=== PATIENT | female | born 1960 | race Caucasian/White ===

== ENCOUNTER 2024-02-22 13:14 | Outpatient (OUT) | payer MEDICARE, MEDICAID, SELFPAY ==
--- NOTE | 2024-02-22 14:32 | P.CN_ITS ---
Consult Note: HPI Data of Consult Patient: new to practice Consult date: 02/22/24 Requesting Physician: Ligia Root MD Primary Care Provider: RAJNI CARDOZO Consult Narrative Reason for consult: left low back pain Narrative: 63yof who presents for evaluation. worsening left low back pain for past 3 months. became worse after a fall. evaluated by spinal surgeon, who believes it is sij mediated. imaging shows multilevel spinal degeneration and sij degeneration. has engaged in a series of provider directed home exercises >6 weeks, without benefit. uses tylenol and advil. denies adverse med side effects. cc:: CC: Ligia Root MD Review of Systems ROS Status of ROS 10 or more systems reviewed and unremark able except as noted in history and below Exam Narrative Exam Narrative: Psych-alert and oriented x 3. Attentive and appropriate, constitutionally normal, displays normal mood and affect per situation.? There are no obvious deficits in memory, reasoning, or intellect.? Skin-no obvious rashes, bruising, erythema noted to the patient's area of pain. Extremities- extremities are warm with minimal edema and palpable pulses. Lumbar-no significant tenderness to palpation noted in the lumbar spine and paraspinal musculature.? Pain is elicited with extension, and lateral rotation of the lumbar spine. Range of motion is slightly diminished with these motions due to pain. Facet loading maneuvers are positive bilaterally and do appear to be concordant with the patient's normal complaints of pain.? Sacroiliac - tender to palpation over left PSIS. Positive Kunal's on left. Positive thigh thrust on left. Coordination remains intact.? Gait remains non-antalgic. Assessment and Plan Assessment and Plan (1) Sacroiliac joint disease: Plan 63yof who presents for evaluation. failed conservative measures, as noted. imaging reviewed, as noted. given symptoms and imaging, prudent to attempt left sij injection under fluoroscopic guidance. she is in agreement. meds reviewed. will trial celebrex 200mg bid prn. follow up after procedure.
== END 2024-02-22 13:15 | disposition home or self-care (01) ==
PROVIDERS: PCP Internal Medicine; Visit Provider Anesthesiology
DX: M53.3 Sacrococcygeal disorders, not elsewhere classified (principal)
CPT/HCPCS: G0463

== ENCOUNTER 2024-02-29 07:33 | Day surgery (SDC) | payer MEDICARE, MEDICAID, SELFPAY ==
[2024-02-29 07:47] VITALS: BP 140/88; PULSE 87; TEMP 36.3; O2SAT 96
[2024-02-29 08:29] VITALS: BP 114/71; BP 128/69; PULSE 77; PULSE 81; O2SAT 92; O2SAT 93
[2024-02-29] MEDS: IOHEXOL 240 MG/ML - 10 ML VIAL 24 MG INJ (08:30)
[2024-02-29] MEDS: BUPIVACAINE HCL 0.25% PF 25 MG/10 ML VIAL 2 ML INJ (08:30)
[2024-02-29] MEDS: LIDOCAINE HCL 2% 400 MG/20 ML MDV INJ (08:30)
[2024-02-29] MEDS: TRIAMCINOLONE ACETONIDE 40 MG/ML VIAL INJ (08:31)
--- NOTE | 2024-02-29 08:31 | W.PM.PROCNOT ---
Date of procedure: 02/29/24 Pre-op diagnosis: Pain due to left sacroiliitis Post-op diagnosis: same as pre-op Procedure: Procedure: Left sacroiliac joint injection Medications: Bupivacaine 0.25% 3cc, kenalog 40mg After informed consent was obtained, the patient was brought to the medical procedure unit and placed in the prone position, when a timeout was completed verifying correct patient, procedure, site, positioning, implant, and/or special equipment.? The skin overlying the area was prepped and draped in standard sterile fashion using alcohol.? A 25-gauge needle was inserted towards the left sacroiliac joint under direct fluoroscopic imaging.? Needle tip was advanced until the joint was encountered.? We instilled a total of 2 mL of solution.? Postoperatively needles were removed.? The patient tolerated the procedure well without complication.? The patient reported reduction in pain symptoms postoperatively. Anesthesia: Local Surgeon: Ligia Root Pathology: none sent Condition: stable Disposition: no change
== END 2024-02-29 08:36 | disposition home or self-care (01) ==
LOC: SURGOUT 07:34
PROVIDERS: PCP Internal Medicine; Visit Provider Anesthesiology
DX: M46.1 Sacroiliitis, not elsewhere classified (principal)
CPT/HCPCS: 27096; J0665; J3301; Q9966

== ENCOUNTER 2024-03-09 09:49 | Outpatient (OUT) | payer MEDICARE, MEDICAID, SELFPAY ==
--- NOTE | 2024-03-09 10:14 | P.CN_ITS ---
Consult Note: HPI Data of Consult Patient: new to practice Consult date: 02/22/24 Requesting Physician: Harper Alvarez NP Primary Care Provider: RAJNI CARDOZO Consult Narrative Reason for consult: left low back pain Narrative: 63yof who presents for evaluation. worsening bilateral low back pain for past 3 months. became worse after a fall. evaluated by spinal surgeon, who believes it is sij mediated. imaging shows multilevel spinal degeneration and sij degeneration. has engaged in a series of provider directed home exercises >6 weeks, without benefit. uses celebrex 100mg bid and tylenol. denies adverse med side effects. recent left SIJ injection providing 80% improvement ongoing. pt would like to discuss moderate to severe right SIJ pain. today 6/10 increasing to 10/10 with standing, walking, stairs, bending, activity. Pain improved with sitting, lying, heat, and sleep. cc:: CC: Harper Alvarez NP Review of Systems ROS Status of ROS 10 or more systems reviewed and unremark able except as noted in history and below Musculoskeletal Reports: joint pain PFSH PFSH Medical History (Updated 02/24/24 @ 10:42 by Consuelo Cotto RN) Rheumatoid arthritis ?M06.9 - Rheumatoid arthritis, unspecified (ICD-10) Anemia ?D64.9 - Anemia, unspecified (ICD-10) Panic disorder ?F41.0 - Panic disorder [episodic paroxysmal anxiety] (ICD-10) PTSD (post-traumatic stress disorder) ?F43.10 - Post-traumatic stress disorder, unspecified (ICD-10) Bipolar 1 disorder ?F31.9 - Bipolar disorder, unspecified (ICD-10) Anxiety ?F41.9 - Anxiety disorder, unspecified (ICD-10) Acid reflux ?K21.9 - Gastro-esophageal reflux disease without esophagitis (ICD-10) BONY treated with BiPAP ?G47.33 - Obstructive sleep apnea (adult) (pediatric) (ICD-10) Sleep apnea ?G47.30 - Sleep apnea, unspecified (ICD-10) COPD (chronic obstructive pulmonary disease) ?J44.9 - Chronic obstructive pulmonary disease, unspecified (ICD-10) CHF (congestive heart failure) ?I50.9 - Heart failure, unspecified (ICD-10) Angina at rest ?I20.89 - Other forms of angina pectoris (ICD-10) Heart attack ?I21.9 - Acute myocardial infarction, unspecified (ICD-10) Surgical History Stented coronary artery ?Z95.5 - Presence of coronary angioplasty implant and graft (ICD-10) Hx of cholecystectomy ?Z90.49 - Acquired absence of other specified parts of digestive tract (ICD- 10) H/O section ?Z98.891 - History of uterine scar from previous surgery (ICD-10) Hx of CABG ?Z95.1 - Presence of aortocoronary bypass graft (ICD-10) Meds Home Medications and Allergies Home Medications ?Medication ?Instructions ?Recorded ?Confirmed ?Type celecoxib 200 mg capsule (Celebrex) 200 mg PO BID 02/23/24 02/29/24 History clonazepam 0.5 mg tablet 1 mg PO DAILY 02/23/24 02/29/24 History doxepin 100 mg capsule 75 mg PO DAILY 02/23/24 02/29/24 History empagliflozin 10 mg tablet 10 mg PO DAILY 02/23/24 02/29/24 History (Jardiance) pregabalin 50 mg capsule (Lyrica) 50 mg PO DAILY 02/23/24 02/29/24 History topiramate 100 mg tablet (Topamax) 100 mg PO BID 02/23/24 02/29/24 History torsemide 40 mg tablet 160 mg PO DAILY 02/23/24 02/29/24 History venlafaxine 150 mg 225 mg PO DAILY 02/23/24 02/29/24 History capsule,extended release 24 hr (Effexor XR) albuterol sulfate 90 mcg/actuation 1 puff inhalation Q4H PRN 02/24/24 02/29/24 History aerosol inhaler shortness of breath or wheezing aripiprazole 15 mg tablet 15 mg PO BEDTIME 02/24/24 02/29/24 History budesonide 160 mcg-glycopyr 9 2 inh inhalation BID 02/24/24 02/29/24 History mcg-formot 4.8 mcg/actuation HFA inhaler (Breztri Aerosphere) calcitonin (salmon) 200 1 spray intranasal (ALT) DAILY 02/24/24 02/29/24 History unit/actuation nasal spray furosemide 40 mg tablet (Lasix) 40 mg PO .MWF 02/24/24 02/29/24 History lamotrigine 150 mg tablet 150 mg PO DAILY 02/24/24 02/29/24 History pantoprazole 40 mg tablet,delayed 40 mg PO DAILY 02/24/24 02/29/24 History release potassium chloride 20 mEq 20 meq PO DAILY 02/24/24 02/29/24 History tablet,extended release spironolactone 25 mg tablet 25 mg PO DAILY 02/24/24 02/29/24 History Allergies Allergy/AdvReac Type Severity Reaction Status Date / Time Penicillins Allergy Unknown Unknown Verified 02/29/24 07:48 Exam Narrative Exam Narrative: Psych-alert and oriented x 3. Attentive and appropriate, constitutionally normal, displays normal mood and affect per situation.? There are no obvious deficits in memory, reasoning, or intellect.? Skin-no obvious rashes, bruising, erythema noted to the patient's area of pain. Extremities- extremities are warm with minimal edema and palpable pulses. Lumbar-no significant tenderness to palpation noted in the lumbar spine and paraspinal musculature.? Pain is elicited with extension, and lateral rotation of the lumbar spine. Range of motion is slightly diminished with these motions due to pain. Facet loading maneuvers are positive bilaterally and do appear to be concordant with the patient's normal complaints of pain.? Sacroiliac - tender to palpation over right PSIS. Positive Kunal's on right. Positive thigh thrust on right. negative exam on left Coordination remains intact.? Gait remains non-antalgic. Assessment and Plan Assessment and Plan (1) Sacroiliac joint disease: Plan 63yof who presents for evaluation. failed conservative measures, as noted. imaging reviewed, as noted. given symptoms and imaging, prudent to attempt right sij injection under fluoroscopic guidance. she is in agreement. meds reviewed. no changes. follow up after procedure.
== END 2024-03-09 09:50 | disposition home or self-care (01) ==
LOC: PM 09:49
PROVIDERS: PCP Internal Medicine; Visit Provider Nurse Practitioner
DX: M53.3 Sacrococcygeal disorders, not elsewhere classified (principal)
CPT/HCPCS: G0463

== ENCOUNTER 2024-03-21 10:26 | Day surgery (SDC) | payer MEDICARE, MEDICAID, SELFPAY ==
[2024-03-21 10:51] VITALS: BP 134/79; PULSE 106; TEMP 36.6; O2SAT 93
[2024-03-21 11:23] VITALS: BP 119/63
[2024-03-21 11:24] VITALS: PULSE 83; O2SAT 89
[2024-03-21 11:25] VITALS: PULSE 85; O2SAT 90
--- NOTE | 2024-03-21 11:25 | W.PM.PROCNOT ---
Date of procedure: 03/21/24 Pre-op diagnosis: Pain due to right sacroiliitis Post-op diagnosis: same as pre-op Procedure: Procedure: Right sacroiliac joint injection Medications: Bupivacaine 0.25% 3cc, kenalog 40mg After informed consent was obtained, the patient was brought to the medical procedure unit and placed in the prone position, when a timeout was completed verifying correct patient, procedure, site, positioning, implant, and/or special equipment.? The skin overlying the area was prepped and draped in standard sterile fashion using alcohol.? A 25-gauge needle was inserted towards the right sacroiliac joint under direct fluoroscopic imaging.? Needle tip was advanced until the joint was encountered.? We instilled a total of 2 mL of solution.? Postoperatively needles were removed.? The patient tolerated the procedure well without complication.? The patient reported reduction in pain symptoms postoperatively. Anesthesia: Local Surgeon: Ligia Root Pathology: none sent Condition: stable Disposition: no change
[2024-03-21] MEDS: BUPIVACAINE HCL 0.25% PF 25 MG/10 ML VIAL 2 ML INJ (11:26)
[2024-03-21] MEDS: TRIAMCINOLONE ACETONIDE 40 MG/ML VIAL INJ (11:27)
[2024-03-21] MEDS: IOHEXOL 240 MG/ML - 10 ML VIAL 12 MG INJ (11:27)
[2024-03-21] MEDS: LIDOCAINE HCL 2% 400 MG/20 ML MDV INJ (11:27)
[2024-03-21 11:28] VITALS: BP 124/78
== END 2024-03-21 11:31 | disposition home or self-care (01) ==
PROVIDERS: PCP Internal Medicine; Visit Provider Anesthesiology
DX: M46.1 Sacroiliitis, not elsewhere classified (principal)
CPT/HCPCS: 27096; J0665; J3301; Q9966

== ENCOUNTER 2024-03-30 09:45 | Outpatient (OUT) | payer MEDICARE, MEDICAID, SELFPAY ==
--- NOTE | 2024-03-30 10:29 | PM.CN ---
Consult Note: HPI Data of Consult Patient: known to practice within the last 3 years Consult date: 02/22/24 Requesting Physician: Harper Alvarez NP Primary Care Provider: RAJNI CARDOZO Consult Narrative Reason for consult: SIJ and left shoulder pain Narrative: 63yof who presents for evaluation. worsening bilateral low back pain for past 3 months. became worse after a fall. evaluated by spinal surgeon, who believes it is sij mediated. imaging shows multilevel spinal degeneration and sij degeneration. has engaged in a series of provider directed home exercises >6 weeks, without benefit. uses celebrex 100mg bid and tylenol. denies adverse med side effects. recent left and right SIJ injection providing 80% improvement ongoing. pt would like to discuss chronic left shoulder pain secondary to OA, previously found significant benefit to injections through prior orthopedic group but shes no longer seeing them. last injection provided >50% improvement greater than 3 months. cc:: CC: Harper Alvarez NP Review of Systems ROS Status of ROS 10 or more systems reviewed and unremarkable except as noted in history and below Musculoskeletal Reports: joint pain PFSH PFSH Medical History (Updated 03/30/24 @ 10:32 by Harper Alvarez NP) Rheumatoid arthritis ?M06.9 - Rheumatoid arthritis, unspecified (ICD-10) Anemia ?D64.9 - Anemia, unspecified (ICD-10) Panic disorder ?F41.0 - Panic disorder [episodic paroxysmal anxiety] (ICD-10) PTSD (post-traumatic stress disorder) ?F43.10 - Post-traumatic stress disorder, unspecified (ICD-10) Bipolar 1 disorder ?F31.9 - Bipolar disorder, unspecified (ICD-10) Anxiety ?F41.9 - Anxiety disorder, unspecified (ICD-10) Acid reflux ?K21.9 - Gastro-esophageal reflux disease without esophagitis (ICD-10) BONY treated with BiPAP ?G47.33 - Obstructive sleep apnea (adult) (pediatric) (ICD-10) Sleep apnea ?G47.30 - Sleep apnea, unspecified (ICD-10) COPD (chronic obstructive pulmonary disease) ?J44.9 - Chronic obstructive pulmonary disease, unspecified (ICD-10) CHF (congestive heart failure) ?I50.9 - Heart failure, unspecified (ICD-10) Angina at rest ?I20.89 - Other forms of angina pectoris (ICD-10) Heart attack ?I21.9 - Acute myocardial infarction, unspecified (ICD-10) Surgical History Stented coronary artery ?Z95.5 - Presence of coronary angioplasty implant and graft (ICD-10) Hx of cholecystectomy ?Z90.49 - Acquired absence of other specified parts of digestive tract (ICD-10) H/O section ?Z98.891 - History of uterine scar from previous surgery (ICD-10) Hx of CABG ?Z95.1 - Presence of aortocoronary bypass graft (ICD-10) Meds Home Medications and Allergies Home Medications ?Medication ?Instructions ?Recorded ?Confirmed ?Type celecoxib 200 mg capsule (Celebrex) 200 mg PO BID 02/23/24 03/21/24 History clonazepam 0.5 mg tablet 1 mg PO DAILY 02/23/24 03/21/24 History doxepin 100 mg capsule 75 mg PO DAILY 02/23/24 03/21/24 History empagliflozin 10 mg tablet 10 mg PO DAILY 02/23/24 03/21/24 History (Jardiance) pregabalin 50 mg capsule (Lyrica) 50 mg PO DAILY 02/23/24 03/21/24 History topiramate 100 mg tablet (Topamax) 100 mg PO BID 02/23/24 03/21/24 History torsemide 40 mg tablet 160 mg PO DAILY 02/23/24 03/21/24 History venlafaxine 150 mg 225 mg PO DAILY 02/23/24 03/21/24 History capsule,extended release 24 hr (Effexor XR) albuterol sulfate 90 mcg/actuation 1 puff inhalation Q4H PRN 02/24/24 03/21/24 History aerosol inhaler shortness of breath or wheezing aripiprazole 15 mg tablet 15 mg PO BEDTIME 02/24/24 03/21/24 History budesonide 160 mcg-glycopyr 9 2 inh inhalation BID 02/24/24 03/21/24 History mcg-formot 4.8 mcg/actuation HFA inhaler (Breztri Aerosphere) calcitonin (salmon) 200 1 spray intranasal (ALT) DAILY 02/24/24 03/21/24 History unit/actuation nasal spray furosemide 40 mg tablet (Lasix) 40 mg PO .MWF 02/24/24 03/21/24 History lamotrigine 150 mg tablet 150 mg PO DAILY 02/24/24 03/21/24 History pantoprazole 40 mg tablet,delayed 40 mg PO DAILY 02/24/24 03/21/24 History release potassium chloride 20 mEq 20 meq PO DAILY 02/24/24 03/21/24 History tablet,extended release spironolactone 25 mg tablet 25 mg PO DAILY 02/24/24 03/21/24 History Allergies Allergy/AdvReac Type Severity Reaction Status Date / Time Penicillins Allergy Unknown Unknown Verified 03/21/24 10:49 Exam Constitutional Documenting provider has reviewed patient's vital signs: yes Common normals: no apparent distress, oriented x3, healthy appearing, alert and well nourished General appearance: cooperative HENMT Common normals: normocephalic, hearing grossly normal bilaterally and moist oral mucous membranes Head and scalp: normocephalic Eye Common normals: PERRL Pupil: PERRL Neck & C-Spine Common normals: full ROM General: normal visual inspection Chest Common normals: inspection of chest normal Respiratory Common normals: normal respiratory effort, no retractions and no use of accessory muscles Back & Pelvis Lumbar spine/lower back: ROM limited and pain with ROM Sacroiliac joints: SI joints normal Extremity Left upper extremity: shoulder joint Other: increased pain over AC joint, positive empty can posterior liftoff and scratch test Neuro Common normals: oriented x3, CN's II-XII intact bilaterally, moves all extremities, no focal motor deficits, no sensory deficits noted and deep tendon reflexes 2+ bilaterally Sensorium/orientation: alert Motor exam: strength 5/5 throughout and no movement abnormalities noted Psych Common normals: mental status grossly normal, thought process normal, cooperative, affect normal, speech normal and activity/motor behavior normal Speech: normal speech Thought process: normal thought process Results Additional Findings Additional findings: If on a controlled substance or opioids, I have checked an [place] report on this patient and there are no aberrancies noted in the prescribing history.??If on a controlled substance or opioid a drug screen was completed and reviewed within the last year, and if there has not been a drug screen completed we ordered one today to monitor higher risk, state monitored pain medication use. As part of providing excellent, safe, comprehensive care, the following was completed at our patient's visit: 1. A medication reconciliation and review to ensure accurate knowledge of current/active medications, including asking our patients to inform us about any [id number] medications or herbal remedies/nutritional supplements/alternative remedies. 2. A review to specifically ensure our patients have had annual screening for screening for depression, screening for tobacco use, and screening for unhealthy alcohol use. For concerning screenings had a discussion with the patient, provided patient education, and recommended follow-up with primary care provider when appropriate. If patient noted with a risk of falling, they received education on strength, gait, and balance training to prevent future risk of falling. Assessment and Plan Assessment and Plan (1) Sacroiliac joint disease: (2) Osteoarthritis of left shoulder: Plan request prior xray from Dr Castro at [facility] left shoulder injection in the office with Dr Root continue current medications continue HEP as tolerated f/u with me in 3 months, sooner if needed
== END 2024-03-30 09:46 | disposition home or self-care (01) ==
LOC: PM 09:46
PROVIDERS: PCP Internal Medicine; Visit Provider Nurse Practitioner
DX: M53.3 Sacrococcygeal disorders, not elsewhere classified (principal); M19.012 Primary osteoarthritis, left shoulder
CPT/HCPCS: G0463

== ENCOUNTER 2024-10-27 08:21 | Outpatient (OUT) | payer MEDICARE, MEDICAID, SELFPAY ==
--- OUTSIDE RECORDS SUMMARY | 2023-06-02 09:30 | XMS_ITS ---
Author Organization [facility] in [place] Address [address] [place] [address] Care Team Providers Care Kettle Worker Name Role Phone None, Unknown or Primary Care Provider Unavailab Michael Soni Unavailable [phone] REASON FOR VISIT [place] f/u Encounters Encounter Location Date Provider Diagnosis [facility] [address] [place] [address] 06/02/2023 Michael Singh Plan Of Treatment No Information Progress Notes * Monet YORK DDOB: [birth year] (64 yo F)Acc No.[id number]:06/02/2023 UNLOCKED PROGRESS NOTE Progress Note Patient: Javid ESPITIA Monet Mumtaz Provider: Mumtaz Singh MD :1960 A ge:63 Y S ex:Female Date:06/02/2023 Address[address] [place] Pcp:Unknown or None Subjective: * Chief Complaints: * 1 . [place] f/u. * Medical History: Objective: * Vitals: Assessment: Plan: * Treatment: * * Electronic signature of Michael Singh MD, [id number] on 10/27/2024 at 08:26 AM EDT Sign off status: Pending Visit Status: C ANC (Cancelled) * Provider: Mumtaz Singh MD Date: 06/02/2023 Generated for Printi ng/Faxing/eTransmitting on: 0 10/27/2024 08:26 AM EDT
--- OUTSIDE RECORDS SUMMARY | 2023-06-08 08:45 | XMS_ITS ---
Author Organization [facility] Address [address] [place] [id number] Care Team Providers Care Instructional Services Specialist Name Role Phone Saqib Alcala Unavailable [phone] REASON FOR VISIT Anemia & Pre-DM Social History Sex Assigned At : Social History Observation Description Sex Assigned At Female Encounters Encounter Location Date Provider Diagnosis [place] [address] [place] [id number] 06/08/2023 Saqib Alcala Plan Of Treatment No Information Progress Notes * Analy YORKhDOB:1960 (64 yo F)Acc No.[id number]:06/08/2023 Medical Note Patient: Monet JONES Provider: JAH Dexter :1960 A ge:63 Y S ex:Female Date:06/08/2023 Address:[address], [id number] Subjective: * Chief Complaints: * 1 . Anemia & Pre-DM. * Medical History: Objective: * Vitals: Assessment: Plan: * Treatment: * Billing Information: * Visit Code: * Procedure Codes: * Electronic signature of JAH Elder on 10/27/2024 at 08:25 AM EDT Sign off status: Pending * Provider: JAH Dexter Date: 06/08/2023 Generated for Kiki ng/Faxing/eTransmitting on: 0 10/27/2024 08:25 AM EDT
--- OUTSIDE RECORDS SUMMARY | 2024-10-27 08:25 | XMS_ITS | Encounter Summary ---
Author Organization [facility] Address [id number] [address] [place] [address] Care Team Providers Care Warping Machine Operator Name Role Phone JoanMichael gonsalez Janae CABRERA Primary Care Provider [phone] Reason for Visit * Reason Onset Date Comments Med Refill 11/23/2023 Encounter Details Date Type Department Care Team (Late st Contact Info) Description 11/23/2023 Refill [facility] Internal Medicine - Family Medicine [address] [place] [phone] Sofya Coe CMA Social History Tobacco Use Types Packs/Day Years Used Date Smoking Tobacco: Former Cigarettes 1 40 0 09/1981 - 09/2021 Smokeless Tobacco: Never Comments:5-6 cigerettes a da y Alcohol Use Standard Drinks/Week Comments Not Currently 0 (1 standard drink = 0.6 oz pur e alcohol) last use 15 years ago [facility] Utilities Answer Date Recorded In the past 12 months has th e electric, gas, oil, or water company threatened to shut off services in your home? No 08/28/2023 Social Connection and Isolat ion Panel [NHANES] Answer Date Recorded In a typical week, how many times do you talk on the phone with family, friends, or neighbors? Three times a week 07/25/2023 How often do you get togethe r with friends or relatives? Three times a week 07/25/2023 How often do you attend [facility] or [facility] services? More than 4 times per year 07/25/2023 Do you belong to any clubs o r organizations such as anabaptist groups, unions, fraternal or athletic groups, or school groups? No 07/25/2023 How often do you attend meet ings of the clubs or organizations you belong to? Never 07/25/2023 Are you , , di vorced, , never , or living with a partner? 07/25/2023 AUDIT-C Answer Date Recorded Q1: How often do you have a drink containing alcohol? Never 07/25/2023 Q2: How many drinks containi ng alcohol do you have on a typical day when you are drinking? Patient does not drink Q3: How often do you have si x or more drinks on one occasion? Never 07/25/2023 Overall Financial Resource Strain (CARDIA) Answe r Date Recorded How hard is it for you to pa y for the very basics like food, housing, medical care, and heating? Somewhat hard 07/25/2023 PHQ-2 Answer Date Recorded Total Score 0 11/02/2023 [facility] of Occupat ional Health - Occupational Stress Questionnaire Answer Date Recorded Do you feel stress - tense, restless, nervous, or anxious, or unable to sleep at night because your mind is troubled all the time - these days? Only a little 07/25/2023 Exercise Vital Sign Answer Date Recorde d On average, how many days pe r week do you engage in moderate to strenuous exercise (like a brisk walk)? 0 days 07/25/2023 On average, how many minutes do you engage in exercise at this level? 0 min 07/25/2023 PRAPARE - Transportation Answer Date Re corded In the past 12 months, has l ack of transportation kept you from medical appointments or from getting medications? No 06/2023 In the past 12 months, has l ack of transportation kept you from meetings, work, or from getting things needed for daily living? No 08/28/2023 Housing Instability Answer Date Recorde d Are you worried or concerned that in the next two months you may not have stable housing that you own, rent or stay in as a part of a household? No 08/28/2023 Childcare Answer Date Recorded Do problems getting child ca re make 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 to work or study? No 07/25/2023 Employment Answer Date Recorded Do you need help finding a [facility] career center and/or a training program? No 07/25/2023 Hunger Screening Answer Date Recorded Within the past 12 months we worried whether our food would run out before we got money to buy more. Never True 11/02/2023 Within the past 12 months th e food we bought just didn't last and we didn't have money to get more. Never True 11/02/2023 Purpose - Life Answer Date Recorded I have a purpose and direction in my life. Stron gly Agree 07/25/2023 Comments No Sex and Gender Information Value Date Recorded Sex Assigned at Female 09/03/2020 8:51 AM EDT Legal Sex Female 2:26 PM EDT Gender Identity Female 09/03/2020 8:51 AM EDT Sexual Orientation Straight 03/28/2023 8: 29 PM EST documented as of this encounter Plan of Treatment Upcoming Encounters Date Type Department Care Team (Late st Contact Info) Description 10/27/2024 4:15 PM EDT Office Visit [facility] Internal Medicine - Family Medicine [address] [place] [phone] Michael Steiner DO [address] [place] [address] 11/01/2024 4:30 PM EDT Appointment [facility] - Total Rehab [address] [place] [phone] Cervicogenic headache 11/07/2024 2:30 PM EDT Office Visit [facility] Internal Medicine - Family Medicine [address] [place] [phone] Michael Steiner, [address] [place] [address] 11/28/2024 2:00 PM EDT [facility] [address] [place] [phone] Inez Cook, SUPERVISOR VAT HOUSE-CIRCUIT [employer] MAGISTRATE [address] [place] [address] documented as of this encounter Goals Goal Patient Goal Type Associated Problems Recent Progress Patient-Stated? Author home General Yes Jimena Snider LSW Note: Evaluation of progress towards goal: under assessment documented as of this encounter Visit Diagnoses Not on filedocumented in this encounter Additional Health Concerns Infection Onset Date Last Indicated Resolved Time COVID-19 Rule-Out 12/17/2023 12/17/2023 12/17/2023 1:50 PM EDT Assessment Noted Time PHQ-9 Depression Total Score: 0 11/02/19 3:42 PM EDT documented as of this encounter Care Teams Warping Machine Operator Relationship Specialty Start Date End Date Michael Steiner DO [address] [place] [address] PCP - General Internal Medicine 12/17/23 documented as of this encounter
--- OUTSIDE RECORDS SUMMARY | 2024-10-27 08:25 | XMS_ITS | Encounter Summary ---
Author Organization [facility] Address [id number] [address] [place] [address] Care Team Providers Care Director Digital Communications Name Role Phone Vickyumair Michael Janae CABRERA Primary Care Provider [phone] Reason for Visit * Reason Onset Date Comments Med Refill 12/24/2023 Encounter Details Date Type Department Care Team (Late st Contact Info) Description 12/24/2023 Refill [facility] Internal Medicine - Family Medicine [address] [place] [phone] Monica Johnston CMA Social History Tobacco Use Types Packs/Day Years Used Date Smoking Tobacco: Former Cigarettes 1 40 0 09/1981 - 09/2021 Smokeless Tobacco: Never Comments:5-6 cigerettes a da y Alcohol Use Standard Drinks/Week Comments Not Currently 0 (1 standard drink = 0.6 oz pur e alcohol) last use 15 years ago [facility] Utilities Answer Date Recorded In the past 12 months has th [employer], gas, oil, or water company threatened [...] week 07/25/2023 How often do you attend [facility] or caodaism services? More than 4 times per year 07/25/2023 Do you belong to any clubs o r organizations such as yazidi groups, unions, fraternal or athletic groups, or [...] Answer Date Recorded Total Score 0 11/02/2023 [facility] of Occupat ional Health - Occupational [...] Recorded Do you need help finding a [facility] career center and/or a training program? No 07/25/2023 Hunger Screening Answer Date Recorded Within the past 12 months we worried whether our food would run out before we got money to buy more. Never True 12/17/2023 Within the past 12 months th e food we bought just didn't last and we didn't have money to get more. Never True 12/17/2023 Purpose - Life Answer Date Recorded I have a purpose and direction in my life. Stron gly Agree 07/25/2023 Comments No Sex and Gender Information Value Date Recorded Sex Assigned at Female 09/03/2020 8:51 AM EDT Legal Sex Female 2:26 PM EDT Gender Identity Female 09/03/2020 8:51 AM EDT Sexual Orientation Straight 03/28/2023 8: 29 PM EST documented as of this encounter Miscellaneous Notes * Telephone Encounter - Michael Steiner DO - 12/24/2023 10:18 AM EDT Message noted. This is not prescribed by me. She needs to call her neurologist * Telephone Encounter - Monica Johnston CMA - 12/24/2023 10:18 AM EDT Called left vm to cb * Telephone Encounter - Cathleen Arreola - 12/24/2023 10:18 AM EDT Contacted patient, please close documented in this encounter Plan of Treatment Upcoming Encounters Date Type Department Care Team (Late st Contact Info) Description 10/27/2024 4:15 PM EDT Office Visit [facility] Internal Medicine - Family Medicine [address] [place] [address] Michael Steiner DO [address] [facility] [place] [address] 11/01/2024 4:30 PM EDT Appointment [facility] - Total Rehab [address] [place] [phone] Cervicogenic headache 11/07/2024 2:30 PM EDT Office Visit [facility] Internal Medicine - Family Medicine [address] [facility] [place] [address] Michael Steiner, DO [address] [place] [address] 11/28/2024 2:00 PM EDT Office Visit [facility] - Heart Failure Clinic [address] [place] [phone] Inez Cook, BAKER BREAD-PBX SUPERVISOR [address] [place] [address] documented as of this encounter Goals Goal Patient Goal Type Associated Problems Recent Progress Patient-Stated? Author home General Yes Jimena Snider LSW Note: Evaluation of progress towards goal: under assessment documented as of this encounter Visit Diagnoses Not on filedocumented in this encounter Additional Health Concerns Assessment Noted Time PHQ-9 Depression Total Score: 0 11/02/19 3:42 PM EDT documented as of this encounter Care Teams Director Digital Communications Relationship Specialty Start Date End Date Michael Steiner DO [address] [facility] [place] [address] PCP - General Internal Medicine 12/17/23 documented as of this encounter
--- OUTSIDE RECORDS SUMMARY | 2024-10-27 08:25 | XMS_ITS | Encounter Summary ---
Author Organization [employer] [facility] Address [id number] [address] [place] [address] Care Team Providers Care Lidding Machine Operator Name Role Phone Michael Steiner DO Primary Care Provider [phone] Encounter Details Date Type Department Care Team (Late st Contact Info) Description 07/09/2023 Orders Only [facility] Internal Medicine - Family Medicine [address] [place] [address] Michael Steiner DO [address] [place] [address] Chronic heart failure with preserved ejection fraction ([facility]) Social History Tobacco Use Types Packs/Day Years Used Date Smoking Tobacco: Former Cigarettes 1 40 0 09/1981 - 09/2021 Smokeless Tobacco: Former Chew Comments:5-6 cigerettes a da y Alcohol Use Standard Drinks/Week Comments No 0 (1 standard drink = 0.6 oz pur e alcohol) Social Connection and Isolation Panel [NHANES] A nswer Date Recorded In a typical week, how many times do you talk on the phone with family, friends, or neighbors? Twice a week 01/09/2020 How often do you get together with friends or re latives? Twice a week 01/09/2020 How often do you attend orthodoxy or jew serv ices? Never 01/09/2020 Do you belong to any clubs o r organizations such as orthodoxy groups, unions, fraternal or athletic groups, or school groups? No 01/09/2020 How often do you attend meet ings of the clubs or organizations you belong to? Never 01/09/2020 Marital Status Not on file 01/09/2020 Overall Financial Resource Strain (CARDIA) Answe r Date Recorded How hard is it for you to pa y for the very basics like food, housing, medical care, and heating? Not hard at all 01/09/2020 PHQ-2 Answer Date Recorded Total Score 0 07/01/2023 PRAPARE - Transportation Answer Date Re corded In the past 12 months, has l ack of transportation kept you from medical appointments or from getting medications? No 12/26 In the past 12 months, has l ack of transportation kept you from meetings, work, or from getting things needed for daily living? No 01/09/2020 Childcare Answer Date Recorded Do problems getting child ca re make 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 to work or study? No 01/09/2020 Employment Answer Date Recorded Do you need help finding a [employer] career center and/or a training program? No 01/09/2020 Hunger Screening Answer Date Recorded Within the past 12 months we worried whether our food would run out before we got money to buy more. Never True 07/01/2023 Within the past 12 months th e food we bought just didn't last and we didn't have money to get more. Never True 07/01/2023 Purpose - Life Answer Date Recorded Purpose and direction in life Unknown Comments No Sex and Gender Information Value [...] Internal Medicine - Family Medicine [address] [place] [address] Michael Steiner, DO [address] [facility] [place] [address] 11/01/2024 4:30 PM EDT Appointment [facility] [address] [place] [phone] Cervicogenic headache 11/07/2024 2:30 PM EDT Office Visit [facility] Internal Medicine - Family Medicine [address] [place] [phone] Michael Steiner DO [address] [place] [address] 11/28/2024 2:00 PM EDT Office Visit [facility] - Heart Failure Clinic [address] [place] [phone] Inez Cook, REFRIGERATION PERSON-ETHNOGRAPHER [address] [place] [address] documented as of this encounter Visit Diagnoses Diagnosis Chronic heart failure with preserved ejection fraction ([facility]-HCC) Cervicogenic headache Headache documented in this encounter Additional Health Concerns Infection Onset Date Last Indicated Resolved Time COVID-19 Rule-Out 07/24/2023 07/24/2023 07/24/2023 10:44 PM EDT COVID-19 Rule-Out 07/25/2023 07/25/2023 07/25/2023 7:25 PM EDT COVID-19 Rule-Out 12/17/2023 12/17/2023 12/17/2023 1:50 PM EDT Assessment Noted Time PHQ-9 Depression Total Score: 0 07/01/19 2:19 PM EST documented as of this encounter Care Teams Lidding Machine Operator Relationship Specialty Start Date End Date Michael Steiner DO [address] [place] [address] PCP - General Internal Medicine 12/17/23 documented as of this encounter
--- OUTSIDE RECORDS SUMMARY | 2024-10-27 08:25 | XMS_ITS | Encounter Summary ---
Author Organization [facility]o s tem Address [id number] [address] [place] [address] Care Team Providers Care Director Reactor Projects Name Role Phone Michael Steiner DO Primary Care Provider [phone] Encounter Details Date Type Department Care Team (Late st Contact Info) Description 01/26/2024 Orders Only [facility] Internal Medicine - Family Medicine [address] [place] [address] Michael Steiner DO [address] [place] [address] Peripheral polyneuropathy (Primary Dx) Social History Tobacco Use Types Packs/Day Years Used Date Smoking Tobacco: Former Cigarettes 1 40 0 09/1981 - 09/2021 Smokeless Tobacco: Never Comments:5-6 cigerettes a da y Alcohol Use Standard Drinks/Week Comments Not Currently 0 (1 standard drink = 0.6 oz pur e alcohol) last use 15 years ago [facility] Utilities Answer Date Recorded In the past 12 months has [employer], gas, oil, or water company threatened to [...] week 07/25/2023 How often do you attend chur ch or temple services? More than 4 times per year 07/25/2023 Do you belong to any clubs o r organizations such as moravian groups, unions, fraternal or athletic groups, or [...] PHQ-2 Answer Date Recorded Total Score 0 01/04/2024 [facility] of Occupat ional Health - Occupational Stress [...] Recorded Do you need help finding a [facility] career center and/or a training program? No 07/25/2023 Hunger Screening Answer Date Recorded Within the past 12 months we worried whether our food would run out before we got money to buy more. Never True 01/04/2024 Within the past 12 months th e food we bought just didn't last and we didn't have money to get more. Never True 01/04/2024 Purpose - Life Answer Date Recorded I [...] Internal Medicine - Family Medicine [address] [place] [address] Michael Steiner, [address] [place] [address] 11/01/2024 4:30 PM EDT Appointment [facility] [place] - Total Rehab [address] [place] [phone] Cervicogenic headache 11/07/2024 2:30 PM EDT Office Visit [facility] Internal Medicine - Family Medicine [address] [place] [address] Michael Steiner, [address] [place] [address] 11/28/2024 2:00 PM EDT Office Visit [facility] - Heart Failure Clinic [address] [place] [address] Inez Cook, AQUATIC LABORER-MARINE BIOLOGIST [address] [place] [address] documented as of this encounter Goals Goal Patient Goal Type Associated Problems Recent Progress Patient-Stated? Author home General Yes Jimena Snider LSW Note: Evaluation of progress towards goal: under assessment documented as of this encounter Visit Diagnoses Diagnosis Peripheral polyneuropathy- Primary Cervicogenic headache Headache documented in this encounter Additional Health Concerns Assessment Noted Time PHQ-9 Depression Total Score: 0 01/04/20 1:01 PM EDT documented as of this encounter Care Teams Director Reactor Projects Relationship Specialty Start Date End Date Michael Steiner DO [address] [place] [address] PCP - General Internal Medicine 12/17/23 documented as of this encounter
--- OUTSIDE RECORDS SUMMARY | 2024-10-27 08:25 | XMS_ITS | Encounter Summary ---
Author Organization [facility] Address [id number] [address] [place] [address] Care Team Providers Care Railroad Signal Operator Name Role Phone Michael Steiner DO Primary Care Provider [phone] Reason for Visit * Reason Comments Med Refill Encounter Details Date Type Department Care Team (Late st Contact Info) Description 06/10/2023 Refill [facility] Pulmonary/Sleep Medicine [address] [address] Grace Meadows DO [address] [address] Social History Tobacco Use Types Packs/Day Years [...] week 01/09/2020 How often do you attend mandaeism or cheondoism serv ices? Never 01/09/2020 Do you belong to any clubs o r organizations such as mandaeism groups, unions, fraternal or athletic groups, or [...] PHQ-2 Answer Date Recorded Total Score 0 06/01/2023 PRAPARE - Transportation Answer Date Re corded [...] Recorded Do you need help finding a [employer] center and/or a training program? No 01/09/2020 Hunger Screening Answer Date Recorded Within the past 12 months we worried whether our food would run out before we got money to buy more. Never True 06/01/2023 Within the past 12 months th e food we bought just didn't last and we didn't have money to get more. Never True 06/01/2023 Purpose - Life Answer Date Recorded Purpose and direction in life Unknown Comments No Sex and Gender Information Value Date Recorded Sex Assigned at Female 09/03/2020 8:51 AM EDT Legal Sex Female 2:26 PM EDT Gender Identity Female 09/03/2020 8:51 AM EDT Sexual Orientation Straight 03/28/2023 8: 29 PM EST documented as of this encounter Miscellaneous Notes * Telephone Encounter - Shari Garcia RN - 06/10/2023 6:03 AM EST Patient needs to contact office regarding request for antibiotic. Need additional information/clarification documented in this encounter Plan of Treatment Upcoming Encounters Date Type Department Care Team (Late st Contact Info) Description 10/27/2024 4:15 PM EDT Office Visit [facility] Internal Medicine - Family Medicine [address] [place] [address] Michael Steiner DO [address] [place] [address] 11/01/2024 4:30 PM EDT [facility] Rehab [address] [place] [phone] Cervicogenic headache 11/07/2024 2:30 PM EDT Office Visit [facility] Internal Medicine - Family Medicine [address] [place] [phone] Michael Steiner DO [address] [place] [address] 11/28/2024 2:00 PM EDT Office Visit [facility] - Heart Failure Clinic [address] [place] [phone] Inez Cook, COW TENDER-WHEEL ALIGNMENT TECHNICIAN [address] [place] [phone] documented as of this encounter Visit Diagnoses Not on filedocumented in this encounter Additional Health Concerns Infection Onset Date Last Indicated Resolved Time COVID-19 Rule-Out 07/24/2023 07/24/2023 07/24/2023 10:44 PM EDT COVID-19 Rule-Out 07/25/2023 07/25/2023 07/25/2023 7:25 PM EDT COVID-19 Rule-Out 12/17/2023 12/17/2023 12/17/2023 1:50 PM EDT Assessment Noted Time PHQ-9 Depression Total Score: 0 06/01/19 24 1:58 PM EST documented as of this encounter Care Teams Railroad Signal Operator Relationship Specialty Start Date End Date Michael Stiener DO [address] [place] [address] PCP - General Internal Medicine 12/17/23 documented as of this encounter
--- OUTSIDE RECORDS SUMMARY | 2024-10-27 08:25 | XMS_ITS | Encounter Summary ---
[facility] Address [id number] [address] [place] [address] Care Team Providers Care Sound Printer Name Role Phone Michael Steiner DO Primary Care Provider [phone] Encounter Details Date Type Department Care Team (Late st Contact Info) Description 12/24/2023 Orders Only [facility] Internal Medicine - Family Medicine [address] [place] [address] Michael Steiner DO [address] [place] [address] Social History Tobacco Use Types Packs/Day Years Used Date Smoking Tobacco: Former Cigarettes 1 40 0 09/1981 - 09/2021 Smokeless Tobacco: Never Comments:5-6 cigerettes a da y Alcohol Use Standard Drinks/Week Comments Not Currently 0 (1 standard drink = 0.6 oz pur e alcohol) last use 15 years ago [facility] Utilities Answer Date Recorded In the past 12 months has [employer] electric, gas, oil, or water company threatened [...] often do you attend chur ch or mosque services? More than 4 times per year 07/25/2023 Do you belong to any clubs o r organizations such as anabaptism groups, unions, fraternal or athletic groups, or [...] Answer Date Recorded Total Score 0 11/02/2023 [facility] of Occupat ional Health - Occupational Stress [...] Recorded Do you need help finding a [facility] career center and/or a training [...] Description 10/27/2024 4:15 PM EDT Office Visit [facility] Internal Medicine - Family Medicine [address] [place] [address] Michael Steiner DO [address] [place] [address] 11/01/2024 4:30 PM EDT Appointment [facility] Rick [facility] [place] - Total Rehab [address] [place] [phone] Cervicogenic headache 11/07/2024 2:30 PM EDT Office Visit [facility] Internal Medicine - Family Medicine [address] [place] [address] Michael Steiner, [address] [place] [address] 11/28/2024 2:00 PM EDT Office Visit [facility] - Heart Failure Clinic [address] [place] [phone] Inez Cook, UPHOLSTERY CLEANER-BOOT AND SHOE LABORER [address] [place] [address] documented as of this encounter Goals Goal [...] documented as of this encounter Care Teams Sound Printer Relationship Specialty Start Date End Date Michael Steiner DO [address] [place] [address] PCP - General Internal Medicine 12/17/23 documented as of this encounter
--- OUTSIDE RECORDS SUMMARY | 2024-10-27 08:25 | XMS_ITS | Encounter Summary ---
Author Organization [facility] Address [id number] [address] [place] [address] Care Team Providers Care High School Assistant Football Coach Name Role Phone JoanMichael gonsalez Janae CABRERA Primary Care Provider [phone] Reason for Visit * Reason Onset Date Comments Med Refill 12/02/2023 Encounter Details Date Type Department Care Team (Late st Contact Info) Description 12/02/2023 Refill [facility] - Family Medicine [address] [place] [phone] Tosin Reyes CMA Social History Tobacco Use Types Packs/Day Years Used Date Smoking Tobacco: Former Cigarettes 1 40 0 09/1981 - 09/2021 Smokeless Tobacco: Never Comments:5-6 cigerettes a da y Alcohol Use Standard Drinks/Week Comments Not Currently 0 (1 standard drink = 0.6 oz pur e alcohol) last use 15 years ago [facility] Utilities Answer Date Recorded In the past 12 months has th [employer] electric, gas, oil, or water company threatened [...] week 07/25/2023 How often do you attend [facility] or holiness services? More than 4 times per year [...] Answer Date Recorded Total Score 0 11/02/2023 [facility] of Occupat ional Health - Occupational Stress [...] Recorded Do you need help finding a [facility] career center and/or a training program? [...] Description 10/27/2024 4:15 PM EDT Office Visit [facility] Internal Medicine - Family Medicine [address] [place] [address] Michael Steiner DO [address] [place] [address] 11/01/2024 4:[address] [facility] - Total Rehab [address] [place] [phone] Cervicogenic headache 11/07/2024 2:30 PM EDT Office Visit [facility] Internal Medicine - Family Medicine [address] [place] [address] Michael Steiner, [address] [place] [address] 11/28/2024 2:00 PM EDT Office Visit [facility] - Heart Failure Clinic [address] [place] [phone] Inez Cook, INK BLENDER-DEPUTY ADMINISTRATOR [address] [place] [phone] documented as of this encounter Goals Goal [...] documented as of this encounter Care Teams High School Assistant Football Coach Relationship Specialty Start Date End Date Michael Steiner DO [address] [place] [address] PCP - General Internal Medicine 12/17/23 documented as of this encounter
--- OUTSIDE RECORDS SUMMARY | 2024-10-27 08:25 | XMS_ITS | Encounter Summary ---
Author Organization [facility] Address [facility] [id number] [address] [place] [address] Care Team Providers Care Groover Operator Name Role Phone JoanMichael gonsalez Janae CABRERA Primary Care Provider [phone] Encounter Details Date Type Department Care Team (Late st Contact Info) Description 03/23/2024 Orders Only [facility] Internal [facility] - Family Medicine [address] [place] [address] Sofya Coe CMA Chronic respiratory failure with hypoxia and hypercapnia ([facility]) Social History Tobacco Use Types Packs/Day Years Used Date Smoking Tobacco: Former Cigarettes 1 40 0 09/1981 - 09/2021 Smokeless Tobacco: Never Comments:5-6 cigerettes a da y Alcohol Use Standard Drinks/Week Comments Not Currently 0 (1 standard drink = 0.6 oz pur e alcohol) last use 15 years ago [facility] Utilities Answer Date Recorded In the past 12 months has [employer], gas, oil, or water [employer] threatened to shut off services in your [...] week 07/25/2023 How often do you attend [facility] or christianity services? More than 4 times per year 07/25/2023 Do you belong to any clubs o r organizations such as evangelical groups, unions, fraternal or athletic groups, or [...] housing, medical care, and heating? Somewhat hard 03/05/2024 PHQ-2 Answer Date Recorded Total Score 0 01/04/2024 [facility] of Occupat ional Health - [...] medical appointments or from getting medications? No 12/2023 In the past 12 months, has l ack of transportation kept you from meetings, work, or from getting things needed for daily living? No 03/05/2024 Housing Instability Answer Date Recorde d Are you worried or concerned that in the next two months you may not have stable housing that you own, rent or stay in as a part of a household? No 03/05/2024 Childcare Answer Date Recorded Do problems getting child ca re make 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 to work or study? No 07/25/2023 Employment Answer Date Recorded Do you need help finding a [facility] career center and/or a training program? No 07/25/2023 Hunger Screening Answer Date Recorded Within the past 12 months we worried whether our food would run out before we got money to buy more. Never True 03/05/2024 Within the past 12 months th e food we bought just didn't last and we didn't have money to get more. Never True 03/05/2024 Purpose - Life Answer Date Recorded I [...] Description 10/27/2024 4:15 PM EDT Office Visit [facility] Internal Medicine - Family Medicine [address] [place] [phone] Michael Steiner, [address] [place] [address] 11/01/2024 4:30 PM EDT Appointment [facility] - Total Rehab [address] [place] [phone] Cervicogenic headache 11/07/2024 2:30 PM EDT Office Visit [facility] Internal Medicine - Family Medicine [address] [place] [address] Michael Steiner, [address] [place] [address] 11/28/2024 2:00 PM EDT Office Visit [facility] - Heart Failure Clinic [address] [place] [address] Inez Cook, SUPERVISOR POLICY CHANGE CLERKS-CRAYON SAWYER [address] [place] [address] documented as of this encounter Goals Goal Patient Goal Type Associated Problems Recent Progress Patient-Stated? Author home General Yes Jimena Snider LSW Note: Evaluation of progress towards goal: under assessment documented as of this encounter Procedures Procedure Name Priority Date/Time Associated Diagnosis Comments AMB REFERRAL TO PULMONOLOGY Routine 03/17/2024 Chronic respiratory failure with hypoxia and hypercapnia (CMS-HCC) documented in this encounter Results * [facility] [place], [place] (03/17/2024) 03/17/2024 Michael Steiner DO OUTPATIENT REFERRAL ORDERABLES F inal Result MANUALLY TRANSCRIBED RESULTS documented in this encounter Visit Diagnoses Diagnosis Chronic respiratory failure with hypoxia and hypercapnia (CMS-HCC) Cervicogenic headache Headache documented in this encounter Additional Health Concerns Assessment Noted Time PHQ-9 Depression Total Score: 0 01/04/20 24 1:01 PM EDT documented as of this encounter Care Teams Groover Operator Relationship Specialty Start Date End Date Michael Steiner DO [address] [place] [address] PCP - General Internal Medicine 12/17/23 documented as of this encounter
--- OUTSIDE RECORDS SUMMARY | 2024-10-27 08:25 | XMS_ITS | Encounter Summary ---
Author Organization [facility] Address [id number] [address] [place] [address] Care Team Providers Care Automation Operator Name Role Phone Michael Steiner DO Primary Care Provider [phone] Reason for Referral * Consultation (Routine) - Pending Review Specialty Diagnoses / Procedures Referred By Rick t Referred To Contact Pulmonary Medicine Diagnoses Chronic respiratory failure with hypoxia and hypercapnia (CMS-HCC) Michael Steiner DO [address] [place] [address] Phone: tel: fax: Sydnie Guerrero DO [address] [place] [address] Phone: tel: fax: Referral ID Status Reason Start Date Expiration Date Visits Requested Visits Authorized [id number] Pending Review Specialty Services Required 02/08/2025 1 1 Encounter Details Date Type Department Care Team (Late st Contact Info) Description 02/09/2024 Orders Only [facility] - Family Medicine [address] [place] [address] Michael Steiner DO [address] [place] [address] Chronic respiratory failure with hypoxia and hypercapnia (CMS-HCC) (Primary Dx) Social History Tobacco Use Types Packs/Day Years Used Date Smoking Tobacco: Former Cigarettes 1 40 0 09/1981 - 09/2021 Smokeless Tobacco: Never Comments:5-6 cigerettes a da y Alcohol Use Standard Drinks/Week Comments Not Currently 0 (1 standard drink = 0.6 oz pur e alcohol) last use [address] [facility] Utilities Answer Date Recorded In the past 12 months has th e [employer], gas, oil, or water [employer] threatened to shut off services in your [...] week 07/25/2023 How often do you attend [facility] or pentecostalism services? More than 4 times per year 07/25/2023 Do you belong to any clubs o r organizations such as gnosticism groups, unions, fraternal or athletic groups, or [...] Answer Date Recorded Total Score 0 01/04/2024 [facility] of Occupat ional Health - Occupational Stress [...] Recorded Do you need help finding a [facility] career center and/or a training program? [...] Medicine - Family Medicine [address] [place] [address] Michael Steiner, DO [address] [place] [address] 11/01/2024 4:30 PM EDT Appointment [facility] [address] [place] [address] Cervicogenic headache 11/07/2024 2:30 PM EDT Office Visit [facility] Internal Medicine - Family Medicine [address] [place] [address] Michael Steiner, DO [address] [place] [address] 11/28/2024 2:00 PM EDT Office Visit [facility] - Heart Failure Clinic [address] [place] [phone] Inez Cook, BAND LOG MILL AND CARRIAGE OPERATOR-CYLINDER BLOCK MECHANIC [address] [place] [address] documented as of this encounter Goals Goal Patient Goal Type Associated Problems Recent Progress Patient-Stated? Author home General Yes Jimena Snider LSW Note: Evaluation of progress towards goal: under assessment documented as of this encounter Results * Referral to [facility] Pulmonary Medicine - [place], [place] (03/17/2024) 03/17/2024 Michael Steiner DO OUTPATIENT REFERRAL ORDERABLES F inal Result MANUALLY TRANSCRIBED RESULTS documented in this encounter Visit Diagnoses Diagnosis Chronic respiratory failure with hypoxia and hypercapnia (CMS-HCC)- Primary Cervicogenic headache Headache documented in this encounter Additional Health Concerns Assessment Noted Time PHQ-9 Depression Total Score: 0 01/04/20 24 1:01 PM EDT documented as of this encounter Care Teams Automation Operator Relationship Specialty Start Date End Date Michael Steiner DO [address] [place] [address] PCP - General Internal Medicine 12/17/23 documented as of this encounter
--- OUTSIDE RECORDS SUMMARY | 2024-10-27 08:25 | XMS_ITS | Encounter Summary ---
Author [facility] Address [id number] [address] [place] [address] Care Team Providers Care Biofuels Manager Name Role Phone Michael Steiner DO Primary Care Provider [phone] Encounter Details Date Type Department Care Team (Late st Contact Info) Description 04/29/2023 Documentation [facility] In [address] [place] [phone] Pao Hernandez, ACID POLYMERIZATION OPERATOR-WELDING OPERATOR [address] [place] [address] Social History Tobacco Use Types Packs/Day Years [...] week 01/09/2020 How often do you attend taoism or advent serv ices? Never 01/09/2020 Do you belong to any clubs o r organizations such as taoism groups, unions, fraternal or athletic groups, or [...] PHQ-2 Answer Date Recorded Total Score 0 08/06/2020 [facility] - Transportation Answer Date Re corded [...] Recorded Do you need help finding a [employer] career center and/or a training program? No 01/09/2020 Hunger Screening Answer Date Recorded Within the past 12 months we worried whether our food would run out before we got money to buy more. Never True 03/31/2023 Within the past 12 months th e food we bought just didn't last and we didn't have money to get more. Never True 03/31/2023 Purpose - Life Answer Date Recorded Purpose and direction in life Unknown Comments No Sex and Gender Information Value Date Recorded Sex Assigned at Female 09/03/2020 8:51 AM EDT Legal Sex Female 2:26 PM EDT Gender Identity Female 09/03/2020 8:51 AM EDT Sexual Orientation Straight 03/28/2023 8: 29 PM EST documented as of this encounter Mental Status * Question Answer Entry Date Author Overall Cognitive Status X 04/29/2023 9:22 AM EST Jenniefr Hamm OTR/Janae documented in this encounter Plan of Treatment Upcoming Encounters Date Type Department Care Team (Late st Contact Info) Description 10/27/2024 4:15 PM EDT Office Visit [facility] - Family Medicine [address] [place] [address] Michael Steiner, DO [address] [place] [address] 11/01/2024 4:30 PM EDT Appointment [facility] [address] [place] [address] Cervicogenic headache 11/07/2024 2:30 PM EDT Office Visit [facility] Internal Medicine - Family Medicine [address] [place] [address] Michael Steiner DO [address] [place] [address] 11/28/2024 2:00 PM EDT Office Visit [facility] - Heart Failure Clinic [address] [place] [phone] Inez Cook, ACID POLYMERIZATION OPERATOR-WELDING OPERATOR [address] [place] [address] documented as of this encounter Visit Diagnoses Not on filedocumented in this encounter Additional Health Concerns Infection Onset Date Last Indicated Resolved Time COVID-19 Positive 04/13/2023 04/13/2023 04/29/2023 12:46 PM EST Enteric Rule-Out 04/28/2023 04/28/2023 04/29/2023 12:46 PM EST COVID-19 Rule-Out 07/24/2023 07/24/2023 07/24/2023 10:44 PM EDT COVID-19 Rule-Out 07/25/2023 07/25/2023 07/25/2023 7:25 PM EDT COVID-19 Rule-Out 12/17/2023 12/17/2023 12/17/2023 1:50 PM EDT Assessment Noted Time PHQ-9 Depression Total Score: 0 08/07/19 21 6:36 PM EDT documented as of this encounter Care Teams Biofuels Manager Relationship Specialty Start Date End Date Michael Steiner DO [address] [place] [address] PCP - General Internal Medicine 12/17/23 documented as of this encounter
--- OUTSIDE RECORDS SUMMARY | 2024-10-27 08:25 | XMS_ITS | Encounter Summary ---
Author Organization [facility] Address [id number] [address] [place] [address] Care Team Providers Care Suppository Molding Machine Operator Name Role Phone Michael Steiner DO Primary Care Provider [phone] Encounter Details Date Type Department Care Team (Late st Contact Info) Description 02/03/2024 Telephone [facility] Pulmonary/Sleep Medicine [address] [phone] Shari Garcia RN Social History Tobacco Use Types Packs/Day Years Used Date Smoking Tobacco: Former Cigarettes 1 40 0 09/1981 - 09/2021 Smokeless Tobacco: Never Comments:5-6 cigerettes a da y Alcohol Use Standard Drinks/Week Comments Not Currently 0 (1 standard drink = 0.6 oz pur e alcohol) last use 15 years ago [facility] Utilities Answer Date Recorded In the past 12 months has [employer], gas, oil, or water [employer] threatened to shut off services in your [...] week 07/25/2023 How often do you attend [facility] or pentecostal services? More than 4 times per year 07/25/2023 Do you belong to any clubs o r organizations such as sikhism groups, unions, fraternal or athletic groups, or [...] Answer Date Recorded Total Score 0 01/04/2024 [facility] of Occupat ional Health - Occupational Stress [...] Telephone Encounter - Shari Garcia RN - 02/03/2024 1:06 PM EDT Norma, friend/HIPAA called nurse line and requested a script fo POC. [facility] from a Fire Fighters Dispatcher. Patient was to be seen in our office on 01-14-24. Office appt was cancelled d/t patient insurance isnot accepted at our office. Patient will need to contact her insurance company and find out what healthcare liaison will be covered under her insurance. Then contact Dr Steiner for a referral. Norma agreeable documented in this encounter Plan of Treatment Upcoming Encounters Date Type Department Care Team (Late st Contact Info) Description 10/27/2024 4:15 PM EDT Office Visit [facility] - Family Medicine [address] [facility] [place] [phone] Michael Steiner DO [address] [place] [address] 11/01/2024 4:30 PM EDT Appointment [facility] - Total Rehab [address] [place] [phone] Cervicogenic headache 11/07/2024 2:30 PM EDT Office Visit [facility] Internal Medicine - Family Medicine [address] [place] [address] Michael Steiner DO [address] [facility] [place] [address] 11/28/2024 2:00 PM EDT Office Visit [facility] - Heart Failure Clinic [address] [place] [address] Inez Cook, RAG BALER-MILK BOTTLING MACHINE OPERATOR [address] [place] [address] documented as of this encounter Goals Goal [...] documented as of this encounter Care Teams Suppository Molding Machine Operator Relationship Specialty Start Date End Date Michael Steiner DO [address] [place] [address] PCP - General Internal Medicine 12/17/23 documented as of this encounter
--- OUTSIDE RECORDS SUMMARY | 2024-10-27 08:25 | XMS_ITS | Encounter Summary ---
Author Organization [employer] s tem Address [id number] [address] [place] [address] Care Team Providers Care Sugar Cane Farm Manager Name Role Phone Michael Steiner DO Primary Care Provider [phone] Encounter Details Date Type Department Care Team (Late st Contact Info) Description 01/25/2024 [facility]phone [facility] Family Medicine [address] [place] [address] Juan Diego Esquivel CMA Social History Tobacco Use Types Packs/Day Years Used Date Smoking Tobacco: Former Cigarettes 1 40 0 09/1981 - 09/2021 Smokeless Tobacco: Never Comments:5-6 cigerettes a da y Alcohol Use Standard Drinks/Week Comments Not Currently 0 (1 standard drink = 0.6 oz pur e alcohol) last use 15 years ago [facility] Utilities Answer Date Recorded In the past 12 months has [employer], gas, oil, or water [employer] threatened to shut off services in your [...] week 07/25/2023 How often do you attend [facility] or mosque services? More than 4 times per year 07/25/2023 Do you belong to any clubs o r organizations such as advent groups, unions, fraternal or athletic groups, or [...] Answer Date Recorded Total Score 0 01/04/2024 [facility] of Occupat ional Health [...] Recorded Do you need help finding a [facility] career center and/or a training program? [...] encounter Miscellaneous Notes * Telephone Encounter - Juan Diego Esquivel CMA - 01/25/2024 1:37 PM EDT Pt called states the TOPAMAX is not working. Feet and legs hurt terrible. Could she please go back on the Gabapentin? * Telephone Encounter - Michael Steiner DO - 01/25/2024 1:37 PM EDT Message noted. I will send in an Rx for Pregabalin 50 mg twice a day to replace the gabapentin. We will discuss ather follow up appointment. * Telephone Encounter - Sofya Coe CMA - 01/25/2024 1:37 PM EDT Spoke with the patient and she understands documented in this encounter Plan of Treatment Upcoming Encounters Date Type Department Care Team (Late st Contact Info) Description 10/27/2024 4:15 PM EDT Office Visit [facility] - Family Medicine [address] [place] [phone] Michael Steiner DO [address] [facility] [place] [place] [address] 11/01/2024 4:30 PM EDT Appointment [facility] [address] [place] [address] Cervicogenic headache 11/07/2024 2:30 PM EDT Office Visit [facility] - Family Medicine [address] [facility] [place] [address] Michael Steiner DO [address] [facility] [place] [address] 11/28/2024 2:00 PM EDT Office Visit [facility] - Heart Failure Clinic [address] [place] [address] Inez Cook, SURVEY AND MAPPING TECHNICIAN-TRAVEL NURSE [address] [place] [address] documented as of this encounter Goals Goal [...] documented as of this encounter Care Teams Sugar Cane Farm Manager Relationship Specialty Start Date End Date Michael Steiner DO [address] [place] [address] PCP - General Internal Medicine 12/17/23 documented as of this encounter
--- OUTSIDE RECORDS SUMMARY | 2024-10-27 08:25 | XMS_ITS | Encounter Summary ---
Author [facility] Address [id number] [address] [place] [address] Care Team Providers Care Syrup Filterer Name Role Phone Michael Steiner DO Primary Care Provider [phone] Encounter Details Date Type Department Care Team (Late st Contact Info) Description 11/23/2023 Orders Only [facility] Internal Medicine - Family Medicine [address] [place] [address] Michael Steiner DO [address] [place] [address] Social History Tobacco Use Types Packs/Day Years Used Date Smoking Tobacco: Former Cigarettes 1 40 0 09/1981 - 09/2021 Smokeless Tobacco: Never Comments:5-6 cigerettes a da y Alcohol Use Standard Drinks/Week Comments Not Currently 0 (1 standard drink = 0.6 oz pur e alcohol) last use 15 years ago [facility] Utilities Answer Date Recorded In the past 12 months has [employer], gas, oil, or water company threatened [...] often do you attend chur ch or jain services? More than 4 times per year 07/25/2023 Do you belong to any clubs o r organizations such as adventist groups, unions, fraternal or athletic groups, or [...] Answer Date Recorded Total Score 0 11/02/2023 [facility] of Occupat ional Health - Occupational Stress [...] Recorded Do you need help finding a [facility] career center and/or a training program? [...] Description 10/27/2024 4:15 PM EDT Office Visit [facility] Internal Medicine - Family Medicine [address] [place] [address] Michael Steiner DO [address] [place] [address] 11/01/2024 4:30 PM EDT Appointment [facility] Rick Young [place] - Total Rehab [address] [place] [phone] Cervicogenic headache 11/07/2024 2:30 PM EDT Office Visit [facility] Internal Medicine - Family Medicine [address] [place] [address] Michael Steiner, [address] [place] [address] 11/28/2024 2:00 PM EDT Office Visit [facility] - Heart Failure Clinic [address] [place] [address] Inez Cook, JOY LOADER-SOLICITING FREIGHT AGENT [address] [place] [address] documented as of this encounter Goals Goal [...] documented as of this encounter Care Teams Syrup Filterer Relationship Specialty Start Date End Date Michael Steiner DO [address] [place] [address] PCP - General Internal Medicine 12/17/23 documented as of this encounter
--- OUTSIDE RECORDS SUMMARY | 2024-10-27 08:25 | XMS_ITS | Encounter Summary ---
Author Organization [employer] Address [id number] [address] [place] [address] Care Team Providers Care Cna Instructor Name Role Phone Michael Steiner DO Primary Care Provider [phone] Encounter Details Date Type Department Care Team (Late st Contact Info) Description 07/31/2023 [facility] [address] [place] [phone] Antoinette Sanchez CNA Social History Tobacco Use Types Packs/Day Years Used Date Smoking Tobacco: Former Cigarettes 1 40 0 09/1981 - 09/2021 Smokeless Tobacco: Former Chew Comments:5-6 cigerettes a da y Alcohol Use Standard Drinks/Week Comments Not Currently 0 (1 standard drink = 0.6 oz pur e alcohol) last use 15 years ago [facility] Utilities Answer Date Recorded In the past 12 months has [employer], gas, oil, or water [email or web address] threatened to shut off services in your home? No 07/25/2023 Social Connection and Isolat ion Panel [NHANES] Answer Date Recorded In a typical week, how many times do you talk on the phone with family, friends, or neighbors? Three times a week 07/25/2023 How often do you get togethe r with friends or relatives? Three times a week 07/25/2023 How often do you attend chur or religion services? More than 4 times per year [...] Answer Date Recorded Total Score 0 07/01/2023 [facility] of Occupat ional Health - [...] medical appointments or from getting medications? No 06/27 In the past 12 months, has l ack of transportation kept you from meetings, work, or from getting things needed for daily living? No 07/25/2023 Housing Instability Answer Date Recorde d Are you worried or concerned that in the next two months you may not have stable housing that you own, rent or stay in as a part of a household? No 07/25/2023 Childcare Answer Date Recorded Do problems getting child ca re make 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 to work or study? No 07/25/2023 Employment Answer Date Recorded Do you need help finding a l ocal career center and/or a training program? No 07/25/2023 Hunger Screening Answer Date Recorded Within the past 12 months we worried whether our food would run out before we got money to buy more. Never True 07/25/2023 Within the past 12 months th e food we bought just didn't last and we didn't have money to get more. Never True 07/25/2023 Purpose - Life Answer Date Recorded I [...] Description 10/27/2024 4:15 PM EDT Office Visit [facility] Internal Medicine - Family Medicine [address] [place] [address] Michael Steiner, DO [address] [place] [address] 11/01/2024 4:30 PM EDT Appointment [facility] - Total Rehab [address] [place] [phone] Cervicogenic headache 11/07/2024 2:30 PM EDT Office Visit [facility] Internal Medicine - Family Medicine [address] [place] [address] Michael Steiner, [address] [place] [address] 11/28/2024 2:00 PM EDT Office Visit [facility] - Heart Failure Clinic [address] [place] [phone] Inez Cook, TOBACCO PACKER-MANUFACTURING PLANT CONTROLLER [address] [place] [address] documented as of this encounter Visit Diagnoses Not on filedocumented in this encounter Additional Health Concerns Infection Onset Date Last Indicated Resolved Time COVID-19 Rule-Out 12/17/2023 12/17/2023 12/17/2023 1:50 PM EDT Assessment Noted Time PHQ-9 Depression Total Score: 0 07/01/19 2:19 PM EST documented as of this encounter Care Teams Cna Instructor Relationship Specialty Start Date End Date Michael Steiner DO [address] [place] [address] PCP - General Internal Medicine 12/17/23 documented as of this encounter
--- OUTSIDE RECORDS SUMMARY | 2024-10-27 08:25 | XMS_ITS | Encounter Summary ---
Author Organization [facility] Address [id number] [address] [place] [address] Care Team Providers Care Industrial Electrician Journeyman Name Role Phone Michael Steiner DO Primary Care Provider [phone] Reason for Visit * Reason Onset Date Comments Med Refill 02/24/2024 Encounter Details Date Type Department Care Team (Late st Contact Info) Description 02/24/2024 Refill [facility] Internal Medicine - Family Medicine [address] [place] [address] Michael Steiner DO [address] [place] [address] Peripheral polyneuropathy Social History Tobacco Use Types Packs/Day Years Used Date Smoking Tobacco: Former Cigarettes 1 40 0 09/1981 - 09/2021 Smokeless Tobacco: Never Comments:5-6 cigerettes a da y Alcohol Use Standard Drinks/Week Comments Not Currently 0 (1 standard drink = 0.6 oz pur e alcohol) last use 15 years ago [facility] Utilities Answer Date Recorded In the past 12 months has [employer], gas, oil, or water company threatened to [...] How often do you attend chur or mormonism services? More than 4 times per year 07/25/2023 Do you belong to any clubs o r organizations such as restoration groups, unions, fraternal or athletic groups, or [...] Answer Date Recorded Total Score 0 01/04/2024 [facility] of Occupat ional Health - Occupational Stress [...] Recorded Do you need help finding a [facility] career center and/or a training program? No 07/25/2023 Hunger Screening Answer Date Recorded Within the past 12 months we worried whether our food would run out before we got money to buy more. Never True 02/19/2024 Within the past 12 months th e food we bought just didn't last and we didn't have money to get more. Never True 02/19/2024 Purpose - Life Answer Date Recorded I [...] Internal Medicine - Family Medicine [address] [place] [address] Michael Steiner, [address] [place] [address] 11/01/2024 4:30 PM EDT Appointment [facility] [place] - Total Rehab [address] [place] [phone] Cervicogenic headache 11/07/2024 2:30 PM EDT Office Visit [facility] - Family Medicine [address] [place] [address] Michael Steiner, [address] [place] [address] 11/28/2024 2:00 PM EDT Office Visit [facility] - Heart Failure Clinic [address] [place] [address] Inez Cook, FITTINGS FINISHER-ADMINISTRATIVE SUPPORT ASSOC [address] [place] [phone] documented as of this encounter Goals Goal Patient Goal Type Associated Problems Recent Progress Patient-Stated? Author home General Yes Jimena Snider LSW Note: Evaluation of progress towards goal: under assessment documented as of this encounter Visit Diagnoses Diagnosis Peripheral polyneuropathy Cervicogenic headache Headache documented in this encounter Additional Health Concerns Assessment Noted Time PHQ-9 Depression Total Score: 0 01/04/20 24 1:01 PM EDT documented as of this encounter Care Teams Industrial Electrician Journeyman Relationship Specialty Start Date End Date Michael Steiner DO [address] [place] [address] PCP - General Internal Medicine 12/17/23 documented as of this encounter
--- OUTSIDE RECORDS SUMMARY | 2024-10-27 08:25 | XMS_ITS | Encounter Summary ---
Author Organization [facility] tem Address [id number] [address] [place] [address] Care Team Providers Care Shower Enclosure Installer Name Role Phone Michael Steiner DO Primary Care Provider [phone] Reason for Referral * Misc (Routine) - Pending Review Specialty Diagnoses / Procedures Referred By Contac t Referred To Contact Diagnoses Chronic respiratory failure with hypoxia and hypercapnia (CMS-HCC) Chronic heart failure with preserved ejection fraction (CMS-HCC) Procedures Oxygen Therapy Michael Steiner DO [address] [place] [address] Phone: tel: fax: Referral ID Status Reason Start Date Expiration Date V isits Requested Visits Authorized [id number] Pending Review 12/30/2023 12/29/2024 1 1 Encounter Details Date Type Department Care Team (Late st Contact Info) Description 12/30/2023 Orders Only [facility] Internal Medicine - Family Medicine [address] [place] [address] Michael Steiner DO [address] [place] [address] Chronic respiratory failure with hypoxia and hypercapnia (CMS-HCC) (Primary Dx); Chronic heart failure with preserved ejection fraction (CMS-HCC) Social History Tobacco Use Types Packs/Day Years Used Date Smoking Tobacco: Former Cigarettes 1 40 0 09/1981 - 09/2021 Smokeless Tobacco: Never Comments:5-6 cigerettes a da y Alcohol Use Standard Drinks/Week Comments Not Currently 0 (1 standard drink = 0.6 oz pur e alcohol) last use 15 years ago [facility] Utilities Answer Date Recorded In the past 12 months has e [employer], gas, oil, or water [employer] threatened to shut off services in your [...] often do you attend chur ch or restorationism services? More than 4 times per year 07/25/2023 Do you belong to any clubs o r organizations such as alevism groups, unions, fraternal or athletic groups, or [...] Answer Date Recorded Total Score 0 11/02/2023 [facility] of Occupat ional Health - Occupational Stress [...] Recorded Do you need help finding a [employer] career center and/or a training program? No [...] - Family Medicine [address] [place] [address] Michael Steiner, DO [address] [place] [address] 11/01/2024 4:30 PM EDT Appointment [facility] - Total Rehab [address] [place] [phone] Cervicogenic headache 11/07/2024 2:30 PM EDT Office Visit [facility] Internal Medicine - Family Medicine [address] [place] [address] Michael Steiner, DO [address] [place] [address] 11/28/2024 2:00 PM EDT Office Visit [facility] - Heart Failure Clinic [address] [place] [phone] Inez Cook, PAPER COATER-MACHINE OPERATOR HOP PICKER [address] [place] [phone] documented as of this encounter Goals Goal Patient Goal Type Associated Problems Recent Progress Patient-Stated? Author home General Yes Jimena Snider LSW Note: Evaluation of progress towards goal: under assessment documented as of this encounter Visit Diagnoses Diagnosis Chronic respiratory failure with hypoxia and hypercapnia (CMS-HCC)- Primary Chronic heart failure with preserved ejection fraction (CMS-HCC) Cervicogenic headache Headache documented in this encounter Additional Health Concerns Assessment Noted Time PHQ-9 Depression Total Score: 0 11/02/19 3:42 PM EDT documented as of this encounter Care Teams Shower Enclosure Installer Relationship Specialty Start Date End Date Michael Steiner DO [address] [place] [address] PCP - General Internal Medicine 12/17/23 documented as of this encounter
--- OUTSIDE RECORDS SUMMARY | 2024-10-27 08:25 | XMS_ITS | Encounter Summary ---
Author Organization [employer] Address [id number] [address] [place] [address] Care Team Providers Care Senior Hris Analyst Name Role Phone Obdulia Michael Janae CABRERA Primary Care Provider Reason for Visit * Reason Onset Date Comments Leg Swelling 07/21/2022 Encounter Details Date Type Department Care Team (Late st Contact Info) Description 07/21/2022 Telephone [facility] Cardiology [address] [place] [address] Mahsa Fam RN Leg Swelling Social History Tobacco Use Types Packs/Day Years Used Date Smoking Tobacco: Former Cigarettes Q uit: 09/2021 Smokeless Tobacco: Former Chew Comments:5-6 cigerettes [...] week 01/09/2020 How often do you attend buddhist or buddhism serv ices? Never 01/09/2020 Do you belong to any clubs o r organizations such as buddhist groups, unions, fraternal or athletic groups, or [...] Recorded Do you need help finding a [employer] career center and/or a training program? No 01/09/2020 Purpose - Life Answer Date Recorded Purpose and direction in life Unknown Comments No Sex and Gender Information Value Date Recorded Sex Assigned at Female 09/03/2020 8:51 AM EDT Legal Sex Female 2:26 PM EDT Gender Identity Female 09/03/2020 8:51 AM EDT Sexual Orientation Straight 03/28/2023 8: 29 PM EST COVID-19 Exposure Response Date Recorded In the last month, have you been in contact with someone who was confirmed or suspected to have Coronavirus / COVID-19? No / Unsure 07/17/2022 7:33 PM EDT documented as of this encounter Miscellaneous Notes * Telephone Encounter - Mahsa Fam RN - 07/21/2022 8:31 AM EDT Received p/c from pt's friend Norma Meron. Would like permission to restart metalozone. 5 mg. Hasn't been on since 02/2022. Pt sttaes weight last week at [facility] was 264# This morning is 280#. Feet have been swollen for a week.Today feet are swollen up to knees. Denies chest pain but has increased SOB. Has been taking Bumex 4 mg in AM and 2mg PM.Pt never went had labs redrawn after starting KCL. Sandi Hatfield Will message for advice. * Telephone Encounter - Nikolay Garcia - 07/21/2022 8:31 AM EDT Please have patient take that metolazone every other day. Do not do it more than that. Recheck BMP at end of week to make sure kidneys and electrolytes are stable. If symptoms persist we need to get her back into the office. Thank you! * Telephone Encounter - Mahsa Fam RN - 07/21/2022 8:31 AM EDT Instructions called to friend Norma Chance. documented in this encounter Plan of Treatment Upcoming Encounters Date Type Department Care Team (Late st Contact Info) Description 10/27/2024 4:15 PM EDT Office Visit [facility] Internal Medicine - Family Medicine [address] [place] [address] Michael Steiner DO [address] [place] [address] 11/01/2024 4:30 PM EDT [facility]ment [facility] [address] [place] [address] Cervicogenic headache 11/07/2024 2:30 PM EDT Office Visit [facility] Internal Medicine - Family Medicine [address] [place] [address] Michael Steiner, [address] [place] [address] 11/28/2024 2:00 PM EDT Office Visit [facility] - Heart Failure Clinic [address] [facility] [place] [address] Inez Cook, PRODUCT CONTROLLER-LEADERSHIP PROGRAM ASSOCIATE [address] [place] [address] documented as of this encounter Results * (ABNORMAL) Basic Metabolic Panel (07/25/2022 11:24 AM EDT) Sodium 138 134 - 146 mmol/L 07/25/2022 3:16 PM EDT [facility] Potassium, Bld 2.8(L) 3.5 - 5.0 mmol/L 07/25/2022 3:16 PM EDT [facility] Chloride 93(L) 98 - 109 mmol/L 07/25/2022 3:16 PM EDT [facility] CO2 29 22 - 32 mmol/L 07/25/2022 3:16 PM EDT [facility] Anion gap 16(H) 5 - 15 mmol/L 07/25/2022 3:16 PM EDT [facility] BUN 29(H) 5 - 23 mg/dL 07/25/2022 3:16 PM EDT [facility] Creatinine 2.20(H) 0.40 - 1.00 mg/dL 07/25/2022 3:16 PM EDT [facility] Comment:METHOD TRACEABLE TO IDMS STANDARD Glucose 135(H) 65 - 99 mg/dL 07/25/2022 3:16 PM T [facility] Calcium 10.8(H) 8.5 - 10.5 mg/dL 07/25/2022 3:16 PM EDT [facility] eGFR (CKD-EPI)non-ra ce dependent 25(L) >59 ml/min/1.7 3sq.m 07/25/2022 3:16 PM T [facility] Comment: Reported eGFR is based on the CKD-EPI 2020 equation that does not use a race coefficient. PLASMA 07/25/2022 11:2 4 AM EDT 07/25/2022 11:25 AM EDT us Nikolay Garcia PA-C LAB BLOOD ORDERABLES Fin al Result SKYLER [facility] [address], [address] [place] [address] documented in this encounter Visit Diagnoses Diagnosis Shortness of breath- Primary Cervicogenic headache Headache documented in this encounter Additional Health Concerns Infection Onset Date Last Indicated Resolved Time COVID-19 Rule-Out 04/13/2023 04/13/2023 04/13/2023 2:19 PM EST COVID-19 Positive 04/13/2023 04/13/2023 04/29/2023 12:46 PM EST Enteric Rule-Out 04/28/2023 04/28/2023 04/29/2023 12:46 PM EST COVID-19 Rule-Out 07/24/2023 07/24/2023 07/24/2023 10:44 PM EDT COVID-19 Rule-Out 07/25/2023 07/25/2023 07/25/2023 7:25 PM EDT COVID-19 Rule-Out 12/17/2023 12/17/2023 12/17/2023 1:50 PM EDT Assessment Noted Time PHQ-9 Depression Total Score: 0 08/07/19 21 6:36 PM EDT documented as of this encounter Care Teams Senior Hris Analyst Relationship Specialty Start Date End Date Michael Steiner DO [address] [place] [address] PCP - General Internal Medicine 12/17/23 documented as of this encounter
--- OUTSIDE RECORDS SUMMARY | 2024-10-27 08:25 | XMS_ITS | Encounter Summary ---
Author Organization [employer] tem Address [id number] [address] [place] [address] Care Team Providers Care Life Sciences Teacher Name Role Phone Michael Steiner DO Primary Care Provider [phone] Encounter Details Date Type Department Care Team (Late st Contact Info) Description 11/06/2023 Orders Only [facility] Internal Medicine - Family Medicine [address] [place] [address] Michael Steiner DO [address] [place] [address] Chronic heart failure with preserved ejection fraction ([facility]-HCC) (Primary Dx) Social History Tobacco Use Types Packs/Day Years Used Date Smoking Tobacco: Former Cigarettes 1 40 0 09/1981 - 09/2021 Smokeless Tobacco: Never Comments:5-6 cigerettes a da y Alcohol Use Standard Drinks/Week Comments Not Currently 0 (1 standard drink = 0.6 oz pur e alcohol) last use 15 years ago [facility] Utilities Answer Date Recorded In the past 12 months has [employer], gas, oil, or water [email or web address] threatened to shut off services in your [...] often do you attend chur ch or yazdanism services? More than 4 times per year 07/25/2023 Do you belong to any clubs o r organizations such as pentecostalism groups, unions, fraternal or athletic groups, or [...] Answer Date Recorded Total Score 0 11/02/2023 [facility] of Occupat ional Health - Occupational Stress [...] Recorded Do you need help finding a [facility] career center and/or a training [...] Internal Medicine - Family Medicine [address] [place] [address] Michael Steiner, [address] [place] [address] 11/01/2024 4:30 PM EDT Appointment [facility] [place] - Total Rehab [address] [place] [phone] Cervicogenic headache 11/07/2024 2:30 PM EDT Office Visit [facility] Medicine - Family Medicine [address] [place] [address] Michael Steiner, [address] [place] [address] 11/28/2024 2:00 PM EDT Office Visit [facility] - Heart Failure Clinic [address] [place] [address] Inez Cook, SIPHON OPERATOR-DIE SINKER [address] [place] [address] documented as of this encounter Goals Goal Patient Goal Type Associated Problems Recent Progress Patient-Stated? Author home General Yes Jimena Snider LSW Note: Evaluation of progress towards goal: under assessment documented as of this encounter Visit Diagnoses Diagnosis Chronic heart failure with preserved ejection fraction (CMS-HCC)- Primary Cervicogenic headache Headache documented in this encounter Additional Health Concerns Infection Onset Date Last Indicated Resolved Time COVID-19 Rule-Out 12/17/2023 12/17/2023 12/17/2023 1:50 PM EDT Assessment Noted Time PHQ-9 Depression Total Score: 0 11/02/19 3:42 PM EDT documented as of this encounter Care Teams Life Sciences Teacher Relationship Specialty Start Date End Date Michael Steiner DO [address] [place] [address] PCP - General Internal Medicine 12/17/23 documented as of this encounter
--- OUTSIDE RECORDS SUMMARY | 2024-10-27 08:25 | XMS_ITS | Encounter Summary ---
Author Organization [facility] Address [id number] [address] [place] [address] Care Team Providers Care Development Intern Name Role Phone Michael Steiner DO Primary Care Provider [phone] Encounter Details Date Type Department Care Team (Late st Contact Info) Description 12/02/2023 Orders Only [facility] Internal Medicine - Family Medicine [address] [place] [address] Michael Steiner DO [address] [place] [address] Social History Tobacco Use Types Packs/Day Years Used Date Smoking Tobacco: Former Cigarettes 1 40 0 09/1981 - 09/2021 Smokeless Tobacco: Never Comments:5-6 cigerettes a da y Alcohol Use Standard Drinks/Week Comments Not Currently 0 (1 standard drink = 0.6 oz pur e alcohol) last use 15 years ago [facility] Utilities Answer Date Recorded In the past 12 months has [employer], gas, oil, or water company threatened [...] often do you attend chur ch or religion services? More than 4 times per year 07/25/2023 Do you belong to any clubs o r organizations such as muslim groups, unions, fraternal or athletic groups, or [...] Answer Date Recorded Total Score 0 11/02/2023 [facility] of Occupat ional Health - Occupational [...] Recorded Do you need help finding a [facility] career center and/or a training [...] Description 10/27/2024 4:15 PM EDT Office Visit [facility] Internal Medicine - Family Medicine [address] [place] [address] Michael Steiner DO [address] [place] [address] 11/01/2024 4:30 PM EDT Appointment [facility] Rick Young [place] - Total Rehab [address] [place] [phone] Cervicogenic headache 11/07/2024 2:30 PM EDT Office Visit [facility] Internal Medicine - Family Medicine [address] [place] [address] Michael Steiner, [address] [place] [address] 11/28/2024 2:00 PM EDT Office Visit [facility] - Heart Failure Clinic [address] [place] [address] Inez Cook, LEAD LOADER-SVP OF DIGITAL [address] [place] [address] documented as of this encounter Goals Goal [...] documented as of this encounter Care Teams Development Intern Relationship Specialty Start Date End Date Michael Steiner DO [address] [place] [address] PCP - General Internal Medicine 12/17/23 documented as of this encounter
--- OUTSIDE RECORDS SUMMARY | 2024-10-27 08:25 | XMS_ITS | Encounter Summary ---
Author Organization [employer] Address [id number] [address] [place] [address] Care Team Providers Care Special Forces Warrant Officer Name Role Phone Obdulia Michael Janae CABRERA Primary Care Provider [phone] Encounter Details Date Type Department Care Team (Late st Contact Info) Description 07/30/2023 Telephone [facility] Pul[facility]/Sleep Medicine [address] [place] [phone] Shari Garcia RN Social History Tobacco Use Types Packs/Day Years Used Date Smoking Tobacco: Former Cigarettes 1 40 0 09/1981 - 09/2021 Smokeless Tobacco: Former Chew Comments:5-6 cigerettes a da y Alcohol Use Standard Drinks/Week Comments Not Currently 0 (1 standard drink = 0.6 oz pur e alcohol) last use 15 years ago [facility] Utilities Answer Date Recorded In the past 12 months has [employer], gas, oil, or water [employer] threatened to shut off services in [...] week 07/25/2023 How often do you attend [facility] or quaker services? More than 4 times per year 07/25/2023 Do you belong to any clubs o r organizations such as latter-day groups, unions, fraternal or athletic groups, or [...] Answer Date Recorded Total Score 0 07/01/2023 [facility] of Occupat ional [...] Recorded Do you need help finding a [facility] career center and/or a training program? [...] Telephone Encounter - Shari Garcia RN - 07/30/2023 4:02 PM EDT Patient called nurse line and left message requesting portable oxygen concentrator. Please review and advise * Telephone Encounter - Grace Meadows DO - 07/30/2023 4:02 PM EDT Patient recently prescribed O2 by PCP after hospitalization. Portable O2 ordered for ambulatory O2.Can arrange portable O2 concentrator with DME to rent for trip which would be something that she does herself or will need conserver device testing for POC setting done prior to Rx for device. * Telephone Encounter - Thang Vora RN - 07/30/2023 4:02 PM EDT Faxed order for conserver device testing to [facility] documented in this encounter Plan of Treatment Upcoming Encounters Date Type Department Care Team (Late st Contact Info) Description 10/27/2024 4:15 PM EDT Office Visit [facility] Internal Medicine - Family Medicine [address] [place] [phone] Michael Steiner DO [address] [place] [address] 11/01/2024 4:[address] [facility] - Total Rehab [address] [place] [address] Cervicogenic headache 11/07/2024 2:30 PM EDT Office Visit [facility] Internal Medicine - Family [facility] [address] [place] [phone] Michael Steiner DO [address] [place] [address] 11/28/2024 2:00 PM EDT Office Visit [facility] - Heart Failure Clinic [address] [place] [phone] Inez Cook, AUTISM SPECIALIST-BALLOON MAKER [address] [place] [address] documented as of this encounter Visit Diagnoses Not on filedocumented in this encounter Additional Health Concerns Infection Onset Date Last Indicated Resolved Time COVID-19 Rule-Out 12/17/2023 12/17/2023 12/17/2023 1:50 PM EDT Assessment Noted Time PHQ-9 Depression Total Score: 0 07/01/19 2:19 PM EST documented as of this encounter Care Teams Special Forces Warrant Officer Relationship Specialty Start Date End Date Michael Steiner DO [address] [place] [address] PCP - General Internal Medicine 12/17/23 documented as of this encounter
--- OUTSIDE RECORDS SUMMARY | 2024-10-27 08:25 | XMS_ITS | Encounter Summary ---
Author Organization [facility] Address [id number] [address] [place] [address] Care Team Providers Care Health Researcher Name Role Phone JoanMichael gonsalez Janae CABRERA Primary Care Provider [phone] Reason for Visit * Reason Onset Date Comments Transition Of Care 07/28/2023 Encounter Details Date Type Department Care Team (Late st Contact Info) Description 07/28/2023 [facility]phone [facility] [address] [place] [phone] Joan Gunderson RN Transition Of Care Social History Tobacco Use Types Packs/Day Years [...] week 07/25/2023 How often do you attend [facility] or lutheran services? More than 4 times per year [...] Answer Date Recorded Total Score 0 07/01/2023 [facility] of Occupat ional Health - Occupational [...] Recorded Do you need help finding a [facility] career center and/or a training program? No [...] encounter Miscellaneous Notes * Telephone Encounter - Joan Gunderson RN - 07/28/2023 2:46 PM EDT Images from the original note were not included. Transition of Care Additional Questions/Concerns Requiring PCP Follow-Up: -Patient does not have a hospital follow up appointment scheduled with her PCP at this time. She has an established patient appointment scheduled on 08.10.23. This documentation is being used for Transition of Care purposes: Yes Goal: Patient will demonstrate a safe transition from hospital to home. Diagnosis on Discharge: Chronic respiratory failure with hypoxia and hypercapnia Discharge Specialty: Pulmonology Name of Discharging Facility: [facility] Date of Facility Discharge: 07.25.23-07.27.23 Date of Interactive Contact and Name of Anesthesiologist/Physician: 07.28.23 1978 Spoke with the patient. Medication Review Completed: No -We discussed the changes that were made to her medications at discharge. She declines to review her complete medication list. She has no questions about her medications at this time. Follow Up Appointments with Providers: Primary: Michael Steiner Jr, DO 08.10.23 1 pm Specialty: Heart Failure Clinic 08.03.23 10 am Review of Pending Lab/Diagnostic Tests and Plan for Completion: -Sleep study is scheduled on 08.11.23. Assessment and Support of Treatment Regimen Adherence and Medication Management: -Patient reports that she is feeling better. -Patient denies any chest pain, shortness of breath fever or chills. -Patient continues to have an occasional dry cough. -Patient is now using 2 liters of oxygen around the clock. We discussed oxygen safety. -Patient usually weighs herself every other day. We discussed signs of fluid retention to report. -Patient follows a low sodium diet. -Patients roommate assists her with her medication and treatment regime. Education Provided by [facility] to Support Self-Management, Independent Living and ADLs: -Patient lives with her roommate. -Patient denies the need for any additional DME. -Medication education was provided. -Encouraged to call the office with any questions, concerns, new or worsening symptoms. -Instructed to call 911 with any sudden shortness of breath or chest pain. Communication with Home Health Agencies and Other Services Utilized/Needed by the Patient: -Oxygen and supplies are being provided by [facility]. * Telephone Encounter - Michael Steiner DO - 07/28/2023 2:46 PM EDT Message noted. Please change the 08/10/23 visit to a TCM visit documented in this encounter Plan of Treatment Upcoming Encounters Date Type Department Care Team (Late st Contact Info) Description 10/27/2024 4:15 PM EDT Office Visit [facility] Internal [facility] - Family Medicine [address] [place] [address] Michael Steiner DO [address] [place] [address] 11/01/2024 4:30 PM EDT Appointment [facility] [place] - Total Rehab [address] [place] [phone] Cervicogenic headache 11/07/2024 2:30 PM EDT Office Visit [facility] Internal Medicine - Family Medicine [address] [place] [address] Michael Steiner DO [address] [place] [address] 11/28/2024 2:00 PM EDT Office Visit [facility] - Heart Failure Clinic [address] [place] [phone] Inez Cook, LINE PALLETIZER-REACTOR OPERATOR [address] [place] [phone] documented as of this encounter Visit Diagnoses Not on filedocumented in this encounter Additional Health Concerns Infection Onset Date Last Indicated Resolved Time COVID-19 Rule-Out 12/17/2023 12/17/2023 12/17/2023 1:50 PM EDT Assessment Noted Time PHQ-9 Depression Total Score: 0 07/01/19 2:19 PM EST documented as of this encounter Care Teams Health Researcher Relationship Specialty Start Date End Date Michael Steiner DO [address] [place] [address] PCP - General Internal Medicine 12/17/23 documented as of this encounter
--- OUTSIDE RECORDS SUMMARY | 2024-10-27 08:25 | XMS_ITS | Encounter Summary ---
Author Organization [facility] [employer] Address [id number] [address] [place] [address] Care Team Providers Care Swimming Pool Cleaner Name Role Phone Michael Steiner DO Primary Care Provider [phone] Encounter Details Date Type Department Care Team (Late st Contact Info) Description 07/31/2023 Telephone [facility] Pulmonary/Sleep Medicine [address] [address] Grace Meadows DO [address] [address] Social History Tobacco Use Types Packs/Day Years Used Date Smoking Tobacco: Former Cigarettes 1 40 0 09/1981 - 09/2021 Smokeless Tobacco: Former Chew Comments:5-6 cigerettes a da y Alcohol Use Standard Drinks/Week Comments Not Currently 0 (1 standard drink = 0.6 oz pur e alcohol) last use 15 years ago [facility] Utilities Answer Date Recorded In the past 12 months has [employer], gas, oil, or water company threatened [...] How often do you attend chur or voodoo services? More than 4 times per year 07/25/2023 Do you belong to any clubs o r organizations such as samaritan groups, unions, fraternal or athletic groups, or [...] Answer Date Recorded Total Score 0 07/01/2023 [facility] of Occupat ional Health - Occupational [...] Recorded Do you need help finding a [facility] career center and/or a training program? No [...] Description 10/27/2024 4:15 PM EDT Office Visit [facility] Internal Medicine - Family Medicine [address] [place] [address] Michael Steiner, [address] [place] [address] 11/01/2024 4:30 PM EDT Appointment [facility] Rick Young [place] - Total Rehab [address] [place] [phone] Cervicogenic headache 11/07/2024 2:30 PM EDT Office Visit [facility] Internal Medicine - Family Medicine [address] [place] [address] Michael Steiner, [address] [place] [address] 11/28/2024 2:00 PM EDT Office Visit [facility] Heart Failure Clinic [address] [place] [address] Inez Cook, DIRECTOR OF HOTEL OPERATIONS-INSPECTION AND TESTING SUPERVISOR [address] [place] [address] documented as of this encounter Visit Diagnoses Not on filedocumented in this encounter Additional Health Concerns Infection Onset Date Last Indicated Resolved Time COVID-19 Rule-Out 12/17/2023 12/17/2023 12/17/2023 1:50 PM EDT Assessment Noted Time PHQ-9 Depression Total Score: 0 07/01/19 2:19 PM EST documented as of this encounter Care Teams Swimming Pool Cleaner Relationship Specialty Start Date End Date Michael Steiner DO [address] [place] [address] PCP - General Internal Medicine 12/17/23 documented as of this encounter
--- OUTSIDE RECORDS SUMMARY | 2024-10-27 08:25 | XMS_ITS | Encounter Summary ---
Author Organization [employer] Address [id number] [address] [place] [address] Care Team Providers Care Bed And Breakfast Operator Name Role Phone Michael Steiner DO Primary Care Provider [phone] Encounter Details Date Type Department Care Team (Late st Contact Info) Description 03/07/2024 Orders Only [facility] Internal Medicine - Family Medicine [address] [place] [address] Michael Steiner DO [address] [place] [address] Chronic heart failure with preserved ejection fraction ([facility]) Social History Tobacco Use Types Packs/Day Years Used Date Smoking Tobacco: Former Cigarettes 1 40 0 09/1981 - 09/2021 Smokeless Tobacco: Never Comments:5-6 cigerettes a da y Alcohol Use Standard Drinks/Week Comments Not Currently 0 (1 standard drink = 0.6 oz pur e alcohol) last use 15 years ago [facility] Utilities Answer Date Recorded In the past 12 months has [employer], gas, oil, or water company threatened [...] often do you attend chur ch or mormon services? More than 4 times per year [...] Answer Date Recorded Total Score 0 01/04/2024 [facility] of Occupat ional Health - Occupational Stress [...] Internal Medicine - Family Medicine [address] [place] [address] Michael Steiner, DO [address] [place] [address] 11/01/2024 4:30 PM EDT [facility]ointment [facility] [address] [place] [phone] Cervicogenic headache 11/07/2024 2:30 PM EDT [facility] [address] [place] [address] Michael Steiner, DO [address] [place] [address] 11/28/2024 2:00 PM EDT Office Visit [facility] - Heart Failure Clinic [address] [place] [address] Inez Cook, CD MIXER-OLIVE GRADER [address] [place] [address] documented as of this encounter Goals Goal [...] documented as of this encounter Care Teams Bed And Breakfast Operator Relationship Specialty Start Date End Date Michael Steiner DO [address] [place] [address] PCP - General Internal Medicine 12/17/23 documented as of this encounter
--- OUTSIDE RECORDS SUMMARY | 2024-10-27 08:25 | XMS_ITS | Encounter Summary ---
Author Organization [facility] Address [id number] [address] [place] [address] Care Team Providers Care Factory Lay Out Engineer Name Role Phone Michael Steiner DO Primary Care Provider Encounter Details Date Type Department Care Team (Late st Contact Info) Description 11/20/2023 Orders Only [facility] Internal Medicine - Family Medicine [address] [place] [address] Michael Steiner DO [address] [place] [address] Social History Tobacco Use Types Packs/Day Years Used Date Smoking Tobacco: Former Cigarettes 1 40 0 09/1981 - 09/2021 Smokeless Tobacco: Never Comments:5-6 cigerettes a da y Alcohol Use Standard Drinks/Week Comments Not Currently 0 (1 standard drink = 0.6 oz pur e alcohol) last use 15 years ago [facility] Utilities Answer Date Recorded In the past 12 months has [employer], gas, oil, or water company threatened [...] often do you attend chur ch or mandaen services? More than 4 times per year 07/25/2023 Do you belong to any clubs o r organizations such as mormonism groups, unions, fraternal or athletic groups, or [...] Answer Date Recorded Total Score 0 11/02/2023 [facility] of Occupat ional Health - Occupational [...] Recorded Do you need help finding a [facility] and/or a training program? [...] Description 10/27/2024 4:15 PM EDT Office Visit [facility] Internal Medicine - Family Medicine [address] [place] [address] Michael Steiner DO [address] [place] [address] 11/01/2024 4:30 PM EDT Appointment [facility] Rick Young [place] - Total Rehab [address] [place] [phone] Cervicogenic headache 11/07/2024 2:30 PM EDT Office Visit [facility] Internal Medicine - Family Medicine [address] [place] [address] Michael Steiner, [address] [place] [address] 11/28/2024 2:00 PM EDT Office Visit [facility] - Heart Failure Clinic [address] [place] [address] Inez Cook, CUSTODIAL OPERATIONS MANAGER-ORTHODONTIC LABORATORY TECHNICIAN [address] [place] [address] documented as of this encounter Goals Goal [...] documented as of this encounter Care Teams Factory Lay Out Engineer Relationship Specialty Start Date End Date Michael Steiner DO [address] [place] [address] PCP - General Internal Medicine 12/17/23 documented as of this encounter
--- OUTSIDE RECORDS SUMMARY | 2024-10-27 08:25 | XMS_ITS | Encounter Summary ---
Author Organization [employer] s [employer] Address [id number] [address] [place] [address] Care Team Providers Care Shop Hand Name Role Phone Michael Steiner DO Primary Care Provider [phone] Encounter Details Date Type Department Care Team (Late st Contact Info) Description 11/06/[facility] [address] [place] [phone] PrestonMonica lo, PULMONOLOGIST/INTENSIVIST Social History Tobacco Use Types Packs/Day Years Used Date Smoking Tobacco: Former Cigarettes 1 40 0 09/1981 - 09/2021 Smokeless Tobacco: Never Comments:5-6 cigerettes a da y Alcohol Use Standard Drinks/Week Comments Not Currently 0 (1 standard drink = 0.6 oz pur e alcohol) last use 15 years ago [facility] Utilities Answer Date Recorded In the past 12 months has [employer], gas, oil, or water [employer] threatened to shut off services in your [...] week 07/25/2023 How often do you attend [facility] or christianity services? More than 4 times per year 07/25/2023 Do you belong to any clubs o r organizations such as caodaism groups, unions, fraternal or athletic groups, or [...] Answer Date Recorded Total Score 0 11/02/2023 [facility] of Occupat ional Health - [...] encounter Miscellaneous Notes * Telephone Encounter - Monica Johnston CMA - 11/06/2023 11:14 AM EDT Called left vm to cb on pts friends vm ----- Message ----- From: Michael Steiner DO Sent: 11/03/2023 To: Monet Recinos Subject: Unread Message Notification Your lab results are stable. Your potassium and magnesium levels are normal. Your blood count is stable, although still slightly anemic. Your kidney function is stable, although slightly decreased. Can you tell me again, what strength of the Torsemide tablets you have, and how many you are takingeach day? * Telephone Encounter - Monica Johnston CMA - 11/06/2023 11:14 AM EDT Pt called back read your note , she said she take the toremide 20mg 4 a day and 2 extra 3 days a week * Telephone Encounter - Michael Steiner DO - 11/06/2023 11:14 AM EDT Message noted. Med list suggested documented in this encounter Plan of Treatment Upcoming Encounters Date Type Department Care Team (Late st Contact Info) Description 10/27/2024 4:15 PM EDT Office Visit [facility] Internal Medicine - Family Medicine [address] [place] [address] Michael Steiner DO [address] [place] [address] 11/01/2024 4:30 PM EDT Appointment [facility] - Total Rehab [address] [place] [phone] Cervicogenic headache 11/07/2024 2:30 PM EDT Office Visit [facility] Internal Medicine - Family Medicine [address] [place] [address] Michael Steiner DO [address] [place] [address] 11/28/2024 2:00 PM EDT Office Visit [facility] - Heart Failure Clinic [address] [place] [address] Inez Cook, SHEET WRITER-API ARCHITECT [address] [place] [address] documented as of this encounter [...] documented as of this encounter Care Teams Shop Hand Relationship Specialty Start Date End Date Michael Steiner DO [address] [place] [id number] PCP - General Internal Medicine 12/17/23 documented as of this encounter
--- OUTSIDE RECORDS SUMMARY | 2024-10-27 08:26 | XMS_ITS | Clinical Summary ---
Author Organization [facility] Healthcare Address [address] [place] [address] Care Team Providers Care Fire Patroller Name Role Phone Michael Steiner MD Primary Care Provider [phone] Allergies Active Allergy Reactions Criticality Noted Date Comments Morphine Hallucinations Medium 04/29/2023 Penicillins Anaphylaxis High 05/08/2013 Swelling of Lip/Tongue/Throat Medications cyclobenzaprine (Flexeril) 10 MG tablet Take 5 mg by mouth as needed in the morning and 5 mg as needed at noon and 5 mg as needed in the evening for muscle spasms. Active acetaminophen (Tylenol) 325 MG tablet Take 325 mg by mouth every 4 (four) hours if needed for mild pain Active albuterol 0.63 MG/3ML nebulizer solution Take 0.63 mg by nebulization every 6 (six) hours if needed for wheezing Active aspirin 81 MG EC tablet Take 81 mg by mouth Daily Active atorvastatin (Lipitor) 80 MG tablet Take 80 mg by mouth Daily Active cholecalciferol (Vitamin D-3) 125 MCG (5000 UT) capsule Take 5,000 Units by mouth Daily Active diclofenac sodium (Voltaren) 1 % gel Apply 2 g topically in the morning and 2 g in the evening and 2 g before bedtime. Active doxepin (SINEquan) 75 MG capsule Take 75 mg by mouth at bedtime Active empagliflozin (Jardiance) 10 MG Take by mouth Active pantoprazole (ProtoNix) 40 MG EC tablet Take 40 mg by mouth in the morning. Take before meals. Do not crush, chew, or split. Active potassium chloride CR (Klor-Con M20) 20 MEQ ER tablet Take 20 mEq by mouth Daily Do not crush or chew. Active propranolol XL (Innopran XL) 80 MG 24 hr capsule Take 80 mg by mouth at bedtime Do not crush, chew, or split. Active spironolactone (Aldactone) 25 MG tablet Take 25 mg by mouth Daily Active SUMAtriptan (Imitrex) 25 MG tablet Take 25 mg by mouth 1 (one) time if needed for migraine May repeat dose once in 2 hours if no relief. Do not exceed 2 doses in 24 hours. Active torsemide (Demadex) 20 MG tablet Take 20 mg by mouth Daily Active venlafaxine XR (Effexor XR) 75 MG 24 hr capsule Take 75 mg by mouth Daily Do not crush or chew. Active venlafaxine XR (Effexor XR) 150 MG 24 hr capsule Take 150 mg by mouth Daily Do not crush or chew. Active calcitonin, salmon, (Miacalcin) 200 UNIT/ACT nasal spray Administer 1 spray into affected nostril(s) in the morning. 4 Active cyanocobalamin (Vitamin B-12) 1000 MCG tablet Acti ve pregabalin (Lyrica) 100 MG capsule Take 100 mg by mouth in the morning and 100 mg in the evening. 4 Active ARIPiprazole (Abilify) 15 MG tablet Take 15 mg by mouth at bedtime 4 Active celecoxib (CeleBREX) 200 MG capsule 4 Active hydrOXYzine HCl (Atarax) 25 MG tablet Take 25 mg by mouth Daily 4 Active clonazePAM (KlonoPIN) 0.5 MG tablet Take 0.5 mg by mouth in the morning and 0.5 mg before bedtime. 4 Active lamoTRIgine (LaMICtal) 150 MG tablet Take 1 tablet by mouth Daily 4 Active ezetimibe (Zetia) 10 MG tablet Take 10 mg by mouth in the morning. 5 Active ferrous sulfate 325 (65 Fe) MG tablet TAKE 1 TABLET BY MOUTH TWICE A DAY FOR 30 DAYS for 30 Active topiramate (Topamax) 100 MG tablet TAKE 1 TABLET (100 MG TOTAL) BY MOUTH IN THE MORNING AND AT BEDTIME FOR 90 DAYS. 4 Active methocarbamol (Robaxin) 750 MG tablet TAKE 1 TABLET BY MOUTH EVERY 12 HOURS FOR 30 DAYS for 30 Active albuterol HFA 90 mcg/act inhalerIndicati ons:Chronic obstructive pulmonary disease, unspecified COPD type (HCC) Inhale 2 puffs every 4 (four) hours if needed for wheezing 18 g 5 5 Active Budeson-Glycopy rrol-Formoterol (Breztri Aerosphere) 160-9-4.8 MCG/ACT aerosolIndicati ons:Chronic obstructive pulmonary disease, unspecified COPD type (HCC) Inhale 2 puffs in the morning and 2 puffs before bedtime. 10.7 g 5 5 Active Active Problems Problem Noted Date Diagnosed Date Acute pulmonary embolism without acute cor pulmo nale 08/28/2023 Closed wedge compression fra cture of T6 vertebra with routine healing 08/28/2023 Chronic respiratory failure with hypoxia and hyp ercapnia 07/25/2023 Cannabis use disorder, mild, abuse 05/28/2023 Major depressive disorder 05/28/2023 Morbid (severe) obesity due to excess calories 0 04/30/2023 Muscle weakness (generalized) 04/30/2023 Chronic obstructive pulmonary disease, unspecifi ed 04/29/2023 Hypokalemia 04/29/2023 Iron deficiency anemia, unspecified 04/29/2023 Migraine, unspecified, not i ntractable, without status migrainosus 04/29/2023 Panic disorder 04/29/2023 Vitamin D deficiency, unspecified 04/29/2023 Agoraphobia 10/21/2022 Bipolar 2 disorder, major depressive episode GERD (gastroesophageal reflux disease) Essential hypertension 09/26/2022 Hx of hyperlipidemia 09/26/2022 BONY treated with BiPAP 07/31/2022 Liver disease 04/15/2022 Chronic heart failure with preserved ejection fr action 02/27/2022 Hyperglycemia 08/14/2020 Low back pain 08/14/2020 NSTEMI (non-ST elevated myocardial infarction) 0 01/09/2020 Anxiety 08/28/2015 Borderline personality disorder 08/28/2015 PTSD (post-traumatic stress disorder) 08/28/2015 Chronic headache 02/05/2015 CAD S/P percutaneous coronary angioplasty 2013 Overview (01/22/2024): Dr. Vickers at [place] in [place] did PCI with bare metal stent placement 03/2010 Resolved Problems Problem Noted Date Diagnosed Date Resolved Date Ventricular tachycardia 09/20/202408/26 Overview (09/20/2024): Documented on 08/23/2020 Arthritis of left sacroiliac joint 07/07/2024 09/20/2024 Stage 3a chronic kidney disease 07/07/2024 09/20/2024 Weakness 05/28/2023 03/15/2024 Obesity with body mass index 30 or greater 05/14/2023 09/20/2024 Psoriasis, unspecified 05/02/202303/15 Unspecified dementia, mild, without behavioral disturbance, psychotic disturbance, mood disturbance, and anxiety 04/30/2023 03/15/2024 COVID-19 04/29/2023 03/15/2024 Dependence on other enabling machines and devices 04/29/2023 03/15/2024 Personal history of nicotine dependence 04/29/2023 03/15/2024 Pneumonia, unspecified organism 04/29/2023 03/15/2024 Polyneuropathy, unspecified 04/29/2023 03/15/2024 Presence of aortocoronary bypass graft 04/29/2023 03/15/2024 Solitary pulmonary nodule 04/29/2023 Hyperlipidemia 04/29/2023 09/20/2024 Nicotine dependence 04/29/2023 09/21/19 25 Difficulty in walking, not e lsewhere classified 04/28/2023 03/15/2024 Former smoker 09/26/2022 03/15/2024 Cigarette nicotine dependence in remission 10/16/2020 03/15/2024 Encounters Date Type Department Care Team Description 09/21/2024 3:00 PM EDT Office Visit [facility] [address] [place] [address] Sydnie Guerrero DO Chronic obstructive pulmonary disease, unspecified COPD type (HCC) (Primary Dx); Chronic respiratory failure with hypoxia and hypercapnia (HCC); BONY (obstructive sleep apnea) 09/21/2024 Bamboo flowsheet [facility] [address] [place] [address] Sydnie Guerrero DO from Last 3 Months Immunizations Immunization Administration Dates Next Due PPD Test 05/12/2023,05/12/2023,04/30/2023 ,04/30/2023 Family History Medical History Relation Name Comments Heart disease Mother Oly Hyperlipidemia Mother Oly Relation Name Status Comments Father Alive Mother Oly Social History Tobacco Use Types Packs/Day Years Used Date Smoking Tobacco: Former Cigarettes Q uit: 2021 Smokeless Tobacco: Former Tobacco Cessation:Counseling Given: Not Answered Alcohol Use Standard Drinks/Week Comments Not Currently 0 (1 standard drink = 0.6 oz pur e alcohol) Comments Unknown Sex and Gender Information Value Date Recorded Sex Assigned at Not on file Legal Sex Female 11:01 PM EDT Gender Identity Not on file Sexual Orientation Not on file Last Filed Vital Signs Vital Sign Reading Time Taken Comments Blood Pressure 141/74 09/21/2024 3:18 PM EDT Pulse 93 09/21/2024 3:18 PM EDT Temperature - - Respiratory Rate - - Oxygen Saturation 92% 09/21/2024 3:18 PM EDT Inhaled Oxygen Concentration - - Weight 113 kg (248 lb 9.6 oz) 09/21/2024 3:18 PM EDT Height 175.3 cm (5' 9 ) 09/21/2024 3:18 PM EDT Body Mass Index 36.71 09/21/2024 3:18 PM EDT Plan of Treatment Upcoming Encounters Date Type Department Care Team (Late st Contact Info) Description 03/08/2025 3:15 PM EST Office Visit [facility] [address] [place] [address] Sydnie Guerrero DO [address] [place] [address] Insurance [place] Care Teams Fire Patroller Relationship Specialty Start Date End Date Michael Steiner MD PCP - General Internal Medicine 08/11/23
--- OUTSIDE RECORDS SUMMARY | 2024-10-27 08:26 | XMS_ITS ---
Author Organization [facility] Care Team Providers Care Tribal Judge Name Role Phone Ashvin Vazquez Jr Unavailable Unavailable Sobia Villarreal Unavailable Unavailabl e Allergies and adverse reactions Code CodeSystem Substance Reaction Severity StartDate Concern Status 8001 RXNORM Penicillin Unknown 05/01/[address] Morphine Unknown 04/29/2023 active Care Team Name Role Address Phone Organization Dates Ashvin Vazquez Jr PCP [facility] [place], [address], [place] (Office): : : - (Pager): [facility] 04/29/2023 - 05/15/2023 Sobia Villarreal [address] [place] [address], [address], [facility] (Cell): [facility] 04/29/2023 - 05/15/2023 Immunizations Immunization Status Vaccine Details Vaccine Code CodeSystem Date Notes Influenza cancelled Influenza, high-dose, split virus, quadrivalent, injectable, preservative free 197 CVX created date: 05/05/2023 consent date: 05/05/2023 TB 2 Step Mantoux Skin Test completed tuberculin skin test; unspecified formulation lotNumber: [id number] expiry: 07/25/2024 Mfg: par Given 0.1 ml Left Forearm intradermally Step 2 of Multi-step with next step required 98 CVX created date: 05/12/2023 consent date: 05/12/2023 administer ed date: 05/12/2023 no reaction to Tb TB 2 Step Mantoux Skin Test completed tuberculin skin test; unspecified formulation Mfg: pharm Given 0.1 ml Right Forearm intradermally Step 1 of Multi-step with next step required 98 CVX created date: 05/01/2023 consent date: 05/01/2023 administer ed date: 05/01/2023 Educated by Radha LATHAM on 05/02/2023 SARS-COV-2 (COVID-19) cancelled SARS-COV-2 (COVID-19) vaccine, mRNA, spike protein, LNP, preservative free, 50 mcg/0.5 mL dose 312 CVX created date: 05/05/2023 consent date: 05/05/2023 SARS-COV-2 (COVID-19) cancelled SARS-COV-2 (COVID-19) vaccine, mRNA, spike protein, LNP, preservative free, 25 mcg/0.25 mL dose 311 CVX created date: 05/05/2023 consent date: 05/05/2023 PPSV 20 cancelled Pneumococcal conjugate vaccine 20-valent (PCV20), polysaccharide [id number] conjugate, adjuvant, preservative free 216 CVX created date: 05/05/2023 consent date: 05/05/2023 RSV cancelled respiratory syncytial virus monoclonal antibody (palivizumab), intramuscular 93 CVX created date: 05/05/2023 consent date: 05/13/2023 Mental Status Section Date Assessment Total Score Description 05/15/2023 BIMS 15 cognitively int act CAM 0 No delirium ind icated PHQ-9 00 05/05/2023 BIMS 15 cognitively int act CAM 0 No delirium ind icated PHQ-9 00 Problems Problem # Description Date of onset Resolved Date Code CodeSystem Concern Status 1 BODY MASS INDEX [BMI] 37.0-37.9, ADULT [address] active 2 PSORIASIS, UNSPECIFIED [address] active 3 CHRONIC DIASTOLIC (CONGESTIVE) HEART FAILURE [address] active 4 MORBID (SEVERE) OBESITY DUE TO EXCESS CALORIES [address] active 5 MUSCLE WEAKNESS (GENERALIZED) [address] active 6 NEED FOR ASSISTANCE WITH PERSONAL CARE [address] active 7 OBSTRUCTIVE SLEEP APNEA (ADULT) (PEDIATRIC) [address] active 8 UNSPECIFIED DEMENTIA, MILD, WITHOUT BEHAVIORAL DISTURBANCE, PSYCHOTIC DISTURBANCE, MOOD DISTURBANCE, AND ANXIETY [address] active 9 AGORAPHOBIA, UNSPECIFIED [address] active 10 ANXIETY DISORDER, UNSPECIFIED [address] active 11 ATHEROSCLEROTIC HEART DISEASE OF [place] CORONARY ARTERY WITHOUT ANGINA PECTORIS [address] active 12 ATHEROSCLEROTIC HEART DISEASE OF [place] CORONARY ARTERY WITHOUT ANGINA PECTORIS 024 04/29/[address] completed 13 BIPOLAR DISORDER, UNSPECIFIED [address] active 14 BODY MASS INDEX [BMI] 38.0-38.9, ADULT 024 05/13/[address] completed 15 CHRONIC OBSTRUCTIVE PULMONARY DISEASE, UNSPECIFIED [address] active 16 COVID-[address] active 17 DEPENDENCE ON OTHER ENABLING MACHINES AND DEVICES [address] active 18 DEPRESSION, UNSPECIFIED [address] active 19 ESSENTIAL (PRIMARY) HYPERTENSION [address] active 20 GASTRO-ESOPHAGEAL REFLUX DISEASE WITHOUT ESOPHAGITIS [address] active 21 HYPERLIPIDEMIA, UNSPECIFIED [address] active [address]EMIA [address] active 23 IRON DEFICIENCY ANEMIA, UNSPECIFIED [address] active 24 MIGRAINE, UNSPECIFIED, NOT INTRACTABLE, WITHOUT STATUS MIGRAINOSUS [address] active 25 OLD MYOCARDIAL INFARCTION [address] active 26 PANIC DISORDER [EPISODIC PAROXYSMAL ANXIETY] [address] active 27 PERSONAL HISTORY OF NICOTINE DEPENDENCE [address] active 28 PNEUMONIA, UNSPECIFIED ORGANISM [address] active 29 POLYNEUROPATHY, UNSPECIFIED [address] active 30 POST-TRAUMATIC STRESS DISORDER, UNSPECIFIED [address] active 31 PRESENCE OF AORTOCORONARY BYPASS GRAFT [address] active 32 SOLITARY PULMONARY NODULE [address] active 33 UNSPECIFIED DEMENTIA, UNSPECIFIED SEVERITY, WITHOUT BEHAVIORAL DISTURBANCE, PSYCHOTIC DISTURBANCE, MOOD DISTURBANCE, AND ANXIETY 024 04/30/[address] completed 34 UNSPECIFIED OSTEOARTHRITIS, UNSPECIFIED SITE [address] active 35 VITAMIN D DEFICIENCY, UNSPECIFIED [address] active 36 DIFFICULTY IN WALKING, NOT ELSEWHERE CLASSIFIED [address] active Reason for Referral No Reasons for Referral Entered Social History Social History Observation Description Start Date End Date Code Code System Current Smoking Status Tobacco smoking consumption unknown 596875088 SNOMED CT Sex Assigned At Female 1960 82653-2 [facility] Gender Identity Vital Signs Code Code System Vitals Name Values and Units Timing Information 9279-1 [facility] Respiratory Rate Value=18.0 Units=/m in 05/15/2023 8462-4 [facility] Blood Pressure-Diastolic Value=44 Un its=mmHg 05/15/2023 8480-6 [facility] Blood Pressure-Systolic Value=94 Uni ts=mmHg 05/15/2023 8310-5 [facility] Body Temperature Value=98.1 Units= F 05/15/2023 8867-4 [facility] Heart rate Value=74.0 Units=/min 63602-0 [facility] O2 % BldC Oximetry Value=91.0 Units= % 05/15/2023 74089-8 [facility] Pain Level Value=0.0 05/15/2023 31130-9 [facility] Weight Wawjj=998.8 Units=Lbs 8302-2 [facility] Height Value=69.0 Units=Inches 04/29/2023
--- OUTSIDE RECORDS SUMMARY | 2024-10-27 08:26 | XMS_ITS | Encounter Summary ---
Author Organization [facility] Address [id number] [place] [address] Care Team Providers Care Admissions Officer Name Role Phone Michael Steiner DO Primary Care Provider [phone] Reason for Visit * Reason Comments Med Refill Encounter Details Date Type Department Care Team (Late st Contact Info) Description 09/28/2020 Refill [facility] - Kilo Hodge [place] [address] [place] [address] Tiffany Luna APRN-CONTACT CENTER REP [address] [facility] [place], [place] [id number] Social History Tobacco Use Types Packs/Day Years Used Date Smoking Tobacco: Every Day Cigarettes Smokeless Tobacco: Current Chew Comments:5-6 cigerettes a da y Alcohol [...] week 01/09/2020 How often do you attend samaritan or mosque serv ices? Never 01/09/2020 Do you belong [...] Recorded Do you need help finding a Asthmatr[employer] career center and/or a training program? No [...] have Coronavirus / COVID-19? No / Unsure 09/27/2020 11:37 AM EDT documented as of this encounter Plan of Treatment Upcoming Encounters Date Type Department Care Team (Late st Contact Info) Description 10/27/2024 4:15 PM EDT Office Visit [facility] - Family Medicine [address] [facility] [place] [phone] Michael Steiner DO [address] [place] [address] 11/01/2024 4:30 PM EDT Appointment [facility] [place] [facility] [address] [place] [address] Cervicogenic headache 11/07/2024 2:30 PM EDT Office Visit [facility] Internal Medicine - Family Medicine [address] [place] [place] [address] Michael Steiner DO [address] [place] [address] 11/28/2024 2:00 PM EDT Office Visit [facility] - Heart Failure Clinic [address] [place] [place] [address] Inez Cook, BOBBIN DISKER-CONTACT CENTER REP [address] [place] [address] documented as of this encounter Visit Diagnoses Not on filedocumented in this encounter Additional Health Concerns Infection Onset Date Last Indicated Resolved Time Enteric Rule-Out 01/14/2021 01/14/2021 01/14/2021 4:51 PM EDT COVID-19 Rule-Out 04/13/2023 04/13/2023 04/13/2023 2:19 PM EST COVID-19 Positive 04/13/2023 04/13/2023 04/29/2023 12:46 PM EST Enteric Rule-Out 04/28/2023 04/28/2023 04/29/2023 12:46 PM EST COVID-19 Rule-Out 07/24/2023 07/24/2023 07/24/2023 10:44 PM EDT COVID-19 Rule-Out 07/25/2023 07/25/2023 07/25/2023 7:25 PM EDT COVID-19 Rule-Out 12/17/2023 12/17/2023 12/17/2023 1:50 PM EDT Assessment Noted Time PHQ-9 Depression Total Score: 0 08/07/19 6:36 PM EDT documented as of this encounter Care Teams Admissions Officer Relationship Specialty Start Date End Date Michael Steiner DO [address] [place] [address] PCP - General Internal Medicine 12/17/23 documented as of this encounter
--- OUTSIDE RECORDS SUMMARY | 2024-10-27 08:26 | XMS_ITS | Encounter Summary ---
Author Organization [facility] Address [id number] [address] [place] [address] Care Team Providers Care Bench Worker Apprentice Name Role Phone Michael Steiner DO Primary Care Provider [phone] Reason for Visit * Reason Comments Med Refill Encounter Details Date Type Department Care Team (Late st Contact Info) Description 11/06/2020 Refill [facility] - Kilo [place] [address] [place] [address] Tiffany Luna APRN-FEATHER DRYING MACHINE OPERATOR [address] [facility] [place], [place] [id number] Social History Tobacco Use Types Packs/Day Years Used Date Smoking Tobacco: Every Day Cigarettes Smokeless Tobacco: Former Chew Comments:5-6 cigerettes a [...] week 01/09/2020 How often do you attend shinto or rastafarian serv ices? Never 01/09/2020 Do you belong to any clubs o r organizations such as shinto groups, unions, fraternal or athletic groups, or [...] Recorded Do you need help finding a [employer] career center and/or a training program? No [...] have Coronavirus / COVID-19? No / Unsure 10/16/2020 2:23 PM EDT documented as of this encounter Plan of Treatment Upcoming Encounters Date Type Department Care Team (Late st Contact Info) Description 10/27/2024 4:15 PM EDT Office Visit [facility] - Family Medicine [address] [facility] [place] [address] Michael Steiner DO [address] [place] [address] 11/01/2024 4:30 PM EDT Appointment Dirk Young [place] [facility] [address] [place] [address] Cervicogenic headache 11/07/2024 2:30 PM EDT Office Visit [facility]icians Internal Medicine - Family Medicine [address] [facility] [place] [address] Michael Steiner DO [address] [place] [address] 11/28/2024 2:00 PM EDT Office Visit [facility] - Heart Failure Clinic [address] [place] [address] Inez Cook, DISPATCHER TUGBOAT-FEATHER DRYING MACHINE OPERATOR [address] [place] [address] documented as of this encounter Visit Diagnoses [...] documented as of this encounter Care Teams Bench Worker Apprentice Relationship Specialty Start Date End Date Michael Steiner DO [address] [place] [address] PCP - General Internal Medicine 12/17/23 documented as of this encounter
--- OUTSIDE RECORDS SUMMARY | 2024-10-27 08:26 | XMS_ITS | Encounter Summary ---
Author Organization [facility] [email or web address] [facility] Address [id number] [address] [place] [address] Care Team Providers Care Oil Winterizer Name Role Phone Michael Steiner DO Primary Care Provider [phone] Encounter Details Date Type Department Care Team (Late st Contact Info) Description 02/13/2023 Telephone [facility] - [facility] [address] [place] [address] Brittnee Sharpe, RN Social History Tobacco Use Types Packs/Day [...] week 01/09/2020 How often do you attend scientologist or orthodox serv ices? Never 01/09/2020 Do you belong to any clubs o r organizations such as scientologist groups, unions, fraternal or athletic groups, or [...] Recorded Do you need help finding a [employer] career center and/or a training program? No [...] encounter Miscellaneous Notes * Telephone Encounter - Brittnee Sharpe RN - 02/13/2023 1:42 PM EDT pt states snap vac fell off RN explained to pt gently pack Calcium Alginate into the wound bed, cut the calcium alginate into a ribbon and pack into wound bed, then cover with a dry dressing of choice, and do this every other day. pt voiced understanding. Provider aware documented in this encounter Plan of Treatment Upcoming Encounters Date Type Department Care Team (Late st Contact Info) Description 10/27/2024 4:15 PM EDT Office Visit [facility] - Family [place] [address] Michael Steiner, DO [address] [place] [address] 11/01/2024 4:30 PM EDT Appointment [facility] [address] [place] [phone] Cervicogenic headache 11/07/2024 2:30 PM EDT Office Visit [facility] Internal Medicine - Family Medicine [address] [place] [address] Michael Steiner, DO [address] [place] [address] 11/28/2024 2:00 PM EDT Office Visit [facility] - Heart Failure Clinic [address] [place] [address] Inez Cook, WAFER FAB TECHNICIAN-PIANO MACHINE OPERATOR [address] [place] [address] documented as of this encounter Visit Diagnoses [...] documented as of this encounter Care Teams Oil Winterizer Relationship Specialty Start Date End Date Michael Steiner DO [address] [place] [address] PCP - General Internal Medicine 12/17/23 documented as of this encounter
--- OUTSIDE RECORDS SUMMARY | 2024-10-27 08:26 | XMS_ITS | Encounter Summary ---
Author Organization [facility] Address [address] [place] [address] Care Team Providers Care Test Desk Supervisor Name Role Phone Michael Steiner MD Primary Care Provider [phone] Encounter Details Date Type Department Care Team (Late st Contact Info) Description 03/18/2024 Abstract [facility] [address] [place] [phone] Patricia Mcclure MA Social History Tobacco Use Types Packs/Day Years Used Date Smoking Tobacco: Every Day Cigarettes Last attempted to quit: 2021 Smokeless Tobacco: Former Alcohol Use Standard Drinks/Week Comments Not Currently 0 (1 standard drink = 0.6 oz pur e alcohol) Comments Unknown Sex and Gender Information Value Date Recorded Sex Assigned at Not on file Legal Sex Female 11:01 PM EDT Gender Identity Not on file Sexual Orientation Not on file documented as of this encounter Plan of Treatment Upcoming Encounters Date Type Department Care Team (Late st Contact Info) Description 03/08/2025 3:15 PM EST Office Visit [facility] [address] [place] [phone] Sydnie Guerrero DO [address] [place] [address] documented as of this encounter Visit Diagnoses Not on filedocumented in this encounter Care Teams Test Desk Supervisor Relationship Specialty Start Date End Date Michael Steiner MD PCP - General Internal Medicine 08/11/23 documented as of this encounter
--- OUTSIDE RECORDS SUMMARY | 2024-10-27 08:26 | XMS_ITS | Encounter Summary ---
Author Organization [facility] [facility] Address [id number] [place] [address] Care Team Providers Care Artillery Meteorological Man Name Role Phone Joansunshine Michael Janae CABRERA Primary Care Provider [phone] Reason for Visit * Reason Onset Date Comments Lorenzo 10/19/2020 Encounter Details Date Type Department Care Team (Late st Contact Info) Description 10/19/2020 Telephone [facility] [address] [place] [address] Sharon Beaver, VICTOR M Ventura Social History Tobacco Use Types Packs/Day Years [...] week 01/09/2020 How often do you attend nondenominational or worship serv ices? Never 01/09/2020 Do you belong to any clubs o r organizations such as nondenominational groups, unions, fraternal or athletic groups, or [...] Recorded Do you need help finding a [employer] career center and/or a training program? No [...] encounter Miscellaneous Notes * Telephone Encounter - Sharon Beaver RN - 10/19/2020 3:17 PM EDT Prior auth done for Ch[employer]ix-note [facility] sent note not available and no idea if they will get any in -called [facility] they have a starter pack available. Called pt to see if she would be willing to getat [facility] due to questional availability at [facility]-states has decided not to use [employer]. documented in this encounter Plan of Treatment Upcoming Encounters Date Type Department Care Team (Late st Contact Info) Description 10/27/2024 4:15 PM EDT [facility] - [facility] Medicine [address] [place] [phone] Michael Steiner, DO [address] [place] [address] 11/01/2024 4:30 PM EDT Appointment [facility] - Total Rehab [address] [place] [phone] Cervicogenic headache 11/07/2024 2:30 PM EDT [facility] - [facility] Medicine [address] [place] [phone] Michael Steiner, DO [address] [place] [address] 11/28/2024 2:00 PM EDT Office Visit [facility] Failure [facility] [address] [place] [address] Inez Cook, HOB GRINDER-NURSES SUPERINTENDENT [address] [place] [address] documented as of this encounter Visit Diagnoses [...] documented as of this encounter Care Teams Artillery Meteorological Man Relationship Specialty Start Date End Date Michael Steiner DO [address] [place] [address] PCP - General Internal Medicine 12/17/23 documented as of this encounter
--- OUTSIDE RECORDS SUMMARY | 2024-10-27 08:26 | XMS_ITS | Clinical Summary ---
Author Organization [employer] tem Address [id number] [address] [place] [address] Care Team Providers Care Break And Load Operator Name Role Phone JoanMichael gonsalez Janae CABRERA Primary Care Provider [phone] Allergies Active Allergy Reactions Criticality Noted Date Comments Morphine Other (See Comments) 03/31/2017 I hallucinate This is not a true allergy Penicillins Anaphylaxis High 05/08/2013 Other Reaction(s): Swelling of Lip/Tongue/Throat Medications cholecalciferol, vitamin D3, 5,000 units tablet Take 2 tablets (10,000 Units total) by mouth in the morning. Active albuterol (ACCUNEB) 0.63 mg/3 mL nebulizer solution Inhale 3 mL (0.63 mg total) by nebulization every 6 (six) hours as needed for wheezing. Active albuterol (PROVENTIL HFA;VENTOLIN HFA) 90 mcg/actuation inhaler Active ARIPiprazole (ABILIFY) 15 mg tablet 024 Active doxepin (SINEquan) 75 mg capsule Active budesonide-glycop yr-formoterol (BREZTRI AEROSPHERE) 160-9-4.8 mcg/actuation HFA aerosol inhalerIndication s:Chronic obstructive pulmonary disease, unspecified COPD type (CMS-HCC) Inhale 2 puffs in the morning and 2 puffs before bedtime. 10.7 g 10 024 Active acetaminophen (TYLENOL) 325 mg tablet Take 2 tablets (650 mg total) by mouth every 4 (four) hours as needed for pain or headaches. 30 tablet 024 Active clonazePAM (KlonoPIN) 0.5 mg tablet 024 Active lamoTRIgine (LaMICtal) 150 mg tablet 024 Active spironolactone (ALDACTONE) 25 mg tabletIndications :Shortness of breath,Chronic heart failure with preserved ejection fraction (CMS-HCC) Take 1 tablet (25 mg total) by mouth in the morning. 90 tablet 024 Active atorvastatin (LIPITOR) 80 mg tabletIndications :Atherosclerosis of [place] coronary artery of [place] heart without angina pectoris,Hx of hyperlipidemia Take 1 tablet (80 mg total) by mouth in the morning. 90 tablet 3 024 Active ezetimibe (ZETIA) 10 mg tabletIndications :Atherosclerotic heart disease of [place] coronary artery with other forms of angina pectoris Take 1 tablet (10 mg total) by mouth in the morning. 90 tablet 1 025 Active pantoprazole (PROTONIX) 40 mg EC tabletIndications :Gastro-esophagea l reflux disease without esophagitis TAKE 1 TABLET BY MOUTH EVERY DAY IN THE MORNING BEFORE BREAKFAST 90 tablet 1 025 Active empagliflozin (JARDIANCE) 10 mg tablet tabletIndications :Chronic heart failure with preserved ejection fraction (CMS-HCC),Atheros clerosis of [place] coronary artery of [place] heart without angina pectoris Take 1 tablet (10 mg total) by mouth in the morning. TAKE 1 TABLET (10 MG TOTAL) BY MOUTH IN THE MORNING. 90 tablet 1 025 Active cyanocobalamin 1000 MCG tablet Acti ve celecoxib (CeleBREX) 200 mg capsule 024 Active hydrOXYzine (ATARAX) 25 mg tablet Take 1 tablet (25 mg total) by mouth. 025 Active methocarbamoL (ROBAXIN) 750 mg tablet TAKE 1 TABLET BY MOUTH EVERY 12 HOURS FOR 30 DAYS for 30 Active TRINTELLIX 10 mg tablet Take 1 tablet (10 mg total) by mouth. 025 Active propranoloL (INDERAL) 40 mg tabletIndications :Chronic heart failure with preserved ejection fraction (CMS-HCC) Take 1 tablet (40 mg total) by mouth in the morning and 1 tablet (40 mg total) before bedtime. 60 tablet 1 025 Active pregabalin (LYRICA) 100 mg capsuleIndication s:Peripheral polyneuropathy TAKE 1 CAPSULE BY MOUTH IN THE MORNING AND 1 CAPSULE BEFORE BEDTIME 60 capsule 025 Active furosemide (LASIX) 40 mg tabletIndications :Venous insufficiency of both lower extremities Take 1 tablet (40 mg total) by mouth daily for 5 days. 5 tablet 025 2024 Active venlafaxine XR (EFFEXOR-XR) 150 mg 24 hr capsule Take 225 mg by mouth in the morning. 022 2024 Discontinued(D iscontinued by another clinician) propranolol LA (INDERAL LA) 80 mg 24 hr capsule Take 1 capsule (80 mg total) by mouth in the morning. 2024 Discontinued(S tutu effects) venlafaxine XR (EFFEXOR XR) 75 mg 24 hr capsule 023 2024 Discontinued(D iscontinued by another clinician) SUMAtriptan (IMITREX) 50 mg tablet 2024 Discontinued(I neffective) diclofenac sodium (VOLTAREN) 1 % gelIndications:Fi bromyalgia syndrome APPLY 2 G TOPICALLY IN THE MORNING AT AT NOON IN THE EVENING AND BEFORE BEDTIME 100 g 2 024 2024 Discontinued(P atient Stopped On Own) pregabalin (LYRICA) 100 mg capsuleIndication s:Peripheral polyneuropathy TAKE 1 CAPSULE (100 MG TOTAL) BY MOUTH IN THE MORNING AND 1 CAPSULE BEFORE BEDTIME 60 capsule 025 2024 Discontinued topiramate (TOPAMAX) 100 mg tablet TAKE 1 TABLET (100 MG TOTAL) BY MOUTH IN THE MORNING AND AT BEDTIME FOR 90 DAYS. 024 2024 Discontinued(I neffective) Active Problems Problem Noted Date Diagnosed Date Arthritis of left sacroiliac joint 07/07/2024 Chronic obstructive pulmonar y disease, unspecified COPD type 07/07/2024 Stage 3a chronic kidney disease 07/07/2024 Closed wedge compression fra cture of T6 vertebra with routine healing 08/28/2023 Chronic respiratory failure with hypoxia and hyp ercapnia 07/25/2023 BMI 40.0-44.9, adult 06/01/2023 Cannabis use disorder, mild, abuse 05/28/2023 Major depressive disorder 05/28/2023 Panic disorder 05/28/2023 Weakness 05/28/2023 Agoraphobia 10/21/2022 Anxiety 10/21/2022 Chipped tooth 10/21/2022 GERD (gastroesophageal reflux disease) Osteoarthritis 10/21/2022 Overview (10/21/2022): Apr 2009, swith stent placement PTSD (post-traumatic stress disorder) 10/21/2022 Bipolar 2 disorder, major depressive episode Essential hypertension 09/26/2022 Hx of hyperlipidemia 09/26/2022 Former smoker 09/26/2022 BONY treated with BiPAP 07/31/2022 Depression 04/15/2022 Liver disease 04/15/2022 Visual impairment 04/15/2022 Overview (04/15/2022): glasses Chronic heart failure with preserved ejection fr action 02/27/2022 Cigarette nicotine dependence in remission 10/16 Hyperglycemia 08/14/2020 Low back pain 08/14/2020 Atherosclerotic heart diseas e of [place] coronary artery with other forms of angina pectoris 07/30/2020 Obesity (BMI 30-39.9) 01/30/2020 NSTEMI (non-ST elevated myocardial infarction) 0 01/09/2020 Resolved Problems Problem Noted Date Diagnosed Date Resolved Date Acute pulmonary embolism wit hout acute cor pulmonale, unspecified pulmonary embolism type 08/28/2023 07/07/2024 COVID-19 04/15/2023 07/01/2023 Multifocal pneumonia 04/15/2023 024 Acute respiratory failure wi th hypoxia and hypercapnia 04/14/2023 05/18/2023 BiPAP (biphasic positive air way pressure) dependence 10/21/2022 11/06/2022 Dementia 10/21/2022 06/01/2023 Panic disorder 04/15/2022 06/25/2023 Overview (04/15/2022): Apr 2009, swith stent placement Shortness of breath 11/05/2021 07/01/19 Hypotension due to hypovolemia 08/14/2020 11/05/2021 ASCVD (arteriosclerotic card iovascular disease) 01/30/2020 09/01/2022 Encounters Date Type Department Care Team Description 10/24/2024 Orders Only [facility] Internal Medicine - Family Medicine [address] [place] [address] Michael Steiner DO Venous insufficiency of both lower extremities (Primary Dx) 10/24/2024 Telephone [facility] - Family Medicine [address] [place] [address] Megan Talley CMA 10/13/2024 Refill [facility] - Family Medicine [address] [place] [address] Michael Steiner DO Peripheral polyneuropathy 10/11/2024 Travel 10/07/2024 11:30 AM EDT Office Visit [facility] - Family Medicine [address] [place] [address] Michael Steiner DO Cervicogenic headache (Primary Dx); Orthostatic hypotension; Chronic heart failure with preserved ejection fraction ([facility]-HCC); Fibromyalgia syndrome 10/06/2024 Travel 09/04/2024 Orders Only [facility] - Family Medicine [address] [place] [address] Michael Steiner DO 09/04/2024 Refill [facility] - Family Medicine [address] [place] [address] Michael Steiner DO Peripheral polyneuropathy 09/01/2024 11:15 AM EDT Office Visit [facility] [address] [place] [phone] Myriam Peacock MD Chronic heart failure with preserved ejection fraction (CMS-HCC) (Primary Dx); Atherosclerotic heart disease of [place] coronary artery with other forms of angina pectoris; Hx of CABG 08/30/2024 Travel from Last 3 Months Immunizations No known immunizations Family History Medical History Relation Name Comments Alcohol abuse Father Dementia Father Cancer Maternal Grandmother Cervical cancer Maternal Grandmother Depression Mother Heart failure Mother Hypertension Mother Breast cancer Neg Hx Relation Name Status Comments Brother 1 Alive Brother 2 Alive Father Alive Maternal Grandfather Maternal Grandmother Mother Paternal Grandfather Paternal Grandmother Social History Tobacco Use Types Packs/Day Years Used Date Smoking Tobacco: Former Cigarettes 1 40 0 09/1981 - 09/2021 Smokeless Tobacco: Never Tobacco Cessation:Counseling Given: Not Answered Comments:5-6 cigerettes a day Alcohol Use Standard Drinks/Week Comments Not Currently 0 (1 standard drink = 0.6 oz pur e alcohol) last use 15 years ago [facility] Utilities Answer Date Recorded In the [...] often do you attend chur ch or nondenominational services? More than 4 times per year 07/25/2023 Do you belong to any clubs o r organizations such as synagogue groups, unions, fraternal or athletic groups, or [...] 03/05/2024 PHQ-2 Answer Date Recorded Total Score 15 10/07/2024 [facility] ional [facility] - Occupational Stress [...] Recorded Do you need help finding a [place] [employer] career center and/or a training program? No 07/25/2023 Hunger Screening Answer Date Recorded Within the past 12 months we worried whether our food would run out before we got money to buy more. Never True 10/07/2024 Within the past 12 months th e food we bought just didn't last and we didn't have money to get more. Never True 10/07/2024 Purpose - Life Answer Date Recorded I have a purpose and direction in my life. Stron gly Agree 07/25/2023 Comments No Sex and Gender Information Value Date Recorded Sex Assigned at Female 09/03/2020 8:51 AM EDT Legal Sex Female 2:26 PM EDT Gender Identity Female 09/03/2020 8:51 AM EDT Sexual Orientation Straight 03/28/2023 8: 29 PM EST Last Filed Vital Signs Vital Sign Reading Time Taken Comments Blood Pressure 122/70 10/07/2024 11:44 AM EDT Pulse 90 10/07/2024 11:44 AM EDT Temperature 36.6 C (97.9 F) 10/07/2024 11:44 AM EDT Respiratory Rate 20 10/07/2024 11:4 4 AM EDT Oxygen Saturation 97% 10/07/2024 11: 44 AM EDT Inhaled Oxygen Concentration - - Weight 111.9 kg (246 lb 9.6 oz) 025 11:44 AM EDT Height 175.3 cm (5' 9.02 ) 10/07/2024 1 1:44 AM EDT Body Mass Index 36.4 10/07/2024 11:44 AM EDT Plan of Treatment Upcoming Encounters Date Type Department Care Team (Late st Contact Info) Description 10/27/2024 4:15 PM EDT Office Visit [facility] Internal Medicine - Family Medicine [address] [place] [address] Michael Steiner, DO [address] [place] [address] 11/01/2024 4:30 PM EDT Appointment [facility] - Total Rehab [address] [place] [phone] Cervicogenic headache 11/07/2024 2:30 PM EDT Office Visit [facility] Internal Medicine - Family Medicine [address] [place] [address] Michael Steiner, DO [address] [place] [address] 11/28/2024 2:00 PM EDT Office Visit [facility] - Heart Failure Clinic [address] [place] [phone] Inez Cook, MACHINE IRONER-GEROPSYCHOLOGIST [address] [place] [address] Health Maintenance Due Date Last Done Comments Adult BMI Follow Up Plan 1980 DTaP,Tdap and Td Vaccines (1 - Tdap) 1981 Pap Smear 02/18/2025 02/18/2022, 02/18/2022 Zoster (Shingles) Vaccine (1 of 2) 03/07/2025 Postponed from 05/20 (Patient Refused) Tobacco Screening 09/01/2025 09/01/2024 Adult BMI Screening 10/07/2025 10/07/2024 Depression Screening 10/07/2025 10/07/2024 Influenza Vaccine Discontinued Goals Goal Patient Goal Type Associated Problems Recent Progress Patient-Stated? Author home General Yes Jimena Snider LSW Note: Evaluation of progress towards goal: under assessment Medical Devices Implanted Type Area Software Packager Device Identifier Shelf Expiration Date Model / Serial / Lot Sj Xience Jocelin 2.75x28 Rx - [id number] Implanted:Qty : 1 on 01/09/2020 by Yefri Khan MD at [facility] Stent N/A: Arterial GENTILE VASCULAR [id number] 07/20/2020 [id number] / / [id number] Sj Xience Jocelin 2.75x8 Rx - [id number] Implanted:Qty : 1 on 01/09/2020 by Yefri Khan MD at [facility] Stent N/A: Arterial GENTILE VASCULAR [id number] 10/24/2022 [id number] / / [id number] Procedures Procedure Name Priority Date/Time Associated Diagnosis Comments PAP SMEAR Routine 02/18/2022 10:08 AM EDT Encounter for screening for malignant neoplasm of cervix Encounter for screening for human papillomavirus (HPV) from Last 3 Months or Most Recently Relevant to Health Maintenance Results * Pap Smear (02/18/2022 10:08 AM EDT) 02/18/2022 10:0 8 AM EDT 02/18/2022 10:09 AM EDT Narrative COPATH - 02/28/2022 1:19 PM EDT [facility] [address] [place] [address] Gynecologic Cytology Consultation Patient Name:MONET YORK:1960 (Age: 61)Gender:FTaken:02/18/2022eported:02/28/2022hysician(s):Ashtyn Hackett M.D. ([phone])Copy To: Rec. #:[id number]: #[id number] Final Cytologic Interpretation ThinPrep Pap Test (Not otherwise specified): Satisfactory for evaluation. NEGATIVE FOR INTRAEPITHELIAL LESION OR MALIGNANCY. [facility]/02/28/2022 Interpretation performed at [facility], [address] [place] [address], License number: [id number]. Electronically Signed Out By RAZIA Ambrosio(ASCP) Date of Last Menstrual Period: (None Given) Other Clinical Conditions: Z12.4 Screening for malignant neoplasm of cervix Z11.51 Screening for HPV Source of Specimen ThinPrep Pap Test (Not otherwise specified) Thin Prep Pap (IT COMMUNICATIONS MANAGER) Fee Code(s): G0145 Ashtyn Hackett MD PATHOLOGY/CYTOLOGY ORDERABLES nal Result COPATH from Last 3 Months or Most Recently Relevant to Health Maintenance Insurance [place] MEDICARE Advance Directives Documents on File Type Date Recorded Patient Buttermaker Helper Expl anation Durable Power of Lobster Catcher 05/15/2023 8:14 AM Living Will 12/19/2021 11:54 AM [place]IVING [place] Living Will 11/22/2021 1:59 PM Durable Power of Lobster Catcher 11/22/2021 1:58 PM * Full Code (Latest Code Status on File) Date Activated Date Inactivated Comments 08/28/2023 4:38 AM 08/29/2023 11:50 AM * Full Code Date Activated Date Inactivated Comments 08/28/2023 4:09 AM 08/28/2023 4:38 AM * Full Code Date Activated Date Inactivated Comments 07/25/2023 9:03 PM 07/27/2023 4:44 PM * Full Code Date Activated Date Inactivated Comments 05/28/2023 1:53 AM 05/28/2023 12:27 PM * Full Code Date Activated Date Inactivated Comments 04/14/2023 10:09 PM 04/29/2023 6:44 PM Care Teams Break And Load Operator Relationship Specialty Start Date End Date Michael Steiner DO [address] [place] [address] PCP - General Internal Medicine 12/17/23
--- OUTSIDE RECORDS SUMMARY | 2024-10-27 08:26 | XMS_ITS | Encounter Summary ---
Author Organization [facility] Address [address] [place] [address] Care Team Providers Care Surveyor Instrument Assistant Name Role Phone Michael Steiner MD Primary Care Provider [phone] Encounter Details Date Type Department Care Team (Late st Contact Info) Description 03/17/2024 Abstract [facility] [address] [place] [phone] Patricia Mcclure MA Social History Tobacco Use [...] EST Office Visit [facility] [address] [place] [address] Sydnie Guerrero DO [address] [place] [address] documented as of this encounter Visit Diagnoses Not on filedocumented in this encounter Care Teams Surveyor Instrument Assistant Relationship Specialty Start Date End Date Michael Steiner MD PCP - General Internal Medicine 08/11/23 documented as of this encounter
--- OUTSIDE RECORDS SUMMARY | 2024-10-27 08:26 | XMS_ITS | Encounter Summary ---
Author Organization [facility] tem Address [id number] [address] [place] [address] Care Team Providers Care Entry Level Programmer Name Role Phone Michael Steiner DO Primary Care Provider [phone] Encounter Details Date Type Department Care Team (Late st Contact Info) Description 02/12/2022 Patient Outreach [facility] - Radiation Oncology [address] [place] [phone] Lissette Baez RN Social History Tobacco Use Types Packs/Day [...] week 01/09/2020 How often do you attend congregation or zoroastrianism serv ices? Never 01/09/2020 Do you belong to any clubs o r organizations such as congregation groups, unions, fraternal or athletic groups, or [...] Recorded Do you need help finding a [employer] career center and/or a training program? No [...] have Coronavirus / COVID-19? No / Unsure 02/13/2022 10:13 AM EDT documented as of this encounter Progress Notes * Lissette Baez RN - 02/12/2022 11:32 AM EDT Nurse Navigation Progress Note 02/12/22 Monet Recinos is a 61 y.o. year old female. Navigation basics: Navigation For: Thoracic Touch point: Location of Visit: Telephone Treatment(s): No data recorded Distress Tool: No data recorded Other: No data recorded Synopsis: Phoned patient and reminded that it is time to schedule repeat ct chest, voiced understanding Lissette Baez RN documented in this encounter Plan of Treatment Upcoming Encounters Date Type Department Care Team (Late st Contact Info) Description 10/27/2024 4:15 PM EDT Office Visit [facility] Internal [facility] - Family Medicine [address] [place] [address] Michael Steiner, DO [address] [place] [address] 11/01/2024 4:30 PM EDT [facility]ointment [facility] [address] [place] [phone] Cervicogenic headache 11/07/2024 2:30 PM EDT [facility] [address] [place] [address] Michael Steiner, DO [address] [place] [address] 11/28/2024 2:00 PM EDT Office Visit [facility] - Heart Failure Clinic [address] [place] [address] Inez Cook, ASSISTANT BROKER-SCARFING MACHINE OPERATOR [address] [place] [address] documented as of this encounter Visit Diagnoses [...] documented as of this encounter Care Teams Entry Level Programmer Relationship Specialty Start Date End Date Michael Steiner DO [address] [place] [address] PCP - General Internal Medicine 12/17/23 documented as of this encounter
--- OUTSIDE RECORDS SUMMARY | 2024-10-27 08:26 | XMS_ITS | Encounter Summary ---
Author Organization [facility] Address [address] [place] [address] Care Team Providers Care Certified Medical Assistant Name Role Phone Michael Steiner MD Primary Care Provider [phone] Encounter Details Date Type Department Care Team (Late st Contact Info) Description 03/17/2024 Abstract [facility] [address] [place] [phone] Patricia Mcclure MA Social History Tobacco Use [...] EST Office Visit [facility] [address] [place] [address] Sydnie Guerrero DO [address] [place] [address] documented as of this encounter Visit Diagnoses Not on filedocumented in this encounter Care Teams Certified Medical Assistant Relationship Specialty Start Date End Date Michael Steiner MD PCP - General Internal Medicine 08/11/23 documented as of this encounter
--- OUTSIDE RECORDS SUMMARY | 2024-10-27 08:26 | XMS_ITS | Encounter Summary ---
Author Organization [facility] tem Address [facility] [id number] [address] [place] [address] Care Team Providers Care Marine Consultant Name Role Phone Michael Steiner DO Primary Care Provider [phone] Encounter Details Date Type Department Care Team (Late st Contact Info) Description 02/13/2023 Telephone [facility] - Wound Care Outpatient [address] [place] [phone] Rosangela Tomlinson Social History Tobacco Use Types Packs/Day Years [...] How often do you attend taoism or religion serv ices? Never 01/09/2020 Do you belong [...] Recorded Do you need help finding a Socialthing center and/or a training program? No 01/09/2020 [...] Description 10/27/2024 4:15 PM EDT Office Visit [facility] Internal [facility] - Family Medicine [address] [place] [phone] Michael Steiner, [address] [place] [address] 11/01/2024 4:30 PM EDT Appointment [facility] [place] - Total Rehab [address] [place] [phone] Cervicogenic headache 11/07/2024 2:30 PM EDT [facility] [address] [place] [phone] Michael Steiner DO [address] [place] [address] 11/28/2024 2:00 PM EDT Office Visit [facility] - Heart Failure Clinic [address] [place] [phone] Inez Cook, HVAC/R INSTRUCTOR-ENGINEER SPECIALIST [address] [place] [address] documented as of this encounter [...] documented as of this encounter Care Teams Marine Consultant Relationship Specialty Start Date End Date Michael Steiner DO [address] [place] [address] PCP - General Internal Medicine 12/17/23 documented as of this encounter
--- OUTSIDE RECORDS SUMMARY | 2024-10-27 08:27 | XMS_ITS | Encounter Summary ---
Author Organization [employer] [facility] [employer] [facility] Address [id number] [address] [place] [address] Care Team Providers Care Real Estate Administrative Assistant Name Role Phone Joansunshine Michael Janae CABRERA Primary Care Provider [phone] Encounter Details Date Type Department Care Team (Late st Contact Info) Description 08/31/2020 Orders Only [facility] Cardiology [address] [place] [phone] Sharon Beaver, VICTOR M Social History Tobacco Use Types Packs/Day Years [...] week 01/09/2020 How often do you attend episcopal or catholic serv ices? Never 01/09/2020 Do you belong to any clubs o r organizations such as episcopal groups, unions, fraternal or athletic groups, or [...] Recorded Do you need help finding a [employer] center and/or a training program? No 01/09/2020 [...] have Coronavirus / COVID-19? No / Unsure 09/03/2020 3:45 PM EDT documented as of this encounter Plan of Treatment Upcoming Encounters Date Type Department Care Team (Late st Contact Info) Description 10/27/2024 4:15 PM EDT Office Visit [facility] Internal Medicine - Family Medicine [address] [place] [phone] Michael Steiner, DO [address] [place] [address] 11/01/2024 4:30 PM EDT Appointment [facility] [place] - Total Rehab [address] [place] [phone] Cervicogenic headache 11/07/2024 2:30 PM EDT Office Visit [facility] Internal Medicine - Family Medicine [address] [facility] [place] [address] Michael Steiner DO [address] [place] [address] 11/28/2024 2:00 PM EDT Office Visit [facility] - Heart Failure Clinic [address] [place] [phone] Inez Cook, HUMAN RESOURCES OPERATIONS DIRECTOR-SWEATBAND DECORATING MACHINE OPERATOR [address] [place] [address] documented as of this encounter Visit Diagnoses [...] documented as of this encounter Care Teams Real Estate Administrative Assistant Relationship Specialty Start Date End Date Michael Steiner DO [address] [facility] [place] [address] PCP - General Internal Medicine 12/17/23 documented as of this encounter
--- OUTSIDE RECORDS SUMMARY | 2024-10-27 08:27 | XMS_ITS | Encounter Summary ---
Author Organization [employer] [facility] Address [facility] [id number] [address] [place] [address] Care Team Providers Care Sludge Filtration Operator Name Role Phone Joansunshine Michael Janae CABRERA Primary Care Provider [phone] Reason for Visit * Reason Onset Date Comments Weight gain and swelling 08/31/2020 Encounter Details Date Type Department Care Team (Late st Contact Info) Description 08/31/2020 Telephone [facility] Cardiology [address] [place] [address] Sharon Beaver, VICTOR M Weight gain and swelling Social History Tobacco Use Types Packs/Day Years [...] week 01/09/2020 How often do you attend restoration or sikhism serv ices? Never 01/09/2020 Do you belong [...] Recorded Do you need help finding a [employer] center and/or a training program? No 01/09/2020 [...] Telephone Encounter - Sharon Beaver RN - 08/31/2020 1:10 PM EDT Home health nurse calls re pt swelling in lower extremities -need neew diagnosis on order for hose-pt has gained 2.5 lb in 3 days -lm with pt to discuss breathing-status and appt on Thursday documented in this encounter Plan of Treatment Upcoming Encounters Date Type Department Care Team (Late st Contact Info) Description 10/27/2024 4:15 PM EDT Office Visit [facility] Internal Medicine - Family Medicine [address] [place] [phone] Michael Steiner, DO [address] [place] [address] 11/01/2024 4:30 PM EDT Appointment [facility] - Total Rehab [address] [place] [phone] Cervicogenic headache 11/07/2024 2:30 PM EDT [facility] [address] [place] [phone] Michael Steiner, DO [address] [place] [address] 11/28/2024 2:00 PM EDT Office Visit [facility] - Heart Failure Clinic [address] [place] [phone] Inez Cook, GLOVE BOARDER-DECALER [address] [place] [phone] documented as of this encounter Visit Diagnoses [...] documented as of this encounter Care Teams Sludge Filtration Operator Relationship Specialty Start Date End Date Michael Steiner DO [address] [place] [address] PCP - General Internal Medicine 12/17/23 documented as of this encounter
--- OUTSIDE RECORDS SUMMARY | 2024-10-27 08:27 | XMS_ITS | Encounter Summary ---
Author Organization [employer] Address [facility] [id number] [address] [place] [address] Care Team Providers Care Presser Machine Name Role Phone Michael Steiner DO Primary Care Provider [phone] Encounter Details Date Type Department Care Team (Late st Contact Info) Description 09/17/2023 Telephone [facility] Pulmonary/Sleep Medicine [address] [address] Shari Garcia RN Social History Tobacco Use Types Packs/Day Years Used Date Smoking Tobacco: Every Day Cigarettes 1 40 Started: 09/1981; Last attempted to quit: 09/2021 Smokeless Tobacco: Former Chew Comments:5-6 cigerettes a da y Alcohol Use Standard Drinks/Week Comments Not Currently 0 (1 standard drink = 0.6 oz pur e alcohol) last use 15 years ago [facility] Utilities Answer Date Recorded In the past 12 months has [employer], gas, oil, or water [employer] threatened to shut off services in your [...] week 07/25/2023 How often do you attend [facility] or scientologist services? More than 4 times per year [...] PHQ-2 Answer Date Recorded Total Score 0 09/09/2023 [facility] Occupat ional Health - [...] Recorded Do you need help finding a [facility] career center and/or a training program? No 07/25/2023 Hunger Screening Answer Date Recorded Within the past 12 months we worried whether our food would run out before we got money to buy more. Never True 09/09/2023 Within the past 12 months th e food we bought just didn't last and we didn't have money to get more. Never True 09/09/2023 Purpose - Life Answer Date Recorded I [...] Telephone Encounter - Shari Garcia RN - 09/17/2023 7:32 AM EDT Wheel Inspector spoke to patient and informed per Dr Dumont, CT CHEST reviewed. It showed RML and RLL atelectasis. Would encourage regular exercise if at all possible to help with atelectasis along with deep breathing exercises. Scheduled f/u appt on 12-03-23. Patient agreeable ----- Message from Guadalupe Dumont MD sent at 09/16/2023 4:45 PM EDT ----- Right middle and lower lobe atelectasis, would encourage regular exercise if at all possible to help with this. Deep breathing exercises. Has follow-up planned in September to November timeframe with Dr. Meadows and can discuss in detail. documented in this encounter Plan of Treatment Upcoming Encounters Date Type Department Care Team (Late st Contact Info) Description 10/27/2024 4:15 PM EDT Office Visit [facility] Internal Medicine - Family Medicine [address] [place] [phone] Michael Steiner DO [address] [place] [address] 11/01/2024 4:[address] [facility] - Total Rehab [address] [place] [phone] Cervicogenic headache 11/07/2024 2:30 PM EDT Office Visit [facility] Internal Medicine - Family [facility] [address] [place] [phone] Michael Steiner DO [address] [place] [address] 11/28/2024 2:00 PM EDT Office Visit [facility] - Heart Failure Clinic [address] [place] [phone] Inez Cook, WIREWORKER SUPERVISOR-PLATFORM MILL SUPERVISOR [address] [place] [address] documented as of this encounter [...] Noted Time PHQ-9 Depression Total Score: 0 09/09/19 24 1:00 PM EDT documented as of this encounter Care Teams Presser Machine Relationship Specialty Start Date End Date Michael Steiner DO [address] [place] [address] PCP - General Internal Medicine 12/17/23 documented as of this encounter
--- OUTSIDE RECORDS SUMMARY | 2024-10-27 08:27 | XMS_ITS | Encounter Summary ---
Author Organization [facility] [employer] [facility] tem Address [facility] [place]-[id number] [address] [place] [address] Care Team Providers Care Precision Lens Centerer And Edger Name Role Phone Joansunshine Michael Janae CABRERA Primary Care Provider [phone] Reason for Visit * Reason Comments Med Refill Encounter Details Date Type Department Care Team (Late st Contact Info) Description 09/03/2022 Refill [facility] - Heart Failure Clinic [address] [place] [phone] Cynthia Buchanan, SKETCHER-NISSAN SALES CONSULTANT [address] [place] [address] Chronic heart failure with preserved ejection fraction (CMS-HCC); Shortness of breath Social History Tobacco Use Types Packs/Day Years [...] week 01/09/2020 How often do you attend restorationist or hindu serv ices? Never 01/09/2020 Do you belong to any clubs o r organizations such as restorationist groups, unions, fraternal or athletic groups, or [...] Recorded Do you need help finding a [employer] career center and/or a training program? No [...] - Family Medicine [address] [place] [phone] Michael Steiner, [address] [place] [address] 11/01/2024 4:30 PM EDT Appointment [facility] - Total Rehab [address] [place] [phone] Cervicogenic headache 11/07/2024 2:30 PM EDT Office Visit [facility] Internal Medicine - Family Medicine [address] [facility] [place] [phone] Michael Steiner DO [address] [place] [address] 11/28/2024 2:00 PM EDT Office Visit [facility] - Heart Failure Clinic [address] [place] [phone] Inez Cook, SKETCHER-NISSAN SALES CONSULTANT [address] [place] [address] documented as of this encounter Visit Diagnoses Diagnosis Chronic heart failure with preserved ejection fraction (CMS-HCC) Shortness of breath Cervicogenic headache Headache documented in this encounter [...] documented as of this encounter Care Teams Precision Lens Centerer And Edger Relationship Specialty Start Date End Date Michael Steiner DO [address] [place] [address] PCP - General Internal Medicine 12/17/23 documented as of this encounter
--- OUTSIDE RECORDS SUMMARY | 2024-10-27 08:27 | XMS_ITS | Encounter Summary ---
Author Organization [facility] Address [facility] [id number] [address] [place] [address] Care Team Providers Care Welfare Service Aide Name Role Phone JoanMichael gonsalez Janae CABRERA Primary Care Provider [phone] Reason for Visit * Reason Onset Date Comments Transition Of Care 09/01/2023 Encounter Details Date Type Department Care Team (Late st Contact Info) Description 09/01/2023 [facility]phone [facility] [address] [facility] [place] [phone] Poornima Bonner, VICTOR M Transition Of Care Social History Tobacco Use Types Packs/Day Years Used Date Smoking Tobacco: Former Cigarettes 1 40 0 09/1981 - 09/2021 Smokeless Tobacco: Former Chew Comments:5-6 cigerettes a da y Alcohol Use Standard Drinks/Week Comments Not Currently 0 (1 standard drink = 0.6 oz pur e alcohol) last use 15 years ago [facility] Utilities Answer Date Recorded In the past 12 months has th [employer], gas, oil, or water company threatened [...] often do you attend chur ch or latter-day services? More than 4 times per year [...] PHQ-2 Answer Date Recorded Total Score 0 08/10/2023 [facility] of Occupat ional Health - Occupational Stress [...] got money to buy more. Never True 08/28/2023 Within the past 12 months th e food we bought just didn't last and we didn't have money to get more. Never True 08/28/2023 Purpose - Life Answer Date Recorded I [...] encounter Miscellaneous Notes * Telephone Encounter - Poornima Bonner RN - 09/01/2023 3:50 PM EDT Images from the original note were not included. Transition of Care Additional Questions/Concerns Requiring PCP Follow-Up: No ZACHARY scheduled. Patient does have an established scheduled appt on 09/11/23. Can this be changed to a ZACHARY? Wound need to be prior to 09/11/23. MRI, US, and CT are scheduled 09/10/23. This documentation is being used for Transition of Care purposes: Yes Goal: Patient will demonstrate a safe transition from hospital to home. Diagnosis on Discharge: Principal Problem: Acute pulmonary embolism without acute cor pulmonale, unspecified pulmonary embolism type ([facility]) Active Problems: Closed wedge compression fracture of T6 vertebra with routine healing BONY treated with BiPAP Chronic heart failure with preserved ejection fraction ([facility]) Bipolar 2 disorder, major depressive episode ([facility]) Discharge Specialty: Orthopedic and Vascular Name of Discharging [facility] Date of Facility Discharge: 08/29/23 Date of Interactive Contact and Name of Physicist [employer]: Spoke with friend Norma on 09/01/23 Medication Review Completed: Yes Medication Reconciliation Questions/Concerns: START taking: apixaban (ELIQUIS)-Take 2 tablets (10 mg total) by mouth 2 (two)times a day for 7 days, THEN 1 tablet (5 mg total) 2 (two) times a day for 21 days. Start taking on: August 29, 2023 lidocaine (LIDODERM)- Place 1 patch on the skin in the morning. Remove & Discard patch within 12 hours or as directed by MD. CHANGE how you take: HYDROcodone-acetaminophen (NORCO) Torsemide- take 80 mg daily Follow Up Appointments with Providers: Primary: Michael Steiner Jr, DO scheduled appt on 09/11/23 Specialty: Surgery Dr Vincent 09/02/23 @ 8:45 Specialty: Specialty: Review of Pending Lab/Diagnostic Tests and Plan for Completion: MRI of spine, venous duplex on BLE, and CT chest are scheduled for 09/10/23. Assessment and Support of Treatment Regimen Adherence and Medication Management: Patient has pain in back. Not using the lidoderm patches, is taking Benedict but does not take the pain away. Patient is calm, Friend to support and assist as needed, primary contact Reviewed medications and patient is taking Aware of scheduled appts No DME needed No respiratory distress and on RA most of the time per friend Norma. Education Provided by [facility] to Support Self-Management, Independent Living and ADLs: -Take medications as prescribed -Regular diet with small frequent meals. -Cough and deep breathing exercises and the incentive spirometer 6 times a day -Pain management- encouraged use of lidodem patch with Benedict. Ice. -Follow up with providers as scheduled -Call PCP for any new or worsening symptoms, call 911 for emergent concerns. -Patient verbalized understanding. -Call 911 if you have chest pain or trouble breathing. Call 911 if you have any of the warning signs of stroke: SUDDEN: trouble speaking or understanding other people, trouble seeing out of one eye or both, weakness on one side of your face or body, trouble with your balance, seizure without known cause, or passing out. -Explained TCM services that are available. Explained that [facility] will be available to help with a minimum of 30 days post discharge. Poornima Bonner's contact information was provided and encouraged patient to call for assistance as needed. Communication with Home Health Agencies and Other Services Utilized/Needed by the Patient: * Telephone Encounter - Michael Steiner DO - 09/01/2023 3:50 PM EDT Message noted. That is fine with me. Is 09/10 within the 14 day window? * Telephone Encounter - Cathleen Arreola - 09/01/2023 3:50 PM EDT Her appointment is actually 09/08 documented in this encounter Plan of Treatment Upcoming Encounters Date Type Department Care Team (Late st Contact Info) Description 10/27/2024 4:15 PM EDT Office Visit [facility] Internal Medicine - Family Medicine [address] [place] [phone] Michael Steiner DO [address] [place] [address] 11/01/2024 4:30 PM EDT [facility]ointment [facility] - Total Rehab [address] [place] [phone] Cervicogenic headache 11/07/2024 2:30 PM EDT [facility] Medicine [address] [place] [phone] Michael Steiner, [address] [place] [address] 11/28/2024 2:00 PM EDT Office Visit [facility] - Heart Failure Clinic [address] [place] [phone] Inez Cook, BIOMETRICS INSTRUCTOR-LABORER ADJUSTABLE STEEL JOIST [address] [place] [address] documented as of this encounter Goals Goal [...] Noted Time PHQ-9 Depression Total Score: 0 08/10/19 1:05 PM EDT documented as of this encounter Care Teams Welfare Service Aide Relationship Specialty Start Date End Date Michael Steiner DO [address] [place] [address] PCP - General Internal Medicine 12/17/23 documented as of this encounter
--- OUTSIDE RECORDS SUMMARY | 2024-10-27 08:27 | XMS_ITS | Encounter Summary ---
Author Organization [facility] Jaco Solarsi s tem Address [id number] [place] [address] Care Team Providers Care Copyist Name Role Phone Michael Steiner DO Primary Care Provider [phone] Reason for Referral * Diagnostic Imaging (Routine) - Closed Specialty Diagnoses / Procedures Referred By Rick rahman Referred To Contact Radiology Diagnoses Pulmonary nodule Procedures PET CT skull to thigh Grupo Nguyen MD [address] [address] Phone: tel: fax: [place] [address] [place] [address] Phone: tel: Referral ID Status Reason Start Date Expiration Date Visits Re quested Visits Authorized [id number] Closed 10/17/2021 10/17/2022 1 1 Encounter Details Date Type Department Care Team (Late st Contact Info) Description 10/17/2021 Orders Only [facility] Pulmonary/Sleep Medicine [address] [phone] Juli Mixon RN Pulmonary nodule (Primary Dx) Social History Tobacco Use Types [...] week 01/09/2020 How often do you attend mormon or sabianism serv ices? Never 01/09/2020 Do you belong to any clubs o r organizations such as mormon groups, unions, fraternal or athletic groups, or [...] Recorded Do you need help finding a [facility] career center and/or a training program? No [...] have Coronavirus / COVID-19? No / Unsure 10/16/2021 12:48 PM EDT documented as of this encounter Plan of Treatment Upcoming Encounters Date Type Department Care Team (Late st Contact Info) Description 10/27/2024 4:15 PM EDT [facility] [address] [place] [address] Michael Steiner, DO [address] [place] [address] 11/01/2024 4:30 PM EDT [facility] [address] [place] [phone] Cervicogenic headache 11/07/2024 2:30 PM EDT [facility] [address] [place] [address] Michael Steiner, DO [address] [place] [address] 11/28/2024 2:00 PM EDT Office Visit [facility] [address] [place] [phone] Inez Cook, PSYCHOLOGY PROFESSOR-BIOPROCESS DEVELOPMENT ENGINEER [address] [place] [phone] documented as of this encounter Results * PET CT skull to thigh (11/04/2021 10:01 AM EDT) Anatomical Region Laterality Modality Abdomen, Lung, Pelvis, Spine , Chest, Neck, Head, Head and Neck, Body N/A Positron Emission Graham graphy (PET) 11/04/2021 10:5 0 AM EDT Narrative 11/04/2021 10:57 AM EDT Clinical history:Pulmonary nodule Previous malignancy:No Indication:Malignant potential Radioisotope:17.0 millicuries FDG. Blood milligrams per deciliter. Blood glucose reference range 65-90 9 mg/dL. Comparison:CT chest of 10/07/2021 Findings: PET CT was performed from the skull base to mid thigh level. Images were reviewed in the sagittal axial and coronal planes with and without attenuation correction. PET: * No abnormal FDG activity corresponding to the previously noted nodular opacity in the inferior segment of lingula. There is a normal biodistribution of activity throughout the chest abdomen and pelvis. No abnormal FDG distribution. CT: * Previously noted nodular opacity inferior segment lingula is less conspicuous on today's CT portion of the exam. There may be a lung markings right through this finding. I suspect this is prior infection or rounded atelectasis. * Lower lobe atelectasis. * Small paratracheal nodes. * Severe calcification of the LAD circumflex complex right coronary arteries. * Moderately sized hiatal hernia. * No retroperitoneal pelvic nor inguinal adenopathy. Impression: * No suspicious FDG activity. I suspect the nodular opacity is likely a sequelae of a round atelectasis or prior infection. Remaining PET CT unremarkable as above. Follow-up CT recommended in 6 months. * Severe multivessel coronary artery calcification Finalized by Saqib Saldana MD on 11/04/2021 10:57 AM Procedure Note Saqib Saldana MD - 11/04/2021 Clinical history:Pulmonary nodule Previous malignancy:No Indication:Malignant potential Radioisotope:17.0 millicuries FDG. Blood [id number] milligrams perdeciliter. Blood glucose reference range 65-90 9 mg/dL. Comparison:CT chest of 10/07/2021 Findings: PET CT was performed from the skull base to mid thigh level. Images werereviewed in the sagittal axial and coronal planes with and withoutattenuation correction. PET: * No abnormal FDG activity corresponding to the previously noted nodularopacity in the inferior segment of lingula. There is a normalbiodistribution of activity throughout the chest abdomen and pelvis. Noabnormal FDG distribution. CT: * Previously noted nodular opacity inferior segment lingula is lessconspicuous on today's CT portion of the exam. There may be a lungmarkings right through this finding. I suspect this is prior infection orrounded atelectasis. * Lower lobe atelectasis. * Small paratracheal nodes. * Severe calcification of the LAD circumflex complex right coronaryarteries. * Moderately sized hiatal hernia. * No retroperitoneal pelvic nor inguinal adenopathy. Impression: * No suspicious FDG activity. I suspect the nodular opacity is likely asequelae of a round atelectasis or prior infection. Remaining PET CTunremarkable as above. Follow-up CT recommended in 6 months. * Severe multivessel coronary artery calcification Finalized by Saqib Saldana MD on 11/04/2021 10:57 AM Grupo Nguyen MD IMG PET ORDERABLES Final Resul t * SPIROMETRY AND DLCO (11/01/2021 1:24 PM EDT) Narrative MANUALLY TRANSCRIBED RESULTS - 11/02/2021 10:09 AM EDT Consistent with a moderate ventilatory defect. FEV1 measures 1.6 L, 56% predicted. Expiratory flow rates are the lowest limit of normal and a minor obstructive defect is possible. Diffusing capacity is reduced may suggest emphysema given history of cigarette smoking. A component of restriction may be present. Elevation in BMI is noted. Clinical correlation is advised. Grupo Nguyen MD PFT ORDERABLES Final Result MANUALLY TRANSCRIBED RESULTS documented in this encounter Visit Diagnoses Diagnosis Pulmonary nodule- Primary Other diseases of lung, not elsewhere classified Pulmonary nodule Other diseases of lung, not elsewhere classified Pulmonary nodule Other diseases of lung, not elsewhere classified Cervicogenic headache Headache documented in this encounter [...] documented as of this encounter Care Teams Copyist Relationship Specialty Start Date End Date Michael Steiner DO [address] [place] [address] PCP - General Internal Medicine 12/17/23 documented as of this encounter
--- OUTSIDE RECORDS SUMMARY | 2024-10-27 08:27 | XMS_ITS | Encounter Summary ---
Author Organization [facility] tem Address [id number] [address] [place] [address] Care Team Providers Care Tinsmith Apprentice Name Role Phone Joansunshine Michael Janae CABRERA Primary Care Provider [phone] Reason for Visit * Reason Comments Med Refill Encounter Details Date Type Department Care Team (Late st Contact Info) Description 11/06/2022 Refill [facility] [address] [place] [phone] Yuniel Stringer PA [address] [facility] [place] [address] Social History Tobacco Use Types Packs/Day Years [...] week 01/09/2020 How often do you attend sabianism or restorationism serv ices? Never 01/09/2020 Do you belong to any clubs o r organizations such as sabianism groups, unions, fraternal or athletic groups, or [...] Recorded Do you need help finding a [employer] center and/or a training program? No 01/09/2020 [...] Internal Medicine - Family Medicine [address] [place] [address] Michael Steiner, [address] [place] [address] 11/01/2024 4:30 PM EDT [facility] [address] [place] [phone] Cervicogenic headache 11/07/2024 2:30 PM EDT Office Visit [facility] Internal Medicine - Family Medicine [address] [place] [phone] Michael Steiner DO [address] [place] [address] 11/28/2024 2:00 PM EDT Office Visit [facility] [address] [place] [phone] Inez Cook, CORRECTIONAL COUNSELOR-EMERGENCY MEDICAL SERVICE MANAGER [address] [place] [phone] documented as of this encounter Visit Diagnoses [...] documented as of this encounter Care Teams Tinsmith Apprentice Relationship Specialty Start Date End Date Michael Steiner DO [address] [place] [address] PCP - General Internal Medicine 12/17/23 documented as of this encounter
--- OUTSIDE RECORDS SUMMARY | 2024-10-27 08:27 | XMS_ITS | Encounter Summary ---
Author Organization [employer] tem Address [id number] [address] [place] [address] Care Team Providers Care Life Skills Instructor Name Role Phone Michael Steiner DO Primary Care Provider [phone] Encounter Details Date Type Department Care Team (Late st Contact Info) Description 10/16/2023 Orders Only [facility] Internal Medicine - Family Medicine [address] [place] [address] Michael Steiner DO [address] [place] [address] B12 deficiency (Primary Dx) Social History Tobacco Use Types Packs/Day Years Used Date Smoking Tobacco: Former Cigarettes 1 40 0 09/1981 - 09/2021 Smokeless Tobacco: Never Comments:5-6 cigerettes a da y Alcohol Use Standard Drinks/Week Comments Not Currently 0 (1 standard drink = 0.6 oz pur e alcohol) last use 15 years ago [facility] Utilities Answer Date Recorded In the past 12 months has [employer] electric, gas, oil, or water company threatened [...] How often do you attend chur or congregation services? More than 4 times per year 07/25/2023 Do you belong to any clubs o r organizations such as hinduism groups, unions, fraternal or athletic groups, or [...] PHQ-2 Answer Date Recorded Total Score 0 09/30/2023 [facility] - [...] Recorded Do you need help finding a [facility] career center and/or a training program? No 07/25/2023 Hunger Screening Answer Date Recorded Within the past 12 months we worried whether our food would run out before we got money to buy more. Never True 10/20/2023 Within the past 12 months th e food we bought just didn't last and we didn't have money to get more. Never True 10/20/2023 Purpose - Life Answer Date Recorded I have a purpose and direction in my life. Stron gly Agree 07/25/2023 Comments No Sex and Gender Information Value Date Recorded Sex Assigned at Female 09/03/2020 8:51 AM EDT Legal Sex Female 2:26 PM EDT Gender Identity Female 09/03/2020 8:51 AM EDT Sexual Orientation Straight 03/28/2023 8 :29 PM EST documented as of this encounter Plan of Treatment Upcoming Encounters Date Type Department Care Team (Late st Contact Info) Description 10/27/2024 4:15 PM EDT Office Visit [facility] Internal Medicine - Family Medicine [address] [place] [address] Michael Steiner, [address] [place] [address] 11/01/2024 4:30 PM EDT Appointment [facility] Re[facility] [address] [place] [phone] Cervicogenic headache 11/07/2024 2:30 PM EDT Office Visit [facility] Internal Medicine - Family Medicine [address] [place] [address] Michael Steiner, [address] [place] [address] 11/28/2024 2:00 PM EDT Office Visit [facility] [address] [place] [address] Inez Cook, VEHICLE BODY BUILDER-MARKETING ENGINEER [address] [place] [address] documented as of this encounter Goals Goal Patient Goal Type Associated Problems Recent Progress Patient-Stated? Author home General Yes Jimena Snider LSW Note: Evaluation of progress towards goal: under assessment documented as of this encounter Visit Diagnoses Diagnosis B12 deficiency- Primary Cervicogenic headache Headache documented in this encounter Additional Health Concerns Infection Onset Date Last Indicated Resolved Time COVID-19 Rule-Out 12/17/2023 12/17/2023 12/17/2023 1:50 PM EDT Assessment Noted Time PHQ-9 Depression Total Score: 0 09/30/19 1:38 PM EDT documented as of this encounter Care Teams Life Skills Instructor Relationship Specialty Start Date End Date Michael Steiner DO [address] [place] [address] PCP - General Internal Medicine 12/17/23 documented as of this encounter
--- OUTSIDE RECORDS SUMMARY | 2024-10-27 08:27 | XMS_ITS | Encounter Summary ---
Author Organization [employer] Address [id number] [address] [place] [address] Care Team Providers Care Internal Medicine Veterinary Technician Name Role Phone Michael Steiner DO Primary Care Provider [phone] Encounter Details Date Type Department Care Team (Late st Contact Info) Description 10/31/2021 Telephone [facility] Pulmonary/Sleep Medicine [address] [address] Juli Mixon RN Social History Tobacco Use Types Packs/Day [...] week 01/09/2020 How often do you attend worship or confucianist serv ices? Never 01/09/2020 Do you belong to any clubs o r organizations such as worship groups, unions, fraternal or athletic groups, or [...] Recorded Do you need help finding a [employer] center and/or a training program? No 01/09/2020 [...] have Coronavirus / COVID-19? No / Unsure 11/01/2021 12:37 PM EDT documented as of this encounter Miscellaneous Notes * Telephone Encounter - Lamar Snyder - 10/31/2021 9:11 AM EDT PT was able to be scheduled for a PET CT tomorrow, 11/01/21 * Telephone Encounter - Juli Mixon RN - 10/31/2021 9:11 AM EDT Great documented in this encounter Plan of Treatment Upcoming Encounters Date Type Department Care Team (Late st Contact Info) Description 10/27/2024 4:15 PM EDT Office Visit [facility] Internal Medicine - Family Medicine [address] [place] [phone] Michael Steiner, DO [address] [place] [address] 11/01/2024 4:30 PM EDT Appointment [facility] - [facility] Rehab [address] [place] [phone] Cervicogenic headache 11/07/2024 2:30 PM EDT [facility] [address] [place] [address] Michael Steiner, DO [address] [place] [address] 11/28/2024 2:00 PM EDT Office Visit [facility] [address] [place] [address] Inez Cook, TOWER CLIMBER-TRAIN DIRECTOR [address] [place] [address] documented as of this encounter Visit Diagnoses [...] documented as of this encounter Care Teams Internal Medicine Veterinary Technician Relationship Specialty Start Date End Date Michael Steiner DO [address] [place] [address] PCP - General Internal Medicine 12/17/23 documented as of this encounter
--- OUTSIDE RECORDS SUMMARY | 2024-10-27 08:27 | XMS_ITS | Encounter Summary ---
Author Organization [facility] tem Address [id number] [address] [place] [address] Care Team Providers Care Violin Restorer Name Role Phone Michael Steiner DO Primary Care Provider [phone] Reason for Referral * Vascular (Routine) - Closed Specialty Diagnoses / Procedures Referred By Rick rahman Referred To Contact Diagnoses Acute pulmonary embolism without acute cor pulmonale, unspecified pulmonary embolism type ([facility]) Procedures Vas venous duplex lwr bilateral Michael Steiner DO [address] [place] [address] Phone: tel: fax: [facility] [address] [place] [address] Phone: tel: Referral ID Status Reason Start Date Expiration Date Visits Re quested Visits Authorized [id number] Closed 08/31/2023 08/30/2024 1 1 * Diagnostic Imaging (Routine) - Closed Specialty Diagnoses / Procedures Referred By Rick rahman Referred To Contact Radiology Diagnoses Closed wedge compression fracture of T6 vertebra with routine healing Procedures MR thoracic spine without contrast Michael Steiner DO [address] [place] [address] Phone: tel: fax:[phone] Referral ID Status Reason Start Date Expiration Date Visits Re quested Visits Authorized [id number] Closed 08/31/2023 08/30/2024 1 1 Encounter Details Date Type Department Care Team (Late st Contact Info) Description 08/31/2023 Orders Only [facility] Internal Medicine - Family Medicine [address] [place] [address] Michael Steiner DO [address] [facility] [place] [address] Closed wedge compression fracture of T6 vertebra with routine healing (Primary Dx); Acute pulmonary embolism without acute cor pulmonale, unspecified pulmonary embolism type ([facility]) Social History Tobacco Use Types Packs/Day Years Used Date Smoking Tobacco: Former Cigarettes 1 40 0 09/1981 - 09/2021 Smokeless Tobacco: Former Chew Comments:5-6 cigerettes a da y Alcohol Use Standard Drinks/Week Comments Not Currently 0 (1 standard drink = 0.6 oz pur e alcohol) last use 15 years ago [facility] Utilities Answer Date Recorded In the past 12 months has [employer], gas, oil, or water [employer] threatened to shut off services in your [...] often do you attend chur ch or episcopal services? More than 4 times per year 07/25/2023 Do you belong to any clubs o r organizations such as confucianism groups, unions, fraternal or athletic groups, or [...] Answer Date Recorded Total Score 0 08/10/2023 [facility] - Occupational [...] Recorded Do you need help finding a [facility] career center and/or a training program? No [...] Description 10/27/2024 4:15 PM EDT Office Visit [facility] Internal Medicine - Family Medicine [address] [place] [phone] Michael Steiner, DO [address] [place] [address] 11/01/2024 4:30 PM EDT Appointment [facility] - Total Rehab [address] [place] [phone] Cervicogenic headache 11/07/2024 2:30 PM EDT Office Visit [facility] Internal Medicine - Family Medicine [address] [place] [address] Michael Steiner, DO [address] [place] [address] 11/28/2024 2:00 PM EDT Office Visit [facility] - Heart Failure Clinic [address] [place] [address] Inez Cook, GERIATRICS PHYSICIAN-APPLICATIONS ENGINEER MANUFACTURING [address] [place] [address] documented as of this encounter Goals Goal Patient Goal Type Associated Problems Recent Progress Patient-Stated? Author home General Yes Jimena Snider LSW Note: Evaluation of progress towards goal: under assessment documented as of this encounter Results * Vas venous duplex lwr bilateral (09/10/2023 9:17 AM EDT) Anatomical Region Laterality Modality Vascular Bilateral Ultrasound 09/10/2023 9:32 AM EDT Narrative 09/10/2023 6:58 PM EDT Right: Limited visualization of veins in the calf due to edema. Non-visualized, absent or surgically harvested Great saphenous superficial vein in the thigh. Remaining visualized deep venous segments are compressible with spontaneous phasic spectral Doppler waveforms. Superficial veins are compressible. Left: Limited visualization of veins in the calf due to edema. Non-visualized, absent or surgically harvested Great saphenous superficial vein in the thigh. Remaining visualized deep venous segments are compressible with spontaneous phasic spectral Doppler waveforms. Superficial veins are compressible. Conclusions: BILATERAL: NO EVIDENCE of deep or superficial vein thrombosis of the lower extremities. Procedure Note Manuel Valdez MD - 09/10/2023 Right: Limited visualization of veins in the calf due to edema.Non-visualized, absent or surgically harvested Great saphenous superficialvein in the thigh. Remaining visualized deep venous segments arecompressible with spontaneous phasic spectral Doppler waveforms. Superficial veins are compressible. Left: Limited visualization of veins in the calf due to edema.Non-visualized, absent or surgically harvested Great saphenous superficialvein in the thigh. Remaining visualized deep venous segments arecompressible with spontaneous phasic spectral Doppler waveforms. Superficial veins are compressible. Conclusions: BILATERAL: NO EVIDENCE of deep or superficial veinthrombosis of the lower extremities. Michael Steiner DO CV VASCULAR ORDERABLES Final Res ult * MR thoracic spine without contrast (09/10/2023 9:02 AM EDT) Anatomical Region Laterality Modality T-spine, Spine, Spine Covera N/A Mag netic Resonance 09/11/2023 1:36 PM EDT Narrative 09/11/2023 1:40 PM EDT MRI thoracic spine History: Compression fracture of T6. Back pain. Follow-up. Technique: Multiplanar multisequence imaging without contrast of the thoracic spine was obtained. COMPARISON: 03/31/2017 and 08/28/2023. Findings: The thoracic spinal cord has a normal signal appearance and caliber size. No cord expansion is appreciated. Position of the conus medullaris is normal. Abnormal marrow signal is appreciated in the T6 vertebral body. There is 30% loss in height. Findings are compatible with known compression fracture. I do not see fragmentation or a fragment retropulsed into the spinal canal. Small amount of edema along the inferior endplate of T5 is appreciated. This raises concern for developing additional compression fracture. Anterior wedging and severe loss in height of the T8 vertebral body is appreciated no concerning residual edema is noted in T8. The disc spaces are desiccated. No disc herniation or concerning central canal stenosis is noted. The epidural space is normal. No elevation of the posterior longitudinal ligament. . Impression: 1. T6 osteoporotic compression fracture is confirmed. In addition there is subtle linear edema paralleling the inferior endplate of T5. Continued follow-up is requested. Consider consultation for kyphoplasty/vertebroplasty. Finalized by Brittnee Osorio MD on 09/11/2023 1:40 PM Procedure Note Brittnee Osorio MD - 09/11/2023 MRI thoracic spine History: Compression fracture of T6. Back pain. Follow-up. Technique: Multiplanar multisequence imaging without contrast of thethoracic spine was obtained. COMPARISON: 03/31/2017 and 08/28/2023. Findings: The thoracic spinal cord has a normal signal appearance and caliber size.No cord expansion is appreciated. Position of the conus medullaris isnormal. Abnormal marrow signal is appreciated in the T6 vertebral body. There is30% loss in height. Findings are compatible with known compressionfracture. I do not see fragmentation or a fragment retropulsed into thespinal canal. Small amount of edema along the inferior endplate of T5 is appreciated.This raises concern for developing additional compression fracture.Anterior wedging and severe loss in height of the T8 vertebral body isappreciated no concerning residual edema is noted in T8. The disc spaces are desiccated. No disc herniation or concerning centralcanal stenosis is noted. The epidural space is normal. No elevation of the posterior longitudinalligament. . Impression: 1. T6 osteoporotic compression fracture is confirmed. In addition thereis subtle linear edema paralleling the inferior endplate of T5. Continuedfollow-up is requested. Consider consultation forkyphoplasty/vertebroplasty. Finalized by Brittnee Osorio MD on 09/11/2023 1:40 PM Michael Steiner DO IMG MRI ORDERABLES Final Result documented in this encounter Visit Diagnoses Diagnosis Closed wedge compression fracture of T6 vertebra with routine healing- Primary Acute pulmonary embolism without acute cor pulmonale, unspecified pulmonary embolism type ([facility]-HCC) Closed wedge compression fracture of T6 vertebra with routine healing Acute pulmonary embolism without acute cor pulmonale, unspecified pulmonary embolism type ([facility]-HCC) Cervicogenic headache Headache documented in this encounter Additional Health Concerns Infection Onset Date Last Indicated Resolved Time COVID-19 Rule-Out 12/17/2023 12/17/2023 12/17/2023 1:50 PM EDT Assessment Noted Time PHQ-9 Depression Total Score: 0 08/10/19 1:05 PM EDT documented as of this encounter Care Teams Violin Restorer Relationship Specialty Start Date End Date Michael Steiner DO [address] [place] [address] PCP - General Internal Medicine 12/17/23 documented as of this encounter
--- OUTSIDE RECORDS SUMMARY | 2024-10-27 08:27 | XMS_ITS | Encounter Summary ---
Author Organization [employer] tem Address [id number] [address] [place] [address] Care Team Providers Care Home Visitor Name Role Phone Michael Steiner DO Primary Care Provider [phone] Reason for Visit * Reason Onset Date Comments PT Discharge 01/10/2020 Encounter Details Date Type Department Care Team (Late st Contact Info) Description 01/10/2020 Telephone [facility] [address] [place] [address] Jamie Rodriguez DO [address] [place] [address], [address] [place], [place] [id number] PT Discharge Social History Tobacco Use Types Packs/Day Years Used Date Smoking Tobacco: Every Day Cigarettes Smokeless Tobacco: Current Chew Alcohol Use Standard Drinks/Week Comments No 0 [...] week 01/09/2020 How often do you attend mormonism or advent serv ices? Never 01/09/2020 Do [...] at all 01/09/2020 PHQ-2 Answer Date Recorded PHQ-2 Score 0 01/09/2020 PRAPARE - Transportation Answer Date Re corded [...] Recorded Do you need help finding a [email or web address] career center and/or a training program? No 01/09/2020 Comments No Sex and Gender Information Value [...] have Coronavirus / COVID-19? No / Unsure 01/09/2020 2:50 AM EDT documented as of this encounter Miscellaneous Notes * Telephone Encounter - Jessica Mejia - 01/10/2020 9:01 AM EDT Please reach out to patient to schedule follow up appointment in your office. Thank you. * Telephone Encounter - Nelsy Casey - 01/10/2020 9:01 AM EDT STILL ADMITTED * Telephone Encounter - Veena Harrison - 01/10/2020 9:01 AM EDT Per message from the 01/09/2020 procedure list: per [facility]. Pt dcd from [facility] s/p CATH. Needs 7-10 day f/u. Orders to scheduling. car documented in this encounter Plan of Treatment Upcoming Encounters Date Type Department Care Team (Late st Contact Info) Description 10/27/2024 4:15 PM EDT Office Visit [facility] Internal Medicine - Family Medicine [address] [place] [address] Michael Steiner, DO [address] [place] [address] 11/01/2024 4:[address] [facility] - Total Rehab [address] [place] [address] Cervicogenic headache 11/07/2024 2:30 PM EDT Office Visit [facility] Internal Medicine - Family Medicine [address] [place] [address] Michael Steiner, DO [address] [place] [address] 11/28/2024 2:00 PM EDT Office Visit [facility] - Heart Failure Clinic [address] [place] [address] Inez Cook, MAINTENANCE TECHNICIAN 3RD SHIFT-TIMBER SUPERVISOR [address] [place] [address] documented as of this encounter [...] Noted Time PHQ-9 Depression Total Score: 0 01/09/20 11:18 AM EDT documented as of this encounter Care Teams Home Visitor Relationship Specialty Start Date End Date Michael Steiner DO [address] [place] [address] PCP - General Internal Medicine 12/17/23 documented as of this encounter
--- OUTSIDE RECORDS SUMMARY | 2024-10-27 08:27 | XMS_ITS | Encounter Summary ---
Author Organization [employer] tem Address [id number] [address] [place] [address] Care Team Providers Care Precision Printing Worker Name Role Phone Michael Steiner DO Primary Care Provider [phone] Encounter Details Date Type Department Care Team (Late st Contact Info) Description 10/27/2023 Orders Only [facility] Internal Medicine - Family Medicine [address] [place] [address] Michael Steiner DO [address] [place] [address] Closed wedge compression fracture of T6 vertebra with routine healing Social History Tobacco Use Types Packs/Day Years Used Date Smoking Tobacco: Former Cigarettes 1 40 0 09/1981 - 09/2021 Smokeless Tobacco: Never Comments:5-6 cigerettes a da y Alcohol Use Standard Drinks/Week Comments Not Currently 0 (1 standard drink = 0.6 oz pur e alcohol) last use 15 years ago [facility] Utilities Answer Date Recorded In the past 12 months has [employer], gas, oil, or water company threatened to [...] any clubs o r organizations such as mandaen groups, unions, fraternal or athletic groups, or [...] Answer Date Recorded Total Score 0 09/30/2023 [facility] - Occupational [...] Internal Medicine - Family Medicine [address] [place] [address] Michael Steiner, DO [address] [place] [address] 11/01/2024 4:30 PM EDT [facility]ointment [facility] [address] [place] [address] Cervicogenic headache 11/07/2024 2:30 PM EDT [facility] Medicine [address] [place] [address] Michael Steiner, DO [address] [place] [address] 11/28/2024 2:00 PM EDT Office Visit [facility] - Heart Failure Clinic [address] [place] [address] Inez Coko, FUNDRAISING DIRECTOR-RAW MILL OPERATOR [address] [place] [address] documented as of this encounter Goals Goal Patient Goal Type Associated Problems Recent Progress Patient-Stated? Author home General Yes Jimena Snider LSW Note: Evaluation of progress towards goal: under assessment documented as of this encounter Procedures Procedure Name Priority Date/Time Associated Diagnosis Comments AMB REFERRAL TO ORTHOPEDIC SURGERY Routine 10/27/2023 5:14 PM EDT Closed wedge compression fracture of T6 vertebra with routine healing documented in this encounter Results * Ambulatory referral to Orthopedic Surgery ([facility]) (10/27/2023 5:14 PM EDT) Michael Steiner DO OUTPATIENT REFERRAL ORDERABLES F inal Result MANUALLY TRANSCRIBED RESULTS documented in this encounter Visit Diagnoses Diagnosis Closed wedge compression fracture of T6 vertebra with routine healing Cervicogenic headache Headache documented in this encounter Additional Health Concerns Infection Onset Date Last Indicated Resolved Time COVID-19 Rule-Out 12/17/2023 12/17/2023 12/17/2023 1:50 PM EDT Assessment Noted Time PHQ-9 Depression Total Score: 0 09/30/19 1:38 PM EDT documented as of this encounter Care Teams Precision Printing Worker Relationship Specialty Start Date End Date Michael Steiner DO [address] [place] [address] PCP - General Internal Medicine 12/17/23 documented as of this encounter
--- OUTSIDE RECORDS SUMMARY | 2024-10-27 08:27 | XMS_ITS | Encounter Summary ---
Author Organization [employer] tem Address [id number] [address] [place] [address] Care Team Providers Care Reporting Process Consultant Name Role Phone Michael Steiner DO Primary Care Provider [phone] Encounter Details Date Type Department Care Team (Late st Contact Info) Description 09/28/2023 Telephone [facility] - Family Medicine [address] [place] [address] PrestonMonica lo, EXHIBIT SPECIALIST Social History Tobacco Use Types Packs/Day Years Used Date Smoking Tobacco: Former Cigarettes 1 40 0 09/1981 - 09/2021 Smokeless Tobacco: Never Comments:5-6 cigerettes a da y Alcohol Use Standard Drinks/Week Comments Not Currently 0 (1 standard drink = 0.6 oz pur e alcohol) last use 15 years ago [facility] Utilities Answer Date Recorded In the past 12 months has [employer], gas, oil, or water [employer] threatened to shut off services in your [...] week 07/25/2023 How often do you attend [facility] or jainism services? More than 4 times per year 07/25/2023 Do you belong to any clubs o r organizations such as buddhism groups, unions, fraternal or athletic groups, or [...] Answer Date Recorded Total Score 0 09/30/2023 [facility] - Occupational [...] Recorded Do you need help finding a [facility] career center and/or a training program? No 07/25/2023 Hunger Screening Answer Date Recorded Within the past 12 months we worried whether our food would run out before we got money to buy more. Never True 09/30/2023 Within the past 12 months th e food we bought just didn't last and we didn't have money to get more. Never True 09/30/2023 Purpose - Life Answer Date Recorded I [...] Telephone Encounter - Monica Johnston CMA - 09/28/2023 5:07 PM EDT Pt called wondering if you had sent an order for incontance pads ? Through [employer] * Telephone Encounter - Michael Steiner DO - 09/28/2023 5:07 PM EDT Message noted. No, I did not know I was supposed to. * Telephone Encounter - Monica Johnston CMA - 09/28/2023 5:07 PM EDT I called pt she said passport or [employer] was suppose to send a request over , she stated she would call them and have them fax over the information you need documented in this encounter Plan of Treatment Upcoming Encounters Date Type Department Care Team (Late st Contact Info) Description 10/27/2024 4:15 PM EDT Office Visit [facility] Medicine - Family Medicine [address] [place] [address] Michael Steiner, [address] [place] [address] 11/01/2024 4:30 PM EDT Appointment [facility] [address] [place] [address] Cervicogenic headache 11/07/2024 2:30 PM EDT Office Visit [facility] Internal Medicine - Family Medicine [address] [place] [address] Michael Steiner, DO [address] [place] [address] 11/28/2024 2:00 PM EDT Office Visit [facility] - Heart Failure Clinic [address] [place] [address] Inez Cook, BROACHING MACHINE OPERATOR-CONTRACT RECRUITER [address] [place] [address] documented as of this encounter [...] Noted Time PHQ-9 Depression Total Score: 0 09/24/19 24 11:09 AM EDT documented as of this encounter Care Teams Reporting Process Consultant Relationship Specialty Start Date End Date Michael Steiner DO [address] [place] [address] PCP - General Internal Medicine 12/17/23 documented as of this encounter
--- OUTSIDE RECORDS SUMMARY | 2024-10-27 08:27 | XMS_ITS | Encounter Summary ---
Author Organization [employer] tem Address [id number] [address] [place] [address] Care Team Providers Care Enroller Name Role Phone Michael Steiner DO Primary Care Provider [phone] Encounter Details Date Type Department Care Team (Late st Contact Info) Description 08/31/2023 [facility] [address] [place] [address] PrestonMonica lo, BALLISTIC TECHNICIAN Social History Tobacco Use Types Packs/Day Years Used Date Smoking Tobacco: Former Cigarettes 1 40 0 09/1981 - 09/2021 Smokeless Tobacco: Former Chew Comments:5-6 cigerettes a da y Alcohol Use Standard Drinks/Week Comments Not Currently 0 (1 standard drink = 0.6 oz pur e alcohol) last use 15 years ago [facility] Utilities Answer Date Recorded In the past 12 months has [employer], gas, oil, or water [employer] threatened to shut off services in [...] week 07/25/2023 How often do you attend [facility] or cheondoism services? More than 4 times per year 07/25/2023 Do you belong to any clubs o r organizations such as denominational groups, unions, fraternal or athletic groups, or [...] Answer Date Recorded Total Score 0 08/10/2023 [facility] Occup[facility] ional [facility] - Occupational [...] Recorded Do you need help finding a [facility] [employer] career center and/or a training program? No [...] Telephone Encounter - Monica Johnston CMA - 08/31/2023 8:50 AM EDT Pt's friend that takes care of her called stated pt was in the hospital over the weekend and was released , Dr Arthur wanted and ultra sound done on her leg and lungs or ct she wasn't sure which onebut was released Thursday before it was done , she wanted to know if these still needed to be done also they told her to do a follow up with you right away , she does have an appt the do you want to see her before the 15 or just wait ? * Telephone Encounter - Michael Steiner DO - 08/31/2023 8:50 AM EDT Message noted. She needs an MRI of the thoracic spine and a venous duplex scan of the legs. The orders for these test are in her chart. Please give her the number to call and schedule these tests, which they should do quickly. She should have them done prior to the schedule appt on 09/08, which she should keep * Telephone Encounter - Monica Johnston CMA - 08/31/2023 8:50 AM EDT Called pt's friend read your note she said she will do that thank you so much documented in this encounter Plan of Treatment Upcoming Encounters Date Type Department Care Team (Late st Contact Info) Description 10/27/2024 4:15 PM EDT Office Visit [facility] Internal Medicine - Family Medicine [address] [place] [address] Michael Steiner, DO [address] [facility] [place] [address] 11/01/2024 4:30 PM EDT Appointment [facility] - Total Rehab [address] [place] [address] Cervicogenic headache 11/07/2024 2:30 PM EDT Office Visit [facility] Internal Medicine - Family Medicine [address] [place] [address] Michael Steiner, DO [address] [place] [address] 11/28/2024 2:00 PM EDT Office Visit [facility] - Heart Failure Clinic [address] [place] [address] Inez Cook, DIRECTOR [employer]SEMBLER [employer]CRAFT POWER [employer]ANT [address] [place] [address] documented as of this [...] documented as of this encounter Care Teams Enroller Relationship Specialty Start Date End Date Michael Steiner DO [address] [place] [id number] PCP - General Internal Medicine 12/17/23 documented as of this encounter
--- OUTSIDE RECORDS SUMMARY | 2024-10-27 08:27 | XMS_ITS | Encounter Summary ---
Author Organization [employer] s tem Address [facility]-[id number] [address] [place] [address] Care Team Providers Care Registration Coordinator Name Role Phone Michael Steiner DO Primary Care Provider [phone] Encounter Details Date Type Department Care Team (Late st Contact Info) Description 10/24/2024 Telephone [facility] Internal Medicine - Family Medicine [address] [place] [phone] Megan Talley, ELIAN Social History Tobacco Use Types Packs/Day Years Used Date Smoking Tobacco: Former Cigarettes 1 40 0 09/1981 - 09/2021 Smokeless Tobacco: Never Comments:5-6 cigerettes a da y Alcohol Use Standard Drinks/Week Comments Not Currently 0 (1 standard drink = 0.6 oz pur e alcohol) last use 15 years ago [facility] Utilities Answer Date Recorded In the past 12 months has [employer], gas, oil, or water [employer] threatened to shut off services in your [...] week 07/25/2023 How often do you attend [facility] or oriental orthodox services? More than 4 times per year 07/25/2023 Do you belong to any clubs o r organizations such as catholic groups, unions, fraternal or athletic groups, or [...] Answer Date Recorded Total Score 15 10/07/2024 [facility] - [...] encounter Miscellaneous Notes * Telephone Encounter - Megan Talley CMA - 10/24/2024 5:09 PM EDT Pt's friend called in stating her swelling spiked up over the weekend and was asking if she could get some Furosemide called in. Pt's friend did not state where the swelling is existing. Thank you. Please advise. documented in this encounter Plan of Treatment Upcoming Encounters Date Type Department Care Team (Late st Contact Info) Description 10/27/2024 4:15 PM EDT Office Visit [facility] Internal Medicine - Family Medicine [address] [place] [address] Michael Steiner, [address] [place] [address] 11/01/2024 4:30 PM EDT Appointment [facility] [address] [place] [phone] Cervicogenic headache 11/07/2024 2:30 PM EDT Office Visit [facility] Internal Medicine - Family Medicine [address] [place] [address] Michael Steiner DO [address] [facility] [place] [address] 11/28/2024 2:00 PM EDT Office Visit [facility] - Heart Failure Clinic [address] [place] [address] Inez Cook, NOTE TAKER-MASTER DATA ANALYST [address] [place] [phone] documented as of this encounter Goals Goal Patient Goal Type Associated Problems Recent Progress Patient-Stated? Author home General Yes Jimena Snider LSW Note: Evaluation of progress towards goal: under assessment documented as of this encounter Visit Diagnoses Not on filedocumented in this encounter Additional Health Concerns Assessment Noted Time PHQ-9 Depression Total Score: 15 025 11:42 AM EDT documented as of this encounter Care Teams Registration Coordinator Relationship Specialty Start Date End Date Michael Steiner DO [address] [facility] [place] [address] PCP - General Internal Medicine 12/17/23 documented as of this encounter
--- OUTSIDE RECORDS SUMMARY | 2024-10-27 08:27 | XMS_ITS | Encounter Summary ---
Author Organization [facility] Address [facility]-[id number] [address] [place] [address] Care Team Providers Care Faith Healer Name Role Phone JoanMichael gonsalez Janae CABRERA Primary Care Provider [phone] Reason for Visit * Reason Comments Med Refill Encounter Details Date Type Department Care Team (Late st Contact Info) Description 11/27/2021 Refill [facility] Cardiology [address] [place] [phone] Tristen Maldonado MD [address] [place] [address] Med Refill Social History Tobacco Use Types Packs/Day Years [...] How often do you attend shinto or presybeterian serv ices? Never 01/09/2020 Do you belong [...] Recorded Do you need help finding a [employer] career center and/or a training program? No [...] have Coronavirus / COVID-19? No / Unsure 11/18/2021 2:28 PM EDT documented as of this encounter Plan of Treatment Upcoming Encounters Date Type Department Care Team (Late st Contact Info) Description 10/27/2024 4:15 PM EDT Office Visit [facility] Internal Medicine - Family Medicine [address] [facility] [phone] Michael Steiner DO [address] [place] [address] 11/01/2024 4:30 PM EDT Appointment [facility] [place] - Total Rehab [address] [place] [phone] Cervicogenic headache 11/07/2024 2:30 PM EDT Office Visit [facility] Internal Medicine - Family Medicine [address] [place] [phone] Michael Steiner DO [address] [place] [address] 11/28/2024 2:00 PM EDT Office Visit [facility] - [facility] Failure Clinic [address] [place] [address] Inez Cook, SPANISH LINGUIST-CORING MACHINE OPERATOR [address] [place] [place] [phone] documented as of this encounter Visit Diagnoses [...] documented as of this encounter Care Teams Faith Healer Relationship Specialty Start Date End Date Michael Steiner DO [address] [place] [address] PCP - General Internal Medicine 12/17/23 documented as of this encounter
--- OUTSIDE RECORDS SUMMARY | 2024-10-27 08:27 | XMS_ITS | Encounter Summary ---
Author Organization [employer] Address [id number] [address] [place] [address] Care Team Providers Care Vault Custodian Name Role Phone Michael Steiner DO Primary Care Provider Reason for Referral * Misc (Routine) - Closed Specialty Diagnoses / Procedures Referred By Contac t Referred To Contact Diagnoses BONY (obstructive sleep apnea) Procedures [facility] Diagnostic Grupo Nguyen MD [address] [address] Phone: tel: fax: Referral ID Status Reason Start Date Expiration Date Visits Re quested Visits Authorized [id number] Closed 11/04/2021 11/04/2022 1 1 * Diagnostic Imaging (Routine) - Closed Specialty Diagnoses / Procedures Referred By Contac t Referred To Contact Radiology Diagnoses Pulmonary nodule Procedures CT chest without contrast Grupo Nguyen MD [address] [address] Phone: tel: fax: Referral ID Status Reason Start Date Expiration Date Visits Re quested Visits Authorized [id number] Closed 11/04/2021 11/04/2022 1 1 Encounter Details Date Type Department Care Team (Late st Contact Info) Description 11/04/2021 Telephone [facility] Pulmonary/Sleep Medicine [address] [address] Juli Mixon, VICTOR M Social History Tobacco Use Types [...] week 01/09/2020 How often do you attend mu-ism or sikhism serv ices? Never 01/09/2020 Do you belong to any clubs o r organizations such as mu-ism groups, unions, fraternal or athletic groups, or [...] have Coronavirus / COVID-19? No / Unsure 11/04/2021 11:31 AM EDT documented as of this encounter Miscellaneous Notes * Telephone Encounter - Juli Mixon RN - 11/04/2021 1:[address] 4 months order placed Recall placed [facility] message sent PSG ordered * Telephone Encounter - Juli Mixon RN - 11/04/2021 1:27 PM EDT ----- Message from Evie Weller RN sent at 11/06/2021 7:27 AM EDT ----- Regarding: Tumor board recommendations Repeat images in 3 months. documented in this encounter Plan of Treatment Upcoming Encounters Date Type Department Care Team (Late st Contact Info) Description 10/27/2024 4:15 PM EDT Office Visit [facility] Internal Medicine - Family Medicine [address] [place] [phone] Michael Steiner DO [address] [place] [address] 11/01/2024 4:30 PM EDT Appointment [facility] [place] - Total Rehab [address] [place] [phone] Cervicogenic headache 11/07/2024 2:30 PM EDT Office Visit [facility] Internal Medicine - Family Medicine [address] [place] [phone] Michael Steiner DO [address] [place] [address] 11/28/2024 2:00 PM EDT Office Visit [facility] - Heart Failure Clinic [address] [facility] [place] [address] Inez Cook, HEALTH EVALUATOR-DOCK GRADER [address] [place] [phone] documented as of this encounter Results * PSG Diagnostic (07/17/2022 7:36 PM EDT) 07/17/2022 7:36 PM EDT Narrative [facility] - 07/18/2022 5:45 PM EDT INTERPRETED us Grupo Nguyen MD [facility] ORDERABLES Final Result [facility] * CT chest without contrast (02/20/2022 11:47 AM EDT) Anatomical Region Laterality Modality Lung, Chest, Body Covera N/A Compute d Tomography 02/23/2022 10:2 1 AM EDT Narrative 02/23/2022 10:[address] Chest without contrast History: Pulmonary nodule follow-up Comparison: 10/07/2021 and 11/01/2021 Technique: Axial images through the thorax were obtained followed by sagittal and coronal reconstructed images. Automated exposure control was used. without contrast. Findings: The nodular abnormality inferiorly in the lingula abutting the fissure is again appreciated. Today it measures 11.5 mm. That is a negligible change in size. The shape is slightly more smooth. Therefore continued follow-up imaging is suggested. Consider follow-up imaging in 6 months areas of scarring in both inferior lower lobes is stable. Prior CABG procedure. Sternotomy wires are noted. Atherosclerotic involvement of the coronary arteries is observed. Calcified fat necrosis anterior to portion of the left chest is stable. Hiatal hernia, moderate size remains The lack of IV contrast limits mediastinal assessment. No definite mass is observed. No pericardial effusion is appreciated. The thoracic aorta has a normal size. No destructive osseous process is appreciated . No pericardial effusion. No pleural effusion. Impression: * Parenchymal abnormality in the lingula is slightly more smooth and rounded in shape. Given the slight change continued follow-up imaging is advised, consider repeat CT in [address] scans at this facility use dose modulation, iterative reconstruction, and/or weight based dosing when appropriate to reduce radiation dose to as low as reasonably achievable. Finalized by Brittnee Osorio MD on 02/23/2022 10:28 AM Procedure Note Brittnee Osorio MD - 02/23/2022 CT Chest without contrast History: Pulmonary nodule follow-up Comparison: 10/07/2021 and 11/01/2021 Technique: Axial images through the thorax were obtained followed bysagittal and coronal reconstructed images. Automated exposure control wasused. without contrast. Findings: The nodular abnormality inferiorly in the lingula abutting the fissure isagain appreciated. Today it measures 11.5 mm. That is a negligiblechange in size. The shape is slightly more smooth. Therefore continuedfollow-up imaging is suggested. Consider follow-up imaging in 6 monthsareas of scarring in both inferior lower lobes is stable. Prior CABG procedure.Sternotomy wires are noted. Atherosclerotic involvement of the coronaryarteries is observed. Calcified fat necrosis anterior to portion of theleft chest is stable. Hiatal hernia, moderate size remains The lack of IV contrast limits mediastinal assessment. No definite massis observed. No pericardial effusion is appreciated. The thoracic aortahas a normal size. No destructive osseous process is appreciated . No pericardialeffusion. No pleural effusion. Impression: * Parenchymal abnormality in the lingula is slightly more smooth androunded in shape. Given the slight change continued follow-up imaging isadvised, consider repeat CT in [address] scans at this facility use dose modulation, iterativereconstruction, and/or weight based dosing when appropriate to reduceradiation dose to as low as reasonably achievable. Finalized by Brittnee Osorio MD on 02/23/2022 10:28 AM Grupo Nguyen MD IMG CT ORDERABLES Final Result documented in this encounter Visit Diagnoses Diagnosis Pulmonary nodule- Primary Other diseases of lung, not elsewhere classified BONY (obstructive sleep apnea) Obstructive sleep apnea (adult) (pediatric) Pulmonary nodule Other diseases of lung, not elsewhere classified BONY (obstructive sleep apnea) Obstructive sleep apnea (adult) (pediatric) Cervicogenic headache Headache documented in this encounter [...] documented as of this encounter Care Teams Vault Custodian Relationship Specialty Start Date End Date Michael Steiner DO [address] [place] [address] PCP - General Internal Medicine 12/17/23 documented as of this encounter
--- OUTSIDE RECORDS SUMMARY | 2024-10-27 08:27 | XMS_ITS | Encounter Summary ---
Author Organization [employer] Address [id number] [address] [place] [address] Care Team Providers Care Roller Shop Supervisor Name Role Phone JoanMichael gonsalez Janae CABRERA Primary Care Provider Encounter Details Date Type Department Care Team (Late st Contact Info) Description 09/05/2020 Orders Only [facility] Cardiology [address] [place] [phone] Sharon Beaver RN Edema, unspecified type (Primary Dx) Social History Tobacco Use Types [...] week 01/09/2020 How often do you attend zoroastrian or latter day serv ices? Never 01/09/2020 Do you belong to any clubs o r organizations such as zoroastrian groups, unions, fraternal or athletic groups, or [...] Recorded Do you need help finding a [facility] and/or a training program? No 01/09/2020 [...] have Coronavirus / COVID-19? No / Unsure 09/05/2020 10:01 AM EDT documented as of this encounter Plan of Treatment Upcoming Encounters Date Type Department Care Team (Late st Contact Info) Description 10/27/2024 4:15 PM EDT Office Visit [facility] Internal Medicine - Family Medicine [address] [place] [phone] Michael Steiner, [address] [place] [address] 11/01/2024 4:30 PM EDT Appointment [facility] [place] - Total Rehab [address] [place] [phone] Cervicogenic headache 11/07/2024 2:30 PM EDT Office Visit [facility] Internal Medicine - Family Medicine [address] [place] [address] Michael Steiner DO [address] [place] [address] 11/28/2024 2:00 PM EDT Office Visit [facility] - Heart Failure Clinic [address] [place] [phone] Inez Cook, BOTTLING ATTENDANT-CAR DUMPER OPERATOR HELPER [address] [place] [address] documented as of this encounter Visit Diagnoses Diagnosis Edema, unspecified type- Primary Cervicogenic headache Headache documented in this [...] documented as of this encounter Care Teams Roller Shop Supervisor Relationship Specialty Start Date End Date Michael Steiner DO [address] [place] [address] PCP - General Internal Medicine 12/17/23 documented as of this encounter
--- OUTSIDE RECORDS SUMMARY | 2024-10-27 08:27 | XMS_ITS | Encounter Summary ---
Author Organization [employer] s tem Address [id number] [address] [place] [address] Care Team Providers Care Evaporator Supervisor Name Role Phone Michael Steiner DO Primary Care Provider [phone] Encounter Details Date Type Department Care Team (Late st Contact Info) Description 10/24/2024 Orders Only [facility] Internal Medicine - Family Medicine [address] [place] [address] Michael Steiner DO [address] [place] [address] Venous insufficiency of both lower extremities (Primary Dx) Social History Tobacco Use Types Packs/Day Years Used Date Smoking Tobacco: Former Cigarettes 1 40 0 09/1981 - 09/2021 Smokeless Tobacco: Never Comments:5-6 cigerettes a da y Alcohol Use Standard Drinks/Week Comments Not Currently 0 (1 standard drink = 0.6 oz pur e alcohol) last use 15 years ago [facility] Utilities Answer Date Recorded In the past 12 months has [employer], gas, oil, or water company threatened [...] often do you attend chur ch or restoration services? More than 4 times per year 07/25/2023 Do you belong to any clubs o r organizations such as adventism groups, unions, fraternal or athletic groups, or [...] Answer Date Recorded Total Score 15 10/07/2024 [facility] Occupat ional Health - Occupational [...] Recorded Do you need help finding a [facility] career [facility] and/or a training program? [...] Medicine - Family Medicine [address] [place] [address] Michael Steiner, DO [address] [place] [address] 11/01/2024 4:30 PM EDT Appointment [facility] [address] [place] [phone] Cervicogenic headache 11/07/2024 2:30 PM EDT [facility] [address] [place] [address] Michael Steiner, DO [address] [place] [address] 11/28/2024 2:00 PM EDT Office Visit [facility] - Heart Failure Clinic [address] [place] [address] Inez Cook, GRINDER SET UP OPERATOR THREAD TOOL-DOWEL INSERTING MACHINE OPERATOR [address] [place] [phone] documented as of this encounter Goals Goal Patient Goal Type Associated Problems Recent Progress Patient-Stated? Author home General Yes Jimena Snider LSW Note: Evaluation of progress towards goal: under assessment documented as of this encounter Visit Diagnoses Diagnosis Venous insufficiency of both lower extremities- Primary Cervicogenic headache Headache documented in this encounter Additional Health Concerns Assessment Noted Time PHQ-9 Depression Total Score: 15 025 11:42 AM EDT documented as of this encounter Care Teams Evaporator Supervisor Relationship Specialty Start Date End Date Michael Steiner DO [address] [place] [address] PCP - General Internal Medicine 12/17/23 documented as of this encounter
--- OUTSIDE RECORDS SUMMARY | 2024-10-27 08:27 | XMS_ITS | Encounter Summary ---
Author Organization [facility] [employer] [facility] Address [facility]-[id number] [address] [place] [address] Care Team Providers Care Social Services Director Name Role Phone Michael Steiner DO Primary Care Provider [phone] Encounter Details Date Type Department Care Team (Late st Contact Info) Description 10/07/2023 Telephone [facility] Failure Clinic [address] [place] [phone] Lamar Carlson Social History Tobacco Use Types Packs/Day Years Used Date Smoking Tobacco: Former Cigarettes 1 40 0 09/1981 - 09/2021 Smokeless Tobacco: Never Comments:5-6 cigerettes a da y Alcohol Use Standard Drinks/Week Comments Not Currently 0 (1 standard drink = 0.6 oz pur e alcohol) last use 15 years ago [facility] Utilities Answer Date Recorded In the past 12 months has [employer], gas, oil, or water [employer] threatened to shut off services in your [...] often do you attend chur ch or orthodoxy services? More than 4 times per year [...] Answer Date Recorded Total Score 0 09/30/2023 [facility] of Occupat ional [...] Miscellaneous Notes * Telephone Encounter - Lamar Carlson - 10/07/2023 9:00 AM EDT Called patient to schedule 6 mo ov with [facility] in January. Patients states they will call back to schedule. documented in this encounter Plan of Treatment Upcoming Encounters Date Type Department Care Team (Late st Contact Info) Description 10/27/2024 4:15 PM EDT Office Visit [facility] Internal Medicine - Family Medicine [address] [place] [address] Michael Steiner, [address] [place] [address] 11/01/2024 4:30 PM EDT Appointment [facility] - Total Rehab [address] [place] [phone] Cervicogenic headache 11/07/2024 2:30 PM EDT Office Visit [facility] Medicine - Family Medicine [address] [place] [address] Michael Steiner, [address] [place] [address] 11/28/2024 2:00 PM EDT Office Visit [facility] - Heart Failure Clinic [address] [place] [phone] Inez Cook, FIRE ALARM REPAIRER-BOILING TUB OPERATOR [address] [place] [phone] documented as of this encounter Goals Goal [...] documented as of this encounter Care Teams Social Services Director Relationship Specialty Start Date End Date Michael Steiner DO [address] [place] [address] PCP - General Internal Medicine 12/17/23 documented as of this encounter
--- OUTSIDE RECORDS SUMMARY | 2024-10-27 08:27 | XMS_ITS | Encounter Summary ---
Author Organization [facility] Address [id number] [address] [place] [address] Care Team Providers Care Head Counselor Name Role Phone Michael Steiner DO Primary Care Provider [phone] Reason for Visit * Reason Comments Med Refill Encounter Details Date Type Department Care Team (Late st Contact Info) Description 10/13/2024 Refill [facility] Internal Medicine - Family Medicine [address] [place] [address] Michael Steiner DO [address] [place] [address] Peripheral polyneuropathy Social History Tobacco Use Types Packs/Day Years Used Date Smoking Tobacco: Former Cigarettes 1 40 0 09/1981 - 09/2021 Smokeless Tobacco: Never Comments:5-6 cigerettes a da y Alcohol Use Standard Drinks/Week Comments Not Currently 0 (1 standard drink = 0.6 oz pur e alcohol) last use 15 years ago [facility] Utilities Answer Date Recorded In the past 12 months has [employer], gas, oil, or water company threatened to [...] often do you attend chur ch or episcopalian services? More than 4 times per year 07/25/2023 Do you belong to any clubs o r organizations such as taoist groups, unions, fraternal or athletic groups, or [...] Answer Date Recorded Total Score 15 10/07/2024 [facility] of Occupat ional Health - Occupational Stress [...] Do you need help finding a [facility] career center and/or a training [...] Internal Medicine - Family Medicine [address] [place] [address] Michael Steiner, [address] [place] [address] 11/01/2024 4:30 PM EDT Appointment [facility] Rick Young [place] - Total Rehab [address] [place] [phone] Cervicogenic headache 11/07/2024 2:30 PM EDT [facility] [address] [place] [address] Michael Steinre, DO [address] [place] [address] 11/28/2024 2:00 PM EDT Office Visit [facility] - Heart Failure Clinic [address] [place] [phone] Inez Cook, WELLNESS PROGRAM MANAGER-FLIGHT TEST MECHANIC [address] [place] [phone] documented as of this encounter Goals Goal [...] documented as of this encounter Care Teams Head Counselor Relationship Specialty Start Date End Date Michael Steiner DO [address] [place] [address] PCP - General Internal Medicine 12/17/23 documented as of this encounter
--- OUTSIDE RECORDS SUMMARY | 2024-10-27 08:27 | XMS_ITS | Encounter Summary ---
Author Organization [facility] [employer] s tem Address [id number] [address] [place] [address] Care Team Providers Care Rail Transit Operator Name Role Phone Joansunshine Michael Janae CABRERA Primary Care Provider [phone] Reason for Visit * Reason Comments Med Refill Encounter Details Date Type Department Care Team (Late st Contact Info) Description 03/05/2023 Refill [facility] - Heart Failure Clinic [address] [place] [phone] Tristen Maldonado MD [address] [place] [address] Shortness of breath; Chronic heart failure with preserved ejection fraction ([facility]) Social History Tobacco Use Types Packs/Day [...] week 01/09/2020 How often do you attend christian or holiness serv ices? Never 01/09/2020 Do you belong to any clubs o r organizations such as christian groups, unions, fraternal or athletic groups, or [...] Recorded Do you need help finding a Debt Resolve center and/or a training program? No 01/09/2020 [...] Internal Medicine - Family Medicine [address] [place] [address] Michael Steiner, DO [address] [place] [address] 11/01/2024 4:30 PM EDT Appointment [facility] [place] - [facility] Re[facility] [address] [place] [address] Cervicogenic headache 11/07/2024 2:30 PM EDT Office Visit [facility] Internal Medicine - Family Medicine [address] [place] [address] Michael Steiner DO [address] [place] [address] 11/28/2024 2:00 PM EDT Office Visit [facility] - Heart Failure Clinic [address] [place] [address] Inez Cook, FOX RAISER-COGNOS LEAD [address] [place] [address] documented as of this encounter Visit Diagnoses Diagnosis Shortness of breath Chronic heart failure with preserved ejection fraction [...] documented as of this encounter Care Teams Rail Transit Operator Relationship Specialty Start Date End Date Michael Steiner DO [address] [place] [address] PCP - General Internal Medicine 12/17/23 documented as of this encounter
--- OUTSIDE RECORDS SUMMARY | 2024-10-27 08:27 | XMS_ITS | Encounter Summary ---
Author Organization [facility] Address [id number] [address] [place] [address] Care Team Providers Care Aviation Neuropsychologist Name Role Phone JoanMichael gonsalez Janae CABRERA Primary Care Provider [phone] Reason for Visit * Reason Comments Med Refill Encounter Details Date Type Department Care Team (Late st Contact Info) Description 01/05/2023 Refill [facility] Cardiology [address] [place] [phone] Saurabh Morrison, TELESCOPE REPAIRER-BRIM BUSTER [address] [place] [address] Med Refill Social History Tobacco Use Types [...] week 01/09/2020 How often do you attend sabianist or hindu serv ices? Never 01/09/2020 Do you belong to any clubs o r organizations such as sabianist groups, unions, fraternal or athletic groups, or [...] Recorded Do you need help finding a [employer] center and/or a training program? No 01/09/2020 [...] Internal Medicine - Family Medicine [address] [place] [address] Michael Steiner, [address] [place] [address] 11/01/2024 4:30 PM EDT Appointment [facility] [place] - Total Rehab [address] [place] [phone] Cervicogenic headache 11/07/2024 2:30 PM EDT Office Visit [facility] Internal Medicine - Family Medicine [address] [place] [address] Michael Steiner DO [address] [place] [address] 11/28/2024 2:00 PM EDT [facility] [address] [place] [address] Inez Cook, TELESCOPE REPAIRER-BRIM BUSTER [address] [place] [address] documented as of this encounter Visit Diagnoses Diagnosis Atherosclerosis of [place] coronary artery of [place] heart without angina pectoris- Primary Hx of hyperlipidemia Cervicogenic headache Headache documented in this encounter [...] documented as of this encounter Care Teams Aviation Neuropsychologist Relationship Specialty Start Date End Date Michael Steiner DO [address] [place] [address] PCP - General Internal Medicine 12/17/23 documented as of this encounter
--- OUTSIDE RECORDS SUMMARY | 2024-10-27 08:27 | XMS_ITS | Encounter Summary ---
Author Organization [employer] [facility] tem Address [id number] [address] [place] [address] Care Team Providers Care Pump Oiler Name Role Phone Michael Steiner DO Primary Care Provider [phone] Reason for Referral * Consultation (Routine) - Closed Specialty Diagnoses / Procedures Referred By Rick rahman Referred To Contact Orthopedic Surgery / MED-SURG/ORTHOPEDICS Diagnoses Closed wedge compression fracture of T6 vertebra with routine healing Michael Steiner DO [address] [place] [address] Phone: tel: fax: Jair Huertas DO Phone: tel: fax: Referral ID Status Reason Start Date Expiration Date V isits Requested Visits Authorized [id number] Closed Specialty Services Required 09/14/2023 09/13/2024 4 4 Encounter Details Date Type Department Care Team (Late st Contact Info) Description 09/14/2023 Orders Only [facility] Internal Medicine - Family Medicine [address] [place] [address] Michael Steiner DO [address] [place], [place] [phone] Closed wedge compression fracture of T6 vertebra with routine healing (Primary Dx) Social History Tobacco Use Types Packs/Day Years Used Date Smoking Tobacco: Every Day Cigarettes 1 40 Started: 09/1981; Last attempted to quit: 09/2021 Smokeless Tobacco: Former Chew Comments:5-6 cigerettes a da y Alcohol Use Standard Drinks/Week Comments Not Currently 0 (1 standard drink = 0.6 oz pur e alcohol) last use 15 years ago [facility] Utilities Answer Date Recorded In the past 12 months has th e [employer], gas, oil, or water [employer] threatened to shut off services in your [...] week 07/25/2023 How often do you attend [facility] or buddhist services? More than 4 times per year [...] Answer Date Recorded Total Score 0 09/09/2023 [facility] [place] of Occupat ional Health - Occupational Stress [...] Recorded Do you need help finding a [facility] career center and/or a training program? [...] Medicine - Family Medicine [address] [place] [address] Michael Steiner, DO [address] [place] [address] 11/01/2024 4:30 PM EDT Appointment [facility] [place] - Total Rehab [address] [place] [phone] Cervicogenic headache 11/07/2024 2:30 PM EDT [facility] Internal Medicine - Family Medicine [address] [place] [address] Michael Steiner, DO [address] [place] [address] 11/28/2024 2:00 PM EDT Office Visit [facility] - Heart Failure Clinic [address] [place] [address] Inez Cook, SERVICE PERSON-WIRELESS SALES ASSOCIATE [address] [place] [address] documented as of this encounter Goals Goal Patient Goal Type Associated Problems Recent Progress Patient-Stated? Author home General Yes Jimena Snider LSW Note: Evaluation of progress towards goal: under assessment documented as of this encounter Results * Ambulatory referral to Orthopedic Surgery ([facility]) (10/27/2023 5:14 PM EDT) Michael Steiner DO OUTPATIENT REFERRAL ORDERABLES F inal Result MANUALLY TRANSCRIBED RESULTS documented in this encounter Visit Diagnoses Diagnosis Closed wedge compression fracture of T6 vertebra with routine healing- Primary Cervicogenic headache Headache documented in this encounter Additional Health Concerns Infection Onset Date Last Indicated Resolved Time COVID-19 Rule-Out 12/17/2023 12/17/2023 12/17/2023 1:50 PM EDT Assessment Noted Time PHQ-9 Depression Total Score: 0 05/15/20 24 1:00 PM EDT documented as of this encounter Care Teams Pump Oiler Relationship Specialty Start Date End Date Michael Steiner DO [facility] [place] [address] PCP - General Internal Medicine 12/17/23 documented as of this encounter
--- OUTSIDE RECORDS SUMMARY | 2024-10-27 08:27 | XMS_ITS | Encounter Summary ---
Author Organization [employer] s tem Address [facility] [place] [id number] [address] [place] [address] Care Team Providers Care Rubber Goods Inspector Tester Name Role Phone Michael Steiner DO Primary Care Provider [phone] Encounter Details Date Type Department Care Team (Late st Contact Info) Description 10/01/2023 Telephone [facility] Internal Medicine - Family Medicine [address] [place] [phone] Juan Diego Esquivel CMA Social History Tobacco Use Types Packs/Day Years Used Date Smoking Tobacco: Former Cigarettes 1 40 0 09/1981 - 09/2021 Smokeless Tobacco: Never Comments:5-6 cigerettes a da y Alcohol Use Standard Drinks/Week Comments Not Currently 0 (1 standard drink = 0.6 oz pur e alcohol) last use 15 years ago [facility] Utilities Answer Date Recorded In the past 12 months has [employer], gas, oil, or water [employer] threatened to shut off services in your [...] 07/25/2023 How often do you attend [facility] or anglican services? More than 4 times per year 07/25/2023 Do you belong to any clubs o r organizations such as yarsanism groups, unions, fraternal or athletic groups, or [...] Answer Date Recorded Total Score 0 09/30/2023 [facility] of Occupat ional Health - Occupational [...] Encounter - Juan Diego Esquivel CMA - 10/01/2023 9:17 AM EDT I called pt and gave result note about XRAY. In turn she states she seen You Yesterday and you weregoing to give her Perocet for her pain. Pharmacy is listed and correct. * Telephone Encounter - Michael Steiner DO - 10/01/2023 9:17 AM EDT Message noted. I am not quite sure what this means, but I did refill her prescription for [place] 5-325 b.i.d. times30 days documented in this encounter Plan of Treatment Upcoming Encounters Date Type Department Care Team (Late st Contact Info) Description 10/27/2024 4:15 PM EDT Office Visit [facility] Internal Medicine - Family Medicine [address] [place] [address] Michael Steiner DO [address] [place] [address] 11/01/2024 4:[address] [facility] [address] [facility] [place] [phone] Cervicogenic headache 11/07/2024 2:30 PM EDT Office Visit [facility] Internal Medicine - Family Medicine [address] [place] [address] Michael Steiner DO [address] [facility] [place] [address] 11/28/2024 2:00 PM EDT Office [facility] - Heart Failure Clinic [address] [place] [address] Inez Cook, DOCUMENT REVIEWER-ENGLISH HORN PLAYER [address] [place] [address] documented as of this encounter Goals Goal [...] documented as of this encounter Care Teams Rubber Goods Inspector Tester Relationship Specialty Start Date End Date Michael Steiner DO [address] [place] [address] PCP - General Internal Medicine 12/17/23 documented as of this encounter
--- OUTSIDE RECORDS SUMMARY | 2024-10-27 08:27 | XMS_ITS | Encounter Summary ---
Author Organization [employer] Address [id number] [address] [place] [address] Care Team Providers Care Personal Injury Legal Assistant Name Role Phone Michael Steiner DO Primary Care Provider [phone] Encounter Details Date Type Department Care Team (Late st Contact Info) Description 11/04/2021 [facility]phone [facility]Sleep Medicine [address] [address] Juli Mixon RN Social History [...] week 01/09/2020 How often do you attend synagogue or catholic serv ices? Never 01/09/2020 Do [...] Recorded Do you need help finding a [employer] center and/or a training program? No 01/09/2020 [...] Encounter - Juli Mixon RN - 11/04/2021 1:[address] Nguyen is asking that this pt be seen within a week for Edema weight gain labs ordered today documented in this encounter Plan of Treatment Upcoming Encounters Date Type Department Care Team (Late st Contact Info) Description 10/27/2024 4:15 PM EDT Office Visit [facility] Internal Medicine - Family Medicine [address] [place] [address] Michael Steiner, DO [address] [place] [address] 11/01/2024 4:30 PM EDT Appointment [facility] Rick Biggsna [place] - Total Rehab [address] [place] [address] Cervicogenic headache 11/07/2024 2:30 PM EDT Office [facility] Internal Medicine - Family Medicine [address] [place] [address] Michael Steiner, [address] [place] [address] 11/28/2024 2:00 PM EDT Office Visit [facility] - Heart Failure Clinic [address] [place] [address] Inez Cook, WRITING MANAGER-RETAIL LOAN OFFICER [address] [place] [address] documented as of this encounter Visit Diagnoses [...] documented as of this encounter Care Teams Personal Injury Legal Assistant Relationship Specialty Start Date End Date Michael Steiner DO [address] [place] [address] PCP - General Internal Medicine 12/17/23 documented as of this encounter
--- OUTSIDE RECORDS SUMMARY | 2024-10-27 08:27 | XMS_ITS | Encounter Summary ---
Author Organization [facility] tem Address [id number] [address] [place] [address] Care Team Providers Care Paper Handler Name Role Phone Michael Steiner DO Primary Care Provider [phone] Encounter Details Date Type Department Care Team (Late st Contact Info) Description 11/04/2021 Orders Only [facility] - Radiation Oncology [address] [place] [phone] Renae Gallegos MA NSTEMI (non-ST elevated myocardial infarction) ([facility]) (Primary Dx); ASCVD (arteriosclerotic cardiovascular disease) Social History Tobacco Use Types Packs/Day Years [...] week 01/09/2020 How often do you attend baptist or methodist serv ices? Never 01/09/2020 Do you belong to any clubs o r organizations such as baptist groups, unions, fraternal or athletic groups, or [...] Recorded Do you need help finding a [employer] career center and/or a training program? No [...] Internal Medicine - Family Medicine [address] [facility] [place] [place] [address] Michael Steiner DO [address] [facility] [place] [address] 11/01/2024 4:30 PM EDT [facility] [place] - Total Rehab [address] [place] [phone] Cervicogenic headache 11/07/2024 2:30 PM EDT Office Visit [facility] Internal Medicine - Family Medicine [address] [place] [address] Michael Steiner DO [address] [place] [address] 11/28/2024 2:00 PM EDT Office Visit [facility] - Heart Failure Clinic [address] [place] [phone] Inez Cook, COUNTY HOME DEMONSTRATOR-MANAGER UNDERWRITING [address] [place] [address] documented as of this encounter Results * B-type natriuretic peptide (11/04/2021 12:38 PM EDT) Pathologist [facility] BNP 89 <100.0 pg/mL 11/04/2021 3:51 PM EDT [facility] 11/04/2021 12:3 8 PM EDT 11/04/2021 12:39 PM EDT us Grupo Nguyen MD LAB BLOOD ORDERABLES Final Res ult [facility] [address] [place] [address] * Comprehensive metabolic panel (11/04/2021 12:38 PM EDT) Sodium 141 134 - 146 mmol/L 11/04/2021 2:55 PM EDT [facility] Potassium, Bld 4.1 3.5 - 5.0 mmol/L 11/04/2021 2:55 PM EDT [facility] Chloride 104 98 - 109 mmol/L 11/04/2021 2:55 PM EDT [facility] CO2 28 22 - 32 mmol/L 11/04/2021 2:55 PM EDT [facility] Anion gap 9 5 - 15 mmol/L 11/04/2021 2:55 PM EDT [facility] BUN 12 5 - 23 mg/dL 11/04/2021 2:55 PM EDT [facility] Creatinine 0.84 0.40 - 1.00 mg/dL 11/04/2021 2:55 PM EDT [facility] Comment:METHOD TRACEABLE TO IDMS STANDARD Glucose 94 65 - 99 mg/dL 11/04/2021 2:55 PM EDT [facility] Calcium 9.1 8.5 - 10.5 mg/dL 11/04/2021 2:55 PM EDT [facility] Total Protein 7.0 6.0 - 8.0 g/dL 11/04/2021 2:55 PM EDT [facility] Albumin 4.0 3.2 - 5.3 g/dL 11/04/2021 2:55 PM EDT [facility] Alkaline Phosphatase 56 39 - 130 U/L 11/04/2021 2:55 PM EDT [facility] AST 16 0 - 41 U/L 11/04/2021 2:55 PM EDT [facility] ALT 14 0 - 31 U/L 11/04/2021 2:55 PM EDT [facility] Total bilirubin 0.3 0.3 - 1.2 mg/dL 11/04/2021 2:55 PM EDT [facility] GFR MDRD Non Af Amer >60 >59 ml/min/1.7 3sq.m 11/04/2021 2:55 PM EDT [facility] GFR MDRD Af Amer >60 >59 ml/min/1.7 3sq.m 11/04/2021 2:55 PM EDT [facility] 11/04/2021 12:3 8 PM EDT 11/04/2021 12:39 PM EDT us Grupo Nguyen MD LAB BLOOD ORDERABLES Final Res ult [facility] [address] [place] [address] documented in this encounter Visit Diagnoses Diagnosis NSTEMI (non-ST elevated myocardial infarction) ([facility])- Primary Acute myocardial infarction, subendocardial infarction, episode of care unspecified ASCVD (arteriosclerotic cardiovascular disease) Unspecified cardiovascular disease Cervicogenic headache Headache documented in this encounter [...] documented as of this encounter Care Teams Paper Handler Relationship Specialty Start Date End Date Michael Steiner DO [address] [place] [address] PCP - General Internal Medicine 12/17/23 documented as of this encounter
--- OUTSIDE RECORDS SUMMARY | 2024-10-27 08:27 | XMS_ITS | Encounter Summary ---
Author Organization [facility] Address [facility] [id number] [address] [place] [address] Care Team Providers Care Ethernet Network Architect Name Role Phone Joansunshine Michael Janae CABRERA Primary Care Provider [phone] Reason for Visit * Reason Onset Date Comments Med Refill 08/27/2020 Encounter Details Date Type Department Care Team (Late st Contact Info) Description 08/27/2020 Refill [facility] Card[facility] [address] [place] [address] Mahsa Fam RN Med Refill Social History Tobacco Use Types [...] week 01/09/2020 How often do you attend religious or yazidi serv ices? Never 01/09/2020 Do you belong to any clubs o r organizations such as religious groups, unions, fraternal or athletic groups, or [...] Recorded Do you need help finding a [employer] career center and/or a training program? No [...] have Coronavirus / COVID-19? No / Unsure 08/24/2020 11:31 AM EDT documented as of this encounter Miscellaneous Notes * Telephone Encounter - Mahsa Fam RN - 08/27/2020 12:08 PM EDT Received p/c from [facility] that pt needs refill for atorvastatin 80 mg and Order for Knee high support stockings documented in this encounter Plan of Treatment Upcoming Encounters Date Type Department Care Team (Late st Contact Info) Description 10/27/2024 4:15 PM EDT [facility] - Family Medicine [address] [place] [address] Michael Steiner, DO [address] [place] [address] 11/01/2024 4:30 PM EDT [facility] [address] [place] [address] Cervicogenic headache 11/07/2024 2:30 PM EDT Office Visit [facility] Internal Medicine - Family Medicine [address] [place] [address] Michael Steiner, DO [address] [place] [address] 11/28/2024 2:00 PM EDT Office Visit [facility] - Heart Failure Clinic [address] [place] [address] Inez Cook, SUPERVISORY EXAMINER-SOCIAL WORK LECTURER [address] [place] [address] documented as of this encounter Visit Diagnoses Diagnosis ASCVD (arteriosclerotic cardiovascular disease)- Primary Unspecified cardiovascular disease NSTEMI (non-ST elevated myocardial infarction) ([facility]) Acute myocardial infarction, subendocardial infarction, episode of care unspecified Cervicogenic headache Headache documented in this encounter [...] documented as of this encounter Care Teams Ethernet Network Architect Relationship Specialty Start Date End Date Michael Steiner DO [address] [place] [address] PCP - General Internal Medicine 12/17/23 documented as of this encounter
--- OUTSIDE RECORDS SUMMARY | 2024-10-27 08:28 | XMS_ITS | Encounter Summary ---
Author Organization [employer] Address [id number] [address] [place] [address] Care Team Providers Care Boat Rigger Name Role Phone Michael Steiner DO Primary Care Provider [phone] Encounter Details Date Type Department Care Team (Late st Contact Info) Description 02/06/[address] [facility] [address] [place] [phone] Ching Gay RN Social History Tobacco Use Types Packs/Day [...] week 01/09/2020 How often do you attend temple or oriental orthodox serv ices? Never 01/09/2020 Do you belong to any clubs o r organizations such as temple groups, unions, fraternal or athletic groups, or [...] Recorded Do you need help finding a [employer] career center and/or a training program? No [...] have Coronavirus / COVID-19? No / Unsure 02/06/2021 12:58 PM EDT documented as of this encounter Miscellaneous Notes * Telephone Encounter - Ching Gay RN - 02/06/2021 8:45 AM EDT Pt called and states was taking Remeron prior to bypass surgery. She said they took her off after surgery. She is now wanting to go back on Remeron she is asking if this is ok and if it interferes with any of her cardiac meds. thx slm * Telephone Encounter - Risa Summers MD - 02/06/2021 8:45 AM EDT I am not sure who took her off the Remeron. She can follow-up with her PCP if she should still be on the Remeron. Otherwise, if her PCP recommends Remeron I see no contraindication from our standpoint at this point * Telephone Encounter - Ching Gay RN - 02/06/2021 8:45 AM EDT Called pt left message on answering machine to call back. slm * Telephone Encounter - Ching Gay RN - 02/06/2021 8:45 AM EDT Pt calls back and dicussed F/U with PCP regarding restarting Remeron. slm documented in this encounter Plan of Treatment Upcoming Encounters Date Type Department Care Team (Late st Contact Info) Description 10/27/2024 4:15 PM EDT Office Visit [facility] Internal Medicine - Family Medicine [address] [place] [address] Michael Steiner, [address] [place] [address] 11/01/2024 4:30 PM EDT Appointment [facility] - Total Rehab [address] [place] [address] Cervicogenic headache 11/07/2024 2:30 PM EDT Office Visit [facility] Internal Medicine - Family Medicine [address] [place] [address] Michael Steiner, [address] [place] [address] 11/28/2024 2:00 PM EDT Office Visit [facility] - Heart Failure Clinic [address] [place] [phone] Inez Cook, CLAM SORTER-NONDESTRUCTIVE TESTER [address] [place] [address] documented as of this encounter Visit Diagnoses [...] documented as of this encounter Care Teams Boat Rigger Relationship Specialty Start Date End Date Michael Steiner DO [address] [place] [address] PCP - General Internal Medicine 12/17/23 documented as of this encounter
--- OUTSIDE RECORDS SUMMARY | 2024-10-27 08:28 | XMS_ITS | Encounter Summary ---
Author Organization [employer] s tem Address [facility]-[id number] [address] [place] [address] Care Team Providers Care Sales Recruiting Coordinator Name Role Phone Michael Steiner DO Primary Care Provider [phone] Encounter Details Date Type Department Care Team (Late st Contact Info) Description 07/08/2024 Orders Only [facility] Internal Medicine - Family Medicine [address] [place] [address] Michael Steiner DO [address] [place] [address] Atherosclerotic heart disease of [place] coronary artery with other forms of angina pectoris ([facility]) (Primary Dx) Social History Tobacco Use Types Packs/Day Years Used Date Smoking Tobacco: Former Cigarettes 1 40 0 09/1981 - 09/2021 Smokeless Tobacco: Never Comments:5-6 cigerettes a da y Alcohol Use Standard Drinks/Week Comments Not Currently 0 (1 standard drink = 0.6 oz pur e alcohol) last use 15 years ago [facility] Utilities Answer Date Recorded In the past 12 months has e [employer], gas, oil, or water company threatened to [...] How often do you attend chur or rastafarian services? More than 4 times per year 07/25/2023 Do you belong to any clubs o r organizations such as protestant groups, unions, fraternal or athletic groups, or [...] PHQ-2 Answer Date Recorded Total Score 0 07/07/2024 [facility] - Occupational [...] Recorded Do you need help finding a [facility] career center and/or a training program? No 07/25/2023 Hunger Screening Answer Date Recorded Within the past 12 months we worried whether our food would run out before we got money to buy more. Never True 07/07/2024 Within the past 12 months th e food we bought just didn't last and we didn't have money to get more. Never True 07/07/2024 Purpose - Life Answer Date Recorded I [...] Internal Medicine - Family Medicine [address] [place] [address] Michael Stenier DO [address] [place] [address] 11/01/2024 4:30 PM EDT Appointment [facility] [place] - [facility] [address] [place] [address] Cervicogenic headache 11/07/2024 2:30 PM EDT Office Visit [facility] Internal Medicine - Family Medicine [address] [place] [address] Michael Steiner, [address] [place] [address] 11/28/2024 2:00 PM EDT Office Visit [facility] - [facility] Failure Clinic [address] [place] [address] Inez Cook, HIGHWAY LANDSCAPE ARCHITECT-SILK TOP HAT BODY MAKER [address] [place] [address] documented as of this encounter Goals Goal Patient Goal Type Associated Problems Recent Progress Patient-Stated? Author home General Yes Jimena Snider LSW Note: Evaluation of progress towards goal: under assessment documented as of this encounter Visit Diagnoses Diagnosis Atherosclerotic heart disease of [place] coronary artery with other forms of angina pectoris- Primary Cervicogenic headache Headache documented in this encounter Additional Health Concerns Assessment Noted Time PHQ-9 Depression Total Score: 0 07/08/19 25 1:08 PM EDT documented as of this encounter Care Teams Sales Recruiting Coordinator Relationship Specialty Start Date End Date Michael Steiner DO [address] [place] [address] PCP - General Internal Medicine 12/17/23 documented as of this encounter
--- OUTSIDE RECORDS SUMMARY | 2024-10-27 08:28 | XMS_ITS | Encounter Summary ---
Author Organization [id number] [address] [place] [address] Care Team Providers Care Pcas Name Role Phone Michael Steiner DO Primary Care Provider [phone] Encounter Details Date Type Department Care Team (Late st Contact Info) Description 09/04/2022 [facility] [address] [facility] [address] [place] [address] Cynthia Buchanan, REPORTS DEVELOPER-RADIO DISC JOCKEY [address] [place], [place] [id number] Social History Tobacco Use Types Packs/Day Years [...] week 01/09/2020 How often do you attend voodoo or yazdanism serv ices? Never 01/09/2020 Do you belong to any clubs o r organizations such as voodoo groups, unions, fraternal or athletic groups, or [...] Recorded Do you need help finding a [employer] center and/or a training program? No 01/09/2020 [...] Description 10/27/2024 4:15 PM EDT [facility] [address] [place] [address] Michael Steiner, [address] [place] [address] 11/01/2024 4:30 PM EDT Appointment [facility] Rick Young [place] - Total Rehab [address] [place] [phone] Cervicogenic headache 11/07/2024 2:30 PM EDT [facility] [address] [place] [address] Michael Steiner DO [address] [place] [address] 11/28/2024 2:00 PM EDT [facility] [address] [place] [address] Inez Cook, REPORTS DEVELOPER-RADIO DISC JOCKEY [address] [place] [address] documented as of this encounter Visit Diagnoses [...] documented as of this encounter Care Teams Pcas Relationship Specialty Start Date End Date Michael Steiner DO [address] [facility] [place] [address] PCP - General Internal Medicine 12/17/23 documented as of this encounter
--- OUTSIDE RECORDS SUMMARY | 2024-10-27 08:28 | XMS_ITS | Encounter Summary ---
Author Organization [employer] s tem Address [id number] [address] [place] [address] Care Team Providers Care Gluer Machine Setup Operator Name Role Phone Michael Steiner DO Primary Care Provider [phone] Encounter Details Date Type Department Care Team (Late st Contact Info) Description 08/11/2023 [facility] [address] [phone] Juan Diego Esquivel CMA Social History Tobacco Use Types Packs/Day Years Used Date Smoking Tobacco: Former Cigarettes 1 40 0 09/1981 - 09/2021 Smokeless Tobacco: Former Chew Comments:5-6 cigerettes a da y Alcohol Use Standard Drinks/Week Comments Not Currently 0 (1 standard drink = 0.6 oz pur e alcohol) last use 15 years ago [facility] Utilities Answer Date Recorded In the past 12 months has [employer], gas, oil, or water [employer] threatened to shut off services in your [...] week 07/25/2023 How often do you attend [facility] or congregation services? More than 4 times per year 07/25/2023 Do you belong to any clubs o r organizations such as jehovah's witness groups, unions, fraternal or athletic groups, or [...] Answer Date Recorded Total Score 0 08/10/2023 [facility] ional [facility] - [...] got money to buy more. Never True 08/10/2023 Within the past 12 months th e food we bought just didn't last and we didn't have money to get more. Never True 08/10/2023 Purpose - Life Answer Date Recorded I [...] Encounter - Juan Diego Esquivel CMA - 08/11/2023 3:51 PM EDT Pt called and would like a referral for her rt hip pain.She states it is a 9 all the time.She wouldlike to go to Dr Jair Balbuena [address] [place] [address] fax number is [phone]. * Telephone Encounter - Michael Steiner DO - 08/11/2023 3:51 PM EDT Message noted. It is too early, she has not even started the physical therapy yet. She needs to do that for a few weeks * Telephone Encounter - Juan Diego Esquivel CMA - 08/11/2023 3:51 PM EDT OK! I will let her know. documented in this encounter Plan of Treatment Upcoming Encounters Date Type Department Care Team (Late st Contact Info) Description 10/27/2024 4:15 PM EDT Office Visit [facility] - Family Medicine [address] [place] [address] Michael Steiner DO [address] [place] [address] 11/01/2024 4:[address] [facility] - Total Rehab [address] [place] [address] Cervicogenic headache 11/07/2024 2:30 PM EDT Office Visit [facility] Internal Medicine - Family Medicine [address] [place] [address] Michael Steiner DO [address] [place] [address] 11/28/2024 2:00 PM EDT Office Visit [facility] - [facility] Failure Clinic [address] [place] [phone] Inez Cook, LOOM SETTER FOURDRINIER-JOINT SETTER [address] [place] [address] documented as of this encounter Visit Diagnoses Not on filedocumented in this encounter Additional Health Concerns Infection Onset Date Last Indicated Resolved Time COVID-19 Rule-Out 12/17/2023 12/17/2023 12/17/2023 1:50 PM EDT Assessment Noted Time PHQ-9 Depression Total Score: 0 08/10/19 1:05 PM EDT documented as of this encounter Care Teams Gluer Machine Setup Operator Relationship Specialty Start Date End Date Michael Steiner DO [address] [place] [address] PCP - General Internal Medicine 12/17/23 documented as of this encounter
--- OUTSIDE RECORDS SUMMARY | 2024-10-27 08:28 | XMS_ITS | Encounter Summary ---
Author Organization [facility] Address [id number] [address] [place] [address] Care Team Providers Care Datastage Developer Name Role Phone Michael Steiner DO Primary Care Provider [phone] Reason for Visit * Reason Comments Med Refill Encounter Details Date Type Department Care Team (Late st Contact Info) Description 06/28/2024 Refill [facility] Internal Medicine - Family Medicine [address] [place] [address] Michael Steiner DO [address] [place] [address] Spinal stenosis of lumbar region with neurogenic claudication Social History Tobacco Use Types Packs/Day Years Used Date Smoking Tobacco: Former Cigarettes 1 40 0 09/1981 - 09/2021 Smokeless Tobacco: Never Comments:5-6 cigerettes a da y Alcohol Use Standard Drinks/Week Comments Not Currently 0 (1 standard drink = 0.6 oz pur e alcohol) last use 15 years ago [facility] Utilities Answer Date Recorded In the past 12 months has [employer], gas, oil, or water company threatened to [...] Answer Date Recorded Total Score 0 01/04/2024 [facility] of Occupat ional Health - Occupational Stress [...] Internal Medicine - Family Medicine [address] [place] [address] Michael Steiner, [address] [place] [address] 11/01/2024 4:30 PM EDT Appointment [facility] Rick Young [place] - Total Rehab [address] [place] [phone] Cervicogenic headache 11/07/2024 2:30 PM EDT Office Visit [facility] Internal Medicine - Family Medicine [address] [place] [address] Michael Steiner, [address] [place] [address] 11/28/2024 2:00 PM EDT Office Visit [facility] - Heart Failure Clinic [address] [place] [address] Inez Cook, MANAGER STATE-CLERICAL SUPPORT [address] [place] [address] documented as of this encounter Goals Goal Patient Goal Type Associated Problems Recent Progress Patient-Stated? Author home General Yes Jimena Snider LSW Note: Evaluation of progress towards goal: under assessment documented as of this encounter Visit Diagnoses Diagnosis Spinal stenosis of lumbar region with neurogenic claudication Cervicogenic headache Headache documented in this encounter Additional Health Concerns Assessment Noted Time PHQ-9 Depression Total Score: 0 01/04/20 1:01 PM EDT documented as of this encounter Care Teams Datastage Developer Relationship Specialty Start Date End Date Michael Steiner DO [address] [place] [address] PCP - General Internal Medicine 12/17/23 documented as of this encounter
--- OUTSIDE RECORDS SUMMARY | 2024-10-27 08:28 | XMS_ITS | Encounter Summary ---
Author Organization [facility] Address [id number] [address] [place] [address] Care Team Providers Care Qualitative Researcher Name Role Phone Michael Steiner DO Primary Care Provider [phone] Encounter Details Date Type Department Care Team (Late st Contact Info) Description 09/03/2022 [facility] [address] [facility] [address] [place] [address] Cynthia Buchanan, NOVELTY WORKER-MARINE ELECTRICIAN HELPER [address] [place], [place] [phone] Social History Tobacco Use Types Packs/Day Years [...] week 01/09/2020 How often do you attend jehovah's witness or anglican serv ices? Never 01/09/2020 Do you belong [...] Recorded Do you need help finding a [employer] center and/or a training program? No 01/09/2020 [...] Description 10/27/2024 4:15 PM EDT [facility] [address] [place] [address] Michael Steiner, [address] [place] [address] 11/01/2024 4:30 PM EDT Appointment [facility] Rick Young [place] - Total Rehab [address] [place] [phone] Cervicogenic headache 11/07/2024 2:30 PM EDT [facility] [address] [place] [address] Michael Steiner DO [address] [place] [address] 11/28/2024 2:00 PM EDT Office Visit [facility] - Heart Failure Clinic [address] [place] [address] Inez Cook, NOVELTY WORKER-MARINE ELECTRICIAN HELPER [address] [place] [address] documented as of this encounter Visit Diagnoses [...] documented as of this encounter Care Teams Qualitative Researcher Relationship Specialty Start Date End Date Michael Steiner DO [address] [facility] [place] [address] PCP - General Internal Medicine 12/17/23 documented as of this encounter
--- OUTSIDE RECORDS SUMMARY | 2024-10-27 08:28 | XMS_ITS | Encounter Summary ---
Author Organization [employer] Sys tem Address [id number] [address] [place] [address] Care Team Providers Care Javascript Programmer Name Role Phone JoanMichael gonsalez Janae CABRERA Primary Care Provider [phone] Encounter Details Date Type Department Care Team (Late st Contact Info) Description 08/03/2023 Orders Only [facility] Pulmonary/Sleep Medicine [address] [phone] Thang Vora RN Chronic hypoxic respiratory failure ([facility]) (Primary Dx) Social History Tobacco Use [...] In the past 12 months has th [employer], gas, oil, or water [employer] threatened to shut off services in your [...] week 07/25/2023 How often do you attend [facility] or yarsani services? More than 4 times per year [...] Date Recorded Total Score 0 07/01/2023 [facility] of Occupat ional Health - [...] Recorded Do you need help finding a [facility] career center and/or a training program? [...] 10/27/2024 4:15 PM EDT Office [facility] Internal Medicine - Family Medicine [address] [place] [address] Michael Steiner, [address] [place] [address] 11/01/2024 4:30 PM EDT Appointment [facility] - Total Rehab [address] [place] [address] Cervicogenic headache 11/07/2024 2:30 PM EDT Office [facility] Internal Medicine - Family Medicine [address] [place] [address] Michael Steiner, [address] [place] [address] 11/28/2024 2:00 PM EDT Office Visit [facility] - Heart Failure Clinic [address] [place] [address] Inez Cook, INSPECTOR FIREARMS-LOOM STOP CHECKER [address] [place] [address] documented as of this encounter Visit Diagnoses Diagnosis Chronic hypoxic respiratory failure (CMS-HCC)- Primary Cervicogenic headache Headache documented in this encounter Additional Health Concerns Infection Onset Date Last Indicated Resolved Time COVID-19 Rule-Out 12/17/2023 12/17/2023 12/17/2023 1:50 PM EDT Assessment Noted Time PHQ-9 Depression Total Score: 0 07/01/19 2:19 PM EST documented as of this encounter Care Teams Javascript Programmer Relationship Specialty Start Date End Date Michael Steiner DO [address] [place] [address] PCP - General Internal Medicine 12/17/23 documented as of this encounter
--- OUTSIDE RECORDS SUMMARY | 2024-10-27 08:28 | XMS_ITS | Patient Health Record ---
Author Organization [facility] [place] Address [address] [place] [address] Care Team Providers Care Outside Dealer Sales Representative Name Role Phone None, Unknown or Primary Care Provider Unavailab le Reason For Referral No Information Plan Of Treatment No Information Insurance Providers Payer Name Payer Address Payer Phone Subscriber Number Group Number Insured Name Patient Relationship to Insured Coverage Start Date Coverage End Date [facility] PRIMARY MEDICARE [address] [place] [address] [id number] Monet Recinos Self - patient is the insured MED[place]ID [place] 2ND INS [address] OFFICE OF [place], [place] [id number] Monet Recinos Self - patient is the insured
--- OUTSIDE RECORDS SUMMARY | 2024-10-27 08:28 | XMS_ITS | Encounter Summary ---
Author Organization [employer] [facility] tem Address [id number] [address] [place] [address] Care Team Providers Care Data Keyer Name Role Phone Michael Steiner DO Primary Care Provider [phone] Reason for Referral * Misc (Routine) - Closed Specialty Diagnoses / Procedures Referred By Contac t Referred To Contact Diagnoses Chronic respiratory failure with hypoxia and hypercapnia (CMS-HCC) Procedures Oxygen Therapy Michael Steiner DO [address] [place] [address] Phone: tel: fax: Referral ID Status Reason Start Date Expiration Date Visits Re quested Visits Authorized [id number] Closed 08/13/2023 08/12/2024 1 1 Encounter Details Date Type Department Care Team (Late st Contact Info) Description 08/13/2023 Orders Only [facility] Internal Medicine - Family Medicine [address] [place] [address] Michael Steiner DO [address] [place] [address] Chronic respiratory failure with hypoxia and hypercapnia [...] often do you attend chur ch or sikh services? More than 4 times per year 07/25/2023 Do you belong to any clubs o r organizations such as druze groups, unions, fraternal or athletic groups, or [...] Answer Date Recorded Total Score 0 08/10/2023 [facility] of Occupat ional Health - Occupational Stress [...] you need help finding a [facility] center and/or a training program? No 07/25/2023 [...] [facility] Medicine - Family Medicine [address] [place] [address] Michael Steiner, DO [address] [facility] [place] [address] 11/01/2024 4:30 PM EDT Appointment [facility] [address] [place] [address] Cervicogenic headache 11/07/2024 2:30 PM EDT Office Visit [facility] Internal Medicine - Family Medicine [address] [place] [address] Michael Steiner DO [address] [place] [address] 11/28/2024 2:00 PM EDT Office Visit [facility] - Heart Failure Clinic [address] [place] [address] Inez Cook, DRILL GRINDER-TOLL LINE REPAIRER [address] [place] [address] documented as of this encounter Visit Diagnoses Diagnosis Chronic respiratory failure with hypoxia and hypercapnia (CMS-HCC)- Primary Cervicogenic headache Headache documented in this encounter Additional Health Concerns Infection Onset Date Last Indicated Resolved Time COVID-19 Rule-Out 12/17/2023 12/17/2023 12/17/2023 1:50 PM EDT Assessment Noted Time PHQ-9 Depression Total Score: 0 08/10/19 1:05 PM EDT documented as of this encounter Care Teams Data Keyer Relationship Specialty Start Date End Date Michael Steiner DO [address] [place] [address] PCP - General Internal Medicine 12/17/23 documented as of this encounter
--- OUTSIDE RECORDS SUMMARY | 2024-10-27 08:28 | XMS_ITS | Encounter Summary ---
Author Organization [employer] s tem Address [id number] [address] [place] [address] Care Team Providers Care Grey Roll Worker Name Role Phone Michale Steiner DO Primary Care Provider [phone] Encounter Details Date Type Department Care Team (Late st Contact Info) Description 09/04/2024 Orders Only [facility] Internal Medicine - Family Medicine [address] [place] [address] Michael Steiner DO [address] [place] [address] Social History Tobacco Use Types Packs/Day Years Used Date Smoking Tobacco: Former Cigarettes 1 40 0 09/1981 - 09/2021 Smokeless Tobacco: Never Comments:5-6 cigerettes a da y Alcohol Use Standard Drinks/Week Comments Not Currently 0 (1 standard drink = 0.6 oz pur e alcohol) last use [address] [facility] Utilities Answer Date Recorded In the past 12 months has [employer], gas, oil, or water company threatened [...] often do you attend chur ch or zoroastrianism services? More than 4 times per year 07/25/2023 Do you belong to any clubs o r organizations such as holiness groups, unions, fraternal or athletic groups, or [...] Answer Date Recorded Total Score 0 07/07/2024 [facility] of Occupat ional Health - Occupational [...] Internal Medicine - Family Medicine [address] [place] [address] Michael Steiner DO [address] [place] [address] 11/01/2024 4:30 PM EDT Appointment [facility] Rick Young [place] - Total Rehab [address] [place] [phone] Cervicogenic headache 11/07/2024 2:30 PM EDT Office Visit [facility] Internal Medicine - Family Medicine [address] [place] [address] Michael Steiner, [address] [place] [address] 11/28/2024 2:00 PM EDT Office Visit [facility] - Heart Failure Clinic [address] [place] [address] Inez Cook, STOCKROOM INVENTORY CLERK-LEAD RADIATION THERAPIST [address] [place] [address] documented as of this encounter Goals Goal [...] documented as of this encounter Care Teams Grey Roll Worker Relationship Specialty Start Date End Date Michael Steiner DO [address] [place] [address] PCP - General Internal Medicine 12/17/23 documented as of this encounter
--- NOTE | 2024-10-27 08:29 | PM.CN ---
Consult Note: HPI Data of Consult Patient: known to practice within the last 3 years Consult date: 10/27/24 Requesting Physician: Harper Alvarez NP Primary Care Provider: RAJNI CARDOZO Consult Narrative Reason for consult: low back and left shoulder pain Narrative: 64yof who presents for evaluation. worsening bilateral low back pain for past 12 months. became worse after a fall. evaluated by spinal surgeon, who believes it is sij mediated. imaging shows multilevel spinal degeneration and sij degeneration. has engaged in a series of provider directed home exercises >6 weeks, without benefit. utilizing tylenol PRN. denies adverse med side effects. pt would like to discuss chronic left shoulder pain secondary to OA, previously found significant benefit to injections through prior orthopedic group but shes no longer seeing them. pt here today to discuss repeat left shoulder injections and right/left SIJ injection >50% improvement for at least 3 months. pain today 7/10 increasing to 10/10 with standing, lifting, ADLs. cc:: CC: Harper Alvarez NP [facility] Medical History (Updated 10/27/24 @ 08:46 by Harper Alvarez NP) Rheumatoid arthritis �M06.9 - Rheumatoid arthritis, unspecified (ICD-10) Anemia �D64.9 - Anemia, unspecified (ICD-10) Panic disorder �F41.0 - Panic disorder [episodic paroxysmal anxiety] (ICD-10) PTSD (post-traumatic stress disorder) �F43.10 - Post-traumatic stress disorder, unspecified (ICD-10) Bipolar 1 disorder �F31.9 - Bipolar disorder, unspecified (ICD-10) Anxiety �F41.9 - Anxiety disorder, unspecified (ICD-10) Acid reflux �K21.9 - Gastro-esophageal reflux disease without esophagitis (ICD-10) BONY treated with BiPAP �G47.33 - Obstructive sleep apnea (adult) (pediatric) (ICD-10) Sleep apnea �G47.30 - Sleep apnea, unspecified (ICD-10) COPD (chronic obstructive pulmonary disease) �J44.9 - Chronic obstructive pulmonary disease, unspecified (ICD-10) CHF (congestive heart failure) �I50.9 - Heart failure, unspecified (ICD-10) Angina at rest �I20.89 - Other forms of angina pectoris (ICD-10) Heart attack �I21.9 - Acute myocardial infarction, unspecified (ICD-10) Surgical History Stented coronary artery �Z95.5 - Presence of coronary angioplasty implant and graft (ICD-10) Hx of cholecystectomy �Z90.49 - Acquired absence of other specified parts of digestive tract (ICD-10) H/O section �Z98.891 - History of uterine scar from previous surgery (ICD-10) Hx of CABG �Z95.1 - Presence of aortocoronary bypass graft (ICD-10) Meds Home Medications and Allergies Home Medications �Medication �Instructions �Recorded �Confirmed �Type celecoxib 200 mg capsule (Celebrex) 200 mg PO BID 02/23/24 03/21/24 History clonazepam 0.5 mg tablet 1 mg PO DAILY 02/23/24 03/21/24 History doxepin 100 mg capsule 75 mg PO DAILY 02/23/24 03/21/24 History empagliflozin 10 mg tablet 10 mg PO DAILY 02/23/24 03/21/24 History (Jardiance) pregabalin 50 mg capsule (Lyrica) 50 mg PO DAILY 02/23/24 03/21/24 History topiramate 100 mg tablet (Topamax) 100 mg PO BID 02/23/24 03/21/24 History torsemide 40 mg tablet 160 mg PO DAILY 02/23/24 03/21/24 History venlafaxine 150 mg 225 mg PO DAILY 02/23/24 03/21/24 History capsule,extended release 24 hr (Effexor XR) albuterol sulfate 90 mcg/actuation 1 puff inhalation Q4H PRN 02/24/24 03/21/24 History aerosol inhaler shortness of breath or wheezing aripiprazole 15 mg tablet 15 mg PO BEDTIME 02/24/24 03/21/24 History budesonide 160 mcg-glycopyr 9 2 inh inhalation BID 02/24/24 03/21/24 History mcg-formot 4.8 mcg/actuation HFA inhaler (Breztri Aerosphere) calcitonin (salmon) 200 1 spray intranasal (ALT) DAILY 02/24/24 03/21/24 History unit/actuation nasal spray furosemide 40 mg tablet (Lasix) 40 mg PO .MWF 02/24/24 03/21/24 History lamotrigine 150 mg tablet 150 mg PO DAILY 02/24/24 03/21/24 History pantoprazole 40 mg tablet,delayed 40 mg PO DAILY 02/24/24 03/21/24 History release potassium chloride 20 mEq 20 meq PO DAILY 02/24/24 03/21/24 History tablet,extended release spironolactone 25 mg tablet 25 mg PO DAILY 02/24/24 03/21/24 History Allergies Allergy/AdvReac Type Severity Reaction Status Date / Time Penicillins Allergy Unknown Unknown Verified 03/21/24 10:49 Exam Constitutional Documenting provider has reviewed patient's vital signs: yes Common normals: no apparent distress, oriented x3, healthy appearing, alert and well nourished General appearance: cooperative HENMT Common normals: normocephalic, hearing grossly normal bilaterally and moist oral mucous membranes Head and scalp: normocephalic Eye Common normals: PERRL Pupil: PERRL Neck & C-Spine Common normals: full ROM General: normal visual inspection Chest Common normals: inspection of chest normal Respiratory Common normals: normal respiratory effort, no retractions and no use of accessory muscles Back & Pelvis Lumbar spine/lower back: pain with ROM, lumbar spinal tenderness and straight leg raise negative bilaterally Sacroiliac joints: SI joint(s) abnormal Other: bilateral sij positive ariel(patricks), gaenslens, thigh thrust, compression test Extremity Left upper extremity: shoulder joint Other: tender to palpation of posterior shoulder, full ROM but notes moderate pain. no edema noted. positive posterior liftoff, crossbody adduction, empty can test Neuro Common normals: oriented x3 Sensorium/orientation: alert Psych Common normals: mental status grossly normal, thought process normal, cooperative, affect normal, speech normal and activity/motor behavior normal Speech: normal speech Thought process: normal thought process Results Additional Findings Additional findings: If on a controlled substance or opioids, I have checked an [place] report on this patient and there are no aberrancies noted in the prescribing history.��If on a controlled substance or opioid a drug screen was completed and reviewed within the last year, and if there has not been a drug screen completed we ordered one today to monitor higher risk, state monitored pain medication use. As part of providing excellent, safe, comprehensive care, the following was completed at our patient's visit: 1. A medication reconciliation and review to ensure accurate knowledge of current/active medications, including asking our patients to inform us about any [id number] medications or herbal remedies/nutritional supplements/alternative remedies. 2. A review to specifically ensure our patients have had annual screening for screening for depression, screening for tobacco use, and screening for unhealthy alcohol use. For concerning screenings had a discussion with the patient, provided patient education, and recommended follow-up with primary care provider when appropriate. If patient noted with a risk of falling, they received education on strength, gait, and balance training to prevent future risk of falling. Portions of this note may have been carried over from the previous visit and updated as appropriate. Please note this office utilizes paper charting in addition to the electronic medical record. A list of current medications, vitals, and PMH is available there as the clinical staff outside of myself do not have access to [employer] charting during the clinic day operations. As part of providing quality comprehensive care the current medications, vitals, and PMH were reviewed in the paper chart. Assessment and Plan Assessment and Plan (1) Osteoarthritis of left shoulder: (2) Sacroiliitis: (3) Lumbar spondylosis: Plan The patient has had over 3 months of moderate to severe left shoulder and low back pain with functional impairment and inadequate response to conservative care including NSAIDS (unless there are contraindication such as concurrent blood thinners), multiple oral or topical pain medications, and home exercise program/physical therapy.� Patient has completed >6 weeks of guided home exercise program and/or formal physical therapy program without relief of their symptoms.� I have reviewed the imaging of the left shoulder and lumbar spine and no red flags were identified.� The Oswestry Disability Index was completed, and the patient scored a 54%.� The patient noted the following:�� moderate to severe pain, pain with ADLs, sitting, standing, walking, sleeping, social life, travel We discussed the risks and benefits of the procedure with the patient, and we are NOT planning on using sedation as outlined in the guidelines from Medicare unless there is a documented reason that sedation would be strongly recommended.��The procedure will be completed with fluoroscopic guidance.� proceed with repeat bilateral SIJ injection under fluoroscopy plan for left shoulder injection in office with Dr Root continue current medications continue HEP as tolerated f/u after SIJ injection
== END 2024-10-27 08:22 | disposition home or self-care (01) ==
PROVIDERS: PCP Internal Medicine; Visit Provider Nurse Practitioner
DX: M19.012 Primary osteoarthritis, left shoulder (principal); M46.1 Sacroiliitis, not elsewhere classified; M47.816 Spondylosis without myelopathy or radiculopathy, lumbar region
CPT/HCPCS: G0463

== ENCOUNTER 2024-11-14 10:15 | Day surgery (SDC) | payer MEDICARE, MEDICAID, SELFPAY ==
--- OUTSIDE RECORDS SUMMARY | 2023-06-02 09:30 | XMS_ITS ---
Author Organization [facility] in [place] Address [address] [place] [address] Care Team Providers Care Gerontological Nurse Practitioner Name Role Phone None, Unknown or Primary Care Provider Unavailab Michael Soni Unavailable [phone] REASON FOR VISIT [place] f/u Encounters Encounter Location Date Provider Diagnosis [facility] [address] [place] [address] 06/02/2023 Michael Singh Plan Of Treatment No Information Progress Notes * Monet YORK DDOB: [birth year] (64 yo F)Acc No.[id number]:06/02/2023 UNLOCKED PROGRESS NOTE Progress Note Patient: Javid ESPITIA Monet Mumtaz Provider: Mumtaz Singh MD :1960 A ge:63 Y S ex:Female Date:06/02/2023 Address:[address], [address], [facility] Pcp:Unknown or None Subjective: * Chief Complaints: * 1 . [place] f/u. * Medical History: Objective: * Vitals: Assessment: Plan: * Treatment: * * Electronic signature of Michael Singh MD, [id number] on 11/14/2024 at 10:19 AM EDT Sign off status: Pending Visit Status: C ANC (Cancelled) * Provider: Mumtaz Singh MD Date: 06/02/2023 Generated for Printi ng/Faxing/eTransmitting on: 0 11/14/2024 10:19 AM EDT
--- OUTSIDE RECORDS SUMMARY | 2023-06-08 08:45 | XMS_ITS ---
Author Organization [facility] Address [address] [place] [id number] Care Team Providers Care Superintendent House Name Role Phone Saqib Alcala Unavailable [phone] REASON FOR VISIT Anemia & Pre-DM Social History Sex Assigned At : Social History Observation Description Sex Assigned At Female Encounters Encounter Location Date Provider Diagnosis [place] [address] [place] [id number] 06/08/2023 Saqib Alcala Plan Of Treatment No Information Progress Notes * Analy YORKhDOB:1960 (64 yo F)Acc No.[id number]:06/08/2023 Medical Note Patient: Monet JONES Provider: JAH Dexter :1960 A ge:63 Y S ex:Female Date:06/08/2023 Address:[id number] Subjective: * Chief Complaints: * 1 . Anemia & Pre-DM. * Medical History: Objective: * Vitals: Assessment: Plan: * Treatment: * Billing Information: * Visit Code: * Procedure Codes: * Electronic signature of JAH Elder on 11/14/2024 at 10:17 AM EDT Sign off status: Pending * Provider: JAH Dexter Date: 06/08/2023 Generated for Kiki ng/Faxing/eTransmitting on: 0 11/14/2024 10:17 AM EDT
--- OUTSIDE RECORDS SUMMARY | 2024-11-02 08:12 | XMS_ITS | Encounter Summary ---
Author Organization [employer] [facility] Address [id number] [place] [address] Care Team Providers Care Bellmaker Name Role Phone Michael Steiner DO Primary Care Provider [phone] Reason for Referral * Diagnostic Imaging (Routine) - Pending Review Specialty Diagnoses / Procedures Referred By Contac t Referred To Contact Diagnoses Nausea and vomiting, unspecified vomiting type Procedures Fluoroscopy upper GI with esophagus Michael Steiner DO [address] [place] [address] Phone: tel: fax: Referral ID Status Reason Start Date Expiration Date V isits Requested Visits Authorized [id number] Pending Review 10/27/2024 10/27/2025 1 1 Reason for Visit * Diagnostic Imaging (Routine) - Pending Review Specialty Diagnoses / Procedures Referred By Rick rahman Referred To Contact Diagnoses Nausea and vomiting, unspecified vomiting type Procedures Fluoroscopy upper GI with esophagus Michael Steiner DO [address] [place] [address] Phone: tel: fax: Referral ID Status Reason Start Date Expiration Date V isits Requested Visits Authorized [id number] Pending Review 10/27/2024 10/27/2025 1 1 Encounter Details Date Type Department Care Team (Latest Contact Info) Description 11/02/2024 8:12 AM EDT - 11/02/2024 11:59 PM EDT Hospital Encounter [facility] - Radiology [address] [place] [address] Nausea and vomiting, unspecified vomiting type Discharge Disposition: Home Social History Tobacco Use Types Packs/Day Years Used Date Smoking Tobacco: Former Cigarettes 1 40 0 09/1981 - 09/2021 Smokeless Tobacco: Never Comments:5-6 cigerettes a da y Alcohol Use Standard Drinks/Week Comments Not Currently 0 (1 standard drink = 0.6 oz pur e alcohol) last use 15 years ago [facility] Utilities Answer Date Recorded In the [...] often do you attend chur ch or jewish services? More than 4 times per year [...] PHQ-2 Answer Date Recorded Total Score 0 10/27/2024 [facility] - Occupational Stress Questionnaire Answer Date Recorded [...] Recorded Do you need help finding a [facility] career center and/or a training program? No 07/25/2023 Hunger Screening Answer Date Recorded Within the past 12 months we worried whether our food would run out before we got money to buy more. Never True 10/27/2024 Within the past 12 months th e food we bought just didn't last and we didn't have money to get more. Never True 10/27/2024 Purpose - Life Answer Date Recorded I have a purpose and direction in my life. Stron gly Agree 07/25/2023 Comments No Sex and Gender Information Value Date Recorded Sex Assigned at Female 09/03/2020 8:51 AM EDT Legal Sex Female 2:26 PM EDT Gender Identity Female 09/03/2020 8:51 AM EDT Sexual Orientation Straight 03/28/2023 8: 29 PM EST documented as of this encounter Medications at Time of Discharge acetaminophen (TYLENOL) 325 mg tablet Take 2 tablets (650 mg total) by mouth every 4 (four) hours as needed for pain or headaches. 30 tablet 4 albuterol (ACCUNEB) 0.63 mg/3 mL nebulizer solution Inhale 3 mL (0.63 mg total) by nebulization every 6 (six) hours as needed for wheezing. albuterol (PROVENTIL HFA;VENTOLIN HFA) 90 mcg/actuation inhaler ARIPiprazole (ABILIFY) 15 mg tablet 4 atorvastatin (LIPITOR) 80 mg tabletIndications:A therosclerosis of [place]ski coronary artery of belk[place]ski heart without angina pectoris,Hx of hyperlipidemia Take 1 tablet (80 mg total) by mouth in the morning. 90 tablet 3 4 budesonide-glycopyr -formoterol (BREZTRI AEROSPHERE) 160-9-4.8 mcg/actuation HFA aerosol inhalerIndications: Chronic obstructive pulmonary disease, unspecified COPD type ([facility]) Inhale 2 puffs in the morning and 2 puffs before bedtime. 10.7 g 10 4 celecoxib (CeleBREX) 200 mg capsuleIndications: Arthritis of left sacroiliac joint Take 1 capsule (200 mg total) by mouth in the morning. 30 capsule 2 5 cholecalciferol, vitamin D3, 5,000 units tablet Take 2 tablets (10,000 Units total) by mouth in the morning. clonazePAM (KlonoPIN) 0.5 mg tablet 4 cyanocobalamin 1000 MCG tablet doxepin (SINEquan) 75 mg capsule empagliflozin (JARDIANCE) 10 mg tablet tabletIndications:C hronic heart failure with preserved ejection fraction ([facility]),Atheroscl erosis of [place]ski coronary artery of belk[place]ski heart without angina pectoris Take 1 tablet (10 mg total) by mouth in the morning. TAKE 1 TABLET (10 MG TOTAL) BY MOUTH IN THE MORNING. 90 tablet 1 5 ezetimibe (ZETIA) 10 mg tabletIndications:A therosclerotic heart disease of [place]ski coronary artery with other forms of angina pectoris Take 1 tablet (10 mg total) by mouth in the morning. 90 tablet 1 5 hydrOXYzine (ATARAX) 25 mg tablet Take 1 tablet (25 mg total) by mouth. 5 lamoTRIgine (LaMICtal) 150 mg tablet 4 pregabalin (LYRICA) 100 mg capsuleIndications: Peripheral polyneuropathy TAKE 1 CAPSULE BY MOUTH IN THE MORNING AND 1 CAPSULE BEFORE BEDTIME 60 capsule 5 spironolactone (ALDACTONE) 25 mg tabletIndications:S hortness of breath,Chronic heart failure with preserved ejection fraction (CMS-HCC) Take 1 tablet (25 mg total) by mouth in the morning. 90 tablet 4 TRINTELLIX 10 mg tablet Take 1 tablet (10 mg total) by mouth. 5 pantoprazole (PROTONIX) 40 mg EC tabletIndications:G namrata-esophageal reflux disease without esophagitis TAKE 1 TABLET BY MOUTH EVERY DAY IN THE MORNING BEFORE BREAKFAST 90 tablet 1 5 11/08/19 25 propranoloL (INDERAL) 40 mg tabletIndications:C hronic heart failure with preserved ejection fraction (CMS-HCC) Take 1 tablet (40 mg total) by mouth in the morning. 5 11/08/19 25 documented as of this encounter Plan of Treatment Upcoming Encounters Date Type Department Care Team (Late st Contact Info) Description 11/28/2024 2:00 PM EDT Office Visit [facility] [address] [place] [address] Inez Cook, DIRECTOR [employer] [address] [place] [id number] 12/07/2024 2:00 PM EDT Office Visit [facility] Internal Medicine - Family Medicine [address] [place] [phone] Michael Steiner DO [address] [place] [address] documented as of this encounter Goals Goal Patient Goal Type Associated Problems Recent Progress Patient-Stated? Author home General Yes Jimena Snider LSW Note: Evaluation of progress towards goal: under assessment documented as of this encounter Procedures Procedure Name Priority Date/Time Associated Diagnosis Comments FL UGI WITH ESOPHAGUS Routine 11/02/2024 8:34 AM EDT Nausea and vomiting, unspecified vomiting type documented in this encounter Results * Fluoroscopy upper GI with esophagus (11/02/2024 8:34 AM EDT) Anatomical Region Laterality Modality Abdomen, Body Radio Fluoroscop y 11/02/2024 10:1 1 AM EDT Narrative 11/02/2024 10:14 AM EDT HISTORY: Nausea and vomiting PROCEDURE: The procedure was performed by Dr. Finn. Following the oral administration of contrast material and effervescent crystals to achieve a double contrast technique, a esophagram and upper GI was performed. 7 fluoroscopic cine runs and 5 fluoroscopic spot images were obtained. Total fluoroscopy time was 1 minute 30 seconds. Reference air kerma was 82.3 mGy. FINDINGS: Esophagus views radiographically and fluoroscopically. A hiatal hernia was seen. Extensive tertiary waves were seen. There is no evidence for obstruction or mucosal abnormalities. Barium passed freely into the stomach. Some infiltrate normal contour. No mucosal abnormality seen. Results portions of the small bowel were unremarkable. IMPRESSION: * Large hiatal hernia * Otherwise normal esophagram and upper GI. Finalized by Kai Finn MD on 11/02/2024 10:14 AM Procedure Note Kai Finn MD - 11/02/2024 HISTORY: Nausea and vomiting PROCEDURE: The procedure was performed by Dr. Finn. Following theoral administration of contrast material and effervescent crystals toachieve a double contrast technique, a esophagram and upper GI wasperformed. 7 fluoroscopic cine runs and 5 fluoroscopic spot images wereobtained. Total fluoroscopy time was 1 minute 30 seconds. Reference air kerma was 82.3mGy. FINDINGS: Esophagus views radiographically and fluoroscopically. A hiatalhernia was seen. Extensive tertiary waves were seen. There is no evidencefor obstruction or mucosal abnormalities. Barium passed freely into thestomach. Some infiltrate normal contour. No mucosal abnormality seen. Resultsportions of the small bowel were unremarkable. IMPRESSION: * Large hiatal hernia * Otherwise normal esophagram and upper GI. Finalized by Kai Finn MD on 11/02/2024 10:14 AM Michael Steiner DO IMG FLUOROSCOPY ORDERABLES Final Result documented in this encounter Visit Diagnoses Diagnosis Nausea and vomiting, unspecified vomiting type documented in this encounter Administered Medications Inactive Administered Medications - up to 3 most recent administrations Medication Order MAR Action Action Date Dose Rate Site barium sulfate (E-Z-HD) 98 % suspension 340 g 340 g, oral, Once in imaging, contrast, barium sulfate (E-Z-HD) 98 % suspension, Starting on Thu11/02/24 at 0813, For 1 dose Given 11/02/2024 8:24 AM EDT 340 g sod bicarb-citric ac-simeth (E-Z GAS II) 2.21-1.53 gram/4 gram granule packet 1 packet 1 packet, oral, Once in imaging, sod bicarb-citric ac-simeth (E-Z GAS II) 2.21-1.53 gram/4 gram granule packet, Starting on Thu11/02/24 at 0813, For 1 dose Given 11/02/2024 8:24 AM EDT 1 packet documented in this encounter Additional Health Concerns Assessment Noted Time PHQ-9 Depression Total Score: 0 10/28/19 25 4:16 PM EDT documented as of this encounter Care Teams Bellmaker Relationship Specialty Start Date End Date Michael Steiner DO [address] [place] [id number] PCP - General Internal Medicine 12/17/23 documented as of this encounter
--- OUTSIDE RECORDS SUMMARY | 2024-11-07 14:30 | XMS_ITS | Encounter Summary ---
Author Organization [facility] tem Address [id number] [address] [place] [address] Care Team Providers Care Wildlife Officer Name Role Phone Michael Steiner DO Primary Care Provider [phone] Reason for Referral * Physical Therapy (Routine) - Authorized Specialty Diagnoses / Procedures Referred By Rick rahman Referred To Contact Rehabilitation Diagnoses Patellar tendinitis of right knee Michael Steiner DO [address] [place] [address] Phone: tel: fax: [facility] [address] [place] [phone] Phone: tel: fax: Referral ID Status Reason Start Date Expiration Date Visits Requested Visits Authorized [id number] Authorized Specialty Services Required 11/07/2024 05/10/2025 8 8 Reason for Visit * Reason Comments BP/ ok , Headache, right knee hurting, s welling. 2 weeks Question about lasix Encounter Details Date Type Department Care Team (Late st Contact Info) Description 11/07/2024 2:30 PM EDT Office Visit [facility] - Family Medicine [address] [place] [phone] Michael Steiner, DO [address] [place] [address] Hiatal hernia with GERD (Primary Dx); Stage 3a chronic kidney disease (CMS-HCC); Patellar tendinitis of right knee; Gastro-esophageal reflux disease without esophagitis; Venous insufficiency of both lower extremities Social History Tobacco Use Types Packs/Day Years Used Date Smoking Tobacco: Former Cigarettes 1 40 0 09/1981 - 09/2021 Smokeless Tobacco: Never Comments:5-6 cigerettes a da y Alcohol Use Standard Drinks/Week Comments Not Currently 0 (1 standard drink = 0.6 oz pur e alcohol) last use 15 years ago [facility] [employer] Answer Date Recorded In the past 12 months has th e electric, gas, oil, or water [employer] threatened to shut off services in your [...] often do you attend chur ch or catholic services? More than 4 times per year [...] PHQ-2 Answer Date Recorded Total Score 0 11/07/2024 [facility] [place] of Occupat ional Health - Occupational Stress [...] got money to buy more. Never True 11/07/2024 Within the past 12 months th e food we bought just didn't last and we didn't have money to get more. Never True 11/07/2024 Purpose - Life Answer Date Recorded I have a purpose and direction in my life. Stron gly Agree 07/25/2023 Comments No Sex and Gender Information Value Date Recorded Sex Assigned at Female 09/03/2020 8:51 AM EDT Legal Sex Female 2:26 PM EDT Gender Identity Female 09/03/2020 8:51 AM EDT Sexual Orientation Straight 03/28/2023 8: 29 PM EST documented as of this encounter Last Filed Vital Signs Vital Sign Reading Time Taken Comments Blood Pressure 130/60 11/07/2024 2:17 PM EDT Pulse 90 11/07/2024 2:17 PM EDT Temperature 36.9 C (98.4 F) 11/07/2024 2:17 PM EDT Respiratory Rate 20 11/07/2024 2:17 PM EDT Oxygen Saturation 92% 11/07/2024 2:17 PM EDT Inhaled Oxygen Concentration - - Weight 124.1 kg (273 lb 9.6 oz) 11/07/2024 2:17 PM EDT Height 175.3 cm (5' 9.02 ) 11/07/2024 2:17 PM ED T Body Mass Index 40.38 11/07/2024 2:17 PM EDT documented in this encounter Patient Instructions * Attachments The following attachments cannot be sent through Care Everywhere. * Esophagitis (Mosotho) * Patellar Tendinopathy (Mosotho) documented in this encounter Progress Notes * Michael Steiner, DO - 11/07/2024 2:30 PM EDT IM PROGRESS NOTE Patient - Monet Recinos Age - 64 y.o. - 1960 ASSESSMENT & PLAN 1. Hiatal hernia with GERD (Primary) -I reviewed the results of the recent upper GI with the patient and POA -restart pantoprazole 40 mg daily as previously recommended -anti reflux diet printed and given to the patient -symptoms maybe exacerbated by her ongoing use of Excedrin in addition to celecoxib -patient advised to stop the Excedrin, but may continue the celecoxib as safer of the 2 choices. However this may need to be discontinued if symptoms persist 2. Stage 3a chronic kidney disease ([facility]-H[facility]) -I reviewed the results of the recent lab testing with the patient. Overall stable to slightly worsened -renal protective strategies reviewed with the patient. Stop Excedrin as above. Continue celecoxib,but this may also need to be evaluated again. Also using pregabalin which will need to be monitored. -continue SGLT2 agent, and may need to reconsider ARB 3. Patellar tendinitis of right knee -I reviewed the results of previous knee x-ray which showed minimal arthritis -her exam would suggest that this is more of a patellar tendinitis rather than pure OA -currently going to PT for her neck and headaches -will add PT for the right knee -obtain x-ray of the right knee -in the meantime, start icing the knee down whenever she has pain (30 minutes 4 times daily). May continue to use celecoxib with reservations as above - Ambulatory referral to Physical Therapy; Future - X-ray knee right 3 views; Future 4. Gastro-esophageal reflux disease without esophagitis -restart pantoprazole 40 mg daily -patient with worsened anemia, which may suggest underlying gastritis or upper GI loss -if symptoms are not improved with anti reflux diet plus pantoprazole, will need to proceed with anEGD - pantoprazole (PROTONIX) 40 mg EC tablet; Take 1 tablet (40 mg total) by mouth every morning before breakfast. Dispense: 90 tablet; Refill: 0 5. Venous insufficiency of both lower extremities -has known chronic diastolic heart failure -edema has worsened over the past month. I suspect secondary to diet and activity changes, along with pregabalin and Welch 2 inhibitor -however, need to reinitiate furosemide 40 mg daily -continue GDMT including spironolactone, Jardiance - furosemide (LASIX) 40 mg tablet; Take 1 tablet (40 mg total) by mouth daily. Dispense: 30 tablet;Refill: 2 Subjective 64-year-old female presents for recheck on several medical problems including: -at last visit reported having vomiting, with mild nausea. This was happening daily or more frequently. Was told to restart her pantoprazole, but did not do so. -she underwent a upper GI which showed a hiatal hernia, without any mucosal changes. Continues to suffer from symptoms as described above -in conjunction with this, she had lab work to recheck on her kidney function as well as her anemia. Unfortunately her anemia worsened, with hemoglobin dropping down to 10 g/dL, with microcytic indices. -the patient is taking Celebrex 200 mg daily which has prescribed, and has also been taking extra-strength Excedrin 3 times daily trying to control her headache. It does relieve the headache, but sheis having to use the NSAID. -her kidney function overall was stable CKD 3A-B, with slight worsening of the creatinine and GFR since starting the furosemide once again -she says the swelling in her lower extremities is happening more constantly once again, despite avoiding salt, trying to elevate her legs, and wearing her CPAP. There have been no other changes to her medications or activity. Fortunately, her breathing has not worsened, and she does not describe any orthopnea, PND, or dyspnea on exertion -her right knee is bothering her more. It feels swollen and tender. Tenderness is mostly in the anterior portion of the knee, in his present whenever she tries to move or walk. She has never had any surgery to the knee, but says it has been an intermittent problem for ???years?? . I reviewed old records, and she had a plain film of the x-ray about 9 years ago, which showed minimal arthritis. She does report several injuries where she fell onto the anterior knee over the years. A review of systems was negative except for the following: General: weight gain Psychiatric: concentration difficulties, memory difficulties, and under the treatment of Psychiatryfor her bipolar disorder Hematological: Worsened microcytic anemia. Is taking aspirin surreptitiously, in addition to celecoxib Cardiovascular: edema Gastrointestinal: heartburn and hiatal hernia with reflux. Not currently taking her PPI Musculoskeletal: joint pain and noted in the right knee. Exam BP 130/60 (BP Site: Left Arm, BP Postition: Sitting, BP CUFF SIZE: L (13-17 inches)) Pulse 90 Temp 36.9 ??C (98.4 ??F) (Oral) Resp 20 Ht 175.3 cm (5' 9.02 ) Wt 124.1 kg (273 lb 9.6 oz) SpO2 92% BMI 40.38 kg/m?? Physical Exam Vitals reviewed. Exam conducted with a natural fabricator present (Friend/POA). Constitutional: General: She is not in acute distress. Appearance: She is well-developed. She is obese. She is not toxic-appearing. HENT: Head: Normocephalic. Right Ear: External ear normal. Left Ear: External ear normal. Nose: Nose normal. Mouth/Throat: Mouth: Mucous membranes are moist. Eyes: General: No scleral icterus. Neck: Vascular: No carotid bruit. Cardiovascular: Rate and Rhythm: Normal rate and regular rhythm. Pulses: Normal pulses. Heart sounds: No murmur heard. No gallop. Comments: Heart tones distant. Pulmonary: Effort: Pulmonary effort is normal. Breath sounds: No wheezing or rales. Abdominal: Palpations: Abdomen is soft. Musculoskeletal: General: Tenderness (Anterior right knee along the patellar tendon and with patellar grind) present. Cervical back: Tenderness (Bilateral paraspinal muscles extending from occiput to C7) present. Right lower leg: Edema (1+ to the knee) present. Left lower leg: Edema (1+ to the knee) present. Lymphadenopathy: Cervical: No cervical adenopathy. Skin: General: Skin is warm and dry. Coloration: Skin is not jaundiced. Findings: No bruising. Neurological: Mental Status: She is alert and oriented to person, place, and time. Sensory: No sensory deficit (Intact vibratory sensation bilateral feet and ankles). Motor: No weakness. Coordination: Coordination normal. Gait: Gait normal. Deep Tendon Reflexes: Reflexes are normal and symmetric. Psychiatric: Mood and Affect: Mood normal. Behavior: Behavior normal. Meds Current Outpatient Medications: acetaminophen (TYLENOL) 325 mg tablet, Take 2 tablets (650 mg total) by mouth every 4 (four) hours as needed for pain or headaches., Disp: 30 tablet, Rfl: 0 albuterol (ACCUNEB) 0.63 mg/3 mL nebulizer solution, Inhale 3 mL (0.63 mg total) by nebulization every 6 (six) hours as needed for wheezing., Disp: , Rfl: albuterol (PROVENTIL HFA;VENTOLIN HFA) 90 mcg/actuation inhaler, , Disp: , Rfl: ARIPiprazole (ABILIFY) 15 mg tablet, , Disp: , Rfl: atorvastatin (LIPITOR) 80 mg tablet, Take 1 tablet (80 mg total) by mouth in the morning., Disp: 90tablet, Rfl: 3 lvficgojsw-bcpuxijz-jlnuhfrnom (BREZTRI AEROSPHERE) 160-9-4.8 mcg/actuation HFA aerosol inhaler, Inhale 2 puffs in the morning and 2 puffs before bedtime., Disp: 10.7 g, Rfl: 10 celecoxib (CeleBREX) 200 mg capsule, Take 1 capsule (200 mg total) by mouth in the morning., Disp: 30 capsule, Rfl: 2 cholecalciferol, vitamin D3, 5,000 units tablet, Take 2 tablets (10,000 Units total) by mouth in the morning., Disp: , Rfl: clonazePAM (KlonoPIN) 0.5 mg tablet, , Disp: , Rfl: cyanocobalamin 1000 MCG tablet, , Disp: , Rfl: doxepin (SINEquan) 75 mg capsule, , Disp: , Rfl: empagliflozin (JARDIANCE) 10 mg tablet tablet, Take 1 tablet (10 mg total) by mouth in the morning.TAKE 1 TABLET (10 MG TOTAL) BY MOUTH IN THE MORNING., Disp: 90 tablet, Rfl: 1 ezetimibe (ZETIA) 10 mg tablet, Take 1 tablet (10 mg total) by mouth in the morning., Disp: 90 tablet, Rfl: 1 hydrOXYzine (ATARAX) 25 mg tablet, Take 1 tablet (25 mg total) by mouth., Disp: , Rfl: lamoTRIgine (LaMICtal) 150 mg tablet, , Disp: , Rfl: pregabalin (LYRICA) 100 mg capsule, TAKE 1 CAPSULE BY MOUTH IN THE MORNING AND 1 CAPSULE BEFORE BEDTIME, Disp: 60 capsule, Rfl: 0 spironolactone (ALDACTONE) 25 mg tablet, Take 1 tablet (25 mg total) by mouth in the morning., Disp: 90 tablet, Rfl: 0 TRINTELLIX 10 mg tablet, Take 1 tablet (10 mg total) by mouth., Disp: , Rfl: furosemide (LASIX) 40 mg tablet, Take 1 tablet (40 mg total) by mouth daily., Disp: 30 tablet, Rfl:2 pantoprazole (PROTONIX) 40 mg EC tablet, Take 1 tablet (40 mg total) by mouth every morning before breakfast., Disp: 90 tablet, Rfl: 0 Lab Results Office Visit on 10/27/2024 Component Date Value Ref Range Status HEMOGLOBIN A1C 10/27/2024 6.3 (H) 4.4 - 5.6 % Final EST. AVERAGE GLUCOSE 10/27/2024 134 mg/dL Final SODIUM 10/27/2024 143 134 - 146 mmol/L Final POTASSIUM 10/27/2024 4.4 3.5 - 5.0 mmol/L Final CHLORIDE 10/27/2024 102 98 - 109 mmol/L Final CARBON DIOXIDE 10/27/2024 34 (H) 22 - 32 mmol/L Final ANION GAP 10/27/2024 7 5 - 15 mmol/L Final BLOOD UREA NITROGEN 10/27/2024 19 5 - 27 mg/dL Final CREATININE 10/27/2024 1.27 (H) 0.40 - 1.00 mg/dL Final GLUCOSE 10/27/2024 114 (H) 65 - 99 mg/dL Final CALCIUM 10/27/2024 9.3 8.5 - 10.5 mg/dL Final TOTAL PROTEIN 10/27/2024 7.6 6.0 - 8.0 g/dL Final ALBUMIN 10/27/2024 4.4 3.2 - 5.3 g/dL Final ALKALINE PHOSPHATASE 10/27/2024 100 39 - 130 U/L Final AST 10/27/2024 22 <=41 U/L Final ALT 10/27/2024 33 (H) <=31 U/L Final BILIRUBIN,TOTAL 10/27/2024 0.3 0.3 - 1.2 mg/dL Final EGFR Non-Race Dependent 10/27/2024 48 (L) >=60 ml/min/1.73sq.m Final WBC 10/27/2024 9.1 4 - 11 x10E9/L Final RBC Count 10/27/2024 4.73 3.8 - 5.2 X10E12/L Final Hemoglobin 10/27/2024 10.0 (L) 11.7 - 15.5 g/dL Final Hematocrit 10/27/2024 32.9 (L) 35 - 47 % Final MCV 10/27/2024 70 (L) 80 - 100 fL Final MCH 10/27/2024 21.2 (L) 27 - 34 pg Final MCHC 10/27/2024 30.4 (L) 32 - 36 g/dL Final RDW 10/27/2024 20.4 (H) 11.5 - 15 % Final Platelet Count 10/27/2024 334 150 - 450 X10E9/L Final MPV 10/27/2024 8.2 7 - 12 fL Final Bands % 10/27/2024 4 % Final Neutrophils % 10/27/2024 70 % Final Lymphocytes % 10/27/2024 21 % Final Monocytes % 10/27/2024 2 % Final Eosinophils % 10/27/2024 2 % Final Basophils % 10/27/2024 1 % Final Neutrophils Absolute (M) 10/27/2024 6.8 (H) 1.5 - 6.6 10*3/uL Final Lymphocytes Absolute 10/27/2024 1.9 1.0 - 3.5 10*3/uL Final Monocytes Absolute 10/27/2024 0.2 0.0 - 0.9 10*3/uL Final Eosinophils Absolute 10/27/2024 0.2 0.0 - 0.4 10*3/uL Final Basophils Absolute 10/27/2024 0.1 0.0 - 0.2 10*3/uL Final RBC Morphology 10/27/2024 Reviewed Final Differential Type 10/27/2024 CELLAVISION DIFFERENTIAL Final Other Testing No results found. Michael Steiner DO., [facility] Office: [phone] documented in this encounter Plan of Treatment Upcoming Encounters Date Type Department Care Team (Late st Contact Info) Description 11/28/2024 2:00 PM EDT Office Visit [facility] - Heart Failure Clinic [address] [place] [phone] Inez Cook, SEXUAL ABUSE COUNSELLOR-SAND DIGGER [address] [place] [phone] 12/07/2024 2:00 PM EDT Office Visit [facility] Internal [facility] - Family Medicine [address] [place] [phone] Michael Steiner DO [address] [place] [address] Scheduled Orders Name Type Priority Associated Diagnoses Orde r Schedule X-ray knee right 3 views Imaging Routine Patellar tendinitis of right knee Expected: 11/07/2024, Expires: 11/07/2025 Scheduled Referrals Name Type Priority Associated Diagnoses Order Schedule Ambulatory referral to Physical Therapy Outpatient Referral Routine Patellar tendinitis of right knee 1 Occurrences starting 11/07/2024 until 11/07/2025 documented as of this encounter Goals Goal Patient Goal Type Associated Problems Recent Progress Patient-Stated? Author home General Yes Jimena Snider LSW Note: Evaluation of progress towards goal: under assessment documented as of this encounter Visit Diagnoses Diagnosis Hiatal hernia with GERD- Primary Stage 3a chronic kidney disease ([facility]) Patellar tendinitis of right knee Gastro-esophageal reflux disease without esophagitis Venous insufficiency of both lower extremities documented in this encounter Additional Health Concerns Assessment Noted Time PHQ-9 Depression Total Score: 0 11/08/19 25 2:16 PM EDT documented as of this encounter Care Teams Wildlife Officer Relationship Specialty Start Date End Date Michael Steiner DO [address] [place] [address] PCP - General Internal Medicine 12/17/23 documented as of this encounter
--- OUTSIDE RECORDS SUMMARY | 2024-11-14 10:17 | XMS_ITS | Encounter Summary ---
Author Organization [facility] tem Address [id number] [address] [place] [address] Care Team Providers Care Court Supervisor Name Role Phone Michael Steiner DO Primary Care Provider Reason for Visit * Reason Comments Med Refill Encounter Details Date Type Department Care Team (Late st Contact Info) Description 11/06/2020 Refill [facility] - Kilo Hodge Anna [address] [place] [address] Tiffany Luna APRN-[employer] [facility]ILL [address] [facility] [place], [place] [id number] Social History Tobacco Use Types Packs/Day Years [...] How often do you attend mandaeism or sabianism serv ices? Never 01/09/2020 Do [...] Recorded Do you need help finding a [employer] career center and/or a training program? No [...] Description 11/28/2024 2:00 PM EDT Office Visit [facility] - Heart Failure Clinic [address] [facility] [address] Inez Cook, TONAL REGULATOR-MILLER ROD MILL [address] [place] [address] 12/07/2024 2:00 PM EDT Office Visit [facility] Internal Medicine - Family Medicine [address] [place] [address] Michael Steiner DO [address] [place] [address] documented as of this encounter Visit Diagnoses [...] documented as of this encounter Care Teams Court Supervisor Relationship Specialty Start Date End Date Michael Steiner DO [address] [place] [address] PCP - General Internal Medicine 12/17/23 documented as of this encounter
--- OUTSIDE RECORDS SUMMARY | 2024-11-14 10:17 | XMS_ITS | Encounter Summary ---
Author Organization [employer] [facility] tem Address [id number] [address] [place] [address] Care Team Providers Care Fabrics And Material Cutter Name Role Phone Joansunshine Michael Janae CABRERA Primary Care Provider [phone] Reason for Visit * Reason Onset Date Comments Weight gain and swelling 08/31/2020 Encounter Details Date Type Department Care Team (Late st Contact Info) Description 08/31/2020 Telephone [facility] Cardiology [address] [place] [address] Sharon Beaver, VICTOR M Weight [...] week 01/09/2020 How often do you attend congregational or moravian serv ices? Never 01/09/2020 Do you belong to any clubs o r organizations such as congregational groups, unions, fraternal or athletic groups, or [...] Recorded Do you need help finding a [employer] career center and/or a training program? No [...] Description 11/28/2024 2:00 PM EDT Office Visit [facility] - Heart Failure Clinic [address] [place] [address] Inez Cook, INDUCTION HEATING EQUIPMENT SETTER-BOILER MECHANIC [address] [place] [address] 12/07/2024 2:00 PM EDT Office Visit [facility] Medicine - Family Medicine [address] [place] [phone] Michael Steiner DO [address] [place] [address] documented as of this encounter Visit Diagnoses [...] documented as of this encounter Care Teams Fabrics And Material Cutter Relationship Specialty Start Date End Date Michael Steiner DO [address] [place] [address] PCP - General Internal Medicine 12/17/23 documented as of this encounter
--- OUTSIDE RECORDS SUMMARY | 2024-11-14 10:17 | XMS_ITS | Encounter Summary ---
Author Organization [employer] [facility] tem Address [id number] [address] [place] [address] Care Team Providers Care Document Control Clerk Name Role Phone JoanMichael gonsalez Janae CABRERA Primary Care Provider [phone] Encounter Details Date Type Department Care Team (Late st Contact Info) Description 09/05/2020 Orders Only [facility] [address] [place] [phone] Sharon Beaver RN Edema, unspecified type (Primary [...] week 01/09/2020 How often do you attend christianity or sikh serv ices? Never 01/09/2020 Do you belong to any clubs o r organizations such as christianity groups, unions, fraternal or athletic groups, or [...] Recorded Do you need help finding a [employer] career center and/or a training program? No [...] Description 11/28/2024 2:00 PM EDT Office Visit [facility] - Heart Failure Clinic [address] [place] [address] Inez Cook, LINING CEMENTER-ICING MAKER [address] [place] [address] 12/07/2024 2:00 PM EDT Office Visit [facility] Internal Medicine - Family Medicine [address] [place] [address] Michael Steiner, DO [address] [place] [address] documented as of this encounter Visit Diagnoses Diagnosis Edema, unspecified type- Primary documented in this encounter Additional Health Concerns [...] documented as of this encounter Care Teams Document Control Clerk Relationship Specialty Start Date End Date Michael Steiner DO [address] [place] [address] PCP - General Internal Medicine 12/17/23 documented as of this encounter
--- OUTSIDE RECORDS SUMMARY | 2024-11-14 10:17 | XMS_ITS | Encounter Summary ---
Author Organization [employer] [facility] tem Address [id number] [address] [place] [address] Care Team Providers Care Insurance Healthcare Representative Name Role Phone Joansunshine Michael Janae CABRERA Primary Care Provider [phone] Reason for Visit * Reason Onset Date Comments Lorenzo 10/19/2020 Encounter Details Date Type Department Care Team (Late st Contact Info) Description 10/19/2020 [facility] [address] [place] [address] Sharon Beaver, VICTOR M [place] [...] How often do you attend temple or sikh serv ices? Never 01/09/2020 Do [...] Recorded Do you need help finding a [employer] career center and/or a training program? No [...] PM EDT Prior auth done for [employer]-note [facility] sent note not available and no idea if they will get any in -called [facility] they have a starter pack available. Called pt to see if she would be willing to getat [employer] due to questional availability at [facility]-states has decided not to use [employer]. documented in this encounter Plan of Treatment Upcoming Encounters Date Type Department Care Team (Late st Contact Info) Description 11/28/2024 2:00 PM EDT Office Visit [facility] - Heart Failure Clinic [address] [place] [phone] Inez Cook, CONSTRUCTION TRADES TEACHER-SUPERVISOR [employer] [address] [place] [phone] 12/07/2024 2:00 PM EDT Office Visit [facility] Internal Medicine - Family Medicine [address] [facility] [place] [place] [address] Michael Steiner DO [address] [place] [address] documented as of this encounter Visit Diagnoses [...] documented as of this encounter Care Teams Insurance Healthcare Representative Relationship Specialty Start Date End Date Michael Steiner DO [address] [place] [address] PCP - General Internal Medicine 12/17/23 documented as of this encounter
--- OUTSIDE RECORDS SUMMARY | 2024-11-14 10:17 | XMS_ITS | Encounter Summary ---
Author Organization [facility] Address [id number] [address] [place] [address] Care Team Providers Care Gauge And Weigh Machine Operator Name Role Phone JoansunshineMichael DO Primary Care Provider [phone] Encounter Details Date Type Department Care Team (Late st Contact Info) Description 08/31/2020 Orders Only [facility] Card[facility] [address] [place] [phone] Sharon Beaver, VICTOR M Social History Tobacco [...] week 01/09/2020 How often do you attend pentecostalism or adventism serv ices? Never 01/09/2020 Do you belong [...] Recorded Do you need help finding a [employer] center and/or a training program? No 01/09/2020 [...] Description 11/28/2024 2:00 PM EDT Office Visit [facility] - Heart Failure Clinic [address] [place] [address] Inez Cook, STRATEGIC PROCUREMENT MANAGER-HELICOPTER REPAIRER [address] [place] [address] 12/07/2024 2:00 PM EDT Office Visit [facility] Internal Medicine - Family Medicine [address] [place] [address] Michael Steiner, DO [address] [place] [address] documented as of this encounter Visit Diagnoses [...] documented as of this encounter Care Teams Gauge And Weigh Machine Operator Relationship Specialty Start Date End Date Michael Steiner DO [address] [place] [address] PCP - General Internal Medicine 12/17/23 documented as of this encounter
--- OUTSIDE RECORDS SUMMARY | 2024-11-14 10:17 | XMS_ITS | Encounter Summary ---
Author Organization [facility] Address [facility]-[id number] [address] [place] [address] Care Team Providers Care Pop Singer Name Role Phone Michael Steiner DO Primary Care Provider [phone] Reason for Visit * Reason Comments Med Refill Encounter Details Date Type Department Care Team (Late st Contact Info) Description 09/28/2020 Refill [facility] Cardiothoracic Surgeons - Kilo Hodge [place] [address] [place] [address] Tiffany Luna APRN-COAGULATOR [address] [facility] [place], [place] [id number] Social History Tobacco Use Types Packs/Day Years [...] week 01/09/2020 How often do you attend uatsdin or presybeterian serv ices? Never 01/09/2020 Do you belong to any clubs o r organizations such as uatsdin groups, unions, fraternal or athletic groups, or [...] Recorded Do you need help finding a [employer] career center and/or a training program? No [...] Clinic [address] [facility] [address] Inez Cook, SERVICE CASHIER-COAGULATOR [address] [place] [address] 12/07/2024 2:00 PM EDT Office Visit [facility] Internal Medicine - Family Medicine [address] [place] [address] Michael Steiner DO [address] [place] [address] documented as of this encounter Visit Diagnoses [...] documented as of this encounter Care Teams Pop Singer Relationship Specialty Start Date End Date Michael Steiner DO [address] [place] [address] PCP - General Internal Medicine 12/17/23 documented as of this encounter
--- OUTSIDE RECORDS SUMMARY | 2024-11-14 10:18 | XMS_ITS | Encounter Summary ---
Author Organization [facility] tem Address [facility]-[id number] [address] [place] [address] Care Team Providers Care Feed Elevator Worker Name Role Phone Michael Steiner DO Primary Care Provider [phone] Encounter Details Date Type Department Care Team (Late st Contact Info) Description 11/02/2024 Results Follow-Up [facility] Internal Medicine - Family Medicine [address] [place] [address] Michael Steiner DO [address] [place] [address] Fluoroscopy upper GI with esophagus Social History Tobacco Use Types Packs/Day Years Used Date Smoking Tobacco: Former Cigarettes 1 40 0 09/1981 - 09/2021 Smokeless Tobacco: Never Comments:5-6 cigerettes a da y Alcohol Use Standard Drinks/Week Comments Not Currently 0 (1 standard drink = 0.6 oz pur e alcohol) last use 15 years ago [facility] Utilities Answer Date Recorded In the past 12 months has [employer], gas, oil, or water company threatened to [...] any clubs o r organizations such as yarsani groups, unions, fraternal or athletic groups, or [...] Answer Date Recorded Total Score 0 10/27/2024 [facility] of Occupat ional Health - [...] Recorded Do you need help finding a [facility] career center and/or a training program? [...] Description 11/28/2024 2:00 PM EDT Office Visit [facility] - Heart Failure Clinic [address] [place] [address] Inez Cook, PURCHASING AND CLAIMS SUPERVISOR-HEALTH PROGRAM ANALYST [address] [place] [address] 12/07/2024 2:00 PM EDT Office Visit [facility] Internal Medicine - Family Medicine [address] [place] [address] Michael Steiner, [address] [facility] [address] documented as of this encounter Goals Goal [...] documented as of this encounter Care Teams Feed Elevator Worker Relationship Specialty Start Date End Date Michael Steiner DO [address] [place] [phone] PCP - General Internal Medicine 12/17/23 documented as of this encounter
--- OUTSIDE RECORDS SUMMARY | 2024-11-14 10:18 | XMS_ITS | Encounter Summary ---
Author Organization [facility] tem Address [id number] [address] [place] [address] Care Team Providers Care Information Clerk [employer]obile Club Name Role Phone Michael Steiner DO Primary Care Provider [phone] Encounter Details Date Type Department Care Team (Late st Contact Info) Description 02/12/2022 Patient Outreach [facility] of [facility] - Radiation Oncology [address] [place] [address] Lissette Baez RN Social History Tobacco Use [...] week 01/09/2020 How often do you attend jewish or adventist serv ices? Never 01/09/2020 Do you belong to any clubs o r organizations such as jewish groups, unions, fraternal or athletic groups, or [...] Recorded Do you need help finding a [employer] career center and/or a training program? No [...] Description 11/28/2024 2:00 PM EDT Office Visit [facility] - Heart Failure Clinic [address] [facility] [place] [address] Inez Cook, ARMOURED CAR ESCORT-CONGRESSIONAL REPRESENTATIVE [address] [place] [address] 12/07/2024 2:00 PM EDT Office Visit [facility] Internal Medicine - Family Medicine [address] [place] [address] Michael Steiner DO [address] [place] [address] documented as of this encounter Visit Diagnoses [...] documented as of this encounter Care Teams Information Clerk Automobile Club Relationship Specialty Start Date End Date Michael Steiner DO [address] [place] [address] PCP - General Internal Medicine 12/17/23 documented as of this encounter
--- OUTSIDE RECORDS SUMMARY | 2024-11-14 10:18 | XMS_ITS | Encounter Summary ---
Author [facility] Address [facility] [id number] [address] [place] [address] Care Team Providers Care Java Developer Analyst Name Role Phone Joansunshine Michael Janae CABRERA Primary Care Provider [phone] Reason for Visit * Reason Comments Med Refill Encounter Details Date Type Department Care Team (Late st Contact Info) Description 11/06/2022 Refill [facility] - [facility] Management Clinic [address] [place] [phone] Yuniel Stringer PA [address] [facility], 2nd [place] [address] Social History Tobacco Use Types Packs/Day Years [...] How often do you attend christian or pentecostalism serv ices? Never 01/09/2020 Do you belong [...] Recorded Do you need help finding a [employer] career center and/or a training program? No [...] Description 11/28/2024 2:00 PM EDT Office Visit [facility] - Heart Failure Clinic [address] [place] [address] Inze Cook, SENIOR DRAFTER-NITRILES LAB TECHNICIAN [address] [place] [address] 12/07/2024 2:00 PM EDT Office [facility] Internal Medicine - Family Medicine [address] [place] [address] Michael Steiner DO [address] [place] [address] documented as of this encounter Visit Diagnoses [...] documented as of this encounter Care Teams Java Developer Analyst Relationship Specialty Start Date End Date Michael Steiner DO [address] [place] [address] PCP - General Internal Medicine 12/17/23 documented as of this encounter
--- OUTSIDE RECORDS SUMMARY | 2024-11-14 10:18 | XMS_ITS | Encounter Summary ---
Author Organization [facility] Address [facility]-[id number] [address] [place] [address] Care Team Providers Care Accountant Auditor Name Role Phone Vickyumair Michael Janae CABRERA Primary Care Provider [phone] Reason for Visit * Reason Onset Date Comments Med Refill 12/24/2023 Encounter Details Date Type Department Care Team (Late st Contact Info) Description 12/24/2023 Refill [facility] Internal Medicine - Family Medicine [address] [place] [address] Monica Johnston CMA Social History Tobacco Use Types Packs/Day Years Used Date Smoking Tobacco: Former Cigarettes 1 40 0 09/1981 - 09/2021 Smokeless Tobacco: Never Comments:5-6 cigerettes a da y Alcohol Use Standard Drinks/Week Comments Not Currently 0 (1 standard drink = 0.6 oz pur e alcohol) last use 15 years ago [facility] Utilities Answer Date Recorded In the past 12 months has th [employer], gas, oil, or water company threatened [...] week 07/25/2023 How often do you attend [facility] mental health services or roman catholic services? More than 4 times per year 07/25/2023 Do you belong to any clubs o r organizations such as orthodox groups, unions, fraternal or athletic groups, or [...] Description 11/28/2024 2:00 PM EDT Office Visit [facility] - Heart Failure Clinic [address] [place] [phone] Inez Cook, DERRICK OPERATOR-NYLON HOT WIRE CUTTER [address] [place] [address] 12/07/2024 2:00 PM EDT Office Visit [facility] Internal Medicine - Family Medicine [address] [place] [address] Michael Steiner DO [address] [place] [address] documented as of this encounter Goals Goal [...] documented as of this encounter Care Teams Accountant Auditor Relationship Specialty Start Date End Date Michael Steiner DO [address] [place] [address] PCP - General Internal Medicine 12/17/23 documented as of this encounter
--- OUTSIDE RECORDS SUMMARY | 2024-11-14 10:18 | XMS_ITS | Encounter Summary ---
Author Organization [facility] Address [facility] [place][id number] [address] [place] [address] Care Team Providers Care Coil Cleaner Name Role Phone Michael Steiner DO Primary Care Provider [phone] Encounter Details Date Type Department Care Team (Late st Contact Info) Description 12/24/2023 Orders Only [facility] Internal Medicine - Family Medicine [address] [place] [address] Michael Steiner DO [address] [place] [address] Social History Tobacco Use Types Packs/Day Years Used Date Smoking Tobacco: Former Cigarettes 1 40 0 09/1981 - 09/2021 Smokeless Tobacco: Never Comments:5-6 cigerettes a da y Alcohol Use Standard Drinks/Week Comments Not Currently 0 (1 standard drink = 0.6 oz pur e alcohol) last use 15 years ago [facility] Utilities Answer Date Recorded In the past 12 months has [employer], gas, oil, or water company threatened [...] often do you attend chur ch or shinto services? More than 4 times per year [...] Recorded Do you need help finding a [facility] career center and/or a [...] Description 11/28/2024 2:00 PM EDT Office Visit [facility] - Heart Failure Clinic [address] [place] [address] Inez Cook, FILM TESTS CHECKER-PLUG CUTTER [address] [place] [address] 12/07/2024 2:00 PM EDT Office Visit [facility] Internal Medicine - Family Medicine [address] [place] [address] Michael Steiner DO [address] [facility] [place] [address] documented as of this encounter Goals Goal [...] documented as of this encounter Care Teams Coil Cleaner Relationship Specialty Start Date End Date Michael Steiner DO [address] [place] [address] PCP - General Internal Medicine 12/17/23 documented as of this encounter
--- OUTSIDE RECORDS SUMMARY | 2024-11-14 10:18 | XMS_ITS | Encounter Summary ---
Author Organization [facility] tem Address [facility]-[id number] [address] [place] [address] Care Team Providers Care Research And Development Specialist Name Role Phone Michael Steiner DO Primary Care Provider Encounter Details Date Type Department Care Team (Late st Contact Info) Description 02/13/2023 Telephone [facility] - Wound Care Clinic [address] [place] [address] Brittnee Sharpe, RN Social History Tobacco Use [...] How often do you attend worship or methodist serv ices? Never 01/09/2020 Do [...] Recorded Do you need help finding a [employer] career center and/or a training program? No [...] Description 11/28/2024 2:00 PM EDT Office Visit [facility] - [facility] Failure Clinic [address] [facility] [place] [address] Inez Cook, BIOPROCESSING MANUFACTURING TECHNICIAN-PERFUME AND TOILET WATER MAKER [address] [place] [address] 12/07/2024 2:00 PM EDT Office Visit [facility] Internal Medicine - Family Medicine [address] [place] [address] Michael Steiner DO [address] [facility] [place] [address] documented as of this encounter Visit Diagnoses [...] documented as of this encounter Care Teams Research And Development Specialist Relationship Specialty Start Date End Date Michael Steiner DO [address] [facility] [place] [address] PCP - General Internal Medicine 12/17/23 documented as of this encounter
--- OUTSIDE RECORDS SUMMARY | 2024-11-14 10:18 | XMS_ITS | Encounter Summary ---
Author Organization [facility] Address [facility][id number] [address] [place] [address] Care Team Providers Care Bulb Brander Name Role Phone Michael Steiner DO Primary Care Provider [phone] Encounter Details Date Type Department Care Team (Late st Contact Info) Description 04/29/2023 Documentation [facility] Sign In [address] [place] [address] Pao Hernandez, GERMAN TUTOR-DRUM WORKER [address] [place] [address] Social History Tobacco Use Types [...] week 01/09/2020 How often do you attend yazidi or episcopal serv ices? Never 01/09/2020 Do you belong [...] Recorded Do you need help finding a [employer] career center and/or a training program? No [...] Cognitive Status X 04/29/2023 9:22 AM EST Jennifer Hamm OTR/Janae documented in this encounter Plan of Treatment Upcoming Encounters Date Type Department Care Team (Late st Contact Info) Description 11/28/2024 2:00 PM EDT Office Visit [facility] - Heart Failure Clinic [address] [place] [address] Inez Cook, GERMAN TUTOR-DRUM WORKER [address] [place] [address] 12/07/2024 2:00 PM EDT Office Visit [facility] Internal Medicine - Family Medicine [address] [facility] [place] [place] [address] Michael Steiner DO [address] [place] [address] documented as of this encounter Visit Diagnoses [...] documented as of this encounter Care Teams Bulb Brander Relationship Specialty Start Date End Date Michael Steiner DO [address] [place] [address] PCP - General Internal Medicine 12/17/23 documented as of this encounter
--- OUTSIDE RECORDS SUMMARY | 2024-11-14 10:18 | XMS_ITS | Encounter Summary ---
Author Organization [facility] Address [facility] [id number] [address] [place] [address] Care Team Providers Care Jointer Operator Name Role Phone Joansunshine Michael Janae CABRERA Primary Care Provider [phone] Reason for Visit * Reason Comments Med Refill Encounter Details Date Type Department Care Team (Late st Contact Info) Description 09/03/2022 Refill [facility] - Heart Failure Clinic [address] [place] [address] Cynthia Buchanan, AIRPLANE FLIGHT ATTENDANT SUPERVISOR-TECHNICAL SERVICE SPECIALIST [address] [place] [address] Chronic heart failure with preserved ejection fraction [...] week 01/09/2020 How often do you attend presybeterian or restoration serv ices? Never 01/09/2020 Do you belong to any clubs o r organizations such as presybeterian groups, unions, fraternal or athletic groups, or [...] Recorded Do you need help finding a [employer] career center and/or a training program? No [...] Description 11/28/2024 2:00 PM EDT Office Visit [facility] - Heart Failure Clinic [address] [place] [address] Inez Cook, AIRPLANE FLIGHT ATTENDANT SUPERVISOR-TECHNICAL SERVICE SPECIALIST [address] [place] [address] 12/07/2024 2:00 PM EDT Office Visit [facility] Internal Medicine - Family Medicine [address] [place] [address] Michael Steiner DO [address] [place] [address] documented as of this encounter Visit Diagnoses Diagnosis Chronic heart failure with preserved ejection fraction (CMS-HCC) Shortness of breath documented in this encounter Additional Health Concerns [...] documented as of this encounter Care Teams Jointer Operator Relationship Specialty Start Date End Date Michael Steiner DO [address] [place] [address] PCP - General Internal Medicine 12/17/23 documented as of this encounter
--- OUTSIDE RECORDS SUMMARY | 2024-11-14 10:18 | XMS_ITS | Encounter Summary ---
Author Organization [facility] s tem Address [facility]-[id number] [address] [place] [address] Care Team Providers Care Silk Winding Machine Operator Name Role Phone Michael Steiner DO Primary Care Provider [phone] Encounter Details Date Type Department Care Team (Late st Contact Info) Description 11/06/2023 Orders Only [facility] Internal Medicine - Family Medicine [address] [place] [address] Michael Steiner DO [address] [place] [address] Chronic heart failure with preserved ejection fraction ([facility]-HCC) (Primary Dx) Social History Tobacco Use Types Packs/Day Years Used Date Smoking Tobacco: Former Cigarettes 1 40 0 09/1981 - 09/2021 Smokeless Tobacco: Never Comments:5-6 cigerettes a da y Alcohol Use Standard Drinks/Week Comments Not Currently 0 (1 standard drink = 0.6 oz pur e alcohol) last use [address] [facility] Utilities Answer Date Recorded In the past 12 months has [employer], gas, oil, or water [employer] threatened to shut off services in your [...] often do you attend chur ch or moravian services? More than 4 times per year 07/25/2023 Do you belong to any clubs o r organizations such as baptism groups, unions, fraternal or athletic groups, or [...] Answer Date Recorded Total Score 0 11/02/2023 [facility] [place] of Occupat ional Health - Occupational Stress [...] Recorded Do you need help finding a [facility] career center and/or a training [...] Description 11/28/2024 2:00 PM EDT Office Visit [facility] - Heart Failure Clinic [address] [place] [address] Inez Cook, LARRY OPERATOR-RETAIL SUPPORT ASSOCIATE [address] [place] [address] 12/07/2024 2:00 PM EDT Office Visit [facility] Internal Medicine - Family Medicine [address] [place] [address] Michael Steiner, [address] [place] [address] documented as of this encounter Goals Goal Patient Goal Type Associated Problems Recent Progress Patient-Stated? Author home General Yes Jimena Snider LSW Note: Evaluation of progress towards goal: under assessment documented as of this encounter Visit Diagnoses Diagnosis Chronic heart failure with preserved ejection fraction (CMS-HCC)- Primary documented in this encounter Additional Health Concerns Infection Onset Date Last Indicated Resolved Time COVID-19 Rule-Out 12/17/2023 12/17/2023 12/17/2023 1:50 PM EDT Assessment Noted Time PHQ-9 Depression Total Score: 0 11/02/19 3:42 PM EDT documented as of this encounter Care Teams Silk Winding Machine Operator Relationship Specialty Start Date End Date Michael Steiner DO [address] [place] [address] PCP - General Internal Medicine 12/17/23 documented as of this encounter
--- OUTSIDE RECORDS SUMMARY | 2024-11-14 10:18 | XMS_ITS | Encounter Summary ---
Author Organization [facility] tem Address [id number] [address] [place] [address] Care Team Providers Care Shopper Name Role Phone Michael Steiner DO Primary Care Provider [phone] Reason for Referral * Misc (Routine) - Pending Review Specialty Diagnoses / Procedures Referred By Contac t Referred To Contact Diagnoses Chronic respiratory failure with hypoxia and hypercapnia (CMS-HCC) Chronic heart failure with preserved ejection fraction (CMS-HCC) Procedures Oxygen Therapy Michael Steiner DO [address] [place] [address] Phone: tel: fax: Referral ID Status Reason Start Date Expiration Date V isits Requested Visits Authorized [id number] Pending Review 12/30/2023 12/29/2024 1 1 Encounter Details Date Type Department Care Team (Late st Contact Info) Description 12/30/2023 Orders Only [facility] Internal Medicine - Family Medicine [address] [place] [address] Michael Steiner DO [address] [place] [address] Chronic respiratory failure with hypoxia and hypercapnia [...] e alcohol) last use 15 years ago [facility] Utilities Answer Date Recorded In the past 12 months has e [employer], gas, oil, or water [employer] threatened to shut off services in your [...] often do you attend chur ch or adventist services? More than 4 times per year [...] Answer Date Recorded Total Score 0 11/02/2023 [facility] [place] of Occupat ional Health - Occupational Stress [...] Recorded Do you need help finding a [employer] career center and/or a training program? No [...] Description 11/28/2024 2:00 PM EDT Office Visit [facility] - Heart Failure Clinic [address] [place] [address] Inez Cook, FIELD CHECKER-CARE MANAGEMENT ASSOCIATE [address] [place] [address] 12/07/2024 2:00 PM EDT Office Visit [facility] Internal Medicine - Family Medicine [address] [place] [address] Michael Steiner DO [address] [facility] [place] [address] documented as of this encounter Goals Goal Patient Goal Type Associated Problems Recent Progress Patient-Stated? Author home General Yes Jimena Snider LSW Note: Evaluation of progress towards goal: under assessment documented as of this encounter Visit Diagnoses Diagnosis Chronic respiratory failure with hypoxia and hypercapnia (CMS-HCC)- Primary Chronic heart failure with preserved ejection fraction (CMS-HCC) documented in this encounter Additional Health Concerns Assessment Noted Time PHQ-9 Depression Total Score: 0 11/02/19 3:42 PM EDT documented as of this encounter Care Teams Shopper Relationship Specialty Start Date End Date Michael Steiner DO [address] [facility] [place] [address] PCP - General Internal Medicine 12/17/23 documented as of this encounter
--- OUTSIDE RECORDS SUMMARY | 2024-11-14 10:18 | XMS_ITS | Encounter Summary ---
Author Organization [facility] Address [facility]-[id number] [address] [place] [address] Care Team Providers Care Technology And Engineering Teacher Name Role Phone JoanMichael gonsalez Janae CABRERA Primary Care Provider [phone] Reason for Visit * Reason Onset Date Comments Med Refill 12/02/2023 Encounter Details Date Type Department Care Team (Late st Contact Info) Description 12/02/2023 Refill [facility] Internal [facility] - Family Medicine [address] [place] [phone] Tosin Reyes CMA Social History Tobacco Use Types Packs/Day Years Used Date Smoking Tobacco: Former Cigarettes 1 40 0 09/1981 - 09/2021 Smokeless Tobacco: Never Comments:5-6 cigerettes a da y Alcohol Use Standard Drinks/Week Comments Not Currently 0 (1 standard drink = 0.6 oz pur e alcohol) last use 15 years ago [facility] Utilities Answer Date Recorded In the past 12 months has th [employer], gas, oil, or water company threatened [...] often do you attend [facility] or buddhist services? More than 4 times [...] Date Recorded Total Score 0 11/02/2023 [facility] - Occupational [...] 11/28/2024 2:00 PM EDT Office Visit [facility] - Heart Failure Clinic [address] [place] [address] Inez Cook, SPEAKER WIRER-SED MIDDLE SCHOOL TEACHER [address] [place] [address] 12/07/2024 2:00 PM EDT Office Visit [facility] Internal Medicine - Family Medicine [address] [place] [address] Michael Steiner DO [address] [facility] [place] [address] documented as of this encounter Goals Goal [...] documented as of this encounter Care Teams Technology And Engineering Teacher Relationship Specialty Start Date End Date Michael Steiner DO [address] [place] [phone] PCP - General Internal Medicine 12/17/23 documented as of this encounter
--- OUTSIDE RECORDS SUMMARY | 2024-11-14 10:18 | XMS_ITS | Encounter Summary ---
Author Organization [facility] [employer] [facility] tem Address [facility] [place]-[id number] [address] [place] [address] Care Team Providers Care College Hire Name Role Phone Joansunshine Michael Janae CABRERA Primary Care Provider [phone] Reason for Visit * Reason Comments Med Refill Encounter Details Date Type Department Care Team (Late st Contact Info) Description 03/05/2023 Refill [facility] - Heart Failure Clinic [address] [place] [address] Tristen Maldonado MD [address] [place] [address] Shortness of breath; Chronic heart failure with preserved ejection fraction ([facility]) Social History Tobacco Use Types Packs/Day Years [...] week 01/09/2020 How often do you attend caodaism or hindu serv ices? Never 01/09/2020 Do [...] Recorded Do you need help finding a [employer] career center and/or a training program? No [...] Description 11/28/2024 2:00 PM EDT Office Visit [facility] - Heart Failure Clinic [address] [place] [address] Inez Cook, ANIMATION DIRECTOR-SWIMMING POOL INSTALLER AND SERVICER [address] [place] [address] 12/07/2024 2:00 PM EDT Office Visit [facility] Internal Medicine - Family Medicine [address] [place] [address] Michael Steiner DO [address] [place] [address] documented as of this encounter Visit Diagnoses [...] documented as of this encounter Care Teams College Hire Relationship Specialty Start Date End Date Michael Steiner DO [address] [place] [address] PCP - General Internal Medicine 12/17/23 documented as of this encounter
--- OUTSIDE RECORDS SUMMARY | 2024-11-14 10:18 | XMS_ITS | Encounter Summary ---
Author Organization [facility] Address [id number] [address] [place] [address] Care Team Providers Care Swimming Pool Installer And Servicer Name Role Phone JoanMichael gonsalez Janae CABRERA Primary Care Provider [phone] Reason for Visit * Reason Comments Med Refill Encounter Details Date Type Department Care Team (Late st Contact Info) Description 11/27/2021 Refill [facility] Card[facility] [address] [place] [phone] Tristen Maldonado MD [address] [place] [address] Med Refill Social History Tobacco Use Types [...] week 01/09/2020 How often do you attend jew or anglican serv ices? Never 01/09/2020 Do you belong to any clubs o r organizations such as jew groups, unions, fraternal or athletic groups, or [...] Recorded Do you need help finding a [employer] career center and/or a training program? No [...] Description 11/28/2024 2:00 PM EDT Office Visit [facility] - Heart Failure Clinic [address] [place] [place] [address] Inez Cook, FLAT SORTING MACHINE CLERK-SKILLED HELPER [address] [place] [address] 12/07/2024 2:00 PM EDT Office Visit [facility] - Family Medicine [address] [place] [address] Michael Steiner DO [address] [place] [address] documented as of this encounter Visit Diagnoses [...] of this encounter Care Teams Swimming Pool Installer And Servicer Relationship Specialty Start Date End Date Michael Steiner DO [address] [place] [address] PCP - General Internal Medicine 12/17/23 documented as of this encounter
--- OUTSIDE RECORDS SUMMARY | 2024-11-14 10:18 | XMS_ITS | Encounter Summary ---
Author Organization [facility] Address [id number] [address] [place] [address] Care Team Providers Care Scrapper Name Role Phone Michael Steiner DO Primary Care Provider [phone] Encounter Details Date Type Department Care Team (Late st Contact Info) Description 11/23/2023 Orders Only [facility] Internal Medicine - Family Medicine [address] [place] [address] Michael Steiner DO [address] [place] [address] Social History Tobacco Use Types Packs/Day Years Used Date Smoking Tobacco: Former Cigarettes 1 40 0 09/1981 - 09/2021 Smokeless Tobacco: Never Comments:5-6 cigerettes a da y Alcohol Use Standard Drinks/Week Comments Not Currently 0 (1 standard drink = 0.6 oz pur e alcohol) last use 15 years ago [facility] Utilities Answer Date Recorded In the past 12 months has [employer], gas, oil, or water company threatened [...] often do you attend chur ch or evangelical services? More than 4 times per year 07/25/2023 Do you belong to any clubs o r organizations such as restorationism groups, unions, fraternal or athletic groups, or [...] Answer Date Recorded Total Score 0 11/02/2023 [facility] Occupat ional Health - Occupational [...] Recorded Do you need help finding a [facility] career center and/or a training program? No [...] Description 11/28/2024 2:00 PM EDT Office Visit [facility] - Heart Failure Clinic [address] [place] [address] Inez Cook, WELL SITE DRILLING ENGINEER-FIELD ARTILLERY BASIC [address] [place] [address] 12/07/2024 2:00 PM EDT Office Visit [facility] Internal Medicine - Family Medicine [address] [place] [address] Michael Steiner DO [address] [facility] [place] [address] documented as of this encounter Goals Goal [...] documented as of this encounter Care Teams Scrapper Relationship Specialty Start Date End Date Michael Steiner DO [address] [place] [phone] PCP - General Internal Medicine 12/17/23 documented as of this encounter
--- OUTSIDE RECORDS SUMMARY | 2024-11-14 10:18 | XMS_ITS | Encounter Summary ---
Author Organization [facility] Address [facility]-[id number] [address] [place] [address] Care Team Providers Care Disease Case Manager Rn Name Role Phone JoanMichael gonsalez Janae CABRERA Primary Care Provider [phone] Reason for Visit * Reason Onset Date Comments Med Refill 11/23/2023 Encounter Details Date Type Department Care Team (Late st Contact Info) Description 11/23/2023 Refill [facility] Internal Medicine - Family Medicine [address] [place] [address] Sofya Coe CMA Social History Tobacco Use Types Packs/Day Years Used Date Smoking Tobacco: Former Cigarettes 1 40 0 09/1981 - 09/2021 Smokeless Tobacco: Never Comments:5-6 cigerettes a da y Alcohol Use Standard Drinks/Week Comments Not Currently 0 (1 standard drink = 0.6 oz pur e alcohol) last use 15 years ago [facility] Utilities Answer Date Recorded In [...] week 07/25/2023 How often do you attend [facility] or jehovah's witness services? More than 4 times per year [...] Answer Date Recorded Total Score 0 11/02/2023 [facility] Occupat ional Health - Occupational [...] Do you need help finding a [facility] career center and/or a training program? [...] Description 11/28/2024 2:00 PM EDT Office Visit [facility] - Heart Failure Clinic [address] [place] [address] Inez Cook, LIFE ENRICHMENT MANAGER-GOPHERMAN [address] [place] [address] 12/07/2024 2:00 PM EDT Office Visit [facility] Internal Medicine - Family Medicine [address] [place] [address] Michael Steiner DO [address] [facility] [place] [address] documented as of this encounter Goals Goal [...] documented as of this encounter Care Teams Disease Case Manager Rn Relationship Specialty Start Date End Date Michael Steiner DO [address] [place] [address] PCP - General Internal Medicine 12/17/23 documented as of this encounter
--- OUTSIDE RECORDS SUMMARY | 2024-11-14 10:18 | XMS_ITS | Encounter Summary ---
Author Organization [employer] s tem Address [facility]-[id number] [address] [place] [address] Care Team Providers Care Launderette Attendant Name Role Phone Michael Steiner DO Primary Care Provider [phone] Encounter Details Date Type Department Care Team (Late st Contact Info) Description 11/06/2023 [facility]phone [facility] [address] [place] [address] PrestonMonica lo, DURAL MECHANIC Social History Tobacco Use Types Packs/Day Years Used Date Smoking Tobacco: Former Cigarettes 1 40 0 09/1981 - 09/2021 Smokeless Tobacco: Never Comments:5-6 cigerettes a da y Alcohol Use Standard Drinks/Week Comments Not Currently 0 (1 standard drink = 0.6 oz pur e alcohol) last use 15 years ago [facility] Utilities Answer Date Recorded In the past 12 months has [employer], gas, oil, or water [employer] threatened to shut off services in your [...] week 07/25/2023 How often do you attend [facility] or religion services? More than 4 times [...] Recorded Do you need help finding a [facility] career center and/or a training program? No [...] Description 11/28/2024 2:00 PM EDT Office Visit [facility] - Heart Failure Clinic [address] [place] [address] Inez Cook, SALESPERSON FLORIST SUPPLIES-LUNCHROOM MONITOR [address] [place] [address] 12/07/2024 2:00 PM EDT Office Visit [facility] Internal Medicine - Family Medicine [address] [place] [address] Michael Steiner DO [address] [facility] [place] [address] documented as of this encounter Goals Goal [...] documented as of this encounter Care Teams Launderette Attendant Relationship Specialty Start Date End Date Michael Steiner DO [address] [facility], [place] [address] PCP - General Internal Medicine 12/17/23 documented as of this encounter
--- OUTSIDE RECORDS SUMMARY | 2024-11-14 10:18 | XMS_ITS | Encounter Summary ---
Author Organization [facility] Address [id number] [address] [place] [address] Care Team Providers Care Data Center Technician Name Role Phone Michael Steiner DO Primary Care Provider [phone] Reason for Visit * Reason Comments Med Refill Encounter Details Date Type Department Care Team (Late st Contact Info) Description 06/10/2023 Refill [facility] Pulmonary/Sleep Medicine [address] [address] Grace Meadows DO [address] [address] Social History Tobacco Use Types [...] week 01/09/2020 How often do you attend orthodox or holiness serv ices? Never 01/09/2020 Do [...] Recorded Do you need help finding a [employer] career center and/or a training program? No [...] Visit [facility] - Heart Failure Clinic [address] [place] [address] Inez Cook, GENERAL WAREHOUSE WORKER-TRACK MANAGER [address] [place] [address] 12/07/2024 2:00 PM EDT Office Visit [facility] Internal Medicine - Family Medicine [address] [place] [address] Michael Steiner DO [address] [place] [address] documented as of this encounter Visit Diagnoses Not on filedocumented in this encounter Additional Health Concerns Infection Onset Date Last Indicated Resolved Time COVID-19 Rule-Out 07/24/2023 07/24/2023 07/24/2023 10:44 PM EDT COVID-19 Rule-Out 07/25/2023 07/25/2023 07/25/2023 7:25 PM EDT COVID-19 Rule-Out 12/17/2023 12/17/2023 12/17/2023 1:50 PM EDT Assessment Noted Time PHQ-9 Depression Total Score: 0 06/01/19 1:58 PM EST documented as of this encounter Care Teams Data Center Technician Relationship Specialty Start Date End Date Michael Steiner DO [address] [facility] [place] [address] PCP - General Internal Medicine 12/17/23 documented as of this encounter
--- OUTSIDE RECORDS SUMMARY | 2024-11-14 10:18 | XMS_ITS | Encounter Summary ---
Author Organization [facility] Address [facility] [id number] [address] [place] [address] Care Team Providers Care Wallpaper Printer Name Role Phone Joansunshine Michael Janae CABRERA Primary Care Provider [phone] Reason for Visit * Reason Onset Date Comments Med Refill 08/27/2020 Encounter Details Date Type Department Care Team (Late st Contact Info) Description 08/27/2020 Refill [facility] [address] [place] [address] Mahsa Fam RN Med Refill Social History [...] week 01/09/2020 How often do you attend spiritism or temple serv ices? Never 01/09/2020 Do you belong to any clubs o r organizations such as spiritism groups, unions, fraternal or athletic groups, or [...] Do you need help finding a [employer] career center and/or a training program? No [...] 08/27/2020 12:08 PM EDT Received p/c from [facility] that pt needs refill for atorvastatin 80 mg and Order for Knee high support stockings documented in this encounter Plan of Treatment Upcoming Encounters Date Type Department Care Team (Late st Contact Info) Description 11/28/2024 2:00 PM EDT Office Visit [facility] - Heart Failure Clinic [address] [place] [phone] Inez Cook, STRINGED INSTRUMENT TUNER-CARD HANGER [address] [place] [address] 12/07/2024 2:00 PM EDT Office Visit [facility] Internal Medicine - Family Medicine [address] [place] [address] Michael Steiner DO [address] [place] [address] documented as of this encounter Visit Diagnoses Diagnosis ASCVD (arteriosclerotic cardiovascular disease)- Primary Unspecified cardiovascular disease NSTEMI (non-ST elevated myocardial infarction) ([facility]) Acute myocardial infarction, subendocardial infarction, episode of care unspecified documented in this encounter Additional Health Concerns [...] documented as of this encounter Care Teams Wallpaper Printer Relationship Specialty Start Date End Date Michael Steiner DO [address] [place] [address] PCP - General Internal Medicine 12/17/23 documented as of this encounter
--- OUTSIDE RECORDS SUMMARY | 2024-11-14 10:18 | XMS_ITS | Encounter Summary ---
Author Organization [employer] s tem Address [id number] [address] [place] [address] Care Team Providers Care Hose Tester Name Role Phone Michael Steiner DO Primary Care Provider [phone] Encounter Details Date Type Department Care Team (Late st Contact Info) Description 10/27/2023 Orders Only [facility] Internal Medicine - Family Medicine [address] [place] [address] Michael Steiner DO [address] [place] [address] Closed wedge compression fracture of T6 vertebra with routine healing Social History Tobacco Use Types Packs/Day Years Used Date Smoking Tobacco: Former Cigarettes 1 40 0 09/1981 - 09/2021 Smokeless Tobacco: Never Comments:5-6 cigerettes a da y Alcohol Use Standard Drinks/Week Comments Not Currently 0 (1 standard drink = 0.6 oz pur e alcohol) last use 15 years ago [facility] Utilities Answer Date Recorded In the past 12 months has [employer], gas, oil, or water company threatened to [...] often do you attend chur ch or latter day services? More than 4 times per year [...] Answer Date Recorded Total Score 0 09/30/2023 [facility] Occupat ional Health - Occupational [...] Description 11/28/2024 2:00 PM EDT Office Visit [facility] - Heart Failure Clinic [address] [place] [address] Inez Cook, HIGH SCHOOL LEARNING SUPPORT TEACHER-DOCUMENT REVIEW SPECIALIST [address] [place] [address] 12/07/2024 2:00 PM EDT Office Visit [facility] Internal Medicine - Family Medicine [address] [place] [address] Michael Steiner, [address] [place] [address] documented as of this encounter Goals Goal [...] with routine healing documented in this encounter Additional Health Concerns Infection Onset Date Last Indicated Resolved Time COVID-19 Rule-Out 12/17/2023 12/17/2023 12/17/2023 1:50 PM EDT Assessment Noted Time PHQ-9 Depression Total Score: 0 09/30/19 1:38 PM EDT documented as of this encounter Care Teams Hose Tester Relationship Specialty Start Date End Date Michael Steiner DO [address] [place] [address] PCP - General Internal Medicine 12/17/23 documented as of this encounter
--- OUTSIDE RECORDS SUMMARY | 2024-11-14 10:18 | XMS_ITS | Encounter Summary ---
Author Organization [facility] tem Address [facility]-[id number] [address] [place] [address] Care Team Providers Care Cake Wrapper Name Role Phone Michael Steiner DO Primary Care Provider [phone] Encounter Details Date Type Department Care Team (Late st Contact Info) Description 02/13/2023 Telephone [facility] - Wound Care Outpatient [address] [place] [address] Rosangela Tomlinson Social History Tobacco Use Types [...] week 01/09/2020 How often do you attend moravian or restoration serv ices? Never 01/09/2020 Do [...] Recorded Do you need help finding a [employer] center and/or a training program? No 01/09/2020 [...] Description 11/28/2024 2:00 PM EDT Office Visit [facility] - Heart Failure Clinic [address] [place] [address] Inez Cook, SHOT TUBE MACHINE TENDER-PORTFOLIO DIRECTOR [address] [place] [address] 12/07/2024 2:00 PM EDT Office Visit [facility]icians Internal Medicine - Family Medicine [address] [place] [address] Michael Steiner DO [address] [place] [address] documented as of this encounter Visit Diagnoses [...] documented as of this encounter Care Teams Cake Wrapper Relationship Specialty Start Date End Date Michael Steiner DO [address] [place] [address] PCP - General Internal Medicine 12/17/23 documented as of this encounter
--- OUTSIDE RECORDS SUMMARY | 2024-11-14 10:18 | XMS_ITS | Encounter Summary ---
Author Organization [employer] Address [facility] [place]-[id number] [address] [place] [address] Care Team Providers Care Weight And Balance Control Agent Name Role Phone Michael Steiner DO Primary Care Provider [phone] Encounter Details Date Type Department Care Team (Late st Contact Info) Description 11/04/2021 [facility]phone [facility] [address] [address] Juli Mixon RN Social History [...] How often do you attend nondenominational or sikhism serv ices? Never 01/09/2020 Do [...] Recorded Do you need help finding a [employer] center and/or a training program? No 01/09/2020 [...] Description 11/28/2024 2:00 PM EDT Office Visit [facility] - Heart Failure Clinic [address] [place] [address] Inez Cook, NETWORK ADMINISTRATOR-CLIENT EXPERIENCE CONSULTANT [address] [place] [address] 12/07/2024 2:00 PM EDT Office Visit [facility] Internal Medicine - Family Medicine [address] [place] [address] Michael Steiner DO [address] [place] [address] documented as of this encounter Visit Diagnoses [...] documented as of this encounter Care Teams Weight And Balance Control Agent Relationship Specialty Start Date End Date Michael Steiner DO [address] [place] [address] PCP - General Internal Medicine 12/17/23 documented as of this encounter
--- OUTSIDE RECORDS SUMMARY | 2024-11-14 10:18 | XMS_ITS | Encounter Summary ---
Author Organization [facility] Address [id number] [address] [place] [address] Care Team Providers Care Heading Pinner Name Role Phone Michael Steiner DO Primary Care Provider [phone] Encounter Details Date Type Department Care Team (Late st Contact Info) Description 09/04/2022 [facility] [address] [facility] [address] [place] [address] Cynthia Buchanan, SHOCK ABSORBER INSTALLER-SUPERVISOR DENTURE DEPARTMENT [address] [place], [place] [id number] Social History Tobacco Use Types Packs/Day Years [...] week 01/09/2020 How often do you attend confucianist or mandaeism serv ices? Never 01/09/2020 Do you belong to any clubs o r organizations such as confucianist groups, unions, fraternal or athletic groups, or [...] Recorded Do you need help finding a [employer] career center and/or a training program? No [...] Description 11/28/2024 2:00 PM EDT Office Visit [facility] - Heart Failure Clinic [address] [place] [address] Inez Cook, SHOCK ABSORBER INSTALLER-SUPERVISOR DENTURE DEPARTMENT [address] [place] [address] 12/07/2024 2:00 PM EDT Office Visit [facility] Physicians Internal Medicine - Family Medicine [address] [place] [address] Michael Steiner, DO [address] [facility] [place] [address] documented as of this encounter Visit Diagnoses [...] documented as of this encounter Care Teams Heading Pinner Relationship Specialty Start Date End Date Michael Steiner DO [address] [place] [address] PCP - General Internal Medicine 12/17/23 documented as of this encounter
--- OUTSIDE RECORDS SUMMARY | 2024-11-14 10:18 | XMS_ITS | Encounter Summary ---
Author Organization [facility] Sys tem Address [id number] [address] [place] [address] Care Team Providers Care Culvert Installer Name Role Phone Michael Steiner DO Primary Care Provider [phone] Encounter Details Date Type Department Care Team (Late st Contact Info) Description 09/03/2022 [facility] [address] [facility] [address] [place] [phone] Cynthia Buchanan, RESOURCING ADVISOR-GREY ROLL WORKER [address] [place], [place] [phone] Social History Tobacco Use Types Packs/Day Years [...] How often do you attend mu-ism or faith serv ices? Never 01/09/2020 Do you belong [...] Recorded Do you need help finding a [employer] career center and/or a training program? No [...] Description 11/28/2024 2:00 PM EDT Office Visit [facility] - [facility] Failure Clinic [address] [place] [address] Inez Cook, RESOURCING ADVISOR-GREY ROLL WORKER [address] [place] [address] 12/07/2024 2:00 PM EDT Office Visit [facility] Internal Medicine - Family Medicine [address] [place] [phone] Mihcael Steiner, DO [address] [facility] [place] [address] documented as of this encounter Visit Diagnoses [...] documented as of this encounter Care Teams Culvert Installer Relationship Specialty Start Date End Date Michael Steiner DO [address] [place] [address] PCP - General Internal Medicine 12/17/23 documented as of this encounter
--- OUTSIDE RECORDS SUMMARY | 2024-11-14 10:18 | XMS_ITS | Encounter Summary ---
Author Organization [employer] tem Address [facility] [place]-[id number] [address] [place] [address] Care Team Providers Care Student Loan Counselor Name Role Phone VickyumairMichael DO Primary Care Provider [phone] Encounter Details Date Type Department Care Team (Latest Contact Info) Description 11/07/2024 Travel Social History Tobacco Use Types Packs/Day Years [...] In the past 12 months has e electric, gas, oil, or water company [...] often do you attend chur ch or jainism services? More than 4 times per year 07/25/2023 Do you belong to any clubs o r organizations such as latter day groups, unions, fraternal or athletic groups, or [...] Answer Date Recorded Total Score 0 11/07/2024 [facility] Occupat ional Health - [...] Description 11/28/2024 2:00 PM EDT Office Visit [facility] - Heart Failure Clinic [address] [place] [address] Inez Cook, BRANCH OFFICE MANAGER-ADHESIVE PRIMER [address] [place] [address] 12/07/2024 2:00 PM EDT Office Visit [facility] Internal Medicine - Family Medicine [address] [place] [address] Michael Steiner DO [address] [place] [address] documented as of this encounter Goals Goal [...] documented as of this encounter Care Teams Student Loan Counselor Relationship Specialty Start Date End Date Michael Steiner DO [address] [place] [address] PCP - General Internal Medicine 12/17/23 documented as of this encounter
--- OUTSIDE RECORDS SUMMARY | 2024-11-14 10:18 | XMS_ITS | Encounter Summary ---
Author Organization [facility] Address [id number] [address] [place] [address] Care Team Providers Care Package Center Supervisor Name Role Phone Michael Steiner DO Primary Care Provider [phone] Encounter Details Date Type Department Care Team (Late st Contact Info) Description 12/02/2023 Orders Only [facility] Internal Medicine - Family Medicine [address] [place] [address] Michael Steiner DO [address] [place] [address] Social History Tobacco Use Types Packs/Day Years Used Date Smoking Tobacco: Former Cigarettes 1 40 0 09/1981 - 09/2021 Smokeless Tobacco: Never Comments:5-6 cigerettes a da y Alcohol Use Standard Drinks/Week Comments Not Currently 0 (1 standard drink = 0.6 oz pur e alcohol) last use 15 years ago [facility] Utilities Answer Date Recorded In the past 12 months has [employer] electric, gas, oil, or water company threatened [...] Answer Date Recorded Total Score 0 11/02/2023 [facility] of Occupat ional Health - Occupational [...] Recorded Do you need help finding a [facility] career center and/or a [...] Heart Failure Clinic [address] [place] [address] Inez Cook, HOUSING PROJECT MANAGER-VEGETABLE HANDLER [address] [place] [address] 12/07/2024 2:00 PM EDT Office Visit [facility] Internal Medicine - Family Medicine [address] [place] [address] Michael Steiner DO [address] [facility] [place] [address] documented as of this encounter Goals Goal [...] documented as of this encounter Care Teams Package Center Supervisor Relationship Specialty Start Date End Date Michael Steiner DO [address] [place] [phone] PCP - General Internal Medicine 12/17/23 documented as of this encounter
--- OUTSIDE RECORDS SUMMARY | 2024-11-14 10:18 | XMS_ITS | Encounter Summary ---
Author Organization [facility] s tem Address [facility][id number] [address] [place] [address] Care Team Providers Care Child Care Lead Teacher Name Role Phone Michael Steiner DO Primary Care Provider [phone] Encounter Details Date Type Department Care Team (Late st Contact Info) Description 11/20/2023 Orders Only [facility] Internal Medicine - Family Medicine [address] [place] [address] Michael Steiner DO [address] [place] [address] Social History Tobacco Use Types Packs/Day Years Used Date Smoking Tobacco: Former Cigarettes 1 40 0 09/1981 - 09/2021 Smokeless Tobacco: Never Comments:5-6 cigerettes a da y Alcohol Use Standard Drinks/Week Comments Not Currently 0 (1 standard drink = 0.6 oz pur e alcohol) last use 15 years ago [facility] Utilities Answer Date Recorded In the past 12 months has [employer] electric, gas, oil, or water company threatened [...] often do you attend chur ch or alevism services? More than 4 times per year [...] Answer Date Recorded Total Score 0 11/02/2023 [facility] of Occupat ional [...] Heart Failure Clinic [address] [place] [phone] Inez Cook, LIBRARY SUPERVISOR-COSMETIC SALES [address] [place] [address] 12/07/2024 2:00 PM EDT Office Visit [facility] Internal Medicine - Family Medicine [address] [place] [address] Michael Steiner DO [address] [facility] [place] [address] documented as of this encounter Goals Goal [...] documented as of this encounter Care Teams Child Care Lead Teacher Relationship Specialty Start Date End Date Michael Steiner DO [address] [place] [phone] PCP - General Internal Medicine 12/17/23 documented as of this encounter
--- OUTSIDE RECORDS SUMMARY | 2024-11-14 10:18 | XMS_ITS | Encounter Summary ---
Author Organization [employer] Sys tem Address [id number] [address] [place] [address] Care Team Providers Care Master Of Ceremonies Name Role Phone Obdulia Michael Janae CABRERA Primary Care Provider [phone] Reason for Visit * Reason Onset Date Comments Leg Swelling 07/21/2022 Encounter Details Date Type Department Care Team (Late st Contact Info) Description 07/21/2022 Telephone [facility] Cardiology [address] [place] [address] Mahsa Fam RN Leg Swelling [...] How often do you attend jew or christianity serv ices? Never 01/09/2020 Do you belong [...] Recorded Do you need help finding a [employer] career center and/or a training program? No [...] Description 11/28/2024 2:00 PM EDT Office Visit [facility] - Heart Failure Clinic [address] [place] [address] Inez Cook, CLIENT RESOURCE SPECIALIST-MATERIAL DISTRIBUTOR [address] [place] [address] 12/07/2024 2:00 PM EDT Office Visit [facility] Internal Medicine - Family Medicine [address] [place] [phone] Michael Steiner DO [address] [place] [address] documented as of this encounter Results * (ABNORMAL) Basic Metabolic Panel (07/25/2022 11:24 AM EDT) [facility] Sodium 138 134 - 146 mmol/L 07/25/2022 3:16 PM EDT [facility] Potassium, Bld 2.8(L) 3.5 - 5.0 mmol/L 07/25/2022 3:16 PM EDT [facility] Chloride 93(L) 98 - 109 mmol/L 07/25/2022 3:16 PM EDT [facility] CO2 29 22 - 32 mmol/L 07/25/2022 3:16 PM EDT [facility] Anion gap 16(H) 5 - 15 mmol/L 07/25/2022 3:16 PM EDT [facility] BUN 29(H) 5 - 23 mg/dL 07/25/2022 3:16 PM EDT [facility] Creatinine 2.20(H) 0.40 - 1.00 mg/dL 07/25/2022 3:16 PM EDT [facility] Comment:METHOD TRACEABLE TO IDMS STANDARD Glucose 135(H) 65 - 99 mg/dL 07/25/2022 3:16 PM EDT [facility] Calcium 10.8(H) 8.5 - 10.5 mg/dL 07/25/2022 3:16 PM EDT [facility] eGFR (CKD-EPI)non-ra ce dependent 25(L) >59 ml/min/1.7 3sq.m 07/25/2022 3:16 PM EDT [facility] Comment: Reported eGFR is based on the CKD-EPI 2020 equation that does not use a race coefficient. PLASMA 07/25/2022 11:2 4 AM EDT 07/25/2022 11:25 AM EDT us Nikolay Garcia PA-C LAB BLOOD ORDERABLES Fin al Result SKYLER [facility] [address] [place] [address] documented in this encounter Visit Diagnoses Diagnosis Shortness of breath- Primary documented in this encounter Additional Health [...] documented as of this encounter Care Teams Master Of Ceremonies Relationship Specialty Start Date End Date Michael Steiner DO [address] [place] [address] PCP - General Internal Medicine 12/17/23 documented as of this encounter
--- OUTSIDE RECORDS SUMMARY | 2024-11-14 10:19 | XMS_ITS | Encounter Summary ---
Author Organization [facility] Address [address] [place] [address] Care Team Providers Care Locum Tenens Psychiatrist Name Role Phone Michael Steiner MD Primary Care Provider [phone] Encounter Details Date Type Department Care Team (Late st Contact Info) Description 03/17/2024 Abstract [facility] [address] [place] [phone] Patricia Mcclure MA Social History Tobacco Use [...] EST Office Visit [facility] [address] [place] [phone] Sydnie Guerrero DO [address] [place] [address] documented as of this encounter Visit Diagnoses Not on filedocumented in this encounter Care Teams Locum Tenens Psychiatrist Relationship Specialty Start Date End Date Michael Steiner MD PCP - General Internal Medicine 08/11/23 documented as of this encounter
--- OUTSIDE RECORDS SUMMARY | 2024-11-14 10:19 | XMS_ITS | Encounter Summary ---
Author Organization [employer] s tem Address [id number] [address] [place] [address] Care Team Providers Care Chief Supply Chain Officer Name Role Phone Michael Steiner DO Primary Care Provider [phone] Encounter Details Date Type Department Care Team (Late st Contact Info) Description 09/04/2024 Orders Only [facility] Internal Medicine - Family Medicine [address] [place] [address] Michael Steiner DO [address] [place] [address] Social History Tobacco Use Types Packs/Day Years Used Date Smoking Tobacco: Former Cigarettes 1 40 0 09/1981 - 09/2021 Smokeless Tobacco: Never Comments:5-6 cigerettes a da y Alcohol Use Standard Drinks/Week Comments Not Currently 0 (1 standard drink = 0.6 oz pur e alcohol) last use 15 years ago [facility] Utilities Answer Date Recorded In the past 12 months has [employer] electric, gas, oil, or water company threatened [...] Answer Date Recorded Total Score 0 07/07/2024 [facility] of Occupat ional Health - [...] Do you need help finding a [facility] career center and/or a training [...] 2:00 PM EDT Office Visit [facility] - Heart Failure Clinic [address] [place] [phone] Inez Cook, TERRAZZO TILE MAKER-AERONAUTICS TEACHER [address] [place] [address] 12/07/2024 2:00 PM EDT Office Visit [facility] Internal Medicine - Family Medicine [address] [place] [phone] Michael Steiner DO [address] [facility] [place] [address] documented as of this encounter Goals Goal [...] documented as of this encounter Care Teams Chief Supply Chain Officer Relationship Specialty Start Date End Date Michael Steiner DO [address] [place] [address] PCP - General Internal Medicine 12/17/23 documented as of this encounter
--- OUTSIDE RECORDS SUMMARY | 2024-11-14 10:19 | XMS_ITS | Encounter Summary ---
Author Organization [facility] tem Address [id number] [address] [place] [address] Care Team Providers Care Polymerization Oven Operator Name Role Phone Michael Steiner DO Primary Care Provider [phone] Encounter Details Date Type Department Care Team (Late st Contact Info) Description 11/04/2021 Orders Only [facility] - Radiation Oncology [address] [place] [address] Renae Gallegos MA NSTEMI (non-ST elevated myocardial infarction) ([facility]) (Primary Dx); ASCVD (arteriosclerotic cardiovascular [...] week 01/09/2020 How often do you attend zoroastrianism or sikh serv ices? Never 01/09/2020 Do you belong to any clubs o r organizations such as zoroastrianism groups, unions, fraternal or athletic groups, or [...] Recorded Do you need help finding a [employer] career center and/or a training program? No [...] 2:00 PM EDT Office Visit [facility] - Heart Failure Clinic [address] [facility] [place] [address] Inez Cook, STRATEGIC INSIGHTS LEAD-STUDENT RECORDS COORDINATOR [address] [place] [address] 12/07/2024 2:00 PM EDT Office Visit [facility] Internal Medicine - Family Medicine [address] [place] [address] Michael Steiner, DO [address] [place] [address] documented as of this encounter Results * B-type natriuretic peptide (11/04/2021 12:38 PM EDT) BNP 89 <100.0 pg/mL 11/04/2021 3:51 PM EDT [facility] PLASMA 11/04/2021 12:3 8 PM EDT 11/04/2021 12:39 PM EDT us Grupo Nguyen MD LAB BLOOD ORDERABLES Final Res ult [facility] [address] [place] [address] * Comprehensive metabolic panel (11/04/2021 12:38 PM EDT) Sodium 141 134 - 146 mmol/L 11/04/2021 2:55 PM EDT [facility] Potassium, Bld 4.1 3.5 - 5.0 mmol/L 11/04/2021 2:55 PM EDT [facility] Chloride 104 98 - 109 mmol/L 11/04/2021 2:55 PM EDT [facility] CO2 28 22 - 32 mmol/L 11/04/2021 2:55 PM EDT [facility] Anion gap 9 5 - 15 mmol/L 11/04/2021 2:55 PM EDT [facility] BUN 12 5 - 23 mg/dL 11/04/2021 2:55 PM EDT [facility] Creatinine 0.84 0.40 - 1.00 mg/dL 11/04/2021 2:55 PM EDT [facility] Comment:METHOD TRACEABLE TO IDMS STANDARD Glucose 94 65 - 99 mg/dL 11/04/2021 2:55 PM EDT [facility] Calcium 9.1 8.5 - 10.5 mg/dL 11/04/2021 2:55 PM EDT [facility] Total Protein 7.0 6.0 - 8.0 g/dL 11/04/2021 2:55 PM EDT [facility] Albumin 4.0 3.2 - 5.3 g/dL 11/04/2021 2:55 PM EDT [facility] Alkaline Phosphatase 56 39 - 130 U/L 11/04/2021 2:55 PM EDT [facility] AST 16 0 - 41 U/L 11/04/2021 2:55 PM EDT [facility] ALT 14 0 - 31 U/L 11/04/2021 2:55 PM EDT [facility] Total bilirubin 0.3 0.3 - 1.2 mg/dL 11/04/2021 2:55 PM EDT [facility] GFR MDRD Non Af Amer >60 >59 ml/min/1.7 3sq.m 11/04/2021 2:55 PM EDT [facility] GFR MDRD Af Amer >60 >59 ml/min/1.7 3sq.m 11/04/2021 2:55 PM EDT [facility] PLASMA 11/04/2021 12:3 8 PM EDT 11/04/2021 12:39 PM EDT us Grupo Nguyen MD LAB BLOOD ORDERABLES Final Res ult [facility] [address] [place] [address] documented in this encounter Visit Diagnoses Diagnosis NSTEMI (non-ST elevated myocardial infarction) ([facility])- Primary Acute myocardial infarction, subendocardial infarction, episode of care unspecified ASCVD (arteriosclerotic cardiovascular disease) Unspecified cardiovascular disease documented in this encounter Additional Health Concerns [...] documented as of this encounter Care Teams Polymerization Oven Operator Relationship Specialty Start Date End Date Michael Steiner DO [address] [place] [address] PCP - General Internal Medicine 12/17/23 documented as of this encounter
--- OUTSIDE RECORDS SUMMARY | 2024-11-14 10:19 | XMS_ITS | Encounter Summary ---
Author Organization [facility] Address [facility]-[id number] [address] [place] [address] Care Team Providers Care Secretary Bookkeeper Name Role Phone JoanMichael gonsalez Janae CABRERA Primary Care Provider [phone] Reason for Visit * Reason Onset Date Comments Transition Of Care 09/01/2023 Encounter Details Date Type Department Care Team (Late st Contact Info) Description 09/01/2023 [facility]phone [facility] Medicine [address] [facility] [facility] [place] [phone] Poornima Bonner, VICTOR M Transition Of Care Social History Tobacco Use Types Packs/Day Years Used Date Smoking Tobacco: Former Cigarettes 1 40 0 09/1981 - 09/2021 Smokeless Tobacco: Former Chew Comments:5-6 cigerettes a da y Alcohol Use Standard Drinks/Week Comments Not Currently 0 (1 standard drink = 0.6 oz pur e alcohol) last use 15 years ago [facility] Utilities Answer Date Recorded In the past 12 months has th [employer] electric, gas, oil, or water company threatened [...] any clubs o r organizations such as quaker groups, unions, fraternal or athletic groups, or [...] Answer Date Recorded Total Score 0 08/10/2023 [facility] Occupat ional Health - Occupational Stress [...] acute cor pulmonale, unspecified pulmonary embolism type ([facility]) Active Problems: Closed wedge compression fracture of T6 vertebra with routine healing BONY treated with BiPAP Chronic heart failure with preserved ejection fraction ([facility]) Bipolar 2 disorder, major depressive episode ([facility]) Discharge Specialty: Orthopedic and Vascular Name of Discharging Facility: [facility] Date of Facility Discharge: 08/29/23 Date of Interactive Contact and Name of Open End Spinning Operator: Spoke with friend Norma on 09/01/23 Medication [...] Not using the lidoderm patches, is taking [place] but does not take the pain away. [...] management- encouraged use of lidodem patch with [place]. Ice. -Follow up with providers as scheduled [...] Description 11/28/2024 2:00 PM EDT Office Visit [facility] - Heart Failure Clinic [address] [place] [address] Inez Cook, SEO EXECUTIVE-ENGINE TEST CELL TECHNICIAN [address] [place] [address] 12/07/2024 2:00 PM EDT Office Visit [facility] Internal Medicine - Family Medicine [address] [place] [phone] Michael Steiner, [address] [place] [address] documented as of this encounter Goals Goal [...] Time PHQ-9 Depression Total Score: 0 08/10/19 24 1:05 PM EDT documented as of this encounter Care Teams Secretary Bookkeeper Relationship Specialty Start Date End Date Michael Steiner DO [address] [place] [address] PCP - General Internal Medicine 12/17/23 documented as of this encounter
--- OUTSIDE RECORDS SUMMARY | 2024-11-14 10:19 | XMS_ITS | Encounter Summary ---
Author Organization [employer] s tem Address [id number] [address] [place] [address] Care Team Providers Care Crown Blocker Name Role Phone Michael Steiner DO Primary Care Provider [phone] Encounter Details Date Type Department Care Team (Late st Contact Info) Description 10/24/2024 Orders Only [facility] Internal Medicine - Family Medicine [address] [place] [address] Michael Steiner DO [address] [place] [address] Venous insufficiency of both lower extremities (Primary Dx) Social History Tobacco Use Types Packs/Day Years Used Date Smoking Tobacco: Former Cigarettes 1 40 0 09/1981 - 09/2021 Smokeless Tobacco: Never Comments:5-6 cigerettes a da y Alcohol Use Standard Drinks/Week Comments Not Currently 0 (1 standard drink = 0.6 oz pur e alcohol) last use 15 years ago [facility] Utilities Answer Date Recorded In the past 12 months has [employer] electric, gas, oil, or water company threatened [...] Answer Date Recorded Total Score 0 10/27/2024 [facility] of Occupat ional Health - [...] Description 11/28/2024 2:00 PM EDT Office Visit [facility] - Heart Failure Clinic [address] [place] [address] Inez Cook, COUNTERSINKER-FORGE UTILITY WORKER [address] [place] [address] 12/07/2024 2:00 PM EDT Office Visit [facility] Internal Medicine - Family Medicine [address] [place] [address] Michael Steiner, [address] [facility] [place] [address] documented as of this encounter Goals Goal Patient Goal Type Associated Problems Recent Progress Patient-Stated? Author home General Yes Jimena Snider LSW Note: Evaluation of progress towards goal: under assessment documented as of this encounter Visit Diagnoses Diagnosis Venous insufficiency of both lower extremities- Primary documented in this encounter Additional Health Concerns Assessment Noted Time PHQ-9 Depression Total Score: 15 025 11:42 AM EDT documented as of this encounter Care Teams Crown Blocker Relationship Specialty Start Date End Date Michael Steiner DO [address] [place] [address] PCP - General Internal Medicine 12/17/23 documented as of this encounter
--- OUTSIDE RECORDS SUMMARY | 2024-11-14 10:19 | XMS_ITS | Encounter Summary ---
Author Organization [employer] Address [id number] [address] [place] [address] Care Team Providers Care Machine Heel Builder Name Role Phone Michael Steiner DO Primary Care Provider Encounter Details Date Type Department Care Team (Late st Contact Info) Description 10/16/2023 Orders Only [facility] Internal Medicine - Family Medicine [address] [place] [address] Michael Steiner DO [address] [place] [address] B12 deficiency (Primary Dx) Social History Tobacco Use Types Packs/Day Years Used Date Smoking Tobacco: Former Cigarettes 1 40 0 09/1981 - 09/2021 Smokeless Tobacco: Never Comments:5-6 cigerettes a da y Alcohol Use Standard Drinks/Week Comments Not Currently 0 (1 standard drink = 0.6 oz pur e alcohol) last use 15 years ago [facility] Utilities Answer Date Recorded In the past 12 months has [employer] electric, gas, oil, or water company threatened [...] How often do you attend chur or protestant services? More than 4 times per year 07/25/2023 Do you belong to any clubs o r organizations such as religion groups, unions, fraternal or athletic groups, or [...] Answer Date Recorded Total Score 0 09/30/2023 [facility] - [...] Recorded Do you need help finding a [facility] career center and/or a training [...] Description 11/28/2024 2:00 PM EDT Office Visit [facility] - Heart Failure Clinic [address] [place] [phone] Inez Cook, INTERNAL AUDIT SENIOR MANAGER-TRACTOR MECHANIC HELPER [address] [place] [address] 12/07/2024 2:00 PM EDT Office Visit [facility] Internal Medicine - Family Medicine [address] [place] [phone] Michael Steiner, [address] [place] [address] documented as of this encounter Goals Goal Patient Goal Type Associated Problems Recent Progress Patient-Stated? Author home General Yes Jimena Snider LSW Note: Evaluation of progress towards goal: under assessment documented as of this encounter Visit Diagnoses Diagnosis B12 deficiency- Primary documented in this encounter Additional Health Concerns Infection Onset Date Last Indicated Resolved Time COVID-19 Rule-Out 12/17/2023 12/17/2023 12/17/2023 1:50 PM EDT Assessment Noted Time PHQ-9 Depression Total Score: 0 09/30/19 1:38 PM EDT documented as of this encounter Care Teams Machine Heel Builder Relationship Specialty Start Date End Date Michael Steiner DO [address] [place] [address] PCP - General Internal Medicine 12/17/23 documented as of this encounter
--- OUTSIDE RECORDS SUMMARY | 2024-11-14 10:19 | XMS_ITS | Encounter Summary ---
Author Organization [employer] tem Address [id number] [address] [place] [address] Care Team Providers Care Mechanical Unit Repairer Name Role Phone Michael Steiner DO Primary Care Provider [phone] Encounter Details Date Type Department Care Team (Late st Contact Info) Description 09/17/2023 Telephone [facility] Pulmonary/Sleep Medicine [address] [address] Shari Garcia RN Social History Tobacco Use Types Packs/Day Years Used Date Smoking Tobacco: Every Day Cigarettes 1 40 Started: 09/1981; Last attempted to quit: 09/2021 Smokeless Tobacco: Former Chew Comments:5-6 cigerettes a da y Alcohol Use Standard Drinks/Week Comments Not Currently 0 (1 standard drink = 0.6 oz pur e alcohol) last use 15 years ago [facility] Utilities Answer Date Recorded In the past 12 months has [employer], gas, oil, or water [email or web address] threatened to shut off services in your [...] 07/25/2023 How often do you attend [facility] or holiness services? More than 4 times per year 07/25/2023 Do you belong to any clubs o r organizations such as bahai groups, unions, fraternal or athletic groups, or [...] Answer Date Recorded Total Score 0 09/09/2023 [facility] - [...] Garcia RN - 09/17/2023 7:32 AM EDT Corncob Pipe Supervisor spoke to patient and informed per Dr [...] Description 11/28/2024 2:00 PM EDT Office Visit [facility] - Heart Failure Clinic [address] [place] [phone] Inez Cook, HAIRSPRING TRUING INSPECTOR-SIX SIGMA BLACK BELT ENGINEER [address] [place] [phone] 12/07/2024 2:00 PM EDT [facility] [address] [place] [phone] Michael Steiner DO [address] [facility] [place], [place] [address] documented as of this encounter Goals Goal [...] Time PHQ-9 Depression Total Score: 0 09/09/19 1:00 PM EDT documented as of this encounter Care Teams Mechanical Unit Repairer Relationship Specialty Start Date End Date Michael Steiner DO [address] [facility] [place] [address] PCP - General Internal Medicine 12/17/23 documented as of this encounter
--- OUTSIDE RECORDS SUMMARY | 2024-11-14 10:19 | XMS_ITS | Encounter Summary ---
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 More than 4 times per year 07/25/2023 Do you belong to any clubs o r organizations such as judaism groups, unions, fraternal or athletic groups, or [...] Answer Date Recorded Total Score 0 07/07/2024 [facility] - [...] you need help finding a [facility] career center and/or a training program? [...] Description 11/28/2024 2:00 PM EDT Office Visit [facility] - Heart Failure Clinic [address] [place] [address] Inez Cook, NUDE MODEL-LAB AID [address] [place] [phone] 12/07/2024 2:00 PM EDT Office Visit [facility] Internal Medicine - Family Medicine [address] [place] [address] Michael Steiner DO [address] [place] [address] documented as of this encounter Goals Goal Patient Goal Type Associated Problems Recent Progress Patient-Stated? 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
--- OUTSIDE RECORDS SUMMARY | 2024-11-14 10:19 | XMS_ITS | Encounter Summary ---
Author Organization [facility] [employer] s tem Address [id number] [address] [place] [address] Care Team Providers Care Fbi Special Agent Name Role Phone Michael Steiner DO Primary Care Provider [phone] Reason for Referral * Diagnostic Imaging (Routine) - Closed Specialty Diagnoses / Procedures Referred By Rick rahman Referred To Contact Radiology Diagnoses Pulmonary nodule Procedures PET CT skull to thigh Grupo Nguyen MD [address] [address] Phone: tel: fax: [place] [address] [place] [address] Phone: tel: Referral ID Status Reason Start Date Expiration Date Visits Re quested Visits Authorized [id number] Closed 10/17/2021 10/17/2022 1 1 Encounter Details Date Type Department Care Team (Late st Contact Info) Description 10/17/2021 Orders Only [facility] Pulmonary/Sleep [facility] [address] [phone] Juli Mixon RN Pulmonary nodule (Primary Dx) [...] week 01/09/2020 How often do you attend yarsanism or islam serv ices? Never 01/09/2020 Do you belong [...] Recorded Do you need help finding a [facility] career center and/or a training program? No [...] 2:00 PM EDT Office Visit [facility] - Heart Failure Clinic [address] [place] [address] Inez Cook, FIREBOAT OPERATOR-TUBER HELPER [address] [place] [address] 12/07/2024 2:00 PM EDT Office Visit [facility] Internal Medicine - Family Medicine [address] [place] [phone] Michael Steiner DO [address] [place] [address] documented as of this encounter Results * [...] malignancy:No Indication:Malignant potential Radioisotope:17.0 millicuries FDG. Blood [id number] milligrams perdeciliter. Blood glucose reference range 65-90 [...] BMI is noted. Clinical correlation is advised. us Grupo Nguyen MD PFT ORDERABLES Final Result MANUALLY TRANSCRIBED RESULTS documented in this encounter Visit Diagnoses Diagnosis Pulmonary nodule- Primary Other diseases of lung, not elsewhere classified Pulmonary nodule Other diseases of lung, not elsewhere classified Pulmonary nodule Other diseases of lung, not elsewhere classified documented in this encounter Additional Health Concerns [...] documented as of this encounter Care Teams Fbi Special Agent Relationship Specialty Start Date End Date Michael Steiner DO [address] [place] [address] PCP - General Internal Medicine 12/17/23 documented as of this encounter
--- OUTSIDE RECORDS SUMMARY | 2024-11-14 10:19 | XMS_ITS | Encounter Summary ---
Author Organization [facility] tem Address [id number] [address] [place] [address] Care Team Providers Care Director Medical Economics Name Role Phone Michael Steiner DO Primary Care Provider [phone] Reason for Referral * Vascular (Routine) - Closed Specialty Diagnoses / Procedures Referred By Rick rahman Referred To Contact Diagnoses Acute pulmonary embolism without acute cor pulmonale, unspecified pulmonary embolism type ([facility]) Procedures Vas venous duplex lwr bilateral Michael Steiner DO [address] [place] [address] Phone: tel: fax: [facility] [address] [place] [address] Phone: tel: Referral ID Status Reason Start Date Expiration Date Visits Re quested Visits Authorized [id number] Closed 08/31/2023 08/30/2024 1 1 * Diagnostic Imaging (Routine) - Closed Specialty Diagnoses / Procedures Referred By Rick rahman Referred To Contact Radiology Diagnoses Closed wedge compression fracture of T6 vertebra with routine healing Procedures MR thoracic spine without contrast Michael Steiner DO [address] [place] [address] Phone: tel: fax:[phone] Referral ID Status Reason Start Date Expiration Date Visits Re quested Visits Authorized [id number] Closed 08/31/2023 08/30/2024 1 1 Encounter Details Date Type Department Care Team (Late st Contact Info) Description 08/31/2023 Orders Only [facility] Internal Medicine - Family Medicine [address] [place] [address] Michael Steiner DO [address] [place] [address] Closed wedge compression fracture of T6 vertebra with routine healing (Primary Dx); Acute pulmonary embolism without acute cor pulmonale, unspecified pulmonary embolism type ([facility]) Social History Tobacco Use Types Packs/Day Years Used Date Smoking Tobacco: Former Cigarettes 1 40 0 09/1981 - 09/2021 Smokeless Tobacco: Former Chew Comments:5-6 cigerettes a da y Alcohol Use Standard Drinks/Week Comments Not Currently 0 (1 standard drink = 0.6 oz pur e alcohol) last use [address] [facility] Utilities Answer Date Recorded In the past 12 months has [employer], gas, oil, or water [employer] threatened to shut off services in your [...] Answer Date Recorded Total Score 0 08/10/2023 [facility] of [...] Recorded Do you need help finding a [facility] and/or a training program? No [...] Description 11/28/2024 2:00 PM EDT Office Visit [facility] - Heart Failure Clinic [address] [place] [phone] Inez Cook, HOG ROOM SUPERVISOR-ESTATE MANAGER [address] [place] [address] 12/07/2024 2:00 PM EDT Office Visit [facility] Internal Medicine - Family Medicine [address] [place] [address] Michael Steiner, DO [address] [place] [address] documented as of this encounter Goals Goal [...] cor pulmonale, unspecified pulmonary embolism type ([facility]-HCC) documented in this encounter Additional Health Concerns Infection Onset Date Last Indicated Resolved Time COVID-19 Rule-Out 12/17/2023 12/17/2023 12/17/2023 1:50 PM EDT Assessment Noted Time PHQ-9 Depression Total Score: 0 08/10/19 1:05 PM EDT documented as of this encounter Care Teams Director Medical Economics Relationship Specialty Start Date End Date Michael Steiner DO [address] [place] [address] PCP - General Internal Medicine 12/17/23 documented as of this encounter
--- OUTSIDE RECORDS SUMMARY | 2024-11-14 10:19 | XMS_ITS | Encounter Summary ---
Author Organization [employer] tem Address [facility]-[id number] [address] [place] [address] Care Team Providers Care Party Plan Sales Host/Hostess Name Role Phone Michael Steiner DO Primary Care Provider [phone] Encounter Details Date Type Department Care Team (Latest Contact Info) Description 10/31/2024 Travel Social History Tobacco Use Types Packs/Day Years Used Date Smoking Tobacco: Former Cigarettes 1 40 0 09/1981 - 09/2021 Smokeless Tobacco: Never Comments:5-6 cigerettes a da y Alcohol Use Standard Drinks/Week Comments Not Currently 0 (1 standard drink = 0.6 oz pur e alcohol) last use 15 years ago [facility] Utilities Answer Date Recorded In the [...] any clubs o r organizations such as jain groups, unions, fraternal or athletic groups, or [...] Answer Date Recorded Total Score 0 10/27/2024 [facility] Occupat ional Health - Occupational [...] Recorded Do you need help finding a [facility] career center and/or a training program? [...] Description 11/28/2024 2:00 PM EDT Office Visit [facility] - Heart Failure Clinic [address] [place] [address] Inez Cook, CATERING SERVER-REAL ESTATE COORDINATOR [address] [place] [address] 12/07/2024 2:00 PM EDT Office Visit [facility] Internal Medicine - Family Medicine [address] [place] [address] Michael Steiner DO [address] [place] [address] documented as of this encounter Goals Goal [...] documented as of this encounter Care Teams Party Plan Sales Host/Hostess Relationship Specialty Start Date End Date Michael Steiner DO [address] [place] [address] PCP - General Internal Medicine 12/17/23 documented as of this encounter
--- OUTSIDE RECORDS SUMMARY | 2024-11-14 10:19 | XMS_ITS | Encounter Summary ---
Author Organization [employer] Address [facility]-[id number] [address] [place] [address] Care Team Providers Care Radiology Transcriptionist Name Role Phone Michael Steiner DO Primary Care Provider Encounter Details Date Type Department Care Team (Late st Contact Info) Description 10/31/2021 Telephone [facility] Pul[facility]/Sleep Medicine [address] [address] Juli Mixon RN Social History [...] week 01/09/2020 How often do you attend islam or mandaeism serv ices? Never 01/09/2020 Do you belong to any clubs o r organizations such as islam groups, unions, fraternal or athletic groups, or [...] Recorded Do you need help finding a [employer] center and/or a training program? No 01/09/2020 [...] Description 11/28/2024 2:00 PM EDT Office Visit [facility] - Heart Failure Clinic [address] [place] [address] Inez Cook, SALES STOCK ASSOCIATE-CERAMIC DESIGN ENGINEER [address] [place] [phone] 12/07/2024 2:00 PM EDT Office Visit [facility] Internal Medicine - Family Medicine [address] [place] [address] Michael Steiner DO [address] [place], [place] [address] documented as of this encounter Visit Diagnoses [...] documented as of this encounter Care Teams Radiology Transcriptionist Relationship Specialty Start Date End Date Michael Steiner DO [address] [place] [address] PCP - General Internal Medicine 12/17/23 documented as of this encounter
--- OUTSIDE RECORDS SUMMARY | 2024-11-14 10:19 | XMS_ITS | Encounter Summary ---
Author Organization [facility] Address [address] [place] [address] Care Team Providers Care Assistant Director Of Nursing Name Role Phone Michael Steiner MD Primary Care Provider [phone] Encounter Details Date Type Department Care Team (Late st Contact Info) Description 03/18/2024 Abstract [facility] [address] [place] [phone] Patricia Mcclure MA Social History Tobacco Use [...] EST Office Visit [facility] [address] [place] [phone] Sydnie Guerrero DO [address] [place] [address] documented as of this encounter Visit Diagnoses Not on filedocumented in this encounter Care Teams Assistant Director Of Nursing Relationship Specialty Start Date End Date Michael Steiner MD PCP - General Internal Medicine 08/11/23 documented as of this encounter
--- OUTSIDE RECORDS SUMMARY | 2024-11-14 10:19 | XMS_ITS | Encounter Summary ---
Author Organization [facility] [employer] Address [facility] [place]-[id number] [address] [place] [address] Care Team Providers Care Cut Off Saw Operator Name Role Phone Michael Steiner DO Primary Care Provider [phone] Encounter Details Date Type Department Care Team (Late st Contact Info) Description 10/07/2023 Telephone [facility] Heart Failure Clinic [address] [place] [phone] Lamar Carlson Social History Tobacco Use Types Packs/Day Years Used Date Smoking Tobacco: Former Cigarettes 1 40 0 09/1981 - 09/2021 Smokeless Tobacco: Never Comments:5-6 cigerettes a da y Alcohol Use Standard Drinks/Week Comments Not Currently 0 (1 standard drink = 0.6 oz pur e alcohol) last use 15 years ago [facility] Utilities Answer Date Recorded In the past 12 months has [employer], gas, oil, or water [employer] threatened to shut off services in your [...] often do you attend chur ch or anabaptist services? More than 4 times per year [...] Answer Date Recorded Total Score 0 09/30/2023 [facility] Occupat ional Health - [...] Recorded Do you need help finding a [facility] career center and/or a training program? [...] patient to schedule 6 mo ov with [facility] in January. Patients states they will call back to schedule. documented in this encounter Plan of Treatment Upcoming Encounters Date Type Department Care Team (Late st Contact Info) Description 11/28/2024 2:00 PM EDT Office Visit [facility] - Heart Failure Clinic [address] [place] [address] Inez Cook, SPRUE KNOCKER-SHIPPING ROOM HELPER [address] [place] [address] 12/07/2024 2:00 PM EDT Office Visit [facility] Internal Medicine - Family Medicine [address] [place] [address] Michael Steiner DO [address] [place] [address] documented as of this encounter Goals Goal Patient Goal Type Associated Problems Recent Progress Patient-Stated? Author home General Yes Agatha, Jimena, GAS DERRICK OPERATOR Note: Evaluation of progress towards goal: under assessment documented as of this encounter Visit Diagnoses Not on filedocumented in this encounter Additional Health Concerns Infection Onset Date Last Indicated Resolved Time COVID-19 Rule-Out 12/17/2023 12/17/2023 12/17/2023 1:50 PM EDT Assessment Noted Time PHQ-9 Depression Total Score: 0 09/30/19 1:38 PM EDT documented as of this encounter Care Teams Cut Off Saw Operator Relationship Specialty Start Date End Date Michael Steiner DO [address] [place] [address] PCP - General Internal Medicine 12/17/23 documented as of this encounter
--- OUTSIDE RECORDS SUMMARY | 2024-11-14 10:19 | XMS_ITS | Encounter Summary ---
Author Organization [facility] Address [address] [place] [address] Care Team Providers Care Probate Lawyer Name Role Phone Michael Steiner MD Primary Care Provider [phone] Encounter Details Date Type Department Care Team (Late st Contact Info) Description 03/17/2024 Abstract [facility] [address] [place] [phone] Patricia Mcclure MA Social History Tobacco Use [...] EST Office Visit [facility] [address] [place] [address] Sydnie Guerrero DO [address] [place] [address] documented as of this encounter Visit Diagnoses Not on filedocumented in this encounter Care Teams Probate Lawyer Relationship Specialty Start Date End Date Michael Steiner MD PCP - General Internal Medicine 08/11/23 documented as of this encounter
--- OUTSIDE RECORDS SUMMARY | 2024-11-14 10:19 | XMS_ITS | Clinical Summary ---
Author Organization [facility] Address [address] [place] [address] Care Team Providers Care Planner Name Role Phone Michael Steiner MD Primary Care Provider [phone] Allergies Active Allergy Reactions Criticality Noted Date [...] angioplasty 2013 Overview (01/22/2024): Dr. Vickers at [facility] in [place] did PCI with bare metal stent placement [...] PM EDT Office Visit [facility] [address] [place] [address] Sydnie Guerrero DO Chronic obstructive pulmonary disease, unspecified COPD type (HCC) (Primary Dx); Chronic respiratory failure with hypoxia and hypercapnia (HCC); BONY (obstructive sleep apnea) 09/21/2024 Bamboo flowsheet [facility] [address] [place] [address] Sydnie Guerrero DO from Last [...] PM EST Office Visit [facility] [address] [place] [address] Sydnie Guerrero DO [address] [place] [address] Insurance [place] [employer] Care Teams Planner Relationship Specialty Start Date End Date Michael Steiner MD PCP - General Internal Medicine 08/11/23
--- OUTSIDE RECORDS SUMMARY | 2024-11-14 10:19 | XMS_ITS | Encounter Summary ---
Author Organization [facility] tem Address [id number] [address] [place] [address] Care Team Providers Care Senior Procurement Manager Name Role Phone Michael Steiner DO Primary Care Provider [phone] Reason for Referral * Consultation (Routine) - Closed Specialty Diagnoses / Procedures Referred By Rick rahman Referred To Contact Orthopedic Surgery / MED-SURG/ORTHOPEDICS Diagnoses Closed wedge compression fracture of T6 vertebra with routine healing Michael Steiner DO [address] [place] [address] Phone: tel: fax: Jair Huertas DO Phone: tel: fax: Referral ID Status Reason Start Date Expiration Date V isits Requested Visits Authorized [id number] Closed Specialty Services Required 09/14/2023 09/13/2024 4 4 Encounter Details Date Type Department Care Team (Late st Contact Info) Description 09/14/2023 Orders Only [facility] Internal [facility] - Family Medicine [address] [place] [address] Michael Steiner DO [address] [place], [place] [phone] Closed wedge compression fracture of T6 vertebra [...] e alcohol) last use 15 years ago [facility] Utilities Answer Date Recorded In the past 12 months has th e [employer], gas, oil, or water [employer] threatened to shut off services in your [...] How often do you attend [facility] or congregational services? More than 4 times per year [...] Answer Date Recorded Total Score 0 09/09/2023 [facility] [place] of Occupat ional Health - Occupational Stress [...] Recorded Do you need help finding a [facility] career center and/or a training program? [...] Description 11/28/2024 2:00 PM EDT Office Visit [facility] - Heart Failure Clinic [address] [place] [phone] Inez Cook, CHANNEL MACHINE OPERATOR-BOBBIN TRUCKER [address] [place] [place] [address] 12/07/2024 2:00 PM EDT Office Visit [facility] - Family Medicine [address] [place] [address] Michael Steiner DO [address] [place] [address] documented as of this encounter Goals Goal [...] of T6 vertebra with routine healing- Primary documented in this encounter Additional Health Concerns Infection Onset Date Last Indicated Resolved Time COVID-19 Rule-Out 12/17/2023 12/17/2023 12/17/2023 1:50 PM EDT Assessment Noted Time PHQ-9 Depression Total Score: 0 09/09/19 1:00 PM EDT documented as of this encounter Care Teams Senior Procurement Manager Relationship Specialty Start Date End Date Michael Steiner DO [address] [place] [address] PCP - General Internal Medicine 12/17/23 documented as of this encounter
--- OUTSIDE RECORDS SUMMARY | 2024-11-14 10:19 | XMS_ITS | Encounter Summary ---
Author Organization [employer] tem Address [id number] [address] [place] [address] Care Team Providers Care Inpatient Services Rn Name Role Phone Michael Steiner DO Primary Care Provider [phone] Encounter Details Date Type Department Care Team (Late st Contact Info) Description 10/24/2024 Telephone [facility] Internal Medicine - Family Medicine [address] [place] [phone] Megan Talley, ELIAN Social History Tobacco Use Types Packs/Day Years Used Date Smoking Tobacco: Former Cigarettes 1 40 0 09/1981 - 09/2021 Smokeless Tobacco: Never Comments:5-6 cigerettes a da y Alcohol Use Standard Drinks/Week Comments Not Currently 0 (1 standard drink = 0.6 oz pur e alcohol) last use 15 years ago [facility] Utilities Answer Date Recorded In the past 12 months has [employer], gas, oil, or water [employer] threatened to shut off services in your [...] How often do you attend [facility] or buddhism services? More than 4 times per year [...] Answer Date Recorded Total Score 0 10/27/2024 [facility] of Occupat ional Health - [...] 2:00 PM EDT Office Visit [facility] - Heart Failure Clinic [address] [place] [address] Inez Cook, SETUP TECHNICIAN-DIGITAL PRINTER [address] [place] [address] 12/07/2024 2:00 PM EDT Office Visit [facility] Internal Medicine - Family Medicine [address] [place] [address] Michael Steiner, DO [address] [place] [address] documented as of this encounter Goals Goal [...] documented as of this encounter Care Teams Inpatient Services Rn Relationship Specialty Start Date End Date Michael Steiner DO [address] [place] [address] PCP - General Internal Medicine 12/17/23 documented as of this encounter
--- OUTSIDE RECORDS SUMMARY | 2024-11-14 10:19 | XMS_ITS | Encounter Summary ---
Author Organization [employer] s tem Address [facility]-[id number] [address] [place] [address] Care Team Providers Care Devulcanizer Tender Name Role Phone Michael Steiner DO Primary Care Provider [phone] Encounter Details Date Type Department Care Team (Late st Contact Info) Description 10/01/2023 Telephone [facility] Medicine - Family Medicine [address] [place] [phone] Juan Diego Esquivel CMA Social History Tobacco Use Types Packs/Day Years Used Date Smoking Tobacco: Former Cigarettes 1 40 0 09/1981 - 09/2021 Smokeless Tobacco: Never Comments:5-6 cigerettes a da y Alcohol Use Standard Drinks/Week Comments Not Currently 0 (1 standard drink = 0.6 oz pur e alcohol) last use 15 years ago [facility] Utilities Answer Date Recorded In the past 12 months has [employer], gas, oil, or water [employer] threatened to shut off services in your [...] 07/25/2023 How often do you attend [facility] or mormon services? More than 4 times [...] Answer Date Recorded Total Score 0 09/30/2023 [facility] of Occupat ional Health [...] but I did refill her prescription for [place] 5-325 b.i.d. times30 days documented in this encounter Plan of Treatment Upcoming Encounters Date Type Department Care Team (Late st Contact Info) Description 11/28/2024 2:00 PM EDT Office Visit [facility] - Heart Failure Clinic [address] [place] [address] Inez Cook, SMALL BOAT ENGINEER-CHECK WRITER [address] [place] [address] 12/07/2024 2:00 PM EDT Office Visit [facility] - Family Medicine [address] [place] [phone] Michael Steiner DO [address] [facility] [place] [address] documented as of this encounter Goals Goal [...] documented as of this encounter Care Teams Devulcanizer Tender Relationship Specialty Start Date End Date Michael Steiner DO [address] [place] [address] PCP - General Internal Medicine 12/17/23 documented as of this encounter
--- OUTSIDE RECORDS SUMMARY | 2024-11-14 10:19 | XMS_ITS | Encounter Summary ---
Author Organization [employer] s tem Address [facility]-[id number] [address] [place] [address] Care Team Providers Care Program Checker Name Role Phone Michael Steiner DO Primary Care Provider [phone] Encounter Details Date Type Department Care Team (Late st Contact Info) Description 09/28/2023 [facility] [address] [place] [address] PrestonMonica lo, CONTROL PANEL ASSEMBLER Social History Tobacco Use Types Packs/Day Years Used Date Smoking Tobacco: Former Cigarettes 1 40 0 09/1981 - 09/2021 Smokeless Tobacco: Never Comments:5-6 cigerettes a da y Alcohol Use Standard Drinks/Week Comments Not Currently 0 (1 standard drink = 0.6 oz pur e alcohol) last use 15 years ago [facility] Utilities Answer Date Recorded In the past 12 months has [employer], gas, oil, or water [employer] threatened to shut off services in [...] week 07/25/2023 How often do you attend [facility] or yarsani services? More than 4 [...] Answer Date Recorded Total Score 0 09/30/2023 [facility] of Occupat ional [...] Description 11/28/2024 2:00 PM EDT Office Visit [facility] - Heart Failure Clinic [address] [place] [phone] Inez Cook, STAKE SETTER-EMPLOYMENT LAW SPECIALIST [address] [place] [address] 12/07/2024 2:00 PM EDT Office Visit [facility] Medicine - Family Medicine [address] [place] [address] Michael Steiner DO [address] [place] [address] documented as of this encounter Goals Goal [...] Time PHQ-9 Depression Total Score: 0 09/24/19 11:09 AM EDT documented as of this encounter Care Teams Program Checker Relationship Specialty Start Date End Date Michael Steiner DO [address] [place] [address] PCP - General Internal Medicine 12/17/23 documented as of this encounter
--- OUTSIDE RECORDS SUMMARY | 2024-11-14 10:19 | XMS_ITS | Encounter Summary ---
Author Organization [employer] s tem Address [facility]-[id number] [address] [place] [address] Care Team Providers Care Nutrition Professor Name Role Phone Michael Steiner DO Primary Care Provider [phone] Encounter Details Date Type Department Care Team (Late st Contact Info) Description 11/10/2024 [facility]phone [facility] [address] [place] [phone] Megan Talley, ELIAN Social History Tobacco Use [...] Recorded In the past 12 months has [employer], gas, oil, or water [employer] threatened to shut off services in your [...] week 07/25/2023 How often do you attend [facility] or mormon services? More than 4 [...] Answer Date Recorded Total Score 0 11/07/2024 [facility] of Occupat ional Health - [...] Telephone Encounter - Megan Talley CMA - 11/10/2024 9:09 AM EDT Pt's friend, Norma, called in and stated the pt received Propanolol instead of the Pantoprazole. It looks like it was sent in on the , but it wasn't the Protonix. What is next then? Thank you. * Telephone Encounter - Michael Steiner DO - 11/10/2024 9:09 AM EDT Message noted. They need to check with the pharmacy, because the prescription was sent for pantoprazole. Propranolol is not even on our list of medications any longer. It appears the pharmacy may have issued the wrong prescription * Telephone Encounter - Megan Talley CMA - 11/10/2024 9:09 AM EDT I notified her to contact pharmacy as you stated. Thank you. documented in this encounter Plan of Treatment Upcoming Encounters Date Type Department Care Team (Late st Contact Info) Description 11/28/2024 2:00 PM EDT Office Visit [facility] - Heart Failure Clinic [address] [facility] [place] [address] Inez Cook, WORKERS COMPENSATION PARALEGAL-MANUFACTURING MILLWRIGHT [address] [place] [address] 12/07/2024 2:00 PM EDT Office Visit [facility] Internal Medicine - Family Medicine [address] [place] [phone] Michael Steiner DO [address] [place] [address] documented as of this encounter Goals Goal [...] documented as of this encounter Care Teams Nutrition Professor Relationship Specialty Start Date End Date Michael Steiner DO [address] [place] [address] PCP - General Internal Medicine 12/17/23 documented as of this encounter
--- OUTSIDE RECORDS SUMMARY | 2024-11-14 10:19 | XMS_ITS | Encounter Summary ---
Author Organization [address] tem Address [id number] [address] [place] [address] Care Team Providers Care Machine Engraver Name Role Phone Michael Steiner DO Primary Care Provider [phone] Reason for Referral * Misc (Routine) - Closed Specialty Diagnoses / Procedures Referred By Contac t Referred To Contact Diagnoses BONY (obstructive sleep apnea) Procedures PSG Diagnostic Grupo Nguyen MD [address] [address] Phone: tel: fax: Referral ID Status Reason Start Date Expiration Date Visits Re quested Visits Authorized [id number] Closed 11/04/2021 11/04/2022 1 1 * Diagnostic Imaging (Routine) - Closed Specialty Diagnoses / Procedures Referred By Contac t Referred To Contact Radiology Diagnoses Pulmonary nodule Procedures CT chest without contrast Grupo Nguyen MD [address] [address] Phone: tel: fax: Referral ID Status Reason Start Date Expiration Date Visits Re quested Visits Authorized [id number] Closed 11/04/2021 11/04/2022 1 1 Encounter Details Date Type Department Care Team (Late st Contact Info) Description 11/04/2021 Telephone [facility] Pulmonary/Sleep Medicine [address] [address] Juli Mixon, VICTOR M Social [...] week 01/09/2020 How often do you attend yazidism or sikh serv ices? Never 01/09/2020 Do you belong to any clubs o r organizations such as yazidism groups, unions, fraternal or athletic groups, or [...] Ct 4 months order placed Recall placed [facility] message sent PSG ordered * [...] 11/28/2024 2:00 PM EDT Office Visit [facility] - Heart Failure Clinic [address] [place] [address] Inez Cook, ANNEALER HELPER-DENTAL TECHNICIAN APPRENTICE [address] [place] [address] 12/07/2024 2:00 PM EDT Office Visit [facility] Internal Medicine - Family Medicine [address] [place] [address] Michael Steiner, DO [address] [place] [address] documented as of this encounter Results * [...] on 02/23/2022 10:[address] [facility] ORDERABLES Final Result documented in this encounter Visit Diagnoses Diagnosis Pulmonary nodule- Primary Other diseases of lung, not elsewhere classified BONY (obstructive sleep apnea) Obstructive sleep apnea (adult) (pediatric) Pulmonary nodule Other diseases of lung, not elsewhere classified BONY (obstructive sleep apnea) Obstructive sleep apnea (adult) (pediatric) documented in this encounter Additional Health Concerns [...] as of this encounter Care Teams Machine Engraver Relationship Specialty Start Date End Date Michael Steiner DO [address] [place] [address] PCP - General Internal Medicine 12/17/23 documented as of this encounter
--- OUTSIDE RECORDS SUMMARY | 2024-11-14 10:19 | XMS_ITS | Encounter Summary ---
Author Organization [employer] s tem Address [facility] [place] [place]-[id number] [address] [place] [address] Care Team Providers Care Chicken Cutter Name Role Phone Michael Steiner DO Primary Care Provider [phone] Encounter Details Date Type Department Care Team (Late st Contact Info) Description 08/31/2023 [facility]phone [facility] [address] [place] [address] PrestonMonica lo, CERTIFIED JUVENILE PROBATION OFFICER Social History Tobacco Use Types Packs/Day Years Used Date Smoking Tobacco: Former Cigarettes 1 40 0 09/1981 - 09/2021 Smokeless Tobacco: Former Chew Comments:5-6 cigerettes a da y Alcohol Use Standard Drinks/Week Comments Not Currently 0 (1 standard drink = 0.6 oz pur e alcohol) last use 15 years ago [facility] Utilities Answer Date Recorded In the past 12 months has [employer], gas, oil, or water [employer] threatened to shut off services in your [...] week 07/25/2023 How often do you attend [facility] or pentecostal services? More than 4 times [...] Answer Date Recorded Total Score 0 08/10/2023 [facility] of Occupat [...] Description 11/28/2024 2:00 PM EDT Office Visit [facility] - Heart Failure Clinic [address] [place] [address] Inez Cook, GEOGRAPHIC INFORMATION SYSTEM SURVEYOR-LIBERAL ARTS AND HUMANITIES CHAIR [address] [place] [address] 12/07/2024 2:00 PM EDT Office Visit [facility] Internal Medicine - Family Medicine [address] [place] [phone] Michael Steiner DO [address] [place] [address] documented as of this encounter Goals Goal [...] documented as of this encounter Care Teams Chicken Cutter Relationship Specialty Start Date End Date Michael Steiner DO [address] [place] [address] PCP - General Internal Medicine 12/17/23 documented as of this encounter
--- OUTSIDE RECORDS SUMMARY | 2024-11-14 10:19 | XMS_ITS | Encounter Summary ---
Author Organization [employer] s tem Address [facility] [place]-[id number] [address] [place] [address] Care Team Providers Care Cuff Folder Name Role Phone Michael Steiner DO Primary Care Provider [phone] Encounter Details Date Type Department Care Team (Late st Contact Info) Description 11/01/2024 Telephone [facility] - Family Medicine [address] [place] [address] Juan Diego Esquivel CMA Social History Tobacco Use Types Packs/Day Years Used Date Smoking Tobacco: Former Cigarettes 1 40 0 09/1981 - 09/2021 Smokeless Tobacco: Never Comments:5-6 cigerettes a da y Alcohol Use Standard Drinks/Week Comments Not Currently 0 (1 standard drink = 0.6 oz pur e alcohol) last use [address] [facility] Utilities Answer Date Recorded In the past 12 months has [employer], gas, oil, or water [employer] threatened to shut off services in your [...] week 07/25/2023 How often do you attend [facility] or oriental orthodox services? More than 4 times per year 07/25/2023 Do you belong to any clubs o r organizations such as cheondoism groups, unions, fraternal or athletic groups, or [...] Answer Date Recorded Total Score 0 10/27/2024 [facility] of Occupat ional Health [...] Recorded Do you need help finding a [facility] career center and/or a training [...] Encounter - Juan Diego Esquivel CMA - 11/01/2024 5:29 PM EDT Pt called and left VM stating she is still waiting on lasix. * Telephone Encounter - Juan Diego Esuqivel CMA - 11/01/2024 5:29 PM EDT I called pt and let her know. She wanted you to know that the right knee is twice the size of the left. She does have a appt with you on Thursday. documented in this encounter Plan of Treatment Upcoming Encounters Date Type Department Care Team (Late st Contact Info) Description 11/28/2024 2:00 PM EDT Office Visit [facility] - Heart Failure Clinic [address] [place] [address] Inez Cook, ERP PM-DATA WAREHOUSE SPECIALIST [address] [place] [address] 12/07/2024 2:00 PM EDT Office Visit [facility] Internal Medicine - Family Medicine [address] [facility] [place] [address] Michael Steiner DO [address] [place] [address] documented as of this encounter Goals Goal [...] documented as of this encounter Care Teams Cuff Folder Relationship Specialty Start Date End Date Michael Steiner DO [address] [place] [address] PCP - General Internal Medicine 12/17/23 documented as of this encounter
--- OUTSIDE RECORDS SUMMARY | 2024-11-14 10:19 | XMS_ITS | Encounter Summary ---
Author Organization [employer] tem Address [facility] [place]-[id number] [address] [place] [address] Care Team Providers Care Testboard Operator Name Role Phone Michael Steiner DO Primary Care Provider [phone] Encounter Details Date Type Department Care Team (Late st Contact Info) Description 07/31/2023 [facility]phone [facility] [address] [place] [address] Antoinette Sanchez CNA Social History Tobacco Use Types Packs/Day Years Used Date Smoking Tobacco: Former Cigarettes 1 40 0 09/1981 - 09/2021 Smokeless Tobacco: Former Chew Comments:5-6 cigerettes a da y Alcohol Use Standard Drinks/Week Comments Not Currently 0 (1 standard drink = 0.6 oz pur e alcohol) last use 15 years ago [facility] Utilities Answer Date Recorded In the past 12 months has [employer], gas, oil, or water [employer] threatened to shut off services in your [...] How often do you attend chur or scientologist services? More than 4 times [...] Answer Date Recorded Total Score 0 07/01/2023 [facility] of Occupat ional Health - Occupational [...] Description 11/28/2024 2:00 PM EDT Office Visit [facility] - Heart Failure Clinic [address] [place] [address] Inez Cook, SEXER-SAFETY RELIEF VALVE TECHNICIAN [address] [place] [address] 12/07/2024 2:00 PM EDT Office Visit [facility] Internal Medicine - Family Medicine [address] [place] [address] Michael Steiner DO [address] [place] [address] documented as of this encounter Visit Diagnoses Not on filedocumented in this encounter Additional Health Concerns Infection Onset Date Last Indicated Resolved Time COVID-19 Rule-Out 12/17/2023 12/17/2023 12/17/2023 1:50 PM EDT Assessment Noted Time PHQ-9 Depression Total Score: 0 07/01/19 2:19 PM EST documented as of this encounter Care Teams Testboard Operator Relationship Specialty Start Date End Date Michael Steiner DO [address] [place] [address] PCP - General Internal Medicine 12/17/23 documented as of this encounter
--- OUTSIDE RECORDS SUMMARY | 2024-11-14 10:19 | XMS_ITS | Encounter Summary ---
Author Organization [facility] Address [id number] [address] [place] [address] Care Team Providers Care Assembler Musical Equipment Name Role Phone JoanMichael gonsalez Janae CABRERA Primary Care Provider [phone] Reason for Visit * Reason Comments Med Refill Encounter Details Date Type Department Care Team (Late st Contact Info) Description 01/05/2023 Refill [facility] Cardiology [address] [place] [phone] Saurabh Morrison, BOX CAR WASHER-FUR TRAPPER [address] [place] [address] Med Refill Social History Tobacco Use Types [...] week 01/09/2020 How often do you attend catholic or taoist serv ices? Never 01/09/2020 Do you belong [...] Recorded Do you need help finding a [employer] career center and/or a training program? No [...] Description 11/28/2024 2:00 PM EDT Office Visit [facility] - Heart Failure Clinic [address] [place] [address] Inez Cook, BOX CAR WASHER-FUR TRAPPER [address] [place] [address] 12/07/2024 2:00 PM EDT Office Visit [facility] Internal Medicine - Family Medicine [address] [place] [address] YuMichael gonsalez DO [address] [place] [address] documented as of this encounter Visit Diagnoses Diagnosis Atherosclerosis of [place] coronary artery of [place] heart without angina pectoris- Primary Hx of hyperlipidemia documented in this encounter Additional Health Concerns [...] documented as of this encounter Care Teams Assembler Musical Equipment Relationship Specialty Start Date End Date Michael Steiner DO [address] [place] [address] PCP - General Internal Medicine 12/17/23 documented as of this encounter
--- OUTSIDE RECORDS SUMMARY | 2024-11-14 10:20 | XMS_ITS | Clinical Summary ---
Author Organization [employer] Address [id number] [address] [place] [address] Care Team Providers Care Segment Producer Name Role Phone JoanMichael gonsalez Janae CABRERA Primary Care Provider [phone] Allergies Active Allergy Reactions Criticality Noted Date [...] atorvastatin (LIPITOR) 80 mg tabletIndications :Atherosclerosis of [place] coronary artery of [place] heart without angina pectoris,Hx of hyperlipidemia Take 1 tablet (80 mg total) by mouth in the morning. 90 tablet 3 024 Active ezetimibe (ZETIA) 10 mg tabletIndications :Atherosclerotic heart disease of [place] coronary artery with other forms of angina pectoris Take 1 tablet (10 mg total) by mouth in the morning. 90 tablet 1 025 Active empagliflozin (JARDIANCE) 10 mg tablet tabletIndications :Chronic heart failure with preserved ejection fraction (CMS-HCC),Atheros clerosis of [place] coronary artery of [place] heart without angina pectoris Take 1 tablet (10 mg total) by mouth in the morning. TAKE 1 TABLET (10 MG TOTAL) BY MOUTH IN THE MORNING. 90 tablet 1 025 Active cyanocobalamin 1000 MCG tablet Acti ve hydrOXYzine (ATARAX) 25 mg tablet Take 1 tablet (25 mg total) by mouth. 025 Active TRINTELLIX 10 mg tablet Take 1 tablet (10 mg total) by mouth. 025 Active pregabalin (LYRICA) 100 mg capsuleIndication s:Peripheral polyneuropathy TAKE 1 CAPSULE BY MOUTH IN THE MORNING AND 1 CAPSULE BEFORE BEDTIME 60 capsule 025 Active celecoxib (CeleBREX) 200 mg capsuleIndication s:Arthritis of left sacroiliac joint Take 1 capsule (200 mg total) by mouth in the morning. 30 capsule 2 025 Active pantoprazole (PROTONIX) 40 mg EC tabletIndications :Gastro-esophagea l reflux disease without esophagitis Take 1 tablet (40 mg total) by mouth every morning before breakfast. 90 tablet 025 Active furosemide (LASIX) 40 mg tabletIndications :Venous insufficiency of both lower extremities Take 1 tablet (40 mg total) by mouth daily. 30 tablet 2 025 Active pantoprazole (PROTONIX) 40 mg EC tabletIndications :Gastro-esophagea l reflux disease without esophagitis TAKE 1 TABLET BY MOUTH EVERY DAY IN THE MORNING BEFORE BREAKFAST 90 tablet 1 025 2024 Discontinued(R eorder) celecoxib (CeleBREX) 200 mg capsule 024 2024 Discontinued(R eorder) methocarbamoL (ROBAXIN) 750 mg tablet TAKE 1 TABLET BY MOUTH EVERY 12 HOURS FOR 30 DAYS for 30 2024 Discontinued(T herapy completed) propranoloL (INDERAL) 40 mg tabletIndications :Chronic heart failure with preserved ejection fraction (CMS-HCC) Take 1 tablet (40 mg total) by mouth in the morning and 1 tablet (40 mg total) before bedtime. 60 tablet 1 025 2024 Discontinued furosemide (LASIX) 40 mg tabletIndications :Venous insufficiency of both lower extremities Take 1 tablet (40 mg total) by mouth daily for 5 days. 5 tablet 025 2024 propranoloL (INDERAL) 40 mg tabletIndications :Chronic heart failure with preserved ejection fraction (CMS-HCC) Take 1 tablet (40 mg total) by mouth in the morning. 025 2024 Discontinued(T herapy completed) Active Problems Problem Noted Date Diagnosed Date [...] pain 08/14/2020 Atherosclerotic heart diseas e of [place] coronary artery with other forms of angina [...] disorder 04/15/2022 06/25/2023 Overview (04/15/2022): Apr 2009, swi stent placement Shortness of breath 11/05/2021 07/01/19 24 Hypotension due to hypovolemia 08/14/2020 11/05/2021 ASCVD (arteriosclerotic card iovascular disease) 01/30/2020 09/01/2022 Encounters Date Type Department Care Team Description 11/10/2024 Telephone [facility] - Family Medicine [address] [place] [address] Megan Talley, [facility] 11/07/2024 2:30 PM EDT Office Visit [facility] - Family Medicine [address] [place] [address] Michael Steiner, Hiatal hernia with GERD (Primary Dx); Stage 3a chronic kidney disease ([facility]); Patellar tendinitis of right knee; Gastro-esophageal reflux disease without esophagitis; Venous insufficiency of both lower extremities 11/07/2024 Travel 11/02/2024 8:12 AM EDT - 11/02/2024 11:59 PM EDT Hospital Encounter [facility] - Radiology [address] [place] [address] Nausea and vomiting, unspecified vomiting type Discharge Disposition: Home 11/02/2024 Results Follow-Up [facility] - Family Medicine [address] [place] [address] Michael Steiner DO Fluoroscopy upper GI with esophagus 11/01/2024 Telephone [facility] - Family Medicine [address] [place] [address] Juan Diego Esquivel, [facility] 10/31/2024 Travel 10/27/2024 4:15 PM EDT Office Visit [facility] - Family Medicine [address] [place] [address] Michael Steiner, Type 2 diabetes mellitus with stage 3a chronic kidney disease, without long-term current use of insulin ([facility]) (Primary Dx); Venous insufficiency of both lower extremities; Chronic heart failure with preserved ejection fraction ([facility]); Stage 3a chronic kidney disease ([facility]); Nausea and vomiting, unspecified vomiting type; Arthritis of left sacroiliac joint 10/27/2024 Travel 10/24/2024 Orders Only [facility] - Family Medicine [address] [place] [address] Michael Steiner DO Venous insufficiency of both lower extremities (Primary Dx) 10/24/2024 Telephone [facility] - Family Medicine [address] [place] [address] Gerri Megan, [employer] 10/13/2024 Refill [facility] - Family Medicine [address] [place] [address] Michael Steiner, Peripheral polyneuropathy 10/11/2024 Travel 10/07/2024 11:30 AM EDT Office Visit [facility] - [facility] [address] [facility] [place] [address] Michael Steiner DO Cervicogenic headache (Primary Dx); Orthostatic hypotension; Chronic heart failure with preserved ejection fraction (CMS-HCC); Fibromyalgia syndrome 10/06/2024 Travel 09/04/2024 Orders Only [facility] - Family Medicine [address] [place] [address] Michael Steiner DO 09/04/2024 Refill [facility] - Family Medicine [address] [place] [address] Michael Steiner, Peripheral polyneuropathy 09/01/2024 11:15 AM EDT Office Visit [facility] Cardiology [address] [place] [address] Myriam Peacock MD Chronic heart failure with preserved ejection fraction (CMS-HCC) (Primary Dx); Atherosclerotic heart disease of [place] coronary artery with other forms of angina pectoris; Hx of CABG 08/30/2024 Travel from Last 3 Months Immunizations No known immunizations Family History Medical History Relation Name Comments Alcohol abuse Father Dementia Father Cancer Maternal Grandmother Cervical cancer Maternal Grandmother Depression Mother Heart failure Mother Hypertension Mother Breast cancer Neg Hx Relation Name Status Comments Brother 1 Alive Brother 2 Alive Father Maternal Grandfather Maternal Grandmother Mother Paternal Grandfather Paternal Grandmother Social History Tobacco Use Types Packs/Day Years Used Date Smoking Tobacco: Former Cigarettes 1 40 0 09/1981 - 09/2021 Smokeless Tobacco: Never Tobacco Cessation:Counseling Given: Not Answered Comments:5-6 cigerettes a day Alcohol Use Standard Drinks/Week Comments Not Currently 0 (1 standard drink = 0.6 oz pur e alcohol) last use 15 years ago [facility] Utilities Answer Date Recorded In [...] often do you attend chur ch or buddhism services? More than 4 times [...] Answer Date Recorded Total Score 0 11/07/2024 [facility] Occupat ional Health - Occupational Stress [...] Mass Index 40.38 11/07/2024 2:17 PM EDT Plan of Treatment Upcoming Encounters Date Type Department Care Team (Late st Contact Info) Description 11/28/2024 2:00 PM EDT Office Visit [facility] - Heart Failure Clinic [address] [place] [address] Inez Cook, FOUNDRY HELPER-GRANITE CUTTER [address] [place] [address] 12/07/2024 2:00 PM EDT Office Visit [facility] - Family Medicine [address] [place] [address] Michael Steiner, DO [address] [place] [address] Health Maintenance Due Date Last Done Comments Diabetic Ophthalmology Exam 1960 Adult BMI Follow Up Plan 1980 Diabetic Foot Exam 1980 DTaP,Tdap and Td Vaccines (1 - Tdap) 1981 Pap Smear 02/18/2025 02/18/2022, 02/18/2022 Zoster (Shingles) Vaccine (1 of 2) 03/07/2025 Postponed from 2012 (Patient Refused) Adult BMI Screening 11/07/2025 11/07/2024 Depression Screening 11/07/2025 11/07/2024 Tobacco Screening 11/07/2025 11/07/2024 Influenza Vaccine Discontinued Goals Goal Patient Goal Type Associated Problems Recent Progress Patient-Stated? Author home General Yes Jimena Snider LSW Note: Evaluation of progress towards goal: under assessment Medical Devices Implanted Type Area Concrete Floor Installer Device Identifier Shelf Expiration Date Model / Serial / Lot Sj Xiencdillan Valenciaa 2.75x28 Rx - [id number] Implanted:Qty : 1 on 01/09/2020 by Yefri Khan MD at [facility] Stent N/A: Arterial GENTILE VASCULAR [id number] 07/20/2020 [id number] / / [id number] Sj Xience Jocelin 2.75x8 Rx - [id number] Implanted:Qty : 1 on 01/09/2020 by Yefri Khan MD at [facility] Stent N/A: Arterial GENTILE VASCULAR [id number] 10/24/2022 [id number] / / [id number] Procedures Procedure Name Priority Date/Time Associated Diagnosis Comments FL UGI WITH ESOPHAGUS Routine 11/02/2024 8:34 AM EDT Nausea and vomiting, unspecified vomiting type CBC WITH AUTO DIFFERENTIAL Routine 10/27/2024 4:57 PM EDT Stage 3a chronic kidney disease ([facility]) COMPREHENSIVE METABOLIC PANEL Routine 10/27/2024 4:57 PM EDT Type 2 diabetes mellitus with stage 3a chronic kidney disease, without long-term current use of insulin ([facility]) HEMOGLOBIN A1C Routine 10/27/2024 4:57 PM EDT Type 2 diabetes mellitus with stage 3a chronic kidney disease, without long-term current use of insulin ([facility]) PAP SMEAR Routine 02/18/2022 10:08 AM EDT Encounter for screening for malignant neoplasm of cervix Encounter for screening for human papillomavirus (HPV) from Last 3 Months or Most Recently Relevant to Health Maintenance Results * Fluoroscopy upper GI with esophagus [...] on 11/02/2024 10:14 AM Michael Steiner DO [facility] FLUOROSCOPY ORDERABLES Final Result * (ABNORMAL) CBC auto differential (10/27/2024 4:57 PM EDT) WBC 9.1 4 - 11 x10E9/L 10/27/2024 10:49 PM EDT [facility] RBC Count 4.73 3.8 - 5.2 X10E12/L 10/27/2024 10:49 PM EDT [facility] Hemoglobin 10.0(L) 11.7 - 15.5 g/dL 10/27/2024 10:49 PM EDT [facility] Hematocrit 32.9(L) 35 - 47 % 10/27/2024 10:49 PM EDT [facility] MCV 70(L) 80 - 100 fL 10/27/2024 10:49 PM EDT [facility] MCH 21.2(L) 27 - 34 pg 10/27/2024 10:49 PM EDT [facility] MCHC 30.4(L) 32 - 36 g/dL 10/27/2024 10:49 PM EDT [facility] RDW 20.4(H) 11.5 - 15 % 10/27/2024 10:49 PM EDT [facility] Platelet Count 334 150 - 450 X10E9/L 10/27/2024 10:49 PM EDT [facility] MPV 8.2 7 - 12 fL 10/27/2024 10:49 PM EDT [facility] Bands % 4 % 10/27/2024 10:49 PM EDT [facility] Comment:This is an appended report. These results have been appended to a previously preliminary verified report. Neutrophils % 70 % 10/27/2024 10:49 PM EDT [facility] Comment:This is an appended report. These results have been appended to a previously preliminary verified report. Lymphocytes % 21 % 10/27/2024 10:49 PM EDT [facility] Comment:This is an appended report. These results have been appended to a previously preliminary verified report. Monocytes % 2 % 10/27/2024 10:49 PM EDT [facility] Comment:This is an appended report. These results have been appended to a previously preliminary verified report. Eosinophils % 2 % 10/27/2024 10:49 PM EDT [facility] Comment:This is an appended report. These results have been appended to a previously preliminary verified report. Basophils % 1 % 10/27/2024 10:49 PM EDT [facility] Comment:This is an appended report. These results have been appended to a previously preliminary verified report. Neutrophils Absolute (M) 6.8(H) 1.5 - 6.6 10*3/uL 10/27/2024 10:49 PM EDT [facility] Comment:This is an appended report. These results have been appended to a previously preliminary verified report. Lymphocytes Absolute 1.9 1.0 - 3.5 10*3/uL 10/27/2024 10:49 PM EDT [facility] Comment:This is an appended report. These results have been appended to a previously preliminary verified report. Monocytes Absolute 0.2 0.0 - 0.9 10*3/uL 10/27/2024 10:49 PM EDT [facility] Comment:This is an appended report. These results have been appended to a previously preliminary verified report. Eosinophils Absolute 0.2 0.0 - 0.4 10*3/uL 10/27/2024 10:49 PM EDT [facility] Comment:This is an appended report. These results have been appended to a previously preliminary verified report. Basophils Absolute 0.1 0.0 - 0.2 10*3/uL 10/27/2024 10:49 PM EDT [facility] Comment:This is an appended report. These results have been appended to a previously preliminary verified report. RBC Morphology Reviewed 10/27/2024 10:49 PM EDT [facility] Comment:This is an appended report. These results have been appended to a previously preliminary verified report. Differential Type CELLAVISION DIFFERENTIAL 10/27/2024 10:49 PM EDT [facility] Comment:This is an appended report. These results have been appended to a previously preliminary verified report. Blood Venous blood / Unknown 10/27/2024 4:57 PM EDT 10/27/2024 4:57 PM EDT Michael Steiner DO LAB BLOOD ORDERABLES Final Resul t [facility] [address] [place] [address], [place] [phone] * (ABNORMAL) Hemoglobin A1c (10/27/2024 4:57 PM EDT) HEMOGLOBIN A1C 6.3(H) 4.4 - 5.6 % 10/28/2024 5:42 AM EDT [facility] Comment: ADA Guidelines Result HgbA1c Normal : less than 5.7 % Prediabetes : 5.7 % to 6.4 % Diabetes : > 6.4 % Use with caution in patients with abnormal hemoglobin variants as the half-life of red blood cells and in vivo glycation rates are affected. EST. AVERAGE GLUCOSE 134 mg/dL 10/28/2024 5:42 AM EDT [facility] Blood Venous blood / Unknown 10/27/2024 4:57 PM EDT 10/27/2024 4:57 PM EDT Michael Steiner DO LAB BLOOD ORDERABLES Final Resul t [facility] [address] [place] [address], * (ABNORMAL) Comprehensive metabolic panel (10/27/2024 4:57 PM EDT) SODIUM 143 134 - 146 mmol/L 10/27/2024 10:17 PM EDT [facility] POTASSIUM 4.4 3.5 - 5.0 mmol/L 10/27/2024 10:17 PM EDT [facility] CHLORIDE 102 98 - 109 mmol/L 10/27/2024 10:17 PM EDT [facility] CARBON DIOXIDE 34(H) 22 - 32 mmol/L 10/27/2024 10:17 PM EDT [facility] ANION GAP 7 5 - 15 mmol/L 10/27/2024 10:17 PM EDT [facility] BLOOD UREA NITROGEN 19 5 - 27 mg/dL 10/27/2024 10:17 PM EDT [facility] CREATININE 1.27(H) 0.40 - 1.00 mg/dL 10/27/2024 10:17 PM EDT [facility] Comment:METHOD TRACEABLE TO [facility] STANDARD GLUCOSE 114(H) 65 - 99 mg/dL 10/27/2024 10:17 PM EDT [facility] CALCIUM 9.3 8.5 - 10.5 mg/dL 10/27/2024 10:17 PM EDT [facility] TOTAL PROTEIN 7.6 6.0 - 8.0 g/dL 10/27/2024 10:17 PM EDT [facility] ALBUMIN 4.4 3.2 - 5.3 g/dL 10/27/2024 10:17 PM EDT [facility] ALKALINE PHOSPHATASE 100 39 - 130 U/L 10/27/2024 10:17 PM EDT [facility] AST 22 <=41 U/L 10/27/2024 10:17 PM EDT [facility] ALT 33(H) <=31 U/L 10/27/2024 10:17 PM EDT [facility] BILIRUBIN,TOTAL 0.3 0.3 - 1.2 mg/dL 10/27/2024 10:17 PM EDT [facility] EGFR Non-Race Dependent 48(L) >=60 ml/min/1.7 3sq.m 10/27/2024 10:17 PM EDT [facility] Comment: Reported eGFR is based on the CKD-EPI 2020 equation that does not use a race coefficient. Blood Venous blood / Unknown 10/27/2024 4:57 PM EDT 10/27/2024 4:57 PM EDT us Michael Steiner DO LAB BLOOD ORDERABLES Final Resul t [facility] [address] [place] [address], [place] [phone] * Pap Smear (02/18/2022 10:08 AM EDT) 02/18/2022 10:0 8 AM EDT 02/18/2022 10:09 AM EDT Narrative COPATH - 02/28/2022 1:19 PM EDT [facility] [address] [place] [address] Gynecologic Cytology Consultation Patient Name:MONET YORK:1960 (Age: 61)Gender:FTaken:02/18/2022eported:02/28/2022hysician(s):Ashtyn Hackett M.D. ([phone])Copy To: Rec. #:[id number]: #[id number] Final Cytologic Interpretation ThinPrep Pap Test (Not otherwise specified): Satisfactory for evaluation. NEGATIVE FOR INTRAEPITHELIAL LESION OR MALIGNANCY. jja/02/28/2022 Interpretation performed at [facility], [address] [place] [address], License number: [id number]. Electronically Signed Out By RAZIA Ambrosio(ASCP) Date of Last Menstrual Period: (None Given) Other Clinical Conditions: Z12.4 Screening for malignant neoplasm of cervix Z11.51 Screening for HPV Source of Specimen ThinPrep Pap Test (Not otherwise specified) Thin Prep Pap (SENIOR ACCOUNT EXECUTIVE) Fee Code(s): G0145 Ashtyn Hackett MD PATHOLOGY/CYTOLOGY ORDERABLES nal Result COPATH from Last 3 Months or Most Recently Relevant to Health Maintenance Insurance [place] MEDIC[place] Advance Directives Documents on File Type Date Recorded Patient Tire And Tube Repairer Expl anation Durable Power of Tank Terminal Gauger 05/15/2023 8:14 AM Living Will 12/19/2021 11:54 AM [place] Living Will 11/22/2021 1:59 PM Durable Power of Tank Terminal Gauger 11/22/2021 1:58 PM * Full Code (Latest [...] 10:09 PM 04/29/2023 6:44 PM Care Teams Segment Producer Relationship Specialty Start Date End Date Michael Steinre DO [address] [place] [address] PCP - General Internal Medicine 12/17/23
--- OUTSIDE RECORDS SUMMARY | 2024-11-14 10:20 | XMS_ITS | Encounter Summary ---
Author Organization [email or web address] Address [id number] [address] [place] [address] Care Team Providers Care Drug And Alcohol Counselor Name Role Phone Michael Steiner DO Primary Care Provider [phone] Encounter Details Date Type Department Care Team (Late st Contact Info) Description 01/26/2024 Orders Only [facility] Internal Medicine - Family Medicine [address] [place] [address] Michael Steiner DO [address] [place] [address] Peripheral polyneuropathy (Primary Dx) Social History Tobacco Use Types Packs/Day Years Used Date Smoking Tobacco: Former Cigarettes 1 40 0 09/1981 - 09/2021 Smokeless Tobacco: Never Comments:5-6 cigerettes a da y Alcohol Use Standard Drinks/Week Comments Not Currently 0 (1 standard drink = 0.6 oz pur e alcohol) last use 15 years ago [facility] Utilities Answer Date Recorded In the past 12 months has [employer], gas, oil, or water company threatened to [...] often do you attend chur ch or methodist services? More than 4 times per year [...] Answer Date Recorded Total Score 0 01/04/2024 [facility] Occupat ional Health - Occupational [...] 2:00 PM EDT Office Visit [facility] - Heart Failure Clinic [address] [place] [address] Inez Cook, GAS PLUMBING INSPECTOR-PAID INTERN [address] [place] [address] 12/07/2024 2:00 PM EDT Office Visit [facility] Internal [facility] - Family Medicine [address] [place] [address] Michael Steiner, [address] [facility] [place] [address] documented as of this encounter Goals Goal Patient Goal Type Associated Problems Recent Progress Patient-Stated? Author home General Yes Jimena Snider LSW Note: Evaluation of progress towards goal: under assessment documented as of this encounter Visit Diagnoses Diagnosis Peripheral polyneuropathy- Primary documented in this encounter Additional Health Concerns Assessment Noted Time PHQ-9 Depression Total Score: 0 01/04/20 1:01 PM EDT documented as of this encounter Care Teams Drug And Alcohol Counselor Relationship Specialty Start Date End Date Michael Steiner DO [address] [place] [address] PCP - General Internal Medicine 12/17/23 documented as of this encounter
--- OUTSIDE RECORDS SUMMARY | 2024-11-14 10:20 | XMS_ITS | Encounter Summary ---
Author Organization [facility] [employer] Address [id number] [address] [place] [address] Care Team Providers Care Inker Machine Name Role Phone Michael Steiner DO Primary Care Provider [phone] Encounter Details Date Type Department Care Team (Late st Contact Info) Description 07/31/2023 Telephone [facility] Pulmonary/Sleep Medicine [address] [address] Grace Meadows DO [address] [address] Social History Tobacco Use Types [...] Recorded In the past 12 months has [employer], gas, oil, or water company threatened [...] How often do you attend chur or adventist services? More than 4 times per year 07/25/2023 Do you belong to any clubs o r organizations such as lutheran groups, unions, fraternal or athletic groups, or [...] Answer Date Recorded Total Score 0 07/01/2023 [facility] Occupat ional Health - Occupational Stress [...] Description 11/28/2024 2:00 PM EDT Office Visit [facility] - Heart Failure Clinic [address] [place] [address] Inez Cook, PLATFORM ENGINEER-BEEF CATTLE FARMER [address] [place] [address] 12/07/2024 2:00 PM EDT Office Visit [facility] Internal Medicine - Family Medicine [address] [place] [address] Michael Steiner, [address] [facility] [place] [address] documented as of this encounter Visit Diagnoses Not on filedocumented in this encounter Additional Health Concerns Infection Onset Date Last Indicated Resolved Time COVID-19 Rule-Out 12/17/2023 12/17/2023 12/17/2023 1:50 PM EDT Assessment Noted Time PHQ-9 Depression Total Score: 0 07/01/19 24 2:19 PM EST documented as of this encounter Care Teams Inker Machine Relationship Specialty Start Date End Date Michael Steiner DO [address] [place] [address] PCP - General Internal Medicine 12/17/23 documented as of this encounter
--- OUTSIDE RECORDS SUMMARY | 2024-11-14 10:20 | XMS_ITS | Encounter Summary ---
Author Organization [employer] s tem Address [id number] [address] [place] [address] Care Team Providers Care Electric Needle Specialist Name Role Phone JoanMichael gonsalez Janae CABRERA Primary Care Provider [phone] Encounter Details Date Type Department Care Team (Late st Contact Info) Description 03/23/2024 Orders Only [facility] Internal Medicine - Family Medicine [address] [place] [phone] Sofya Coe CMA Chronic respiratory failure with hypoxia and hypercapnia ([facility]) Social History Tobacco Use Types Packs/Day Years Used Date Smoking Tobacco: Former Cigarettes 1 40 0 09/1981 - 09/2021 Smokeless Tobacco: Never Comments:5-6 cigerettes a da y Alcohol Use Standard Drinks/Week Comments Not Currently 0 (1 standard drink = 0.6 oz pur e alcohol) last use 15 years ago [facility] Utilities Answer Date Recorded In the past 12 months has [employer], gas, oil, or water [employer] threatened to shut off services in your [...] week 07/25/2023 How often do you attend [facility] or christian services? More than 4 times per year [...] Answer Date Recorded Total Score 0 01/04/2024 [facility] of Occupat ional Health - [...] Description 11/28/2024 2:00 PM EDT Office Visit [facility] - Heart Failure Clinic [address] [place] [address] Inez Cook, RN ANESTHESIOLOGY-PUBLIC HEALTH ASSISTANT [address] [place] [address] 12/07/2024 2:00 PM EDT Office Visit [facility] Internal Medicine - Family Medicine [address] [place] [phone] Michael Steiner DO [address] [place] [address] documented as of this encounter Goals Goal [...] in this encounter Results * [facility] [place] (03/17/2024) 03/17/2024 Michael Steiner DO OUTPATIENT REFERRAL ORDERABLES F inal Result MANUALLY TRANSCRIBED RESULTS documented in this encounter Visit Diagnoses Diagnosis Chronic respiratory failure with hypoxia and hypercapnia (CMS-HCC) documented in this encounter Additional Health Concerns Assessment Noted Time PHQ-9 Depression Total Score: 0 01/04/20 24 1:01 PM EDT documented as of this encounter Care Teams Electric Needle Specialist Relationship Specialty Start Date End Date Michael Steiner DO [address] [place] [address] PCP - General Internal Medicine 12/17/23 documented as of this encounter
--- OUTSIDE RECORDS SUMMARY | 2024-11-14 10:20 | XMS_ITS | Encounter Summary ---
Author Organization [employer] s tem Address [id number] [address] [place] [address] Care Team Providers Care Sfdc Technical Architect Name Role Phone Michael Steiner DO Primary Care Provider [phone] Encounter Details Date Type Department Care Team (Late st Contact Info) Description 03/07/2024 Orders Only [facility] Internal Medicine - Family Medicine [address] [place] [address] Michael Steiner DO [address] [place] [address] Chronic heart failure with preserved ejection fraction ([facility]-H[facility]) Social History Tobacco Use Types Packs/Day Years Used Date Smoking Tobacco: Former Cigarettes 1 40 0 09/1981 - 09/2021 Smokeless Tobacco: Never Comments:5-6 cigerettes a da y Alcohol Use Standard Drinks/Week Comments Not Currently 0 (1 standard drink = 0.6 oz pur e alcohol) last use 15 years ago [facility] Utilities Answer Date Recorded In the past 12 months has [employer], gas, oil, or water company threatened [...] often do you attend chur ch or sabianism services? More than 4 times per year [...] Answer Date Recorded Total Score 0 01/04/2024 [facility] of Occupat ional Health - Occupational Stress [...] Heart Failure Clinic [address] [place] [address] Inez Cook, QUALITY ASSURANCE QA LAB TECHNICIAN-SALES ADMINISTRATOR [address] [place] [address] 12/07/2024 2:00 PM EDT Office Visit [facility] Internal Medicine - Family Medicine [address] [place] [phone] Michael Steiner, [address] [place] [address] documented as of this encounter Goals Goal [...] documented as of this encounter Care Teams Sfdc Technical Architect Relationship Specialty Start Date End Date Michael Steiner DO [address] [place] [address] PCP - General Internal Medicine 12/17/23 documented as of this encounter
--- OUTSIDE RECORDS SUMMARY | 2024-11-14 10:20 | XMS_ITS | Encounter Summary ---
Author Organization [facility] [facility] Address [facility] [place][id number] [address] [place] [address] Care Team Providers Care Supervisor Reinforced Steel Placing Name Role Phone Michael Steiner DO Primary Care Provider Reason for Visit * Reason Comments Med Refill Encounter Details Date Type Department Care Team (Late st Contact Info) Description 06/28/2024 Refill [facility] Internal Medicine - Family Medicine [address] [place] [address] Michael Steiner DO [address] [place] [address] Spinal stenosis of lumbar region with neurogenic claudication Social History Tobacco Use Types Packs/Day Years Used Date Smoking Tobacco: Former Cigarettes 1 40 0 09/1981 - 09/2021 Smokeless Tobacco: Never Comments:5-6 cigerettes a da y Alcohol Use Standard Drinks/Week Comments Not Currently 0 (1 standard drink = 0.6 oz pur e alcohol) last use [address] [facility] Utilities Answer Date Recorded In the past 12 months has [employer], gas, oil, or water company threatened to [...] How often do you attend chur or oriental orthodox services? More than 4 [...] Answer Date Recorded Total Score 0 01/04/2024 [facility] of Occupat ional Health - Occupational Stress [...] Description 11/28/2024 2:00 PM EDT Office Visit [facility] - Heart Failure Clinic [address] [place] [address] Inez Cook, TEACHING ASSOCIATE-INSURANCE SALES PRODUCER [address] [place] [address] 12/07/2024 2:00 PM EDT Office Visit [facility] Internal Medicine - Family Medicine [address] [place] [phone] Michael Steiner DO [address] [place] [address] documented as of this encounter Goals Goal Patient Goal Type Associated Problems Recent Progress Patient-Stated? Author home General Yes Jimena Snider LSW Note: Evaluation of progress towards goal: under assessment documented as of this encounter Visit Diagnoses Diagnosis Spinal stenosis of lumbar region with neurogenic claudication documented in this encounter Additional Health Concerns Assessment Noted Time PHQ-9 Depression Total Score: 0 01/04/20 1:01 PM EDT documented as of this encounter Care Teams Supervisor Reinforced Steel Placing Relationship Specialty Start Date End Date Michael Steiner DO [address] [place] [phone] PCP - General Internal Medicine 12/17/23 documented as of this encounter
--- OUTSIDE RECORDS SUMMARY | 2024-11-14 10:20 | XMS_ITS | Encounter Summary ---
Author Organization [employer] Sys tem Address [id number] [address] [place] [address] Care Team Providers Care Pathology Lab Technician Name Role Phone Michael Steiner DO Primary Care Provider [phone] Reason for Visit * Reason Onset Date Comments PT Discharge 01/10/2020 Encounter Details Date Type Department Care Team (Late st Contact Info) Description 01/10/2020 [facility] [address] [place] [address] Jamie Rodriguez DO [address] [place] [address], [address] [place], [place] [phone] PT Discharge Social History Tobacco Use Types [...] week 01/09/2020 How often do you attend lutheran or roman catholic serv ices? Never 01/09/2020 Do you [...] Recorded Do you need help finding a [employer] career center and/or a training program? No [...] procedure list: per [facility]. Pt dcd from [facility] s/p CATH. Needs 7-10 day f/u. Orders to scheduling. car documented in this encounter Plan of Treatment Upcoming Encounters Date Type Department Care Team (Late st Contact Info) Description 11/28/2024 2:00 PM EDT Office Visit [facility] - Heart Failure Clinic [address] [place] [address] Inez Cook, TEST LAB TECHNICIAN-SYSTEMS ENGINEER [address] [place] [address] 12/07/2024 2:00 PM EDT Office Visit [facility] Internal Medicine - Family Medicine [address] [place] [phone] Michael Steiner, DO [address] [place] [address] documented as of this encounter Visit Diagnoses [...] documented as of this encounter Care Teams Pathology Lab Technician Relationship Specialty Start Date End Date Michael Steiner DO [address] [place] [address] PCP - General Internal Medicine 12/17/23 documented as of this encounter
--- OUTSIDE RECORDS SUMMARY | 2024-11-14 10:20 | XMS_ITS | Encounter Summary ---
Author Organization [employer] s tem Address [id number] [address] [place] [address] Care Team Providers Care Smelting Engineer Name Role Phone Michael Steiner DO Primary Care Provider [phone] Encounter Details Date Type Department Care Team (Late st Contact Info) Description 01/25/2024 [facility] Family Medicine [address] [place] [phone] Juan Diego Esquivel CMA Social History Tobacco Use Types Packs/Day Years Used Date Smoking Tobacco: Former Cigarettes 1 40 0 09/1981 - 09/2021 Smokeless Tobacco: Never Comments:5-6 cigerettes a da y Alcohol Use Standard Drinks/Week Comments Not Currently 0 (1 standard drink = 0.6 oz pur e alcohol) last use 15 years ago [facility] Utilities Answer Date Recorded In the past 12 months has [employer], gas, oil, or water [employer] threatened to shut off services in your [...] week 07/25/2023 How often do you attend [facility] or baptism services? More than 4 times per year [...] Description 11/28/2024 2:00 PM EDT Office Visit [facility] - Heart Failure Clinic [address] [place] [phone] Inez Cook, REMELT FURNACE EXPEDITER-COAL PIPELINE OPERATOR [address] [place] [address] 12/07/2024 2:00 PM EDT Office Visit [facility] Internal Medicine - Family Medicine [address] [place] [phone] Michael Steiner DO [address] [facility] [place] [address] documented as of this encounter Goals Goal [...] documented as of this encounter Care Teams Smelting Engineer Relationship Specialty Start Date End Date Michael Steiner DO [address] [facility] [place] [address] PCP - General Internal Medicine 12/17/23 documented as of this encounter
--- OUTSIDE RECORDS SUMMARY | 2024-11-14 10:20 | XMS_ITS | Patient Health Record ---
Author Organization [facility] [place] Address [address] [place] [address] Care Team Providers Care Denial Management Representative Name Role Phone None, Unknown or Primary Care Provider Unavailab le Reason For Referral No Information Plan Of Treatment No Information Insurance Providers Payer Name Payer Address Payer Phone Subscriber Number Group Number Insured Name Patient Relationship to Insured Coverage Start Date Coverage End Date [facility] PRIMARY MEDICARE [address] [place] [address] [id number] Monet Recinos Self - patient is the insured MEDICAID [place] 2ND INS [address] OFF[place] OF [place], [place] [id number] Monet Recinos Self - patient is the insured
--- OUTSIDE RECORDS SUMMARY | 2024-11-14 10:20 | XMS_ITS | Encounter Summary ---
Author Organization [employer] Address [facility][id number] [address] [place] [address] Care Team Providers Care Unionmelt Operator Name Role Phone Michael Steiner DO Primary Care Provider [phone] Encounter Details Date Type Department Care Team (Late st Contact Info) Description 02/03/2024 Telephone [facility] Pulmonary/Sleep Medicine [address] [phone] Shari Garcia RN Social History Tobacco Use Types Packs/Day Years Used Date Smoking Tobacco: Former Cigarettes 1 40 0 09/1981 - 09/2021 Smokeless Tobacco: Never Comments:5-6 cigerettes a da y Alcohol Use Standard Drinks/Week Comments Not Currently 0 (1 standard drink = 0.6 oz pur e alcohol) last use 15 years ago [facility] Utilities Answer Date Recorded In the past 12 months has [employer], gas, oil, or water [email or web address] threatened to shut off services in your [...] How often do you attend [facility] or orthodoxy services? More than 4 times [...] Date Recorded Total Score 0 01/04/2024 [facility] of Occupat ional [...] help finding a [facility] career center and/or a [...] line and requested a script fo POC. [facility] will only accept oxygen script from a Obstetric Anaesthetist. Patient was to be seen in our office on 01-14-24. Office appt was cancelled d/t patient insurance isnot accepted at our office. Patient will need to contact her insurance company and find out what risk control director will be covered under her insurance. Then contact Dr Steiner for a referral. Norma agreeable documented in this encounter Plan of Treatment Upcoming Encounters Date Type Department Care Team (Late st Contact Info) Description 11/28/2024 2:00 PM EDT Office Visit [facility] - Heart Failure Clinic [address] [place] [address] Inez Cook, MINERAL ORE PROCESSING LABOURER-DRYWALL APPLICATOR [address] [place] [address] 12/07/2024 2:00 PM EDT Office Visit [facility] Internal Medicine - Family Medicine [address] [place] [address] Michael Steiner DO [address] [place] [address] documented as of this encounter Goals Goal [...] documented as of this encounter Care Teams Unionmelt Operator Relationship Specialty Start Date End Date Michael Steiner DO [address] [facility] [address] PCP - General Internal Medicine 12/17/23 documented as of this encounter
--- OUTSIDE RECORDS SUMMARY | 2024-11-14 10:20 | XMS_ITS | Encounter Summary ---
Author Organization [employer] Sys [employer] Address [id number] [address] [place] [address] Care Team Providers Care Vamp Marker Name Role Phone Obdulia Michael Janae CABRERA Primary Care Provider [phone] Encounter Details Date Type Department Care Team (Late st Contact Info) Description 07/30/2023 Telephone [facility] Pulmonary/Sleep Medicine [address] [place] [phone] Shari Garcia RN Social History Tobacco Use Types Packs/Day Years Used Date Smoking Tobacco: Former Cigarettes 1 40 0 09/1981 - 09/2021 Smokeless Tobacco: Former Chew Comments:5-6 cigerettes a da y Alcohol Use Standard Drinks/Week Comments Not Currently 0 (1 standard drink = 0.6 oz pur e alcohol) last use 15 years ago [facility] Utilities Answer Date Recorded In the past 12 months has [employer], gas, oil, or water [employer] threatened to shut off services in your [...] 07/25/2023 How often do you attend [facility] or cheondoism services? More than 4 times per year 07/25/2023 Do you belong to any clubs o r organizations such as mosque groups, unions, fraternal or athletic groups, or [...] Answer Date Recorded Total Score 0 07/01/2023 [facility] of Occupat ional Health - Occupational [...] Recorded Do you need help finding a [facility] career center and/or a training [...] review and advise * Telephone Encounter - Grcae Meadows DO - 07/30/2023 4:02 PM EDT [...] Faxed order for conserver device testing to [facility] documented in this encounter Plan of Treatment Upcoming Encounters Date Type Department Care Team (Late st Contact Info) Description 11/28/2024 2:00 PM EDT Office Visit [facility] - Heart Failure Clinic [address] [place] [phone] Inez Cook, CORPORATE DEVELOPMENT ASSOCIATE-TIMBER TREATING TANK OPERATOR [address] [place] [phone] 12/07/2024 2:00 PM EDT Office Visit [facility] Internal Medicine - Family Medicine [address] [place] [address] Michael Steiner DO [address] [place] [address] documented as of this encounter Visit Diagnoses Not on filedocumented in this encounter Additional Health Concerns Infection Onset Date Last Indicated Resolved Time COVID-19 Rule-Out 12/17/2023 12/17/2023 12/17/2023 1:50 PM EDT Assessment Noted Time PHQ-9 Depression Total Score: 0 07/01/19 2:19 PM EST documented as of this encounter Care Teams Vamp Marker Relationship Specialty Start Date End Date Michael Steiner DO [address] [place] [address] PCP - General Internal Medicine 12/17/23 documented as of this encounter
--- OUTSIDE RECORDS SUMMARY | 2024-11-14 10:20 | XMS_ITS | Encounter Summary ---
Author Organization [employer] s tem Address [facility] [place]-[id number] [address] [place] [address] Care Team Providers Care Chief Clerk Name Role Phone Michael Steiner DO Primary Care Provider [phone] Encounter Details Date Type Department Care Team (Late st Contact Info) Description 08/11/2023 [facility]phone [facility] Family Medicine [address] [place] [phone] Juan Diego Esquivel CMA Social History Tobacco [...] Recorded In the past 12 months has [employer], gas, oil, or water [email or web address] threatened to shut off services in your [...] How often do you attend [facility] or buddhist services? More than 4 [...] Answer Date Recorded Total Score 0 08/10/2023 [facility] of Occupat ional Health - [...] wouldlike to go to Dr Jair Balbuena [address] [place] [address] fax number is [phone]. * Telephone Encounter - Michael Steiner DO [...] 11/28/2024 2:00 PM EDT Office Visit [facility] - Heart Failure Clinic [address] [place] [address] Inez Cook, FILM WRITER-MOTORS ASSEMBLER [address] [place] [phone] 12/07/2024 2:00 PM EDT Office Visit [facility] Internal Medicine - Family Medicine [address] [place] [address] Michael Steiner DO [address] [place] [address] documented as of this encounter Visit Diagnoses Not on filedocumented in this encounter Additional Health Concerns Infection Onset Date Last Indicated Resolved Time COVID-19 Rule-Out 12/17/2023 12/17/2023 12/17/2023 1:50 PM EDT Assessment Noted Time PHQ-9 Depression Total Score: 0 08/10/19 1:05 PM EDT documented as of this encounter Care Teams Chief Clerk Relationship Specialty Start Date End Date Michael Steiner DO [address] [place] [address] PCP - General Internal Medicine 12/17/23 documented as of this encounter
--- OUTSIDE RECORDS SUMMARY | 2024-11-14 10:20 | XMS_ITS | Encounter Summary ---
Author Organization [employer] Sys [employer] Address [id number] [address] [place] [address] Care Team Providers Care Medical Records Director Name Role Phone Michael Steiner DO Primary Care Provider [phone] Encounter Details Date Type Department Care Team (Late st Contact Info) Description 07/09/2023 Orders Only [facility] Internal Medicine - Family Medicine [address] [place] [address] Michael Steiner DO [address] [place] [address] Chronic heart failure with preserved ejection fraction ([facility]) Social History Tobacco Use Types [...] week 01/09/2020 How often do you attend tenriism or synagogue serv ices? Never 01/09/2020 Do you belong to any clubs o r organizations such as tenriism groups, unions, fraternal or athletic groups, or [...] Recorded Do you need help finding a [employer] career center and/or a training program? No [...] Description 11/28/2024 2:00 PM EDT Office Visit [facility] - Heart Failure Clinic [address] [place] [address] Inez Cook, CHASSIS MECHANIC-AVIONICS INTEGRATION ENGINEER [address] [place] [address] 12/07/2024 2:00 PM EDT Office Visit [facility] Internal Medicine - Family Medicine [address] [facility] [place] [address] Michael Steiner DO [address] [place] [address] documented as of this encounter Visit Diagnoses [...] documented as of this encounter Care Teams Medical Records Director Relationship Specialty Start Date End Date Michael Steiner DO [address] [place] [address] PCP - General Internal Medicine 12/17/23 documented as of this encounter
--- OUTSIDE RECORDS SUMMARY | 2024-11-14 10:20 | XMS_ITS | Encounter Summary ---
Author Organization [employer] Sys tem Address [id number] [address] [place] [address] Care Team Providers Care Nursing Unit Clerk Name Role Phone Michael Steiner DO Primary Care Provider [phone] Encounter Details Date Type Department Care Team (Late st Contact Info) Description 02/06/2021 [facility] [address] [place] [phone] Ching Gay RN Social History Tobacco Use [...] week 01/09/2020 How often do you attend methodist or methodist serv ices? Never 01/09/2020 Do you belong to any clubs o r organizations such as methodist groups, unions, fraternal or athletic groups, or [...] Recorded Do you need help finding a [employer] career center and/or a training program? No [...] Description 11/28/2024 2:00 PM EDT Office Visit [facility] - Heart Failure Clinic [address] [place] [address] Inez Cook, CAMPUS RECRUITER-CUSTOM FURRIER [address] [place] [address] 12/07/2024 2:00 PM EDT Office Visit [facility] Internal Medicine - Family Medicine [address] [place] [address] Michael Steiner DO [address] [place] [address] documented as of this encounter Visit Diagnoses [...] documented as of this encounter Care Teams Nursing Unit Clerk Relationship Specialty Start Date End Date Michael Steiner DO [address] [place] [address] PCP - General Internal Medicine 12/17/23 documented as of this encounter
--- OUTSIDE RECORDS SUMMARY | 2024-11-14 10:20 | XMS_ITS | Encounter Summary ---
Author Organization [facility] tem Address [id number] [address] [place] [address] Care Team Providers Care Surgical Scrub Tech Name Role Phone Michael Steiner DO Primary Care Provider [phone] Reason for Referral * Consultation (Routine) - Pending Review Specialty Diagnoses / Procedures Referred By Rick t Referred To Contact Pulmonary Medicine Diagnoses Chronic respiratory failure with hypoxia and hypercapnia (CMS-HCC) Michael Steiner DO [address] [place] [address] Phone: tel: fax: Sydnie Guerrero DO [address] [place] [address] Phone: tel: fax: Referral ID Status Reason Start Date Expiration Date Visits Requested Visits Authorized [id number] Pending Review Specialty Services Required 02/08/2025 1 1 Encounter Details Date Type Department Care Team (Late st Contact Info) Description 02/09/2024 Orders Only [facility] Internal Medicine - Family Medicine [address] [place] [address] Michael Steiner DO [address] [place] [address] Chronic respiratory failure with hypoxia and hypercapnia (CMS-HCC) (Primary Dx) Social History Tobacco Use Types Packs/Day Years Used Date Smoking Tobacco: Former Cigarettes 1 40 0 09/1981 - 09/2021 Smokeless Tobacco: Never Comments:5-6 cigerettes a da y Alcohol Use Standard Drinks/Week Comments Not Currently 0 (1 standard drink = 0.6 oz pur e alcohol) last use 15 years ago [facility] Utilities Answer Date Recorded In the past 12 months has th e [employer], gas, oil, or water [employer] threatened to shut off services in your [...] you attend [facility] or baptist services? More than 4 times per year [...] Answer Date Recorded Total Score 0 01/04/2024 [facility] of Occupat ional Health - Occupational Stress [...] Description 11/28/2024 2:00 PM EDT Office Visit [facility] - [facility] Failure Clinic [address] [place] [phone] Inez Cook, CANDY CATCHER-TOBACCO DIPPER [address] [place] [phone] 12/07/2024 2:00 PM EDT Office Visit [facility] - Family Medicine [address] [place] [address] Michael Steiner DO [address] [place] [address] documented as of this encounter Goals Goal Patient Goal Type Associated Problems Recent Progress Patient-Stated? Author home General Yes Jimena Snider LSW Note: Evaluation of progress towards goal: under assessment documented as of this encounter Results * [facility] - [place], [place] (03/17/2024) 03/17/2024 Michael Steiner DO OUTPATIENT REFERRAL ORDERABLES F inal Result MANUALLY TRANSCRIBED RESULTS documented in this encounter Visit Diagnoses Diagnosis Chronic respiratory failure with hypoxia and hypercapnia (CMS-HCC)- Primary documented in this encounter Additional Health Concerns Assessment Noted Time PHQ-9 Depression Total Score: 0 01/04/20 1:01 PM EDT documented as of this encounter Care Teams Surgical Scrub Tech Relationship Specialty Start Date End Date Michael Steiner DO [address] [place] [address] PCP - General Internal Medicine 12/17/23 documented as of this encounter
--- OUTSIDE RECORDS SUMMARY | 2024-11-14 10:20 | XMS_ITS | Encounter Summary ---
Author Organization [employer] [facility] tem Address [id number] [address] [place] [address] Care Team Providers Care Cement Worker Name Role Phone JoanMichael gonsalez Janae CABRERA Primary Care Provider [phone] Encounter Details Date Type Department Care Team (Late st Contact Info) Description 08/03/2023 Orders Only [facility] Pulmonary/Sleep Medicine [address] [phone] Thang Vora RN Chronic hypoxic respiratory failure ([facility]-H[facility]) (Primary Dx) Social History Tobacco Use Types Packs/Day Years Used Date Smoking Tobacco: Former Cigarettes 1 40 0 09/1981 - 09/2021 Smokeless Tobacco: Former Chew Comments:5-6 cigerettes a da y Alcohol Use Standard Drinks/Week Comments Not Currently 0 (1 standard drink = 0.6 oz pur e alcohol) last use 15 years ago [facility] Utilities Answer Date Recorded In the past 12 months has th [employer], gas, oil, or water [employer] threatened to shut off services in your [...] 07/25/2023 How often do you attend [facility] or gnosticism services? More than 4 times per year [...] Answer Date Recorded Total Score 0 07/01/2023 [facility] of Occupat [...] - Heart Failure Clinic [address] [place] [phone] Inez Cook, AUTOMOTIVE TECHNICIAN INSTRUCTOR-TRUCK BODY BUILDER [address] [place] [phone] 12/07/2024 2:00 PM EDT Office Visit [facility] Internal [facility] - Family Medicine [address] [place] [phone] Michael Steiner DO [address] [place] [address] documented as of this encounter Visit Diagnoses Diagnosis Chronic hypoxic respiratory failure (CMS-HCC)- Primary documented in this encounter Additional Health Concerns Infection Onset Date Last Indicated Resolved Time COVID-19 Rule-Out 12/17/2023 12/17/2023 12/17/2023 1:50 PM EDT Assessment Noted Time PHQ-9 Depression Total Score: 0 07/01/19 2:19 PM EST documented as of this encounter Care Teams Cement Worker Relationship Specialty Start Date End Date Michael Steiner DO [address] [place] [address] PCP - General Internal Medicine 12/17/23 documented as of this encounter
--- OUTSIDE RECORDS SUMMARY | 2024-11-14 10:20 | XMS_ITS | Encounter Summary ---
Author Organization [facility] Address [id number] [address] [place] [address] Care Team Providers Care Grades 1 Through 6 Teacher Name Role Phone Michael Steiner DO Primary Care Provider [phone] Reason for Visit * Reason Onset Date Comments Med Refill 02/24/2024 Encounter Details Date Type Department Care Team (Late st Contact Info) Description 02/24/2024 Refill [facility] Internal Medicine - Family Medicine [address] [place] [address] Michael Steiner DO [address] [place] [address] Peripheral polyneuropathy Social History Tobacco Use Types Packs/Day Years Used Date Smoking Tobacco: Former Cigarettes 1 40 0 09/1981 - 09/2021 Smokeless Tobacco: Never Comments:5-6 cigerettes a da y Alcohol Use Standard Drinks/Week Comments Not Currently 0 (1 standard drink = 0.6 oz pur e alcohol) last use 15 years ago [facility] Utilities Answer Date Recorded In the past 12 months has [employer], gas, oil, or water company threatened to [...] How often do you attend chur or jew services? More than 4 times per year 07/25/2023 Do you belong to any clubs o r organizations such as rastafari groups, unions, fraternal or athletic groups, or [...] Answer Date Recorded Total Score 0 01/04/2024 [facility] of Occupat ional Health - Occupational Stress [...] Description 11/28/2024 2:00 PM EDT Office Visit [facility] - Heart Failure Clinic [address] [place] [phone] Inez Cook, TRACK COACH-BURN OUT SCARFING OPERATOR [address] [place] [address] 12/07/2024 2:00 PM EDT Office Visit [facility] Internal [facility] - Family Medicine [address] [facility] [place] [phone] Michael Steiner DO [address] [place] [address] documented as of this encounter Goals Goal Patient Goal Type Associated Problems Recent Progress Patient-Stated? Author home General Yes Jimena Snider LSW Note: Evaluation of progress towards goal: under assessment documented as of this encounter Visit Diagnoses Diagnosis Peripheral polyneuropathy documented in this encounter Additional Health Concerns Assessment Noted Time PHQ-9 Depression Total Score: 0 01/04/20 1:01 PM EDT documented as of this encounter Care Teams Grades 1 Through 6 Teacher Relationship Specialty Start Date End Date Michael Steiner DO [address] [place] [phone] PCP - General Internal Medicine 12/17/23 documented as of this encounter
--- OUTSIDE RECORDS SUMMARY | 2024-11-14 10:20 | XMS_ITS | Encounter Summary ---
Author Organization [facility] Address [id number] [address] [place] [address] Care Team Providers Care Counter Person Name Role Phone JoanMichael gonsalez Janae CABRERA Primary Care Provider [phone] Reason for Visit * Reason Onset Date Comments Transition Of Care 07/28/2023 Encounter Details Date Type Department Care Team (Late st Contact Info) Description 07/28/2023 [facility] [address] [place] [phone] Joan Gunderson RN Transition Of Care Social [...] How often do you attend [facility] or jewish services? More than 4 times [...] Date Recorded Total Score 0 07/01/2023 [facility] of Occupat ional Health - [...] Recorded Do you need help finding a [facility] career center and/or a training program? [...] Discharge Specialty: Pulmonology Name of Discharging Facility: [facility] Date of Facility Discharge: 07.25.23-07.27.23 Date of Interactive Contact and Name of Hand Molder And Caster: 07.28.23 [id number] Spoke with the patient. Medication Review Completed: [...] Heart Failure Clinic [address] [place] [address] Inez Cook, TOBACCO PACKER-MONOGRAM OPERATOR [address] [place] [address] 12/07/2024 2:00 PM EDT Office Visit [facility] Internal [facility] - Family Medicine [address] [place] [phone] Michael Steiner DO [address] [place] [address] documented as of this encounter Visit Diagnoses Not on filedocumented in this encounter Additional Health Concerns Infection Onset Date Last Indicated Resolved Time COVID-19 Rule-Out 12/17/2023 12/17/2023 12/17/2023 1:50 PM EDT Assessment Noted Time PHQ-9 Depression Total Score: 0 07/01/19 2:19 PM EST documented as of this encounter Care Teams Counter Person Relationship Specialty Start Date End Date Michael Steiner DO [address] [place] [address] PCP - General Internal Medicine 12/17/23 documented as of this encounter
--- OUTSIDE RECORDS SUMMARY | 2024-11-14 10:20 | XMS_ITS | Encounter Summary ---
Author Organization [facility] tem Address [id number] [address] [place] [address] Care Team Providers Care Senior Manager [employer] Name Role Phone Michael Steiner DO Primary Care Provider [phone] Reason for Referral * Misc (Routine) - Closed Specialty Diagnoses / Procedures Referred By Contac t Referred To Contact Diagnoses Chronic respiratory failure with hypoxia and hypercapnia (CMS-HCC) Procedures Oxygen Therapy Michael Steiner DO [address] [place] [address] Phone: tel: fax: Referral ID Status Reason Start Date Expiration Date Visits Re quested Visits Authorized [id number] Closed 08/13/2023 08/12/2024 1 1 Encounter Details Date Type Department Care Team (Late st Contact Info) Description 08/13/2023 Orders Only [facility] Internal Medicine - Family Medicine [address] [place] [phone] Michael Steiner DO [address] [place] [address] Chronic respiratory failure with hypoxia and hypercapnia (CMS-HCC) (Primary Dx) Social History Tobacco Use Types Packs/Day Years Used Date Smoking Tobacco: Former Cigarettes 1 40 0 09/1981 - 09/2021 Smokeless Tobacco: Former Chew Comments:5-6 cigerettes a da y Alcohol Use Standard Drinks/Week Comments Not Currently 0 (1 standard drink = 0.6 oz pur e alcohol) last use 15 years ago [facility] Utilities Answer Date Recorded In [...] often do you attend chur ch or adventism services? More than 4 times per year [...] Answer Date Recorded Total Score 0 08/10/2023 [facility] of Occupat ional Health - Occupational Stress [...] help finding a [facility] [employer] center and/or a training program? No 07/25/2023 [...] Heart Failure Clinic [address] [place] [address] Inez Cook, TOXICOLOGY TEACHER-CELERY CUTTER [address] [place] [address] 12/07/2024 2:00 PM EDT Office Visit [facility] - Family Medicine [address] [place] [phone] Michael Steiner DO [address] [place] [address] documented as of this encounter Visit Diagnoses Diagnosis Chronic respiratory failure with hypoxia and hypercapnia (CMS-HCC)- Primary documented in this encounter Additional Health Concerns Infection Onset Date Last Indicated Resolved Time COVID-19 Rule-Out 12/17/2023 12/17/2023 12/17/2023 1:50 PM EDT Assessment Noted Time PHQ-9 Depression Total Score: 0 08/10/19 1:05 PM EDT documented as of this encounter Care Teams Senior Manager [employer] Relationship Specialty Start Date End Date Michael Steiner DO [address] [place] [address] PCP - General Internal Medicine 12/17/23 documented as of this encounter
[2024-11-14 10:36] VITALS: BP 155/82; PULSE 89; TEMP 36.8; O2SAT 93
[2024-11-14 11:25] VITALS: BP 146/67; PULSE 93; O2SAT 90
[2024-11-14] MEDS: IOHEXOL 240 MG/ML - 10 ML VIAL 24 MG INJ (11:28)
[2024-11-14] MEDS: BUPIVACAINE HCL 0.25% PF 25 MG/10 ML VIAL 4 ML INJ (11:28)
[2024-11-14] MEDS: METHYLPREDNISOLONE ACETATE 40 MG/ML VIAL 80 MG INJ (11:28)
[2024-11-14] MEDS: LIDOCAINE HCL 2% 400 MG/20 ML MDV INJ (11:28)
--- NOTE | 2024-11-14 11:29 | W.PM.PROCNOT ---
Date of procedure: 11/14/24 Pre-op diagnosis: Pain due to bilateral sacroiliitis Post-op diagnosis: same as pre-op Procedure: Procedure: Bilateral sacroiliac joint injection Medications: Bupivacaine 0.25% 3cc, depomedrol 40mg x2 After informed consent was obtained, the patient was brought to the medical procedure unit and placed in the prone position, when a timeout was completed verifying correct patient, procedure, site, positioning, implant, and/or special equipment.? The skin overlying the area was prepped and draped in standard sterile fashion using alcohol.? A 25-gauge needle was inserted towards the left sacroiliac joint under direct fluoroscopic imaging.? Needle tip was advanced until the joint was encountered.? We instilled a total of 2 mL of solution.? The same procedure was then completed on the right side.? Postoperatively needles were removed.? The patient tolerated the procedure well without complication.? The patient reported reduction in pain symptoms postoperatively. Anesthesia: Local Surgeon: Ligia Root Pathology: none sent Condition: stable Disposition: no change
[2024-11-14 11:30] VITALS: PULSE 87; O2SAT 98
[2024-11-14 11:31] VITALS: BP 179/90
== END 2024-11-14 11:35 | disposition home or self-care (01) ==
LOC: SURGOUT 10:16
PROVIDERS: PCP Internal Medicine; Visit Provider Anesthesiology
DX: M46.1 Sacroiliitis, not elsewhere classified (principal)
CPT/HCPCS: 27096; J0665; J1010; Q9966

== ENCOUNTER 2024-12-19 13:34 | Outpatient (OUT) | payer MEDICARE, MEDICAID, SELFPAY ==
--- OUTSIDE RECORDS SUMMARY | 2024-12-04 06:44 | XMS_ITS | Encounter Summary ---
Author Organization [employer] Address [id number] [place] [address] Care Team Providers Care Construction Plumber Name Role Phone Michael Steiner DO Primary Care Provider [phone] Reason for Referral * Misc (Routine) - Pending Review Specialty Diagnoses / Procedures Referred By Contac t Referred To Contact Procedures Discharge Follow-Up Michael Steiner DO [address] [place] [address] Phone: tel: fax: Referral ID Status Reason Start Date Expiration Date V isits Requested Visits Authorized [id number] Pending Review 12/06/2024 12/06/2025 1 1 * Misc (Routine) - Pending Review Specialty Diagnoses / Procedures Referred By Contac t Referred To Contact Diagnoses Acute on chronic respiratory failure with hypoxia and hypercapnia (CMS-HCC) Pulmonary hypertension (CMS-HCC) Stage 3a chronic kidney disease (CMS-HCC) Procedures Follow-up with primary care provider Michael Steiner DO [address] [place] [address] Phone: tel: fax: Referral ID Status Reason Start Date Expiration Date V isits Requested Visits Authorized [id number] Pending Review 12/06/2024 12/06/2025 1 1 * Misc (Routine) - Pending Review Specialty Diagnoses / Procedures Referred By Rick rahman Referred To Contact Procedures Adult diet Michael Steiner, DO [address] [place] [address] Phone: tel: fax: Referral ID Status Reason Start Date Expiration Date V isits Requested Visits Authorized [id number] Pending Review 12/06/2024 12/06/2025 1 1 Reason for Visit * Reason Comments Shortness of Breath Pt left this hospita l AMA this morning. Comes back via EMS. Lethargic and low SPO2. * Auth/Cert Specialty Diagnoses / Procedures Referred By Rick rahman Referred To Contact Diagnoses SOB (shortness of breath) Acute on chronic respiratory failure with hypoxia and hypercapnia (CMS-HCC) [facility] - Emergency [address] [place] [address] Phone: tel: fax: Referral ID Status Reason Start Date Expiration Date Visits Re quested Visits Authorized [id number] 1 1 Encounter Details Date Type Department Care Team (Late st Contact Info) Description 12/04/2024 6:44 AM EDT - 12/06/2024 11:45 AM EDT Hospital Encounter [facility] - Acute Care [address] [place] [id number] Patrick Bal, DO [address] [place] [address] Michael Steiner, [address] [place] [address] Acute on chronic respiratory failure with hypoxia and hypercapnia (CMS-HCC) (Primary Dx); Pneumonia due to infectious organism, unspecified laterality, unspecified part of lung; Peripheral polyneuropathy; Pulmonary hypertension ([facility]); Chronic respiratory failure with hypoxia and hypercapnia ([facility]); Stage 3a chronic kidney disease ([facility]) Discharge Disposition: Home Health Social History Tobacco Use Types Packs/Day Years [...] shut off services in your home? No 12/04/2024 Social Connection and Isolat ion Panel [NHANES] Answer Date Recorded In a typical week, how many times do you talk on the phone with family, friends, or neighbors? Three times a week 07/25/2023 How often do you get togethe r with friends or relatives? Three times a week 07/25/2023 How often do you attend chur ch or lutheran services? More than 4 times [...] food, housing, medical care, and heating? Not very hard 12/04/2024 PHQ-2 Answer Date Recorded Total Score 0 11/07/2024 [place] [employer] - Occupational Stress [...] medical appointments or from getting medications? No 11/25 In the past 12 months, has l ack of transportation kept you from meetings, work, or from getting things needed for daily living? No 12/04/2024 Housing Instability Answer Date Recorde d Are you worried or concerned that in the next two months you may not have stable housing that you own, rent or stay in as a part of a household? No 12/04/2024 Childcare Answer Date Recorded Do problems getting child ca re make 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 to work or study? No 12/04/2024 Employment Answer Date Recorded Do you need help finding a [facility] career center and/or a training program? No 12/04/2024 Hunger Screening Answer Date Recorded Within the past 12 months we worried whether our food would run out before we got money to buy more. Never True 12/05/2024 Within the past 12 months th e food we bought just didn't last and we didn't have money to get more. Never True 12/05/2024 Purpose - Life Answer Date Recorded I [...] Sign Reading Time Taken Comments Blood Pressure 154/65 12/06/2024 10:00 AM EDT Pulse 75 12/06/2024 10:00 AM EDT Temperature 36.3 C (97.4 F) 12/06/2024 7:30 AM EDT Respiratory Rate 20 12/06/2024 8:55 AM EDT Oxygen Saturation 96% 12/06/2024 10: 00 AM EDT Inhaled Oxygen Concentration - - Weight 117.4 kg (258 lb 13.1 oz) 12/04/2024 9:28 AM EDT Height 175.3 cm (5' 9 ) 12/04/2024 9:28 AM EDT Body Mass Index 38.22 12/04/2024 9:28 AM EDT documented in this encounter Functional Status documented as of this encounter Discharge Summaries * Michael Steiner DO - 12/06/2024 10:32 AM EDT HOSPITAL DISCHARGE NOTE Patient Name: Monet Recinos : 1960 PCP: Mcihael Steiner Jr, DO Date of admission: 12/04/2024 Date of discharge: 12/06/2024 Discharge diagnoses: Principal Problem: Acute on chronic respiratory failure with hypoxia and hypercapnia (CMS-HCC) Active Problems: Bipolar 2 disorder, major depressive episode (CMS-HCC) Stage 3a chronic kidney disease ([facility]) Pulmonary hypertension ([facility]) Consultants: Consulting Providers Not on file Major Procedures and testing: CT thorax; BiPAP support Hospital Course Summary: Patient admitted to the hospital because of acute on chronic respiratory failure with hypoxemia andhypercapnia. She had been admitted 1 day earlier, but signed herself out AMA. Patient was found to have PO2 levels of 50-60 mmHg at home, and in the emergency room her pCO2 level was 100 mmHg. At this point she was obtunded. Apparently, the patient has not had a BiPAP mask, and a nonworking BiPAP machine for the past 4-6 weeks. She was started on BiPAP therapy, and over the course of the next 24 hours her pCO2 level improved to 60 mmHg, which is near her baseline. Her mentation improved and wasback to baseline. She was started on IV steroids, and given Rocephin for possible aspiration given the right-sided infiltrates. She remained afebrile and procalcitonin level was low. She had a PT evaluation which showed she was able to ambulate with assistance. She was eating without difficulty. She was switch to oral medications. She had excellent diuresis without taking torsemide or empagliflozin. She was felt to be stable for discharge with close follow-up arranged as outpatient. She was noted to have persistent microcytic anemia, and will need outpatient evaluation including an EGD. Exam: BP 154/65 Pulse 75 Temp 36.3 ??C (97.4 ??F) (Temporal) Resp 20 Ht 175.3 cm (5' 9 ) Wt 117.4 kg (258 lb 13.1 oz) SpO2 96% BMI 38.22 kg/m?? Intake/Output Summary (Last 24 hours) at 12/06/20242109 Last data filed at 12/06/2024 0900 Gross per 24 hour Intake 3 ml Output -- Net 3 ml General appearance: Alert and oriented to person place and time Head: Normocephalic Throat: Moist and clear Neck: Symmetric Lungs: Wheezing noted bilaterally posterior upper and lower toro Heart: Distant but regular Abdomen: Obese, soft nontender Extremities: No edema Pulses: Diminished x4 Skin: No breakdown or rashes Neurologic: No focal deficits. Labs: Recent Results (from the past 48 hours) Basic Metabolic Panel Collection Time: 12/05/24 4:28 AM Result Value Ref Range SODIUM 137 134 - 146 mmol/L POTASSIUM 4.0 3.5 - 5.0 mmol/L CHLORIDE 96 (L) 98 - 109 mmol/L CARBON DIOXIDE 34 (H) 22 - 32 mmol/L ANION GAP 7 5 - 15 mmol/L BLOOD UREA NITROGEN 19 5 - 27 mg/dL CREATININE 0.91 0.40 - 1.00 mg/dL GLUCOSE 140 (H) 65 - 99 mg/dL CALCIUM 8.8 8.5 - 10.5 mg/dL EGFR Non-Race Dependent 71 >=60 ml/min/1.73sq.m CBC auto differential Collection Time: 12/05/24 4:28 AM Result Value Ref Range WBC 9.1 4 - 11 x10E9/L RBC Count 4.24 3.8 - 5.2 X10E12/L Hemoglobin 8.2 (L) 11.7 - 15.5 g/dL Hematocrit 27.7 (L) 35 - 47 % MCV 65 (L) 80 - 100 fL MCH 19.4 (L) 27 - 34 pg MCHC 29.7 (L) 32 - 36 g/dL RDW 19.6 (H) 11.5 - 15 % Platelet Count 238 150 - 450 X10E9/L MPV 7.3 7 - 12 fL Neutrophils % 92.2 % Lymphocytes % 5.3 % Monocytes % 2.3 % Eosinophils % 0.0 % Basophils % 0.2 % Neutrophils Absolute (A) 8.3 (H) 1.5 - 6.6 10*3/uL Lymphocytes Absolute 0.5 (L) 1.0 - 3.5 10*3/uL Monocytes Absolute 0.2 0.0 - 0.9 10*3/uL Eosinophils Absolute 0.0 0.0 - 0.4 10*3/uL Basophils Absolute 0.0 0.0 - 0.2 10*3/uL Anisocytosis 2+ Microcytes 2+ Stomatocytes 3+ RBC Morphology abnormal Differential Type AUTOMATED DIFFERENTIAL Phosphorus Collection Time: 12/05/24 4:28 AM Result Value Ref Range PHOSPHORUS 2.3 (L) 2.4 - 4.9 mg/dL Extra Tubes Collection Time: 12/05/24 4:28 AM Narrative The following orders were created for panel order Extra Tubes. Procedure Abnormality Status --------- ------ Light Blue Top[[id number]] Final result Please view results for these tests on the individual orders. Light Blue Top Collection Time: 12/05/24 4:28 AM Result Value Ref Range Extra Tube Auto Resulted Blood gas, venous Collection Time: 12/05/24 9:21 AM Result Value Ref Range Sample type VENOUS pH, Venous 7.340 7.320 - 7.420 pCO2, Venous 64.3 (H) 35.0 - 50.0 mmHg pO2, Venous 50 30 - 50 mmHg Base, Excess 7.0 (H) 0.0 - 2.0 mmol/L HCO3, Venous 34.7 (H) 20.0 - 24.0 mmol/L %O2 Saturation, Venous 81.0 % Joe's test N/A SPO2 92 % Sample site N/A Source Of Oxygen NC Bedside Glucose *Place/Obtain serum glucose if >500 per glucometer. Collection Time: 12/05/24 11:23 AM Result Value Ref Range Bedside Glucose (POC) 144 (H) 65 - 99 mg/dL Bedside Glucose *Place/Obtain serum glucose if >500 per glucometer. Collection Time: 12/05/24 6:04 PM Result Value Ref Range Bedside Glucose (POC) 147 (H) 65 - 99 mg/dL Basic Metabolic Panel Collection Time: 12/06/24 5:58 AM Result Value Ref Range SODIUM 143 134 - 146 mmol/L POTASSIUM 4.3 3.5 - 5.0 mmol/L CHLORIDE 103 98 - 109 mmol/L CARBON DIOXIDE 34 (H) 22 - 32 mmol/L ANION GAP 6 5 - 15 mmol/L BLOOD UREA NITROGEN 24 5 - 27 mg/dL CREATININE 0.84 0.40 - 1.00 mg/dL GLUCOSE 126 (H) 65 - 99 mg/dL CALCIUM 9.2 8.5 - 10.5 mg/dL EGFR Non-Race Dependent 79 >=60 ml/min/1.73sq.m Phosphorus Collection Time: 12/06/24 5:58 AM Result Value Ref Range PHOSPHORUS 3.1 2.4 - 4.9 mg/dL Extra Tubes Collection Time: 12/06/24 5:58 AM Narrative The following orders were created for panel order Extra Tubes. Procedure Abnormality Status --------- ------ Light Blue Top[[id number]] Final result Lavender Top[[id number]] Final result Please view results for these tests on the individual orders. Light Blue Top Collection Time: 12/06/24 5:58 AM Result Value Ref Range Extra Tube Auto Resulted Lavender Top Collection Time: 12/06/24 5:58 AM Result Value Ref Range Extra Tube Auto Resulted Extra Tubes Collection Time: 12/06/24 5:58 AM Narrative The following orders were created for panel order Extra Tubes. Procedure Abnormality Status --------- ------ PST TOP[[id number]] Final result Please view results for these tests on the individual orders. PST TOP Collection Time: 12/06/24 5:58 AM Result Value Ref Range Extra Tube Auto Resulted Blood gas, venous Collection Time: 12/06/24 8:48 AM Result Value Ref Range Sample type VENOUS pH, Venous 7.378 7.320 - 7.420 pCO2, Venous 63.6 (H) 35.0 - 50.0 mmHg pO2, Venous 47 30 - 50 mmHg Base, Excess 10.0 (H) 0.0 - 2.0 mmol/L HCO3, Venous 37.4 (H) 20.0 - 24.0 mmol/L %O2 Saturation, Venous 80.0 % Joe's test N/A Sample site N/A Source Of Oxygen NC Discharge Instructions: Disposition: Discharge to home with home health Condition:Stable Activity: activity as tolerated and wear oxygen at all times, and use BiPAP nightly Diet: Adult diet Follow up: Michael Steiner, DO [address] [facility] [address] Discharge Medications: Your medication list START taking these medications Instructions Last Dose Given Next Dose Due guaiFENesin 600 mg tablet extended release 12hr Commonly known as: MUCINEX Take 1 tablet (600 mg total) by mouth every 12 (twelve) hours. predniSONE 20 mg tablet Commonly known as: DELTASONE Take 2 tablets (40 mg total) by mouth in the morning for 5 days. CHANGE how you take these medications Instructions Last Dose Given Next Dose Due hydrOXYzine 25 mg tablet Commonly known as: ATARAX What changed: when to take this reasons to take this Take 1 tablet (25 mg total) by mouth 2 (two) times a day as needed for anxiety. pregabalin 100 mg capsule Commonly known as: LYRICA What changed: when to take this additional instructions Take 1 capsule (100 mg total) by mouth before bedtime. CONTINUE taking these medications Instructions Last Dose Given Next Dose Due acetaminophen 325 mg tablet Commonly known as: TYLENOL Take 2 tablets (650 mg total) by mouth every 4 (four) hours as needed for pain or headaches. albuterol 0.63 mg/3 mL nebulizer solution Commonly known as: ACCUNEB albuterol 90 mcg/actuation inhaler Commonly known as: PROVENTIL HFA;VENTOLIN HFA ARIPiprazole 15 mg tablet Commonly known as: ABILIFY atorvastatin 80 mg tablet Commonly known as: LIPITOR Take 1 tablet (80 mg total) by mouth in the morning. BREZTRI AEROSPHERE 160-9-4.8 mcg/actuation HFA aerosol inhaler Generic drug: [id number] Inhale 2 puffs in the morning and 2 puffs before bedtime. celecoxib 200 mg capsule Commonly known as: CeleBREX Take 1 capsule (200 mg total) by mouth in the morning. cholecalciferol (vitamin D3) 5,000 units tablet clonazePAM 0.5 mg tablet Commonly known as: KlonoPIN cyanocobalamin 1000 MCG tablet doxepin 75 mg capsule Commonly known as: SINEquan empagliflozin 10 mg tablet tablet Commonly known as: JARDIANCE Take 1 tablet (10 mg total) by mouth in the morning. TAKE 1 TABLET (10 MG TOTAL) BY MOUTH IN THE MORNING. ezetimibe 10 mg tablet Commonly known as: ZETIA Take 1 tablet (10 mg total) by mouth in the morning. lamoTRIgine 150 mg tablet Commonly known as: LaMICtal metoprolol succinate XL 25 mg 24 hr tablet Commonly known as: TOPROL XL Take 1 tablet (25 mg total) by mouth nightly. oxygen pantoprazole 40 mg EC tablet Commonly known as: PROTONIX Take 1 tablet (40 mg total) by mouth every morning before breakfast. spironolactone 25 mg tablet Commonly known as: ALDACTONE Take 1 tablet (25 mg total) by mouth in the morning. TRINTELLIX 10 mg tablet Generic drug: vortioxetine STOP taking these medications torsemide 20 mg tablet Commonly known as: DEMADEX Where to Get Your Medications These medications were sent to [facility]/pharmacy [address] [place], [place] [id number] guaiFENesin 600 mg tablet extended release 12hr predniSONE 20 mg tablet Information about where to get these medications is not yet available Ask your nurse or doctor about these medications hydrOXYzine 25 mg tablet pregabalin 100 mg capsule > 30 minutes were spent on discharging this patient. documented in this encounter Discharge Instructions * Attachments The following attachments cannot be sent through Care Everywhere. * Community-acquired pneumonia in adults ([place]) documented in this encounter Medications at Time of Discharge acetaminophen (TYLENOL) 325 mg tablet Take 2 tablets (650 mg total) by mouth every 4 (four) hours as needed for pain or headaches. 30 tablet 04/01/202 4 albuterol (ACCUNEB) 0.63 mg/3 mL nebulizer solution Inhale 3 mL (0.63 mg total) by nebulization every 6 (six) hours as needed for wheezing. albuterol (PROVENTIL HFA;VENTOLIN HFA) 90 mcg/actuation inhaler ARIPiprazole (ABILIFY) 15 mg tablet 4 atorvastatin (LIPITOR) 80 mg tabletIndications:At herosclerosis of [place] coronary artery of [place] heart without angina pectoris,Hx of hyperlipidemia Take 1 tablet (80 mg total) by mouth in the morning. 90 tablet 3 4 budesonide-glycopyr- formoterol (BREZTRI AEROSPHERE) 160-9-4.8 mcg/actuation HFA aerosol inhalerIndications:C hronic obstructive pulmonary disease, unspecified COPD type ([facility]) Inhale 2 puffs in the morning and 2 puffs before bedtime. 10.7 g 10 4 celecoxib (CeleBREX) 200 mg capsuleIndications:A rthritis of left sacroiliac joint Take 1 capsule (200 mg total) by mouth in the morning. 30 capsule 2 5 cholecalciferol, vitamin D3, 5,000 units tablet Take 2 tablets (10,000 Units total) by mouth in the morning. clonazePAM (KlonoPIN) 0.5 mg tablet 4 cyanocobalamin 1000 MCG tablet doxepin (SINEquan) 75 mg capsule empagliflozin (JARDIANCE) 10 mg tablet tabletIndications:Ch ronic heart failure with preserved ejection fraction ([facility]),Atheroscle rosis of [place] coronary artery of [place] heart without angina pectoris Take 1 tablet (10 mg total) by mouth in the morning. TAKE 1 TABLET (10 MG TOTAL) BY MOUTH IN THE MORNING. 90 tablet 1 5 ezetimibe (ZETIA) 10 mg tabletIndications:At herosclerotic heart disease of [place] coronary artery with other forms of angina pectoris Take 1 tablet (10 mg total) by mouth in the morning. 90 tablet 1 5 guaiFENesin (MUCINEX) 600 mg tablet extended release 12hr Take 1 tablet (600 mg total) by mouth every 12 (twelve) hours. 14 tablet 5 hydrOXYzine (ATARAX) 25 mg tablet Take 1 tablet (25 mg total) by mouth 2 (two) times a day as needed for anxiety. 5 lamoTRIgine (LaMICtal) 150 mg tablet Take 1 tablet (150 mg total) by mouth in the morning. 4 metoprolol succinate XL (TOPROL XL) 25 mg 24 hr tabletIndications:Ch ronic heart failure with preserved ejection fraction (CMS-HCC),Pulmonary hypertension (CMS-HCC),Nonrheumat ic tricuspid valve regurgitation,Essent ial hypertension,Atheros clerosis of [place] coronary artery of [place] heart without angina pectoris,History of four vessel coronary artery bypass graft,NSTEMI (non-ST elevated myocardial infarction) ([facility]-H[facility]) Take 1 tablet (25 mg total) by mouth nightly. 30 tablet 11 5 oxygen Inhale 2 L/min continuously. pantoprazole (PROTONIX) 40 mg EC tabletIndications:Ga stro-esophageal reflux disease without esophagitis Take 1 tablet (40 mg total) by mouth every morning before breakfast. 90 tablet 5 pregabalin (LYRICA) 100 mg capsuleIndications:P eripheral polyneuropathy Take 1 capsule (100 mg total) by mouth before bedtime. 5 spironolactone (ALDACTONE) 25 mg tabletIndications:Sh ortness of breath,Chronic heart failure with preserved ejection fraction (CMS-HCC) Take 1 tablet (25 mg total) by mouth in the morning. 90 tablet 4 TRINTELLIX 10 mg tablet Take 1 tablet (10 mg total) by mouth in the morning. 5 predniSONE (DELTASONE) 20 mg tablet Take 2 tablets (40 mg total) by mouth in the morning for 5 days. 10 tablet 5 12/12/19 25 documented as of this encounter Progress Notes * Vicki Henry RCP - 12/05/2024 5:00 PM EDT Pts home CPAP/Bipap unit at bedside. This play writer set machine up. Water reservoir filled with distilled water. Oxygen tubing connected to pt machine and hooked up to O2 flow meter at 2L. Unit currently on standby next to pt's bed. * Michael Steiner, DO - 12/05/2024 11:22 AM EDT 12/05/2024 Monet Recinos : 1960 [id number] Problem List: Principal Problem: Acute on chronic respiratory failure with hypoxia and hypercapnia ([facility]) Active Problems: Bipolar 2 disorder, major depressive episode ([facility]) Stage 3a chronic kidney disease ([facility] Pulmonary hypertension ([facility]) Assessment and Plan: 1. Acute on chronic respiratory failure with hypoxemia and hypercapnia. Venous pCO2 improved today following continuous use of BiPAP at 16/8. PCO2 down to 64 mmHg, which appears to be near her baseline. She still has a loose cough and some wheezing. She is more alert, can answer questions, has beenable to eat and use the bedside commode. Still has O2 desaturation with activity. 2. KUSUM on CKD 3A. Improved with fluid overnight. Will discontinue the IV. Continue renal protectivestrategies. Will reintroduce medications as indicated by lab. 3. Pulmonary hypertension. Has continuous oxygen at home. Continue. 4. Bipolar 2 disorder. She is close to her baseline mentation. Restart clonazepam along with Trintelllix and Lamictal. 5. Microcytic anemia. Hemoglobin slightly lower today but within recent range of values. Planning on outpatient EGD to evaluate source for blood loss once patient is stabilized. 5. Disposition. Full code. I anticipate 1-2 more days in the hospital. Need to verify that she has working BiPAP equipment at home. Subjective: Patient wore her BiPAP all day yesterday and overnight. She feels ???back to normal?? today. She is alert, oriented, talking clearly, eating and able to transfer to commode. Maintains PO2 level adequately at rest, but does desaturate with activity. Still with some loose cough. No vomiting, but does feel a little nauseated after eating. She is requesting to restart some of her psych meds. Objective: BP 111/80 Pulse 83 Temp 36.7 ??C (98 ??F) (Oral) Resp 22 Ht 175.3 cm (5' 9 ) Wt 117.4 kg (258 lb 13.1 oz) SpO2 93% BMI 38.22 kg/m?? Intake/Output Summary (Last 24 hours) at 12/05/2024 1122 Last data filed at 12/05/2024 1030 Gross per 24 hour Intake 60 ml Output 1600 ml Net -1540 ml General appearance: Awake and oriented to person place and time. Wearing O2 via NC Head: Normocephalic Throat: Moist Neck: Symmetric Lungs: Wheezing noted posteriorly upper and lower toro bilaterally Heart: Regular rate and rhythm. Distant Abdomen: Obese, soft nontender Extremities: Trace edema in the lower extremities Pulses: Present x4 Skin: No rash or breakdown Neurologic: No focal deficits Labs: Recent Results (from the past 24 hours) Bedside Glucose *Place/Obtain serum glucose if >500 per glucometer. Collection Time: 12/04/24 11:55 AM Result Value Ref Range Bedside Glucose (POC) 167 (H) 65 - 99 mg/dL Blood gas, venous Collection Time: 12/04/24 1:28 PM Result Value Ref Range Sample type VENOUS pH, Venous 7.263 (L) 7.320 - 7.420 pCO2, Venous 80.0 (H) 35.0 - 50.0 mmHg pO2, Venous 27 (L) 30 - 50 mmHg Base, Excess 7.0 (H) 0.0 - 2.0 mmol/L HCO3, Venous 36.1 (H) 20.0 - 24.0 mmol/L %O2 Saturation, Venous 38.0 % Joe's test N/A SPO2 94 % Sample site N/A Insp. O2 conc. 50 % Source Of Oxygen NC Bedside Glucose *Place/Obtain serum glucose if >500 per glucometer. Collection Time: 12/04/24 4:33 PM Result Value Ref Range Bedside Glucose (POC) 196 (H) 65 - 99 mg/dL Bedside Glucose *Place/Obtain serum glucose if >500 per glucometer. Collection Time: 12/04/24 5:19 PM Result Value Ref Range Bedside Glucose (POC) 165 (H) 65 - 99 mg/dL Bedside Glucose *Place/Obtain serum glucose if >500 per glucometer. Collection Time: 12/04/24 8:45 PM Result Value Ref Range Bedside Glucose (POC) 125 (H) 65 - 99 mg/dL Basic Metabolic Panel Collection Time: 12/05/24 4:28 AM Result Value Ref Range SODIUM 137 134 - 146 mmol/L POTASSIUM 4.0 3.5 - 5.0 mmol/L CHLORIDE 96 (L) 98 - 109 mmol/L CARBON DIOXIDE 34 (H) 22 - 32 mmol/L ANION GAP 7 5 - 15 mmol/L BLOOD UREA NITROGEN 19 5 - 27 mg/dL CREATININE 0.91 0.40 - 1.00 mg/dL GLUCOSE 140 (H) 65 - 99 mg/dL CALCIUM 8.8 8.5 - 10.5 mg/dL EGFR Non-Race Dependent 71 >=60 ml/min/1.73sq.m CBC auto differential Collection Time: 12/05/24 4:28 AM Result Value Ref Range WBC 9.1 4 - 11 x10E9/L RBC Count 4.24 3.8 - 5.2 X10E12/L Hemoglobin 8.2 (L) 11.7 - 15.5 g/dL Hematocrit 27.7 (L) 35 - 47 % MCV 65 (L) 80 - 100 fL MCH 19.4 (L) 27 - 34 pg MCHC 29.7 (L) 32 - 36 g/dL RDW 19.6 (H) 11.5 - 15 % Platelet Count 238 150 - 450 X10E9/L MPV 7.3 7 - 12 fL Neutrophils % 92.2 % Lymphocytes % 5.3 % Monocytes % 2.3 % Eosinophils % 0.0 % Basophils % 0.2 % Neutrophils Absolute (A) 8.3 (H) 1.5 - 6.6 10*3/uL Lymphocytes Absolute 0.5 (L) 1.0 - 3.5 10*3/uL Monocytes Absolute 0.2 0.0 - 0.9 10*3/uL Eosinophils Absolute 0.0 0.0 - 0.4 10*3/uL Basophils Absolute 0.0 0.0 - 0.2 10*3/uL Anisocytosis 2+ Microcytes 2+ Stomatocytes 3+ RBC Morphology abnormal Differential Type AUTOMATED DIFFERENTIAL Phosphorus Collection Time: 12/05/24 4:28 AM Result Value Ref Range PHOSPHORUS 2.3 (L) 2.4 - 4.9 mg/dL Extra Tubes Collection Time: 12/05/24 4:28 AM Narrative The following orders were created for panel order Extra Tubes. Procedure Abnormality Status --------- ------ Light Blue Top[[id number]] Final result Please view results for these tests on the individual orders. Light Blue Top Collection Time: 12/05/24 4:28 AM Result Value Ref Range Extra Tube Auto Resulted Blood gas, venous Collection Time: 12/05/24 9:21 AM Result Value Ref Range Sample type VENOUS pH, Venous 7.340 7.320 - 7.420 pCO2, Venous 64.3 (H) 35.0 - 50.0 mmHg pO2, Venous 50 30 - 50 mmHg Base, Excess 7.0 (H) 0.0 - 2.0 mmol/L HCO3, Venous 34.7 (H) 20.0 - 24.0 mmol/L %O2 Saturation, Venous 81.0 % Joe's test N/A SPO2 92 % Sample site N/A Source Of Oxygen NC documented in this encounter H&P Notes * Michael Steiner DO - 12/04/2024 11:51 AM EDT Images from the original note were not included. GENERAL HISTORY AND PHYSICAL: 12/04/24 PROBLEM: Principal Problem: Acute on chronic respiratory failure with hypoxia and hypercapnia ([facility]) HISTORY OF PRESENT ILLNESS: Monet Recinos is an 64 y.o. White or female. She presents to the emergency department 1 day after signing herself out of the hospital AMA for acute exacerbation of COPD. Her roommate/POA reports that her respiratory symptoms continue to worsen at home after she left the hospital, tot point where she was obtunded, and could not eat or drink and pulse ox was reading 50- 60% on 2 L/minute nasal cannula, so the squad was called again. Upon returned to the emergency department, shewas placed on BiPAP, and a venous blood gas showed a pH of 7.18, with a pCO2 of 100 mmHg. BNP was elevated at 250 9 pg/mL a venous blood gas from 1 day earlier showed a pH of 7.3, with a pCO2 of 67 mmHg. -the patient's POA reports that the patient has had increased problems with her breathing over the past month, but they have been significantly worse in the last 5 days. -the patient has a home BiPAP device, but the mask broke approximately 4 weeks ago, and she has been without the mask and no ability to use her BiPAP since that time. When she signed herself out of the hospital AMA, she took the BiPAP mask from the hospital, and tried using it on her CPAP machine, and apparently the machine was not working either. -the patient's POA reports that her father several weeks ago, and she started smoking cigarettes again. -the patient has been wearing her oxygen routinely at home, although does take it off when she is smoking. -the patient has been having increased swelling for the past 4-6 weeks, and required reinstitution of loop diuretic because of increased edema. The edema has improved and has not been an issue for the past week. -she has been having more cough for the past week, and reports thick, green tinged sputum with occasional blood flecks. -originally, the patient had stated she never wanted to be intubated again. After her recent visit to the ED, the patient has changed her mind and would agree to intubation if necessary. PAST MEDICAL HISTORY: Past Medical History: Diagnosis Date Agoraphobia Angina at rest Anxiety BiPAP (biphasic positive airway pressure) dependence Bipolar disorder [place] Breast injury CHF (congestive heart failure) ([facility]) Chipped tooth Chronic kidney disease COPD (chronic obstructive pulmonary disease) ([facility]) Coronary artery disease Dementia ([facility]) Depression Diarrhea frequent bouts /involuntary Dizziness Fracture, vertebral, lumbar closed ([facility]) GERD (gastroesophageal reflux disease) Headache History of coronary artery bypass graft 08/14/2020 Liver disease Low back pain Lump or mass in breast Memory loss Myocardial infarction ([facility]) Apr 2009, swith stent placement Obesity BONY treated with BiPAP 07/31/2022 Osteoarthritis Panic disorder Psoriasis PTSD (post-traumatic stress disorder) Pulmonary emboli ([facility]) Rib fracture 09/2023 lt Rotator cuff tear L Shortness of breath Sleep apnea Visual impairment glasses PAST SURGICAL HISTORY: Past Surgical History: Procedure Laterality Date BREAST BIOPSY BREAST CYST EXCISION Cardiac catheterization N/A 01/09/2020 Performed by Yefri Khan MD at [facility] Cardiac catheterization-LV Cors N/A 08/06/2020 Performed by Hazel Painting MD at [facility] SECTION CHOLECYSTECTOMY COLONOSCOPY N/A 04/03/2017 Performed by Jose Beaver MD at [facility] Coronary angiogram and left ventricular gram/pressure N/A 01/09/2020 Performed by Yefri Khan MD at [facility] CORONARY ANGIOPLASTY WITH STENT PLACEMENT CORONARY ARTERY BYPASS GRAFT X4/ THOMPSON/ SVG X3 / RIGHT UPPER LEG OPEN VEIN HARVEST/ LEFT UPPER LEG OPEN VEING HARVEST /GINETTE N/A 08/13/2020 Performed by Leroy Meng MD at [facility] Drug eluting stent left anterior descending N/A 01/09/2020 Performed by Yefri Khan MD at [facility] EXCISION SEROMA LOWER EXTREMITY Left 10/07/2022 Performed by Victor Hugo Vincent DO at [facility] Intravascular ultrasound coronary N/A 08/06/2020 Performed by Hazel Painting MD at [facility] Intravascular ultrasound coronary N/A 01/09/2020 Performed by Yefri Khan MD at [facility] NOTCHARGED/Thrombolysis arterial initial treatment N/A 01/09/2020 Performed by Yefri Khan MD at [facility] TONSILLECTOMY Travel History Travel Screening Question Response Have you been in contact with someone who was sick? No / Unsure Do you have any of the following new or worsening symptoms? Shortness of breath Have you traveled internationally or domestically in the last month? No Travel History Travel since 11/03/24 No documented travel since 11/03/24 SOCIAL HISTORY: Social History Socioeconomic History Marital status: Single Spouse name: Not on file Number of children: Not on file Years of education: Not on file Highest education level: Not on file Occupational History Not on file Tobacco Use Smoking status: Former Current packs/day: 0.00 Average packs/day: 1 pack/day for 40.0 years (40.0 ttl pk-yrs) Types: Cigarettes Start date: 09/1981 Quit date: 09/2021 Years since quittin.1 Smokeless tobacco: Never Tobacco comments: 5-6 cigerettes a day Vaping Use Vaping status: Some Days Substances: Nicotine, Flavoring Devices: Disposable Substance and Sexual Activity Alcohol use: Not Currently Comment: last use 15 years ago Drug use: Not Currently Types: Cocaine, Marijuana Sexual activity: Not Currently Other Topics Concern Caffeine Use Yes Comment: daily Social History Narrative Not on file Social Drivers of Health Financial Resource Strain: Low Risk (12/04/2024) Overall Financial Resource Strain (CARDIA) Difficulty of Paying Living Expenses: Not very hard Food Insecurity: No Food Insecurity (12/04/2024) Hunger Screening Food Insecurity - Worry: Never True Food Insecurity - Inability: Never True Transportation Needs: No Transportation Needs (12/04/2024) PRAPARE - Transportation Lack of Transportation (Medical): No Lack of Transportation (Non-Medical): No Physical Activity: Inactive (07/25/2023) Exercise Vital Sign Days of Exercise per Week: 0 days Minutes of Exercise per Session: 0 min Stress: No Stress Concern Present (07/25/2023) [employer] - Occupational Stress Questionnaire Feeling of Stress : Only a little Recent Concern: Stress - Stress Concern Present (07/25/2023) [employer] - Occupational Stress Questionnaire Feeling of Stress : Very much Social Connections: Moderately Isolated (07/25/2023) Social Connection and Isolation Panel [NHANES] Frequency of Communication with Friends and Family: Three times a week Frequency of Social Gatherings with Friends and Family: Three times a week Attends [employer] Services: More than 4 times per year Active Member of Clubs or Organizations: No Attends Club or Organization Meetings: Never Marital Status: Interpersonal Safety: Not At Risk (12/04/2024) Humiliation, Afraid, Rape, and Kick questionnaire Fear of Current or Ex-Partner: No Emotionally Abused: No Physically Abused: No Sexually Abused: No Housing Instability: Low Risk (12/04/2024) Housing Instability Housing Instability: No ALLERGIES: Allergies Allergen Reactions Penicillins Anaphylaxis Other Reaction(s): Swelling of Lip/Tongue/Throat Morphine Other (See Comments) I hallucinate This is not a true allergy HOME MEDICATIONS: Medications Prior to Admission Medication Sig Dispense Refill Last Dose/Taking acetaminophen (TYLENOL) 325 mg tablet Take 2 tablets (650 mg total) by mouth every 4 (four) hours as needed for pain or headaches. 30 tablet 0 Past Week atorvastatin (LIPITOR) 80 mg tablet Take 1 tablet (80 mg total) by mouth in the morning. 90 tablet 3 12/02/2024 Morning tbvqvdokas-jxshocfs-wjvhbtnuiz (BREZTRI AEROSPHERE) 160-9-4.8 mcg/actuation HFA aerosol inhaler Inhale 2 puffs in the morning and 2 puffs before bedtime. 10.7 g 10 12/02/2024 Bedtime empagliflozin (JARDIANCE) 10 mg tablet tablet Take 1 tablet (10 mg total) by mouth in the morning. TAKE 1 TABLET (10 MG TOTAL) BY MOUTH IN THE MORNING. 90 tablet 1 12/02/2024 Morning ezetimibe (ZETIA) 10 mg tablet Take 1 tablet (10 mg total) by mouth in the morning. 90 tablet 1 12/02/2024 Morning spironolactone (ALDACTONE) 25 mg tablet Take 1 tablet (25 mg total) by mouth in the morning. 90 tablet 0 12/02/2024 Morning albuterol (ACCUNEB) 0.63 mg/3 mL nebulizer solution Inhale 3 mL (0.63 mg total) by nebulization every 6 (six) hours as needed for wheezing. 12/02/2024 Evening albuterol (PROVENTIL HFA;VENTOLIN HFA) 90 mcg/actuation inhaler 12/02/2024 Evening ARIPiprazole (ABILIFY) 15 mg tablet 12/02/2024 Evening celecoxib (CeleBREX) 200 mg capsule Take 1 capsule (200 mg total) by mouth in the morning. 30 capsule 2 12/02/2024 Morning cholecalciferol, vitamin D3, 5,000 units tablet Take 2 tablets (10,000 Units total) by mouth in themorning. 12/02/2024 Evening clonazePAM (KlonoPIN) 0.5 mg tablet 12/02/2024 Noon cyanocobalamin 1000 MCG tablet 12/02/2024 Morning doxepin (SINEquan) 75 mg capsule 12/02/2024 Evening hydrOXYzine (ATARAX) 25 mg tablet Take 1 tablet (25 mg total) by mouth. 12/02/2024 Evening lamoTRIgine (LaMICtal) 150 mg tablet Take 1 tablet (150 mg total) by mouth in the morning. 12/02/2024Morning metoprolol succinate XL (TOPROL XL) 25 mg 24 hr tablet Take 1 tablet (25 mg total) by mouth nightly. 30 tablet 11 12/02/2024 Evening oxygen Inhale 2 L/min continuously. pantoprazole (PROTONIX) 40 mg EC tablet Take 1 tablet (40 mg total) by mouth every morning before breakfast. 90 tablet 0 12/02/2024 Morning pregabalin (LYRICA) 100 mg capsule TAKE 1 CAPSULE BY MOUTH IN THE MORNING AND BEFORE BEDTIME 60 capsule 0 12/02/2024 Evening torsemide (DEMADEX) 20 mg tablet Take 3 tablets (60 mg total) by mouth daily. Take 3 tablets daily.May take take an additional tablet as needed for swelling 300 tablet 3 12/02/2024 Morning TRINTELLIX 10 mg tablet Take 1 tablet (10 mg total) by mouth in the morning. 12/02/2024 Morning IMMUNIZATIONS: There is no immunization history on file for this patient. REVIEW OF SYSTEMS: Review of Systems Constitutional: Positive for activity change and fatigue. Negative for chills, diaphoresis and appetite change. HENT: Positive for congestion. Eyes: Negative for visual disturbance. Respiratory: Positive for apnea, cough and shortness of breath. Cardiovascular: Positive for leg swelling. Gastrointestinal: Reflux Endocrine: Negative. Genitourinary: Positive for frequency. Musculoskeletal: Positive for myalgias, back pain and arthralgias. Skin: Negative. Neurological: Positive for weakness and numbness. Hematological: Currently under evaluation for microcytic anemia Psychiatric/Behavioral: Positive for decreased concentration and dysphoric mood. The patient is nervous/anxious. Has known bipolar disorder under active treatment No LMP recorded. Patient is postmenopausal. BP 142/59 Pulse 91 Temp 36.6 ??C (97.9 ??F) (Temporal) Resp 16 Ht 175.3 cm (5' 9 ) Wt 117.4 kg (258 lb 13.1 oz) SpO2 95% BMI 38.22 kg/m?? O2 Device: Non-invasive mask (BiPap/CPAP) PHYSICAL EXAM: Physical Exam Constitutional She appears well-nourished. No distress. Currently on BiPAP. Does arouse to loud voice or sternal rub. Vitals reviewed. HENT Head Normocephalic and atraumatic. Ears Right Ear: External ear normal. Left Ear: External ear normal. Mouth/Throat Throat: Oropharynx: oropharynx clear and moist Oropharynx negative for exudate. Dentures Eyes: EOM are normal. Conjunctiva: Negative for scleral icterus. Neck No tracheal deviation present. Cardiovascular: Normal rate and regular rhythm. No murmur heard. Heart tones are distant. no gallop Pulmonary/Chest: She has wheezes (Noted anterior and posterior bilaterally upper and lower toro).She has no rales. Abdominal: She exhibits no distension. Soft. There is abdominal tenderness (Epigastric). There is no rebound and no guarding. Musculoskeletal: General: No edema. Lymph cervical adenopathy not present Neurological She is alert. She exhibits abnormal muscle tone. Coordination abnormal. Oriented to person and place Skin: Skin is warm and dry. No rash noted. She is not diaphoretic. No erythema. Psychiatric: She has a normal mood and affect. Her behavior is normal. ASSESSMENT: 1. Acute on chronic respiratory failure with hypoxemia and hypercapnia. Resume BiPAP therapy, with oxygen support as needed. Will monitor serial ABG for pCO2 level. If it does not improve or worsens with the BiPAP, she will require intubation and mechanical ventilation. Otherwise, IV steroids, IV antibiotics (Levaquin given in ED), routine nebulizer treatments, sputum culture, and respiratory supportive care. -the patient has been having some problems with reflux, in addition to a hiatal hernia. Upon viewing her CT scan with the right-sided infiltrates, I have concern for possible aspiration. Obtain sputum culture, and will monitor WBC, procalcitonin, and start Rocephin 1 g daily. -we will need to make sure she has a working BiPAP machine/equipment at the time of discharge. I suspect her lack of baseline treatment for the past month plays a large role in her current admission. 2. Pulmonary hypertension. Continue supportive care with oxygen, diuretics as needed 3. KUSUM superimposed on CKD 3A. Secondary to dehydration/diuretics and lack of oral intake. Renal protective strategies in place. Light IV hydration. Monitor serially. 4. Bipolar disorder. Continue home meds as appropriate, avoiding sedating medications. 5. Disposition. Full code. Expect several days in the hospital. It is unclear whether she will needSNF versus home health at the time of discharge. She does have passport at home normally. PLAN: As above documented in this encounter Nursing Notes * Jennifer Benson RN - 12/06/2024 11:30 AM EDT Discharging to home documented in this encounter ED Notes * Patrick Bal DO - 12/04/2024 8:15 AM EDTAssociated Order(s): Critical Care Images from the original note were not included. [facility] - EMERGENCY Pt Name: Monet Recinos Birthdate: 1960 Chief Complaint: Chief Complaint Patient presents with Shortness of Breath Pt left [facility] hospital AMA this morning. Comes back via EMS. Lethargic and low SPO2. History of Present Illness: Patient is a 64-year-old female who presents with EMS for lethargy shortness of breath and low SpO2. Patient left AMA yesterday morning after being admitted for pneumonia and hypoxia. Per EMS when they arrived patient was not on nasal cannula satting in the low 80s in his lethargic. Patient received a breathing treatment from EMS EN route as well as oxygen via non-rebreather. Past Medical History: Past Medical History: Diagnosis Date Agoraphobia Angina at rest Anxiety BiPAP (biphasic positive airway pressure) dependence Bipolar disorder [place] Breast injury CHF (congestive heart failure) ([facility]) Chipped tooth Chronic kidney disease COPD (chronic obstructive pulmonary disease) ([facility]) Coronary artery disease Dementia ([facility]) Depression Diarrhea frequent bouts /involuntary Dizziness Fracture, vertebral, lumbar closed ([facility]) GERD (gastroesophageal reflux disease) Headache History of coronary artery bypass graft 08/14/2020 Liver disease Low back pain Lump or mass in breast Memory loss Myocardial infarction ([facility]) Apr 2009, swith stent placement Obesity BONY treated with BiPAP 07/31/2022 Osteoarthritis Panic disorder Psoriasis PTSD (post-traumatic stress disorder) Pulmonary emboli ([facility]) Rib fracture 09/2023 lt Rotator cuff tear L Shortness of breath Sleep apnea Visual impairment glasses Past Surgical History: Past Surgical History: Procedure Laterality Date BREAST BIOPSY BREAST CYST EXCISION Cardiac catheterization N/A 01/09/2020 Performed by Yefri Khan MD at [facility] Cardiac catheterization-LV Cors N/A 08/06/2020 Performed by Hazel Painting MD at [facility] SECTION CHOLECYSTECTOMY COLONOSCOPY N/A 04/03/2017 Performed by Jose Beaver MD at [facility] Coronary angiogram and left ventricular gram/pressure N/A 01/09/2020 Performed by Yefri Khan MD at [facility] CORONARY ANGIOPLASTY WITH STENT PLACEMENT CORONARY ARTERY BYPASS GRAFT X4/ THOMPSON/ SVG X3 / RIGHT UPPER LEG OPEN VEIN HARVEST/ LEFT UPPER LEG OPEN VEING HARVEST /GINETTE N/A 08/13/2020 Performed by Leroy Meng MD at [facility] Drug eluting stent left anterior descending N/A 01/09/2020 Performed by Yefri Khan MD at [facility] EXCISION SEROMA LOWER EXTREMITY Left 10/07/2022 Performed by Victor Hugo Vincent DO at [facility] Intravascular ultrasound coronary N/A 08/06/2020 Performed by Hazel Painting MD at [facility] Intravascular ultrasound coronary N/A 01/09/2020 Performed by Yefri Khan MD at [facility] NOTCHARGED/Thrombolysis arterial initial treatment N/A 01/09/2020 Performed by Yefri Khan MD at [facility] TONSILLECTOMY Family History: Family History Problem Relation Age of Onset Hypertension Mother Depression Mother Heart failure Mother Alcohol abuse Father Dementia Father Cancer Maternal Grandmother Cervical cancer Maternal Grandmother Breast cancer Neg Hx Social History: Social History Socioeconomic History Marital status: Single Tobacco Use Smoking status: Former Current packs/day: 0.00 Average packs/day: 1 pack/day for 40.0 years (40.0 ttl pk-yrs) Types: Cigarettes Start date: 09/1981 Quit date: 09/2021 Years since quittin.1 Smokeless tobacco: Never Tobacco comments: 5-6 cigerettes a day Vaping Use Vaping status: Some Days Substances: Nicotine, Flavoring Devices: Disposable Substance and Sexual Activity Alcohol use: Not Currently Comment: last use 15 years ago Drug use: Not Currently Types: Cocaine, Marijuana Sexual activity: Not Currently Other Topics Concern Caffeine Use Yes Comment: daily Social Drivers of Health Financial Resource Strain: Low Risk (12/04/2024) Overall Financial Resource Strain (CARDIA) Difficulty of Paying Living Expenses: Not very hard Food Insecurity: No Food Insecurity (12/04/2024) Hunger Screening Food Insecurity - Worry: Never True Food Insecurity - Inability: Never True Transportation Needs: No Transportation Needs (12/04/2024) PRAPARE - Transportation Lack of Transportation (Medical): No Lack of Transportation (Non-Medical): No Physical Activity: Inactive (07/25/2023) Exercise Vital Sign Days of Exercise per Week: 0 days Minutes of Exercise per Session: 0 min Stress: No Stress Concern Present (07/25/2023) [employer] - Occupational Stress Questionnaire Feeling of Stress : Only a little Recent Concern: Stress - Stress Concern Present (07/25/2023) [employer] - Occupational Stress Questionnaire Feeling of Stress : Very much Social Connections: Moderately Isolated (07/25/2023) Social Connection and Isolation Panel [NHANES] Frequency of Communication with Friends and Family: Three times a week Frequency of Social Gatherings with Friends and Family: Three times a week Attends [employer] Services: More than 4 times per year Active Member of Clubs or Organizations: No Attends Club or Organization Meetings: Never Marital Status: Interpersonal Safety: Not At Risk (12/04/2024) Humiliation, Afraid, Rape, and Kick questionnaire Fear of Current or Ex-Partner: No Emotionally Abused: No Physically Abused: No Sexually Abused: No Housing Instability: Low Risk (12/04/2024) Housing Instability Housing Instability: No Review of Systems: Review of Systems Physical Exam: ED Triage Vitals [12/04/24 0648] Temp Heart Rate Resp BP SpO2 37.2 ??C (99 ??F) 98 24 (!) 157/139 100 % Temp Source Heart Rate Source Patient Position BP Location FiO2 (%) Oral Monitor -- Left arm -- Vitals: 12/04/24 2335 12/05/24 0000 12/05/24 0247 12/05/24 0257 BP: 155/70 Temp: TempSrc: Pulse: 69 62 59 Resp: 25 22 21 SpO2: 96% 95% MAP (mmHg): 89 Height: Weight: 94 Physical Exam Vitals reviewed. Constitutional: Comments: Lethargic answers yes no questions HENT: Head: Normocephalic and atraumatic. Eyes: Conjunctiva/sclera: Conjunctivae normal. Pulmonary: Effort: Tachypnea present. Breath sounds: Examination of the right-middle field reveals decreased breath sounds. Examination of the left-middle field reveals decreased breath sounds. Examination of the right-lower field reveals decreased breath sounds. Examination of the left-lower field reveals decreased breath sounds. Decreased breath sounds present. Abdominal: General: There is no distension. Palpations: Abdomen is soft. Musculoskeletal: General: Normal range of motion. Cervical back: Normal range of motion and neck supple. Right lower leg: Edema present. Left lower leg: Edema present. Skin: General: Skin is warm and dry. Neurological: GCS: GCS eye subscore is 4. GCS verbal subscore is 5. GCS motor subscore is 6. Comments: Lethargic answers yes no questions Procedure: Critical Care Performed by: Patrick Bal DO Authorized by: Patrick Bal DO Critical care provider statement: Critical care time (minutes): 35 Critical care time was exclusive of: Separately billable procedures and treating other patients Critical care was necessary to treat or prevent imminent or life-threatening deterioration of the following conditions: Respiratory failure Critical care was time spent personally by me on the following activities: Blood draw for specimens, development of treatment plan with patient or surrogate, discussions with primary provider, evaluation of patient's response to treatment, examination of patient, ventilator management, review of old charts, re-evaluation of patient's condition, pulse oximetry, ordering and review of radiographic studies, ordering and review of laboratory studies, ordering and performing treatments and interventions and obtaining history from patient or surrogate Re-evaluation: Re-Evaluation Medical Decision Making Amount and/or Complexity of Data Reviewed Independent Historian: EMS External Data Reviewed: radiology and notes. Details: Admission 12/03/2024, patient left AMA Labs: ordered. Radiology: ordered and independent interpretation performed. Decision-making details documented in ED Course. Details: Right-sided consolidation, atelectasis versus pneumonia awaiting final radiology read similar in appearance to x-ray 12/03/2024 ECG/medicine tests: ordered and independent interpretation performed. Details: Normal sinus rhythm rate 98 Discussion of management or test interpretation with external provider(s): Spoke with patient's PCPDr. Steiner who agreed to accept the admission Risk Prescription drug management. Decision regarding hospitalization. ED Course: ED Course as of 12/05/24316 [place] Dec 04, 2024 0729 X-ray chest 1 view [BL] 0732 Patient re-evaluated slightly more alert notes she is feeling better with the BiPAP. Had discussion with the patient that she is retaining CO2 because she left AMA 24 hours ago.. Would chest x-ray shows no interval change will give Levaquin and admit patient. Patient is agreeable to admission.[BL] ED Course User Index [BL] Patrick Bal DO Clinical Impressions as of 12/05/24316 Acute on chronic respiratory failure with hypoxia and hypercapnia (CMS-HCC) Pneumonia due to infectious organism, unspecified laterality, unspecified part of lung . ED Disposition ED Disposition Admit Date/Time [place] Dec 04, 2024 8:18 AM Comment At this time, the patient has objective evidence of an acute process that will likely require hospitalization for greater than 2 midnights. The patient will be admitted. Medications Prescribed this Visit This print group is not available in inpatient encounters. Please contact a business systems consultant. . Please note that portions of this note were completed with a voice recognition program. Efforts were made to edit the dictations but occasionally words are mis-transcribed. Patrick Bal DO 12/04/24818 Patrick Bal DO 12/05/24316 documented in this encounter Miscellaneous Notes * Query Response - Michael Steiner DO - 12/08/2024 9:28 AM EDT Query Response Note CDI QUERY TEXT: KUSUM Renal Condition [id number] Disclaimer: By submitting this query, we are merely seeking further clarification of documentation to accurately reflect all conditions that you are monitoring, evaluating, treating or that extend the hospitalization or utilize additional resources of care. Please utilize your independent clinical judgment when addressing the question(s) below. Dear Dr. Steiner, This abbreviation can stand for more than one renal condition. Please specify which condition you are treating to accurately reflect the patient?s treatment needsand severity of illness. - Acute Kidney Insufficiency - Acute Kidney Injury - Other (Please provide documentation identifying the condition) Thank you, RAYMON Ruiz, [facility] Inpatient Valve Seater Operator [email or web address] The patient's Clinical Indicators include: Patient was admitted for acute/chronic respiratory failure. She was noted to have KUSUM superimposed on CKD 3A secondary to dehydration and diuretics. CDI RESPONSE TEXT: KUSUM = Acute Kidney Injury, in this case, superimposed on CKD 3A Query created by: Connie Contreras on 12/07/2024 12:11 PM Electronically signed by: Michael Steiner DO 12/08/2024 9:26 AM * Plan of Care - Jennifer Benson RN - 12/06/2024 11:27 AM EDT Problem: Pain Goal: Patient goal is pain score less than 4, able to rest, and participant in treatment plan as appropriate Description: INTERVENTIONS: 1. Encourage patient or legal labor relations representative to report early pain and ask for pain medicine when needed 2. Assess pain using appropriate pain scale and include the scale used when documenting 3. Administer analgesics based on type and severity of pain and evaluate response within appropriate time frame 4. Implement non-pharmacological measures as appropriate and evaluate response 5. Consider cultural and social influences on pain and pain management 6. Notify LIP if interventions ineffective or patient reports new pain 7. Monitor vital signs including pulse ox, end-tidal CO2 based on pain intervention 8. Reassess pain per policy 9. Teach patient or legal labor relations representative interventions for comforting 12/06/2024 1127 by VICTOR M Rodriguez Outcome: Adequate for Discharge 12/06/2024 1059 by VICTOR M Rodriguez Outcome: Progressing Note: Evaluation of progress towards goal: Ongoing Problem: Safety Goal: Patient will be injury free during hospitalization Description: INTERVENTIONS: 1. Assess patient's risk for falls and implement fall prevention plan of care per policy 2. Provide and maintain a safe environment 3. Proper use of double Identifiers 4. Medication administration using the 5 rights 5. Hand hygiene 6. Specimens are labeled at the bedside 7. Instruct patient/ patient labor relations representative about use of safety devices 8. Include patient/ patient labor relations representative in decisions related to safety 12/06/2024 1127 by VICTOR M Rodriguez Outcome: Adequate for Discharge 12/06/2024 1059 by VICTOR M Rodriguez Outcome: Progressing Note: Evaluation of progress towards goal: Ongoing Problem: Infection Goal: Absence of infection during hospitalization Description: INTERVENTIONS 1. Assess and monitor for signs and symptoms of infection. 2. Monitor lab/diagnostic results. 3. Monitor all insertion sites i.e., indwelling lines, tubes and drains. 4. Monitor endotracheal (as able) and nasal secretions for changes in amount and color. 5. Administer medications as ordered. 6. Instruct and encourage patient and family to use good hand hygiene technique. 7. Identify and instruct patient/patient labor relations representative in use of appropriate isolation precautionsfor identified infection/symptoms. 8. Provide and discuss with patient/patient labor relations representative on educational MDRO sheet. 9. Encourage and monitor nutritional status daily and consult life guard if indicated. 10. Implement neutropenic guidelines as needed. 12/06/2024 112 by VICTOR M Rodriguez Outcome: Adequate for Discharge 12/06/2024 105 by VICTOR M Rodriguez Outcome: Progressing Note: Evaluation of progress towards goal: Ongoing Problem: Knowledge Deficit Goal: Patient/patient labor relations representative demonstrates understanding of disease process, treatment plan,medications, and discharge instructions Description: INTERVENTIONS 1. Complete learning assessment and assess knowledge base 2. Provide teaching at level of understanding 3. Provide teaching via preferred learning method(s) 12/06/2024 112 by VICTOR M Rodriguez Outcome: Adequate for Discharge 12/06/2024 105 by VICTOR M Rodriguez Outcome: Progressing Note: Evaluation of progress towards goal: Ongoing Problem: Discharge Planning Goal: Discharge to post-acute care, other facility, or home with appropriate resources Description: Patient's goal is: INTERVENTIONS 1. Conduct assessment to determine patient/family and health care team treatment goals, and need for post-acute services based on payer coverage, community resources, and patient preferences, and barriers to discharge 2. Coordinate with Social work, Care Navigation, and Utilization Review to arrange appropriate level of services according to patient's needs based on patient preference and payer coverage in collaboration with the physician and health care team 3. Address psychosocial, clinical, and financial barriers to discharge as identified in assessment in conjunction with the patient/family and health care team 4. Consult appropriate ancillary services (i.e.. PT/OT/ST, etc) as needed 5. Communicate with and update the patient/family, physician, and health care team regarding progress on the discharge plan 6. Identify discharge learning needs (meds, wound care, etc). 7. Arrange for needed discharge transportation as appropriate 12/06/2024 112 by VICTOR M Rodriguez Outcome: Adequate for Discharge 12/06/2024 105 by VICTOR M Rodriguez Outcome: Progressing Note: Evaluation of progress towards goal: Ongoing Problem: Moderate - High Risk Fall Score Description: Shearer Fall Score of =/> 25 or indicated by [facility] Assessment Goal: Patient should be free from fall Description: Interventions: 1. [place] to environment 2. Hourly rounds addressing the 4 P's (Pain, Positioning, Possessions, Potty) 3. Clear area of hazards (spills, clutter, electrical cords, unnecessary equipment) 4. Place equipment (bed & TV controls, call light, phone, urinal) within reach 5. Encourage patient to wear glasses and hearing aides as appropriate 6. Maintain bed in lowest position 7. Lock wheels on bed/wheelchair 8. Provide adequate lighting, including night light 9. Assess need for additional bedding, food/fluids, pain med's prior to sleep/routinely 10. Provide gripper slippers or personal non-skid footwear 11. Teach patient and patient labor relations representative to maintain environment for safety and engage in all aspects of fall prevention program 12. Remind patient to call for help before getting out of bed 13. Initiate bed/chair/exit alarms supportive devices as appropriate, (chair wedge, no-skid floor mat, raised edge mattress, hip protectors) 14. Locate patient bed assignment for optimal visualization 15. Evaluate and identify Safe Patient Handling Equipment needs 16. Provide supervision when out of bed or chair 17. Utilize gait belt as needed to assist with ambulation 18. Place adaptive equipment (cane, walker) within reach 19. Request patient labor relations representative bring adaptive equipment/mobility aids from home or obtain and provide as needed 20. Consult pharmacy regarding effects of med's affecting mobility, cognition, and alternatives 21. Obtain physician order for PT if risk factors associated with mobility are present 22. Obtain physician order for OT as appropriate 23. Utilize diversional activities 24. Educate patient and patient labor relations representative how to maintain a safe environment during visitationtimes (notify nurse prior to leaving bedside) 25. Consider appropriateness of medical or non-medical typist 26. Set up voiding schedule as appropriate (every 2 hours) 12/06/2024 1127 by VICTOR M Rodriguez Outcome: Adequate for Discharge 12/06/2024 1059 by VICTOR M Rodriguez Outcome: Progressing Note: Evaluation of progress towards goal: Ongoing Problem: Potential for Compromised Skin Integrity Goal: Skin integrity is maintained or improved Description: Patient's goal is: INTERVENTIONS 1. Perform initial skin assessment on admission and as needed 2. Turn patient every 2 hours and PRN 3. Relieve pressure to bony prominences 4. Avoid shearing 5. Keep skin clean and dry 6. Alternate a full bath with partial baths for elderly 7. Apply lotion/moisturizer on skin 8. Monitor patient's hygiene practices 9. Float heels 10. Collaborate with interdisciplinary team and initiate plans and interventions as needed 12/06/2024 1127 by VICTOR M Rodriguez Outcome: Adequate for Discharge 12/06/2024 105 by VICTOR M Rodriguez Outcome: Progressing Note: Evaluation of progress towards goal: Ongoing Goal: Patient's nutritional intake is adequate Description: Patient's goal is: INTERVENTIONS 1. Assess and monitor food intake and supplements, patient food preferences, nausea, vomiting, labs, oral cavity (gums, teeth, tongue, mucosa), proper denture fit, and cultural beliefs 2. Monitor for signs of hypoglycemia and hyperglycemia 3. Collaborate with interdisciplinary team and initiate plan and interventions as ordered 4. Monitor patient's weight 5. Assist patient with meals/food selection 6. Assist patient with eating 7. Allow adequate time for meals 8. Provide pleasant environment during mealtime 9. Increase social contact during mealtimes 10. Plan activities to conserve energy 11. Encourage/perform oral hygiene as appropriate 12. Encourage patient to take dietary supplement as ordered 13. Collaborate with clinical life guard 14. Include patient/ patient's labor relations representative in decisions related to nutrition 12/06/2024 1127 by VICTOR M Rodriguez Outcome: Adequate for Discharge 12/06/2024 1059 by VICTOR M Rodriguez Outcome: Progressing Note: Evaluation of progress towards goal: Ongoing Problem: Urinary Incontinence Goal: Perineal skin integrity is maintained or improved Description: INTERVENTIONS 1. Assess genitourinary system, perineal skin, labs (urinalysis), and history of incontinence to include past management, aggravating, and alleviating factors 2. Keep skin clean and dry 3. Apply skin protectant 4. Develop skin care regimen 5. Provide privacy when changing patients incontinence device to maintain their dignity 6. Consider placing an indwelling catheter 7. Collaborate with interdisciplinary team and initiate plans and interventions as needed 12/06/2024 1127 by VICTOR M Rodriguez Outcome: Adequate for Discharge 12/06/2024 1059 by VICTOR M Rodriguez Outcome: Progressing Note: Evaluation of progress towards goal: Ongoing * Plan of Care - Jennifer Benson RN - 12/06/2024 11:00 AM EDT Problem: Pain Goal: Patient goal is pain score less than 4, able to rest, and participant in treatment plan as appropriate Description: INTERVENTIONS: 1. Encourage patient or legal labor relations representative to report early pain and ask for pain medicine when needed 2. Assess pain using appropriate pain scale and include the scale used when documenting 3. Administer analgesics based on type and severity of pain and evaluate response within appropriate time frame 4. Implement non-pharmacological measures as appropriate and evaluate response 5. Consider cultural and social influences on pain and pain management 6. Notify LIP if interventions ineffective or patient reports new pain 7. Monitor vital signs including pulse ox, end-tidal CO2 based on pain intervention 8. Reassess pain per policy 9. Teach patient or legal labor relations representative interventions for comforting Outcome: Progressing Note: Evaluation of progress towards goal: Ongoing Problem: Safety Goal: Patient will be injury free during hospitalization Description: INTERVENTIONS: 1. Assess patient's risk for falls and implement fall prevention plan of care per policy 2. Provide and maintain a safe environment 3. Proper use of double Identifiers 4. Medication administration using the 5 rights 5. Hand hygiene 6. Specimens are labeled at the bedside 7. Instruct patient/ patient labor relations representative about use of safety devices 8. Include patient/ patient labor relations representative in decisions related to safety Outcome: Progressing Note: Evaluation of progress towards goal: Ongoing Problem: Infection Goal: Absence of infection during hospitalization Description: INTERVENTIONS 1. Assess and monitor for signs and symptoms of infection. 2. Monitor lab/diagnostic results. 3. Monitor all insertion sites i.e., indwelling lines, tubes and drains. 4. Monitor endotracheal (as able) and nasal secretions for changes in amount and color. 5. Administer medications as ordered. 6. Instruct and encourage patient and family to use good hand hygiene technique. 7. Identify and instruct patient/patient labor relations representative in use of appropriate isolation precautionsfor identified infection/symptoms. 8. Provide and discuss with patient/patient labor relations representative on educational MDRO sheet. 9. Encourage and monitor nutritional status daily and consult life guard if indicated. 10. Implement neutropenic guidelines as needed. Outcome: Progressing Note: Evaluation of progress towards goal: Ongoing Problem: Knowledge Deficit Goal: Patient/patient labor relations representative demonstrates understanding of disease process, treatment plan,medications, and discharge instructions Description: INTERVENTIONS 1. Complete learning assessment and assess knowledge base 2. Provide teaching at level of understanding 3. Provide teaching via preferred learning method(s) Outcome: Progressing Note: Evaluation of progress towards goal: Ongoing Problem: Discharge Planning Goal: Discharge to post-acute care, other facility, or home with appropriate resources Description: Patient's goal is: INTERVENTIONS 1. Conduct assessment to determine patient/family and health care team treatment goals, and need for post-acute services based on payer coverage, community resources, and patient preferences, and barriers to discharge 2. Coordinate with Social work, Care Navigation, and Utilization Review to arrange appropriate level of services according to patient's needs based on patient preference and payer coverage in collaboration with the physician and health care team 3. Address psychosocial, clinical, and financial barriers to discharge as identified in assessment in conjunction with the patient/family and health care team 4. Consult appropriate ancillary services (i.e.. PT/OT/ST, etc) as needed 5. Communicate with and update the patient/family, physician, and health care team regarding progress on the discharge plan 6. Identify discharge learning needs (meds, wound care, etc). 7. Arrange for needed discharge transportation as appropriate Outcome: Progressing Note: Evaluation of progress towards goal: Ongoing Problem: Moderate - High Risk Fall Score Description: Shearer Fall Score of =/> 25 or indicated by [facility] Assessment Goal: Patient should be free from fall Description: Interventions: 1. [place] to environment 2. Hourly rounds addressing the 4 P's (Pain, Positioning, Possessions, Potty) 3. Clear area of hazards (spills, clutter, electrical cords, unnecessary equipment) 4. Place equipment (bed & TV controls, call light, phone, urinal) within reach 5. Encourage patient to wear glasses and hearing aides as appropriate 6. Maintain bed in lowest position 7. Lock wheels on bed/wheelchair 8. Provide adequate lighting, including night light 9. Assess need for additional bedding, food/fluids, pain med's prior to sleep/routinely 10. Provide gripper slippers or personal non-skid footwear 11. Teach patient and patient labor relations representative to maintain environment for safety and engage in all aspects of fall prevention program 12. Remind patient to call for help before getting out of bed 13. Initiate bed/chair/exit alarms supportive devices as appropriate, (chair wedge, no-skid floor mat, raised edge mattress, hip protectors) 14. Locate patient bed assignment for optimal visualization 15. Evaluate and identify Safe Patient Handling Equipment needs 16. Provide supervision when out of bed or chair 17. Utilize gait belt as needed to assist with ambulation 18. Place adaptive equipment (cane, walker) within reach 19. Request patient labor relations representative bring adaptive equipment/mobility aids from home or obtain and provide as needed 20. Consult pharmacy regarding effects of med's affecting mobility, cognition, and alternatives 21. Obtain physician order for PT if risk factors associated with mobility are present 22. Obtain physician order for OT as appropriate 23. Utilize diversional activities 24. Educate patient and patient labor relations representative how to maintain a safe environment during visitationtimes (notify nurse prior to leaving bedside) 25. Consider appropriateness of medical or non-medical typist 26. Set up voiding schedule as appropriate (every 2 hours) Outcome: Progressing Note: Evaluation of progress towards goal: Ongoing Problem: Potential for Compromised Skin Integrity Goal: Skin integrity is maintained or improved Description: Patient's goal is: INTERVENTIONS 1. Perform initial skin assessment on admission and as needed 2. Turn patient every 2 hours and PRN 3. Relieve pressure to bony prominences 4. Avoid shearing 5. Keep skin clean and dry 6. Alternate a full bath with partial baths for elderly 7. Apply lotion/moisturizer on skin 8. Monitor patient's hygiene practices 9. Float heels 10. Collaborate with interdisciplinary team and initiate plans and interventions as needed Outcome: Progressing Note: Evaluation of progress towards goal: Ongoing Goal: Patient's nutritional intake is adequate Description: Patient's goal is: INTERVENTIONS 1. Assess and monitor food intake and supplements, patient food preferences, nausea, vomiting, labs, oral cavity (gums, teeth, tongue, mucosa), proper denture fit, and cultural beliefs 2. Monitor for signs of hypoglycemia and hyperglycemia 3. Collaborate with interdisciplinary team and initiate plan and interventions as ordered 4. Monitor patient's weight 5. Assist patient with meals/food selection 6. Assist patient with eating 7. Allow adequate time for meals 8. Provide pleasant environment during mealtime 9. Increase social contact during mealtimes 10. Plan activities to conserve energy 11. Encourage/perform oral hygiene as appropriate 12. Encourage patient to take dietary supplement as ordered 13. Collaborate with clinical life guard 14. Include patient/ patient's labor relations representative in decisions related to nutrition Outcome: Progressing Note: Evaluation of progress towards goal: Ongoing Problem: Potential for Compromised Skin Integrity Goal: Patient's nutritional intake is adequate Description: Patient's goal is: INTERVENTIONS 1. Assess and monitor food intake and supplements, patient food preferences, nausea, vomiting, labs, oral cavity (gums, teeth, tongue, mucosa), proper denture fit, and cultural beliefs 2. Monitor for signs of hypoglycemia and hyperglycemia 3. Collaborate with interdisciplinary team and initiate plan and interventions as ordered 4. Monitor patient's weight 5. Assist patient with meals/food selection 6. Assist patient with eating 7. Allow adequate time for meals 8. Provide pleasant environment during mealtime 9. Increase social contact during mealtimes 10. Plan activities to conserve energy 11. Encourage/perform oral hygiene as appropriate 12. Encourage patient to take dietary supplement as ordered 13. Collaborate with clinical life guard 14. Include patient/ patient's labor relations representative in decisions related to nutrition Outcome: Progressing Note: Evaluation of progress towards goal: Ongoing Problem: Urinary Incontinence Goal: Perineal skin integrity is maintained or improved Description: INTERVENTIONS 1. Assess genitourinary system, perineal skin, labs (urinalysis), and history of incontinence to include past management, aggravating, and alleviating factors 2. Keep skin clean and dry 3. Apply skin protectant 4. Develop skin care regimen 5. Provide privacy when changing patients incontinence device to maintain their dignity 6. Consider placing an indwelling catheter 7. Collaborate with interdisciplinary team and initiate plans and interventions as needed Outcome: Progressing Note: Evaluation of progress towards goal: Ongoing * PT/OT/USED CAR SALESPERSON - Ching Garcia, PT - 12/06/2024 8:55 AM EDT Physical Therapy Evaluation Discharge Recommendations for Safe Patient Transition PT Discharge Disposition Recommendation: Home PT Home Recommendations: Intermittent caregiver support for: (Homemaking and ADL's as needed) PT Therapy Recommendations: Home Physical Therapy Current Impairments Informing Therapy Recommendation: Endurance level, Ambulation status/safety Patient returned to bed at end of session. Call button and overbed table within reach. Past Medical History: Diagnosis Date Agoraphobia Angina at rest Anxiety BiPAP (biphasic positive airway pressure) dependence Bipolar disorder [facility]) Breast injury CHF (congestive heart failure) [place] Chipped tooth Chronic kidney disease COPD (chronic obstructive pulmonary disease) [place]) Coronary artery disease Dementia ([facility]) Depression Diarrhea frequent bouts /involuntary Dizziness Fracture, vertebral, lumbar closed ([facility]) GERD (gastroesophageal reflux disease) Headache History of coronary artery bypass graft 08/14/2020 Liver disease Low back pain Lump or mass in breast Memory loss Myocardial infarction ([facility]) Apr 2009, swith stent placement Obesity BONY treated with BiPAP 07/31/2022 Osteoarthritis Panic disorder Psoriasis PTSD (post-traumatic stress disorder) Pulmonary emboli ([facility]) Rib fracture 09/2023 lt Rotator cuff tear L Shortness of breath Sleep apnea Visual impairment glasses Past Surgical History: Procedure Laterality Date BREAST BIOPSY BREAST CYST EXCISION Cardiac catheterization N/A 01/09/2020 Performed by Yefri Khan MD at [facility] Cardiac catheterization-LV Cors N/A 08/06/2020 Performed by Hazel Painting MD at [facility] SECTION CHOLECYSTECTOMY COLONOSCOPY N/A 04/03/2017 Performed by Jose Beaver MD at [facility] Coronary angiogram and left ventricular gram/pressure N/A 01/09/2020 Performed by Yefri Khan MD at [facility] CORONARY ANGIOPLASTY WITH STENT PLACEMENT CORONARY ARTERY BYPASS GRAFT X4/ THOMPSON/ SVG X3 / RIGHT UPPER LEG OPEN VEIN HARVEST/ LEFT UPPER LEG OPEN VEING HARVEST /GINETTE N/A 08/13/2020 Performed by Leroy Meng MD at [facility] Drug eluting stent left anterior descending N/A 01/09/2020 Performed by Yefri Khan MD at [facility] EXCISION SEROMA LOWER EXTREMITY Left 10/07/2022 Performed by Victor Hugo Vincent DO at [facility] Intravascular ultrasound coronary N/A 08/06/2020 Performed by Hazel Painting MD at [facility] Intravascular ultrasound coronary N/A 01/09/2020 Performed by Yefri Khan MD at [facility] NOTCHARGED/Thrombolysis arterial initial treatment N/A 01/09/2020 Performed by Yefri Khan MD at [facility] TONSILLECTOMY 6 Clicks: Basic Mobility Turning from your back to your side while in a flat bed without using bed rails?: None Moving from lying on your back to sitting on side of flat bed without using bed rails?: None Moving to and from bed to a chair (including w/c)?: A little Standing up from a chair using your arms (e.g. w/c or bedside chair)?: None To walk in hospital room?: A little Climbing 3-5 steps with a railing?: A little Scoring 6 Clicks: Basic Mobility Raw Score: 21 CMS G Code Modifier: CJ Therapy Plan Need for skilled Physical Therapy to address deficits in functional mobility due to a status decline resulting from acute exacerbation of COPD. PT Treatment/Interventions: Functional transfer training, LE strengthening/ROM, Endurance training,Balance, Gait training, Neuromuscular reeducation, Functional activities, Coordination activities PT Frequency: 2-3days/week PT Duration: 10 days Assessment Patient Assessment Therapy Problem List: Decreased balance, Decreased endurance, Decreased mobility, Decreased LE strength Patient Response to Treatment: Tolerated evaluation without adverse reaction Mood/Affect: Appropriate for circumstances Rehab Prognosis: Good, With continued PT status post acute discharge Visit RN Communication: Yes Medical Record Reviewed: Yes PT Type of Visit: Evaluation Precautions Activity: Early mobility pass; ok to evaluate per VICTOR M Rodriguez. Equipment: Nonskid socks Weight Bearing Status: full Telemetry/Adoption Specialist: Yes Oxygen Order : Yes Oxygen Used: 4.5L Subjective Physical Therapy Comments: Patient states she's feeling much better today. Pain Assessment Pain Assessment: No/denies pain (States she took Tylenol this morning for a headache but it's gone.) Home Living Type of Home: Apartment ([facility]; patient's apartment is on the second floor. Elevator to access.) Home Layout: One level Stairs to Enter: 0 Bathroom Shower/Tub: Walk-in shower Bathroom Toilet: Standard Bathroom Equipment: Shower chair, Hand-held shower, Grab bars in shower Bathroom Accessibility: Accessible via walker Home Equipment: 4 Wheeled walker, Home oxygen (Bipap at home) Prior Function Lives With: Friends Receives Help From: Friend(s) Level of Mobility: Independent with ADLs and functional transfers or gait (Amb with rollator) Homemaking Assistance: Needs assistance (Patient was doing her own cooking; roommate does the cleaning.) Hearing / Speech / Vision Hearing: Within Functional Limits Speech: Within Functional Limits Cognition Orientation Level: Oriented X4 Sensation Overall Sensation Status: Within Functional Limits Bed Mobility Rolling: Independent, Right Supine to Sit: Independent, Right Sit to Supine: Independent, Right Transfers Sit to Stand: Independent Stand to Sit: Independent Other: Patient dizzy in standing; SaO2 unchanged, but patient states she felt better after some deep breathing. Gait Base of Support: Wide Pattern: Decreased evaristo, R Decreased foot clearance, L Decreased foot clearance Gait Assistance: Contact guard assist Assistive Device: (STREETCAR CONDUCTOR) Gait Distance: (3 steps at bedside to reposition) Limiting Factors to Gait: Weakness Other: Patient did not want to go far due to feeling unsteady. Balance Sitting Balance: Static: Good Sitting Balance: Dynamic: Good Standing Balance: Static: Fair Standing Balance: Dynamic: Fair, Poor Other: Patient requires UE assist for safe standing. RUE Assessment: Within Functional Limits LUE Assessment: Within Functional Limits RLE Assessment: (ROM WFL, strength 4-/5) LLE Assessment: (ROM WFL, strength 4-/5) Activity Tolerance Endurance: Tolerates <30 minutes activity WITHOUT vital sign changes Pre-Activity SpO2: 96 % During Activity SpO2 : 96 % Post-Activity SpO2: 96 % Plan Physical Therapy Care Plan Physical Therapy Care Plan (Active) Template: PT - Physical Therapy Problem: Activity Tolerance Dates: Start: 12/06/24 Disciplines: PT Goal: Tolerate 30 minutes of activity WITH rest breaks Dates: Start: 12/06/24 Expected End: 12/15/24 Description: To increase safety with ADL's and gait. Disciplines: PT Problem: Gait Dates: Start: 12/06/24 Disciplines: PT Goal: Patient will perform gait Independently Dates: Start: 12/06/24 Expected End: 12/15/24 Description: Patient to amb 100' with least restrictive device to increase IND with ADL's Disciplines: PT Problem: Standing Balance Dates: Start: 12/06/24 Disciplines: PT Goal: Improve balance to fair Dates: Start: 12/06/24 Expected End: 12/15/24 Description: To increase safety with ADL's and gait. Disciplines: PT Physical Therapy Care Plan (Resolved) There are no resolved problems. Principal Problem: Acute on chronic respiratory failure with hypoxia and hypercapnia ([facility]) Active Problems: Bipolar 2 disorder, major depressive episode ([facility]) Stage 3a chronic kidney disease ([facility]) Pulmonary hypertension ([facility]) * Plan of Care - Axel Hickman RN - 12/05/2024 9:00 PM EDT Problem: Pain Goal: Patient goal is pain score less than 4, able to rest, and participant in treatment plan as appropriate Description: INTERVENTIONS: 1. Encourage patient or legal labor relations representative to report early pain and ask for pain medicine when needed 2. Assess pain using appropriate pain scale and include the scale used when documenting 3. Administer analgesics based on type and severity of pain and evaluate response within appropriate time frame 4. Implement non-pharmacological measures as appropriate and evaluate response 5. Consider cultural and social influences on pain and pain management 6. Notify LIP if interventions ineffective or patient reports new pain 7. Monitor vital signs including pulse ox, end-tidal CO2 based on pain intervention 8. Reassess pain per policy 9. Teach patient or legal labor relations representative interventions for comforting Outcome: Progressing Note: Evaluation of progress towards goal: Pt able to report pain according to 0/10 pain scale. Medicating patient for pain per orders. Problem: Safety Goal: Patient will be injury free during hospitalization Description: INTERVENTIONS: 1. Assess patient's risk for falls and implement fall prevention plan of care per policy 2. Provide and maintain a safe environment 3. Proper use of double Identifiers 4. Medication administration using the 5 rights 5. Hand hygiene 6. Specimens are labeled at the bedside 7. Instruct patient/ patient labor relations representative about use of safety devices 8. Include patient/ patient labor relations representative in decisions related to safety Outcome: Progressing Note: Evaluation of progress towards goal: Pt's risk for falls assessed and fall prevention implemented as needed, safe environment provided and maintained, hand hygiene completed. Problem: Infection Goal: Absence of infection during hospitalization Description: INTERVENTIONS 1. Assess and monitor for signs and symptoms of infection. 2. Monitor lab/diagnostic results. 3. Monitor all insertion sites i.e., indwelling lines, tubes and drains. 4. Monitor endotracheal (as able) and nasal secretions for changes in amount and color. 5. Administer medications as ordered. 6. Instruct and encourage patient and family to use good hand hygiene technique. 7. Identify and instruct patient/patient labor relations representative in use of appropriate isolation precautionsfor identified infection/symptoms. 8. Provide and discuss with patient/patient labor relations representative on educational MDRO sheet. 9. Encourage and monitor nutritional status daily and consult life guard if indicated. 10. Implement neutropenic guidelines as needed. Outcome: Progressing Note: Evaluation of progress towards goal: Patient VS WNL, remains afebrile for shift. Continue to monitor. Problem: Knowledge Deficit Goal: Patient/patient labor relations representative demonstrates understanding of disease process, treatment plan,medications, and discharge instructions Description: INTERVENTIONS 1. Complete learning assessment and assess knowledge base 2. Provide teaching at level of understanding 3. Provide teaching via preferred learning method(s) Outcome: Progressing Note: Evaluation of progress towards goal: POC discussed with patient. Questions answered PRN. Problem: Moderate - High Risk Fall Score Description: Shearer Fall Score of =/> 25 or indicated by [facility] Assessment Goal: Patient should be free from fall Description: Interventions: 1. [place] to environment 2. Hourly rounds addressing the 4 P's (Pain, Positioning, Possessions, Potty) 3. Clear area of hazards (spills, clutter, electrical cords, unnecessary equipment) 4. Place equipment (bed & TV controls, call light, phone, urinal) within reach 5. Encourage patient to wear glasses and hearing aides as appropriate 6. Maintain bed in lowest position 7. Lock wheels on bed/wheelchair 8. Provide adequate lighting, including night light 9. Assess need for additional bedding, food/fluids, pain med's prior to sleep/routinely 10. Provide gripper slippers or personal non-skid footwear 11. Teach patient and patient labor relations representative to maintain environment for safety and engage in all aspects of fall prevention program 12. Remind patient to call for help before getting out of bed 13. Initiate bed/chair/exit alarms supportive devices as appropriate, (chair wedge, no-skid floor mat, raised edge mattress, hip protectors) 14. Locate patient bed assignment for optimal visualization 15. Evaluate and identify Safe Patient Handling Equipment needs 16. Provide supervision when out of bed or chair 17. Utilize gait belt as needed to assist with ambulation 18. Place adaptive equipment (cane, walker) within reach 19. Request patient labor relations representative bring adaptive equipment/mobility aids from home or obtain and provide as needed 20. Consult pharmacy regarding effects of med's affecting mobility, cognition, and alternatives 21. Obtain physician order for PT if risk factors associated with mobility are present 22. Obtain physician order for OT as appropriate 23. Utilize diversional activities 24. Educate patient and patient labor relations representative how to maintain a safe environment during visitationtimes (notify nurse prior to leaving bedside) 25. Consider appropriateness of medical or non-medical typist 26. Set up voiding schedule as appropriate (every 2 hours) Outcome: Progressing Note: Evaluation of progress towards goal: Pt remains free from falls or accidental injury during shift. Fall prevention measures in place. Hourly rounding per RN and maintained. * Discharge Planning Note - DEENA Raines - 12/05/2024 11:27 AM EDT Images from the original note were not included. Ongoing Assessment for Discharge Needs Reviewed discharge milestones and patient needs related to discharge plan. Current estimated discharge date of Dec 08, 2024 has been reviewed by treatment team. Update from PCP/attending, pt home Bipap is not working. Call placed to pt aleksandra Green to has DME contact info. Aleksandra Green informs DME is [facility] at [phone]. Call placed to [facility] & per Kodi they replaced pt Bipap November 2023, they have no documentationthat it has not been working or pt needed a new mask. [facility] does not have a respiratory therapist they can send to pt home to check out machine, pt would have to go to [facility] to see their respiratory therapist to check out machine. Concepcion from [facility] also informs pt has been non compliant with wearing BiPap. Update to attending & RN. Ongoing Assessment for Discharge Needs Flowsheet Row Most Recent Value Referral To Community Referrals / Resources Provided Denies needs Services Requested Patient expects to be discharged to: home Does the patient wish to have family/friend/caregiver involved in their discharge planning? No, thepatient does not wish to have family/friend/caregiver involved in their discharge planning Discharge Disposition Home with self care Who is the existing DME Provider? -- [[facility] in [place] per pt] Does the patient need discharge transportation arranged? No DC Planning Complete Discharge Milestones Yes Respiratory Indicator Who is the existing DME Provider? -- [[facility] in [place] per pt] * Discharge Planning Note - DEENA Raines - 12/05/2024 10:24 AM EDT Images from the original note were not included. Initial Assessment Initial Assessment Flowsheet Row Most Recent Value Patient Information Initial Pre-Hospitalization Assessment Completed? Completed Primary Caregiver Self Support System Children, Friends [friend Norma, 3 children in [place]] Discharge Planning Living Arrangements Alone Assistance Needed walker, home O2, [employer] S[employer] Type of Residence Private residence Private Residence 1 story Can patient reside on one level? Yes Residence Accessibility Steps into home Number of Steps 0 Home Care Services No Community Agencies Currently Utilized Home Delivered Meals, Medicaid Waiver Services [[employer]:Title I Director Sujatha] Community Referrals / Resources Provided Denies needs Who is the existing DME Provider? -- [[employer] in [place] per pt] Established DME Comments home O2, Bipap Stressors Type of stressor -- [does not endorse] Income Information Income Information Disability IP Hunger/Food Insecurity Screening Within the past 12 months we worried whether our food would run out before we got money to buy more. Never True Within the past 12 months the food we bought just didn't last and we didn't have money to get more.Never True Hunger Screening Complete? Yes Pt. Eligible for Food / Voucher No If Eligible: Received Food Box Not Offered to Patient Warm Handoff Complete Caregiver/Family Member Caregiver/Family Member pt gives permission to speak with her friend Norma if needed Caregiver/Support System Limitations Patient/Caregiver Goals Patient/Caregiver Goals Home No Needs Home No Needs Alone Community Provider Referral Community Provider Referral None Services Requested Patient expects to be discharged to: home Does the patient wish to have family/friend/caregiver involved in their discharge planning? No, thepatient does not wish to have family/friend/caregiver involved in their discharge planning Discharge Disposition Home with self care Who is the existing DME Provider? -- [[facility] in [place] per pt] Does the patient need discharge transportation arranged? No DC Planning Complete Discharge Milestones Yes Services Requested: Services Requested Patient expects to be discharged to:: home Does the patient wish to have family/friend/caregiver involved in their discharge planning?: No, the patient does not wish to have family/friend/caregiver involved in their discharge planning Discharge Disposition: Home with self care Who is the existing DME Provider?: ([employer] in [place] per pt) Does the patient need discharge transportation arranged?: No DC Planning Complete Discharge Milestones: Yes Patient Goals: Patient/Caregiver Goals Patient/Caregiver Goals: Home No Needs Home No Needs: Alone Goals home (pt-stated) Evaluation of progress towards goal: feeling better Additional Comments (If Applicable) Chart reviewed. Introduced self & role of SW, pleasant pt agreeable to conversation; assessment/goals as above. Pt does not endorse alcohol/substance use. Pt does not endorse food insecurity or financial stressors. Pt is able to afford home medications. Pt has functioning water, heat, cooling & electric inthe home. Pt does not endorse any type of domestic abuse. Pt friend provides transportation. Pt is independent in/out of the home, performs own household tasks, meal preparation & grocery shops. Pt relayedfriend Norma provides natural supports. Patient's preferred pharmacy is [id number]. PCP verified as Dr. Helen Steiner. Pt utilizing [employer], meals on wheels, has walker, Bipap & home O2. Educated on Home Health Care; pt does not endorse any current home going needs. Opportunity provided to ask questions, pt does not endorse any at this time. Plan to prevent readmission is for pt to follow up with PCP, pt prefers to make own appointment, follow DC instructions including medication compliance and to reach out to health care team as needed. Care Navigation will continue to follow patient progress to determine appropriate safe care transition needs. * Plan of Care - Christy Gonzalez RN - 12/05/2024 8:00 AM EDT Problem: Pain Goal: Patient goal is pain score less than 4, able to rest, and participant in treatment plan as appropriate Description: INTERVENTIONS: 1. Encourage patient or legal labor relations representative to report early pain and ask for pain medicine when needed 2. Assess pain using appropriate pain scale and include the scale used when documenting 3. Administer analgesics based on type and severity of pain and evaluate response within appropriate time frame 4. Implement non-pharmacological measures as appropriate and evaluate response 5. Consider cultural and social influences on pain and pain management 6. Notify LIP if interventions ineffective or patient reports new pain 7. Monitor vital signs including pulse ox, end-tidal CO2 based on pain intervention 8. Reassess pain per policy 9. Teach patient or legal labor relations representative interventions for comforting Outcome: Progressing Note: Evaluation of progress towards goal: Pt able to report pain according to 0/10 pain scale. Medicating patient for pain per orders. Problem: Safety Goal: Patient will be injury free during hospitalization Description: INTERVENTIONS: 1. Assess patient's risk for falls and implement fall prevention plan of care per policy 2. Provide and maintain a safe environment 3. Proper use of double Identifiers 4. Medication administration using the 5 rights 5. Hand hygiene 6. Specimens are labeled at the bedside 7. Instruct patient/ patient labor relations representative about use of safety devices 8. Include patient/ patient labor relations representative in decisions related to safety Outcome: Progressing Note: Evaluation of progress towards goal: Safety measures and hourly rounding in place. Pt remainsfree of falls and injury at this time. Will continue to monitor. Problem: Knowledge Deficit Goal: Patient/patient labor relations representative demonstrates understanding of disease process, treatment plan,medications, and discharge instructions Description: INTERVENTIONS 1. Complete learning assessment and assess knowledge base 2. Provide teaching at level of understanding 3. Provide teaching via preferred learning method(s) Outcome: Progressing Note: Evaluation of progress towards goal: POC discussed with patient. Questions answered PRN. Problem: Discharge Planning Goal: Discharge to post-acute care, other facility, or home with appropriate resources Description: Patient's goal is: INTERVENTIONS 1. Conduct assessment to determine patient/family and health care team treatment goals, and need for post-acute services based on payer coverage, community resources, and patient preferences, and barriers to discharge 2. Coordinate with Social work, Care Navigation, and Utilization Review to arrange appropriate level of services according to patient's needs based on patient preference and payer coverage in collaboration with the physician and health care team 3. Address psychosocial, clinical, and financial barriers to discharge as identified in assessment in conjunction with the patient/family and health care team 4. Consult appropriate ancillary services (i.e.. PT/OT/ST, etc) as needed 5. Communicate with and update the patient/family, physician, and health care team regarding progress on the discharge plan 6. Identify discharge learning needs (meds, wound care, etc). 7. Arrange for needed discharge transportation as appropriate Outcome: Progressing Note: Evaluation of progress towards goal: Pt will be discharged to post acute care, other facilityor home with appropriate resources. * Plan of Care - Axel Hickman RN - 12/04/2024 9:12 PM EDT Problem: Pain Goal: Patient goal is pain score less than 4, able to rest, and participant in treatment plan as appropriate Description: INTERVENTIONS: 1. Encourage patient or legal labor relations representative to report early pain and ask for pain medicine when needed 2. Assess pain using appropriate pain scale and include the scale used when documenting 3. Administer analgesics based on type and severity of pain and evaluate response within appropriate time frame 4. Implement non-pharmacological measures as appropriate and evaluate response 5. Consider cultural and social influences on pain and pain management 6. Notify LIP if interventions ineffective or patient reports new pain 7. Monitor vital signs including pulse ox, end-tidal CO2 based on pain intervention 8. Reassess pain per policy 9. Teach patient or legal labor relations representative interventions for comforting Outcome: Progressing Note: Evaluation of progress towards goal: Pt able to report pain according to 0/10 pain scale. Medicating patient for pain per orders. Problem: Safety Goal: Patient will be injury free during hospitalization Description: INTERVENTIONS: 1. Assess patient's risk for falls and implement fall prevention plan of care per policy 2. Provide and maintain a safe environment 3. Proper use of double Identifiers 4. Medication administration using the 5 rights 5. Hand hygiene 6. Specimens are labeled at the bedside 7. Instruct patient/ patient labor relations representative about use of safety devices 8. Include patient/ patient labor relations representative in decisions related to safety Outcome: Progressing Note: Evaluation of progress towards goal: Pt's risk for falls assessed and fall prevention implemented as needed, safe environment provided and maintained, hand hygiene completed. Problem: Infection Goal: Absence of infection during hospitalization Description: INTERVENTIONS 1. Assess and monitor for signs and symptoms of infection. 2. Monitor lab/diagnostic results. 3. Monitor all insertion sites i.e., indwelling lines, tubes and drains. 4. Monitor endotracheal (as able) and nasal secretions for changes in amount and color. 5. Administer medications as ordered. 6. Instruct and encourage patient and family to use good hand hygiene technique. 7. Identify and instruct patient/patient labor relations representative in use of appropriate isolation precautionsfor identified infection/symptoms. 8. Provide and discuss with patient/patient labor relations representative on educational MDRO sheet. 9. Encourage and monitor nutritional status daily and consult life guard if indicated. 10. Implement neutropenic guidelines as needed. Outcome: Progressing Note: Evaluation of progress towards goal: Patient VS WNL, remains afebrile for shift. Continue to monitor. Problem: Knowledge Deficit Goal: Patient/patient labor relations representative demonstrates understanding of disease process, treatment plan,medications, and discharge instructions Description: INTERVENTIONS 1. Complete learning assessment and assess knowledge base 2. Provide teaching at level of understanding 3. Provide teaching via preferred learning method(s) Outcome: Progressing Note: Evaluation of progress towards goal: POC discussed with patient. Questions answered PRN. Problem: Moderate - High Risk Fall Score Description: Shearer Fall Score of =/> 25 or indicated by [facility] Assessment Goal: Patient should be free from fall Description: Interventions: 1. [place] to environment 2. Hourly rounds addressing the 4 P's (Pain, Positioning, Possessions, Potty) 3. Clear area of hazards (spills, clutter, electrical cords, unnecessary equipment) 4. Place equipment (bed & TV controls, call light, phone, urinal) within reach 5. Encourage patient to wear glasses and hearing aides as appropriate 6. Maintain bed in lowest position 7. Lock wheels on bed/wheelchair 8. Provide adequate lighting, including night light 9. Assess need for additional bedding, food/fluids, pain med's prior to sleep/routinely 10. Provide gripper slippers or personal non-skid footwear 11. Teach patient and patient labor relations representative to maintain environment for safety and engage in all aspects of fall prevention program 12. Remind patient to call for help before getting out of bed 13. Initiate bed/chair/exit alarms supportive devices as appropriate, (chair wedge, no-skid floor mat, raised edge mattress, hip protectors) 14. Locate patient bed assignment for optimal visualization 15. Evaluate and identify Safe Patient Handling Equipment needs 16. Provide supervision when out of bed or chair 17. Utilize gait belt as needed to assist with ambulation 18. Place adaptive equipment (cane, walker) within reach 19. Request patient labor relations representative bring adaptive equipment/mobility aids from home or obtain and provide as needed 20. Consult pharmacy regarding effects of med's affecting mobility, cognition, and alternatives 21. Obtain physician order for PT if risk factors associated with mobility are present 22. Obtain physician order for OT as appropriate 23. Utilize diversional activities 24. Educate patient and patient labor relations representative how to maintain a safe environment during visitationtimes (notify nurse prior to leaving bedside) 25. Consider appropriateness of medical or non-medical typist 26. Set up voiding schedule as appropriate (every 2 hours) Outcome: Progressing Note: Evaluation of progress towards goal: Pt remains free from falls or accidental injury during shift. Fall prevention measures in place. Hourly rounding per RN and maintained. * Plan of Care - Christy Gonzalez RN - 12/04/2024 10:10 AM EDT Problem: Pain Goal: Patient goal is pain score less than 4, able to rest, and participant in treatment plan as appropriate Description: INTERVENTIONS: 1. Encourage patient or legal labor relations representative to report early pain and ask for pain medicine when needed 2. Assess pain using appropriate pain scale and include the scale used when documenting 3. Administer analgesics based on type and severity of pain and evaluate response within appropriate time frame 4. Implement non-pharmacological measures as appropriate and evaluate response 5. Consider cultural and social influences on pain and pain management 6. Notify LIP if interventions ineffective or patient reports new pain 7. Monitor vital signs including pulse ox, end-tidal CO2 based on pain intervention 8. Reassess pain per policy 9. Teach patient or legal labor relations representative interventions for comforting Outcome: Progressing Note: Evaluation of progress towards goal: Pt able to report pain according to 0/10 pain scale. Medicating patient for pain per orders. Problem: Safety Goal: Patient will be injury free during hospitalization Description: INTERVENTIONS: 1. Assess patient's risk for falls and implement fall prevention plan of care per policy 2. Provide and maintain a safe environment 3. Proper use of double Identifiers 4. Medication administration using the 5 rights 5. Hand hygiene 6. Specimens are labeled at the bedside 7. Instruct patient/ patient labor relations representative about use of safety devices 8. Include patient/ patient labor relations representative in decisions related to safety Outcome: Progressing Note: Evaluation of progress towards goal: Safety measures and hourly rounding in place. Pt remainsfree of falls and injury at this time. Will continue to monitor. Problem: Knowledge Deficit Goal: Patient/patient labor relations representative demonstrates understanding of disease process, treatment plan,medications, and discharge instructions Description: INTERVENTIONS 1. Complete learning assessment and assess knowledge base 2. Provide teaching at level of understanding 3. Provide teaching via preferred learning method(s) Outcome: Progressing Note: Evaluation of progress towards goal: POC discussed with patient. Questions answered PRN. Problem: Discharge Planning Goal: Discharge to post-acute care, other facility, or home with appropriate resources Description: Patient's goal is: INTERVENTIONS 1. Conduct assessment to determine patient/family and health care team treatment goals, and need for post-acute services based on payer coverage, community resources, and patient preferences, and barriers to discharge 2. Coordinate with Social work, Care Navigation, and Utilization Review to arrange appropriate level of services according to patient's needs based on patient preference and payer coverage in collaboration with the physician and health care team 3. Address psychosocial, clinical, and financial barriers to discharge as identified in assessment in conjunction with the patient/family and health care team 4. Consult appropriate ancillary services (i.e.. PT/OT/ST, etc) as needed 5. Communicate with and update the patient/family, physician, and health care team regarding progress on the discharge plan 6. Identify discharge learning needs (meds, wound care, etc). 7. Arrange for needed discharge transportation as appropriate Outcome: Progressing Note: Evaluation of progress towards goal: Pt will be discharged to post acute care, other facilityor home with appropriate resources. documented in this encounter Plan of Treatment Upcoming Encounters Date Type Department Care Team (Latest Contact Info) Description 5 2:40 PM EDT Support Visit [facility] - Pre Admit [address] [facility] [place] [address] 5 10:00 AM EDT Hospital Encounter [facility] - Endoscopy [address] [place] [address] Michael Steiner, DO [address] [place] [address] Microcytic anemia (Primary Dx) 5 10:00 AM EDT - 5 11:00 AM EDT Surgery [facility] - Endoscopy [address] [place] [address] Michael Steiner, DO [address] [place] [address] ESOPHAGOGASTRODUODENOSCOPY DIAGNOSTIC [00204 (CPT )] 5 7:30 AM EDT Appointment [facility] - Cardiovascular [address] [facility] [id number] Inez Cook, RN [facility] [address] [place] [phone] 5 3:30 PM EDT Office Visit [facility] - Heart Failure Clinic [address] [place] [phone] Risa Summers MD [address] [place] [address] 5 1:30 PM EDT Office Visit [facility] Internal Medicine - Family Medicine [address] [place] [address] Michael Steiner, DO [address] [place] [address] Scheduled Procedures Name Priority Associated Diagnoses Date/Ti me ESOPHAGOGASTRODUODENOSCOPY DIAGNOSTIC microcytic anemia 12/20/2024 10:00 AM EDT ESOPHAGOGASTRODUODENOSCOPY DIAGNOSTIC Microcytic anemia documented as of this encounter Goals Goal Patient Goal Type Associated Problems Recent Progress Patient-Stated? Author home General Yes Jimena Snider LSW Note: Evaluation of progress towards goal: feeling better documented as of this encounter Procedures Procedure Name Priority Date/Time Associated Diagnosis Comments BLOOD GAS, VENOUS Routine 12/06/2024 8:4 8 AM EDT EXTRA TUBES LAVENDER TOP Routine 12/06/2024 5:58 AM EDT EXTRA TUBES PST TOP Routine 12/06/2024 5 :58 AM EDT EXTRA TUBES BLUE TOP Routine 12/06/2024 5:58 AM EDT EXTRA TUBES Routine 12/06/2024 5:58 AM EDT EXTRA TUBES Routine 12/06/2024 5:58 AM EDT PHOSPHORUS Routine 12/06/2024 5:58 AM EDT BASIC METABOLIC PANEL Routine 12/06/2024 5:58 AM EDT LOWER RESP CULTURE SPUTUM CULTURE INC GRAM STAIN Routine 12/05/2024 10:28 PM EDT BEDSIDE GLUCOSE Routine 12/05/2024 6:04 PM EDT BEDSIDE GLUCOSE Routine 12/05/2024 11:23 AM EDT BIPAP/CPAP/AUTOPAP Routine 12/05/2024 11 :12 AM EDT BLOOD GAS, VENOUS Routine 12/05/2024 9:2 1 AM EDT EXTRA TUBES BLUE TOP Routine 12/05/2024 4:28 AM EDT EXTRA TUBES Routine 12/05/2024 4:28 AM EDT CBC WITH AUTO DIFFERENTIAL Routine 12/05/2024 4:28 AM EDT PHOSPHORUS Routine 12/05/2024 4:28 AM EDT BASIC METABOLIC PANEL Routine 12/05/2024 4:28 AM EDT BEDSIDE GLUCOSE Routine 12/04/2024 8:45 PM EDT BEDSIDE GLUCOSE Routine 12/04/2024 5:19 PM EDT BEDSIDE GLUCOSE Routine 12/04/2024 4:33 PM EDT BLOOD GAS, VENOUS Routine 12/04/2024 1:2 8 PM EDT BEDSIDE GLUCOSE Routine 12/04/2024 11:55 AM EDT PULSE OXIMETRY, SPOT Routine 12/04/2024 9:31 AM EDT TROP I, HIGH SENSITIVITY 1 HOUR STAT 12/04/2024 8:23 AM EDT PM ED CRITICAL CARE Routine 12/04/2024 8 :15 AM EDT BLOOD GAS, VENOUS STAT 12/04/2024 7:1 6 AM EDT EXTRA TUBES BLUE TOP Routine 12/04/2024 7:15 AM EDT EXTRA TUBES Routine 12/04/2024 7:15 AM EDT TROPONIN I, HIGH SENSITIVITY 0 HOUR STAT 12/04/2024 7:14 AM EDT TROPONIN I, HIGH SENSITIVITY 0 HOUR STAT 12/04/2024 7:14 AM EDT PROCALCITONIN Add-On 12/04/2024 7:14 AM EDT LACTATE W/ REFLEX STAT 12/04/2024 7:1 4 AM EDT CBC WITH AUTO DIFFERENTIAL STAT 12/04/2024 7:14 AM EDT PHOSPHORUS Add-On 12/04/2024 7:14 AM EDT B-TYPE NATRIURETIC PEPTIDE STAT 12/04/2024 7:14 AM EDT COMPREHENSIVE METABOLIC PANEL STAT 12/04/2024 7:14 AM EDT XR CHEST 1 VW STAT 12/04/2024 7:11 AM EDT BIPAP/CPAP/AUTOPAP Routine 12/04/2024 6: 52 AM EDT ECG 12-LEAD STAT 12/04/2024 6:48 AM EDT documented in this encounter Results * (ABNORMAL) Blood gas, venous (12/06/2024 8:48 AM EDT) Sample type VENOUS 12/06/2024 8:50 AM EDT [facility] pH, Venous 7.378 7.320 - 7.420 12/06/2024 8:50 AM EDT [facility] pCO2, Venous 63.6(H) 35.0 - 50.0 mmHg 12/06/2024 8:50 AM EDT [facility] pO2, Venous 47 30 - 50 mmHg 12/06/2024 8:50 AM EDT [facility] Base, Excess 10.0(H) 0.0 - 2.0 mmol/L 12/06/2024 8:50 AM EDT [facility] HCO3, Venous 37.4(H) 20.0 - 24.0 mmol/L 12/06/2024 8:50 AM EDT [facility] %O2 Saturation, Venous 80.0 % 12/06/2024 8:50 AM EDT [facility] Joe's test N/A 12/06/2024 8:50 AM EDT [facility] Sample site N/A 12/06/2024 8:50 AM EDT [facility] Source Of Oxygen NC 12/06/2024 8:50 AM EDT [facility] venous Venous blood / Unknown 12/06/2024 8:48 AM EDT 12/06/2024 8:50 AM EDT us Michael Steiner DO LAB BLOOD ORDERABLES Final Resul t Performing Organization Address City/[facility]/ZIP Co de Phone Number [address] [place] [address], [place] * PST TOP (12/06/2024 5:58 AM EDT) Extra Tube Auto Resulted 12/06/2024 7:01 AM EDT [facility] Blood Venous blood / Unknown 12/06/2024 5:58 AM EDT 12/06/2024 6:22 AM EDT us Michael Steiner DO LAB BLOOD ORDERABLES Final Resul t Performing Organization Address City/[facility] Co de Phone Number [address] [place] [address], [place] * Lavender Top (12/06/2024 5:58 AM EDT) Extra Tube Auto Resulted 12/06/2024 7:01 AM EDT [facility] Blood Venous blood / Unknown 12/06/2024 5:58 AM EDT 12/06/2024 6:09 AM EDT us Michael Steiner DO LAB BLOOD ORDERABLES Final Resul t Performing Organization Address City/[facility] Co de Phone Number [address] [place] [address], [place] * Light Blue Top (12/06/2024 5:58 AM EDT) Extra Tube Auto Resulted 12/06/2024 7:01 AM EDT [facility] Blood Venous blood / Unknown 12/06/2024 5:58 AM EDT 12/06/2024 6:09 AM EDT us Michael Steiner DO LAB BLOOD ORDERABLES Final Resul t [facility] [address] [place] [address], [place] * (ABNORMAL) Basic Metabolic Panel (12/06/2024 5:58 AM EDT) SODIUM 143 134 - 146 mmol/L 12/06/2024 6:40 AM EDT [facility] POTASSIUM 4.3 3.5 - 5.0 mmol/L 12/06/2024 6:40 AM EDT [facility] CHLORIDE 103 98 - 109 mmol/L 12/06/2024 6:40 AM EDT [facility] CARBON DIOXIDE 34(H) 22 - 32 mmol/L 12/06/2024 6:40 AM EDT [facility] ANION GAP 6 5 - 15 mmol/L 12/06/2024 6:40 AM EDT [facility] BLOOD UREA NITROGEN 24 5 - 27 mg/dL 12/06/2024 6:40 AM EDT [facility] CREATININE 0.84 0.40 - 1.00 mg/dL 12/06/2024 6:40 AM EDT [facility] Comment:METHOD TRACEABLE TO IDMS STANDARD GLUCOSE 126(H) 65 - 99 mg/dL 12/06/2024 6:40 AM EDT [facility] CALCIUM 9.2 8.5 - 10.5 mg/dL 12/06/2024 6:40 AM EDT [facility] EGFR Non-Race Dependent 79 >=60 ml/min/1.7 3sq.m 12/06/2024 6:40 AM EDT [facility] Comment: eGFR not reported due to non-numeric value for Creatinine. Reported eGFR is based on the CKD-EPI 2020 equation that does not use a race coefficient. Blood Venous blood / Unknown Venipuncture / Unknown 12/06/2024 5:58 AM EDT 12/06/2024 6:06 AM EDT us Michael Steiner DO LAB BLOOD ORDERABLES Final Resul t Performing Organization Address City/[facility]/ZIP Co de Phone Number [address] [place] [address], [place] * Phosphorus (12/06/2024 5:58 AM EDT) PHOSPHORUS 3.1 2.4 - 4.9 mg/dL 12/06/2024 7:25 AM EDT [facility] Blood Venous blood / Unknown Venipuncture / Unknown 12/06/2024 5:58 AM EDT 12/06/2024 6:06 AM EDT us Michael Steiner DO LAB BLOOD ORDERABLES Final Resul t Performing Organization Address [facility] Co de Phone Number [address] [place] [address], [place] * Lower resp/sputum culture inc gram stain: Patient acquired (12/05/2024 10:28 PM EDT) CULTURE RESULTS CULTURE CANCELLED. SPECIMEN DOES NOT MEET CRITERIA FOR CULTURING. PLEASE REORDER AND RESUBMIT. 12/07/2024 2:36 PM EDT [facility] GRAM STAIN >25 Squamous Epithelial Cells/LPF with Mixed Bacterial Types Seen. Regarded as Saliva not Sputum 12/07/2024 2:36 PM EDT [facility] Sputum Bronchial structure / Unknown 12/05/2024 10:28 PM EDT 12/05/2024 10:33 PM EDT us Michael Steiner DO MICROBIOLOGY - GENERAL ORDERABLE S Final Result Performing Organization Address City/[facility]/ZIP Co de Phone Number [facility] [address] [place] [address], [place] [phone] * (ABNORMAL) Bedside Glucose *Place/Obtain serum glucose if >500 per glucometer. (12/05/2024 6:04 PM EDT) Bedside Glucose (POC) 147(H) 65 - 99 mg/dL 12/05/2024 6:18 PM EDT [facility] arterial/capilla ry 12/05/2024 6:04 PM EDT 12/05/2024 6:18 PM EDT Michael Steiner DO POINT OF CARE TEST ORDERABLES Fi nal Result Performing Organization Address City/[facility]/ZIP Co de Phone Number [facility] [address] [place] [address] [place] [address], [place] * (ABNORMAL) Bedside Glucose *Place/Obtain serum glucose if >500 per glucometer. (12/05/2024 11:23AM EDT) Bedside Glucose (POC) 144(H) 65 - 99 mg/dL 12/05/2024 11:29 AM EDT [facility] arterial/capilla ry 12/05/2024 11:23 AM EDT 12/05/2024 11:29 AM EDT Michael Steiner DO POINT OF CARE TEST ORDERABLES Fi nal Result Performing Organization Address City/[facility]/ZIP Co de Phone Number [facility] [address] [place] [address] [place] [address], [place] * (ABNORMAL) Blood gas, venous (12/05/2024 9:21 AM EDT) Sample type VENOUS 12/05/2024 9:25 AM EDT [facility] pH, Venous 7.340 7.320 - 7.420 12/05/2024 9:25 AM EDT [facility] pCO2, Venous 64.3(H) 35.0 - 50.0 mmHg 12/05/2024 9:25 AM EDT [facility] pO2, Venous 50 30 - 50 mmHg 12/05/2024 9:25 AM EDT [facility] Base, Excess 7.0(H) 0.0 - 2.0 mmol/L 12/05/2024 9:25 AM EDT [facility] HCO3, Venous 34.7(H) 20.0 - 24.0 mmol/L 12/05/2024 9:25 AM EDT [facility] %O2 Saturation, Venous 81.0 % 12/05/2024 9:25 AM EDT [facility] Joe's test N/A 12/05/2024 9:25 AM EDT [facility] SPO2 92 % 12/05/2024 9:25 AM EDT [facility] Sample site N/A 12/05/2024 9:25 AM EDT [facility] Source Of Oxygen [place] 12/05/2024 9:25 AM EDT [facility] venous Venous blood / Unknown 12/05/2024 9:21 AM EDT 12/05/2024 9:25 AM EDT us Mcihael Steiner DO LAB BLOOD ORDERABLES Final Resul t [address] [address], [place] * Light Blue Top (12/05/2024 4:28 AM EDT) Extra Tube Auto Resulted 12/05/2024 6:03 AM EDT [facility] Blood Venous blood / Unknown 12/05/2024 4:28 AM EDT 12/05/2024 4:52 AM EDT Michael Steiner DO LAB BLOOD ORDERABLES Final Resul t [address] [address], [place] * (ABNORMAL) Basic Metabolic Panel (12/05/2024 4:28 AM EDT) SODIUM 137 134 - 146 mmol/L 12/05/2024 5:11 AM EDT [facility] POTASSIUM 4.0 3.5 - 5.0 mmol/L 12/05/2024 5:11 AM EDT [facility] CHLORIDE 96(L) 98 - 109 mmol/L 12/05/2024 5:11 AM EDT [facility] CARBON DIOXIDE 34(H) 22 - 32 mmol/L 12/05/2024 5:11 AM EDT [facility] ANION GAP 7 5 - 15 mmol/L 12/05/2024 5:11 AM EDT [facility] BLOOD UREA NITROGEN 19 5 - 27 mg/dL 12/05/2024 5:11 AM EDT [facility] CREATININE 0.91 0.40 - 1.00 mg/dL 12/05/2024 5:11 AM EDT [facility] Comment:METHOD TRACEABLE TO IDSD STANDARD GLUCOSE 140(H) 65 - 99 mg/dL 12/05/2024 5:11 AM EDT [facility] CALCIUM 8.8 8.5 - 10.5 mg/dL 12/05/2024 5:11 AM EDT [facility] EGFR Non-Race Dependent 71 >=60 ml/min/1.7 3sq.m 12/05/2024 5:11 AM EDT [facility] Comment: eGFR not reported due to non-numeric value for Creatinine. Reported eGFR is based on the CKD-EPI 2020 equation that does not use a race coefficient. Blood Venous blood / Unknown Venipuncture / Unknown 12/05/2024 4:28 AM EDT 12/05/2024 4:51 AM EDT us Michael Steiner DO LAB BLOOD ORDERABLES Final Resul t [facility] [address] [place] [address], [place] * (ABNORMAL) Phosphorus (12/05/2024 4:28 AM EDT) PHOSPHORUS 2.3(L) 2.4 - 4.9 mg/dL 12/05/2024 7:24 AM EDT [facility] Blood Venous blood / Unknown Venipuncture / Unknown 12/05/2024 4:28 AM EDT 12/05/2024 4:51 AM EDT us Michael Steiner DO LAB BLOOD ORDERABLES Final Resul t [facility] [address] [facility] [place] [address], [place] * (ABNORMAL) CBC auto differential (12/05/2024 4:28 AM EDT) WBC 9.1 4 - 11 x10E9/L 12/05/2024 5:59 AM EDT [facility] RBC Count 4.24 3.8 - 5.2 X10E12/L 12/05/2024 5:59 AM EDT [facility] Hemoglobin 8.2(L) 11.7 - 15.5 g/dL 12/05/2024 5:59 AM EDT [facility] Hematocrit 27.7(L) 35 - 47 % 12/05/2024 5:59 AM EDT [facility] MCV 65(L) 80 - 100 fL 12/05/2024 5:59 AM EDT [facility] MCH 19.4(L) 27 - 34 pg 12/05/2024 5:59 AM EDT [facility] MCHC 29.7(L) 32 - 36 g/dL 12/05/2024 5:59 AM EDT [facility] RDW 19.6(H) 11.5 - 15 % 12/05/2024 5:59 AM EDT [facility] Platelet Count 238 150 - 450 X10E9/L 12/05/2024 5:59 AM EDT [facility] MPV 7.3 7 - 12 fL 12/05/2024 5:59 AM EDT [facility] Neutrophils % 92.2 % 12/05/2024 5:59 AM EDT [facility] Comment:This is an appended report. These results have been appended to a previously preliminary verified report. Lymphocytes % 5.3 % 12/05/2024 5:59 AM [facility] Comment:This is an appended report. These results have been appended to a previously preliminary verified report. Monocytes % 2.3 % 12/05/2024 5:59 AM EDT [facility] Comment:This is an appended report. These results have been appended to a previously preliminary verified report. Eosinophils % 0.0 % 12/05/2024 5:59 AM [facility] Comment:This is an appended report. These results have been appended to a previously preliminary verified report. Basophils % 0.2 % 12/05/2024 5:59 AM T [facility] Comment:This is an appended report. These results have been appended to a previously preliminary verified report. Neutrophils Absolute (A) 8.3(H) 1.5 - 6.6 10*3/uL 12/05/2024 5:59 AM [facility] Comment:This is an appended report. These results have been appended to a previously preliminary verified report. Lymphocytes Absolute 0.5(L) 1.0 - 3.5 10*3/uL 12/05/2024 5:59 AM EDT [facility] Comment:This is an appended report. These results have been appended to a previously preliminary verified report. Monocytes Absolute 0.2 0.0 - 0.9 10*3/uL 12/05/2024 5:59 AM T [facility] Comment:This is an appended report. These results have been appended to a previously preliminary verified report. Eosinophils Absolute 0.0 0.0 - 0.4 10*3/uL 12/05/2024 5:59 AM T [facility] Comment:This is an appended report. These results have been appended to a previously preliminary verified report. Basophils Absolute 0.0 0.0 - 0.2 10*3/uL 12/05/2024 5:59 AM EDT [facility] Comment:This is an appended report. These results have been appended to a previously preliminary verified report. Anisocytosis 2+ 12/05/2024 5:59 AM EDT [facility] Comment:This is an appended report. These results have been appended to a previously preliminary verified report. Microcytes 2+ 12/05/2024 5:59 AM EDT [facility] Comment:This is an appended report. These results have been appended to a previously preliminary verified report. Stomatocytes 3+ 12/05/2024 5:59 AM EDT [facility] Comment:This is an appended report. These results have been appended to a previously preliminary verified report. RBC Morphology abnormal 12/05/2024 5:59 AM EDT [facility] Comment:This is an appended report. These results have been appended to a previously preliminary verified report. Differential Type AUTOMATED DIFFERENTIAL 12/05/2024 5:59 AM EDT [facility] Comment:This is an appended report. These results have been appended to a previously preliminary verified report. Blood Venous blood / Unknown Venipuncture / Unknown 12/05/2024 4:28 AM EDT 12/05/2024 4:51 AM EDT us Michael Steiner DO LAB BLOOD ORDERABLES Final Resul t [facility] [address] [place] [address], [place] * (ABNORMAL) Bedside Glucose *Place/Obtain serum glucose if >500 per glucometer. (12/04/2024 8:45 PM EDT) Bedside Glucose (POC) 125(H) 65 - 99 mg/dL 12/04/2024 11:45 PM EDT [facility] arterial/capilla ry 12/04/2024 8:45 PM EDT 12/04/2024 11:44 PM EDT us Michael Steiner DO POINT OF CARE TEST ORDERABLES Fi nal Result Performing Organization Address [facility] Co de Phone Number [address] [place] [address], [place] * (ABNORMAL) Bedside Glucose *Place/Obtain serum glucose if >500 per glucometer. (12/04/2024 5:19 PM EDT) Bedside Glucose (POC) 165(H) 65 - 99 mg/dL 12/04/2024 11:44 PM EDT [facility] arterial/capilla ry 12/04/2024 5:19 PM EDT 12/04/2024 11:44 PM EDT Michael Steiner DO POINT OF CARE TEST ORDERABLES Fi nal Result Performing Organization Address [facility] Co de Phone Number [address] [place] [address], [place] * (ABNORMAL) Bedside Glucose *Place/Obtain serum glucose if >500 per glucometer. (12/04/2024 4:33 PM EDT) Bedside Glucose (POC) 196(H) 65 - 99 mg/dL 12/04/2024 11:44 PM EDT [facility] arterial/capilla ry 12/04/2024 4:33 PM EDT 12/04/2024 11:44 PM EDT us Michael Steiner DO POINT OF CARE TEST ORDERABLES Fi nal Result Performing Organization Address City/[facility] Co de Phone Number [address] [place] [address], [place] * (ABNORMAL) Blood gas, venous (12/04/2024 1:28 PM EDT) Sample type VENOUS 12/04/2024 1:32 PM EDT [facility] pH, Venous 7.263(L) 7.320 - 7.420 12/04/2024 1:32 PM EDT [facility] pCO2, Venous 80.0(H) 35.0 - 50.0 mmHg 12/04/2024 1:32 PM EDT [facility] pO2, Venous 27(L) 30 - 50 mmHg 12/04/2024 1:32 PM EDT [facility] Base, Excess 7.0(H) 0.0 - 2.0 mmol/L 12/04/2024 1:32 PM EDT [facility] HCO3, Venous 36.1(H) 20.0 - 24.0 mmol/L 12/04/2024 1:32 PM EDT [facility] %O2 Saturation, Venous 38.0 % 12/04/2024 1:32 PM EDT [facility] Joe's test N/A 12/04/2024 1:32 PM EDT [facility] SPO2 94 % 12/04/2024 1:32 PM EDT [facility] Sample site N/A 12/04/2024 1:32 PM EDT [facility] Insp. O2 conc. 50 % 12/04/2024 1:32 PM EDT [facility] Source Of Oxygen NC 12/04/2024 1:32 PM EDT [facility] venous Venous blood / Unknown 12/04/2024 1:28 PM EDT 12/04/2024 1:32 PM EDT us Michael Steiner DO LAB BLOOD ORDERABLES Final Resul t [facility] [address] [place] [address], [place] * (ABNORMAL) Bedside Glucose *Place/Obtain serum glucose if >500 per glucometer. (12/04/2024 11:55AM EDT) Bedside Glucose (POC) 167(H) 65 - 99 mg/dL 12/04/2024 12:01 PM EDT [facility] arterial/capilla ry 12/04/2024 11:55 AM EDT 12/04/2024 12:01 PM EDT us Michael Steiner DO POINT OF CARE TEST ORDERABLES Fi nal Result Performing Organization Address City/[facility]/ZIP Co de Phone Number [facility] [address] [place] [address] [place] [address], [place] * (ABNORMAL) Troponin I, High Sensitivity 1 Hour (12/04/2024 8:23 AM EDT) Pathologist [facility] [place] TROPONIN I, HIGH SENSITIVITY 17(H) <16 ng/L 12/04/2024 9:07 AM EDT [facility] Blood Venous blood / Unknown Venipuncture / Unknown 12/04/2024 8:23 AM EDT 12/04/2024 8:35 AM EDT Narrative [facility] - 12/04/2024 9:07 AM EDT Elevations of hs-Troponin may be due to causes other than myocardial ischemia. Recommend serial hs-Troponin testing be performed. For the initial evaluation and management of chest pain patients, refer to the algorithms linked below. Emergency Patient: [email or web address] Inpatient: [email or web address] us Patrick Bal DO LAB BLOOD ORDERABLES Final R esult Performing Organization Address City/[facility]/ZIP Co de Phone Number [facility] [address] [place] [address] [place] [address], [place] * Critical Care (12/04/2024 8:15 AM EDT) Narrative Patrick Bal DO - 12/04/2024 8:15 AM EDT Patrick Bal DO 12/05/2024 3:17 AM Critical Care Performed by: Patrick aBl DO Authorized by: Patrick Bal DO Critical care provider statement: Critical care time (minutes): 35 Critical care time was exclusive of: Separately billable procedures and treating other patients Critical care was necessary to treat or prevent imminent or life-threatening deterioration of the following conditions: Respiratory failure Critical care was time spent personally by me on the following activities: Blood draw for specimens, development of treatment plan with patient or surrogate, discussions with primary provider, evaluation of patient's response to treatment, examination of patient, ventilator management, review of old charts, re-evaluation of patient's condition, pulse oximetry, ordering and review of radiographic studies, ordering and review of laboratory studies, ordering and performing treatments and interventions and obtaining history from patient or surrogate Patrick Bal DO PROCEDURE/MINOR SURGICAL ORD ERABLES Final Result * (ABNORMAL) Blood gas, venous (12/04/2024 7:16 AM EDT) Sample type VENOUS 12/04/2024 7:20 AM EDT [facility] pH, Venous 7.187(L) 7.320 - 7.420 12/04/2024 7:20 AM EDT [facility] pCO2, Venous 100.3(H) 35.0 - 50.0 mmHg 12/04/2024 7:20 AM EDT [facility] pO2, Venous 29(L) 30 - 50 mmHg 12/04/2024 7:20 AM EDT [facility] Base, Excess 6.0(H) 0.0 - 2.0 mmol/L 12/04/2024 7:20 AM EDT [facility] HCO3, Venous 38.1(H) 20.0 - 24.0 mmol/L 12/04/2024 7:20 AM EDT [facility] %O2 Saturation, Venous 38.0 % 12/04/2024 7:20 AM EDT [facility] Joe's test N/A 12/04/2024 7:20 AM EDT [facility] SPO2 100 % 12/04/2024 7:20 AM EDT [facility] Sample site N/A 12/04/2024 7:20 AM EDT [facility] Insp. O2 conc. 40 % 12/04/2024 7:20 AM EDT [facility] Source Of Oxygen NPPV 12/04/2024 7:20 AM EDT [facility] venous Venous blood / Unknown 12/04/2024 7:16 AM EDT 12/04/2024 7:20 AM EDT us Patrick Bal DO LAB BLOOD ORDERABLES Final R esult Performing Organization Address City/[facility]/ZIP Co de Phone Number [address] [place] [address], [place] * Light Blue Top (12/04/2024 7:15 AM EDT) Extra Tube Auto Resulted 12/04/2024 9:01 AM EDT [facility] Blood Venous blood / Unknown Venipuncture / Unknown 12/04/2024 7:15 AM EDT 12/04/2024 7:18 AM EDT us Patrick Bal DO LAB BLOOD ORDERABLES Final R esult [address] [place] [address], [place] * (ABNORMAL) Procalcitonin (12/04/2024 7:14 AM EDT) PROCALCITONIN 0.13(H) <0.05 ng/mL 12/04/2024 1:09 PM EDT [facility] Blood Venous blood / Unknown Venipuncture / Unknown 12/04/2024 7:14 AM EDT 12/04/2024 7:18 AM EDT Narrative [facility] - 12/04/2024 1:09 PM EDT <0.50 ng/mL - Low risk of severe sepsis and/or septic shock. <2.00 ng/mL - Recommend retesting within 6-24 hours. >2.00 ng/mL - High risk of sepsis and/or septic shock. us Michael Steiner DO LAB BLOOD ORDERABLES Final Resul t Performing Organization Address [facility] de Phone Number [address] [place] [address], [place] * (ABNORMAL) Phosphorus (12/04/2024 7:14 AM EDT) PHOSPHORUS 6.1(H) 2.4 - 4.9 mg/dL 12/04/2024 10:03 AM EDT [facility] Blood Venous blood / Unknown Venipuncture / Unknown 12/04/2024 7:14 AM EDT 12/04/2024 7:18 AM EDT us Michael Steiner DO LAB BLOOD ORDERABLES Final Resul t Performing Organization Address [facility] de Phone Number [address] [place] [address], [place] * (ABNORMAL) Troponin I, High Sensitivity 0 Hour (12/04/2024 7:14 AM EDT) TROPONIN I, HIGH SENSITIVITY 17(H) <16 ng/L 12/04/2024 7:50 AM EDT [facility] Blood Venous blood / Unknown Venipuncture / Unknown 12/04/2024 7:14 AM EDT 12/04/2024 7:18 AM EDT us Patrick Bal DO LAB BLOOD ORDERABLES Final R esult Performing Organization Address [facility] Co de Phone Number [address] [place] [address], [place] * (ABNORMAL) CBC auto differential (12/04/2024 7:14 AM EDT) WBC 13.5(H) 4 - 11 x10E9/L 12/04/2024 8:36 AM EDT [facility] RBC Count 5.13 3.8 - 5.2 X10E12/L 12/04/2024 8:36 AM EDT [facility] Hemoglobin 9.8(L) 11.7 - 15.5 g/dL 12/04/2024 8:36 AM EDT [facility] Hematocrit 34.4(L) 35 - 47 % 12/04/2024 8:36 AM EDT [facility] MCV 67(L) 80 - 100 fL 12/04/2024 8:36 AM EDT [facility] MCH 19.1(L) 27 - 34 pg 12/04/2024 8:36 AM EDT [facility] MCHC 28.5(L) 32 - 36 g/dL 12/04/2024 8:36 AM EDT [facility] RDW 20.2(H) 11.5 - 15 % 12/04/2024 8:36 AM EDT [facility] Platelet Count 354 150 - 450 X10E9/L 12/04/2024 8:36 AM EDT [facility] MPV 6.9(L) 7 - 12 fL 12/04/2024 8:36 AM EDT [facility] Neutrophils % 89.4 % 12/04/2024 8:36 AM EDT [facility] Comment:This is an appended report. These results have been appended to a previously preliminary verified report. Lymphocytes % 3.7 % 12/04/2024 8:36 AM EDT [facility] Comment:This is an appended report. These results have been appended to a previously preliminary verified report. Monocytes % 6.7 % 12/04/2024 8:36 AM EDT [facility] Comment:This is an appended report. These results have been appended to a previously preliminary verified report. Eosinophils % 0.0 % 12/04/2024 8:36 AM EDT [facility] Comment:This is an appended report. These results have been appended to a previously preliminary verified report. Basophils % 0.2 % 12/04/2024 8:36 AM T [facility] Comment:This is an appended report. These results have been appended to a previously preliminary verified report. Neutrophils Absolute (A) 12.0(H) 1.5 - 6.6 10*3/uL 12/04/2024 8:36 AM EDT [facility] Comment:This is an appended report. These results have been appended to a previously preliminary verified report. Lymphocytes Absolute 0.5(L) 1.0 - 3.5 10*3/uL 12/04/2024 8:36 AM T [facility] Comment:This is an appended report. These results have been appended to a previously preliminary verified report. Monocytes Absolute 0.9 0.0 - 0.9 10*3/uL 12/04/2024 8:36 AM T [facility] Comment:This is an appended report. These results have been appended to a previously preliminary verified report. Eosinophils Absolute 0.0 0.0 - 0.4 10*3/uL 12/04/2024 8:36 AM T [facility] Comment:This is an appended report. These results have been appended to a previously preliminary verified report. Basophils Absolute 0.0 0.0 - 0.2 10*3/uL 12/04/2024 8:36 AM EDT [facility] Comment:This is an appended report. These results have been appended to a previously preliminary verified report. Polychromasia 1+ 12/04/2024 8:36 AM [facility] Comment:This is an appended report. These results have been appended to a previously preliminary verified report. Elliptocytes 1+ 12/04/2024 8:36 AM [facility] Comment:This is an appended report. These results have been appended to a previously preliminary verified report. Stomatocytes 1+ 12/04/2024 8:36 AM EDT [facility] Comment:This is an appended report. These results have been appended to a previously preliminary verified report. Basophilic Stippling 1+ 12/04/2024 8:36 AM EDT [facility] Comment:This is an appended report. These results have been appended to a previously preliminary verified report. Differential Type AUTOMATED DIFFERENTIAL 12/04/2024 8:36 AM EDT [facility] Comment:This is an appended report. These results have been appended to a previously preliminary verified report. Blood Venous blood / Unknown Venipuncture / Unknown 12/04/2024 7:14 AM EDT 12/04/2024 7:18 AM EDT us Patrick E Valeriano DO LAB BLOOD ORDERABLES Final R esult Performing Organization Address [facility] Co de Phone Number [address] [place] [address], [place] * (ABNORMAL) B-type natriuretic peptide (12/04/2024 7:14 AM EDT) Pathologist [facility] [place] BNP 259(H) <=100 pg/mL 12/04/2024 7:46 AM EDT [facility] Blood Venous blood / Unknown Venipuncture / Unknown 12/04/2024 7:14 AM EDT 12/04/2024 7:18 AM EDT us Patrick E Valeriano DO LAB BLOOD ORDERABLES Final R esult Performing Organization Address [facility] de Phone Number [address] [address], [place] * Lactate w/ Reflex (12/04/2024 7:14 AM EDT) LACTATE W/REFLEX 1.0 0.4 - 2.0 mmol/L 12/04/2024 7:37 AM EDT [facility] Blood Venous blood / Unknown Venipuncture / Unknown 12/04/2024 7:14 AM EDT 12/04/2024 7:17 AM EDT Narrative [facility] - 12/04/2024 7:37 AM EDT Result did not trigger repeat Lactate, re-order if needed. us Patrick Bal DO LAB BLOOD ORDERABLES Final R esult [facility] [address] [place] [address], [place] * (ABNORMAL) Comprehensive metabolic panel (12/04/2024 7:14 AM EDT) SODIUM 141 134 - 146 mmol/L 12/04/2024 7:39 AM EDT [facility] POTASSIUM 4.2 3.5 - 5.0 mmol/L 12/04/2024 7:39 AM EDT [facility] CHLORIDE 96(L) 98 - 109 mmol/L 12/04/2024 7:39 AM EDT [facility] CARBON DIOXIDE 36(H) 22 - 32 mmol/L 12/04/2024 7:39 AM EDT [facility] ANION GAP 9 5 - 15 mmol/L 12/04/2024 7:39 AM EDT [facility] BLOOD UREA NITROGEN 21 5 - 27 mg/dL 12/04/2024 7:39 AM EDT [facility] CREATININE 1.45(H) 0.40 - 1.00 mg/dL 12/04/2024 7:39 AM EDT [facility] Comment:METHOD TRACEABLE TO IDMS STANDARD GLUCOSE 133(H) 65 - 99 mg/dL 12/04/2024 7:39 AM EDT [facility] CALCIUM 9.0 8.5 - 10.5 mg/dL 12/04/2024 7:39 AM EDT [facility] TOTAL PROTEIN 7.8 6.0 - 8.0 g/dL 12/04/2024 7:39 AM EDT [facility] ALBUMIN 3.7 3.2 - 5.3 g/dL 12/04/2024 7:39 AM EDT [facility] ALKALINE PHOSPHATASE 138(H) 39 - 130 U/L 12/04/2024 7:39 AM EDT [facility] AST 38 <=41 U/L 12/04/2024 7:39 AM EDT [facility] ALT 36(H) <=31 U/L 12/04/2024 7:39 AM EDT [facility] BILIRUBIN,TOTAL 0.3 0.3 - 1.2 mg/dL 12/04/2024 7:39 AM EDT [facility] EGFR Non-Race Dependent 41(L) >=60 ml/min/1.7 3sq.m 12/04/2024 7:39 AM EDT [facility] Comment: eGFR not reported due to non-numeric value for Creatinine. Reported eGFR is based on the CKD-EPI 2020 equation that does not use a race coefficient. Blood Venous blood / Unknown Venipuncture / Unknown 12/04/2024 7:14 AM EDT 12/04/2024 7:18 AM EDT us Patrick Bal DO LAB BLOOD ORDERABLES Final R esult [facility] [address] [facility] [place] [address], * X-ray chest 1 view (12/04/2024 7:11 AM EDT) Anatomical Region Laterality Modality Body, Chest N/A Computed Radiogr aphy 12/04/2024 7:13 AM EDT Narrative 12/04/2024 7:13 AM EDT Single view chest History:SOB Difficulty breathing, shortness of breath Comparison: 12/03/2024 Findings: Single portable view of the chest. Right lower lung atelectasis versus pneumonia, stable. Stable cardiac mediastinal silhouette. Prior median sternotomy. Impression: No significant interval change. Finalized by Victor Hugo Kim MD on 12/04/2024 7:13 AM Procedure Note Victor Hugo Kim MD - 12/04/2024 Single view chest History:SOB Difficulty breathing, shortness of breath Comparison: 12/03/2024 Findings: Single portable view of the chest. Right lower lung atelectasis versuspneumonia, stable. Stable cardiac mediastinal silhouette. Prior mediansternotomy. Impression: No significant interval change. Finalized by Victor Hugo Kim MD on 12/04/2024 7:13 AM us Patrick Bal DO IMG DIAGNOSTIC IMAGING ORDER MARCELINA Final Result * ECG 12 lead (12/04/2024 6:48 AM EDT) 12/04/2024 6:48 AM EDT Narrative [facility] - 12/05/2024 3:17 AM EDT us Patrick Bal DO ECG ORDERABLES Final Result [facility] documented in this encounter Visit Diagnoses Diagnosis Acute on chronic respiratory failure with hypoxia and hypercapnia (CMS-HCC)- Primary Acute on chronic respiratory failure with hypoxia and hypercapnia (CMS-HCC) Pneumonia due to infectious organism, unspecified laterality, unspecified part of lung Peripheral polyneuropathy Pulmonary hypertension (CMS-HCC) Other chronic pulmonary heart diseases Chronic respiratory failure with hypoxia and hypercapnia (CMS-HCC) Stage 3a chronic kidney disease (CMS-HCC) Stage 3a chronic kidney disease (CMS-HCC) Pulmonary hypertension (CMS-HCC) Other chronic pulmonary heart diseases Bipolar 2 disorder, major depressive episode (CMS-HCC) Microcytic anemia- Primary Unspecified iron deficiency anemia documented in this encounter Admitting Diagnoses Diagnosis Acute on chronic respiratory failure with hypoxia and hypercapnia (CMS-HCC) documented in this encounter Administered Medications Inactive Administered Medications - up to 3 most recent administrations Medication Order MAR Action Action Date Dose Rate Site acetaminophen (TYLENOL) tablet 650 mg 650 mg, oral, Every 4 hours PRN, mild pain - pain scale 1-3, moderate pain - pain scale 4-6, temperature greater than 38 C, Starting on 8/10/25 at 0931 Given 12/06/2024 9:04 AM EDT 650 mg Given 12/06/2024 5:29 AM EDT 650 mg Given 12/05/2024 11:10 PM EDT 650 mg albuterol (PROVENTIL,VENTOLIN) nebulizer solution 0.63 mg 0.63 mg, nebulization, Every 6 hours PRN, wheezing, Starting on Thu12/04/24 at 0931, Implement INPATIENT/ED Bronchodilator Clinical Practice Guidelines? No Given 12/06/2024 8:55 AM EDT 0.63 mg Given 12/05/2024 2:47 AM EDT 0.63 mg Given 12/04/2024 7:28 PM EDT 0.63 mg ARIPiprazole (ABILIFY) tablet 15 mg 15 mg, oral, Daily, First dose on 12/04/24 at 0945, Look-alike/sound-alike medication - verify indication for use. Given 12/06/2024 9:00 AM EDT 15 mg Given 12/05/2024 8:03 AM EDT 15 mg Given 12/04/2024 12:58 PM EDT 15 mg atorvastatin (LIPITOR) tablet 80 mg 80 mg, oral, Daily, First dose on 12/04/24 at 0945, Look-alike/sound-alike medication - verify indication for use. Given 12/06/2024 9:00 AM EDT 80 mg Given 12/05/2024 8:03 AM EDT 80 mg Given 12/04/2024 12:58 PM EDT 80 mg calcium acetate(phosphat bind) (PHOSLO) capsule 667 mg 667 mg, oral, 3 times daily with meals, First dose on 12/04/24 at 1330, For 2 doses, If administering capsules via feeding tube, open capsule and dilute powder in 15 mL of water over 1 minute. After administration via feeding tube, flush tube with an additional 20 mL of water. Given 12/04/2024 5:54 PM EDT 667 mg Given 12/04/2024 2:12 PM EDT 667 mg cefTRIAXone (ROCEPHIN) IVPB 1000 mg/50 mL in iso-osmotic dextrose (20 mg/mL premix) 1,000 mg, intravenous, at 100 mL/hr, Administer over 30 Minutes, Every 24 hours, First dose on Thu12/04/24 at 1300, Look-alike/sound-alike medication - verify indication for use. Do not co-administer with calcium-containing solutions such as Lactated Ringers., Indication: Community-acquired pneumonia New Bag 12/05/2024 12:44 PM EDT 1,000 mg 1 00 mL/hr New Bag 12/04/2024 1:22 PM EDT 1,000 mg 100 mL/hr clonazePAM (KlonoPIN) tablet 0.5 mg 0.5 mg, oral, 2 times daily, First dose on Thu12/05/24 at 1115, Look-alike/sound-alike medication - verify indication for use. Given 12/06/2024 9:00 AM EDT 0.5 mg Given 12/05/2024 10:00 PM EDT 0.5 mg Given 12/05/2024 12:39 PM EDT 0.5 mg cyanocobalamin tablet 1,000 mcg 1,000 mcg, oral, Daily, First dose on Thu12/05/24 at 1115 Given 12/06/2024 9:00 AM EDT 1,000 mcg Given 12/05/2024 12:40 PM EDT 1,000 mcg ezetimibe (ZETIA) tablet 10 mg 10 mg, oral, Daily, First dose on Thu12/04/24 at 0945, Look-alike/sound-alike medication - verify indication for use. Given 12/06/2024 9:00 AM EDT 10 mg Given 12/05/2024 8:03 AM EDT 10 mg Given 12/04/2024 12:57 PM EDT 10 mg guaiFENesin (MUCINEX) tablet 600 mg 600 mg, oral, Every 12 hours scheduled, First dose on Thu12/05/24 at 1115, Look-alike/sound-alike medication - verify indication for use. Do not crush or chew. Given 12/06/2024 9:00 AM EDT 60 0 mg Given 12/05/2024 10:00 PM EDT 600 mg Given 12/05/2024 12:40 PM EDT 600 mg heparin (porcine) injection 5,000 Units 5,000 Units, subcutaneous, Every 8 hours scheduled, First dose on Thu12/05/24 at 0600, Notify prescriber if INR greater than 1.9, hemoglobin less than 10 mg/dL, aPTT greater than 40 seconds, and/or platelet count less than 100,000/mm Look-alike/sound-alike medication - verify indication for use. Observe for bleeding. Given 12/06/2024 5:29 AM EDT 5,000 Units Abdominal Tissue Given 12/05/2024 10:00 PM EDT 5,000 Units Abdominal Tissue Given 12/05/2024 12:49 PM EDT 5,000 Units Abdominal Tissue insulin lispro (HumaLOG) injection 1-5 Units 1-5 Units, subcutaneous, 3 times daily with meals, First dose on 12/04/24 at 0945, Daytime hyperglycemia dosing. For blood glucose 151-200 mg/dL, give 1 unit. For blood glucose 201-250 mg/dL, give 2 units. For blood glucose 251-300 mg/dL, give 3 units. For blood glucose 301-350 mg/dL, give 4 units. For blood glucose 351-400 mg/dL, give 5 units. Give even if NPO or meals skipped. Do NOT give more often than every 4 hours when NPO. Notify prescriber if blood glucose greater than 400 mg/dL. Look-alike/sound-alike medication - verify indication for use. Prime with 2 units of insulin prior to administration. Prandial/supplemental Insulin. Pre-filled pens stable 28 days at room temperature. Insulin lispro should be administered within 15 minutes before or immediately after a meal. Given 12/04/2024 5:50 PM EDT 1 Units Right Arm Given 12/04/2024 1:29 PM EDT 1 Units Ri ght Arm ipratropium-albuteroL (DUONEB) 0.5 mg-3 mg(2.5 mg base)/3 mL nebulizer solution 3 mL 3 mL, nebulization, Once, On 12/04/24 at 0655, For 1 dose, Implement INPATIENT/ED Bronchodilator Clinical Practice Guidelines? Yes Given 12/04/2024 7:02 AM EDT 3 mL lamoTRIgine (LaMICtal) tablet 150 mg 150 mg, oral, Daily, First dose on 12/04/24 at 0945, Look-alike/sound-alike medication - verify indication for use. Given 12/06/2024 9:00 AM EDT 150 mg Given 12/05/2024 8:04 AM EDT 150 mg Given 12/04/2024 12:58 PM EDT 150 mg levoFLOXacin (LEVAQUIN) IVPB 750 mg/150 mL in dextrose 5% (5 mg/mL premix) 750 mg, intravenous, at 100 mL/hr, Administer over 90 Minutes, Once, On 12/04/24 at 0730, For 1 dose, Avoid administration through an intravenous line with a solution containing multivalent cations (eg, magnesium, calcium). Look-alike/sound-alike medication - verify indication for use. May alter blood glucose or insulin requirements., Specific Use Criteria: Community-acquired pneumonia, beta-lactam allergy, Fluoroquinolones contain FDA Black Box warnings. Due to safety concerns, avoid use in acute bacterial sinusitis, acute bacterial exacerbation of chronic bronchitis, or acute uncomplicated cystitis if possible. Use alternative treatment if available. I acknowledge the Black Box warnings of fluoroquinolones. New Bag 12/04/2024 7:36 AM EDT 750 mg 100 mL/hr methylPREDNISolone sod suc(PF) (Solu-MEDROL) injection 125 mg 125 mg, intravenous, Once, On 12/04/24 at 0655, For 1 dose, May alter blood glucose or insulin requirements. Look-alike/sound-alike medication - verify indication for use. Given 12/04/2024 6:55 AM EDT 125 mg methylPREDNISolone sod suc(PF) (Solu-MEDROL) injection 40 mg 40 mg, intravenous, Every 12 hours scheduled, First dose on Thu12/04/24 at 2100, May alter blood glucose or insulin requirements. Look-alike/sound-alike medication - verify indication for use. Given 12/06/2024 9:00 AM EDT 40 mg Given 12/05/2024 10:00 PM EDT 40 mg Given 12/05/2024 8:04 AM EDT 40 mg metoprolol succinate XL (TOPROL XL) 24 hr tablet 25 mg 25 mg, oral, Nightly, First dose on 12/04/24 at 2200, Look-alike/sound-alike medication - verify indication for use. Do not crush or chew. Given 12/05/2024 10:00 PM EDT 25 mg Given 12/04/2024 9:58 PM EDT 25 mg pantoprazole (PROTONIX) EC tablet 40 mg 40 mg, oral, Every morning before breakfast, First dose on 12/04/24 at 0945, Look-alike/sound-alike medication - verify indication for use. If patient is receiving enteral feeding, consider alternative PPI or continue IV pantoprazole until the delayed-release tablet can be taken orally, Indication: GERD Given 12/06/2024 5:30 AM EDT 40 mg Given 12/05/2024 6:12 AM EDT 40 mg Given 12/04/2024 12:59 PM EDT 40 mg sodium chloride 0.45 % infusion 50 mL/hr, intravenous, Continuous, Starting on 12/04/24 at 1230, For 1 day Rate/Dose Verify 12/04/2024 1:20 PM EDT 50 mL/hr New Bag 12/04/2024 1:14 PM EDT 50 mL/hr 50 mL/hr sodium chloride 0.9 % flush 3 mL 3 mL, intravenous, Every 12 hours scheduled, First dose on 12/04/24 at 0945 Given 12/06/2024 9:00 AM EDT 3 mL Given 12/05/2024 10:15 PM EDT 3 mL Given 12/04/2024 9:45 AM EDT 3 mL spironolactone (ALDACTONE) tablet 25 mg 25 mg, oral, Daily, First dose on 12/04/24 at 0945 Given 12/06/2024 9:00 AM EDT 25 mg Given 12/05/2024 8:04 AM EDT 25 mg Given 12/04/2024 12:57 PM EDT 25 mg vortioxetine (TRINTELLIX) tablet 10 mg 10 mg, oral, Daily, First dose on 12/05/24 at 0900 Given 12/06/2024 9:04 AM EDT 10 mg documented in this encounter Active and Recently Administered Medications Times are shown in EDT. Scheduled Medication Order 12/04/2024 12/05/2024 12/06/2024 ARIPiprazole (ABILIFY) tablet 15 mg 15 mg, oral, Daily, First dose on 12/04/24 at 0945, Look-alike/sound-alike medication - verify indication for use. 1258 (Given - Provider: Christy Gonzalez RN) 0803 (Given - Provider: Christy Gonzalez RN) 0900 (Given - Provider: Jennifer Benson, VICTOR M) atorvastatin (LIPITOR) tablet 80 mg 80 mg, oral, Daily, First dose on Thu12/04/24 at 0945, Look-alike/sound-alike medication - verify indication for use. 1258 (Given - Provider: Christy Gonzalez RN) 0803 (Given - Provider: Christy Gonzalez RN) 0900 (Given - Provider: Jennifer Benson RN) calcium acetate(phosphat bind) (PHOSLO) capsule 667 mg (COMPLETED) 667 mg, oral, 3 times daily with meals, First dose on Thu12/04/24 at 1330, For 2 doses, If administering capsules via feeding tube, open capsule and dilute powder in 15 mL of water over 1 minute. After administration via feeding tube, flush tube with an additional 20 mL of water. 1412 (Given - Provider: Christy Gonzalez RN)1754 (Given - Provider: Christy Gonzalez RN) cefTRIAXone (ROCEPHIN) IVPB 1000 mg/50 mL in iso-osmotic dextrose (20 mg/mL premix) 1,000 mg, intravenous, at 100 mL/hr, Administer over 30 Minutes, Every 24 hours, First dose on Thu12/04/24 at 1300, Look-alike/sound-alike medication - verify indication for use. Do not co-administer with calcium-containing solutions such as Lactated Ringers., Indication: Community-acquired pneumonia 1322 (New Bag - Provider: Christy Gonzalez RN)1352 (Stop Bag - Provider: Christy Gonzalez RN) 1244 (New Bag - Provider: Christy Gonzalez RN)1314 (Stop Bag - Provider: Christy Gonzalez RN) clonazePAM (KlonoPIN) tablet 0.5 mg 0.5 mg, oral, 2 times daily, First dose on Thu12/05/24 at 1115, Look-alike/sound-alike medication - verify indication for use. 1239 (Given - Provider: Christy Gonzalez RN)2200 (Given - Provider: Axel Hickman RN) 0900 (Given - Provider: Jennifer Benson, VICTOR M) cyanocobalamin tablet 1,000 mcg 1,000 mcg, oral, Daily, First dose on Thu12/05/24 at 1115 1240 (Given - Provider: Christy Gonzalez, VICTOR M) 0900 (Given - Provider: Jennifer Benson, RN) ezetimibe (ZETIA) tablet 10 mg 10 mg, oral, Daily, First dose on Thu12/04/24 at 0945, Look-alike/sound-alike medication - verify indication for use. 1257 (Given - Provider: Christy Gonzalez RN) 0803 (Given - Provider: Christy Gonzalez RN) 0900 (Given - Provider: Jennifer Benson, RN) guaiFENesin (MUCINEX) tablet 600 mg 600 mg, oral, Every 12 hours scheduled, First dose on Thu12/05/24 at 1115, Look-alike/sound-alike medication - verify indication for use. Do not crush or chew. 1240 (Given - Provider: Christy Gonzalez, VICTOR M)2200 (Given - Provider: Axel Hickman, VICTOR M) 0900 (Given - Provider: Jennifer Benson, VICTOR M) heparin (porcine) injection 5,000 Units 5,000 Units, subcutaneous, Every 8 hours scheduled, First dose on Thu12/05/24 at 0600, Notify prescriber if INR greater than 1.9, hemoglobin less than 10 mg/dL, aPTT greater than 40 seconds, and/or platelet count less than 100,000/mm Look-alike/sound-alike medication - verify indication for use. Observe for bleeding. 0612 (Given - Provider: Axel Hickman, VICTOR M)1249 (Given - Provider: Christy Gonzalez RN)1400 (Canceled Entry - Provider: Christy Gonzalez RN)2200 (Given - Provider: Axel Hickman, RN) 0529 (Given - Provider: Axel Hickman, RN) insulin lispro (HumaLOG) injection 1-5 Units 1-5 Units, subcutaneous, 3 times daily with meals, First dose on Thu12/04/24 at 0945, Daytime hyperglycemia dosing. For blood glucose 151-200 mg/dL, give 1 unit. For blood glucose 201-250 mg/dL, give 2 units. For blood glucose 251-300 mg/dL, give 3 units. For blood glucose 301-350 mg/dL, give 4 units. For blood glucose 351-400 mg/dL, give 5 units. Give even if NPO or meals skipped. Do NOT give more often than every 4 hours when NPO. Notify prescriber if blood glucose greater than 400 mg/dL. Look-alike/sound-alike medication - verify indication for use. Prime with 2 units of insulin prior to administration. Prandial/supplemental Insulin. Pre-filled pens stable 28 days at room temperature. Insulin lispro should be administered within 15 minutes before or immediately after a meal. 0945 (Not Given - Provider: Christy Gonzalez RN - Reason: Order parameters not met - Comment: glucose 133 by serum)1329 (Given - Provider: Christy Gonzalez RN)1750 (Given - Provider: Christy Gonzalez RN - Comment: fsbs 165) 0800 (Not Given - Provider: Christy Gonzalez RN - Reason: Order parameters not met - Comment: glucose 140)1200 (Not Given - Provider: Christy Gonzalez RN - Reason: Order parameters not met - Comment: fsbs 144)1700 (Not Given - Provider: Christy Gonzalez RN - Reason: Order parameters not met - Comment: fsbs 147) 0712 (Not Given - Provider: Jennifer Benson RN - Reason: Order parameters not met) ipratropium-albuteroL (DUONEB) 0.5 mg-3 mg(2.5 mg base)/3 mL nebulizer solution 3 mL (COMPLETED) 3 mL, nebulization, Once, On 12/04/24 at 0655, For 1 dose, Implement INPATIENT/ED Bronchodilator Clinical Practice Guidelines? Yes 0702 (Given - Provider: Roxana Nicholson RCP) lamoTRIgine (LaMICtal) tablet 150 mg 150 mg, oral, Daily, First dose on 12/04/24 at 0945, Look-alike/sound-alike medication - verify indication for use. 1258 (Given - Provider: Christy Gonzalez RN) 0804 (Given - Provider: Christy Gonzalez RN) 0900 (Given - Provider: Jennifer Benson, VICTOR M) levoFLOXacin (LEVAQUIN) IVPB 750 mg/150 mL in dextrose 5% (5 mg/mL premix) (COMPLETED) 750 mg, intravenous, at 100 mL/hr, Administer over 90 Minutes, Once, On 12/04/24 at 0730, For 1 dose, Avoid administration through an intravenous line with a solution containing multivalent cations (eg, magnesium, calcium). Look-alike/sound-alike medication - verify indication for use. May alter blood glucose or insulin requirements., Specific Use Criteria: Community-acquired pneumonia, beta-lactam allergy, Fluoroquinolones contain FDA Black Box warnings. Due to safety concerns, avoid use in acute bacterial sinusitis, acute bacterial exacerbation of chronic bronchitis, or acute uncomplicated cystitis if possible. Use alternative treatment if available. I acknowledge the Black Box warnings of fluoroquinolones. 0736 (New Bag - Provider: Antonio Schultz Jr., RN)0904 (Stop Bag - Provider: Christy Gonzalez RN)09 (Stop Bag - Provider: Christy Gonzalez RN)0906 (Stop Bag - Provider: Antonio Schultz Jr., RN) methylPREDNISolone sod suc(PF) (Solu-MEDROL) injection 125 mg (COMPLETED) 125 mg, intravenous, Once, On 12/04/24 at 0655, For 1 dose, May alter blood glucose or insulin requirements. Look-alike/sound-alike medication - verify indication for use. 0655 (Given - Provider: Antonio Schultz Jr., RN) methylPREDNISolone sod suc(PF) (Solu-MEDROL) injection 40 mg 40 mg, intravenous, Every 12 hours scheduled, First dose on 12/04/24 at 2100, May alter blood glucose or insulin requirements. Look-alike/sound-alike medication - verify indication for use. 2157 (Given - Provider: Axel Hickman RN) 803 (Given - Provider: Christy Gonzalez RN)2199 (Given - Provider: Axel Hickman RN) 0900 (Given - Provider: Jennifer Benson RN) metoprolol succinate XL (TOPROL XL) 24 hr tablet 25 mg 25 mg, oral, Nightly, First dose on 12/04/24 at 2200, Look-alike/sound-alike medication - verify indication for use. Do not crush or chew. 2157 (Given - Provider: Axel Hickman RN) 2199 (Given - Provider: Axel Hickman RN) pantoprazole (PROTONIX) EC tablet 40 mg 40 mg, oral, Every morning before breakfast, First dose on 12/04/24 at 0945, Look-alike/sound-alike medication - verify indication for use. If patient is receiving enteral feeding, consider alternative PPI or continue IV pantoprazole until the delayed-release tablet can be taken orally, Indication: GERD 1259 (Given - Provider: Christy Gonzalez RN) 0612 (Given - Provider: Axel Hickman RN) 0530 (Given - Provider: Axel Hickman RN) sodium chloride 0.9 % flush 3 mL 3 mL, intravenous, Every 12 hours scheduled, First dose on 12/04/24 at 0945 0945 (Given - Provider: Christy Gonzalez RN)2100 (Not Given - Provider: Axel Hikcman RN - Reason: IV infusing) 0900 (Canceled Entry - Provider: Christy Gonzalez RN - Comment: IV infusing)2215 (Given - Provider: Axel Hickman RN) 0900 (Given - Provider: Jennifer Benson RN) spironolactone (ALDACTONE) tablet 25 mg 25 mg, oral, Daily, First dose on 12/04/24 at 0945 1257 (Given - Provider: Christy Gonzalez RN) 0804 (Given - Provider: Christy Gonzalez RN) 0900 (Given - Provider: Jennifer Benson RN) vortioxetine (TRINTELLIX) tablet 10 mg 10 mg, oral, Daily, First dose on 12/05/24 at 0900 0900 (Not Given - Provider: Christy Gonzalez RN - Reason: Medication not available) 0904 (Given - Provider: Jennifer Benson RN) Continuous Medication Order 12/04/2024 12/05/2024 12/06/2024 sodium chloride 0.45 % infusion (CANCELED) 50 mL/hr, intravenous, Continuous, Starting on 12/04/24 at 1230, For 1 day 1314 (New Bag - Provider: Christy Gonzalez RN)1320 (Rate/Dose Verify - Provider: Christy Gonzalez RN)1322 (Stop Bag - Provider: Christy Gonzalez RN) 1314 (Stop Bag - Provider: Christy Gonzalez RN - Comment: [Order ends at this time. Document the following action when infusion is complete: Stop Bag]) PRN Medication Order 12/04/2024 12/05/2024 12/06/2024 acetaminophen (TYLENOL) tablet 650 mg 650 mg, oral, Every 4 hours PRN, mild pain - pain scale 1-3, moderate pain - pain scale 4-6, temperature greater than 38 C, Starting on 12/04/24 at 0931 1313 (Given - Provider: Christy Gonzalez, RN)1950 (Given - Provider: Axel Hickman, RN) 0551 (Given - Provider: Mirna Frye, RN)1106 (Given - Provider: Christy Gonzalez, VICTOR M)1647 (Given - Provider: Christy Gonzalez, VICTOR M)2310 (Given - Provider: Axle Hickman, VICTOR M) 0529 (Given - Provider: Axel Hickman, VICTOR M)0904 (Given - Provider: Jennifer Benson RN) albuterol (PROVENTIL,VENTOLIN) nebulizer solution 0.63 mg 0.63 mg, nebulization, Every 6 hours PRN, wheezing, Starting on 12/04/24 at 0931, Implement INPATIENT/ED Bronchodilator Clinical Practice Guidelines? No 1053 (Not Given - Provider: Roxana Nicholson RCP - Reason: Other - Comment: RT busy in ED)1928 (Given - Provider: Joan Malone RCP) 0247 (Given - Provider: Joan Malone RCP)0646 (Canceled Entry - Provider: Christy Gonzalez RN) 0855 (Given - Provider: Vicki Henry RCP - Comment: 2.5 mg scanned; half of the dose given) dextrose (GLUTOSE) 40 % gel 15 g 15 g, oral, As needed, low blood sugar, blood glucose less than 70 mg/dL, Starting on 12/04/24 at 0931, If patient conscious and taking PO. If blood glucose is not greater than 70 mg/dL after initial treatment, repeat treatment. dextrose 50 % in water (D50W) 50% solution 25 mL 25 mL, intravenous, As needed, low blood sugar, blood glucose less than 70 mg/dL and unconscious or NPO with IV access, Starting on 12/04/24 at 0931, Push over 1-3 minutes STAT. If conscious and not NPO, immediately follow with meal tray or high protein (7 grams) snack if tray not available. If NPO, initiate 5% dextrose in water at 100 mL/hr and contact prescriber for additional orders. If blood glucose is not greater than 70 mg/dL after initial treatment, repeat treatment. VESICANT (RED) Warning: HYPERTONIC solution. glucagon HCL injection 1 mg 1 mg, intramuscular, As needed, low blood sugar, blood glucose less than 70 mg/dL and unconscious or NPO without IV access., Starting on 12/04/24 at 0931, If conscious and not NPO, immediately follow with meal tray or high protein (7Grams) snack if tray not available. If NPO, initiate IV 5% Dextrose/Water at 100 mL/hr and contact prescriber for additional orders. If blood glucose is not greater than 70 mg/dL after initial treatment, repeat treatment. sodium chloride 0.9 % flush 3 mL 3 mL, intravenous, As needed, line care, before and after each intermittent use, Starting on 12/04/24 at 0931 sodium chloride 0.9 % flush bag 25 mL, intravenous, at 100 mL/hr, Administer over 15 Minutes, As needed, line care, line care after IVPB administration, Starting on 12/04/24 at 0931 documented in this encounter Additional Health Concerns Assessment Noted Time PHQ-9 Depression Total Score: 0 11/08/19 25 2:16 PM EDT documented as of this encounter Care Teams Construction [employer]umber Relationship Specialty Start Date End Date Michael Steiner DO [address] [place] [address] PCP - General Internal Medicine 12/17/23 documented as of this encounter
--- OUTSIDE RECORDS SUMMARY | 2024-12-15 12:30 | XMS_ITS | Encounter Summary ---
Author Organization [facility] Address [id number] [address] [place] [address] Care Team Providers Care Leather Stripping Machine Operator Name Role Phone Michael Steiner DO Primary Care Provider [phone] Reason for Visit * Reason Comments TCM/ Respiratory Failure Encounter Details Date Type Department Care Team (Late st Contact Info) Description 12/15/2024 12:30 PM EDT Office Visit [facility] Internal Medicine - Family Medicine [address] [place] [phone] Michael Steiner DO [address] [place] [address] Microcytic anemia (Primary Dx); Gastro-esophageal reflux disease without esophagitis; Stage 3a chronic kidney disease (CMS-HCC); Spinal stenosis of lumbar region with neurogenic claudication Social History Tobacco Use Types Packs/Day Years Used Date Smoking Tobacco: Former Cigarettes 1 40 0 09/1981 - 09/2021 Smokeless Tobacco: Never Comments:5-6 cigerettes a da y Alcohol Use Standard Drinks/Week Comments Not Currently 0 (1 standard drink = 0.6 oz pur e alcohol) last use 15 years ago [facility] Utilities Answer Date Recorded In [...] often do you attend chur ch or islam services? More than 4 times per year [...] PHQ-2 Answer Date Recorded Total Score 0 12/15/2024 [facility] - Occupational [...] got money to buy more. Never True 12/15/2024 Within the past 12 months th e food we bought just didn't last and we didn't have money to get more. Never True 12/15/2024 Purpose - Life Answer Date Recorded I [...] Sign Reading Time Taken Comments Blood Pressure 110/62 12/15/2024 12:37 PM EDT Pulse 88 12/15/2024 12:37 PM EDT Temperature 36.9 C (98.5 F) 12/15/2024 12:37 PM EDT Respiratory Rate 20 12/15/2024 12:3 7 PM EDT Oxygen Saturation 95% 12/15/2024 12: 37 PM EDT Inhaled Oxygen Concentration - - Weight 109.6 kg (241 lb 9.6 oz) 025 12:37 PM EDT Height 175.3 cm (5' 9.02 ) 12/15/2024 1 2:37 PM EDT Body Mass Index 35.66 12/15/2024 12:37 PM EDT documented in this encounter Progress Notes * Michael Steiner DO - 12/15/2024 12:30 PM EDT Subjective Patient ID: Monet Recinos is a 64 y.o. female. The patient is here today for discharge followup from hospital. Transition of Care Med Rec completed? Yes Discharged medications: Medications have been reviewed and reconciled with the most recent facilitydischarge document. HPI The following portions of the patient's history were reviewed and updated as appropriate: allergies, current medications, past family history, past medical history, past social history, past surgicalhistory, problem list, and medication reconciliation was completed including current medication andpost discharge medication. Patient has been admitted to the hospital because of acute on chronic respiratory failure with hypoxemia and hypercapnia. She had not been wearing her CPAP device for over a month. Once this was initiated her symptoms resolved fairly quickly. Since being at home, she has been wearing her CPAP nightly and does feel better. She also stopped smoking once again. She has been taking her torsemide 20 mg 3 times daily although this was stopped while in the hospital. She wonders if she can stop the guaifenesin. Still wearing oxygen continuously, otherwise her PO2 will drop < 88 % Review of Systems Constitutional: Negative. HENT: Positive for voice change (Some hoarseness). Eyes: Negative. Respiratory: Improved from in the hospital. Now using CPAP and her nebulizers Cardiovascular: Negative for chest pain, palpitations and leg swelling. Gastrointestinal: Is having nausea and some reflux after eating again. Is taking the pantoprazole daily. Was noted tohave worsened microcytic anemia while in the hospital. Previous upper GI showed hiatal hernia but no other specific findings. Endocrine: Negative. Genitourinary: Positive for frequency and urgency. Stress incontinence Musculoskeletal: Positive for arthralgias. Skin: Negative. Neurological: Negative. Hematological: Negative. Psychiatric/Behavioral: Positive for decreased concentration. Objective Physical Exam Vitals reviewed. Exam conducted with a data administrator present (Friend/POA). Constitutional: General: She is not [...] Abdominal: Palpations: Abdomen is soft. Musculoskeletal: General: No tenderness. Right lower leg: No edema (1+ to above the ankle). Left lower leg: No edema (1+ to with the ankle). Lymphadenopathy: Cervical: No cervical adenopathy. Skin: General: Skin is warm and dry. Coloration: Skin is not jaundiced. Findings: No bruising. Neurological: Mental Status: She is alert and oriented to person, place, and time. Sensory: Sensory deficit (Diminished vibratory sensation on the for feet bilaterally but intact at the ankle. Monofilament testing variable bilaterally. Decreased pinprick sensation in the S1 dermatome bilaterally.) present. Motor: No weakness. Coordination: Coordination normal. Deep Tendon Reflexes: Reflexes are normal and symmetric. Psychiatric: Mood and Affect: Mood normal. Behavior: Behavior normal. Assessment/Plan Monet was seen today for tcm/ respiratory failure. Her respiratory status is stable or improved from admission. She should continue using her CPAP regularly. Continue oxygen regularly. Other issuesneed to be addressed or followed up as noted below. Diagnoses and all orders for this visit: Microcytic anemia -patient with upper GI one-month ago showing hiatal hernia -patient on pantoprazole with some improvement in symptoms but not resolved -continues to have microcytic anemia -will proceed with upper endoscopy to evaluate for pathologic causes for symptoms and anemia - EGD; Future Gastro-esophageal reflux disease without esophagitis - EGD; Future Stage 3a chronic kidney disease ([facility]-HCC) -patient now back on torsemide 20 mg 3 times daily -I believe much of her swelling requiring the torsemide was due to her worsened pulmonary hypertension from noncompliance with CPAP -repeat metabolic panel, may need further adjustment in torsemide - Basic Metabolic Panel; Future - Basic Metabolic Panel Spinal stenosis of lumbar region with neurogenic claudication -patient complaining that her pregabalin is not working and would like to go back on gabapentin -I advised her both, especially the gabapentin would only make her leg swelling worsen that we should avoid this -her findings on exam today seem more related to lumbar radiculopathy rather than peripheral neuropathy -should speak with her pain management about AUTUMN injections to the lumbar spine rather than SI joint -regardless, if we continue to treat as a peripheral neuropathy, consider use of Qutenza instead ofmedications because of numerous side effects -this was written down for the patient for her to discuss with her pain management Other orders - torsemide (DEMADEX) 10 mg tablet; Take 3 tablets (30 mg total) by mouth daily. -further recommendations following testing documented in this encounter Plan of Treatment Upcoming Encounters Date Type Department Care Team (Latest Contact Info) Description 5 2:40 PM EDT Support Visit [facility] - Pre Admit [address] [place] [address] 5 10:00 AM EDT Hospital Encounter [facility] - Endoscopy [address] [place] [address] Michael Steiner, DO [address] [place] [address] Microcytic anemia (Primary Dx) 5 10:00 AM EDT - 5 11:00 AM EDT Surgery [facility] - Endoscopy [address] [place] [address] Michael Steiner, DO [address] [place] [address] ESOPHAGOGASTRODUODENOSCOPY DIAGNOSTIC [12553 (CPT )] 5 7:30 AM EDT Appointment [facility] - Cardiovascular [address] [place] [address] Inez Cook, MANAGER RESIDENTIAL-HORSE RANCHER [address] [place] [phone] 5 3:30 PM EDT Office Visit [facility] - Heart Failure Clinic [address] [place] [address] Risa Summers MD [address] [place], [place] [phone] 1:30 PM EDT Office Visit [facility] Internal Medicine - Family Medicine [address] [place] [address] Michael Steiner, DO [address] [place] [address] Scheduled Orders Name Type Priority Associated Diagnoses Orde r Schedule EGD GI Routine Microcytic anemia Gastro-esophageal reflux disease without esophagitis 1 Occurrences starting 12/15/2024 until 12/15/2025 Scheduled Procedures Name Priority Associated Diagnoses Date/Ti me ESOPHAGOGASTRODUODENOSCOPY DIAGNOSTIC microcytic anemia 12/20/2024 10:00 AM EDT ESOPHAGOGASTRODUODENOSCOPY DIAGNOSTIC Microcytic anemia documented as of this encounter Goals Goal Patient Goal Type Associated Problems Recent Progress Patient-Stated? Author home General Yes Jimena Snider LSW Note: Evaluation of progress towards goal: feeling better Autogenerated Goal Care Plan Autogenerated Problem No Consuelo Longoria documented as of this encounter Procedures Procedure Name Priority Date/Time Associated Diagnosis Comments BASIC METABOLIC PANEL Routine 12/15/2024 1:10 PM EDT Stage 3a chronic kidney disease ([facility]-HCC) documented in this encounter Results * (ABNORMAL) Basic Metabolic Panel (12/15/2024 1:10 PM EDT) SODIUM 142 134 - 146 mmol/L 12/15/2024 6:37 PM EDT [facility] POTASSIUM 4.5 3.5 - 5.0 mmol/L 12/15/2024 6:37 PM EDT [facility] CHLORIDE 101 98 - 109 mmol/L 12/15/2024 6:37 PM EDT [facility] CARBON DIOXIDE 33(H) 22 - 32 mmol/L 12/15/2024 6:37 PM EDT [facility] ANION GAP 8 5 - 15 mmol/L 12/15/2024 6:37 PM EDT [facility] BLOOD UREA NITROGEN 21 5 - 27 mg/dL 12/15/2024 6:37 PM EDT [facility] CREATININE 1.32(H) 0.40 - 1.00 mg/dL 12/15/2024 6:37 PM EDT [facility] Comment:METHOD TRACEABLE TO [facility] STANDARD GLUCOSE 106(H) 65 - 99 mg/dL 12/15/2024 6:37 PM EDT [facility] CALCIUM 9.0 8.5 - 10.5 mg/dL 12/15/2024 6:37 PM EDT [facility] EGFR Non-Race Dependent 46(L) >=60 ml/min/1.7 3sq.m 12/15/2024 6:37 PM EDT [facility] Comment: Reported eGFR is based on the CKD-EPI 2020 equation that does not use a race coefficient. Blood Venous blood / Unknown 12/15/2024 1:10 PM EDT 12/15/2024 1:10 PM EDT us Michael Steiner DO LAB BLOOD ORDERABLES Final Resul t [facility] [address] [place] [address], [place] [phone] documented in this encounter Visit Diagnoses Diagnosis Microcytic anemia- Primary Unspecified iron deficiency anemia Gastro-esophageal reflux disease without esophagitis Stage 3a chronic kidney disease (CMS-HCC) Spinal stenosis of lumbar region with neurogenic claudication Microcytic anemia- Primary Unspecified iron deficiency anemia documented in this encounter Additional Health Concerns Active Problems Noted Date Diagnosed Date Autogenerated Problem 12/15/2024 Assessment Noted Time PHQ-9 Depression Total Score: 0 12/16/19 25 12:36 PM EDT documented as of this encounter Care Teams Leather Stripping Machine Operator Relationship Specialty Start Date End Date Michael Steiner DO [address] [place] [address] PCP - General Internal Medicine 12/17/23 documented as of this encounter
--- OUTSIDE RECORDS SUMMARY | 2024-12-19 13:37 | XMS_ITS | Encounter Summary ---
Author Organization [facility] Address [facility] [id number] [address] [place] [address] Care Team Providers Care Clothes Shaker Name Role Phone Michael Steiner DO Primary Care Provider [phone] Encounter Details Date Type Department Care Team (Late st Contact Info) Description 02/13/2023 Telephone [facility] - Wound Care Outpatient [address] [place] [phone] Rosangela Tomlinson Social History Tobacco Use Types [...] week 01/09/2020 How often do you attend muslim or buddhism serv ices? Never 01/09/2020 Do [...] Recorded Do you need help finding a [employer] career center and/or a training program? No [...] 2:40 PM EDT Support Visit [facility] - Pre Admit [address] [place] [address] 5 10:00 AM EDT Hospital Encounter [facility] - Endoscopy [address] [place] [address] Michael Steiner, DO [address] [place] [address] Microcytic anemia (Primary Dx) 5 10:00 AM EDT - 5 11:00 AM EDT Surgery [facility] - Endoscopy [address] [place] [address] Michael Steiner, DO [address] [place] [address] ESOPHAGOGASTRODUODENOSCOPY DIAGNOSTIC [06858 (CPT )] 5 7:30 AM EDT Appointment [facility] - Cardiovascular [address] [place] [address] Inez Cook, MODEL BUILDER-DENTAL LABORATORY TECHNICIAN APPRENTICE [address] [place] [address] 5 3:30 PM EDT Office Visit [facility] - Heart Failure Clinic [address] [place] [address] Risa Summers MD [address] [place] [address] 5 1:30 PM EDT Office Visit [facility] Internal Medicine - Family Medicine [address] [place] [address] Michael Steiner, DO [address] [place] [address] Scheduled Procedures Name Priority Associated Diagnoses Date/Ti ct ESOPHAGOGASTRODUODENOSCOPY DIAGNOSTIC microcytic anemia 12/20/2024 10:00 AM EDT ESOPHAGOGASTRODUODENOSCOPY DIAGNOSTIC Microcytic anemia documented as of this encounter Visit Diagnoses [...] documented as of this encounter Care Teams Clothes Shaker Relationship Specialty Start Date End Date Michael Steiner DO [address] [place] [address] PCP - General Internal Medicine 12/17/23 documented as of this encounter
--- OUTSIDE RECORDS SUMMARY | 2024-12-19 13:37 | XMS_ITS | Encounter Summary ---
Author Organization [facility] Address [id number] [address] [place] [address] Care Team Providers Care Public Information Director Name Role Phone Joansunshine Michael Janae CABRERA Primary Care Provider [phone] Reason for Visit * Reason Comments Med Refill Encounter Details Date Type Department Care Team (Late st Contact Info) Description 09/03/2022 Refill [facility] - Heart Failure Clinic [address] [place] [address] Cynthia Buchanan, PRODUCT SAFETY OFFICER-ASSISTANT PROFESSOR OF BIOCHEMISTRY [address] [place] [address] Chronic heart failure with preserved ejection fraction [...] week 01/09/2020 How often do you attend denominational or denominational serv ices? Never 01/09/2020 Do you belong [...] Recorded Do you need help finding a [employer] career center and/or a training program? No [...] Description 5 2:40 PM EDT Support Visit [facility] - Pre Admit [address] [place] [address] 5 10:00 AM EDT Hospital Encounter [facility] - Endoscopy [address] [place] [address] Michael Steiner, DO [address] [place], [place] [phone] Microcytic anemia (Primary Dx) 5 10:00 AM EDT - 5 11:00 AM EDT Surgery [facility] - Endoscopy [address] [place] [address] Michael Steiner, DO [address] [place] [address] ESOPHAGOGASTRODUODENOSCOPY DIAGNOSTIC [26367 (CPT )] 5 7:30 AM EDT Appointment [facility] - Cardiovascular [address] [place] [address] Inez Cook, PRODUCT SAFETY OFFICER-ASSISTANT PROFESSOR OF BIOCHEMISTRY [address] [place] [address] 5 3:30 PM EDT Office Visit [facility] - Heart Failure Clinic [address] [place] [address] Risa Summers MD [address] [place] [address] 5 1:30 PM EDT Office Visit [facility] Internal Medicine - Family Medicine [address] [place] [address] Michael Steiner, DO [address] [place] [address] Scheduled Procedures Name Priority Associated Diagnoses Date/Ti vt ESOPHAGOGASTRODUODENOSCOPY DIAGNOSTIC microcytic anemia 12/20/2024 10:00 AM EDT ESOPHAGOGASTRODUODENOSCOPY DIAGNOSTIC Microcytic anemia documented as of this encounter Visit Diagnoses Diagnosis Chronic heart failure with preserved ejection fraction (CMS-HCC) Shortness of breath Microcytic anemia- Primary Unspecified iron deficiency anemia [...] documented as of this encounter Care Teams Public Information Director Relationship Specialty Start Date End Date Michael Steiner DO [address] [place] [address] PCP - General Internal Medicine 12/17/23 documented as of this encounter
--- OUTSIDE RECORDS SUMMARY | 2024-12-19 13:37 | XMS_ITS | Encounter Summary ---
Author Organization [facility] [facility] Address [id number] [place] [address] Care Team Providers Care Slip Feeder Name Role Phone Michael Steiner DO Primary Care Provider [phone] Encounter Details Date Type Department Care Team (Late st Contact Info) Description 10/27/2023 Orders Only [facility] Internal Medicine - Family Medicine [address] [place] [address] Michael Steiner DO [address] [place] [address] Closed wedge compression fracture of T6 vertebra with routine healing Social History Tobacco Use Types Packs/Day Years Used Date Smoking Tobacco: Former Cigarettes 1 40 0 09/1981 - 09/2021 Smokeless Tobacco: Never Comments:5-6 cigerettes a da y Alcohol Use Standard Drinks/Week Comments Not Currently 0 (1 standard drink = 0.6 oz pur e alcohol) last use 15 years ago [facility] Utilities Answer Date Recorded In the past 12 months has [employer], gas, oil, or water company threatened to [...] often do you attend chur ch or roman catholic services? More than 4 [...] Answer Date Recorded Total Score 0 09/30/2023 [facility] - [...] Recorded Do you need help finding a [facility] career center and/or a training program? [...] Description 5 2:40 PM EDT Support Visit [facility] - Pre Admit [address] [place] [address] 5 10:00 AM EDT Hospital Encounter [facility] - Endoscopy [address] [place] [address] Michael Steiner, DO [address] [place] [address] Microcytic anemia (Primary Dx) 5 10:00 AM EDT - 5 11:00 AM EDT Surgery [facility] - Endoscopy [address] [place] [address] Michael Steiner, DO [address] [place] [address] ESOPHAGOGASTRODUODENOSCOPY DIAGNOSTIC [[id number] (CPT )] 5 7:30 AM EDT Appointment [facility] - Cardiovascular [address] [place] [address] Inez Cook, GREIGE GOODS MARKER-SECONDS HANDLER [address] [place] [address] 5 3:30 PM EDT Office Visit [facility] - Heart Failure Clinic [address] [facility] [place] [address] Risa Summers MD [address] [place] [address] 5 1:30 PM EDT [facility] - Family Medicine [address] [place] [address] Michael Steiner DO [address] [place] [address] Scheduled Procedures Name Priority Associated Diagnoses Date/Ti me ESOPHAGOGASTRODUODENOSCOPY DIAGNOSTIC microcytic anemia 12/20/2024 10:00 AM EDT ESOPHAGOGASTRODUODENOSCOPY DIAGNOSTIC Microcytic anemia documented as of this encounter Procedures Procedure [...] fracture of T6 vertebra with routine healing Microcytic anemia- Primary Unspecified iron deficiency anemia documented in this encounter Additional Health Concerns Infection Onset Date Last Indicated Resolved Time COVID-19 Rule-Out 12/17/2023 12/17/2023 12/17/2023 1:50 PM EDT Assessment Noted Time PHQ-9 Depression Total Score: 0 09/30/19 1:38 PM EDT documented as of this encounter Care Teams Slip Feeder Relationship Specialty Start Date End Date Michael Steiner DO [address] [place] [address] PCP - General Internal Medicine 12/17/23 documented as of this encounter
--- OUTSIDE RECORDS SUMMARY | 2024-12-19 13:37 | XMS_ITS | Encounter Summary ---
Author Organization [facility] Address [id number] [address] [place] [address] Care Team Providers Care Vp Strategic Partnerships Name Role Phone JoanMichael gonsalez Janae CABRERA Primary Care Provider [phone] Reason for Visit * Reason Comments Med Refill Encounter Details Date Type Department Care Team (Late st Contact Info) Description 11/27/2021 Refill [facility] Cardiology [address] [place] [phone] Tristen Maldonado MD [address] [place] [address] Med Refill Social History Tobacco Use Types [...] week 01/09/2020 How often do you attend mandaen or episcopal serv ices? Never 01/09/2020 Do [...] Description 5 2:40 PM EDT Support Visit [facility] - Pre Admit [address] [place] [address] 5 10:00 AM EDT Hospital Encounter [facility] - Endoscopy [address] [facility] [place] [phone] Michael Steiner, DO [address] [place] [address] Microcytic anemia (Primary Dx) 5 10:00 AM EDT - 5 11:00 AM EDT Surgery [facility] - Endoscopy [address] [place] [address] Michael Steiner, DO [address] [place] [address] ESOPHAGOGASTRODUODENOSCOPY DIAGNOSTIC [98837 (CPT )] 5 7:30 AM EDT Appointment [facility] - Cardiovascular [address] [place] [address] Inez Cook, NEWSPAPER STUFFER-MINE SURVEYOR [address] [place] [address] 5 3:30 PM EDT Office Visit [facility] - Heart Failure Clinic [address] [place] [address] Risa Summers MD [address] [place] [address] 5 1:30 PM EDT Office Visit [facility] Internal Medicine - Family Medicine [address] [place] [address] Michael Steiner, DO [address] [place] [address] Scheduled Procedures Name Priority Associated Diagnoses Date/Ti nh ESOPHAGOGASTRODUODENOSCOPY DIAGNOSTIC microcytic anemia 12/20/2024 10:00 AM [...] documented as of this encounter Care Teams Vp Strategic Partnerships Relationship Specialty Start Date End Date Michael Steiner DO [address] [place] [address] PCP - General Internal Medicine 12/17/23 documented as of this encounter
--- OUTSIDE RECORDS SUMMARY | 2024-12-19 13:37 | XMS_ITS | Encounter Summary ---
Author Organization [facility] Address [id number] [address] [place] [address] Care Team Providers Care Substation Designer Name Role Phone Michael Steiner DO Primary Care Provider [phone] Encounter Details Date Type Department Care Team (Late st Contact Info) Description 12/24/2023 Orders Only [facility] Internal Medicine - Family Medicine [address] [place] [address] Michael Steiner DO [address] [place] [address] Social History Tobacco Use Types Packs/Day Years Used Date Smoking Tobacco: Former Cigarettes 1 40 0 09/1981 - 09/2021 Smokeless Tobacco: Never Comments:5-6 cigerettes a da y Alcohol Use Standard Drinks/Week Comments Not Currently 0 (1 standard drink = 0.6 oz pur e alcohol) last use 15 years ago [facility] Utilities Answer Date Recorded In the past 12 months has [employer] electric, gas, oil, or water company threatened [...] often do you attend chur ch or jehovah's witness services? More than 4 [...] Answer Date Recorded Total Score 0 11/02/2023 [facility] [...] Description 5 2:40 PM EDT Support Visit [facility] - Pre Admit [address] [place] [address] 5 10:00 AM EDT Hospital Encounter [facility] - Endoscopy [address] [place] [address] Michael Steiner, DO [address] [place] [address] Microcytic anemia (Primary Dx) 5 10:00 AM EDT - 5 11:00 AM EDT Surgery [facility] - Endoscopy [address] [place] [address] Michael Steiner, DO [address] [place] [address] ESOPHAGOGASTRODUODENOSCOPY DIAGNOSTIC [68859 (CPT )] 5 7:30 AM EDT Appointment [facility] - Cardiovascular [address] [place] [address] Inez Cook, BORING MACHINE OPERATOR HORIZONTAL-HEDDLE MACHINE OPERATOR [address] [place] [address] 5 3:30 PM EDT Office Visit [facility] - Heart Failure Clinic [address] [place] [address] Risa Summers MD [address] [place] [address] 5 1:30 PM EDT Office Visit [facility] Internal Medicine - Family Medicine [address] [place] [address] Michael Steiner DO [address] [place] [address] Scheduled Procedures Name Priority Associated Diagnoses Date/Ti me ESOPHAGOGASTRODUODENOSCOPY DIAGNOSTIC microcytic anemia 12/20/2024 10:00 AM EDT ESOPHAGOGASTRODUODENOSCOPY DIAGNOSTIC Microcytic anemia documented as of this encounter Visit Diagnoses Not on filedocumented in this encounter Additional Health Concerns Assessment Noted Time PHQ-9 Depression Total Score: 0 11/02/19 3:42 PM EDT documented as of this encounter Care Teams Substation Designer Relationship Specialty Start Date End Date Michael Steiner DO [address] [place] [address] PCP - General Internal Medicine 12/17/23 documented as of this encounter
--- OUTSIDE RECORDS SUMMARY | 2024-12-19 13:37 | XMS_ITS | Encounter Summary ---
Author Organization [employer] Address [id number] [address] [place] [address] Care Team Providers Care Podiatric Foot And Ankle Specialist Name Role Phone Joansunshine Michael Janae CABRERA Primary Care Provider [phone] Reason for Visit * Reason Onset Date Comments Lorenzo 10/19/2020 Encounter Details Date Type Department Care Team (Late st Contact Info) Description 10/19/2020 [facility] [address] [place] [address] Sharon Beaver, VICTOR M Ventura [...] How often do you attend zoroastrianism or bahai serv ices? Never 01/09/2020 Do you belong [...] Recorded Do you need help finding a [employer] career center and/or a training program? No [...] PM EDT Prior auth done for [employer]-note [facility] sent note not available and no idea if they will get any in -called [facility] they have a starter pack available. Called pt to see if she would be willing to getat Grunds due to questional availability at [facility]-states has decided not to use [employer]. documented in this encounter Plan of Treatment Upcoming Encounters Date Type Department Care Team (Latest Contact Info) Description 5 2:40 PM EDT Support Visit [facility] - Pre Admit [address] [place] [address] 5 10:00 AM EDT Hospital Encounter [facility] - Endoscopy [address] [place] [address] Michael Steiner, DO [address] [place] [address] Microcytic anemia (Primary Dx) 5 10:00 AM EDT - 5 11:00 AM EDT Surgery [facility] - Endoscopy [address] [place] [address] Michael Steiner, DO [address] [place] [address] ESOPHAGOGASTRODUODENOSCOPY DIAGNOSTIC [57780 (CPT )] 5 7:30 AM EDT Appointment [facility] - Cardiovascular [address] [place] [address] Inez Cook, TRUCK DRIVER SUPERVISOR-RESIDENCE LIFE COORDINATOR [address] [place] [address] 5 3:30 PM EDT Office Visit [facility] - Heart Failure Clinic [address] [place] [address] Risa Summers MD [address] [place] [address] 5 1:30 PM EDT Office Visit [facility]icians Internal Medicine - Family Medicine [address] [place] [address] Michael Steiner, DO [address] [place] [address] Scheduled Procedures Name Priority Associated Diagnoses Date/Ti [...] documented as of this encounter Care Teams Podiatric Foot And Ankle Specialist Relationship Specialty Start Date End Date Michael Steiner DO [address] [place] [address] PCP - General Internal Medicine 12/17/23 documented as of this encounter
--- OUTSIDE RECORDS SUMMARY | 2024-12-19 13:37 | XMS_ITS | Encounter Summary ---
Author Organization [facility] Address [id number] [address] [place] [address] Care Team Providers Care Streetcar Conductor Name Role Phone Michael Steiner DO Primary Care Provider [phone] Reason for Visit * Reason Comments Med Refill Encounter Details Date Type Department Care Team (Late st Contact Info) Description 06/10/2023 Refill [facility] Pulmonary/Sleep Medicine [address] [address] Grace Meadows DO [address] [address] Social History Tobacco Use Types [...] week 01/09/2020 How often do you attend anabaptism or jainism serv ices? Never 01/09/2020 Do you belong [...] Recorded Do you need help finding a [employer] career center and/or a training program? No [...] Department Care Team (Latest Contact Info) Description 08/25/202 5 2:40 PM EDT Support Visit [facility] - Pre Admit [address] [place] [address] 5 10:00 AM EDT Hospital Encounter [facility] - Endoscopy [address] [place] [address] Michael Steiner, DO [address] [place] [address] Microcytic anemia (Primary Dx) 5 10:00 AM EDT - 5 11:00 AM EDT Surgery [facility] - Endoscopy [address] [place] [address] Michael Steiner, DO [address] [place] [address] ESOPHAGOGASTRODUODENOSCOPY DIAGNOSTIC [11684 (CPT )] 5 7:30 AM EDT Appointment [facility] - Cardiovascular [address] [place] [address] Inez Cook, BENEFITS ANALYST-PUMP RUNNER [address] [place] [address] 5 3:30 PM EDT Office Visit [facility] - Heart Failure Clinic [address] [place] [address] Risa Summers MD [address] [place], [place] [address] 5 1:30 PM EDT Office Visit [facility] Internal Medicine - Family Medicine [address] [place] [address] Michael Steiner, DO [address] [place] [address] Scheduled Procedures Name Priority Associated Diagnoses Date/Ti [...] documented as of this encounter Care Teams Streetcar Conductor Relationship Specialty Start Date End Date Michael Steiner DO [address] [place] [address] PCP - General Internal Medicine 12/17/23 documented as of this encounter
--- OUTSIDE RECORDS SUMMARY | 2024-12-19 13:37 | XMS_ITS | Encounter Summary ---
Author Organization [facility] Address [id number] [address] [place] [address] Care Team Providers Care Tube Splicer Name Role Phone Michael Steiner DO Primary Care Provider [phone] Encounter Details Date Type Department Care Team (Late st Contact Info) Description 04/29/2023 Documentation [facility] Sign In [address] [place] [address] Pao Hernandez, POST PARTUM NURSE-POTATO CHIP PROCESSING SUPERVISOR [address] [place] [address] Social History Tobacco Use Types [...] often do you attend jehovah's witness or judaism serv ices? Never 01/09/2020 Do you belong [...] Recorded Do you need help finding a [facility] career center and/or a training [...] Description 5 2:40 PM EDT Support Visit [facility] - Pre Admit [address] [place] [address] 5 10:00 AM EDT Hospital Encounter [facility] - Endoscopy [address] [facility] [place] [address] Michael Steiner, [address] [place] [address] Microcytic anemia (Primary Dx) 5 10:00 AM EDT - 5 11:[address] [facility] - Endoscopy [address] [facility] [address] Michael Steiner, [address] [place] [address] ESOPHAGOGASTRODUODENOSCOPY DIAGNOSTIC [33595 (CPT )] 5 7:[address] [facility] - Cardiovascular [address] [place] [address] Ienz Cook, POST PARTUM NURSE-POTATO CHIP PROCESSING SUPERVISOR [address] [place] [address] 5 3:30 PM EDT Office Visit [facility] - Heart Failure Clinic [address] [place] [address] Risa Summers MD [address] [place] [address] 5 1:30 PM EDT Office Visit [facility] Internal Medicine - Family Medicine [address] [place] [address] Michael Steiner, [address] [place] [address] Scheduled Procedures Name Priority Associated Diagnoses Date/Ti [...] documented as of this encounter Care Teams Tube Splicer Relationship Specialty Start Date End Date Micheal Steiner DO [address] [place] [address] PCP - General Internal Medicine 12/17/23 documented as of this encounter
--- OUTSIDE RECORDS SUMMARY | 2024-12-19 13:37 | XMS_ITS | Encounter Summary ---
Author Organization [facility] Address [id number] [address] [place] [address] Care Team Providers Care Horse Shoer Name Role Phone Michael Steiner DO Primary Care Provider [phone] Encounter Details Date Type Department Care Team (Late st Contact Info) Description 09/03/2022 [facility] Only [facility] [address] [facility] [address] [place] [address] Cynthia Buchanan, MOTORCYCLE REPAIR SHOP SUPERVISOR-ANIMAL HUMANE AGENT SUPERVISOR [address] [place], [place] [address] Social History Tobacco Use Types Packs/Day Years [...] week 01/09/2020 How often do you attend quaker or pentecostalism serv ices? Never 01/09/2020 Do [...] Recorded Do you need help finding a [employer] career center and/or a training program? No [...] Description 5 2:40 PM EDT Support Visit [facility] - Pre Admit [address] [place] [address] 5 10:00 AM EDT Hospital Encounter [facility] - Endoscopy [address] [place] [address] Michael Steiner, DO [address] [place] [address] Microcytic anemia (Primary Dx) 5 10:00 AM EDT - 5 11:00 AM EDT Surgery [facility] - Endoscopy [address] [place] [address] Michael Steiner, DO [address] [facility] [place] [address] ESOPHAGOGASTRODUODENOSCOPY DIAGNOSTIC [98166 (CPT )] 5 7:30 AM EDT Appointment [facility] - Cardiovascular [address] [place] [address] Inez Cook, MOTORCYCLE REPAIR SHOP SUPERVISOR-ANIMAL HUMANE AGENT SUPERVISOR [address] [place] [address] 5 3:30 PM EDT Office Visit [facility] - Heart Failure Clinic [address] [place] [address] Risa Summers MD [address] [place] [address] 5 1:30 PM EDT Office Visit [facility]icians Internal Medicine - Family Medicine [address] [place] [address] Michael Steiner, DO [address] [place] [address] Scheduled Procedures Name Priority Associated Diagnoses Date/Ti [...] documented as of this encounter Care Teams Horse Shoer Relationship Specialty Start Date End Date Michael Steiner DO [address] [place] [address] PCP - General Internal Medicine 12/17/23 documented as of this encounter
--- OUTSIDE RECORDS SUMMARY | 2024-12-19 13:37 | XMS_ITS | Encounter Summary ---
Author Organization [facility] Address [id number] [address] [place] [address] Care Team Providers Care Tomato Pulper Operator Name Role Phone Michael Steiner DO Primary Care Provider [phone] Reason for Visit * Reason Comments Med Refill Encounter Details Date Type Department Care Team (Late st Contact Info) Description 09/28/2020 Refill [facility] Cardiothoracic Surgeons - [place] [address] [place] [address] Tiffany Luna APRN-OBSTETRICS TEACHER [address] [facility] [facility] [place], [place] [address] Social History Tobacco Use Types Packs/Day Years [...] How often do you attend christianity or nondenominational serv ices? Never 01/09/2020 Do you belong [...] Support Visit [facility] - Pre Admit [address] [place] [address] [phone] 5 10:00 AM EDT Hospital Encounter [facility] - Endoscopy [address] [facility] [place] [address] Michael Steiner, DO [address] [place] [address] Microcytic anemia (Primary Dx) 5 10:00 AM EDT - 5 11:00 AM EDT Surgery [facility] - Endoscopy [address] [place] [address] Michael Steiner, DO [address] [place] [address] ESOPHAGOGASTRODUODENOSCOPY DIAGNOSTIC [00874 (CPT )] 5 7:30 AM EDT Appointment [facility] - Cardiovascular [address] [place] [address] Inez Cook, TUTOR COORDINATOR-OBSTETRICS TEACHER [address] [place] [address] 5 3:30 PM EDT Office Visit [facility] - Heart Failure Clinic [address] [place] [address] Risa Summers MD [address] [place] [address] 5 1:30 PM EDT Office Visit [facility]icians Internal Medicine - Family Medicine [address] [place] [address] Michael Steiner, DO [address] [place] [address] Scheduled Procedures Name Priority Associated Diagnoses Date/Ti ca ESOPHAGOGASTRODUODENOSCOPY DIAGNOSTIC microcytic anemia 12/20/2024 10:00 AM [...] documented as of this encounter Care Teams Tomato Pulper Operator Relationship Specialty Start Date End Date Michael Steiner DO [address] [place] [address] PCP - General Internal Medicine 12/17/23 documented as of this encounter
--- OUTSIDE RECORDS SUMMARY | 2024-12-19 13:37 | XMS_ITS | Encounter Summary ---
Author Organization [employer] Sys tem Address [facility]-[id number] [address] [place] [address] Care Team Providers Care Sales And Catering Coordinator Name Role Phone Obdulia Michael Janae CABRERA Primary Care Provider [phone] Reason for Visit * Reason Onset Date Comments Leg Swelling 07/21/2022 Encounter Details Date Type Department Care Team (Late st Contact Info) Description 07/21/2022 Telephone [facility] Cardiology [address] [place] [address] Mahsa Fam RN Leg Swelling [...] week 01/09/2020 How often do you attend jainism or uatsdin serv ices? Never 01/09/2020 Do you belong to any clubs o r organizations such as jainism groups, unions, fraternal or athletic groups, or [...] Recorded Do you need help finding a [employer] career center and/or a training program? No [...] Description 5 2:40 PM EDT Support Visit [facility] - Pre Admit [address] [place] [address] 5 10:00 AM EDT Hospital Encounter [facility] - Endoscopy [address] [place] [address] Michael Steiner, DO [address] [place] [address] Microcytic anemia (Primary Dx) 5 10:00 AM EDT - 5 11:00 AM EDT Surgery [facility] - Endoscopy [address] [place] [address] Michael Steiner, DO [address] [place] [address] ESOPHAGOGASTRODUODENOSCOPY DIAGNOSTIC [94723 (CPT )] 7:30 AM EDT Appointment [facility] - Cardiovascular [address] [place] [address] Inez Cook, COMMERCIAL LOAN COORDINATOR-AIRPLANE RENTAL CLERK [address] [place] [address] 5 3:30 PM EDT Office Visit [facility] - Heart Failure Clinic [address] [place] [address] Risa Summers MD [address] [place], [place] [address] 5 1:30 PM EDT Office Visit [facility]icians Internal Medicine - Family Medicine [address] [place] [address] Michael Steiner DO [address] [place] [address] Scheduled Procedures Name Priority Associated Diagnoses Date/Ti co ESOPHAGOGASTRODUODENOSCOPY DIAGNOSTIC microcytic anemia 12/20/2024 10:00 AM EDT ESOPHAGOGASTRODUODENOSCOPY DIAGNOSTIC Microcytic anemia documented as of this encounter Results * (ABNORMAL) Basic Metabolic Panel (07/25/2022 11:24 AM EDT) Sodium 138 134 - 146 mmol/L 07/25/2022 3:16 PM EDT [facility] Potassium, Bld 2.8(L) 3.5 - 5.0 mmol/L 07/25/2022 3:16 PM EDT [facility] Chloride 93(L) 98 - 109 mmol/L 07/25/2022 3:16 PM EDT [facility] CO2 29 22 - 32 mmol/L 07/25/2022 3:16 PM EDT [facility] Anion gap 16(H) 5 - 15 mmol/L 07/25/2022 3:16 PM EDT [facility] BUN 29(H) 5 - 23 mg/dL 07/25/2022 3:16 PM EDT [facility] Creatinine 2.20(H) 0.40 - 1.00 mg/dL 07/25/2022 3:16 PM EDT [facility] Comment:METHOD TRACEABLE TO IDMS STANDARD Glucose 135(H) 65 - 99 mg/dL 07/25/2022 3:16 PM EDT [facility] Calcium 10.8(H) 8.5 - 10.5 mg/dL 07/25/2022 3:16 PM EDT [facility] eGFR (CKD-EPI)non-ra ce dependent 25(L) >59 ml/min/1.7 3sq.m 07/25/2022 3:16 PM EDT [facility] Comment: Reported eGFR is based on the CKD-EPI 2020 equation that does not use a race coefficient. PLASMA 07/25/2022 11:2 4 AM EDT 07/25/2022 11:25 AM EDT us Nikolay Garcia PA-C LAB BLOOD ORDERABLES Fin al Result SKYLER [facility] [address] [facility], [address] [place] [address] documented in this encounter Visit Diagnoses Diagnosis Shortness of breath- Primary Microcytic anemia- Primary Unspecified iron deficiency anemia [...] as of this encounter Care Teams Sales And Catering Coordinator Relationship Specialty Start Date End Date Michael Steiner DO [address] [place] [address] PCP - General Internal Medicine 12/17/23 documented as of this encounter
--- OUTSIDE RECORDS SUMMARY | 2024-12-19 13:37 | XMS_ITS | Encounter Summary ---
Author Organization [employer] Address [id number] [address] [place] [address] Care Team Providers Care Special Client Bus Driver Name Role Phone Joansunshine Michael Janae CABRERA Primary Care Provider [phone] Encounter Details Date Type Department Care Team (Late st Contact Info) Description 08/31/2020 Orders Only [facility] Cardiology [address] [place] [address] Sharon Beaver, VICTOR M Social History Tobacco [...] week 01/09/2020 How often do you attend amish or shinto serv ices? Never 01/09/2020 Do you belong to any clubs o r organizations such as amish groups, unions, fraternal or athletic groups, or [...] Recorded Do you need help finding a [employer] center and/or a training program? No 01/09/2020 [...] Description 5 2:40 PM EDT Support Visit [facility] - Pre Admit [address] [place] [address] 5 10:00 AM EDT Hospital Encounter [facility] - Endoscopy [address] [place] [address] Michael Steiner, DO [address] [place] [address] Microcytic anemia (Primary Dx) 5 10:00 AM EDT - 5 11:00 AM EDT Surgery [facility] - Endoscopy [address] [place] [address] Michael Steiner, DO [address] [facility] [place] [address] ESOPHAGOGASTRODUODENOSCOPY DIAGNOSTIC [01510 (CPT )] 5 7:30 AM EDT Appointment [facility] - Cardiovascular [address] [place] [address] Inez Cook, CERAMIC TILE SETTER-FORGING ROLL OPERATOR [address] [place] [address] 5 3:30 PM EDT Office Visit [facility] - Heart Failure Clinic [address] [place] [address] Risa Summers MD [address] [place] [address] 5 1:30 PM EDT Office Visit [facility] Physicians Internal Medicine - Family Medicine [address] [facility] [place] [address] Michael Steiner, DO [address] [place] [address] Scheduled Procedures Name Priority Associated Diagnoses Date/Ti [...] as of this encounter Care Teams Special Client Bus Driver Relationship Specialty Start Date End Date Michael Steiner DO [address] [place] [address] PCP - General Internal Medicine 12/17/23 documented as of this encounter
--- OUTSIDE RECORDS SUMMARY | 2024-12-19 13:37 | XMS_ITS | Encounter Summary ---
Author Organization [employer] Address [id number] [address] [place] [address] Care Team Providers Care Map Plotter Name Role Phone JoanMichael gonsalez Janae CABRERA Primary Care Provider [phone] Encounter Details Date Type Department Care Team (Late st Contact Info) Description 09/05/2020 Orders Only [facility] Cardiology [address] [place] [address] Sharon Beaver RN Edema, unspecified type (Primary [...] week 01/09/2020 How often do you attend scientology or episcopal serv ices? Never 01/09/2020 Do you belong to any clubs o r organizations such as scientology groups, unions, fraternal or athletic groups, or [...] Recorded Do you need help finding a [employer] career center and/or a training program? No [...] Description 5 2:40 PM EDT Support Visit [facility] - Pre Admit [address] [place] [address] 5 10:00 AM EDT Hospital Encounter [facility] - Endoscopy [address] [place] [address] Michael Steiner, DO [address] [place] [address] Microcytic anemia (Primary Dx) 5 10:00 AM EDT - 5 11:00 AM EDT Surgery [facility] - Endoscopy [address] [place] [address] Michael Steiner, DO [address] [place] [address] ESOPHAGOGASTRODUODENOSCOPY DIAGNOSTIC [59980 (CPT )] 5 7:30 AM EDT Appointment [facility] - Cardiovascular [address] [place] [address] Inez Cook, COLLECTIONS MANAGER-CONTACT LENS POLISHER [address] [place] [address] 5 3:30 PM EDT Office Visit [facility] - Heart Failure Clinic [address] [place] [address] Risa Summers MD [address] [place] [address] 5 1:30 PM EDT Office Visit [facility]icians Internal Medicine - Family Medicine [address] [place] [address] Michael Steiner, DO [address] [place] [address] Scheduled Procedures Name Priority Associated Diagnoses Date/Ti mt ESOPHAGOGASTRODUODENOSCOPY DIAGNOSTIC microcytic anemia 12/20/2024 10:00 AM EDT ESOPHAGOGASTRODUODENOSCOPY DIAGNOSTIC Microcytic anemia documented as of this encounter Visit Diagnoses Diagnosis Edema, unspecified type- Primary Microcytic anemia- Primary Unspecified iron deficiency [...] documented as of this encounter Care Teams Map Plotter Relationship Specialty Start Date End Date Michael Steiner DO [address] [place] [address] PCP - General Internal Medicine 12/17/23 documented as of this encounter
--- OUTSIDE RECORDS SUMMARY | 2024-12-19 13:37 | XMS_ITS | Encounter Summary ---
Author Organization [facility] Address [id number] [address] [place] [address] Care Team Providers Care Diesel Service Journeyman Name Role Phone Joansunshine Michael Janae CABRERA Primary Care Provider [phone] Reason for Visit * Reason Onset Date Comments Med Refill 08/27/2020 Encounter Details Date Type Department Care Team (Late st Contact Info) Description 08/27/2020 Refill [facility] [address] [place] [address] Mahsa Fam RN Med Refill Social History [...] How often do you attend scientologist or bahai serv ices? Never 01/09/2020 Do [...] Recorded Do you need help finding a [employer] career center and/or a training program? No [...] 08/27/2020 12:08 PM EDT Received p/c from [facility] that pt needs refill for atorvastatin 80 mg and Order for Knee high support stockings documented in this encounter Plan of Treatment Upcoming Encounters Date Type Department Care Team (Latest Contact Info) Description 5 2:40 PM EDT Support Visit [facility] - Pre Admit [address] [place] [address] 5 10:00 AM EDT Hospital Encounter [facility] - Endoscopy [address] [place] [address] Michael Steiner, [address] [place] [address] Microcytic anemia (Primary Dx) 5 10:00 AM EDT - 5 11:00 AM EDT Surgery [facility] - Endoscopy [address] [place] [address] Michael Steiner, [address] [address] ESOPHAGOGASTRODUODENOSCOPY DIAGNOSTIC [[id number] (CPT )] 5 7:30 AM EDT Appointment [facility] - Cardiovascular [address] [place] [address] Inez Cook, REAL ESTATE ATTORNEY-FIRE SPRINKLER APPARATUS INSPECTOR [address] [place] [address] 5 3:30 PM EDT Office Visit [facility] - Heart Failure Clinic [address] [place] [address] Risa Summers MD [address] [place] [address] 5 1:30 PM EDT Office Visit [facility]icians Internal Medicine - Family Medicine [facility] [place] [address] Michael Steiner, [address] [address] Scheduled Procedures Name Priority Associated Diagnoses Date/Ti me ESOPHAGOGASTRODUODENOSCOPY DIAGNOSTIC microcytic anemia 12/20/2024 10:00 AM EDT ESOPHAGOGASTRODUODENOSCOPY DIAGNOSTIC Microcytic anemia documented as of this encounter Visit Diagnoses Diagnosis ASCVD (arteriosclerotic cardiovascular disease)- Primary Unspecified cardiovascular disease NSTEMI (non-ST elevated myocardial infarction) ([facility]) Acute myocardial infarction, subendocardial infarction, episode of care unspecified Microcytic anemia- Primary Unspecified iron deficiency anemia [...] documented as of this encounter Care Teams Diesel Service Journeyman Relationship Specialty Start Date End Date Michael Steiner DO [address] [place] [address] PCP - General Internal Medicine 12/17/23 documented as of this encounter
--- OUTSIDE RECORDS SUMMARY | 2024-12-19 13:37 | XMS_ITS | Encounter Summary ---
Author Organization [employer] [facility] Address [id number] [address] [place] [address] Care Team Providers Care Information Management Specialist Name Role Phone Michael Steiner DO Primary Care Provider Encounter Details Date Type Department Care Team (Late st Contact Info) Description 11/06/2023 Telephone [facility] Internal Medicine - Family Medicine [address] [place] [address] PrestonMonica lo, BOSS MINER Social History Tobacco Use Types Packs/Day Years Used Date Smoking Tobacco: Former Cigarettes 1 40 0 09/1981 - 09/2021 Smokeless Tobacco: Never Comments:5-6 cigerettes a da y Alcohol Use Standard Drinks/Week Comments Not Currently 0 (1 standard drink = 0.6 oz pur e alcohol) last use 15 years ago [facility] Utilities Answer Date Recorded In the past 12 months has [employer], gas, oil, or water [employer] threatened to shut off services in your [...] 07/25/2023 How often do you attend [facility] or moravian services? More than 4 times [...] Answer Date Recorded Total Score 0 11/02/2023 [facility] of Occupat ional Health - Occupational [...] Description 5 2:40 PM EDT Support Visit [facility] - Pre Admit [address] [place] [address] 5 10:00 AM EDT Hospital Encounter [facility] - Endoscopy [address] [place] [address] Michael Steiner, DO [address] [place] [address] Microcytic anemia (Primary Dx) 5 10:00 AM EDT - 5 11:00 AM EDT Surgery [facility] - Endoscopy [address] [place] [address] Michael Steiner, DO [address] [place] [address] ESOPHAGOGASTRODUODENOSCOPY DIAGNOSTIC [30275 (CPT )] 5 7:30 AM EDT Appointment [facility] - Cardiovascular [address] [place] [address] Inez Cook, EXECUTIVE PILOT-SALESPERSON WOMEN'S HATS [address] [place] [address] 5 3:30 PM EDT Office Visit [facility] - Heart Failure Clinic [address] [place] [address] Risa Summers MD [address] [place] [address] 1:30 PM EDT Office Visit [facility] Internal Medicine - Family Medicine [address] [place] [address] Michael Steiner DO [address] [place] [address] Scheduled Procedures Name Priority Associated Diagnoses Date/Ti [...] as of this encounter Care Teams Information Management Specialist Relationship Specialty Start Date End Date Michael Steiner DO [address] [place] [address] PCP - General Internal Medicine 12/17/23 documented as of this encounter
--- OUTSIDE RECORDS SUMMARY | 2024-12-19 13:37 | XMS_ITS | Encounter Summary ---
Author Organization [facility] Address [id number] [address] [place] [address] Care Team Providers Care Plant Associate Name Role Phone Joansunshine Michael Janae CABRERA Primary Care Provider [phone] Reason for Visit * Reason Onset Date Comments Med Refill 12/24/2023 Encounter Details Date Type Department Care Team (Late st Contact Info) Description 12/24/2023 Refill [facility] Internal Medicine - Family Medicine [address] [place] [phone] Monica Johnston CMA Social History Tobacco Use [...] In the past 12 months has th [employer], gas, oil, or water company threatened [...] 07/25/2023 How often do you attend [facility] or orthodox services? More than 4 times per [...] Answer Date Recorded Total Score 0 11/02/2023 [facility] of Occupat ional Health - [...] Recorded Do you need help finding a [facility] career center and/or a training program? [...] Department Care Team (Latest Contact Info) Description 2:40 PM EDT Support Visit [facility] - Pre Admit [address] [place] [address] 08/26/202 5 10:00 AM EDT Hospital Encounter [facility] - Endoscopy [address] [place] [address] Michael Steiner, [address] [place] [address] Microcytic anemia (Primary Dx) 5 10:00 AM EDT - 5 11:[address] [facility] - Endoscopy [address] [place] [address] Michael Steiner, [address] [place] [address] ESOPHAGOGASTRODUODENOSCOPY DIAGNOSTIC [[id number] (CPT )] 5 7:[address] [facility] - Cardiovascular [address] [place] [address] Inez Cook, GRINDER SET UP OPERATOR EXTERNAL-SUPERVISOR POST WAVE [address] [place] [address] 5 3:30 PM EDT Office Visit [facility] - Heart Failure Clinic [address] [place] [address] Risa Summers MD [address] [place] [address] 5 1:30 PM EDT Office Visit [facility] Physicians Internal Medicine - Family Medicine [address] [place] [address] Michael Steiner, DO [address] [place] [address] Scheduled Procedures Name Priority Associated Diagnoses Date/Ti me ESOPHAGOGASTRODUODENOSCOPY DIAGNOSTIC microcytic anemia 12/20/2024 10:00 AM EDT ESOPHAGOGASTRODUODENOSCOPY DIAGNOSTIC Microcytic anemia documented as of this encounter Visit Diagnoses Not on filedocumented in this encounter Additional Health Concerns Assessment Noted Time PHQ-9 Depression Total Score: 0 11/02/19 3:42 PM EDT documented as of this encounter Care Teams Plant Associate Relationship Specialty Start Date End Date Michael Steiner DO [address] [place] [phone] PCP - General Internal Medicine 12/17/23 documented as of this encounter
--- OUTSIDE RECORDS SUMMARY | 2024-12-19 13:37 | XMS_ITS | Encounter Summary ---
Author Organization [facility] Address [id number] [address] [place] [address] Care Team Providers Care Wharf Labourer Name Role Phone Michael Steiner DO Primary Care Provider Encounter Details Date Type Department Care Team (Late st Contact Info) Description 11/20/2023 Orders Only [facility] Internal Medicine - Family Medicine [address] [place] [address] Michael Steiner DO [address] [place] [address] Social History Tobacco Use Types Packs/Day Years Used Date Smoking Tobacco: Former Cigarettes 1 40 0 09/1981 - 09/2021 Smokeless Tobacco: Never Comments:5-6 cigerettes a da y Alcohol Use Standard Drinks/Week Comments Not Currently 0 (1 standard drink = 0.6 oz pur e alcohol) last use 15 years ago [facility] Utilities Answer Date Recorded In the past 12 months has [employer], gas, oil, or water company threatened [...] often do you attend chur ch or advent services? More than 4 times [...] Answer Date Recorded Total Score 0 11/02/2023 [facility] of Occupat ional Health [...] Do you need help finding a [facility] career center and/or a training program? [...] Description 5 2:40 PM EDT Support Visit [facility] - Pre Admit [address] [place] [address] 5 10:00 AM EDT Hospital Encounter [facility] - Endoscopy [address] [place] [address] Michael Steiner, DO [address] [place] [address] Microcytic anemia (Primary Dx) 5 10:00 AM EDT - 5 11:00 AM EDT Surgery [facility] - Endoscopy [address] [place] [address] Michael Steiner, DO [address] [place] [address] ESOPHAGOGASTRODUODENOSCOPY DIAGNOSTIC [[id number] (CPT )] 5 7:30 AM EDT Appointment [facility] - Cardiovascular [address] [place] [address] Inez Cook, SCREEDMAN-SOCIAL MEDIA MARKETING MANAGER [address] [facility] [place] [address] 5 3:30 PM EDT Office Visit [facility] - Heart Failure Clinic [address] [place] [address] Risa Summers MD [address] [place] [address] 5 1:30 PM EDT Office Visit [facility]icians Internal Medicine - Family Medicine [address] [place] [address] Michael Steiner DO [address] [place] [address] Scheduled Procedures Name Priority Associated Diagnoses Date/Ti [...] documented as of this encounter Care Teams Wharf Labourer Relationship Specialty Start Date End Date Michael Steiner DO [address] [place] [address] PCP - General Internal Medicine 12/17/23 documented as of this encounter
--- OUTSIDE RECORDS SUMMARY | 2024-12-19 13:37 | XMS_ITS | Encounter Summary ---
Author Organization [facility] Address [id number] [address] [place] [address] Care Team Providers Care Education Liaison Name Role Phone Michael Steiner DO Primary Care Provider [phone] Encounter Details Date Type Department Care Team (Late st Contact Info) Description 09/04/2022 [facility] [address] [facility] [address] [place] [address] Cynthia Buchanan, DIRECTOR INVESTMENT BANKING-FORKLIFT TECHNICIAN [address] [place], [place] [address] Social History Tobacco Use Types Packs/Day Years [...] week 01/09/2020 How often do you attend protestant or scientologist serv ices? Never 01/09/2020 Do you belong [...] Recorded Do you need help finding a [employer] career center and/or a training program? No [...] Description 5 2:40 PM EDT Support Visit [facility] - Pre Admit [address] [place] [address] 5 10:00 AM EDT Hospital Encounter [facility] - Endoscopy [address] [place] [address] Michael Steiner, DO [address] [place] [address] Microcytic anemia (Primary Dx) 5 10:00 AM EDT - 5 11:00 AM EDT Surgery [facility] - Endoscopy [address] [place] [address] Michael Steiner, DO [address] [facility] [place] [address] ESOPHAGOGASTRODUODENOSCOPY DIAGNOSTIC [[id number] (CPT )] 5 7:30 AM EDT Appointment [facility] - Cardiovascular [address] [place] [address] Inez Cook, DIRECTOR INVESTMENT BANKING-FORKLIFT TECHNICIAN [address] [place] [address] 5 3:30 PM EDT Office Visit [facility] - Heart Failure Clinic [address] [place] [address] Risa Summers MD [address] [place] [address] 5 1:30 PM EDT Office Visit [facility] Physicians Internal Medicine - Family Medicine [address] [place] [address] Michael Steiner, DO [address] [place] [address] Scheduled Procedures Name Priority Associated Diagnoses Date/Ti [...] documented as of this encounter Care Teams Education Liaison Relationship Specialty Start Date End Date Michael Steiner DO [address] [place] [address] PCP - General Internal Medicine 12/17/23 documented as of this encounter
--- OUTSIDE RECORDS SUMMARY | 2024-12-19 13:37 | XMS_ITS | Encounter Summary ---
Author Organization [employer] [facility] Address [id number] [address] [place] [address] Care Team Providers Care Rail Tractor Operator Name Role Phone Michael Steiner DO Primary Care Provider [phone] Reason for Referral * Misc (Routine) - Pending Review Specialty Diagnoses / Procedures Referred By Contac t Referred To Contact Diagnoses Chronic respiratory failure with hypoxia and hypercapnia (CMS-HCC) Chronic heart failure with preserved ejection fraction (CMS-HCC) Procedures Oxygen Therapy Michael Steiner DO [address] [place] [address] Phone: tel: fax: Referral ID Status Reason Start Date Expiration Date V isits Requested Visits Authorized [id number] Pending Review 12/30/2023 12/29/2024 1 1 Encounter Details Date Type Department Care Team (Late st Contact Info) Description 12/30/2023 Orders Only [facility] Internal Medicine - Family Medicine [address] [place] [address] Michael Steiner DO [address] [place] [address] Chronic respiratory failure with hypoxia and hypercapnia [...] e alcohol) last use 15 years ago [facility] Utilities Answer Date Recorded In the past 12 months has e [employer], gas, oil, or water [employer] threatened to shut off services in your [...] Answer Date Recorded Total Score 0 11/02/2023 [facility] of Occupat ional Health - Occupational Stress [...] Info) Description 2:40 PM EDT Support Visit [facility] - Pre Admit [address] [place] [address] 08/26/202 5 10:00 AM EDT Hospital Encounter [facility] - Endoscopy [address] [place] [address] Michael Steiner, [address] [place] [address] Microcytic anemia (Primary Dx) 5 10:00 AM EDT - 5 11:00 AM EDT Surgery [facility] - Endoscopy [address] [facility] [place] [address] iMchael Steiner, [address] [place] [address] ESOPHAGOGASTRODUODENOSCOPY DIAGNOSTIC [[id number] (CPT )] 5 7:30 AM EDT Appointment [facility] - Cardiovascular [address] [facility] [address] Inez Cook, ASSISTANT PRESS OPERATOR OFFSET-ADVENTURE EDUCATION TEACHER [address] [place] [address] 5 3:30 PM EDT Office Visit [facility] - Heart Failure Clinic [address] [place] [address] Risa Summers MD [address] [place] [address] 5 1:30 PM EDT Office Visit [facility] Internal Medicine - Family Medicine [address] [place] [address] Michael Steiner, DO [address] [place] [address] Scheduled Procedures Name Priority Associated Diagnoses Date/Ti me ESOPHAGOGASTRODUODENOSCOPY DIAGNOSTIC microcytic anemia 12/20/2024 10:00 AM EDT ESOPHAGOGASTRODUODENOSCOPY DIAGNOSTIC Microcytic anemia documented as of this encounter Visit Diagnoses Diagnosis Chronic respiratory failure with hypoxia and hypercapnia (CMS-HCC)- Primary Chronic heart failure with preserved ejection fraction (CMS-HCC) Microcytic anemia- Primary Unspecified iron deficiency anemia documented in this encounter Additional Health Concerns Assessment Noted Time PHQ-9 Depression Total Score: 0 11/02/19 3:42 PM EDT documented as of this encounter Care Teams Rail Tractor Operator Relationship Specialty Start Date End Date Michael Steiner DO [address] [place] [address] PCP - General Internal Medicine 12/17/23 documented as of this encounter
--- OUTSIDE RECORDS SUMMARY | 2024-12-19 13:37 | XMS_ITS | Encounter Summary ---
Author Organization [employer] Address [id number] [address] [place] [address] Care Team Providers Care Record Center Specialist Name Role Phone JoanMichael gonsalez Janae CABRERA Primary Care Provider [phone] Reason for Visit * Reason Onset Date Comments Weight gain and swelling 08/31/2020 Encounter Details Date Type Department Care Team (Late st Contact Info) Description 08/31/2020 Telephone [facility] Cardiology [address] [place] [address] Sharon Beaver, VICTOR M Weight [...] How often do you attend temple or anabaptism serv ices? Never 01/09/2020 Do you belong [...] Recorded Do you need help finding a [employer] career center and/or a training program? No [...] Description 5 2:40 PM EDT Support Visit [facility] - Pre Admit [address] [facility] [place] [address] 5 10:00 AM EDT Hospital Encounter [facility] - Endoscopy [address] [place] [address] Michael Steiner, DO [address] [place] [address] Microcytic anemia (Primary Dx) 5 10:00 AM EDT - 5 11:00 AM EDT Surgery [facility] - Endoscopy [address] [place] [address] Michael Steiner, [address] [place] [address] ESOPHAGOGASTRODUODENOSCOPY DIAGNOSTIC [[id number] (CPT )] 5 7:30 AM EDT Appointment [facility] - Cardiovascular [address] [place] [address] nIez Cook, SPOOL MAKER-GEOPHYSICAL COMPUTER [address] [place] [address] 5 3:30 PM EDT Office Visit [facility] - Heart Failure Clinic [address] [place] [address] Risa Summers MD [address] [place] [address] 5 1:30 PM EDT Office Visit [facility] Internal Medicine - Family Medicine [address] [place] [address] Michael Steiner, DO [address] [place] [address] Scheduled Procedures Name Priority Associated Diagnoses Date/Ti [...] documented as of this encounter Care Teams Record Center Specialist Relationship Specialty Start Date End Date Michael Steiner DO [address] [place] [address] PCP - General Internal Medicine 12/17/23 documented as of this encounter
--- OUTSIDE RECORDS SUMMARY | 2024-12-19 13:37 | XMS_ITS | Encounter Summary ---
Author Organization [employer] s tem Address [id number] [address] [place] [address] Care Team Providers Care Stump Blower Name Role Phone Michael Steiner DO Primary Care Provider Encounter Details Date Type Department Care Team (Late st Contact Info) Description 11/06/2023 Orders Only [facility] Internal Medicine - Family Medicine [address] [place] [address] Michael Steiner DO [address] [place] [address] Chronic heart failure with preserved ejection fraction ([facility]-HCC) (Primary Dx) Social History Tobacco Use Types Packs/Day Years Used Date Smoking Tobacco: Former Cigarettes 1 40 0 09/1981 - 09/2021 Smokeless Tobacco: Never Comments:5-6 cigerettes a da y Alcohol Use Standard Drinks/Week Comments Not Currently 0 (1 standard drink = 0.6 oz pur e alcohol) last use 15 years ago [facility] Utilities Answer Date Recorded In the past 12 months has [employer], gas, oil, or water [employer] threatened to shut off services in your [...] any clubs o r organizations such as rastafarian groups, unions, fraternal or athletic groups, or [...] Answer Date Recorded Total Score 0 11/02/2023 [facility] [employer] of Occupat ional Health - Occupational Stress [...] [facility] [address] [place] [address] 5 10:00 AM EDT Hospital Encounter [facility] - Endoscopy [address] [place] [address] Michael Steiner, DO [address] [place] [address] Microcytic anemia (Primary Dx) 5 10:00 AM EDT - 5 11:00 AM EDT Surgery [facility] - Endoscopy [address] [place] [address] Michael Setiner, DO [address] [place] [address] ESOPHAGOGASTRODUODENOSCOPY DIAGNOSTIC [97898 (CPT )] 5 7:30 AM EDT Appointment [facility] - Cardiovascular [address] [facility] [address] Inez Cook, YARD CLERK-PURSE SEINER [address] [place] [address] 5 3:30 PM EDT Office Visit [facility] - Heart Failure Clinic [address] [place] [address] Risa Summers MD [address] [place] [address] 5 1:30 PM EDT Office Visit [facility] Physicians Internal Medicine - Family Medicine [address] [place] [address] Michael Steiner DO [address] [place] [address] Scheduled Procedures Name Priority Associated Diagnoses Date/Ti me ESOPHAGOGASTRODUODENOSCOPY DIAGNOSTIC microcytic anemia 12/20/2024 10:00 AM EDT ESOPHAGOGASTRODUODENOSCOPY DIAGNOSTIC Microcytic anemia documented as of this encounter Visit Diagnoses Diagnosis Chronic heart failure with preserved ejection fraction (CMS-HCC)- Primary Microcytic anemia- Primary Unspecified iron deficiency anemia documented in this encounter Additional Health Concerns Infection Onset Date Last Indicated Resolved Time COVID-19 Rule-Out 12/17/2023 12/17/2023 12/17/2023 1:50 PM EDT Assessment Noted Time PHQ-9 Depression Total Score: 0 11/02/19 24 3:42 PM EDT documented as of this encounter Care Teams Stump Blower Relationship Specialty Start Date End Date Michael Steiner DO [address] [place] [address] PCP - General Internal Medicine 12/17/23 documented as of this encounter
--- OUTSIDE RECORDS SUMMARY | 2024-12-19 13:38 | XMS_ITS | Encounter Summary ---
Author Organization [facility] Address [id number] [address] [place] [address] Care Team Providers Care Senior Web Architect Name Role Phone Michael Steiner DO Primary Care Provider [phone] Reason for Referral * Vascular (Routine) - Closed Specialty Diagnoses / Procedures Referred By Rick rahman Referred To Contact Diagnoses Acute pulmonary embolism without acute cor pulmonale, unspecified pulmonary embolism type ([facility]) Procedures Vas venous duplex lwr bilateral Michael Steiner DO [address] [place] [address] Phone: tel: fax: [facility] [address] [place] [address] Phone: tel: Referral ID Status Reason Start Date Expiration Date Visits Re quested Visits Authorized [id number] Closed 08/31/2023 08/30/2024 1 1 * Diagnostic Imaging (Routine) - Closed Specialty Diagnoses / Procedures Referred By Rick rahman Referred To Contact Radiology Diagnoses Closed wedge compression fracture of T6 vertebra with routine healing Procedures MR thoracic spine without contrast Michael Steiner DO [address] [place] [address] Phone: tel: fax:[phone] Referral ID Status Reason Start Date Expiration Date Visits Re quested Visits Authorized [id number] Closed 08/31/2023 08/30/2024 1 1 Encounter Details Date Type Department Care Team (Late st Contact Info) Description 08/31/2023 Orders Only [facility] Internal Medicine - Family Medicine [address] [place] [address] Mcihael Steiner DO [address] [place] [address] Closed wedge compression fracture of T6 vertebra with routine healing (Primary Dx); Acute pulmonary embolism without acute cor pulmonale, unspecified pulmonary embolism type ([facility]) Social History Tobacco Use Types Packs/Day Years Used Date Smoking Tobacco: Former Cigarettes 1 40 0 09/1981 - 09/2021 Smokeless Tobacco: Former Chew Comments:5-6 cigerettes a da y Alcohol Use Standard Drinks/Week Comments Not Currently 0 (1 standard drink = 0.6 oz pur e alcohol) last use 15 years ago [facility] Utilities Answer Date Recorded In the past 12 months has [employer], gas, oil, or water [employer] threatened to shut off services in your [...] often do you attend chur ch or presybeterian services? More than 4 times per year 07/25/2023 Do you belong to any clubs o r organizations such as yazdanism groups, unions, fraternal or athletic groups, or [...] Answer Date Recorded Total Score 0 08/10/2023 [facility] of Occupat ional Health - [...] Recorded Do you need help finding a [facility] career [facility] and/or a training [...] Description 5 2:40 PM EDT Support Visit [facility] - Pre Admit [address] [place] [address] 5 10:00 AM EDT Hospital Encounter [facility] - Endoscopy [address] [place] [address] Michael Steiner, DO [address] [place] [address] Microcytic anemia (Primary Dx) 5 10:00 AM EDT - 5 11:00 AM EDT Surgery [facility] - Endoscopy [address] [place] [address] Michael Steiner, DO [address] [place] [address] ESOPHAGOGASTRODUODENOSCOPY DIAGNOSTIC [[id number] (CPT )] 5 7:30 AM EDT Appointment [facility] - Cardiovascular [address] [place] [address] Inez Cook, PAYROLL SUPERVISOR-PROGRAM EVALUATION CONSULTANT [address] [place] [address] 5 3:30 PM EDT Office Visit [facility] - Heart Failure Clinic [address] [place] [address] Risa Summers MD [address] [place] [address] 1:30 PM EDT Office Visit [facility] Internal Medicine - Family Medicine [address] [place] [address] Michael Steiner DO [address] [place] [address] Scheduled Procedures Name Priority Associated Diagnoses Date/Ti [...] on 09/11/2023 1:40 PM Michael Steiner DO [facility] MRI ORDERABLES Final Result documented in this encounter Visit Diagnoses Diagnosis Closed wedge compression fracture of T6 vertebra with routine healing- Primary Acute pulmonary embolism without acute cor pulmonale, unspecified pulmonary embolism type (CMS-HCC) Closed wedge compression fracture of T6 vertebra with routine healing Acute pulmonary embolism without acute cor pulmonale, unspecified pulmonary embolism type ([facility]-HCC) Microcytic anemia- Primary Unspecified iron deficiency anemia documented in this encounter Additional Health Concerns Infection Onset Date Last Indicated Resolved Time COVID-19 Rule-Out 12/17/2023 12/17/2023 12/17/2023 1:50 PM EDT Assessment Noted Time PHQ-9 Depression Total Score: 0 08/10/19 24 1:05 PM EDT documented as of this encounter Care Teams Senior Web Architect Relationship Specialty Start Date End Date Michael Steiner DO [address] [place] [id number] PCP - General Internal Medicine 12/17/23 documented as of this encounter
--- OUTSIDE RECORDS SUMMARY | 2024-12-19 13:38 | XMS_ITS | Encounter Summary ---
Author Organization [employer] s tem Address [id number] [address] [place] [address] Care Team Providers Care Rotary Adjuster Name Role Phone Michael Steiner DO Primary Care Provider [phone] Encounter Details Date Type Department Care Team (Late st Contact Info) Description 09/28/2023 [facility]phone [facility] - Family Medicine [address] [place] [address] PrestonMonica lo, WEB MARKETING MANAGER Social History Tobacco Use Types Packs/Day Years Used Date Smoking Tobacco: Former Cigarettes 1 40 0 09/1981 - 09/2021 Smokeless Tobacco: Never Comments:5-6 cigerettes a da y Alcohol Use Standard Drinks/Week Comments Not Currently 0 (1 standard drink = 0.6 oz pur e alcohol) last use 15 years ago [facility] Utilities Answer Date Recorded In the past 12 months has [employer], gas, oil, or water [employer] threatened to shut off services in your [...] How often do you attend [facility] or advent services? More than 4 times [...] Answer Date Recorded Total Score 0 09/30/2023 [facility] of Occupat ional Health - Occupational [...] Info) Description 2:40 PM EDT Support Visit [facility] - Pre Admit [address] [place] [address] 5 10:00 AM EDT Hospital Encounter [facility] - Endoscopy [address] [place] [address] Michael Steiner, DO [address] [place] [address] Microcytic anemia (Primary Dx) 5 10:00 AM EDT - 5 11:00 AM EDT Surgery [facility] - Endoscopy [address] [place] [address] Michael Steiner, [address] [place] [address] ESOPHAGOGASTRODUODENOSCOPY DIAGNOSTIC [[id number] (CPT )] 5 7:30 AM EDT Appointment [facility] - Cardiovascular [address] [place] [address] Inez Cook, MATERIAL YARD CLERK-ACCORDION MAKER [address] [place] [address] 5 3:30 PM EDT Office Visit [facility] - Heart Failure Clinic [address] [place] [address] Risa Summers MD [address] [place] [address] 5 1:30 PM EDT Office Visit [facility] Internal Medicine - Family Medicine [address] [place] [address] Michael Steiner, DO [address] [place] [address] Scheduled Procedures Name Priority Associated Diagnoses Date/Ti [...] documented as of this encounter Care Teams Rotary Adjuster Relationship Specialty Start Date End Date Michael Steiner DO [address] [place] [phone] PCP - General Internal Medicine 12/17/23 documented as of this encounter
--- OUTSIDE RECORDS SUMMARY | 2024-12-19 13:38 | XMS_ITS | Encounter Summary ---
Author Organization [facility] Address [id number] [address] [place] [address] Care Team Providers Care Glaucoma Specialist Name Role Phone JoanMichael gonsalez Janae CABRERA Primary Care Provider [phone] Reason for Visit * Reason Onset Date Comments Transition Of Care 09/01/2023 Encounter Details Date Type Department Care Team (Late st Contact Info) Description 09/01/2023 [facility]phone [facility] [address] [facility] [place] [address] Poornima Bonner, VICTOR M Transition Of Care Social History Tobacco Use Types Packs/Day Years Used Date Smoking Tobacco: Former Cigarettes 1 40 0 09/1981 - 09/2021 Smokeless Tobacco: Former Chew Comments:5-6 cigerettes a da y Alcohol Use Standard Drinks/Week Comments Not Currently 0 (1 standard drink = 0.6 oz pur e alcohol) last use 15 years ago [facility] Utilities Answer Date Recorded In the past 12 months has th [employer], gas, oil, or water company threatened [...] Answer Date Recorded Total Score 0 08/10/2023 [facility] of Occupat ional Health - Occupational Stress [...] Recorded Do you need help finding a [facility] career center and/or a training [...] pulmonary embolism type ([facility]) Active Problems: Closed wedge compression fracture of T6 vertebra with routine healing BONY treated with BiPAP Chronic heart failure with preserved ejection fraction ([facility]) Bipolar 2 disorder, major depressive episode ([facility]) Discharge Specialty: Orthopedic and Vascular Name of Discharging Facility: [facility] Date of Facility Discharge: 08/29/23 Date of Interactive Contact and Name of Mask Inspector: Spoke with friend Norma on 09/01/23 Medication [...] Not using the lidoderm patches, is taking [place] but does not take the pain away. [...] management- encouraged use of lidodem patch with [place]. Ice. -Follow up with providers as scheduled [...] Description 5 2:40 PM EDT Support Visit [facility] - Pre Admit [address] [place] [address] 5 10:00 AM EDT Hospital Encounter [facility] - Endoscopy [address] [place] [address] Michael Steiner, DO [address] [place] [address] Microcytic anemia (Primary Dx) 5 10:00 AM EDT - 5 11:00 AM EDT Surgery [facility] - Endoscopy [address] [place] [address] Michael Steiner, DO [address] [place] [address] ESOPHAGOGASTRODUODENOSCOPY DIAGNOSTIC [[id number] (CPT )] 5 7:30 AM EDT Appointment [facility] - Cardiovascular [address] [place] [address] Inez Cook, BATTERY TESTER FIELD-MILANESE KNITTING MACHINE OPERATOR [address] [place] [address] 5 3:30 PM EDT Office Visit [facility] - Heart Failure Clinic [address] [place] [address] Risa Summers MD [address] [place] [address] 5 1:30 PM EDT Office Visit [facility] Internal Medicine - Family Medicine [address] [place] [address] Michael Steiner DO [address] [place] [address] Scheduled Procedures Name Priority Associated Diagnoses Date/Ti [...] documented as of this encounter Care Teams Glaucoma Specialist Relationship Specialty Start Date End Date Michael Steiner DO [address] [place] [address] PCP - General Internal Medicine 12/17/23 documented as of this encounter
--- OUTSIDE RECORDS SUMMARY | 2024-12-19 13:38 | XMS_ITS | Encounter Summary ---
Author Organization [facility] Address [id number] [address] [place] [address] Care Team Providers Care Environmental Journalist Name Role Phone Michael Steiner DO Primary Care Provider [phone] Encounter Details Date Type Department Care Team (Late st Contact Info) Description 10/07/2023 Telephone [facility] [address] [place] [address] Lamar Carlson Social History Tobacco Use Types Packs/Day Years Used Date Smoking Tobacco: Former Cigarettes 1 40 0 09/1981 - 09/2021 Smokeless Tobacco: Never Comments:5-6 cigerettes a da y Alcohol Use Standard Drinks/Week Comments Not Currently 0 (1 standard drink = 0.6 oz pur e alcohol) last use 15 years ago [facility] Utilities Answer Date Recorded In the past 12 months has [employer], gas, oil, or water [employer] threatened to shut off services in your [...] Answer Date Recorded Total Score 0 09/30/2023 [facility] of Occupat ional [...] patient to schedule 6 mo ov with [facility] in January. Patients states they will call back to schedule. documented in this encounter Plan of Treatment Upcoming Encounters Date Type Department Care Team (Latest Contact Info) Description 5 2:40 PM EDT Support Visit [facility] - Pre Admit [address] [place] [address] 5 10:00 AM EDT Hospital Encounter [facility] - Endoscopy [address] [place] [address] Michael Steiner, DO [address] [place], [place] [address] Microcytic anemia (Primary Dx) 5 10:00 AM EDT - 5 11:00 AM EDT Surgery [facility] - Endoscopy [address] [place] [address] [phone] Michael Steiner, [address] [place] [address] ESOPHAGOGASTRODUODENOSCOPY DIAGNOSTIC [[id number] (CPT )] 5 7:30 AM EDT Appointment [facility] - Cardiovascular [address] [place] [address] Inez Cook, JOURNEYMAN MECHANIC-DIVISION ENGINEER [address] [place] [address] 5 3:30 PM EDT Office Visit [facility] - Heart Failure Clinic [address] [place] [address] Risa Summers MD [address] [place], [place] [address] 5 1:30 PM EDT Office Visit [facility] Internal Medicine - Family Medicine [address] [place] [address] Michael Steiner DO [address] [place] [address] Scheduled Procedures Name Priority Associated Diagnoses Date/Ti sd ESOPHAGOGASTRODUODENOSCOPY DIAGNOSTIC microcytic anemia 12/20/2024 10:00 AM EDT ESOPHAGOGASTRODUODENOSCOPY DIAGNOSTIC Microcytic anemia documented as of this encounter Visit Diagnoses Not on filedocumented in this encounter Additional Health Concerns Infection Onset Date Last Indicated Resolved Time COVID-19 Rule-Out 12/17/2023 12/17/2023 12/17/2023 1:50 PM EDT Assessment Noted Time PHQ-9 Depression Total Score: 0 09/30/19 24 1:38 PM EDT documented as of this encounter Care Teams Environmental Journalist Relationship Specialty Start Date End Date Michael Steiner DO [address] [place] [address] PCP - General Internal Medicine 12/17/23 documented as of this encounter
--- OUTSIDE RECORDS SUMMARY | 2024-12-19 13:38 | XMS_ITS | Encounter Summary ---
Author Organization [facility] Address [address] [place] [address] Care Team Providers Care Bacteriologist Fishery Name Role Phone Michael Steiner MD Primary Care Provider [phone] Encounter Details Date Type Department Care Team (Late st Contact Info) Description 03/17/2024 Abstract [facility] [address] [place] [address] Patricia Mcclure MA Social History Tobacco Use [...] EST Office Visit [facility] [address] [place] [address] Sydnie Guerrero DO [address] [place] [address] documented as of this encounter Visit Diagnoses Not on filedocumented in this encounter Care Teams Bacteriologist Fishery Relationship Specialty Start Date End Date Michael Steiner MD PCP - General Internal Medicine 08/11/23 documented as of this encounter
--- OUTSIDE RECORDS SUMMARY | 2024-12-19 13:38 | XMS_ITS | Encounter Summary ---
Author [facility] [id number] [address] [place] [address] Care Team Providers Care School Principal Name Role Phone Michael Steiner DO Primary Care Provider [phone] Encounter Details Date Type Department Care Team (Late st Contact Info) Description 12/02/2023 Orders Only [facility] Internal Medicine - Family Medicine [address] [place] [address] Michael Steiner DO [address] [place] [address] Social History Tobacco Use Types Packs/Day Years Used Date Smoking Tobacco: Former Cigarettes 1 40 0 09/1981 - 09/2021 Smokeless Tobacco: Never Comments:5-6 cigerettes a da y Alcohol Use Standard Drinks/Week Comments Not Currently 0 (1 standard drink = 0.6 oz pur e alcohol) last use 15 years ago [facility] Utilities Answer Date Recorded In the past 12 months has [employer] electric, gas, oil, or water company threatened [...] often do you attend chur ch or voodoo services? More than 4 times [...] Answer Date Recorded Total Score 0 11/02/2023 [facility] of Occupat ional [...] 5 2:40 PM EDT Support Visit [facility] - Pre Admit [address] [place] [address] 5 10:00 AM EDT Hospital Encounter [facility] - Endoscopy [address] [place] [address] Michael Steiner, DO [address] [place] [address] Microcytic anemia (Primary Dx) 5 10:00 AM EDT - 5 11:00 AM EDT Surgery [facility] - Endoscopy [address] [place] [address] Michael Steiner, DO [address] [place] [address] ESOPHAGOGASTRODUODENOSCOPY DIAGNOSTIC [[id number] (CPT )] 5 7:30 AM EDT Appointment [facility] - Cardiovascular [address] [place] [address] Inez Cook, RIBBON HANKING MACHINE OPERATOR-FAMILY PROTECTION SPECIALIST [address] [facility] [place] [address] 5 3:30 PM EDT Office Visit [facility] - Heart Failure Clinic [address] [place] [address] Risa Summers MD [address] [place] [address] 5 1:30 PM EDT Office Visit [facility]icians Internal Medicine - Family Medicine [address] [place] [address] Michael Steiner DO [address] [place] [address] Scheduled Procedures Name Priority Associated Diagnoses Date/Ti [...] documented as of this encounter Care Teams School Principal Relationship Specialty Start Date End Date Michael Steiner DO [address] [place] [address] PCP - General Internal Medicine 12/17/23 documented as of this encounter
--- OUTSIDE RECORDS SUMMARY | 2024-12-19 13:38 | XMS_ITS | Encounter Summary ---
Author Organization [employer] Address [id number] [address] [place] [address] Care Team Providers Care Pruner Name Role Phone Michael Steiner DO Primary Care Provider [phone] Reason for Referral * Misc (Routine) - Closed Specialty Diagnoses / Procedures Referred By Contac t Referred To Contact Diagnoses BONY (obstructive sleep apnea) Procedures PSG Diagnostic Grupo Nguyen MD [address] [address] Phone: tel: fax: Referral ID Status Reason Start Date Expiration Date Visits Re quested Visits Authorized [id number] Closed 11/04/2021 11/04/2022 1 1 * Diagnostic Imaging (Routine) - Closed Specialty Diagnoses / Procedures Referred By Contac t Referred To Contact Radiology Diagnoses Pulmonary nodule Procedures CT chest without contrast Grupo Nguyen MD [address] [address] Phone: tel: fax: Referral ID Status Reason Start Date Expiration Date Visits Re quested Visits Authorized [id number] Closed 11/04/2021 11/04/2022 1 1 Encounter Details Date Type Department Care Team (Late st Contact Info) Description 11/04/2021 Telephone [facility] Pulmonary/Sleep Medicine [address] [address] Juli Mixon, VICTOR M Social [...] week 01/09/2020 How often do you attend holiness or presybeterian serv ices? Never 01/09/2020 Do [...] Ct 4 months order placed Recall placed [facility] message sent PSG ordered * [...] Description 5 2:40 PM EDT Support Visit [facility] - Pre Admit [address] [place] [address] 5 10:00 AM EDT Hospital Encounter [facility] - Endoscopy [address] [place] [address] Michael Steiner, DO [address] [place] [address] Microcytic anemia (Primary Dx) 5 10:00 AM EDT - 5 11:00 AM EDT Surgery [facility] - Endoscopy [address] [facility] [place] [address] Michael Steiner, DO [address] [place] [address] ESOPHAGOGASTRODUODENOSCOPY DIAGNOSTIC [[id number] (CPT )] 5 7:30 AM EDT Appointment [facility] - Cardiovascular [address] [facility] [place] [address] Inez Cook, CONSUMER SERVICES ADVISOR-AUTOPSY PATHOLOGIST [address] [place] [address] 5 3:30 PM EDT Office Visit [facility] - Heart Failure Clinic [address] [place] [address] Risa Summers MD [address] [place] [address] 5 1:30 PM EDT Office Visit [facility] Physicians Internal Medicine - Family Medicine [address] [place] [address] Michael Steiner, DO [address] [place] [address] Scheduled Procedures Name Priority Associated Diagnoses Date/Ti me ESOPHAGOGASTRODUODENOSCOPY DIAGNOSTIC microcytic anemia 12/20/2024 10:00 AM EDT ESOPHAGOGASTRODUODENOSCOPY DIAGNOSTIC Microcytic anemia documented as of this encounter Results * PSG Diagnostic (07/17/2022 7:36 PM EDT) 07/17/2022 7:36 PM EDT Narrative [facility] - 07/18/2022 5:45 PM EDT INTERPRETED us Grupo Nguyen MD [facility] ORDERABLES Final Result DAVID * CT chest without contrast (02/20/2022 11:47 [...] on 02/23/2022 10:28 AM Grupo Nguyen MD IM CT ORDERABLES Final Result documented in this encounter Visit Diagnoses Diagnosis Pulmonary nodule- Primary Other diseases of lung, not elsewhere classified BONY (obstructive sleep apnea) Obstructive sleep apnea (adult) (pediatric) Pulmonary nodule Other diseases of lung, not elsewhere classified BONY (obstructive sleep apnea) Obstructive sleep apnea (adult) (pediatric) Microcytic anemia- Primary Unspecified iron deficiency anemia [...] documented as of this encounter Care Teams Pruner Relationship Specialty Start Date End Date Michael Steiner DO [address] [place] [address] PCP - General Internal Medicine 12/17/23 documented as of this encounter
--- OUTSIDE RECORDS SUMMARY | 2024-12-19 13:38 | XMS_ITS | Encounter Summary ---
Author Organization [facility] [employer] [facility] tem Address [id number] [address] [place] [address] Care Team Providers Care Building Energy Consultant Name Role Phone Michael Steiner DO Primary Care Provider [phone] Encounter Details Date Type Department Care Team (Late st Contact Info) Description 11/02/2024 Results Follow-Up [facility] Physicians Internal Medicine - Family Medicine [address] [place] [address] Michael Steiner DO [address] [place] [address] Fluoroscopy upper GI with esophagus Social History Tobacco Use Types Packs/Day Years Used Date Smoking Tobacco: Former Cigarettes 1 40 0 09/1981 - 09/2021 Smokeless Tobacco: Never Comments:5-6 cigerettes a da y Alcohol Use Standard Drinks/Week Comments Not Currently 0 (1 standard drink = 0.6 oz pur e alcohol) last use 15 years ago [facility] Utilities Answer Date Recorded In the past 12 months has [employer], gas, oil, or water company threatened to [...] Answer Date Recorded Total Score 0 10/27/2024 [facility] of Occupat ional Health - Occupational Stress [...] Recorded Do you need help finding a [facility] career center and/or a training [...] Description 5 2:40 PM EDT Support Visit [facility] - Pre Admit [address] [place] [address] [phone] 5 10:00 AM EDT Hospital Encounter [facility] - Endoscopy [address] [place] [address] Michael Steiner, DO [address] [place] [address] Microcytic anemia (Primary Dx) 5 10:00 AM EDT - 5 11:00 AM EDT Surgery [facility] - Endoscopy [address] [place] [address] Michael Steiner, DO [address] [place] [address] ESOPHAGOGASTRODUODENOSCOPY DIAGNOSTIC [46815 (CPT )] 5 7:30 AM EDT Appointment [facility] - Cardiovascular [address] [place] [address] Inez Cook, LAUNCH MANAGER-CLEANING MATRON [address] [place] [address] 5 3:30 PM EDT Office Visit [facility] - Heart Failure Clinic [address] [place] [address] Risa Summers MD [address] [place] [address] 5 1:30 PM EDT Office Visit [facility] Physicians Internal Medicine - Family Medicine [address] [place] [address] Michael Steiner DO [address] [place] [address] Scheduled Procedures Name Priority Associated Diagnoses Date/Ti me ESOPHAGOGASTRODUODENOSCOPY DIAGNOSTIC microcytic anemia 12/20/2024 10:00 AM EDT ESOPHAGOGASTRODUODENOSCOPY DIAGNOSTIC Microcytic anemia documented as of this encounter Visit Diagnoses Not on filedocumented in this encounter Additional Health Concerns Assessment Noted Time PHQ-9 Depression Total Score: 0 10/28/19 25 4:16 PM EDT documented as of this encounter Care Teams Building Energy Consultant Relationship Specialty Start Date End Date Michael Steiner DO [address] [place] [address] PCP - General Internal Medicine 12/17/23 documented as of this encounter
--- OUTSIDE RECORDS SUMMARY | 2024-12-19 13:38 | XMS_ITS | Encounter Summary ---
Author Organization [employer] [facility] tem Address [id number] [address] [place] [address] Care Team Providers Care Development And Housing Director Name Role Phone Michael Steiner DO Primary Care Provider [phone] Encounter Details Date Type Department Care Team (Late st Contact Info) Description 11/10/2024 [facility] Internal Medicine - Family Medicine [address] [place] [address] Megan Talley, ELIAN Social History Tobacco Use [...] Recorded In the past 12 months has [employer], gas, oil, or water [employer] threatened to shut off services in your [...] week 07/25/2023 How often do you attend [facility] or judaism services? More than 4 times per year [...] Answer Date Recorded Total Score 0 11/07/2024 [facility] of Occupat ional Health - Occupational [...] Description 5 2:40 PM EDT Support Visit [facility] - Pre Admit [address] [place] [address] 5 10:00 AM EDT Hospital Encounter [facility] - Endoscopy [address] [place] [address] Michael Steiner, DO [address] [place] [address] Microcytic anemia (Primary Dx) 5 10:00 AM EDT - 5 11:00 AM EDT Surgery [facility] - Endoscopy [address] [place] [address] Michael Steiner, DO [address] [place] [address] ESOPHAGOGASTRODUODENOSCOPY DIAGNOSTIC [[id number] (CPT )] 5 7:30 AM EDT Appointment [facility] - Cardiovascular [address] [place] [address] Inez Cook, CUT LACE MACHINE OPERATOR-BULKHEAD CARPENTER [address] [place] [address] 5 3:30 PM EDT Office Visit [facility] - Heart Failure Clinic [address] [place] [address] Risa Summers MD [address] [place] [address] 5 1:30 PM EDT Office Visit [facility] Physicians Internal Medicine - Family Medicine [address] [place] [address] Michael Steiner DO [address] [place] [address] Scheduled Procedures Name Priority Associated Diagnoses Date/Ti me ESOPHAGOGASTRODUODENOSCOPY DIAGNOSTIC microcytic anemia 12/20/2024 10:00 AM EDT ESOPHAGOGASTRODUODENOSCOPY DIAGNOSTIC Microcytic anemia documented as of this encounter Visit Diagnoses Not on filedocumented in this encounter Additional Health Concerns Assessment Noted Time PHQ-9 Depression Total Score: 0 11/08/19 25 2:16 PM EDT documented as of this encounter Care Teams Development And Housing Director Relationship Specialty Start Date End Date Michael Steiner DO [address] [place] [address] PCP - General Internal Medicine 12/17/23 documented as of this encounter
--- OUTSIDE RECORDS SUMMARY | 2024-12-19 13:38 | XMS_ITS | Encounter Summary ---
Author Organization [facility] [employer] s tem Address [id number] [address] [place] [address] Care Team Providers Care Sign Language Translator Name Role Phone Joansunshine Michael Janae CABRERA Primary Care Provider [phone] Reason for Visit * Reason Comments Med Refill Encounter Details Date Type Department Care Team (Late st Contact Info) Description 03/05/2023 Refill [facility] - Heart Failure Clinic [address] [place] [address] Tristen Maldonado MD [address] [place] [address] Shortness of breath; Chronic heart failure with preserved ejection fraction ([facility]) Social History Tobacco Use Types Packs/Day Years [...] How often do you attend mandaeism or judaism serv ices? Never 01/09/2020 Do [...] Recorded Do you need help finding a [employer] career center and/or a training program? No [...] Description 5 2:40 PM EDT Support Visit [facility] - Pre Admit [address] [place] [address] 5 10:00 AM EDT Hospital Encounter [facility] - Endoscopy [address] [place] [address] Michael Steiner, DO [address] [place] [address] Microcytic anemia (Primary Dx) 5 10:00 AM EDT - 5 11:00 AM EDT Surgery [facility] - Endoscopy [address] [place] [address] Michael Steiner, DO [address] [place] [address] ESOPHAGOGASTRODUODENOSCOPY DIAGNOSTIC [[id number] (CPT )] 5 7:30 AM EDT Appointment [facility] - Cardiovascular [address] [place] [address] Inez Cook, MANAGER PRODUCT MANAGEMENT-LIQUOR STORE MANAGER [address] [place] [address] 5 3:30 PM EDT Office Visit [facility] - Heart Failure Clinic [address] [place] [address] Risa Summers MD [address] [place], [place] [phone] 5 1:30 PM EDT Office Visit [facility] Physicians Internal Medicine - Family Medicine [address] [place] [address] Michael Steiner, DO [address] [place] [address] Scheduled Procedures Name Priority Associated Diagnoses Date/Ti ms ESOPHAGOGASTRODUODENOSCOPY DIAGNOSTIC microcytic anemia 12/20/2024 10:00 AM [...] documented as of this encounter Care Teams Sign Language Translator Relationship Specialty Start Date End Date Michael Steiner DO [address] [place] [address] PCP - General Internal Medicine 12/17/23 documented as of this encounter
--- OUTSIDE RECORDS SUMMARY | 2024-12-19 13:38 | XMS_ITS | Encounter Summary ---
Author Organization [employer] tem Address [id number] [address] [place] [address] Care Team Providers Care Solderer Assembler Name Role Phone Michael Steiner DO Primary Care Provider [phone] Encounter Details Date Type Department Care Team (Late st Contact Info) Description 09/04/2024 Orders Only [facility] Internal Medicine - Family Medicine [address] [place] [address] Michael Steiner DO [address] [place] [address] Social History Tobacco Use Types Packs/Day Years Used Date Smoking Tobacco: Former Cigarettes 1 40 0 09/1981 - 09/2021 Smokeless Tobacco: Never Comments:5-6 cigerettes a da y Alcohol Use Standard Drinks/Week Comments Not Currently 0 (1 standard drink = 0.6 oz pur e alcohol) last use 15 years ago [facility] Utilities Answer Date Recorded In the past 12 months has [employer], gas, oil, or water company threatened [...] Answer Date Recorded Total Score 0 07/07/2024 [facility] of Occupat ional Health - Occupational [...] Description 5 2:40 PM EDT Support Visit [facility] - Pre Admit [address] [place] [address] 5 10:00 AM EDT Hospital Encounter [facility] - Endoscopy [address] [place] [address] Michael Steiner, DO [address] [place] [address] Microcytic anemia (Primary Dx) 5 10:00 AM EDT - 5 11:00 AM EDT Surgery [facility] - Endoscopy [address] [place] [address] Michael Steiner, DO [address] [place] [address] ESOPHAGOGASTRODUODENOSCOPY DIAGNOSTIC [[id number] (CPT )] 5 7:30 AM EDT Appointment [facility] - Cardiovascular [address] [place] [address] Inez Cook, PERSONNEL QUALITY ASSURANCE AUDITOR-OFFICE AUTOMATION CLERK [address] [place] [address] 5 3:30 PM EDT Office Visit [facility] - Heart Failure Clinic [address] [place] [address] Risa Summers MD [address] [place] [address] 5 1:30 PM EDT Office Visit [facility] Physicians Internal Medicine - Family Medicine [address] [place] [address] Michael Steiner DO [address] [place] [address] Scheduled Procedures Name Priority Associated Diagnoses Date/Ti me ESOPHAGOGASTRODUODENOSCOPY DIAGNOSTIC microcytic anemia 12/20/2024 10:00 AM EDT ESOPHAGOGASTRODUODENOSCOPY DIAGNOSTIC Microcytic anemia documented as of this encounter Visit Diagnoses Not on filedocumented in this encounter Additional Health Concerns Assessment Noted Time PHQ-9 Depression Total Score: 0 07/08/19 25 1:08 PM EDT documented as of this encounter Care Teams Solderer Assembler Relationship Specialty Start Date End Date Mihcael Steiner DO [address] [place] [address] PCP - General Internal Medicine 12/17/23 documented as of this encounter
--- OUTSIDE RECORDS SUMMARY | 2024-12-19 13:38 | XMS_ITS | Encounter Summary ---
Author Organization [facility] tem Address [id number] [address] [place] [address] Care Team Providers Care Admissions Evaluator Name Role Phone Michael Steiner DO Primary Care Provider [phone] Encounter Details Date Type Department Care Team (Late st Contact Info) Description 02/12/2022 Patient Outreach [facility] - Radiation Oncology [address] [place] [address] Lissette Baez RN Social History Tobacco Use [...] How often do you attend mormonism or quaker serv ices? Never 01/09/2020 Do you belong [...] Recorded Do you need help finding a [employer] career center and/or a training program? No [...] Description 5 2:40 PM EDT Support Visit [facility] - Pre Admit [address] [place] [address] 5 10:00 AM EDT Hospital Encounter [facility] - Endoscopy [address] [place] [address] Michael Steiner, DO [address] [place] [address] Microcytic anemia (Primary Dx) 5 10:00 AM EDT - 5 11:00 AM EDT Surgery [facility] - Endoscopy [address] [place] [address] Michael Steiner, DO [address] [place] [address] ESOPHAGOGASTRODUODENOSCOPY DIAGNOSTIC [[id number] (CPT )] 5 7:30 AM EDT Appointment [facility] - Cardiovascular [address] [place] [address] Inez Cook, SCROLL ASSEMBLER-RUG BACKING STENCILER [address] [place] [address] 5 3:30 PM EDT Office Visit [facility] - Heart Failure Clinic [address] [place] [address] Risa Summers MD [address] [place] [address] 5 1:30 PM EDT Office Visit [facility] Physicians Internal Medicine - Family Medicine [address] [place] [address] Michael Steiner DO [address] [place] [address] Scheduled Procedures Name Priority Associated Diagnoses Date/Ti [...] as of this encounter Care Teams Admissions Evaluator Relationship Specialty Start Date End Date Michael Steiner DO [address] [place] [address] PCP - General Internal Medicine 12/17/23 documented as of this encounter
--- OUTSIDE RECORDS SUMMARY | 2024-12-19 13:38 | XMS_ITS | Encounter Summary ---
Author Organization [employer] tem Address [id number] [address] [place] [address] Care Team Providers Care Nuclear Worker Technician Name Role Phone Michael Steiner DO Primary Care Provider [phone] Encounter Details Date Type Department Care Team (Late st Contact Info) Description 11/04/2021 Telephone [facility] Physicians Pulmonary/Sleep Medicine [address] [address] Juli Mixon RN Social History [...] week 01/09/2020 How often do you attend yarsani or anglican serv ices? Never 01/09/2020 Do [...] Recorded Do you need help finding a [employer] center and/or a training program? No 01/09/2020 [...] Description 5 2:40 PM EDT Support Visit [facility] - Pre Admit [address] [place] [address] 5 10:00 AM EDT Hospital Encounter [facility] - Endoscopy [address] [place] [place] [address] Michael Steiner, [address] [place] [address] Microcytic anemia (Primary Dx) 5 10:00 AM EDT - 5 11:00 AM EDT Surgery [facility] - Endoscopy [address] [facility] [place] [address] Michael Steiner, [address] [place] [address] ESOPHAGOGASTRODUODENOSCOPY DIAGNOSTIC [[id number] (CPT )] 5 7:30 AM EDT Appointment [facility] - Cardiovascular [address] [facility] [place] [address] Inez Cook, GUARD MANAGER-REDUCING SYSTEM OPERATOR [address] [place] [address] 5 3:30 PM EDT Office Visit [facility] - Heart Failure Clinic [address] [place] [address] Risa Summers MD [address] [place] [address] 5 1:30 PM EDT Office Visit [facility] Physicians Internal Medicine - Family Medicine [address] [place] [address] Michael Steiner, DO [address] [place] [address] Scheduled Procedures Name Priority Associated Diagnoses Date/Ti [...] documented as of this encounter Care Teams Nuclear Worker Technician Relationship Specialty Start Date End Date Michael Steiner DO [address] [place] [id number] PCP - General Internal Medicine 12/17/23 documented as of this encounter
--- OUTSIDE RECORDS SUMMARY | 2024-12-19 13:38 | XMS_ITS | Encounter Summary ---
Author Organization [facility] [employer] [facility] tem Address [id number] [address] [place] [address] Care Team Providers Care Gas Well Drilling Manager Name Role Phone Michael Steiner DO Primary Care Provider [phone] Encounter Details Date Type Department Care Team (Late st Contact Info) Description 02/13/2023 Telephone [facility] - Wound Care Clinic [address] [place] [address] Brittnee Sharpe, RN Social History Tobacco Use [...] week 01/09/2020 How often do you attend rastafarian or roman catholic serv ices? Never 01/09/2020 [...] Recorded Do you need help finding a [employer] career center and/or a training program? [...] Info) Description 2:40 PM EDT Support Visit [facility] - Pre Admit [address] [place] [address] 5 10:00 AM EDT Hospital Encounter [facility] - Endoscopy [address] [place] [address] Michael Steiner, [address] [place] [address] Microcytic anemia (Primary Dx) 5 10:00 AM EDT - 5 11:00 AM EDT Surgery [facility] - Endoscopy [address] [place] [address] Michael Steiner, [address] [place] [address] ESOPHAGOGASTRODUODENOSCOPY DIAGNOSTIC [61031 (CPT )] 5 7:30 AM EDT Appointment [facility] - Cardiovascular [address] [place] [address] Inez Cook, SERVER-PATIENT ADMITTING CLERK [address] [place] [address] 5 3:30 PM EDT Office Visit [facility] - Heart Failure Clinic [address] [place] [address] Risa Summers MD [address] [place] [address] 5 1:30 PM EDT Office Visit [facility] Physicians Internal Medicine - Family Medicine [address] [place] [address] Michael Steiner, DO [address] [place] [address] Scheduled Procedures Name Priority Associated Diagnoses Date/Ti [...] documented as of this encounter Care Teams Gas Well Drilling Manager Relationship Specialty Start Date End Date Michael Steiner DO [address] [place] [address] PCP - General Internal Medicine 12/17/23 documented as of this encounter
--- OUTSIDE RECORDS SUMMARY | 2024-12-19 13:38 | XMS_ITS | Encounter Summary ---
Author Organization [facility] tem Address [facility]-[id number] [address] [place] [address] Care Team Providers Care Miscellaneous Machine Operator Name Role Phone JoanMichael gonsalez Janae CABRERA Primary Care Provider [phone] Reason for Visit * Reason Comments Med Refill Encounter Details Date Type Department Care Team (Late st Contact Info) Description 01/05/2023 Refill [facility] Cardiology [address] [place] [address] Saurabh Morrison, RESIDENT CARE PROVIDER-CAR FERRIER [address] [place] [address] Med Refill Social History Tobacco Use Types [...] How often do you attend tenriism or adventist serv ices? Never 01/09/2020 Do [...] Recorded Do you need help finding a [employer] career center and/or a training program? No [...] 5 2:40 PM EDT Support Visit [facility] - Pre Admit [address] [place] [address] 5 10:00 AM EDT Hospital Encounter [facility] - Endoscopy [address] [place] [address] Michael Steiner, DO [address] [place] [address] Microcytic anemia (Primary Dx) 5 10:00 AM EDT - 5 11:00 AM EDT Surgery [facility] - Endoscopy [address] [place] [address] Michael Steiner, DO [address] [place] [address] ESOPHAGOGASTRODUODENOSCOPY DIAGNOSTIC [[id number] (CPT )] 5 7:30 AM EDT Appointment [facility] - Cardiovascular [address] [place] [address] Inez Cook, RESIDENT CARE PROVIDER-CAR FERRIER [address] [place] [address] 5 3:30 PM EDT Office Visit [facility] - Heart Failure Clinic [address] [place] [address] Risa Summers MD [address] [place] [address] 5 1:30 PM EDT Office Visit [facility] Physicians Internal Medicine - Family Medicine [address] [place] [address] Michael Steiner, DO [address] [place] [address] Scheduled Procedures Name Priority Associated Diagnoses Date/Ti ne ESOPHAGOGASTRODUODENOSCOPY DIAGNOSTIC microcytic anemia 12/20/2024 10:00 AM EDT ESOPHAGOGASTRODUODENOSCOPY DIAGNOSTIC Microcytic anemia documented as of this encounter Visit Diagnoses Diagnosis Atherosclerosis of beaver coronary artery of beaver heart without angina pectoris- Primary Hx of hyperlipidemia Microcytic anemia- Primary Unspecified iron deficiency anemia documented in this encounter Additional Health Concerns Infection Onset Date Last Indicated Resolved Time COVID-19 Rule-Out 04/13/2023 04/13/202304/1304/13/2023 2:19 PM EST COVID-19 Positive 04/13/2023 04/13/2023 04/29/2023 12:46 PM EST Enteric Rule-Out 04/28/2023 04/28/2023 04/29/2023 12:46 PM EST COVID-19 Rule-Out 07/24/2023 07/24/2023 07/24/2023 10:44 PM EDT COVID-19 Rule-Out 07/25/2023 07/25/2023 07/25/2023 7:25 PM EDT COVID-19 Rule-Out 12/17/2023 12/17/2023 12/17/2023 1:50 PM EDT Assessment Noted Time PHQ-9 Depression Total Score: 0 08/07/19 6:36 PM EDT documented as of this encounter Care Teams Miscellaneous Machine Operator Relationship Specialty Start Date End Date Michael Steiner DO [address] [place] [address] PCP - General Internal Medicine 12/17/23 documented as of this encounter
--- OUTSIDE RECORDS SUMMARY | 2024-12-19 13:38 | XMS_ITS | Encounter Summary ---
Author Organization [email or web address] s tem Address [id number] [address] [place] [address] Care Team Providers Care Operations Controller Name Role Phone Michael Steiner DO Primary Care Provider [phone] Encounter Details Date Type Department Care Team (Late st Contact Info) Description 10/01/2023 Telephone [facility] Internal Medicine - Family Medicine [address] [place] [address] Juan Diego Esquivel CMA Social History Tobacco [...] Recorded In the past 12 months has [employer], gas, oil, or water Walk-in Appointment Scheduler threatened to shut off services in your [...] How often do you attend [facility] or gnosticism services? More than 4 times [...] Answer Date Recorded Total Score 0 09/30/2023 [facility] of Occupat ional Health - [...] but I did refill her prescription for Hudson 5-325 b.i.d. times30 days documented in this encounter Plan of Treatment Upcoming Encounters Date Type Department Care Team (Latest Contact Info) Description 2:40 PM EDT Support Visit [facility] - Pre Admit [address] [place] [address] 10:00 AM EDT Hospital Encounter [facility] - Endoscopy [address] [place] [address] Michael Steiner, DO [address] [place] [address] Microcytic anemia (Primary Dx) 5 10:00 AM EDT - 5 11:00 AM EDT Surgery [facility] - Endoscopy [address] [place] [address] Michael Steiner, DO [address] [place] [address] ESOPHAGOGASTRODUODENOSCOPY DIAGNOSTIC [[id number] (CPT )] 5 7:30 AM EDT Appointment [facility] - Cardiovascular [address] [place] [address] Inez Cook, WINDOW CASER-BRIDGES AND BUILDINGS SUPERVISOR [address] [place] [address] 5 3:30 PM EDT Office Visit [facility] - Heart Failure Clinic [address] [place] [address] Risa Summers MD [address] [place], [place] [address] 5 1:30 PM EDT Office Visit [facility] Physicians Internal Medicine - Family Medicine [address] [place] [address] Michael Steiner, DO [address] [place] [address] Scheduled Procedures Name Priority Associated Diagnoses Date/Ti wy ESOPHAGOGASTRODUODENOSCOPY DIAGNOSTIC microcytic anemia 12/20/2024 10:00 AM EDT ESOPHAGOGASTRODUODENOSCOPY DIAGNOSTIC Microcytic anemia documented as of this encounter Visit Diagnoses Not on filedocumented in this encounter Additional Health Concerns Infection Onset Date Last Indicated Resolved Time COVID-19 Rule-Out 12/17/2023 12/17/2023 12/17/2023 1:50 PM EDT Assessment Noted Time PHQ-9 Depression Total Score: 0 09/30/19 1:38 PM EDT documented as of this encounter Care Teams Operations Controller Relationship Specialty Start Date End Date Michael Steiner DO [address] [place] [address] PCP - General Internal Medicine 12/17/23 documented as of this encounter
--- OUTSIDE RECORDS SUMMARY | 2024-12-19 13:38 | XMS_ITS | Encounter Summary ---
Author Organization [employer] s tem Address [id number] [address] [place] [address] Care Team Providers Care Acls Specialist Name Role Phone Michael Steiner DO Primary Care Provider [phone] Encounter Details Date Type Department Care Team (Late st Contact Info) Description 10/16/2023 Orders Only [facility] Internal Medicine - Family Medicine [address] [place] [address] Michael Steiner DO [address] [place] [address] B12 deficiency (Primary Dx) Social History Tobacco Use Types Packs/Day Years Used Date Smoking Tobacco: Former Cigarettes 1 40 0 09/1981 - 09/2021 Smokeless Tobacco: Never Comments:5-6 cigerettes a da y Alcohol Use Standard Drinks/Week Comments Not Currently 0 (1 standard drink = 0.6 oz pur e alcohol) last use 15 years ago [facility] Utilities Answer Date Recorded In the past 12 months has [employer] electric, gas, oil, or water company threatened [...] How often do you attend chur or tenriism services? More than 4 times per year 07/25/2023 Do you belong to any clubs o r organizations such as anglican groups, unions, fraternal or athletic groups, or [...] Answer Date Recorded Total Score 0 09/30/2023 [facility]at ional Health [...] 2:40 PM EDT Support Visit [facility] - Pre Admit [address] [place] [address] [phone] 10:00 AM EDT Hospital Encounter [facility] - Endoscopy [address] [place] [address] Michael Steiner, DO [address] [place] [address] Microcytic anemia (Primary Dx) 5 10:00 AM EDT - 5 11:00 AM EDT Surgery [facility] - Endoscopy [address] [facility] [place] [address] Michael Steiner, DO [address] [place] [address] ESOPHAGOGASTRODUODENOSCOPY DIAGNOSTIC [40919 (CPT )] 5 7:30 AM EDT Appointment [facility] - Cardiovascular [address] [place] [address] Inez Cook, CHAIN HOIST OPERATOR-SALES ENABLEMENT SPECIALIST [address] [place] [address] 5 3:30 PM EDT Office Visit [facility] - Heart Failure Clinic [address] [place] [phone] Risa Summers MD [address] [place] [address] 5 1:30 PM EDT Office [facility] Internal Medicine - Family Medicine [address] [place] [address] Michael Steiner DO [address] [place] [address] Scheduled Procedures Name Priority Associated Diagnoses Date/Ti me ESOPHAGOGASTRODUODENOSCOPY DIAGNOSTIC microcytic anemia 12/20/2024 10:00 AM EDT ESOPHAGOGASTRODUODENOSCOPY DIAGNOSTIC Microcytic anemia documented as of this encounter Visit Diagnoses Diagnosis B12 deficiency- Primary Microcytic anemia- Primary Unspecified iron deficiency anemia documented in this encounter Additional Health Concerns Infection Onset Date Last Indicated Resolved Time COVID-19 Rule-Out 12/17/2023 12/17/2023 12/17/2023 1:50 PM EDT Assessment Noted Time PHQ-9 Depression Total Score: 0 09/30/19 1:38 PM EDT documented as of this encounter Care Teams Acls Specialist Relationship Specialty Start Date End Date Michael Steiner DO [address] [place] [address] PCP - General Internal Medicine 8/22/24 documented as of this encounter
--- OUTSIDE RECORDS SUMMARY | 2024-12-19 13:38 | XMS_ITS | Encounter Summary ---
Author Organization [facility] Address [address] [place] [address] Care Team Providers Care Correspondence Section Supervisor Name Role Phone Michael Steiner MD Primary Care Provider [phone] Encounter Details Date Type Department Care Team (Late st Contact Info) Description 03/18/2024 Abstract [facility] [address] [place] [address] Patricia Mcclure MA Social History Tobacco Use [...] EST Office Visit [facility] [address] [place] [address] Sydnie Guerrero DO [address] [place] [address] documented as of this encounter Visit Diagnoses Not on filedocumented in this encounter Care Teams Correspondence Section Supervisor Relationship Specialty Start Date End Date Michael Steiner MD PCP - General Internal Medicine 08/11/23 documented as of this encounter
--- OUTSIDE RECORDS SUMMARY | 2024-12-19 13:38 | XMS_ITS | Encounter Summary ---
Author [facility] Address [facility][id number] [address] [place] [address] Care Team Providers Care Superannuation Clerk Name Role Phone Michael Steiner DO Primary Care Provider [phone] Encounter Details Date Type Department Care Team (Late st Contact Info) Description 11/23/2023 Orders Only [facility] Internal Medicine - Family Medicine [address] [place] [address] Michael Steiner DO [address] [place] [address] Social History Tobacco Use Types Packs/Day Years Used Date Smoking Tobacco: Former Cigarettes 1 40 0 09/1981 - 09/2021 Smokeless Tobacco: Never Comments:5-6 cigerettes a da y Alcohol Use Standard Drinks/Week Comments Not Currently 0 (1 standard drink = 0.6 oz pur e alcohol) last use 15 years ago [facility] Utilities Answer Date Recorded In the past 12 months has [employer] electric, gas, oil, or water company threatened [...] often do you attend chur ch or hinduism services? More than 4 times per year [...] Answer Date Recorded Total Score 0 11/02/2023 [facility] of Occupat ional Health - Occupational Stress [...] Description 5 2:40 PM EDT Support Visit [facility] - Pre Admit [address] [place] [address] 5 10:00 AM EDT Hospital Encounter [facility] - Endoscopy [address] [place] [address] Michael Steiner, DO [address] [place] [address] Microcytic anemia (Primary Dx) 5 10:00 AM EDT - 5 11:00 AM EDT Surgery [facility] - Endoscopy [address] [place] [address] Michael Steiner, DO [address] [place] [address] ESOPHAGOGASTRODUODENOSCOPY DIAGNOSTIC [04942 (CPT )] 5 7:30 AM EDT Appointment [facility] - Cardiovascular [address] [place] [address] Inez Cook, HIGH MAN-SHIFT STACKER [address] [facility] [place] [address] 5 3:30 PM EDT Office Visit [facility] - Heart Failure Clinic [address] [place] [address] Risa Summers MD [address] [place] [address] 5 1:30 PM EDT Office Visit [facility]icians Internal Medicine - Family Medicine [address] [place] [address] Michael Steiner DO [address] [place] [address] Scheduled Procedures Name Priority Associated Diagnoses Date/Ti [...] documented as of this encounter Care Teams Superannuation Clerk Relationship Specialty Start Date End Date Michael Steiner DO [address] [place] [address] PCP - General Internal Medicine 12/17/23 documented as of this encounter
--- OUTSIDE RECORDS SUMMARY | 2024-12-19 13:38 | XMS_ITS | Encounter Summary ---
Author Organization [facility] Address [address] [place] [address] Care Team Providers Care Concrete Saw Operator Name Role Phone Michael Steiner MD Primary Care Provider [phone] Encounter Details Date Type Department Care Team (Late st Contact Info) Description 03/17/2024 Abstract [facility] [address] [place] [address] Patricia Mcclure MA Social History Tobacco Use [...] EST Office Visit [facility] [address] [place] [address] Sydnie Guerrero DO [address] [place] [address] documented as of this encounter Visit Diagnoses Not on filedocumented in this encounter Care Teams Concrete Saw Operator Relationship Specialty Start Date End Date Michael Steiner MD PCP - General Internal Medicine 08/11/23 documented as of this encounter
--- OUTSIDE RECORDS SUMMARY | 2024-12-19 13:38 | XMS_ITS | Encounter Summary ---
Author Organization [facility] tem Address [id number][id number] [address] [place] [address] Care Team Providers Care Vice President Of Software Development Name Role Phone Michael Steiner DO Primary Care Provider [phone] Encounter Details Date Type Department Care Team (Late st Contact Info) Description 11/04/2021 Orders Only [facility] - Radiation Oncology [address] [place] [address] Renae Gallegos MA NSTEMI (non-ST elevated myocardial infarction) ([facility]) (Primary Dx); ASCVD (arteriosclerotic cardiovascular disease) Social [...] week 01/09/2020 How often do you attend evangelical or alevism serv ices? Never 01/09/2020 Do you belong [...] Recorded Do you need help finding a [employer] career center and/or a training program? No [...] [facility] [address] [place] [address] [phone] 5 10:00 AM EDT Hospital Encounter [facility] - Endoscopy [address] [place] [address] Michael Steiner, DO [address] [place] [address] Microcytic anemia (Primary Dx) 5 10:00 AM EDT - 5 11:00 AM EDT Surgery [facility] - Endoscopy [address] [facility] [place] [address] Michael Steiner, DO [address] [place] [address] ESOPHAGOGASTRODUODENOSCOPY DIAGNOSTIC [[id number] (CPT )] 5 7:30 AM EDT Appointment [facility] - Cardiovascular [address] [place] [address] Inez Cook, PERSONAL INJURY LEGAL ASSISTANT-RED HAT OPEN STACK ADMINISTRATOR [address] [place] [address] 5 3:30 PM EDT Office Visit [facility] - Heart Failure Clinic [address] [place] [address] Risa Summers MD [address] [place] [address] 5 1:30 PM EDT Office Visit [facility]icians Internal Medicine - Family Medicine [address] [place] [address] Michael Steiner, DO [address] [place] [address] Scheduled Procedures Name Priority Associated Diagnoses Date/Ti me ESOPHAGOGASTRODUODENOSCOPY DIAGNOSTIC microcytic anemia 12/20/2024 10:00 AM EDT ESOPHAGOGASTRODUODENOSCOPY DIAGNOSTIC Microcytic anemia documented as of this encounter Results * B-type natriuretic peptide (11/04/2021 12:38 PM EDT) BNP 89 <100.0 pg/mL 11/04/2021 3:51 PM EDT [facility] PLASMA 11/04/2021 12:3 8 PM EDT 11/04/2021 12:39 PM EDT us Grupo Nguyen MD LAB BLOOD ORDERABLES Final Res ult SUNLUIS MANUEL [facility] [address] [place] [address] * Comprehensive metabolic panel (11/04/2021 12:38 PM EDT) Pathologist [facility] Sodium 141 134 - 146 mmol/L 11/04/2021 2:55 PM EDT [facility] Potassium, Bld 4.1 3.5 - 5.0 mmol/L 11/04/2021 2:55 PM EDT [facility] Chloride 104 98 - 109 mmol/L 11/04/2021 2:55 PM EDT [facility] CO2 28 22 - 32 mmol/L 11/04/2021 2:55 PM EDT [facility] Anion gap 9 5 - 15 mmol/L 11/04/2021 2:55 PM EDT [facility] BUN 12 5 - 23 mg/dL 11/04/2021 2:55 PM EDT [facility] Creatinine 0.84 0.40 - 1.00 mg/dL 11/04/2021 2:55 PM EDT [facility] Comment:METHOD TRACEABLE TO IDMS STANDARD Glucose 94 65 - 99 mg/dL 11/04/2021 2:55 PM EDT [facility] Calcium 9.1 8.5 - 10.5 mg/dL 11/04/2021 2:55 PM EDT [facility] Total Protein 7.0 6.0 - 8.0 g/dL 11/04/2021 2:55 PM EDT [facility] Albumin 4.0 3.2 - 5.3 g/dL 11/04/2021 2:55 PM EDT [facility] Alkaline Phosphatase 56 39 - 130 U/L 11/04/2021 2:55 PM EDT [facility] AST 16 0 - 41 U/L 11/04/2021 2:55 PM EDT [facility] ALT 14 0 - 31 U/L 11/04/2021 2:55 PM EDT [facility] Total bilirubin 0.3 0.3 - 1.2 mg/dL 11/04/2021 2:55 PM EDT [facility] GFR MDRD Non Af Amer >60 >59 ml/min/1.7 3sq.m 11/04/2021 2:55 PM EDT [facility] GFR MDRD Af Amer >60 >59 ml/min/1.7 3sq.m 11/04/2021 2:55 PM EDT [facility] PLASMA 11/04/2021 12:3 8 PM EDT 11/04/2021 12:39 PM EDT us Grupo Nguyen MD LAB BLOOD ORDERABLES Final Res ult SKYLER [facility] [address] [place] [address] documented in this encounter Visit Diagnoses Diagnosis NSTEMI (non-ST elevated myocardial infarction) (CMS-HCC)- Primary Acute myocardial infarction, subendocardial infarction, episode of care unspecified ASCVD (arteriosclerotic cardiovascular disease) Unspecified cardiovascular disease Microcytic anemia- Primary Unspecified iron deficiency anemia [...] documented as of this encounter Care Teams Vice President Of Software Development Relationship Specialty Start Date End Date Michael Steiner DO [address] [place] [address] PCP - General Internal Medicine 12/17/23 documented as of this encounter
--- OUTSIDE RECORDS SUMMARY | 2024-12-19 13:38 | XMS_ITS | Encounter Summary ---
Author Organization [facility] [employer] Address [id number] [address] [place] [address] Care Team Providers Care Alum Mixer Name Role Phone JoanMichael gonsalez Janae CABRERA Primary Care Provider [phone] Reason for Visit * Reason Onset Date Comments Med Refill 11/23/2023 Encounter Details Date Type Department Care Team (Late st Contact Info) Description 11/23/2023 Refill [facility] Internal Medicine - Family Medicine [address] [place] [phone] Sofya Coe CMA Social History Tobacco Use Types Packs/Day Years Used Date Smoking Tobacco: Former Cigarettes 1 40 0 09/1981 - 09/2021 Smokeless Tobacco: Never Comments:5-6 cigerettes a da y Alcohol Use Standard Drinks/Week Comments Not Currently 0 (1 standard drink = 0.6 oz pur e alcohol) last use 15 years ago [facility] Utilities Answer Date Recorded In [...] How often do you attend [facility] or rastafari services? More than 4 times per year [...] Description 5 2:40 PM EDT Support Visit [facility] - Pre Admit [address] [place] [address] 5 10:00 AM EDT Hospital Encounter [facility] - Endoscopy [address] [place] [address] Michael Steiner, DO [address] [place] [address] Microcytic anemia (Primary Dx) 5 10:00 AM EDT - 5 11:00 AM EDT Surgery [facility] - Endoscopy [address] [place] [address] Michael Steiner, DO [address] [place] [address] ESOPHAGOGASTRODUODENOSCOPY DIAGNOSTIC [[id number] (CPT )] 5 7:30 AM EDT Appointment [facility] - Cardiovascular [address] [place] [address] Inez Cook APRN-ROTARY ROCK DRILLING MACHINE OPERATOR [address] [facility] [place] [address] 5 3:30 PM EDT Office Visit [facility] - Heart Failure Clinic [address] [place] [phone] Risa Summers MD [address] [place] [address] 5 1:30 PM EDT Office Visit [facility] Physicians Internal Medicine - Family Medicine [address] [place] [address] Michael Steiner DO [address] [place] [address] Scheduled Procedures Name Priority Associated Diagnoses Date/Ti [...] documented as of this encounter Care Teams Alum Mixer Relationship Specialty Start Date End Date Michael Steiner DO [address] [place] [address] PCP - General Internal Medicine 12/17/23 documented as of this encounter
--- OUTSIDE RECORDS SUMMARY | 2024-12-19 13:38 | XMS_ITS | Encounter Summary ---
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 More than 4 times [...] Answer Date Recorded Total Score 0 07/07/2024 [facility]at ional [...] Description 5 2:40 PM EDT Support Visit [facility] - Pre Admit [address] [place] [address] [phone] 10:00 AM EDT Hospital Encounter [facility] - Endoscopy [address] [place] [address] Michael Steiner, DO [address] [place] [address] Microcytic anemia (Primary Dx) 5 10:00 AM EDT - 5 11:00 AM EDT Surgery [facility] - Endoscopy [address] [place] [address] Michael Steiner, DO [address] [place] [address] ESOPHAGOGASTRODUODENOSCOPY DIAGNOSTIC [[id number] (CPT )] 5 7:30 AM EDT Appointment [facility] - Cardiovascular [address] [place] [address] Inez Cook, ELECTRICAL HELPER-ELECTRICAL SUBCONTRACTOR [address] [place] [address] 5 3:30 PM EDT Office Visit [facility] - Heart Failure Clinic [address] [place] [place] [address] Risa Summers MD [address] [place] [address] 5 1:30 PM EDT Office Visit [facility] Physicians Internal Medicine - Family Medicine [address] [place] [address] Michael Steiner DO [address] [place] [address] Scheduled Procedures Name Priority Associated Diagnoses Date/Ti me ESOPHAGOGASTRODUODENOSCOPY DIAGNOSTIC microcytic anemia 12/20/2024 10:00 AM EDT ESOPHAGOGASTRODUODENOSCOPY DIAGNOSTIC Microcytic anemia documented as of this encounter Visit Diagnoses Diagnosis 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
--- OUTSIDE RECORDS SUMMARY | 2024-12-19 13:38 | XMS_ITS | Encounter Summary ---
Author Organization [facility] Address [facility] [place][id number] [address] [place] [address] Care Team Providers Care Food Service Representative Name Role Phone JoanMichael gonsalez Janae CABRERA Primary Care Provider [phone] Reason for Visit * Reason Onset Date Comments Med Refill 12/02/2023 Encounter Details Date Type Department Care Team (Late st Contact Info) Description 12/02/2023 Refill [facility] Internal Medicine - Family Medicine [address] [place] [address] Tosin Reyes CMA Social History Tobacco Use [...] In the past 12 months has th [employer] electric, gas, oil, or water company threatened [...] do you attend [facility] or faith services? More than 4 times per year 07/25/2023 Do you belong to any clubs o r organizations such as faith groups, unions, fraternal or athletic groups, or [...] PM EDT Support Visit [facility] - Pre Admit [address] [place] [address] 5 10:00 AM EDT Hospital Encounter [facility] - Endoscopy [address] [place] [address] Michael Steiner, DO [address] [place] [address] Microcytic anemia (Primary Dx) 5 10:00 AM EDT - 5 11:00 AM EDT Surgery [facility] - Endoscopy [address] [place] [address] Michael Steiner, DO [address] [place] [address] ESOPHAGOGASTRODUODENOSCOPY DIAGNOSTIC [[id number] (CPT )] 5 7:30 AM EDT Appointment [facility] - Cardiovascular [address] [place] [address] Inez Cook APRN-INSTRUCTIONAL TECHNOLOGY TEACHER [address] [facility] [place] [address] 5 3:30 PM EDT Office Visit [facility] - Heart Failure Clinic [address] [place] [address] Risa Summers MD [address] [place] [address] 5 1:30 PM EDT Office Visit [facility] Physicians Internal Medicine - Family Medicine [address] [place] [address] Michael Steiner DO [address] [place] [address] Scheduled Procedures Name Priority Associated Diagnoses Date/Ti ks ESOPHAGOGASTRODUODENOSCOPY DIAGNOSTIC microcytic anemia 12/20/2024 10:00 AM EDT ESOPHAGOGASTRODUODENOSCOPY DIAGNOSTIC Microcytic anemia documented as of this encounter Visit Diagnoses Not on filedocumented in this encounter Additional Health Concerns Infection Onset Date Last Indicated Resolved Time COVID-19 Rule-Out 12/17/2023 12/17/2023 12/17/2023 1:50 PM EDT Assessment Noted Time PHQ-9 Depression Total Score: 0 11/02/19 3:42 PM EDT documented as of this encounter Care Teams Food Service Representative Relationship Specialty Start Date End Date Michael Steiner DO [address] [place] [address] PCP - General Internal Medicine 12/17/23 documented as of this encounter
--- OUTSIDE RECORDS SUMMARY | 2024-12-19 13:38 | XMS_ITS | Encounter Summary ---
Author Organization [facility] tem Address [id number] [address] [place] [address] Care Team Providers Care Endoscopy Support Specialist Name Role Phone Joansunshine Michael Janae CABRERA Primary Care Provider [phone] Reason for Visit * Reason Comments Med Refill Encounter Details Date Type Department Care Team (Late st Contact Info) Description 11/06/2022 Refill [facility] - Pain Management Clinic [address] [place] [phone] Yuniel Stringer PA [address] [facility], [address] [place] [address] Social History Tobacco Use Types Packs/Day Years [...] How often do you attend uatsdin or mormon serv ices? Never 01/09/2020 Do you belong [...] Recorded Do you need help finding a [employer] career center and/or a training program? No [...] 5 2:40 PM EDT Support Visit [facility] - Pre Admit [address] [place] [address] 5 10:00 AM EDT Hospital Encounter [facility] - Endoscopy [address] [place] [address] Michael Steiner, DO [address] [place] [address] Microcytic anemia (Primary Dx) 5 10:00 AM EDT - 5 11:00 AM EDT Surgery [facility] - Endoscopy [address] [place] [address] Michael Steiner, DO [address] [place] [address] ESOPHAGOGASTRODUODENOSCOPY DIAGNOSTIC [[id number] (CPT )] 5 7:30 AM EDT Appointment [facility] - Cardiovascular [address] [place] [address] Inez Cook, QC CHEMIST-BOWLING PIN SETTERS INSTALLER [address] [place] [address] 5 3:30 PM EDT Office Visit [facility] - Heart Failure Clinic [address] [place] [address] Risa Summers MD [address] [place] [address] 5 1:30 PM EDT Office Visit [facility] Physicians Internal Medicine - Family Medicine [address] [place] [address] Michael Steiner, DO [address] [place] [address] Scheduled Procedures Name Priority Associated Diagnoses Date/Ti [...] documented as of this encounter Care Teams Endoscopy Support Specialist Relationship Specialty Start Date End Date Michael Steiner DO [address] [place] [address] PCP - General Internal Medicine 12/17/23 documented as of this encounter
--- OUTSIDE RECORDS SUMMARY | 2024-12-19 13:38 | XMS_ITS | Clinical Summary ---
Author Organization [facility] Healthcare Address [address] [place] [address] Care Team Providers Care Surgical Dressing Maker Name Role Phone Michael Steiner MD Primary Care Provider Allergies Active Allergy Reactions Criticality Noted Date [...] angioplasty 2013 Overview (01/22/2024): Dr. Vickers at [facility] in [place] did PCI with bare metal stent placement [...] PM EDT Office Visit [facility] [address] [place] [address] Sydnie Guerrero DO Chronic obstructive pulmonary disease, unspecified COPD type (HCC) (Primary Dx); Chronic respiratory failure with hypoxia and hypercapnia (HCC); BONY (obstructive sleep apnea) 09/21/2024 Bamboo flowsheet [facility] [address] [place] [address] Sydnie Guerrero DO from Last [...] PM EST Office Visit [facility] [address] [place] [address] Sydnie Guerrero DO [address] [place] [address] [place]AGE Care Teams Surgical Dressing Maker Relationship Specialty Start Date End Date Michael Steiner MD PCP - General Internal Medicine 08/11/23
--- OUTSIDE RECORDS SUMMARY | 2024-12-19 13:39 | XMS_ITS | Encounter Summary ---
Author Organization [employer] s [employer] Address [id number] [address] [place] [address] Care Team Providers Care Cafe Lead Name Role Phone JoanMichael gonsalez Janae CABRERA Primary Care Provider Encounter Details Date Type Department Care Team (Late st Contact Info) Description 03/23/2024 Orders Only [facility] Internal Medicine - Family Medicine [address] [place] [phone] Sofya Coe CMA Chronic respiratory failure with hypoxia and hypercapnia ([facility]) Social History Tobacco Use Types Packs/Day Years Used Date Smoking Tobacco: Former Cigarettes 1 40 0 09/1981 - 09/2021 Smokeless Tobacco: Never Comments:5-6 cigerettes a da y Alcohol Use Standard Drinks/Week Comments Not Currently 0 (1 standard drink = 0.6 oz pur e alcohol) last use 15 years ago [facility] Utilities Answer Date Recorded In the past 12 months has [employer], gas, oil, or water [employer] threatened to shut off services in your [...] week 07/25/2023 How often do you attend [facility] or voodoo services? More than 4 times per year 07/25/2023 Do you belong to any clubs o r organizations such as sikh groups, unions, fraternal or athletic groups, or [...] Answer Date Recorded Total Score 0 01/04/2024 [facility]at [facility] - Occupational [...] Description 5 2:40 PM EDT Support Visit [facility] - Pre Admit [address] [place] [address] 5 10:00 AM EDT Hospital Encounter [facility] - Endoscopy [address] [place] [address] Michael Steiner, DO [address] [place] [address] Microcytic anemia (Primary Dx) 5 10:00 AM EDT - 5 11:00 AM EDT Surgery [facility] - Endoscopy [address] [place] [address] Michael Steiner, DO [address] [place] [address] ESOPHAGOGASTRODUODENOSCOPY DIAGNOSTIC [83367 (CPT )] 5 7:30 AM EDT Appointment [facility] - Cardiovascular [address] [place] [address] Inez Cook, UPSTREAM BIOMANUFACTURING TECHNICIAN-MEDICAL DETAILIST [address] [place] [phone] 5 3:30 PM EDT Office Visit [facility] - Heart Failure Clinic [address] [place] [address] Risa Summers MD [address] [place] [address] 5 1:30 PM EDT Office Visit [facility] Internal Medicine - Family Medicine [address] [place] [address] Michael Steiner DO [address] [place] [address] Scheduled Procedures Name Priority Associated Diagnoses Date/Ti me ESOPHAGOGASTRODUODENOSCOPY DIAGNOSTIC microcytic anemia 12/20/2024 10:00 AM EDT ESOPHAGOGASTRODUODENOSCOPY DIAGNOSTIC Microcytic anemia documented as of this encounter Procedures Procedure Name Priority Date/Time Associated Diagnosis Comments AMB REFERRAL TO PULMONOLOGY Routine 03/17/2024 Chronic respiratory failure with hypoxia and hypercapnia ([facility]) documented in this encounter Results * Referral to [facility] Pulmonary Medicine - [place], [place] (03/17/2024) 03/17/2024 Michael Steiner DO OUTPATIENT REFERRAL ORDERABLES F inal Result MANUALLY TRANSCRIBED RESULTS documented in this encounter Visit Diagnoses Diagnosis Chronic respiratory failure with hypoxia and hypercapnia (CMS-HCC) Microcytic anemia- Primary Unspecified iron deficiency anemia documented in this encounter Additional Health Concerns Assessment Noted Time PHQ-9 Depression Total Score: 0 01/04/20 24 1:01 PM EDT documented as of this encounter Care Teams Cafe Lead Relationship Specialty Start Date End Date Michael Steiner DO [address] [place] [address] PCP - General Internal Medicine 12/17/23 documented as of this encounter
--- OUTSIDE RECORDS SUMMARY | 2024-12-19 13:39 | XMS_ITS | Encounter Summary ---
Author Organization [employer] Address [facility] [id number] [address] [place] [address] Care Team Providers Care Marine Cargo Surveyor Name Role Phone Michael Steiner DO Primary Care Provider [phone] Encounter Details Date Type Department Care Team (Late st Contact Info) Description 10/31/2021 Telephone [facility] Pulmonary/Sleep Medicine [address] [address] Juli Mixon RN Social History [...] How often do you attend restoration or sabianism serv ices? Never 01/09/2020 Do [...] Recorded Do you need help finding a [employer] Virtual center and/or a training program? No 01/09/2020 [...] Description 5 2:40 PM EDT Support Visit [facility] - Pre Admit [address] [place] [address] 5 10:00 AM EDT Hospital Encounter [facility] - Endoscopy [address] [place] [address] Michael Steiner, DO [address] [place] [address] Microcytic anemia (Primary Dx) 5 10:00 AM EDT - 5 11:00 AM EDT Surgery [facility] - Endoscopy [address] [place] [address] Michael Steiner, DO [address] [place] [address] ESOPHAGOGASTRODUODENOSCOPY DIAGNOSTIC [[id number] (CPT )] 5 7:30 AM EDT Appointment [facility] - Cardiovascular [address] [place] [address] Inez Cook, WOMEN'S GARMENT FITTER-COMMERCIAL OR INSTITUTIONAL CLEANER [address] [place] [address] 5 3:30 PM EDT Office Visit [facility] - Heart Failure Clinic [address] [place] [address] Risa Summers MD [address] [place] [address] 5 1:30 PM EDT Office Visit [facility] Internal Medicine - Family Medicine [address] [place] [address] Michael Steiner, DO [address] [place] [address] Scheduled Procedures Name Priority Associated Diagnoses Date/Ti [...] as of this encounter Care Teams Marine Cargo Surveyor Relationship Specialty Start Date End Date Michael Steiner DO [address] [place] [address] PCP - General Internal Medicine 12/17/23 documented as of this encounter
--- OUTSIDE RECORDS SUMMARY | 2024-12-19 13:39 | XMS_ITS | Encounter Summary ---
Author Organization [employer] Address [id number] [address] [place] [address] Care Team Providers Care Burr Filer Name Role Phone JoanMichael gonsalez Janae CABRERA Primary Care Provider [phone] Encounter Details Date Type Department Care Team (Late st Contact Info) Description 08/03/2023 Orders Only [facility] Pulmonary/Sleep Medicine [address] [phone] Thang Vora RN Chronic hypoxic respiratory failure ([facility]) (Primary Dx) Social History Tobacco Use Types Packs/Day Years Used Date Smoking Tobacco: Former Cigarettes 1 40 0 09/1981 - 09/2021 Smokeless Tobacco: Former Chew Comments:5-6 cigerettes a da y Alcohol Use Standard Drinks/Week Comments Not Currently 0 (1 standard drink = 0.6 oz pur e alcohol) last use 15 years ago [facility] Utilities Answer Date Recorded In the past 12 months has th [employer], gas, oil, or water [employer] threatened to shut off services in your [...] week 07/25/2023 How often do you attend [facility] or anabaptism services? More than 4 times per year [...] Answer Date Recorded Total Score 0 07/01/2023 [facility] Occupat ional [...] 5 2:40 PM EDT Support Visit [facility] - Pre Admit [address] [place] [address] 5 10:00 AM EDT Hospital Encounter [facility] - Endoscopy [address] [place] [address] Michael Steiner, DO [address] [place] [address] Microcytic anemia (Primary Dx) 5 10:00 AM EDT - 5 11:00 AM EDT Surgery [facility] - Endoscopy [address] [facility] [place] [address] Michael Steiner, DO [address] [place] [address] ESOPHAGOGASTRODUODENOSCOPY DIAGNOSTIC [[id number] (CPT )] 5 7:30 AM EDT Appointment [facility] - Cardiovascular [address] [place] [phone] Inez Cook, BASEBALL PITCHER-NAIL MAKING MACHINE SETTER [address] [facility] [place] [phone] 5 3:30 PM EDT Office Visit [facility] - Heart Failure Clinic [address] [place] [address] Risa Summers MD [address] [place] [address] 5 1:30 PM EDT Office Visit [facility] Internal Medicine - Family Medicine [address] [place] [address] Michael Steiner DO [address] [place] [address] Scheduled Procedures Name Priority Associated Diagnoses Date/Ti me ESOPHAGOGASTRODUODENOSCOPY DIAGNOSTIC microcytic anemia 12/20/2024 10:00 AM EDT ESOPHAGOGASTRODUODENOSCOPY DIAGNOSTIC Microcytic anemia documented as of this encounter Visit Diagnoses Diagnosis Chronic hypoxic respiratory failure (CMS-HCC)- Primary Microcytic anemia- Primary Unspecified iron deficiency anemia documented in this encounter Additional Health Concerns Infection Onset Date Last Indicated Resolved Time COVID-19 Rule-Out 12/17/2023 12/17/2023 12/17/2023 1:50 PM EDT Assessment Noted Time PHQ-9 Depression Total Score: 0 07/01/19 2:19 PM EST documented as of this encounter Care Teams Burr Filer Relationship Specialty Start Date End Date Michael Steiner DO [address] [place] [address] PCP - General Internal Medicine 12/17/23 documented as of this encounter
--- OUTSIDE RECORDS SUMMARY | 2024-12-19 13:39 | XMS_ITS | Encounter Summary ---
Author Organization [employer] s [employer] Address [facility] [id number] [address] [place] [address] Care Team Providers Care Rug Weaver Name Role Phone Michael Steiner DO Primary Care Provider Encounter Details Date Type Department Care Team (Late st Contact Info) Description 10/24/2024 Telephone [facility] Internal Medicine - Family Medicine [address] [place] [address] Megan Talley, ELIAN Social History Tobacco Use Types Packs/Day Years Used Date Smoking Tobacco: Former Cigarettes 1 40 0 09/1981 - 09/2021 Smokeless Tobacco: Never Comments:5-6 cigerettes a da y Alcohol Use Standard Drinks/Week Comments Not Currently 0 (1 standard drink = 0.6 oz pur e alcohol) last use 15 years ago [facility] Utilities Answer Date Recorded In the past 12 months has [email or web address], gas, oil, or water [employer] threatened to shut off services in your [...] How often do you attend [facility] or anglican services? More than 4 times [...] Recorded Do you need help finding a [facility] career center and/or a training [...] Support Visit [facility] - Pre Admit [address] [place] [address] [phone] 5 10:00 AM EDT Hospital Encounter [facility] - Endoscopy [address] [place] [address] Michael Steiner, DO [address] [place] [address] Microcytic anemia (Primary Dx) 5 10:00 AM EDT - 5 11:00 AM EDT Surgery [facility] - Endoscopy [address] [place] [address] Michael Steiner, DO [address] [place] [address] ESOPHAGOGASTRODUODENOSCOPY DIAGNOSTIC [[id number] (CPT )] 5 7:30 AM EDT Appointment [facility] - Cardiovascular [address] [place] [address] Inez Cook, GUN FITTER-FAST FOOD SERVICES MANAGER [address] [place] [address] 5 3:30 PM EDT Office Visit [facility] - Heart Failure Clinic [address] [place] [address] Risa Summers MD [address] [place] [address] 5 1:30 PM EDT Office Visit [facility] Internal Medicine - Family Medicine [address] [place] [address] Michael Steiner, [address] [place] [address] Scheduled Procedures Name Priority Associated Diagnoses Date/Ti me ESOPHAGOGASTRODUODENOSCOPY DIAGNOSTIC microcytic anemia 12/20/2024 10:00 AM EDT ESOPHAGOGASTRODUODENOSCOPY DIAGNOSTIC Microcytic anemia documented as of this encounter Visit Diagnoses Not on filedocumented in this encounter Additional Health Concerns Assessment Noted Time PHQ-9 Depression Total Score: 15 025 11:42 AM EDT documented as of this encounter Care Teams Rug Weaver Relationship Specialty Start Date End Date Michael Steiner DO [address] [place] [address] PCP - General Internal Medicine 12/17/23 documented as of this encounter
--- OUTSIDE RECORDS SUMMARY | 2024-12-19 13:39 | XMS_ITS | Encounter Summary ---
Author Organization [employer] Address [id number] [address] [place] [address] Care Team Providers Care Surface Grinder Tender Name Role Phone Michael Steiner DO Primary Care Provider [phone] Encounter Details Date Type Department Care Team (Late st Contact Info) Description 10/24/2024 Orders Only [facility] Internal Medicine - Family Medicine [address] [place] [address] Michael Steiner DO [address] [place] [address] Venous insufficiency of both lower extremities (Primary Dx) Social History Tobacco Use Types Packs/Day Years Used Date Smoking Tobacco: Former Cigarettes 1 40 0 09/1981 - 09/2021 Smokeless Tobacco: Never Comments:5-6 cigerettes a da y Alcohol Use Standard Drinks/Week Comments Not Currently 0 (1 standard drink = 0.6 oz pur e alcohol) last use 15 years ago [facility] Utilities Answer Date Recorded In the past 12 months has [employer], gas, oil, or water company threatened [...] Answer Date Recorded Total Score 0 10/27/2024 [facility] Occupat ional Health - [...] Description 5 2:40 PM EDT Support Visit [facility] - Pre Admit [address] [place] [address] 5 10:00 AM EDT Hospital Encounter [facility] - Endoscopy [address] [place] [address] Michael Steiner, DO [address] [place] [address] Microcytic anemia (Primary Dx) 5 10:00 AM EDT - 5 11:00 AM EDT Surgery [facility] - Endoscopy [address] [place] [address] Michael Steiner, DO [address] [place] [address] ESOPHAGOGASTRODUODENOSCOPY DIAGNOSTIC [51594 (CPT )] 5 7:30 AM EDT Appointment [facility] - Cardiovascular [address] [place] [address] nIez Cook, SAILMAKER-COAGULATOR [address] [place] [address] 5 3:30 PM EDT Office Visit [facility] - Heart Failure Clinic [address] [place] [address] Risa Summers MD [address] [place] [address] 5 1:30 PM EDT Office Visit [facility]icians Internal Medicine - Family Medicine [address] [place] [address] Michael Steiner DO [address] [place] [address] Scheduled Procedures Name Priority Associated Diagnoses Date/Ti me ESOPHAGOGASTRODUODENOSCOPY DIAGNOSTIC microcytic anemia 12/20/2024 10:00 AM EDT ESOPHAGOGASTRODUODENOSCOPY DIAGNOSTIC Microcytic anemia documented as of this encounter Visit Diagnoses Diagnosis Venous insufficiency of both lower extremities- Primary Microcytic anemia- Primary Unspecified iron deficiency anemia documented in this encounter Additional Health Concerns Assessment Noted Time PHQ-9 Depression Total Score: 15 025 11:42 AM EDT documented as of this encounter Care Teams Surface Grinder Tender Relationship Specialty Start Date End Date Michael Steiner DO [address] [place] [address] PCP - General Internal Medicine 12/17/23 documented as of this encounter
--- OUTSIDE RECORDS SUMMARY | 2024-12-19 13:39 | XMS_ITS | Encounter Summary ---
Author Organization [employer] Address [facility] [place]-[id number] [address] [place] [address] Care Team Providers Care Bartender Manager Name Role Phone Obdulia Michael Janae CABRERA Primary Care Provider [phone] Encounter Details Date Type Department Care Team (Late st Contact Info) Description 07/30/2023 Telephone [facility] Pulmonary/Sleep Medicine [address] [place] [phone] Shari Garcia RN Social History Tobacco Use [...] Recorded In the past 12 months has [employer], gas, oil, or water [employer] threatened to shut off services in your [...] you attend [facility] or mu-ism services? More than 4 times per year [...] Date Recorded Total Score 0 07/01/2023 [facility] of Occupat ional Health - Occupational [...] Faxed order for conserver device testing to [facility] documented in this encounter Plan of Treatment Upcoming Encounters Date Type Department Care Team (Latest Contact Info) Description 2:40 PM EDT Support Visit [facility] - Pre Admit [address] [place] [address] 5 10:00 AM EDT Hospital Encounter [facility] - Endoscopy [address] [place] [address] Michael Steiner, DO [address] [place] [address] Microcytic anemia (Primary Dx) 5 10:00 AM EDT - 5 11:00 AM EDT Surgery [facility] - Endoscopy [address] [place] [address] Michael Steiner, DO [address] [place] [address] ESOPHAGOGASTRODUODENOSCOPY DIAGNOSTIC [[id number] (CPT )] 5 7:30 AM EDT Appointment [facility] - Cardiovascular [address] [place] [address] Inez Cook, CRYPTOLOGIST-RESEARCH CONSULTANT [address] [place] [address] 5 3:30 PM EDT Office Visit [facility] - Heart Failure Clinic [address] [place] [address] Risa Summers MD [address] [place], [place] [address] 5 1:30 PM EDT Office Visit [facility] Physicians Internal Medicine - Family Medicine [address] [place] [address] Michael Steiner, DO [address] [place] [address] Scheduled Procedures Name Priority Associated Diagnoses Date/Ti [...] documented as of this encounter Care Teams Bartender Manager Relationship Specialty Start Date End Date Michael Steiner DO [address] [place] [address] PCP - General Internal Medicine 12/17/23 documented as of this encounter
--- OUTSIDE RECORDS SUMMARY | 2024-12-19 13:39 | XMS_ITS | Encounter Summary ---
Author Organization [employer] [facility] [employer] Address [facility] [id number] [address] [place] [address] Care Team Providers Care Butadiene Convertor Operator Name Role Phone Michael Steiner DO Primary Care Provider [phone] Reason for Visit * Reason Comments Med Refill Encounter Details Date Type Department Care Team (Late st Contact Info) Description 06/28/2024 Refill [facility] Internal Medicine - Family Medicine [address] [place] [address] Michael Steiner DO [address] [place] [address] Spinal stenosis of lumbar region with neurogenic [...] Recorded In the past 12 months has [employer], gas, oil, or water company threatened to [...] How often do you attend chur or temple services? More than 4 times [...] Answer Date Recorded Total Score 0 01/04/2024 [facility] ional Health - Occupational Stress [...] Recorded Do you need help finding a [facility] career center and/or a [...] Description 5 2:40 PM EDT Support Visit [facility] - Pre Admit [address] [place] [address] 5 10:00 AM EDT Hospital Encounter [facility] - Endoscopy [address] [place] [address] Michael Steiner, DO [address] [place] [address] Microcytic anemia (Primary Dx) 5 10:00 AM EDT - 5 11:00 AM EDT Surgery [facility] - Endoscopy [address] [place] [address] Michael Steiner, DO [address] [place] [address] ESOPHAGOGASTRODUODENOSCOPY DIAGNOSTIC [30722 (CPT )] 5 7:30 AM EDT Appointment [facility] - Cardiovascular [address] [place] [phone] Inez Cook, AUXILIARY ENGINEER-CLAIMS ADJUSTER CROP [address] [place] [address] 5 3:30 PM EDT Office Visit [facility] - Heart Failure Clinic [address] [place] [phone] Risa Summers MD [address] [place] [address] 5 1:30 PM EDT Office Visit [facility] Physicians Internal Medicine - Family Medicine [address] [place] [address] Michael Steiner DO [address] [place] [address] Scheduled Procedures Name Priority Associated Diagnoses Date/Ti [...] documented as of this encounter Care Teams Butadiene Convertor Operator Relationship Specialty Start Date End Date Michael Steiner DO [address] [place] [address] PCP - General Internal Medicine 12/17/23 documented as of this encounter
--- OUTSIDE RECORDS SUMMARY | 2024-12-19 13:39 | XMS_ITS | Encounter Summary ---
Author Organization [facility] Address [id number] [address] [place] [address] Care Team Providers Care Valve Inspector Name Role Phone Michael Steiner DO Primary Care Provider [phone] Reason for Visit * Reason Onset Date Comments Med Refill 02/24/2024 Encounter Details Date Type Department Care Team (Late st Contact Info) Description 02/24/2024 Refill [facility] Internal Medicine - Family Medicine [address] [place] [address] Michael Steiner DO [address] [place] [address] Peripheral polyneuropathy Social History Tobacco Use Types Packs/Day Years Used Date Smoking Tobacco: Former Cigarettes 1 40 0 09/1981 - 09/2021 Smokeless Tobacco: Never Comments:5-6 cigerettes a da y Alcohol Use Standard Drinks/Week Comments Not Currently 0 (1 standard drink = 0.6 oz pur e alcohol) last use 15 [address] [facility] Utilities Answer Date Recorded In the past 12 months has [employer], gas, oil, or water company threatened to [...] How often do you attend chur or synagogue services? More than 4 times per year [...] Recorded Total Score 0 01/04/2024 [facility] of Occupat ional Health - Occupational Stress [...] Recorded Do you need help finding a [facility] career center and/or a training [...] 2:40 PM EDT Support Visit [facility] - Pre Admit [address] [place] [address] 5 10:00 AM EDT Hospital Encounter [facility] - Endoscopy [address] [place] [address] Michael Steiner, DO [address] [place] [address] Microcytic anemia (Primary Dx) 5 10:00 AM EDT - 5 11:00 AM EDT Surgery [facility] - Endoscopy [address] [place] [address] Michael Steiner, DO [address] [place] [address] ESOPHAGOGASTRODUODENOSCOPY DIAGNOSTIC [[id number] (CPT )] 5 7:30 AM EDT Appointment [facility] - Cardiovascular [address] [place] [address] Inez Cook, INSPECTING ENGINEER-HARBOR PILOT [address] [place] [phone] 5 3:30 PM EDT Office Visit [facility] - Heart Failure Clinic [address] [place] [address] Risa Summers MD [address] [place] [address] 5 1:30 PM EDT Office Visit [facility] Internal Medicine - Family Medicine [address] [place] [address] Michael Steiner DO [address] [place] [address] Scheduled Procedures Name Priority Associated Diagnoses Date/Ti me ESOPHAGOGASTRODUODENOSCOPY DIAGNOSTIC microcytic anemia 12/20/2024 10:00 AM EDT ESOPHAGOGASTRODUODENOSCOPY DIAGNOSTIC Microcytic anemia documented as of this encounter Visit Diagnoses Diagnosis Peripheral polyneuropathy Microcytic anemia- Primary Unspecified iron deficiency anemia documented in this encounter Additional Health Concerns Assessment Noted Time PHQ-9 Depression Total Score: 0 01/04/20 1:01 PM EDT documented as of this encounter Care Teams Valve Inspector Relationship Specialty Start Date End Date Michael Steiner DO [address] [place] [address] PCP - General Internal Medicine 12/17/23 documented as of this encounter
--- OUTSIDE RECORDS SUMMARY | 2024-12-19 13:39 | XMS_ITS | Encounter Summary ---
Author Organization [facility] Address [id number] [address] [place] [address] Care Team Providers Care Manager Of Health Name Role Phone Michael Steiner DO Primary Care Provider [phone] Reason for Referral * Diagnostic Imaging (Routine) - Closed Specialty Diagnoses / Procedures Referred By Rick rahman Referred To Contact Radiology Diagnoses Pulmonary nodule Procedures PET CT skull to thigh Grupo Nguyen MD [address] [address] Phone: tel: fax: [place] [address] [place] [address] Phone: tel: Referral ID Status Reason Start Date Expiration Date Visits Re quested Visits Authorized [id number] Closed 10/17/2021 10/17/2022 1 1 Encounter Details Date Type Department Care Team (Late st Contact Info) Description 10/17/2021 Orders Only [facility] Pulmonary/Sleep Medicine [address] [phone] Juli Mixon RN Pulmonary nodule (Primary Dx) [...] week 01/09/2020 How often do you attend hoahaoism or catholic serv ices? Never 01/09/2020 Do you belong to any clubs o r organizations such as hoahaoism groups, unions, fraternal or athletic groups, or [...] Do you need help finding a [facility] and/or a training program? No [...] Description 5 2:40 PM EDT Support Visit [facility] - Pre Admit [address] [place] [address] 5 10:00 AM EDT Hospital Encounter [facility] - Endoscopy [address] [place] [address] Michael Steiner, DO [address] [place] [address] Microcytic anemia (Primary Dx) 5 10:00 AM EDT - 5 11:00 AM EDT Surgery [facility] - Endoscopy [address] [place] [address] Michael Steiner, DO [address] [place] [address] ESOPHAGOGASTRODUODENOSCOPY DIAGNOSTIC [[id number] (CPT )] 5 7:30 AM EDT Appointment [facility] - Cardiovascular [address] [place] [address] Inez Cook, URBAN ANTHROPOLOGIST-PUBLIC HEALTH TEACHER [address] [place] [address] 5 3:30 PM EDT Office Visit [facility] - Heart Failure Clinic [address] [place] [address] Risa Summers MD [address] [place] [address] 5 1:30 PM EDT Office Visit [facility] Internal Medicine - Family Medicine [address] [place] [address] Michael Steiner, DO [address] [facility] [place] [address] Scheduled Procedures Name Priority Associated Diagnoses Date/Ti ri ESOPHAGOGASTRODUODENOSCOPY DIAGNOSTIC microcytic anemia 12/20/2024 10:00 AM [...] malignancy:No Indication:Malignant potential Radioisotope:17.0 millicuries FDG. Blood gurhdof126 milligrams per deciliter. Blood glucose reference range [...] malignancy:No Indication:Malignant potential Radioisotope:17.0 millicuries FDG. Blood qtespgg894 milligrams perdeciliter. Blood glucose reference range 65-90 [...] Saqib Saldana MD on 11/04/2021 10:57 AM us Grupo Nguyen MD IMG PET ORDERABLES Final [...] Other diseases of lung, not elsewhere classified Microcytic anemia- Primary Unspecified iron deficiency anemia [...] documented as of this encounter Care Teams Manager Of Health Relationship Specialty Start Date End Date Michael Steiner DO [address] [place] [address] PCP - General Internal Medicine 12/17/23 documented as of this encounter
--- OUTSIDE RECORDS SUMMARY | 2024-12-19 13:39 | XMS_ITS | Encounter Summary ---
Author Organization [facility] Address [id number] [address] [place] [address] Care Team Providers Care Fishing Line Winding Machine Operator Name Role Phone Michael Steiner DO Primary Care Provider [phone] Reason for Referral * Misc (Routine) - Closed Specialty Diagnoses / Procedures Referred By Contac t Referred To Contact Diagnoses Chronic respiratory failure with hypoxia and hypercapnia (CMS-HCC) Procedures Oxygen Therapy Michael Steiner DO [address] [place] [address] Phone: tel: fax: Referral ID Status Reason Start Date Expiration Date Visits Re quested Visits Authorized [id number] Closed 08/13/2023 08/12/2024 1 1 Encounter Details Date Type Department Care Team (Late st Contact Info) Description 08/13/2023 Orders Only [facility] Internal Medicine - Family Medicine [address] [place] [address] Michael Steiner DO [address] [place] [address] Chronic respiratory failure with hypoxia and hypercapnia (CMS-HCC) (Primary Dx) Social History Tobacco Use Types Packs/Day Years Used Date Smoking Tobacco: Former Cigarettes 1 40 0 09/1981 - 09/2021 Smokeless Tobacco: Former Chew Comments:5-6 cigerettes a da y Alcohol Use Standard Drinks/Week Comments Not Currently 0 (1 standard drink = 0.6 oz pur e alcohol) last use 15 years ago [facility] Utilities Answer Date Recorded In [...] often do you attend chur ch or druze services? More than 4 times per year [...] Answer Date Recorded Total Score 0 08/10/2023 [facility] of Occupat ional Health - Occupational Stress [...] Recorded Do you need help finding a [facility] Meeps center and/or a training program? No 07/25/2023 [...] Description 5 2:40 PM EDT Support Visit [facility] - Pre Admit [address] [place] [address] 5 10:00 AM EDT Hospital Encounter [facility] - Endoscopy [address] [place] [address] Michael Steiner, DO [address] [place] [address] Microcytic anemia (Primary Dx) 5 10:00 AM EDT - 5 11:00 AM EDT Surgery [facility] - Endoscopy [address] [place] [address] Michael Steiner, DO [address] [place] [address] ESOPHAGOGASTRODUODENOSCOPY DIAGNOSTIC [[id number] (CPT )] 7:30 AM EDT Appointment [facility] - Cardiovascular [address] [place] [address] Inez Cook, REFRACTORY TILE HELPER-JIGMAKER [address] [place] [address] 5 3:30 PM EDT Office Visit [facility] - Heart Failure Clinic [address] [place] [address] Risa Summers MD [address] [place], [place] [address] 5 1:30 PM EDT Office Visit [facility] Internal Medicine - Family Medicine [address] [place] [address] Michael Steiner, [address] [place], [place] [address] Scheduled Procedures Name Priority Associated Diagnoses Date/Ti co ESOPHAGOGASTRODUODENOSCOPY DIAGNOSTIC microcytic anemia 12/20/2024 10:00 AM EDT ESOPHAGOGASTRODUODENOSCOPY DIAGNOSTIC Microcytic anemia documented as of this encounter Visit Diagnoses Diagnosis Chronic respiratory failure with hypoxia and hypercapnia (CMS-HCC)- Primary Microcytic anemia- Primary Unspecified iron deficiency anemia documented in this encounter Additional Health Concerns Infection Onset Date Last Indicated Resolved Time COVID-19 Rule-Out 12/17/2023 12/17/2023 12/17/2023 1:50 PM EDT Assessment Noted Time PHQ-9 Depression Total Score: 0 08/10/19 1:05 PM EDT documented as of this encounter Care Teams Fishing Line Winding Machine Operator Relationship Specialty Start Date End Date Michael Steiner DO [address] [place] [phone] PCP - General Internal Medicine 12/17/23 documented as of this encounter
--- OUTSIDE RECORDS SUMMARY | 2024-12-19 13:39 | XMS_ITS | Encounter Summary ---
Author Organization [facility] tem Address [id number] [address] [place] [address] Care Team Providers Care Client Care Consultant Name Role Phone Michael Steiner DO Primary Care Provider [phone] Reason for Referral * Consultation (Routine) - Pending Review Specialty Diagnoses / Procedures Referred By Contluann t Referred To Contact Pulmonary Disease Diagnoses Chronic respiratory failure with hypoxia and hypercapnia ([facility]-HCC) Michael Steiner DO [address] [place] [address] Phone: tel: fax: Sydnie Guerrero DO [address] [place] [address] Phone: tel: fax: Referral ID Status Reason Start Date Expiration Date Visits Requested Visits Authorized [id number] Pending Review Specialty Services Required 02/08/2025 1 1 Encounter Details Date Type Department Care Team (Late st Contact Info) Description 02/09/2024 Orders Only [facility] Internal Medicine - Family Medicine [address] [place] [address] Michael Steiner DO [address] [place] [address] Chronic respiratory failure with hypoxia and hypercapnia (CMS-HCC) (Primary Dx) Social History Tobacco Use Types Packs/Day Years Used Date Smoking Tobacco: Former Cigarettes 1 40 0 09/1981 - 09/2021 Smokeless Tobacco: Never Comments:5-6 cigerettes a da y Alcohol Use Standard Drinks/Week Comments Not Currently 0 (1 standard drink = 0.6 oz pur e alcohol) last use 15 years ago [facility] Utilities Answer Date Recorded In the past 12 months has th e [employer], gas, oil, or water [employer] threatened to shut off services in your [...] How often do you attend [facility] or jain services? More than 4 times [...] Answer Date Recorded Total Score 0 01/04/2024 [facility] of Occupat ional Health - Occupational Stress [...] Info) Description 2:40 PM EDT Support Visit [facility] - Pre Admit [address] [place] [address] 5 10:00 AM EDT Hospital Encounter [facility] - Endoscopy [address] [place] [address] Michael Steiner, DO [address] [place] [address] Microcytic anemia (Primary Dx) 5 10:00 AM EDT - 5 11:00 AM EDT Surgery [facility] - Endoscopy [address] [place] [address] Michael Steiner, [address] [place] [address] ESOPHAGOGASTRODUODENOSCOPY DIAGNOSTIC [[id number] (CPT )] 5 7:30 AM EDT Appointment [facility] - Cardiovascular [address] [place] [address] Inez Cook, SPINNER IRON-EGG BREAKER [address] [place] [address] 5 3:30 PM EDT Office Visit [facility] - Heart Failure Clinic [address] [place] [address] Risa Summers MD [address] [place] [address] 5 1:30 PM EDT Office Visit [facility] Internal Medicine - Family Medicine [address] [place] [address] Michael Steiner, DO [address] [place] [address] Scheduled Procedures Name Priority Associated Diagnoses Date/Ti me ESOPHAGOGASTRODUODENOSCOPY DIAGNOSTIC microcytic anemia 12/20/2024 10:00 AM EDT ESOPHAGOGASTRODUODENOSCOPY DIAGNOSTIC Microcytic anemia documented as of this encounter Results * [facility] [place], [place] (03/17/2024) 03/17/2024 Michael Steiner DO OUTPATIENT [...] documented as of this encounter Care Teams Client Care Consultant Relationship Specialty Start Date End Date Michael Steiner DO [address] [place] [address] PCP - General Internal Medicine 12/17/23 documented as of this encounter
--- OUTSIDE RECORDS SUMMARY | 2024-12-19 13:39 | XMS_ITS | Encounter Summary ---
Author Organization [facility] Address [id number] [address] [place] [address] Care Team Providers Care Senior Technical Manager Name Role Phone Michael Steiner Primary Care Provider [phone] Reason for Visit * Reason Onset Date Comments Transition Of Care 07/28/2023 Encounter Details Date Type Department Care Team (Late st Contact Info) Description 07/28/2023 [facility] [address] [facility] [place] [place] [address] Joan Gunderson RN Transition Of Care Social History Tobacco Use Types Packs/Day Years Used Date Smoking Tobacco: Former Cigarettes 1 40 0 09/1981 - 09/2021 Smokeless Tobacco: Former Chew Comments:5-6 cigerettes a da y Alcohol Use Standard Drinks/Week Comments Not Currently 0 (1 standard drink = 0.6 oz pur e alcohol) last use 15 years ago [facility] Utilities Answer Date Recorded In the [...] How often do you attend [facility] or zoroastrianism services? More than 4 times [...] Answer Date Recorded Total Score 0 07/01/2023 [facility] of Occupat ional Health - Occupational [...] Discharge Specialty: Pulmonology Name of Discharging Facility: [facility] Date of Facility Discharge: 07.25.23-07.27.23 Date of Interactive Contact and Name of Assistant Professor Of Psychology: 07.28.23 5743 Spoke with the patient. Medication Review Completed: [...] 2:40 PM EDT Support Visit [facility] - Pre Admit [address] [place] [address] [phone] 10:00 AM EDT Hospital Encounter [facility] - Endoscopy [address] [place] [address] Michael Steiner DO [address] [place] [address] Microcytic anemia (Primary Dx) 5 10:00 AM EDT - 5 11:00 AM EDT Surgery [facility] - Endoscopy [address] [place] [address] Michael Steiner, DO [address] [place] [address] ESOPHAGOGASTRODUODENOSCOPY DIAGNOSTIC [[id number] (CPT )] 5 7:30 AM EDT Appointment [facility] - Cardiovascular [address] [place] [address] Inez Cook, HIGH SCHOOL COMBINATION TEACHER-EARTH AUGER OPERATOR [address] [place] [address] 5 3:30 PM EDT Office Visit [facility] - Heart Failure Clinic [address] [place] [address] Risa Summers MD [address] [place] [address] 5 1:30 PM EDT Office Visit [facility] Internal Medicine - Family Medicine [address] [place] [address] Michael Steiner, DO [address] [place] [address] Scheduled Procedures Name Priority Associated Diagnoses Date/Ti [...] as of this encounter Care Teams Senior Technical Manager Relationship Specialty Start Date End Date Michael Steiner DO [address] [place] [address] PCP - General Internal Medicine 12/17/23 documented as of this encounter
--- OUTSIDE RECORDS SUMMARY | 2024-12-19 13:39 | XMS_ITS | Encounter Summary ---
Author Organization [employer] s tem Address [id number] [address] [place] [address] Care Team Providers Care Bead Worker Sewing Name Role Phone Michael Steiner DO Primary Care Provider [phone] Encounter Details Date Type Department Care Team (Late st Contact Info) Description 11/01/2024 Telephone [facility] - Family Medicine [address] [place] [address] Juan Diego Esquivel CMA Social History Tobacco Use Types Packs/Day Years Used Date Smoking Tobacco: Former Cigarettes 1 40 0 09/1981 - 09/2021 Smokeless Tobacco: Never Comments:5-6 cigerettes a da y Alcohol Use Standard Drinks/Week Comments Not Currently 0 (1 standard drink = 0.6 oz pur e alcohol) last use 15 years ago [facility] Utilities Answer Date Recorded In the past 12 months has [employer], gas, oil, or water [employer] threatened to shut off services in your [...] you attend [facility] or mormonism services? More than 4 times [...] Answer Date Recorded Total Score 0 10/27/2024 [facility] of Occupat ional [...] lasix. * Telephone Encounter - Juan Diego Esquivel CMA - 11/01/2024 5:29 PM EDT I [...] Support Visit [facility] - Pre Admit [address] [place] [address] 10:00 AM EDT Hospital Encounter [facility] - Endoscopy [address] [place] [address] Michael Steiner, DO [address] [place] [address] Microcytic anemia (Primary Dx) 5 10:00 AM EDT - 5 11:00 AM EDT Surgery [facility] - Endoscopy [address] [facility] [place] [address] Michael Steiner, DO [address] [place] [address] ESOPHAGOGASTRODUODENOSCOPY DIAGNOSTIC [[id number] (CPT )] 5 7:30 AM EDT Appointment [facility] - Cardiovascular [address] [place] [address] Inez Cook, AV SPECIALIST-FEATHER MAKER [address] [place] [address] 5 3:30 PM EDT Office Visit [facility] - Heart Failure Clinic [address] [place] [address] Risa Summers MD [address] [place] [address] 5 1:30 PM EDT Office Visit [facility] Internal Medicine - Family Medicine [address] [place] [address] Michael Steiner, DO [address] [place] [address] Scheduled Procedures Name Priority Associated Diagnoses Date/Ti wy ESOPHAGOGASTRODUODENOSCOPY DIAGNOSTIC microcytic anemia 12/20/2024 10:00 AM EDT ESOPHAGOGASTRODUODENOSCOPY DIAGNOSTIC Microcytic anemia documented as of this encounter Visit Diagnoses Not on filedocumented in this encounter Additional Health Concerns Assessment Noted Time PHQ-9 Depression Total Score: 0 10/28/19 25 4:16 PM EDT documented as of this encounter Care Teams Bead Worker Sewing Relationship Specialty Start Date End Date Michael Steiner DO [address] [place] [address] PCP - General Internal Medicine 12/17/23 documented as of this encounter
--- OUTSIDE RECORDS SUMMARY | 2024-12-19 13:39 | XMS_ITS | Encounter Summary ---
Author Organization [employer] [facility] tem Address [id number] [address] [place] [address] Care Team Providers Care Sensor Operator Name Role Phone Michael Steiner DO Primary Care Provider [phone] Reason for Referral * Consultation (Routine) - Closed Specialty Diagnoses / Procedures Referred By Rick rahman Referred To Contact Orthopaedic Surgery / MED-SURG/ORTHOPEDICS Diagnoses Closed wedge compression fracture of T6 vertebra with routine healing Michael Setiner DO [address] [place] [address] Phone: tel: fax: Jair Huertas DO Phone: tel: fax: Referral ID Status Reason Start Date Expiration Date V isits Requested Visits Authorized [id number] Closed Specialty Services Required 09/14/2023 09/13/2024 4 4 Encounter Details Date Type Department Care Team (Late st Contact Info) Description 09/14/2023 Orders Only [facility] Internal Medicine - Family Medicine [address] [place] [address] Michael Steiner DO [address] [place] [address] Closed wedge compression fracture of T6 vertebra [...] the past 12 months has th e [employer], gas, oil, or water [employer] threatened to shut off services in [...] you attend [facility] or adventism services? More than 4 times [...] Answer Date Recorded Total Score 0 09/09/2023 [facility] [place] of Occupat ional Health - Occupational Stress [...] Info) Description 2:40 PM EDT Support Visit [facility] - Pre Admit [address] [place] [address] 5 10:00 AM EDT Hospital Encounter [facility] - Endoscopy [address] [place] [address] Michael Steiner, [address] [place] [address] Microcytic anemia (Primary Dx) 5 10:00 AM EDT - 5 11:00 AM EDT Surgery [facility] - Endoscopy [address] [facility] [address] Michael Steiner, [address] [address] ESOPHAGOGASTRODUODENOSCOPY DIAGNOSTIC [[id number] (CPT )] 5 7:30 AM EDT Appointment [facility] - Cardiovascular [address] [facility] [place] [address] Inez Cook, KITCHEN SUPERVISOR-WET PRIMER POWDER BLENDER [address] [place] [address] 5 3:30 PM EDT Office Visit [facility] - Heart Failure Clinic [address] [place] [address] Risa Summers MD [address] [place] [address] 5 1:30 PM EDT Office Visit [facility] Internal Medicine - Family Medicine [address] [place] [address] Michael Steiner, DO [address] [place] [address] Scheduled Procedures Name Priority Associated Diagnoses Date/Ti [...] of T6 vertebra with routine healing- Primary Microcytic anemia- Primary Unspecified iron deficiency anemia documented in this encounter Additional Health Concerns Infection Onset Date Last Indicated Resolved Time COVID-19 Rule-Out 12/17/2023 12/17/2023 12/17/2023 1:50 PM EDT Assessment Noted Time PHQ-9 Depression Total Score: 0 09/09/19 1:00 PM EDT documented as of this encounter Care Teams Sensor Operator Relationship Specialty Start Date End Date Michael Steiner DO [address] [place] [id number] PCP - General Internal Medicine 12/17/23 documented as of this encounter
--- OUTSIDE RECORDS SUMMARY | 2024-12-19 13:39 | XMS_ITS | Encounter Summary ---
Author Organization [facility] Sys tem Address [facility] [id number] [address] [place] [address] Care Team Providers Care Vessel Liner Name Role Phone Michael Steiner DO Primary Care Provider [phone] Encounter Details Date Type Department Care Team (Late st Contact Info) Description 07/31/2023 Telephone [facility] Pulmonary/Sleep Medicine [address] [address] Grace Meadows DO [address] [address] Social History Tobacco Use Types Packs/Day Years Used Date Smoking Tobacco: Former Cigarettes 1 40 0 09/1981 - 09/2021 Smokeless Tobacco: Former Chew Comments:5-6 cigerettes a da y Alcohol Use Standard Drinks/Week Comments Not Currently 0 (1 standard drink = 0.6 oz pur e alcohol) last use 15 years ago [facility] Utilities Answer Date Recorded In the past 12 months has [employer] [place] electric, gas, oil, or water company threatened [...] How often do you attend chur or christian services? More than 4 times [...] Answer Date Recorded Total Score 0 07/01/2023 [facility] Occupat ional Health - Occupational [...] Recorded Do you need help finding a [facility] career center and/or a training [...] [facility] [address] [place] [address] 5 10:00 AM EDT Hospital Encounter [facility] - Endoscopy [address] [place] [address] Michael Steiner, DO [address] [place] [address] Microcytic anemia (Primary Dx) 5 10:00 AM EDT - 5 11:00 AM EDT Surgery [facility] - Endoscopy [address] [place] [address] Michael Steiner, DO [address] [place] [address] ESOPHAGOGASTRODUODENOSCOPY DIAGNOSTIC [04672 (CPT )] 5 7:30 AM EDT Appointment [facility] - Cardiovascular [address] [place] [address] Inez Cook, ANIMAL CARE TAKER-INSURANCE HEALTHCARE REPRESENTATIVE [address] [place] [address] 5 3:30 PM EDT Office Visit [facility] - Heart Failure Clinic [address] [place] [address] Risa Summers MD [address] [place] [address] 5 1:30 PM EDT Office Visit [facility] Internal Medicine - Family Medicine [address] [place] [address] Michael Steiner DO [address] [place] [address] Scheduled Procedures Name Priority Associated Diagnoses Date/Ti [...] documented as of this encounter Care Teams Vessel Liner Relationship Specialty Start Date End Date Michael Steiner DO [address] [place] [address] PCP - General Internal Medicine 12/17/23 documented as of this encounter
--- OUTSIDE RECORDS SUMMARY | 2024-12-19 13:39 | XMS_ITS | Encounter Summary ---
Author Organization [employer] Sys [employer] Address [id number] [address] [place] [address] Care Team Providers Care Police Justice Name Role Phone Michael Steiner DO Primary Care Provider Encounter Details Date Type Department Care Team (Late st Contact Info) Description 07/09/2023 Orders Only [facility] Internal Medicine - Family Medicine [address] [place] [address] Michael Steiner DO [address] [place] [address] Chronic heart failure with preserved ejection fraction ([facility]) Social History Tobacco Use Types [...] How often do you attend worship or roman catholic serv ices? Never 01/09/2020 [...] Recorded Do you need help finding a [facility] career center and/or a training program? No [...] 5 2:40 PM EDT Support Visit [facility] - Pre Admit [address] [place] [address] 5 10:00 AM EDT Hospital Encounter [facility] - Endoscopy [address] [place] [address] Michael Steiner, DO [address] [place] [address] Microcytic anemia (Primary Dx) 5 10:00 AM EDT - 5 11:00 AM EDT Surgery [facility] - Endoscopy [address] [facility] [place] [place] [address] Michael Steiner, DO [address] [place] [address] ESOPHAGOGASTRODUODENOSCOPY DIAGNOSTIC [22373 (CPT )] 5 7:30 AM EDT Appointment [facility] - Cardiovascular [address] [place] [address] Inez Cook, BIOLOGY TEACHER-PITTING MACHINE OPERATOR [address] [place] [address] 5 3:30 PM EDT Office Visit [facility] - Heart Failure Clinic [address] [place] [address] Risa Summers MD [address] [place], [place] [phone] 5 1:30 PM EDT Office Visit [facility] Internal Medicine - Family Medicine [address] [place] [address] Michael Steiner, [address] [place] [address] Scheduled Procedures Name Priority Associated Diagnoses Date/Ti il ESOPHAGOGASTRODUODENOSCOPY DIAGNOSTIC microcytic anemia 12/20/2024 10:00 AM [...] documented as of this encounter Care Teams Police Justice Relationship Specialty Start Date End Date Michael Steiner DO [address] [place] [address] PCP - General Internal Medicine 12/17/23 documented as of this encounter
--- OUTSIDE RECORDS SUMMARY | 2024-12-19 13:39 | XMS_ITS | Encounter Summary ---
Author Organization [employer] Address [facility] [id number] [address] [place] [address] Care Team Providers Care Video Game Developer Name Role Phone Michael Steiner DO Primary Care Provider [phone] Encounter Details Date Type Department Care Team (Late st Contact Info) Description 02/03/2024 Telephone [facility] Pulmonary/Sleep Medicine [address] [phone] Shari Garcia RN Social History Tobacco Use Types Packs/Day Years Used Date Smoking Tobacco: Former Cigarettes 1 40 0 09/1981 - 09/2021 Smokeless Tobacco: Never Comments:5-6 cigerettes a da y Alcohol Use Standard Drinks/Week Comments Not Currently 0 (1 standard drink = 0.6 oz pur e alcohol) last use 15 years ago [facility] Utilities Answer Date Recorded In the past 12 months has [employer], gas, oil, or water [employer] threatened to shut off services in your [...] week 07/25/2023 How often do you attend [facility] or temple services? More than 4 times [...] Answer Date Recorded Total Score 0 01/04/2024 [facility] Occupat ional Health [...] line and requested a script fo POC. [facility] from a Paper Sample Clerk. Patient was to be seen in our office on 01-14-24. Office appt was cancelled d/t patient insurance isnot accepted at our office. Patient will need to contact her insurance company and find out what cement handler will be covered under her insurance. Then contact Dr Steiner for a referral. Norma agreeable documented in this encounter Plan of Treatment Upcoming Encounters Date Type Department Care Team (Latest Contact Info) Description 5 2:40 PM EDT Support Visit [facility] - Pre Admit [address] [place] [address] 5 10:00 AM EDT Hospital Encounter [facility] - Endoscopy [address] [place] [address] Michael Steiner, DO [address] [place] [address] Microcytic anemia (Primary Dx) 5 10:00 AM EDT - 5 11:00 AM EDT Surgery [facility] - Endoscopy [address] [facility] [place] [address] Michael Steiner, DO [address] [place] [address] ESOPHAGOGASTRODUODENOSCOPY DIAGNOSTIC [55273 (CPT )] 5 7:30 AM EDT Appointment [facility] - Cardiovascular [address] [place] [address] Inez Cook, TRAVEL AGENT-LIMO DRIVER [address] [place] [address] 5 3:30 PM EDT Office Visit [facility] - Heart Failure Clinic [address] [place] [address] Risa Summers MD [address] [place] [address] 5 1:30 PM EDT Office Visit [facility] Internal Medicine - Family Medicine [address] [place] [address] Michael Steiner, DO [address] [place] [address] Scheduled Procedures Name Priority Associated Diagnoses Date/Ti nv ESOPHAGOGASTRODUODENOSCOPY DIAGNOSTIC microcytic anemia 12/20/2024 10:00 AM EDT ESOPHAGOGASTRODUODENOSCOPY DIAGNOSTIC Microcytic anemia documented as of this encounter Visit Diagnoses Not on filedocumented in this encounter Additional Health Concerns Assessment Noted Time PHQ-9 Depression Total Score: 0 01/04/20 24 1:01 PM EDT documented as of this encounter Care Teams Video Game Developer Relationship Specialty Start Date End Date Michael Steiner DO [address] [place] [address] PCP - General Internal Medicine 12/17/23 documented as of this encounter
--- OUTSIDE RECORDS SUMMARY | 2024-12-19 13:39 | XMS_ITS | Encounter Summary ---
Author Organization [email or web address] Sys [employer] Address [facility] [id number] [address] [place] [address] Care Team Providers Care Varnisher Name Role Phone Michael Steiner DO Primary Care Provider [phone] Encounter Details Date Type Department Care Team (Late st Contact Info) Description 07/31/2023 Telephone [facility] Card[facility] [address] [place] [address] Antoinette Sacnhez CNA Social History Tobacco Use Types Packs/Day [...] Recorded In the past 12 months has [employer], gas, oil, or water [employer] threatened to shut off services in your [...] Answer Date Recorded Total Score 0 07/01/2023 [facility] Occupat ional Health - [...] Description 5 2:40 PM EDT Support Visit [facility] - Pre Admit [address] [place] [address] 5 10:00 AM EDT Hospital Encounter [facility] - Endoscopy [address] [place] [address] Michael Steiner, DO [address] [place] [address] Microcytic anemia (Primary Dx) 5 10:00 AM EDT - 5 11:00 AM EDT Surgery [facility] - Endoscopy [address] [place] [address] Michael Steiner, DO [address] [place] [address] ESOPHAGOGASTRODUODENOSCOPY DIAGNOSTIC [[id number] (CPT )] 5 7:30 AM EDT Appointment [facility] - Cardiovascular [address] [place] [phone] Inez Cook, STRETCHER DRIER OPERATOR-SOLIDWORKS DESIGNER [address] [facility] [place] [address] 5 3:30 PM EDT Office Visit [facility] - Heart Failure Clinic [address] [place] [phone] Risa Summers MD [address] [place] [address] 5 1:30 PM EDT Office Visit [facility] Internal Medicine - Family Medicine [address] [place] [address] Michael Steiner DO [address] [place] [address] Scheduled Procedures Name Priority Associated Diagnoses Date/Ti [...] documented as of this encounter Care Teams Varnisher Relationship Specialty Start Date End Date Michael Steiner DO [address] [place] [address] PCP - General Internal Medicine 12/17/23 documented as of this encounter
--- OUTSIDE RECORDS SUMMARY | 2024-12-19 13:39 | XMS_ITS | Encounter Summary ---
Author Organization [employer] s tem Address [facility] [id number] [address] [place] [address] Care Team Providers Care Hospice Rn Name Role Phone Michael Steiner DO Primary Care Provider [phone] Encounter Details Date Type Department Care Team (Late st Contact Info) Description 08/11/2023 [facility]phone [facility] Internal Medicine - Family Medicine [address] [address] Juan Diego Esquivel CMA Social History Tobacco Use Types Packs/Day Years Used Date Smoking Tobacco: Former Cigarettes 1 40 0 09/1981 - 09/2021 Smokeless Tobacco: Former Chew Comments:5-6 cigerettes a da y Alcohol Use Standard Drinks/Week Comments Not Currently 0 (1 standard drink = 0.6 oz pur e alcohol) last use [address] [facility] Utilities Answer Date Recorded In the past 12 months has [employer], gas, oil, or water [employer] threatened to shut off services in your [...] you attend [facility] or presybeterian services? More than 4 times [...] Answer Date Recorded Total Score 0 08/10/2023 [facility] Occupat ional Health [...] wouldlike to go to Dr Jair Balbuena [address] [place] [address] fax number is [phone]. * Telephone Encounter - Michael Steiner DO [...] Info) Description 2:40 PM EDT Support Visit [facility] - Pre Admit [address] [place] [address] 5 10:00 AM EDT Hospital Encounter [facility] - Endoscopy [address] [place] [address] Michael Steiner, DO [address] [place] [address] Microcytic anemia (Primary Dx) 5 10:00 AM EDT - 5 11:00 AM EDT Surgery [facility] - Endoscopy [address] [place] [address] Michael Steiner, [address] [place] [address] ESOPHAGOGASTRODUODENOSCOPY DIAGNOSTIC [[id number] (CPT )] 5 7:30 AM EDT Appointment [facility] - Cardiovascular [address] [place] [address] Inez Cook, AUDIT SPECIALIST-FREIGHT BREAKER [address] [place] [address] 5 3:30 PM EDT Office Visit [facility] - Heart Failure Clinic [address] [place] [address] Risa Summers MD [address] [place], [place] [address] 5 1:30 PM EDT Office Visit [facility] Internal Medicine - Family Medicine [address] [place] [address] Michael Steiner, DO [address] [place] [address] Scheduled Procedures Name Priority Associated Diagnoses Date/Ti [...] documented as of this encounter Care Teams Hospice Rn Relationship Specialty Start Date End Date Michael Steiner DO [address] [place] [address] PCP - General Internal Medicine 12/17/23 documented as of this encounter
--- OUTSIDE RECORDS SUMMARY | 2024-12-19 13:39 | XMS_ITS | Encounter Summary ---
Author Organization [employer] Address [id number] [address] [place] [address] Care Team Providers Care Review Nurse Name Role Phone Michael Steiner DO Primary Care Provider [phone] Encounter Details Date Type Department Care Team (Late st Contact Info) Description 03/07/2024 Orders Only [facility] Internal Medicine - Family Medicine [address] [place] [address] Michael Steiner DO [address] [place] [address] Chronic heart failure with preserved ejection fraction ([facility]) Social History Tobacco Use Types Packs/Day Years Used Date Smoking Tobacco: Former Cigarettes 1 40 0 09/1981 - 09/2021 Smokeless Tobacco: Never Comments:5-6 cigerettes a da y Alcohol Use Standard Drinks/Week Comments Not Currently 0 (1 standard drink = 0.6 oz pur e alcohol) last use 15 years ago [facility] Utilities Answer Date Recorded In the past 12 months has [employer], gas, oil, or water company threatened [...] often do you attend chur ch or jew services? More than 4 times [...] Answer Date Recorded Total Score 0 01/04/2024 [facility] of Occupat ional Health - Occupational Stress [...] Recorded Do you need help finding a [facility] career center and/or a training program? No [...] Description 5 2:40 PM EDT Support Visit [facility] - Pre Admit [address] [place] [address] 5 10:00 AM EDT Hospital Encounter [facility] - Endoscopy [address] [place] [address] Michael Steiner, DO [address] [place] [address] Microcytic anemia (Primary Dx) 5 10:00 AM EDT - 5 11:00 AM EDT Surgery [facility] - Endoscopy [address] [place] [address] Michael Steiner, DO [address] [place] [address] ESOPHAGOGASTRODUODENOSCOPY DIAGNOSTIC [[id number] (CPT )] 5 7:30 AM EDT Appointment [facility] - Cardiovascular [address] [place] [address] Inez Cook, INSURANCE COMPLIANCE ANALYST-MANAGEMENT COORDINATOR [address] [place] [address] 5 3:30 PM EDT Office Visit [facility] - Heart Failure Clinic [address] [place] [address] Risa Summers MD [address] [place] [address] 5 1:30 PM EDT Office Visit [facility] Internal Medicine - Family Medicine [address] [place] [address] Michael Steiner DO [address] [place] [address] Scheduled Procedures Name Priority Associated Diagnoses Date/Ti me ESOPHAGOGASTRODUODENOSCOPY DIAGNOSTIC microcytic anemia 12/20/2024 10:00 AM EDT ESOPHAGOGASTRODUODENOSCOPY DIAGNOSTIC Microcytic anemia documented as of this encounter Visit Diagnoses Diagnosis Chronic heart failure with preserved ejection fraction ([facility]) Microcytic anemia- Primary Unspecified iron deficiency anemia documented in this encounter Additional Health Concerns Assessment Noted Time PHQ-9 Depression Total Score: 0 01/04/20 1:01 PM EDT documented as of this encounter Care Teams Review Nurse Relationship Specialty Start Date End Date Michael Steiner DO [address] [place] [address] PCP - General Internal Medicine 12/17/23 documented as of this encounter
--- OUTSIDE RECORDS SUMMARY | 2024-12-19 13:39 | XMS_ITS | Encounter Summary ---
Author Organization [employer] Address [facility] [id number] [address] [place] [address] Care Team Providers Care Apprentice Funeral Director Name Role Phone Michael Steiner DO Primary Care Provider Encounter Details Date Type Department Care Team (Late st Contact Info) Description 09/17/2023 Telephone [facility] Pulmonary/Sleep Medicine [address] [address] Shari Garcia RN Social History [...] Recorded In the past 12 months has [employer], gas, oil, or water [employer] threatened to shut off services in your [...] How often do you attend [facility] or roman catholic services? More than 4 [...] Answer Date Recorded Total Score 0 09/09/2023 [facility] of Occupat ional Health - [...] you need help finding a [facility] career center and/or a training program? [...] Garcia RN - 09/17/2023 7:32 AM EDT Wool Carder spoke to patient and informed per Dr [...] Info) Description 2:40 PM EDT Support Visit [facility] - Pre Admit [address] [place] [address] 5 10:00 AM EDT Hospital Encounter [facility] - Endoscopy [address] [place] [address] Michael Steiner, DO [address] [place] [address] Microcytic anemia (Primary Dx) 5 10:00 AM EDT - 5 11:00 AM EDT Surgery [facility] - Endoscopy [address] [place] [address] Michael Steiner, DO [address] [place] [address] ESOPHAGOGASTRODUODENOSCOPY DIAGNOSTIC [44173 (CPT )] 5 7:30 AM EDT Appointment [facility] - Cardiovascular [address] [place] [address] Inez Cook, EDGER FEEDER-MS SQL SERVER DEVELOPER [address] [place] [address] 5 3:30 PM EDT Office Visit [facility] - Heart Failure Clinic [address] [facility] [place] [address] Risa Summers MD [address] [place] [address] 5 1:30 PM EDT Office Visit [facility] Internal Medicine - Family Medicine [address] [place] [address] Michael Steiner, DO [address] [place] [address] Scheduled Procedures Name Priority Associated Diagnoses Date/Ti [...] documented as of this encounter Care Teams Apprentice Funeral Director Relationship Specialty Start Date End Date Michael Steiner DO [address] [place] [address] PCP - General Internal Medicine 12/17/23 documented as of this encounter
--- OUTSIDE RECORDS SUMMARY | 2024-12-19 13:39 | XMS_ITS | Encounter Summary ---
Author Organization [employer] s [employer] Address [facility] [id number] [address] [place] [address] Care Team Providers Care Surgical Technologist Name Role Phone Michael Steiner DO Primary Care Provider [phone] Encounter Details Date Type Department Care Team (Late st Contact Info) Description 01/26/2024 Orders Only [facility] Internal Medicine - Family Medicine [address] [place] [address] Michael Steiner DO [address] [place] [address] Peripheral polyneuropathy (Primary Dx) Social History Tobacco [...] Recorded In the past 12 months has [employer], gas, oil, or water company threatened to [...] often do you attend chur ch or restorationist services? More than 4 times per year [...] Answer Date Recorded Total Score 0 01/04/2024 [facility] of Occupat [...] Description 5 2:40 PM EDT Support Visit [facility] - Pre Admit [address] [place] [address] 5 10:00 AM EDT Hospital Encounter [facility] - Endoscopy [address] [place] [address] Michael Steiner, DO [address] [place] [address] Microcytic anemia (Primary Dx) 5 10:00 AM EDT - 5 11:00 AM EDT Surgery [facility] - Endoscopy [address] [place] [address] Michael Steiner, DO [address] [place] [address] ESOPHAGOGASTRODUODENOSCOPY DIAGNOSTIC [[id number] (CPT )] 5 7:30 AM EDT Appointment [facility] - Cardiovascular [address] [place] [address] Inez Cook, CHIEF NURSE-WASHER ASSEMBLER [address] [place] [address] 5 3:30 PM EDT Office Visit [facility] - Heart Failure Clinic [address] [place] [address] Risa Summers MD [address] [place] [address] 5 1:30 PM EDT Office Visit [facility] Internal Medicine - Family Medicine [address] [place] [address] Michael Steiner DO [address] [place] [address] Scheduled Procedures Name Priority Associated Diagnoses Date/Ti me ESOPHAGOGASTRODUODENOSCOPY DIAGNOSTIC microcytic anemia 12/20/2024 10:00 AM EDT ESOPHAGOGASTRODUODENOSCOPY DIAGNOSTIC Microcytic anemia documented as of this encounter Visit Diagnoses Diagnosis Peripheral polyneuropathy- Primary Microcytic anemia- Primary Unspecified iron deficiency anemia documented in this encounter Additional Health Concerns Assessment Noted Time PHQ-9 Depression Total Score: 0 01/04/20 24 1:01 PM EDT documented as of this encounter Care Teams Surgical Technologist Relationship Specialty Start Date End Date Michael Steiner DO [address] [place] [address] PCP - General Internal Medicine 12/17/23 documented as of this encounter
--- OUTSIDE RECORDS SUMMARY | 2024-12-19 13:39 | XMS_ITS | Encounter Summary ---
Author Organization [employer] s tem Address [id number] [address] [place] [address] Care Team Providers Care Director Of Aviation Name Role Phone Michael Steiner DO Primary Care Provider [phone] Encounter Details Date Type Department Care Team (Late st Contact Info) Description 01/25/2024 Telephone [facility] Internal Medicine - Family Medicine [address] [place] [address] Juan Diego Esquivel CMA Social History Tobacco Use Types Packs/Day Years Used Date Smoking Tobacco: Former Cigarettes 1 40 0 09/1981 - 09/2021 Smokeless Tobacco: Never Comments:5-6 cigerettes a da y Alcohol Use Standard Drinks/Week Comments Not Currently 0 (1 standard drink = 0.6 oz pur e alcohol) last use 15 years ago [facility] Utilities Answer Date Recorded In the past 12 months has [employer], gas, oil, or water [employer] threatened to shut off services in your [...] week 07/25/2023 How often do you attend [facility] or spiritism services? More than 4 times per year [...] Answer Date Recorded Total Score 0 01/04/2024 [facility] [...] follow up appointment. * Telephone Encounter - Sfoya Coe CMA - 01/25/2024 1:37 PM EDT Spoke with the patient and she understands documented in this encounter Plan of Treatment Upcoming Encounters Date Type Department Care Team (Latest Contact Info) Description 2:40 PM EDT Support Visit [facility] - Pre Admit [address] [place] [address] 5 10:00 AM EDT Hospital Encounter [facility] - Endoscopy [address] [place] [address] Michael Steiner, [address] [place] [address] Microcytic anemia (Primary Dx) 5 10:00 AM EDT - 5 11:00 AM EDT Surgery [facility] - Endoscopy [address] [place] [address] Michael Steiner, [address] [address] ESOPHAGOGASTRODUODENOSCOPY DIAGNOSTIC [99093 (CPT )] 5 7:30 AM EDT Appointment [facility] - Cardiovascular [address] [place] [address] Inez Cook, ART APPRAISER-HIDE OR SKIN BUFFER [address] [place] [address] 5 3:30 PM EDT Office Visit [facility] - Heart Failure Clinic [address] [place] [address] Risa Summers MD [address] [place] [address] 5 1:30 PM EDT Office Visit [facility] Physicians Internal Medicine - Family Medicine [address] [place] [address] Michael Steiner, DO [address] [place] [address] Scheduled Procedures Name Priority Associated Diagnoses Date/Ti me ESOPHAGOGASTRODUODENOSCOPY DIAGNOSTIC microcytic anemia 12/20/2024 10:00 AM EDT ESOPHAGOGASTRODUODENOSCOPY DIAGNOSTIC Microcytic anemia documented as of this encounter Visit Diagnoses Not on filedocumented in this encounter Additional Health Concerns Assessment Noted Time PHQ-9 Depression Total Score: 0 01/04/20 1:01 PM EDT documented as of this encounter Care Teams Director Of Aviation Relationship Specialty Start Date End Date Michael Steiner DO [address] [place] [address] PCP - General Internal Medicine 12/17/23 documented as of this encounter
--- OUTSIDE RECORDS SUMMARY | 2024-12-19 13:39 | XMS_ITS | Encounter Summary ---
Author Organization [employer] s tem Address [id number] [address] [place] [address] Care Team Providers Care Psychologist Personnel Name Role Phone Michael Steiner DO Primary Care Provider [phone] Encounter Details Date Type Department Care Team (Late st Contact Info) Description 08/31/2023 Telephone [facility] Internal [facility] - Family Medicine [address] [place] [address] PrestonMonica lo, SHIPFITTER HELPER Social History Tobacco Use Types Packs/Day Years Used Date Smoking Tobacco: Former Cigarettes 1 40 0 09/1981 - 09/2021 Smokeless Tobacco: Former Chew Comments:5-6 cigerettes a da y Alcohol Use Standard Drinks/Week Comments Not Currently 0 (1 standard drink = 0.6 oz pur e alcohol) last use 15 years ago [facility] Utilities Answer Date Recorded In the past 12 months has [employer], gas, oil, or water [employer] threatened to shut off services in [...] week 07/25/2023 How often do you attend [facility] or pentecostalism services? More than 4 times [...] 2:40 PM EDT Support Visit [facility] - Pre Admit [address] [address] 5 10:00 AM EDT Hospital Encounter [facility] - Endoscopy [address] [place] [address] Michael Steiner, DO [address] [place] [address] Microcytic anemia (Primary Dx) 5 10:00 AM EDT - 5 11:00 AM EDT Surgery [facility] - Endoscopy [address] [place] [address] Michael Steiner, DO [address] [place] [address] ESOPHAGOGASTRODUODENOSCOPY DIAGNOSTIC [[id number] (CPT )] 5 7:30 AM EDT Appointment [facility] - Cardiovascular [address] [place] [address] Inez Cook, ENGINEER CHIEF-BUCKET PUSHER [address] [place] [address] 5 3:30 PM EDT Office Visit [facility] - Heart Failure Clinic [address] [place] [address] Risa Summers MD [address] [place] [address] 1:30 PM EDT Office Visit [facility] Internal Medicine - Family Medicine [address] [place] [address] Michael Steiner DO [address] [place], [place] [phone] Scheduled Procedures Name Priority Associated Diagnoses Date/Ti [...] documented as of this encounter Care Teams Psychologist Personnel Relationship Specialty Start Date End Date Michael Steiner DO [address] [place] [address] PCP - General Internal Medicine 12/17/23 documented as of this encounter
--- OUTSIDE RECORDS SUMMARY | 2024-12-19 13:40 | XMS_ITS | Encounter Summary ---
Author Organization [employer] tem Address [id number] [address] [place] [address] Care Team Providers Care Strings Teacher Name Role Phone JoansunshineMichael DO Primary Care Provider [phone] Encounter Details Date Type Department Care Team (Latest Contact Info) Description 12/14/2024 Travel Social History Tobacco Use Types Packs/Day Years Used Date Smoking Tobacco: Former Cigarettes 1 40 0 09/1981 - 09/2021 Smokeless Tobacco: Never Comments:5-6 cigerettes a da y Alcohol Use Standard Drinks/Week Comments Not Currently 0 (1 standard drink = 0.6 oz pur e alcohol) last use 15 years ago [facility] Utilities Answer Date Recorded In the [...] often do you attend chur ch or samaritan services? More than 4 times per year [...] Answer Date Recorded Total Score 0 12/15/2024 [facility] of Occupat [...] Description 5 2:40 PM EDT Support Visit [facility] - Pre Admit [address] [place] [address] 5 10:00 AM EDT Hospital Encounter [facility] - Endoscopy [address] [place] [address] Michael Steiner, DO [address] [place] [address] Microcytic anemia (Primary Dx) 5 10:00 AM EDT - 5 11:00 AM EDT Surgery [facility] - Endoscopy [address] [place] [address] Michael Steiner, DO [address] [place] [address] ESOPHAGOGASTRODUODENOSCOPY DIAGNOSTIC [[id number] (CPT )] 5 7:30 AM EDT Appointment [facility] - Cardiovascular [address] [place] [address] Inez Cook, OPERATIONS AGENT-ADMITTING INTERVIEWER [address] [place] [address] 5 3:30 PM EDT Office Visit [facility] - Heart Failure Clinic [address] [place] [address] iRsa Summers MD [address] [place] [address] 5 1:30 PM EDT Office Visit [facility]icians Internal Medicine - Family Medicine [address] [place] [address] Michael Steiner DO [address] [place], [place] [address] Scheduled Procedures Name Priority Associated Diagnoses Date/Ti me ESOPHAGOGASTRODUODENOSCOPY DIAGNOSTIC microcytic anemia 12/20/2024 10:00 AM EDT ESOPHAGOGASTRODUODENOSCOPY DIAGNOSTIC Microcytic anemia documented as of this encounter Goals Goal Patient Goal Type Associated Problems Recent Progress Patient-Stated? Author home General Yes Jimena Snider LSW Note: Evaluation of progress towards goal: feeling better documented as of this encounter Visit Diagnoses Not on filedocumented in this encounter Additional Health Concerns Assessment Noted Time PHQ-9 Depression Total Score: 0 11/08/19 25 2:16 PM EDT documented as of this encounter Care Teams Strings Teacher Relationship Specialty Start Date End Date Michael Steiner DO [address] [place], [place] [address] PCP - General Internal Medicine 12/17/23 documented as of this encounter
--- OUTSIDE RECORDS SUMMARY | 2024-12-19 13:40 | XMS_ITS | Encounter Summary ---
Author Organization [employer] Address [id number] [address] [place] [address] Care Team Providers Care Technical Stenographer Name Role Phone Michael Steiner DO Primary Care Provider [phone] Encounter Details Date Type Department Care Team (Late st Contact Info) Description 02/06/2021 Telephone [facility] Cardiology [address] [place] [address] Ching Gay RN Social History Tobacco Use [...] week 01/09/2020 How often do you attend faith or druze serv ices? Never 01/09/2020 Do you belong [...] Recorded Do you need help finding a [employer] career center and/or a training program? No [...] Description 5 2:40 PM EDT Support Visit [facility] - Pre Admit [address] [place] [address] 5 10:00 AM EDT Hospital Encounter [facility] - Endoscopy [address] [place] [address] Michael Steiner, DO [address] [place] [address] Microcytic anemia (Primary Dx) 5 10:00 AM EDT - 5 11:00 AM EDT Surgery [facility] - Endoscopy [address] [place] [address] Michael Steiner, DO [address] [place] [address] ESOPHAGOGASTRODUODENOSCOPY DIAGNOSTIC [[id number] (CPT )] 5 7:30 AM EDT Appointment [facility] - Cardiovascular [address] [place] [address] Inez Cook, PIPE FITTINGS MOLDER-PATRIOT MISSILE [employer] ARTILLERY [address] [facility] [place] [address] 5 3:30 PM EDT Office Visit [facility] - Heart Failure Clinic [address] [place] [address] Risa Summers MD [address] [place] [address] 5 1:30 PM EDT Office Visit [facility] Physicians Internal Medicine - Family Medicine [address] [place] [address] Michael Steiner DO [address] [place] [address] Scheduled Procedures Name Priority Associated Diagnoses Date/Ti [...] 07/25/2023 7:25 PM EDT COVID-19 Rule-Out 12/17/2023 12/17/202312/17/2023 1:50 PM EDT Assessment Noted Time PHQ-9 Depression Total Score: 0 08/07/19 21 6:36 PM EDT documented as of this encounter Care Teams Technical Stenographer Relationship Specialty Start Date End Date Michael Steiner DO [address] [place] [address] PCP - General Internal Medicine 12/17/23 documented as of this encounter
--- OUTSIDE RECORDS SUMMARY | 2024-12-19 13:40 | XMS_ITS ---
Author Organization [employer] [facility] tem Address [id number] [address] [place] [address] Care Team Providers Care Litigation Counsel Name Role Phone Michael Steiner DO Primary Care Provider [phone] Transitional Care Management Status:Closed (Closed) Start date:12/06/2024 End date:12/08/2024 Close reason:Call completed Continued Care and Services Coordination
--- OUTSIDE RECORDS SUMMARY | 2024-12-19 13:40 | XMS_ITS | Encounter Summary ---
Author Organization [facility] tem Address [id number] [address] [place] [address] Care Team Providers Care Restaurant Operations Manager Name Role Phone Michael Steiner DO Primary Care Provider [phone] Encounter Details Date Type Department Care Team (Late st Contact Info) Description 12/15/2024 Results Follow-Up [facility] Physicians Internal Medicine - Family Medicine [address] [place] [address] Michael Steiner DO [address] [place] [address] Basic Metabolic Panel Social History Tobacco Use Types Packs/Day Years Used Date Smoking Tobacco: Former Cigarettes 1 40 0 09/1981 - 09/2021 Smokeless Tobacco: Never Comments:5-6 cigerettes a da y Alcohol Use Standard Drinks/Week Comments Not Currently 0 (1 standard drink = 0.6 oz pur e alcohol) last use 15 years ago [facility] Utilities Answer Date Recorded In the [...] Answer Date Recorded Total Score 0 12/15/2024 [facility] of Occupat ional Health - [...] 2:40 PM EDT Support Visit [facility] - Pre Admit [address] [place] [address] [phone] 5 10:00 AM EDT Hospital Encounter [facility] - Endoscopy [address] [place] [address] Michael Steiner, DO [address] [place] [address] Microcytic anemia (Primary Dx) 5 10:00 AM EDT - 5 11:00 AM EDT Surgery [facility] - Endoscopy [address] [place] [address] Michael Steiner, DO [address] [place] [address] ESOPHAGOGASTRODUODENOSCOPY DIAGNOSTIC [[id number] (CPT )] 5 7:30 AM EDT Appointment [facility] - Cardiovascular [address] [place] [address] Inez Cook, CAMPUS RECRUITING COORDINATOR-SURVIVAL SPECIALIST [address] [place] [address] 5 3:30 PM EDT Office Visit [facility] - Heart Failure Clinic [address] [place] [address] Risa Summers MD [address] [place] [address] 5 1:30 PM EDT Office Visit [facility] Physicians Internal Medicine - Family Medicine [address] [place] [address] Michael Steiner DO [address] [place] [address] Scheduled Procedures Name Priority Associated Diagnoses Date/Ti [...] Consuelo Longoria documented as of this encounter Visit Diagnoses Not on filedocumented in this encounter Additional Health Concerns Active Problems Noted Date Diagnosed Date Autogenerated Problem 12/15/2024 Assessment Noted Time PHQ-9 Depression Total Score: 0 12/16/19 25 12:36 PM EDT documented as of this encounter Care Teams Restaurant Operations Manager Relationship Specialty Start Date End Date Michael Steiner DO [address] [place] [address] PCP - General Internal Medicine 12/17/23 documented as of this encounter
--- OUTSIDE RECORDS SUMMARY | 2024-12-19 13:40 | XMS_ITS | Encounter Summary ---
Author Organization [employer] Address [id number] [address] [place] [address] Care Team Providers Care Optical Fabrication Technician Name Role Phone Michael Steiner DO Primary Care Provider [phone] Reason for Visit * Reason Onset Date Comments PT Discharge 01/10/2020 Encounter Details Date Type Department Care Team (Late st Contact Info) Description 01/10/2020 [facility] [address] [place] [address] Jamie Rodriguez DO [address] [place] [address], [address] [place], [place] [phone] PT Discharge Social History Tobacco Use Types [...] How often do you attend mu-ism or oriental orthodox serv ices? Never 01/09/2020 [...] Recorded Do you need help finding a [employer] bird [employer] career center and/or a training program? No [...] procedure list: per [facility]. Pt dcd from [facility] s/p CATH. Needs 7-10 day f/u. Orders to scheduling. car documented in this encounter Plan of Treatment Upcoming Encounters Date Type Department Care Team (Latest Contact Info) Description 5 2:40 PM EDT Support Visit [facility] - Pre Admit [address] [place] [address] 5 10:00 AM EDT Hospital Encounter [facility] - Endoscopy [address] [place] [address] Michael Steiner, DO [address] [place] [address] Microcytic anemia (Primary Dx) 5 10:00 AM EDT - 5 11:00 AM EDT Surgery [facility] - Endoscopy [address] [place] [address] Michael Steiner, DO [address] [place] [address] ESOPHAGOGASTRODUODENOSCOPY DIAGNOSTIC [[id number] (CPT )] 5 7:30 AM EDT Appointment [facility] - Cardiovascular [address] [place] [address] Inez Cook, CLINICAL NURSING PROFESSOR-MARBLE CEILING INSTALLER [address] [place] [address] 5 3:30 PM EDT Office Visit [facility] - Heart Failure Clinic [address] [place] [address] Risa Summers MD [address] [place] [address] 1:30 PM EDT Office Visit [facility] Internal Medicine - Family Medicine [address] [place] [address] Michael Steiner DO [address] [place], [place] [address] Scheduled Procedures Name Priority Associated Diagnoses Date/Ti [...] documented as of this encounter Care Teams Optical Fabrication Technician Relationship Specialty Start Date End Date Michael Steiner DO [address] [place] [address] PCP - General Internal Medicine 12/17/23 documented as of this encounter
--- OUTSIDE RECORDS SUMMARY | 2024-12-19 13:40 | XMS_ITS ---
Author Organization [employer] [facility] tem Address [id number] [address] [place] [address] Care Team Providers Care Vp Emerging Media Name Role Phone Michael Steiner DO Primary Care Provider [phone] Transitional Care Management Status:Closed (Closed) Start date:12/03/2024 Enrollment date:12/03/2024 End date:12/06/2024 Close reason:Patient readmitted Continued Care and Services Coordination
--- OUTSIDE RECORDS SUMMARY | 2024-12-19 13:40 | XMS_ITS | Encounter Summary ---
Author Organization [employer] Address [facility] [id number] [address] [place] [address] Care Team Providers Care Telephony Engineer Name Role Phone JoansunshineMichael DO Primary Care Provider [phone] Encounter Details Date Type Department Care Team (Latest Contact Info) Description 12/12/2024 Travel Social History Tobacco Use Types Packs/Day Years Used Date Smoking Tobacco: Former Cigarettes 1 40 0 09/1981 - 09/2021 Smokeless Tobacco: Never Comments:5-6 cigerettes a da y Alcohol Use Standard Drinks/Week Comments Not Currently 0 (1 standard drink = 0.6 oz pur e alcohol) last use 15 years ago [facility] Utilities Answer Date Recorded In the [...] often do you attend chur ch or baptist services? More than 4 times [...] Answer Date Recorded Total Score 0 11/07/2024 [facility] - [...] Description 5 2:40 PM EDT Support Visit [facility] - Pre Admit [address] [place] [address] 5 10:00 AM EDT Hospital Encounter [facility] - Endoscopy [address] [place] [address] Michael Steiner, DO [address] [place] [address] Microcytic anemia (Primary Dx) 5 10:00 AM EDT - 5 11:00 AM EDT Surgery [facility] - Endoscopy [address] [place] [address] Michael Steiner, DO [address] [place] [address] ESOPHAGOGASTRODUODENOSCOPY DIAGNOSTIC [[id number] (CPT )] 5 7:30 AM EDT Appointment [facility] - Cardiovascular [address] [place] [address] Inez Cook, CURATOR ZOOLOGICAL MUSEUM-RATE MANAGER [address] [place] [address] 5 3:30 PM EDT Office Visit [facility] - Heart Failure Clinic [address] [place] [address] Risa Summers MD [address] [place] [address] 5 1:30 PM EDT Office Visit [facility] Physicians Internal Medicine - Family Medicine [address] [place] [address] Michael Steiner DO [address] [place], [place] [phone] Scheduled Procedures Name Priority Associated Diagnoses Date/Ti [...] documented as of this encounter Care Teams Telephony Engineer Relationship Specialty Start Date End Date Michael Steiner DO [address] [place], [place] [phone] PCP - General Internal Medicine 12/17/23 documented as of this encounter
--- OUTSIDE RECORDS SUMMARY | 2024-12-19 13:40 | XMS_ITS | Encounter Summary ---
Author Organization [employer] tem Address [id number] [address] [place] [address] Care Team Providers Care Cold Meat Cook Name Role Phone JoanMichael gonsalez Janae CABRERA Primary Care Provider [phone] Reason for Visit * Reason Onset Date Comments Transition Of Care 12/08/2024 Encounter Details Date Type Department Care Team (Late st Contact Info) Description 12/08/2024 [facility] - [facility] [address] [facility] [facility] [place] [phone] Liz Norman, outdoor adventure guides Of Care Social History Tobacco Use Types Packs/Day Years Used Date Smoking Tobacco: Former Cigarettes 1 40 0 09/1981 - 09/2021 Smokeless Tobacco: Never Comments:5-6 cigerettes a da y Alcohol Use Standard Drinks/Week Comments Not Currently 0 (1 standard drink = 0.6 oz pur e alcohol) last use 15 years ago [facility] Utilities Answer Date Recorded In the [...] week 07/25/2023 How often do you attend [facility] or taoism services? More than 4 times per year [...] Answer Date Recorded Total Score 0 12/15/2024 [facility] [...] encounter Miscellaneous Notes * Telephone Encounter - Liz Norman RN - 12/08/2024 7:48 AM EDT Transition of Care (*required) *Additional Questions/Concerns Requiring PCP Follow-Up: -Patient has ZACHARY appointment on 12/15/2024 This documentation is being used for Transition of Care purposes: Yes Goal: Patient will demonstrate a safe transition from hospital to home Diagnosis on Discharge: Discharge diagnoses: Principal Problem: Acute on chronic respiratory failure with hypoxia and hypercapnia ([facility]) Active Problems: Bipolar 2 disorder, major depressive episode ([facility]) Stage 3a chronic kidney disease ([facility] Pulmonary hypertension ([facility]) Discharge Specialty: Other *Name of Discharging Facility: [facility] Date of Facility Discharge: 12/04/24-12/06/2024 Date of Interactive Contact and Name of Remelt Furnace Expediter: 12/08/24 0956 Unable to reach patient. LVM 12/08/24 12:18 pm Spoke to patient *Medication Review Completed: No START taking: guaiFENesin (MUCINEX) predniSONE (DELTASONE) CHANGE how you take: hydrOXYzine (ATARAX) pregabalin (LYRICA) STOP taking: torsemide 20 mg tablet (DEMADEX) Medication Reconciliation Questions/Concerns: -Reviewed discharge changes to medications -Declines medications review -Patient picked up medications and started taking as prescribed -Denies questions or concerns *Follow Up Appointments with Providers: Primary: Michael Steiner Jr, DO 12/15/24 Specialty: Specialty: Specialty: Review of Pending Lab/Diagnostic Tests and Plan for Completion: NA Assessment and Support of Treatment Regimen Adherence and Medication Management: -Patient states she is doing okay. Denies SOB, chest pain, heart palpitations and dizziness. Patient states a little BLE swelling. Patient has dizziness at times. Denies new or worsening symptoms Patient states she is wearing her BiPAP nightly -Diet Type: Level 6 Soft and Bite Sized diet Sodium Modifiers: No Added Salt (3-4 gm Sodium) -Reviewed with patient. Wear BiPAP nightly -No Smoking -Denies questions or concerns Education Provided by ACN to Support Self-Management, Independent Living and ADLs: -Reviewed discharge instructions -Call the office for questions, concerns, new, worsening or recurring S&S -Call 911 or go to ED for urgent issues such as chest pain or sudden dyspnea -Verbalizes understanding of above Communication with Home Health Agencies and Other Services Utilized/Needed by the Patient: NA * Telephone Encounter - Michael Steiner DO - 12/08/2024 7:48 AM EDT Message noted. documented in this encounter Plan of Treatment Upcoming Encounters Date Type Department Care Team (Latest Contact Info) Description 5 2:40 PM EDT Support Visit [facility] - Pre Admit [address] [place] [address] 5 10:00 AM EDT Hospital Encounter [facility] - Endoscopy [address] [place] [address] Michael Steiner, [address] [place] [address] Microcytic anemia (Primary Dx) 5 10:00 AM EDT - 5 11:00 AM EDT Surgery [facility] - Endoscopy [address] [place] [address] Michael Steiner, DO [address] [place] [address] ESOPHAGOGASTRODUODENOSCOPY DIAGNOSTIC [62509 (CPT )] 5 7:30 AM EDT Appointment [facility] - Cardiovascular [address] [facility] [place] [address] Inze Cook, WINCH DRIVER-AU PAIR [address] [place] [address] 5 3:30 PM EDT Office Visit [facility] - Heart Failure Clinic [address] [place] [phone] Risa Summers MD [address] [place], [place] [phone] 5 1:30 PM EDT Office Visit [facility] Physicians Internal Medicine - Family Medicine [address] [place] [phone] Michael Steiner, DO [address] [place] [address] Scheduled Procedures Name Priority Associated Diagnoses Date/Ti dc ESOPHAGOGASTRODUODENOSCOPY DIAGNOSTIC microcytic anemia 12/20/2024 10:00 AM [...] documented as of this encounter Care Teams Cold Meat Cook Relationship Specialty Start Date End Date Michael Steiner DO [address] [place] [address] PCP - General Internal Medicine 12/17/23 documented as of this encounter
--- OUTSIDE RECORDS SUMMARY | 2024-12-19 13:40 | XMS_ITS | Encounter Summary ---
Author Organization [employer] tem Address [id number] [address] [place] [address] Care Team Providers Care Cardiology Clinical Nurse Specialist Name Role Phone Michael Steiner DO Primary Care Provider [phone] Encounter Details Date Type Department Care Team (Late st Contact Info) Description 12/15/2024 Telephone [facility] Internal Medicine - Family Medicine [address] [place] [phone] Sofya Coe CMA Social History Tobacco Use [...] Recorded In the past 12 months has [employer], gas, oil, or water [employer] threatened to shut off services in your [...] you attend [facility] or jewish services? More than 4 [...] Answer Date Recorded Total Score 0 12/15/2024 [facility] Occupat ional Health [...] encounter Miscellaneous Notes * Telephone Encounter - Sofya Coe CMA - 12/15/2024 1:27 PM EDT This patient is scheduled for her EGD for Microcytic Anemia on Dec 20 at 10:00am * Telephone Encounter - Michael Steiner DO - 12/15/2024 1:27 PM EDT Message noted. H&P done documented in this encounter Plan of Treatment Upcoming Encounters Date Type Department Care Team (Latest Contact Info) Description 2:40 PM EDT Support Visit [facility] - Pre Admit [address] [place] [address] 10:00 AM EDT Hospital Encounter [facility] - Endoscopy [address] [place] [address] Michael Steiner, [address] [place] [address] Microcytic anemia (Primary Dx) 5 10:00 AM EDT - 5 11:00 AM EDT Surgery [facility] - Endoscopy [address] [facility] [place] [address] Michael Steiner, DO [address] [place] [address] ESOPHAGOGASTRODUODENOSCOPY DIAGNOSTIC [83896 (CPT )] 5 7:30 AM EDT Appointment [facility] - Cardiovascular [address] [place] [phone] Inez Cook, CENTRAL OFFICE MECHANIC-STRAIGHTENING MACHINE OPERATOR [address] [place] [address] 5 3:30 PM EDT Office Visit [facility] - Heart Failure Clinic [address] [place] [phone] Risa Summers MD [address] [place], [place] [phone] 5 1:30 PM EDT Office Visit [facility] Physicians Internal Medicine - Family Medicine [address] [place] [phone] Michael Steiner, DO [address] [place] [address] Scheduled Procedures Name Priority Associated Diagnoses Date/Ti nm ESOPHAGOGASTRODUODENOSCOPY DIAGNOSTIC microcytic anemia 12/20/2024 10:00 AM EDT ESOPHAGOGASTRODUODENOSCOPY DIAGNOSTIC Microcytic anemia documented as of this encounter Goals Goal Patient Goal Type Associated Problems Recent Progress Patient-Stated? Author home General Yes Jimena Snider LSW Note: Evaluation of progress towards goal: feeling better Autogenerated Goal Care Plan Autogenerated Problem No Longoria Consuelo documented as of this encounter Visit Diagnoses Not on filedocumented in this encounter Additional Health Concerns Active Problems Noted Date Diagnosed Date Autogenerated Problem 12/15/2024 Assessment Noted Time PHQ-9 Depression Total Score: 0 12/16/19 25 12:36 PM EDT documented as of this encounter Care Teams Cardiology Clinical Nurse Specialist Relationship Specialty Start Date End Date Michael Steiner DO [address] [place] [address] PCP - General Internal Medicine 12/17/23 documented as of this encounter
--- OUTSIDE RECORDS SUMMARY | 2024-12-19 13:40 | XMS_ITS | Encounter Summary ---
Author Organization [facility] tem Address [facility] [id number] [address] [place] [address] Care Team Providers Care Leather Worker Name Role Phone Michael Steiner DO Primary Care Provider [phone] Encounter Details Date Type Department Care Team (Late st Contact Info) Description 12/12/2024 Results Follow-Up [facility] - Heart Failure Clinic [address] [place] [address] Kacey Sims RN Basic Metabolic Panel Social History Tobacco Use [...] Recorded In the past 12 months has [employer], gas, oil, or water [employer] threatened to shut off services in your [...] 07/25/2023 How often do you attend [facility] or faith services? More than 4 times [...] Answer Date Recorded Total Score 0 12/15/2024 [facility] of Occupat ional Health - Occupational [...] Description 5 2:40 PM EDT Support Visit [facility] - Pre Admit [address] [place] [address] 5 10:00 AM EDT Hospital Encounter [facility] - Endoscopy [address] [place] [address] Michael Steiner, DO [address] [place] [address] Microcytic anemia (Primary Dx) 5 10:00 AM EDT - 5 11:00 AM EDT Surgery [facility] - Endoscopy [address] [facility] [place] [place] [address] Michael Steiner, DO [address] [place] [address] ESOPHAGOGASTRODUODENOSCOPY DIAGNOSTIC [24699 (CPT )] 5 7:30 AM EDT Appointment [facility] - Cardiovascular [address] [place] [address] Inez Cook, SAS DEVELOPER-AUTOMOTIVE ACCESSORY INSTALLER [address] [place] [address] 5 3:30 PM EDT Office Visit [facility] - Heart Failure Clinic [address] [place] [address] Risa Summers MD [address] [place] [address] 5 1:30 PM EDT Office Visit [facility] Physicians Internal Medicine - Family Medicine [address] [place] [phone] Michael Steiner DO [address] [place] [address] Scheduled Orders Name Type Priority Associated Diagnoses Orde r Schedule Basic Metabolic Panel Lab Routine Chronic heart failure with preserved ejection fraction ([facility]) 1 Occurrences starting 12/12/2024 until 12/12/2025 Scheduled Procedures Name Priority Associated Diagnoses Date/Ti [...] Chronic heart failure with preserved ejection fraction ([facility])- Primary Microcytic anemia- Primary Unspecified iron deficiency anemia documented in this encounter Additional Health Concerns Assessment Noted Time PHQ-9 Depression Total Score: 0 11/08/19 25 2:16 PM EDT documented as of this encounter Care Teams Leather Worker Relationship Specialty Start Date End Date Michael Steiner DO [address] [place] [address] PCP - General Internal Medicine 12/17/23 documented as of this encounter
--- OUTSIDE RECORDS SUMMARY | 2024-12-19 13:40 | XMS_ITS | Encounter Summary ---
Author Organization [employer] tem Address [id number] [address] [place] [address] Care Team Providers Care Insurance Sales Producer Name Role Phone Michael Steiner DO Primary Care Provider [phone] Encounter Details Date Type Department Care Team (Late st Contact Info) Description 11/21/2024 [facility] Internal [facility] - Family Medicine [address] [place] [phone] Juan Diego Esquivel CMA Social History Tobacco [...] Recorded In the past 12 months has [employer], gas, oil, or water [employer] threatened to shut off services in your [...] do you attend [facility] or congregation services? More than 4 [...] Answer Date Recorded Total Score 0 11/07/2024 [facility] Occupat ional Health [...] Encounter - Juan Diego Esquivel CMA - 11/21/2024 11:16 AM EDT [facility] [place] [phone]. Called and states the Certificate of medical necessity needs to have type of incontinence and the length of need and the last time she seen you on this paper. Re Submit fax to [phone]. * Telephone Encounter - Michael Steiner DO - 11/21/2024 11:16 AM EDT Message noted. I will address at her next visit documented in this encounter Plan of Treatment Upcoming Encounters Date Type Department Care Team (Latest Contact Info) Description 2:40 PM EDT Support Visit [facility] - Pre Admit [address] [place] [address] 10:00 AM EDT Hospital Encounter [facility] - Endoscopy [address] [facility] [address] Michael Steiner DO [address] [place] [address] Microcytic anemia (Primary Dx) 5 10:00 AM EDT - 5 11:00 AM EDT Surgery [facility] - Endoscopy [address] [place] [address] Michael Steiner, DO [address] [place] [address] ESOPHAGOGASTRODUODENOSCOPY DIAGNOSTIC [04694 (CPT )] 5 7:30 AM EDT Appointment [facility] - Cardiovascular [address] [facility] [place] [address] Inez Cook, GRADER PATROL-TIRE FIXER [address] [place] [address] 5 3:30 PM EDT Office Visit [facility] - Heart Failure Clinic [address] [place] [address] Risa Summers MD [address] [place], [place] [address] 5 1:30 PM EDT Office Visit [facility] Physicians Internal Medicine - Family Medicine [address] [place] [address] Michael Steiner, [address] [place] [address] Scheduled Procedures Name Priority Associated Diagnoses Date/Ti az ESOPHAGOGASTRODUODENOSCOPY DIAGNOSTIC microcytic anemia 12/20/2024 10:00 AM EDT ESOPHAGOGASTRODUODENOSCOPY DIAGNOSTIC Microcytic anemia documented as of this encounter Visit Diagnoses Not on filedocumented in this encounter Additional Health Concerns Assessment Noted Time PHQ-9 Depression Total Score: 0 11/08/19 25 2:16 PM EDT documented as of this encounter Care Teams Insurance Sales Producer Relationship Specialty Start Date End Date Michael Steiner DO [address] [place] [phone] PCP - General Internal Medicine 12/17/23 documented as of this encounter
--- OUTSIDE RECORDS SUMMARY | 2024-12-19 13:40 | XMS_ITS | Encounter Summary ---
Author Organization [facility] [employer] [facility] tem Address [id number] [address] [place] [address] Care Team Providers Care Merchandise Flow Manager Name Role Phone Michael Steiner DO Primary Care Provider [phone] Encounter Details Date Type Department Care Team (Late st Contact Info) Description 11/29/2024 Results Follow-Up [facility] Physicians Internal Medicine - Family Medicine [address] [place] [address] Michael Steiner DO [address] [place] [address] X-ray knee right 3 views Social History Tobacco Use Types Packs/Day Years Used Date Smoking Tobacco: Former Cigarettes 1 40 0 09/1981 - 09/2021 Smokeless Tobacco: Never Comments:5-6 cigerettes a da y Alcohol Use Standard Drinks/Week Comments Not Currently 0 (1 standard drink = 0.6 oz pur e alcohol) last use 15 years ago [facility] Utilities Answer Date Recorded In the past 12 months has [employer], gas, oil, or water company threatened to [...] Answer Date Recorded Total Score 0 11/07/2024 [facility] of Occupat ional Health - [...] Recorded Do you need help finding a [facility] career center and/or a training program? No 07/25/2023 Hunger Screening Answer Date Recorded Within the past 12 months we worried whether our food would run out before we got money to buy more. Never True 12/03/2024 Within the past 12 months th e food we bought just didn't last and we didn't have money to get more. Never True 12/03/2024 Purpose - Life Answer Date Recorded I [...] 2:40 PM EDT Support Visit [facility] - Pre Admit [address] [place] [address] 5 10:00 AM EDT Hospital Encounter [facility] - Endoscopy [address] [place] [address] Michael Steiner, DO [address] [place] [address] Microcytic anemia (Primary Dx) 5 10:00 AM EDT - 5 11:00 AM EDT Surgery [facility] - Endoscopy [address] [place] [address] Michael Steiner, DO [address] [place] [address] ESOPHAGOGASTRODUODENOSCOPY DIAGNOSTIC [75131 (CPT )] 5 7:30 AM EDT Appointment [facility] - Cardiovascular [address] [place] [address] Inez Cook, ABRASIVES SALES REPRESENTATIVE-CHAIRMAN & CO FOUNDER [address] [place] [phone] 5 3:30 PM EDT Office Visit [facility] - Heart Failure Clinic [address] [place] [address] Risa Summers MD [address] [place] [address] 5 1:30 PM EDT Office Visit [facility] Physicians Internal Medicine - Family Medicine [address] [place] [address] Michael Steiner DO [address] [place] [address] Scheduled Procedures Name Priority Associated Diagnoses Date/Ti me ESOPHAGOGASTRODUODENOSCOPY DIAGNOSTIC microcytic anemia 12/20/2024 10:00 AM EDT ESOPHAGOGASTRODUODENOSCOPY DIAGNOSTIC Microcytic anemia documented as of this encounter Visit Diagnoses Not on filedocumented in this encounter Additional Health Concerns Assessment Noted Time PHQ-9 Depression Total Score: 0 11/08/19 25 2:16 PM EDT documented as of this encounter Care Teams Merchandise Flow Manager Relationship Specialty Start Date End Date Michael Steiner DO [address] [place] [address] PCP - General Internal Medicine 12/17/23 documented as of this encounter
--- OUTSIDE RECORDS SUMMARY | 2024-12-19 13:40 | XMS_ITS | Clinical Summary ---
Author Organization Paices tem Address [id number] 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 10.7 g 10 024 Active acetaminophen (TYLENOL) 325 mg tablet Take 2 tablets (650 mg total) by mouth every 4 (four) hours as needed for pain or headaches. 30 tablet 024 Active clonazePAM (KlonoPIN) 0.5 mg tablet 024 Active lamoTRIgine (LaMICtal) 150 mg tablet Take 1 tablet (150 mg total) by mouth in the morning. 024 Active spironolactone (ALDACTONE) 25 mg tabletIndications: Shortness of breath,Chronic heart failure with preserved ejection fraction (CMS-HCC) Take 1 tablet (25 mg total) by mouth in the morning. 90 tablet 024 Active atorvastatin (LIPITOR) 80 mg tabletIndications: Atherosclerosis of [place] coronary artery of [place] heart without angina pectoris,Hx of hyperlipidemia Take 1 tablet (80 mg total) by mouth in the morning. 90 tablet 3 024 Active ezetimibe (ZETIA) 10 mg tabletIndications: Atherosclerotic heart disease of [place] coronary artery with other forms of angina pectoris Take 1 tablet (10 mg total) by mouth in the morning. 90 tablet 1 025 Active empagliflozin (JARDIANCE) 10 mg tablet tabletIndications: Chronic heart failure with preserved ejection fraction (CMS-HCC),Atherosc lerosis of [place] coronary artery of [place] heart without angina pectoris Take 1 tablet (10 mg total) by mouth in the morning. TAKE 1 TABLET (10 MG TOTAL) BY MOUTH IN THE MORNING. 90 tablet 1 025 Active cyanocobalamin 1000 MCG tablet Acti ve TRINTELLIX 10 mg tablet Take 1 tablet (10 mg total) by mouth in the morning. 025 Active celecoxib (CeleBREX) 200 mg capsuleIndications :Arthritis of left sacroiliac joint Take 1 capsule (200 mg total) by mouth in the morning. 30 capsule 2 025 Active pantoprazole (PROTONIX) 40 mg EC tabletIndications: Gastro-esophageal reflux disease without esophagitis Take 1 tablet (40 mg total) by mouth every morning before breakfast. 90 tablet 025 Active oxygen Inhale 2 L/min continuously. Active metoprolol succinate XL (TOPROL XL) 25 mg 24 hr tabletIndications: Chronic heart failure with preserved ejection fraction ([facility]),Pulmonar y hypertension ([facility]),Nonrheum atic tricuspid valve regurgitation,Esse ntial hypertension,Ather osclerosis of [place] coronary artery of [place] heart without angina pectoris,History of four vessel coronary artery bypass graft,NSTEMI (non-ST elevated myocardial infarction) ([facility]) Take 1 tablet (25 mg total) by mouth nightly. 30 tablet 11 025 Active guaiFENesin (MUCINEX) 600 mg tablet extended release 12hr Take 1 tablet (600 mg total) by mouth every 12 (twelve) hours. 14 tablet 025 Active hydrOXYzine (ATARAX) 25 mg tablet Take 1 tablet (25 mg total) by mouth 2 (two) times a day as needed for anxiety. 025 Active pregabalin (LYRICA) 100 mg capsuleIndications :Peripheral polyneuropathy Take 1 capsule (100 mg total) by mouth before bedtime. Active torsemide (DEMADEX) 10 mg tablet Take 3 tablets (30 mg total) by mouth daily. 025 Active hydrOXYzine (ATARAX) 25 mg tablet Take 1 tablet (25 mg total) by mouth. 025 2024 Discontinued pregabalin (LYRICA) 100 mg capsuleIndications :Peripheral polyneuropathy TAKE 1 CAPSULE BY MOUTH IN THE MORNING AND 1 CAPSULE BEFORE BEDTIME 60 capsule 025 2024 Discontinued furosemide (LASIX) 40 mg tabletIndications: Venous insufficiency of both lower extremities Take 1 tablet (40 mg total) by mouth daily. 30 tablet 2 025 2024 Discontinued pregabalin (LYRICA) 100 mg capsuleIndications :Peripheral polyneuropathy TAKE 1 CAPSULE BY MOUTH IN THE MORNING AND BEFORE BEDTIME 60 capsule 025 2024 Discontinued torsemide (DEMADEX) 20 mg tabletIndications: Chronic heart failure with preserved ejection fraction ([facility]),Pulmonar y hypertension ([facility]),Nonrheum atic tricuspid valve regurgitation,Esse ntial hypertension,Ather osclerosis of [place] coronary artery of [place] heart without angina pectoris,History of four vessel coronary artery bypass graft,NSTEMI (non-ST elevated myocardial infarction) ([facility]) Take 3 tablets (60 mg total) by mouth daily. Take 3 tablets daily. May take take an additional tablet as needed for swelling 300 tablet 3 025 2024 Discontinued(S top Taking at Discharge) predniSONE (DELTASONE) 20 mg tablet Take 2 tablets (40 mg total) by mouth in the morning for 5 days. 10 tablet 025 2024 torsemide (DEMADEX) 10 mg tablet Take 1 tablet (10 mg total) by mouth 3 (three) times a day. 2024 Discontinued Active Problems Problem Noted Date Diagnosed Date Microcytic anemia 12/17/2024 Acute on chronic respiratory failure with hypoxia and hypercapnia 12/04/2024 History of four vessel coronary artery bypass gr aft 11/28/2024 Pulmonary hypertension 11/28/2024 Nonrheumatic tricuspid valve regurgitation 11/28 Arthritis of left sacroiliac joint 07/07/2024 Chronic [...] 10/16 Hyperglycemia 08/14/2020 Low back pain 08/14/2020 Atherosclerosis of [place] co ronary artery of [place] heart without angina pectoris 07/30/2020 Obesity (BMI 30-39.9) 01/30/2020 NSTEMI (non-ST elevated myocardial infarction) 0 01/09/2020 Resolved Problems Problem Noted Date Diagnosed Date Resolved Date Acute hypoxic on chronic hyp ercapnic respiratory failure 12/03/2024 12/04/2024 Acute pulmonary embolism wit hout acute cor [...] Encounters Date Type Department Care Team Description 12/19/2024 2:40 PM EDT Support Visit [facility] - Pre Admit [address] [place] [address] 12/15/2024 12:30 PM EDT Office Visit [facility] Internal Medicine - Family Medicine [address] [place] [address] Michael Steiner DO Microcytic anemia (Primary Dx); Gastro-esophageal reflux disease without esophagitis; Stage 3a chronic kidney disease (CMS-HCC); Spinal stenosis of lumbar region with neurogenic claudication 12/15/2024 Results Follow-Up [facility] Internal Medicine - Family Medicine [address] [place] [address] Michael Steiner, DO Basic Metabolic Panel 12/15/2024 Telephone [facility] Internal Medicine - Family Medicine [address] [place] [address] Sofya Coe CMA 12/14/2024 Travel 12/12/2024 Results Follow-Up [facility] - Heart Failure Clinic [address] [place] [address] Kacey Sims RN Basic Metabolic Panel 12/12/2024 Travel 12/08/2024 Telephone [facility] Internal Medicine - [facility] Medicine [address] [place] [address] Liz Norman RN Transition Of Care 12/04/2024 6:44 AM EDT - 12/06/2024 11:45 AM EDT Hospital Encounter [facility] [address] [place] [address] Patrick Bal DO Yuhas, John L, Acute on chronic respiratory failure with hypoxia and hypercapnia (CMS-HCC) (Primary Dx); Pneumonia due to infectious organism, unspecified laterality, unspecified part of lung; Peripheral polyneuropathy; Pulmonary hypertension ([facility]); Chronic respiratory failure with hypoxia and hypercapnia (CMS-HCC); Stage 3a chronic kidney disease (CMS-HCC) Discharge Disposition: Home Health 12/04/2024 Travel 12/03/2024 2:49 AM EDT - 12/03/2024 8:05 AM EDT Hospital Encounter [facility] [address] [place] [address] Cristhian Garrido MD Yuhas, John L, Acute hypoxic on chronic hypercapnic respiratory failure (CMS-HCC) (Primary Dx); KUSUM (acute kidney injury); Pneumonia of right lung due to infectious organism, unspecified part of lung Discharge Disposition: Left Against Medical Advice or Discontinued Care 12/03/2024 Travel 11/30/2024 Results Follow-Up [facility] [address] [facility] [place] [address] Kacey Sims RN Basic Metabolic Panel 11/29/2024 Results Follow-Up [facility] Internal Medicine - Family Medicine [address] [place] [address] Michael Steiner, DO X-ray knee right 3 views 11/29/2024 Travel 11/28/2024 3:17 PM EDT - 11/28/2024 11:59 PM EDT Hospital Encounter [facility] - Radiology [address] [facility] [place] [address] Michael Steiner, DO Patellar tendinitis of right knee Discharge Disposition: Home 11/28/2024 2:00 PM EDT Office Visit [facility] - Heart Failure Clinic [address] [place] [address] Inez Cook, HR LEADER-AC/DC REWINDER Chronic heart failure with preserved ejection fraction ([facility]) (Primary Dx); Pulmonary hypertension ([facility]); Nonrheumatic tricuspid valve regurgitation; Essential hypertension; Atherosclerosis of [place] coronary artery of [place] heart without angina pectoris; History of four vessel coronary artery bypass graft; NSTEMI (non-ST elevated myocardial infarction) ([facility]) 11/27/2024 Travel 11/25/2024 Travel 11/23/2024 Refill [facility] Internal Medicine - Family Medicine [address] [place] [address] Michael Steiner, DO Peripheral polyneuropathy 11/21/2024 Telephone [facility] Internal Medicine - Family Medicine [address] [place] [address] Juan Diego Esquivel CMA 11/10/2024 Telephone [facility] Internal Medicine - Family Medicine [address] [place] [address] Megan Talley, [facility] 11/07/2024 2:30 PM EDT Office Visit [facility] Internal Medicine - Family Medicine [address] [place] [place] [address] Michael Steiner, Hiatal hernia with GERD (Primary Dx); Stage 3a chronic kidney disease ([facility]); Patellar tendinitis of right knee; Gastro-esophageal reflux disease without esophagitis; Venous insufficiency of both lower extremities 11/07/2024 Travel 11/02/2024 8:12 AM EDT - 11/02/2024 11:59 PM EDT Hospital Encounter [facility] - Radiology [address] [place] [address] Nausea and vomiting, unspecified vomiting type Discharge Disposition: Home 11/02/2024 Results Follow-Up [facility] Internal Medicine - Family Medicine [address] [place] [address] Michael Steiner DO Fluoroscopy upper GI with esophagus 11/01/2024 Telephone [facility] - Family Medicine [address] [place] [address] Juan Diego Esquivel, [facility] 10/31/2024 Travel 10/27/2024 4:15 PM EDT Office Visit [facility] Internal Medicine - Family Medicine [address] [place] [address] Michael Steiner, Type 2 diabetes mellitus with stage 3a chronic kidney disease, without long-term current use of insulin ([facility]) (Primary Dx); Venous insufficiency of both lower extremities; Chronic heart failure with preserved ejection fraction ([facility]); Stage 3a chronic kidney disease ([facility]); Nausea and vomiting, unspecified vomiting type; Arthritis of left sacroiliac joint 10/27/2024 Travel 10/24/2024 Orders Only [facility] Internal [facility] - Family Medicine [address] [place] [address] Michael Steiner DO Venous insufficiency of both lower extremities (Primary Dx) 10/24/2024 Telephone [facility] - Family Medicine [address] [place] [address] Megan Talley CMA 10/13/2024 Refill [facility] - Family Medicine [address] [place] [address] Michael Steiner, DO Peripheral polyneuropathy 10/11/2024 Travel 10/07/2024 11:30 AM EDT Office Visit [facility] Medicine - Family Medicine [address] [place] [address] Michael Steiner, Cervicogenic headache (Primary Dx); Orthostatic hypotension; Chronic heart failure with preserved ejection fraction (CMS-HCC); Fibromyalgia syndrome 10/06/2024 Travel from Last 3 Months Immunizations No [...] e alcohol) last use 15 years ago [employer] Answer Date Recorded In the past 12 months has [employer], oil, or water [employer] threatened to shut off services in your [...] do you attend [facility] or mosque services? More than 4 times [...] Answer Date Recorded Total Score 0 12/15/2024 [facility] [...] 12:37 PM EDT Respiratory Rate 20 12/15/2024 12:37 PM EDT Oxygen Saturation 95% 12/15/2024 12:37 PM EDT Inhaled Oxygen Concentration - - Weight 112.5 kg (248 lb) 12/19/2024 1:11 PM EDT Height 175.3 cm (5' 9 ) 12/19/2024 1:11 PM EDT Body Mass Index 36.62 12/19/2024 1:11 PM EDT Plan of Treatment Upcoming Encounters Date Type Department Care Team (Latest Contact Info) Description 2:40 PM EDT Support Visit [facility] - Pre Admit [address] [place] [address] :00 AM EDT Hospital Encounter [facility] - Endoscopy [address] [facility] [place] [address] Michael Steiner, DO [address] [place] [address] Microcytic anemia (Primary Dx) 5 10:00 AM EDT - 5 11:00 AM EDT Surgery [facility] - Endoscopy [address] [facility] [place] [address] Michael Steiner, DO [address] [place] [address] ESOPHAGOGASTRODUODENOSCOPY DIAGNOSTIC [65251 (CPT )] 5 7:30 AM EDT Appointment [facility] - Cardiovascular [address] [place] [phone] Inez Cook, HR LEADER-AC/DC REWINDER [address] [place] [address] 5 3:30 PM EDT Office Visit [facility] - Heart Failure Clinic [address] [place] [address] Risa Summers MD [address] [place] [address] 5 1:30 PM EDT Office Visit [facility] Internal Medicine - Family Medicine [address] [place] [address] Michael Steiner, DO [address] [place] [address] Scheduled Procedures Name Priority Associated Diagnoses Date/Ti me ESOPHAGOGASTRODUODENOSCOPY DIAGNOSTIC microcytic anemia 12/20/2024 10:00 AM EDT ESOPHAGOGASTRODUODENOSCOPY DIAGNOSTIC Microcytic anemia Health Maintenance Due Date Last Done Comments Diabetic Ophthalmology Exam 1962 Adult BMI Follow Up Plan 1980 Diabetic Foot Exam 1980 DTaP,Tdap and Td Vaccines (1 - Tdap) 1981 Pap Smear 02/18/2025 02/18/2022, 02/18/2022 Zoster (Shingles) Vaccine (1 of 2) 03/07/2025 Postponed from 2012 (Patient Refused) Statin Use: Cardiovascular 04/26/2025 04/26/2024 Statin Use: Diabetic 04/26/2025 04/26/2024 Adult BMI Screening 12/15/2025 12/19/2024 Depression Screening 12/15/2025 12/15/2024 Tobacco Screening 12/15/2025 12/19/2024 Influenza Vaccine Discontinued Goals Goal Patient Goal Type Associated Problems Recent Progress Patient-Stated? Author home General Yes Jimena Snider LSW Note: Evaluation of progress towards goal: feeling better Autogenerated Goal Care Plan Autogenerated Problem No [employer] Implanted Type Area Truck Jumper Device Identifier Shelf Expiration Date Model / Serial / Lot Sj Xience Jocelin 2.75x28 Rx - [id number] Implanted:Qty : 1 on 01/09/2020 by Yefri Khan MD at [facility] Stent N/A: Arterial [employer] [id number] 07/20/2020 [id number] / / [id number] Sj Xience Jocelin 2.75x8 Rx - [id number] Implanted:Qty : 1 on 01/09/2020 by Yefri Khan MD at [facility] Stent N/A: Arterial [employer]ULAR [id number] 10/24/2022 [id number] / / [id number] Procedures Procedure Name Priority Date/Time Associated Diagnosis Comments BASIC METABOLIC PANEL Routine 12/15/2024 1:10 PM EDT Stage 3a chronic kidney disease ([facility]) ADMIT TO INPATIENT Routine 12/14/2024 12 :55 PM EDT BASIC METABOLIC PANEL Routine 12/12/2024 8:32 AM EDT Chronic heart failure with preserved ejection fraction ([facility]) Essential hypertension Pulmonary hypertension ([facility]) Nonrheumatic tricuspid valve regurgitation Atherosclerosis of [place] coronary artery of [place] heart without angina pectoris History of four vessel coronary artery bypass graft BLOOD GAS, VENOUS Routine 12/06/2024 8:4 8 AM EDT EXTRA TUBES PST TOP Routine 12/06/2024 5 :58 AM EDT EXTRA TUBES LAVENDER TOP Routine 12/06/2024 5:58 AM EDT EXTRA TUBES BLUE TOP Routine [...] EXTRA TUBES Routine 12/05/2024 4:28 AM EDT PHOSPHORUS Routine 12/05/2024 4:28 AM EDT CBC WITH AUTO DIFFERENTIAL Routine 12/05/2024 4:28 AM EDT BASIC METABOLIC [...] EXTRA TUBES Routine 12/04/2024 7:15 AM EDT PROCALCITONIN Add-On 12/04/2024 7:14 AM EDT PHOSPHORUS Add-On 12/04/2024 7:14 AM EDT TROPONIN I, HIGH SENSITIVITY 0 HOUR STAT 12/04/2024 7:14 AM EDT CBC WITH AUTO DIFFERENTIAL STAT 12/04/2024 7:14 AM EDT B-TYPE NATRIURETIC PEPTIDE STAT 12/04/2024 7:14 AM EDT LACTATE W/ REFLEX STAT 12/04/2024 7:1 4 AM EDT TROPONIN I, HIGH SENSITIVITY 0 HOUR STAT 12/04/2024 7:14 AM EDT COMPREHENSIVE METABOLIC PANEL STAT 12/04/2024 7:14 AM EDT XR CHEST 1 VW STAT 12/04/2024 7:11 AM EDT BIPAP/CPAP/AUTOPAP Routine 12/04/2024 6: 52 AM EDT ECG 12-LEAD STAT 12/04/2024 6:48 AM EDT PULSE OXIMETRY, SPOT Routine 12/03/2024 6:37 AM EDT TROP I, HIGH SENSITIVITY 1 HOUR STAT 12/03/2024 4:[address] CTA CHEST STAT 12/03/2024 4:02 AM EDT VENTILATION Routine 12/03/2024 3:55 AM EDT BLOOD CULTURE STAT 12/03/2024 3:47 AM EDT XR CHEST 1 VW STAT 12/03/2024 3:19 AM EDT BLOOD GAS, VENOUS STAT 12/03/2024 3:1 6 AM EDT EXTRA TUBES SST TOP Routine 12/03/2024 3 :09 AM EDT EXTRA TUBES BLUE TOP Routine 12/03/2024 3:09 AM EDT EXTRA TUBES Routine 12/03/2024 3:09 AM EDT LACTATE W/ REFLEX STAT 12/03/2024 3:0 9 AM EDT B-TYPE NATRIURETIC PEPTIDE STAT 12/03/2024 3:09 AM EDT CBC WITH AUTO DIFFERENTIAL STAT 12/03/2024 3:09 AM EDT BLOOD CULTURE STAT 12/03/2024 3:09 AM EDT TROPONIN I, HIGH SENSITIVITY 0 HOUR STAT 12/03/2024 3:08 AM EDT TROPONIN I, HIGH SENSITIVITY 0 HOUR STAT 12/03/2024 3:08 AM EDT COMPREHENSIVE METABOLIC PANEL STAT 12/03/2024 3:08 AM EDT ECG 12-LEAD STAT 12/03/2024 2:51 AM EDT BASIC METABOLIC PANEL Routine 11/29/2024 1:01 PM EDT Chronic heart failure with preserved ejection fraction ([facility]) Pulmonary hypertension ([facility]) Nonrheumatic tricuspid valve regurgitation Essential hypertension Atherosclerosis of [place] coronary artery of [place] heart without angina pectoris History of four vessel coronary artery bypass graft NSTEMI (non-ST elevated myocardial infarction) ([facility]) XR KNEE RT 3 VWS Routine 11/28/2024 3:37 PM EDT Patellar tendinitis of right knee FL UGI WITH ESOPHAGUS Routine 11/02/2024 8:34 AM EDT Nausea and vomiting, unspecified vomiting type CBC WITH AUTO DIFFERENTIAL Routine 10/27/2024 4:57 PM EDT Stage 3a chronic kidney disease ([facility]) COMPREHENSIVE METABOLIC PANEL Routine 10/27/2024 4:57 PM EDT Type 2 diabetes mellitus with stage 3a chronic kidney disease, without long-term current use of insulin ([facility]) HEMOGLOBIN A1C Routine 10/27/2024 4:57 PM EDT Type 2 diabetes mellitus with stage 3a chronic kidney disease, without long-term current use of insulin ([facility]) PAP SMEAR Routine 02/18/2022 10:08 AM EDT Encounter for screening for malignant neoplasm of cervix Encounter for screening for human papillomavirus (HPV) from Last 3 Months or Most Recently Relevant to Health Maintenance Results * (ABNORMAL) Basic Metabolic Panel (12/15/2024 1:10 PM EDT) Only the most recent of5 resultswithin the time period is included. SODIUM 142 134 - 146 mmol/L 12/15/2024 6:37 PM EDT [facility] POTASSIUM 4.5 3.5 - 5.0 mmol/L 12/15/2024 6:37 PM EDT [facility] CHLORIDE 101 98 - 109 mmol/L 12/15/2024 6:37 PM EDT [facility] CARBON DIOXIDE 33(H) 22 - 32 mmol/L 12/15/2024 6:37 PM EDT [facility] ANION GAP 8 5 - 15 mmol/L 12/15/2024 6:37 PM EDT [facility] BLOOD UREA NITROGEN 21 5 - 27 mg/dL 12/15/2024 6:37 PM EDT [facility] CREATININE 1.32(H) 0.40 - 1.00 mg/dL 12/15/2024 6:37 PM EDT [facility] Comment:METHOD TRACEABLE TO IDMS STANDARD GLUCOSE 106(H) 65 - 99 mg/dL 12/15/2024 6:37 PM EDT [facility] CALCIUM 9.0 8.5 - 10.5 mg/dL 12/15/2024 6:37 PM EDT [facility] EGFR Non-Race Dependent 46(L) >=60 ml/min/1.7 3sq.m 12/15/2024 6:37 PM EDT [facility] Comment: Reported eGFR is based on the CKD-EPI 2020 equation that does not use a race coefficient. Blood Venous blood / Unknown 12/15/2024 1:10 PM EDT 12/15/2024 1:10 PM EDT Michael Steiner DO LAB BLOOD ORDERABLES Final Resul t [facility] [address] [place] [address], [place] [phone] * Admit to Adult inpatient (12/14/2024 12:55 PM EDT) Cristhian Garrido MD ADT ORDERABLES Final Resul t * (ABNORMAL) Blood gas, venous (12/06/2024 8:48 AM EDT) Only the most recent of5 resultswithin the time period is included. Sample type VENOUS 12/06/2024 8:50 AM EDT [facility] pH, Venous 7.378 7.320 - 7.420 12/06/2024 8:50 AM EDT [facility] pCO2, Venous 63.6(H) 35.0 - 50.0 mmHg 12/06/2024 8:50 AM EDT [facility] pO2, Venous 47 30 - 50 mmHg 12/06/2024 8:50 AM EDT [facility] Base, Excess 10.0(H) 0.0 - 2.0 mmol/L 12/06/2024 8:50 AM EDT [facility] HCO3, Venous 37.4(H) 20.0 - 24.0 mmol/L 12/06/2024 8:50 AM EDT [facility] %O2 Saturation, Venous 80.0 % 12/06/2024 8:50 AM EDT [facility] Joe's test N/A 12/06/2024 8:50 AM EDT [facility] Sample site N/A 12/06/2024 8:50 AM EDT [facility] Source Of Oxygen NC 12/06/2024 8:50 AM EDT [facility] venous Venous blood / Unknown 12/06/2024 8:48 AM EDT 12/06/2024 8:50 AM EDT Michael Steiner DO LAB BLOOD ORDERABLES Final Resul t [address] [place] [address], [place] * Lavender Top (12/06/2024 5:58 AM EDT) Extra Tube Auto Resulted 12/06/2024 7:01 AM EDT [facility] Blood Venous blood / Unknown 12/06/2024 5:58 AM EDT 12/06/2024 6:09 AM EDT us Michael Francohas DO LAB BLOOD ORDERABLES Final Resul t Performing Organization Address [facility] de Phone Number [address] [place] [address], [place] * PST TOP (12/06/2024 5:58 AM EDT) Extra Tube Auto Resulted 12/06/2024 7:01 AM EDT [facility] Blood Venous blood / Unknown 12/06/2024 5:58 AM EDT 12/06/2024 6:22 AM EDT us Michael Perrys DO LAB BLOOD ORDERABLES Final Resul t Performing Organization Address [facility] Co de Phone Number [address] [place] [address], [place] * Light Blue Top (12/06/2024 5:58 AM EDT) Only the most recent of4 resultswithin the time period is included. Extra Tube Auto Resulted 12/06/2024 7:01 AM EDT [facility] Blood Venous blood / Unknown 12/06/2024 5:58 AM EDT 12/06/2024 6:09 AM EDT us Michael Francohas DO LAB BLOOD ORDERABLES Final Resul t Performing Organization Address City/[facility] Co de Phone Number [place] [phone] [place] [address], [place] * Phosphorus (12/06/2024 5:58 AM EDT) Only the most recent of3 resultswithin the time period is included. Pathologist [facility] PHOSPHORUS 3.1 2.4 - 4.9 mg/dL 12/06/2024 7:25 AM EDT [facility] Blood Venous blood / Unknown Venipuncture / Unknown 12/06/2024 5:58 AM EDT 12/06/2024 6:06 AM EDT us Michael Steiner DO LAB BLOOD ORDERABLES Final Resul t [address] [place] [address], [place] * Lower resp/sputum culture inc gram stain: Patient acquired (12/05/2024 10:28 PM EDT) [facility] CULTURE RESULTS CULTURE CANCELLED. SPECIMEN DOES NOT MEET CRITERIA FOR CULTURING. PLEASE REORDER AND RESUBMIT. 12/07/2024 2:36 PM EDT [facility] GRAM STAIN >25 Squamous Epithelial Cells/LPF with Mixed Bacterial Types Seen. Regarded as Saliva not Sputum 12/07/2024 2:36 PM EDT [facility] Sputum Bronchial structure / Unknown 12/05/2024 10:28 PM EDT 12/05/2024 10:33 PM EDT Michael Steiner DO MICROBIOLOGY - GENERAL ORDERABLE S Final Result [facility] [address] [place] [address], [place] [phone] * (ABNORMAL) Bedside Glucose *Place/Obtain serum glucose if >500 per glucometer. (12/05/2024 6:04 PM EDT) Only the most recent of6 resultswithin the time period is included. Pathologist [facility] Bedside Glucose (POC) 147(H) 65 - 99 mg/dL 12/05/2024 6:18 PM EDT [facility] arterial/capilla ry 12/05/2024 6:04 PM EDT 12/05/2024 6:18 PM EDT us Michael Steiner DO POINT OF CARE TEST ORDERABLES Fi nal Result [facility] [address] [place] [address], [place] * (ABNORMAL) CBC auto differential (12/05/2024 4:28 AM EDT) Only the most recent of4 resultswithin the time period is included. WBC 9.1 4 - 11 x10E9/L 12/05/2024 5:59 AM EDT [facility] RBC Count 4.24 3.8 - 5.2 X10E12/L 12/05/2024 5:59 AM EDT [facility] Hemoglobin 8.2(L) 11.7 - 15.5 g/dL 12/05/2024 5:59 AM EDT [facility] Hematocrit 27.7(L) 35 - 47 % 12/05/2024 5:59 AM EDT [facility] MCV 65(L) 80 - 100 fL 12/05/2024 5:59 AM EDT [facility] MCH 19.4(L) 27 - 34 pg 12/05/2024 5:59 AM EDT [facility] MCHC 29.7(L) 32 - 36 g/dL 12/05/2024 5:59 AM EDT [facility] RDW 19.6(H) 11.5 - 15 % 12/05/2024 5:59 AM EDT [facility] Platelet Count 238 150 - 450 X10E9/L 12/05/2024 5:59 AM EDT [facility] MPV 7.3 7 - 12 fL 12/05/2024 5:59 AM EDT [facility] Neutrophils % 92.2 % 12/05/2024 5:59 AM EDT [facility] Comment:This is an appended report. These results have been appended to a previously preliminary verified report. Lymphocytes % 5.3 % 12/05/2024 5:59 AM EDT [facility] Comment:This is an appended report. These results have been appended to a previously preliminary verified report. Monocytes % 2.3 % 12/05/2024 5:59 AM EDT [facility] Comment:This is an appended report. These results have been appended to a previously preliminary verified report. Eosinophils % 0.0 % 12/05/2024 5:59 AM T [facility] Comment:This is an appended report. These results have been appended to a previously preliminary verified report. Basophils % 0.2 % 12/05/2024 5:59 AM T [facility] Comment:This is an appended report. These results have been appended to a previously preliminary verified report. Neutrophils Absolute (A) 8.3(H) 1.5 - 6.6 10*3/uL 12/05/2024 5:59 AM [facility] Comment:This is an appended report. These results have been appended to a previously preliminary verified report. Lymphocytes Absolute 0.5(L) 1.0 - 3.5 10*3/uL 12/05/2024 5:59 AM EDT [facility] Comment:This is an appended report. These results have been appended to a previously preliminary verified report. Monocytes Absolute 0.2 0.0 - 0.9 10*3/uL 12/05/2024 5:59 AM EDT [facility] Comment:This is an appended report. These results have been appended to a previously preliminary verified report. Eosinophils Absolute 0.0 0.0 - 0.4 10*3/uL 12/05/2024 5:59 AM T [facility] Comment:This is an appended report. These results have been appended to a previously preliminary verified report. Basophils Absolute 0.0 0.0 - 0.2 10*3/uL 12/05/2024 5:59 AM EDT [facility] Comment:This is an appended report. These results have been appended to a previously preliminary verified report. Anisocytosis 2+ 12/05/2024 5:59 AM EDT [facility] Comment:This is an appended report. These results have been appended to a previously preliminary verified report. Microcytes 2+ 12/05/2024 5:59 AM EDT [facility] Comment:This is an appended report. These results have been appended to a previously preliminary verified report. Stomatocytes 3+ 12/05/2024 5:59 AM EDT [facility] Comment:This is an appended report. These results have been appended to a previously preliminary verified report. RBC Morphology abnormal 12/05/2024 5:59 AM EDT [facility] Comment:This is an appended report. These results have been appended to a previously preliminary verified report. Differential Type AUTOMATED DIFFERENTIAL 12/05/2024 5:59 AM EDT [facility] Comment:This is an appended report. These results have been appended to a previously preliminary verified report. Blood Venous blood / Unknown Venipuncture / Unknown 12/05/2024 4:28 AM EDT 12/05/2024 4:51 AM EDT Michael Stenier DO LAB BLOOD ORDERABLES Final Resul t [facility] [address] [place] [address], * (ABNORMAL) Troponin I, High Sensitivity 1 Hour (12/04/2024 8:23 AM EDT) Only the most recent of2 resultswithin the time period is included. TROPONIN I, HIGH SENSITIVITY 17(H) <16 ng/L 12/04/2024 9:07 AM EDT [facility] Blood Venous blood / Unknown Venipuncture / Unknown 12/04/2024 8:23 AM EDT 12/04/2024 8:35 AM EDT Narrative [facility] - 12/04/2024 9:07 AM EDT Elevations of hs-Troponin may be due to causes other than myocardial ischemia. Recommend serial hs-Troponin testing be performed. For the initial evaluation and management of chest pain patients, refer to the algorithms linked below. Emergency Patient: [email or web address] [email or web address]: [email or web address] us Patrick Bal DO LAB BLOOD ORDERABLES Final R esult [facility] [address] [place] [address], * Critical Care (12/04/2024 8:15 AM EDT) Narrative Patrick Bal DO - 12/04/2024 8:15 AM EDT Patrick Bal DO 12/05/2024 3:17 AM Critical Care Performed by: Patrick Bal DO [...] and obtaining history from patient or surrogate us Patrick Bal DO PROCEDURE/MINOR SURGICAL ORD ERABLES Final Result * (ABNORMAL) Troponin I, High Sensitivity 0 Hour (12/04/2024 7:14 AM EDT) Only the most recent of2 resultswithin the time period is included. TROPONIN I, HIGH SENSITIVITY 17(H) <16 ng/L 12/04/2024 7:50 AM EDT [facility] Blood Venous blood / Unknown Venipuncture / Unknown 12/04/2024 7:14 AM EDT 12/04/2024 7:18 AM EDT us Patrick Bal DO LAB BLOOD ORDERABLES Final R esult [address] [place] [address], [place] * (ABNORMAL) Procalcitonin (12/04/2024 7:14 AM EDT) PROCALCITONIN 0.13(H) <0.05 ng/mL 12/04/2024 1:09 PM EDT [facility] Blood Venous blood / Unknown Venipuncture / Unknown 12/04/2024 7:14 AM EDT 12/04/2024 7:18 AM EDT Narrative [facility] - 12/04/2024 1:09 PM EDT <0.50 ng/mL - Low risk of severe sepsis and/or septic shock. <2.00 ng/mL - Recommend retesting within 6-24 hours. >2.00 ng/mL - High risk of sepsis and/or septic shock. Michael Steiner DO LAB BLOOD ORDERABLES Final Resul t [address] [place] [address], [place] * Lactate w/ Reflex (12/04/2024 7:14 AM EDT) Only the most recent of2 resultswithin the time period is included. LACTATE W/REFLEX 1.0 0.4 - 2.0 mmol/L 12/04/2024 7:37 AM EDT [facility] Blood Venous blood / Unknown Venipuncture / Unknown 12/04/2024 7:14 AM EDT 12/04/2024 7:17 AM EDT Narrative [facility] - 12/04/2024 7:37 AM EDT Result did not trigger repeat Lactate, re-order if needed. us Patrick Bal DO LAB BLOOD ORDERABLES Final R esult Performing Organization Address City/[facility] Co de Phone Number [address] [place] [address], [place] * (ABNORMAL) B-type natriuretic peptide (12/04/2024 7:14 AM EDT) Only the most recent of2 resultswithin the time period is included. BNP 259(H) <=100 pg/mL 12/04/2024 7:46 AM EDT [facility] Blood Venous blood / Unknown Venipuncture / Unknown 12/04/2024 7:14 AM EDT 12/04/2024 7:18 AM EDT us Patrick Bal DO LAB BLOOD ORDERABLES Final [facility] Performing Organization Address [facility] de Phone Number [address] [place] [address], [place] * (ABNORMAL) Comprehensive metabolic panel (12/04/2024 7:14 AM EDT) Only the most recent of3 resultswithin the time period is included. SODIUM 141 134 - 146 mmol/L 12/04/2024 7:39 AM EDT [facility] POTASSIUM 4.2 3.5 - 5.0 mmol/L 12/04/2024 7:39 AM EDT [facility] CHLORIDE 96(L) 98 - 109 mmol/L 12/04/2024 7:39 AM EDT [facility] CARBON DIOXIDE 36(H) 22 - 32 mmol/L 12/04/2024 7:39 AM EDT [facility] ANION GAP 9 5 - 15 mmol/L 12/04/2024 7:39 AM T [facility] BLOOD UREA NITROGEN 21 5 - 27 mg/dL 12/04/2024 7:39 AM T [facility] CREATININE 1.45(H) 0.40 - 1.00 mg/dL 12/04/2024 7:39 AM T [facility] Comment:METHOD TRACEABLE TO IDAR STANDARD GLUCOSE 133(H) 65 - 99 mg/dL 12/04/2024 7:39 AM T [facility] CALCIUM 9.0 8.5 - 10.5 mg/dL 12/04/2024 7:39 AM [facility] TOTAL PROTEIN 7.8 6.0 - 8.0 g/dL 12/04/2024 7:39 AM T [facility] ALBUMIN 3.7 3.2 - 5.3 g/dL 12/04/2024 7:39 AM T [facility] ALKALINE PHOSPHATASE 138(H) 39 - 130 U/L 12/04/2024 7:39 AM T [facility] AST 38 <=41 U/L 12/04/2024 7:39 AM [facility] ALT 36(H) <=31 U/L 12/04/2024 7:39 AM [facility] BILIRUBIN,TOTAL 0.3 0.3 - 1.2 mg/dL 12/04/2024 7:39 AM T [facility] EGFR Non-Race Dependent 41(L) >=60 ml/min/1.7 3sq.m 12/04/2024 7:39 AM [facility] Comment: eGFR not reported due to non-numeric value for Creatinine. Reported eGFR is based on the CKD-EPI 2020 equation that does not use a race coefficient. Blood Venous blood / Unknown Venipuncture / Unknown 12/04/2024 7:14 AM EDT 12/04/2024 7:18 AM EDT us Patirck Bal DO LAB BLOOD ORDERABLES Final R esult [facility] [address] [place] [address], [place] * X-ray chest 1 view (12/04/2024 7:11 AM EDT) Only the most recent of2 resultswithin the time period is included. Anatomical Region Laterality Modality Body, Chest N/A [...] ECG 12 lead (12/04/2024 6:48 AM EDT) Only the most recent of2 resultswithin the time period is included. 12/04/2024 6:48 AM EDT Narrative [facility] - 12/05/2024 3:17 AM EDT us Patrick E Valeriano DO ECG ORDERABLES Final Result [facility] * CT angiogram chest (12/03/2024 4:02 AM EDT) Anatomical Region Laterality Modality Lung, Body, Chest, Vascular, Body Covera N/A Computed Tomography 12/03/2024 4:12 AM EDT Narrative 12/03/2024 4:15 AM EDT Clinical history: Hypoxia Technique: CT angiography of the pulmonary arteries was performed following the intravenous administration of contrast material. Multidetector CT angiogram performed through the pulmonary arteries without complication, including source images and maximum intensity projection 3-D images displayed and reviewed on a PACS workstation by the radiologist. Automated exposure control was utilized. Comparison: 09/10/2023 Findings: There is suboptimal opacification of the pulmonary arteries. No definite evidence of pulmonary embolism is seen in the main pulmonary arteries, however the peripheral branches cannot be fully evaluated. Diffuse right-sided infiltrates are seen. The left lung is clear for an active process. No hilar or mediastinal mass or adenopathy are seen. Extensive coronary artery calcifications. There is a hiatal hernia. Limited images of the upper abdomen are unremarkable. Impression: * No evidence of pulmonary embolism in the main pulmonary arteries. The secondary to shear branches are insufficiently opacified for full evaluation * Diffuse right-sided infiltrate * Hiatal hernia All CT scans at this facility use dose modulation, iterative reconstruction, and/or weight based dosing when appropriate to reduce radiation dose to as low as reasonably achievable . Finalized by Kai Finn MD on 12/03/2024 4:15 AM Procedure Note Kai Finn MD - 12/03/2024 Clinical history: Hypoxia Technique: CT angiography of the pulmonary arteries was performedfollowing the intravenous administration of contrast material.Multidetector CT angiogram performed through the pulmonary arterieswithout complication, including source images and maximum intensityprojection 3-D images displayed and reviewed on a PACS workstation by the radiologist. Automated exposurecontrol was utilized. Comparison: 09/10/2023 Findings: There is suboptimal opacification of the pulmonary arteries. Nodefinite evidence of pulmonary embolism is seen in the main pulmonaryarteries, however the peripheral branches cannot be fully evaluated. Diffuse right-sided infiltrates are seen. The left lung is clear for anactive process. No hilar or mediastinal mass or adenopathy are seen.Extensive coronary artery calcifications. There is a hiatal hernia. Limited images of the upper abdomen are unremarkable. Impression: * No evidence of pulmonary embolism in the main pulmonary arteries. Thesecondary to shear branches are insufficiently opacified for fullevaluation * Diffuse right-sided infiltrate * Hiatal hernia All CT scans at this facility use dose modulation, iterativereconstruction, and/or weight based dosing when appropriate to reduceradiation dose to as low as reasonably achievable . Finalized by Kai Finn MD on 12/03/2024 4:15 AM us Cristhian Garrido MD IMG CT ORDERABLES Final Res ult * Blood culture (12/03/2024 3:47 AM EDT) Only the most recent of2 resultswithin the time period is included. CULTURE RESULTS NO GROWTH 5 DAYS 12/08/2024 10:01 AM EDT [facility] Blood Venous blood / Unknown Venipuncture / Unknown 12/03/2024 3:47 AM EDT 12/03/2024 3:49 AM EDT us Cristhian Garrido MD MICROBIOLOGY - GENERAL [facility] Final Result [facility] [address] [place] [address], [place] [phone] * SST TOP (12/03/2024 3:09 AM EDT) Extra Tube Auto Resulted 12/03/2024 5:01 AM EDT [facility] Blood Venous blood / Unknown 12/03/2024 3:09 AM EDT 12/03/2024 3:12 AM EDT us Cristhian Garrido MD LAB BLOOD ORDERABLES Final Result [facility] [address] [place] [address], [place] * X-ray knee right 3 views (11/28/2024 3:37 PM EDT) Anatomical Region Laterality Modality Lower Extremities, MSK, Knee Right Com puted Radiography 11/29/2024 2:27 PM EDT Narrative 11/29/2024 2:28 PM EDT History: Patellar tendinitis Exam/Technique: Frontal lateral and oblique views of the right knee were obtained. Comparison: 03/04/2017 Findings: There is no evidence for an acute osseous abnormality. Mild medial joint space narrowing. No other significant degenerative changes are seen. No joint effusions are identified. IMPRESSION: Mild medial joint space narrowing. Otherwise normal right knee. Finalized by Kai Finn MD on 11/29/2024 2:28 PM Procedure Note Kai Finn MD - 11/29/2024 History: Patellar tendinitis Exam/Technique: Frontal lateral and oblique views of the right knee wereobtained. Comparison: 03/04/2017 Findings: There is no evidence for an acute osseous abnormality. Mildmedial joint space narrowing. No other significant degenerative changesare seen. No joint effusions are identified. IMPRESSION: Mild medial joint space narrowing. Otherwise normal rightknee. Finalized by Kai Finn MD on 11/29/2024 2:28 PM Michael Steiner DO [facility] ORDERABLE S Final Result * Fluoroscopy upper GI with esophagus (11/02/2024 [...] on 11/02/2024 10:14 AM Michael Steiner DO [facility] FLUOROSCOPY ORDERABLES Final Result * (ABNORMAL) Hemoglobin A1c (10/27/2024 4:57 PM EDT) HEMOGLOBIN A1C 6.3(H) 4.4 - 5.6 % 10/28/2024 5:42 AM EDT [facility] Comment: ADA Guidelines Result HgbA1c Normal : less than 5.7 % Prediabetes : 5.7 % to 6.4 % Diabetes : > 6.4 % Use with caution in patients with abnormal hemoglobin variants as the half-life of red blood cells and in vivo glycation rates are affected. EST. AVERAGE GLUCOSE 134 mg/dL 10/28/2024 5:42 AM EDT [facility] Blood Venous blood / Unknown 10/27/2024 4:57 PM EDT 10/27/2024 4:57 PM EDT Michael Steiner LAB BLOOD ORDERABLES Final Resul t [facility] [address] [place] [address], * Pap Smear (02/18/2022 10:08 AM EDT) 02/18/2022 10:0 8 AM EDT 02/18/2022 10:09 AM EDT Narrative [facility] - 02/28/2022 1:19 PM EDT [facility] [address] [place] [address] Gynecologic Cytology Consultation Patient Name:MONET YORK:1960 (Age: 61)Gender:FTaken:02/18/2022eported:02/28/2022hysician(s):Ashtyn Hackett M.D. ([phone])Copy To: Rec. #:[id number]: #[id number] Final Cytologic Interpretation ThinPrep Pap Test (Not otherwise specified): Satisfactory for evaluation. NEGATIVE FOR INTRAEPITHELIAL LESION OR MALIGNANCY. jallison/02/28/2022 Interpretation performed at [facility], [address] [place] [address], License number: [id number]. Electronically Signed Out By RAZIA Ambrosio(ASCP) Date of Last Menstrual Period: (None Given) Other Clinical Conditions: Z12.4 Screening for malignant neoplasm of cervix Z11.51 Screening for HPV Source of Specimen ThinPrep Pap Test (Not otherwise specified) Thin Prep Pap (CHIROPRACTOR SOLE PRACTITIONER) Fee Code(s): G0145 us Abestuardo Hackett MD PATHOLOGY/CYTOLOGY ORDERABLES Fi nal Result COPATH from Last 3 Months or Most Recently Relevant to Health Maintenance Additional Health Concerns Active Problems Noted Date Diagnosed Date Autogenerated Problem 12/15/2024 Insurance [place]ICAID [place] [employer] MEDICARE Advance Directives Documents on File Type Date Recorded Patient Scalemaker Expl anation DNR Physician Order 12/03/2024 3:17 AM DNR Comfort Care 12/03/24 Durable Power of Neckties Painter 05/15/2023 8:14 AM Living Will 12/19/2021 11:54 AM [place] & DPOA Living Will 11/22/2021 1:59 PM Durable Power of Neckties Painter 11/22/2021 1:58 PM * DNR Comfort Care Arrest (DNR-CCA) [place] (Latest Code Status on File) Date Activated Date Inactivated Comments 12/04/2024 9:11 AM 12/04/2024 12:20 PM * DNRCCA DNI Date Activated Date Inactivated Comments 12/03/2024 3:16 AM 12/03/2024 10:34 AM * Full Code Date Activated Date Inactivated Comments 08/28/2023 4:38 AM 08/29/2023 11:50 AM * Full Code Date Activated Date Inactivated Comments 08/28/2023 4:09 AM 08/28/2023 4:38 AM * Full Code Date Activated Date Inactivated Comments 07/25/2023 9:03 PM 07/27/2023 4:44 PM Care Teams Smoking Tobacco Packing Machine Hand Relationship Specialty Start Date End Date Michael Steiner DO [address] [place] [address] PCP - General Internal Medicine 12/17/23
--- NOTE | 2024-12-19 14:33 | PM.CN ---
Consult Note: HPI Data of Consult Patient: known to practice within the last 3 years Consult date: 12/19/24 Requesting Physician: Ligia Root MD Primary Care Provider: RAJNI CARDOZO Consult Narrative Reason for consult: left shoulder pain, low back pain Narrative: 64yof who presents for assessment. notes 90% relief from recent sij injection and states she is feeling very well from this. continues to have left shoulder pain, would like to proceed with previously discussed injection. continues in a series of provider directed home exercises >6 weeks, without benefit. uses lyrica. denies adverse med side effects. cc:: CC: Ligia Root MD Review of Systems ROS Status of ROS 10 or more systems reviewed and unremarkable except as noted in history and below PFSH PFS Medical History Rheumatoid arthritis ?M06.9 - Rheumatoid arthritis, unspecified (ICD-10) Anemia ?D64.9 - Anemia, unspecified (ICD-10) Panic disorder ?F41.0 - Panic disorder [episodic paroxysmal anxiety] (ICD-10) PTSD (post-traumatic stress disorder) ?F43.10 - Post-traumatic stress disorder, unspecified (ICD-10) Bipolar 1 disorder ?F31.9 - Bipolar disorder, unspecified (ICD-10) Anxiety ?F41.9 - Anxiety disorder, unspecified (ICD-10) Acid reflux ?K21.9 - Gastro-esophageal reflux disease without esophagitis (ICD-10) BONY treated with BiPAP ?G47.33 - Obstructive sleep apnea (adult) (pediatric) (ICD-10) Sleep apnea ?G47.30 - Sleep apnea, unspecified (ICD-10) COPD (chronic obstructive pulmonary disease) ?J44.9 - Chronic obstructive pulmonary disease, unspecified (ICD-10) CHF (congestive heart failure) ?I50.9 - Heart failure, unspecified (ICD-10) Angina at rest ?I20.89 - Other forms of angina pectoris (ICD-10) Heart attack ?I21.9 - Acute myocardial infarction, unspecified (ICD-10) Surgical History Stented coronary artery ?Z95.5 - Presence of coronary angioplasty implant and graft (ICD-10) Hx of cholecystectomy ?Z90.49 - Acquired absence of other specified parts of digestive tract (ICD-10) H/O section ?Z98.891 - History of uterine scar from previous surgery (ICD-10) Hx of CABG ?Z95.1 - Presence of aortocoronary bypass graft (ICD-10) Meds Home Medications and Allergies Home Medications ?Medication ?Instructions ?Recorded ?Confirmed ?Type clonazepam 0.5 mg tablet 1 mg PO DAILY 02/23/24 11/14/24 History doxepin 100 mg capsule 75 mg PO DAILY 02/23/24 11/14/24 History empagliflozin 10 mg tablet 10 mg PO DAILY 02/23/24 11/14/24 History (Jardiance) pregabalin 50 mg capsule (Lyrica) 50 mg PO DAILY 02/23/24 11/14/24 History topiramate 100 mg tablet (Topamax) 100 mg PO BID 02/23/24 11/14/24 History torsemide 40 mg tablet 160 mg PO DAILY 02/23/24 11/14/24 History albuterol sulfate 90 mcg/actuation 1 puff inhalation Q4H PRN 02/24/24 11/14/24 History aerosol inhaler shortness of breath or wheezing aripiprazole 15 mg tablet 15 mg PO BEDTIME 02/24/24 11/14/24 History budesonide 160 mcg-glycopyr 9 2 inh inhalation BID 02/24/24 11/14/24 History mcg-formot 4.8 mcg/actuation HFA inhaler (Breztri Aerosphere) calcitonin (salmon) 200 1 spray intranasal (ALT) DAILY 02/24/24 11/14/24 History unit/actuation nasal spray furosemide 40 mg tablet (Lasix) 40 mg PO .MWF 02/24/24 11/14/24 History lamotrigine 150 mg tablet 150 mg PO DAILY 02/24/24 11/14/24 History pantoprazole 40 mg tablet,delayed 40 mg PO DAILY 02/24/24 11/14/24 History release potassium chloride 20 mEq 20 meq PO DAILY 02/24/24 11/14/24 History tablet,extended release spironolactone 25 mg tablet 25 mg PO DAILY 02/24/24 11/14/24 History hydroxyzine HCl 25 mg tablet mg 07/21/25 History Allergies Allergy/AdvReac Type Severity Reaction Status Date / Time Penicillins Allergy Unknown Unknown Verified 11/14/24 10:38 Exam Narrative Exam Narrative: Psych-alert and oriented x 3.? Attentive and appropriate, constitutionally normal, displays normal mood and affect per situation.? There are no obvious deficits in memory, reasoning, or intellect.? Skin-no obvious rashes, bruising, or erythema noted to the patient's area of pain. Extremities-upper extremities are warm with minimal edema and palpable pulses. Shoulder - tender to palpation in left shoulder. Pain with abduction, external rotation of left shoulder. Coordination remains intact.? Gait remains non-antalgic. Assessment and Plan Assessment and Plan (1) Lumbar spondylosis: (2) Sacroiliitis: (3) Osteoarthritis of left shoulder: Qualifiers: Osteoarthritis type: primary Qualified Code(s): M19.012 - Primary osteoarthritis, left shoulder Plan 64yof who presents for assessment. had significant benefit with sij injection. discussed that at some point, this pain may return, and we could reassess at that point in time. she expressed understanding. in terms of left shoulder, will proceed with left shoulder injection. meds reviewed, no changes. follow up in 6 weeks or sooner, if needed. procedure: left shoulder injection medications: bupivacaine 0.25% 4cc, depomedrol 40mg I explained the details of the procedure to the patient including the risks, benefits, and alternatives.? We had an informed discussion.? The patient verbalized understanding and signed the consent form.? All questions were answered appropriately.? A time-out was performed.? After obtaining a comfortable seated position, the skin overlying the left shoulder was prepped with alcohol 3 times.? The sulcus between the head of the humerus and the acromion was identified.? The needle was inserted in a sterile manner 2 cm inferior and medial to the posterolateral corner of the acromion and was directed anteriorly toward the coracoid process. The contents of the syringe were gently injected without any resistance into the joint space after negative aspiration for blood or other bodily fluids.? The needle was removed and pressure was applied at the injection site to decrease the incidence of ecchymosis and hematoma formation.? A sterile bandage was applied.
--- OUTSIDE RECORDS SUMMARY | 2024-12-19 14:40 | XMS_ITS | Encounter Summary ---
Author Organization [facility] tem Address [id number] [address] [place] [address] Care Team Providers Care Baker Bread Name Role Phone Michael Steiner DO Primary Care Provider [phone] Encounter Details Date Type Department Care Team (Late st Contact Info) Description 12/19/2024 2:40 PM EDT Support Visit [facility] - Pre Admit [address] [place] [address] Social History Tobacco Use Types Packs/Day Years [...] Recorded In the past 12 months has [employer], gas, oil, or water Prevently threatened to shut off services in your [...] How often do you attend [facility] or jehovah's witness services? More than 4 [...] Answer Date Recorded Total Score 0 12/15/2024 [facility] - [...] Sign Reading Time Taken Comments Blood Pressure - - Pulse - - Temperature - - Respiratory Rate - - Oxygen Saturation - - Inhaled Oxygen Concentration - - Weight 112.5 kg (248 lb) 12/19/2024 1:11 PM EDT Height 175.3 cm (5' 9 ) 12/19/2024 1:11 PM EDT Body Mass Index 36.62 12/19/2024 1:11 PM EDT documented in this encounter Miscellaneous Notes * Perioperative Nursing Note - Patricia Huertas RN - 12/19/2024 2:40 PM EDT Preoperative Education Checklist- General Surgery date: 12/20/24 Surgery time: 1000 Arrival time: 0900 1. Bring a photo ID and your insurance card with you the day of surgery. You will check in at the main lobby of the [facility]- registration desk is straight ahead as soon as you walk in. Tell them you are here for surgery. 2. If you have a Living Will/Durable Power of Neonatal Surgeon for Health Care that is not on file here, please bring a copy the day of surgery. 3. Please shower/bathe the night before surgery with the provided soap or wipes. Do not shower the morning of surgery- you will do use wipes when you arrive here at the hospital before getting into your surgical gown. Do not shave the area of your procedure for 2 days prior to your surgery. 4. NO powder, lotion, perfume/cologne, aftershave, make-up, deodorant, or hair products after you have bathed. 5. NO nail albanian/acrylic on at least one finger. If you are having a hand, wrist or foot surgery then all nail albanian and artificial/acrylic nails must be removed from that hand or foot. 6. Avoid ALL Aspirin and non-steroidal anti-inflammatory drugs and certain vitamins (Ibuprofen, Advil, Aleve, Excedrin, Meloxicam, Celebrex, fish/krill oil, etc.) for 7 days prior to surgery as instructed by your surgeon and/or your prescribing doctor. Tylenol IS ALLOWED. If you are on Ticlid, Xarelto, Eliquis, Pradaxa, Plavix or Coumadin, please check with your prescribing doctor for instructions for when to stop them. 7. If you use an inhaler, continue to use it routinely. 8. Nothing to eat or drink (not even water, gum, mints, or hard candy!) AFTER midnight prior to your surgery. 9. Take only medications that you are instructed to on the morning of surgery with a TINY SIP OF WATER. 10. Choose a responsible adult that will be able to drive you home when you are discharged from your hospital stay for your surgery and can stay with you in your home for 24 hours after your procedure. You must NOT drive any vehicle or operate any machinery for 24 hours after surgery. 11. When you dress for your appointment, please wear loose fitting clothing that is appropriate to accommodate your surgical area procedure. BRING WITH YOU ANY DEVICES YOU MAY NEED: PUJA hose, ice machine, sling/swath, brace or special shoe, oversized zip-up or button up shirt, CPAP machine if staying overnight. 12. Do NOT wear jewelry, watches, or any piercings or metal for surgery- leave these valuables and money at home. 13. Do NOT wear contact lenses for surgery- glasses are okay if needed. 14. The anesthesiologist will talk with you the day of surgery and will ask you to sign a Consent Form. 15. Refrain from smoking or any type of tobacco use for at least 8 hours and marijuana for 24 hoursprior to arrival for your surgery. 16. Notify your surgeon if you develop any illness before your surgery. 17. If you are staying overnight, please DO NOT BRING your home medications with you. 18. If you have any questions prior to surgery, please call the Preadmission Testing office at [phone], Mon.-Fri. 7 a.m.-3 p.m. Leave a voicemail if needed. Pre-Surgery Instructions: Medication Instructions acetaminophen (TYLENOL) 325 mg tablet Stop taking 0 days prior to procedure albuterol (ACCUNEB) 0.63 mg/3 mL nebulizer solution Take morning of procedure, as needed albuterol (PROVENTIL HFA;VENTOLIN HFA) 90 mcg/actuation inhaler Take morning of procedure, as needed ARIPiprazole (ABILIFY) 15 mg tablet Stop taking 0 days prior to procedure atorvastatin (LIPITOR) 80 mg tablet Stop taking 0 days prior to procedure fujmneekki-gaftyjyx-fkfhqiwhuh (BREZTRI AEROSPHERE) 160-9-4.8 mcg/actuation HFA aerosol inhaler Continue as prescribed, take morning of procedure celecoxib (CeleBREX) 200 mg capsule Per Surgeon's instructions cholecalciferol, vitamin D3, 5,000 units tablet Stop taking 0 days prior to procedure clonazePAM (KlonoPIN) 0.5 mg tablet Stop taking 0 days prior to procedure cyanocobalamin 1000 MCG tablet Stop taking 0 days prior to procedure doxepin (SINEquan) 75 mg capsule Stop taking 0 days prior to procedure empagliflozin (JARDIANCE) 10 mg tablet tablet Per Surgeon's instructions ezetimibe (ZETIA) 10 mg tablet Stop taking 0 days prior to procedure guaiFENesin (MUCINEX) 600 mg tablet extended release 12hr Stop taking 0 days prior to procedure hydrOXYzine (ATARAX) 25 mg tablet Stop taking 0 days prior to procedure lamoTRIgine (LaMICtal) 150 mg tablet Stop taking 0 days prior to procedure metoprolol succinate XL (TOPROL XL) 25 mg 24 hr tablet Continue as prescribed, take morning of procedure oxygen Stop taking 0 days prior to procedure pantoprazole (PROTONIX) 40 mg EC tablet Stop taking 0 days prior to procedure pregabalin (LYRICA) 100 mg capsule Stop taking 0 days prior to procedure spironolactone (ALDACTONE) 25 mg tablet Stop taking 0 days prior to procedure torsemide (DEMADEX) 10 mg tablet Stop taking 0 days prior to procedure TRINTELLIX 10 mg tablet Stop taking 0 days prior to procedure documented in this encounter Plan of Treatment Upcoming Encounters Date Type Department Care Team (Latest Contact Info) Description 5 10:00 AM EDT Hospital Encounter [facility] - Endoscopy [address] [place] [address] Michael Steiner, DO [address] [place] [address] Microcytic anemia (Primary Dx) 5 10:00 AM EDT - 5 11:00 AM EDT Surgery [facility] - Endoscopy [address] [place] [address] Michael Steiner, DO [address] [place] [address] ESOPHAGOGASTRODUODENOSCOPY DIAGNOSTIC [97281 (CPT )] 5 7:30 AM EDT Appointment [facility] [address] [place] [address] Inez Cook, [employer] 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 [address] [place] [id number] 5 3:30 PM EDT Office Visit [facility] Failure [facility] [address] [place] [id number] Risa Summers MD [address] [place] [address] 5 1:30 PM EDT Office Visit [facility] - Family Medicine [address] [place] [address] Michael Steiner DO [address] [address] Scheduled Procedures Name Priority Associated Diagnoses Date/Ti [...] documented as of this encounter Care Teams Baker Bread Relationship Specialty Start Date End Date Michael Steiner DO [address] [place] [address] PCP - General Internal Medicine 12/17/23 documented as of this encounter
== END 2024-12-19 13:35 | disposition home or self-care (01) ==
PROVIDERS: PCP Internal Medicine; Visit Provider Anesthesiology
DX: M47.816 Spondylosis without myelopathy or radiculopathy, lumbar region (principal); M46.1 Sacroiliitis, not elsewhere classified; M19.012 Primary osteoarthritis, left shoulder
CPT/HCPCS: 20610; J0665; J1010

== ENCOUNTER 2025-02-02 09:47 | Outpatient (OUT) | payer MEDICARE, MEDICAID, SELFPAY ==
--- NOTE | 2025-02-02 10:09 | PM.CN ---
Consult Note: HPI Data of Consult Patient: known to practice within the last 3 years Consult date: 02/22/24 Requesting Physician: Harper Alvarez NP Primary Care Provider: RAJNI CARDOZO Consult Narrative Reason for consult: low back and BLE pain Narrative: 64yof who presents for evaluation. worsening bilateral low back pain for past 3 months. became worse after a fall. imaging shows multilevel spinal degeneration, stenosis, and sij degeneration. has engaged in a series of provider directed home exercises >6 weeks, without benefit. uses celebrex 100mg bid and tylenol. denies adverse med side effects. pt interested in restarting gabapentin, pcp previously discontinued for unknown reason. pt notes 7/10 sharp burning aching pain to low back BLE and bialteral feet. pain increasing to 10/10 with standing, walking, pushing, pulling, activity, stairs, bending, lifting, transitioning. denies fall/injury. cc:: CC: Harper Alvarez NP [facility] Medical History Rheumatoid arthritis ?M06.9 - Rheumatoid arthritis, unspecified (ICD-10) Anemia ?D64.9 - Anemia, unspecified (ICD-10) Panic disorder ?F41.0 - Panic disorder [episodic paroxysmal anxiety] (ICD-10) PTSD (post-traumatic stress disorder) ?F43.10 - Post-traumatic stress disorder, unspecified (ICD-10) Bipolar 1 disorder ?F31.9 - Bipolar disorder, unspecified (ICD-10) Anxiety ?F41.9 - Anxiety disorder, unspecified (ICD-10) Acid reflux ?K21.9 - Gastro-esophageal reflux disease without esophagitis (ICD-10) BONY treated with BiPAP ?G47.33 - Obstructive sleep apnea (adult) (pediatric) (ICD-10) Sleep apnea ?G47.30 - Sleep apnea, unspecified (ICD-10) COPD (chronic obstructive pulmonary disease) ?J44.9 - Chronic obstructive pulmonary disease, unspecified (ICD-10) CHF (congestive heart failure) ?I50.9 - Heart failure, unspecified (ICD-10) Angina at rest ?I20.89 - Other forms of angina pectoris (ICD-10) Heart attack ?I21.9 - Acute myocardial infarction, unspecified (ICD-10) Surgical History Stented coronary artery ?Z95.5 - Presence of coronary angioplasty implant and graft (ICD-10) Hx of cholecystectomy ?Z90.49 - Acquired absence of other specified parts of digestive tract (ICD-10) H/O section ?Z98.891 - History of uterine scar from previous surgery (ICD-10) Hx of CABG ?Z95.1 - Presence of aortocoronary bypass graft (ICD-10) Meds Home Medications and Allergies Home Medications ?Medication ?Instructions ?Recorded ?Confirmed ?Type clonazepam 0.5 mg tablet 1 mg PO DAILY 02/23/24 11/14/24 History doxepin 100 mg capsule 75 mg PO DAILY 02/23/24 11/14/24 History empagliflozin 10 mg tablet 10 mg PO DAILY 02/23/24 11/14/24 History (Jardiance) pregabalin 50 mg capsule (Lyrica) 50 mg PO DAILY 02/23/24 11/14/24 History topiramate 100 mg tablet (Topamax) 100 mg PO BID 02/23/24 11/14/24 History torsemide 40 mg tablet 160 mg PO DAILY 02/23/24 11/14/24 History albuterol sulfate 90 mcg/actuation 1 puff inhalation Q4H PRN 02/24/24 11/14/24 History aerosol inhaler shortness of breath or wheezing aripiprazole 15 mg tablet 15 mg PO BEDTIME 02/24/24 11/14/24 History budesonide 160 mcg-glycopyr 9 2 inh inhalation BID 02/24/24 11/14/24 History mcg-formot 4.8 mcg/actuation HFA inhaler (Breztri Aerosphere) calcitonin (salmon) 200 1 spray intranasal (ALT) DAILY 02/24/24 11/14/24 History unit/actuation nasal spray furosemide 40 mg tablet (Lasix) 40 mg PO .MWF 02/24/24 11/14/24 History lamotrigine 150 mg tablet 150 mg PO DAILY 02/24/24 11/14/24 History pantoprazole 40 mg tablet,delayed 40 mg PO DAILY 02/24/24 11/14/24 History release potassium chloride 20 mEq 20 meq PO DAILY 10/30/24 07/21/25 History tablet,extended release spironolactone 25 mg tablet 25 mg PO DAILY 02/24/24 11/14/24 History hydroxyzine HCl 25 mg tablet mg 11/14/24 History Allergies Allergy/AdvReac Type Severity Reaction Status Date / Time Penicillins Allergy Unknown Unknown Verified 11/14/24 10:38 Exam Constitutional Documenting provider has reviewed patient's vital signs: yes Common normals: no apparent distress, oriented x3, healthy appearing, alert and well nourished General appearance: cooperative HENMT Common normals: normocephalic, hearing grossly normal bilaterally and moist oral mucous membranes Head and scalp: normocephalic Eye Common normals: PERRL Pupil: PERRL Neck & C-Spine Common normals: full ROM General: normal visual inspection Chest Common normals: inspection of chest normal Respiratory Common normals: normal respiratory effort, no retractions and no use of accessory muscles Back & Pelvis Lumbar spine/lower back: ROM limited, pain with ROM, straight leg raise positive right and straight leg raise positive left Other: decreased sensation bilateral L5/S1 strength 4/5 in BLE Neuro Common normals: oriented x3 Sensorium/orientation: alert Psych Common normals: mental status grossly normal, thought process normal, cooperative, affect normal, speech normal and activity/motor behavior normal Speech: normal speech Thought process: normal thought process Results Additional Findings Additional findings: If on a controlled substance or opioids, I have checked an [place] report on this patient and there are no aberrancies noted in the prescribing history.??If on a controlled substance or opioid a drug screen was completed and reviewed within the last year, and if there has not been a drug screen completed we ordered one today to monitor higher risk, state monitored pain medication use. As part of providing excellent, safe, comprehensive care, the following was completed at our patient's visit: 1. A medication reconciliation and review to ensure accurate knowledge of current/active medications, including asking our patients to inform us about any [id number] medications or herbal remedies/nutritional supplements/alternative remedies. 2. A review to specifically ensure our patients have had annual screening for screening for depression, screening for tobacco use, and screening for unhealthy alcohol use. For concerning screenings had a discussion with the patient, provided patient education, and recommended follow-up with primary care provider when appropriate. If patient noted with a risk of falling, they received education on strength, gait, and balance training to prevent future risk of falling. Portions of this note may have been carried over from the previous visit and updated as appropriate. Please note this office utilizes paper charting in addition to the electronic medical record. A list of current medications, vitals, and PMH is available there as the clinical staff outside of myself do not have access to [employer] charting during the clinic day operations. As part of providing quality comprehensive care the current medications, vitals, and PMH were reviewed in the paper chart. Assessment and Plan Assessment and Plan (1) Lumbar stenosis with neurogenic claudication: (2) Sacroiliitis: (3) Lumbar spondylosis: Plan The patient has had over 3 months of moderate to severe low back and BLE pain with functional impairment and inadequate response to conservative care including NSAIDS (unless there are contraindication such as concurrent blood thinners), multiple oral or topical pain medications, and home exercise program/physical therapy.? Patient has completed >6 weeks of guided home exercise program and/or formal physical therapy program without relief of their symptoms.? The Oswestry Disability Index was completed, and the patient scored a 49%.? bilateral L5-S1 TFESI under fluoroscopy for lumbar stenosis with NC will reach out to PCP for labs and inquire why gabapentin was stopped as pt is interested in restarting f/u 2 weeks after AUTUMN
--- OUTSIDE RECORDS SUMMARY | 2025-02-02 10:09 | XMS_ITS | CCD ---
Author Organization [facility]iniSymt Care Team Providers Care Cut Filer Name Role Phone Hercher, Nadege L Unavailable Unavailable Hercher, Nadege L Unavailable Unavailable Provider, None Unavailable Unavailable JEFFERSON Fowler Primary Care Provider MD John Carson Attending Provider John Carson Unavailable Kg Huerta Admitting Unavailab Myriam Cordero Primary Care Unavailable Kg Huerta Attending Unavailab Myriam Cordero Primary Care Unavailable John Carson Attending Unavailable John Carson Admitting Unavailable WILBER FRASER Attending Unavailable WILBER FRASER Referring Unavailable NO PCP, NO PCP Primary Care Unavailable WILBER FRASER Attending Unavailable WILBER FRASER Referring Unavailable NO PCP, NO PCP Primary Care Unavailable CEE NELSON Attending Unavailable CEE NELSON Referring Unavailable NO PCP, NO PCP Primary Care Unavailable CEE NELSON Attending Unavailable CEE NELSON Referring Unavailable NO PCP, NO PCP Primary Care Unavailable CEE NELSON Attending Unavailable CEE NELSON Referring Unavailable NO PCP, NO PCP Primary Care Unavailable CEE NELSON Attending Unavailable CEE NELSON Referring Unavailable NO PCP, NO PCP Primary Care Unavailable PILO DOMÍNGUEZ Referring Unavailable NO PCP, NO PCP Primary Care Unavailable CEE NELSON Attending Unavailable CEE NELSON Referring Unavailable NO PCP, NO PCP Primary Care Unavailable CEE NELSON Attending Unavailable CEE NELSON Referring Unavailable NO PCP, NO PCP Primary Care Unavailable CEE NELSON Attending Unavailable CEE NELSON Referring Unavailable NO PCP, NO PCP Primary Care Unavailable TARIQ CRAVEN Attending Unavailable TARIQ CRAVEN Referring Unavailable NO PCP, NO PCP Primary Care Unavailable REMI DURANA Referring Unavailable NO PCP, NO PCP Primary Care Unavailable ROGER, ADRIAN Referring Unavailable NO PCP, NO PCP Primary Care Unavailable ROGER, ADRIAN Referring Unavailable NO PCP, NO PCP Primary Care Unavailable LIDIA LEÓN Admitting Unavaila LIDIA Mendez Attending Unavaila BECKY Espinal Referring Unavailable NO PCP, NO PCP Primary Care Unavailable CEE NELSON Consulting Unavailable GENIEMARANDA Consulting Unavailable Rajni Cardozo MD Primary Care Provider Yusunshine CABRERA, Rajni Cardoso Primary Care Provider Obdulia CABRERA, Rajni Cardoso Primary Care Provider Yusunshine DO, Rajni Cardoso Primary Care Provider No Pcp, No Pcp Primary Care Provider Unavailabl e YUHAS, RAJNI L Referring Unavailable YUHAS, RAJNI L Primary Care Unavailable YUHAS, RAJNI L Referring Unavailable YUHAS, RAJNI L Primary Care Unavailable YUHAS, RAJNI L Referring Unavailable YUHAS, RAJNI L Primary Care Unavailable YUHAS, RAJNI L Referring Unavailable YUHAS, RAJNI L Primary Care Unavailable YUHAS, RAJNI L Referring Unavailable YUHAS, RAJNI L Primary Care Unavailable Rajni Cardozo DO Primary Care Provider [phone] Rajni Cardozo MD Primary Care Provider SYDNIE GUERRERO Attending Unavailable ALEKSANDAREUSEBIA VASQUEZ Attending Unavailable ALEKSANDAREUSEBIA Referring Unavailable ALEKSANDAREUSEBIA ACOSTA Attending Unavailable ALEKSANDAREUSEBIA Referring Unavailable ALEKSANDAREUSEBIA Attending Unavailable ALEKSANDAREUSEBIA Attending Unavailable ALEKSANDAREUSEBIA Referring Unavailable ALEKSANDAREUSEBIA Attending Unavailable SYDNIE GUERRERO Attending Unavailable YUHASRAJNI Attending Unavailable YUHAS, RAJNI L Referring Unavailable YUHAS, RAJNI L Primary Care Unavailable GRACE MEADOWS Attending Unavailable YUHAS, RAJNI L Referring Unavailable YUHAS, RAJNI L Primary Care Unavailable YUHAS, RANJI L Attending Unavailable YUHAS, RAJNI L Referring Unavailable YUHAS, RAJNI L Primary Care Unavailable YUHAS, RAJNI L Attending Unavailable YUHAS, RAJNI L Referring Unavailable YUHAS, RAJNI L Primary Care Unavailable YUHAS, RAJNI L Attending Unavailable YUHAS, RAJNI L Referring Unavailable YUHAS, RAJNI Cardoso Primary Care Unavailable YUHAS, RAJNI Cardoso Attending Unavailable YUHAS, RAJNI L Referring Unavailable YUHAS, RAJNI L Primary Care Unavailable YUHAS, RAJNI L Attending Unavailable YUHAS, RAJNI L Referring Unavailable YUHAS, RAJNI Janae Primary Care Unavailable YUHAS, RAJNI Cardoso Attending Unavailable YUHAS, RAJNI L Referring Unavailable YUHAS, RAJNI L Primary Care Unavailable YUHAS, RAJNI Cardoso Attending Unavailable YUHAS, RAJNI L Referring Unavailable YUHAS, RAJNI L Primary Care Unavailable Dk MIJARES, Ligia Zee Attending Unavailable Celsoitis , Ligia Zee Attending Unavailable Dk MIJARES, Ligia Zee Attending Unavailable Celsoitis , Ligia Zee Attending Unavailable Dk MIJARES, Ligia Zee Attending Unavailable MYRIAM GILES Attending Unavailable YUHAS, RAJNI Cardoso Referring Unavailable YUHAS, RAJNI Cardoso Primary Care Unavailable MYRIAM PEACOCK Attending Unavailable YUHAS, RAJNI Cardoso Referring Unavailable YUHAS, RAJNI Cardoso Primary Care Unavailable YUHAS, RAJNI Cardoso Referring Unavailable YUHAS, RAJNI Cardoso Primary Care Unavailable YUHAS, RAJNI Cardoso Referring Unavailable YUHAS, RAJNI Cardoso Primary Care Unavailable ODESSA COOK Attending Unavailable LUKASHASRAJNI Referring Unavailable YUHAS, RAJNI Cardoso Primary Care Unavailable YUHAS, RAJNI Cardoso Attending Unavailable LUKASHASRAJNI Referring Unavailable YUHAS, RAJNI Cardoso Primary Care Unavailable ODESSA COOK Referring Unavailable YUHAS, RAJNI Cardoso Primary Care Unavailable YUHAS, RAJNI Cardoso Primary Care Unavailable YUHAS, RAJNI Cardoso Admitting Unavailable YUHAS, RAJNI Cardoso Attending Unavailable YUHAS, RAJNI Cardoso Primary Care Unavailable YUHAS, RAJNI Cardoso Admitting Unavailable YUHAS, RAJNI Cardoso Attending Unavailable ODESSA COOK Referring Unavailable YUHAS, RAJNI Cardoso Primary Care Unavailable YUHAS, RAJNI Cardoso Referring Unavailable YUHAS, RAJNI Janae Primary Care Unavailable YUHAS, RAJNI Cardoso Referring Unavailable YUHAS, RAJNI Janae Primary Care Unavailable ODESSA COOK Attending Unavailable ODESSA COOK Referring Unavailable YUHAS, RAJNI Cardoso Primary Care Unavailable YUHAS, RAJNI Cardoso Referring Unavailable YUHAS, RAJNI L Primary Care Unavailable CHANEL, CYNTHIA R Referring Unavailable RAJNI CARDOZO Primary Care Unavailable RAJNI CARDOZO Referring Unavailable RANJI CARDOZO Primary Care Unavailable RAJNI CARDOZO Admitting Unavailable RAJNI CARDOZO Attending Unavailable RAJNI CARDOZO Referring Unavailable RAJNI CARDOZO Primary Care Unavailable Allergies Allergy Classification Reported Allergen(s) Allergy Type Date of Onset Reaction(s) Facility (1 source) morphine; Translations: [Morphine Sulfate] Drug Allergy [facility] (2 sources) penicillin; Translations: [penicillin] Drug Allergy Unknown [facility] (20 sources) Morphine; Translations: [morphine] Drug Allergy 7 Hallucinations, Other (See Comments) [facility] (20 sources) Penicillins; Translations: [Penicillins] Allergy to substance 4 Anaphylaxis [facility] (9 sources) fentaNYL; Translations: [FENTANYL] Drug Allergy 5 Other (See Comments) [facility] Medications Current Medications Medication Drug Class(es) Dates Sig (Normalized) Sig (Original) acetaminophen 325 mg oral tablet (20 sources) Start: 07-27-2023 take 2 tablets by mouth every four hours as needed for pain and headache acetaminophen (TYLENOL) 325 mg tablet Take 2 tablets (650 mg total) by mouth every 4 (four) hours as needed for pain or headaches. 30 tablet 07/27/2023 Active Start: 07-25-2023 End: 07-27-2023 take 1 tablet by mouth every four hours as needed for headache and pain 650 mg, oral, Every 4 hours PRN, headaches, moderate pain - pain scale 4-6, Starting on 07/25/23 at 2101 take 1 tablet by claudia th every four hours as needed for pain acetaminophen (Tylenol) 325 MG tablet Take 325 mg by mouth every 4 (four) hours if needed for mild pain Active [id number] 200 actuat albuterol 0.09 mg/actuat metered dose inhaler (20 sources) beta2-Adrenergic Agonist Start: 09-21-2024 End: 09-21-2024 take 2 puff(s) by inhalation every four hours for wheezing albuterol HFA 90 mcg/act inhaler Indications: Chronic obstructive pulmonary disease, unspecified COPD type (HCC) Inhale 2 puffs every 4 (four) hours if needed for wheezing 18 g 5 09/21/2024 Active take 0.63 mg by inha lation every six hours as needed for wheezing albuterol (ACCUNEB) 0.63 mg/3 mL nebuliz er solution Inhale 3 mL (0.63 mg total) by nebulization every 6 (six) hours as needed for wheezing. Active albuterol (PROVE NTIL HFA;VENTOLIN HFA) 90 mcg/actuation inhaler Active albuterol 0.63 M G/3ML nebulizer solution Take 0.63 mg by nebulization every 6 (six) hours if needed for wheezing Active albuterol (PROVE NTIL HFA;VENTOLIN HFA) 90 mcg/actuation inhaler INHALE 2 PUFF BY MOUTH AND INTO THE LUNGS EVERY 4-6 HOURS NEEDED FOR BREATHING ISSUES FOR 17 DAYS for 17 Active Albuterol Active ARIPiprazole 15 mg oral tablet (20 sources) Atypical Antipsychotic Start: 07-27-2023 End: 07-27-2023 ARIPiprazole (ABILIFY) tablet 15 mg Start: 05-13-2023 End: 07-27-2023 take 1 tablet by mouth at bedtime ARIPiprazole (Abilify) 15 MG tablet Take 15 mg by mouth at bedtime 01/29/2024 Active Start: 06-22-2018 take 10 mg by mouth once daily at bedtime Aripiprazole Active 10 MG PO Daily at bedtime June 22, 2018 1:00am Start: 06-08-2018 take 5 mg by mouth once daily Aripiprazole Active 5 MG PO Daily June 08, 2018 1:00am End: 03-17-2024 take 1 tablet by mouth once daily ARIPiprazole (Abilify) 15 MG disintegrating tablet Take 15 mg by mouth Daily 03/17/2024 Discontinued (Med list cleanup) End: 06-01-2023 take 2 tablets by mouth once daily ARIPiprazole (ABILIFY) 10 mg tablet Take 2 tablets (20 mg total) by mouth nightly. 0 06/01/2023 Discontinued (Duplicate Listing) take 1 tablet by claudia th every twenty-four hours Abilify 30 MG 1 tablet Orally Once a day Active atorvastatin 80 mg oral tablet (20 sources) HMG-CoA Reductase Inhibitor Start: 04-26-2024 take 1 tablet by mouth in the morning atorvastatin (LIPITOR) 80 mg tablet Indications: Atherosclerosis of [place] coronary artery of [place] heart without angina pectoris , Hx of hyperlipidemia Take 1 tablet (80 mg total) by mouth in the morning. 90 tablet 3 04/26/2024 Active Start: 04-09-2024 take 1 tablet by claudia th in the morning atorvastatin (LIPITOR) 80 mg tablet Indications: Atherosclerosis of [place] coronary artery of [place] heart without angina pectoris , Hx of hyperlipidemia TAKE 1 TABLET (80 MG TOTAL) BY MOUTH IN THE MORNING 90 tablet 3 04/09/2024 Active Start: 07-26-2023 End: 07-27-2023 take 80 mg by mouth once daily 80 mg, oral, Daily, [facility]ir st dose on 07/26/23 at 0900, Look-alike/sound-alike medication - verify indication for use. Start: 04-09-2023 End: 04-25-2024 take 1 tablet by mouth in the morning atorvastatin (LIPITOR) 80 mg tablet Indications: Atherosclerosis of [place] coronary artery of [place] heart without angina pectoris , Hx of hyperlipidemia Take 1 tablet (80 mg total) by mouth in the morning. 90 tablet 3 04/26/2024 Active benztropine mesylate 0.5 mg oral tablet (1 source) Anticholinergic, Antihistamine Start: 06-22-2018 take 0.5 mg by mouth every six hours Benztropine Active 0.5 MG PO Q6H 60 June 22, 2018 1:00am 120 actuat budesonide 0.16 mg/actuat / formoterol fumarate 0.0048 mg/actuat / glycopyrrolate 0.009 mg/actuat metered dose inhaler (20 sources) Corticosteroid, beta2-Adrenergic Agonist Start: 06-25-2023 take 2 puff(s) by inhalation in the morning budesonide-glyc opyr-formoterol (BREZTRI [employer]) 160-9-4.8 mcg/actuation HFA aerosol inhaler Indications: Chronic obstructive pulmonary disease, unspecified COPD type (CMS-HCC) Inhale 2 puffs in the morning and 2 puffs before bedtime. 10.7 g 10 06/25/2023 Active End: 09-21-2024 Srnlije-Vfjuecdtwtk-Xlqnxzhw ol (Breztri [employer]) 160-9-4.8 MCG/ACT aerosol Inhale 09/21/2024 Discontinued (Reorder) celecoxib 200 mg oral capsule (20 sources) Nonsteroidal Anti-inflammatory Drug Start: 02-22-2024 End: 01-04-2025 celecoxib (CeleBREX) 200 MG capsule 02/22/2024 Active cholecalciferol 0.125 mg oral tablet (20 sources) Vitamin D take 2 tablets by mouth in the morning cholecalciferol , vitamin D3, 5,000 units tablet Take 2 tablets (10,000 Units total) by mouth in the morning. Active take 1 capsule by mouth once hugo ly cholecalciferol (Vitamin D-3) 125 MCG (5000 UT) capsule Take 5,000 Units by mouth Daily Active clonazePAM 0.5 mg oral tablet (20 sources) Benzodiazepine Start: 09-14-2023 clonazePAM (Kl onoPIN) 0.5 mg tablet 09/14/2023 Active Start: 07-26-2023 End: 07-27-2023 clonazePAM (KlonoPIN) tablet 0.5 mg Start: 05-13-2023 End: 03-17-2024 clonazePAM (KlonoPIN) 0.25 m g disintegrating tablet Dissolve 1 tablet (0.25 mg total) on tongue 2 (two) times a day as needed. 0 05/13/2023 Active Start: 05-13-2023 End: 09-24-2023 clonazePAM (KlonoPIN) 0.25 m g disintegrating tablet Dissolve 2 tablets (0.5 mg total) on tongue 2 (two) times a day as needed. 05/13/2023 09/24/2023 Discontinued (Dose adjustment) Start: 01-07-2018 End: 01-18-2018 take 0.5 mg by mouth twice daily Clonazepam Discontinued 0.5 MG PO Twice daily January 07, 2018 12:00am January 18, 2018 11:12am take 1 tablet by claudia th every twenty-four hours KlonoPIN 0.5 MG 1 tablet Orally Once a day Active doxepin hydrochloride 75 mg oral capsule (20 sources) Tricyclic Antidepressant doxepin (SINEquan) 75 mg capsule Active End: 06-01-2023 take 3 capsules by mouth once daily doxepin (SINEquan) 25 mg capsule Take 3 capsules (75 mg total) by mouth nightly. 0 06/01/2023 Discontinued (Duplicate Listing) empagliflozin 10 mg oral tablet (20 sources) Sodium-Glucose Cotransporter 2 Inhibitor Start: 04-12-2024 End: 07-15-2024 take 1 tablet by mouth in the morning, then take 1 tablet by mouth in the morning empagliflozin (JARDIANCE) 10 mg tablet tablet Indications: Chronic heart failure with preserved ejection fraction (CMS-HCC) , Atherosclerosis of [place] coronary artery of [place] heart without angina pectoris Take 1 tablet (10 mg total) by mouth in the morning. TAKE 1 TABLET (10 MG TOTAL) BY MOUTH IN THE MORNING. 90 tablet 1 07/15/2024 Active Start: 09-01-2022 End: 10-02-2023 take 1 tablet by mouth in the morning JARDIANCE 10 mg tablet tablet Indications: Chronic heart failure with preserved ejection fraction (CMS-HCC) , Atherosclerosis of [place] coronary artery of [place] heart without angina pectoris TAKE 1 TABLET (10 MG TOTAL) BY MOUTH IN THE MORNING 90 tablet 3 10/02/2023 Active take 25 mg by mouth once daily J ARDIANCE 25 mg daily orally Active ezetimibe 10 mg oral tablet (20 sources) Dietary Cholesterol Absorption Inhibitor Start: 07-08-2024 End: 12-28-2024 take 1 tablet by mouth in the morning ezetimibe (Zetia) 10 MG tablet Take 10 mg by mouth in the morning. 07/08/2024 Active folic acid 1 mg oral tablet (1 source) Start: 06-22-2018 take 1 mg by mouth once daily Folic Acid Active 1 MG PO Daily June 22, 2018 1:00am 12 hr guaiFENesin 600 mg extended release oral tablet (5 sources) Start: 12-06-2024 take 1 tablet by mouth once guaiFENesin (MUCINEX) 600 mg tablet extended release 12hr Take 1 tablet (600 mg total) by mouth every 12 (twelve) hours. 14 tablet 12/06/2024 Active hydrOXYzine hydrochloride 25 mg oral tablet (20 sources) Antihistamine Start: 12-06-2024 take 1 tablet by mouth twice daily as needed for anxiety hydrOXYzine (ATARAX) 25 mg tablet Take 1 tablet (25 mg total) by mouth 2 (two) times a day as needed for anxiety. 12/06/2024 Active Start: 02-29-2024 take 1 tablet by claudia th once daily hydrOXYzine HCl (Atarax) 25 MG tablet Take 25 mg by mouth Daily 02/29/2024 Active Start: 06-08-2018 take 50 mg by mouth three times daily Hydroxyzine Pamoate Active 50 MG PO Three times daily June 22, 2018 1:00am ibuprofen 800 mg oral tablet (2 sources) Nonsteroidal Anti-inflammatory Drug take 1 tablet by mouth every six hours as needed for pain ibuprofen (MOTRIN) 800 mg tablet Take 1 tablet (800 mg total) by mouth every 6 (six) hours as needed for pain. 0 Active lamoTRIgine 150 mg oral tablet (20 sources) Mood Stabilizer, Anti-epileptic Agent Start: 10-07-19 24 take 1 tablet by mouth in the morning lamoTRIgine (LaMICtal) 150 mg tablet Take 1 tablet (150 mg total) by mouth in the morning. 10/07/2023 Active Start: 07-26-2023 End: 03-17-2024 take 100 mg by mouth once daily 100 mg, oral, Daily, First dose on 07/26/23 at 0900, Look-alike/sound-alike medication - verify indication for use. End: 06-01-2023 take 4 tablets by mouth in the morning lamoTRIgine (LaMICtal) 25 mg tablet Take 4 tablets (100 mg total) by mouth in the morning. 0 06/01/2023 Discontinued (Dose adjustment) [place] (1 source) [place] Active lithium carbonate 450 mg extended release oral tablet (1 source) Start: 06-22-19 19 take 900 mg by mouth once daily at bedtime [place] Carbonate Active 900 MG PO Daily at bedtime 60 June 22, 2018 1:00am methocarbamol 750 mg oral tablet (7 sources) Muscle Relaxant End: 10-28-19 25 methocarbamol (Robaxin) 750 MG tablet TAKE 1 TABLET BY MOUTH EVERY 12 HOURS FOR 30 DAYS for 30 Active 24 hr metoprolol succinate 25 mg extended release oral tablet (8 sources) beta-Adrenergic Georgi Start: 11-29-19 25 take 1 tablet by mouth once daily metoprolol succinate XL (TOPROL XL) 25 mg 24 hr tablet Indications: Chronic heart failure with preserved ejection fraction (CMS-HCC) , Pulmonary hypertension (CMS-HCC) , Nonrheumatic tricuspid valve regurgitation , Essential hypertension , Atherosclerosis of [place] coronary artery of [place] heart without angina pectoris , History of four vessel coronary artery bypass graft , NSTEMI (non-ST elevated myocardial infarction) ([facility]) Take 1 tablet (25 mg total) by mouth nightly. 30 tablet 11 11/28/2024 Active mirtazapine 45 mg oral tablet (3 sources) Start: 06-22-19 19 take 45 mg by mouth once daily at bedtime Mirtazapine Active 45 MG PO Daily at bedtime June 22, 2018 1:00am Start: 01-18-2018 End: 06-08-2018 take 45 mg by mouth at bedtime Mirtazapine Discontinue d 45 MG PO Bedtime January 18, 2018 12:00am June 08, 2018 11:26am Start: 01-07-2018 End: 01-18-2018 take 30 mg by mouth at bedtime Mirtazapine Discontinue d 30 MG PO Bedtime January 07, 2018 12:00am January 18, 2018 11:12am 24 hr nicotine 0.875 mg/hr transdermal system (2 sources) Cholinergic Nicotinic Agonist Start: 06-22-2018 Nicotine Active 1 EACH TRANSDERML Daily June 22, 2018 1:00am Start: 01-18-2018 End: 06-08-2018 Nicotine Discontinued 1 EACH TRANSDERML Daily January 18, 2018 12:00am June 08, 2018 11:26am Oxygen (8 sources) oxygen Inhale 2 L/min continuously. Active pantoprazole 40 mg delayed release oral tablet (20 sources) Proton Pump Inhibitor Start: 07-01-19 End: 11-08-19 25 take 1 tablet by mouth once daily before breakfast pantoprazole (PROTONIX) 40 mg EC tablet Indications: Gastro-esophageal reflux disease without esophagitis Take 1 tablet (40 mg total) by mouth every morning before breakfast. 90 tablet 11/07/2024 Active take 2 tablets by [facility] every twenty-four hours Pantoprazole Sodium 40 MG 2 tablets Oral ly Once a day Active pregabalin 100 mg oral capsule (20 sources) Start: 03-07-2024 End: 11-23-2024 take 1 capsule by mouth at bedtime pregabalin (LYRICA) 100 mg capsule Indications: Peripheral polyneuropathy Take 1 capsule (100 mg total) by mouth before bedtime. 12/06/2024 Active Start: 01-26-2024 End: 03-07-2024 take 1 capsule by mouth in the morning, then take 1 capsule by mouth at bedtime pregabalin (LYRICA) 50 mg capsule Indications: Peripheral polyneuropathy Take 1 capsule (50 mg total) by mouth in the morning and 1 capsule (50 mg total) before bedtime. 60 capsule 01/26/2024 03/07/2024 Discontinued (Reorder) salmon calcitonin 200 unt/actuat nasal spray (20 sources) Calcitonin Start: 09-09-2023 End: 03-29-2024 take 1 spray(s) nasal route in the morning calcitonin, salmon, (Miacalcin) 200 UNIT/ACT nasal spray Administer 1 spray into affected nostril(s) in the morning. 09/09/2023 Active spironolactone 25 mg oral tablet (20 sources) Aldosterone Antagonist Start: 04-12-2024 take 1 tablet by mouth in the morning spironolactone (ALDACTONE) 25 mg tablet Indications: Shortness of breath , Chronic heart failure with preserved ejection fraction (CMS-HCC) Take 1 tablet (25 mg total) by mouth in the morning. 90 tablet 04/12/2024 Active Start: 11-10-2022 End: 11-02-2023 take 1 tablet by mouth in the morning spironolactone (ALDACTONE) 25 mg tablet Indications: Shortness of breath , Chronic heart failure with preserved ejection fraction (CMS-HCC) TAKE 1 TABLET (25 MG TOTAL) BY MOUTH IN THE MORNING 90 tablet 3 11/02/2023 Active SUMAtriptan 50 mg oral tablet (20 sources) Serotonin-1b and Serotonin-1d Receptor Agonist Start: 06-22-2023 End: 10-07-2024 SUMAtriptan (IMITREX) 50 mg tablet TAKE 1 TABLET BY MOUTH DIRECTED 0 06/22/2023 Active Start: 10-16-2021 End: 09-24-2023 SUMAtriptan (IMITREX) 25 mg tablet Take by mouth as needed. 10/16/2021 09/24/2023 Discontinued (Duplicate Listing) SUMAtriptan (Imi trex) 25 MG tablet Take 25 mg by mouth 1 (one) time if needed for migraine May repeat dose once in 2 hours if no relief. Do not exceed 2 doses in 24 hours. Active topiramate 100 mg oral tablet (20 sources) Start: 01-04-2024 End: 10-07-2024 take 1 tablet by mouth at bedtime topiramate (Topamax) 100 MG tablet TAKE 1 TABLET (100 MG TOTAL) BY MOUTH IN THE MORNING AND AT BEDTIME FOR 90 DAYS. 03/30/2024 Active Start: 10-06-2023 End: 03-31-2024 take 1 tablet by mouth twice daily topiramate (TOPAMAX) 50 mg tablet Indications: Spinal stenosis of lumbar region with neurogenic claudication take 1 tablet by mouth twice a day for 90 days 180 tablet 01/01/2024 01/04/2024 Discontinued take 1 tablet by claudia twice daily topiramate (TOPAMAX) 50 mg tablet TAKE 1 TABLET BY MOUTH TWICE A DAY FOR 30 DAYS Active End: 06-01-2023 take 1 tablet by mouth three times daily topiramate (TOPAMAX) 25 mg tablet Take 1 tablet (25 mg total) by mouth 3 (three) times a day. 0 06/01/2023 Discontinued (Dose adjustment) torsemide 10 mg oral tablet (20 sources) Loop Diuretic Start: 12-15-2024 take 3 tablets by mouth once daily torsemide (DEMADEX) 10 mg tablet Take 3 tablets (30 mg total) by mouth daily. 12/15/2024 Active Start: 11-28-2024 take [address] [facility] once daily as needed, then take 3 tablets by mouth once daily as needed torsemide (DEMADEX) 20 mg tablet Indications: Chronic heart failure with preserved ejection fraction (CMS-HCC) , Pulmonary hypertension (CMS-HCC) , Nonrheumatic tricuspid valve regurgitation , Essential hypertension , Atherosclerosis of [place] coronary artery of [place] heart without angina pectoris , History of four vessel coronary artery bypass graft , NSTEMI (non-ST elevated myocardial infarction) ([facility]) Take 3 tablets (60 mg total) by mouth daily. Take 3 tablets daily. May take take an additional tablet as needed for swelling 300 tablet 3 11/28/2024 Active Start: 04-12-2024 End: 07-07-2024 take 4 tablets by mouth once daily in the morning torsemide (DEMADEX) 20 mg tablet Indications: Chronic heart failure with preserved ejection fraction (CMS-HCC) Take 4 tablets in the AM by mouth daily 360 tablet 04/12/2024 07/07/2024 Discontinued (Therapy completed) Start: 03-07-2024 take 4 tablets by mo uth once daily in the morning torsemide (DEMADEX) 20 mg tablet Indications: Chronic heart failure with preserved ejection fraction (CMS-HCC) Take 4 tablets in the AM by mouth daily 03/07/2024 Active Start: 11-06-2023 End: 01-21-2024 take 4 tablets by mouth in the morning, then take 4 tablets by mouth in the morning, then take 2 tablets by mouth in the evening torsemide (DEMADEX) 20 mg tablet Indications: Chronic heart failure with preserved ejection fraction (CMS-HCC) Take 4 tablets in the AM by mouth on Thu, , and Thursday. Take 4 tablet in the AM and 2 tablets in the PM on Thu, Thu and Thursday 438 tablet 3 01/21/2024 Active Start: 08-29-2023 take 2 tablets by mo uth once daily torsemide 40 mg tablet Take 80 mg by mouth daily. 08/29/2023 Active Start: 07-26-2023 End: 07-27-2023 torsemide (DEMADEX) tablet 8 0 mg Start: 05-29-2023 take 4 tablets by mo uth once daily as needed, then take 4 tablets by mouth in the morning as needed, then take 2 tablets by mouth in the evening as needed torsemide (DEMADEX) 20 mg tablet Indications: Shortness of breath , Chronic heart failure with preserved ejection fraction (CMS-HCC) Take 4 tablets (80 mg total) by mouth daily. TAKE 4 TABLETS BY MOUTH IN THE MORNING AND 2 TABS IN THE EVENING PRN 540 tablet 1 05/29/2023 Active Start: 03-05-2023 take 4 tablets by mo uth in the morning, then take 2 tablets by mouth in the evening torsemide (DEMADEX) 20 mg tablet Indications: Shortness of breath , Chronic heart failure with preserved ejection fraction (CMS-HCC) TAKE 4 TABLETS BY MOUTH IN THE MORNING AND 2 TABS IN THE EVENING 540 tablet 1 03/05/2023 Active take 1 tablet by claudia th once daily torsemide (Demadex) 20 MG tablet Take 20 mg by mouth Daily Active End: 12-15-2024 take 1 tablet by mouth three times daily torsemide (DEMADEX) 10 mg tablet Take 1 tablet (10 mg total) by mouth 3 (three) times a day. 12/15/2024 Discontinued take 2 tablets by ak ut once daily Torsemide 40 MG 2 tablets Orally Once a day Active traZODone hydrochloride 100 mg oral tablet (2 sources) Serotonin Reuptake Inhibitor Start: 06-22-2018 take 100 mg by mouth once daily at bedtime Trazodone Active 100 MG PO Daily at bedtime June 22, 2018 1:00am Start: 01-18-2018 End: 06-08-2018 take 100 mg by mouth once daily at bedtime Trazodone Discontinued 100 MG PO Daily at bedtime January 18, 2018 12:00am June 08, 2018 11:26am vitamin b12 1 mg oral tablet (20 sources) Vitamin B12 Start: 10-16-2023 take 1 tablet by mouth in the morning cyanocobalamin 1000 MCG tablet Indications: B12 deficiency TAKE 1 TABLET (1,000 MCG TOTAL) BY MOUTH IN THE MORNING 90 tablet 1 04/13/2024 Active Vitamin D 50 MCG (2000 UT) (1 source) take 1 capsule by mouth once daily Vitamin D 50 MCG (2000 UT) 1 capsule Orally Once a day Active vortioxetine 10 mg oral tablet (14 sources) Start: 10-03-2024 take 1 tablet by mouth in the morning TRINTELLIX 10 mg tablet Take 1 tablet (10 mg total) by mouth in the morning. 10/03/2024 Active Completed/Discontinued Medications Medication Drug Class(es) Dates Sig (Normalized) Sig (Original) acetaminophen 325 mg / HYDROcodone bitartrate 5 mg oral tablet (15 sources) Opioid Agonist Start: 09-09-2023 End: 11-02-2023 HYDROcodone-acetami nophen (NORCO) 5-325 mg per tablet Indications: Closed wedge compression fracture of T6 vertebra with routine healing Take 1 tablet by mouth 2 (two) times a day as needed for pain. Max Daily Amount: 2 tablets 60 tablet 10/01/2023 11/02/2023 Discontinued (Therapy completed) Start: 08-29-2023 End: 09-09-2023 HYDROcodone-acetaminophen (N ORCO) 5-325 mg per tablet Indications: Closed wedge compression fracture of T6 vertebra with routine healing Take 1 tablet by mouth 3 (three) times a day as needed for pain. Max Daily Amount: 3 tablets 15 tablet 08/29/2023 09/09/2023 Discontinued (Reorder) albuterol 0.833 mg/ml / ipratropium bromide 0.167 mg/ml inhalation solution (3 sources) Anticholinergic, beta2-Adrenergic Agonist Start: 07-25-2023 End: 07-27-2023 3 mL, nebulization, Every 6 hours, First dose on 07/25/23 at 2115, Implement INPATIENT/ED Bronchodilator Clinical Practice Guidelines? Yes, Document: \[email or web address]\[email or web address]_Reference\Orders\ Respiratory Care Guidelines\CPG Bronchodilator 2020.pdf Start: 07-25-2023 End: 07-25-2023 ipratropium-albuteroL (DUONE B) 0.5 mg-3 mg(2.5 mg base)/3 mL nebulizer solution 3 mL amitriptyline hydrochloride 100 mg oral tablet (9 sources) Tricyclic Antidepressant Start: 06-01-2023 End: 07-01-2023 take 0.5 tablet by mouth once daily amitriptyline (ELAVIL) 100 mg tablet Take 0.5 tablets (50 mg total) by mouth nightly. 0 06/01/2023 07/01/2023 Discontinued (Therapy completed) Start: 10-16-2021 End: 06-01-2023 take 1 tablet by mouth once daily amitriptyline (ELAVIL) 100 mg tablet Take 1 tablet (100 mg total) by mouth nightly. 0 10/16/2021 06/01/2023 Discontinued apixaban 5 mg oral tablet (20 sources) Factor Xa Inhibitor Start: 08-31-2023 End: 09-30-2023 take 2 tablets by mouth twice daily, then take 1 tablet by mouth twice daily ELIQUIS DVT-PE TREAT 30D START 5 mg (74 tabs) tablets,dose pack tablet TAKE 2 TABLETS (10 MG) BY MOUTH 2 TIMES A DAY FOR 7 DAYS, THEN 1 TABLET 2 TIMES A DAY FOR 21 DAYS 08/31/2023 09/30/2023 Discontinued Start: 08-31-2023 take 2 tablets by mo uth twice daily, then take 1 tablet by mouth twice daily ELIQUIS DVT-PE TREAT 30D START 5 mg (74 tabs) tablets,dose pack tablet TAKE 2 TABLETS (10 MG) BY MOUTH 2 TIMES A DAY FOR 7 DAYS, THEN 1 TABLET 2 TIMES A DAY FOR 21 DAYS 08/31/2023 Active Start: 08-29-2023 End: 03-17-2024 take 2 tablets by mouth twice daily, then take 1 tablet by mouth twice daily Eliquis DVT/PE Starter Pack 5 MG tablet therapy pack TAKE 2 TABLETS (10 MG) BY MOUTH 2 TIMES A DAY FOR 7 DAYS, THEN 1 TABLET 2 TIMES A DAY FOR 21 DAYS 08/31/2023 03/17/2024 Discontinued (Med list cleanup) Start: 08-29-2023 End: 01-12-2024 take 1 tablet by mouth in the morning, then take 1 tablet by mouth at bedtime apixaban (ELIQUIS) 5 mg tablet Indications: Acute pulmonary embolism without acute cor pulmonale, unspecified pulmonary embolism type (CMS-HCC) Take 1 tablet (5 mg total) by mouth in the morning and 1 tablet (5 mg total) before bedtime. 120 tablet 09/30/2023 01/04/2024 Discontinued (Therapy completed) aspirin 81 mg delayed release oral tablet (20 sources) Platelet Aggregation Inhibitor, Nonsteroidal Anti-inflammatory Drug Start: 07-26-2023 End: 11-02-2023 take 81 mg by mouth once daily 81 mg, oral, Daily, First dose on 07/26/23 at 0900, Do not crush or chew. brexpiprazole 4 mg oral tablet (1 source) Atypical Antipsychotic Start: 01-07-2018 End: 01-18-2018 take 1 tablet by mouth once daily in the morning Brexpiprazole (Rexulti) 4 mg tablet Discontinued 4 MG PO Every morning January 07, 2018 12:00am January 18, 2018 11:12am busPIRone hydrochloride 10 mg oral tablet (1 source) Start: 01-18-2018 End: 06-08-2018 take 20 mg by mouth three times daily Buspirone Discontinued 20 MG PO Three times daily 180 January 18, 2018 12:00am June 08, 2018 11:26am cefTRIAXone 1000 mg injection (1 source) Cephalosporin Antibacterial Start: 07-25-2023 End: 07-25-2023 cefTRIAXone (ROCEPHIN) IVPB 1000 mg/50 mL in iso-osmotic dextrose (20 mg/mL premix) clindamycin 150 mg oral capsule (12 sources) Lincosamide Antibacterial End: 11-02-2023 take 1 capsule by mouth three times daily clindamycin (CLEOCIN) 150 mg capsule Take 1 capsule (150 mg total) by mouth 3 (three) times a day. 11/02/2023 Discontinued (Therapy completed) cyclobenzaprine hydrochloride 10 mg oral tablet (20 sources) Muscle Relaxant Start: 12-24-2023 End: 07-07-2024 cyclobenzaprine (FLEXERIL) 10 mg tablet 12/24/2023 07/07/2024 Discontinued (Therapy completed) Start: 09-10-2023 End: 01-12-2024 take 1 tablet by mouth twice daily as needed for pain cyclobenzaprine (Fexmid) 7.5 MG tablet Indications: Radiculopathy, lumbosacral region TAKE 1 TABLET BY MOUTH TWICE A DAY NEEDED FOR LOWER BACK PAIN 60 tablet 1 09/10/2023 01/12/2024 Discontinued (Med list cleanup) Start: 08-10-2023 take 1 tablet by claudia th twice daily as needed for muscle spasms cyclobenzaprine (FLEXERIL) 5 mg tablet Indications: Unilateral groin pain, right Take 1 tablet (5 mg total) by mouth 2 (two) times a day as needed for muscle spasms. 20 tablet 08/10/2023 Active cyclobenzaprine (Flexeril) 10 MG tablet Take 5 mg by mouth as needed in the morning and 5 mg as needed at noon and 5 mg as needed in the evening for muscle spasms. Active take 1 tablet by claudia th twice daily as needed for muscle spasms cyclobenzaprine (FEXMID) 7.5 MG tablet Take 1 tablet (7.5 mg total) by mouth 2 (two) times a day as needed for muscle spasms. Active diclofenac sodium 0.01 mg/mg topical gel (20 sources) Nonsteroidal Anti-inflammatory Drug Start: 11-04-2023 End: 10-07-2024 diclofenac sodium (VOLTAREN) 1 % gel Indications: Fibromyalgia syndrome APPLY 2 G TOPICALLY IN THE MORNING AT AT NOON IN THE EVENING AND BEFORE BEDTIME 100 g 2 11/04/2023 10/07/2024 Discontinued (Patient Stopped On Own) Start: 07-01-2023 End: 11-04-2023 diclofenac sodium (VOLTAREN) 1 % gel Indications: Fibromyalgia syndrome Apply 2 g topically in the morning and 2 g at noon and 2 g in the evening and 2 g before bedtime. 100 g 2 07/01/2023 Active Start: 06-14-2023 End: 07-01-2023 take 1 tablet by mouth twice daily as needed diclofenac (VOLTAREN) 75 mg EC tablet TAKE 1 TABLET BY MOUTH TWICE A DAY NEEDED 0 06/14/2023 07/01/2023 Discontinued (Side effects) take 1 tablet by claudia in the morning diclofenac (VOLTAREN) 75 mg EC tablet Take 1 tablet (75 mg total) by mouth in the morning. 0 Active take 1 capsule by mo uth every eight hours Diclofenac 35 MG 1 capsule as needed Orally Three times a day Active diphenhydrAMINE hydrochloride 50 mg oral capsule (9 sources) Histamine-1 Receptor Antagonist End: 07-27-2023 take 1 capsule by mouth every six hours as needed diphenhydrAMINE (BENADRYL) 50 mg capsule Take 1 capsule (50 mg total) by mouth every 6 (six) hours as needed for itching. 0 07/27/2023 Discontinued (Stop Taking at Discharge) Benadryl Active doxycycline hyclate 100 mg oral capsule (20 sources) Tetracycline-class Drug Start: 09-24-2023 End: 10-01-2023 take 1 capsule by mouth in the morning, then take 1 capsule by mouth at bedtime doxycycline (VIBRAMYCIN) 100 mg capsule Indications: Community acquired pneumonia, unspecified laterality Take 1 capsule (100 mg total) by mouth in the morning and 1 capsule (100 mg total) before bedtime. Do all this for 7 days. 14 capsule 09/24/2023 09/30/2023 Discontinued (Therapy completed) Start: 07-24-2023 End: 08-01-2023 doxycycline (VIBRAMYCIN) 100 mg capsule 08/01/2023 Active Start: 05-18-2023 End: 05-28-2023 take 1 capsule by mouth in the morning, then take 1 capsule by mouth at bedtime doxycycline (VIBRAMYCIN) 100 mg capsule Take 1 capsule (100 mg total) by mouth in the morning and 1 capsule (100 mg total) before bedtime. Do all this for 10 days. 20 capsule 0 05/18/2023 05/28/2023 Active End: 01-12-2024 doxycycline (Vibramycin) 100 MG capsule Take 100 mg by mouth in the morning and 100 mg before bedtime. Take with at least 8 ounces (large glass) of water, do not lie down for 30 minutes after. 01/12/2024 Discontinued (Med list cleanup) 0.4 ml enoxaparin sodium 100 mg/ml prefilled syringe (1 source) Low Molecular Weight Heparin Start: 07-26-2023 End: 07-27-2023 inject 40 mg by subcutaneous injection once daily 40 mg, subcutaneous, Daily, First dose on 07/26/23 at 0600, Look-alike/sound-alike medication - verify indication for use. ferrous sulfate 325 mg oral tablet (11 sources) Start: 01-05-2023 End: 07-01-2023 ferrous sulfate 325 (65 FE) mg tablet 1 tablet (325 mg total) in the morning and 1 tablet (325 mg total) in the evening. Take with meals. 0 01/05/2023 07/01/2023 Discontinued (Side effects) ferrous sulfate 325 (65 Fe) MG tablet TAKE 1 TABLET BY MOUTH TWICE A DAY FOR 30 DAYS for 30 Active furosemide 40 mg oral tablet (5 sources) Loop Diuretic Start: 11-07-2024 End: 11-28-2024 take 1 tablet by mouth once daily furosemide (LASIX) 40 mg tablet Indications: Venous insufficiency of both lower extremities Take 1 tablet (40 mg total) by mouth daily. 30 tablet 2 11/07/2024 11/28/2024 Discontinued Start: 10-24-2024 End: 10-29-2024 take 1 tablet by mouth once daily furosemide (LASIX) 40 mg tablet Indications: Venous insufficiency of both lower extremities Take 1 tablet (40 mg total) by mouth daily for 5 days. 5 tablet 10/24/2024 10/29/2024 Active Start: 07-25-2023 End: 07-25-2023 furosemide (LASIX) injection 40 mg gabapentin 100 mg oral capsule (20 sources) Anti-epileptic Agent Start: 07-25-2023 End: 07-27-2023 take 200 mg by mouth three times daily 200 mg, oral, 3 times daily, First dose on 07/25/23 at 2200, Look-alike/sound-alike medication - verify indication for use. Start: 01-05-2023 End: 01-12-2024 take 2 capsules by mouth three times daily gabapentin (Neurontin) 100 MG capsule Indications: Polyneuropathy, unspecified TAKE 2 CAPSULES BY MOUTH 3 TIMES A DAY FOR 30 DAYS 180 capsule 2 08/17/2023 01/12/2024 Discontinued (Med list cleanup) lidocaine 0.05 mg/mg medicated patch (4 sources) Antiarrhythmic, Amide Local Anesthetic Start: 08-29-2023 End: 09-24-2023 apply 1 dose transdermal route every twelve hours in the morning lidocaine (LIDODERM) 5 % Place 1 patch on the skin in the morning. Remove & Discard patch within 12 hours or as directed by MD. 5 patch 08/29/2023 09/24/2023 Discontinued (Therapy completed) lurasidone hydrochloride 40 mg oral tablet (3 sources) Atypical Antipsychotic Start: 01-18-2018 End: 06-08-2018 take 1 tablet by mouth once daily Lurasidone (Latuda) 40 mg tablet Discontinued 60 MG PO Daily with supper June 08, 2018 11:26am June 08, 2018 12:03pm Start: 01-07-2018 End: 01-18-2018 take 1 tablet by mouth once daily Lurasidone (Latuda) 20 mg tablet Discontinued 20 MG PO Daily with supper January 07, 2018 12:00am January 18, 2018 11:12am 1 ml methylPREDNISolone acetate 40 mg/ml injection (9 sources) Corticosteroid Start: 01-26-2024 End: 01-26-2024 methylPREDNISolone acetate (DEPO-Medrol) injection 40 mg Start: 01-26-2024 End: 01-26-2024 40 mg, Intra-articular, Once PRN Procedure, Starting on Thu01/26/24 at 1350, For 1 dose Start: 12-29-2023 End: 12-29-2023 methylPREDNISolone acetate ( DEPO-Medrol) injection 40 mg Start: 12-29-2023 End: 12-29-2023 40 mg, Injection, Once PRN P rocedure, Starting on Thu12/29/23 at 1458, For 1 dose Start: 07-25-2023 End: 07-27-2023 40 mg, intravenous, Every 12 hours scheduled, First dose on 07/25/23 at 2115, May alter blood glucose or insulin requirements. Look-alike/sound-alike medication - verify indication for use. ondansetron 4 mg oral tablet (8 sources) Serotonin-3 Receptor Antagonist End: 07-27-2023 take 1 tablet by mouth every eight hours as needed for nausea and vomiting ondansetron (ZOFRAN) 4 mg tablet Take 1 tablet (4 mg total) by mouth every 8 (eight) hours as needed for nausea or vomiting. 0 07/27/2023 Discontinued (Stop Taking at Discharge) 12 hr orphenadrine citrate 100 mg extended release oral tablet (3 sources) Muscle Relaxant Start: 10-20-2023 End: 11-02-2023 take 1 tablet by mouth twice daily as needed for pain orphenadrine (NORFLEX) 100 mg 12 hr tablet Take 1 tablet (100 mg total) by mouth 2 (two) times a day as needed for muscle spasms or pain. 10 tablet 10/20/2023 11/02/2023 Discontinued (Formulary change) oxyCODONE hydrochloride 5 mg oral tablet (8 sources) Opioid Agonist Start: 08-09-2023 End: 08-11-2023 take 1 tablet by mouth every eight hours as needed for pain oxyCODONE (ROXICODONE) 5 mg immediate release tablet Indications: Acute right hip pain Take 1 tablet (5 mg total) by mouth every 8 (eight) hours as needed for pain for up to 2 days. Max Daily Amount: 15 mg 6 tablet 08/09/2023 08/11/2023 End: 01-12-2024 oxyCODONE (Oxy-IR) 5 MG imme diate release capsule Take 5 mg by mouth 01/12/2024 Discontinued (Med list cleanup) microencapsulated potassium chloride 20 meq extended release oral tablet (20 sources) Start: 07-26-2023 End: 07-07-2024 20 mEq, oral, Daily, First dose on 07/26/23 at 0900, Do not crush or chew. take 1 dose by mouth once daily at mealtime Potassium Chloride 20 MEQ 1 packet with food Orally Once a day Active prazosin 1 mg oral capsule (1 source) alpha-Adrenergic Georgi Start: 01-18-2018 End: 06-08-2018 take 2 mg by mouth twice daily Prazosin Discontinued 2 MG PO Twice daily 120 January 18, 2018 12:00am June 08, 2018 11:26am predniSONE 20 mg oral tablet (7 sources) Start: 09-24-2023 End: 10-01-2023 take 1 tablet by mouth in the morning predniSONE (DELTASONE) 20 mg tablet Indications: Community acquired pneumonia, unspecified laterality Take 1 tablet (20 mg total) by mouth in the morning for 7 days. 7 tablet 09/24/2023 09/30/2023 Discontinued (Therapy completed) Start: 07-28-2023 take [address] [facility] once daily at breakfast predniSONE (DELTASONE) 20 mg tablet Take 2 tablets (40 mg total) by mouth daily with breakfast. 10 tablet 07/28/2023 Active Start: 07-28-2023 End: 07-27-2023 predniSONE (DELTASONE) table t 40 mg propranolol hydrochloride 40 mg oral tablet (20 sources) beta-Adrenergic Georgi Start: 10-07-2024 End: 11-07-2024 take 1 tablet by mouth in the morning propranoloL (INDERAL) 40 mg tablet Indications: Chronic heart failure with preserved ejection fraction (CMS-HCC) Take 1 tablet (40 mg total) by mouth in the morning. 10/27/2024 11/07/2024 Discontinued (Therapy completed) Start: 07-25-2023 End: 07-26-2023 take 40 mg by mouth twice daily 40 mg, oral, 2 times daily, First dose o n 07/25/23 at 2115, Look-alike/sound-alike medication - verify indication for use. End: 10-07-2024 take 1 capsule by mouth every twenty-four hours at bedtime propranolol XL (Innopran XL) 80 MG 24 hr capsule Take 80 mg by mouth at bedtime Do not crush, chew, or split. Active take 1 tablet by claudia every twelve hours Propranolol HCl 80 MG 1 tablet Orally Twice a day Active risperiDONE 1 mg oral tablet (1 source) Atypical Antipsychotic Start: 06-08-2018 End: 06-22-2018 take 1 mg by mouth once daily Risperidone Discontinued 1 MG PO Daily June 08, 2018 1:00am June 22, 2018 9:54am 125 ml sodium chloride 9 mg/ml prefilled syringe (4 sources) Start: 07-25-2023 End: 07-27-2023 3 mL, intravenous, Every 12 hours scheduled, First dose on 07/25/23 at 2115 Start: 07-25-2023 End: 07-27-2023 3 mL, intravenous, As needed , line care, before and after each intermittent use, Starting on 07/25/23 at 2058 Start: 07-25-2023 End: 07-27-2023 take 20 mL intravenously every hour as needed 20 mL/hr, intravenous, Continuous PRN, to maintain patency of lines, Starting on 07/25/23 at 2058 Start: 07-25-2023 End: 07-27-2023 take 25 mL intravenously every hour as needed 25 mL, intravenous, at 100 mL/hr, Administer over 15 Minutes, As needed, line care, line care after IVPB administration, Starting on 07/25/23 at 2058 24 hr venlafaxine 75 mg extended release oral capsule (20 sources) Serotonin and Norepinephrine Reuptake Inhibitor Start: 03-14-2023 End: 07-27-2023 take 1 capsule by mouth once daily in the morning venlafaxine XR (EFFEXOR XR) 75 mg 24 hr capsule TAKE 1 CAPSULE BY MOUTH EVERY DAY IN THE MORNING 03/14/2023 Active Start: 03-14-2023 End: 10-07-2024 venlafaxine XR (EFFEXOR XR) 75 mg 24 hr capsule 03/14/2023 10/07/2024 Discontinued (Discontinued by another clinician) Start: 10-17-2021 End: 10-07-2024 take 1 capsule by mouth every twenty-four hours in the morning venlafaxine XR (EFFEXOR-XR) 150 mg 24 hr capsule Take 225 mg by mouth in the morning. 10/17/2021 10/07/2024 Discontinued (Discontinued by another clinician) take [address] [facility] once daily venlafaxine XR (Effexor XR) 150 MG 24 hr capsule Take 150 mg by mouth Daily Do not crush or chew. Active Effexor Active Problems Active Problems Problem Classification Problem Date Documented Date Episodic/Chronic Abdominal hernia (5 sources) Gastroesophageal reflux disease with hiatal hernia; Translations: [Diaphragmatic hernia without obstruction or gangrene] Onset: 11-07-2024 11-07-2024 Episodic Acute and unspecified renal failure (5 sources) Acute injury of kidney; Translations: [Acute kidney failure, unspecified] Onset: 05-27-2023 05-27-2023 Episodic Acute myocardial infarction (20 sources) Myocardial infarction; Translations: [Non-ST elevation (NSTEMI) myocardial infarction] Onset: 01-09-2020 01-22-2024 Chronic Anxiety disorders (20 sources) Posttraumatic stress disorder; Translations: [Post-traumatic stress disorder, unspecified] Onset: 08-28-2015 Resolved: 06-25-2023 01-08-2018 Chronic Blindness and vision defects (20 sources) Visual impairment; Translations: [Unspecified visual loss] Onset: 04-15-2022 04-15-2022 Chronic Chronic kidney disease (20 sources) Chronic kidney disease stage 3A ; Translations: [Stage 3a chronic kidney disease ([facility])] Onset: 07-07-2024 Resolved: 09-20-2024 07-01-2023 Chronic Chronic kidney disease (3 sources) Chronic kidney disease; Translations: [Chronic kidney disease, stage 3a] Onset: 07-07-2024 Chronic obstructive pulmonary disease and bronchiectasis (20 sources) Chronic obstructive lung disease; Translations: [Chronic obstructive pulmonary disease, unspecified] Onset: 04-15-2022 01-22-2024 Chronic Conditions associated with dizziness or vertigo (1 source) Dizziness Onset: 11-28-2024 Episodic Congestive heart failure; nonhypertensive (20 sources) Chronic heart failure co-occurrent with normal ejection fraction; Translations: [Chronic diastolic (congestive) heart failure] Onset: 02-27-2022 Resolved: 06-01-2023 01-22-2024 Chronic Coronary atherosclerosis and other heart disease (20 sources) Coronary arteriosclerosis; Translations: [Atherosclerotic heart disease of [place] coronary artery without angina pectoris] Onset: 05-08-2013 Resolved: 03-31-2023 01-22-2024 Chronic Deficiency and other anemia (6 sources) Microcytic anemia; Translations: [Iron deficiency anemia, unspecified] Onset: 12-17-2024 12-15-2024 Episodic Deficiency and other anemia (2 sources) Iron deficiency anemia, unspecified; Translations: [Iron deficiency anemia, unspecified] Onset: 12-15-2024 Episodic Diabetes mellitus with complications (2 sources) Type 2 diabetes mellitus; Translations: [Type 2 diabetes mellitus with diabetic chronic kidney disease] Onset: 10-27-2024 10-27-2024 Chronic Esophageal disorders (20 sources) Gastroesophageal reflux disease; Translations: [Gastro-esophageal reflux disease without esophagitis] Onset: 10-21-2022 01-22-2024 Chronic Essential hypertension (20 sources) Essential hypertension; Translations: [Essential (primary) hypertension] Onset: 09-26-2022 01-22-2024 Chronic Headache; including migraine (12 sources) Migraine; Translations: [Migraine, unspecified, not intractable, without status migrainosus] Onset: 04-29-2023 01-22-2024 Chronic Heart valve disorders (13 sources) Tricuspid incompetence, non-rheumatic ; Translations: [Nonrheumatic tricuspid (valve) insufficiency] Onset: 11-28-2024 11-28-2024 Chronic Mood disorders (20 sources) Bipolar II disorder, most recent episode major depressive; Translations: [Bipolar II disorder] Onset: 04-15-2022 01-08-2018 Chronic Nausea and vomiting (5 sources) Nausea and vomiting; Translations: [Nausea with vomiting, unspecified] Onset: 10-27-2024 10-27-2024 Episodic Nutritional deficiencies (12 sources) Vitamin D deficiency; Translations: [Vitamin D deficiency, unspecified] Onset: 04-29-2023 01-22-2024 Chronic Osteoarthritis (20 sources) Primary osteoarthritis, left shoulder; Translations: [Arthropathy, unspecified, shoulder region] Onset: 10-21-2022 01-26-2024 Chronic Other aftercare (1 source) Encounter for therapeutic drug level monitoring; Translations: [Encounter for therapeutic drug level monitoring] Onset: 12-15-2024 Episodic Other aftercare (1 source) Other ad terminal makeup operator (current) drug therapy; Translations: [Other jail (current) drug therapy] Onset: 12-15-2024 Episodic Other circulatory disease (1 source) Orthostatic hypotension; Translations: [Orthostatic hypotension] 10-07-2024 Episodic Other connective tissue disease (1 source) Trochanteric bursitis, left hip Episodic Other connective tissue disease (6 sources) Myofascial pain syndrome; Translations: [Myalgia, unspecified site] 02-09-2024 Episodic Other connective tissue disease (3 sources) Fibromyalgia; Translations: [Fibromyalgia] 11-03-2023 Episodic Other connective tissue disease (2 sources) Tendonitis of right patellar tendon; Translations: [Patellar tendinitis, right knee] 11-07-2024 Episodic Other connective tissue disease (2 sources) Patellar tendinitis, right knee; Translations: [Patellar tendinitis, right knee] Onset: 11-07-2024 Episodic Other diseases of veins and lymphatics (4 sources) Venous insufficiency of leg; Translations: [Venous insufficiency (chronic) (peripheral)] 09-30-2023 Episodic Other diseases of veins and lymphatics (1 source) Venous insufficiency (chronic) (peripheral); Translations: [Venous insufficiency (chronic) (peripheral)] Onset: 10-27-2024 Episodic Other liver diseases (20 sources) Disease of liver; Translations: [Liver disease, unspecified] Onset: 04-15-2022 01-22-2024 Chronic Other lower respiratory disease (1 source) Acute respiratory distress Onset: 04-15-2023 Episodic Other lower respiratory disease (1 source) Shortness of breath; Translations: [Shortness of breath] Onset: 12-04-2024 Episodic Other lower respiratory disease (1 source) Dyspnea, unspecified; Translations: [Dyspnea, unspecified] Onset: 12-03-2024 Episodic Other nervous system disorders (2 sources) Polyneuropathy, unspecified; Translations: [Polyneuropathy, unspecified] Onset: 03-07-2024 Chronic Other non-traumatic joint disorders (2 sources) Pain in left shoulder; Translations: [Pain in joint, shoulder region] 01-26-2024 Episodic Other nutritional; endocrine; and metabolic disorders (12 sources) Obesity caused by energy imbalance; Translations: [Morbid (severe) obesity due to excess calories] Onset: 04-30-2023 01-22-2024 Chronic Other nutritional; endocrine; and metabolic disorders (20 sources) Body mass index 30+ - obesity; Translations: [Obesity, unspecified] Onset: 01-30-2020 Resolved: 09-20-2024 05-28-2023 Chronic Other nutritional; endocrine; and metabolic disorders (20 sources) Body mass index 40+ - severely obese; Translations: [Body mass index (BMI) 40.0-44.9, adult] Onset: 06-01-2023 06-01-2023 Chronic Other nutritional; endocrine; and metabolic disorders (1 source) Body mass index (BMI) 40.0-44.9, adult; Translations: [Body mass index (BMI) 40.0-44.9, adult] Onset: 06-01-2023 Chronic Personality disorders (12 sources) Borderline personality disorder; Translations: [Borderline personality disorder] Onset: 08-28-2015 01-22-2024 Chronic Pulmonary heart disease (13 sources) Pulmonary hypertension; Translations: [Pulmonary hypertension, unspecified] Onset: 11-28-2024 11-28-2024 Chronic Residual codes; unclassified (20 sources) Obstructive sleep apnea syndrome; Translations: [Obstructive sleep apnea (adult) (pediatric)] Onset: 07-31-2022 01-22-2024 Chronic Residual codes; unclassified (1 source) Sleep related hypoxemia; Translations: [Sleep related hypoventilation in conditions classified elsewhere] 08-14-2023 Chronic Residual codes; unclassified (1 source) Obstructive sleep apnea (adult) (pediatric); Translations: [Obstructive sleep apnea (adult) (pediatric)] Onset: 08-28-2023 Chronic Residual codes; unclassified (1 source) Edema Onset: 11-28-2024 Episodic Respiratory failure; insufficiency; arrest (adult) (20 sources) Chronic respiratory failure; Translations: [Chronic respiratory failure with hypoxia] Onset: 07-25-2023 01-22-2024 Chronic Spondylosis; intervertebral disc disorders; other back problems (20 sources) Bilateral inflammation of sacroiliac joint; Translations: [Sacroiliitis, not elsewhere classified] Onset: 07-07-2024 Resolved: 09-20-2024 Chronic Substance-related disorders (20 sources) Cannabis abuse; Translations: [Cannabis abuse, uncomplicated] Onset: 10-16-2020 Resolved: 09-20-2024 01-16-2018 Chronic Superficial injury; contusion (1 source) Contusion of lower leg; Translations: [Contusion of unspecified lower leg, initial encounter] 03-29-2024 Episodic Unclassified (1 source) Low back pain, unspecified; Translations: [Low back pain, unspecified] Onset: 12-11-2022 Unclassified (1 source) Chronic heart failure co-occurrent with normal ejection fraction 11-28-2024 Unclassified (2 sources) Autogenerated Problem Onset: 12-15-2024 12-15-2024 Unclassified (1 source) Controlled Substance Onset: 07-07-2024 Unclassified (1 source) Error Onset: 01-14-2024 Unclassified (1 source) ill Onset: 12-03-2024 Past or Other Problems Problem Classification Problem Date Documented Da te Episodic/Chronic Abdominal pain (1 source) Right inguinal pain; Translations: [Right lower quadrant pain] 08-10-2023 Episodic Cardiac dysrhythmias (5 sources) Ventricular tachycardia; Translations: [Ventricular tachycardia] Onset: 09-20-2024 Resolved: 09-20-2024 09-20-2024 Chronic Complications of surgical procedures or medical care (6 sources) Non-healing surgical wound; Translations: [Other complications of procedures, not elsewhere classified, initial encounter] Onset: 01-14-2023 01-14-2023 Episodic Coronary atherosclerosis and other heart disease (8 sources) Aortocoronary bypass graft present; Translations: [Presence of aortocoronary bypass graft] Onset: 04-29-2023 Resolved: 03-15-2024 03-15-2024 Episodic Deficiency and other anemia (12 sources) Iron deficiency anemia; Translations: [Iron deficiency anemia, unspecified] Onset: 04-29-2023 01-22-2024 Episodic Delirium, dementia, and amnestic and other cognitive disorders (20 sources) Dementia; Translations: [Unspecified dementia, mild, without behavioral disturbance, psychotic disturbance, mood disturbance, and anxiety] Onset: 10-21-2022 Resolved: 03-15-2024 03-15-2024 Chronic Diabetes mellitus without complication (20 sources) Hyperglycemia; Translations: [Hyperglycemia, unspecified] Onset: 08-14-2020 01-22-2024 Episodic Disorders of lipid metabolism (6 sources) Hyperlipidemia; Translations: [Hyperlipidemia, unspecified] Onset: 04-29-2023 Resolved: 09-20-2024 09-20-2024 Chronic Fluid and electrolyte disorders (20 sources) Hypokalemia; Translations: [Hypokalemia] Onset: 08-14-2020 Resolved: 11-05-2021 01-22-2024 Episodic Headache; including migraine (16 sources) Chronic headache disorder; Translations: [Chronic headache] Onset: 02-05-2015 01-22-2024 Episodic Malaise and fatigue (20 sources) Asthenia; Translations: [Weakness] Onset: 05-28-2023 Resolved: 03-15-2024 03-15-2024 Episodic Mood disorders (20 sources) Mood disorders Onset: 01-04-2024 Resolved: 11-07-2024 01-04-2024 Nutritional deficiencies (5 sources) Cobalamin deficiency; Translations: [Deficiency of other specified B group vitamins] Onset: 09-30-2023 09-30-2023 Episodic Other circulatory disease (7 sources) Low blood pressure; Translations: [Other hypotension] Onset: 08-14-2020 Resolved: 11-05-2021 11-05-2021 Episodic Other connective tissue disease (12 sources) Muscle weakness; Translations: [Muscle weakness (generalized)] Onset: 04-30-2023 01-22-2024 Episodic Other diseases of kidney and ureters (6 sources) Acute renal insufficiency; Translations: [Disorder of kidney and ureter, unspecified] Onset: 04-15-2023 04-15-2023 Episodic Other fractures (20 sources) Fracture of sixth thoracic vertebra; Translations: [Wedge compression fracture of T5-T6 vertebra, subsequent encounter for fracture with routine healing] Onset: 08-28-2023 01-22-2024 Episodic Other fractures (2 sources) Compression fracture of thoracic spine; Translations: [Wedge compression fracture of T7-T8 vertebra, subsequent encounter for fracture with routine healing] 12-24-2023 Episodic Other inflammatory condition of skin (7 sources) Psoriasis; Translations: [Psoriasis, unspecified] Onset: 05-02-2023 Resolved: 03-15-2024 03-15-2024 Chronic Other injuries and conditions due to external causes (6 sources) Injury of breast; Translations: [Unspecified injury of thorax, initial encounter] Onset: 04-15-2022 04-15-2022 Episodic Other lower respiratory disease (7 sources) Solitary nodule of lung; Translations: [Solitary pulmonary nodule] Onset: 04-29-2023 Resolved: 03-15-2024 03-15-2024 Episodic Other lower respiratory disease (20 sources) Dyspnea; Translations: [Shortness of breath] Onset: 11-05-2021 Resolved: 07-01-2023 07-01-2023 Episodic Other lower respiratory disease (1 source) Hypoxia; Translations: [Hypoxemia] 07-27-2023 Episodic Other nervous system disorders (7 sources) Difficulty walking; Translations: [Difficulty in walking, not elsewhere classified] Onset: 04-28-2023 Resolved: 03-15-2024 03-15-2024 Chronic Other nervous system disorders (14 sources) Polyneuropathy; Translations: [Polyneuropathy, unspecified] Onset: 04-29-2023 Resolved: 03-15-2024 03-15-2024 Chronic Other nervous system disorders (1 source) Ataxia, unspecified; Translations: [Ataxia, unspecified] Onset: 01-24-2022 Episodic Other nutritional; endocrine; and metabolic disorders (20 sources) H/O: raised blood lipids; Translations: [Personal history of other endocrine, nutritional and metabolic disease] Onset: 09-26-2022 01-22-2024 Episodic Pathological fracture (2 sources) Pathological fracture of vertebra due to osteoporosis; Translations: [Other osteoporosis with current pathological fracture, vertebra(e), subsequent encounter for fracture with routine healing] 12-24-2023 Episodic Pneumonia (except that caused by tuberculosis or sexually transmitted disease) (20 sources) Pneumonia; Translations: [Pneumonia, unspecified organism] Onset: 04-15-2023 Resolved: 03-15-2024 03-15-2024 Episodic Pulmonary heart disease (20 sources) Acute pulmonary embolism; Translations: [Other pulmonary embolism without acute cor pulmonale] Onset: 08-28-2023 Resolved: 07-07-2024 01-22-2024 Episodic Residual codes; unclassified (7 sources) Dependence on enabling machine or device; Translations: [Dependence on other enabling machines and devices] Onset: 04-29-2023 Resolved: 03-15-2024 03-15-2024 Chronic Residual codes; unclassified (20 sources) 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; Translations: [Dependence on other enabling machines and devices] Onset: 10-21-2022 Resolved: 11-06-2022 11-06-2022 Chronic Residual codes; unclassified (1 source) Viral syndrome; Translations: [Other general symptoms and signs] 09-24-2023 Episodic Respiratory failure; insufficiency; arrest (adult) (20 sources) Acute respiratory failure, unspecified whether with hypoxia or hypercapnia; Translations: [Acute hypoxemic and hypercapnic respiratory failure] Onset: 04-14-2023 Resolved: 12-04-2024 05-18-2023 Episodic Screening and history of mental health and substance abuse codes (20 sources) Ex-smoker; Translations: [Personal history of nicotine dependence] Onset: 09-26-2022 Resolved: 03-15-2024 03-15-2024 Episodic Skull and face fractures (20 sources) Fracture of tooth ; Translations: [Fracture of tooth (traumatic), initial encounter for closed fracture] Onset: 10-21-2022 10-21-2022 Episodic Spondylosis; intervertebral disc disorders; other back problems (20 sources) Spinal stenosis, lumbar region without neurogenic claudication; Translations: [Low back pain] Onset: 08-14-2020 Episodic Unclassified (1 source) Bilateral low back pain, unspecified chronicity, unspecified whether sciatica present M54.50 Viral infection (20 sources) Disease caused by 2019-nCoV; Translations: [COVID-19] Onset: 04-15-2023 Resolved: 03-15-2024 03-15-2024 Episodic Results Test Name Value Interpretation Reference Range Facility BASIC METABOLIC PANELon 09-0 Anion gap [Moles/Vol] 9 mmol/L Normal 5-15 [facility] Comment on above: Performed By: #### L ACTS #### [facility] ([address] [address] VIR Calcium [Mass/Vol] 9.1 mg/dL Normal 8.5-10.5 [facility] Comment on above: Performed By: #### L ACTS #### [facility] ([address] [address] VIR Chloride [Moles/Vol] 102 mmol/L Normal 98-109 [facility] Comment on above: Performed By: #### L ACTS #### [facility] ([address] [address] VIR CO2 [Moles/Vol] 31 mmol/L Normal 22-32 [facility] Comment on above: Performed By: #### L ACTS #### [facility] ([address] [address] VIR Creatinine [Mass/Vol] 1.27 mg/dL High 0.40-1.00 [facility] Comment on above: Result Comment: METH OD TRACEABLE TO IDMS STANDARD Performed By: #### L ACTS #### [facility] ([address] [address] VIR GFR/1.73 sq M.predicted among non-blacks MDRD (S/P/Bld) [Vol rate/Area] 48 mL/min/{1.73_m2} Low >=60 [facility] Comment on above: Result Comment: Repo rted eGFR is based on the CKD-EPI 2020 equation that does not use a race coefficient. Performed By: #### L ACTS #### [facility] ([address] [address] VIR Glucose [Mass/Vol] 91 mg/dL Normal 65-99 [facility] Comment on above: Performed By: #### L ACTS #### [facility] ([address] [address] VIR Potassium [Moles/Vol] 4.2 mmol/L Normal 3.5-5.0 [facility] Comment on above: Performed By: #### L ACTS #### [facility] ([address] [address] VIR Sodium [Moles/Vol] 142 mmol/L Normal 134-146 [facility] Comment on above: Performed By: #### L ACTS #### [facility] ([address] [address] VIR Urea nitrogen [Mass/Vol] 16 mg/dL Normal 5-27 [facility] Comment on above: Performed By: #### L ACTS #### [facility] ([address] [address] VIR BASIC METABOLIC PANELon 08-2 Anion gap [Moles/Vol] 8 mmol/L Normal 5-15 [facility] Comment on above: Performed By: #### B MP #### [facility] ([facility]) [address] [place] [address] VIR Calcium [Mass/Vol] 9.0 mg/dL Normal 8.5-10.5 [facility] Comment on above: Performed By: #### B MP #### [facility] ([facility]) [address] [place] [address] VIR Chloride [Moles/Vol] 101 mmol/L Normal 98-109 [facility] Comment on above: Performed By: #### B MP #### [facility] ([facility]) [address] [place] [address] VIR CO2 [Moles/Vol] 33 mmol/L High 22-32 [facility] Comment on above: Performed By: #### B MP #### [facility] ([facility]) [address] [place] [address] VIR Creatinine [Mass/Vol] 1.32 mg/dL High 0.40-1.00 [facility] Comment on above: Result Comment: METH OD TRACEABLE TO IDMS STANDARD Performed By: #### B MP #### [facility] ([facility]) [address] [place] [address] VIR GFR/1.73 sq M.predicted among non-blacks MDRD (S/P/Bld) [Vol rate/Area] 46 mL/min/{1.73_m2} Low >=60 [facility] Comment on above: Result Comment: Repo rted eGFR is based on the CKD-EPI 1 equation that does not use a race coefficient. Performed By: #### B MP #### [facility] ([facility]) [address] [place] [address] VIR Glucose [Mass/Vol] 106 mg/dL High 65-99 [facility] Comment on above: Performed By: #### B MP #### [facility] ([facility]) [address] [place] [address] VIR Potassium [Moles/Vol] 4.5 mmol/L Normal 3.5-5.0 [facility] Comment on above: Performed By: #### B MP #### [facility] ([facility]) [address] [place] [address] VIR Sodium [Moles/Vol] 142 mmol/L Normal 134-146 [facility] Comment on above: Performed By: #### B MP #### [facility] ([facility]) [address] [place] [address] VIR Urea nitrogen [Mass/Vol] 21 mg/dL Normal 5-27 [facility] Comment on above: Performed By: #### B MP #### [facility] ([facility]) [address] [place] [address] VIR Basic Metabolic Panelon 11-26 Anion gap [Moles/Vol] 8 mmol/L 5 - 15 mmol/L [facility] Calcium [Mass/Vol] 9 mg/dL 8.5 - 10. 5 mg/dL [facility] Chloride [Moles/Vol] 101 mmol/L 98 - 109 mmol/L [facility] CO2 [Moles/Vol] 33 mmol/L High 22 - 32 mmol/L [facility] Creatinine [Mass/Vol] 1.32 mg/dL High 0.40 - 1.00 mg/dL [facility] Comment on above: METHOD TRACEABLE TO IDMS STANDARD EGFR Non-Race Dependent 46 Low - PINF [facility] Comment on above: Reported eGFR is bas ed on the CKD-EPI 2020 equation that does not use a race coefficient. Glucose [Mass/Vol] 106 mg/dL High 65 - 99 mg/dL [facility] Interpretation and review of laboratory results Abnormal [facility] Potassium [Moles/Vol] 4.5 mmol/L 3.5 - 5.0 mmol/L [facility] Sodium [Moles/Vol] 142 mmol/L 134 - 146 mmol/L [facility] Urea nitrogen [Mass/Vol] 21 mg/dL 5 - 27 mg/dL [facility] BASIC METABOLIC PANELon 11-25 Anion gap [Moles/Vol] 10 mmol/L Normal 5-15 [facility] Comment on above: Performed By: #### L ACTS #### [facility] ([address] [place] [address] VIR Calcium [Mass/Vol] 9.6 mg/dL Normal 8.5-10.5 [facility] Comment on above: Performed By: #### L ACTS #### [facility] ([address] [place] [address] VIR Chloride [Moles/Vol] 98 mmol/L Normal 98-109 [facility] Comment on above: Performed By: #### L ACTS #### [facility] ([address] [place] [address] VIR CO2 [Moles/Vol] 35 mmol/L High 22-32 [facility] Comment on above: Performed By: #### L ACTS #### [facility] ([address] [place] [address] VIR Creatinine [Mass/Vol] 1.47 mg/dL High 0.40-1.00 [facility] Comment on above: Result Comment: METH OD TRACEABLE TO IDMS STANDARD Performed By: #### L ACTS #### [facility] ([address] [place] [address] VIR GFR/1.73 sq M.predicted among non-blacks MDRD (S/P/Bld) [Vol rate/Area] 40 mL/min/{1.73_m2} Low >=60 [facility] Comment on above: Result Comment: Repo rted eGFR is based on the CKD-EPI 2020 equation that does not use a race coefficient. Performed By: #### L ACTS #### [facility] ([address] [place] [address] VIR Glucose [Mass/Vol] 110 mg/dL High 65-99 [facility] Comment on above: Performed By: #### L ACTS #### [facility] ([address] [place] [address] VIR Potassium [Moles/Vol] 4.5 mmol/L Normal 3.5-5.0 [facility] Comment on above: Performed By: #### L ACTS #### [facility] ([address] [place] [address] VIR Sodium [Moles/Vol] 143 mmol/L Normal 134-146 [facility] Comment on above: Performed By: #### L ACTS #### [facility] ([address] [place] [address] VIR Urea nitrogen [Mass/Vol] 23 mg/dL Normal 5-27 [facility] Comment on above: Performed By: #### L ACTS #### [facility] ([address] [place] [address] VIR BASIC METABOLIC PANELon - Anion gap [Moles/Vol] 6 mmol/L Normal 5-15 [facility] Comment on above: Performed By: #### V BG #### [facility] ([address] [place] [address] VIR Calcium [Mass/Vol] 9.2 mg/dL Normal 8.5-10.5 [facility] Comment on above: Performed By: #### V BG #### [facility] ([address] [place] [address] VIR Chloride [Moles/Vol] 103 mmol/L Normal 98-109 [facility] Comment on above: Performed By: #### V BG #### [facility] ([address] [place] [address] VIR CO2 [Moles/Vol] 34 mmol/L High 22-32 [facility] Comment on above: Performed By: #### V BG #### [facility] [place] [address] VIR Creatinine [Mass/Vol] 0.84 mg/dL Normal 0.40-1.00 [facility] Comment on above: Result Comment: METH OD TRACEABLE TO IDMS STANDARD Performed By: #### V BG #### [facility] ([address] [place] [address] VIR GFR/1.73 sq M.predicted among non-blacks MDRD (S/P/Bld) [Vol rate/Area] 79 mL/min/{1.73_m2} Normal >=60 [facility] Comment on above: Result Comment: eGFR not reported due to non-numeric value for Creatinine. Reported eGFR is based on the CKD-EPI 2020 equation that does not use a race coefficient. Performed By: #### V BG #### [address] [place] [address] VIR Glucose [Mass/Vol] 126 mg/dL High 65-99 [facility] Comment on above: Performed By: #### V BG #### [address] [place] [address] VIR Potassium [Moles/Vol] 4.3 mmol/L Normal 3.5-5.0 [facility] Comment on above: Performed By: #### V BG #### [address] [place] [address] VIR Sodium [Moles/Vol] 143 mmol/L Normal 134-146 [facility] Comment on above: Performed By: #### V BG #### [address] [place] [address] VIR Urea nitrogen [Mass/Vol] 24 mg/dL Normal 5-27 [facility] Comment on above: Performed By: #### V BG #### [facility] ([address] [place] [address] VIR BLOOD GAS, VENOUSon 12-07-19 25 BASE,EXCESS 10.0 mmol/L High 0.0-2.0 [facility] Comment on above: Performed By: #### L ACTS #### [facility] ([address] [place] [address] VIR HCO3 (Bld) [Moles/Vol] 37.4 mmol/L High 20.0-24.0 [facility] Comment on above: Performed By: #### L ACTS #### [facility] ([address] [place] [address] VIR Oxygen saturation in Blood 80.0 % Normal [facility] Comment on above: Performed By: #### L ACTS #### [facility] ([address] [place] [address] VIR PCO2 VENOUS 63.6 mmHg High 35.0-50.0 [facility] Comment on above: Performed By: #### L ACTS #### [facility] ([address] [place] [address] VIR PH VENOUS 7.378 Normal 7.320-7.42 0 [facility] Comment on above: Performed By: #### L ACTS #### [facility] ([address] [place] [address] VIR PO2 VENOUS 47 mmHg Normal 30-50 [facility] Comment on above: Performed By: #### L ACTS #### [facility] ([address] [place] [address] VIR POC RAVINDRA'S TEST N/A Normal [facility] Comment on above: Performed By: #### L ACTS #### [facility] ([address] [place] [address] VIR SAMPLE SITE N/A Normal [facility] Comment on above: Performed By: #### L ACTS #### [facility] ([address] [place] [address] VIR SAMPLE TYPE VENOUS Normal [facility] Comment on above: Performed By: #### L ACTS #### [facility] ([address] [place] [address] VIR SOURCE OF OXYGEN NC Normal [facility] Comment on above: Performed By: #### L ACTS #### [facility] ([address] [place] [address] VIR BLOOD GAS, VENOUS VBG BLOOD GAS, VENOU S Cancelled Normal [facility] PHOSPHORUSon 12-06-2024 Phosphate [Mass/Vol] 3.1 mg/dL Normal 2.4-4.9 [facility] Comment on above: Performed By: #### L ACTS #### [facility] ([address] [place] [address] VIR BASIC METABOLIC PANELon 11-25 Anion gap [Moles/Vol] 7 mmol/L Normal 5-15 [facility] Comment on above: Performed By: #### V BG #### [facility] ([address] [place] [address] VIR Calcium [Mass/Vol] 8.8 mg/dL Normal 8.5-10.5 [facility] Comment on above: Performed By: #### V BG #### [facility] ([address] [place] [address] VIR Chloride [Moles/Vol] 96 mmol/L Low 98-109 [facility] Comment on above: Performed By: #### V BG #### [facility] ([address] [place] [address] VIR CO2 [Moles/Vol] 34 mmol/L High 22-32 [facility] Comment on above: Performed By: #### V BG #### [facility] [address] [place] [address] VIR Creatinine [Mass/Vol] 0.91 mg/dL Normal 0.40-1.00 [facility] Comment on above: Result Comment: METH OD TRACEABLE TO IDMS STANDARD Performed By: #### V BG #### [facility] ([address] [place] [address] VIR GFR/1.73 sq M.predicted among non-blacks MDRD (S/P/Bld) [Vol rate/Area] 71 mL/min/{1.73_m2} Normal >=60 [facility] Comment on above: Result Comment: eGFR not reported due to non-numeric value for Creatinine. Reported eGFR is based on the CKD-EPI 2020 equation that does not use a race coefficient. Performed By: #### V BG #### [facility] [facility] [address] [place] [address] VIR Glucose [Mass/Vol] 140 mg/dL High 65-99 [facility] Comment on above: Performed By: #### V BG #### [facility] ([address] [place] [address] VIR Potassium [Moles/Vol] 4.0 mmol/L Normal 3.5-5.0 [facility] Comment on above: Performed By: #### V BG #### [address] [place] [address] VIR Sodium [Moles/Vol] 137 mmol/L Normal 134-146 [facility] Comment on above: Performed By: #### V BG #### [address] [place] [address] VIR Urea nitrogen [Mass/Vol] 19 mg/dL Normal 5-27 [facility] Comment on above: Performed By: #### V BG #### [address] [place] [address] VIR BEDSIDE GLUCOSEon 08-11-2025 Glucose [Mass/Vol] 147 mg/dL High 65-99 [facility] Comment on above: Performed By: #### V BG #### [facility] ([address] [place] [address] VIR Glucose [Mass/Vol] 144 mg/dL High 65-99 [facility] Comment on above: Performed By: #### V BG #### [facility] ([address] [place] [address] VIR BLOOD GAS, VENOUSon 12-06-19 25 BASE,EXCESS 7.0 mmol/L High 0.0-2.0 [facility] Comment on above: Performed By: #### V BG #### [facility] ([address] [place] [address] VIR HCO3 (Bld) [Moles/Vol] 34.7 mmol/L High 20.0-24.0 [facility] Comment on above: Performed By: #### V BG #### [facility] ([address] [place] [address] VIR Oxygen saturation in Blood 81.0 % Normal [facility] Comment on above: Performed By: #### V BG #### [facility] ([address] [place] [address] VIR PCO2 VENOUS 64.3 mmHg High 35.0-50.0 [facility] Comment on above: Performed By: #### V BG #### [facility] ([address] [place] [address] VIR PH VENOUS 7.340 Normal 7.320-7.42 0 [facility] Comment on above: Performed By: #### V BG #### [facility] ([address] [place] [address] VIR PO2 VENOUS 50 mmHg Normal 30-50 [facility] Comment on above: Performed By: #### V BG #### [facility] ([facility]) [address] [place] [address] VIR POC RAVINDRA'S TEST N/A Normal [facility] Comment on above: Performed By: #### V BG #### [facility] ([facility]) [address] [place] [address] [place] [address] VIR SAMPLE SITE N/A Normal [facility] Comment on above: Performed By: #### V BG #### [facility] ([facility]) [address] [place] [address] [place] [address] VIR SAMPLE TYPE VENOUS Normal [facility] Comment on above: Performed By: #### V BG #### [facility] ([address] [place] [address] VIR SOURCE OF OXYGEN NC Normal [facility] Comment on above: Performed By: #### V BG #### [facility] ([facility]) [address] [place] [address] [place] [address] VIR BLOOD GAS, VENOUS VBG BLOOD GAS, VENOU S Cancelled Normal [facility] CBC WITH AUTO DIFFERENTIALon 12-05-2024 BASOPHILS ABSOLUTE COUNT (10*3/UL) BY AUTOMATED COUNT 0.0 10*3/uL Normal 0.0-0.2 [facility] Comment on above: Result Comment: This is an appended report. These results have been appended to a previously preliminary verified report. Performed By: #### V BG #### [facility] ([facility]) [address] [place] [address] [place] [address] VIR BASOPHILS RELATIVE PERCENT BY AUTOMATED COUNT 0.2 % Normal [facility] Comment on above: Result Comment: This is an appended report. These results have been appended to a previously preliminary verified report. Performed By: #### V BG #### [facility] ([facility]) [address] [place] [address] [place] [address] VIR CELLAVISION ANISOCYTOSIS IN BLOOD BY LIGHT MICROSCOPY 2+ Normal [facility] Comment on above: Result Comment: This is an appended report. These results have been appended to a previously preliminary verified report. Performed By: #### V BG #### [facility] ([address] [address] VIR CELLAVISION DIFFERENTIAL TYPE AUTOMATED DIFFERENTIAL Normal [facility] Comment on above: Result Comment: This is an appended report. These results have been appended to a previously preliminary verified report. Performed By: #### V BG #### [facility] ([address] [address] VIR CELLAVISION MICROCYTES IN BLOOD BY LIGHT MICROSCOPY 2+ Normal [facility] Comment on above: Result Comment: This is an appended report. These results have been appended to a previously preliminary verified report. Performed By: #### V BG #### [facility] ([address] [address] VIR CELLAVISION RBC MORPHOLOGY abnormal Normal [facility] Comment on above: Result Comment: This is an appended report. These results have been appended to a previously preliminary verified report. Performed By: #### V BG #### [facility] ([address] [address] VIR CELLAVISION STOMATOCYTES IN BLOOD BY LIGHT MICROSCOPY 3+ Normal [facility] Comment on above: Result Comment: This is an appended report. These results have been appended to a previously preliminary verified report. Performed By: #### V BG #### [facility] ([address] [address] VIR Eosinophils (Bld) [#/Vol] 0.0 10*3/uL Normal 0.0-0.4 [facility] Comment on above: Result Comment: This is an appended report. These results have been appended to a previously preliminary verified report. Performed By: #### V BG #### [facility] ([address] [address] VIR EOSINOPHILS RELATIVE PERCENT BY AUTOMATED COUNT 0.0 % Normal [facility] Comment on above: Result Comment: This is an appended report. These results have been appended to a previously preliminary verified report. Performed By: #### V BG #### [facility] ([address] [address] VIR Erythrocyte distribution width (RBC) [Ratio] 19.6 % High 11.5-15 [facility] Comment on above: Performed By: #### V BG #### [address] [address] VIR Hematocrit (Bld) [Volume fraction] 27.7 % Low 35-47 [facility] Comment on above: Performed By: #### V BG #### [address] [address] VIR Hemoglobin (Bld) [Mass/Vol] 8.2 g/dL Low 11.7-15.5 [facility] Comment on above: Performed By: #### V BG #### [address] [address] VIR LYMPHOCYTES ABSOLUTE COUNT (10*3/UL) BY AUTOMATED COUNT 0.5 10*3/uL Low 1.0-3.5 [facility] Comment on above: Result Comment: This is an appended report. These results have been appended to a previously preliminary verified report. Performed By: #### V BG #### [facility] ([address] [address] VIR LYMPHOCYTES RELATIVE PERCENT BY AUTOMATED COUNT 5.3 % Normal [facility] Comment on above: Result Comment: This is an appended report. These results have been appended to a previously preliminary verified report. Performed By: #### V BG #### [facility] ([address] [place] [address] VIR MCH (RBC) [Entitic mass] 19.4 pg Low 27-34 [facility] Comment on above: Performed By: #### V BG #### [facility] ([facility]) [address] [place] [address] VIR MCHC (RBC) [Mass/Vol] 29.7 g/dL Low 32-36 [facility] Comment on above: Performed By: #### V BG #### [facility] ([address] [address] VIR MCV (RBC) [Entitic vol] 65 fL Low 80-100 [facility] Comment on above: Performed By: #### V BG #### [facility] ([address] [address] VIR MONOCYTES ABSOLUTE COUNT (10*3/UL) BY AUTOMATED COUNT 0.2 10*3/uL Normal 0.0-0.9 [facility] Comment on above: Result Comment: This is an appended report. These results have been appended to a previously preliminary verified report. Performed By: #### V BG #### [facility] ([address] [address] VIR MONOCYTES RELATIVE PERCENT BY AUTOMATED COUNT 2.3 % Normal [facility] Comment on above: Result Comment: This is an appended report. These results have been appended to a previously preliminary verified report. Performed By: #### V BG #### [facility] ([address] [address] VIR NEUTROPHILS ABSOLUTE COUNT BY AUTOMATED COUNT 8.3 10*3/uL High 1.5-6.6 [facility] Comment on above: Result Comment: This is an appended report. These results have been appended to a previously preliminary verified report. Performed By: #### V BG #### [facility] ([address] [address] VIR NEUTROPHILS RELATIVE PERCENT BY AUTOMATED COUNT 92.2 % Normal [facility] Comment on above: Result Comment: This is an appended report. These results have been appended to a previously preliminary verified report. Performed By: #### V BG #### [facility] ([address] [place] [address] VIR Platelet mean volume (Bld) [Entitic vol] 7.3 fL Normal 7-12 [facility] Comment on above: Performed By: #### V BG #### [facility] ([address] [place] [address] VIR Platelets (Bld) [#/Vol] 238 10*3/uL Normal 150-450 [facility] Comment on above: Performed By: #### V BG #### [facility] ([address] [place] [address] VIR RBC COUNT 4.24 X10E12/L Normal 3.8-5.2 [facility] Comment on above: Performed By: #### V BG #### [facility] ([address] [place] [address] VIR WBC (Bld) [#/Vol] 9.1 10*3/uL Normal 4-11 [facility] Comment on above: Performed By: #### V BG #### [facility] ([address] [place] [address] VIR LOWER RESP CULTURE SPUTUM CU LTURE INC GRAM STAINon 12-05-2024 LOWER RESP CULTURE SPUTUM CULTURE INC GRAM STAIN CULTURE RESULTS CULTURE CANCELLED. SPECIMEN DOES NOT MEET CRITERIA FOR CULTURING. PLEASE REORDER AND RESUBMIT. GRAM STAIN >25 Squamous Epithelial Cells/LPF with Mixed Bacterial Types Seen. Regarded as Saliva not Sputum Normal [facility] Comment on above: Performed By: #### L ACTS #### [facility] ([address] [place] [address] VIR PHOSPHORUSon 12-05-2024 Phosphate [Mass/Vol] 2.3 mg/dL Low 2.4-4.9 [facility] Comment on above: Performed By: #### V BG #### [facility] ([address] [place] [address] VIR B-TYPE NATRIURETIC PEPTIDEon 12-04-2024 Natriuretic peptide B (Bld) [Mass/Vol] 259 pg/mL High <=100 [facility] Comment on above: Performed By: #### B MP #### [facility] ([facility]) [address] [place] [address] VIR BEDSIDE GLUCOSEon 12-04-2024 Glucose [Mass/Vol] 125 mg/dL High [address] [place] [address] Comment on above: Performed By: #### V BG #### [facility] ([address] [place] [address] VIR Glucose [Mass/Vol] 165 mg/dL High [address] [place] [address] Comment on above: Performed By: #### V BG #### [facility] ([address] [place] [address] VIR Glucose [Mass/Vol] 196 mg/dL High [address] [place] [address] Comment on above: Performed By: #### B MP #### [facility] ([facility]) [address] [place] [address] VIR Glucose [Mass/Vol] 167 mg/dL High [address] Comment on above: Performed By: #### B MP #### [facility] ([facility]) [address] [place] [address] VIR BLOOD GAS, VENOUSon 12-05-19 25 BASE,EXCESS 7.0 mmol/L High 0.0-2.0 [facility] Comment on above: Performed By: #### B MP #### [facility] ([facility]) [address] [place] [address] VIR HCO3 (Bld) [Moles/Vol] 36.1 mmol/L High 20.0-24.0 [facility] Comment on above: Performed By: #### B MP #### [facility] ([facility]) [address] [place] [address] VIR INSP. O2 CONC. 50 % Normal [facility] Comment on above: Performed By: #### B MP #### [facility] ([facility]) [address] [place] [address] VIR Oxygen saturation in Blood 38.0 % Normal [facility] Comment on above: Performed By: #### B MP #### [facility] ([facility]) [address] [place] [address] VIR PCO2 VENOUS 80.0 mmHg High 35.0-50.0 [facility] Comment on above: Performed By: #### B MP #### [facility] ([facility]) [address] [place] [address] VIR PH VENOUS 7.263 Low 7.320-7.42 0 [facility] Comment on above: Performed By: #### B MP #### [facility] ([facility]) [address] [place] [address] VIR PO2 VENOUS 27 mmHg Low 30-50 [facility] Comment on above: Performed By: #### B MP #### [facility] ([facility]) [address] [place] [address] VIR POC RAVINDRA'S TEST N/A Normal [facility] Comment on above: Performed By: #### B MP #### [facility] ([facility]) [address] [place] [address] VIR SAMPLE SITE N/A [facility] Comment on above: Performed By: #### B MP #### [facility] ([facility]) [address] [place] [address] VIR SAMPLE TYPE VENOUS Normal [facility] Comment on above: Performed By: #### B MP #### [facility] ([facility]) [address] [place] [address] VIR SOURCE OF OXYGEN NC Normal [facility] Comment on above: Performed By: #### B MP #### [facility] ([facility]) [address] [place] [address] VIR BLOOD GAS, VENOUS VBG BLOOD GAS, VENOU S Cancelled Normal [facility] BASE,EXCESS 6.0 mmol/L High 0.0-2.0 [facility] Comment on above: Performed By: #### V BG ####[facility] ([address] [place] [address] VIR HCO3 (Bld) [Moles/Vol] 38.1 mmol/L High 20.0-24.0 [facility] Comment on above: Performed By: #### V BG ####[facility] ([address] [address] VIR INSP. O2 CONC. 40 % Normal [facility] Comment on above: Performed By: #### V BG ####[facility] ([address] [address] VIR Oxygen saturation in Blood 38.0 % Normal [facility] Comment on above: Performed By: #### V BG ####[facility] ([address] [place] [address] VIR PCO2 VENOUS 100.3 mmHg High 35.0-50.0 [facility] Comment on above: Performed By: #### V BG ####[facility] ([address] [place] [address] VIR PH VENOUS 7.187 Low 7.320-7.42 0 [facility] Comment on above: Performed By: #### V BG ####[facility] ([address] [place] [address] VIR PO2 VENOUS 29 mmHg Low 30-50 [facility] Comment on above: Performed By: #### V BG ####[facility] ([address] [place] [address] VIR POC RAVINDRA'S TEST N/A Normal [facility] Comment on above: Performed By: #### V BG ####[facility] ([address] [place] [address] VIR SAMPLE SITE N/A Normal [facility] Comment on above: Performed By: #### V BG ####[facility] ([address] [place] [address] VIR SAMPLE TYPE VENOUS Normal [facility] Comment on above: Performed By: #### V BG ####[facility] ([address] [place] [address] VIR SOURCE OF OXYGEN NPPV Normal [facility] Comment on above: Performed By: #### V BG ####[facility] ([address] [place] [address] VIR BLOOD GAS, VENOUS VBG BLOOD GAS, VENOU S Cancelled Normal [facility] CBC WITH AUTO DIFFERENTIALon 12-04-2024 Basophilic stippling LM Ql (Bld) 1+ Normal [facility] Comment on above: Result Comment: This is an appended report. These results have been appended to a previously preliminary verified report. Performed By: #### B MP #### [facility] ([facility]) [address] [place] [address] VIR BASOPHILS ABSOLUTE COUNT (10*3/UL) BY AUTOMATED COUNT 0.0 10*3/uL Normal 0.0-0.2 [facility] Comment on above: Result Comment: This is an appended report. These results have been appended to a previously preliminary verified report. Performed By: #### B MP #### [facility] ([facility]) [address] [place] [address] VIR BASOPHILS RELATIVE PERCENT BY AUTOMATED COUNT 0.2 % Normal [facility] Comment on above: Result Comment: This is an appended report. These results have been appended to a previously preliminary verified report. Performed By: #### B MP #### [facility] ([facility]) [address] [place] [address] VIR CELLAVISION DIFFERENTIAL TYPE AUTOMATED DIFFERENTIAL Normal [facility] Comment on above: Result Comment: This is an appended report. These results have been appended to a previously preliminary verified report. Performed By: #### B MP #### [facility] ([facility]) [address] [place] [address] VIR CELLAVISION ELLIPTOCYTES IN BLOOD BY LIGHT MICROSCOPY 1+ Normal [facility] Comment on above: Result Comment: This is an appended report. These results have been appended to a previously preliminary verified report. Performed By: #### B MP #### [facility] ([facility]) [address] [place] [address] VIR CELLAVISION POLYCHROMASIA IN BLOOD BY LIGHT MICROSCOPY 1+ Normal [facility] Comment on above: Result Comment: This is an appended report. These results have been appended to a previously preliminary verified report. Performed By: #### B MP #### [facility] ([facility]) [address] [place] [address] VIR CELLAVISION STOMATOCYTES IN BLOOD BY LIGHT MICROSCOPY 1+ Normal [facility] Comment on above: Result Comment: This is an appended report. These results have been appended to a previously preliminary verified report. Performed By: #### B MP #### [facility] ([facility]) [address] [place] [address] VIR Eosinophils (Bld) [#/Vol] 0.0 10*3/uL Normal 0.0-0.4 [facility] Comment on above: Result Comment: This is an appended report. These results have been appended to a previously preliminary verified report. Performed By: #### B MP #### [facility] ([facility]) [address] [place] [address] VIR EOSINOPHILS RELATIVE PERCENT BY AUTOMATED COUNT 0.0 % Normal [facility] Comment on above: Result Comment: This is an appended report. These results have been appended to a previously preliminary verified report. Performed By: #### B MP #### [facility] ([facility]) [address] [place] [address] VIR Erythrocyte distribution width (RBC) [Ratio] 20.2 % High 11.5-15 [facility] Comment on above: Performed By: #### B MP #### [facility] ([facility]) [address] [facility] [address] [place] [address] VIR Hematocrit (Bld) [Volume fraction] 34.4 % Low 35-47 [facility] Comment on above: Performed By: #### B MP #### [facility] ([facility]) [address] [place] [address] VIR Hemoglobin (Bld) [Mass/Vol] 9.8 g/dL Low 11.7-15.5 [facility] Comment on above: Performed By: #### B MP #### [facility] ([facility]) [address] [place] [address] VIR LYMPHOCYTES ABSOLUTE COUNT (10*3/UL) BY AUTOMATED COUNT 0.5 10*3/uL Low 1.0-3.5 [facility] Comment on above: Result Comment: This is an appended report. These results have been appended to a previously preliminary verified report. Performed By: #### B MP #### [facility] ([facility]) [address] [place] [address] VIR LYMPHOCYTES RELATIVE PERCENT BY AUTOMATED COUNT 3.7 % Normal [facility] Comment on above: Result Comment: This is an appended report. These results have been appended to a previously preliminary verified report. Performed By: #### B MP #### [facility] ([facility]) [address] [place] [address] VIR MCH (RBC) [Entitic mass] 19.1 pg Low 27-34 [facility] Comment on above: Performed By: #### B MP #### [facility] ([facility]) [address] [place] [address] VIR MCHC (RBC) [Mass/Vol] 28.5 g/dL Low 32-36 [facility] Comment on above: Performed By: #### B MP #### [facility] ([facility]) [address] [place] [address] VIR MCV (RBC) [Entitic vol] 67 fL Low 80-100 [facility] Comment on above: Performed By: #### B MP #### [facility] ([facility]) [address] [place] [address] VIR MONOCYTES ABSOLUTE COUNT (10*3/UL) BY AUTOMATED COUNT 0.9 10*3/uL Normal 0.0-0.9 [facility] Comment on above: Result Comment: This is an appended report. These results have been appended to a previously preliminary verified report. Performed By: #### B MP #### [facility] ([facility]) [address] [place] [address] VIR MONOCYTES RELATIVE PERCENT BY AUTOMATED COUNT 6.7 % Normal [facility] Comment on above: Result Comment: This is an appended report. These results have been appended to a previously preliminary verified report. Performed By: #### B MP #### [facility] ([facility]) [address] [place] [address] VIR NEUTROPHILS ABSOLUTE COUNT BY AUTOMATED COUNT 12.0 10*3/uL High 1.5-6.6 [facility] Comment on above: Result Comment: This is an appended report. These results have been appended to a previously preliminary verified report. Performed By: #### B MP #### [facility] ([facility]) [address] [place] [address] VIR NEUTROPHILS RELATIVE PERCENT BY AUTOMATED COUNT 89.4 % Normal [facility] Comment on above: Result Comment: This is an appended report. These results have been appended to a previously preliminary verified report. Performed By: #### B MP #### [facility] ([facility]) [address] [place] [address] VIR Platelet mean volume (Bld) [Entitic vol] 6.9 fL Low 7-12 [facility] Comment on above: Performed By: #### B MP #### [facility] ([facility]) [address] [facility] [address] [place] [address] VIR Platelets (Bld) [#/Vol] 354 10*3/uL Normal 150-450 [facility] Comment on above: Performed By: #### B MP #### [facility] ([facility]) [address] [place] [address] VIR RBC COUNT 5.13 X10E12/L Normal 3.8-5.2 [facility] Comment on above: Performed By: #### B MP #### [facility] ([facility]) [address] [place] [address] VIR WBC (Bld) [#/Vol] 13.5 10*3/uL High 4-11 [facility] Comment on above: Performed By: #### B MP #### [facility] ([facility]) [address] [place] [address] VIR COMPREHENSIVE METABOLIC PANE Meek 12-04-2024 Albumin [Mass/Vol] 3.7 g/dL Normal 3.2-5.3 [facility] Comment on above: Performed By: #### C MP ####[facility] ([facility])[address] [place] [address] VIR ALP [Catalytic activity/Vol] 138 U/L High 39-130 [facility] Comment on above: Performed By: #### C MP ####[facility] ([facility] [place] [address] VIR ALT [Catalytic activity/Vol] 36 U/L High <=31 [facility] Comment on above: Performed By: #### C MP ####[facility] ([place] [address] [place] [address] VIR Anion gap [Moles/Vol] 9 mmol/L Normal 5-15 [facility] Comment on above: Performed By: #### C MP ####[facility] ([place] [address] [place] [address] VIR AST [Catalytic activity/Vol] 38 U/L Normal <=41 [facility] Comment on above: Performed By: #### C MP ####[facility] ([place] [address] [place] [address] VIR Bilirubin [Mass/Vol] 0.3 mg/dL Normal 0.3-1.2 [facility] Comment on above: Performed By: #### C MP ####[facility] ([place] [address] [place] [address] VIR Calcium [Mass/Vol] 9.0 mg/dL Normal 8.5-10.5 [facility] Comment on above: Performed By: #### C MP ####[facility] ([place] [address] [place] [address] VIR Chloride [Moles/Vol] 96 mmol/L Low 98-109 [facility] Comment on above: Performed By: #### C MP ####[facility] ([place] [address] [place] [address] VIR CO2 [Moles/Vol] 36 mmol/L High 22-32 [facility] Comment on above: Performed By: #### C MP ####[facility] ([place] [address] [place] [address] VIR Creatinine [Mass/Vol] 1.45 mg/dL High 0.40-1.00 [facility] Comment on above: Result Comment: METH OD TRACEABLE TO IDMS STANDARD Performed By: #### C MP ####[facility] ([facility])[address] [place] [address] VIR GFR/1.73 sq M.predicted among non-blacks MDRD (S/P/Bld) [Vol rate/Area] 41 mL/min/{1.73_m2} Low >=60 [facility] Comment on above: Result Comment: eGFR not reported due to non-numeric value for Creatinine. Reported eGFR is based on the CKD-EPI 2020 equation that does not use a race coefficient. Performed By: #### C MP ####[facility] ([address] [place] [address] VIR Glucose [Mass/Vol] 133 mg/dL High 65-99 [facility] Comment on above: Performed By: #### C MP ####[facility] ([address] [place] [address] VIR Potassium [Moles/Vol] 4.2 mmol/L Normal 3.5-5.0 [facility] Comment on above: Performed By: #### C MP ####[facility] ([address] [place] [address] VIR Protein [Mass/Vol] 7.8 g/dL Normal 6.0-8.0 [facility] Comment on above: Performed By: #### C MP ####[facility] ([address] [place] [address] VIR Sodium [Moles/Vol] 141 mmol/L Normal 134-146 [facility] Comment on above: Performed By: #### C MP ####[facility] ([address] [place] [address] VIR Urea nitrogen [Mass/Vol] 21 mg/dL Normal 5-27 [facility] Comment on above: Performed By: #### C MP ####[facility] ([facility])[address] [place] [address] VIR LACTATE W/ REFLEXon 12-05-19 25 LACTATE W/REFLEX 1.0 mmol/L Normal 0.4-2.0 [facility] Comment on above: Order Comment: Resul t did not trigger repeat Lactate,re-order if needed. Performed By: #### L ACTS ####[facility] ([facility])[address] [address] [place] [address] VIR PHOSPHORUSon 12-04-2024 Phosphate [Mass/Vol] 6.1 mg/dL High 2.4-4.9 [facility] Comment on above: Performed By: #### B MP #### [facility] ([facility]) [address] [place] [address] VIR PROCALCITONINon 12-04-2024 PROCALCITONIN 0.13 ng/mL High <0.05 [facility] Comment on above: Order Comment: <0.50 ng/mL - Low risk of severe sepsis and/or septic shock.<2.00 ng/mL - Recommend retesting within 6-24 hours.>2.00 ng/mL - High risk of sepsis and/or septic shock. Performed By: #### B MP #### [facility] ([facility]) [address] [place] [address] VIR TROP I, HIGH SENSITIVITY 1 H OURon 12-04-2024 TROPONIN I, HIGH SENSITIVITY 17 ng/L High <16 [facility] Comment on above: Order Comment: Parker tions of hs-Troponin may be due to causesother than myocardial ischemia.Recommend serial hs-Troponin testing be performed.For the initial evaluation and management of chestpain patients, refer to the algorithms linked below.Emergency Patient:[email or web address] Performed By: #### B MP #### [facility] ([facility]) [address] [place] [address] VIR TROPONIN I, HIGH SENSITIVITY 0 HOURon 12-04-2024 TROPONIN I, HIGH SENSITIVITY 17 ng/L High <16 [facility] Comment on above: Performed By: #### B MP #### [facility] ([facility]) [address] [place] [address] VIR XR CHEST 1 VWon 12-04-2024 XR CHEST 1 VW XR CHEST 1 VW Single view chest History:SOB Difficulty breathing, shortness of breath Comparison: 12/03/2024 Findings: Single portable view of the chest. Right lower lung atelectasis versus pneumonia, stable. Stable cardiac mediastinal silhouette. Prior median sternotomy. Impression: No significant interval change. Finalized by Victor Hugo Kim MD on 12/04/2024 7:13 AM Normal [facility] B-TYPE NATRIURETIC PEPTIDEon 12-03-2024 Natriuretic peptide B (Bld) [Mass/Vol] 196 pg/mL High <=100 [facility] Comment on above: Performed By: #### B TOP FLAVOR ATTENDANT ####[facility] ([address] [place] [address] VIR BLOOD CULTUREon 12-03-2024 Bacteria identified Cx Nom (Bld) CULTURE RESULTS NO GROWTH 5 DAYS Normal [facility] Comment on above: Order Comment: *SIRS Criteria: (must display 2 without other explanation)-Temperature < 36 or >38-Pulse >90-Resp rate >20-WBC less than 4K or greater than 12KRepeat blood cultures not needed:-To document that a blood culture is a contaminant when 1 of 2 bottles is positive for a common contaminant (already listed in Epic with the culture result)-To document clearance of gram negative bacteremia in patients with suspected urinary source who are improving Performed By: #### B C ####[facility] ([facility])[address] [facility] [address], [place] [address] VIR Bacteria identified Cx Nom (Bld) CULTURE RESULTS NO GROWTH 5 DAYS Normal [facility] Comment on above: Order Comment: *SIRS Criteria: (must display 2 without other explanation)-Temperature < 36 or >38-Pulse >90-Resp rate >20-WBC less than 4K or greater than 12KRepeat blood cultures not needed:-To document that a blood culture is a contaminant when 1 of 2 bottles is positive for a common contaminant (already listed in Epic with the culture result)-To document clearance of gram negative bacteremia in patients with suspected urinary source who are improving Performed By: #### B C ####[facility] ([facility])[address] [facility] [address], [place] [address] VIR BLOOD GAS, VENOUSon 12-04-19 25 BASE,EXCESS 6.0 mmol/L High 0.0-2.0 [facility] Comment on above: Performed By: #### V BG #### [facility] ([facility]) [address] [facility] [place] [address] VIR HCO3 (Bld) [Moles/Vol] 33.9 mmol/L High 20.0-24.0 [facility] Comment on above: Performed By: #### V BG #### [facility] ([facility]) [address] [place] [address] [place] [address] VIR Oxygen saturation in Blood 50.0 % Normal [facility] Comment on above: Performed By: #### V BG #### [facility] ([facility]) [address] [facility] [place] [address] VIR PCO2 VENOUS 67.5 mmHg High 35.0-50.0 [facility] Comment on above: Performed By: #### V BG #### [facility] ([facility]) [address] [place] [address] [place] [address] VIR PH VENOUS 7.309 Low 7.320-7.42 0 [facility] Comment on above: Performed By: #### V BG #### [facility] ([facility]) [address] [facility] [place] [address] VIR PO2 VENOUS 31 mmHg Normal 30-50 [facility] Comment on above: Performed By: #### V BG #### [facility] ([facility]) [address] [facility] [place] [address] VIR POC RAVINDRA'S TEST N/A Normal [facility] Comment on above: Performed By: #### V BG #### [facility] ([facility]) [address] [place] [address] [place] [address] VIR SAMPLE SITE N/A Normal [facility] Comment on above: Performed By: #### V BG #### [facility] ([address] [place] [address] VIR SAMPLE TYPE VENOUS Normal [facility] Comment on above: Performed By: #### V BG #### [facility] ([address] [place] [address] VIR SOURCE OF OXYGEN NC Normal [facility] Comment on above: Performed By: #### V BG #### [facility] ([address] [place] [address] VIR BLOOD GAS, VENOUS VBG BLOOD GAS, VENOU S Cancelled Normal [facility] CBC WITH AUTO DIFFERENTIALon 12-03-2024 BASOPHILS ABSOLUTE COUNT (10*3/UL) BY AUTOMATED COUNT 0.1 10*3/uL Normal 0.0-0.2 [facility] Comment on above: Result Comment: This is an appended report. These results have been appended to a previously preliminary verified report. Performed By: #### C BCA #### [facility] ([address] [place] [address] VIR BASOPHILS RELATIVE PERCENT BY AUTOMATED COUNT 0.8 % Normal [facility] Comment on above: Result Comment: This is an appended report. These results have been appended to a previously preliminary verified report. Performed By: #### C BCA #### [facility] ([facility]) [address] [place] [address]. [place] [address] VIR CELLAVISION ANISOCYTOSIS IN BLOOD BY LIGHT MICROSCOPY 2+ Normal [facility] Comment on above: Result Comment: This is an appended report. These results have been appended to a previously preliminary verified report. Performed By: #### C BCA #### [facility] ([facility]) [address] [place] [address]. [place] [address] VIR CELLAVISION DIFFERENTIAL TYPE AUTOMATED DIFFERENTIAL Normal [facility] Comment on above: Result Comment: This is an appended report. These results have been appended to a previously preliminary verified report. Performed By: #### C BCA #### [facility] ([address] [address] VIR CELLAVISION MICROCYTES IN BLOOD BY LIGHT MICROSCOPY 2+ Normal [facility] Comment on above: Result Comment: This is an appended report. These results have been appended to a previously preliminary verified report. Performed By: #### C BCA #### [facility] ([address] [address] VIR CELLAVISION RBC MORPHOLOGY Reviewed Normal [facility] Comment on above: Result Comment: This is an appended report. These results have been appended to a previously preliminary verified report. Performed By: #### C BCA #### [facility] ([address] [place] [address] VIR Eosinophils (Bld) [#/Vol] 0.1 10*3/uL Normal 0.0-0.4 [facility] Comment on above: Result Comment: This is an appended report. These results have been appended to a previously preliminary verified report. Performed By: #### C BCA #### [facility] ([address] [address] VIR EOSINOPHILS RELATIVE PERCENT BY AUTOMATED COUNT 1.3 % Normal [facility] Comment on above: Result Comment: This is an appended report. These results have been appended to a previously preliminary verified report. Performed By: #### C BCA #### [facility] ([address] [address] VIR Erythrocyte distribution width (RBC) [Ratio] 19.7 % High 11.5-15 [facility] Comment on above: Performed By: #### C BCA #### [facility] ([address] [address] VIR Hematocrit (Bld) [Volume fraction] 31.1 % Low 35-47 [facility] Comment on above: Performed By: #### C BCA #### [facility] ([address] [address] VIR Hemoglobin (Bld) [Mass/Vol] 9.3 g/dL Low 11.7-15.5 [facility] Comment on above: Performed By: #### C BCA #### [facility] ([address] [address] VIR LYMPHOCYTES ABSOLUTE COUNT (10*3/UL) BY AUTOMATED COUNT 1.3 10*3/uL Normal 1.0-3.5 [facility] Comment on above: Result Comment: This is an appended report. These results have been appended to a previously preliminary verified report. Performed By: #### C BCA #### [facility] ([address] [address] VIR LYMPHOCYTES RELATIVE PERCENT BY AUTOMATED COUNT 11.2 % Normal [facility] Comment on above: Result Comment: This is an appended report. These results have been appended to a previously preliminary verified report. Performed By: #### C BCA #### [facility] ([address] [address] VIR MCH (RBC) [Entitic mass] 19.3 pg Low 27-34 [facility] Comment on above: Performed By: #### C BCA #### [facility] ([address] [address] VIR MCHC (RBC) [Mass/Vol] 29.7 g/dL Low 32-36 [facility] Comment on above: Performed By: #### C BCA #### [facility] ([address] [address] VIR MCV (RBC) [Entitic vol] 65 fL Low 80-100 [facility] Comment on above: Performed By: #### C BCA #### [facility] ([address] [address] VIR MONOCYTES ABSOLUTE COUNT (10*3/UL) BY AUTOMATED COUNT 0.7 10*3/uL Normal 0.0-0.9 [facility] Comment on above: Result Comment: This is an appended report. These results have been appended to a previously preliminary verified report. Performed By: #### C BCA #### [facility] ([address] [address] VIR MONOCYTES RELATIVE PERCENT BY AUTOMATED COUNT 5.9 % Normal [facility] Comment on above: Result Comment: This is an appended report. These results have been appended to a previously preliminary verified report. Performed By: #### C BCA #### [facility] ([address] [address] VIR NEUTROPHILS ABSOLUTE COUNT BY AUTOMATED COUNT 9.1 10*3/uL High 1.5-6.6 [facility] Comment on above: Result Comment: This is an appended report. These results have been appended to a previously preliminary verified report. Performed By: #### C BCA #### [facility] ([address] [address] VIR NEUTROPHILS RELATIVE PERCENT BY AUTOMATED COUNT 80.8 % Normal [facility] Comment on above: Result Comment: This is an appended report. These results have been appended to a previously preliminary verified report. Performed By: #### C BCA #### [facility] ([address] [place] [address] VIR Platelet mean volume (Bld) [Entitic vol] 7.3 fL Normal 7-12 [facility] Comment on above: Performed By: #### C BCA #### [facility] ([address] [place] [address] VIR Platelets (Bld) [#/Vol] 391 10*3/uL Normal 150-450 [facility] Comment on above: Performed By: #### C BCA #### [facility] ([address] [place] [address] VIR RBC COUNT 4.79 X10E12/L Normal 3.8-5.2 [facility] Comment on above: Performed By: #### C BCA #### [facility] ([address] [place] [address] VIR WBC (Bld) [#/Vol] 11.3 10*3/uL High 4-11 [facility] Comment on above: Performed By: #### C BCA #### [facility] ([address] [place] [address] VIR COMPREHENSIVE METABOLIC PANE Meek 12-03-2024 Albumin [Mass/Vol] 3.9 g/dL Normal 3.2-5.3 [facility] Comment on above: Performed By: #### C MP #### [facility] ([address] [place] [address] VIR ALP [Catalytic activity/Vol] 112 U/L Normal 39-130 [facility] Comment on above: Performed By: #### C MP #### [facility] ([address] [place] [address] VIR ALT [Catalytic activity/Vol] 24 U/L Normal <=31 [facility] Comment on above: Performed By: #### C MP #### [facility] ([address] [place] [address] VIR Anion gap [Moles/Vol] 5 mmol/L Normal 5-15 [facility] Comment on above: Performed By: #### C MP #### [facility] ([address] [place] [address] VIR AST [Catalytic activity/Vol] 24 U/L Normal <=41 [facility] Comment on above: Performed By: #### C MP #### [facility] ([address] [place] [address] VIR Bilirubin [Mass/Vol] 0.3 mg/dL Normal 0.3-1.2 [facility] Comment on above: Performed By: #### C MP #### [facility] ([address] [place] [address] VIR Calcium [Mass/Vol] 8.4 mg/dL Low 8.5-10.5 [facility] Comment on above: Performed By: #### C MP #### [facility] ([address] [place] [address] VIR Chloride [Moles/Vol] 101 mmol/L Normal 98-109 [facility] Comment on above: Performed By: #### C MP #### [facility] ([address] [place] [address] VIR CO2 [Moles/Vol] 34 mmol/L High 22-32 [facility] Comment on above: Performed By: #### C MP #### [facility] ([address] [place] [address] VIR Creatinine [Mass/Vol] 1.39 mg/dL High 0.40-1.00 [facility] Comment on above: Result Comment: METH OD TRACEABLE TO IDMS STANDARD Performed By: #### C MP #### [facility] ([address] [address] VIR GFR/1.73 sq M.predicted among non-blacks MDRD (S/P/Bld) [Vol rate/Area] 43 mL/min/{1.73_m2} Low >=60 [facility] Comment on above: Result Comment: eGFR not reported due to non-numeric value for Creatinine. Reported eGFR is based on the CKD-EPI 1 equation that does not use a race coefficient. Performed By: #### C MP #### [facility] ([address] [place] [address] VIR Glucose [Mass/Vol] 130 mg/dL High 65-99 [facility] Comment on above: Performed By: #### C MP #### [facility] ([address] [place] [address] VIR Potassium [Moles/Vol] 3.5 mmol/L Normal 3.5-5.0 [facility] Comment on above: Performed By: #### C MP #### [facility] ([address] [place] [address] VIR Protein [Mass/Vol] 7.7 g/dL Normal 6.0-8.0 [facility] Comment on above: Performed By: #### C MP #### [facility] ([address] [address] VIR Sodium [Moles/Vol] 140 mmol/L Normal 134-146 [facility] Comment on above: Performed By: #### C MP #### [facility] ([address] [place] [address] VIR Urea nitrogen [Mass/Vol] 16 mg/dL Normal 5-27 [facility] Comment on above: Performed By: #### C MP #### [facility] ([address] [address] CTA CHESTon 12-03-[address] CTA CHEST Clinical history: Hypoxia Technique: CT angiography of [...] Kai Finn MD on 12/03/2024 4:15 AM Normal [facility] LACTATE W/ REFLEXon 12-04-19 25 LACTATE W/REFLEX 0.8 mmol/L Normal 0.4-2.0 [facility] Comment on above: Order Comment: Resul t did not trigger repeat Lactate, re-order if needed. Performed By: #### L ACTS #### [facility] ([address] [address] VIR TROP I, HIGH SENSITIVITY 1 H OURon 12-03-2024 TROPONIN I, HIGH SENSITIVITY 7 ng/L Normal <16 [facility] Comment on above: Performed By: #### T NIHS1 ####[facility] ([address] [address] VIR TROPONIN I, HIGH SENSITIVITY 0 HOURon 12-03-2024 TROPONIN I, HIGH SENSITIVITY 8 ng/L Normal <16 [facility] Comment on above: Performed By: #### T NIHS0 #### [facility] ([facility]) [address] [facility] [place] [address] VIR XR CHEST 1 VWon 12-03-2024 XR CHEST 1 VW XR CHEST 1 VW XR CHEST 1 VW HISTORY: Shortness of breath COMPARISON: Chest radiograph 12/17/2023, 10/20/2023, and 09/24/2023. FINDINGS: Evaluation compromised by patient positioning and rotation. The trachea is midline. The cardiomediastinal silhouette is not enlarged. No pneumothorax or pleural effusion. Interval development of patchy right basilar airspace opacities. Well-circumscribed, rounded density in the left lower lung field. Median sternotomy wires. IMPRESSION: * Patchy right basilar airspace opacities, compatible with pneumonia. * The well-circumscribed rounded density left lower lung field could represent calcified granuloma, calcified fat necrosis in the breast, or overlying object external to patient. Clinical correlation recommended. Approved by Resident Shashi Garsia MD on 12/03/2024 3:21 AM I, Kai Finn MD have personally reviewed the image(s) and agree with and/or edited the report Finalized by Kai Finn MD on 12/03/2024 3:36 AM Normal [facility] BASIC METABOLIC PANELon 08-0 -2024 Anion gap [Moles/Vol] 8 mmol/L Normal 5-15 [facility] Comment on above: Performed By: #### B MP #### [facility] ([facility]) [address] [place] [address] VIR Calcium [Mass/Vol] 9.0 mg/dL Normal 8.5-10.5 [facility] Comment on above: Performed By: #### B MP #### [facility] ([facility]) [address] [place] [address] VIR Chloride [Moles/Vol] 103 mmol/L Normal 98-109 [facility] Comment on above: Performed By: #### B MP #### [facility] ([facility]) [address] [place] [address] VIR CO2 [Moles/Vol] 29 mmol/L Normal 22-32 [facility] Comment on above: Performed By: #### B MP #### [facility] ([facility]) [address] [place] [address] VIR Creatinine [Mass/Vol] 1.15 mg/dL High 0.40-1.00 [facility] Comment on above: Result Comment: METH OD TRACEABLE TO IDMS STANDARD Performed By: #### B MP #### [facility] ([facility]) [address] [place] [address] VIR GFR/1.73 sq M.predicted among non-blacks MDRD (S/P/Bld) [Vol rate/Area] 54 mL/min/{1.73_m2} Low >=60 [facility] Comment on above: Result Comment: Repo rted eGFR is based on the CKD-EPI 2020 equation that does not use a race coefficient. Performed By: #### B MP #### [facility] ([facility]) [address] [place] [address] VIR Glucose [Mass/Vol] 83 mg/dL Normal 65-99 [facility] Comment on above: Performed By: #### B MP #### [facility] ([facility]) [address] [place] [address] VIR Potassium [Moles/Vol] 4.1 mmol/L Normal 3.5-5.0 [facility] Comment on above: Performed By: #### B MP #### [facility] ([facility]) [address] [place] [address] VIR Sodium [Moles/Vol] 140 mmol/L Normal 134-146 [facility] Comment on above: Performed By: #### B MP #### [facility] ([facility]) [address] [place] [address] VIR Urea nitrogen [Mass/Vol] 15 mg/dL Normal 5-27 [facility] Comment on above: Performed By: #### B MP #### [facility] ([facility]) [address] [place] [address] VIR XR KNEE RT 3 VWSon XR KNEE RT 3 VWS XR KNEE RT 3 VWS History: Patellar tendinitis Exam/Technique: Frontal lateral and oblique views of the right knee were obtained. Comparison: 03/04/2017 Findings: There is no evidence for an acute osseous abnormality. Mild medial joint space narrowing. No other significant degenerative changes are seen. No joint effusions are identified. IMPRESSION: Mild medial joint space narrowing. Otherwise normal right knee. Finalized by Kai Finn MD on 11/29/2024 2:28 PM Normal [facility] CBC WITH AUTO DIFFERENTIALon 10-27-2024 Band form neutrophils/100 WBC (Bld) 4 % Normal [facility] Comment on above: Result Comment: This is an appended report. These results have been appended to a previously preliminary verified report. Performed By: #### C BCA #### [facility] ([facility]) [address] [place] [address] VIR CELLAVISION BASOPHILS ABSOLUTE COUNT (10*3/UL) BY MANUAL COUNT 0.1 10*3/uL Normal 0.0-0.2 [facility] Comment on above: Result Comment: This is an appended report. These results have been appended to a previously preliminary verified report. Performed By: #### C BCA #### [facility] ([facility]) [address] [place] [address] VIR CELLAVISION BASOPHILS RELATIVE PERCENT BY MANUAL COUNT 1 % Normal [facility] Comment on above: Result Comment: This is an appended report. These results have been appended to a previously preliminary verified report. Performed By: #### C BCA #### [facility] ([facility]) [address] [place] [address] VIR CELLAVISION DIFFERENTIAL TYPE CELLAVISION DIFFERENTIAL Normal [facility] Comment on above: Result Comment: This is an appended report. These results have been appended to a previously preliminary verified report. Performed By: #### C BCA #### [facility] ([facility]) [address] [place] [address] VIR CELLAVISION EOSINOPHILS ABSOLUTE COUNT (10*3/UL) BY MANUAL COUNT 0.2 10*3/uL Normal 0.0-0.4 [facility] Comment on above: Result Comment: This is an appended report. These results have been appended to a previously preliminary verified report. Performed By: #### C BCA #### [facility] ([facility]) [address] [place] [address] VIR CELLAVISION EOSINOPHILS PERCENT BY MANUAL COUNT 2 % Normal [facility] Comment on above: Result Comment: This is an appended report. These results have been appended to a previously preliminary verified report. Performed By: #### C BCA #### [facility] ([facility]) [address] [place] [address] VIR CELLAVISION LYMPHOCYTES ABSOLUTE COUNT (10*3/UL) BY MANUAL COUNT 1.9 10*3/uL Normal 1.0-3.5 [facility] Comment on above: Result Comment: This is an appended report. These results have been appended to a previously preliminary verified report. Performed By: #### C BCA #### [facility] ([facility]) [address] [place] [address] VIR CELLAVISION LYMPHOCYTES RELATIVE PERCENT BY MANUAL COUNT 21 % Normal [facility] Comment on above: Result Comment: This is an appended report. These results have been appended to a previously preliminary verified report. Performed By: #### C BCA #### [facility] ([facility]) [address] [place] [address] VIR CELLAVISION MONOCYTES ABSOLUTE COUNT (10*3/UL) IN BLOOD BY MANUAL COUNT 0.2 10*3/uL Normal 0.0-0.9 [facility] Comment on above: Result Comment: This is an appended report. These results have been appended to a previously preliminary verified report. Performed By: #### C BCA #### [facility] ([facility]) [address] [place] [address] VIR CELLAVISION MONOCYTES RELATIVE PERCENT BY MANUAL COUNT 2 % Normal [facility] Comment on above: Result Comment: This is an appended report. These results have been appended to a previously preliminary verified report. Performed By: #### C BCA #### [facility] ([facility]) [address] [place] [address] VIR CELLAVISION NEUTROPHILS ABSOLUTE COUNT BY MANUAL COUNT 6.8 10*3/uL High 1.5-6.6 [facility] Comment on above: Result Comment: This is an appended report. These results have been appended to a previously preliminary verified report. Performed By: #### C BCA #### [facility] ([facility]) [address] [place] [address] VIR CELLAVISION NEUTROPHILS RELATIVE PERCENT BY MANUAL COUNT 70 % Normal [facility] Comment on above: Result Comment: This is an appended report. These results have been appended to a previously preliminary verified report. Performed By: #### C BCA #### [facility] ([facility]) [address] [place] [address] VIR CELLAVISION RBC MORPHOLOGY Reviewed Normal [facility] Comment on above: Result Comment: This is an appended report. These results have been appended to a previously preliminary verified report. Performed By: #### C BCA #### [facility] ([facility]) [address] [place] [address] VIR Erythrocyte distribution width (RBC) [Ratio] 20.4 % High 11.5-15 [facility] Comment on above: Performed By: #### C BCA #### [facility] ([facility]) [address] [place] [address] VIR Hematocrit (Bld) [Volume fraction] 32.9 % Low 35-47 [facility] Comment on above: Performed By: #### C BCA #### [facility] ([facility]) [address] [place] [address] VIR Hemoglobin (Bld) [Mass/Vol] 10.0 g/dL Low 11.7-15.5 [facility] Comment on above: Performed By: #### C BCA #### [facility] ([facility]) [address] [place] [address] VIR MCH (RBC) [Entitic mass] 21.2 pg Low 27-34 [facility] Comment on above: Performed By: #### C BCA #### [facility] ([facility]) [address] [place] [address] VIR MCHC (RBC) [Mass/Vol] 30.4 g/dL Low 32-36 [facility] Comment on above: Performed By: #### C BCA #### [facility] ([facility]) [address] [place] [address] VIR MCV (RBC) [Entitic vol] 70 fL Low 80-100 [facility] Comment on above: Performed By: #### C BCA #### [facility] ([facility]) [address] [place] [address] VIR Platelet mean volume (Bld) [Entitic vol] 8.2 fL Normal 7-12 [facility] Comment on above: Performed By: #### C BCA #### [facility] ([facility]) [address] [place] [address] VIR Platelets (Bld) [#/Vol] 334 10*3/uL Normal 150-450 [facility] Comment on above: Performed By: #### C BCA #### [facility] ([facility]) [address] [place] [address] VIR RBC COUNT 4.73 X10E12/L Normal 3.8-5.2 [facility] Comment on above: Performed By: #### C BCA #### [facility] ([facility]) [address] [place] [address] VIR WBC (Bld) [#/Vol] 9.1 10*3/uL Normal 4-11 [facility] Comment on above: Performed By: #### C BCA #### [facility] [address] [place] [address] VIR CBC auto differentialon 07-0 Band form neutrophils/100 WBC (Bld) 4 % [facility] Comment on above: This is an appended report. These results have been appended to a previously preliminary verified report. Basophils (Bld) [#/Vol] 0.1 10*3/uL 0.0 - 0.2 10*3/uL [facility] Comment on above: This is an appended report. These results have been appended to a previously preliminary verified report. Basophils/100 WBC (Bld) 1 % [facility] Comment on above: This is an appended report. These results have been appended to a previously preliminary verified report. Differential cell count method Nom (Bld) CELLAVISION DIFFERENTIAL [facility] Comment on above: This is an appended report. These results have been appended to a previously preliminary verified report. Eosinophils (Bld) [#/Vol] 0.2 10*3/uL 0.0 - 0.4 10*3/uL [facility] Comment on above: This is an appended report. These results have been appended to a previously preliminary verified report. Eosinophils/100 WBC (Bld) 2 % [facility] Comment on above: This is an appended report. These results have been appended to a previously preliminary verified report. Erythrocyte distribution width (RBC) [Ratio] 20.4 % High 11.5 - 15 % [facility] Hematocrit (Bld) [Volume fraction] 32.9 % Low 35 - 47 % [facility] Hemoglobin (Bld) [Mass/Vol] 10 g/dL Low 11.7 - 15.5 g/dL [facility] Interpretation and review of laboratory results Abnormal [facility] Lymphocytes (Bld) [#/Vol] 1.9 10*3/uL 1.0 - 3.5 10*3/uL [facility] Comment on above: This is an appended report. These results have been appended to a previously preliminary verified report. MCH (RBC) [Entitic mass] 21.2 pg Low 27 - 34 pg [facility] MCHC (RBC) [Mass/Vol] 30.4 g/dL Low 32 - 36 g/dL [facility] MCV (RBC) [Entitic vol] 70 fL Low 80 - 100 fL [facility] Monocytes (Bld) [#/Vol] 0.2 10*3/uL 0.0 - 0.9 10*3/uL [facility] Comment on above: This is an appended report. These results have been appended to a previously preliminary verified report. Monocytes/100 WBC (Bld) 2 % [facility] Comment on above: This is an appended report. These results have been appended to a previously preliminary verified report. Neutrophils (Bld) [#/Vol] 6.8 10*3/uL High 1.5 - 6.6 10*3/uL [facility] Comment on above: This is an appended report. These results have been appended to a previously preliminary verified report. Neutrophils/100 WBC (Bld) 70 % [facility] Comment on above: This is an appended report. These results have been appended to a previously preliminary verified report. Platelet mean volume (Bld) [Entitic vol] 8.2 fL 7 - 12 fL [facility] Platelets (Bld) [#/Vol] 334 10*3/uL [facility] RBC (Bld) [#/Vol] 4.73 10*6/uL [facility] RBC (Bld) [#/Vol] Reviewed [facility] Comment on above: This is an appended report. These results have been appended to a previously preliminary verified report. Variant lymphocytes/100 WBC (Bld) 21 % [facility] Comment on above: This is an appended report. These results have been appended to a previously preliminary verified report. WBC LM Ql (Sput) 9.1 [facility] COMPREHENSIVE METABOLIC PANE Meek 10-27-2024 Albumin [Mass/Vol] 4.4 g/dL Normal 3.2-5.3 [facility] Comment on above: Performed By: #### C MP #### [facility] ([facility]) [address] [place] [address] VIR ALP [Catalytic activity/Vol] 100 U/L Normal 39-130 [facility] Comment on above: Performed By: #### C MP #### [facility] ([facility]) [address] [place] [address] VIR ALT [Catalytic activity/Vol] 33 U/L High <=31 [facility] Comment on above: Performed By: #### C MP #### [facility] ([facility]) [address] [place] [address] VIR Anion gap [Moles/Vol] 7 mmol/L Normal 5-15 [facility] Comment on above: Performed By: #### C MP #### [facility] ([facility]) [address] [place] [address] VIR AST [Catalytic activity/Vol] 22 U/L Normal <=41 [facility] Comment on above: Performed By: #### C MP #### [facility] ([facility]) [address] [place] [address] VIR Bilirubin [Mass/Vol] 0.3 mg/dL Normal 0.3-1.2 [facility] Comment on above: Performed By: #### C MP #### [facility] ([facility]) [address] [place] [address] VIR Calcium [Mass/Vol] 9.3 mg/dL Normal 8.5-10.5 [facility] Comment on above: Performed By: #### C MP #### [facility] ([facility]) [address] [place] [address] VIR Chloride [Moles/Vol] 102 mmol/L Normal 98-109 [facility] Comment on above: Performed By: #### C MP #### [facility] ([facility]) [address] [place] [address] VIR CO2 [Moles/Vol] 34 mmol/L High 22-32 [facility] Comment on above: Performed By: #### C MP #### [facility] ([facility]) [address] [place] [address] VIR Creatinine [Mass/Vol] 1.27 mg/dL High 0.40-1.00 [facility] Comment on above: Result Comment: METH OD TRACEABLE TO IDMS STANDARD Performed By: #### C MP #### [facility] ([facility]) [address] [place] [address] VIR GFR/1.73 sq M.predicted among non-blacks MDRD (S/P/Bld) [Vol rate/Area] 48 mL/min/{1.73_m2} Low >=60 [facility] Comment on above: Result Comment: Repo rted eGFR is based on the CKD-EPI 2020 equation that does not use a race coefficient. Performed By: #### C MP #### [facility] ([facility]) [address] [place] [address] VIR Glucose [Mass/Vol] 114 mg/dL High 65-99 [facility] Comment on above: Performed By: #### C MP #### [facility] ([facility]) [address] [place] [address] VIR Potassium [Moles/Vol] 4.4 mmol/L Normal 3.5-5.0 [facility] Comment on above: Performed By: #### C MP #### [facility] ([facility]) [address] [place] [address] VIR Protein [Mass/Vol] 7.6 g/dL Normal 6.0-8.0 [facility] Comment on above: Performed By: #### C MP #### [facility] ([facility]) [address] [place] [address] VIR Sodium [Moles/Vol] 143 mmol/L Normal 134-146 [facility] Comment on above: Performed By: #### C MP #### [facility] ([facility]) [address] [place] [address] VIR Urea nitrogen [Mass/Vol] 19 mg/dL Normal 5-27 [facility] Comment on above: Performed By: #### C #### [facility] ([facility]) [address] [place] [address] VIR Comprehensive metabolic pane meek 10-27-2024 Albumin [Mass/Vol] 4.4 g/dL 3.2 - 5.3 g/dL [facility] ALP [Catalytic activity/Vol] 100 U/L 39 - 130 U/L [facility] ALT No additional P-5'-P [Catalytic activity/Vol] 33 U/L High NINF - 31 U/L [facility] Anion gap [Moles/Vol] 7 mmol/L 5 - 15 mmol/L [facility] AST [Catalytic activity/Vol] 22 U/L NINF - 41 U/L [facility] Bilirubin [Mass/Vol] 0.3 mg/dL 0.3 - 1.2 mg/dL [facility] Calcium [Mass/Vol] 9.3 mg/dL 8.5 - 10. 5 mg/dL [facility] Chloride [Moles/Vol] 102 mmol/L 98 - 109 mmol/L [facility] CO2 [Moles/Vol] 34 mmol/L High 22 - 32 mmol/L [facility] Creatinine [Mass/Vol] 1.27 mg/dL High 0.40 - 1.00 mg/dL [facility] Comment on above: METHOD TRACEABLE TO IDMS STANDARD EGFR Non-Race Dependent 48 Low - PINF [facility] Comment on above: Reported eGFR is bas ed on the CKD-EPI 2020 equation that does not use a race coefficient. Glucose [Mass/Vol] 114 mg/dL High 65 - 99 mg/dL [facility] Interpretation and review of laboratory results Abnormal [facility] Potassium [Moles/Vol] 4.4 mmol/L 3.5 - 5.0 mmol/L [facility] Protein [Mass/Vol] 7.6 g/dL 6.0 - 8.0 g/dL [facility] Sodium [Moles/Vol] 143 mmol/L 134 - 146 mmol/L [facility] Urea nitrogen [Mass/Vol] 19 mg/dL 5 - 27 mg/dL [facility] HEMOGLOBIN A1Con 10-27-2024 Glucose [Mass/Vol] 134 mg/dL Normal [facility] Comment on above: Performed By: #### H A1C #### [facility] ([facility]) [address] [place] [address] VIR HbA1c (Bld) [Mass fraction] 6.3 % High 4.4-5.6 [facility] Comment on above: Result Comment: ADA Guidelines Result HgbA1c Normal : less than 5.7 % Prediabetes : 5.7 % to 6.4 % Diabetes : > 6.4 % Use with caution in patients with abnormal hemoglobin variants as the half-life of red blood cells and in vivo glycation rates are affected. Performed By: #### H A1C #### [facility] ([facility]) [address] [place] [address] VIR CBC AND AUTO DIFFon 07-08-19 25 ABSOLUTE BASOPHIL 0.1 X10E9/L Normal 0.0-0.2 [facility] Comment on above: Performed By: #### Lilly PFEIFFER 2131-12, BMP, CBCA #### [facility] ([id number]) [address] [address] [place] [address] ABSOLUTE NEUTROPHIL 7.1 X10E9/L High 1.5-6.6 [facility] Comment on above: Performed By: #### T KENTRELL, 2131-12, BMP, CBCA #### [facility] ([id number]) [address] [facility] [address] [place] [address] Basophils/100 WBC (Bld) 0.6 % Normal [facility] Comment on above: Performed By: #### T HAYDER, 2131-12, BMP, CBCA #### [facility] ([id number]) [address] [facility] [address] [place] [address] Eosinophils (Bld) [#/Vol] 0.1 10*3/uL Normal 0.0-0.4 [facility] Comment on above: Performed By: #### Lilly PFEIFFER 2131-12, BMP, CBCA #### [facility] ([id number]) [address] [facility] [address] [place] [address] Eosinophils/100 WBC (Bld) 1.0 % Normal [facility] Comment on above: Performed By: #### Lilly PFEIFFER 2131-12, BMP, CBCA #### [facility] ([id number]) [address] [facility] [address] [place] [address] Erythrocyte distribution width (RBC) [Ratio] 20.7 % High 11.5-15.0 [facility] Comment on above: Performed By: #### Lilly PFEIFFER 2131-12, BMP, CBCA #### [facility] ([id number]) [address] [facility] [address] [place] [address] Hematocrit (Bld) [Volume fraction] 37.2 % Normal 35-47 [facility] Comment on above: Performed By: #### Lilly PFEIFFER 2131-12, BMP, CBCA #### [facility] ([id number]) [address] [facility] [address] [place] [address] Hemoglobin (Bld) [Mass/Vol] 11.7 g/dL Normal 11.7-15.5 [facility] Comment on above: Performed By: #### Lilly PFEIFFER 2131-12, BMP, CBCA #### [facility] ([id number]) [address] [address] [place] [address] Lymphocytes (Bld) [#/Vol] 1.6 10*3/uL Normal 1.0-3.5 [facility] Comment on above: Performed By: #### Lilly PFEIFFER 2131-12, BMP, CBCA #### [facility] ([id number]) [address] [place] [address] Lymphocytes/100 WBC (Bld) 17.6 % Normal [facility] Comment on above: Performed By: #### Lilly PFEIFFER 2131-12, BMP, CBCA #### [facility] ([id number]) [address] [facility] [address] [place] [address] MCH (RBC) [Entitic mass] 23.0 pg Low 27-34 [facility] Comment on above: Performed By: #### Lilly PFEIFFER, 2131-12, BMP, CBCA #### [facility] ([id number]) [address] [facility] [address] [place] [address] MCHC (RBC) [Mass/Vol] 31.4 g/dL Low 32-36 [facility] Comment on above: Performed By: #### Lilly PFEIFFER 2131-12, BMP, CBCA #### [facility] ([id number]) [address] [place] [address] MCV (RBC) [Entitic vol] 73 fL Low 80-100 [facility] Comment on above: Performed By: #### T KENTRELL 2131-12, BMP, CBCA #### [facility] ([id number]) [address] [facility] [address] [place] [address] Monocytes (Bld) [#/Vol] 0.4 10*3/uL Normal 0-0.9 [facility] Comment on above: Performed By: #### T KENTRELL 2131-12, BMP, CBCA #### [facility] ([id number]) [address] [facility] [address] [place] [address] Monocytes/100 WBC (Bld) 4.2 % Normal [facility] Comment on above: Performed By: #### T KENTRELL 2131-12, BMP, CBCA #### [facility] ([id number]) [address] [place] [address] Neutrophils/100 WBC (Bld) 76.6 % Normal [facility] Comment on above: Performed By: #### Lilly PFEIFFER 2131-12, BMP, CBCA #### [facility] ([id number]) [address] [place] [address] Platelet mean volume (Bld) [Entitic vol] 8.2 fL Normal 7-12 [facility] Comment on above: Performed By: #### Lilly PFEIFFER 2131-12, BMP, CBCA #### [facility] ([id number]) [address] [place] [address] Platelets (Bld) [#/Vol] 396 10*3/uL Normal 150-450 [facility] Comment on above: Performed By: #### Lilly PFEIFFER 2131-12, BMP, CBCA #### [facility] ([id number]) [address] [place] [address] RBC COUNT 5.09 X10E12/L Normal 3.80-5.20 [facility] Comment on above: Performed By: #### Lilly PFEIFFER 2131-12, BMP, CBCA #### [facility] ([id number]) [address] [place] [address] WBC (Bld) [#/Vol] 9.3 10*3/uL Normal 4.0-11.0 [facility] Comment on above: Performed By: #### Lilly PFEIFFER 2131-12, BMP, CBCA #### [facility] ([id number]) [address] [place] [address] COMPREHENSIVE METABOLIC PANE Meek 07-07-2024 Albumin [Mass/Vol] 4.1 g/dL Normal 3.2-5.3 [facility] Comment on above: Performed By: #### Lilly PFEIFFER 2131-12, BMP, CBCA #### [facility] ([id number]) [address] [place] [address] ALP [Catalytic activity/Vol] 106 U/L Normal 39-130 [facility] Comment on above: Performed By: #### Lilly PFEIFFER 2131-12, BMP, CBCA #### [facility] ([id number]) [address] [place] [address] ALT [Catalytic activity/Vol] 30 U/L Normal 0-31 [facility] Comment on above: Performed By: #### Lilly PFEIFFER 2131-12, BMP, CBCA #### [facility] ([id number]) [address] [place] [address] Anion gap [Moles/Vol] 10 mmol/L Normal 5-15 [facility] Comment on above: Performed By: #### Lilly PFEIFFER 2131-12, BMP, CBCA #### [facility] ([id number]) [address] [place] [address] AST [Catalytic activity/Vol] 30 U/L Normal 0-41 [facility] Comment on above: Performed By: #### Lilly PFEIFFER 2131-12, BMP, CBCA #### [facility] ([id number]) [address] [place] [address] Bilirubin [Mass/Vol] 0.3 mg/dL Normal 0.3-1.2 [facility] Comment on above: Performed By: #### Lilly PFEIFFER 2131-12, BMP, CBCA #### [facility] ([id number]) [address] [place] [address] Calcium [Mass/Vol] 9.6 mg/dL Normal 8.5-10.5 [facility] Comment on above: Performed By: #### Lilly PFEIFFER 2131-12, BMP, CBCA #### [facility] ([id number]) [address] [place] [address] Chloride [Moles/Vol] 105 mmol/L Normal 98-109 [facility] Comment on above: Performed By: #### Lilly PFEIFFER, 2131-12, BMP, CBCA #### [facility] ([id number]) [address] [place] [address] CO2 [Moles/Vol] 25 mmol/L Normal 22-32 [facility] Comment on above: Performed By: #### Lilly PFEIFFER 2131-12, BMP, CBCA #### [facility] ([id number]) [address] [place] [address] Creatinine [Mass/Vol] 1.14 mg/dL High 0.40-1.00 [facility] Comment on above: Result Comment: METH OD TRACEABLE TO IDMS STANDARD Performed By: #### Lilly PFEIFFER 2131-12, KEKE, CBCA #### [facility] ([id number]) [address] [place] [address] GFR/1.73 sq M.predicted among non-blacks MDRD (S/P/Bld) [Vol rate/Area] 54 mL/min/{1.73_m2} Low >59 [facility] Comment on above: Result Comment: Reported eGFR is based on the CKD-EPI 2020 equation that does not use a race coefficient. Performed By: #### Lilly PFEIFFER 2131-12, BMP, CBCA #### [facility] ([id number]) [address] [place] [address] Glucose [Mass/Vol] 144 mg/dL High 65-99 [facility] Comment on above: Performed By: #### Lilly PFEIFFER 2131-12, BMP, CBCA #### [facility] ([id number]) [address], [address] [place] [address] Potassium [Moles/Vol] 3.9 mmol/L Normal 3.5-5.0 [facility] Comment on above: Performed By: #### Lilly PFEIFFER, 2131-12, BMP, CBCA #### [facility] ([id number]) [address], [address] [place] [address] Protein [Mass/Vol] 7.5 g/dL Normal 6.0-8.0 [facility] Comment on above: Performed By: #### Lilly PFEIFFER, 2131-12, BMP, CBCA #### [facility] ([id number]) [address], [address] [place] [address] Sodium [Moles/Vol] 140 mmol/L Normal 134-146 [facility] Comment on above: Performed By: #### Lilly PFEIFFER, 2131-12, BMP, CBCA #### [facility] ([id number]) [address], [address] [place] [address] Urea nitrogen [Mass/Vol] 11 mg/dL Normal 5-27 [facility] Comment on above: Performed By: #### Lilly PFEIFFER, 2131-12, BMP, CBCA #### [facility] ([id number]) [address], [address] [place] [address] HGB A1C (GLYCO-HGB)on 2024 Glucose [Mass/Vol] 140 mg/dL Normal [facility] Comment on above: Performed By: #### Lilly PFEIFFER, 2131-12, BMP, CBCA #### [facility] ([id number]) [address], [address] [place] [address] HbA1c (Bld) [Mass fraction] 6.5 % High 4.4-5.6 [facility] Comment on above: Result Comment: NOTE ADA Guidelines Result HgbA1c Normal : less than 5.7 % Prediabetes : 5.7 % to 6.4 % Diabetes : > 6.4 % Use with caution in patients with abnormal hemoglobin variants as the half-life of red blood cells and in vivo glycation rates are affected. Performed By: ###Fabi PFEIFFER, 2131-12, ANNA DAVIES #### [facility] ([id number]) [address], [address] [place] [address] Lipid 1996 panelon 5 Cholesterol [Mass/Vol] 188 mg/dL Normal 150-200 [facility] Comment on above: Performed By: ###Fabi PFEIFFER, 2131-12, ANNA DAVIES #### [facility] ([id number]) [address], [address] [place] [address] Cholesterol in HDL [Mass/Vol] 33 mg/dL Low >39 [facility] Comment on above: Result Comment: HDL <40 mg/dL - High Risk HDL > or = 40mg/dL- Desirable HDL >60 mg/dL - Negative Risk Performed By: ###Fabi PFEIFFER, 2131-12, ANNA DAVIES #### [facility] ([id number]) [address], [address] [place] [address] Cholesterol in LDL [Mass/Vol] 118 mg/dL Normal <130 [facility] Comment on above: Result Comment: LDL <100 mg/dL - Desirable LDL >160 mg/dL - High Risk Performed By: #### Lilly PFEIFFER, 2131-12, KEKE, CBCA #### [facility] ([id number]) [address], [address] [place] [address] Cholesterol in VLDL [Mass/Vol] 37 mg/dL High 0-30 [facility] Comment on above: Performed By: #### Lilly PFEIFFER, 2131-12, BMP, CBCA #### [facility] ([id number]) [address], [address] [place] [address] CHOLESTEROL:HDL 5.7 High 1.0-5.0 [facility] Comment on above: Performed By: #### Lilly PFEIFFER, 2131-12, BMP, CBCA #### [facility] ([id number]) [address], [address] [place] [address] Triglyceride [Mass/Vol] 185 mg/dL High 27-150 [facility] Comment on above: Performed By: #### Lilly PFEIFFER, 2131-12, BMP, CBCA #### [facility] ([id number]) [address], [address] [place] [address] VITAMIN B12on 07-07-2024 Cobalamin (Vitamin B12) [Mass/Vol] 1244 pg/mL High 180-914 [facility] Comment on above: Performed By: #### Lilly PFEIFFER, 2131-12, BMP, CBCA #### [facility] ([id number]) [address], [address] [place] [address] CBC AND AUTO DIFFon 20 24 ABSOLUTE BASOPHIL 0.1 X10E9/L Normal 0.0-0.2 [facility] Comment on above: Performed By: #### C LANA, 257-8, HA1C, 2088-04, CBCA #### [facility] ([id number]) [address], [address] [place] [address] ABSOLUTE NEUTROPHIL 8.1 X10E9/L High 1.5-6.6 [facility] Comment on above: Performed By: #### C LANA, 257-8, HA1C, 2088-04, CBCA #### [facility] ([id number]) [address], [address] [place] [address] Basophils/100 WBC (Bld) 0.7 % Normal [facility] Comment on above: Performed By: #### C LANA, 2570-11, , 2088-04, CBCA #### [facility] ([id number]) [address], [address] [place] [address] Eosinophils (Bld) [#/Vol] 0.2 10*3/uL Normal 0.0-0.4 [facility] Comment on above: Performed By: #### C LANA, 2570-11, , 2088-04, CBCA #### [facility] ([id number]) [address], [facility] [address] [place] [address] Eosinophils/100 WBC (Bld) 1.4 % Normal [facility] Comment on above: Performed By: #### Javid SCHWARTZ, 2570-11, , 2088-04, CBCA #### [facility] ([id number]) [address], [address] [place] [address] Erythrocyte distribution width (RBC) [Ratio] 19.2 % High 11.5-15.0 [facility] Comment on above: Performed By: #### C LANA, 2570-11, , 2088-04, CBCA #### [facility] ([id number]) [address], [address] [place] [address] Hematocrit (Bld) [Volume fraction] 31.0 % Low 35-47 [facility] Comment on above: Performed By: #### C LANA, 2570-11, , 2088-04, CBCA #### [facility] ([id number]) [address], [address] [place] [address] Hemoglobin (Bld) [Mass/Vol] 9.2 g/dL Low 11.7-15.5 [facility] Comment on above: Performed By: #### Javid SCHWARTZ, 2570-11, , 2088-04, CBCA #### [facility] ([id number]) [address] [address] [place] [address] Lymphocytes (Bld) [#/Vol] 2.2 10*3/uL Normal 1.0-3.5 [facility] Comment on above: Performed By: #### Javid SCHWARTZ, 2570-11, , 2088-04, CBCA #### [facility] ([id number]) [address] [address] Lymphocytes/100 WBC (Bld) 19.8 % Normal [facility] Comment on above: Performed By: #### Javid SCHWARTZ, 2570-11, , 2088-04, CBCA #### [facility] ([id number]) [address] [address] [place] [address] MCH (RBC) [Entitic mass] 21.8 pg Low 27-34 [facility] Comment on above: Performed By: #### Javid SCHWARTZ, 2570-11, , 2088-04, CBCA #### [facility] ([id number]) [address] [address] MCHC (RBC) [Mass/Vol] 29.8 g/dL Low 32-36 [facility] Comment on above: Performed By: #### Javid SCHWARTZ, 2570-11, , 2088-04, CBCA #### [facility] ([id number]) [address] [address] MCV (RBC) [Entitic vol] 73 fL Low 80-100 [facility] Comment on above: Performed By: #### Javid SCHWARTZ, 2570-11, , 2088-04, CBCA #### [facility] ([id number]) [address] [address] [place] [address] Monocytes (Bld) [#/Vol] 0.4 10*3/uL Normal 0-0.9 [facility] Comment on above: Performed By: #### C LANA, 2570-11, HA, 2088-04, CBCA #### [facility] ([id number]) [address], [address] [place] [address] Monocytes/100 WBC (Bld) 4.0 % Normal [facility] Comment on above: Performed By: #### C LANA, 2570-11, HA, 2088-04, CBCA #### [facility] ([id number]) [address], [address] [place] [address] Neutrophils/100 WBC (Bld) 74.1 % Normal [facility] Comment on above: Performed By: #### C LANA, 2570-11, HA, 2088-04, CBCA #### [facility] ([id number]) [address], [address] [place] [address] Platelet mean volume (Bld) [Entitic vol] 8.0 fL Normal 7-12 [facility] Comment on above: Performed By: #### C LANA, 2570-11, , 2088-04, CBCA #### [facility] ([id number]) [address], [address] [place] [address] Platelets (Bld) [#/Vol] 412 10*3/uL Normal 150-450 [facility] Comment on above: Performed By: #### C LANA, 2570-11, HA, 2088-04, CBCA #### [facility] ([id number]) [address], [address] [place] [address] RBC COUNT 4.24 X10E12/L Normal 3.80-5.20 [facility] Comment on above: Performed By: #### C LANA, 2570-11, HA, 2088-04, CBCA #### [facility] ([id number]) [address], [address] [place] [address] WBC (Bld) [#/Vol] 11.0 10*3/uL Normal 4.0-11.0 [facility] Comment on above: Performed By: #### C MP, 2571-8, HA1C, 2088-, CBCA #### [facility] ([id number]) [address], [address] [place] [address] CBC auto differentialon 02-25 Basophils (Bld) [#/Vol] 0.1 10*3/uL [facility] Basophils/100 WBC (Bld) 0.7 % [facility] Eosinophils (Bld) [#/Vol] 0.2 10*3/uL [facility] Eosinophils/100 WBC (Bld) 1.4 % [facility] Erythrocyte distribution width (RBC) [Ratio] 19.2 % High 11.5 - 15.0 % [facility] Hematocrit (Bld) [Volume fraction] 31 % Low 35 - 47 % [facility] Hemoglobin (Bld) [Mass/Vol] 9.2 g/dL Low 11.7 - 15.5 g/dL [facility] Interpretation and review of laboratory results Abnormal [facility] Lymphocytes (Bld) [#/Vol] 2.2 10*3/uL [facility] Lymphocytes/100 WBC (Bld) 19.8 % [facility] MCH (RBC) [Entitic mass] 21.8 pg Low 27 - 34 pg [facility] MCHC (RBC) [Mass/Vol] 29.8 g/dL Low 32 - 36 g/dL [facility] MCV (RBC) [Entitic vol] 73 fL Low 80 - 100 fL [facility] Monocytes (Bld) [#/Vol] 0.4 10*3/uL [facility] Monocytes/100 WBC (Bld) 4 % [facility] Neutrophils (Bld) [#/Vol] 8.1 10*3/uL High [facility] Neutrophils/100 WBC (Bld) 74.1 % [facility] Platelet mean volume (Bld) [Entitic vol] 8 fL 7 - 12 fL [facility] Platelets (Bld) [#/Vol] 412 10*3/uL [facility] RBC (Bld) [#/Vol] 4.24 10*6/uL [facility] WBC corrected for nucl RBC Auto (Bld) [#/Vol] 11 [facility] COMPREHENSIVE METABOLIC PANE Meek 03-07-2024 Albumin [Mass/Vol] 4.0 g/dL Normal 3.2-5.3 [facility] Comment on above: Performed By: #### Lilly PFEIFFER, 2131-12, BMP, CBCA #### [facility] ([id number]) [address], [address] [place] [address] ALP [Catalytic activity/Vol] 94 U/L Normal 39-130 [facility] Comment on above: Performed By: #### Lilly PFEIFFER 2131-12, BMP, CBCA #### [facility] ([id number]) [address] [place] [address] ALT [Catalytic activity/Vol] 13 U/L Normal 0-31 [facility] Comment on above: Performed By: #### Lilly PFEIFFER 2131-12, BMP, CBCA #### [facility] ([id number]) [address], [address] [place] [address] Anion gap [Moles/Vol] 6 mmol/L Normal 5-15 [facility] Comment on above: Performed By: #### Lilly PFEIFFER 2131-12, BMP, CBCA #### [facility] ([id number]) [address], [address] [place] [address] AST [Catalytic activity/Vol] 12 U/L Normal 0-41 [facility] Comment on above: Performed By: #### Lilly PFEIFFER 2131-12, BMP, CBCA #### [facility] ([id number]) [address], [address] [place] [address] Bilirubin [Mass/Vol] 0.3 mg/dL Normal 0.3-1.2 [facility] Comment on above: Performed By: #### Lilly PFEIFFER, 2131-12, BMP, CBCA #### [facility] ([id number]) [address], [address] [place] [address] Calcium [Mass/Vol] 9.0 mg/dL Normal 8.5-10.5 [facility] Comment on above: Performed By: #### Lilly PFEIFFER, 2131-12, BMP, CBCA #### [facility] ([id number]) [address], [facility] [address] [place] [address] Chloride [Moles/Vol] 100 mmol/L Normal 98-109 [facility] Comment on above: Performed By: #### Lilly PFEIFFER, 2131-12, BMP, CBCA #### [facility] ([id number]) [address], [address] [place] [address] CO2 [Moles/Vol] 32 mmol/L Normal 22-32 [facility] Comment on above: Performed By: #### Lilly PFEIFFER, 2131-12, BMP, CBCA #### [facility] ([id number]) [address], [address] [place] [address] Creatinine [Mass/Vol] 1.26 mg/dL High 0.40-1.00 [facility] Comment on above: Result Comment: METH OD TRACEABLE TO IDMS STANDARD Performed By: #### T KENTRELL, 2131-12, BMP, CBCA #### [facility] ([id number]) [address], [address] [place] [address] GFR/1.73 sq M.predicted among non-blacks MDRD (S/P/Bld) [Vol rate/Area] 49 mL/min/{1.73_m2} Low >59 [facility] Comment on above: Result Comment: Reported eGFR is based on the CKD-EPI 2020 equation that does not use a race coefficient. Performed By: #### T KENTRELL, 2131-12, BMP, CBCA #### [facility] ([id number]) [address], [address] [place] [address] Glucose [Mass/Vol] 120 mg/dL High 65-99 [facility] Comment on above: Performed By: #### Lilly PFEIFFER 2131-12, BMP, CBCA #### [facility] ([id number]) [address], [address] [place] [address] Potassium [Moles/Vol] 3.6 mmol/L Normal 3.5-5.0 [facility] Comment on above: Performed By: #### Lilly PFEIFFER 2131-12, BMP, CBCA #### [facility] ([id number]) [address], [address] [place] [address] Protein [Mass/Vol] 7.3 g/dL Normal 6.0-8.0 [facility] Comment on above: Performed By: #### Lilly PFEIFFER 2131-12, BMP, CBCA #### [facility] ([id number]) [address], [address] [place] [address] Sodium [Moles/Vol] 138 mmol/L Normal 134-146 [facility] Comment on above: Performed By: #### Lilly PFEIFFER 2131-12, BMP, CBCA #### [facility] ([id number]) [address], [address] [place] [address] Urea nitrogen [Mass/Vol] 21 mg/dL Normal 5-27 [facility] Comment on above: Performed By: #### Lilly PFEIFFER 2131-12, BMP, CBCA #### [facility] ([id number]) [address], [address] [place] [address] Comprehensive metabolic pane meek 03-07-2024 Albumin [Mass/Vol] 4 g/dL 3.2 - 5.3 g/dL [facility] ALP [Catalytic activity/Vol] 94 U/L 39 - 130 U/L [facility] ALT No additional P-5'-P [Catalytic activity/Vol] 13 U/L 0 - 31 U/L [facility] Anion gap [Moles/Vol] 6 mmol/L 5 - 15 mmol/L [facility] AST [Catalytic activity/Vol] 12 U/L 0 - 41 U/L [facility] Bilirubin [Mass/Vol] 0.3 mg/dL 0.3 - 1.2 mg/dL [facility] Calcium [Mass/Vol] 9 mg/dL 8.5 - 10. 5 mg/dL [facility] Chloride [Moles/Vol] 100 mmol/L 98 - 109 mmol/L [facility] CO2 [Moles/Vol] 32 mmol/L 22 - 32 mmol/L [facility] Creatinine [Mass/Vol] 1.26 mg/dL High 0.40 - 1.00 mg/dL [facility] Comment on above: METHOD TRACEABLE TO [facility] STANDARD eGFR (CKD-EPI)non-race dependent 49 Low - PINF [facility] Comment on above: Reported eGFR is based on the CKD-EPI 2020 equation that does not use a race coefficient. Glucose [Mass/Vol] 120 mg/dL High 65 - 99 mg/dL [facility] Interpretation and review of laboratory results Abnormal [facility] Potassium [Moles/Vol] 3.6 mmol/L 3.5 - 5.0 mmol/L [facility] Protein [Mass/Vol] 7.3 g/dL 6.0 - 8.0 g/dL [facility] Sodium [Moles/Vol] 138 mmol/L 134 - 146 mmol/L [facility] Urea nitrogen [Mass/Vol] 21 mg/dL 5 - 27 mg/dL [facility] DIRECT LDLon 03-07-2024 Cholesterol in LDL [Mass/Vol] 161 mg/dL High <130 [facility] Comment on above: Result Comment: LDL <100 mg/dL - Desirable LDL 130-159 mg/dL - Borderline High Risk LDL >160 mg/dL - High Risk Performed By: #### T KENTRELL, 2131-12, BMP, CBCA #### [facility] ([id number]) [address], [address] [place] [address] HGB A1C (GLYCO-HGB)on 2023 Glucose [Mass/Vol] 123 mg/dL Normal [facility] Comment on above: Performed By: #### T KENTRELL, 2131-12, BMP, CBCA #### [facility] ([id number]) [address] [place] [address] HbA1c (Bld) [Mass fraction] 5.9 % High 4.4-5.6 [facility] Comment on above: Result Comment: NOTE ADA Guidelines Result HgbA1c Normal : less than 5.7 % Prediabetes : 5.7 % to 6.4 % Diabetes : > 6.4 % Use with caution in patients with abnormal hemoglobin variants as the half-life of red blood cells and in vivo glycation rates are affected. Performed By: #### T KENTRELL, 2131-12, BMP, CBCA #### [facility] ([id number]) [address] [place] [address] Hemoglobin A1con 03-07-2024 Average glucose Estimated from glycated hemoglobin (Bld) [Mass/Vol] 123 mg/dL [facility] HbA1c (Bld) [Mass fraction] 5.9 % High 4.4 - 5.6 % [facility] Comment on above: NOTE ADA Guidelines Result HgbA1c Normal : less than 5.7 % Prediabetes : 5.7 % to 6.4 % Diabetes : > 6.4 % Use with caution in patients with abnormal hemoglobin variants as the half-life of red blood cells and in vivo glycation rates are affected. Interpretation and review of laboratory results Abnormal [facility] MICROALBUMIN - ALBUMIN:CREAT ININE URINE RATIOon 03-07-2024 ALB/CREAT RATIO NOT CALCULATED Normal 0.0-30.0 [facility] Comment on above: Result Comment: Result for Albumin/Creatinine Ratio cannot be reliably calculated because urine albumin and or urine creatinine is below the detection limit of the assay. Performed By: #### T KENTRELL, 2131-12, BMP, CBCA #### [facility] ([id number]) [address], [address] [place] [address] Albumin DL <= 20 mg/L (U) [Mass/Vol] mg/dL Normal 0.0-1.9 [facility] Comment on above: Performed By: #### Lilly PFEIFFER, 2131-12, BMP, CBCA #### [facility] ([id number]) [address], [address] [place] [address] URINE CREAT 46.22 mg/dL Normal [facility] Comment on above: Performed By: #### Lilly PFEIFFER, 2131-12, BMP, CBCA #### [facility] ([id number]) [address], [address] [place] [address] Microalbumin - Albumin: Crea tinine Urine Ratioon 03-07-2024 Albumin DL <= 20 mg/L (U) [Mass/Vol] mg/dL 0.0 - 1.9 mg/dL [facility] Albumin/Creatinine DL <= 1.0 mg/L (U) [Ratio] NOT CALCULATED [facility] Comment on above: Result for Albumin/Creatinine Ratio cannot be reliably calculated because urine albumin and or urine creatinine is below the detection limit of the assay. Creatinine (U) [Mass/Vol] 46.22 mg/dL [facility] TRIGLYCERIDEon 03-07-2024 Triglyceride [Mass/Vol] 113 mg/dL Normal 27-150 [facility] Comment on above: Performed By: #### T KENTRELL, 2131-12, BMP, CBCA #### [facility] ([id number]) [address] [place] [address] No Panel Informationon 01-25 Eusebia Huertas DO 01/26/2024 3:45 PM L Inj/Asp: L subacromial bursa on 01/26/2024 1:50 PM Indications: pain Details: 21 G needle, posterior approach Medications: 40 mg methylPREDNISolone acetate 40 MG/ML Outcome: tolerated well, no immediate complications Procedure, treatment alternatives, risks and benefits explained, specific risks discussed. Consent was given by the patient. [employer] XR Shoulder - left 2 Viewson 01-26-2024 Imaging Result: January 26, 2024 x-rays AP axillary and Y scapula of the left shoulder demonstrate a type 2 acromion. The glenohumeral joint and acromioclavicular joints are intact. There are no fractures identified. The humeral head is centered in the glenoid. Impression: Type 2 acromion Cipriano Huertas D.O. [employer] Radiology Study observation (narrative) [facility] [employer] BASIC METABOLIC PANLon 01-03 Anion gap [Moles/Vol] 9 mmol/L Normal 5-15 [facility] Comment on above: Performed By: #### B MP #### [facility] ([id number]) [address] [facility] [place] [address] Calcium [Mass/Vol] 9.1 mg/dL Normal 8.5-10.5 [facility] Comment on above: Performed By: #### B MP #### [facility] ([id number]) [address] [place] [address] Chloride [Moles/Vol] 101 mmol/L Normal 98-109 [facility] Comment on above: Performed By: #### B MP #### [facility] ([id number]) [address] [place] [address] CO2 [Moles/Vol] 31 mmol/L Normal 22-32 [facility] Comment on above: Performed By: #### B MP #### [facility] ([id number]) [address] [place] [address] Creatinine [Mass/Vol] 1.36 mg/dL High 0.40-1.00 [facility] Comment on above: Result Comment: METH OD TRACEABLE TO IDMS STANDARD Performed By: #### B MP #### [facility] ([id number]) [address], [address] [place] [address] GFR/1.73 sq M.predicted among non-blacks MDRD (S/P/Bld) [Vol rate/Area] 44 mL/min/{1.73_m2} Low >59 [facility] Comment on above: Result Comment: Reported eGFR is based on the CKD-EPI 2020 equation that does not use a race coefficient. Performed By: #### B MP #### [facility] ([id number]) [address], [address] [place] [address] Glucose [Mass/Vol] 134 mg/dL High 65-99 [facility] Comment on above: Performed By: #### B MP #### [facility] ([id number]) [address] [address] [place] [address] Potassium [Moles/Vol] 4.1 mmol/L Normal 3.5-5.0 [facility] Comment on above: Performed By: #### B MP #### [facility] ([id number]) [address] [place] [address] Sodium [Moles/Vol] 141 mmol/L Normal 134-146 [facility] Comment on above: Performed By: #### B MP #### [facility] ([id number]) [address] [address] [place] [address] Urea nitrogen [Mass/Vol] 19 mg/dL Normal 5-27 [facility] Comment on above: Performed By: #### B MP #### [facility] ([id number]) [address] [facility] [place] [address] Basic Metabolic Panelon Anion gap [Moles/Vol] 9 mmol/L 5 - 15 mmol/L [facility] Calcium [Mass/Vol] 9.1 mg/dL 8.5 - 10. 5 mg/dL [facility] Chloride [Moles/Vol] 101 mmol/L 98 - 109 mmol/L [facility] [employer] [facility] CO2 [Moles/Vol] 31 mmol/L 22 - 32 mmol/L [facility] Creatinine [Mass/Vol] 1.36 mg/dL High 0.40 - 1.00 mg/dL [facility] Comment on above: METHOD TRACEABLE TO [facility] STANDARD eGFR (CKD-EPI)non-race dependent 44 Low - PINF [facility] Comment on above: Reported eGFR is based on the CKD-EPI 2020 equation that does not use a race coefficient. Glucose [Mass/Vol] 134 mg/dL High 65 - 99 mg/dL [facility] Interpretation and review of laboratory results Abnormal [facility] Potassium [Moles/Vol] 4.1 mmol/L 3.5 - 5.0 mmol/L [facility] Sodium [Moles/Vol] 141 mmol/L 134 - 146 mmol/L [facility] Urea nitrogen [Mass/Vol] 19 mg/dL 5 - 27 mg/dL [facility] No Panel Informationon 12-28 Eusebia Huertas, 12/29/2023 3:11 PM Trigger Point Injection ([place] [address] [place] [address]): left gluteus tej on 12/29/2023 2:58 PM Indications: pain Details: 21 G needle Medications: 40 mg methylPREDNISolone acetate 40 MG/ML Outcome: tolerated well, no immediate complications Procedure, treatment alternatives, risks and benefits explained, specific risks discussed. [employer] XR Spine Single viewon 12-28 Imaging Result: Lateral lumbar and thoracic spine x-rays demonstrate to wedge deformities in the thoracic region both of them with a proximally 50 percent collapse. Estimated levels are T6 and T8. Impression: Stable appearance of compression fractures at T6 and T8 no new fractures Cipriano Huertas D.O. [facility] Study observation (narrative) [facility] BASIC METABOLIC PANLon 11-01 Anion gap [Moles/Vol] 7 mmol/L Normal 5-15 [facility] Comment on above: Performed By: #### B LANA, , 2131-12, CBCA #### [facility] ([id number]) [address], [address] [place] [address] Calcium [Mass/Vol] 9.0 mg/dL Normal 8.5-10.5 [facility] Comment on above: Performed By: #### B LANA, , 2131-12, CBCA #### [facility] ([id number]) [address], [address] [place] [address] Chloride [Moles/Vol] 105 mmol/L Normal 98-109 [facility] Comment on above: Performed By: #### B LANA, , 2131-12, CBCA #### [facility] ([id number]) [address], [address] [place] [address] CO2 [Moles/Vol] 28 mmol/L Normal 22-32 [facility] Comment on above: Performed By: #### B LANA, , 2131-12, CBCA #### [facility] ([id number]) [address], [address] [place] [address] Creatinine [Mass/Vol] 1.23 mg/dL High 0.40-1.00 [facility] Comment on above: Result Comment: METH OD TRACEABLE TO IDMS STANDARD Performed By: #### B LANA, , 2131-12, CBCA #### [facility] ([id number]) [address], [address] [place] [address] GFR/1.73 sq M.predicted among non-blacks MDRD (S/P/Bld) [Vol rate/Area] 50 mL/min/{1.73_m2} Low >59 [facility] Comment on above: Result Comment: Reported eGFR is based on the CKD-EPI 2020 equation that does not use a race coefficient. Performed By: #### B LANA, , 2131-12, CBCA #### [facility] ([id number]) [address], [address] [place] [address] Glucose [Mass/Vol] 88 mg/dL Normal 65-99 [facility] Comment on above: Performed By: #### B LANA, , 2131-12, CBCA #### [facility] ([id number]) [address], [address] [place] [address] Potassium [Moles/Vol] 3.9 mmol/L Normal 3.5-5.0 [facility] Comment on above: Performed By: #### Pawel SCHWARTZ, , 2131-12, CBCA #### [facility] ([id number]) [address], [address] [place] [address] Sodium [Moles/Vol] 140 mmol/L Normal 134-146 [facility] Comment on above: Performed By: #### Pawel SCHWARTZ, , 2131-12, CBCA #### [facility] ([id number]) [address], [facility] [address] [place] [address] Urea nitrogen [Mass/Vol] 17 mg/dL Normal 5-27 [facility] Comment on above: Performed By: #### Pawel SCHWARTZ, , 2131-12, CBCA #### [facility] ([id number]) [address], [address] [place] [address] CBC AND AUTO DIFFon 08- 24 ABSOLUTE BASOPHIL 0.1 X10E9/L Normal 0.0-0.2 [facility] Comment on above: Performed By: #### B LANA, , 2131-12, CBCA #### [facility] ([id number]) [address], [address] [place] [address] ABSOLUTE NEUTROPHIL 5.8 X10E9/L Normal 1.5-6.6 [facility] Comment on above: Performed By: #### B LANA, , 2131-12, CBCA #### [facility] ([id number]) [address], [address] [place] [address] Basophils/100 WBC (Bld) 0.6 % Normal [facility] Comment on above: Performed By: #### B LANA, , 2131-12, CBCA #### [facility] ([id number]) [address], [address] [place] [address] Eosinophils (Bld) [#/Vol] 0.2 10*3/uL Normal 0.0-0.4 [facility] Comment on above: Performed By: #### B LANA, , 2131-12, CBCA #### [facility] ([id number]) [address], [address] [place] [address] Eosinophils/100 WBC (Bld) 1.9 % Normal [facility] Comment on above: Performed By: #### B LANA, , 2131-12, CBCA #### [facility] ([id number]) [address], [address] [place] [address] Erythrocyte distribution width (RBC) [Ratio] 17.0 % High 11.5-15.0 [facility] Comment on above: Performed By: #### B LANA, , 2131-12, CBCA #### [facility] ([id number]) [address], [address] [place] [address] Hematocrit (Bld) [Volume fraction] 33.9 % Low 35-47 [facility] Comment on above: Performed By: #### B LANA, , 2131-12, CBCA #### [facility] ([id number]) [address], [address] [place] [address] Hemoglobin (Bld) [Mass/Vol] 10.6 g/dL Low 11.7-15.5 [facility] Comment on above: Performed By: #### B LANA, , 2131-12, CBCA #### [facility] ([id number]) [address], [address] [place] [address] Lymphocytes (Bld) [#/Vol] 2.3 10*3/uL Normal 1.0-3.5 [facility] Comment on above: Performed By: #### B LANA, , 2131-12, CBCA #### [facility] ([id number]) [address], [address] [place] [address] Lymphocytes/100 WBC (Bld) 25.6 % Normal [facility] Comment on above: Performed By: #### B LANA, , 2131-12, CBCA #### [facility] ([id number]) [address], [address] [place] [address] MCH (RBC) [Entitic mass] 26.1 pg Low 27-34 [facility] Comment on above: Performed By: #### B LANA, , 2131-12, CBCA #### [facility] ([id number]) [address], [address] [place] [address] MCHC (RBC) [Mass/Vol] 31.2 g/dL Low 32-36 [facility] Comment on above: Performed By: #### B LANA, , 2131-12, CBCA #### [facility] ([id number]) [address], [address] [place] [address] MCV (RBC) [Entitic vol] 84 fL Normal 80-100 [facility] Comment on above: Performed By: #### B LANA, , 2131-12, CBCA #### [facility] ([id number]) [address], [address] [place] [address] Monocytes (Bld) [#/Vol] 0.6 10*3/uL Normal 0-0.9 [facility] Comment on above: Performed By: #### B LANA, , 2131-12, CBCA #### [facility] ([id number]) [address], [address] [place] [address] Monocytes/100 WBC (Bld) 6.8 % Normal [facility] Comment on above: Performed By: #### B LANA, , 2131-12, CBCA #### [facility] ([id number]) [address], [address] [place] [address] Neutrophils/100 WBC (Bld) 65.1 % Normal [facility] Comment on above: Performed By: #### B LANA, , 2131-12, CBCA #### [facility] ([id number]) [address], [address] [place] [address] Platelet mean volume (Bld) [Entitic vol] 8.1 fL Normal 7-12 [facility] Comment on above: Performed By: #### B LANA, , 2131-12, CBCA #### [facility] ([id number]) [address], [address] [place] [address] Platelets (Bld) [#/Vol] 287 10*3/uL Normal 150-450 [facility] Comment on above: Performed By: #### B LANA, , 2131-12, CBCA #### [facility] ([id number]) [address], [address] [place] [address] RBC COUNT 4.05 X10E12/L Normal 3.80-5.20 [facility] Comment on above: Performed By: #### B MP, , 2131-12, CBCA #### [facility] ([id number]) [address], [address] [place] [address] WBC (Bld) [#/Vol] 9.0 10*3/uL Normal 4.0-11.0 [facility] Comment on above: Performed By: #### B MP, , 2131-12, CBCA #### [facility] ([id number]) [address], [address] [place] [address] MAGNESIUMon 11-02-2023 Magnesium [Mass/Vol] 2.2 mg/dL Normal 1.8-2.6 [facility] Comment on above: Performed By: #### B LANA, , 2131-12, CBCA #### [facility] ([id number]) [address], [address] [place] [address] VITAMIN B12on 11-02-2023 Cobalamin (Vitamin B12) [Mass/Vol] 370 pg/mL Normal 180-914 [facility] Comment on above: Performed By: #### B LANA, , 2131-12, CBCA #### [facility] ([id number]) [address], [address] [place] [address] BASIC METABOLIC PANLon 09-29 Anion gap [Moles/Vol] 14 mmol/L Normal 5-15 [facility] Comment on above: Performed By: #### T HYR, 2131-12, BMP, CBCA #### [facility] ([id number]) [address], [address] [place] [address] Calcium [Mass/Vol] 9.4 mg/dL Normal 8.5-10.5 [facility] Comment on above: Performed By: #### T HYR, 2131-12, BMP, CBCA #### [facility] ([id number]) [address], [address] [place] [address] Chloride [Moles/Vol] 104 mmol/L Normal 98-109 [facility] Comment on above: Performed By: #### Lilly PFEIFFER, 2131-12, BMP, CBCA #### [facility] ([id number]) [address], [address] [place] [address] CO2 [Moles/Vol] 27 mmol/L Normal 22-32 [facility] Comment on above: Performed By: #### Lilly PFEIFFER 2131-12, BMP, CBCA #### [facility] ([id number]) [address], [address] [place] [address] Creatinine [Mass/Vol] 1.85 mg/dL High 0.40-1.00 [facility] Comment on above: Result Comment: METH OD TRACEABLE TO IDMS STANDARD Performed By: #### Lilly PFEIFFER 2131-12, KEKE, CBCA #### [facility] ([id number]) [address], [address] [place] [address] GFR/1.73 sq M.predicted among non-blacks MDRD (S/P/Bld) [Vol rate/Area] 31 mL/min/{1.73_m2} Low >59 [facility] Comment on above: Result Comment: Reported eGFR is based on the CKD-EPI 2020 equation that does not use a race coefficient. Performed By: #### Lilly PFEIFFER 2131-12, BMP, CBCA #### [facility] ([id number]) [address], [address] [place] [address] Glucose [Mass/Vol] 128 mg/dL High 65-99 [facility] Comment on above: Performed By: #### Lilly PFEIFFER 2131-12, BMP, CBCA #### [facility] ([id number]) [address], [address] [place] [address] Potassium [Moles/Vol] 3.9 mmol/L Normal 3.5-5.0 [facility] Comment on above: Performed By: #### T KENTRELL, 2131-12, BMP, CBCA #### [facility] ([id number]) [address], [address] [place] [address] Sodium [Moles/Vol] 145 mmol/L Normal 134-146 [facility] Comment on above: Performed By: #### Lilly PFEIFFER, 2131-12, BMP, CBCA #### [facility] ([id number]) [address], [address] [place] [address] Urea nitrogen [Mass/Vol] 36 mg/dL High 5-27 [facility] Comment on above: Performed By: #### Lilly PFEIFFER, 2131-12, KEKE, CBCA #### [facility] ([id number]) [address], [address] [place] [address] Basic Metabolic Panelon 06-0 Anion gap [Moles/Vol] 14 mmol/L 5 - 15 mmol/L [facility] Calcium [Mass/Vol] 9.4 mg/dL 8.5 - 10. 5 mg/dL [facility] Chloride [Moles/Vol] 104 mmol/L 98 - 109 mmol/L [facility] CO2 [Moles/Vol] 27 mmol/L 22 - 32 mmol/L [facility] Creatinine [Mass/Vol] 1.85 mg/dL High 0.40 - 1.00 mg/dL [facility] Comment on above: METHOD TRACEABLE TO IDVA STANDARD eGFR (CKD-EPI)non-race dependent 31 Low - PINF [facility] Comment on above: Reported eGFR is based on the CKD-EPI 2020 equation that does not use a race coefficient. Glucose [Mass/Vol] 128 mg/dL High 65 - 99 mg/dL [facility] Interpretation and review of laboratory results Abnormal [facility] Potassium [Moles/Vol] 3.9 mmol/L 3.5 - 5.0 mmol/L [facility] Sodium [Moles/Vol] 145 mmol/L 134 - 146 mmol/L [facility] Urea nitrogen [Mass/Vol] 36 mg/dL High 5 - 27 mg/dL [facility] CBC AND AUTO DIFFon 09-30-19 24 ABSOLUTE BASOPHIL 0.0 X10E9/L Normal 0.0-0.2 [facility] Comment on above: Performed By: #### Lilly PFEIFFER 2131-12, BMP, CBCA #### [facility] ([id number]) [address], [address] [place] [address] ABSOLUTE NEUTROPHIL 5.8 X10E9/L Normal 1.5-6.6 [facility] Comment on above: Performed By: #### Lilly PFEIFFER 2131-12, BMP, CBCA #### [facility] ([id number]) [address], [address] [place] [address] Basophils/100 WBC (Bld) 0.4 % Normal [facility] Comment on above: Performed By: #### Lilly PFEIFFER 2131-12, BMP, CBCA #### [facility] ([id number]) [address], [address] [place] [address] Eosinophils (Bld) [#/Vol] 0.0 10*3/uL Normal 0.0-0.4 [facility] Comment on above: Performed By: #### Lilly PFEIFFER 2131-12, BMP, CBCA #### [facility] ([id number]) [address], [address] [place] [address] Eosinophils/100 WBC (Bld) 0.0 % Normal [facility] Comment on above: Performed By: #### Lilly PFEIFFER 2131-12, BMP, CBCA #### [facility] ([id number]) [address], [address] [place] [address] Erythrocyte distribution width (RBC) [Ratio] 16.2 % High 11.5-15.0 [facility] Comment on above: Performed By: #### Lilly PFEIFFER 2131-12, BMP, CBCA #### [facility] ([id number]) [address], [address] [place] [address] Hematocrit (Bld) [Volume fraction] 35.1 % Normal 35-47 [facility] Comment on above: Performed By: #### Lilly PFEIFFER 2131-12, BMP, CBCA #### [facility] ([id number]) [address], [facility] [address] [place] [address] Hemoglobin (Bld) [Mass/Vol] 11.3 g/dL Low 11.7-15.5 [facility] Comment on above: Performed By: #### Lilly PFEIFFER 2131-12, BMP, CBCA #### [facility] ([id number]) [address] [address] Lymphocytes (Bld) [#/Vol] 1.1 10*3/uL Normal 1.0-3.5 [facility] Comment on above: Performed By: #### Lilly PFEIFFER 2131-12, BMP, CBCA #### [facility] ([id number]) [address], [address] [address] Lymphocytes/100 WBC (Bld) 15.7 % Normal [facility] Comment on above: Performed By: #### Lilly PFEIFFER 2131-12, BMP, CBCA #### [facility] ([id number]) [address], [address] [place] [address] MCH (RBC) [Entitic mass] 27.0 pg Normal 27-34 [facility] Comment on above: Performed By: #### Lilly PFEIFFER 2131-12, BMP, CBCA #### [facility] ([id number]) [address], [address] [place] [address] MCHC (RBC) [Mass/Vol] 32.2 g/dL Normal 32-36 [facility] Comment on above: Performed By: #### Lilly PFEIFFER 2131-12, BMP, CBCA #### [facility] ([id number]) [address], [address] [place] [address] MCV (RBC) [Entitic vol] 84 fL Normal 80-100 [facility] Comment on above: Performed By: #### Lilly PFEIFFER 2131-12, BMP, CBCA #### [facility] ([id number]) [address], [address] [place] [address] Monocytes (Bld) [#/Vol] 0.2 10*3/uL Normal 0-0.9 [facility] Comment on above: Performed By: #### Lilly PFEIFFER 2131-12, BMP, CBCA #### [facility] ([id number]) [address], [facility] [address] [place] [address] Monocytes/100 WBC (Bld) 2.3 % Normal [facility] Comment on above: Performed By: #### Lilly PFEIFFER 2131-12, BMP, CBCA #### [facility] ([id number]) [address], [facility] [address] [place] [address] Neutrophils/100 WBC (Bld) 81.6 % Normal [facility] Comment on above: Performed By: #### Lilly PFEIFFER 2131-12, BMP, CBCA #### [facility] ([id number]) [address], [address] [place] [address] Platelet mean volume (Bld) [Entitic vol] 8.1 fL Normal 7-12 [facility] Comment on above: Performed By: #### Lilly PFEIFFER 2131-12, BMP, CBCA #### [facility] ([id number]) [address], [address] [place] [address] Platelets (Bld) [#/Vol] 380 10*3/uL Normal 150-450 [facility] Comment on above: Performed By: #### Lilly PFEIFFER, 2131-12, BMP, CBCA #### [facility] ([id number]) [address], [address] [place] [address] RBC COUNT 4.19 X10E12/L Normal 3.80-5.20 [facility] Comment on above: Performed By: #### T HYR, 2131-12, BMP, CBCA #### [facility] ([id number]) [address], [address] [place] [address] WBC (Bld) [#/Vol] 7.2 10*3/uL Normal 4.0-11.0 [facility] Comment on above: Performed By: #### T HAYDER, 2131-12, BMP, CBCA #### [facility] ([id number]) [address], [address] [place] [address] CBC auto differentialon 0 Basophils (Bld) [#/Vol] 0.0 10*3/uL [facility] Basophils/100 WBC (Bld) 0.4 % [facility] Eosinophils (Bld) [#/Vol] 0.0 10*3/uL [facility] Eosinophils/100 WBC (Bld) 0.0 % [facility] Erythrocyte distribution width (RBC) [Ratio] 16.2 % High 11.5 - 15.0 % [facility] Hematocrit (Bld) [Volume fraction] 35.1 % 35 - 47 % [facility] Hemoglobin (Bld) [Mass/Vol] 11.3 g/dL Low 11.7 - 15.5 g/dL [facility] Interpretation and review of laboratory results Abnormal [facility] Lymphocytes (Bld) [#/Vol] 1.1 10*3/uL [facility] Lymphocytes/100 WBC (Bld) 15.7 % [facility] MCH (RBC) [Entitic mass] 27.0 pg 27 - 34 pg [facility] MCHC (RBC) [Mass/Vol] 32.2 g/dL 32 - 36 g/dL [facility] MCV (RBC) [Entitic vol] 84 fL 80 - 100 fL [facility] Monocytes (Bld) [#/Vol] 0.2 10*3/uL [facility] Monocytes/100 WBC (Bld) 2.3 % [facility] Neutrophils (Bld) [#/Vol] 5.8 10*3/uL [facility] Neutrophils/100 WBC (Bld) 81.6 % [facility] Platelet mean volume (Bld) [Entitic vol] 8.1 fL 7 - 12 fL [facility] Platelets (Bld) [#/Vol] 380 10*3/uL [facility] RBC (Bld) [#/Vol] 4.19 10*6/uL [facility] WBC corrected for nucl RBC Auto (Bld) [#/Vol] 7.2 [facility] Cobalamin (Vitamin B12) [Mas s/Vol]on 09-30-2023 [facility] THYROID PROFILEon 09-30-2023 Free T4 [Mass/Vol] 1.19 ng/dL Normal 0.61-1.60 [facility] Comment on above: Performed By: #### T KENTRELL, 2131-12, BMP, CBCA #### [facility] ([id number]) [address] [place] [address], [address] [place] [address] TSH 0.11 uIU/mL Low 0.49-4.67 [facility] Comment on above: Performed By: #### T HYR, 2131-12, BMP, CBCA #### [facility] ([id number]) [address] [place] [address], [address] [place] [address] Thyroid profile includes TSH FT4on 09-30-2023 Free T4 [Mass/Vol] 1.19 ng/dL 0.61 - 1.60 ng/dL [facility] Interpretation and review of laboratory results Abnormal [facility] TSH Qn 0.11 m[IU]/L Low [facility] VITAMIN B12on 09-30-2023 Cobalamin (Vitamin B12) [Mass/Vol] 204 pg/mL Normal 180-914 [facility] Comment on above: Performed By: #### T HYR, 2132-9, BMP, CBCA #### [facility] ([id number]) [address], [address] [place] [address] Vitamin B12on 09-30-2023 Cobalamin (Vitamin B12) [Mass/Vol] 204 pg/mL 180 - 914 pg/mL [facility] POCT Influenza A/Influenza B /SARS-COV-2 Veritoron 09-24-2023 External Poct Influenza A Antigen Negative [facility] External Poct Influenza B Antigen Negative [facility] SARS-CoV-2 (COVID-19) Ag IA.rapid Ql (Resp) Negative [facility] XR Chest PA and Lateralon Clinical history: Community-acquired pneumonia. Acute changes and breath sounds. Productive sputum. Shortness of breath and chest congestion. Comparisons: 05/27/2023 through 09/19/2023. CT chest 09/10/2023 Findings: 2 views of the chest obtained. Heart size and mediastinal configuration appear within normal limits and unchanged. Right basilar pulmonary parenchymal scarring is unchanged. Patient is rotated to the right. There is some minimal subsegmental atelectasis in the left lower lobe. No focal pulmonary parenchymal consolidation. No definite pleural effusion. No pneumothorax. Changes of prior cardiac surgery again seen. Left breast peripherally calcified lesion again seen similar to recent CT scan. This likely represents fat necrosis. IMPRESSION: Stable chronic findings in the chest as above. No evidence for acute superimposed cardiopulmonary disease. Finalized by Tristen Neely MD on 09/24/2023 11:13 PM [facility] Tristen Neely M D - 09/24/2023 Clinical history: Community-acquired pneumonia. Acute changes and breath sounds. Productive sputum. Shortness of breath and chest congestion. Comparisons: 05/27/2023 through 09/19/2023. CT chest 09/10/2023 Findings: 2 views of the chest obtained. Heart size and mediastinal configuration appear within normal limits and unchanged. Right basilar pulmonary parenchymal scarring is unchanged. Patient is rotated to the right. There is some minimal subsegmental atelectasis in the left lower lobe. No focal pulmonary parenchymal consolidation. No definite pleural effusion. No pneumothorax. Changes of prior cardiac surgery again seen. Left breast peripherally calcified lesion again seen similar to recent CT scan. This likely represents fat necrosis. IMPRESSION: Stable chronic findings in the chest as above. No evidence for acute superimposed cardiopulmonary disease. Finalized by Tristen Neely MD on 09/24/2023 11:13 PM [facility] Radiology Study observation (narrative) [facility] XR Chest PA and LateralOrder ed By: Tristen Neely on 09-24-2023 [facility] Work Phone: Basic Metabolic Panelon 04-0 Anion gap [Moles/Vol] 8 mmol/L 5 - 15 mmol/L [facility] Calcium [Mass/Vol] 9.0 mg/dL 8.5 - 10. 5 mg/dL [facility] Chloride [Moles/Vol] 100 mmol/L 98 - 109 mmol/L [facility] CO2 [Moles/Vol] 28 mmol/L 22 - 32 mmol/L [facility] Creatinine [Mass/Vol] 1.06 mg/dL High 0.40 - 1.00 mg/dL [facility] Comment on above: METHOD TRACEABLE TO IDMS STANDARD eGFR (CKD-EPI)non-race dependent 60 - PINF [facility] Comment on above: Reported eGFR is based on the CKD-EPI 2020 equation that does not use a race coefficient. Glucose [Mass/Vol] 148 mg/dL High 65 - 99 mg/dL [facility] Interpretation and review of laboratory results Abnormal [facility] Potassium [Moles/Vol] 3.4 mmol/L Low 3.5 - 5.0 mmol/L [facility] Sodium [Moles/Vol] 136 mmol/L 134 - 146 mmol/L [facility] Urea nitrogen [Mass/Vol] 24 mg/dL 5 - 27 mg/dL [facility] Basic Metabolic Panelon 03-3 Anion gap [Moles/Vol] 9 mmol/L 5 - 15 mmol/L [facility] Calcium [Mass/Vol] 8.8 mg/dL 8.5 - 10. 5 mg/dL [facility] Chloride [Moles/Vol] 103 mmol/L 98 - 109 mmol/L [facility] CO2 [Moles/Vol] 27 mmol/L 22 - 32 mmol/L [facility] Creatinine [Mass/Vol] 1.18 mg/dL High 0.40 - 1.00 mg/dL [facility] Comment on above: METHOD TRACEABLE TO [facility] STANDARD eGFR (CKD-EPI)non-race dependent 53 Low - PINF [facility] Comment on above: Reported eGFR is based on the CKD-EPI 2021 equation that does not use a race coefficient. Glucose [Mass/Vol] 157 mg/dL High 65 - 99 mg/dL [facility] Interpretation and review of laboratory results Abnormal [facility] Potassium [Moles/Vol] 3.7 mmol/L 3.5 - 5.0 mmol/L [facility] Sodium [Moles/Vol] 139 mmol/L 134 - 146 mmol/L [facility] Urea nitrogen [Mass/Vol] 18 mg/dL 5 - 27 mg/dL [facility] Basic Metabolic Panelon 03-3 Anion gap [Moles/Vol] 5 mmol/L 5 - 15 mmol/L [facility] Calcium [Mass/Vol] 8.7 mg/dL 8.5 - 10. 5 mg/dL [facility] Chloride [Moles/Vol] 104 mmol/L 98 - 109 mmol/L [facility] CO2 [Moles/Vol] 27 mmol/L 22 - 32 mmol/L [facility] Creatinine [Mass/Vol] 1.57 mg/dL High 0.40 - 1.00 mg/dL [facility] Comment on above: METHOD TRACEABLE TO [facility] STANDARD eGFR (CKD-EPI)non-race dependent 37 Low - PINF [facility] Comment on above: Reported eGFR is based on the CKD-EPI 2021 equation that does not use a race coefficient. Glucose [Mass/Vol] 107 mg/dL High 65 - 99 mg/dL [facility] Interpretation and review of laboratory results Abnormal [facility] Potassium [Moles/Vol] 3.6 mmol/L 3.5 - 5.0 mmol/L [facility] Sodium [Moles/Vol] 136 mmol/L 134 - 146 mmol/L [facility] Urea nitrogen [Mass/Vol] 21 mg/dL 5 - 27 mg/dL [facility] Blood gas, venouson 07-25-19 Arterial patency Wrist artery --pre arterial puncture [facility] Base deficit (Bld) [Moles/Vol] 1.0 mmol/L [facility] [facility] CO2 (BldV) [Partial pressure] 67.8 mm[Hg] High [facility] HCO3 (Bld) [Moles/Vol] 28.0 mmol/L High [facility] Interpretation and review of laboratory results Abnormal [facility] Oxygen (BldV) [Partial pressure] 43 mm[Hg] [facility] Oxygen therapy source and amount [CARE] NC [facility] Oxygen/Inspired gas setting [Volume Fraction] Ventilator 28 % [facility] pH (BldV) 7.224 [pH] Low 7.320 - 7.420 [facility] SaO2% Calculated from oxygen partial pressure (BldV) [Mass fraction] 68.0 % Low 80.0 - PINF % [facility] Specimen site Narrative N/A [facility] Specimen type Nom (Spec) VENOUS [facility] CBC auto differentialon 06-27 Basophils (Bld) [#/Vol] 0.1 10*3/uL [facility] Basophils/100 WBC (Bld) 0.6 % [facility] Eosinophils (Bld) [#/Vol] 0.2 10*3/uL [facility] Eosinophils/100 WBC (Bld) 2.2 % [facility] Erythrocyte distribution width (RBC) [Ratio] 16.6 % High 11.5 - 15.0 % [facility] Hematocrit (Bld) [Volume fraction] 35.0 % 35 - 47 % [facility] Hemoglobin (Bld) [Mass/Vol] 11.3 g/dL Low 11.7 - 15.5 g/dL [facility] Interpretation and review of laboratory results Abnormal [facility] Lymphocytes (Bld) [#/Vol] 2.6 10*3/uL [facility] Lymphocytes/100 WBC (Bld) 25.4 % [facility] MCH (RBC) [Entitic mass] 29.3 pg 27 - 34 pg [facility] MCHC (RBC) [Mass/Vol] 32.3 g/dL 32 - 36 g/dL [facility] MCV (RBC) [Entitic vol] 91 fL 80 - 100 fL [facility] Monocytes (Bld) [#/Vol] 0.6 10*3/uL [facility] Monocytes/100 WBC (Bld) 5.7 % [facility] Neutrophils (Bld) [#/Vol] 6.7 10*3/uL High [facility] Neutrophils/100 WBC (Bld) 66.1 % [facility] Platelet mean volume (Bld) [Entitic vol] 7.9 fL 7 - 12 fL [facility] Platelets (Bld) [#/Vol] 308 10*3/uL [facility] RBC (Bld) [#/Vol] 3.86 10*6/uL [facility] [place] WBC corrected for nucl RBC Auto (Bld) [#/Vol] 10.2 [facility] Critical Careon 07-25-2023 Mary Lock MD 06/27 7:27 PM Critical Care Performed by: Mary Lock MD Authorized by: Mary Lock MD Critical care provider statement: Critical care time (minutes): 30 Critical care time was exclusive of: Separately billable procedures and treating other patients and teaching time Critical care was necessary to treat or prevent imminent or life-threatening deterioration of the following conditions: Respiratory failure Critical care was time spent personally by me on the following activities: Blood draw for specimens, development of treatment plan with patient or surrogate, evaluation of patient's response to treatment, interpretation of cardiac output measurements, obtaining history from patient or surrogate, review of old charts, re-evaluation of patient's condition, pulse oximetry, ordering and review of radiographic studies, ordering and review of laboratory studies, ordering and performing treatments and interventions and examination of patient [facility] ECG 12 leadon 07-25-2023 TRACEMASTERVUE [facility] Laboratory - Microbiology an d Antimicrobial susceptibilityon 07-25-2023 FLUAV+FLUBV RNA HUBERT+probe Ql (Unsp spec) Negative Negative^N egative [facility] Lactate (P yong) [Moles/Vol]o n 07-25-2023 [facility] Lactate w/ Reflexon 07-25-19 24 Lactate (P yong) [Moles/Vol] 1.1 mmol/L 0.4 - 2.0 mmol/L [facility] Comment on above: Result did not trigger repeat Lactate, re-order if needed. SARS/FLU A+B/RSV by NAAT/Mol ecular (M4RT Collection Tube)on 07-25-2023 RSV RNA HUBERT+probe Nom (Unsp spec) Negative Negative^N egative [facility] SARS-CoV-2 (COVID-19) RNA HUBERT+probe Ql (Resp) Not detected Not Detected^N ot Detected [facility] Comment on above: NOTE The Xpert Xpress SARS-CoV-2/Flu/RSV Plus test is a rapid, multiplexed real-time RT-PCR test intended for the simultaneous qualitative detection and differentiation of SARS-CoV-2, influenza A, influenza B and respiratory syncytial virus (RSV) viral RNA from individuals suspected of respiratory viral infection consistent with COVID-19 by their healthcare provider. This test has not been validated in asymptomatic patients. The Xpert Xpress SARS-CoV-2 test is intended for use by qualified and trained operators who are performing tests using either [employer] DX or [employer] Infinity systems and is limited to laboratories that meet the CLIA requirements to perform high and moderate complexity tests. The Xpert Xpress SARS-CoV-2/Flu/RSV Plus is only for use under the Food and Drug Administration's Emergency Use Authorization. Results are for the simultaneous detection and differentiation of SARS-CoV-2, influenza A, influenza B and RSV nucleic acids in clinical specimens. SARS-CoV-2, influenza A, influenza B and RSV RNA identified by this test are generally detectable in upper respiratory samples during the acute phase of infection. Positive results are indicative of the presence of the identified virus, but do not rule out bacterial infection or co-infection with other pathogens not detected by this test. Clinical correlation with patient history and other diagnostic information is necessary to determine patient infection status. The agent detected may not be the definite cause of disease. Negative results do not preclude SARS-CoV-2, influenza A, influenza B and RSV infection and should not be used as the sole basis for treatment or other patient management decisions. Negative results must be combined with clinical observations, patient history and epidemiological information. An Invalid result may occur with specimen-associated inhibition unable to be resolved with specimen repeat. Fact Sheet for Healthcare Providers: https://www.fda.gov/media/133219/download Fact Sheet for Patients: https://www.fda.gov/media/988051/download [facility] Troponin Ion 07-25-2023 Troponin I.cardiac [Mass/Vol] 0.01 ng/mL 0.00 - 0.04 ng/mL [facility] Troponin I.cardiac [Mass/Vol ]on [facility] PA and Lateralon Abdelrahman Patel MD - 07/25/2023 Procedure: Chest x-ray performed Number of views:2 History:Shortness of breath Comparison:07/24/2023 Findings: The heart and lungs show no acute findings, and the mediastinum and satnam are grossly negative . Impression: 1. No acute change. Finalized by Abdelrahman Patel MD on 07/25/2023 5:16 PM [facility] Radiology Study observation (narrative) [facility] XR Chest PA and LateralOrder ed By: Abdelrahman Patel on 07-25-2023 [facility] Work Phone: Basic Metabolic Panelon Anion gap [Moles/Vol] 8 mmol/L 5 - 15 mmol/L [facility] Calcium [Mass/Vol] 9.5 mg/dL 8.5 - 10. 5 mg/dL [facility] Chloride [Moles/Vol] 102 mmol/L 98 - 109 mmol/L [facility] CO2 [Moles/Vol] 32 mmol/L 22 - 32 mmol/L [facility] Creatinine [Mass/Vol] 1.27 mg/dL High 0.40 - 1.00 mg/dL [facility] Comment on above: METHOD TRACEABLE TO IDMS STANDARD eGFR (CKD-EPI)non-race dependent 48 Low - PINF [facility] Comment on above: Reported eGFR is based on the CKD-EPI 2020 equation that does not use a race coefficient. Glucose [Mass/Vol] 87 mg/dL 65 - 99 mg/dL [facility] Interpretation and review of laboratory results Abnormal [facility] Potassium [Moles/Vol] 4.0 mmol/L 3.5 - 5.0 mmol/L [facility] Sodium [Moles/Vol] 142 mmol/L 134 - 146 mmol/L [facility] Urea nitrogen [Mass/Vol] 15 mg/dL 5 - 27 mg/dL [facility] CBC auto differentialon Basophils (Bld) [#/Vol] 0.1 10*3/uL [facility] Basophils/100 WBC (Bld) 0.6 % [facility] Eosinophils (Bld) [#/Vol] 0.1 10*3/uL [facility] Eosinophils/100 WBC (Bld) 1.3 % [facility] Erythrocyte distribution width (RBC) [Ratio] 19.3 % High 11.5 - 15.0 % [facility] Hematocrit (Bld) [Volume fraction] 35.7 % 35 - 47 % [facility] Hemoglobin (Bld) [Mass/Vol] 11.5 g/dL Low 11.7 - 15.5 g/dL [facility] Interpretation and review of laboratory results Abnormal [facility] Lymphocytes (Bld) [#/Vol] 1.5 10*3/uL [facility] Lymphocytes/100 WBC (Bld) 14.5 % [facility] MCH (RBC) [Entitic mass] 29.3 pg 27 - 34 pg [facility] MCHC (RBC) [Mass/Vol] 32.2 g/dL 32 - 36 g/dL [facility] MCV (RBC) [Entitic vol] 91 fL 80 - 100 fL [facility] Monocytes (Bld) [#/Vol] 0.6 10*3/uL [facility] Monocytes/100 WBC (Bld) 5.8 % [facility] Neutrophils (Bld) [#/Vol] 8.1 10*3/uL High [facility] Neutrophils/100 WBC (Bld) 77.8 % [facility] Platelet mean volume (Bld) [Entitic vol] 8.9 fL 7 - 12 fL [facility] Platelets (Bld) [#/Vol] 321 10*3/uL [facility] RBC (Bld) [#/Vol] 3.92 10*6/uL [facility] [place] WBC corrected for nucl RBC Auto (Bld) [#/Vol] 10.5 [facility] TSH with Reflexon 06-01-2023 TSH Qn 0.80 m[IU]/L [facility] CBC AND AUTO DIFFon 04-29-19 ABSOLUTE BASOPHIL 0.1 X10E9/L Normal 0.0-0.2 [facility] Comment on above: Performed By: #### C LANA, 80965-4, , CBCA #### [facility] ([id number]) [address] [place] [address] ABSOLUTE NEUTROPHIL 6.7 X10E9/L High 1.5-6.6 [facility] Comment on above: Performed By: #### C LANA, 73099-2, , CBCA #### [facility] ([id number]) [address] [place] [address] Basophils/100 WBC (Bld) 1.2 % Normal [facility] Comment on above: Performed By: #### C LANA, 50549-6, , CBCA #### [facility] ([id number]) [address] [place] [address] Eosinophils (Bld) [#/Vol] 0.2 10*3/uL Normal 0.0-0.4 [facility] Comment on above: Performed By: #### C LANA, 51939-2, , CBCA #### [facility] ([id number]) [address] [place] [address] Eosinophils/100 WBC (Bld) 2.2 % Normal [facility] Comment on above: Performed By: #### C LANA, 26219-1, , CBCA #### [facility] ([id number]) [address] [place] [address] Erythrocyte distribution width (RBC) [Ratio] 17.3 % High 11.5-15.0 [facility] Comment on above: Performed By: #### C LANA, 05481-2, , CBCA #### [facility] ([id number]) [address] [place] [address] Hematocrit (Bld) [Volume fraction] 40.6 % Normal 35-47 [facility] Comment on above: Performed By: #### C LANA, 64955-2, , CBCA #### [facility] ([id number]) [address] [place] [address] Hemoglobin (Bld) [Mass/Vol] 13.3 g/dL Normal 11.7-15.5 [facility] Comment on above: Performed By: #### C LANA, 04322-7, , CBCA #### [facility] ([id number]) [address] [place] [address] Lymphocytes (Bld) [#/Vol] 2.4 10*3/uL Normal 1.0-3.5 [facility] Comment on above: Performed By: #### C LANA, 29584-3, , CBCA #### [facility] ([id number]) [address] [place] [address] Lymphocytes/100 WBC (Bld) 22.7 % Normal [facility] Comment on above: Performed By: #### C LANA, 73125-6, , CBCA #### [facility] ([id number]) [address] [place] [address] MCH (RBC) [Entitic mass] 28.4 pg Normal 27-34 [facility] Comment on above: Performed By: #### C LANA, 05143-2, , CBCA #### [facility] ([id number]) [address] [place] [address] MCHC (RBC) [Mass/Vol] 32.7 g/dL Normal 32-36 [facility] Comment on above: Performed By: #### C LANA, 96544-2, , CBCA #### [facility] ([id number]) [address] [place] [address] MCV (RBC) [Entitic vol] 87 fL Normal 80-100 [facility] Comment on above: Performed By: #### C LANA, 53182-0, , CBCA #### [facility] ([id number]) [address] [place] [address] Monocytes (Bld) [#/Vol] 1.2 10*3/uL High 0-0.9 [facility] Comment on above: Performed By: #### Javid SCHWARTZ, 16941-6, , CBCA #### [facility] ([id number]) [address] [place] [address] Monocytes/100 WBC (Bld) 11.2 % Normal [facility] Comment on above: Performed By: #### Javid SCHWARTZ, 12223-2, , CBCA #### [facility] ([id number]) [address] [place] [address] Neutrophils/100 WBC (Bld) 62.7 % Normal [facility] Comment on above: Performed By: #### Javid SCHWARTZ, 61448-1, , CBCA #### [facility] ([id number]) [address] [place] [address] Platelet mean volume (Bld) [Entitic vol] 8.3 fL Normal 7-12 [facility] Comment on above: Performed By: #### C LANA, 30618-5, , CBCA #### [facility] ([id number]) [address] [place] [address] Platelets (Bld) [#/Vol] 301 10*3/uL Normal 150-450 [facility] Comment on above: Performed By: #### C LANA, 20536-7, , CBCA #### [facility] ([id number]) [address] [place] [address] RBC COUNT 4.68 X10E12/L Normal 3.80-5.20 [facility] Comment on above: Performed By: #### C LANA, 51688-4, , CBCA #### [facility] ([id number]) [address] [place] [address] WBC (Bld) [#/Vol] 10.7 10*3/uL Normal 4.0-11.0 [facility] Comment on above: Performed By: #### C LANA, 36038-4, , CBCA #### [facility] ([id number]) [address] [place] [address] COMPREHENSIVE METABOLIC PANE Meek 04-29-2023 Albumin [Mass/Vol] 3.5 g/dL Normal 3.2-5.3 [facility] Comment on above: Performed By: #### C LANA, 25804-2, , CBCA #### [facility] ([id number]) [address] [place] [address] ALP [Catalytic activity/Vol] 72 U/L Normal 39-130 [facility] Comment on above: Performed By: #### C LANA, 65602-3, , CBCA #### [facility] ([id number]) [address] [place] [address] ALT [Catalytic activity/Vol] 42 U/L High 0-31 [facility] Comment on above: Performed By: #### C LANA, 43749-8, , CBCA #### [facility] ([id number]) [address] [place] [address] Anion gap [Moles/Vol] 9 mmol/L Normal 5-15 [facility] Comment on above: Performed By: #### C LANA, 12036-2, , CBCA #### [facility] ([id number]) [address] [place] [address] AST [Catalytic activity/Vol] 22 U/L Normal 0-41 [facility] Comment on above: Performed By: #### C LANA, 37040-6, , CBCA #### [facility] ([id number]) [address] [place] [address] Bilirubin [Mass/Vol] 0.8 mg/dL Normal 0.3-1.2 [facility] Comment on above: Performed By: #### C LANA, 18263-3, , CBCA #### [facility] ([id number]) [address] [place] [address] Calcium [Mass/Vol] 10.2 mg/dL Normal 8.5-10.5 [facility] Comment on above: Performed By: #### C LANA, 55436-9, , CBCA #### [facility] ([id number]) [address] [place] [address] Chloride [Moles/Vol] 105 mmol/L Normal 98-109 [facility] Comment on above: Performed By: #### C LANA, 48799-2, , CBCA #### [facility] ([id number]) [address] [place] [address] CO2 [Moles/Vol] 22 mmol/L Normal 22-32 [facility] Comment on above: Performed By: #### C LANA, 37192-0, , CBCA #### [facility] ([id number]) [address] [place] [address] Creatinine [Mass/Vol] 1.29 mg/dL High 0.40-1.00 [facility] Comment on above: Result Comment: METH OD TRACEABLE TO IDMS STANDARD Performed By: #### C LANA, 73680-9, , CBCA #### [facility] ([id number]) [address] [place] [address] GFR/1.73 sq M.predicted among non-blacks MDRD (S/P/Bld) [Vol rate/Area] 48 mL/min/{1.73_m2} Low >59 [facility] Comment on above: Result Comment: Reported eGFR is based on the CKD-EPI 2020 equation that does not use a race coefficient. Performed By: #### C LANA, 82938-7, 22867-9, CBCA #### [facility] ([id number]) [address] [place] [address] Glucose [Mass/Vol] 116 mg/dL High 65-99 [facility] Comment on above: Performed By: #### C LANA, 97457-7, , CBCA #### [facility] ([id number]) [address] [place] [address] Potassium [Moles/Vol] 3.2 mmol/L Low 3.5-5.0 [facility] Comment on above: Performed By: #### C LANA, 75702-9, , CBCA #### [facility] ([id number]) [address] [place] [address] Protein [Mass/Vol] 7.8 g/dL Normal 6.0-8.0 [facility] Comment on above: Performed By: #### C LANA, 82474-4, 00722-7, CBCA #### [facility] ([id number]) [address] [place] [address] Sodium [Moles/Vol] 136 mmol/L Normal 134-146 [facility] Comment on above: Performed By: #### C LANA, 57958-9, 57012-9, CBCA #### [facility] ([id number]) [address] [place] [address] Urea nitrogen [Mass/Vol] 30 mg/dL High 5-23 [facility] Comment on above: Performed By: #### C LANA, 73093-7, 26328-2, CBCA #### [facility] ([id number]) [address] [place] [address] CT ABDOMEN AND PELVIS WO CON Ton 04-29-2023 CT ABDOMEN AND PELVIS WO CONT CT ABDOMEN AND PELVIS WO CONT CLINICAL INFORMATION: Abdominal pain, acute, nonlocalized TECHNIQUE: CT Abdomen and Pelvis without intravenous contrast. All CT scans at this facility use dose modulation, iterative reconstruction, and/or weight based dosing when appropriate to reduce radiation dose to as low as reasonably achievable. COMPARISON: No relevant prior studies available. FINDINGS: No renal calculi or evidence for obstructive uropathy is seen. Although compromised by lack of intravenous contrast, no gross abnormalities are seen within the liver, spleen, adrenal glands, or pancreas. The gallbladder has been surgically removed. No abdominal or retroperitoneal masses or adenopathy are seen. No pelvic masses, adenopathy, or fluid collections are identified. The appendix is normal in appearance. Induration and subcutaneous air in the anterior abdominal wall is felt related to subcutaneous injections. Limited images of lung bases show a 1.5 cm nodule in the lingula (series 2 image 8) that is unchanged from a previous CT thorax dated 04/14/2023 but has increased in size from previous CT thorax dated 10/07/2021 IMPRESSION: * Normal noncontrast CT abdomen pelvis * A 1.5 cm pulmonary nodule in the lingula, increased in size from a CT thorax dated 10/07/2021 Finalized by Kai Finn MD on 04/28/2023 10:39 PM Normal [facility] Glucose Glucometer (BldC) [M ass/Vol]on 04-29-2023 Glucose [Mass/Vol] 148 mg/dL High 65-99 [facility] Glucose [Mass/Vol] 116 mg/dL High 65-99 [facility] Glucose [Mass/Vol] 134 mg/dL High 65-99 [facility] MAGNESIUMon 04-29-2023 Magnesium [Mass/Vol] 2.3 mg/dL Normal 1.8-2.6 [facility] Comment on above: Performed By: #### [place] MP, 66395-0, 02955-0, CBCA #### [facility] ([id number]) [address] [place] [address] Vancomycin [Mass/Vol]on VANCOMYCIN 29.1 ug/mL Normal 5.0-40.0 [facility] Comment on above: Result Comment: Peak 30-40 ug/mL Trough 5-20 ug/ml Performed By: #### C LANA, 25870-7, , CBCA #### [facility] ([id number]) [address] [place] [address] CBC AND AUTO DIFFon 04-28-19 24 ABSOLUTE BASOPHIL 0.1 X10E9/L Normal 0.0-0.2 [facility] Comment on above: Performed By: #### C LANA, 52727-5, , CBCA #### [facility] ([id number]) [address] [place] [address] Basophils/100 WBC (Bld) 1.0 % Normal [facility] Comment on above: Performed By: #### Javid SCHWARTZ, 72434-5, , CBCA #### [facility] ([id number]) [address] [place] [address] Erythrocyte distribution width (RBC) [Ratio] 17.6 % High 11.5-15.0 [facility] Comment on above: Performed By: #### Javid SCHWARTZ, 85705-2, , CBCA #### [facility] ([id number]) [address] [place] [address] Hematocrit (Bld) [Volume fraction] 42.6 % Normal 35-47 [facility] Comment on above: Performed By: #### Javid SCHWARTZ, 26512-0, , CBCA #### [facility] ([id number]) [address] [place] [address] Hemoglobin (Bld) [Mass/Vol] 13.6 g/dL Normal 11.7-15.5 [facility] Comment on above: Performed By: #### C LANA, 45124-1, , CBCA #### [facility] ([id number]) [address] [place] [address] LYMPHOCYTE, ATYPICAL 1.9 % Normal [facility] Comment on above: Performed By: #### C LANA, 18988-1, , CBCA #### [facility] ([id number]) [address] [place] [address] Lymphocytes (Bld) [#/Vol] 3.1 10*3/uL Normal 1.0-3.5 [facility] Comment on above: Performed By: #### C LANA, 18256-5, , CBCA #### [facility] ([id number]) [address] [place] [address] Lymphocytes/100 WBC (Bld) 29.5 % Normal [facility] Comment on above: Performed By: #### Javid SCHWARTZ, 81186-4, , CBCA #### [facility] ([id number]) [address] [place] [address] MCH (RBC) [Entitic mass] 27.7 pg Normal 27-34 [facility] Comment on above: Performed By: #### C LANA, 34420-3, , CBCA #### [facility] ([id number]) [address] [place] [address] MCHC (RBC) [Mass/Vol] 32.0 g/dL Normal 32-36 [facility] Comment on above: Performed By: #### C LANA, 31588-1, , CBCA #### [facility] ([id number]) [address] [place] [address] MCV (RBC) [Entitic vol] 87 fL Normal 80-100 [facility] Comment on above: Performed By: #### C LANA, 90894-7, , CBCA #### [facility] ([id number]) [address] [place] [address] Monocytes (Bld) [#/Vol] 1.2 10*3/uL High 0-0.9 [facility] Comment on above: Performed By: #### C LANA, 20250-7, , CBCA #### [facility] ([id number]) [address] [place] [address] Monocytes/100 WBC (Bld) 12.4 % Normal [facility] Comment on above: Performed By: #### C LANA, 03569-0, , CBCA #### [facility] ([id number]) [address] [place] [address] Neutrophils (Bld) [#/Vol] 5.4 10*3/uL Normal 1.5-6.6 [facility] Comment on above: Performed By: #### C LANA, 28237-7, , CBCA #### [facility] ([id number]) [address] [place] [address] Platelet mean volume (Bld) [Entitic vol] 8.6 fL Normal 7-12 [facility] Comment on above: Performed By: #### C LANA, 80001-6, , CBCA #### [facility] ([id number]) [address] [place] [address] Platelets (Bld) [#/Vol] 398 10*3/uL Normal 150-450 [facility] Comment on above: Performed By: #### C LANA, 45771-5, , CBCA #### [facility] ([id number]) [address] [place] [address] POLYCHROMASIA 1+ Abnormal NONE [facility] Comment on above: Performed By: #### C LANA, 04364-7, , CBCA #### [facility] ([id number]) [address] [place] [address] RBC COUNT 4.92 X10E12/L Normal 3.80-5.20 [facility] Comment on above: Performed By: #### C LANA, 67044-1, , CBCA #### [facility] ([id number]) [address] [place] [address] SEG NEUTROPHIL 55.2 % Normal [facility] Comment on above: Performed By: #### C LANA, 94111-2, , CBCA #### [facility] ([id number]) [address] [place] [address] WBC (Bld) [#/Vol] 9.7 10*3/uL Normal 4.0-11.0 [facility] Comment on above: Performed By: #### C LANA, 12809-7, , CBCA #### [facility] ([id number]) [address] [place] [address] COMPREHENSIVE METABOLIC PANE Meek 04-28-2023 Albumin [Mass/Vol] 3.8 g/dL Normal 3.2-5.3 [facility] Comment on above: Performed By: #### C LANA, 93756-4, , CBCA #### [facility] ([id number]) [address] [place] [address] ALP [Catalytic activity/Vol] 80 U/L Normal 39-130 [facility] Comment on above: Performed By: #### C LANA, 42365-7, , CBCA #### [facility] ([id number]) [address] [place] [address] ALT [Catalytic activity/Vol] 49 U/L High 0-31 [facility] Comment on above: Performed By: #### C LANA, 56029-9, , CBCA #### [facility] ([id number]) [address] [place] [address] Anion gap [Moles/Vol] 11 mmol/L Normal 5-15 [facility] Comment on above: Performed By: #### C LANA, 37089-1, 52960-2, CBCA #### [facility] ([id number]) [address] [place] [address] AST [Catalytic activity/Vol] 26 U/L Normal 0-41 [facility] Comment on above: Performed By: #### C LANA, 59435-3, , CBCA #### [facility] ([id number]) [address] [place] [address] Bilirubin [Mass/Vol] 0.5 mg/dL Normal 0.3-1.2 [facility] Comment on above: Performed By: #### C LANA, 46295-7, , CBCA #### [facility] ([id number]) [address] [place] [address] Calcium [Mass/Vol] 10.8 mg/dL High 8.5-10.5 [facility] Comment on above: Performed By: #### C LANA, 96963-1, , CBCA #### [facility] ([id number]) [address] [place] [address] Chloride [Moles/Vol] 109 mmol/L Normal 98-109 [facility] Comment on above: Performed By: #### C LANA, 21944-7, , CBCA #### [facility] ([id number]) [address] [place] [address] CO2 [Moles/Vol] 20 mmol/L Low 22-32 [facility] Comment on above: Performed By: #### C LANA, 34864-7, , CBCA #### [facility] ([id number]) [address] [place] [address] Creatinine [Mass/Vol] 1.00 mg/dL Normal 0.40-1.00 [facility] Comment on above: Result Comment: METH OD TRACEABLE TO IDMS STANDARD Performed By: #### C LANA, 35200-3, , CBCA #### [facility] ([id number]) [address] [place] [address] GFR/1.73 sq M.predicted among non-blacks MDRD (S/P/Bld) [Vol rate/Area] 64 mL/min/{1.73_m2} Normal >59 [facility] Comment on above: Result Comment: Reported eGFR is based on the CKD-EPI 2020 equation that does not use a race coefficient. Performed By: #### C LANA, 85052-3, , CBCA #### [facility] ([id number]) [address] [place] [address] Glucose [Mass/Vol] 144 mg/dL High 65-99 [facility] Comment on above: Performed By: #### C LANA, 83230-6, , CBCA #### [facility] ([id number]) [address] [place] [address] Potassium [Moles/Vol] 3.9 mmol/L Normal 3.5-5.0 [facility] Comment on above: Performed By: #### C LANA, 68798-0, , CBCA #### [facility] ([id number]) [address] [place] [address] Protein [Mass/Vol] 8.7 g/dL High 6.0-8.0 [facility] Comment on above: Performed By: #### C LANA, 64602-2, , CBCA #### [facility] ([id number]) [address] [place] [address] Sodium [Moles/Vol] 140 mmol/L Normal 134-146 [facility] Comment on above: Performed By: #### C LANA, 68115-3, , CBCA #### [facility] ([id number]) [address] [place] [address] Urea nitrogen [Mass/Vol] 24 mg/dL High 5-23 [facility] Comment on above: Performed By: #### C LANA, 42730-6, , CBCA #### [facility] ([id number]) [address] [place] [address] Glucose Glucometer (BldC) [M ass/Vol]on 01-02-2024 Glucose [Mass/Vol] 138 mg/dL High 65-99 [facility] Glucose [Mass/Vol] 175 mg/dL High 65-99 [facility] MAGNESIUMon 04-28-2023 Magnesium [Mass/Vol] 2.6 mg/dL Normal 1.8-2.6 [facility] Comment on above: Performed By: #### C LANA, 78187-3, , CBCA #### [facility] ([id number]) [address] [place] [address] POTASSIUMon 04-28-2023 Potassium [Moles/Vol] 3.9 mmol/L Normal 3.5-5.0 [facility] Comment on above: Performed By: #### C LANA, 33594-4, , CBCA #### [facility] ([id number]) [address] [place] [address] XR CHEST 1 VWon 04-28-2023 XR CHEST 1 VW XR CHEST 1 VW Clinical History: Pneumonia. Portable Upright chest: 04/28/2023 Comparison: 04/23/2023 Findings: A single portable view of the chest was obtained. There is strandy density in the lower lungs with interval improvement. No pneumothorax or definite pleural effusion is a. Mediastinal contours are stable IMPRESSION: Basilar opacities compatible with atelectasis. Finalized by Saurabh Anderson MD on 04/28/2023 9:57 AM Normal [facility] BLOOD CULTUREon 04-27-2023 Bacteria identified Aer cx Nom (Bld) CULTURE RESULTS NO GROWTH 5 DAYS Normal [facility] Bacteria identified Aer cx Nom (Bld) CULTURE RESULTS NO GROWTH 5 DAYS Normal [facility] CBC AND AUTO DIFFon 04-27-19 24 ABSOLUTE BASOPHIL 0.2 X10E9/L Normal 0.0-0.2 [facility] Comment on above: Performed By: #### C LANA, 95762-4, , CBCA #### [facility] ([id number]) [address] [place] [address] ABSOLUTE NEUTROPHIL 3.9 X10E9/L Normal 1.5-6.6 [facility] Comment on above: Performed By: #### C LANA, 98952-6, , CBCA #### [facility] ([id number]) [address] [place] [address] Basophils/100 WBC (Bld) 2.9 % Normal [facility] Comment on above: Performed By: #### C LANA, 93932-2, , CBCA #### [facility] ([id number]) [address] [facility] [place] [address] Eosinophils (Bld) [#/Vol] 0.1 10*3/uL Normal 0.0-0.4 [facility] Comment on above: Performed By: #### C LANA, 09564-1, , CBCA #### [facility] ([id number]) [address] [place] [address] Eosinophils/100 WBC (Bld) 1.7 % Normal [facility] Comment on above: Performed By: #### C LANA, 77291-8, , CBCA #### [facility] ([id number]) [address] [place] [address] Erythrocyte distribution width (RBC) [Ratio] 17.7 % High 11.5-15.0 [facility] Comment on above: Performed By: #### C LANA, 83266-1, , CBCA #### [facility] ([id number]) [address] [place] [address] Hematocrit (Bld) [Volume fraction] 38.8 % Normal 35-47 [facility] Comment on above: Performed By: #### C LANA, 22941-7, , CBCA #### [facility] ([id number]) [address] [place] [address] Hemoglobin (Bld) [Mass/Vol] 12.7 g/dL Normal 11.7-15.5 [facility] Comment on above: Performed By: #### C LANA, 03223-4, , CBCA #### [facility] ([id number]) [address] [place] [address] Lymphocytes (Bld) [#/Vol] 1.7 10*3/uL Normal 1.0-3.5 [facility] Comment on above: Performed By: #### C LANA, 24907-5, , CBCA #### [facility] ([id number]) [address] [place] [address] Lymphocytes/100 WBC (Bld) 26.3 % Normal [facility] Comment on above: Performed By: #### C LANA, 09031-0, , CBCA #### [facility] ([id number]) [address] [place] [address] MCH (RBC) [Entitic mass] 28.2 pg Normal 27-34 [facility] Comment on above: Performed By: #### Javid SCHWARTZ, 67054-6, , CBCA #### [facility] ([id number]) [address] [place] [address] MCHC (RBC) [Mass/Vol] 32.7 g/dL Normal 32-36 [facility] Comment on above: Performed By: #### Javid SCHWARTZ, 07174-0, , CBCA #### [facility] ([id number]) [address] [place] [address] MCV (RBC) [Entitic vol] 86 fL Normal 80-100 [facility] Comment on above: Performed By: #### C LANA, 12604-0, , CBCA #### [facility] ([id number]) [address] [place] [address] Monocytes (Bld) [#/Vol] 0.7 10*3/uL Normal 0-0.9 [facility] Comment on above: Performed By: #### C LANA, 57548-9, , CBCA #### [facility] ([id number]) [address] [place] [address] Monocytes/100 WBC (Bld) 10.1 % Normal [facility] Comment on above: Performed By: #### C LANA, 68413-2, , CBCA #### [facility] ([id number]) [address] [place] [address] Neutrophils/100 WBC (Bld) 59.0 % Normal [facility] Comment on above: Performed By: #### C LANA, 18115-7, , CBCA #### [facility] ([id number]) [address] [place] [address] Platelet mean volume (Bld) [Entitic vol] 8.1 fL Normal 7-12 [facility] Comment on above: Performed By: #### C LANA, 43012-6, , CBCA #### [facility] ([id number]) [address] [place] [address] Platelets (Bld) [#/Vol] 364 10*3/uL Normal 150-450 [facility] Comment on above: Performed By: #### C LANA, 99114-7, , CBCA #### [facility] ([id number]) [address] [place] [address] RBC COUNT 4.49 X10E12/L Normal 3.80-5.20 [facility] Comment on above: Performed By: #### C LANA, 07050-5, , CBCA #### [facility] ([id number]) [address] [place] [address] WBC (Bld) [#/Vol] 6.6 10*3/uL Normal 4.0-11.0 [facility] Comment on above: Performed By: #### C LANA, 98666-3, , CBCA #### [facility] ([id number]) [address] [place] [address] COMPREHENSIVE METABOLIC PANE Meek 04-27-2023 Albumin [Mass/Vol] 3.7 g/dL Normal 3.2-5.3 [facility] Comment on above: Performed By: #### C , 75643-9, 37615-5, CBCA #### [facility] ([id number]) [address] [place] [address] ALP [Catalytic activity/Vol] 74 U/L Normal 39-130 [facility] Comment on above: Performed By: #### C , 30190-1, 82778-4, CBCA #### [facility] ([id number]) [address] [place] [address] ALT [Catalytic activity/Vol] 47 U/L High 0-31 [facility] Comment on above: Performed By: #### C , 08011-0, , CBCA #### [facility] ([id number]) [address] [place] [address] Anion gap [Moles/Vol] 12 mmol/L Normal 5-15 [facility] Comment on above: Performed By: #### C LANA, 50944-9, , CBCA #### [facility] ([id number]) [address] [place] [address] AST [Catalytic activity/Vol] 29 U/L Normal 0-41 [facility] Comment on above: Performed By: #### C LANA, 51112-5, , CBCA #### [facility] ([id number]) [address] [place] [address] Bilirubin [Mass/Vol] 0.6 mg/dL Normal 0.3-1.2 [facility] Comment on above: Performed By: #### C , 55223-9, , CBCA #### [facility] ([id number]) [address] [place] [address] Calcium [Mass/Vol] 10.3 mg/dL Normal 8.5-10.5 [facility] Comment on above: Performed By: #### C MP, 48436-6, 86307-1, CBCA #### [facility] ([id number]) [address] [place] [address] Chloride [Moles/Vol] 108 mmol/L Normal 98-109 [facility] Comment on above: Performed By: #### C LANA, 25994-5, , CBCA #### [facility] ([id number]) [address] [place] [address] CO2 [Moles/Vol] 21 mmol/L Low 22-32 [facility] Comment on above: Performed By: #### C LANA, 29905-1, , CBCA #### [facility] ([id number]) [address] [place] [address] Creatinine [Mass/Vol] 1.03 mg/dL High 0.40-1.00 [facility] Comment on above: Result Comment: METH OD TRACEABLE TO IDMS STANDARD Performed By: #### C LANA, 91445-2, , CBCA #### [facility] ([id number]) [address] [place] [address] GFR/1.73 sq M.predicted among non-blacks MDRD (S/P/Bld) [Vol rate/Area] 62 mL/min/{1.73_m2} Normal >59 [facility] Comment on above: Result Comment: Reported eGFR is based on the CKD-EPI 2020 equation that does not use a race coefficient. Performed By: #### C LANA, 65776-9, , CBCA #### [facility] ([id number]) [address] [place] [address] Glucose [Mass/Vol] 121 mg/dL High 65-99 [facility] Comment on above: Performed By: #### C LANA, 14654-2, , CBCA #### [facility] ([id number]) [address] [place] [address] Potassium [Moles/Vol] 3.3 mmol/L Low 3.5-5.0 [facility] Comment on above: Performed By: #### C LANA, 77234-7, , CBCA #### [facility] ([id number]) [address] [place] [address] Protein [Mass/Vol] 8.3 g/dL High 6.0-8.0 [facility] Comment on above: Performed By: #### C LANA, 60507-2, , CBCA #### [facility] ([id number]) [address] [place] [address] Sodium [Moles/Vol] 141 mmol/L Normal 134-146 [facility] Comment on above: Performed By: #### C LANA, 12321-7, , CBCA #### [facility] ([id number]) [address] [place] [address] Urea nitrogen [Mass/Vol] 17 mg/dL Normal 5-23 [facility] Comment on above: Performed By: #### Javid SCHWARTZ, 28846-7, , CBCA #### [facility] ([id number]) [address] [place] [address] Glucose Glucometer (BldC) [M ass/Vol]on 04-27-2023 Glucose [Mass/Vol] 127 mg/dL High 65-99 [facility] Glucose [Mass/Vol] 119 mg/dL High 65-99 [facility] Glucose [Mass/Vol] 132 mg/dL High 65-99 [facility] Glucose [Mass/Vol] 119 mg/dL High 65-99 [facility] MAGNESIUMon 04-27-2023 Magnesium [Mass/Vol] 2.5 mg/dL Normal 1.8-2.6 [facility] Comment on above: Performed By: #### C LANA, 04984-5, , CBCA #### [facility] ([id number]) [address] [place] [address] POTASSIUMon 04-27-2023 Potassium [Moles/Vol] 3.7 mmol/L Normal 3.5-5.0 [facility] Comment on above: Performed By: #### C LANA, 32988-3, , CBCA #### [facility] ([id number]) [address] [place] [address] CBC AND AUTO DIFFon 04-26-20 ABSOLUTE BASOPHIL 0.1 X10E9/L Normal 0.0-0.2 [facility] Comment on above: Performed By: #### C LANA, 10599-6, , CBCA #### [facility] ([id number]) [address] [place] [address] ABSOLUTE NEUTROPHIL 4.2 X10E9/L Normal 1.5-6.6 [facility] Comment on above: Performed By: #### C LANA, 91255-2, , CBCA #### [facility] ([id number]) [address] [place] [address] Basophils/100 WBC (Bld) 1.1 % Normal [facility] Comment on above: Performed By: #### C , 47495-2, , CBCA #### [facility] ([id number]) [address] [place] [address] Eosinophils (Bld) [#/Vol] 0.0 10*3/uL Normal 0.0-0.4 [facility] Comment on above: Performed By: #### C LANA, 04011-5, , CBCA #### [facility] ([id number]) [address] [place] [address] Eosinophils/100 WBC (Bld) 0.4 % Normal [facility] Comment on above: Performed By: #### C , 83855-3, , CBCA #### [facility] ([id number]) [address] [place] [address] Erythrocyte distribution width (RBC) [Ratio] 17.3 % High 11.5-15.0 [facility] Comment on above: Performed By: #### C , 53395-4, , CBCA #### [facility] ([id number]) [address] [place] [address] Hematocrit (Bld) [Volume fraction] 32.3 % Low 35-47 [facility] Comment on above: Performed By: #### C LANA, 56972-7, , CBCA #### [facility] ([id number]) [address] [place] [address] Hemoglobin (Bld) [Mass/Vol] 10.2 g/dL Low 11.7-15.5 [facility] Comment on above: Performed By: #### C LANA, 35043-3, , CBCA #### [facility] ([id number]) [address] [place] [address] Lymphocytes (Bld) [#/Vol] 1.7 10*3/uL Normal 1.0-3.5 [facility] Comment on above: Performed By: #### Javid SCHWARTZ, 47861-1, , CBCA #### [facility] ([id number]) [address] [place] [address] Lymphocytes/100 WBC (Bld) 25.7 % Normal [facility] Comment on above: Performed By: #### Javid SCHWARTZ, 77403-0, , CBCA #### [facility] ([id number]) [address] [place] [address] MCH (RBC) [Entitic mass] 27.3 pg Normal 27-34 [facility] Comment on above: Performed By: #### C LANA, 90788-8, , CBCA #### [facility] ([id number]) [address] [place] [address] MCHC (RBC) [Mass/Vol] 31.6 g/dL Low 32-36 [facility] Comment on above: Performed By: #### C LANA, 70720-0, , CBCA #### [facility] ([id number]) [address] [place] [address] MCV (RBC) [Entitic vol] 86 fL Normal 80-100 [facility] Comment on above: Performed By: #### C MP, 88409-1, , CBCA #### [facility] ([id number]) [address] [place] [address] Monocytes (Bld) [#/Vol] 0.6 10*3/uL Normal 0-0.9 [facility] Comment on above: Performed By: #### C MP, 87525-4, 41823-9, CBCA #### [facility] ([id number]) [address] [place] [address] Monocytes/100 WBC (Bld) 9.2 % Normal [facility] Comment on above: Performed By: #### C MP, 94922-5, , CBCA #### [facility] ([id number]) [address] [place] [address] Neutrophils/100 WBC (Bld) 63.6 % Normal [facility] Comment on above: Performed By: #### C MP, 69626-7, , CBCA #### [facility] ([id number]) [address] [place] [address] Platelet mean volume (Bld) [Entitic vol] 8.4 fL Normal 7-12 [facility] Comment on above: Performed By: #### C LANA, 58389-0, , CBCA #### [facility] ([id number]) [address] [place] [address] Platelets (Bld) [#/Vol] 334 10*3/uL Normal 150-450 [facility] Comment on above: Performed By: #### C MP, 36908-8, , CBCA #### [facility] ([id number]) [address] [place] [address] RBC COUNT 3.74 X10E12/L Low 3.80-5.20 [facility] Comment on above: Performed By: #### C MP, 78849-6, , CBCA #### [facility] ([id number]) [address] [place] [address] WBC (Bld) [#/Vol] 6.7 10*3/uL Normal 4.0-11.0 [facility] Comment on above: Performed By: #### C LANA, 09669-0, , CBCA #### [facility] ([id number]) [address] [place] [address] COMPREHENSIVE METABOLIC PANE [facility] 04-26-2023 Albumin [Mass/Vol] 2.9 g/dL Low 3.2-5.3 [facility] Comment on above: Performed By: #### C LANA, 87812-0, , CBCA #### [facility] ([id number]) [address] [place] [address] ALP [Catalytic activity/Vol] 55 U/L Normal 39-130 [facility] Comment on above: Performed By: #### C LANA, 76830-3, , CBCA #### [facility] ([id number]) [address] [place] [address] ALT [Catalytic activity/Vol] 33 U/L High 0-31 [facility] Comment on above: Performed By: #### C LANA, 23873-9, , CBCA #### [facility] ([id number]) [address] [place] [address] Anion gap [Moles/Vol] 5 mmol/L Normal 5-15 [facility] Comment on above: Performed By: #### C LANA, 70993-4, , CBCA #### [facility] ([id number]) [address] [place] [address] AST [Catalytic activity/Vol] 21 U/L Normal 0-41 [facility] Comment on above: Performed By: #### C LANA, 30969-0, 30142-3, CBCA #### [facility] ([id number]) [address] [place] [address] Bilirubin [Mass/Vol] 0.6 mg/dL Normal 0.3-1.2 [facility] Comment on above: Performed By: #### C LANA, 81189-3, , CBCA #### [facility] ([id number]) [address] [place] [address] Calcium [Mass/Vol] 9.3 mg/dL Normal 8.5-10.5 [facility] Comment on above: Performed By: #### C LANA, 09746-2, , CBCA #### [facility] ([id number]) [address] [place] [address] Chloride [Moles/Vol] 117 mmol/L High 98-109 [facility] Comment on above: Performed By: #### C LANA, 44409-2, , CBCA #### [facility] ([id number]) [address] [place] [address] CO2 [Moles/Vol] 20 mmol/L Low 22-32 [facility] Comment on above: Performed By: #### C LANA, 42758-8, , CBCA #### [facility] ([id number]) [address] [place] [address] Creatinine [Mass/Vol] 0.59 mg/dL Normal 0.40-1.00 [facility] Comment on above: Result Comment: METH OD TRACEABLE TO IDMS STANDARD Performed By: #### C LANA, 23308-6, , CBCA #### [facility] ([id number]) [address] [place] [address] eGFR (CKD-EPI) NON-RACE DEPENDENT >90 Normal >59 [facility] Comment on above: Result Comment: Reported eGFR is based on the CKD-EPI 2020 equation that does not use a race coefficient. Performed By: #### C LANA, 72091-2, , CBCA #### [facility] ([id number]) [address] [place] [address] Glucose [Mass/Vol] 95 mg/dL Normal 65-99 [facility] Comment on above: Performed By: #### C LANA, 17951-6, , CBCA #### [facility] ([id number]) [address] [place] [address] Potassium [Moles/Vol] 3.4 mmol/L Low 3.5-5.0 [facility] Comment on above: Performed By: #### C LANA, 60678-6, , CBCA #### [facility] ([id number]) [address] [place] [address] Protein [Mass/Vol] 6.6 g/dL Normal 6.0-8.0 [facility] Comment on above: Performed By: #### C LANA, 55729-7, , CBCA #### [facility] ([id number]) [address] [place] [address] Sodium [Moles/Vol] 142 mmol/L Normal 134-146 [facility] Comment on above: Performed By: #### C LANA, 14890-6, , CBCA #### [facility] ([id number]) [address] [place] [address] Urea nitrogen [Mass/Vol] 12 mg/dL Normal 5-23 [facility] Comment on above: Performed By: #### C LANA, 80232-9, , CBCA #### [facility] ([id number]) [address] [place] [address] Glucose Glucometer (dC) [M ass/Vol]on 04-26-2023 Glucose [Mass/Vol] 111 mg/dL High 65-99 [facility] Glucose [Mass/Vol] 118 mg/dL High 65-99 [facility] Glucose [Mass/Vol] 225 mg/dL High 65-99 [facility] Glucose [Mass/Vol] 105 mg/dL High 65-99 [facility] MAGNESIUMon 04-26-2023 Magnesium [Mass/Vol] 2.2 mg/dL Normal 1.8-2.6 [facility] Comment on above: Performed By: #### C LANA, 46496-5, , CBCA #### [facility] ([id number]) [address] [place] [address] POTASSIUMon 04-26-2023 Potassium [Moles/Vol] 4.0 mmol/L Normal 3.5-5.0 [facility] Comment on above: Performed By: #### C LANA, 17007-1, , CBCA #### [facility] ([id number]) [address] [place] [address] BASIC METABOLIC PANLon 04-25 Anion gap [Moles/Vol] 6 mmol/L Normal 5-15 [facility] Comment on above: Performed By: #### C LANA, 17242-0, , CBCA #### [facility] ([id number]) [address] [place] [address] Calcium [Mass/Vol] 9.6 mg/dL Normal 8.5-10.5 [facility] Comment on above: Performed By: #### C LANA, 66265-2, , CBCA #### [facility] ([id number]) [address] [place] [address] Chloride [Moles/Vol] 115 mmol/L High 98-109 [facility] Comment on above: Performed By: #### C LANA, 45020-1, , CBCA #### [facility] ([id number]) [address] [place] [address] CO2 [Moles/Vol] 18 mmol/L Low 22-32 [facility] Comment on above: Performed By: #### C LANA, 08590-8, , CBCA #### [facility] ([id number]) [address] [place] [address] Creatinine [Mass/Vol] 0.56 mg/dL Normal 0.40-1.00 [facility] Comment on above: Result Comment: METH OD TRACEABLE TO IDMS STANDARD Performed By: #### C LANA, 12597-0, , CBCA #### [facility] ([id number]) [address] [place] [address] eGFR (CKD-EPI) NON-RACE DEPENDENT >90 Normal >59 [facility] Comment on above: Result Comment: Reported eGFR is based on the CKD-EPI 2020 equation that does not use a race coefficient. Performed By: #### C LANA, 70327-6, , CBCA #### [facility] ([id number]) [address] [place] [address] Glucose [Mass/Vol] 86 mg/dL Normal 65-99 [facility] Comment on above: Performed By: #### C LANA, 04263-2, , CBCA #### [facility] ([id number]) [address] [place] [address] Potassium [Moles/Vol] 3.5 mmol/L Normal 3.5-5.0 [facility] Comment on above: Performed By: #### C LANA, 75821-1, , CBCA #### [facility] ([id number]) [address] [place] [address] Sodium [Moles/Vol] 139 mmol/L Normal 134-146 [facility] Comment on above: Performed By: #### C LANA, 13104-4, , CBCA #### [facility] ([id number]) [address] [place] [address] Urea nitrogen [Mass/Vol] 14 mg/dL Normal 5-23 [facility] Comment on above: Performed By: #### C LANA, 04691-3, , CBCA #### [facility] ([id number]) [address] [place] [address] COMPLETE BLOOD COUNTon 04-25 Erythrocyte distribution width (RBC) [Ratio] 18.1 % High 11.5-15.0 [facility] Comment on above: Performed By: #### C LANA, 96757-5, , CBCA #### [facility] ([id number]) [address] [place] [address] Hematocrit (Bld) [Volume fraction] 32.2 % Low 35-47 [facility] Comment on above: Performed By: #### C LANA, 02121-4, , CBCA #### [facility] ([id number]) [address] [place] [address] Hemoglobin (Bld) [Mass/Vol] 10.1 g/dL Low 11.7-15.5 [facility] Comment on above: Performed By: #### C LANA, 44550-2, , CBCA #### [facility] ([id number]) [address] [place] [address] MCH (RBC) [Entitic mass] 27.4 pg Normal 27-34 [facility] Comment on above: Performed By: #### C LANA, 65238-1, , CBCA #### [facility] ([id number]) [address] [place] [address] MCHC (RBC) [Mass/Vol] 31.5 g/dL Low 32-36 [facility] Comment on above: Performed By: #### C LANA, 10729-8, , CBCA #### [facility] ([id number]) [address] [place] [address] MCV (RBC) [Entitic vol] 87 fL Normal 80-100 [facility] Comment on above: Performed By: #### C LANA, 16891-5, , CBCA #### [facility] ([id number]) [address] [place] [address] Platelet mean volume (Bld) [Entitic vol] 8.7 fL Normal 7-12 [facility] Comment on above: Performed By: #### C LANA, 94417-8, , CBCA #### [facility] ([id number]) [address] [place] [address] Platelets (Bld) [#/Vol] 343 10*3/uL Normal 150-450 [facility] Comment on above: Performed By: #### C LANA, 21223-1, , CBCA #### [facility] ([id number]) [address] [place] [address] RBC COUNT 3.70 X10E12/L Low 3.80-5.20 [facility] Comment on above: Performed By: #### C LANA, 13200-2, , CBCA #### [facility] ([id number]) [address] [place] [address] WBC (Bld) [#/Vol] 7.6 10*3/uL Normal 4.0-11.0 [facility] Comment on above: Performed By: #### C LANA, 98423-3, , CBCA #### [facility] ([id number]) [address] [place] [address] Glucose Glucometer (dC) [M ass/Vol]on 04-25-2023 Glucose [Mass/Vol] 160 mg/dL High 65-99 [facility] Glucose [Mass/Vol] 126 mg/dL High 65-99 [facility] Glucose [Mass/Vol] 128 mg/dL High 65-99 [facility] Glucose [Mass/Vol] 158 mg/dL High 65-99 [facility] Glucose [Mass/Vol] 82 mg/dL Normal 65-99 [facility] Glucose [Mass/Vol] 93 mg/dL Normal 65-99 [facility] MAGNESIUMon 04-25-2023 Magnesium [Mass/Vol] 2.1 mg/dL Normal 1.8-2.6 [facility] Comment on above: Performed By: #### C LANA, 91341-2, , CBCA #### [facility] ([id number]) [address] [place] [address] PHOSPHORUSon 04-25-2023 Phosphate [Mass/Vol] 3.2 mg/dL Normal 2.4-4.9 [facility] Comment on above: Performed By: #### C LANA, 37577-6, , CBCA #### [facility] ([id number]) [address] [place] [address] POTASSIUMon 04-25-2023 Potassium [Moles/Vol] 3.7 mmol/L Normal 3.5-5.0 [facility] Comment on above: Performed By: #### C LANA, 67792-0, , CBCA #### [facility] ([id number]) [address] [place] [address] Vancomycin trough [Mass/Vol] on 04-25-2023 VANCOMYCIN TROUGH 22.7 ug/mL High 5.0-20.0 [facility] Comment on above: Performed By: #### C LANA, 61389-1, , CBCA #### [facility] ([id number]) [address] [place] [address] lamoTRIgine [Mass/Vol]on LAMOTRIGINE <0.5 Low 1.0-13.0 [facility] Comment on above: Result Comment: NOTE This test was developed and its performance characteristics determined by [facility] [place] ([facility]). It has not been cleared or approved by the FDA. [facility] is regulated under CLIA as qualified to perform high-complexity testing. This test is used for clinical purposes. It should not be regarded as investigational or for research. Test Performed By: [facility] [address] [place] [address] Performing Artist: Davian Holloway III, M.D. CLIA #[id number] Performed By: #### C LANA, 49070-5, , CBCA #### [facility] ([id number]) [address] [place] [address] BASIC METABOLIC PANLon 04-24 Anion gap [Moles/Vol] 9 mmol/L Normal 5-15 [facility] Comment on above: Performed By: #### C MP, 33572-3, , CBCA #### [facility] ([id number]) [address] [place] [address] Calcium [Mass/Vol] 9.9 mg/dL Normal 8.5-10.5 [facility] Comment on above: Performed By: #### C LANA, 12342-7, , CBCA #### [facility] ([id number]) [address] [place] [address] Chloride [Moles/Vol] 112 mmol/L High 98-109 [facility] Comment on above: Performed By: #### C LANA, 20825-3, , CBCA #### [facility] ([id number]) [address] [place] [address] CO2 [Moles/Vol] 17 mmol/L Low 22-32 [facility] Comment on above: Performed By: #### C LANA, 22638-8, , CBCA #### [facility] ([id number]) [address] [place] [address] Creatinine [Mass/Vol] 0.68 mg/dL Normal 0.40-1.00 [facility] Comment on above: Result Comment: METH OD TRACEABLE TO IDMS STANDARD Performed By: #### C LANA, 15697-9, , CBCA #### [facility] ([id number]) [address] [place] [address] eGFR (CKD-EPI) NON-RACE DEPENDENT >90 Normal >59 [facility] Comment on above: Result Comment: Reported eGFR is based on the CKD-EPI 2020 equation that does not use a race coefficient. Performed By: #### C LANA, 42719-2, , CBCA #### [facility] ([id number]) [address] [place] [address] Glucose [Mass/Vol] 134 mg/dL High 65-99 [facility] Comment on above: Performed By: #### C LANA, 49771-8, , CBCA #### [facility] ([id number]) [address] [place] [address] Potassium [Moles/Vol] 4.2 mmol/L Normal 3.5-5.0 [facility] Comment on above: Performed By: #### C LANA, 97424-2, 47556-1, CBCA #### [facility] ([id number]) [address] [place] [address] Sodium [Moles/Vol] 138 mmol/L Normal 134-146 [facility] Comment on above: Performed By: #### C LANA, 87651-9, , CBCA #### [facility] ([id number]) [address] [place] [address] Urea nitrogen [Mass/Vol] 15 mg/dL Normal 5-23 [facility] Comment on above: Performed By: #### C LANA, 63439-3, , CBCA #### [facility] ([id number]) [address] [place] [address] CBC AND AUTO DIFFon 04-24-20 23 ABSOLUTE BASOPHIL 0.1 X10E9/L Normal 0.0-0.2 [facility] Comment on above: Performed By: #### C LANA, 05274-6, , CBCA #### [facility] ([id number]) [address] [place] [address] ABSOLUTE NEUTROPHIL 5.1 X10E9/L Normal 1.5-6.6 [facility] Comment on above: Performed By: #### C MP, 96705-6, , CBCA #### [facility] ([id number]) [address] [place] [address] Basophils/100 WBC (Bld) 1.0 % Normal [facility] Comment on above: Performed By: #### C LANA, 45585-6, 27048-1, CBCA #### [facility] ([id number]) [address] [place] [address] Eosinophils (Bld) [#/Vol] 0.0 10*3/uL Normal 0.0-0.4 [facility] Comment on above: Performed By: #### C LANA, 76925-5, , CBCA #### [facility] ([id number]) [address] [place] [address] Eosinophils/100 WBC (Bld) 0.5 % Normal [facility] Comment on above: Performed By: #### C LANA, 10824-5, , CBCA #### [facility] ([id number]) [address] [place] [address] Erythrocyte distribution width (RBC) [Ratio] 17.4 % High 11.5-15.0 [facility] Comment on above: Performed By: #### C LANA, 00849-0, , CBCA #### [facility] ([id number]) [address] [place] [address] Hematocrit (Bld) [Volume fraction] 31.9 % Low 35-47 [facility] Comment on above: Performed By: #### C LANA, 01186-7, , CBCA #### [facility] ([id number]) [address] [place] [address] Hemoglobin (Bld) [Mass/Vol] 9.8 g/dL Low 11.7-15.5 [facility] Comment on above: Performed By: #### C LANA, 82563-3, , CBCA #### [facility] ([id number]) [address] [place] [address] Lymphocytes (Bld) [#/Vol] 2.5 10*3/uL Normal 1.0-3.5 [facility] Comment on above: Performed By: #### C LANA, 89647-2, , CBCA #### [facility] ([id number]) [address] [place] [address] Lymphocytes/100 WBC (Bld) 28.0 % Normal [facility] Comment on above: Performed By: #### C LANA, 12578-1, 44226-3, CBCA #### [facility] ([id number]) [address] [place] [address] MCH (RBC) [Entitic mass] 27.0 pg Normal 27-34 [facility] Comment on above: Performed By: #### C LANA, 70294-9, 50689-9, CBCA #### [facility] ([id number]) [address] [place] [address] MCHC (RBC) [Mass/Vol] 30.8 g/dL Low 32-36 [facility] Comment on above: Performed By: #### C LANA, 88813-9, , CBCA #### [facility] ([id number]) [address] [place] [address] MCV (RBC) [Entitic vol] 88 fL Normal 80-100 [facility] Comment on above: Performed By: #### C LANA, 39343-4, , CBCA #### [facility] ([id number]) [address] [place] [address] Monocytes (Bld) [#/Vol] 1.1 10*3/uL High 0-0.9 [facility] Comment on above: Performed By: #### C LANA, 74973-8, , CBCA #### [facility] ([id number]) [address] [place] [address] Monocytes/100 WBC (Bld) 12.1 % Normal [facility] Comment on above: Performed By: #### C LANA, 49240-3, , CBCA #### [facility] ([id number]) [address] [place] [address] Neutrophils/100 WBC (Bld) 58.4 % Normal [facility] Comment on above: Performed By: #### C LANA, 04040-3, 03206-4, CBCA #### [facility] ([id number]) [address] [place] [address] Platelet mean volume (Bld) [Entitic vol] 7.8 fL Normal 7-12 [facility] Comment on above: Performed By: #### C LANA, 71668-6, , CBCA #### [facility] ([id number]) [address] [place] [address] Platelets (Bld) [#/Vol] 322 10*3/uL Normal 150-450 [facility] Comment on above: Performed By: #### C LANA, 06091-1, , CBCA #### [facility] ([id number]) [address] [place] [address] RBC COUNT 3.64 X10E12/L Low 3.80-5.20 [facility] Comment on above: Performed By: #### C LANA, 85370-2, , CBCA #### [facility] ([id number]) [address] [place] [address] WBC (Bld) [#/Vol] 8.8 10*3/uL Normal 4.0-11.0 [facility] Comment on above: Performed By: #### C LANA, 77258-0, , CBCA #### [facility] ([id number]) [address] [place] [address] COMPREHENSIVE METABOLIC PANE Meek 04-24-2023 Albumin [Mass/Vol] 2.9 g/dL Low 3.2-5.3 [facility] Comment on above: Performed By: #### C LANA, 44412-2, , CBCA #### [facility] ([id number]) [address] [place] [address] ALP [Catalytic activity/Vol] 52 U/L Normal 39-130 [facility] Comment on above: Performed By: #### C LANA, 58829-7, 68518-0, CBCA #### [facility] ([id number]) [address] [place] [address] ALT [Catalytic activity/Vol] 21 U/L Normal 0-31 [facility] Comment on above: Performed By: #### C LANA, 14659-4, , CBCA #### [facility] ([id number]) [address] [place] [address] Anion gap [Moles/Vol] 8 mmol/L Normal 5-15 [facility] Comment on above: Performed By: #### C LANA, 55754-4, , CBCA #### [facility] ([id number]) [address] [place] [address] AST [Catalytic activity/Vol] 22 U/L Normal 0-41 [facility] Comment on above: Performed By: #### C LANA, 92595-7, , CBCA #### [facility] ([id number]) [address] [place] [address] Bilirubin [Mass/Vol] 0.8 mg/dL Normal 0.3-1.2 [facility] Comment on above: Performed By: #### C LANA, 65720-1, , CBCA #### [facility] ([id number]) [address] [place] [address] Calcium [Mass/Vol] 9.4 mg/dL Normal 8.5-10.5 [facility] Comment on above: Performed By: #### C LANA, 66645-3, , CBCA #### [facility] ([id number]) [address] [place] [address] Chloride [Moles/Vol] 117 mmol/L High 98-109 [facility] Comment on above: Performed By: #### C LANA, 94572-6, , CBCA #### [facility] ([id number]) [address] [place] [address] CO2 [Moles/Vol] 18 mmol/L Low 22-32 [facility] Comment on above: Performed By: #### C LANA, 95150-4, , CBCA #### [facility] ([id number]) [address] [place] [address] Creatinine [Mass/Vol] 0.59 mg/dL Normal 0.40-1.00 [facility] Comment on above: Result Comment: METH OD TRACEABLE TO IDMS STANDARD Performed By: #### C LANA, 99910-8, 55924-4, CBCA #### [facility] ([id number]) [address] [place] [address] Glucose [Mass/Vol] 90 mg/dL Normal 65-99 [facility] Comment on above: Performed By: #### C LANA, 65885-1, 23739-9, CBCA #### [facility] ([id number]) [address] [place] [address] Potassium [Moles/Vol] 3.6 mmol/L Normal 3.5-5.0 [facility] Comment on above: Performed By: #### C LANA, 08142-8, , CBCA #### [facility] ([id number]) [address] [place] [address] Protein [Mass/Vol] 6.9 g/dL Normal 6.0-8.0 [facility] Comment on above: Performed By: #### C LANA, 34761-5, , CBCA #### [facility] ([id number]) [address] [place] [address] Sodium [Moles/Vol] 143 mmol/L Normal 134-146 [facility] Comment on above: Performed By: #### C LANA, 94023-8, , CBCA #### [facility] ([id number]) [address] [place] [address] Calcium.ionized (Bld) [Moles /Vol]on 04-24-2023 [facility] 5.5 mg/dL High 4.5-5.3 [facility] Comment on above: Performed By: #### C LANA, 63871-3, , CBCA #### [facility] ([id number]) [address] [place] [address] Glucose Glucometer (BldC) [M ass/Vol]on 04-24-2023 Glucose [Mass/Vol] 87 mg/dL Normal 65-99 [facility] Glucose [Mass/Vol] 82 mg/dL Normal 65-99 [facility] Glucose [Mass/Vol] 90 mg/dL Normal 65-99 [facility] MAGNESIUMon 04-24-2023 Magnesium [Mass/Vol] 2.0 mg/dL Normal 1.8-2.6 [facility] Comment on above: Performed By: #### C LANA, 42163-6, 01105-5, CBCA #### [facility] ([id number]) [address] [place] [address] PHOSPHORUSon 04-24-2023 Phosphate [Mass/Vol] 3.4 mg/dL Normal 2.4-4.9 [facility] Comment on above: Performed By: #### C LANA, 60036-3, , CBCA #### [facility] ([id number]) [address] [place] [address] POTASSIUMon 04-24-2023 Potassium [Moles/Vol] 3.5 mmol/L Normal 3.5-5.0 [facility] Comment on above: Performed By: #### C LANA, 67570-0, 32452-8, CBCA #### [facility] ([id number]) [address] [place] [address] Potassium [Moles/Vol] 3.7 mmol/L Normal 3.5-5.0 [facility] Comment on above: Performed By: #### C LANA, 37851-2, 44915-1, CBCA #### [facility] ([id number]) [address] [place] [address] ARTERIAL BLOOD GASon 023 RAVINDRA'S TEST Pass Normal [facility] Comment on above: Performed By: #### A BG ####[facility] ([id number])[address] [place] [address] BASE,DEFICIT 4.0 MMOL/L High 0.0-2.0 [facility] Comment on above: Performed By: #### A BG ####[facility] ([id number])[address] [place] [address] Body temperature 98.6 [degF] Normal 37.0 [facility] Comment on above: Performed By: #### A BG ####[facility] ([id number])[facility] [place] [address] HCO3 (Bld) [Moles/Vol] 21.0 mmol/L Low 22-26 [facility] Comment on above: Performed By: #### A BG ####[facility] ([id number])[address] [place] [address] INSP. O2 CONC. 40 % Normal [facility] Comment on above: Performed By: #### A BG ####[facility] ([id number])[address] [place] [address] Oxygen (Bld) [Partial pressure] 76 mm[Hg] Low 80-100 [facility] Comment on above: Performed By: #### A BG ####[facility] ([id number])[address] [place] [address] Oxygen saturation in Blood 95.0 % Normal >90 [facility] Comment on above: Performed By: #### A BG ####[facility] ([id number])[address] [place] [address] OXYGEN SOURCE Vent Normal [facility] Comment on above: Performed By: #### A BG ####[facility] ([id number])[facility] [place] [address] PCO2 37.0 MMHG Normal 35-45 [facility] Comment on above: Performed By: #### A BG ####[facility] ([id number])[address] [place] [address] pH (Bld) 7.362 [pH] Normal 7.350-7.45 0 [facility] Comment on above: Performed By: #### A BG ####[facility] ([id number])[address] [place] [address] SAMPLE SITE RBrach Normal [facility] Comment on above: Performed By: #### A BG ####[facility] ([id number])[address] [place] [address] SAMPLE TYPE ARTERIAL Normal [facility] Comment on above: Performed By: #### A BG ####[facility] ([id number])[address] [place] [address] BLOOD CULTUREon 04-23-2023 Bacteria identified Aer cx Nom (Bld) CULTURE RESULTS NO GROWTH 5 DAYS Normal [facility] Bacteria identified Aer cx Nom (Bld) CULTURE RESULTS NO GROWTH 5 DAYS Normal [facility] CBC AND AUTO DIFFon 04-23-20 ABSOLUTE BASOPHIL 0.0 X10E9/L Normal 0.0-0.2 [facility] Comment on above: Performed By: #### 4 8066-5, , 1987-08, 2275-07, CMP, CBCA ####[facility] ([id number])[address] [place] [address] ABSOLUTE NEUTROPHIL 4.8 X10E9/L Normal 1.5-6.6 [facility] Comment on above: Performed By: #### 4 8066-5, , 1987-08, 2275-07, CMP, CBCA ####[facility] ([id number])[address] [place] [address] Basophils/100 WBC (Bld) 0.5 % Normal [facility] Comment on above: Performed By: #### 4 8066-5, , 1987-08, 2275-07, CMP, CBCA ####[facility] ([id number])[address] [place] [address] Eosinophils (Bld) [#/Vol] 0.1 10*3/uL Normal 0.0-0.4 [facility] Comment on above: Performed By: #### 4 8066-5, , 1987-08, 2275-07, CMP, CBCA ####[facility] ([id number])[address] [place] [address] Eosinophils/100 WBC (Bld) 0.8 % Normal [facility] Comment on above: Performed By: #### 4 8066-5, , 1987-08, 2275-07, CMP, CBCA ####[facility] ([id number])[address] [place] [address] Erythrocyte distribution width (RBC) [Ratio] 19.7 % High 11.5-15.0 [facility] Comment on above: Performed By: #### 4 8066-5, , 1987-08, 2275-07, CMP, CBCA ####[facility] ([id number])[address] [place] [address] Hematocrit (Bld) [Volume fraction] 32.6 % Low 35-47 [facility] Comment on above: Performed By: #### 4 8066-5, , 1987-08, 2275-07, CMP, CBCA ####[facility] ([id number])[address] [place] [address] Hemoglobin (Bld) [Mass/Vol] 10.4 g/dL Low 11.7-15.5 [facility] Comment on above: Performed By: #### 4 8066-5, , 1987-08, 2275-07, CMP, CBCA ####[facility] ([id number])2801 [place] [address] Lymphocytes (Bld) [#/Vol] 1.5 10*3/uL Normal 1.0-3.5 [facility] Comment on above: Performed By: #### 4 8066-5, , 1987-08, 2275-07, CMP, CBCA ####[facility] ([id number])[address] [place] [address] Lymphocytes/100 WBC (Bld) 20.9 % Normal [facility] Comment on above: Performed By: #### 4 8066-5, , 1987-08, 2275-07, CMP, CBCA ####[facility] ([id number])28[address] [place] [address] MCH (RBC) [Entitic mass] 27.2 pg Normal 27-34 [facility] Comment on above: Performed By: #### 4 8066-5, , 1987-08, 2275-07, CMP, CBCA ####[facility] ([id number])[address] [place] [address] MCHC (RBC) [Mass/Vol] 31.7 g/dL Low 32-36 [facility] Comment on above: Performed By: #### 4 8066-5, , 1987-08, 2275-07, CMP, CBCA ####[facility] ([id number])[address] [place] [address] MCV (RBC) [Entitic vol] 86 fL Normal 80-100 [facility] Comment on above: Performed By: #### 4 8066-5, , 1987-08, 2275-07, CMP, CBCA ####[facility] ([id number])[address] [place] [address] Monocytes (Bld) [#/Vol] 0.7 10*3/uL Normal 0-0.9 [facility] Comment on above: Performed By: #### 4 8066-5, , 1987-08, 2275-07, CMP, CBCA ####[facility] ([id number])[address] [place] [address] Monocytes/100 WBC (Bld) 10.2 % Normal [facility] Comment on above: Performed By: #### 4 8066-5, , 1987-08, 2275-07, CMP, CBCA ####[facility] ([id number])[address] [place] [address] Neutrophils/100 WBC (Bld) 67.6 % Normal [facility] Comment on above: Performed By: #### 4 8066-5, , 1987-08, 2275-07, CMP, CBCA ####[facility] ([id number])28[address] [place] [address] Platelet mean volume (Bld) [Entitic vol] 8.1 fL Normal 7-12 [facility] Comment on above: Performed By: #### 4 8066-5, , 1987-08, 2275-07, CMP, CBCA ####[facility] ([id number])[address] [place] [address] Platelets (Bld) [#/Vol] 362 10*3/uL Normal 150-450 [facility] Comment on above: Performed By: #### 4 8066-5, , 1987-08, 2275-07, CMP, CBCA ####[facility] ([id number])[address] [place] [address] RBC COUNT 3.81 X10E12/L Normal 3.80-5.20 [facility] Comment on above: Performed By: #### 4 8066-5, , 1987-08, 2275-07, CMP, CBCA ####[facility] ([id number])[address] [place] [address] RBC morphology finding Nom (Bld) NORMAL Normal [facility] Comment on above: Performed By: #### 4 8066-5, , 1987-08, 2275-07, CMP, CBCA ####[facility] ([id number])[address] [place] [address] WBC (Bld) [#/Vol] 7.1 10*3/uL Normal 4.0-11.0 [facility] Comment on above: Performed By: #### 4 8066-5, , 1987-08, 2275-07, CMP, CBCA ####[facility] ([id number])28[address] [place] [address] COMPREHENSIVE METABOLIC PANE Meek 04-23-2023 Albumin [Mass/Vol] 3.0 g/dL Low 3.2-5.3 [facility] Comment on above: Performed By: #### 4 8066-5, 0, 1987-08, 2275-07, CMP, CBCA ####[facility] ([id number])[address] [place] [address] ALP [Catalytic activity/Vol] 62 U/L Normal 39-130 [facility] Comment on above: Performed By: #### 4 8066-5, 0, 1987-08, 2275-07, CMP, CBCA ####[facility] ([id number])[address] [place] [address] ALT [Catalytic activity/Vol] 18 U/L Normal 0-31 [facility] Comment on above: Performed By: #### 4 8066-5, 0, 1987-08, 2275-07, CMP, CBCA ####[facility] ([id number])[address] [place] [address] Anion gap [Moles/Vol] 5 mmol/L Normal 5-15 [facility] Comment on above: Performed By: #### 4 8066-5, 0, 1987-08, 2275-07, CMP, CBCA ####[facility] ([id number])[address] [place] [address] AST [Catalytic activity/Vol] 18 U/L Normal 0-41 [facility] Comment on above: Performed By: #### 4 8066-5, 0, 1987-08, 2275-07, CMP, CBCA ####[facility] ([id number])[address] [place] [address] Bilirubin [Mass/Vol] 0.6 mg/dL Normal 0.3-1.2 [facility] Comment on above: Performed By: #### 4 8066-5, , 1987-08, 2275-07, CMP, CBCA ####[facility] ([id number])[address] [place] [address] Calcium [Mass/Vol] 9.8 mg/dL Normal 8.5-10.5 [facility] Comment on above: Performed By: #### 4 8066-5, , 1987-08, 2275-07, CMP, CBCA ####[facility] ([id number])[address] [place] [address] Chloride [Moles/Vol] 118 mmol/L High 98-109 [facility] Comment on above: Performed By: #### 4 8066-5, , 1987-08, 2275-07, CMP, CBCA ####[facility] ([id number])[address] [place] [address] CO2 [Moles/Vol] 23 mmol/L Normal 22-32 [facility] Comment on above: Performed By: #### 4 8066-5, , 1987-08, 2275-07, CMP, CBCA ####[facility] ([id number])28[address] [place] [address] Creatinine [Mass/Vol] 0.69 mg/dL Normal 0.40-1.00 [facility] Comment on above: Result Comment: METH OD TRACEABLE TO IDMS STANDARD Performed By: #### 4 8066-5, , 1987-08, 2275-07, CMP, CBCA ####[facility] ([id number])[address] [place] [address] eGFR (CKD-EPI) NON-RACE DEPENDENT >90 Normal >59 [facility] Comment on above: Result Comment: Reported eGFR is based on the CKD-EPI 2020 equation that does not use a race coefficient. Performed By: #### 4 8066-5, , 1987-08, 2275-07, CMP, CBCA ####[facility] ([id number])[address] [place] [address] Glucose [Mass/Vol] 134 mg/dL High 65-99 [facility] Comment on above: Performed By: #### 4 8066-5, , 1987-08, 2275-07, CMP, CBCA ####[facility] ([id number])[address] [place] [address] Potassium [Moles/Vol] 3.4 mmol/L Low 3.5-5.0 [facility] Comment on above: Performed By: #### 4 8066-5, , 1987-08, 2275-07, CMP, CBCA ####[facility] ([id number])[address] [place] [address] Protein [Mass/Vol] 7.4 g/dL Normal 6.0-8.0 [facility] Comment on above: Performed By: #### 4 8066-5, , 1987-08, 2275-07, CMP, CBCA ####[facility] ([id number])[address] [place] [address] Sodium [Moles/Vol] 146 mmol/L Normal 134-146 [facility] Comment on above: Performed By: #### 4 8066-5, , 1987-08, 2275-07, CMP, CBCA ####[facility] ([id number])[address] [place] [address] Urea nitrogen [Mass/Vol] 20 mg/dL Normal 5-23 [facility] Comment on above: Performed By: #### 4 8066-5, , 1987-08, 2275-07, CMP, CBCA ####[facility] ([id number])[address] [place] [address] CRP [Mass/Vol]on 04-23-2023 C REACTIVE PROTEIN 3.4 mg/dL High 0.000-0.7 4 4 [facility] Comment on above: Performed By: #### 4 8066-5, , 1987-08, 2275-07, CMP, CBCA ####[facility] ([id number])[address] [place] [address] FERRITINon 04-23-2023 Ferritin [Mass/Vol] 41 ng/mL Normal 11-307 [facility] Comment on above: Performed By: #### 4 8066-5, , 1987-08, 2275-07, CMP, CBCA ####[facility] ([id number])28[address] [place] [address] Fibrin D-dimer DDU (PPP) [Ma ss/Vol]on 04-23-2023 D DIMER 418 ng/mL DDU High <255 [facility] Comment on above: Result Comment: Results >=255ng/mL DDU: Results may be indicative of the presence of VTE. The use of the Wells score and further diagnostic tests should be considered. Elevated D-Dimer levels can also be associated with DIC, neoplasm, , trauma and liver disease. Elevated levels of rheumatoid factor may lead to an overestimation of the D-Dimer level. Performed By: #### 4 8066-5, , 1987-08, 2275-07, XENIA, CBCA ####[facility] ([id number])[address] [place] [address] Glucose Glucometer (BldC) [M ass/Vol]on 04-23-2023 Glucose [Mass/Vol] 129 mg/dL High 65-99 [facility] Glucose [Mass/Vol] 96 mg/dL Normal 65-99 [facility] Glucose [Mass/Vol] 136 mg/dL High 65-99 [facility] Glucose [Mass/Vol] 127 mg/dL High 65-99 [facility] Glucose [Mass/Vol] 115 mg/dL High 65-99 [facility] LDH [Catalytic activity/Vol] on 04-23-2023 LDH 152 U/L Normal 100-235 [facility] Comment on above: Performed By: #### 4 8066-5, , 1987-08, 2275-07, CMP, CBCA ####[facility] ([id number])[address] [place] [address] LOWER RESPIRATORY CULTUREon 04-23-2023 Bacteria identified Respiratory culture Nom (Sput) GRAM STAIN 10 to 24 WHITE BLOOD CELLS/LPF 0 to 1 SQUAMOUS EPITHELIAL CELLS/LPF 0 CILIATED EPITHELIAL CELLS/LPF MODERATE GRAM POSITIVE COCCI RARE BUDDING YEAST CULTURE RESULTS RARE KLEBSIELLA PNEUMONIAE FEW YEAST ALONG WITH RARE NORMAL ORAL KIKA DR DURAN FROM INFECTIOUS DISEASE REQUESTED ID AND SENSITIVITY ON 04/25/23 Organism: KLEBSIELLA PNEUMONIAE Antibiotic Interpretation ROSARIO Status AMPICILLIN R >=32 F AMP/SULBACTAM S 8/4 F CEFAZOLIN UNK <=4 F CLSI interpretive criteria for nonurinary isolates are as follows: <=2 Susceptible, 4 Intermediate, Resistant >=8. Contact Microbiology laboratory if further susceptibility testing for Cefazolin is required. CEFTRIAXONE S <=1 F CIPROFLOXACIN S <=0.25 F GENTAMICIN S <=1 F LEVOFLOXACIN S 0.25 F PIPERACIL/TAZOBACTAM S 16 F TOBRAMYCIN S <=1 F Susceptible [facility] Comment on above: Performed By: #### C , 62649-2, 34398-1, CBCA #### [facility] ([id number]) [address] [facility] [place] [address] POTASSIUMon 04-23-2023 Potassium [Moles/Vol] 3.7 mmol/L Normal 3.5-5.0 [facility] Comment on above: Performed By: #### C LANA, 32857-1, 10688-8, CBCA #### [facility] ([id number]) [address] [facility] [place] [address] XR CHEST 1 VWon 04-23-2023 XR CHEST 1 VW XR CHEST 1 VW Single view chest History: Difficulty breathing, shortness of breath Comparison: 04/22/2023 Impression: 1. Unchanged endotracheal tube, gastric drainage tube, sternotomy, left IJ catheter [terminating near the upper SVC]. 2. Unchanged central pulmonary vascular congestion without overt pulmonary edema. Confluent opacity right basilar region, favor atelectasis. No new or growing airspace opacity. No pneumothorax or pleural effusion. 3. Borderline cardiomegaly Finalized by Alli Bateman MD on 04/23/2023 6:11 AM Normal [facility] CBC AND AUTO DIFFon 04-22-20 Eosinophils (Bld) [#/Vol] 0.1 10*3/uL Normal 0.0-0.4 [facility] Comment on above: Performed By: #### 6 24-7 #### [facility] ([id number]) [address], [address] [place] [address] Eosinophils/100 WBC (Bld) 1.0 % Normal [facility] Comment on above: Performed By: #### 6 -7 #### [facility] ([id number]) [address], [address] [place] [address] Erythrocyte distribution width (RBC) [Ratio] 20.5 % High 11.5-15.0 [facility] Comment on above: Performed By: #### 6 24-7 #### [facility] ([id number]) [address], [address] [place] [address] Hematocrit (Bld) [Volume fraction] 34.1 % Low 35-47 [facility] Comment on above: Performed By: #### 6 -7 #### [facility] ([id number]) [address], [address] [place] [address] Hemoglobin (Bld) [Mass/Vol] 10.8 g/dL Low 11.7-15.5 [facility] Comment on above: Performed By: #### 6 24-7 #### [facility] ([id number]) [address], [address] [place] [address] LYMPHOCYTE, ATYPICAL 2.0 % Normal [facility] Comment on above: Performed By: #### 6 24-7 #### [facility] ([id number]) [address], [address] [place] [address] Lymphocytes (Bld) [#/Vol] 2.0 10*3/uL Normal 1.0-3.5 [facility] Comment on above: Performed By: #### 6 24-7 #### [facility] ([id number]) [address], [address] [place] [address] Lymphocytes/100 WBC (Bld) 26.5 % Normal [facility] Comment on above: Performed By: #### 6 24-7 #### [facility] ([id number]) [address], [address] [place] [address] MCH (RBC) [Entitic mass] 26.9 pg Low 27-34 [facility] Comment on above: Performed By: #### 6 -7 #### [facility] ([id number]) [address], [address] [place] [address] MCHC (RBC) [Mass/Vol] 31.6 g/dL Low 32-36 [facility] Comment on above: Performed By: #### 6 -7 #### [facility] ([id number]) [address], [address] [place] [address] MCV (RBC) [Entitic vol] 85 fL Normal 80-100 [facility] Comment on above: Performed By: #### 6 24-7 #### [facility] ([id number]) [address], [address] [place] [address] Monocytes (Bld) [#/Vol] 0.9 10*3/uL Normal 0-0.9 [facility] Comment on above: Performed By: #### 6 24-7 #### [facility] ([id number]) [address], [address] [place] [address] Monocytes/100 WBC (Bld) 12.7 % Normal [facility] Comment on above: Performed By: #### 6 24-7 #### [facility] ([id number]) [address], [address] [place] [address] Neutrophils (Bld) [#/Vol] 4.2 10*3/uL Normal 1.5-6.6 [facility] Comment on above: Performed By: #### 6 24-7 #### [facility] ([id number]) [address], [address] [place] [address] NUCLEATED RBC 1.0 /100 WBC Normal 0.0-1.0 [facility] Comment on above: Performed By: #### 6 24-7 #### [facility] ([id number]) [address], [address] [place] [address] Platelet mean volume (Bld) [Entitic vol] 7.8 fL Normal 7-12 [facility] Comment on above: Performed By: #### 6 24-7 #### [facility] ([id number]) [address], [address] [place] [address] Platelets (Bld) [#/Vol] 370 10*3/uL Normal 150-450 [facility] Comment on above: Performed By: #### 6 24-7 #### [facility] ([id number]) [address], [address] [place] [address] POLYCHROMASIA 1+ Abnormal NONE [facility] Comment on above: Performed By: #### 6 24-7 #### [facility] ([id number]) [address], [address] [place] [address] RBC COUNT 4.00 X10E12/L Normal 3.80-5.20 [facility] Comment on above: Performed By: #### 6 24-7 #### [facility] ([id number]) [address], [address] [place] [address] SEG NEUTROPHIL 57.8 % Normal [facility] Comment on above: Performed By: #### 6 24-7 #### [facility] ([id number]) [address], [address] [place] [address] WBC (Bld) [#/Vol] 7.3 10*3/uL Normal 4.0-11.0 [facility] Comment on above: Performed By: #### 6 24-7 #### [facility] ([id number]) [address], [address] [place] [address] COMPREHENSIVE METABOLIC PANE Meek 04-22-2023 Albumin [Mass/Vol] 3.0 g/dL Low 3.2-5.3 [facility] Comment on above: Performed By: #### 6 24-7 #### [facility] ([id number]) [address], [address] [place] [address] ALP [Catalytic activity/Vol] 68 U/L Normal 39-130 [facility] Comment on above: Performed By: #### 6 24-7 #### [facility] ([id number]) [address], [address] [place] [address] ALT [Catalytic activity/Vol] 16 U/L Normal 0-31 [facility] Comment on above: Performed By: #### 6 24-7 #### [facility] ([id number]) [address], [address] [place] [address] Anion gap [Moles/Vol] 11 mmol/L Normal 5-15 [facility] Comment on above: Performed By: #### 6 24-7 #### [facility] ([id number]) [address], [address] [place] [address] AST [Catalytic activity/Vol] 18 U/L Normal 0-41 [facility] Comment on above: Performed By: #### 6 24-7 #### [facility] ([id number]) [address], [address] [place] [address] Bilirubin [Mass/Vol] 0.5 mg/dL Normal 0.3-1.2 [facility] Comment on above: Performed By: #### 6 24-7 #### [facility] ([id number]) [address], [address] [place] [address] Calcium [Mass/Vol] 9.5 mg/dL Normal 8.5-10.5 [facility] Comment on above: Performed By: #### 6 24-7 #### [facility] ([id number]) [address] [place] [address] Chloride [Moles/Vol] 113 mmol/L High 98-109 [facility] Comment on above: Performed By: #### 6 24-7 #### [facility] ([id number]) [address], [address] [place] [address] CO2 [Moles/Vol] 22 mmol/L Normal 22-32 [facility] Comment on above: Performed By: #### 6 24-7 #### [facility] ([id number]) [address] [place] [address] Creatinine [Mass/Vol] 0.85 mg/dL Normal 0.40-1.00 [facility] Comment on above: Result Comment: METH OD TRACEABLE TO IDMS STANDARD Performed By: #### 6 24-7 #### [facility] ([id number]) [address] [place] [address] GFR/1.73 sq M.predicted among non-blacks MDRD (S/P/Bld) [Vol rate/Area] 78 mL/min/{1.73_m2} Normal >59 [facility] Comment on above: Result Comment: Reported eGFR is based on the CKD-EPI 2020 equation that does not use a race coefficient. Performed By: #### 6 24-7 #### [facility] ([id number]) [address], [address] [place] [address] Glucose [Mass/Vol] 107 mg/dL High 65-99 [facility] Comment on above: Performed By: #### 6 24-7 #### [facility] ([id number]) [address], [address] [place] [address] Potassium [Moles/Vol] 3.3 mmol/L Low 3.5-5.0 [facility] Comment on above: Performed By: #### 6 24-7 #### [facility] ([id number]) [address], [address] [place] [address] Protein [Mass/Vol] 7.6 g/dL Normal 6.0-8.0 [facility] Comment on above: Performed By: #### 6 24-7 #### [facility] ([id number]) [address], [address] [place] [address] Sodium [Moles/Vol] 146 mmol/L Normal 134-146 [facility] Comment on above: Performed By: #### 6 24-7 #### [facility] ([id number]) [address], [address] [place] [address] Urea nitrogen [Mass/Vol] 22 mg/dL Normal 5-23 [facility] Comment on above: Performed By: #### 6 24-7 #### [facility] ([id number]) [address] [place] [address] Glucose Glucometer (BldC) [M ass/Vol]on 04-22-2023 Glucose [Mass/Vol] 149 mg/dL High 65-99 [facility] Glucose [Mass/Vol] 126 mg/dL High 65-99 [facility] Glucose [Mass/Vol] 109 mg/dL High 65-99 [facility] Glucose [Mass/Vol] 103 mg/dL High 65-99 [facility] POTASSIUMon 04-22-2023 Potassium [Moles/Vol] 3.8 mmol/L Normal 3.5-5.0 [facility] Comment on above: Performed By: #### 6 24-7 #### [facility] ([id number]) [address], [address] [place] [address] Potassium [Moles/Vol] 3.3 mmol/L Low 3.5-5.0 [facility] Comment on above: Performed By: #### 6 24-7 #### [facility] ([id number]) [address] [facility] [place] [address] TRIGLYCERIDEon 04-22-2023 Triglyceride [Mass/Vol] 510 mg/dL High 27-150 [facility] Comment on above: Performed By: #### 6 24-7 #### [facility] ([id number]) [address] [facility] [place] [address] XR CHEST 1 VWon 04-22-2023 XR CHEST 1 VW XR CHEST 1 VW Single view chest History: Difficulty breathing, shortness of breath. Comparison: 04/21/2023 Findings: ET tube tip approximately 4 cm above the miki. Enteric tube tip over the stomach. Looped configuration left IJ catheter, correlate with function, tip over the proximal SVC. Stable cardiomediastinal silhouette. Median sternotomy. Patchy/nodular opacity over the right midlung zone laterally. Perihilar and bibasilar atelectasis, suspect trace effusions. No pneumothorax. Impression: 1. Persistent linear/patchy perihilar and bibasilar airspace opacities; correlate with any ongoing edema, atelectasis, and/or pneumonia. 2. Support devices as above Finalized by Victor Hugo Gustafson MD on 04/22/2023 6:14 AM Normal [facility] CBC AND AUTO DIFFon 04-21-20 ABSOLUTE BASOPHIL 0.0 X10E9/L Normal 0.0-0.2 [facility] Comment on above: Performed By: #### 2 571-8 ####[facility] ([id number])[address] [facility], [place] [address]#### CMP, CBCA ####[facility] ([id number])[address] [place] [address] ABSOLUTE NEUTROPHIL 4.3 X10E9/L Normal 1.5-6.6 [facility] Comment on above: Performed By: #### 2 571-8 ####[facility] ([id number])[address], [place] [address]#### CMP, CBCA ####[facility] ([id number])[address] [place] [address] Basophils/100 WBC (Bld) 0.4 % Normal [facility] Comment on above: Performed By: #### 2 571-8 ####[facility] ([id number])[address] [facility] [address] [place] [address]#### CMP, CBCA ####[facility] ([id number])[address] [place] [address] Eosinophils (Bld) [#/Vol] 0.1 10*3/uL Normal 0.0-0.4 [facility] Comment on above: Performed By: #### 2 571-8 ####[facility] ([id number])[address] [facility] [address], [place] [address]#### CMP, CBCA ####[facility] ([id number])[address] [place] [address] Eosinophils/100 WBC (Bld) 1.2 % Normal [facility] Comment on above: Performed By: #### 2 571-8 ####[facility] ([id number])[address] [address] [place] [address]#### CMP, CBCA ####[facility] ([id number])[address] [place] [address] Erythrocyte distribution width (RBC) [Ratio] 20.6 % High 11.5-15.0 [facility] Comment on above: Performed By: #### 2 571-8 ####[facility] ([id number])[address] [facility] [address] [place] [address]#### CMP, CBCA ####[facility] ([id number])[address] [place] [address] Hematocrit (Bld) [Volume fraction] 31.6 % Low 35-47 [facility] Comment on above: Performed By: #### 2 571-8 ####[facility] ([id number])[address] [place] [address]#### CMP, CBCA ####[facility] ([id number])2801 [place] [address] Hemoglobin (Bld) [Mass/Vol] 10.1 g/dL Low 11.7-15.5 [facility] Comment on above: Performed By: #### 2 571-8 ####[facility] ([id number])0 [facility], [address] [place] [address]#### CMP, CBCA ####[facility] ([id number])[address] [place] [address] Lymphocytes (Bld) [#/Vol] 1.3 10*3/uL Normal 1.0-3.5 [facility] Comment on above: Performed By: #### 2 571-8 ####[facility] ([id number])[address], [address] [place] [address]#### CMP, CBCA ####[facility] ([id number])2801 [place] [address] Lymphocytes/100 WBC (Bld) 21.1 % Normal [facility] Comment on above: Performed By: #### 2 571-8 ####[facility] ([id number])[address] [address] [place] [address]#### CMP, CBCA ####[facility] ([id number])2801 [place] [address] MCH (RBC) [Entitic mass] 27.2 pg Normal 27-34 [facility] Comment on above: Performed By: #### 2 571-8 ####[facility] ([id number])0 [address] [address] [place] [address]#### CMP, CBCA ####[facility] ([id number])2801 [place] [address] MCHC (RBC) [Mass/Vol] 32.1 g/dL Normal 32-36 [facility] Comment on above: Performed By: #### 2 571-8 ####[facility] ([id number])[address] [address] [place] [address]#### CMP, CBCA ####[facility] ([id number])2801 [place] [address] MCV (RBC) [Entitic vol] 85 fL Normal 80-100 [facility] Comment on above: Performed By: #### 2 571-8 ####[facility] ([id number])[address] [address] [place] [address]#### CMP, CBCA ####[facility] ([id number])2801 [place] [address] Monocytes (Bld) [#/Vol] 0.5 10*3/uL Normal 0-0.9 [facility] Comment on above: Performed By: #### 2 571-8 ####[facility] ([id number])[address] [address] [place] [address]#### CMP, CBCA ####[facility] ([id number])2801 [place] [address] Monocytes/100 WBC (Bld) 8.3 % Normal [facility] Comment on above: Performed By: #### 2 571-8 ####[facility] ([id number])0 [address] [address] [place] [address]#### CMP, CBCA ####[facility] ([id number])[address]01 [place] [address] Neutrophils/100 WBC (Bld) 69.0 % Normal [facility] Comment on above: Performed By: #### 2 571-8 ####[facility] ([id number])[address], [address], [place] [address]#### CMP, CBCA ####[facility] ([id number])[address] [place] [address] Platelet mean volume (Bld) [Entitic vol] 7.7 fL Normal 7-12 [facility] Comment on above: Performed By: #### 2 571-8 ####[facility] ([id number])[address], [address], [place] [address]#### CMP, CBCA ####[facility] ([id number])[address] [place] [address] Platelets (Bld) [#/Vol] 349 10*3/uL Normal 150-450 [facility] Comment on above: Performed By: #### 2 571-8 ####[facility] ([id number])[address], [address] [place] [address]#### CMP, CBCA ####[facility] ([id number])[address] [place] [address] RBC COUNT 3.73 X10E12/L Low 3.80-5.20 [facility] Comment on above: Performed By: #### 2 571-8 ####[facility] ([id number])[address], [address], [place] [address]#### CMP, CBCA ####[facility] ([id number])[address] [place] [address] RBC morphology finding Nom (Bld) REVIEWED Normal [facility] Comment on above: Performed By: #### 2 571-8 ####[facility] ([id number])0 [address] [address], [place] [address]#### CMP, CBCA ####[facility] ([id number])[address] [place] [address] WBC (Bld) [#/Vol] 6.2 10*3/uL Normal 4.0-11.0 [facility] Comment on above: Performed By: #### 2 571-8 ####[facility] ([id number])[address] [facility] [address] [place] [address]#### CMP, CBCA ####[facility] ([id number])[address] [place] [address] COMPREHENSIVE METABOLIC PANE [facility] 04-21-2023 Albumin [Mass/Vol] 2.7 g/dL Low 3.2-5.3 [facility] Comment on above: Performed By: #### 2 571-8 ####[facility] ([id number])[address] [facility] [address], [place] [address]#### CMP, CBCA ####[facility] ([id number])[address] [place] [address] ALP [Catalytic activity/Vol] 63 U/L Normal 39-130 [facility] Comment on above: Performed By: #### 2 571-8 ####[facility] ([id number])[address] [address], [place] [address]#### CMP, CBCA ####[facility] ([id number])[address] [place] [address] ALT [Catalytic activity/Vol] 14 U/L Normal 0-31 [facility] Comment on above: Performed By: #### 2 571-8 ####[facility] ([id number])0 [address] [address], [place] [address]#### CMP, CBCA ####[facility] ([id number])28[address] [place] [address] Anion gap [Moles/Vol] 7 mmol/L Normal 5-15 [facility] Comment on above: Performed By: #### 2 571-8 ####[facility] ([id number])[address] [facility] [address] [place] [address]#### CMP, CBCA ####[facility] ([id number])28[address] [place] [address] AST [Catalytic activity/Vol] 16 U/L Normal 0-41 [facility] Comment on above: Performed By: #### 2 571-8 ####[facility] ([id number])[address] [facility], [address] [place] [address]#### CMP, CBCA ####[facility] ([id number])[address] [place] [address] Bilirubin [Mass/Vol] 0.7 mg/dL Normal 0.3-1.2 [facility] Comment on above: Performed By: #### 2 571-8 ####[facility] ([id number])[address] [facility], [address] [place] [address]#### CMP, CBCA ####[facility] ([id number])[address] [place] [address] Calcium [Mass/Vol] 8.2 mg/dL Low 8.5-10.5 [facility] Comment on above: Performed By: #### 2 571-8 ####[facility] ([id number])[address], [address], [place] [address]#### CMP, CBCA ####[facility] ([id number])[address] [place] [address] Chloride [Moles/Vol] 115 mmol/L High 98-109 [facility] Comment on above: Performed By: #### 2 571-8 ####[facility] ([id number])0 [facility], [address] [address]#### CMP, CBCA ####[facility] ([id number])[address] [place] [address] CO2 [Moles/Vol] 23 mmol/L Normal 22-32 [facility] Comment on above: Performed By: #### 2 571-8 ####[facility] ([id number])0 [facility] [address], [place] [address]#### CMP, CBCA ####[facility] ([id number])[address] [place] [address] Creatinine [Mass/Vol] 0.77 mg/dL Normal 0.40-1.00 [facility] Comment on above: Result Comment: METH OD TRACEABLE TO IDMS STANDARD Performed By: #### 2 571-8 ####[facility] ([id number])[address] [facility] [address] [place] [address]#### CMP, CBCA ####[facility] ([id number])[address] [place] [address] GFR/1.73 sq M.predicted among non-blacks MDRD (S/P/Bld) [Vol rate/Area] 88 mL/min/{1.73_m2} Normal >59 [facility] Comment on above: Result Comment: Reported eGFR is based on the CKD-EPI 2020 equation that does not use a race coefficient. Performed By: #### 2 571-8 ####[facility] ([id number])0 [facility] [address], [place] [address]#### CMP, CBCA ####[facility] ([id number])[address] [place] [address] Glucose [Mass/Vol] 100 mg/dL High 65-99 [facility] Comment on above: Performed By: #### 2 571-8 ####[facility] ([id number])[address] [address]#### CMP, CBCA ####[facility] ([id number])[address] [place] [address] Potassium [Moles/Vol] 4.1 mmol/L Normal 3.5-5.0 [facility] Comment on above: Performed By: #### 2 571-8 ####[facility] ([id number])[address], [address] [place] [address]#### CMP, CBCA ####[facility] ([id number])[address] [place] [address] Protein [Mass/Vol] 6.8 g/dL Normal 6.0-8.0 [facility] Comment on above: Performed By: #### 2 571-8 ####[facility] ([id number])[address], [address] [place] [address]#### CMP, CBCA ####[facility] ([id number])[address] [place] [address] Sodium [Moles/Vol] 145 mmol/L Normal 134-146 [facility] Comment on above: Performed By: #### 2 571-8 ####[facility] ([id number])0 [address] [address] [place] [address]#### CMP, CBCA ####[facility] ([id number])[address] [place] [address] Urea nitrogen [Mass/Vol] 21 mg/dL Normal 5-23 [facility] Comment on above: Performed By: #### 2 571-8 ####[facility] ([id number])0 [address] [address] [place] [address]#### CMP, CBCA ####[facility] ([id number])[address] [place] [address] Glucose Glucometer (BldC) [M ass/Vol]on 04-21-2023 Glucose [Mass/Vol] 170 mg/dL High 65-99 [facility] Glucose [Mass/Vol] 102 mg/dL High 65-99 [facility] Glucose [Mass/Vol] 93 mg/dL Normal 65-99 [facility] Glucose [Mass/Vol] 115 mg/dL High 65-99 [facility] TRIGLYCERIDEon 04-21-2023 Triglyceride [Mass/Vol] 422 mg/dL High 27-150 [facility] Comment on above: Performed By: #### 2 571-8 ####[facility] ([id number])[address], [address] [place] [address]#### CMP, CBCA ####[facility] ([id number])[address] [place] [address] XR CHEST 1 VWon 04-21-2023 XR CHEST 1 VW XR CHEST 1 VW Single view chest History:resp failure Difficulty breathing, shortness of breath Comparison: 04/20/2023 Findings: Single portable view of the chest. Degenerative and enteric catheter. Diminished penetration relative to body habitus and portable technique. Stable bilateral lower lung atelectasis. No obvious pneumothorax. Impression: Stable tubes and lines. Stable appearance of the chest. Finalized by Victor Hugo Kim MD on 04/21/2023 5:51 AM Normal [facility] CBC AND AUTO DIFFon 04-20-20 ABSOLUTE BASOPHIL 0.0 X10E9/L Normal 0.0-0.2 [facility] Comment on above: Performed By: #### C BCA, CMP ####[facility] ([id number])[address] [place] [address]#### 2571-8 ####[facility] ([id number])[address], [address] [place] [address] ABSOLUTE NEUTROPHIL 3.9 X10E9/L Normal 1.5-6.6 [facility] Comment on above: Performed By: #### C BCA, CMP ####[facility] ([id number])[address] [place] [address]#### 2571-8 ####[facility] ([id number])[address], [address], [place] [address] Basophils/100 WBC (Bld) 0.3 % Normal [facility] Comment on above: Performed By: #### C BCA, CMP ####[facility] ([id number])[address] [place] [address]#### 2571-8 ####[facility] ([id number])[address], [address], [place] [address] Eosinophils (Bld) [#/Vol] 0.1 10*3/uL Normal 0.0-0.4 [facility] Comment on above: Performed By: #### C BCA, CMP ####[facility] ([id number])[address] [place] [address]#### 2571-8 ####[facility] ([id number])[address] [address], [place] [address] Eosinophils/100 WBC (Bld) 1.1 % Normal [facility] Comment on above: Performed By: #### C BCA, CMP ####[facility] ([id number])[address] [place] [address]#### 2571-8 ####[facility] ([id number])[address] [address], [place] [address] Erythrocyte distribution width (RBC) [Ratio] 21.9 % High 11.5-15.0 [facility] Comment on above: Performed By: #### C BCA, CMP ####[facility] ([id number])[address] [place] [address]#### 2571-8 ####[facility] ([id number])[address] [address], [place] [address] Hematocrit (Bld) [Volume fraction] 31.9 % Low 35-47 [facility] Comment on above: Performed By: #### C BCA, CMP ####[facility] ([id number])[address] [place] [address]#### 2571-8 ####[facility] ([id number])[address], [address], [place] [address] Hemoglobin (Bld) [Mass/Vol] 10.0 g/dL Low 11.7-15.5 [facility] Comment on above: Performed By: #### C BCA, CMP ####[facility] ([id number])[address] [place] [address]#### 2571-8 ####[facility] ([id number])[address], [address], [place] [address] Lymphocytes (Bld) [#/Vol] 1.2 10*3/uL Normal 1.0-3.5 [facility] Comment on above: Performed By: #### C BCA, CMP ####[facility] ([id number])[address] [place] [address]#### 2571-8 ####[facility] ([id number])[address], [address], [place] [address] Lymphocytes/100 WBC (Bld) 20.9 % Normal [facility] Comment on above: Performed By: #### C BCA, CMP ####[facility] ([id number])[address] [place] [address]#### 2571-8 ####[facility] ([id number])[address], [address], [place] [address] MCH (RBC) [Entitic mass] 26.5 pg Low 27-34 [facility] Comment on above: Performed By: #### C BCA, CMP ####[facility] ([id number])[address] [place] [address]#### 2571-8 ####[facility] ([id number])[address], [address], [place] [address] MCHC (RBC) [Mass/Vol] 31.3 g/dL Low 32-36 [facility] Comment on above: Performed By: #### C BCA, CMP ####[facility] ([id number])[address] [place] [address]#### 2571-8 ####[facility] ([id number])[address], [address], [place] [address] MCV (RBC) [Entitic vol] 85 fL Normal 80-100 [facility] Comment on above: Performed By: #### C BCA, CMP ####[facility] ([id number])[address] [place] [address]#### 2571-8 ####[facility] ([id number])0 [address] [address], [place] [address] Monocytes (Bld) [#/Vol] 0.5 10*3/uL Normal 0-0.9 [facility] Comment on above: Performed By: #### C BCA, CMP ####[facility] ([id number])[address] [place] [address]#### 2571-8 ####[facility] ([id number])0 [address] [address], [place] [address] Monocytes/100 WBC (Bld) 8.8 % Normal [facility] Comment on above: Performed By: #### C BCA, CMP ####[facility] ([id number])[address] [place] [address]#### 2571-8 ####[facility] ([id number])[address], [address], [place] [address] Neutrophils/100 WBC (Bld) 68.9 % Normal [facility] Comment on above: Performed By: #### C BCA, CMP ####[facility] ([id number])[address] [place] [address]#### 2571-8 ####[facility] ([id number])[address], [address], [place] [address] Platelet mean volume (Bld) [Entitic vol] 7.5 fL Normal 7-12 [facility] Comment on above: Performed By: #### C BCA, CMP ####[facility] ([id number])[address] [place] [address]#### 2571-8 ####[facility] ([id number])[address], [address], [place] [address] Platelets (Bld) [#/Vol] 347 10*3/uL Normal 150-450 [facility] Comment on above: Performed By: #### C BCA, CMP ####[facility] ([id number])[address] [place] [address]#### 2571-8 ####[facility] ([id number])[address], [address], [place] [address] RBC COUNT 3.77 X10E12/L Low 3.80-5.20 [facility] Comment on above: Performed By: #### C BCA, CMP ####[facility] ([id number])[address] [place] [address]#### 2571-8 ####[facility] ([id number])[address], [address], [place] [address] RBC morphology finding Nom (Bld) REVIEWED Normal [facility] Comment on above: Performed By: #### C BCA, CMP ####[facility] ([id number])[address] [place] [address]#### 2571-8 ####[facility] ([id number])[address] [place] [address] WBC (Bld) [#/Vol] 5.6 10*3/uL Normal 4.0-11.0 [facility] Comment on above: Performed By: #### C BCA, CMP ####[facility] ([id number])[address] [place] [address]#### 2571-8 ####[facility] ([id number])[address], [address], [place] [address] COMPREHENSIVE METABOLIC PANE [facility] 04-20-2023 Albumin [Mass/Vol] 2.6 g/dL Low 3.2-5.3 [facility] Comment on above: Performed By: #### C BCA, CMP ####[facility] ([id number])[address] [place] [address]#### 2571-8 ####[facility] ([id number])[address], [address], [place] [address] ALP [Catalytic activity/Vol] 66 U/L Normal 39-130 [facility] Comment on above: Performed By: #### C BCA, CMP ####[facility] ([id number])[address] [place] [address]#### 2571-8 ####[facility] ([id number])[address], [address], [place] [address] ALT [Catalytic activity/Vol] 14 U/L Normal 0-31 [facility] Comment on above: Performed By: #### C BCA, CMP ####[facility] ([id number])[address] [place] [address]#### 2571-8 ####[facility] ([id number])[address], [address], [place] [address] Anion gap [Moles/Vol] 7 mmol/L Normal 5-15 [facility] Comment on above: Performed By: #### C BCA, CMP ####[facility] ([id number])[address] [place] [address]#### 2571-8 ####[facility] ([id number])[address], [address], [place] [address] AST [Catalytic activity/Vol] 14 U/L Normal 0-41 [facility] Comment on above: Performed By: #### C BCA, CMP ####[facility] ([id number])[address] [place] [address]#### 2571-8 ####[facility] ([id number])[address], [address] [place] [address] Bilirubin [Mass/Vol] 0.5 mg/dL Normal 0.3-1.2 [facility] Comment on above: Performed By: #### C BCA, CMP ####[facility] ([id number])[address] [place] [address]#### 2571-8 ####[facility] ([id number])[address], [address] [address] Calcium [Mass/Vol] 8.4 mg/dL Low 8.5-10.5 [facility] Comment on above: Performed By: #### C BCA, CMP ####[facility] ([id number])[address] [place] [address]#### 2571-8 ####[facility] ([id number])[address], [address], [place] [address] Chloride [Moles/Vol] 115 mmol/L High 98-109 [facility] Comment on above: Performed By: #### C BCA, CMP ####[facility] ([id number])[address] [place] [address]#### 2571-8 ####[facility] ([id number])[address], [address], [place] [address] CO2 [Moles/Vol] 23 mmol/L Normal 22-32 [facility] Comment on above: Performed By: #### C BCA, CMP ####[facility] ([id number])[address] [place] [address]#### 2571-8 ####[facility] ([id number])[address], [address], [place] [address] Creatinine [Mass/Vol] 0.75 mg/dL Normal 0.40-1.00 [facility] Comment on above: Result Comment: METH OD TRACEABLE TO IDMS STANDARD Performed By: #### C BCA, CMP ####[facility] ([id number])[address] [place] [address]#### 2571-8 ####[facility] ([id number])[address], [address], [place] [address] eGFR (CKD-EPI) NON-RACE DEPENDENT >90 Normal >59 [facility] Comment on above: Result Comment: Reported eGFR is based on the CKD-EPI 2020 equation that does not use a race coefficient. Performed By: #### C BCA, CMP ####[facility] ([id number])[address] [place] [address]#### 2571-8 ####[facility] ([id number])[address], [address], [place] [address] Glucose [Mass/Vol] 100 mg/dL High 65-99 [facility] Comment on above: Performed By: #### C BCA, CMP ####[facility] ([id number])[address] [place] [address]#### 2571-8 ####[facility] ([id number])[address] [address], [place] [address] Potassium [Moles/Vol] 3.7 mmol/L Normal 3.5-5.0 [facility] Comment on above: Performed By: #### C BCA, CMP ####[facility] ([id number])[address] [place] [address]#### 2571-8 ####[facility] ([id number])[address], [address] [place] [address] Protein [Mass/Vol] 7.0 g/dL Normal 6.0-8.0 [facility] Comment on above: Performed By: #### C BCA, CMP ####[facility] ([id number])[address] [place] [address]#### 2571-8 ####[facility] ([id number])[address], [address] [place] [address] Sodium [Moles/Vol] 145 mmol/L Normal 134-146 [facility] Comment on above: Performed By: #### C BCA, CMP ####[facility] ([id number])[address] [place] [address]#### 2571-8 ####[facility] ([id number])[address], [address] [place] [address] Urea nitrogen [Mass/Vol] 16 mg/dL Normal 5-23 [facility] Comment on above: Performed By: #### C BCA, CMP ####[facility] ([id number])[address] [place] [address]#### 2571-8 ####[facility] ([id number])[address], [address] [place] [address] Glucose Glucometer (BldC) [M ass/Vol]on 04-20-2023 Glucose [Mass/Vol] 135 mg/dL High 65-99 [facility] Glucose [Mass/Vol] 105 mg/dL High 65-99 [facility] Glucose [Mass/Vol] 87 mg/dL Normal 65-99 [facility] Glucose [Mass/Vol] 97 mg/dL Normal 65-99 [facility] POTASSIUMon 04-20-2023 Potassium [Moles/Vol] 3.8 mmol/L Normal 3.5-5.0 [facility] Comment on above: Performed By: #### 2 823-3 ####[facility] ([id number])[address] [place] [address] Potassium [Moles/Vol] 4.1 mmol/L Normal 3.5-5.0 [facility] Comment on above: Performed By: #### 2 823-3 ####[facility] ([id number])[address] [place] [address] TRIGLYCERIDEon 04-20-2023 Triglyceride [Mass/Vol] 335 mg/dL High 27-150 [facility] Comment on above: Performed By: #### C BCA, CMP ####[facility] ([id number])[address] [place] [address]#### 2571-8 ####[facility] ([id number])[address] [facility] [address] [place] [address] XR CHEST 1 VWon 04-20-2023 XR CHEST 1 VW XR CHEST 1 VW Clinical history: Acute respiratory failure. Comparisons: 04/16/2023 through 04/19/2023. Findings: Portable upright chest radiograph obtained 5:08 AM. Heart size and pulmonary vasculature appear within normal limits. There is hypoventilation with low lung volumes. Right basilar atelectasis persists. Nasogastric tube terminates within stomach. Endotracheal tube is in satisfactory position terminating 4.3 cm above level the miki. Left IJ central venous catheter tip again terminates in superior vena cava. It is looped likely at or near the venotomy site similar to prior exam. Changes of prior cardiac surgery again seen. There is no pneumothorax. IMPRESSION: Stable appearance of the chest as above. Finalized by Tritsen Neely MD on 04/20/2023 5:33 AM Normal [facility] ARTERIAL BLOOD GASon 023 RAVINDRA'S TEST Pass Normal [facility] Comment on above: Performed By: #### A BG #### [facility] ([id number]) [address] [facility] [place] [address] BASE,DEFICIT 1.0 MMOL/L Normal 0.0-2.0 [facility] Comment on above: Performed By: #### A BG #### [facility] ([id number]) [address] [place] [address] Body temperature 98.6 [degF] Normal 37.0 [facility] Comment on above: Performed By: #### A BG #### [facility] ([id number]) [address] [place] [address] HCO3 (Bld) [Moles/Vol] 24.2 mmol/L Normal 22-26 [facility] Comment on above: Performed By: #### A BG #### [facility] ([id number]) [address] [place] [address] INSP. O2 CONC. 40 % Normal [facility] Comment on above: Performed By: #### A BG #### [facility] ([id number]) [address] [place] [address] Oxygen (Bld) [Partial pressure] 69 mm[Hg] Low 80-100 [facility] Comment on above: Performed By: #### A BG #### [facility] ([id number]) [address] [place] [address] Oxygen saturation in Blood 93.0 % Normal >90 [facility] Comment on above: Performed By: #### A BG #### [facility] ([id number]) [facility] [place] [address] OXYGEN SOURCE Vent Normal [facility] Comment on above: Performed By: #### A BG #### [facility] ([id number]) [address] [place] [address] PCO2 41.9 MMHG Normal 35-45 [facility] Comment on above: Performed By: #### A BG #### [facility] ([id number]) [address] [place] [address] pH (Bld) 7.371 [pH] Normal 7.350-7.45 0 [facility] Comment on above: Performed By: #### A BG #### [facility] ([id number]) [address] [place] [address] SAMPLE SITE LRad Normal [facility] Comment on above: Performed By: #### A BG #### [facility] ([id number]) [facility] [place] [address] SAMPLE TYPE ARTERIAL Normal [facility] Comment on above: Performed By: #### A BG #### [facility] ([id number]) [facility] [place] [address] CBC AND AUTO DIFFon 24- 23 ABSOLUTE BASOPHIL 0.0 X10E9/L Normal 0.0-0.2 [facility] Comment on above: Performed By: #### A BG #### [facility] ([id number]) [place] [facility] [place] [address] ABSOLUTE NEUTROPHIL 3.7 X10E9/L Normal 1.5-6.6 [facility] Comment on above: Performed By: #### A BG #### [facility] ([id number]) [facility] [place] [address] Basophils/100 WBC (Bld) 0.3 % Normal [facility] Comment on above: Performed By: #### A BG #### [facility] ([id number]) [address] [place] [address] [place] [address] Eosinophils (Bld) [#/Vol] 0.0 10*3/uL Normal 0.0-0.4 [facility] Comment on above: Performed By: #### A BG #### [facility] ([id number]) [facility] [address] [place] [address] Eosinophils/100 WBC (Bld) 0.8 % Normal [facility] Comment on above: Performed By: #### A BG #### [facility] ([id number]) [facility] [place] [address] Erythrocyte distribution width (RBC) [Ratio] 21.6 % High 11.5-15.0 [facility] Comment on above: Performed By: #### A BG #### [facility] ([id number]) [facility] [place] [address] Hematocrit (Bld) [Volume fraction] 30.5 % Low 35-47 [facility] Comment on above: Performed By: #### A BG #### [facility] ([id number]) [address] [place] [address] Hemoglobin (Bld) [Mass/Vol] 9.8 g/dL Low 11.7-15.5 [facility] Comment on above: Performed By: #### A BG #### [facility] ([id number]) [address] [place] [address] Lymphocytes (Bld) [#/Vol] 1.5 10*3/uL Normal 1.0-3.5 [facility] Comment on above: Performed By: #### A BG #### [facility] ([id number]) [address] [place] [address] Lymphocytes/100 WBC (Bld) 26.6 % Normal [facility] Comment on above: Performed By: #### A BG #### [facility] ([id number]) [address] [place] [address] MCH (RBC) [Entitic mass] 27.0 pg Normal 27-34 [facility] Comment on above: Performed By: #### A BG #### [facility] ([id number]) [address] [place] [address] MCHC (RBC) [Mass/Vol] 32.1 g/dL Normal 32-36 [facility] Comment on above: Performed By: #### A BG #### [facility] ([id number]) [address] [place] [address] MCV (RBC) [Entitic vol] 84 fL Normal 80-100 [facility] Comment on above: Performed By: #### A BG #### [facility] ([id number]) [address] [place] [address] Monocytes (Bld) [#/Vol] 0.4 10*3/uL Normal 0-0.9 [facility] Comment on above: Performed By: #### A BG #### [facility] ([id number]) [address] [place] [address] Monocytes/100 WBC (Bld) 6.8 % Normal [facility] Comment on above: Performed By: #### A BG #### [facility] ([id number]) [address] [place] [address] Neutrophils/100 WBC (Bld) 65.5 % Normal [facility] Comment on above: Performed By: #### A BG #### [facility] ([id number]) [address] [place] [address] Platelet mean volume (Bld) [Entitic vol] 7.5 fL Normal 7-12 [facility] Comment on above: Performed By: #### A BG #### [facility] ([id number]) [address] [place] [address] Platelets (Bld) [#/Vol] 328 10*3/uL Normal 150-450 [facility] Comment on above: Performed By: #### A BG #### [facility] ([id number]) [address] [place] [address] RBC COUNT 3.62 X10E12/L Low 3.80-5.20 [facility] Comment on above: Performed By: #### A BG #### [facility] ([id number]) [address] [place] [address] RBC morphology finding Nom (Bld) REVIEWED Normal [facility] Comment on above: Performed By: #### A BG #### [facility] ([id number]) [address] [place] [address] WBC (Bld) [#/Vol] 5.6 10*3/uL Normal 4.0-11.0 [facility] Comment on above: Performed By: #### A BG #### [facility] ([id number]) [address] [place] [address] COMPREHENSIVE METABOLIC PANE Meek 04-19-2023 Albumin [Mass/Vol] 2.4 g/dL Low 3.2-5.3 [facility] Comment on above: Performed By: #### A BG #### [facility] ([id number]) [address] [place] [address] ALP [Catalytic activity/Vol] 62 U/L Normal 39-130 [facility] Comment on above: Performed By: #### A BG #### [facility] ([id number]) [address] [place] [address] ALT [Catalytic activity/Vol] 16 U/L Normal 0-31 [facility] Comment on above: Performed By: #### A BG #### [facility] ([id number]) [address] [place] [address] Anion gap [Moles/Vol] 6 mmol/L Normal 5-15 [facility] Comment on above: Performed By: #### A BG #### [facility] ([id number]) [address] [place] [address] AST [Catalytic activity/Vol] 18 U/L Normal 0-41 [facility] Comment on above: Performed By: #### A BG #### [facility] ([id number]) [address] [place] [address] Bilirubin [Mass/Vol] 0.5 mg/dL Normal 0.3-1.2 [facility] Comment on above: Performed By: #### A BG #### [facility] ([id number]) [address] [place] [address] Calcium [Mass/Vol] 8.2 mg/dL Low 8.5-10.5 [facility] Comment on above: Performed By: #### A BG #### [facility] ([id number]) [address] [place] [address] Chloride [Moles/Vol] 115 mmol/L High 98-109 [facility] Comment on above: Performed By: #### A BG #### [facility] ([id number]) [address] [place] [address] CO2 [Moles/Vol] 25 mmol/L Normal 22-32 [facility] Comment on above: Performed By: #### A BG #### [facility] ([id number]) [address] [place] [address] Creatinine [Mass/Vol] 0.97 mg/dL Normal 0.40-1.00 [facility] Comment on above: Result Comment: METH OD TRACEABLE TO IDMS STANDARD Performed By: #### A BG #### [facility] ([id number]) [address] [place] [address] GFR/1.73 sq M.predicted among non-blacks MDRD (S/P/Bld) [Vol rate/Area] 67 mL/min/{1.73_m2} Normal >59 [facility] Comment on above: Result Comment: Reported eGFR is based on the CKD-EPI 2020 equation that does not use a race coefficient. Performed By: #### A BG #### [facility] ([id number]) [address] [place] [address] Glucose [Mass/Vol] 98 mg/dL Normal 65-99 [facility] Comment on above: Performed By: #### A BG #### [facility] ([id number]) [address] [place] [address] Potassium [Moles/Vol] 3.3 mmol/L Low 3.5-5.0 [facility] Comment on above: Performed By: #### A BG #### [facility] ([id number]) [address] [place] [address] Protein [Mass/Vol] 6.5 g/dL Normal 6.0-8.0 [facility] Comment on above: Performed By: #### A BG #### [facility] ([id number]) [address] [place] [address] Sodium [Moles/Vol] 146 mmol/L Normal 134-146 [facility] Comment on above: Performed By: #### A BG #### [facility] ([id number]) [address] [place] [address] Urea nitrogen [Mass/Vol] 14 mg/dL Normal 5-23 [facility] Comment on above: Performed By: #### A BG #### [facility] ([id number]) [address] [place] [address] CRP [Mass/Vol]on 04-19-2023 C REACTIVE PROTEIN 6.1 mg/dL High 0.000-0.7 4 4 [facility] Comment on above: Performed By: #### A BG #### [facility] ([id number]) [address] [place] [address] Glucose Glucometer (BldC) [M ass/Vol]on 04-19-2023 Glucose [Mass/Vol] 176 mg/dL High 65-99 [facility] Glucose [Mass/Vol] 92 mg/dL Normal 65-99 [facility] Glucose [Mass/Vol] 94 mg/dL Normal 65-99 [facility] Glucose [Mass/Vol] 93 mg/dL Normal 65-99 [facility] Lactate (P yong) [Moles/Vol]o n 04-19-2023 Lactate [Moles/Vol] 0.9 mmol/L Normal 0.4-2.0 [facility] Comment on above: Performed By: #### A BG #### [facility] ([id number]) [address] [place] [address] Natriuretic peptide B [Mass/ Vol]on 04-19-2023 Natriuretic peptide B (Bld) [Mass/Vol] 25 pg/mL Normal <100.0 [facility] Comment on above: Performed By: #### A BG #### [facility] ([id number]) [address] [place] [address] POTASSIUMon 04-19-2023 Potassium [Moles/Vol] 3.6 mmol/L Normal 3.5-5.0 [facility] Comment on above: Performed By: #### A BG #### [facility] ([id number]) [address] [place] [address] XR CHEST 1 VWon 04-19-2023 XR CHEST 1 VW XR CHEST 1 VW CLINICAL INFORMATION: Dyspnea. TECHNIQUE: Chest, 1 view. COMPARISON: one day prior. FINDINGS Endotracheal tube terminates 4.5 cm above the miki. Enteric tube projects below the diaphragm. Left neck catheter terminates in superior SVC. Bibasilar pulmonary opacifications not significantly changed. IMPRESSION: * No significant interval change. Approved by Resident Elkin Warren MD on 04/19/2023 5:38 AM IVictor Hugo MD have personally reviewed the image(s) and agree with and/or edited the report Finalized by Victor Hugo Kim MD on 04/19/2023 5:41 AM Normal [facility] ARTERIAL BLOOD GASon 023 RAVINDRA'S TEST Normal [facility] Comment on above: Performed By: #### C , 06569-4, , CBCA #### [facility] ([id number]) [address] [facility] [place] [address] BASE,DEFICIT 1.0 MMOL/L Normal 0.0-2.0 [facility] Comment on above: Performed By: #### C LANA, 01464-6, , CBCA #### [facility] ([id number]) [address] [place] [address] Body temperature 98.6 [degF] Normal 37.0 [facility] Comment on above: Performed By: #### C LANA, 99981-7, , CBCA #### [facility] ([id number]) [address] [place] [address] HCO3 (Bld) [Moles/Vol] 24.3 mmol/L Normal 22-26 [facility] Comment on above: Performed By: #### C LANA, 66841-1, , CBCA #### [facility] ([id number]) [address] [facility] [place] [address] INSP. O2 CONC. 50 % Normal [facility] Comment on above: Performed By: #### C LANA, 79378-4, , CBCA #### [facility] ([id number]) [address] [place] [address] Oxygen (Bld) [Partial pressure] 71 mm[Hg] Low 80-100 [facility] Comment on above: Performed By: #### C LANA, 71942-0, 09168-6, CBCA #### [facility] ([id number]) [address] [place] [address] Oxygen saturation in Blood 94.0 % Normal >90 [facility] Comment on above: Performed By: #### C LANA, 46269-0, , CBCA #### [facility] ([id number]) [address] [place] [address] OXYGEN SOURCE Vent Normal [facility] Comment on above: Performed By: #### C LANA, 24395-3, , CBCA #### [facility] ([id number]) [address] [place] [address] PCO2 41.7 MMHG Normal 35-45 [facility] Comment on above: Performed By: #### C LANA, 86513-7, , CBCA #### [facility] ([id number]) [address] [place] [address] pH (Bld) 7.373 [pH] Normal 7.350-7.45 0 [facility] Comment on above: Performed By: #### C LANA, 18519-1, , CBCA #### [facility] ([id number]) [address] [place] [address] SAMPLE SITE LRad Normal [facility] Comment on above: Performed By: #### C LANA, 25785-0, , CBCA #### [facility] ([id number]) [address] [place] [address] SAMPLE TYPE ARTERIAL Normal [facility] Comment on above: Performed By: #### C LANA, 65385-2, , CBCA #### [facility] ([id number]) [address] [place] [address] CBC AND AUTO DIFFon 04-18-20 23 ABSOLUTE BASOPHIL 0.0 X10E9/L Normal 0.0-0.2 [facility] Comment on above: Performed By: #### C LANA, 99141-9, , CBCA #### [facility] ([id number]) [address] [place] [address] ABSOLUTE NEUTROPHIL 2.5 X10E9/L Normal 1.5-6.6 [facility] Comment on above: Performed By: #### C LANA, 95020-4, , CBCA #### [facility] ([id number]) [address] [place] [address] Anisocytosis Ql (Bld) 2+ Abnormal NONE [facility] Comment on above: Performed By: #### C LANA, 86220-9, , CBCA #### [facility] ([id number]) [address] [place] [address] Basophils/100 WBC (Bld) 0.2 % Normal [facility] Comment on above: Performed By: #### C LANA, 64542-1, , CBCA #### [facility] ([id number]) [address] [place] [address] Eosinophils (Bld) [#/Vol] 0.0 10*3/uL Normal 0.0-0.4 [facility] Comment on above: Performed By: #### C LANA, 28025-7, , CBCA #### [facility] ([id number]) [address] [place] [address] Eosinophils/100 WBC (Bld) 0.1 % Normal [facility] Comment on above: Performed By: #### C LANA, 43576-5, , CBCA #### [facility] ([id number]) [address] [place] [address] Erythrocyte distribution width (RBC) [Ratio] 22.1 % High 11.5-15.0 [facility] Comment on above: Performed By: #### C LANA, 07878-5, , CBCA #### [facility] ([id number]) [address] [place] [address] Hematocrit (Bld) [Volume fraction] 31.1 % Low 35-47 [facility] Comment on above: Performed By: #### C LANA, 39824-1, , CBCA #### [facility] ([id number]) [address] [place] [address] Hemoglobin (Bld) [Mass/Vol] 9.9 g/dL Low 11.7-15.5 [facility] Comment on above: Performed By: #### C LANA, 20237-5, , CBCA #### [facility] ([id number]) [address] [facility] [place] [address] Lymphocytes (Bld) [#/Vol] 1.2 10*3/uL Normal 1.0-3.5 [facility] Comment on above: Performed By: #### Javdi SCHWARTZ, 17897-9, , CBCA #### [facility] ([id number]) [address] [place] [address] Lymphocytes/100 WBC (Bld) 30.6 % Normal [facility] Comment on above: Performed By: #### Javid SCHWARTZ, 64221-6, , CBCA #### [facility] ([id number]) [address] [place] [address] MCH (RBC) [Entitic mass] 27.0 pg Normal 27-34 [facility] Comment on above: Performed By: #### C LANA, 59981-0, , CBCA #### [facility] ([id number]) [address] [place] [address] MCHC (RBC) [Mass/Vol] 31.8 g/dL Low 32-36 [facility] Comment on above: Performed By: #### C LANA, 33955-4, , CBCA #### [facility] ([id number]) [address] [place] [address] MCV (RBC) [Entitic vol] 85 fL Normal 80-100 [facility] Comment on above: Performed By: #### C MP, 27931-6, , CBCA #### [facility] ([id number]) [address] [place] [address] Monocytes (Bld) [#/Vol] 0.3 10*3/uL Normal 0-0.9 [facility] Comment on above: Performed By: #### C MP, 87089-3, 80484-4, CBCA #### [facility] ([id number]) [address] [place] [address] Monocytes/100 WBC (Bld) 7.4 % Normal [facility] Comment on above: Performed By: #### C MP, 41738-5, , CBCA #### [facility] ([id number]) [address] [place] [address] Neutrophils/100 WBC (Bld) 61.7 % Normal [facility] Comment on above: Performed By: #### C MP, 49605-0, , CBCA #### [facility] ([id number]) [address] [place] [address] Platelet mean volume (Bld) [Entitic vol] 7.5 fL Normal 7-12 [facility] Comment on above: Performed By: #### C MP, 95527-9, , CBCA #### [facility] ([id number]) [address] [place] [address] Platelets (Bld) [#/Vol] 317 10*3/uL Normal 150-450 [facility] Comment on above: Performed By: #### C MP, 34920-7, , CBCA #### [facility] ([id number]) [address] [place] [address] RBC COUNT 3.65 X10E12/L Low 3.80-5.20 [facility] Comment on above: Performed By: #### C MP, 47441-8, , CBCA #### [facility] ([id number]) [address] [place] [address] WBC (Bld) [#/Vol] 4.0 10*3/uL Normal 4.0-11.0 [facility] Comment on above: Performed By: #### C LANA, 99721-6, , CBCA #### [facility] ([id number]) [address] [place] [address] COMPREHENSIVE METABOLIC PANE [facility] 04-18-2023 Albumin [Mass/Vol] 2.4 g/dL Low 3.2-5.3 [facility] Comment on above: Performed By: #### C LANA, 78732-0, , CBCA #### [facility] ([id number]) [address] [place] [address] ALP [Catalytic activity/Vol] 64 U/L Normal 39-130 [facility] Comment on above: Performed By: #### C LANA, 38006-1, , CBCA #### [facility] ([id number]) [address] [place] [address] ALT [Catalytic activity/Vol] 18 U/L Normal 0-31 [facility] Comment on above: Performed By: #### C LANA, 10909-3, , CBCA #### [facility] ([id number]) [address] [place] [address] Anion gap [Moles/Vol] 7 mmol/L Normal 5-15 [facility] Comment on above: Performed By: #### C LANA, 43326-7, , CBCA #### [facility] ([id number]) [address] [place] [address] AST [Catalytic activity/Vol] 20 U/L Normal 0-41 [facility] Comment on above: Performed By: #### C LANA, 84239-9, , CBCA #### [facility] ([id number]) [address] [place] [address] Bilirubin [Mass/Vol] 0.4 mg/dL Normal 0.3-1.2 [facility] Comment on above: Performed By: #### C LANA, 07617-0, , CBCA #### [facility] ([id number]) [address] [place] [address] Calcium [Mass/Vol] 7.0 mg/dL Low 8.5-10.5 [facility] Comment on above: Performed By: #### C LANA, 93475-7, , CBCA #### [facility] ([id number]) [address] [place] [address] Chloride [Moles/Vol] 114 mmol/L High 98-109 [facility] Comment on above: Performed By: #### C LANA, 75435-2, , CBCA #### [facility] ([id number]) [address] [place] [address] CO2 [Moles/Vol] 25 mmol/L Normal 22-32 [facility] Comment on above: Performed By: #### C LANA, 04157-8, , CBCA #### [facility] ([id number]) [address] [place] [address] Creatinine [Mass/Vol] 0.83 mg/dL Normal 0.40-1.00 [facility] Comment on above: Result Comment: METH OD TRACEABLE TO IDMS STANDARD Performed By: #### C LANA, 32583-3, , CBCA #### [facility] ([id number]) [address] [place] [address] GFR/1.73 sq M.predicted among non-blacks MDRD (S/P/Bld) [Vol rate/Area] 81 mL/min/{1.73_m2} Normal >59 [facility] Comment on above: Result Comment: Reported eGFR is based on the CKD-EPI 2020 equation that does not use a race coefficient. Performed By: #### C LANA, 75091-7, , CBCA #### [facility] ([id number]) [address] [place] [address] Glucose [Mass/Vol] 100 mg/dL High 65-99 [facility] Comment on above: Performed By: #### C LANA, 42836-4, , CBCA #### [facility] ([id number]) [address] [place] [address] Potassium [Moles/Vol] 4.7 mmol/L Normal 3.5-5.0 [facility] Comment on above: Performed By: #### C LANA, 91886-8, , CBCA #### [facility] ([id number]) [address] [place] [address] Protein [Mass/Vol] 6.4 g/dL Normal 6.0-8.0 [facility] Comment on above: Performed By: #### C LANA, 10067-3, , CBCA #### [facility] ([id number]) [address] [place] [address] Sodium [Moles/Vol] 146 mmol/L Normal 134-146 [facility] Comment on above: Performed By: #### Javid SCHWARTZ, 12867-5, , CBCA #### [facility] ([id number]) [address] [place] [address] Urea nitrogen [Mass/Vol] 12 mg/dL Normal 5-23 [facility] Comment on above: Performed By: #### C LANA, 90854-7, , CBCA #### [facility] ([id number]) [address] [place] [address] Calcium.ionized (Bld) [Moles /Vol]on 04-18-2023 [facility] 4.8 mg/dL Normal 4.5-5.3 [facility] Comment on above: Performed By: #### C LANA, 91337-8, , CBCA #### [facility] ([id number]) [address] [place] [address] Glucose Glucometer (BldC) [M ass/Vol]on 04-18-2023 Glucose [Mass/Vol] 126 mg/dL High 65-99 [facility] Glucose [Mass/Vol] 94 mg/dL Normal 65-99 [facility] Glucose [Mass/Vol] 104 mg/dL High 65-99 [facility] XR CHEST 1 VWon 04-18-2023 XR CHEST 1 VW XR CHEST 1 VW Single view chest History: Difficulty breathing, shortness of breath. Covid positive. Comparison: 04/17/2023 Findings: Similar loop configuration left IJ catheter. Similar ET tube. Partially imaged enteric tube. Median sternotomy. Stable enlarged cardiac silhouette. Bandlike opacity right lower lobe, likely atelectatic. Small effusions. No measurable pneumothorax. Right costophrenic angle excluded from [id number]. Impression: 1. Persistent effusions, with or without underlying pneumonia. 2. Looped configuration left IJ catheter and correlate with function. Finalized by Victor Hugo Gustafson MD on 04/18/2023 5:44 AM Normal [facility] ARTERIAL BLOOD GASon 023 RAVINDRA'S TEST Pass Normal [facility] Comment on above: Performed By: #### C LANA, 08301-2, , CBCA #### [facility] ([id number]) [address] [place] [address] BASE,DEFICIT 1.0 MMOL/L Normal 0.0-2.0 [facility] Comment on above: Performed By: #### C LANA, 04785-8, , CBCA #### [facility] ([id number]) [address] [place] [address] Body temperature 98.6 [degF] Normal 37.0 [facility] Comment on above: Performed By: #### C LANA, 45855-4, , CBCA #### [facility] ([id number]) [address] [place] [address] HCO3 (Bld) [Moles/Vol] 24.3 mmol/L Normal 22-26 [facility] Comment on above: Performed By: #### C LANA, 20563-5, , CBCA #### [facility] ([id number]) [address] [place] [address] INSP. O2 CONC. 50 % Normal [facility] Comment on above: Performed By: #### C LANA, [id number], , CBCA #### [facility] ([id number]) [address] [place] [address] Oxygen (Bld) [Partial pressure] 73 mm[Hg] Low 80-100 [facility] Comment on above: Performed By: #### C LANA, 80584-4, , CBCA #### [facility] ([id number]) [address] [place] [address] Oxygen saturation in Blood 94.0 % Normal >90 [facility] Comment on above: Performed By: #### C LANA, 40951-0, , CBCA #### [facility] ([id number]) [address] [place] [address] OXYGEN SOURCE [facility] Comment on above: Performed By: #### C LANA, 97025-1, , CBCA #### [facility] ([id number]) [address] [place] [address] PCO2 44.9 MMHG Normal 35-45 [facility] Comment on above: Performed By: #### C LANA, 29996-1, , CBCA #### [facility] ([id number]) [address] [place] [address] pH (Bld) 7.342 [pH] Low 7.350-7.45 0 [facility] Comment on above: Performed By: #### C LANA, 81698-8, , CBCA #### [facility] ([id number]) [address] [place] [address] SAMPLE SITE RRad Normal [facility] Comment on above: Performed By: #### C LANA, 53810-7, , CBCA #### [facility] ([id number]) [address] [place] [address] SAMPLE TYPE ARTERIAL Normal [facility] Comment on above: Performed By: #### C LANA, 85692-0, , CBCA #### [facility] ([id number]) [address] [place] [address] BASIC METABOLIC PANLon 04-17 Anion gap [Moles/Vol] 8 mmol/L Normal 5-15 [facility] Comment on above: Performed By: #### C LANA, 08748-1, , CBCA #### [facility] ([id number]) [address] [place] [address] Calcium [Mass/Vol] 8.3 mg/dL Low 8.5-10.5 [facility] Comment on above: Performed By: #### C LANA, 74299-3, , CBCA #### [facility] ([id number]) [address] [place] [address] Chloride [Moles/Vol] 114 mmol/L High 98-109 [facility] Comment on above: Performed By: #### C LANA, 42562-5, , CBCA #### [facility] ([id number]) [address] [place] [address] CO2 [Moles/Vol] 23 mmol/L Normal 22-32 [facility] Comment on above: Performed By: #### C LANA, 69821-5, , CBCA #### [facility] ([id number]) [address] [place] [address] Creatinine [Mass/Vol] 0.96 mg/dL Normal 0.40-1.00 [facility] Comment on above: Result Comment: METH OD TRACEABLE TO IDMS STANDARD Performed By: #### C LNAA, 77011-8, , CBCA #### [facility] ([id number]) [address] [place] [address] GFR/1.73 sq M.predicted among non-blacks MDRD (S/P/Bld) [Vol rate/Area] 68 mL/min/{1.73_m2} Normal >59 [facility] Comment on above: Result Comment: Reported eGFR is based on the CKD-EPI 2020 equation that does not use a race coefficient. Performed By: #### C LANA, 26831-2, 46758-6, CBCA #### [facility] ([id number]) [address] [place] [address] Glucose [Mass/Vol] 164 mg/dL High 65-99 [facility] Comment on above: Performed By: #### C LANA, 83411-7, , CBCA #### [facility] ([id number]) [address] [place] [address] Potassium [Moles/Vol] 4.3 mmol/L Normal 3.5-5.0 [facility] Comment on above: Performed By: #### C LANA, 60250-0, , CBCA #### [facility] ([id number]) [address] [place] [address] Sodium [Moles/Vol] 145 mmol/L Normal 134-146 [facility] Comment on above: Performed By: #### C LANA, 42713-4, , CBCA #### [facility] ([id number]) [address] [place] [address] Urea nitrogen [Mass/Vol] 11 mg/dL Normal 5-23 [facility] Comment on above: Performed By: #### C LANA, 70808-1, , CBCA #### [facility] ([id number]) [address] [place] [address] CBC AND AUTO DIFFon 04-17-20 ABSOLUTE BASOPHIL 0.0 X10E9/L Normal 0.0-0.2 [facility] Comment on above: Performed By: #### C LANA, 23966-6, , CBCA #### [facility] ([id number]) [address] [place] [address] ABSOLUTE NEUTROPHIL 2.3 X10E9/L Normal 1.5-6.6 [facility] Comment on above: Performed By: #### C LANA, 47320-3, , CBCA #### [facility] ([id number]) [address] [place] [address] Anisocytosis Ql (Bld) 2+ Abnormal NONE [facility] Comment on above: Performed By: #### C LANA, 49459-9, , CBCA #### [facility] ([id number]) [address] [facility] [place] [address] Basophils/100 WBC (Bld) 0.3 % Normal [facility] Comment on above: Performed By: #### C LANA, 67111-0, , CBCA #### [facility] ([id number]) [address] [facility] [place] [address] Eosinophils (Bld) [#/Vol] 0.0 10*3/uL Normal 0.0-0.4 [facility] Comment on above: Performed By: #### C LANA, 20401-6, , CBCA #### [facility] ([id number]) [address] [facility] [place] [address] Eosinophils/100 WBC (Bld) 0.2 % Normal [facility] Comment on above: Performed By: #### C LANA, 57457-8, , CBCA #### [facility] ([id number]) [address] [facility] [place] [address] Erythrocyte distribution width (RBC) [Ratio] 22.2 % High 11.5-15.0 [facility] Comment on above: Performed By: #### C LANA, 39328-5, , CBCA #### [facility] ([id number]) [address] [place] [address] Hematocrit (Bld) [Volume fraction] 30.6 % Low 35-47 [facility] Comment on above: Performed By: #### C LANA, 18134-7, , CBCA #### [facility] ([id number]) [address] [place] [address] Hemoglobin (Bld) [Mass/Vol] 9.9 g/dL Low 11.7-15.5 [facility] Comment on above: Performed By: #### C LANA, 35010-1, , CBCA #### [facility] ([id number]) [address] [place] [address] Lymphocytes (Bld) [#/Vol] 1.0 10*3/uL Normal 1.0-3.5 [facility] Comment on above: Performed By: #### C ALNA, 55685-4, , CBCA #### [facility] ([id number]) [address] [facility] [place] [address] Lymphocytes/100 WBC (Bld) 29.2 % Normal [facility] Comment on above: Performed By: #### C LANA, 99815-5, , CBCA #### [facility] ([id number]) [address] [place] [address] MCH (RBC) [Entitic mass] 27.8 pg Normal 27-34 [facility] Comment on above: Performed By: #### C LANA, 30662-0, , CBCA #### [facility] ([id number]) [address] [place] [address] MCHC (RBC) [Mass/Vol] 32.5 g/dL Normal 32-36 [facility] Comment on above: Performed By: #### C LANA, 54891-6, , CBCA #### [facility] ([id number]) [address] [place] [address] MCV (RBC) [Entitic vol] 86 fL Normal 80-100 [facility] Comment on above: Performed By: #### C LANA, 78418-0, , CBCA #### [facility] ([id number]) [address] [place] [address] Monocytes (Bld) [#/Vol] 0.2 10*3/uL Normal 0-0.9 [facility] Comment on above: Performed By: #### C LANA, 86613-4, , CBCA #### [facility] ([id number]) [address] [place] [address] Monocytes/100 WBC (Bld) 5.8 % Normal [facility] Comment on above: Performed By: #### C LANA, 81499-4, , CBCA #### [facility] ([id number]) [address] [place] [address] Neutrophils/100 WBC (Bld) 64.5 % Normal [facility] Comment on above: Performed By: #### C LANA, 08911-0, , CBCA #### [facility] ([id number]) [address] [place] [address] Platelet mean volume (Bld) [Entitic vol] 7.7 fL Normal 7-12 [facility] Comment on above: Performed By: #### C LANA, 14355-4, , CBCA #### [facility] ([id number]) [address] [place] [address] Platelets (Bld) [#/Vol] 295 10*3/uL Normal 150-450 [facility] Comment on above: Performed By: #### Javid SCHWARTZ, 28304-0, , CBCA #### [facility] ([id number]) [address] [place] [address] RBC COUNT 3.57 X10E12/L Low 3.80-5.20 [facility] Comment on above: Performed By: #### C LANA, 33928-2, , CBCA #### [facility] ([id number]) [address] [place] [address] WBC (Bld) [#/Vol] 3.6 10*3/uL Low 4.0-11.0 [facility] Comment on above: Performed By: #### C LANA, 82314-6, , CBCA #### [facility] ([id number]) [address] [place] [address] ABSOLUTE BASOPHIL 0.0 X10E9/L Normal 0.0-0.2 [facility] Comment on above: Performed By: #### C LANA, 32259-6, , CBCA #### [facility] ([id number]) [address] [place] [address] ABSOLUTE NEUTROPHIL 2.1 X10E9/L Normal 1.5-6.6 [facility] Comment on above: Performed By: #### C LANA, 23935-2, , CBCA #### [facility] ([id number]) [address] [place] [address] Anisocytosis Ql (Bld) 2+ Abnormal NONE [facility] Comment on above: Performed By: #### C LANA, 80587-9, , CBCA #### [facility] ([id number]) [address] [place] [address] Basophils/100 WBC (Bld) 0.3 % Normal [facility] Comment on above: Performed By: #### C LANA, 54483-5, , CBCA #### [facility] ([id number]) [address] [place] [address] Eosinophils (Bld) [#/Vol] 0.0 10*3/uL Normal 0.0-0.4 [facility] Comment on above: Performed By: #### C LANA, 52755-8, , CBCA #### [facility] ([id number]) [address] [place] [address] Eosinophils/100 WBC (Bld) 0.1 % Normal [facility] Comment on above: Performed By: #### C LANA, 70417-0, , CBCA #### [facility] ([id number]) [address] [place] [address] Erythrocyte distribution width (RBC) [Ratio] 22.0 % High 11.5-15.0 [facility] Comment on above: Performed By: #### C LANA, 95994-1, , CBCA #### [facility] ([id number]) [address] [place] [address] Hematocrit (Bld) [Volume fraction] 31.4 % Low 35-47 [facility] Comment on above: Performed By: #### C LANA, 21313-6, , CBCA #### [facility] ([id number]) [address] [place] [address] Hemoglobin (Bld) [Mass/Vol] 10.2 g/dL Low 11.7-15.5 [facility] Comment on above: Performed By: #### Javid SCHWARTZ, 81915-9, , CBCA #### [facility] ([id number]) [address] [place] [address] Lymphocytes (Bld) [#/Vol] 0.9 10*3/uL Low 1.0-3.5 [facility] Comment on above: Performed By: #### C LANA, 42773-1, , CBCA #### [facility] ([id number]) [address] [place] [address] Lymphocytes/100 WBC (Bld) 28.7 % Normal [facility] Comment on above: Performed By: #### C LANA, 75104-8, , CBCA #### [facility] ([id number]) [address] [place] [address] MCH (RBC) [Entitic mass] 27.4 pg Normal 27-34 [facility] Comment on above: Performed By: #### C LANA, 00219-0, , CBCA #### [facility] ([id number]) [address] [place] [address] MCHC (RBC) [Mass/Vol] 32.4 g/dL Normal 32-36 [facility] Comment on above: Performed By: #### C LANA, 75044-9, , CBCA #### [facility] ([id number]) [address] [place] [address] MCV (RBC) [Entitic vol] 84 fL Normal 80-100 [facility] Comment on above: Performed By: #### C LANA, 83489-6, , CBCA #### [facility] ([id number]) [address] [place] [address] Monocytes (Bld) [#/Vol] 0.2 10*3/uL Normal 0-0.9 [facility] Comment on above: Performed By: #### C LANA, 47308-0, , CBCA #### [facility] ([id number]) [address] [place] [address] Monocytes/100 WBC (Bld) 6.9 % Normal [facility] Comment on above: Performed By: #### C LANA, 28224-2, , CBCA #### [facility] ([id number]) [address] [place] [address] Neutrophils/100 WBC (Bld) 64.0 % Normal [facility] Comment on above: Performed By: #### C LANA, 63711-1, , CBCA #### [facility] ([id number]) [address] [place] [address] Platelet mean volume (Bld) [Entitic vol] 7.8 fL Normal 7-12 [facility] Comment on above: Performed By: #### C LANA, 13595-9, , CBCA #### [facility] ([id number]) [address] [place] [address] Platelets (Bld) [#/Vol] 301 10*3/uL Normal 150-450 [facility] Comment on above: Performed By: #### C LANA, 31810-9, , CBCA #### [facility] ([id number]) [address] [place] [address] RBC COUNT 3.72 X10E12/L Low 3.80-5.20 [facility] Comment on above: Performed By: #### C LANA, 47470-0, , CBCA #### [facility] ([id number]) [address] [place] [address] WBC (Bld) [#/Vol] 3.3 10*3/uL Low 4.0-11.0 [facility] Comment on above: Performed By: #### C LANA, 40849-2, , CBCA #### [facility] ([id number]) [address] [place] [address] COMPREHENSIVE METABOLIC PANE [facility] 04-17-2023 Albumin [Mass/Vol] 2.5 g/dL Low 3.2-5.3 [facility] Comment on above: Performed By: #### C LANA, 98918-9, , CBCA #### [facility] ([id number]) [address] [place] [address] ALP [Catalytic activity/Vol] 68 U/L Normal 39-130 [facility] Comment on above: Performed By: #### C LANA, 59218-1, , CBCA #### [facility] ([id number]) [address] [place] [address] ALT [Catalytic activity/Vol] 21 U/L Normal 0-31 [facility] Comment on above: Performed By: #### C LANA, 51661-3, , CBCA #### [facility] ([id number]) [address] [place] [address] Anion gap [Moles/Vol] 5 mmol/L Normal 5-15 [facility] Comment on above: Performed By: #### C LANA, 45470-7, , CBCA #### [facility] ([id number]) [address] [place] [address] AST [Catalytic activity/Vol] 26 U/L Normal 0-41 [facility] Comment on above: Performed By: #### C LANA, 16392-4, , CBCA #### [facility] ([id number]) [address] [place] [address] Bilirubin [Mass/Vol] 0.5 mg/dL Normal 0.3-1.2 [facility] Comment on above: Performed By: #### C LANA, 98786-2, , CBCA #### [facility] ([id number]) [address] [place] [address] Calcium [Mass/Vol] 8.2 mg/dL Low 8.5-10.5 [facility] Comment on above: Performed By: #### C LANA, 78911-3, , CBCA #### [facility] ([id number]) [address] [place] [address] Chloride [Moles/Vol] 116 mmol/L High 98-109 [facility] Comment on above: Performed By: #### C LANA, 30080-0, , CBCA #### [facility] ([id number]) [address] [place] [address] CO2 [Moles/Vol] 25 mmol/L Normal 22-32 [facility] Comment on above: Performed By: #### C LANA, 21542-2, , CBCA #### [facility] ([id number]) [address] [place] [address] Creatinine [Mass/Vol] 0.92 mg/dL Normal 0.40-1.00 [facility] Comment on above: Result Comment: METH OD TRACEABLE TO IDMS STANDARD Performed By: #### C LANA, 01940-6, , CBCA #### [facility] ([id number]) [address] [place] [address] GFR/1.73 sq M.predicted among non-blacks MDRD (S/P/Bld) [Vol rate/Area] 71 mL/min/{1.73_m2} Normal >59 [facility] Comment on above: Result Comment: Reported eGFR is based on the CKD-EPI 2020 equation that does not use a race coefficient. Performed By: #### C LANA, 24319-6, , CBCA #### [facility] ([id number]) [address] [place] [address] Glucose [Mass/Vol] 109 mg/dL High 65-99 [facility] Comment on above: Performed By: #### C ALNA, 55036-8, , CBCA #### [facility] ([id number]) [address] [place] [address] Potassium [Moles/Vol] 3.6 mmol/L Normal 3.5-5.0 [facility] Comment on above: Performed By: #### Javid SCHWARTZ, 00127-6, , CBCA #### [facility] ([id number]) [address] [place] [address] Protein [Mass/Vol] 6.6 g/dL Normal 6.0-8.0 [facility] Comment on above: Performed By: #### C LANA, 48731-0, , CBCA #### [facility] ([id number]) [address] [place] [address] Sodium [Moles/Vol] 146 mmol/L Normal 134-146 [facility] Comment on above: Performed By: #### C LANA, 16652-1, , CBCA #### [facility] ([id number]) [address] [place] [address] Urea nitrogen [Mass/Vol] 10 mg/dL Normal 5-23 [facility] Comment on above: Performed By: #### C LANA, 21873-3, , CBCA #### [facility] ([id number]) [address] [place] [address] Calcium.ionized (Bld) [Moles /Vol]on 04-17-2023 PORTABLE ICA 4.8 mg/dL Normal 4.5-5.3 [facility] Comment on above: Performed By: #### C LANA, 44101-0, , CBCA #### [facility] ([id number]) [address] [place] [address] Glucose Glucometer (BldC) [M ass/Vol]on 04-17-2023 Glucose [Mass/Vol] 111 mg/dL High 65-99 [facility] Glucose [Mass/Vol] 105 mg/dL High 65-99 [facility] MAGNESIUMon 04-17-2023 Magnesium [Mass/Vol] 2.4 mg/dL Normal 1.8-2.6 [facility] Comment on above: Performed By: #### C LANA, 34849-4, , CBCA #### [facility] ([id number]) [address] [place] [address] Magnesium [Mass/Vol] 2.5 mg/dL Normal 1.8-2.6 [facility] Comment on above: Performed By: #### C LANA, 92127-6, , CBCA #### [facility] ([id number]) [address] [place] [address] PHOSPHORUSon 04-17-2023 Phosphate [Mass/Vol] 2.5 mg/dL Normal 2.4-4.9 [facility] Comment on above: Performed By: #### C LANA, 14446-7, , CBCA #### [facility] ([id number]) [address] [place] [address] POTASSIUMon 04-17-2023 Potassium [Moles/Vol] 3.9 mmol/L Normal 3.5-5.0 [facility] Comment on above: Performed By: #### C LANA, 10490-4, , CBCA #### [facility] ([id number]) [address] [place] [address] XR CHEST 1 VWon 04-17-2023 XR CHEST 1 VW XR CHEST 1 VW CHEST 1 VIEW HISTORY: Acute respiratory failure COMPARISON: 04/16/2023 FINDINGS: Stable lines and tubes. Mild pulmonary vascular congestion/edema. Bibasilar opacities may represent atelectasis or pneumonia, improved. No pleural effusions or pneumothorax. IMPRESSION: * Improved bibasilar opacities. No other significant change. Finalized by Dharmesh Graves MD on 04/17/2023 5:44 AM Normal [facility] ARTERIAL BLOOD GASon 023 RAVINDRA'S TEST Pass Normal [facility] Comment on above: Performed By: #### C LANA, 52002-4, , CBCA #### [facility] ([id number]) [address] [place] [address] BASE,DEFICIT 3.0 MMOL/L High 0.0-2.0 [facility] Comment on above: Performed By: #### Javid SCHWARTZ 38165-1, , CBCA #### [facility] ([id number]) [address] [place] [address] Body temperature 98.6 [degF] Normal 37.0 [facility] Comment on above: Performed By: #### C LANA, 37123-1, , CBCA #### [facility] ([id number]) [address] [place] [address] HCO3 (Bld) [Moles/Vol] 22.9 mmol/L Normal 22-26 [facility] Comment on above: Performed By: #### C LANA, 42288-9, , CBCA #### [facility] ([id number]) [address] [place] [address] INSP. O2 CONC. 60 % Normal [facility] Comment on above: Performed By: #### C LANA, 64962-4, , CBCA #### [facility] ([id number]) [address] [place] [address] Oxygen (Bld) [Partial pressure] 76 mm[Hg] Low 80-100 [facility] Comment on above: Performed By: #### C LANA, 63655-4, 07665-1, CBCA #### [facility] ([id number]) [address] [place] [address] Oxygen saturation in Blood 94.0 % Normal >90 [facility] Comment on above: Performed By: #### C LANA, 52748-7, 20622-4, CBCA #### [facility] ([id number]) [address] [place] [address] OXYGEN SOURCE Vent Normal [facility] Comment on above: Performed By: #### C LANA, 77864-7, , CBCA #### [facility] ([id number]) [address] [place] [address] PCO2 42.7 MMHG Normal 35-45 [facility] Comment on above: Performed By: #### C LANA, 15324-2, , CBCA #### [facility] ([id number]) [address] [place] [address] pH (Bld) 7.336 [pH] Low 7.350-7.45 0 [facility] Comment on above: Performed By: #### C LANA, 02014-2, , CBCA #### [facility] ([id number]) [address] [place] [address] SAMPLE SITE LRad Normal [facility] Comment on above: Performed By: #### C LANA, 21243-6, , CBCA #### [facility] ([id number]) [address] [place] [address] SAMPLE TYPE ARTERIAL Normal [facility] Comment on above: Performed By: #### C LANA, 57309-1, , CBCA #### [facility] ([id number]) [address] [place] [address] CBC AND AUTO DIFFon 12-21-20 23 ABSOLUTE BASOPHIL 0.0 X10E9/L Normal 0.0-0.2 [facility] Comment on above: Performed By: #### C LANA, 62817-5, , CBCA #### [facility] ([id number]) [address] [place] [address] ABSOLUTE NEUTROPHIL 3.2 X10E9/L Normal 1.5-6.6 [facility] Comment on above: Performed By: #### C LAAN, 25830-5, , CBCA #### [facility] ([id number]) [address] [place] [address] Anisocytosis Ql (Bld) 2+ Abnormal NONE [facility] Comment on above: Performed By: #### C LANA, 48146-0, , CBCA #### [facility] ([id number]) [address] [place] [address] Basophils/100 WBC (Bld) 0.2 % Normal [facility] Comment on above: Performed By: #### C LANA, 57582-5, , CBCA #### [facility] ([id number]) [address] [place] [address] Eosinophils (Bld) [#/Vol] 0.0 10*3/uL Normal 0.0-0.4 [facility] Comment on above: Performed By: #### C LANA, 63302-2, , CBCA #### [facility] ([id number]) [address] [place] [address] Eosinophils/100 WBC (Bld) 0.0 % Normal [facility] Comment on above: Performed By: #### C LANA, 96406-3, , CBCA #### [facility] ([id number]) [address] [place] [address] Erythrocyte distribution width (RBC) [Ratio] 22.0 % High 11.5-15.0 [facility] Comment on above: Performed By: #### C LANA, 57930-2, , CBCA #### [facility] ([id number]) [address] [place] [address] Hematocrit (Bld) [Volume fraction] 27.6 % Low 35-47 [facility] Comment on above: Performed By: #### C LANA, 92521-1, , CBCA #### [facility] ([id number]) [address] [place] [address] Hemoglobin (Bld) [Mass/Vol] 8.8 g/dL Low 11.7-15.5 [facility] Comment on above: Performed By: #### C LANA, 59532-2, , CBCA #### [facility] ([id number]) [address] [place] [address] Lymphocytes (Bld) [#/Vol] 0.7 10*3/uL Low 1.0-3.5 [facility] Comment on above: Performed By: #### C LANA, 29379-7, , CBCA #### [facility] ([id number]) [address] [place] [address] Lymphocytes/100 WBC (Bld) 17.8 % Normal [facility] Comment on above: Performed By: #### Javid SCHWARTZ, 58452-2, , CBCA #### [facility] ([id number]) [address] [place] [address] MCH (RBC) [Entitic mass] 27.3 pg Normal 27-34 [facility] Comment on above: Performed By: #### C LANA, 98025-5, , CBCA #### [facility] ([id number]) [address] [place] [address] MCHC (RBC) [Mass/Vol] 31.9 g/dL Low 32-36 [facility] Comment on above: Performed By: #### C LANA, 96453-4, , CBCA #### [facility] ([id number]) [address] [place] [address] MCV (RBC) [Entitic vol] 86 fL Normal 80-100 [facility] Comment on above: Performed By: #### C MP, 97127-5, 25792-7, CBCA #### [facility] ([id number]) [address] [place] [address] Monocytes (Bld) [#/Vol] 0.2 10*3/uL Normal 0-0.9 [facility] Comment on above: Performed By: #### C MP, 04870-7, 04946-1, CBCA #### [facility] ([id number]) [address] [place] [address] Monocytes/100 WBC (Bld) 4.7 % Normal [facility] Comment on above: Performed By: #### C LANA, 37176-9, , CBCA #### [facility] ([id number]) [address] [place] [address] Neutrophils/100 WBC (Bld) 77.3 % Normal [facility] Comment on above: Performed By: #### C LANA, 16049-9, , CBCA #### [facility] ([id number]) [address] [place] [address] Platelet mean volume (Bld) [Entitic vol] 7.6 fL Normal 7-12 [facility] Comment on above: Performed By: #### C LANA, 86568-9, , CBCA #### [facility] ([id number]) [address] [place] [address] Platelets (Bld) [#/Vol] 248 10*3/uL Normal 150-450 [facility] Comment on above: Performed By: #### [place], 08450-7, , CBCA #### [facility] ([id number]) [address] [place] [address] RBC COUNT 3.22 X10E12/L Low 3.80-5.20 [facility] Comment on above: Performed By: #### [place], [address]-0, , CBCA #### [facility] ([id number]) [address] [place] [address] WBC (Bld) [#/Vol] 4.2 10*3/uL Normal 4.0-11.0 [facility] Comment on above: Performed By: #### C LANA, 02998-5, , CBCA #### [facility] ([id number]) [address] [place] [address] COMPREHENSIVE METABOLIC PANE Meek 04-16-2023 Albumin [Mass/Vol] 2.4 g/dL Low 3.2-5.3 [facility] Comment on above: Performed By: #### C LANA, 54897-1, , CBCA #### [facility] ([id number]) [address] [place] [address] ALP [Catalytic activity/Vol] 61 U/L Normal 39-130 [facility] Comment on above: Performed By: #### C LANA, 37608-6, , CBCA #### [facility] ([id number]) [address] [place] [address] ALT [Catalytic activity/Vol] 20 U/L Normal 0-31 [facility] Comment on above: Performed By: #### C LANA, 04384-1, , CBCA #### [facility] ([id number]) [address] [place] [address] Anion gap [Moles/Vol] 6 mmol/L Normal 5-15 [facility] Comment on above: Performed By: #### C LANA, 71669-1, , CBCA #### [facility] ([id number]) [address] [place] [address] AST [Catalytic activity/Vol] 25 U/L Normal 0-41 [facility] Comment on above: Performed By: #### C LANA, 32077-5, , CBCA #### [facility] ([id number]) [address] [place] [address] Bilirubin [Mass/Vol] 0.6 mg/dL Normal 0.3-1.2 [facility] Comment on above: Performed By: #### C LANA, 07347-6, , CBCA #### [facility] ([id number]) [address] [place] [address] Calcium [Mass/Vol] 8.2 mg/dL Low 8.5-10.5 [facility] Comment on above: Performed By: #### C LANA, 66107-0, , CBCA #### [facility] ([id number]) [address] [place] [address] Chloride [Moles/Vol] 115 mmol/L High 98-109 [facility] Comment on above: Performed By: #### C LANA, 67710-9, , CBCA #### [facility] ([id number]) [address] [place] [address] CO2 [Moles/Vol] 24 mmol/L Normal 22-32 [facility] Comment on above: Performed By: #### C LANA, 36379-5, , CBCA #### [facility] ([id number]) [address] [place] [address] Creatinine [Mass/Vol] 1.19 mg/dL High 0.40-1.00 [facility] Comment on above: Result Comment: METH OD TRACEABLE TO IDMS STANDARD Performed By: #### C LANA, 76964-4, , CBCA #### [facility] ([id number]) [address] [place] [address] GFR/1.73 sq M.predicted among non-blacks MDRD (S/P/Bld) [Vol rate/Area] 52 mL/min/{1.73_m2} Low >59 [facility] Comment on above: Result Comment: Reported eGFR is based on the CKD-EPI 2020 equation that does not use a race coefficient. Performed By: #### C LANA, 45113-4, , CBCA #### [facility] ([id number]) [address] [place] [address] Glucose [Mass/Vol] 95 mg/dL Normal 65-99 [facility] Comment on above: Performed By: #### C LANA, 61305-9, , CBCA #### [facility] ([id number]) [address] [place] [address] Potassium [Moles/Vol] 3.7 mmol/L Normal 3.5-5.0 [facility] Comment on above: Performed By: #### C LANA, 78916-7, , CBCA #### [facility] ([id number]) [address] [place] [address] Protein [Mass/Vol] 6.0 g/dL Normal 6.0-8.0 [facility] Comment on above: Performed By: #### C LANA, 49665-7, , CBCA #### [facility] ([id number]) [address] [place] [address] Sodium [Moles/Vol] 145 mmol/L Normal 134-146 [facility] Comment on above: Performed By: #### C LANA, 11889-9, , CBCA #### [facility] ([id number]) [address] [place] [address] Urea nitrogen [Mass/Vol] 8 mg/dL Normal 5-23 [facility] Comment on above: Performed By: #### Javid SCHWARTZ, 80391-3, , CBCA #### [facility] ([id number]) [address] [place] [address] Glucose Glucometer (BldC) [M ass/Vol]on 04-16-2023 Glucose [Mass/Vol] 137 mg/dL High 65-99 [facility] Glucose [Mass/Vol] 88 mg/dL Normal 65-99 [facility] Glucose [Mass/Vol] 102 mg/dL High 65-99 [facility] MAGNESIUMon 04-16-2023 Magnesium [Mass/Vol] 2.4 mg/dL Normal 1.8-2.6 [facility] Comment on above: Performed By: #### C , 27108-4, 71017-2, CBCA #### [facility] ([id number]) [address] [place] [address] Magnesium [Mass/Vol] 1.9 mg/dL Normal 1.8-2.6 [facility] Comment on above: Performed By: #### C LANA, 77486-2, 11866-5, CBCA #### [facility] ([id number]) [address] [place] [address] POTASSIUMon 04-16-2023 Potassium [Moles/Vol] 4.1 mmol/L Normal 3.5-5.0 [facility] Comment on above: Performed By: #### C LANA, 50216-3, , CBCA #### [facility] ([id number]) [address] [place] [address] Potassium [Moles/Vol] 3.6 mmol/L Normal 3.5-5.0 [facility] Comment on above: Performed By: #### C LANA, 66166-9, , CBCA #### [facility] ([id number]) [address] [place] [address] TRIGLYCERIDEon 04-16-2023 Triglyceride [Mass/Vol] 262 mg/dL High 27-150 [facility] Comment on above: Performed By: #### C LANA, 73238-4, , CBCA #### [facility] ([id number]) [address] [place] [address] XR CHEST 1 VWon 04-16-2023 XR CHEST 1 VW XR CHEST 1 VW HISTORY: Acute respiratory failure COMPARISON: Chest x-ray 04/15/2023 FINDINGS: Portable AP upright view of the chest was performed. Stable position of endotracheal tube, enteric tube and left jugular venous catheter. Cardiac silhouette is unchanged. Stable bilateral airspace disease with superimposed pulmonary edema. No significant pleural effusion or pneumothorax. IMPRESSION: * No significant interval change. Finalized by Francisco Javier Aceves MD on 04/16/2023 5:28 AM Normal [facility] ARTERIAL BLOOD GASon 023 RAVINDRA'S TEST Pass Normal [facility] Comment on above: Performed By: #### A BG #### [facility] ([id number]) [address] [place] [address] BASE,DEFICIT 2.0 MMOL/L Normal 0.0-2.0 [facility] Comment on above: Performed By: #### A BG #### [facility] ([id number]) [address] [place] [address] Body temperature 98.6 [degF] Normal 37.0 [facility] Comment on above: Performed By: #### A BG #### [facility] ([id number]) [address] [place] [address] HCO3 (Bld) [Moles/Vol] 24.5 mmol/L Normal 22-26 [facility] Comment on above: Performed By: #### A BG #### [facility] ([id number]) [facility] [place] [address] INSP. O2 CONC. 60 % Normal [facility] Comment on above: Performed By: #### A BG #### [facility] ([id number]) [facility] [place] [address] Oxygen (Bld) [Partial pressure] 79 mm[Hg] Low 80-100 [facility] Comment on above: Performed By: #### A BG #### [facility] ([id number]) [facility] [place] [address] Oxygen saturation in Blood 94.0 % Normal >90 [facility] Comment on above: Performed By: #### A BG #### [facility] ([id number]) [facility] [place] [place] [address] OXYGEN SOURCE Vent Normal [facility] Comment on above: Performed By: #### A BG #### [facility] ([id number]) [address] [place] [address] PCO2 47.9 MMHG High 35-45 [facility] Comment on above: Performed By: #### A BG #### [facility] ([id number]) [address] [place] [address] pH (Bld) 7.317 [pH] Low 7.350-7.45 0 [facility] Comment on above: Performed By: #### A BG #### [facility] ([id number]) [address] [place] [address] SAMPLE SITE LRad Normal [facility] Comment on above: Performed By: #### A BG #### [facility] ([id number]) [address] [place] [address] SAMPLE TYPE ARTERIAL Normal [facility] Comment on above: Performed By: #### A BG #### [facility] ([id number]) [address] [place] [address] BLOOD CULTUREon 04-15-2023 Bacteria identified Aer cx Nom (Bld) CULTURE RESULTS NO GROWTH 5 DAYS Normal [facility] Bacteria identified Aer cx Nom (Bld) CULTURE RESULTS NO GROWTH 5 DAYS Normal [facility] CBC AND AUTO DIFFon 04-15-20 ABSOLUTE BASOPHIL 0.0 X10E9/L Normal 0.0-0.2 [facility] Comment on above: Performed By: #### C LANA, 21298-9, , CBCA #### [facility] ([id number]) [address] [place] [address] ABSOLUTE NEUTROPHIL 1.9 X10E9/L Normal 1.5-6.6 [facility] Comment on above: Performed By: #### C LANA, 19880-2, , CBCA #### [facility] ([id number]) [address] [place] [address] Anisocytosis Ql (Bld) 2+ Abnormal NONE [facility] Comment on above: Performed By: #### C LANA, 99368-7, , CBCA #### [facility] ([id number]) [address] [place] [address] Basophils/100 WBC (Bld) 0.2 % Normal [facility] Comment on above: Performed By: #### C LANA, 43194-4, , CBCA #### [facility] ([id number]) [address] [place] [address] Eosinophils (Bld) [#/Vol] 0.0 10*3/uL Normal 0.0-0.4 [facility] Comment on above: Performed By: #### C LANA, 86326-2, , CBCA #### [facility] ([id number]) [address] [facility] [place] [address] Eosinophils/100 WBC (Bld) 0.0 % Normal [facility] Comment on above: Performed By: #### C LANA, 62444-5, , CBCA #### [facility] ([id number]) [address] [place] [address] Erythrocyte distribution width (RBC) [Ratio] 22.0 % High 11.5-15.0 [facility] Comment on above: Performed By: #### C LANA, 35914-3, , CBCA #### [facility] ([id number]) [address] [place] [address] Hematocrit (Bld) [Volume fraction] 28.7 % Low 35-47 [facility] Comment on above: Performed By: #### C LANA, 64600-9, , CBCA #### [facility] ([id number]) [address] [place] [address] Hemoglobin (Bld) [Mass/Vol] 9.1 g/dL Low 11.7-15.5 [facility] Comment on above: Performed By: #### C LANA, 79002-8, , CBCA #### [facility] ([id number]) [address] [place] [address] Lymphocytes (Bld) [#/Vol] 0.6 10*3/uL Low 1.0-3.5 [facility] Comment on above: Performed By: #### C LANA, 65971-6, , CBCA #### [facility] ([id number]) [address] [place] [address] Lymphocytes/100 WBC (Bld) 22.8 % Normal [facility] Comment on above: Performed By: #### C LANA, 92161-5, 65508-6, CBCA #### [facility] ([id number]) [address] [place] [address] MCH (RBC) [Entitic mass] 27.1 pg Normal 27-34 [facility] Comment on above: Performed By: #### C LANA, 58453-2, , CBCA #### [facility] ([id number]) [address] [place] [address] MCHC (RBC) [Mass/Vol] 31.8 g/dL Low 32-36 [facility] Comment on above: Performed By: #### C LANA, 60574-6, , CBCA #### [facility] ([id number]) [address] [place] [address] MCV (RBC) [Entitic vol] 85 fL Normal 80-100 [facility] Comment on above: Performed By: #### C LANA, 89626-3, , CBCA #### [facility] ([id number]) [address] [place] [address] Monocytes (Bld) [#/Vol] 0.2 10*3/uL Normal 0-0.9 [facility] Comment on above: Performed By: #### C LANA, 08296-6, , CBCA #### [facility] ([id number]) [address] [place] [address] Monocytes/100 WBC (Bld) 7.7 % Normal [facility] Comment on above: Performed By: #### C LANA, 46082-4, 76783-1, CBCA #### [facility] ([id number]) [address] [place] [address] Neutrophils/100 WBC (Bld) 69.3 % Normal [facility] Comment on above: Performed By: #### C LANA, 03392-9, , CBCA #### [facility] ([id number]) [address] [place] [address] Platelet mean volume (Bld) [Entitic vol] 7.5 fL Normal 7-12 [facility] Comment on above: Performed By: #### C LANA, 30276-5, , CBCA #### [facility] ([id number]) [address] [place] [address] Platelets (Bld) [#/Vol] 222 10*3/uL Normal 150-450 [facility] Comment on above: Performed By: #### C LANA, 32251-7, , CBCA #### [facility] ([id number]) [address] [place] [address] RBC COUNT 3.36 X10E12/L Low 3.80-5.20 [facility] Comment on above: Performed By: #### C LANA, 84047-8, , CBCA #### [facility] ([id number]) [address] [place] [address] WBC (Bld) [#/Vol] 2.7 10*3/uL Low 4.0-11.0 [facility] Comment on above: Performed By: #### C LANA, 82137-6, , CBCA #### [facility] ([id number]) [address] [place] [address] COMPREHENSIVE METABOLIC PANE Meek 04-15-2023 Albumin [Mass/Vol] 2.4 g/dL Low 3.2-5.3 [facility] Comment on above: Performed By: #### C LANA, 51232-3, , CBCA #### [facility] ([id number]) [address] [place] [address] ALP [Catalytic activity/Vol] 63 U/L Normal 39-130 [facility] Comment on above: Performed By: #### C , 01833-0, , CBCA #### [facility] ([id number]) [address] [place] [address] ALT [Catalytic activity/Vol] 18 U/L Normal 0-31 [facility] Comment on above: Performed By: #### C , 81701-9, 12070-7, CBCA #### [facility] ([id number]) [address] [place] [address] Anion gap [Moles/Vol] 6 mmol/L Normal 5-15 [facility] Comment on above: Performed By: #### C , 45631-6, , CBCA #### [facility] ([id number]) [address] [place] [address] AST [Catalytic activity/Vol] 24 U/L Normal 0-41 [facility] Comment on above: Performed By: #### C , 65962-8, , CBCA #### [facility] ([id number]) [address] [place] [address] Bilirubin [Mass/Vol] 0.7 mg/dL Normal 0.3-1.2 [facility] Comment on above: Performed By: #### C LANA, 63993-6, , CBCA #### [facility] ([id number]) [address] [place] [address] Calcium [Mass/Vol] 7.8 mg/dL Low 8.5-10.5 [facility] Comment on above: Performed By: #### [place], 62450-5, , CBCA #### [facility] ([id number]) [address] [place] [address] Chloride [Moles/Vol] 115 mmol/L High 98-109 [facility] Comment on above: Performed By: #### C MP, 47483-7, , CBCA #### [facility] ([id number]) [address] [place] [address] CO2 [Moles/Vol] 25 mmol/L Normal 22-32 [facility] Comment on above: Performed By: #### C LANA, 85738-2, , CBCA #### [facility] ([id number]) [address] [place] [address] Creatinine [Mass/Vol] 1.43 mg/dL High 0.40-1.00 [facility] Comment on above: Result Comment: METH OD TRACEABLE TO IDMS STANDARD Performed By: #### C LANA, 02006-9, , CBCA #### [facility] ([id number]) [address] [place] [address] GFR/1.73 sq M.predicted among non-blacks MDRD (S/P/Bld) [Vol rate/Area] 42 mL/min/{1.73_m2} Low >59 [facility] Comment on above: Result Comment: Reported eGFR is based on the CKD-EPI 2020 equation that does not use a race coefficient. Performed By: #### C LANA, 04992-4, , CBCA #### [facility] ([id number]) [address] [place] [address] Glucose [Mass/Vol] 118 mg/dL High 65-99 [facility] Comment on above: Performed By: #### C LANA, 51269-0, , CBCA #### [facility] ([id number]) [address] [place] [address] Potassium [Moles/Vol] 2.8 mmol/L Low 3.5-5.0 [facility] Comment on above: Performed By: #### C LANA, 24423-3, , CBCA #### [facility] ([id number]) [address] [place] [address] Protein [Mass/Vol] 6.0 g/dL Normal 6.0-8.0 [facility] Comment on above: Performed By: #### C LANA, 83314-0, 18349-8, CBCA #### [facility] ([id number]) [address] [place] [address] Sodium [Moles/Vol] 146 mmol/L Normal 134-146 [facility] Comment on above: Performed By: #### C MP, 79810-2, 76235-8, CBCA #### [facility] ([id number]) [address] [place] [address] Urea nitrogen [Mass/Vol] 11 mg/dL Normal 5-23 [facility] Comment on above: Performed By: #### C MP, 81384-1, , CBCA #### [facility] ([id number]) [address] [place] [address] Glucose Glucometer (BldC) [M ass/Vol]on 04-15-2023 Glucose [Mass/Vol] 118 mg/dL High 65-99 [facility] Glucose [Mass/Vol] 83 mg/dL Normal 65-99 [facility] Glucose [Mass/Vol] 112 mg/dL High 65-99 [facility] Glucose [Mass/Vol] 128 mg/dL High 65-99 [facility] LOWER RESPIRATORY CULTUREon 04-15-2023 Bacteria identified Respiratory culture Nom (Sput) GRAM STAIN 0 to 1 WHITE BLOOD CELLS/LPF 0 to 1 SQUAMOUS EPITHELIAL CELLS/LPF 0 CILIATED EPITHELIAL CELLS/LPF FEW YEAST CULTURE RESULTS RARE KLEBSIELLA PNEUMONIAE RARE YEAST RARE YEAST VARIANT Jie Garcia, MAXX, requested susceptibility on GNR on 04/17/23 Organism: KLEBSIELLA PNEUMONIAE Antibiotic Interpretation ROSARIO Status AMPICILLIN R >=32 F AMP/SULBACTAM S 8/4 F CEFAZOLIN UNK <=4 F CLSI interpretive criteria for nonurinary isolates are as follows: <=2 Susceptible, 4 Intermediate, Resistant >=8. Contact Microbiology laboratory if further susceptibility testing for Cefazolin is required. CEFTRIAXONE S <=1 F CIPROFLOXACIN S <=0.25 F GENTAMICIN S <=1 F LEVOFLOXACIN S 0.5 F PIPERACIL/TAZOBACTAM S 16 F TOBRAMYCIN S <=1 F Susceptible [facility] Comment on above: Performed By: #### 6 24-7 #### [facility] ([id number]) [address] [place] [address] MAGNESIUMon 04-15-2023 Magnesium [Mass/Vol] 2.0 mg/dL Normal 1.8-2.6 [facility] Comment on above: Performed By: #### C LANA, 03859-7, , CBCA #### [facility] ([id number]) [address] [facility] [place] [address] MRSA PCR NASALon 04-15-2023 MRSA DNA HUBERT+probe Ql (Unsp spec) Negative Normal NEG [facility] Comment on above: Performed By: #### C LANA, 58863-5, , CBCA #### [facility] ([id number]) [address] [facility] [place] [address] POTASSIUMon 04-15-2023 Potassium [Moles/Vol] 3.8 mmol/L Normal 3.5-5.0 [facility] Comment on above: Performed By: #### C LANA, 67481-2, , CBCA #### [facility] ([id number]) [address] [facility] [place] [address] Potassium [Moles/Vol] 3.5 mmol/L Normal 3.5-5.0 [facility] Comment on above: Performed By: #### C LANA, 04455-8, , CBCA #### [facility] ([id number]) [address] [facility] [place] [address] Procalcitonin IA [Mass/Vol]o n 04-15-2023 PROCALCITONIN 0.57 ng/mL High <0.05 [facility] Comment on above: Result Comment: NOTE <0.50 ng/mL - Low risk of severe sepsis and/or septic shock. <2.00 ng/mL - Recommend retesting within 6-24 hours. >2.00 ng/mL - High risk of sepsis and/or septic shock. Performed By: #### C LANA, 71858-7, , CBCA #### [facility] ([id number]) [address] [facility] [place] [address] XR CHEST 1 VWon 04-15-2023 SARS-CoV-2 (COVID-19) RNA HUBERT+probe Ql (Unsp spec) XR CHEST 1 VW HISTORY: Pneumonia, COVID positive COMPARISON: Chest x-ray 04/14/2023 FINDINGS: Portable AP upright view of the chest was performed. Stable position of endotracheal tube, enteric tube and left jugular venous catheter. Postoperative changes compatible with CABG. Stable bilateral airspace disease. No significant pleural effusion or pneumothorax. IMPRESSION: * No significant interval change. Finalized by Francisco Javier Aceves MD on 04/15/2023 5:56 AM Normal [facility] XR lumbar spine 6V w bending on 12-11-2022 XR lumbar spine 6V w bending [facility] [place] [address] [place] [address] XRay Report Signed Patient: Monet Recinos MR#: [id number] 82 : 1960 Acct:[id number] Age/Sex: 62 / F ADM Date: 12/11/22 Loc: XD Room: Type: [facility] Attending Dr: John Carson MD Copies to: John Carson MD Ordering Provider: John Carson MD Date of Service: 12/11/22 XR/XR lumbar spine 6V w bending: M54.50 LUMBAR SPINE WITH FLEXION, EXTENSION AND BENDING VIEWS - 6 views: CLINICAL HISTORY: Worsening right leg numbness and tingling. No injury. COMPARISON: 10/04/2022 Standing AP neutral, right and left bending and lateral views in neutral, flexion and extension were obtained. There is osteopenia. There is dextroscoliotic curvature. No acute compression fractures are noted. There is approximately 4 mm of retrolisthesis of L3 on L4. Alignment does not change significantly with flexion or extension. There is disc space narrowing at the lumbosacral junction. Tiny endplate spurs and lower lumbar facet disease are seen. The SI joints are intact. There is atherosclerotic plaque involving the aorta and iliac arteries. XR/XR lumbar spine 6V w bending IMPRESSION: OSTEOPENIA, SCOLIOSIS AND DEGENERATIVE CHANGES, DESCRIBED. Impression dictated by: Marlyn Samayoa M.D.12/11/2022 10:23 AM Dictation Location: [place] [address] Transcribed By: [facility] 12/11/22 1023 Dictated By: Marlyn Samayoa MD 12/11/22 1020 Signed By: 12/11/22 1023 Normal [facility] MR head/brain wo/w conon MR head/brain wo/w con [facility] [address] [place] [address] [place] [address] MRI Report Signed Patient: Monet Recinos MR#: [id number] 80 : 1960 Acct:[id number] Age/Sex: 61 / F ADM Date: 01/24/22 Loc: MR Room: Type: [facility] Attending Dr: Eric Huerta DO Copies to: Kg Huerta DO Ordering Provider: Kg Huerta DO Date of Service: 01/24/22 MR/MR head/brain wo/w con: R27.0 MR head/brain wo/w con 01/24/2022 11:04 AM SIGN AND SYMPTOMS: Ataxia, headaches PROTOCOL: Multiplanar multisequence MR images of the brain were obtained with and without IV contrast CONTRAST: 20 mL of intravenous ProHance COMPARISON: None. FINDINGS: Extra axial spaces: Age appropriate. Hemorrhage: None. Ventricular system: Within normal limits. Basal cisterns: Within normal limits and not effaced. Cerebral parenchyma: Periventricular and subcortical white matter T2 and T2 FLAIR hyperintense signal is noted consistent with chronic microvascular ischemic change. There is no abnormal postcontrast Midline shift: None.. Cerebellum: Within normal limits. Brainstem: Within normal limits. OTHER: Calvarium: Normal marrow signal. Vascular system: Satisfactory flow voids within the anterior and posterior circulation. Visualized Paranasal sinuses: Within normal limits. Visualized Orbits: Within normal limits. Visualized upper cervical spine: Within normal limits. Sella and skull base: Within normal limits. MR/MR head/brain wo/w con IMPRESSION: No acute intracranial pathology or abnormal postcontrast enhancement. Chronic microvascular ischemic changes are noted. Impression dictated by: Jamie Oconnor M.D.01/24/2022 3:41 PM Dictation Location: [place] [address] Transcribed By: [facility] 01/24/221540 Dictated By: Jamie Oconnor II, MD 01/24/221536 Signed By: 01/24/22 154 [facility] .Auto Diff 1on 01-07-2018 Auto Baso % 0.6 % Normal 0.2-2.0 [facility] Comment on above: Performed By: #### 6 764762, 4569084, [id number], [id number], 8336037495, 338836227, 1801398, 37936510 ####[facility] (DEFAULT)[address] [place] [address] Auto [place]ien[place] % 6 % Normal 1-12 [facility] Comment on above: Performed By: #### 6 158036, 7735611, [id number], 1311264112, [id number], 866088526, 4988844, 19719828 ####[facility] (DEFAULT)[address] [place] [address] Auto Neut % 54 % Normal 44-88 [facility] Comment on above: Performed By: #### 6 130010, 0759150, 2438634309, 6997662599, 7862968127, 392891892, 8688410, 66273363 ####[facility] (DEFAULT)[address] [place] [address] Baso Abs# 0.0 x10 Normal 0.0-0.2 [facility] Comment on above: Performed By: #### 6 713253, 2103611, [id number], 4192190917, 0137956082, 439854825, 5384882, 73827799 ####[facility] (DEFAULT)[address] [place] [address] Eos Abs# 0.1 x10 Normal 0.0-0.4 [facility] Comment on above: Performed By: #### 6 500702, 3794448, 2046983089, 1372429518, 7100900178, 156859875, 9459185, 01379063 ####[facility] (DEFAULT)[address] [place] [address] Eosinophils/100 WBC Auto (Bld) 1.4 % Normal 0.9-4.0 [facility] Comment on above: Performed By: #### 6 661537, 4666075, 5030213078, 8685919292, 6332863285, 025553076, 2594787, 46308628 ####[facility] (DEFAULT)[address] [place] [address] Lymphocytes Auto #/vol (Bld) 2.8 x10 Normal 1.3-2.9 [facility] Comment on above: Performed By: #### 6 982434, 1112604, 8955387887, 7871608354, 2994193588, 780172503, 5955549, 84273395 ####[facility] (DEFAULT)[address] [place] [address] Lymphocytes/100 WBC Auto (Bld) 39 % Normal 14-48 [facility] Comment on above: Performed By: #### 6 906401, 6545217, 9493195671, 0785339092, 8916145584, 276193646, 7040912, 07551043 ####[facility] (DEFAULT)[address] [place] [address] Bienville Abs# 0.4 x10 Normal 0.0-0.8 [facility] Comment on above: Performed By: #### 6 138573, 0094013, 5617458319, 1619886675, 0944370585, 041502968, 9415054, 59082272 ####[facility] (DEFAULT)[address] [place] [address] Neut Abs# 3.9 x10 Normal 1.5-9.2 [facility] Comment on above: Performed By: #### 6 484422, 7267966, 6933107307, 1594597793, 8096551771, 106999711, 8481970, 65511518 ####[facility] (DEFAULT)[address] [place] [address] Acet Levelon 01-07-2018 Acetaminophen mass conc <10 Normal 10-30 [facility] Comment on above: Performed By: #### 6 884025, 7867462, 2963432367, 3554035842, 5944790153, 573798130, 1113491, 98476840 ####[facility] (DEFAULT)[address] [place] [address] CBC w/ Auto Diffon 8 Erythrocyte distribution width Auto Ratio (RBC) 17.0 % High 11.5-15.0 [facility] Comment on above: Performed By: #### 6 838083, 6908225, 3123717562, 4083355550, 5564515732, 398576048, 1439733, 63660647 ####[facility] (DEFAULT)[address] [place] [address] Hematocrit Auto Volume Fraction (Bld) 41.2 % High 33.7-40.4 [facility] Comment on above: Performed By: #### 6 824237, 9967677, 3276881670, 1764937967, 6414427363, 666191298, 1927499, 97146929 ####[facility] (DEFAULT)[address] [place] [address] Hemoglobin mass conc (Bld) 14.0 g/dL Normal 11.3-15.9 [facility] Comment on above: Performed By: #### 6 917895, 3310164, 1939142736, 8797925297, 6954575687, 664267485, 9025989, 54523103 ####[facility] (DEFAULT)[address] [place] [address] Man Diff? Auto Normal [facility] Comment on above: Performed By: #### 6 207440, 9346111, 4690978688, 6281555106, 6626804961, 952376447, 0601375, 07612323 ####[facility] (DEFAULT)[address] [place] [address] MCH Auto Entitic mass (RBC) 29 pg Normal 24-34 [facility] Comment on above: Performed By: #### 6 799082, 4956569, 7008073499, 2774012065, 0509633189, 183358976, 5280885, 48780797 ####[facility] (DEFAULT)[address] [place] [address] MCHC Auto mass conc (RBC) 34 g/dL Normal 26-37 [facility] Comment on above: Performed By: #### 6 490924, 1496017, 6537182099, 3899602435, 1679328965, 099483702, 1637438, 81840985 ####[facility] (DEFAULT)[address] [place] [address] MCV Auto Entitic volume (RBC) 84 fL Normal 81-100 [facility] Comment on above: Performed By: #### 6 455490, 0687510, 1330277990, 8280429585, 2409588233, 554837431, 8207277, 33100313 ####[facility] (DEFAULT)[address] [place] [address] Platelet mean volume Auto Entitic volume (Bld) 9.8 fL Normal 6.3-10.2 [facility] Comment on above: Performed By: #### 6 513953, 7991408, 7762872240, 1833194484, 2971452307, 911738305, 8626935, 15223321 ####[facility] (DEFAULT)[address] [place] [address] Platelets Auto #/vol (Bld) 268 x10 Normal 138-427 [facility] Comment on above: Performed By: #### 6 623965, 2552119, 7595141471, 9030169954, 7002525985, 883472778, 1881189, 77661783 ####[facility] (DEFAULT)[address] [place] [address] RBC Auto #/vol (Bld) 4.90 x10 Normal 3.70-5.30 [facility] Comment on above: Performed By: #### 6 895356, 0220192, 9837341120, 6815513560, 9079515224, 039800067, 6542615, 24154465 ####[facility] (DEFAULT)[address] [place] [address] WBC Auto #/vol (Bld) 7.2 x10 Invalid Interpretation Code [facility] Comment on above: Performed By: #### 6 411054, 6552051, 6044098981, 5286502264, 0247522219, 770295247, 6735930, 97180511 ####[facility] (DEFAULT)[address] [place] [address] CMP Standardon 01-07-2018 Bili Total 0.2 mg/dL Low 0.3-1.2 [facility] Comment on above: Performed By: #### 1 [id number], 5759685278 ####[facility] (DEFAULT)[address] [place] [address] eGFR Non AA >60 Invalid Interpretation Code [facility] Comment on above: Performed By: #### 1 414941165, [id number] ####[facility] (DEFAULT)[address] [place] [address] eGFR AA >60 Invalid Interpretation Code [facility] Comment on above: Result Comment: Centrifugal Separator tri Kidney disease could be indicated at eGFRs of less than 60 ml/min/1.73m2. Kidney Failure is indicated at less than 15 ml/min/1.73m2 Performed By: #### 1 707398043, [id number] ####[facility] (DEFAULT)[address] [place] [address] Albumin mass conc 3.8 g/dL Normal 3.5-5.0 [facility] Comment on above: Performed By: #### 1 [id number], 9180593300 ####[facility] (DEFAULT)[address] [place] [address] Albumin/Globulin mass ratio 1.1 {ratio} Low 1.4-2.6 [facility] Comment on above: Performed By: #### 1 753284948, [id number] ####[facility] (DEFAULT)[address] [place] [address] 73034 Alk Phos 81 IU/L Normal 32-91 [facility] Comment on above: Performed By: #### 1 965229928, [id number] ####[facility] (DEFAULT)[address] [place] [address] 09566 ALT/SGPT 15.0 IU/L Normal 14.0-54.0 [facility] Comment on above: Performed By: #### 1 113935025, [id number] ####[facility] (DEFAULT)[address] [place] [address] 91899 Anion gap 3 molar conc 13.0 mmol/L Normal 5.0-19.0 [facility] Comment on above: Performed By: #### 1 [id number], 6137984849 ####[facility] (DEFAULT)[address] [place] [address] 08686 AST/SGOT 18 IU/L Normal 15-41 [facility] Comment on above: Performed By: #### 1 [id number], 7739557354 ####[facility] (DEFAULT)[address] [place] [address] 68203 Calcium mass conc 8.8 mg/dL Low 8.9-10.3 [facility] Comment on above: Performed By: #### 1 445370030, [id number] ####[facility] (DEFAULT)[address] [place] [address] 35879 Chloride molar conc 106 mmol/L Normal 101-111 [facility] Comment on above: Performed By: #### 1 [id number], [id number] ####[facility] (DEFAULT)[address] [place] [address] 65479 CO2 molar conc 23 mmol/L Normal 21-32 [facility] Comment on above: Performed By: #### 1 [id number], [id number] ####[facility] (DEFAULT)[address] [place] [address] 62304 Creatinine mass conc 0.77 mg/dL Normal 0.60-1.30 [facility] Comment on above: Performed By: #### 1 957542829, 4062329342 ####[facility] (DEFAULT)[address] [place] [address] 22014 Globulin Calculated mass conc (S) 3.6 g/dL Normal 1.5-4.3 [facility] Comment on above: Performed By: #### 1 [id number], [id number] ####[facility] (DEFAULT)[address] [place] [address] 49543 Glucose mass conc 91.0 mg/dL Normal 74.0-118.0 [facility] Comment on above: Performed By: #### 1 396982601, [id number] ####[facility] (DEFAULT)[address] [place] [address] 37352 Osmolality 277 mOsm/L Invalid Interpretation Code [facility] Comment on above: Performed By: #### 1 [id number], [id number] ####[facility] (DEFAULT)[address] [place] [address] 21752 Potassium molar conc 4.0 mmol/L Normal 3.6-5.1 [facility] Comment on above: Performed By: #### 1 584351298, 2669131046 ####[facility] (DEFAULT)[address] [place] [address] 28715 Protein mass conc 7.4 g/dL Normal 6.5-8.1 [facility] Comment on above: Performed By: #### 1 052591662, [id number] ####[facility] (DEFAULT)[address] [place] [address] 09724 Sodium molar conc 138.0 mmol/L Normal 136.0-144. 0 [facility] Comment on above: Performed By: #### 1 [id number], [id number] ####[facility] (DEFAULT)[address] [place] [address] 00110 Urea nitrogen mass conc 17 mg/dL Normal 8-26 [facility] Comment on above: Performed By: #### 1 [id number], 6858279716 ####[facility] (DEFAULT)[address] [place] [address] 59579 Urea nitrogen/Creatinin e mass ratio 22.0 mg/mg High 4.6-16.2 [facility] Comment on above: Performed By: #### 1 [id number], [id number] ####[facility] (DEFAULT)[address] [place] [address] 50548 ED Clinical Summaryon 2017 ED Clinical Summary [facility] [address] [place] [address] ed Clinical SummaryPERSON INFORMATIONName: MONET RECINOS Age: 57 Years Sex: FEMALEDOB: [birth year] MRN: Acct#:Visit Reason: General medical; MEDICAL CLEARENCE Arrival: 01/07/18 13:27:00 Discharge: 01/07/18 15:22:00LOS: 000 01:55 Check In: 01/07/18 13:27:00 Checkout:01/07/18 15:22:00Address:[address] [facility] [address]ETS: Provider, NonePROVIDER INFORMATIONProvider Role Assigned UnassignedRylee Gaxiola ED PA 01/07/18 13:36:17Magrum RN, Adrian ED Nurse 01/07/18 13:37:42VITALS INFORMATIONVital Sign Triage LatestTemperature TympanicTemperature Temporal ArteryPulse Rate 80 bpm 80 bpmO2 Sat 97 % 97 %Respiratory Rate 18 br/min 18 br/minBlood Pressure 117 mmHg/90 mmHg 117 mmHg/90 mmHgMEDICAL INFORMATIONMedications Given:Allergy Information:Morphine Sulfate; penicillinPHYSICIAN DOCUMENTATIONPatient: MONET RECINOS : 57 years Sex: FEMALE : 64Associated Diagnoses: Suicidal thoughts; Depression, majorAuthor: Todd Gaxiola InformationTime seen: Date & time 01/07/18 13:40:00.History source: Patient.Arrival mode: Private vehicle.History limitation: None.Additional information: Chief Complaint from Nursing Triage Note : Chief Kscintwoo55/13/18 13:28 EDT Chief Complaint sent from [facility] for medical clearance, depressed/anxiety .History of Present Hnjqcnr80-kqfx-mzd female presents to the emergency department for medical clearance for psychiatric admission. Patient is feeling very depressed. She states she feels like she just wants to go to sleep and never wake up. She was seen at [facility] and will be admitted to [address]Review of SystemsConstitutional symptoms: No fever, no chills.Skin symptoms: dry skin, no jaundice, no rash.ENMT symptoms: No ear pain, no sore throat, no nasal congestion.Respiratory symptoms: No shortness of breath, no cough.Cardiovascular symptoms: No chest pain, no palpitations, no tachycardia, no syncope.Gastrointestinal symptoms: No abdominal pain,Neurologic symptoms: No headache, no dizziness.Psychiatric symptoms: Depression, No substance abuse, Additional review of systems information: All other systems reviewed and otherwise negative.Health StatusAllergies:No active allergies have been recorded..Past Medical/ Family/ Social HistoryMedical history:No active or resolved past medical history items have been selected or recorded..Surgical history:No active procedure history items have been selected or recorded..Family history:No family history items have been selected or recorded..Social history:Social & Psychosocial HabitsNo Data Available.Problem list:No qualifying data available.Physical Examination Vital SignsVital Signs01/07/18 13:28 EDT Temperature Oral 37 DegC Peripheral Pulse Rate 80 bpm Respiratory Rate 18 br/min Systolic Blood Pressure 117 mmHg Diastolic Blood Pressure 90 mmHg SpO2 97 %.General: Alert, no acute distress.Skin: Warm, dry, pink, intact.Head: Normocephalic, atraumatic.Eye: Pupils are equal, round and reactive to light, normal conjunctiva.Ears, nose, mouth and throat: Oral mucosa moist.Cardiovascular: Regular rate and rhythm, No murmur, Normal peripheral perfusion, No edema.Respiratory: Lungs are clear to auscultation, respirations are non-labored, breath sounds are equal, Symmetrical chest wall expansion.Back: Nontender, Normal range of motion.Musculoskeletal: Normal ROM, normal strength.Neurological: Alert and oriented to person, place, time, and situation, normal motor observed, normal speech observed, normal coordination observed.Psychiatric: Mood and affect: Depressed, flat, Behavior: Relaxed, Abnormal / Psychotic thoughts: Suicidal.Medical Decision MakingDifferential Diagnosis: Depression, suicide risk.Documents reviewed: Emergency department nurses' notes, [facility] Counselling.Orders Launch OrdersLaboratory:Urinalysis with Culture, if indicated Standard (Order): Urine, Stat collect, 01/07/18 13:43 EDT, Nurse collectTS w/ Reflex to FT4 (Order): Blood, Stat collect, 01/07/18 13:43 EDT, Lab CollectTriage Panel 12 (Order): Urine, Stat collect, 01/07/18 13:43 EDT, Nurse collect, Clean CatchSalicylate Level (Order): Blood, Stat collect, 01/07/18 13:43 EDT, Lab CollecthCG urine Qualitative 1 (Order): Urine, Stat collect, 01/07/18 13:42 EDT, Nurse collectEtOH. (Order): Blood, Stat collect, 01/07/18 13:42 EDT, Lab CollectCMP Standard (Order): Blood, Stat collect, 01/07/18 13:42 EDT, Lab CollectCBC w/ Auto Diff (Order): Blood, Stat collect, 01/07/18 13:42 EDT, Lab CollectAcetaminophen Level (Order): Blood, Stat collect, 01/07/18 13:42 EDT, Lab Collect.Results review: Lab results : Lab Httitxjsw96/13/18 14:19 EDT Sodium Level 138.0 mmol/L Potassium Level 4.0 mmol/L Chloride Level 106 mmol/L CO2 23 mmol/L Anion Gap 13.0 mmol/L Glucose Level 91.0 mg/dL BUN 17 mg/dL Creatinine Level 0.77 mg/dL BUN/Creat Ratio 22.0 HI eGFR AA >60 mL/min/1.73m2 NA eGFR Non AA >60 mL/min/1.73m2 NA Calcium Level 8.8 mg/dL LOW Alk Phos 81 IU/L AST/SGOT 18 IU/L ALT/SGPT 15.0 IU/L Protein Total 7.4 gm/dL Albumin Level 3.8 gm/dL Globulin 3.6 gm/dL A/G Ratio 1.1 LOW Osmolality 277 mOsm/L NA TSH 1.54 mcIU/mL WBC 7.2 x103/mcL RBC 4.90 x106/mcL Hgb 14.0 gm/dL Hct 41.2 % HI MCV 84 fL MCH 29 pg MCHC 34 gm/dL RDW 17.0 % HI Platelet 268 x103/mcL MPV 9.8 fL Auto Neut % 54 % Auto Lymph % 39 % Auto [place]ien[place] % 6 % Auto Eos % 1.4 % Auto Baso % 0.6 % Neut Abs# 3.9 x103/mcL Lymph Abs# 2.8 x103/mcL Bien[place] Abs# 0.4 x103/mcL Eos Abs# 0.1 x103/mcL Baso Abs# 0.0 x103/mcL Salicylate Lvl <4.0 mg/dL Acetaminoph Lvl <10 mcg/mL Ethanol Level <5.0 mg/dL Tube Collected Yes Tube Collected Yes01/07/18 13:55 EDT UA Color YELLOW UA Clarity CLEAR UA Glucose NEGATIVE UA Ketones NEGATIVE UA Spec Grav >=1.030 UA Blood NEGATIVE UA pH 6.0 UA Protein NEGATIVE mg/dL UA Urobilinogen 0.2 mg/dL UA Nitrite NEGATIVE UA Leuk Est NEGATIVE UA Bilirubin NEGATIVE Urine Source Clean Catch Urine Source Clean Catch Micro? Not Indicated Culture? Not Indicated U Cannab Scrn Negative U Oxycod Scr Negative U Amph Scr Negative U Carol Scr Negative U Benzodia Scr Negative U Cocaine Scr Negative U Methadone Scr Negative U Opiate Scr Negative U Phencyclidine Scr Negative U Propoxyphene Scr Negative U Methamp Scrn Negative U Tricyclic Antidepress Scr Negative.Reexamination/ ReevaluationThis patient was brought to the emergency department by a friend for complaints of major depression and suicidal thoughts. Plan is for medical clearance and then he is to be taken to [address] at [facility] for psychiatric admission. Patient with very flat affect. Slow to answer quesions. Urine tox is negative. ETOH, ASA and acetaminophen levels are negative. CMP with sodium 138, potassium 4, chloride 106 and CO2 23. Glucose of 91 with normal BUN and creatinine 17 and 0.77. Liver function is normal with total bili at 0.2, alkaline phosphatase 81, AST 18 ALT of 15. TSH is normal 1.54. CBC without leukocytosis with WBC 67.2 and H&H at 14 and 41.2. Urinalysis without leukocytes or nitrites. Patient is here with a very good friend who is willing to stay with her. She will transport the patient directly to [address] as arrabnged by counsellor and accepted by Dr. Hackett.Impression and PlanDiagnosisSuicidal thoughts ([id number] R45.851, Discharge, Medical)Depression, major ([id number] F32.9, Discharge, Medical)PlanDisposition: Transfer to other location: Time: 01/07/18 15:05:00, Facility name: [facility], Accepted by: Dr. Hackett, [address], Time 01/07/18 14:50:00, Referral to [facility].Patient was given the following educational materials: Major Depressive Disorder, Adult.Follow up with: Report directly to [facility] main entrance to admitting office. You will be taken to [facility] for admission by hospital personnel 01/07/2018 4:00 PM; .Counseled: Patient, Friend, Regarding diagnosis, Regarding diagnostic results, Regarding treatment plan, Regarding prescription, Patient indicated understanding of instructions.DISCHARGE INFORMATION:Discharge Disposition: Disch /Transfer to Psychiatric FacilityDis[facility]: [facility]kyPATIENT EDUCATION INFORMATIONInstructions: Major Depressive Disorder, AdultFollow-Up:With: Address: When:Report directly to [facility] main entrance to admitting office. You will be taken to [address] [place] [address] for admission by hospital personnel 01/07/2018 4:00 PMDIAGNOSIS:Depression, major; Suicidal thoughtsPatient Understands:Comment: [facility] ED Note - Otheron 01-07-2018 ED Note - Other 1454- I faxed over p atient information at this time to [facility],to Adrian Cordon, for medical clearance[Electronically Signed on: 01/07/2018 14:57 EDT] Familia Robertson[Verified on: 01/07/2018 14:57 EDT] Familia Robertson [facility] ED Note - Physicianon 2017 ED Note - Physician Patient: MONET RECINOS : 57 years Sex: FEMALE : 64Associated Diagnoses: Suicidal thoughts; Depression, majorAuthor: Todd Gaxiola InformationTime seen: Date & time 01/07/18 13:40:00.History source: Patient.Arrival mode: Private vehicle.History limitation: None.Additional information: Chief Complaint from Nursing Triage Note : Chief Ougjfypnf19/13/18 13:28 EDT Chief Complaint sent from [facility] for medical clearance, depressed/anxiety .History of Present Gfrdcvg80-fizt-pab female presents to the emergency department for medical clearance for psychiatric admission. Patient is feeling very depressed. She states she feels like she just wants to go to sleep and never wake up. She was seen at [facility] and will be admitted to [address]Review of SystemsConstitutional symptoms: No fever, no chills.Skin symptoms: dry skin, no jaundice, no rash.ENMT symptoms: No ear pain, no sore throat, no nasal congestion.Respiratory symptoms: No shortness of breath, no cough.Cardiovascular symptoms: No chest pain, no palpitations, no tachycardia, no syncope.Gastrointestinal symptoms: No abdominal pain,Neurologic symptoms: No headache, no dizziness.Psychiatric symptoms: Depression, No substance abuse, Additional review of systems information: All other systems reviewed and otherwise negative.Health StatusAllergies:No active allergies have been recorded..Past Medical/ Family/ Social HistoryMedical history:No active or resolved past medical history items have been selected or recorded..Surgical history:No active procedure history items have been selected or recorded..Family history:No family history items have been selected or recorded..Social history:Social & Psychosocial HabitsNo Data Available.Problem list:No qualifying data available.Physical Examination Vital SignsVital Signs01/07/18 13:28 EDT Temperature Oral 37 DegC Peripheral Pulse Rate 80 bpm Respiratory Rate 18 br/min Systolic Blood Pressure 117 mmHg Diastolic Blood Pressure 90 mmHg SpO2 97 %.General: Alert, no acute distress.Skin: Warm, dry, pink, intact.Head: Normocephalic, atraumatic.Eye: Pupils are equal, round and reactive to light, normal conjunctiva.Ears, nose, mouth and throat: Oral mucosa moist.Cardiovascular: Regular rate and rhythm, No murmur, Normal peripheral perfusion, No edema.Respiratory: Lungs are clear to auscultation, respirations are non-labored, breath sounds are equal, Symmetrical chest wall expansion.Back: Nontender, Normal range of motion.Musculoskeletal: Normal ROM, normal strength.Neurological: Alert and oriented to person, place, time, and situation, normal motor observed, normal speech observed, normal coordination observed.Psychiatric: Mood and affect: Depressed, flat, Behavior: Relaxed, Abnormal / Psychotic thoughts: Suicidal.Medical Decision MakingDifferential Diagnosis: Depression, suicide risk.Documents reviewed: Emergency department nurses' notes, [facility].Orders Launch OrdersLaboratory:Urinalysis with Culture, if indicated Standard (Order): Urine, Stat collect, 01/07/18 13:43 EDT, Nurse collectTSH w/ Reflex to FT4 (Order): Blood, Stat collect, 01/07/18 13:43 EDT, Lab CollectTriage Panel 12 (Order): Urine, Stat collect, 01/07/18 13:43 EDT, Nurse collect, Clean CatchSalicylate Level (Order): Blood, Stat collect, 01/07/18 13:43 EDT, Lab CollecthCG urine Qualitative 1 (Order): Urine, Stat collect, 01/07/18 13:42 EDT, Nurse collectEtOH. (Order): Blood, Stat collect, 01/07/18 13:42 EDT, Lab CollectCMP Standard (Order): Blood, Stat collect, 01/07/18 13:42 EDT, Lab CollectCBC w/ Auto Diff (Order): Blood, Stat collect, 01/07/18 13:42 EDT, Lab CollectAcetaminophen Level (Order): Blood, Stat collect, 01/07/18 13:42 EDT, Lab Collect.Results review: Lab results : Lab Hcjwbnwyp28/13/18 14:19 EDT Sodium Level 138.0 mmol/L Potassium Level 4.0 mmol/L Chloride Level 106 mmol/L CO2 23 mmol/L Anion Gap 13.0 mmol/L Glucose Level 91.0 mg/dL BUN 17 mg/dL Creatinine Level 0.77 mg/dL BUN/Creat Ratio 22.0 HI eGFR AA >60 mL/min/1.73m2 NA eGFR Non AA >60 mL/min/1.73m2 NA Calcium Level 8.8 mg/dL LOW Alk Phos 81 IU/L AST/SGOT 18 IU/L ALT/SGPT 15.0 IU/L Protein Total 7.4 gm/dL Albumin Level 3.8 gm/dL Globulin 3.6 gm/dL A/G Ratio 1.1 LOW Osmolality 277 mOsm/L NA TSH 1.54 mcIU/mL WBC 7.2 x103/mcL RBC 4.90 x106/mcL Hgb 14.0 gm/dL Hct 41.2 % HI MCV 84 fL MCH 29 pg MCHC 34 gm/dL RDW 17.0 % HI Platelet 268 x103/mcL MPV 9.8 fL Auto Neut % 54 % Auto Lymph % 39 % Auto [place] % 6 % Auto Eos % 1.4 % Auto Baso % 0.6 % Neut Abs# 3.9 x103/mcL Lymph Abs# 2.8 x103/mcL [place] Abs# 0.4 x103/mcL Eos Abs# 0.1 x103/mcL Baso Abs# 0.0 x103/mcL Salicylate Lvl <4.0 mg/dL Acetaminoph Lvl <10 mcg/mL Ethanol Level <5.0 mg/dL Tube Collected Yes Tube Collected Yes01/07/18 13:55 EDT UA Color YELLOW UA Clarity CLEAR UA Glucose NEGATIVE UA Ketones NEGATIVE UA Spec Grav >=1.030 UA Blood NEGATIVE UA pH 6.0 UA Protein NEGATIVE mg/dL UA Urobilinogen 0.2 mg/dL UA Nitrite NEGATIVE UA Leuk Est NEGATIVE UA Bilirubin NEGATIVE Urine Source Clean Catch Urine Source Clean Catch Micro? Not Indicated Culture? Not Indicated U Cannab Scrn Negative U Oxycod Scr Negative U Amph Scr Negative U Carol Scr Negative U Benzodia Scr Negative U Cocaine Scr Negative U Methadone Scr Negative U Opiate Scr Negative U Phencyclidine Scr Negative U Propoxyphene Scr Negative U Methamp Scrn Negative U Tricyclic Antidepress Scr Negative.Reexamination/ ReevaluationThis patient was brought to the emergency department by a friend for complaints of major depression and suicidal thoughts. Plan is for medical clearance and then he is to be taken to [address] at [facility] for psychiatric admission. Patient with very flat affect. Slow to answer quesions. Urine tox is negative. ETOH, ASA and acetaminophen levels are negative. CMP with sodium 138, potassium 4, chloride 106 and CO2 23. Glucose of 91 with normal BUN and creatinine 17 and 0.77. Liver function is normal with total bili at 0.2, alkaline phosphatase 81, AST 18 ALT of 15. TSH is normal 1.54. CBC without leukocytosis with WBC 67.2 and H&H at 14 and 41.2. Urinalysis without leukocytes or nitrites. Patient is here with a very good friend who is willing to stay with her. She will transport the patient directly to [address] as arrabnged by counsellor and accepted by Dr. Hackett.Impression and PlanDiagnosisSuicidal thoughts ([id number] R45.851, Discharge, Medical)Depression, major (UQE14-RO F32.9, Discharge, Medical)PlanDisposition: Transfer to other location: Time: 01/07/18 15:05:00, Facility name: [facility], Accepted by: Dr. Hackett, [address] [place] [address], Time 01/07/18 14:50:00, Referral to [facility].Patient was given the following educational materials: Major Depressive Disorder, Adult.Follow up with: Report directly to [facility] main entrance to admitting office. You will be taken to [address] [place] [address] for admission by hospital personnel 01/07/2018 4:00 PM; .Counseled: Patient, Friend, Regarding diagnosis, Regarding diagnostic results, Regarding treatment plan, Regarding prescription, Patient indicated understanding of instructions.[Electronicall y Signed on: 01/07/2018 15:18 EDT] Rylee Gaxiola[Electronically Signed on: 01/07/2018 20:18 EDT] Nadege Fernandez MD[Verified on: 01/07/2018 15:18 EDT] Rylee Gaxiola [facility] ED Note-Nursingon 01-07-2018 ED Note-Nursing Pt is transferred to [facility] per private vehicle to be admitted to [address] [place] [address] room 1, bed #2. Pt's friend is driving her to [facility].The pt andher friend were instructed to report to [facility] front lobby, admitting department and then the pt. will be escorted to [address] [place] [address] per Security. pt had not beloingins with her at this time but the clothining on her back. [facility] ED Note-Nursing Pt sitting on the ca rt in ER room 4. Upon entering the room the pt did establish eye contact but she is blunted and does not initiate any conversation. She will look at you and she will answer questions. She admits that she just came from [facility] and she states I don't feel right . Pt states she is taking her meds as she is supposed to but she feels like I want to go to sleep and not wake up Pt states she does feel depressed and she does not feel suicidal, she just feel sad. Her TOP FLAVOR ATTENDANT is Dr. Rodriguez and she can not recall her Psychiatrist's name.Her friend brought lto the ER from [facility]. [facility] ED Patient Education Noteon 01-07-2018 ED Patient Education Note Education [facility] Behavior[facility] HealthMajor Depressive Disorder, AdultMajor depressive disorder (MDD) is a mental health condition. It may also be called clinical depression or unipolar depression. MDD usually causes feelings of sadness, hopelessness, or helplessness. MDD can also cause physical symptoms. It can interfere with work, school, relationships, and other everyday activities. MDD may be mild, moderate, or severe. It may occur once (single episode major depressive disorder) or it may occur multiple times (recurrent major depressive disorder).What are the causes?The exact cause of this condition is not known. MDD is most likely caused by a combination of things, which may include:? Genetic factors. These are traits that are passed along from parent to child.? Individual factors. Your personality, your behavior, and the way you handle your thoughts and feelings may contribute to MDD. This includes personality traits and behaviors learned from others.? Physical factors, such as:? Differences in the part of your brain that controls emotion. This part of your brain may be different than it is in people who do not have MDD.? Long-term (chronic) medical or psychiatric illnesses.? Social factors. Traumatic experiences or major life changes may play a role in the development of MDD.What increases the risk?This condition is more likely to develop in women. The following factors may also make you more likely to develop MDD:? A family history of depression.? Troubled family relationships.? Abnormally low levels of certain brain chemicals.? Traumatic events in childhood, especially abuse or the loss of a parent.? Being under a lot of stress, or long-term stress, especially from upsetting life experiences or losses.? A history of:? Chronic physical illness.? Other mental health disorders.? Substance abuse.? Poor living conditions.? Experiencing social exclusion or discrimination on a regular basis.What are the signs or symptoms?The main symptoms of MDD typically include:? Constant depressed or irritable mood.? Loss of interest in things and activities.MDD symptoms may also include:? Sleeping or eating too much or too little.? Unexplained weight change.? Fatigue or low energy.? Feelings of worthlessness or guilt.? Difficulty thinking clearly or making decisions.? Thoughts of suicide or of harming others.? Physical agitation or weakness.? Isolation.Severe cases of MDD may also occur with other symptoms, such as:? Delusions or hallucinations, in which you imagine things that are not real (psychotic depression).? Low-level depression that lasts at least a year (chronic depression or persistent depressive disorder).? Extreme sadness and hopelessness (melancholic depression).? Trouble speaking and moving (catatonic depression).How is this diagnosed?This condition may be diagnosed based on:? Your symptoms.? Your medical history, including your mental health history. This may involve tests to evaluate your mental health. You may be asked questions about your lifestyle, including any drug and alcohol use, and how long you have had symptoms of MDD.? A physical exam.? Blood tests to rule out other conditions.You must have a depressed mood and at least four other MDD symptoms most of the day, nearly every day in the same 2-week timeframe before your health care provider can confirm a diagnosis of MDD.How is this treated?This condition is usually treated by mental health professionals, such as psychologists, psychiatrists, and clinical social workers. You may need more than one type of treatment. Treatment may include: ? Psychotherapy. This is also called talk therapy or counseling. Types of psychotherapy include:? Cognitive behavioral therapy (CBT). This type of therapy teaches you to recognize unhealthy feelings, thoughts, and behaviors, and replace them with positive thoughts and actions.? Interpersonal therapy (IPT). This helps you to improve the way you relate to and communicate with others.? Family therapy. This treatment includes members of your family.? Medicine to treat anxiety and depression, or to help you control certain emotions and behaviors.? Lifestyle changes, such as:? Limiting alcohol and drug use.? Exercising regularly.? Getting plenty of sleep.? Making healthy eating choices.? Spending more time outdoors.Treatments involving stimulation of the brain can be used in situations with extremely severe symptoms, or when medicine or other therapies do not work over time. These treatments include electroconvulsive therapy, transcranial magnetic stimulation, and vagal nerve stimulation.Follow these instructions at home:Activity? Return to your normal activities as told by your health care provider.? Exercise regularly and spend time outdoors as told by your health care provider.General instructions? Take vwvx-vol-jakbrpp and prescription medicines only as told by your health care provider.? Do not drink alcohol. If you drink alcohol, limit your alcohol intake to no more than 1 drink a day for non women and 2 drinks a day for men. One drink equals 12 oz of beer, 5 oz of wine, or 1? oz of hard liquor. Alcohol can affect any antidepressant medicines you are taking. Talk to your health care provider about your alcohol use.? Eat a healthy diet and get plenty of sleep.? Find activities that you enjoy doing, and make time to do them.? Consider joining a support group. Your health care provider may be able to recommend a support group.? Keep all follow-up visits as told by your health care provider. This is important.Where to find more information:National [place] on Mental Illness? www.[place]ora.orgU.S. National [place] of Mental Health? www.nimh.nih.govNational Suicide Prevention Lifeline? 9-990-128-TALK (2097). This is free, 24-hour help.Contact a health care provider if:? Your symptoms get worse.? You develop new symptoms.Get help right away if:? You self-harm.? You have serious thoughts about hurting yourself or others.? You see, hear, taste, smell, or feel things that are not present (hallucinate).This information is not intended to replace advice given to you by your health care provider. Make sure you discuss any questions you have with your health care provider.Document Released: 08/08/2013 Document Revised: 12/18/2016 Document Reviewed: 10/22/2016Cathi Interactive Patient Education ? 2017 [employer]. Normal [facility] ED Patient Summaryon 018 ED Patient Summary [facility] - [facility] [address] [place] [address] pATIENT DISCHARGE INSTRUCTIONSPatient InformationName: MONET RECINOS Age: 57 YearsDate of : 64MRN: [id number] For Visit: General medical; MEDICAL CLEARENCEArrival Time: 01/07/18 13:27:00Phone: Primary Care Physician: Provider, NoneAttending Physician: Nadege Fernandez MDComment:Visit Diagnosis:Diagnoses This Visit Depression, major (F32.9) General medical ([id number]) Suicidal thoughts (R45.851)If you received any narcotics, sedation, or any other medication that causes drowsiness for the next 24 hours, unless otherwise directed:? Do not drive a car.? Do not operate machinery such as power tools, lawn mowers, drills, sewing machines, or stoves? Avoid alcoholic beverages and drugs for allergies, nerves, or sleep? Do not make important personal or business decisions or sign any legal documentsWith: Address: When:Report directly to [facility] main entrance to admitting office. You will be taken to [address] [place] [address] for admission by hospital personnel 01/07/2018 4:00 PMMedication Information:The exam and treatment you received today in the [facility] Emergency Department were for an urgent problem and are not intended as complete care. It is important for you to follow up with a doctor, nurse practitioner, or physician?s transportation assistant for ongoing care. If your symptoms become worse or you do not improve as expected and you are unable to reach your usual health care provider, you should return to the Emergency Department, we are available 24 hours a day.For those patients who have received Radiology results, the interpretation of your X-ray as given to you by our Emergency Department physician is only a preliminary report. The Radiologist will review your films and if there is a change in the diagnosis you will be notified by phone. Please make sure you have provided a working phone number so we can reach you if necessary.In the event that you had a lab culture while you were a patient in the Emergency Department, you will be notified by phone if there is a need to change your antibiotic. Please make sure you have provided a working phone number so we can reach you if necessary.[facility] Emergency Department has provided you with a complete list of medications post discharge. 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 Any specific questions regarding your chronic medications and dosages should be discussed with your primary care physician(s) and/or pharmacist. Medications to Continue That Have Not ChangedOther MedicationsclonazePAM (KlonoPIN) Oral 3 times a day.lurasidone (Latuda) Oral every day.mirtazapine (Remeron) Oral once a day (at bedtime).Visit InformationAllergies:Substa nce Reaction Symptoms Type CommentsMorphine Sulfate Drugpenicillin DrugVital Signs: Vitals and Measurements this Visit (last charted value for your 01/07/2018 visit) Vital Signs This Visit Temperature Oral: 37 DegC Peripheral Pulse Rate: 80 bpm Respiratory Rate: 18 br/min Systolic Blood Pressure: 117 mmHg Diastolic Blood Pressure: 90 mmHg SpO2: 97 % Measurements This Visit Height/Length Dosin.000 cm Height/Length Estimated: 175.000 cm Weight Dosin.000 kg Weight Estimated: 99.000 kgProblems List:Problem Onset CommentsNo Problems foundPatient EducationMajor Depressive Disorder, AdultMajor depressive disorder (MDD) is a mental health condition. It may also be called clinical depression or unipolar depression. MDD usually causes feelings of sadness, hopelessness, or helplessness. MDD can also cause physical symptoms. It can interfere with work, school, relationships, and other everyday activities. MDD may be mild, moderate, or severe. It may occur once (single episode major depressive disorder) or it may occur multiple times (recurrent major depressive disorder).What are the causes?The exact cause of this condition is not known. MDD is most likely caused by a combination of things, which may include:? Genetic factors. These are traits that are passed along from parent to child.? Individual factors. Your personality, your behavior, and the way you handle your thoughts and feelings may contribute to MDD. This includes personality traits and behaviors learned from others.? Physical factors, such as:? Differences in the part of your brain that controls emotion. This part of your brain may be different than it is in people who do not have MDD.? Long-term (chronic) medical or psychiatric illnesses.? Social factors. Traumatic experiences or major life changes may play a role in the development of MDD.What increases the risk?This condition is more likely to develop in women. The following factors may also make you more likely to develop MDD:? A family history of depression.? Troubled family relationships.? Abnormally low levels of certain brain chemicals.? Traumatic events in childhood, especially abuse or the loss of a parent.? Being under a lot of stress, or long-term stress, especially from upsetting life experiences or losses.? A history of:? Chronic physical illness.? Other mental health disorders.? Substance abuse.? Poor living conditions.? Experiencing social exclusion or discrimination on a regular basis.What are the signs or symptoms?The main symptoms of MDD typically include:? Constant depressed or irritable mood.? Loss of interest in things and activities.MDD symptoms may also include:? Sleeping or eating too much or too little.? Unexplained weight change.? Fatigue or low energy.? Feelings of worthlessness or guilt.? Difficulty thinking clearly or making decisions.? Thoughts of suicide or of harming others.? Physical agitation or weakness.? Isolation.Severe cases of MDD may also occur with other symptoms, such as:? Delusions or hallucinations, in which you imagine things that are not real (psychotic depression).? Low-level depression that lasts at least a year (chronic depression or persistent depressive disorder).? Extreme sadness and hopelessness (melancholic depression).? Trouble speaking and moving (catatonic depression).How is this diagnosed?This condition may be diagnosed based on:? Your symptoms.? Your medical history, including your mental health history. This may involve tests to evaluate your mental health. You may be asked questions about your lifestyle, including any drug and alcohol use, and how long you have had symptoms of MDD.? A physical exam.? Blood tests to rule out other conditions.You must have a depressed mood and at least four other MDD symptoms most of the day, nearly every day in the same 2-week timeframe before your health care provider can confirm a diagnosis of MDD.How is this treated?This condition is usually treated by mental health professionals, such as psychologists, psychiatrists, and clinical social workers. You may need more than one type of treatment. Treatment may include: ? Psychotherapy. This is also called talk therapy or counseling. Types of psychotherapy include:? Cognitive behavioral therapy (CBT). This type of therapy teaches you to recognize unhealthy feelings, thoughts, and behaviors, and replace them with positive thoughts and actions.? Interpersonal therapy (IPT). This helps you to improve the way you relate to and communicate with others.? Family therapy. This treatment includes members of your family.? Medicine to treat anxiety and depression, or to help you control certain emotions and behaviors.? Lifestyle changes, such as:? Limiting alcohol and drug use.? Exercising regularly.? Getting plenty of sleep.? Making healthy eating choices.? Spending more time outdoors.Treatments involving stimulation of the brain can be used in situations with extremely severe symptoms, or when medicine or other therapies do not work over time. These treatments include electroconvulsive therapy, transcranial magnetic stimulation, and vagal nerve stimulation.Follow these instructions at home:Activity? Return to your normal activities as told by your health care provider.? Exercise regularly and spend time outdoors as told by your health care provider.General instructions? Take [id number] and prescription medicines only as told by your health care provider.? Do not drink alcohol. If you drink alcohol, limit your alcohol intake to no more than 1 drink a day for non women and 2 drinks a day for men. One drink equals 12 oz of beer, 5 oz of wine, or 1? oz of hard liquor. Alcohol can affect any antidepressant medicines you are taking. Talk to your health care provider about your alcohol use.? Eat a healthy diet and get plenty of sleep.? Find activities that you enjoy doing, and make time to do them.? Consider joining a support group. Your health care provider may be able to recommend a support group.? Keep all follow-up visits as told by your health care provider. This is important.Where to find more information:National [place] on Mental Illness? www.isadora.orgU.S. National [place] of Mental Health? www.nimh.nih.govNational Suicide Prevention Lifeline? 9-814-935-TALK (0398). This is free, 24-hour help.Contact a health care provider if:? Your symptoms get worse.? You develop new symptoms.Get help right away if:? You self-harm.? You have serious thoughts about hurting yourself or others.? You see, hear, taste, smell, or feel things that are not present (hallucinate).This information is not intended to replace advice given to you by your health care provider. Make sure you discuss any questions you have with your health care provider.Document Released: 08/08/2013 Document Revised: 12/18/2016 Document Reviewed: 10/22/2016Cathi Interactive Patient Education ? 2017 [employer]. Viruses or BacteriaWhat?s got you sick?Antibiotics only treat bacterial infections. Viral illnesses cannot be treated with antibiotics. When an antibiotic is not prescribed, ask your healthcare professional for tips on how to relieve symptoms and feel better. Usual CauseIllnessVirusesBacteria Antibiotic NeededCold/Runny Nose NOBronchitis/Chest Cold (in otherwise healthy children and adults) NOWhooping Cough YesFlu NOStrep Throat YesSore Throat (except strep) NOFluid in the middle ear (otitis media with effusion) NOUrinary Tract Infection YesAntibiotics Aren?t Always the Answerwww.cdc.gov/getsmart GET SMART Know When Antibiotics [place] Department of Health and Human ServicesCenters for Disease Control and Prevention December 2013 Normal [facility] Ethanol.on 01-07-2018 Ethanol Level <5.0 Normal 0.0-5.0 [facility] Comment on above: Performed By: #### 1 [id number] ####[facility] (DEFAULT)[address] [place] [id number] Extra Redon 01-07-2018 Tube Collected Yes Invalid Interpretation Code [facility] Comment on above: Performed By: #### 6 [id number] ####[facility] (DEFAULT)[address] [place] [address] Salicylateon 01-07-2018 Salicylate Lvl <4.0 Normal 0.0-30.0 [facility] Comment on above: Result Comment: Sali cylate ranges less than 30 mg/dL are considered to be therapeutic. Levels greater than 30 mg/dL are considered toxic and levels greater than 60 mg/dL may be lethal. Performed By: #### 6 [id number] ####[facility] (DEFAULT)[address] [place] [address] TSH w/ Reflex to FT4on 01-07 Thyrotropin Qn 1.54 mcIU/mL Normal 0.45-5.33 [facility] Comment on above: Result Comment: Gene ral Population (males and non- females, aged 21-88) 0.45 - 5.33 Females, 1st Trimester 0.05 - 3.70 Females, 2nd Trimester 0.31 - 4.35 Females, 3rd Trimester 0.41 - 5.18 Performed By: #### 1 [id number], [id number] ####[facility] (DEFAULT)[address] [place] [address] Transfer Noteon 01-07-2018 Transfer Note [id number] [facility] Triage Panel 12on 01-07-2018 Protein mass conc Negative [facility] Comment on above: Performed By: #### 1 [id number], [id number] ####[facility] (DEFAULT)[address] [place] [address] Triage Internal Control Pass [facility] Comment on above: Performed By: #### 1 [id number], [id number] ####[facility] (DEFAULT)[address] [place] [address] U Amph Scr Negative [facility] Comment on above: Performed By: #### 1 [id number], [id number] ####[facility] (DEFAULT)[address] [place] [address] U Carol Scr Negative [facility] Comment on above: Performed By: #### 1 [id number], [id number] ####[facility] (DEFAULT)[address] [place] [address] U Benzodia Scr Negative [facility] Comment on above: Performed By: #### 1 [id number], [id number] ####[facility] (DEFAULT)[address] [place] [address]87[address] U Cannab Scrn Negative [facility] Comment on above: Performed By: #### 1 [id number], [id number] ####[facility] (DEFAULT)[address] [place] [address] 78828 U Cocaine Scr Negative [facility] Comment on above: Performed By: #### 1 [id number], [id number] ####[facility] (DEFAULT)[address] [place] [address] 24574 U Methadone Scr Negative [facility] Comment on above: Performed By: #### 1 [id number], [id number] ####[facility] (DEFAULT)[address] [place] [address] 59953 U Methamp Scrn Negative [facility] Comment on above: Performed By: #### 1 [id number], [id number] ####[facility] (DEFAULT)[address] [place] [address] 33631 U Opiate Scr Negative [facility] Comment on above: Performed By: #### 1 [id number], [id number] ####[facility] (DEFAULT)[address] [place] [address] 42761 U Oxycod Scr Negative [facility] Comment on above: Performed By: #### 1 [id number], [id number] ####[facility] (DEFAULT)[address] [place] [address] 76551 U Phencyclidine Scr Negative [facility] Comment on above: Performed By: #### 1 [id number], [id number] ####[facility] (DEFAULT)[address] [place] [address] 15394 U Tricyclic Antidepress Scr Negative [facility] Comment on above: Performed By: #### 1 [id number], [id number] ####[facility] (DEFAULT)[address] [place] [address] 09846 Urine Source Clean Catch [facility] Comment on above: Performed By: #### 1 [id number], [id number] ####[facility] (DEFAULT)[address] [place] [address] 56798 UA w Culture if Ind Standard on 01-07-2018 Breakpoint UA [facility] Comment on above: Performed By: #### 1 [id number], [id number] ####[facility] (DEFAULT)[address] [place] [address]148 Color Nom (U) YELLOW Invalid Interpretation Code [facility] Comment on above: Performed By: #### 1 [id number], [id number] ####[facility] (DEFAULT)[address] [place] [address] 33587 Culture? Not Indicated Invalid Interpretation Code [facility] Comment on above: Performed By: #### 1 [id number], [id number] ####[facility] (DEFAULT)[address] [place] [address] 84221 Glucose mass conc (U) Negative Invalid Interpretation Code [facility] Comment on above: Performed By: #### 1 [id number], [id number] ####[facility] (DEFAULT)[address] [place] [address] 34069 Ketones Ql (U) Negative Invalid Interpretation Code [facility] Comment on above: Performed By: #### 1 [id number], [id number] ####[facility] (DEFAULT)[address] [place] [address] 24881 Micro? Not Indicated Invalid Interpretation Code [facility] Comment on above: Performed By: #### 1 [id number], [id number] ####[facility] (DEFAULT)[address] [place] [address] 67552 UA Bilirubin Negative Normal [facility] Comment on above: Performed By: #### 1 [id number], [id number] ####[facility] (DEFAULT)[address] [place] [address] 62839 UA Blood Negative Normal NEGATIVE [facility] Comment on above: Performed By: #### 1 [id number], [id number] ####[facility] (DEFAULT)[address] [place] [address] 05360 UA Clarity CLEAR Normal CLEAR [facility] Comment on above: Performed By: #### 1 [id number], [id number] ####[facility] (DEFAULT)[address] [place] [address] 53937 UA Leuk Est Negative Normal NEGATIVE [facility] Comment on above: Performed By: #### 1 [id number], [id number] ####[facility] (DEFAULT)[address] [place] [address] 98059 UA Nitrite Negative Normal NEGATIVE [facility] Comment on above: Performed By: #### 1 [id number], [id number] ####[facility] (DEFAULT)[address] [place] [address] 59618 UA pH 6.0 Invalid Interpretation Code 5-8 [facility] Comment on above: Performed By: #### 1 [id number], [id number] ####[facility] (DEFAULT)[address] [place] [address] 20380 UA Protein Negative Normal NEGATIVE [facility] Comment on above: Performed By: #### 1 [id number], [id number] ####[facility] (DEFAULT)[address] [place] [address] 74624 UA Spec Grav >=1.030 Invalid Interpretation Code 1.001-1.03 5 [facility] Comment on above: Performed By: #### 1 [id number], [id number] ####[facility] (DEFAULT)[address] [place] [address] 14980 UA Urobilinogen 0.2 mg/dL Normal 0.2-1.0 [facility] Comment on above: Performed By: #### 1 [id number], [id number] ####[facility] (DEFAULT)[address] [place] [address] 66399 Urine Source Clean Catch Normal [facility] Comment on above: Performed By: #### 1 [id number], [id number] ####[facility] (DEFAULT)[address] [place] [address] 09921 Vital Signs Date Time Vital Sign Value Performing Clinician Facility 01-03-2025 11:48-0400 Body height 175.3 cm Pmh 1 [facility] 01-03-2025 11:48-0400 Body mass index (BMI) [Ratio] 36.92 kg/m2 Pm 1 [facility] 01-03-2025 11:48-0400 Body weight 113.[address] 12-19-2024 13:11-0400 Body height 175.3 cm Pm 1 [facility] 12-19-2024 13:11-0400 Body mass index (BMI) [Ratio] 36.62 kg/m2 Pmh 1 [facility] 12-19-2024 13:11-0400 Body weight 112.49 kg Pmh 1 [facility] 12-15-2024 12:37-0400 Body height 175.3 cm Rajni Cardozo DO Work Phone: [facility] 12-15-2024 12:37-0400 Body mass index (BMI) [Ratio] 35.66 kg/m2 Rajni Cardozo DO Work Phone: [facility] 12-15-2024 12:37-0400 Body temperature 98.49 [degF] Rajni Cardozo DO Work Phone: [facility] 12-15-2024 12:37-0400 Body weight 109.59 kg Rajni Cardozo DO Work Phone: [facility] 12-15-2024 12:37-0400 Diastolic blood pressure 62 mm[Hg] Rajni Cardozo DO Work Phone: [facility] 12-15-2024 12:37-0400 Heart rate 88 /min Rajni Cardozo DO Work Phone: [facility] 12-15-2024 12:37-0400 Respiratory rate 20 /min Rajni Cardozo DO Work Phone: [facility] 12-15-2024 12:37-0400 SaO2% (BldA) [Mass fraction] 95 % Rajni Cardozo DO Work Phone: [facility] 12-15-2024 12:37-0400 Systolic blood pressure 110 mm[Hg] Rajni Cardozo DO Work Phone: [facility] 12-05-2024 09:21-0400 SaO2% (BldA) [Mass fraction] 92 % MYRIAM ALMANZAPAS [facility] Comment on above: Performed By: #### VBG #### [facility] ([facility]) [address] [place] [address] VIR 12-04-2024 13:28-0400 SaO2% (BldA) [Mass fraction] 94 % [facility] Comment on above: Performed By: #### BMP #### [facility] ([facility]) [address] [place] [address] VIR 12-04-2024 07:16-0400 SaO2% (BldA) [Mass fraction] 100 % [facility] Comment on above: Performed By: #### VBG ####[facility] ([facility])[address] [place] [address].[place] [address] VIR 11-28-2024 13:57-0400 Body height 175.3 cm Odessa Cook RETAIL ADVERTISING EXECUTIVE-THIRD OFFICER Work Phone: [facility] 11-28-2024 13:57-0400 Body mass index (BMI) [Ratio] 37.97 kg/m2 Odessa Salcedouikilo RETAIL ADVERTISING EXECUTIVE-THIRD OFFICER Work Phone: [facility] [facility] 11-28-2024 13:57-0400 Body weight 116.62 kg Odessa Cook RETAIL ADVERTISING EXECUTIVE-THIRD OFFICER Work Phone: [facility] [employer] [facility] 11-28-2024 13:57-0400 Diastolic blood pressure 74 mm[Hg] Odessa Cook RETAIL ADVERTISING EXECUTIVE-THIRD OFFICER Work Phone: [facility] 11-28-2024 13:57-0400 Heart rate 96 /min Odessa Salcedouikilo RETAIL ADVERTISING EXECUTIVE-THIRD OFFICER Work Phone: [facility] [employer] 11-28-2024 13:57-0400 SaO2% (BldA) [Mass fraction] 92 % Odessa Cook RETAIL ADVERTISING EXECUTIVE-THIRD OFFICER Work Phone: [facility] [employer] 11-28-2024 13:57-0400 Systolic blood pressure 126 mm[Hg] Odessa Cook RETAIL ADVERTISING EXECUTIVE-THIRD OFFICER Work Phone: [facility] 11-07-2024 14:17-0400 Body height 175.3 cm Rajni Perrys DO Work Phone: [facility] 11-07-2024 14:17-0400 Body mass index (BMI) [Ratio] 40.38 kg/m2 Rajni Francohas DO Work Phone: [facility] 11-07-2024 14:17-0400 Body temperature 98.4 [degF] Rajni Francohas DO Work Phone: [facility] 11-07-2024 14:17-0400 Body weight 124.1 kg Rajni Francohas DO Work Phone: [facility] 11-07-2024 14:17-0400 Diastolic blood pressure 60 mm[Hg] Rajni Francohas DO Work Phone: [facility] 11-07-2024 14:17-0400 Heart rate 90 /min Rajni Perrys DO Work Phone: [facility] 11-07-2024 14:17-0400 Respiratory rate 20 /min Rajni Francohas DO Work Phone: [facility] 11-07-2024 14:17-0400 SaO2% (BldA) [Mass fraction] 92 % Rajni Perrys DO Work Phone: [facility] 11-07-2024 14:17-0400 Systolic blood pressure 130 mm[Hg] Rajni Francohas DO Work Phone: [facility] 10-27-2024 16:17-0400 Body height 175.3 cm Rajni Francohas DO Work Phone: [facility] 10-27-2024 16:17-0400 Body mass index (BMI) [Ratio] 38.5 kg/m2 Rajni Francohas DO Work Phone: [facility] 10-27-2024 16:17-0400 Body temperature 98.29 [degF] Rajni Yuhas DO Work Phone: [facility] 10-27-2024 16:17-0400 Body weight 118.3 kg Rajni Francohas DO Work Phone: [facility] 10-27-2024 16:17-0400 Diastolic blood pressure 84 mm[Hg] Rajni Francohas DO Work Phone: [facility] 10-27-2024 16:17-0400 Heart rate 77 /min Rajni Francohas DO Work Phone: [facility] 10-27-2024 16:17-0400 Respiratory rate 20 /min Rajni Francohas DO Work Phone: [facility] 10-27-2024 16:17-0400 SaO2% (BldA) [Mass fraction] 94 % Rajni Perrys DO Work Phone: [facility] 10-27-2024 16:17-0400 Systolic blood pressure 130 mm[Hg] Rajni Francohas DO Work Phone: [facility] 10-07-2024 11:44-0400 Body height 175.3 cm Rajni Francohas DO Work Phone: [facility] 10-07-2024 11:44-0400 Body mass index (BMI) [Ratio] 36.4 kg/m2 Rajni Francohas DO Work Phone: [facility] 10-07-2024 11:44-0400 Body temperature 97.9 [degF] Rajni Francohas DO Work Phone: [facility] 10-07-2024 11:44-0400 Body weight 111.86 kg Rajni Francohas DO Work Phone: [facility] 10-07-2024 11:44-0400 Diastolic blood pressure 70 mm[Hg] Rajni Francohas DO Work Phone: [facility] 10-07-2024 11:44-0400 Heart rate 90 /min Rajni Yuhas DO Work Phone: [facility] 10-07-2024 11:44-0400 Respiratory rate 20 /min Rajni Cardozo DO Work Phone: [facility] 10-07-2024 11:44-0400 SaO2% (BldA) [Mass fraction] 97 % Rajni Cardozo DO Work Phone: [facility] 10-07-2024 11:44-0400 Systolic blood pressure 122 mm[Hg] Rajni Cardozo DO Work Phone: [facility] 09-21-2024 15:18-0400 Body height 175.3 cm Sydnie Cesar DO Work Phone: [facility] 09-21-2024 15:18-0400 Body mass index (BMI) [Ratio] 36.71 kg/m2 Sydnie Cesar DO Work Phone: [facility] 09-21-2024 15:18-0400 Body weight 112.76 kg Sydnie Cesar DO Work Phone: [facility] 09-21-2024 15:18-0400 Diastolic blood pressure 74 mm[Hg] Sydnie Cesar DO Work Phone: [facility] 09-21-2024 15:18-0400 Heart rate 93 /min Sydnie Cesar DO Work Phone: [facility] 09-21-2024 15:18-0400 SaO2% (BldA) [Mass fraction] 92 % Sydnie Cesar DO Work Phone: [facility] 09-21-2024 15:18-0400 Systolic blood pressure 141 mm[Hg] Sydnie Cesar DO Work Phone: [facility] 09-01-2024 11:05-0400 Body height 175.3 cm Myriam Peacock MD Work Phone: [facility] 09-01-2024 11:05-0400 Body mass index (BMI) [Ratio] 36.77 kg/m2 Myriam Peacock MD Work Phone: [facility] [employer] [facility] 09-01-2024 11:05-0400 Body weight 112.95 kg Myriam Peacock MD Work Phone: [facility] [employer] 09-01-2024 11:05-0400 Diastolic blood pressure 64 mm[Hg] Myriam Peacock MD Work Phone: [facility] [employer] 09-01-2024 11:05-0400 Heart rate 96 /min Myriam Peacock MD Work Phone: [facility] [employer] 09-01-2024 11:05-0400 SaO2% (BldA) [Mass fraction] 97 % Myriam Peacock MD Work Phone: [facility] [employer] 09-01-2024 11:05-0400 Systolic blood pressure 108 mm[Hg] Myriam Peacock MD Work Phone: [facility] [facility] 07-07-2024 13:09-0400 Body height 175.3 cm Rajni Cardozo DO Work Phone: [facility] [employer] 07-07-2024 13:09-0400 Body mass index (BMI) [Ratio] 35.21 kg/m2 Rajni Cardozo DO Work Phone: [facility] [facility] 07-07-2024 13:09-0400 Body temperature 98.1 [degF] Rajni Cardozo DO Work Phone: [facility] [facility] 07-07-2024 13:09-0400 Body weight 108.14 kg Rajni Cardozo DO Work Phone: [facility] [employer] 07-07-2024 13:09-0400 Diastolic blood pressure 70 mm[Hg] Rajni Cardozo DO Work Phone: [facility] [facility] 07-07-2024 13:09-0400 Heart rate 97 /min Rajni Cardozo DO Work Phone: [facility] 07-07-2024 13:09-0400 SaO2% (BldA) [Mass fraction] 95 % Rajni Cardozo DO Work Phone: [facility] 07-07-2024 13:09-0400 Systolic blood pressure 122 mm[Hg] Rajni Cardozo DO Work Phone: [facility] 03-17-2024 13:00-0500 Body height 175.3 cm Sydnie Cesar DO Work Phone: [facility] 03-17-2024 13:00-0500 Body mass index (BMI) [Ratio] 33.82 kg/m2 Sydnie Cesar DO Work Phone: [facility] 03-17-2024 13:00-0500 Body weight 103.87 kg Sydnie Cesar DO Work Phone: [facility] 03-17-2024 13:00-0500 Diastolic blood pressure 72 mm[Hg] Sydnie Cesar DO Work Phone: [facility] 03-17-2024 13:00-0500 Heart rate 114 /min Sydnie Cesar DO Work Phone: [facility] 03-17-2024 13:00-0500 SaO2% (BldA) [Mass fraction] 89 % Sydnie Cesar DO Work Phone: [facility] 03-17-2024 13:00-0500 Systolic blood pressure 115 mm[Hg] Sydnie Cesar DO Work Phone: [facility] 03-07-2024 13:10-0500 Body height 175.3 cm Rajni Cardozo DO Work Phone: [facility] 03-07-2024 13:10-0500 Body mass index (BMI) [Ratio] 32.93 kg/m2 Rajni Cardozo DO Work Phone: [facility] 03-07-2024 13:10-0500 Body temperature 98.4 [degF] Rajni Cardozo DO Work Phone: [facility] 03-07-2024 13:10-0500 Body weight 101.15 kg Rajni Cardozo DO Work Phone: [facility] 03-07-2024 13:10-0500 Diastolic blood pressure 60 mm[Hg] Rajni Cardozo DO Work Phone: [facility] 03-07-2024 13:10-0500 Heart rate 87 /min Rajni Cardozo DO Work Phone: [facility] 03-07-2024 13:10-0500 SaO2% (BldA) [Mass fraction] 93 % Rajni Cardozo DO Work Phone: [facility] 03-07-2024 13:10-0500 Systolic blood pressure 102 mm[Hg] Rajni Cardozo DO Work Phone: [facility] 02-19-2024 10:36-0400 Body height 175.3 cm Myriam Giles MD Work Phone: [facility] 02-19-2024 10:36-0400 Body mass index (BMI) [Ratio] 33.7 kg/m2 Myriam Giles MD Work Phone: [facility] 02-19-2024 10:36-0400 Body weight 103.51 kg Myriam iGles MD Work Phone: [facility] [facility] 02-19-2024 10:36-0400 Diastolic blood pressure 66 mm[Hg] Myriam Giles MD Work Phone: [facility] 02-19-2024 10:36-0400 Heart rate 71 /min Myriam Giles MD Work Phone: [facility] 02-19-2024 10:36-0400 SaO2% (BldA) [Mass fraction] 93 % Myriam Giles MD Work Phone: [facility] [facility] 02-19-2024 10:36-0400 Systolic blood pressure 100 mm[Hg] Myriam Giles MD Work Phone: [facility] 01-04-2024 13:02-0400 Body height 175.3 cm Rajni Cardozo DO Work Phone: [facility] 01-04-2024 13:02-0400 Body mass index (BMI) [Ratio] 33.4 kg/m2 Rajni Perrys DO Work Phone: [facility] 01-04-2024 13:02-0400 Body temperature 98.01 [degF] Rajni Perrys DO Work Phone: [facility] 01-04-2024 13:02-0400 Body weight 102.6 kg Rajni Cardozo DO Work Phone: [facility] 01-04-2024 13:02-0400 Diastolic blood pressure 64 mm[Hg] Rajni Cardozo DO Work Phone: [facility] 01-04-2024 13:02-0400 Heart rate 90 /min Rajni Cardozo DO Work Phone: [facility] 01-04-2024 13:02-0400 SaO2% (BldA) [Mass fraction] 93 % Rajni Cardozo DO Work Phone: [facility] 01-04-2024 13:02-0400 Systolic blood pressure 110 mm[Hg] Rajni Cardozo DO Work Phone: [facility] 12-08-2023 19:58-0400 Body height 175.3 cm Pmh 2 [facility] 12-08-2023 19:58-0400 Body mass index (BMI) [Ratio] 35.15 kg/m2 Pmh 2 [facility] 12-08-2023 19:58-0400 Body weight 107.96 kg Pmh 2 [facility] 11-02-2023 15:46-0400 Diastolic blood pressure 70 mm[Hg] Rajni Perrys DO Work Phone: [facility] 11-02-2023 15:46-0400 Systolic blood pressure 114 mm[Hg] Rajni Yuhas DO Work Phone: [facility] 11-02-2023 15:44-0400 Body height 175.3 cm Rajni Perrys DO Work Phone: [facility] 11-02-2023 15:44-0400 Body mass index (BMI) [Ratio] 35.74 kg/m2 Rajni Perrys DO Work Phone: [facility] 11-02-2023 15:44-0400 Body temperature 97.9 [degF] Rajni Perrys DO Work Phone: [facility] 11-02-2023 15:44-0400 Body weight 109.77 kg Rajni Perrys DO Work Phone: [facility] 11-02-2023 15:44-0400 Heart rate 83 /min Rajni Perrys DO Work Phone: [facility] 11-02-2023 15:44-0400 SaO2% (BldA) [Mass fraction] 96 % Rajni Perrys DO Work Phone: [facility] 09-30-2023 13:38-0400 Body height 175.3 cm Rajni Perrys DO Work Phone: [facility] 09-30-2023 13:38-0400 Body mass index (BMI) [Ratio] 35.99 kg/m2 Rajni Perrys DO Work Phone: [facility] 09-30-2023 13:38-0400 Body temperature 98.8 [degF] Rajni Perrys DO Work Phone: [facility] 09-30-2023 13:38-0400 Body weight 110.54 kg Rajni Perrys DO Work Phone: [facility] 09-30-2023 13:38-0400 Diastolic blood pressure 60 mm[Hg] Rajni Perrys DO Work Phone: [facility] 09-30-2023 13:38-0400 Heart rate 82 /min Rajni Cardozo DO Work Phone: [facility] 09-30-2023 13:38-0400 Respiratory rate 18 /min Rajni Cardozo DO Work Phone: [facility] 09-30-2023 13:38-0400 SaO2% (BldA) [Mass fraction] 93 % Rajni Cardozo DO Work Phone: [facility] 09-30-2023 13:38-0400 Systolic blood pressure 110 mm[Hg] Rajni Cardozo DO Work Phone: [facility] 09-24-2023 11:15-0400 Diastolic blood pressure 68 mm[Hg] Kacey Stephens RETAIL ADVERTISING EXECUTIVE-COMPOSITION [employer]UTTER Work Phone: [facility] 09-24-2023 11:15-0400 SaO2% (BldA) [Mass fraction] 91 % Kacey Stephens RETAIL ADVERTISING EXECUTIVE-COMPOSITION [employer]UTTER Work Phone: [facility] 09-24-2023 11:15-0400 Systolic blood pressure 110 mm[Hg] Kacey Stephens RETAIL ADVERTISING EXECUTIVE-COMPOSITION [employer]UTTER Work Phone: [facility] 09-24-2023 11:11-0400 Body height 175.3 cm Kacey Stephens RETAIL ADVERTISING EXECUTIVE-COMPOSITION [employer]UTTER Work Phone: [facility] 09-24-2023 11:11-0400 Body mass index (BMI) [Ratio] 36.56 kg/m2 Kacey Stephens RETAIL ADVERTISING EXECUTIVE-COMPOSITION [employer] Work Phone: [facility] 09-24-2023 11:11-0400 Body temperature 97.7 [degF] Kacey Stephens RETAIL ADVERTISING EXECUTIVE-COMPOSITION [employer] Work Phone: [facility] 09-24-2023 11:11-0400 Body weight 112.31 kg Kacey Stephens RETAIL ADVERTISING EXECUTIVE-COMPOSITION [employer] Work Phone: [facility] 09-24-2023 11:11-0400 Heart rate 70 /min Kacey Stephens APRN-COMPOSITION [employer] Work Phone: [facility] 09-24-2023 11:11-0400 Respiratory rate 24 /min Kacey Stephens APRN-COMPOSITION [employer] Work Phone: [facility] 09-09-2023 13:36-0400 Diastolic blood pressure 76 mm[Hg] Rajni Cardozo DO Work Phone: [facility] 09-09-2023 13:36-0400 Systolic blood pressure 124 mm[Hg] Rajni Perrys DO Work Phone: [facility] 09-09-2023 13:04-0400 Body height 175.3 cm Rajni Perrys DO Work Phone: [facility] 09-09-2023 13:04-0400 Body mass index (BMI) [Ratio] 37.07 kg/m2 Rajni Perrys DO Work Phone: [facility] 09-09-2023 13:04-0400 Body temperature 97.59 [degF] Rajni Perrys DO Work Phone: [facility] 09-09-2023 13:04-0400 Body weight 113.85 kg Rajni Perrys DO Work Phone: [facility] 09-09-2023 13:04-0400 Heart rate 88 /min Rajni Cardozo DO Work Phone: [facility] 09-09-2023 13:04-0400 SaO2% (BldA) [Mass fraction] 93 % Rajni Cardozo DO Work Phone: [facility] 08-11-2023 20:38-0400 Body height 175.3 cm Pm 2 [facility] 08-11-2023 20:38-0400 Body mass index (BMI) [Ratio] 38.1 kg/m2 Pm 2 [facility] 08-11-2023 20:38-0400 Body weight 117.03 kg Pm 2 [facility] 08-10-2023 13:53-0400 Diastolic blood pressure 76 mm[Hg] Rajni Perrys DO Work Phone: [facility] [employer] [facility] 08-10-2023 13:53-0400 Systolic blood pressure 124 mm[Hg] Rajni Francohas DO Work Phone: [facility] 08-10-2023 13:05-0400 Body height 175.3 cm Rajni Perrys DO Work Phone: [facility] 08-10-2023 13:05-0400 Body mass index (BMI) [Ratio] 38.03 kg/m2 Rajni Perrys DO Work Phone: [facility] 08-10-2023 13:05-0400 Body temperature 98.6 [degF] Rajni Perrys DO Work Phone: [facility] 08-10-2023 13:05-0400 Body weight 116.8 kg Rajni Perrys DO Work Phone: [facility] 08-10-2023 13:05-0400 Heart rate 76 /min Rajni Perrys DO Work Phone: [facility] 08-10-2023 13:05-0400 Respiratory rate 18 /min Rajni Perrys DO Work Phone: [facility] 08-10-2023 13:05-0400 SaO2% (BldA) [Mass fraction] 93 % Rajni Perrys DO Work Phone: [facility] 07-27-2023 11:00-0400 Body temperature 98.01 [degF] Rajni Francohas DO Work Phone: [facility] 07-27-2023 11:00-0400 Diastolic blood pressure 79 mm[Hg] Rajni Perrys DO Work Phone: [facility] 07-27-2023 11:00-0400 Heart rate 85 /min Rajni Perrys DO Work Phone: [facility] 07-27-2023 11:00-0400 Respiratory rate 22 /min Rajni Cardozo DO Work Phone: [facility] 07-27-2023 11:00-0400 SaO2% (BldA) [Mass fraction] 93 % Rajni Cardozo DO Work Phone: [facility] 07-27-2023 11:00-0400 Systolic blood pressure 143 mm[Hg] Rajni Cardozo DO Work Phone: [facility] 07-27-2023 05:57-0400 Body mass index (BMI) [Ratio] 33.77 kg/m2 Rajni Cardozo DO Work Phone: [facility] 07-27-2023 05:57-0400 Body weight 103.74 kg Rajni Cardozo DO Work Phone: [facility] 07-25-2023 19:05-0400 Body height 175.3 cm Rajni Cardozo DO Work Phone: [facility] 07-25-2023 17:52-0400 Body temperature 98.6 [degF] Rajni Cardozo DO Work Phone: [facility] 07-25-2023 17:52-0400 SaO2% (BldA) [Mass fraction] 95 % Rajni Cardozo DO Work Phone: [facility] 07-01-2023 14:20-0500 Body height 175.3 cm Rajni Cardozo DO Work Phone: [facility] 07-01-2023 14:20-0500 Body mass index (BMI) [Ratio] 38.42 kg/m2 Rajni Perrys DO Work Phone: [facility] 07-01-2023 14:20-0500 Body temperature 98.1 [degF] Rajni Cardozo DO Work Phone: [facility] 07-01-2023 14:20-0500 Body weight 118.03 kg Rajni Yuhas DO Work Phone: [facility] 07-01-2023 14:20-0500 Diastolic blood pressure 60 mm[Hg] Rajni Cardozo DO Work Phone: [facility] 07-01-2023 14:20-0500 Heart rate 70 /min Rajni Cardozo DO Work Phone: [facility] 07-01-2023 14:20-0500 SaO2% (BldA) [Mass fraction] 96 % Rajni Cardozo DO Work Phone: [facility] 07-01-2023 14:20-0500 Systolic blood pressure 122 mm[Hg] Rajni Cardozo DO Work Phone: [facility] 06-25-2023 10:18-0500 Body height 175.3 cm Grace Meadows DO Work Phone: [facility] 06-25-2023 10:18-0500 Body mass index (BMI) [Ratio] 37.08 kg/m2 Grace Meadows DO Work Phone: [facility] 06-25-2023 10:18-0500 Body weight 113.9 kg Grace Meadows DO Work Phone: [facility] 06-25-2023 10:18-0500 Diastolic blood pressure 75 mm[Hg] Grace Meadows DO Work Phone: [facility] 06-25-2023 10:18-0500 Heart rate 75 /min Grace Lynton DO Work Phone: [facility] 06-25-2023 10:18-0500 SaO2% (BldA) [Mass fraction] 96 % Grace Meadows DO Work Phone: [facility] 06-25-2023 10:18-0500 Systolic blood pressure 110 mm[Hg] Grace Meadows DO Work Phone: [facility] 06-01-2023 13:59-0500 Body height 175.3 cm Rajni Cardozo DO Work Phone: [facility] [employer] 06-01-2023 13:59-0500 Body mass index (BMI) [Ratio] 38.59 kg/m2 Rajni Cardozo DO Work Phone: [facility] [employer] 06-01-2023 13:59-0500 Body temperature 99.39 [degF] Rajni Cardozo DO Work Phone: [facility] 06-01-2023 13:59-0500 Body weight 118.53 kg Rajni Cardozo DO Work Phone: [facility] 06-01-2023 13:59-0500 Diastolic blood pressure 58 mm[Hg] Rajni Cardozo DO Work Phone: [facility] 06-01-2023 13:59-0500 SaO2% (BldA) [Mass fraction] 95 % Rajni Cardozo DO Work Phone: [facility] 06-01-2023 13:59-0500 Systolic blood pressure 104 mm[Hg] Rajni Cardozo DO Work Phone: [facility] 04-23-2023 07:01-0500 SaO2% (BldA) [Mass fraction] 95 % [facility] Comment on above: Performed By: #### ABG ####[facility] ([id number])[address] [place] [address] 04-19-2023 07:43-0500 SaO2% (BldA) [Mass fraction] 93 % [facility] Comment on above: Performed By: #### ABG #### [facility] ([id number]) [facility] [place] [address] 04-18-2023 10:09-0500 SaO2% (BldA) [Mass fraction] 93 % [facility] Comment on above: Performed By: #### CMP, [id number], [id number] , CBCA #### [facility] ([id number]) [address] [facility] [place] [address] 04-17-2023 07:52-0500 SaO2% (BldA) [Mass fraction] 93 % [facility] Comment on above: Performed By: #### CMP, [id number], [id number] , CBCA #### [facility] ([id number]) [address] [facility] [place] [address] 04-16-2023 06:48-0500 SaO2% (BldA) [Mass fraction] 94 % [facility] Comment on above: Performed By: #### CMP, [id number], [id number] , CBCA #### [facility] ([id number]) [address] [facility] [place] [address] 04-15-2023 07:26-0500 SaO2% (BldA) [Mass fraction] 95 % [facility] Comment on above: Performed By: #### ABG #### [facility] ([id number]) [address] [facility] [place] [address] 12-11-2022 08:40-0400 Body height John Carson Other [employer] Other 12-11-2022 08:40-0400 Body mass index (BMI) [Ratio] 38.83 kg/m2 John Carson Other [employer] Other 12-11-2022 08:40-0400 Body weight 119.3 kg John Carson Other [employer] Other 12-11-2022 08:40-0400 Diastolic blood pressure 80 mm[Hg] John Carson Other [employer] Other 12-11-2022 08:40-0400 Systolic blood pressure 126 mm[Hg] John Carson Other [employer] Other Encounters Encounter Date Encounter Type Care Provider Facility Start: 01-25-2025 End: 01-25-2025 Telephone encounter Sydniearianna Guerrero DO Work Phone: [facility] Start: 01-04-2025 End: 01-04-2025 Evaluation and management of inpatient [facility] Start: 01-03-2025 End: 01-03-2025 ambulatory [facility] Pat Phone Call Provider 1 [facility] - Pre Admit Start: 01-03-2025 End: 01-03-2025 Telephone encounter Sydnie Guerrero DO Work Phone: [facility] Start: 01-03-2025 End: 01-03-2025 ambulatory [facility] Start: 12-28-2024 End: 12-28-2024 Refill Rajni Cardoso Lukasshimaumair DO Work Phone: [facility] Comment on above: 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 Start: 12-27-2024 ambulatory [facility] Start: 12-21-2024 End: 12-21-2024 ambulatory [facility] Start: 12-19-2024 End: 12-19-2024 ambulatory [facility] Pat Phone Call Provider 1 [facility] - Pre Admit Start: 12-19-2024 End: 12-19-2024 ambulatory [facility] Start: 12-19-2024 End: 12-19-2024 ambulatory Ligia Root MD Facility:[facility] Start: 12-15-2024 End: 12-15-2024 Transitional care manage srvc 14 day discharge Rajni Perryumair DO Work Phone: [facility] Comment on above: Microcytic anemia (P rimary Dx); Gastro-esophageal reflux disease without esophagitis; Stage 3a chronic kidney disease (CMS-HCC); Spinal stenosis of lumbar region with neurogenic claudication Start: 12-15-2024 End: 12-15-2024 ambulatory [facility] Start: 12-14-2024 ambulatory [facility] Janae [facility] Start: 12-12-2024 ambulatory [facility] Start: 12-08-2024 End: 12-15-2024 Telephone encounter Liz Norman RN [facility] Comment on above: Transition Of Care Start: 12-04-2024 End: 12-06-2024 Evaluation and management of inpatient [facility] Janae [facility] Start: 12-03-2024 End: 12-03-2024 Evaluation and management of inpatient [facility] Janae [facility] Start: 11-30-2024 End: 11-30-2024 Follow-up encounter Kacey Sims RN [facility] Comment on above: Basic Metabolic Pane l Start: 11-29-2024 End: 01-29-2025 Follow-up encounter Rajni Cardozo DO Work Phone: [facility] Comment on above: X-ray knee right 3 v iews Start: 11-29-2024 ambulatory [facility] Start: 11-28-2024 End: 11-28-2024 [facility] Start: 11-28-2024 End: 11-28-2024 Office outpatient visit 25 minutes Odessa Cook RETAIL ADVERTISING EXECUTIVE-THIRD OFFICER Work Phone: [facility] Comment on above: Chronic heart failur e with preserved ejection fraction ([facility]- HCC) (Primary Dx); Pulmonary hypertension ([facility]-HCC); Nonrheumatic tricuspid valve regurgitation; Essential hypertension; Atherosclerosis of [place] coronary artery of [place] heart without angina pectoris; History of four vessel coronary artery bypass graft; NSTEMI (non-ST elevated myocardial infarction) ([facility]-HCC) Start: 11-28-2024 End: 11-28-2024 ambulatory [facility] Start: 11-23-2024 End: 11-23-2024 Refill Rajni Cardozo DO Work Phone: [facility] Comment on above: Peripheral polyneuro jose g Start: 11-14-2024 End: 11-14-2024 ambulatory Ligia Root MD Facility:[facility] Start: 11-07-2024 End: 11-07-2024 Office outpatient visit 25 minutes Rajni Francosunshine DO Work Phone: [facility] Comment on above: Hiatal hernia with G ERD (Primary Dx); Stage 3a chronic kidney disease ([facility]); Patellar tendinitis of right knee; Gastro-esophageal reflux disease without esophagitis; Venous insufficiency of both lower extremities Start: 11-07-2024 End: 11-07-2024 ambulatory [facility] Start: 11-02-2024 End: 01-02-2025 Follow-up encounter Rajni Cardoso Lukasshimaumair DO Work Phone: [facility] Comment on above: Fluoroscopy upper GI with esophagus Start: 11-02-2024 End: 11-02-2024 ambulatory [facility] Start: 10-27-2024 End: 10-27-2024 Office outpatient visit 25 minutes Rajni Cardoso Obdulia DO Work Phone: [facility] Comment on above: Type 2 diabetes johanny itus with stage 3a chronic kidney disease, without long-term current use of insulin ([facility]) (Primary Dx); Venous insufficiency of both lower extremities; Chronic heart failure with preserved ejection fraction ([facility]); Stage 3a chronic kidney disease ([facility]); Nausea and vomiting, unspecified vomiting type; Arthritis of left sacroiliac joint Start: 10-27-2024 End: 10-27-2024 ambulatory [facility] Start: 10-13-2024 End: 10-13-2024 Refill Rajni Cardozo DO Work Phone: [facility] Comment on above: Peripheral polyneuro jose g Start: 10-11-2024 ambulatory [facility] Start: 10-07-2024 End: 10-07-2024 ambulatory [facility] Start: 10-07-2024 End: 10-07-2024 Office outpatient visit 25 minutes Rajni Cardozo DO Work Phone: [facility] Comment on above: Cervicogenic headach e (Primary Dx); Orthostatic hypotension; Chronic heart failure with preserved ejection fraction (CMS-HCC); Fibromyalgia syndrome Start: 09-21-2024 End: 09-21-2024 Office outpatient visit 15 minutes Sydnie Guerrero DO Work Phone: [facility] Comment on above: Chronic obstructive pulmonary disease, unspecified COPD type (CMS/HCC) (Primary Dx); Chronic respiratory failure with hypoxia and hypercapnia (CMS/HCC); BONY (obstructive sleep apnea) Start: 09-21-2024 End: 09-21-2024 ambulatory SYDNIE Magnolia CESAR Not Available Start: 09-21-2024 End: 09-21-2024 Bamboo flowsheet Sydnie Magnolia Cesar DO Work Phone: [facility] Start: 09-21-2024 End: 09-21-2024 Bamboo flowsheet Sydnie Magnolia Cesar DO Work Phone: [facility] Start: 09-04-2024 End: 09-04-2024 Refill Rajni Perryumair DO Work Phone: [facility] Comment on above: Peripheral polyneuro jose g Start: 09-01-2024 End: 09-01-2024 Office outpatient visit 25 minutes Myriam Peacock MD Work Phone: [facility] Comment on above: Chronic heart failur e with preserved ejection fraction (CMS- HCC) (Primary Dx); Atherosclerotic heart disease of [place] coronary artery with other forms of angina pectoris; Hx of CABG Start: 09-01-2024 End: 09-01-2024 ambulatory [facility] Start: 07-15-2024 End: 07-15-2024 Refill Ching Gay RN [facility] Comment on above: Med Refill Start: 07-15-2024 End: 07-15-2024 Refill Rajni Cardozo DO Work Phone: [facility] Comment on above: Gastro-esophageal re flux disease without esophagitis Start: 07-07-2024 End: 07-07-2024 ambulatory [facility] Start: 07-07-2024 End: 07-07-2024 ambulatory [facility] Start: 07-07-2024 End: 07-07-2024 Office outpatient visit 25 minutes Rajni Cardozo DO Work Phone: [facility] Comment on above: IFG (impaired fastin g glucose) (Primary Dx); Chronic obstructive pulmonary disease, unspecified COPD type ([facility]); Stage 3a chronic kidney disease ([facility]); Chronic respiratory failure with hypoxia and hypercapnia ([facility]); Chronic heart failure with preserved ejection fraction ([facility]); Bipolar 2 disorder, major depressive episode ([facility]); BMI 40.0-44.9, adult ([facility]); Atherosclerotic heart disease of [place] coronary artery with other forms of angina pectoris ([facility]); B12 deficiency; Peripheral polyneuropathy; Arthritis of left sacroiliac joint ([facility]) Start: 05-14-2024 End: 05-14-2024 Refill Rajni Cardozo DO Work Phone: [facility] Comment on above: Peripheral polyneuro jose g Start: 04-25-2024 End: 04-26-2024 Refill Mahsa Fam RN [facility] Comment on above: Med Refill Start: 04-07-2024 End: 04-09-2024 Refill Anil Zamora APRN-THIRD OFFICER Work Phone: [facility] Comment on above: Med Refill Start: 03-29-2024 End: 03-29-2024 ambulatory [facility] Start: 03-29-2024 End: 03-29-2024 Office outpatient visit 25 minutes Rajni Cardozo DO Work Phone: [facility] Comment on above: Contusion of lower l eg, unspecified laterality, initial encounter (Primary Dx) Start: 03-29-2024 End: 03-29-2024 Telephone encounter [facility] Start: 03-21-2024 End: 03-21-2024 ambulatory Ligia Root MD Facility:[facility] Start: 03-17-2024 End: 03-17-2024 Bamboo flowsheet Sydnie Merida Cesar DO Work Phone: [facility] Start: 03-17-2024 End: 03-17-2024 Bamboo flowsheet Sydnie Magnolia Cesar DO Work Phone: [facility] Start: 03-17-2024 End: 03-17-2024 Office outpatient new 45 minutes Sydnie K Cesar DO Work Phone: [facility] Comment on above: Chronic obstructive pulmonary disease, unspecified COPD type (CMS/HCC) (Primary Dx); Chronic respiratory failure with hypoxia and hypercapnia (CMS/HCC); Cigarette smoker Start: 03-17-2024 End: 03-17-2024 ambulatory SYDNIE GUERRERO Not Available Start: 03-09-2024 End: 03-09-2024 Refill Rajni Cardozo DO Work Phone: [facility] Comment on above: Gastro-esophageal re flux disease without esophagitis Start: 03-07-2024 End: 03-07-2024 ambulatory [facility] Start: 03-07-2024 End: 03-07-2024 Office outpatient visit 25 minutes Rajni Cardoso Lukassunshine DO Work Phone: [facility] Comment on above: IFG (impaired fastin g glucose) (Primary Dx); Peripheral polyneuropathy; Stage 3a chronic kidney disease ([facility]-HCC); Chronic heart failure with preserved ejection fraction ([facility]-HCC); Atherosclerotic heart disease of [place] coronary artery with other forms of angina pectoris ([facility]-HCC) Start: 03-07-2024 End: 03-07-2024 ambulatory [facility] Start: 02-29-2024 End: 02-29-2024 ambulatory Ligia Root MD Facility:[facility] Start: 02-22-2024 End: 02-24-2024 Telephone encounter Monica Johnston [facility] Start: 02-22-2024 End: 02-22-2024 ambulatory Ligia Root MD Facility:[facility] Start: 02-19-2024 End: 02-19-2024 Office outpatient visit 15 minutes Alex Amos MD Work Phone: [facility] Comment on above: 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 ([facility]) (Primary Dx) Start: 02-19-2024 End: 02-19-2024 ambulatory MYRIAM Garcia [facility] Start: 02-18-2024 End: 02-18-2024 Telephone encounter Vicki Bailey [facility] Start: 02-09-2024 End: 02-09-2024 Bamboo flowsheet Eusebia Huertas DO Work Phone: [facility] Start: 02-09-2024 End: 02-09-2024 Bamboo flowsheet Eusebia Huertas DO Work Phone: [facility] Start: 02-09-2024 End: 02-09-2024 ambulatory EUSEBIA HUERTAS Not Available Start: 02-09-2024 End: 02-09-2024 Office outpatient visit 10 minutes Eusebia Huertas DO Work Phone: [facility] Comment on above: Trigger point of lef t side of body (Primary Dx); Arthritis of left sacroiliac joint ([facility]/HCC); Lumbosacral pain; Pain of left sacroiliac joint Start: 02-03-2024 End: 02-09-2024 Telephone encounter [facility] Start: 02-01-2024 End: 02-01-2024 Telephone encounter Grace Meadows DO Work Phone: [facility] Start: 01-26-2024 End: 01-26-2024 Office outpatient visit 15 minutes Eusebia Huertas DO Work Phone: [facility] Comment on above: Left shoulder pain, unspecified chronicity (Primary Dx); Arthritis of left shoulder region Start: 01-26-2024 End: 01-26-2024 ambulatory EUSEBIA HUERTAS Not Available Start: 01-21-2024 End: 01-21-2024 Orders Only Cynthia Buchanan RETAIL ADVERTISING EXECUTIVE-THIRD OFFICER Work Phone: [facility] Comment on above: Chronic heart failur e with preserved ejection fraction ([facility]-HCC) Start: 01-20-2024 End: 01-20-2024 Refill Yadira Barrera RN [facility] Comment on above: Med Refill Start: 01-20-2024 End: 01-21-2024 Refill Rajni Cardozo DO Work Phone: [facility] Comment on above: Spinal stenosis of l umbar region with neurogenic claudication Med Change Request Start: 01-19-2024 End: 01-19-2024 Telephone encounter Anabela Cueva [place] [facility] Start: 01-18-2024 End: 01-18-2024 Refill Caitie Cabello RN [facility] Comment on above: Med Refill Start: 01-14-2024 ambulatory GRACE MEADOWS [facility] Start: 01-12-2024 End: 01-12-2024 Bamboo flowsheet Eusebia Huertas DO Work Phone: [facility] Start: 01-12-2024 End: 01-12-2024 Bamboo flowsheet Eusebia Huertas DO Work Phone: [facility] Start: 01-12-2024 End: 01-12-2024 ambulatory EUSEBIA HUERTAS Not Available Start: 01-12-2024 End: 01-12-2024 Office outpatient visit 10 minutes Eusebia Huertas DO Work Phone: [facility] Comment on above: Trigger point of lef t side of body (Primary Dx) Start: 01-07-2024 End: 01-07-2024 Telephone encounter Sofya Coe [facility] Internal Medicine - Family Medicine Start: 01-04-2024 End: 01-04-2024 ambulatory [facility] Start: 01-04-2024 End: 01-04-2024 Office outpatient visit 25 minutes [facility] DO Work Phone: [facility] Internal Medicine - Family Medicine Comment on above: Chronic respiratory failure with hypoxia and hypercapnia (CMS- HCC) (Primary Dx); BONY treated with BiPAP; Spinal stenosis of lumbar region with neurogenic claudication; Chronic heart failure with preserved ejection fraction (CMS-HCC) Start: 01-04-2024 End: 01-04-2024 ambulatory [facility] Start: 01-01-2024 End: 01-01-2024 Refill [facility] DO Work Phone: [facility] Internal Medicine - Family Medicine Comment on above: Spinal stenosis of l umbar region with neurogenic claudication Start: 12-30-2023 End: 12-31-2023 Telephone encounter Monica Johnston [facility] Internal Medicine - Family Medicine Start: 12-29-2023 End: 12-29-2023 Bamboo flowsheet Eusebia Huertas DO Work Phone: [facility] Start: 12-29-2023 End: 12-29-2023 Bamboo flowsheet Eusebia Huertas DO Work Phone: [facility] Start: 12-29-2023 End: 12-29-2023 Office outpatient visit 25 minutes Eusebia Huertas DO Work Phone: [facility] Comment on above: Trigger point of lef t side of body (Primary Dx); Compression fracture of T6 vertebra with routine healing, subsequent encounter; Compression fracture of T8 vertebra with routine healing, subsequent encounter; Osteoporotic compression fracture of vertebra with routine healing, subsequent encounter Start: 12-29-2023 End: 12-29-2023 ambulatory EUSEBIA HUERTAS Not Available Start: 12-24-2023 End: 12-30-2023 Telephone encounter Monica Johnston [facility] Internal Medicine - Family Medicine Start: 12-17-2023 End: 12-17-2023 Telephone encounter Johnna Cortes [facility] Start: 12-15-2023 End: 12-15-2023 Telephone encounter Johnna Cortes [facility] Start: 12-10-2023 End: 12-10-2023 Telephone encounter Kaia Jovel MD Work Phone: [facility] Start: 12-08-2023 End: 12-08-2023 Clinical Support Grace Meadows DO Work Phone: [facility] - Sleep Disorders Comment on above: Arrived Start: 11-19-2023 End: 11-23-2023 Telephone encounter Tosin Reyes [facility] Internal Medicine - Family Medicine Start: 11-03-2023 End: 11-04-2023 Refill Rajni Cardozo DO Work Phone: [facility] Internal Medicine - Family Medicine Comment on above: Fibromyalgia syndrom e Start: 11-02-2023 End: 11-02-2023 ambulatory RAJNI CARDOZO [facility] Start: 11-02-2023 End: 11-02-2023 Office outpatient visit 25 minutes Rajni Cardozo DO Work Phone: [facility] Internal Medicine - Family Medicine Comment on above: Venous insufficiency of both lower extremities (Primary Dx); Chronic heart failure with preserved ejection fraction (CMS-HCC); Acute pulmonary embolism without acute cor pulmonale, unspecified pulmonary embolism type (CMS-HCC); B12 deficiency Start: 10-30-2023 End: 11-02-2023 Refill Cynthia Lou Chanel RETAIL ADVERTISING EXECUTIVE-THIRD OFFICER Work Phone: [facility] Comment on above: Shortness of breath; Chronic heart failure with preserved ejection fraction (CMS-HCC) Start: 10-27-2023 End: 10-27-2023 ambulatory EUSEBIA HUERTAS Not Available Start: 10-21-2023 End: 10-21-2023 Refill Rajni Cardozo DO Work Phone: [facility] Internal Medicine - Family Medicine Start: 10-07-2023 End: 10-07-2023 Telephone encounter Daisha Marquez [facility] General Surgery Start: 10-06-2023 End: 10-06-2023 Refill Rajni Cardozo DO Work Phone: [facility] Internal Medicine - Family Medicine Comment on above: Spinal stenosis of l umbar region with neurogenic claudication (Primary Dx) Start: 10-02-2023 End: 10-02-2023 Refill Cynthia Lou Chanel RETAIL ADVERTISING EXECUTIVE-THIRD OFFICER Work Phone: [facility] Comment on above: Chronic heart failur e with preserved ejection fraction ([facility]- HCC); Atherosclerosis of [place] coronary artery of [place] heart without angina pectoris Start: 10-01-2023 End: 10-01-2023 Refill Monica Preston [facility] Internal Medicine - Family Medicine Comment on above: Closed wedge hailee teo fracture of T6 vertebra with routine healing Start: 09-30-2023 End: 09-30-2023 ambulatory [facility] Start: 09-30-2023 End: 09-30-2023 Office outpatient visit 25 minutes Rajni Cardoso Obdulia DO Work Phone: [facility] Internal Medicine - Family Medicine Comment on above: Closed wedge hailee teo fracture of T6 vertebra with routine healing (Primary Dx); Acute pulmonary embolism without acute cor pulmonale, unspecified pulmonary embolism type (CMS-HCC); Venous insufficiency of both lower extremities; Chronic respiratory failure with hypoxia and hypercapnia (CMS-HCC); Chronic heart failure with preserved ejection fraction ([facility]); Spinal stenosis of lumbar region with neurogenic claudication; Peripheral polyneuropathy; B12 deficiency Start: 09-24-2023 End: 09-24-2023 Office outpatient visit 25 minutes Kacey Stephens RETAIL ADVERTISING EXECUTIVE-COMPOSITION [employer] Work Phone: [facility] - [facility] Medicine Comment on above: Flu-like symptoms (P rimary Dx); Community acquired pneumonia, unspecified laterality; Chronic heart failure with preserved ejection fraction ([facility]) Start: 09-22-2023 End: 09-22-2023 Refill Monica Johnston CMA [facility] - Family Medicine Comment on above: Closed wedge hailee teo fracture of T6 vertebra with routine healing Start: 09-10-2023 End: 09-10-2023 Refill Rajni Cardozo DO Work Phone: [facility] - Family Medicine Comment on above: Gastro-esophageal re flux disease without esophagitis Start: 09-09-2023 End: 09-09-2023 Transitional care manage srvc 14 day discharge Rajni Cardozo DO Work Phone: [facility] - Family Medicine Comment on above: Closed wedge hailee teo fracture of T6 vertebra with routine healing (Primary Dx); Acute pulmonary embolism without acute cor pulmonale, unspecified pulmonary embolism type ([facility]); Spinal stenosis of lumbar region with neurogenic claudication Start: 08-17-2023 End: 08-17-2023 Telephone encounter Orders Support User Transcribe [facility] Division of [facility] - Sleep Disorders Comment on above: Sleep Lab (Pap Order ) Start: 08-14-2023 End: 08-14-2023 Refill Génesis Jesus [facility] Comment on above: BONY (obstructive sle ep apnea) (Primary Dx); Hypoxemia associated with sleep Start: 08-13-2023 End: 08-14-2023 Telephone encounter Kaia Jovel MD Work Phone: [facility] Start: 08-11-2023 End: 08-11-2023 Clinical Support Grace Meadows DO Work Phone: [facility] - Sleep Disorders Comment on above: BONY treated with BiP AP Start: 08-10-2023 End: 08-10-2023 Transitional care manage srvc 14 day discharge Rajni Cardozo DO Work Phone: [facility] - Family Medicine Comment on above: Unilateral groin mook n, right (Primary Dx); Spinal stenosis of lumbar region with neurogenic claudication; Chronic respiratory failure with hypoxia and hypercapnia (CMS-HCC); Chronic heart failure with preserved ejection fraction (CMS-HCC); BONY treated with BiPAP; Bipolar disorder in partial remission, most recent episode unspecified type (CMS-HCC) Start: 08-06-2023 End: 08-06-2023 Telephone encounter Maryellen CASTRO [facility] Start: 07-31-2023 Telephone encounter Grace anderson DO Work Phone: [facility] Start: 07-25-2023 End: 07-27-2023 Evaluation and management of inpatient Mary Lock MD Work Phone: [facility] - Acute Care Comment on above: Chronic respiratory failure with hypoxia and hypercapnia (CMS- HCC) (Primary Dx); COPD exacerbation (CMS-HCC); Acute respiratory failure with hypoxia and hypercapnia (CMS-HCC); Hypoxia Start: 07-01-2023 End: 07-01-2023 Office outpatient visit 25 minutes Rajni Cardozo DO Work Phone: [facility] - [facility] Medicine Comment on above: Fibromyalgia syndrom e (Primary Dx); Stage 3a chronic kidney disease (CMS-HCC); BONY treated with BiPAP; Chronic heart failure with preserved ejection fraction (CMS-HCC); Obesity (BMI 30-39.9) Start: 06-25-2023 Telephone encounter Grace anderson DO Work Phone: [facility] - Sleep Disorders Comment on above: Sleep Lab (Split Nig ht) Start: 06-25-2023 End: 06-25-2023 Office outpatient visit 25 minutes Grace Meadows DO Work Phone: [facility] Comment on above: BONY treated with BiP AP (Primary Dx); Chronic obstructive pulmonary disease, unspecified COPD type ([facility]-HCC); Shortness of breath; Cigarette nicotine dependence in remission Start: 06-01-2023 End: 06-01-2023 Transitional care manage srvc 7 day discharge Rajni Cardoso Obdulia DO Work Phone: [facility] Internal Medicine - Family Medicine Comment on above: Chronic heart failur e with preserved ejection fraction ([facility]- HCC) (Primary Dx); Bipolar disorder in partial remission, most recent episode unspecified type ([facility]); Atherosclerotic heart disease of [place] coronary artery with other forms of angina pectoris ([facility]); BMI 40.0-44.9, adult ([facility]); BONY treated with BiPAP Start: 05-18-2023 Orders Only Grace duncan DO Work Phone: [facility] Pulmonary/Sleep Medicine Start: 04-28-2023 End: 04-30-2023 Evaluation and management of inpatient [facility] Start: 04-28-2023 End: 04-30-2023 Evaluation and management of inpatient [facility] Start: 04-23-2023 End: 04-30-2023 Evaluation and management of inpatient [facility] Start: 04-22-2023 End: 04-30-2023 Evaluation and management of inpatient [facility] Start: 04-21-2023 End: 04-30-2023 Evaluation and management of inpatient [facility] Start: 04-20-2023 End: 04-30-2023 Evaluation and management of inpatient [facility] Start: 04-19-2023 End: 04-30-2023 Evaluation and management of inpatient [facility] Start: 04-18-2023 End: 04-30-2023 Evaluation and management of inpatient [facility] Start: 04-17-2023 End: 04-30-2023 Evaluation and management of inpatient CEE Garcia [facility] Start: 04-16-2023 End: 04-30-2023 Evaluation and management of inpatient CEE Garcia [facility] Start: 04-15-2023 End: 04-30-2023 Evaluation and management of inpatient CEE Garcia [facility] Start: 04-15-2023 End: 04-30-2023 Evaluation and management of inpatient WILBER FRASER [facility] Start: 04-15-2023 End: 04-29-2023 Evaluation and management of inpatient LIDIA Oliva [facility] Start: 12-11-2022 Office outpatient ne w 30 minutes John Carson [facility] Neurosurgery Start: 12-11-2022 End: 12-11-2022 ambulatory Myriam Fowler Facility:[facility] Start: 12-11-2022 End: 12-11-2022 ambulatory JEFFERSON Fowler Work Phone: [facility] Work Phone: Start: 12-11-2022 End: 12-11-2022 Patient encounter procedure JEFFERSON Fowler Work Phone: [facility] Work Phone: Start: 01-24-2022 End: 01-24-2022 ambulatory Kg Huerta Facility:[facility] Start: 01-07-2018 End: 01-07-2018 Emergency department patient visit Nadege Fernandez Facility:[facility] Procedures Date Procedure Procedure Detail Performing Clinician Start: 12-15-2024 Basic metabolic panel calcium total Rajni Cardozo DO Work Phone: Start: 12-15-2024 Adult depression screening assessment Liz Norman RN Start: 11-28-2024 History of coronary artery bypass grafting History of four vessel coronary artery bypass graft Odessa Cook RETAIL ADVERTISING EXECUTIVE-THIRD OFFICER Work Phone: Start: 11-07-2024 Adult depression screening assessment Rajni Cardozo DO Work Phone: Start: 10-27-2024 Comprehensive metabolic panel Rajni Cardozo DO Work Phone: Start: 10-27-2024 Adult depression screening assessment Rajni Cardozo DO Work Phone: Start: 10-07-2024 Adult depression screening assessment Rajni Cardozo DO Work Phone: Start: 07-07-2024 Adult depression screening assessment Rajni Cardozo DO Work Phone: Start: 02-19-2024 Follow-up visit Follow-up MYRIAM GILES Start: 01-26-2024 Arthrocentesis aspir&/inj major jt/bursa w/o us Eusebia Huertas DO Work Phone: Start: 01-26-2024 Radex shoulder complete minimum 2 views Eusebia Obregon Aleksandar DO Work Phone: Start: 01-14-2024 Follow-up visit Follow-up GRACE MEADOWS Start: 01-04-2024 Adult depression screening assessment Rajni Cardozo DO Work Phone: Start: 12-29-2023 Injection single/equipment records supervisor trigger point 1/2 muscles Brittnee Deel ARRT Work Phone: Start: 12-29-2023 Radex spine 1 view specify level Eusebia Obregon Aleksandar DO Work Phone: Start: 11-02-2023 Adult depression screening assessment Rajni Cardozo DO Work Phone: Start: 09-30-2023 Adult depression screening assessment Rajni Cardozo DO Work Phone: Start: 09-24-2023 POCT INFLUENZA A/INFLUENZA B/SARS-COV-2 VERITOR Kacey Stephens RETAIL ADVERTISING EXECUTIVE-COMPOSITION RO[employer]TER Work Phone: Start: 09-24-2023 Adult depression screening assessment Kacey Stephens RETAIL ADVERTISING EXECUTIVE-COMPOSITION RO[employer]TER Work Phone: Start: 09-09-2023 Adult depression screening assessment Rajni Cardozo DO Work Phone: Start: 08-10-2023 Adult depression screening assessment Rajni Cardozo DO Work Phone: Start: 07-27-2023 Basic metabolic panel calcium total Rajni Gimenez MD Work Phone: Start: 07-26-2023 PULSE OXIMETRY, SPOT Rajni Gimenez MD Work Phone: Start: 07-26-2023 Basic metabolic panel calcium total Rajni Gimenez MD Work Phone: Start: 07-25-2023 Assay of lactate Mary Lock MD Work Phone: Start: 07-25-2023 End: 07-25-2023 Culture bacterial blood aerobic w/id isolates Mary Lock MD Work Phone: Start: 07-25-2023 SARS/FLU A+B/RSV BY NAAT/MOLECULAR (M4RT COLLECTION TUBE) Mary Lock MD Work Phone: Start: 07-25-2023 Blood gases any combination ph pco2 po2 co2 hco3 Mary Lock MD Work Phone: Start: 07-25-2023 End: 07-25-2023 VENTILATION Mary Lock MD Work Phone: Start: 07-25-2023 Radiologic exam chest 2 views Mary Lock MD Work Phone: Start: 07-25-2023 PM ED CRITICAL CARE Mary Lock MD Work Phone: Start: 07-25-2023 Basic metabolic panel calcium total Mary Lock MD Work Phone: Start: 07-25-2023 Ecg routine ecg w/least 12 lds trcg only w/o i&r Mary Lock MD Work Phone: Start: 07-01-2023 Adult depression screening assessment Rajni Cardozo DO Work Phone: Start: 06-01-2023 Adult depression screening assessment Rajni Cardozo DO Work Phone: Start: 12-11-2022 X-ray of lumbar spine, six views including bending views JEFFERSON Fowler Work Phone: Start: 09-26-2022 History of coronary artery bypass grafting Hx of CABG Grace Meadows DO Work Phone: Start: 02-18-2022 Microscopic observation [Identifier] in Cervix by Cyto stain Grace Meadows DO Work Phone: Start: 08-06-2020 Adult depression screening assessment Grace Meadows DO Work Phone: History of coronary artery bypass grafting Hx of CABG Myriam Peacock MD Work Phone: History of coronary artery bypass grafting History of four vessel coronary artery bypass graft Kacey Sims RN Plan of Treatment Date Care Activity Detail Author Start: 01-04-2026 Adult BMI Screening Adult BMI Screening [facility] Start: 01-04-2026 Tobacco Screening Tobacco Screening [facility] Start: 12-19-2025 Adult BMI Screening Adult BMI Screening [facility] Start: 12-19-2025 Tobacco Screening Tobacco Screening [facility] Start: 12-15-2025 Adult BMI Screening Adult BMI Screening [facility] Start: 12-15-2025 Depression Screening Depression Screening [facility] Start: 12-15-2025 Tobacco Screening Tobacco Screening [facility] Start: 11-28-2025 Adult BMI Screening Adult BMI Screening [facility] Start: 11-28-2025 Tobacco Screening Tobacco Screening [facility] Start: 11-07-2025 Adult BMI Screening Adult BMI Screening [facility] Start: 11-07-2025 Depression Screening Depression Screening [facility] Start: 11-07-2025 Tobacco Screening Tobacco Screening [facility] Start: 10-27-2025 Adult BMI Screening Adult BMI Screening [facility] Start: 10-27-2025 Depression Screening Depression Screening [facility] Start: 10-27-2025 Tobacco Screening Tobacco Screening [facility] Start: 10-07-2025 Adult BMI Screening Adult BMI Screening [facility] Start: 10-07-2025 Depression Screening Depression Screening [facility] Start: 09-01-2025 Adult BMI Screening Adult BMI Screening [facility] Start: 09-01-2025 Tobacco Screening Tobacco Screening [facility] Start: 07-07-2025 Adult BMI Screening Adult BMI Screening [facility] Start: 07-07-2025 Depression Screening Depression Screening [facility] Start: 07-07-2025 Tobacco Screening Tobacco Screening [facility] Start: 04-26-2025 Statin Use: Cardiovascular Statin Use: Cardiovascular [facility] Start: 04-26-2025 Statin Use: Diabetic Statin Use: Diabetic [facility] Start: 03-08-2025 End: 03-08-2025 Patient encounter procedure 03/08/2025 3:15 PM EST Off ice Visit [facility] [address] [place] [address] Sydnie Guerrero, DO [address] [place] [address] [facility] Start: 03-07-2025 Administration of varicella zoster vaccine Zoster (Shingles) Vaccine (1 of 2) [facility] Comment on above: Postponed from 2012 (Patient Refus ed) Start: 03-07-2025 Adult BMI Screening Adult BMI Screening [facility] Start: 03-07-2025 Tobacco Screening Tobacco Screening [facility] Start: 02-18-2025 Adult BMI Screening Adult BMI Screening [facility] Start: 02-18-2025 Screening for malignant neoplasm of cervix Pap Smear [facility] Start: 02-18-2025 Tobacco Screening Tobacco Screening [facility] Start: 02-08-2025 End: 02-08-2025 Patient encounter procedure 02/08/2025 1:30 PM EDT Off ice Visit [facility] Medicine - Family Medicine [address] [place] [address] Rajni Cardozo, [address] [place] [address] [facility] - Family Medicine Start: 02-06-2025 End: 02-06-2025 Patient encounter procedure 02/06/2025 3:30 PM EDT Off ice Visit [facility] [address] [place] [address] Risa Summers MD [address] [place] [address] [facility] Start: 01-13-2025 Adult BMI Screening Adult BMI Screening [facility] Start: 01-13-2025 Tobacco Screening Tobacco Screening [facility] Start: 01-04-2025 End: 01-04-2025 Admission to same day surgery center 01/04/2025 10:00 AM EDT - 01/04/2025 11:00 AM EDT Surgery [facility] - Endoscopy [address] [place] [address] Rajni Cardozo, DO [address] [place] [address] ESOPHAGOGASTRODUODENOSCOPY DIAGNOSTIC [11201 (CPT )] [facility] End[facility] Comment on above: ESOPHAGOGASTRODUODENOSCOPY DIAGNOSTIC [4 3235 (CPT )] Start: 01-04-2025 Subsequent hospital visit by physician 01/04/2025 10:00 AM EDT Hospital Encounter [facility] [address] [place] [address] Rajni Cardozo, DO [address] [place] [address] [facility] Start: 01-04-2025 End: 01-04-2025 Esophagogastroduodenoscopy transoral diagnostic [facility] Start: 01-03-2025 End: 01-03-2025 ambulatory 01/03/2025 3:50 PM EDT Support Visit [facility] - Pre Admit [address] [place] [address] [facility] - Pre Admit Start: 01-03-2025 Adult BMI Screening Adult BMI Screening [facility] Start: 01-03-2025 Depression Screening Depression Screening [facility] Start: 01-03-2025 Tobacco Screening Tobacco Screening [facility] Start: 12-21-2024 End: 12-21-2024 Patient encounter procedure 12/21/2024 7:30 AM EDT Appointment [facility] - Cardiovascular [address] [place] [address] Odessa Cook, RETAIL ADVERTISING EXECUTIVE-THIRD OFFICER [address] [place] [address] [facility] Start: 12-20-2024 End: 12-20-2024 Admission to same day surgery center 12/20/2024 10:00 AM EDT - 12/20/2024 11:00 AM EDT Surgery [facility] Endoscopy [address] [place] [address] Rajni Cardozo, DO [address] [place] [address] ESOPHAGOGASTRODUODENOSCOPY DIAGNOSTIC [17344 (CPT )] [facility] Comment on above: ESOPHAGOGASTRODUODENOSCOPY DIAGNOSTIC [4 3235 (CPT )] Start: 12-20-2024 End: 12-20-2024 Esophagogastroduodenoscopy transoral diagnostic ESOPHAGOGASTRODUODENOSCOPY DIAGNOSTIC microcytic anemia 12/20/2024 10:00 AM EDT [facility] Start: 12-20-2024 Subsequent hospital visit by physician 12/20/2024 10:00 AM EDT Hospital Encounter [facility] [address] [place] [address] Rajni Cardozo, DO [address] [place] [address] [facility] Start: 12-19-2024 End: 12-19-2024 ambulatory 12/19/2024 2:40 PM EDT Support Visit [facility] - Pre Admit [address] [place] [id number] [facility] - Pre Admit Start: 12-16-2024 Adult BMI Screening Adult BMI Screening [facility] Start: 12-16-2024 Tobacco Screening Tobacco Screening [facility] Start: 12-08-2024 End: 12-08-2024 ambulatory 12/08/2024 9:00 AM EDT Lab [facility] - Lab [address] [facility] [place] [phone] [facility] - Lab Start: 12-07-2024 Adult BMI Screening Adult BMI Screening [facility] Start: 12-07-2024 End: 12-07-2024 Patient encounter procedure 12/07/2024 2:00 PM EDT [facility] [address] [place] [address] Rajni Cardozo, [address] [place] [address] [facility] Internal Medicine - Family Medicine Start: 12-07-2024 Tobacco Screening Tobacco Screening [facility] Start: 12-06-2024 Adult BMI Screening Adult BMI Screening [facility] Start: 12-06-2024 End: 12-06-2024 Patient encounter procedure 12/06/2024 10:30 AM EDT Appointment [facility] [address] [place] [address] [place] [phone] [facility] Start: 11-28-2024 End: 11-28-2025 Echo complete W/O contrast Echo complete W/O contrast Echocardiography Routine Chronic heart failure with preserved ejection fraction ([facility]) Pulmonary hypertension ([facility]) Nonrheumatic tricuspid valve regurgitation Essential hypertension Atherosclerosis of still[place] coronary artery of [place] heart without angina pectoris History of four vessel coronary artery bypass graft NSTEMI (non-ST elevated myocardial infarction) ([facility]) Expected: 11/28/2024, Expires: 11/28/2025 [facility] Comment on above: Expected: 11/28/2024, Expires: Start: 11-28-2024 End: 11-28-2024 Patient encounter procedure 11/28/2024 2:00 PM EDT Off ice Visit [facility] [address] [place] [address] Odessa Cook, RETAIL ADVERTISING EXECUTIVE-THIRD OFFICER [address] [place] [phone] [facility] Start: 11-07-2024 End: 11-07-2024 Patient encounter procedure 11/07/2024 2:30 PM EDT Off ice Visit [facility] Internal Medicine - Family Medicine [address] [place] [address] Rajni Cardozo, DO [address] [place] [address] [facility] Internal Medicine - Family Medicine Start: 11-07-2024 End: 11-07-2025 XR Knee - right 3 Views X-ray knee right 3 views Imaging Routine Patellar tendinitis of right knee Expected: 11/07/2024, Expires: 11/07/2025 [facility] Work Phone: Comment on above: Expected: 11/07/2024, Expires: Start: 11-02-2024 End: 11-02-2024 Patient encounter procedure 11/02/2024 8:30 AM EDT Appointment [facility] - Radiology [address] [place] [phone] [facility] Start: 11-01-2024 End: 11-01-2024 Patient encounter procedure 11/01/2024 4:30 PM EDT Appointment [facility] [address] [place] [phone] Cervicogenic headache [facility] Comment on above: Cervicogenic headache Start: 11-01-2024 Adult BMI Screening Adult BMI Screening [facility] Start: 11-01-2024 Depression Screening Depression Screening [facility] Start: 11-01-2024 Tobacco Screening Tobacco Screening [facility] Start: 10-27-2024 End: 10-27-2025 RF Gastrointestinal tract upper Views W air contrast PO and W barium contrast PO Fluoroscopy upper GI with esophagus Imaging Routine Nausea and vomiting, unspecified vomiting type Expected: 10/27/2024, Expires: 10/27/2025 [facility] Comment on above: Expected: 10/27/2024, Expires: Start: 10-19-2024 Adult BMI Screening Adult BMI Screening [facility] Start: 10-19-2024 Tobacco Screening Tobacco Screening [facility] Start: 10-07-2024 End: 10-07-2024 Patient encounter procedure 10/07/2024 11:30 AM EDT Office [facility] Medicine [address] [place] [address] Rajni Cardozo DO [address] [place] [address] [facility] - Family Medicine Start: 09-29-2024 Adult BMI Screening Adult BMI Screening [facility] Start: 09-29-2024 Depression Screening Depression Screening [facility] Start: 09-29-2024 Tobacco Screening Tobacco Screening [facility] Start: 09-23-2024 Adult BMI Screening Adult BMI Screening [facility] Start: 09-23-2024 Depression Screening [facility] Screening [facility] Start: 09-23-2024 Tobacco Screening [facility] Start: 09-21-2024 End: 09-21-2024 Patient encounter procedure 09/21/2024 3:00 PM EDT Off ice Visit [facility] [address] [place] [phone] Sydnie Guerrero, DO [address] [facility] [place] [address] Arrived [facility] Comment on above: Arrived Start: 09-17-2024 Adult BMI Screening Adult BMI Screening [facility] Start: 09-08-2024 Adult BMI Screening Adult BMI Screening [facility] Start: 09-08-2024 Depression Screening [facility] Start: 09-08-2024 Tobacco Screening Tobacco Screening [facility] Start: 08-10-2024 Adult BMI Screening Adult BMI Screening [facility] Start: 08-10-2024 Tobacco Screening Tobacco Screening [facility] Start: 08-09-2024 Adult BMI Screening Adult BMI Screening [facility] Start: 08-09-2024 Depression Screening Depression Screening [facility] Start: 08-09-2024 Tobacco Screening Tobacco Screening [facility] Start: 08-02-2024 Adult BMI Screening Adult BMI Screening [facility] Start: 08-02-2024 Tobacco Screening Tobacco Screening [facility] Start: 07-26-2024 Adult BMI Screening Adult BMI Screening [facility] Start: 07-24-2024 Tobacco Screening Tobacco Screening [facility] Start: 06-30-2024 Adult BMI Screening Adult BMI Screening [facility] Start: 06-30-2024 Depression Screening Depression Screening [facility] Start: 06-30-2024 Tobacco Screening Tobacco Screening [facility] Start: 06-29-2024 End: 06-29-2024 Patient encounter procedure 06/29/2024 3:00 PM EST Off ice Visit [facility] [address] [place] [phone] Sydnie Guerrero, DO [address] [place] [address] [facility] Start: 06-24-2024 Adult BMI Screening Adult BMI Screening [facility] Start: 06-24-2024 Tobacco Screening Tobacco Screening [facility] Start: 06-08-2024 End: 06-08-2024 Patient encounter procedure 06/08/2024 1:00 PM EST Off ice Visit [facility] - Family Medicine [address] [place] [address] Rajni Cardozo, DO [address] [place] [address] [facility] - Family Medicine Start: 06-01-2024 Adult BMI Screening Adult BMI Screening [facility] Start: 06-01-2024 Depression Screening Depression Screening [facility] Start: 06-01-2024 Tobacco Screening Tobacco Screening [facility] Start: 04-29-2024 Adult BMI Screening Adult BMI Screening [facility] Start: 04-29-2024 Tobacco Screening Tobacco Screening [facility] Start: 03-17-2024 End: 03-17-2024 Patient encounter procedure 03/17/2024 1:00 PM EST Consult [facility] [address] [place] [address] Sydnie Guerrero, DO [address] [place] [address] Arrived [facility] Comment on above: Arrived Start: 03-10-2024 End: 03-10-2024 Patient encounter procedure 03/10/2024 3:00 PM EST Off ice Visit [facility] [address] [address] [place] [address] Grace Meadows, DO [address] [address] [facility] Start: 03-07-2024 End: 03-07-2024 Patient encounter procedure 03/07/2024 1:00 PM EST Off ice Visit [facility] Internal [facility] - Family Medicine [address] [facility] [place] [address] Rajni Cardozo, DO [address] [facility] [place] [address] [facility] - Family Medicine Start: 02-19-2024 End: 02-19-2024 Patient encounter procedure 02/19/2024 10:45 AM EDT Office Visit [facility] [address] [facility] [address] [place] [address] Alex Amos MD [address] [place] [address] Myriam Giles MD [address] [place] [address] [facility] Start: 02-09-2024 End: 02-09-2024 Patient encounter procedure 02/09/2024 1:30 PM EDT Off ice Visit [facility] [address] [facility] [address] [place] [phone] Eusebia Huertas, DO [address] [place] [address] [facility] Start: 01-21-2024 End: 01-21-2024 Patient encounter procedure 01/21/2024 10:00 AM EDT Office Visit [facility] [address] [facility] [place] [address] Grace Meadows, DO [address] [address] [facility] Start: 01-19-2024 End: 01-19-2024 Patient encounter procedure [facility] Start: 01-14-2024 End: 01-14-2024 Patient encounter procedure 01/14/2024 3:00 PM EDT Off ice Visit [facility] [address] [facility] [place] [phone] Grace Meadows, DO [address] [address] [facility] Start: 01-12-2024 End: 01-12-2024 Patient encounter procedure 01/12/2024 10:45 AM EDT Office Visit [facility] [address] [place] [address] Eusebia Huertas, DO [address] [facility] [address] [place] [address] [facility] Start: 01-04-2024 End: 01-04-2024 Patient encounter procedure 01/04/2024 1:00 PM EDT Off ice Visit [facility] Internal Medicine - Family Medicine [address] [place] [address] Rajni Cardozo, DO [address] [place] [address] [facility] - Family [facility] Start: 12-29-2023 End: 12-29-2023 Patient encounter procedure 12/29/2023 10:45 AM EDT Office Visit [facility] [address] [place] [address] Eusebia Huertas, DO [address] [place] [address] Compression fracture of T6 vertebra with routine healing, subsequent encounter; Compression fracture of T8 vertebra with routine healing, subsequent encounter; Osteoporotic compression fracture of vertebra with routine healing, subsequent encounter [facility] Comment on above: Compression fracture of T6 vertebra with routine healing, subsequent encounter; Compression fracture of T8 vertebra with routine healing, subsequent encounter; Osteoporotic compression fracture of vertebra with routine healing, subsequent encounter Start: 12-27-2023 Influenza vaccination Influenza Vaccine [facility] Start: 12-07-2023 End: 12-07-2023 Clinical Support 12/07/2023 8:00 PM EDT Clinical Support [facility] - Sleep Disorders [address] [place] [address] Grace Meadows, DO [address] [address] [facility] Start: 12-03-2023 End: 12-03-2023 Patient encounter procedure 12/03/2023 10:00 AM EDT Office Visit [facility] [facility] [place] [address] Grace Meadows, DO [address] [address] [facility] Start: 11-02-2023 End: 11-02-2023 Patient encounter procedure 11/02/2023 3:30 PM EDT Off ice Visit [facility] - Family Medicine [address] [place] [address] Rajni Cardozo, DO [address] [place] [address] [facility] - Family Medicine Start: 10-06-2023 End: 10-06-2023 Patient encounter procedure [facility] - Mammogram DEXA Start: 09-30-2023 End: 09-30-2023 Patient encounter procedure 09/30/2023 1:30 PM EDT Off ice Visit [facility] - Family Medicine [address] [place] [address] Rajni Cardozo, DO [address] [place] [address] [facility] Internal Medicine - Family Medicine Start: 09-11-2023 End: 09-11-2023 Patient encounter procedure 09/11/2023 1:00 PM EDT Appointment [facility] [place] - Mammography [address] [place] [phone] [facility] [place] [facility] Start: 09-10-2023 End: 09-10-2023 Patient encounter procedure [facility] - Vascular Start: 09-10-2023 End: 09-10-2023 Patient encounter procedure 09/10/2023 8:15 AM EDT Appointment [facility] - MRI Imaging [address] [place] [address] Rajni Cardozo, DO [address] [place] [address] [facility] - MRI Imaging Start: 09-09-2023 End: 09-09-2023 Patient encounter procedure 09/09/2023 1:00 PM EDT [facility] [address] [place] [address] Rajni Cardozo, DO [address] [place] [address] [facility] Internal Medicine - Family Medicine Start: 08-11-2023 End: 08-11-2023 Clinical Support 08/11/2023 8:00 PM EDT Clinical Support [facility] - Sleep Disorders [address] [place] [phone] Grace Meadows, DO [address] [address] [facility] Start: 08-10-2023 End: 08-10-2023 Patient encounter procedure 08/10/2023 1:00 PM EDT Off ice Visit [facility] Internal Medicine - Family Medicine [address] [place] [phone] Rajni Cardozo, [address] [place] [address] [facility] Internal Medicine - Family Medicine Start: 08-03-2023 End: 08-03-2023 Patient encounter procedure 08/03/2023 10:00 AM EDT Office Visit [facility] [address] [place] [address] Cynthia Buchanan, RETAIL ADVERTISING EXECUTIVE-THIRD OFFICER [address] [place] [address] [facility] Start: 07-27-2023 End: 07-27-2023 Patient encounter procedure 07/27/2023 8:30 AM EDT Off ice Visit [facility] [address] [place] [address] Cynthia Buchanan, RETAIL ADVERTISING EXECUTIVE-THIRD OFFICER [address] [place] [address] [facility] Start: 07-01-2023 End: 07-01-2023 Patient encounter procedure [facility] - Pulmonary Function Start: 06-29-2023 End: 06-29-2023 Patient encounter procedure 06/29/2023 12:00 PM EST Office Visit [facility] Internal Medicine - Family Medicine [address] [place] [address] Rajni Cardozo, DO [address] [place] [address] [facility] - Family Medicine Start: 06-25-2023 End: 06-25-2023 Patient encounter procedure 06/25/2023 10:00 AM EST Office Visit [facility] [address] [facility] [address] [address] Grace Meadows, DO [address] [address] [facility] Start: 06-01-2023 End: 06-01-2023 Patient encounter procedure 06/01/2023 1:30 PM EST Off ice Visit [facility] - Family Medicine [address] [place] [address] Rajni Cardozo, DO [address] [place] [address] [facility] Start: 12-26-2022 Influenza vaccination Influenza Vaccine [facility] Start: 08-06-2021 Depression Screening Depression Screening [facility] Start: 2012 Administration of varicella zoster vaccine Zoster (Shingles) Vaccine (1 of 2) [facility] Start: 1981 Administration of varicella zoster vaccine Zoster (Shingles) Vaccine (1 of 2) [facility] Start: 1981 DTaP,Tdap and Td Vaccines (1 - Tdap) DTaP,Tdap and Td Vaccines (1 - Tdap) [facility] Start: 1980 Adult BMI Follow Up Plan Adult BMI Follow Up Plan [facility] Start: 1980 Diabetic foot examination Diabetic Foot Exam [facility] Start: 1962 Glaucoma screening Diabetic Ophthalmology Exam [facility] Start: 1962 Statin Use: Cardiovascular Statin Use: Cardiovascular [facility] Start: 1962 Statin Use: Diabetic Statin Use: Diabetic [facility] Start: 1962 Tobacco Counseling Tobacco Counseling [facility] [employer] Bacteria identified in Blood by Aerobe culture [employer] Work Phone: End: 11-01-2024 Basic metabolic 2000 panel - Serum or Plasma Basic Metabolic Panel Lab Routine Chronic heart failure with preserved ejection fraction ([facility]) 1 Occurrences starting 11/02/2023 until 11/01/2024 [facility] [employer] Comment on above: 1 Occurrences starting 11/02/2023 until 11/01/2024 End: 11-28-2025 Basic metabolic 2000 panel - Serum or Plasma Basic Metabolic Panel Lab Routine Chronic heart failure with preserved ejection fraction ([facility]) Pulmonary hypertension ([facility]) Nonrheumatic tricuspid valve regurgitation Essential hypertension Atherosclerosis of [place] coronary artery of [place] heart without angina pectoris History of four vessel coronary artery bypass graft NSTEMI (non-ST elevated myocardial infarction) ([facility]) 1 Occurrences starting 11/28/2024 until 11/28/2025 [employer] Work Phone: Comment on above: 1 Occurrences starting 11/28/2024 until 11/28/2025 End: 11-30-2025 Basic metabolic 2000 panel - Serum or Plasma Basic Metabolic Panel Lab Routine Chronic heart failure with preserved ejection fraction ([facility]) Essential hypertension Pulmonary hypertension ([facility]) Nonrheumatic tricuspid valve regurgitation Atherosclerosis of still[place] coronary artery of still[place] heart without angina pectoris History of four vessel coronary artery bypass graft 1 Occurrences starting 11/30/2024 until 11/30/2025 [employer] Work Phone: Comment on above: 1 Occurrences starting 11/30/2024 until 11/30/2025 End: 11-01-2024 CBC W Auto Differential panel - Blood CBC auto differential Lab Routine Chronic heart failure with preserved ejection fraction ([facility]) 1 Occurrences starting 11/02/2023 until 11/01/2024 [employer] Work Phone: Comment on above: 1 Occurrences starting 11/02/2023 until 11/01/2024 End: 07-07-2025 CBC W Auto Differential panel - Blood CBC auto differential Lab Routine Stage 3a chronic kidney disease ([facility]) 1 Occurrences starting 07/07/2024 until 07/07/2025 [employer] Work Phone: Comment on above: 1 Occurrences starting 07/07/2024 until 07/07/2025 End: 07-07-2025 Comprehensive metabolic 2000 panel - Serum or Plasma Comprehensive metabolic panel Lab Routine Stage 3a chronic kidney disease ([facility]) 1 Occurrences starting 07/07/2024 until 07/07/2025 [facility] Comment on above: 1 Occurrences starting 07/07/2024 until 07/07/2025 End: 11-01-2024 Cyanocobalamin vitamin b-12 Vitamin B12 Lab Routine B1 2 deficiency 1 Occurrences starting 11/02/2023 until 11/01/2024 [facility] Comment on above: 1 Occurrences starting 11/02/2023 until 11/01/2024 End: 07-07-2025 Cyanocobalamin vitamin b-12 Vitamin B12 Lab Routine B1 2 deficiency 1 Occurrences starting 07/07/2024 until 07/07/2025 [facility] Comment on above: 1 Occurrences starting 07/07/2024 until 07/07/2025 End: 12-15-2025 Esophagogastroduodenoscopy EGD GI Routine Microcytic anemia Gastro-esophageal reflux disease without esophagitis 1 Occurrences starting 12/15/2024 until 12/15/2025 [employer] Work Phone: Comment on above: 1 Occurrences starting 12/15/2024 until 12/15/2025 Esophagogastroduoden oscopy transoral diagnostic ESOPHAGOGASTRODUODENOSCOPY DIAGNOSTIC Microcytic anemia [facility] End: 07-07-2025 Hemoglobin A1c/Hemoglobin.total in Blood Hemoglobin A1c Lab Routine IFG (impaired fasting glucose) 1 Occurrences starting 07/07/2024 until 07/07/2025 [facility] Comment on above: 1 Occurrences starting 07/07/2024 until 07/07/2025 End: 10-27-2025 Hemoglobin A1c/Hemoglobin.total in Blood Hemoglobin A1c Lab Routine Type 2 diabetes mellitus with stage 3a chronic kidney disease, without long-term current use of insulin ([facility]) 1 Occurrences starting 10/27/2024 until 10/27/2025 [employer] Work Phone: Comment on above: 1 Occurrences starting 10/27/2024 until 10/27/2025 Hemoglobin A1c/Hemoglobin.total in Blood Hemoglobin A1c Lab Routine Type 2 diabetes mellitus with stage 3a chronic kidney disease, without long-term current use of insulin ([facility]) 10/27/2024 4:57 PM EDT [facility] End: 07-07-2025 Lipid 1996 panel - Serum or Plasma Lipid profile Lab Routine Atherosclerotic heart disease of [place] coronary artery with other forms of angina pectoris ([facility]) 1 Occurrences starting 07/07/2024 until 07/07/2025 [facility] Comment on above: 1 Occurrences starting 07/07/2024 until 07/07/2025 End: 11-01-2024 Magnesium [Mass/volume] in Serum or Plasma Magnesium Lab Routine Chronic heart failure with preserved ejection fraction ([facility]) 1 Occurrences starting 11/02/2023 until 11/01/2024 [facility] Comment on above: 1 Occurrences starting 11/02/2023 until 11/01/2024 End: 08-13-2024 Polysomnography 4 or more parameters with PAP titration Polysomnography 4 or more parameters with PAP titration Sleep Center Routine BONY (obstructive sleep apnea) Hypoxemia associated with sleep 1 Occurrences starting 08/14/2023 until 08/13/2024 [employer] Work Phone: Comment on above: 1 Occurrences starting 08/14/2023 until 08/13/2024 End: 06-24-2024 Pulmonary function test Spirometry (Flow Volume Loop) pre/post short acting bronchodilator w/ DLCO (diffusion study) Pulmonary function test Spirometry (Flow Volume Loop) pre/post short acting bronchodilator w/ DLCO (diffusion study) PFT Routine Chronic obstructive pulmonary disease, unspecified COPD type ([facility]) 1 Occurrences starting 06/25/2023 until 06/24/2024 [facility] Comment on above: 1 Occurrences starting 06/25/2023 until 06/24/2024 End: 06-24-2024 Split Night Sleep Study Split Night Sleep Study Slee p Center Routine BONY treated with BiPAP 1 Occurrences starting 06/25/2023 until 06/24/2024 [employer] Work Phone: Comment on above: 1 Occurrences starting 06/25/2023 until 06/24/2024 Immunizations Immunization Date Immunization Notes Care Provider Chyna hart 05-12-2023 tuberculin skin test ; purified protein derivative solution, intradermal Sydnie Cesar DO Work Phone: [facility] 04-30-2023 tuberculin skin test ; purified protein derivative solution, intradermal Sydnie Cesar DO Work Phone: [facility] Payers Date Payer Category Payer Medicare [id number] 2024 Unknown 2023 Medicare (Managed Care) 1.2. [id number] 2023 Medicare HMO [id number] 2023 Medicare [id number] 2023 Private Health Insurance 2022 Self-pay [id number] 2021 Medicare [id number]. [id number] 2021 Private Health Insurance [id number] 2019 Medicaid [id number]. [id number] .[id number] 2019 Medicaid [id number] 2018 Medicare [id number] 1960 Unknown [id number] 2.16.840.1.147515.3.579.2.1 286 1962 Unknown [id number] 2.16.840.1.009230.3.579.2.1 286 1962 Unknown [id number] 2.16.840.1.963879.3.579.2.1 286 1962 Unknown [id number] 2.16.840.1.699113.3.579.2.1 286 1962 Unknown [id number] 2.16.840.1.742476.3.579.2.1 286 1962 Unknown [id number] 2.16.840.1.068142.3.579.2.1 286 1962 Unknown [id number] 2.16.840.1.076908.3.579.2.1 286 1962 Unknown [id number] 2.16.840.1.221432.3.579.2.1 1962 Unknown [id number] 2.16.840.1.384727.3.579.2.1 1962 Unknown [id number] 2.16.840.1.668872.3.579.2.1 1962 Unknown [id number] 2.16.840.1.093396.3.579.2.1 286 1962 Unknown [id number] 2.16.840.1.671430.3.579.2.1 286 1962 Unknown [id number] 2.16.840.1.546030.3.579.2.1 1962 Unknown [id number] 2.16.840.1.198578.3.579.2.1 1962 Unknown [id number] 2.16.840.1.580436.3.579.2.1 286 1962 Unknown [id number] 2.16.840.1.221137.3.579.2.1 1962 Unknown [id number] 2.16.840.1.242842.3.579.2.1 1962 Unknown [id number] 2.16.840.1.766224.3.579.2.1 1962 Unknown [id number] 2.16.840.1.333264.3.579.2.1 286 1962 Unknown [id number] 2.16.840.1.595175.3.579.2.1 286 1962 Unknown [id number] 2.16.840.1.397186.3.579.2.1 259 1962 Unknown [id number] 2.16.840.1.963657.3.579.2.1 259 1962 Unknown [id number] 2.16.840.1.829197.3.579.2.1 259 1962 Unknown [id number] 2.16.840.1.147867.3.579.2.1 259 1962 Unknown [id number] 2.16.840.1.598437.3.579.2.1 259 1962 Unknown [id number] 2.16.840.1.930201.3.579.2.1 259 1962 Unknown [id number] 2.16.840.1.256572.3.579.2.1 259 1962 Unknown [id number] 2.16.840.1.838891.3.579.2.1 259 1962 Unknown [id number] 2.16.840.1.892788.3.579.2.1 259 1962 Unknown [id number] 2.16.840.1.369887.3.579.2.1 259 1962 Unknown [id number] 2.16.840.1.213469.3.579.2.1 286 1962 Unknown [id number] 2.16.840.1.404094.3.579.2.1 286 1962 Unknown [id number] 2.16.840.1.232516.3.579.2.1 286 1962 Unknown [id number] 2.16.840.1.687595.3.579.2.1 286 1962 Unknown [id number] 2.16.840.1.710609.3.579.2.1 286 1962 Unknown [id number] 2.16.840.1.693021.3.579.2.1 286 1962 Unknown [id number] 2.16.840.1.906923.3.579.2.1 286 1962 Unknown [id number] 2.16.840.1.361673.3.579.2.1 286 1962 Unknown [id number] 2.16.840.1.459275.3.579.2.1 286 1962 Unknown [id number] 2.16.840.1.449223.3.579.2.1 96 1962 Unknown [id number] 2.16.840.1.087914.3.579.2.1 96 1962 Unknown [id number] 2.16.840.1.423640.3.579.2.1 96 1962 Unknown [id number] 2.16.840.1.535358.3.579.2.1 96 1962 Unknown [id number] 2.16.840.1.972845.3.579.2.1 96 1962 Unknown [id number] 2.16.840.1.917324.3.579.2.1 286 1962 Unknown [id number] 2.16.840.1.038630.3.579.2.1 286 1962 Unknown [id number] 2.16.840.1.343697.3.579.2.1 286 1962 Unknown [id number] 2.16.840.1.698610.3.579.2.1 286 1962 Unknown [id number] 2.16.840.1.489807.3.579.2.1 286 1962 Unknown [id number] 2.16.840.1.592444.3.579.2.1 286 1962 Unknown [id number] 2.16.840.1.157370.3.579.2.1 286 1962 Unknown [id number] 2.16.840.1.282521.3.579.2.1 286 1962 Unknown [id number] 2.16.840.1.002911.3.579.2.1 286 1962 Unknown [id number] 2.16.840.1.587033.3.579.2.1 286 1962 Unknown [id number] 2.16.840.1.531004.3.579.2.1 286 1962 Unknown [id number] 2.16.840.1.376596.3.579.2.1 286 1962 Unknown [id number] 2.16.840.1.509517.3.579.2.1 286 1962 Unknown [id number] 2.16.840.1.756096.3.579.2.1 286 1962 Unknown [id number] 2.16.840.1.905026.3.579.2.1 286 1962 Unknown [id number] 2.16.840.1.343472.3.579.2.1 286 1962 Unknown [id number] 2.16.840.1.575931.3.579.2.1 286 Medicaid Medicaid Out of State [id number] Medicare [id number] 2.840.1.372696.19 Medicare [id number] Unknown [id number] 2.16840.1.188078.3.579.2.5 31 Unknown [id number] 2.16840.1.247526.3.579.2.5 31 Social History Date Type Detail Facility Start: 09-25-1981 End: 09-25-2021 Tobacco smoking status WYIS Smoker (finding) [facility] Start: 1960 Sex Assigned At Female [facility] Start: 07-25-2023 End: 01-22-2024 Sex Assigned At [facility] Start: 09-24-2023 End: 01-22-2024 Tobacco smoking status NHIS Ex-smoker [facility] Start: 09-25-1981 End: 09-25-2021 History of tobacco use Cigarette Smoker [facility] Start: 01-22-2024 End: 09-21-2024 Tobacco use and exposure Former smokeless tobacco user [facility] Start: 01-22-2024 End: 11-28-2024 Alcoholic beverage intake Ex-drinker (finding) [facility] Start: 07-25-2023 End: 01-22-2024 History of Social function [facility] Start: 1960 Sex assigned at Not on file [facility] Start: 09-25-1981 End: 03-17-2024 Tobacco smoking status WYIS Smokes tobacco daily [facility] Start: 08-11-2023 End: 09-24-2023 Tobacco use and exposure Smokeless tobacco non-user [facility] Has the [employer], [employer], or [employer] threatened to shut off services in your home in past 12Mo No [facility] Are you now , , , , never or living with a partner? [facility] How often to you hav e a drink containing alcohol? Never [facility] How many standard drinks containing alcohol do you have on a typical day? Patient does not drink [facility] How hard is it for y ou to pay for the very basics like food, housing, medical care, and heating Somewhat hard [facility] Do you feel stress - tense, restless, nervous, or anxious, or unable to sleep at night because your mind is troubled all the time - these days [OSQ] Only a little [facility] Start: 02-13-2022 Tobacco Comment 5-6 cigerettes a day [facility] Start: 07-25-2023 Alcohol Comment last use 15 years ago [facility] Start: 02-16-2017 Sex Female (finding) [facility] Start: 09-03-2020 Gender identity Identifies as female gender (finding) [facility] Start: 03-28-2023 Sexual orientation Heterosexual (finding) [facility] History of tobacco use Chews Tobacco [facility] Start: 04-29-2023 End: 07-01-2023 Alcohol intake Current non-drinker of alcohol (finding) [facility] How hard is it for y ou to pay for the very basics like food, housing, medical care, and heating Not very hard [facility] Medical Equipment Procedure Code Equipment Code Equipment Origin al Text Equipment Identifier Dates Sj obregon 2.75x28 Rx - [id number] FDA Start: 01-09-2020 Sj obregon 2.75x8 Rx - [id number] FDA Start: 01-09-2020 Goals Date Patient Goal Desired Activity /State Personal health goal Comment on above: Formatting of this n ote might be different from the original. Evaluation of progress towards goal: under assessment Personal health goal Comment on above: Formatting of this n ote might be different from the original. Evaluation of progress towards goal: feeling better, monitor for home O2 Personal health goal Comment on above: Formatting of this n ote might be different from the original. Evaluation of progress towards goal: Pt's goal is to go to SNF at discharge for short term rehab. - DEENA LOREDO 04/25/23 3:55 PM Personal health goal Comment on above: Formatting of this n ote might be different from the original. Evaluation of progress towards goal: feeling better Personal health goal Personal health goal Functional Status Date Assessment Result Facility [facility] Clinical Notes 12-11-2022 to 01-25-2025 Telephone Encounter - Fabricio Lange - 01/25/2025 3:36 PM EDTTelephone Encounter - Fabricio Lange - 01/25/2025 3:36 PM EDTPerioperative Nursing Note - Patricia Huertas RN - 01/03/2025 3:50 PM EDT Note Date & Type Note Facility 01-25-2025 Telephone encounter Note Friend meghna Green has gone without Bi-pap x3 days - she said [facility] needs order for Bi-pap w settingsas well as - Reg O2 concentrator, and personal concentrator To [facility] If already sent pls disregard - ty [facility] 01-25-2025 Miscellaneous Notes Friend meghna Green has gone without Bi-pap x3 days - she said [facility] needs order for Bi-pap w settingsas well as - Reg O2 concentrator, and personal concentrator To [facility] If already sent pls disregard - ty documented in this encounter [facility] 01-03-2025 Miscellaneous Notes Preoperative Education Checklist- General Surgery date: 01/04/25 Surgery time: 1000 Arrival time: 0900 1. Bring a photo ID and your insurance card with you the day of surgery. You will check in at the main lobby of the [facility]- registration desk is straight ahead as soon as you walk in. Tell them you are here for surgery. 2. If you have a Living Will/Durable Power of Telescope Operator for Health Care that is not on [...] after you have bathed. 5. NO nail swedish/acrylic on at least one finger. If you are having a hand, wrist or foot surgery then all nail swedish and artificial/acrylic nails must be removed from [...] least 8 hours and marijuana for 24 hours prior to arrival for your surgery. 16. Notify your surgeon if you develop any illness before your surgery. 17. If you are staying overnight, please DO NOT BRING your home medications with you. 18. If you have any questions prior to surgery, please call the [facility] office at [phone], Mon.-Fri. 7 a.m.-3 p.m. Leave a voicemail if needed. Pre-Surgery Instructions: Medication Instructions acetaminophen (TYLENOL) 325 mg tablet Stop taking 0 days prior to procedure albuterol (ACCUNEB) 0.63 mg/3 mL nebulizer solution Take morning of procedure, as needed albuterol (PROVENTIL HFA;VENTOLIN HFA) 90 mcg/actuation inhaler Take dose day before procedure, as needed ARIPiprazole (ABILIFY) 15 mg tablet Stop taking 0 days prior to procedure atorvastatin (LIPITOR) 80 mg tablet Stop taking 0 days prior to procedure ebrhilkyfd-ymkbmmay-tlbzmkuadf (BREZTRI AEROSPHERE) 160-9-4.8 mcg/actuation HFA aerosol inhaler [...] prior to procedure documented in this encounter [facility] 01-03-2025 Nurse Note Preoperative Education Checklist- General Surgery date: 01/04/25 Surgery time: 1000 Arrival time: 0900 1. Bring a photo ID and your insurance card with you the day of surgery. You will check in at the main lobby of the [facility]- registration desk is straight ahead as soon as you walk in. Tell them you are here for surgery. 2. If you have a Living Will/Durable Power of Telescope Operator for Health Care that is not on [...] after you have bathed. 5. NO nail swedish/acrylic on at least one finger. If you are having a hand, wrist or foot surgery then all nail swedish and artificial/acrylic nails must be removed from [...] least 8 hours and marijuana for 24 hours prior to arrival for your surgery. 16. Notify your surgeon if you develop any illness before your surgery. 17. If you are staying overnight, please DO NOT BRING your home medications with you. 18. If you have any questions prior to surgery, please call the Preadmission Testing office at [phone], Mon.-Fri. 7 a.m.-3 p.m. Leave a voicemail if needed. Pre-Surgery Instructions: Medication Instructions acetaminophen (TYLENOL) 325 mg tablet Stop taking 0 days prior to procedure albuterol (ACCUNEB) 0.63 mg/3 mL nebulizer solution Take morning of procedure, as needed albuterol (PROVENTIL HFA;VENTOLIN HFA) 90 mcg/actuation inhaler Take dose day before procedure, as needed ARIPiprazole (ABILIFY) 15 mg tablet Stop taking 0 days prior to procedure atorvastatin (LIPITOR) 80 mg tablet Stop taking 0 days prior to procedure mghxqpivtr-xtcxrkuu-dshpjvusde (BREZTRI AEROSPHERE) 160-9-4.8 mcg/actuation HFA aerosol inhaler [...] Stop taking [facility] 01-03-2025 Telephone encounter Note Pt gets bi-pap machine from [employer] Pt was told that she due for a renewal order for her Bipap, also her condenser Phone number is for [employer] [facility] 01-03-2025 Miscellaneous Notes Pt gets bi-pap machine from [employer] Pt was told that she due for a renewal order for her Bipap, also her condenser Phone number is for [employer] documented in this encounter [facility] 12-19-2024 Miscellaneous Notes Preoperative Education Checklist- General Surgery date: 12/20/24 Surgery time: 1000 Arrival time: 0900 1. Bring a photo ID and your insurance card with you the day of surgery. You will check in at the main lobby of the [facility]- registration desk is straight ahead as soon as you walk in. Tell them you are here for surgery. 2. If you have a Living Will/Durable Power of Telescope Operator for Health Care that is not on [...] after you have bathed. 5. NO nail swedish/acrylic on at least one finger. If you are having a hand, wrist or foot surgery then all nail swedish and artificial/acrylic nails must be removed from [...] least 8 hours and marijuana for 24 hours prior to arrival for your surgery. 16. Notify your surgeon if you develop any illness before your surgery. 17. If you are staying overnight, please DO NOT BRING your home medications with you. 18. If you have any questions prior to surgery, please call the Preadmission Testing office at [phone], Mon.-Fri. 7 a.m.-3 p.m. Leave a voicemail [...] Stop taking 0 days prior to procedure vaasljhsqq-hstqantl-kegnmkodtx (BREZTRI AEROSPHERE) 160-9-4.8 mcg/actuation HFA aerosol inhaler [...] prior to procedure documented in this encounter [facility] 12-19-2024 Nurse Note Preoperative Education Checklist- General Surgery date: 12/20/24 Surgery time: 1000 Arrival time: 0900 1. Bring a photo ID and your insurance card with you the day of surgery. You will check in at the main lobby of the [facility]- registration desk is straight ahead as soon as you walk in. Tell them you are here for surgery. 2. If you have a Living Will/Durable Power of Telescope Operator for Health Care that is not on [...] after you have bathed. 5. NO nail swedish/acrylic on at least one finger. If you are having a hand, wrist or foot surgery then all nail swedish and artificial/acrylic nails must be removed from [...] least 8 hours and marijuana for 24 hours prior to arrival for your surgery. 16. Notify your surgeon if you develop any illness before your surgery. 17. If you are staying overnight, please DO NOT BRING your home medications with you. 18. If you have any questions prior to surgery, please call the Preadmission Testing office at [phone], Mon.-Fri. 7 a.m.-3 p.m. Leave a voicemail [...] Stop taking 0 days prior to procedure riofbxufdn-tdnlridn-rsozaxovhk (BREZTRI AEROSPHERE) 160-9-4.8 mcg/actuation HFA aerosol inhaler [...] Stop taking 0 days prior to procedure [facility] 12-15-2024 History of Presen t illness Narrative Subjective Patient ID: Monet Recinos is a 64 y.o. female. The patient is here today for discharge follow up from hospital. Transition of Care Med Rec completed? Yes Discharged medications: Medications have been reviewed and reconciled with the most recent facility discharge document. HPI The following portions of the patient's history were reviewed and updated as appropriate: allergies, current medications, past family history, past medical history, past social history, past surgical history, problem list, and medication reconciliation was completed including current medication and post discharge medication. Patient has been admitted to [...] Is taking the pantoprazole daily. Was noted to have worsened microcytic anemia while in the hospital. Previous upper GI showed hiatal hernia but no other specific findings. Endocrine: Negative. Genitourinary: Positive for frequency and urgency. Stress incontinence Musculoskeletal: Positive for arthralgias. Skin: Negative. Neurological: Negative. Hematological: Negative. Psychiatric/Behavioral: Positive for decreased concentration. Objective Physical Exam Vitals reviewed. Exam conducted with a senior research project manager present (Friend/POA). Constitutional: General: She is not [...] her CPAP regularly. Continue oxygen regularly. Other issues need to be addressed or followed up as [...] EGD; Future Stage 3a chronic kidney disease ([facility]) -patient now back on torsemide 20 mg [...] peripheral neuropathy, consider use of Qutenza instead of medications because of numerous side effects -this was written down for the patient for her to discuss with her pain management Other orders - torsemide (DEMADEX) 10 mg tablet; Take 3 tablets (30 mg total) by mouth daily. -further recommendations following testing documented in this encounter [facility] 12-08-2024 Miscellaneous Notes Transition of Care (*required) *Additional Questions/Concerns Requiring PCP Follow-Up: -Patient has [facility]ACHARY appointment on 12/15/2024 This documentation is being used for Transition of Care purposes: Yes Goal: Patient will demonstrate a safe transition from hospital to home Diagnosis on Discharge: Discharge diagnoses: Principal Problem: Acute on chronic respiratory failure with hypoxia and hypercapnia ([facility]) Active Problems: Bipolar 2 disorder, major depressive episode ([facility]) Stage 3a chronic kidney disease ([facility]) Pulmonary hypertension ([facility]) Discharge Specialty: Other *Name of Discharging Facility: [facility] Date of Facility Discharge: 12/04/24-12/06/2024 Date of Interactive Contact and Name of Hyperbaric Technologist: 12/08/24 0956 Unable to reach patient. LVM [...] concerns *Follow Up Appointments with Providers: Primary: Rajni Cardozo Jr, DO 12/15/24 Specialty: Specialty: Specialty: Review [...] Other Services Utilized/Needed by the Patient: NA Message noted. documented in this encounter [facility] 12-08-2024 Telephone encounter Note Transition of Care (*required) *Additional Questions/Concerns Requiring PCP Follow-Up: -Patient has ZACHARY appointment on 12/15/2024 This documentation is being used for Transition of Care purposes: Yes Goal: Patient will demonstrate a safe transition from hospital to home Diagnosis on Discharge: Discharge diagnoses: Principal Problem: Acute on chronic respiratory failure with hypoxia and hypercapnia ([facility]) Active Problems: Bipolar 2 disorder, major depressive episode ([facility]) Stage 3a chronic kidney disease ([facility]) Pulmonary hypertension ([facility]) Discharge Specialty: Other *Name of Discharging Facility: [facility] Date of Facility Discharge: 12/04/24-12/06/2024 Date of Interactive Contact and Name of Hyperbaric Technologist: 12/08/24 0956 Unable to reach patient. M 12/08/24 12:18 pm Spoke to patient *Medication Review Completed: No START taking: guaiFENesin (MUCINEX) predniSONE (DELTASONE) CHANGE how you take: hydrOXYzine (ATARAX) pregabalin (LYRICA) STOP taking: torsemide 20 mg tablet (DEMADEX) Medication Reconciliation Questions/Concerns: -Reviewed discharge changes to medications -Declines medications review -Patient picked up medications and started taking as prescribed -Denies questions or concerns *Follow Up Appointments with Providers: Primary: Rajni Cardozo Jr, DO 12/15/24 Specialty: Specialty: Specialty: Review of Pending Lab/Diagnostic Tests and Plan for Completion: MISTI Assessment and Support of Treatment Regimen Adherence [...] Other Services Utilized/Needed by the Patient: NA [facility] 12-08-2024 Telephone encounter Note Message noted. [facility] 11-30-2024 Miscellaneous Notes ----- Message from PRAKASH Espinosa sent at 11/30/2024 11:52 AM EDT ----- Have her repeat labs again next week ----- Message ----- From: Kacey Sims RN Sent: 11/30/2024 8:28 AM EDT To: PRAKASH Linares Seen Thursday in [facility], restarted torsemide and you wanted labs in 1 week. She completed the next day. ----- Message ----- From: Lab, Background User Sent: 11/29/2024 7:25 PM EDT To: [facility] Clinical Staff documented in this encounter [facility] 11-30-2024 Telephone encounter Note ----- Message from PRAKASH Espinosa sent at 11/30/2024 11:52 AM EDT ----- Have her repeat labs again next week ----- Message ----- From: Kacey Sims RN Sent: 11/30/2024 8:28 AM EDT To: PRAKASH Linares Seen Thursday in [facility], restarted torsemide and you wanted labs in 1 week. She completed the next day. ----- Message ----- From: Lab, Background User Sent: 11/29/2024 7:25 PM EDT To: [facility] Clinical Staff [facility] 11-28-2024 History of Presen t illness Narrative Images from the original note were not included. [facility] Patient: Monet Recinos Date of : 1960 Age: 64 y.o. Date of Encounter: 11/28/2024 REASON FOR VISIT: Chronic heart failure. Dear Rajni Cardozo Jr, & Rajni Cardozo, We had the pleasure of seeing your patient, Monet Recinos, in the [facility] on 11/28/2024. Ms. Recinos is a 64 y.o. female whom we are seeing as a routine follow visit for her history of chronic heart failure due with preserved ejection fraction. She has a history of coronary artery disease status post CABG x4 in July 2020 with THOMPSON to LAD, SVG to PDA/OM, SVG to diagonal 1/2. Her LV function has ranged 55-60% with moderate pulmonary hypertension with RVSP 40-45 mmHg. Additional history includes chronic hypoxic and hypercapnic respiratory failure, COVID, hypertension, hyperlipidemia, obesity, COPD, obstructive sleep apnea/on BiPAP, bipolar disorder, former tobacco use SUBJECTIVE Subjective HPI Ms. Recinos was last seen in the Heart failure Clinic in July 2023 and no medication changes were made at that time. Then in September 2023 her creatinine had increased to 1.85 and primary medicine discontinued her torsemide. Most recently was noted to have lower extremity swelling so primary care put her on Lasix 40 mg for several days. Patient presents today for routine follow-up. She reports she had lost 40 lb last year but over the last 2 months has gained 50 lb. She reports feeling abdominal bloating, orthopnea, exertional dyspnea, PND, and lower extremity swelling. She presented today in a wheelchair as she can not walk very far distance without heart failure symptoms. She is using her CPAP at nighttime but still has persistent fatigue. Her mother is with her today and reports that she has high heart rates that have been ongoing in her blood pressures have been stable. Recently seen by primary cardiology and medications were adjusted for her cholesterol. Unfortunately she is back to smoking again as she had quit for several months. She does have history of depression in her father which prompted her restarting smoking. Heart failure medications include Jardiance 10 mg daily, spironolactone 25 mg daily Cardiac Testing: TTE 02/2023: EF 55-60%, moderate TR, RVSP 40-45 mmHg, LVIDd 4.8 cm TTE 2021: EF 55-60% moderate TR RVSP 42 mmHg LHC 2020: Severe ostial left main, moderate OM, severe ostial PDA, severe ostial 2nd diagonal, LVEDP 21 TTE 2019: EF 40-45% Social history: Current tobacco abuse, no alcohol REVIEW OF SYSTEMS Review of Systems Constitutional: Positive for malaise/fatigue and weight gain. Cardiovascular: Positive for dyspnea on exertion, leg swelling, orthopnea, palpitations and paroxysmal nocturnal dyspnea. Respiratory: Positive for shortness of breath. Gastrointestinal: Positive for bloating. Psychiatric/Behavioral: Positive for depression. The patient is nervous/anxious. All other systems reviewed and are negative. CURRENT MEDICATIONS: Her medications were reviewed and reconciled in the electronic medical record. Current Outpatient Medications Medication Sig Dispense Refill acetaminophen (TYLENOL) 325 mg tablet Take 2 tablets (650 mg total) by mouth every 4 (four) hours as needed for pain or headaches. 30 tablet 0 albuterol (ACCUNEB) 0.63 mg/3 mL nebulizer solution Inhale 3 mL (0.63 mg total) by nebulization every 6 (six) hours as needed for wheezing. albuterol (PROVENTIL HFA;VENTOLIN HFA) 90 mcg/actuation inhaler ARIPiprazole (ABILIFY) 15 mg tablet atorvastatin (LIPITOR) 80 mg tablet Take 1 tablet (80 mg total) by mouth in the morning. 90 tablet 3 nlfrzzuthm-zrtzopjj-bmlcgqpohh (BREZTRI AEROSPHERE) 160-9-4.8 mcg/actuation HFA aerosol inhaler Inhale 2 puffs in the morning and 2 puffs before bedtime. 10.7 g 10 celecoxib (CeleBREX) 200 mg capsule Take 1 capsule (200 mg total) by mouth in the morning. 30 capsule 2 cholecalciferol, vitamin D3, 5,000 units tablet Take 2 tablets (10,000 Units total) by mouth in the morning. clonazePAM (KlonoPIN) 0.5 mg tablet cyanocobalamin 1000 MCG tablet doxepin (SINEquan) 75 mg capsule empagliflozin (JARDIANCE) 10 mg tablet tablet Take 1 tablet (10 mg total) by mouth in the morning. TAKE 1 TABLET (10 MG TOTAL) BY MOUTH IN THE MORNING. 90 tablet 1 ezetimibe (ZETIA) 10 mg tablet Take 1 tablet (10 mg total) by mouth in the morning. 90 tablet 1 hydrOXYzine (ATARAX) 25 mg tablet Take 1 tablet (25 mg total) by mouth. lamoTRIgine (LaMICtal) 150 mg tablet oxygen Inhale 2 L/min continuously. pantoprazole (PROTONIX) 40 mg EC tablet Take 1 tablet (40 mg total) by mouth every morning before breakfast. 90 tablet 0 pregabalin (LYRICA) 100 mg capsule TAKE 1 CAPSULE BY MOUTH IN THE MORNING AND BEFORE BEDTIME 60 capsule 0 spironolactone (ALDACTONE) 25 mg tablet Take 1 tablet (25 mg total) by mouth in the morning. 90 tablet 0 TRINTELLIX 10 mg tablet Take 1 tablet (10 mg total) by mouth. metoprolol succinate XL (TOPROL XL) 25 mg 24 hr tablet Take 1 tablet (25 mg total) by mouth nightly. 30 tablet 11 torsemide (DEMADEX) 20 mg tablet Take 3 tablets (60 mg total) by mouth daily. Take 3 tablets daily. May take take an additional tablet as needed for swelling 300 tablet 3 No current facility-administered medications for this visit. ALLERGIES Allergies Allergen Reactions Penicillins Anaphylaxis Other Reaction(s): Swelling of Lip/Tongue/Throat Morphine Other (See Comments) I hallucinate This is not a true allergy Ms. Recinos's past medical, social and family history were reviewed in the electronic medical record and have noted no changes. OBJECTIVE Objective VITAL SIGNS BP 126/74 Pulse 96 Ht 175.3 cm (5' 9 ) Wt 116.6 kg (257 lb 1.6 oz) SpO2 92% BMI 37.97 kg/m Last 3 Weight Readings 11/28/24 1357 Weight: 116.6 kg (257 lb 1.6 oz) Body mass index is 37.97 kg/m . No data recorded Supplemental O2: LAST 3 RECORDED WEIGHTS Last 3 Weight Readings 11/28/24 1357 Weight: 116.6 kg (257 lb 1.6 oz) Body mass index is 37.97 kg/m . PHYSICAL EXAM General appearance: Alert and oriented, in no acute distress Head: Normocephalic, without obvious abnormality, atraumatic Eyes: Conjunctivae/corneas clear, no scleral icterus Endocrine: No visible thyromegaly Neck: JVD - 8 cm above sternal notch, no adenopathy, no carotid bruit, and thyroid: not enlarged Lungs:Clear to auscultation bilaterally Heart: Brisk carotid upstrokes bilaterally without bruits. Estimated CVP is 11-15 cmH2O. Negative HJR. Regular rhythm with a normal S1 and S2. No S3, S4 or murmurs. Warm and well-perfused. Brisk capillary refill. Abdomen: Bowel sounds are present. The abdomen is soft, not tender or distended. No hepatomegaly. Extremities: edema 2+ pitting with venous stasis Skin: Skin color, turgor normal, no rashes Neurologic: Alert and normally oriented. No gross sensory or motor deficitis. LAB DATA: Ms. Recinos's most recent labs available in the medical record were reviewed today. Lab Results Component Value Date WBC 9.1 10/27/2024 WBC 11 (H) 04/14/2023 Hemoglobin 10.0 (L) 10/27/2024 HEMOGLOBIN A1C 6.3 (H) 10/27/2024 Platelet Count 334 10/27/2024 Lab Results Component Value Date SODIUM 143 10/27/2024 POTASSIUM 4.4 10/27/2024 Chloride 105 07/07/2024 CHLORIDE 102 10/27/2024 BLOOD UREA NITROGEN 19 10/27/2024 Creatinine 1.14 (H) 07/07/2024 CREATININE 1.27 (H) 10/27/2024 GLUCOSE 114 (H) 10/27/2024 Urine glucose JYOTI 250 (A) 12/17/2023 Glucose, Ur 250 (A) 04/14/2023 Magnesium 2.2 12/17/2023 Lab Results Component Value Date BNP 291 (H) 12/17/2023 Troponin I 0.01 07/25/2023 1 Hour Trop I, High Sensitivity 4 12/17/2023 Troponin I, High Sensitivity 4 12/17/2023 Lab Results Component Value Date Inr 1.3 (H) 09/18/2023 CARDIAC TESTING:. See above ASSESSMENT HEART FAILURE SYNOPSIS: Type of Heart Failure: diastolic Last EF: 55-60% QRS Interval: 94ms NYHA Class: III 6-Minute Walk Test: N/A ACC/AHA Stage: C Cardiac Device: None Prior HF Hospitalizations: None Estimated Dry Weight: TBD Today's Visit Weight: Weight: 116.6 kg (257 lb 1.6 oz) 1. Chronic diastolic heart failure with preserved ejection fraction, NYHA 3, class C 2. Moderate tricuspid valve regurgitation and pulmonary hypertension with RVSP 42 mm per mercury 11/15 TTE 3. [place]am coronary ASCVD status post CABG x4 08/15 without current anginal complaints 4. Primary Hypertension 5. COPD with former tobacco use 6. Obstructive sleep apnea just prescribed BiPAP 7. Obesity 8. Bipolar disorder on lithium 9. Former tobacco abuse quitting 2020 PLAN Ms. Recinos presents today describing class 3 heart failure symptoms. She is hypervolemic on exam. She has been off of diuretics and has had significant weight increase. She has pitting edema and JVD. Restart torsemide. She is to take 60 mg every day. She is tachycardic on exam and has a history of high heart rates therefore will start her on Toprol 25 mg at nighttime Get blood work in one-week Weight loss and smoking cessation discussed in detail. Discuss with primary medicine elevated hemoglobin A1c Follow-up in 3 months. At that time may need to consider referral to MTM for weight loss management Guideline-Directed Medical Therapy Beta Georgi: Starting Toprol 25mg daily ACEi / ARB / ARNi: not on MRA: Spirolactone 25 mg daily SGLT-2i: Jardiance 10 mg daily Diuretics Starting Torsemide 60mg daily Plan New Orders Orders Placed This Encounter Procedures Basic Metabolic Panel Echo complete W/O contrast Orders Placed or Reconciled This Encounter Medications oxygen Sig: Inhale 2 L/min continuously. torsemide (DEMADEX) 20 mg tablet Sig: Take 3 tablets (60 mg total) by mouth daily. Take 3 tablets daily. May take take an additional tablet as needed for swelling Dispense: 300 tablet Refill: 3 metoprolol succinate XL (TOPROL XL) 25 mg 24 hr tablet Sig: Take 1 tablet (25 mg total) by mouth nightly. Dispense: 30 tablet Refill: 11 Medications Discontinued During This Encounter Medication Reason furosemide (LASIX) 40 mg tablet We reviewed education for heart failure self-care including daily weights, dietary sodium and fluid restriction, and medication compliance. Ms. Recinos was asked to contact our office with any weight gain or loss that exceeds more than 2 lb overnight or more than 4 lb over one week. We will arrange for a follow-up visit in 3 months. Ms. Recinos is aware that we can be contacted prior to the next scheduled appointment should the need arise. I spent 30 minutes face to face with the patient today and more than 50% of my time was dedicated to counseling (heart failure education for self-care including medication compliance, daily weights, sodium and fluid diet restriction, frequent exercise, cardiovascular risk factor modification) and coordination of care. 11/28/2024 Odessa Cook CNP Advanced [facility] Failure [facility] This note was completed using a voice daily sales audit clerk system. Every effort was made to ensure accuracy. However, inadvertent computerized daily sales audit clerk errors may be present. PRAKASH Linares 11/28/24 1444 Instructed patient on daily weights, fluid restriction, and low sodium diet. Advised of s/s requiring ER treatment or to call the office. Heart failure education provided: No. Patient verbalized understanding. Pt scheduled for echo while in office. Instructions reviewed with pt. documented in this encounter [facility] 11-28-2024 Instructions PRAKASH Linares - 11/28/2024 2:00 PM EDT My recommendations for you in clinic today are as follows: Start Torsemide 60mg daily(The tablets are 20mg. Take 3 tablets) Start Metoprolol /Toprol 25mg at night time Labs in one week Discuss HgB A1C Diabetic result with primary physician Decrease carb in diet and sugars Increase exercise Additionally: Check your weight every day and write it down in your weight log. Bring your weight log to your next appointment. Make sure your intake of sodium is less than 2000 milligrams (mg) per day. Make sure your intake of fluid is less than 2000 milliliters (ml) per day or approximately 64 fl. oz Take all your medications every day as indicated on the prescription label. Call our office if your weight increases by more than 2 pounds overnight or more than 4 pounds in a week. Call our office if you notice worsening shortness of breath, bloating or swelling. Also call if you feel weak, dizzy or unusually fatigued. Please do not hesitate to contact our office by calling the Heart Failure Clinic at [phone]. Please call 911 for emergencies. documented in this encounter [facility] 11-07-2024 History of Presen t illness Narrative IM PROGRESS NOTE Patient - Monet Recinos [...] persist 2. Stage 3a chronic kidney disease ([facility]) -I reviewed the results of the recent lab testing with the patient. Overall stable to slightly worsened -renal protective strategies reviewed with the patient. Stop Excedrin as above. Continue celecoxib, but this may also need to be evaluated [...] plus pantoprazole, will need to proceed with an EGD - pantoprazole (PROTONIX) 40 mg EC tablet; [...] mg total) by mouth daily. Dispense: 30 tablet; Refill: 2 Subjective 64-year-old female presents for recheck [...] headache. It does relieve the headache, but she is having to use the NSAID. -her kidney [...] it has been an intermittent problem for years . I reviewed old records, and she had a plain film of the x-ray about 9 years ago, which showed minimal arthritis. She does report several injuries where she fell onto the anterior knee over the years. A review of systems was negative except for the following: General: weight gain Psychiatric: concentration difficulties, memory difficulties, and under the treatment of Psychiatry for her bipolar disorder Hematological: Worsened microcytic anemia. Is taking aspirin surreptitiously, in addition to celecoxib Cardiovascular: edema Gastrointestinal: heartburn and hiatal hernia with reflux. Not currently taking her PPI Musculoskeletal: joint pain and noted in the right knee. Exam BP 130/60 (BP Site: Left Arm, BP Postition: Sitting, BP CUFF SIZE: L (13-17 inches)) Pulse 90 Temp 36.9 C (98.4 F) (Oral) Resp 20 Ht 175.3 cm (5' 9.02 ) Wt 124.1 kg (273 lb 9.6 oz) SpO2 92% BMI 40.38 kg/m Physical Exam Vitals reviewed. Exam conducted with a senior research project manager present (Friend/POA). Constitutional: General: She is not [...] in the morning., Disp: 90 tablet, Rfl: 3 vmoxrcxokl-bdrroqmj-gchlmdcrcg (BREZTRI AEROSPHERE) 160-9-4.8 mcg/actuation HFA aerosol inhaler, [...] total) by mouth daily., Disp: 30 tablet, Rfl: 2 pantoprazole (PROTONIX) 40 mg EC tablet, Take [...] DIFFERENTIAL Final Other Testing No results found. Rajni Cardozo DO., [facility] Office: [phone] documented in this encounter [facility] 11-07-2024 Evaluation note Diagnosis Hiatal hernia with GERD- Primary Stage 3a chronic kidney disease (CMS-HCC) Patellar tendinitis of right knee Gastro-esophageal reflux disease without esophagitis Venous insufficiency of both lower extremities documented in this encounter [facility]07-09-2025 NoteFL UGI WITH ESOPHAGUS HISTORY: Nausea and vomiting PROCEDURE: The procedure was performed by Dr. Finn. Following the oral administration of contrast material and effervescent crystals to achieve a double contrast technique, a esophagram and upper GI was performed. 7 fluoroscopic cine runs and 5 fluoroscopic spot images were obtained. Total fluo roscopy time was 1 minute 30 seconds. Reference [...] by Kai Finn MD on 11/02/2024 10:14 [facility] 10-27-2024 History of Present illness Narrative* Rajni Cardozo DO - 10/27/2024 4:15 PM EDT IM PROGRESS NOTE Patient - Monet Dhillon Cool Age - 64 y[facility] 1960 [id number] ASSESSMENT & PLAN 1. Type 2 diabetes mellitus with stage 3a chronic kidney disease, without long- term current use of insulin ([facility]) (Primary) - last A1c 6.5% -goals of treatment reviewed with the patient - repeat A1c to assess efficacy of current treatment. May need to increase Jardiance dose. - may be a good candidate for G LP 1 agent to assist with weight loss as well as preserve kidney function - Comprehensive metabolic panel; Future - Hemoglobin A1c; Future - Hemoglobin A1c - Comprehensive metabolic panel 2. Venous insufficiency of both lower extremities - improved with short course of diuretics and elevation - continue to monitor - discussed importance of sodium restriction during hot weather 3. Chronic heart failure with preserved ejection fraction ([facility]) - GDMT: Aldactone, Jardiance, furosemide - will continue to wean off of propanolol over the next 2 weeks - at that time we can decide on replacement beta-georgi - propranoloL (INDERAL) 40 mg tablet; Take 1 tablet (40 mg total) by mouth in the morning. 4. Stage 3a chronic kidney disease ([facility]) - GFR ranges 45-54 over the past year - renal protective strategies were reviewed with the patient - currently on Jardiance, but could benefit from addition of ARB agent - repeat labs to monitor GFR and electrolyte trends - CBC auto differential; Future - CBC auto differential 5. Nausea and vomiting, unspecified vomiting type - persistent and previously on evaluated problem - has had a cholecystectomy in the past - review of medications show no obvious source for the nausea and vomiting -proceed with upper GI and esophagram -may need EGD If no obvious findings on upper GI - in the meantime, continue pantoprazole 40 mg daily -consider addition of antiemetic - Fluoroscopy upper GI with esophagus; Future 6. Arthritis of left sacroiliac joint - patient with spine and joint discomfort, not currently taking anything for the discomfort -restart Celebrex 200 mg daily -keep follow-up with pain management for planned injections - celecoxib (CeleBREX) 200 mg capsule; Take 1 capsule (200 mg total) by mouth in the morning. Dispense: 30 capsule; Refill: 2 -there is no real role for muscle relaxants. May discontinue Robaxin. Subjective 64-year-old female presents for recheck visit on her leg swelling. About 1 week ago, noticed that she was having increased swelling in both lower extremities. Was usually not present in the morning, but by evening they were swollen up to her thighs. No pain, but overall uncomfortable. - she did elevate her legs to try and help the swelling -she does report that she has been trying to walk more because of weight gain - she has been eating more salty food lately. -she was given a prescription for furosemide 40 mg daily for the past 5 days, which has helped the swelling tremendously. In addition, the patient is here for some repeat lab work. At last visit was supposed to have her diabetic labs checked and it was never ordered. She has not been having any problems with her diabetes that she is aware of. Currently is on Jardiance 10 mg daily. A review of systems was negative except for the following: General: weight gain and Is up about 6 kg. Much of this has been water weight. Psychiatric: concentration difficulties and Has known bipolar disorder. Has been under more stress due to the of her father. Admits to smoking a few cigarettes. Respiratory: She is wearing her oxygen, and using her CPAP routinely. Gastrointestinal: Patient says she has been having problems with nausea and occasional vomiting when she eats, especially in the morning. She is taking her pantoprazole 40 mg daily. Unless she takes a dose of Alice-Dustin along with the pantoprazole, she will get nauseated and occasionally vomit. Can be liquid, but can be undigested food. She does have a history of cholecystectomy in the past. Musculoskeletal: joint pain, joint stiffness, and has been noticing this more over the past severalweeks. Has been trying to exercise more. She is scheduled to have AUTUMN of her cervical, thoracic andSI joints at pain management in the next several weeks. Neurological: Previously diagnosed with migraine headaches, and was placed on propanolol. However further review suggest that the headaches are actually cervicogenic. Her propanolol dose has been decreased with no increase in the headaches.. Exam BP 130/84 (BP Site: Left Arm, BP Postition: Sitting, BP CUFF SIZE: L (13-17 inches)) Pulse 77 Temp 36.8 C (98.3 F) (Tympanic) Resp 20 Ht 175.3 cm (5' 9.02 ) Wt 118.3 kg (260 lb 12.8 oz) SpO2 94% BMI 38.50 kg/m Physical Exam Vitals reviewed. Exam conducted with a senior research project manager present (Friend/POA). Constitutional: General: She is not [...] Palpations: Abdomen is soft. Musculoskeletal: General: Tenderness (Tender points noted along the upper border of the trapezius muscle bilaterally. Also along the medial border of the scapula, and along the iliotibial band bilaterally.) present. Cervical back: Tenderness (Bilateral paraspinal muscles extending from occiput to C7) present. Right lower leg: No edema. Left lower leg: No edema. Lymphadenopathy: Cervical: No cervical adenopathy. Skin: General: Skin is warm and dry. Coloration: Skin is not jaundiced. Findings: No bruising. Neurological: Mental Status: She is alert and oriented to person, place, and time. Sensory: No sensory deficit (Intact vibratory sensation bilateral feet and ankles). Gait: Gait (Able to climb onto exam table) normal. Deep Tendon Reflexes: Reflexes are normal [...] in the morning., Disp: 90tablet, Rfl: 3 eymdutavtt-evnvyjxe-plyubnhcoq (BREZTRI AEROSPHERE) 160-9-4.8 mcg/actuation HFA aerosol inhaler, Inhale 2 puffs in the morning and 2 puffs before bedtime., Disp: 10.7 g, Rfl: 10 cholecalciferol, vitamin D3, 5,000 units tablet, Take [...] the morning., Disp: 90 tablet, Rfl: 1 furosemide (LASIX) 40 mg tablet, Take 1 tablet (40 mg total) by mouth daily for 5 days., Disp: 5 tablet, Rfl: 0 hydrOXYzine (ATARAX) 25 mg tablet, Take 1 tablet (25 mg total) by mouth., Disp: , Rfl: lamoTRIgine (LaMICtal) 150 mg tablet, , Disp: , Rfl: pantoprazole (PROTONIX) 40 mg EC tablet, TAKE 1 TABLET BY MOUTH EVERY DAY IN THE MORNING BEFORE BREAKFAST, Disp: 90 tablet, Rfl: 1 pregabalin (LYRICA) 100 mg capsule, TAKE 1 CAPSULE BY MOUTH IN THE MORNING AND 1 CAPSULE BEFORE BEDTIME, Disp: 60 capsule, Rfl: 0 spironolactone (ALDACTONE) 25 mg tablet, Take 1 tablet (25 mg total) by mouth in the morning., Disp: 90 tablet, Rfl: 0 TRINTELLIX 10 mg tablet, Take 1 tablet (10 mg total) by mouth., Disp: , Rfl: celecoxib (CeleBREX) 200 mg capsule, Take 1 capsule (200 mg total) by mouth in the morning., Disp: 30 capsule, Rfl: 2 propranoloL (INDERAL) 40 mg tablet, Take 1 tablet (40 mg total) by mouth in the morning., Disp: , Rfl: Lab Results No visits with results within 1 Month(s) from this visit. Latest known visit with results is: Hospital Outpatient Visit on 07/07/2024 Component Date Value Ref Range Status Vitamin B-12 07/07/2024 1,244 (H) 180 - 914 pg/mL Final Cholesterol 07/07/2024 188 150 - 200 mg/dL Final Triglycerides 07/07/2024 185 (H) 27 - 150 mg/dL Final HDL Cholesterol 07/07/2024 33 (L) >39 mg/dL Final VLDL 07/07/2024 37 (H) 0 - 30 mg/dL Final LDL (calc) 07/07/2024 118 <130 mg/dL Final Cholesterol:HDL Ratio 07/07/2024 5.7 (H) 1.0 - 5.0 Final Hemoglobin A1C 07/07/2024 6.5 (H) 4.4 - 5.6 % Final Average glucose 07/07/2024 140 mg/dL Final Sodium 07/07/2024 140 134 - 146 mmol/L Final Potassium, Bld 07/07/2024 3.9 3.5 - 5.0 mmol/L Final Chloride 07/07/2024 105 98 - 109 mmol/L Final CO2 07/07/2024 25 22 - 32 mmol/L Final Anion gap 07/07/2024 10 5 - 15 mmol/L Final BUN 07/07/2024 11 5 - 27 mg/dL Final Creatinine 07/07/2024 1.14 (H) 0.40 - 1.00 mg/dL Final Glucose 07/07/2024 144 (H) 65 - 99 mg/dL Final Calcium 07/07/2024 9.6 8.5 - 10.5 mg/dL Final Total Protein 07/07/2024 7.5 6.0 - 8.0 g/dL Final Albumin 07/07/2024 4.1 3.2 - 5.3 g/dL Final Alkaline Phosphatase 07/07/2024 106 39 - 130 U/L Final AST 07/07/2024 30 0 - 41 U/L Final ALT 07/07/2024 30 0 - 31 U/L Final Total bilirubin 07/07/2024 0.3 0.3 - 1.2 mg/dL Final eGFR (CKD-EPI)non-race dependent 07/07/2024 54 (L) >59 ml/min/1.73sq.m Final White Blood Cells 07/07/2024 9.3 4.0 - 11.0 X10E9/L Final RBC count 07/07/2024 5.09 3.80 - 5.20 X10E12/L Final Hemoglobin 07/07/2024 11.7 11.7 - 15.5 g/dL Final Hematocrit 07/07/2024 37.2 35 - 47 % Final MCV 07/07/2024 73 (L) 80 - 100 fL Final MCH 07/07/2024 23.0 (L) 27 - 34 pg Final MCHC 07/07/2024 31.4 (L) 32 - 36 g/dL Final RDW 07/07/2024 20.7 (H) 11.5 - 15.0 % Final Platelets 07/07/2024 396 150 - 450 X10E9/L Final MPV 07/07/2024 8.2 7 - 12 fL Final % neutrophils 07/07/2024 76.6 % Final % lymphocytes 07/07/2024 17.6 % Final % monocytes 07/07/2024 4.2 % Final % eosinophils 07/07/2024 1.0 % Final % Basophils 07/07/2024 0.6 % Final Neutrophils Absolute (A) 07/07/2024 7.1 (H) 1.5 - 6.6 X10E9/L Final Lymphocytes Absolute 07/07/2024 1.6 1.0 - 3.5 X10E9/L Final Monocytes Absolute 07/07/2024 0.4 0 - 0.9 X10E9/L Final Eosinophils Absolute 07/07/2024 0.1 0.0 - 0.4 X10E9/L Final Basophils Absolute 07/07/2024 0.1 0.0 - 0.2 X10E9/L Final Other Testing No results found. Rajni Cardozo DO., [facility] Office: [phone] [facility] note* Diagnosis Type 2 diabetes mellitus with stage 3a chronic kidney disease, without long-term current use of insulin ([facility])- Primary Venous insufficiency of both lower extremities Chronic heart failure with preserved ejection fraction ([facility]) Stage 3a chronic kidney disease ([facility]) Nausea and vomiting, unspecified vomiting type Arthritis of left sacroiliac joint Cervicogenic headache Headache documented in this encounter [facility]06[facility] History of Present illness Narrative* Rajni Cardozo DO - 10/07/2024 11:30 AM EDT IM PROGRESS NOTE Patient - Monet Recinos Age - 64 y.o. - 1960 ASSESSMENT & PLAN 1. Cervicogenic headache (Primary) -patient previously diagnosed with migraine headache, but current description is inconsistent with that diagnosis -has physical findings and description more consistent with a musculoskeletal/cervicogenic headache -will discontinue topiramate (slow wean over the next month), as well as the propanolol -may use Tylenol, heat and topical liniments for pain relief -referral to PT for neck - Ambulatory referral to Physical Therapy; Future 2. Orthostatic hypotension -BP is at low end of normal, with symptoms when standing -will discontinue propanolol, but will need to wean off slowly over the next month. Initially will drop to 40 mg b.i.d. -continue to monitor blood pressure and make adjustments as needed. 3. Chronic heart failure with preserved ejection fraction ([facility]) -GDMT: Jardiance, propanolol, spironolactone -may need further adjustment to this regimen as we wean off of propanolol. Would do well with ARB agent. - propranoloL (INDERAL) 40 mg tablet; Take 1 tablet (40 mg total) by mouth in the morning and 1 tablet (40 mg total) before bedtime. Dispense: 60 tablet; Refill: 1 4. Fibromyalgia syndrome -currently on pregabalin 100 mg b.i.d. -current control of fibromyalgia symptoms is adequate - The OARRS/MAPPS database was reviewed today and found to be appropriate.No indication of medication diversion, or non compliance. -no changes today, but if not really getting relief with this agent, consider weaning off altogether Subjective 64-year-old female presents for visit because of long-term use of pregabalin for her fibromyalgia. Overall there has been no change in the fibromyalgia. She still feels like she aches all over, usually worse with more activity. -she has had no falls -no joint pain or swelling or instability. -recently had changes made by Psychiatry stopping venlafaxine and switching to Trintelllix -denies any sleepiness, sluggishness, difficulty thinking while taking the pregabalin Patient complains of ongoing headache. Usually bilateral, and noted in the frontal region. Will getconcomitant discomfort in the back of her head and into her neck at the same time. Occasionally will get some nausea associated with this but no vomiting. No visual changes. No aura prior to the headaches. -these headaches were previously diagnosed as migraines, and she was prescribed sumatriptan and propanolol and topiramate -she has been taking all of these medications and they do nothing for the headache -they have been worsened for the past 1.5 months. In the past she would see a chiropractor which would provide temporary relief, but has not been seeing the chiropractor for the past 2 months. -she did have a MRI of her neck approximately 3 years ago, which showed multilevel degenerative changes and facet hypertrophy without canal stenosis or foraminal stenosis Thirdly, the patient has been complaining of lightheaded episodes which occur every time she moves from laying to seated position, or goes from a seated to standing position. Feels off balance and that she could pass out but has not actually done so. Will occur multiple times a day. This is been present for several weeks and has been getting worse. She says her blood pressures at home have generally been around 120 mmHg systolic A review of systems was negative except for the following: General: weight gain Psychiatric: Stable bipolar disorder. Recent med change by Psychiatry ENT: headaches Musculoskeletal: muscle pain and muscular weakness. Exam BP 122/70 (BP Site: Left Arm, BP Postition: Sitting, BP CUFF SIZE: L (13-17 inches)) Pulse 90 Temp 36.6 C (97.9 F) (Oral) Resp 20 Ht 175.3 cm (5' 9.02 ) Wt 111.9 kg (246 lb 9.6 oz) SpO2 97% BMI 36.40 kg/m Physical Exam Vitals reviewed. Exam conducted with a senior research project manager present (Friend/POA). Constitutional: General: She is not in acute distress. Appearance: She is well-developed. She is obese. She is not toxic-appearing. HENT: Head: Normocephalic. Right Ear: Tympanic membrane, ear canal and external ear normal. Left Ear: Tympanic membrane, ear canal and external ear normal. Nose: Nose normal. Mouth/Throat: Mouth: Mucous membranes are moist. Eyes: General: No scleral icterus. Neck: Vascular: No carotid bruit. Comments: ROM: Right rotation 60 Left rotation 45 Extension 20 Flexion 15 Cardiovascular: Rate and Rhythm: Normal rate and regular rhythm. Pulses: Normal pulses. Heart sounds: No murmur heard. No gallop. Comments: Heart tones distant. See orthostatic blood pressure readings Pulmonary: Effort: Pulmonary effort is normal. Breath sounds: No wheezing or rales. Abdominal: Palpations: Abdomen is soft. Musculoskeletal: General: Tenderness (Tender points noted along the upper border of the trapezius muscle bilaterally. Also along the medial border of the scapula, and along the iliotibial band bilaterally.) present. Cervical back: Tenderness (Bilateral paraspinal muscles extending from occiput to C7) present. Right lower leg: No edema. Left lower leg: No edema. Lymphadenopathy: Cervical: No cervical adenopathy. Skin: General: Skin is warm and dry. Coloration: Skin is not jaundiced. Findings: No bruising. Neurological: Mental Status: She is alert and oriented to person, place, and time. Sensory: No sensory deficit (Intact vibratory sensation bilateral feet and ankles). Gait: Gait (Able to climb onto exam table) normal. Deep Tendon Reflexes: Reflexes are normal [...] in the morning., Disp: 90tablet, Rfl: 3 roswetlxhg-mqmciwhr-xwuugiygbx (BREZTRI AEROSPHERE) 160-9-4.8 mcg/actuation HFA aerosol inhaler, Inhale 2 puffs in the morning and 2 puffs before bedtime., Disp: 10.7 g, Rfl: 10 celecoxib (CeleBREX) 200 mg capsule, , Disp: , Rfl: cholecalciferol, vitamin D3, 5,000 units tablet, Take [...] 150 mg tablet, , Disp: , Rfl: methocarbamoL (ROBAXIN) 750 mg tablet, TAKE 1 TABLET BY MOUTH EVERY 12 HOURS FOR 30 DAYS for 30, Disp: , Rfl: pantoprazole (PROTONIX) 40 mg EC tablet, TAKE 1 TABLET BY MOUTH EVERY DAY IN THE MORNING BEFORE BREAKFAST, Disp: 90 tablet, Rfl: 1 pregabalin (LYRICA) 100 mg capsule, TAKE 1 CAPSULE (100 MG TOTAL) BY MOUTH IN THE MORNING AND 1 CAPSULE BEFORE BEDTIME, Disp: 60 capsule, Rfl: 0 spironolactone (ALDACTONE) 25 mg tablet, Take 1 tablet (25 mg total) by mouth in the morning., Disp: 90 tablet, Rfl: 0 diclofenac sodium (VOLTAREN) 1 % gel, APPLY 2 G TOPICALLY IN THE MORNING AT AT NOON IN THE EVENING AND BEFORE BEDTIME (Patient not taking: Reported on 10/07/2024), Disp: 100 g, Rfl: 2 propranoloL (INDERAL) 40 mg tablet, Take 1 tablet (40 mg total) by mouth in the morning and 1 tablet (40 mg total) before bedtime., Disp: 60 tablet, Rfl: 1 SUMAtriptan (IMITREX) 50 mg tablet, , Disp: , Rfl: TRINTELLIX 10 mg tablet, Take 1 tablet (10 mg total) by mouth. (Patient not taking: Reported on 10/07/2024), Disp: , Rfl: venlafaxine XR (EFFEXOR XR) 75 mg 24 hr capsule, , Disp: , Rfl: venlafaxine XR (EFFEXOR-XR) 150 mg 24 hr capsule, Take 225 mg by mouth in the morning., Disp: , Rfl: Lab Results No visits with results within 1 Month(s) from this visit. Latest known visit with results is: Hospital Outpatient Visit on 07/07/2024 Component Date Value Ref Range Status Vitamin B-12 07/07/2024 1,244 (H) 180 - 914 pg/mL Final Cholesterol 07/07/2024 188 150 - 200 mg/dL Final Triglycerides 07/07/2024 185 (H) 27 - 150 mg/dL Final HDL Cholesterol 07/07/2024 33 (L) >39 mg/dL Final VLDL 07/07/2024 37 (H) 0 - 30 mg/dL Final LDL (calc) 07/07/2024 118 <130 mg/dL Final Cholesterol:HDL Ratio 07/07/2024 5.7 (H) 1.0 - 5.0 Final Hemoglobin A1C 07/07/2024 6.5 (H) 4.4 - 5.6 % Final Average glucose 07/07/2024 140 mg/dL Final Sodium 07/07/2024 140 134 - 146 mmol/L Final Potassium, Bld 07/07/2024 3.9 3.5 - 5.0 mmol/L Final Chloride 07/07/2024 105 98 - 109 mmol/L Final CO2 07/07/2024 25 22 - 32 mmol/L Final Anion gap 07/07/2024 10 5 - 15 mmol/L Final BUN 07/07/2024 11 5 - 27 mg/dL Final Creatinine 07/07/2024 1.14 (H) 0.40 - 1.00 mg/dL Final Glucose 07/07/2024 144 (H) 65 - 99 mg/dL Final Calcium 07/07/2024 9.6 8.5 - 10.5 mg/dL Final Total Protein 07/07/2024 7.5 6.0 - 8.0 g/dL Final Albumin 07/07/2024 4.1 3.2 - 5.3 g/dL Final Alkaline Phosphatase 07/07/2024 106 39 - 130 U/L Final AST 07/07/2024 30 0 - 41 U/L Final ALT 07/07/2024 30 0 - 31 U/L Final Total bilirubin 07/07/2024 0.3 0.3 - 1.2 mg/dL Final eGFR (CKD-EPI)non-race dependent 07/07/2024 54 (L) >59 ml/min/1.73sq.m Final White Blood Cells 07/07/2024 9.3 4.0 - 11.0 X10E9/L Final RBC count 07/07/2024 5.09 3.80 - 5.20 X10E12/L Final Hemoglobin 07/07/2024 11.7 11.7 - 15.5 g/dL Final Hematocrit 07/07/2024 37.2 35 - 47 % Final MCV 07/07/2024 73 (L) 80 - 100 fL Final MCH 07/07/2024 23.0 (L) 27 - 34 pg Final MCHC 07/07/2024 31.4 (L) 32 - 36 g/dL Final RDW 07/07/2024 20.7 (H) 11.5 - 15.0 % Final Platelets 07/07/2024 396 150 - 450 X10E9/L Final MPV 07/07/2024 8.2 7 - 12 fL Final % neutrophils 07/07/2024 76.6 % Final % lymphocytes 07/07/2024 17.6 % Final % monocytes 07/07/2024 4.2 % Final % eosinophils 07/07/2024 1.0 % Final % Basophils 07/07/2024 0.6 % Final Neutrophils Absolute (A) 07/07/2024 7.1 (H) 1.5 - 6.6 X10E9/L Final Lymphocytes Absolute 07/07/2024 1.6 1.0 - 3.5 X10E9/L Final Monocytes Absolute 07/07/2024 0.4 0 - 0.9 X10E9/L Final Eosinophils Absolute 07/07/2024 0.1 0.0 - 0.4 X10E9/L Final Basophils Absolute 07/07/2024 0.1 0.0 - 0.2 X10E9/L Final Other Testing No results found. Rajni Cardozo DO., [facility] Office: [phone] documented in this encounterUniversity Hospitals [facility]05-28-2025 History of Present illness Narrative* Sydnie Guerrero DO - 09/21/2024 3:00 PM EDT Images from the original note were not included. Monet Recinos presents today for follow up on COPD and sleep apnea. She was last seen 6 months ago. She states her breathing has been stable with use of Breztri twice daily. She denies any ER visitsor exacerbations of her breathing. She denies any current complaints of chest pain, palpitations, fevers, chills, sweats, or recent unintentional weight changes. She does continue with regular use ofher machine for treatment of her sleep apnea. She does average at least 6 hours per night. She denies any snoring or apneas while using the machine. She denies any other complaints at today's office visit. Since her last office visit she was able to obtain a portable oxygen concentrator. She does continue with regular use of this. She denies any other complaints at this time. Allergies: Allergies Allergen Reactions Penicillins Anaphylaxis Swelling of Lip/Tongue/Throat Morphine Hallucinations Medications: Current Outpatient Medications: acetaminophen (Tylenol) 325 MG tablet, Take 325 mg by mouth every 4 (four) hours if needed for mildpain, Disp: , Rfl: albuterol 0.63 MG/3ML nebulizer solution, Take 0.63 mg by nebulization every 6 (six) hours if needed for wheezing, Disp: , Rfl: ARIPiprazole (Abilify) 15 MG tablet, Take 15 mg by mouth at bedtime, Disp: , Rfl: aspirin 81 MG EC tablet, Take 81 mg by mouth Daily, Disp: , Rfl: atorvastatin (Lipitor) 80 MG tablet, Take 80 mg by mouth Daily, Disp: , Rfl: calcitonin, salmon, (Miacalcin) 200 UNIT/ACT nasal spray, Administer 1 spray into affected nostril(s) in the morning., Disp: , Rfl: celecoxib (CeleBREX) 200 MG capsule, , Disp: , Rfl: cholecalciferol (Vitamin D-3) 125 MCG (5000 UT) capsule, Take 5,000 Units by mouth Daily, Disp: , Rfl: clonazePAM (KlonoPIN) 0.5 MG tablet, Take 0.5 mg by mouth in the morning and 0.5 mg before bedtime., Disp: , Rfl: cyanocobalamin (Vitamin B-12) 1000 MCG tablet, , Disp: , Rfl: cyclobenzaprine (Flexeril) 10 MG tablet, Take 5 mg by mouth as needed in the morning and 5 mg as needed at noon and 5 mg as needed in the evening for muscle spasms., Disp: , Rfl: diclofenac sodium (Voltaren) 1 % gel, Apply 2 g topically in the morning and 2 g in the evening and2 g before bedtime., Disp: , Rfl: doxepin (SINEquan) 75 MG capsule, Take 75 mg by mouth at bedtime, Disp: , Rfl: empagliflozin (Jardiance) 10 MG, Take by mouth, Disp: , Rfl: ezetimibe (Zetia) 10 MG tablet, Take 10 mg by mouth in the morning., Disp: , Rfl: hydrOXYzine HCl (Atarax) 25 MG tablet, Take 25 mg by mouth Daily, Disp: , Rfl: lamoTRIgine (LaMICtal) 150 MG tablet, Take 1 tablet by mouth Daily, Disp: , Rfl: methocarbamol (Robaxin) 750 MG tablet, TAKE 1 TABLET BY MOUTH EVERY 12 HOURS FOR 30 DAYS for 30, Disp: , Rfl: pantoprazole (ProtoNix) 40 MG EC tablet, Take 40 mg by mouth in the morning. Take before meals. Do not crush, chew, or split., Disp: , Rfl: pregabalin (Lyrica) 100 MG capsule, Take 100 mg by mouth in the morning and 100 mg in the evening.,Disp: , Rfl: propranolol XL (Innopran XL) 80 MG 24 hr capsule, Take 80 mg by mouth at bedtime Do not crush, chew, or split., Disp: , Rfl: spironolactone (Aldactone) 25 MG tablet, Take 25 mg by mouth Daily, Disp: , Rfl: SUMAtriptan (Imitrex) 25 MG tablet, Take 25 mg by mouth 1 (one) time if needed for migraine May repeat dose once in 2 hours if no relief. Do not exceed 2 doses in 24 hours., Disp: , Rfl: topiramate (Topamax) 100 MG tablet, TAKE 1 TABLET (100 MG TOTAL) BY MOUTH IN THE MORNING AND AT BEDTIME FOR 90 DAYS., Disp: , Rfl: venlafaxine XR (Effexor XR) 150 MG 24 hr capsule, Take 150 mg by mouth Daily Do not crush or chew.,Disp: , Rfl: venlafaxine XR (Effexor XR) 75 MG 24 hr capsule, Take 75 mg by mouth Daily Do not crush or chew., Disp: , Rfl: albuterol HFA 90 mcg/act inhaler, Inhale 2 puffs every 4 (four) hours if needed for wheezing, Disp:18 g, Rfl: 5 Zpnryyu-Sjbxbknfedv-Ddxoyvdljp (Breztri Aerosphere) 160-9-4.8 MCG/ACT aerosol, Inhale 2 puffs in the morning and 2 puffs before bedtime., Disp: 10.7 g, Rfl: 5 ferrous sulfate 325 (65 Fe) MG tablet, TAKE 1 TABLET BY MOUTH TWICE A DAY FOR 30 DAYS for 30 (Patient not taking: Reported on 09/21/2024), Disp: , Rfl: potassium chloride CR (Klor-Con M20) 20 MEQ ER tablet, Take 20 mEq by mouth Daily Do not crush or chew. (Patient not taking: Reported on 09/21/2024), Disp: , Rfl: torsemide (Demadex) 20 MG tablet, Take 20 mg by mouth Daily (Patient not taking: Reported on 09/21/2024), Disp: , Rfl: Past Medical History: Past Medical History: Diagnosis Date Agoraphobia Angina at rest ([facility]) Anxiety Arthritis of left sacroiliac joint ([facility]) 07/07/2024 BiPAP (biphasic positive airway pressure) dependence Bipolar disorder Breast injury CAD (coronary artery disease) ([facility]) Cervical disc disorder Chronic kidney disease Cigarette nicotine dependence in remission 10/16/2020 Congestive heart failure (CHF) ([facility]) COPD (chronic obstructive pulmonary disease) ([facility]) COVID-19 04/29/2023 Dementia ([facility]) Dependence on other enabling machines and devices 04/29/2023 Depression ([facility]) Difficulty in walking, not elsewhere classified 04/28/2023 Former smoker 09/26/2022 GERD (gastroesophageal reflux disease) Hyperlipidemia ([facility]) 04/29/2023 Liver disease Lumbosacral disc disease Memory loss Myocardial infarction ([facility]) Nicotine dependence 04/29/2023 Obesity with body mass index 30 or greater 05/14/2023 BONY (obstructive sleep apnea) Osteoarthritis Panic disorder ([facility]) Personal history of nicotine dependence 04/29/2023 Pneumonia, unspecified organism 04/29/2023 Polyneuropathy, unspecified 04/29/2023 Presence of aortocoronary bypass graft 04/29/2023 Psoriasis Psoriasis, unspecified 05/02/2023 PTSD (post-traumatic stress disorder) ([facility]) Shortness of breath Solitary pulmonary nodule 04/29/2023 Stage 3a chronic kidney disease (HCC) ([facility]) 07/07/2024 Thoracic disc disease Unspecified dementia, mild, without behavioral disturbance, psychotic disturbance, mood disturbance, and anxiety ([facility]) 04/30/2023 Ventricular tachycardia ([facility]) 09/20/2024 Documented on 08/23/2020 Visual impairment Weakness 05/28/2023 Social History: Social History Tobacco Use Smoking status: Former Current packs/day: 0.00 Types: Cigarettes Quit date: 2021 Years since quittin.4 Smokeless tobacco: Former Substance Use Topics Alcohol use: Not Currently Vitals: BP 141/74 (BP Location: Left arm, Patient Position: Sitting) Pulse 93 Ht 5' 9 Wt 248 lb 9.6 oz SpO2 92% BMI 36.71 kg/m Exam: Heart: regular rate Lungs: clear to auscultation bilaterally, no wheezes/rales/rhonchi, no resp distress Extremities: no edema noted, no visible rashes Neuro: alert, oriented x3 Imaging Reviewed: None Assessment/Plan: Diagnoses and all orders for this visit: Chronic obstructive pulmonary disease, unspecified COPD type (CMS/HCC) - albuterol HFA 90 mcg/act inhaler; Inhale 2 puffs every 4 (four) hours if needed for wheezing - Eqqajaf-Qjolbomiqlu-Ycfpvweblj (Breztri Aerosphere) 160-9-4.8 MCG/ACT aerosol; Inhale 2 puffs in the morning and 2 puffs before bedtime. Chronic respiratory failure with hypoxia and hypercapnia (CMS/HCC) BONY (obstructive sleep apnea) COPD -- at this time her breathing is well controlled with use of Breztri twice daily and albuterolas needed. She did request refills on both Breztri and albuterol. These were sent to the pharmacy for her. She will continue with regular use of these medications and follow here in 6 months time unless needed before then. BONY -- she does continue with regular use of her BiPAP. She does get at least 6 hours per night with use of the machine. She denies any snoring or apneas while using machine. She will continue with regular use of her BiPAP given that she has been benefitting from and tolerating its use. Chronic hypoxic respiratory failure -- she does continue with use of her oxygen as well. Since her last office visit she was able to obtain a POC. She is currently doing well with use of her oxygen and will continue with regular use. Follow up in about 6 months (around 03/24/2025) for BONY, COPD. Sydnie Guerrero DO documented in this encounterExcelsior Springs Medical [id number] History of Present illness Narrative* Myriam Peacock MD - 09/01/2024 11:15 AM EDT Monet Recinos Date of visit: 09/01/2024 Date of : 1960 Age: 64 y.o. Patient Active Problem List Diagnosis NSTEMI (non-ST elevated myocardial infarction) ([facility]) Obesity (BMI 30-39.9) Atherosclerotic heart disease of [place] coronary artery with other forms of angina pectoris Hyperglycemia Cigarette nicotine dependence in remission Depression Liver disease Visual impairment BONY treated with BiPAP Chronic heart failure with preserved ejection fraction ([facility]) Essential hypertension Hx of hyperlipidemia Former smoker Agoraphobia Anxiety Chipped tooth GERD (gastroesophageal reflux disease) Low back pain Osteoarthritis PTSD (post-traumatic stress disorder) Bipolar 2 disorder, major depressive episode ([facility]) Cannabis use disorder, mild, abuse Major depressive disorder Panic disorder Weakness BMI 40.0-44.9, adult ([facility]) Chronic respiratory failure with hypoxia and hypercapnia ([facility]) Closed wedge compression fracture of T6 vertebra with routine healing Arthritis of left sacroiliac joint Chronic obstructive pulmonary disease, unspecified COPD type ([facility]) Stage 3a chronic kidney disease ([facility]) Allergies Allergen Reactions Penicillins Anaphylaxis Other Reaction(s): Swelling of Lip/Tongue/Throat Morphine Other (See Comments) I hallucinate This is not a true allergy Current Outpatient Medications Medication Sig Dispense Refill acetaminophen (TYLENOL) 325 mg tablet Take 2 tablets (650 mg total) by mouth every 4 (four) hours as needed for pain or headaches. 30 tablet 0 albuterol (ACCUNEB) 0.63 mg/3 mL nebulizer solution Inhale 3 mL (0.63 mg total) by nebulization every 6 (six) hours as needed for wheezing. albuterol (PROVENTIL HFA;VENTOLIN HFA) 90 mcg/actuation inhaler ARIPiprazole (ABILIFY) 15 mg tablet atorvastatin (LIPITOR) 80 mg tablet Take 1 tablet (80 mg total) by mouth in the morning. 90 tablet 3 bzruwgvews-seefgkiy-keoidgtrmt (BREZTRI AEROSPHERE) 160-9-4.8 mcg/actuation HFA aerosol inhaler Inhale 2 puffs in the morning and 2 puffs before bedtime. 10.7 g 10 cholecalciferol, vitamin D3, 5,000 units tablet Take 2 tablets (10,000 Units total) by mouth in themorning. clonazePAM (KlonoPIN) 0.5 mg tablet diclofenac sodium (VOLTAREN) 1 % gel APPLY 2 G TOPICALLY IN THE MORNING AT AT NOON IN THE EVENING AND BEFORE BEDTIME 100 g 2 doxepin (SINEquan) 75 mg capsule empagliflozin (JARDIANCE) 10 mg tablet tablet Take 1 tablet (10 mg total) by mouth in the morning. TAKE 1 TABLET (10 MG TOTAL) BY MOUTH IN THE MORNING. 90 tablet 1 ezetimibe (ZETIA) 10 mg tablet Take 1 tablet (10 mg total) by mouth in the morning. 90 tablet 1 lamoTRIgine (LaMICtal) 150 mg tablet pantoprazole (PROTONIX) 40 mg EC tablet TAKE 1 TABLET BY MOUTH EVERY DAY IN THE MORNING BEFORE BREAKFAST 90 tablet 1 pregabalin (LYRICA) 100 mg capsule Take 1 capsule (100 mg total) by mouth in the morning and 1 capsule (100 mg total) before bedtime. 60 capsule 0 propranolol LA (INDERAL LA) 80 mg 24 hr capsule Take 1 capsule (80 mg total) by mouth in the morning. spironolactone (ALDACTONE) 25 mg tablet Take 1 tablet (25 mg total) by mouth in the morning. 90 tablet 0 SUMAtriptan (IMITREX) 50 mg tablet venlafaxine XR (EFFEXOR XR) 75 mg 24 hr capsule venlafaxine XR (EFFEXOR-XR) 150 mg 24 hr capsule Take 225 mg by mouth in the morning. No current facility-administered medications for this visit. Chief Complaint Patient presents with Follow-up EST PT F/U 6 MS L/S TMP History of Present Illness 64-year-old female is here in follow-up, she is accompanied with her sister she is a poor history in her sister gives me most of the history. She has a is random shortness of breath both at rest and with minimal activity for that has been going on for years and did not get worse since last year's she tells me She also has chronic dizziness her blood pressure is controlled today and home logs are between 120and 130 mm Hg systolic and in the 70s diastolic. Her LDL is above goal at 105 Past Medical History: Diagnosis Date Agoraphobia Angina at rest Anxiety BiPAP (biphasic positive airway pressure) dependence Patient states she no longer uses a BIPAP 01/28/23 Bipolar disorder ([facility]) Breast injury CHF (congestive heart failure) ([facility]) Chipped tooth Chronic kidney disease COPD (chronic obstructive pulmonary disease) ([facility]) Coronary artery disease Dementia ([facility]) Depression Diarrhea frequent bouts /involuntary Dizziness Fracture, vertebral, lumbar closed ([facility]) GERD (gastroesophageal reflux disease) Headache History of coronary artery bypass graft 08/14/2020 Liver disease Low back pain Lump or mass in breast Memory loss Myocardial infarction ([facility]) Apr 2009, swith stent placement Obesity BONY treated with BiPAP 07/31/2022 Osteoarthritis Panic disorder Psoriasis PTSD (post-traumatic stress disorder) Pulmonary emboli ([facility]) Rib fracture 09/2023 lt Rotator cuff tear L Shortness of breath Sleep apnea Visual impairment glasses No data recorded No data recorded No data recorded Past Surgical History: Procedure Laterality Date BREAST BIOPSY BREAST CYST EXCISION Cardiac catheterization N/A 01/09/2020 Performed by Yefri Khan MD at [facility] Cardiac catheterization-LV Cors N/A 08/06/2020 Performed by Hazel Painting MD at [facility] SECTION CHOLECYSTECTOMY COLONOSCOPY N/A 04/03/2017 Performed by Jose Beaver MD at [facility] Coronary angiogram and left ventricular gram/pressure N/A 01/09/2020 Performed by Yefri Khan MD at [facility] CORONARY ANGIOPLASTY WITH STENT PLACEMENT CORONARY ARTERY BYPASS GRAFT X4/ THOMPSON/ SVG X3 / RIGHT UPPER LEG OPEN VEIN HARVEST/ LEFT UPPER LEG OPEN VEING HARVEST /GINETTE N/A 08/13/2020 Performed by Leroy Meng MD at [facility] Drug eluting stent left anterior descending N/A 01/09/2020 Performed by Yefri Khan MD at [facility] EXCISION SEROMA LOWER EXTREMITY Left 10/07/2022 Performed by Victor Hugo Vincent DO at [facility] Intravascular ultrasound coronary N/A 08/06/2020 Performed by Hazel Painting MD at [facility] Intravascular ultrasound coronary N/A 01/09/2020 Performed by Yefri Khan MD at [facility] NOTCHARGED/Thrombolysis arterial initial treatment N/A 01/09/2020 Performed by Yefri Khan MD at [facility] TONSILLECTOMY Family History Problem Relation Age of Onset Hypertension Mother Depression Mother Heart failure Mother Alcohol abuse Father Dementia Father Cancer Maternal Grandmother Cervical cancer Maternal Grandmother Breast cancer Neg Hx Social History Socioeconomic History Marital status: Single Spouse name: Not on file Number of children: Not on file Years of education: Not on file Highest education level: Not on file Occupational History Not on file Tobacco Use Smoking status: Former Current packs/day: 0.00 Average packs/day: 1 pack/day for 40.0 years (40.0 ttl pk-yrs) Types: Cigarettes Start date: 09/1981 Quit date: 09/2021 Years since quittin.9 Smokeless tobacco: Never Tobacco comments: 5-6 cigerettes [...] Social Drivers of Health Financial Resource Strain: Medium Risk (03/05/2024) Overall Financial Resource Strain (CARDIA) Difficulty of Paying Living Expenses: Somewhat hard Food Insecurity: No Food Insecurity (07/07/2024) Hunger Screening Food Insecurity - Worry: Never True Food Insecurity - Inability: Never True Transportation Needs: No Transportation Needs (03/05/2024) PRAPARE - Transportation Lack of Transportation (Medical): No Lack of Transportation (Non-Medical): No Physical Activity: Inactive (07/25/2023) Exercise Vital Sign Days of Exercise per Week: 0 days Minutes of Exercise per Session: 0 min Stress: No Stress Concern Present (07/25/2023) [place] [facility] - Occupational Stress Questionnaire Feeling of Stress : Only a little Recent Concern: Stress - Stress Concern Present (07/25/2023) [place] [facility] - Occupational Stress Questionnaire Feeling of Stress : Very much Social Connections: Moderately Isolated (07/25/2023) Social Connection and Isolation Panel [NHANES] Frequency of Communication with Friends and Family: Three times a week Frequency of Social Gatherings with Friends and Family: Three times a week Attends Yarsanism Services: More than 4 times per year Active Member of Clubs or Organizations: No Attends Club or Organization Meetings: Never Marital Status: Interpersonal Safety: Not At Risk (08/28/2023) Humiliation, Afraid, Rape, and Kick questionnaire Fear of Current or Ex-Partner: No Emotionally Abused: No Physically Abused: No Sexually Abused: No Housing Instability: Low Risk (03/05/2024) Housing Instability Housing Instability: No Review of Systems Review of Systems Constitutional: Positive for malaise/fatigue. Negative for decreased appetite. HENT: Negative for nosebleeds. Respiratory: Positive for shortness of breath. Negative for cough and wheezing. Hematologic/Lymphatic: Does not bruise/bleed easily. Musculoskeletal: Positive for joint pain, muscle cramps and muscle weakness. Negative for joint swelling. Gastrointestinal: Positive for nausea. Negative for bloating, abdominal pain, heartburn and vomiting. Neurological: Positive for dizziness, headaches, light-headedness and loss of balance. Psychiatric/Behavioral: Negative for depression. The patient is not nervous/anxious. CARDIOVASCULAR: Please review HPI. Physical Examination General appearance: Alert, oriented and cooperative. In no acute distress. Neck: No JVD, No carotid bruit. Neck supple, trachea midline. Respiratory: Clear to auscultation bilaterally, no use of accessory muscles. Cardiovascular: RRR with normal S1 and S2 with no murmurs. Gastrointestinal: Soft, non-tender. Bowel sounds normal. Musculoskeletal: No peripheral edema. VITAL SIGNS: Ht 175.3 cm (5' 9 ) Wt 112.9 kg (249 lb) BMI 36.77 kg/m No orders of the defined types were placed in this encounter. There are no discontinued medications. IMPRESSIONS/PLAN There are no diagnoses linked to this encounter. CAD s/p CABG x4 THOMPSON-LAD, SVG to PDA, SVG to OM1 and SVG to diagonal on 08/13/2020. PCI to LAD in 2020 for NSTEMI. HFpEF, well compensated Chronic dyspnea stable for years Hyperlipidemia, LDL 118 Combined obstructive and restrictive pattern on PFT; Pulmonary Lingular Nodule 11mm; BONY Tobacco smoker down to 5-6 cigarettes a day , more than 40 pack year smoker history Obesity BMI 35 Bipolar disorder Her dyspnea in chronic and does not sound to be an anginal equivalent and she is well compensated on exam. It occurs mostly at rest. Recommend pulmonology evaluation Add Zetia for goal LDL less than 70 if LDL still above goal consider Repatha Blood pressure controlled TODAYS ORDERS No orders of the defined types were placed in this encounter. FOLLOW UP No follow-ups on file. PCP: Rajni Cardozo Jr, DO Referring Physician: Rajni Cardozo DO [address] [place] [address] documented in this encounterHolden Memorial HospitalTapioca Mobile03-21-2025 Miscellaneous Notes* Telephone Encounter - Ching Gay RN - 07/15/2024 8:20 AM EDT Last OV 02/19/24 Last CMP 07/07/24.slm documented in this encounterUniversity [facility] Telephone encounter Note* Telephone Encounter - Ching Gay RN - 07/15/2024 8:20 AM EDT Last OV 02/19/24 Last CMP 07/07/24.slm [facility]03-13-[facility] History of Present illness Narrative* Rajni Cardozo, DO - 07/07/2024 1:00 PM EDT IM PROGRESS NOTE Patient - Monet Recinos Age - 64 y.o. - 1960 ASSESSMENT & PLAN 1. IFG (impaired fasting glucose) (Primary) -reviewed with the patient -last A1c 5.9%, but has gained weight -repeat A1c to assess current diabetic status - Hemoglobin A1c; Future 2. Chronic obstructive pulmonary disease, unspecified COPD type ([facility]) -COPD GOLD class B -overall stable -continue Breztri 2 puffs b.i.d. with p.r.n. albuterol 3. Stage 3a chronic kidney disease ([facility]) -GFR ranges 44-49 over the past 6 months -renal protective strategies were reviewed with the patient -continue to avoid NSAIDs, gabapentin -repeat electrolytes, kidney function and GFR to assess for improvement or worsening - CBC auto differential; Future - Comprehensive metabolic panel; Future 4. Chronic respiratory failure with hypoxia and hypercapnia ([facility]) -GOLD class B -patient with stationary and portable oxygen at home -I encouraged her to wear the portable oxygen as much as possible. -most desaturations, when she is active, and this is when she needs it the most. 5. Chronic heart failure with preserved ejection fraction ([facility]) -improved -no longer requiring loop diuretic -GDMT includes Jardiance, spironolactone, propanolol LA 6. Bipolar 2 disorder, major depressive episode ([facility]) -sees Psychiatry on a routine basis -current regimen includes venlafaxine, Lamictal, doxepin, clonazepam, aripiprazole 7. BMI 40.0-44.9, adult ([facility]) -ongoing problem which has worsened due to missing some of her medications -given her overall CV risk, may benefit from initiation of GLP 1 treatment 8. Atherosclerotic heart disease of [place] coronary artery with other forms of angina pectoris ([facility]) -currently taking atorvastatin 80 mg daily -most recent LDL 161 mg/dL -repeat lipid panel to assess efficacy of current treatment - Lipid profile; Future 9. B12 deficiency -patient currently on cyanocobalamin 1000 mcg daily -repeat B12 level to assess efficacy of treatment and ongoing need of treatment - Vitamin B12; Future 10. Peripheral polyneuropathy -restart pregabalin for polyneuropathy as well as control of her fibromyalgia - pregabalin (LYRICA) 100 mg capsule; Take 1 capsule (100 mg total) by mouth in the morning and 1 capsule (100 mg total) before bedtime. Dispense: 60 capsule; Refill: 0 11. Arthritis of left sacroiliac joint ([facility]) -overall stable. Has not been to pain management in over 3 months, does not feel like she needs treatment at this time Subjective 64-year-old female presents for recheck visit on multiple medical conditions. Overall, she feels worse. Ran out of her pregabalin, cyclobenzaprine and now has generalized aching and stiffness in her neck, shoulders and hip girdle. -no longer able to exercise and walk like she was 3 months ago. -She knows she has gained weight Patient says that her breathing has been worse. -is not wearing her oxygen continuously. Is only wearing it a few hours a day now. Is unsure why. -she is having problems with her CPAP. The mask is leaking, but was told by her DME she was not duefor a new mask for 6 months. (this was in November of last year. ) As a result, she has not been using her CPAP. -feels much more fatigued and tired. -no changes have been made by Psychiatry in her current regimen. She does not feel that her bipolardisorder has been acting up. -she is no longer on Demadex. No swelling in her ankles or legs are noted. She is not having any orthopnea or palpitations. A review of systems was negative except for the following: General: weight gain Psychiatric: Stable bipolar disorder Cardiovascular: dyspnea on exertion Musculoskeletal: joint stiffness, muscle pain, and muscular weakness. Exam BP 122/70 (BP Site: Left Arm, BP Postition: Sitting) Pulse 97 Temp 36.7 C (98.1 F) (Tympanic) Ht 175.3 cm (5' 9 ) Wt 108.1 kg (238 lb 6.4 oz) SpO2 95% BMI 35.21 kg/m Physical Exam Vitals reviewed. Exam conducted with a senior research project manager present (Friend/POA). Constitutional: General: She is not [...] murmur heard. No gallop. Comments: Heart tones distant Pulmonary: Effort: Pulmonary effort is normal. Breath sounds: No wheezing or rales. Abdominal: Palpations: Abdomen is soft. Musculoskeletal: General: Tenderness (Tender points noted along the upper border of the trapezius muscle bilaterally. Also along the medial border of the scapula, and along the iliotibial band bilaterally.) present. Right lower leg: No edema. Left lower leg: No edema. Lymphadenopathy: Cervical: No cervical adenopathy. Skin: General: Skin is warm and dry. Coloration: Skin is not jaundiced. Findings: No bruising. Neurological: Mental Status: She is alert and oriented to person, place, and time. Sensory: No sensory deficit (Intact vibratory sensation bilateral feet and ankles). Gait: Gait (Able to climb onto exam table) normal. Deep Tendon Reflexes: Reflexes are normal [...] albuterol (PROVENTIL HFA;VENTOLIN HFA) 90 mcg/actuation inhaler, INHALE 2 PUFF BY MOUTH AND INTO THE LUNGS EVERY 4-6 HOURS NEEDED FOR BREATHING ISSUES FOR 17 DAYS for 17, Disp: , Rfl: ARIPiprazole (ABILIFY) 15 mg tablet, TAKE 1 TABLET BY MOUTH EVERYDAY AT BEDTIME, Disp: , Rfl: atorvastatin (LIPITOR) 80 mg tablet, Take 1 tablet (80 mg total) by mouth in the morning., Disp: 90tablet, Rfl: 3 jtpgfsenjg-tjuzxely-nnntacmhnn (BREZTRI AEROSPHERE) 160-9-4.8 mcg/actuation HFA aerosol inhaler, Inhale 2 puffs in the morning and 2 puffs before bedtime., Disp: 10.7 g, Rfl: 10 cholecalciferol, vitamin D3, 5,000 units tablet, Take 2 tablets (10,000 Units total) by mouth in the morning., Disp: , Rfl: clonazePAM (KlonoPIN) 0.5 mg tablet, TAKE 1 TABLET BY MOUTH TWICE A DAY, Disp: , Rfl: cyanocobalamin 1000 MCG tablet, TAKE 1 TABLET (1,000 MCG TOTAL) BY MOUTH IN THE MORNING, Disp: 90 tablet, Rfl: 1 diclofenac sodium (VOLTAREN) 1 % gel, APPLY 2 G TOPICALLY IN THE MORNING AT AT NOON IN THE EVENING AND BEFORE BEDTIME, Disp: 100 g, Rfl: 2 doxepin (SINEquan) 75 mg capsule, 1 capsule at bedtime Orally Once a day, Disp: , Rfl: empagliflozin (JARDIANCE) 10 mg tablet tablet, Take 1 tablet (10 mg total) by mouth in the morning.TAKE 1 TABLET (10 MG TOTAL) BY MOUTH IN THE MORNING., Disp: 90 tablet, Rfl: 0 lamoTRIgine (LaMICtal) 150 mg tablet, TAKE 1 TABLET BY MOUTH EVERY DAY, Disp: , Rfl: pantoprazole (PROTONIX) 40 mg EC tablet, TAKE 1 TABLET BY MOUTH EVERY DAY IN THE MORNING BEFORE BREAKFAST, Disp: 90 tablet, Rfl: 1 spironolactone (ALDACTONE) 25 mg tablet, Take 1 tablet (25 mg total) by mouth in the morning., Disp: 90 tablet, Rfl: 0 SUMAtriptan (IMITREX) 50 mg tablet, TAKE 1 TABLET BY MOUTH NEEDED WAIT AT LEAST 2 HOURS BETWEEN DOSES, Disp: , Rfl: venlafaxine XR (EFFEXOR XR) 75 mg 24 hr capsule, TAKE 1 CAPSULE BY MOUTH EVERY DAY IN THE MORNING, Disp: , Rfl: venlafaxine XR (EFFEXOR-XR) 150 mg 24 hr capsule, Take 225 mg by mouth in the morning., Disp: , Rfl: pregabalin (LYRICA) 100 mg capsule, Take 1 capsule (100 mg total) by mouth in the morning and 1 capsule (100 mg total) before bedtime., Disp: 60 capsule, Rfl: 0 propranolol LA (INDERAL LA) 80 mg 24 hr capsule, Take 1 capsule (80 mg total) by mouth in the morning., Disp: , Rfl: Lab Results No visits with results within 1 Month(s) from this visit. Latest known visit with results is: Hospital Outpatient Visit on 03/07/2024 Component Date Value Ref Range Status Hemoglobin A1C 03/07/2024 5.9 (H) 4.4 - 5.6 % Final Average glucose 03/07/2024 123 mg/dL Final White Blood Cells 03/07/2024 11.0 4.0 - 11.0 X10E9/L Final RBC count 03/07/2024 4.24 3.80 - 5.20 X10E12/L Final Hemoglobin 03/07/2024 9.2 (L) 11.7 - 15.5 g/dL Final Hematocrit 03/07/2024 31.0 (L) 35 - 47 % Final MCV 03/07/2024 73 (L) 80 - 100 fL Final MCH 03/07/2024 21.8 (L) 27 - 34 pg Final MCHC 03/07/2024 29.8 (L) 32 - 36 g/dL Final RDW 03/07/2024 19.2 (H) 11.5 - 15.0 % Final Platelets 03/07/2024 412 150 - 450 X10E9/L Final MPV 03/07/2024 8.0 7 - 12 fL Final % neutrophils 03/07/2024 74.1 % Final % lymphocytes 03/07/2024 19.8 % Final % monocytes 03/07/2024 4.0 % Final % eosinophils 03/07/2024 1.4 % Final % Basophils 03/07/2024 0.7 % Final Neutrophils Absolute (A) 03/07/2024 8.1 (H) 1.5 - 6.6 X10E9/L Final Lymphocytes Absolute 03/07/2024 2.2 1.0 - 3.5 X10E9/L Final Monocytes Absolute 03/07/2024 0.4 0 - 0.9 X10E9/L Final Eosinophils Absolute 03/07/2024 0.2 0.0 - 0.4 X10E9/L Final Basophils Absolute 03/07/2024 0.1 0.0 - 0.2 X10E9/L Final Microalbumin urine 03/07/2024 <0.7 0.0 - 1.9 mg/dL Final Urine creat 03/07/2024 46.22 mg/dL Final Alb/creat ratio 03/07/2024 NOT CALCULATED 0.0 - 30.0 mg/g creat Final Sodium 03/07/2024 138 134 - 146 mmol/L Final Potassium, Bld 03/07/2024 3.6 3.5 - 5.0 mmol/L Final Chloride 03/07/2024 100 98 - 109 mmol/L Final CO2 03/07/2024 32 22 - 32 mmol/L Final Anion gap 03/07/2024 6 5 - 15 mmol/L Final BUN 03/07/2024 21 5 - 27 mg/dL Final Creatinine 03/07/2024 1.26 (H) 0.40 - 1.00 mg/dL Final Glucose 03/07/2024 120 (H) 65 - 99 mg/dL Final Calcium 03/07/2024 9.0 8.5 - 10.5 mg/dL Final Total Protein 03/07/2024 7.3 6.0 - 8.0 g/dL Final Albumin 03/07/2024 4.0 3.2 - 5.3 g/dL Final Alkaline Phosphatase 03/07/2024 94 39 - 130 U/L Final AST 03/07/2024 12 0 - 41 U/L Final ALT 03/07/2024 13 0 - 31 U/L Final Total bilirubin 03/07/2024 0.3 0.3 - 1.2 mg/dL Final eGFR (CKD-EPI)non-race dependent 03/07/2024 49 (L) >59 ml/min/1.73sq.m Final Direct LDL 03/07/2024 161 (H) <130 mg/dL Final Triglycerides 03/07/2024 113 27 - 150 mg/dL Final Other Testing No results found. Rajni Cardozo DO., [facility] Physicians Office: [phone] documented in this encounterThe Surgical Hospital at SouthwoodsTheStreet [facility] [phone] History of Present illness Narrative* Rajni Cardozo DO - 03/29/2024 3:15 PM EST IM PROGRESS NOTE Patient - Monet Recinos Age - 63 y[facility] 1960 [id number] ASSESSMENT & PLAN Video Visit via Real-time Synchronous Audiovisual Provider [facility] [address] [facility] [id number] Patient Location: Patient's home Video Visit Consent Statement: I discussed risks, benefits, and alternatives of a real-time synchronous audiovisual consultation with the patient (and any accompanying persons) including the risks that the patient's personal health details and medical records will be discussed over real-time, synchronous, interactive video/audio/telecommunication technology, the visit will not be recorded withoutthe express consent of both the provider and the patient, and that there are some limitations compared to [id number] evaluations. The patient consented to the presence of additional virtual and/or in-person participants. We elected to proceed. 1. Contusion of lower leg, unspecified laterality, initial encounter (Primary) -superficial bruising or contusion to the lower extremities. Hard to pinpoint exact etiology, but Isuspect this may be related to some trauma from her dog, or that she is inadvertently having some mild trauma because she is much more active. -I reviewed her recent CBC which showed normal hemoglobin and normal platelet count. -may be medication related, so she was advised to stop the salmon calcitonin, and consider stoppingthe Voltaren gel, and remain off aspirin until the bruising resolves. -if symptoms would worsen, will need re-evaluation Subjective 63-year-old female presents for evaluation of bruising on her lower extremities. Is occurring on both lower extremities for about the past 1 week. Does not recall any distinct trauma to the area, andhas not had any falls. She does have a dog who sleeps by her legs at night. -the bruising is painless. Is only noted on the pretibial area, and not on her calves. -patient has not been taking aspirin products on a regular basis for several months, except that she took 3 Excedrin earlier today. -the right leg seems to be slightly worse than the left leg, but only to a small degree. -she overall has been more active than in the past, actually getting 5000 steps a day and recently. -she recently was switch from gabapentin to pregabalin, and also had a SI joint injection, and she says her legs really have no pain at all. She feels like being more active and walking. -she has not tried any specific of treatment for the bruising. A review of systems was negative except for the following: General: Worry that the bruising represents blood clots Dermatological: Bruising. Exam There were no vitals taken for this visit. Physical Exam Exam conducted with a senior research project manager present (Friend/POA). Constitutional: General: She is not in acute distress. Appearance: She is obese. She is not toxic-appearing. HENT: Head: Normocephalic. Eyes: General: No scleral icterus. Skin: Comments: Visualized via cell phone: Some irregular, superficial areas of bruising were noted in the pretibial area and laterally just superior to the lateral malleolus on the left leg. There is trace edema in the ankles bilaterally. Noopen areas or drainage. No erythema. Neurological: Mental Status: She is alert and oriented to person, place, and time. Motor: No weakness. Coordination: Coordination normal. Psychiatric: Mood and Affect: Mood normal. Behavior: [...] albuterol (PROVENTIL HFA;VENTOLIN HFA) 90 mcg/actuation inhaler, INHALE 2 PUFF BY MOUTH AND INTO THE LUNGS EVERY 4-6 HOURS NEEDED FOR BREATHING ISSUES FOR 17 DAYS for 17, Disp: , Rfl: ARIPiprazole (ABILIFY) 15 mg tablet, TAKE 1 TABLET BY MOUTH EVERYDAY AT BEDTIME, Disp: , Rfl: atorvastatin (LIPITOR) 80 mg tablet, TAKE 1 TABLET (80 MG TOTAL) BY MOUTH IN THE MORNING, Disp: 90 tablet, Rfl: 3 ubodaawvbi-bwcdvday-gdwewtakff (BREZTRI AEROSPHERE) 160-9-4.8 mcg/actuation HFA aerosol inhaler, Inhale 2 puffs in the morning and 2 puffs before bedtime., Disp: 10.7 g, Rfl: 10 cholecalciferol, vitamin D3, 5,000 units tablet, Take 2 tablets (10,000 Units total) by mouth in the morning., Disp: , Rfl: clonazePAM (KlonoPIN) 0.5 mg tablet, TAKE 1 TABLET BY MOUTH TWICE A DAY, Disp: , Rfl: cyanocobalamin (vitamin B-12) 1000 MCG tablet, Take 1 tablet (1,000 mcg total) by mouth in the morning., Disp: 90 tablet, Rfl: 1 cyclobenzaprine (FLEXERIL) 10 mg tablet, , Disp: , Rfl: diclofenac sodium (VOLTAREN) 1 % gel, APPLY 2 G TOPICALLY IN THE MORNING AT AT NOON IN THE EVENING AND BEFORE BEDTIME, Disp: 100 g, Rfl: 2 doxepin (SINEquan) 75 mg capsule, 1 capsule at bedtime Orally Once a day, Disp: , Rfl: JARDIANCE 10 mg tablet tablet, TAKE 1 TABLET (10 MG TOTAL) BY MOUTH IN THE MORNING, Disp: 90 tablet, Rfl: 3 lamoTRIgine (LaMICtal) 150 mg tablet, TAKE 1 TABLET BY MOUTH EVERY DAY, Disp: , Rfl: pantoprazole (PROTONIX) 40 mg EC tablet, TAKE 1 TABLET BY MOUTH EVERY DAY IN THE MORNING BEFORE BREAKFAST, Disp: 90 tablet, Rfl: 1 potassium chloride (KLOR-CON M 20) 20 MEQ CR tablet, Take 1 tablet (20 mEq total) by mouth in the morning., Disp: , Rfl: pregabalin (LYRICA) 100 mg capsule, Take 1 capsule (100 mg total) by mouth in the morning and 1 capsule (100 mg total) before bedtime., Disp: 60 capsule, Rfl: 0 propranolol LA (INDERAL LA) 80 mg 24 hr capsule, Take 1 capsule (80 mg total) by mouth in the morning., Disp: , Rfl: spironolactone (ALDACTONE) 25 mg tablet, TAKE 1 TABLET (25 MG TOTAL) BY MOUTH IN THE MORNING, Disp:90 tablet, Rfl: 3 SUMAtriptan (IMITREX) 50 mg tablet, TAKE 1 TABLET BY MOUTH NEEDED WAIT AT LEAST 2 HOURS BETWEEN DOSES, Disp: , Rfl: torsemide (DEMADEX) 20 mg tablet, Take 4 tablets in the AM by mouth daily, Disp: , Rfl: venlafaxine XR (EFFEXOR XR) 75 mg 24 hr capsule, TAKE 1 CAPSULE BY MOUTH EVERY DAY IN THE MORNING, Disp: , Rfl: venlafaxine XR (EFFEXOR-XR) 150 mg 24 hr capsule, Take 225 mg by mouth in the morning., Disp: , Rfl: Lab Results Hospital Outpatient Visit on 03/07/2024 Component Date Value Ref Range Status Hemoglobin A1C 03/07/2024 5.9 (H) 4.4 - 5.6 % Final Average glucose 03/07/2024 123 mg/dL Final White Blood Cells 03/07/2024 11.0 4.0 - 11.0 X10E9/L Final RBC count 03/07/2024 4.24 3.80 - 5.20 X10E12/L Final Hemoglobin 03/07/2024 9.2 (L) 11.7 - 15.5 g/dL Final Hematocrit 03/07/2024 31.0 (L) 35 - 47 % Final MCV 03/07/2024 73 (L) 80 - 100 fL Final MCH 03/07/2024 21.8 (L) 27 - 34 pg Final MCHC 03/07/2024 29.8 (L) 32 - 36 g/dL Final RDW 03/07/2024 19.2 (H) 11.5 - 15.0 % Final Platelets 03/07/2024 412 150 - 450 X10E9/L Final MPV 03/07/2024 8.0 7 - 12 fL Final % neutrophils 03/07/2024 74.1 % Final % lymphocytes 03/07/2024 19.8 % Final % monocytes 03/07/2024 4.0 % Final % eosinophils 03/07/2024 1.4 % Final % Basophils 03/07/2024 0.7 % Final Neutrophils Absolute (A) 03/07/2024 8.1 (H) 1.5 - 6.6 X10E9/L Final Lymphocytes Absolute 03/07/2024 2.2 1.0 - 3.5 X10E9/L Final Monocytes Absolute 03/07/2024 0.4 0 - 0.9 X10E9/L Final Eosinophils Absolute 03/07/2024 0.2 0.0 - 0.4 X10E9/L Final Basophils Absolute 03/07/2024 0.1 0.0 - 0.2 X10E9/L Final Microalbumin urine 03/07/2024 <0.7 0.0 - 1.9 mg/dL Final Urine creat 03/07/2024 46.22 mg/dL Final Alb/creat ratio 03/07/2024 NOT CALCULATED 0.0 - 30.0 mg/g creat Final Sodium 03/07/2024 138 134 - 146 mmol/L Final Potassium, Bld 03/07/2024 3.6 3.5 - 5.0 mmol/L Final Chloride 03/07/2024 100 98 - 109 mmol/L Final CO2 03/07/2024 32 22 - 32 mmol/L Final Anion gap 03/07/2024 6 5 - 15 mmol/L Final BUN 03/07/2024 21 5 - 27 mg/dL Final Creatinine 03/07/2024 1.26 (H) 0.40 - 1.00 mg/dL Final Glucose 03/07/2024 120 (H) 65 - 99 mg/dL Final Calcium 03/07/2024 9.0 8.5 - 10.5 mg/dL Final Total Protein 03/07/2024 7.3 6.0 - 8.0 g/dL Final Albumin 03/07/2024 4.0 3.2 - 5.3 g/dL Final Alkaline Phosphatase 03/07/2024 94 39 - 130 U/L Final AST 03/07/2024 12 0 - 41 U/L Final ALT 03/07/2024 13 0 - 31 U/L Final Total bilirubin 03/07/2024 0.3 0.3 - 1.2 mg/dL Final eGFR (CKD-EPI)non-race dependent 03/07/2024 49 (L) >59 ml/min/1.73sq.m Final Direct LDL 03/07/2024 161 (H) <130 mg/dL Final Triglycerides 03/07/2024 113 27 - 150 mg/dL Final Other Testing No results found. Rajni Cardozo DO., [facility] Office: [phone] documented in this encounterUniversity Hospitals Samaritan Medical Center12-03-2024 Miscellaneous Notes* Telephone Encounter - Monica Johnston CMA - 03/29/2024 9:13 AM EST Pts friend called stated pt is having bursing on her legs for no reason , they would like to know if something to be concerned about or maybe a side effect from the pregabalin ? * Telephone Encounter - Rajni Cardozo DO - 03/29/2024 9:13 AM EST Message noted. What is happening to her legs? * Telephone Encounter - Monica Johnston CMA - 03/29/2024 9:13 AM EST They are brusing , she's not hirting or bumping anything they are just popping up * Telephone Encounter - Rajni Cardozo DO - 03/29/2024 9:13 AM EST Message noted. This is not a side effect from pregabalin. Is she taking aspirin for any reason? * Telephone Encounter - Monica Johnston CMA - 03/29/2024 9:13 AM EST She's not taking any aspirin lately bc she's out . She did take some excedrin today . They started about a week ago. * Telephone Encounter - Monica Johnston CMA - 03/29/2024 9:13 AM EST She is worried they are blood clots , they just want to know if its something to worry about ? Friend also just stated that she is starting to swelling up again * Telephone Encounter - Rajni Cardozo DO - 03/29/2024 9:13 AM EST Message noted. Hard to say without seeing it. We can put her in a slot tomorrow, or try a video visit today documented in this encounterUniversity Hospitals Samaritan Medical Center12-03-2024 Telephone encounter Note* Telephone Encounter - Monica Johnston CMA - 03/29/2024 9:13 AM EST Pts friend called stated pt is having bursing on her legs for no reason , they would like to know if something to be concerned about or maybe a side effect from the pregabalin ? [facility]12-03-2024 Telephone encounter Note* Telephone Encounter - Rajni Cardozo DO - 03/29/2024 9:13 AM EST Message noted. What is happening to her legs? [facility]12-03-2024 Telephone encounter Note* Telephone Encounter - Monica Johnston CMA - 03/29/2024 9:13 AM EST They are brusing , she's not hirting or bumping anything they are just popping up [facility]12-03-2024 Telephone encounter Note* Telephone Encounter - Rajni Cardozo DO - 03/29/2024 9:13 AM EST Message noted. This is not a side effect from pregabalin. Is she taking aspirin for any reason? [facility]12-03-2024 Telephone encounter Note* Telephone Encounter - Monica Johnston CMA - 03/29/2024 9:13 AM EST She's not taking any aspirin lately bc she's out . She did take some excedrin today . They started about a week ago. [facility]12-03-2024 Telephone encounter Note* Telephone Encounter - Monica Johnston CMA - 03/29/2024 9:13 AM EST She is worried they are blood clots , they just want to know if its something to worry about ? Friend also just stated that she is starting to swelling up again [facility]12-03-2024 Telephone encounter Note* Telephone Encounter - Rajni Cardozo DO - 03/29/2024 9:13 AM EST Message noted. Hard to say without seeing it. We can put her in a slot tomorrow, or try a video visit today [id number] History of Present illness Narrative* Sydnie Guerrero, DO - 03/17/2024 1:00 PM EST Images from the original note were not included. Monet Recinos presents today for evaluation in regards to shortness of breath and chronic hypoxic respiratory failure. She is accompanied by her friend at today's office visit. She was referred by her primary care physician's office. She has been on oxygen for approximately 1 year. Her friend states that she was discharged home with this past Easter. She was hospitalized and treated for breathing at that time. She does also have known history of sleep apnea. She has been on CPAP for about 1 year so. She recently had repeat testing as her CPAP machine was removed given that she was not compliant with the machine. She has been started back on BiPAP. She states she has been compliant with this. She has had it for approximately 2 months. She does use this on average 4-5 hours per night. She denies any snoring or apneas while using the machine. She does feel better since using the BiPAP machine. She does note some shortness of breath with exertion, but states overall this is much better since she has been on Breztri. She has been on this medication for last 2-3 years. She does currently use albuterol on an as-needed basis as well. She was discharged home from the hospital with oxygen and was told to use this with exertion. She is interested in a portable oxygen concentrator. She states her primary care provider did try to get this ordered for her, however she states that the [employer] would not accept his testing. She is a current smoker. She is currently working on quitting. She smokes less than half pack per day. She denies any other complaints at today's office visit. Allergies Allergen Reactions Penicillins Anaphylaxis Swelling of Lip/Tongue/Throat Morphine Hallucinations Current Outpatient Medications Medication Sig Dispense Refill acetaminophen (Tylenol) 325 MG tablet Take 325 mg by mouth every 4 (four) hours if needed for mild pain albuterol 0.63 MG/3ML nebulizer solution Take 0.63 mg by nebulization every 6 (six) hours if neededfor wheezing albuterol HFA 90 mcg/act inhaler Inhale 2 puffs every 4 (four) hours if needed for wheezing ARIPiprazole (Abilify) 15 MG tablet Take 15 mg by mouth at bedtime aspirin 81 MG EC tablet Take 81 mg by mouth Daily atorvastatin (Lipitor) 80 MG tablet Take 80 mg by mouth Daily Dnscnoe-Xqbfefeialn-Zsklyrljec (Breztri Aerosphere) 160-9-4.8 MCG/ACT aerosol Inhale calcitonin, salmon, (Miacalcin) 200 UNIT/ACT nasal spray Administer 1 spray into affected nostril(s) in the morning. celecoxib (CeleBREX) 200 MG capsule TAKE 1 CAPSULE BY MOUTH TWICE A DAY NEEDED cholecalciferol (Vitamin D-3) 125 MCG (5000 UT) capsule Take 5,000 Units by mouth Daily clonazePAM (KlonoPIN) 0.5 MG tablet Take 0.5 mg by mouth in the morning and 0.5 mg before bedtime. cyanocobalamin (Vitamin B-12) 1000 MCG tablet TAKE 1 TABLET (1,000 MCG TOTAL) BY MOUTH IN THE MORNING cyclobenzaprine (Flexeril) 10 MG tablet Take 5 mg by mouth 3 (three) times a day as needed for muscle spasms diclofenac sodium (Voltaren) 1 % gel Apply 2 g topically in the morning and 2 g in the evening and 2 g before bedtime. doxepin (SINEquan) 75 MG capsule Take 75 mg by mouth at bedtime empagliflozin (Jardiance) 10 MG Take by mouth hydrOXYzine HCl (Atarax) 25 MG tablet Take 25 mg by mouth Daily lamoTRIgine (LaMICtal) 150 MG tablet Take 1 tablet by mouth Daily pantoprazole (ProtoNix) 40 MG EC tablet Take 40 mg by mouth in the morning. Take before meals. Do not crush, chew, or split.. potassium chloride CR (Klor-Con M20) 20 MEQ ER tablet Take 20 mEq by mouth Daily Do not crush or chew. pregabalin (Lyrica) 100 MG capsule Take 100 mg by mouth in the morning and 100 mg in the evening. propranolol XL (Innopran XL) 80 MG 24 hr capsule Take 80 mg by mouth at bedtime Do not crush, chew,or split. spironolactone (Aldactone) 25 MG tablet Take 25 mg by mouth Daily SUMAtriptan (Imitrex) 25 MG tablet Take 25 mg by mouth 1 (one) time if needed for migraine May repeat dose once in 2 hours if no relief. Do not exceed 2 doses in 24 hours. torsemide (Demadex) 20 MG tablet Take 20 mg by mouth Daily venlafaxine XR (Effexor XR) 150 MG 24 hr capsule Take 150 mg by mouth Daily Do not crush or chew. venlafaxine XR (Effexor XR) 75 MG 24 hr capsule Take 75 mg by mouth Daily Do not crush or chew. No current facility-administered medications for this visit. Past Medical History: Diagnosis Date Agoraphobia ([facility]) Angina at rest ([facility]) Anxiety BiPAP (biphasic positive airway pressure) dependence Bipolar disorder ([facility]) Breast injury CAD (coronary artery disease) ([facility]) Cervical disc disorder Chronic kidney disease Cigarette nicotine dependence in remission 10/16/2020 Congestive heart failure (CHF) ([facility]) COPD (chronic obstructive pulmonary disease) ([facility]) COVID-19 04/29/2023 Dementia ([facility]) Dependence on other enabling machines and devices 04/29/2023 Depression ([facility]) Difficulty in walking, not elsewhere classified 04/28/2023 Former smoker 09/26/2022 GERD (gastroesophageal reflux disease) Liver disease Lumbosacral disc disease Memory loss Myocardial infarction ([facility]) BONY (obstructive sleep apnea) Osteoarthritis Panic disorder ([facility]) Personal history of nicotine dependence 04/29/2023 Pneumonia, unspecified organism 04/29/2023 Polyneuropathy, unspecified 04/29/2023 Presence of aortocoronary bypass graft 04/29/2023 Psoriasis ([facility]) Psoriasis, unspecified ([facility]) 05/02/2023 PTSD (post-traumatic stress disorder) ([facility]) Shortness of breath Solitary pulmonary nodule 04/29/2023 Thoracic disc disease Unspecified dementia, mild, without behavioral disturbance, psychotic disturbance, mood disturbance, and anxiety ([facility]) 04/30/2023 Visual impairment Weakness 05/28/2023 Past Surgical History: Procedure Laterality Date CARDIAC SURGERY 08/14/2020 quadruple bypass CHOLECYSTECTOMY CORONARY ANGIOPLASTY WITH STENT PLACEMENT 01/09/2020 CT ANGIOGRAM HEART CORONARY 04/14/2023 CT ANGIOGRAM TAVR 04/14/2023 CT ANGIOGRAM HEART CORONARY 08/28/2023 CT ANGIOGRAM TAVR 08/28/2023 IR ANGIOGRAM INTRAVASCULAR US Left 08/06/2020 IR ANGIOGRAM INTRAVASCULAR US 08/06/2020 IR ANGIOGRAM INTRAVASCULAR US Left 01/09/2020 IR ANGIOGRAM INTRAVASCULAR US 01/09/2020 Family History Problem Relation Name Age of Onset Heart disease Mother Hyperlipidemia Mother Social History Tobacco Use Smoking status: Former Current packs/day: 0.00 Types: Cigarettes Quit date: 2021 Years since quittin.8 Smokeless tobacco: Former Substance Use Topics Alcohol use: Not Currently BP 115/72 (BP Location: Left arm, Patient Position: Sitting) Pulse (!) 114 Ht 5' 9 Wt 229 lb SpO2 (!) 89% BMI 33.82 kg/m Exam: Heart: regular rate Lungs: clear to auscultation bilaterally, no wheezes/rales/rhonchi, no resp distress Extremities: no edema noted, no visible rashes Neuro: alert, oriented x3 Imaging Reviewed: Images and report of chest x-ray from November 2023 reviewed--no evidence of acute cardiopulmonary process PFT's from June 2023 reviewed--FVC 2.39 L (97 %), FEV1 1.69 L (94 %), ratio 71 %, mid flows 47 %, no significant bronchodilator response, slightly decreased DLCO Testing for home oxygen use reviewed from July 2023--room air saturation 95 % at rest, room air saturation 86 % with exertion, 2 L nasal cannula oxygen saturation with exertion of 95 % Assessment/Plan: COPD -- she states as long as she uses Breztri twice daily and albuterol as needed she does have good control her breathing. She denies any current complaints of increasing shortness of breath at rest with exertion. She does not need refills on her inhaled medications. She will continue with his current regimen and follow here in a few months time. BONY -- she has been using BiPAP for last 2 months or so. She states she does remain compliant with the machine. She does use this on average at least 5-6 hours per night. She denies any snoring or apneas while using the machine. She will continue with regular use of her BiPAP given that she has been benefitting from and tolerating its use. Chronic hypoxic respiratory failure -- she does currently have oxygen at home. She states when she was discharged from the hospital in June she was told to use this with exertion as well as at night. She does currently use this bled into the machine for her BiPAP. I did review her oxygen testing she does need this with exertion. She would like a portable oxygen concentrator to allow her to be more active outside the home. She states at this time she is not able to move outside the home very well given that she does not have any portability to her oxygen. I will send a script for a POC to [facility] today. Tobacco use -- she does continue to smoke on a daily basis. She is currently at a half pack or less. We did have a 4 minute discussion regarding the importance of smoking cessation at today's office visit. Follow up in about 3 months (around 06/17/2024) for COPD, in [place] office. Sydnie Guerrero DO documented in this encounterExcelsior Springs Medical [id number] History of Present illness Narrative* Rajni Cardozo DO - 03/07/2024 1:00 PM EST IM PROGRESS NOTE Patient - Monet Recinos Age - 63 y.o. - 1960 ASSESSMENT & PLAN 1. IFG (impaired fasting glucose) (Primary) -has had previously elevated glucose readings on review of previous lab tests -will check A1c evaluate for previously undiagnosed diabetes. - Hemoglobin A1c; Future - Microalbumin - Albumin: Creatinine Urine Ratio; Future - Comprehensive metabolic panel; Future 2. Peripheral polyneuropathy -abnormal monofilament testing with normal vibratory sensation -the cyanocobalamin appears to be helping, but continues to have burning which would be more likelyattributed to prediabetes/diabetes -increased pregabalin to 100 mg twice daily. We reviewed the rationale in switching to pregabalin gabapentin in order to reduce swelling and stress the kidney. - pregabalin (LYRICA) 100 mg capsule; Take 1 capsule (100 mg total) by mouth in the morning and 1 capsule (100 mg total) before bedtime. Dispense: 60 capsule; Refill: 0 3. Stage 3a chronic kidney disease ([facility]) -GFR ranges from 36 to 53 over the past year. -renal protective strategies were reviewed with patient, in particular avoidance of NSAIDs and Welch 2 inhibitors -we are evaluating and reducing or eliminating all prescription medications which could affect the kidney -continue to monitor. ACR ordered today - CBC auto differential; Future 4. Chronic heart failure with preserved ejection fraction ([facility]) -GDMT: Jardiance 10 mg daily, propanolol 80 mg daily, spironolactone 25 mg daily, torsemide. -continue home oxygen 5. Atherosclerotic heart disease of [place] coronary artery with other forms of angina pectoris ([facility]) -currently atorvastatin 80 mg daily -repeat lipids to assess efficacy of current treatment - LDL cholesterol, direct; Future - Triglyceride; Future Subjective 63-year-old female presents for follow-up multiple medical problems including: -leg edema. This has gotten much better since discontinuing the gabapentin. She can actually see her ankles. She is still Lasix 7 days a week with double-dose 3 days a week. She is on Jardiance, and spironolactone. Unfortunately, the burning and tingling in her legs persists. -for the pain in her back and legs, she was started on topiramate 100 mg twice daily. This is helped her back in overall joint pain, but the tingling burning sensation persists. She was started pregabalin 50 mg twice daily, which helped partially but has not resolved the symptoms. -regardless, she is more active, she is walking for 30-60 minutes almost every day. She is not having to use a walker. She feels like she has more energy. -she is sleeping better. She now has a CPAP device which she is using nightly. She is unable to sleep without it. She has more energy by using it.-she has not had any falls. And has not had any emergency room visits in nearly 2 months. A review of systems was negative except for the following: General: weight loss Psychiatric: anxiety, mood swings, and has known bipolar disorder which is under treatment with Psychiatry Genito-Urinary: urinary frequency/urgency Musculoskeletal: joint pain and joint stiffness Neurological: numbness/tingling and bilateral lower extremities to the mid tibia. Exam BP 102/60 (BP Site: Left Arm, BP Postition: Sitting) Pulse 87 Temp 36.9 C (98.4 F) (Tympanic) Ht 175.3 cm (5' 9 ) Wt 101.2 kg (223 lb) SpO2 93% BMI 32.93 kg/m Physical Exam Vitals reviewed. Exam conducted with a senior research project manager present (Friend/POA). Constitutional: General: She is not in acute distress. Appearance: She is well-developed. She is obese. She is not toxic-appearing. HENT: Head: Normocephalic. Right Ear: External ear normal. Left Ear: External ear normal. Nose: Nose normal. Mouth/Throat: Mouth: Mucous membranes are moist. Eyes: General: No scleral icterus. Neck: Vascular: No carotid bruit. Cardiovascular: Rate and Rhythm: Normal rate. Pulses: Normal pulses. Heart sounds: No murmur heard. Comments: Heart tones distant Pulmonary: Effort: Pulmonary effort is normal. Breath sounds: No wheezing or rales. Abdominal: Palpations: Abdomen is soft. Musculoskeletal: General: No tenderness. Cervical back: Neck supple. Right lower leg: Edema (1+ to above the ankle) present. Left lower leg: Edema (1+ to above the ankle) present. Lymphadenopathy: Cervical: No cervical adenopathy. Skin: General: Skin is warm and dry. Coloration: Skin is not jaundiced. Findings: No bruising. Neurological: Mental Status: She is alert and oriented to person, place, and time. Sensory: Sensory deficit (Intact vibratory sensation bilateral feet and ankles. Abnormal monofilament testing the right and left forefoot.) present. Gait: Gait (Walking without any assistive device. Able to climb onto exam table) normal. Deep Tendon Reflexes: Reflexes are normal [...] albuterol (PROVENTIL HFA;VENTOLIN HFA) 90 mcg/actuation inhaler, INHALE 2 PUFF BY MOUTH AND INTO THE LUNGS EVERY 4-6 HOURS NEEDED FOR BREATHING ISSUES FOR 17 DAYS for 17, Disp: , Rfl: ARIPiprazole (ABILIFY) 15 mg tablet, TAKE 1 TABLET BY MOUTH EVERYDAY AT BEDTIME, Disp: , Rfl: atorvastatin (LIPITOR) 80 mg tablet, TAKE 1 TABLET (80 MG TOTAL) BY MOUTH IN THE MORNING, Disp: 90 tablet, Rfl: 3 hzrunzgzyg-dxcrpefx-fajxfpfomg (BREZTRI AEROSPHERE) 160-9-4.8 mcg/actuation HFA aerosol inhaler, Inhale 2 puffs in the morning and 2 puffs before bedtime., Disp: 10.7 g, Rfl: 10 calcitonin, salmon, (MIACALCIN) 200 unit/actuation nasal spray, Administer 1 spray into alternatingnostrils in the morning., Disp: 3.7 mL, Rfl: 12 cholecalciferol, vitamin D3, 5,000 units tablet, Take 2 tablets (10,000 Units total) by mouth in the morning., Disp: , Rfl: clonazePAM (KlonoPIN) 0.5 mg tablet, TAKE 1 TABLET BY MOUTH TWICE A DAY, Disp: , Rfl: cyanocobalamin (vitamin B-12) 1000 MCG tablet, Take 1 tablet (1,000 mcg total) by mouth in the morning., Disp: 90 tablet, Rfl: 1 cyclobenzaprine (FLEXERIL) 10 mg tablet, , Disp: , Rfl: diclofenac sodium (VOLTAREN) 1 % gel, APPLY 2 G TOPICALLY IN THE MORNING AT AT NOON IN THE EVENING AND BEFORE BEDTIME, Disp: 100 g, Rfl: 2 doxepin (SINEquan) 75 mg capsule, 1 capsule at bedtime Orally Once a day, Disp: , Rfl: JARDIANCE 10 mg tablet tablet, TAKE 1 TABLET (10 MG TOTAL) BY MOUTH IN THE MORNING, Disp: 90 tablet, Rfl: 3 lamoTRIgine (LaMICtal) 150 mg tablet, TAKE 1 TABLET BY MOUTH EVERY DAY, Disp: , Rfl: pantoprazole (PROTONIX) 40 mg EC tablet, Take 1 tablet (40 mg total) by mouth every morning before breakfast., Disp: 90 tablet, Rfl: 1 potassium chloride (KLOR-CON M 20) 20 MEQ CR tablet, Take 1 tablet (20 mEq total) by mouth in the morning., Disp: , Rfl: propranolol LA (INDERAL LA) 80 mg 24 hr capsule, Take 1 capsule (80 mg total) by mouth in the morning., Disp: , Rfl: spironolactone (ALDACTONE) 25 mg tablet, TAKE 1 TABLET (25 MG TOTAL) BY MOUTH IN THE MORNING, Disp:90 tablet, Rfl: 3 SUMAtriptan (IMITREX) 50 mg tablet, TAKE 1 TABLET BY MOUTH NEEDED WAIT AT LEAST 2 HOURS BETWEEN DOSES, Disp: , Rfl: topiramate (TOPAMAX) 100 mg tablet, TAKE 1 TABLET (100 MG TOTAL) BY MOUTH IN THE MORNING AND AT BEDTIME FOR 90 DAYS., Disp: 180 tablet, Rfl: 0 torsemide (DEMADEX) 20 mg tablet, Take 4 tablets in the AM by mouth on Thu, , and Thursday. Take 4 tablet in the AM and 2 tablets in the PM on Thu, Thu and Thursday, Disp: 438 tablet, Rfl:3 venlafaxine XR (EFFEXOR XR) 75 mg 24 hr capsule, TAKE 1 CAPSULE BY MOUTH EVERY DAY IN THE MORNING, Disp: , Rfl: venlafaxine XR (EFFEXOR-XR) 150 mg 24 hr capsule, Take 225 mg by mouth in the morning., Disp: , Rfl: pregabalin (LYRICA) 100 mg capsule, Take 1 capsule (100 mg total) by mouth in the morning and 1 capsule (100 mg total) before bedtime., Disp: 60 capsule, Rfl: 0 Lab Results No visits with results within 1 Month(s) from this visit. Latest known visit with results is: Hospital Outpatient Visit on 01/04/2024 Component Date Value Ref Range Status Sodium 01/04/2024 141 134 - 146 mmol/L Final Potassium, Bld 01/04/2024 4.1 3.5 - 5.0 mmol/L Final Chloride 01/04/2024 101 98 - 109 mmol/L Final CO2 01/04/2024 31 22 - 32 mmol/L Final Anion gap 01/04/2024 9 5 - 15 mmol/L Final BUN 01/04/2024 19 5 - 27 mg/dL Final Creatinine 01/04/2024 1.36 (H) 0.40 - 1.00 mg/dL Final Glucose 01/04/2024 134 (H) 65 - 99 mg/dL Final Calcium 01/04/2024 9.1 8.5 - 10.5 mg/dL Final eGFR (CKD-EPI)non-race dependent 01/04/2024 44 (L) >59 ml/min/1.73sq.m Final Other Testing X-ray chest 1 view Result Date: 12/17/2023 Single view chest History:sob Difficulty breathing, shortness of breath Comparison: 10/20/2023 Findings: Single portable view of the chest. Stable cardiomediastinal silhouette. Prior median sternotomy. No focal opacity, effusion or pneumothorax. Impression: No evidence of acute cardiopulmonary process. Finalized by Victor Hugo Kim MD on 12/17/2023 11:39 AM Rajni Cardozo DO., [facility] Office: [phone] documented in this encounterUniversity Hospitals Samar[facility] Center10-28-2024 Miscellaneous Notes* Telephone Encounter - Monica Johnston CMA - 02/22/2024 12:27 PM EDT Pts' friend norma called was wondering what you were going to do with the pregabalin there were no refills , pt stated the gabapentin worked better but needed to know if you were going to refill the pregabalin or in crease the dosage ? * Telephone Encounter - Rajni Cardozo DO - 02/22/2024 12:27 PM EDT Message noted. Needs a recheck appointment to discuss * Telephone Encounter - Cathleen Arreola - 02/22/2024 12:27 PM EDT Comes in 03/07 is that okay? * Telephone Encounter - Rajni Cardozo DO - 02/22/2024 12:27 PM EDT Message noted. Yes documented in this encounterUniversity Hospitals Samaritan [facility] Center10-28-2024 Telephone encounter Note* Telephone Encounter - Monica Johnston CMA - 02/22/2024 12:27 PM EDT Pts' friend norma called was wondering what you were going to do with the pregabalin there were no refills , pt stated the gabapentin worked better but needed to know if you were going to refill the pregabalin or in crease the dosage ? [facility]10-28-[facility] Telephone encounter Note* Telephone Encounter - Rajni Cardozo DO - 02/22/2024 12:27 PM EDT Message noted. Needs a recheck appointment to discuss [facility] Telephone encounter Note* Telephone Encounter - Cathleen Arreola - 02/22/2024 12:27 PM EDT Comes in 03/07 is that okay? [facility] Telephone encounter Note* Telephone Encounter - Rajni Cardozo DO - 02/22/2024 12:27 PM EDT Message noted. Yes [facility]10-25-[facility] History of Present illness Narrative* Myriam Giles MD - 02/19/2024 10:45 AM EDT Monet Recinos Date of visit: 02/19/2024 Date of : 1960 Age: 63 y.o. Patient Active Problem List Diagnosis NSTEMI (non-ST elevated myocardial infarction) ([facility]) Obesity (BMI 30-39.9) Atherosclerotic heart disease of [place] coronary artery with other forms of angina pectoris ([facility]) Hyperglycemia Cigarette nicotine dependence in remission Depression Liver disease Visual impairment BONY treated with BiPAP Chronic heart failure with preserved ejection fraction ([facility]) Essential hypertension Hx of hyperlipidemia Former smoker Agoraphobia Anxiety Chipped tooth GERD (gastroesophageal reflux disease) Low back pain Osteoarthritis PTSD (post-traumatic stress disorder) Bipolar 2 disorder, major depressive episode ([facility]) Cannabis use disorder, mild, abuse Major depressive disorder Panic disorder Weakness BMI 40.0-44.9, adult ([facility]) Chronic respiratory failure with hypoxia and hypercapnia ([facility]) Acute pulmonary embolism without acute cor pulmonale, unspecified pulmonary embolism type ([facility]) Closed wedge compression fracture of T6 vertebra with routine healing Allergies Allergen Reactions Penicillins Anaphylaxis Other Reaction(s): Swelling of Lip/Tongue/Throat Morphine Other (See Comments) I hallucinate This is not a true allergy Current Outpatient Medications Medication Sig Dispense Refill acetaminophen (TYLENOL) 325 mg tablet Take 2 tablets (650 mg total) by mouth every 4 (four) hours as needed for pain or headaches. 30 tablet 0 albuterol (ACCUNEB) 0.63 mg/3 mL nebulizer solution Inhale 3 mL (0.63 mg total) by nebulization every 6 (six) hours as needed for wheezing. albuterol (PROVENTIL HFA;VENTOLIN HFA) 90 mcg/actuation inhaler INHALE 2 PUFF BY MOUTH AND INTO THELUNGS EVERY 4-6 HOURS NEEDED FOR BREATHING ISSUES FOR 17 DAYS for 17 ARIPiprazole (ABILIFY) 15 mg tablet TAKE 1 TABLET BY MOUTH EVERYDAY AT BEDTIME atorvastatin (LIPITOR) 80 mg tablet TAKE 1 TABLET (80 MG TOTAL) BY MOUTH IN THE MORNING 90 tablet 3 yzewaycnrk-brqdauvy-fmkrfyqnaq (BREZTRI AEROSPHERE) 160-9-4.8 mcg/actuation HFA aerosol inhaler Inhale 2 puffs in the morning and 2 puffs before bedtime. 10.7 g 10 calcitonin, salmon, (MIACALCIN) 200 unit/actuation nasal spray Administer 1 spray into alternating nostrils in the morning. 3.7 mL 12 cholecalciferol, vitamin D3, 5,000 units tablet Take 2 tablets (10,000 Units total) by mouth in themorning. clonazePAM (KlonoPIN) 0.5 mg tablet TAKE 1 TABLET BY MOUTH TWICE A DAY cyanocobalamin (vitamin B-12) 1000 MCG tablet Take 1 tablet (1,000 mcg total) by mouth in the morning. 90 tablet 1 diclofenac sodium (VOLTAREN) 1 % gel APPLY 2 G TOPICALLY IN THE MORNING AT AT NOON IN THE EVENING AND BEFORE BEDTIME 100 g 2 doxepin (SINEquan) 75 mg capsule 1 capsule at bedtime Orally Once a day JARDIANCE 10 mg tablet tablet TAKE 1 TABLET (10 MG TOTAL) BY MOUTH IN THE MORNING 90 tablet 3 lamoTRIgine (LaMICtal) 150 mg tablet TAKE 1 TABLET BY MOUTH EVERY DAY pantoprazole (PROTONIX) 40 mg EC tablet Take 1 tablet (40 mg total) by mouth every morning before breakfast. 90 tablet 1 potassium chloride (KLOR-CON M 20) 20 MEQ CR tablet Take 1 tablet (20 mEq total) by mouth in the morning. pregabalin (LYRICA) 50 mg capsule Take 1 capsule (50 mg total) by mouth in the morning and 1 capsule (50 mg total) before bedtime. 60 capsule 0 propranolol LA (INDERAL LA) 80 mg 24 hr capsule Take 1 capsule (80 mg total) by mouth in the morning. spironolactone (ALDACTONE) 25 mg tablet TAKE 1 TABLET (25 MG TOTAL) BY MOUTH IN THE MORNING 90 tablet 3 SUMAtriptan (IMITREX) 50 mg tablet TAKE 1 TABLET BY MOUTH NEEDED WAIT AT LEAST 2 HOURS BETWEEN DOSES topiramate (TOPAMAX) 100 mg tablet TAKE 1 TABLET (100 MG TOTAL) BY MOUTH IN THE MORNING AND AT BEDTIME FOR 90 DAYS. 180 tablet 0 torsemide (DEMADEX) 20 mg tablet Take 4 tablets in the AM by mouth on Thu, , and Thursday. Take 4 tablet in the AM and 2 tablets in the PM on Thu, Thu and Thursday 438 tablet 3 venlafaxine XR (EFFEXOR XR) 75 mg 24 hr capsule TAKE 1 CAPSULE BY MOUTH EVERY DAY IN THE MORNING venlafaxine XR (EFFEXOR-XR) 150 mg 24 hr capsule Take 225 mg by mouth in the morning. cyclobenzaprine (FLEXERIL) 10 mg tablet TAKE 1 TABLET BY MOUTH THREE TIMES A DAY NEEDED FOR PAIN/SPASM NO DRIVING WHILE ON MEDICATION (Patient not taking: Reported on 02/19/2024) No current facility-administered medications for this visit. Chief Complaint Patient presents with Follow-up EST PT F/U 4 MS L/S RDG History of Present Illness Overall doing well she is going through therapy for her back and hip in his doing a bit better she lost 50 lb some of it water weight she feels good now though no chest pain breathing is better no lightheadedness syncope or near-syncope Past Medical History: Diagnosis Date Agoraphobia Angina at rest ([facility]) Anxiety BiPAP (biphasic positive airway pressure) dependence Patient states she no longer uses a BIPAP 01/28/23 Bipolar disorder ([facility]) Breast injury CHF (congestive heart failure) ([facility]) Chipped tooth Chronic kidney disease COPD (chronic obstructive pulmonary disease) ([facility]) Coronary artery disease Dementia ([facility]) Depression Diarrhea frequent bouts /involuntary Dizziness Fracture, vertebral, lumbar closed ([facility]) GERD (gastroesophageal reflux disease) Headache History of coronary artery bypass graft 08/14/2020 Liver disease Low back pain Lump or mass in breast Memory loss Myocardial infarction ([facility]) Apr 2009, swith stent placement Obesity BONY treated with BiPAP 07/31/2022 Osteoarthritis Panic disorder Psoriasis PTSD (post-traumatic stress disorder) Pulmonary emboli ([facility]) Rib fracture 09/2023 lt Rotator cuff tear L Shortness of breath Sleep apnea Visual impairment glasses No data recorded No data recorded No data recorded Past Surgical History: Procedure Laterality Date BREAST BIOPSY BREAST CYST EXCISION Cardiac catheterization N/A 01/09/2020 Performed by Yefri Khan MD at [facility] Cardiac catheterization-LV Cors N/A 08/06/2020 Performed by Hazel Painting MD at [facility] SECTION CHOLECYSTECTOMY COLONOSCOPY N/A 04/03/2017 Performed by Jose Beaver MD at [facility] Coronary angiogram and left ventricular gram/pressure N/A 01/09/2020 Performed by Yefri Khan MD at [facility] CORONARY ANGIOPLASTY WITH STENT PLACEMENT CORONARY ARTERY BYPASS GRAFT X4/ THOMPSON/ SVG X3 / RIGHT UPPER LEG OPEN VEIN HARVEST/ LEFT UPPER LEG OPEN VEING HARVEST /GINETTE N/A 08/13/2020 Performed by Leroy Meng MD at [facility] Drug eluting stent left anterior descending N/A 01/09/2020 Performed by Yefri Khan MD at [facility] EXCISION SEROMA LOWER EXTREMITY Left 10/07/2022 Performed by Victor Hugo Vincent DO at [facility] Intravascular ultrasound coronary N/A 08/06/2020 Performed by Hazel Painting MD at [facility] Intravascular ultrasound coronary N/A 01/09/2020 Performed by Yefri Khan MD at [facility] NOTCHARGED/Thrombolysis arterial initial treatment N/A 01/09/2020 Performed by Yefri Khan MD at [facility] TONSILLECTOMY Family History Problem Relation Age of Onset Hypertension Mother Depression Mother Heart failure Mother Alcohol abuse Father Dementia Father Cancer Maternal Grandmother Cervical cancer Maternal Grandmother Breast cancer Neg Hx Social History Socioeconomic History Marital status: Single Spouse name: Not on file Number of children: Not on file Years of education: Not on file Highest education level: Not on file Occupational History Not on file Tobacco Use Smoking status: Former Current packs/day: 0.00 Average packs/day: 1 pack/day for 40.0 years (40.0 ttl pk-yrs) Types: Cigarettes Start date: 09/1981 Quit date: 09/2021 Years since quittin.4 Smokeless tobacco: Never Tobacco comments: 5-6 cigerettes [...] Social Drivers of Health Financial Resource Strain: Medium Risk (07/25/2023) Overall Financial Resource Strain (CARDIA) Difficulty of Paying Living Expenses: Somewhat hard Food Insecurity: No Food Insecurity (02/19/2024) Hunger Screening Food Insecurity - Worry: Never True Food Insecurity - Inability: Never True Transportation Needs: No Transportation Needs (08/28/2023) PRAPARE - Transportation Lack of Transportation (Medical): No Lack of Transportation (Non-Medical): No Physical Activity: Inactive (07/25/2023) Exercise Vital Sign Days of Exercise per Week: 0 days Minutes of Exercise per Session: 0 min Stress: No Stress Concern Present (07/25/2023) [place] [facility] [employer] [facility] - Occupational Stress Questionnaire Feeling of Stress : Only a little Recent Concern: Stress - Stress Concern Present (07/25/2023) [place] [facility] [employer] - Occupational Stress Questionnaire Feeling of Stress : Very much Social Connections: Moderately Isolated (07/25/2023) Social Connection and Isolation Panel [NHANES] Frequency of Communication with Friends and Family: Three times a week Frequency of Social Gatherings with Friends and Family: Three times a week Attends Yarsanism Services: More than 4 times per year Active Member of Clubs or Organizations: No Attends Club or Organization Meetings: Never Marital Status: Interpersonal Safety: Not At Risk (08/28/2023) Humiliation, Afraid, Rape, and Kick questionnaire Fear of Current or Ex-Partner: No Emotionally Abused: No Physically Abused: No Sexually Abused: No Housing Instability: Low Risk (08/28/2023) Housing Instability Housing Instability: No Review of Systems Review of Systems Constitutional: Positive for malaise/fatigue. HENT: Positive for hoarse voice. Eyes: Positive for double vision. Cardiovascular: Negative. Respiratory: Positive for cough and shortness of breath. Endocrine: Negative. Hematologic/Lymphatic: Bruises/bleeds easily. Skin: Negative. Musculoskeletal: Positive for back pain. Gastrointestinal: Negative. Genitourinary: Negative. Neurological: Positive for dizziness, headaches, light-headedness, loss of balance and numbness. Psychiatric/Behavioral: Negative for depression. The patient is nervous/anxious. Allergic/Immunologic: Negative. Vascular: Negative. CARDIOVASCULAR: Please review HPI. Physical Examination General appearance: Alert, oriented and cooperative. In no acute distress. Skin: Warm and dry to touch. Head: Normocephalic, without obvious abnormality, atraumatic. Ears, Nose, Mouth, Throat: Throat clear without erythema or exudate. Dentition intact. Eyes: Conjunctivae unremarkable, EOM intact. Neck: No JVD, No carotid bruit. Neck supple, trachea midline. Respiratory: Clear to auscultation bilaterally, no use of accessory muscles. Cardiovascular: RRR with normal S1 and S2 with no murmurs. Gastrointestinal: Soft, non-tender. Bowel sounds normal. Musculoskeletal: No peripheral edema. Neurologic: Oriented to time, person and place, affect appropriate. No focal/major motor defects noted. Psychiatric: Appropriate mood, memory and judgement. VITAL SIGNS: BP 100/66 (BP Site: Left Arm, BP Postition: Sitting) Pulse 71 Ht 175.3 cm (5' 9 ) Wt 103.5 kg(228 lb 3.2 oz) SpO2 93% BMI 33.70 kg/m No orders of the defined types were placed in this encounter. There are no discontinued medications. IMPRESSIONS/PLAN There are no diagnoses linked to this encounter. CAD s/p CABG x4 THOMPSON-LAD, SVG to PDA, SVG to OM1 and SVG to diagonal on 08/13/2020. PCI to LAD in 2019 for NSTEMI. HFpEF Bipolar disorder Tobacco abuse, abstaining Anemia Fatique Combined obstructive and restrictive pattern on PFT; Pulmonary Lingular Nodule 11mm; BONY Prior tobacco Obesity BMI 33.7 Overall doing well losing weight feeling better most of her issues seem more orthopedic right now continue with heart failure clinic continue with same medicines TODAYS ORDERS No orders of the defined types were placed in this encounter. FOLLOW UP No follow-ups on file. PCP: Rajni Cardozo Jr, DO Referring Physician: Rajni Cardozo DO [address] [place] [address] documented in this encounterUniversity Hospitals [facility]10-24-2024 Miscellaneous Notes* Telephone Encounter - Vicki Bailey CMA - 02/18/2024 9:30 AM EDT Called patient to remind them to bring their most current copy of their medication list with them to their appt. Patient verbalizes understanding. documented in this encounterUniversity Hospitals [facility]10-24-2024 Telephone encounter Note* Telephone Encounter - Vicki Bailey CMA - 02/18/2024 9:30 AM EDT Called patient to remind them to bring their most current copy of their medication list with them to their appt. Patient verbalizes understanding. [facility] [employer] [id number] History of Present illness Narrative* Eusebia Huertas DO - 02/09/2024 1:30 PM EDT Images from the original note were not included. HISTORY OF PRESENT ILLNESS: Monet Recinos is an 63 y.o. @ female. Chief complaint LT SI pain Lumbar: Had LT SI trigger point injx 12/28 with partial improvement. She does still has an area of tendernessover LT SI. Chronic LT sided low back, pain flared up x 2-3 months ago. She has a history of LBP. Taking TYL/IBU, no relief. Using heating pad and ice. Tried topical pain cream without relief Denies injury. Painwhen she gets up and down in chair. Trouble with stairs. Pain at HS. Pain radiates down LT leg at times. Denies N/T. Injections and nerve blocks in the past. Last saw [facility] pain clinic 09/2022, PT and aquatic therapy ordered , also RX for zanaflex. Prior treatment: pain clinic [facility] 09/2022, [facility] ER 08/27, MRI T-spine 09/10/23, calcitonin NS, norco, Lumbar MRI [facility] 11/27/22, LT ST Trigger point injx 12/29/23, pain cream, ice, heat MEDICATION: Current Outpatient Medications on File Prior to Visit Medication Sig Dispense Refill acetaminophen (Tylenol) 325 MG tablet Take 325 mg by mouth every 4 (four) hours if needed for mild pain albuterol 0.63 MG/3ML nebulizer solution Take 0.63 mg by nebulization every 6 (six) hours if neededfor wheezing albuterol HFA 90 mcg/act inhaler Inhale 2 puffs every 4 (four) hours if needed for wheezing ARIPiprazole (Abilify) 15 MG disintegrating tablet Take 15 mg by mouth Daily aspirin 81 MG EC tablet Take 81 mg by mouth Daily atorvastatin (Lipitor) 80 MG tablet Take 80 mg by mouth Daily Ygulvho-Rnrldmpfepk-Fogxoxnmxn (Breztri Aerosphere) 160-9-4.8 MCG/ACT aerosol Inhale calcitonin, salmon, (Miacalcin) 200 UNIT/ACT nasal spray Administer 1 spray into affected nostril(s) in the morning. cholecalciferol (Vitamin D-3) 125 MCG (5000 UT) capsule Take 5,000 Units by mouth Daily clonazePAM (KlonoPIN) 0.25 MG disintegrating tablet Take 0.25 mg by mouth 2 (two) times a day as needed for seizures cyclobenzaprine (Flexeril) 10 MG tablet Take 5 mg by mouth 3 (three) times a day as needed for muscle spasms diclofenac sodium (Voltaren) 1 % gel Apply 2 g topically in the morning and 2 g in the evening and 2 g before bedtime. doxepin (SINEquan) 75 MG capsule Take 75 mg by mouth at bedtime empagliflozin (Jardiance) 10 MG Take by mouth lamoTRIgine (LaMICtal) 100 MG tablet Take 100 mg by mouth pantoprazole (ProtoNix) 40 MG EC tablet Take 40 mg by mouth in the morning. Take before meals. Do not crush, chew, or split.. potassium chloride CR (Klor-Con M20) 20 MEQ ER tablet Take 20 mEq by mouth Daily Do not crush or chew. propranolol XL (Innopran XL) 80 MG 24 hr capsule Take 80 mg by mouth at bedtime Do not crush, chew,or split. spironolactone (Aldactone) 25 MG tablet Take 25 mg by mouth Daily SUMAtriptan (Imitrex) 25 MG tablet Take 25 mg by mouth 1 (one) time if needed for migraine May repeat dose once in 2 hours if no relief. Do not exceed 2 doses in 24 hours. topiramate 50 MG tablet Take 50 mg by mouth torsemide (Demadex) 20 MG tablet Take 20 mg by mouth Daily venlafaxine XR (Effexor XR) 150 MG 24 hr capsule Take 150 mg by mouth Daily Do not crush or chew. venlafaxine XR (Effexor XR) 75 MG 24 hr capsule Take 75 mg by mouth Daily Do not crush or chew. No current facility-administered medications on file prior to visit. MEDICAL HISTORY: Past Medical History: Diagnosis Date Agoraphobia ([facility]) Angina at rest ([facility]) Anxiety BiPAP (biphasic positive airway pressure) dependence Bipolar disorder ([facility]) Breast injury CAD (coronary artery disease) ([facility]) Cervical disc disorder Chronic kidney disease Congestive heart failure (CHF) ([facility]) COPD (chronic obstructive pulmonary disease) ([facility]) Dementia ([facility]) Depression ([facility]) GERD (gastroesophageal reflux disease) Liver disease Lumbosacral disc disease Memory loss Myocardial infarction ([facility]) BONY (obstructive sleep apnea) Osteoarthritis Panic disorder ([facility]) Psoriasis ([facility]) PTSD (post-traumatic stress disorder) ([facility]) Shortness of breath Thoracic disc disease Visual impairment ALLERGIES: Allergies Allergen Reactions Penicillins Anaphylaxis Other Reaction(s): Swelling of Lip/Tongue/Throat Morphine VITALS: Visit Vitals Smoking Status Former PHYSICAL EXAM: Ortho Exam LT SI tenderness Gait intact ASSESSMENT: ICD-10-CM 1. Trigger point of left side of body M79.10 2. Arthritis of left sacroiliac joint (CMS/HCC) M46.1 3. Lumbosacral pain M54.50 4. Pain of left sacroiliac joint M53.3 Ambulatory referral to Pain Medicine PLAN: I recommend referral to pain management to E/T SI and lumbosacral pain. Follow up as needed, any issues/concerns follow up sooner. Dr. Huertas obtained history and examined the patient, I am acting as scribe for Dr. Huertas/guido Huertas D.O. documented in this encounterExcelsior Springs Medical [id number] Miscellaneous Notes* Telephone Encounter - Fior Scott CMA - 02/03/2024 3:42 PM EDT Requesting a referral to a new operating room specialist and said she would explain when we c all back. I called back and got no answer and mailbox is full. * Telephone Encounter - Monica Johnston CMA - 02/03/2024 3:42 PM EDT Pt called back stated she really needs a referral for a new operating room specialist * Telephone Encounter - Rajni Cardozo DO - 02/03/2024 3:42 PM EDT Message noted. Please try again. We need to know which operating room specialist is on her insurance plan in order to make a referral. * Telephone Encounter - Cathleen Arreola - 02/03/2024 3:42 PM EDT LM on VM * Telephone Encounter - Sofya Coe CMA - 02/03/2024 3:42 PM EDT Patient's family called back and they need a referral to Dr. Guerrero [id number] [place], [place] * Telephone Encounter - Rajni Cardozo DO - 02/03/2024 3:42 PM EDT Message noted. The referral was sent today. She can call and schedule at any time. * Telephone Encounter - Cathleen Arreola - 02/03/2024 3:42 PM EDT Referral sent documented in this encounterUniversity Hospitals [facility]10-09-2024 Telephone encounter Note* Telephone Encounter - Fior Scott CMA - 02/03/2024 3:42 PM EDT Requesting a referral to a new operating room specialist and said she would explain when we c all back. I called back and got no answer and mailbox is full. [facility]10-09-2024 Telephone encounter Note* Telephone Encounter - Monica Johnston CMA - 02/03/2024 3:42 PM EDT Pt called back stated she really needs a referral for a new operating room specialist [facility]10-09-2024 Telephone encounter Note* Telephone Encounter - Rajni Cardozo DO - 02/03/2024 3:42 PM EDT Message noted. Please try again. We need to know which operating room specialist is on her insurance plan in order to make a referral. [facility]10-09-2024 Telephone encounter Note* Telephone Encounter - Cathleen Arreola - 02/03/2024 3:42 PM EDT LM on VM [facility]10-09-2024 Telephone encounter Note* Telephone Encounter - Sofya Coe CMA - 02/03/2024 3:42 PM EDT Patient's family called back and they need a referral to Dr. Guerrero [id number] [place], [place] [facility]10-09-2024 Telephone encounter Note* Telephone Encounter - Rajni Cardozo DO - 02/03/2024 3:42 PM EDT Message noted. The referral was sent today. She can call and schedule at any time. [facility]10-09-2024 Telephone encounter Note* Telephone Encounter - Cathleen Arreola - 02/03/2024 3:42 PM EDT Referral sent [facility]10-07-2024 Miscellaneous Notes* Telephone Encounter - Vandana Resendiz - 02/01/2024 9:49 AM EDT Patient called and said that she needs office to send POC to [facility] for her oxygen therapy. Medical Surgery Nurse let patient know that SE is not the one who wrote the order for the Oxygen therapy and that it was her primary care provider. [facility] that she had to have her oxygen therapy orders through pulmonary provider. Please Advise * Telephone Encounter - Shari Garcia RN - 02/01/2024 9:[address] Cardozo, PCP office ordered oxygen for nocturnal only. DME will not provide POC for patient with order for nocturnal oxygen only. Second, PCP office can sign oxygen therapy orders as they were the ones that ordered it. Any physician. Not just pulmonary. Please call patient and update. * Telephone Encounter - Vandana Resendiz - 02/01/2024 9:49 AM EDT Medical Surgery Nurse called patient in regards earlier call and left voicemail to return call to office for information about her oxygen therapy order. Office phone number provided. documented in this encounterUniversity Hospitals [facility]10-07-2024 Telephone encounter Note* Telephone Encounter - Vandana Resendiz - 02/01/2024 9:49 AM EDT Patient called and said that she needs office to send POC to [facility] for her oxygen therapy. Medical Surgery Nurse let patient know that SE is not the one who wrote the order for the Oxygen therapy and that it was her primary care provider. Patient stated [facility] stated that she had to have her oxygen therapy orders through pulmonary provider. Please Advise [facility] [id number] Telephone encounter Note* Telephone Encounter - Shari Garcia RN - 02/01/2024 9:[address] Cardozo, PCP office ordered oxygen for nocturnal only. DME will not provide POC for patient with order for nocturnal oxygen only. Second, PCP office can sign oxygen therapy orders as they were the ones that ordered it. Any physician. Not just pulmonary. Please call patient and update. [facility]10-07-2024 Telephone encounter Note* Telephone Encounter - Vandana Magana Astrid - 02/01/2024 9:49 AM EDT Medical Surgery Nurse called patient in regards earlier call and left voicemail to return call to office for information about her oxygen therapy order. Office phone number provided. [facility]10-01-2024 History of Present illness Narrative* Eusebia Huertas DO - 01/26/2024 1:00 PM EDTAssociated Order(s): L Inj/Asp: L subacromial bursa Post-Procedure Diagnose(s): Left shoulder pain, unspecified chronicity Images from the original note were not included. HISTORY OF PRESENT ILLNESS: Monet Recinos is an 63 y.o. @ female. Chief complaint LT shoulder pain New patient: LT shoulder LT shoulder pain x 4-5 years, not getting worse. Pain over posterior shoulder and above and behind scapula. Can radiate into neck and cause headaches. Painful ROM. Painful at HS. Admits numbness in upper arm. Admits weakness. Not able to lift much. Has seen Dr Castro with prior injections, last visit about 3 months ago. Prior treatment: PT 1-2 years ago, injections, Dr Castro, IBU, TYL, biofreeze, jud cortez, la nena MEDICATION: Current Outpatient Medications on File Prior to Visit Medication Sig Dispense Refill acetaminophen (Tylenol) 325 MG tablet Take 325 mg by mouth every 4 (four) hours if needed for mild pain albuterol 0.63 MG/3ML nebulizer solution Take 0.63 mg by nebulization every 6 (six) hours if neededfor wheezing albuterol HFA 90 mcg/act inhaler Inhale 2 puffs every 4 (four) hours if needed for wheezing ARIPiprazole (Abilify) 15 MG disintegrating tablet Take 15 mg by mouth Daily aspirin 81 MG EC tablet Take 81 mg by mouth Daily atorvastatin (Lipitor) 80 MG tablet Take 80 mg by mouth Daily Kmxkxon-Dbrufstvpzd-Tjbossbjfs (Breztri Aerosphere) 160-9-4.8 MCG/ACT aerosol Inhale calcitonin, salmon, (Miacalcin) 200 UNIT/ACT nasal spray Administer 1 spray into affected nostril(s) in the morning. cholecalciferol (Vitamin D-3) 125 MCG (5000 UT) capsule Take 5,000 Units by mouth Daily clonazePAM (KlonoPIN) 0.25 MG disintegrating tablet Take 0.25 mg by mouth 2 (two) times a day as needed for seizures cyclobenzaprine (Flexeril) 10 MG tablet Take 5 mg by mouth 3 (three) times a day as needed for muscle spasms diclofenac sodium (Voltaren) 1 % gel Apply 2 g topically in the morning and 2 g in the evening and 2 g before bedtime. doxepin (SINEquan) 75 MG capsule Take 75 mg by mouth at bedtime empagliflozin (Jardiance) 10 MG Take by mouth lamoTRIgine (LaMICtal) 100 MG tablet Take 100 mg by mouth pantoprazole (ProtoNix) 40 MG EC tablet Take 40 mg by mouth in the morning. Take before meals. Do not crush, chew, or split.. potassium chloride CR (Klor-Con M20) 20 MEQ ER tablet Take 20 mEq by mouth Daily Do not crush or chew. propranolol XL (Innopran XL) 80 MG 24 hr capsule Take 80 mg by mouth at bedtime Do not crush, chew,or split. spironolactone (Aldactone) 25 MG tablet Take 25 mg by mouth Daily SUMAtriptan (Imitrex) 25 MG tablet Take 25 mg by mouth 1 (one) time if needed for migraine May repeat dose once in 2 hours if no relief. Do not exceed 2 doses in 24 hours. topiramate 50 MG tablet Take 50 mg by mouth torsemide (Demadex) 20 MG tablet Take 20 mg by mouth Daily venlafaxine XR (Effexor XR) 150 MG 24 hr capsule Take 150 mg by mouth Daily Do not crush or chew. venlafaxine XR (Effexor XR) 75 MG 24 hr capsule Take 75 mg by mouth Daily Do not crush or chew. No current facility-administered medications on file prior to visit. MEDICAL HISTORY: Past Medical History: Diagnosis Date Agoraphobia (CMS/HCC) Angina at rest (CMS/[facility]) Anxiety BiPAP (biphasic positive airway pressure) dependence Bipolar disorder ([facility]) Breast injury CAD (coronary artery disease) ([facility]) Cervical disc disorder Chronic kidney disease Congestive heart failure (CHF) ([facility]) COPD (chronic obstructive pulmonary disease) ([facility]) Dementia ([facility]) Depression ([facility]) GERD (gastroesophageal reflux disease) Liver disease Lumbosacral disc disease Memory loss Myocardial infarction ([facility]) BONY (obstructive sleep apnea) Osteoarthritis Panic disorder ([facility]) Psoriasis ([facility]) PTSD (post-traumatic stress disorder) ([facility]) Shortness of breath Thoracic disc disease Visual impairment ALLERGIES: Allergies Allergen Reactions Penicillins Anaphylaxis Other Reaction(s): Swelling of Lip/Tongue/Throat Morphine VITALS: Visit Vitals Smoking Status Former PHYSICAL EXAM: Ortho Exam LT shoulder ROM 120/110/L4 Positive crossover Positive empty can XR shoulder 2+ views left Imaging Result: January 26, 2024 x-rays AP axillary and Y scapula of the left shoulder demonstrate a type 2 acromion. The glenohumeral joint and acromioclavicular joints are intact. There are no fractures identified.The humeral head is centered in the glenoid. Impression: Type 2 acromion Cipriano Huertas D.O. ASSESSMENT: ICD-10-CM 1. Left shoulder pain, unspecified chronicity M25.512 XR shoulder 2+ views left L Inj/Asp: L subacromial bursa CANCELED: XR shoulder 2+ views left 2. Arthritis of left shoulder region M19.012 L Inj/Asp: L subacromial bursa on 01/26/2024 1:50 PM Indications: pain Details: 21 G needle, posterior approach Medications: 40 mg methylPREDNISolone acetate 40 MG/ML Outcome: tolerated well, no immediate complications Procedure, treatment alternatives, risks and benefits explained, specific risks discussed. Consent was given by the patient. PLAN: I reviewed xray findings with the patient and discussed treatment options, answered questions. Options reviewed including nonsteroidals topicals and an injection she would like an injection. I discussed with the patient the option of an injection. I advised the patient of risks associated with an injection including a reaction to medication, infection, failure to improve and possible worsening. The patient demonstrated understanding. Patient requesting injection. Skin Cleansed with alcohol swab. Utilizing aseptic technique patient given 40mg Depomedrol was injected. Patient tolerated this well. Neurovasc intact s/p injection. Post injection care instructions discussed. Follow up in 1-2 weeks, any issues/concerns follow up sooner. Dr. Huertas obtained history and examined the patient, Sedrick acting as scribe for Dr. Huertas/guido Huertas D.O. documented in this encounterExcelsior Springs Medical [id number] Miscellaneous Notes* Telephone Encounter - Yadira Barrera RN - 01/20/2024 11:13 AM EDT Previous refill was set to no print New rx pended to pool for signature. Last ov 03/31/2023 Upcoming ov on 02/19/2024 Labs 12/17/2023 documented in this encounterUniversity [facility]als [facility]09-25-2024 Telephone encounter Note* Telephone Encounter - Yadira Barrera RN - 01/20/2024 11:13 AM EDT Previous refill was set to no print New rx pended to pool for signature. Last ov 03/31/2023 Upcoming ov on 02/19/2024 Labs 12/17/2023 [facility]-24-2024 Miscellaneous Notes* Telephone Encounter - Anabela Cueva CMA - 01/19/2024 9:09 AM EDT LM to call back and RS appt from today documented in this encounterUniversity Hospitals [facility]09-24-2024 Telephone encounter Note* Telephone Encounter - Anabela Cueva CMA - 01/19/2024 9:09 AM EDT LM to call back and RS appt from today [facility]-24-2024 Miscellaneous Notes* Telephone Encounter - Anabela Cueva CMA - 01/19/2024 8:40 AM EDT Message is left for patient to call back and reschedule her appt for today. documented in this encounterUniversity Hospitals [facility]09-24-2024 Telephone encounter Note* Telephone Encounter - Anabela Cueva CMA - 01/19/2024 8:40 AM EDT Message is left for patient to call back and reschedule her appt for today. [facility]09-23-2024 Miscellaneous Notes* Telephone Encounter - Vicki Bailey CMA - 01/18/2024 10:32 AM EDT Called patient to remind them to bring their most current copy of their medication list with them to their appt. Patient verbalizes understanding. documented in this encounterUniversity Hospitals [facility]09-23-2024 Telephone encounter Note* Telephone Encounter - Vicki Bailey CMA - 01/18/2024 10:32 AM EDT Called patient to remind them to bring their most current copy of their medication list with them to their appt. Patient verbalizes understanding. [facility]09-23-2024 Miscellaneous Notes* Telephone Encounter - Caitie Cabello RN - 01/18/2024 9:06 AM EDT 03/31/23 ov with upcoming appt 01/19/24 01/04/24 BMP PC from pt needing refill documented in this encounterUniversity Hospitals [facility]09-23-2024 Telephone encounter Note* Telephone Encounter - Caitie Cabello RN - 01/18/2024 9:06 AM EDT 03/31/23 ov with upcoming appt 01/19/24 01/04/24 BMP PC from pt needing refill [facility]-17-[facility]24 History of Present illness Narrative* Eusebia Huertas, DO - 01/12/2024 10:45 AM EDT Images from the original note were not included. HISTORY OF PRESENT ILLNESS: Monet Recinos is an 63 y.o. @ female. S/p LT SI trigger point injx Lumbar: 2 weeks s/p LT SI trigger point injx 12/28 with 90% improvement. She does still have 1 tenderspot. She is complaining of LT sided low back pain flare up x 4-5 weeks. She has a history of LBP. TakingTYL/IBU, no relief. Denies injury. Less pain with sitting since injx. Less pain with sit to stand. Pain at HS. Denies radiation. Denies N/T. Injections and nerve blocks in the past. Last saw [facility] painclinic 09/2022, PT and aquatic therapy ordered , also RX for zanaflex. Prior treatment: pain clinic [facility] 09/2022, [facility] ER 08/27, MRI T-spine 09/10/23, calcitonin NS, norco, Lumbar MRI [facility] 11/27/22, LT ST Trigger point injx 12/29/23 Back Pain This is a chronic problem. The current episode started more than 1 month ago. The problem has been gradually improving. Spine MEDICATION: Current Outpatient Medications on File Prior to Visit Medication Sig Dispense Refill acetaminophen (Tylenol) 325 MG tablet Take 325 mg by mouth every 4 (four) hours if needed for mild pain albuterol 0.63 MG/3ML nebulizer solution Take 0.63 mg by nebulization every 6 (six) hours if neededfor wheezing albuterol HFA 90 mcg/act inhaler Inhale 2 puffs every 4 (four) hours if needed for wheezing apixaban (Eliquis) 5 MG tablet Take by mouth ARIPiprazole (Abilify) 15 MG disintegrating tablet Take 15 mg by mouth Daily aspirin 81 MG EC tablet Take 81 mg by mouth Daily atorvastatin (Lipitor) 80 MG tablet Take 80 mg by mouth Daily Qplslmi-Ijrbjqwltgy-Whhxeqckob (Breztri Aerosphere) 160-9-4.8 MCG/ACT aerosol Inhale calcitonin, salmon, (Miacalcin) 200 UNIT/ACT nasal spray Administer 1 spray into affected nostril(s) in the morning. cholecalciferol (Vitamin D-3) 125 MCG (5000 UT) capsule Take 5,000 Units by mouth Daily clonazePAM (KlonoPIN) 0.25 MG disintegrating tablet Take 0.25 mg by mouth 2 (two) times a day as needed for seizures cyclobenzaprine (Fexmid) 7.5 MG tablet TAKE 1 TABLET BY MOUTH TWICE A DAY NEEDED FOR LOWER BACK PAIN 60 tablet 1 cyclobenzaprine (Flexeril) 10 MG tablet Take 5 mg by mouth 3 (three) times a day as needed for muscle spasms diclofenac sodium (Voltaren) 1 % gel Apply 2 g topically in the morning and 2 g in the evening and 2 g before bedtime. doxepin (SINEquan) 75 MG capsule Take 75 mg by mouth at bedtime doxycycline (Vibramycin) 100 MG capsule Take 100 mg by mouth in the morning and 100 mg before bedtime. Take with at least 8 ounces (large glass) of water, do not lie down for 30 minutes after. empagliflozin (Jardiance) 10 MG Take by mouth gabapentin (Neurontin) 100 MG capsule TAKE 2 CAPSULES BY MOUTH 3 TIMES A DAY FOR 30 DAYS 180 capsule 2 lamoTRIgine (LaMICtal) 100 MG tablet Take 100 mg by mouth oxyCODONE (Oxy-IR) 5 MG immediate release capsule Take 5 mg by mouth pantoprazole (ProtoNix) 40 MG EC tablet Take 40 mg by mouth in the morning. Take before meals. Do not crush, chew, or split.. potassium chloride CR (Klor-Con M20) 20 MEQ ER tablet Take 20 mEq by mouth Daily Do not crush or chew. propranolol XL (Innopran XL) 80 MG 24 hr capsule Take 80 mg by mouth at bedtime Do not crush, chew,or split. spironolactone (Aldactone) 25 MG tablet Take 25 mg by mouth Daily SUMAtriptan (Imitrex) 25 MG tablet Take 25 mg by mouth 1 (one) time if needed for migraine May repeat dose once in 2 hours if no relief. Do not exceed 2 doses in 24 hours. topiramate 50 MG tablet Take 50 mg by mouth torsemide (Demadex) 20 MG tablet Take 20 mg by mouth Daily venlafaxine XR (Effexor XR) 150 MG 24 hr capsule Take 150 mg by mouth Daily Do not crush or chew. venlafaxine XR (Effexor XR) 75 MG 24 hr capsule Take 75 mg by mouth Daily Do not crush or chew. No current facility-administered medications on file prior to visit. MEDICAL HISTORY: Past Medical History: Diagnosis Date Agoraphobia ([facility]) Angina at rest ([facility]) Anxiety BiPAP (biphasic positive airway pressure) dependence Bipolar disorder ([facility]) Breast injury CAD (coronary artery disease) ([facility]) Chronic kidney disease Congestive heart failure (CHF) ([facility]) COPD (chronic obstructive pulmonary disease) ([facility]) Dementia ([facility]/HCC) Depression ([facility]) GERD (gastroesophageal reflux disease) Liver disease Memory loss Myocardial infarction ([facility]) BONY (obstructive sleep apnea) Osteoarthritis Panic disorder ([facility]) Psoriasis ([facility]) PTSD (post-traumatic stress disorder) ([facility]) Shortness of breath Visual impairment ALLERGIES: Allergies Allergen Reactions Penicillins Anaphylaxis Other Reaction(s): Swelling of Lip/Tongue/Throat Morphine VITALS: Visit Vitals Smoking Status Former PHYSICAL EXAM: Ortho Exam SI tenderness resolved Gait intact ASSESSMENT: ICD-10-CM 1. Trigger point of left side of body M79.10 PLAN: I explained the diagnosis and reviewed treatment options. Activities as tolerated. I answered all of the patient's questions. Follow up as needed, any issues/concerns follow up sooner. Dr. Huertasobtained history and examined the patient, I am acting as scribe for Dr. Huertas/guido Huertas D.O. documented in this encounterExcelsior Springs Medical [id number] Miscellaneous Notes* Telephone Encounter - Sofya Coe CMA - 01/07/2024 8:21 AM EDT From DO Sergio Walker Monet Recinos Sent and Delivered 01/04/2024 9:12 PM Your kidney and potassium levels are stable from previous No changes today Left this message on her confidential voice mail documented in this encounterUniversity [facility]als [facility]09-12-2024 Telephone encounter Note* Telephone Encounter - Sofya Coe CMA - 01/07/2024 8:21 AM EDT From DO Sergio WalkerMonetise Sent and Delivered 01/04/2024 9:12 PM Your kidney and potassium levels are stable from previous No changes today Left this message on her confidential voice mail [facility]09-09-2024 History of Present illness Narrative* Rajni Cardozo DO - 01/04/2024 1:00 PM EDT IM PROGRESS NOTE Patient - Monet Recinos Age - 63 y.o. - 1960 ASSESSMENT & PLAN 1. Chronic respiratory failure with hypoxia and hypercapnia ([facility]-HCC) - currently has portable oxygen unit which she uses - this allows her to be functional inside and outside her home - it has helped prevent rehospitalizations for her chronic heart failure - a 6 minute walk was performed on 07/27/2023, and she was able to qualify at that time. This information will be passed on to her DME supplier - [employer]; Future 2. BONY treated with BiPAP -now has CPAP machine, but working to find a good fitting mask - continue working with respiratory therapy through her DME supplier 3. Spinal stenosis of lumbar region with neurogenic claudication - chronic problem. - patient has received spinal injections, and prescriptions for cyclobenzaprine, gabapentin, and topiramate - I am concerned about the side effects of the gabapentin and cyclobenzaprine given her chronic heart failure - will continue to titrate topiramate up as tolerated for pain relief. Increased to 100 mg twice daily today -discontinue gabapentin and cyclobenzaprine - topiramate (TOPAMAX) 100 mg tablet; Take 1 tablet (100 mg total) by mouth in the morning and at bedtime for 90 days. Dispense: 180 tablet; Refill: 0 4. Chronic heart failure with preserved ejection fraction (CMS-HCC) - GDMT includes Jardiance, spironolactone, propanolol, torsemide And oxygen as above - no changes today. Subjective 63-year-old female presents for evaluation respiratory failure hypoxemia. She previously had been prescribed oxygen with portability, and is switching DME suppliers and needs a new prescription. - she monitors her oxygen levels at home, and they will frequently drop down to 85% on room air - she was prescribed the current oxygen with portability while in the hospital in July 2023. She wears it during the day and at nighttime. She has no trouble operating the portable concentrator or home concentrator. - she also recently received a CPAP mask and CPAP machine. Having some trouble finding the right fit with the mask, otherwise has been attempting to use it regularly. -with the oxygen, she has been able to start exercising regularly. She walks about 1/2 mi a day. She actually feels more limited by her spinal stenosis and back pain. - she has had no admissions to the hospital for her heart failure since starting the oxygen therapy. A review of systems was negative except for the following: General: weight loss Psychiatric: anxiety, memory difficulties, and Bipolar disorder Musculoskeletal: pain in back - bilateral and knee - bilateral Neurological: numbness/tingling and bilateral feet and legs, especially with increased activity Cardiovascular: Swelling has been present but controlled and not worsening. Taking her torsemide regularly.. Exam BP 110/64 (BP Site: Left Arm, BP Postition: Sitting) Pulse 90 Temp 36.7 C (98 F) (Tympanic) Ht 175.3 cm (5' 9 ) Wt 102.6 kg (226 lb 3.2 oz) SpO2 93% BMI 33.40 kg/m Physical Exam Vitals reviewed. Exam conducted with a senior research project manager present (Friend/POA). Constitutional: General: She is not in acute distress. Appearance: She is well-developed. She is obese. She is not toxic-appearing. HENT: Head: Normocephalic. Right Ear: External ear normal. Left Ear: External ear normal. Nose: Nose normal. Eyes: General: No scleral icterus. Neck: Vascular: No carotid bruit. Cardiovascular: Rate and Rhythm: Normal rate. Pulses: Normal pulses. Heart sounds: Normal heart sounds. No murmur heard. No gallop. Comments: Heart tones distant Pulmonary: Effort: Pulmonary effort is normal. Breath sounds: No wheezing or rales. Abdominal: Palpations: Abdomen is soft. Musculoskeletal: Cervical back: Neck supple. Right lower leg: Edema (1+ below the knee) present. Left lower leg: Edema (1+ below the knee) present. Lymphadenopathy: Cervical: No cervical adenopathy. Skin: General: Skin is warm and dry. Coloration: Skin is not jaundiced. Findings: No bruising. Comments: Chronic discoloration of the lower extremities bilaterally. No breakdown, blisters or rashes noted today. Neurological: Mental Status: She is alert and oriented to person, place, and time. Motor: No weakness. Coordination: Coordination normal. Deep [...] albuterol (PROVENTIL HFA;VENTOLIN HFA) 90 mcg/actuation inhaler, INHALE 2 PUFF BY MOUTH AND INTO THE LUNGS EVERY 4-6 HOURS NEEDED FOR BREATHING ISSUES FOR 17 DAYS for 17, Disp: , Rfl: ARIPiprazole (ABILIFY) 15 mg tablet, TAKE 1 TABLET BY MOUTH EVERYDAY AT BEDTIME, Disp: , Rfl: atorvastatin (LIPITOR) 80 mg tablet, TAKE 1 TABLET (80 MG TOTAL) BY MOUTH IN THE MORNING, Disp: 90 tablet, Rfl: 3 cfnzgxbhna-zzziliep-vavsgnmtjs (BREZTRI AEROSPHERE) 160-9-4.8 mcg/actuation HFA aerosol inhaler, Inhale 2 puffs in the morning and 2 puffs before bedtime., Disp: 10.7 g, Rfl: 10 calcitonin, salmon, (MIACALCIN) 200 unit/actuation nasal spray, Administer 1 spray into alternatingnostrils in the morning., Disp: 3.7 mL, Rfl: 12 cholecalciferol, vitamin D3, 5,000 units tablet, Take 2 tablets (10,000 Units total) by mouth in the morning., Disp: , Rfl: clonazePAM (KlonoPIN) 0.5 mg tablet, TAKE 1 TABLET BY MOUTH TWICE A DAY, Disp: , Rfl: cyanocobalamin (vitamin B-12) 1000 MCG tablet, Take 1 tablet (1,000 mcg total) by mouth in the morning., Disp: 90 tablet, Rfl: 1 cyclobenzaprine (FLEXERIL) 10 mg tablet, TAKE 1 TABLET BY MOUTH THREE TIMES A DAY NEEDED FOR PAIN/SPASM NO DRIVING WHILE ON MEDICATION, Disp: , Rfl: diclofenac sodium (VOLTAREN) 1 % gel, APPLY 2 G TOPICALLY IN THE MORNING AT AT NOON IN THE EVENING AND BEFORE BEDTIME, Disp: 100 g, Rfl: 2 doxepin (SINEquan) 75 mg capsule, 1 capsule at bedtime Orally Once a day, Disp: , Rfl: JARDIANCE 10 mg tablet tablet, TAKE 1 TABLET (10 MG TOTAL) BY MOUTH IN THE MORNING, Disp: 90 tablet, Rfl: 3 lamoTRIgine (LaMICtal) 150 mg tablet, TAKE 1 TABLET BY MOUTH EVERY DAY, Disp: , Rfl: pantoprazole (PROTONIX) 40 mg EC tablet, Take 1 tablet (40 mg total) by mouth every morning before breakfast., Disp: 90 tablet, Rfl: 1 potassium chloride (KLOR-CON M 20) 20 MEQ CR tablet, Take 1 tablet (20 mEq total) by mouth in the morning., Disp: , Rfl: propranolol LA (INDERAL LA) 80 mg 24 hr capsule, Take 1 capsule (80 mg total) by mouth in the morning., Disp: , Rfl: spironolactone (ALDACTONE) 25 mg tablet, TAKE 1 TABLET (25 MG TOTAL) BY MOUTH IN THE MORNING, Disp:90 tablet, Rfl: 3 SUMAtriptan (IMITREX) 50 mg tablet, TAKE 1 TABLET BY MOUTH NEEDED WAIT AT LEAST 2 HOURS BETWEEN DOSES, Disp: , Rfl: torsemide (DEMADEX) 20 mg tablet, Take 4 tablets daily on Thursday, Thursday, , Thursday. Take6 tablets daily on Thursday, Thursday, Thursday, Disp: , Rfl: venlafaxine XR (EFFEXOR XR) 75 mg 24 hr capsule, TAKE 1 CAPSULE BY MOUTH EVERY DAY IN THE MORNING, Disp: , Rfl: venlafaxine XR (EFFEXOR-XR) 150 mg 24 hr capsule, Take 225 mg by mouth in the morning., Disp: , Rfl: topiramate (TOPAMAX) 100 mg tablet, Take 1 tablet (100 mg total) by mouth in the morning and at bedtime for 90 days., Disp: 180 tablet, Rfl: 0 Lab Results Admission on 12/17/2023, Discharged on 12/17/2023 Component Date Value Ref Range Status White Blood Cells 12/17/2023 13.7 (H) 4.0 - 11.0 X10E9/L Final RBC count 12/17/2023 4.14 3.80 - 5.20 X10E12/L Final Hemoglobin 12/17/2023 9.8 (L) 11.7 - 15.5 g/dL Final Hematocrit 12/17/2023 32.5 (L) 35 - 47 % Final MCV 12/17/2023 79 (L) 80 - 100 fL Final MCH 12/17/2023 23.6 (L) 27 - 34 pg Final MCHC 12/17/2023 30.1 (L) 32 - 36 g/dL Final RDW 12/17/2023 17.6 (H) 11.5 - 15.0 % Final Platelets 12/17/2023 334 150 - 450 X10E9/L Final MPV 12/17/2023 8.1 7 - 12 fL Final % neutrophils 12/17/2023 77.6 % Final % lymphocytes 12/17/2023 15.9 % Final % monocytes 12/17/2023 4.7 % Final % eosinophils 12/17/2023 0.9 % Final % Basophils 12/17/2023 0.9 % Final Neutrophils Absolute (A) 12/17/2023 10.7 (H) 1.5 - 6.6 X10E9/L Final Lymphocytes Absolute 12/17/2023 2.2 1.0 - 3.5 X10E9/L Final Monocytes Absolute 12/17/2023 0.7 0 - 0.9 X10E9/L Final Eosinophils Absolute 12/17/2023 0.1 0.0 - 0.4 X10E9/L Final Basophils Absolute 12/17/2023 0.1 0.0 - 0.2 X10E9/L Final Sodium 12/17/2023 137 134 - 146 mmol/L Final Potassium, Bld 12/17/2023 4.1 3.5 - 5.0 mmol/L Final Chloride 12/17/2023 100 98 - 109 mmol/L Final CO2 12/17/2023 28 22 - 32 mmol/L Final Anion gap 12/17/2023 9 5 - 15 mmol/L Final BUN 12/17/2023 22 5 - 27 mg/dL Final Creatinine 12/17/2023 1.17 (H) 0.40 - 1.00 mg/dL Final Glucose 12/17/2023 104 (H) 65 - 99 mg/dL Final Calcium 12/17/2023 8.7 8.5 - 10.5 mg/dL Final Total Protein 12/17/2023 7.7 6.0 - 8.0 g/dL Final Albumin 12/17/2023 3.8 3.2 - 5.3 g/dL Final Alkaline Phosphatase 12/17/2023 107 39 - 130 U/L Final AST 12/17/2023 17 0 - 41 U/L Final ALT 12/17/2023 19 0 - 31 U/L Final Total bilirubin 12/17/2023 0.4 0.3 - 1.2 mg/dL Final eGFR (CKD-EPI)non-race dependent 12/17/2023 53 (L) >59 ml/min/1.73sq.m Final BNP 12/17/2023 291 (H) <100.0 pg/mL Final Troponin I, High Sensitivity 12/17/2023 4 <16 ng/L Final 1 Hour Trop I, High Sensitivity 12/17/2023 4 <16 ng/L Final Magnesium 12/17/2023 2.2 1.8 - 2.6 mg/dL Final Sample Type 12/17/2023 VENOUS Final Body Temp 12/17/2023 37.0 37.0 C Final pH, Venous 12/17/2023 7.362 7.320 - 7.420 Final PCO2, Venous 12/17/2023 53.7 (H) 35 - 50 MMHG Final PO2, Venous 12/17/2023 35 30 - 50 MMHG Final Base,Excess 12/17/2023 4.0 (H) 0.0 - 2.0 MMOL/L Final Portable HCO3 12/17/2023 30.5 (H) 20.0 - 24.0 MMOL/L Final % O2 Sat 12/17/2023 63.0 (L) >80.0 % Final Ravindra's Test 12/17/2023 NA Final Sample Site 12/17/2023 N/A Final Insp. O2 Conc. 12/17/2023 21 % Final Oxygen Source 12/17/2023 RoomAir Final FLU A PCR 12/17/2023 Negative Negative^Negative Final FLU B PCR 12/17/2023 Negative Negative^Negative Final RSV by PCR 12/17/2023 Negative Negative^Negative Final SARS CoV 2 BY PCR 12/17/2023 Not Detected Not Detected^Not Detected Final Specific gravity [facility] 12/17/2023 1.015 1.003 - 1.035 Final Leukocyte esterase [facility] 12/17/2023 Negative Negative^Negative Final Nitrite [facility] 12/17/2023 Negative Negative^Negative Final Ph 12/17/2023 6.0 5.0 - 8.5 Final Protein [facility] 12/17/2023 Negative Negative^Negative mg/dL Final Urine glucose [facility] 12/17/2023 250 (A) Negative^Negative mg/dL Final Ketones [facility] 12/17/2023 Negative Negative^Negative mg/dL Final Urobilinogen [facility] 12/17/2023 0.2 <1.1 eu/dL Final Bilirubin [facility] 12/17/2023 Negative Negative^Negative Final Hemoglobin [facility] 12/17/2023 Negative Negative^Negative Final Other Testing X-ray chest 1 view Result Date: 12/17/2023 Single view chest History:sob Difficulty breathing, shortness of breath Comparison: 10/20/2023 Findings: Single portable view of the chest. Stable cardiomediastinal silhouette. Prior median sternotomy. No focal opacity, effusion or pneumothorax. Impression: No evidence of acute cardiopulmonary process. Finalized by Victor Hugo Kim MD on 12/17/2023 11:39 AM X-ray chest 1 view Result Date: 10/20/2023 Portal chest: HISTORY: Pain. Single view the chest was obtained and compared to prior exam of 09/24/2023. Cardiac and mediastinal contours are stable. There is right basilar atelectasis or scarring. No pneumothorax is seen. No new consolidation is identified. There is a fracture the right seventh rib which was not visualized previously. IMPRESSION: Mildly displaced right seventh rib fracture. Finalized by Dalton Zambrano MD on 10/20/2023 8:22 PM Rajni Cardooz DO., [facility] Office: [phone] documented in this encounterUniversity Hospitals Samaritan Medical Center09-04-2024 Miscellaneous Notes* Telephone Encounter - Monica Johnston CMA - 12/30/2023 4:51 PM EDT Pts friend called stated pt needs an order for o2 sent to [facility] fax # [phone] * Telephone Encounter - Rajni Cardozo DO - 12/30/2023 4:51 PM EDT Message noted. Order was written and faxed to [facility] today * Telephone Encounter - Monica Johnston CMA - 12/30/2023 4:51 PM EDT Ok thank you documented in this encounterUniversity Hospitals Samaritan Medical Center09-04-2024 Telephone encounter Note* Telephone Encounter - Monica Johnston CMA - 12/30/2023 4:51 PM EDT Pts friend called stated pt needs an order for o2 sent to [facility] fax # [phone] [facility]09-04-2024 Telephone encounter Note* Telephone Encounter - Rajni Cardozo DO - 12/30/2023 4:51 PM EDT Message noted. Order was written and faxed to [facility] today [facility]09-04-2024 Telephone encounter Note* Telephone Encounter - Monica Johnston CMA - 12/30/2023 4:51 PM EDT Ok thank you [facility]09-03-2024 History of Present illness Narrative* Eusebia Huertas, - 12/29/2023 10:45 AM EDTAssociated Order(s): Trigger Point Injection (CPT 55997 [place] 49148): left gluteus tej Post-Procedure Diagnose(s): Trigger point of left side of body Images from the original note were not included. HISTORY OF PRESENT ILLNESS: Monet Recinos is an 63 y.o. @ female. Chief complaint Thoracic pain Thoracic: Intermittent back pain over the years with flare up thoracic pain 4 months ago (08/24/23) after a fall in [place] [employer] Tx at [facility] ER 08/27 with back pain, DX with compression FX T6 and PE-started on eliquis. Follow up with Dr Cardozo, calcitonin and norco RX. MRI T-spine done at [facility] 09/10/23. She notes pain in thoracic spine is much improved. She is walking unassisted today. She uses walkeras needed. She is complaining of LT sided low back pain x 2-3 weeks. Taking TYL/IBU, no relief. Denies injury.Pain with sit to stand. Pain at HS. Denies radiation. Denies N/T. Injections and nerve blocks yearsago many years ago. Prior treatment: pain clinic years ago, [facility] ER 08/27, MRI T-spine 09/10/23, calcitonin NS, norco MEDICATION: Current Outpatient Medications on File Prior to Visit Medication Sig Dispense Refill acetaminophen (Tylenol) 325 MG tablet Take 325 mg by mouth every 4 (four) hours if needed for mild pain albuterol 0.63 MG/3ML nebulizer solution Take 0.63 mg by nebulization every 6 (six) hours if neededfor wheezing albuterol HFA 90 mcg/act inhaler Inhale 2 puffs every 4 (four) hours if needed for wheezing apixaban (Eliquis) 5 MG tablet Take by mouth ARIPiprazole (Abilify) 15 MG disintegrating tablet Take 15 mg by mouth Daily aspirin 81 MG EC tablet Take 81 mg by mouth Daily atorvastatin (Lipitor) 80 MG tablet Take 80 mg by mouth Daily Rrmwwhs-Hxogdwktwep-Asjyaftonj (Breztri Aerosphere) 160-9-4.8 MCG/ACT aerosol Inhale calcitonin, salmon, (Miacalcin) 200 UNIT/ACT nasal spray Administer 1 spray into affected nostril(s) in the morning. cholecalciferol (Vitamin D-3) 125 MCG (5000 UT) capsule Take 5,000 Units by mouth Daily clonazePAM (KlonoPIN) 0.25 MG disintegrating tablet Take 0.25 mg by mouth 2 (two) times a day as needed for seizures cyclobenzaprine (Fexmid) 7.5 MG tablet TAKE 1 TABLET BY MOUTH TWICE A DAY NEEDED FOR LOWER BACK PAIN 60 tablet 1 cyclobenzaprine (Flexeril) 10 MG tablet Take 5 mg by mouth 3 (three) times a day as needed for muscle spasms diclofenac sodium (Voltaren) 1 % gel Apply 2 g topically in the morning and 2 g in the evening and 2 g before bedtime. doxepin (SINEquan) 75 MG capsule Take 75 mg by mouth at bedtime doxycycline (Vibramycin) 100 MG capsule Take 100 mg by mouth in the morning and 100 mg before bedtime. Take with at least 8 ounces (large glass) of water, do not lie down for 30 minutes after. empagliflozin (Jardiance) 10 MG Take by mouth gabapentin (Neurontin) 100 MG capsule TAKE 2 CAPSULES BY MOUTH 3 TIMES A DAY FOR 30 DAYS 180 capsule 2 lamoTRIgine (LaMICtal) 100 MG tablet Take 100 mg by mouth oxyCODONE (Oxy-IR) 5 MG immediate release capsule Take 5 mg by mouth pantoprazole (ProtoNix) 40 MG EC tablet Take 40 mg by mouth in the morning. Take before meals. Do not crush, chew, or split.. potassium chloride CR (Klor-Con M20) 20 MEQ ER tablet Take 20 mEq by mouth Daily Do not crush or chew. propranolol XL (Innopran XL) 80 MG 24 hr capsule Take 80 mg by mouth at bedtime Do not crush, chew,or split. spironolactone (Aldactone) 25 MG tablet Take 25 mg by mouth Daily SUMAtriptan (Imitrex) 25 MG tablet Take 25 mg by mouth 1 (one) time if needed for migraine May repeat dose once in 2 hours if no relief. Do not exceed 2 doses in 24 hours. topiramate 50 MG tablet Take 50 mg by mouth torsemide (Demadex) 20 MG tablet Take 20 mg by mouth Daily venlafaxine XR (Effexor XR) 150 MG 24 hr capsule Take 150 mg by mouth Daily Do not crush or chew. venlafaxine XR (Effexor XR) 75 MG 24 hr capsule Take 75 mg by mouth Daily Do not crush or chew. No current facility-administered medications on file prior to visit. MEDICAL HISTORY: Past Medical History: Diagnosis Date Agoraphobia ([facility]) Angina at rest ([facility]) Anxiety BiPAP (biphasic positive airway pressure) dependence Bipolar disorder ([facility]) Breast injury CAD (coronary artery disease) ([facility]) Chronic kidney disease Congestive heart failure (CHF) ([facility]) COPD (chronic obstructive pulmonary disease) ([facility]) Dementia ([facility]) Depression ([facility]) GERD (gastroesophageal reflux disease) Liver disease Memory loss Myocardial infarction ([facility]) BONY (obstructive sleep apnea) Osteoarthritis Panic disorder ([facility]) Psoriasis ([facility]) PTSD (post-traumatic stress disorder) ([facility]) Shortness of breath Visual impairment ALLERGIES: Allergies Allergen Reactions Penicillins Anaphylaxis Other Reaction(s): Swelling of Lip/Tongue/Throat Morphine VITALS: Visit Vitals Smoking Status Former PHYSICAL EXAM: Ortho Exam Patient has tenderness over the left SI region. There is no tenderness over the midline lumbar spine. There is no tenderness over the thoracic spine. There are no pair vertebral muscle spasms. She ambulates with a forward flexed posture. IMAGING: XR spine Imaging Result: Lateral lumbar and thoracic spine x-rays demonstrate to wedge deformities in the thoracic region both of them with a proximally 50 percent collapse. Estimated levels are T6 and T8. Impression: Stable appearance of compression fractures at T6 and T8 no new fractures Cipriano Huertas D.O. ASSESSMENT: ICD-10-CM 1. Trigger point of left side of body M79.10 Trigger Point Injection (CP[place] 18331 [place] 75919): left gluteus tej 2. Compression fracture of T6 vertebra with routine healing, subsequent encounter S22.050D XR spine 3. Compression fracture of T8 vertebra with routine healing, subsequent encounter S22.060D 4. Osteoporotic compression fracture of vertebra with routine healing, subsequent encounter M80.88XD Trigger Point Injection (CPT 13031 or 61938): left gluteus tej on 12/29/2023 2:58 PM Indications: pain Details: 21 G needle Medications: 40 mg methylPREDNISolone acetate 40 MG/ML Outcome: tolerated well, no immediate complications Procedure, treatment alternatives, risks and benefits explained, specific risks discussed. PLAN: We discussed treatment options. I advised the patient of risks associated with an injection including a reaction to medication, infection, failure to improve and possible worsening. The patient demonstrated understanding. Patient requesting injection. Skin Cleansed with alcohol swab. Utilizing aseptic technique, the left SI region/trigger point was injected with 40 mg of Depo- Medrol. Patient tolerated this well. Neurovasc intact s/p injection. Post injection care instructions discussed. Follow up in 2-3 weeks, any issues/concerns follow up sooner. Dr. Huertas obtained history and examined t he patient, I am acting as scribe for Dr. Huertas/guido Huertas D.O. documented in this encounterExcelsior Springs Medical [id number] Miscellaneous Notes* Telephone Encounter - Monica JohnstonELIAN - 12/24/2023 4:07 PM EDT Called pt to let her know she needed to call her neuro for the refill , friend called back I let her know about the refill , while she had me on the phone she stated that pts o2 stats keep dropping ,she is on o2 now @ 3 L , when she did the sleep study they didn't didn't let her use O2 , they talked about doing another one with o2 , friend has the bypap machine already , she said long story theyneed an order for [employer] , pts insurnace doesn't cover [employer] So they have to send everything back * Telephone Encounter - Rajni Cardozo DO - 12/24/2023 4:07 PM EDT Message noted. I spoke with Norma Chance by phone today. Patient had insurance change, and therefore her DME supplier changed. No longer [employer], now has to [employer]. This is in regards to her oxygen equipment and supplies. The CPAP equipment [facility] by [facility] She gave me the phone number to [employer]: . Please call them to have them either fax us a O2 equipment order for me to complete, or get their fax number so I can send a new order for the oxygen equipment * Telephone Encounter - Tosin Reyes CMA - 12/24/2023 4:07 PM EDT There are 2 different number to contact for her. The CPAP is [phone] but they emailed me what they need for referral process. The [facility] [employer] and left them a message to fax something for the referral. * Telephone Encounter - Rajni Cardozo DO - 12/24/2023 4:07 PM EDT Message noted. The CPAP number does not concern me, that is for the sleep clinic to handle However, I still have not received anything from [employer] documented in this encounterUniversity Hospitals Samar[facility] Center08-29-2024 Telephone encounter Note* Telephone Encounter - Monica Johnston CMA - 12/24/2023 4:07 PM EDT Called pt to let her know she needed to call her neuro for the refill , friend called back I let her know about the refill , while she had me on the phone she stated that pts o2 stats keep dropping ,she is on o2 now @ 3 L , when she did the sleep study they didn't didn't let her use O2 , they talked about doing another one with o2 , friend has the bypap machine already , she said long story theyneed an order for [employer] , pts insurnace doesn't cover [employer] So they have to send everything back [facility]08-29-2024 Telephone encounter Note* Telephone Encounter - Rajni Cardozo DO - 12/24/2023 4:07 PM EDT Message noted. I spoke with Norma Chance by phone today. Patient had insurance change, and therefore her DME supplier changed. No longer [employer], now has to [employer]. This is in regards to her oxygen equipment and supplies. The CPAP equipment is handled by the [facility] She gave me the phone number to [employer]: . Please call them to have them either fax us a O2 equipment order for me to complete, or get their fax number so I can send a new order for the oxygen equipment [facility]08-29-2024 Telephone encounter Note* Telephone Encounter - Tosin Reyes CMA - 12/24/2023 4:07 PM EDT There are 2 different number to contact for her. The CPAP is [phone] but they emailed me what they need for referral process. The oxygen is through the [facility] through [facility] and left them a message to fax something for the referral. [facility]08-29-2024 Telephone encounter Note* Telephone Encounter - Rajni Cardozo DO - 12/24/2023 4:07 PM EDT Message noted. The CPAP number does not concern me, that is for the sleep clinic to handle However, I still have not received anything from [facility]08-22-2024 Miscellaneous Notes* Telephone Encounter - Johnna Cortes - 12/17/2023 10:37 AM EDT Received call from Tung at sleep lab that [facility] called there stating pt does not qualify for thecontinuous Oxygen to be bled in with PAP. Will set up with PAP only. Per Dr Meadows, pt's November appt needs to be moved up for new face to face and repeat home O2 eval. Routed to Maryellen to schedule.Spoke to Concepcion at [facility] to inform will be retesting pt in order to try to qualify her for the oxygen. * Telephone Encounter - GLORIA Scott - 12/17/2023 10:37 AM EDT Kymberly called patient and moved patient's from February to 01/14/2024 at 3pm with SE in the [place] office. * Telephone Encounter - Johnna Cortes - 12/17/2023 10:37 AM EDT Thanks documented in this encounterUniversity Hospitals Samaritan Medical Center08-22-2024 Miscellaneous Notes* Telephone Encounter - Tosin Reyes CMA - 12/17/2023 10:37 AM EDT Patient called and O2 dropped to 70's overnight and now she can barely keep it up to 90. I directedher to the ER. * Telephone Encounter - Rajni Cardozo DO - 12/17/2023 10:37 AM EDT Message noted. I agree documented in this encounterUniversity Hospitals Samaritan Medical Center08-22-2024 Telephone encounter Note* Telephone Encounter - Johnna Cortes - 12/17/2023 10:37 AM EDT Received call from Tung at sleep lab that [facility] called there stating pt does not qualify for thecontinuous Oxygen to be bled in with PAP. Will set up with PAP only. Per Dr Meadows, pt's November appt needs to be moved up for new face to face and repeat home O2 eval. Routed to Maryellen to schedule.Spoke to Concepcion at [facility] to inform will be retesting pt in order to try to qualify her for the oxygen. [facility]08-22-2024 Telephone encounter Note* Telephone Encounter - GLORIA Scott - 12/17/2023 10:37 AM EDT Kymberly called patient and moved patient's from February to 01/14/2024 at 3pm with SE in the [place] office. [facility]08-22-2024 Telephone encounter Note* Telephone Encounter - Johnna Cortes - 12/17/2023 10:37 AM EDT Thanks [facility]08-22-2024 Telephone encounter Note* Telephone Encounter - Tosin Reyes CMA - 12/17/2023 10:37 AM EDT Patient called and O2 dropped to 70's overnight and now she can barely keep it up to 90. I directedher to the ER. [facility]08-22-2024 Telephone encounter Note* Telephone Encounter - Rajni Cardozo DO - 12/17/2023 10:37 AM EDT Message noted. I agree [facility]08-20-2024 Miscellaneous Notes* Telephone Encounter - Johnna Cortes - 12/15/2023 1:43 PM EDT Message received from Vicki at [facility] that OON for PAP/ O2. Pt must use [employer] (fax number is location specific). Spoke to Ciarra at [facility] and for pt zip, she must use [place] location. Faxed all info to [phone] for setup with BiPAP and O2. Pt notified via phone/ my chart message also sent. Phnumber of [phone] also given to pt. documented in this encounterUniversity Hospitals Samaritan Medical Center08-20-2024 Telephone encounter Note* Telephone Encounter - Johnna Cortes - 12/15/2023 1:43 PM EDT Message received from Vicki at [facility] that OON for PAP/ O2. Pt must use [employer] (fax number is location specific). Spoke to Ciarra at [facility] and for pt zip, she must use [place] location. Faxed all info to [phone] for setup with BiPAP and O2. Pt notified via phone/ my chart message also sent. Phnumber of [phone] also given to pt. [facility]2024 Miscellaneous Notes* Telephone Encounter - Kaia Jovel MD - 12/10/2023 10:23 AM EDT Patient of Dr. Meadows, CelinaAP 14/9 cm of water with 3L/min supplement oxygen recommended, order formcomplete in [facility], please fax Results note sent to patient Titration study on 12/08/2023 (Liqbhj=090.0 lbs; BMI=35.3 kg/m2) DIAGNOSIS: Obstructive Sleep Apnea (G47.33) Sleep Related Hypoxemia - ICD code G47.36 Periodic Limb Movements of Sleep - ICD Code R25.9 COMMENTS: This titration was performed with a wedge cushion. The study was started without supplemental oxygen. The patient is currently prescribed supplemental oxygen 2 L/min to be used to continuously. Oxygen was quickly initiated for hypoxemia in wakefulness (oxygen saturations 88% or less for over 5 minutes) and sleep. Supplemental oxygen was titrated to 3 L/min to maintain baseline oxygen saturations above 88%. There was no sleep related hypoventilation on transcutaneous CO2 monitoring. CPAP settings of 4-6 cm of water were tested however, the patient did not tolerate CPAP and BiPAP was initiated. Of the tested settings, a BiPAP setting of 13/8 cm of water best treated this patient's obstructive sleep apnea and was tested in supine and lateral NREM sleep. There were occasional obstructive hypopneas at this setting however. Oxygen saturations were in the low 90s. There were frequent periodic leg movements noted throughout. Clinical correlation advised. A BiPAP setting of 14/9 cm of water with 3L/min supplemental oxygen bled in is recommended for homeuse. The patient should continue to sleep with torso elevated such as on a wedge cushion. documented in this encounterThe Surgical Hospital at SouthwoodsJumpStart Wireless Corporation08-15-2024 Telephone encounter Note* Telephone Encounter - Kaia Jovel MD - 12/10/2023 10:23 AM EDT Patient of Dr. Dori, BiPAP 14/9 cm of water with 3L/min supplement oxygen recommended, order formcomplete in [employer], please fax Results note sent to patient Titration study on 12/08/2023 (Kbklej=326.0 lbs; BMI=35.3 kg/m2) DIAGNOSIS: Obstructive Sleep Apnea (G47.33) Sleep Related Hypoxemia - ICD code G47.36 Periodic Limb Movements of Sleep - ICD Code R25.9 COMMENTS: This titration was performed with a wedge cushion. The study was started without supplemental oxygen. The patient is currently prescribed supplemental oxygen 2 L/min to be used to continuously. Oxygen was quickly initiated for hypoxemia in wakefulness (oxygen saturations 88% or less for over 5 minutes) and sleep. Supplemental oxygen was titrated to 3 L/min to maintain baseline oxygen saturations above 88%. There was no sleep related hypoventilation on transcutaneous CO2 monitoring. CPAP settings of 4-6 cm of water were tested however, the patient did not tolerate CPAP and BiPAP was initiated. Of the tested settings, a BiPAP setting of 13/8 cm of water best treated this patient's obstructive sleep apnea and was tested in supine and lateral NREM sleep. There were occasional obstructive hypopneas at this setting however. Oxygen saturations were in the low 90s. There were frequent periodic leg movements noted throughout. Clinical correlation advised. A BiPAP setting of 14/9 cm of water with 3L/min supplemental oxygen bled in is recommended for homeuse. The patient should continue to sleep with torso elevated such as on a wedge cushion. [employer] Work Phone: [phone] 832-458207-25-2024 Miscellaneous Notes* Telephone Encounter - Tosin Reyes CMA - 11/19/2023 4:56 PM EDT Patient has been getting shoulder injections thru Dr. Castro and [facility] * Telephone Encounter - Rajni Cardozo DO - 11/19/2023 4:56 PM EDT Message noted. Who is looking for the referral? If she is already getting injections, why does she need a new referral? * Telephone Encounter - Tosin Reyes CMA - 11/19/2023 4:56 PM EDT She has switched insurance and so they need a referral to Dr. Castro. * Telephone Encounter - Rajni Cardozo DO - 11/19/2023 4:56 PM EDT Message noted. I do not know what or why she is getting the injections for. I have not received any reports or feedback from Dr. Castro, therefore I am unable to make a referral. * Telephone Encounter - Tosin Reyes CMA - 11/19/2023 4:56 PM EDT Patient notified documented in this encounterUniversity Hospitals Samaritan Medical Center07-25-2024 Telephone encounter Note* Telephone Encounter - Tosin Reyse CMA - 11/19/2023 4:56 PM EDT Patient has been getting shoulder injections thru Dr. Castro and now they are asking for a referral toortho. [facility]07-25-2024 Telephone encounter Note* Telephone Encounter - Rajni Cardozo DO - 11/19/2023 4:56 PM EDT Message noted. Who is looking for the referral? If she is already getting injections, why does she need a new referral? [facility]07-25-2024 Telephone encounter Note* Telephone Encounter - Tosin Reyes CMA - 11/19/2023 4:56 PM EDT She has switched insurance and so they need a referral to Dr. Castro. [facility] [facility]24 Telephone encounter Note* Telephone Encounter - Rajni Cardozo DO - 11/19/2023 4:56 PM EDT Message noted. I do not know what or why she is getting the injections for. I have not received any reports or feedback from Dr. Castro, therefore I am unable to make a referral. [facility]07-25-2024 Telephone encounter Note* Telephone Encounter - Tosin Reeys CMA - 11/19/2023 4:56 PM EDT Patient notified [facility]07-08-2024 History of Present illness Narrative* Rajni Cardozo DO - 11/02/2023 3:30 PM EDT IM PROGRESS NOTE Patient - Monet Dhillon Cool Age - 63 y[facility] 1960 [id number] ASSESSMENT & PLAN 1. Venous insufficiency of both lower extremities -secondary to chronic diastolic heart failure, in conjunction with extended dependent positioning of the legs -is on maximum dose diuretics with torsemide 80-120 mg daily -at this time I advised the patient to elevate her legs 30-40 minutes every morning and afternoon, as well as at nighttime -will order zippered compression stockings through [employer] to allow her to be more independent and active when not elevating her legs. - Jobst Compression Stockings, 20-30 Knee High ( at [employer] ) -consider change from gabapentin to Lyrica to help with edema control 2. Chronic heart failure with preserved ejection fraction (CMS-HCC) -is on very high doses of loop diuretic, along with spironolactone. -repeat metabolic panel, magnesium and CBC -may need to make adjustments to diuretic dosing -she is still waiting her sleep study to evaluate CPAP therapy -in the meantime, continue oxygen 2 L/minute nasal cannula while sleeping - CBC auto differential; Future - Basic Metabolic Panel; Future - Magnesium; Future 3. Acute pulmonary embolism without acute cor pulmonale, unspecified pulmonary embolism type ([facility]) -has completed 2/3 months of anticoagulation -may discontinue Eliquis 5 mg b.i.d. after current prescription is completed -will restart aspirin at that time 4. B12 deficiency -previously checked and was low normal -currently taking cyanocobalamin replacement therapy -repeat B12 level - Vitamin B12; Future Subjective 63-year-old female presents for recheck visit on several medical conditions including: -leg edema. Leg edema persists, although various through the day. Generally is fairly well controlled when she wakes in the morning, but gradually worsens throughout the day. By the end of the day, she will get some draining areas of clear, watery fluid. She has not currently wearing compression stockings. She does not elevate her legs during the day. -she is prescribed torsemide 80 mg daily, with an additional 40 mg Thursday and Thursday. Shemay actually be taking a higher dose than this. In addition, she is on spironolactone 25 mg daily. -her chronic diastolic heart failure has not been bothering her. She has not having any orthopnea, or palpitations. She has lost 23 lb since last visit. -she is still taking gabapentin 200 mg 3 times daily. Still bothered by peripheral neuropathy. She is taking her B12 supplement daily. -she is completed 2 months of Eliquis 5 mg b.i.d. for an acute PE 2 months ago. She has not having any bruising or bleeding with Eliquis. She has not having any chest pain or dyspnea. -her compression fracture in the thoracic spine is improving. Does not bother her upon waking in the morning, but as her back gets tired , usually after about 6-7 hours of activity, the pain will start. She currently is taking Tylenol 3 or 4 times daily for pain, along with Miacalcin nasal spray, and Voltaren gel 2- 3 times a day. No longer taking [place]. Did see Orthopedic surgery in follow-up, and it was felt that healing was as expected, and no kyphoplasty is recommended at this time. A review of systems was negative except for the following: General: weight loss Psychiatric: concentration difficulties, memory difficulties, and is on chronic treatment for her bipolar disorder. Overall has been stable. Cardiovascular: edema Neurological: numbness/tingling and noted bilaterally lower extremities.. Exam BP 114/70 (BP Site: Right Arm, BP Postition: Sitting) Pulse 83 Temp 36.6 C (97.9 F) (Oral) Ht175.3 cm (5' 9 ) Wt 109.8 kg (242 lb) SpO2 96% BMI 35.74 kg/m Physical Exam Vitals reviewed. Exam conducted with a senior research project manager present (Friend/POA). Constitutional: General: She is not in acute distress. Appearance: She is well-developed. She is obese. She is not toxic-appearing. HENT: Head: Normocephalic. Right Ear: External ear normal. Left Ear: External ear normal. Nose: Nose normal. Mouth/Throat: Mouth: Mucous membranes are moist. Eyes: General: No scleral icterus. Neck: Vascular: No carotid bruit. Cardiovascular: Rate and Rhythm: Normal rate. Pulses: Normal pulses. Heart sounds: No murmur heard. No gallop. Comments: Heart tones distant Pulmonary: Effort: Pulmonary effort is normal. Breath sounds: No wheezing or rales. Abdominal: Palpations: Abdomen is soft. Musculoskeletal: General: No tenderness. Cervical back: Neck supple. Right lower leg: Edema (2+ to below the knee) present. Left lower leg: Edema (2 + to below the knee) present. Lymphadenopathy: Cervical: No cervical adenopathy. Skin: General: Skin is warm and dry. Coloration: Skin is not jaundiced. Findings: No bruising. Neurological: Mental Status: She is alert and oriented to person, place, and time. Sensory: No sensory deficit (Intact vibratory sensation bilateral feet and ankles). Gait: Gait (Walking without any assistive device. Able to climb onto exam table) normal. Deep Tendon Reflexes: Reflexes are normal [...] albuterol (PROVENTIL HFA;VENTOLIN HFA) 90 mcg/actuation inhaler, INHALE 2 PUFF BY MOUTH AND INTO THE LUNGS EVERY 4-6 HOURS NEEDED FOR BREATHING ISSUES FOR 17 DAYS for 17, Disp: , Rfl: apixaban (ELIQUIS) 5 mg tablet, Take 1 tablet (5 mg total) by mouth in the morning and 1 tablet (5 mg total) before bedtime., Disp: 120 tablet, Rfl: 0 ARIPiprazole (ABILIFY) 15 mg tablet, TAKE 1 TABLET BY MOUTH EVERYDAY AT BEDTIME, Disp: , Rfl: atorvastatin (LIPITOR) 80 mg tablet, TAKE 1 TABLET (80 MG TOTAL) BY MOUTH IN THE MORNING, Disp: 90 tablet, Rfl: 3 hifxazoovx-oidtqumi-fowlrrrcda (BREZTRI AEROSPHERE) 160-9-4.8 mcg/actuation HFA aerosol inhaler, Inhale 2 puffs in the morning and 2 puffs before bedtime., Disp: 10.7 g, Rfl: 10 calcitonin, salmon, (MIACALCIN) 200 unit/actuation nasal spray, Administer 1 spray into alternatingnostrils in the morning., Disp: 3.7 mL, Rfl: 12 cholecalciferol, vitamin D3, 5,000 units tablet, Take 2 tablets (10,000 Units total) by mouth in the morning., Disp: , Rfl: clonazePAM (KlonoPIN) 0.5 mg tablet, TAKE 1 TABLET BY MOUTH TWICE A DAY, Disp: , Rfl: cyanocobalamin (vitamin B-12) 1000 MCG tablet, Take 1 tablet (1,000 mcg total) by mouth in the morning., Disp: 90 tablet, Rfl: 1 cyclobenzaprine (FEXMID) 7.5 MG tablet, Take 1 tablet (7.5 mg total) by mouth 2 (two) times a day as needed., Disp: , Rfl: diclofenac sodium (VOLTAREN) 1 % gel, Apply 2 g topically in the morning and 2 g at noon and 2 g inthe evening and 2 g before bedtime., Disp: 100 g, Rfl: 2 doxepin (SINEquan) 75 mg capsule, 1 capsule at bedtime Orally Once a day, Disp: , Rfl: gabapentin (NEURONTIN) 100 mg capsule, Take 2 capsules (200 mg total) by mouth 3 (three) times a day., Disp: , Rfl: JARDIANCE 10 mg tablet tablet, TAKE 1 TABLET (10 MG TOTAL) BY MOUTH IN THE MORNING, Disp: 90 tablet, Rfl: 3 lamoTRIgine (LaMICtal) 150 mg tablet, TAKE 1 TABLET BY MOUTH EVERY DAY, Disp: , Rfl: pantoprazole (PROTONIX) 40 mg EC tablet, Take 1 tablet (40 mg total) by mouth every morning before breakfast., Disp: 90 tablet, Rfl: 1 potassium chloride (KLOR-CON M 20) 20 MEQ CR tablet, Take 1 tablet (20 mEq total) by mouth in the morning., Disp: , Rfl: propranolol LA (INDERAL LA) 80 mg 24 hr capsule, Take 1 capsule (80 mg total) by mouth in the morning., Disp: , Rfl: spironolactone (ALDACTONE) 25 mg tablet, TAKE 1 TABLET (25 MG TOTAL) BY MOUTH IN THE MORNING, Disp:90 tablet, Rfl: 3 SUMAtriptan (IMITREX) 50 mg tablet, TAKE 1 TABLET BY MOUTH NEEDED WAIT AT LEAST 2 HOURS BETWEEN DOSES, Disp: , Rfl: topiramate (TOPAMAX) 50 mg tablet, take 1 tablet by mouth twice a day for 90 days, Disp: 180 tablet, Rfl: 0 torsemide 40 mg tablet, Take 80 mg by mouth daily., Disp: , Rfl: venlafaxine XR (EFFEXOR XR) 75 mg 24 hr capsule, TAKE 1 CAPSULE BY MOUTH EVERY DAY IN THE MORNING, Disp: , Rfl: venlafaxine XR (EFFEXOR-XR) 150 mg 24 hr capsule, Take 225 mg by mouth in the morning., Disp: , Rfl: Lab Results No visits with results within 1 Month(s) from this visit. Latest known visit with results is: Hospital Outpatient Visit on 09/30/2023 Component Date Value Ref Range Status TSH 09/30/2023 0.11 (L) 0.49 - 4.67 uIU/mL Final T4, free 09/30/2023 1.19 0.61 - 1.60 ng/dL Final Vitamin B-12 09/30/2023 204 180 - 914 pg/mL Final White Blood Cells 09/30/2023 7.2 4.0 - 11.0 X10E9/L Final RBC count 09/30/2023 4.19 3.80 - 5.20 X10E12/L Final Hemoglobin 09/30/2023 11.3 (L) 11.7 - 15.5 g/dL Final Hematocrit 09/30/2023 35.1 35 - 47 % Final MCV 09/30/2023 84 80 - 100 fL Final MCH 09/30/2023 27.0 27 - 34 pg Final MCHC 09/30/2023 32.2 32 - 36 g/dL Final RDW 09/30/2023 16.2 (H) 11.5 - 15.0 % Final Platelets 09/30/2023 380 150 - 450 X10E9/L Final MPV 09/30/2023 8.1 7 - 12 fL Final % neutrophils 09/30/2023 81.6 % Final % lymphocytes 09/30/2023 15.7 % Final % monocytes 09/30/2023 2.3 % Final % eosinophils 09/30/2023 0.0 % Final % Basophils 09/30/2023 0.4 % Final Neutrophils Absolute (A) 09/30/2023 5.8 1.5 - 6.6 X10E9/L Final Lymphocytes Absolute 09/30/2023 1.1 1.0 - 3.5 X10E9/L Final Monocytes Absolute 09/30/2023 0.2 0 - 0.9 X10E9/L Final Eosinophils Absolute 09/30/2023 0.0 0.0 - 0.4 X10E9/L Final Basophils Absolute 09/30/2023 0.0 0.0 - 0.2 X10E9/L Final Sodium 09/30/2023 145 134 - 146 mmol/L Final Potassium, Bld 09/30/2023 3.9 3.5 - 5.0 mmol/L Final Chloride 09/30/2023 104 98 - 109 mmol/L Final CO2 09/30/2023 27 22 - 32 mmol/L Final Anion gap 09/30/2023 14 5 - 15 mmol/L Final BUN 09/30/2023 36 (H) 5 - 27 mg/dL Final Creatinine 09/30/2023 1.85 (H) 0.40 - 1.00 mg/dL Final Glucose 09/30/2023 128 (H) 65 - 99 mg/dL Final Calcium 09/30/2023 9.4 8.5 - 10.5 mg/dL Final eGFR (CKD-EPI)non-race dependent 09/30/2023 31 (L) >59 ml/min/1.73sq.m Final Other Testing X-ray chest 1 view Result Date: 10/20/2023 Portal chest: HISTORY: Pain. Single view the chest was obtained and compared to prior exam of 09/24/2023. Cardiac and mediastinal contours are stable. There is right basilar atelectasis or scarring. No pneumothorax is seen. No new consolidation is identified. There is a fracture the right seventh rib which was not visualized previously. IMPRESSION: Mildly displaced right seventh rib fracture. Finalized by Dalton Zambrano MD on 10/20/2023 8:22 PM X-ray chest 2 views Result Date: 09/24/2023 Clinical history: Community-acquired pneumonia. Acute changes and breath sounds. Productive sputum.Shortness of breath and chest congestion. Comparisons: 05/27/2023 through 09/19/2023. CT chest 09/10/2023 Findings: 2 views of the chest obtained. Heart size and mediastinal configuration appear within normal limits and unchanged. Right basilar pulmonary parenchymal scarring is unchanged. Patient is rotated to the right. There is some minimal subsegmental atelectasis in the left lower lobe. No focalpulmonary parenchymal consolidation. No definite pleural effusion. No pneumothorax. Changes of prior cardiac surgery again seen. Left breast peripherally calcified lesion again seen similar to recentCT scan. This likely represents fat necrosis. IMPRESSION: Stable chronic findings in the chest as above. No evidence for acute superimposed cardiopulmonary disease. Finalized by Tristen Neely MD on 09/24/2023 11:13 PM X-ray chest 1 view Result Date: 09/19/2023 Single view chest History: Difficulty breathing, shortness of breath. Comparison: 07/25/2023 Findings: Median sternotomy. Stable cardiac distal silhouette. The sclerotic aorta. Linear bibasilar scarring and/or atelectasis. No significant effusion or progressive focal consolidation. No pneumothorax. I mpression: Bibasilar atelectasis/scarring. No convincing acute cardiopulmonary process otherwise Finalized by Victor Hugo Gustafson MD on 09/19/2023 12:42 AM Rajni Cardozo DO., [facility] Office: [phone] documented in this [facility]07-05-2024 Miscellaneous Notes* Telephone Encounter - Nuha Nichole RN - 10/30/2023 7:30 AM EDT OV 08/03/23 BMP 09/30/23 [facility] Telephone encounter Note* Telephone Encounter - Nuha Nichole RN - 10/30/2023 7:30 AM EDT OV 08/03/23 BMP 09/30/23 [facility]06-12-2024 Miscellaneous Notes* Telephone Encounter - Daisha Marquez CMA - 10/07/2023 3:08 PM EDT ----- Message from Victor Hugo Vincent DO sent at 10/06/2023 11:58 AM EDT ----- Call and let her know that her ultrasound and mammogram were normal. If she still has problems she should come back to see me. Thanks, Dr. Cornell documented in this [facility]06-12-2024 Telephone encounter Note* Telephone Encounter - Daisha Marquez CMA - 10/07/2023 3:08 PM EDT ----- Message from Victor Hugo Vincent DO sent at 10/06/2023 11:58 AM EDT ----- Call and let her know that her ultrasound and mammogram were normal. If she still has problems she should come back to see me. Thanks, Dr. Cornell [facility]06-07-2024 Miscellaneous Notes* Telephone Encounter - Nuha Nichole RN - 10/02/2023 12:38 AM EDT OV 08/03/23 BMP 09/30/23 documented in this encounterUniversity [facility] Telephone encounter Note* Telephone Encounter - Nuha Nichole RN - 10/02/2023 12:38 AM EDT OV 08/03/23 BMP 09/30/23 [facility]06-05-2024 History of Present illness Narrative* Rajni Cardozo DO - 09/30/2023 1:30 PM EDT IM PROGRESS NOTE Patient - Monet Recinos Age - 63 y[facility] 1960 [id number] ASSESSMENT & PLAN 1. Closed wedge compression fracture of T6 vertebra with routine healing -reviewed orthopedic consult note with the patient, along with recommendations and goals of treatment -patient advised she cannot use ibuprofen, or any NSAID at the current time for her pain because ofher anticoagulation. -therefore, we will continue the [place] 5-325 b.i.d. pain relief longer than anticipated -she has follow-up with Orthopedic surgery in several weeks, and if still has pain, may need to consider a kyphoplasty. -this could be accomplished by switching her to Lovenox for anticoagulation in the perioperative time 2. Acute pulmonary embolism without acute cor pulmonale, unspecified pulmonary embolism type ([facility]) -patient once again advised she needs to continue 3 months of anticoagulation as minimal treatment. -refill of Eliquis 5 mg b.i.d. for another 2 months was made today. - apixaban (ELIQUIS) 5 mg tablet; Take 1 tablet (5 mg total) by mouth in the morning and 1 tablet (5 mg total) before bedtime. Dispense: 120 tablet; Refill: 0 3. Venous insufficiency of both lower extremities -I suspect this is a multifactorial problem which is acutely worsened because of the high doses of NSAID she is using. -she was advised to stop the ibuprofen and avoid any other NSAIDs -contributing factors include her pulmonary hypertension and chronic diastolic heart failure -BNP has been normal. -continue torsemide 80 mg daily -patient advised she needs to wear compression stockings daily basis and may remove at nighttime -needs 20-30 mmHg compression -Rx for zippered compression stockings given to patient - [employer] Compression Stockings, 20-30 Knee High ( at [employer] ) 4. Chronic respiratory failure with hypoxia and hypercapnia ([facility]) -continue oxygen support nocturnally and during the day as needed -continue Breztri 2 daily - CBC auto differential; Future 5. Chronic heart failure with preserved ejection fraction ([facility]) -current GDMT includes Jardiance 10 mg daily, propranolol 80 mg LA daily, spironolactone 25 mg daily torsemide 80 mg daily - Basic Metabolic Panel; Future - Thyroid profile includes TSH FT4; Future 6. Spinal stenosis of lumbar region with neurogenic claudication -overall her walking appears to be improved -continue home PT 7. Peripheral polyneuropathy -symptoms and lower extremity cannot be explained by lumbar radiculopathy -initiate workup metabolic causes including vitamin deficiencies, paraproteinemia, thyroid dysfunction. 8. B12 deficiency -check for underlying vitamin deficiencies as cause of - Vitamin B12; Future Subjective 63-year-old female presents for follow-up on multiple medical problems includin. Compression fractures in the thoracic spine. Currently taking salmon calcitonin nasal spray, cyclobenzaprine, and [place] 5-325 b.i.d. the pain is improved from initial, but still present on a dailybasis associated with leaning against her back, or prolonged walking or standing. She was seen by Orthopedic surgery regarding cough, but continued conservative treatment was recommended especially in light her current anticoagulation status. She is taking [id number] mg ibuprofen daily try and help her pain. 2. Acute segmental pulmonary embolus. Currently on apixaban 5 mg b.i.d.. Has had no problems with bleeding, but has had some bruising. No problems with shortness of breath. It had a venous Doppler which showed no evidence DVT. 3. Has been having increased swelling in both legs. Is present all day long, worsened slightly through the day. Not currently wearing compression stockings. She does try elevating her legs. Has been to the emergency room and in this office several times because of the problem. Her BNP obtain both times was in the normal range. Chest x-ray was unremarkable. She is taking extremely high doses of ibuprofen as above. 4. Leg pain. Does continue to receive PT to her low back for her lumbar spinal stenosis. Has been able to increase the duration she is using a walker. However the same time, has started noticing a tingling sensation in her distal lower extremities. Has fallen several times because she is tripped. She is wearing flip-flops as her footwear currently. A review of systems was negative except for the following: General: fatigue and weight loss Psychiatric: depression and mood swings Respiratory: Does have oxygen to wear at nighttime and with activity. Her sleep is not scheduled until November. Cardiovascular: edema and noted bilateral lower extremities Musculoskeletal: gait disturbance, joint pain, joint stiffness, and noted in low back and hips, as well as her thoracic spine Neurological: numbness/tingling. Exam BP 110/60 (BP Site: Left Arm, BP Postition: Sitting) Pulse 82 Temp 37.1 C (98.8 F) (Oral) Resp 18 Ht 175.3 cm (5' 9 ) Wt 110.5 kg (243 lb 11.2 oz) SpO2 93% BMI 35.99 kg/m Physical Exam Vitals reviewed. Exam conducted with a senior research project manager present (Friend/POA). Constitutional: General: She is not in acute distress. Appearance: She is well-developed. She is obese. She is not toxic-appearing. HENT: Head: Normocephalic. Right Ear: External ear normal. Left Ear: External ear normal. Nose: Nose normal. Mouth/Throat: Mouth: Mucous membranes are moist. Eyes: General: No scleral icterus. Neck: Vascular: No carotid bruit. Cardiovascular: Rate and Rhythm: Normal rate. Pulses: Normal pulses. Heart sounds: No murmur heard. No gallop. Comments: Heart tones distant Pulmonary: Effort: Pulmonary effort is normal. Breath sounds: No wheezing or rales. Abdominal: Palpations: Abdomen is soft. Musculoskeletal: General: Tenderness (Upper thoracic area posterior, right more than left. Upper sternal border on the right. Noted with palpation, or deep inspiration) present. Cervical back: Neck supple. Right lower leg: No edema (2+). Left lower leg: No edema (2 +). Lymphadenopathy: Cervical: No cervical adenopathy. Skin: General: Skin is warm and dry. Coloration: Skin is not jaundiced. Findings: No bruising. Neurological: Mental Status: She is alert and oriented to person, place, and time. Sensory: No sensory deficit (Intact vibratory sensation bilateral feet and ankles). Motor: Weakness (Hip flexors: 4/5 bilateral. Knee extensor: 3/5 bilateral. Knee flexor: 4/5 bilateral. Ankle dorsiflexion: 4/5 bilateral.) present. Gait: Gait abnormal (Using a rolling walker. Able to climb onto exam table). Deep Tendon Reflexes: Reflexes are normal and [...] albuterol (PROVENTIL HFA;VENTOLIN HFA) 90 mcg/actuation inhaler, INHALE 2 PUFF BY MOUTH AND INTO THE LUNGS EVERY 4-6 HOURS NEEDED FOR BREATHING ISSUES FOR 17 DAYS for 17, Disp: , Rfl: ARIPiprazole (ABILIFY) 15 mg tablet, TAKE 1 TABLET BY MOUTH EVERYDAY AT BEDTIME, Disp: , Rfl: aspirin 81 mg, Take 1 tablet (81 mg total) by mouth in the morning., Disp: , Rfl: atorvastatin (LIPITOR) 80 mg tablet, TAKE 1 TABLET (80 MG TOTAL) BY MOUTH IN THE MORNING, Disp: 90 tablet, Rfl: 3 ozfggxzxxh-wduzujco-unidszcfah (BREZTRI AEROSPHERE) 160-9-4.8 mcg/actuation HFA aerosol inhaler, Inhale 2 puffs in the morning and 2 puffs before bedtime., Disp: 10.7 g, Rfl: 10 calcitonin, salmon, (MIACALCIN) 200 unit/actuation nasal spray, Administer 1 spray into alternatingnostrils in the morning., Disp: 3.7 mL, Rfl: 12 cholecalciferol, vitamin D3, 5,000 units tablet, Take 2 tablets (10,000 Units total) by mouth in the morning., Disp: , Rfl: clindamycin (CLEOCIN) 150 mg capsule, Take 1 capsule (150 mg total) by mouth 3 (three) times a day., Disp: , Rfl: clonazePAM (KlonoPIN) 0.5 mg tablet, TAKE 1 TABLET BY MOUTH TWICE A DAY, Disp: , Rfl: cyclobenzaprine (FEXMID) 7.5 MG tablet, Take 1 tablet (7.5 mg total) by mouth 2 (two) times a day as needed., Disp: , Rfl: diclofenac sodium (VOLTAREN) 1 % gel, Apply 2 g topically in the morning and 2 g at noon and 2 g inthe evening and 2 g before bedtime., Disp: 100 g, Rfl: 2 doxepin (SINEquan) 75 mg capsule, 1 capsule at bedtime Orally Once a day, Disp: , Rfl: empagliflozin (JARDIANCE) 10 mg tablet tablet, Take 1 tablet (10 mg total) by mouth in the morning., Disp: 30 tablet, Rfl: 11 gabapentin (NEURONTIN) 100 mg capsule, Take 2 capsules (200 mg total) by mouth 3 (three) times a day., Disp: , Rfl: HYDROcodone-acetaminophen (NORCO) 5-325 mg per tablet, Take 1 tablet by mouth 2 (two) times a day as needed for pain. Max Daily Amount: 2 tablets, Disp: 20 tablet, Rfl: 0 lamoTRIgine (LaMICtal) 100 mg tablet, TAKE 1 TABLET BY MOUTH EVERY DAY IN THE MORNING, Disp: , Rfl: pantoprazole (PROTONIX) 40 mg EC tablet, Take 1 tablet (40 mg total) by mouth every morning before breakfast., Disp: 90 tablet, Rfl: 1 potassium chloride (KLOR-CON M 20) 20 MEQ CR tablet, Take 1 tablet (20 mEq total) by mouth in the morning., Disp: , Rfl: predniSONE (DELTASONE) 20 mg tablet, Take 1 tablet (20 mg total) by mouth in the morning for 7 days., Disp: 7 tablet, Rfl: 0 propranolol LA (INDERAL LA) 80 mg 24 hr capsule, Take 1 capsule (80 mg total) by mouth in the morning., Disp: , Rfl: spironolactone (ALDACTONE) 25 mg tablet, Take 1 tablet (25 mg total) by mouth in the morning., Disp: 30 tablet, Rfl: 11 SUMAtriptan (IMITREX) 50 mg tablet, TAKE 1 TABLET BY MOUTH NEEDED WAIT AT LEAST 2 HOURS BETWEEN DOSES, Disp: , Rfl: torsemide 40 mg tablet, Take 80 mg by mouth daily., Disp: , Rfl: venlafaxine XR (EFFEXOR XR) 75 mg 24 hr capsule, TAKE 1 CAPSULE BY MOUTH EVERY DAY IN THE MORNING, Disp: , Rfl: venlafaxine XR (EFFEXOR-XR) 150 mg 24 hr capsule, Take 225 mg by mouth in the morning., Disp: , Rfl: apixaban (ELIQUIS) 5 mg tablet, Take 1 tablet (5 mg total) by mouth in the morning and 1 tablet (5 mg total) before bedtime., Disp: 120 tablet, Rfl: 0 Lab Results Office Visit on 09/24/2023 Component Date Value Ref Range Status External Poct Influenza A Antigen 09/24/2023 Negative Final External Poct Influenza B Antigen 09/24/2023 Negative Final External POCT SARS COV 2 Veritor 09/24/2023 Presumptive Negative Final Admission on 09/18/2023, Discharged on 09/19/2023 Component Date Value Ref Range Status White Blood Cells 09/18/2023 9.5 4.0 - 11.0 X10E9/L Final RBC count 09/18/2023 3.65 (L) 3.80 - 5.20 X10E12/L Final Hemoglobin 09/18/2023 10.2 (L) 11.7 - 15.5 g/dL Final Hematocrit 09/18/2023 31.2 (L) 35 - 47 % Final MCV 09/18/2023 86 80 - 100 fL Final MCH 09/18/2023 27.9 27 - 34 pg Final MCHC 09/18/2023 32.6 32 - 36 g/dL Final RDW 09/18/2023 15.9 (H) 11.5 - 15.0 % Final Platelets 09/18/2023 385 150 - 450 X10E9/L Final MPV 09/18/2023 7.8 7 - 12 fL Final % neutrophils 09/18/2023 71.6 % Final % lymphocytes 09/18/2023 19.9 % Final % monocytes 09/18/2023 6.0 % Final % eosinophils 09/18/2023 1.8 % Final % Basophils 09/18/2023 0.7 % Final Neutrophils Absolute (A) 09/18/2023 6.8 (H) 1.5 - 6.6 X10E9/L Final Lymphocytes Absolute 09/18/2023 1.9 1.0 - 3.5 X10E9/L Final Monocytes Absolute 09/18/2023 0.6 0 - 0.9 X10E9/L Final Eosinophils Absolute 09/18/2023 0.2 0.0 - 0.4 X10E9/L Final Basophils Absolute 09/18/2023 0.1 0.0 - 0.2 X10E9/L Final Protime 09/18/2023 15.3 (H) 9.8 - 13.2 sec Final Inr 09/18/2023 1.3 (H) 0.8 - 1.1 Final aPTT 09/18/2023 37 26 - 37 sec Final BNP 09/18/2023 63 <100.0 pg/mL Final Sodium 09/18/2023 135 134 - 146 mmol/L Final Potassium, Bld 09/18/2023 3.2 (L) 3.5 - 5.0 mmol/L Final Chloride 09/18/2023 105 98 - 109 mmol/L Final CO2 09/18/2023 29 22 - 32 mmol/L Final Anion gap 09/18/2023 1 (L) 5 - 15 mmol/L Final BUN 09/18/2023 23 5 - 27 mg/dL Final Creatinine 09/18/2023 1.25 (H) 0.40 - 1.00 mg/dL Final Glucose 09/18/2023 102 (H) 65 - 99 mg/dL Final Calcium 09/18/2023 8.3 (L) 8.5 - 10.5 mg/dL Final eGFR (CKD-EPI)non-race dependent 09/18/2023 49 (L) >59 ml/min/1.73sq.m Final Troponin I, High Sensitivity 09/18/2023 2 <16 ng/L Final 1 Hour Trop I, High Sensitivity 09/19/2023 4 <16 ng/L Final Other Testing X-ray chest 2 views Result Date: 09/24/2023 Clinical history: Community-acquired pneumonia. Acute changes and breath sounds. Productive sputum.Shortness of breath and chest congestion. Comparisons: 05/27/2023 through 09/19/2023. CT chest 09/10/2023 Findings: 2 views of the chest obtained. Heart size and mediastinal configuration appear within normal limits and unchanged. Right basilar pulmonary parenchymal scarring is unchanged. Patient is rotated to the right. There is some minimal subsegmental atelectasis in the left lower lobe. No focalpulmonary parenchymal consolidation. No definite pleural effusion. No pneumothorax. Changes of prior cardiac surgery again seen. Left breast peripherally calcified lesion again seen similar to recentCT scan. This likely represents fat necrosis. IMPRESSION: Stable chronic findings in the chest as above. No evidence for acute superimposed cardiopulmonary disease. Finalized by Tristen Neely MD on 09/24/2023 11:13 PM X-ray chest 1 view Result Date: 09/19/2023 Single view chest History: Difficulty breathing, shortness of breath. Comparison: 07/25/2023 Findings: Median sternotomy. Stable cardiac distal silhouette. The sclerotic aorta. Linear bibasilar scarring and/or atelectasis. No significant effusion or progressive focal consolidation. No pneumothorax. I mpression: Bibasilar atelectasis/scarring. No convincing acute cardiopulmonary process otherwise Finalized by Victor Hugo Gustafson MD on 09/19/2023 12:42 AM X-ray chest 2 views Result Date: 07/25/2023 Procedure: Chest x-ray performed Number of views:2 History:Shortness of breath Comparison:07/24/2023Findings: The heart and lungs show no acute findings, and the mediastinum and satnam are grossly negative . Impression: 1. No acute change. Finalized by Abdelrahman Patel MD on 07/25/2023 5:16 PM X-ray chest 1 view Result Date: 07/24/2023 XR CHEST 1 VW HISTORY: Cough, shortness of breath COMPARISON: 05/27/2023 FINDINGS: No pleural effusion or appreciable pneumothorax. Cardiomediastinal silhouette appears stable and nonenlarged. Focal airspace opacity over the peripheral right lower lobe, atelectasis versus pneumonia. Peripherally calc ified structure overlying the left lung base likely reflects left breast cyst seen on chest CT dated 04/14/2023. IMPRESSION: * Focal airspace opacification over the peripheral right lower lobe, atelectasis versus pneumonia. Approved by Resident: Ciaran Narvaez MD on 07/24/2023 9:58 PM ITristen MD have personally reviewed the image(s) and agree with and/or edited the report Finalized by Tristen Neely MD on 07/24/2023 10:05 PM Rajni Cardozo DO., [facility] Phys[facility] Office: [phone] documented in this encounterUniversity Hospitals [facility]ar[facility]05-30-2024 History of Present illness Narrative* Kacey Lamb Kat, RETAIL ADVERTISING EXECUTIVE-COMPOSITION ROLL [employer]TER - 09/24/2023 11:00 AM EDT Subjective Patient ID: Monet Recinos is a 63 y.o. female. Here today with cough, wheezing, congestion of more than week Ribs hurt from couging, interrupted sleep Chills, sweats She has been using nebulizers with some relief but they only give her about 30 minutes of relief Her sputum is a thick yellow Appetite is decreased but no nausea or vomiting She has increased swelling of her lower extremities the last two days which she relates to being onher feet more due to not sleeping The following portions of the patient's history were reviewed and updated as appropriate: allergies, current medications, past family history, past medical history, past social history, past surgicalhistory, problem list, and medication reconciliation was completed including current medication andpost discharge medication. Review of Systems Constitutional: Positive for activity change, appetite change, chills and fatigue. HENT: Positive for congestion. Respiratory: Positive for cough, shortness of breath and wheezing. Cardiovascular: Positive for leg swelling. Gastrointestinal: Negative for constipation, diarrhea, nausea and vomiting. Endocrine: Negative. Genitourinary: Negative. Musculoskeletal: Positive for arthralgias. Neurological: Positive for weakness. Psychiatric/Behavioral: The patient is nervous/anxious. Objective Physical Exam Vitals and nursing note reviewed. Exam conducted with a senior research project manager present (control manager). Constitutional: General: She is in acute distress. Appearance: She is obese. She is ill-appearing. Neck: Vascular: No carotid bruit. Cardiovascular: Rate and Rhythm: Normal rate and regular rhythm. Chest Wall: PMI is not displaced. Heart sounds: Normal heart sounds. No murmur heard. Comments: No JVD Pulmonary: Breath sounds: Wheezing and rales (both bases) present. Musculoskeletal: Right lower leg: Edema (4+ pitting bilateral) present. Left lower leg: Edema present. Lymphadenopathy: Cervical: No cervical adenopathy. Neurological: Mental Status: She is alert. Psychiatric: Thought Content: Thought content normal. Judgment: Judgment normal. Assessment/Plan Monet was seen today for cough. Diagnoses and all orders for this visit: Flu-like symptoms - POCT Influenza A/Influenza B/SARS-COV-2 Veritor Community acquired pneumonia, unspecified laterality - X-ray chest 2 views; Future - doxycycline (VIBRAMYCIN) 100 mg capsule; Take 1 capsule (100 mg total) by mouth in the morning and 1 capsule (100 mg total) before bedtime. Do all this for 7 days. - predniSONE (DELTASONE) 20 mg tablet; Take 1 tablet (20 mg total) by mouth in the morning for 7 days. Chronic heart failure with preserved ejection fraction (CMS-HCC) - X-ray chest 2 views; Future Will treat tentatively as pneumonia and start doxycycline and prednisone Continue inhalers and nebulizers She does use oxygen at night Continue her diuretics and elevate legs when possible Get x-ray to discern if there is either co-existing or this is actually an exacerbation of her CHF She is negative for covid and influenza YONY Vazquez 09/24/23 1650 documented in this encounterThe Surgical Hospital at SouthwoodsTheStreet [facility] [id number] History of Present illness Narrative* Rajni Cardozo, DO - 09/09/2023 1:00 PM EDT Subjective Patient ID: Monet Recinos is a 63 y.o. female. The patient is here today for discharge followup from hospital. Transition of Care Med Rec completed? Yes Discharged medications: Medications have been reviewed and reconciled with the most recent facilitydischarge document. HPI The following portions of the patient's history were reviewed and updated as appropriate: current medications, past medical history, past social history, past surgical history, problem list, and medication reconciliation was completed including current medication and post discharge medication. Patient had been admitted to [facility] because of chest pain. Was sharp stabbing radiating to the back. Imaging revealed T6 compression fracture, as well as a segmental PE. She was started onanticoagulation with Eliquis which she continues to take. She was discharged from the hospital prior to being able to obtain an MRI of the thoracic compression fracture, and before being able to obtain a venous Doppler of her lower extremities. She continues to have sharp, stabbing, burning pain inher chest and back. Especially bad on the right side. She is using topical liniments, and ran out of her Percocet, so pain is currently uncontrolled. She did not get the salmon calcitonin at discharge either. She reports no problems taking the Eliquis, and has some bruising on the right arm, leftover from the admission. She is receiving physical therapy to her low back and right hip. Review of Systems Constitutional: Positive for activity change and fatigue. Negative for appetite change, chills, diaphoresis, fever and unexpected weight change. HENT: Positive for dental problem. Negative for congestion. Eyes: Negative for visual disturbance. Respiratory: Positive for apnea. Negative for cough, choking, chest tightness, shortness of breath,wheezing and stridor. Still has not had her CPAP titration study done. Did start smoking cigarettes once again. Cardiovascular: Negative for chest pain, palpitations and leg swelling. Gastrointestinal: Negative for abdominal distention and abdominal pain. Endocrine: Negative for cold intolerance and heat intolerance. Genitourinary: Negative for difficulty urinating and frequency. Musculoskeletal: Positive for back pain and gait problem. Negative for arthralgias. Uses a rolling walker Skin: Negative for color change, pallor, rash and wound. Neurological: Positive for weakness. Negative for dizziness, tremors, seizures, syncope, speech difficulty, light-headedness, numbness and headaches. Hematological: Negative for adenopathy. Does not bruise/bleed easily. Psychiatric/Behavioral: Positive for decreased concentration. Negative for agitation, behavioral problems and dysphoric mood. The patient is not nervous/anxious. Objective Physical Exam Vitals reviewed. Exam conducted with a senior research project manager present (Friend/POA). Constitutional: General: She is not in acute distress. Appearance: She is well-developed. She is obese. She is not toxic-appearing. HENT: Head: Normocephalic. Right Ear: External ear normal. Left Ear: External ear normal. Nose: Nose normal. Mouth/Throat: Mouth: Mucous membranes are moist. Eyes: General: No scleral icterus. Neck: Vascular: No carotid bruit. Cardiovascular: Rate and Rhythm: Normal rate. Pulses: Normal pulses. Heart sounds: Normal heart sounds. No murmur heard. No gallop. Comments: Heart tones distant Pulmonary: Effort: Pulmonary effort is normal. Breath sounds: No wheezing or rales. Abdominal: Palpations: Abdomen is soft. Musculoskeletal: General: Tenderness (Upper thoracic area posterior, right more than left. Upper sternal border on the right. Noted with palpation, or deep inspiration) present. Cervical back: Neck supple. Right lower leg: No edema (Trace). Left lower leg: No edema (Trace). Lymphadenopathy: Cervical: No cervical adenopathy. Skin: General: Skin is warm and dry. Coloration: Skin is not jaundiced. Findings: No bruising. Neurological: Mental Status: She is alert and oriented to person, place, and time. Sensory: No sensory deficit (Intact vibratory sensation bilateral feet and ankles). Motor: Weakness (Hip flexors: 4/5 bilateral. Knee extensor: 3/5 bilateral. Knee flexor: 4/5 bilateral. Ankle dorsiflexion: 4/5 bilateral.) present. Gait: Gait abnormal (Using a rolling walker. Able to climb onto exam table). Deep Tendon Reflexes: Reflexes are normal and symmetric. Psychiatric: Mood and Affect: Mood normal. Behavior: Behavior normal. Assessment/Plan Monet was seen today for 1 month recheck. Diagnoses and all orders for this visit: Closed wedge compression fracture of T6 vertebra with routine healing -I reviewed the results of the CT scan with the patient and her POA. -I suspect this is the main cause of her pain, and the main reason she came to the hospital -pain not currently controlled -scheduled to have MRI of the thoracic spine tomorrow -in the meantime, will refill hydrocodone b.i.d., and advised to start the salmon calcitonin as prescribed in the hospital -further recommendations following MRI results - HYDROcodone-acetaminophen (NORCO) 5-325 mg per tablet; Take 1 tablet by mouth 2 (two) times a dayas needed for pain. Max Daily Amount: 2 tablets - calcitonin, salmon, (MIACALCIN) 200 unit/actuation nasal spray; Administer 1 spray into alternating nostrils in the morning. Acute pulmonary embolism without acute cor pulmonale, unspecified pulmonary embolism type (CMS-HCC) -reviewed results of the CT scan/angiogram with the patient and POA -currently taking Eliquis 10 mg b.i.d., soon the convert to 5 mg b.i.d. -patient will require treatment for 3 months -venous Doppler to evaluate for source to be performed tomorrow Spinal stenosis of lumbar region with neurogenic claudication -stable but still limiting -Has physical therapy coming in for ongoing eval and treatment -no changes today documented in this encounterHolden Memorial HospitalTapioca Mobile04-22-2024 Miscellaneous Notes* Telephone Encounter - Monica Johnston CMA - 08/17/2023 10:20 AM EDT Pt called stated that [facility] is waiting for a corrected RX for her portable O2 , stated it needs it sent today she is leaving town in the morning * Telephone Encounter - Rajni Cardozo DO - 08/17/2023 10:20 AM EDT Message noted. It was corrected last week. Was it sent? * Telephone Encounter - Cathleen Arreola - 08/17/2023 10:20 AM EDT Will get it out today, was the only one here Thursday documented in this encounterUniversity Hospitals [facility]ar[facility]04-22-2024 Telephone encounter Note* Telephone Encounter - Monica Johnston CMA - 08/17/2023 10:20 AM EDT Pt called stated that [facility] is waiting for a corrected RX for her portable O2 , stated it needs it sent today she is leaving [facility] in the morning [facility]04-22-2024 Telephone encounter Note* Telephone Encounter - Rajni Cardozo DO - 08/17/2023 10:20 AM EDT Message noted. It was corrected last week. Was it sent? [facility]04-22-2024 Telephone encounter Note* Telephone Encounter - Cathleen Arreola - 08/17/2023 10:20 AM EDT Will get it out today, was the only one here Thursday [facility]04-22-2024 Miscellaneous Notes* Telephone Encounter - Leona Gaffney - 08/17/2023 9:06 AM EDT 08/13 Order received Scheduled PAP @ [facility] on 12/06 My chart confirmation [facility] Medicare / Medicaid Pap Order and 06/25/23 Stephanie Meadows Epic Notes Run with TCO2 monitoring, previously tried/failed CPAP. Low threshold to switch to BiPAP if patient intolerant documented in this encounterOhio Valley Surgical Hospital SpotlessCity [id number] Telephone encounter Note* Telephone Encounter - Leona Gaffney - 08/17/2023 9:06 AM EDT 08/13 Order received Scheduled PAP @ [facility] on 12/06 My chart confirmation [facility] Medicare / Medicaid Pap Order and 06/25/23 Stephanie Meadows Epic Notes Run with TCO2 monitoring, previously tried/failed CPAP. Low threshold to switch to BiPAP if patient intolerant [facility] [id number] Miscellaneous Notes* Telephone Encounter - Kaia Jovel MD - 08/13/2023 2:39 PM EDT PSG interpreted ordered by Dr. Meadows, the patient had severe BONY and hypoxemia but did not qualifyfor split in same night due to lack of events in first 2 hrs. Recommend titration with comments to expedite due to severity Does she have a BiPAP unit at home already? Or is this to get a new machine? Would likely need to try and fail CPAP during titration to get BiPAP unless she already has one at home Polysomnogram on 08/11/2023 (AHI (3%)=35.8 events/hour; AHI (4%)=13.1 events/hour; Dani SpO2=83.0%;Twrihe=895.0 lbs; BMI=38.2 kg/m2) DIAGNOSIS: Obstructive Sleep Apnea (G47.33) Sleep Related Hypoxemia - ICD code G47.36 COMMENTS: This baseline polysomnogram demonstrates severe obstructive sleep apnea. The patient's sleep efficiency on the diagnostic night was 78.2%. There was no sleep related hypoventilation. TcCO2 values in quiet wakefulness were 41-44 mmHg and were 44-47 mmHg in sleep. There was, however, hypoxemia in sleep which was independent of obstructiveevents. Baseline oxygen saturations in sleep were frequently sustained at 86-88%. Clinical correlation is needed. Oxygen saturations in wakefulness were typically 90-94%. The study was ordered with a split night protocol but did not qualify due to paucity of events in the first two hours. A CPAP titration is recommended. * Telephone Encounter - Shari Garcia RN - 08/13/2023 2:39 PM EDT GÉNESIS - PLEASE FACILITATE THANKS documented in this encounterThe Surgical Hospital at SouthwoodsTheStreet Insight Surgical [id number] Telephone encounter Note* Telephone Encounter - Kaia Jovel MD - 08/13/2023 2:39 PM EDT PSG interpreted ordered by Dr. Meadows, the patient had severe BONY and hypoxemia but did not qualifyfor split in same night due to lack of events in first 2 hrs. Recommend titration with comments to expedite due to severity Does she have a BiPAP unit at home already? Or is this to get a new machine? Would likely need to try and fail CPAP during titration to get BiPAP unless she already has one at home Polysomnogram on 08/11/2023 (AHI (3%)=35.8 events/hour; AHI (4%)=13.1 events/hour; Dani SpO2=83.0%;Wklkvd=845.0 lbs; BMI=38.2 kg/m2) DIAGNOSIS: Obstructive Sleep Apnea (G47.33) Sleep Related Hypoxemia - ICD code G47.36 COMMENTS: This baseline polysomnogram demonstrates severe obstructive sleep apnea. The patient's sleep efficiency on the diagnostic night was 78.2%. There was no sleep related hypoventilation. TcCO2 values in quiet wakefulness were 41-44 mmHg and were 44-47 mmHg in sleep. There was, however, hypoxemia in sleep which was independent of obstructiveevents. Baseline oxygen saturations in sleep were frequently sustained at 86-88%. Clinical correlation is needed. Oxygen saturations in wakefulness were typically 90-94%. The study was ordered with a split night protocol but did not qualify due to paucity of events in the first two hours. A CPAP titration is recommended. [employer] Work Phone: [phone] Telephone encounter Note* Telephone Encounter - Shari Garcia RN - 08/13/2023 2:39 PM EDT GÉNESIS - PLEASE FACILITATE THANKS [facility]04-18-2024 Miscellaneous Notes* Telephone Encounter - Sofya Coe CMA - 08/13/2023 10:36 AM EDT Anabela from [facility] called because the order for her O2 has to say POC setting at 2L/Min viaNasal Cannula or her insurance will not cover it. They want us to fax the new order to [phone] * Telephone Encounter - Rajni Cardozo DO - 08/13/2023 10:36 AM EDT Message noted. A new order for POC setting at 2L/Min via Nasal Cannula was placed in her chart today. Please fax this to [facility] so she can get her portable O2 concentrator * Telephone Encounter - Cathleen Arreola - 08/13/2023 10:36 AM EDT Got it documented in this encounterHolden Memorial HospitalTapioca Mobile04-18-2024 Telephone encounter Note* Telephone Encounter - Sofya Coe CMA - 08/13/2023 10:36 AM EDT Anabela from [facility] called because the order for her O2 has to say POC setting at 2L/Min viaNasal Cannula or her insurance will not cover it. They want us to fax the new order to [phone] [facility] [id number] Telephone encounter Note* Telephone Encounter - Rajni Cardozo DO - 08/13/2023 10:36 AM EDT Message noted. A new order for POC setting at 2L/Min via Nasal Cannula was placed in her chart today. Please fax this to [facility] so she can get her portable O2 concentrator [employer] [id number] Telephone encounter Note* Telephone Encounter - Cathleen Arreola - 08/13/2023 10:36 AM EDT [facility] [id number] History of Present illness Narrative* Rajni Cardozo DO - 08/10/2023 1:00 PM EDT Subjective Patient ID: Monet Recinos is a 63 y.o. female. The patient is here today for discharge followup from hospital. Transition of Care Med Rec completed? Yes Discharged medications: Medications have been reviewed and reconciled with the most recent facilitydischarge document. HPI The following portions of the patient's history were reviewed and updated as appropriate: allergies, current medications, past medical history, past surgical history, problem list, and medication reconciliation was completed including current medication and post discharge medication. Was in hospital for acute on chronic respiratory failure with hypoxemia. This was secondary to exacerbation of COPD. Was treated and sent home with steroid, and also qualified for home oxygen with portability. She is using it throughout the day while at home, but DME only provided her with stationary O2 concentrator and large O2 tank on wheels, which she is unable to move due to using a walker. Her breathing is improved, with less cough and less LOCO. In addition, she was in ED 2 days ago because of new onset right groin pain. Occurred after trying to get out of bed, after sleeping in an upright position. When she flexes the hip, she gets sharp pain in right SI joint, and right groin. Hurts to lift leg to try and bear weight. No injury. No previous issues like this in the groin. Has had problems with her back in the past. Was given Percocet, which helps, but she is out. Does get some relief with heat or ice. Has not fallen. Review of Systems Constitutional: Positive for activity change. HENT: Negative. Respiratory: Positive for shortness of breath. Negative for wheezing. Cardiovascular: Positive for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 Concern: Stress - Stress Concern Present (07/25/2023) [place] [employer] - Occupational Stress Questionnaire Feeling of Stress : Very much Social Connections: Moderately Isolated (07/25/2023) Social Connection and Isolation Panel [NHANES] Frequency of Communication with Friends and Family: Three times a week Frequency of Social Gatherings with Friends and Family: Three times a week Attends Yarsanism Services: More than 4 times per year Active Member of Clubs or Organizations: No Attends Club or Organization Meetings: Never Marital Status: Interpersonal Safety: Not At Risk (07/25/2023) Humiliation, Afraid, Rape, and Kick questionnaire Fear of Current or Ex-Partner: No Emotionally Abused: No Physically Abused: No Sexually Abused: No Housing Instability: Low Risk (07/25/2023) Housing Instability Housing Instability: No Temp: [36.4 C (97.5 F)-36.8 C (98.3 F)] 36.8 C (98.3 F) Pulse: [49-91] 79 Resp: [16-22] 20 BP: (94-158)/(57-104) 132/86 FiO2 (%): [21 %-40 %] 21 % SpO2: [85 %-99 %] 94 % O2 Device: Nasal cannula O2 Flow Rate (L/min): [2 L/min] 2 L/min O2 Device: Nasal cannula Per vidyo/ RN PHYSICAL EXAM: GEN: Pleasant, comfortable, cooperative, NAD HEENT: Head atraumatic, normocephalic. NECK: Trachea midline, no Lymphadenopathy CV: S1 S2 RRR RESP: Clear to auscultation bilaterally, rhonchi - absent; crackles/ rales - absent; no accessory muscle use ABD: Soft, ND, NT, normal BS, no organomegaly EXT: No edema, no cyanosis, no erythema NEURO: no apparent sensorimotor deficits SKIN: Warm, dry, no rash Results from last 3 days Lab Units 07/26/23 0424 07/25/23 1640 07/24/23 2148 BUN mg/dL 18 21 20 CREATININE mg/dL 1.18* 1.57* 1.44* POTASSIUM mmol/L 3.7 3.6 3.4* CO2 mmol/L 27 27 26 CHLORIDE mmol/L 103 104 105 No data from last 3 days. Results from last 3 days Lab Units 07/25/23 1640 07/24/23 2148 WBC X10E9/L 10.2 9.7 HEMOGLOBIN g/dL 11.3* 11.0* HEMATOCRIT % 35.0 33.8* PLATELETS X10E9/L 308 293 MCV fL 91 90 MCH pg 29.3 29.4 MCHC g/dL 32.3 32.6 RDW % 16.6* 16.0* EOS ABS AUTO X10E9/L 0.2 0.2 Microbiology Results Procedure Component Value Units Date/Time Blood culture #1 [[id number]] Collected: 07/25/231756 Specimen: Blood Updated: 07/26/23 1007 Culture NO GROWTH <24 HRS SARS/FLU A+B/RSV by NAAT/Molecular (M4RT Collection Tube) [[id number]] Collected: 07/25/231749 Specimen: Nasopharynx Updated: 07/25/231924 FLU A PCR Negative FLU B PCR Negative RSV by PCR Negative SARS CoV 2 BY PCR Not Detected Blood culture #2 [[id number]] Collected: 07/25/231744 Specimen: Blood Updated: 07/26/23 1007 Culture NO GROWTH <24 HRS SARS/FLU A+B/RSV by NAAT/Molecular (M4RT Collection Tube) [[id number]] Collected: 07/24/232149 Specimen: Nasopharynx Updated: 07/24/232243 FLU A PCR Negative FLU B PCR Negative RSV by PCR Negative SARS CoV 2 BY PCR Not Detected Glucose Results from last 7 days Lab Units 07/26/23 0424 07/25/23 1640 07/24/232147 GLUCOSE mg/dL 157* 107* 134* I/O last 3 completed shifts: In: 1001.4 [P.O.:950; I.V.:6; IV Piggyback:45.4] Out: 1325 [Urine:1325] Microbiology Results Procedure Component Value Units Date/Time Blood culture #1 [[id number]] Collected: 07/25/231756 Specimen: Blood Updated: 07/26/23 1007 Culture NO GROWTH <24 HRS SARS/FLU A+B/RSV by NAAT/Molecular (M4RT Collection Tube) [[id number]] Collected: 07/25/231749 Specimen: Nasopharynx Updated: 07/25/231924 FLU A PCR Negative FLU B PCR Negative RSV by PCR Negative SARS CoV 2 BY PCR Not Detected Blood culture #2 [[id number]] Collected: 07/25/231744 Specimen: Blood Updated: 07/26/23 1007 Culture NO GROWTH <24 HRS SARS/FLU A+B/RSV by NAAT/Molecular (M4RT Collection Tube) [[id number]] Collected: 07/24/232149 Specimen: Nasopharynx Updated: 07/24/232243 FLU A PCR Negative FLU B PCR Negative RSV by PCR Negative SARS CoV 2 BY PCR Not Detected Lines/Drains Peripheral IV 07/25/23 Right Antecubital (Active) Line Status Saline locked 07/26/23 08 Site Assessment Clean;Dry;Intact 07/26/23 08 Dressing Type Transparent 07/26/23 08 Dressing Status Clean;Dry;Intact 07/26/23 0800 Dressing Intervention Initial dressing 07/25/23 1640 Specimen Obtained Yes 07/25/23 1640 Specimen Status Sent for analysis 07/25/23 1640 Dressing Change Due (Non-Gauze) 08/01/23 07/25/23 1640 X-ray chest 2 views Result Date: 07/25/2023 Procedure: Chest x-ray performed Number of views:2 History:Shortness of breath Comparison:07/24/2023Findings: The heart and lungs show no acute findings, and the mediastinum and satnam are grossly negative . Impression: 1. No acute change. Finalized by Abdelrahman Patel MD on 07/25/2023 5:16 PM X-ray chest 1 view Result Date: 07/24/2023 XR CHEST 1 VW HISTORY: Cough, shortness of breath COMPARISON: 05/27/2023 FINDINGS: No pleural effusion or appreciable pneumothorax. Cardiomediastinal silhouette appears stable and nonenlarged. Focal airspace opacity over the peripheral right lower lobe, atelectasis versus pneumonia. Peripherally calc ified structure overlying the left lung base likely reflects left breast cyst seen on chest CT dated 04/14/2023. IMPRESSION: * Focal airspace opacification over the peripheral right lower lobe, atelectasis versus pneumonia. Approved by Resident: Ciaran Narvaez MD on 07/24/2023 9:58 PM I, Tristen Neely MD have personally reviewed the image(s) and agree with and/or edited the report Finalized by Tristen Neely MD on 07/24/2023 10:05 PM Echo complete W/ contrast Result Date: 04/15/2023 Left Ventricle: Left ventricle appears normal in size. Wall thickness is normal. Systolic function is normal with an ejection fraction of 55-60%. Aortic Valve: There is no regurgitation or stenosis. Mitral Valve: There is [id number] regurgitation. There is no evidence of mitral valve stenosis. Tricuspid Valve: There is moderate regurgitation. RVSP estimated at 40-45 mmHg. Echo complete W/ contrast Result Date: 11/19/2021 Left Ventricle: Systolic function is normal with an ejection fraction of 55-60%. Aortic Valve: There is no regurgitation or stenosis. Mitral Valve: There is [id number] regurgitation. There is no evidence of mitral valve stenosis. Tricuspid Valve: There is moderate regurgitation. RVSP calculated at 42 mmHg. RVSP is based on RA pressure of 3 mmHg. ASSESSMENT / PLAN: COPD - BD Acute hypoxic resp failure - O2; wean as tolerated ? Home O2 BONY/OHS BPAP as tolerated Sleep study scheduled for next week DW patient * Plan of Care - Gale Chiang RN - 07/26/2023 10:00 AM EDT Problem: Pain Goal: Patient goal is pain score less than 4, able to rest, and participant in treatment plan as appropriate Description: INTERVENTIONS: 1. Encourage patient or legal textiles sales representative to report early pain and ask [...] per policy 9. Teach patient or legal textiles sales representative interventions for comforting Outcome: Progressing Note: Evaluation of progress towards goal: Continue to assess for pain and address accordingly Problem: Moderate - High Risk Fall Score Description: Shearer Fall Score of =/> 25 or indicated by [facility] Assessment Goal: Patient should be free from fall Description: Interventions: 1. Seibert to environment 2. Hourly rounds addressing the [...] non-skid footwear 11. Teach patient and patient textiles sales representative to maintain environment for safety and [...] (cane, walker) within reach 19. Request patient textiles sales representative bring adaptive equipment/mobility aids from home or obtain and provide as needed 20. Consult pharmacy regarding effects of med's affecting mobility, cognition, and alternatives 21. Obtain physician order for PT if risk factors associated with mobility are present 22. Obtain physician order for OT as appropriate 23. Utilize diversional activities 24. Educate patient and patient textiles sales representative how to maintain a safe environment during visitationtimes (notify nurse prior to leaving bedside) 25. Consider appropriateness of medical or non-medical assembly 26. Set up voiding schedule as appropriate (every 2 hours) Outcome: Progressing Note: Evaluation of progress towards goal: PT is free of falls, hourly rounding is completed, area is kept clear. * Plan of Care - Christy Andrew [facility] - 07/26/2023 7:33 AM EDT Problem: Inadequate Breathing Pattern Goal: Patient will achieve/maintain normal respiratory rate/effort Description: Patient's goal is: INTERVENTIONS 1. Assess and monitor respiratory rate, effort, breathing pattern, and oxygenation 2. Monitor patient for restlessness, anxiety, air hunger 3. Assess physical activity tolerance 4. Assess tobacco history; ask, advise, and refer as appropriate 5. Collaborate with interdisciplinary team and initiate plans/interventions as needed Note: Evaluation of progress towards goal: 07/26/23 0721 Vital Signs Pulse 73 Heart Rate Source Monitor Resp 20 SpO2 92 % O2 Device Nasal cannula O2 Flow Rate (L/min) 2 L/min Respiratory Assessment Assessment Type Pre-treatment Level of Consciousness Alert Respiratory Pattern Regular Chest Assessment Chest expansion symmetrical Bilateral Breath Sounds Diminished Location Specific No Inhalation Therapy Delivery Source Oxygen Device Nebulizer Duration (Minutes) 10 Position Semi Abebe's * Plan of Care - Lissette Mathews RN - 07/26/2023 4:47 AM EDT Problem: Pain Goal: Patient goal is pain score less than 4, able to rest, and participant in treatment plan as appropriate Description: INTERVENTIONS: 1. Encourage patient or legal textiles sales representative to report early pain and ask [...] per policy 9. Teach patient or legal textiles sales representative interventions for comforting Outcome: Progressing Note: Evaluation of progress towards goal: No c/o pain voiced thus far this shift. NO nonverbal s/sx pain noted Problem: Safety Goal: Patient will be injury free during hospitalization Description: INTERVENTIONS: 1. Assess patient's risk for falls and implement fall prevention plan of care per policy 2. Provide and maintain a safe environment 3. Proper use of double Identifiers 4. Medication administration using the 5 rights 5. Hand hygiene 6. Specimens are labeled at the bedside 7. Instruct patient/ patient textiles sales representative about use of safety devices 8. Include patient/ patient textiles sales representative in decisions related to safety Outcome: Progressing Note: Evaluation of progress towards goal: Remains free from injury. Safety precautions maintained. Problem: Knowledge Deficit Goal: Patient/patient textiles sales representative demonstrates understanding of disease process, treatment plan,medications, and discharge instructions Description: INTERVENTIONS 1. Complete learning assessment and assess knowledge base 2. Provide teaching at level of understanding 3. Provide teaching via preferred learning method(s) Outcome: Progressing Note: Evaluation of progress towards goal: Plan of care reviewed, no questions/concerns voiced. Allinterventions explained prior to initiating. Problem: Moderate - High Risk Fall Score Description: Shearer Fall Score of =/> 25 or indicated by [facility] Assessment Goal: Patient should be free from fall Description: Interventions: 1. Seibert to environment 2. Hourly rounds addressing the [...] non-skid footwear 11. Teach patient and patient textiles sales representative to maintain environment for safety and [...] (cane, walker) within reach 19. Request patient textiles sales representative bring adaptive equipment/mobility aids from home or obtain and provide as needed 20. Consult pharmacy regarding effects of med's affecting mobility, cognition, and alternatives 21. Obtain physician order for PT if risk factors associated with mobility are present 22. Obtain physician order for OT as appropriate 23. Utilize diversional activities 24. Educate patient and patient textiles sales representative how to maintain a safe environment during visitationtimes (notify nurse prior to leaving bedside) 25. Consider appropriateness of medical or non-medical assembly 26. Set up voiding schedule as appropriate (every 2 hours) Outcome: Progressing Note: Evaluation of progress towards goal: Remains free from falls. Gait steady when standing and taking 1-2 steps to BSC. Tolerating well. No c/o dizziness or lightheadedness. Fall precautions maintained. Problem: Urinary Incontinence Goal: Perineal skin integrity [...] Progressing Note: Evaluation of progress towards goal: Perineal skin intact. Problem: Inadequate Gas Exchange Goal: Patient is adequately oxygenated and ventilation is improved Description: Patient's goal is: INTERVENTIONS 1. Monitor vital signs, oxygen saturation, respiratory status to include rate, depth, effort, lung sounds, mental status, cyanosis, and labs (ABGs) 2. Administer oxygen as indicated 3. Position patient to optimize gas exchange 4. Instruct patient to turn, cough, and deep breathe; encourage incentive spirometer if indicated 5. Collaborate with Respiratory Therapy for inhaled medication and therapeutic adjuncts 6. Assess skin when indicated 7. Coordinate care and interventions to conserve energy 8. Educate and offer resources for tobacco cessation, if indicated Outcome: Progressing Note: Evaluation of progress towards goal: Pt o2 sats wnl on bipap et currently while on 2lpm NC. No distress noted. PT denies shortness of breath. documented in this encounterThe [facility] at [facility]woodsGuvera [id number] Progress note* Discharge Planning Note - Concepcion Vargas - 07/27/2023 11:12 AM EDT DISCHARGE PLANNING NOTE Referral sent to [facility] ([place]- P# ; F# ) ([place]- P# ; F# ) ([place]- P# ; F# ) ([place]- P# ; F# ) ([place]- P# ; F# ) ([place]- P# ; F# ) ([place]- P# [phone] ; F# [phone]) FAB BAG04-01-2024 Progress note* Discharge Planning Note - DEENA Raines - 07/27/2023 11:06 AM EDT DISCHARGE PLANNING NOTE Tasked Transition Center to send referral to [facility] for home O2 with portability for DC today; requested delivery time of equipment. FAB BAG04-01-2024 Hospital course Narrative* Rajni Cardozo DO - 07/27/2023 10:45 AM EDT Images from the original note were not included. HOSPITAL DISCHARGE NOTE Patient Name: Monet Recinos : 1960 PCP: Rajni Cardozo Jr, DO Date of admission: 07/25/2023 Date of discharge: 07/27/2023 Discharge diagnoses: Principal Problem: Chronic respiratory failure with hypoxia and hypercapnia ([facility]) Active Problems: Atherosclerotic heart disease of [place] coronary artery with other forms of angina pectoris ([facility]) Essential hypertension Bipolar 2 disorder, major depressive episode ([facility]) Consultants: Consulting Providers Provider Service Specialty Nathaniel Carlos MD Z Pulmonology Pulmonary Medicine Major Procedures and testing: Walking pulse ox study on room air; chest x-ray Hospital Course Summary: Patient admitted through the emergency department after 2nd visit in 2 days due to increased shortness of breath, coughing and congestion. Was found to be hypoxemic with O2 sat 85% at home and in theemergency department. No fevers. WBC normal. BNP normal. Was found to have hypercarbia on venous blood gas. Admitted to the hospital placed on frequent nebulizer treatments, IV steroids, and oxygen support. Over the course of the next 48 hours, she was able to have her oxygen weaned downward. At rest, pulse ox saturations were borderline. She underwent a walking pulse ox study, which did demonstrate desaturation with activity, and responded to application of oxygen. With this, she felt close to her baseline. She is agreeable to receiving and wearing home oxygen. She is felt to be ready for discharge with continued use of her oxygen, nebulizers, completing a course of steroids and Vibramycin, and continuing to remain off of cigarettes and nicotine. Exam: BP 129/78 Pulse 78 Temp 36.4 C (97.6 F) (Oral) Resp 18 Ht 175.3 cm (5' 9 ) Wt 103.7 kg (228 lb 11.2 oz) SpO2 92% No Comment: n/a BMI 33.77 kg/m Intake/Output Summary (Last 24 hours) at 07/27/2023 1055 Last data filed at 07/27/2023 1022 Gross per 24 hour Intake 1077 ml Output 2000 ml Net -923 ml General appearance: Awake and oriented to person place and time Head: Normocephalic Throat: Moist Neck: Symmetric but thick Lungs: Diminished air movement bilaterally. No wheezing today Heart: Distant and regular Abdomen: Obese soft nontender Extremities: No edema Pulses: Diminished x4 Skin: No breakdown or rashes Neurologic: No focal deficits Labs: Recent Results (from the past 48 hour(s)) CBC auto differential Collection Time: 07/25/23 4:40 PM Result Value Ref Range White Blood Cells 10.2 4.0 - 11.0 X10E9/L RBC count 3.86 3.80 - 5.20 X10E12/L Hemoglobin 11.3 (L) 11.7 - 15.5 g/dL Hematocrit 35.0 35 - 47 % MCV 91 80 - 100 fL MCH 29.3 27 - 34 pg MCHC 32.3 32 - 36 g/dL RDW 16.6 (H) 11.5 - 15.0 % Platelets 308 150 - 450 X10E9/L MPV 7.9 7 - 12 fL % neutrophils 66.1 % % lymphocytes 25.4 % % monocytes 5.7 % % eosinophils 2.2 % % Basophils 0.6 % Neutrophils Absolute (A) 6.7 (H) 1.5 - 6.6 X10E9/L Lymphocytes Absolute 2.6 1.0 - 3.5 X10E9/L Monocytes Absolute 0.6 0 - 0.9 X10E9/L Eosinophils Absolute 0.2 0.0 - 0.4 X10E9/L Basophils Absolute 0.1 0.0 - 0.2 X10E9/L Basic Metabolic Panel Collection Time: 07/25/23 4:40 PM Result Value Ref Range Sodium 136 134 - 146 mmol/L Potassium, Bld 3.6 3.5 - 5.0 mmol/L Chloride 104 98 - 109 mmol/L CO2 27 22 - 32 mmol/L Anion gap 5 5 - 15 mmol/L BUN 21 5 - 27 mg/dL Creatinine 1.57 (H) 0.40 - 1.00 mg/dL Glucose 107 (H) 65 - 99 mg/dL Calcium 8.7 8.5 - 10.5 mg/dL eGFR (CKD-EPI)non-race dependent 37 (L) >59 ml/min/1.73sq.m Troponin I Collection Time: 07/25/23 4:40 PM Result Value Ref Range Troponin I 0.01 0.00 - 0.04 ng/mL Blood culture #2 Collection Time: 07/25/23 5:45 PM Specimen: Blood RIGHT~ARM Result Value Ref Range Culture NO GROWTH 1 DAY Blood gas, venous Collection Time: 07/25/23 5:48 PM Result Value Ref Range Sample Type VENOUS Body Temp 37.0 37.0 C pH, Venous 7.224 (L) 7.320 - 7.420 PCO2, Venous 67.8 (H) 35 - 50 MMHG PO2, Venous 43 30 - 50 MMHG Base,Deficit 1.0 0.0 - 2.0 MMOL/L Portable HCO3 28.0 (H) 20.0 - 24.0 MMOL/L % O2 Sat 68.0 (L) >80.0 % Ravindra's Test NA SPO2 95 % Sample Site N/A Insp. O2 Conc. 28 % Oxygen Source NC SARS/FLU A+B/RSV by NAAT/Molecular (M4RT Collection Tube) Collection Time: 07/25/23 5:50 PM Result Value Ref Range FLU A PCR Negative Negative^Negative FLU B PCR Negative Negative^Negative RSV by PCR Negative Negative^Negative SARS CoV 2 BY PCR Not Detected Not Detected^Not Detected Blood culture #1 Collection Time: 07/25/23 5:57 PM Specimen: Blood LEFT~ANTECUBITAL Result Value Ref Range Culture NO GROWTH 1 DAY Lactate w/ Reflex Collection Time: 07/25/23 5:57 PM Result Value Ref Range Lactate w/ Reflex 1.1 0.4 - 2.0 mmol/L Basic Metabolic Panel Collection Time: 07/26/23 4:24 AM Result Value Ref Range Sodium 139 134 - 146 mmol/L Potassium, Bld 3.7 3.5 - 5.0 mmol/L Chloride 103 98 - 109 mmol/L CO2 27 22 - 32 mmol/L Anion gap 9 5 - 15 mmol/L BUN 18 5 - 27 mg/dL Creatinine 1.18 (H) 0.40 - 1.00 mg/dL Glucose 157 (H) 65 - 99 mg/dL Calcium 8.8 8.5 - 10.5 mg/dL eGFR (CKD-EPI)non-race dependent 53 (L) >59 ml/min/1.73sq.m Basic Metabolic Panel Collection Time: 07/27/23 4:30 AM Result Value Ref Range Sodium 136 134 - 146 mmol/L Potassium, Bld 3.4 (L) 3.5 - 5.0 mmol/L Chloride 100 98 - 109 mmol/L CO2 28 22 - 32 mmol/L Anion gap 8 5 - 15 mmol/L BUN 24 5 - 27 mg/dL Creatinine 1.06 (H) 0.40 - 1.00 mg/dL Glucose 148 (H) 65 - 99 mg/dL Calcium 9.0 8.5 - 10.5 mg/dL eGFR (CKD-EPI)non-race dependent 60 >59 ml/min/1.73sq.m Discharge Instructions: Disposition: Discharge to home with portable oxygen Condition:Stable Activity: activity as tolerated Diet: Adult diet Regular Texture; 2000 mg Sodium Follow up: No follow-up provider specified. Discharge Medications: Your medication list ASK your doctor about these medications Instructions Last Dose Given Next Dose Due albuterol 0.63 mg/3 mL nebulizer solution Commonly known as: ACCUNEB albuterol 90 mcg/actuation inhaler Commonly known as: PROVENTIL HFA;VENTOLIN HFA ARIPiprazole 15 mg tablet Commonly known as: ABILIFY aspirin 81 mg atorvastatin 80 mg tablet Commonly known as: LIPITOR TAKE 1 TABLET (80 MG TOTAL) BY MOUTH IN THE MORNING JYOTI AEROSPHERE 160-9-4.8 mcg/actuation HFA aerosol inhaler Generic drug: baysjulkdq-lffnkyoq-orozftldxy Inhale 2 puffs in the morning and 2 puffs before bedtime. cholecalciferol (vitamin D3) 5,000 units tablet clonazePAM 0.25 mg disintegrating tablet Commonly known as: KlonoPIN cyclobenzaprine 7.5 MG tablet Commonly known as: FEXMID diclofenac sodium 1 % gel Commonly known as: VOLTAREN Apply 2 g topically in the morning and 2 g at noon and 2 g in the evening and 2 g before bedtime. diphenhydrAMINE 50 mg capsule Commonly known as: BENADRYL doxepin 75 mg capsule Commonly known as: SINEquan doxycycline 100 mg capsule Commonly known as: VIBRAMYCIN Take 1 capsule (100 mg total) by mouth in the morning and 1 capsule (100 mg total) before bedtime. Do all this for 10 days. empagliflozin 10 mg tablet tablet Commonly known as: JARDIANCE Take 1 tablet (10 mg total) by mouth in the morning. gabapentin 100 mg capsule Commonly known as: NEURONTIN lamoTRIgine 100 mg tablet Commonly known as: LaMICtal ondansetron 4 mg tablet Commonly known as: ZOFRAN pantoprazole 40 mg EC tablet Commonly known as: PROTONIX Take 1 tablet (40 mg total) by mouth every morning before breakfast. potassium chloride 20 MEQ CR tablet Commonly known as: KLOR-CON M 20 propranolol LA 80 mg 24 hr capsule Commonly known as: INDERAL LA spironolactone 25 mg tablet Commonly known as: ALDACTONE Take 1 tablet (25 mg total) by mouth in the morning. SUMAtriptan 25 mg tablet Commonly known as: IMITREX SUMAtriptan 50 mg tablet Commonly known as: IMITREX topiramate 50 mg tablet Commonly known as: TOPAMAX torsemide 20 mg tablet Commonly known as: DEMADEX Take 4 tablets (80 mg total) by mouth daily. TAKE 4 TABLETS BY MOUTH IN THE MORNING AND 2 TABS IN THE EVENING PRN venlafaxine XR 150 mg 24 hr capsule Commonly known as: EFFEXOR-XR venlafaxine XR 75 mg 24 hr capsule Commonly known as: EFFEXOR XR > 30 minutes were spent on discharging this patient. documented in this encounterUniversity [facility] History of Present illness Narrative* Rebeccabaudilio Martinez RCP - 07/27/2023 10:36 AM EDTSummary: Home O2 Evaluation 07/27/23 1025 Home Oxygen Qualification - Resting Method *Complete within 48 Hrs of Discharge SpO2 On Room Air At Rest 95 % Home Oxygen Qualification - Exercise/Ambulation Method SpO2 On Room Air With Exercise/Ambulation 86 % Amount Of O2 Applied During Exercise/Ambulation To Keep SpO2 >88% 2 L/min SpO2 On Applied O2 With Exercise/Ambulation 95 % Patient qualifies for home O2. Patient dropped to 86% on room air while ambulating. Patient placed on 2L NC. Spo2 now 95% on 2L with ambulation. * Rajni Gimenez MD - 07/26/2023 10:02 AM EDT ADULT DAILY PROGRESS NOTE: Assessment: (She is improved from admission. SaO2 in the mid 90's on NC oxygen and her mental status has improved. She states that she acts drunk when her oxygen is low. She has untreated BONY but her roommate/caregiver states that her saturations were in the 70's yesterday not associated with sleep, althoughit may have been associated with exertion. Clinically she does not have pneumonia and I would characterize this more as exacerbation of COPD. The dyspnea/hypoxia does not seem related to exacerbationof her diastolic CHF.). Plan: (NC oxygen during the day, BiPAP with bleed in at night when sleeping. Continue aerosols, steroids,oral doxycycline. Resume oral torsemide as at home and also her psych medications. Further pending her course.). SUBJECTIVE: Symptoms: (She tolerated the BiPAP for much of the night and is feeling better. Her mental status is cleared. She has a little bit of cough. States she made minimal urine with the IV Lasix dose. She doesn't recall seeing me last night.). Temp: [36.4 C (97.5 F)-36.8 C (98.2 F)] 36.6 C (97.8 F) Pulse: [49-91] 79 Resp: [16-22] 20 BP: (94-158)/(57-104) 116/84 FiO2 (%): [21 %-40 %] 21 % SpO2: [85 %-99 %] 96 % O2 Device: Nasal cannula O2 Flow Rate (L/min): [2 L/min] 2 L/min O2 Device: Nasal cannula I/O last 3 completed shifts: In: 1001.4 [P.O.:950; I.V.:6; IV Piggyback:45.4] Out: 1325 [Urine:1325] No intake/output data recorded. OBJECTIVE: General Appearance: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 OT as appropriate 23. Utilize diversional activities 24. Educate patient and patient textiles sales representative how to maintain a safe environment during visitationtimes (notify nurse prior to leaving bedside) 25. Consider appropriateness of medical or non-medical assembly 26. Set up voiding schedule as appropriate (every 2 hours) Outcome: Progressing Note: Evaluation of progress towards goal: PT is free of falls, hourly rounding is completed, area is kept clear. [facility]03-31-2024 Plan of care note* Plan of Care - Christy Andrew RCP - 07/26/2023 7:33 AM EDT Problem: Inadequate Breathing Pattern Goal: Patient will achieve/maintain normal respiratory rate/effort Description: Patient's goal is: INTERVENTIONS 1. Assess and monitor respiratory rate, effort, breathing pattern, and oxygenation 2. Monitor patient for restlessness, anxiety, air hunger 3. Assess physical activity tolerance 4. Assess tobacco history; ask, advise, and refer as appropriate 5. Collaborate with interdisciplinary team and initiate plans/interventions as needed Note: Evaluation of progress towards goal: 07/26/23 0721 Vital Signs Pulse 73 Heart Rate Source Monitor Resp 20 SpO2 92 % O2 Device Nasal cannula O2 Flow Rate (L/min) 2 L/min Respiratory Assessment Assessment Type Pre-treatment Level of Consciousness Alert Respiratory Pattern Regular Chest Assessment Chest expansion symmetrical Bilateral Breath Sounds Diminished Location Specific No Inhalation Therapy Delivery Source Oxygen Device Nebulizer Duration (Minutes) 10 Position Semi [facility]03-31-2024 Plan of care note* Plan of Care - Lissette Mathews RN - 07/26/2023 4:47 AM EDT Problem: Pain Goal: Patient goal is pain score less than 4, able to rest, and participant in treatment plan as appropriate Description: INTERVENTIONS: 1. Encourage patient or legal textiles sales representative to report early pain and ask [...] per policy 9. Teach patient or legal textiles sales representative interventions for comforting Outcome: Progressing Note: Evaluation of progress towards goal: No c/o pain voiced thus far this shift. NO nonverbal s/sx pain noted Problem: Safety Goal: Patient will be injury free during hospitalization Description: INTERVENTIONS: 1. Assess patient's risk for falls and implement fall prevention plan of care per policy 2. Provide and maintain a safe environment 3. Proper use of double Identifiers 4. Medication administration using the 5 rights 5. Hand hygiene 6. Specimens are labeled at the bedside 7. Instruct patient/ patient textiles sales representative about use of safety devices 8. Include patient/ patient textiles sales representative in decisions related to safety Outcome: Progressing Note: Evaluation of progress towards goal: Remains free from injury. Safety precautions maintained. Problem: Knowledge Deficit Goal: Patient/patient textiles sales representative demonstrates understanding of disease process, treatment plan,medications, and discharge instructions Description: INTERVENTIONS 1. Complete learning assessment and assess knowledge base 2. Provide teaching at level of understanding 3. Provide teaching via preferred learning method(s) Outcome: Progressing Note: Evaluation of progress towards goal: Plan of care reviewed, no questions/concerns voiced. Allinterventions explained prior to initiating. Problem: Moderate - High Risk Fall Score Description: Shearer Fall Score of =/> 25 or indicated by [facility] Assessment Goal: Patient should be free from fall Description: Interventions: 1. [place]ibert to environment 2. Hourly rounds addressing the [...] non-skid footwear 11. Teach patient and patient textiles sales representative to maintain environment for safety and [...] (cane, walker) within reach 19. Request patient textiles sales representative bring adaptive equipment/mobility aids from home or obtain and provide as needed 20. Consult pharmacy regarding effects of med's affecting mobility, cognition, and alternatives 21. Obtain physician order for PT if risk factors associated with mobility are present 22. Obtain physician order for OT as appropriate 23. Utilize diversional activities 24. Educate patient and patient textiles sales representative how to maintain a safe environment during visitationtimes (notify nurse prior to leaving bedside) 25. Consider appropriateness of medical or non-medical assembly 26. Set up voiding schedule as appropriate (every 2 hours) Outcome: Progressing Note: Evaluation of progress towards goal: Remains free from falls. Gait steady when standing and taking 1-2 steps to BSC. Tolerating well. No c/o dizziness or lightheadedness. Fall precautions maintained. Problem: Urinary Incontinence Goal: Perineal skin integrity [...] Progressing Note: Evaluation of progress towards goal: Perineal skin intact. Problem: Inadequate Gas Exchange Goal: Patient is adequately oxygenated and ventilation is improved Description: Patient's goal is: INTERVENTIONS 1. Monitor vital signs, oxygen saturation, respiratory status to include rate, depth, effort, lung sounds, mental status, cyanosis, and labs (ABGs) 2. Administer oxygen as indicated 3. Position patient to optimize gas exchange 4. Instruct patient to turn, cough, and deep breathe; encourage incentive spirometer if indicated 5. Collaborate with Respiratory Therapy for inhaled medication and therapeutic adjuncts 6. Assess skin when indicated 7. Coordinate care and interventions to conserve energy 8. Educate and offer resources for tobacco cessation, if indicated Outcome: Progressing Note: Evaluation of progress towards goal: Pt o2 sats wnl on bipap et currently while on 2lpm NC. No distress noted. PT denies shortness of breath. [employer] [id number] History and physical note* Rajni Gimenez MD - 07/25/2023 9:07 PM EDT Images from the original note were not included. GENERAL HISTORY AND PHYSICAL: 07/25/23 PROBLEM: Principal Problem: Hypoxia HISTORY OF PRESENT ILLNESS: Monet Recinos is an 63 y.o. White or female with morbid obesity, mental health issues, untreated BONY, COPD with 50 years of smoking, quitting 2 years ago, CAD s/p CABG, and diastolic CHF. She was seen in the ER yesterday with increased SOB and history of increased discolored sputum.She has felt hot and cold. She improved with Duoneb and was sent home on doxycycline. She returned with continued SOB. She was noted to have SaO2 of 85% in room air and VBG with pH 7.22, pCO2 67.8. CXR clear. EKG no ischemia and troponin negative. PAST MEDICAL HISTORY: Past Medical History: Diagnosis Date Agoraphobia Angina at rest Anxiety BiPAP (biphasic positive airway pressure) dependence Patient states she no longer uses a BIPAP 01/28/23 Bipolar disorder ([facility]) Breast injury CHF (congestive heart failure) ([facility]) Chipped tooth Chronic kidney disease COPD (chronic obstructive pulmonary disease) ([facility]) Coronary artery disease Dementia ([facility]) Depression Diarrhea frequent bouts /involuntary Dizziness GERD (gastroesophageal reflux disease) Headache History of coronary artery bypass graft 08/14/2020 Liver disease Low back pain Memory loss Myocardial infarction ([facility]) Apr 2009, swith stent placement Obesity BONY treated with BiPAP 07/31/2022 Osteoarthritis Panic disorder Psoriasis PTSD (post-traumatic stress disorder) Shortness of breath Sleep apnea Visual impairment glasses PAST SURGICAL HISTORY: Past Surgical History: Procedure Laterality Date BREAST BIOPSY BREAST CYST EXCISION Cardiac catheterization N/A 01/09/2020 Performed by Yefri Khan MD at [facility] Cardiac catheterization-LV Cors N/A 08/06/2020 Performed by Hazel Painting MD at [facility] SECTION CHOLECYSTECTOMY COLONOSCOPY N/A 04/03/2017 Performed by Jose Beaver MD at [facility] Coronary angiogram and left ventricular gram/pressure N/A 01/09/2020 Performed by Yefri Khan MD at [facility] CORONARY ANGIOPLASTY WITH STENT PLACEMENT CORONARY ARTERY BYPASS GRAFT X4/ THOMPSON/ SVG X3 / RIGHT UPPER LEG OPEN VEIN HARVEST/ LEFT UPPER LEG OPEN VEING HARVEST /GINETTE N/A 08/13/2020 Performed by Leroy Meng MD at [facility] Drug eluting stent left anterior descending N/A 01/09/2020 Performed by Yefri Khan MD at [facility] EXCISION SEROMA LOWER EXTREMITY Left 10/07/2022 Performed by Victor Hugo Vincent DO at [facility] Intravascular ultrasound coronary N/A 08/06/2020 Performed by Hazel Painting MD at [facility] Intravascular ultrasound coronary N/A 01/09/2020 Performed by Yefri Khan MD at [facility] NOTCHARGED/Thrombolysis arterial initial treatment N/A 01/09/2020 Performed by Yefri Khan MD at [facility] TONSILLECTOMY Travel History Travel Screening Question Response Have you been in contact with someone who was sick? No / Unsure Do you have any of the following new or worsening symptoms? Shortness of breath Have you traveled internationally or domestically in the last month? No Travel History Travel since 06/25/23 No documented travel since 06/25/23 SOCIAL HISTORY: Social History Socioeconomic History Marital status: Single Spouse name: Not on file Number of children: Not on file Years of education: Not on file Highest education level: Not on file Occupational History Not on file Tobacco Use Smoking status: Former Packs/day: 1.00 Years: 40.00 Additional pack years: 0.00 Total pack years: 40.00 Types: Cigarettes Quit date: 09/2021 Years since quittin.8 Smokeless tobacco: Former Types: Chew Tobacco comments: 5-6 cigerettes a day Vaping Use Vaping Use: Former Substance and Sexual Activity Alcohol use: Not Currently Comment: last use 15 years ago Drug use: Not Currently Types: Cocaine, Marijuana Sexual activity: Defer Other Topics Concern Caffeine Use Yes Social History Narrative Not on file Social Determinants of Health Financial Resource Strain: Medium Risk (07/25/2023) Overall Financial Resource Strain (CARDIA) Difficulty of Paying Living Expenses: Somewhat hard Food Insecurity: No Food Insecurity (07/25/2023) Hunger Screening Food Insecurity - Worry: Never True Food Insecurity - Inability: Never True Transportation Needs: No Transportation Needs (07/25/2023) PRAPARE - Transportation Lack of Transportation (Medical): No Lack of Transportation (Non-Medical): No Physical Activity: Inactive (07/25/2023) Exercise Vital Sign Days of Exercise per Week: 0 days Minutes of Exercise per Session: 0 min Stress: No Stress Concern Present (07/25/2023) [place] [facility] [employer] - Occupational Stress Questionnaire Feeling of Stress : Only a little Recent Concern: Stress - Stress Concern Present (07/25/2023) [place] [facility] - Occupational Stress Questionnaire Feeling of Stress : Very much Social Connections: Moderately Isolated (07/25/2023) Social Connection and Isolation Panel [NHANES] Frequency of Communication with Friends and Family: Three times a week Frequency of Social Gatherings with Friends and Family: Three times a week Attends Yarsanism Services: More than 4 times per year Active Member of Clubs or Organizations: No Attends Club or Organization Meetings: Never Marital Status: Interpersonal Safety: Not At Risk (07/25/2023) Humiliation, Afraid, Rape, and Kick questionnaire Fear of Current or Ex-Partner: No Emotionally Abused: No Physically Abused: No Sexually Abused: No Housing Instability: Low Risk (07/25/2023) Housing Instability Housing Instability: No ALLERGIES: Allergies Allergen Reactions Penicillins Anaphylaxis Morphine Other (See Comments) I hallucinate This is not a true allergy HOME MEDICATIONS: Medications Prior to Admission Medication Sig Dispense Refill Last Dose albuterol (ACCUNEB) 0.63 mg/3 mL nebulizer solution Inhale 3 mL (0.63 mg total) by nebulization every 6 (six) hours as needed for wheezing. albuterol (PROVENTIL HFA;VENTOLIN HFA) 90 mcg/actuation inhaler INHALE 2 PUFF BY MOUTH AND INTO THELUNGS EVERY 4-6 HOURS NEEDED FOR BREATHING ISSUES FOR 17 DAYS for 17 ARIPiprazole (ABILIFY) 15 mg tablet TAKE 1 TABLET BY MOUTH EVERYDAY AT BEDTIME aspirin 81 mg Take 1 tablet (81 mg total) by mouth in the morning. atorvastatin (LIPITOR) 80 mg tablet TAKE 1 TABLET (80 MG TOTAL) BY MOUTH IN THE MORNING 90 tablet bkjnnyjdxp-qcdkkqln-tdncajoqkx (BREZTRI AEROSPHERE) 160-9-4.8 mcg/actuation HFA aerosol inhaler Inhale 2 puffs in the morning and 2 puffs before bedtime. 10.7 g 10 cholecalciferol, vitamin D3, 5,000 units tablet Take 2 tablets (10,000 Units total) by mouth in themorning. 07/24/2023 clonazePAM (KlonoPIN) 0.25 mg disintegrating tablet Dissolve 1 tablet (0.25 mg total) on tongue 2 (two) times a day as needed. 07/25/2023 cyclobenzaprine (FEXMID) 7.5 MG tablet Take 1 tablet (7.5 mg total) by mouth 2 (two) times a day asneeded for muscle spasms. 07/25/2023 diclofenac sodium (VOLTAREN) 1 % gel Apply 2 g topically in the morning and 2 g at noon and 2 g in the evening and 2 g before bedtime. 100 g 2 07/25/2023 diphenhydrAMINE (BENADRYL) 50 mg capsule Take 1 capsule (50 mg total) by mouth every 6 (six) hours as needed for itching. 07/25/2023 doxepin (SINEquan) 75 mg capsule 1 capsule at bedtime Orally Once a day 07/24/2023 doxycycline (VIBRAMYCIN) 100 mg capsule Take 1 capsule (100 mg total) by mouth in the morning and 1capsule (100 mg total) before bedtime. Do all this for 10 days. 20 capsule 0 07/25/2023 empagliflozin (JARDIANCE) 10 mg tablet tablet Take 1 tablet (10 mg total) by mouth in the morning. 30 tablet 11 07/25/2023 gabapentin (NEURONTIN) 100 mg capsule Take 2 capsules (200 mg total) by mouth 3 (three) times a day. 07/25/2023 lamoTRIgine (LaMICtal) 100 mg tablet TAKE 1 TABLET BY MOUTH EVERY DAY IN THE MORNING 07/25/2023 ondansetron (ZOFRAN) 4 mg tablet Take 1 tablet (4 mg total) by mouth every 8 (eight) hours as needed for nausea or vomiting. 07/25/2023 pantoprazole (PROTONIX) 40 mg EC tablet Take 1 tablet (40 mg total) by mouth every morning before breakfast. 07/25/2023 potassium chloride (KLOR-CON M 20) 20 MEQ CR tablet Take 1 tablet (20 mEq total) by mouth in the morning. 07/25/2023 propranolol LA (INDERAL LA) 80 mg 24 hr capsule Take 1 capsule (80 mg total) by mouth in the morning. 07/25/2023 spironolactone (ALDACTONE) 25 mg tablet Take 1 tablet (25 mg total) by mouth in the morning. 30 tablet 11 07/25/2023 SUMAtriptan (IMITREX) 50 mg tablet TAKE 1 TABLET BY MOUTH DIRECTED 07/24/2023 topiramate (TOPAMAX) 50 mg tablet TAKE 1 TABLET BY MOUTH TWICE A DAY FOR 30 DAYS 07/25/2023 torsemide (DEMADEX) 20 mg tablet Take 4 tablets (80 mg total) by mouth daily. TAKE 4 TABLETS BY MOUTH IN THE MORNING AND 2 TABS IN THE EVENING PRN 540 tablet 1 07/25/2023 venlafaxine XR (EFFEXOR XR) 75 mg 24 hr capsule TAKE 1 CAPSULE BY MOUTH EVERY DAY IN THE MORNING 07/25/2023 venlafaxine XR (EFFEXOR-XR) 150 mg 24 hr capsule Take 225 mg by mouth in the morning. 07/25/2023 SUMAtriptan (IMITREX) 25 mg tablet Take by mouth as needed. IMMUNIZATIONS: There is no immunization history on file for this patient. REVIEW OF SYSTEMS: Review of Systems Constitutional: She has felt hot and cold, no documented fever. HENT: Positive for congestion. Respiratory: Positive for cough and shortness of breath. Cardiovascular: Negative for chest pain. Gastrointestinal: Negative for abdominal pain, blood in stool and black tarry stool. Stools are often loose. Genitourinary: She recently passed a vaginal blood clot. She is not bleeding currently. Musculoskeletal: Positive for myalgias and arthralgias. Neurological: General weakness, no lateralizing weakness. BP 121/71 Pulse 53 Temp 36.8 C (98.2 F) (Axillary) Resp 17 Ht 175.3 cm (5' 9.02 ) Wt 121.5 kg (267 lb 13.7 oz) SpO2 96% No Comment: n/a BMI 39.54 kg/m O2 Device: Bi-PAP PHYSICAL EXAM: Physical Exam Constitutional She is oriented to person, place, and time. She is comfortable on BiPAP. Interacts appropriately. No conversational dyspnea. Neck Neck supple. Cardiovascular: Normal rate and regular rhythm. No murmur heard.no gallop Pulmonary/Chest: Equal breath sounds bilaterally. Crackles at the lung bases, no wheezing. Abdominal: She exhibits no distension. There is no abdominal tenderness. Obese Musculoskeletal: Cervical back: Neck supple. Comments: 1+ bilateral below the knee edema. Neurological She is alert and oriented to person, place, and time. ASSESSMENT: This appears to be exacerbation of COPD and untreated BONY with hypoxemia when she sleeps. Morbid obesity and history of CHF with preserved LV EF. She is improved with aerosol treatments and BiPAP support. No evidence of acute pneumonia. PLAN: Noninvasive ventilatory support through the night while sleeping, with O2 bleed in as needed. Aerosols, steroids, doxycycline. She is stable and further pending her course. [employer] [id number] History and physical note* Rajni Gimenez MD - 07/25/2023 9:07 PM EDT Images from the original note were not included. GENERAL HISTORY AND PHYSICAL: 07/25/23 PROBLEM: Principal Problem: Hypoxia HISTORY OF PRESENT ILLNESS: Monet Recinos is an 63 y.o. White or female with morbid obesity, mental health issues, untreated BONY, COPD with 50 years of smoking, quitting 2 years ago, CAD s/p CABG, and diastolic CHF. She was seen in the ER yesterday with increased SOB and history of increased discolored sputum.She has felt hot and cold. She improved with Duoneb and was sent home on doxycycline. She returned with continued SOB. She was noted to have SaO2 of 85% in room air and VBG with pH 7.22, pCO2 67.8. CXR clear. EKG no ischemia and troponin negative. PAST MEDICAL HISTORY: Past Medical History: Diagnosis Date Agoraphobia Angina at rest Anxiety BiPAP (biphasic positive airway pressure) dependence Patient states she no longer uses a BIPAP 01/28/23 Bipolar disorder ([facility] Breast injury CHF (congestive heart failure) ([facility]) Chipped tooth Chronic kidney disease COPD (chronic obstructive pulmonary disease) ([facility]) Coronary artery disease Dementia ([facility]) Depression Diarrhea frequent bouts /involuntary Dizziness GERD (gastroesophageal reflux disease) Headache History of coronary artery bypass graft 08/14/2020 Liver disease Low back pain Memory loss Myocardial infarction ([facility]) Apr 2009, swith stent placement Obesity BONY treated with BiPAP 07/31/2022 Osteoarthritis Panic disorder Psoriasis PTSD (post-traumatic stress disorder) Shortness of breath Sleep apnea Visual impairment glasses PAST SURGICAL HISTORY: Past Surgical History: Procedure Laterality Date BREAST BIOPSY BREAST CYST EXCISION Cardiac catheterization N/A 01/09/2020 Performed by Yefri Khan MD at [facility] Cardiac catheterization-LV Cors N/A 08/06/2020 Performed by Hazel Painting MD at [facility] SECTION CHOLECYSTECTOMY COLONOSCOPY N/A 04/03/2017 Performed by oJse Beaver MD at [facility] Coronary angiogram and left ventricular gram/pressure N/A 01/09/2020 Performed by Yefri Khan MD at [facility] CORONARY ANGIOPLASTY WITH STENT PLACEMENT CORONARY ARTERY BYPASS GRAFT X4/ THOMPSON/ SVG X3 / RIGHT UPPER LEG OPEN VEIN HARVEST/ LEFT UPPER LEG OPEN VEING HARVEST /GINETTE N/A 08/13/2020 Performed by Leroy Meng MD at [facility] Drug eluting stent left anterior descending N/A 01/09/2020 Performed by Yefri Khan MD at [facility] EXCISION SEROMA LOWER EXTREMITY Left 10/07/2022 Performed by Victor Hugo Vincent DO at [facility] Intravascular ultrasound coronary N/A 08/06/2020 Performed by Hazel Painting MD at [facility] Intravascular ultrasound coronary N/A 01/09/2020 Performed by Yefri Khan MD at [facility] NOTCHARGED/Thrombolysis arterial initial treatment N/A 01/09/2020 Performed by Yefri Khan MD at [facility] TONSILLECTOMY Travel History Travel Screening Question Response Have you been in contact with someone who was sick? No / Unsure Do you have any of the following new or worsening symptoms? Shortness of breath Have you traveled internationally or domestically in the last month? No Travel History Travel since 06/25/23 No documented travel since 06/25/23 SOCIAL HISTORY: Social History Socioeconomic History Marital status: Single Spouse name: Not on file Number of children: Not on file Years of education: Not on file Highest education level: Not on file Occupational History Not on file Tobacco Use Smoking status: Former Packs/day: 1.00 Years: 40.00 Additional pack years: 0.00 Total pack years: 40.00 Types: Cigarettes Quit date: 09/2021 Years since quittin.8 Smokeless tobacco: Former Types: Chew Tobacco comments: 5-6 cigerettes a day Vaping Use Vaping Use: Former Substance and Sexual Activity Alcohol use: Not Currently Comment: last use 15 years ago Drug use: Not Currently Types: Cocaine, Marijuana Sexual activity: Defer Other Topics Concern Caffeine Use Yes Social History Narrative Not on file Social Determinants of Health Financial Resource Strain: Medium Risk (07/25/2023) Overall Financial Resource Strain (CARDIA) Difficulty of Paying Living Expenses: Somewhat hard Food Insecurity: No Food Insecurity (07/25/2023) Hunger Screening Food Insecurity - Worry: Never True Food Insecurity - Inability: Never True Transportation Needs: No Transportation Needs (07/25/2023) PRAPARE - Transportation Lack of Transportation (Medical): No Lack of Transportation (Non-Medical): No Physical Activity: Inactive (07/25/2023) Exercise Vital Sign Days of Exercise per Week: 0 days Minutes of Exercise per Session: 0 min Stress: No Stress Concern Present (07/25/2023) [place] [facility] [employer] - Occupational Stress Questionnaire Feeling of Stress : Only a little Recent Concern: Stress - Stress Concern Present (07/25/2023) [place] [facility] [employer] - Occupational Stress Questionnaire Feeling of Stress : Very much Social Connections: Moderately Isolated (07/25/2023) Social Connection and Isolation Panel [NHANES] Frequency of Communication with Friends and Family: Three times a week Frequency of Social Gatherings with Friends and Family: Three times a week Attends Yarsanism Services: More than 4 times per year Active Member of Clubs or Organizations: No Attends Club or Organization Meetings: Never Marital Status: Interpersonal Safety: Not At Risk (07/25/2023) Humiliation, Afraid, Rape, and Kick questionnaire Fear of Current or Ex-Partner: No Emotionally Abused: No Physically Abused: No Sexually Abused: No Housing Instability: Low Risk (07/25/2023) Housing Instability Housing Instability: No ALLERGIES: Allergies Allergen Reactions Penicillins Anaphylaxis Morphine Other (See Comments) I hallucinate This is not a true allergy HOME MEDICATIONS: Medications Prior to Admission Medication Sig Dispense Refill Last Dose albuterol (ACCUNEB) 0.63 mg/3 mL nebulizer solution Inhale 3 mL (0.63 mg total) by nebulization every 6 (six) hours as needed for wheezing. albuterol (PROVENTIL HFA;VENTOLIN HFA) 90 mcg/actuation inhaler INHALE 2 PUFF BY MOUTH AND INTO THELUNGS EVERY 4-6 HOURS NEEDED FOR BREATHING ISSUES FOR 17 DAYS for 17 ARIPiprazole (ABILIFY) 15 mg tablet TAKE 1 TABLET BY MOUTH EVERYDAY AT BEDTIME aspirin 81 mg Take 1 tablet (81 mg total) by mouth in the morning. atorvastatin (LIPITOR) 80 mg tablet TAKE 1 TABLET (80 MG TOTAL) BY MOUTH IN THE MORNING 90 tablet emdlqvnilc-utujepjo-tlxpeycuzv (BREZTRI AEROSPHERE) 160-9-4.8 mcg/actuation HFA aerosol inhaler Inhale 2 puffs in the morning and 2 puffs before bedtime. 10.7 g 10 cholecalciferol, vitamin D3, 5,000 units tablet Take 2 tablets (10,000 Units total) by mouth in themorning. 07/24/2023 clonazePAM (KlonoPIN) 0.25 mg disintegrating tablet Dissolve 1 tablet (0.25 mg total) on tongue 2 (two) times a day as needed. 07/25/2023 cyclobenzaprine (FEXMID) 7.5 MG tablet Take 1 tablet (7.5 mg total) by mouth 2 (two) times a day asneeded for muscle spasms. 07/25/2023 diclofenac sodium (VOLTAREN) 1 % gel Apply 2 g topically in the morning and 2 g at noon and 2 g in the evening and 2 g before bedtime. 100 g 2 07/25/2023 diphenhydrAMINE (BENADRYL) 50 mg capsule Take 1 capsule (50 mg total) by mouth every 6 (six) hours as needed for itching. 07/25/2023 doxepin (SINEquan) 75 mg capsule 1 capsule at bedtime Orally Once a day 07/24/2023 doxycycline (VIBRAMYCIN) 100 mg capsule Take 1 capsule (100 mg total) by mouth in the morning and 1capsule (100 mg total) before bedtime. Do all this for 10 days. 20 capsule 0 07/25/2023 empagliflozin (JARDIANCE) 10 mg tablet tablet Take 1 tablet (10 mg total) by mouth in the morning. 30 tablet 11 07/25/2023 gabapentin (NEURONTIN) 100 mg capsule Take 2 capsules (200 mg total) by mouth 3 (three) times a day. 07/25/2023 lamoTRIgine (LaMICtal) 100 mg tablet TAKE 1 TABLET BY MOUTH EVERY DAY IN THE MORNING 07/25/2023 ondansetron (ZOFRAN) 4 mg tablet Take 1 tablet (4 mg total) by mouth every 8 (eight) hours as needed for nausea or vomiting. 07/25/2023 pantoprazole (PROTONIX) 40 mg EC tablet Take 1 tablet (40 mg total) by mouth every morning before breakfast. 07/25/2023 potassium chloride (KLOR-CON M 20) 20 MEQ CR tablet Take 1 tablet (20 mEq total) by mouth in the morning. 07/25/2023 propranolol LA (INDERAL LA) 80 mg 24 hr capsule Take 1 capsule (80 mg total) by mouth in the morning. 07/25/2023 spironolactone (ALDACTONE) 25 mg tablet Take 1 tablet (25 mg total) by mouth in the morning. 30 tablet 11 07/25/2023 SUMAtriptan (IMITREX) 50 mg tablet TAKE 1 TABLET BY MOUTH DIRECTED 07/24/2023 topiramate (TOPAMAX) 50 mg tablet TAKE 1 TABLET BY MOUTH TWICE A DAY FOR 30 DAYS 07/25/2023 torsemide (DEMADEX) 20 mg tablet Take 4 tablets (80 mg total) by mouth daily. TAKE 4 TABLETS BY MOUTH IN THE MORNING AND 2 TABS IN THE EVENING PRN 540 tablet 1 07/25/2023 venlafaxine XR (EFFEXOR XR) 75 mg 24 hr capsule TAKE 1 CAPSULE BY MOUTH EVERY DAY IN THE MORNING 07/25/2023 venlafaxine XR (EFFEXOR-XR) 150 mg 24 hr capsule Take 225 mg by mouth in the morning. 07/25/2023 SUMAtriptan (IMITREX) 25 mg tablet Take by mouth as needed. IMMUNIZATIONS: There is no immunization history on file for this patient. REVIEW OF SYSTEMS: Review of Systems Constitutional: She has felt hot and cold, no documented fever. HENT: Positive for congestion. Respiratory: Positive for cough and shortness of breath. Cardiovascular: Negative for chest pain. Gastrointestinal: Negative for abdominal pain, blood in stool and black tarry stool. Stools are often loose. Genitourinary: She recently passed a vaginal blood clot. She is not bleeding currently. Musculoskeletal: Positive for myalgias and arthralgias. Neurological: General weakness, no lateralizing weakness. BP 121/71 Pulse 53 Temp 36.8 C (98.2 F) (Axillary) Resp 17 Ht 175.3 cm (5' 9.02 ) Wt 121.5 kg (267 lb 13.7 oz) SpO2 96% No Comment: n/a BMI 39.54 kg/m O2 Device: Bi-PAP PHYSICAL EXAM: Physical Exam Constitutional She is oriented to person, place, and time. She is comfortable on BiPAP. Interacts appropriately. No conversational dyspnea. Neck Neck supple. Cardiovascular: Normal rate and regular rhythm. No murmur heard.no gallop Pulmonary/Chest: Equal breath sounds bilaterally. Crackles at the lung bases, no wheezing. Abdominal: She exhibits no distension. There is no abdominal tenderness. Obese Musculoskeletal: Cervical back: Neck supple. Comments: 1+ bilateral below the knee edema. Neurological She is alert and oriented to person, place, and time. ASSESSMENT: This appears to be exacerbation of COPD and untreated BONY with hypoxemia when she sleeps. Morbid obesity and history of CHF with preserved LV EF. She is improved with aerosol treatments and BiPAP support. No evidence of acute pneumonia. PLAN: Noninvasive ventilatory support through the night while sleeping, with O2 bleed in as needed. Aerosols, steroids, doxycycline. She is stable and further pending her course. [facility] Procedure: Chest x-ray performed Number of views:2 History:Shortness of breath Comparison:07/24/2023 Findings: The heart and lungs show no acute findings, and the mediastinum and satnam are grossly negative . Impression: 1. No acute change. Finalized by Abdelrahman Patel MD on 07/25/2023 5:16 [id number] Physician Emergency department Note* Mary Lock MD - 07/25/2023 5:10 PM EDTAssociated Order(s): Critical Care Images from the original note were not included. History Chief Complaint Patient presents with Shortness of Breath Initial evaluation performed at 5:[address] Lock. Patient is a 63 y.o. female who presents to the ED with friend and roommate at bedside for evaluation of shortness of breath. Pt reports history of COPD. Not on home O2 and BONY not compliant with BIPAP. Pt was evaluated in ED yesterday and was diagnosed with right lower lobe pneumonia. Pt was offered admit and wanted to be discharged instead. Pt reports receiving a breathing treatment yesterday, but no steroids. Pt states when she is on oxygen her symptoms partially resolve. Pt reports being discharged with antibiotic that she had started this morning. Pt reports experiencing shortness of breath for the past week along with LE swelling on and off formany months. Friend reports since March, pt's symptoms have worsened overtime. Pt was admitted and intubated at that time for covid. Pt denies experiencing any abdominal pain. Pt denies recently taking any steroids. Pt reports use of inhaler and albuterol nebulizer treatment at home that helps with symptoms. Pt reports history of open heart surgery. Pt previously smoked and has quit sinceopen heart surgery. Pt is allergic to Penicillin and Morphine. History provided by: Patient and friend Shortness of Breath Severity: Mild Onset quality: Sudden Duration: 1 week Progression: Worsening Associated symptoms: wheezing Associated symptoms: no abdominal pain, no chest pain, no cough, no fever, no rash and no vomiting Problem List Items Addressed This Visit Respiratory * (Principal) Hypoxia - Primary Other Visit Diagnoses COPD exacerbation ([facility]) Relevant Medications ipratropium-albuteroL (DUONEB) 0.5 mg-3 mg(2.5 mg base)/3 mL nebulizer solution 3 mL (Completed) dexAMETHasone sodium phos (PF) (DECADRON) injection 10 mg ipratropium-albuteroL (DUONEB) 0.5 mg-3 mg(2.5 mg base)/3 mL nebulizer solution 3 mL Acute respiratory failure with hypoxia and hypercapnia ([facility]) Past Medical History: Diagnosis Date Agoraphobia Angina at rest Anxiety BiPAP (biphasic positive airway pressure) dependence Patient states she no longer uses a BIPAP 01/28/23 Bipolar disorder ([facility]) Breast injury CHF (congestive heart failure) ([facility]) Chipped tooth COPD (chronic obstructive pulmonary disease) ([facility]) Coronary artery disease Dementia ([facility]) Depression GERD (gastroesophageal reflux disease) History of coronary artery bypass graft 08/14/2020 Liver disease Low back pain Myocardial infarction ([facility]) Apr 2009, swith stent placement Obesity BONY treated with BiPAP 07/31/2022 Osteoarthritis Panic disorder PTSD (post-traumatic stress disorder) Sleep apnea Visual impairment glasses Past Surgical History: Procedure Laterality Date BREAST BIOPSY BREAST CYST EXCISION Cardiac catheterization N/A 01/09/2020 Performed by Yefri Khan MD at [facility] Cardiac catheterization-LV Cors N/A 08/06/2020 Performed by Haezl Painting MD at [facility] SECTION CHOLECYSTECTOMY COLONOSCOPY N/A 04/03/2017 Performed by Jose Beaver MD at [facility] Coronary angiogram and left ventricular gram/pressure N/A 01/09/2020 Performed by Yefri Khan MD at [facility] CORONARY ANGIOPLASTY WITH STENT PLACEMENT CORONARY ARTERY BYPASS GRAFT X4/ THOMPSON/ SVG X3 / RIGHT UPPER LEG OPEN VEIN HARVEST/ LEFT UPPER LEG OPEN VEING HARVEST /GINETTE N/A 08/13/2020 Performed by Leroy Meng MD at [facility] Drug eluting stent left anterior descending N/A 01/09/2020 Performed by Yefri Khan MD at [facility] EXCISION SEROMA LOWER EXTREMITY Left 10/07/2022 Performed by Victor Hugo Vincent DO at [facility] Intravascular ultrasound coronary N/A 08/06/2020 Performed by Hazel Painting MD at [facility] Intravascular ultrasound coronary N/A 01/09/2020 Performed by Yefri Khan MD at [facility] NOTCHARGED/Thrombolysis arterial initial treatment N/A 01/09/2020 Performed by Yefri Khan MD at [facility] TONSILLECTOMY Travel Screening Question Response Have you been in contact with someone who was sick? No / Unsure Do you have any of the following new or worsening symptoms? None of these Have you traveled internationally or domestically in the last month? No Travel History Travel since 06/25/23 No documented travel since 06/25/23 Family History Problem Relation Age of Onset Hypertension Mother Depression Mother Heart failure Mother Alcohol abuse Father Cancer Maternal Grandmother Cervical cancer Maternal Grandmother Breast cancer Neg Hx Social History Substance and Sexual Activity Drug Use No Social History Tobacco Use Smoking status: Former Packs/day: 1.00 Years: 40.00 Additional pack years: 0.00 Total pack years: 40.00 Types: Cigarettes Quit date: 09/2021 Years since quittin.8 Smokeless tobacco: Former Types: Chew Tobacco comments: 5-6 cigerettes a day Vaping Use Vaping Use: Former Substance Use Topics Alcohol use: No Drug use: No Review of Systems Constitutional: Negative for chills and fever. HENT: Negative for nosebleeds and rhinorrhea. Eyes: Negative for discharge and redness. Respiratory: Positive for shortness of breath and wheezing. Negative for cough. Cardiovascular: Negative for chest pain/discomfort and leg swelling. Gastrointestinal: Negative for abdominal pain and vomiting. Genitourinary: Negative for dysuria and hematuria. Musculoskeletal: Negative for arthralgias and joint swelling. Skin: Negative for rash and wound. Neurological: Negative for syncope and facial asymmetry. Physical Exam ED Triage Vitals [07/25/23 1635] Temp Heart Rate Resp BP SpO2 36.5 C (97.7 F) 71 22 141/78 (!) 85 % Temp Source Heart Rate Source Patient Position BP Location FiO2 (%) Oral Pulse Ox -- -- -- Vitals: 07/25/23 1731 07/25/23 1802 07/25/23 1854 07/25/23 1904 BP: 121/71 Temp: 36.8 C (98.2 F) TempSrc: Axillary Pulse: 65 66 60 58 Resp: 16 16 20 SpO2: 95% 98% 98% 97% MAP (mmHg): 87 Height: Weight: Physical Exam Vitals and nursing note reviewed. Constitutional: Appearance: Normal appearance. HENT: Head: Normocephalic and atraumatic. Right Ear: External ear normal. Left Ear: External ear normal. Nose: Nose normal. Mouth/Throat: Mouth: Mucous membranes are moist. Eyes: Extraocular Movements: Extraocular movements intact. Pupils: Pupils are equal, round, and reactive to light. Cardiovascular: Rate and Rhythm: Normal rate and regular rhythm. Pulses: Normal pulses. Heart sounds: Normal heart sounds. Pulmonary: Effort: Pulmonary effort is normal. Tachypnea present. Breath sounds: Wheezing present. Comments: Hypoxic on room air Abdominal: General: Abdomen is flat. Bowel sounds are normal. Palpations: Abdomen is soft. Tenderness: There is no abdominal tenderness. Musculoskeletal: General: Normal range of motion. Cervical back: Normal range of motion and neck supple. Right lower le+ Pitting Edema present. Left lower le+ Pitting Edema present. Skin: General: Skin is warm and dry. Capillary Refill: Capillary refill takes less than 2 seconds. Neurological: General: No focal deficit present. Mental Status: She is alert. Procedure Critical Care Performed by: Mary Lock MD Authorized by: Mary Lock MD Critical care provider statement: Critical care time (minutes): 30 Critical care time was exclusive of: Separately billable procedures and treating other patients andteaching time Critical care was necessary to treat or prevent imminent or life-threatening deterioration of the following conditions: Respiratory failure Critical care was time spent personally by me on the following activities: Blood draw for specimens, development of treatment plan with patient or surrogate, evaluation of patient's response to treatment, interpretation of cardiac output measurements, obtaining history from patient or surrogate, review of old charts, re-evaluation of patient's condition, pulse oximetry, ordering and review of radiographic studies, ordering and review of laboratory studies, ordering and performing treatments andinterventions and examination of patient Re-Evaluation Re-Evaluation ED Course ED Course as of 07/25/231926 Sat Jul 25, 20231724 Chart reviewed. Yesterday's ER workup reviewed: Dimer negative Trop negative BNP negative Patient established with Dr. Meadows. She had recommended BIPAP. Patient does not use. [AV] 1729 Dr. Cardozo noted as PCP, will discuss admit with him. [AV] 1738 Dr. Carrion covering for Dr. Cardozo, he accepted admission kindly. [AV] 1738 Discussed with RT Vicki to place patient on BIPAP and need for VBG. BIPAP will help with patient's tachypnea and wheezing. [AV] [address] Carrion messaged regarding updates. Patient remains AAOx4 and GCS 15, speaking in full sentences at this time. There is no community leader available in the ED, so will workon getting a hold of tele- pulmonology myself. Patient is to go to ICU for further management and close monitoring. [AV] 1833 Dr. Carlos accepted consultation for BIPAP management. Case discussed. [AV] 1835 Dr. Carrion updated by phone call as well. [AV] 1839 Vicki RN informed that patient needs IV decadron. She states she will be administering it shortly. [AV] 1926 Patient did not receive her IV steroids here. Floor nurse Lissette RN messaged to give steroids. [AV] ED Course User Index [AV] Mary Lock MD Clinical Impressions as of 07/25/231926 COPD exacerbation ([facility]) Acute respiratory failure with hypoxia and hypercapnia ([facility]) Hypoxia MDM Medical Decision Making Heena Bob (scribe) documented for Dr. Lock. Chart Reviewed. Date: 07/24/23. Type of Note: ED. Notable for: Pneumonia right lower lobe Chief Complaint: Shortness of breath Differential Diagnosis includes but is not limited to: CAP with failure of treatment at home vs COPD exacerbation vs unlikely PE Plan of Care: Dr. Lock will order Blood gas venous, Troponin I, CBC, BMP, EKG, and XR chest. Will give Rocephin and Duoneb. 5:[address] Lock spoke with Dr. Gimenez who is covering for Dr. Cardozo accepted admission. 6:[address] Lock spoke with Dr. Carrion discussing plan of care for pt. Labs notable for: Creatinine 1.57, Glucose is 107, eGFR is 37, Hemoglobin is 11.3, RDW is 16.6, Neutrophils absolute is 6.7, PCO2 venous is 67.8, Portable HCO3 is 28.0, % O2 sat is 68.0 Imaging was independently viewed by Dr. Lock and is notable for no acute change. However, pending official radiologist read. Dr. Lock discussed lab and imaging results with pt and plan for admission. Pt is understanding andagreeable to plan. Pt does require admission at this time. Dr. Lock re-evaluated the patient after 30 minutes on BIPAP. She is taking in good tidal volumes. She is mentating normally. Amount and/or Complexity of Data Reviewed Labs: ordered. Radiology: ordered. ECG/medicine tests: ordered. Risk Prescription drug management. Decision regarding hospitalization. RESULTS Labs: Labs Reviewed CBC WITH AUTO DIFFERENTIAL - Abnormal; Notable for the following components: Result Value Hemoglobin 11.3 (*) RDW 16.6 (*) Neutrophils Absolute (A) 6.7 (*) All other components within normal limits BASIC METABOLIC PANEL - Abnormal; Notable for the following components: Creatinine 1.57 (*) Glucose 107 (*) eGFR (CKD-EPI)non-race dependent 37 (*) All other components within normal limits BLOOD GAS, VENOUS - Abnormal; Notable for the following components: pH, Venous 7.224 (*) PCO2, Venous 67.8 (*) Portable HCO3 28.0 (*) % O2 Sat 68.0 (*) All other components within normal limits SARS/FLU A+B/RSV BY NAAT/MOLECULAR (M4RT COLLECTION TUBE) BLOOD CULTURE BLOOD CULTURE TROPONIN I BLOOD GAS, VENOUS LACTATE W/ REFLEX Radiology: X-ray chest 2 views Result Date: 07/25/2023 Procedure: Chest x-ray performed Number of views:2 History:Shortness of breath Comparison:07/24/2023Findings: The heart and lungs show no acute findings, and the mediastinum and satnam are grossly negative . Impression: 1. No acute change. Finalized by Abdelrahman Patel MD on 07/25/2023 5:16 PM X-ray chest 1 view Result Date: 07/24/2023 XR CHEST 1 VW HISTORY: Cough, shortness of breath COMPARISON: 05/27/2023 FINDINGS: No pleural effusion or appreciable pneumothorax. Cardiomediastinal silhouette appears stable and nonenlarged. Focal airspace opacity over the peripheral right lower lobe, atelectasis versus pneumonia. Peripherally calc ified structure overlying the left lung base likely reflects left breast cyst seen on chest CT dated 04/14/2023. IMPRESSION: * Focal airspace opacification over the peripheral right lower lobe, atelectasis versus pneumonia. Approved by Resident: Ciaran Narvaez MD on 07/24/2023 9:58 PM I, Tristen Neely MD have personally reviewed the image(s) and agree with and/or edited the report Finalized by Tristen Neely MD on 07/24/2023 10:05 PM NURSING NOTES AND VITALS REVIEWED The nursing notes within the ED encounter and vital signs as below have been reviewed. BP 121/71 Pulse 58 Temp 36.8 C (98.2 F) (Axillary) Resp 20 Ht 175.3 cm (5' 9.02 ) Wt 121.5 kg (267 lb 13.7 oz) SpO2 97% BMI 39.54 kg/m PROGRESS NOTES The plan of care has been discussed with patient including today s results, in addition to providing specific details regarding counseling pertaining to the diagnosis and prognosis. All questions were answered at this time and they are agreeable with the plan ADDITIONAL PROVIDER NOTES At this time the patient has objective evidence of an acute process requiring hospitalization or inpatient management. Medications dexAMETHasone sodium phos (PF) (DECADRON) injection 10 mg (has no administration in time range) ipratropium-albuteroL (DUONEB) 0.5 mg-3 mg(2.5 mg base)/3 mL nebulizer solution 3 mL (has no administration in time range) doxycycline (VIBRAMYCIN) capsule 100 mg (has no administration in time range) cefTRIAXone (ROCEPHIN) IVPB 1000 mg/50 mL in iso-osmotic dextrose (20 mg/mL premix) (0 mg intravenous Stop Bag 07/25/23 1832) ipratropium-albuteroL (DUONEB) 0.5 mg-3 mg(2.5 mg base)/3 mL nebulizer solution 3 mL (3 mL nebulization Given 07/25/23 1731) Medication List None Diagnosis: 1. Hypoxia 2. COPD exacerbation ([facility]) 3. Acute respiratory failure with hypoxia and hypercapnia ([facility]) Disposition: Patient's disposition: Admit Patient's condition is stable. Critical Care time: 30 minutes Provider Statement By electronically signing this emergency patient record, the Emergency Physician/TOP FLAVOR ATTENDANT/PA-C attests that all entries made into the electronic medical record by arianna John prior to the Physician/TOP FLAVOR ATTENDANT/PA-C signature reflect an accurate accounting of the evaluation and care rendered by that Emergency Physician/TOP FLAVOR ATTENDANT/PA-C. The Emergency Physician/TOP FLAVOR ATTENDANT/PA-C assumes full responsibility for those entries. The Emergency Physician/TOP FLAVOR ATTENDANT/PA-C also attests that any patient testing or treatment that was instituted by nursing staff in accordance to Emergency Department Preemptive Guidelines have been reviewed and unless so stated elsewhere in this patient chart, the Physician/TOP FLAVOR ATTENDANT/PA-C agrees with the testing and care provided. No Additional Attestations Heena Tran 07/25/23 1728 Heena Tran 07/25/23 1811 Heena Tran 07/25/23 1812 Heena Tran 07/25/23 1812 Heena Tran 07/25/23 1824 Mary Lock MD 07/25/23 1829 Heena Tran 07/25/23 1837 Heena Tran 07/25/23 1905 Mary Lock MD 07/25/23 192 Mary Lock MD 07/25/231926 [facility] Emergency department Note* Mary Lock MD - 07/25/2023 5:10 PM EDTAssociated Order(s): Critical Care Images from the original note were not included. History Chief Complaint Patient presents with Shortness of Breath Initial evaluation performed at 5:[address] oLck. Patient is a 63 y.o. female who presents to the ED with friend and roommate at bedside for evaluation of shortness of breath. Pt reports history of COPD. Not on home O2 and BONY not compliant with BIPAP. Pt was evaluated in ED yesterday and was diagnosed with right lower lobe pneumonia. Pt was offered admit and wanted to be discharged instead. Pt reports receiving a breathing treatment yesterday, but no steroids. Pt states when she is on oxygen her symptoms partially resolve. Pt reports being discharged with antibiotic that she had started this morning. Pt reports experiencing shortness of breath for the past week along with LE swelling on and off formany months. Friend reports since March, pt's symptoms have worsened overtime. Pt was admitted and intubated at that time for covid. Pt denies experiencing any abdominal pain. Pt denies recently taking any steroids. Pt reports use of inhaler and albuterol nebulizer treatment at home that helps with symptoms. Pt reports history of open heart surgery. Pt previously smoked and has quit sinceopen heart surgery. Pt is allergic to Penicillin and Morphine. History provided by: Patient and friend Shortness of Breath Severity: Mild Onset quality: Sudden Duration: 1 week Progression: Worsening Associated symptoms: wheezing Associated symptoms: no abdominal pain, no chest pain, no cough, no fever, no rash and no vomiting Problem List Items Addressed This Visit Respiratory * (Principal) Hypoxia - Primary Other Visit Diagnoses COPD exacerbation ([facility]) Relevant Medications ipratropium-albuteroL (DUONEB) 0.5 mg-3 mg(2.5 mg base)/3 mL nebulizer solution 3 mL (Completed) dexAMETHasone sodium phos (PF) (DECADRON) injection 10 mg ipratropium-albuteroL (DUONEB) 0.5 mg-3 mg(2.5 mg base)/3 mL nebulizer solution 3 mL Acute respiratory failure with hypoxia and hypercapnia ([facility]) Past Medical History: Diagnosis Date Agoraphobia Angina at rest Anxiety BiPAP (biphasic positive airway pressure) dependence Patient states she no longer uses a BIPAP 01/28/23 Bipolar disorder ([facility]) Breast injury CHF (congestive heart failure) ([facility]) Chipped tooth COPD (chronic obstructive pulmonary disease) ([facility]) Coronary artery disease Dementia ([facility]) Depression GERD (gastroesophageal reflux disease) History of coronary artery bypass graft 08/14/2020 Liver disease Low back pain Myocardial infarction ([facility]) Apr 2009, swith stent placement Obesity BOYN treated with BiPAP 07/31/2022 Osteoarthritis Panic disorder PTSD (post-traumatic stress disorder) Sleep apnea Visual impairment glasses Past Surgical History: Procedure Laterality Date BREAST BIOPSY BREAST CYST EXCISION Cardiac catheterization N/A 01/09/2020 Performed by Yefri Khan MD at [facility] Cardiac catheterization-LV Cors N/A 08/06/2020 Performed by Hazel Painting MD at [facility] SECTION CHOLECYSTECTOMY COLONOSCOPY N/A 04/03/2017 Performed by Jose Beaver MD at [facility] Coronary angiogram and left ventricular gram/pressure N/A 01/09/2020 Performed by Yefri Khan MD at [facility] CORONARY ANGIOPLASTY WITH STENT PLACEMENT CORONARY ARTERY BYPASS GRAFT X4/ THOMPSON/ SVG X3 / RIGHT UPPER LEG OPEN VEIN HARVEST/ LEFT UPPER LEG OPEN VEING HARVEST /GINETTE N/A 08/13/2020 Performed by Leroy Meng MD at [facility] Drug eluting stent left anterior descending N/A 01/09/2020 Performed by Yefri Khan MD at [facility] EXCISION SEROMA LOWER EXTREMITY Left 10/07/2022 Performed by Victor Hugo Vincent DO at [facility] Intravascular ultrasound coronary N/A 08/06/2020 Performed by Hazel Painting MD at [facility] Intravascular ultrasound coronary N/A 01/09/2020 Performed by Yefri Khan MD at [facility] NOTCHARGED/Thrombolysis arterial initial treatment N/A 01/09/2020 Performed by Yefri Khan MD at [facility] TONSILLECTOMY Travel Screening Question Response Have you been in contact with someone who was sick? No / Unsure Do you have any of the following new or worsening symptoms? None of these Have you traveled internationally or domestically in the last month? No Travel History Travel since 06/25/23 No documented travel since 06/25/23 Family History Problem Relation Age of Onset Hypertension Mother Depression Mother Heart failure Mother Alcohol abuse Father Cancer Maternal Grandmother Cervical cancer Maternal Grandmother Breast cancer Neg Hx Social History Substance and Sexual Activity Drug Use No Social History Tobacco Use Smoking status: Former Packs/day: 1.00 Years: 40.00 Additional pack years: 0.00 Total pack years: 40.00 Types: Cigarettes Quit date: 09/2021 Years since quittin.8 Smokeless tobacco: Former Types: Chew Tobacco comments: 5-6 cigerettes a day Vaping Use Vaping Use: Former Substance Use Topics Alcohol use: No Drug use: No Review of Systems Constitutional: Negative for chills and fever. HENT: Negative for nosebleeds and rhinorrhea. Eyes: Negative for discharge and redness. Respiratory: Positive for shortness of breath and wheezing. Negative for cough. Cardiovascular: Negative for chest pain/discomfort and leg swelling. Gastrointestinal: Negative for abdominal pain and vomiting. Genitourinary: Negative for dysuria and hematuria. Musculoskeletal: Negative for arthralgias and joint swelling. Skin: Negative for rash and wound. Neurological: Negative for syncope and facial asymmetry. Physical Exam ED Triage Vitals [07/25/23 1635] Temp Heart Rate Resp BP SpO2 36.5 C (97.7 F) 71 22 141/78 (!) 85 % Temp Source Heart Rate Source Patient Position BP Location FiO2 (%) Oral Pulse Ox -- -- -- Vitals: 07/25/23 1731 07/25/23 1802 07/25/23 1854 07/25/23 1904 BP: 121/71 Temp: 36.8 C (98.2 F) TempSrc: Axillary Pulse: 65 66 60 58 Resp: 16 16 20 SpO2: 95% 98% 98% 97% MAP (mmHg): 87 Height: Weight: Physical Exam Vitals and nursing note reviewed. Constitutional: Appearance: Normal appearance. HENT: Head: Normocephalic and atraumatic. Right Ear: External ear normal. Left Ear: External ear normal. Nose: Nose normal. Mouth/Throat: Mouth: Mucous membranes are moist. Eyes: Extraocular Movements: Extraocular movements intact. Pupils: Pupils are equal, round, and reactive to light. Cardiovascular: Rate and Rhythm: Normal rate and regular rhythm. Pulses: Normal pulses. Heart sounds: Normal heart sounds. Pulmonary: Effort: Pulmonary effort is normal. Tachypnea present. Breath sounds: Wheezing present. Comments: Hypoxic on room air Abdominal: General: Abdomen is flat. Bowel sounds are normal. Palpations: Abdomen is soft. Tenderness: There is no abdominal tenderness. Musculoskeletal: General: Normal range of motion. Cervical back: Normal range of motion and neck supple. Right lower le+ Pitting Edema present. Left lower le+ Pitting Edema present. Skin: General: Skin is warm and dry. Capillary Refill: Capillary refill takes less than 2 seconds. Neurological: General: No focal deficit present. Mental Status: She is alert. Procedure Critical Care Performed by: Mary Lock MD Authorized by: Mary Lock MD Critical care provider statement: Critical care time (minutes): 30 Critical care time was exclusive of: Separately billable procedures and treating other patients andteaching time Critical care was necessary to treat or prevent imminent or life-threatening deterioration of the following conditions: Respiratory failure Critical care was time spent personally by me on the following activities: Blood draw for specimens, development of treatment plan with patient or surrogate, evaluation of patient's response to treatment, interpretation of cardiac output measurements, obtaining history from patient or surrogate, review of old charts, re-evaluation of patient's condition, pulse oximetry, ordering and review of radiographic studies, ordering and review of laboratory studies, ordering and performing treatments andinterventions and examination of patient Re-Evaluation Re-Evaluation ED Course ED Course as of 07/25/231926 Sat Jul 25, 20231724 Chart reviewed. Yesterday's ER workup reviewed: Dimer negative Trop negative BNP negative Patient established with Dr. Meadows. She had recommended BIPAP. Patient does not use. [AV] 1729 Dr. Cardozo noted as PCP, will discuss admit with him. [AV] 1738 Dr. Carrion covering for Dr. Cardozo, he accepted admission kindly. [AV] 1738 Discussed with RT Vicki to place patient on BIPAP and need for VBG. BIPAP will help with patient's tachypnea and wheezing. [AV] [address] Carrion messaged regarding updates. Patient remains AAOx4 and GCS 15, speaking in full sentences at this time. There is no community leader available in the ED, so will workon getting a hold of tele- pulmonology myself. Patient is to go to ICU for further management and close monitoring. [AV] 1833 Dr. Carlos accepted consultation for BIPAP management. Case discussed. [AV] 1835 Dr. Carrion updated by phone call as well. [AV] 1839 Vicki RN informed that patient needs IV decadron. She states she will be administering it shortly. [AV] 192 Patient did not receive her IV steroids here. Floor nurse Lissette RN messaged to give steroids. [AV] ED Course User Index [AV] Mary Lock MD Clinical Impressions as of 07/25/231926 COPD exacerbation ([facility]) Acute respiratory failure with hypoxia and hypercapnia ([facility]) Hypoxia MDM Medical Decision [facility] documented for Dr. Lock. Chart Reviewed. Date: 07/24/23. Type of Note: ED. Notable for: Pneumonia right lower lobe Chief Complaint: Shortness of breath Differential Diagnosis includes but is not limited to: CAP with failure of treatment at home vs COPD exacerbation vs unlikely PE Plan of Care: Dr. Lock will order Blood gas venous, Troponin I, CBC, BMP, EKG, and XR chest. Will give Rocephin and Duoneb. 5:[address] Lock spoke with Dr. Gimenez who is covering for Dr. Cardozo accepted admission. 6:[address] Lock spoke with Dr. Carrion discussing plan of care for pt. Labs notable for: Creatinine 1.57, Glucose is 107, eGFR is 37, Hemoglobin is 11.3, RDW is 16.6, Neutrophils absolute is 6.7, PCO2 venous is 67.8, Portable HCO3 is 28.0, % O2 sat is 68.0 Imaging was independently viewed by Dr. Lock and is notable for no acute change. However, pending official radiologist read. Dr. Lock discussed lab and imaging results with pt and plan for admission. Pt is understanding andagreeable to plan. Pt does require admission at this time. Dr. Lock re-evaluated the patient after 30 minutes on BIPAP. She is taking in good tidal volumes. She is mentating normally. Amount and/or Complexity of Data Reviewed Labs: ordered. Radiology: ordered. ECG/medicine tests: ordered. Risk Prescription drug management. Decision regarding hospitalization. RESULTS Labs: Labs Reviewed CBC WITH AUTO DIFFERENTIAL - Abnormal; Notable for the following components: Result Value Hemoglobin 11.3 (*) RDW 16.6 (*) Neutrophils Absolute (A) 6.7 (*) All other components within normal limits BASIC METABOLIC PANEL - Abnormal; Notable for the following components: Creatinine 1.57 (*) Glucose 107 (*) eGFR (CKD-EPI)non-race dependent 37 (*) All other components within normal limits BLOOD GAS, VENOUS - Abnormal; Notable for the following components: pH, Venous 7.224 (*) PCO2, Venous 67.8 (*) Portable HCO3 28.0 (*) % O2 Sat 68.0 (*) All other components within normal limits SARS/FLU A+B/RSV BY NAAT/MOLECULAR (M4RT COLLECTION TUBE) BLOOD CULTURE BLOOD CULTURE TROPONIN I BLOOD GAS, VENOUS LACTATE W/ REFLEX Radiology: X-ray chest 2 views Result Date: 07/25/2023 Procedure: Chest x-ray performed Number of views:2 History:Shortness of breath Comparison:07/24/2023Findings: The heart and lungs show no acute findings, and the mediastinum and satnam are grossly negative . Impression: 1. No acute change. Finalized by Abdelrahman Patel MD on 07/25/2023 5:16 PM X-ray chest 1 view Result Date: 07/24/2023 XR CHEST 1 VW HISTORY: Cough, shortness of breath COMPARISON: 05/27/2023 FINDINGS: No pleural effusion or appreciable pneumothorax. Cardiomediastinal silhouette appears stable and nonenlarged. Focal airspace opacity over the peripheral right lower lobe, atelectasis versus pneumonia. Peripherally calc ified structure overlying the left lung base likely reflects left breast cyst seen on chest CT dated 04/14/2023. IMPRESSION: * Focal airspace opacification over the peripheral right lower lobe, atelectasis versus pneumonia. Approved by Resident: Ciaran Narvaez MD on 07/24/2023 9:58 PM I, Tritsen Neely MD have personally reviewed the image(s) and agree with and/or edited the report Finalized by Tristen Neely MD on 07/24/2023 10:05 PM NURSING NOTES AND VITALS REVIEWED The nursing notes within the ED encounter and vital signs as below have been reviewed. BP 121/71 Pulse 58 Temp 36.8 C (98.2 F) (Axillary) Resp 20 Ht 175.3 cm (5' 9.02 ) Wt 121.5 kg (267 lb 13.7 oz) SpO2 97% BMI 39.54 kg/m PROGRESS NOTES The plan of care has been discussed with patient including today s results, in addition to providing specific details regarding counseling pertaining to the diagnosis and prognosis. All questions were answered at this time and they are agreeable with the plan ADDITIONAL PROVIDER NOTES At this time the patient has objective evidence of an acute process requiring hospitalization or inpatient management. Medications dexAMETHasone sodium phos (PF) (DECADRON) injection 10 mg (has no administration in time range) ipratropium-albuteroL (DUONEB) 0.5 mg-3 mg(2.5 mg base)/3 mL nebulizer solution 3 mL (has no administration in time range) doxycycline (VIBRAMYCIN) capsule 100 mg (has no administration in time range) cefTRIAXone (ROCEPHIN) IVPB 1000 mg/50 mL in iso-osmotic dextrose (20 mg/mL premix) (0 mg intravenous Stop Bag 07/25/23 1832) ipratropium-albuteroL (DUONEB) 0.5 mg-3 mg(2.5 mg base)/3 mL nebulizer solution 3 mL (3 mL nebulization Given 07/25/23 1731) Medication List None Diagnosis: 1. Hypoxia 2. COPD exacerbation ([facility]) 3. Acute respiratory failure with hypoxia and hypercapnia ([facility]) Disposition: Patient's disposition: Admit Patient's condition is stable. Critical Care time: 30 minutes Provider Statement By electronically signing this emergency patient record, the Emergency Physician/TOP FLAVOR ATTENDANT/PA-C attests that all entries made into the electronic medical record by arianna John prior to the Physician/TOP FLAVOR ATTENDANT/PA-C signature reflect an accurate accounting of the evaluation and care rendered by that Emergency Physician/TOP FLAVOR ATTENDANT/PA-C. The Emergency Physician/TOP FLAVOR ATTENDANT/PA-C assumes full responsibility for those entries. The Emergency Physician/TOP FLAVOR ATTENDANT/PA-C also attests that any patient testing or treatment that was instituted by nursing staff in accordance to Emergency Department Preemptive Guidelines have been reviewed and unless so stated elsewhere in this patient chart, the Physician/TOP FLAVOR ATTENDANT/PACarolinaC agrees with the testing and care provided. No Additional Attestations Heena Tran 07/25/23 1728 Heena Tran 07/25/23 1811 Heena Tran 07/25/23 1812 Heena Tran 07/25/23 1812 Heena Tran 07/25/23 1824 Mary Lock MD 07/25/23 1829 Heena Tran 07/25/23 1837 Heena Tran 07/25/23 1905 Mary Lock MD 07/25/23 1923 Mary Lock MD 07/25/237 * Jade Alvarez RN - 07/25/2023 4:31 PM EDT Patient presents with complaints of difficulty breathing x's 1 week. Patient states she was seen inthe ER yesterday and diagnosed with Right Lower Lobe pneumonia. SpO2 on room air 85% [facility] Triage note* Jade Alvarez RN - 07/25/2023 4:31 PM EDT Patient presents with complaints of difficulty breathing x's 1 week. Patient states she was seen inthe ER yesterday and diagnosed with Right Lower Lobe pneumonia. SpO2 on room air 85% [facility] History of Present illness Narrative* Rajni Cardozo DO - 07/01/2023 2:15 PM EST IM PROGRESS NOTE Patient - Monet Recinos Age - 63 y[facility] 1960 [id number] ASSESSMENT & PLAN 1. Fibromyalgia syndrome -ongoing problem with fair control at the current time, but on multiple, redundant, contraindicatedand sometimes ineffective medications. -has CKD 3A, and currently taking NSAID (Arthrotec). I advised patient to stop the Arthrotec orally. -we will replace this with diclofenac gel 1% to apply q.i.d. as needed to painful areas -continue to wean off of amitriptyline. Decrease dose to 25 mg nightly x7 days, then discontinue. -advised patient that once we can wean off redundant and contraindicated medications, we can consider adjusting the gabapentin dosing. Alternatively, might do better with pregabalin. -still with weakness, and she is fairly inactive. Will order home health to obtain home PT to work on strengthening. 2. Stage 3a chronic kidney disease ([facility]) -recent GFR 45 -again is on multiple medications which have negative effects on the kidneys including pantoprazole, gabapentin, diclofenac oral, and high doses of torsemide. -torsemide dose has been decreased to 80 mg daily. -advised the patient to decrease pantoprazole to 40 mg once daily, and if able we will try to wean this off entirely -oral diclofenac stopped as above. -encourage patient to maintain fluid intake of around 64 oz daily -most recent hemoglobin is normal. May discontinue oral iron 3. BONY treated with BiPAP -currently untreated -a split night study was ordered through Pulmonary. I encouraged the patient to keep this appointment. -treating sleep apnea should help her heart failure as well as her fibromyalgia 4. Chronic heart failure with preserved ejection fraction ([facility]) -GDMT currently includes beta-georgi, SGLT 2 agent, loop diuretic, RAAS inhibitor. If we can improve renal function, may be able to restart ARB. -continue to monitor 5. Obesity (BMI 30-39.9) -we discussed weight loss and overall context of helping her other health problems. -she is willing to start exercise program through therapy, although realizes this will take a long time. My overall goal is to start shortening her medication list which is excessively long. Will need to coordinate this with Psychiatry, as she is on multiple medications which are negatively affecting her metabolic and cardiac status. Subjective 63-year-old female presents for recheck visit to review laboratory work, discuss current medicationregimen, and establish a plan for her long-term control of her health. At last visit, we did start tapering her amitriptyline dose because of redundancy and medications. -she reports no problems or issues with decreasing the amitriptyline. -she continues to report generalized pain in her back, shoulders, hips and lateral legs. She does feel she gets relief when using gabapentin for this , and to a lesser extent Flexeril. Also taking diclofenac orally. She has not fallen, but does feel that her balance is poor, and that her legs feel weak. She does not think she could walk up 1-2 steps right now. - she does continued to have poor sleep, but did see Pulmonary Medicine, and a repeat split night sleep study was ordered in order to reestablish treatment for her sleep apnea. - She is going to heart failure Clinic. They did decrease her torsemide dose. She continues on spironolactone, Jardiance, and propanolol. -she reports the propanolol was actually started a year ago because of tremor. The tremor at that time, was felt to be secondary to her lithium, which has subsequently been stopped. A review of systems was negative except for the following: General: fatigue and sleep disturbance Psychiatric: concentration difficulties and memory difficulties Musculoskeletal: gait disturbance, joint stiffness, muscular weakness, and pain in back - bilateral, lower, upper, shoulder - bilateral, upper, and thigh - bilateral, along iliotibial band Neurological: gait disturbance and weakness. Exam BP 122/60 (BP Site: Left Arm, BP Postition: Sitting) Pulse 70 Temp 36.7 C (98.1 F) (Oral) Ht 175.3 cm (5' 9 ) Wt 118 kg (260 lb 3.2 oz) SpO2 96% BMI 38.42 kg/m Physical Exam Vitals reviewed. Exam conducted with a senior research project manager present (Friend/POA). Constitutional: General: She is not in acute distress. Appearance: She is well-developed. She is obese. She is not toxic-appearing. HENT: Head: Normocephalic. Right Ear: External ear normal. Left Ear: External ear normal. Nose: Nose normal. Mouth/Throat: Mouth: Mucous membranes are moist. Eyes: General: No scleral icterus. Neck: Vascular: No carotid bruit. Cardiovascular: Rate and Rhythm: Normal rate. Pulses: Normal pulses. Heart sounds: Normal heart sounds. No murmur heard. No gallop. Comments: Heart tones distant Pulmonary: Effort: Pulmonary effort is normal. Breath sounds: No wheezing or rales. Abdominal: Palpations: Abdomen is soft. Musculoskeletal: General: Tenderness (Tender points noted along the upper border of the trapezius muscle bilaterally. Also along the medial border of the scapula, and along the iliotibial band bilaterally.) present. Cervical back: Neck supple. Right lower leg: Edema (Trace) present. Left lower leg: Edema (Trace) present. Lymphadenopathy: Cervical: No cervical adenopathy. Skin: General: Skin is warm and dry. Coloration: Skin is not jaundiced. Findings: No bruising. Neurological: Mental Status: She is alert and oriented to person, place, and time. Sensory: No sensory deficit (Intact vibratory sensation bilateral feet and ankles). Motor: Weakness (Hip flexors: 4/5 bilateral. Knee extensor: 3/5 bilateral. Knee flexor: 4/5 bilateral. Ankle dorsiflexion: 4/5 bilateral.) present. Gait: Gait abnormal (Using a rolling walker. Able to climb onto exam table). Deep Tendon Reflexes: Reflexes are normal and symmetric. Psychiatric: Mood and Affect: Mood normal. Behavior: Behavior normal. Meds Current Outpatient Medications: albuterol (ACCUNEB) 0.63 mg/3 mL nebulizer solution, Inhale 3 mL (0.63 mg total) by nebulization every 6 (six) hours as needed for wheezing., Disp: , Rfl: albuterol (PROVENTIL HFA;VENTOLIN HFA) 90 mcg/actuation inhaler, INHALE 2 PUFF BY MOUTH AND INTO THE LUNGS EVERY 4-6 HOURS NEEDED FOR BREATHING ISSUES FOR 17 DAYS for 17, Disp: , Rfl: ARIPiprazole (ABILIFY) 15 mg tablet, TAKE 1 TABLET BY MOUTH EVERYDAY AT BEDTIME, Disp: , Rfl: aspirin 81 mg, Take 1 tablet (81 mg total) by mouth in the morning., Disp: , Rfl: atorvastatin (LIPITOR) 80 mg tablet, TAKE 1 TABLET (80 MG TOTAL) BY MOUTH IN THE MORNING, Disp: 90 tablet, Rfl: 3 gauklxbgus-oeqzmpzz-mkulrrawmi (BREZTRI AEROSPHERE) 160-9-4.8 mcg/actuation HFA aerosol inhaler, Inhale 2 puffs in the morning and 2 puffs before bedtime., Disp: 10.7 g, Rfl: 10 cholecalciferol, vitamin D3, 5,000 units tablet, Take 2 tablets (10,000 Units total) by mouth in the morning., Disp: , Rfl: clonazePAM (KlonoPIN) 0.25 mg disintegrating tablet, Dissolve 1 tablet (0.25 mg total) on tongue 2 (two) times a day as needed., Disp: , Rfl: cyclobenzaprine (FEXMID) 7.5 MG tablet, Take 1 tablet (7.5 mg total) by mouth 2 (two) times a day as needed for muscle spasms., Disp: , Rfl: diphenhydrAMINE (BENADRYL) 50 mg capsule, Take 1 capsule (50 mg total) by mouth every 6 (six) hoursas needed for itching., Disp: , Rfl: doxepin (SINEquan) 75 mg capsule, 1 capsule at bedtime Orally Once a day, Disp: , Rfl: empagliflozin (JARDIANCE) 10 mg tablet tablet, Take 1 tablet (10 mg total) by mouth in the morning., Disp: 30 tablet, Rfl: 11 gabapentin (NEURONTIN) 100 mg capsule, Take 2 capsules (200 mg total) by mouth 3 (three) times a day., Disp: , Rfl: lamoTRIgine (LaMICtal) 100 mg tablet, TAKE 1 TABLET BY MOUTH EVERY DAY IN THE MORNING, Disp: , Rfl: ondansetron (ZOFRAN) 4 mg tablet, Take 1 tablet (4 mg total) by mouth every 8 (eight) hours as needed for nausea or vomiting., Disp: , Rfl: potassium chloride (KLOR-CON M 20) 20 MEQ CR tablet, Take 1 tablet (20 mEq total) by mouth in the morning., Disp: , Rfl: propranolol LA (INDERAL LA) 80 mg 24 hr capsule, Take 1 capsule (80 mg total) by mouth in the morning., Disp: , Rfl: spironolactone (ALDACTONE) 25 mg tablet, Take 1 tablet (25 mg total) by mouth in the morning., Disp: 30 tablet, Rfl: 11 SUMAtriptan (IMITREX) 25 mg tablet, Take by mouth as needed., Disp: , Rfl: SUMAtriptan (IMITREX) 50 mg tablet, TAKE 1 TABLET BY MOUTH DIRECTED, Disp: , Rfl: topiramate (TOPAMAX) 50 mg tablet, TAKE 1 TABLET BY MOUTH TWICE A DAY FOR 30 DAYS, Disp: , Rfl: torsemide (DEMADEX) 20 mg tablet, Take 4 tablets (80 mg total) by mouth daily. TAKE 4 TABLETS BY MOUTH IN THE MORNING AND 2 TABS IN THE EVENING PRN, Disp: 540 tablet, Rfl: 1 venlafaxine XR (EFFEXOR XR) 75 mg 24 hr capsule, TAKE 1 CAPSULE BY MOUTH EVERY DAY IN THE MORNING, Disp: , Rfl: venlafaxine XR (EFFEXOR-XR) 150 mg 24 hr capsule, Take 225 mg by mouth in the morning., Disp: , Rfl: pantoprazole (PROTONIX) 40 mg EC tablet, Take 1 tablet (40 mg total) by mouth every morning before breakfast., Disp: , Rfl: No current facility-administered medications for this visit. Lab Results No visits with results within 1 Month(s) from this visit. Latest known visit with results is: Hospital Outpatient Visit on 06/01/2023 Component Date Value Ref Range Status Sodium 06/01/2023 142 134 - 146 mmol/L Final Potassium, Bld 06/01/2023 4.0 3.5 - 5.0 mmol/L Final Chloride 06/01/2023 102 98 - 109 mmol/L Final CO2 06/01/2023 32 22 - 32 mmol/L Final Anion gap 06/01/2023 8 5 - 15 mmol/L Final BUN 06/01/2023 15 5 - 27 mg/dL Final Creatinine 06/01/2023 1.27 (H) 0.40 - 1.00 mg/dL Final Glucose 06/01/2023 87 65 - 99 mg/dL Final Calcium 06/01/2023 9.5 8.5 - 10.5 mg/dL Final eGFR (CKD-EPI)non-race dependent 06/01/2023 48 (L) >59 ml/min/1.73sq.m Final White Blood Cells 06/01/2023 10.5 4.0 - 11.0 X10E9/L Final RBC count 06/01/2023 3.92 3.80 - 5.20 X10E12/L Final Hemoglobin 06/01/2023 11.5 (L) 11.7 - 15.5 g/dL Final Hematocrit 06/01/2023 35.7 35 - 47 % Final MCV 06/01/2023 91 80 - 100 fL Final MCH 06/01/2023 29.3 27 - 34 pg Final MCHC 06/01/2023 32.2 32 - 36 g/dL Final RDW 06/01/2023 19.3 (H) 11.5 - 15.0 % Final Platelets 06/01/2023 321 150 - 450 X10E9/L Final MPV 06/01/2023 8.9 7 - 12 fL Final % neutrophils 06/01/2023 77.8 % Final % lymphocytes 06/01/2023 14.5 % Final % monocytes 06/01/2023 5.8 % Final % eosinophils 06/01/2023 1.3 % Final % Basophils 06/01/2023 0.6 % Final Neutrophils Absolute (A) 06/01/2023 8.1 (H) 1.5 - 6.6 X10E9/L Final Lymphocytes Absolute 06/01/2023 1.5 1.0 - 3.5 X10E9/L Final Monocytes Absolute 06/01/2023 0.6 0 - 0.9 X10E9/L Final Eosinophils Absolute 06/01/2023 0.1 0.0 - 0.4 X10E9/L Final Basophils Absolute 06/01/2023 0.1 0.0 - 0.2 X10E9/L Final TSH 06/01/2023 0.80 0.49 - 4.67 uIU/mL Final Other Testing X-ray chest 1 view Result Date: 05/27/2023 Portable chest: HISTORY: Hypotension. Single view of the chest was obtained and compared to prior examination 04/28/2023. Cardiac silhouette is unchanged. Is no pneumothorax. No focal consolidation or obvious effusion. IMPRESSION: No significant change. Finalized by Dalton Zambrano MD on 05/27/2023 8:53 PM X-ray chest 1 view Result Date: 04/28/2023 Clinical History: Pneumonia. Portable Upright chest: 04/28/2023 Comparison: 04/23/2023 Findings: A single portable view of the chest was obtained. There is strandy density in the lower lungs with interval improvement. No pneumothorax or definite pleural effusion is a. Mediastinal contours are stable IMPRESSION: Basilar opacities compatible with atelectasis. Finalized by MD Sera on 04/28/2023 9:57 AM X-ray chest 1 view Result Date: 04/23/2023 Single view chest History: Difficulty breathing, shortness of breath Comparison: 04/22/2023 Impression: 1. Unchanged endotracheal tube, gastric drainage tube, sternotomy, left IJ catheter [terminating near the upper SVC]. 2. Unchanged central pulmonary vascular congestion without overt pulmonary edema. Confluent opacity right basilar region, favor atelectasis. No new or growing airspace opacity. No pneumothorax or pleural effusion. 3. Borderline cardiomegaly Finalized by Alli Bateman MD on 04/23/2023 6:11 AM X-ray chest 1 view Result Date: 04/22/2023 Single view chest History: Difficulty breathing, shortness of breath. Comparison: 04/21/2023 Findings: ET tube tip approximately 4 cm above the miki. Enteric tube tip over the stomach. Looped configuration left IJ catheter, correlate with function, tip over the proximal SVC. Stable cardiomediastinal silhouette. Median sternotomy. Patchy/nodular opacity over the right midlung zone laterally. Perihilar and bibasilar atelectasis, suspect trace effusions. No pneumothorax. Impression: 1. Persistent linear/patchy perihilar and bibasilar airspace opacities; correlate with any ongoing edema, atelectasis, and/or pneumonia. 2. Support devices as above Finalized by Vcitor Hugo Gustafson MD on 04/22/2023 6:14 AM X-ray chest 1 view Result Date: 04/21/2023 Single view chest History:resp failure Difficulty breathing, shortness of breath Comparison: 04/20/2023 Findings: Single portable view of the chest. Degenerative and enteric catheter. Diminished penetration relative to body habitus and portable technique. Stable bilateral lower lung atelectasis. Noobvious pneumothorax. Impression: Stable tubes and lines. Stable appearance of the chest. Finalized by Victor Hugo Kim MD on 04/21/2023 5:51 AM X-ray chest 1 view Result Date: 04/20/2023 Clinical history: Acute respiratory failure. Comparisons: 04/16/2023 through 04/19/2023. Findings: Portable upright chest radiograph obtained 5:08 AM. Heart size and pulmonary vasculature appear within normal limits. There is hypoventilation with low lung volumes. Right basilar atelectasis persists. Nasogastric tube terminates within stomach. Endotracheal tube is in satisfactory position terminating 4.3 cm above level the miki. Left IJ central venous catheter tip again terminates in superior vena cava. It is looped likely at or near the venotomy site similar to prior exam. Changes of prior cardiac surgery again seen. There is no pneumothorax. IMPRESSION: Stable appearance of the chest as above. Finalized by Tristen Neely MD on 04/20/2023 5:33 AM X-ray chest 1 view Result Date: 04/19/2023 CLINICAL INFORMATION: Dyspnea. TECHNIQUE: Chest, 1 view. COMPARISON: one day prior. FINDINGS Endotracheal tube terminates 4.5 cm above the miki. Enteric tube projects below the diaphragm. Left neckcatheter terminates in superior SVC. Bibasilar pulmonary opacifications not significantly changed. IMPRESSION: * No significant interval change. Approved by Resident Elkin Warren MD on 04/19/2023 5:38 AM I, Victor Hugo Kim MD have personally reviewed the image(s) and agree with and/or edited the report Finalized by Victor Hugo Kim MD on 04/19/2023 5:41 AM X-ray chest 1 view Result Date: 04/18/2023 Single view chest History: Difficulty breathing, shortness of breath. Covid positive. Comparison: 04/17/2023 Findings: Similar loop configuration left IJ catheter. Similar ET tube. Partially imaged enteric tube. Median sternotomy. Stable enlarged cardiac silhouette. Bandlike opacity right lower lobe, likely atelectatic. Small effusions. No measurable pneumothorax. Right costophrenic angle excluded from [id number]. Impression: 1. Persistent effusions, with or without underlying pneumonia. 2. Looped configuration left IJ catheter and correlate with function. Finalized byVictor Hugo Gustafson MD on 04/18/2023 5:44 AM X-ray chest 1 view Result Date: 04/17/2023 CHEST 1 VIEW HISTORY: Acute respiratory failure COMPARISON: 04/16/2023 FINDINGS: Stable lines and tubes. Mild pulmonary vascular congestion/edema. Bibasilar opacities may represent atelectasis or pneumonia, improved. No pleural effusions or pneumothorax. IMPRESSION: * Improved bibasilar opacities. No other significant change. Finalized by Dharmesh Graves MD on 04/17/2023 5:44 AM X-ray chest 1 view Result Date: 04/16/2023 HISTORY: Acute respiratory failure COMPARISON: Chest x-ray 04/15/2023 FINDINGS: Portable AP uprightview of the chest was performed. Stable position of endotracheal tube, enteric tube and left jugular venous catheter. Cardiac silhouette is unchanged. Stable bilateral airspace disease with superimposed pulmonary edema. No significant pleural effusion or pneumothorax. IMPRESSION: * No significant interval change. Finalized by Francisco Javier Aceves MD on 04/16/2023 5:28 AM X-ray chest 1 view Result Date: 04/15/2023 HISTORY: Pneumonia, COVID positive COMPARISON: Chest x-ray 04/14/2023 FINDINGS: Portable AP uprightview of the chest was performed. Stable position of endotracheal tube, enteric tube and left jugular venous catheter. Postoperative changes compatible with CABG. Stable bilateral airspace disease. Nosignificant pleural effusion or pneumothorax. IMPRESSION: * No significant interval change. Finalized by Francisco Javier Aceves MD on 04/15/2023 5:56 AM X-ray chest 1 view Result Date: 04/14/2023 Portable chest: HISTORY: Line placement. Single view of the chest was obtained. Endotracheal tube remains in satisfactory position. Left central line tip is the region of the SVC. No pneumothorax appreciated. There is right lower lobe infiltrate or atelectasis. Pulmonary vasculature is congested. IMPRESSION: Satisfactory line and tube position. Vascular congestion and right lower lobe infiltrate or atelectasis. Finalized by Dalton Zambrano MD on 04/14/2023 4:16 PM X-ray chest 1 view Result Date: 04/14/2023 History: Intubation Exam/Technique: Portable upright AP chest Comparison: Previous view from approximately 2 1/2 hours earlier Findings: Patient is now intubated with the tip the endotracheal tube approximately 2.5 cm above the miki. Focal atelectasis or infiltrate at the right lung base appears u nchanged. Enlargement of the cardiopericardial silhouette appears grossly unchanged with magnification on this AP view. Changes from sternotomy redemonstrated IMPRESSION: Endotracheal tube appears ingood position. Areas of atelectasis or infiltrate at the right lung base unchanged. Finalized by Douglas Dozier MD on 04/14/2023 3:16 PM X-ray chest 1 view Result Date: 04/14/2023 Chest radiograph dated: 04/14/2023. Reason for study: shortness of breath. Comparison studies: Chest radiograph from 04/13/2023. Technique: Portable upright chest 1 view AP. Findings: Similar-appearing mildly prominent cardiomediastinal silhouette. Interval increase/more prominent appearing right mid to lower lung zone airspace opacities. No pneumothorax. No significant pleural effusions. No overt pulmonary edema. Similar-appearing midline sternotomy wires. IMPRESSION: Interval increase/more prominent appearing right mid to lower lung zone airspace opacities. Finalized byDavid Osorio MD on 04/14/2023 12:50 PM X-ray chest 1 view Result Date: 04/13/2023 Procedure: Chest x-ray performed Number of views:AP portable History:Weakness Comparison:04/29/2022 Findings: The heart and mediastinal silhouette are stable. There is right middle and lower lobe opacity consistent with pneumonia. There are no sizable effusions. The pulmonary vasculature is average. There is no pneumothorax Impression: Right pneumonia. Follow-up to resolution recommended Finalized by Luma Aceves DO on 04/13/2023 1:48 PM Rajni Cardozo DO., [facility] Physicians Office: [phone] documented in this encounterUniversity Hospitals [facility]02-29-2024 Miscellaneous Notes* Telephone Encounter - Heena Mendoza - 06/25/2023 2:20 PM EST Order received Scheduled SN at [facility] on 08/11/23 Confirmation emailed [facility] Medicare Dual Complete Medicaid [place] SN Order and 06/25/23 Stephanie Wilson Notes Quick transition to BIPAP- WITH TCO2 monitoring documented in this encounterThe Surgical Hospital at SouthwoodsJumpStart [facility]02-29-2024 Telephone encounter Note* Telephone Encounter - Heena Mendoza - 06/25/2023 2:20 PM EST Order received Scheduled SN at [facility] on 08/11/23 Confirmation emailed [employer] Medicare Dual Complete Medicaid [place] SN Order and 06/25/23 Stephanie Meadows Epic Notes Quick transition to BIPAP- WITH TCO2 monitoring [facility] History of Present illness Narrative* Grace Meadows, DO - 06/25/2023 10:00 AM EST Images from the original note were not included. [facility] Patient - Monet Recinos Age - 63 y.o. - 1960 ASSESSMENT 1. Combined obstructive and restrictive lung disease 2. Pulmonary Lingular Nodule 11mm 3. Tobacco use, quit 1 year ago 4. CHF with chronic LE edema 5. Moderate BONY (AHI 16.5) with BIPAP ordered. 6. Obesity with BMI 39 7. History of COVID infection with mechanical ventilation, Mar [address] scan of the chest to follow-up on pulmonary nodule is expected after August 18. Order isalready in place and patient was reminded of this. Congratulated on tobacco cessation Will proceed with split night sleep study with TCO2 monitoring. Quick transition to BIPAP given previous BIPAP needs. Refill of breztri sent. Continue nebulizer machine as needed. Has history of oral sores from albuterol HFA and discussed using nebulizer instead if needed. Reviewed records from hospital stay. Blood gases do not suggest daytime hypercapnia Will repeat PFT data. RTC in 4-6 months. SUBJECTIVE Ms. Recinos presents for follow up of her obstructive/restrictive lung disease, pulmonary nodule, tobacco use, moderate BONY advised for BiPAP. She was last seen in the office in October 2022. She would declined sleep medicine evaluation, disc kind care for obstructive sleep apnea. She was not ready to quit tobacco. She had been offered home nebulizer machine with aerosol solution but also refused. She was admitted to [facility] ICU and seen by Pulmonary there. She was confused and roommate had called EMS. O2 sat was 70%. She ended up intubated and on life support during that admission. She had COVID infection was determined. She was also treated for Klebsiella pneumonia. She was intubated for total of 7 days. She was advised to continue BiPAP with naps and all sleep. She is interested in pursuing this today. Does not have device at home. She is snoring and wakes up tired. Never feels refreshed. She dozes off during the day VITALS BP 110/75 Pulse 75 Ht 175.3 cm (5' 9 ) Wt 113.9 kg (251 lb 1.6 oz) SpO2 96% BMI 37.08 kg/m Exam General: Alert, oriented, no acute distress, nontoxic, well nourished HEENT: Moist mucosal membranes, no oral lesions or oral thrush, trachea midline, thick neck, mallampati IV Chest: Clear to auscultation bilaterally without any crackles, wheezes, rhonchi. Normal AP diameter. CV: Regular rate regular rhythm Extremities: No erythema, distal cyanosis, clubbing Integumentary: Warm and dry. No rash or lesion Neuro: No lateralizing deficits. No tremors Meds Medications Reviewed. Lab Results PFT Results Radiology CTA CHEST MARCH 2023 Comparison: CT the chest from 08/13/2022 . Technique: After the injection of intravenous nonionic iodinated contrast, thin arterial axial CT of the chest was performed from the lung apices to the hemidiaphragms. 2-D reformats were obtained. Advanced 3D post processing was performed at an independent work station to further evaluate the suspected abnormality of the vasculature All CT scans at this facility use dose modulation, iterative reconstruction, and/or weight based dosing when appropriate to reduce radiation dose to as low asreasonably achievable. Findings: The main pulmonary artery is mildly enlarged measuring up to 3 cm. Evaluation is limited due to patient's habitus and motion artifact. No lymphadenopathy is noted in the thorax. Suboptimal bolus is noted limiting evaluation of the peripheral pulmonary arteries however within these limits no suspicious central filling defects. Heart appears prominent in size however there is no pericardialeffusion. Advanced atheromatous calcifications the coronary arteries. No thoracic aortic aneurysm. 1.8 cm benign-appearing rim calcified nodules noted within the subcutaneous tissues of the lower left thoracic wall anteriorly. The central airways are patent. Bilateral nodular airspace opacities and consolidative airspace opacities are noted more pronounced in the right hemithorax. Consolidative airspace opacities of the right middle lobe with air bronchograms. Consolidative airspace opacities at the right lung base. Nodular airspace opacities in a peribronchovascular distribution most pronounced in right upper lobe. Lingular airspace opacity scant groundglass nodular airspace opacities in the left upper lobe (axial lung image 56 7) and left lower lobe (axial lung image 46). No pneumothorax or significant pleural effusions. Small to moderate hiatal hernia is noted. 30% compression deformity of the T9 vertebral body with foci of gas noted anteriorly and within the T8-9 interval vertebral disc space. The posterior cortex appears intact. Impression: 1. Although limited in evaluation due to suboptimal bolus and technique as above there is no suspicious central pulmonary embolism. 2. Bilateral nodular and consolidated airspace opacities more pronounced on the right concerning for multifocal pneumonia in the appropriate clinical setting. Recommend follow-up CT the chest after clinical resolution. 3. Interval approximately 30% vertebral compression deformity of the T9 vertebral body. Recommend correlation with pain and subsequent possible MRI of the thoracic spine to assess for acuity. Dr. Grace Meadows DO. [facility] Physicians Pulmonary & Critical Care Office: [phone] documented in this encounterProUniversity Hospitals [facility]hu[facility]02-29-2024 Miscellaneous Notes* Telephone Encounter - Bipin Allen - 06/25/2023 9:54 AM EST Pt called in to inform that her battery but she is getting it jumped now, she stated that she will still make it to her 10am appt today w/SE Pls advise pt documented in this encounterProMedica Health [id number] Telephone encounter Note* Telephone Encounter - Bipin Allen - 06/25/2023 9:54 AM EST Pt called in to inform that her battery but she is getting it jumped now, she stated that she will still make it to her 10am appt today w/SE Pls advise pt [facility] [employer] [id number] History of Present illness Narrative* Rajni Cardozo, DO - 06/01/2023 1:30 PM EST Subjective Patient ID: Monet Recinos is a 63 y.o. female. The patient is here today for discharge followup from hospital. Transition of Care Med Rec completed? Yes Discharged medications: Medications have been reviewed and reconciled with the most recent facilitydischarge document. New Patient Associated symptoms include arthralgias, fatigue and weakness. Pertinent negatives include no abdominal pain, chest pain, chills, congestion, coughing, diaphoresis, fever, headaches, numbness or rash. The following portions of the patient's history were reviewed and updated as appropriate: current medications, past medical history, past social history, past surgical history, problem list, and medication reconciliation was completed including current medication and post discharge medication. 63-year-old female presents for new patient visit. Has an extensive, significant lung, heart, and psychiatric history. Most recently had prolonged hospitalization at [facility] due to severe pneumonia, and was on a ventilator for 3 weeks. Went to rehab for several weeks. Discharged home, and ended up in the hospital several days last week because of acute kidney injury from over-diuresis. Her medications were adjusted at that time. She reports ongoing weakness, shortness of breath with most activities, and difficulty with her sleeping. She says she was really helped by BiPAP while in [place], but reports she had previously been prescribed a CPAP machine, never used it and returned thedevice last year at some time. Her biggest concern today is the number of medication she is taking.These have been prescribed by various providers from different specialties. Review of Systems Constitutional: Positive for activity change and fatigue. Negative for appetite change, chills, diaphoresis, fever and unexpected weight change. HENT: Positive for dental problem. Negative for congestion. Eyes: Negative for visual disturbance. Respiratory: Positive for apnea. Negative for cough, choking, chest tightness, shortness of breath,wheezing and stridor. Cardiovascular: Positive for leg swelling. Negative for chest pain and palpitations. Gastrointestinal: Negative for abdominal distention and abdominal pain. Endocrine: Negative for cold intolerance and heat intolerance. Genitourinary: Positive for frequency. Negative for difficulty urinating. Musculoskeletal: Positive for arthralgias, back pain and gait problem. Uses a rolling walker Skin: Negative for color change, pallor, rash and wound. Neurological: Positive for weakness. Negative for dizziness, tremors, seizures, syncope, speech difficulty, light-headedness, numbness and headaches. Hematological: Negative for adenopathy. Does not bruise/bleed easily. Psychiatric/Behavioral: Positive for decreased concentration. Negative for agitation, behavioral problems and dysphoric mood. The patient is not nervous/anxious. Objective Physical Exam Vitals reviewed. Exam conducted with a senior research project manager present (Friend/POA). Constitutional: General: She is not in acute distress. Appearance: She is well-developed. She is obese. She is not toxic-appearing. HENT: Head: Normocephalic. Right Ear: Ear canal and external ear normal. Left Ear: Ear canal and external ear normal. Nose: Nose normal. Mouth/Throat: Mouth: Mucous membranes are dry. Eyes: General: No scleral icterus. Neck: Vascular: No carotid bruit. Cardiovascular: Rate and Rhythm: Normal rate. Pulses: Normal pulses. Heart sounds: Normal heart sounds. No murmur heard. No gallop. Comments: Heart tones distant Pulmonary: Effort: Pulmonary effort is normal. Breath sounds: No wheezing or rales. Abdominal: Palpations: Abdomen is soft. Musculoskeletal: Cervical back: Neck supple. Right lower leg: Edema (Trace) present. Left lower leg: Edema (Trace) present. Lymphadenopathy: Cervical: No cervical adenopathy. Skin: General: Skin is warm and dry. Coloration: Skin is pale. Skin is not jaundiced. Findings: No bruising. Neurological: Mental Status: She is alert and oriented to person, place, and time. Gait: Gait abnormal (Using a rolling walker. Was unable to climb onto exam table using the step.). Deep Tendon Reflexes: Reflexes are normal and symmetric. Psychiatric: Mood and Affect: Mood normal. Behavior: Behavior normal. Assessment/Plan Monet was seen today for new patient. Diagnoses and all orders for this visit: Chronic heart failure with preserved ejection fraction ([facility]) - Basic Metabolic Panel; Future - CBC auto differential; Future - TSH with Reflex; Future - reviewed the notes from the recent admission to the. -medication had been changed. Repeat lab as above, and adjust medications as needed to maintain heart failure control without dehydration and kidney injury. Bipolar disorder in partial remission, most recent episode unspecified type ([facility]) -patient with longstanding mental health issues including bipolar, substance abuse brothers. -she is on multiple medications for mental health issues, some of which seem to be redundant and with potential interactions and exacerbation of side effects -will start the process of trying to sort out what is really needed and what is redundant. Will start with decreasing her amitriptyline to 50 mg nightly and eventually wean off. -patient advised this will be a slow process to wean off all these medications. Atherosclerotic heart disease of [place] coronary artery with other forms of angina pectoris ([facility]) -previous CABG -currently aspirin 81 mg daily, atorvastatin and beta-georgi in the form of propanolol [place] -no changes in current regimen BMI 40.0-44.9, adult ([facility]) .- Patient extremely overweight -reviewed need to decrease weight in order to help her other medical problems. Some of this will involve weaning her down of her psych meds due to their negative metabolic effects. BONY treated with BiPAP -previously diagnosed and treated with a CPAP, the patient did not comply and returned the device -however, while in the hospital did note a benefit to using PAP therapy. -may need to need to sleep study in order to get a device. Need to check with her DME supplier and previous sleep lab Other orders - amitriptyline (ELAVIL) 100 mg tablet; Take 0.5 tablets (50 mg total) by mouth nightly. -start weaning process of medications as above documented in this encounterThe Surgical Hospital at SouthwoodsTheStreet Insight Surgical [id number] Miscellaneous Notes* Telephone Encounter - GLORIA Scott - 05/18/2023 12:35 PM EST Patient called and stated that she was recently discharged from [facility] on 05/15/2023.Patient stated that she was in the hospital from 04/13/2023 - 04/29/2023, which [facility] due to being on a ventilator. Patient stated that she has been experiencing dark brown sputum and her SpO2 has been 90%-92. Patient states that she switched PCPs and is not able to see her new PCP until 06/01/2023. Her symptoms are: Cough - slight cough, dark brown sputum Wheezing - none SOB - on exertion Denies fevers, body aches, chills and sick contacts Nebulizer: Albuterol (using as prescribed) Inhaler(s): Albuterol (PRN, patient stated she has only used a couple of times) Allergies: Penicillins and Morphine Pharmacy: [facility] Patient last seen on 11/06/2022 for: 1. Combined obstructive and restrictive pattern on PFT 2. Pulmonary Lingular Nodule 11mm 3. Tobacco use 4. CHF with chronic LE edema 5. Moderate BONY (AHI 16.5) with BIPAP ordered. 6. Obesity with BMI 39 Please review and advise. * Telephone Encounter - Grace Meadows DO - 05/18/2023 12:35 PM EST Rx sent for doxycycline x 10 days. Needs appt in clinic in May * Telephone Encounter - GLORIA Scott - 05/18/2023 12:35 PM EST Medical Surgery Nurse contacted patient and informed her of medication that was sent to her pharmacy, patient verbalized understanding. Patient scheduled for follow up on 06/25/2023. Patient stated that her SpO2 has dropped into the 80s since she last spoke to our office, informed patient that she should go to EDto be evaluated but that she should not drive herself. Patient verbalized understanding and stated that she will go to ED. documented in this encounterUniversity Hospitals Samaritan [facility] Center01-22-2024 Telephone encounter Note* Telephone Encounter - GLORIA Scott - 05/18/2023 12:35 PM EST Patient called and stated that she was recently discharged from [facility] on 05/15/2023.Patient stated that she was in the hospital from 04/13/2023 - 04/29/2023, which [facility] was [facility] due to being on a ventilator. Patient stated that she has been experiencing dark brown sputum and her SpO2 has been 90%-92. Patient states that she switched PCPs and is not able to see her new PCP until 06/01/2023. Her symptoms are: Cough - slight cough, dark brown sputum Wheezing - none SOB - on exertion Denies fevers, body aches, chills and sick contacts Nebulizer: Albuterol (using as prescribed) Inhaler(s): Albuterol (PRN, patient stated she has only used a couple of times) Allergies: Penicillins and Morphine Pharmacy: [facility] Patient last seen on 11/06/2022 for: 1. Combined obstructive and restrictive pattern on PFT 2. Pulmonary Lingular Nodule 11mm 3. Tobacco use 4. CHF with chronic LE edema 5. Moderate BONY (AHI 16.5) with BIPAP ordered. 6. Obesity with BMI 39 Please review and advise. [facility]01-22-2024 Telephone encounter Note* Telephone Encounter - Grace Meadows DO - 05/18/2023 12:35 PM EST Rx sent for doxycycline x 10 days. Needs appt in clinic in May [facility]01-22-2024 Telephone encounter Note* Telephone Encounter - GLORIA Scott - 05/18/2023 12:35 PM EST Medical Surgery Nurse contacted patient and informed her of medication that was sent to her pharmacy, patient verbalized understanding. Patient scheduled for follow up on 06/25/2023. Patient stated that her SpO2 has dropped into the 80s since she last spoke to our office, informed patient that she should go to EDto be evaluated but that she should not drive herself. Patient verbalized understanding and stated that she will go to ED. [facility]08-17-2023 Evaluation note* Encounter Date Diagnosis Assessment Notes Treatment Notes Treatment Clinical Notes Nov, Spinal stenosis of lumbar region, unspecified whether neurogenic claudication present (ICD-10 - M48.061) I independently reviewed the plain x-ray of the lumbar spineAnd the MRI of the lumbar spine which shows a moderate to severe stenosis at L3-4 with foraminal stenosis on the right. The patient complains primarily of low back bilateral sacroiliac and tailbone pain with standing and walking. She gets some anterior thigh discomfort. She states that her legs get shaky when she stands and walks but she has not taken a good walk for over 2 years since her open heart surgery. I think this patient is severely deconditioned I had her health services coordinator my office for at least 10 minutes if not longer with absolutely no claudicatory symptoms whatsoever only back pain I think pain management is the best option for this patient they would like her to start with therapy I think that is a good thought. I will see her on an as-needed basis in the future. Nov, Inflammation of both sacroiliac joints (ICD-10 - M46.1) Nov, Trochanteric bursitis, left hip (ICD-10 - M70.62) Nov, Bilateral low back pain, unspecified chronicity, unspecified whether sciatica present (ICD-10 - M54.50) [employer] Other evaluation noteNo assessment information available [facility] Work Phone: Evaluation note* Diagnosis Left shoulder pain, unspecified chronicity- Primary Arthritis of left shoulder region documented [facility] this encounter [facility] Diagnosis Trigger point of left side of body- Primary Arthritis of left sacroiliac joint (CMS/HCC) Lumbosacral pain Pain of left sacroiliac joint documented in this encounter [facility]* Diagnosis Chronic obstructive pulmonary disease, unspecified COPD type (CMS/HCC)- Primary Chronic respiratory failure with hypoxia and hypercapnia (CMS/HCC) Cigarette smoker Tobacco use disorder documented in this encounter [facility]* Diagnosis Trigger point of left side of body- Primary documented in this encounter [facility]* Diagnosis Trigger point of left side of body- Primary Compression fracture of T6 vertebra with routine healing, subsequent encounter Compression fracture of T8 vertebra with routine healing, subsequent encounter Osteoporotic compression fracture of vertebra with routine healing, subsequent encounter documented in this encounter [facility]* Diagnosis Atherosclerosis of still[place] coronary artery of still[place] heart without angina pectoris Hx of hyperlipidemia [facility]* Diagnosis Peripheral polyneuropathy documented in [facility]* Diagnosis BONY (obstructive sleep apnea)- Primary Obstructive sleep apnea (adult) (pediatric) Hypoxemia associated with sleep documented in this [facility]* Diagnosis Closed wedge compression fracture of T6 vertebra with routine healing- Primary Acute pulmonary embolism without acute cor pulmonale, unspecified pulmonary embolism type (CMS-HCC) Venous insufficiency of both lower extremities Chronic respiratory failure with hypoxia and hypercapnia (CMS-HCC) Chronic heart failure with preserved ejection fraction (CMS-HCC) Spinal stenosis of lumbar region with neurogenic claudication Peripheral polyneuropathy B12 deficiency documented in this encounter [facility]* Diagnosis Chronic heart failure with preserved ejection fraction (CMS-HCC) Atherosclerosis of [place] coronary artery of [place] heart without angina pectoris documented in this encounter [facility]* Diagnosis Closed wedge compression fracture of T6 vertebra with routine healing documented in this encounter [facility]* Diagnosis Closed wedge compression fracture of T6 vertebra with routine healing- Primary Acute pulmonary embolism without acute cor pulmonale, unspecified pulmonary embolism type (CMS-HCC) Spinal stenosis of lumbar region with neurogenic claudication documented in this encounter [facility]* Diagnosis Gastro-esophageal reflux disease without esophagitis documented in this encounter [facility]* Diagnosis Spinal stenosis of lumbar region with neurogenic claudication- Primary documented in this encounter [facility]* Diagnosis Closed wedge compression fracture of T6 vertebra with routine healing documented in this encounter [facility]* Diagnosis Chronic heart failure with preserved ejection fraction ([facility]-HCC)- Primary Bipolar disorder in partial remission, most recent episode unspecified type ([facility]) Atherosclerotic heart disease of still[place] coronary artery with other forms of angina pectoris ([facility]) BMI 40.0-44.9, adult ([facility]) BONY treated with BiPAP documented in this encounter [facility]* Diagnosis Flu-like symptoms- Primary Community acquired pneumonia, unspecified laterality Chronic heart failure with preserved ejection fraction ([facility]-HCC) Community acquired pneumonia, unspecified laterality Chronic heart failure with preserved ejection fraction ([facility]-HCC) documented in this encounter [facility]* Diagnosis Shortness of breath Chronic heart failure with preserved ejection fraction ([facility]) documented in this encounter [facility]* Diagnosis BONY treated with BiPAP- Primary Chronic obstructive pulmonary disease, unspecified COPD type ([facility]) Shortness of breath Cigarette nicotine dependence in remission documented in this encounter [facility]* Diagnosis Venous insufficiency of both lower extremities- Primary Chronic heart failure with preserved ejection fraction ([facility]) Acute pulmonary embolism without acute cor pulmonale, unspecified pulmonary embolism type ([facility]) B12 deficiency documented in this encounter [facility]* Diagnosis Fibromyalgia syndrome Unspecified myalgia and myositis documented in this encounter [facility]* Diagnosis Fibromyalgia syndrome- Primary Unspecified myalgia and myositis Stage 3a chronic kidney disease ([facility]) BONY treated with BiPAP Chronic heart failure with preserved ejection fraction ([facility]) Obesity (BMI 30-39.9) documented in this encounter [facility]* Diagnosis Chronic respiratory failure with hypoxia and hypercapnia ([facility])- Primary COPD exacerbation ([facility]) Obstructive chronic bronchitis with exacerbation Acute respiratory failure with hypoxia and hypercapnia ([facility]) Hypoxia Hypoxemia Chronic respiratory failure with hypoxia and hypercapnia ([facility]) Bipolar 2 disorder, major depressive episode ([facility]) Essential hypertension Unspecified essential hypertension Atherosclerotic heart disease of [place] coronary artery with other forms of angina pectoris ([facility]) documented in this encounter [facility]* Diagnosis Unilateral groin pain, right- Primary Spinal stenosis of lumbar region with neurogenic claudication Chronic respiratory failure with hypoxia and hypercapnia (CMS-HCC) Chronic heart failure with preserved ejection fraction (CMS-HCC) BONY treated with BiPAP Bipolar disorder in partial remission, most recent episode unspecified type ([facility]) documented in this encounter [facility]* Diagnosis BONY treated with BiPAP documented in this encounter [facility]* Diagnosis Spinal stenosis of lumbar region with neurogenic claudication documented in this encounter [facility]* Diagnosis Chronic respiratory failure with hypoxia and hypercapnia (CMS-HCC)- Primary BONY treated with BiPAP Spinal stenosis of lumbar region with neurogenic claudication Chronic heart failure with preserved ejection fraction (CMS-HCC) documented in this encounter [facility]* Diagnosis Chronic heart failure with preserved ejection fraction (CMS-HCC) documented in this encounter [facility]* Diagnosis Spinal stenosis of lumbar region with neurogenic claudication documented in this encounter [facility]* Diagnosis Chronic heart failure with preserved ejection fraction (CMS-HCC) documented in this encounter [facility]* Diagnosis Chronic heart failure with preserved ejection fraction (CMS-HCC) documented in this encounter [facility]* Diagnosis Atherosclerotic heart disease of [place] coronary artery with other forms of angina pectoris ([facility])- Primary documented in this encounter [facility]* Diagnosis IFG (impaired fasting glucose)- Primary Peripheral polyneuropathy Stage 3a chronic kidney disease ([facility]-HCC) Chronic heart failure with preserved ejection fraction ([facility]-HCC) Atherosclerotic heart disease of [place] coronary artery with other forms of angina pectoris ([facility]) documented in this encounter [facility]* Diagnosis Gastro-esophageal reflux disease without esophagitis documented in this encounter [facility]* Diagnosis Contusion of lower leg, unspecified laterality, initial encounter- Primary documented in this encounter [facility]* Diagnosis IFG (impaired fasting glucose)- Primary Chronic obstructive pulmonary disease, unspecified COPD type ([facility]HCC) Stage 3a chronic kidney disease (CMS-HCC) Chronic respiratory failure with hypoxia and hypercapnia ([facility]) Chronic heart failure with preserved ejection fraction ([facility]) Bipolar 2 disorder, major depressive episode ([facility]) BMI 40.0-44.9, adult ([facility]) Atherosclerotic heart disease of [place] coronary artery with other forms of angina pectoris ([facility]) B12 deficiency Peripheral polyneuropathy Arthritis of left sacroiliac joint ([facility]) documented in this encounter [facility]* Diagnosis Chronic heart failure with preserved ejection fraction ([facility]) Atherosclerosis of [place] coronary artery of [place] heart without angina pectoris documented in this encounter [facility]* Diagnosis Gastro-esophageal reflux disease without esophagitis documented in this encounter [facility]* Diagnosis Chronic heart failure with preserved ejection fraction ([facility]-HCC)- Primary Atherosclerotic heart disease of [place] coronary artery with other forms of angina pectoris Hx of CABG Postsurgical aortocoronary bypass status documented in this encounter [facility]* Diagnosis Chronic obstructive pulmonary disease, unspecified COPD type ([facility])- Primary Chronic respiratory failure with hypoxia and hypercapnia ([facility]) BONY (obstructive sleep apnea) Obstructive sleep apnea (adult) (pediatric) documented in this encounter [facility]* Diagnosis Cervicogenic headache- Primary Headache Orthostatic hypotension Chronic heart failure with preserved ejection fraction ([facility]) Fibromyalgia syndrome Unspecified myalgia and myositis documented in this encounter [facility]* Diagnosis Peripheral polyneuropathy Cervicogenic headache Headache documented in this encounter [facility]* Diagnosis Peripheral polyneuropathy documented in this encounter [facility]* Diagnosis Chronic heart failure with preserved ejection fraction ([facility])- Primary Pulmonary hypertension ([facility]) Other chronic pulmonary heart diseases Nonrheumatic tricuspid valve regurgitation Essential hypertension Unspecified essential hypertension Atherosclerosis of [place] coronary artery of still[place] heart without angina pectoris History of four vessel coronary artery bypass graft NSTEMI (non-ST elevated myocardial infarction) ([facility]) Acute myocardial infarction, subendocardial infarction, episode of care unspecified documented in this encounter [facility]* Diagnosis Chronic heart failure with preserved ejection fraction ([facility]HCC)- Primary Essential hypertension Unspecified essential hypertension Pulmonary hypertension ([facility]) Other chronic pulmonary heart diseases Nonrheumatic tricuspid valve regurgitation Atherosclerosis of still[place] coronary artery of still[place] heart without angina pectoris History of four vessel coronary artery bypass graft [facility] Diagnosis Microcytic anemia- Primary Unspecified iron deficiency anemia Gastro-esophageal reflux disease without esophagitis Stage 3a chronic kidney disease (CMS-HCC) Spinal stenosis of lumbar region with neurogenic claudication documented [facility] Diagnosis Atherosclerotic heart disease of [place] coronary artery with other forms of angina pectoris [facility] N[facility]ative - Reported* Type Description Date Medical History alcoholism Medical History Arthritis Medical History emphysema Medical History gall bladder disease Medical History heart disease Medical History high cholesterol Medical History migraine headaches Medical History obesity Medical History pneumonia Medical History psychiatric disorder Medical History chronic depression Medical History anxiety Surgical History C section Surgical History tonsillectomy Surgical History gall bladder Surgical History breast lump removed x3 Surgical History open heart surgery Hospitalization History see above surg. hx. [employer] Other Hospital Discharge instructionsNot on filedocumented in this encounterProMedica Health SystemInstructionsNot on filedocumented in this encounterProMedica Health SystemInstructionsNot on filedocumented in this encounterProMedica Health SystemInstructionsNot on filedocumented in this encounterProMedica Health SystemInstructionsNot on filedocumented in this encounterProMedica Health SystemInstructionsNot on filedocumented in this encounterProMedica Health SystemInstructionsNot on filedocumented in this encounterProMedica Health SystemInstructionsNot on filedocumented in this encounterProMedica Health SystemInstructionsNot on filedocumented in this encounterProMedica Health SystemInstructionsNot on filedocumented in this encounterProMedica Health SystemInstructionsNot on filedocumented in this encounterProMedica Health SystemInstructionsNot on filedocumented in this encounterProMedica Health SystemInstructionsNot on filedocumented in this encounterProMedica Health SystemInstructionsNot on filedocumented in this encounterProMedica Health SystemInstructionsNot on filedocumented in this encounterProMedica Health SystemInstructionsNot on filedocumented in this encounterProMedica Health SystemInstructionsNot on filedocumented in this encounterProMedica Health SystemInstructionsNot on filedocumented in this encounterProMedica Health SystemInstructionsNot on filedocumented in this encounterProUniversity [facility] SystemInstructionsNot on filedocumented in this encounterProUniversity [facility] SystemInstructionsNot on filedocumented in this encounterProUniversity [facility] SystemInstructionsNot on filedocumented in this encounterParma [facility] SystemInstructions* Attachments The following attachments cannot be sent through Care Everywhere. * Esophagitis (Israeli) * Patellar Tendinopathy (Israeli) documented in this encounterProUniversity [facility] SystemInstructionsNot on file documented in this encounterProUniversity [facility] SystemInstructionsNot on file documented in this encounterProUniversity [facility] SystemInstructionsNot on file documented in this encounterPar[facility] SystemInstructionsNot on file documented in this encounterPar[facility] Summary Purpose Family History No Family History Records FoundNo Family History Records FoundNo Family History Records FoundNo Family History Records FoundNo Family History Records FoundNo Family History Records FoundNo Family History Records FoundNo Family History Records Found Advance Directives Advance Directive Response Recorded Date/ Time Advance Directives No December 3:14pm Documents on File Type Date Recorded Patient Night Club Manager Expl 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 Durable Power of Telescope Operator 05/15/2023 8:14 AM Living Will 12/19/2021 11:54 AM [place] Living Will 11/22/2021 1:59 PM Durable Power of [employer] 11/22/2021 1:58 PM Date Activated Date Inactivated Comments 08/28/2023 4:38 AM 08/29/2023 11:50 AM Date Activated Date Inactivated Comments 08/28/2023 4:09 AM 08/28/2023 4:38 AM Date Activated Date Inactivated Comments 07/25/2023 9:03 PM 07/27/2023 4:44 PM Date Activated Date Inactivated Comments 05/28/2023 1:53 AM 05/28/2023 12:27 PM Date Activated Date Inactivated Comments 04/14/2023 10:09 PM 04/29/2023 6:44 PM Date Activated Date Inactivated Comments 07/25/2023 9:03 PM 07/27/2023 4:44 PM Date Activated Date Inactivated Comments 05/28/2023 1:53 AM 05/28/2023 12:27 PM Date Activated Date Inactivated Comments 04/14/2023 10:09 PM 04/29/2023 6:44 PM Date Activated Date Inactivated Comments 08/06/2020 11:59 AM 08/23/2020 3:53 PM Date Activated Date Inactivated Comments 08/06/2020 11:59 AM 08/06/2020 11:59 AM Documents on File Type Date Recorded Patient Night Club Manager Expl anation Durable Power of [employer] Operator 05/15/2023 8:14 AM Living Will 12/19/2021 11:54 AM [place] Living Will 11/22/2021 1:59 PM Durable Power of [employer] 11/22/2021 1:58 PM Date Activated Date Inactivated Comments 07/25/2023 9:03 PM 07/27/2023 4:44 PM Date Activated Date Inactivated Comments 05/28/2023 1:53 AM 05/28/2023 12:27 PM Date Activated Date Inactivated Comments 04/14/2023 10:09 PM 04/29/2023 6:44 PM Date Activated Date Inactivated Comments 08/06/2020 11:59 AM 08/23/2020 3:53 PM Date Activated Date Inactivated Comments 08/06/2020 11:59 AM 08/06/2020 11:59 AM Latest Code Status on File Code Status Date Activated Date Inactivated Comments Full Code 04/14/2023 10:09 PM 04/29/2023 6:44 PM Code Status History Code Status Date Activated Date Inactivated Comments Full Code 08/06/2020 11:59 AM 08/23/2020 3:53 PM Full Code 08/06/2020 11:59 AM 08/06/2020 11:59 AM Full Code 01/09/2020 6:57 AM 01/10/2020 10:47 PM Latest Code Status on File Code Status Date Activated Date Inactivated Comments Full Code 05/28/2023 1:53 AM 05/28/2023 12:27 PM Code Status History Code Status Date Activated Date Inactivated Comments Full Code 04/14/2023 10:09 PM 04/29/2023 6:44 PM Full Code 08/06/2020 11:59 AM 08/23/2020 3:53 PM Full Code 08/06/2020 11:59 AM 08/06/2020 11:59 AM Full Code 01/09/2020 6:57 AM 01/10/2020 10:47 PM Latest Code Status on File Code Status Date Activated Date Inactivated Comments Full Code 05/28/2023 1:53 AM 05/28/2023 12:27 PM Code Status History Code Status Date Activated Date Inactivated Comments Full Code 04/14/2023 10:09 PM 04/29/2023 6:44 PM Full Code 08/06/2020 11:59 AM 08/23/2020 3:53 PM Full Code 08/06/2020 11:59 AM 08/06/2020 11:59 AM Full Code 01/09/2020 6:57 AM 01/10/2020 10:47 PM Latest Code Status on File Code Status Date Activated Date Inactivated Comments Full Code 07/25/2023 9:03 PM 07/27/2023 4:44 PM Code Status History Code Status Date Activated Date Inactivated Comments Full Code 05/28/2023 1:53 AM 05/28/2023 12:27 PM Full Code 04/14/2023 10:09 PM 04/29/2023 6:44 PM Full Code 08/06/2020 11:59 AM 08/23/2020 3:53 PM Full Code 08/06/2020 11:59 AM 08/06/2020 11:59 AM Date Activated Date Inactivated Comments 08/28/2023 4:38 AM 08/29/2023 11:50 AM Date Activated Date Inactivated Comments 08/28/2023 4:09 AM 08/28/2023 4:38 AM Date Activated Date Inactivated Comments 07/25/2023 9:03 PM 07/27/2023 4:44 PM Date Activated Date Inactivated Comments 05/28/2023 1:53 AM 05/28/2023 12:27 PM Date Activated Date Inactivated Comments 04/14/2023 10:09 PM 04/29/2023 6:44 PM Latest Code Status on File Code Status Date Activated Date Inactivated Comments Full Code 07/25/2023 9:03 PM 07/27/2023 4:44 PM Code Status History Code Status Date Activated Date Inactivated Comments Full Code 05/28/2023 1:53 AM 05/28/2023 12:27 PM Full Code 04/14/2023 10:09 PM 04/29/2023 6:44 PM Full Code 08/06/2020 11:59 AM 08/23/2020 3:53 PM Full Code 08/06/2020 11:59 AM 08/06/2020 11:59 AM Documents on File Type Date Recorded Patient Night Club Manager Expl anation DNR Physician Order 12/03/2024 3:17 AM DNR Comfort Care 12/03/24 Durable Power of Telescope Operator 05/15/2023 8:14 AM Living Will 12/19/2021 11:54 AM LIVING [place] [employer] & DPOA Living Will 11/22/2021 1:59 PM Durable Power of Telescope Operator 11/22/2021 1:58 PM Date Activated Date Inactivated Comments 12/04/2024 9:11 AM 12/04/2024 12:20 PM Date Activated Date Inactivated Comments 12/03/2024 3:16 AM 12/03/2024 10:34 AM Date Activated Date Inactivated Comments 08/28/2023 4:38 AM 08/29/2023 11:50 AM Date Activated Date Inactivated Comments 08/28/2023 4:09 AM 08/28/2023 4:38 AM Date Activated Date Inactivated Comments 07/25/2023 9:03 PM 07/27/2023 4:44 PM Chief Complaint and Reason for Visit Chief Complaint m54.50 Reason for Referral Specialty Diagnoses / Procedures Referred By Contac t Referred To Contact Diagnoses Chronic respiratory failure with hypoxia and hypercapnia (CMS-HCC) Procedures Follow-up with primary care provider Rajni Cardozo, [address] [place] [address] Referral ID Status Reason Start Date Expiration Date V isits Requested Visits Authorized [id number] Pending Review 07/27/2023 07/26/2024 1 1 Specialty Diagnoses / Procedures Referred By Contac t Referred To Contact Procedures Adult diet Rajni Cardozo, [address] [place] [address] Referral ID Status Reason Start Date Expiration Date V isits Requested Visits Authorized [id number] Pending Review 07/27/2023 07/26/2024 1 1 Specialty Diagnoses / Procedures Referred By Contac t Referred To Contact Home Health Services Diagnoses Chronic heart failure with preserved ejection fraction (CMS-HCC) Rajni Cardozo DO [address] [place] [address] [facility] [address] [place] [address] Phone: [phone] Fax: [phone] Referral ID Status Reason Start Date Expiration Date Visits Requested Visits Authorized [id number] Pending Review Patient Preference 07/01/2023 06/30/2024 1 1 Specialty Diagnoses / Procedures Referred By Contac t Referred To Contact Diagnoses BONY treated with BiPAP Procedures Split Night Sleep Study DoriGrace, DO [address] [address] Referral ID Status Reason Start Date Expiration Date V isits Requested Visits Authorized [id number] Pending Review 06/25/2023 06/24/2024 1 1 Specialty Diagnoses / Procedures Referred By Contac t Referred To Contact Diagnoses BONY (obstructive sleep apnea) Hypoxemia associated with sleep Procedures Polysomnography 4 or more parameters with PAP titration Grace Meadows, DO [address] [address] Referral ID Status Reason Start Date Expiration Date V isits Requested Visits Authorized [id number] Pending Review 08/14/2023 08/13/2024 1 1 Specialty Diagnoses / Procedures Referred By Contac t Referred To Contact Diagnoses Trigger point of left side of body Procedures Trigger Point Injection ([place] [address] [place] [address]): left gluteus tej [facility] [address] [place] [address] Referral ID Status Reason Start Date Expiration Date V isits Requested Visits Authorized [id number] Incomplete 12/29/2023 06/26/2024 1 1 Specialty Diagnoses / Procedures Referred By Contac t Referred To Contact Orthopaedic Surgery Diagnoses Left shoulder pain, unspecified chronicity Procedures L Inj/Asp: L subacromial bursa Eusebia Huertas, DO [address] [place] [address] Referral ID Status Reason Start Date Expiration Date V isits Requested Visits Authorized [id number] Authorized 01/26/2024 07/24/2024 1 1 Additional Source Comments INFORMATION SOURCE (unrecogn ized section and content) DATE CREATED AUTHOR 02/03/2018 [facility] DATE CREATED AUTHOR AUTHOR'S ORGANIZ ATION 12/21/2022 [facility] DATE CREATED AUTHOR AUTHOR'S ORGANIZ ATION 05/03/2023 [facility] DATE CREATED AUTHOR AUTHOR'S ORGANIZ ATION 07/10/2024 [facility] DATE CREATED AUTHOR AUTHOR'S ORGANIZ ATION 09/24/2024 [facility] DATE CREATED AUTHOR AUTHOR'S ORGANIZ ATION 12/17/2024 [facility] DATE CREATED AUTHOR AUTHOR'S ORGANIZ ATION 12/24/2024 [facility] DATE CREATED AUTHOR AUTHOR'S ORGANIZ ATION 01/14/2025 [facility] Care Teams (unrecognized sec tion and content) Team Status: Active Member Role Status Dates Myriam Fowler PA-C Primary Care Provider Activ e Team Status: Inactive Member Role Status Dates Myriam Fowler PA-C Primary Care Provider Activ e John Carson MD Attending Provider Active Cut Filer Relationship Specialty Start Date End Date Rajni Cardozo MD [address] [place] [address] PCP - General Internal Medicine 08/11/23 Cut Filer Relationship Specialty Start Date End Date Rajni Cardozo MD [address] [place] [address] PCP - General Internal Medicine 08/11/23 Cut Filer Relationship Specialty Start Date End Date Rajni Cardozo MD [address] [place] [address] PCP - General Internal Medicine 08/11/23 Cut Filer Relationship Specialty Start Date End Date Rajni Cardozo MD [address] [place] [address] PCP - General Internal Medicine 08/11/23 Cut Filer Relationship Specialty Start Date End Date Rajni Cardozo MD [address] [place] [address] PCP - General Internal Medicine 08/11/23 Cut Filer Relationship Specialty Start Date End Date Rajni Cardozo MD [address] [place] [address] PCP - General Internal Medicine 08/11/23 Cut Filer Relationship Specialty Start Date End Date Rajni Cardozo MD [address] [facility] [place] [address] PCP - General Internal Medicine 08/11/23 Cut Filer Relationship Specialty Start Date End Date Rajni Cardozo MD [address] [place] [address] PCP - General Internal Medicine 08/11/23 Cut Filer Relationship Specialty Start Date End Date Rajni Cardozo MD [address] [facility] [place] [address] PCP - General Internal Medicine 08/11/23 Cut Filer Relationship Specialty Start Date End Date Rajni Cardozo DO [address] [place] [address] PCP - General Internal Medicine 12/17/23 Cut Filer Relationship Specialty Start Date End Date Rajni Cardozo DO [address] [facility] [place] [place] [address] PCP - General Internal Medicine 12/17/23 Cut Filer Relationship Specialty Start Date End Date Rajni Cardozo DO [address] [place] [address] PCP - General Internal Medicine 07/01/23 Cut Filer Relationship Specialty Start Date End Date Rajni Cardozo DO [address] [facility] [place] [address] PCP - General Internal Medicine 07/01/23 Cut Filer Relationship Specialty Start Date End Date Rajni Cardozo DO [address] [facility] [place] [address] PCP - General Internal Medicine 07/01/23 Cut Filer Relationship Specialty Start Date End Date Rajni Cardozo DO [address] [facility] [place] [address] PCP - General Internal Medicine 07/01/23 Cut Filer Relationship Specialty Start Date End Date Rajni Cardozo DO [address] [facility] [place] [address] PCP - General Internal Medicine 08/24/23 Cut Filer Relationship Specialty Start Date End Date Rajni Cardozo DO [address] [facility] [place] [address] PCP - General Internal Medicine 08/24/23 Cut Filer Relationship Specialty Start Date End Date Rajni Cardozo DO [address] [facility] [place] [address] PCP - General Internal Medicine 08/24/23 Cut Filer Relationship Specialty Start Date End Date No Pcp, [place] [address] PCP - General Family Medicine 04/13/23 Cut Filer Relationship Specialty Start Date End Date No Pcp, [place] [address] PCP - General Family Medicine 04/13/23 Cut Filer Relationship Specialty Start Date End Date Rajni Cardozo DO [address] [place] [address] PCP - General Internal Medicine 08/24/23 Cut Filer Relationship Specialty Start Date End Date Rajni Cardozo DO [address] [place] [address] PCP - General Internal Medicine 08/24/23 Cut Filer Relationship Specialty Start Date End Date Rajni Cardozo DO [address] [place] [address] PCP - General Internal Medicine 08/24/23 Cut Filer Relationship Specialty Start Date End Date Rajni Cardozo DO [address] [place] [address] PCP - General Internal Medicine 08/24/23 Cut Filer Relationship Specialty Start Date End Date No Pcp, [place] [address] PCP - General Family Medicine 04/13/23 Cut Filer Relationship Specialty Start Date End Date Rajni Cardozo DO [address] [place] [address] PCP - General Internal Medicine 08/24/23 Cut Filer Relationship Specialty Start Date End Date Rajni Cardozo DO [address] [place] [address] PCP - General Internal Medicine 08/24/23 Cut Filer Relationship Specialty Start Date End Date No Pcp, [place] [address] PCP - General Family Medicine 04/13/23 Cut Filer Relationship Specialty Start Date End Date No Pcp, [place] [address] PCP - General Family Medicine 04/13/23 Cut Filer Relationship Specialty Start Date End Date Rajni Cardozo DO [address] [place] [address] PCP - General Internal Medicine 08/24/23 Cut Filer Relationship Specialty Start Date End Date No Pcp, [place] [address] PCP - General Family Medicine 04/13/23 Cut Filer Relationship Specialty Start Date End Date Rajni Cardozo DO [address] [place] [address] PCP - General Internal Medicine 07/01/23 Cut Filer Relationship Specialty Start Date End Date Rajni Cardozo DO [address] [place] [address] PCP - General Internal Medicine 07/01/23 Cut Filer Relationship Specialty Start Date End Date Rajni Cardozo DO [address] [place] [address] PCP - General Internal Medicine 08/24/23 Cut Filer Relationship Specialty Start Date End Date Rajni Cardozo DO [address] [place] [address] PCP - General Internal Medicine 08/24/23 Cut Filer Relationship Specialty Start Date End Date Rajni Cardozo DO [address] [facility] [place] [address] PCP - General Internal Medicine 07/01/23 Cut Filer Relationship Specialty Start Date End Date Rajni Cardozo DO [address] [place] [address] PCP - General Internal Medicine 07/01/23 Cut Filer Relationship Specialty Start Date End Date Rajni Cardozo DO [address] [facility] [place] [address] PCP - General Internal Medicine 12/17/23 Cut Filer Relationship Specialty Start Date End Date Rajni Cardozo DO [address] [facility] [place] [address] PCP - General Internal Medicine 12/17/23 Cut Filer Relationship Specialty Start Date End Date Rajni Cardozo DO [address] [facility] [place] [address] PCP - General Internal Medicine 07/01/23 Cut Filer Relationship Specialty Start Date End Date Rajni Cardozo DO [address] [facility] [place] [address] PCP - General Internal Medicine 12/17/23 Cut Filer Relationship Specialty Start Date End Date Rajni Cardozo DO [address] [facility] [place] [address] PCP - General Internal Medicine 12/17/23 Cut Filer Relationship Specialty Start Date End Date Rajni Cardozo DO [address] [facility] [place] [address] PCP - General Internal Medicine 12/17/23 Cut Filer Relationship Specialty Start Date End Date Rajni Cardozo DO [address] [facility] [place] [address] PCP - General Internal Medicine 12/17/23 Cut Filer Relationship Specialty Start Date End Date Rajni Cardozo DO [address] [facility] [place] [address] PCP - General Internal Medicine 12/17/23 Cut Filer Relationship Specialty Start Date End Date Rajni Cardozo DO [address] [facility] [place] [address] PCP - General Internal Medicine 12/17/23 Cut Filer Relationship Specialty Start Date End Date Rajni Cardozo DO [address] [facility] [place] [address] PCP - General Internal Medicine 12/17/23 Cut Filer Relationship Specialty Start Date End Date Rajni Cardozo DO [address] [facility] [place] [address] PCP - General Internal Medicine 12/17/23 Cut Filer Relationship Specialty Start Date End Date Rajni Cardozo DO [address] [facility] [place] [address] PCP - General Internal Medicine 12/17/23 Cut Filer Relationship Specialty Start Date End Date Rajni Cardozo MD PCP - General Internal Medicine 08/11/23 Cut Filer Relationship Specialty Start Date End Date Rajni Cardozo MD PCP - General Internal Medicine 08/11/23 Cut Filer Relationship Specialty Start Date End Date Rajni Cardozo DO [address] [facility] [place] [address] PCP - General Internal Medicine 12/17/23 Cut Filer Relationship Specialty Start Date End Date Rajni Cardozo DO [address] [place] [address] PCP - General Internal Medicine 12/17/23 Cut Filer Relationship Specialty Start Date End Date Rajni Cardozo DO [address] [facility] [place] [address] PCP - General Internal Medicine 12/17/23 Cut Filer Relationship Specialty Start Date End Date Rajni Cardozo DO [address] [facility] [place] [address] PCP - General Internal Medicine 12/17/23 Cut Filer Relationship Specialty Start Date End Date Rajni Cardozo DO [address] [facility] [address] PCP - General Internal Medicine 12/17/23 Cut Filer Relationship Specialty Start Date End Date Rajni Cardozo DO [address] [place] [address] PCP - General Internal Medicine 12/17/23 Cut Filer Relationship Specialty Start Date End Date Rajni Cardozo MD PCP - General Internal Medicine 08/11/23 Cut Filer Relationship Specialty Start Date End Date Rajni Cardozo DO [address] [place] [address] PCP - General Internal Medicine 12/17/23 Cut Filer Relationship Specialty Start Date End Date Rajni Cardozo DO [address] [place] [address] PCP - General Internal Medicine 12/17/23 Goals (unrecognized section and content) Goals may be documented in a n alternate sectionNo Information REASON FOR VISIT (unrecogniz ed section and content) Reason Comments Pain Reason Comments Chronic hypoxic respiratory failure Cons ultation Reason Comments Follow-up Reason Onset Date Comments Med Refill 04/25/2024 Reason Comments Med Refill Reason Onset Date Comments Med Refill 08/14/2023 Reason Onset Date Comments Sleep Lab 08/17/2023 Pap Order Reason Comments compression fractor and leakage in legs Reason Onset Date Comments Med Refill 10/01/2023 Reason Comments 1 month recheck Reason Onset Date Comments Med Refill 09/22/2023 Reason Comments New Patient Reason Comments Cough Congestion,cough yel low, 1 week Reason Comments Hospital Follow-up COVID Pneumonia - Ea rly AprilXR: 04/28/2023 and 05/27/2023 Reason Onset Date Comments Sleep Lab 06/25/2023 Split Night Reason Comments Follow-up 1 month Reason Comments Hyperlipidemia Hypertension Reason Comments Shortness of Breath Specialty Diagnoses / Procedures Referred By Contac t Referred To Contact Diagnoses Shortness of breath Hypoxia COPD exacerbation ([facility]) Acute respiratory failure with hypoxia and hypercapnia ([facility]-HCC) Rajni Gimenez MD [address] [place] [address], [address] [place] [address] Referral ID Status Reason Start Date Expiration Date Visits Re quested Visits Authorized [id number] 1 1 Specialty Diagnoses / Procedures Referred By Rick rahman Referred To Contact Diagnoses BONY (obstructive sleep apnea) Hypoxemia associated with sleep Procedures Polysomnography 4 or more parameters with PAP titration Grace Meadows, DO [address] [address] Referral ID Status Reason Start Date Expiration Date Visits Re quested Visits Authorized [id number] Closed 08/14/2023 08/13/2024 1 1 Reason Comments transition care Specialty Diagnoses / Procedures Referred By Rick rahman Referred To Contact Diagnoses BONY treated with BiPAP Procedures Split Night Sleep Study Alonso Meadowsmisti Garcia, DO [address] [address] Referral ID Status Reason Start Date Expiration Date Visits Re quested Visits Authorized [id number] Closed 06/25/2023 06/24/2024 1 1 Reason Comments Hypertension Hyperlipidemia Reason Onset Date Comments Med Refill 01/18/2024 Reason Onset Date Comments Med Refill 01/20/2024 Reason Comments Med Change Request Reason Comments Follow-up EST PT F/U 4 MS L/S RDG Reason Comments COPD Reason Comments Controlled Substance Reason Onset Date Comments Med Refill 07/15/2024 Reason Comments Follow-up EST PT F/U 6 MS L/S TMP Reason Comments Sleep Apnea 6 month follow up COPD 6 month follow up Reason Comments Hypertension Hyperlipidemia Controlled medicatio ns, Headaches for months now Reason Comments swelling legs/feet Reason Comments BP/ ok , Headache, right knee hurting, s welling. 2 weeks Question about lasix Reason Comments Congestive Heart Failure Follow-up Fatigue Shortness of Breath Edema Dizziness Nausea Reason Onset Date Comments BMP lab work 11/30/2024 Reason Onset Date Comments Transition Of Care 12/08/2024 Reason Comments TCM/ Respiratory Failure Scheduled Active and Recently Administ ered Medications (unrecognized section and content) Medication Order 07/25/2023 07/26/2023 07/27/2023 ARIPiprazole (ABILIFY) tablet 15 mg (CANCELED) 15 mg, oral, Bedtime, First dose on 07/25/23 at 2200, Look-alike/sound-alike medication - verify indication for use. 2200 (Not Given - Provider: Lissette Mathews RN - Reason: Medication not available) 2139 (Given - Provider: Mary Cee, VICTOR M) ARIPiprazole (ABILIFY) tablet 15 mg 15 mg, oral, Daily, First dose on 07/27/23 at 2100, Look-alike/sound-alike medication - verify indication for use. aspirin EC tablet 81 mg 81 mg, oral, Daily, First dose on 07/26/23 at 0900, Do not crush or chew. 0814 (Given - Provider: Gale Chiang RN) 0818 (Given - Provider: Gale Chiang RN) atorvastatin (LIPITOR) tablet 80 mg 80 mg, oral, Daily, First dose on 07/26/23 at 0900, Look-alike/sound-alike medication - verify indication for use. 0815 (Given - Provider: Gale Chiang RN) 0817 (Given - Provider: Gale Chiang RN) cefTRIAXone (ROCEPHIN) IVPB 1000 mg/50 mL in iso-osmotic dextrose (20 mg/mL premix) (COMPLETED) 1,000 mg, intravenous, at 100 mL/hr, Administer over 30 Minutes, Once, On 07/25/23 at 1710, For 1 dose, Look-alike/sound-alike medication - verify indication for use. Do not co-administer with calcium-containing solutions such as Lactated Ringers., Indication: Community-acquired pneumonia 1803 (New Bag - Provider: Vicki Golden RN)183 (Stop Bag - Provider: Vicki Golden RN) clonazePAM (KlonoPIN) tablet 0.5 mg 0.5 mg, oral, 2 times daily, First dose on 07/26/23 at 1000, Look-alike/sound-alike medication - verify indication for use. 0941 (Given - Provider: Gale Chiang RN)2139 (Given - Provider: Mary Cee RN) 817 (Given - Provider: Gale Chiang, VICTOR M) doxycycline (VIBRAMYCIN) capsule 100 mg 100 mg, oral, 2 times daily, First dose on 07/25/23 at 2000, May give with meals to decrease GI upset. Administer with at least 8 ounces of water and have patient sit up for at least 30 minutes after taking to reduce the risk of esophageal irritation and ulceration., Indication: Community-acquired pneumonia 2201 (Given - Provider: Lissette Mathews RN) 913 (Given - Provider: Gale Chiang RN)2139 (Given - Provider: Mary Cee, VICTOR M) 08 (Given - Provider: Gale Chiang, RN) empagliflozin (JARDIANCE) tablet 10 mg 10 mg, oral, Daily, First dose on 07/26/23 at 0900 0915 (Given - Provider: Gale Chiang, VICTOR M) 08 (Given - Provider: Gale Chiang, VICTOR M) enoxaparin (LOVENOX) syringe 40 mg 40 mg, subcutaneous, Daily, First dose on 07/26/23 at 0600, Look-alike/sound-alike medication - verify indication for use. 06 (Given - Provider: Lissette Mathews RN) 06 (Given - Provider: Mary Cee RN) furosemide (LASIX) injection 40 mg (COMPLETED) 40 mg, intravenous, Once, On 07/25/23 at 2115, For 1 dose, Look-alike/sound-alike medication - verify indication for use. IVP rate = 20 mg/min 2158 (Given - Provider: Lissette Mathews RN) gabapentin (NEURONTIN) capsule 200 mg 200 mg, oral, 3 times daily, First dose on 07/25/23 at 2200, Look-alike/sound-alike medication - verify indication for use. 2151 (Given - Provider: Lisestte Mathews RN) 06 (Given - Provider: Lissette Mathews RN)132 (Given - Provider: Gale Chiang, VICTOR M)2139 (Given - Provider: Mary Cee RN) 06 (Given - Provider: Mary Cee RN)132 (Given - Provider: Gale Chiang, VICTOR M) ipratropium-albuteroL (DUONEB) 0.5 mg-3 mg(2.5 mg base)/3 mL nebulizer solution 3 mL (COMPLETED) 3 mL, nebulization, Once, On 07/25/23 at 1710, For 1 dose, Implement INPATIENT/ED Bronchodilator Clinical Practice Guidelines? Yes, Document: [email or web address]\epic \EPIC_Reference\Orders\Re spiratory Care Guidelines\CPG Bronchodilator 2020.pdf 1731 (Given - Provider: Vicki Henry RCP) ipratropium-albuteroL (DUONEB) 0.5 mg-3 mg(2.5 mg base)/3 mL nebulizer solution 3 mL (COMPLETED) 3 mL, nebulization, Once, On 07/25/23 at 1835, For 1 dose, Implement INPATIENT/ED Bronchodilator Clinical Practice Guidelines? Yes, Document: \[email or web address]\epic \EPIC_Reference\Orders\Re spiratory Care Guidelines\CPG Bronchodilator 2020.pdf 193 (Given - Provider: Joan Malone RCP) ipratropium-albuteroL (DUONEB) 0.5 mg-3 mg(2.5 mg base)/3 mL nebulizer solution 3 mL 3 mL, nebulization, Every 6 hours, First dose on 07/25/23 at 2115, Implement INPATIENT/ED Bronchodilator Clinical Practice Guidelines? Yes, Document: \[email or web address]\epic \EPIC_Reference\Orders\Re spiratory Care Guidelines\CPG Bronchodilator 2020.pdf 2115 (Not Given - Provider: Joan Malone RCP - Reason: Other - Comment: Given at 1933) 0148 (Given - Provider: Joan Malone RCP)0721 (Given - Provider: Christy Andrew RCP)1431 (Given - Provider: Christy Andrew RCP)1923 (Given - Provider: Joan Malone RCP) 0126 (Given - Provider: Joan Malone RCP)0802 (Given - Provider: Rebecca Martinez RCP)1400 (Due) lamoTRIgine (LaMICtal) tablet 100 mg 100 mg, oral, Daily, First dose on 07/26/23 at 0900, Look-alike/sound-alike medication - verify indication for use. 0915 (Given - Provider: Gale Chiang RN) 0826 (Given - Provider: Gale Chiang RN) methylPREDNISolone sod suc(PF) (Solu-MEDROL) injection 40 mg (CANCELED) 40 mg, intravenous, Every 12 hours scheduled, First dose on 07/25/23 at 2115, May alter blood glucose or insulin requirements. Look-alike/sound-alike medication - verify indication for use. 2155 (Given - Provider: Lissette Mathews RN) 08 (Given - Provider: Gale Chiang, VICTOR M)2139 (Given - Provider: Mary Cee RN) 0819 (Given - Provider: Gale Chiang RN) pantoprazole (PROTONIX) EC tablet 40 mg 40 mg, oral, Every morning before breakfast, First dose on 07/26/23 at 0700, Look-alike/sound-alike medication - verify indication for use. If patient is receiving enteral feeding, consider alternative PPI or continue IV pantoprazole until the delayed-release tablet can be taken orally, Indication: GERD 0610 (Given - Provider: Lissette Mathews RN) 0604 (Given - Provider: Mary Cee RN) potassium chloride (KLOR-CON M 20) CR tablet 20 mEq 20 mEq, oral, Daily, First dose on 07/26/23 at 0900, Do not crush or chew. 0813 (Given - Provider: Gale Chiang RN) 0818 (Given - Provider: Gale Chiang RN) predniSONE (DELTASONE) tablet 40 mg 40 mg, oral, Daily with breakfast, First dose on Thu07/28/23 at 0800, Look-alike/sound-alike medication - verify indication for use. Food-Drug Interaction Education Required May alter blood glucose or insulin requirements Take/give with food Look-alike/sound-alike medication - verify indication for use. propranoloL (INDERAL) tablet 40 mg (CANCELED) 40 mg, oral, 2 times daily, First dose on 07/25/23 at 2115, Look-alike/sound-alike medication - verify indication for use. 2211 (Not Given - Provider: Lissette Mathews RN - Reason: See Provider Order) 0818 (Given - Provider: Gale Chiang RN) sodium chloride 0.9 % flush 3 mL 3 mL, intravenous, Every 12 hours scheduled, First dose on 07/25/23 at 2115 2201 (Given - Provider: Lissette Mathews RN) 0816 (Given - Provider: Gale Chiang RN)214 (Given - Provider: Mary Cee RN) 0824 (Given - Provider: Gale Chiang, VICTOR M) spironolactone (ALDACTONE) tablet 25 mg 25 mg, oral, Daily, First dose on 07/26/23 at 0900 0814 (Given - Provider: Gale Chiang RN) 0818 (Given - Provider: Gale Chiang, VICTOR M) torsemide (DEMADEX) tablet 80 mg 80 mg, oral, Daily, First dose on 07/26/23 at 1000 1014 (Given - Provider: Gale Chiang RN) 0825 (Given - Provider: Gale Chiang RN) venlafaxine XR (EFFEXOR XR) 24 hr capsule 225 mg 225 mg, oral, Daily with breakfast, First dose on 07/26/23 at 1000, Look-alike/sound-alike medication - verify indication for use. Do not crush or chew. 1014 (Given - Provider: Gale Chiang RN) 0746 (Given - Provider: Gale Chiang RN) PRN Medication Order 07/25/2023 07/26/2023 07/27/2023 acetaminophen (TYLENOL) tablet 650 mg 650 mg, oral, Every 4 hours PRN, headaches, moderate pain - pain scale 4-6, Starting on 07/25/23 at 2101 0847 (Given - Provider: Gale Chiang RN)2140 (Given - Provider: Mary Cee RN) 0604 (Given - Provider: Mary Cee RN) sodium chloride 0.9 % flush 3 mL 3 mL, intravenous, As needed, line care, before and after each intermittent use, Starting on 07/25/23 at 2058 sodium chloride 0.9 % flush bag 25 mL, intravenous, at 100 mL/hr, Administer over 15 Minutes, As needed, line care, line care after IVPB administration, Starting on 07/25/23 at 2059 sodium chloride 0.9 % infusion 20 mL/hr, intravenous, Continuous PRN, to maintain patency of lines, Starting on 07/25/23 at 2059 FOR RECORDS PERTAINING TO PATIENTS WHO ARE OR HAVE BEEN ENROLLED IN A CHEMICAL DEPENDENCY/SUBSTANCEABUSE PROGRAM, SOME INFORMATION MAY BE OMITTED. This clinical summary was aggregated from multiple sources. Caution should be exercised in using it in the provision of clinical care. This summary normalizes information from multiple sources, and as a consequence, information in this document may materially change the coding, format and clinical context of patient data. In addition, data may be omitted in some cases. CLINICAL DECISIONS SHOULD BE BASED ON THE PRIMARY CLINICAL RECORDS. [facility]. provides no warranty or guarantee of the accuracy or completeness of information in this document.
== END 2025-02-02 09:48 | disposition home or self-care (01) ==
LOC: PM 09:47
PROVIDERS: PCP Internal Medicine; Visit Provider Nurse Practitioner
DX: M48.062 Spinal stenosis, lumbar region with neurogenic claudication (principal); M46.1 Sacroiliitis, not elsewhere classified; M47.816 Spondylosis without myelopathy or radiculopathy, lumbar region
CPT/HCPCS: G0463

== ENCOUNTER 2025-02-13 11:07 | Day surgery (SDC) | payer MEDICARE, MEDICAID, SELFPAY ==
--- OUTSIDE RECORDS SUMMARY | 2025-02-06 12:00 | XMS_ITS | Encounter Summary ---
Author Organization [facility] tem Address [id number] [place] [address] Care Team Providers Care Machining Technician Name Role Phone Obdulia Michael Janae CABRERA Primary Care Provider [phone] Reason for Visit * Reason Comments Congestive Heart Failure Follow-up Encounter Details Date Type Department Care Team (Latest Contact Info) Description 02/06/2025 12:00 PM EDT Office Visit [facility] [address] [place] [id number] Risa Summers MD [address], [place] [id number] Chronic diastolic heart failure (CMS-HCC) (Primary Dx); Pulmonary hypertension (CMS-HCC); Nonrheumatic tricuspid valve regurgitation Social History Tobacco Use Types Packs/Day Years Used Date Smoking Tobacco: Former Cigarettes 1 40 0 09/1981 - 09/2021 Smokeless Tobacco: Never Comments:5-6 cigerettes a da y Alcohol Use Standard Drinks/Week Comments Not Currently 0 (1 standard drink = 0.6 oz pur e alcohol) last use 15 years ago [facility] Utilities Answer Date Recorded In the past 12 months has e electric, gas, oil, or water company threatened to shut off services in your home? No 12/04/2024 Social Connection and Isolation Panel Answer Date Recorded In a typical week, how many times do you talk on the phone with family, friends, or neighbors? Three times a week 07/25/2023 How often do you get togethe r with friends or relatives? Three times a week 07/25/2023 How often do you attend chur or uatsdin services? More than 4 times per year [...] Answer Date Recorded Total Score 0 12/15/2024 [facility] of Occupat ional Health - Occupational Stress [...] Sign Reading Time Taken Comments Blood Pressure 100/80 02/06/2025 12:10 PM EDT Pulse 96 02/06/2025 12:10 PM EDT Temperature - - Respiratory Rate - - Oxygen Saturation 97% 02/06/2025 12:10 PM EDT Inhaled Oxygen Concentration - - Weight 108 kg (238 lb 1.6 oz) 02/06/2025 12:10 P M EDT Height 175.3 cm (5' 9.02 ) 02/06/2025 12:10 PM E DT Body Mass Index 35.14 02/06/2025 12:10 PM EDT documented in this encounter Patient Instructions * Patient Instructions* Risa Summers MD - 02/06/2025 12:00 PM EDT My recommendations for you in clinic today are as follows: Blood work in 2 weeks Go back to taking spironolactone Start valsartan once a day Increase torsemide to 40 mg daily Additionally: Check your weight every day and [...] overnight or more than 4 pounds in aweek. Call our office if you notice worsening shortness of breath, bloating or swelling. Also call if youfeel weak, dizzy or unusually fatigued. Please do not hesitate to contact our office by calling the Heart Failure Clinic at [phone]. Please call [phone] for emergencies. documented in this encounter Progress Notes * Risa Summers MD - 02/06/2025 3:30 PM EDT Images from the original note were not included. [facility] Patient: Monet Recinos Date of : 1960 Age: 64 y.o. Date of Encounter: 02/06/2025 REASON FOR VISIT: Chronic heart failure. Dear Michael Steiner Jr, DO We [facility] the [facility]. Ms. Recinos is a 64 y.o. female whom we are seeing as a routine follow visit for her history of chronic heart failure with preserved ejection fraction. 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 Recinos is here to see me for initial evaluation of her heart failure symptoms she has been followed by our nurse practitioner here in the Heart failure Clinic over the last 2-3 years. She has not had any recent hospitalizations or visits to the ER for heart failure. She had been on torsemide before but had acute kidney injury and taken off of it and was put on intermittent Lasix. She has had about 50 lb weight loss over the last 2 years from the 280s down to the 230s. Overall, she has a good understanding of her issues and knows how to use additional diuretics as she did yesterday. She logsher vitals daily and her blood pressure recently has been going up to the 130s to 140s at times. She has not been as short of breath as before and in fact she pushed her caregiver , who also uses oxygen on a wheelchair coming into the clinic today. She denies any anginal chest pain. Her lower extremity edema has significantly improved. She tells me that she walks as a method of exercise which hashelped her lose the weight. She was admitted in November of the hospital with hypercapnic respiratory failure with pCO2 levels of100 mmHg required BiPAP support with the improvement in her CO2 levels. She did not require IV diuresis. She underwent EGD for anemia evaluation as an outpatient Current medical therapy for heart failure includes torsemide 30 mg daily, Toprol-XL 25 mg daily andempagliflozin 10 mg daily. She is no longer taking spironolactone. I reviewed images of the surface echocardiogram from November 2024, the LV ejection fraction is preserved at 55-60%, the LV wall thickness is normal. There is closer to moderate TR and minimal MR, PA pressures are mildly elevated. Cardiac Testing Reviewed: TTE 2019: LVEF 40-45%. Cardiac catheterization 2020: Severe ostial left main disease, multivessel disease, LVEDP 21 mmHg TTE 2021: LVEF 55-60%, moderate TR, RVSP 42 mmHg TTE February 2023: LVEF 55-60%, moderate TR, RVSP 40-45 mmHg, LVIDd 4.8 cm TTE 12/21/2024: LVEF 55-60%, biatrial enlargement, trace AI, trace to mild MR, hsgr-yd-mctbeees TR,RVSP 44 mmHg PFT 07/01/2023: FEV 1 1.69 FEV1/FVC 71% DLCO 68% Social history: continued Current tobacco abuse, no alcohol REVIEW OF SYSTEMS Review of Systems Constitutional: Negative for decreased appetite, malaise/fatigue, weight gain and weight loss. Cardiovascular: Positive for leg swelling. Negative for chest pain, palpitations and syncope. Respiratory: Positive for shortness of breath. Negative for cough and wheezing. Hematologic/Lymphatic: Does not bruise/bleed easily. Musculoskeletal: Negative for joint pain, joint swelling, muscle cramps and muscle weakness. Gastrointestinal: Positive for bloating. Negative for abdominal pain, heartburn, nausea and vomiting. Genitourinary: Negative for frequency. Neurological: Positive for light-headedness. Negative for dizziness, headaches and loss of balance. Psychiatric/Behavioral: The patient does not have insomnia and is not nervous/anxious. CURRENT MEDICATIONS: Her medications were reviewed and [...] mcg/actuation inhaler ARIPiprazole (ABILIFY) 15 mg tablet Take 1 tablet (15 mg total) by mouth nightly. atorvastatin (LIPITOR) 80 mg tablet Take 1 tablet (80 mg total) by mouth in the morning. 90 tablet 3 pzgtibljpm-qseecfmg-vcmyxrbvld (BREZTRI AEROSPHERE) 160-9-4.8 mcg/actuation HFA aerosol inhaler Inhale 2 puffs in the morning and 2 puffs before bedtime. 10.7 g 10 cholecalciferol, vitamin D3, 5,000 units tablet Take 2 tablets (10,000 Units total) by mouth in themorning. clonazePAM (KlonoPIN) 0.5 mg tablet Take 1 tablet (0.5 mg total) by mouth in the morning and 1 tablet (0.5 mg total) before bedtime. cyanocobalamin 1000 MCG tablet Take 1 tablet (1,000 mcg total) by mouth in the morning. diclofenac-miSOPROStol (ARTHROTEC 50) 50-200 mg-mcg EC tablet Take 1 tablet by mouth in the morningand 1 tablet before bedtime. 60 tablet 2 wcerll-zegzjstxs-qij,al-simeth (FIRST-MOUTHWASH BLM) 47-152-021-40 mg/30mL mouthwash Take 5 mL by mouth 4 (four) times a day as needed for mucositis or mouth/gum irritation. 119 mL 1 empagliflozin (JARDIANCE) 10 mg tablet tablet Take 1 tablet (10 mg total) by mouth in the morning. TAKE 1 TABLET (10 MG TOTAL) BY MOUTH IN THE MORNING. 90 tablet 1 ezetimibe (ZETIA) 10 mg tablet TAKE 1 TABLET (10 MG TOTAL) BY MOUTH IN THE MORNING 90 tablet 1 hydrOXYzine (ATARAX) 25 mg tablet Take 1 tablet (25 mg total) by mouth 2 (two) times a day as needed for anxiety. lamoTRIgine (LaMICtal) 150 mg tablet Take 1 tablet (150 mg total) by mouth in the morning. metoprolol succinate XL (TOPROL XL) 25 mg 24 hr tablet Take 1 tablet (25 mg total) by mouth nightly. 30 tablet 11 oxygen Inhale 2 L/min continuously. pantoprazole (PROTONIX) 40 mg EC tablet Take 1 tablet (40 mg total) by mouth every morning before breakfast. 90 tablet 0 TRINTELLIX 10 mg tablet Take 1 tablet (10 mg total) by mouth in the morning. doxepin (SINEquan) 75 mg capsule (Patient not taking: Reported on 02/06/2025) guaiFENesin (MUCINEX) 600 mg tablet extended release 12hr Take 1 tablet (600 mg total) by mouth every 12 (twelve) hours. (Patient not taking: Reported on 02/06/2025) 14 tablet 0 pregabalin (LYRICA) 100 mg capsule Take 1 capsule (100 mg total) by mouth before bedtime. (Patient not taking: Reported on 02/06/2025) propranoloL (INDERAL) 40 mg tablet Take 1 tablet (40 mg total) by mouth in the morning and at bedtime. TAKE 1 TABLET (40 MG TOTAL) BY MOUTH IN THE MORNING AND BEFORE BEDTIME (Patient not taking: Reported on 02/06/2025) spironolactone (ALDACTONE) 25 mg tablet Take 1 tablet (25 mg total) by mouth in the morning. (Patient not taking: Reported on 02/06/2025) 90 tablet 0 No current facility-administered medications for this visit. Facility-Administered Medications Ordered in Other Visits Medication Dose Route Frequency Provider Last Rate Last Admin sodium chloride 0.9 % flush 3 mL 3 mL intravenous PRN Michael Steiner, ALLERGIES Allergies Allergen Reactions Penicillins Anaphylaxis Other Reaction(s): Swelling of Lip/Tongue/Throat Fentanyl Other (See Comments) Terrible dreams Morphine Other (See Comments) I hallucinate This is not a true allergy Ms. Jaramillos past medical, social and family history were reviewed in the electronic medical record and have noted no changes. OBJECTIVE Objective VITAL SIGNS BP 100/80 Pulse 96 Ht 175.3 cm (5' 9.02 ) Wt 108 kg (238 lb 1.6 oz) SpO2 97% BMI 35.14 kg/m?? Last 3 Weight Readings 02/06/25 1210 Weight: 108 kg (238 lb 1.6 oz) Body mass index is 35.14 kg/m??. No data recorded Supplemental O2: LAST 3 RECORDED WEIGHTS Last 3 Weight Readings 02/06/25 1210 Weight: 108 kg (238 lb 1.6 oz) Body mass index is 35.14 kg/m??. PHYSICAL EXAM General appearance: Alert and oriented, in no acute distress Head: Normocephalic, without obvious abnormality, atraumatic Eyes: Conjunctivae/corneas clear, no scleral icterus Endocrine: No visible thyromegaly Neck: no adenopathy, no carotid bruit, and thyroid: not enlarged Lungs:Clear to auscultation bilaterally Heart: Brisk carotid upstrokes bilaterally without bruits. Estimated CVP is 9-10 cmH2O. Negative HJR. Regular rhythm with a normal S1 and S2. No S3, S4 or murmurs. Warm and well-perfused. Brisk capillary refill. Abdomen: Bowel sounds are present. The abdomen is soft, not tender or distended. No hepatomegaly. Extremities: edema trace bilateral pitting edema with chronic stasis changes Skin: Skin color, turgor normal, no rashes Neurologic: Alert and normally oriented. No gross sensory or motor deficitis. LAB DATA: Ms. Recinos's most recent labs available in the medical record were reviewed today. Lab Results Component Value Date WBC 9.1 12/05/2024 WBC 11 (H) 04/14/2023 Hemoglobin 8.2 (L) 12/05/2024 HEMOGLOBIN A1C 6.3 (H) 10/27/2024 Platelet Count 238 12/05/2024 Lab Results Component Value Date SODIUM 142 12/28/2024 POTASSIUM 4.2 12/28/2024 Chloride 105 07/07/2024 CHLORIDE 102 12/28/2024 HCO3, Venous 37.4 (H) 12/06/2024 BLOOD UREA NITROGEN 16 12/28/2024 Creatinine 1.14 (H) 07/07/2024 CREATININE 1.27 (H) 12/28/2024 GLUCOSE 91 12/28/2024 Urine glucose JYOTI 250 (A) 12/17/2023 Glucose, Ur 250 (A) 04/14/2023 Magnesium 2.2 12/17/2023 Lab Results Component Value Date BNP 259 (H) 12/04/2024 BNP 291 (H) 12/17/2023 Troponin I 0.01 07/25/2023 1 Hour Trop I, High Sensitivity 4 12/17/2023 Troponin I, High Sensitivity 4 12/17/2023 TROPONIN I, HIGH SENSITIVITY 17 (H) 12/04/2024 Lab Results Component Value Date Inr 1.3 (H) 09/18/2023 ASSESSMENT HEART FAILURE SYNOPSIS: Type of Heart Failure: diastolic Last EF: 55-60% QRS Interval: 0.10 NYHA Class: II-III 6-Minute Walk Test: N/A ACC/AHA Stage: C Cardiac Device: None Prior HF Hospitalizations: none Estimated Dry Weight: TBD Today's Visit Weight: Weight: 108 kg (238 lb 1.6 oz) 239 lbs at home Chronic diastolic heart failure. NYHA class improved to 2-3 Coronary artery disease s/p CABG x4 in 2020 , THOMPSON-LAD, SVG-PDA, SVG-om, SVG-diagonal Tricuspid regurgitation, moderate Pulmonary hypertension, multifactorial WHO groups 2, 3, and ?4 Chronic hypoxic respiratory failure/COPD, on oxygen; follows with pulmonology at [facility] History of PE Iron-deficiency anemia, underwent workup Chronic kidney disease, stage III Obstructive sleep apnea, on BiPAP Bipolar disorder, on lithium Chronic tobacco use Obesity, with a BMI of 36 PLAN Overall, she has had improvement in her symptoms and appears mildly hypervolemic on exam today. Shehas a good understanding of her issues and how to deal with them. Increase torsemide to 40 mg daily Resume spironolactone 25 g daily Start valsartan 40 mg daily to get her blood pressure under goal. Continue Jardiance. Guideline-Directed Medical Therapy Beta Michelle: Toprol-XL 25 mg daily ACEi / ARB / ARNi: Valsartan 40 mg daily started MRA: Spironolactone 25 mg daily reasons SGLT-2i: Jardiance 10 mg daily Diuretics: Torsemide increased to 40 mg mg daily Plan New Orders Orders Placed This Encounter Procedures Basic Metabolic Panel Orders Placed or Reconciled This Encounter Medications torsemide (DEMADEX) 20 mg tablet Sig: Take 2 tablets (40 mg total) by mouth daily. Dispense: 60 tablet Refill: 11 spironolactone (ALDACTONE) 25 mg tablet Sig: Take 1 tablet (25 mg total) by mouth in the morning. Dispense: 90 tablet Refill: 3 valsartan (DIOVAN) 40 mg tablet Sig: Take 1 tablet (40 mg total) by mouth in the morning. Dispense: 30 tablet Refill: 11 Medications Discontinued During This Encounter Medication Reason torsemide (DEMADEX) 10 mg tablet spironolactone (ALDACTONE) 25 mg tablet Reorder We reviewed education for heart failure self-care including daily weights, dietary sodium and fluidrestriction, and medication compliance. Ms. Recinos was asked to contact our office with any weight gain or loss that exceeds more than 2 lb overnight or more than 4 lb over one week. We will arrange for a follow-up visit in 6 months. Ms. Recinos is aware that we can be contacted priorto the next scheduled appointment should the need arise. I spent 30 minutes face to face with the patient today and more than 50% of my time was dedicated to counseling (heart failure education for self-care including medication compliance, daily weights, sodium and fluid diet restriction, frequent exercise, cardiovascular risk factor modification) and co ordination of care. 02/06/2025 Risa Summers M.D., [facility], [facility] Failure [facility] [address] [facility] [address] [place] [address] Fax This note was completed using a voice eggs inspector system. Every effort was made to ensure accuracy. However, inadvertent computerized eggs inspector errors may be present. * Jazmín Acevedo RN - 02/06/2025 12:00 PM EDT Instructed patient on daily weights, fluid restriction, and low sodium diet. Advised of s/s requiring ER treatment or to call the office. Heart failure education provided: Yes. Patient verbalized understanding. documented in this encounter Plan of Treatment Upcoming Encounters Date Type Department Care Team (Late st Contact Info) Description 03/15/2025 1:30 PM EST Office Visit [facility] - Family Medicine [address] [place] [address] Michael Steiner DO [address] [place] [address] Scheduled Orders Name Type Priority Associated Diagnoses Orde r Schedule Basic Metabolic Panel Lab Routine Chronic diastolic heart failure (CMS-HCC) Pulmonary hypertension ([facility]-HCC) Nonrheumatic tricuspid valve regurgitation 1 Occurrences starting 02/06/2025 until 02/06/2026 documented as of this encounter Goals Goal Patient Goal Type Associated Problems Recent Progress Patient-Stated? Author home General Yes Jimena Snider LSW Note: Evaluation of progress towards goal: feeling better documented as of this encounter Visit Diagnoses Diagnosis Chronic diastolic heart failure (CMS-HCC)- Primary Chronic diastolic heart failure Pulmonary hypertension (CMS-HCC) Other chronic pulmonary heart diseases Nonrheumatic tricuspid valve regurgitation documented in this encounter Additional Health Concerns Assessment Noted Time PHQ-9 Depression Total Score: 0 12/16/19 25 12:36 PM EDT documented as of this encounter Care Teams Machining Technician Relationship Specialty Start Date End Date Michael Steiner DO [address] [place] [address] PCP - General Internal Medicine 12/17/23 documented as of this encounter
--- OUTSIDE RECORDS SUMMARY | 2025-02-09 14:10 | XMS_ITS | Encounter Summary ---
Author Organization [facility] tem Address [id number] 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 Name Role Phone Michael Steiner DO Primary Care Provider Reason for Visit * Reason Comments Abdominal Pain Encounter Details Date Type Department Care Team (Late st Contact Info) Description 02/09/2025 2:10 PM EDT - 02/09/2025 2:15 PM EDT Emergency [facility] - Emergency [address] [place] [id number] Kunal Mims MD [address] [place] [address] Abdominal pain, unspecified abdominal location (Primary Dx) Discharge Disposition: Home Social History Tobacco Use Types Packs/Day Years Used Date Smoking Tobacco: Former Cigarettes 1 40 0 09/1981 - 09/2021 Smokeless Tobacco: Never Comments:5-6 cigerettes a da y Alcohol Use Standard Drinks/Week Comments Not Currently 0 (1 standard drink = 0.6 oz pur e alcohol) last use 15 years ago [facility] Utilities Answer Date Recorded In the [...] often do you attend chur ch or rastafari services? More than 4 times [...] Answer Date Recorded Total Score 0 12/15/2024 [employer] - Occupational Stress [...] got money to buy more. Never True 02/09/2025 Within the past 12 months th e food we bought just didn't last and we didn't have money to get more. Never True 02/09/2025 Purpose - Life Answer Date Recorded I [...] Sign Reading Time Taken Comments Blood Pressure 126/82 02/09/2025 1:04 PM EDT Pulse 85 02/09/2025 1:04 PM EDT Temperature 36.6 C (97.8 F) 02/09/2025 1:04 PM EDT Respiratory Rate 20 02/09/2025 1:04 PM EDT Oxygen Saturation 97% 02/09/2025 1:04 PM EDT Inhaled Oxygen Concentration - - Weight 107 kg (236 lb) 02/09/2025 1:04 PM EDT Height 175.3 cm (5' 9 ) 02/09/2025 1:04 PM EDT Body Mass Index 34.85 02/09/2025 1:04 PM EDT documented in this encounter Discharge Instructions * Attachments The following attachments cannot be sent through Care Everywhere. * Abdominal Pain? Adult ED (Maldivian) * Appendicitis in adults (Maldivian) documented in this encounter Medications at Time [...] tablet (15 mg total) by mouth nightly. 4 atorvastatin (LIPITOR) 80 mg tabletIndications:At herosclerosis of [place] coronary artery of [place] heart without angina pectoris,Hx of hyperlipidemia Take 1 tablet (80 mg total) by mouth in the morning. 90 tablet 3 4 budesonide-glycopyr- formoterol (BREZTRI AEROSPHERE) 160-9-4.8 mcg/actuation HFA aerosol inhalerIndications:C hronic obstructive pulmonary disease, unspecified COPD type ([facility]) Inhale 2 puffs in the morning and 2 puffs before bedtime. 10.7 g 10 4 cholecalciferol, vitamin D3, 5,000 units tablet Take 2 tablets (10,000 Units total) by mouth in the morning. clonazePAM (KlonoPIN) 0.5 mg tablet Take 1 tablet (0.5 mg total) by mouth in the morning and 1 tablet (0.5 mg total) before bedtime. 4 cyanocobalamin 1000 MCG tablet Take 1 tablet (1,000 mcg total) by mouth in the morning. diclofenac-miSOPROSt ol (ARTHROTEC 50) 50-200 mg-mcg EC tablet Take 1 tablet by mouth in the morning and 1 tablet before bedtime. 60 tablet 2 5 upnhph-jqzebswto-vli ,al-simeth (FIRST-MOUTHWASH BLM) [id number] mg/30mL mouthwashIndications :Stomatitis Take 5 mL by mouth 4 (four) times a day as needed for mucositis or mouth/gum irritation. 119 mL 1 5 doxepin (SINEquan) 75 mg capsule empagliflozin (JARDIANCE) 10 mg tablet tabletIndications:Ch ronic heart failure with preserved ejection fraction (CMS-HCC),Atheroscle rosis of [place] coronary artery of [place] heart without angina pectoris Take 1 tablet (10 mg total) by mouth in the morning. TAKE 1 TABLET (10 MG TOTAL) BY MOUTH IN THE MORNING. 90 tablet 1 5 ezetimibe (ZETIA) 10 mg tabletIndications:At herosclerotic heart disease of [place] coronary artery with other forms of angina pectoris TAKE 1 TABLET (10 MG TOTAL) BY MOUTH IN THE MORNING 90 tablet 1 5 guaiFENesin (MUCINEX) 600 [...] ronic heart failure with preserved ejection fraction ([facility]),Pulmonary hypertension ([facility]),Nonrheumat ic tricuspid valve regurgitation,Essent ial hypertension,Atheros clerosis of [place] coronary artery of [place] heart without angina pectoris,History of four vessel coronary artery bypass graft,NSTEMI (non-ST elevated myocardial infarction) ([facility]) Take 1 tablet (25 mg total) by mouth nightly. 30 tablet 11 5 oxygen Inhale 2 L/min continuously. pantoprazole (PROTONIX) 40 mg EC tabletIndications:Ga stro-esophageal reflux disease without esophagitis Take 1 tablet (40 mg total) by mouth every morning before breakfast. 90 tablet 5 pregabalin (LYRICA) 100 mg capsuleIndications:P eripheral polyneuropathy Take 1 capsule (100 mg total) by mouth before bedtime. 5 propranoloL (INDERAL) 40 mg tablet Take 1 tablet (40 mg total) by mouth in the morning and at bedtime. TAKE 1 TABLET (40 MG TOTAL) BY MOUTH IN THE MORNING AND BEFORE BEDTIME 5 spironolactone (ALDACTONE) 25 mg tabletIndications:Ch ronic diastolic heart failure (CMS-HCC) Take 1 tablet (25 mg total) by mouth in the morning. 90 tablet 3 5 torsemide (DEMADEX) 20 mg tabletIndications:Ch ronic diastolic heart failure (CMS-HCC) Take 2 tablets (40 mg total) by mouth daily. 60 tablet 11 5 TRINTELLIX 10 mg tablet Take 1 tablet (10 mg total) by mouth in the morning. 5 valsartan (DIOVAN) 40 mg tabletIndications:Ch ronic diastolic heart failure (CMS-HCC),Pulmonary hypertension (CMS-HCC) Take 1 tablet (40 mg total) by mouth in the morning. 30 tablet 11 5 documented as of this encounter ED Notes * Kunal Mims MD - 02/09/2025 2:18 PM EDT Images from the original note were not included. [facility] - EMERGENCY Pt Name: Monet Recinos Birthdate: 1960 Chief Complaint: Chief Complaint Patient presents with Abdominal Pain History of Present Illness: Initial evaluation performed at 2:[address] Snow Mims. Patient is a 64 y.o. female who presents to the ED for evaluation of abdominal pain. Pt states she started having right sided abdominal pain today. She described it as cramping and constant, and denied the pain radiating. She also states she is having nausea and diarrhea. 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 used: No Past Medical History: Past Medical History: Diagnosis Date Agoraphobia Angina at rest Anxiety BiPAP (biphasic positive airway pressure) dependence Bipolar disorder ([facility]) Breast injury CHF (congestive heart failure) ([facility]) Chipped tooth Chronic kidney disease COPD (chronic obstructive pulmonary disease) ([facility]) Coronary artery disease Dementia ([facility]) Depression Diarrhea frequent bouts /involuntary Dizziness Fracture, vertebral, lumbar closed ([facility]) GERD (gastroesophageal reflux disease) Headache History of coronary artery bypass graft 08/14/2020 Liver disease Low back pain Lump or mass in breast Memory loss Myocardial infarction ([facility]) Apr 2009, swith stent placement Obesity BONY treated with BiPAP 07/31/2022 Osteoarthritis Panic disorder PONV (postoperative nausea and vomiting) Psoriasis PTSD (post-traumatic stress disorder) Pulmonary emboli (CMS-HCC) Rib fracture 09/2023 lt Rotator cuff tear L Shortness of breath Sleep apnea Visual impairment glasses Past Surgical History: Past Surgical History: Procedure Laterality Date BREAST BIOPSY BREAST CYST EXCISION Cardiac catheterization N/A 01/09/2020 Performed by Yefri Khan MD at [facility] Cardiac catheterization-LV Cors N/A 08/06/2020 Performed by Hazel Painting MD at [facility] SECTION CHOLECYSTECTOMY COLONOSCOPY N/A 04/03/2017 Performed by Jose Beaver MD at [facility] Coronary angiogram and left ventricular gram/pressure N/A 01/09/2020 Performed by Yefri Khan MD at [facility] CORONARY ANGIOPLASTY WITH STENT PLACEMENT CORONARY ARTERY BYPASS GRAFT X4/ THOMPSON/ SVG X3 / RIGHT UPPER LEG OPEN VEIN HARVEST/ LEFT UPPER LEG OPEN VEING HARVEST /GINETTE N/A 08/13/2020 Performed by Leroy Meng MD at [facility] Drug eluting stent left anterior descending N/A 01/09/2020 Performed by Yefri Khan MD at [facility] ESOPHAGOGASTRODUODENOSCOPY DIAGNOSTIC N/A 01/04/2025 Performed by Michael Steiner DO at [facility] EXCISION SEROMA LOWER EXTREMITY Left 10/07/2022 Performed by Victor Hugo Vincent DO at [facility] Intravascular ultrasound coronary N/A 08/06/2020 Performed by Hazel Painting MD at [facility] Intravascular ultrasound coronary N/A 01/09/2020 Performed by Yefri Khan MD at [facility]ATH [facility] NOTCHARGED/Thrombolysis arterial initial treatment N/A 01/09/2020 Performed by Yefri Khan MD at [facility] TONSILLECTOMY Family History: Family [...] date: 09/1981 Quit date: 09/2021 Years since quittin.3 Smokeless tobacco: Never Tobacco comments: 5-6 cigerettes a day Vaping Use Vaping status: Former Substance and Sexual Activity Alcohol use: Not Currently Comment: last use 15 years ago Drug use: Not Currently Types: Cocaine, Marijuana Sexual activity: Not Currently Other Topics Concern Caffeine Use Yes Comment: daily Social Drivers of Health Financial Resource Strain: Low Risk (12/04/2024) Overall Financial Resource Strain (CARDIA) Difficulty of Paying Living Expenses: Not very hard Food Insecurity: No Food Insecurity (02/09/2025) Hunger Screening Food Insecurity - Worry: Never True Food Insecurity - Inability: Never True Transportation Needs: No Transportation Needs (12/04/2024) PRAPARE - Transportation Lack of Transportation (Medical): No Lack of Transportation (Non-Medical): No Physical Activity: Inactive (07/25/2023) Exercise Vital Sign Days of Exercise per Week: 0 days Minutes of Exercise per Session: 0 min Stress: No Stress Concern Present (07/25/2023) [employer] - Occupational Stress Questionnaire Feeling of Stress : Only a little Recent Concern: Stress - Stress Concern Present (07/25/2023) [employer] - Occupational Stress Questionnaire Feeling of Stress : Very much Social Connections: Moderately Isolated (07/25/2023) Social Connection and Isolation Panel Frequency of Communication with Friends and Family: Three times a week Frequency of Social Gatherings with Friends and Family: Three times a week Attends [employer] Services: More than 4 times per year [...] of Systems Physical Exam: ED Triage Vitals [02/09/25 1304] Temp Heart Rate Resp BP SpO2 36.6 ??C (97.8 ??F) 85 20 126/82 97 % Temp Source Heart Rate Source Patient Position BP Location FiO2 (%) Temporal Pulse Ox Sitting Right arm -- Vitals: 02/09/25 1304 BP: 126/82 Temp: 36.6 ??C (97.8 ??F) TempSrc: Temporal Pulse: 85 Resp: 20 SpO2: 97% Height: 175.3 cm (5' 9 ) Weight: 107 kg (236 lb) Physical Exam Vitals reviewed. HENT: Head: Normocephalic and atraumatic. Eyes: Conjunctiva/sclera: Conjunctivae normal. Cardiovascular: Rate and Rhythm: Normal rate. Pulmonary: Effort: Pulmonary effort is normal. Breath sounds: Normal breath sounds. Abdominal: General: There is no distension. Palpations: Abdomen is soft. Tenderness: There is abdominal tenderness in the right upper quadrant and right lower quadrant. Musculoskeletal: General: Normal range of motion. Cervical back: Normal range of motion and neck supple. Skin: General: Skin is warm and dry. Neurological: General: No focal deficit present. Mental Status: She is alert and oriented to person, place, and time. GCS: GCS eye subscore is 4. GCS verbal subscore is 5. GCS motor subscore is 6. Procedure: Procedures Re-evaluation: Re-Evaluation Medical Decision Making Report came back as possible early appendicitis. I updated the patient and family members and I re-evaluated the patient. Her symptoms have pretty much resolved. She states she has no pain anymore there is the mildest of right lower quadrant tenderness but no Rovsing's obturator or psoas sign. We discussed the CT results now this could be early appendicitis. I discussed disposition options including 1. Admission for serial exams in his surgical consulted 2. Discharged home and return in 24 hours for recheck. The patient would like to go home and return for recheck which I think is appropriatebased on her history physical exam results of testing. Amount and/or Complexity of Data Reviewed Labs: ordered. Radiology: ordered. Risk Prescription drug management. ED Course: Clinical Impressions as of 02/09/25 1537 Abdominal pain, unspecified abdominal location . ED Disposition None . Please note that portions of this note were completed with a voice recognition program. Efforts were made to edit the dictations but occasionally words are mis-transcribed. Lindsay Strong 02/09/25 1420 Kunal Mims MD 02/09/25 [id number] * Cara Cui RN - 02/09/2025 1:02 PM EDT PT presents to the ED for evaluation of abd pain. Pain began this morning and has been progressively worsening. PT reports pain is from the R rib to the R groin. No injury/trauma. PT is on 4 L reports she is suppose to be on 2 L. documented in this encounter Plan of Treatment Upcoming Encounters Date Type Department Care Team (Late st Contact Info) Description 03/15/2025 1:30 PM EST Office Visit [facility] - Family Medicine [address] [place] [phone] Michael Steiner, [address] [place] [address] documented as of this encounter Goals Goal Patient Goal Type Associated Problems Recent Progress Patient-Stated? Author home General Yes Jimena Snider LSW Note: Evaluation of progress towards goal: feeling better documented as of this encounter Procedures Procedure Name Priority Date/Time Associated Diagnosis Comments CT ABDOMEN AND PELVIS W CONT STAT 02/09/2025 3:32 PM EDT EXTRA TUBES BLUE TOP Routine 02/09/2025 2:24 PM EDT EXTRA TUBES Routine 02/09/2025 2:24 PM EDT CBC WITH AUTO DIFFERENTIAL STAT 02/09/2025 2:24 PM EDT LIPASE STAT 02/09/2025 2:24 PM EDT LIVER PANEL STAT 02/09/2025 2:24 PM EDT BASIC METABOLIC PANEL STAT 02/09/2025 2:24 PM EDT documented in this encounter Results * CT abdomen and pelvis with contrast (02/09/2025 3:32 PM EDT) Anatomical Region Laterality Modality Body, Abdomen, Body Covera N/A Compu migdalia Tomography 02/09/2025 3:36 PM EDT Narrative 02/09/2025 3:45 PM EDT EXAM: ABDOMEN AND PELVIS CT WITH CONTRAST CLINICAL INFORMATION: ruq/prl pain. TECHNIQUE: CT abdomen and pelvis was performed utilizing 5 mm axial reconstructions following the uneventful administration of nonionic intravenous contrast. Coronal and sagittal reformatted images as well as delayed excretory phase images were obtained and reviewed. Automated exposure control was utilized. COMPARISON: CT dated 04/28/2023 FINDINGS: The limited visualized lung bases demonstrate atelectasis and/or scarring in the right lower lobe. There is a small to moderate hiatal hernia. The liver is unremarkable. The gallbladder is surgically absent. The spleen is normal. The pancreas is unremarkable. The right kidney is normal. The left kidney is normal. The adrenals are unremarkable. There are no dilated loops of bowel or evidence for pneumatosis or free air. The appendix is identified in the anterior abdomen. There are no associated inflammatory changes. However, there is mild dilatation of the appendix measuring up to 1 cm. Overall findings are equivocal for early/mild acute appendicitis and clinical correlation is required. There is no significant free fluid. There are calcifications throughout a normal diameter abdominal aorta and iliac arteries. IMPRESSION: 1. Anterior appendix. There are no associated inflammatory changes. The appendix is however dilated measuring up to 1 cm. Overall findings are equivocal for the possibility of early/mild acute appendicitis, and clinical correlation confirmation is recommended. There is no evidence for complications of possible early/mild acute appendicitis. 2. Hiatal hernia. All CT scans at this facility use dose modulation, iterative reconstruction, and/or weight based dosing when appropriate to reduce radiation dose to as low as reasonably achievable. Finalized by Cesario Cooley MD on 02/09/2025 3:45 PM Procedure Note Cesario Cooley MD - 02/09/2025 EXAM: ABDOMEN AND PELVIS CT WITH CONTRAST CLINICAL INFORMATION: ruq/prl pain. TECHNIQUE: CT abdomen and pelvis was performed utilizing 5 mm axialreconstructions following the uneventful administration of nonionicintravenous contrast. Coronal and sagittal reformatted images as well asdelayed excretory phase images were obtained and reviewed. Automatedexposure control was utilized. COMPARISON: CT dated 04/28/2023 FINDINGS: The limited visualized lung bases demonstrate atelectasis and/or scarringin the right lower lobe. There is a small to moderate hiatal hernia. The liver is unremarkable. The gallbladder is surgically absent. Thespleen is normal. The pancreas is unremarkable. The right kidney isnormal. The left kidney is normal. The adrenals are unremarkable. Thereare no dilated loops of bowel or evidence for pneumatosis or free air. Theappendix is identified in the anterior abdomen. There are no associated inflammatorychanges. However, there is mild dilatation of the appendix measuring up to1 cm. Overall findings are equivocal for early/mild acute appendicitis andclinical correlation is required. There is no significant free fluid.There are calcifications throughout a normal diameter abdominal aorta and iliacarteries. IMPRESSION: 1. Anterior appendix. There are no associated inflammatory changes. Theappendix is however dilated measuring up to 1 cm. Overall findings areequivocal for the possibility of early/mild acute appendicitis, andclinical correlation confirmation is recommended. There is no evidence forcomplications of possible early/mild acute appendicitis. 2. Hiatal hernia. All CT scans at this facility use dose modulation, iterativereconstruction, and/or weight based dosing when appropriate to reduceradiation dose to as low as reasonably achievable. Finalized by Cesario Cooley MD on 02/09/2025 3:45 PM us Kunal Mims MD IMG CT ORDERABLES Final Resul t * Light Blue Top (02/09/2025 2:24 PM EDT) Extra Tube Auto Resulted 02/09/2025 4:02 PM EDT [facility] Blood Venous blood / Unknown 02/09/2025 2:24 PM EDT 02/09/2025 2:35 PM EDT us Kunal Mims MD LAB BLOOD ORDERABLES Final Re sult Performing Organization Address City/[facility]/ZIP Co de Phone Number [facility] [address] [place] [address], [place] * (ABNORMAL) Lipase (02/09/2025 2:24 PM EDT) LIPASE 41(H) 17 - 40 U/L 02/09/2025 2:53 PM EDT [facility] Blood Venous blood / Unknown Venipuncture / Unknown 02/09/2025 2:24 PM EDT 02/09/2025 2:35 PM EDT us Knual Mims MD LAB BLOOD ORDERABLES Final Re sult Performing Organization Address City/[facility] Co de Phone Number [facility] [address] [place] [address], [place] * Liver panel (02/09/2025 2:24 PM EDT) TOTAL PROTEIN 7.9 6.0 - 8.0 g/dL 02/09/2025 2:59 PM EDT [facility] ALBUMIN 4.2 3.2 - 5.3 g/dL 02/09/2025 2:59 PM EDT [facility] BILIRUBIN,TOTAL 0.7 0.3 - 1.2 mg/dL 02/09/2025 2:59 PM EDT [facility] ALKALINE PHOSPHATASE 89 39 - 130 U/L 02/09/2025 2:59 PM EDT [facility] AST 20 <=41 U/L 02/09/2025 2:59 PM EDT [facility] ALT 17 <=31 U/L 02/09/2025 2:59 PM EDT [facility] BILIRUBIN,DIRECT 0.1 <=0.4 mg/dL 02/09/2025 2:59 PM EDT [facility] Blood Venous blood / Unknown Venipuncture / Unknown 02/09/2025 2:24 PM EDT 02/09/2025 2:35 PM EDT us Kunal Mims MD LAB BLOOD ORDERABLES Final Re sult [facility] [address] [place] [address], [place] * (ABNORMAL) Basic Metabolic Panel (02/09/2025 2:24 PM EDT) SODIUM 138 134 - 146 mmol/L 02/09/2025 2:59 PM EDT [facility] POTASSIUM 3.4(L) 3.5 - 5.0 mmol/L 02/09/2025 2:59 PM EDT [facility] CHLORIDE 97(L) 98 - 109 mmol/L 02/09/2025 2:59 PM EDT [facility] CARBON DIOXIDE 29 22 - 32 mmol/L 02/09/2025 2:59 PM EDT [facility] ANION GAP 12 5 - 15 mmol/L 02/09/2025 2:59 PM EDT [facility] BLOOD UREA NITROGEN 13 5 - 27 mg/dL 02/09/2025 2:59 PM EDT [facility] CREATININE 1.16(H) 0.40 - 1.00 mg/dL 02/09/2025 2:59 PM EDT [facility] Comment:METHOD TRACEABLE TO IDMS STANDARD GLUCOSE 127(H) 65 - 99 mg/dL 02/09/2025 2:59 PM EDT [facility] CALCIUM 9.2 8.5 - 10.5 mg/dL 02/09/2025 2:59 PM EDT [facility] EGFR Non-Race Dependent 53(L) >=60 ml/min/1.7 3sq.m 02/09/2025 2:59 PM EDT [facility] Comment: eGFR not reported due to non-numeric value for Creatinine. Reported eGFR is based on the CKD-EPI 2020 equation that does not use a race coefficient. Blood Venous blood / Unknown Venipuncture / Unknown 02/09/2025 2:24 PM EDT 02/09/2025 2:35 PM EDT us Kunal Mims MD LAB BLOOD ORDERABLES Final Re sult [facility] [address] [place] [address], [place] * (ABNORMAL) CBC auto differential (02/09/2025 2:24 PM EDT) WBC 9.6 4 - 11 x10E9/L 02/09/2025 3:34 PM EDT [facility] RBC Count 5.30(H) 3.8 - 5.2 X10E12/L 02/09/2025 3:34 PM EDT [facility] Hemoglobin 10.6(L) 11.7 - 15.5 g/dL 02/09/2025 3:34 PM EDT [facility] Hematocrit 34.6(L) 35 - 47 % 02/09/2025 3:34 PM EDT [facility] MCV 65(L) 80 - 100 fL 02/09/2025 3:34 PM EDT [facility] MCH 20.0(L) 27 - 34 pg 02/09/2025 3:34 PM EDT [facility] MCHC 30.6(L) 32 - 36 g/dL 02/09/2025 3:34 PM EDT [facility] RDW 22.2(H) 11.5 - 15 % 02/09/2025 3:34 PM EDT [facility] Platelet Count 360 150 - 450 X10E9/L 02/09/2025 3:34 PM EDT [facility] MPV 8.4 7 - 12 fL 02/09/2025 3:34 PM EDT [facility] Neutrophils % 69.3 % 02/09/2025 3:34 PM EDT [facility] Comment:This is an appended report. These results have been appended to a previously preliminary verified report. Lymphocytes % 23.0 % 02/09/2025 3:34 PM EDT [facility] Comment:This is an appended report. These results have been appended to a previously preliminary verified report. Monocytes % 4.1 % 02/09/2025 3:34 PM EDT [facility] Comment:This is an appended report. These results have been appended to a previously preliminary verified report. Eosinophils % 1.7 % 02/09/2025 3:34 PM EDT [facility] Comment:This is an appended report. These results have been appended to a previously preliminary verified report. Basophils % 1.9 % 02/09/2025 3:34 PM EDT [facility] Comment:This is an appended report. These results have been appended to a previously preliminary verified report. Neutrophils Absolute (A) 6.6 1.5 - 6.6 10*3/uL 02/09/2025 3:34 PM EDT [facility] Comment:This is an appended report. These results have been appended to a previously preliminary verified report. Lymphocytes Absolute 2.2 1.0 - 3.5 10*3/uL 02/09/2025 3:34 PM EDT [facility] Comment:This is an appended report. These results have been appended to a previously preliminary verified report. Monocytes Absolute 0.4 0.0 - 0.9 10*3/uL 02/09/2025 3:34 PM EDT [facility] Comment:This is an appended report. These results have been appended to a previously preliminary verified report. Eosinophils Absolute 0.2 0.0 - 0.4 10*3/uL 02/09/2025 3:34 PM EDT [facility] Comment:This is an appended report. These results have been appended to a previously preliminary verified report. Basophils Absolute 0.2 0.0 - 0.2 10*3/uL 02/09/2025 3:34 PM EDT [facility] Comment:This is an appended report. These results have been appended to a previously preliminary verified report. Anisocytosis 2+ 02/09/2025 3:34 PM EDT [facility] Comment:This is an appended report. These results have been appended to a previously preliminary verified report. Elliptocytes 1+ 02/09/2025 3:34 PM EDT [facility] Comment:This is an appended report. These results have been appended to a previously preliminary verified report. Differential Type AUTOMATED DIFFERENTIAL 02/09/2025 3:34 PM EDT [facility] Comment:This is an appended report. These results have been appended to a previously preliminary verified report. Blood Venous blood / Unknown Venipuncture / Unknown 02/09/2025 2:24 PM EDT 02/09/2025 2:35 PM EDT us Kunal Mims MD LAB BLOOD ORDERABLES Final Re sult [facility] [address] [place] [address], documented in this encounter Visit Diagnoses Diagnosis Abdominal pain, unspecified abdominal location- Primary documented in this encounter Administered Medications Inactive Administered Medications - up to 3 most recent administrations Medication Order MAR Action Action Date Dose Rate Site HYDROmorphone (PF) (DILAUDID) injection 1 mg 1 mg, intravenous, Once, [place] 02/09/25 at 1420, For 1 dose, If IV push, administer over over 2 to 3 minutes. Look-alike/sound-alike medication - verify indication for use. Given 02/09/2025 2:40 PM EDT 1 mg iohexoL (OMNIPAQUE) 300 mg iodine/mL 100 mL 100 mL, intravenous, Once in imaging, contrast, Starting on [place] 02/09/25 at 1506, For 1 dose, VESICANT (RED) Given 02/09/2025 3:19 PM EDT 100 mL ketorolac (TORADOL) injection 15 mg 15 mg, intravenous, Once, [place] 02/09/25 at 1420, For 1 dose, Look-alike/sound-alike medication - verify indication for use. Duration of therapy is not to exceed 5 days. Maximum recommended dose + 120mg/24 hours. Given 02/09/2025 2:40 PM EDT 15 mg ondansetron (PF) (ZOFRAN) injection 4 mg 4 mg, intravenous, Once, [place] 02/09/25 at 1420, For 1 dose, Intravenous administration preferred to be given over 2-5 minutes. Given 02/09/2025 2:40 PM EDT 4 mg sodium chloride 0.9 % flush 10 mL 10 mL, intravenous, As needed, line care, Starting on [place] 02/09/25 at 1506 Given 02/09/2025 3:20 PM EDT 10 mL sodium chloride 0.9 % flush 3 mL 3 mL, intravenous, As needed, line care, before and after each intermittent use, Starting on [place] 02/09/25 at 1418 sodium chloride 0.9 % radiology injection 80 mL, intravenous, Once in imaging, pre/post contrast, Starting on [place] 02/09/25 at 1506, For 1 dose Given 02/09/2025 3:19 PM EDT 80 mL documented in this encounter Active and Recently Administered Medications Times are shown in EDT. Scheduled Medication Order 02/07/2025 02/08/2025 02/09/2025 HYDROmorphone (PF) (DILAUDID) injection 1 mg (COMPLETED) 1 mg, intravenous, Once, On [place] 02/09/25 at 1420, For 1 dose, If IV push, administer over over 2 to 3 minutes. Look-alike/sound-alike medication - verify indication for use. 1440 (Given - Provid er: Sirena Winkler RN) ketorolac (TORADOL) injection 15 mg (COMPLETED) 15 mg, intravenous, Once, On [place] 02/09/25 at 1420, For 1 dose, Look-alike/sound-alike medication - verify indication for use. Duration of therapy is not to exceed 5 days. Maximum recommended dose + 120mg/24 hours. 1440 (Given - Provid er: Sirena Winkler RN) ondansetron (PF) (ZOFRAN) injection 4 mg (COMPLETED) 4 mg, intravenous, Once, On [place] 02/09/25 at 1420, For 1 dose, Intravenous administration preferred to be given over 2-5 minutes. 1440 (Given - Provid er: Sirena Boehler, RN) PRN Medication Order 02/07/2025 02/08/2025 02/09/2025 iohexoL (OMNIPAQUE) 300 mg iodine/mL 100 mL (COMPLETED) 100 mL, intravenous, Once in imaging, contrast, Starting on [place] 02/09/25 at 1506, For 1 dose, VESICANT (RED) 1519 (Given - Provid er: [facility]) sodium chloride 0.9 % flush 10 mL 10 mL, intravenous, As needed, line care, Starting on [place] 02/09/25 at 1506 1520 (Given - Provid er: [facility]) sodium chloride 0.9 % flush 3 mL 3 mL, intravenous, As needed, line care, before and after each intermittent use, Starting on [place] 02/09/25 at 1418 sodium chloride 0.9 % radiology injection (COMPLETED) 80 mL, intravenous, Once in imaging, pre/post contrast, Starting on [place] 02/09/25 at 1506, For 1 dose 1519 (Given - Provid er: [facility]) documented in this encounter Additional Health Concerns Assessment Noted Time PHQ-9 Depression Total Score: 0 12/16/19 25 12:36 PM EDT documented as of this encounter Care Teams Concrete [employer] Relationship Specialty Start Date End Date Michael Steiner DO [facility] [address] [place] [id number] PCP - General Internal Medicine 12/17/23 documented as of this encounter
[2025-02-13 11:09] VITALS: BP 118/75; PULSE 90; TEMP 36.6; O2SAT 98
--- OUTSIDE RECORDS SUMMARY | 2025-02-13 11:10 | XMS_ITS | Encounter Summary ---
Author Organization [employer] tem Address [id number] [address] [place] [address] Care Team Providers Care Chinese Language Professor Name Role Phone Michael Steiner DO Primary Care Provider [phone] Encounter Details Date Type Department Care Team (Latest Contact Info) Description 02/13/2025 Travel Social History Tobacco Use Types Packs/Day Years Used Date Smoking Tobacco: Former Cigarettes 1 40 0 09/1981 - 09/2021 Smokeless Tobacco: Never Comments:5-6 cigerettes a da y Alcohol Use Standard Drinks/Week Comments Not Currently 0 (1 standard drink = 0.6 oz pur e alcohol) last use 15 years ago [facility] Utilities Answer Date Recorded In [...] Answer Date Recorded Total Score 0 12/15/2024 [facility] of Occupat ional [...] Internal Medicine - Family Medicine [address] [place] [address] Michael Steiner DO [address] [place] [address] documented as of this encounter Goals Goal [...] documented as of this encounter Care Teams Chinese Language Professor Relationship Specialty Start Date End Date Michael Steiner DO [address] [place] [address] PCP - General Internal Medicine 12/17/23 documented as of this encounter
--- OUTSIDE RECORDS SUMMARY | 2025-02-13 11:10 | XMS_ITS | Encounter Summary ---
Author Organization [email or web address] s tem Address [id number] [address] [place] [address] Care Team Providers Care Hospital Orderly Name Role Phone Michael Steiner DO Primary Care Provider [phone] Encounter Details Date Type Department Care Team (Late st Contact Info) Description 02/10/2025 Telephone [facility] - Family Medicine [address] [place] [address] Megan Talley, ELIAN Social History Tobacco Use Types Packs/Day Years Used Date Smoking Tobacco: Former Cigarettes 1 40 0 09/1981 - 09/2021 Smokeless Tobacco: Never Comments:5-6 cigerettes a da y Alcohol Use Standard Drinks/Week Comments Not Currently 0 (1 standard drink = 0.6 oz pur e alcohol) last use 15 years ago [facility] Utilities Answer Date Recorded In the past 12 months has [employer], gas, oil, or water [employer] threatened to shut off services in your [...] Answer Date Recorded Total Score 0 12/15/2024 [facility] of Occupat ional Health [...] Telephone Encounter - Megan Talley CMA - 02/10/2025 11:05 AM EDT [facility] is wondering if you will follow pt for Home Health Services? They need a verbal. Thank you. * Telephone Encounter - Michael Steiner DO - 02/10/2025 11:05 AM EDT Message noted. Yes, but she skipped her appointment last week, and needs to be seen soon in the office * Telephone Encounter - Megan Talley CMA - 02/10/2025 11:05 AM EDT Pt is scheduled on 03/15. If you want her in sooner, where would like me to put her? Or if the is ok, then we can leave it. Thank you. documented in this encounter Plan of Treatment Upcoming Encounters Date Type Department Care Team (Late st Contact Info) Description 03/15/2025 1:30 PM EST Office Visit [facility] Internal Medicine - Family Medicine [address] [place] [address] Michael Steiner DO [address] [place] [address] documented as of this encounter Goals Goal Patient Goal Type Associated Problems Recent Progress Patient-Stated? Author home General Yes Jimena Snider LSW Note: Evaluation of progress towards goal: feeling better documented as of this encounter Visit Diagnoses Not on filedocumented in this encounter Additional Health Concerns Assessment Noted Time PHQ-9 Depression Total Score: 0 12/16/19 12:36 PM EDT documented as of this encounter Care Teams Hospital Orderly Relationship Specialty Start Date End Date Michael Steiner DO [address] [place] [address] PCP - General Internal Medicine 12/17/23 documented as of this encounter
--- OUTSIDE RECORDS SUMMARY | 2025-02-13 11:10 | XMS_ITS | Encounter Summary ---
Author Organization [employer] tem Address [id number] [address] [place] [address] Care Team Providers Care Erector Operator Name Role Phone JoanMichael gonsalez Janae CABRERA Primary Care Provider [phone] Reason for Visit * Reason Onset Date Comments Weight gain and swelling 08/31/2020 Encounter Details Date Type Department Care Team (Late st Contact Info) Description 08/31/2020 Telephone [facility] Cardiology [address] [place] [address] Sharon Beaver, VICTOR M Weight gain and swelling Social History Tobacco Use Types Packs/Day Years Used Date Smoking Tobacco: Every Day Cigarettes Smokeless Tobacco: Current Chew Comments:5-6 cigerettes a da y Alcohol Use Standard Drinks/Week Comments No 0 (1 standard drink = 0.6 oz pur e alcohol) Social Connection and Isolation Panel Answer Date Recorded In a typical week, how many times do you talk on the phone with family, friends, or neighbors? Twice a week 01/09/2020 How often do you get together with friends or re latives? Twice a week 01/09/2020 How often do you attend rastafari or restorationist serv ices? Never 01/09/2020 Do you belong [...] Recorded Do you need help finding a [employer] career center and/or a training program? No [...] Medicine - Family Medicine [address] [place] [address] Michael Steiner DO [address] [place] [address] documented as of this encounter Visit Diagnoses [...] documented as of this encounter Care Teams Erector Operator Relationship Specialty Start Date End Date Michael Steiner DO [address] [place] [address] PCP - General Internal Medicine 12/17/23 documented as of this encounter
--- OUTSIDE RECORDS SUMMARY | 2025-02-13 11:10 | XMS_ITS | Encounter Summary ---
Author Organization [employer] s tem Address [id number] [address] [place] [address] Care Team Providers Care Senior Account Representative Name Role Phone Michael Steiner DO Primary Care Provider [phone] Encounter Details Date Type Department Care Team (Late st Contact Info) Description 01/10/2025 Telephone [facility] - Family Medicine [address] [place] [phone] Megan Talley, ELIAN Social History Tobacco Use Types Packs/Day Years Used Date Smoking Tobacco: Former Cigarettes 1 40 0 09/1981 - 09/2021 Smokeless Tobacco: Never Comments:5-6 cigerettes a da y Alcohol Use Standard Drinks/Week Comments Not Currently 0 (1 standard drink = 0.6 oz pur e alcohol) last use 15 years ago [facility] Utilities Answer Date Recorded In the past 12 months has [employer], gas, oil, or water [employer] threatened to shut off services in [...] How often do you attend chur or advent services? More than 4 times [...] Answer Date Recorded Total Score 0 12/15/2024 [facility] of Occupat ional Health [...] Telephone Encounter - Megan Talley CMA - 01/10/2025 5:28 PM EDT [facility] called and said the magic mouthwash cannot be compounded and made anymore, and is no longer available commercially. Thank you. documented in this encounter Plan of Treatment Upcoming Encounters Date Type Department Care Team (Late st Contact Info) Description 03/15/2025 1:30 PM EST Office Visit [facility] Internal Medicine - Family Medicine [address] [place] [address] Michael Steiner, [address] [place] [address] documented as of this encounter Goals Goal [...] as of this encounter Care Teams Senior Account Representative Relationship Specialty Start Date End Date Michael Steiner DO [address] [place] [address] PCP - General Internal Medicine 12/17/23 documented as of this encounter
--- OUTSIDE RECORDS SUMMARY | 2025-02-13 11:10 | XMS_ITS | Encounter Summary ---
Author Organization [facility] [employer] tem Address [id number] [address] [place] [address] Care Team Providers Care Branch Chief Name Role Phone Michael Steiner DO Primary Care Provider [phone] Encounter Details Date Type Department Care Team (Late st Contact Info) Description 02/03/2025 Telephone [facility] Heart Failure Clinic [address] [place] [phone] Antoinette Sanchez CNA Social History Tobacco Use [...] Recorded In the past 12 months has [employer], gas, oil, or water [employer] threatened to shut off services in your [...] often do you attend [facility] or hinduism services? More than 4 times [...] Answer Date Recorded Total Score 0 12/15/2024 [facility] of Occupat ional Health - [...] Do you need help finding a [facility] career center and/or a training program? [...] encounter Miscellaneous Notes * Telephone Encounter - Antoinette Sanchez CNA - 02/03/2025 1:55 PM EDT LEFT VOICEMAIL REMINDER ABOUT APPOINTMENT ON THURSDAY 3:30. documented in this encounter Plan of Treatment Upcoming Encounters Date Type Department Care Team (Late st Contact Info) Description 03/15/2025 1:30 PM EST Office Visit [facility] Internal Medicine - Family Medicine [address] [place] [address] Michael Steiner DO [address] [place] [address] documented as of this encounter Goals Goal [...] documented as of this encounter Care Teams Branch Chief Relationship Specialty Start Date End Date Michael Steiner DO [address] [place] [id number] PCP - General Internal Medicine 12/17/23 documented as of this encounter
--- OUTSIDE RECORDS SUMMARY | 2025-02-13 11:10 | XMS_ITS | Encounter Summary ---
Author Organization [employer] Sys tem Address [id number] [address] [place] [address] Care Team Providers Care Dev Technical Mgr Name Role Phone Michael Steiner DO Primary Care Provider [phone] Encounter Details Date Type Department Care Team (Late st Contact Info) Description 08/31/2020 Orders Only [facility] Cardiology [address] [place] [address] Sharon Beaver, VICTOR M Social History Tobacco [...] How often do you attend denominational or lutheran serv ices? Never 01/09/2020 Do you belong [...] Recorded Do you need help finding a [employer] career center and/or a training program? No [...] Internal Medicine - Family Medicine [address] [place] [address] Michael Steiner, [address] [place] [address] documented as of this encounter Visit Diagnoses [...] documented as of this encounter Care Teams Dev Technical Mgr Relationship Specialty Start Date End Date Michael Steiner DO [address] [place] [address] PCP - General Internal Medicine 12/17/23 documented as of this encounter
--- OUTSIDE RECORDS SUMMARY | 2025-02-13 11:10 | XMS_ITS | Encounter Summary ---
Author Organization [facility] tem Address [id number] [address] [place] [address] Care Team Providers Care Pm Technician Name Role Phone Michael Steiner DO Primary Care Provider [phone] Encounter Details Date Type Department Care Team (Late st Contact Info) Description 01/10/2025 Orders Only [facility] Internal Medicine - Family Medicine [address] [place] [address] Michael Steiner DO [address] [place] [address] Stomatitis (Primary Dx) Social History Tobacco Use Types Packs/Day Years Used Date Smoking Tobacco: Former Cigarettes 1 40 0 09/1981 - 09/2021 Smokeless Tobacco: Never Comments:5-6 cigerettes a da y Alcohol Use Standard Drinks/Week Comments Not Currently 0 (1 standard drink = 0.6 oz pur e alcohol) last use 15 years ago [facility] Utilities Answer Date Recorded In the past 12 months has [employer], gas, oil, or water company threatened [...] often do you attend chur ch or worship services? More than 4 times per year [...] Answer Date Recorded Total Score 0 12/15/2024 [facility] of Occupat ional Health - [...] help finding a [facility] [employer] center and/or a training program? No 12/04/2024 [...] Internal Medicine - Family Medicine [address] [place] [address] Michael Steiner DO [address] [place] [address] documented as of this encounter Goals Goal Patient Goal Type Associated Problems Recent Progress Patient-Stated? Author home General Yes Jimena Snider LSW Note: Evaluation of progress towards goal: feeling better documented as of this encounter Visit Diagnoses Diagnosis Stomatitis- Primary Stomatitis and mucositis, unspecified documented in this encounter Additional Health Concerns Assessment Noted Time PHQ-9 Depression Total Score: 0 12/16/19 25 12:36 PM EDT documented as of this encounter Care Teams Pm Technician Relationship Specialty Start Date End Date Michael Steiner DO [address] [place] [address] PCP - General Internal Medicine 12/17/23 documented as of this encounter
--- OUTSIDE RECORDS SUMMARY | 2025-02-13 11:10 | XMS_ITS | Encounter Summary ---
Author Organization [employer] tem Address [id number] [address] [place] [address] Care Team Providers Care Operating Room Surgical Technician Name Role Phone JoanMichael gonsalez Janae CABRERA Primary Care Provider [phone] Encounter Details Date Type Department Care Team (Late st Contact Info) Description 09/05/2020 Orders Only [facility] Cardiology [address] [place] [phone] Sharon Beaver RN Edema, unspecified type (Primary [...] How often do you attend tenriism or yazidism serv ices? Never 01/09/2020 Do you belong [...] Recorded Do you need help finding a [employer] center and/or a training program? No 01/09/2020 [...] Medicine - Family Medicine [address] [place] [address] Michael Steiner, [address] [place] [address] documented as of this encounter Visit Diagnoses [...] documented as of this encounter Care Teams Operating Room Surgical Technician Relationship Specialty Start Date End Date Michael Steiner DO [address] [place] [address] PCP - General Internal Medicine 12/17/23 documented as of this encounter
--- OUTSIDE RECORDS SUMMARY | 2025-02-13 11:11 | XMS_ITS | Encounter Summary ---
Author Organization [facility] tem Address [id number] [address] [place] [address] Care Team Providers Care Cutting Supervisor Name Role Phone Michael Steiner DO Primary Care Provider [phone] Encounter Details Date Type Department Care Team (Late st Contact Info) Description 01/09/2025 Results Follow-Up [facility] - Endoscopy [address] [place] [address] Michael Steiner, [address] [place] [address] Surgical Pathology Social History Tobacco Use Types Packs/Day Years Used Date Smoking Tobacco: Former Cigarettes 1 40 0 09/1981 - 09/2021 Smokeless Tobacco: Never Comments:5-6 cigerettes a da y Alcohol Use Standard Drinks/Week Comments Not Currently 0 (1 standard drink = 0.6 oz pur e alcohol) last use 15 years ago [facility] Utilities Answer Date Recorded In the past [...] often do you attend chur ch or rastafarian services? More than 4 times [...] Answer Date Recorded Total Score 0 12/15/2024 [facility] of Occupat ional Health - Occupational Stress [...] Recorded Do you need help finding a [employer] career center and/or a training program? No [...] Internal Medicine - Family Medicine [address] [place] [address] Michael Steiner DO [address] [place] [address] documented as of this encounter Goals Goal [...] documented as of this encounter Care Teams Cutting Supervisor Relationship Specialty Start Date End Date Michael Steiner DO [address] [place] [address] PCP - General Internal Medicine 12/17/23 documented as of this encounter
--- OUTSIDE RECORDS SUMMARY | 2025-02-13 11:11 | XMS_ITS | Encounter Summary ---
Author Organization [employer] [employer] [facility] Address [id number] [address] [place] [address] Care Team Providers Care County Home Demonstrator Name Role Phone Joansunshine Michael Janae CABRERA Primary Care Provider [phone] Reason for Visit * Reason Onset Date Comments Med Refill 08/27/2020 Encounter Details Date Type Department Care Team (Late st Contact Info) Description 08/27/2020 Refill [facility] Cardiology [address] [place] [address] Mahsa Fam RN Med Refill Social History [...] How often do you attend zoroastrian or pentecostalism serv ices? Never 01/09/2020 Do [...] Recorded Do you need help finding a [employer] career center and/or a training program? No [...] 12:08 PM EDT Received p/c from [facility] that pt needs refill for atorvastatin 80 mg and Order for Knee high support stockings documented in this encounter Plan of Treatment Upcoming Encounters Date Type Department Care Team (Late st Contact Info) Description 03/15/2025 1:30 PM EST [facility] [address] [place] [address] Michael Steiner DO [address] [place] [address] documented as of this encounter Visit Diagnoses Diagnosis ASCVD (arteriosclerotic cardiovascular disease)- Primary Unspecified cardiovascular disease NSTEMI (non-ST elevated myocardial infarction) ([facility]) Acute myocardial infarction, subendocardial infarction, episode of [...] documented as of this encounter Care Teams County Home Demonstrator Relationship Specialty Start Date End Date Michael Steiner DO [address] [place] [address] PCP - General Internal Medicine 12/17/23 documented as of this encounter
--- OUTSIDE RECORDS SUMMARY | 2025-02-13 11:11 | XMS_ITS | Encounter Summary ---
Author Organization [facility] tem Address [id number] [address] [place] [address] Care Team Providers Care Artificial Teeth Inspector Name Role Phone Michael Steiner DO Primary Care Provider [phone] Encounter Details Date Type Department Care Team (Late st Contact Info) Description 02/06/2025 Telephone [facility] - Heart Failure Clinic [address] [place] [address] Antoinette Sanchez CNA Social History Tobacco Use Types Packs/Day Years Used Date Smoking Tobacco: Former Cigarettes 1 40 0 09/1981 - 09/2021 Smokeless Tobacco: Never Comments:5-6 cigerettes a da y Alcohol Use Standard Drinks/Week Comments Not Currently 0 (1 standard drink = 0.6 oz pur e alcohol) last use 15 years ago [facility] Utilities Answer Date Recorded In the past 12 months has th [employer], gas, oil, or water [employer] threatened to shut off services in your home? No 12/04/2024 Social Connection and Isolation Panel Answer Date Recorded In a typical week, how many times do you talk on the phone with family, friends, or neighbors? Three times a week 07/25/2023 How often do you get togethe r with friends or relatives? Three times a week 07/25/2023 How often do you attend [facility] or buddhist services? More than 4 times [...] Internal Medicine - Family Medicine [address] [place] [address] Michael Steiner DO [address] [place] [address] documented as of this encounter Goals Goal [...] documented as of this encounter Care Teams Artificial Teeth Inspector Relationship Specialty Start Date End Date Michael Steiner DO [address] [place] [address] PCP - General Internal Medicine 12/17/23 documented as of this encounter
--- OUTSIDE RECORDS SUMMARY | 2025-02-13 11:11 | XMS_ITS | Encounter Summary ---
Author Organization [employer] s tem Address [id number] [address] [place] [address] Care Team Providers Care Vp Packaging Name Role Phone Michael Steiner DO Primary Care Provider [phone] Encounter Details Date Type Department Care Team (Late st Contact Info) Description 02/06/2025 Telephone [facility] - Family Medicine [address] [place] [address] Tosin Reyes CMA Social History Tobacco Use [...] Recorded In the past 12 months has [employer], gas, oil, or water [employer] threatened to shut off services in your [...] How often do you attend chur or adventism services? More than 4 times [...] encounter Miscellaneous Notes * Telephone Encounter - Tosin Reyes CMA - 02/06/2025 9:45 AM EDT Franci from [facility] pain management called and stated that patient voiced concern of that she wanted to restart the gabapentin. Doctor was wondering why it was discontinued? * Telephone Encounter - Michael Steiner DO - 02/06/2025 9:45 AM EDT Message noted. Side effects. We replaced it with pregabalin. I do not know who Franci is, but she should know these things. And if she does not, she should not be asking the questions. * Telephone Encounter - Tosin Reyes CMA - 02/06/2025 9:45 AM EDT Notified Franci documented in this encounter Plan of Treatment Upcoming Encounters Date Type Department Care Team (Late st Contact Info) Description 03/15/2025 1:30 PM EST Office Visit [facility] Internal Medicine - Family Medicine [address] [place] [address] Michael Steiner DO [address] [facility] [place] [address] documented as of this encounter Goals Goal [...] as of this encounter Care Teams Vp Packaging Relationship Specialty Start Date End Date Michael Steiner DO [address] [facility] [place] [address] PCP - General Internal Medicine 12/17/23 documented as of this encounter
--- OUTSIDE RECORDS SUMMARY | 2025-02-13 11:11 | XMS_ITS | Encounter Summary ---
Author Organization [facility] Grid20/[facility] tem Address [id number] [address] [place] [address] Care Team Providers Care Heel Scourer Name Role Phone Michael Steiner DO Primary Care Provider [phone] Reason for Visit * Auth/Cert Specialty Diagnoses / Procedures Referred By Rick rahman Referred To Contact Procedures [place] ESOPHAGOGASTRODUODENOSCOPY TRANSORAL DIAGNOSTIC ESOPHAGOGASTRODUODENOSCOPY DIAGNOSTIC Michael Steiner DO [address] [place] [address] Phone: tel: fax: Referral ID Status Reason Start Date Expiration Date Visits Re quested Visits Authorized [id number] 1 1 Encounter Details Date Type Department Care Team (Late st Contact Info) Description 12/20/2024 Hospital Encounter [facility] - Endoscopy [address] [place] [phone] Michael Steiner DO [address] [place] [address] Microcytic anemia (Primary Dx) Social History Tobacco Use Types Packs/Day Years Used Date Smoking Tobacco: Former Cigarettes 1 40 0 09/1981 - 09/2021 Smokeless Tobacco: Never Comments:5-6 cigerettes a da y Alcohol Use Standard Drinks/Week Comments Not Currently 0 (1 standard drink = 0.6 oz pur e alcohol) last use 15 years ago [facility] Utilities Answer Date Recorded In the [...] Answer Date Recorded Total Score 0 12/15/2024 [facility] of Occupat ional Health - Occupational Stress [...] PM EST documented as of this encounter H&P Notes * Michael Steiner, - 12/17/2024 11:44 AM EDT Pre-Procedural Diagnosis: Microcytic anemia Indications: same Procedure Planned: EGD History Obtained From: patient HISTORY OF PRESENT ILLNESS: The patient is a 64 y.o. female who presents for the above procedure. Past Medical History: Past Medical History: Diagnosis Date Agoraphobia Angina at rest Anxiety BiPAP (biphasic positive airway pressure) dependence Bipolar disorder ([facility]) Breast injury CHF (congestive heart failure) ([facility]) Chipped tooth Chronic kidney disease COPD (chronic obstructive pulmonary disease) ([facility]) Coronary artery disease Dementia ([facility]) Depression Diarrhea frequent bouts /involuntary Dizziness Fracture, vertebral, lumbar closed ([facility]) GERD (gastroesophageal reflux disease) Headache History of coronary artery bypass graft 08/14/2020 Liver disease Low back pain Lump or mass in breast Memory loss Myocardial infarction ([facility]) Apr 2009, swith stent placement Obesity BONY treated with BiPAP 07/31/2022 Osteoarthritis Panic disorder Psoriasis PTSD (post-traumatic stress disorder) Pulmonary emboli ([facility]) Rib fracture 09/2023 lt Rotator cuff tear L Shortness of breath Sleep apnea Visual impairment glasses Past Surgical History: Past Surgical History: Procedure Laterality Date BREAST BIOPSY BREAST CYST EXCISION Cardiac catheterization N/A 01/09/2020 Performed by Yefri Khan MD at [facility] Cardiac catheterization-LV Cors N/A 08/06/2020 Performed by Hazel Painting MD at [facility] SECTION CHOLECYSTECTOMY COLONOSCOPY N/A 04/03/2017 Performed by Jose Beaver MD at [facility] Coronary angiogram and left ventricular gram/pressure N/A 01/09/2020 Performed by Yefri Khan MD at [facility] CORONARY ANGIOPLASTY WITH STENT PLACEMENT CORONARY ARTERY BYPASS GRAFT X4/ THOMPSON/ SVG X3 / RIGHT UPPER LEG OPEN VEIN HARVEST/ LEFT UPPER LEG OPEN VEING HARVEST /GINETTE N/A 08/13/2020 Performed by Leroy Meng MD at [facility] Drug eluting stent left anterior descending N/A 01/09/2020 Performed by Yefri Khan MD at [facility] EXCISION SEROMA LOWER EXTREMITY Left 10/07/2022 Performed by Victor Hugo Vincent DO at [facility] Intravascular ultrasound coronary N/A 08/06/2020 Performed by Hazel Painting MD at [facility] Intravascular ultrasound coronary N/A 01/09/2020 Performed by Yefri Khan MD at [facility] NOTCHARGED/Thrombolysis arterial initial treatment N/A 01/09/2020 Performed by Yefri Khan MD at [facility] TONSILLECTOMY Medications: No current facility-administered medications for this encounter. Current Outpatient Medications Medication Sig Dispense Refill [...] mouth in the morning. 90 tablet 3 lckxfwczya-zwabrtrz-eviweenebi (BREZTRI AEROSPHERE) 160-9-4.8 mcg/actuation HFA aerosol inhaler Inhale 2 puffs in the morning and 2 puffs before bedtime. 10.7 g 10 celecoxib (CeleBREX) 200 mg capsule Take 1 capsule (200 mg total) by mouth in the morning. 30 capsule 2 cholecalciferol, vitamin D3, 5,000 units tablet Take 2 tablets (10,000 Units total) by mouth in themorning. clonazePAM (KlonoPIN) 0.5 mg tablet cyanocobalamin 1000 [...] mouth in the morning. 90 tablet 1 guaiFENesin (MUCINEX) 600 mg tablet extended release 12hr Take 1 tablet (600 mg total) by mouth every 12 (twelve) hours. 14 tablet 0 hydrOXYzine (ATARAX) 25 mg tablet Take 1 [...] (100 mg total) by mouth before bedtime. spironolactone (ALDACTONE) 25 mg tablet Take 1 tablet (25 mg total) by mouth in the morning. 90 tablet 0 torsemide (DEMADEX) 10 mg tablet Take 3 tablets (30 mg total) by mouth daily. TRINTELLIX 10 mg tablet Take 1 tablet (10 mg total) by mouth in the morning. Allergies: Allergies Allergen Reactions Penicillins Anaphylaxis Other Reaction(s): Swelling of Lip/Tongue/Throat Fentanyl Other (See Comments) Morphine Other (See Comments) I hallucinate This is not a true allergy Problems with Sedation/Anesthesia in the past? no REVIEW OF SYSTEMS: 12 point review of systems negative other than mentioned above. PHYSICAL EXAM: Vitals: There were no vitals taken for this visit. Focused Exam related to procedure: General appearance: NAD, conversant Lungs: CTA, with normal respiratory effort and no intercostal retractions CV: RRR, no MRGs Abdomen: Soft, non-tender; no masses or HSM ASA ([employer] [employer] Anesthesiology) Anesthesia Status: Class II Soft palate, fauces, uvula ASA Physical Status Classification: ASA 3 - Patient with moderate systemic disease with functional limitations ASSESSMENT AND PLAN: 1. Patient is a 64 y.o. female with above specified procedure planned. Expected Sedation/Anesthesia Type: Moderate Sedation 2. Procedure options, risks and benefits reviewed with Patient. Patient expresses understanding. 3. Consent has been signed: Yes documented in this encounter Miscellaneous Notes * Pre-Procedure Note - Michael Steiner DO - 12/17/2024 11:43 AM EDT PRE-PROCEDURE ASSESSMENT NOTE: AIRWAY EVALUATION obesity and difficult airway ASA CLASSIFICATION Patient's ASA classification is class III - a patient with a severe systemic disease that limits activity but is not incapacitated. MALLAMPATI SCALE Patient's Mallampati score is Class II - soft palate, fauces, uvula. Assessment: Neurological alert and oriented Respiratory breath sounds present bilaterally Cardiac regular rate and rhythm Plan of Care Patient is appropriate candidate for moderate sedation Medications to be given fentanyl and midazolam documented in this encounter Plan of Treatment Upcoming Encounters Date Type Department Care Team (Late st Contact Info) Description 03/15/2025 1:30 PM EST Office Visit [facility] Internal Medicine - Family Medicine [address] [place] [address] Michael Steiner DO [address] [place] [address] documented as of this encounter Goals Goal Patient Goal Type Associated Problems Recent Progress Patient-Stated? Author home General Yes Jimena Snider LSW Note: Evaluation of progress towards goal: feeling better documented as of this encounter Visit Diagnoses Diagnosis Microcytic anemia- Primary Unspecified iron deficiency anemia documented in this encounter Administered Medications Active Administered Medications - up to 3 most recent administrations Medication Order MAR Action Action Date Dose Rate Site sodium chloride 0.9 % flush 3 mL 3 mL, intravenous, As needed, line care, before and after each intermittent use, Starting on 12/17/24 at 1146 documented in this encounter Additional Health Concerns Assessment Noted Time PHQ-9 Depression Total Score: 0 12/16/19 25 12:36 PM EDT documented as of this encounter Care Teams Heel Scourer Relationship Specialty Start Date End Date Michael Steiner DO [address] [place] [address] PCP - General Internal Medicine 12/17/23 documented as of this encounter
--- OUTSIDE RECORDS SUMMARY | 2025-02-13 11:11 | XMS_ITS | Encounter Summary ---
Author Organization [employer] tem Address [id number] [address] [place] [address] Care Team Providers Care Cnc Lathe Programmer Name Role Phone Michael Steiner DO Primary Care Provider [phone] Encounter Details Date Type Department Care Team (Latest Contact Info) Description 02/09/2025 Travel Social History Tobacco Use Types Packs/Day [...] Medicine - Family Medicine [address] [place] [address] Michael Steiner DO [address] [place] [address] documented as of this encounter Goals Goal [...] documented as of this encounter Care Teams Cnc Lathe Programmer Relationship Specialty Start Date End Date Michael Steiner DO [address] [place] [address] PCP - General Internal Medicine 12/17/23 documented as of this encounter
--- OUTSIDE RECORDS SUMMARY | 2025-02-13 11:11 | XMS_ITS | Encounter Summary ---
Author Organization [facility] tem Address [id number] [address] [place] [address] Care Team Providers Care Layboy Operator Name Role Phone Michael Steiner DO Primary Care Provider [phone] Encounter Details Date Type Department Care Team (Late st Contact Info) Description 12/28/2024 Results Follow-Up [facility] - Heart Failure Clinic [address] [place] [address] Kacey Sims RN Basic Metabolic Panel Social [...] Recorded In the past 12 months has [employer], gas, oil, or water [employer] threatened to shut off services in your home? No 12/04/2024 Social Connection and Isolation Panel Answer Date Recorded In a typical week, how many times do you talk on the phone with family, friends, or neighbors? Three times a week 07/25/2023 How often do you get togethe r with friends or relatives? Three times a week 07/25/2023 How often do you attend [facility] or [facility]ational services? More than 4 times [...] Answer Date Recorded Total Score 0 12/15/2024 [facility] of Occupat ional Health [...] Internal Medicine - Family Medicine [address] [place] [address] Michael Steiner DO [address] [place] [address] documented as of this encounter Goals Goal [...] documented as of this encounter Care Teams Layboy Operator Relationship Specialty Start Date End Date Michael Steiner DO [address] [place] [address] PCP - General Internal Medicine 12/17/23 documented as of this encounter
--- OUTSIDE RECORDS SUMMARY | 2025-02-13 11:11 | XMS_ITS | Encounter Summary ---
Author Organization [facility] tem Address [id number] [address] [place] [address] Care Team Providers Care Conciliation Court Judge Name Role Phone Michael Steiner DO Primary Care Provider [phone] Reason for Visit * Reason Comments Med Refill Encounter Details Date Type Department Care Team (Late st Contact Info) Description 09/28/2020 Refill [facility] - Kilo Hodge [place] [address] [place] [address] Tiffany Luna APRN-TIME PIECE REPAIRER [address] [facility] [place], [place] [phone] Social History Tobacco Use Types Packs/Day Years [...] How often do you attend rastafarian or mosque serv ices? Never 01/09/2020 Do [...] Recorded Do you need help finding a [employer] career center and/or a training program? No [...] Internal Medicine - Family Medicine [address] [place] [address] Michael Steiner, [address] [place] [address] documented as of this encounter Visit Diagnoses [...] documented as of this encounter Care Teams Conciliation Court Judge Relationship Specialty Start Date End Date Michael Steiner DO [address] [place] [address] PCP - General Internal Medicine 12/17/23 documented as of this encounter
--- OUTSIDE RECORDS SUMMARY | 2025-02-13 11:11 | XMS_ITS | Encounter Summary ---
Author Organization [employer] [facility] tem Address [id number] [address] [place] [address] Care Team Providers Care Pc Tech Name Role Phone Obdulia Michael Janae CABRERA Primary Care Provider [phone] Reason for Visit * Reason Onset Date Comments Lorenzo 10/19/2020 Encounter Details Date Type Department Care Team (Late st Contact Info) Description 10/19/2020 [facility]phone [facility] [address] [place] [address] Sharon Beaver, VICTOR M Ventura [...] How often do you attend amish or druze serv ices? Never 01/09/2020 Do [...] Recorded Do you need help finding a [employer] career center and/or a training program? No [...] PM EDT Prior auth done for [employer]-note [facility] sent note not available and no idea if they will get any in -called [facility] they have a starter pack available. Called pt to see if she would be willing to getat [employer] due to questional availability at [facility]-states has decided not to use [employer]. documented in this encounter Plan of Treatment Upcoming Encounters Date Type Department Care Team (Late st Contact Info) Description 03/15/2025 1:30 PM EST Office Visit [facility] Internal Medicine - Family Medicine [address] [place] [address] Michael Steiner DO [address] [place] [address] documented as of this encounter Visit Diagnoses [...] documented as of this encounter Care Teams Pc Tech Relationship Specialty Start Date End Date Michael Steiner DO [address] [place] [address] PCP - General Internal Medicine 12/17/23 documented as of this encounter
--- OUTSIDE RECORDS SUMMARY | 2025-02-13 11:11 | XMS_ITS | Encounter Summary ---
Author Organization [employer] [facility] tem Address [id number] [address] [place] [address] Care Team Providers Care Department Operations Manager Name Role Phone Michael Steiner DO Primary Care Provider [phone] Encounter Details Date Type Department Care Team (Late st Contact Info) Description 12/21/2024 [facility]phone [facility] [address] [place] [address] Juan Diego Esquivel CMA Social History Tobacco Use Types Packs/Day Years Used Date Smoking Tobacco: Former Cigarettes 1 40 0 09/1981 - 09/2021 Smokeless Tobacco: Never Comments:5-6 cigerettes a da y Alcohol Use Standard Drinks/Week Comments Not Currently 0 (1 standard drink = 0.6 oz pur e alcohol) last use 15 years ago [facility] Utilities Answer Date Recorded In the past 12 months has [employer], gas, oil, or water [employer] threatened to shut off services in your [...] How often do you attend chur or congregational services? More than 4 times [...] Answer Date Recorded Total Score 0 12/15/2024 [facility] of Occupat ional Health - [...] Encounter - Juan Diego Esquivel CMA - 12/21/2024 1:08 PM EDT I called pt and rescheduled her for a EGD on Jan 04 at 10am to arrive at 0900. This was verified with scheduling. Pt already has instructions. She is very apologetic about no showing yesterday. There was a family emergency. She will call next time. * Telephone Encounter - Michael Steiner DO - 12/21/2024 1:08 PM EDT Message noted. documented in this encounter Plan of Treatment Upcoming Encounters Date Type Department Care Team (Late st Contact Info) Description 03/15/2025 1:30 PM EST Office Visit [facility] Internal Medicine - Family Medicine [address] [place] [address] Michael Steiner DO [address] [facility] [place] [address] documented as of this encounter Goals Goal [...] documented as of this encounter Care Teams Department Operations Manager Relationship Specialty Start Date End Date Michael Steiner DO [address] [id number] PCP - General Internal Medicine 12/17/23 documented as of this encounter
--- OUTSIDE RECORDS SUMMARY | 2025-02-13 11:12 | XMS_ITS | Encounter Summary ---
Author Organization [facility] Address [facility][id number] [address] [place] [address] Care Team Providers Care Front Tender Name Role Phone Michael Steiner DO Primary Care Provider [phone] Encounter Details Date Type Department Care Team (Late st Contact Info) Description 04/29/2023 Documentation [facility] [address] [place] [phone] Pao Hernandez, CAMPAIGN DEVELOPER-MANAGER OF BUSINESS [address] [place] [address] Social History Tobacco Use Types [...] How often do you attend muslim or jain serv ices? Never 01/09/2020 Do you belong [...] Recorded Do you need help finding a [employer] [place] center and/or a training program? No 01/09/2020 [...] Medicine - Family Medicine [address] [facility] [place] [place] [address] Michael Steiner, DO [address] [place] [address] documented as of this encounter Visit Diagnoses [...] documented as of this encounter Care Teams Front Tender Relationship Specialty Start Date End Date Michael Steiner DO [address] [place] [address] PCP - General Internal Medicine 12/17/23 documented as of this encounter
--- OUTSIDE RECORDS SUMMARY | 2025-02-13 11:12 | XMS_ITS | Encounter Summary ---
Author Organization [facility] Address [id number] [address] [place] [address] Care Team Providers Care Senior Business Analyst Name Role Phone Michael Steiner DO Primary Care Provider [phone] Encounter Details Date Type Department Care Team (Late st Contact Info) Description 09/03/2022 [facility] [address] [facility] [address] [place] [address] Cynthia Buchanan, LINE CONSTRUCTION SUPERINTENDENT-METAL SPRAY OPERATOR [address] [place], [place] [phone] Social History Tobacco Use Types Packs/Day Years [...] How often do you attend religious or church serv ices? Never 01/09/2020 Do you belong [...] Recorded Do you need help finding a [employer] career center and/or a training program? No [...] Internal Medicine - Family Medicine [address] [place] [address] Michael Steiner, DO [address] [place] [address] documented as of this encounter Visit Diagnoses [...] as of this encounter Care Teams Senior Business Analyst Relationship Specialty Start Date End Date Michael Steiner DO [address] [place] [address] PCP - General Internal Medicine 12/17/23 documented as of this encounter
--- OUTSIDE RECORDS SUMMARY | 2025-02-13 11:12 | XMS_ITS | Encounter Summary ---
Author Organization [facility] Address [id number] [address] [place] [address] Care Team Providers Care Direct Sales Professional Name Role Phone Michael Steiner DO Primary Care Provider [phone] Reason for Visit * Reason Comments Med Refill Encounter Details Date Type Department Care Team (Late st Contact Info) Description 06/10/2023 Refill [facility] Pulmonary/Sleep Medicine [address] [address] Grace Meadows DO [address] [address] Social History Tobacco Use Types [...] How often do you attend caodaism or yazdanism serv ices? Never 01/09/2020 Do [...] Medicine - Family Medicine [address] [facility] [place] [place] [address] Michael Steiner DO [address] [place] [address] documented as of this encounter Visit Diagnoses [...] documented as of this encounter Care Teams Direct Sales Professional Relationship Specialty Start Date End Date Michael Steiner DO [address] [place] [address] PCP - General Internal Medicine 12/17/23 documented as of this encounter
--- OUTSIDE RECORDS SUMMARY | 2025-02-13 11:12 | XMS_ITS | Encounter Summary ---
Author Organization [facility] Address [id number] [address] [place] [address] Care Team Providers Care Junior Data Analyst Name Role Phone Michael Steiner DO Primary Care Provider [phone] Encounter Details Date Type Department Care Team (Late st Contact Info) Description 09/04/2022 [facility] [address] [facility] [address] [place] [address] Cynthia Buchanan, ASSOCIATE FACULTY-SHIRT TRIMMER [address] [place], [place] [id number] Social History Tobacco Use Types Packs/Day Years [...] week 01/09/2020 How often do you attend druze or nondenominational serv ices? Never 01/09/2020 Do [...] Recorded Do you need help finding a [employer] career center and/or a training program? No [...] Internal Medicine - Family Medicine [address] [place] [address] Michael Steiner, DO [address] [place] [address] documented as of this encounter Visit Diagnoses [...] documented as of this encounter Care Teams Junior Data Analyst Relationship Specialty Start Date End Date Michael Steiner DO [address] [place] [address] PCP - General Internal Medicine 12/17/23 documented as of this encounter
--- OUTSIDE RECORDS SUMMARY | 2025-02-13 11:12 | XMS_ITS | Encounter Summary ---
Author Organization [employer] [facility] tem Address [id number] [address] [place] [address] Care Team Providers Care Group Tester Name Role Phone Michael Steiner DO Primary Care Provider [phone] Reason for Visit * Reason Onset Date Comments Leg Swelling 07/21/2022 Encounter Details Date Type Department Care Team (Late st Contact Info) Description 07/21/2022 Telephone [facility] [address] [place] [address] Mahsa Fam RN Leg Swelling [...] How often do you attend buddhist or alevism serv ices? Never 01/09/2020 Do [...] Recorded Do you need help finding a [employer] career center and/or a training program? No [...] EDT Received p/c from pt's friend Norma Chance. Would like permission to restart [employer]. 5 [...] Internal Medicine - Family Medicine [address] [place] [address] Michael Steiner, [address] [place] [address] documented as of this encounter Results * (ABNORMAL) Basic Metabolic Panel (07/25/2022 11:24 AM EDT) Sodium 138 134 - 146 mmol/L 07/25/2022 3:16 PM EDT [facility] Potassium, Bld 2.8(L) 3.5 - 5.0 mmol/L 07/25/2022 3:16 PM EDT [facility] Chloride 93(L) 98 - 109 mmol/L 07/25/2022 3:16 PM EDT [facility] CO2 29 22 - 32 mmol/L 07/25/2022 3:16 PM EDT [facility] Anion gap 16(H) 5 - 15 mmol/L 07/25/2022 3:16 PM EDT [facility] BUN 29(H) 5 - 23 mg/dL 07/25/2022 3:16 PM EDT [facility] Creatinine 2.20(H) 0.40 - 1.00 mg/dL 07/25/2022 3:16 PM EDT [facility] Comment:METHOD TRACEABLE TO IDMS STANDARD Glucose 135(H) 65 - 99 mg/dL 07/25/2022 3:16 PM EDT [facility] Calcium 10.8(H) 8.5 - 10.5 mg/dL 07/25/2022 3:16 PM EDT [facility] eGFR (CKD-EPI)non-ra ce dependent 25(L) >59 ml/min/1.7 3sq.m 07/25/2022 3:16 PM EDT [facility] Comment: Reported eGFR is based on the CKD-EPI 2020 equation that does not use a race coefficient. PLASMA 07/25/2022 11:2 4 AM EDT 07/25/2022 11:25 AM EDT us Nikolay Garcia PA-C LAB BLOOD ORDERABLES Fin al Result SKYLER [facility] [address] [facility] [place] [address] documented in this encounter Visit Diagnoses Diagnosis [...] documented as of this encounter Care Teams Group Tester Relationship Specialty Start Date End Date Michael Steiner DO [address] [place] [address] PCP - General Internal Medicine 12/17/23 documented as of this encounter
--- OUTSIDE RECORDS SUMMARY | 2025-02-13 11:12 | XMS_ITS | Encounter Summary ---
Author Organization [facility] Address [id number] [address] [place] [address] Care Team Providers Care Asphalt Spreader Operator Name Role Phone Obdulia Michael Janae CABRERA Primary Care Provider [phone] Reason for Visit * Reason Onset Date Comments Med Refill 12/24/2023 Encounter Details Date Type Department Care Team (Late st Contact Info) Description 12/24/2023 Refill [facility] Internal Medicine - Family Medicine [address] [facility] [place] [address] Monica Johnston CMA Social History Tobacco Use Types Packs/Day Years Used Date Smoking Tobacco: Former Cigarettes 1 40 0 09/1981 - 09/2021 Smokeless Tobacco: Never Comments:5-6 cigerettes a da y Alcohol Use Standard Drinks/Week Comments Not Currently 0 (1 standard drink = 0.6 oz pur e alcohol) last use 15 years ago [facility] Utilities Answer Date Recorded In the past 12 months has th [employer] electric, gas, oil, or water company threatened to shut off services in your home? No 08/28/2023 Social Connection and Isolation Panel Answer Date Recorded In a typical week, how many times do you talk on the phone with family, friends, or neighbors? Three times a week 07/25/2023 How often do you get togethe r with friends or relatives? Three times a week 07/25/2023 How often do you attend [facility] or mormon services? More than 4 [...] Date Recorded Total Score 0 11/02/2023 [facility] of Occupat ional [...] to cb * Telephone Encounter - Cathleen Arreloa - 12/24/2023 10:18 AM EDT Contacted patient, please close documented in this encounter Plan of Treatment Upcoming Encounters Date Type Department Care Team (Late st Contact Info) Description 03/15/2025 1:30 PM EST Office Visit [facility] Internal Medicine - Family Medicine [address] [place] [address] Michael Steiner DO [address] [place] [address] documented as of this encounter Visit Diagnoses Not on filedocumented in this encounter Additional Health Concerns Assessment Noted Time PHQ-9 Depression Total Score: 0 11/02/19 3:42 PM EDT documented as of this encounter Care Teams Asphalt Spreader Operator Relationship Specialty Start Date End Date Michael Steiner DO [address] [place] [address] PCP - General Internal Medicine 12/17/23 documented as of this encounter
--- OUTSIDE RECORDS SUMMARY | 2025-02-13 11:12 | XMS_ITS | Encounter Summary ---
Author Organization [facility] tem Address [id number] [address] [place] [address] Care Team Providers Care Product Support Manager Name Role Phone Michael Steiner DO Primary Care Provider [phone] Reason for Referral * Misc (Routine) - Closed Specialty Diagnoses / Procedures Referred By Contluann t Referred To Contact Diagnoses Chronic respiratory failure with hypoxia and hypercapnia (CMS-HCC) Chronic heart failure with preserved ejection fraction (CMS-HCC) Procedures Oxygen Therapy Michael Steiner DO [address] [place] [address] Phone: tel: fax: Referral ID Status Reason Start Date Expiration Date Visits Re quested Visits Authorized [id number] Closed 12/30/2023 12/29/2024 1 1 Encounter Details Date Type Department Care Team (Late st Contact Info) Description 12/30/2023 Orders Only [facility] Internal Medicine - Family Medicine [address] [place] [address] Michael Steiner DO [address] [place] [address] Chronic respiratory failure with hypoxia and hypercapnia [...] years ago [facility] Utilities Answer Date Recorded In the past 12 months has e [employer], gas, oil, or water [employer] threatened to shut off services in your [...] Answer Date Recorded Total Score 0 11/02/2023 [facility] of Occupat ional Health - Occupational Stress [...] - Family Medicine [address] [place] [address] Michael Steiner, DO [address] [place] [address] documented as of this encounter Visit Diagnoses Diagnosis Chronic respiratory failure with hypoxia and hypercapnia (CMS-HCC)- Primary Chronic heart failure with preserved ejection fraction (CMS-HCC) documented in this encounter Additional Health Concerns Assessment Noted Time PHQ-9 Depression Total Score: 0 11/02/19 24 3:42 PM EDT documented as of this encounter Care Teams Product Support Manager Relationship Specialty Start Date End Date Michael Steiner DO [address] [place] [address] PCP - General Internal Medicine 12/17/23 documented as of this encounter
--- OUTSIDE RECORDS SUMMARY | 2025-02-13 11:12 | XMS_ITS | Encounter Summary ---
Author Organization [facility] RV ID [facility] tem Address [id number] [address] [place] [address] Care Team Providers Care Senior Benefits Analyst Name Role Phone Michael Steiner DO Primary Care Provider [phone] Reason for Visit * Reason Comments Med Refill Encounter Details Date Type Department Care Team (Late st Contact Info) Description 09/03/2022 Refill [facility] [address] [place] [phone] Cynthia Buchanan, DAMAGE CUTTER-CURB AND GUTTER LABORER [address] [place] [address] Chronic heart failure with preserved ejection fraction [...] How often do you attend voodoo or methodist serv ices? Never 01/09/2020 Do [...] Recorded Do you need help finding a [employer] career center and/or a training program? No [...] Family Medicine [address] [place] [address] Michael Steiner, [address] [facility] [place] [address] documented as of this encounter Visit Diagnoses [...] as of this encounter Care Teams Senior Benefits Analyst Relationship Specialty Start Date End Date Michael Steiner DO [address] [place] [address] PCP - General Internal Medicine 12/17/23 documented as of this encounter
--- OUTSIDE RECORDS SUMMARY | 2025-02-13 11:12 | XMS_ITS | Encounter Summary ---
Author Organization [employer] [facility] tem Address [id number] [address] [place] [address] Care Team Providers Care Clerical Adjudicator Name Role Phone Michael Steiner DO Primary Care Provider [phone] Encounter Details Date Type Department Care Team (Late st Contact Info) Description 12/24/2023 Orders Only [facility] Internal Medicine - Family Medicine [address] [place] [address] Michael Steiner DO [address] [place] [address] Social History Tobacco Use Types Packs/Day Years Used Date Smoking Tobacco: Former Cigarettes 1 40 0 09/1981 - 09/2021 Smokeless Tobacco: Never Comments:5-6 cigerettes a da y Alcohol Use Standard Drinks/Week Comments Not Currently 0 (1 standard drink = 0.6 oz pur e alcohol) last use 15 years ago [facility] Utilities Answer Date Recorded In the past 12 months has [employer] electric, gas, oil, or water company threatened [...] Answer Date Recorded Total Score 0 11/02/2023 [facility] [place] of Occupat ional Health - Occupational Stress [...] Internal Medicine - Family Medicine [address] [place] [address] Michael Steiner DO [address] [place] [address] documented as of this encounter Visit Diagnoses Not on filedocumented in this encounter Additional Health Concerns Assessment Noted Time PHQ-9 Depression Total Score: 0 11/02/19 24 3:42 PM EDT documented as of this encounter Care Teams Clerical Adjudicator Relationship Specialty Start Date End Date Michael Steiner DO [address] [place] [address] PCP - General Internal Medicine 12/17/23 documented as of this encounter
--- OUTSIDE RECORDS SUMMARY | 2025-02-13 11:13 | XMS_ITS | Encounter Summary ---
Author Organization [facility] Address [id number] [address] [place] [address] Care Team Providers Care Canal Lock Tender Chief Operator Name Role Phone Joansunshine Michael Janae CABRERA Primary Care Provider [phone] Reason for Visit * Reason Comments Med Refill Encounter Details Date Type Department Care Team (Late st Contact Info) Description 11/27/2021 Refill [facility] Cardiology [address] [place] [phone] Tristen Maldonado MD [address] [place] [address] Med Refill Social History Tobacco Use Types [...] How often do you attend mormon or restorationist serv ices? Never 01/09/2020 Do [...] Recorded Do you need help finding a [employer] career center and/or a training program? No [...] Internal Medicine - Family Medicine [address] [place] [address] Michael Steiner, [address] [place] [address] documented as of this encounter Visit Diagnoses [...] documented as of this encounter Care Teams Canal Lock Tender Chief Operator Relationship Specialty Start Date End Date Michael Steiner DO [address] [place] [address] PCP - General Internal Medicine 12/17/23 documented as of this encounter
--- OUTSIDE RECORDS SUMMARY | 2025-02-13 11:13 | XMS_ITS | Encounter Summary ---
Author Organization [employer] [facility] tem Address [id number] [address] [place] [address] Care Team Providers Care Clerical Manager Name Role Phone Michael Steiner DO Primary Care Provider Encounter Details Date Type Department Care Team (Late st Contact Info) Description 11/06/2023 Orders Only [facility] Internal Medicine - Family Medicine [address] [place] [address] Michael Steiner DO [address] [place] [address] Chronic heart failure with preserved ejection fraction ([facility]-HCC) (Primary Dx) Social History Tobacco Use Types [...] Recorded In the past 12 months has [employer], gas, oil, or water company threatened to [...] often do you attend chur ch or confucianism services? More than 4 times per year [...] Answer Date Recorded Total Score 0 11/02/2023 [facility] [place] of Occupat ional Health - Occupational Stress [...] Recorded Do you need help finding a [facility] [facility] career center and/or a training program? [...] Internal Medicine - Family Medicine [address] [place] [address] Michael Steiner DO [address] [place] [address] documented as of this encounter Visit Diagnoses Diagnosis Chronic heart failure with preserved ejection fraction (CMS-HCC)- Primary documented in this encounter Additional Health Concerns Infection Onset Date Last Indicated Resolved Time COVID-19 Rule-Out 12/17/2023 12/17/2023 12/17/2023 1:50 PM EDT Assessment Noted Time PHQ-9 Depression Total Score: 0 11/02/19 24 3:42 PM EDT documented as of this encounter Care Teams Clerical Manager Relationship Specialty Start Date End Date Michael Steiner DO [address] [place] [address] PCP - General Internal Medicine 12/17/23 documented as of this encounter
--- OUTSIDE RECORDS SUMMARY | 2025-02-13 11:13 | XMS_ITS | Encounter Summary ---
Author Organization [employer] [facility] tem Address [id number] [address] [place] [address] Care Team Providers Care U.S. Commissioner Name Role Phone Michael Steiner DO Primary Care Provider [phone] Encounter Details Date Type Department Care Team (Late st Contact Info) Description 10/27/2023 Orders Only [facility] Internal Medicine - Family Medicine [address] [place] [address] Michael Steiner DO [address] [place] [address] Closed wedge compression fracture of T6 vertebra with routine healing Social History Tobacco Use Types Packs/Day Years Used Date Smoking Tobacco: Former Cigarettes 1 40 0 09/1981 - 09/2021 Smokeless Tobacco: Never Comments:5-6 cigerettes a da y Alcohol Use Standard Drinks/Week Comments Not Currently 0 (1 standard drink = 0.6 oz pur e alcohol) last use 15 years ago [facility] Utilities Answer Date Recorded In the past 12 months has [employer] electric, gas, oil, or water company threatened [...] often do you attend chur ch or gnosticism services? More than 4 times [...] Answer Date Recorded Total Score 0 09/30/2023 [facility] of Occupat ional [...] Internal Medicine - Family Medicine [address] [place] [address] Michael Steiner DO [address] [place] [address] documented as of this encounter Procedures Procedure [...] documented as of this encounter Care Teams U.S. Commissioner Relationship Specialty Start Date End Date Michael Steiner DO [address] [place] [address] PCP - General Internal Medicine 12/17/23 documented as of this encounter
--- OUTSIDE RECORDS SUMMARY | 2025-02-13 11:13 | XMS_ITS | Encounter Summary ---
Author Organization [facility] [facility] tem Address [id number] [address] [place] [address] Care Team Providers Care Gold Beater Name Role Phone Michael Steiner DO Primary Care Provider [phone] Encounter Details Date Type Department Care Team (Late st Contact Info) Description 11/20/2023 Orders Only [facility] Internal Medicine - Family Medicine [address] [place] [address] Michael Steiner DO [address] [place] [address] Social History Tobacco Use Types Packs/Day Years [...] Recorded In the past 12 months has [employer] electric, gas, oil, or water company [...] Answer Date Recorded Total Score 0 11/02/2023 [facility] of Occupat ional Health - Occupational Stress [...] Internal Medicine - Family Medicine [address] [place] [address] Michael Steiner DO [address] [place] [address] documented as of this encounter Visit Diagnoses Not on filedocumented in this encounter Additional Health Concerns Infection Onset Date Last Indicated Resolved Time COVID-19 Rule-Out 12/17/2023 12/17/2023 12/17/2023 1:50 PM EDT Assessment Noted Time PHQ-9 Depression Total Score: 0 11/02/19 3:42 PM EDT documented as of this encounter Care Teams Gold Beater Relationship Specialty Start Date End Date Michael Steiner DO [address] [place] [address] PCP - General Internal Medicine 12/17/23 documented as of this encounter
--- OUTSIDE RECORDS SUMMARY | 2025-02-13 11:13 | XMS_ITS | Encounter Summary ---
Author Organization [employer] tem Address [facility]-[id number] [address] [place] [address] Care Team Providers Care Binder Stripper Machine Name Role Phone Michael Steiner DO Primary Care Provider [phone] Encounter Details Date Type Department Care Team (Late st Contact Info) Description 11/06/2023 Telephone [facility] [address] [place] [address] PrestonMonica lo, PRODUCTION GEAR CUTTER Social History Tobacco Use Types Packs/Day Years Used Date Smoking Tobacco: Former Cigarettes 1 40 0 09/1981 - 09/2021 Smokeless Tobacco: Never Comments:5-6 cigerettes a da y Alcohol Use Standard Drinks/Week Comments Not Currently 0 (1 standard drink = 0.6 oz pur e alcohol) last use 15 years ago [facility] Utilities Answer Date Recorded In the past 12 months has [employer], gas, oil, or water [employer] threatened to shut off services in your [...] Answer Date Recorded Total Score 0 11/02/2023 [facility] of Occupat ional Health - [...] - Family Medicine [address] [place] [address] Michael Steiner DO [address] [place] [address] documented as of this encounter Visit Diagnoses Not on filedocumented in this encounter Additional Health Concerns Infection Onset Date Last Indicated Resolved Time COVID-19 Rule-Out 12/17/2023 12/17/2023 12/17/2023 1:50 PM EDT Assessment Noted Time PHQ-9 Depression Total Score: 0 11/02/19 3:42 PM EDT documented as of this encounter Care Teams Binder Stripper Machine Relationship Specialty Start Date End Date Michael Steiner DO [address] [place] [address] PCP - General Internal Medicine 12/17/23 documented as of this encounter
--- OUTSIDE RECORDS SUMMARY | 2025-02-13 11:14 | XMS_ITS | Encounter Summary ---
Author Organization [facility] Address [id number] [address] [place] [address] Care Team Providers Care Custodial Maintenance Worker Name Role Phone Obdulia Michael Janae CABRERA Primary Care Provider [phone] Reason for Visit * Reason Onset Date Comments Med Refill 12/02/2023 Encounter Details Date Type Department Care Team (Late st Contact Info) Description 12/02/2023 Refill [facility] Internal Medicine - Family Medicine [address] [place] [address] Tosin Reyes CMA Social History Tobacco Use [...] In the past 12 months has th [employer] electric, gas, oil, or water company threatened [...] 07/25/2023 How often do you attend [facility] or catholic services? More than 4 times [...] Internal Medicine - Family Medicine [address] [place] [address] Michael Steiner DO [address] [place] [address] documented as of this encounter Visit Diagnoses Not on filedocumented in this encounter Additional Health Concerns Infection Onset Date Last Indicated Resolved Time COVID-19 Rule-Out 12/17/2023 12/17/2023 12/17/2023 1:50 PM EDT Assessment Noted Time PHQ-9 Depression Total Score: 0 11/02/19 3:42 PM EDT documented as of this encounter Care Teams Custodial Maintenance Worker Relationship Specialty Start Date End Date Michael Steiner DO [address] [place] [address] PCP - General Internal Medicine 12/17/23 documented as of this encounter
--- OUTSIDE RECORDS SUMMARY | 2025-02-13 11:14 | XMS_ITS | Encounter Summary ---
Author Organization [employer] Address [id number] [address] [place] [address] Care Team Providers Care Harness Installer Name Role Phone Michael Steiner DO Primary Care Provider [phone] Encounter Details Date Type Department Care Team (Late st Contact Info) Description 11/04/2021 [facility]phone [facility] [address] [address] Juli Mixon RN Social History [...] often do you attend jehovah's witness or rastafarian serv ices? Never 01/09/2020 Do [...] Recorded Do you need help finding a [employer] center and/or a training program? No 01/09/2020 [...] - Family Medicine [address] [facility] [place] [address] Michael Steiner, DO [address] [facility] [address] documented as of this encounter Visit Diagnoses [...] documented as of this encounter Care Teams Harness Installer Relationship Specialty Start Date End Date Michael Steiner DO [address] [place] [address] PCP - General Internal Medicine 12/17/23 documented as of this encounter
--- OUTSIDE RECORDS SUMMARY | 2025-02-13 11:14 | XMS_ITS | Encounter Summary ---
Author Organization [facility] tem Address [id number] [address] [place] [address] Care Team Providers Care Construction Services Technician Name Role Phone Michael Steiner DO Primary Care Provider [phone] Encounter Details Date Type Department Care Team (Late st Contact Info) Description 02/12/2022 Patient Outreach [facility] - Radiation Oncology [address] [place] [address] [phone] Lissette Baez RN Social History Tobacco Use [...] week 01/09/2020 How often do you attend adventist or anglican serv ices? Never 01/09/2020 Do [...] Recorded Do you need help finding a [employer] career center and/or a training program? No [...] Internal Medicine - Family Medicine [address] [place] [address] Michael Steiner DO [address] [place] [address] documented as of this encounter Visit Diagnoses [...] as of this encounter Care Teams Construction Services Technician Relationship Specialty Start Date End Date Michael Steiner DO [address] [place] [address] PCP - General Internal Medicine 12/17/23 documented as of this encounter
--- OUTSIDE RECORDS SUMMARY | 2025-02-13 11:14 | XMS_ITS | Encounter Summary ---
Author Organization [employer] tem Address [id number] [address] [place] [address] Care Team Providers Care Applications Developer Name Role Phone Michael Steiner DO Primary Care Provider [phone] Reason for Referral * Misc (Routine) - Closed Specialty Diagnoses / Procedures Referred By Contac t Referred To Contact Diagnoses BONY (obstructive sleep apnea) Procedures [facility] Diagnostic Grupo Nguyen MD [address] [address] Phone: tel: fax: Referral ID Status Reason Start Date Expiration Date Visits Re quested Visits Authorized [id number] Closed 11/04/2021 11/04/2022 1 1 * Diagnostic Imaging (Routine) - Closed Specialty Diagnoses / Procedures Referred By Contac t Referred To Contact Radiology Diagnoses Pulmonary nodule Procedures CT chest without contrast Grupo Nguyen MD [address] [address] Phone: tel: fax: Referral ID Status Reason Start Date Expiration Date Visits Re quested Visits Authorized [id number] Closed 11/04/2021 11/04/2022 1 1 Encounter Details Date Type Department Care Team (Late st Contact Info) Description 11/04/2021 Telephone [facility] Pul[facility]/Sleep Medicine [address] [address] Juli Mixon, VICTOR M Social [...] How often do you attend amish or judaism serv ices? Never 01/09/2020 Do [...] Ct 4 months order placed Recall placed [facility] message sent PSG ordered * [...] Medicine - Family Medicine [address] [place] [address] Michael Steiner DO [address] [place] [address] documented as of this encounter Results * [facility] Diagnostic (07/17/2022 7:36 PM EDT) 07/17/2022 7:36 PM EDT Narrative DAVID - 07/18/2022 5:45 PM EDT INTERPRETED us [...] documented as of this encounter Care Teams Applications Developer Relationship Specialty Start Date End Date Michael Steiner DO [address] [place] [address] PCP - General Internal Medicine 12/17/23 documented as of this encounter
--- OUTSIDE RECORDS SUMMARY | 2025-02-13 11:14 | XMS_ITS | CCD ---
Author Organization [facility] CliniSywv Care Team Providers Care Slasher Runner Name Role Phone Hercher, Nadege L Unavailable [...] NO PCP, NO PCP Primary Care Unavailable ADRIAN DURAN Referring Unavailable NO PCP, NO PCP Primary Care Unavailable ROGER, ADRIAN Referring Unavailable NO PCP, NO PCP Primary Care Unavailable ROGER, ADRIAN Referring Unavailable NO PCP, NO PCP Primary Care Unavailable BOAP LIDIA GOPALA RAleida Admitting Unavaila ble ROMELIA LIDIA GOPALA RAleida Attending Unavaila BECKY Espinal Referring Unavailable NO PCP, NO PCP Primary Care Unavailable CEE NELSON Consulting Unavailable MARANDA PRESCOTT Consulting Unavailable Rajni Cardozo MD Primary Care Provider Rajni Cardozo DO Primary Care Provider [phone] Rajni Cardozo DO Primary Care Provider Rajni Cardozo DO Primary Care Provider [phone] No Pcp, No Pcp Primary Care Provider Unavailabl e DANIELSRAJNI L Referring Unavailable YUHAS, RAJNI L Primary Care Unavailable YUHASRAJNI L Referring Unavailable YUHAS, RAJNI L Primary Care Unavailable YUHAS, RAJNI L Referring Unavailable YUHAS, RAJNI L Primary Care Unavailable YUHAS, RAJNI L Referring Unavailable YUHAS, RAJNI Cardoso Primary Care Unavailable LUKASHASRAJNI L Referring Unavailable YUHAS, RAJNI Cardoso Primary Care Unavailable Rajni Cardozo DO Primary Care Provider [phone] Rajni Cardozo MD Primary Care Provider SYDNIE GUERRERO Attending Unavailable EUSEBIA HUERTAS Attending Unavailable ALEKSANDAREUSEBIA VASQUEZ Referring Unavailable ALEKSANDAREUSEBIA VASQUEZ Attending Unavailable ALEKSANDAREUSEBIA ACOSTA Referring Unavailable ALEKSANDAREUSEBIA ACOSTA Attending Unavailable ALEKSANDAREUSEBIA Attending Unavailable ALEKSANDAREUSEBIA ACOSTA Referring Unavailable ALEKSANDAREUSEBIA Attending Unavailable SYDNIE GUERRERO Attending Unavailable YUHASRAJNI Attending Unavailable YUHAS, RAJNI L Referring Unavailable YUHAS, RAJNI L Primary Care Unavailable GRACE MEADOWS Attending Unavailable YUHAS, RAJNI L Referring Unavailable YUHAS, RAJNI L Primary Care Unavailable YUHAS, RAJNI L Attending Unavailable YUHAS, RAJNI L Referring Unavailable YUHAS, RAJNI L Primary Care Unavailable YUHASRAJNI L Attending Unavailable YUHAS, RAJNI L Referring [...] Unavailable Dk MIJARES, Ligia Zee Attending Unavailable Gijustinitis , Andcristiano Zee Attending Unavailable Dk MIJARES, Andrius Zee Attending Unavailable Celsoitis , Andrius Zee Attending Unavailable Dk MIJARES, Andcristiano Zee Attending Unavailable MYRIAM GILES Attending Unavailable YUHAS, RAJNI L Referring Unavailable YUHAS, RAJNI L Primary Care Unavailable MYRIAM PEACOCK Attending Unavailable YUHAS, RAJNI Cardoso Referring Unavailable YUHAS, RAJNI L Primary Care Unavailable YUHAS, RAJNI L Referring Unavailable YUHAS, RAJNI Cardoso Primary Care Unavailable YUHAS, RAJNI Cardoso Referring Unavailable YUHAS, RAJNI Cardoso Primary Care Unavailable ODESSA COOK Attending Unavailable YUHAS, RAJNI Cardoso Referring Unavailable YUHAS, RAJNI Cardoso Primary Care Unavailable YUHAS, RAJNI Cardoso Attending Unavailable YUHAS, RAJNI L Referring Unavailable YUHAS, RAJNI L Primary Care Unavailable ODESSA COOK Referring Unavailable YUHAS, RAJNI Cardoso Primary Care Unavailable YUHAS, RAJNI L Primary Care Unavailable YUHAS, RAJNI Cardoso Admitting Unavailable YUHAS, RAJNI Cardoso Attending Unavailable YUHAS, RAJNI L Primary Care Unavailable YUHAS, RAJNI Cardoso Admitting Unavailable YUHAS, RAJNI Cardoso Attending Unavailable ODESSA COOK Referring Unavailable YUHAS, RAJNI Cardoso Primary Care Unavailable YUHAS, RAJNI L Referring Unavailable YUHAS, RAJNI L Primary Care Unavailable YUHAS, RAJNI L Referring Unavailable YUHAS, RAJNI L Primary Care Unavailable ODESSA COOK Attending Unavailable ODESSA COOK Referring Unavailable YUHAS, RAJNI Cardoso Primary Care Unavailable YUHAS, RAJNI Cardoso Referring Unavailable YUHAS, RAJNI L Primary Care Unavailable CYNTHIA BUCHANAN Referring Unavailable JULIANERAJNI Primary Care Unavailable DANIELRAJNI Magana Referring Unavailable DANIELRAJNI Maagna Primary Care Unavailable LUKASRAJNI FINK Admitting Unavailable DANIELRAJNI Magana Attending Unavailable DANIELRAJNI Magana Referring Unavailable DANIELRAJNI Magana Primary Care Unavailable DEBDOUGIERISA Attending Unavailable LUKASRAJNI FINK Referring Unavailable DANIELRAJNI Magana Primary Care Unavailable JULIANERAJNI Primary Care Unavailable JUAN BRUNER Attending Unavailable Juliane Rajni CABRERA Primary Care Provider Allergies Allergy Classification Reported Allergen(s) Allergy Type Date of Onset Reaction(s) Facility (1 source) morphine; Translations: [Morphine Sulfate] Drug Allergy [facility] (2 sources) penicillin; Translations: [penicillin] Drug Allergy Unknown [facility] (20 sources) Morphine; Translations: [morphine] Drug Allergy 7 Hallucinations, Other (See Comments) [facility] (20 sources) Penicillins; Translations: [Penicillins] Allergy to substance 4 Anaphylaxis [facility] (13 sources) fentaNYL; Translations: [FENTANYL] Drug Allergy 5 [...] hours if needed for mild pain Active [id number] actuat albuterol 0.09 mg/actuat metered dose [...] (LIPITOR) 80 mg tablet Indications: Atherosclerosis of [place] coronary artery of [place] heart without angina pectoris , Hx of hyperlipidemia Take 1 tablet (80 mg total) by mouth in the morning. 90 tablet 3 04/26/2024 Active Start: 04-09-2024 take 1 tablet by claudia th in the morning atorvastatin (LIPITOR) 80 mg tablet Indications: Atherosclerosis of [place] coronary artery of [place] heart without angina pectoris , Hx of [...] (LIPITOR) 80 mg tablet Indications: Atherosclerosis of [place] coronary artery of [place] heart without angina pectoris , Hx of [...] inhalation in the morning budesonide-glyc opyr-formoterol (BREZTRI AEROSPHERE) 160-9-4.8 mcg/actuation HFA aerosol inhaler Indications: Chronic obstructive pulmonary disease, unspecified COPD type ([facility]) Inhale 2 puffs in the morning and 2 puffs before bedtime. 10.7 g 10 06/25/2023 Active End: 09-21-2024 Xooffmw-Qodqlobmfmg-Gfzgdbqb ol (Breztri Aerosphere) 160-9-4.8 MCG/ACT aerosol Inhale [...] oral tablet (20 sources) Benzodiazepine Start: 09-14-2023 take 1 tablet by mouth in the morning, then take 1 tablet by mouth at bedtime clonazePAM (KlonoPIN) 0.5 mg tablet Take 1 tablet (0.5 mg total) by mouth in the morning and 1 tablet (0.5 mg total) before bedtime. 09/14/2023 Active Start: 07-26-2023 End: 07-27-2023 clonazePAM [...] 1 tablet Orally Once a day Active diclofenac sodium 50 mg / miSOPROStol 0.2 mg delayed release oral tablet (3 sources) Nonsteroidal Anti-inflammatory Drug, Prostaglandin E1 Analog Start: 01-04-2025 take 1 tablet by mouth in the morning diclofenac-miSOPROStol (ARTHROTEC 50) 50-200 mg-mcg EC tablet Take 1 tablet by mouth in the morning and 1 tablet before bedtime. 60 tablet 2 01/04/2025 Active diphen-lidocaine- mag,al-simeth (FIRST-MOUTHWASH BLM) 34-304-459-40 mg/30mL mouthwash (3 sources) Start: 01-10-2025 take 5 mL by mouth four times daily as needed swcpch-eibpzbeuz-coy,al-s imeth (FIRST-MOUTHWASH BLM) 52-481-195-40 mg/30mL mouthwash Indications: Stomatitis Take 5 mL by mouth 4 (four) times a day as needed for mucositis or mouth/gum irritation. 119 mL 1 01/10/2025 Active doxepin hydrochloride 75 mg oral capsule (20 sources) Tricyclic Antidepressant doxepin (SINEquan) 7 5 mg capsule Active End: 06-01-2023 take 3 [...] preserved ejection fraction (CMS-HCC) , Atherosclerosis of [place] coronary artery of [place] heart without angina pectoris Take 1 tablet (10 mg total) by mouth in the morning. TAKE 1 TABLET (10 MG TOTAL) BY MOUTH IN THE MORNING. 90 tablet 1 07/15/2024 Active Start: 09-01-2022 End: 10-02-2023 take 1 tablet by mouth in the morning JARDIANCE 10 mg tablet tablet Indications: Chronic heart failure with preserved ejection fraction (CMS-HCC) , Atherosclerosis of [place] coronary artery of [place] heart without angina pectoris TAKE 1 TABLET [...] guaiFENesin 600 mg extended release oral tablet (9 sources) Start: 12-06-2024 take 1 tablet by [...] Start: 02-29-2024 take 1 tablet by claudia once daily hydrOXYzine HCl (Atarax) 25 MG [...] sources) Mood Stabilizer, Anti-epileptic Agent Start: 10-07-19 take 1 tablet by mouth in the [...] the morning. 0 06/01/2023 Discontinued (Dose adjustment) [place] (1 source) [place] Active lithium carbonate 450 mg extended release oral tablet (1 source) Start: 06-22-19 19 take 900 mg by mouth once daily at bedtime [place] Carbonate Active 900 MG PO Daily at bedtime June 22, 2018 1:00am methocarbamol 750 mg oral tablet (8 sources) Muscle Relaxant End: 10-28-19 25 methocarbamol (Robaxin) 750 MG tablet TAKE 1 TABLET BY MOUTH EVERY 12 HOURS FOR 30 DAYS for 30 Active 24 hr metoprolol succinate 25 mg extended release oral tablet (12 sources) beta-Adrenergic Georgi Start: 11-29-19 take 1 tablet by mouth once daily metoprolol succinate XL (TOPROL XL) 25 mg 24 hr tablet Indications: Chronic heart failure with preserved ejection fraction ([facility]) , Pulmonary hypertension ([facility]) , Nonrheumatic tricuspid valve regurgitation , Essential hypertension , Atherosclerosis of [place] coronary artery of [place] heart without angina pectoris , History of four vessel coronary artery bypass graft , NSTEMI (non-ST elevated myocardial infarction) ([facility]) Take 1 tablet (25 mg [...] 2018 12:00am June 08, 2018 11:26am Oxygen (12 sources) oxygen Inhale 2 L/min continuously. Active pantoprazole 40 mg delayed release oral tablet (20 sources) Proton Pump Inhibitor Start: 07-01-19 End: 11-08-19 take 1 tablet by mouth once daily before breakfast pantoprazole (PROTONIX) 40 mg EC tablet Indications: Gastro-esophageal reflux disease without esophagitis Take 1 tablet (40 mg total) by mouth every morning before breakfast. 90 tablet 11/07/2024 Active take 2 tablets by mo ut every twenty-four hours Pantoprazole Sodium 40 MG 2 tablets Oral ly Once a day Active pregabalin 100 mg oral capsule (20 sources) Start: 12-06-2024 take 1 capsule by mouth at bedtime pregabalin (LYRICA) 100 mg capsule Indications: Peripheral polyneuropathy Take 1 capsule (100 mg total) by mouth before bedtime. 12/06/2024 Active Start: 03-07-2024 End: 11-23-2024 take 1 capsule [...] bedtime. 60 capsule 01/26/2024 03/07/2024 Discontinued (Reorder) propranolol hydrochloride 40 mg oral tablet (20 sources) beta-Adrenergic Georgi Start: 10-07-2024 End: 11-07-2024 take 1 tablet by mouth at bedtime, then take 1 tablet by mouth at bedtime propranoloL (INDERAL) 40 mg tablet Take 1 tablet (40 mg total) by mouth in the morning and at bedtime. TAKE 1 TABLET (40 MG TOTAL) BY MOUTH IN THE MORNING AND BEFORE BEDTIME 11/08/2024 Active Start: 07-25-2023 End: 07-26-2023 take 40 mg [...] split. Active take 1 tablet by claudia th every twelve hours Propranolol HCl 80 MG 1 tablet Orally Twice a day Active salmon calcitonin 200 unt/actuat nasal spray (20 sources) Calcitonin Start: 09-09-2023 End: 03-29-2024 take 1 spray(s) nasal route in the morning calcitonin, salmon, (Miacalcin) 200 UNIT/ACT nasal spray Administer 1 spray into affected nostril(s) in the morning. 09/09/2023 Active spironolactone 25 mg oral tablet (20 sources) Aldosterone Antagonist Start: 04-12-2024 End: 02-06-2025 take 1 tablet by mouth in the morning spironolactone (ALDACTONE) 25 mg tablet Indications: Chronic diastolic heart failure (CMS-HCC) Take 1 tablet (25 mg total) by mouth in the morning. 90 tablet 3 02/06/2025 Active Start: 11-10-2022 End: 11-02-2023 take 1 [...] 01/01/2024 01/04/2024 [facility]continued [facility] topiramate (TOPAMAX) 50 mg tablet TAKE 1 TABLET BY MOUTH TWICE A DAY FOR 30 DAYS Active End: 06-01-2023 take 1 tablet by mouth three times daily topiramate (TOPAMAX) 25 mg tablet Take 1 tablet (25 mg total) by mouth 3 (three) times a day. 0 06/01/2023 Discontinued (Dose adjustment) torsemide 20 mg oral tablet (20 sources) Loop Diuretic Start: 02-06-2025 take 2 tablets by mouth once daily torsemide (DEMADEX) 20 mg tablet Indications: Chronic diastolic heart failure (CMS-HCC) Take 2 tablets (40 mg total) by mouth daily. 60 tablet 11 02/06/2025 Active Start: 12-15-2024 End: 02-06-2025 take 3 tablets by mouth once daily torsemide (DEMADEX) 10 mg tablet Take 3 tablets (30 mg total) by mouth daily. 12/15/2024 02/06/2025 Discontinued Start: 11-28-2024 take 3 tablets by mo [facility] once daily as needed, then take 3 tablets by mouth once daily as needed torsemide (DEMADEX) 20 mg tablet Indications: Chronic heart failure with preserved ejection fraction (CMS-HCC) , Pulmonary hypertension (CMS-HCC) , Nonrheumatic tricuspid valve regurgitation , Essential hypertension , Atherosclerosis of [place] coronary artery of [place] heart without angina pectoris , History of four vessel coronary artery bypass graft , NSTEMI (non-ST elevated myocardial infarction) (CMS-HCC) Take 3 tablets (60 mg total) by [...] Start: 03-05-2023 take 4 tablets by mo [facility] in the morning, then take 2 tablets by mouth in the evening torsemide (DEMADEX) 20 mg tablet Indications: Shortness of breath , Chronic heart failure with preserved ejection fraction (CMS-HCC) TAKE 4 TABLETS BY MOUTH IN THE MORNING AND 2 TABS IN THE EVENING 540 tablet 1 03/05/2023 Active take 1 tablet by claudia once daily torsemide (Demadex) 20 MG tablet Take 20 mg by mouth Daily Active End: 12-15-2024 take 1 tablet by mouth three times daily torsemide (DEMADEX) 10 mg tablet Take 1 tablet (10 mg total) by mouth 3 (three) times a day. 12/15/2024 Discontinued take 2 tablets by mo [facility] once daily Torsemide 40 MG 2 tablets [...] 18, 2018 12:00am June 08, 2018 11:26am valsartan 40 mg oral tablet (1 source) Angiotensin 2 Receptor Georgi Start: 02-06-2025 take 1 tablet by mouth in the morning valsartan (DIOVAN) 40 mg tablet Indications: Chronic diastolic heart failure (CMS-HCC) , Pulmonary hypertension (CMS-HCC) Take 1 tablet (40 mg total) by mouth in the morning. 30 tablet 11 02/06/2025 Active vitamin b12 1 mg oral tablet (20 sources) Vitamin B12 Start: 10-16-2023 take 1 tablet by mouth in the morning cyanocobalamin 1000 MCG tablet Indications: B12 deficiency TAKE 1 TABLET (1,000 MCG TOTAL) BY MOUTH IN THE MORNING 90 tablet 1 04/13/2024 Active Vitamin D 50 MCG (1999 UT) (1 source) take 1 capsule by mouth once daily Vitamin D 50 MCG (1999) 1 capsule Orally Once a day Active vortioxetine 10 mg oral tablet (18 sources) Start: 10-03-2024 take 1 tablet by [...] Start: 08-10-2023 take 1 tablet by claudia twice daily as needed for muscle spasms [...] (Side effects) take 1 tablet by claudia th in the morning diclofenac (VOLTAREN) 75 mg [...] use. ferrous sulfate 325 mg oral tablet (12 sources) Start: 01-05-2023 End: 07-01-2023 ferrous sulfate [...] within 12 hours or as directed by . 5 patch 08/29/2023 09/24/2023 Discontinued (Therapy completed) [...] Start: 07-28-2023 take 2 tablets by mo [facility] once daily at breakfast predniSONE (DELTASONE) 20 mg tablet Take 2 tablets (40 mg total) by mouth daily with breakfast. 10 tablet 07/28/2023 Active Start: 07-28-2023 End: 07-27-2023 predniSONE (DELTASONE) table t 40 mg risperiDONE 1 mg oral tablet (1 source) Atypical Antipsychotic Start: 06-08-2018 End: 06-22-2018 take 1 mg by mouth once daily Risperidone Discontinued 1 MG PO Daily June 08, 2018 1:00am June 22, 2018 9:54am 125 ml sodium chloride 9 mg/ml prefilled syringe (4 sources) Start: 07-25-2023 End: 07-27-2023 3 mL, intravenous, Every 12 hours scheduled, First dose on 07/25/23 at 2114 Start: 07-25-2023 End: 07-27-2023 3 mL, intravenous, [...] by another clinician) take 1 capsule by [facility] once daily venlafaxine XR (Effexor XR) 150 MG 24 hr capsule Take 150 mg by mouth Daily Do not crush or chew. Active Effexor Active Problems Active Problems Problem Classification Problem Date Documented Date Episodic/Chronic Abdominal hernia (8 sources) Gastroesophageal reflux disease with hiatal hernia; Translations: [Diaphragmatic hernia without obstruction or gangrene] Onset: 11-07-2024 11-07-2024 Episodic Abdominal pain (3 sources) Right inguinal pain; Translations: [Right lower quadrant pain] Onset: 02-09-2025 08-10-2023 Episodic Acute and unspecified renal failure (5 [...] ; Translations: [Stage 3a chronic kidney disease ([facility])] Onset: 07-07-2024 Resolved: 09-20-2024 07-01-2023 Chronic Chronic [...] Coronary arteriosclerosis; Translations: [Atherosclerotic heart disease of [place] coronary artery without angina pectoris] Onset: 05-08-2013 Resolved: 03-31-2023 01-22-2024 Chronic Coronary atherosclerosis and other heart disease (9 sources) Aortocoronary bypass graft present; Translations: [Presence of aortocoronary bypass graft] Onset: 04-29-2023 Resolved: 03-15-2024 03-15-2024 Episodic Deficiency and other anemia (9 sources) Microcytic anemia; Translations: [Iron deficiency anemia, [...] Onset: 09-26-2022 01-22-2024 Chronic Headache; including migraine (13 sources) Migraine; Translations: [Migraine, unspecified, not intractable, without status migrainosus] Onset: 04-29-2023 01-22-2024 Chronic Heart valve disorders (18 sources) Tricuspid incompetence, non-rheumatic ; Translations: [Nonrheumatic tricuspid (valve) insufficiency] Onset: 11-28-2024 11-28-2024 Chronic Malaise and fatigue (20 sources) Asthenia; Translations: [Weakness] Onset: 05-28-2023 Resolved: 03-15-2024 03-15-2024 Episodic Mood disorders (20 sources) Bipolar II disorder, most recent episode major depressive; Translations: [Bipolar II disorder] Onset: 04-15-2022 01-08-2018 Chronic Nausea and vomiting (5 sources) Nausea and vomiting; Translations: [Nausea with vomiting, unspecified] Onset: 10-27-2024 10-27-2024 Episodic Nutritional deficiencies (13 sources) Vitamin D deficiency; Translations: [Vitamin D deficiency, unspecified] Onset: 04-29-2023 01-22-2024 Chronic Osteoarthritis (20 sources) Primary osteoarthritis, left shoulder; Translations: [Arthropathy, unspecified, shoulder region] Onset: 10-21-2022 01-26-2024 Chronic Other aftercare (1 source) Encounter for therapeutic drug level monitoring; Translations: [Encounter for therapeutic drug level monitoring] Onset: 12-15-2024 Episodic Other aftercare (1 source) 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; Translations: [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] Onset: 12-15-2024 Episodic Other [...] Episodic Other nutritional; endocrine; and metabolic disorders (13 sources) Obesity caused by energy imbalance; Translations: [...] 40.0-44.9, adult] Onset: 06-01-2023 Chronic Personality disorders (13 sources) Borderline personality disorder; Translations: [Borderline personality disorder] Onset: 08-28-2015 01-22-2024 Chronic Pneumonia (except that caused by tuberculosis or sexually transmitted disease) (20 sources) Pneumonia; Translations: [Pneumonia, unspecified organism] Onset: 04-15-2023 Resolved: 03-15-2024 03-15-2024 Episodic Pulmonary heart disease (18 sources) Pulmonary hypertension; Translations: [Pulmonary hypertension, unspecified] [...] Translations: [Cannabis abuse, uncomplicated] Onset: 10-16-2020 Resolved: 02-08-2025 01-16-2018 Chronic Superficial injury; contusion (1 source) [...] Other Problems Problem Classification Problem Date Documented Date Episodic/Chronic Cardiac dysrhythmias (6 sources) Ventricular tachycardia; Translations: [Ventricular tachycardia] Onset: 09-20-2024 Resolved: 09-20-2024 09-20-2024 Chronic Complications of surgical procedures or medical care (6 sources) Non-healing surgical wound; Translations: [Other complications of procedures, not elsewhere classified, initial encounter] Onset: 01-14-2023 01-14-2023 Episodic Deficiency and other anemia (14 sources) Iron deficiency anemia; Translations: [Iron deficiency anemia, unspecified] Onset: 04-29-2023 01-22-2024 Episodic Delirium, dementia, and amnestic and other cognitive disorders (20 sources) Dementia; Translations: [Unspecified dementia, mild, without behavioral disturbance, psychotic disturbance, mood disturbance, and anxiety] Onset: 10-21-2022 Resolved: 03-15-2024 03-15-2024 Chronic Diabetes mellitus without complication (20 sources) Hyperglycemia; Translations: [Hyperglycemia, unspecified] Onset: 08-14-2020 01-22-2024 Episodic Disorders of lipid metabolism (7 sources) Hyperlipidemia; Translations: [Hyperlipidemia, unspecified] Onset: 04-29-2023 Resolved: 09-20-2024 09-20-2024 Chronic Fluid and electrolyte disorders (20 sources) Hypokalemia; Translations: [Hypokalemia] Onset: 08-14-2020 Resolved: 11-05-2021 01-22-2024 Episodic Headache; including migraine (17 sources) Chronic headache disorder; Translations: [Chronic headache] Onset: 02-05-2015 01-22-2024 Episodic Mood disorders (20 sources) Mood disorders Onset: 01-04-2024 Resolved: 11-07-2024 01-04-2024 Nutritional deficiencies (5 sources) Cobalamin deficiency; Translations: [Deficiency of other specified B group vitamins] Onset: 09-30-2023 09-30-2023 Episodic Other circulatory disease (7 sources) Low blood pressure; Translations: [Other hypotension] Onset: 08-14-2020 Resolved: 11-05-2021 11-05-2021 Episodic Other connective tissue disease (13 sources) Muscle weakness; Translations: [Muscle weakness (generalized)] [...] 12-24-2023 Episodic Other inflammatory condition of skin (8 sources) Psoriasis; Translations: [Psoriasis, unspecified] Onset: 05-02-2023 Resolved: 03-15-2024 03-15-2024 Chronic Other injuries and conditions due to external causes (6 sources) Injury of breast; Translations: [Unspecified injury of thorax, initial encounter] Onset: 04-15-2022 04-15-2022 Episodic Other lower respiratory disease (8 sources) Solitary nodule of lung; Translations: [Solitary pulmonary nodule] Onset: 04-29-2023 Resolved: 03-15-2024 03-15-2024 Episodic Other lower respiratory disease (20 sources) Dyspnea; Translations: [Shortness of breath] Onset: 11-05-2021 Resolved: 07-01-2023 07-01-2023 Episodic Other lower respiratory disease (1 source) Hypoxia; Translations: [Hypoxemia] 07-27-2023 Episodic Other nervous system disorders (8 sources) Difficulty walking; Translations: [Difficulty in walking, not elsewhere classified] Onset: 04-28-2023 Resolved: 03-15-2024 03-15-2024 Chronic Other nervous system disorders (15 sources) Polyneuropathy; Translations: [Polyneuropathy, unspecified] Onset: 04-29-2023 Resolved: 03-15-2024 03-15-2024 Chronic Other nervous system disorders (1 source) Ataxia, unspecified; Translations: [Ataxia, unspecified] Onset: 01-24-2022 Episodic Other nutritional; endocrine; and metabolic disorders (20 sources) Body mass index 40+ - severely obese; Translations: [Body mass index (BMI) 40.0-44.9, adult] Onset: 06-01-2023 Resolved: 02-08-2025 06-01-2023 Chronic Other nutritional; endocrine; and metabolic disorders (20 sources) H/O: raised blood lipids; Translations: [Personal history of other endocrine, nutritional and metabolic disease] Onset: 09-26-2022 01-22-2024 Episodic Pathological fracture (2 sources) Pathological fracture of vertebra due to osteoporosis; Translations: [Other osteoporosis with current pathological fracture, vertebra(e), subsequent encounter for fracture with routine healing] 12-24-2023 Episodic Pulmonary heart disease (20 sources) Acute pulmonary embolism; Translations: [Other pulmonary embolism without acute cor pulmonale] Onset: 08-28-2023 Resolved: 07-07-2024 01-22-2024 Episodic Residual codes; unclassified (8 sources) Dependence on enabling machine or device; [...] Interpretation Reference Range Facility BASIC METABOLIC PANELon 01-25 Anion gap [Moles/Vol] 12 mmol/L Normal 5-15 [facility] Comment on above: Performed By: #### L ACTS #### [facility] ([address] [address] VIR Calcium [Mass/Vol] 9.2 mg/dL Normal 8.5-10.5 [facility] Comment on above: Performed By: #### L ACTS #### [facility] ([address] [place] [address] VIR Chloride [Moles/Vol] 97 mmol/L Low 98-109 [facility] Comment on above: Performed By: #### L ACTS #### [facility] ([address] [address] VIR CO2 [Moles/Vol] 29 mmol/L Normal 22-32 [facility] Comment on above: Performed By: #### L ACTS #### [facility] ([address] [place] [address] VIR Creatinine [Mass/Vol] 1.16 mg/dL High 0.40-1.00 [facility] Comment on above: Result Comment: METH OD TRACEABLE TO IDMS STANDARD Performed By: #### L ACTS #### [facility] ([address] [address] VIR GFR/1.73 sq M.predicted among non-blacks MDRD (S/P/Bld) [Vol rate/Area] 53 mL/min/{1.73_m2} Low >=60 [facility] Comment on above: Result Comment: eGFR not reported due to non-numeric value for Creatinine. Reported eGFR is based on the CKD-EPI 2020 equation that does not use a race coefficient. Performed By: #### L ACTS #### [facility] ([address] [address] VIR Glucose [Mass/Vol] 127 mg/dL High 65-99 [facility] Comment on above: Performed By: #### L ACTS #### [facility] ([address] [place] [address] VIR Potassium [Moles/Vol] 3.4 mmol/L Low 3.5-5.0 [facility] Comment on above: Performed By: #### L ACTS #### [facility] ([address] [place] [address] VIR Sodium [Moles/Vol] 138 mmol/L Normal 134-146 [facility] Comment on above: Performed By: #### L ACTS #### [facility] ([address] [place] [address] VIR Urea nitrogen [Mass/Vol] 13 mg/dL Normal 5-27 [facility] Comment on above: Performed By: #### L ACTS #### [facility] ([facility]) [address] [place] [address] VIR CBC WITH AUTO DIFFERENTIALon 02-09-2025 BASOPHILS ABSOLUTE COUNT (10*3/UL) BY AUTOMATED COUNT 0.2 10*3/uL Normal 0.0-0.2 [facility] Comment on above: Result Comment: This is an appended report. These results have been appended to a previously preliminary verified report. Performed By: #### L ACTS #### [facility] ([facility]) [address] [place] [address] VIR BASOPHILS RELATIVE PERCENT BY AUTOMATED COUNT 1.9 % Normal [facility] Comment on above: Result Comment: This is an appended report. These results have been appended to a previously preliminary verified report. Performed By: #### L ACTS #### [facility] ([address] [address] VIR CELLAVISION ANISOCYTOSIS IN BLOOD BY LIGHT MICROSCOPY 2+ Normal [facility] Comment on above: Result Comment: This is an appended report. These results have been appended to a previously preliminary verified report. Performed By: #### L ACTS #### [facility] ([address] [address] VIR CELLAVISION DIFFERENTIAL TYPE AUTOMATED DIFFERENTIAL Normal [facility] Comment on above: Result Comment: This is an appended report. These results have been appended to a previously preliminary verified report. Performed By: #### L ACTS #### [facility] ([address] [address] VIR CELLAVISION ELLIPTOCYTES IN BLOOD BY LIGHT MICROSCOPY 1+ Normal [facility] Comment on above: Result Comment: This is an appended report. These results have been appended to a previously preliminary verified report. Performed By: #### L ACTS #### [facility] ([address] [address] VIR Eosinophils (Bld) [#/Vol] 0.2 10*3/uL Normal 0.0-0.4 [facility] Comment on above: Result Comment: This is an appended report. These results have been appended to a previously preliminary verified report. Performed By: #### L ACTS #### [facility] ([address] [address] VIR EOSINOPHILS RELATIVE PERCENT BY AUTOMATED COUNT 1.7 % Normal [facility] Comment on above: Result Comment: This is an appended report. These results have been appended to a previously preliminary verified report. Performed By: #### L ACTS #### [facility] ([address] [address] VIR Erythrocyte distribution width (RBC) [Ratio] 22.2 % High 11.5-15 [facility] Comment on above: Performed By: #### L ACTS #### [address] [address] VIR Hematocrit (Bld) [Volume fraction] 34.6 % Low 35-47 [facility] Comment on above: Performed By: #### L ACTS #### [facility] ([address] [address] VIR Hemoglobin (Bld) [Mass/Vol] 10.6 g/dL Low 11.7-15.5 [facility] Comment on above: Performed By: #### L ACTS #### [facility] ([address] [address] VIR LYMPHOCYTES ABSOLUTE COUNT (10*3/UL) BY AUTOMATED COUNT 2.2 10*3/uL Normal 1.0-3.5 [facility] Comment on above: Result Comment: This is an appended report. These results have been appended to a previously preliminary verified report. Performed By: #### L ACTS #### [address] [address] VIR LYMPHOCYTES RELATIVE PERCENT BY AUTOMATED COUNT 23.0 % Normal [facility] Comment on above: Result Comment: This is an appended report. These results have been appended to a previously preliminary verified report. Performed By: #### L ACTS #### [facility] ([address] [address] VIR MCH (RBC) [Entitic mass] 20.0 pg Low 27-34 [facility] Comment on above: Performed By: #### L ACTS #### [facility] ([address] [address] VIR MCHC (RBC) [Mass/Vol] 30.6 g/dL Low 32-36 [facility] Comment on above: Performed By: #### L ACTS #### [facility] ([address] [address] VIR MCV (RBC) [Entitic vol] 65 fL Low 80-100 [facility] Comment on above: Performed By: #### L ACTS #### [facility] ([address] [address] VIR MONOCYTES ABSOLUTE COUNT (10*3/UL) BY AUTOMATED COUNT 0.4 10*3/uL Normal 0.0-0.9 [facility] Comment on above: Result Comment: This is an appended report. These results have been appended to a previously preliminary verified report. Performed By: #### L ACTS #### [facility] ([address] [address] VIR MONOCYTES RELATIVE PERCENT BY AUTOMATED COUNT 4.1 % Normal [facility] Comment on above: Result Comment: This is an appended report. These results have been appended to a previously preliminary verified report. Performed By: #### L ACTS #### [facility] ([address] [address] VIR NEUTROPHILS ABSOLUTE COUNT BY AUTOMATED COUNT 6.6 10*3/uL Normal 1.5-6.6 [facility] Comment on above: Result Comment: This is an appended report. These results have been appended to a previously preliminary verified report. Performed By: #### L ACTS #### [facility] ([address] [address] VIR NEUTROPHILS RELATIVE PERCENT BY AUTOMATED COUNT 69.3 % Normal [facility] Comment on above: Result Comment: This is an appended report. These results have been appended to a previously preliminary verified report. Performed By: #### L ACTS #### [facility] ([address] [address] VIR Platelet mean volume (Bld) [Entitic vol] 8.4 fL Normal 7-12 [facility] Comment on above: Performed By: #### L ACTS #### [facility] ([address] [address] VIR Platelets (Bld) [#/Vol] 360 10*3/uL Normal 150-450 [facility] Comment on above: Performed By: #### L ACTS #### [facility] ([address] [address] VIR RBC COUNT 5.30 X10E12/L High 3.8-5.2 [facility] Comment on above: Performed By: #### L ACTS #### [facility] ([address] [address] VIR WBC (Bld) [#/Vol] 9.6 10*3/uL Normal 4-11 [facility] Comment on above: Performed By: #### L ACTS #### [facility] ([address] ABDOMEN AND PELVIS W CONT on 02-09-2025 CT ABDOMEN AND PELVIS W CONT CT ABDOMEN AND PELVIS W CONT EXAM: ABDOMEN AND PELVIS CT WITH CONTRAST [...] Cesario Cooley MD on 02/09/2025 3:45 PM Normal [facility] LIPASEon 02-09-2025 Lipase [Catalytic activity/Vol] 41 U/L High 17-40 [facility] Comment on above: Performed By: #### L ACTS #### [facility] ([facility]) [address] [place] [address] VIR LIVER PANELon 02-09-2025 Albumin [Mass/Vol] 4.2 g/dL Normal 3.2-5.3 [facility] Comment on above: Performed By: #### L ACTS #### [facility] ([address] [address] VIR ALP [Catalytic activity/Vol] 89 U/L Normal 39-130 [facility] Comment on above: Performed By: #### L ACTS #### [facility] ([place] [address] [place] [address] VIR ALT [Catalytic activity/Vol] 17 U/L Normal <=31 [facility] Comment on above: Performed By: #### L ACTS #### [facility] ([address] [place] [address] VIR AST [Catalytic activity/Vol] 20 U/L Normal <=41 [facility] Comment on above: Performed By: #### L ACTS #### [facility] ([address] [place] [address] VIR Bilirubin [Mass/Vol] 0.7 mg/dL Normal 0.3-1.2 [facility] Comment on above: Performed By: #### L ACTS #### [facility] ([address] [place] [address] VIR Bilirubin.indirect [Mass/Vol] 0.1 mg/dL Normal <=0.4 [facility] Comment on above: Performed By: #### L ACTS #### [facility] ([address] [place] [address] VIR Protein [Mass/Vol] 7.9 g/dL Normal 6.0-8.0 [facility] Comment on above: Performed By: #### L ACTS #### [facility] ([address] [place] [address] VIR BASIC METABOLIC PANELon 09-0 -2024 Anion gap [Moles/Vol] 9 mmol/L Normal 5-15 [facility] Comment on above: Performed By: #### L ACTS #### [facility] ([address] [place] [address] VIR Calcium [Mass/Vol] 9.1 mg/dL Normal 8.5-10.5 [facility] Comment on above: Performed By: #### L ACTS #### [facility] ([address] [place] [address] VIR Chloride [Moles/Vol] 102 mmol/L Normal 98-109 [facility] Comment on above: Performed By: #### L ACTS #### [facility] ([address] [place] [address] VIR CO2 [Moles/Vol] 31 mmol/L Normal 22-32 [facility] Comment on above: Performed By: #### L ACTS #### [facility] ([address] [place] [address] VIR Creatinine [Mass/Vol] 1.27 mg/dL High 0.40-1.00 [facility] Comment on above: Result Comment: METH OD TRACEABLE TO IDMS STANDARD Performed By: #### L ACTS #### [facility] ([address] [address] VIR GFR/1.73 sq M.predicted among non-blacks MDRD (S/P/Bld) [Vol rate/Area] 48 mL/min/{1.73_m2} Low >=60 [facility] Comment on above: Result Comment: Repo rted eGFR is based on the CKD-EPI 2020 equation that does not use a race coefficient. Performed By: #### L ACTS #### [facility] ([address] [place] [address] VIR Glucose [Mass/Vol] 91 mg/dL Normal 65-99 [facility] Comment on above: Performed By: #### L ACTS #### [facility] ([address] [place] [address] VIR Potassium [Moles/Vol] 4.2 mmol/L Normal 3.5-5.0 [facility] Comment on above: Performed By: #### L ACTS #### [facility] ([address] [place] [address] VIR Sodium [Moles/Vol] 142 mmol/L Normal 134-146 [facility] Comment on above: Performed By: #### L ACTS #### [facility] ([facility]) [address] [place] [address] VIR Urea nitrogen [Mass/Vol] 16 mg/dL Normal 5-27 [facility] Comment on above: Performed By: #### L ACTS #### [facility] ([facility]) [address] [place] [address] VIR Basic Metabolic Panelon 090 Anion gap [Moles/Vol] 9 mmol/L 5 - 15 mmol/L [facility] Calcium [Mass/Vol] 9.1 mg/dL 8.5 - 10. 5 mg/dL [facility] Chloride [Moles/Vol] 102 mmol/L 98 - 109 mmol/L [facility] CO2 [Moles/Vol] 31 mmol/L 22 - 32 mmol/L [facility] Creatinine [Mass/Vol] 1.27 mg/dL High 0.40 - 1.00 mg/dL [facility] Comment on above: METHOD TRACEABLE TO IDMS STANDARD EGFR Non-Race Dependent 48 Low - PINF [facility] Comment on above: Reported eGFR is bas ed on the CKD-EPI 2020 equation that does not use a race coefficient. Glucose [Mass/Vol] 91 mg/dL 65 - 99 mg/dL [facility] Interpretation and review of laboratory results Abnormal [facility] Potassium [Moles/Vol] 4.2 mmol/L 3.5 - 5.0 mmol/L [facility] Sodium [Moles/Vol] 142 mmol/L 134 - 146 mmol/L [facility] Urea nitrogen [Mass/Vol] 16 mg/dL 5 - 27 mg/dL [facility] BASIC METABOLIC PANELon 08-2 Anion gap [Moles/Vol] 8 mmol/L Normal 5-15 [facility] Comment on above: Performed By: #### B MP #### [facility] ([facility]) [address] [place] [address] VIR Calcium [Mass/Vol] 9.0 mg/dL Normal 8.5-10.5 [facility] Comment on above: Performed By: #### B MP #### [facility] ([facility]) [address] [place] [address] VIR Chloride [Moles/Vol] 101 mmol/L Normal 98-109 [facility] Comment on above: Performed By: #### B MP #### [facility] ([facility]) [address] [place] [address] VIR CO2 [Moles/Vol] 33 mmol/L High 22-32 [facility] Comment on above: Performed By: #### B MP #### [facility] ([facility]) [address] [place] [address] VIR Creatinine [Mass/Vol] 1.32 mg/dL High 0.40-1.00 [facility] Comment on above: Result Comment: METH OD TRACEABLE TO IDMS STANDARD Performed By: #### B MP #### [facility] ([facility]) [address] [place] [address] VIR GFR/1.73 sq M.predicted among non-blacks MDRD (S/P/Bld) [Vol rate/Area] 46 mL/min/{1.73_m2} Low >=60 [facility] Comment on above: Result Comment: Repo rted eGFR is based on the CKD-EPI 2020 equation that does not use a race coefficient. Performed By: #### B MP #### [facility] ([facility]) [address] [place] [address] VIR Glucose [Mass/Vol] 106 mg/dL High 65-99 [facility] Comment on above: Performed By: #### B MP #### [facility] ([facility]) [address] [place] [address] VIR Potassium [Moles/Vol] 4.5 mmol/L Normal 3.5-5.0 [facility] Comment on above: Performed By: #### B MP #### [facility] ([facility]) [address] [place] [address] VIR Sodium [Moles/Vol] 142 mmol/L Normal 134-146 [facility] Comment on above: Performed By: #### B MP #### [facility] ([facility]) [address] [place] [address] VIR Urea nitrogen [Mass/Vol] 21 mg/dL Normal 5-27 [facility] Comment on above: Performed By: #### B MP #### [facility] ([facility]) [address] [place] [address] VIR Basic Metabolic Panelon 11-26 Anion gap [Moles/Vol] 8 mmol/L 5 - 15 mmol/L [facility] Calcium [Mass/Vol] 9 mg/dL 8.5 - 10. 5 mg/dL [facility] Chloride [Moles/Vol] 101 mmol/L 98 - 109 mmol/L [facility] CO2 [Moles/Vol] 33 mmol/L High 22 - 32 mmol/L [facility] Creatinine [Mass/Vol] 1.32 mg/dL High 0.40 - 1.00 mg/dL [facility] Comment on above: METHOD TRACEABLE TO IDMS STANDARD EGFR Non-Race Dependent 46 Low - PINF [facility] Comment on above: Reported eGFR is bas ed on the CKD-EPI 2020 equation that does not use a race coefficient. Glucose [Mass/Vol] 106 mg/dL High 65 - 99 mg/dL [facility] Interpretation and review of laboratory results Abnormal [facility] Potassium [Moles/Vol] 4.5 mmol/L 3.5 - 5.0 mmol/L [facility] Sodium [Moles/Vol] 142 mmol/L 134 - 146 mmol/L [facility] Urea nitrogen [Mass/Vol] 21 mg/dL 5 - 27 mg/dL [facility] BASIC METABOLIC PANELon 11-25 Anion gap [Moles/Vol] 10 mmol/L Normal 5-15 [facility] Comment on above: Performed By: #### L ACTS #### [facility] ([address] [place] [address] VIR Calcium [Mass/Vol] 9.6 mg/dL Normal 8.5-10.5 [facility] Comment on above: Performed By: #### L ACTS #### [facility] ([address] [place] [address] VIR Chloride [Moles/Vol] 98 mmol/L Normal 98-109 [facility] Comment on above: Performed By: #### L ACTS #### [facility] ([address] [address] VIR CO2 [Moles/Vol] 35 mmol/L High 22-32 [facility] Comment on above: Performed By: #### L ACTS #### [facility] ([address] [address] VIR Creatinine [Mass/Vol] 1.47 mg/dL High 0.40-1.00 [facility] Comment on above: Result Comment: METH OD TRACEABLE TO IDMS STANDARD Performed By: #### L ACTS #### [facility] ([address] [address] VIR GFR/1.73 sq M.predicted among non-blacks MDRD (S/P/Bld) [Vol rate/Area] 40 mL/min/{1.73_m2} Low >=60 [facility] Comment on above: Result Comment: Repo rted eGFR is based on the CKD-EPI 2020 equation that does not use a race coefficient. Performed By: #### L ACTS #### [facility] ([address] [address] VIR Glucose [Mass/Vol] 110 mg/dL High 65-99 [facility] Comment on above: Performed By: #### L ACTS #### [facility] ([address] [place] [address] VIR Potassium [Moles/Vol] 4.5 mmol/L Normal 3.5-5.0 [facility] Comment on above: Performed By: #### L ACTS #### [facility] ([address] [place] [address] VIR Sodium [Moles/Vol] 143 mmol/L Normal 134-146 [facility] Comment on above: Performed By: #### L ACTS #### [facility] ([address] [place] [address] VIR Urea nitrogen [Mass/Vol] 23 mg/dL Normal 5-27 [facility] Comment on above: Performed By: #### L ACTS #### [facility] ([address] [place] [address] VIR BASIC METABOLIC PANELon 11-25 Anion gap [Moles/Vol] 6 mmol/L Normal 5-15 [facility] Comment on above: Performed By: #### V BG #### [facility] ([address] [place] [address] VIR Calcium [Mass/Vol] 9.2 mg/dL Normal 8.5-10.5 [facility] Comment on above: Performed By: #### V BG #### [facility] ([address] [place] [address] VIR Chloride [Moles/Vol] 103 mmol/L Normal 98-109 [facility] Comment on above: Performed By: #### V BG #### [facility] ([address] [place] [address] VIR CO2 [Moles/Vol] 34 mmol/L High 22-32 [facility] Comment on above: Performed By: #### V BG #### [facility] ([place] [address] [place] [address] VIR Creatinine [Mass/Vol] 0.84 mg/dL Normal 0.40-1.00 [facility] Comment on above: Result Comment: METH OD TRACEABLE TO IDMS STANDARD Performed By: #### V BG #### [facility] ([address] [address] VIR GFR/1.73 sq M.predicted among non-blacks MDRD (S/P/Bld) [Vol rate/Area] 79 mL/min/{1.73_m2} Normal >=60 [facility] Comment on above: Result Comment: eGFR not reported due to non-numeric value for Creatinine. Reported eGFR is based on the CKD-EPI 2020 equation that does not use a race coefficient. Performed By: #### V BG #### [address] [address] VIR Glucose [Mass/Vol] 126 mg/dL High 65-99 [facility] Comment on above: Performed By: #### V BG #### [facility] ([address] [address] VIR Potassium [Moles/Vol] 4.3 mmol/L Normal 3.5-5.0 [facility] Comment on above: Performed By: #### V BG #### [address] [place] [address] VIR Sodium [Moles/Vol] 143 mmol/L Normal 134-146 [facility] Comment on above: Performed By: #### V BG #### [facility] ([address] [address] VIR Urea nitrogen [Mass/Vol] 24 mg/dL Normal 5-27 [facility] Comment on above: Performed By: #### V BG #### [facility] ([address] [address] VIR BLOOD GAS, VENOUSon 12-07-19 25 BASE,EXCESS 10.0 mmol/L High 0.0-2.0 [facility] Comment on above: Performed By: #### L ACTS #### [facility] ([address] [place] [address] VIR HCO3 (Bld) [Moles/Vol] 37.4 mmol/L High 20.0-24.0 [facility] Comment on above: Performed By: #### L ACTS #### [facility] ([address] [place] [address] VIR Oxygen saturation in Blood 80.0 % Normal [facility] Comment on above: Performed By: #### L ACTS #### [facility] ([address] [address] VIR PCO2 VENOUS 63.6 mmHg High 35.0-50.0 [facility] Comment on above: Performed By: #### L ACTS #### [facility] ([address] [place] [address] VIR PH VENOUS 7.378 Normal 7.320-7.42 0 [facility] Comment on above: Performed By: #### L ACTS #### [facility] ([address] [address] VIR PO2 VENOUS 47 mmHg Normal 30-50 [facility] Comment on above: Performed By: #### L ACTS #### [facility] ([address] [address] VIR POC RAVINDRA'S TEST N/A Normal [facility] Comment on above: Performed By: #### L ACTS #### [facility] ([address] [place] [address] VIR SAMPLE SITE N/A Normal [facility] Comment on above: Performed By: #### L ACTS #### [facility] ([address] [place] [address] VIR SAMPLE TYPE VENOUS Normal [facility] Comment on above: Performed By: #### L ACTS #### [facility] ([address] [place] [address] VIR SOURCE OF OXYGEN NC Normal [facility] Comment on above: Performed By: #### L ACTS #### [facility] ([address] [place] [address] VIR BLOOD GAS, VENOUS VBG BLOOD GAS, VENOU S Cancelled Normal [facility] PHOSPHORUSon 12-06-2024 Phosphate [Mass/Vol] 3.1 mg/dL Normal 2.4-4.9 [facility] Comment on above: Performed By: #### L ACTS #### [facility] ([address] [place] [address] VIR BASIC METABOLIC PANELon 11-25 Anion gap [Moles/Vol] 7 mmol/L Normal 5-15 [facility] Comment on above: Performed By: #### V BG #### [facility] ([address] [place] [address] VIR Calcium [Mass/Vol] 8.8 mg/dL Normal 8.5-10.5 [facility] Comment on above: Performed By: #### V BG #### [facility] ([address] [place] [address] VIR Chloride [Moles/Vol] 96 mmol/L Low 98-109 [facility] Comment on above: Performed By: #### V BG #### [facility] ([address] [place] [address] VIR CO2 [Moles/Vol] 34 mmol/L High 22-32 [facility] Comment on above: Performed By: #### V BG #### [facility] ([address] [place] [address] VIR Creatinine [Mass/Vol] 0.91 mg/dL Normal 0.40-1.00 [facility] Comment on above: Result Comment: METH OD TRACEABLE TO IDMS STANDARD Performed By: #### V BG #### [facility] ([address] [address] VIR GFR/1.73 sq M.predicted among non-blacks MDRD (S/P/Bld) [Vol rate/Area] 71 mL/min/{1.73_m2} Normal >=60 [facility] Comment on above: Result Comment: eGFR not reported due to non-numeric value for Creatinine. Reported eGFR is based on the CKD-EPI 2020 equation that does not use a race coefficient. Performed By: #### V BG #### [facility] ([address] [address] VIR Glucose [Mass/Vol] 140 mg/dL High 65-99 [facility] Comment on above: Performed By: #### V BG #### [facility] ([address] [address] VIR Potassium [Moles/Vol] 4.0 mmol/L Normal 3.5-5.0 [facility] Comment on above: Performed By: #### V BG #### [address] [address] VIR Sodium [Moles/Vol] 137 mmol/L Normal 134-146 [facility] Comment on above: Performed By: #### V BG #### [address] [address] VIR Urea nitrogen [Mass/Vol] 19 mg/dL Normal 5-27 [facility] Comment on above: Performed By: #### V BG #### [address] [address] VIR BEDSIDE GLUCOSEon 12-05-2024 Glucose [Mass/Vol] 147 mg/dL High 65-99 [facility] Comment on above: Performed By: #### V BG #### [facility] [facility] ([address] [place] [address] VIR Glucose [Mass/Vol] 144 mg/dL High 65-99 [facility] Comment on above: Performed By: #### V BG #### [facility] ([address] [place] [address] VIR BLOOD GAS, VENOUSon 12-06-19 25 BASE,EXCESS 7.0 mmol/L High 0.0-2.0 [facility] Comment on above: Performed By: #### V BG #### [facility] ([address] [place] [address] VIR HCO3 (Bld) [Moles/Vol] 34.7 mmol/L High 20.0-24.0 [facility] Comment on above: Performed By: #### V BG #### [facility] ([address] [place] [address] VIR Oxygen saturation in Blood 81.0 % Normal [facility] Comment on above: Performed By: #### V BG #### [facility] ([address] [place] [address] VIR PCO2 VENOUS 64.3 mmHg High 35.0-50.0 [facility] Comment on above: Performed By: #### V BG #### [facility] ([address] [place] [address] VIR PH VENOUS 7.340 Normal 7.320-7.42 0 [facility] Comment on above: Performed By: #### V BG #### [facility] ([address] [place] [address] VIR PO2 VENOUS 50 mmHg Normal 30-50 [facility] Comment on above: Performed By: #### V BG #### [facility]) [address] [place], [place] [address]. [place] [address] VIR POC RAVINDRA'S TEST N/A Normal [facility] Comment on above: Performed By: #### V BG #### [facility] ([facility]) [address] [place] [address]. [place] [address] VIR SAMPLE SITE N/A Normal [facility] Comment on above: Performed By: #### V BG #### [facility] ([facility]) [address] [place] [address] VIR SAMPLE TYPE VENOUS Normal [facility] Comment on above: Performed By: #### V BG #### [facility] ([address] [place] [address] VIR SOURCE OF OXYGEN NC Normal [facility] Comment on above: Performed By: #### V BG #### [facility] ([address] [place] [address] VIR BLOOD GAS, VENOUS VBG BLOOD GAS, VENOU S Cancelled Normal [facility] CBC WITH AUTO DIFFERENTIALon 12-05-2024 BASOPHILS ABSOLUTE COUNT (10*3/UL) BY AUTOMATED COUNT 0.0 10*3/uL Normal 0.0-0.2 [facility] Comment on above: Result Comment: This is an appended report. These results have been appended to a previously preliminary verified report. Performed By: #### V BG #### [facility] ([address] [place] [address] VIR BASOPHILS RELATIVE PERCENT BY AUTOMATED COUNT 0.2 % Normal [facility] Comment on above: Result Comment: This is an appended report. These results have been appended to a previously preliminary verified report. Performed By: #### V BG #### [facility] ([address] [place] [address] VIR CELLAVISION ANISOCYTOSIS IN BLOOD BY LIGHT MICROSCOPY 2+ Normal [facility] Comment on above: Result Comment: This is an appended report. These results have been appended to a previously preliminary verified report. Performed By: #### V BG #### [facility] ([address] [address] VIR CELLAVISION DIFFERENTIAL TYPE AUTOMATED DIFFERENTIAL Normal [facility] Comment on above: Result Comment: This is an appended report. These results have been appended to a previously preliminary verified report. Performed By: #### V BG #### [facility] ([address] [address] VIR CELLAVISION MICROCYTES IN BLOOD BY LIGHT MICROSCOPY 2+ Normal [facility] Comment on above: Result Comment: This is an appended report. These results have been appended to a previously preliminary verified report. Performed By: #### V BG #### [address] [address] VIR CELLAVISION RBC MORPHOLOGY abnormal Normal [facility] Comment on above: Result Comment: This is an appended report. These results have been appended to a previously preliminary verified report. Performed By: #### V BG #### [facility] ([address] [address] VIR CELLAVISION STOMATOCYTES IN BLOOD BY LIGHT MICROSCOPY 3+ Normal [facility] Comment on above: Result Comment: This is an appended report. These results have been appended to a previously preliminary verified report. Performed By: #### V BG #### [facility] ([address] [address] VIR Eosinophils (Bld) [#/Vol] 0.0 10*3/uL Normal 0.0-0.4 [facility] Comment on above: Result Comment: This is an appended report. These results have been appended to a previously preliminary verified report. Performed By: #### V BG #### [facility] ([address] [address] VIR EOSINOPHILS RELATIVE PERCENT BY AUTOMATED COUNT 0.0 % Normal [facility] Comment on above: Result Comment: This is an appended report. These results have been appended to a previously preliminary verified report. Performed By: #### V BG #### [facility] ([address] [address] VIR Erythrocyte distribution width (RBC) [Ratio] 19.6 % High 11.5-15 [facility] Comment on above: Performed By: #### V BG #### [facility] ([address] [address] VIR Hematocrit (Bld) [Volume fraction] 27.7 % Low 35-47 [facility] Comment on above: Performed By: #### V BG #### [facility] ([address] [address] VIR Hemoglobin (Bld) [Mass/Vol] 8.2 g/dL Low 11.7-15.5 [facility] Comment on above: Performed By: #### V BG #### [facility] ([address] [address] VIR LYMPHOCYTES ABSOLUTE COUNT (10*3/UL) BY AUTOMATED COUNT 0.5 10*3/uL Low 1.0-3.5 [facility] Comment on above: Result Comment: This is an appended report. These results have been appended to a previously preliminary verified report. Performed By: #### V BG #### [facility] ([address] [address] VIR LYMPHOCYTES RELATIVE PERCENT BY AUTOMATED COUNT 5.3 % Normal [facility] Comment on above: Result Comment: This is an appended report. These results have been appended to a previously preliminary verified report. Performed By: #### V BG #### [facility] ([address] [address] VIR MCH (RBC) [Entitic mass] 19.4 pg Low 27-34 [facility] Comment on above: Performed By: #### V BG #### [facility] ([address] [address] VIR MCHC (RBC) [Mass/Vol] 29.7 g/dL Low 32-36 [facility] Comment on above: Performed By: #### V BG #### [facility] ([address] [address] VIR MCV (RBC) [Entitic vol] 65 fL Low 80-100 [facility] Comment on above: Performed By: #### V BG #### [facility] ([address] [address] VIR MONOCYTES ABSOLUTE COUNT (10*3/UL) BY AUTOMATED COUNT 0.2 10*3/uL Normal 0.0-0.9 [facility] Comment on above: Result Comment: This is an appended report. These results have been appended to a previously preliminary verified report. Performed By: #### V BG #### [facility] ([address] [address] VIR MONOCYTES RELATIVE PERCENT BY AUTOMATED COUNT 2.3 % Normal [facility] Comment on above: Result Comment: This is an appended report. These results have been appended to a previously preliminary verified report. Performed By: #### V BG #### [facility] ([address] [address] VIR NEUTROPHILS ABSOLUTE COUNT BY AUTOMATED COUNT 8.3 10*3/uL High 1.5-6.6 [facility] Comment on above: Result Comment: This is an appended report. These results have been appended to a previously preliminary verified report. Performed By: #### V BG #### [facility] ([address] [address] VIR NEUTROPHILS RELATIVE PERCENT BY AUTOMATED COUNT 92.2 % Normal [facility] Comment on above: Result Comment: This is an appended report. These results have been appended to a previously preliminary verified report. Performed By: #### V BG #### [facility] ([address] [address] VIR Platelet mean volume (Bld) [Entitic vol] 7.3 fL Normal 7-12 [facility] Comment on above: Performed By: #### V BG #### [facility] ([address] [address] VIR Platelets (Bld) [#/Vol] 238 10*3/uL Normal 150-450 [facility] Comment on above: Performed By: #### V BG #### [facility] ([address] [address] VIR RBC COUNT 4.24 X10E12/L Normal 3.8-5.2 [facility] Comment on above: Performed By: #### V BG #### [facility] ([address] [address] VIR WBC (Bld) [#/Vol] 9.1 10*3/uL Normal 4-11 [facility] Comment on above: Performed By: #### V BG #### [facility] ([address] [address] VIR LOWER RESP CULTURE SPUTUM CU LTURE INC GRAM STAINon 12-05-2024 LOWER RESP CULTURE SPUTUM CULTURE INC GRAM STAIN CULTURE RESULTS CULTURE CANCELLED. SPECIMEN DOES NOT MEET CRITERIA FOR CULTURING. PLEASE REORDER AND RESUBMIT. GRAM STAIN >25 Squamous Epithelial Cells/LPF with Mixed Bacterial Types Seen. Regarded as Saliva not Sputum Normal [facility] Comment on above: Performed By: #### L ACTS #### [facility] ([address] [address] VIR PHOSPHORUSon 12-05-2024 Phosphate [Mass/Vol] 2.3 mg/dL Low 2.4-4.9 [facility] Comment on above: Performed By: #### V BG #### [facility] ([facility]) [address] [place] [address]. [place] [address] VIR B-TYPE NATRIURETIC PEPTIDEon 12-04-2024 Natriuretic peptide B (Bld) [Mass/Vol] 259 pg/mL High <=100 [facility] Comment on above: Performed By: #### B MP #### [facility] ([facility]) [address] [place] [address] VIR BEDSIDE GLUCOSEon 12-04-2024 Glucose [Mass/Vol] 125 mg/dL High 65-99 [facility] Comment on above: Performed By: #### V BG #### [facility] ([facility]) [address] [place] [address]. [place] [address] VIR Glucose [Mass/Vol] 165 mg/dL High [facility]99 [facility] Comment on above: Performed By: #### V BG #### [facility] ([facility]) [address] [place] [address] [place] [address] VIR Glucose [Mass/Vol] 196 mg/dL High 6599 [facility] Comment on above: Performed By: #### B MP #### [facility] ([facility]) [address] [place] [address] VIR Glucose [Mass/Vol] 167 mg/dL High 65-99 [facility] Comment on above: Performed By: #### B MP #### [facility] ([facility]) [address] [place] [address] VIR BLOOD GAS, VENOUSon 12-05-19 25 BASE,EXCESS 7.0 mmol/L High 0.0-2.0 [facility] Comment on above: Performed By: #### B MP #### [facility] ([facility]) [address] [place] [address] VIR HCO3 (Bld) [Moles/Vol] 36.1 mmol/L High 20.0-24.0 [facility] Comment on above: Performed By: #### B MP #### [facility] ([facility]) [address] [place] [address] VIR INSP. O2 CONC. 50 % Normal [facility] Comment on above: Performed By: #### B MP #### [facility] ([facility]) [address] [place] [address] VIR Oxygen saturation in Blood 38.0 % Normal [facility] Comment on above: Performed By: #### B MP #### [facility] ([facility]) [address] [place] [address] VIR PCO2 VENOUS 80.0 mmHg High 35.0-50.0 [facility] Comment on above: Performed By: #### B MP #### [facility] ([facility]) [address] [place] [address] VIR PH VENOUS 7.263 Low 7.320-7.42 0 [facility] Comment on above: Performed By: #### B MP #### [facility] ([facility]) [address] [place] [address] VIR PO2 VENOUS 27 mmHg Low 30-50 [facility] Comment on above: Performed By: #### B MP #### [facility] ([facility]) [address] [place] [address] VIR POC RAVINDRA'S TEST N/A Normal [facility] Comment on above: Performed By: #### B MP #### [facility] ([facility]) [address] [place] [address] VIR SAMPLE SITE N/A [facility] Comment on above: Performed By: #### B MP #### [facility] ([facility]) [address] [place] [address] VIR SAMPLE TYPE VENOUS Normal [facility] Comment on above: Performed By: #### B MP #### [facility] ([facility]) [address] [place] [address] VIR SOURCE OF OXYGEN NC Normal [facility] Comment on above: Performed By: #### B MP #### [facility] ([facility]) [address] [place] [address] VIR BLOOD GAS, VENOUS VBG BLOOD GAS, VENOU S Cancelled Normal [facility] BASE,EXCESS 6.0 mmol/L High 0.0-2.0 [facility] Comment on above: Performed By: #### V BG ####[facility] ([facility] [place] [address] VIR HCO3 (Bld) [Moles/Vol] 38.1 mmol/L High 20.0-24.0 [facility] Comment on above: Performed By: #### V BG ####[address] [place] [address] VIR INSP. O2 CONC. 40 % Normal [facility] Comment on above: Performed By: #### V BG ####[address] [place] [address] VIR Oxygen saturation in Blood 38.0 % Normal [facility] Comment on above: Performed By: #### V BG ####[facility] ([address] [place] [address] VIR PCO2 VENOUS 100.3 mmHg High 35.0-50.0 [facility] Comment on above: Performed By: #### V BG ####[address] [place] [address] VIR PH VENOUS 7.187 Low 7.320-7.42 0 [facility] Comment on above: Performed By: #### V BG ####[facility] ([address] [place] [address] VIR PO2 VENOUS 29 mmHg Low 30-50 [facility] Comment on above: Performed By: #### V BG ####[facility] ([facility])[address] [place] [address] VIR POC RAVINDRA'S TEST N/A Normal [facility] Comment on above: Performed By: #### V BG ####[facility] ([facility])[address] [place] [address] [place] [address] VIR SAMPLE SITE N/A Normal [facility] Comment on above: Performed By: #### V BG ####[facility] ([facility])[address] [place] [address] [place] [address] VIR SAMPLE TYPE VENOUS Normal [facility] Comment on above: Performed By: #### V BG ####[facility] ([address] [place] [address] VIR SOURCE OF OXYGEN NPPV Normal [facility] Comment on above: Performed By: #### V BG ####[facility] ([facility])[address] [place] [address] [place] [address] VIR BLOOD GAS, VENOUS VBG BLOOD GAS, VENOU S Cancelled Normal [facility] CBC WITH AUTO DIFFERENTIALon 12-04-2024 Basophilic stippling LM Ql (Bld) 1+ Normal [facility] Comment on above: Result Comment: This is an appended report. These results have been appended to a previously preliminary verified report. Performed By: #### B MP #### [facility] ([facility]) [address] [place] [address] VIR BASOPHILS ABSOLUTE COUNT (10*3/UL) BY AUTOMATED COUNT 0.0 10*3/uL Normal 0.0-0.2 [facility] Comment on above: Result Comment: This is an appended report. These results have been appended to a previously preliminary verified report. Performed By: #### B MP #### [facility] ([facility]) [address] [place] [address] VIR BASOPHILS RELATIVE PERCENT BY AUTOMATED COUNT 0.2 % Normal [facility] Comment on above: Result Comment: This is an appended report. These results have been appended to a previously preliminary verified report. Performed By: #### B MP #### [facility] ([facility]) [address] [place] [address] VIR CELLAVISION DIFFERENTIAL TYPE AUTOMATED DIFFERENTIAL Normal [facility] Comment on above: Result Comment: This is an appended report. These results have been appended to a previously preliminary verified report. Performed By: #### B MP #### [facility] ([facility]) [address] [place] [address] VIR CELLAVISION ELLIPTOCYTES IN BLOOD BY LIGHT MICROSCOPY 1+ Normal [facility] Comment on above: Result Comment: This is an appended report. These results have been appended to a previously preliminary verified report. Performed By: #### B MP #### [facility] ([facility]) [address] [place] [address] VIR CELLAVISION POLYCHROMASIA IN BLOOD BY LIGHT MICROSCOPY 1+ Normal [facility] Comment on above: Result Comment: This is an appended report. These results have been appended to a previously preliminary verified report. Performed By: #### B MP #### [facility] ([facility]) [address] [place] [address] VIR CELLAVISION STOMATOCYTES IN BLOOD BY LIGHT MICROSCOPY 1+ Normal [facility] Comment on above: Result Comment: This is an appended report. These results have been appended to a previously preliminary verified report. Performed By: #### B MP #### [facility] ([facility]) [address] [place] [address] VIR Eosinophils (Bld) [#/Vol] 0.0 10*3/uL Normal 0.0-0.4 [facility] Comment on above: Result Comment: This is an appended report. These results have been appended to a previously preliminary verified report. Performed By: #### B MP #### [facility] ([facility]) [address] [place] [address] VIR EOSINOPHILS RELATIVE PERCENT BY AUTOMATED COUNT 0.0 % Normal [facility] Comment on above: Result Comment: This is an appended report. These results have been appended to a previously preliminary verified report. Performed By: #### B MP #### [facility] ([facility]) [address] [place] [address] VIR Erythrocyte distribution width (RBC) [Ratio] 20.2 % High 11.5-15 [facility] Comment on above: Performed By: #### B MP #### [facility] ([facility]) [address] [facility] [address] [address] [place] [address] VIR Hematocrit (Bld) [Volume fraction] 34.4 % Low 35-47 [facility] Comment on above: Performed By: #### B MP #### [facility] ([facility]) [address] [place] [address] VIR Hemoglobin (Bld) [Mass/Vol] 9.8 g/dL Low 11.7-15.5 [facility] Comment on above: Performed By: #### B MP #### [facility] ([facility]) [address] [address] [address] [place] [address] VIR LYMPHOCYTES ABSOLUTE COUNT (10*3/UL) BY AUTOMATED COUNT 0.5 10*3/uL Low 1.0-3.5 [facility] Comment on above: Result Comment: This is an appended report. These results have been appended to a previously preliminary verified report. Performed By: #### B MP #### [facility] ([facility]) [address] [address] [address] [place] [address] VIR LYMPHOCYTES RELATIVE PERCENT BY AUTOMATED COUNT 3.7 % Normal [facility] Comment on above: Result Comment: This is an appended report. These results have been appended to a previously preliminary verified report. Performed By: #### B MP #### [facility] ([facility]) [address] [place] [address] VIR MCH (RBC) [Entitic mass] 19.1 pg Low 27-34 [facility] Comment on above: Performed By: #### B MP #### [facility] ([facility]) [address] [place] [address] VIR MCHC (RBC) [Mass/Vol] 28.5 g/dL Low 32-36 [facility] Comment on above: Performed By: #### B MP #### [facility] ([facility]) [address] [place] [address] VIR MCV (RBC) [Entitic vol] 67 fL Low 80-100 [facility] Comment on above: Performed By: #### B MP #### [facility] ([facility]) [address] [place] [address] VIR MONOCYTES ABSOLUTE COUNT (10*3/UL) BY AUTOMATED COUNT 0.9 10*3/uL Normal 0.0-0.9 [facility] Comment on above: Result Comment: This is an appended report. These results have been appended to a previously preliminary verified report. Performed By: #### B MP #### [facility] ([facility]) [address] [place] [address] VIR MONOCYTES RELATIVE PERCENT BY AUTOMATED COUNT 6.7 % Normal [facility] Comment on above: Result Comment: This is an appended report. These results have been appended to a previously preliminary verified report. Performed By: #### B MP #### [facility] ([facility]) [address] [place] [address] VIR NEUTROPHILS ABSOLUTE COUNT BY AUTOMATED COUNT 12.0 10*3/uL High 1.5-6.6 [facility] Comment on above: Result Comment: This is an appended report. These results have been appended to a previously preliminary verified report. Performed By: #### B MP #### [facility] ([facility]) [address] [place] [address] VIR NEUTROPHILS RELATIVE PERCENT BY AUTOMATED COUNT 89.4 % Normal [facility] Comment on above: Result Comment: This is an appended report. These results have been appended to a previously preliminary verified report. Performed By: #### B MP #### [facility] ([facility]) [address] [place] [address] VIR Platelet mean volume (Bld) [Entitic vol] 6.9 fL Low 7-12 [facility] Comment on above: Performed By: #### B MP #### [facility] ([facility]) [address] [place] [address] VIR Platelets (Bld) [#/Vol] 354 10*3/uL Normal 150-450 [facility] Comment on above: Performed By: #### B MP #### [facility] ([facility]) [address] [place] [address] VIR RBC COUNT 5.13 X10E12/L Normal 3.8-5.2 [facility] Comment on above: Performed By: #### B MP #### [facility] ([facility]) [address] [place] [address] VIR WBC (Bld) [#/Vol] 13.5 10*3/uL High 4-11 [facility] Comment on above: Performed By: #### B MP #### [facility] ([facility]) [address] [place] [address] VIR COMPREHENSIVE METABOLIC PANE Meek 12-04-2024 Albumin [Mass/Vol] 3.7 g/dL Normal 3.2-5.3 [facility] Comment on above: Performed By: #### C MP ####[facility] ([facility])[address] [place] [address].[place] [address] VIR ALP [Catalytic activity/Vol] 138 U/L High 39-130 [facility] Comment on above: Performed By: #### C MP ####[facility] ([facility])[address] [place] [address].[place] [address] VIR ALT [Catalytic activity/Vol] 36 U/L High <=31 [facility] Comment on above: Performed By: #### C MP ####[facility] ([facility])[address] [place] [address] VIR Anion gap [Moles/Vol] 9 mmol/L Normal 5-15 [facility] Comment on above: Performed By: #### C MP ####[facility] ([place] [address] [place] [address] VIR AST [Catalytic activity/Vol] 38 U/L Normal <=41 [facility] Comment on above: Performed By: #### C MP ####[facility] ([place] [address] [place] [address] VIR Bilirubin [Mass/Vol] 0.3 mg/dL Normal 0.3-1.2 [facility] Comment on above: Performed By: #### C MP ####[facility] ([place] [address] [place] [address] VIR Calcium [Mass/Vol] 9.0 mg/dL Normal 8.5-10.5 [facility] Comment on above: Performed By: #### C MP ####[facility] ([place] [address] [place] [address] VIR Chloride [Moles/Vol] 96 mmol/L Low 98-109 [facility] Comment on above: Performed By: #### C MP ####[facility] ([facility] [place] [address] VIR CO2 [Moles/Vol] 36 mmol/L High 22-32 [facility] Comment on above: Performed By: #### C MP ####[facility] ([place] [address] [place] [address] VIR Creatinine [Mass/Vol] 1.45 mg/dL High 0.40-1.00 [facility] Comment on above: Result Comment: METH OD TRACEABLE TO IDMS STANDARD Performed By: #### C MP ####[facility] ([address] [place] [address] VIR GFR/1.73 sq M.predicted among non-blacks MDRD (S/P/Bld) [Vol rate/Area] 41 mL/min/{1.73_m2} Low >=60 [facility] Comment on above: Result Comment: eGFR not reported due to non-numeric value for Creatinine. Reported eGFR is based on the CKD-EPI 2020 equation that does not use a race coefficient. Performed By: #### C MP ####[facility] ([address] [address] VIR Glucose [Mass/Vol] 133 mg/dL High 65-99 [facility] Comment on above: Performed By: #### C MP ####[facility] ([address] [address] VIR Potassium [Moles/Vol] 4.2 mmol/L Normal 3.5-5.0 [facility] Comment on above: Performed By: #### C MP ####[facility] ([address] [address] VIR Protein [Mass/Vol] 7.8 g/dL Normal 6.0-8.0 [facility] Comment on above: Performed By: #### C MP ####[facility] ([address] [address] VIR Sodium [Moles/Vol] 141 mmol/L Normal 134-146 [facility] Comment on above: Performed By: #### C MP ####[facility] ([address] [place] [address] VIR Urea nitrogen [Mass/Vol] 21 mg/dL Normal 5-27 [facility] Comment on above: Performed By: #### C MP ####[facility] ([facility])[address] [place] [address] VIR LACTATE W/ REFLEXon 12-05-19 25 LACTATE W/REFLEX 1.0 mmol/L Normal 0.4-2.0 [facility] Comment on above: Order Comment: Resul t did not trigger repeat Lactate,re-order if needed. Performed By: #### L ACTS ####[facility] ([facility])[address] [place] [address] VIR PHOSPHORUSon 12-04-2024 Phosphate [Mass/Vol] 6.1 mg/dL High 2.4-4.9 [facility] Comment on above: Performed By: #### B MP #### [facility] ([facility]) [address] [place] [address] VIR PROCALCITONINon 12-04-2024 PROCALCITONIN 0.13 ng/mL High <0.05 [facility] Comment on above: Order Comment: <0.50 ng/mL - Low risk of severe sepsis and/or septic shock.<2.00 ng/mL - Recommend retesting within 6-24 hours.>2.00 ng/mL - High risk of sepsis and/or septic shock. Performed By: #### B MP #### [facility] ([facility]) [address] [place] [address] VIR TROP I, HIGH SENSITIVITY 1 H OURon 12-04-2024 TROPONIN I, HIGH SENSITIVITY 17 ng/L High <16 [facility] Comment on above: Order Comment: [place] tions of hs-Troponin may be due to causesother than myocardial ischemia.Recommend serial hs-Troponin testing be performed.For the initial evaluation and management of chestpain patients, refer to the algorithms linked below.Emergency Patient:[email or web address] Performed By: #### B MP #### [facility] ([facility]) [address] [place] [address] VIR TROPONIN I, HIGH SENSITIVITY 0 HOURon 12-04-2024 TROPONIN I, HIGH SENSITIVITY 17 ng/L High <16 [facility] Comment on above: Performed By: #### B MP #### [facility] ([facility]) [address] [place] [address] VIR XR CHEST 1 VWon 12-04-2024 XR CHEST 1 VW XR CHEST 1 VW Single view chest History:SOB Difficulty breathing, shortness of breath Comparison: 12/03/2024 Findings: Single portable view of the chest. Right lower lung atelectasis versus pneumonia, stable. Stable cardiac mediastinal silhouette. Prior median sternotomy. Impression: No significant interval change. Finalized by Victor Hugo Kim MD on 12/04/2024 7:13 AM Normal [facility] B-TYPE NATRIURETIC PEPTIDEon 12-03-2024 Natriuretic peptide B (Bld) [Mass/Vol] 196 pg/mL High <=100 [facility] Comment on above: Performed By: #### B BABBITTER ####[facility] ([facility])[address] [place] [address].[place] [address] VIR BLOOD CULTUREon 12-03-2024 Bacteria identified Cx Nom (Bld) CULTURE RESULTS NO GROWTH 5 DAYS Normal [facility] Comment on above: Order Comment: *SIRS Criteria: [...] are improving Performed By: #### B C ####[facility] ([facility])[address], [place] [address] VIR Bacteria identified Cx Nom (Bld) CULTURE RESULTS NO GROWTH 5 DAYS Normal [facility] Comment on above: Order Comment: *SIRS Criteria: [...] are improving Performed By: #### B C ####[facility] ([facility])[address], [place] [address] VIR BLOOD GAS, VENOUSon 12-04-19 25 BASE,EXCESS 6.0 mmol/L High 0.0-2.0 [facility] Comment on above: Performed By: #### V BG #### [facility] ([address] [address] VIR HCO3 (Bld) [Moles/Vol] 33.9 mmol/L High 20.0-24.0 [facility] Comment on above: Performed By: #### V BG #### [address] [address] VIR Oxygen saturation in Blood 50.0 % Normal [facility] Comment on above: Performed By: #### V BG #### [address] [address] VIR PCO2 VENOUS 67.5 mmHg High 35.0-50.0 [facility] Comment on above: Performed By: #### V BG #### [address] [address] VIR PH VENOUS 7.309 Low 7.320-7.42 0 [facility] Comment on above: Performed By: #### V BG #### [address] [place] [address] VIR PO2 VENOUS 31 mmHg Normal 30-50 [facility] Comment on above: Performed By: #### V BG #### [facility] ([address] [place] [address] VIR POC RAVINDRA'S TEST N/A Normal [facility] Comment on above: Performed By: #### V BG #### [facility] ([address] [place] [address] VIR SAMPLE SITE N/A Normal [facility] Comment on above: Performed By: #### V BG #### [facility] ([address] [place] [address] VIR SAMPLE TYPE VENOUS Normal [facility] Comment on above: Performed By: #### V BG #### [facility] ([address] [place] [address] VIR SOURCE OF OXYGEN NC Normal [facility] Comment on above: Performed By: #### V BG #### [facility] ([address] [place] [address] VIR BLOOD GAS, VENOUS VBG BLOOD GAS, VENOU S Cancelled Normal [facility] CBC WITH AUTO DIFFERENTIALon 12-03-2024 BASOPHILS ABSOLUTE COUNT (10*3/UL) BY AUTOMATED COUNT 0.1 10*3/uL Normal 0.0-0.2 [facility] Comment on above: Result Comment: This is an appended report. These results have been appended to a previously preliminary verified report. Performed By: #### C BCA #### [facility] ([address] [place] [address] VIR BASOPHILS RELATIVE PERCENT BY AUTOMATED COUNT 0.8 % Normal [facility] Comment on above: Result Comment: This is an appended report. These results have been appended to a previously preliminary verified report. Performed By: #### C BCA #### [facility] ([place]) [address] [place] [address] VIR CELLAVISION ANISOCYTOSIS IN BLOOD BY LIGHT MICROSCOPY 2+ Normal [facility] Comment on above: Result Comment: This is an appended report. These results have been appended to a previously preliminary verified report. Performed By: #### C BCA #### [facility] ([address] [address] VIR CELLAVISION DIFFERENTIAL TYPE AUTOMATED DIFFERENTIAL Normal [facility] Comment on above: Result Comment: This is an appended report. These results have been appended to a previously preliminary verified report. Performed By: #### C BCA #### [facility] ([address] [address] VIR CELLAVISION MICROCYTES IN BLOOD BY LIGHT MICROSCOPY 2+ Normal [facility] Comment on above: Result Comment: This is an appended report. These results have been appended to a previously preliminary verified report. Performed By: #### C BCA #### [facility] ([address] [address] VIR CELLAVISION RBC MORPHOLOGY Reviewed Normal [facility] Comment on above: Result Comment: This is an appended report. These results have been appended to a previously preliminary verified report. Performed By: #### C BCA #### [facility] ([address] [address] VIR Eosinophils (Bld) [#/Vol] 0.1 10*3/uL Normal 0.0-0.4 [facility] Comment on above: Result Comment: This is an appended report. These results have been appended to a previously preliminary verified report. Performed By: #### C BCA #### [facility] ([address] [address] VIR EOSINOPHILS RELATIVE PERCENT BY AUTOMATED COUNT 1.3 % Normal [facility] Comment on above: Result Comment: This is an appended report. These results have been appended to a previously preliminary verified report. Performed By: #### C BCA #### [facility] ([address] [address] VIR Erythrocyte distribution width (RBC) [Ratio] 19.7 % High 11.5-15 [facility] Comment on above: Performed By: #### C BCA #### [facility] ([address] [address] VIR Hematocrit (Bld) [Volume fraction] 31.1 % Low 35-47 [facility] Comment on above: Performed By: #### C BCA #### [address] [address] VIR Hemoglobin (Bld) [Mass/Vol] 9.3 g/dL Low 11.7-15.5 [facility] Comment on above: Performed By: #### C BCA #### [facility] ([address] [address] VIR LYMPHOCYTES ABSOLUTE COUNT (10*3/UL) BY AUTOMATED COUNT 1.3 10*3/uL Normal 1.0-3.5 [facility] Comment on above: Result Comment: This is an appended report. These results have been appended to a previously preliminary verified report. Performed By: #### C BCA #### [address] [address] VIR LYMPHOCYTES RELATIVE PERCENT BY AUTOMATED COUNT 11.2 % Normal [facility] Comment on above: Result Comment: This is an appended report. These results have been appended to a previously preliminary verified report. Performed By: #### C BCA #### [facility] ([address] [address] VIR MCH (RBC) [Entitic mass] 19.3 pg Low 27-34 [facility] Comment on above: Performed By: #### C BCA #### [facility] ([address] [address] VIR MCHC (RBC) [Mass/Vol] 29.7 g/dL Low 32-36 [facility] Comment on above: Performed By: #### C BCA #### [facility] ([address] [address] VIR MCV (RBC) [Entitic vol] 65 fL Low 80-100 [facility] Comment on above: Performed By: #### C BCA #### [facility] ([address] [address] VIR MONOCYTES ABSOLUTE COUNT (10*3/UL) BY AUTOMATED COUNT 0.7 10*3/uL Normal 0.0-0.9 [facility] Comment on above: Result Comment: This is an appended report. These results have been appended to a previously preliminary verified report. Performed By: #### C BCA #### [facility] ([address] [address] VIR MONOCYTES RELATIVE PERCENT BY AUTOMATED COUNT 5.9 % Normal [facility] Comment on above: Result Comment: This is an appended report. These results have been appended to a previously preliminary verified report. Performed By: #### C BCA #### [facility] ([address] [address] VIR NEUTROPHILS ABSOLUTE COUNT BY AUTOMATED COUNT 9.1 10*3/uL High 1.5-6.6 [facility] Comment on above: Result Comment: This is an appended report. These results have been appended to a previously preliminary verified report. Performed By: #### C BCA #### [address] [address] VIR NEUTROPHILS RELATIVE PERCENT BY AUTOMATED COUNT 80.8 % Normal [facility] Comment on above: Result Comment: This is an appended report. These results have been appended to a previously preliminary verified report. Performed By: #### C BCA #### [place] [address] [place] [address] VIR Platelet mean volume (Bld) [Entitic vol] 7.3 fL Normal 7-12 [facility] Comment on above: Performed By: #### C BCA #### [facility] ([address] [place] [address] VIR Platelets (Bld) [#/Vol] 391 10*3/uL Normal 150-450 [facility] Comment on above: Performed By: #### C BCA #### [facility] ([address] [place] [address] VIR RBC COUNT 4.79 X10E12/L Normal 3.8-5.2 [facility] Comment on above: Performed By: #### C BCA #### [facility] ([address] [place] [address] VIR WBC (Bld) [#/Vol] 11.3 10*3/uL High 4-11 [facility] Comment on above: Performed By: #### C BCA #### [facility] ([address] [place] [address] VIR COMPREHENSIVE METABOLIC PANE Meek 12-03-2024 Albumin [Mass/Vol] 3.9 g/dL Normal 3.2-5.3 [facility] Comment on above: Performed By: #### C MP #### [facility] ([address] [place] [address] VIR ALP [Catalytic activity/Vol] 112 U/L Normal 39-130 [facility] Comment on above: Performed By: #### C MP #### [facility] ([address] [place] [address] VIR ALT [Catalytic activity/Vol] 24 U/L Normal <=31 [facility] Comment on above: Performed By: #### C MP #### [facility] ([place] [address] [place] [address] VIR Anion gap [Moles/Vol] 5 mmol/L Normal 5-15 [facility] Comment on above: Performed By: #### C MP #### [facility] ([place] [address] [place] [address] VIR AST [Catalytic activity/Vol] 24 U/L Normal <=41 [facility] Comment on above: Performed By: #### C MP #### [facility] ([place] [address] [place] [address] VIR Bilirubin [Mass/Vol] 0.3 mg/dL Normal 0.3-1.2 [facility] Comment on above: Performed By: #### C MP #### [facility] ([address] [place] [address] VIR Calcium [Mass/Vol] 8.4 mg/dL Low 8.5-10.5 [facility] Comment on above: Performed By: #### C MP #### [facility] ([address] [place] [address] VIR Chloride [Moles/Vol] 101 mmol/L Normal 98-109 [facility] Comment on above: Performed By: #### C MP #### [facility] ([place] [address] [place] [address] VIR CO2 [Moles/Vol] 34 mmol/L High 22-32 [facility] Comment on above: Performed By: #### C MP #### [facility] ([place] [address] [place] [address] VIR Creatinine [Mass/Vol] 1.39 mg/dL High 0.40-1.00 [facility] Comment on above: Result Comment: METH OD TRACEABLE TO IDMS STANDARD Performed By: #### C MP #### [facility] ([place] [address] [place] [address] VIR GFR/1.73 sq M.predicted among non-blacks MDRD (S/P/Bld) [Vol rate/Area] 43 mL/min/{1.73_m2} Low >=60 [facility] Comment on above: Result Comment: eGFR not reported due to non-numeric value for Creatinine. Reported eGFR is based on the CKD-EPI 2020 equation that does not use a race coefficient. Performed By: #### C MP #### [facility] ([address] [place] [address] VIR Glucose [Mass/Vol] 130 mg/dL High 65-99 [facility] Comment on above: Performed By: #### C MP #### [facility] ([address] [place] [address] VIR Potassium [Moles/Vol] 3.5 mmol/L Normal 3.5-5.0 [facility] Comment on above: Performed By: #### C MP #### [facility] ([address] [place] [address] VIR Protein [Mass/Vol] 7.7 g/dL Normal 6.0-8.0 [facility] Comment on above: Performed By: #### C MP #### [facility] ([address] [place] [address] VIR Sodium [Moles/Vol] 140 mmol/L Normal 134-146 [facility] Comment on above: Performed By: #### C MP #### [facility] ([address] [place] [address] VIR Urea nitrogen [Mass/Vol] 16 mg/dL Normal 5-27 [facility] Comment on above: Performed By: #### C MP #### [facility] ([place] [address] [place] [address] CTA CHESTon 12-03-2024 CT CTA [...] Finn MD on 12/03/2024 4:15 AM Normal [facility] LACTATE W/ REFLEXon 12-04-19 25 LACTATE W/REFLEX 0.8 mmol/L Normal 0.4-2.0 [facility] Comment on above: Order Comment: Resul t did not trigger repeat Lactate, re-order if needed. Performed By: #### L ACTS #### [address] [address] VIR TROP I, HIGH SENSITIVITY 1 H OURon 12-03-2024 TROPONIN I, HIGH SENSITIVITY 7 ng/L Normal <16 [facility] Comment on above: Performed By: #### T [email or web address] ####[facility] ([address] [address] VIR TROPONIN I, HIGH SENSITIVITY 0 HOURon 12-03-2024 TROPONIN I, HIGH SENSITIVITY 8 ng/L Normal <16 [facility] Comment on above: Performed By: #### T NIHS0 #### [facility] ([address] [place] [address] VIR XR CHEST 1 VWon 12-03-2024 XR [...] Finn MD on 12/03/2024 3:36 AM Normal [facility] BASIC METABOLIC PANELon 08-0 Anion gap [Moles/Vol] 8 mmol/L Normal 5-15 [facility] Comment on above: Performed By: #### B MP #### [facility] ([facility]) [address] [place] [address] VIR Calcium [Mass/Vol] 9.0 mg/dL Normal 8.5-10.5 [facility] Comment on above: Performed By: #### B MP #### [facility] ([facility]) [address] [place] [address] VIR Chloride [Moles/Vol] 103 mmol/L Normal 98-109 [facility] Comment on above: Performed By: #### B MP #### [facility] ([facility]) [address] [place] [address] VIR CO2 [Moles/Vol] 29 mmol/L Normal 22-32 [facility] Comment on above: Performed By: #### B MP #### [facility] ([facility]) [address] [place] [address] VIR Creatinine [Mass/Vol] 1.15 mg/dL High 0.40-1.00 [facility] Comment on above: Result Comment: METH OD TRACEABLE TO IDMS STANDARD Performed By: #### B MP #### [facility] ([facility]) [address] [place] [address] VIR GFR/1.73 sq M.predicted among non-blacks MDRD (S/P/Bld) [Vol rate/Area] 54 mL/min/{1.73_m2} Low >=60 [facility] Comment on above: Result Comment: Repo rted eGFR is based on the CKD-EPI 2020 equation that does not use a race coefficient. Performed By: #### B MP #### [facility] ([facility]) [address] [place] [address] VIR Glucose [Mass/Vol] 83 mg/dL Normal 65-99 [facility] Comment on above: Performed By: #### B MP #### [facility] ([facility]) [address] [place] [address] VIR Potassium [Moles/Vol] 4.1 mmol/L Normal 3.5-5.0 [facility] Comment on above: Performed By: #### B MP #### [facility] ([facility]) [address] [place] [address] VIR Sodium [Moles/Vol] 140 mmol/L Normal 134-146 [facility] Comment on above: Performed By: #### B MP #### [facility] ([facility]) [address] [place] [address] VIR Urea nitrogen [Mass/Vol] 15 mg/dL Normal 5-27 [facility] Comment on above: Performed By: #### B MP #### [facility] ([facility]) [address] [place] [address] VIR XR KNEE RT 3 VWSon XR [...] Finn MD on 11/29/2024 2:28 PM Normal [facility] CBC WITH AUTO DIFFERENTIALon 10-27-2024 Band form neutrophils/100 WBC (Bld) 4 % Normal [facility] Comment on above: Result Comment: This is an appended report. These results have been appended to a previously preliminary verified report. Performed By: #### C BCA #### [facility] ([facility]) [address] [place] [address] VIR CELLAVISION BASOPHILS ABSOLUTE COUNT (10*3/UL) BY MANUAL COUNT 0.1 10*3/uL Normal 0.0-0.2 [facility] Comment on above: Result Comment: This is an appended report. These results have been appended to a previously preliminary verified report. Performed By: #### C BCA #### [facility] ([facility]) [address] [place] [address] VIR CELLAVISION BASOPHILS RELATIVE PERCENT BY MANUAL COUNT 1 % Normal [facility] Comment on above: Result Comment: This is an appended report. These results have been appended to a previously preliminary verified report. Performed By: #### C BCA #### [facility] ([facility]) [address] [place] [address] VIR CELLAVISION DIFFERENTIAL TYPE CELLAVISION DIFFERENTIAL Normal [facility] Comment on above: Result Comment: This is an appended report. These results have been appended to a previously preliminary verified report. Performed By: #### C BCA #### [facility] ([facility]) [address] [place] [address] VIR CELLAVISION EOSINOPHILS ABSOLUTE COUNT (10*3/UL) BY MANUAL COUNT 0.2 10*3/uL Normal 0.0-0.4 [facility] Comment on above: Result Comment: This is an appended report. These results have been appended to a previously preliminary verified report. Performed By: #### C BCA #### [facility] ([facility]) [address] [place] [address] VIR CELLAVISION EOSINOPHILS PERCENT BY MANUAL COUNT 2 % Normal [facility] Comment on above: Result Comment: This is an appended report. These results have been appended to a previously preliminary verified report. Performed By: #### C BCA #### [facility] ([facility]) [address] [place] [address] VIR CELLAVISION LYMPHOCYTES ABSOLUTE COUNT (10*3/UL) BY MANUAL COUNT 1.9 10*3/uL Normal 1.0-3.5 [facility] Comment on above: Result Comment: This is an appended report. These results have been appended to a previously preliminary verified report. Performed By: #### C BCA #### [facility] ([facility]) [address] [place] [address] VIR CELLAVISION LYMPHOCYTES RELATIVE PERCENT BY MANUAL COUNT 21 % Normal [facility] Comment on above: Result Comment: This is an appended report. These results have been appended to a previously preliminary verified report. Performed By: #### C BCA #### [facility] ([facility]) [address] [place] [address] VIR CELLAVISION MONOCYTES ABSOLUTE COUNT (10*3/UL) IN BLOOD BY MANUAL COUNT 0.2 10*3/uL Normal 0.0-0.9 [facility] Comment on above: Result Comment: This is an appended report. These results have been appended to a previously preliminary verified report. Performed By: #### C BCA #### [facility] ([facility]) [address] [place] [address] VIR CELLAVISION MONOCYTES RELATIVE PERCENT BY MANUAL COUNT 2 % Normal [facility] Comment on above: Result Comment: This is an appended report. These results have been appended to a previously preliminary verified report. Performed By: #### C BCA #### [facility] ([facility]) [address] [place] [address] VIR CELLAVISION NEUTROPHILS ABSOLUTE COUNT BY MANUAL COUNT 6.8 10*3/uL High 1.5-6.6 [facility] Comment on above: Result Comment: This is an appended report. These results have been appended to a previously preliminary verified report. Performed By: #### C BCA #### [facility] ([facility]) [address] [place] [address] VIR CELLAVISION NEUTROPHILS RELATIVE PERCENT BY MANUAL COUNT 70 % Normal [facility] Comment on above: Result Comment: This is an appended report. These results have been appended to a previously preliminary verified report. Performed By: #### C BCA #### [facility] ([facility]) [address] [place] [address] VIR CELLAVISION RBC MORPHOLOGY Reviewed Normal [facility] Comment on above: Result Comment: This is an appended report. These results have been appended to a previously preliminary verified report. Performed By: #### C BCA #### [facility] ([facility]) [address] [place] [address] VIR Erythrocyte distribution width (RBC) [Ratio] 20.4 % High 11.5-15 [facility] Comment on above: Performed By: #### C BCA #### [facility] ([facility]) [address] [place] [address] VIR Hematocrit (Bld) [Volume fraction] 32.9 % Low 35-47 [facility] Comment on above: Performed By: #### C BCA #### [facility] ([facility]) [address] [place] [address] VIR Hemoglobin (Bld) [Mass/Vol] 10.0 g/dL Low 11.7-15.5 [facility] Comment on above: Performed By: #### C BCA #### [facility] [facility] ([facility]) [address] [place] [address] VIR MCH (RBC) [Entitic mass] 21.2 pg Low 27-34 [facility] Comment on above: Performed By: #### C BCA #### [facility] ([facility]) [address] [place] [address] VIR MCHC (RBC) [Mass/Vol] 30.4 g/dL Low 32-36 [facility] Comment on above: Performed By: #### C BCA #### [facility] ([facility]) [address] [place] [address] VIR MCV (RBC) [Entitic vol] 70 fL Low 80-100 [facility] Comment on above: Performed By: #### C BCA #### [facility] ([facility]) [address] [place] [address] VIR Platelet mean volume (Bld) [Entitic vol] 8.2 fL Normal 7-12 [facility] Comment on above: Performed By: #### C BCA #### [facility] ([facility]) [address] [place] [address] VIR Platelets (Bld) [#/Vol] 334 10*3/uL Normal 150-450 [facility] Comment on above: Performed By: #### C BCA #### [facility] ([facility]) [address] [place] [address] VIR RBC COUNT 4.73 X10E12/L Normal 3.8-5.2 [facility] Comment on above: Performed By: #### C BCA #### [facility] ([facility]) [address] [place] [address] VIR WBC (Bld) [#/Vol] 9.1 10*3/uL Normal 4-11 [facility] Comment on above: Performed By: #### C BCA #### [facility] ([facility]) [address] [place] [address] VIR CBC auto differentialon 070 Band form neutrophils/100 WBC (Bld) 4 % [facility] Comment on above: This is an appended report. These results have been appended to a previously preliminary verified report. Basophils (Bld) [#/Vol] 0.1 10*3/uL 0.0 - 0.2 10*3/uL [facility] Comment on above: This is an appended report. These results have been appended to a previously preliminary verified report. Basophils/100 WBC (Bld) 1 % [facility] Comment on above: This is an appended report. These results have been appended to a previously preliminary verified report. Differential cell count method Nom (Bld) CELLAVISION DIFFERENTIAL [facility] Comment on above: This is an appended report. These results have been appended to a previously preliminary verified report. Eosinophils (Bld) [#/Vol] 0.2 10*3/uL 0.0 - 0.4 10*3/uL [facility] Comment on above: This is an appended report. These results have been appended to a previously preliminary verified report. Eosinophils/100 WBC (Bld) 2 % [facility] Comment on above: This is an appended report. These results have been appended to a previously preliminary verified report. Erythrocyte distribution width (RBC) [Ratio] 20.4 % High 11.5 - 15 % [facility] Hematocrit (Bld) [Volume fraction] 32.9 % Low 35 - 47 % [facility] Hemoglobin (Bld) [Mass/Vol] 10 g/dL Low 11.7 - 15.5 g/dL [facility] Interpretation and review of laboratory results Abnormal [facility] Lymphocytes (Bld) [#/Vol] 1.9 10*3/uL 1.0 - 3.5 10*3/uL [facility] Comment on above: This is an appended report. These results have been appended to a previously preliminary verified report. MCH (RBC) [Entitic mass] 21.2 pg Low 27 - 34 pg [facility] MCHC (RBC) [Mass/Vol] 30.4 g/dL Low 32 - 36 g/dL [facility] MCV (RBC) [Entitic vol] 70 fL Low 80 - 100 fL [facility] Monocytes (Bld) [#/Vol] 0.2 10*3/uL 0.0 - 0.9 10*3/uL [facility] Comment on above: This is an appended report. These results have been appended to a previously preliminary verified report. Monocytes/100 WBC (Bld) 2 % [facility] Comment on above: This is an appended report. These results have been appended to a previously preliminary verified report. Neutrophils (Bld) [#/Vol] 6.8 10*3/uL High 1.5 - 6.6 10*3/uL [facility] Comment on above: This is an appended report. These results have been appended to a previously preliminary verified report. Neutrophils/100 WBC (Bld) 70 % [facility] Comment on above: This is an appended report. These results have been appended to a previously preliminary verified report. Platelet mean volume (Bld) [Entitic vol] 8.2 fL 7 - 12 fL [facility] Platelets (Bld) [#/Vol] 334 10*3/uL [facility] RBC (Bld) [#/Vol] 4.73 10*6/uL [facility] RBC (Bld) [#/Vol] Reviewed [facility] Comment on above: This is an appended report. These results have been appended to a previously preliminary verified report. Variant lymphocytes/100 WBC (Bld) 21 % [facility] Comment on above: This is an appended report. These results have been appended to a previously preliminary verified report. WBC LM Ql (Sput) 9.1 [facility] COMPREHENSIVE METABOLIC PANE Meek 10-27-2024 Albumin [Mass/Vol] 4.4 g/dL Normal 3.2-5.3 [facility] Comment on above: Performed By: #### C MP #### [facility] [address] [place] [address] VIR ALP [Catalytic activity/Vol] 100 U/L Normal 39-130 [facility] Comment on above: Performed By: #### C MP #### [facility] ([facility]) [address] [place] [address] VIR ALT [Catalytic activity/Vol] 33 U/L High <=31 [facility] Comment on above: Performed By: #### C MP #### [facility] ([facility]) [address] [place] [address] VIR Anion gap [Moles/Vol] 7 mmol/L Normal 5-15 [facility] Comment on above: Performed By: #### C MP #### [facility] ([facility]) [address] [place] [address] VIR AST [Catalytic activity/Vol] 22 U/L Normal <=41 [facility] Comment on above: Performed By: #### C MP #### [facility] ([facility]) [address] [place] [address] VIR Bilirubin [Mass/Vol] 0.3 mg/dL Normal 0.3-1.2 [facility] Comment on above: Performed By: #### C MP #### [facility] ([facility]) [address] [place] [address] VIR Calcium [Mass/Vol] 9.3 mg/dL Normal 8.5-10.5 [facility] Comment on above: Performed By: #### C MP #### [facility] ([facility]) [address] [place] [address] VIR Chloride [Moles/Vol] 102 mmol/L Normal 98-109 [facility] Comment on above: Performed By: #### C MP #### [facility] ([facility]) [address] [place] [address] VIR CO2 [Moles/Vol] 34 mmol/L High 22-32 [facility] Comment on above: Performed By: #### C MP #### [facility] ([facility]) [address] [place] [address] VIR Creatinine [Mass/Vol] 1.27 mg/dL High 0.40-1.00 [facility] Comment on above: Result Comment: METH OD TRACEABLE TO IDMS STANDARD Performed By: #### C MP #### [facility] ([facility]) [address] [place] [address] VIR GFR/1.73 sq M.predicted among non-blacks MDRD (S/P/Bld) [Vol rate/Area] 48 mL/min/{1.73_m2} Low >=60 [facility] Comment on above: Result Comment: Repo rted eGFR is based on the CKD-EPI 2020 equation that does not use a race coefficient. Performed By: #### C MP #### [facility] ([facility]) [address] [place] [address] VIR Glucose [Mass/Vol] 114 mg/dL High 65-99 [facility] Comment on above: Performed By: #### C MP #### [facility] ([facility]) [address] [place] [address] VIR Potassium [Moles/Vol] 4.4 mmol/L Normal 3.5-5.0 [facility] Comment on above: Performed By: #### C MP #### [facility] ([facility]) [address] [place] [address] VIR Protein [Mass/Vol] 7.6 g/dL Normal 6.0-8.0 [facility] Comment on above: Performed By: #### C MP #### [facility] ([facility]) [address] [place] [address] VIR Sodium [Moles/Vol] 143 mmol/L Normal 134-146 [facility] Comment on above: Performed By: #### C MP #### [facility] ([facility]) [address] [place] [address] VIR Urea nitrogen [Mass/Vol] 19 mg/dL Normal 5-27 [facility] Comment on above: Performed By: #### C MP #### [facility] ([facility]) [address] [place] [address] VIR Comprehensive metabolic pane meek 10-27-2024 Albumin [Mass/Vol] 4.4 g/dL 3.2 - 5.3 g/dL [facility] ALP [Catalytic activity/Vol] 100 U/L 39 - 130 U/L [facility] ALT No additional P-5'-P [Catalytic activity/Vol] 33 U/L High NINF - 31 U/L [facility] Anion gap [Moles/Vol] 7 mmol/L 5 - 15 mmol/L [facility] AST [Catalytic activity/Vol] 22 U/L NINF - 41 U/L [facility] Bilirubin [Mass/Vol] 0.3 mg/dL 0.3 - 1.2 mg/dL [facility] Calcium [Mass/Vol] 9.3 mg/dL 8.5 - 10. 5 mg/dL [facility] Chloride [Moles/Vol] 102 mmol/L 98 - 109 mmol/L [facility] CO2 [Moles/Vol] 34 mmol/L High 22 - 32 mmol/L [facility] Creatinine [Mass/Vol] 1.27 mg/dL High 0.40 - 1.00 mg/dL [facility] Comment on above: METHOD TRACEABLE TO IDMS STANDARD EGFR Non-Race Dependent 48 Low - PINF [facility] Comment on above: Reported eGFR is bas ed on the CKD-EPI 2020 equation that does not use a race coefficient. Glucose [Mass/Vol] 114 mg/dL High 65 - 99 mg/dL [facility] Interpretation and review of laboratory results Abnormal [facility] Potassium [Moles/Vol] 4.4 mmol/L 3.5 - 5.0 mmol/L [facility] Protein [Mass/Vol] 7.6 g/dL 6.0 - 8.0 g/dL [facility] Sodium [Moles/Vol] 143 mmol/L 134 - 146 mmol/L [facility] Urea nitrogen [Mass/Vol] 19 mg/dL 5 - 27 mg/dL [facility] HEMOGLOBIN A1Con 10-27-2024 Glucose [Mass/Vol] 134 mg/dL Normal [facility] Comment on above: Performed By: #### H A1C #### [facility] ([facility]) [address] [place] [address] VIR HbA1c (Bld) [Mass fraction] 6.3 % High 4.4-5.6 [facility] Comment on above: Result Comment: ADA Guidelines Result HgbA1c Normal : less than 5.7 % Prediabetes : 5.7 % to 6.4 % Diabetes : > 6.4 % Use with caution in patients with abnormal hemoglobin variants as the half-life of red blood cells and in vivo glycation rates are affected. Performed By: #### H A1C #### [facility] ([facility]) [address] [place] [address] VIR CBC AND AUTO DIFFon 07-08-19 25 ABSOLUTE BASOPHIL 0.1 X10E9/L Normal 0.0-0.2 [facility] Comment on above: Performed By: #### T KENTRELL 2131-12, BMP, CBCA #### [facility] ([id number]) [address] [address] [place] [address] ABSOLUTE NEUTROPHIL 7.1 X10E9/L High 1.5-6.6 [facility] Comment on above: Performed By: #### Lilly PFEIFFER 2131-12, BMP, CBCA #### [facility] ([id number]) [address] [address] [place] [address] Basophils/100 WBC (Bld) 0.6 % Normal [facility] Comment on above: Performed By: #### T KENTRELL, 2131-12, BMP, CBCA #### [facility] ([id number]) [address] [address] [place] [address] Eosinophils (Bld) [#/Vol] 0.1 10*3/uL Normal 0.0-0.4 [facility] Comment on above: Performed By: #### Lilly PFEIFFER 2131-12, BMP, CBCA #### [facility] ([id number]) [address], [address] [address] Eosinophils/100 WBC (Bld) 1.0 % Normal [facility] Comment on above: Performed By: #### Lilly PFEIFFER 2131-12, BMP, CBCA #### [facility] ([id number]) [address], [address] [address] Erythrocyte distribution width (RBC) [Ratio] 20.7 % High 11.5-15.0 [facility] Comment on above: Performed By: #### Lilly PFEIFFER 2131-12, BMP, CBCA #### [facility] ([id number]) [address], [address] [address] Hematocrit (Bld) [Volume fraction] 37.2 % Normal 35-47 [facility] Comment on above: Performed By: #### Lilly PFEIFFER 2131-12, BMP, CBCA #### [facility] ([id number]) [address], [address] [address] Hemoglobin (Bld) [Mass/Vol] 11.7 g/dL Normal 11.7-15.5 [facility] Comment on above: Performed By: #### Lilly PFEIFFER 2131-12, BMP, CBCA #### [facility] ([id number]) [address], [address] [address] Lymphocytes (Bld) [#/Vol] 1.6 10*3/uL Normal 1.0-3.5 [facility] Comment on above: Performed By: #### Lilly PFEIFFER 2131-12, BMP, CBCA #### [facility] ([id number]) [address], [facility] [address] [place] [address] Lymphocytes/100 WBC (Bld) 17.6 % Normal [facility] Comment on above: Performed By: #### Lilly PFEIFFER 2131-12, BMP, CBCA #### [facility] ([id number]) [address], [address] [place] [address] MCH (RBC) [Entitic mass] 23.0 pg Low 27-34 [facility] Comment on above: Performed By: #### Lilly PFEIFFER 2131-12, BMP, CBCA #### [facility] ([id number]) [address], [facility] [address] [place] [address] MCHC (RBC) [Mass/Vol] 31.4 g/dL Low 32-36 [facility] Comment on above: Performed By: #### Lilly PFEIFFER 2131-12, BMP, CBCA #### [facility] ([id number]) [address], [address] [place] [address] MCV (RBC) [Entitic vol] 73 fL Low 80-100 [facility] Comment on above: Performed By: #### Lilly PFEIFFER 2131-12, BMP, CBCA #### [facility] ([id number]) [address], [address] [place] [address] Monocytes (Bld) [#/Vol] 0.4 10*3/uL Normal 0-0.9 [facility] Comment on above: Performed By: #### Lilly PFEIFFER 2131-12, BMP, CBCA #### [facility] ([id number]) [address], [facility] [address] [place] [address] Monocytes/100 WBC (Bld) 4.2 % Normal [facility] Comment on above: Performed By: #### Lilly PFEIFFER 2131-12, BMP, CBCA #### [facility] ([id number]) [address], [address] [place] [address] Neutrophils/100 WBC (Bld) 76.6 % Normal [facility] Comment on above: Performed By: #### Lilly PFEIFFER 2131-12, BMP, CBCA #### [facility] ([id number]) [address], [address] [place] [address] Platelet mean volume (Bld) [Entitic vol] 8.2 fL Normal 7-12 [facility] Comment on above: Performed By: #### Lilly PFEIFFER 2131-12, BMP, CBCA #### [facility] ([id number]) [address], [address] [place] [address] Platelets (Bld) [#/Vol] 396 10*3/uL Normal 150-450 [facility] Comment on above: Performed By: #### Lilly PFEIFFER 2131-12, BMP, CBCA #### [facility] ([id number]) [address], [address] [place] [address] RBC COUNT 5.09 X10E12/L Normal 3.80-5.20 [facility] Comment on above: Performed By: #### Lilly PFEIFFER 2131-12, BMP, CBCA #### [facility] ([id number]) [address], [address] [address] WBC (Bld) [#/Vol] 9.3 10*3/uL Normal 4.0-11.0 [facility] Comment on above: Performed By: #### Lilly PFEIFFER 2131-12, BMP, CBCA #### [facility] ([id number]) [address], [address] [place] [address] COMPREHENSIVE METABOLIC PANE Meek 07-07-2024 Albumin [Mass/Vol] 4.1 g/dL Normal 3.2-5.3 [facility] Comment on above: Performed By: #### Lilly PFEIFFER 2131-12, BMP, CBCA #### [facility] ([id number]) [address], [address] [place] [address] ALP [Catalytic activity/Vol] 106 U/L Normal 39-130 [facility] Comment on above: Performed By: #### Lilly PFEIFFER 2131-12, BMP, CBCA #### [facility] ([id number]) [address], [address] [place] [address] ALT [Catalytic activity/Vol] 30 U/L Normal 0-31 [facility] Comment on above: Performed By: #### Lilly PFEIFFER 2131-12, BMP, CBCA #### [facility] ([id number]) [address], [address] [place] [address] Anion gap [Moles/Vol] 10 mmol/L Normal 5-15 [facility] Comment on above: Performed By: #### Lilly PFEIFFER 2131-12, BMP, CBCA #### [facility] ([id number]) [address], [address] [place] [address] AST [Catalytic activity/Vol] 30 U/L Normal 0-41 [facility] Comment on above: Performed By: #### Lilly PFEIFFER 2131-12, BMP, CBCA #### [facility] ([id number]) [address], [address] [place] [address] Bilirubin [Mass/Vol] 0.3 mg/dL Normal 0.3-1.2 [facility] Comment on above: Performed By: #### Lilly PFEIFFER 2131-12, BMP, CBCA #### [facility] ([id number]) [address], [address] [place] [address] Calcium [Mass/Vol] 9.6 mg/dL Normal 8.5-10.5 [facility] Comment on above: Performed By: #### Lilly PFEIFFER 2131-12, BMP, CBCA #### [facility] ([id number]) [address], [address] [place] [address] Chloride [Moles/Vol] 105 mmol/L Normal 98-109 [facility] Comment on above: Performed By: #### Lilly PFEIFFER 2131-12KEKE CBCA #### [facility] ([id number]) [address], [address] [place] [address] CO2 [Moles/Vol] 25 mmol/L Normal 22-32 [facility] Comment on above: Performed By: #### Lilly PFEIFFER 2131-12, KEKE, CBCMindi #### [facility] ([id number]) [address], [address] [place] [address] Creatinine [Mass/Vol] 1.14 mg/dL High 0.40-1.00 [facility] Comment on above: Result Comment: METH OD TRACEABLE TO IDMS STANDARD Performed By: #### Lilly PFEIFFER 2131-12KEKE CBCA #### [facility] ([id number]) [address], [address] [place] [address] GFR/1.73 sq M.predicted among non-blacks MDRD (S/P/Bld) [Vol rate/Area] 54 mL/min/{1.73_m2} Low >59 [facility] Comment on above: Result Comment: Reported eGFR is based on the CKD-EPI 2020 equation that does not use a race coefficient. Performed By: #### Lilly PFEIFFER 2131-12, ANNA DAVIES #### [facility] ([id number]) [address], [address] [place] [address] Glucose [Mass/Vol] 144 mg/dL High 65-99 [facility] Comment on above: Performed By: #### Lilly PFEIFFER 2131-12, KEKE CBCMindi #### [facility] ([id number]) [address], [address] [place] [address] Potassium [Moles/Vol] 3.9 mmol/L Normal 3.5-5.0 [facility] Comment on above: Performed By: #### Lilly PFEIFFER, 2131-12, BMP, CBCA #### [facility] ([id number]) [address], [address] [place] [address] Protein [Mass/Vol] 7.5 g/dL Normal 6.0-8.0 [facility] Comment on above: Performed By: #### Lilly PFEIFFER 2131-12, BMP, CBCA #### [facility] ([id number]) [address], [address] [place] [address] Sodium [Moles/Vol] 140 mmol/L Normal 134-146 [facility] Comment on above: Performed By: #### Lilly PFEIFFER 2131-12, BMP, CBCA #### [facility] ([id number]) [address], [address] [place] [address] Urea nitrogen [Mass/Vol] 11 mg/dL Normal 5-27 [facility] Comment on above: Performed By: #### Lilly PFEIFFER 2131-12, BMP, CBCA #### [facility] ([id number]) [address], [address] [place] [address] HGB A1C (GLYCO-HGB)on 2024 Glucose [Mass/Vol] 140 mg/dL Normal [facility] Comment on above: Performed By: #### Lilly PFEIFFER 2131-12, BMP, CBCA #### [facility] ([id number]) [address], [address] [place] [address] HbA1c (Bld) [Mass fraction] 6.5 % High 4.4-5.6 [facility] Comment on above: Result Comment: NOTE ADA Guidelines Result HgbA1c Normal : less than 5.7 % Prediabetes : 5.7 % to 6.4 % Diabetes : > 6.4 % Use with caution in patients with abnormal hemoglobin variants as the half-life of red blood cells and in vivo glycation rates are affected. Performed By: ###Fabi PFEIFFER 2131-12, ANNA DAVIES #### [facility] ([id number]) [address], [address] [place] [address] Lipid 1996 panelon 5 Cholesterol [Mass/Vol] 188 mg/dL Normal 150-200 [facility] Comment on above: Performed By: #Kyler PFEIFFER 2131-12, KEKE, ANNA #### [facility] ([id number]) [address], [address] [place] [address] Cholesterol in HDL [Mass/Vol] 33 mg/dL Low >39 [facility] Comment on above: Result Comment: HDL <40 mg/dL - High Risk HDL > or = 40mg/dL- Desirable HDL >60 mg/dL - Negative Risk Performed By: ##Jadon PFEIFFER 2131-12, ANNA DAVIES #### [facility] ([id number]) [address], [address] [place] [address] Cholesterol in LDL [Mass/Vol] 118 mg/dL Normal <130 [facility] Comment on above: Result Comment: LDL <100 mg/dL - Desirable LDL >160 mg/dL - High Risk Performed By: #Kyler PFEIFFER 2131-12, KEKE, CBCMindi #### [facility] ([id number]) [address], [address] [place] [address] Cholesterol in VLDL [Mass/Vol] 37 mg/dL High 0-30 [facility] Comment on above: Performed By: Daniel PFEIFFER 2131-12, BMP, CBCA #### [facility] ([id number]) [address], [address] [place] [address] CHOLESTEROL:HDL 5.7 High 1.0-5.0 [facility] Comment on above: Performed By: #### Lilly PFEIFFER, 2131-12, BMP, CBCA #### [facility] ([id number]) [address], [address] [place] [address] Triglyceride [Mass/Vol] 185 mg/dL High 27-150 [facility] Comment on above: Performed By: #### Lilly PFEIFFER, 2131-12, BMP, CBCA #### [facility] ([id number]) [address], [address] [place] [address] VITAMIN B12on 07-07-2024 Cobalamin (Vitamin B12) [Mass/Vol] 1244 pg/mL High 180-914 [facility] Comment on above: Performed By: #### Lilly PFEIFFER, 2131-12, BMP, CBCA #### [facility] ([id number]) [address], [address] [place] [address] CBC AND AUTO DIFFon 03-07-20 24 ABSOLUTE BASOPHIL 0.1 X10E9/L Normal 0.0-0.2 [facility] Comment on above: Performed By: #### C LANA, 257-8, HA1C, 2088-04, CBCA #### [facility] ([id number]) [address], [address] [place] [address] ABSOLUTE NEUTROPHIL 8.1 X10E9/L High 1.5-6.6 [facility] Comment on above: Performed By: #### C LANA, 257-8, HA1C, 2088-04, CBCA #### [facility] ([id number]) [address], [address] [place] [address] Basophils/100 WBC (Bld) 0.7 % Normal [facility] Comment on above: Performed By: #### C LANA, 2570-11, HA, 2088-04, CBCA #### [facility] ([id number]) [address] [place] [address] Eosinophils (Bld) [#/Vol] 0.2 10*3/uL Normal 0.0-0.4 [facility] Comment on above: Performed By: #### Javid SCHWARTZ, 2570-11, , 2088-04, CBCA #### [facility] ([id number]) [address], [address] [place] [address] Eosinophils/100 WBC (Bld) 1.4 % Normal [facility] Comment on above: Performed By: #### C LANA, 2570-11, , 2088-04, CBCA #### [facility] ([id number]) [address], [address] [place] [address] Erythrocyte distribution width (RBC) [Ratio] 19.2 % High 11.5-15.0 [facility] Comment on above: Performed By: #### C LANA, 2570-11, , 2088-04, CBCA #### [facility] ([id number]) [address], [address] [place] [address] Hematocrit (Bld) [Volume fraction] 31.0 % Low 35-47 [facility] Comment on above: Performed By: #### C LANA, 2570-11, , 2088-04, CBCA #### [facility] ([id number]) [address], [address] [place] [address] Hemoglobin (Bld) [Mass/Vol] 9.2 g/dL Low 11.7-15.5 [facility] Comment on above: Performed By: #### C LANA, 2570-11, HA, 2088-04, CBCA #### [facility] ([id number]) [address] [address] Lymphocytes (Bld) [#/Vol] 2.2 10*3/uL Normal 1.0-3.5 [facility] Comment on above: Performed By: #### C LANA, 2570-11, HA, 2088-04, CBCA #### [facility] ([id number]) [address] [address] Lymphocytes/100 WBC (Bld) 19.8 % Normal [facility] Comment on above: Performed By: #### C LANA, 2570-11, HA, 2088-04, CBCA #### [facility] ([id number]) [address] [address] MCH (RBC) [Entitic mass] 21.8 pg Low 27-34 [facility] Comment on above: Performed By: #### Javid SCHWARTZ, 2570-11, , 2088-04, CBCA #### [facility] ([id number]) [address] [address] MCHC (RBC) [Mass/Vol] 29.8 g/dL Low 32-36 [facility] Comment on above: Performed By: #### Javid SCHWARTZ, 2570-11, HA, 2088-04, CBCA #### [facility] ([id number]) [address] [address] MCV (RBC) [Entitic vol] 73 fL Low 80-100 [facility] Comment on above: Performed By: #### Javid SCHWARTZ, 2570-11, HA, 2088-04, CBCA #### [facility] ([id number]) [address] [address] Monocytes (Bld) [#/Vol] 0.4 10*3/uL Normal 0-0.9 [facility] Comment on above: Performed By: #### C LANA, 2570-11, , 2088-04, CBCA #### [facility] ([id number]) [address], [address] [place] [address] Monocytes/100 WBC (Bld) 4.0 % Normal [facility] Comment on above: Performed By: #### C LANA, 2570-11, , 2088-04, CBCA #### [facility] ([id number]) [address], [facility] [address] [place] [address] Neutrophils/100 WBC (Bld) 74.1 % Normal [facility] Comment on above: Performed By: #### C LANA, 2570-11, , 2088-04, CBCA #### [facility] ([id number]) [address], [address] [place] [address] Platelet mean volume (Bld) [Entitic vol] 8.0 fL Normal 7-12 [facility] Comment on above: Performed By: #### C LANA, 2570-11, , 2088-04, CBCA #### [facility] ([id number]) [address], [address] [place] [address] Platelets (Bld) [#/Vol] 412 10*3/uL Normal 150-450 [facility] Comment on above: Performed By: #### C LANA, 2570-11, , 2088-04, CBCA #### [facility] ([id number]) [address], [address] [place] [address] RBC COUNT 4.24 X10E12/L Normal 3.80-5.20 [facility] Comment on above: Performed By: #### C LANA, 2570-11, , 2088-04, CBCA #### [facility] ([id number]) [address], [address] [place] [address] WBC (Bld) [#/Vol] 11.0 10*3/uL Normal 4.0-11.0 [facility] Comment on above: Performed By: #### C MP, 2571-8, HA1C, 2088-1, CBCA #### [facility] ([id number]) [address] [facility] [place] [address] CBC auto differentialon 02-25 Basophils (Bld) [#/Vol] [...] Interpretation and review of laboratory results Abnormal [facility] Lymphocytes (Bld) [#/Vol] 2.2 10*3/uL [facility] Lymphocytes/100 WBC (Bld) 19.8 % [facility] MCH (RBC) [Entitic mass] 21.8 pg Low 27 - 34 pg [facility] MCHC (RBC) [Mass/Vol] 29.8 g/dL [...] [facility] Platelets (Bld) [#/Vol] 412 10*3/uL [facility] RBC (Bld) [#/Vol] 4.24 10*6/uL [facility] WBC corrected for nucl RBC Auto (Bld) [#/Vol] 11 [facility] COMPREHENSIVE METABOLIC PANE Meek 03-07-2024 Albumin [Mass/Vol] 4.0 g/dL Normal 3.2-5.3 [facility] Comment on above: Performed By: #### Lilly PFEIFFER 2131-12, BMP, CBCA #### [facility] ([id number]) [address], [address] [place] [address] ALP [Catalytic activity/Vol] 94 U/L Normal 39-130 [facility] Comment on above: Performed By: #### Lilly PFEIFFER 2131-12, BMP, CBCA #### [facility] ([id number]) [address], [address] [place] [address] ALT [Catalytic activity/Vol] 13 U/L Normal 0-31 [facility] Comment on above: Performed By: #### Lilly PFEIFFER 2131-12, BMP, CBCA #### [facility] ([id number]) [address], [address] [place] [address] Anion gap [Moles/Vol] 6 mmol/L Normal 5-15 [facility] Comment on above: Performed By: #### Lilly PFEIFFER 2131-12, BMP, CBCA #### [facility] ([id number]) [address], [address] [place] [address] AST [Catalytic activity/Vol] 12 U/L Normal 0-41 [facility] Comment on above: Performed By: #### Lilly PFEIFFER 2131-12, BMP, CBCA #### [facility] ([id number]) [address], [address] [place] [address] Bilirubin [Mass/Vol] 0.3 mg/dL Normal 0.3-1.2 [facility] Comment on above: Performed By: #### Lilly PFEIFFER 2131-12, BMP, CBCA #### [facility] ([id number]) [address], [address] [place] [address] Calcium [Mass/Vol] 9.0 mg/dL Normal 8.5-10.5 [facility] Comment on above: Performed By: #### Lilly PFEIFFER 2131-12, BMP, CBCA #### [facility] ([id number]) [address], [address] [place] [address] Chloride [Moles/Vol] 100 mmol/L Normal 98-109 [facility] Comment on above: Performed By: #### Lilly PFEIFFER 2131-12, KEKE, CBCA #### [facility] ([id number]) [address], [address] [place] [address] CO2 [Moles/Vol] 32 mmol/L Normal 22-32 [facility] Comment on above: Performed By: #### Lilly PFEIFFER 2131-12, BMP, CBCA #### [facility] ([id number]) [address], [address] [place] [address] Creatinine [Mass/Vol] 1.26 mg/dL High 0.40-1.00 [facility] Comment on above: Result Comment: METH OD TRACEABLE TO IDMS STANDARD Performed By: #### Lilly PFEIFFER 2131-12, BMP, CBCA #### [facility] ([id number]) [address], [facility] [address] [place] [address] GFR/1.73 sq M.predicted among non-blacks MDRD (S/P/Bld) [Vol rate/Area] 49 mL/min/{1.73_m2} Low >59 [facility] Comment on above: Result Comment: Reported eGFR is based on the CKD-EPI 2020 equation that does not use a race coefficient. Performed By: #### Lilly PFEIFFER 2131-12, BMP, CBCA #### [facility] ([id number]) [address], [address] [place] [address] Glucose [Mass/Vol] 120 mg/dL High 65-99 [facility] Comment on above: Performed By: #### Lilly PFEIFFER, 2131-12, BMP, CBCA #### [facility] ([id number]) [address], [address] [place] [address] Potassium [Moles/Vol] 3.6 mmol/L Normal 3.5-5.0 [facility] Comment on above: Performed By: #### Lilly PFEIFFER 2131-12, BMP, CBCA #### [facility] ([id number]) [address], [address] [place] [address] Protein [Mass/Vol] 7.3 g/dL Normal 6.0-8.0 [facility] Comment on above: Performed By: #### Lilly PFEIFFER 2131-12, BMP, CBCA #### [facility] ([id number]) [address], [address] [place] [address] Sodium [Moles/Vol] 138 mmol/L Normal 134-146 [facility] Comment on above: Performed By: #### Lilly PFEIFFER, 2131-12, BMP, CBCA #### [facility] ([id number]) [address], [address] [place] [address] Urea nitrogen [Mass/Vol] 21 mg/dL Normal 5-27 [facility] Comment on above: Performed By: #### Lilly PFEIFFER, 2131-12, BMP, CBCA #### [facility] ([id number]) [address], [address] [place] [address] Comprehensive metabolic pane meek 03-07-2024 Albumin [Mass/Vol] 4 g/dL 3.2 - 5.3 g/dL [facility] ALP [Catalytic activity/Vol] 94 U/L 39 - 130 U/L [facility] ALT No additional P-5'-P [Catalytic activity/Vol] 13 U/L 0 - 31 U/L [facility] Anion gap [Moles/Vol] 6 mmol/L 5 - 15 mmol/L [facility] AST [Catalytic activity/Vol] 12 U/L 0 - 41 U/L [facility] Bilirubin [Mass/Vol] 0.3 mg/dL 0.3 - 1.2 mg/dL [facility] Calcium [Mass/Vol] 9 mg/dL 8.5 - 10. 5 mg/dL [facility] Chloride [Moles/Vol] 100 mmol/L 98 - 109 mmol/L [facility] CO2 [Moles/Vol] 32 mmol/L 22 - 32 mmol/L [facility] Creatinine [Mass/Vol] 1.26 mg/dL High 0.40 - 1.00 mg/dL [facility] Comment on above: METHOD TRACEABLE TO [facility] STANDARD eGFR (CKD-EPI)non-race dependent 49 Low - PINF [facility] Comment on above: Reported eGFR is based on the CKD-EPI 2020 equation that does not use a race coefficient. Glucose [Mass/Vol] 120 mg/dL High 65 - 99 mg/dL [facility] Interpretation and review of laboratory results Abnormal [facility] Potassium [Moles/Vol] 3.6 mmol/L 3.5 - 5.0 mmol/L [facility] Protein [Mass/Vol] 7.3 g/dL 6.0 - 8.0 g/dL [facility] Sodium [Moles/Vol] 138 mmol/L 134 - 146 mmol/L [facility] Urea nitrogen [Mass/Vol] 21 mg/dL 5 - 27 mg/dL [facility] DIRECT LDLon 03-07-2024 Cholesterol in LDL [Mass/Vol] 161 mg/dL High <130 [facility] Comment on above: Result Comment: LDL <100 mg/dL - Desirable LDL 130-159 mg/dL - Borderline High Risk LDL >160 mg/dL - High Risk Performed By: #### T KENTRELL, 2131-12, KEKE, CBCA #### [facility] ([id number]) [address], [address] [place] [address] HGB A1C (GLYCO-HGB)on 2023 Glucose [Mass/Vol] 123 mg/dL Normal [facility] Comment on above: Performed By: #### T KENTRELL, 2131-12, KEKE, CBCA #### [facility] ([id number]) [address], [address] [place] [address] HbA1c (Bld) [Mass fraction] 5.9 % High 4.4-5.6 [facility] Comment on above: Result Comment: NOTE ADA Guidelines Result HgbA1c Normal : less than 5.7 % Prediabetes : 5.7 % to 6.4 % Diabetes : > 6.4 % Use with caution in patients with abnormal hemoglobin variants as the half-life of red blood cells and in vivo glycation rates are affected. Performed By: #### Lilly PFEIFFER, 2131-12, KEKE, CBCA #### [facility] ([id number]) [address], [address] [place] [address] Hemoglobin A1con 03-07-2024 Average glucose Estimated from glycated hemoglobin (Bld) [Mass/Vol] 123 mg/dL [facility] HbA1c (Bld) [Mass fraction] 5.9 % High 4.4 - 5.6 % [facility] Comment on above: NOTE ADA Guidelines Result HgbA1c Normal : less than 5.7 % Prediabetes : 5.7 % to 6.4 % Diabetes : > 6.4 % Use with caution in patients with abnormal hemoglobin variants as the half-life of red blood cells and in vivo glycation rates are affected. Interpretation and review of laboratory results Abnormal [facility] MICROALBUMIN - ALBUMIN:CREAT ININE URINE RATIOon 03-07-2024 ALB/CREAT RATIO NOT CALCULATED Normal 0.0-30.0 [facility] Comment on above: Result Comment: Result for Albumin/Creatinine Ratio cannot be reliably calculated because urine albumin and or urine creatinine is below the detection limit of the assay. Performed By: #### T KENTRELL, 2131-12, BMP, CBCA #### [facility] ([id number]) [address], [address] [place] [address] Albumin DL <= 20 mg/L (U) [Mass/Vol] mg/dL Normal 0.0-1.9 [facility] Comment on above: Performed By: #### Lilly PFEIFFER, 2131-12, BMP, CBCA #### [facility] ([id number]) [address], [address] [address] URINE CREAT 46.22 mg/dL Normal [facility] Comment on above: Performed By: #### T KENTRELL, 2131-12, BMP, CBCA #### [facility] ([id number]) [address], [address] [address] Microalbumin - Albumin: Crea tinine Urine Ratioon 03-07-2024 Albumin DL <= 20 mg/L (U) [Mass/Vol] mg/dL 0.0 - 1.9 mg/dL [facility] Albumin/Creatinine DL <= 1.0 mg/L (U) [Ratio] NOT CALCULATED [facility] Comment on above: Result for Albumin/Creatinine Ratio cannot be reliably calculated because urine albumin and or urine creatinine is below the detection limit of the assay. Creatinine (U) [Mass/Vol] 46.22 mg/dL [facility] TRIGLYCERIDEon 03-07-2024 Triglyceride [Mass/Vol] 113 mg/dL Normal 27-150 [facility] Comment on above: Performed By: #### T KENTRELL, 2131-12, BMP, CBCA #### [facility] ([id number]) [address], [address] [place] [address] No Panel Informationon 01-25 Eusebia Huertas DO 01/26/2024 3:45 PM L Inj/Asp: L subacromial bursa on 01/26/2024 1:50 PM Indications: pain Details: 21 G needle, posterior approach Medications: 40 mg methylPREDNISolone acetate 40 MG/ML Outcome: tolerated well, no immediate complications Procedure, treatment alternatives, risks and benefits explained, specific risks discussed. Consent was given by the patient. [facility] Chosen[employer]fm e XR Shoulder - left 2 Viewson 01-26-2024 Imaging Result: January 26, 2024 x-rays AP axillary and Y scapula of the left shoulder demonstrate a type 2 acromion. The glenohumeral joint and acromioclavicular joints are intact. There are no fractures identified. The humeral head is centered in the glenoid. Impression: Type 2 acromion Cipriano Huertas D.O. [facility] Study observation (narrative) [facility] JAZIO BASIC METABOLIC PANLon 01-03 Anion gap [Moles/Vol] 9 mmol/L Normal 5-15 [facility] Comment on above: Performed By: #### B MP #### [facility] ([id number]) [address] [facility] [address] [place] [address] Calcium [Mass/Vol] 9.1 mg/dL Normal 8.5-10.5 [facility] Comment on above: Performed By: #### B MP #### [facility] ([id number]) [address] [facility] [place] [address] Chloride [Moles/Vol] 101 mmol/L Normal 98-109 [facility] Comment on above: Performed By: #### B MP #### [facility] ([id number]) [address] [facility], [address] [place] [address] CO2 [Moles/Vol] 31 mmol/L Normal 22-32 [facility] Comment on above: Performed By: #### B MP #### [facility] ([id number]) [address] [facility] [address] [place] [address] Creatinine [Mass/Vol] 1.36 mg/dL High 0.40-1.00 [facility] Comment on above: Result Comment: METH OD TRACEABLE TO IDMS STANDARD Performed By: #### B MP #### [facility] ([id number]) [address], [address] [place] [address] GFR/1.73 sq M.predicted among non-blacks MDRD (S/P/Bld) [Vol rate/Area] 44 mL/min/{1.73_m2} Low >59 [facility] Comment on above: Result Comment: Reported eGFR is based on the CKD-EPI 2020 equation that does not use a race coefficient. Performed By: #### B MP #### [facility] ([id number]) [address] [address] [place] [address] Glucose [Mass/Vol] 134 mg/dL High 65-99 [facility] Comment on above: Performed By: #### B MP #### [facility] ([id number]) [address] [address] [place] [address] Potassium [Moles/Vol] 4.1 mmol/L Normal 3.5-5.0 [facility] Comment on above: Performed By: #### B MP #### [facility] ([id number]) [address] [address] [place] [address] Sodium [Moles/Vol] 141 mmol/L Normal 134-146 [facility] Comment on above: Performed By: #### B MP #### [facility] ([id number]) [address] [address] [place] [address] Urea nitrogen [Mass/Vol] 19 mg/dL Normal 5-27 [facility] Comment on above: Performed By: #### B MP #### [facility] ([id number]) [address] [address] [place] [address] Basic Metabolic Panelon Anion gap [Moles/Vol] 9 mmol/L 5 - 15 mmol/L [facility] Calcium [Mass/Vol] 9.1 mg/dL 8.5 - 10. 5 mg/dL [facility] Chloride [Moles/Vol] 101 mmol/L 98 - 109 mmol/L [facility] CO2 [Moles/Vol] 31 mmol/L 22 - 32 mmol/L [facility] Creatinine [Mass/Vol] 1.36 mg/dL High 0.40 - 1.00 mg/dL [facility] Comment on above: METHOD TRACEABLE TO [facility] STANDARD eGFR (CKD-EPI)non-race dependent 44 Low - PINF [facility] Comment on above: Reported eGFR is based on the CKD-EPI 2020 equation that does not use a race coefficient. Glucose [Mass/Vol] 134 mg/dL High 65 - 99 mg/dL [facility] Interpretation and review of laboratory results Abnormal [facility] Potassium [Moles/Vol] 4.1 mmol/L 3.5 - 5.0 mmol/L [facility] Sodium [Moles/Vol] 141 mmol/L 134 - 146 mmol/L [facility] Urea nitrogen [Mass/Vol] 19 mg/dL 5 - 27 mg/dL [facility] No Panel Informationon 12-28 Eusebia Huertas DO 12/29/2023 3:11 PM Trigger Point Injection (CP[place] [address] [place] [address]): left gluteus tej on 12/29/2023 2:58 PM Indications: pain Details: 21 G needle Medications: 40 mg methylPREDNISolone acetate 40 MG/ML Outcome: tolerated well, no immediate complications Procedure, treatment alternatives, risks and benefits explained, specific risks discussed. [employer] Spine Single viewon 12-28 Imaging Result: Lateral lumbar and thoracic spine x-rays demonstrate to wedge deformities in the thoracic region both of them with a proximally 50 percent collapse. Estimated levels are T6 and T8. Impression: Stable appearance of compression fractures at T6 and T8 no new fractures Cipriano Huertas D.O. [employer] Radiology Study observation (narrative) [facility] JAZIO BASIC METABOLIC PANLon 11-01 Anion gap [Moles/Vol] 7 mmol/L Normal 5-15 [facility] Comment on above: Performed By: #### B LANA, , 2131-12, CBCA #### [facility] ([id number]) [address], [address] [place] [address] Calcium [Mass/Vol] 9.0 mg/dL Normal 8.5-10.5 [facility] Comment on above: Performed By: #### B LANA, , 2131-12, CBCA #### [facility] ([id number]) [address], [address] [place] [address] Chloride [Moles/Vol] 105 mmol/L Normal 98-109 [facility] Comment on above: Performed By: #### B LANA, , 2131-12, CBCA #### [facility] ([id number]) [address], [address] [place] [address] CO2 [Moles/Vol] 28 mmol/L Normal 22-32 [facility] Comment on above: Performed By: #### B LANA, , 2131-12, CBCA #### [facility] ([id number]) [address], [address] [place] [address] Creatinine [Mass/Vol] 1.23 mg/dL High 0.40-1.00 [facility] Comment on above: Result Comment: METH OD TRACEABLE TO IDMS STANDARD Performed By: #### B LANA, , 2131-12, CBCA #### [facility] ([id number]) [address], [address] [place] [address] GFR/1.73 sq M.predicted among non-blacks MDRD (S/P/Bld) [Vol rate/Area] 50 mL/min/{1.73_m2} Low >59 [facility] Comment on above: Result Comment: Reported eGFR is based on the CKD-EPI 2020 equation that does not use a race coefficient. Performed By: #### B LANA, , 2131-12, CBCA #### [facility] ([id number]) [address], [address] [place] [address] Glucose [Mass/Vol] 88 mg/dL Normal 65-99 [facility] Comment on above: Performed By: #### B LANA, , 2131-12, CBCA #### [facility] ([id number]) [address] [address] [place] [address] Potassium [Moles/Vol] 3.9 mmol/L Normal 3.5-5.0 [facility] Comment on above: Performed By: #### B LANA, , 2131-12, CBCA #### [facility] ([id number]) [address] [address] [place] [address] Sodium [Moles/Vol] 140 mmol/L Normal 134-146 [facility] Comment on above: Performed By: #### B LANA, , 2131-12, CBCA #### [facility] ([id number]) [address] [address] [place] [address] Urea nitrogen [Mass/Vol] 17 mg/dL Normal 5-27 [facility] Comment on above: Performed By: #### B LANA, , 2131-12, CBCA #### [facility] ([id number]) [address] [address] [place] [address] CBC AND AUTO DIFFon 07-08-20 24 ABSOLUTE BASOPHIL 0.1 X10E9/L Normal 0.0-0.2 [facility] Comment on above: Performed By: #### B LANA, , 2131-12, CBCA #### [facility] ([id number]) [address] [address] [place] [address] ABSOLUTE NEUTROPHIL 5.8 X10E9/L Normal 1.5-6.6 [facility] Comment on above: Performed By: #### B LANA, , 2131-12, CBCA #### [facility] ([id number]) [address] [place] [address] Basophils/100 WBC (Bld) 0.6 % Normal [facility] Comment on above: Performed By: #### B LANA, , 2131-12, CBCA #### [facility] ([id number]) [address] [address] [place] [address] Eosinophils (Bld) [#/Vol] 0.2 10*3/uL Normal 0.0-0.4 [facility] Comment on above: Performed By: #### B LANA, , 2131-12, CBCA #### [facility] ([id number]) [address], [address] [place] [address] Eosinophils/100 WBC (Bld) 1.9 % Normal [facility] Comment on above: Performed By: #### B LANA, , 2131-12, CBCA #### [facility] ([id number]) [address] [address] [place] [address] Erythrocyte distribution width (RBC) [Ratio] 17.0 % High 11.5-15.0 [facility] Comment on above: Performed By: #### B LANA, , 2131-12, CBCA #### [facility] ([id number]) [address] [facility] [address] [place] [address] Hematocrit (Bld) [Volume fraction] 33.9 % Low 35-47 [facility] Comment on above: Performed By: #### B LANA, , 2131-12, CBCA #### [facility] ([id number]) [address], [address] [place] [address] Hemoglobin (Bld) [Mass/Vol] 10.6 g/dL Low 11.7-15.5 [facility] Comment on above: Performed By: #### B LANA, , 2131-12, CBCA #### [facility] ([id number]) [address], [facility] [address] [place] [address] Lymphocytes (Bld) [#/Vol] 2.3 10*3/uL Normal 1.0-3.5 [facility] Comment on above: Performed By: #### B LANA, , 2131-12, CBCA #### [facility] ([id number]) [address], [facility] [address] [place] [address] Lymphocytes/100 WBC (Bld) 25.6 % Normal [facility] Comment on above: Performed By: #### B LANA, , 2131-12, CBCA #### [facility] ([id number]) [address] [place] [address] MCH (RBC) [Entitic mass] 26.1 pg Low 27-34 [facility] Comment on above: Performed By: #### B LANA, , 2131-12, CBCA #### [facility] ([id number]) [address] [place] [address] MCHC (RBC) [Mass/Vol] 31.2 g/dL Low 32-36 [facility] Comment on above: Performed By: #### B LANA, , 2131-12, CBCA #### [facility] ([id number]) [address], [address] [place] [address] MCV (RBC) [Entitic vol] 84 fL Normal 80-100 [facility] Comment on above: Performed By: #### B LANA, , 2131-12, CBCA #### [facility] ([id number]) [address], [address] [place] [address] Monocytes (Bld) [#/Vol] 0.6 10*3/uL Normal 0-0.9 [facility] Comment on above: Performed By: #### B LANA, , 2131-12, CBCA #### [facility] ([id number]) [address], [facility] [address] [place] [address] Monocytes/100 WBC (Bld) 6.8 % Normal [facility] Comment on above: Performed By: #### B LANA, , 2131-12, CBCA #### [facility] ([id number]) [address], [facility] [address] [place] [address] Neutrophils/100 WBC (Bld) 65.1 % Normal [facility] Comment on above: Performed By: #### B LANA, , 2131-12, CBCA #### [facility] ([id number]) [address], [facility] [address] [place] [address] Platelet mean volume (Bld) [Entitic vol] 8.1 fL Normal 7-12 [facility] Comment on above: Performed By: #### B LANA, , 2131-12, CBCA #### [facility] ([id number]) [address], [facility] [address] [place] [address] Platelets (Bld) [#/Vol] 287 10*3/uL Normal 150-450 [facility] Comment on above: Performed By: #### B MP, , 2131-12, CBCA #### [facility] ([id number]) [address], [address] [place] [address] RBC COUNT 4.05 X10E12/L Normal 3.80-5.20 [facility] Comment on above: Performed By: #### B LANA, , 2131-12, CBCA #### [facility] ([id number]) [address], [address] [place] [address] WBC (Bld) [#/Vol] 9.0 10*3/uL Normal 4.0-11.0 [facility] Comment on above: Performed By: #### B MP, , 2131-12, CBCA #### [facility] ([id number]) [address], [address] [place] [address] MAGNESIUMon 11-02-2023 Magnesium [Mass/Vol] 2.2 mg/dL Normal 1.8-2.6 [facility] Comment on above: Performed By: #### B LANA, , 2131-12, CBCA #### [facility] ([id number]) [address], [address] [place] [address] VITAMIN B12on 11-02-2023 Cobalamin (Vitamin B12) [Mass/Vol] 370 pg/mL Normal 180-914 [facility] Comment on above: Performed By: #### B LANA, , 2131-12, CBCA #### [facility] ([id number]) [address], [address] [place] [address] BASIC METABOLIC PANLon 09-29 Anion gap [Moles/Vol] 14 mmol/L Normal 5-15 [facility] Comment on above: Performed By: #### T HYR, 2131-12, BMP, CBCA #### [facility] ([id number]) [address], [address] [place] [address] Calcium [Mass/Vol] 9.4 mg/dL Normal 8.5-10.5 [facility] Comment on above: Performed By: #### T HYR, 2131-12, BMP, CBCA #### [facility] ([id number]) [address], [address] [place] [address] Chloride [Moles/Vol] 104 mmol/L Normal 98-109 [facility] Comment on above: Performed By: #### Lilly PFEIFFER 2131-12KEKE CBCA #### [facility] ([id number]) [address], [address] [place] [address] CO2 [Moles/Vol] 27 mmol/L Normal 22-32 [facility] Comment on above: Performed By: #### Lilly PFEIFFER 2131-12, KEKE, CBCMindi #### [facility] ([id number]) [address], [address] [place] [address] Creatinine [Mass/Vol] 1.85 mg/dL High 0.40-1.00 [facility] Comment on above: Result Comment: METH OD TRACEABLE TO IDMS STANDARD Performed By: #### Lilly PFEIFFER 2131-12KEKE CBCA #### [facility] ([id number]) [address], [address] [place] [address] GFR/1.73 sq M.predicted among non-blacks MDRD (S/P/Bld) [Vol rate/Area] 31 mL/min/{1.73_m2} Low >59 [facility] Comment on above: Result Comment: Reported eGFR is based on the CKD-EPI 2020 equation that does not use a race coefficient. Performed By: #### Lilly PFEIFFER 2131-12, ANNA DAVIES #### [facility] ([id number]) [address], [address] [place] [address] Glucose [Mass/Vol] 128 mg/dL High 65-99 [facility] Comment on above: Performed By: #### Lilly PFEIFFER 2131-12, KEKE CBCMindi #### [facility] ([id number]) [address], [address] [place] [address] Potassium [Moles/Vol] 3.9 mmol/L Normal 3.5-5.0 [facility] Comment on above: Performed By: #### T KENTRELL, 2131-12, BMP, CBCA #### [facility] ([id number]) [address], [address] [place] [address] Sodium [Moles/Vol] 145 mmol/L Normal 134-146 [facility] Comment on above: Performed By: #### T KENTRELL, 2131-12, BMP, CBCA #### [facility] ([id number]) [address], [address] [place] [address] Urea nitrogen [Mass/Vol] 36 mg/dL High 5-27 [facility] Comment on above: Performed By: #### T KENTRELL, 2131-12, BMP, CBCA #### [facility] ([id number]) [address], [address] [place] [address] Basic Metabolic Panelon 06-0 Anion gap [Moles/Vol] 14 mmol/L 5 - 15 mmol/L [facility] Calcium [Mass/Vol] 9.4 mg/dL 8.5 - 10. 5 mg/dL [facility] Chloride [Moles/Vol] 104 mmol/L 98 - 109 mmol/L [facility] CO2 [Moles/Vol] 27 mmol/L 22 - 32 mmol/L [facility] Creatinine [Mass/Vol] 1.85 mg/dL High 0.40 - 1.00 mg/dL [facility] Comment on above: METHOD TRACEABLE TO IDAR STANDARD eGFR (CKD-EPI)non-race dependent 31 Low - PINF [facility] Comment on above: Reported eGFR is based on the CKD-EPI 2020 equation that does not use a race coefficient. Glucose [Mass/Vol] 128 mg/dL High 65 - 99 mg/dL [facility] Interpretation and review of laboratory results Abnormal [facility] Potassium [Moles/Vol] 3.9 mmol/L 3.5 - 5.0 mmol/L [facility] Sodium [Moles/Vol] 145 mmol/L 134 - 146 mmol/L [facility] Urea nitrogen [Mass/Vol] 36 mg/dL High 5 - 27 mg/dL [facility] CBC AND AUTO DIFFon 09-30-19 24 ABSOLUTE BASOPHIL 0.0 X10E9/L Normal 0.0-0.2 [facility] Comment on above: Performed By: #### T KENTRELL 2131-12, BMP, CBCA #### [facility] ([id number]) [address], [address] [place] [address] ABSOLUTE NEUTROPHIL 5.8 X10E9/L Normal 1.5-6.6 [facility] Comment on above: Performed By: #### Lilly PFEIFFER 2131-12, BMP, CBCA #### [facility] ([id number]) [address], [address] [place] [address] Basophils/100 WBC (Bld) 0.4 % Normal [facility] Comment on above: Performed By: #### Lilly PFEIFFER 2131-12, BMP, CBCA #### [facility] ([id number]) [address], [address] [place] [address] Eosinophils (Bld) [#/Vol] 0.0 10*3/uL Normal 0.0-0.4 [facility] Comment on above: Performed By: #### Lilly PFEIFFER 2131-12, BMP, CBCA #### [facility] ([id number]) [address], [address] [place] [address] Eosinophils/100 WBC (Bld) 0.0 % Normal [facility] Comment on above: Performed By: #### T KENTRELL 2131-12, BMP, CBCA #### [facility] ([id number]) [address], [address] [place] [address] Erythrocyte distribution width (RBC) [Ratio] 16.2 % High 11.5-15.0 [facility] Comment on above: Performed By: #### T KENTRELL 2131-12, BMP, CBCA #### [facility] ([id number]) [address], [address] [place] [address] Hematocrit (Bld) [Volume fraction] 35.1 % Normal 35-47 [facility] Comment on above: Performed By: #### T KENTRELL, 2131-12, BMP, CBCA #### [facility] ([id number]) [address], [facility] [address] [place] [address] Hemoglobin (Bld) [Mass/Vol] 11.3 g/dL Low 11.7-15.5 [facility] Comment on above: Performed By: #### Lilly PFEIFFER 2131-12, BMP, CBCA #### [facility] ([id number]) [address], [address] [address] Lymphocytes (Bld) [#/Vol] 1.1 10*3/uL Normal 1.0-3.5 [facility] Comment on above: Performed By: #### Lilly PFEIFFER, 2131-12, BMP, CBCA #### [facility] ([id number]) [address], [address] [address] Lymphocytes/100 WBC (Bld) 15.7 % Normal [facility] Comment on above: Performed By: #### T KENTRELL 2131-12, BMP, CBCA #### [facility] ([id number]) [address], [facility] [address] [place] [address] MCH (RBC) [Entitic mass] 27.0 pg Normal 27-34 [facility] Comment on above: Performed By: #### T KENTRELL, 2131-12, BMP, CBCA #### [facility] ([id number]) [address], [facility] [address] [place] [address] MCHC (RBC) [Mass/Vol] 32.2 g/dL Normal 32-36 [facility] Comment on above: Performed By: #### T KENTRELL, 2131-12, BMP, CBCA #### [facility] ([id number]) [address], [address] [place] [address] MCV (RBC) [Entitic vol] 84 fL Normal 80-100 [facility] Comment on above: Performed By: #### Lilly PFEIFFER 2131-12, BMP, CBCA #### [facility] ([id number]) [address], [address] [place] [address] Monocytes (Bld) [#/Vol] 0.2 10*3/uL Normal 0-0.9 [facility] Comment on above: Performed By: #### Lilly PFEIFFER 2131-12, BMP, CBCA #### [facility] ([id number]) [address], [address] [place] [address] Monocytes/100 WBC (Bld) 2.3 % Normal [facility] Comment on above: Performed By: #### Lilly PFEIFFER 2131-12, BMP, CBCA #### [facility] ([id number]) [address], [address] [place] [address] Neutrophils/100 WBC (Bld) 81.6 % Normal [facility] Comment on above: Performed By: #### Lilly PFEIFFER 2131-12, BMP, CBCA #### [facility] ([id number]) [address], [address] [place] [address] Platelet mean volume (Bld) [Entitic vol] 8.1 fL Normal 7-12 [facility] Comment on above: Performed By: #### Lilly PFEIFFER 2131-12, BMP, CBCA #### [facility] ([id number]) [address], [address] [place] [address] Platelets (Bld) [#/Vol] 380 10*3/uL Normal 150-450 [facility] Comment on above: Performed By: #### Lilly PFEIFFER 2131-12, BMP, CBCA #### [facility] ([id number]) [address], [address] [place] [address] RBC COUNT 4.19 X10E12/L Normal 3.80-5.20 [facility] Comment on above: Performed By: #### T HYR, 2131-12, BMP, CBCA #### [facility] ([id number]) [address] [facility] [address] [place] [address] WBC (Bld) [#/Vol] 7.2 10*3/uL Normal 4.0-11.0 [facility] Comment on above: Performed By: #### T HYR, 2131-12, BMP, CBCA #### [facility] ([id number]) [address], [address] [place] [address] CBC auto differentialon 06-0 Basophils (Bld) [#/Vol] 0.0 10*3/uL [facility] Basophils/100 WBC (Bld) 0.4 % [facility] Eosinophils (Bld) [#/Vol] 0.0 10*3/uL [facility] Eosinophils/100 WBC (Bld) 0.0 % [facility] Erythrocyte distribution width (RBC) [Ratio] 16.2 % High 11.5 - 15.0 % [facility] Hematocrit (Bld) [Volume fraction] 35.1 % 35 - 47 % [facility] Hemoglobin (Bld) [Mass/Vol] 11.3 g/dL Low 11.7 - 15.5 g/dL [facility] Interpretation and review of laboratory results Abnormal [facility] Lymphocytes (Bld) [#/Vol] 1.1 10*3/uL [facility] Lymphocytes/100 WBC (Bld) 15.7 % [facility] MCH (RBC) [Entitic mass] 27.0 pg 27 - 34 pg [facility] MCHC (RBC) [Mass/Vol] 32.2 g/dL 32 - 36 g/dL [facility] MCV (RBC) [Entitic vol] 84 fL 80 - 100 fL [facility] Monocytes (Bld) [#/Vol] 0.2 10*3/uL [facility] Monocytes/100 WBC (Bld) 2.3 % [facility] Neutrophils (Bld) [#/Vol] 5.8 10*3/uL [facility] Neutrophils/100 WBC (Bld) 81.6 % [facility] Platelet mean volume (Bld) [Entitic vol] 8.1 fL 7 - 12 fL [facility] Platelets (Bld) [#/Vol] 380 10*3/uL [facility] RBC (Bld) [#/Vol] 4.19 10*6/uL [facility] WBC corrected for nucl RBC Auto (Bld) [#/Vol] 7.2 [facility] Cobalamin (Vitamin B12) [Mas s/Vol]on 09-30-2023 [facility] THYROID PROFILEon 09-30-2023 Free T4 [Mass/Vol] 1.19 ng/dL Normal 0.61-1.60 [facility] Comment on above: Performed By: #### T HYDasha, 2131-12, BMP, CBCA #### [facility] ([id number]) [address] [place] [address], [address] [place] [address] TSH 0.11 uIU/mL Low 0.49-4.67 [facility] Comment on above: Performed By: #### T KENTRELL, 2131-12, BMP, CBCA #### [facility] ([id number]) [address] [place] [address], [address] [place] [address] Thyroid profile includes TSH FT4on 09-30-2023 Free T4 [Mass/Vol] 1.19 ng/dL 0.61 - 1.60 ng/dL [facility] Interpretation and review of laboratory results Abnormal [facility] TSH Qn 0.11 m[IU]/L Low [facility] VITAMIN B12on 09-30-2023 Cobalamin (Vitamin B12) [Mass/Vol] 204 pg/mL Normal 180-914 [facility] Comment on above: Performed By: #### T HYR, 2131-12, BMP, CBCA #### [facility] ([id number]) [address], [address] [place] [address] Vitamin B12on 09-30-2023 Cobalamin (Vitamin B12) [Mass/Vol] 204 pg/mL 180 - 914 pg/mL [facility] POCT Influenza A/Influenza B /SARS-COV-2 Veritoron 09-24-2023 External Poct Influenza A Antigen Negative [facility] External Poct Influenza B Antigen Negative [facility] SARS-CoV-2 (COVID-19) Ag IA.rapid Ql (Resp) Negative [facility] XR Chest PA and Lateralon Clinical [...] Tristen Neely MD on 09/24/2023 11:13 PM [facility] Tristen Neely M D - 09/24/2023 Clinical [...] Tristen Neely MD on 09/24/2023 11:13 PM [facility] Radiology Study observation (narrative) [facility] XR Chest PA and LateralOrder ed By: Tristen Neely on 09-24-2023 [facility] Work Phone: Basic Metabolic Panelon 04-0 Anion gap [Moles/Vol] 8 mmol/L 5 - 15 mmol/L [facility] Calcium [Mass/Vol] 9.0 mg/dL 8.5 - 10. 5 mg/dL [facility] Chloride [Moles/Vol] 100 mmol/L 98 - 109 mmol/L [facility] CO2 [Moles/Vol] 28 mmol/L 22 - 32 mmol/L [facility] Creatinine [Mass/Vol] 1.06 mg/dL High 0.40 - 1.00 mg/dL [facility] Comment on above: METHOD TRACEABLE TO IDAR STANDARD eGFR (CKD-EPI)non-race dependent 60 - PINF [facility] Comment on above: Reported eGFR is based on the CKD-EPI 2020 equation that does not use a race coefficient. Glucose [Mass/Vol] 148 mg/dL High 65 - 99 mg/dL [facility] Interpretation and review of laboratory results Abnormal [facility] Potassium [Moles/Vol] 3.4 mmol/L Low 3.5 - 5.0 mmol/L [facility] Sodium [Moles/Vol] 136 mmol/L 134 - 146 mmol/L [facility] Urea nitrogen [Mass/Vol] 24 mg/dL 5 - 27 mg/dL [facility] Basic Metabolic Panelon 03-3 Anion gap [Moles/Vol] 9 mmol/L 5 - 15 mmol/L [facility] Calcium [Mass/Vol] 8.8 mg/dL 8.5 - 10. 5 mg/dL [facility] Chloride [Moles/Vol] 103 mmol/L 98 - 109 mmol/L [facility] CO2 [Moles/Vol] 27 mmol/L 22 - 32 mmol/L [facility] Creatinine [Mass/Vol] 1.18 mg/dL High 0.40 - 1.00 mg/dL [facility] Comment on above: METHOD TRACEABLE TO [facility] STANDARD eGFR (CKD-EPI)non-race dependent 53 Low - PINF [facility] Comment on above: Reported eGFR is based on the CKD-EPI 2021 equation that does not use a race coefficient. Glucose [Mass/Vol] 157 mg/dL High 65 - 99 mg/dL [facility] Interpretation and review of laboratory results Abnormal [facility] Potassium [Moles/Vol] 3.7 mmol/L 3.5 - 5.0 mmol/L [facility] Sodium [Moles/Vol] 139 mmol/L 134 - 146 mmol/L [facility] Urea nitrogen [Mass/Vol] 18 mg/dL 5 - 27 mg/dL [facility] Basic Metabolic Panelon 06-27 Anion gap [Moles/Vol] 5 mmol/L 5 - 15 mmol/L [facility] Calcium [Mass/Vol] 8.7 mg/dL 8.5 - 10. 5 mg/dL [facility] Chloride [Moles/Vol] 104 mmol/L 98 - 109 mmol/L [facility] CO2 [Moles/Vol] 27 mmol/L 22 - 32 mmol/L [facility] Creatinine [Mass/Vol] 1.57 mg/dL High 0.40 - 1.00 mg/dL [facility] Comment on above: METHOD TRACEABLE TO [facility] STANDARD eGFR (CKD-EPI)non-race dependent 37 Low - PINF [facility] Comment on above: Reported eGFR is based on the CKD-EPI 2021 equation that does not use a race coefficient. Glucose [Mass/Vol] 107 mg/dL High 65 - 99 mg/dL [facility] Interpretation and review of laboratory results Abnormal [facility] Potassium [Moles/Vol] 3.6 mmol/L 3.5 - 5.0 mmol/L [facility] Sodium [Moles/Vol] 136 mmol/L 134 - 146 mmol/L [facility] Urea nitrogen [Mass/Vol] 21 mg/dL 5 - 27 mg/dL [facility] Blood gas, venouson 07-25-19 Arterial patency Wrist artery --pre arterial puncture [facility] Base deficit (Bld) [Moles/Vol] 1.0 mmol/L [facility] CO2 (BldV) [Partial pressure] 67.8 mm[Hg] High [facility] HCO3 (Bld) [Moles/Vol] 28.0 mmol/L High [facility] Interpretation and review of laboratory results Abnormal [facility] Oxygen (BldV) [Partial pressure] 43 mm[Hg] [facility] Oxygen therapy source and amount [CARE] NC [facility] Oxygen/Inspired gas setting [Volume Fraction] Ventilator 28 % [facility] pH (BldV) 7.224 [pH] Low 7.320 - 7.420 [facility] SaO2% Calculated from oxygen partial pressure (BldV) [Mass fraction] 68.0 % Low 80.0 - PINF % [facility] Specimen site Narrative N/A [facility] Specimen type Nom (Spec) VENOUS [facility] CBC auto differentialon 06-27 Basophils (Bld) [#/Vol] 0.1 10*3/uL [facility] Basophils/100 WBC (Bld) 0.6 % [facility] Eosinophils (Bld) [#/Vol] 0.2 10*3/uL [facility] Eosinophils/100 WBC (Bld) 2.2 % [facility] Erythrocyte distribution width (RBC) [Ratio] 16.6 % High 11.5 - 15.0 % [facility] Hematocrit (Bld) [Volume fraction] 35.0 % 35 - 47 % [facility] Hemoglobin (Bld) [Mass/Vol] 11.3 g/dL Low 11.7 - 15.5 g/dL [facility] Interpretation and review of laboratory results Abnormal [facility] Lymphocytes (Bld) [#/Vol] 2.6 10*3/uL [facility] Lymphocytes/100 WBC (Bld) 25.4 % [facility] MCH (RBC) [Entitic mass] 29.3 pg 27 - 34 pg [facility] MCHC (RBC) [Mass/Vol] 32.3 g/dL 32 - 36 g/dL [facility] MCV (RBC) [Entitic vol] 91 fL 80 - 100 fL [facility] Monocytes (Bld) [#/Vol] 0.6 10*3/uL [facility] Monocytes/100 WBC (Bld) 5.7 % [facility] Neutrophils (Bld) [#/Vol] 6.7 10*3/uL High [facility] Neutrophils/100 WBC (Bld) 66.1 % [facility] Platelet mean volume (Bld) [Entitic vol] 7.9 fL 7 - 12 fL [facility] Platelets (Bld) [#/Vol] 308 10*3/uL [facility] RBC (Bld) [#/Vol] 3.86 10*6/uL [facility] WBC corrected for nucl RBC Auto (Bld) [#/Vol] 10.2 [facility] Critical Careon 07-25-2023 Mary Lock MD 06/27 [...] treatments and interventions and examination of patient [facility] ECG 12 leadon 07-25-2023 TRACEMASTERVUE [facility] Laboratory - Microbiology an d Antimicrobial susceptibilityon 07-25-2023 FLUAV+FLUBV RNA HUBERT+probe Ql (Unsp spec) Negative Negative^N egative [facility] Lactate (P yong) [Moles/Vol]o n 07-25-2023 [facility] Lactate w/ Reflexon 07-25-19 Lactate (P yong) [Moles/Vol] 1.1 mmol/L 0.4 - 2.0 mmol/L [facility] Comment on above: Result did not trigger repeat Lactate, re-order if needed. SARS/FLU A+B/RSV by NAAT/Mol ecular (M4RT Collection Tube)on 07-25-2023 RSV RNA HUBERT+probe Nom (Unsp spec) Negative Negative^N egative [facility] SARS-CoV-2 (COVID-19) RNA HUBERT+probe Ql (Resp) Not detected Not Detected^N ot Detected [facility] Comment on above: NOTE The [employer]pert [employer] [...] operators who are performing tests using either [employer] or [employer] [facility] systems and is limited to laboratories that [...] specimen repeat. Fact Sheet for Healthcare Providers: https://www.fda.gov/media/653580/download Fact Sheet for Patients: https://www.fda.gov/media/623886/download [facility] Troponin Ion 07-25-2023 Troponin I.cardiac [Mass/Vol] 0.01 ng/mL 0.00 - 0.04 ng/mL [facility] Troponin I.cardiac [Mass/Vol ]on 07-25-2023 [facility] Chest PA and Lateralon Abdelrahman Patel MD - 07/25/2023 Procedure: Chest x-ray performed Number of views:2 History:Shortness of breath Comparison:07/24/2023 Findings: The heart and lungs show no acute findings, and the mediastinum and satnam are grossly negative . Impression: 1. No acute change. Finalized by Abdelrahman Patel MD on 07/25/2023 5:16 PM [facility] Radiology Study observation (narrative) [facility] XR Chest PA and LateralOrder ed By: Abdelrahman Patel on 07-25-2023 [facility] Work Phone: Basic Metabolic Panelon 02-0 Anion gap [Moles/Vol] 8 mmol/L 5 - 15 mmol/L [facility] Calcium [Mass/Vol] 9.5 mg/dL 8.5 - 10. 5 mg/dL [facility] Chloride [Moles/Vol] 102 mmol/L 98 - 109 mmol/L [facility] CO2 [Moles/Vol] 32 mmol/L 22 - 32 mmol/L [facility] Creatinine [Mass/Vol] 1.27 mg/dL High 0.40 - 1.00 mg/dL [facility] Comment on above: METHOD TRACEABLE TO IDMS STANDARD eGFR (CKD-EPI)non-race dependent 48 Low - PINF [facility] Comment on above: Reported eGFR is based on the CKD-EPI 2020 equation that does not use a race coefficient. Glucose [Mass/Vol] 87 mg/dL 65 - 99 mg/dL [facility] Interpretation and review of laboratory results Abnormal [facility] Potassium [Moles/Vol] 4.0 mmol/L 3.5 - 5.0 mmol/L [facility] Sodium [Moles/Vol] 142 mmol/L 134 - 146 mmol/L [facility] Urea nitrogen [Mass/Vol] 15 mg/dL 5 - 27 mg/dL [facility] CBC auto differentialon Basophils (Bld) [#/Vol] 0.1 10*3/uL [facility] Basophils/100 WBC (Bld) 0.6 % [facility] Eosinophils (Bld) [#/Vol] 0.1 10*3/uL [facility] Eosinophils/100 WBC (Bld) 1.3 % [facility] Erythrocyte distribution width (RBC) [Ratio] 19.3 % High 11.5 - 15.0 % [facility] Hematocrit (Bld) [Volume fraction] 35.7 % 35 - 47 % [facility] Hemoglobin (Bld) [Mass/Vol] 11.5 g/dL Low 11.7 - 15.5 g/dL [facility] Interpretation and review of laboratory results Abnormal [facility] Lymphocytes (Bld) [#/Vol] 1.5 10*3/uL [facility] Lymphocytes/100 WBC (Bld) 14.5 % [facility] MCH (RBC) [Entitic mass] 29.3 pg 27 - 34 pg [facility] MCHC (RBC) [Mass/Vol] 32.2 g/dL 32 - 36 g/dL [facility] MCV (RBC) [Entitic vol] 91 fL 80 - 100 fL [facility] Monocytes (Bld) [#/Vol] 0.6 10*3/uL [facility] Monocytes/100 WBC (Bld) 5.8 % [facility] Neutrophils (Bld) [#/Vol] 8.1 10*3/uL High [facility] Neutrophils/100 WBC (Bld) 77.8 % [facility] Platelet mean volume (Bld) [Entitic vol] 8.9 fL 7 - 12 fL [facility] Platelets (Bld) [#/Vol] 321 10*3/uL [facility] RBC (Bld) [#/Vol] 3.92 10*6/uL [facility] WBC corrected for nucl RBC Auto (Bld) [#/Vol] 10.5 [facility] TSH with Reflexon 06-01-2023 TSH Qn 0.80 m[IU]/L [facility] CBC AND AUTO DIFFon 04-29-19 ABSOLUTE BASOPHIL 0.1 X10E9/L Normal 0.0-0.2 [facility] Comment on above: Performed By: #### C LANA, 54281-2, , CBCA #### [facility] ([id number]) [address] [facility] [place] [address] ABSOLUTE NEUTROPHIL 6.7 X10E9/L High 1.5-6.6 [facility] Comment on above: Performed By: #### C LANA, 24017-2, , CBCA #### [facility] ([id number]) [address] [facility] [place] [address] Basophils/100 WBC (Bld) 1.2 % Normal [facility] Comment on above: Performed By: #### Javid SCHWARTZ, 72331-5, , CBCA #### [facility] ([id number]) [address] [facility] [place] [address] Eosinophils (Bld) [#/Vol] 0.2 10*3/uL Normal 0.0-0.4 [facility] Comment on above: Performed By: #### C LANA, 01610-6, , CBCA #### [facility] ([id number]) [address] [facility] [place] [address] Eosinophils/100 WBC (Bld) 2.2 % Normal [facility] Comment on above: Performed By: #### Javid SCHWARTZ, 29270-6, , CBCA #### [facility] ([id number]) [address] [place] [address] Erythrocyte distribution width (RBC) [Ratio] 17.3 % High 11.5-15.0 [facility] Comment on above: Performed By: #### C LANA, 46255-8, , CBCA #### [facility] ([id number]) [address] [place] [address] Hematocrit (Bld) [Volume fraction] 40.6 % Normal 35-47 [facility] Comment on above: Performed By: #### C LANA, 40886-8, , CBCA #### [facility] ([id number]) [address] [place] [address] Hemoglobin (Bld) [Mass/Vol] 13.3 g/dL Normal 11.7-15.5 [facility] Comment on above: Performed By: #### C LANA, 80270-8, , CBCA #### [facility] ([id number]) [address] [place] [address] Lymphocytes (Bld) [#/Vol] 2.4 10*3/uL Normal 1.0-3.5 [facility] Comment on above: Performed By: #### C LANA, 69765-8, , CBCA #### [facility] ([id number]) [address] [place] [address] Lymphocytes/100 WBC (Bld) 22.7 % Normal [facility] Comment on above: Performed By: #### C LANA, 43355-6, , CBCA #### [facility] ([id number]) [address] [place] [address] MCH (RBC) [Entitic mass] 28.4 pg Normal 27-34 [facility] Comment on above: Performed By: #### C LANA, 42336-0, , CBCA #### [facility] ([id number]) [address] [place] [address] MCHC (RBC) [Mass/Vol] 32.7 g/dL Normal 32-36 [facility] Comment on above: Performed By: #### C LANA, 64710-5, , CBCA #### [facility] ([id number]) [address] [facility] [place] [address] MCV (RBC) [Entitic vol] 87 fL Normal 80-100 [facility] Comment on above: Performed By: #### C LANA, 23211-2, , CBCA #### [facility] ([id number]) [address] [facility] [place] [address] Monocytes (Bld) [#/Vol] 1.2 10*3/uL High 0-0.9 [facility] Comment on above: Performed By: #### C LANA, 61938-8, , CBCA #### [facility] ([id number]) [address] [facility] [place] [address] Monocytes/100 WBC (Bld) 11.2 % Normal [facility] Comment on above: Performed By: #### C LANA, 85303-6, , CBCA #### [facility] ([id number]) [address] [facility] [place] [address] Neutrophils/100 WBC (Bld) 62.7 % Normal [facility] Comment on above: Performed By: #### Javid SCHWARTZ, 50928-7, , CBCA #### [facility] ([id number]) [address] [place] [address] Platelet mean volume (Bld) [Entitic vol] 8.3 fL Normal 7-12 [facility] Comment on above: Performed By: #### C LANA, 93682-2, , CBCA #### [facility] ([id number]) [address] [facility] [place] [address] Platelets (Bld) [#/Vol] 301 10*3/uL Normal 150-450 [facility] Comment on above: Performed By: #### C LANA, 29558-1, , CBCA #### [facility] ([id number]) [address] [place] [address] RBC COUNT 4.68 X10E12/L Normal 3.80-5.20 [facility] Comment on above: Performed By: #### C LANA, 49426-0, 84759-7, CBCA #### [facility] ([id number]) [address] [place] [address] WBC (Bld) [#/Vol] 10.7 10*3/uL Normal 4.0-11.0 [facility] Comment on above: Performed By: #### C LANA, 39122-7, , CBCA #### [facility] ([id number]) [address] [place] [address] COMPREHENSIVE METABOLIC PANE Meek 04-29-2023 Albumin [Mass/Vol] 3.5 g/dL Normal 3.2-5.3 [facility] Comment on above: Performed By: #### C LANA, 06552-1, , CBCA #### [facility] ([id number]) [address] [place] [address] ALP [Catalytic activity/Vol] 72 U/L Normal 39-130 [facility] Comment on above: Performed By: #### C LANA, 05818-4, , CBCA #### [facility] ([id number]) [address] [place] [address] ALT [Catalytic activity/Vol] 42 U/L High 0-31 [facility] Comment on above: Performed By: #### C LANA, 13477-2, , CBCA #### [facility] ([id number]) [address] [place] [address] Anion gap [Moles/Vol] 9 mmol/L Normal 5-15 [facility] Comment on above: Performed By: #### C LANA, 64014-6, , CBCA #### [facility] ([id number]) [address] [place] [address] AST [Catalytic activity/Vol] 22 U/L Normal 0-41 [facility] Comment on above: Performed By: #### C LANA, 27196-9, , CBCA #### [facility] ([id number]) [address] [place] [address] Bilirubin [Mass/Vol] 0.8 mg/dL Normal 0.3-1.2 [facility] Comment on above: Performed By: #### C LANA, 64754-8, , CBCA #### [facility] ([id number]) [address] [place] [address] Calcium [Mass/Vol] 10.2 mg/dL Normal 8.5-10.5 [facility] Comment on above: Performed By: #### C LANA, 98215-8, , CBCA #### [facility] ([id number]) [address] [place] [address] Chloride [Moles/Vol] 105 mmol/L Normal 98-109 [facility] Comment on above: Performed By: #### C LANA, 48096-7, , CBCA #### [facility] ([id number]) [address] [place] [address] CO2 [Moles/Vol] 22 mmol/L Normal 22-32 [facility] Comment on above: Performed By: #### C LANA, 54427-5, , CBCA #### [facility] ([id number]) [address] [place] [address] Creatinine [Mass/Vol] 1.29 mg/dL High 0.40-1.00 [facility] Comment on above: Result Comment: METH OD TRACEABLE TO IDMS STANDARD Performed By: #### C LANA, 12456-5, , CBCA #### [facility] ([id number]) [address] [place] [address] GFR/1.73 sq M.predicted among non-blacks MDRD (S/P/Bld) [Vol rate/Area] 48 mL/min/{1.73_m2} Low >59 [facility] Comment on above: Result Comment: Reported eGFR is based on the CKD-EPI 2020 equation that does not use a race coefficient. Performed By: #### C LANA, 88046-7, , CBCA #### [facility] ([id number]) [address] [place] [address] Glucose [Mass/Vol] 116 mg/dL High 65-99 [facility] Comment on above: Performed By: #### C LANA, 63191-4, , CBCA #### [facility] ([id number]) [address] [place] [address] Potassium [Moles/Vol] 3.2 mmol/L Low 3.5-5.0 [facility] Comment on above: Performed By: #### C LANA, 71504-1, , CBCA #### [facility] ([id number]) [address] [place] [address] Protein [Mass/Vol] 7.8 g/dL Normal 6.0-8.0 [facility] Comment on above: Performed By: #### C LANA, 82412-9, , CBCA #### [facility] ([id number]) [address] [place] [address] Sodium [Moles/Vol] 136 mmol/L Normal 134-146 [facility] Comment on above: Performed By: #### C LANA, 89333-3, , CBCA #### [facility] ([id number]) [address] [place] [address] Urea nitrogen [Mass/Vol] 30 mg/dL High 5-23 [facility] Comment on above: Performed By: #### C LANA, 70732-3, , CBCA #### [facility] ([id number]) [address] [place] [address] CT ABDOMEN AND PELVIS WO CON Ton [...] Finn MD on 04/28/2023 10:39 PM Normal [facility] Glucose Glucometer (BldC) [M ass/Vol]on 04-29-2023 Glucose [Mass/Vol] 148 mg/dL High 65-99 [facility] Glucose [Mass/Vol] 116 mg/dL High 65-99 [facility] Glucose [Mass/Vol] 134 mg/dL High 65-99 [facility] MAGNESIUMon 04-29-2023 Magnesium [Mass/Vol] 2.3 mg/dL Normal 1.8-2.6 [facility] Comment on above: Performed By: #### C MP, 86354-0, 01788-3, CBCA #### [facility] ([id number]) [address] [facility] [place] [address] Vancomycin [Mass/Vol]on VANCOMYCIN 29.1 ug/mL Normal 5.0-40.0 [facility] Comment on above: Result Comment: Peak 30-40 ug/mL Trough 5-20 ug/ml Performed By: #### C LANA, 53349-7, , CBCA #### [facility] ([id number]) [address] [place] [address] CBC AND AUTO DIFFon 04-28-19 24 ABSOLUTE BASOPHIL 0.1 X10E9/L Normal 0.0-0.2 [facility] Comment on above: Performed By: #### C LANA, 41270-9, , CBCA #### [facility] ([id number]) [address] [place] [address] Basophils/100 WBC (Bld) 1.0 % Normal [facility] Comment on above: Performed By: #### C LANA, 55406-9, , CBCA #### [facility] ([id number]) [address] [address] Erythrocyte distribution width (RBC) [Ratio] 17.6 % High 11.5-15.0 [facility] Comment on above: Performed By: #### C LANA, 64640-9, , CBCA #### [facility] ([id number]) [address] [place] [address] Hematocrit (Bld) [Volume fraction] 42.6 % Normal 35-47 [facility] Comment on above: Performed By: #### C LANA, 40875-7, , CBCA #### [facility] ([id number]) [address] [place] [address] Hemoglobin (Bld) [Mass/Vol] 13.6 g/dL Normal 11.7-15.5 [facility] Comment on above: Performed By: #### C LANA, 60331-9, , CBCA #### [facility] ([id number]) [address] [facility] [place] [address] LYMPHOCYTE, ATYPICAL 1.9 % Normal [facility] Comment on above: Performed By: #### Javid SCHWARTZ, 73740-9, , CBCA #### [facility] ([id number]) [address] [facility] [place] [address] Lymphocytes (Bld) [#/Vol] 3.1 10*3/uL Normal 1.0-3.5 [facility] Comment on above: Performed By: #### C LANA, 05676-4, , CBCA #### [facility] ([id number]) [address] [place] [address] Lymphocytes/100 WBC (Bld) 29.5 % Normal [facility] Comment on above: Performed By: #### Javid SCHWARTZ, 98425-1, , CBCA #### [facility] ([id number]) [address] [place] [address] MCH (RBC) [Entitic mass] 27.7 pg Normal 27-34 [facility] Comment on above: Performed By: #### Javid SCHWARTZ, 53407-0, , CBCA #### [facility] ([id number]) [address] [facility] [place] [address] MCHC (RBC) [Mass/Vol] 32.0 g/dL Normal 32-36 [facility] Comment on above: Performed By: #### Javid SCHWARTZ, 87482-6, , CBCA #### [facility] ([id number]) [address] [place] [address] MCV (RBC) [Entitic vol] 87 fL Normal 80-100 [facility] Comment on above: Performed By: #### C LANA, 70082-8, , CBCA #### [facility] ([id number]) [address] [place] [address] Monocytes (Bld) [#/Vol] 1.2 10*3/uL High 0-0.9 [facility] Comment on above: Performed By: #### C MP, 69513-8, , CBCA #### [facility] ([id number]) [address] [place] [address] Monocytes/100 WBC (Bld) 12.4 % Normal [facility] Comment on above: Performed By: #### C MP, 34238-6, 11438-8, CBCA #### [facility] ([id number]) [address] [place] [address] Neutrophils (Bld) [#/Vol] 5.4 10*3/uL Normal 1.5-6.6 [facility] Comment on above: Performed By: #### C LANA, 79285-0, , CBCA #### [facility] ([id number]) [address] [place] [address] Platelet mean volume (Bld) [Entitic vol] 8.6 fL Normal 7-12 [facility] Comment on above: Performed By: #### C LANA, 58846-5, , CBCA #### [facility] ([id number]) [address] [place] [address] Platelets (Bld) [#/Vol] 398 10*3/uL Normal 150-450 [facility] Comment on above: Performed By: #### C LANA, 83698-6, , CBCA #### [facility] ([id number]) [address] [place] [address] POLYCHROMASIA 1+ Abnormal NONE [facility] Comment on above: Performed By: #### C LANA, 55970-8, , CBCA #### [facility] ([id number]) [address] [place] [address] RBC COUNT 4.92 X10E12/L Normal 3.80-5.20 [facility] Comment on above: Performed By: #### C LANA, 06692-0, , CBCA #### [facility] ([id number]) [address] [place] [address] SEG NEUTROPHIL 55.2 % Normal [facility] Comment on above: Performed By: #### C LANA, 56861-0, , CBCA #### [facility] ([id number]) [address] [place] [address] WBC (Bld) [#/Vol] 9.7 10*3/uL Normal 4.0-11.0 [facility] Comment on above: Performed By: #### C LANA, 11107-0, , CBCA #### [facility] ([id number]) [address] [place] [address] COMPREHENSIVE METABOLIC PANE Meek 04-28-2023 Albumin [Mass/Vol] 3.8 g/dL Normal 3.2-5.3 [facility] Comment on above: Performed By: #### C LANA, 26240-0, , CBCA #### [facility] ([id number]) [address] [place] [address] ALP [Catalytic activity/Vol] 80 U/L Normal 39-130 [facility] Comment on above: Performed By: #### C LANA, 37257-3, , CBCA #### [facility] ([id number]) [address] [place] [address] ALT [Catalytic activity/Vol] 49 U/L High 0-31 [facility] Comment on above: Performed By: #### C LANA, 26999-6, , CBCA #### [facility] ([id number]) [address] [place] [address] Anion gap [Moles/Vol] 11 mmol/L Normal 5-15 [facility] Comment on above: Performed By: #### C LANA, 35028-5, , CBCA #### [facility] ([id number]) [address] [place] [address] AST [Catalytic activity/Vol] 26 U/L Normal 0-41 [facility] Comment on above: Performed By: #### C LANA, 77432-4, , CBCA #### [facility] ([id number]) [address] [place] [address] Bilirubin [Mass/Vol] 0.5 mg/dL Normal 0.3-1.2 [facility] Comment on above: Performed By: #### C LANA, 34288-8, , CBCA #### [facility] ([id number]) [address] [place] [address] Calcium [Mass/Vol] 10.8 mg/dL High 8.5-10.5 [facility] Comment on above: Performed By: #### C LANA, 48373-0, , CBCA #### [facility] ([id number]) [address] [place] [address] Chloride [Moles/Vol] 109 mmol/L Normal 98-109 [facility] Comment on above: Performed By: #### C LANA, 99407-2, , CBCA #### [facility] ([id number]) [address] [place] [address] CO2 [Moles/Vol] 20 mmol/L Low 22-32 [facility] Comment on above: Performed By: #### C LANA, 53848-3, , CBCA #### [facility] ([id number]) [address] [place] [address] Creatinine [Mass/Vol] 1.00 mg/dL Normal 0.40-1.00 [facility] Comment on above: Result Comment: METH OD TRACEABLE TO IDMS STANDARD Performed By: #### C LANA, 17761-5, , CBCA #### [facility] ([id number]) [address] [place] [address] GFR/1.73 sq M.predicted among non-blacks MDRD (S/P/Bld) [Vol rate/Area] 64 mL/min/{1.73_m2} Normal >59 [facility] Comment on above: Result Comment: Reported eGFR is based on the CKD-EPI 2020 equation that does not use a race coefficient. Performed By: #### C LANA, 89830-8, , CBCA #### [facility] ([id number]) [address] [place] [address] Glucose [Mass/Vol] 144 mg/dL High 65-99 [facility] Comment on above: Performed By: #### C LANA, 55767-9, , CBCA #### [facility] ([id number]) [address] [place] [address] Potassium [Moles/Vol] 3.9 mmol/L Normal 3.5-5.0 [facility] Comment on above: Performed By: #### C LANA, 19076-5, , CBCA #### [facility] ([id number]) [address] [place] [address] Protein [Mass/Vol] 8.7 g/dL High 6.0-8.0 [facility] Comment on above: Performed By: #### C LANA, 64722-0, , CBCA #### [facility] ([id number]) [address] [place] [address] Sodium [Moles/Vol] 140 mmol/L Normal 134-146 [facility] Comment on above: Performed By: #### C LANA, 01335-5, , CBCA #### [facility] ([id number]) [address] [place] [address] Urea nitrogen [Mass/Vol] 24 mg/dL High 5-23 [facility] Comment on above: Performed By: #### C LANA, 13273-6, , CBCA #### [facility] ([id number]) [address] [place] [address] Glucose Glucometer (BldC) [M ass/Vol]on 04-28-2023 Glucose [Mass/Vol] 138 mg/dL High 65-99 [facility] Glucose [Mass/Vol] 175 mg/dL High 65-99 [facility] MAGNESIUMon 04-28-2023 Magnesium [Mass/Vol] 2.6 mg/dL Normal 1.8-2.6 [facility] Comment on above: Performed By: #### C LANA, 49843-8, , CBCA #### [facility] ([id number]) [address] [place] [address] POTASSIUMon 04-28-2023 Potassium [Moles/Vol] 3.9 mmol/L Normal 3.5-5.0 [facility] Comment on above: Performed By: #### C LANA, 30673-1, 45657-0, CBCA #### [facility] ([id number]) [address] [place] [address] XR CHEST 1 VWon 04-28-2023 XR CHEST [...] Anderson MD on 04/28/2023 9:57 AM Normal [facility] BLOOD CULTUREon 04-27-2023 Bacteria identified Aer cx Nom (Bld) CULTURE RESULTS NO GROWTH 5 DAYS Normal [facility] Bacteria identified Aer cx Nom (Bld) CULTURE RESULTS NO GROWTH 5 DAYS Normal [facility] CBC AND AUTO DIFFon 04-27-19 24 ABSOLUTE BASOPHIL 0.2 X10E9/L Normal 0.0-0.2 [facility] Comment on above: Performed By: #### C LANA, 48698-4, , CBCA #### [facility] ([id number]) [address] [place] [address] ABSOLUTE NEUTROPHIL 3.9 X10E9/L Normal 1.5-6.6 [facility] Comment on above: Performed By: #### C LANA, 87628-3, , CBCA #### [facility] ([id number]) [address] [address] Basophils/100 WBC (Bld) 2.9 % Normal [facility] Comment on above: Performed By: #### C LANA, 67851-5, 45637-9, CBCA #### [facility] ([id number]) [address] [address] Eosinophils (Bld) [#/Vol] 0.1 10*3/uL Normal 0.0-0.4 [facility] Comment on above: Performed By: #### C LANA, 61189-2, , CBCA #### [facility] ([id number]) [address] [address] Eosinophils/100 WBC (Bld) 1.7 % Normal [facility] Comment on above: Performed By: #### C , 02688-5, , CBCA #### [facility] ([id number]) [address] [facility] [place] [address] Erythrocyte distribution width (RBC) [Ratio] 17.7 % High 11.5-15.0 [facility] Comment on above: Performed By: #### C LANA, 08369-6, , CBCA #### [facility] ([id number]) [address] [address] Hematocrit (Bld) [Volume fraction] 38.8 % Normal 35-47 [facility] Comment on above: Performed By: #### C , 39568-2, , CBCA #### [facility] ([id number]) [address] [address] Hemoglobin (Bld) [Mass/Vol] 12.7 g/dL Normal 11.7-15.5 [facility] Comment on above: Performed By: #### C LANA, 84220-9, , CBCA #### [facility] ([id number]) [address] [place] [address] Lymphocytes (Bld) [#/Vol] 1.7 10*3/uL Normal 1.0-3.5 [facility] Comment on above: Performed By: #### C LANA, 20828-5, , CBCA #### [facility] ([id number]) [address] [place] [address] Lymphocytes/100 WBC (Bld) 26.3 % Normal [facility] Comment on above: Performed By: #### C LANA, 54878-1, , CBCA #### [facility] ([id number]) [address] [place] [address] MCH (RBC) [Entitic mass] 28.2 pg Normal 27-34 [facility] Comment on above: Performed By: #### C LANA, 54052-9, , CBCA #### [facility] ([id number]) [address] [place] [address] MCHC (RBC) [Mass/Vol] 32.7 g/dL Normal 32-36 [facility] Comment on above: Performed By: #### Javid SCHWARTZ, 20099-0, , CBCA #### [facility] ([id number]) [address] [place] [address] MCV (RBC) [Entitic vol] 86 fL Normal 80-100 [facility] Comment on above: Performed By: #### Javid SCHWARTZ, 55751-3, , CBCA #### [facility] ([id number]) [address] [place] [address] Monocytes (Bld) [#/Vol] 0.7 10*3/uL Normal 0-0.9 [facility] Comment on above: Performed By: #### Javid SCHWARTZ, 34190-1, , CBCA #### [facility] ([id number]) [address] [place] [address] Monocytes/100 WBC (Bld) 10.1 % Normal [facility] Comment on above: Performed By: #### [place], 75379-0, , CBCA #### [facility] ([id number]) [address] [place] [address] Neutrophils/100 WBC (Bld) 59.0 % Normal [facility] Comment on above: Performed By: #### C MP, 52785-2, 02442-2, CBCA #### [facility] ([id number]) [address] [place] [address] Platelet mean volume (Bld) [Entitic vol] 8.1 fL Normal 7-12 [facility] [facility] Comment on above: Performed By: #### C LANA, 42961-2, , CBCA #### [facility] ([id number]) [address] [facility] [place] [address] Platelets (Bld) [#/Vol] 364 10*3/uL Normal 150-450 [facility] Comment on above: Performed By: #### C LANA, 51451-8, , CBCA #### [facility] ([id number]) [address] [place] [address] RBC COUNT 4.49 X10E12/L Normal 3.80-5.20 [facility] Comment on above: Performed By: #### C LANA, 55218-4, , CBCA #### [facility] ([id number]) [address] [place] [address] WBC (Bld) [#/Vol] 6.6 10*3/uL Normal 4.0-11.0 [facility] Comment on above: Performed By: #### C MP, 72878-2, , CBCA #### [facility] ([id number]) [address] [place] [address] COMPREHENSIVE METABOLIC PANE Meek 04-27-2023 Albumin [Mass/Vol] 3.7 g/dL Normal 3.2-5.3 [facility] Comment on above: Performed By: #### C MP, 82318-3, , CBCA #### [facility] ([id number]) [address] [place] [address] ALP [Catalytic activity/Vol] 74 U/L Normal 39-130 [facility] Comment on above: Performed By: #### C , 80372-7, , CBCA #### [facility] ([id number]) [address] [place] [address] ALT [Catalytic activity/Vol] 47 U/L High 0-31 [facility] Comment on above: Performed By: #### C , 62813-8, , CBCA #### [facility] ([id number]) [address] [place] [address] Anion gap [Moles/Vol] 12 mmol/L Normal 5-15 [facility] Comment on above: Performed By: #### C , 26918-1, , CBCA #### [facility] ([id number]) [address] [place] [address] AST [Catalytic activity/Vol] 29 U/L Normal 0-41 [facility] Comment on above: Performed By: #### C , 22334-7, , CBCA #### [facility] ([id number]) [address] [place] [address] Bilirubin [Mass/Vol] 0.6 mg/dL Normal 0.3-1.2 [facility] Comment on above: Performed By: #### C , 67371-2, , CBCA #### [facility] ([id number]) [address] [place] [address] Calcium [Mass/Vol] 10.3 mg/dL Normal 8.5-10.5 [facility] Comment on above: Performed By: #### C , 87894-0, , CBCA #### [facility] ([id number]) [address] [place] [address] Chloride [Moles/Vol] 108 mmol/L Normal 98-109 [facility] Comment on above: Performed By: #### C MP, 61200-5, , CBCA #### [facility] ([id number]) [address] [place] [address] CO2 [Moles/Vol] 21 mmol/L Low 22-32 [facility] Comment on above: Performed By: #### C LANA, 29790-3, , CBCA #### [facility] ([id number]) [address] [place] [address] Creatinine [Mass/Vol] 1.03 mg/dL High 0.40-1.00 [facility] Comment on above: Result Comment: METH OD TRACEABLE TO IDMS STANDARD Performed By: #### C LANA, 52380-6, , CBCA #### [facility] ([id number]) [address] [place] [address] GFR/1.73 sq M.predicted among non-blacks MDRD (S/P/Bld) [Vol rate/Area] 62 mL/min/{1.73_m2} Normal >59 [facility] Comment on above: Result Comment: Reported eGFR is based on the CKD-EPI 2020 equation that does not use a race coefficient. Performed By: #### C MP, 69084-2, , CBCA #### [facility] ([id number]) [address] [place] [address] Glucose [Mass/Vol] 121 mg/dL High 65-99 [facility] Comment on above: Performed By: #### C MP, 57353-9, , CBCA #### [facility] ([id number]) [address] [place] [address] Potassium [Moles/Vol] 3.3 mmol/L Low 3.5-5.0 [facility] Comment on above: Performed By: #### C MP, 69720-7, , CBCA #### [facility] ([id number]) [address] [place] [address] Protein [Mass/Vol] 8.3 g/dL High 6.0-8.0 [facility] Comment on above: Performed By: #### C LANA, 86360-4, , CBCA #### [facility] ([id number]) [address] [place] [address] Sodium [Moles/Vol] 141 mmol/L Normal 134-146 [facility] Comment on above: Performed By: #### C LANA, 55892-7, , CBCA #### [facility] ([id number]) [address] [place] [address] Urea nitrogen [Mass/Vol] 17 mg/dL Normal 5-23 [facility] Comment on above: Performed By: #### C LANA, 73945-7, , CBCA #### [facility] ([id number]) [address] [place] [address] Glucose Glucometer (dC) [M ass/Vol]on 04-27-2023 Glucose [Mass/Vol] 127 mg/dL High 65-99 [facility] Glucose [Mass/Vol] 119 mg/dL High 65-99 [facility] Glucose [Mass/Vol] 132 mg/dL High 65-99 [facility] Glucose [Mass/Vol] 119 mg/dL High 65-99 [facility] MAGNESIUMon 04-27-2023 Magnesium [Mass/Vol] 2.5 mg/dL Normal 1.8-2.6 [facility] Comment on above: Performed By: #### C LANA, 60220-0, , CBCA #### [facility] ([id number]) [address] [place] [address] POTASSIUMon 04-27-2023 Potassium [Moles/Vol] 3.7 mmol/L Normal 3.5-5.0 [facility] Comment on above: Performed By: #### C LANA, 46437-8, , CBCA #### [facility] ([id number]) [address] [place] [address] CBC AND AUTO DIFFon 04-26-20 ABSOLUTE BASOPHIL 0.1 X10E9/L Normal 0.0-0.2 [facility] Comment on above: Performed By: #### C LANA, 66511-1, , CBCA #### [facility] ([id number]) [address] [place] [address] ABSOLUTE NEUTROPHIL 4.2 X10E9/L Normal 1.5-6.6 [facility] Comment on above: Performed By: #### C LANA, 73446-4, , CBCA #### [facility] ([id number]) [address] [address] Basophils/100 WBC (Bld) 1.1 % Normal [facility] Comment on above: Performed By: #### C LANA, 45453-0, , CBCA #### [facility] ([id number]) [address] [address] Eosinophils (Bld) [#/Vol] 0.0 10*3/uL Normal 0.0-0.4 [facility] Comment on above: Performed By: #### C LANA, 00384-3, , CBCA #### [facility] ([id number]) [address] [address] Eosinophils/100 WBC (Bld) 0.4 % Normal [facility] Comment on above: Performed By: #### C LANA, 99077-0, , CBCA #### [facility] ([id number]) [address] [place] [address] Erythrocyte distribution width (RBC) [Ratio] 17.3 % High 11.5-15.0 [facility] Comment on above: Performed By: #### C LANA, 45621-0, , CBCA #### [facility] ([id number]) [address] [place] [address] Hematocrit (Bld) [Volume fraction] 32.3 % Low 35-47 [facility] Comment on above: Performed By: #### C LANA, 00853-3, , CBCA #### [facility] ([id number]) [address] [facility] [place] [address] Hemoglobin (Bld) [Mass/Vol] 10.2 g/dL Low 11.7-15.5 [facility] Comment on above: Performed By: #### C LANA, 33746-1, , CBCA #### [facility] ([id number]) [address] [facility] [place] [address] Lymphocytes (Bld) [#/Vol] 1.7 10*3/uL Normal 1.0-3.5 [facility] Comment on above: Performed By: #### C LANA, 67753-7, , CBCA #### [facility] ([id number]) [address] [facility] [place] [address] Lymphocytes/100 WBC (Bld) 25.7 % Normal [facility] Comment on above: Performed By: #### C LANA, 30479-5, , CBCA #### [facility] ([id number]) [address] [facility] [place] [address] MCH (RBC) [Entitic mass] 27.3 pg Normal 27-34 [facility] Comment on above: Performed By: #### C LANA, 88672-9, , CBCA #### [facility] ([id number]) [address] [place] [address] MCHC (RBC) [Mass/Vol] 31.6 g/dL Low 32-36 [facility] Comment on above: Performed By: #### C LANA, 35176-6, , CBCA #### [facility] ([id number]) [address] [place] [address] MCV (RBC) [Entitic vol] 86 fL Normal 80-100 [facility] Comment on above: Performed By: #### C LANA, 47246-2, , CBCA #### [facility] ([id number]) [address] [facility] [place] [address] Monocytes (Bld) [#/Vol] 0.6 10*3/uL Normal 0-0.9 [facility] Comment on above: Performed By: #### C MP, 49550-3, , CBCA #### [facility] ([id number]) [address] [place] [address] Monocytes/100 WBC (Bld) 9.2 % Normal [facility] Comment on above: Performed By: #### C MP, 52515-1, , CBCA #### [facility] ([id number]) [address] [place] [address] Neutrophils/100 WBC (Bld) 63.6 % Normal [facility] Comment on above: Performed By: #### C , 98047-5, , CBCA #### [facility] ([id number]) [address] [facility] [place] [address] Platelet mean volume (Bld) [Entitic vol] 8.4 fL Normal 7-12 [facility] Comment on above: Performed By: #### C LANA, 29489-4, , CBCA #### [facility] ([id number]) [address] [facility] [place] [address] Platelets (Bld) [#/Vol] 334 10*3/uL Normal 150-450 [facility] Comment on above: Performed By: #### C MP, 03440-6, , CBCA #### [facility] ([id number]) [address] [place] [address] RBC COUNT 3.74 X10E12/L Low 3.80-5.20 [facility] Comment on above: Performed By: #### C MP, 63249-0, , CBCA #### [facility] ([id number]) [address] [place] [address] WBC (Bld) [#/Vol] 6.7 10*3/uL Normal 4.0-11.0 [facility] Comment on above: Performed By: #### C LANA, 02088-5, , CBCA #### [facility] ([id number]) [address] [place] [address] COMPREHENSIVE METABOLIC PANE [facility] 04-26-2023 Albumin [Mass/Vol] 2.9 g/dL Low 3.2-5.3 [facility] Comment on above: Performed By: #### C LANA, 12732-9, , CBCA #### [facility] ([id number]) [address] [place] [address] ALP [Catalytic activity/Vol] 55 U/L Normal 39-130 [facility] Comment on above: Performed By: #### C LANA, 04057-5, , CBCA #### [facility] ([id number]) [address] [place] [address] ALT [Catalytic activity/Vol] 33 U/L High 0-31 [facility] Comment on above: Performed By: #### C LANA, 02921-9, , CBCA #### [facility] ([id number]) [address] [place] [address] Anion gap [Moles/Vol] 5 mmol/L Normal 5-15 [facility] Comment on above: Performed By: #### C LANA, 45784-0, , CBCA #### [facility] ([id number]) [address] [place] [address] AST [Catalytic activity/Vol] 21 U/L Normal 0-41 [facility] Comment on above: Performed By: #### C LANA, 04204-0, , CBCA #### [facility] ([id number]) [address] [place] [address] Bilirubin [Mass/Vol] 0.6 mg/dL Normal 0.3-1.2 [facility] Comment on above: Performed By: #### C LANA, 72502-8, , CBCA #### [facility] ([id number]) [address] [place] [address] Calcium [Mass/Vol] 9.3 mg/dL Normal 8.5-10.5 [facility] Comment on above: Performed By: #### C LANA, 10806-1, , CBCA #### [facility] ([id number]) [address] [place] [address] Chloride [Moles/Vol] 117 mmol/L High 98-109 [facility] Comment on above: Performed By: #### C LANA, 87208-6, , CBCA #### [facility] ([id number]) [address] [facility] [place] [address] CO2 [Moles/Vol] 20 mmol/L Low 22-32 [facility] Comment on above: Performed By: #### C LANA, 08404-0, , CBCA #### [facility] ([id number]) [address] [facility] [place] [address] Creatinine [Mass/Vol] 0.59 mg/dL Normal 0.40-1.00 [facility] Comment on above: Result Comment: METH OD TRACEABLE TO IDMS STANDARD Performed By: #### C LANA, 56808-9, , CBCA #### [facility] ([id number]) [address] [place] [address] eGFR (CKD-EPI) NON-RACE DEPENDENT >90 Normal >59 [facility] Comment on above: Result Comment: Reported eGFR is based on the CKD-EPI 2020 equation that does not use a race coefficient. Performed By: #### C LANA, 33143-9, , CBCA #### [facility] ([id number]) [address] [place] [address] Glucose [Mass/Vol] 95 mg/dL Normal 65-99 [facility] Comment on above: Performed By: #### C LANA, 85710-7, , CBCA #### [facility] ([id number]) [address] [place] [address] Potassium [Moles/Vol] 3.4 mmol/L Low 3.5-5.0 [facility] Comment on above: Performed By: #### C LANA, 69640-0, , CBCA #### [facility] ([id number]) [address] [place] [address] Protein [Mass/Vol] 6.6 g/dL Normal 6.0-8.0 [facility] Comment on above: Performed By: #### C LANA, 21724-6, , CBCA #### [facility] ([id number]) [address] [place] [address] Sodium [Moles/Vol] 142 mmol/L Normal 134-146 [facility] Comment on above: Performed By: #### C LANA, 03614-4, , CBCA #### [facility] ([id number]) [address] [place] [address] Urea nitrogen [Mass/Vol] 12 mg/dL Normal 5-23 [facility] Comment on above: Performed By: #### C LANA, 94832-7, , CBCA #### [facility] ([id number]) [address] [place] [address] Glucose Glucometer (BldC) [M ass/Vol]on 04-26-2023 Glucose [Mass/Vol] 111 mg/dL High 65-99 [facility] Glucose [Mass/Vol] 118 mg/dL High 65-99 [facility] Glucose [Mass/Vol] 225 mg/dL High 65-99 [facility] Glucose [Mass/Vol] 105 mg/dL High 65-99 [facility] MAGNESIUMon 04-26-2023 Magnesium [Mass/Vol] 2.2 mg/dL Normal 1.8-2.6 [facility] Comment on above: Performed By: #### C LANA, 24188-5, , CBCA #### [facility] ([id number]) [address] [place] [address] POTASSIUMon 04-26-2023 Potassium [Moles/Vol] 4.0 mmol/L Normal 3.5-5.0 [facility] Comment on above: Performed By: #### C LANA, 00308-9, , CBCA #### [facility] ([id number]) [address] [place] [address] BASIC METABOLIC PANLon 04-25 Anion gap [Moles/Vol] 6 mmol/L Normal 5-15 [facility] Comment on above: Performed By: #### C LANA, 73144-0, , CBCA #### [facility] ([id number]) [address] [place] [address] Calcium [Mass/Vol] 9.6 mg/dL Normal 8.5-10.5 [facility] Comment on above: Performed By: #### C LANA, 97847-3, , CBCA #### [facility] ([id number]) [address] [place] [address] Chloride [Moles/Vol] 115 mmol/L High 98-109 [facility] Comment on above: Performed By: #### C LANA, 75156-5, , CBCA #### [facility] ([id number]) [address] [place] [address] CO2 [Moles/Vol] 18 mmol/L Low 22-32 [facility] Comment on above: Performed By: #### C LANA, 65368-5, , CBCA #### [facility] ([id number]) [address] [place] [address] Creatinine [Mass/Vol] 0.56 mg/dL Normal 0.40-1.00 [facility] Comment on above: Result Comment: METH OD TRACEABLE TO IDMS STANDARD Performed By: #### C LANA, 14719-4, , CBCA #### [facility] ([id number]) [address] [place] [address] eGFR (CKD-EPI) NON-RACE DEPENDENT >90 Normal >59 [facility] Comment on above: Result Comment: Reported eGFR is based on the CKD-EPI 2020 equation that does not use a race coefficient. Performed By: #### C LANA, 95960-2, 02321-9, CBCA #### [facility] ([id number]) [address] [place] [address] Glucose [Mass/Vol] 86 mg/dL Normal 65-99 [facility] Comment on above: Performed By: #### C LANA, 83572-1, 24868-6, CBCA #### [facility] ([id number]) [address] [place] [address] Potassium [Moles/Vol] 3.5 mmol/L Normal 3.5-5.0 [facility] Comment on above: Performed By: #### C LANA, 68446-0, , CBCA #### [facility] ([id number]) [address] [place] [address] Sodium [Moles/Vol] 139 mmol/L Normal 134-146 [facility] Comment on above: Performed By: #### C LANA, 36560-1, , CBCA #### [facility] ([id number]) [address] [place] [address] Urea nitrogen [Mass/Vol] 14 mg/dL Normal 5-23 [facility] Comment on above: Performed By: #### C LANA, 36839-5, 13469-0, CBCA #### [facility] ([id number]) [address] [place] [address] COMPLETE BLOOD COUNTon 04-25 Erythrocyte distribution width (RBC) [Ratio] 18.1 % High 11.5-15.0 [facility] Comment on above: Performed By: #### C LANA, 85638-8, 95841-1, CBCA #### [facility] ([id number]) [address] [place] [address] Hematocrit (Bld) [Volume fraction] 32.2 % Low 35-47 [facility] Comment on above: Performed By: #### C LANA, 93012-3, , CBCA #### [facility] ([id number]) [address] [place] [address] Hemoglobin (Bld) [Mass/Vol] 10.1 g/dL Low 11.7-15.5 [facility] Comment on above: Performed By: #### C LANA, 65845-8, , CBCA #### [facility] ([id number]) [address] [place] [address] MCH (RBC) [Entitic mass] 27.4 pg Normal 27-34 [facility] Comment on above: Performed By: #### C LANA, 43704-2, , CBCA #### [facility] ([id number]) [address] [place] [address] MCHC (RBC) [Mass/Vol] 31.5 g/dL Low 32-36 [facility] Comment on above: Performed By: #### Javid SCHWARTZ, 32090-5, , CBCA #### [facility] ([id number]) [address] [place] [address] MCV (RBC) [Entitic vol] 87 fL Normal 80-100 [facility] Comment on above: Performed By: #### Javid SCHWARTZ, 66086-4, , CBCA #### [facility] ([id number]) [address] [place] [address] Platelet mean volume (Bld) [Entitic vol] 8.7 fL Normal 7-12 [facility] Comment on above: Performed By: #### C LANA, 18381-6, , CBCA #### [facility] ([id number]) [address] [place] [address] Platelets (Bld) [#/Vol] 343 10*3/uL Normal 150-450 [facility] Comment on above: Performed By: #### C LANA, 30269-7, , CBCA #### [facility] ([id number]) [address] [place] [address] RBC COUNT 3.70 X10E12/L Low 3.80-5.20 [facility] Comment on above: Performed By: #### C LANA, 18091-0, , CBCA #### [facility] ([id number]) [address] [place] [address] WBC (Bld) [#/Vol] 7.6 10*3/uL Normal 4.0-11.0 [facility] Comment on above: Performed By: #### C LANA, 67222-1, , CBCA #### [facility] ([id number]) [address] [place] [address] Glucose Glucometer (BldC) [M ass/Vol]on 04-25-2023 Glucose [Mass/Vol] 160 mg/dL High 65-99 [facility] Glucose [Mass/Vol] 126 mg/dL High 65-99 [facility] Glucose [Mass/Vol] 128 mg/dL High 65-99 [facility] Glucose [Mass/Vol] 158 mg/dL High 65-99 [facility] Glucose [Mass/Vol] 82 mg/dL Normal 65-99 [facility] Glucose [Mass/Vol] 93 mg/dL Normal 65-99 [facility] MAGNESIUMon 04-25-2023 Magnesium [Mass/Vol] 2.1 mg/dL Normal 1.8-2.6 [facility] Comment on above: Performed By: #### C LANA, 04513-8, , CBCA #### [facility] ([id number]) [address] [place] [address] PHOSPHORUSon 04-25-2023 Phosphate [Mass/Vol] 3.2 mg/dL Normal 2.4-4.9 [facility] Comment on above: Performed By: #### C LANA, 73665-6, , CBCA #### [facility] ([id number]) [address] [place] [address] POTASSIUMon 04-25-2023 Potassium [Moles/Vol] 3.7 mmol/L Normal 3.5-5.0 [facility] Comment on above: Performed By: #### C LANA, 17944-2, , CBCA #### [facility] ([id number]) [address] [place] [address] Vancomycin trough [Mass/Vol] on 04-25-2023 VANCOMYCIN TROUGH 22.7 ug/mL High 5.0-20.0 [facility] Comment on above: Performed By: #### C LANA, 66738-6, , CBCA #### [facility] ([id number]) [address] [facility] [place] [address] lamoTRIgine [Mass/Vol]on LAMOTRIGINE <0.5 Low 1.0-13.0 [facility] Comment on above: Result Comment: NOTE This test was developed and its performance characteristics determined by [facility]'s [facility] [place] ([facility]). It has not been cleared or approved by the FDA. -[facility] is regulated under CLIA as qualified to perform high-complexity testing. This test is used for clinical purposes. It should not be regarded as investigational or for research. Test Performed By: [facility] [address] [place] [address] Under Cutting Machine Operator: Davian Holloway III, M.D. CLIA #[id number] Performed By: #### C LANA, 56285-3, , CBCA #### [facility] ([id number]) [address] [place] [address] BASIC METABOLIC PANLon 04-24 Anion gap [Moles/Vol] 9 mmol/L Normal 5-15 [facility] Comment on above: Performed By: #### C LANA, 15083-0, , CBCA #### [facility] ([id number]) [address] [place] [address] Calcium [Mass/Vol] 9.9 mg/dL Normal 8.5-10.5 [facility] Comment on above: Performed By: #### C LANA, 22690-1, 43470-3, CBCA #### [facility] ([id number]) [address] [place] [address] Chloride [Moles/Vol] 112 mmol/L High 98-109 [facility] Comment on above: Performed By: #### C LANA, 82790-3, , CBCA #### [facility] ([id number]) [address] [place] [address] CO2 [Moles/Vol] 17 mmol/L Low 22-32 [facility] Comment on above: Performed By: #### C LANA, 22902-6, , CBCA #### [facility] ([id number]) [address] [place] [address] Creatinine [Mass/Vol] 0.68 mg/dL Normal 0.40-1.00 [facility] Comment on above: Result Comment: METH OD TRACEABLE TO IDMS STANDARD Performed By: #### C LANA, 74406-4, , CBCA #### [facility] ([id number]) [address] [place] [address] eGFR (CKD-EPI) NON-RACE DEPENDENT >90 Normal >59 [facility] Comment on above: Result Comment: Reported eGFR is based on the CKD-EPI 2021 equation that does not use a race coefficient. Performed By: #### C LANA, 31596-7, , CBCA #### [facility] ([id number]) [address] [place] [address] Glucose [Mass/Vol] 134 mg/dL High 65-99 [facility] Comment on above: Performed By: #### C LANA, 35861-1, , CBCA #### [facility] ([id number]) [address] [place] [address] Potassium [Moles/Vol] 4.2 mmol/L Normal 3.5-5.0 [facility] Comment on above: Performed By: #### C LANA, 68949-5, , CBCA #### [facility] ([id number]) [address] [place] [address] Sodium [Moles/Vol] 138 mmol/L Normal 134-146 [facility] Comment on above: Performed By: #### C LANA, 49682-9, , CBCA #### [facility] ([id number]) [address] [place] [address] Urea nitrogen [Mass/Vol] 15 mg/dL Normal 5-23 [facility] Comment on above: Performed By: #### C LANA, 37032-7, , CBCA #### [facility] ([id number]) [address] [place] [address] CBC AND AUTO DIFFon 04-24-20 23 ABSOLUTE BASOPHIL 0.1 X10E9/L Normal 0.0-0.2 [facility] Comment on above: Performed By: #### C LANA, 58630-8, , CBCA #### [facility] ([id number]) [address] [place] [address] ABSOLUTE NEUTROPHIL 5.1 X10E9/L Normal 1.5-6.6 [facility] Comment on above: Performed By: #### C LANA, 97155-5, , CBCA #### [facility] ([id number]) [address] [place] [address] Basophils/100 WBC (Bld) 1.0 % Normal [facility] Comment on above: Performed By: #### C LANA, 90411-6, , CBCA #### [facility] ([id number]) [address] [place] [address] Eosinophils (Bld) [#/Vol] 0.0 10*3/uL Normal 0.0-0.4 [facility] Comment on above: Performed By: #### C LANA, 25187-3, , CBCA #### [facility] ([id number]) [address] [facility] [place] [address] Eosinophils/100 WBC (Bld) 0.5 % Normal [facility] Comment on above: Performed By: #### C LANA, 29249-0, , CBCA #### [facility] ([id number]) [address] [address] Erythrocyte distribution width (RBC) [Ratio] 17.4 % High 11.5-15.0 [facility] Comment on above: Performed By: #### C LANA, 39468-1, , CBCA #### [facility] ([id number]) [address] [facility] [place] [address] Hematocrit (Bld) [Volume fraction] 31.9 % Low 35-47 [facility] Comment on above: Performed By: #### C LANA, 74962-3, , CBCA #### [facility] ([id number]) [address] [facility] [place] [address] Hemoglobin (Bld) [Mass/Vol] 9.8 g/dL Low 11.7-15.5 [facility] Comment on above: Performed By: #### C LANA, 88641-4, , CBCA #### [facility] ([id number]) [address] [address] Lymphocytes (Bld) [#/Vol] 2.5 10*3/uL Normal 1.0-3.5 [facility] Comment on above: Performed By: #### C LANA, 26842-9, , CBCA #### [facility] ([id number]) [address] [address] Lymphocytes/100 WBC (Bld) 28.0 % Normal [facility] Comment on above: Performed By: #### C LANA, 61257-3, , CBCA #### [facility] ([id number]) [address] [place] [address] MCH (RBC) [Entitic mass] 27.0 pg Normal 27-34 [facility] Comment on above: Performed By: #### C LANA, 51604-8, , CBCA #### [facility] ([id number]) [address] [place] [address] MCHC (RBC) [Mass/Vol] 30.8 g/dL Low 32-36 [facility] Comment on above: Performed By: #### Javid SCHWARTZ, 34556-3, , CBCA #### [facility] ([id number]) [address] [place] [address] MCV (RBC) [Entitic vol] 88 fL Normal 80-100 [facility] Comment on above: Performed By: #### Javid SCHWARTZ, 81147-9, , CBCA #### [facility] ([id number]) [address] [place] [address] Monocytes (Bld) [#/Vol] 1.1 10*3/uL High 0-0.9 [facility] Comment on above: Performed By: #### Javid SCHWARTZ, 93582-9, , CBCA #### [facility] ([id number]) [address] [place] [address] Monocytes/100 WBC (Bld) 12.1 % Normal [facility] Comment on above: Performed By: #### Javid SCHWARTZ, 63172-1, , CBCA #### [facility] ([id number]) [address] [place] [address] Neutrophils/100 WBC (Bld) 58.4 % Normal [facility] Comment on above: Performed By: #### Javid SCHWARTZ, 01684-1, , CBCA #### [facility] ([id number]) [address] [place] [address] Platelet mean volume (Bld) [Entitic vol] 7.8 fL Normal 7-12 [facility] Comment on above: Performed By: #### C LANA, 57596-8, , CBCA #### [facility] ([id number]) [address] [place] [address] Platelets (Bld) [#/Vol] 322 10*3/uL Normal 150-450 [facility] Comment on above: Performed By: #### C LANA, 49275-5, , CBCA #### [facility] ([id number]) [address] [place] [address] RBC COUNT 3.64 X10E12/L Low 3.80-5.20 [facility] Comment on above: Performed By: #### C LANA, 50350-6, , CBCA #### [facility] ([id number]) [address] [place] [address] WBC (Bld) [#/Vol] 8.8 10*3/uL Normal 4.0-11.0 [facility] Comment on above: Performed By: #### C LANA, 19925-1, , CBCA #### [facility] ([id number]) [address] [place] [address] COMPREHENSIVE METABOLIC PANE [facility] 04-24-2023 Albumin [Mass/Vol] 2.9 g/dL Low 3.2-5.3 [facility] Comment on above: Performed By: #### C LANA, 88340-2, , CBCA #### [facility] ([id number]) [address] [place] [address] ALP [Catalytic activity/Vol] 52 U/L Normal 39-130 [facility] Comment on above: Performed By: #### C LANA, 38263-8, , CBCA #### [facility] ([id number]) [address] [place] [address] ALT [Catalytic activity/Vol] 21 U/L Normal 0-31 [facility] Comment on above: Performed By: #### C LANA, 50011-3, , CBCA #### [facility] ([id number]) [address] [place] [address] Anion gap [Moles/Vol] 8 mmol/L Normal 5-15 [facility] Comment on above: Performed By: #### C , 39870-7, , CBCA #### [facility] ([id number]) [address] [place] [address] AST [Catalytic activity/Vol] 22 U/L Normal 0-41 [facility] Comment on above: Performed By: #### C LANA, 13224-2, , CBCA #### [facility] ([id number]) [address] [place] [address] Bilirubin [Mass/Vol] 0.8 mg/dL Normal 0.3-1.2 [facility] Comment on above: Performed By: #### C , 66698-9, , CBCA #### [facility] ([id number]) [address] [place] [address] Calcium [Mass/Vol] 9.4 mg/dL Normal 8.5-10.5 [facility] Comment on above: Performed By: #### C , 28281-5, , CBCA #### [facility] ([id number]) [address] [place] [address] Chloride [Moles/Vol] 117 mmol/L High 98-109 [facility] Comment on above: Performed By: #### C , 40502-7, , CBCA #### [facility] ([id number]) [address] [place] [address] CO2 [Moles/Vol] 18 mmol/L Low 22-32 [facility] Comment on above: Performed By: #### C LANA, 23410-7, , CBCA #### [facility] ([id number]) [address] [place] [address] Creatinine [Mass/Vol] 0.59 mg/dL Normal 0.40-1.00 [facility] Comment on above: Result Comment: METH OD TRACEABLE TO IDMS STANDARD Performed By: #### C LANA, 23802-0, , CBCA #### [facility] ([id number]) [address] [place] [address] Glucose [Mass/Vol] 90 mg/dL Normal 65-99 [facility] Comment on above: Performed By: #### C LANA, 69870-3, , CBCA #### [facility] ([id number]) [address] [place] [address] Potassium [Moles/Vol] 3.6 mmol/L Normal 3.5-5.0 [facility] Comment on above: Performed By: #### C LANA, 27802-3, , CBCA #### [facility] ([id number]) [address] [place] [address] Protein [Mass/Vol] 6.9 g/dL Normal 6.0-8.0 [facility] Comment on above: Performed By: #### C LANA, 60352-6, , CBCA #### [facility] ([id number]) [address] [place] [address] Sodium [Moles/Vol] 143 mmol/L Normal 134-146 [facility] Comment on above: Performed By: #### C LANA, 91855-7, , CBCA #### [facility] ([id number]) [address] [place] [address] Calcium.ionized (Bld) [Moles /Vol]on 04-24-2023 [facility] 5.5 mg/dL High 4.5-5.3 [facility] Comment on above: Performed By: #### C LANA, 12381-8, , CBCA #### [facility] ([id number]) [address] [place] [address] Glucose Glucometer (BldC) [M ass/Vol]on 04-24-2023 Glucose [Mass/Vol] 87 mg/dL Normal 65-[address] [facility] Glucose [Mass/Vol] 82 mg/dL Normal 65-[address] [facility] Glucose [Mass/Vol] 90 mg/dL Normal 65-99 [facility] MAGNESIUMon 04-24-2023 Magnesium [Mass/Vol] 2.0 mg/dL Normal 1.8-2.6 [facility] Comment on above: Performed By: #### C LANA, 53360-5, , CBCA #### [facility] ([id number]) [address] [place] [address] PHOSPHORUSon 04-24-2023 Phosphate [Mass/Vol] 3.4 mg/dL Normal 2.4-4.9 [facility] Comment on above: Performed By: #### C LANA, 08298-2, , CBCA #### [facility] ([id number]) [address] [place] [address] POTASSIUMon 04-24-2023 Potassium [Moles/Vol] 3.5 mmol/L Normal 3.5-5.0 [facility] Comment on above: Performed By: #### C LANA, 61085-9, , CBCA #### [facility] ([id number]) [address] [place] [address] Potassium [Moles/Vol] 3.7 mmol/L Normal 3.5-5.0 [facility] Comment on above: Performed By: #### C LANA, 28357-7, , CBCA #### [facility] ([id number]) [address] [place] [address] ARTERIAL BLOOD GASon 023 RAVINDRA'S TEST Pass Normal [facility] Comment on above: Performed By: #### A BG ####[facility] ([id number])[address] [facility] [place] [address] BASE,DEFICIT 4.0 MMOL/L High 0.0-2.0 [facility] Comment on above: Performed By: #### A BG ####[facility] ([id number])[address] [place] [address] Body temperature 98.6 [degF] Normal 37.0 [facility] Comment on above: Performed By: #### A BG ####[facility] ([id number])[address] [place] [address] HCO3 (Bld) [Moles/Vol] 21.0 mmol/L Low 22-26 [facility] Comment on above: Performed By: #### A BG ####[facility] ([id number])[address] [place] [address] INSP. O2 CONC. 40 % Normal [facility] Comment on above: Performed By: #### A BG ####[facility] ([id number])[facility] [place] [address] Oxygen (Bld) [Partial pressure] 76 mm[Hg] Low 80-100 [facility] Comment on above: Performed By: #### A BG ####[facility] ([id number])[address] [place] [address] Oxygen saturation in Blood 95.0 % Normal >90 [facility] Comment on above: Performed By: #### A BG ####[facility] ([id number])[facility] [place] [address] OXYGEN SOURCE Vent Normal [facility] Comment on above: Performed By: #### A BG ####[facility] ([id number])[address] [place] [address] PCO2 37.0 MMHG Normal 35-45 [facility] Comment on above: Performed By: #### A BG ####[facility] ([id number])[address] [place] [address] pH (Bld) 7.362 [pH] Normal 7.350-7.45 0 [facility] Comment on above: Performed By: #### A BG ####[facility] ([id number])[address] [place] [address] SAMPLE SITE RBrach Normal [facility] Comment on above: Performed By: #### A BG ####[facility] ([id number])[address] [place] [address] SAMPLE TYPE ARTERIAL Normal [facility] Comment on above: Performed By: #### A BG ####[facility] ([id number])[address] [place] [address] BLOOD CULTUREon 04-23-2023 Bacteria identified Aer cx Nom (Bld) CULTURE RESULTS NO GROWTH 5 DAYS Normal [facility] Bacteria identified Aer cx Nom (Bld) CULTURE RESULTS NO GROWTH 5 DAYS Normal [facility] CBC AND AUTO DIFFon 04-23-20 ABSOLUTE BASOPHIL 0.0 X10E9/L Normal 0.0-0.2 [facility] Comment on above: Performed By: #### 4 8066-5, , 1987-08, 2275-07, CMP, CBCA ####[facility] ([id number])[address] [place] [address] ABSOLUTE NEUTROPHIL 4.8 X10E9/L Normal 1.5-6.6 [facility] Comment on above: Performed By: #### 4 8066-5, , 1987-08, 2275-07, CMP, CBCA ####[facility] ([id number])[address] [place] [address] Basophils/100 WBC (Bld) 0.5 % Normal [facility] Comment on above: Performed By: #### 4 8066-5, 0, 1987-08, 2275-07, CMP, CBCA ####[facility] ([id number])[address] [place] [address] Eosinophils (Bld) [#/Vol] 0.1 10*3/uL Normal 0.0-0.4 [facility] Comment on above: Performed By: #### 4 8066-5, , 1987-08, 2275-07, CMP, CBCA ####[facility] ([id number])[address] [place] [address] Eosinophils/100 WBC (Bld) 0.8 % Normal [facility] Comment on above: Performed By: #### 4 8066-5, , 1987-08, 2275-07, CMP, CBCA ####[facility] ([id number])[address] [place] [address] Erythrocyte distribution width (RBC) [Ratio] 19.7 % High 11.5-15.0 [facility] Comment on above: Performed By: #### 4 8066-5, , 1987-08, 2275-07, CMP, CBCA ####[facility] ([id number])[address] [place] [address] Hematocrit (Bld) [Volume fraction] 32.6 % Low 35-47 [facility] Comment on above: Performed By: #### 4 8066-5, , 1987-08, 2275-07, CMP, CBCA ####[facility] ([id number])[address] [place] [address] Hemoglobin (Bld) [Mass/Vol] 10.4 g/dL Low 11.7-15.5 [facility] Comment on above: Performed By: #### 4 8066-5, , 1987-08, 2275-07, CMP, CBCA ####[facility] ([id number])[address] [place] [address] Lymphocytes (Bld) [#/Vol] 1.5 10*3/uL Normal 1.0-3.5 [facility] Comment on above: Performed By: #### 4 8066-5, , 1987-08, 2275-07, CMP, CBCA ####[facility] ([id number])[address] [place] [address] Lymphocytes/100 WBC (Bld) 20.9 % Normal [facility] Comment on above: Performed By: #### 4 8066-5, , 1987-08, 2275-07, CMP, CBCA ####[facility] ([id number])[address] [place] [address] MCH (RBC) [Entitic mass] 27.2 pg Normal 27-34 [facility] Comment on above: Performed By: #### 4 8066-5, , 1987-08, 2275-07, CMP, CBCA ####[facility] ([id number])[address] [place] [address] MCHC (RBC) [Mass/Vol] 31.7 g/dL Low 32-36 [facility] Comment on above: Performed By: #### 4 8066-5, , 1987-08, 2275-07, CMP, CBCA ####[facility] ([id number])[address] [place] [address] MCV (RBC) [Entitic vol] 86 fL Normal 80-100 [facility] Comment on above: Performed By: #### 4 8066-5, , 1987-08, 2275-07, CMP, CBCA ####[facility] ([id number])[address] [place] [address] Monocytes (Bld) [#/Vol] 0.7 10*3/uL Normal 0-0.9 [facility] Comment on above: Performed By: #### 4 8066-5, , 1987-08, 2275-07, CMP, CBCA ####[facility] ([id number])[address] [place] [address] Monocytes/100 WBC (Bld) 10.2 % Normal [facility] Comment on above: Performed By: #### 4 8066-5, , 1987-08, 2275-07, CMP, CBCA ####[facility] ([id number])[address] [place] [address] Neutrophils/100 WBC (Bld) 67.6 % Normal [facility] Comment on above: Performed By: #### 4 8066-5, 0, 1987-08, 2275-07, CMP, CBCA ####[facility] ([id number])[address] [place] [address] Platelet mean volume (Bld) [Entitic vol] 8.1 fL Normal 7-12 [facility] Comment on above: Performed By: #### 4 8066-5, , 1987-08, 2275-07, CMP, CBCA ####[facility] ([id number])[address] [place] [address] Platelets (Bld) [#/Vol] 362 10*3/uL Normal 150-450 [facility] Comment on above: Performed By: #### 4 8066-5, , 1987-08, 2275-07, CMP, CBCA ####[facility] ([id number])[address] [place] [address] RBC COUNT 3.81 X10E12/L Normal 3.80-5.20 [facility] Comment on above: Performed By: #### 4 8066-5, , 1987-08, 2275-07, CMP, CBCA ####[facility] ([id number])[address] [place] [address] RBC morphology finding Nom (Bld) NORMAL Normal [facility] Comment on above: Performed By: #### 4 8066-5, , 1987-08, 2275-07, CMP, CBCA ####[facility] ([id number])[address] [place] [address] WBC (Bld) [#/Vol] 7.1 10*3/uL Normal 4.0-11.0 [facility] Comment on above: Performed By: #### 4 8066-5, 0, 1987-08, 2275-07, CMP, CBCA ####[facility] ([id number])[address] [place] [address] COMPREHENSIVE METABOLIC PANE Meek 04-23-2023 Albumin [Mass/Vol] 3.0 g/dL Low 3.2-5.3 [facility] Comment on above: Performed By: #### 4 8066-5, 0, 1987-08, 2275-07, CMP, CBCA ####[facility] ([id number])[address] [place] [address] ALP [Catalytic activity/Vol] 62 U/L Normal 39-130 [facility] Comment on above: Performed By: #### 4 8066-5, 0, 1987-08, 2275-07, CMP, CBCA ####[facility] ([id number])[address] [place] [address] ALT [Catalytic activity/Vol] 18 U/L Normal 0-31 [facility] Comment on above: Performed By: #### 4 8066-5, , 1987-08, 2275-07, CMP, CBCA ####[facility] ([id number])[address] [place] [address] Anion gap [Moles/Vol] 5 mmol/L Normal 5-15 [facility] Comment on above: Performed By: #### 4 8066-5, , 1987-08, 2275-07, CMP, CBCA ####[facility] ([id number])[address] [place] [address] AST [Catalytic activity/Vol] 18 U/L Normal 0-41 [facility] Comment on above: Performed By: #### 4 8066-5, 0, 1987-08, 2275-07, CMP, CBCA ####[facility] ([id number])[address] [place] [address] Bilirubin [Mass/Vol] 0.6 mg/dL Normal 0.3-1.2 [facility] Comment on above: Performed By: #### 4 8066-5, 0, 1987-08, 2275-07, CMP, CBCA ####[facility] ([id number])[address] [place] [address] Calcium [Mass/Vol] 9.8 mg/dL Normal 8.5-10.5 [facility] Comment on above: Performed By: #### 4 8066-5, , 1987-08, 2275-07, CMP, CBCA ####[facility] ([id number])[address] [place] [address] Chloride [Moles/Vol] 118 mmol/L High 98-109 [facility] Comment on above: Performed By: #### 4 8066-5, , 1987-08, 2275-07, XENIA, CBCA ####[facility] ([id number])[address] [place] [address] CO2 [Moles/Vol] 23 mmol/L Normal 22-32 [facility] Comment on above: Performed By: #### 4 8066-5, , 1987-08, 2275-07, XENIA, CBCA ####[facility] ([id number])[address] [place] [address] Creatinine [Mass/Vol] 0.69 mg/dL Normal 0.40-1.00 [facility] Comment on above: Result Comment: METH OD TRACEABLE TO IDMS STANDARD Performed By: #### 4 8066-5, , 1987-08, 2275-07, XENIA, CBCA ####[facility] ([id number])[address] [place] [address] eGFR (CKD-EPI) NON-RACE DEPENDENT >90 Normal >59 [facility] Comment on above: Result Comment: Reported eGFR is based on the CKD-EPI 2020 equation that does not use a race coefficient. Performed By: #### 4 8066-5, , 1987-08, 2275-07, CMP, CBCA ####[facility] ([id number])[address] [place] [address] Glucose [Mass/Vol] 134 mg/dL High 65-99 [facility] Comment on above: Performed By: #### 4 8066-5, , 1987-08, 2275-07, CMP, CBCA ####[facility] ([id number])[address] [place] [address] Potassium [Moles/Vol] 3.4 mmol/L Low 3.5-5.0 [facility] Comment on above: Performed By: #### 4 8066-5, , 1987-08, 2275-07, CMP, CBCA ####[facility] ([id number])[address] [place] [address] Protein [Mass/Vol] 7.4 g/dL Normal 6.0-8.0 [facility] Comment on above: Performed By: #### 4 8066-5, , 1987-08, 2275-07, CMP, CBCA ####[facility] ([id number])[address] [facility] [address] Sodium [Moles/Vol] 146 mmol/L Normal 134-146 [facility] Comment on above: Performed By: #### 4 8066-5, , 1987-08, 2275-07, CMP, CBCA ####[facility] ([id number])[address] [facility] [place] [address] Urea nitrogen [Mass/Vol] 20 mg/dL Normal 5-23 [facility] Comment on above: Performed By: #### 4 8066-5, , 1987-08, 2275-07, CMP, CBCA ####[facility] ([id number])[address] [place] [address] CRP [Mass/Vol]on 04-23-2023 C REACTIVE PROTEIN 3.4 mg/dL High 0.000-0.7 4 4 [facility] Comment on above: Performed By: #### 4 8066-5, , 1987-08, 2275-07, CMP, CBCA ####[facility] ([id number])[address] [place] [address] FERRITINon 04-23-2023 Ferritin [Mass/Vol] 41 ng/mL Normal 11-307 [facility] Comment on above: Performed By: #### 4 8066-5, , 1987-08, 2275-07, XENIA, CBCA ####[facility] ([id number])[address] [place] [address] Fibrin D-dimer DDU (PPP) [Ma ss/Vol]on 04-23-2023 D DIMER 418 ng/mL DDU High <255 [facility] Comment on above: Result Comment: Results [...] 4 8066-5, , 1987-08, 2275-07, XENIA, CBCA ####[facility] ([id number])[address] [place] [address] Glucose Glucometer (BldC) [M ass/Vol]on 04-23-2023 Glucose [Mass/Vol] 129 mg/dL High 65-99 [facility] Glucose [Mass/Vol] 96 mg/dL Normal 65-99 [facility] Glucose [Mass/Vol] 136 mg/dL High 65-[address] [facility] Glucose [Mass/Vol] 127 mg/dL High 65-[address] [facility] Glucose [Mass/Vol] 115 mg/dL High 65-99 [facility] LDH [Catalytic activity/Vol] on 04-23-2023 LDH 152 U/L Normal 100-235 [facility] Comment on above: Performed By: #### 4 8066-5, , 1987-08, 2275-07, XENIA, CBCA ####[facility] [facility] ([id number])[address] [place] [address] LOWER RESPIRATORY CULTUREon 04-23-2023 Bacteria identified Respiratory [...] 16 F TOBRAMYCIN S <=1 F Susceptible [facility] Comment on above: Performed By: #### C LANA, 41450-6, 05525-0, CBCA #### [facility] ([id number]) [address] [facility] [place] [address] POTASSIUMon 04-23-2023 Potassium [Moles/Vol] 3.7 mmol/L Normal 3.5-5.0 [facility] Comment on above: Performed By: #### C LANA, 33964-3, 98675-2, CBCA #### [facility] ([id number]) [address] [facility] [place] [address] XR CHEST 1 VWon 04-23-2023 XR CHEST [...] Bateman MD on 04/23/2023 6:11 AM Normal [facility] CBC AND AUTO DIFFon 04-22-20 23 Eosinophils (Bld) [#/Vol] 0.1 10*3/uL Normal 0.0-0.4 [facility] Comment on above: Performed By: #### 6 24-7 #### [facility] ([id number]) [address], [address] [place] [address] Eosinophils/100 WBC (Bld) 1.0 % Normal [facility] Comment on above: Performed By: #### 6 -7 #### [facility] ([id number]) [address], [facility] [address] [place] [address] Erythrocyte distribution width (RBC) [Ratio] 20.5 % High 11.5-15.0 [facility] Comment on above: Performed By: #### 6 -7 #### [facility] ([id number]) [address], [address] [place] [address] Hematocrit (Bld) [Volume fraction] 34.1 % Low 35-47 [facility] Comment on above: Performed By: #### 6 -7 #### [facility] ([id number]) [address], [address] [place] [address] Hemoglobin (Bld) [Mass/Vol] 10.8 g/dL Low 11.7-15.5 [facility] Comment on above: Performed By: #### 6 24-7 #### [facility] ([id number]) [address], [address] [place] [address] LYMPHOCYTE, ATYPICAL 2.0 % Normal [facility] Comment on above: Performed By: #### 6 -7 #### [facility] ([id number]) [address] [address] [place] [address] Lymphocytes (Bld) [#/Vol] 2.0 10*3/uL Normal 1.0-3.5 [facility] Comment on above: Performed By: #### 6 -7 #### [facility] ([id number]) [address], [address] [place] [address] Lymphocytes/100 WBC (Bld) 26.5 % Normal [facility] Comment on above: Performed By: #### 6 24-7 #### [facility] ([id number]) [address], [address] [place] [address] MCH (RBC) [Entitic mass] 26.9 pg Low 27-34 [facility] Comment on above: Performed By: #### 6 24-7 #### [facility] ([id number]) [address], [address] [place] [address] MCHC (RBC) [Mass/Vol] 31.6 g/dL Low 32-36 [facility] Comment on above: Performed By: #### 6 24-7 #### [facility] ([id number]) [address], [address] [place] [address] MCV (RBC) [Entitic vol] 85 fL Normal 80-100 [facility] Comment on above: Performed By: #### 6 24-7 #### [facility] ([id number]) [address], [address] [place] [address] Monocytes (Bld) [#/Vol] 0.9 10*3/uL Normal 0-0.9 [facility] Comment on above: Performed By: #### 6 24-7 #### [facility] ([id number]) [address], [address] [place] [address] Monocytes/100 WBC (Bld) 12.7 % Normal [facility] Comment on above: Performed By: #### 6 24-7 #### [facility] ([id number]) [address], [address] [place] [address] Neutrophils (Bld) [#/Vol] 4.2 10*3/uL Normal 1.5-6.6 [facility] Comment on above: Performed By: #### 6 24-7 #### [facility] ([id number]) [address], [address] [place] [address] NUCLEATED RBC 1.0 /100 WBC Normal 0.0-1.0 [facility] Comment on above: Performed By: #### 6 24-7 #### [facility] ([id number]) [address], [address] [place] [address] Platelet mean volume (Bld) [Entitic vol] 7.8 fL Normal 7-12 [facility] Comment on above: Performed By: #### 6 24-7 #### [facility] ([id number]) [address], [address] [place] [address] Platelets (Bld) [#/Vol] 370 10*3/uL Normal 150-450 [facility] Comment on above: Performed By: #### 6 24-7 #### [facility] ([id number]) [address], [address] [place] [address] POLYCHROMASIA 1+ Abnormal NONE [facility] Comment on above: Performed By: #### 6 24-7 #### [facility] ([id number]) [address], [address] [place] [address] RBC COUNT 4.00 X10E12/L Normal 3.80-5.20 [facility] Comment on above: Performed By: #### 6 24-7 #### [facility] ([id number]) [address], [address] [place] [address] SEG NEUTROPHIL 57.8 % Normal [facility] Comment on above: Performed By: #### 6 24-7 #### [facility] ([id number]) [address], [address] [place] [address] WBC (Bld) [#/Vol] 7.3 10*3/uL Normal 4.0-11.0 [facility] Comment on above: Performed By: #### 6 24-7 #### [facility] ([id number]) [address], [address] [place] [address] COMPREHENSIVE METABOLIC PANE Meek 04-22-2023 Albumin [Mass/Vol] 3.0 g/dL Low 3.2-5.3 [facility] Comment on above: Performed By: #### 6 -7 #### [facility] ([id number]) [address], [address] [place] [address] ALP [Catalytic activity/Vol] 68 U/L Normal 39-130 [facility] Comment on above: Performed By: #### 6 -7 #### [facility] ([id number]) [address], [address] [place] [address] ALT [Catalytic activity/Vol] 16 U/L Normal 0-31 [facility] Comment on above: Performed By: #### 6 -7 #### [facility] ([id number]) [address], [address] [place] [address] Anion gap [Moles/Vol] 11 mmol/L Normal 5-15 [facility] Comment on above: Performed By: #### 6 24-7 #### [facility] ([id number]) [address], [address] [place] [address] AST [Catalytic activity/Vol] 18 U/L Normal 0-41 [facility] Comment on above: Performed By: #### 6 -7 #### [facility] ([id number]) [address] [place] [address] Bilirubin [Mass/Vol] 0.5 mg/dL Normal 0.3-1.2 [facility] Comment on above: Performed By: #### 6 24-7 #### [facility] ([id number]) [address], [address] [place] [address] Calcium [Mass/Vol] 9.5 mg/dL Normal 8.5-10.5 [facility] Comment on above: Performed By: #### 6 24-7 #### [facility] ([id number]) [address], [address] [place] [address] Chloride [Moles/Vol] 113 mmol/L High 98-109 [facility] Comment on above: Performed By: #### 6 24-7 #### [facility] ([id number]) [address], [address] [place] [address] CO2 [Moles/Vol] 22 mmol/L Normal 22-32 [facility] Comment on above: Performed By: #### 6 24-7 #### [facility] ([id number]) [address], [address] [place] [address] Creatinine [Mass/Vol] 0.85 mg/dL Normal 0.40-1.00 [facility] Comment on above: Result Comment: METH OD TRACEABLE TO IDMS STANDARD Performed By: #### 6 24-7 #### [facility] ([id number]) [address], [address] [place] [address] GFR/1.73 sq M.predicted among non-blacks MDRD (S/P/Bld) [Vol rate/Area] 78 mL/min/{1.73_m2} Normal >59 [facility] Comment on above: Result Comment: Reported eGFR is based on the CKD-EPI 1 equation that does not use a race coefficient. Performed By: #### 6 24-7 #### [facility] ([id number]) [address], [address] [place] [address] Glucose [Mass/Vol] 107 mg/dL High 65-99 [facility] Comment on above: Performed By: #### 6 24-7 #### [facility] ([id number]) [address], [address] [place] [address] Potassium [Moles/Vol] 3.3 mmol/L Low 3.5-5.0 [facility] Comment on above: Performed By: #### 6 24-7 #### [facility] ([id number]) [address], [address] [place] [address] Protein [Mass/Vol] 7.6 g/dL Normal 6.0-8.0 [facility] Comment on above: Performed By: #### 6 24-7 #### [facility] ([id number]) [address], [address] [place] [address] Sodium [Moles/Vol] 146 mmol/L Normal 134-146 [facility] Comment on above: Performed By: #### 6 24-7 #### [facility] ([id number]) [address], [address] [place] [address] Urea nitrogen [Mass/Vol] 22 mg/dL Normal 5-23 [facility] Comment on above: Performed By: #### 6 24-7 #### [facility] ([id number]) [address], [address] [place] [address] Glucose Glucometer (dC) [M ass/Vol]on 04-22-2023 Glucose [Mass/Vol] 149 mg/dL High 65-99 [facility] Glucose [Mass/Vol] 126 mg/dL High 65-99 [facility] Glucose [Mass/Vol] 109 mg/dL High 65-99 [facility] Glucose [Mass/Vol] 103 mg/dL High 65-99 [facility] POTASSIUMon 04-22-2023 Potassium [Moles/Vol] 3.8 mmol/L Normal 3.5-5.0 [facility] Comment on above: Performed By: #### 6 24-7 #### [facility] ([id number]) [address], [address] [place] [address] Potassium [Moles/Vol] 3.3 mmol/L Low 3.5-5.0 [facility] Comment on above: Performed By: #### 6 24-7 #### [facility] ([id number]) [address] [facility] [place] [address] TRIGLYCERIDEon 04-22-2023 Triglyceride [Mass/Vol] 510 mg/dL High 27-150 [facility] Comment on above: Performed By: #### 6 24-7 #### [facility] ([id number]) [address] [facility] [place] [address] XR CHEST 1 VWon 04-22-2023 XR CHEST [...] Gustafson MD on 04/22/2023 6:14 AM Normal [facility] CBC AND AUTO DIFFon 04-21-20 23 ABSOLUTE BASOPHIL 0.0 X10E9/L Normal 0.0-0.2 [facility] Comment on above: Performed By: #### 2 571-8 ####[facility] ([id number])[address] [facility], [address], [place] [address]#### CMP, CBCA ####[facility] ([id number])[address] [place] [address] ABSOLUTE NEUTROPHIL 4.3 X10E9/L Normal 1.5-6.6 [facility] Comment on above: Performed By: #### 2 571-8 ####[facility] ([id number])[address] [address], [place] [address]#### CMP, CBCA ####[facility] ([id number])[address] [place] [address] Basophils/100 WBC (Bld) 0.4 % Normal [facility] Comment on above: Performed By: #### 2 571-8 ####[facility] ([id number])[address] [facility] [address] [place] [address]#### CMP, CBCA ####[facility] ([id number])[address] [place] [address] Eosinophils (Bld) [#/Vol] 0.1 10*3/uL Normal 0.0-0.4 [facility] Comment on above: Performed By: #### 2 571-8 ####[facility] ([id number])[address] [facility] [address] [place] [address]#### CMP, CBCA ####[facility] ([id number])[address] [place] [address] Eosinophils/100 WBC (Bld) 1.2 % Normal [facility] Comment on above: Performed By: #### 2 571-8 ####[facility] ([id number])[address] [address] [place] [address]#### CMP, CBCA ####[facility] ([id number])[address] [place] [address] Erythrocyte distribution width (RBC) [Ratio] 20.6 % High 11.5-15.0 [facility] Comment on above: Performed By: #### 2 571-8 ####[facility] ([id number])[address] [address], [place] [address]#### CMP, CBCA ####[facility] ([id number])[address] [place] [address] Hematocrit (Bld) [Volume fraction] 31.6 % Low 35-47 [facility] Comment on above: Performed By: #### 2 571-8 ####[facility] ([id number])[address] [address] [place] [address]#### CMP, CBCA ####[facility] ([id number])[address] [place] [address] Hemoglobin (Bld) [Mass/Vol] 10.1 g/dL Low 11.7-15.5 [facility] Comment on above: Performed By: #### 2 571-8 ####[facility] ([id number])[address] [address]#### CMP, CBCA ####[facility] ([id number])[facility] [address] Lymphocytes (Bld) [#/Vol] 1.3 10*3/uL Normal 1.0-3.5 [facility] Comment on above: Performed By: #### 2 571-8 ####[facility] ([id number])[address] [address]#### CMP, CBCA ####[facility] ([id number])[facility] [place] [address] Lymphocytes/100 WBC (Bld) 21.1 % Normal [facility] Comment on above: Performed By: #### 2 571-8 ####[facility] ([id number])[address] [address] [place] [address]#### CMP, CBCA ####[facility] ([id number])[address] [place] [address] MCH (RBC) [Entitic mass] 27.2 pg Normal 27-34 [facility] Comment on above: Performed By: #### 2 571-8 ####[facility] ([id number])[address], [address] [place] [address]#### CMP, CBCA ####[facility] ([id number])[address] [place] [address] MCHC (RBC) [Mass/Vol] 32.1 g/dL Normal 32-36 [facility] Comment on above: Performed By: #### 2 571-8 ####[facility] ([id number])[address], [address] [place] [address]#### CMP, CBCA ####[facility] ([id number])[address] [place] [address] MCV (RBC) [Entitic vol] 85 fL Normal 80-100 [facility] Comment on above: Performed By: #### 2 571-8 ####[facility] ([id number])[address] [address] [place] [address]#### CMP, CBCA ####[facility] ([id number])[address] [place] [address] Monocytes (Bld) [#/Vol] 0.5 10*3/uL Normal 0-0.9 [facility] Comment on above: Performed By: #### 2 571-8 ####[facility] ([id number])[address] [address] [place] [address]#### CMP, CBCA ####[facility] ([id number])[address] [place] [address] Monocytes/100 WBC (Bld) 8.3 % Normal [facility] Comment on above: Performed By: #### 2 571-8 ####[facility] ([id number])[address] [address] [place] [address]#### CMP, CBCA ####[facility] ([id number])[address] [place] [address] Neutrophils/100 WBC (Bld) 69.0 % Normal [facility] Comment on above: Performed By: #### 2 571-8 ####[facility] ([id number])[address] [place] [address]#### CMP, CBCA ####[facility] ([id number])[address] [place] [address] Platelet mean volume (Bld) [Entitic vol] 7.7 fL Normal 7-12 [facility] Comment on above: Performed By: #### 2 571-8 ####[facility] ([id number])[address] [place] [address]#### CMP, CBCA ####[facility] ([id number])[address] [place] [address] Platelets (Bld) [#/Vol] 349 10*3/uL Normal 150-450 [facility] Comment on above: Performed By: #### 2 571-8 ####[facility] ([id number])[address] [address] [place] [address]#### CMP, CBCA ####[facility] ([id number])[address] [place] [address] RBC COUNT 3.73 X10E12/L Low 3.80-5.20 [facility] Comment on above: Performed By: #### 2 571-8 ####[facility] ([id number])[address] [address] [place] [address]#### CMP, CBCA ####[facility] ([id number])[address] [place] [address] RBC morphology finding Nom (Bld) REVIEWED Normal [facility] Comment on above: Performed By: #### 2 571-8 ####[facility] ([id number])[address] [place] [address]#### CMP, CBCA ####[facility] ([id number])[address] [place] [address] WBC (Bld) [#/Vol] 6.2 10*3/uL Normal 4.0-11.0 [facility] Comment on above: Performed By: #### 2 571-8 ####[facility] ([id number])[address] [facility], [address] [place] [address]#### CMP, CBCA ####[facility] ([id number])[address] [place] [address] COMPREHENSIVE METABOLIC PANE [facility] 04-21-2023 Albumin [Mass/Vol] 2.7 g/dL Low 3.2-5.3 [facility] Comment on above: Performed By: #### 2 571-8 ####[facility] ([id number])[address] [facility] [address] [place] [address]#### CMP, CBCA ####[facility] ([id number])[address] [place] [address] ALP [Catalytic activity/Vol] 63 U/L Normal 39-130 [facility] Comment on above: Performed By: #### 2 571-8 ####[facility] ([id number])[address] [facility] [address] [place] [address]#### CMP, CBCA ####[facility] ([id number])[address] [place] [address] ALT [Catalytic activity/Vol] 14 U/L Normal 0-31 [facility] Comment on above: Performed By: #### 2 571-8 ####[facility] ([id number])[address] [facility] [address] [place] [address]#### CMP, CBCA ####[facility] ([id number])[address] [place] [address] Anion gap [Moles/Vol] 7 mmol/L Normal 5-15 [facility] Comment on above: Performed By: #### 2 571-8 ####[facility] ([id number])[address], [place] [address]#### CMP, CBCA ####[facility] ([id number])[address] [place] [address] AST [Catalytic activity/Vol] 16 U/L Normal 0-41 [facility] Comment on above: Performed By: #### 2 571-8 ####[facility] ([id number])[address] [facility], [address], [place] [address]#### CMP, CBCA ####[facility] ([id number])[address] [place] [address] Bilirubin [Mass/Vol] 0.7 mg/dL Normal 0.3-1.2 [facility] Comment on above: Performed By: #### 2 571-8 ####[facility] ([id number])[address] [facility] [address], [place] [address]#### CMP, CBCA ####[facility] ([id number])[address] [place] [address] Calcium [Mass/Vol] 8.2 mg/dL Low 8.5-10.5 [facility] Comment on above: Performed By: #### 2 571-8 ####[facility] ([id number])[address] [place] [address]#### CMP, CBCA ####[facility] ([id number])[address] [place] [address] Chloride [Moles/Vol] 115 mmol/L High 98-109 [facility] Comment on above: Performed By: #### 2 571-8 ####[facility] ([id number])[address], [place] [address]#### CMP, CBCA ####[facility] ([id number])[address] [place] [address] CO2 [Moles/Vol] 23 mmol/L Normal 22-32 [facility] Comment on above: Performed By: #### 2 571-8 ####[facility] ([id number])[address] [facility], [address], [place] [address]#### CMP, CBCA ####[facility] ([id number])[address] [place] [address] Creatinine [Mass/Vol] 0.77 mg/dL Normal 0.40-1.00 [facility] Comment on above: Result Comment: METH OD TRACEABLE TO IDMS STANDARD Performed By: #### 2 571-8 ####[facility] ([id number])[address] [facility] [address], [place] [address]#### CMP, CBCA ####[facility] ([id number])[address] [place] [address] GFR/1.73 sq M.predicted among non-blacks MDRD (S/P/Bld) [Vol rate/Area] 88 mL/min/{1.73_m2} Normal >59 [facility] Comment on above: Result Comment: Reported eGFR is based on the CKD-EPI 1 equation that does not use a race coefficient. Performed By: #### 2 571-8 ####[facility] ([id number])[address] [facility], [address], [place] [address]#### CMP, CBCA ####[facility] ([id number])[address] [place] [address] Glucose [Mass/Vol] 100 mg/dL High 65-99 [facility] Comment on above: Performed By: #### 2 571-8 ####[facility] ([id number])[address] [facility] [address], [place] [address]#### CMP, CBCA ####[facility] ([id number])[address] [place] [address] Potassium [Moles/Vol] 4.1 mmol/L Normal 3.5-5.0 [facility] Comment on above: Performed By: #### 2 571-8 ####[facility] ([id number])[address], [address] [place] [address]#### CMP, CBCA ####[facility] ([id number])[address] [place] [address] Protein [Mass/Vol] 6.8 g/dL Normal 6.0-8.0 [facility] Comment on above: Performed By: #### 2 571-8 ####[facility] ([id number])[address], [address] [place] [address]#### CMP, CBCA ####[facility] ([id number])[address] [place] [address] Sodium [Moles/Vol] 145 mmol/L Normal 134-146 [facility] Comment on above: Performed By: #### 2 571-8 ####[facility] ([id number])[address], [address] [place] [address]#### CMP, CBCA ####[facility] ([id number])[address] [place] [address] Urea nitrogen [Mass/Vol] 21 mg/dL Normal 5-23 [facility] Comment on above: Performed By: #### 2 571-8 ####[facility] ([id number])[address], [address], [place] [address]#### CMP, CBCA ####[facility] ([id number])[address] [place] [address] Glucose Glucometer (BldC) [M ass/Vol]on 04-21-2023 Glucose [Mass/Vol] 170 mg/dL High 65-99 [facility] Glucose [Mass/Vol] 102 mg/dL High 65-99 [facility] Glucose [Mass/Vol] 93 mg/dL Normal 65-99 [facility] Glucose [Mass/Vol] 115 mg/dL High 65-99 [facility] TRIGLYCERIDEon 04-21-2023 Triglyceride [Mass/Vol] 422 mg/dL High 27-150 [facility] Comment on above: Performed By: #### 2 571-8 ####[facility] ([id number])[address], [address] [place] [id number]#### CMP, CBCA ####[facility] ([id number])[address] [place] [address] XR CHEST 1 VWon 04-21-2023 XR CHEST [...] Kim MD on 04/21/2023 5:51 AM Normal [facility] CBC AND AUTO DIFFon 04-20-20 23 ABSOLUTE BASOPHIL 0.0 X10E9/L Normal 0.0-0.2 [facility] Comment on above: Performed By: #### C BCA, CMP ####[facility] ([id number])[address] [place] [address]#### 2571-8 ####[facility] ([id number])[address], [address] [place] [address] ABSOLUTE NEUTROPHIL 3.9 X10E9/L Normal 1.5-6.6 [facility] Comment on above: Performed By: #### C BCA, CMP ####[facility] ([id number])[address] [place] [address]#### 2571-8 ####[facility] ([id number])[address], [address], [place] [address] Basophils/100 WBC (Bld) 0.3 % Normal [facility] Comment on above: Performed By: #### C BCA, CMP ####[facility] ([id number])[address] [place] [address]#### 2571-8 ####[facility] ([id number])[address], [address], [place] [address] Eosinophils (Bld) [#/Vol] 0.1 10*3/uL Normal 0.0-0.4 [facility] Comment on above: Performed By: #### C BCA, CMP ####[facility] ([id number])[address] [place] [address]#### 2571-8 ####[facility] ([id number])[address], [address], [place] [address] Eosinophils/100 WBC (Bld) 1.1 % Normal [facility] Comment on above: Performed By: #### C BCA, CMP ####[facility] ([id number])[address] [place] [address]#### 2571-8 ####[facility] ([id number])[address] [address], [place] [address] Erythrocyte distribution width (RBC) [Ratio] 21.9 % High 11.5-15.0 [facility] [facility] Comment on above: Performed By: #### C BCA, CMP ####[facility] ([id number])[address] [place] [address]#### 2571-8 ####[facility] ([id number])[address], [address], [place] [address] Hematocrit (Bld) [Volume fraction] 31.9 % Low 35-47 [facility] Comment on above: Performed By: #### C BCA, CMP ####[facility] ([id number])[address] [place] [address]#### 2571-8 ####[facility] ([id number])[address], [place] [address] Hemoglobin (Bld) [Mass/Vol] 10.0 g/dL Low 11.7-15.5 [facility] Comment on above: Performed By: #### C BCA, CMP ####[facility] ([id number])[address] [place] [address]#### 2571-8 ####[facility] ([id number])[address] [address], [place] [address] Lymphocytes (Bld) [#/Vol] 1.2 10*3/uL Normal 1.0-3.5 [facility] Comment on above: Performed By: #### C BCA, CMP ####[facility] ([id number])[address] [place] [address]#### 2571-8 ####[facility] ([id number])[address] [address] [place] [address] Lymphocytes/100 WBC (Bld) 20.9 % Normal [facility] Comment on above: Performed By: #### C BCA, CMP ####[facility] ([id number])[address] [place] [address]#### 2571-8 ####[facility] ([id number])[address], [address], [place] [address] MCH (RBC) [Entitic mass] 26.5 pg Low 27-34 [facility] Comment on above: Performed By: #### C BCA, CMP ####[facility] ([id number])[address] [place] [address]#### 2571-8 ####[facility] ([id number])[address], [address], [place] [address] MCHC (RBC) [Mass/Vol] 31.3 g/dL Low 32-36 [facility] Comment on above: Performed By: #### C BCA, CMP ####[facility] ([id number])[address] [place] [address]#### 2571-8 ####[facility] ([id number])[address], [address], [place] [address] MCV (RBC) [Entitic vol] 85 fL Normal 80-100 [facility] Comment on above: Performed By: #### C BCA, CMP ####[facility] ([id number])[address] [place] [address]#### 2571-8 ####[facility] ([id number])[address], [address], [place] [address] Monocytes (Bld) [#/Vol] 0.5 10*3/uL Normal 0-0.9 [facility] Comment on above: Performed By: #### C BCA, CMP ####[facility] ([id number])[address] [place] [address]#### 2571-8 ####[facility] ([id number])[address], [address] [place] [address] Monocytes/100 WBC (Bld) 8.8 % Normal [facility] Comment on above: Performed By: #### C BCA, CMP ####[facility] ([id number])[address] [place] [address]#### 2571-8 ####[facility] ([id number])[address], [address] [place] [address] Neutrophils/100 WBC (Bld) 68.9 % Normal [facility] Comment on above: Performed By: #### C BCA, CMP ####[facility] ([id number])[address] [place] [address]#### 2571-8 ####[facility] ([id number])[address], [address] [address] Platelet mean volume (Bld) [Entitic vol] 7.5 fL Normal 7-12 [facility] Comment on above: Performed By: #### C BCA, CMP ####[facility] ([id number])[address] [place] [address]#### 2571-8 ####[facility] ([id number])[address], [address] [place] [address] Platelets (Bld) [#/Vol] 347 10*3/uL Normal 150-450 [facility] Comment on above: Performed By: #### C BCA, CMP ####[facility] ([id number])[address] [place] [address]#### 2571-8 ####[facility] ([id number])[address], [address], [place] [address] RBC COUNT 3.77 X10E12/L Low 3.80-5.20 [facility] Comment on above: Performed By: #### C BCA, CMP ####[facility] ([id number])[address] [place] [address]#### 2571-8 ####[facility] ([id number])[address] [address], [place] [address] RBC morphology finding Nom (Bld) REVIEWED Normal [facility] Comment on above: Performed By: #### C BCA, CMP ####[facility] ([id number])[address] [place] [address]#### 2571-8 ####[facility] ([id number])[address], [address] [address] WBC (Bld) [#/Vol] 5.6 10*3/uL Normal 4.0-11.0 [facility] Comment on above: Performed By: #### C BCA, CMP ####[facility] ([id number])[address] [place] [address]#### 2571-8 ####[facility] ([id number])[address], [address], [place] [address] COMPREHENSIVE METABOLIC PANE Meek 04-20-2023 Albumin [Mass/Vol] 2.6 g/dL Low 3.2-5.3 [facility] Comment on above: Performed By: #### C BCA, CMP ####[facility] ([id number])[address] [place] [address]#### 2571-8 ####[facility] ([id number])[address], [address] [place] [address] ALP [Catalytic activity/Vol] 66 U/L Normal 39-130 [facility] Comment on above: Performed By: #### C BCA, CMP ####[facility] ([id number])[address] [place] [address]#### 2571-8 ####[facility] ([id number])[address], [address] [place] [place] [address] ALT [Catalytic activity/Vol] 14 U/L Normal 0-31 [facility] Comment on above: Performed By: #### C BCA, CMP ####[facility] ([id number])[address] [place] [address]#### 2571-8 ####[facility] ([id number])[address], [address] [place] [address] Anion gap [Moles/Vol] 7 mmol/L Normal 5-15 [facility] Comment on above: Performed By: #### C BCA, CMP ####[facility] ([id number])[address] [place] [address]#### 2571-8 ####[facility] ([id number])[address], [address], [place] [address] AST [Catalytic activity/Vol] 14 U/L Normal 0-41 [facility] Comment on above: Performed By: #### C BCA, CMP ####[facility] ([id number])[address] [place] [address]#### 2571-8 ####[facility] ([id number])[address], [address], [place] [address] Bilirubin [Mass/Vol] 0.5 mg/dL Normal 0.3-1.2 [facility] Comment on above: Performed By: #### C BCA, CMP ####[facility] ([id number])[address] [place] [address]#### 2571-8 ####[facility] ([id number])[address], [address] [place] [place] [address] Calcium [Mass/Vol] 8.4 mg/dL Low 8.5-10.5 [facility] Comment on above: Performed By: #### C BCA, CMP ####[facility] ([id number])[address] [place] [address]#### 2571-8 ####[facility] ([id number])[address], [place] [address] Chloride [Moles/Vol] 115 mmol/L High 98-109 [facility] Comment on above: Performed By: #### C BCA, CMP ####[facility] ([id number])[address] [place] [address]#### 2571-8 ####[facility] ([id number])[address], [address], [place] [address] CO2 [Moles/Vol] 23 mmol/L Normal 22-32 [facility] Comment on above: Performed By: #### C BCA, CMP ####[facility] ([id number])[address] [place] [address]#### 2571-8 ####[facility] ([id number])[address] [address] Creatinine [Mass/Vol] 0.75 mg/dL Normal 0.40-1.00 [facility] Comment on above: Result Comment: METH OD TRACEABLE TO IDMS STANDARD Performed By: #### C BCA, CMP ####[facility] ([id number])[address] [place] [address]#### 2571-8 ####[facility] ([id number])[address] [address] eGFR (CKD-EPI) NON-RACE DEPENDENT >90 Normal >59 [facility] Comment on above: Result Comment: Reported eGFR is based on the CKD-EPI 2020 equation that does not use a race coefficient. Performed By: #### C BCA, CMP ####[facility] ([id number])[address] [place] [address]#### 2571-8 ####[facility] ([id number])[address] [address] Glucose [Mass/Vol] 100 mg/dL High 65-99 [facility] Comment on above: Performed By: #### C BCA, CMP ####[facility] ([id number])[address] [place] [address]#### 2571-8 ####[facility] ([id number])[address] [facility] [address] [place] [address] Potassium [Moles/Vol] 3.7 mmol/L Normal 3.5-5.0 [facility] Comment on above: Performed By: #### C BCA, CMP ####[facility] ([id number])[address] [place] [address]#### 2571-8 ####[facility] ([id number])[address], [address], [place] [address] Protein [Mass/Vol] 7.0 g/dL Normal 6.0-8.0 [facility] Comment on above: Performed By: #### C BCA, CMP ####[facility] ([id number])[address] [place] [address]#### 2571-8 ####[facility] ([id number])[address], [address] [place] [address] Sodium [Moles/Vol] 145 mmol/L Normal 134-146 [facility] Comment on above: Performed By: #### C BCA, CMP ####[facility] ([id number])[address] [place] [address]#### 2571-8 ####[facility] ([id number])[address], [address] [place] [address] Urea nitrogen [Mass/Vol] 16 mg/dL Normal 5-23 [facility] Comment on above: Performed By: #### C BCA, CMP ####[facility] ([id number])[address] [place] [address]#### 2571-8 ####[facility] ([id number])[address], [address] [place] [address] Glucose Glucometer (BldC) [M ass/Vol]on 04-20-2023 Glucose [Mass/Vol] 135 mg/dL High 65-99 [facility] Glucose [Mass/Vol] 105 mg/dL High 65-99 [facility] Glucose [Mass/Vol] 87 mg/dL Normal 65-99 [facility] Glucose [Mass/Vol] 97 mg/dL Normal 65-99 [facility] POTASSIUMon 04-20-2023 Potassium [Moles/Vol] 3.8 mmol/L Normal 3.5-5.0 [facility] Comment on above: Performed By: #### 2 823-3 ####[facility] ([id number])[address] [place] [address] Potassium [Moles/Vol] 4.1 mmol/L Normal 3.5-5.0 [facility] Comment on above: Performed By: #### 2 823-3 ####[facility] ([id number])[address] [place] [address] TRIGLYCERIDEon 04-20-2023 Triglyceride [Mass/Vol] 335 mg/dL High 27-150 [facility] Comment on above: Performed By: #### C BCA, CMP ####[facility] ([id number])[address] [place] [address]#### 2571-8 ####[facility] ([id number])[address] [facility] [address], [place] [address] XR CHEST 1 VWon 04-20-2023 XR CHEST [...] Tristen Neely MD on 04/20/2023 5:33 AM Normal [facility] ARTERIAL BLOOD GASon 023 RAVINDRA'S TEST Pass Normal [facility] Comment on above: Performed By: #### A BG #### [facility] ([id number]) [address] [facility] [place] [address] BASE,DEFICIT 1.0 MMOL/L Normal 0.0-2.0 [facility] Comment on above: Performed By: #### A BG #### [facility] ([id number]) [address] [place] [address] Body temperature 98.6 [degF] Normal 37.0 [facility] Comment on above: Performed By: #### A BG #### [facility] ([id number]) [address] [place] [address] HCO3 (Bld) [Moles/Vol] 24.2 mmol/L Normal 22-26 [facility] Comment on above: Performed By: #### A BG #### [facility] ([id number]) [address] [place] [address] INSP. O2 CONC. 40 % Normal [facility] Comment on above: Performed By: #### A BG #### [facility] ([id number]) [address] [place] [address] Oxygen (Bld) [Partial pressure] 69 mm[Hg] Low 80-100 [facility] Comment on above: Performed By: #### A BG #### [facility] ([id number]) [address] [place] [address] Oxygen saturation in Blood 93.0 % Normal >90 [facility] Comment on above: Performed By: #### A BG #### [facility] ([id number]) [facility] [place] [address] OXYGEN SOURCE [facility] Comment on above: Performed By: #### A BG #### [facility] ([id number]) [address] [place] [address] PCO2 41.9 MMHG Normal 35-45 [facility] Comment on above: Performed By: #### A BG #### [facility] ([id number]) [address] [place] [address] pH (Bld) 7.371 [pH] Normal 7.350-7.45 0 [facility] Comment on above: Performed By: #### A BG #### [facility] ([id number]) [address] [place] [address] SAMPLE SITE LRad Normal [facility] Comment on above: Performed By: #### A BG #### [facility] ([id number]) [address] [place] [address] SAMPLE TYPE ARTERIAL Normal [facility] Comment on above: Performed By: #### A BG #### [facility] ([id number]) [address] [place] [address] CBC AND AUTO DIFFon 1224-20 23 ABSOLUTE BASOPHIL 0.0 X10E9/L Normal 0.0-0.2 [facility] Comment on above: Performed By: #### A BG #### [facility] ([id number]) [address] [place] [address] ABSOLUTE NEUTROPHIL 3.7 X10E9/L Normal 1.5-6.6 [facility] Comment on above: Performed By: #### A BG #### [facility] ([id number]) [address] [place] [address] Basophils/100 WBC (Bld) 0.3 % Normal [facility] Comment on above: Performed By: #### A BG #### [facility] ([id number]) [address] [place] [address] Eosinophils (Bld) [#/Vol] 0.0 10*3/uL Normal 0.0-0.4 [facility] Comment on above: Performed By: #### A BG #### [facility] ([id number]) [address] [place] [address] Eosinophils/100 WBC (Bld) 0.8 % Normal [facility] Comment on above: Performed By: #### A BG #### [facility] ([id number]) [address] [place] [address] Erythrocyte distribution width (RBC) [Ratio] 21.6 % High 11.5-15.0 [facility] Comment on above: Performed By: #### A BG #### [facility] ([id number]) [address] [place] [address] Hematocrit (Bld) [Volume fraction] 30.5 % Low 35-47 [facility] Comment on above: Performed By: #### A BG #### [facility] ([id number]) [address] [place] [address] Hemoglobin (Bld) [Mass/Vol] 9.8 g/dL Low 11.7-15.5 [facility] Comment on above: Performed By: #### A BG #### [facility] ([id number]) [address] [place] [address] Lymphocytes (Bld) [#/Vol] 1.5 10*3/uL Normal 1.0-3.5 [facility] Comment on above: Performed By: #### A BG #### [facility] ([id number]) [address] [place] [address] Lymphocytes/100 WBC (Bld) 26.6 % Normal [facility] Comment on above: Performed By: #### A BG #### [facility] ([id number]) [address] [place] [address] MCH (RBC) [Entitic mass] 27.0 pg Normal 27-34 [facility] Comment on above: Performed By: #### A BG #### [facility] ([id number]) [address] [place] [address] MCHC (RBC) [Mass/Vol] 32.1 g/dL Normal 32-36 [facility] Comment on above: Performed By: #### A BG #### [facility] ([id number]) [address] [place] [address] MCV (RBC) [Entitic vol] 84 fL Normal 80-100 [facility] Comment on above: Performed By: #### A BG #### [facility] ([id number]) [address] [place] [address] Monocytes (Bld) [#/Vol] 0.4 10*3/uL Normal 0-0.9 [facility] Comment on above: Performed By: #### A BG #### [facility] ([id number]) [address] [place] [address] Monocytes/100 WBC (Bld) 6.8 % Normal [facility] Comment on above: Performed By: #### A BG #### [facility] ([id number]) [address] [place] [address] Neutrophils/100 WBC (Bld) 65.5 % Normal [facility] Comment on above: Performed By: #### A BG #### [facility] ([id number]) [address] [place] [address] Platelet mean volume (Bld) [Entitic vol] 7.5 fL Normal 7-12 [facility] Comment on above: Performed By: #### A BG #### [facility] ([id number]) [address] [place] [address] Platelets (Bld) [#/Vol] 328 10*3/uL Normal 150-450 [facility] Comment on above: Performed By: #### A BG #### [facility] ([id number]) [address] [place] [address] RBC COUNT 3.62 X10E12/L Low 3.80-5.20 [facility] Comment on above: Performed By: #### A BG #### [facility] ([id number]) [address] [place] [address] RBC morphology finding Nom (d) REVIEWED Normal [facility] Comment on above: Performed By: #### A BG #### [facility] ([id number]) [address] [place] [address] WBC (Bld) [#/Vol] 5.6 10*3/uL Normal 4.0-11.0 [facility] Comment on above: Performed By: #### A BG #### [facility] ([id number]) [address] [place] [address] COMPREHENSIVE METABOLIC PANE [facility] 04-19-2023 Albumin [Mass/Vol] 2.4 g/dL Low 3.2-5.3 [facility] Comment on above: Performed By: #### A BG #### [facility] ([id number]) [address] [place] [address] ALP [Catalytic activity/Vol] 62 U/L Normal 39-130 [facility] Comment on above: Performed By: #### A BG #### [facility] ([id number]) [address] [place] [address] ALT [Catalytic activity/Vol] 16 U/L Normal 0-31 [facility] Comment on above: Performed By: #### A BG #### [facility] ([id number]) [address] [place] [address] Anion gap [Moles/Vol] 6 mmol/L Normal 5-15 [facility] Comment on above: Performed By: #### A BG #### [facility] ([id number]) [facility] [place] [address] AST [Catalytic activity/Vol] 18 U/L Normal 0-41 [facility] Comment on above: Performed By: #### A BG #### [facility] ([id number]) [address] [place] [address] Bilirubin [Mass/Vol] 0.5 mg/dL Normal 0.3-1.2 [facility] Comment on above: Performed By: #### A BG #### [facility] ([id number]) [facility] [place] [address] Calcium [Mass/Vol] 8.2 mg/dL Low 8.5-10.5 [facility] Comment on above: Performed By: #### A BG #### [facility] ([id number]) [address] [place] [address] Chloride [Moles/Vol] 115 mmol/L High 98-109 [facility] Comment on above: Performed By: #### A BG #### [facility] ([id number]) [facility] [place] [address] CO2 [Moles/Vol] 25 mmol/L Normal 22-32 [facility] Comment on above: Performed By: #### A BG #### [facility] ([id number]) [address] [place] [address] Creatinine [Mass/Vol] 0.97 mg/dL Normal 0.40-1.00 [facility] Comment on above: Result Comment: METH OD TRACEABLE TO IDMS STANDARD Performed By: #### A BG #### [facility] ([id number]) [address] [facility] [place] [address] GFR/1.73 sq M.predicted among non-blacks MDRD (S/P/Bld) [Vol rate/Area] 67 mL/min/{1.73_m2} Normal >59 [facility] Comment on above: Result Comment: Reported eGFR is based on the CKD-EPI 2020 equation that does not use a race coefficient. Performed By: #### A BG #### [facility] ([id number]) [address] [place] [address] Glucose [Mass/Vol] 98 mg/dL Normal 65-99 [facility] Comment on above: Performed By: #### A BG #### [facility] ([id number]) [facility] [place] [address] Potassium [Moles/Vol] 3.3 mmol/L Low 3.5-5.0 [facility] Comment on above: Performed By: #### A BG #### [facility] ([id number]) [address] [place] [address] [place] [address] Protein [Mass/Vol] 6.5 g/dL Normal 6.0-8.0 [facility] Comment on above: Performed By: #### A BG #### [facility] ([id number]) [facility] [place] [address] Sodium [Moles/Vol] 146 mmol/L Normal 134-146 [facility] Comment on above: Performed By: #### A BG #### [facility] ([id number]) [facility] [place] [address] Urea nitrogen [Mass/Vol] 14 mg/dL Normal 5-23 [facility] Comment on above: Performed By: #### A BG #### [facility] ([id number]) [facility] [place] [address] CRP [Mass/Vol]on 12-24-2023 C REACTIVE PROTEIN 6.1 mg/dL High 0.000-0.7 4 4 [facility] Comment on above: Performed By: #### A BG #### [facility] ([id number]) [address] [place] [address] Glucose Glucometer (BldC) [M ass/Vol]on 04-19-2023 Glucose [Mass/Vol] 176 mg/dL High 65-[address] [facility] Glucose [Mass/Vol] 92 mg/dL Normal 65-99 [facility] Glucose [Mass/Vol] 94 mg/dL Normal 65-99 [facility] Glucose [Mass/Vol] 93 mg/dL Normal 65-99 [facility] Lactate (P yong) [Moles/Vol]o n 04-19-2023 Lactate [Moles/Vol] 0.9 mmol/L Normal 0.4-2.0 [facility] Comment on above: Performed By: #### A BG #### [facility] ([id number]) [address] [place] [address] Natriuretic peptide B [Mass/ Vol]on 04-19-2023 Natriuretic peptide B (Bld) [Mass/Vol] 25 pg/mL Normal <100.0 [facility] Comment on above: Performed By: #### A BG #### [facility] ([id number]) [address] [place] [address] POTASSIUMon 04-19-2023 Potassium [Moles/Vol] 3.6 mmol/L Normal 3.5-5.0 [facility] Comment on above: Performed By: #### A BG #### [facility] ([id number]) [address] [place] [address] XR CHEST 1 VWon 04-19-2023 XR CHEST [...] Kim MD on 04/19/2023 5:41 AM Normal [facility] ARTERIAL BLOOD GASon 023 RAVINDRA'S TEST Normal [facility] Comment on above: Performed By: #### C LANA, 64519-1, , CBCA #### [facility] ([id number]) [address] [facility] [place] [address] BASE,DEFICIT 1.0 MMOL/L Normal 0.0-2.0 [facility] Comment on above: Performed By: #### C LANA, 68215-4, , CBCA #### [facility] ([id number]) [address] [facility] [place] [address] Body temperature 98.6 [degF] Normal 37.0 [facility] Comment on above: Performed By: #### C LANA, 85233-1, , CBCA #### [facility] ([id number]) [address] [facility] [place] [address] HCO3 (Bld) [Moles/Vol] 24.3 mmol/L Normal 22-26 [facility] Comment on above: Performed By: #### C LANA, 62889-3, , CBCA #### [facility] ([id number]) [address] [facility] [place] [address] INSP. O2 CONC. 50 % Normal [facility] Comment on above: Performed By: #### C LANA, 32682-0, , CBCA #### [facility] ([id number]) [address] [place] [address] Oxygen (Bld) [Partial pressure] 71 mm[Hg] Low 80-100 [facility] Comment on above: Performed By: #### C LANA, 76089-6, , CBCA #### [facility] ([id number]) [address] [place] [address] Oxygen saturation in Blood 94.0 % Normal >90 [facility] Comment on above: Performed By: #### C LANA, 06087-5, 47986-3, CBCA #### [facility] ([id number]) [address] [place] [address] OXYGEN SOURCE Vent Normal [facility] Comment on above: Performed By: #### C LANA, 53564-6, , CBCA #### [facility] ([id number]) [address] [place] [address] PCO2 41.7 MMHG Normal 35-45 [facility] Comment on above: Performed By: #### C LANA, 91663-6, , CBCA #### [facility] ([id number]) [address] [place] [address] pH (Bld) 7.373 [pH] Normal 7.350-7.45 0 [facility] Comment on above: Performed By: #### C LANA, 63496-4, , CBCA #### [facility] ([id number]) [address] [place] [address] SAMPLE SITE LRad Normal [facility] Comment on above: Performed By: #### C LANA, 50458-7, , CBCA #### [facility] ([id number]) [address] [place] [address] SAMPLE TYPE ARTERIAL Normal [facility] Comment on above: Performed By: #### C LANA, 69213-4, , CBCA #### [facility] ([id number]) [address] [place] [address] CBC AND AUTO DIFFon 04-18-20 23 ABSOLUTE BASOPHIL 0.0 X10E9/L Normal 0.0-0.2 [facility] Comment on above: Performed By: #### C LANA, 58153-7, , CBCA #### [facility] ([id number]) [address] [place] [address] ABSOLUTE NEUTROPHIL 2.5 X10E9/L Normal 1.5-6.6 [facility] Comment on above: Performed By: #### C LANA, 98623-5, , CBCA #### [facility] ([id number]) [address] [address] Anisocytosis Ql (Bld) 2+ Abnormal NONE [facility] Comment on above: Performed By: #### C LANA, 07598-2, , CBCA #### [facility] ([id number]) [address] [address] Basophils/100 WBC (Bld) 0.2 % Normal [facility] Comment on above: Performed By: #### C LANA, 76441-9, , CBCA #### [facility] ([id number]) [address] [address] Eosinophils (Bld) [#/Vol] 0.0 10*3/uL Normal 0.0-0.4 [facility] Comment on above: Performed By: #### C LANA, 97103-3, , CBCA #### [facility] ([id number]) [address] [facility] [place] [address] Eosinophils/100 WBC (Bld) 0.1 % Normal [facility] Comment on above: Performed By: #### C LANA, 08935-4, , CBCA #### [facility] ([id number]) [address] [place] [address] Erythrocyte distribution width (RBC) [Ratio] 22.1 % High 11.5-15.0 [facility] Comment on above: Performed By: #### C LANA, 74155-4, , CBCA #### [facility] ([id number]) [address] [place] [address] Hematocrit (Bld) [Volume fraction] 31.1 % Low 35-47 [facility] Comment on above: Performed By: #### C LANA, 61788-6, , CBCA #### [facility] ([id number]) [address] [place] [address] Hemoglobin (Bld) [Mass/Vol] 9.9 g/dL Low 11.7-15.5 [facility] Comment on above: Performed By: #### C LANA, 81743-9, , CBCA #### [facility] ([id number]) [address] [facility] [place] [address] Lymphocytes (Bld) [#/Vol] 1.2 10*3/uL Normal 1.0-3.5 [facility] Comment on above: Performed By: #### C LANA, 11975-7, , CBCA #### [facility] ([id number]) [address] [place] [address] Lymphocytes/100 WBC (Bld) 30.6 % Normal [facility] Comment on above: Performed By: #### C LANA, 66985-2, , CBCA #### [facility] ([id number]) [address] [place] [address] MCH (RBC) [Entitic mass] 27.0 pg Normal 27-34 [facility] Comment on above: Performed By: #### C LANA, 08424-4, , CBCA #### [facility] ([id number]) [address] [place] [address] MCHC (RBC) [Mass/Vol] 31.8 g/dL Low 32-36 [facility] Comment on above: Performed By: #### C LANA, 30346-6, , CBCA #### [facility] ([id number]) [address] [place] [address] MCV (RBC) [Entitic vol] 85 fL Normal 80-100 [facility] Comment on above: Performed By: #### C LANA, 65675-4, , CBCA #### [facility] ([id number]) [address] [place] [address] Monocytes (Bld) [#/Vol] 0.3 10*3/uL Normal 0-0.9 [facility] Comment on above: Performed By: #### C MP, 21284-0, , CBCA #### [facility] ([id number]) [address] [place] [address] Monocytes/100 WBC (Bld) 7.4 % Normal [facility] Comment on above: Performed By: #### C MP, 27111-5, , CBCA #### [facility] ([id number]) [address] [address] Neutrophils/100 WBC (Bld) 61.7 % Normal [facility] Comment on above: Performed By: #### C LANA, 06382-2, , CBCA #### [facility] ([id number]) [address] [place] [address] Platelet mean volume (Bld) [Entitic vol] 7.5 fL Normal 7-12 [facility] Comment on above: Performed By: #### C LANA, 94218-1, , CBCA #### [facility] ([id number]) [address] [facility] [place] [address] Platelets (Bld) [#/Vol] 317 10*3/uL Normal 150-450 [facility] Comment on above: Performed By: #### C MP, 92191-4, , CBCA #### [facility] ([id number]) [address] [place] [address] RBC COUNT 3.65 X10E12/L Low 3.80-5.20 [facility] Comment on above: Performed By: #### C MP, 36342-2, , CBCA #### [facility] ([id number]) [address] [place] [address] WBC (Bld) [#/Vol] 4.0 10*3/uL Normal 4.0-11.0 [facility] Comment on above: Performed By: #### C LANA, 89702-9, , CBCA #### [facility] ([id number]) [address] [place] [address] COMPREHENSIVE METABOLIC PANE [facility] 04-18-2023 Albumin [Mass/Vol] 2.4 g/dL Low 3.2-5.3 [facility] Comment on above: Performed By: #### C LANA, 60153-5, , CBCA #### [facility] ([id number]) [address] [place] [address] ALP [Catalytic activity/Vol] 64 U/L Normal 39-130 [facility] Comment on above: Performed By: #### C LANA, 72076-6, , CBCA #### [facility] ([id number]) [address] [place] [address] ALT [Catalytic activity/Vol] 18 U/L Normal 0-31 [facility] Comment on above: Performed By: #### C LANA, 52006-3, , CBCA #### [facility] ([id number]) [address] [place] [address] Anion gap [Moles/Vol] 7 mmol/L Normal 5-15 [facility] Comment on above: Performed By: #### C LANA, 98706-9, , CBCA #### [facility] ([id number]) [address] [place] [address] AST [Catalytic activity/Vol] 20 U/L Normal 0-41 [facility] Comment on above: Performed By: #### C LANA, 68863-3, , CBCA #### [facility] ([id number]) [address] [place] [address] Bilirubin [Mass/Vol] 0.4 mg/dL Normal 0.3-1.2 [facility] Comment on above: Performed By: #### C LANA, 84515-2, , CBCA #### [facility] ([id number]) [address] [place] [address] Calcium [Mass/Vol] 7.0 mg/dL Low 8.5-10.5 [facility] Comment on above: Performed By: #### C LANA, 92971-3, 76360-9, CBCA #### [facility] ([id number]) [address] [place] [address] Chloride [Moles/Vol] 114 mmol/L High 98-109 [facility] Comment on above: Performed By: #### C LANA, 54103-5, , CBCA #### [facility] ([id number]) [address] [place] [address] CO2 [Moles/Vol] 25 mmol/L Normal 22-32 [facility] Comment on above: Performed By: #### C LANA, 11662-2, , CBCA #### [facility] ([id number]) [address] [place] [address] Creatinine [Mass/Vol] 0.83 mg/dL Normal 0.40-1.00 [facility] Comment on above: Result Comment: METH OD TRACEABLE TO IDMS STANDARD Performed By: #### C LANA, 07796-6, , CBCA #### [facility] ([id number]) [address] [place] [address] GFR/1.73 sq M.predicted among non-blacks MDRD (S/P/Bld) [Vol rate/Area] 81 mL/min/{1.73_m2} Normal >59 [facility] Comment on above: Result Comment: Reported eGFR is based on the CKD-EPI 2020 equation that does not use a race coefficient. Performed By: #### C MP, 08254-0, , CBCA #### [facility] ([id number]) [address] [place] [address] Glucose [Mass/Vol] 100 mg/dL High 65-99 [facility] Comment on above: Performed By: #### C LANA, 00367-6, , CBCA #### [facility] ([id number]) [address] [place] [address] Potassium [Moles/Vol] 4.7 mmol/L Normal 3.5-5.0 [facility] Comment on above: Performed By: #### C LANA, 41663-5, 27033-0, CBCA #### [facility] ([id number]) [address] [place] [address] Protein [Mass/Vol] 6.4 g/dL Normal 6.0-8.0 [facility] Comment on above: Performed By: #### C LANA, 23665-1, , CBCA #### [facility] ([id number]) [address] [place] [address] Sodium [Moles/Vol] 146 mmol/L Normal 134-146 [facility] Comment on above: Performed By: #### Javid SCHWARTZ, 99799-6, , CBCA #### [facility] ([id number]) [address] [place] [address] Urea nitrogen [Mass/Vol] 12 mg/dL Normal - [facility] Comment on above: Performed By: #### Javid SCHWARTZ, 83741-0, , CBCA #### [facility] ([id number]) [address] [place] [address] Calcium.ionized (Bld) [Moles /Vol]on 04-18-2023 PORTABLE ICA 4.8 mg/dL Normal 4.5-5.3 [facility] Comment on above: Performed By: #### C LANA, 05335-9, , CBCA #### [facility] ([id number]) [address] [place] [address] Glucose Glucometer (BldC) [M ass/Vol]on 04-18-2023 Glucose [Mass/Vol] 126 mg/dL High 65-99 [facility] Glucose [Mass/Vol] 94 mg/dL Normal 65-99 [facility] Glucose [Mass/Vol] 104 mg/dL High 65-99 [facility] XR CHEST 1 VWon 04-18-2023 XR [...] measurable pneumothorax. Right costophrenic angle excluded from [id number]. Impression: 1. Persistent effusions, with or without underlying pneumonia. 2. Looped configuration left IJ catheter and correlate with function. Finalized by Victor Hugo Gustafson MD on 04/18/2023 5:44 AM Normal [facility] ARTERIAL BLOOD GASon 023 RAVINDRA'S TEST Pass Normal [facility] Comment on above: Performed By: #### C LANA, 11692-8, , CBCA #### [facility] ([id number]) [address] [facility] [place] [address] BASE,DEFICIT 1.0 MMOL/L Normal 0.0-2.0 [facility] Comment on above: Performed By: #### C LANA, 08883-5, 89962-0, CBCA #### [facility] ([id number]) [address] [place] [address] Body temperature 98.6 [degF] Normal 37.0 [facility] Comment on above: Performed By: #### C LANA, 17796-2, 07983-5, CBCA #### [facility] ([id number]) [address] [place] [address] HCO3 (Bld) [Moles/Vol] 24.3 mmol/L Normal 22-26 [facility] Comment on above: Performed By: #### C LANA, 66400-4, 97283-9, CBCA #### [facility] ([id number]) [address] [place] [address] INSP. O2 CONC. 50 % Normal [facility] Comment on above: Performed By: #### C LANA, 95423-9, 25719-2, CBCA #### [facility] ([id number]) [address] [place] [address] Oxygen (Bld) [Partial pressure] 73 mm[Hg] Low 80-100 [facility] Comment on above: Performed By: #### C LANA, 14511-3, , CBCA #### [facility] ([id number]) [address] [place] [address] Oxygen saturation in Blood 94.0 % Normal >90 [facility] Comment on above: Performed By: #### C LANA, 40782-6, , CBCA #### [facility] ([id number]) [address] [place] [address] OXYGEN SOURCE Vent [facility] Comment on above: Performed By: #### C LANA, 78825-7, , CBCA #### [facility] ([id number]) [address] [place] [address] PCO2 44.9 MMHG Normal 35-45 [facility] Comment on above: Performed By: #### C LANA, 08198-4, , CBCA #### [facility] ([id number]) [address] [place] [address] pH (Bld) 7.342 [pH] Low 7.350-7.45 0 [facility] Comment on above: Performed By: #### C LANA, 98040-1, , CBCA #### [facility] ([id number]) [address] [place] [address] SAMPLE SITE RRad Normal [facility] Comment on above: Performed By: #### C LANA, 27999-6, 87398-2, CBCA #### [facility] ([id number]) [address] [place] [address] SAMPLE TYPE ARTERIAL Normal [facility] Comment on above: Performed By: #### C LANA, 03372-7, , CBCA #### [facility] ([id number]) [address] [place] [address] BASIC METABOLIC PANLon 04-17 Anion gap [Moles/Vol] 8 mmol/L Normal 5-15 [facility] Comment on above: Performed By: #### C LANA, 43312-5, , CBCA #### [facility] ([id number]) [address] [place] [address] Calcium [Mass/Vol] 8.3 mg/dL Low 8.5-10.5 [facility] Comment on above: Performed By: #### C LANA, 56085-2, , CBCA #### [facility] ([id number]) [address] [place] [address] Chloride [Moles/Vol] 114 mmol/L High 98-109 [facility] Comment on above: Performed By: #### C LANA, 40854-8, , CBCA #### [facility] ([id number]) [address] [place] [address] CO2 [Moles/Vol] 23 mmol/L Normal 22-32 [facility] Comment on above: Performed By: #### C LANA, 74969-1, , CBCA #### [facility] ([id number]) [address] [place] [address] Creatinine [Mass/Vol] 0.96 mg/dL Normal 0.40-1.00 [facility] Comment on above: Result Comment: METH OD TRACEABLE TO IDMS STANDARD Performed By: #### C LANA, 21125-3, , CBCA #### [facility] ([id number]) [address] [place] [address] GFR/1.73 sq M.predicted among non-blacks MDRD (S/P/Bld) [Vol rate/Area] 68 mL/min/{1.73_m2} Normal >59 [facility] Comment on above: Result Comment: Reported eGFR is based on the CKD-EPI 2020 equation that does not use a race coefficient. Performed By: #### C LANA, 59753-2, , CBCA #### [facility] ([id number]) [address] [place] [address] Glucose [Mass/Vol] 164 mg/dL High 65-99 [facility] Comment on above: Performed By: #### C LANA, 96331-8, , CBCA #### [facility] ([id number]) [address] [place] [address] Potassium [Moles/Vol] 4.3 mmol/L Normal 3.5-5.0 [facility] Comment on above: Performed By: #### C LANA, 65300-5, , CBCA #### [facility] ([id number]) [address] [place] [address] Sodium [Moles/Vol] 145 mmol/L Normal 134-146 [facility] Comment on above: Performed By: #### C LANA, 71408-9, , CBCA #### [facility] ([id number]) [address] [place] [address] Urea nitrogen [Mass/Vol] 11 mg/dL Normal 5-23 [facility] Comment on above: Performed By: #### C LANA, 39056-8, , CBCA #### [facility] ([id number]) [address] [place] [address] CBC AND AUTO DIFFon 04-17- 23 ABSOLUTE BASOPHIL 0.0 X10E9/L Normal 0.0-0.2 [facility] Comment on above: Performed By: #### C LANA, 23693-7, , CBCA #### [facility] ([id number]) [address] [place] [address] ABSOLUTE NEUTROPHIL 2.3 X10E9/L Normal 1.5-6.6 [facility] Comment on above: Performed By: #### C LANA, 09375-3, , CBCA #### [facility] ([id number]) [address] [facility] [place] [address] Anisocytosis Ql (Bld) 2+ Abnormal NONE [facility] Comment on above: Performed By: #### C LANA, 63162-6, , CBCA #### [facility] ([id number]) [address] [facility] [place] [address] Basophils/100 WBC (Bld) 0.3 % Normal [facility] Comment on above: Performed By: #### C LANA, 67831-0, , CBCA #### [facility] ([id number]) [address] [facility] [place] [address] Eosinophils (Bld) [#/Vol] 0.0 10*3/uL Normal 0.0-0.4 [facility] Comment on above: Performed By: #### C LANA, 42753-7, , CBCA #### [facility] ([id number]) [address] [facility] [place] [address] Eosinophils/100 WBC (Bld) 0.2 % Normal [facility] Comment on above: Performed By: #### C LANA, 26141-3, , CBCA #### [facility] ([id number]) [address] [facility] [place] [address] Erythrocyte distribution width (RBC) [Ratio] 22.2 % High 11.5-15.0 [facility] Comment on above: Performed By: #### C LANA, 32639-9, , CBCA #### [facility] ([id number]) [address] [facility] [place] [address] Hematocrit (Bld) [Volume fraction] 30.6 % Low 35-47 [facility] Comment on above: Performed By: #### C LANA, 60464-9, , CBCA #### [facility] ([id number]) [address] [place] [address] Hemoglobin (Bld) [Mass/Vol] 9.9 g/dL Low 11.7-15.5 [facility] Comment on above: Performed By: #### C LANA, 91334-8, , CBCA #### [facility] ([id number]) [address] [address] Lymphocytes (Bld) [#/Vol] 1.0 10*3/uL Normal 1.0-3.5 [facility] Comment on above: Performed By: #### C LANA, 27606-2, , CBCA #### [facility] ([id number]) [address] [address] Lymphocytes/100 WBC (Bld) 29.2 % Normal [facility] Comment on above: Performed By: #### Javid SCHWARTZ, 63407-9, , CBCA #### [facility] ([id number]) [address] [place] [address] MCH (RBC) [Entitic mass] 27.8 pg Normal 27-34 [facility] Comment on above: Performed By: #### C LANA, 05708-6, , CBCA #### [facility] ([id number]) [address] [place] [address] MCHC (RBC) [Mass/Vol] 32.5 g/dL Normal 32-36 [facility] Comment on above: Performed By: #### C LANA, 89302-9, , CBCA #### [facility] ([id number]) [address] [place] [address] MCV (RBC) [Entitic vol] 86 fL Normal 80-100 [facility] Comment on above: Performed By: #### C LANA, 41732-3, , CBCA #### [facility] ([id number]) [address] [place] [address] Monocytes (Bld) [#/Vol] 0.2 10*3/uL Normal 0-0.9 [facility] Comment on above: Performed By: #### C LANA, 90068-8, , CBCA #### [facility] ([id number]) [address] [facility] [place] [address] Monocytes/100 WBC (Bld) 5.8 % Normal [facility] Comment on above: Performed By: #### C LANA, 01692-6, , CBCA #### [facility] ([id number]) [address] [facility] [place] [address] Neutrophils/100 WBC (Bld) 64.5 % Normal [facility] Comment on above: Performed By: #### C LANA, 53524-5, , CBCA #### [facility] ([id number]) [address] [facility] [place] [address] Platelet mean volume (Bld) [Entitic vol] 7.7 fL Normal 7-12 [facility] Comment on above: Performed By: #### C LANA, 90261-5, , CBCA #### [facility] ([id number]) [address] [facility] [place] [address] Platelets (Bld) [#/Vol] 295 10*3/uL Normal 150-450 [facility] Comment on above: Performed By: #### C LANA, 01176-7, , CBCA #### [facility] ([id number]) [address] [place] [address] RBC COUNT 3.57 X10E12/L Low 3.80-5.20 [facility] Comment on above: Performed By: #### C LANA, 75793-0, , CBCA #### [facility] ([id number]) [address] [facility] [place] [address] WBC (Bld) [#/Vol] 3.6 10*3/uL Low 4.0-11.0 [facility] Comment on above: Performed By: #### C LANA, 57110-0, , CBCA #### [facility] ([id number]) [address] [facility] [place] [address] ABSOLUTE BASOPHIL 0.0 X10E9/L Normal 0.0-0.2 [facility] Comment on above: Performed By: #### C LANA, 62499-4, , CBCA #### [facility] ([id number]) [address] [place] [address] ABSOLUTE NEUTROPHIL 2.1 X10E9/L Normal 1.5-6.6 [facility] Comment on above: Performed By: #### C , 51507-3, , CBCA #### [facility] ([id number]) [address] [place] [address] Anisocytosis Ql (Bld) 2+ Abnormal NONE [facility] Comment on above: Performed By: #### C , 19105-2, , CBCA #### [facility] ([id number]) [address] [address] Basophils/100 WBC (Bld) 0.3 % Normal [facility] Comment on above: Performed By: #### C , 57053-0, , CBCA #### [facility] ([id number]) [address] [facility] [place] [address] Eosinophils (Bld) [#/Vol] 0.0 10*3/uL Normal 0.0-0.4 [facility] Comment on above: Performed By: #### C , 96952-9, , CBCA #### [facility] ([id number]) [address] [place] [address] Eosinophils/100 WBC (Bld) 0.1 % Normal [facility] Comment on above: Performed By: #### C LANA, 83415-5, , CBCA #### [facility] ([id number]) [address] [place] [address] Erythrocyte distribution width (RBC) [Ratio] 22.0 % High 11.5-15.0 [facility] [facility] Comment on above: Performed By: #### C LANA, 08934-1, , CBCA #### [facility] ([id number]) [address] [place] [address] Hematocrit (Bld) [Volume fraction] 31.4 % Low 35-47 [facility] Comment on above: Performed By: #### C LANA, 44898-6, , CBCA #### [facility] ([id number]) [address] [facility] [place] [address] Hemoglobin (Bld) [Mass/Vol] 10.2 g/dL Low 11.7-15.5 [facility] Comment on above: Performed By: #### C LANA, 27119-7, , CBCA #### [facility] ([id number]) [address] [address] Lymphocytes (Bld) [#/Vol] 0.9 10*3/uL Low 1.0-3.5 [facility] Comment on above: Performed By: #### C LANA, 84917-0, , CBCA #### [facility] ([id number]) [address] [facility] [place] [address] Lymphocytes/100 WBC (Bld) 28.7 % Normal [facility] Comment on above: Performed By: #### C LANA, 93933-9, , CBCA #### [facility] ([id number]) [address] [place] [address] MCH (RBC) [Entitic mass] 27.4 pg Normal 27-34 [facility] Comment on above: Performed By: #### C LANA, 77925-9, , CBCA #### [facility] ([id number]) [address] [place] [address] MCHC (RBC) [Mass/Vol] 32.4 g/dL Normal 32-36 [facility] Comment on above: Performed By: #### C MP, 94163-3, 49003-9, CBCA #### [facility] ([id number]) [address] [place] [address] MCV (RBC) [Entitic vol] 84 fL Normal 80-100 [facility] Comment on above: Performed By: #### C LANA, 22401-9, 92918-4, CBCA #### [facility] ([id number]) [address] [place] [address] Monocytes (Bld) [#/Vol] 0.2 10*3/uL Normal 0-0.9 [facility] Comment on above: Performed By: #### C LANA, 68540-4, , CBCA #### [facility] ([id number]) [address] [place] [address] Monocytes/100 WBC (Bld) 6.9 % Normal [facility] Comment on above: Performed By: #### C LANA, 18927-5, , CBCA #### [facility] ([id number]) [address] [facility] [place] [address] Neutrophils/100 WBC (Bld) 64.0 % Normal [facility] Comment on above: Performed By: #### C LANA, 53846-3, , CBCA #### [facility] ([id number]) [address] [place] [address] Platelet mean volume (Bld) [Entitic vol] 7.8 fL Normal 7-12 [facility] Comment on above: Performed By: #### C LANA, 42751-8, , CBCA #### [facility] ([id number]) [address] [place] [address] Platelets (Bld) [#/Vol] 301 10*3/uL Normal 150-450 [facility] Comment on above: Performed By: #### C LANA, 27451-4, 49946-6, CBCA #### [facility] ([id number]) [address] [place] [address] RBC COUNT 3.72 X10E12/L Low 3.80-5.20 [facility] Comment on above: Performed By: #### C LANA, 87825-1, , CBCA #### [facility] ([id number]) [address] [place] [address] WBC (Bld) [#/Vol] 3.3 10*3/uL Low 4.0-11.0 [facility] Comment on above: Performed By: #### C LANA, 42081-0, , CBCA #### [facility] ([id number]) [address] [place] [address] COMPREHENSIVE METABOLIC PANE Meek 04-17-2023 Albumin [Mass/Vol] 2.5 g/dL Low 3.2-5.3 [facility] Comment on above: Performed By: #### C LANA, 59827-5, , CBCA #### [facility] ([id number]) [address] [place] [address] ALP [Catalytic activity/Vol] 68 U/L Normal 39-130 [facility] Comment on above: Performed By: #### C LANA, 68550-8, , CBCA #### [facility] ([id number]) [address] [place] [address] ALT [Catalytic activity/Vol] 21 U/L Normal 0-31 [facility] Comment on above: Performed By: #### C LANA, 43693-5, , CBCA #### [facility] ([id number]) [address] [place] [address] Anion gap [Moles/Vol] 5 mmol/L Normal 5-15 [facility] Comment on above: Performed By: #### C LANA, 03213-4, , CBCA #### [facility] ([id number]) [address] [place] [address] AST [Catalytic activity/Vol] 26 U/L Normal 0-41 [facility] Comment on above: Performed By: #### C LANA, 93845-4, , CBCA #### [facility] ([id number]) [address] [place] [address] Bilirubin [Mass/Vol] 0.5 mg/dL Normal 0.3-1.2 [facility] Comment on above: Performed By: #### C LANA, 82628-6, , CBCA #### [facility] ([id number]) [address] [place] [address] Calcium [Mass/Vol] 8.2 mg/dL Low 8.5-10.5 [facility] Comment on above: Performed By: #### C LANA, 20792-2, , CBCA #### [facility] ([id number]) [address] [place] [address] Chloride [Moles/Vol] 116 mmol/L High 98-109 [facility] Comment on above: Performed By: #### C LANA, 98312-7, , CBCA #### [facility] ([id number]) [address] [place] [address] CO2 [Moles/Vol] 25 mmol/L Normal 22-32 [facility] Comment on above: Performed By: #### C LANA, 62654-5, , CBCA #### [facility] ([id number]) [address] [place] [address] Creatinine [Mass/Vol] 0.92 mg/dL Normal 0.40-1.00 [facility] Comment on above: Result Comment: METH OD TRACEABLE TO IDMS STANDARD Performed By: #### C LANA, 71989-5, , CBCA #### [facility] ([id number]) [address] [place] [address] GFR/1.73 sq M.predicted among non-blacks MDRD (S/P/Bld) [Vol rate/Area] 71 mL/min/{1.73_m2} Normal >59 [facility] Comment on above: Result Comment: Reported eGFR is based on the CKD-EPI 2020 equation that does not use a race coefficient. Performed By: #### C LANA, 20955-7, , CBCA #### [facility] ([id number]) [address] [place] [address] Glucose [Mass/Vol] 109 mg/dL High 65-99 [facility] Comment on above: Performed By: #### C LANA, 98596-9, , CBCA #### [facility] ([id number]) [address] [place] [address] Potassium [Moles/Vol] 3.6 mmol/L Normal 3.5-5.0 [facility] Comment on above: Performed By: #### C LANA, 78139-3, , CBCA #### [facility] ([id number]) [address] [place] [address] Protein [Mass/Vol] 6.6 g/dL Normal 6.0-8.0 [facility] Comment on above: Performed By: #### C LANA, 50665-0, , CBCA #### [facility] ([id number]) [address] [place] [address] Sodium [Moles/Vol] 146 mmol/L Normal 134-146 [facility] Comment on above: Performed By: #### Javid SCHWARTZ, 98431-2, , CBCA #### [facility] ([id number]) [address] [place] [address] Urea nitrogen [Mass/Vol] 10 mg/dL Normal 5-23 [facility] Comment on above: Performed By: #### C LANA, 89386-6, , CBCA #### [facility] ([id number]) [address] [place] [address] Calcium.ionized (Bld) [Moles /Vol]on 04-17-2023 [facility] ICA 4.8 mg/dL Normal 4.5-5.3 [facility] Comment on above: Performed By: #### C LANA, 35266-7, , CBCA #### [facility] ([id number]) [address] [place] [address] Glucose Glucometer (BldC) [M ass/Vol]on 04-17-2023 Glucose [Mass/Vol] 111 mg/dL High 65-99 [facility] Glucose [Mass/Vol] 105 mg/dL High 65-[address] [facility] MAGNESIUMon 04-17-2023 Magnesium [Mass/Vol] 2.4 mg/dL Normal 1.8-2.6 [facility] Comment on above: Performed By: #### C LANA, 86343-4, , CBCA #### [facility] ([id number]) [address] [place] [address] Magnesium [Mass/Vol] 2.5 mg/dL Normal 1.8-2.6 [facility] Comment on above: Performed By: #### C LANA, 17550-5, , CBCA #### [facility] ([id number]) [address] [place] [address] PHOSPHORUSon 04-17-2023 Phosphate [Mass/Vol] 2.5 mg/dL Normal 2.4-4.9 [facility] Comment on above: Performed By: #### Javid SCHWARTZ, 04082-8, , CBCA #### [facility] ([id number]) [address] [place] [address] POTASSIUMon 04-17-2023 Potassium [Moles/Vol] 3.9 mmol/L Normal 3.5-5.0 [facility] Comment on above: Performed By: #### C LANA, 91682-5, , CBCA #### [facility] ([id number]) [address] [place] [address] XR CHEST 1 VWon 04-17-2023 XR CHEST 1 VW XR CHEST 1 VW CHEST 1 VIEW HISTORY: Acute respiratory failure COMPARISON: 04/16/2023 FINDINGS: Stable lines and tubes. Mild pulmonary vascular congestion/edema. Bibasilar opacities may represent atelectasis or pneumonia, improved. No pleural effusions or pneumothorax. IMPRESSION: * Improved bibasilar opacities. No other significant change. Finalized by Dharmesh Graves MD on 04/17/2023 5:44 AM Normal [facility] ARTERIAL BLOOD GASon 023 RAVINDRA'S TEST Pass Normal [facility] Comment on above: Performed By: #### C LANA, 49552-9, , CBCA #### [facility] ([id number]) [address] [facility] [place] [address] BASE,DEFICIT 3.0 MMOL/L High 0.0-2.0 [facility] Comment on above: Performed By: #### C LANA, 37373-1, , CBCA #### [facility] ([id number]) [address] [facility] [place] [address] Body temperature 98.6 [degF] Normal 37.0 [facility] Comment on above: Performed By: #### C LANA, 74749-1, , CBCA #### [facility] ([id number]) [address] [facility] [place] [address] HCO3 (Bld) [Moles/Vol] 22.9 mmol/L Normal 22-26 [facility] Comment on above: Performed By: #### C LANA, 39903-7, , CBCA #### [facility] ([id number]) [address] [facility] [place] [address] INSP. O2 CONC. 60 % Normal [facility] Comment on above: Performed By: #### C LANA, 75595-9, , CBCA #### [facility] ([id number]) [address] [place] [address] Oxygen (Bld) [Partial pressure] 76 mm[Hg] Low 80-100 [facility] Comment on above: Performed By: #### C LANA, 51490-5, , CBCA #### [facility] ([id number]) [address] [place] [address] Oxygen saturation in Blood 94.0 % Normal >90 [facility] Comment on above: Performed By: #### C LANA, 66770-0, , CBCA #### [facility] ([id number]) [address] [place] [address] OXYGEN SOURCE Vent Normal [facility] Comment on above: Performed By: #### C LANA, 41222-2, , CBCA #### [facility] ([id number]) [address] [place] [address] PCO2 42.7 MMHG Normal 35-45 [facility] Comment on above: Performed By: #### C LANA, 31789-7, , CBCA #### [facility] ([id number]) [address] [place] [address] pH (Bld) 7.336 [pH] Low 7.350-7.45 0 [facility] Comment on above: Performed By: #### C LANA, 39807-2, , CBCA #### [facility] ([id number]) [address] [place] [address] SAMPLE SITE LRad Normal [facility] Comment on above: Performed By: #### C LANA, 09080-1, , CBCA #### [facility] ([id number]) [address] [place] [address] SAMPLE TYPE ARTERIAL Normal [facility] Comment on above: Performed By: #### C LANA, 48232-5, , CBCA #### [facility] ([id number]) [address] [place] [address] CBC AND AUTO DIFFon 12-21-20 23 ABSOLUTE BASOPHIL 0.0 X10E9/L Normal 0.0-0.2 [facility] Comment on above: Performed By: #### Javid SCHWARTZ, 34315-5, , CBCA #### [facility] ([id number]) [address] [facility] [place] [address] ABSOLUTE NEUTROPHIL 3.2 X10E9/L Normal 1.5-6.6 [facility] Comment on above: Performed By: #### C LANA, 14824-0, , CBCA #### [facility] ([id number]) [address] [place] [address] Anisocytosis Ql (Bld) 2+ Abnormal NONE [facility] Comment on above: Performed By: #### C , 01281-8, , CBCA #### [facility] ([id number]) [address] [address] Basophils/100 WBC (Bld) 0.2 % Normal [facility] Comment on above: Performed By: #### C LANA, 27555-8, , CBCA #### [facility] ([id number]) [address] [place] [address] Eosinophils (Bld) [#/Vol] 0.0 10*3/uL Normal 0.0-0.4 [facility] Comment on above: Performed By: #### C LANA, 68907-6, , CBCA #### [facility] ([id number]) [address] [place] [address] Eosinophils/100 WBC (Bld) 0.0 % Normal [facility] Comment on above: Performed By: #### C LANA, 80480-5, , CBCA #### [facility] ([id number]) [address] [place] [address] Erythrocyte distribution width (RBC) [Ratio] 22.0 % High 11.5-15.0 [facility] Comment on above: Performed By: #### C LANA, 36057-3, , CBCA #### [facility] ([id number]) [address] [place] [address] Hematocrit (Bld) [Volume fraction] 27.6 % Low 35-47 [facility] Comment on above: Performed By: #### C LANA, 25254-1, , CBCA #### [facility] ([id number]) [address] [place] [address] Hemoglobin (Bld) [Mass/Vol] 8.8 g/dL Low 11.7-15.5 [facility] Comment on above: Performed By: #### C LANA, 96840-9, , CBCA #### [facility] ([id number]) [address] [facility] [place] [address] Lymphocytes (Bld) [#/Vol] 0.7 10*3/uL Low 1.0-3.5 [facility] Comment on above: Performed By: #### C LANA, 03569-7, , CBCA #### [facility] ([id number]) [address] [place] [address] Lymphocytes/100 WBC (Bld) 17.8 % Normal [facility] Comment on above: Performed By: #### C LANA, 67900-9, , CBCA #### [facility] ([id number]) [address] [place] [address] MCH (RBC) [Entitic mass] 27.3 pg Normal 27-34 [facility] Comment on above: Performed By: #### Javid SCHWARTZ, 21962-8, , CBCA #### [facility] ([id number]) [address] [place] [address] MCHC (RBC) [Mass/Vol] 31.9 g/dL Low 32-36 [facility] Comment on above: Performed By: #### Javid SCHWARTZ, 83251-5, , CBCA #### [facility] ([id number]) [address] [place] [address] MCV (RBC) [Entitic vol] 86 fL Normal 80-100 [facility] Comment on above: Performed By: #### Javid SCHWARTZ, 40720-3, , CBCA #### [facility] ([id number]) [address] [facility] [place] [address] Monocytes (Bld) [#/Vol] 0.2 10*3/uL Normal 0-0.9 [facility] Comment on above: Performed By: #### C MP, 74087-2, , CBCA #### [facility] ([id number]) [address] [place] [address] Monocytes/100 WBC (Bld) 4.7 % Normal [facility] Comment on above: Performed By: #### C LANA, 41203-6, , CBCA #### [facility] ([id number]) [address] [facility] [place] [address] Neutrophils/100 WBC (Bld) 77.3 % Normal [facility] Comment on above: Performed By: #### C LANA, 04043-7, , CBCA #### [facility] ([id number]) [address] [facility] [place] [address] Platelet mean volume (Bld) [Entitic vol] 7.6 fL Normal 7-12 [facility] Comment on above: Performed By: #### C LANA, 29652-0, , CBCA #### [facility] ([id number]) [address] [facility] [place] [address] Platelets (Bld) [#/Vol] 248 10*3/uL Normal 150-450 [facility] Comment on above: Performed By: #### C LANA, 35241-1, , CBCA #### [facility] ([id number]) [address] [facility] [place] [address] RBC COUNT 3.22 X10E12/L Low 3.80-5.20 [facility] Comment on above: Performed By: #### C LANA, 45039-0, , CBCA #### [facility] ([id number]) [address] [address] WBC (Bld) [#/Vol] 4.2 10*3/uL Normal 4.0-11.0 [facility] Comment on above: Performed By: #### C LANA, 56746-4, , CBCA #### [facility] ([id number]) [address] [place] [address] COMPREHENSIVE METABOLIC PANE [facility] 04-16-2023 Albumin [Mass/Vol] 2.4 g/dL Low 3.2-5.3 [facility] Comment on above: Performed By: #### C LANA, 07945-2, , CBCA #### [facility] ([id number]) [address] [place] [address] ALP [Catalytic activity/Vol] 61 U/L Normal 39-130 [facility] Comment on above: Performed By: #### C LANA, 16360-9, , CBCA #### [facility] ([id number]) [address] [place] [address] ALT [Catalytic activity/Vol] 20 U/L Normal 0-31 [facility] Comment on above: Performed By: #### C LANA, 74112-1, , CBCA #### [facility] ([id number]) [address] [place] [address] Anion gap [Moles/Vol] 6 mmol/L Normal 5-15 [facility] Comment on above: Performed By: #### C LANA, 57085-7, , CBCA #### [facility] ([id number]) [address] [place] [address] AST [Catalytic activity/Vol] 25 U/L Normal 0-41 [facility] Comment on above: Performed By: #### C LANA, 86556-8, , CBCA #### [facility] ([id number]) [address] [place] [address] Bilirubin [Mass/Vol] 0.6 mg/dL Normal 0.3-1.2 [facility] Comment on above: Performed By: #### C LANA, 76011-7, , CBCA #### [facility] ([id number]) [address] [place] [address] Calcium [Mass/Vol] 8.2 mg/dL Low 8.5-10.5 [facility] Comment on above: Performed By: #### C , 61549-8, 33267-7, CBCA #### [facility] ([id number]) [address] [place] [address] Chloride [Moles/Vol] 115 mmol/L High 98-109 [facility] Comment on above: Performed By: #### C LANA, 16153-5, , CBCA #### [facility] ([id number]) [address] [place] [address] CO2 [Moles/Vol] 24 mmol/L Normal 22-32 [facility] Comment on above: Performed By: #### C LANA, 40185-6, , CBCA #### [facility] ([id number]) [address] [place] [address] Creatinine [Mass/Vol] 1.19 mg/dL High 0.40-1.00 [facility] Comment on above: Result Comment: METH OD TRACEABLE TO IDMS STANDARD Performed By: #### C LANA, 91896-3, , CBCA #### [facility] ([id number]) [address] [place] [address] GFR/1.73 sq M.predicted among non-blacks MDRD (S/P/Bld) [Vol rate/Area] 52 mL/min/{1.73_m2} Low >59 [facility] Comment on above: Result Comment: Reported eGFR is based on the CKD-EPI 2020 equation that does not use a race coefficient. Performed By: #### C MP, 25789-9, 48246-6, CBCA #### [facility] ([id number]) [address] [place] [address] Glucose [Mass/Vol] 95 mg/dL Normal 65-99 [facility] Comment on above: Performed By: #### C LANA, 54347-2, , CBCA #### [facility] ([id number]) [address] [place] [address] Potassium [Moles/Vol] 3.7 mmol/L Normal 3.5-5.0 [facility] Comment on above: Performed By: #### C LANA, 94493-8, , CBCA #### [facility] ([id number]) [address] [place] [address] Protein [Mass/Vol] 6.0 g/dL Normal 6.0-8.0 [facility] Comment on above: Performed By: #### C LANA, 25383-5, , CBCA #### [facility] ([id number]) [address] [place] [address] Sodium [Moles/Vol] 145 mmol/L Normal 134-146 [facility] Comment on above: Performed By: #### C LANA, 12538-5, , CBCA #### [facility] ([id number]) [address] [place] [address] Urea nitrogen [Mass/Vol] 8 mg/dL Normal 5-23 [facility] Comment on above: Performed By: #### C LANA, 60381-8, , CBCA #### [facility] ([id number]) [address] [place] [address] Glucose Glucometer (BldC) [M ass/Vol]on 04-16-2023 Glucose [Mass/Vol] 137 mg/dL High 65-99 [facility] Glucose [Mass/Vol] 88 mg/dL Normal 65-99 [facility] Glucose [Mass/Vol] 102 mg/dL High 65-99 [facility] MAGNESIUMon 04-16-2023 Magnesium [Mass/Vol] 2.4 mg/dL Normal 1.8-2.6 [facility] Comment on above: Performed By: #### C LANA, 60771-6, 10416-9, CBCA #### [facility] ([id number]) [address] [facility] [place] [address] Magnesium [Mass/Vol] 1.9 mg/dL Normal 1.8-2.6 [facility] Comment on above: Performed By: #### C LANA, 25311-6, 18435-5, CBCA #### [facility] ([id number]) [address] [place] [address] POTASSIUMon 04-16-2023 Potassium [Moles/Vol] 4.1 mmol/L Normal 3.5-5.0 [facility] Comment on above: Performed By: #### C LANA, 45342-2, , CBCA #### [facility] ([id number]) [address] [facility] [place] [address] Potassium [Moles/Vol] 3.6 mmol/L Normal 3.5-5.0 [facility] Comment on above: Performed By: #### C LANA, 02286-0, , CBCA #### [facility] ([id number]) [address] [facility] [place] [address] TRIGLYCERIDEon 04-16-2023 Triglyceride [Mass/Vol] 262 mg/dL High 27-150 [facility] Comment on above: Performed By: #### C LANA, 90826-6, 39449-4, CBCA #### [facility] ([id number]) [address] [facility] [place] [address] XR CHEST 1 VWon 04-16-2023 XR CHEST [...] Aceves MD on 04/16/2023 5:28 AM Normal [facility] ARTERIAL BLOOD GASon 023 RAVINDRA'S TEST Pass Normal [facility] Comment on above: Performed By: #### A BG #### [facility] ([id number]) [address] [place] [address] BASE,DEFICIT 2.0 MMOL/L Normal 0.0-2.0 [facility] Comment on above: Performed By: #### A BG #### [facility] ([id number]) [address] [place] [address] Body temperature 98.6 [degF] Normal 37.0 [facility] Comment on above: Performed By: #### A BG #### [facility] ([id number]) [address] [place] [address] HCO3 (Bld) [Moles/Vol] 24.5 mmol/L Normal 22-26 [facility] Comment on above: Performed By: #### A BG #### [facility] ([id number]) [facility] [place] [address] INSP. O2 CONC. 60 % Normal [facility] Comment on above: Performed By: #### A BG #### [facility] ([id number]) [address] [place] [address] Oxygen (Bld) [Partial pressure] 79 mm[Hg] Low 80-100 [facility] Comment on above: Performed By: #### A BG #### [facility] ([id number]) [facility] [address] [address] Oxygen saturation in Blood 94.0 % Normal >90 [facility] Comment on above: Performed By: #### A BG #### [facility] ([id number]) [address] [place] [address] OXYGEN SOURCE Vent Normal [facility] Comment on above: Performed By: #### A BG #### [facility] ([id number]) [address] [place] [address] PCO2 47.9 MMHG High 35-45 [facility] Comment on above: Performed By: #### A BG #### [facility] ([id number]) [address] [place] [address] pH (Bld) 7.317 [pH] Low 7.350-7.45 0 [facility] Comment on above: Performed By: #### A BG #### [facility] ([id number]) [address] [place] [address] SAMPLE SITE LRad Normal [facility] Comment on above: Performed By: #### A BG #### [facility] ([id number]) [address] [place] [address] SAMPLE TYPE ARTERIAL Normal [facility] Comment on above: Performed By: #### A BG #### [facility] ([id number]) [address] [place] [address] BLOOD CULTUREon 04-15-2023 Bacteria identified Aer cx Nom (Bld) CULTURE RESULTS NO GROWTH 5 DAYS Normal [facility] Bacteria identified Aer cx Nom (Bld) CULTURE RESULTS NO GROWTH 5 DAYS Normal [facility] CBC AND AUTO DIFFon 04-15-20 ABSOLUTE BASOPHIL 0.0 X10E9/L Normal 0.0-0.2 [facility] Comment on above: Performed By: #### C LANA, 81604-6, , CBCA #### [facility] ([id number]) [address] [facility] [place] [address] ABSOLUTE NEUTROPHIL 1.9 X10E9/L Normal 1.5-6.6 [facility] Comment on above: Performed By: #### C LANA, 26146-4, , CBCA #### [facility] ([id number]) [address] [place] [address] Anisocytosis Ql (Bld) 2+ Abnormal NONE [facility] Comment on above: Performed By: #### C LANA, 18897-9, , CBCA #### [facility] ([id number]) [address] [place] [address] Basophils/100 WBC (Bld) 0.2 % Normal [facility] Comment on above: Performed By: #### C LANA, 56056-6, , CBCA #### [facility] ([id number]) [address] [facility] [place] [address] Eosinophils (Bld) [#/Vol] 0.0 10*3/uL Normal 0.0-0.4 [facility] Comment on above: Performed By: #### C LANA, 38063-7, , CBCA #### [facility] ([id number]) [address] [address] Eosinophils/100 WBC (Bld) 0.0 % Normal [facility] Comment on above: Performed By: #### C LANA, 87905-9, , CBCA #### [facility] ([id number]) [address] [place] [address] Erythrocyte distribution width (RBC) [Ratio] 22.0 % High 11.5-15.0 [facility] Comment on above: Performed By: #### C LANA, 84175-7, , CBCA #### [facility] ([id number]) [address] [place] [address] Hematocrit (Bld) [Volume fraction] 28.7 % Low 35-47 [facility] Comment on above: Performed By: #### C LANA, 36544-7, , CBCA #### [facility] ([id number]) [address] [place] [address] Hemoglobin (Bld) [Mass/Vol] 9.1 g/dL Low 11.7-15.5 [facility] Comment on above: Performed By: #### C LANA, 78389-6, , CBCA #### [facility] ([id number]) [address] [place] [address] Lymphocytes (Bld) [#/Vol] 0.6 10*3/uL Low 1.0-3.5 [facility] Comment on above: Performed By: #### C LANA, 42146-0, , CBCA #### [facility] ([id number]) [address] [facility] [place] [address] Lymphocytes/100 WBC (Bld) 22.8 % Normal [facility] Comment on above: Performed By: #### C LANA, 42222-8, , CBCA #### [facility] ([id number]) [address] [facility] [place] [address] MCH (RBC) [Entitic mass] 27.1 pg Normal 27-34 [facility] Comment on above: Performed By: #### C LANA, 74595-8, , CBCA #### [facility] ([id number]) [address] [facility] [place] [address] MCHC (RBC) [Mass/Vol] 31.8 g/dL Low 32-36 [facility] Comment on above: Performed By: #### C LANA, 05472-0, , CBCA #### [facility] ([id number]) [address] [place] [address] MCV (RBC) [Entitic vol] 85 fL Normal 80-100 [facility] Comment on above: Performed By: #### Javid SCHWARTZ, 09939-9, , CBCA #### [facility] ([id number]) [address] [facility] [place] [address] Monocytes (Bld) [#/Vol] 0.2 10*3/uL Normal 0-0.9 [facility] Comment on above: Performed By: #### C LANA, 05245-6, , CBCA #### [facility] ([id number]) [address] [place] [address] Monocytes/100 WBC (Bld) 7.7 % Normal [facility] Comment on above: Performed By: #### C LANA, 78880-6, , CBCA #### [facility] ([id number]) [address] [place] [address] Neutrophils/100 WBC (Bld) 69.3 % Normal [facility] Comment on above: Performed By: #### C LANA, 63929-6, , CBCA #### [facility] ([id number]) [address] [place] [address] Platelet mean volume (Bld) [Entitic vol] 7.5 fL Normal 7-12 [facility] Comment on above: Performed By: #### C LANA, 94946-7, , CBCA #### [facility] ([id number]) [address] [place] [address] Platelets (Bld) [#/Vol] 222 10*3/uL Normal 150-450 [facility] Comment on above: Performed By: #### C LANA, 80432-2, , CBCA #### [facility] ([id number]) [address] [place] [address] RBC COUNT 3.36 X10E12/L Low 3.80-5.20 [facility] Comment on above: Performed By: #### C LANA, 26144-3, , CBCA #### [facility] ([id number]) [address] [place] [address] WBC (Bld) [#/Vol] 2.7 10*3/uL Low 4.0-11.0 [facility] Comment on above: Performed By: #### C LANA, 60907-2, , CBCA #### [facility] ([id number]) [address] [place] [address] COMPREHENSIVE METABOLIC PANE [facility] 04-15-2023 Albumin [Mass/Vol] 2.4 g/dL Low 3.2-5.3 [facility] Comment on above: Performed By: #### C LANA, 18471-4, , CBCA #### [facility] ([id number]) [address] [place] [address] ALP [Catalytic activity/Vol] 63 U/L Normal 39-130 [facility] Comment on above: Performed By: #### C LANA, 89320-1, , CBCA #### [facility] ([id number]) [address] [place] [address] ALT [Catalytic activity/Vol] 18 U/L Normal 0-31 [facility] Comment on above: Performed By: #### C , 25280-4, , CBCA #### [facility] ([id number]) [address] [place] [address] Anion gap [Moles/Vol] 6 mmol/L Normal 5-15 [facility] Comment on above: Performed By: #### C , 16876-8, , CBCA #### [facility] ([id number]) [address] [place] [address] AST [Catalytic activity/Vol] 24 U/L Normal 0-41 [facility] Comment on above: Performed By: #### C , 06963-4, , CBCA #### [facility] ([id number]) [address] [place] [address] Bilirubin [Mass/Vol] 0.7 mg/dL Normal 0.3-1.2 [facility] Comment on above: Performed By: #### C , 35281-2, , CBCA #### [facility] ([id number]) [address] [place] [address] Calcium [Mass/Vol] 7.8 mg/dL Low 8.5-10.5 [facility] Comment on above: Performed By: #### C , 71976-3, , CBCA #### [facility] ([id number]) [address] [place] [address] Chloride [Moles/Vol] 115 mmol/L High 98-109 [facility] Comment on above: Performed By: #### C , 26379-0, , CBCA #### [facility] ([id number]) [address] [place] [address] CO2 [Moles/Vol] 25 mmol/L Normal 22-32 [facility] Comment on above: Performed By: #### C LANA, 74416-0, , CBCA #### [facility] ([id number]) [address] [place] [address] Creatinine [Mass/Vol] 1.43 mg/dL High 0.40-1.00 [facility] Comment on above: Result Comment: METH OD TRACEABLE TO IDMS STANDARD Performed By: #### C LANA, 83042-4, , CBCA #### [facility] ([id number]) [address] [place] [address] GFR/1.73 sq M.predicted among non-blacks MDRD (S/P/Bld) [Vol rate/Area] 42 mL/min/{1.73_m2} Low >59 [facility] Comment on above: Result Comment: Reported eGFR is based on the CKD-EPI 2020 equation that does not use a race coefficient. Performed By: #### C LANA, 21028-7, , CBCA #### [facility] ([id number]) [address] [place] [address] Glucose [Mass/Vol] 118 mg/dL High 65-99 [facility] Comment on above: Performed By: #### C LANA, 92822-3, , CBCA #### [facility] ([id number]) [address] [place] [address] Potassium [Moles/Vol] 2.8 mmol/L Low 3.5-5.0 [facility] Comment on above: Performed By: #### C LANA, 67525-2, , CBCA #### [facility] ([id number]) [address] [place] [address] Protein [Mass/Vol] 6.0 g/dL Normal 6.0-8.0 [facility] Comment on above: Performed By: #### C LANA, 48561-5, 66726-3, CBCA #### [facility] ([id number]) [address] [place] [address] Sodium [Moles/Vol] 146 mmol/L Normal 134-146 [facility] Comment on above: Performed By: #### C , 62444-8, 43599-2, CBCA #### [facility] ([id number]) [address] [place] [address] Urea nitrogen [Mass/Vol] 11 mg/dL Normal 5-23 [facility] Comment on above: Performed By: #### C , 15006-3, 42226-2, CBCA #### [facility] ([id number]) [address] [facility] [place] [address] Glucose Glucometer (BldC) [M ass/Vol]on 04-15-2023 Glucose [Mass/Vol] 118 mg/dL High 65-99 [facility] Glucose [Mass/Vol] 83 mg/dL Normal 65-99 [facility] Glucose [Mass/Vol] 112 mg/dL High 65-99 [facility] Glucose [Mass/Vol] 128 mg/dL High 65-99 [facility] LOWER RESPIRATORY CULTUREon 04-15-2023 Bacteria identified [...] 16 F TOBRAMYCIN S <=1 F Susceptible [facility] Comment on above: Performed By: #### 6 24-7 #### [facility] ([id number]) [address] [place] [address], [address] [place] [address] MAGNESIUMon 04-15-2023 Magnesium [Mass/Vol] 2.0 mg/dL Normal 1.8-2.6 [facility] Comment on above: Performed By: #### C LANA, 25589-4, , CBCA #### [facility] ([id number]) [address] [address] MRSA PCR NASALon 04-15-2023 MRSA DNA HUBERT+probe Ql (Unsp spec) Negative Normal NEG [facility] Comment on above: Performed By: #### C LANA, 22937-7, , CBCA #### [facility] ([id number]) [address] [place] [address] POTASSIUMon 04-15-2023 Potassium [Moles/Vol] 3.8 mmol/L Normal 3.5-5.0 [facility] Comment on above: Performed By: #### C LANA, 59378-4, , CBCA #### [facility] ([id number]) [address] [address] Potassium [Moles/Vol] 3.5 mmol/L Normal 3.5-5.0 [facility] Comment on above: Performed By: #### C LANA, 94807-6, , CBCA #### [facility] ([id number]) [address] [place] [address] Procalcitonin IA [Mass/Vol]o n 04-15-2023 PROCALCITONIN 0.57 ng/mL High <0.05 [facility] Comment on above: Result Comment: NOTE <0.50 ng/mL - Low risk of severe sepsis and/or septic shock. <2.00 ng/mL - Recommend retesting within 6-24 hours. >2.00 ng/mL - High risk of sepsis and/or septic shock. Performed By: #### C LANA, 29081-3, , CBCA #### [facility] ([id number]) [address] [place] [address] XR CHEST 1 VWon 04-15-2023 SARS-CoV-2 (COVID-19) [...] Aceves MD on 04/15/2023 5:56 AM Normal [facility] XR lumbar spine 6V w bending on 12-11-2022 XR lumbar spine 6V w bending [facility] [place] [address] [place] [address] XRay Report Signed Patient: Monet Recinos MR#: [id number] 80 : 1960 Acct:[id number] Age/Sex: 62 / F ADM Date: 12/11/22 Loc: XD Room: Type: [facility] Attending Dr: John Carson MD Copies [...] Marlyn Samayoa M.D.12/11/2022 10:23 AM Dictation Location: [place] [address] Transcribed By: LIZANDRO 12/11/22 1023 Dictated By: Marlyn Samayoa MD 12/11/22 1020 Signed By: 12/11/22 1023 Normal [facility] MR head/brain wo/w conon MR head/brain wo/w con [facility] [place] [address] [place] [address] MRI Report Signed Patient: Monet Recinos MR#: [id number] 82 : 1960 Acct:[id number] Age/Sex: 61 / F ADM Date: 01/24/22 Loc: MR Room: Type: [facility] Attending Dr: Eric Huerta DO Copies [...] Jamie Oconnor M.D.01/24/2022 3:41 PM Dictation Location: [place] [address] Transcribed By: [facility] 01/24/22 154 Dictated By: Jamie Oconnor II, MD 01/24/22 1537 Signed By: 01/24/22 1541 [facility] .Auto Diff 1on 01-07-2018 Auto Baso % 0.6 % Normal 0.2-2.0 [facility] Comment on above: Performed By: #### 6 584299, 5287893, [id number], 6797338585, 5296945131, 007012146, 6995993, 90899899 ####[facility] (DEFAULT)[address] [place] [address] Auto Nicholas % 6 % Normal 1-12 [facility] Comment on above: Performed By: #### 6 305233, 8645348, 8981223995, 7578921829, 9848613116, 861982537, 1441056, 88128847 ####[facility] (DEFAULT)[address] [place] [address] Auto Neut % 54 % Normal 44-88 [facility] Comment on above: Performed By: #### 6 472146, 6244698, 4473446274, 5719688128, 9391436220, 417848946, 4248290, 77299207 ####[facility] (DEFAULT)[address] [place] [address] Baso Abs# 0.0 x10 Normal 0.0-0.2 [facility] Comment on above: Performed By: #### 6 516788, 3478614, 6381822171, 7965224931, 6272767561, 461138021, 6201798, 20573612 ####[facility] (DEFAULT)[address] [place] [address] Eos Abs# 0.1 x10 Normal 0.0-0.4 [facility] Comment on above: Performed By: #### 6 240536, 5043440, 3628538952, 4363247505, 8521452295, 283375263, 2248420, 95885021 ####[facility] (DEFAULT)[address] [place], [place] [address] Eosinophils/100 WBC Auto (Bld) 1.4 % Normal 0.9-4.0 [facility] Comment on above: Performed By: #### 6 398083, 7393804, 6223964480, 6456105495, 3328582069, 282538157, 0028791, 43858871 ####[facility] (DEFAULT)[address] [place] [address] Lymphocytes Auto #/vol (Bld) 2.8 x10 Normal 1.3-2.9 [facility] Comment on above: Performed By: #### 6 163191, 1641332, 0842074257, 7332014287, 9260704579, 752026413, 8314594, 63584628 ####[facility] (DEFAULT)[address] [place] [address] Lymphocytes/100 WBC Auto (Bld) 39 % Normal 14-48 [facility] Comment on above: Performed By: #### 6 817460, 9547977, 4194477612, 5125488357, 2581665344, 626160647, 1274949, 01628653 ####[facility] (DEFAULT)[address] [place] [address] Nicholas Abs# 0.4 x10 Normal 0.0-0.8 [facility] Comment on above: Performed By: #### 6 344923, 1898965, 6230112361, 8291553320, 0905287244, 048343127, 4008187, 95462150 ####[facility] (DEFAULT)[address] [place] [address] Neut Abs# 3.9 x10 Normal 1.5-9.2 [facility] Comment on above: Performed By: #### 6 597248, 3573869, 3910271985, 6218263041, 7293738461, 548134276, 4326002, 95622149 ####[facility] (DEFAULT)[address] [place] [address] Acet Levelon 01-07-2018 Acetaminophen mass conc <10 Normal 10-30 [facility] Comment on above: Performed By: #### 6 680781, 7415029, 3271419770, 5467628342, 4426316943, 500387335, 6567509, 77925610 ####[facility] (DEFAULT)[address] [place] [address] CBC w/ Auto Diffon 8 Erythrocyte distribution width Auto Ratio (RBC) 17.0 % High 11.5-15.0 [facility] Comment on above: Performed By: #### 6 650781, 5348306, 6778233927, 2471841898, 2732052617, 947029504, 1833886, 83123385 ####[facility] (DEFAULT)[address] [place] [address] Hematocrit Auto Volume Fraction (Bld) 41.2 % High 33.7-40.4 [facility] Comment on above: Performed By: #### 6 690945, 6701140, 1199021881, 7872236192, 1231830232, 467022734, 0616130, 86343008 ####[facility] (DEFAULT)[address] [place] [address] Hemoglobin mass conc (Bld) 14.0 g/dL Normal 11.3-15.9 [facility] Comment on above: Performed By: #### 6 276913, 5230373, 3945114102, 1660355624, 3465717646, 921581378, 9082759, 75697731 ####[facility] (DEFAULT)[address] [place] [address] Man Diff? Auto Normal [facility] Comment on above: Performed By: #### 6 296973, 7695787, 8854232548, 8374851063, 2930450951, 588947131, 7466025, 13622292 ####[facility] (DEFAULT)[address] [place] [address] MCH Auto Entitic mass (RBC) 29 pg Normal 24-34 [facility] Comment on above: Performed By: #### 6 128303, 7734529, 2333698461, 1704945588, 1078278333, 653828028, 6860388, 77532898 ####[facility] (DEFAULT)[address] [place] [address] MCHC Auto mass conc (RBC) 34 g/dL Normal 26-37 [facility] Comment on above: Performed By: #### 6 931978, 8769093, 6833170510, 1996922333, 1282712502, 252372283, 9285558, 03504872 ####[facility] (DEFAULT)[address] [place] [address] MCV Auto Entitic volume (RBC) 84 fL Normal 81-100 [facility] Comment on above: Performed By: #### 6 555625, 3921542, 1751958854, 9964181226, 5490850619, 323598885, 5998172, 69741804 ####[facility] (DEFAULT)[address] [place] [address] Platelet mean volume Auto Entitic volume (Bld) 9.8 fL Normal 6.3-10.2 [facility] Comment on above: Performed By: #### 6 805788, 2551854, 7592272551, 4638387575, 7103198554, 051238804, 0583269, 17019095 ####[facility] (DEFAULT)[address] [place] [address] Platelets Auto #/vol (Bld) 268 x10 Normal 138-427 [facility] Comment on above: Performed By: #### 6 824322, 7082396, 7509650774, 3398765962, 0416218856, 012569134, 5775598, 83069439 ####[facility] (DEFAULT)[address] [place] [address] RBC Auto #/vol (Bld) 4.90 x10 Normal 3.70-5.30 [facility] Comment on above: Performed By: #### 6 040804, 3391310, 1881962493, 2403859983, 5911287583, 665636260, 4287397, 07960782 ####[facility] (DEFAULT)[address] [place] [address] WBC Auto #/vol (Bld) 7.2 x10 Invalid Interpretation Code [facility] Comment on above: Performed By: #### 6 734446, 6090763, 1501986093, 4262237379, 6673756531, 590954438, 1655966, 75991714 ####[facility] (DEFAULT)[address] [place] [address] CMP Standardon 01-07-2018 Bili Total 0.2 mg/dL Low 0.3-1.2 [facility] Comment on above: Performed By: #### 1 [id number], [id number] ####[facility] (DEFAULT)[address] [place] [address] eGFR Non AA >60 Invalid Interpretation Code [facility] Comment on above: Performed By: #### 1 [id number], [id number] ####[facility] (DEFAULT)[address] [place] [address] eGFR AA >60 Invalid Interpretation Code [facility] Comment on above: Result Comment: Business Test Analyst tri Kidney disease could be indicated at eGFRs of less than 60 ml/min/1.73m2. Kidney Failure is indicated at less than 15 ml/min/1.73m2 Performed By: #### 1 [id number], [id number] ####[facility] (DEFAULT)[address] [place] [address] Albumin mass conc 3.8 g/dL Normal 3.5-5.0 [facility] Comment on above: Performed By: #### 1 [id number], 9937728564 ####[facility] (DEFAULT)[address] [place] [address] Albumin/Globulin mass ratio 1.1 {ratio} Low 1.4-2.6 [facility] Comment on above: Performed By: #### 1 [id number], [id number] ####[facility] (DEFAULT)[address] [place] [address] Alk Phos 81 IU/L Normal 32-91 [facility] Comment on above: Performed By: #### 1 [id number], [id number] ####[facility] (DEFAULT)[address] [place] [address] ALT/SGPT 15.0 IU/L Normal 14.0-54.0 [facility] Comment on above: Performed By: #### 1 [id number], 1459053739 ####[facility] (DEFAULT)[address] [place] [address] Anion gap 3 molar conc 13.0 mmol/L Normal 5.0-19.0 [facility] Comment on above: Performed By: #### 1 [id number], [id number] ####[facility] (DEFAULT)[address] [place] [address] AST/SGOT 18 IU/L Normal 15-41 [facility] Comment on above: Performed By: #### 1 [id number], [id number] ####[facility] (DEFAULT)[address] [place] [address] Calcium mass conc 8.8 mg/dL Low 8.9-10.3 [facility] Comment on above: Performed By: #### 1 [id number], [id number] ####[facility] (DEFAULT)[address] [place] [address] Chloride molar conc 106 mmol/L Normal 101-111 [facility] Comment on above: Performed By: #### 1 [id number], [id number] ####[facility] (DEFAULT)[address] [place] [address] CO2 molar conc 23 mmol/L Normal 21-32 [facility] Comment on above: Performed By: #### 1 [id number], [id number] ####[facility] (DEFAULT)[address] [place] [address] Creatinine mass conc 0.77 mg/dL Normal 0.60-1.30 [facility] Comment on above: Performed By: #### 1 [id number], [id number] ####[facility] (DEFAULT)[address] [place] [address] Globulin Calculated mass conc (S) 3.6 g/dL Normal 1.5-4.3 [facility] Comment on above: Performed By: #### 1 [id number], [id number] ####[facility] (DEFAULT)[address] [place] [address] Glucose mass conc 91.0 mg/dL Normal 74.0-118.0 [facility] Comment on above: Performed By: #### 1 [id number], [id number] ####[facility] (DEFAULT)[address] [place] [address] Osmolality 277 mOsm/L Invalid Interpretation Code [facility] Comment on above: Performed By: #### 1 [id number], [id number] ####[facility] (DEFAULT)[address] [place] [address] Potassium molar conc 4.0 mmol/L Normal 3.6-5.1 [facility] Comment on above: Performed By: #### 1 [id number], [id number] ####[facility] (DEFAULT)[address] [place] [address] Protein mass conc 7.4 g/dL Normal 6.5-8.1 [facility] Comment on above: Performed By: #### 1 [id number], [id number] ####[facility] (DEFAULT)[address] [place] [address] Sodium molar conc 138.0 mmol/L Normal 136.0-144. 0 [facility] Comment on above: Performed By: #### 1 [id number], [id number] ####[facility] (DEFAULT)[address] [place] [address] Urea nitrogen mass conc 17 mg/dL Normal 8-26 [facility] Comment on above: Performed By: #### 1 [id number], [id number] ####[facility] (DEFAULT)[address] [place] [address]25 Urea nitrogen/Creatinin e mass ratio 22.0 mg/mg High 4.6-16.2 [facility] Comment on above: Performed By: #### 1 [id number], [id number] ####[facility] (DEFAULT)[address] [place] [address] ED Clinical Summaryon 2017 ED Clinical Summary [facility] - Emergency [address] [place] [address] eD Clinical SummaryPERSON INFORMATIONName: MONET RECINOS Age: 57 Years Sex: FEMALEDOB: [birth year] MRN: Acct#:Visit Reason: General medical; MEDICAL CLEARENCE Arrival: 01/07/18 13:27:00 Discharge: 01/07/18 15:22:00LOS: 000 01:55 Check In: 01/07/18 13:27:00 Checkout:01/07/18 15:22:00[address] [facility] [place] [address]BVQ: Provider, NonePROVIDER INFORMATIONProvider Role Assigned UnassignedTRylee Ness ED PA 01/07/18 13:36:17Magrum RN, Adrian ED [...] Complaint from Nursing Triage Note : Chief Jzsbgdyph47/13/18 13:28 EDT Chief Complaint sent from [facility] for medical clearance, depressed/anxiety .History of Present Vtlfjeq73-qdot-lfh female presents to the emergency department for medical clearance for psychiatric admission. Patient is feeling very depressed. She states she feels like she just wants to go to sleep and never wake up. She was seen at [facility] and will be admitted to [address]Review of SystemsConstitutional symptoms: No fever, no [...] risk.Documents reviewed: Emergency department nurses' notes, [facility] Counselling.Orders Launch OrdersLaboratory:Urinalysis with Culture, if indicated [...] Lab Collect.Results review: Lab results : Lab Bwnhtfsyn25/13/18 14:19 EDT Sodium Level 138.0 mmol/L Potassium [...] % Auto Lymph % 39 % Auto Nicholas % 6 % Auto Eos % 1.4 % Auto Baso % 0.6 % Neut Abs# 3.9 x103/mcL Lymph Abs# 2.8 x103/mcL Nicholas Abs# 0.4 x103/mcL Eos Abs# 0.1 x103/mcL [...] to be taken to [address] S. at [facility] for psychiatric admission. Patient with very flat [...] She will transport the patient directly to [address] as arrabnged by counsellor and accepted by Dr. Hackett.Impression and PlanDiagnosisSuicidal thoughts ([id number]-TA R45.851, Discharge, Medical)Depression, major (RTS61-WG F32.9, Discharge, Medical)PlanDisposition: Transfer to other location: Time: 01/07/18 15:05:00, Facility name: [facility], Accepted by: Dr. Hackett, [address], Time 01/07/18 14:50:00, Referral to [facility].Patient was given the following educational materials: Major Depressive Disorder, Adult.Follow up with: Report directly to [facility] main entrance to admitting office. You will be taken to [address] [place] [address] for admission by hospital personnel 01/07/2018 4:00 PM; .Counseled: Patient, Friend, Regarding diagnosis, Regarding diagnostic results, Regarding treatment plan, Regarding prescription, Patient indicated understanding of instructions.DISCHARGE INFORMATION:Discharge Disposition: Disch /Transfer to Psychiatric FacilityDis[facility] Location: [facility]IENT EDUCATION INFORMATIONInstructions: Major Depressive Disorder, AdultFollow-Up:With: Address: When:Report directly to [facility] main entrance to admitting office. You will be taken to [address] [place] [address] for admission by hospital personnel 01/07/2018 4:00 PMDIAGNOSIS:Depression, major; Suicidal thoughtsPatient Understands:Comment: [facility] ED Note - Otheron 01-07-2018 ED Note - Other 1454- I faxed over p atient information at this time to [facility],to Adrian Cordon, for medical clearance[Electronically Signed on: 01/07/2018 14:57 EDT] Familia Robertson[Verified on: 01/07/2018 14:57 EDT] Familia Robertson [facility] ED Note - Physicianon 2017 ED Note - Physician Patient: MONET RECINOS : 57 years Sex: FEMALE : 64Associated Diagnoses: Suicidal thoughts; Depression, majorAuthor: Todd Gaxiola InformationTime seen: Date & time 01/07/18 13:40:00.History source: Patient.Arrival mode: Private vehicle.History limitation: None.Additional information: Chief Complaint from Nursing Triage Note : Chief Yiutnlrrx12/13/18 13:28 EDT Chief Complaint sent from [facility] for medical clearance, depressed/anxiety .History of Present Axifhsc97-izew-jfq female presents to the emergency department for medical clearance for psychiatric admission. Patient is feeling very depressed. She states she feels like she just wants to go to sleep and never wake up. She was seen at [facility] and will be admitted to [address]Review of SystemsConstitutional symptoms: No fever, no [...] suicide risk.Documents reviewed: Emergency department nurses' notes, [facility].Orders Launch OrdersLaboratory:Urinalysis with Culture, if indicated [...] Lab Collect.Results review: Lab results : Lab Esznjtltl48/13/18 14:19 EDT Sodium Level 138.0 mmol/L Potassium [...] % Auto Lymph % 39 % Auto Nicholas % 6 % Auto Eos % 1.4 % Auto Baso % 0.6 % Neut Abs# 3.9 x103/mcL Lymph Abs# 2.8 x103/mcL Nicholas Abs# 0.4 x103/mcL Eos Abs# 0.1 x103/mcL [...] to be taken to 1 S. at [facility] for psychiatric admission. Patient with very flat [...] She will transport the patient directly to [address] as arrabnged by counsellor and accepted by Dr. Hackett.Impression and PlanDiagnosisSuicidal thoughts (WRL88-FX R45.851, Discharge, Medical)Depression, major (DQM01-XX F32.9, Discharge, Medical)PlanDisposition: Transfer to other location: Time: 01/07/18 15:05:00, Facility name: [facility], Accepted by: Dr. Hackett, [address] [place] [address], Time 01/07/18 14:50:00, Referral to [facility].Patient was given the following educational materials: Major Depressive Disorder, Adult.Follow up with: Report directly to [facility] main entrance to admitting office. You will be taken to [address] [place] [address] for admission by hospital personnel 01/07/2018 4:00 PM; .Counseled: Patient, Friend, Regarding diagnosis, Regarding diagnostic results, Regarding treatment plan, Regarding prescription, Patient indicated understanding of instructions.[Electronicall y Signed on: 01/07/2018 15:18 EDT] Rylee Gaxiola[Electronically Signed on: 01/07/2018 20:18 EDT] Nadege Fernandez MD[Verified on: 01/07/2018 15:18 EDT] Rylee Gaxiola [facility] ED Note-Nursingon 01-07-2018 ED Note-Nursing Pt is transferred to [facility] per private vehicle to be admitted to [address] [place] [address] room 1, bed #2. Pt's friend is driving her to [facility].The pt andher friend were instructed to report to [facility] front lobby, admitting department and then the pt. will be escorted to [address] [place] [address] per Security. pt had not beloingins with her at this time but the clothining on her back. [facility] ED Note-Nursing Pt sitting on the ca rt in ER room 4. Upon entering the room the pt did establish eye contact but she is blunted and does not initiate any conversation. She will look at you and she will answer questions. She admits that she just came from [facility] and she states I don't feel right . Pt states she is taking her meds as she is supposed to but she feels like I want to go to sleep and not wake up Pt states she does feel depressed and she does not feel suicidal, she just feel sad. Her BABBITTER is Dr. Rodriguez and she can not recall her Psychiatrist's name.Her friend brought lto the ER from [facility]. [facility] ED Patient Education Noteon 01-07-2018 ED Patient Education Note Education MaterialsMental and Behavioral HealthMajor Depressive Disorder, AdultMajor depressive [...] by your health care provider.General instructions? Take ehwk-qbl-ehvbtrd and prescription medicines only as told by [...] This is important.Where to find more information:National [place] on Mental Illness? www.isadora.orgU.S. National [place] of Mental Health? www.nimh.nih.govNational Suicide Prevention Lifeline? 2-044-875-TALK (6908). This is free, 24-hour help.Contact a health [...] Reviewed: 10/22/2016[employer] Patient Education ? 2017 [employer] Normal [facility] ED Patient Summaryon 018 ED Patient Summary [facility] [address] [place] [address] pATIENT DISCHARGE INSTRUCTIONSPatient InformationName: MONET RECINOS Age: 57 YearsDate of : [birth year]MRN: [id number] For Visit: General medical; MEDICAL CLEARENCEArrival Time: 01/07/18 13:27:00Phone: Primary Care Physician: Provider, NoneAttending Physician: Nadege Fernandez MDComment:Visit Diagnosis:Diagnoses This Visit Depression, major (F32.9) General medical ([id number]) Suicidal thoughts (R45.851)If you received any narcotics, [...] any legal documentsWith: Address: When:Report directly to [facility] main entrance to admitting office. You will be taken to [address] [place] [address] for admission by hospital personnel 01/07/2018 4:00 PMMedication Information:The exam and treatment you received today in the [facility] Emergency Department were for an urgent problem and are not intended as complete care. It is important for you to follow up with a doctor, nurse practitioner, or physician?s higher level teaching assistant for ongoing care. If your symptoms [...] number so we can reach you if necessary.[facility] Emergency Department has provided you with a complete list of medications post discharge. Please inform your director of primary care/provider of your visit and for further instruction [...] by your health care provider.General instructions? Take wkce-urx-frcpzaf and prescription medicines only as told by [...] This is important.Where to find more information:National [place] on Mental Illness? www.isadora.orgU.S. National [place] of Mental Health? www.[facility].nih.govNational Suicide Prevention Lifeline? 4-064-428-TALK (0521). This is free, 24-hour help.Contact a health [...] Reviewed: 10/22/2016[employer] Patient Education ? 2017 [employer] Viruses or BacteriaWhat?s got you sick?Antibiotics only [...] the Answerwww.cdc.gov/getsmart GET SMART Know When Antibiotics Mila. Department of Health and Human ServicesCenters for Disease Control and Prevention December 2013 Normal [facility] Ethanol.on 01-07-2018 Ethanol Level <5.0 Normal 0.0-5.0 [facility] Comment on above: Performed By: #### 1 [id number], [id number] ####[facility] (DEFAULT)[address] [place] [address] Extra Redon 01-07-2018 Tube Collected Yes Invalid Interpretation Code [facility] Comment on above: Performed By: #### 6 [id number], [id number], [id number], [id number], [id number], [id number], [id number] ####[facility] (DEFAULT)[address] [place] [address] Salicylateon 01-07-2018 Salicylate Lvl <4.0 Normal 0.0-30.0 [facility] Comment on above: Result Comment: Sali cylate ranges less than 30 mg/dL are considered to be therapeutic. Levels greater than 30 mg/dL are considered toxic and levels greater than 60 mg/dL may be lethal. Performed By: #### 6 [id number], [id number], [id number], [id number], [id number], [id number], [id number] ####[facility] (DEFAULT)[address] [place] [address] TSH w/ Reflex to FT4on 01-07 Thyrotropin Qn 1.54 mcIU/mL Normal 0.45-5.33 [facility] Comment on above: Result Comment: Gene ral Population (males and non- females, aged 21-88) 0.45 - 5.33 Females, 1st Trimester 0.05 - 3.70 Females, 2nd Trimester 0.31 - 4.35 Females, 3rd Trimester 0.41 - 5.18 Performed By: #### 1 [id number], [id number] ####[facility] (DEFAULT)[address] [place] [address] Transfer Noteon 01-07-2018 Transfer Note [id number]#1.00OTGTIFF [facility] Triage Panel 1201-07-2018 Protein mass conc Negative [facility] Comment on above: Performed By: #### 1 [id number], [id number] ####[facility] (DEFAULT)[address] [place] [address] Triage Internal Control Pass [facility] Comment on above: Performed By: #### 1 [id number], [id number] ####[facility] (DEFAULT)[address] [place] [address] U Amph Scr Negative [facility] Comment on above: Performed By: #### 1 [id number], [id number] ####[facility] (DEFAULT)[address] [place] [address] U Carol Scr Negative [facility] Comment on above: Performed By: #### 1 [id number], [id number] ####[facility] (DEFAULT)[address] [place] [address] U Benzodia Scr Negative [facility] Comment on above: Performed By: #### 1 [id number], [id number] ####[facility] (DEFAULT)[address] [place] [address] U Cannab Scrn Negative [facility] Comment on above: Performed By: #### 1 [id number], [id number] ####[facility] (DEFAULT)[address] [place] [address] U Cocaine Scr Negative [facility] Comment on above: Performed By: #### 1 [id number], [id number] ####[facility] (DEFAULT)[address] [place] [address]1838 U Methadone Scr Negative [facility] Comment on above: Performed By: #### 1 [id number], [id number] ####[facility] (DEFAULT)[address] [place] [address]61 U Methamp Scrn Negative [facility] Comment on above: Performed By: #### 1 [id number], [id number] ####[facility] (DEFAULT)[address] [place] [address] 65003 U Opiate Scr Negative [facility] Comment on above: Performed By: #### 1 [id number], [id number] ####[facility] (DEFAULT)[address] [place] [address] 64750 U Oxycod Scr Negative [facility] Comment on above: Performed By: #### 1 [id number], [id number] ####[facility] (DEFAULT)[address] [place] [address] U Phencyclidine Scr Negative [facility] Comment on above: Performed By: #### 1 [id number], [id number] ####[facility] (DEFAULT)[address] [place] [address]991 U Tricyclic Antidepress Scr Negative [facility] Comment on above: Performed By: #### 1 [id number], [id number] ####[facility] (DEFAULT)[address] [place] [address] 95277 Urine Source Clean Catch [facility] Comment on above: Performed By: #### 1 [id number], [id number] ####[facility] (DEFAULT)[address] [place] [address] UA w Culture if Ind Standard on 01-07-2018 Breakpoint UA Normal [facility] Comment on above: Performed By: #### 1 [id number], [id number] ####[facility] (DEFAULT)[address] [place] [address] Color Nom (U) YELLOW Invalid Interpretation Code [facility] Comment on above: Performed By: #### 1 [id number], [id number] ####[facility] (DEFAULT)[address] [place] [address] Culture? Not Indicated Invalid Interpretation Code [facility] Comment on above: Performed By: #### 1 [id number], [id number] ####[facility] (DEFAULT)[address] [place] [address] Glucose mass conc (U) Negative Invalid Interpretation Code [facility] Comment on above: Performed By: #### 1 [id number], [id number] ####[facility] (DEFAULT)[address] [place] [address] Ketones Ql (U) Negative Invalid Interpretation Code [facility] Comment on above: Performed By: #### 1 [id number], [id number] ####[facility] (DEFAULT)[address] [place] [address] Micro? Not Indicated Invalid Interpretation Code [facility] Comment on above: Performed By: #### 1 [id number], [id number] ####[facility] (DEFAULT)[address] [place] [address] UA Bilirubin Negative Normal [facility] Comment on above: Performed By: #### 1 [id number], [id number] ####[facility] (DEFAULT)[address] [place] [address]48 UA Blood Negative Normal NEGATIVE [facility] Comment on above: Performed By: #### 1 [id number], [id number] ####[facility] (DEFAULT)[address] [place] [address] UA Clarity CLEAR Normal CLEAR [facility] Comment on above: Performed By: #### 1 [id number], [id number] ####[facility] (DEFAULT)[address] [place] [address] 77272 UA Leuk Est Negative Normal NEGATIVE [facility] Comment on above: Performed By: #### 1 [id number], [id number] ####[facility] (DEFAULT)[address] [place] [address] UA Nitrite Negative Normal NEGATIVE [facility] Comment on above: Performed By: #### 1 [id number], [id number] ####[facility] (DEFAULT)[address] [place] [address] UA pH 6.0 Invalid Interpretation Code 5-8 [facility] Comment on above: Performed By: #### 1 [id number], [id number] ####[facility] (DEFAULT)[address] [place] [address] UA Protein Negative Normal NEGATIVE [facility] Comment on above: Performed By: #### 1 [id number], [id number] ####[facility] (DEFAULT)[address] [place] [address] UA Spec Grav >=1.030 Invalid Interpretation Code 1.001-1.03 5 [facility] Comment on above: Performed By: #### 1 [id number], [id number] ####[facility] (DEFAULT)[address] [place] [address] UA Urobilinogen 0.2 mg/dL Normal 0.2-1.0 [facility] Comment on above: Performed By: #### 1 [id number], [id number] ####[facility] (DEFAULT)[address] [place] [address] Urine Source Clean Catch Normal [facility] Comment on above: Performed By: #### 1 [id number], [id number] ####[facility] (DEFAULT)[address] [place] [address] Vital Signs Date Time Vital Sign Value Performing Clinician Facility 02-06-2025 12: Body height 175.3 cm Risa Summers MD Work Phone: [facility] 02-06-2025 12: Body mass index (BMI) [Ratio] 35.14 kg/m2 Risa Summers MD Work Phone: [facility] 02-06-2025 12: Body weight 108 kg Risa Summers MD Work Phone: [facility] 02-06-2025 12:10-0400 Diastolic blood pressure 80 mm[Hg] Risa Summers MD Work Phone: [facility] 02-06-2025 12:10-0400 Heart rate 96 /min Risa Summers MD Work Phone: [facility] 02-06-2025 12:10-0400 SaO2% (BldA) [Mass fraction] 97 % Risa Summers MD Work Phone: [facility] 02-06-2025 12:10-0400 Systolic blood pressure 100 mm[Hg] Risa Summers MD Work Phone: [facility] 01-03-2025 11:48-0400 Body height 175.3 cm Pmh 1 [facility] 01-03-2025 11:48-0400 Body mass index (BMI) [Ratio] 36.92 kg/m2 Pmh 1 [facility] 01-03-2025 11:48-0400 Body weight 113.4 kg Pmh 1 [facility] 12-19-2024 13:11-0400 Body height 175.3 cm Pmh 1 [facility] 12-19-2024 13:11-0400 Body mass index (BMI) [Ratio] 36.62 kg/m2 Pmh 1 [facility] 12-19-2024 13:11-0400 Body weight 112.49 kg Pmh 1 [facility] 12-15-2024 12:37-0400 Body height 175.3 cm Rajni Cardozo DO Work Phone: [facility] 12-15-2024 12:37-0400 Body mass index (BMI) [Ratio] 35.66 kg/m2 Rajni Cardozo DO Work Phone: [facility] 12-15-2024 12:37-0400 Body temperature 98.49 [degF] Rajni Cardozo DO Work Phone: [facility] 12-15-2024 12:37-0400 Body weight 109.59 kg Rajni Cardozo DO Work Phone: [facility] 12-15-2024 12:37-0400 Diastolic blood pressure 62 mm[Hg] Rajni Perrys DO Work Phone: [facility] 12-15-2024 12:37-0400 Heart rate 88 /min Rajni Perrys DO Work Phone: [facility] 12-15-2024 12:37-0400 Respiratory rate 20 /min Rajni Perrys DO Work Phone: [facility] 12-15-2024 12:37-0400 SaO2% (BldA) [Mass fraction] 95 % Rajni Cardozo DO Work Phone: [facility] 12-15-2024 12:37-0400 Systolic blood pressure 110 mm[Hg] Rajni Cardozo DO Work Phone: [facility] 12-05-2024 09:21-0400 SaO2% (BldA) [Mass fraction] 92 % [facility] Comment on above: Performed By: #### VBG #### [facility] ([address] [address] VIR 12-04-2024 13:28-0400 SaO2% (BldA) [Mass fraction] 94 % [facility] Comment on above: Performed By: #### BMP #### [facility] ([facility]) [address] [place] [address] VIR 12-04-2024 07:16-0400 SaO2% (BldA) [Mass fraction] 100 % [facility] Comment on above: Performed By: #### VBG ####[facility] ([address] [address] VIR 11-28-2024 13:57-0400 Body height 175.3 cm Odessa RANDALL Work Phone: [facility] 11-28-2024 13:57-0400 Body mass index (BMI) [Ratio] 37.97 kg/m2 Odessa Cook [employer]ES 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 Work Phone: [facility] 11-28-2024 13:57-0400 Body weight 116.62 kg Odessa Salcedouikilo ALLIANCES 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 Work Phone: [facility] 11-28-2024 13:57-0400 Diastolic blood pressure 74 mm[Hg] Odessa Cook ALLIANCES 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 Work Phone: [facility] 11-28-2024 13:57-0400 Heart rate 96 /min Odessa Salcedouikilo ALLIANCES 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 Work Phone: [facility] 11-28-2024 13:57-0400 SaO2% (BldA) [Mass fraction] 92 % Odessa Cook ALLIANCES 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 Work Phone: [facility] 11-28-2024 13:57-0400 Systolic blood pressure 126 mm[Hg] Odessa Cook ALLIANCES 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 Work Phone: [facility] 11-07-2024 14:17-0400 Body height 175.3 cm Rajni Cardozo DO Work Phone: [facility] [employer] 11-07-2024 14:17-0400 Body mass index (BMI) [Ratio] 40.38 kg/m2 aRjni Cardozo DO Work Phone: [facility] [employer] 11-07-2024 14:17-0400 Body temperature 98.4 [degF] Rajni Cardozo DO [facility] Phone: [facility] 11-07-2024 14:17-0400 Body weight 124.1 kg Rajni Cardozo DO Work Phone: [facility] [employer] 11-07-2024 14:17-0400 Diastolic blood pressure 60 mm[Hg] Rajni Cardozo DO [facility] Phone: [facility] 11-07-2024 14:17-0400 Heart rate 90 /min Rajni Perrys DO Work Phone: [facility] [employer] [facility] 11-07-2024 14:17-0400 Respiratory rate 20 /min Rajni Perrys DO Work Phone: [facility] 11-07-2024 14:17-0400 SaO2% (BldA) [Mass fraction] 92 % Rajni Perrys DO Work Phone: [facility] 11-07-2024 14:17-0400 Systolic blood pressure 130 mm[Hg] Rajni Perrys DO Work Phone: [facility] 10-27-2024 16:17-0400 Body height 175.3 cm Rajni Perrys DO Work Phone: [facility] 10-27-2024 16:17-0400 Body mass index (BMI) [Ratio] 38.5 kg/m2 Rajni Perrys DO Work Phone: [facility] 10-27-2024 16:17-0400 Body temperature 98.29 [degF] Rajni Perrys DO Work Phone: [facility] 10-27-2024 16:17-0400 Body weight 118.3 kg Rajni Perrys DO Work Phone: [facility] 10-27-2024 16:17-0400 Diastolic blood pressure 84 mm[Hg] Rajni Perrys DO Work Phone: [facility] 10-27-2024 16:17-0400 Heart rate 77 /min Rajni Perrys DO Work Phone: [facility] 10-27-2024 16:17-0400 Respiratory rate 20 /min Rajni Francohas DO Work Phone: [facility] 10-27-2024 16:17-0400 SaO2% (BldA) [Mass fraction] 94 % Rajni Perrys DO Work Phone: [facility] 10-27-2024 16:17-0400 Systolic blood pressure 130 mm[Hg] Rajni Cardozo DO Work Phone: [facility] [employer] 10-07-2024 11:44-0400 Body height 175.3 cm Rajni Cardozo DO Work Phone: [facility] [employer] 10-07-2024 11:44-0400 Body mass index (BMI) [Ratio] 36.4 kg/m2 Rajni Cardozo DO Work Phone: [facility] 10-07-2024 11:44-0400 Body temperature 97.9 [degF] Rajni Cardozo DO Work Phone: [facility] [employer] [facility] 10-07-2024 11:44-0400 Body weight 111.86 kg Rajni Cardozo DO Work Phone: [facility] [employer] [facility] 10-07-2024 11:44-0400 Diastolic blood pressure 70 mm[Hg] Rajni Cardozo DO Work Phone: [facility] 10-07-2024 11:44-0400 Heart rate 90 /min Rajni Cardozo DO Work Phone: [facility] [employer] 10-07-2024 11:44-0400 Respiratory rate 20 /min Rajni Cardozo DO Work Phone: [facility] [employer] 10-07-2024 11:44-0400 SaO2% (BldA) [Mass fraction] 97 % Rajni Cardozo DO Work Phone: [facility] 10-07-2024 11:44-0400 Systolic blood pressure 122 mm[Hg] Rajni Cardozo DO Work Phone: [facility] [employer] [facility] 09-21-2024 15:18-0400 Body height 175.3 cm Sydnie Cesar DO Work Phone: [facility] 09-21-2024 15:18-0400 Body mass index (BMI) [Ratio] 36.71 kg/m2 Sydnie Cesar DO Work Phone: [facility] 09-21-2024 15:18-0400 Body weight 112.76 kg Sydnie Cesar DO Work Phone: [facility] 09-21-2024 15:18-0400 Diastolic blood pressure 74 mm[Hg] Sydnie Cesar DO Work Phone: [facility] 09-21-2024 15:18-0400 Heart rate 93 /min Sydnie Cesar DO Work Phone: [facility] 09-21-2024 15:18-0400 SaO2% (BldA) [Mass fraction] 92 % Sydnie Cesar DO Work Phone: [facility] 09-21-2024 15:18-0400 Systolic blood pressure 141 mm[Hg] Sydnie Cesar DO Work Phone: [facility] 09-01-2024 11:05-0400 Body height 175.3 cm Myriam Peacock MD Work Phone: [facility] 09-01-2024 11:05-0400 Body mass index (BMI) [Ratio] 36.77 kg/m2 Myriam Peacock MD Work Phone: [facility] 09-01-2024 11:05-0400 Body weight 112.95 kg Myriam Peacock MD Work Phone: [facility] 09-01-2024 11:05-0400 Diastolic blood pressure 64 mm[Hg] Myriam Peacock MD Work Phone: [facility] 09-01-2024 11:05-0400 Heart rate 96 /min Myriam Peacock MD Work Phone: [facility] 09-01-2024 11:05-0400 SaO2% (BldA) [Mass fraction] 97 % Myriam Peacock MD Work Phone: [facility] 09-01-2024 11:05-0400 Systolic blood pressure 108 mm[Hg] Myriam Peacock MD Work Phone: [facility] [employer] [facility] 07-07-2024 13:09-0400 Body height 175.3 cm Rajni Cardozo DO Work Phone: [facility] 07-07-2024 13:09-0400 Body mass index (BMI) [Ratio] 35.21 kg/m2 Rajni Cardozo DO Work Phone: [facility] 07-07-2024 13:09-0400 Body temperature 98.1 [degF] Rajni Cardozo DO Work Phone: [facility] 07-07-2024 13:09-0400 Body weight 108.14 kg Rajni Cardozo DO Work Phone: [facility] 07-07-2024 13:09-0400 Diastolic blood pressure 70 mm[Hg] Rajni Cardozo DO Work Phone: [facility] 07-07-2024 13:09-0400 Heart rate 97 /min Rajni Cardozo DO Work Phone: [facility] 07-07-2024 13:09-0400 SaO2% (BldA) [Mass fraction] 95 % Rajni Cardozo DO Work Phone: [facility] 07-07-2024 13:09-0400 Systolic blood pressure 122 mm[Hg] Rajni Cardozo DO Work Phone: [facility] 03-17-2024 13:00-0500 Body height 175.3 cm Sydniearianna Guerrero DO Work Phone: [facility] 03-17-2024 13:00-0500 Body mass index (BMI) [Ratio] 33.82 kg/m2 Sydnie Cesar DO Work Phone: [facility] 03-17-2024 13:00-0500 Body weight 103.87 kg Sydniearianna Guerrero DO Work Phone: [facility] 03-17-2024 13:00-0500 Diastolic blood pressure 72 mm[Hg] Sydnie Cesar DO Work Phone: [facility] 03-17-2024 13:00-0500 Heart rate 114 /min Sydnie Cesar DO Work Phone: [facility] 03-17-2024 13:00-0500 SaO2% (BldA) [Mass fraction] 89 % Sydnie Cesar DO Work Phone: [facility] 03-17-2024 13:00-0500 Systolic blood pressure 115 mm[Hg] Sydnie Cesar DO Work Phone: [facility] 03-07-2024 13:10-0500 Body height 175.3 cm Rajni Cardozo DO Work Phone: [facility] 03-07-2024 13:10-0500 Body mass index (BMI) [Ratio] 32.93 kg/m2 Rajni Perrys DO Work Phone: [facility] 03-07-2024 13:10-0500 Body temperature 98.4 [degF] Rajni Perrys DO Work Phone: [facility] 03-07-2024 13:10-0500 Body weight 101.15 kg Rajni Perrys DO Work Phone: [facility] 03-07-2024 13:10-0500 Diastolic blood pressure 60 mm[Hg] Rajni Perrys DO Work Phone: [facility] 03-07-2024 13:10-0500 Heart rate 87 /min Rajni Perrys DO Work Phone: [facility] 03-07-2024 13:10-0500 SaO2% (BldA) [Mass fraction] 93 % Rajni Perrys DO Work Phone: [facility] 03-07-2024 13:10-0500 Systolic blood pressure 102 mm[Hg] Rajni Francohas DO Work Phone: [facility] 02-19-2024 10:36-0400 Body height 175.3 cm Myriam Giles MD Work Phone: [facility] [employer] 02-19-2024 10:36-0400 Body mass index (BMI) [Ratio] 33.7 kg/m2 Myriam Giles MD Work Phone: [facility] [employer] [facility] 02-19-2024 10:36-0400 Body weight 103.51 kg Myriam Giles MD Work Phone: [facility] [employer] [facility] 02-19-2024 10:36-0400 Diastolic blood pressure 66 mm[Hg] Myriam Giles MD Work Phone: [facility] [employer] [facility] 02-19-2024 10:36-0400 Heart rate 71 /min Myriam Giles MD Work Phone: [facility] [employer] [facility] 02-19-2024 10:36-0400 SaO2% (BldA) [Mass fraction] 93 % Myriam Giles MD Work Phone: [facility] [employer] [facility] 02-19-2024 10:36-0400 Systolic blood pressure 100 mm[Hg] Myriam Giles MD Work Phone: [facility] [employer] [facility] 01-04-2024 13:02-0400 Body height 175.3 cm Rajni Cardozo DO Work Phone: [facility] [employer] [facility] 01-04-2024 13:02-0400 Body mass index (BMI) [Ratio] 33.4 kg/m2 Rajni Cardozo DO Work Phone: [facility] [employer] [facility] 01-04-2024 13:02-0400 Body temperature 98.01 [degF] Rajni Cardozo DO Work Phone: [facility] [employer] [facility] 01-04-2024 13:02-0400 Body weight 102.6 kg Rajni Cardozo DO Work Phone: [facility] [employer] [facility] 01-04-2024 13:02-0400 Diastolic blood pressure 64 mm[Hg] Rajni Cardozo DO Work Phone: [facility] [employer] [facility] 01-04-2024 13:02-0400 Heart rate 90 /min Rajni Cardozo DO Work Phone: [facility] 01-04-2024 13:02-0400 SaO2% (BldA) [Mass fraction] 93 % Rajni Cardozo DO Work Phone: [facility] 01-04-2024 13:02-0400 Systolic blood pressure 110 mm[Hg] Rajni Cardozo DO Work Phone: [facility] 12-08-2023 19:58-0400 Body height 175.3 cm Pmh 2 [facility] 12-08-2023 19:58-0400 Body mass index (BMI) [Ratio] 35.15 kg/m2 Pm 2 [facility] 12-08-2023 19:58-0400 Body weight 107.96 kg Pm 2 [facility] 11-02-2023 15:46-0400 Diastolic blood pressure 70 mm[Hg] Rajni Cardozo DO Work Phone: [facility] 11-02-2023 15:46-0400 Systolic blood pressure 114 mm[Hg] Rajni Cardozo DO Work Phone: [facility] 11-02-2023 15:44-0400 Body height 175.3 cm Rajni Perrys DO Work Phone: [facility] 11-02-2023 15:44-0400 Body mass index (BMI) [Ratio] 35.74 kg/m2 Rajni Cardozo DO Work Phone: [facility] 11-02-2023 15:44-0400 Body temperature 97.9 [degF] Rajni Perrys DO Work Phone: [facility] 11-02-2023 15:44-0400 Body weight 109.77 kg Rajni Perrys DO Work Phone: [facility] 11-02-2023 15:44-0400 Heart rate 83 /min Rajni Cardozo DO Work Phone: [facility] 11-02-2023 15:44-0400 SaO2% (BldA) [Mass fraction] 96 % Rajni Cardozo DO Work Phone: [facility] 09-30-2023 13:38-0400 Body height 175.3 cm Rajni Cardozo DO Work Phone: [facility] 09-30-2023 13:38-0400 Body mass index (BMI) [Ratio] 35.99 kg/m2 Rajni Cardozo DO Work Phone: [facility] 09-30-2023 13:38-0400 Body temperature 98.8 [degF] Rajni Cardozo DO Work Phone: [facility] 09-30-2023 13:38-0400 Body weight 110.54 kg Rajni Cardozo DO Work Phone: [facility] 09-30-2023 13:38-0400 Diastolic blood pressure 60 mm[Hg] Rajni Cardozo DO Work Phone: [facility] 09-30-2023 13:38-0400 Heart rate 82 /min Rajni Cardozo DO Work Phone: [facility] 09-30-2023 13:38-0400 Respiratory rate 18 /min Rajni Cardozo DO Work Phone: [facility] 09-30-2023 13:38-0400 SaO2% (BldA) [Mass fraction] 93 % Rajni Cardozo DO Work Phone: [facility] 09-30-2023 13:38-0400 Systolic blood pressure 110 mm[Hg] Rajni Cardozo DO Work Phone: [facility] 09-24-2023 11:15-0400 Diastolic blood pressure 68 mm[Hg] Kacey Stephens [employer] CONSULTANT[employer]TER Work Phone: [facility] 09-24-2023 11:15-0400 SaO2% (BldA) [Mass fraction] 91 % Kacey Kuns [employer]IANCES CONSULTANT-ROUTER SETTER Work Phone: [facility] 09-24-2023 11:15-0400 Systolic blood pressure 110 mm[Hg] Kacey MEDINAROUTER SETTER Work Phone: [facility] 09-24-2023 11:11-0400 Body height 175.3 cm Kacey MEDINAROUTER SETTER Work Phone: [facility] 09-24-2023 11:11-0400 Body mass index (BMI) [Ratio] 36.56 kg/m2 Kacey Stephens APRN-ROUTER SETTER Work Phone: [facility] 09-24-2023 11:11-0400 Body temperature 97.7 [degF] Kacey MEDINAROUTER SETTER Work Phone: [facility] 09-24-2023 11:11-0400 Body weight 112.31 kg Kacey MEDINAROUTER SETTER Work Phone: [facility] 09-24-2023 11:11-0400 Heart rate 70 /min Kacey MEDINAROUTER SETTER Work Phone: [facility] 09-24-2023 11:11-0400 Respiratory rate 24 /min Kacey MEDINAROUTER SETTER Work Phone: [facility] 09-09-2023 13:36-0400 Diastolic blood pressure 76 mm[Hg] Rajni Lukassunshine DO Work Phone: [facility] 09-09-2023 13:36-0400 Systolic blood pressure 124 mm[Hg] Rajni Lukassunshine DO Work Phone: [facility] 09-09-2023 13:04-0400 Body height 175.3 cm Rajni Lukassunshine Work Phone: [facility] 09-09-2023 13:04-0400 Body mass index (BMI) [Ratio] 37.07 kg/m2 Rajni Cardozo DO Work Phone: [facility] 09-09-2023 13:04-0400 Body temperature 97.59 [degF] Rajni Cardozo DO Work Phone: [facility] 09-09-2023 13:04-0400 Body weight 113.85 kg Rajni Cardozo DO Work Phone: [facility] 09-09-2023 13:04-0400 Heart rate 88 /min Rajni Cardozo DO Work Phone: [facility] 09-09-2023 13:04-0400 SaO2% (BldA) [Mass fraction] 93 % Rajni Cardozo DO Work Phone: [facility] 08-11-2023 20:38-0400 Body height 175.3 cm Pm 2 [facility] 08-11-2023 20:38-0400 Body mass index (BMI) [Ratio] 38.1 kg/m2 Pm 2 [facility] 08-11-2023 20:38-0400 Body weight 117.03 kg Pm 2 [facility] 08-10-2023 13:53-0400 Diastolic blood pressure 76 mm[Hg] Rajni Cardozo DO Work Phone: [facility] 08-10-2023 13:53-0400 Systolic blood pressure 124 mm[Hg] Rajni Cardozo DO Work Phone: [facility] 08-10-2023 13:05-0400 Body height 175.3 cm Rajni Perrys DO Work Phone: [facility] 08-10-2023 13:05-0400 Body mass index (BMI) [Ratio] 38.03 kg/m2 Rajni Cardozo DO Work Phone: [facility] 08-10-2023 13:05-0400 Body temperature 98.6 [degF] Rajni Perrys DO Work Phone: [facility] 08-10-2023 13:05-0400 Body weight 116.8 kg Rajni Perrys DO Work Phone: [facility] [employer] [facility] 08-10-2023 13:05-0400 Heart rate 76 /min Rajni Francohas DO Work Phone: [facility] [employer] [facility] 08-10-2023 13:05-0400 Respiratory rate 18 /min Rajni Perrys DO Work Phone: [facility] [employer] [facility] 08-10-2023 13:05-0400 SaO2% (BldA) [Mass fraction] 93 % Rajni Perrys DO Work Phone: [facility] 07-27-2023 11:00-0400 Body temperature 98.01 [degF] Rajni Perrys DO Work Phone: [facility] 07-27-2023 11:00-0400 Diastolic blood pressure 79 mm[Hg] Rajni Perrys DO Work Phone: [facility] 07-27-2023 11:00-0400 Heart rate 85 /min Rajni Perrys DO Work Phone: [facility] 07-27-2023 11:00-0400 Respiratory rate 22 /min Rajni Perrys DO Work Phone: [facility] [employer] [facility] 07-27-2023 11:00-0400 SaO2% (BldA) [Mass fraction] 93 % Rajni Perrys DO Work Phone: [facility] 07-27-2023 11:00-0400 Systolic blood pressure 143 mm[Hg] Rajni Francohas DO Work Phone: [facility] 07-27-2023 05:57-0400 Body mass index (BMI) [Ratio] 33.77 kg/m2 Rajni Perrys DO Work Phone: [facility] 07-27-2023 05:57-0400 Body weight 103.74 kg Rajni Perrys DO Work Phone: [facility] [employer] [facility] 07-25-2023 19:05-0400 Body height 175.3 cm Rajni Cardozo DO Work Phone: [facility] [employer] [facility] 07-25-2023 17:52-0400 Body temperature 98.6 [degF] Rajni Perrys DO Work Phone: [facility] 07-25-2023 17:52-0400 SaO2% (BldA) [Mass fraction] 95 % Rajni Perrys DO Work Phone: [facility] 07-01-2023 14:20-0500 Body height 175.3 cm Rajni Cardozo DO Work Phone: [facility] 07-01-2023 14:20-0500 Body mass index (BMI) [Ratio] 38.42 kg/m2 Rajni Perrys DO Work Phone: [facility] 07-01-2023 14:20-0500 Body temperature 98.1 [degF] Rajni Cardozo DO Work Phone: [facility] 07-01-2023 14:20-0500 Body weight 118.03 kg Rajni Cardozo DO Work Phone: [facility] 07-01-2023 14:20-0500 Diastolic blood pressure 60 mm[Hg] Rajni Perrys DO Work Phone: [facility] 07-01-2023 14:20-0500 Heart rate 70 /min Rajni Perrys DO Work Phone: [facility] 07-01-2023 14:20-0500 SaO2% (BldA) [Mass fraction] 96 % Rajni Cardozo DO Work Phone: [facility] 07-01-2023 14:20-0500 Systolic blood pressure 122 mm[Hg] Rajni Cardozo DO Work Phone: [facility] 06-25-2023 10:18-0500 Body height 175.3 cm Grace Meadows DO Work Phone: [facility] 06-25-2023 10:18-0500 Body mass index (BMI) [Ratio] 37.08 kg/m2 Grace Meadows DO Work Phone: [facility] 06-25-2023 10:18-0500 Body weight 113.9 kg Grace Meadows DO Work Phone: [facility] 06-25-2023 10:18-0500 Diastolic blood pressure 75 mm[Hg] Grace Meadows DO Work Phone: [facility] 06-25-2023 10:18-0500 Heart rate 75 /min Grace Meadows DO Work Phone: [facility] 06-25-2023 10:18-0500 SaO2% (BldA) [Mass fraction] 96 % Grace Meadows DO Work Phone: [facility] 06-25-2023 10:18-0500 Systolic blood pressure 110 mm[Hg] Grace Meadows DO Work Phone: [facility] 06-01-2023 13:59-0500 Body height 175.3 cm Rajni Perrys DO Work Phone: [facility] 06-01-2023 13:59-0500 Body mass index (BMI) [Ratio] 38.59 kg/m2 Rajni Perrys DO Work Phone: [facility] 06-01-2023 13:59-0500 Body temperature 99.39 [degF] Rajni Lukashas DO Work Phone: [facility] 06-01-2023 13:59-0500 Body weight 118.53 kg Rajni Lukashas DO Work Phone: [facility] 06-01-2023 13:59-0500 Diastolic blood pressure 58 mm[Hg] Rajni Lukashas DO Work Phone: [facility] 06-01-2023 13:59-0500 SaO2% (BldA) [Mass fraction] 95 % Rajni Lukashas DO Work Phone: [facility] 06-01-2023 13:59-0500 Systolic blood pressure 104 mm[Hg] Rajni Cardozo DO Work Phone: [facility] 04-23-2023 07:01-0500 SaO2% (BldA) [Mass fraction] 95 % [facility] Comment on above: Performed By: #### ABG ####[facility] ([id number])[address] [place] [address] 04-19-2023 07:43-0500 SaO2% (BldA) [Mass fraction] 93 % [facility] Comment on above: Performed By: #### ABG #### [facility] ([id number]) [address] [place] [address] 04-18-2023 10:09-0500 SaO2% (BldA) [Mass fraction] 93 % [facility] Comment on above: Performed By: #### XENIA, 61851-5, [id number] , CBCA #### [facility] ([id number]) [address] [place] [address] 04-17-2023 07:52-0500 SaO2% (BldA) [Mass fraction] 93 % [facility] Comment on above: Performed By: #### XENIA, [id number], [id number] , CBCA #### [facility] ([id number]) [address] [place] [address] 04-16-2023 06:48-0500 SaO2% (BldA) [Mass fraction] 94 % [facility] Comment on above: Performed By: #### XENIA, [id number], [id number] , CBCA #### [facility] ([id number]) [address] [place] [address] 04-15-2023 07:26-0500 SaO2% (BldA) [Mass fraction] 95 % [facility] Comment on above: Performed By: #### ABG #### [facility] ([id number]) [address] [facility] [place] [address] 12-11-2022 08:40-0400 Body height John Yamileth Other [employer] Other 12-11-2022 08:40-0400 Body mass index (BMI) [Ratio] 38.83 kg/m2 John Yamileth Other [employer] Other 12-11-2022 08:40-0400 Body weight 119.3 kg John Carson Other [employer] Other 12-11-2022 08:40-0400 Diastolic blood pressure 80 mm[Hg] John Yamileth Other [employer] Other 12-11-2022 08:40-0400 Systolic blood pressure 126 mm[Hg] John Yamileth Other [employer] Other Encounters Encounter Date Encounter Type Care Provider Facility Start: 02-09-2025 End: 02-09-2025 Emergency department patient visit RAJNI Cardoso [facility] Start: 02-08-2025 End: 02-08-2025 Telephone encounter Sydnie Guerrero DO Work Phone: [facility] Start: 02-06-2025 End: 02-06-2025 Telephone encounter Tosin Reyes [facility] Start: 02-06-2025 End: 02-06-2025 ambulatory RISA SUMMERS [facility] Start: 02-06-2025 End: 02-06-2025 Office outpatient visit 25 minutes Risa Summers MD Work Phone: [facility] Comment on above: Chronic diastolic he art failure (CMS-HCC) (Primary Dx); Pulmonary hypertension (CMS-HCC); Nonrheumatic tricuspid valve regurgitation Start: 02-03-2025 End: 02-03-2025 Telephone encounter Antoinette Longings [facility] Start: 01-25-2025 End: 01-25-2025 Telephone encounter Sydnie Guerrero DO Work Phone: [facility] Start: 01-04-2025 End: 01-04-2025 Evaluation and management of inpatient [facility] Start: 01-03-2025 End: 01-03-2025 ambulatory [facility] Pat Phone Call Provider 1 [facility] - Pre Admit Start: 01-03-2025 End: 01-03-2025 Telephone encounter Sydnie Guerrero DO Work Phone: [facility] Start: 01-03-2025 End: 01-03-2025 ambulatory [facility] Start: 12-28-2024 End: 12-28-2024 Refill Rajni Cardozo DO [facility] Comment on above: Atherosclerotic hear t disease of [place] coronary artery with other forms of angina pectoris Start: 12-27-2024 ambulatory [facility] Start: 12-21-2024 End: 12-21-2024 ambulatory [facility] Start: 12-19-2024 End: 12-19-2024 ambulatory [facility] Pat Phone Call Provider 1 [facility] Pre Ad[facility] Start: 12-19-2024 End: 12-19-2024 ambulatory [facility] Start: 12-19-2024 End: 12-19-2024 ambulatory Ligia Root MD Facility:[facility] Start: 12-15-2024 End: 12-15-2024 Transitional care manage srvc 14 day discharge Rajni Cardozo DO Work Phone: [facility] Comment on above: Microcytic anemia (P rimary Dx); Gastro-esophageal reflux disease without esophagitis; Stage 3a chronic kidney disease ([facility]-HCC); Spinal stenosis of lumbar region with neurogenic claudication Start: 12-15-2024 End: 12-15-2024 ambulatory [facility] Start: 12-14-2024 ambulatory [facility] Start: 12-12-2024 End: 02-11-2025 Follow-up encounter Kacey Sims RN [facility] Comment on above: Basic Metabolic Pane l Start: 12-12-2024 ambulatory ODESSA COOK [facility] Start: 12-08-2024 End: 12-15-2024 Telephone encounter Liz Norman RN [facility] Comment on above: Transition Of Care Start: 12-04-2024 End: 12-06-2024 Evaluation and management of inpatient [facility] Start: 12-03-2024 End: 12-03-2024 Evaluation and management of inpatient [facility] Start: 11-30-2024 End: 11-30-2024 Follow-up encounter Kacey Sims RN [facility] Comment on above: Basic Metabolic Pane l Start: 11-29-2024 End: 01-29-2025 Follow-up encounter Rajni Cardozo DO Work Phone: [facility] Comment on above: X-ray knee right 3 v iews Start: 11-29-2024 ambulatory ODESSA COOK [facility] Start: 11-28-2024 End: 11-28-2024 ambulatory [facility] Start: 11-28-2024 End: 11-28-2024 Office outpatient visit 25 minutes Odessa Cook ALLIANCES 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 Work Phone: [facility] Comment on above: Chronic heart failur e with preserved ejection fraction (CMS- HCC) (Primary Dx); Pulmonary hypertension ([facility]-HCC); Nonrheumatic tricuspid valve regurgitation; Essential hypertension; Atherosclerosis of [place] coronary artery of [place] heart without angina pectoris; History of four vessel coronary artery bypass graft; NSTEMI (non-ST elevated myocardial infarction) ([facility]) Start: 11-28-2024 End: 11-28-2024 ambulatory ODESSA COOK [facility] Start: 11-23-2024 End: 11-23-2024 Refill Rajni Cardozo DO Work Phone: [facility] Comment on above: Peripheral polyneuro jose g Start: 11-14-2024 End: 11-14-2024 ambulatory Ligia Root MD Facility:[facility] Start: 11-07-2024 End: 11-07-2024 Office outpatient visit 25 minutes Rajni Cardozo DO Work Phone: [facility] Comment on above: Hiatal hernia with G ERD (Primary Dx); Stage 3a chronic kidney disease ([facility]); Patellar tendinitis of right knee; Gastro-esophageal reflux disease without esophagitis; Venous insufficiency of both lower extremities Start: 11-07-2024 End: 11-07-2024 ambulatory [facility] Start: 11-02-2024 End: 01-02-2025 Follow-up encounter Rajni Cardozo DO Work Phone: [facility] Comment on above: Fluoroscopy upper GI with esophagus Start: 11-02-2024 End: 11-02-2024 ambulatory [facility] Start: 10-27-2024 End: 10-27-2024 Office outpatient visit 25 minutes Rajni Cardozo DO Work Phone: [facility] Comment on above: Type 2 diabetes johanny itus with stage 3a chronic kidney disease, without long-term current use of insulin ([facility]) (Primary Dx); Venous insufficiency of both lower extremities; Chronic heart failure with preserved ejection fraction ([facility]); Stage 3a chronic kidney disease ([facility]); Nausea and vomiting, unspecified vomiting type; Arthritis of left sacroiliac joint Start: 10-27-2024 End: 10-27-2024 ambulatory [facility] Start: 10-13-2024 End: 10-13-2024 Refill Rajni Cardozo DO Work Phone: [facility] Comment on above: Peripheral polyneuro jose g Start: 10-11-2024 ambulatory [facility] Start: 10-07-2024 End: 10-07-2024 ambulatory [facility] Start: 10-07-2024 End: 10-07-2024 Office outpatient visit 25 minutes Rajni Cardozo DO Work Phone: [facility] Comment on above: Cervicogenic headach e (Primary Dx); Orthostatic hypotension; Chronic heart failure with preserved ejection fraction (CMS-HCC); Fibromyalgia syndrome Start: 09-21-2024 End: 09-21-2024 Office outpatient visit 15 minutes Sydnie Guerrero DO Work Phone: [facility] Comment on above: Chronic obstructive pulmonary disease, unspecified COPD type (CMS/HCC) (Primary Dx); Chronic respiratory failure with hypoxia and hypercapnia (CMS/HCC); BONY (obstructive sleep apnea) Start: 09-21-2024 End: 09-21-2024 ambulatory SYDNIE CARTERCK Not Available Start: 09-21-2024 End: 09-21-2024 Bamboo flowsheet Sydnie Magnolia Cesar DO Work Phone: [facility] Start: 09-21-2024 End: 09-21-2024 Bamboo flowsheet Sydnie K Cesar DO Work Phone: [facility] Start: 09-04-2024 End: 09-04-2024 Refill Rajni Cardozo DO Work Phone: [facility] Comment on above: Peripheral polyneuro jose g Start: 09-01-2024 End: 09-01-2024 Office outpatient visit 25 minutes Myriam Peacock MD Work Phone: [facility] Comment on above: Chronic heart failur e with preserved ejection fraction ([facility]- HCC) (Primary Dx); Atherosclerotic heart disease of [place] coronary artery with other forms of angina pectoris; Hx of CABG Start: 09-01-2024 End: 09-01-2024 ambulatory [facility] Start: 07-15-2024 End: 07-15-2024 Refill Ching Gay RN [facility] Comment on above: Med Refill Start: 07-15-2024 End: 07-15-2024 Refill Rajni Cardozo DO Work Phone: [facility] Comment on above: Gastro-esophageal re flux disease without esophagitis Start: 07-07-2024 End: 07-07-2024 ambulatory [facility] Start: 07-07-2024 End: 07-07-2024 ambulatory [facility] Ambulatory [facility] Start: 07-07-2024 End: 07-07-2024 Office outpatient visit 25 minutes Rajni Cardozo DO Work Phone: [facility] Comment on above: IFG (impaired fastin g glucose) (Primary Dx); Chronic obstructive pulmonary disease, unspecified COPD type ([facility]); Stage 3a chronic kidney disease ([facility]); Chronic respiratory failure with hypoxia and hypercapnia ([facility]); Chronic heart failure with preserved ejection fraction ([facility]); Bipolar 2 disorder, major depressive episode ([facility]); BMI 40.0-44.9, adult ([facility]); Atherosclerotic heart disease of [place] coronary artery with other forms of angina pectoris ([facility]-HCC); B12 deficiency; Peripheral polyneuropathy; Arthritis of left sacroiliac joint ([facility]) Start: 05-14-2024 End: 05-14-2024 Refill Rajni Cardozo DO Work Phone: [facility] Comment on above: Peripheral polyneuro jose g Start: 04-25-2024 End: 04-26-2024 Reflian Fam RN [facility] Comment on above: Med Refill Start: 04-07-2024 End: 04-09-2024 Refill Anil Zamora ALLIANCES 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 Work Phone: [facility] Comment on above: Med Refill Start: 03-29-2024 End: 03-29-2024 ambulatory RAJNI CARDOZO [facility] Start: 03-29-2024 End: 03-29-2024 Office outpatient visit 25 minutes Rajni Cardozo DO Work Phone: [facility] Comment on above: Contusion of lower l eg, unspecified laterality, initial encounter (Primary Dx) Start: 03-29-2024 End: 03-29-2024 Telephone encounter Monica Johnston CMA [facility] Start: 03-21-2024 End: 03-21-2024 ambulatory Ligia Root MD Facility:[facility] Start: 03-17-2024 End: 03-17-2024 Bamboo flowsheet Sydnie K Cesar DO Work Phone: [facility] Start: 03-17-2024 End: 03-17-2024 Bamboo flowsheet Sydnie K Cesar DO Work Phone: [facility] Start: 03-17-2024 End: 03-17-2024 Office outpatient new 45 minutes Sydnie K Cesar DO Work Phone: [facility] Comment on above: Chronic obstructive pulmonary disease, unspecified COPD type (CMS/HCC) (Primary Dx); Chronic respiratory failure with hypoxia and hypercapnia (CMS/HCC); Cigarette smoker Start: 03-17-2024 End: 03-17-2024 ambulatory SYDNIE GUERRERO Not Available Start: 03-09-2024 End: 03-09-2024 Refill Rajni Cardozo DO Work Phone: [facility] Comment on above: Gastro-esophageal re flux disease without esophagitis Start: 03-07-2024 End: 03-07-2024 ambulatory [facility] Start: 03-07-2024 End: 03-07-2024 Office outpatient visit 25 minutes aRjni Cardozo DO Work Phone: [facility] Comment on above: IFG (impaired fastin g glucose) (Primary Dx); Peripheral polyneuropathy; Stage 3a chronic kidney disease ([facility]); Chronic heart failure with preserved ejection fraction ([facility]); Atherosclerotic heart disease of [place] coronary artery with other forms of angina pectoris ([facility]) Start: 03-07-2024 End: 03-07-2024 ambulatory [facility] Start: 02-29-2024 End: 02-29-2024 ambulatory Ligia Root MD Facility:[facility] Start: 02-22-2024 End: 02-24-2024 Telephone encounter Monica Johnston [facility] Start: 02-22-2024 End: 02-22-2024 ambulatory Ligia Root MD Facility:[facility] Start: 02-19-2024 End: 02-19-2024 Office outpatient visit 15 minutes Alex Amos MD Work Phone: [facility] Comment on above: Atherosclerotic hear t disease of [place] coronary artery with other forms of angina pectoris ([facility]) (Primary Dx) Start: 02-19-2024 End: 02-19-2024 ambulatory MYRIAM Garcia [facility] Start: 02-18-2024 End: 02-18-2024 Telephone encounter Vicki Bailey [facility] Start: 02-09-2024 End: 02-09-2024 Bamboo flowsheet Eusebia Huertas DO Work Phone: [facility] Start: 02-09-2024 End: 02-09-2024 Bamboo flowsheet Eusebia Huertas DO Work Phone: [facility] Start: 02-09-2024 End: 02-09-2024 ambulatory EUSEBIA HUERTAS Not Available Start: 02-09-2024 End: 02-09-2024 Office outpatient visit 10 minutes Eusebia Agdleston DO Work Phone: [facility] Comment on above: Trigger point of lef t side of body (Primary Dx); Arthritis of left sacroiliac joint (CMS/HCC); Lumbosacral pain; Pain of left sacroiliac joint Start: 02-03-2024 End: 02-09-2024 Telephone encounter Fior Scott CMA [facility] Start: 02-01-2024 End: 02-01-2024 Telephone encounter Grace Meadows DO Work Phone: [facility] Start: 01-26-2024 End: 01-26-2024 Office outpatient visit 15 minutes Eusebia Agdleston DO Work Phone: [facility] Comment on above: Left shoulder pain, unspecified chronicity (Primary Dx); Arthritis of left shoulder region Start: 01-26-2024 End: 01-26-2024 ambulatory EUSEBIA HUERTAS Not Available Start: 01-21-2024 End: 01-21-2024 Orders Only Cynthia Buchanan ALLIANCES 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 Work Phone: [facility] Comment on above: Chronic heart failur e with preserved ejection fraction (CMS-HCC) Start: 01-20-2024 End: 01-20-2024 Refill Yadira Barrera RN [facility] Comment on above: Med Refill Start: 01-20-2024 End: 01-21-2024 Refill Rajni Cardozo DO Work Phone: [facility] Comment on above: Spinal stenosis of l umbar region with neurogenic claudication Med Change Request Start: 01-19-2024 End: 01-19-2024 Telephone encounter Anabela Cueva CMA [facility] Start: 01-18-2024 End: 01-18-2024 Refill Caitie Cabello RN [facility] Comment on above: Med Refill Start: 01-14-2024 ambulatory GRACE MEADOWS [facility] Start: 01-12-2024 End: 01-12-2024 Bamboo flowsheet Eusebia Obregon Aleksandar DO Work Phone: [facility] Start: 01-12-2024 End: 01-12-2024 Bamboo flowsheet Eusebia Obregon Aleksandar DO Work Phone: [facility] Start: 01-12-2024 End: 01-12-2024 ambulatory EUSEBIA Obregon ALEKSANDAR Not Available Start: 01-12-2024 End: 01-12-2024 Office outpatient visit 10 minutes Eusebia Huertas DO Work Phone: [facility] Comment on above: Trigger point of lef t side of body (Primary Dx) Start: 01-07-2024 End: 01-07-2024 Telephone encounter Sofya Coe CMA [facility] Start: 01-04-2024 End: 01-04-2024 ambulatory [facility] Start: 01-04-2024 End: 01-04-2024 Office outpatient visit 25 minutes [facility] DO Work Phone: [facility] Comment on above: Chronic respiratory failure with hypoxia and hypercapnia ([facility]) (Primary Dx); BONY treated with BiPAP; Spinal stenosis of lumbar region with neurogenic claudication; Chronic heart failure with preserved ejection fraction ([facility]) Start: 01-04-2024 End: 01-04-2024 ambulatory [facility] Start: 01-01-2024 End: 01-01-2024 Refill [facility] DO Work Phone: [facility] Comment on above: Spinal stenosis of l umbar region with neurogenic claudication Start: 12-30-2023 End: 12-31-2023 Telephone encounter Monica Johnston CMA [facility] Start: 12-29-2023 End: 12-29-2023 Bamboo flowsheet Eusebia Huertas DO Work Phone: [facility] Start: 12-29-2023 End: 12-29-2023 Bamboo flowsheet Eusebia Huertas DO Work Phone: [facility] Start: 12-29-2023 End: 12-29-2023 Office outpatient visit 25 minutes Eusebia Huertas DO Work Phone: [facility] Comment on above: Trigger point of lef t side of body (Primary Dx); Compression fracture of T6 vertebra with routine healing, subsequent encounter; Compression fracture of T8 vertebra with routine healing, subsequent encounter; Osteoporotic compression fracture of vertebra with routine healing, subsequent encounter Start: 12-29-2023 End: 12-29-2023 ambulatory EUSEBIA HUERTAS Not Available Start: 12-24-2023 End: 12-30-2023 Telephone encounter Monica Johnston [facility] Start: 12-17-2023 End: 12-17-2023 Telephone encounter Johnna Cortes [facility] Start: 12-15-2023 End: 12-15-2023 Telephone encounter Johnna Cortes [facility] Start: 12-10-2023 End: 12-10-2023 Telephone encounter Kaia Jovel MD Work Phone: [facility] Start: 12-08-2023 End: 12-08-2023 Clinical Support Grace Meadows DO Work Phone: [facility] - Sleep Disorders Comment on above: Arrived Start: 11-19-2023 End: 11-23-2023 Telephone encounter Tosin Reyes [facility] Start: 11-03-2023 End: 11-04-2023 Refill Rajni Cardozo DO Work Phone: [facility] Comment on above: Fibromyalgia syndrom e Start: 11-02-2023 End: 11-02-2023 ambulatory RAJNI CARDOZO [facility] Start: 11-02-2023 End: 11-02-2023 Office outpatient visit 25 minutes Rajni Cardozo DO Work Phone: [facility] Comment on above: Venous insufficiency of both lower extremities (Primary Dx); Chronic heart failure with preserved ejection fraction ([facility]); Acute pulmonary embolism without acute cor pulmonale, unspecified pulmonary embolism type ([facility]); B12 deficiency Start: 10-30-2023 End: 11-02-2023 Refill Cynthia Lou Chanel ALLIANCES 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 Work Phone: [facility] Comment on above: Shortness of breath; Chronic heart failure with preserved ejection fraction ([facility]) Start: 10-27-2023 End: 10-27-2023 ambulatory EUSEBIA HUERTAS Not Available Start: 10-21-2023 End: 10-21-2023 Refill Rajni Cardozo DO Work Phone: [facility] Start: 10-07-2023 End: 10-07-2023 Telephone encounter Daisha Marquez [facility] General Surgery Start: 10-06-2023 End: 10-06-2023 Refill Rajni Cardozo DO Work Phone: [facility] Comment on above: Spinal stenosis of l umbar region with neurogenic claudication (Primary Dx) Start: 10-02-2023 End: 10-02-2023 Refill Cynthia Dasha Buchanan ALLIANCES 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 Work Phone: [facility] Comment on above: Chronic heart failur e with preserved ejection fraction ([facility]); Atherosclerosis of [place] coronary artery of [place] heart without angina pectoris Start: 10-01-2023 End: 10-01-2023 Refill Monica Preston [facility] Comment on above: Closed wedge hailee teo fracture of T6 vertebra with routine healing Start: 09-30-2023 End: 09-30-2023 ambulatory RAJNI CARDOZO [facility] Start: 09-30-2023 End: 09-30-2023 Office outpatient visit 25 minutes Rajni Cardozo DO Work Phone: [facility] Comment on above: Closed wedge hailee teo fracture of T6 vertebra with routine healing (Primary Dx); Acute pulmonary embolism without acute cor pulmonale, unspecified pulmonary embolism type (CMS-HCC); Venous insufficiency of both lower extremities; Chronic respiratory failure with hypoxia and hypercapnia (CMS-HCC); Chronic heart failure with preserved ejection fraction (CMS-HCC); Spinal stenosis of lumbar region with neurogenic claudication; Peripheral polyneuropathy; B12 deficiency Start: 09-24-2023 End: 09-24-2023 Office outpatient visit 25 minutes Landy Kuns ALLIANCES CONSULTANT-ROUTER SETTER Work Phone: [facility] Comment on above: Flu-like symptoms (P rimary Dx); Community acquired pneumonia, unspecified laterality; Chronic heart failure with preserved ejection fraction (CMS-HCC) Start: 09-22-2023 End: 09-22-2023 Refill Monica Johnston [...] cor pulmonale, unspecified pulmonary embolism type (CMS-HCC); Spinal stenosis of lumbar region with neurogenic claudication Start: 08-17-2023 End: 08-17-2023 Telephone encounter Orders Support User Transcribe [facility] - Sleep Disorders Comment on above: Sleep Lab (Pap Order ) Start: 08-14-2023 End: 08-14-2023 Refill Génesis Jesus [facility] Comment on above: BONY (obstructive sle ep apnea) (Primary Dx); Hypoxemia associated with sleep Start: 08-13-2023 End: 08-14-2023 Telephone encounter Kaia Jovel MD Work Phone: [facility] Start: 08-11-2023 End: 08-11-2023 Clinical Support Grace Meadows DO Work Phone: [facility] Comment on above: BONY treated with BiP AP Start: 08-10-2023 End: 08-10-2023 Transitional care manage srvc 14 day discharge Rajni Cardozo DO Work Phone: [facility] [...] 08-06-2023 End: 08-06-2023 Telephone encounter Maryellen CASTRO [facility] Start: 07-31-2023 Telephone encounter Grace anderson DO Work Phone: [facility] Start: 07-25-2023 End: 07-27-2023 Evaluation and management of inpatient Mary Lock MD Work Phone: [facility] - Acute Care Comment on above: Chronic respiratory failure with hypoxia and hypercapnia (CMS- HCC) (Primary Dx); COPD exacerbation (CMS-HCC); Acute respiratory failure with hypoxia and hypercapnia (CMS-HCC); Hypoxia Start: 07-01-2023 End: 07-01-2023 Office outpatient visit 25 minutes Rajni Cardozo DO Work Phone: [facility] Comment on above: Fibromyalgia syndrom e (Primary Dx); Stage 3a chronic kidney disease (CMS-HCC); BONY treated with BiPAP; Chronic heart failure with preserved ejection fraction (CMS-HCC); Obesity (BMI 30-39.9) Start: 06-25-2023 Telephone encounter Grace anderson DO Work Phone: [facility] Comment on above: Sleep Lab (Split Nig ht) Start: 06-25-2023 End: 06-25-2023 Office outpatient visit 25 minutes Grace Meadows DO Work Phone: [facility] Comment on above: BONY treated with BiP AP (Primary Dx); Chronic obstructive pulmonary disease, unspecified COPD type (CMS-HCC); Shortness of breath; Cigarette nicotine dependence in remission Start: 06-01-2023 End: 06-01-2023 Transitional care manage srvc 7 day discharge Rajni Cardozo DO Work Phone: [facility] Comment on above: Chronic heart failur e with preserved ejection fraction (CMS- HCC) (Primary Dx); Bipolar disorder in partial remission, most recent episode unspecified type ([facility]); Atherosclerotic heart disease of [place] coronary artery with other forms of angina pectoris ([facility]); BMI 40.0-44.9, adult ([facility]); BONY treated with BiPAP Start: 05-18-2023 Orders Only Grace duncan DO Work Phone: [facility] Start: 04-28-2023 End: 04-30-2023 Evaluation and management of inpatient [facility] Start: 04-28-2023 End: 04-30-2023 Evaluation and management of inpatient [facility] Start: 04-23-2023 End: 04-30-2023 [facility] Start: 04-22-[facility]23 End: 04-30-2023 Evaluation and management of inpatient [facility] Start: 04-21-2023 End: 04-30-2023 Evaluation and management of inpatient [facility] Start: 04-20-2023 End: 04-30-2023 Evaluation and management of inpatient [facility] Start: 04-19-2023 End: 01-04-2024 Evaluation and management of inpatient PILO DOMÍNGUEZ [facility] Start: 04-18-2023 End: 04-30-2023 Evaluation and management of inpatient CEE [facility] Start: 04-17-2023 End: 04-30-2023 Evaluation and management of inpatient [facility] Start: 04-16-2023 End: 04-30-2023 Evaluation and management of inpatient [facility] Start: 04-15-2023 End: 04-30-2023 Evaluation and management of inpatient [facility] Start: 04-15-2023 End: 04-30-2023 Evaluation and management of inpatient WILBER FRASER [facility] Start: 04-15-2023 End: 04-29-2023 [facility] Start: 12-11-2022 Office outpatient ne w [address] [facility] Neurosurgery Start: 12-11-2022 End: 12-11-2022 ambulatory Myriam Fowler Facility:[facility] Start: 12-11-2022 End: 12-11-2022 ambulatory JEFFERSON Fowler Work Phone: [facility] Work Phone: Start: 12-11-2022 End: 12-11-2022 Patient encounter procedure JEFFERSON Fowler Work Phone: [facility]-X[facility] Work Phone: Start: 01-24-2022 End: 01-24-2022 ambulatory Kg Huerta Facility:[facility] Start: 01-07-2018 End: 01-07-2018 Emergency department patient visit Nadege Fernandez Facility:[facility] Procedures Date Procedure Procedure Detail Performing Clinician Start: 12-15-2024 Basic metabolic panel calcium total Rajni L Yushimas DO Work Phone: Start: 12-15-2024 Adult depression screening assessment Liz Norman RN Start: 11-28-2024 History of coronary artery bypass grafting History of four vessel coronary artery bypass graft Odessa Cook ALLIANCES 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 Work Phone: Start: 11-07-2024 Adult depression screening [...] Start: 01-26-2024 Arthrocentesis aspir&/inj major jt/bursa w/o Eusebia Huertas DO Work Phone: Start: 01-26-2024 Radex shoulder complete minimum 2 views Eusebia Agdleston DO Work Phone: Start: 01-14-2024 Follow-up visit Follow-up GRACE MEADOWS Start: 01-04-2024 Adult depression screening assessment Rajni Cardozo DO Work Phone: Start: 12-29-2023 Injection single/finish grinder trigger point 1/2 muscles Brittnee Deel ARRT Work Phone: Start: 12-29-2023 Radex spine 1 view specify level Eusebia Huertas DO Work Phone: Start: 11-02-2023 Adult depression screening assessment Rajni Cardozo DO Work Phone: Start: 09-30-2023 Adult depression screening assessment Rajni Cardozo DO Work Phone: Start: 09-24-2023 POCT INFLUENZA A/INFLUENZA B/SARS-COV-2 VERITOR Landy Kuns ALLIANCES CONSULTANT-ROUTER SETTER Work Phone: Start: 09-24-2023 Adult depression screening assessment Kacey Stephens ALLIANCES CONSULTANT-ROUTER SETTER Work Phone: Start: 09-09-2023 Adult depression screening [...] Treatment Date Care Activity Detail Author Start: 02-09-2026 Adult BMI Screening Adult BMI Screening [facility] Start: 02-09-2026 Tobacco Screening Tobacco Screening [facility] Start: 02-06-2026 Adult BMI Screening Adult BMI Screening [facility] Start: 02-06-2026 Tobacco Screening Tobacco Screening [facility] Start: 01-04-2026 Adult BMI Screening Adult BMI Screening [facility] Start: 01-04-2026 Tobacco Screening Tobacco Screening [facility] Start: 12-19-2025 Adult BMI Screening Adult BMI Screening [facility] Start: 12-19-2025 Tobacco Screening Tobacco Screening [facility] Start: 12-15-2025 Adult BMI Screening Adult BMI Screening [facility] Start: 12-15-2025 Depression Screening Depression Screening [facility] Start: 12-15-2025 Tobacco Screening Tobacco Screening [facility] Start: 11-28-2025 Adult BMI Screening Adult BMI Screening [facility] Start: 11-28-2025 Tobacco Screening Tobacco Screening [facility] Start: 11-07-2025 Adult BMI Screening Adult BMI Screening [facility] Start: 11-07-2025 Depression Screening Depression Screening [facility] Start: 11-07-2025 Tobacco Screening Tobacco Screening [facility] Start: 10-27-2025 Adult BMI Screening Adult BMI Screening [facility] Start: 10-27-2025 Depression Screening Depression Screening [facility] Start: 10-27-2025 Tobacco Screening Tobacco Screening [facility] Start: 10-07-2025 Adult BMI Screening Adult BMI Screening [facility] Start: 10-07-2025 Depression Screening Depression Screening [facility] Start: 09-01-2025 Adult BMI Screening Adult BMI Screening [facility] Start: 09-01-2025 Tobacco Screening Tobacco Screening [facility] Start: 07-07-2025 Adult BMI Screening Adult BMI Screening [facility] Start: 07-07-2025 Depression Screening Depression Screening [facility] Start: 07-07-2025 Tobacco Screening Tobacco Screening [facility] Start: 04-26-2025 Statin Use: Cardiovascular Statin Use: Cardiovascular [facility] Start: 04-26-2025 Statin Use: Diabetic Statin Use: Diabetic [facility] Start: 03-08-2025 End: 03-08-2025 Patient encounter procedure 03/08/2025 3:15 PM EST Off ice Visit [facility] [address] [place] [address] Sydnie Guerrero, [address] [place] [address] [facility] Start: 03-07-2025 Administration of varicella zoster vaccine Zoster (Shingles) Vaccine (1 of 2) [facility] Comment on above: Postponed from 2012 (Patient Refus ed) Start: 03-07-2025 Adult BMI Screening Adult BMI Screening [facility] Start: 03-07-2025 Tobacco Screening Tobacco Screening [facility] Start: 02-18-2025 Adult BMI Screening Adult BMI Screening [facility] Start: 02-18-2025 Screening for malignant neoplasm of cervix Pap Smear [facility] Start: 02-18-2025 Tobacco Screening Tobacco Screening [facility] Start: 02-08-2025 End: 02-08-2025 Patient encounter procedure 02/08/2025 1:30 PM EDT Off ice Visit [facility] Internal Medicine - Family Medicine [address] [facility] [place] [address] Rajni Cardozo, DO [address] [place] [address] [facility] Internal Medicine - Family Medicine Start: 02-06-2025 End: 02-06-2025 Patient encounter procedure 02/06/2025 3:30 PM EDT Off ice Visit [facility] [address] [place] [address] Risa Summers MD [address] [place] [address] [facility] Start: 01-13-2025 Adult BMI Screening Adult BMI Screening [facility] Start: 01-13-2025 Tobacco Screening Tobacco Screening [facility] Start: 01-04-2025 End: 01-04-2025 Admission to same day surgery center 01/04/2025 10:00 AM EDT - 01/04/2025 11:00 AM EDT Surgery [facility] Endoscopy [address] [facility] [place] [address] Rajni Cardozo, DO [address] [place] [address] ESOPHAGOGASTRODUODENOSCOPY DIAGNOSTIC [82111 (CPT )] [facility] Comment on above: ESOPHAGOGASTRODUODENOSCOPY DIAGNOSTIC [4 3235 (CPT )] Start: 01-04-2025 Subsequent hospital visit by physician 01/04/2025 10:00 AM EDT Hospital Encounter [facility] - Endoscopy [address] [facility] [place] [address] Rajni Cardozo, DO [address] [place] [address] [facility] Endoscopy Start: 01-04-2025 End: 01-04-2025 Esophagogastroduodenoscopy transoral diagnostic [facility] Start: 01-03-2025 End: 01-03-2025 ambulatory 01/03/2025 3:50 PM EDT Support Visit [facility] Admit [address] [facility] [place] [address] [facility] Admit Start: 01-03-2025 Adult BMI Screening Adult BMI Screening [facility] Start: 01-03-2025 Depression Screening Depression Screening [facility] Start: 01-03-2025 Tobacco Screening Tobacco Screening [facility] Start: 12-21-2024 End: 12-21-2024 Patient encounter procedure 12/21/2024 7:30 AM EDT Appointment [facility] - Cardiovascular [address] [facility] [place] [phone] Odessa Cook, ALLIANCES 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 [address] [facility] [place] [address] [facility] Cardiovascular Start: 12-20-2024 End: 12-20-2024 Admission to same day surgery center 12/20/2024 10:00 AM EDT - 12/20/2024 11:00 AM EDT Surgery [facility] - Endoscopy [address] [place] [address] Rajni Cardozo, DO [address] [place] [address] ESOPHAGOGASTRODUODENOSCOPY DIAGNOSTIC [84143 (CPT )] [facility] Comment on above: ESOPHAGOGASTRODUODENOSCOPY DIAGNOSTIC [4 3235 (CPT )] Start: 12-20-2024 End: 12-20-2024 Esophagogastroduodenoscopy transoral diagnostic ESOPHAGOGASTRODUODENOSCOPY DIAGNOSTIC microcytic anemia 12/20/2024 10:00 AM EDT [facility] Start: 12-20-2024 Subsequent hospital visit by physician 12/20/2024 10:00 AM EDT Hospital Encounter [facility] - Endoscopy [address] [place] [address] Rajni Cardozo, DO [address] [facility] [place] [address] [facility] Endoscopy Start: 12-19-2024 End: 12-19-2024 ambulatory 12/19/2024 2:40 PM EDT Support Visit [facility] - Pre Admit [address] [facility] [address] [facility] - Pre Admit Start: 12-16-2024 Adult BMI Screening Adult BMI Screening [facility] Start: 12-16-2024 Tobacco Screening Tobacco Screening [facility] Start: 12-08-2024 End: 12-08-2024 ambulatory 12/08/2024 9:00 AM EDT Lab [facility] - Lab [address] [place] [address] [facility] Lab Start: 12-07-2024 Adult BMI Screening Adult BMI Screening [facility] Start: 12-07-2024 End: 12-07-2024 Patient encounter procedure 12/07/2024 2:00 PM EDT Off ice Visit [facility] Internal Medicine - Family Medicine [address] [facility] [place] [address] Rajni Cardozo, DO [address] [place] [address] [facility] - Family Medicine Start: 12-07-2024 Tobacco Screening Tobacco Screening [facility] Start: 12-06-2024 Adult BMI Screening Adult BMI Screening [facility] Start: 12-06-2024 End: 12-06-2024 Patient encounter procedure 12/06/2024 10:30 AM EDT Appointment [facility] [address] [place] [address] [facility] Start: 11-28-2024 End: 11-28-2025 Echo complete W/O contrast Echo complete W/O contrast Echocardiography Routine Chronic heart failure with preserved ejection fraction (CMS-HCC) Pulmonary hypertension ([facility]) Nonrheumatic tricuspid valve regurgitation Essential hypertension Atherosclerosis of [place] coronary artery of [place] heart without angina pectoris History of four vessel coronary artery bypass graft NSTEMI (non-ST elevated myocardial infarction) ([facility]) Expected: 11/28/2024, Expires: 11/28/2025 [facility] Comment on above: Expected: 11/28/2024, Expires: Start: 11-28-2024 End: 11-28-2024 Patient encounter procedure 11/28/2024 2:00 PM EDT Off ice Visit [facility] [address] [place] [phone] Odessa Cook, ALLIANCES 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 [address] [place] [address] [facility] Start: 11-07-2024 End: 11-07-2024 Patient encounter procedure 11/07/2024 2:30 PM EDT Off ice Visit [facility] - [facility] Medicine [address] [place] [address] Rajni Cardozo DO [address] [facility] [place] [address] [facility] - Family Medicine Start: 11-07-2024 End: 11-07-2025 XR Knee - right 3 Views X-ray knee right 3 views Imaging Routine Patellar tendinitis of right knee Expected: 11/07/2024, Expires: 11/07/2025 [facility] Work Phone: Comment on above: Expected: 11/07/2024, Expires: Start: 11-02-2024 End: 11-02-2024 Patient encounter procedure 11/02/2024 8:30 AM EDT Appointment [facility] Radiology [address] [place] [address] [facility] Radiology Start: 11-01-2024 End: 11-01-2024 Patient encounter procedure 11/01/2024 4:30 PM EDT Appointment [facility] [address] [place] [address] Cervicogenic headache [facility] Comment on above: Cervicogenic headache Start: 11-01-2024 Adult BMI Screening Adult BMI Screening [facility] Start: 11-01-2024 Depression Screening Depression Screening [facility] Start: 11-01-2024 Tobacco Screening Tobacco Screening [facility] Start: 10-27-2024 End: 10-27-2025 RF Gastrointestinal tract upper Views W air contrast PO and W barium contrast PO Fluoroscopy upper GI with esophagus Imaging Routine Nausea and vomiting, unspecified vomiting type Expected: 10/27/2024, Expires: 10/27/2025 [facility] Comment on above: Expected: 10/27/2024, Expires: Start: 10-19-2024 Adult BMI Screening Adult BMI Screening [facility] Start: 10-19-2024 Tobacco Screening Tobacco Screening [facility] Start: 10-07-2024 End: 10-07-2024 Patient encounter procedure 10/07/2024 11:30 AM EDT Office Visit [facility] Internal Medicine - Family Medicine [address] [place] [address] Rajni Cardozo, DO [address] [place] [address] [facility] Start: 09-29-2024 Adult BMI Screening Adult BMI Screening [facility] Start: 09-29-2024 Depression Screening Depression Screening [facility] Start: 09-29-2024 Tobacco Screening Tobacco Screening [facility] Start: 09-23-2024 Adult BMI Screening Adult BMI Screening [facility] Start: 09-23-2024 Depression Screening Depression Screening [facility] Start: 09-23-2024 Tobacco Screening Tobacco Screening [facility] Start: 09-21-2024 End: 09-21-2024 Patient encounter procedure 09/21/2024 3:00 PM EDT Off ice Visit [facility] [address] [place] [address] Sydnie Guerrero, DO [address] [place] [address] Arrived [facility] Comment on above: Arrived Start: 09-17-2024 Adult BMI Screening Adult BMI Screening [facility] Start: 09-08-2024 Adult BMI Screening Adult BMI Screening [facility] Start: 09-08-2024 Depression Screening Depression Screening [facility] Start: 09-08-2024 Tobacco Screening Tobacco Screening [facility] Start: 08-10-2024 Adult BMI Screening Adult BMI Screening [facility] Start: 08-10-2024 Tobacco Screening Tobacco Screening [facility] Start: 08-09-2024 Adult BMI Screening Adult BMI Screening [facility] Start: 08-09-2024 Depression Screening Depression Screening [facility] Start: 08-09-2024 Tobacco Screening Tobacco Screening [facility] Start: 08-02-2024 Adult BMI Screening Adult BMI Screening [facility] Start: 08-02-2024 Tobacco Screening Tobacco Screening [facility] Start: 07-26-2024 Adult BMI Screening Adult BMI Screening [facility] Start: 07-24-2024 Tobacco Screening Tobacco Screening [facility] Start: 06-30-2024 Adult BMI Screening Adult BMI Screening [facility] Start: 06-30-2024 Depression Screening Depression Screening [facility] Start: 06-30-2024 Tobacco Screening Tobacco Screening [facility] Start: 06-29-2024 End: 06-29-2024 Patient encounter procedure 06/29/2024 3:00 PM EST Off ice Visit [facility] [address] [place] [address] Sydnie Guerrero, DO [address] [place] [address] [facility] Start: 06-24-2024 Adult BMI Screening Adult BMI Screening [facility] Start: 06-24-2024 Tobacco Screening Tobacco Screening [facility] Start: 06-08-2024 End: 06-08-2024 Patient encounter procedure 06/08/2024 1:00 PM EST [facility] [address] [place] [address] Rajni Cardozo, [address] [place] [address] [facility] - [facility] Start: 06-01-2024 Adult BMI Screening Adult BMI Screening [facility] Start: 06-01-2024 Depression Screening Depression Screening [facility] Start: 06-01-2024 Tobacco Screening Tobacco Screening [facility] Start: 04-29-2024 Adult BMI Screening Adult BMI Screening [facility] Start: 04-29-2024 Tobacco Screening Tobacco Screening [facility] Start: 03-17-2024 End: 03-17-2024 Patient encounter procedure 03/17/2024 1:00 PM EST Consult [facility] [address] [place] [address] Sydnie Guerrero, DO [address] [place] [address] Arrived [facility] Comment on above: Arrived Start: 03-10-2024 End: 03-10-2024 Patient encounter procedure 03/10/2024 3:00 PM EST Off ice Visit [facility] Pul[facility] [address] [place] [address] Grace Meadows, [address] [facility] [address] [place] [address] [facility] Start: 03-07-2024 End: 03-07-2024 Patient encounter procedure 03/07/2024 1:00 PM EST Off ice Visit [facility] Internal Medicine - Family Medicine [address] [place] [address] Rajni Cardozo DO [address] [place] [address] [facility] - Family [facility] Start: 02-19-2024 End: 02-19-2024 Patient encounter procedure 02/19/2024 10:45 AM EDT Office Visit [facility] Cardiology [address] [facility] [address] [place] [phone] Alex Amos MD [address] [place] [address] Myriam Giles MD [address] [place] [address] [facility] Start: 02-09-2024 End: 02-09-2024 Patient encounter procedure 02/09/2024 1:30 PM EDT Off ice Visit [facility] [address] [facility] [address] [place] [address] Aleksandar, Eusebia A, DO [address] [facility] [address] [place] [address] [facility] Start: 01-21-2024 End: 01-21-2024 Patient encounter procedure 01/21/2024 10:00 AM EDT Office Visit [facility] [address] [facility] [place] [address] Grace Meadows, DO [address] [address] [facility] Start: 01-19-2024 End: 01-19-2024 Patient encounter procedure [facility] Start: 01-14-2024 End: 01-14-2024 Patient encounter procedure 01/14/2024 3:00 PM EDT Off ice Visit [facility] [address] [facility] [place] [address] Grace Meadows, DO [address] [address] [facility] Start: 01-12-2024 End: 01-12-2024 Patient encounter procedure 01/12/2024 10:45 AM EDT Office Visit [facility] [address] [facility] [address] [place] [address] Eusebia Huertas, DO [address] [facility] [address] [place] [address] [facility] Start: 01-04-2024 End: 01-04-2024 Patient encounter procedure 01/04/2024 1:00 PM EDT Off ice Visit [facility] - Family Medicine [address] [facility] [place] [address] Rajni Cardozo, DO [address] [facility] [place] [address] [facility] - Family Medicine Start: 12-29-2023 End: 12-29-2023 Patient encounter procedure 12/29/2023 10:45 AM EDT Office Visit [facility] [address] [facility] [address] [place] [address] Eusebia Huertas, [address] [facility] [address] [place] [address] Compression fracture of T6 vertebra with routine [...] encounter Start: 12-27-2023 Influenza vaccination Influenza Vaccine [facility] Start: 12-07-2023 End: 12-07-2023 Clinical Support 12/07/2023 8:00 PM EDT Clinical Support [facility] - Sleep Disorders [address] [place] [address] [facility] [place] [address] Grace Meadows, DO [address] [address] [facility] Sleep Disorders Start: 12-03-2023 End: 12-03-2023 Patient encounter procedure 12/03/2023 10:00 AM EDT Office Visit [facility] [place] [address] Grace Meadows, DO [address] [address] [facility] Start: 11-02-2023 End: 11-02-2023 Patient encounter procedure 11/02/2023 3:30 PM EDT Off ice Visit [facility] Internal Medicine - Family Medicine [address] [place] [address] Rajni Cardozo, DO [address] [place] [address] [facility] Internal Medicine - Family Medicine Start: 10-06-2023 End: 10-06-2023 Patient encounter procedure [facility] - Mammogram DEXA Start: 09-30-2023 End: 09-30-2023 Patient encounter procedure 09/30/2023 1:30 PM EDT Off ice Visit [facility] Internal Medicine - Family Medicine [address] [place] [address] Rajni Cardozo, DO [address] [place] [address] [facility] - Family Medicine Start: 09-11-2023 End: 09-11-2023 Patient encounter procedure 09/11/2023 1:00 PM EDT Appointment [facility] [place] [facility] [address] [place] [address] [facility] [place] [facility] Start: 09-10-2023 End: 09-10-2023 Patient encounter procedure [facility] - Vascular Start: 09-10-2023 End: 09-10-2023 Patient encounter procedure 09/10/2023 8:15 AM EDT Appointment [facility] - MRI Imaging [address] [place] [address] Rajni Cardozo, DO [address] [place] [address] [facility] - MRI Imaging Start: 09-09-2023 End: 09-09-2023 Patient encounter procedure 09/09/2023 1:00 PM EDT Off ice Visit [facility] Internal Medicine - Family Medicine [address] [place] [place] [address] Rajni Cardozo, DO [address] [place] [address] [facility] - Family Medicine Start: 08-11-2023 End: 08-11-2023 Clinical Support 08/11/2023 8:00 PM EDT Clinical Support [facility] - Sleep Disorders [address] [place] [address] Grace Meadows, DO [address] [place] [id number] [facility] Sleep Disorders Start: 08-10-2023 End: 08-10-2023 Patient encounter procedure 08/10/2023 1:00 PM EDT Off ice Visit [facility] - Family Medicine [address] [facility] [place] [address] Rajni Cardozo, DO [address] [place] [address] [facility] - Family [facility] Start: 08-03-2023 End: 08-03-2023 Patient encounter procedure 08/03/2023 10:00 AM EDT Office Visit [facility] [address] [place] [address] Cynthia Buchanan, ALLIANCES 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 [address] [place] [address] [facility] Start: 07-27-2023 End: 07-27-2023 Patient encounter procedure 07/27/2023 8:30 AM EDT Off ice Visit [facility] [address] [place] [address] Cynthia Buchanan, ALLIANCES 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 [address] [place] [address] [facility] Failure [facility] Start: 07-01-2023 End: 07-01-2023 Patient encounter procedure [facility] - Pulmonary Function Start: 06-29-2023 End: 06-29-2023 Patient encounter procedure 06/29/2023 12:00 PM EST [facility] [address] [place] [address] Rajni Cardozo, DO [address] [place] [address] [facility] - Family Medicine Start: 06-25-2023 End: 06-25-2023 Patient encounter procedure 06/25/2023 10:00 AM EST Office Visit [facility]Sleep Medicine [facility] [place] [address] Grace Meadows, DO [address] [id number] [facility] Start: 06-01-2023 End: 06-01-2023 Patient encounter procedure 06/01/2023 1:30 PM EST Off ice Visit [facility] - Family Medicine [address] [place] [address] Rajni Cardozo, DO [address] [place] [address] [facility] Start: 12-26-2022 Influenza vaccination Influenza Vaccine [facility] Start: 08-06-2021 Depression Screening Depression Screening [facility] Start: 2012 Administration of varicella zoster vaccine Zoster (Shingles) Vaccine (1 of 2) [facility] Start: 1981 Administration of varicella zoster vaccine Zoster (Shingles) Vaccine (1 of 2) [facility] Start: 1981 DTaP,Tdap and Td Vaccines (1 - Tdap) DTaP,Tdap and Td Vaccines (1 - Tdap) [facility] Start: 1980 Adult BMI Follow Up Plan Adult BMI Follow Up Plan [facility] Start: 1980 Diabetic foot examination Diabetic Foot Exam [facility] Start: 1962 Glaucoma screening Diabetic Ophthalmology Exam [facility] Start: 1962 Statin Use: Cardiovascular Statin Use: Cardiovascular [facility] Start: 1962 Statin Use: Diabetic Statin Use: Diabetic [facility] Start: 1962 Tobacco Counseling Tobacco Counseling [facility] Bacteria identified in Blood by Aerobe culture [facility] Work Phone: End: 11-01-2024 Basic metabolic 2000 panel - Serum or Plasma Basic Metabolic Panel Lab Routine Chronic heart failure with preserved ejection fraction ([facility]) 1 Occurrences starting 11/02/2023 until 11/01/2024 [facility] [employer] Comment on above: 1 Occurrences starting 11/02/2023 until 11/01/2024 End: 11-28-2025 Basic metabolic 2000 panel - Serum or Plasma Basic Metabolic Panel Lab Routine Chronic heart failure with preserved ejection fraction ([facility]) Pulmonary hypertension ([facility]) Nonrheumatic tricuspid valve regurgitation Essential hypertension Atherosclerosis of [place] coronary artery of [place] heart without angina pectoris History of four vessel coronary artery bypass graft NSTEMI (non-ST elevated myocardial infarction) ([facility]) 1 Occurrences starting 11/28/2024 until 11/28/2025 [employer] Work Phone: Comment on above: 1 Occurrences starting 11/28/2024 until 11/28/2025 End: 11-30-2025 Basic metabolic 2000 panel - Serum or Plasma Basic Metabolic Panel Lab Routine Chronic heart failure with preserved ejection fraction ([facility]) Essential hypertension Pulmonary hypertension ([facility]) Nonrheumatic tricuspid valve regurgitation Atherosclerosis of [place] coronary artery of [place] heart without angina pectoris History of four vessel coronary artery bypass graft 1 Occurrences starting 11/30/2024 until 11/30/2025 [employer] Work Phone: Comment on above: 1 Occurrences starting 11/30/2024 until 11/30/2025 End: 02-06-2026 Basic metabolic 2000 panel - Serum or Plasma Basic Metabolic Panel Lab Routine Chronic diastolic heart failure ([facility]) Pulmonary hypertension ([facility]) Nonrheumatic tricuspid valve regurgitation 1 Occurrences starting 02/06/2025 until 02/06/2026 [employer] Work Phone: Comment on above: 1 Occurrences starting 02/06/2025 until 02/06/2026 End: 11-01-2024 CBC W Auto Differential panel - Blood CBC auto differential Lab Routine Chronic heart failure with preserved ejection fraction ([facility]) 1 Occurrences starting 11/02/2023 until 11/01/2024 [employer] Work Phone: Comment on above: 1 Occurrences starting 11/02/2023 until 11/01/2024 End: 07-07-2025 CBC W Auto Differential panel - Blood CBC auto differential Lab Routine Stage 3a chronic kidney disease ([facility]) 1 Occurrences starting 07/07/2024 until 07/07/2025 [employer] Work Phone: Comment on above: 1 Occurrences starting 07/07/2024 until 07/07/2025 End: 07-07-2025 Comprehensive metabolic 2000 panel - Serum or Plasma Comprehensive metabolic panel Lab Routine Stage 3a chronic kidney disease ([facility]) 1 Occurrences starting 07/07/2024 until 07/07/2025 [employer] Comment on above: 1 Occurrences starting 07/07/2024 until 07/07/2025 End: 11-01-2024 Cyanocobalamin vitamin b-12 Vitamin B12 Lab Routine B1 2 deficiency 1 Occurrences starting 11/02/2023 until 11/01/2024 [employer] Comment on above: 1 Occurrences starting 11/02/2023 until 11/01/2024 End: 07-07-2025 Cyanocobalamin vitamin b-12 Vitamin B12 Lab Routine B1 2 deficiency 1 Occurrences starting 07/07/2024 until 07/07/2025 [employer] Comment on above: 1 Occurrences starting 07/07/2024 until 07/07/2025 End: 12-15-2025 Esophagogastroduodenoscopy EGD GI Routine Microcytic anemia Gastro-esophageal reflux disease without esophagitis 1 Occurrences starting 12/15/2024 until 12/15/2025 [employer] Work Phone: Comment on above: 1 Occurrences starting 12/15/2024 until 12/15/2025 Esophagogastroduoden oscopy transoral diagnostic ESOPHAGOGASTRODUODENOSCOPY DIAGNOSTIC Microcytic anemia [facility] End: 07-07-2025 Hemoglobin A1c/Hemoglobin.total in Blood Hemoglobin A1c Lab Routine IFG (impaired fasting glucose) 1 Occurrences starting 07/07/2024 until 07/07/2025 [employer] Comment on above: 1 Occurrences starting 07/07/2024 until 07/07/2025 End: 10-27-2025 Hemoglobin A1c/Hemoglobin.total in Blood Hemoglobin A1c Lab Routine Type 2 diabetes mellitus with stage 3a chronic kidney disease, without long-term current use of insulin ([facility]) 1 Occurrences starting 10/27/2024 until 10/27/2025 [employer] Work Phone: Comment on above: 1 Occurrences starting 10/27/2024 until 10/27/2025 Hemoglobin A1c/Hemoglobin.total in Blood Hemoglobin A1c Lab Routine Type 2 diabetes mellitus with stage 3a chronic kidney disease, without long-term current use of insulin ([facility]) 10/27/2024 4:57 PM EDT [employer] End: 07-07-2025 Lipid 1996 panel - Serum or Plasma Lipid profile Lab Routine Atherosclerotic heart disease of [place] coronary artery with other forms of angina pectoris ([facility]) 1 Occurrences starting 07/07/2024 until 07/07/2025 [employer] Comment on above: 1 Occurrences starting 07/07/2024 until 07/07/2025 End: 11-01-2024 Magnesium [Mass/volume] in Serum or Plasma Magnesium Lab Routine Chronic heart failure with preserved ejection fraction ([facility]) 1 Occurrences starting 11/02/2023 until 11/01/2024 [employer] Comment on above: 1 Occurrences starting 11/02/2023 until 11/01/2024 End: 08-13-2024 Polysomnography 4 or more parameters with PAP titration Polysomnography 4 or more parameters with PAP titration Sleep Center Routine BONY (obstructive sleep apnea) Hypoxemia associated with sleep 1 Occurrences starting 08/14/2023 until 08/13/2024 [employer] Work Phone: Comment on above: 1 Occurrences starting 08/14/2023 until 08/13/2024 End: 06-24-2024 Pulmonary function test Spirometry (Flow Volume Loop) pre/post short acting bronchodilator w/ DLCO (diffusion study) Pulmonary function test Spirometry (Flow Volume Loop) pre/post short acting bronchodilator w/ DLCO (diffusion study) PFT Routine Chronic obstructive pulmonary disease, unspecified COPD type ([facility]) 1 Occurrences starting 06/25/2023 until 06/24/2024 [employer] Comment on above: 1 Occurrences starting 06/25/2023 until 06/24/2024 End: 06-24-2024 Split Night Sleep Study Split Night Sleep Study [facility] Routine BONY treated with BiPAP 1 Occurrences starting 06/25/2023 until 06/24/2024 [employer] Work Phone: Comment on above: 1 Occurrences starting 06/25/2023 until 06/24/2024 Immunizations Immunization Date Immunization Notes Care Provider [facility] 05-12-2023 tuberculin skin test ; purified protein derivative solution, intradermal Sydnie Cesar DO Work Phone: [facility] 05-12-2023 tuberculin skin test ; unspecified formulation Kacey Sims RN [employer] 04-30-2023 tuberculin skin test ; purified protein derivative solution, intradermal Sydnie Cesar DO Work Phone: [facility] 04-30-2023 tuberculin skin test ; unspecified formulation Kacey Sims RN [facility] Payers Date Payer Category Payer Medicare [id number] 2024 Unknown 2023 Medicare (Managed Care) 1.2. [id number] 2023 Medicare HMO [id number] 2023 Medicare [id number] 2023 Private Health Insurance 2022 Self-pay [id number] 2021 Medicare [id number]. [id number] .[id number] 2021 Private Health Insurance [id number] 2019 Medicaid [id number]. [id number] .[id number] 2019 Medicaid [id number] 2018 Medicare [id number] 1962 Unknown [id number] 2.16.840.1.446263.3.579.2.1 286 1962 Unknown [id number] 2.16.840.1.391474.3.579.2.1 286 1962 Unknown [id number] 2.16.840.1.012168.3.579.2.1 286 1962 Unknown [id number] 2.16.840.1.869848.3.579.2.1 286 1962 Unknown [id number] 2.16.840.1.260093.3.579.2.1 286 1962 Unknown [id number] 2.16.840.1.595038.3.579.2.1 286 1962 Unknown [id number] 2.16.840.1.519751.3.579.2.1 286 1962 Unknown [id number] 2.16.840.1.837230.3.579.2.1 286 1962 Unknown [id number] 2.16.840.1.653708.3.579.2.1 286 1962 Unknown [id number] 2.16.840.1.393575.3.579.2.1 286 1962 Unknown [id number] 2.16.840.1.574405.3.579.2.1 286 1962 Unknown [id number] 2.16.840.1.859268.3.579.2.1 286 1962 Unknown [id number] 2.16.840.1.901010.3.579.2.1 286 1962 Unknown [id number] 2.16.840.1.459759.3.579.2.1 286 1962 Unknown [id number] 2.16.840.1.454951.3.579.2.1 286 1962 Unknown [id number] 2.16.840.1.675677.3.579.2.1 286 1962 Unknown [id number] 2.16.840.1.190577.3.579.2.1 286 1962 Unknown [id number] 2.16.840.1.703354.3.579.2.1 286 1962 Unknown [id number] 2.16.840.1.937262.3.579.2.1 286 1962 Unknown [id number] 2.16.840.1.248088.3.579.2.1 286 1962 Unknown [id number] 2.16.840.1.751911.3.579.2.1 259 1962 Unknown [id number] 2.16.840.1.118486.3.579.2.1 259 1962 Unknown [id number] 2.16.840.1.820923.3.579.2.1 259 1962 Unknown [id number] 2.16.840.1.608492.3.579.2.1 259 1962 Unknown [id number] 2.16.840.1.394689.3.579.2.1 259 1962 Unknown [id number] 2.16.840.1.314732.3.579.2.1 259 1962 Unknown [id number] 2.16.840.1.743510.3.579.2.1 259 1962 Unknown [id number] 2.16.840.1.703936.3.579.2.1 259 1962 Unknown [id number] 2.16.840.1.782531.3.579.2.1 259 1962 Unknown [id number] 2.16.840.1.341722.3.579.2.1 259 1962 Unknown [id number] 2.16.840.1.011907.3.579.2.1 286 1962 Unknown [id number] 2.16.840.1.511629.3.579.2.1 286 1962 Unknown [id number] 2.16.840.1.868865.3.579.2.1 286 1962 Unknown [id number] 2.16.840.1.260214.3.579.2.1 286 1962 Unknown [id number] 2.16.840.1.612177.3.579.2.1 286 1962 Unknown [id number] 2.16.840.1.344610.3.579.2.1 286 1962 Unknown [id number] 2.16.840.1.964305.3.579.2.1 286 1962 Unknown [id number] 2.16.840.1.550317.3.579.2.1 286 1962 Unknown [id number] 2.16.840.1.248074.3.579.2.1 286 1962 Unknown [id number] 2.16.840.1.853932.3.579.2.1 96 1962 Unknown [id number] 2.16.840.1.653015.3.579.2.1 96 1962 Unknown [id number] 2.16.840.1.205462.3.579.2.1 96 1962 Unknown [id number] 2.16.840.1.363391.3.579.2.1 96 1962 Unknown [id number] 2.16.840.1.308261.3.579.2.1 96 1962 Unknown [id number] 2.16.840.1.822242.3.579.2.1 286 1962 Unknown [id number] 2.16.840.1.200699.3.579.2.1 286 1962 Unknown [id number] 2.16.840.1.246318.3.579.2.1 286 1962 Unknown [id number] 2.16.840.1.411363.3.579.2.1 286 1962 Unknown [id number] 2.16.840.1.958192.3.579.2.1 286 1962 Unknown [id number] 2.16.840.1.788172.3.579.2.1 286 1962 Unknown [id number] 2.16.840.1.916728.3.579.2.1 286 1962 Unknown [id number] 2.16.840.1.711950.3.579.2.1 286 1962 Unknown [id number] 2.16.840.1.090048.3.579.2.1 286 1962 Unknown [id number] 2.16.840.1.978416.3.579.2.1 286 1962 Unknown [id number] 2.16.840.1.869452.3.579.2.1 286 1962 Unknown [id number] 2.16.840.1.886144.3.579.2.1 286 1962 Unknown [id number] 2.16.840.1.222962.3.579.2.1 286 1962 Unknown [id number] 2.16.840.1.819837.3.579.2.1 286 1962 Unknown [id number] 2.16.840.1.327392.3.579.2.1 286 1962 Unknown [id number] 2.16.840.1.823843.3.579.2.1 286 1962 Unknown [id number] 2.16.840.1.470670.3.579.2.1 286 1962 Unknown [id number] 2.16.840.1.830082.3.579.2.1 286 1962 Unknown [id number] 2.16.840.1.198651.3.579.2.1 286 Medicaid Medicaid Out of State [id number] Medicare [id number] 2.16.840.1.172657.19 Medicare [id number] Unknown [id number] 2.16.840.1.436738.3.579.2.5 31 Unknown [id number] 2.16.840.1.325467.3.579.2.5 31 Social History Date Type Detail Facility Start: 09-25-1981 End: 09-25-2021 Tobacco smoking status [facility] Smoker (finding) [facility] Start: 1960 Sex Assigned At Female [facility] Start: 07-25-2023 End: 01-22-2024 Sex Assigned At [facility] Start: 09-24-2023 End: 01-22-2024 Tobacco smoking status [facility] Ex-smoker [facility] Start: 09-25-1981 End: 09-25-2021 History of tobacco use Cigarette Smoker [facility] Start: 01-22-2024 End: 09-21-2024 Tobacco use and exposure Former smokeless tobacco user [facility] Start: 01-22-2024 End: 12-04-2024 Alcoholic beverage intake Ex-drinker (finding) [facility] Start: 07-25-2023 End: 01-22-2024 History of Social function [facility] Start: 1960 Sex assigned at Not on file [facility] Start: 09-25-1981 End: 03-17-2024 Tobacco smoking status [facility] Smokes tobacco daily [facility] Start: 08-11-2023 End: 09-24-2023 Tobacco use and exposure Smokeless tobacco non-user [facility] Has the [employer], or [employer] threatened to shut off services in your home in past 12Mo No [facility] Are you now , , , , never or living with a partner? [facility] How often to you hav e a drink containing alcohol? Never [facility] Start: 07-09-2022 How many standard drinks containing alcohol do you have on a typical day? Patient does not drink [facility] How hard is it for y ou to pay for the very basics like food, housing, medical care, and heating Somewhat hard [facility] Do you feel stress - tense, restless, nervous, or anxious, or unable to sleep at night because your mind is troubled all the time - these days [OSQ] Only a little [facility] Start: 02-13-2022 Tobacco Comment 5-6 cigerettes a day [facility] Start: 07-25-2023 Alcohol Comment last use 15 years ago [facility] Start: 02-16-2017 Sex Female (finding) [facility] Start: 09-03-2020 Gender identity Identifies as female gender (finding) [facility] Start: 03-28-2023 Sexual orientation Heterosexual (finding) [facility] History of tobacco use Chews Tobacco [facility] Start: 04-29-2023 End: 07-01-2023 Alcohol intake Current non-drinker of alcohol (finding) [facility] How hard is it for y ou to pay for the very basics like food, housing, medical care, and heating Not very hard [facility] Medical Equipment Procedure Code Equipment Code Equipment Origin al Text Equipment Identifier Dates Sj Xience Sierr a 2.75x28 Rx - [id number] FDA Start: 01-09-2020 Sj obregon 2.75x8 Rx - [id number] FDA Start: 01-09-2020 Goals Date Patient [...] goal Functional Status Date Assessment Result Facility [employer] [facility] Clinical Notes 12-11-2022 to 02-08-2025 Telephone Encounter - Magali Kelly - 02/08/2025 11:19 AM EDTTelephone Encounter - Magali Kelly - 02/08/2025 11:19 AM Elbert Summers MD - 02/06/2025 3:30 PM EDTPatient InstructionsPatient Instructions Note Date & Type Note Facility 02-08-2025 Telephone encounter Note Hi, this is to be cool calling for Dr Cruz. I really need to move my appointment up as soon as possible. My phone number [phone]. My date is 124 3. Thank you. Patient would like to move appointment up attempted to return call but was unable to reach patient. Correction, patient returned call,, Pt is willing to travel to [place], She states that BiPap is not working correctly . [employer] is the company she uses for her bi pap, and was told nothing wrong, that pt must be using the mask wrong. She would like to move her appt up. [facility] 02-08-2025 Miscellaneous Notes Hi, this is to be cool calling for Dr Cruz. I really need to move my appointment up as soon as possible. My phone number [phone]. My date is 124 3. Thank you. Patient would like to move appointment up attempted to return call but was unable to reach patient. Correction, patient returned call,, Pt is willing to travel to [place], She states that BiPap is not working correctly . [employer] is the company she uses for her bi pap, and was told nothing wrong, that pt must be using the mask wrong. She would like to move her appt up. documented in this encounter [facility] 02-06-2025 History of Presen t illness Narrative Images from the original note were not included. [facility] Patient: Monet Recinos Date of : 1960 Age: 64 y.o. Date of Encounter: 02/06/2025 REASON FOR VISIT: Chronic heart failure. Dear Rajni Cardozo Jr, DO We had the pleasure of seeing your patient, Monet Recinos, in the [facility] on 02/06/2025. Ms. Recinos is [...] additional diuretics as she did yesterday. She logs her vitals daily and her blood pressure recently [...] walks as a method of exercise which has helped her lose the weight. She was admitted in November of the hospital with hypercapnic respiratory failure with pCO2 levels of 100 mmHg required BiPAP support with the improvement in her CO2 levels. She did not require IV diuresis. She underwent EGD for anemia evaluation as an outpatient Current medical therapy for heart failure includes torsemide 30 mg daily, Toprol-XL 25 mg daily and empagliflozin 10 mg daily. She is no longer [...] enlargement, trace AI, trace to mild MR, ybec-ma-xxqswilf TR, RVSP 44 mmHg PFT 07/01/2023: FEV 1 1.69 [...] mouth in the morning. 90 tablet 3 rbymoogdpb-yaqetnxy-vszhqpzbnw (BREZTRI AEROSPHERE) 160-9-4.8 mcg/actuation HFA aerosol inhaler [...] 1 tablet before bedtime. 60 tablet 2 fkabfz-fbkdpaube-kot,al-simeth (FIRST-MOUTHWASH BLM) 89-597-110-40 mg/30mL mouthwash Take 5 mL by mouth [...] flush 3 mL 3 mL intravenous PRN Rajni Cardozo DO ALLERGIES Allergies Allergen Reactions Penicillins Anaphylaxis Other [...] lb 1.6 oz) SpO2 97% BMI 35.14 kg/m Last 3 Weight Readings 02/06/25 1210 Weight: 108 kg (238 lb 1.6 oz) Body mass index is 35.14 kg/m . No data recorded Supplemental O2: LAST 3 RECORDED WEIGHTS Last 3 Weight Readings 02/06/25 1210 Weight: 108 kg (238 lb 1.6 oz) Body mass index is 35.14 kg/m . PHYSICAL EXAM General appearance: Alert [...] failure/COPD, on oxygen; follows with pulmonology at [facility] History of PE Iron-deficiency anemia, underwent workup Chronic kidney disease, stage III Obstructive sleep apnea, on BiPAP Bipolar disorder, on lithium Chronic tobacco use Obesity, with a BMI of 36 PLAN Overall, she has had improvement in her symptoms and appears mildly hypervolemic on exam today. She has a good understanding of her issues and how to deal with them. Increase torsemide to 40 mg daily Resume spironolactone 25 g daily Start valsartan 40 mg daily to get her blood pressure under goal. Continue Jardiance. Guideline-Directed Medical Therapy Beta Georgi: Toprol-XL 25 mg daily ACEi / ARB [...] risk factor modification) and coordination of care. 02/06/2025 Risa Summers M.D., [facility], [facility] Heart Failure Clinics [address] [facility] [address] [place] [address] Fax This note was completed using a voice head of measurement & insights system. Every effort was made to ensure accuracy. However, inadvertent computerized head of measurement & insights errors may be present. Instructed patient on daily weights, fluid restriction, and low sodium diet. Advised of s/s requiring ER treatment or to call the office. Heart failure education provided: Yes. Patient verbalized understanding. documented in this encounter [facility] 02-06-2025 Instructions Risa Summers MD - 02/06/2025 12:00 PM [...] by calling the Heart Failure Clinic at [phone]. Please call 911 for emergencies. documented in this encounter [facility] 02-06-2025 Miscellaneous Notes Franci from [facility] pain management called and stated that patient voiced concern of that she wanted to restart the gabapentin. Doctor was wondering why it was discontinued? Message noted. Side effects. We replaced it with pregabalin. I do not know who Franci is, but she should know these things. And if she does not, she should not be asking the questions. Notified Franci documented in this encounter [facility] 02-06-2025 Telephone encounter Note Franci from [facility] pain management called and stated that patient voiced concern of that she wanted to restart the gabapentin. Doctor was wondering why it was discontinued? [facility] 02-06-2025 Telephone encounter Note Message noted. Side effects. We replaced it with pregabalin. I do not know who Franci is, but she should know these things. And if she does not, she should not be asking the questions. [facility] 02-06-2025 Telephone encounter Note Notified Franci [facility] 02-03-2025 Miscellaneous Notes LEFT VOICEMAIL REMINDER ABOUT APPOINTMENT ON THURSDAY 3:30. documented in this encounter [facility] 02-03-2025 Telephone encounter Note LEFT VOICEMAIL REMINDER ABOUT APPOINTMENT ON THURSDAY 3:30. [facility] 01-25-2025 Telephone encounter Note Friend called- Norma has gone without Bi-pap x3 days - she said [facility] needs order for Bi-pap w settingsas well as - Reg O2 concentrator, and personal concentrator To [facility] If already sent pls disregard - ty [facility] 01-25-2025 Miscellaneous Notes Friend called- Norma has gone without Bi-pap x3 days - she said [facility] needs order for Bi-pap w settingsas well as - Reg O2 concentrator, and personal concentrator To [facility] If already sent pls disregard - ty documented in this encounter [facility] 01-03-2025 Miscellaneous Notes Preoperative Education Checklist- General Surgery date: 01/04/25 Surgery time: 1000 Arrival time: 0900 1. Bring a photo ID and your insurance card with you the day of surgery. You will check in at the main lobby of the [facility]- registration desk is straight ahead as soon as you walk in. Tell them you are here for surgery. 2. If you have a Living Will/Durable Power of Loop Tacker for Health Care that is not on [...] after you have bathed. 5. NO nail tristanian/acrylic on at least one finger. If you are having a hand, wrist or foot surgery then all nail tristanian and artificial/acrylic nails must be removed from [...] please call the Preadmission Testing office at [phone], Mon.-Fri. 7 a.m.-3 p.m. Leave a voicemail [...] Stop taking 0 days prior to procedure dgakgozyec-hzzddvyl-dagaacjltv (BREZTRI AEROSPHERE) 160-9-4.8 mcg/actuation HFA aerosol inhaler [...] prior to procedure documented in this encounter [facility] 01-03-2025 Nurse Note Preoperative Education Checklist- General Surgery date: 01/04/25 Surgery time: 1000 Arrival time: 0900 1. Bring a photo ID and your insurance card with you the day of surgery. You will check in at the main lobby of the [facility]- registration desk is straight ahead as soon as you walk in. Tell them you are here for surgery. 2. If you have a Living Will/Durable Power of Loop Tacker for Health Care that is not on [...] after you have bathed. 5. NO nail tristanian/acrylic on at least one finger. If you are having a hand, wrist or foot surgery then all nail tristanian and artificial/acrylic nails must be removed from [...] please call the Preadmission Testing office at [phone], Mon.-Fri. 7 a.m.-3 p.m. Leave a voicemail [...] Stop taking 0 days prior to procedure qyldaxxlbt-wkmqkqns-tesqwlfxjp (BREZTRI AEROSPHERE) 160-9-4.8 mcg/actuation HFA aerosol inhaler [...] Stop taking 0 days prior to procedure [facility] 01-03-2025 Telephone encounter Note Pt gets bi-pap machine from [employer] Pt was told that she due for a renewal order for her Bipap, also her condenser Phone number is for [facility] 01-03-2025 Miscellaneous Notes Pt gets bi-pap machine from [employer] Pt was told that she due for a renewal order for her Bipap, also her condenser Phone number is for [employer] documented in this encounter [facility] 12-19-2024 Miscellaneous Notes Preoperative Education Checklist- General Surgery date: 12/20/24 Surgery time: 1000 Arrival time: 0900 1. Bring a photo ID and your insurance card with you the day of surgery. You will check in at the main lobby of the [facility]- registration desk is straight ahead as soon as you walk in. Tell them you are here for surgery. 2. If you have a Living Will/Durable Power of Loop Tacker for Health Care that is not on [...] after you have bathed. 5. NO nail tristanian/acrylic on at least one finger. If you are having a hand, wrist or foot surgery then all nail tristanian and artificial/acrylic nails must be removed from [...] please call the Preadmission Testing office at [phone], Mon.-Fri. 7 a.m.-3 p.m. Leave a voicemail [...] Stop taking 0 days prior to procedure ltkpcfbsfr-fbfgnhgk-cduigssorn (BREZTRI AEROSPHERE) 160-9-4.8 mcg/actuation HFA aerosol inhaler [...] prior to procedure [facility] Nurse Note Preoperative Education Checklist- General Surgery date: 12/20/24 Surgery time: 1000 Arrival time: 0900 1. Bring a photo ID and your insurance card with you the day of surgery. You will check in at the main lobby of the [facility]- registration desk is straight ahead as soon as you walk in. Tell them you are here for surgery. 2. If you have a Living Will/Durable Power of Loop Tacker for Health Care that is not on [...] after you have bathed. 5. NO nail tristanian/acrylic on at least one finger. If you are having a hand, wrist or foot surgery then all nail tristanian and artificial/acrylic nails must be removed from [...] please call the Preadmission Testing office at [phone], Mon.-Fri. 7 a.m.-3 p.m. Leave a voicemail [...] Stop taking 0 days prior to procedure bfipbhrudj-czqkivvd-gysysurhod (BREZTRI AEROSPHERE) 160-9-4.8 mcg/actuation HFA aerosol inhaler [...] Stop taking 0 days prior to procedure [facility] [employer] [facility] 12-15-2024 History of Presen t illness Narrative [...] Vitals reviewed. Exam conducted with a senior qa automation engineer present (Friend/POA). Constitutional: General: She is not [...] EGD; Future Stage 3a chronic kidney disease ([facility]) -patient now back on torsemide 20 [...] recommendations following testing documented in this encounter [facility] 12-08-2024 Miscellaneous Notes Transition of Care (*required) *Additional Questions/Concerns Requiring PCP Follow-Up: -Patient has ZACHARY appointment on 12/15/2024 This documentation is being used for Transition of Care purposes: Yes Goal: Patient will demonstrate a safe transition from hospital to home Diagnosis on Discharge: Discharge diagnoses: Principal Problem: Acute on chronic respiratory failure with hypoxia and hypercapnia ([facility]) Active Problems: Bipolar 2 disorder, major depressive episode ([facility]) Stage 3a chronic kidney disease ([facility]) Pulmonary hypertension ([facility]) Discharge Specialty: Other *Name of Discharging Facility: [facility] Date of Facility Discharge: 12/04/24-12/06/2024 Date of Interactive Contact and Name of Wood Model Builder: 12/08/24 0920 Unable to reach patient. LVM 12/08/24 12:18 [...] NA Message noted. documented in this encounter [facility] 12-08-2024 Telephone encounter Note Transition of Care (*required) *Additional Questions/Concerns Requiring PCP Follow-Up: -Patient has ZACHARY appointment on 12/15/2024 This documentation is being used for Transition of Care purposes: Yes Goal: Patient will demonstrate a safe transition from hospital to home Diagnosis on Discharge: Discharge diagnoses: Principal Problem: Acute on chronic respiratory failure with hypoxia and hypercapnia ([facility]) Active Problems: Bipolar 2 disorder, major depressive episode ([facility]) Stage 3a chronic kidney disease ([facility]) Pulmonary hypertension ([facility]) Discharge Specialty: Other *Name of Discharging Facility: [facility] Date of Facility Discharge: 12/04/24-12/06/2024 Date of Interactive Contact and Name of Wood Model Builder: 12/08/24 0956 Unable to reach patient. LVM [...] Other Services Utilized/Needed by the Patient: NA [facility] 12-08-2024 Telephone encounter Note Message noted. [facility] 11-30-2024 Miscellaneous Notes ----- Message from PRAKASH Espinosa sent at 11/30/2024 11:52 AM EDT ----- Have her repeat labs again next week ----- Message ----- From: Kacey Sims RN Sent: 11/30/2024 8:28 AM EDT To: PRAKASH Linares Seen Thursday in [facility], restarted torsemide and you wanted labs in 1 week. She completed the next day. ----- Message ----- From: Lab, Background User Sent: 11/29/2024 7:25 PM EDT To: [facility] Clinical Staff documented in this encounter [facility] 11-30-2024 Telephone encounter Note ----- Message from PRAKASH Espinosa sent at 11/30/2024 11:52 AM EDT ----- Have her repeat labs again next week ----- Message ----- From: Kacey Sims RN Sent: 11/30/2024 8:28 AM EDT To: PRAKASH Linares Seen Thursday in [facility], restarted torsemide and you wanted labs in 1 week. She completed the next day. ----- Message ----- From: Lab, Background User Sent: 11/29/2024 7:25 PM EDT To: [facility] Clinical Staff [facility] 11-28-2024 History of Presen t illness Narrative Images from the original note were not included. [facility] Patient: Monet Recinos Date of : 1960 Age: 64 y.o. Date of Encounter: 11/28/2024 REASON FOR VISIT: Chronic heart failure. Dear Rajni Cardozo Jr, DO & Rajni Cardozo, We had the pleasure of seeing your patient, Monet Recinos, in the [facility] on 11/28/2024. Ms. Recinos [...] mouth in the morning. 90 tablet 3 vostxdmvgf-hrrxuoit-eqzbtvrqda (BREZTRI AEROSPHERE) 160-9-4.8 mcg/actuation HFA aerosol inhaler [...] 42 mm per mercury 11/15 TTE 3. [place] coronary ASCVD status post CABG x4 08/15 [...] Odessa Cook CNP Advanced Heart Failure Services [facility] This note was completed using a voice head of measurement & insights system. Every effort was made to ensure accuracy. However, inadvertent computerized head of measurement & insights errors may be present. PRAKASH Linares 11/28/24 1444 Instructed patient on daily weights, fluid restriction, and low sodium diet. Advised of s/s requiring ER treatment or to call the office. Heart failure education provided: No. Patient verbalized understanding. Pt scheduled for echo while in office. Instructions reviewed with pt. documented in this encounter [facility] 11-28-2024 Instructions PRAKASH Linares - 11/28/2024 2:00 [...] by calling the Heart Failure Clinic at [phone]. Please call 911 for emergencies. documented in this encounter [facility] 11-07-2024 History of Presen t illness Narrative [...] persist 2. Stage 3a chronic kidney disease ([facility]) -I reviewed the results of the [...] Vitals reviewed. Exam conducted with a senior qa automation engineer present (Friend/POA). Constitutional: General: She is not [...] the morning., Disp: 90 tablet, Rfl: 3 qhsdymroao-yneoleny-jwizqtzwoq (BREZTRI AEROSPHERE) 160-9-4.8 mcg/actuation HFA aerosol inhaler, [...] Testing No results found. Rajni Cardozo DO., [facility] Physicians Office: [phone] documented in this encounter [facility] 11-07-2024 Evaluation note Diagnosis Hiatal hernia with GERD- Primary Stage 3a chronic kidney disease ([facility]) Patellar tendinitis of right knee Gastro-esophageal reflux disease without esophagitis Venous insufficiency of both lower extremities documented in this encounter [facility]07-09-2025 NoteFL UGI WITH ESOPHAGUS HISTORY: Nausea and [...] by Kai Finn MD on 11/02/2024 10:14 [facility] 10-27-2024 History of Present illness Narrative* Rajni Cardozo DO - 10/27/2024 4:15 PM EDT IM PROGRESS NOTE Patient - Monet Recinos Age - 64 y.o. - 1960 ASSESSMENT & PLAN 1. Type 2 diabetes mellitus with stage 3a chronic kidney disease, without long- term current use of insulin ([facility]) (Primary) - last A1c 6.5% -goals of [...] Chronic heart failure with preserved ejection fraction ([facility]) - GDMT: Aldactone, Jardiance, furosemide - will continue to wean off of propanolol over the next 2 weeks - at that time we can decide on replacement beta-georgi - propranoloL (INDERAL) 40 mg tablet; Take 1 tablet (40 mg total) by mouth in the morning. 4. Stage 3a chronic kidney disease ([facility]) - GFR ranges 45-54 over the past [...] daily. Unless she takes a dose of [place] along with the pantoprazole, she will get [...] Vitals reviewed. Exam conducted with a senior qa automation engineer present (Friend/POA). Constitutional: General: She is not [...] in the morning., Disp: 90tablet, Rfl: 3 nankldwlaq-inlyusgw-ixqvcshsmy (BREZTRI AEROSPHERE) 160-9-4.8 mcg/actuation HFA aerosol inhaler, [...] Testing No results found. Rajni Cardozo DO., [facility] Phys[facility] Office: [phone] [facility] Evaluation note* Diagnosis Type 2 diabetes mellitus with stage 3a chronic kidney disease, without long-term current use of insulin ([facility] Primary Venous insufficiency of both lower extremities Chronic heart failure with preserved ejection fraction ([facility]) Stage 3a chronic kidney disease ([facility]) Nausea and vomiting, unspecified vomiting type Arthritis of left sacroiliac joint Cervicogenic headache Headache documented in this encounter [facility]06-13-2025 History of Present illness Narrative* Rajni Cardozo, DO - 10/07/2024 11:30 AM EDT IM PROGRESS NOTE Patient - Monet Recinos [facility] - 64 [facility] 1960 [id number] ASSESSMENT & PLAN 1. Cervicogenic headache (Primary) [...] Chronic heart failure with preserved ejection fraction ([facility]) -GDMT: Jardiance, propanolol, spironolactone -may need further [...] Vitals reviewed. Exam conducted with a senior qa automation engineer present (Friend/POA). Constitutional: General: She is not in acute distress. Appearance: She is well-developed. She is obese. She is not toxic-appearing. BONYT: Head: Normocephalic. Right Ear: Tympanic membrane, ear [...] in the morning., Disp: 90tablet, Rfl: 3 euktkftdko-xqvxromi-iljyfgbupp (BREZTRI AEROSPHERE) 160-9-4.8 mcg/actuation HFA aerosol inhaler, [...] Testing No results found. Rajni Cardozo DO., [facility] Office: [phone] documented in this encounterUC [id number] History of Present illness Narrative* Sydnie Guerrero, - 09/21/2024 3:00 PM EDT Images from [...] needed for wheezing, Disp:18 g, Rfl: 5 Ifktftg-Beslxgzettm-Gitoywdhqw (Breztri Aerosphere) 160-9-4.8 MCG/ACT aerosol, Inhale 2 [...] History: Diagnosis Date Agoraphobia Angina at rest (CMS/HCC) Anxiety Arthritis of left sacroiliac joint (CMS/HCC) 07/07/2024 BiPAP (biphasic positive airway pressure) dependence Bipolar disorder Breast injury CAD (coronary artery disease) ([facility]) Cervical disc disorder Chronic kidney disease Cigarette nicotine dependence in remission 10/16/2020 Congestive heart failure (CHF) ([facility]) COPD (chronic obstructive pulmonary disease) ([facility]) COVID-19 04/29/2023 Dementia ([facility]) Dependence on other enabling machines and devices 04/29/2023 Depression ([facility]) Difficulty in walking, not elsewhere classified 04/28/2023 Former smoker 09/26/2022 GERD (gastroesophageal reflux disease) Hyperlipidemia ([facility]) 04/29/2023 Liver disease Lumbosacral disc disease Memory loss Myocardial infarction ([facility]) Nicotine dependence 04/29/2023 Obesity with body mass index 30 or greater 05/14/2023 BONY (obstructive sleep apnea) Osteoarthritis Panic disorder ([facility]) Personal history of nicotine dependence 04/29/2023 Pneumonia, unspecified organism 04/29/2023 Polyneuropathy, unspecified 04/29/2023 Presence of aortocoronary bypass graft 04/29/2023 Psoriasis Psoriasis, unspecified 05/02/2023 PTSD (post-traumatic stress disorder) ([facility]) Shortness of breath Solitary pulmonary nodule 04/29/2023 Stage 3a chronic kidney disease (HCC) ([facility]) 07/07/2024 Thoracic disc disease Unspecified dementia, mild, without behavioral disturbance, psychotic disturbance, mood disturbance, and anxiety ([facility]) 04/30/2023 Ventricular tachycardia ([facility]) 09/20/2024 Documented on 08/23/2020 Visual impairment Weakness [...] Chronic obstructive pulmonary disease, unspecified COPD type ([facility]) - albuterol HFA 90 mcg/act inhaler; Inhale 2 puffs every 4 (four) hours if needed for wheezing - Tlavvcc-Nawkmvevqvz-Ggmgmajutf (Breztri Aerosphere) 160-9-4.8 MCG/ACT aerosol; Inhale 2 puffs in the morning and 2 puffs before bedtime. Chronic respiratory failure with hypoxia and hypercapnia ([facility]) BONY (obstructive sleep apnea) COPD -- at [...] COPD. Sydnie Guerrero DO documented in this encounterNorthwest [facility] [id number] History of Present illness Narrative* Myriam Peacock MD - 09/01/2024 11:15 AM EDT Monet Recinos Date of visit: 09/01/2024 Date of : 1960 Age: 64 y.o. Patient Active Problem List Diagnosis NSTEMI (non-ST elevated myocardial infarction) ([facility]) Obesity (BMI 30-39.9) Atherosclerotic heart disease of [place] coronary artery with other forms of angina pectoris Hyperglycemia Cigarette nicotine dependence in remission Depression Liver disease Visual impairment BONY treated with BiPAP Chronic heart failure with preserved ejection fraction ([facility]) Essential hypertension Hx of hyperlipidemia Former smoker Agoraphobia Anxiety Chipped tooth GERD (gastroesophageal reflux disease) Low back pain Osteoarthritis PTSD (post-traumatic stress disorder) Bipolar 2 disorder, major depressive episode ([facility]) Cannabis use disorder, mild, abuse Major depressive disorder Panic disorder Weakness BMI 40.0-44.9, adult ([facility]) Chronic respiratory failure with hypoxia and hypercapnia ([facility]) Closed wedge compression fracture of T6 vertebra with routine healing Arthritis of left sacroiliac joint Chronic obstructive pulmonary disease, unspecified COPD type ([facility]) Stage 3a chronic kidney disease ([facility]) Allergies Allergen Reactions Penicillins Anaphylaxis Other Reaction(s): [...] mouth in the morning. 90 tablet 3 dttfzouyyw-qjebbjjn-eczzkadyfj (BREZTRI AEROSPHERE) 160-9-4.8 mcg/actuation HFA aerosol inhaler [...] longer uses a BIPAP 01/28/23 Bipolar disorder ([facility] Breast injury CHF (congestive heart failure) ([facility] Chipped tooth Chronic kidney disease COPD (chronic obstructive pulmonary disease) ([facility]) Coronary artery disease Dementia ([facility]) Depression Diarrhea frequent bouts /involuntary Dizziness Fracture, vertebral, lumbar closed ([facility]) GERD (gastroesophageal reflux disease) Headache History of coronary artery bypass graft 08/14/2020 Liver disease Low back pain Lump or mass in breast Memory loss Myocardial infarction ([facility]) Apr 2009, swith stent placement Obesity BONY treated with BiPAP 07/31/2022 Osteoarthritis Panic disorder Psoriasis PTSD (post-traumatic stress disorder) Pulmonary emboli ([facility]) Rib fracture 09/2023 lt Rotator cuff tear L Shortness of breath Sleep apnea Visual impairment glasses No data recorded No data recorded No data recorded Past Surgical History: Procedure Laterality Date BREAST BIOPSY BREAST CYST EXCISION Cardiac catheterization N/A 01/09/2020 Performed by Yefri Khan MD at [facility] Cardiac catheterization-LV Cors N/A 08/06/2020 Performed by Hazel Painting MD at [facility] SECTION CHOLECYSTECTOMY COLONOSCOPY N/A 04/03/2017 Performed by Jose Beaver MD at [facility] Coronary angiogram and left ventricular gram/pressure N/A 01/09/2020 Performed by Yefri Khan MD at [facility] CORONARY ANGIOPLASTY WITH STENT PLACEMENT CORONARY ARTERY BYPASS GRAFT X4/ THOMPSON/ SVG X3 / RIGHT UPPER LEG OPEN VEIN HARVEST/ LEFT UPPER LEG OPEN VEING HARVEST /GINETTE N/A 08/13/2020 Performed by Leroy Meng MD at [facility] Drug eluting stent left anterior descending N/A 01/09/2020 Performed by Yefri Khan MD at [facility] EXCISION SEROMA LOWER EXTREMITY Left 10/07/2022 Performed by Victor Hugo Vincent DO at [facility] Intravascular ultrasound coronary N/A 08/06/2020 Performed by Hazel Painting MD at [facility] Intravascular ultrasound coronary N/A 01/09/2020 Performed by Yefri Khan MD at [facility] NOTCHARGED/Thrombolysis arterial initial treatment N/A 01/09/2020 Performed by Yefri Khan MD at [facility] TONSILLECTOMY Family History Problem [...] min Stress: No Stress Concern Present (07/25/2023) [employer] [place] [employer] - Occupational Stress Questionnaire Feeling of Stress : Only a little Recent Concern: Stress - Stress Concern Present (07/25/2023) [place] [employer] - Occupational Stress Questionnaire Feeling of Stress : Very much Social Connections: Moderately Isolated (07/25/2023) Social Connection and Isolation Panel [NHANES] Frequency of Communication with Friends and Family: Three times a week Frequency of Social Gatherings with Friends and Family: Three times a week Attends Confucianist Services: More than 4 times per year [...] PCI to LAD in 2019 for NSTEMI. HFpEF, well compensated Chronic dyspnea [...] Referring Physician: Rajni Cardozo DO [address] [place] [address] documented in this encounterAv[facility] Miscellaneous Notes* Telephone Encounter - Ching Gay RN - 07/15/2024 8:20 AM EDT Last OV 02/19/24 Last CMP 07/07/24.slm documented in this [facility]03-21-2025 Telephone encounter Note* Telephone Encounter - Ching Gay RN - 07/15/2024 8:20 AM EDT Last OV 02/19/24 Last CMP 07/07/24.slm [employer] [id number] History of Present illness Narrative* Rajni Cardozo, [...] Chronic obstructive pulmonary disease, unspecified COPD type ([facility]) -COPD GOLD class B -overall stable -continue Breztri 2 puffs b.i.d. with p.r.n. albuterol 3. Stage 3a chronic kidney disease ([facility]) -GFR ranges 44-49 over the past 6 months -renal protective strategies were reviewed with the patient -continue to avoid NSAIDs, gabapentin -repeat electrolytes, kidney function and GFR to assess for improvement or worsening - CBC auto differential; Future - Comprehensive metabolic panel; Future 4. Chronic respiratory failure with hypoxia and hypercapnia ([facility]) -GOLD class B -patient with stationary and portable oxygen at home -I encouraged her to wear the portable oxygen as much as possible. -most desaturations, when she is active, and this is when she needs it the most. 5. Chronic heart failure with preserved ejection fraction ([facility]) -improved -no longer requiring loop diuretic -GDMT includes Jardiance, spironolactone, propanolol [place] 6. Bipolar 2 disorder, major depressive episode ([facility]) -sees Psychiatry on a routine basis -current regimen includes venlafaxine, Lamictal, doxepin, clonazepam, aripiprazole 7. BMI 40.0-44.9, adult ([facility]) -ongoing problem which has worsened due to missing some of her medications -given her overall CV risk, may benefit from initiation of GLP 1 treatment 8. Atherosclerotic heart disease of [place] coronary artery with other forms of angina pectoris (CMS-HCC) -currently taking atorvastatin 80 mg daily -most [...] 0 11. Arthritis of left sacroiliac joint ([facility]) -overall stable. Has not been to pain [...] Vitals reviewed. Exam conducted with a senior qa automation engineer present (Friend/POA). Constitutional: General: She is not [...] in the morning., Disp: 90tablet, Rfl: 3 bcybpzegur-uzjiepis-tvvvboqivi (BREZTRI AEROSPHERE) 160-9-4.8 mcg/actuation HFA aerosol inhaler, [...] Testing No results found. Rajni Cardozo DO., [facility] Office: [phone] documented in this encounterUC Healthfruux [facility] [id number] History of Present illness Narrative* Rajni Cardozo DO - 03/29/2024 3:15 PM EST IM PROGRESS NOTE Patient - Monet Recinos Age - 63 y.o. - 1960 ASSESSMENT & PLAN Video Visit via Real-time Synchronous Audiovisual Provider Location: [facility] [address] [facility] [address] Patient Location: Patient's home Video Visit Consent [...] that there are some limitations compared to pqvv-ef-uqiv evaluations. The patient consented to the presence [...] Physical Exam Exam conducted with a senior qa automation engineer present (Friend/POA). Constitutional: General: She is not [...] THE MORNING, Disp: 90 tablet, Rfl: 3 zwdklhnibk-uojzrvjn-ufftnbessz (BREZTRI AEROSPHERE) 160-9-4.8 mcg/actuation HFA aerosol inhaler, [...] Testing No results found. Rajni Cardozo DO., [facility] Office: [phone] documented in this encounterAvita [facility]12-03-2024 Miscellaneous Notes* Telephone Encounter - Monica Johnston [...] a video visit today documented in this encounterAvita Health System [facility]12-03-2024 Telephone encounter Note* Telephone Encounter - Monica Johnston CMA - 03/29/2024 9:13 AM EST Pts friend called stated pt is having bursing on her legs for no reason , they would like to know if something to be concerned about or maybe a side effect from the pregabalin ? [facility] Telephone encounter Note* Telephone Encounter - Rajni Cardozo DO - 03/29/2024 9:13 AM EST Message noted. What is happening to her legs? [facility] [employer] [id number] Telephone encounter Note* Telephone Encounter - Monica Johnston CMA - 03/29/2024 9:13 AM EST They are brusing , she's not hirting or bumping anything they are just popping up [facility]12-03-2024 Telephone encounter Note* Telephone Encounter - Rajni Cardozo DO - 03/29/2024 9:13 AM EST Message noted. This is not a side effect from pregabalin. Is she taking aspirin for any reason? [facility]12-03-2024 Telephone encounter Note* Telephone Encounter - Monica Johnston CMA - 03/29/2024 9:13 AM EST She's not taking any aspirin lately bc she's out . She did take some excedrin today . They started about a week ago. [facility]12-03-[facility] Telephone encounter Note* Telephone Encounter - Monica Johnston CMA - 03/29/2024 9:13 AM EST She is worried they are blood clots , they just want to know if its something to worry about ? Friend also just stated that she is starting to swelling up again [facility]12-03-2024 Telephone encounter Note* Telephone Encounter - Rajni Cardozo DO - 03/29/2024 9:13 AM EST Message noted. Hard to say without seeing it. We can put her in a slot tomorrow, or try a video visit today [facility]11-21-2024 History of Present illness Narrative* Sydnie Guerrero DO - 03/17/2024 1:00 PM EST Images [...] for her, however she states that the [employer] would not accept his testing. She is [...] tablet Take 80 mg by mouth Daily Gbwfoni-Sqqwahpdrjy-Idclzqxosm (Breztri Aerosphere) 160-9-4.8 MCG/ACT aerosol Inhale calcitonin, [...] visit. Past Medical History: Diagnosis Date Agoraphobia ([facility]) Angina at rest ([facility]) Anxiety BiPAP (biphasic positive airway pressure) dependence Bipolar disorder ([facility]) Breast injury CAD (coronary artery disease) ([facility]) Cervical disc disorder Chronic kidney disease Cigarette nicotine dependence in remission 10/16/2020 Congestive heart failure (CHF) ([facility]) COPD (chronic obstructive pulmonary disease) ([facility]) COVID-19 04/29/2023 Dementia ([facility]) Dependence on other enabling machines and devices 04/29/2023 Depression ([facility]) Difficulty in walking, not elsewhere classified 04/28/2023 Former smoker 09/26/2022 GERD (gastroesophageal reflux disease) Liver disease Lumbosacral disc disease Memory loss Myocardial infarction ([facility]) BONY (obstructive sleep apnea) Osteoarthritis Panic disorder ([facility]) Personal history of nicotine dependence 04/29/2023 Pneumonia, unspecified organism 04/29/2023 Polyneuropathy, unspecified 04/29/2023 Presence of aortocoronary bypass graft 04/29/2023 Psoriasis ([facility]) Psoriasis, unspecified ([facility]) 05/02/2023 PTSD (post-traumatic stress disorder) ([facility]) Shortness of breath Solitary pulmonary nodule 04/29/2023 Thoracic disc disease Unspecified dementia, mild, without behavioral disturbance, psychotic disturbance, mood disturbance, and anxiety ([facility]) 04/30/2023 Visual impairment Weakness 05/28/2023 Past Surgical [...] Current packs/day: 0.00 Types: Cigarettes Quit date: 2022 Years since quittin.8 Smokeless tobacco: Former Substance [...] send a script for a POC to [facility] today. Tobacco use -- she does continue to smoke on a daily basis. She is currently at a half pack or less. We did have a 4 minute discussion regarding the importance of smoking cessation at today's office visit. Follow up in about 3 months (around 06/17/2024) for COPD, in [place] office. Sydnie Guerrero DO documented in this encounterNorthwest Medical [id number] History of Present illness Narrative* Rajni Cardozo [...] 0 3. Stage 3a chronic kidney disease ([facility]) -GFR ranges from 36 to 53 over the past year. -renal protective strategies were reviewed with patient, in particular avoidance of NSAIDs and Weclh 2 inhibitors -we are evaluating and reducing or eliminating all prescription medications which could affect the kidney -continue to monitor. ACR ordered today - CBC auto differential; Future 4. Chronic heart failure with preserved ejection fraction ([facility]) -GDMT: Jardiance 10 mg daily, propanolol 80 mg daily, spironolactone 25 mg daily, torsemide. -continue home oxygen 5. Atherosclerotic heart disease of [place] coronary artery with other forms of angina pectoris ([facility]) -currently atorvastatin 80 mg daily -repeat lipids [...] Vitals reviewed. Exam conducted with a senior qa automation engineer present (Friend/POA). Constitutional: General: She is not [...] THE MORNING, Disp: 90 tablet, Rfl: 3 ygoshxuymr-pzpwrcni-suqxwptogt (BREZTRI AEROSPHERE) 160-9-4.8 mcg/actuation HFA aerosol inhaler, [...] on 12/17/2023 11:39 AM Rajni Cardozo DO., [facility] Office: [phone] documented in this encounterAvita Health [facility]10-28-2024 Miscellaneous Notes* Telephone Encounter - Monica Johnston [...] EDT Message noted. Yes documented in this encounterAvita Health System [facility]10-28-2024 Telephone encounter Note* Telephone Encounter - Monica Johnston CMA - 02/22/2024 12:27 PM EDT Pts' friend norma called was wondering what you were going to do with the pregabalin there were no refills , pt stated the gabapentin worked better but needed to know if you were going to refill the pregabalin or in crease the dosage ? [facility]-28-[facility] Telephone encounter Note* Telephone Encounter - Rajni Cardozo DO - 02/22/2024 12:27 PM EDT Message noted. Needs a recheck appointment to discuss [facility]-28-[facility] Telephone encounter Note* Telephone Encounter - Cathleen Arreola - 02/22/2024 12:27 PM EDT Comes in 03/07 is that okay? [facility]10-28-[facility] Telephone encounter Note* Telephone Encounter - Rajni Cardozo DO - 02/22/2024 12:27 PM EDT Message noted. Yes [facility]10-25-2024 History of Present illness Narrative* Myriam Giles MD - 02/19/2024 10:45 AM EDT Monet Dhillon Jorje Date of visit: 02/19/2024 Date of : 1960 Age: 63 y.o. Patient Active Problem List Diagnosis NSTEMI (non-ST elevated myocardial infarction) ([facility]) Obesity (BMI 30-39.9) Atherosclerotic heart disease of [place] coronary artery with other forms of angina pectoris ([facility]) Hyperglycemia Cigarette nicotine dependence in remission Depression Liver disease Visual impairment BONY treated with BiPAP Chronic heart failure with preserved ejection fraction ([facility]) Essential hypertension Hx of hyperlipidemia Former smoker Agoraphobia Anxiety Chipped tooth GERD (gastroesophageal reflux disease) Low back pain Osteoarthritis PTSD (post-traumatic stress disorder) Bipolar 2 disorder, major depressive episode ([facility]) Cannabis use disorder, mild, abuse Major depressive disorder Panic disorder Weakness BMI 40.0-44.9, adult ([facility]) Chronic respiratory failure with hypoxia and hypercapnia ([facility]) Acute pulmonary embolism without acute cor pulmonale, unspecified pulmonary embolism type ([facility]) Closed wedge compression fracture of T6 vertebra [...] MOUTH IN THE MORNING 90 tablet 3 skznlpxjtw-rgrugxbi-wissxvvdac (BREZTRI AEROSPHERE) 160-9-4.8 mcg/actuation HFA aerosol inhaler [...] History: Diagnosis Date Agoraphobia Angina at rest ([facility]) Anxiety BiPAP (biphasic positive airway pressure) dependence Patient states she no longer uses a BIPAP 01/28/23 Bipolar disorder ([facility]) Breast injury CHF (congestive heart failure) ([facility]) Chipped tooth Chronic kidney disease COPD (chronic obstructive pulmonary disease) ([facility]) Coronary artery disease Dementia ([facility]) Depression Diarrhea frequent bouts /involuntary Dizziness Fracture, vertebral, lumbar closed ([facility]) GERD (gastroesophageal reflux disease) Headache History of coronary artery bypass graft 08/14/2020 Liver disease Low back pain Lump or mass in breast Memory loss Myocardial infarction ([facility]) Apr 2009, swith stent placement Obesity BONY treated with BiPAP 07/31/2022 Osteoarthritis Panic disorder Psoriasis PTSD (post-traumatic stress disorder) Pulmonary emboli ([facility]) Rib fracture 09/2023 lt Rotator cuff tear L Shortness of breath Sleep apnea Visual impairment glasses No data recorded No data recorded No data recorded Past Surgical History: Procedure Laterality Date BREAST BIOPSY BREAST CYST EXCISION Cardiac catheterization N/A 01/09/2020 Performed by Yefri Khan MD at [facility] Cardiac catheterization-LV Cors N/A 08/06/2020 Performed by Hazel Painting MD at [facility] SECTION CHOLECYSTECTOMY COLONOSCOPY N/A 04/03/2017 Performed by Jose Beaver MD at [facility] Coronary angiogram and left ventricular gram/pressure N/A 01/09/2020 Performed by Yefri Khan MD at [facility] CORONARY ANGIOPLASTY WITH STENT PLACEMENT CORONARY ARTERY BYPASS GRAFT X4/ THOMPSON/ SVG X3 / RIGHT UPPER LEG OPEN VEIN HARVEST/ LEFT UPPER LEG OPEN VEING HARVEST /GINETTE N/A 08/13/2020 Performed by Leroy Meng MD at [facility] Drug eluting stent left anterior descending N/A 01/09/2020 Performed by Yefri Khan MD at [facility] EXCISION SEROMA LOWER EXTREMITY Left 10/07/2022 Performed by Victor Hugo Vincent DO at [facility] Intravascular ultrasound coronary N/A 08/06/2020 Performed by Hazel Painting MD at [facility] Intravascular ultrasound coronary N/A 01/09/2020 Performed by Yefri Khan MD at [facility] NOTCHARGED/Thrombolysis arterial initial treatment N/A 01/09/2020 Performed by Yefri Khan MD at [facility] TONSILLECTOMY Family History Problem [...] min Stress: No Stress Concern Present (07/25/2023) [employer] [place] [employer] - Occupational Stress Questionnaire Feeling of Stress : Only a little Recent Concern: Stress - Stress Concern Present (07/25/2023) [employer] [place] [employer] - Occupational Stress Questionnaire Feeling of Stress : Very much Social Connections: Moderately Isolated (07/25/2023) Social Connection and Isolation Panel [NHANES] Frequency of Communication with Friends and Family: Three times a week Frequency of Social Gatherings with Friends and Family: Three times a week Attends Confucianist Services: More than 4 times per year [...] PCI to LAD in 2020 for NSTEMI. HFpEF Bipolar disorder Tobacco abuse, [...] Referring Physician: Rajni Cardozo DO [address] [place] [address] documented in this encounterAvita Health System [facility]10-24-2024 Miscellaneous Notes* Telephone Encounter - Vicki Bailey CMA - 02/18/2024 9:30 AM EDT Called patient to remind them to bring their most current copy of their medication list with them to their appt. Patient verbalizes understanding. documented in this encounterAvita Health System [facility]10-24-2024 Telephone encounter Note* Telephone Encounter - Vicki Bailey CMA - 02/18/2024 9:30 AM EDT Called patient to remind them to bring their most current copy of their medication list with them to their appt. Patient verbalizes understanding. [facility] [employer] [id number] History of Present illness Narrative* Eusebia Huertas, - 02/09/2024 1:30 PM EDT Images from [...] nerve blocks in the past. Last saw [facility] pain clinic 09/2022, PT and aquatic therapy ordered , also RX for zanaflex. Prior treatment: pain clinic [facility] 09/2022, [facility] ER 08/27, MRI T-spine 09/10/23, calcitonin NS, norco, Lumbar MRI [facility] 11/27/22, LT ST Trigger point injx 12/29/23, [...] tablet Take 80 mg by mouth Daily Gaimmzb-Uunruiuawum-Amytkavdli (Breztri Aerosphere) 160-9-4.8 MCG/ACT aerosol Inhale calcitonin, [...] HISTORY: Past Medical History: Diagnosis Date Agoraphobia ([facility]) Angina at rest ([facility]) Anxiety BiPAP (biphasic positive airway pressure) dependence Bipolar disorder ([facility]) Breast injury CAD (coronary artery disease) ([facility]) Cervical disc disorder Chronic kidney disease Congestive heart failure (CHF) ([facility]) COPD (chronic obstructive pulmonary disease) ([facility]) Dementia ([facility]) Depression ([facility]) GERD (gastroesophageal reflux disease) Liver disease Lumbosacral disc disease Memory loss Myocardial infarction ([facility]) BONY (obstructive sleep apnea) Osteoarthritis Panic disorder ([facility]) Psoriasis ([facility]) PTSD (post-traumatic stress disorder) ([facility]) Shortness of breath Thoracic disc disease Visual impairment ALLERGIES: Allergies Allergen Reactions Penicillins Anaphylaxis Other Reaction(s): Swelling of Lip/Tongue/Throat Morphine VITALS: Visit Vitals Smoking Status Former PHYSICAL EXAM: Ortho Exam LT SI tenderness Gait intact ASSESSMENT: ICD-10-CM 1. Trigger point of left side of body M79.10 2. Arthritis of left sacroiliac joint ([facility]) M46.1 3. Lumbosacral pain M54.50 4. Pain of left sacroiliac joint M53.3 Ambulatory referral to Pain Medicine PLAN: I recommend referral to pain management to E/T SI and lumbosacral pain. Follow up as needed, any issues/concerns follow up sooner. Dr. Huertas obtained history and examined the patient, I am acting as scribe for Dr. Huertas/guido Huertas D.O. documented in this encounterNorthwest Medical [id number] Miscellaneous Notes* Telephone Encounter - Fior Scott CMA - 02/03/2024 3:42 PM EDT Requesting a referral to a new doctor of optometry and said she would explain when we c all back. I called back and got no answer and mailbox is full. * Telephone Encounter - Monica Johnston CMA - 02/03/2024 3:42 PM EDT Pt called back stated she really needs a referral for a new doctor of optometry * Telephone Encounter - Rajni Cardozo DO - 02/03/2024 3:42 PM EDT Message noted. Please try again. We need to know which doctor of optometry is on her insurance plan in order to make a referral. * Telephone Encounter - Cathleen Arreola - 02/03/2024 3:42 PM EDT LM on VM * Telephone Encounter - Sofya Coe CMA - 02/03/2024 3:42 PM EDT Patient's family called back and they need a referral to Dr. Guerrero [id number] [place], [place] * Telephone Encounter - Rajni Cardozo DO - 02/03/2024 3:42 PM EDT Message noted. The referral was sent today. She can call and schedule at any time. * Telephone Encounter - Cathleen Arreola - 02/03/2024 3:42 PM EDT Referral sent documented in this encounterAvita Health [facility]10-09-2024 Telephone encounter Note* Telephone Encounter - Fior Scott CMA - 02/03/2024 3:42 PM EDT Requesting a referral to a new doctor of optometry and said she would explain when we c all back. I called back and got no answer and mailbox is full. [facility]10-09-[facility] Telephone encounter Note* Telephone Encounter - Monica Johnston CMA - 02/03/2024 3:42 PM EDT Pt called back stated she really needs a referral for a new doctor of optometry [facility]10-09-2024 Telephone encounter Note* Telephone Encounter - Rajni Cardozo DO - 02/03/2024 3:42 PM EDT Message noted. Please try again. We need to know which doctor of optometry is on her insurance plan in order to make a referral. [facility]10-[facility] Telephone encounter Note* Telephone Encounter - Cathleen Arreola - 02/03/2024 3:42 PM EDT LM on VM [facility]10-09-2024 Telephone encounter Note* Telephone Encounter - Sofya Coe CMA - 02/03/2024 3:42 PM EDT Patient's family called back and they need a referral to Dr. Guerrero [id number] [place], [place] [facility]10-09-2024 Telephone encounter Note* Telephone Encounter - Rajni Cardozo DO - 02/03/2024 3:42 PM EDT Message noted. The referral was sent today. She can call and schedule at any time. [facility]10-09-2024 Telephone encounter Note* Telephone Encounter - Cathleen Arreola - 02/03/2024 3:42 PM EDT Referral sent [facility]10-07-2024 Miscellaneous Notes* Telephone Encounter - Vandana Resendiz - 02/01/2024 9:49 AM EDT Patient called and said that she needs office to send POC to [facility] for her oxygen therapy. Website Programmer let patient know that SE is not the one who wrote the order for the Oxygen therapy and that it was her primary care provider. Patient stated [facility] stated that she had to have her [...] and update. * Telephone Encounter - Vandana Magana Astrid - 02/01/2024 9:49 AM EDT Website Programmer called patient in regards earlier call and left voicemail to return call to office for information about her oxygen therapy order. Office phone number provided. documented in this encounterAvita Health System [facility]10-07-2024 Telephone encounter Note* Telephone Encounter - Vandana Pelayomarylin - 02/01/2024 9:49 AM EDT Patient called and said that she needs office to send POC to [facility] for her oxygen therapy. Website Programmer let patient know that SE is not the one who wrote the order for the Oxygen therapy and that it was her primary care provider. Patient stated [facility] stated that she had to have her oxygen therapy orders through pulmonary provider. Please Advise [facility]10-07-2024 Telephone encounter Note* Telephone Encounter - Shari Garcia RN - 02/01/2024 9:[address] Cardozo, PCP office ordered oxygen for nocturnal only. DME will not provide POC for patient with order for nocturnal oxygen only. Second, PCP office can sign oxygen therapy orders as they were the ones that ordered it. Any physician. Not just pulmonary. Please call patient and update. [facility]10-[facility] Telephone encounter Note* Telephone Encounter - Vandana Magana Astrid - 02/01/2024 9:49 AM EDT Website Programmer called patient in regards earlier call and left voicemail to return call to office for information about her oxygen therapy order. Office phone number provided. [facility] [employer] [id number] History of Present illness Narrative* Eusebia Huertas, DO - 01/26/2024 1:00 PM EDTAssociated Order(s): [...] tablet Take 80 mg by mouth Daily Qbeptwp-Bxscoxbjwgn-Esseufcitg (Breztri Aerosphere) 160-9-4.8 MCG/ACT aerosol Inhale calcitonin, [...] Diagnosis Date Agoraphobia (CMS/HCC) Angina at rest (CMS/HCC) Anxiety BiPAP (biphasic positive airway pressure) dependence Bipolar disorder (CMS/HCC) Breast injury CAD (coronary artery disease) (CMS/HCC) Cervical disc disorder Chronic kidney disease Congestive heart failure (CHF) (CMS/HCC) COPD (chronic obstructive pulmonary disease) (CMS/HCC) Dementia (CMS/HCC) Depression (CMS/HCC) GERD (gastroesophageal reflux disease) Liver disease Lumbosacral disc disease Memory loss Myocardial infarction (CMS/HCC) BONY (obstructive sleep apnea) Osteoarthritis Panic disorder (CMS/HCC) Psoriasis (CMS/HCC) PTSD (post-traumatic stress disorder) (CMS/HCC) Shortness of breath Thoracic disc disease Visual [...] Dr. Huertas/guido Huertas D.O. documented in this encounterNorthwest Medical [id number] Miscellaneous Notes* Telephone Encounter - Yadira Barrera RN - 01/20/2024 11:13 AM EDT Previous refill was set to no print New rx pended to pool for signature. Last ov 03/31/2023 Upcoming ov on 02/19/2024 Labs 12/17/2023 documented in this encounterAvita Health [facility]09-25-2024 Telephone encounter Note* Telephone Encounter - Yadira Barrera RN - 01/20/2024 11:13 AM EDT Previous refill was set to no print New rx pended to pool for signature. Last ov 03/31/2023 Upcoming ov on 02/19/2024 Labs 12/17/2023 [facility]-24-2024 Miscellaneous Notes* Telephone Encounter - Anabela Cueva CMA - 01/19/2024 9:09 AM EDT LM to call back and RS appt from today documented in this encounterAvita Health System [facility]09-24-2024 Telephone encounter Note* Telephone Encounter - Anabela Cueva CMA - 01/19/2024 9:09 AM EDT LM to call back and RS appt from today [facility]-24-2024 Miscellaneous Notes* Telephone Encounter - Anabela Cueva CMA - 01/19/2024 8:40 AM EDT Message is left for patient to call back and reschedule her appt for today. documented in this encounterAvita Health System [facility]09-24-2024 Telephone encounter Note* Telephone Encounter - Anabela Cueva CMA - 01/19/2024 8:40 AM EDT Message is left for patient to call back and reschedule her appt for today. [facility] Miscellaneous Notes* Telephone Encounter - Vicki Bailey CMA - 01/18/2024 10:32 AM EDT Called patient to remind them to bring their most current copy of their medication list with them to their appt. Patient verbalizes understanding. documented in this encounterAvita Health System [facility]09-23-2024 Telephone encounter Note* Telephone Encounter - Vicki Bailey CMA - 01/18/2024 10:32 AM EDT Called patient to remind them to bring their most current copy of their medication list with them to their appt. Patient verbalizes understanding. [facility]09-23-2024 Miscellaneous Notes* Telephone Encounter - Caitie Cabello RN - 01/18/2024 9:06 AM EDT 03/31/23 ov with upcoming appt 01/19/24 01/04/24 BMP PC from pt needing refill documented in this [facility]09-23-2024 Telephone encounter Note* Telephone Encounter - Caitie Cabello RN - 01/18/2024 9:06 AM EDT 03/31/23 ov with upcoming appt 01/19/24 01/04/24 BMP PC from pt needing refill [employer] [id number] History of Present illness Narrative* Eusebia Obregon Aleksandar, DO - 01/12/2024 10:45 AM EDT Images [...] nerve blocks in the past. Last saw [facility] painclinic 09/2022, PT and aquatic therapy ordered , also RX for zanaflex. Prior treatment: pain clinic [facility] 09/2022, [facility] ER 08/27, MRI T-spine 09/10/23, calcitonin NS, norco, Lumbar MRI [facility] 11/27/22, LT ST Trigger point injx 12/29/23 [...] tablet Take 80 mg by mouth Daily Rlbynsc-Nlmpsigzbbx-Hsedkgvyoa (Breztri Aerosphere) 160-9-4.8 MCG/ACT aerosol Inhale calcitonin, [...] HISTORY: Past Medical History: Diagnosis Date Agoraphobia ([facility]/HCC) Angina at rest ([facility]/HCC) Anxiety BiPAP (biphasic positive airway pressure) dependence Bipolar disorder ([facility]/HCC) Breast injury CAD (coronary artery disease) ([facility]/HCC) Chronic kidney disease Congestive heart failure (CHF) (CMS/HCC) COPD (chronic obstructive pulmonary disease) ([facility]/HCC) Dementia ([facility]/HCC) Depression ([facility]/HCC) GERD (gastroesophageal reflux disease) Liver disease Memory loss Myocardial infarction ([facility]/HCC) BONY (obstructive sleep apnea) Osteoarthritis Panic disorder ([facility]/HCC) Psoriasis ([facility]/HCC) PTSD (post-traumatic stress disorder) ([facility]) Shortness of breath Visual impairment ALLERGIES: Allergies [...] Dr. Huertas/guido Huertas D.O. documented in this encounterNorthwest Medical [id number] Miscellaneous Notes* Telephone Encounter - Sofya Coe CMA - 01/07/2024 8:21 AM EDT From Rajni Cardozo DO To [employer] Sent and Delivered 01/04/2024 9:12 PM Your kidney and potassium levels are stable from previous No changes today Left this message on her confidential voice mail documented in this encounterUC HealthAcross The [facility]09-12-2024 Telephone encounter Note* Telephone Encounter - Sofya Coe CMA - 01/07/2024 8:21 AM EDT From Rajni Cardozo DO To [employer], [employer] Dhillon Sent and Delivered 01/04/2024 9:12 PM Your kidney and potassium levels are stable from previous No changes today Left this message on her confidential voice mail [facility] [id number] History of Present illness Narrative* Rajni Cardozo DO - 01/04/2024 1:00 PM EDT IM PROGRESS NOTE Patient - Monet Recinos Age - 63 y.o. - 1960 ASSESSMENT & PLAN 1. Chronic respiratory failure with hypoxia and hypercapnia (CMS-HCC) - currently has portable oxygen unit which [...] Vitals reviewed. Exam conducted with a senior qa automation engineer present (Friend/POA). Constitutional: General: She is not [...] THE MORNING, Disp: 90 tablet, Rfl: 3 tshodjhpoj-kxhdmgnj-vguutveort (BREZTRI AEROSPHERE) 160-9-4.8 mcg/actuation HFA aerosol inhaler, [...] Detected Not Detected^Not Detected Final Specific gravity [facility] 12/17/2023 1.015 1.003 - 1.035 Final Leukocyte esterase [facility] 12/17/2023 Negative Negative^Negative Final Nitrite [facility] 12/17/2023 Negative Negative^Negative Final Ph 12/17/2023 6.0 5.0 - 8.5 Final Protein [facility] 12/17/2023 Negative Negative^Negative mg/dL Final Urine glucose [facility] 12/17/2023 250 (A) Negative^Negative mg/dL Final Ketones [facility] 12/17/2023 Negative Negative^Negative mg/dL Final Urobilinogen [facility] 12/17/2023 0.2 <1.1 eu/dL Final Bilirubin [facility] 12/17/2023 Negative Negative^Negative Final Hemoglobin [facility] 12/17/2023 Negative Negative^Negative Final Other Testing [...] Zambrano MD on 10/20/2023 8:22 PM Rajni Cardozo DO., [facility] Physicians Office: [phone] documented in this encounterAvita Health System [facility]09-04-2024 Miscellaneous Notes* Telephone Encounter - Monica Johnston CMA - 12/30/2023 4:51 PM EDT Pts friend called stated pt needs an order for o2 sent to [email or web address] fax # [phone] * Telephone Encounter - aRjni Cardozo DO - 12/30/2023 4:51 PM EDT Message noted. Order was written and faxed to [employer] today * Telephone Encounter - Monica Johnston CMA - 12/30/2023 4:51 PM EDT Ok thank you documented in this encounterAvita Health System [facility]09-04-2024 Telephone encounter Note* Telephone Encounter - Monica Johnston CMA - 12/30/2023 4:51 PM EDT Pts friend called stated pt needs an order for o2 sent to [email or web address] fax # [phone] [facility]09-04-2024 Telephone encounter Note* Telephone Encounter - Rajni Cardozo DO - 12/30/2023 4:51 PM EDT Message noted. Order was written and faxed to [facility] today [facility]09-04-2024 Telephone encounter Note* Telephone Encounter - Monica Johnston CMA - 12/30/2023 4:51 PM EDT Ok thank you [facility]09-03-2024 History of Present illness Narrative* Eusebia Huertas DO - 12/29/2023 10:45 AM EDTAssociated Order(s): Trigger Point Injection (CPT 20838 [place] 14195): left gluteus tej Post-Procedure Diagnose(s): Trigger point of left side of body Images from the original note were not included. HISTORY OF PRESENT ILLNESS: Monet Recinos is an 63 y.o. @ female. Chief complaint Thoracic pain Thoracic: Intermittent back pain over the years with flare up thoracic pain 4 months ago (08/24/23) [place] Tx at [facility] ER 08/27 with back pain, DX with compression FX T6 and PE-started on eliquis. Follow up with Dr Cardozo, calcitonin and norco RX. MRI T-spine done at [facility] 09/10/23. She notes pain in thoracic spine is much improved. She is walking unassisted today. She uses walkeras needed. She is complaining of LT sided low back pain x 2-3 weeks. Taking TYL/IBU, no relief. Denies injury.Pain with sit to stand. Pain at HS. Denies radiation. Denies N/T. Injections and nerve blocks yearsago many years ago. Prior treatment: pain clinic years ago, [facility] ER /3, MRI T-spine 09/10/23, calcitonin NS, norco MEDICATION: [...] tablet Take 80 mg by mouth Daily Xywzwpi-Gpigmcgeqri-Emuqivooal (Breztri Aerosphere) 160-9-4.8 MCG/ACT aerosol Inhale calcitonin, [...] HISTORY: Past Medical History: Diagnosis Date Agoraphobia ([facility]) Angina at rest ([facility]) Anxiety BiPAP (biphasic positive airway pressure) dependence Bipolar disorder ([facility]) Breast injury CAD (coronary artery disease) ([facility]) Chronic kidney disease Congestive heart failure (CHF) ([facility]) COPD (chronic obstructive pulmonary disease) ([facility] Dementia ([facility]) Depression ([facility]) GERD (gastroesophageal reflux disease) Liver disease Memory loss Myocardial infarction ([facility]) BONY (obstructive sleep apnea) Osteoarthritis Panic disorder ([facility]) Psoriasis ([facility]) PTSD (post-traumatic stress disorder) ([facility]) Shortness of breath Visual impairment ALLERGIES: Allergies [...] of body M79.10 Trigger Point Injection (CPT 69075 or 07836): left gluteus tej 2. Compression fracture of T6 vertebra with routine healing, subsequent encounter S22.050D XR spine 3. Compression fracture of T8 vertebra with routine healing, subsequent encounter S22.060D 4. Osteoporotic compression fracture of vertebra with routine healing, subsequent encounter M80.88XD Trigger Point Injection (CPT 59678 or 92858): left gluteus tej on 12/29/2023 2:58 PM [...] Dr. Huertas/guido Huertas D.O. documented in this encounterNorthwest Medical [id number] Miscellaneous Notes* Telephone Encounter - Monica Johnston [...] for [employer] , pts insurnace doesn't cover [employer]. So they have to send everything back [...] She gave me the phone number to [employer]: . Please call them to have them either fax us a O2 equipment order for me to complete, or get their fax number so I can send a new order for the oxygen equipment * Telephone Encounter - Tosin Reyes CMA - 12/24/2023 4:07 PM EDT There are 2 different number to contact for her. The CPAP is [phone] but they emailed me what they need for referral process. The oxygen is [facility] and left them a message to fax something for the referral. * Telephone Encounter - Rajni Cardozo DO - 12/24/2023 4:07 PM EDT Message noted. The CPAP number does not concern me, that is for the sleep clinic to handle However, I still have not received anything from [employer] documented in this encounterGifford Medical CenterRobin Hood Foundation [id number] Telephone encounter Note* Telephone Encounter - Monica [...] for [employer] , pts insurnace doesn't cover [employer]. So they have to send everything back [facility]08-29-2024 Telephone encounter Note* Telephone Encounter - Rajni [...] She gave me the phone number to [employer]: . Please call them to have them either fax us a O2 equipment order for me to complete, or get their fax number so I can send a new order for the oxygen equipment [facility]08-29-2024 Telephone encounter Note* Telephone Encounter - Tosin Reyes CMA - 12/24/2023 4:07 PM EDT There are 2 different number to contact for her. The CPAP is [phone] but they emailed me what they need for referral process. The oxygen is through [facility] through [employer] and left them a message to fax something for the referral. [facility]08-29-2024 Telephone encounter Note* Telephone Encounter - Rajni Cardozo DO - 12/24/2023 4:07 PM EDT Message noted. The CPAP number does not concern me, that is for the sleep clinic to handle However, I still have not received anything from [facility] [employer] [id number] Miscellaneous Notes* Telephone Encounter - Johnna Cortes - 12/17/2023 10:37 AM EDT Received call from Tung at sleep lab that [facility] called there stating pt does not qualify for thecontinuous Oxygen to be bled in with PAP. Will set up with PAP only. Per Dr Meadows, pt's February appt needs to be moved up for new face to face and repeat home O2 eval. Routed to Maryellen to schedule.Spoke to Concepcion at [facility] to inform will be retesting pt in order to try to qualify her for the oxygen. * Telephone Encounter - GLORIA Scott - 12/17/2023 10:37 AM EDT Kymberly called patient and moved patient's from February to 01/14/2024 at 3pm with SE in the [place] office. * Telephone Encounter - Johnna Cortes - 12/17/2023 10:37 AM EDT Thanks documented in this encounterAvita Health System Bucyrus Hospital08-22-2024 Miscellaneous Notes* Telephone Encounter - Tosin Reyes CMA - 12/17/2023 10:37 AM EDT Patient called and O2 dropped to 70's overnight and now she can barely keep it up to 90. I directedher to the ER. * Telephone Encounter - Rajni Cardozo DO - 12/17/2023 10:37 AM EDT Message noted. I agree documented in this encounterAvita Health System Bu[facility] Hospital08-22-2024 Telephone encounter Note* Telephone Encounter - Johnna Cortes - 12/17/2023 10:37 AM EDT Received call from Tung at sleep lab that [facility] called there stating pt does not qualify for thecontinuous Oxygen to be bled in with PAP. Will set up with PAP only. Per Dr Meadows, pt's November appt needs to be moved up for new face to face and repeat home O2 eval. Routed to Maryellen to schedule.Spoke to Concepcion at [facility] to inform will be retesting pt in order to try to qualify her for the oxygen. [facility]08-22-2024 Telephone encounter Note* Telephone Encounter - GLORIA Scott - 12/17/2023 10:37 AM EDT Kymberly called patient and moved patient's from February to 01/14/2024 at 3pm with SE in the [place] office. [facility]08-22-2024 Telephone encounter Note* Telephone Encounter - Johnna Cortes - 12/17/2023 10:37 AM EDT Thanks [facility]08-22-2024 Telephone encounter Note* Telephone Encounter - Tosin Reyes CMA - 12/17/2023 10:37 AM EDT Patient called and O2 dropped to 70's overnight and now she can barely keep it up to 90. I directedher to the ER. [facility]08-22-2024 Telephone encounter Note* Telephone Encounter - Rajni Cardozo DO - 12/17/2023 10:37 AM EDT Message noted. I agree [facility]08-20-2024 Miscellaneous Notes* Telephone Encounter - Johnna Cortes - 12/15/2023 1:43 PM EDT Message received from Vicki at [facility] that OON for PAP/ O2. Pt must use [employer] (fax number is location specific). Spoke to Ciarra at [facility] and for pt zip, she must use [place] location. Faxed all info to [phone] for setup with BiPAP and O2. Pt notified via phone/ my chart message also sent. Phnumber of [phone] also given to pt. documented in this encounterAvita Health System [facility]08-20-2024 Telephone encounter Note* Telephone Encounter - Johnna Cortes - 12/15/2023 1:43 PM EDT Message received from Vicki at [facility] that OON for PAP/ O2. Pt must use [employer] (fax number is location specific). Spoke to Ciarra at [facility] and for pt zip, she must use [place] location. Faxed all info to [phone] for setup with BiPAP and O2. Pt notified via phone/ my chart message also sent. Phnumber of [phone] also given to pt. [facility]08-15-2024 Miscellaneous Notes* Telephone Encounter - Kaia Jovel MD - 12/10/2023 10:23 AM EDT Patient of Dr. Meadows, BiPAP 14/9 cm of water with 3L/min supplement oxygen recommended, order formcomplete in [facility], please fax Results note sent to patient Titration study on 12/08/2023 (Wnmhgo=603.0 lbs; BMI=35.3 kg/m2) DIAGNOSIS: Obstructive Sleep Apnea [...] on a wedge cushion. documented in this encounterAvita Health System Bu[facility]rus Hospital08-15-2024 Telephone encounter Note* Telephone Encounter - Kaia Jovel MD - 12/10/2023 10:23 AM EDT Patient of Dr. Meadows, BiPAP 14/9 cm of water with 3L/min supplement oxygen recommended, order formcomplete in [employer], please fax Results note sent to patient Titration study on 12/08/2023 (Dejkmx=611.0 lbs; BMI=35.3 kg/m2) DIAGNOSIS: Obstructive Sleep Apnea [...] elevated such as on a wedge cushion. [employer] Work Phone: 1(697) 831-936107-25-2024 Miscellaneous Notes* Telephone Encounter - Tosin Reyes CMA - 11/19/2023 4:56 PM EDT Patient has been getting shoulder injections thru Dr. Castro and now they are asking for a referral toortho. * Telephone Encounter - Rajni Cardozo DO [...] PM EDT Patient notified documented in this encounterAvita Health System [facility]07-25-2024 Telephone encounter Note* Telephone Encounter - Tosin Reyes CMA - 11/19/2023 4:56 PM EDT Patient has been getting shoulder injections thru Dr. Castro and now they are asking for a referral toortho. [facility]07-25-2024 Telephone encounter Note* Telephone Encounter - Rajni Cardozo DO - 11/19/2023 4:56 PM EDT Message noted. Who is looking for the referral? If she is already getting injections, why does she need a new referral? [facility]07-25-2024 Telephone encounter Note* Telephone Encounter - Tosin Reyes CMA - 11/19/2023 4:56 PM EDT She has switched insurance and so they need a referral to Dr. Castro. [facility]07-25-2024 Telephone encounter Note* Telephone Encounter - Rajni Cardozo DO - 11/19/2023 4:56 PM EDT Message noted. I do not know what or why she is getting the injections for. I have not received any reports or feedback from Dr. Castro, therefore I am unable to make a referral. [facility]07-25-2024 Telephone encounter Note* Telephone Encounter - Tosin Reyes CMA - 11/19/2023 4:56 PM EDT Patient notified [facility]07-08-2024 History of Present illness Narrative* Rajni Cardozo DO - 11/02/2023 3:30 PM EDT IM PROGRESS NOTE Patient - Monet Recinos Age - 63 y.o. - 1960 ASSESSMENT & PLAN 1. Venous insufficiency of both lower extremities -secondary to chronic diastolic heart failure, in conjunction with extended dependent positioning of the legs -is on maximum dose diuretics with torsemide 80-120 mg daily -at this time I advised the patient to elevate her legs 30-40 minutes every morning and afternoon, as well as at nighttime -will order zippered compression stockings through [employer] to allow her to be more independent [...] acute cor pulmonale, unspecified pulmonary embolism type ([facility]) -has completed 2/3 months of anticoagulation [...] 3 times a day. No longer taking [place]. Did see Orthopedic surgery in follow-up, and [...] Vitals reviewed. Exam conducted with a senior qa automation engineer present (Friend/POA). Constitutional: General: She is not [...] THE MORNING, Disp: 90 tablet, Rfl: 3 nntsvsvuys-fwlzrbiw-rciihuzqqi (BREZTRI AEROSPHERE) 160-9-4.8 mcg/actuation HFA aerosol inhaler, [...] on 09/19/2023 12:42 AM Rajni Cardozo DO., [facility] Physicians Office: [phone] documented in this encounterAvita Health System [facility]07-05-2024 Miscellaneous Notes* Telephone Encounter - Nuha Nichole RN - 10/30/2023 7:30 AM EDT OV 08/03/23 BMP 09/30/23 documented in this encounterAvita Health System Bu[facility] Hospital07-05-2024 Telephone encounter Note* Telephone Encounter - Nuha Nichole RN - 10/30/2023 7:30 AM EDT OV 08/03/23 BMP 09/30/23 [facility]06-12-2024 Miscellaneous Notes* Telephone Encounter - Daisha Marquez CMA - 10/07/2023 3:08 PM EDT ----- Message from Victor Hugo Vincent DO sent at 10/06/2023 11:58 AM EDT ----- Call and let her know that her ultrasound and mammogram were normal. If she still has problems she should come back to see me. ThanksDr. Cornell documented in this [facility]06-12-2024 Telephone encounter Note* Telephone Encounter - Daisha Marquez CMA - 10/07/2023 3:08 PM EDT ----- Message from Victor Hugo Vincent DO sent at 10/06/2023 11:58 AM EDT ----- Call and let her know that her ultrasound and mammogram were normal. If she still has problems she should come back to see me. Thanks, Dr. Cornell [facility]06-07-2024 Miscellaneous Notes* Telephone Encounter - Nuha Nichole RN - 10/02/2023 12:38 AM EDT OV 08/03/23 BMP 09/30/23 documented in this encounterAvita Health System [facility]06-07-2024 Telephone encounter Note* Telephone Encounter - Nuha Nichole RN - 10/02/2023 12:38 AM EDT OV 08/03/23 BMP 09/30/23 [facility]06-05-2024 History of Present illness Narrative* Rajni Cardozo, - 09/30/2023 1:30 PM EDT IM PROGRESS NOTE Patient - Monet Recinos Age - 63 [facility] 1960 [id number] ASSESSMENT & PLAN 1. Closed wedge compression fracture of T6 vertebra with routine healing -reviewed orthopedic consult note with the patient, along with recommendations and goals of treatment -patient advised she cannot use ibuprofen, or any NSAID at the current time for her pain because ofher anticoagulation. -therefore, we will continue the H[place] 5-325 b.i.d. pain relief longer than anticipated -she has follow-up with Orthopedic surgery in several weeks, and if still has pain, may need to consider a kyphoplasty. -this could be accomplished by switching her to Lovenox for anticoagulation in the perioperative time 2. Acute pulmonary embolism without acute cor pulmonale, unspecified pulmonary embolism type (CMS-HCC) -patient once again advised she needs to [...] respiratory failure with hypoxia and hypercapnia (CMS-HCC) -continue oxygen support nocturnally and during the day as needed -continue Breztri 2 daily - CBC auto differential; Future 5. Chronic heart failure with preserved ejection fraction (CMS-HCC) -current GDMT includes Jardiance 10 mg daily, [...] taking salmon calcitonin nasal spray, cyclobenzaprine, and [place] 5-325 b.i.d. the pain is improved from initial, but still present on a dailybasis associated with leaning against her back, or prolonged walking or standing. She was seen by Orthopedic surgery regarding cough, but continued conservative treatment was recommended especially in light her current anticoagulation status. She is taking 1575-9673 mg ibuprofen daily try and help her [...] Vitals reviewed. Exam conducted with a senior qa automation engineer present (Friend/POA). Constitutional: General: She is not [...] THE MORNING, Disp: 90 tablet, Rfl: 3 gwtzqlaqtq-wheffzym-zbyjvwqcfr (BREZTRI AEROSPHERE) 160-9-4.8 mcg/actuation HFA aerosol inhaler, [...] on 07/24/2023 10:05 PM Rajni Cardozo DO., [facility] Physicians Office: [phone] documented in this encounterAvita Health System Bu[facility]05-30-2024 History of Present illness Narrative* Kacey Lamb Kat, ALLIANCES CONSULTANT-ROUTER SETTER - 09/24/2023 11:00 AM EDT Subjective Patient [...] note reviewed. Exam conducted with a senior qa automation engineer present (crisis specialist). Constitutional: General: She is in acute distress. [...] YONY Vazquez 09/24/23 1650 documented in this encounterAvita Health System Bu[facility]05-15-2024 History of Present illness Narrative* Rajni Cardozo, [...] discharge medication. Patient had been admitted to [facility] because of chest pain. Was sharp [...] Vitals reviewed. Exam conducted with a senior qa automation engineer present (Friend/POA). Constitutional: General: She is not [...] acute cor pulmonale, unspecified pulmonary embolism type ([facility]) -reviewed results of the CT scan/angiogram with [...] treatment -no changes today documented in this encounterAvita Health System [facility]04-22-2024 Miscellaneous Notes* Telephone Encounter - Monica Johnston [...] only one here Thursday documented in this encounterAvita Health System Bu[facility]04-22-2024 Telephone encounter Note* Telephone Encounter - Monica Johnston CMA - 08/17/2023 10:20 AM EDT Pt called stated that [facility] [employer] is waiting for a corrected RX for her portable O2 , stated it needs it sent today she is leaving town in the morning [facility] [employer] [id number] Telephone encounter Note* Telephone Encounter - Rajni Cardozo DO - 08/17/2023 10:20 AM EDT Message noted. It was corrected last week. Was it sent? [facility] [employer] [id number] Telephone encounter Note* Telephone Encounter - Cathleen Arreola - 08/17/2023 10:20 AM EDT Will get it out today, was the only one here Thursday [facility] [employer] [id number] Miscellaneous Notes* Telephone Encounter - Leona Gaffney - 08/17/2023 9:06 AM EDT 08/13 Order received Scheduled PAP @ [facility] on 12/06 My chart confirmation [facility] Medicare / Medicaid Pap Order and 06/25/23 Stephanie Wilson Notes Run with TCO2 monitoring, previously tried/failed CPAP. Low threshold to switch to BiPAP if patient intolerant documented in this encounterAv[facility] Telephone encounter Note* Telephone Encounter - Leona Gaffney - 08/17/2023 9:06 AM EDT 08/13 Order received Scheduled PAP @ [facility] on 12/06 My chart confirmation [facility] Medicare / Medicaid Pap Order and 06/25/23 Stephanie Meadows Epic Notes Run with TCO2 monitoring, previously tried/failed CPAP. Low threshold to switch to BiPAP if patient intolerant [facility]04-18-2024 Miscellaneous Notes* Telephone Encounter - Kaia Jovel [...] (AHI (3%)=35.8 events/hour; AHI (4%)=13.1 events/hour; Dani SpO2=83.0%;Zauuvp=857.0 lbs; BMI=38.2 kg/m2) DIAGNOSIS: Obstructive Sleep Apnea [...] - PLEASE FACILITATE THANKS documented in this encounterGifford Medical CenterSABIA04-18-2024 Telephone encounter Note* Telephone Encounter - Kaia [...] (AHI (3%)=35.8 events/hour; AHI (4%)=13.1 events/hour; Dani SpO2=83.0%;Jrokef=001.0 lbs; BMI=38.2 kg/m2) DIAGNOSIS: Obstructive Sleep Apnea [...] two hours. A CPAP titration is recommended. [facility] Work Phone: [phone] Telephone encounter Note* Telephone Encounter - Shari Garcia RN - 08/13/2023 2:39 PM EDT GÉNESIS - PLEASE FACILITATE THANKS [facility]04-18-2024 Miscellaneous Notes* Telephone Encounter - Sofya Coe CMA - 08/13/2023 10:36 AM EDT Anabela from Medical Services called because the order for her O2 has to say POC setting at 2L/Min viaNasal Cannula or her insurance will not cover it. They want us to fax the new order to [phone] * Telephone Encounter - Rajni Cardozo DO - 08/13/2023 10:36 AM EDT Message noted. A new order for POC setting at 2L/Min via Nasal Cannula was placed in her chart today. Please fax this to [facility] so she can get her portable O2 concentrator * Telephone Encounter - Cathleen Arreola - 08/13/2023 10:36 AM EDT Got it documented in this encounterAvita Health [facility]04-18-2024 Telephone encounter Note* Telephone Encounter - Sofya Coe CMA - 08/13/2023 10:36 AM EDT Anabela from Medical Services called because the order for her O2 has to say POC setting at 2L/Min viaNasal Cannula or her insurance will not cover it. They want us to fax the new order to [phone] [facility]04-18-2024 Telephone encounter Note* Telephone Encounter - Rajni Cardozo DO - 08/13/2023 10:36 AM EDT Message noted. A new order for POC setting at 2L/Min via Nasal Cannula was placed in her chart today. Please fax this to [facility] so she can get her portable O2 concentrator [facility]04-18-2024 Telephone encounter Note* Telephone Encounter - Cathleen Arreola - 08/13/2023 10:36 AM EDT Got it [employer] [id number] History of Present illness Narrative* Rajni Cardozo [...] Vitals reviewed. Exam conducted with a senior qa automation engineer present (Friend and POA). Constitutional: General: She [...] partial remission, most recent episode unspecified type ([facility]) - Stable - At next visit, consider weaning off propanolol and doxepin documented in this encounterAvita [facility]04-11-2024 Miscellaneous Notes* Telephone Encounter - GLORIA Scott - 08/06/2023 4:43 PM EDT Received call from patient in regard to her POC testing order, keno writer/runner informed patient that the order was sent to [facility] and that she should contact them if she does not hear from them by next week. Patient verbalized understanding. Patient also asked if she has a current prescription for Breztri, informed patient that a prescription for Breztri was sent to [facility] in [place] on 06/25/2023 with 10 refills, patient verbalized understanding. documented in this encounterAvita [facility]04-11-2024 Telephone encounter Note* Telephone Encounter - GLORIA Scott - 08/06/2023 4:43 PM EDT Received call from patient in regard to her POC testing order, keno writer/runner informed patient that the order was sent to [facility] and that she should contact them if she does not hear from them by next week. Patient verbalized understanding. Patient also asked if she has a current prescription for Breztri, informed patient that a prescription for Breztri was sent to [facility] in [place] on 06/25/2023 with 10 refills, patient verbalized understanding. [facility]04-05-20[facility] Miscellaneous Notes* Telephone Encounter - Vandana Resendiz - 07/31/2023 11:51 AM EDT Patient called asking about getting a rx for portable oxygen for a trip on 08/17 she is taking. Advised there is a note in for the doctor and that she would get return call once the doctor has responded. documented in this encounterAvita Health [facility]04-05-2024 Telephone encounter Note* Telephone Encounter - Vandana Resendiz - 07/31/2023 11:51 AM EDT Patient called asking about getting a rx for portable oxygen for a trip on 08/17 she is taking. Advised there is a note in for the doctor and that she would get return call once the doctor has responded. [facility]04-01-20[facility] Nurse Note* Gale Chiang RN - 07/27/2023 2:35 PM EDT Discharge instructions and medications reviewed with pt who verbalized understanding. Oxygen delivered by DME provider who instructed pt and her friend/roommate on use. PIV removed. Pt escorted to hospital for behavioral medicine in w/c where her friend was waiting to provide transportation to home. [facility]04-01-[facility] Nurse Note* Gale Chiang RN - 07/27/2023 2:35 PM EDT Discharge instructions and medications reviewed with pt who verbalized understanding. Oxygen delivered by DME provider who instructed pt and her friend/roommate on use. PIV removed. Pt escorted to lobby in w/c where her friend was waiting to provide transportation to home. documented in this encounterAvita Health System [facility]04-01-2024 Progress note* Discharge Planning Note - DEENA Carty - 07/27/2023 1:04 PM EDT Images from the original note were not included. DISCHARGE PLANNING NOTE Informed on careport from [facility]: Vicki that the home oxygen prescription is wrong, it does not match the home oxygen qualification. Pt needs oxygen with activity and not at rest: Dr Cardozo asked to correct order on [employer]. Vicki update on careport. Corrected oxygen order and face to face note sent via careport to Vicki at [facility] Await confirmation. DEENA Carty, 07/27/2023, [...] On Applied O2 With Exercise/Ambulation 95 % [facility]04-01-2024 Miscellaneous Notes* Discharge Planning Note - DEENA Carty - 07/27/2023 1:04 PM EDT Images from the original note were not included. DISCHARGE PLANNING NOTE Informed on careport from [facility] Vicki that the home oxygen prescription is wrong, it does not match the home oxygen qualification. Pt needs oxygen with activity and not at rest: Dr Cardozo asked to correct order on [employer]. Vicki update on careport. Corrected oxygen order [...] Referral sent to [facility], andOE Finch ([place]- P# ; F# ) ([place]- P# ; F# ) ([place]- P# ; F# ) ([place]- P# ; F# ) ([place]- P# ; F# ) ([place]- P# ; F# ) ([place]- P# [phone] ; F# [phone]) * Discharge Planning Note - DEENA Raines - 07/27/2023 11:06 AM EDT DISCHARGE PLANNING NOTE Tasked Transition Center to send referral to [facility] [email or web address] for home O2 with portability for DC today; requested delivery time of equipment. * Discharge Planning Note - DEENA Raines - 07/27/2023 10:21 AM EDT Images from the original note were not included. DISCHARGE PLANNING NOTE 07/27/23 1005 Discharge Disposition Discharge Disposition Home with Self Care County Information County of Residence [place] Patient Information Primary Caregiver Self Support System Immediate family;Extended family (roommate/friend/aid Norma, 3 children out of state) Stressors Type of stressor (does not endorse) Income Information Income Information Disability Referral To Community Resources Denies needs Discharge Planning Living Arrangements (with roommate Norma) Support Systems manager servicing/social media manager;Friends;Children;Therapist (friend Norma, 3 children out of state, psychiatrist, [employer] business case analyst) Assistance Needed walker, meals on wheel, [employer] Services Type of Residence Private residence Private Residence [address] [place] [address] Accessibility Steps into home Number of Steps 5 Home Care Services Yes Type of Home Care Services Home health aide;Meals on Wheels;Other (Comment) (P[employer] Services: Norma is paid aid for 2 hrs per day) Community Agencies Currently Utilized Mechanical Maintenance Foreman;Mental health centers (PASSPORT Intel Recruiter: Elise; Psychiatrist Dr. Collier, [facility]) Patient expects to be discharged to: [...] utilizing psychiatric services with Dr. Collier in [facility] for medical management; pt does not endorse any mental health concerns, negative [place] screen. Pt friend/roommate Norma provides transportation. Pt is utilizing [employer], meals on wheels & roommate Norma is pt paid care provider for 2 hours per day. Pt relayed she speaks with her daughters who live out of state most days by phone & her son as well; family provides natural supports. Patient's preferred pharmacy is [facility]. PCP verified as Dr. Rajni Cardozo. Update from attending, monitoring for home O2. Pt aware of home O2 evaluation; keno writer/runner reviewed [facility], pt preference is [employer]. Educated on [facility], pt does not endorse current needs. Opportunity [...] clean and dry. Skin protectant as needed. [place] pads in place. * Plan of Care - Mary Cee RN - 07/27/2023 1:31 AM EDT Problem: Pain Goal: Patient goal is pain score less than 4, able to rest, and participant in treatment plan as appropriate Description: INTERVENTIONS: 1. Encourage patient or legal telecommunications sales representative to report early pain and [...] per policy 9. Teach patient or legal telecommunications sales representative interventions for comforting Outcome: Progressing [...] Note: Evaluation of progress towards goal: 07/26/23 1923 Vital Signs Pulse 79 Heart Rate Source [...] Nebulizer Duration (Minutes) 10 Position High Abe[employer] * Telehealth Consult - Nathaniel Carlos MD [...] that there are some limitations compared to tpeu-wh-bauk evaluations. We elected to proceed. PULMONARY CONSULT [...] longer uses a BIPAP 01/28/23 Bipolar disorder ([facility] Breast injury CHF (congestive heart failure) ([facility]) Chipped tooth Chronic kidney disease COPD (chronic obstructive pulmonary disease) ([facility]) Coronary artery disease Dementia ([facility]) Depression Diarrhea frequent bouts /involuntary Dizziness GERD (gastroesophageal reflux disease) Headache History of coronary artery bypass graft 08/14/2020 Liver disease Low back pain Memory loss Myocardial infarction ([facility]) Apr 2009, swith stent placement Obesity BONY treated with BiPAP 07/31/2022 Osteoarthritis Panic disorder Psoriasis PTSD (post-traumatic stress disorder) Rotator cuff tear L Shortness of breath Sleep apnea Visual impairment glasses Past Surgical History: Procedure Laterality Date BREAST BIOPSY BREAST CYST EXCISION Cardiac catheterization N/A 01/09/2020 Performed by Yefri Khan MD at [facility] Cardiac catheterization-LV Cors N/A 08/06/2020 Performed by Hazel Painting MD at [facility] SECTION CHOLECYSTECTOMY COLONOSCOPY N/A 04/03/2017 Performed by Jose Beaver MD at [facility] Coronary angiogram and left ventricular gram/pressure N/A 01/09/2020 Performed by Yefri Khan MD at [facility] CORONARY ANGIOPLASTY WITH STENT PLACEMENT CORONARY ARTERY BYPASS GRAFT X4/ THOMPSON/ SVG X3 / RIGHT UPPER LEG OPEN VEIN HARVEST/ LEFT UPPER LEG OPEN VEING HARVEST /GINETTE N/A 08/13/2020 Performed by Leroy Meng MD at [facility] Drug eluting stent left anterior descending N/A 01/09/2020 Performed by Yefri Khan MD at [facility] EXCISION SEROMA LOWER EXTREMITY Left 10/07/2022 Performed by Victor Hugo Vincent DO at [facility] Intravascular ultrasound coronary N/A 08/06/2020 Performed by Hazel Painting MD at [facility] Intravascular ultrasound coronary N/A 01/09/2020 Performed by Yefri Khan MD at [facility] NOTCHARGED/Thrombolysis arterial initial treatment N/A 01/09/2020 Performed by Yefri Khan MD at [facility] TONSILLECTOMY Review of Systems [...] BY MOUTH IN THE MORNING 90 tablet bvkvzsgbbv-kqkerrad-hcyqkwxwqy (BREZTRI AEROSPHERE) 160-9-4.8 mcg/actuation HFA aerosol inhaler [...] min Stress: No Stress Concern Present (07/25/2023) [place] [employer] - Occupational Stress Questionnaire Feeling of Stress : Only a little Recent Concern: Stress - Stress Concern Present (07/25/2023) [place] [employer] - Occupational Stress Questionnaire Feeling of Stress : Very much Social Connections: Moderately Isolated (07/25/2023) Social Connection and Isolation Panel [NHANES] Frequency of Communication with Friends and Family: Three times a week Frequency of Social Gatherings with Friends and Family: Three times a week Attends Confucianist Services: More than 4 times per year [...] 2 L/min O2 Device: Nasal cannula Per vialannaho/ RN PHYSICAL EXAM: GEN: Pleasant, comfortable, cooperative, [...] Component Value Units Date/Time Blood culture #1 [[id number]] Collected: 07/25/231756 Specimen: Blood Updated: 07/26/23 1007 Culture NO GROWTH <24 HRS SARS/FLU A+B/RSV by NAAT/Molecular (M4RT Collection Tube) [[id number]] Collected: 07/25/23 175 Specimen: Nasopharynx Updated: 07/25/23 192 FLU A PCR Negative FLU B PCR Negative RSV by PCR Negative SARS CoV 2 BY PCR Not Detected Blood culture #2 [[id number]] Collected: 07/25/23 1745 Specimen: Blood Updated: 07/26/23 1007 Culture NO GROWTH <24 HRS SARS/FLU A+B/RSV by NAAT/Molecular (M4RT Collection Tube) [[id number]] Collected: 07/24/232149 Specimen: Nasopharynx Updated: 07/24/232243 FLU [...] Component Value Units Date/Time Blood culture #1 [[id number]] Collected: 07/25/231756 Specimen: Blood Updated: 07/26/23 1007 Culture NO GROWTH <24 HRS SARS/FLU A+B/RSV by NAAT/Molecular (M4RT Collection Tube) [[id number]] Collected: 07/25/231749 Specimen: Nasopharynx Updated: 07/25/23 192 FLU A PCR Negative FLU B PCR Negative RSV by PCR Negative SARS CoV 2 BY PCR Not Detected Blood culture #2 [[id number]] Collected: 07/25/23 174 Specimen: Blood Updated: 07/26/23 1007 Culture NO GROWTH <24 HRS SARS/FLU A+B/RSV by NAAT/Molecular (M4RT Collection Tube) [[id number]] Collected: 07/24/232149 Specimen: Nasopharynx Updated: 07/24/232243 FLU A PCR Negative FLU B PCR Negative RSV by PCR Negative SARS CoV 2 BY PCR Not Detected Lines/Drains Peripheral IV 07/25/23 Right Antecubital (Active) Line Status Saline locked 07/26/23 08 Site Assessment Clean;Dry;Intact 07/26/23 08 Dressing Type Transparent 07/26/23 08 Dressing Status Clean;Dry;Intact 07/26/23 08 Dressing Intervention Initial dressing 07/25/23 1640 Specimen [...] regurgitation or stenosis. Mitral Valve: There is cerij-cu-tgzn regurgitation. There is no evidence of mitral valve stenosis. Tricuspid Valve: There is moderate regurgitation. RVSP estimated at 40-45 mmHg. Echo complete W/ contrast Result Date: 11/19/2021 Left Ventricle: Systolic function is normal with an ejection fraction of 55-60%. Aortic Valve: There is no regurgitation or stenosis. Mitral Valve: There is crpxq-wf-rvdf regurgitation. There is no evidence of mitral [...] Description: INTERVENTIONS: 1. Encourage patient or legal telecommunications sales representative to report early pain and [...] per policy 9. Teach patient or legal telecommunications sales representative interventions for comforting Outcome: Progressing Note: Evaluation of progress towards goal: Continue to assess for pain and address accordingly Problem: Moderate - High Risk Fall Score Description: Shearer Fall Score of =/> 25 or indicated by [facility] Assessment Goal: Patient should be free from fall Description: Interventions: 1. [place] to environment 2. Hourly rounds addressing the [...] non-skid footwear 11. Teach patient and patient telecommunications sales representative to maintain environment for safety [...] (cane, walker) within reach 19. Request patient telecommunications sales representative bring adaptive equipment/mobility aids from home or obtain and provide as needed 20. Consult pharmacy regarding effects of med's affecting mobility, cognition, and alternatives 21. Obtain physician order for PT if risk factors associated with mobility are present 22. Obtain physician order for OT as appropriate 23. Utilize diversional activities 24. Educate patient and patient telecommunications sales representative how to maintain a safe environment during visitationtimes (notify nurse prior to leaving bedside) 25. Consider appropriateness of medical or non-medical office manager 26. Set up voiding schedule as appropriate (every 2 hours) Outcome: Progressing Note: Evaluation of progress towards goal: PT is free of falls, hourly rounding is completed, area is kept clear. * Plan of Care - Christy Andrew RCP [...] Description: INTERVENTIONS: 1. Encourage patient or legal telecommunications sales representative to report early pain and [...] per policy 9. Teach patient or legal telecommunications sales representative interventions for comforting Outcome: Progressing [...] at the bedside 7. Instruct patient/ patient telecommunications sales representative about use of safety devices 8. Include patient/ patient telecommunications sales representative in decisions related to safety Outcome: Progressing Note: Evaluation of progress towards goal: Remains free from injury. Safety precautions maintained. Problem: Knowledge Deficit Goal: Patient/patient telecommunications sales representative demonstrates understanding of disease process, [...] be free from fall Description: Interventions: 1. [place] to environment 2. Hourly rounds addressing the [...] non-skid footwear 11. Teach patient and patient telecommunications sales representative to maintain environment for safety [...] (cane, walker) within reach 19. Request patient telecommunications sales representative bring adaptive equipment/mobility aids from home or obtain and provide as needed 20. Consult pharmacy regarding effects of med's affecting mobility, cognition, and alternatives 21. Obtain physician order for PT if risk factors associated with mobility are present 22. Obtain physician order for OT as appropriate 23. Utilize diversional activities 24. Educate patient and patient telecommunications sales representative how to maintain a safe environment during visitationtimes (notify nurse prior to leaving bedside) 25. Consider appropriateness of medical or non-medical office manager 26. Set up voiding schedule as appropriate [...] denies shortness of breath. documented in this encounterGifford Medical CenterSABIA04-01-2024 Progress note* Discharge Planning Note - Concepcion Vargas - 07/27/2023 11:12 AM EDT DISCHARGE PLANNING NOTE Referral sent to [facility], Santosh Finch ([place]- P# ; F# ) ([place]- P# ; F# ) ([place]- P# ; F# ) ([place]- P# ; F# ) ([place]- P# ; F# ) ([place]- P# ; F# ) ([place]- P# [phone] ; F# [phone]) [facility] Progress note* Discharge Planning Note - DEENA Raines - 07/27/2023 11:06 AM EDT DISCHARGE PLANNING NOTE Tasked Transition Center to send referral to [employer] [facility] [email or web address] for home O2 with portability for DC today; requested delivery time of equipment. [employer] [id number] Hospital course Narrative* Rajni Cardozo DO - 07/27/2023 10:45 AM EDT Images from the original note were not included. HOSPITAL DISCHARGE NOTE Patient Name: Monet Recinos : 1960 PCP: Rajni Cardozo Jr, DO Date of admission: 07/25/2023 Date of discharge: 07/27/2023 Discharge diagnoses: Principal Problem: Chronic respiratory failure with hypoxia and hypercapnia (CMS-HCC) Active Problems: Atherosclerotic heart disease of [place] coronary artery with other forms of angina pectoris ([facility]) Essential hypertension Bipolar 2 disorder, major depressive episode ([facility]) Consultants: Consulting Providers Provider Service Specialty Nathaniel [...] ARIPiprazole 15 mg tablet Commonly known as: ABILIFArmaan aspirin 81 mg atorvastatin 80 mg tablet Commonly known as: LIPITOR TAKE 1 TABLET (80 MG TOTAL) BY MOUTH IN THE MORNING JYOTI AEROSPHERE 160-9-4.8 mcg/actuation HFA aerosol inhaler Generic drug: ksqdbvkllf-vznknoaw-kexzkjafun Inhale 2 puffs in the morning and [...] on discharging this patient. documented in this encounterAvita [facility] History of Present illness Narrative* Rebecca Martinez RCP - 07/27/2023 10:36 AM EDTSummary: [...] depression, and bipolar disorder. documented in this encounterGifford Medical CenterRobin Hood Foundation [id number] Progress note* Discharge Planning Note - DEENA Raines - 07/27/2023 10:21 AM EDT Images from the original note were not included. DISCHARGE PLANNING NOTE 07/27/23 1005 Discharge Disposition Discharge Disposition Home with Self Care County Information [facility] Patient Information Primary Caregiver Self Support System Immediate family;Extended family (roommate/friend/aid Norma, 3 children out of state) Stressors Type of stressor (does not endorse) Income Information Income Information Disability Referral To Community Resources Denies needs Discharge Planning Living Arrangements (with roommate Norma) Support Systems manager servicing/social media manager;Friends;Children;Therapist (friend Norma, 3 children out of state, psychiatrist, [employer] business case analyst) Assistance Needed walker, meals on wheel, [employer] Services Type of Residence Private residence Private Residence [facility] Accessibility Steps into home Number of Steps 5 Home Care Services Yes Type of Home Care Services Home health aide;Meals on Wheels;Other (Comment) (PASSPORT Services: Norma is paid aid for 2 hrs per day) Community Agencies Currently Utilized Mechanical Maintenance Foreman;Mental health centers (PASSPORT Intel Recruiter: Elise; Psychiatrist Dr. Collier [facility]) Patient expects to be discharged to: [...] utilizing psychiatric services with Dr. Collier in [facility] for medical management; pt does not endorse any mental health concerns, negative [place] screen. Pt friend/roommate Norma provides transportation. Pt is utilizing [employer], meals on wheels & roommate Norma is pt paid care provider for 2 hours per day. Pt relayed she speaks with her daughters who live out of state most days by phone & her son as well; family provides natural supports. Patient's preferred pharmacy is [facility]. PCP verified as Dr. Rajni Cardozo. Update from attending, monitoring for home O2. Pt aware of home O2 evaluation; keno writer/runner reviewed [employer], pt preference is [employer]. Educated on [facility], pt does not endorse current needs. Opportunity provided to ask questions, pt does not endorse any at this time. Plan to prevent readmission is for pt to follow up with PCP, pt prefers to make own appointment, follow DC instructions including medication compliance and to reach out to health care team as needed. Care Navigation following for safe care transition. [facility]04-01-2024 Plan of care note* Plan of Care [...] clean and dry. Skin protectant as needed. [place] pads in place. [facility]04-01-2024 Plan of care note* Plan of Care - Mary Cee RN - 07/27/2023 1:31 AM EDT Problem: Pain Goal: Patient goal is pain score less than 4, able to rest, and participant in treatment plan as appropriate Description: INTERVENTIONS: 1. Encourage patient or legal telecommunications sales representative to report early pain and [...] per policy 9. Teach patient or legal telecommunications sales representative interventions for comforting Outcome: Progressing Note: Evaluation of progress towards goal: patient verbalized no pain [facility] [employer] [id number] Plan of care note* Plan of Care [...] Nebulizer Duration (Minutes) 10 Position High [employer] [id number] Consult note* Telehealth Consult - Nathaniel Carlos [...] that there are some limitations compared to [id number] evaluations. We elected to proceed. PULMONARY CONSULT [...] longer uses a BIPAP 01/28/23 Bipolar disorder ([facility] Breast injury CHF (congestive heart failure) ([facility]) Chipped tooth Chronic kidney disease COPD (chronic obstructive pulmonary disease) ([facility]) Coronary artery disease Dementia ([facility]) Depression Diarrhea frequent bouts /involuntary Dizziness GERD (gastroesophageal reflux disease) Headache History of coronary artery bypass graft 08/14/2020 Liver disease Low back pain Memory loss Myocardial infarction (CMS-HCC) Apr 2009, swith stent placement Obesity BONY treated with BiPAP 07/31/2022 Osteoarthritis Panic disorder Psoriasis PTSD (post-traumatic stress disorder) Rotator cuff tear L Shortness of breath Sleep apnea Visual impairment glasses Past Surgical History: Procedure Laterality Date BREAST BIOPSY BREAST CYST EXCISION Cardiac catheterization N/A 01/09/2020 Performed by Yefri Khan MD at [facility] Cardiac catheterization-LV Cors N/A 08/06/2020 Performed by Hazel Painting MD at [facility] SECTION CHOLECYSTECTOMY COLONOSCOPY N/A 04/03/2017 Performed by Jose Beaver MD at [facility] Coronary angiogram and left ventricular gram/pressure N/A 01/09/2020 Performed by Yefri Khan MD at [facility] CORONARY ANGIOPLASTY WITH STENT PLACEMENT CORONARY ARTERY BYPASS GRAFT X4/ THOMPSON/ SVG X3 / RIGHT UPPER LEG OPEN VEIN HARVEST/ LEFT UPPER LEG OPEN VEING HARVEST /GINETTE N/A 08/13/2020 Performed by Leroy Meng MD at [facility] Drug eluting stent left anterior descending N/A 01/09/2020 Performed by Yefri Khan MD at [facility] EXCISION SEROMA LOWER EXTREMITY Left 10/07/2022 Performed by Victor Hugo Vincent DO at [facility] Intravascular ultrasound coronary N/A 08/06/2020 Performed by Hazel Painting MD at [facility] Intravascular ultrasound coronary N/A 01/09/2020 Performed by Yefir Khan MD at [facility] NOTCHARGED/Thrombolysis arterial initial treatment N/A 01/09/2020 Performed by Yefri Khan MD at [facility] TONSILLECTOMY Review of Systems [...] BY MOUTH IN THE MORNING 90 tablet lhlifiviwp-iglwfyrv-dzrofzrnhb (BREZTRI AEROSPHERE) 160-9-4.8 mcg/actuation HFA aerosol inhaler [...] min Stress: No Stress Concern Present (07/25/2023) [employer] [place] [employer] - Occupational Stress Questionnaire Feeling of Stress : Only a little Recent Concern: Stress - Stress Concern Present (07/25/2023) [place] [employer] - Occupational Stress Questionnaire Feeling of Stress : Very much Social Connections: Moderately Isolated (07/25/2023) Social Connection and Isolation Panel [NHANES] Frequency of Communication with Friends and Family: Three times a week Frequency of Social Gatherings with Friends and Family: Three times a week Attends Confucianist Services: More than 4 times per year [...] Component Value Units Date/Time Blood culture #1 [[id number]] Collected: 07/25/231756 Specimen: Blood Updated: 07/26/23 1007 Culture NO GROWTH <24 HRS SARS/FLU A+B/RSV by NAAT/Molecular (M4RT Collection Tube) [[id number]] Collected: 07/25/231749 Specimen: Nasopharynx Updated: 07/25/231924 FLU A PCR Negative FLU B PCR Negative RSV by PCR Negative SARS CoV 2 BY PCR Not Detected Blood culture #2 [[id number]] Collected: 07/25/231744 Specimen: Blood Updated: 07/26/23 1007 Culture NO GROWTH <24 HRS SARS/FLU A+B/RSV by NAAT/Molecular (M4RT Collection Tube) [[id number]] Collected: 07/24/232149 Specimen: Nasopharynx Updated: 07/24/232243 FLU [...] Component Value Units Date/Time Blood culture #1 [[id number]] Collected: 07/25/231756 Specimen: Blood Updated: 07/26/23 1007 Culture NO GROWTH <24 HRS SARS/FLU A+B/RSV by NAAT/Molecular (M4RT Collection Tube) [[id number]] Collected: 07/25/231749 Specimen: Nasopharynx Updated: 07/25/231924 FLU A PCR Negative FLU B PCR Negative RSV by PCR Negative SARS CoV 2 BY PCR Not Detected Blood culture #2 [[id number]] Collected: 07/25/231744 Specimen: Blood Updated: 07/26/23 1007 Culture NO GROWTH <24 HRS SARS/FLU A+B/RSV by NAAT/Molecular (M4RT Collection Tube) [[id number]] Collected: 07/24/232149 Specimen: Nasopharynx Updated: 07/24/232243 FLU [...] regurgitation or stenosis. Mitral Valve: There is qjowk-ue-azuq regurgitation. There is no evidence of mitral valve stenosis. Tricuspid Valve: There is moderate regurgitation. RVSP estimated at 40-45 mmHg. Echo complete W/ contrast Result Date: 11/19/2021 Left Ventricle: Systolic function is normal with an ejection fraction of 55-60%. Aortic Valve: There is no regurgitation or stenosis. Mitral Valve: There is qymkk-pp-ctpz regurgitation. There is no evidence of mitral valve stenosis. Tricuspid Valve: There is moderate regurgitation. RVSP calculated at 42 mmHg. RVSP is based on RA pressure of 3 mmHg. ASSESSMENT / PLAN: COPD - BD Acute hypoxic resp failure - O2; wean as tolerated ? Home O2 BONY/OHS BPAP as tolerated Sleep study scheduled for next week DW patient [employer] Work Phone: [phone]) 975-542303-31-2024 Plan of care note* Plan of Care - Gale Chiang RN - 07/26/2023 10:00 AM EDT Problem: Pain Goal: Patient goal is pain score less than 4, able to rest, and participant in treatment plan as appropriate Description: INTERVENTIONS: 1. Encourage patient or legal telecommunications sales representative to report early pain and [...] per policy 9. Teach patient or legal telecommunications sales representative interventions for comforting Outcome: Progressing Note: Evaluation of progress towards goal: Continue to assess for pain and address accordingly Problem: Moderate - High Risk Fall Score Description: Shearer Fall Score of =/> 25 or indicated by [facility] Assessment Goal: Patient should be free from fall Description: Interventions: 1. [place] to environment 2. Hourly rounds addressing the [...] non-skid footwear 11. Teach patient and patient telecommunications sales representative to maintain environment for safety [...] (cane, walker) within reach 19. Request patient telecommunications sales representative bring adaptive equipment/mobility aids from home or obtain and provide as needed 20. Consult pharmacy regarding effects of med's affecting mobility, cognition, and alternatives 21. Obtain physician order for PT if risk factors associated with mobility are present 22. Obtain physician order for OT as appropriate 23. Utilize diversional activities 24. Educate patient and patient telecommunications sales representative how to maintain a safe environment during visitationtimes (notify nurse prior to leaving bedside) 25. Consider appropriateness of medical or non-medical office manager 26. Set up voiding schedule as appropriate (every 2 hours) Outcome: Progressing Note: Evaluation of progress towards goal: PT is free of falls, hourly rounding is completed, area is kept clear. [facility]03-31-2024 Plan of care note* Plan of Care - Christylincoln Andrew RCP - 07/26/2023 7:33 AM EDT [...] Nebulizer Duration (Minutes) 10 Position Semi [employer] [facility]03-31-2024 Plan of care note* Plan of Care - Lissette Mathews RN - 07/26/2023 4:47 AM EDT Problem: Pain Goal: Patient goal is pain score less than 4, able to rest, and participant in treatment plan as appropriate Description: INTERVENTIONS: 1. Encourage patient or legal telecommunications sales representative to report early pain and [...] per policy 9. Teach patient or legal telecommunications sales representative interventions for comforting Outcome: Progressing [...] at the bedside 7. Instruct patient/ patient telecommunications sales representative about use of safety devices 8. Include patient/ patient telecommunications sales representative in decisions related to safety Outcome: Progressing Note: Evaluation of progress towards goal: Remains free from injury. Safety precautions maintained. Problem: Knowledge Deficit Goal: Patient/patient telecommunications sales representative demonstrates understanding of disease process, [...] Score of =/> 25 or indicated by [facility] Assessment Goal: Patient should be free from fall Description: Interventions: 1. [place] to environment 2. Hourly rounds addressing the [...] non-skid footwear 11. Teach patient and patient telecommunications sales representative to maintain environment for safety [...] (cane, walker) within reach 19. Request patient telecommunications sales representative bring adaptive equipment/mobility aids from home or obtain and provide as needed 20. Consult pharmacy regarding effects of med's affecting mobility, cognition, and alternatives 21. Obtain physician order for PT if risk factors associated with mobility are present 22. Obtain physician order for OT as appropriate 23. Utilize diversional activities 24. Educate patient and patient telecommunications sales representative how to maintain a safe environment during visitationtimes (notify nurse prior to leaving bedside) 25. Consider appropriateness of medical or non-medical office manager 26. Set up voiding schedule as appropriate [...] distress noted. PT denies shortness of breath. [employer] [id number] History and physical note* Rajni Gimenez MD [...] longer uses a BIPAP 01/28/23 Bipolar disorder ([facility] Breast injury CHF (congestive heart failure) ([facility]) Chipped tooth Chronic kidney disease COPD (chronic obstructive pulmonary disease) ([facility]) Coronary artery disease Dementia ([facility]) Depression Diarrhea frequent bouts /involuntary Dizziness GERD (gastroesophageal reflux disease) Headache History of coronary artery bypass graft 08/14/2020 Liver disease Low back pain Memory loss Myocardial infarction ([facility]) Apr 2009, swith stent placement Obesity BONY treated with BiPAP 07/31/2022 Osteoarthritis Panic disorder Psoriasis PTSD (post-traumatic stress disorder) Shortness of breath Sleep apnea Visual impairment glasses PAST SURGICAL HISTORY: Past Surgical History: Procedure Laterality Date BREAST BIOPSY BREAST CYST EXCISION Cardiac catheterization N/A 01/09/2020 Performed by Yefri Khan MD at [facility] Cardiac catheterization-LV Cors N/A 08/06/2020 Performed by Hazel Painting MD at [facility] SECTION CHOLECYSTECTOMY COLONOSCOPY N/A 04/03/2017 Performed by Jose Beaver MD at [facility] Coronary angiogram and left ventricular gram/pressure N/A 01/09/2020 Performed by Yefri Khan MD at [facility] CORONARY ANGIOPLASTY WITH STENT PLACEMENT CORONARY ARTERY BYPASS GRAFT X4/ THOMPSON/ SVG X3 / RIGHT UPPER LEG OPEN VEIN HARVEST/ LEFT UPPER LEG OPEN VEING HARVEST /GINETTE N/A 08/13/2020 Performed by Leroy Meng MD at [facility] Drug eluting stent left anterior descending N/A 01/09/2020 Performed by Yefri Khan MD at [facility] EXCISION SEROMA LOWER EXTREMITY Left 10/07/2022 Performed by Victor Hugo Vincent DO at [facility] Intravascular ultrasound coronary N/A 08/06/2020 Performed by Hazel Painting MD at [facility] Intravascular ultrasound coronary N/A 01/09/2020 Performed by Yefri Khan MD at [facility] NOTCHARGED/Thrombolysis arterial initial treatment N/A 01/09/2020 Performed by Yefri Khan MD at [facility] TONSILLECTOMY Travel History Travel [...] min Stress: No Stress Concern Present (07/25/2023) [employer] [employer] - Occupational Stress Questionnaire Feeling of Stress : Only a little Recent Concern: Stress - Stress Concern Present (07/25/2023) [place] [employer] - Occupational Stress Questionnaire Feeling of Stress : Very much Social Connections: Moderately Isolated (07/25/2023) Social Connection and Isolation Panel [NHANES] Frequency of Communication with Friends and Family: Three times a week Frequency of Social Gatherings with Friends and Family: Three times a week Attends Confucianist Services: More than 4 times per year [...] BY MOUTH IN THE MORNING 90 tablet amhkqvekmb-cweamnwv-mhqjcoflhr (BREZTRI AEROSPHERE) 160-9-4.8 mcg/actuation HFA aerosol inhaler [...] is stable and further pending her course. [employer] [id number] History and physical note* Rajni Gimenez MD [...] longer uses a BIPAP 01/28/23 Bipolar disorder ([facility]) Breast injury CHF (congestive heart failure) ([facility]) Chipped tooth Chronic kidney disease COPD (chronic obstructive pulmonary disease) ([facility]) Coronary artery disease Dementia ([facility]) Depression Diarrhea frequent bouts /involuntary Dizziness GERD (gastroesophageal reflux disease) Headache History of coronary artery bypass graft 08/14/2020 Liver disease Low back pain Memory loss Myocardial infarction (CMS-HCC) Apr 2009, swith stent placement Obesity BONY treated with BiPAP 07/31/2022 Osteoarthritis Panic disorder Psoriasis PTSD (post-traumatic stress disorder) Shortness of breath Sleep apnea Visual impairment glasses PAST SURGICAL HISTORY: Past Surgical History: Procedure Laterality Date BREAST BIOPSY BREAST CYST EXCISION Cardiac catheterization N/A 01/09/2020 Performed by Yefri Khan MD at [facility] Cardiac catheterization-LV Cors N/A 08/06/2020 Performed by Hazel Painting MD at [facility] SECTION CHOLECYSTECTOMY COLONOSCOPY N/A 04/03/2017 Performed by Jose Beaver MD at [facility] Coronary angiogram and left ventricular gram/pressure N/A 01/09/2020 Performed by Yefri Khan MD at [facility] CORONARY ANGIOPLASTY WITH STENT PLACEMENT CORONARY ARTERY BYPASS GRAFT X4/ THOMPSON/ SVG X3 / RIGHT UPPER LEG OPEN VEIN HARVEST/ LEFT UPPER LEG OPEN VEING HARVEST /GINETTE N/A 08/13/2020 Performed by Leroy Meng MD at [facility] Drug eluting stent left anterior descending N/A 01/09/2020 Performed by Yefri Khan MD at [facility] EXCISION SEROMA LOWER EXTREMITY Left 10/07/2022 Performed by Victor Hugo Vincent DO at [facility] Intravascular ultrasound coronary N/A 08/06/2020 Performed by Hazel Painting MD at [facility] Intravascular ultrasound coronary N/A 01/09/2020 Performed by Yefri Khan MD at [facility] NOTCHARGED/Thrombolysis arterial initial treatment N/A 01/09/2020 Performed by Yefri Khan MD at [facility] TONSILLECTOMY Travel History Travel [...] min Stress: No Stress Concern Present (07/25/2023) [place] [employer] - Occupational Stress Questionnaire Feeling of Stress : Only a little Recent Concern: Stress - Stress Concern Present (07/25/2023) [place] [employer] - Occupational Stress Questionnaire Feeling of Stress : Very much Social Connections: Moderately Isolated (07/25/2023) Social Connection and Isolation Panel [NHANES] Frequency of Communication with Friends and Family: Three times a week Frequency of Social Gatherings with Friends and Family: Three times a week Attends Confucianist Services: More than 4 times per year [...] BY MOUTH IN THE MORNING 90 tablet miqaynibbd-fyukfdlk-vauyzminhd (BREZTRI AEROSPHERE) 160-9-4.8 mcg/actuation HFA aerosol inhaler [...] further pending her course. documented in this encounterUC Healthfruux [id number] Note Procedure: Chest x-ray performed Number of views:2 History:Shortness of breath Comparison:07/24/2023 Findings: The heart and lungs show no acute findings, and the mediastinum and satnam are grossly negative . Impression: 1. No acute change. Finalized by Abdlerahman Patel MD on 07/25/2023 5:16 [id number] Physician Emergency department Note* Mary Lock MD [...] - Primary Other Visit Diagnoses COPD exacerbation ([facility]) Relevant Medications ipratropium-albuteroL (DUONEB) 0.5 mg-3 mg(2.5 mg base)/3 mL nebulizer solution 3 mL (Completed) dexAMETHasone sodium phos (PF) (DECADRON) injection 10 mg ipratropium-albuteroL (DUONEB) 0.5 mg-3 mg(2.5 mg base)/3 mL nebulizer solution 3 mL Acute respiratory failure with hypoxia and hypercapnia ([facility]) Past Medical History: Diagnosis Date Agoraphobia Angina at rest Anxiety BiPAP (biphasic positive airway pressure) dependence Patient states she no longer uses a BIPAP 01/28/23 Bipolar disorder ([facility]) Breast injury CHF (congestive heart failure) ([facility]) Chipped tooth COPD (chronic obstructive pulmonary disease) ([facility]) Coronary artery disease Dementia ([facility]) Depression GERD (gastroesophageal reflux disease) History of coronary artery bypass graft 08/14/2020 Liver disease Low back pain Myocardial infarction ([facility]) Apr 2009, swith stent placement Obesity BONY treated with BiPAP 07/31/2022 Osteoarthritis Panic disorder PTSD (post-traumatic stress disorder) Sleep apnea Visual impairment glasses Past Surgical History: Procedure Laterality Date BREAST BIOPSY BREAST CYST EXCISION Cardiac catheterization N/A 01/09/2020 Performed by Yefri Khan MD at [facility] Cardiac catheterization-LV Cors N/A 08/06/2020 Performed by Hazel Painting MD at [facility] SECTION CHOLECYSTECTOMY COLONOSCOPY N/A 04/03/2017 Performed by Jose Beaver MD at [facility] Coronary angiogram and left ventricular gram/pressure N/A 01/09/2020 Performed by Yefri Khan MD at [facility] CORONARY ANGIOPLASTY WITH STENT PLACEMENT CORONARY ARTERY BYPASS GRAFT X4/ THOMPSON/ SVG X3 / RIGHT UPPER LEG OPEN VEIN HARVEST/ LEFT UPPER LEG OPEN VEING HARVEST /GINETTE N/A 08/13/2020 Performed by Leroy Meng MD at [facility] Drug eluting stent left anterior descending N/A 01/09/2020 Performed by Yefri Khan MD at [facility] EXCISION SEROMA LOWER EXTREMITY Left 10/07/2022 Performed by Victor Hugo Vincent DO at [facility] Intravascular ultrasound coronary N/A 08/06/2020 Performed by Hazel Painting MD at [facility] Intravascular ultrasound coronary N/A 01/09/2020 Performed by Yefri Khan MD at [facility] NOTCHARGED/Thrombolysis arterial initial treatment N/A 01/09/2020 Performed by Yefri Khan MD at [facility] TONSILLECTOMY Travel Screening Question [...] PCP, will discuss admit with him. [AV] 173 Dr. Carrion covering for Dr. Cardozo, he accepted admission kindly. [AV] 1738 Discussed with RT Vicki to place patient on BIPAP and need for VBG. BIPAP will help with patient's tachypnea and wheezing. [AV] [address] Carrion messaged regarding updates. Patient remains AAOx4 and GCS 15, speaking in full sentences at this time. There is no community affairs manager available in the ED, so will workon [...] [AV] ED Course User Index [AV] Mary Lcok MD Clinical Impressions as of 07/25/231926 COPD exacerbation ([facility]) Acute respiratory failure with hypoxia and hypercapnia ([facility]) Hypoxia MDM Medical Decision Making [facility] documented for Dr. Lock. Chart Reviewed. Date: [...] premix) (0 mg intravenous Stop Bag 07/25/23 183) ipratropium-albuteroL (DUONEB) 0.5 mg-3 mg(2.5 mg base)/3 mL nebulizer solution 3 mL (3 mL nebulization Given 07/25/23 1731) Medication List None Diagnosis: 1. Hypoxia 2. COPD exacerbation (CMS-HCC) 3. Acute respiratory failure with hypoxia and hypercapnia (CMS-HCC) Disposition: Patient's disposition: Admit Patient's condition is stable. Critical Care time: 30 minutes Provider Statement By electronically signing this emergency patient record, the Emergency Physician/BABBITTER/PA-C attests that all entries made into the electronic medical record by arianna John prior to the Physician/BABBITTER/PA-C signature reflect an accurate accounting of the evaluation and care rendered by that Emergency Physician/BABBITTER/PA-C. The Emergency Physician/BABBITTER/PA-C assumes full responsibility for those entries. The Emergency Physician/BABBITTER/PA-C also attests that any patient testing or treatment that was instituted by nursing staff in accordance to Emergency Department Preemptive Guidelines have been reviewed and unless so stated elsewhere in this patient chart, the Physician/BABBITTER/PA-C agrees with the testing and care provided. No Additional Attestations Heena Tran 07/25/23 1728 Heena Tran 07/25/23 1811 Heena Tran 07/25/23 1812 Heena Tran 07/25/23 1812 Heena Tran 07/25/23 1824 Mary Lock MD 07/25/23 1829 Heena Tran 07/25/23 1837 Heena Tran 07/25/23 1905 Mary Lock MD 07/25/23 1922 Mary Lock MD 07/25/231926 [facility]03-30-2024 Emergency department Note* Mary Lock MD - [...] - Primary Other Visit Diagnoses COPD exacerbation ([facility]) Relevant Medications ipratropium-albuteroL (DUONEB) 0.5 mg-3 mg(2.5 mg base)/3 mL nebulizer solution 3 mL (Completed) dexAMETHasone sodium phos (PF) (DECADRON) injection 10 mg ipratropium-albuteroL (DUONEB) 0.5 mg-3 mg(2.5 mg base)/3 mL nebulizer solution 3 mL Acute respiratory failure with hypoxia and hypercapnia ([facility]) Past Medical History: Diagnosis Date Agoraphobia Angina at rest Anxiety BiPAP (biphasic positive airway pressure) dependence Patient states she no longer uses a BIPAP 01/28/23 Bipolar disorder ([facility]) Breast injury CHF (congestive heart failure) ([facility]) Chipped tooth COPD (chronic obstructive pulmonary disease) ([facility]) Coronary artery disease Dementia ([facility]) Depression GERD (gastroesophageal reflux disease) History of coronary artery bypass graft 08/14/2020 Liver disease Low back pain Myocardial infarction ([facility]) Apr 2009, swith stent placement Obesity BONY treated with BiPAP 07/31/2022 Osteoarthritis Panic disorder PTSD (post-traumatic stress disorder) Sleep apnea Visual impairment glasses Past Surgical History: Procedure Laterality Date BREAST BIOPSY BREAST CYST EXCISION Cardiac catheterization N/A 01/09/2020 Performed by Yefri Khan MD at [facility] Cardiac catheterization-LV Cors N/A 08/06/2020 Performed by Hazel Painting MD at [facility] SECTION CHOLECYSTECTOMY COLONOSCOPY N/A 04/03/2017 Performed by Jose Beaver MD at [facility] Coronary angiogram and left ventricular gram/pressure N/A 01/09/2020 Performed by Yefri Khan MD at [facility] CORONARY ANGIOPLASTY WITH STENT PLACEMENT CORONARY ARTERY BYPASS GRAFT X4/ THOMPSON/ SVG X3 / RIGHT UPPER LEG OPEN VEIN HARVEST/ LEFT UPPER LEG OPEN VEING HARVEST /GINETTE N/A 08/13/2020 Performed by Leroy Meng MD at [facility] Drug eluting stent left anterior descending N/A 01/09/2020 Performed by Yefri Khan MD at [facility] EXCISION SEROMA LOWER EXTREMITY Left 10/07/2022 Performed by Victor Hugo Vincent DO at [facility] Intravascular ultrasound coronary N/A 08/06/2020 Performed by Hazel Painting MD at [facility] Intravascular ultrasound coronary N/A 01/09/2020 Performed by Yefri Khan MD at [facility] NOTCHARGED/Thrombolysis arterial initial treatment N/A 01/09/2020 Performed by Yefri Khan MD at [facility] TONSILLECTOMY Travel Screening Question [...] Re-Evaluation ED Course ED Course as of 07/25/23 1927 Sat Jul 25, [id number] Chart reviewed. Yesterday's ER workup reviewed: Dimer negative Trop negative BNP negative Patient established with Dr. Meadows. She had recommended BIPAP. Patient does not use. [AV] 1729 Dr. Cardozo noted as PCP, will discuss admit with him. [AV] 1738 Dr. Selbyd covering for Dr. Cardozo, he accepted admission kindly. [AV] 1738 Discussed with RT Cohen to place patient on BIPAP and need for VBG. BIPAP will help with patient's tachypnea and wheezing. [AV] [address] Carrion messaged regarding updates. Patient remains AAOx4 and GCS 15, speaking in full sentences at this time. There is no community affairs manager available in the ED, so will workon [...] Clinical Impressions as of 07/25/231926 COPD exacerbation ([facility]) Acute respiratory failure with hypoxia and hypercapnia ([facility]) Hypoxia MDM Medical Decision Making Heena Bob ([facility]) documented for Dr. Lock. Chart Reviewed. Date: [...] premix) (0 mg intravenous Stop Bag 07/25/23 183) ipratropium-albuteroL (DUONEB) 0.5 mg-3 mg(2.5 mg base)/3 mL nebulizer solution 3 mL (3 mL nebulization Given 07/25/23 173) Medication List None Diagnosis: 1. Hypoxia 2. COPD exacerbation (CMS-HCC) 3. Acute respiratory failure with hypoxia and hypercapnia (CMS-HCC) Disposition: Patient's disposition: Admit Patient's condition is stable. Critical Care time: 30 minutes Provider Statement By electronically signing this emergency patient record, the Emergency Physician/BABBITTER/PA-C attests that all entries made into the electronic medical record by arianna John prior to the Physician/BABBITTER/PA-C signature reflect an accurate accounting of the evaluation and care rendered by that Emergency Physician/BABBITTER/PA-C. The Emergency Physician/BABBITTER/PA-C assumes full responsibility for those entries. The Emergency Physician/BABBITTER/PA-C also attests that any patient testing or treatment that was instituted by nursing staff in accordance to Emergency Department Preemptive Guidelines have been reviewed and unless so stated elsewhere in this patient chart, the Physician/BABBITTER/PA-C agrees with the testing and care provided. No Additional Attestations Heena Tran 07/25/23 1728 Heena Tran 07/25/23 1811 Heena Tran 07/25/23 1812 Heena Tran 07/25/23 1812 Heena Tran 07/25/23 1824 Mary Lock MD 07/25/23 1829 Heena Tran 07/25/23 1837 Heena Tran 07/25/23 1905 Mary Lock MD 07/25/23 192 Mary Lock MD 07/25/231926 * Jade Alvarez RN - 07/25/2023 4:31 PM EDT Patient presents with complaints of difficulty breathing x's 1 week. Patient states she was seen inthe ER yesterday and diagnosed with Right Lower Lobe pneumonia. SpO2 on room air 85% [facility] Emergency department Triage note* Jade Alvarez RN - 07/25/2023 4:31 PM EDT Patient presents with complaints of difficulty breathing x's 1 week. Patient states she was seen inthe ER yesterday and diagnosed with Right Lower Lobe pneumonia. SpO2 on room air 85% [facility] History of Present illness Narrative* Rajni Cardozo, - 07/01/2023 2:15 PM EST IM PROGRESS NOTE Patient - Monet Recinos [facility] - 63 [facility] 1960 [id number] ASSESSMENT & PLAN 1. Fibromyalgia syndrome -ongoing [...] strengthening. 2. Stage 3a chronic kidney disease ([facility]) -recent GFR 45 -again is on multiple [...] Chronic heart failure with preserved ejection fraction ([facility]) -GDMT currently includes beta-georgi, SGLT 2 agent, [...] Vitals reviewed. Exam conducted with a senior qa automation engineer present (Friend/POA). Constitutional: General: She is not [...] THE MORNING, Disp: 90 tablet, Rfl: 3 apuycoawkd-ehcqkbut-uclwalmuja (BREZTRI AEROSPHERE) 160-9-4.8 mcg/actuation HFA aerosol inhaler, [...] measurable pneumothorax. Right costophrenic angle excluded from uqovy-rl-mbwk. Impression: 1. Persistent effusions, with or without [...] on 04/13/2023 1:48 PM Rajni Cardozo DO., [facility] Office: [phone] documented in this encounterAv[facility] Miscellaneous Notes* Telephone Encounter - Heena Mendoza - 06/25/2023 2:20 PM EST Order received Scheduled SN at [facility] on 08/11/23 Confirmation emailed [facility] Medicare Dual Complete Medicaid [place] SN Order and 06/25/23 Stephanie Wilson Notes Quick transition to BIPAP- WITH TCO2 monitoring documented in this [facility] Telephone encounter Note* Telephone Encounter - Heena Mendoza - 06/25/2023 2:20 PM EST Order received Scheduled SN at [facility] on 08/11/23 Confirmation emailed [facility] Medicare Dual Complete Medicaid [place] SN Order and 06/25/23 Stephanie Meadows Epic Notes Quick transition to BIPAP- WITH TCO2 monitoring [facility]02-29-2024 History of Present illness Narrative* Grace Meadows, DO - 06/25/2023 10:00 AM EST Images from the original note were not included. [facility] Pulmonary And Sleep Progress Note Patient - [...] but also refused. She was admitted to [facility] ICU and seen by Pulmonary there. [...] assess for acuity. Dr. Grace Meadows DO. [facility] Pulmonary & Critical Care Office: [phone] documented in this encounterAv[facility] Miscellaneous Notes* Telephone Encounter - Bipin Allen - 06/25/2023 9:54 AM EST Pt called in to inform that her battery but she is getting it jumped now, she stated that she will still make it to her 10am appt today w/SE Pls advise pt documented in this [facility]02-29-2024 Telephone encounter Note* Telephone Encounter - Bipin Allen - 06/25/2023 9:54 AM EST Pt called in to inform that her battery but she is getting it jumped now, she stated that she will still make it to her 10am appt today w/SE Pls advise pt [facility]02-05-2024 History of Present illness Narrative* Rajni Cardozo, [...] history. Most recently had prolonged hospitalization at [facility] due to severe pneumonia, and was on [...] Vitals reviewed. Exam conducted with a senior qa automation engineer present (Friend/POA). Constitutional: General: She is not [...] Chronic heart failure with preserved ejection fraction ([facility]) - Basic Metabolic Panel; Future - CBC auto differential; Future - TSH with Reflex; Future - reviewed the notes from the recent admission to the. -medication had been changed. Repeat lab as above, and adjust medications as needed to maintain heart failure control without dehydration and kidney injury. Bipolar disorder in partial remission, most recent episode unspecified type ([facility]) -patient with longstanding mental health issues including [...] all these medications. Atherosclerotic heart disease of [place] coronary artery with other forms of angina pectoris ([facility]) -previous CABG -currently aspirin 81 mg daily, atorvastatin and beta-georgi in the form of propanolol [place] -no changes in current regimen BMI 40.0-44.9, adult ([facility]) .- Patient extremely overweight -reviewed need to [...] of medications as above documented [facility] [id number] Miscellaneous Notes* Telephone Encounter - GLORIA Scott - 05/18/2023 12:35 PM EST Patient called and stated that she was recently discharged from [facility] on 05/15/2023.Patient stated that she was in the hospital from 04/13/2023 - 04/29/2023, which she was then placedat [place] due to being on a ventilator. Patient [...] GLORIA Scott - 05/18/2023 12:35 PM EST Website Programmer contacted patient and informed her of medication [...] will go to ED. documented in this encounterAv[facility] Telephone encounter Note* Telephone Encounter - GLORIA Scott - 05/18/2023 12:35 PM EST Patient called and stated that she was recently discharged from [facility] on 05/15/2023.Patient stated that she was in the hospital from 04/13/2023 - 04/29/2023, which she was then placedat [place] due to being on a ventilator. Patient [...] with BMI 39 Please review and advise. [facility]01-22-2024 Telephone encounter Note* Telephone Encounter - Grace Meadows DO - 05/18/2023 12:35 PM EST Rx sent for doxycycline x 10 days. Needs appt in clinic in [place] [employer] [id number] Telephone encounter Note* Telephone Encounter - GLORIA Scott - 05/18/2023 12:35 PM EST Website Programmer contacted patient and informed her of medication [...] stated that she will go to ED. [facility]08-17-2023 Evaluation note* Encounter Date Diagnosis Assessment [...] patient is severely deconditioned I had her business analytics specialist my office for at least 10 minutes [...] unspecified whether sciatica present (ICD-10 - M54.50) [employer] Other evaluation noteNo assessment information available [facility] Work Phone: Evaluation note* Diagnosis Left shoulder pain, unspecified chronicity- Primary Arthritis of left shoulder region documented in this encounter [facility] HealthcareEvaluation [facility]* Diagnosis Trigger point of left side of body- Primary Arthritis of left sacroiliac joint (CMS/HCC) Lumbosacral pain Pain of left sacroiliac joint documented in this encounter [facility]* Diagnosis Chronic obstructive pulmonary disease, unspecified COPD type (CMS/HCC)- Primary Chronic respiratory failure with hypoxia and hypercapnia (CMS/HCC) Cigarette smoker Tobacco use disorder documented in this encounter [facility] HealthcareEvaluation note* Diagnosis Trigger point of left side of body- Primary documented in this encounter [facility]* Diagnosis Trigger point of left side of body- Primary Compression fracture of T6 vertebra with routine healing, subsequent encounter Compression fracture of T8 vertebra with routine healing, subsequent encounter Osteoporotic compression fracture of vertebra with routine healing, subsequent encounter documented in this encounter [facility] HealthcareEvaluation note* Diagnosis Atherosclerosis of [place] coronary artery of [place] heart without angina pectoris Hx of hyperlipidemia [facility] Diagnosis Peripheral polyneuropathy [facility] Diagnosis BONY (obstructive sleep apnea)- Primary Obstructive sleep apnea (adult) (pediatric) Hypoxemia associated with sleep documented [facility] this [facility]* Diagnosis Closed wedge compression fracture of T6 vertebra with routine healing- Primary Acute pulmonary embolism without acute cor pulmonale, unspecified pulmonary embolism type ([facility]) Venous insufficiency of both lower extremities Chronic respiratory failure with hypoxia and hypercapnia (CMS-HCC) Chronic heart failure with preserved ejection fraction ([facility]) Spinal stenosis of lumbar region with neurogenic claudication Peripheral polyneuropathy B12 deficiency [facility] Diagnosis Chronic heart failure with preserved ejection fraction (CMS-HCC) Atherosclerosis of [place] coronary artery of [place] heart without angina pectoris [facility] Diagnosis Closed wedge compression fracture of T6 vertebra with routine healing [facility] Diagnosis Closed wedge compression fracture of T6 vertebra with routine healing- Primary Acute pulmonary embolism without acute cor pulmonale, unspecified pulmonary embolism type ([facility]) Spinal stenosis of lumbar region with neurogenic claudication [facility] Diagnosis Gastro-esophageal reflux disease without esophagitis [facility] Diagnosis Spinal stenosis of lumbar region with neurogenic claudication- Primary [facility] Diagnosis Closed wedge compression fracture of T6 vertebra with routine healing [facility] Diagnosis Chronic heart failure with preserved ejection fraction (CMS-HCC)- Primary Bipolar disorder in partial remission, most recent episode unspecified type ([facility]) Atherosclerotic heart disease of [place] coronary artery with other forms of angina pectoris (CMS-HCC) BMI 40.0-44.9, adult ([facility]) BONY treated with BiPAP [facility] Diagnosis Flu-like symptoms- Primary Community acquired pneumonia, unspecified laterality Chronic heart failure with preserved ejection fraction ([facility]) Community acquired pneumonia, unspecified laterality Chronic heart failure with preserved ejection fraction ([facility]) [facility] Diagnosis Shortness of breath Chronic heart failure with preserved ejection fraction ([facility]) [facility] Diagnosis BONY treated with BiPAP- Primary Chronic obstructive pulmonary disease, unspecified COPD type ([facility]) Shortness of breath Cigarette nicotine dependence in remission [facility] Diagnosis Venous insufficiency of both lower extremities- Primary Chronic heart failure with preserved ejection fraction ([facility]) Acute pulmonary embolism without acute cor pulmonale, unspecified pulmonary embolism type ([facility]) B12 deficiency [facility] Diagnosis Fibromyalgia syndrome Unspecified myalgia and myositis documented [facility] Diagnosis Fibromyalgia syndrome- Primary Unspecified myalgia and myositis Stage 3a chronic kidney disease ([facility]) BONY treated with BiPAP Chronic heart failure with preserved ejection fraction ([facility]) Obesity (BMI 30-39.9) [facility] Diagnosis Chronic respiratory failure with hypoxia and hypercapnia ([facility])- Primary COPD exacerbation ([facility]) Obstructive chronic bronchitis with exacerbation Acute respiratory failure with hypoxia and hypercapnia ([facility]) Hypoxia Hypoxemia Chronic respiratory failure with hypoxia and hypercapnia ([facility]) Bipolar 2 disorder, major depressive episode ([facility]) Essential hypertension Unspecified essential hypertension Atherosclerotic heart disease of [place] coronary artery with other forms of angina pectoris ([facility]) [facility] Diagnosis Unilateral groin pain, right- Primary Spinal stenosis of lumbar region with neurogenic claudication Chronic respiratory failure with hypoxia and hypercapnia ([facility]) Chronic heart failure with preserved ejection fraction ([facility]) BONY treated with BiPAP Bipolar disorder in partial remission, most recent episode unspecified type ([facility]) [facility] Diagnosis BONY treated with BiPAP [facility] Diagnosis Spinal stenosis of lumbar region with neurogenic claudication documented [facility] Diagnosis Chronic respiratory failure with hypoxia and hypercapnia (CMS-HCC)- Primary BOYN treated with BiPAP Spinal stenosis of lumbar region with neurogenic claudication Chronic heart failure with preserved ejection fraction (CMS-HCC) [facility] Diagnosis Chronic heart failure with preserved ejection fraction (CMS-HCC) documented [facility] Diagnosis Spinal stenosis of lumbar region with neurogenic claudication documented [facility] Diagnosis Chronic heart failure with preserved ejection fraction (CMS-HCC) [facility] Diagnosis Chronic heart failure with preserved ejection fraction (CMS-HCC) [facility] Diagnosis Atherosclerotic heart disease of [place] coronary artery with other forms of angina pectoris ([facility])- Primary [facility]* Diagnosis IFG (impaired fasting glucose)- Primary Peripheral polyneuropathy Stage 3a chronic kidney disease ([facility]) Chronic heart failure with preserved ejection fraction ([facility]) Atherosclerotic heart disease of [place] coronary artery with other forms of angina pectoris ([facility]) [facility] Diagnosis Gastro-esophageal reflux disease without esophagitis documented [facility] Diagnosis Contusion of lower leg, unspecified laterality, initial encounter- Primary [facility] Diagnosis IFG (impaired fasting glucose)- Primary Chronic obstructive pulmonary disease, unspecified COPD type ([facility]) Stage 3a chronic kidney disease ([facility]) Chronic respiratory failure with hypoxia and hypercapnia ([facility]) Chronic heart failure with preserved ejection fraction ([facility]) Bipolar 2 disorder, major depressive episode ([facility]) BMI 40.0-44.9, adult ([facility]) Atherosclerotic heart disease of [place] coronary artery with other forms of angina pectoris ([facility]) B12 deficiency Peripheral polyneuropathy Arthritis of left sacroiliac joint ([facility]) [facility] Diagnosis Chronic heart failure with preserved ejection fraction (CMS-HCC) Atherosclerosis of [place] coronary artery of [place] heart without angina pectoris documented [facility] this encounter [facility]* Diagnosis Gastro-esophageal reflux disease without esophagitis documented in this encounter [facility]* Diagnosis Chronic heart failure with preserved ejection fraction (CMS-HCC)- Primary Atherosclerotic heart disease of [place] coronary artery with other forms of angina pectoris Hx of CABG Postsurgical aortocoronary bypass status documented in this encounter [facility]* Diagnosis Chronic obstructive pulmonary disease, unspecified COPD type ([facility])- Primary Chronic respiratory failure with hypoxia and hypercapnia ([facility]) BONY (obstructive sleep apnea) Obstructive sleep apnea (adult) (pediatric) [facility] Cervicogenic headache- Primary Headache Orthostatic hypotension Chronic heart failure with preserved ejection fraction ([facility]) Fibromyalgia syndrome Unspecified myalgia and myositis documented [facility] this [facility]* Diagnosis Peripheral polyneuropathy Cervicogenic headache Headache [facility] Diagnosis Peripheral polyneuropathy [facility] Diagnosis Chronic heart failure with preserved ejection fraction (CMS-HCC)- Primary Pulmonary hypertension ([facility]) Other chronic pulmonary heart diseases Nonrheumatic tricuspid valve regurgitation Essential hypertension Unspecified essential hypertension Atherosclerosis of [place] coronary artery of [place] heart without angina pectoris History of four vessel coronary artery bypass graft NSTEMI (non-ST elevated myocardial infarction) ([facility]) Acute myocardial infarction, subendocardial infarction, episode of care unspecified [facility] Diagnosis Chronic heart failure with preserved ejection fraction ([facility])- Primary Essential hypertension Unspecified essential hypertension Pulmonary hypertension ([facility]) Other chronic pulmonary heart diseases Nonrheumatic tricuspid valve regurgitation Atherosclerosis of [place] coronary artery of [place] heart without angina pectoris History of four vessel coronary artery bypass graft [facility] Diagnosis Microcytic anemia- Primary Unspecified iron deficiency anemia Gastro-esophageal reflux disease without esophagitis Stage 3a chronic kidney disease ([facility]) Spinal stenosis of lumbar region with neurogenic claudication [facility] Diagnosis Atherosclerotic heart disease of [place] coronary artery with other forms of angina pectoris [facility] note* Diagnosis Chronic diastolic heart failure (CMS-HCC)- Primary Chronic diastolic heart failure Pulmonary hypertension (CMS-HCC) Other chronic pulmonary heart diseases Nonrheumatic tricuspid valve regurgitation documented [facility] Diagnosis Chronic heart failure with preserved ejection fraction (CMS-HCC)- Primary [facility] [...] surgery Hospitalization History see above surg. hx. Ob[employer] Other Hospital Discharge instructionsNot on filedocumented in [...] encounterProMedica Health SystemInstructionsNot on filedocumented in this encounterProC[facility] SystemInstructionsNot on filedocumented in this encounterProBryce Hospital Health SystemInstructionsNot on filedocumented in this encounterSumma Health SystemInstructions* Attachments The following attachments cannot be sent through Care Everywhere. * Esophagitis (Macedonian) * Patellar Tendinopathy (Macedonian) documented in this encounterProB[facility]ce Hospital Health SystemInstructionsNot on file documented in this encounterProBryce Hospital Health SystemInstructionsNot on file documented in this encounterProCleveland Clinic [facility] SystemInstructionsNot on file documented in this encounterProCleveland Clinic [facility] SystemInstructionsNot on file documented in this encounterSumma Health SystemInstructionsNot on file documented in this encounterSumma Health System Summary Purpose Family History No Family History Records FoundNo Family History Records FoundNo Family History Records FoundNo Family History Records FoundNo Family History Records FoundNo Family History Records FoundNo Family History Records FoundNo Family History Records Found Advance Directives Advance Directive Response Recorded Date/ Time Advance Directives No December 3:14pm Documents on File Type Date Recorded Patient Legal Associate Expl anation Durable Power of Loop Tacker 05/15/2023 8:14 AM Living Will 12/19/2021 11:54 AM [place]IV[place] Living Will 11/22/2021 1:59 PM Durable Power of Loop Tacker 11/22/2021 1:58 PM Date Activated Date Inactivated [...] Documents on File Type Date Recorded Patient Legal Associate Expl anation Durable Power of Loop Tacker 05/15/2023 8:14 AM Living Will 12/19/2021 11:54 AM [place]IV[place] Living Will 11/22/2021 1:59 PM Durable Power of Loop Tacker 11/22/2021 1:58 PM Date Activated Date Inactivated [...] Documents on File Type Date Recorded Patient Legal Associate Expl anation DNR Physician Order 12/03/2024 3:17 AM DNR Comfort Care 12/03/24 Durable Power of Loop Tacker 05/15/2023 8:14 AM Living Will 12/19/2021 11:54 AM [place] & DPOA Living Will 11/22/2021 1:59 PM Durable Power of Loop Tacker 11/22/2021 1:58 PM Date Activated Date Inactivated [...] Follow-up with primary care provider Rajni Cardozo, [address] [place] [address] Referral ID Status Reason Start Date Expiration Date V isits Requested Visits Authorized [id number] Pending Review 07/27/2023 07/26/2024 1 1 Specialty Diagnoses / Procedures Referred By Contac t Referred To Contact Procedures Adult diet Rajni Cardozo, [address] [place] [address] Referral ID Status Reason Start Date Expiration Date V isits Requested Visits Authorized [id number] Pending Review 07/27/2023 07/26/2024 1 1 Specialty Diagnoses / Procedures Referred By Contac t Referred To Contact Home Health Services Diagnoses Chronic heart failure with preserved ejection fraction (CMS-HCC) Rajni Cardozo, [address] [place] [address] [facility] [address] [place] [address] Phone: [phone] Fax: [phone] Referral ID Status Reason Start Date Expiration Date Visits Requested Visits Authorized [id number] Pending Review Patient Preference 07/01/2023 06/30/2024 1 1 Specialty Diagnoses / Procedures Referred By Contac t Referred To Contact Diagnoses BONY treated with BiPAP Procedures Split Night Sleep Study DoriGrace, DO [address] [address] Referral ID Status Reason Start Date Expiration Date V isits Requested Visits Authorized [id number] Pending Review 06/25/2023 06/24/2024 1 1 Specialty Diagnoses / Procedures Referred By Contac t Referred To Contact Diagnoses BONY (obstructive sleep apnea) Hypoxemia associated with sleep Procedures Polysomnography 4 or more parameters with PAP titration Grace Meadows, DO [address] [address] Referral ID Status Reason Start Date Expiration Date V isits Requested Visits Authorized [id number] Pending Review 08/14/2023 08/13/2024 1 1 Specialty Diagnoses / Procedures Referred By Contac t Referred To Contact Diagnoses Trigger point of left side of body Procedures Trigger Point Injection ([place] [address] [place] [address]): left gluteus tej [facility] [address] [place] [address] Referral ID Status Reason Start Date Expiration Date V isits Requested Visits Authorized [id number] Incomplete 12/29/2023 06/26/2024 1 1 Specialty Diagnoses / Procedures Referred By Contac t Referred To Contact Orthopaedic Surgery Diagnoses Left shoulder pain, unspecified chronicity Procedures L Inj/Asp: L subacromial bursa Eusebia Huertas, DO [address] [place] [address] Referral ID Status Reason Start Date Expiration Date V isits Requested Visits Authorized [id number] Authorized 01/26/2024 07/24/2024 1 1 Additional Source Comments INFORMATION SOURCE (unrecogn ized section and content) DATE CREATED AUTHOR 02/03/2018 [facility] DATE CREATED AUTHOR AUTHOR'S ORGANIZ ATION 12/21/2022 [facility] DATE CREATED AUTHOR AUTHOR'S ORGANIZ ATION 05/03/2023 [facility] DATE CREATED AUTHOR AUTHOR'S ORGANIZ ATION 07/10/2024 [facility] DATE CREATED AUTHOR AUTHOR'S ORGANIZ ATION 09/24/2024 [facility]IC DATE CREATED AUTHOR AUTHOR'S ORGANIZ ATION 12/17/2024 [facility] DATE CREATED AUTHOR AUTHOR'S ORGANIZ ATION 12/24/2024 [facility] DATE CREATED AUTHOR AUTHOR'S ORGANIZ ATION 02/11/2025 [facility] Care Teams (unrecognized sec tion and content) Team Status: Active Member Role Status Dates Myriam Fowler PA-C Primary Care Provider Activ e Team Status: Inactive Member Role Status Dates Myriam Fowler PA-C Primary Care Provider Activ e John Carson MD Attending Provider Active Slasher Runner Relationship Specialty Start Date End Date Rajni Cardozo MD [address] [place] [address] PCP - General Internal Medicine 08/11/23 Slasher Runner Relationship Specialty Start Date End Date Rajni Cardozo MD [address] [place] [address] PCP - General Internal Medicine 08/11/23 Slasher Runner Relationship Specialty Start Date End Date Rajni Cardozo MD [address] [place] [address] PCP - General Internal Medicine 08/11/23 Slasher Runner Relationship Specialty Start Date End Date Rajni Cardozo MD [address] [place] [address] PCP - General Internal Medicine 08/11/23 Slasher Runner Relationship Specialty Start Date End Date Rajni Cardozo MD [address] [place] [address] PCP - General Internal Medicine 08/11/23 Slasher Runner Relationship Specialty Start Date End Date Rajni Cardozo MD [address] [place] [address] PCP - General Internal Medicine 08/11/23 Slasher Runner Relationship Specialty Start Date End Date Rajni Cardozo MD [address] [facility] [place] [place] [address] PCP - General Internal Medicine 08/11/23 Slasher Runner Relationship Specialty Start Date End Date Rajni Cardozo MD [address] [place] [address] PCP - General Internal Medicine 08/11/23 Slasher Runner Relationship Specialty Start Date End Date Rajni Cardozo MD [address] [facility] [place] [place] [address] PCP - General Internal Medicine 08/11/23 Slasher Runner Relationship Specialty Start Date End Date Rajni Cardozo DO [address] [place] [address] PCP - General Internal Medicine 12/17/23 Slasher Runner Relationship Specialty Start Date End Date Rajni Cardozo DO [address] [facility] [place] [address] PCP - General Internal Medicine 12/17/23 Slasher Runner Relationship Specialty Start Date End Date Rajni Cardozo DO [address] [place] [address] PCP - General Internal Medicine 07/01/23 Slasher Runner Relationship Specialty Start Date End Date Rajni Cardozo DO [address] [place] [address] PCP - General Internal Medicine 07/01/23 Slasher Runner Relationship Specialty Start Date End Date Rajni Cardozo DO [address] [facility] [place] [address] PCP - General Internal Medicine 07/01/23 Slasher Runner Relationship Specialty Start Date End Date Rajni Cardozo DO [address] [place] [address] PCP - General Internal Medicine 07/01/23 Slasher Runner Relationship Specialty Start Date End Date Rajni Cardozo DO [address] [facility] [place] [address] PCP - General Internal Medicine 08/24/23 Slasher Runner Relationship Specialty Start Date End Date Rajni Cardozo DO [address] [place] [address] PCP - General Internal Medicine 08/24/23 Slasher Runner Relationship Specialty Start Date End Date Rajni Cardozo DO [address] [place] [address] PCP - General Internal Medicine 08/24/23 Slasher Runner Relationship Specialty Start Date End Date No Pcp, [place] [address] PCP - General Family Medicine 04/13/23 Slasher Runner Relationship Specialty Start Date End Date No Pcp, [place] [address] PCP - General Family Medicine 04/13/23 Slasher Runner Relationship Specialty Start Date End Date Rajni Cardozo DO [address] [place] [address] PCP - General Internal Medicine 08/24/23 Slasher Runner Relationship Specialty Start Date End Date Rajni Cardozo DO [address] [place] [address] PCP - General Internal Medicine 08/24/23 Slasher Runner Relationship Specialty Start Date End Date Rajni Cardozo DO [address] [place] [address] PCP - General Internal Medicine 08/24/23 Slasher Runner Relationship Specialty Start Date End Date Rajni Cardozo DO [address] [place] [address] PCP - General Internal Medicine 08/24/23 Slasher Runner Relationship Specialty Start Date End Date No Pcp, [place] [address] PCP - General Family Medicine 04/13/23 Slasher Runner Relationship Specialty Start Date End Date Rajni Cardozo DO [address] [place] [address] PCP - General Internal Medicine 08/24/23 Slasher Runner Relationship Specialty Start Date End Date Rajni Cardozo DO [address] [place] [address] PCP - General Internal Medicine 08/24/23 Slasher Runner Relationship Specialty Start Date End Date No Pcp, [place] [address] PCP - General Family Medicine 04/13/23 Slasher Runner Relationship Specialty Start Date End Date No Pcp, [place] [address] PCP - General Family Medicine 04/13/23 Slasher Runner Relationship Specialty Start Date End Date Rajni Carodzo DO [address] [place] [address] PCP - General Internal Medicine 08/24/23 Slasher Runner Relationship Specialty Start Date End Date No Pcp, [place] [address] PCP - General Family Medicine 04/13/23 Slasher Runner Relationship Specialty Start Date End Date Rajni Cardozo DO [address] [place] [address] PCP - General Internal Medicine 07/01/23 Slasher Runner Relationship Specialty Start Date End Date Rajni Cardozo DO [address] [place] [address] PCP - General Internal Medicine 07/01/23 Slasher Runner Relationship Specialty Start Date End Date Rajni Cardozo DO [address] [place] [address] PCP - General Internal Medicine 08/24/23 Slasher Runner Relationship Specialty Start Date End Date Rajni Cardozo DO [address] [place] [address] PCP - General Internal Medicine 08/24/23 Slasher Runner Relationship Specialty Start Date End Date Rajni Cardozo DO [address] [facility] [place] [address] PCP - General Internal Medicine 07/01/23 Slasher Runner Relationship Specialty Start Date End Date Rajni Cardozo DO [address] [place] [address] PCP - General Internal Medicine 07/01/23 Slasher Runner Relationship Specialty Start Date End Date Rajni Cardozo DO [address] [place] [address] PCP - General Internal Medicine 12/17/23 Slasher Runner Relationship Specialty Start Date End Date Rajni Cardozo DO [address] [facility] [place] [address] PCP - General Internal Medicine 12/17/23 Slasher Runner Relationship Specialty Start Date End Date Rajni Cardozo DO [address] [place] [address] PCP - General Internal Medicine 07/01/23 Slasher Runner Relationship Specialty Start Date End Date Rajni Cardozo DO [address] [facility] [place] [address] PCP - General Internal Medicine 12/17/23 Slasher Runner Relationship Specialty Start Date End Date Rajni Cardozo DO [address] [facility] [place] [address] PCP - General Internal Medicine 12/17/23 Slasher Runner Relationship Specialty Start Date End Date Rajni Cardozo DO [address] [place] [address] PCP - General Internal Medicine 12/17/23 Slasher Runner Relationship Specialty Start Date End Date Rajni Cardozo DO [address] [place] [address] PCP - General Internal Medicine 12/17/23 Slasher Runner Relationship Specialty Start Date End Date Rajni Cardozo DO [address] [place] [address] PCP - General Internal Medicine 12/17/23 Slasher Runner Relationship Specialty Start Date End Date Rajni Cardozo DO [address] [place] [address] PCP - General Internal Medicine 12/17/23 Slasher Runner Relationship Specialty Start Date End Date Rajni Cardozo DO [address] [place] [address] PCP - General Internal Medicine 12/17/23 Slasher Runner Relationship Specialty Start Date End Date Rajni Cardozo DO [address] [facility] [place] [place] [address] PCP - General Internal Medicine 12/17/23 Slasher Runner Relationship Specialty Start Date End Date Rajni Cardozo DO [address] [place] [address] PCP - General Internal Medicine 12/17/23 Slasher Runner Relationship Specialty Start Date End Date Rajni Cardozo MD PCP - General Internal Medicine 08/11/23 Slasher Runner Relationship Specialty Start Date End Date Rajni Cardozo MD PCP - General Internal Medicine 08/11/23 Slasher Runner Relationship Specialty Start Date End Date Rajni Cardooz DO [address] [facility] [place] [address] PCP - General Internal Medicine 12/17/23 Slasher Runner Relationship Specialty Start Date End Date Rajni Cardozo DO [address] [place] [address] PCP - General Internal Medicine 12/17/23 Slasher Runner Relationship Specialty Start Date End Date Rajni Cardozo DO [address] [facility] [place] [address] PCP - General Internal Medicine 12/17/23 Slasher Runner Relationship Specialty Start Date End Date Rajni Cardozo DO [address] [place] [address] PCP - General Internal Medicine 12/17/23 Slasher Runner Relationship Specialty Start Date End Date Rajni Cardozo DO [address] [facility] [place] [address] PCP - General Internal Medicine 12/17/23 Slasher Runner Relationship Specialty Start Date End Date Rajni Cardozo DO [address] [facility] [place] [address] PCP - General Internal Medicine 12/17/23 Slasher Runner Relationship Specialty Start Date End Date Rajni Cardozo MD PCP - General Internal Medicine 08/11/23 Slasher Runner Relationship Specialty Start Date End Date Rajni Cardozo DO [address] [facility] [place] [address] PCP - General Internal Medicine 12/17/23 Slasher Runner Relationship Specialty Start Date End Date Rajni Cardozo DO [address] [place] [address] PCP - General Internal Medicine 12/17/23 Slasher Runner Relationship Specialty Start Date End Date Rajni Cardozo DO [address] [place] [address] PCP - General Internal Medicine 12/17/23 Slasher Runner Relationship Specialty Start Date End Date Rajni Cardozo DO [address] [place] [address] PCP - General Internal Medicine 12/17/23 Goals [...] Diagnoses Shortness of breath Hypoxia COPD exacerbation ([facility]) Acute respiratory failure with hypoxia and hypercapnia ([facility]-HCC) Rajni Gimenez MD [facility], [address] [place] [address] Referral ID Status Reason Start Date Expiration Date Visits Re quested Visits Authorized [id number] 1 1 Specialty Diagnoses / Procedures Referred By Contac t Referred To Contact Diagnoses BONY (obstructive sleep apnea) Hypoxemia associated with sleep Procedures Polysomnography 4 or more parameters [place] [address] [place] [address] Referral ID Status Reason Start Date Expiration Date Visits Re quested Visits Authorized [id number] Closed 08/14/2023 08/13/2024 1 1 Reason Comments transition care Specialty Diagnoses / Procedures Referred By Contac t Referred To Contact Diagnoses BONY treated with BiPAP Procedures Split Night Sleep Study Grace Meadows, DO [address] [place] [address] Referral ID Status Reason Start Date Expiration Date Visits Re quested Visits Authorized [id number] Closed 06/25/2023 06/24/2024 1 1 Reason Comments [...] Care 12/08/2024 Reason Comments TCM/ Respiratory Failure Reason Comments Congestive Heart Failure Follow-up Scheduled Active and Recently Administ ered Medications (unrecognized section and content) Medication Order 07/25/2023 07/26/2023 07/27/2023 ARIPiprazole (ABILIFY) tablet 15 mg (CANCELED) 15 mg, oral, Bedtime, First dose on 07/25/23 at 2200, Look-alike/sound-alike medication - verify indication for use. 2200 (Not Given - Provider: Lissette Mathews RN - Reason: Medication not available) 0 (Given - Provider: Mary Cee RN) ARIPiprazole (ABILIFY) tablet 15 mg 15 mg, [...] 1803 (New Bag - Provider: Vicki Golden RN)1831 (Stop Bag - Provider: Vicki Golden RN) clonazePAM (KlonoPIN) tablet 0.5 mg 0.5 mg, oral, 2 times daily, First dose on 07/26/23 at 1000, Look-alike/sound-alike medication - verify indication for use. 0941 (Given - Provider: Gale Chiang RN)2139 (Given - Provider: Mary Cee, VICTOR M) 08 (Given - Provider: Gale Chiang RN) doxycycline (VIBRAMYCIN) capsule 100 mg 100 mg, [...] RN)2139 (Given - Provider: Mary Cee RN) 08 (Given - Provider: Gale Chiang RN) empagliflozin (JARDIANCE) tablet 10 mg 10 mg, oral, Daily, First dose on 07/26/23 at 0900 0915 (Given - Provider: Gale Chiang RN) 0826 (Given - Provider: Gale Chiang RN) enoxaparin (LOVENOX) syringe 40 mg 40 mg, subcutaneous, Daily, First dose on 07/26/23 at 0600, Look-alike/sound-alike medication - verify indication for use. 0611 (Given - Provider: Lissette Mathews RN) 06 [...] Look-alike/sound-alike medication - verify indication for use. 2152 (Given - Provider: Lissette Mathews RN) 0610 (Given - Provider: Lissette Mathews RN)1327 (Given - Provider: Gale Chiang, VICTOR M)2139 (Given - Provider: Mayr Cee RN) 0604 (Given - Provider: Mary Cee RN)1320 (Given - Provider: Gale Chiang RN) ipratropium-albuteroL (DUONEB) 0.5 mg-3 mg(2.5 mg base)/3 [...] [email or web address]\[email or web address] \EPIC_Reference\Orders\Re spiratory Care Guidelines\CPG Bronchodilator 2020.pdf 1933 (Given - Provider: Joan Malone RCP) ipratropium-albuteroL (DUONEB) 0.5 mg-3 mg(2.5 mg base)/3 mL nebulizer solution 3 mL 3 mL, nebulization, Every 6 hours, First dose on 07/25/23 at 2115, Implement INPATIENT/ED Bronchodilator Clinical Practice Guidelines? Yes, Document: \[email or web address]\epic \EPIC_Reference\Orders\Re spiratory Care Guidelines\CPG Bronchodilator 2020.pdf 2114 (Not Given - Provider: Joan Malone RCP [...] Mathews RN) 08 (Given - Provider: Gale Chiang RN)214 (Given - Provider: Mary Cee, VICTOR M) 0819 (Given - Provider: Gale Chiang, VICTOR M) pantoprazole (PROTONIX) EC tablet 40 mg 40 mg, oral, Every morning before breakfast, First dose on 07/26/23 at 0700, Look-alike/sound-alike medication - verify indication for use. If patient is receiving enteral feeding, consider alternative PPI or continue IV pantoprazole until the delayed-release tablet can be taken orally, Indication: GERD 0610 (Given - Provider: Lissette Mathews RN) 0604 (Given - Provider: Mary Cee, VICTOR M) potassium chloride (KLOR-CON M 20) CR tablet 20 mEq 20 mEq, oral, Daily, First dose on 07/26/23 at 0900, Do not crush or chew. 0813 (Given - Provider: Gale Chiang RN) 0818 (Given - Provider: Gale Chiang, VICTOR M) predniSONE (DELTASONE) tablet 40 mg 40 mg, [...] Look-alike/sound-alike medication - verify indication for use. 2212 (Not Given - Provider: Lissette Mathews RN - Reason: See Provider Order) 0818 (Given - Provider: Gale Chiang RN) sodium chloride 0.9 % flush 3 mL 3 mL, intravenous, Every 12 hours scheduled, First dose on 07/25/23 at 2115 2201 (Given - Provider: Lissette Mathews RN) 0816 (Given - Provider: Gale Chiang RN)2141 (Given - Provider: Mary Cee RN) 0824 [...] Chiang RN) 0825 (Given - Provider: Gale Chiang, VICTOR M) venlafaxine XR (EFFEXOR XR) 24 hr capsule 225 mg 225 mg, oral, Daily with breakfast, First dose on 07/26/23 at 1000, Look-alike/sound-alike medication - verify indication for use. Do not crush or chew. 1014 (Given - Provider: Gale Chiang RN) 0746 (Given - Provider: Gale Chiang, VICTOR M) PRN Medication Order 07/25/2023 07/26/2023 07/27/2023 acetaminophen (TYLENOL) tablet 650 mg 650 mg, oral, Every 4 hours PRN, headaches, moderate pain - pain scale 4-6, Starting on 3/30/24 at 2100 0847 (Given - Provider: Gale Chiang RN)2140 (Given - Provider: Mary Cee, VICTOR M) 0604 (Given - Provider: Mary Cee RN) sodium chloride 0.9 % flush 3 mL 3 mL, intravenous, As needed, line care, before and after each intermittent use, Starting on 07/25/23 at 2058 sodium chloride 0.9 % flush bag 25 mL, intravenous, at 100 mL/hr, Administer over 15 Minutes, As needed, line care, line care after IVPB administration, Starting on 07/25/23 at 2058 sodium chloride 0.9 % infusion 20 mL/hr, intravenous, Continuous PRN, to maintain patency of lines, Starting on 07/25/23 at 2058 FOR RECORDS PERTAINING TO PATIENTS WHO ARE [...] BE BASED ON THE PRIMARY CLINICAL RECORDS. [employer] [facility]. provides no warranty or guarantee of the accuracy or completeness of information in this document.
--- OUTSIDE RECORDS SUMMARY | 2025-02-13 11:14 | XMS_ITS | Encounter Summary ---
Author Organization [employer] [facility] tem Address [id number] [place] [address] Care Team Providers Care Reinforcer Name Role Phone Michael Steiner DO Primary Care Provider [phone] Encounter Details Date Type Department Care Team (Late st Contact Info) Description 11/23/2023 Orders Only [facility] Internal Medicine - Family Medicine [address] [place] [address] Michael Steiner DO [address] [place] [address] Social History Tobacco Use Types Packs/Day Years Used Date Smoking Tobacco: Former Cigarettes 1 40 0 09/1981 - 09/2021 Smokeless Tobacco: Never Comments:5-6 cigerettes a da y Alcohol Use Standard Drinks/Week Comments Not Currently 0 (1 standard drink = 0.6 oz pur e alcohol) last use 15 years ago [facility] Utilities Answer Date Recorded In the past 12 months has [employer] electric, gas, oil, or water company threatened [...] often do you attend chur ch or sikhism services? More than 4 times per year [...] Answer Date Recorded Total Score 0 11/02/2023 [facility] [place] of Occupat ional Health - Occupational Stress [...] Internal Medicine - Family Medicine [address] [place] [address] Michael Steiner DO [address] [place] [address] documented as of this encounter Visit Diagnoses Not on filedocumented in this encounter Additional Health Concerns Infection Onset Date Last Indicated Resolved Time COVID-19 Rule-Out 12/17/2023 12/17/2023 12/17/2023 1:50 PM EDT Assessment Noted Time PHQ-9 Depression Total Score: 0 11/02/19 3:42 PM EDT documented as of this encounter Care Teams Reinforcer Relationship Specialty Start Date End Date Michael Steiner DO [address] [place] [address] PCP - General Internal Medicine 12/17/23 documented as of this encounter
--- OUTSIDE RECORDS SUMMARY | 2025-02-13 11:14 | XMS_ITS | Encounter Summary ---
Author Organization [facility] tem Address [id number] [address] [place] [address] Care Team Providers Care Offset Label Rewinder Name Role Phone Michael Steiner DO Primary Care Provider [phone] Reason for Visit * Reason Comments Med Refill Encounter Details Date Type Department Care Team (Late st Contact Info) Description 11/06/2022 Refill [facility] - [facility] Management [facility] [address] [place] [phone] Yuniel Stringer PA [address] [facility], 2nd [place] [address] Social History Tobacco Use Types Packs/Day Years [...] How often do you attend caodaism or taoism serv ices? Never 01/09/2020 Do you belong [...] Recorded Do you need help finding a [facility] career center and/or a training program? No [...] Internal Medicine - Family Medicine [address] [place] [address] Michael Steiner, [address] [place] [address] documented as of this encounter Visit Diagnoses [...] documented as of this encounter Care Teams Offset Label Rewinder Relationship Specialty Start Date End Date Michael Steiner DO [address] [place] [address] PCP - General Internal Medicine 12/17/23 documented as of this encounter
--- OUTSIDE RECORDS SUMMARY | 2025-02-13 11:14 | XMS_ITS | Encounter Summary ---
Author Organization [employer] tem Address [id number] [address] [place] [address] Care Team Providers Care Hotel Casino Floorperson Name Role Phone Obdulia Michael Janae CABRERA Primary Care Provider [phone] Reason for Visit * Reason Onset Date Comments Med Refill 11/23/2023 Encounter Details Date Type Department Care Team (Late st Contact Info) Description 11/23/2023 Refill [facility] - Family Medicine [address] [place] [phone] Sofya Coe CMA Social History Tobacco Use Types Packs/Day Years Used Date Smoking Tobacco: Former Cigarettes 1 40 0 09/1981 - 09/2021 Smokeless Tobacco: Never Comments:5-6 cigerettes a da y Alcohol Use Standard Drinks/Week Comments Not Currently 0 (1 standard drink = 0.6 oz pur e alcohol) last use 15 years ago [facility] Utilities Answer Date Recorded In [...] How often do you attend [facility] or protestant services? More than 4 times [...] Answer Date Recorded Total Score 0 11/02/2023 [facility] - [...] Internal Medicine - Family Medicine [address] [place] [address] Michael Steiner DO [address] [place] [address] documented as of this encounter Visit Diagnoses Not on filedocumented in this encounter Additional Health Concerns Infection Onset Date Last Indicated Resolved Time COVID-19 Rule-Out 12/17/2023 12/17/2023 12/17/2023 1:50 PM EDT Assessment Noted Time PHQ-9 Depression Total Score: 0 11/02/19 3:42 PM EDT documented as of this encounter Care Teams Hotel Casino Floorperson Relationship Specialty Start Date End Date Michael Steiner DO [address] [place] [address] PCP - General Internal Medicine 12/17/23 documented as of this encounter
--- OUTSIDE RECORDS SUMMARY | 2025-02-13 11:14 | XMS_ITS | Encounter Summary ---
Author Organization [facility] [employer] [facility] tem Address [id number] [address] [place] [address] Care Team Providers Care Trauma Nurse Name Role Phone Michael Steiner DO Primary Care Provider [phone] Encounter Details Date Type Department Care Team (Late st Contact Info) Description 02/13/2023 Telephone [facility] [address] [place] [phone] Brittnee Sharpe, RN Social History Tobacco Use [...] How often do you attend adventist or yazidi serv ices? Never 01/09/2020 Do [...] Recorded Do you need help finding a [employer] career center and/or a training program? No [...] Medicine - Family Medicine [address] [place] [place] [address] Michael Steiner, [address] [place] [address] documented as of this encounter Visit Diagnoses [...] documented as of this encounter Care Teams Trauma Nurse Relationship Specialty Start Date End Date Michael Steiner DO [address] [place] [address] PCP - General Internal Medicine 12/17/23 documented as of this encounter
--- OUTSIDE RECORDS SUMMARY | 2025-02-13 11:14 | XMS_ITS | Encounter Summary ---
Author Organization [facility] [employer] [facility] tem Address [id number] [address] [place] [address] Care Team Providers Care Senior Commissary Agent Name Role Phone Michael Steiner DO Primary Care Provider [phone] Reason for Visit * Reason Comments Med Refill Encounter Details Date Type Department Care Team (Late st Contact Info) Description 03/05/2023 Refill [facility] - Heart Failure Clinic [address] [place] [phone] Tristen Maldonado MD [address] [place] [address] Shortness of breath; Chronic heart failure with preserved ejection fraction ([facility]) Social History Tobacco Use Types Packs/Day Years [...] week 01/09/2020 How often do you attend anglican or hoahaoism serv ices? Never 01/09/2020 Do you belong [...] Recorded Do you need help finding a [employer] career center and/or a training program? No [...] [facility] - Family Medicine [address] [place] [address] Michael Steiner, [address] [facility] [place] [address] documented as of this encounter Visit Diagnoses [...] as of this encounter Care Teams Senior Commissary Agent Relationship Specialty Start Date End Date Michael Steiner DO [address] [place] [address] PCP - General Internal Medicine 12/17/23 documented as of this encounter
--- OUTSIDE RECORDS SUMMARY | 2025-02-13 11:14 | XMS_ITS | Encounter Summary ---
Author Organization [employer] tem Address [id number] [address] [place] [address] Care Team Providers Care Irrigation System Operator Name Role Phone Michael Steiner DO Primary Care Provider [phone] Encounter Details Date Type Department Care Team (Late st Contact Info) Description 10/01/[address] [facility] Medicine [address] [place] [phone] Juan Diego Esquivel CMA Social History Tobacco Use Types Packs/Day Years Used Date Smoking Tobacco: Former Cigarettes 1 40 0 09/1981 - 09/2021 Smokeless Tobacco: Never Comments:5-6 cigerettes a da y Alcohol Use Standard Drinks/Week Comments Not Currently 0 (1 standard drink = 0.6 oz pur e alcohol) last use 15 years ago [facility] Utilities Answer Date Recorded In the past 12 months has [employer], gas, oil, or water [employer] threatened to shut off services in your [...] How often do you attend chur or gnosticism services? More than 4 times per year 07/25/2023 Do you belong to any clubs o r organizations such as oriental orthodox groups, unions, fraternal or athletic groups, [...] Date Recorded Total Score 0 09/30/2023 [facility] - Occupational [...] but I did refill her prescription for [place] 5-325 b.i.d. times30 days documented in this encounter Plan of Treatment Upcoming Encounters Date Type Department Care Team (Late st Contact Info) Description 03/15/2025 1:30 PM EST Office Visit [facility] - Family Medicine [address] [place] [address] Michael Steiner DO [address] [place] [address] documented as of this encounter Visit Diagnoses Not on filedocumented in this encounter Additional Health Concerns Infection Onset Date Last Indicated Resolved Time COVID-19 Rule-Out 12/17/2023 12/17/2023 12/17/2023 1:50 PM EDT Assessment Noted Time PHQ-9 Depression Total Score: 0 09/30/19 1:38 PM EDT documented as of this encounter Care Teams Irrigation System Operator Relationship Specialty Start Date End Date Michael Steiner DO [address] [place] [address] PCP - General Internal Medicine 12/17/23 documented as of this encounter
--- OUTSIDE RECORDS SUMMARY | 2025-02-13 11:14 | XMS_ITS | Encounter Summary ---
Author Organization [facility] tem Address [id number] [address] [place] [address] Care Team Providers Care Industrial Technology Education Teacher Name Role Phone Michael Steiner DO Primary Care Provider [phone] Encounter Details Date Type Department Care Team (Late st Contact Info) Description 02/13/2023 Telephone [facility] - Wound Care Outpatient [address] [place] [phone] Rosangela Tomlinson Social History Tobacco Use Types [...] week 01/09/2020 How often do you attend mosque or pentecostal serv ices? Never 01/09/2020 Do you belong [...] Recorded Do you need help finding a [employer] center and/or a training program? No 01/09/2020 [...] Internal Medicine - Family Medicine [address] [place] [address] Michael Steiner, DO [address] [place] [address] documented as of this encounter Visit Diagnoses [...] as of this encounter Care Teams Industrial Technology Education Teacher Relationship Specialty Start Date End Date Michael Steiner DO [address] [place] [address] PCP - General Internal Medicine 12/17/23 documented as of this encounter
--- OUTSIDE RECORDS SUMMARY | 2025-02-13 11:14 | XMS_ITS | Encounter Summary ---
Author Organization [facility] tem Address [id number] [address] [place] [address] Care Team Providers Care Junior Java Developer Name Role Phone Michael Steiner DO Primary Care Provider [phone] Encounter Details Date Type Department Care Team (Late st Contact Info) Description 12/02/2023 Orders Only [facility] - Family Medicine [address] [place] [address] Michael Steiner DO [address] [place] [address] Social History Tobacco Use Types Packs/Day Years Used Date Smoking Tobacco: Former Cigarettes 1 40 0 09/1981 - 09/2021 Smokeless Tobacco: Never Comments:5-6 cigerettes a da y Alcohol Use Standard Drinks/Week Comments Not Currently 0 (1 standard drink = 0.6 oz pur e alcohol) last use 15 years ago [facility] Utilities Answer Date Recorded In the past 12 months has [employer], gas, oil, or water company threatened [...] Answer Date Recorded Total Score 0 11/02/2023 [facility] [place] of Occupat ional Health - Occupational Stress [...] Medicine - Family Medicine [address] [place] [address] Michael Steiner DO [address] [place] [address] documented as of this encounter Visit Diagnoses Not on filedocumented in this encounter Additional Health Concerns Infection Onset Date Last Indicated Resolved Time COVID-19 Rule-Out 12/17/2023 12/17/2023 12/17/2023 1:50 PM EDT Assessment Noted Time PHQ-9 Depression Total Score: 0 11/02/19 3:42 PM EDT documented as of this encounter Care Teams Junior Java Developer Relationship Specialty Start Date End Date Michael Steiner DO [address] [place] [address] PCP - General Internal Medicine 12/17/23 documented as of this encounter
--- OUTSIDE RECORDS SUMMARY | 2025-02-13 11:15 | XMS_ITS | Clinical Summary ---
Author Organization [facility] Healthcare Address [address] [place] [address] Care Team Providers Care Patient Safety Sitter Name Role Phone Michael Steiner MD Primary Care Provider [phone] Allergies Active Allergy Reactions Criticality Noted Date [...] angioplasty 2013 Overview (01/22/2024): Dr. Vickers at [place] in [place] did PCI with bare metal stent placement [...] Encounters Date Type Department Care Team Description 02/08/2025 Telephone [facility] [address] [place] [address] Sydnie Guerrero DO 01/25/2025 Telephone [facility] Medicine [address] [place] [address] Sydnie Guerrero DO 01/18/2025 Telephone [facility] [address] [place] [address] Patricia Mcclure MA 01/03/2025 Telephone [facility] [address] [place] [address] Sydnie Guerrero DO from Last 3 [...] 03/08/2025 3:15 PM EST Office Visit [facility] [address] [place] [address] Sydnie Guerrero DO [address] [place] [address] Insurance [place]ICAID [place] [employer] MEDICARE ADVANTAGE Care Teams Patient Safety Sitter Relationship Specialty Start Date End Date Michael Steiner MD PCP - General Internal Medicine 08/11/23
--- OUTSIDE RECORDS SUMMARY | 2025-02-13 11:15 | XMS_ITS | Encounter Summary ---
Author Organization [facility] Address [address] [place] [address] Care Team Providers Care Computer Graphics Illustrator Name Role Phone Michael Steiner MD Primary Care Provider [phone] Encounter Details Date Type Department Care Team (Late st Contact Info) Description 03/18/2024 Abstract [facility] [address] [place] [address] Patricia Mcclure MA Social History Tobacco Use [...] EST Office Visit [facility] [address] [place] [address] Sydnie Guerrero DO [address] [place] [address] documented as of this encounter Visit Diagnoses Not on filedocumented in this encounter Care Teams Computer Graphics Illustrator Relationship Specialty Start Date End Date Michael Steiner MD PCP - General Internal Medicine 08/11/23 documented as of this encounter
--- OUTSIDE RECORDS SUMMARY | 2025-02-13 11:15 | XMS_ITS | Encounter Summary ---
Author Organization [employer] [facility] tem Address [id number] [address] [place] [address] Care Team Providers Care Milk House Worker Name Role Phone Michael Steiner DO Primary Care Provider [phone] Encounter Details Date Type Department Care Team (Late st Contact Info) Description 10/16/2023 Orders Only [facility] - Family Medicine [address] [place] [address] Michael Steiner DO [address] [place] [address] B12 deficiency (Primary Dx) Social History Tobacco Use Types Packs/Day Years Used Date Smoking Tobacco: Former Cigarettes 1 40 0 09/1981 - 09/2021 Smokeless Tobacco: Never Comments:5-6 cigerettes a da y Alcohol Use Standard Drinks/Week Comments Not Currently 0 (1 standard drink = 0.6 oz pur e alcohol) last use 15 years ago [facility] Utilities Answer Date Recorded In the past 12 months has [employer], gas, oil, or water company threatened [...] any clubs o r organizations such as hindu groups, unions, fraternal or athletic groups, or [...] Recorded Total Score 0 09/30/2023 [facility] of Occupat ional Health [...] Internal Medicine - Family Medicine [address] [place] [address] Michael Steiner DO [address] [place] [address] documented as of this encounter Visit Diagnoses Diagnosis B12 deficiency- Primary documented in this encounter Additional Health Concerns Infection Onset Date Last Indicated Resolved Time COVID-19 Rule-Out 12/17/2023 12/17/2023 12/17/2023 1:50 PM EDT Assessment Noted Time PHQ-9 Depression Total Score: 0 09/30/19 1:38 PM EDT documented as of this encounter Care Teams Milk House Worker Relationship Specialty Start Date End Date Michael Steiner DO [address] [place] [address] PCP - General Internal Medicine 12/17/23 documented as of this encounter
--- OUTSIDE RECORDS SUMMARY | 2025-02-13 11:15 | XMS_ITS | Encounter Summary ---
Author Organization [facility] tem Address [id number] [address] [place] [address] Care Team Providers Care Dye Padder Operator Name Role Phone Michael Steiner DO Primary Care Provider [phone] Encounter Details Date Type Department Care Team (Late st Contact Info) Description 11/04/2021 Orders Only [facility] - Radiation Oncology [address] [place] [phone] Renae Gallegos MA NSTEMI (non-ST elevated myocardial infarction) ([facility]) (Primary Dx); ASCVD (arteriosclerotic cardiovascular disease) Social [...] How often do you attend scientology or confucianist serv ices? Never 01/09/2020 Do [...] Recorded Do you need help finding a [employer] career center and/or a training program? No [...] Internal Medicine - Family Medicine [address] [place] [address] Michael Steiner, [address] [place] [address] documented as of this encounter Results * B-type natriuretic peptide (11/04/2021 12:38 PM EDT) BNP 89 <100.0 pg/mL 11/04/2021 3:51 PM EDT [facility] PLASMA 11/04/2021 12:3 8 PM EDT 11/04/2021 12:39 PM EDT us Grupo Nguyen MD LAB BLOOD ORDERABLES Final Res ult SUNLUIS MANUEL [facility] [address] [place] [address] * Comprehensive metabolic panel (11/04/2021 12:38 PM EDT) Pathologist [facility] Sodium 141 134 - 146 mmol/L 11/04/2021 2:55 PM EDT [facility] Potassium, Bld 4.1 3.5 - 5.0 mmol/L 11/04/2021 2:55 PM EDT [facility] Chloride 104 98 - 109 mmol/L 11/04/2021 2:55 PM EDT [facility] CO2 28 22 - 32 mmol/L 11/04/2021 2:55 PM EDT [facility] Anion gap 9 5 - 15 mmol/L 11/04/2021 2:55 PM EDT [facility] BUN 12 5 - 23 mg/dL 11/04/2021 2:55 PM EDT [facility] Creatinine 0.84 0.40 - 1.00 mg/dL 11/04/2021 2:55 PM EDT [facility] Comment:METHOD TRACEABLE TO IDMS STANDARD Glucose 94 65 - 99 mg/dL 11/04/2021 2:55 PM EDT [facility] Calcium 9.1 8.5 - 10.5 mg/dL 11/04/2021 2:55 PM EDT [facility] Total Protein 7.0 6.0 - 8.0 g/dL 11/04/2021 2:55 PM EDT [facility] Albumin 4.0 3.2 - 5.3 g/dL 11/04/2021 2:55 PM EDT [facility] Alkaline Phosphatase 56 39 - 130 U/L 11/04/2021 2:55 PM EDT [facility] AST 16 0 - 41 U/L 11/04/2021 2:55 PM EDT [facility] ALT 14 0 - 31 U/L 11/04/2021 2:55 PM EDT [facility] Total bilirubin 0.3 0.3 - 1.2 mg/dL 11/04/2021 2:55 PM EDT [facility] GFR MDRD Non Af Amer >60 >59 ml/min/1.7 3sq.m 11/04/2021 2:55 PM EDT [facility] GFR MDRD Af Amer >60 >59 ml/min/1.7 3sq.m 11/04/2021 2:55 PM EDT [facility] PLASMA 11/04/2021 12:3 8 PM EDT 11/04/2021 12:39 PM EDT us Grupo Nguyen MD LAB BLOOD ORDERABLES Final Res ult SKYLER [facility] [address] [place] [address] documented in this encounter Visit Diagnoses Diagnosis NSTEMI (non-ST elevated myocardial infarction) ([facility])- Primary Acute myocardial infarction, subendocardial infarction, episode [...] documented as of this encounter Care Teams Dye Padder Operator Relationship Specialty Start Date End Date Michael Stenier DO [address] [place] [id number] PCP - General Internal Medicine 12/17/23 documented as of this encounter
--- OUTSIDE RECORDS SUMMARY | 2025-02-13 11:15 | XMS_ITS | Encounter Summary ---
Author Organization [facility] Address [address] [place] [address] Care Team Providers Care Psychologist Educational Name Role Phone Michael Steiner MD Primary Care Provider [phone] Encounter Details Date Type Department Care Team (Late st Contact Info) Description 02/08/2025 Telephone [facility] [address] [place] [address] Sydnie Guerrero DO [address] [place] [address] Social History Tobacco Use Types Packs/Day Years Used Date Smoking Tobacco: Former Cigarettes Q uit: 2021 Smokeless Tobacco: Former Alcohol Use Standard Drinks/Week Comments Not Currently 0 (1 standard drink = 0.6 oz pur e alcohol) Comments Unknown Sex and Gender Information Value Date Recorded Sex Assigned at Not on file Legal Sex Female 11:01 PM EDT Gender Identity Not on file Sexual Orientation Not on file documented as of this encounter Miscellaneous Notes * Telephone Encounter - Magali Kelly - 02/08/2025 11:46 AM EDT Pt informed * Telephone Encounter - Sydnie Guerrero DO - 02/08/2025 11:29 AM EDT She needs to contact [employer] if she is having trouble with her mask. There is nothing I can do with it in the office. If she needs a new one then I can write a script but she would need [employer] to helpher find one that fits/works for her. If she wants to move appt, then that's fine. But she needs tocontact [employer] about a mask in the meantime. * Telephone Encounter - Magali Kelly - 02/08/2025 11:19 AM EDT Hi, this is to be cool calling for Dr Cruz. I really need to move my appointment up as soon as possible. My phone number [phone]. My date is 124 3. Thank you. Patient would like to move appointment up attempted to return call but was unable to reach patient.Correction, patient returned call,, Pt is willing to travel to [place], She states that BiPap is not working correctly . [employer] is the company she uses for her bi pap, and was told nothing wrong, that pt must be using the mask wrong. She would like to move her appt up. documented in this encounter Plan of Treatment Upcoming Encounters Date Type Department Care Team (Late st Contact Info) Description 03/08/2025 3:15 PM EST Office Visit [facility] [address] [place] [address] Sydnie Guerrero DO [address] [place] [address] documented as of this encounter Visit Diagnoses Not on filedocumented in this encounter Care Teams Psychologist Educational Relationship Specialty Start Date End Date Michael Steiner MD PCP - General Internal Medicine 08/11/23 documented as of this encounter
--- OUTSIDE RECORDS SUMMARY | 2025-02-13 11:15 | XMS_ITS | Encounter Summary ---
Author Organization [facility] [employer] [facility] [employer] Address [id number] [address] [place] [address] Care Team Providers Care Television Tube Inspector Name Role Phone Michael Steiner DO Primary Care Provider [phone] Encounter Details Date Type Department Care Team (Late st Contact Info) Description 10/07/2023 Telephone [facility] [address] [place] [phone] Lamar Carlson Social History Tobacco Use Types [...] Recorded In the past 12 months has [employer], gas, oil, or water [employer] threatened to shut off services in your [...] How often do you attend chur or confucianist services? More than 4 times per year [...] Answer Date Recorded Total Score 0 09/30/2023 [facility] of Occupat ional [...] patient to schedule 6 mo ov with [facility] in January. Patients states they will call back to schedule. documented in this encounter Plan of Treatment Upcoming Encounters Date Type Department Care Team (Late st Contact Info) Description 03/15/2025 1:30 PM EST Office Visit [facility] Internal Medicine - Family Medicine [address] [place] [address] Michael Steiner DO [address] [place] [address] documented as of this encounter Visit Diagnoses Not on filedocumented in this encounter Additional Health Concerns Infection Onset Date Last Indicated Resolved Time COVID-19 Rule-Out 12/17/2023 12/17/2023 12/17/2023 1:50 PM EDT Assessment Noted Time PHQ-9 Depression Total Score: 0 09/30/19 24 1:38 PM EDT documented as of this encounter Care Teams Television Tube Inspector Relationship Specialty Start Date End Date Michael Steiner DO [address] [place] [address] PCP - General Internal Medicine 12/17/23 documented as of this encounter
--- OUTSIDE RECORDS SUMMARY | 2025-02-13 11:15 | XMS_ITS | Encounter Summary ---
Author Organization [employer] Address [id number] [address] [place] [address] Care Team Providers Care Web Content Director Name Role Phone Michael Steiner DO Primary Care Provider [phone] Encounter Details Date Type Department Care Team (Late st Contact Info) Description 09/28/2023 [facility]phone [facility] [address] [place] [phone] PrestonMonica lo, PLYWOOD LAYUP LINE CORE LAYER Social History Tobacco Use Types Packs/Day Years Used Date Smoking Tobacco: Former Cigarettes 1 40 0 09/1981 - 09/2021 Smokeless Tobacco: Never Comments:5-6 cigerettes a da y Alcohol Use Standard Drinks/Week Comments Not Currently 0 (1 standard drink = 0.6 oz pur e alcohol) last use 15 years ago [facility] Utilities Answer Date Recorded In the past 12 months has [employer], gas, oil, or water [employer] threatened to shut off services in your [...] Answer Date Recorded Total Score 0 09/30/2023 [facility] of Occupat ional Health - Occupational [...] Medicine - Family Medicine [address] [place] [address] Michael Steiner DO [address] [place] [address] documented as of this encounter Visit Diagnoses Not on filedocumented in this encounter Additional Health Concerns Infection Onset Date Last Indicated Resolved Time COVID-19 Rule-Out 12/17/2023 12/17/2023 12/17/2023 1:50 PM EDT Assessment Noted Time PHQ-9 Depression Total Score: 0 09/24/19 11:09 AM EDT documented as of this encounter Care Teams Web Content Director Relationship Specialty Start Date End Date Michael Steiner DO [address] [place] [address] PCP - General Internal Medicine 12/17/23 documented as of this encounter
--- OUTSIDE RECORDS SUMMARY | 2025-02-13 11:15 | XMS_ITS | Encounter Summary ---
Author Organization [facility] Address [id number] [address] [place] [address] Care Team Providers Care Survey Chief Name Role Phone Joansunshine Michael Janae CABRERA Primary Care Provider Reason for Visit * Reason Comments Med Refill Encounter Details Date Type Department Care Team (Late st Contact Info) Description 01/05/2023 Refill [facility] Cardiology [address] [place] [phone] Saurabh Morrison, EXPLOSIVE OPERATOR SUPERVISOR-TELESALES MANAGER [address] [place] [address] Med Refill Social History Tobacco Use Types [...] How often do you attend mu-ism or church serv ices? Never 01/09/2020 Do [...] Internal Medicine - Family Medicine [address] [place] [address] Michael Steiner, [address] [place] [address] documented as of this encounter Visit Diagnoses Diagnosis Atherosclerosis of [place] coronary artery of [place] heart without angina pectoris- Primary Hx of [...] documented as of this encounter Care Teams Survey Chief Relationship Specialty Start Date End Date Michael Steiner DO [address] [place] [address] PCP - General Internal Medicine 12/17/23 documented as of this encounter
--- OUTSIDE RECORDS SUMMARY | 2025-02-13 11:15 | XMS_ITS | Encounter Summary ---
Author Organization [employer] tem Address [id number] [address] [place] [address] Care Team Providers Care Account Representative Name Role Phone Michael Steiner DO Primary Care Provider [phone] Encounter Details Date Type Department Care Team (Late st Contact Info) Description 07/08/2024 Orders Only [facility] Internal Medicine - Family Medicine [address] [place] [address] Michael Steiner DO [address] [place] [address] Atherosclerotic heart disease of [place] coronary artery with other forms of angina pectoris ([facility]) (Primary Dx) Social History Tobacco Use Types Packs/Day Years Used Date Smoking Tobacco: Former Cigarettes 1 40 0 09/1981 - 09/2021 Smokeless Tobacco: Never Comments:5-6 cigerettes a da y Alcohol Use Standard Drinks/Week Comments Not Currently 0 (1 standard drink = 0.6 oz pur e alcohol) last use 15 years ago [facility] Utilities Answer Date Recorded In [...] Answer Date Recorded Total Score 0 07/07/2024 [facility] of Occupat ional Health - Occupational Stress [...] Internal Medicine - Family Medicine [address] [place] [address] Michael Steiner DO [address] [place] [address] documented as of this encounter Visit Diagnoses Diagnosis Atherosclerotic heart disease of [place] coronary artery with other forms of angina pectoris- Primary documented in this encounter Additional Health Concerns Assessment Noted Time PHQ-9 Depression Total Score: 0 07/08/19 25 1:08 PM EDT documented as of this encounter Care Teams Account Representative Relationship Specialty Start Date End Date Michael Steiner DO [address] [place] [address] PCP - General Internal Medicine 12/17/23 documented as of this encounter
--- OUTSIDE RECORDS SUMMARY | 2025-02-13 11:15 | XMS_ITS | Encounter Summary ---
Author Organization [facility] Address [address] [place] [address] Care Team Providers Care Motor Vehicle Clerk Name Role Phone Michael Steiner MD Primary Care Provider [phone] Encounter Details Date Type Department Care Team (Late st Contact Info) Description 03/17/2024 Abstract [facility] [address] [place] [phone] Patricia Mcclure MA Social History Tobacco Use [...] EST Office Visit [facility] [address] [place] [address] Sydnie Guerrero DO [address] [place] [address] documented as of this encounter Visit Diagnoses Not on filedocumented in this encounter Care Teams Motor Vehicle Clerk Relationship Specialty Start Date End Date Michael Steiner MD PCP - General Internal Medicine 08/11/23 documented as of this encounter
--- OUTSIDE RECORDS SUMMARY | 2025-02-13 11:15 | XMS_ITS | Encounter Summary ---
Author Organization [employer] tem Address [id number] [address] [place] [address] Care Team Providers Care Track Laminating Machine Tender Name Role Phone Michael Steiner DO Primary Care Provider [phone] Encounter Details Date Type Department Care Team (Late st Contact Info) Description 11/10/2024 [facility]phone [facility] [address] [place] [address] Megan Talley, ELIAN Social History Tobacco Use Types Packs/Day Years Used Date Smoking Tobacco: Former Cigarettes 1 40 0 09/1981 - 09/2021 Smokeless Tobacco: Never Comments:5-6 cigerettes a da y Alcohol Use Standard Drinks/Week Comments Not Currently 0 (1 standard drink = 0.6 oz pur e alcohol) last use 15 years ago [facility] Utilities Answer Date Recorded In the past 12 months has [employer], gas, oil, or water [employer] threatened to shut off services in your [...] How often do you attend chur or faith services? More than 4 times [...] Answer Date Recorded Total Score 0 11/07/2024 [facility] of Occupat ional [...] Internal Medicine - Family Medicine [address] [place] [address] Michael Steiner DO [address] [place] [address] documented as of this encounter Visit Diagnoses Not on filedocumented in this encounter Additional Health Concerns Assessment Noted Time PHQ-9 Depression Total Score: 0 11/08/19 25 2:16 PM EDT documented as of this encounter Care Teams Track Laminating Machine Tender Relationship Specialty Start Date End Date Michael Steiner DO [address] [place] [address] PCP - General Internal Medicine 12/17/23 documented as of this encounter
--- OUTSIDE RECORDS SUMMARY | 2025-02-13 11:16 | XMS_ITS | Encounter Summary ---
Author [facility] Address [id number] [address] [place] [address] Care Team Providers Care Parcel Contractor Name Role Phone Michael Steiner DO Primary Care Provider [phone] Reason for Visit * Reason Onset Date Comments Transition Of Care 09/01/2023 Encounter Details Date Type Department Care Team (Late st Contact Info) Description 09/01/2023 [facility]phone [facility] [address] [place] [phone] Poornima Bonner, VICTOR M Transition Of Care Social History Tobacco Use Types Packs/Day Years Used Date Smoking Tobacco: Former Cigarettes 1 40 0 09/1981 - 09/2021 Smokeless Tobacco: Former Chew Comments:5-6 cigerettes a da y Alcohol Use Standard Drinks/Week Comments Not Currently 0 (1 standard drink = 0.6 oz pur e alcohol) last use 15 years ago [facility] Utilities Answer Date Recorded In the past 12 months has th [employer], gas, oil, or water company threatened [...] 07/25/2023 How often do you attend [facility] or islam services? More than 4 times [...] Date Recorded Total Score 0 08/10/2023 [facility] of Occupat ional Health - Occupational Stress [...] acute cor pulmonale, unspecified pulmonary embolism type ([facility]) Active Problems: Closed wedge compression fracture of T6 vertebra with routine healing BONY treated with BiPAP Chronic heart failure with preserved ejection fraction ([facility]) Bipolar 2 disorder, major depressive episode ([facility]) Discharge Specialty: Orthopedic and Vascular Name of Discharging Facility: [facility] Date of Facility Discharge: 08/29/23 Date of Interactive Contact and Name of Pe Manager: Spoke with friend Norma on 09/01/23 Medication [...] Not using the lidoderm patches, is taking Iuka but does not take the pain away. [...] management- encouraged use of lidodem patch with Iuka. Ice. -Follow up with providers as scheduled [...] Internal Medicine - Family Medicine [address] [place] [address] Michael Steiner DO [address] [place] [address] documented as of this encounter Visit Diagnoses Not on filedocumented in this encounter Additional Health Concerns Infection Onset Date Last Indicated Resolved Time COVID-19 Rule-Out 12/17/2023 12/17/2023 12/17/2023 1:50 PM EDT Assessment Noted Time PHQ-9 Depression Total Score: 0 08/10/19 1:05 PM EDT documented as of this encounter Care Teams Parcel Contractor Relationship Specialty Start Date End Date Michael Steiner DO [address] [place] [address] PCP - General Internal Medicine 12/17/23 documented as of this encounter
--- OUTSIDE RECORDS SUMMARY | 2025-02-13 11:16 | XMS_ITS | Encounter Summary ---
Author Organization [facility] Address [address] [place] [address] Care Team Providers Care Continuous Crusher Operator Name Role Phone Michael Steiner MD Primary Care Provider Encounter Details Date Type Department Care Team (Late st Contact Info) Description 03/17/2024 Abstract [facility] [address] [place] [address] Patricia Mcclure MA Social History Tobacco Use [...] EST Office Visit [facility] [address] [place] [address] Sydnie Guerrero DO [address] [place] [address] documented as of this encounter Visit Diagnoses Not on filedocumented in this encounter Care Teams Continuous Crusher Operator Relationship Specialty Start Date End Date Michael Steiner MD PCP - General Internal Medicine 08/11/23 documented as of this encounter
--- OUTSIDE RECORDS SUMMARY | 2025-02-13 11:16 | XMS_ITS | Encounter Summary ---
Author Organization [employer] Address [id number] [address] [place] [address] Care Team Providers Care Contract Engineer Name Role Phone Michael Steiner DO Primary Care Provider [phone] Encounter Details Date Type Department Care Team (Late st Contact Info) Description 08/31/2023 Telephone [facility] [address] [place] [address] PrestonMonica lo, APPLICATION SUPPORT ADMINISTRATOR Social History Tobacco Use Types Packs/Day Years [...] Recorded In the past 12 months has [employer], gas, oil, or water [employer] threatened to shut off services in your [...] How often do you attend chur or muslim services? More than 4 times per year [...] Answer Date Recorded Total Score 0 08/10/2023 [facility] of Occupat ional Health - [...] , she does have an appt the 15 do you want to see her before the 15th or just wait ? * Telephone Encounter [...] Internal Medicine - Family Medicine [address] [place] [address] Michael Steiner DO [address] [place] [address] documented as of this encounter Visit Diagnoses Not on filedocumented in this encounter Additional Health Concerns Infection Onset Date Last Indicated Resolved Time COVID-19 Rule-Out 12/17/2023 12/17/2023 12/17/2023 1:50 PM EDT Assessment Noted Time PHQ-9 Depression Total Score: 0 08/10/19 1:05 PM EDT documented as of this encounter Care Teams Contract Engineer Relationship Specialty Start Date End Date Michael Steiner DO [address] [place] [address] PCP - General Internal Medicine 12/17/23 documented as of this encounter
--- OUTSIDE RECORDS SUMMARY | 2025-02-13 11:16 | XMS_ITS | Encounter Summary ---
Author Organization [facility] [employer] [facility] Address [id number] [address] [place] [address] Care Team Providers Care Turkey Cleaner Name Role Phone Michael Steiner DO Primary Care Provider Reason for Referral * Vascular (Routine) - Closed Specialty Diagnoses / Procedures Referred By Rick rahman Referred To Contact Diagnoses Acute pulmonary embolism without acute cor pulmonale, unspecified pulmonary embolism type ([facility]) Procedures Vas venous duplex lwr bilateral Michael Steiner DO [address] [place] [address] Phone: tel: fax: [facility] [address] [place] [address] Phone: tel: Referral ID Status Reason Start Date Expiration Date Visits Re quested Visits Authorized [id number] Closed 08/31/2023 08/30/2024 1 1 * Diagnostic Imaging (Routine) - Closed Specialty Diagnoses / Procedures Referred By Rick rahman Referred To Contact Radiology Diagnoses Closed wedge compression fracture of T6 vertebra with routine healing Procedures MR thoracic spine without contrast Michael Steiner DO [address] [place] [address] Phone: tel: fax:[phone] Referral ID Status Reason Start Date Expiration Date Visits Re quested Visits Authorized [id number] Closed 08/31/2023 08/30/2024 1 1 Encounter Details Date Type Department Care Team (Late st Contact Info) Description 08/31/2023 Orders Only [facility] Internal Medicine - Family Medicine [address] [place] [address] Michael Steiner DO [address] [facility] [place] [address] Closed wedge compression fracture of T6 vertebra with routine healing (Primary Dx); Acute pulmonary embolism without acute cor pulmonale, unspecified pulmonary embolism type ([facility]) Social History Tobacco Use Types Packs/Day Years Used Date Smoking Tobacco: Former Cigarettes 1 40 0 09/1981 - 09/2021 Smokeless Tobacco: Former Chew Comments:5-6 cigerettes a da y Alcohol Use Standard Drinks/Week Comments Not Currently 0 (1 standard drink = 0.6 oz pur e alcohol) last use 15 years ago [facility] Utilities Answer Date Recorded In the past 12 months has [employer], gas, oil, or water [employer] threatened to shut off services in your [...] How often do you attend chur or mandaen services? More than 4 times [...] Answer Date Recorded Total Score 0 08/10/2023 [facility] of Occupat ional Health [...] Internal Medicine - Family Medicine [address] [place] [address] Michael Steiner DO [address] [place] [address] documented as of this encounter Results * [...] on 09/11/2023 1:40 PM Michael Steiner DO [facility] Final Result documented in this [...] documented as of this encounter Care Teams Turkey Cleaner Relationship Specialty Start Date End Date Michael Steiner DO [address] [place] [id number] PCP - General Internal Medicine 12/17/23 documented as of this encounter
--- OUTSIDE RECORDS SUMMARY | 2025-02-13 11:16 | XMS_ITS | Encounter Summary ---
Author Organization [employer] Address [id number] [address] [place] [address] Care Team Providers Care Computer Typesetter Name Role Phone Michael Steiner DO Primary Care Provider [phone] Encounter Details Date Type Department Care Team (Late st Contact Info) Description 10/31/2021 [facility]phone [facility] [address] [address] Juli Mixon RN Social History [...] How often do you attend uatsdin or islam serv ices? Never 01/09/2020 Do [...] Recorded Do you need help finding a [employer] [address] center and/or a training program? No 01/09/2020 [...] Internal Medicine - Family Medicine [address] [place] [address] Michael Steiner DO [address] [place] [address] documented as of this encounter Visit Diagnoses [...] documented as of this encounter Care Teams Computer Typesetter Relationship Specialty Start Date End Date Michael Steiner DO [address] [place] [address] PCP - General Internal Medicine 12/17/23 documented as of this encounter
--- OUTSIDE RECORDS SUMMARY | 2025-02-13 11:16 | XMS_ITS | Encounter Summary ---
Author Organization [facility] Address [id number] [address] [place] [address] Care Team Providers Care Quality Assurance Tester Name Role Phone Michael Steiner DO Primary Care Provider [phone] Encounter Details Date Type Department Care Team (Late st Contact Info) Description 09/04/2024 Orders Only [facility] Internal Medicine - Family Medicine [address] [place] [address] Michael Steiner DO [address] [place] [address] Social History Tobacco Use Types Packs/Day Years Used Date Smoking Tobacco: Former Cigarettes 1 40 0 09/1981 - 09/2021 Smokeless Tobacco: Never Comments:5-6 cigerettes a da y Alcohol Use Standard Drinks/Week Comments Not Currently 0 (1 standard drink = 0.6 oz pur e alcohol) last use 15 years ago [facility] Utilities Answer Date Recorded In the past 12 months has [employer], gas, oil, or water company threatened [...] often do you attend chur ch or anabaptism services? More than 4 times [...] Answer Date Recorded Total Score 0 07/07/2024 [facility] of Occupat ional Health - [...] Internal Medicine - Family Medicine [address] [place] [address] Michael Steiner DO [address] [place] [address] documented as of this encounter Visit Diagnoses Not on filedocumented in this encounter Additional Health Concerns Assessment Noted Time PHQ-9 Depression Total Score: 0 07/08/19 25 1:08 PM EDT documented as of this encounter Care Teams Quality Assurance Tester Relationship Specialty Start Date End Date Michael Steiner DO [address] [place] [address] PCP - General Internal Medicine 12/17/23 documented as of this encounter
--- OUTSIDE RECORDS SUMMARY | 2025-02-13 11:17 | XMS_ITS | Encounter Summary ---
Author Organization [facility] [employer] [facility] Address [id number] [address] [place] [address] Care Team Providers Care Discount Clerk Name Role Phone Michael Steiner DO Primary Care Provider [phone] Encounter Details Date Type Department Care Team (Late st Contact Info) Description 07/31/2023 Telephone [facility] Pulmonary/Sleep Medicine [address] [address] Grace Meadows DO [address] [address] Social History Tobacco Use Types Packs/Day Years Used Date Smoking Tobacco: Former Cigarettes 1 40 0 09/1981 - 09/2021 Smokeless Tobacco: Former Chew Comments:5-6 cigerettes a da y Alcohol Use Standard Drinks/Week Comments Not Currently 0 (1 standard drink = 0.6 oz pur e alcohol) last use 15 years ago [facility] Utilities Answer Date Recorded In the past 12 months has [employer] electric, gas, oil, or water company threatened to shut off services in your home? No 07/25/2023 Social Connection and Isolation Panel Answer Date Recorded In a typical week, how many times do you talk on the phone with family, friends, or neighbors? Three times a week 07/25/2023 How often do you get togethe r with friends or relatives? Three times a week 07/25/2023 How often do you attend chur ch or protestant services? More than 4 times [...] Answer Date Recorded Total Score 0 07/01/2023 [facility] of Occupat ional Health - Occupational Stress [...] Internal Medicine - Family Medicine [address] [place] [address] Michael Steiner DO [address] [place] [address] documented as of this encounter Visit Diagnoses Not on filedocumented in this encounter Additional Health Concerns Infection Onset Date Last Indicated Resolved Time COVID-19 Rule-Out 12/17/2023 12/17/2023 12/17/2023 1:50 PM EDT Assessment Noted Time PHQ-9 Depression Total Score: 0 07/01/19 2:19 PM EST documented as of this encounter Care Teams Discount Clerk Relationship Specialty Start Date End Date Michael Steiner DO [address] [place] [address] PCP - General Internal Medicine 12/17/23 documented as of this encounter
--- OUTSIDE RECORDS SUMMARY | 2025-02-13 11:17 | XMS_ITS | Encounter Summary ---
Author Organization [employer] [facility] tem Address [id number] [address] [place] [address] Care Team Providers Care Pumper Helper Name Role Phone Michael Steiner DO Primary Care Provider [phone] Reason for Referral * Consultation (Routine) - Closed Specialty Diagnoses / Procedures Referred By Rick rahman Referred To Contact Orthopaedic Surgery / MED-SURG/ORTHOPEDICS Diagnoses Closed wedge compression fracture of T6 vertebra with routine healing Michael Steiner DO [address] [place] [address] Phone: tel: fax: Jair Huertas DO Phone: tel: fax: Referral ID Status Reason Start Date Expiration Date V isits Requested Visits Authorized [id number] Closed Specialty Services Required 09/14/2023 09/13/2024 4 4 Encounter Details Date Type Department Care Team (Late st Contact Info) Description 09/14/2023 Orders Only [facility] Internal Medicine - Family Medicine [address] [place] [address] Michael Steiner DO [address], [place] [phone] Closed wedge compression fracture of T6 vertebra [...] alcohol) last use 15 years ago [facility] Utilities Answer Date Recorded In the past 12 months has th e [employer], gas, oil, or water [employer]) threatened to shut off services in your home? No 08/28/2023 Social Connection and Isolation Panel Answer Date Recorded In a typical week, how many times do you talk on the phone with family, friends, or neighbors? Three times a week 07/25/2023 How often do you get togethe r with friends or relatives? Three times a week 07/25/2023 How often do you attend [facility] or bahai services? More than 4 times per year [...] Answer Date Recorded Total Score 0 09/09/2023 [facility] Occupat ional Health [...] Medicine - Family Medicine [address] [place] [address] Michael Steiner DO [address] [place] [address] documented as of this encounter Results * [...] documented as of this encounter Care Teams Pumper Helper Relationship Specialty Start Date End Date Michael Steiner DO [address] [place] [address] PCP - General Internal Medicine 12/17/23 documented as of this encounter
--- OUTSIDE RECORDS SUMMARY | 2025-02-13 11:17 | XMS_ITS | Encounter Summary ---
Author Organization [employer] Address [id number] [address] [place] [address] Care Team Providers Care Instrument Technician Apprentice Name Role Phone Michael Steiner DO Primary Care Provider [phone] Encounter Details Date Type Department Care Team (Late st Contact Info) Description 07/31/2023 [facility]phone [facility] [address] [place] [phone] Antoinette Sanchez CNA Social History Tobacco Use Types Packs/Day Years Used Date Smoking Tobacco: Former Cigarettes 1 40 0 09/1981 - 09/2021 Smokeless Tobacco: Former Chew Comments:5-6 cigerettes a da y Alcohol Use Standard Drinks/Week Comments Not Currently 0 (1 standard drink = 0.6 oz pur e alcohol) last use 15 years ago [facility] Utilities Answer Date Recorded In the past 12 months has [employer], gas, oil, or water [employer] threatened to shut off services in your home? No 07/25/2023 Social Connection and Isolation Panel Answer Date Recorded In a typical week, how many times do you talk on the phone with family, friends, or neighbors? Three times a week 07/25/2023 How often do you get togethe r with friends or relatives? Three times a week 07/25/2023 How often do you attend [facility] or baptism services? More than 4 times [...] Internal Medicine - Family Medicine [address] [place] [address] Michael Steiner DO [address] [place] [address] documented as of this encounter Visit Diagnoses Not on filedocumented in this encounter Additional Health Concerns Infection Onset Date Last Indicated Resolved Time COVID-19 Rule-Out 12/17/2023 12/17/2023 12/17/2023 1:50 PM EDT Assessment Noted Time PHQ-9 Depression Total Score: 0 07/01/19 2:19 PM EST documented as of this encounter Care Teams Instrument Technician Apprentice Relationship Specialty Start Date End Date Michael Steiner DO [address] [place] [address] PCP - General Internal Medicine 12/17/23 documented as of this encounter
--- OUTSIDE RECORDS SUMMARY | 2025-02-13 11:17 | XMS_ITS | Encounter Summary ---
Author Organization [employer] Address [facility]-[id number] [address] [place] [address] Care Team Providers Care Insole Doubler Name Role Phone Michael Steiner DO Primary Care Provider [phone] Encounter Details Date Type Department Care Team (Late st Contact Info) Description 07/30/2023 Telephone [facility] Pulmonary/Sleep Medicine [address] [place] [phone] Shari Garcia RN Social History Tobacco Use Types Packs/Day Years Used Date Smoking Tobacco: Former Cigarettes 1 40 0 09/1981 - 09/2021 Smokeless Tobacco: Former Chew Comments:5-6 cigerettes a da y Alcohol Use Standard Drinks/Week Comments Not Currently 0 (1 standard drink = 0.6 oz pur e alcohol) last use 15 years ago [facility] Utilities Answer Date Recorded In the past 12 months has [employer], gas, oil, or water [employer] threatened to shut off services in your [...] Answer Date Recorded Total Score 0 07/01/2023 [facility] of Occupat ional Health - Occupational [...] Faxed order for conserver device testing to [facility] documented in this encounter Plan of Treatment Upcoming Encounters Date Type Department Care Team (Late st Contact Info) Description 03/15/2025 1:30 PM EST Office Visit [facility] Internal Medicine - Family Medicine [address] [place] [address] Michael Steiner DO [address] [place] [address] documented as of this encounter Visit Diagnoses Not on filedocumented in this encounter Additional Health Concerns Infection Onset Date Last Indicated Resolved Time COVID-19 Rule-Out 12/17/2023 12/17/2023 12/17/2023 1:50 PM EDT Assessment Noted Time PHQ-9 Depression Total Score: 0 07/01/19 2:19 PM EST documented as of this encounter Care Teams Insole Doubler Relationship Specialty Start Date End Date Michael Steiner DO [address] [place] [address] PCP - General Internal Medicine 12/17/23 documented as of this encounter
--- OUTSIDE RECORDS SUMMARY | 2025-02-13 11:17 | XMS_ITS | Encounter Summary ---
Author Organization [employer] [facility] tem Address [id number] [address] [place] [address] Care Team Providers Care Hire Car Driver Name Role Phone Michael Steiner DO Primary Care Provider [phone] Encounter Details Date Type Department Care Team (Late st Contact Info) Description 10/24/2024 Orders Only [facility] Internal Medicine - Family Medicine [address] [place] [address] Michael Steiner DO [address] [place] [address] Venous insufficiency of both lower extremities (Primary [...] Answer Date Recorded Total Score 0 10/27/2024 [facility] [...] - Family Medicine [address] [place] [address] Michael Steiner DO [address] [place] [address] documented as of this encounter Visit Diagnoses Diagnosis Venous insufficiency of both lower extremities- Primary documented in this encounter Additional Health Concerns Assessment Noted Time PHQ-9 Depression Total Score: 15 025 11:42 AM EDT documented as of this encounter Care Teams Hire Car Driver Relationship Specialty Start Date End Date Michael Steiner DO [address] [place] [address] PCP - General Internal Medicine 12/17/23 documented as of this encounter
--- OUTSIDE RECORDS SUMMARY | 2025-02-13 11:17 | XMS_ITS | Encounter Summary ---
Author Organization [employer] tem Address [facility]-[id number] [address] [place] [address] Care Team Providers Care Clinical Tech Name Role Phone Michael Steiner DO Primary Care Provider [phone] Encounter Details Date Type Department Care Team (Late st Contact Info) Description 10/24/2024 Telephone [facility] Internal Medicine - Family Medicine [address] [place] [address] Megan Talley, ELIAN Social History Tobacco Use Types Packs/Day Years Used Date Smoking Tobacco: Former Cigarettes 1 40 0 09/1981 - 09/2021 Smokeless Tobacco: Never Comments:5-6 cigerettes a da y Alcohol Use Standard Drinks/Week Comments Not Currently 0 (1 standard drink = 0.6 oz pur e alcohol) last use 15 years ago [facility] Utilities Answer Date Recorded In the past 12 months has [employer], gas, oil, or water [email or web address] threatened to shut off services in your [...] Answer Date Recorded Total Score 0 10/27/2024 [facility] Occupat ional Health [...] - Family Medicine [address] [place] [address] Michael Steiner DO [address] [place] [address] documented as of this encounter Visit Diagnoses Not on filedocumented in this encounter Additional Health Concerns Assessment Noted Time PHQ-9 Depression Total Score: 15 025 11:42 AM EDT documented as of this encounter Care Teams Clinical Tech Relationship Specialty Start Date End Date Michael Steiner DO [address] [place] [address] PCP - General Internal Medicine 12/17/23 documented as of this encounter
--- OUTSIDE RECORDS SUMMARY | 2025-02-13 11:17 | XMS_ITS | Encounter Summary ---
Author Organization [employer] s tem Address [id number] [address] [place] [address] Care Team Providers Care Clinical Esthetician Name Role Phone ObduliaMichael Janae CABRERA Primary Care Provider [phone] Reason for Visit * Reason Onset Date Comments Transition Of Care 07/28/2023 Encounter Details Date Type Department Care Team (Late st Contact Info) Description 07/28/2023 [facility]phone [facility] Family Medicine [address] [place] [address] Joan Gunderson, filament tester Of Care Social History Tobacco Use Types [...] often do you attend [facility] or methodist services? More than 4 times [...] Answer Date Recorded Total Score 0 07/01/2023 [facility] of Occupat ional Health - Occupational [...] Discharge Specialty: Pulmonology Name of Discharging Facility: [facility] Date of Facility Discharge: 07.25.23-07.27.23 Date of Interactive Contact and Name of Public Speaking Teacher: 07.28.23 0003 Spoke with the patient. Medication Review Completed: [...] -Oxygen and supplies are being provided by [facility] * Telephone Encounter - Michael Steiner DO - 07/28/2023 2:46 PM EDT Message noted. Please change the 08/10/23 visit to a TCM visit documented in this encounter Plan of Treatment Upcoming Encounters Date Type Department Care Team (Late st Contact Info) Description 03/15/2025 1:30 PM EST Office Visit [facility] Internal Medicine - Family Medicine [address] [place] [address] Michael Steiner DO [address] [place] [address] documented as of this encounter Visit Diagnoses Not on filedocumented in this encounter Additional Health Concerns Infection Onset Date Last Indicated Resolved Time COVID-19 Rule-Out 12/17/2023 12/17/2023 12/17/2023 1:50 PM EDT Assessment Noted Time PHQ-9 Depression Total Score: 0 07/01/19 2:19 PM EST documented as of this encounter Care Teams Clinical Esthetician Relationship Specialty Start Date End Date Michael Steiner DO [address] [place] [address] PCP - General Internal Medicine 12/17/23 documented as of this encounter
--- OUTSIDE RECORDS SUMMARY | 2025-02-13 11:17 | XMS_ITS | Encounter Summary ---
Author Organization [employer] Address [facility][id number] [address] [place] [address] Care Team Providers Care Rate Analyst Name Role Phone Michael Steiner DO Primary Care Provider [phone] Encounter Details Date Type Department Care Team (Late st Contact Info) Description 09/17/2023 Telephone [facility] Pulmonary/Sleep Medicine [address] [address] Shari Garcia RN Social History Tobacco Use Types Packs/Day Years Used Date Smoking Tobacco: Every Day Cigarettes 1 40 Started: 09/1981; Last attempted to quit: 09/2021 Smokeless Tobacco: Former Chew Comments:5-6 cigerettes a da y Alcohol Use Standard Drinks/Week Comments Not Currently 0 (1 standard drink = 0.6 oz pur e alcohol) last use 15 years ago [facility] Utilities Answer Date Recorded In the past 12 months has [employer], gas, oil, or water [employer] threatened to shut off services in your home? No 08/28/2023 Social Connection and Isolation Panel Answer Date Recorded In a typical week, how many times do you talk on the phone with family, friends, or neighbors? Three times a week 07/25/2023 How often do you get togethe r with friends or relatives? Three times a week 07/25/2023 How often do you attend [facility] or catholic services? More than 4 [...] Answer Date Recorded Total Score 0 09/09/2023 [facility] Occupat ional Health - Occupational Stress [...] Garcia RN - 09/17/2023 7:32 AM EDT Teradata Architect spoke to patient and informed per Dr [...] Internal Medicine - Family Medicine [address] [place] [address] Michael Steiner DO [address] [place] [address] documented as of this encounter Visit Diagnoses Not on filedocumented in this encounter Additional Health Concerns Infection Onset Date Last Indicated Resolved Time COVID-19 Rule-Out 12/17/2023 12/17/2023 12/17/2023 1:50 PM EDT Assessment Noted Time PHQ-9 Depression Total Score: 0 09/09/19 1:00 PM EDT documented as of this encounter Care Teams Rate Analyst Relationship Specialty Start Date End Date Michael Steiner DO [address] [place] [address] PCP - General Internal Medicine 12/17/23 documented as of this encounter
--- OUTSIDE RECORDS SUMMARY | 2025-02-13 11:17 | XMS_ITS | Encounter Summary ---
Author Organization [facility] [employer] [facility] tem Address [id number] [address] [place] [address] Care Team Providers Care Nurse Receptionist Name Role Phone Michael Steiner DO Primary Care Provider [phone] Reason for Referral * Diagnostic Imaging (Routine) - Closed Specialty Diagnoses / Procedures Referred By Rick rahman Referred To Contact Radiology Diagnoses Pulmonary nodule Procedures PET CT skull to thigh Grupo Nguyen MD [address] [address] Phone: tel: fax: [place] [address] [place] [address] Phone: tel: Referral ID Status Reason Start Date Expiration Date Visits Re quested Visits Authorized [id number] Closed 10/17/2021 10/17/2022 1 1 Encounter Details Date Type Department Care Team (Late st Contact Info) Description 10/17/2021 Orders Only [facility] Pulmonary/Sleep Medicine [address] [phone] Juli Mixon RN Pulmonary nodule (Primary Dx) [...] week 01/09/2020 How often do you attend advent or quaker serv ices? Never 01/09/2020 Do [...] - Family Medicine [address] [place] [address] Michael Steiner, DO [address] [place] [address] documented as of this encounter Results * PET CT skull to thigh (11/04/2021 10:01 AM EDT) Anatomical Region Laterality Modality Abdomen, Lung, Pelvis, Spine , Chest, Neck, Head, Head and Neck, Body N/A Positron Emission Graham graphy (PET) 11/04/2021 10:5 0 AM EDT Narrative 11/04/2021 10:57 AM EDT Clinical history:Pulmonary nodule Previous malignancy:No Indication:Malignant potential Radioisotope:17.0 millicuries FDG. Blood [id number] milligrams per deciliter. Blood glucose reference range [...] Indication:Malignant potential Radioisotope:17.0 millicuries FDG. Blood milligrams perdeciliter. Blood glucose reference range 65-90 [...] documented as of this encounter Care Teams Nurse Receptionist Relationship Specialty Start Date End Date Michael Steiner DO [address] [place] [address] PCP - General Internal Medicine 12/17/23 documented as of this encounter
--- OUTSIDE RECORDS SUMMARY | 2025-02-13 11:17 | XMS_ITS | Encounter Summary ---
Author Organization [employer] s tem Address [id number] [address] [place] [address] Care Team Providers Care Events Associate Name Role Phone Michael Steiner DO Primary Care Provider [phone] Encounter Details Date Type Department Care Team (Late st Contact Info) Description 11/01/2024 [facility]phone [facility] Medicine [address] [address] Juan Diego Esquivel CMA Social History Tobacco Use Types Packs/Day Years Used Date Smoking Tobacco: Former Cigarettes 1 40 0 09/1981 - 09/2021 Smokeless Tobacco: Never Comments:5-6 cigerettes a da y Alcohol Use Standard Drinks/Week Comments Not Currently 0 (1 standard drink = 0.6 oz pur e alcohol) last use 15 years ago [facility] Utilities Answer Date Recorded In the past 12 months has [facility], gas, oil, or water [employer] threatened to shut off services in [...] How often do you attend chur or jehovah's witness services? More than 4 [...] Answer Date Recorded Total Score 0 10/27/2024 [facility] of Occupat ional Health [...] - Family Medicine [address] [place] [address] Michael Steiner, [address] [facility] [place] [address] documented as of this encounter Visit Diagnoses Not on filedocumented in this encounter Additional Health Concerns Assessment Noted Time PHQ-9 Depression Total Score: 0 10/28/19 25 4:16 PM EDT documented as of this encounter Care Teams Events Associate Relationship Specialty Start Date End Date Michael Steiner DO [address] [place] [address] PCP - General Internal Medicine 12/17/23 documented as of this encounter
--- OUTSIDE RECORDS SUMMARY | 2025-02-13 11:18 | XMS_ITS | Encounter Summary ---
Author Organization [employer] Address [place]-[id number] [address] [place] [address] Care Team Providers Care Freedom Of Information Officer Name Role Phone Michael Steiner DO Primary Care Provider [phone] Encounter Details Date Type Department Care Team (Late st Contact Info) Description 02/03/2024 Telephone [facility] Pul[facility]/Sleep Medicine [address] [phone] Shari Garcia RN Social History Tobacco Use Types Packs/Day Years Used Date Smoking Tobacco: Former Cigarettes 1 40 0 09/1981 - 09/2021 Smokeless Tobacco: Never Comments:5-6 cigerettes a da y Alcohol Use Standard Drinks/Week Comments Not Currently 0 (1 standard drink = 0.6 oz pur e alcohol) last use 15 years ago [facility] Utilities Answer Date Recorded In the past 12 months has [employer], gas, oil, or water [employer] threatened to shut off services in [...] How often do you attend chur or jewish services? More than 4 times [...] Answer Date Recorded Total Score 0 01/04/2024 [facility] Occupat ional Health - Occupational [...] line and requested a script fo POC. [facility] from a Pattern Lease Inspector. Patient was to be seen in our office on 01-14-24. Office appt was cancelled d/t patient insurance isnot accepted at our office. Patient will need to contact her insurance company and find out what veneer redrier will be covered under her insurance. Then contact Dr Steiner for a referral. Norma agreeable documented in this encounter Plan of Treatment Upcoming Encounters Date Type Department Care Team (Late st Contact Info) Description 03/15/2025 1:30 PM EST Office Visit [facility] Internal Medicine - Family Medicine [address] [place] [phone] Michael Steiner DO [address] [place] [address] documented as of this encounter Visit Diagnoses Not on filedocumented in this encounter Additional Health Concerns Assessment Noted Time PHQ-9 Depression Total Score: 0 01/04/20 24 1:01 PM EDT documented as of this encounter Care Teams Freedom Of Information Officer Relationship Specialty Start Date End Date Michael Steiner DO [address] [place] [address] PCP - General Internal Medicine 12/17/23 documented as of this encounter
--- OUTSIDE RECORDS SUMMARY | 2025-02-13 11:18 | XMS_ITS | Encounter Summary ---
Author Organization [facility] Address [id number] [address] [place] [address] Care Team Providers Care Html Web Developer Name Role Phone Michael Steiner DO Primary Care Provider [phone] Reason for Visit * Reason Onset Date Comments Med Refill 02/24/2024 Encounter Details Date Type Department Care Team (Late st Contact Info) Description 02/24/2024 Refill [facility] Internal Medicine - Family Medicine [address] [place] [address] Michael Steiner DO [address] [place] [address] Peripheral polyneuropathy Social History Tobacco Use Types [...] Answer Date Recorded Total Score 0 01/04/2024 [facility] of Occupat ional Health - Occupational Stress [...] - Family Medicine [address] [place] [address] Michael Steiner DO [address] [place] [address] documented as of this encounter Visit Diagnoses Diagnosis Peripheral polyneuropathy documented in this encounter Additional Health Concerns Assessment Noted Time PHQ-9 Depression Total Score: 0 01/04/20 24 1:01 PM EDT documented as of this encounter Care Teams Html Web Developer Relationship Specialty Start Date End Date Michael Steiner DO [address] [place] [address] PCP - General Internal Medicine 12/17/23 documented as of this encounter
--- OUTSIDE RECORDS SUMMARY | 2025-02-13 11:18 | XMS_ITS | Encounter Summary ---
Author Organization [facility] tem Address [id number] [address] [place] [address] Care Team Providers Care High School Professional Name Role Phone Michael Steiner DO Primary Care Provider [phone] Reason for Referral * Consultation (Routine) - Closed Specialty Diagnoses / Procedures Referred By Contac t Referred To Contact Pulmonary Disease Diagnoses Chronic respiratory failure with hypoxia and hypercapnia ([facility]) Michael Steiner DO [address] [place] [address] Phone: tel: fax: Sydnie Guerrero DO [address] [place] [address] Phone: tel: fax: Referral ID Status Reason Start Date Expiration Date V isits Requested Visits Authorized [id number] Closed Specialty Services Required 02/09/2024 02/08/2025 1 1 Encounter Details Date Type Department Care Team (Late st Contact Info) Description 02/09/2024 Orders Only [facility] Internal Medicine - Family Medicine [address] [place] [address] Michael Steiner DO [address] [place] [address] Chronic respiratory failure with hypoxia and hypercapnia (CMS-HCC) (Primary Dx) Social History Tobacco Use Types Packs/Day Years Used Date Smoking Tobacco: Former Cigarettes 1 40 0 09/1981 - 09/2021 Smokeless Tobacco: Never Comments:5-6 cigerettes a da y Alcohol Use Standard Drinks/Week Comments Not Currently 0 (1 standard drink = 0.6 oz pur e alcohol) last use 15 years ago [facility] Utilities Answer Date Recorded In the past 12 months has e [employer], gas, oil, or water [employer] threatened to shut off services in your [...] do you attend up health system or latter-day services? More than 4 times [...] Answer Date Recorded Total Score 0 01/04/2024 [facility] of Occupat ional Health - Occupational Stress [...] Recorded Do you need help finding a [email or web address] career center and/or a training program? No [...] Medicine - Family Medicine [address] [place] [address] Michael Steiner DO [address] [place] [address] documented as of this encounter Results * Referral to [facility] Pulmonary Medicine - [place], [place] (03/17/2024) 03/17/2024 Michael Steiner DO OUTPATIENT REFERRAL ORDERABLES F inal Result MANUALLY TRANSCRIBED RESULTS documented in this encounter Visit Diagnoses Diagnosis Chronic respiratory failure with hypoxia and hypercapnia (CMS-HCC)- Primary documented in this encounter Additional Health Concerns Assessment Noted Time PHQ-9 Depression Total Score: 0 01/04/20 24 1:01 PM EDT documented as of this encounter Care Teams High School Professional Relationship Specialty Start Date End Date Michael Steiner DO [address] [place] [address] PCP - General Internal Medicine 12/17/23 documented as of this encounter
--- OUTSIDE RECORDS SUMMARY | 2025-02-13 11:18 | XMS_ITS | Encounter Summary ---
Author Organization [employer] tem Address [id number] [address] [place] [address] Care Team Providers Care Manager Service Desk Name Role Phone Michael Steiner DO Primary Care Provider [phone] Encounter Details Date Type Department Care Team (Late st Contact Info) Description 01/25/2024 [facility]phone [facility] - Family Medicine [address] [place] [phone] Juan Diego Esquivel CMA Social History Tobacco Use Types Packs/Day Years Used Date Smoking Tobacco: Former Cigarettes 1 40 0 09/1981 - 09/2021 Smokeless Tobacco: Never Comments:5-6 cigerettes a da y Alcohol Use Standard Drinks/Week Comments Not Currently 0 (1 standard drink = 0.6 oz pur e alcohol) last use 15 years ago [facility] Utilities Answer Date Recorded In the past 12 months has [employer], gas, oil, or water [employer] threatened to shut off services in your [...] How often do you attend chur or buddhism services? More than 4 times [...] Answer Date Recorded Total Score 0 01/04/2024 [facility] of Occupat ional Health - [...] - Family Medicine [address] [place] [address] Michael Steiner DO [address] [place] [address] documented as of this encounter Visit Diagnoses Not on filedocumented in this encounter Additional Health Concerns Assessment Noted Time PHQ-9 Depression Total Score: 0 01/04/20 24 1:01 PM EDT documented as of this encounter Care Teams Manager Service Desk Relationship Specialty Start Date End Date Michael Steiner DO [address] [place] [address] PCP - General Internal Medicine 12/17/23 documented as of this encounter
--- OUTSIDE RECORDS SUMMARY | 2025-02-13 11:18 | XMS_ITS | Encounter Summary ---
Author Organization [facility] tem Address [id number] [address] [place] [address] Care Team Providers Care Hearing Aide Technician Name Role Phone Michael Steiner DO Primary Care Provider [phone] Encounter Details Date Type Department Care Team (Late st Contact Info) Description 01/26/2024 Orders Only [facility] Internal Medicine - Family Medicine [address] [place] [address] Michael Steiner DO [address] [place] [address] Peripheral polyneuropathy (Primary Dx) Social History Tobacco Use Types Packs/Day Years Used Date Smoking Tobacco: Former Cigarettes 1 40 0 09/1981 - 09/2021 Smokeless Tobacco: Never Comments:5-6 cigerettes a da y Alcohol Use Standard Drinks/Week Comments Not Currently 0 (1 standard drink = 0.6 oz pur e alcohol) last use 15 years ago [facility] Utilities Answer Date Recorded In the past 12 months has [employer], gas, oil, or water company threatened to [...] Answer Date Recorded Total Score 0 01/04/2024 [facility] of Occupat ional Health [...] Internal Medicine - Family Medicine [address] [place] [address] Michael Steiner DO [address] [place] [address] documented as of this encounter Visit Diagnoses Diagnosis Peripheral polyneuropathy- Primary documented in this encounter Additional Health Concerns Assessment Noted Time PHQ-9 Depression Total Score: 0 01/04/20 1:01 PM EDT documented as of this encounter Care Teams Hearing Aide Technician Relationship Specialty Start Date End Date Michael Steiner DO [address] [place] [address] PCP - General Internal Medicine 12/17/23 documented as of this encounter
--- OUTSIDE RECORDS SUMMARY | 2025-02-13 11:18 | XMS_ITS | Encounter Summary ---
Author Organization [employer] s tem Address [id number] [address] [place] [address] Care Team Providers Care Upholsterer Limousine And Hearse Name Role Phone Michael Steiner DO Primary Care Provider [phone] Encounter Details Date Type Department Care Team (Late st Contact Info) Description 03/07/2024 Orders Only [facility] Internal Medicine - Family Medicine [address] [place] [address] Michael Steiner DO [address] [place] [address] Chronic heart failure with preserved ejection fraction ([facility]-H[facility]) Social History Tobacco Use Types Packs/Day Years Used Date Smoking Tobacco: Former Cigarettes 1 40 0 09/1981 - 09/2021 Smokeless Tobacco: Never Comments:5-6 cigerettes a da y Alcohol Use Standard Drinks/Week Comments Not Currently 0 (1 standard drink = 0.6 oz pur e alcohol) last use 15 years ago [facility] Utilities Answer Date Recorded In [...] Answer Date Recorded Total Score 0 01/04/2024 [facility] of Occupat ional Health - [...] Internal Medicine - Family Medicine [address] [place] [address] Michael Steiner DO [address] [place] [address] documented as of this encounter Visit Diagnoses Diagnosis Chronic heart failure with preserved ejection fraction (CMS-HCC) documented in this encounter Additional Health Concerns Assessment Noted Time PHQ-9 Depression Total Score: 0 01/04/20 24 1:01 PM EDT documented as of this encounter Care Teams Upholsterer Limousine And Hearse Relationship Specialty Start Date End Date Michael Steiner DO [address] [place] [address] PCP - General Internal Medicine 12/17/23 documented as of this encounter
--- OUTSIDE RECORDS SUMMARY | 2025-02-13 11:18 | XMS_ITS | Encounter Summary ---
Author Organization [employer] tem Address [id number] [address] [place] [address] Care Team Providers Care Oil Extractor Name Role Phone Obdulia Michael Janae CABRERA Primary Care Provider Encounter Details Date Type Department Care Team (Late st Contact Info) Description 08/03/2023 Orders Only [facility] Pulmonary/Sleep Medicine [address] [phone] Thang Vora RN Chronic hypoxic respiratory failure ([facility]) (Primary Dx) Social History Tobacco Use [...] In the past 12 months has th [employer], gas, oil, or water company threatened [...] How often do you attend [facility] or [facility] services? More than 4 [...] help finding a [facility] career center and/or a training [...] Internal Medicine - Family Medicine [address] [place] [address] Michael Steiner DO [address] [place] [address] documented as of this encounter Visit Diagnoses Diagnosis Chronic hypoxic respiratory failure (CMS-HCC)- Primary documented in this encounter Additional Health Concerns Infection Onset Date Last Indicated Resolved Time COVID-19 Rule-Out 12/17/2023 12/17/2023 12/17/2023 1:50 PM EDT Assessment Noted Time PHQ-9 Depression Total Score: 0 07/01/19 2:19 PM EST documented as of this encounter Care Teams Oil Extractor Relationship Specialty Start Date End Date Michael Steiner DO [address] [place] [address] PCP - General Internal Medicine 12/17/23 documented as of this encounter
--- OUTSIDE RECORDS SUMMARY | 2025-02-13 11:18 | XMS_ITS | Encounter Summary ---
Author Organization [facility] tem Address [id number] [address] [place] [address] Care Team Providers Care Tile And Marble Installer Name Role Phone Michael Steiner DO Primary Care Provider [phone] Reason for Visit * Reason Comments Med Refill Encounter Details Date Type Department Care Team (Late st Contact Info) Description 06/28/2024 Refill [facility] Internal Medicine - Family Medicine [address] [place] [address] Michael Steiner DO [address] [place] [address] Spinal stenosis of lumbar region with neurogenic [...] Recorded In the past 12 months has [employer], gas, oil, or water company threatened [...] often do you attend chur ch or taoist services? More than 4 times per year [...] Answer Date Recorded Total Score 0 01/04/2024 [facility] [place] of Occupat ional Health - Occupational Stress [...] Internal Medicine - Family Medicine [address] [place] [address] Michael Steiner DO [address] [place] [address] documented as of this encounter Visit Diagnoses Diagnosis Spinal stenosis of lumbar region with neurogenic claudication documented in this encounter Additional Health Concerns Assessment Noted Time PHQ-9 Depression Total Score: 0 01/04/20 24 1:01 PM EDT documented as of this encounter Care Teams Tile And Marble Installer Relationship Specialty Start Date End Date Michael Steiner DO [address] [place] [address] PCP - General Internal Medicine 12/17/23 documented as of this encounter
--- OUTSIDE RECORDS SUMMARY | 2025-02-13 11:18 | XMS_ITS | Encounter Summary ---
Author Organization [employer] s tem Address [id number] [address] [place] [address] Care Team Providers Care Reflow Operator Name Role Phone Michael Steiner DO Primary Care Provider [phone] Encounter Details Date Type Department Care Team (Late st Contact Info) Description 03/23/2024 Orders Only [facility] Internal Medicine - Family Medicine [address] [place] [address] Sofya Coe CMA Chronic respiratory failure with hypoxia and hypercapnia ([facility]) Social History Tobacco Use Types Packs/Day Years Used Date Smoking Tobacco: Former Cigarettes 1 40 0 09/1981 - 09/2021 Smokeless Tobacco: Never Comments:5-6 cigerettes a da y Alcohol Use Standard Drinks/Week Comments Not Currently 0 (1 standard drink = 0.6 oz pur e alcohol) last use [address] [facility] Utilities Answer Date Recorded In the past 12 months has [employer], gas, oil, or water [employer] threatened to shut off services in your [...] often do you attend [facility] or druze services? More than 4 times [...] Answer Date Recorded Total Score 0 01/04/2024 [facility] of Occupat ional Health - [...] Internal Medicine - Family Medicine [address] [place] [address] Michael Steiner DO [facility] [place] [address] documented as of this encounter Procedures Procedure Name Priority Date/Time Associated Diagnosis Comments AMB REFERRAL TO PULMONOLOGY Routine 03/17/2024 Chronic respiratory failure with hypoxia and hypercapnia ([facility]) documented in this encounter Results * [facility] [place] (03/17/2024) 03/17/2024 Michael Steiner DO OUTPATIENT REFERRAL ORDERABLES F inal Result MANUALLY TRANSCRIBED RESULTS documented in this encounter Visit Diagnoses Diagnosis Chronic respiratory failure with hypoxia and hypercapnia (CMS-HCC) documented in this encounter Additional Health Concerns Assessment Noted Time PHQ-9 Depression Total Score: 0 01/04/20 1:01 PM EDT documented as of this encounter Care Teams Reflow Operator Relationship Specialty Start Date End Date Michael Steiner DO [address] [place] [address] PCP - General Internal Medicine 12/17/23 documented as of this encounter
--- OUTSIDE RECORDS SUMMARY | 2025-02-13 11:18 | XMS_ITS | Encounter Summary ---
Author Organization [employer] s tem Address [id number] [address] [place] [address] Care Team Providers Care Regional Coordinator Name Role Phone Michael Steiner DO Primary Care Provider Encounter Details Date Type Department Care Team (Late st Contact Info) Description 07/09/2023 Orders Only [facility] Internal Medicine - Family Medicine [address] [place] [address] Michael Steiner DO [address] [place] [address] Chronic heart failure with preserved ejection fraction ([facility]-HCC) Social History Tobacco Use Types Packs/Day [...] week 01/09/2020 How often do you attend latter day or hoahaoism serv ices? Never 01/09/2020 Do [...] Recorded Do you need help finding a [employer] center and/or a training program? No 01/09/2020 [...] Medicine - Family Medicine [address] [place] [address] Michael Steiner, DO [address] [facility] [place] [address] documented as of this encounter Visit Diagnoses [...] documented as of this encounter Care Teams Regional Coordinator Relationship Specialty Start Date End Date Michael Steiner DO [address] [place] [address] PCP - General Internal Medicine 12/17/23 documented as of this encounter
--- OUTSIDE RECORDS SUMMARY | 2025-02-13 11:18 | XMS_ITS | Encounter Summary ---
Author Organization [employer] tem Address [id number] [address] [place] [address] Care Team Providers Care Web Architect Name Role Phone Michael Steiner DO Primary Care Provider [phone] Encounter Details Date Type Department Care Team (Late st Contact Info) Description 08/11/2023 [facility] Medicine [address] [address] Juan Diego Esquivel CMA Social History Tobacco Use Types Packs/Day Years Used Date Smoking Tobacco: Former Cigarettes 1 40 0 09/1981 - 09/2021 Smokeless Tobacco: Former Chew Comments:5-6 cigerettes a da y Alcohol Use Standard Drinks/Week Comments Not Currently 0 (1 standard drink = 0.6 oz pur e alcohol) last use 15 years ago [facility] Utilities Answer Date Recorded In the past 12 months has [employer], gas, oil, or water [employer] threatened to shut off services in your [...] How often do you attend chur or gnosticist services? More than 4 times per year [...] Answer Date Recorded Total Score 0 08/10/2023 [facility] of Occupat ional [...] wouldlike to go to Dr Jair Balbuena [address] [place] [address] fax number is [phone]. * Telephone Encounter - Michael Steiner DO [...] Internal Medicine - Family Medicine [address] [place] [address] Michael Steiner DO [address] [place] [address] documented as of this encounter Visit Diagnoses Not on filedocumented in this encounter Additional Health Concerns Infection Onset Date Last Indicated Resolved Time COVID-19 Rule-Out 12/17/2023 12/17/2023 12/17/2023 1:50 PM EDT Assessment Noted Time PHQ-9 Depression Total Score: 0 08/10/19 1:05 PM EDT documented as of this encounter Care Teams Web Architect Relationship Specialty Start Date End Date Michael Steiner DO [address] [place] [address] PCP - General Internal Medicine 12/17/23 documented as of this encounter
--- OUTSIDE RECORDS SUMMARY | 2025-02-13 11:18 | XMS_ITS | Encounter Summary ---
Author Organization [employer] tem Address [id number] [address] [place] [address] Care Team Providers Care Soil Chemist Name Role Phone Michael Steiner DO Primary Care Provider [phone] Reason for Referral * Misc (Routine) - Closed Specialty Diagnoses / Procedures Referred By Contac t Referred To Contact Diagnoses Chronic respiratory failure with hypoxia and hypercapnia (CMS-HCC) Procedures Oxygen Therapy Michael Steiner DO [address] [place] [address] Phone: tel: fax: Referral ID Status Reason Start Date Expiration Date Visits Re quested Visits Authorized [id number] Closed 08/13/2023 08/12/2024 1 1 Encounter Details Date Type Department Care Team (Late st Contact Info) Description 08/13/2023 Orders Only [facility] Internal Medicine - Family Medicine [address] [place] [address] Michael Steiner DO [address] [place] [address] Chronic respiratory failure with hypoxia and hypercapnia [...] Answer Date Recorded Total Score 0 08/10/2023 [facility] of Occupat ional Health - Occupational Stress [...] Internal Medicine - Family Medicine [address] [place] [address] Michael Steiner, [address] [place] [address] documented as of this encounter Visit Diagnoses Diagnosis Chronic respiratory failure with hypoxia and hypercapnia (CMS-HCC)- Primary documented in this encounter Additional Health Concerns Infection Onset Date Last Indicated Resolved Time COVID-19 Rule-Out 12/17/2023 12/17/2023 12/17/2023 1:50 PM EDT Assessment Noted Time PHQ-9 Depression Total Score: 0 08/10/19 1:05 PM EDT documented as of this encounter Care Teams Soil Chemist Relationship Specialty Start Date End Date Michael Steiner DO [address] [place] [address] PCP - General Internal Medicine 12/17/23 documented as of this encounter
--- OUTSIDE RECORDS SUMMARY | 2025-02-13 11:19 | XMS_ITS | Encounter Summary ---
Author Organization [employer] tem Address [id number] [address] [place] [address] Care Team Providers Care Gold Tooler Name Role Phone Michael Steiner DO Primary Care Provider [phone] Encounter Details Date Type Department Care Team (Late st Contact Info) Description 12/15/2024 [facility] [address] [place] [address] Sofya Coe CMA Social History Tobacco Use Types Packs/Day Years Used Date Smoking Tobacco: Former Cigarettes 1 40 0 09/1981 - 09/2021 Smokeless Tobacco: Never Comments:5-6 cigerettes a da y Alcohol Use Standard Drinks/Week Comments Not Currently 0 (1 standard drink = 0.6 oz pur e alcohol) last use 15 years ago [facility] Utilities Answer Date Recorded In the past 12 months has [employer], gas, oil, or water [employer] threatened to shut off services in your [...] How often do you attend chur or pentecostal services? More than 4 times per year 07/25/2023 Do you belong to any clubs o r organizations such as episcopalian groups, unions, fraternal or athletic groups, or [...] Internal Medicine - Family Medicine [address] [place] [address] Michael Steiner DO [address] [place] [address] documented as of this encounter Goals Goal [...] as of this encounter Care Teams Gold Tooler Relationship Specialty Start Date End Date Michael Steiner DO [address] [place] [address] PCP - General Internal Medicine 12/17/23 documented as of this encounter
--- OUTSIDE RECORDS SUMMARY | 2025-02-13 11:19 | XMS_ITS | Clinical Summary ---
Author Organization [employer] Address [id number] [place] [address] Care Team Providers Care Sales Clerk Food Name Role Phone JoanMichael gonsalez Primary Care Provider [phone] Allergies Active Allergy Reactions Criticality Noted Date [...] inhaler Active ARIPiprazole (ABILIFY) 15 mg tablet Take 1 tablet (15 mg total) by mouth nightly. 024 Active doxepin (SINEquan) 75 mg capsule [...] 024 Active clonazePAM (KlonoPIN) 0.5 mg tablet Take 1 tablet (0.5 mg total) by mouth in the morning and 1 tablet (0.5 mg total) before bedtime. 024 Active lamoTRIgine (LaMICtal) 150 mg tablet Take 1 tablet (150 mg total) by mouth in the morning. 024 Active atorvastatin (LIPITOR) 80 mg tabletIndications: Atherosclerosis of belkofski coronary artery of belkofski heart without angina pectoris,Hx of hyperlipidemia Take 1 tablet (80 mg total) by mouth in the morning. 90 tablet 3 024 Active empagliflozin (JARDIANCE) 10 mg tablet tabletIndications: Chronic heart failure with preserved ejection fraction ([facility]),Atherosc lerosis of belkofski coronary artery of belkofski heart without angina pectoris Take 1 tablet (10 mg total) by mouth in the morning. TAKE 1 TABLET (10 MG TOTAL) BY MOUTH IN THE MORNING. 90 tablet 1 025 Active cyanocobalamin 1000 MCG tablet Take 1 tablet (1,000 mcg total) by mouth in the morning. Active TRINTELLIX 10 mg tablet Take 1 tablet (10 mg total) by mouth in the morning. 025 Active pantoprazole (PROTONIX) 40 mg EC tabletIndications: Gastro-esophageal reflux disease without esophagitis Take 1 tablet (40 mg total) by mouth every morning before breakfast. 90 tablet 025 Active oxygen Inhale 2 L/min continuously. Active metoprolol succinate XL (TOPROL XL) 25 mg 24 hr tabletIndications: Chronic heart failure with preserved ejection fraction ([facility]),Pulmonar y hypertension ([facility]),Nonrheum atic tricuspid valve regurgitation,Esse ntial hypertension,Ather osclerosis of belkofski coronary artery of belkofski heart without angina pectoris,History of four vessel coronary artery bypass graft,NSTEMI (non-ST elevated myocardial infarction) ([facility]) Take 1 tablet (25 mg total) by mouth nightly. 30 tablet 11 025 Active guaiFENesin (MUCINEX) 600 mg tablet extended release 12hr Take 1 tablet (600 mg total) by mouth every 12 (twelve) hours. 14 tablet 025 Active Additional Information Patient not taking.Reported on 02/06/2025 hydrOXYzine (ATARAX) 25 mg tablet Take 1 tablet (25 mg total) by mouth 2 (two) times a day as needed for anxiety. 025 Active pregabalin (LYRICA) 100 mg capsuleIndications :Peripheral polyneuropathy Take 1 capsule (100 mg total) by mouth before bedtime. 025 Active Additional Information Patient not taking.Reported on 02/06/2025 ezetimibe (ZETIA) 10 mg tabletIndications: Atherosclerotic heart disease of belk[place]ski coronary artery with other forms of angina pectoris TAKE 1 TABLET (10 MG TOTAL) BY MOUTH IN THE MORNING 90 tablet 1 025 Active propranoloL (INDERAL) 40 mg tablet Take 1 tablet (40 mg total) by mouth in the morning and at bedtime. TAKE 1 TABLET (40 MG TOTAL) BY MOUTH IN THE MORNING AND BEFORE BEDTIME 025 Active diclofenac-miSOPRO Stol (ARTHROTEC 50) 50-200 mg-mcg EC tablet Take 1 tablet by mouth in the morning and 1 tablet before bedtime. 60 tablet 2 025 Active qmmtlc-gfgasppvp-z ag,al-simeth (FIRST-MOUTHWASH BLM) 86-414-164-40 mg/30mL mouthwashIndicatio ns:Stomatitis Take 5 mL by mouth 4 (four) times a day as needed for mucositis or mouth/gum irritation. 119 mL 1 025 Active torsemide (DEMADEX) 20 mg tabletIndications: Chronic diastolic heart failure (CMS-HCC) Take 2 tablets (40 mg total) by mouth daily. 60 tablet 11 025 Active spironolactone (ALDACTONE) 25 mg tabletIndications: Chronic diastolic heart failure (CMS-HCC) Take 1 tablet (25 mg total) by mouth in the morning. 90 tablet 3 025 Active valsartan (DIOVAN) 40 mg tabletIndications: Chronic diastolic heart failure (CMS-HCC),Pulmonar y hypertension (CMS-HCC) Take 1 tablet (40 mg total) by mouth in the morning. 30 tablet 11 025 Active ondansetron ODT (ZOFRAN ODT) 4 mg disintegrating tablet Dissolve 1 tablet (4 mg total) on tongue every 8 (eight) hours as needed for nausea for up to 10 doses. 10 tablet 025 Active spironolactone (ALDACTONE) 25 mg tabletIndications: Shortness of breath,Chronic heart failure with preserved ejection fraction ([facility]) Take 1 tablet (25 mg total) by mouth in the morning. 90 tablet 024 2024 Discontinued(R eorder) torsemide (DEMADEX) 10 mg tablet Take 3 tablets (30 mg total) by mouth daily. 025 2024 Discontinued Active Problems Problem Noted Date Diagnosed Date Esophageal ulcer 01/04/2025 Acute on chronic respiratory failure with hypoxia and hypercapnia 12/04/2024 History of four vessel coronary artery bypass gr aft 11/28/2024 Pulmonary hypertension 11/28/2024 Nonrheumatic tricuspid valve regurgitation 11/28 Arthritis of left sacroiliac joint 07/07/2024 Stage 3a chronic kidney disease 07/07/2024 Closed wedge compression fra cture of T6 vertebra with routine healing 08/28/2023 Chronic respiratory failure with hypoxia and hyp ercapnia 07/25/2023 Major depressive disorder 05/28/2023 Panic disorder 05/28/2023 Chronic obstructive pulmonary disease 04/29/2023 Iron deficiency anemia 04/29/2023 Gastroesophageal reflux disease without esophagi tis 04/29/2023 Agoraphobia 10/21/2022 Anxiety 10/21/2022 Chipped tooth 10/21/2022 GERD (gastroesophageal reflux disease) Osteoarthritis 10/21/2022 Overview (10/21/2022): Apr 2009, swith stent placement Posttraumatic stress disorder 10/21/2022 Bipolar 2 disorder, major depressive episode Essential hypertension 09/26/2022 Hx of hyperlipidemia 09/26/2022 Former smoker 09/26/2022 Obstructive sleep apnea syndrome 07/31/2022 Depressive disorder 04/15/2022 Liver disease 04/15/2022 Visual impairment 04/15/2022 Overview (04/15/2022): glasses Chronic heart failure with preserved ejection fr action 02/27/2022 Cigarette nicotine dependence in remission 10/16 Hyperglycemia 08/14/2020 Low back pain 08/14/2020 Atherosclerosis of coronary artery without angin a pectoris 07/30/2020 Obesity (BMI 30-39.9) 01/30/2020 NSTEMI (non-ST elevated myocardial infarction) 0 01/09/2020 Resolved Problems Problem Noted Date Diagnosed Date Resolved Date Acute hypoxic on chronic hyp ercapnic respiratory failure 12/03/2024 12/04/2024 BMI 40.0-44.9, adult 06/01/2023 025 Cannabis use disorder, mild, abuse 05/28/2023 02/08/2025 COVID-19 04/15/2023 07/01/2023 Acute respiratory failure wi th hypoxia and hypercapnia 04/14/2023 05/18/2023 BiPAP (biphasic positive air way pressure) dependence 10/21/2022 11/06/2022 Panic disorder 04/15/2022 06/25/2023 Overview (04/15/2022): Apr 2009, swith stent placement Shortness of breath 11/05/2021 07/01/19 24 Hypotension due to hypovolemia 08/14/2020 11/05/2021 ASCVD (arteriosclerotic card iovascular disease) 01/30/2020 09/01/2022 Encounters Date Type Department Care Team Description 02/13/2025 Travel 02/10/2025 [facility]phone [facility] [address] [place] [address] Megan Talley CMA 02/09/2025 2:10 PM EDT - 02/09/2025 2:15 PM EDT Emergency [facility] - Emergency [address] [place] [address] Kunal Mims MD Abdominal pain, unspecified abdominal location (Primary Dx) Discharge Disposition: Home 02/09/2025 Travel 02/06/2025 12:00 PM EDT Office Visit [facility] Heart Failure [facility] [address] [place] [address] Risa Summers MD Chronic diastolic heart failure (CMS-HCC) (Primary Dx); Pulmonary hypertension ([facility]); Nonrheumatic tricuspid valve regurgitation 02/06/2025 [facility]phone [facility] [address] [place] [address] Tosin Reyes, [facility] 02/06/2025 Telephone [facility] Failure [facility] [address] [place] [address] Antoinette Sanchez CNA 02/03/2025 Telephone [facility] Failure [facility] [address] [place] [address] Antoinette Sanchez CNA 01/10/2025 Telephone [facility] Internal Medicine - Family Medicine [address] [place] [address] Megan Talley, [facility] 01/10/2025 Orders Only [facility] Internal Medicine - Family Medicine [address] [place] [address] Michael Steiner DO Stomatitis (Primary Dx) 01/09/2025 Results Follow-Up [facility] - Endoscopy [address] [place] [address] Michael Steiner DO Surgical Pathology 01/04/2025 10:00 AM EDT - 01/04/2025 11:00 AM EDT Surgery [facility] - Endoscopy [address] [place] [address] Michael Steiner DO ESOPHAGOGASTRODUODENOSCOPY DIAGNOSTIC [64090 (CPT )] 01/04/2025 8:57 AM EDT - 01/04/2025 10:46 AM EDT Hospital Encounter [facility] - Endoscopy [address] [place] [address] Michael Steiner DO Ulcer of esophagus without bleeding (Primary Dx); Hiatal hernia; Microcytic anemia Discharge Disposition: Home 01/04/2025 Travel 01/03/2025 3:50 PM EDT Support Visit [facility] - Pre Admit [address] [place] [address] 12/28/2024 Results Follow-Up [facility] - Heart Failure Clinic [address] [place] [address] Kacey Sims RN Basic Metabolic Panel 12/28/2024 Travel 12/28/2024 Refill [facility] Internal Medicine - Family Medicine [address] [place] [address] Michael Steiner DO Atherosclerotic heart disease of belkofski coronary artery with other forms of angina pectoris 12/27/2024 Travel 12/21/2024 7:28 AM EDT - 12/21/2024 11:59 PM EDT Hospital Encounter [facility] - Cardiovascular [address] [place] [address] Inez Cook, [employer] Chronic heart failure with preserved ejection fraction ([facility]); Pulmonary hypertension ([facility]); Nonrheumatic tricuspid valve regurgitation; Essential hypertension; Atherosclerosis of belkofski coronary artery of belkofski heart without angina pectoris; History of four vessel coronary artery bypass graft; NSTEMI (non-ST elevated myocardial infarction) ([facility]) Discharge Disposition: Home 12/21/2024 Telephone [facility] Internal Medicine - Family Medicine [address] [place] [address] Juan Diego Esquivel CMA 12/21/2024 Travel 12/20/2024 Hospital Encounter [facility] - Endoscopy [address] [place] [address] Michael Steiner DO Microcytic anemia (Primary Dx) 12/19/2024 2:40 PM EDT Support Visit [facility] - Pre Admit [address] [place] [address] 12/15/2024 12:30 PM EDT Office Visit [facility] Internal Medicine - Family Medicine [address] [place] [address] Michael Steiner DO Microcytic anemia (Primary Dx); Gastro-esophageal reflux disease without esophagitis; Stage 3a chronic kidney disease ([facility]); Spinal stenosis of lumbar region with neurogenic claudication 12/15/2024 Results Follow-Up [facility] Internal Medicine - Family Medicine [address] [place] [address] Michael Steiner DO Basic Metabolic Panel 12/15/2024 Telephone [facility] Internal Medicine Family [facility] [address] [place] [address] Sofya Coe CMA 12/14/2024 Travel 12/12/2024 Results Follow-Up [facility] - Heart Failure Clinic [address] [place] [address] Kacey Sims RN Basic Metabolic Panel 12/12/2024 Travel 12/08/2024 Telephone [facility] Internal [facility] [address] [place] [address] Liz Norman RN Transition Of Care 12/04/2024 6:44 AM EDT - 12/06/2024 11:45 AM EDT Hospital Encounter [facility] - Acute Care [address] [place] [address] Patrick Bal DO Yuhas, John L, DO Acute on chronic respiratory failure with hypoxia and hypercapnia ([facility]) (Primary Dx); Pneumonia due to infectious organism, unspecified laterality, unspecified part of lung; Peripheral polyneuropathy; Pulmonary hypertension (CMS-HCC); Chronic respiratory failure with hypoxia and hypercapnia (CMS-HCC); Stage 3a chronic kidney disease ([facility]) Discharge Disposition: Home Health 12/04/2024 Travel 12/03/2024 2:49 AM EDT - 12/03/2024 8:05 AM EDT Hospital Encounter [facility] - Acute Care [address] [place] [address] Cristhian Garrido MD Yuhas, John L, DO Acute hypoxic on chronic hypercapnic respiratory failure ([facility]) (Primary Dx); KUSUM (acute kidney injury); Pneumonia of right lung due to infectious organism, unspecified part of lung Discharge Disposition: Left Against Medical Advice or Discontinued Care 12/03/2024 Travel 11/30/2024 Results Follow-Up [facility] Heart Failure Clinic [address] [place] [address] Kacey Sims RN Basic Metabolic Panel, Echo complete W/O contrast 11/29/2024 Results Follow-Up [facility] Internal Medicine - Family Medicine [address] [place] [address] Michael Steiner, X-ray knee right 3 views 11/29/2024 Travel 11/28/2024 3:17 PM EDT - 11/28/2024 11:59 PM EDT Hospital Encounter [facility] - Radiology [address] [place] [address] Michael Steiner, DO Patellar tendinitis of right knee Discharge Disposition: Home 11/28/2024 2:00 PM EDT Office Visit [facility] - Heart Failure Clinic [address] [place] [address] Inez Cook, [employer] ENGINEER[employer] Chronic heart failure with preserved ejection fraction ([facility]) (Primary Dx); Pulmonary hypertension ([facility]); Nonrheumatic tricuspid valve regurgitation; Essential hypertension; Atherosclerosis of belkofski coronary artery of belkofski heart without angina pectoris; History of four vessel coronary artery bypass graft; NSTEMI (non-ST elevated myocardial infarction) ([facility]) 11/27/2024 Travel 11/25/2024 Travel 11/23/2024 Refill [facility] Internal Medicine - Family Medicine [address] [place] [address] Michael Steiner DO Peripheral polyneuropathy 11/21/2024 Telephone [facility] Internal Medicine - Family Medicine [address] [place] [address] Juan Diego Esquivel CMA from Last 3 Months Immunizations Immunization Administration Dates Next Due PPD Test 05/12/2023,04/30/2023 Tuberculin Skin Test; Unspecified Formulation ,04/30/2023 Family History Medical History Relation Name [...] e alcohol) last use 15 years ago [facility] [employer] Answer Date Recorded In the past 12 months has [employer], gas, oil, or water company threatened [...] often do you attend chur ch or muslim services? More than 4 times [...] Date Recorded Total Score 0 12/15/2024 [facility] [...] Recorded Do you need help finding a [facility] and/or a training program? No [...] a purpose and direction in my life. Marry gly Agree 07/25/2023 Comments No Sex and [...] 20 02/09/2025 1:04 PM EDT Oxygen Saturation 96% 02/09/2025 2:45 PM EDT Inhaled Oxygen Concentration - - Weight 107 kg (236 lb) 02/09/2025 1:04 PM EDT Height 175.3 cm (5' 9 ) 02/09/2025 1:04 PM EDT Body Mass Index 34.85 02/09/2025 1:04 PM EDT Plan of Treatment Upcoming Encounters Date Type Department Care Team (Late st Contact Info) Description 03/15/2025 1:30 PM EST Office Visit [facility] Internal Medicine - Family Medicine [address] [place] [address] Michael Steiner, [address] [place] [address] Health Maintenance Due Date Last Done Comments Diabetic Ophthalmology Exam 1962 Adult BMI Follow Up Plan 1980 Diabetic Foot Exam 1980 DTaP,Tdap and Td Vaccines (1 - Tdap) 1981 Pap Smear 02/18/2025 02/18/2022, 02/18/2022 Zoster (Shingles) Vaccine (1 of 2) 03/07/2025 Postponed from 2012 (Patient Refused) Statin Use: Cardiovascular 04/26/2025 04/26/2024 Statin Use: Diabetic 04/26/2025 04/26/2024 Depression Screening 12/15/2025 12/15/2024 Adult BMI Screening 02/09/2026 02/09/2025 Tobacco Screening 02/09/2026 02/09/2025 Influenza Vaccine Discontinued Goals Goal Patient Goal Type Associated Problems Recent Progress Patient-Stated? Author home General Yes Jimena Snider LSW Note: Evaluation of progress towards goal: feeling better Medical Devices Implanted Type Area Machines Technician Device Identifier Shelf Expiration Date Model / Serial / Lot Sj Xience Jocelin 2.75x28 Rx - [id number] Implanted:Qty : 1 on 01/09/2020 by Yefri Khan MD at [facility] Stent N/A: Arterial GENTILE VASCULAR [id number] 07/20/2020 [id number] / / [id number] Sj Xience Jocelin 2.75x8 Rx - [id number] Implanted:Qty : 1 on 01/09/2020 by Yefri Khan MD at [facility] Stent N/A: Arterial GENTILE VASCULAR [id number] 10/24/2022 [id number] / / [id number] Procedures Procedure Name Priority Date/Time Associated Diagnosis Comments CT ABDOMEN AND PELVIS W CONT STAT 3:32 PM EDT EXTRA TUBES BLUE TOP Routine 02/09/2025 2:24 PM EDT EXTRA TUBES Routine 02/09/2025 2:24 PM EDT LIPASE STAT 02/09/2025 2:24 PM EDT LIVER PANEL STAT 02/09/2025 2:24 PM EDT BASIC METABOLIC PANEL STAT 02/09/2025 2:24 PM EDT CBC WITH AUTO DIFFERENTIAL STAT 02/09 2:24 PM EDT SURGICAL PATHOLOGY Routine 01/04/2025 9:58 AM EDT TX ESOPHAGOGASTRODUODENOSCOP Y TRANSORAL DIAGNOSTIC 01/04/2025 9:43 AM EDT microcytic anemia BASIC METABOLIC PANEL Routine 12/28/2024 8:56 AM EDT Chronic heart failure with preserved ejection fraction (CMS-HCC) ECHO COMPLETE WO CONTRAST Routine 2024 8:11 AM EDT Chronic heart failure with preserved ejection fraction (CMS-HCC) Pulmonary hypertension (CMS-HCC) Nonrheumatic tricuspid valve regurgitation Essential hypertension Atherosclerosis of belk[place]ski coronary artery of belk[place]ski heart without angina pectoris History of four vessel coronary artery bypass graft NSTEMI (non-ST elevated myocardial infarction) (CMS-HCC) BASIC METABOLIC PANEL Routine 12/15/2024 1:10 PM EDT Stage 3a chronic kidney disease (CMS-HCC) ADMIT TO INPATIENT Routine 12/14/2024 12:55 PM EDT BASIC METABOLIC PANEL Routine 12/12/2024 8:32 AM EDT Chronic heart failure with preserved ejection fraction (CMS-HCC) Essential hypertension Pulmonary hypertension (CMS-HCC) Nonrheumatic tricuspid valve regurgitation Atherosclerosis of belkofski coronary artery of belkofski heart without angina pectoris History of four vessel coronary artery bypass graft BLOOD GAS, VENOUS Routine 12/06/2024 8:48 AM EDT EXTRA TUBES PST TOP Routine 12/06/2024 5:58 AM EDT EXTRA TUBES LAVENDER TOP Routine 025 5:58 AM EDT EXTRA TUBES BLUE TOP [...] 12/05/2024 11:23 AM EDT BIPAP/CPAP/AUTOPAP Routine 12/05/2024 11:12 AM EDT BLOOD GAS, VENOUS Routine 12/05/2024 9:21 AM EDT EXTRA TUBES BLUE TOP Routine 12/05/2024 4:28 AM EDT EXTRA TUBES Routine 12/05/2024 4:28 AM EDT PHOSPHORUS Routine 12/05/2024 4:28 AM EDT CBC WITH AUTO DIFFERENTIAL Routine 12/05 4:28 AM EDT BASIC METABOLIC PANEL Routine 12/05/2024 4:28 AM EDT BEDSIDE GLUCOSE Routine 12/04/2024 8:45 PM EDT BEDSIDE GLUCOSE Routine 12/04/2024 5:19 PM EDT BEDSIDE GLUCOSE Routine 12/04/2024 4:33 PM EDT BLOOD GAS, VENOUS Routine 12/04/2024 1:28 PM EDT BEDSIDE GLUCOSE Routine 12/04/2024 11:55 AM EDT PULSE OXIMETRY, SPOT Routine 12/04/2024 9:31 AM EDT TROP I, HIGH SENSITIVITY 1 HOUR STAT 12/04/2024 8:23 AM EDT PM ED CRITICAL CARE Routine 12/04/2024 8:15 AM EDT BLOOD GAS, VENOUS STAT 12/04/2024 7:16 AM EDT EXTRA TUBES BLUE TOP Routine 12/04/2024 7:15 AM EDT EXTRA TUBES Routine 12/04/2024 7:15 AM EDT PROCALCITONIN Add-On 12/04/2024 7:14 AM EDT PHOSPHORUS Add-On 12/04/2024 7:14 AM EDT TROPONIN I, HIGH SENSITIVITY 0 HOUR STAT 12/04/2024 7:14 AM EDT CBC WITH AUTO DIFFERENTIAL STAT 12/04 7:14 AM EDT B-TYPE NATRIURETIC PEPTIDE STAT 12/04 7:14 AM EDT LACTATE W/ REFLEX STAT 12/04/2024 7:14 AM EDT TROPONIN I, HIGH SENSITIVITY 0 HOUR STAT 12/04/2024 7:14 AM EDT COMPREHENSIVE METABOLIC PANEL STAT 7:14 AM EDT XR CHEST 1 VW STAT 12/04/2024 7:11 AM EDT BIPAP/CPAP/AUTOPAP Routine 12/04/2024 6:52 AM EDT ECG 12-LEAD STAT 12/04/2024 6:48 AM EDT PULSE OXIMETRY, SPOT Routine 12/03/2024 6:37 AM EDT TROP I, HIGH SENSITIVITY 1 HOUR STAT 12/03/2024 4:[address] CTA CHEST STAT 12/03/2024 4:02 AM EDT VENTILATION Routine 12/03/2024 3:55 AM EDT BLOOD CULTURE STAT 12/03/2024 3:47 AM EDT XR CHEST 1 VW STAT 12/03/2024 3:19 AM EDT BLOOD GAS, VENOUS STAT 12/03/2024 3:16 AM EDT EXTRA TUBES SST TOP Routine 12/03/2024 3:09 AM EDT EXTRA TUBES BLUE TOP Routine 12/03/2024 3:09 AM EDT EXTRA TUBES Routine 12/03/2024 3:09 AM EDT LACTATE W/ REFLEX STAT 12/03/2024 3:09 AM EDT B-TYPE NATRIURETIC PEPTIDE STAT 12/03 3:09 AM EDT CBC WITH AUTO DIFFERENTIAL STAT 12/03 3:09 AM EDT BLOOD CULTURE STAT 12/03/2024 3:09 AM EDT TROPONIN I, HIGH SENSITIVITY 0 HOUR STAT 12/03/2024 3:08 AM EDT TROPONIN I, HIGH SENSITIVITY 0 HOUR STAT 12/03/2024 3:08 AM EDT COMPREHENSIVE METABOLIC PANEL STAT 3:08 AM EDT ECG 12-LEAD STAT 12/03/2024 2:51 AM EDT BASIC METABOLIC PANEL Routine 11/29/2024 1:01 PM EDT Chronic heart failure with preserved ejection fraction (CMS-HCC) Pulmonary hypertension (CMS-HCC) Nonrheumatic tricuspid valve regurgitation Essential hypertension Atherosclerosis of belkofski coronary artery of belkofski heart without angina pectoris History of four vessel coronary artery bypass graft NSTEMI (non-ST elevated myocardial infarction) ([facility]) XR KNEE RT 3 VWS Routine 11/28/2024 3:37 PM EDT Patellar tendinitis of right knee PAP SMEAR Routine 02/18/2022 10:08 AM EDT Encounter for screening for malignant neoplasm of cervix Encounter for screening for human papillomavirus (HPV) from Last 3 Months or Most Recently Relevant to Health Maintenance Results * CT abdomen and pelvis with [...] Light Blue Top (02/09/2025 2:24 PM EDT) Only the most recent of5 resultswithin the time period is included. Pathologist [facility] Extra Tube Auto Resulted 02/09/2025 4:02 PM EDT [facility] Blood Venous blood / Unknown 02/09/2025 2:24 PM EDT 02/09/2025 2:35 PM EDT us Kunal Mims MD LAB BLOOD ORDERABLES Final Re sult [facility] [address] [place] [address], [place] * (ABNORMAL) CBC auto differential (02/09/2025 2:24 PM EDT) Only the most recent of4 resultswithin the time period is included. [facility] WBC 9.6 4 - 11 x10E9/L 02/09/2025 3:34 PM EDT [facility] RBC Count 5.30(H) 3.8 - 5.2 X10E12/L 02/09/2025 3:34 PM EDT [facility] Hemoglobin 10.6(L) 11.7 - 15.5 g/dL 02/09/2025 3:34 PM EDT [facility] Hematocrit 34.6(L) 35 - 47 % 02/09/2025 3:34 PM EDT [facility] MCV 65(L) 80 - 100 fL 02/09/2025 3:34 PM EDT [facility] MCH 20.0(L) 27 - 34 pg 02/09/2025 3:34 PM EDT [facility] MCHC 30.6(L) 32 - 36 g/dL 02/09/2025 3:34 PM EDT [facility] RDW 22.2(H) 11.5 - 15 % 02/09/2025 3:34 PM EDT [facility] Platelet Count 360 150 - 450 X10E9/L 02/09/2025 3:34 PM EDT [facility] MPV 8.4 7 - 12 fL 02/09/2025 3:34 PM EDT [facility] Neutrophils % 69.3 % 02/09/2025 3:34 PM EDT [facility] Comment:This is an appended report. These results have been appended to a previously preliminary verified report. Lymphocytes % 23.0 % 02/09/2025 3:34 PM EDT [facility] Comment:This is an appended report. These results have been appended to a previously preliminary verified report. Monocytes % 4.1 % 02/09/2025 3:34 PM EDT [facility] Comment:This is an appended report. These results have been appended to a previously preliminary verified report. Eosinophils % 1.7 % 02/09/2025 3:34 PM EDT [facility] Comment:This is an appended report. These results have been appended to a previously preliminary verified report. Basophils % 1.9 % 02/09/2025 3:34 PM EDT [facility] Comment:This is an appended report. These results have been appended to a previously preliminary verified report. Neutrophils Absolute (A) 6.6 1.5 - 6.6 10*3/uL 02/09/2025 3:34 PM EDT [facility] Comment:This is an appended report. These results have been appended to a previously preliminary verified report. Lymphocytes Absolute 2.2 1.0 - 3.5 10*3/uL 02/09/2025 3:34 PM EDT [facility] Comment:This is an appended report. These results have been appended to a previously preliminary verified report. Monocytes Absolute 0.4 0.0 - 0.9 10*3/uL 02/09/2025 3:34 PM EDT [facility] Comment:This is an appended report. These results have been appended to a previously preliminary verified report. Eosinophils Absolute 0.2 0.0 - 0.4 10*3/uL 02/09/2025 3:34 PM EDT [facility] Comment:This is an appended report. These results have been appended to a previously preliminary verified report. Basophils Absolute 0.2 0.0 - 0.2 10*3/uL 02/09/2025 3:34 PM EDT [facility] Comment:This is an appended report. These results have been appended to a previously preliminary verified report. Anisocytosis 2+ 02/09/2025 3:34 PM EDT [facility] Comment:This is an appended report. These results have been appended to a previously preliminary verified report. Elliptocytes 1+ 02/09/2025 3:34 PM EDT [facility] Comment:This is an appended report. These results have been appended to a previously preliminary verified report. Differential Type AUTOMATED DIFFERENTIAL 02/09/2025 3:34 PM EDT [facility] Comment:This is an appended report. These results have been appended to a previously preliminary verified report. Blood Venous blood / Unknown Venipuncture / Unknown 02/09/2025 2:24 PM EDT 02/09/2025 2:35 PM EDT Kunal Mims MD LAB BLOOD ORDERABLES Final Re sult Performing Organization Address [facility] Co de Phone Number [facility] [address] [place] [address], * (ABNORMAL) Lipase (02/09/2025 2:24 PM EDT) LIPASE 41(H) 17 - 40 U/L 02/09/2025 2:53 PM EDT [facility] Blood Venous blood / Unknown Venipuncture / Unknown 02/09/2025 2:24 PM EDT 02/09/2025 2:35 PM EDT us Kunal Mims MD LAB BLOOD ORDERABLES Final Re sult [facility] [address] [place] [address], [place] * Liver panel (02/09/2025 2:24 PM EDT) Pathologist [facility] TOTAL PROTEIN 7.9 6.0 - 8.0 g/dL 02/09/2025 2:59 PM EDT [facility] ALBUMIN 4.2 3.2 - 5.3 g/dL 02/09/2025 2:59 PM EDT [facility] BILIRUBIN,TOTAL 0.7 0.3 - 1.2 mg/dL 02/09/2025 2:59 PM EDT [facility] ALKALINE PHOSPHATASE 89 39 - 130 U/L 02/09/2025 2:59 PM EDT [facility] AST 20 <=41 U/L 02/09/2025 2:59 PM EDT [facility] ALT 17 <=31 U/L 02/09/2025 2:59 PM EDT [facility] BILIRUBIN,DIRECT 0.1 <=0.4 mg/dL 02/09/2025 2:59 PM EDT [facility] Blood Venous blood / Unknown Venipuncture / Unknown 02/09/2025 2:24 PM EDT 02/09/2025 2:35 PM EDT us Kunal Mims MD LAB BLOOD ORDERABLES Final Re sult [facility] [address] [place] [address], [place] * (ABNORMAL) Basic Metabolic Panel (02/09/2025 2:24 PM EDT) Only the most recent of7 resultswithin the time period is included. [facility] SODIUM 138 134 - 146 mmol/L 02/09/2025 2:59 PM EDT [facility] POTASSIUM 3.4(L) 3.5 - 5.0 mmol/L 02/09/2025 2:59 PM EDT [facility] CHLORIDE 97(L) 98 - 109 mmol/L 02/09/2025 2:59 PM EDT [facility] CARBON DIOXIDE 29 22 - 32 mmol/L 02/09/2025 2:59 PM EDT [facility] ANION GAP 12 5 - 15 mmol/L 02/09/2025 2:59 PM EDT [facility] BLOOD UREA NITROGEN 13 5 - 27 mg/dL 02/09/2025 2:59 PM EDT [facility] CREATININE 1.16(H) 0.40 - 1.00 mg/dL 02/09/2025 2:59 PM EDT [facility] Comment:METHOD TRACEABLE TO IDMS STANDARD GLUCOSE 127(H) 65 - 99 mg/dL 02/09/2025 2:59 PM EDT [facility] CALCIUM 9.2 8.5 - 10.5 mg/dL 02/09/2025 2:59 PM EDT [facility] EGFR Non-Race Dependent 53(L) >=60 ml/min/1.7 3sq.m 02/09/2025 2:59 PM EDT [facility] Comment: eGFR not reported due to non-numeric value for Creatinine. Reported eGFR is based on the CKD-EPI 2020 equation that does not use a race coefficient. Blood Venous blood / Unknown Venipuncture / Unknown 02/09/2025 2:24 PM EDT 02/09/2025 2:35 PM EDT us Kunal Mims MD LAB BLOOD ORDERABLES Final Re sult [facility] [address] [place] [address], * Surgical Pathology (01/04/2025 9:58 AM EDT) Case Report Surgical Pathology Report Case: [id number] Authorizing Provider: Michael Steiner DO Collected: 01/04/2025 0958 Ordering Location: [facility] Received: 01/04/[address] [place] [address] - Endoscopy Pathologist: Kelby Maher MD Specimens: 1) - Duodenum, Duodenum biopsies 2) - Antrum, Antrum biopsies 3) - Stomach, hiatal hernia biopsies 4) - Esophagus, distal esophagus ulceration biopsies 01/13/2025 9:25 AM [facility] Final Diagnosis 1. Duodenal biopsies: Normal duodenal mucosa. No duodenitis, celiac disease or neoplasm identified. 2. Gastric antral biopsy: Regeneration of gastric pits, consistent with a chemical or reactive gastritis. No inflammation, intestinal metaplasia, dysplasia or H. pylori organisms identified. 3. Hiatal hernia biopsies: Unremarkable gastric fundic mucosa. No intestinal metaplasia or dysplasia identified. 4. Distal esophageal ulcer biopsies: Focal fibrin and neutrophils, consistent with an ulcer. Strips of unremarkable squamous mucosa. No viral inclusions or neoplasm identified. PAS stain for fungus is pending. Immunostains for HSV and CMV are pending. No intestinal metaplasia or dysplasia identified. 01/13/2025 9:25 AM [facility] at 1334 EDT Addendum 4. PAS stain for fungus is negative. Immunostains for HSV and CMV are also negative. All controls are satisfactory. 01/13/2025 9:25 AM [facility] Addendum electronically signed by Kelby Maher MD on 01/13/2025 at 0925 EDT Gross Description 1. Received in formalin labeled COOL, #1: Duodenum biopsies are 2 garrido bits of soft tissue, each 0.3 cm in greatest dimension. Filtered and submitted in a single cassette. (1, ns, [id number], m7) MG 2. Received in formalin labeled COOL, #2: Antrum biopsies is a single garrido bit of soft tissue, 0.2 cm in greatest dimension. Filtered and submitted in a single cassette. (1, ns, [id number], m7) MG 3. Received in formalin labeled COOL, #3: Hiatal hernia biopsies are 2 garrido bits of soft tissue, ranging from 0.2-0.3 cm in greatest dimension. Filtered and submitted in a single cassette. (1, ns, [id number], m7) MG 4. Received in formalin labeled COOL, #4: Distal esophagus ulceration biopsies are 5 garrido delicate bits of soft tissue, ranging from 0.1-0.2 cm in greatest dimension. Filtered and submitted in a single cassette. (1, ns, [id number], m7) MG 01/13/2025 9:25 AM EDT [facility] Embedded Images 01/13/2025 9:25 AM EDT [facility] Tissue (Duodenum) 01/04/2025 9:58 AM EDT 01/04/2025 11:52 AM EDT Comment:Pre-op diagnosis: microcytic anemia Tissue specimen (specimen) Mastoid antrum structure / Unknown 01/04/2025 9:59 AM EDT 01/04/2025 11:52 AM EDT Comment:Pre-op diagnosis: microcytic anemia Tissue specimen (specimen) Stomach structure / Unknown 01/04/2025 10:03 AM EDT 01/04/2025 11:52 AM EDT Comment:Pre-op diagnosis: microcytic anemia Tissue specimen (specimen) Esophageal structure / Unknown 01/04/2025 10:04 AM EDT 01/04/2025 11:52 AM EDT Comment:Pre-op diagnosis: microcytic anemia Michael Steiner DO PATHOLOGY/CYTOLOGY ORDERABLES Ed ited Result - Final [facility] [address] [facility] [place] [address], [facility] [address] [place] [address], * Echo complete W/O contrast (12/21/2024 8:11 AM EDT) LVOT stroke volume 72.57 ml XCELERA LV Systolic Volume 57.00 mL XCELERA EF 56 % XCELERA FS 20 28 - 44 % XCELERA LV Diastolic Volume 129.00 mL XCELERA LVIDd 5.10 cm XCELERA LVIDs 4.10 cm XCELERA IVS 0.90 0.6 - 1.1 cm XCELERA PW 0.90 0.6 - 1.1 cm XCELERA LVOT diameter 2.00 cm XCELERA TDI 7.40 cm/s XCELERA MV TDI E' (medial) 8.38 cm/s XCELERA LA Volume Index 44.0 mL/m2 XCELERA E/A ratio 1.12 XCELERA E wave deceleration time 261.00 msec XCELERA MV Peak E Sam 120.00 cm/s XCELERA MV Peak A Sam 107.00 cm/s XCELERA LA size 4.80 cm XCELERA Aortic root 3.40 cm XCELERA LA volume 103.00 cm3 XCELERA RV diastolic dimension (basal) 40.0 mm XCELERA RVID d 3.8 cm XCELERA TAPSE 1.13 cm XCELERA AV peak sam 165.00 cm/s XCELERA LVOT peak sam 0.96 m/s XCELERA AV VTI 38.30 cm XCELERA LVOT peak VTI 23.10 cm XCELERA AV mean gradient 6.00 mmHg XCELERA AV peak gradient 10.89 mmHg XCELERA AV valve area 1.89 XCELERA Valve area - Index 0.8 XCELERA MV mean gradient 2.00 mmHg XCELERA MV peak gradient 5.95 mmHg XCELERA MV VTI 46.90 cm XCELERA MV valve area by continuity eq 1.55 XCELERA MV pressure 1/2 time 76.00 ms XCELERA MV valve area p 1/2 method 2.89 cm2 XCELERA TR Peak Sam 3.2 m/s XCELERA TR peak gradient 34.81 mmHg XCELERA PV mean gradient 4.00 mmHg XCELERA PV peak gradient 6.55 mmHg XCELERA LV ESV A2C 87.40 mL XCELERA LV ESV A4C 114.00 mL XCELERA Mitral Valve Max Velocity 1.22 cm/s XCELERA LV RWT 2D 35.29 XCELERA Echo EF Estimated 56 % XCELERA AV Velocity Ratio 0.60 XCELERA Left Ventricle Mass 163.77133 [id number] 1 g XCELERA Interventricular Septum Diastolic Thickness by 2D 9 cm XCELERA RV Peak Systolic Pressure 44 mmHg XCELERA Est. RA pressure 3 mmHg XCELERA RA area 21.8 cm2 XCELERA Anatomical Region Laterality Modality Chest N/A Ultrasound Narrative 12/21/2024 12:01 PM EDT Left Ventricle: Left ventricle appears normal in size. Systolic function is normal with an ejection fraction of 55-60%. The quantitative EF by 2D Segundo biplane is 56%. Left Atrium: Left atrium volume index is moderately increased. The left atrial volume index is 44.0 mL/m2. Right Atrium: Right atrium is mildly dilated. The right atrial area is 21.8 cm2. Aortic Valve: There is trace regurgitation. There is no evidence of aortic valve stenosis. Mitral Valve: There is [id number] regurgitation. There is no evidence of mitral valve stenosis. Tricuspid Valve: There is mild to moderate regurgitation. There is no evidence of tricuspid valve stenosis. There is mild to moderate pulmonary hypertension. Left Ventricle Left ventricle appears normal in size. Wall thickness is normal. Systolic function is normal with an ejection fraction of 55-60%. The quantitative EF by 2D Segundo biplane is 56%. No obvious regional wall motion abnormalities. Grade II diastolic dysfunction (pseudonormal) is present. Lateral E' is 7.40 cm/s. Medial E' is 8.38 cm/s. Right Ventricle Right ventricular size is borderline dilated. The right ventricular basal diameter is 40.0 mm. Abnormal tricuspid annular plane systolic excursion. Abnormal systolic excursion velocity by TDI (<9.5cm/s). Left Atrium Left atrium volume index is moderately increased. The left atrial volume index is 44.0 mL/m2. Right Atrium Right atrium is mildly dilated. The right atrial area is 21.8 cm2. IVC/SVC The right atrial pressure is estimated at 3 mmHg. There is normal collapse with deep inspiration. Mitral Valve Mitral valve structure is normal. There is [id number] regurgitation. There is no evidence of mitral valve stenosis. Tricuspid Valve Tricuspid valve appears to be normal. There is mild to moderate regurgitation. There is no evidence of tricuspid valve stenosis. The right ventricular systolic pressure is mild to moderately elevated. RVSP calculated at 44 mmHg. RVSP is based on RA pressure of 3 mmHg. There is mild to moderate pulmonary hypertension. Aortic Valve The aortic valve is trileaflet. The leaflets exhibit normal excursion and exhibit focal thickening. There is trace regurgitation. There is no evidence of aortic valve stenosis. Pulmonic Valve The pulmonic valve was not well visualized. There is trace regurgitation. There is no evidence of pulmonic valve stenosis. The peak gradient is 6.55 mmHg. The mean gradient is 4.00 mmHg. Ascending Aorta The aortic root is normal in size. Pericardium The pericardium has a fat pad. Study Details A complete echo was performed using complete 2D, color flow Doppler and spectral Doppler. Overall the study quality was adequate. The study was difficult due to patient's body habitus. BP 162/72 Wall Scoring Baseline Score Index: 1.00 The left ventricular wall motion is normal. us Inez Cook [employer]UR[employer] ENGINEER[employer]OT SUPERVISOR CV ECHO ORDERABLES Fin al Result * Admit to Adult inpatient (12/14/2024 12:55 PM EDT) us Cristhian Garrido MD ADT ORDERABLES Final Resul t * (ABNORMAL) Blood gas, venous (12/06/2024 8:48 AM EDT) Only the most recent of5 resultswithin the time period is included. Sample type VENOUS 12/06/2024 8:50 AM EDT [facility] pH, Venous 7.378 7.320 - 7.420 12/06/2024 8:50 AM EDT [facility] pCO2, Venous 63.6(H) 35.0 - 50.0 mmHg 12/06/2024 8:50 AM EDT [facility] pO2, Venous 47 30 - 50 mmHg 12/06/2024 8:50 AM EDT [facility] Base, Excess 10.0(H) 0.0 - 2.0 mmol/L 12/06/2024 8:50 AM EDT [facility] HCO3, Venous 37.4(H) 20.0 - 24.0 mmol/L 12/06/2024 8:50 AM EDT [facility] %O2 Saturation, Venous 80.0 % 12/06/2024 8:50 AM EDT [facility] Joe's test N/A 12/06/2024 8:50 AM EDT [facility] Sample site N/A 12/06/2024 8:50 AM EDT [facility] Source Of Oxygen NC 12/06/2024 8:50 AM EDT [facility] venous Venous blood / Unknown 12/06/2024 8:48 AM EDT 12/06/2024 8:50 AM EDT us Michael Perrys DO LAB BLOOD ORDERABLES Final Resul t Performing Organization Address City/[facility]/ZIP Co de Phone Number [address] [place] [address], [place] * Lavender Top (12/06/2024 5:58 AM EDT) Extra Tube Auto Resulted 12/06/2024 7:01 AM EDT [facility] Blood Venous blood / Unknown 12/06/2024 5:58 AM EDT 12/06/2024 6:09 AM EDT us Michael Perrys DO LAB BLOOD ORDERABLES Final Resul t Performing Organization Address [facility] Co de Phone Number [address] [place] [address], [place] * PST TOP (12/06/2024 5:58 AM EDT) Extra Tube Auto Resulted 12/06/2024 7:01 AM EDT [facility] Blood Venous blood / Unknown 12/06/2024 5:58 AM EDT 12/06/2024 6:22 AM EDT us Michael Perrys DO LAB BLOOD ORDERABLES Final Resul t Performing Organization Address City/[facility] Co de Phone Number [address] [place] [address], [place] * Phosphorus (12/06/2024 5:58 AM EDT) Only the most recent of3 resultswithin the time period is included. PHOSPHORUS 3.1 2.4 - 4.9 mg/dL 12/06/2024 7:25 AM EDT [facility] Blood Venous blood / Unknown Venipuncture / Unknown 12/06/2024 5:58 AM EDT 12/06/2024 6:06 AM EDT Michael Steiner DO LAB BLOOD ORDERABLES Final Resul t [facility] [address] [place] [address], [place] * Lower resp/sputum culture inc gram stain: Patient acquired (12/05/2024 10:28 PM EDT) CULTURE RESULTS CULTURE CANCELLED. SPECIMEN DOES NOT MEET CRITERIA FOR CULTURING. PLEASE REORDER AND RESUBMIT. 12/07/2024 2:36 PM EDT [facility] GRAM STAIN >25 Squamous Epithelial Cells/LPF with Mixed Bacterial Types Seen. Regarded as Saliva not Sputum 12/07/2024 2:36 PM EDT [facility] Sputum Bronchial structure / Unknown 12/05/2024 10:28 PM EDT 12/05/2024 10:33 PM EDT Michael Steiner DO MICROBIOLOGY - GENERAL ORDERABLE S Final Result Performing Organization Address City/[facility]/ZIP Co de Phone Number [facility] [address] [place] [address], [place] [phone] * (ABNORMAL) Bedside Glucose *Place/Obtain serum glucose if >500 per glucometer. (12/05/2024 6:04 PM EDT) Only the most recent of6 resultswithin the time period is included. Bedside Glucose (POC) 147(H) 65 - 99 mg/dL 12/05/2024 6:18 PM EDT [facility] arterial/capilla ry 12/05/2024 6:04 PM EDT 12/05/2024 6:18 PM EDT us Michael Steiner DO POINT OF CARE TEST ORDERABLES Fi nal Result Performing Organization Address [facility] Co de Phone Number [address] [place] [address], [place] * (ABNORMAL) Troponin I, High Sensitivity 1 Hour (12/04/2024 8:23 AM EDT) Only the most recent of2 resultswithin the time period is included. TROPONIN I, HIGH SENSITIVITY 17(H) <16 ng/L 12/04/2024 9:07 AM EDT [facility] Blood Venous blood / Unknown Venipuncture / Unknown 12/04/2024 8:23 AM EDT 12/04/2024 8:35 AM EDT Narrative [facility] - 12/04/2024 9:07 AM EDT Elevations of hs-Troponin may be due to causes other than myocardial ischemia. Recommend serial hs-Troponin testing be performed. For the initial evaluation and management of chest pain patients, refer to the algorithms linked below. Emergency Patient: [email or web address] [email or web address]: [email or web address] us Patrick Bal DO LAB BLOOD ORDERABLES Final R esult Performing Organization Address City/[facility]/ZIP Co de Phone Number [facility] [address] [place] [address], [place] * Critical Care (12/04/2024 8:15 AM [...] 17(H) <16 ng/L 12/04/2024 7:50 AM EDT [facility] Blood Venous blood / Unknown Venipuncture / Unknown 12/04/2024 7:14 AM EDT 12/04/2024 7:18 AM EDT us Patrick Bal DO LAB BLOOD ORDERABLES Final R esult [facility] [address] [place] [address], [place] * (ABNORMAL) Procalcitonin (12/04/2024 7:14 AM EDT) PROCALCITONIN 0.13(H) <0.05 ng/mL 12/04/2024 1:09 PM EDT [facility] Blood Venous blood / Unknown Venipuncture / Unknown 12/04/2024 7:14 AM EDT 12/04/2024 7:18 AM EDT Narrative [facility] - 12/04/2024 1:09 PM EDT <0.50 ng/mL - Low risk of severe sepsis and/or septic shock. <2.00 ng/mL - Recommend retesting within 6-24 hours. >2.00 ng/mL - High risk of sepsis and/or septic shock. us Michael Steiner DO LAB BLOOD ORDERABLES Final Resul t Performing Organization Address City/[facility] Co de Phone Number [address] [place] [address], [place] * Lactate w/ Reflex (12/04/2024 7:14 AM EDT) Only the most recent of2 resultswithin the time period is included. LACTATE W/REFLEX 1.0 0.4 - 2.0 mmol/L 12/04/2024 7:37 AM EDT [facility] Blood Venous blood / Unknown Venipuncture / Unknown 12/04/2024 7:14 AM EDT 12/04/2024 7:17 AM EDT Narrative [facility] - 12/04/2024 7:37 AM EDT Result did not trigger repeat Lactate, re-order if needed. us Patrick Bal DO LAB BLOOD ORDERABLES Final R esult Performing Organization Address [facility] de Phone Number [address] [place] [address], [place] * (ABNORMAL) B-type natriuretic peptide (12/04/2024 7:14 AM EDT) Only the most recent of2 resultswithin the time period is included. BNP 259(H) <=100 pg/mL 12/04/2024 7:46 AM EDT [facility] Blood Venous blood / Unknown Venipuncture / Unknown 12/04/2024 7:14 AM EDT 12/04/2024 7:18 AM EDT us Patrick Bal DO LAB BLOOD ORDERABLES Final R esult Performing Organization Address City/[facility] Co de Phone Number [address] [place] [address], * (ABNORMAL) Comprehensive metabolic panel (12/04/2024 7:14 AM EDT) Only the most recent of2 resultswithin the time period is included. SODIUM 141 134 - 146 mmol/L 12/04/2024 7:39 AM EDT [facility] POTASSIUM 4.2 3.5 - 5.0 mmol/L 12/04/2024 7:39 AM EDT [facility] CHLORIDE 96(L) 98 - 109 mmol/L 12/04/2024 7:39 AM EDT [facility] CARBON DIOXIDE 36(H) 22 - 32 mmol/L 12/04/2024 7:39 AM EDT [facility] ANION GAP 9 5 - 15 mmol/L 12/04/2024 7:39 AM EDT [facility] BLOOD UREA NITROGEN 21 5 - 27 mg/dL 12/04/2024 7:39 AM EDT [facility] CREATININE 1.45(H) 0.40 - 1.00 mg/dL 12/04/2024 7:39 AM EDT [facility] Comment:METHOD TRACEABLE TO IDMS STANDARD GLUCOSE 133(H) 65 - 99 mg/dL 12/04/2024 7:39 AM EDT [facility] CALCIUM 9.0 8.5 - 10.5 mg/dL 12/04/2024 7:39 AM EDT [facility] TOTAL PROTEIN 7.8 6.0 - 8.0 g/dL 12/04/2024 7:39 AM EDT [facility] ALBUMIN 3.7 3.2 - 5.3 g/dL 12/04/2024 7:39 AM EDT [facility] ALKALINE PHOSPHATASE 138(H) 39 - 130 U/L 12/04/2024 7:39 AM EDT [facility] AST 38 <=41 U/L 12/04/2024 7:39 AM EDT [facility] ALT 36(H) <=31 U/L 12/04/2024 7:39 AM EDT [facility] BILIRUBIN,TOTAL 0.3 0.3 - 1.2 mg/dL 12/04/2024 7:39 AM EDT [facility] EGFR Non-Race Dependent 41(L) >=60 ml/min/1.7 3sq.m 12/04/2024 7:39 AM EDT [facility] Comment: eGFR not reported due to non-numeric value for Creatinine. Reported eGFR is based on the CKD-EPI 2020 equation that does not use a race coefficient. Blood Venous blood / Unknown Venipuncture / Unknown 12/04/2024 7:14 AM EDT 12/04/2024 7:18 AM EDT us Patrick Bal DO LAB BLOOD ORDERABLES Final R esult [facility] [address] [place] [address], [place] * X-ray chest 1 view (12/04/2024 [...] Bal DO ECG ORDERABLES Final Result TRACEMASTERVUE * [...] Kai Finn MD on 12/03/2024 4:15 AM Cristhian Garrido MD IMG CT ORDERABLES Final Res ult * Blood culture (12/03/2024 3:47 AM EDT) Only the most recent of2 resultswithin the time period is included. CULTURE RESULTS NO GROWTH 5 DAYS 12/08/2024 10:01 AM EDT [facility] Blood Venous blood / Unknown Venipuncture / Unknown 12/03/2024 3:47 AM EDT 12/03/2024 3:49 AM EDT us Cristhian Garrido MD MICROBIOLOGY - GENERAL ORDHernando [facility] Final Result [facility] [address] [place] [address], [place] [phone] * SST TOP (12/03/2024 3:09 AM EDT) Extra Tube Auto Resulted 12/03/2024 5:01 AM EDT [facility] Blood Venous blood / Unknown 12/03/2024 3:09 AM EDT 12/03/2024 3:12 AM EDT us Cristhian Garrido MD LAB BLOOD ORDERABLES Final Result Performing Organization Address City[facility] Reading/ZIP Co de Phone Number [facility] [address] [place] [address], [place] * X-ray knee right 3 views [...] MD on 11/29/2024 2:28 PM Michael Steiner IMG DIAGNOSTIC IMAGING ORDERABLE S Final Result * Pap Smear (02/18/2022 10:08 AM EDT) 02/18/2022 10:0 8 AM EDT 02/18/2022 10:09 AM EDT Narrative COPATH - 02/28/2022 1:19 PM EDT [facility] [address] [place] [address] Gynecologic Cytology Consultation Patient Name:MONET RECINOS:1960 (Age: 61)Gender:FTaken:02/18/2022eported:02/28/2022hysician(s):Ashtyn Hackett M.D. ([phone])Copy To: Rec. #:[id number]: #[id number] Final Cytologic Interpretation ThinPrep Pap Test (Not otherwise specified): Satisfactory for evaluation. NEGATIVE FOR INTRAEPITHELIAL LESION OR MALIGNANCY. /02/28/2022 Interpretation performed [place] [address], License number: [id number]. Electronically Signed Out By RAZIA Ambrosio(ASCP) Date of Last Menstrual Period: (None Given) Other Clinical Conditions: Z12.4 Screening for malignant neoplasm of cervix Z11.51 Screening for HPV Source of Specimen ThinPrep Pap Test (Not otherwise specified) Thin Prep Pap ([employer]) Fee Code(s): G0145 us Ashtyn Hackett MD PATHOLOGY/CYTOLOGY ORDERABLES Fi nal Result COPATH from Last 3 Months or Most Recently Relevant to Health Maintenance Insurance [place]ICAID [place] [employer] MEDICARE Advance Directives Documents on File Type Date Recorded Patient Media Sales Executive Expl anation DNR Physician Order 12/03/2024 3:17 AM DNR Comfort Care 12/03/24 Durable Power of Mortgage Or Loan Underwriter 05/15/2023 8:14 AM Living Will 12/19/2021 11:54 AM LIVING [place] LL & DPOA Living Will 11/22/2021 1:59 PM Durable Power of Mortgage Or Loan Underwriter 11/22/2021 1:58 PM * DNR Comfort Care Arrest (DNR-CCA) [place] (Latest Code Status on File) Date Activated [...] 9:03 PM 07/27/2023 4:44 PM Care Teams Sales Clerk Food Relationship Specialty Start Date End Date Michael Steiner DO [address] [place] [address] PCP - General Internal Medicine 12/17/23
--- OUTSIDE RECORDS SUMMARY | 2025-02-13 11:19 | XMS_ITS | Encounter Summary ---
Author Organization [facility] [employer] [facility] tem Address [id number] [address] [place] [address] Care Team Providers Care Queen'S Counsel Name Role Phone Michael Steiner DO Primary Care Provider [phone] Encounter Details Date Type Department Care Team (Late st Contact Info) Description 12/15/2024 Results Follow-Up [facility] Internal Medicine - Family Medicine [address] [place] [address] Michael Steiner DO [address] [place] [address] Basic Metabolic Panel Social History Tobacco Use Types Packs/Day Years Used Date Smoking Tobacco: Former Cigarettes 1 40 0 09/1981 - 09/2021 Smokeless Tobacco: Never Comments:5-6 cigerettes a da y Alcohol Use Standard Drinks/Week Comments Not Currently 0 (1 standard drink = 0.6 oz pur e alcohol) last use 15 years ago [facility] Utilities Answer Date Recorded In the [...] Internal Medicine - Family Medicine [address] [place] [address] Michael Steiner DO [address] [place] [address] documented as of this encounter Goals Goal [...] documented as of this encounter Care Teams Queen'S Counsel Relationship Specialty Start Date End Date Michael Steiner DO [address] [place] [address] PCP - General Internal Medicine 12/17/23 documented as of this encounter
--- OUTSIDE RECORDS SUMMARY | 2025-02-13 11:19 | XMS_ITS | Encounter Summary ---
Author Organization [facility] [employer] [facility] tem Address [id number] [address] [place] [address] Care Team Providers Care Placement Specialist Name Role Phone Michael Steiner DO Primary Care Provider [phone] Encounter Details Date Type Department Care Team (Late st Contact Info) Description 12/12/2024 Results Follow-Up [facility] [address] [place] [phone] Kacey Sims RN Basic Metabolic Panel Social History Tobacco Use Types Packs/Day Years Used Date Smoking Tobacco: Former Cigarettes 1 40 0 09/1981 - 09/2021 Smokeless Tobacco: Never Comments:5-6 cigerettes a da y Alcohol Use Standard Drinks/Week Comments Not Currently 0 (1 standard drink = 0.6 oz pur e alcohol) last use 15 years ago [facility] Utilities Answer Date Recorded In the past 12 months has [employer], gas, oil, or water [employer] threatened to shut off services in your [...] you attend [facility] or buddhism services? More than 4 [...] Date Recorded Total Score 0 12/15/2024 [facility] [...] Internal Medicine - Family Medicine [address] [place] [address] Michael Steiner, [address] [place] [address] documented as of this encounter Goals Goal Patient Goal Type Associated Problems Recent Progress Patient-Stated? Author home General Yes Jimena Snider LSW Note: Evaluation of progress towards goal: feeling better documented as of this encounter Results * (ABNORMAL) Basic Metabolic Panel (12/28/2024 8:56 AM EDT) SODIUM 142 134 - 146 mmol/L 12/28/2024 2:23 PM EDT [facility] POTASSIUM 4.2 3.5 - 5.0 mmol/L 12/28/2024 2:23 PM EDT [facility] CHLORIDE 102 98 - 109 mmol/L 12/28/2024 2:23 PM EDT [facility] CARBON DIOXIDE 31 22 - 32 mmol/L 12/28/2024 2:23 PM EDT [facility] ANION GAP 9 5 - 15 mmol/L 12/28/2024 2:23 PM EDT [facility] BLOOD UREA NITROGEN 16 5 - 27 mg/dL 12/28/2024 2:23 PM EDT [facility] CREATININE 1.27(H) 0.40 - 1.00 mg/dL 12/28/2024 2:23 PM EDT [facility] Comment:METHOD TRACEABLE TO IDMS STANDARD GLUCOSE 91 65 - 99 mg/dL 12/28/2024 2:23 PM EDT [facility] CALCIUM 9.1 8.5 - 10.5 mg/dL 12/28/2024 2:23 PM EDT [facility] EGFR Non-Race Dependent 48(L) >=60 ml/min/1.7 3sq.m 12/28/2024 2:23 PM EDT [facility] Comment: Reported eGFR is based on the CKD-EPI 2020 equation that does not use a race coefficient. Blood Venous blood / Unknown Venipuncture / Unknown 12/28/2024 8:56 AM EDT 12/28/2024 8:56 AM EDT Cynthia Buchanan REFERENCE LIBRARIAN-MULTI PURPOSE MACHINE OPERATOR LAB BLOOD ORDERABLES Fi nal Result [facility] [address] [place] [address], documented in this encounter Visit Diagnoses Diagnosis Chronic heart failure with preserved ejection fraction (CMS-HCC)- Primary documented in this encounter Additional Health Concerns Assessment Noted Time PHQ-9 Depression Total Score: 0 11/08/19 25 2:16 PM EDT documented as of this encounter Care Teams Placement Specialist Relationship Specialty Start Date End Date Michael Steiner DO [address] [place] [address] PCP - General Internal Medicine 12/17/23 documented as of this encounter
--- OUTSIDE RECORDS SUMMARY | 2025-02-13 11:20 | XMS_ITS | Encounter Summary ---
Author Organization [employer] tem Address [id number] [address] [place] [address] Care Team Providers Care J2Ee Java Developer Name Role Phone Michael Steiner DO Primary Care Provider [phone] Encounter Details Date Type Department Care Team (Late st Contact Info) Description 02/06/2021 [facility] [address] [place] [id number] Ching Gay RN Social History Tobacco Use [...] How often do you attend advent or moravian serv ices? Never 01/09/2020 Do [...] Recorded Do you need help finding a [employer] career center and/or a training program? No [...] Internal Medicine - Family Medicine [address] [place] [address] Michael Steiner, [address] [place] [address] documented as of this encounter Visit Diagnoses [...] 07/25/2023 7:25 PM EDT COVID-19 Rule-Out 12/17/2023 12/17/202312/1612/17/2023 1:50 PM EDT Assessment Noted Time PHQ-9 Depression Total Score: 0 08/07/19 21 6:36 PM EDT documented as of this encounter Care Teams J2Ee Java Developer Relationship Specialty Start Date End Date Michael Steiner DO [address] [place] [address] PCP - General Internal Medicine 12/17/23 documented as of this encounter
--- OUTSIDE RECORDS SUMMARY | 2025-02-13 11:20 | XMS_ITS | Encounter Summary ---
Author Organization [employer] tem Address [id number] [address] [place] [address] Care Team Providers Care Commercial Real Estate Appraiser Name Role Phone Michael Steiner DO Primary Care Provider [phone] Encounter Details Date Type Department Care Team (Late st Contact Info) Description 11/21/2024 [facility]phone [facility] Medicine [address] [address] Juan Diego Esquivel CMA Social History Tobacco [...] Recorded In the past 12 months has [employer], gas, oil, or water [email or web address] threatened to shut off services in your [...] How often do you attend chur or taoism services? More than 4 times [...] Recorded Total Score 0 11/07/2024 [facility] - Occupational [...] Esquivel CMA - 11/21/2024 11:16 AM EDT [facility] [phone]. Called and states the Certificate of medical necessity needs to have type of incontinence and the length of need and the last time she seen you on this paper. Re Submit fax to [phone]. * Telephone Encounter - Michael Steiner DO - 11/21/2024 11:16 AM EDT Message noted. I will address at her next visit documented in this encounter Plan of Treatment Upcoming Encounters Date Type Department Care Team (Late st Contact Info) Description 03/15/2025 1:30 PM EST Office Visit [facility] Internal Medicine - Family Medicine [address] [place] [address] Michael Steiner DO [address] [facility] [address] documented as of this encounter Visit Diagnoses Not on filedocumented in this encounter Additional Health Concerns Assessment Noted Time PHQ-9 Depression Total Score: 0 11/08/19 25 2:16 PM EDT documented as of this encounter Care Teams Commercial Real Estate Appraiser Relationship Specialty Start Date End Date Michael Steiner DO [address] [place] [address] PCP - General Internal Medicine 12/17/23 documented as of this encounter
--- OUTSIDE RECORDS SUMMARY | 2025-02-13 11:20 | XMS_ITS | Encounter Summary ---
Author Organization [facility] [employer] [facility] tem Address [id number] [place] [address] Care Team Providers Care Account Services Coordinator Name Role Phone Michael Steiner DO Primary Care Provider [phone] Encounter Details Date Type Department Care Team (Late st Contact Info) Description 11/29/2024 Results Follow-Up [facility] Internal Medicine - Family Medicine [address] [place] [address] Michael Steiner DO [address] [place] [address] X-ray knee right 3 views Social History [...] Recorded In the past 12 months has [employer], gas, oil, or water company threatened to [...] Answer Date Recorded Total Score 0 12/15/2024 [facility] [...] PM EST documented as of this encounter Functional Status documented as of this encounter Plan of Treatment Upcoming Encounters Date Type Department Care Team (Late st Contact Info) Description 03/15/2025 1:30 PM EST Office Visit [facility] Internal Medicine - Family Medicine [address] [place] [address] Michael Steiner DO [address] [place] [address] documented as of this encounter Goals Goal [...] as of this encounter Care Teams Account Services Coordinator Relationship Specialty Start Date End Date Michael Steiner DO [address] [place] [address] PCP - General Internal Medicine 12/17/23 documented as of this encounter
--- OUTSIDE RECORDS SUMMARY | 2025-02-13 11:20 | XMS_ITS | Encounter Summary ---
Author Organization [employer] Address [id number] [address] [place] [address] Care Team Providers Care Bricklayer Supervisor Name Role Phone Michael Steiner DO Primary Care Provider [phone] Reason for Visit * Reason Onset Date Comments PT Discharge 01/10/2020 Encounter Details Date Type Department Care Team (Late st Contact Info) Description 01/10/2020 [facility] [address] [place] [address] Jamie Rodriguez DO [address] [place] [address], [address] [place], [place] [id number] PT Discharge Social History Tobacco Use Types [...] per [facility]. Pt dcd from [facility] s/p CATH. Needs 7-10 day f/u. Orders to scheduling. car documented in this encounter Plan of Treatment Upcoming Encounters Date Type Department Care Team (Late st Contact Info) Description 03/15/2025 1:30 PM EST Office Visit [facility] Internal Medicine - Family Medicine [address] [place] [address] Michael Steiner DO [address] [place] [address] documented as of this encounter Visit Diagnoses [...] documented as of this encounter Care Teams Bricklayer Supervisor Relationship Specialty Start Date End Date Michael Steiner DO [address] [place] [address] PCP - General Internal Medicine 12/17/23 documented as of this encounter
[2025-02-13 11:52] VITALS: BP 113/55; BP 117/57; PULSE 77; O2SAT 95; O2SAT 99
[2025-02-13] MEDS: BUPIVACAINE HCL 0.25% PF 25 MG/10 ML VIAL INJ (11:53)
[2025-02-13] MEDS: 0.9 % SODIUM CHLORIDE 10 ML SYRINGE - SALINE FLUSH INJ (11:53)
[2025-02-13] MEDS: IOHEXOL 240 MG/ML - 10 ML VIAL INJ (11:54)
[2025-02-13] MEDS: LIDOCAINE HCL 2% 400 MG/20 ML MDV 3 ML INJ (11:54)
[2025-02-13] MEDS: METHYLPREDNISOLONE ACETATE 80 MG/ML VIAL INJ (11:54)
--- NOTE | 2025-02-13 11:56 | W.PM.PROCNOT ---
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 Informed consent was obtained and placed on the chart.? Patient was brought to the medical procedure unit and placed in the prone position where a timeout was completed verifying the correct patient, procedure site, position, and planned special equipment using sterile aseptic technique.? Under direct fluoroscopic visualization a 25-gauge Quincke tipped spinal needle was advanced at level left L5-S1 to the designated neural foramen where contrast dye was injected to show adequate spread.? There was no evidence of vascular or adverse uptake.? Epidural spread was appreciated.? The above-mentioned injectate was then placed in a 1.5 mL aliquot preceded by negative aspiration.? The needle was removed. The same procedure, at the same level, was completed on the opposite side. ? Patient was taken to the postprocedural recovery area and monitored for an appropriate length of time before found suitable for discharge in the accompaniment of a responsible adult. Anesthesia: Local Surgeon: Ligia Root Pathology: none sent Condition: stable Disposition: no change
== END 2025-02-13 12:13 | disposition home or self-care (01) ==
PROVIDERS: PCP Internal Medicine; Visit Provider Anesthesiology
DX: M48.062 Spinal stenosis, lumbar region with neurogenic claudication (principal); M54.50 Low back pain, unspecified
CPT/HCPCS: 64483; J0665; J1010; Q9966

== ENCOUNTER 2025-02-23 10:41 | Outpatient (OUT) | payer MEDICARE, MEDICAID, SELFPAY ==
--- OUTSIDE RECORDS SUMMARY | 2025-02-09 14:10 | XMS_ITS | Encounter Summary ---
Author Organization [facility] tem Address [id number] [place] [address] Care Team Providers Care History Department Chair Name Role Phone Obdulia Michael Janae CABRERA Primary Care Provider [phone] Reason for Visit * ReasonCommentsAbdominal Pain Encounter Details DateTypeDepartmentCare Team (Latest Contact Info)Kqubzbtdvdz61/16/2025 2:10 PM EDT - 02/09/2025 2:15 PM EDTEmergency [facility] [address] [place] [phone] Kunal Mims MD [address] [place] [address] Abdominal pain, unspecified abdominal location (Primary Dx) Discharge Disposition: Home Social History Tobacco UseTypesPacks/DayYears UsedDateSmoking Tobacco: DjtdkhFhrhsvxbzv066 09/1981 - mokeless Tobacco: Never Comments:5-6 cigerettes a da y Alcohol UseStandard Drinks/WeekCommentsNot Currently0 (1 standard drink = 0.6 oz pure alcohol)last use 15 years agoAH UtilitiesAnswerDate RecordedIn the past 12 months has the electric, gas, oil, or water company threatened to shut off services in your home?No12/04/2024Social Connection and Isolation PanelAnswer Date RecordedIn a typical week, how many times do you talk on the phone with family, friends, or neighbors?Three times a week07/25/2023How often do you get together with friends or relatives?Three times a week07/25/2023How often do you attend pentecostalism or taoism services?More than 4 times per year07/25/2023o you belong to any clubs or organizations such as pentecostalism groups, unions, fraternal or athletic groups, or school groups?No07/25/2023How often do you attend meetings of the clubs or organizations you belong to?Never07/25/2023re you , , , , never , or living with a partner? 07/25/2023UDIT-CAnswerDate RecordedQ1: How often do you have a drink containing alcohol?Never07/25/2023Q2: How many drinks containing alcohol do you have on a typical day when you are drinking?Patient does not drink07/25/2023Q3: How often do you have six or more drinks on one occasion?Never07/25/2023Overall Financial Resource Strain (CARDIA)AnswerDate RecordedHow hard is it for you to pay for the very basics like food, housing, medical care, and heating?Not very hard 12/04/2024PHQ-2AnswerDate RecordedTotal Kdncn148Finun[facility] of [facility] - Occupational Stress QuestionnaireAnswerDate RecordedDo you feel stress - tense, restless, nervous, or anxious, or unable to sleep at night because yourmind is troubled all the time - these days?Only a vijswx0507/25/2023 Exercise Vital SignAnswerDate RecordedOn average, how many days per week do you engage in moderate to strenuous exercise (like a brisk walk)?0 days07/25/2023On average, how many minutes do you engage in exercise at this level?0 min 07/25/2023RAPARE - TransportationAnswerDate RecordedIn the past 12 months, has lack of transportation kept you from medical appointments or from getting medications?No12/04/2024In the past 12 months, has lack of transportation kept you from meetings, work, or from getting things needed for daily living?No 12/04/2024Housing InstabilityAnswerDate RecordedAre you worried or concerned that in the next two months you may not have stable housing that you own, rent or stay in as a part of a household?No12/04/2024hildcareAnswerDate RecordedDo problems getting child adolescent care make 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 to work or study?No 12/04/2024EmploymentAnswerDate RecordedDo you need help finding a local career center and/or a training program?No12/04/2024Hunger ScreeningAnswerDate Recorded Within the past 12 months we worried whether our food would run out before we got money to buy more.Never True02/09/2025Within the past 12 months the food we bought just didn't last and we didn't have money to get more.Never True 02/09/2025Purpose - LifeAnswerDate RecordedI have a purpose and direction in my life.Strongly Agree07/25/2023CommentsNoSex and Gender InformationValue Date RecordedSex Assigned at ZwvzwXqsqbk69/10/2021 8:51 AM EDTLegal SexFemale 02/16/2017 2:26 PM EDTGender XjzwueslNlumvc42/10/2021 8:51 AM EDTSexual RzpexdlhbxwAhamuxvw53/02/2023 8:29 PM ESTdocumented as of this encounter Last Filed Vital Signs Vital SignReadingTime TakenCommentsBlood Ujxwzwmx136/8210 1:04 PM EDT Jchkk972002/09/2025 1:04 PM PMKFzudvmmtprl51.6 ??C (97.8 ??F)02/09/2025 1:04 PM EDTRespiratory Qurp9530 1:04 PM EDTOxygen Pgqvqgqkii25%02/09/2025 1:04 PM EDTInhaled Oxygen Concentration--Ncntft086 kg (236 lb)02/09/2025 1:04 PM EDT Nvgsre431.3 cm (5' 9 )02/09/2025 1:04 PM EDTBody Mass Index34.8502/09/2025 1:04 PM EDTdocumented in this encounter Discharge Instructions * Attachments The following attachments cannot be sent through Care Everywhere. * Abdominal Pain? Adult ED ([place]) * Appendicitis in adults ([place]) documented in this encounter Medications at Time of Discharge MedicationSigDispense QuantityRefillsLast FilledStart DateEnd Date acetaminophen (TYLENOL) 325 mg tablet Take 2 tablets (650 mg total) by mouth every 4 (four) hours as needed for pain or headaches. 30 tablet 07/27/2023 albuterol (ACCUNEB) 0.63 mg/3 mL nebulizer solution Inhale 3 mL (0.63 mg total) by nebulization every 6 (six) hours as needed for wheezing. albuterol (PROVENTIL HFA;VENTOLIN HFA) 90 mcg/actuation inhaler ARIPiprazole (ABILIFY) 15 mg tablet Take 1 tablet (15 mg total) by mouth nightly.05/13/2023 atorvastatin (LIPITOR) 80 mg tablet Indications:Atherosclerosis of tribal coronary artery of tribal heart without angina pectoris,Hx of hyperlipidemiaTake 1 tablet (80 mg total) by mouth in the morning. 90 tablet ppwcdnpbqw-pjhzobgp-sijkltmozd (BREZTRI AEROSPHERE) 160-9-4.8 mcg/actuation HFA aerosol inhaler Indications:Chronic obstructive pulmonary disease, unspecified COPD type ([facility])Inhale 2 puffs in the morning and 2 puffs before bedtime. 10.7 g cholecalciferol, vitamin D3, 5,000 units tablet Take 2 tablets (10,000 Units total) by mouth in the morning. clonazePAM (KlonoPIN) 0.5 mg tablet Take 1 tablet (0.5 mg total) by mouth in the morning and 1 tablet (0.5 mg total) before bedtime.09/14/2023 cyanocobalamin 1000 MCG tablet Take 1 tablet (1,000 mcg total) by mouth in the morning. diclofenac-miSOPROStol (ARTHROTEC 50) 50-200 mg-mcg EC tablet Take 1 tablet by mouth in the morning and 1 tablet before bedtime. 60 tablet gscguh-rkdwzovnp-gzj,al-simeth (FIRST-MOUTHWASH BLM) 77-789-680-40 mg/30mL mouthwash Indications:StomatitisTake 5 mL by mouth 4 (four) times a day as needed for mucositis or mouth/gum irritation. 119 mL doxepin (SINEquan) 75 mg capsule empagliflozin (JARDIANCE) 10 mg tablet tablet Indications:Chronic heart failure with preserved ejection fraction (CMS-HCC), Atherosclerosis of tribal coronary artery of tribal heart without angina pectorisTake 1 tablet (10 mg total) by mouth in the morning. TAKE 1 TABLET (10 MG TOTAL) BY MOUTH IN THE MORNING. 90 tablet ezetimibe (ZETIA) 10 mg tablet Indications:Atherosclerotic heart disease of tribal coronary artery with other forms of angina pectorisTAKE 1 TABLET (10 MG TOTAL) BY MOUTH IN THE MORNING 90 tablet guaiFENesin (MUCINEX) 600 mg tablet extended release 12hr Take 1 tablet (600 mg total) by mouth every 12 (twelve) hours. 14 tablet 12/06/2024 hydrOXYzine (ATARAX) 25 mg tablet Take 1 tablet (25 mg total) by mouth 2 (two) times a day as needed for anxiety. 12/06/2024 lamoTRIgine (LaMICtal) 150 mg tablet Take 1 tablet (150 mg total) by mouth in the morning.10/07/2023 metoprolol succinate XL (TOPROL XL) 25 mg 24 hr tablet Indications:Chronic heart failure with preserved ejection fraction (CMS-HCC), Pulmonary hypertension ([facility]),Nonrheumatic tricuspid valve regurgitation, Essential hypertension,Atherosclerosis of tribal coronary artery of tribal heart without angina pectoris,History of four vessel coronary artery bypass graft, NSTEMI (non-ST elevated myocardial infarction) ([facility])Take 1 tablet (25 mg total) by mouth nightly. 30 tablet oxygen Inhale 2 L/min continuously. pantoprazole (PROTONIX) 40 mg EC tablet Indications:Gastro-esophageal reflux disease without esophagitisTake 1 tablet (40 mg total) by mouth every morning before breakfast. 90 tablet 11/07/2024 pregabalin (LYRICA) 100 mg capsule Indications:Peripheral polyneuropathyTake 1 capsule (100 mg total) by mouth before bedtime.12/06/2024 propranoloL (INDERAL) 40 mg tablet Take 1 tablet (40 mg total) by mouth in the morning and at bedtime. TAKE 1 TABLET (40 MG TOTAL) BY MOUTH IN THE MORNING AND BEFORE OSPZPLH1411/08/2024 spironolactone (ALDACTONE) 25 mg tablet Indications:Chronic diastolic heart failure (CMS-HCC)Take 1 tablet (25 mg total) by mouth in the morning. 90 tablet TRINTELLIX 10 mg tablet Take 1 tablet (10 mg total) by mouth in the morning.10/03/2024 valsartan (DIOVAN) 40 mg tablet Indications:Chronic diastolic heart failure (CMS-HCC),Pulmonary hypertension (CMS-HCC)Take 1 tablet (40 mg total) by mouth in the morning. 30 tablet torsemide (DEMADEX) 20 mg tablet Indications:Chronic diastolic heart failure (CMS-HCC)Take 2 tablets (40 mg total) by mouth daily. 60 tablet documented as of this encounter ED Notes * Kunal Mims MD - 02/09/2025 2:18 PM EDT Images from the original note were not included. [facility] - EMERGENCY Pt Name: Monet Recinos [...] nausea and diarrhea. History provided by: Patient deaf interpreter used: No Past Medical History: Past Medical History: Diagnosis Date Agoraphobia Angina at rest Anxiety BiPAP (biphasic positive airway pressure) dependence Bipolar disorder ([facility]) Breast injury CHF (congestive heart failure) ([facility]) Chipped tooth Chronic kidney disease COPD (chronic obstructive pulmonary disease) ([facility]) Coronary artery disease Dementia ([facility]) Depression Diarrhea frequent bouts /involuntary Dizziness Fracture, vertebral, lumbar closed ([facility]) GERD (gastroesophageal reflux disease) Headache History of coronary artery bypass graft 08/14/2020 Liver disease Low back pain Lump or mass in breast Memory loss Myocardial infarction ([facility]) Apr 2009, swith stent placement [...] 01/09/2020 Performed by Yefri Khan MD at [facility] Cardiac catheterization-LV Cors N/A 08/06/2020 Performed by Hazel Painting MD at [facility] SECTION CHOLECYSTECTOMY COLONOSCOPY N/A 04/03/2017 Performed by Jose Beaver MD at [facility] Coronary angiogram and left ventricular gram/pressure N/A 01/09/2020 Performed by Yefri Khan MD at [facility] CORONARY ANGIOPLASTY WITH STENT PLACEMENT CORONARY ARTERY BYPASS GRAFT X4/ THOMPSON/ SVG X3 / RIGHT UPPER LEG OPEN VEIN HARVEST/ LEFT UPPER LEG OPEN VEING HARVEST /GINETTE N/A 08/13/2020 Performed by Leroy Meng MD at [facility] Drug eluting stent left anterior descending N/A 01/09/2020 Performed by Yefri Khan MD at [facility] ESOPHAGOGASTRODUODENOSCOPY DIAGNOSTIC N/A 01/04/2025 Performed by Michael Steiner DO at [facility] EXCISION SEROMA LOWER EXTREMITY Left 10/07/2022 Performed by Victor Hugo Vincent DO at [facility] Intravascular ultrasound coronary N/A 08/06/2020 Performed by Hazel Painting MD at [facility] Intravascular ultrasound coronary N/A 01/09/2020 Performed by Yefri Khan MD at [facility] NOTCHARGED/Thrombolysis arterial initial treatment N/A 01/09/2020 Performed by Yefri Khan MD at [facility] TONSILLECTOMY Family History: [...] min Stress: No Stress Concern Present (07/25/2023) [place] [facility] [facility] - Occupational Stress Questionnaire Feeling of Stress : Only a little Recent Concern: Stress - Stress Concern Present (07/25/2023) [place] [facility] [employer] [facility] - Occupational Stress Questionnaire Feeling of Stress : Very much Social Connections: Moderately Isolated (07/25/2023) Social Connection and Isolation Panel Frequency of Communication with Friends and Family: Three times a week Frequency of Social Gatherings with Friends and Family: Three times a week Attends Rastafari Services: More than 4 times per year [...] Strong 02/09/25 1420 Kunal Mims MD 02/09/25 1552 * Cara Cui RN - 02/09/2025 1:02 PM EDT PT presents to the ED for evaluation of abd pain. Pain began this morning and has been progressively worsening. PT reports pain is from the R rib to the R groin. No injury/trauma. PT is on 4 L reports she is suppose to be on 2 L. documented in this encounter Plan of Treatment DateTypeDepartmentCare Team (Latest Contact Info)Lxkgnhjpfvb13/19/2025 1:30 PM ESTOffice Visit [facility] [address] [place] [phone] Michael Steiner, [address] [place] [address] documented as of this encounter Goals GoalPatient Goal TypeAssociated ProblemsRecent ProgressPatient-Stated?Author home Jimena Wilson LSW Note: Evaluation of progress towards goal: feeling better documented as of this encounter Procedures Procedure NamePriorityDate/TimeAssociated DiagnosisCommentsCT ABDOMEN AND PELVIS W ZVKUJDXH74/16/2025 3:32 PM EDT EXTRA TUBES BLUE ARZMmyhwok04/16/2025 2:24 PM EDT EXTRA HBESIZflygjm05/16/2025 2:24 PM EDT CBC WITH AUTO NOKVSTFONGELXLIC38/16/2025 2:24 PM EDT TOEHDDEVVC37/16/2025 2:24 PM EDT LIVER XGCWVFHGD88/16/2025 2:24 PM EDT BASIC METABOLIC MAVVIRUYE22/16/2025 2:24 PM EDT documented in this encounter Results * CT abdomen and pelvis with contrast (02/09/2025 3:32 PM EDT)Anatomical Region LateralityModalityBody, Abdomen, Body CoveraN/AComputed TomographySpecimen (Source)Anatomical Location / LateralityCollection Method / VolumeCollection TimeReceived Time02/09/2025 3:36 PM EDT Narrative 02/09/2025 3:45 PM [...] surgically absent. The spleen is normal. The pancreasis unremarkable. The right kidney is normal. The left kidney is normal. The adrenals are unremarkable. There are no dilated loops of bowel or evidence for pneumatosis or free air. The appendix is identified in the anterior abdomen. There are no associated inflammatory changes. However, there ismild dilatation of the appendix measuring up to 1 cm. Overall findings are equivocal for early/mildacute appendicitis and clinical correlation is required. There is no significant free fluid. There are calcifications throughout a normal diameter abdominal aorta and iliac arteries. IMPRESSION: 1. Anterior appendix. There are no associated inflammatory changes. The appendix is however dilatedmeasuring up to 1 cm. Overall findings are [...] axial reconstructions following the uneventful administration of nonionicintravenous contrast. [...] Cesario Cooley MD on 02/09/2025 3:45 PM Authorizing ProviderResult TypeResult StatusPatriclow Mims MDG CT ORDERABLES Final Result * Light Blue Top (02/09/2025 2:24 PM EDT)ComponentValueRef RangeTest Method Analysis TimePerformed AtPathologist SignatureExtra TubeAuto Resulted 02/09/2025 4:02 PM EDTPROMEDTHOMPSON MEMORIAL MED[facility] CENTER HOSPITALpecimen (Source) Anatomical Location / LateralityCollection Method / VolumeCollection Time Received TimeBloodVenous blood / Weublla64/ 2:24 PM EDT1 2:35 PM EDT Narrative Authorizing ProviderResult TypeResult StatusPatriclwo Mims MDLAB BLOOD ORDERABLESFinal ResultPerforming OrganizationAddressCity/State/ZIP CodePhone Number [address] [place] [address], [place] * (ABNORMAL) Lipase (02/09/2025 2:24 PM EDT)ComponentValueRef RangeTest Method Analysis TimePerformed AtPathologist DewxrgorgHMWQCY97(H)17 - 40 U/L1 2:53 PM EDTPKETTERING MEMORIAL HOSPITALpecimen (Source)Anatomical Location / LateralityCollection Method / VolumeCollection TimeReceived Time BloodVenous blood / UnknownVenipuncture / Orqyluc4702/09/2025 2:24 PM EDT 02/09/2025 2:35 PM EDT Narrative Authorizing ProviderResult TypeResult StatusPatriclow Mims MDLAB BLOOD ORDERABLESFinal ResultPerforming OrganizationAddressty/State/ZIP CodePhone Number [address] [place] [address], [place] * Liver panel (02/09/2025 2:24 PM EDT)ComponentValueRef RangeTest MethodAnalysis TimePerformed AtPathologist SignatureTOTAL PROTEIN7.96.0 - 8.0 g/dL02/09/2025 2:59 PM EDTPKETTERING HEALTH HAMILTONALBUMIN4.23.2 - 5.3 g/dL 02/09/2025 2:59 PM EDTPKETTERING HEALTH HAMILTONBILIRUBIN,TOTAL0.70.3 - 1.2 mg/dL02/09/2025 2:59 PM EDTPKETTERING HEALTH HAMILTONALKALINE UEFPMLNTEIT0569 - 130 U/L1 2:59 PM EDTPKETTERING HEALTH HAMILTONAST20<=41 U/L1 2:59 PM EDTPKETTERING HEALTH HAMILTON ALT17<=31 U/L1 2:59 PM EDOHIOHEALTH BILIRUBIN,DIRECT0.1<=0.4 mg/dL02/09/2025 2:59 PM EDTPKETTERING MEMORIAL HOSPITALpecimen (Source)Anatomical Location / LateralityCollection Method / VolumeCollection TimeReceived TimeBloodVenous blood / UnknownVenipuncture / Wioeljm2302/09/2025 2:24 PM EDT1 2:35 PM EDT Narrative Authorizing ProviderResult TypeResult StatusPatriclow LEIJA BLOOD ORDERABLESFinal ResultPerforming OrganizationAddressCity/State/ZIP CodePhone Number [facility] [address] [place] [address], * (ABNORMAL) Basic Metabolic Panel (02/09/2025 2:24 PM EDT)ComponentValueRef RangeTest MethodAnalysis TimePerformed AtPathologist HnuitcyqqQWSONN066994 - 146 mmol/L1 2:59 PM EDOHIOHEALTHPOTASSIUM 3.4(L)3.5 - 5.0 mmol/L1 2:59 PM EDOHIOHEALTHCHLORIDE97(L)98 - 109 mmol/L1 2:59 PM EDOHIOHEALTHCARBON NLGYTWC8617 - 32 mmol/L1 2:59 PM EDOHIOHEALTHANION IWF090 - 15 mmol/L1 2:59 PM EDT [facility]ERSONBLOOD UREA NKRFZHRC638 - 27 mg/dL02/09/2025 2:59 PM EDOHIOHEALTHCREATININE1.16(H)0.40 - 1.00 mg/dL02/09/2025 2:59 PM EDOHIOHEALTHComment:METHOD TRACEABLE TO IDMS CTFFOXEUILKBGFA345(H)65 - 99 mg/dL02/09/2025 2:59 PM EDT [facility]CALCIUM9.28.5 - 10.5 mg/dL02/09/2025 2:59 PM EDOHIOHEALTHEGFR Non-Race Ovhmrdxfg11(L)>=60 ml/min/1.73sq.m1 2:59 PM [facility] Comment: eGFR not reported due to non-numeric value for Creatinine. Reported eGFR is based on the CKD-EPI 2020 equation that does not use a race coefficient. Specimen (Source)Anatomical Location / LateralityCollection Method / Volume Collection TimeReceived TimeBloodVenous blood / UnknownVenipuncture / Unknown 02/09/2025 2:24 PM EDT1 2:35 PM EDT Narrative Authorizing ProviderResult TypeResult StatusPatriclow Mims MDLAB BLOOD ORDERABLESFinal ResultPerforming OrganizationAddressCity/State/ZIP CodePhone Number [facility] [address] [place] [address], * (ABNORMAL) CBC auto differential (02/09/2025 2:24 PM EDT)ComponentValueRef RangeTest MethodAnalysis TimePerformed AtPathologist SignatureWBC9.64 - 11 x10E9/L1 3:34 PM [facility] CENTERRBC Count5.30 (H)3.8 - 5.2 X10E12/L1 3:34 PM [facility] Duhkkvbnbr84.6(L)11.7 - 15.5 g/dL02/09/2025 3:34 PM [facility] CENTERHematocrit34.6(L)35 - 47 %02/09/2025 3:34 PM [facility]ENTERMCV65(L)80 - 100 fL02/09/2025 3:34 PM [facility]ENTERMCH20.0(L)27 - 34 pg02/09/2025 3:34 PM [facility] CENTERMCHC30.6(L)32 - 36 g/dL02/09/2025 3:34 PM EDT [facility] ANDERSONRDW22.2(H)11.5 - 15 %02/09/2025 3:34 PM EDT [facility] ANDERSONPlatelet Juxdm479284 - 450 X10E9/L 02/09/2025 3:34 PM [facility] CENTERMPV8.47 - 12 fL 02/09/2025 3:34 PM [facility] CENTERNeutrophils %69.3% 02/09/2025 3:34 PM [facility] CENTERComment:This is an appended report. These results have been appended to a previously preliminary verified report.Lymphocytes %23.0%02/09/2025 3:34 PM [facility] CENTERComment:This is an appended report. These results have been appended to a previously preliminary verified report.Monocytes %4.1%02/09/2025 3:34 PM [facility]:This is an appended report. These results have been appended to a previously preliminary verified report.Eosinophils %1.7%02/09/2025 3:34 PM [facility] CENTERComment:This is an appended report. These results have been appended to a previously preliminary verified report.Basophils %1.9%02/09/2025 3:34 PM [facility]ENTERComment:This is an appended report. These results have been appended to a previously preliminary verified report. Neutrophils Absolute (A)6.61.5 - 6.6 10*3/uL02/09/2025 3:34 PM [facility] CENTERComment:This is an appended report. These results have been appended to a previously preliminary verified report.Lymphocytes Absolute2.21.0 - 3.5 10*3/uL02/09/2025 3:34 PM [facility]ENTERComment:This is an appended report. These results have been appended to a previously preliminary verified report.Monocytes Absolute0.40.0 - 0.9 10*3/uL02/09/2025 3:34 PM [facility]:This is an appended report. These results have been appended to a previously preliminary verified report.Eosinophils Absolute0.20.0 - 0.4 10*3/uL02/09/2025 3:34 PM [facility]burgment:This is an appended report. These results have been appended to a previously preliminary verified report.Basophils Absolute0.20.0 - 0.2 10*3/uL02/09/2025 3:34 PM [facility]ENTERComment:This is an appended report. These results have been appended to a previously preliminary verified report.Anisocytosis2+ 02/09/2025 3:34 PM EDOHIOHEALTHComment:This is an appended report. These results have been appended to a previously preliminary verified report.Elliptocytes1+02/09/2025 3:34 PM EDOHIOHEALTHComment:This is an appended report. These results have been appended to a previously preliminary verified report.Differential TypeAUTOMATED ABXLZQCWOGDN95/16/2025 3:34 PM [facility]ENTERComment: This is an appended report. These results have been appended to a previously preliminary verified report.Specimen (Source)Anatomical Location / Laterality Collection Method / VolumeCollection TimeReceived TimeBloodVenous blood / UnknownVenipuncture / Lvsoued5702/09/2025 2:24 PM EDT1 2:35 PM EDT Narrative Authorizing ProviderResult TypeResult StatusPamartina Mims MDLAB BLOOD ORDERABLESFinal ResultPerforming OrganizationAddressCity/State/[facility]ENTERB CodePhone Number [facility]Mindi [facility] [address] [place] [address], documented in this encounter Visit Diagnoses Diagnosis Abdominal pain, unspecified abdominal location- Primary documented in this encounter Administered Medications Medication OrderMAR ActionAction DateDoseRateSite HYDROmorphone (PF) (DILAUDID) injection 1 mg 1 mg, intravenous, Once, On Susanna 02/09/25 at 1420, For 1 dose, If IV push, administer over over 2 to3 minutes. Look-alike/sound-alike medication - verify indication for use. Given02/09/2025 2:40 PM EDT1 mg iohexoL (OMNIPAQUE) 300 mg iodine/mL 100 mL 100 mL, intravenous, Once in imaging, contrast, Starting on Susanna 02/09/25 at 1506, For 1 dose, VESICANT (RED) Given02/09/2025 3:19 PM GSB183 mL ketorolac (TORADOL) injection 15 mg 15 mg, intravenous, Once, On Susanna 02/09/25 at 1420, For 1 dose, Look-alike/sound-alike medication - verify indication for use. Duration of therapy is not to exceed 5 days. Maximum recommended dose + 120mg/24 hours. Given02/09/2025 2:40 PM EDT15 mg ondansetron (PF) (ZOFRAN) injection 4 mg 4 mg, intravenous, Once, On Susanna 02/09/25 at 1420, For 1 dose, Intravenous administration preferred to be given over 2-5 minutes. Given02/09/2025 2:40 PM EDT4 mg sodium chloride 0.9 % flush 10 mL 10 mL, intravenous, As needed, line care, Starting on Susanna 02/09/25 at 1506 Given02/09/2025 3:20 PM EDT10 mL sodium chloride 0.9 % flush 3 mL 3 mL, intravenous, As needed, line care, before and after each intermittent use, Starting on Susanna 02/09/25 at 1418 sodium chloride 0.9 % radiology injection 80 mL, intravenous, Once in imaging, pre/post contrast, Starting on Susanna 02/09/25 at 1506, For 1 dose Given02/09/2025 3:19 PM EDT80 mLdocumented in this encounter Active and Recently Administered Medications Times are shown in EDT.Medication Order// HYDROmorphone (PF) (DILAUDID) injection 1 mg (COMPLETED) 1 mg, intravenous, Once, On Susanna 02/09/25 at 1420, For 1 dose, If IV push, administer over over 2 to3 minutes. Look-alike/sound-alike medication - verify indication for use. * 1440 (Given - Provider: Sirena Winkler RN) ketorolac (TORADOL) injection 15 mg (COMPLETED) 15 mg, intravenous, Once, On Susanna 02/09/25 at 1420, For 1 dose, Look-alike/sound-alike medication - verify indication for use. Duration of therapy is not to exceed 5 days. Maximum recommended dose + 120mg/24 hours. * 1440 (Given - Provider: Sirena Winkler RN) ondansetron (PF) (ZOFRAN) injection 4 mg (COMPLETED) 4 mg, intravenous, Once, On Susanna 02/09/25 at 1420, For 1 dose, Intravenous administration preferred to be given over 2-5 minutes. * 1440 (Given - Provider: Sirena Winkler RN) Medication Order iohexoL (OMNIPAQUE) 300 mg iodine/mL 100 mL (COMPLETED) 100 mL, intravenous, Once in imaging, contrast, Starting on Susanna 02/09/25 at 1506, For 1 dose, VESICANT (RED) * 1519 (Given - Provider: JOSELITO Kulkarni) sodium chloride 0.9 % flush 10 mL 10 mL, intravenous, As needed, line care, Starting on Susanna 02/09/25 at 1506 * 1520 (Given - Provider: JOSELITO Kulkarni) sodium chloride 0.9 % flush 3 mL 3 mL, intravenous, As needed, line care, before and after each intermittent use, Starting on Susanna 02/09/25 at 1418 sodium chloride 0.9 % radiology injection (COMPLETED) 80 mL, intravenous, Once in imaging, pre/post contrast, Starting on Susanna 02/09/25 at 1506, For 1 dose * 1519 (Given - Provider: JOSELITO Kulkarni) documented in this encounter Additional Health Concerns AssessmentNoted TimePHQ-9 Depression Total Score: 12:36 PM EDT documented as of this encounter Care Teams Team MemberRelationshipSpecialtyStart DateEnd Date Michael Steiner DO [facility] [address] PCP - GeneralInternal Medicine12/17/23documented as of this encounter
--- OUTSIDE RECORDS SUMMARY | 2025-02-22 15:15 | XMS_ITS | Encounter Summary ---
Author Organization [facility] Playdate App [facility] tem Address [id number] [place] [address] Care Team Providers Care Director Day Care [facility] Name Role Phone Obdulia Michael Janae CABRERA Primary Care Provider [phone] Reason for Visit * ReasonCommentsAbdominal Pain Encounter Details DateTypeDepartmentCare Team (Latest Contact Info)Djpnsbvdcqy55/29/2025 3:15 PM EDT - 02/22/2025 5:54 PM EDTEmergency [facility] [address] [place] [id number] Fernando Torres MD [address] [place] [address] Right upper quadrant abdominal pain (Primary Dx) Discharge Disposition: Home Social History Tobacco UseTypesPacks/DayYears UsedDateSmoking Tobacco: EbspztCuriggqipz143 09/1981 - mokeless Tobacco: Never Comments:5-6 cigerettes [...] times a week07/25/2023How often do you attend restorationism or temple services?More than 4 times per year07/25/2023o you belong to any clubs or organizations such as restorationism groups, unions, fraternal [...] care, and heating?Not very hard 12/04/2024PHQ-2AnswerDate RecordedTotal Sokcx741[facility] [place] [facility] - Occupational Stress QuestionnaireAnswerDate RecordedDo you feel stress - tense, restless, nervous, or anxious, or unable to sleep at night because yourmind is troubled all the time - these days?Only a kiknty1307/25/2023 Exercise Vital SignAnswerDate RecordedOn average, how many [...] of a household?No12/04/2024hildcareAnswerDate RecordedDo problems getting child life specialist make 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 to work or study?No 12/04/2024EmploymentAnswerDate RecordedDo you need help finding a local career center and/or a training program?No12/04/2024Hunger ScreeningAnswerDate Recorded Within the past 12 months we worried whether our food would run out before we got money to buy more.Never True02/22/2025Within the past 12 months the food we bought just didn't last and we didn't have money to get more.Never True 02/22/2025Purpose - LifeAnswerDate RecordedI have a purpose and direction in my life.Strongly Agree07/25/2023CommentsNoSex and Gender InformationValue Date RecordedSex Assigned at CkkeiIimwsc92/10/2021 8:51 AM EDTLegal SexFemale 02/16/2017 2:26 PM EDTGender NsunvstrKarpds12/10/2021 8:51 AM EDTSexual CzsybiujwsdDnpzxgft47/02/2023 8:29 PM ESTdocumented as of this encounter Last Filed Vital Signs Vital SignReadingTime TakenCommentsBlood Fsnatphz679/6310 5:45 PM EDT Rzaub778002/22/2025 5:45 PM NEYVkerwvyocvb21.7 ??C (98.1 ??F)02/22/2025 2:45 PM EDTRespiratory Kivn2505 2:45 PM EDTOxygen Kwdlczgslo34%02/22/2025 5:45 PM EDTInhaled Oxygen Concentration--Waorys359.8 kg (231 lb)02/22/2025 2:45 PM ABXPtfibg866.3 cm (5' 9 )02/22/2025 2:45 PM EDTBody Mass Index34.111 2:45 PM EDTdocumented in this encounter Discharge Instructions * Discharge Instructions* PRAKASH Bauer - 02/22/2025 5:37 PM EDT Thank you for choosing us for your medical care. We know you have a choice, and we appreciate you choosing us for your medical concerns! You may receive a survey from the hospital about your visit. We very much appreciate your comments and concerns. Please read all medication insert instructions and side effects when dispensed by the pharmacy. Every medication has side effects, and you may experience any of them. Please call the emergency room with any questions or concerns you have. Please call your doctor for outpatient follow up and recommendations. The emergency room cannot replace ongoing care, and it is important for your personal physician to evaluate you and monitor your health. Return to the ER for increased pain, fever > 101.5, vomiting twice, or any concern you deem emergent. Ana Zafar CNP documented in this encounter Medications at Time [...] atorvastatin (LIPITOR) 80 mg tablet Indications:Atherosclerosis of [place] coronary artery of [place] heart without angina pectoris,Hx of hyperlipidemiaTake 1 tablet (80 mg total) by mouth in the morning. 90 tablet ibgxfdhhtp-vxhkibqv-dpeirsracv (BREZTRI AEROSPHERE) 160-9-4.8 mcg/actuation HFA aerosol inhaler Indications:Chronic obstructive pulmonary disease, unspecified COPD type ([facility]-HCC)Inhale 2 puffs in the morning and 2 [...] and 1 tablet before bedtime. 60 tablet kgkudi-dxwzxzeiu-baf,al-simeth (FIRST-MOUTHWASH BLM) 89-105-932-40 mg/30mL mouthwash Indications:StomatitisTake 5 mL by mouth 4 (four) times a day as needed for mucositis or mouth/gum irritation. 119 mL doxepin (SINEquan) 75 mg capsule empagliflozin (JARDIANCE) 10 mg tablet tablet Indications:Chronic heart failure with preserved ejection fraction (CMS-HCC), Atherosclerosis of [place] coronary artery of [place] heart without angina pectorisTake 1 tablet (10 mg total) by mouth in the morning. TAKE 1 TABLET (10 MG TOTAL) BY MOUTH IN THE MORNING. 90 tablet ezetimibe (ZETIA) 10 mg tablet Indications:Atherosclerotic heart disease of [place] coronary artery with other forms of angina [...] with preserved ejection fraction (CMS-HCC), Pulmonary hypertension (CMS-HCC),Nonrheumatic tricuspid valve regurgitation, Essential hypertension,Atherosclerosis of [place] coronary artery of [place] heart without angina pectoris,History of four vessel coronary artery bypass graft, NSTEMI (non-ST elevated myocardial infarction) (CMS-HCC)Take 1 tablet (25 mg total) by mouth nightly. 30 tablet ondansetron ODT (ZOFRAN ODT) 4 mg disintegrating tablet Dissolve 1 tablet (4 mg total) on tongue every 8 (eight) hours as needed for nausea for up to 10 doses. 10 tablet 02/09/2025 oxygen Inhale 2 L/min continuously. pantoprazole (PROTONIX) 40 mg EC tablet Indications:Gastro-esophageal reflux disease without esophagitisTake 1 tablet (40 mg total) by mouth every morning before breakfast. 90 tablet 11/07/2024 potassium chloride (K-TAB,KLOR-CON) 20 mEq CR tablet Take 1 tablet (20 mEq total) by mouth in the morning. 30 tablet pregabalin (LYRICA) 100 mg capsule Indications:Peripheral polyneuropathyTake 1 capsule (100 mg total) by mouth before bedtime.12/06/2024 propranoloL (INDERAL) 40 mg tablet Take 1 tablet (40 mg total) by mouth in the morning and at bedtime. TAKE 1 TABLET (40 MG TOTAL) BY MOUTH IN THE MORNING AND BEFORE XLLIQMH7811/08/2024 spironolactone (ALDACTONE) 25 mg tablet Indications:Chronic diastolic heart failure (CMS-HCC)Take 1 tablet (25 mg total) by mouth in the morning. 90 tablet torsemide (DEMADEX) 20 mg tablet Indications:Chronic diastolic heart failure (CMS-HCC)Take 4 tablets (80 mg total) by mouth daily. 120 tablet TRINTELLIX 10 mg tablet Take 1 tablet (10 mg total) by mouth in the morning.10/03/2024 valsartan (DIOVAN) 40 mg tablet Indications:Chronic diastolic heart failure (CMS-HCC),Pulmonary hypertension (CMS-HCC)Take 1 tablet (40 mg total) by mouth in the morning. 30 tablet documented as of this encounter ED Notes * PRAKASH Bauer - 02/22/2025 3:26 PM EDT Images from the original note were not included. [facility] - EMERGENCY Pt Name: Monet Recinos Birthdate: 1960 Chief Complaint: Chief Complaint Patient presents with Abdominal Pain History of Present Illness: Monet Recinos is a 64-year-old female that presents to ED with complaint of right upper abdominal pain. Patient states she was in about 2 weeks ago and diagnosed with an inflamed appendix. She states she was told if the pain got worse to return as she may progress to appendicitis. She states the pain is significantly worse in the right upper quadrant. Denies any constipation or dysuria. Denies anynausea or vomiting. History provided by: Patient healthcare interpreter used: No Past Medical History: Past Medical History: Diagnosis Date Agoraphobia Angina at rest Anxiety BiPAP (biphasic positive airway pressure) dependence Bipolar disorder ([facility]) Breast injury CHF (congestive heart failure) ([facility]) Chipped tooth Chronic kidney disease COPD (chronic obstructive pulmonary disease) ([facility]) Coronary artery disease Dementia ([facility]) Depression Diarrhea frequent bouts /involuntary Dizziness Fracture, vertebral, lumbar closed ([facility]) GERD (gastroesophageal reflux disease) Headache History of coronary artery bypass graft 08/14/2020 Liver disease Low back pain Lump or mass in breast Memory loss Myocardial infarction ([facility]) Apr 2009, swith stent placement Obesity BONY treated with BiPAP 07/31/2022 Osteoarthritis Panic disorder PONV (postoperative nausea and vomiting) Psoriasis PTSD (post-traumatic stress disorder) Pulmonary emboli ([facility]) Rib fracture 09/2023 lt Rotator cuff tear L Shortness of breath Sleep apnea Visual impairment glasses Past Surgical History: Past Surgical History: Procedure Laterality Date BREAST BIOPSY BREAST CYST EXCISION Cardiac catheterization N/A 01/09/2020 Performed by Yefri Khan MD at [facility] Cardiac catheterization-LV Cors N/A 08/06/2020 Performed by Hazel Painting MD at [facility] SECTION CHOLECYSTECTOMY COLONOSCOPY N/A 04/03/2017 Performed by Jose Beaver MD at [facility] Coronary angiogram and left ventricular gram/pressure N/A 01/09/2020 Performed by Yefri Khan MD at [facility] CORONARY ANGIOPLASTY WITH STENT PLACEMENT CORONARY ARTERY BYPASS GRAFT X4/ THOMPSON/ SVG X3 / RIGHT UPPER LEG OPEN VEIN HARVEST/ LEFT UPPER LEG OPEN VEING HARVEST /GINETTE N/A 08/13/2020 Performed by Leroy Meng MD at [facility] Drug eluting stent left anterior descending N/A 01/09/2020 Performed by Yefri Khan MD at [facility] ESOPHAGOGASTRODUODENOSCOPY DIAGNOSTIC N/A 01/04/2025 Performed by Michael Steiner DO at [facility] EXCISION SEROMA LOWER EXTREMITY Left 10/07/2022 Performed by Victor Hugo Vincent DO at [facility] Intravascular ultrasound coronary N/A 08/06/2020 Performed by Hazel Painting MD at [facility] Intravascular ultrasound coronary N/A 01/09/2020 Performed by Yefri Khan MD at [facility] NOTCHARGED/Thrombolysis arterial initial treatment N/A 01/09/2020 Performed by Yefri Khan MD at [facility] TONSILLECTOMY Family History: [...] very hard Food Insecurity: No Food Insecurity (02/22/2025) Hunger Screening Food Insecurity - Worry: Never True Food Insecurity - Inability: Never True Transportation Needs: No Transportation Needs (12/04/2024) PRAPARE - Transportation Lack of Transportation (Medical): No Lack of Transportation (Non-Medical): No Physical Activity: Inactive (07/25/2023) Exercise Vital Sign Days of Exercise per Week: 0 days Minutes of Exercise per Session: 0 min Stress: No Stress Concern Present (07/25/2023) [place] [employer] - Occupational Stress Questionnaire Feeling of Stress : Only a little Recent Concern: Stress - Stress Concern Present (07/25/2023) [place] [employer] - Occupational Stress Questionnaire Feeling of Stress : Very much Social Connections: Moderately Isolated (07/25/2023) Social Connection and Isolation Panel Frequency of Communication with Friends and Family: Three times a week Frequency of Social Gatherings with Friends and Family: Three times a week Attends [employer] Services: More than 4 times per year [...] No Review of Systems: Review of Systems Constitutional: Negative for chills and fever. HENT: Negative for ear pain. Eyes: Negative for pain. Respiratory: Negative for shortness of breath. Cardiovascular: Negative for chest pain/discomfort. Gastrointestinal: Positive for abdominal pain. Negative for diarrhea, nausea and vomiting. Genitourinary: Negative for flank pain. Musculoskeletal: Negative for back pain. Skin: Negative for rash. Neurological: Negative for headaches. Psychiatric/Behavioral: Negative for sleep disturbance and suicidal ideas. Physical Exam: ED Triage Vitals [02/22/25 1445] Temp Heart Rate Resp BP SpO2 36.7 ??C (98.1 ??F) 90 18 123/73 96 % Temp Source Heart Rate Source Patient Position BP Location FiO2 (%) Oral -- Sitting Left arm -- Vitals: 02/22/25 1445 02/22/25 1705 02/22/25 1730 BP: 123/73 114/70 131/72 Temp: 36.7 ??C (98.1 ??F) TempSrc: Oral Pulse: 90 Resp: 18 SpO2: 96% 95% 95% MAP (mmHg): 87 Height: 175.3 cm (5' 9 ) Weight: 104.8 kg (231 lb) Physical Exam Vitals reviewed. HENT: Head: Normocephalic and atraumatic. Eyes: Conjunctiva/sclera: Conjunctivae normal. Cardiovascular: Rate and Rhythm: Normal rate. Pulmonary: Effort: Pulmonary effort is normal. Breath sounds: Normal breath sounds. Abdominal: General: There is no distension. Palpations: Abdomen is soft. Tenderness: There is abdominal tenderness in the right upper quadrant and right lower quadrant. There is guarding. Musculoskeletal: General: Normal range of motion. Cervical back: Normal range of motion and neck supple. Skin: General: Skin is warm and dry. Neurological: General: No focal deficit present. Mental Status: She is alert and oriented to person, place, and time. GCS: GCS eye subscore is 4. GCS verbal subscore is 5. GCS motor subscore is 6. Procedure: Procedures Re-evaluation: 1734 - CT and lab work are unremarkable for any acute findings. I explained to patient that there is no appendicitis shown on the CT scan. Patient states then why does my belly hurt. I reassured her that there was no abnormalities in the CT scan or lab work or urine to indicate any acute finding. Patient is agreeable to discharge at this time and follow up to family doctor. Medical Decision Making Plan of care - labs, imaging, pain management Amount and/or Complexity of Data Reviewed Labs: ordered. Decision-making details documented in ED Course. Radiology: ordered. Decision-making details documented in ED Course. Risk Prescription drug management. ED Course: Clinical Impressions as of 02/22/25 1738 Right upper quadrant abdominal pain . ED Disposition ED Disposition Discharge Date/Time ThuFeb 22, 2025 5:37 PM Comment At the time of discharge, the plan has been discussed with the patient regarding the diagnosis and prognosis. All questions have been answered. Verbal discharge instructions were discussed with the patient. The patient has been advised to follow up w ith their Primary Care Provider within 1 week. The patient was also instructed to return to the ED if their symptoms change, worsen, new symptoms arise or if they have any additional concerns. Shared/Split Visit 16:54 EDT Vivien Bob), scribed for and in the presence of: Dr. Torres who performed the above service. Dr. Brian Bob personally performed a fzbr-kp-btxx diagnostic evaluation on this patient. I personally made and approved the management plan for this patient and take responsibility for the patient management. Additional Notes/Findings: Monet Recinos is a 64 y.o. female presenting to the ED for chief complaint of abdominal pain. Exam findings as follows: Constitutional: Awake and alert HENT: Head normocephalic and atraumatic Eyes: conjunctiva unremarkable Cardiovascular: Heart rate regular Pulmonary: Easy work of breathing, speaking full sentences Abdominal: Flat and non-distended Skin: Warm and dry Musculoskeletal: Moving all extremities spontaneously Neurological: alert and oriented Please note that portions of this note were completed with a voice recognition program. Efforts were made to edit the dictations but occasionally words are mis-transcribed. PRAKASH Bauer 02/22/25 1527 Vivien Gandara 02/22/25 1655 PRAKASH Bauer 02/22/25 1738 * Patricia Brown RN - 02/22/2025 2:44 PM EDT Patient reports right sided abdominal pain that started yesterday. documented in this encounter Plan of Treatment DateTypeDepartmentCare Team (Latest Contact Info)Jwrbgtzngte15/19/2025 1:30 PM ESTOffice Visit [facility] [address] [place] [address] Michael Steiner, [address] [place] [address] documented as of this encounter Goals GoalPatient Goal TypeAssociated ProblemsRecent ProgressPatient-Stated?Author home Jimena Wilson LSW Note: Evaluation of progress towards goal: feeling better documented as of this encounter Procedures Procedure NamePriorityDate/TimeAssociated DiagnosisCommentsPOCT NURSING URINE MACROSCOPIC XVMzvmoci30/29/2025 5:26 PM EDT ER EXTRA URINE WQYRWRIIJZ89/29/2025 5:18 PM EDT ER EXTRA URINE AOUJVDBVFZT70/29/2025 5:18 PM EDT ER EXTRA SSOOTZBEJ66/29/2025 5:[address] ABDOMEN AND PELVIS W ACASRTXU80/29/2025 3:46 PM EDT EXTRA TUBES SST XTFYwpjwko63/29/2025 3:40 PM EDT EXTRA TUBES BLUE GSESlddycu04/29/2025 3:40 PM EDT LACTATE W/ JFASKRSXAQ53/29/2025 3:40 PM EDT EXTRA MMJYDEjjlujv20/29/2025 3:40 PM EDT CBC WITH AUTO PFTXNNBACRTQVSXH70/29/2025 3:40 PM EDT OJURMBMTXJDRZ41/29/2025 3:40 PM EDT PJDCWXETCG44/29/2025 3:40 PM EDT COMPREHENSIVE METABOLIC GJLZQLANB74/29/2025 3:40 PM EDT documented in this encounter Results * (ABNORMAL) POCT Nursing Urine Macroscopic UA (02/22/2025 5:26 PM EDT)Component ValueRef RangeTest MethodAnalysis TimePerformed AtPathologist [facility] Urine Specific Gravity1.0101.010, 1.015, 1.020, 1.1063902/22/2025 5:27 PM EDT [facility] Urine Leukocyte EsteraseNegative Oxmpgzys62/29/2025 5:27 PM EDTPROMEDSANTA [facility]ARA [facility] Urine CjqkmqaAapywgcoAxdqnusj15/29/2025 5:27 PM [facility]TPUN[facility] Urine pH5.55.0, 6.0, 6.5, 7.0, 7.5, 8.0, 8.5, 5. 5:27 PM EDTPUN[facility] Urine ProteinNegativeNegative 02/22/2025 5:27 PM [facility] Urine Rdigcqc093 mg/dL(A)Ddmokoqu13/29/2025 5:27 PM [facility] Urine GvvauwgFpmjcfmeKdngbicx33/29/2025 5:27 PM EDMCC[facility] Urine Urobilinogen0.2 E.U./dL02/22/2025 5:27 PM EDMCCULL[facility] Urine FdbnoewhwTjolpcyvGmhhkwsx21/29/2025 5:27 PM [facility] Urine Blood/HGBTrace(A)Negative 02/22/2025 5:27 PM [facility] (Source) Anatomical Location / LateralityCollection Method / VolumeCollection Time Received SphtAnfyi10/29/2025 5:26 PM EDT1 5:26 PM EDT Narrative Authorizing ProviderResult TypeResult StatusPahuseyin Torres [facility]EROINT [facility] CARE TEST ORDERABLESFinal ResultPerforming OrganizationAddressCity/State/ZIP CodePhone Number [address] [place] [address], * Extra Urine [place] (02/22/2025 5:18 PM EDT)ComponentValueRef RangeTest Method Analysis TimePerformed AtPathologist SignatureExtra TubeAuto Resulted 02/22/2025 7:01 PM [facility] (Source) Anatomical Location / LateralityCollection Method / VolumeCollection Time Received TimeUrineUrine specimen collection, clean catch / Rxaqlhp8802/22/2025 5:18 PM EDT1 5:56 PM EDT Narrative Authorizing ProviderResult TypeResult StatusAmber Andrade FOOD SANITARIAN-CNPURINE ORDERABLESFinal ResultPerforming OrganizationAddressCity/State/ZIP CodePhone Number [address] [place] [address], [place] * Extra Urine Culture (02/22/2025 5:18 PM EDT)ComponentValueRef RangeTest Method Analysis TimePerformed AtPathologist SignatureExtra TubeAuto Resulted 02/22/2025 7:01 PM EDTPTHE BELLEVUE HOSPITALpecimen (Source) Anatomical Location / LateralityCollection Method / VolumeCollection Time Received TimeUrineUrine specimen collection, clean catch / Dukradt0302/22/2025 5:18 PM EDT1 5:56 PM EDT Narrative Authorizing ProviderResult TypeResult StatusAmber Zafar FOOD SANITARIAN-CNPURINE ORDERABLESFinal ResultPerforming OrganizationAddressCity/State/ZIP CodePhone Number [address] [place] [address], [place] * Extra Urine (02/22/2025 5:18 PM EDT)ComponentValueRef RangeTest MethodAnalysis TimePerformed AtPathologist SignatureExtra TubeAuto Vzhvdpsn08/29/2025 7:01 PM EDTPTHE BELLEVUE HOSPITALpecwell[facility] (Source)Anatomical Location / LateralityCollection Method / VolumeCollection TimeReceived TimeUrineUrine specimen collection, clean catch / Atvtuvk4302/22/2025 5:18 PM EDT1 5:56 PM EDT Narrative Authorizing ProviderResult TypeResult StatusAmber Andrade FOOD SANITARIAN-CNPURINE ORDERABLESFinal ResultPerforming OrganizationAddressty/State/ZIP CodePhone Number [address] [place] [address], [place] * CT abdomen and pelvis with contrast (02/22/2025 3:46 PM EDT)Anatomical Region LateralityModalityBody, Abdomen, Body CoveraN/AComputed TomographySpecimen (Source)Anatomical Location / LateralityCollection Method / VolumeCollection TimeReceived Time02/22/2025 3:48 PM EDT Narrative 02/22/2025 3:54 PM EDT CLINICAL HISTORY: Abdominal pain. Rule out appendicitis. CT ABDOMEN AND PELVIS WITH CONTRAST: 02/22/2025 COMPARISON: 02/09/2025 PROCEDURE: Axial images were obtained through the abdomen and pelvis after oral contrast ingestion and 100 mL Omnipaque 300 intravenously. Coronal and sagittal reconstructions were performed. All CT scans at this facility use dose modulation, iterative reconstruction, and/or weight based dosing when appropriate to reduce radiation dose to as low as reasonably achievable. FINDINGS : Linear opacities in the lower lungs, most prominently the right lung base, no pleural effusion is evident. Are compatible with scarring/atelectasis.. The appearance is similar compared to recent studies. An underlying abnormality cannot be completely excluded. No focal hepatic or splenic abnormality is present. The pancreas and adrenal glands are within normal limits. The gallbladder is been removed. There is no biliary dilation. Renal enhancement is symmetric with no focal parenchymal abnormality. There is no pelvocaliectasis or perinephric fluid. The ureters and urinary bladder are within normal limits. Pelvic organs are not optimally evaluated by CT with no acute irregularity suggested. Gas and stool are present within bowel distally to the rectosigmoid. There is no focal bowel irregularity. No acute inflammatory changes are present. There is no extraluminal gas or fluid. There are no findings indicative of acute appendicitis. Degenerative changes are present through the lumbar spine with some endplate irregularity and sclerosis at L3 and L4 inferiorly. This appears chronic. Facet degenerative changes are present with subluxation. Pelvic osseous structures appear intact. IMPRESSION: No acute intra-abdominal or pelvic abnormality. No findings of acute appendicitis. Finalized by Saurabh Anderson MD on 02/22/2025 3:54 PM Procedure Note Saurabh Anderson MD - 02/22/2025 CLINICAL HISTORY: Abdominal pain. Rule out appendicitis. CT ABDOMEN AND PELVIS WITH CONTRAST: 02/22/2025 COMPARISON: 02/09/2025 PROCEDURE: Axial images were obtained through the abdomen and pelvis afteroral contrast ingestion and 100 mL Omnipaque 300 intravenously. Coronaland sagittal reconstructions were performed. All CT scans at this facilityuse dose modulation, iterative reconstruction, and/or weight based dosingwhen appropriate to reduce radiation dose to as low as reasonably achievable. FINDINGS : Linear opacities in the lower lungs, most prominently the right lung base,no pleural effusion is evident. Are compatible with scarring/atelectasis..The appearance is similar compared to recent studies. An underlyingabnormality cannot be completely excluded. No focal hepatic or splenic abnormality is present. The pancreas andadrenal glands are within normal limits. The gallbladder is been removed.There is no biliary dilation. Renal enhancement is symmetric with no focal parenchymal abnormality.There is no pelvocaliectasis or perinephric fluid. The ureters and urinarybladder are within normal limits. Pelvic organs are not optimallyevaluated by CT with no acute irregularity suggested. Gas and stool are present within bowel distally to the rectosigmoid. Thereis no focal bowel irregularity. No acute inflammatory changes are present.There is no extraluminal gas or fluid. There are no findings indicative ofacute appendicitis. Degenerative changes are present through the lumbar spine with someendplate irregularity and sclerosis at L3 and L4 inferiorly. This appearschronic. Facet degenerative changes are present with subluxation. Pelvicosseous structures appear intact. IMPRESSION: No acute intra-abdominal or pelvic abnormality. No findings of acute appendicitis. Finalized by Saurabh Anderson MD on 02/22/2025 3:54 PM Authorizing ProviderResult TypeResult StatusAmber Andrade CORADON-CNPIMG CT ORDERABLESFinal Result * SST TOP (02/22/2025 3:40 PM EDT)ComponentValueRef RangeTest MethodAnalysis TimePerformed AtPathologist SignatureExtra TubeAuto Mfaaywko78/29/2025 5:01 PM EDTPTHE BELLEVUE HOSPITALpecimen (Source)Anatomical Location / LateralityCollection Method / VolumeCollection TimeReceived TimeBloodVenous blood / Nbxtnsr6002/22/2025 3:40 PM EDT1 4:01 PM EDT Narrative Authorizing ProviderResult TypeResult StatusAmber Andrade CORADON-CNPLAB BLOOD ORDERABLESFinal ResultPerforming OrganizationAddressCity/State/ZIP CodePhone Number [facility] [address] [place] [address], * Light Blue Top (02/22/2025 3:40 PM EDT)ComponentValueRef RangeTest Method Analysis TimePerformed AtPathologist SignatureExtra TubeAuto Resulted 02/22/2025 5:01 PM EDTPC[facility] (Source) Anatomical Location / LateralityCollection Method / VolumeCollection Time Received TimeBloodVenous blood / Kmjqdxo1602/22/2025 3:40 PM EDT1 4:01 PM EDT Narrative Authorizing ProviderResult TypeResult StatusAmber Andrade FOOD SANITARIAN-CNPLAB BLOOD ORDERABLESFinal ResultPerforming OrganizationAddressCity/State/ZIP CodePhone Number [address] [place] [address], [place] * Lactate w/ Reflex (02/22/2025 3:40 PM EDT)ComponentValueRef RangeTest Method Analysis TimePerformed AtPathologist SignatureLACTATE W/REFLEX0.90.4 - 2.0 mmol/L1 4:13 PM EDTPCleveland Clinic [facility]or Hospital (Source)Anatomical Location / LateralityCollection Method / VolumeCollection TimeReceived TimeBloodVenous blood / UnknownVenipuncture / Udnxdlf7102/22/2025 3:40 PM EDT1 3:55 PM EDT Narrative [facility] - 02/22/2025 4:13 PM EDT Result did not trigger repeat Lactate, re-order if needed. Authorizing ProviderResult TypeResult StatusAmber Andrade CORADON-CNPLAB BLOOD ORDERABLESFinal ResultPerforming OrganizationAddressty/State/ZIP CodePhone Number [address] [place] [address], [place] * Magnesium (02/22/2025 3:40 PM EDT)ComponentValueRef RangeTest MethodAnalysis TimePerformed AtPathologist SignatureMAGNESIUM2.31.8 - 2.6 mg/dL02/22/2025 4:16 PM EDTPCleveland Clinic [facility] (Source)Anatomical Location / LateralityCollection Method / VolumeCollection TimeReceived Time BloodVenous blood / UnknownVenipuncture / Apuogyj4702/22/2025 3:40 PM EDT 02/22/2025 3:55 PM EDT Narrative Authorizing ProviderResult TypeResult StatusAmber Andrade FOOD SANITARIAN-CNPLAB BLOOD ORDERABLESFinal ResultPerforming OrganizationAddressCity/State/ZIP CodePhone Number [address] [place] [address], [place] * Lipase (02/22/2025 3:40 PM EDT)ComponentValueRef RangeTest MethodAnalysis Time Performed AtPathologist JrieogiimBXGDED9308 - 40 U/L1 4:14 PM EDT [facility] (Source)Anatomical Location / LateralityCollection Method / VolumeCollection TimeReceived TimeBloodVenous blood / UnknownVenipuncture / Unrfobz3302/22/2025 3:40 PM EDT1 3:55 PM EDT Narrative Authorizing ProviderResult TypeResult StatusAmber Zafar FOOD SANITARIAN-CNPLAB BLOOD ORDERABLESFinal ResultPerforming OrganizationAddressCity/State/ZIP CodePhone Number [address] [address], * (ABNORMAL) Comprehensive metabolic panel (02/22/2025 3:40 PM EDT)Component ValueRef RangeTest MethodAnalysis TimePerformed AtPathologist SignatureSODIUM 893170 - 146 mmol/L1 4:16 PM [facility] POTASSIUM3.4(L)3.5 - 5.0 mmol/L1 4:16 PM [facility]ITALCHLORIDE96(L)98 - 109 mmol/L1 4:16 PM EDGENESIS HOSPITALCARBON ZPWBVUY2747 - 32 mmol/L1 4:16 PM EDT [facility]ITALANION WDD288 - 15 mmol/L1 4:16 PM EDGENESIS HOSPITALBLOOD UREA GSLMGFTC71(H)5 - 27 mg/dL 02/22/2025 4:16 PM EDGENESIS HOSPITALCREATININE1.53(H)0.40 - 1.00 mg/dL02/22/2025 4:16 PM [facility]ITALComment: METHOD TRACEABLE TO IDMS QVHRFRVPXMYVQWG354(H)65 - 99 mg/dL02/22/2025 4:16 PM [facility]ITALCALCIUM9.28.5 - 10.5 mg/dL02/22/2025 4:16 PM [facility]ITALTOTAL PROTEIN7.66.0 - 8.0 g/dL 02/22/2025 4:16 PM [facility]ITALALBUMIN4.13.2 - 5.3 g/dL02/22/2025 4:16 PM [facility]PITALALKALINE DDDZNEKEBJI5489 - 130 U/L1 4:16 PM [facility]ITALAST21<=41 U/L1 4:16 PM [facility] ALT22<=31 U/L1 4:16 PM [facility] BILIRUBIN,TOTAL0.40.3 - 1.2 mg/dL02/22/2025 4:16 PM [facility] HOSPITALEGFR Non-Race Djufjjvpm29(L)>=60 ml/min/1.73sq.m1 4:16 PM [facility]ITALComment: eGFR not reported due to non-numeric value for Creatinine. Reported eGFR is based on the CKD-EPI 2020 equation that does not use a race coefficient. Specimen (Source)Anatomical Location / LateralityCollection Method / Volume Collection TimeReceived TimeBloodVenous blood / UnknownVenipuncture / Unknown 02/22/2025 3:40 PM EDT1 3:55 PM EDT Narrative Authorizing ProviderResult TypeResult StatusAmber Andrade FOOD SANITARIAN-CNPLAB BLOOD ORDERABLESFinal ResultPerforming OrganizationAddressCity/State/ZIP CodePhone Number [facility] [address] [place] [address], * (ABNORMAL) CBC auto differential (02/22/2025 3:40 PM EDT)ComponentValueRef RangeTest MethodAnalysis TimePerformed AtPathologist DvlfcogojUFY90.4(H)4 - 11 x10E9/L1 4:25 PM EDGENESIS HOSPITALRBC Count5.16 3.8 - 5.2 X10E12/L1 4:25 PM [facility] Aihkpsqnqu24.7(L)11.7 - 15.5 g/dL02/22/2025 4:25 PM [facility]ITALHematocrit35.135 - 47 %02/22/2025 4:25 PM [facility]ITALMCV68(L)80 - 100 fL02/22/2025 4:25 PM [facility]ITALMCH20.8(L)27 - 34 pg02/22/2025 4:25 PM [facility]PITALMCHC30.5(L)32 - 36 g/dL02/22/2025 4:25 PM EDT [facility] HOSPITALRDW24.9(H)11.5 - 15 %02/22/2025 4:25 PM EDT [facility] HOSPITALPlatelet Oryxm143141 - 450 X10E9/L 02/22/2025 4:25 PM [facility]ITALMPV8.47 - 12 fL 02/22/2025 4:25 PM [facility]OSPITALNeutrophils %72.1% 02/22/2025 4:25 PM [facility]ITALComment:This is an appended report. These results have been appended to a previously preliminary verified report.Lymphocytes %19.1%02/22/2025 4:25 PM [facility]ITALComment:This is an appended report. These results have been appended to a previously preliminary verified report.Monocytes %6.3%02/22/2025 4:25 PM [facility]ITALComment:This is an appended report. These results have been appended to a previously preliminary verified report.Eosinophils %1.4%02/22/2025 4:25 PM [facility]ITALComment:This is an appended report. These results have been appended to a previously preliminary verified report.Basophils %1.1%02/22/2025 4:25 PM [facility]ITALComment:This is an appended report. These results have been appended to a previously preliminary verified report. Neutrophils Absolute (A)8.2(H)1.5 - 6.6 10*3/uL02/22/2025 4:25 PM [facility]ITALComment:This is an appended report. These results have been appended to a previously preliminary verified report.Lymphocytes Absolute2.21.0 - 3.5 10*3/uL02/22/2025 4:25 PM [facility]ITALComment:This is an appended report. These results have been appended to a previously preliminary verified report.Monocytes Absolute0.70.0 - 0.9 10*3/uL02/22/2025 4:25 PM [facility]ITALComment:This is an appended report. These results have been appended to a previously preliminary verified report.Eosinophils Absolute0.20.0 - 0.4 10*3/uL02/22/2025 4:25 PM [facility]ITALComment:This is an appended report. These results have been appended to a previously preliminary verified report.Basophils Absolute0.10.0 - 0.2 10*3/uL5 4:25 PM [facility]ITALComment:This is an appended report. These results have been appended to a previously preliminary verified report.Anisocytosis2+ 02/22/2025 4:25 PM [facility]ITALComment:This is an appended report. These results have been appended to a previously preliminary verified report.Hypochromia1+02/22/2025 4:25 PM [facility]ITALComment:This is an appended report. These results have been appended to a previously preliminary verified report.Target Cells1+02/22/2025 4:25 PM [facility]ITALComment:This is an appended report. These results have been appended to a previously preliminary verified report. Elliptocytes1+02/22/2025 4:25 PM [facility] Comment:This is an appended report. These results have been appended to a previously preliminary verified report.Differential TypeAUTOMATED DIFFERENTIAL 02/22/2025 4:25 PM EDTPROMEDICA LOMA [facility]DA [facility]DR[facility] HOSPITALComment:This is an appended report. These results have been appended to a previously preliminary verified report.Specimen (Source)Anatomical Location / LateralityCollection Method / VolumeCollection TimeReceived TimeBloodVenous blood / Unknown Venipuncture / Svxkfni5302/22/2025 3:40 PM EDT1 3:55 PM EDT Narrative Authorizing ProviderResult TypeResult StatusAmber Andrade FOOD SANITARIAN-CNPLAB BLOOD ORDERABLESFinal ResultPerforming OrganizationAddressCity/State/ZIP CodePhone Number [facility] [address] [place] [address], documented in this encounter Visit Diagnoses Diagnosis Right upper quadrant abdominal pain- Primary documented in this encounter Administered Medications Medication OrderMAR ActionAction DateDoseRateSite iohexoL (OMNIPAQUE) 300 mg iodine/mL 100 mL 100 mL, intravenous, Once in imaging, contrast, Starting on Thu02/22/25 at 1528, For 1 dose, VESICANT (RED) Given02/22/2025 3:45 PM OUN748 mL ketorolac (TORADOL) injection 30 mg 30 mg, intravenous, Once, On Thu02/22/25 at 1527, For 1 dose, Look-alike/sound-alike medication - verify indication for use. Duration of therapy is not to exceed 5 days. Maximum recommended dose + 120mg/24 hours. Given02/22/2025 3:27 PM EDT30 mg ondansetron (PF) (ZOFRAN) injection 4 mg 4 mg, intravenous, Once, On Thu02/22/25 at 1527, For 1 dose, Intravenous administration preferred to be given over 2-5 minutes. Given02/22/2025 3:27 PM EDT4 mg sodium chloride 0.9 % flush 10 mL 10 mL, intravenous, As needed, line care, Starting on Thu02/22/25 at 1528 Given02/22/2025 3:45 PM EDT10 mL sodium chloride 0.9 % radiology injection 80 mL, intravenous, Once in imaging, pre/post contrast, Starting on Thu02/22/25 at 1528, For 1 dose Given02/22/2025 3:45 PM EDT80 mLdocumented in this encounter Active and Recently Administered Medications Times are shown in EDT.Medication Order// ketorolac (TORADOL) injection 30 mg (COMPLETED) 30 mg, intravenous, Once, On Thu02/22/25 at 1527, For 1 dose, Look-alike/sound-alike medication - verify indication for use. Duration of therapy is not to exceed 5 days. Maximum recommended dose + 120mg/24 hours. * 1527 (Given - Provider: Patricia Brown, VICTOR M) ondansetron (PF) (ZOFRAN) injection 4 mg (COMPLETED) 4 mg, intravenous, Once, On Thu02/22/25 at 1527, For 1 dose, Intravenous administration preferred to be given over 2-5 minutes. * 1527 (Given - Provider: Patricia Brown RN) Medication Order/ iohexoL (OMNIPAQUE) 300 mg iodine/mL 100 mL (COMPLETED) 100 mL, intravenous, Once in imaging, contrast, Starting on Thu02/22/25 at 1528, For 1 dose, VESICANT (RED) * 1545 (Given - Provider: Gilbert Aviles - Comment: lot [id number], exp 10/17/27) sodium chloride 0.9 % flush 10 mL 10 mL, intravenous, As needed, line care, Starting on Thu02/22/25 at 1528 * 1545 (Given - Provider: Gilbert Aviles) sodium chloride 0.9 % radiology injection (COMPLETED) 80 mL, intravenous, Once in imaging, pre/post contrast, Starting on Thu02/22/25 at 1528, For 1 dose * 1545 (Given - Provider: Gilbert Aviles) documented in this encounter Additional Health Concerns AssessmentNoted TimePHQ-9 Depression Total Score: 12:36 PM EDT documented as of this encounter Care Teams Team MemberRelationshipSpecialtyStart DateEnd Date Michael Steiner DO [address] [place] [address] PCP - GeneralInternal Medicine12/17/23documented as of this encounter
--- OUTSIDE RECORDS SUMMARY | 2025-02-23 10:44 | XMS_ITS | Encounter Summary ---
Author Organization [employer] tem Address [id number] [address] [place] [address] Care Team Providers Care Manager Intranet Name Role Phone Michael Steiner DO Primary Care Provider [phone] Encounter Details DateTypeDepartmentCare Team (Latest Contact Info)Ozqywvkixpp16/16/2025Travel Social History Tobacco UseTypesPacks/DayYears UsedDateSmoking Tobacco: JeqroySemgeconrb297 09/1981 - mokeless Tobacco: Never Comments:5-6 cigerettes a da y Alcohol UseStandard Drinks/WeekCommentsNot Currently0 (1 standard drink = 0.6 oz pure alcohol)last use 15 years agoAHC UtilitiesAnswerDate RecordedIn the past 12 months has the [employer], gas, oil, or water [employer] threatened to shut off services in your home?No12/04/2024Social Connection and Isolation PanelAnswer Date RecordedIn a typical week, how many times do you talk on the phone with family, friends, or neighbors?Three times a week07/25/2023How often do you get together with friends or relatives?Three times a week07/25/2023How often do you attend methodist or bahai services?More than 4 times per year07/25/2023o you belong to any clubs or organizations such as methodist groups, unions, fraternal [...] care, and heating?Not very hard 12/04/2024PHQ-2AnswerDate RecordedTotal Bhyik062Finprimary children's hospital [facility] of Occupational Health - Occupational Stress QuestionnaireAnswerDate RecordedDo you feel stress - tense, restless, nervous, or anxious, or unable to sleep at night because yourmind is troubled all the time - these days?Only a rzjynn8307/25/2023 Exercise Vital SignAnswerDate RecordedOn average, how many [...] of a household?No12/04/2024hildcareAnswerDate RecordedDo problems 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 child care 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 work [...] and Gender InformationValue Date RecordedSex Assigned at CjrsjGctvjk15/10/2021 8:51 AM EDTLegal SexFemale 02/16/2017 2:26 PM EDTGender MfispxiaWbcnoy22/10/2021 8:51 AM EDTSexual RgwenjyfbpcPbbfrqks54/02/2023 8:29 PM ESTdocumented as of this encounter Plan of Treatment DateTypeDepartmentCare Team (Latest Contact Info)Yyaczvbonxd82/19/2025 1:30 PM ESTOffice Visit [facility] [address] [place] [phone] Michael Steiner DO [address] [place] [address] documented as of this encounter Goals GoalPatient Goal TypeAssociated ProblemsRecent ProgressPatient-Stated?Author home Jimena Wilson LSW Note: Evaluation of progress towards goal: feeling better documented as of this encounter Visit Diagnoses Not on filedocumented in this encounter Additional Health Concerns AssessmentNoted TimePHQ-9 Depression Total Score: 12:36 PM EDT documented as of this encounter Care Teams Team MemberRelationshipSpecialtyStart DateEnd Date Michael Steiner DO [address] [place] [address] PCP - GeneralInternal Medicine12/17/23documented as of this encounter
--- OUTSIDE RECORDS SUMMARY | 2025-02-23 10:44 | XMS_ITS | Clinical Summary ---
Author Organization [facility] Address [address] [place] [address] Care Team Providers Care Trials Manager Name Role Phone Michael Steiner MD Primary Care Provider [phone] Allergies Active AllergyReactionsCriticalityNoted DateCommentsMorphineHallucinationsMedium 3586GgumxuxszrsTfwazuuqiovXhzc26/12/2014 Swelling of Lip/Tongue/Throat Medications MedicationSigDispense QuantityRefillsLast FilledStart DateEnd DateStatus cyclobenzaprine (Flexeril) 10 MG tablet Take 5 mg by mouth as needed in the morning and 5 mg as needed at noon and 5 mg as needed in the evening for muscle spasms.Active acetaminophen (Tylenol) 325 MG tablet Take 325 mg by mouth every 4 (four) hours if needed for mild painActive albuterol 0.63 MG/3ML nebulizer solution Take 0.63 mg by nebulization every 6 (six) hours if needed for wheezingActive aspirin 81 MG EC tablet Take 81 mg by mouth DailyActive atorvastatin (Lipitor) 80 MG tablet Take 80 mg by mouth DailyActive cholecalciferol (Vitamin D-3) 125 MCG (5000 UT) capsule Take 5,000 Units by mouth DailyActive diclofenac sodium (Voltaren) 1 % gel Apply 2 g topically in the morning and 2 g in the evening and 2 g before bedtime.Active doxepin (SINEquan) 75 MG capsule Take 75 mg by mouth at bedtimeActive empagliflozin (Jardiance) 10 MG Take by mouthActive pantoprazole (ProtoNix) 40 MG EC tablet Take 40 mg by mouth in the morning. Take before meals. Do not crush, chew, or split.Active potassium chloride CR (Klor-Con M20) 20 MEQ ER tablet Take 20 mEq by mouth Daily Do not crush or chew.Active propranolol XL (Innopran XL) 80 MG 24 hr capsule Take 80 mg by mouth at bedtime Do not crush, chew, or split.Active spironolactone (Aldactone) 25 MG tablet Take 25 mg by mouth DailyActive SUMAtriptan (Imitrex) 25 MG tablet Take 25 mg by mouth 1 (one) time if needed for migraine May repeat dose once in 2 hours if no relief. Do not exceed 2 doses in 24 hours.Active torsemide (Demadex) 20 MG tablet Take 20 mg by mouth DailyActive venlafaxine XR (Effexor XR) 75 MG 24 hr capsule Take 75 mg by mouth Daily Do not crush or chew.Active venlafaxine XR (Effexor XR) 150 MG 24 hr capsule Take 150 mg by mouth Daily Do not crush or chew.Active calcitonin, salmon, (Miacalcin) 200 UNIT/ACT nasal spray Administer 1 spray into affected nostril(s) in the morning.09/09/2023ctive cyanocobalamin (Vitamin B-12) 1000 MCG tablet Active pregabalin (Lyrica) 100 MG capsule Take 100 mg by mouth in the morning and 100 mg in the evening.03/07/2024ctive ARIPiprazole (Abilify) 15 MG tablet Take 15 mg by mouth at whvidcj0701/29/2024ctive celecoxib (CeleBREX) 200 MG capsule 02/22/2024ctive hydrOXYzine HCl (Atarax) 25 MG tablet Take 25 mg by mouth Daily02/29/2024ctive clonazePAM (KlonoPIN) 0.5 MG tablet Take 0.5 mg by mouth in the morning and 0.5 mg before bedtime.03/12/2024ctive lamoTRIgine (LaMICtal) 150 MG tablet Take 1 tablet by mouth Daily03/06/2024ctive ezetimibe (Zetia) 10 MG tablet Take 10 mg by mouth in the morning.07/08/2024tive ferrous sulfate 325 (65 Fe) MG tablet TAKE 1 TABLET BY MOUTH TWICE A DAY FOR 30 DAYS for 30Active topiramate (Topamax) 100 MG tablet TAKE 1 TABLET (100 MG TOTAL) BY MOUTH IN THE MORNING AND AT BEDTIME FOR 90 DAYS. 03/30/2024ctive methocarbamol (Robaxin) 750 MG tablet TAKE 1 TABLET BY MOUTH EVERY 12 HOURS FOR 30 DAYS for 30Active albuterol HFA 90 mcg/act inhaler Indications:Chronic obstructive pulmonary disease, unspecified COPD type (HCC) Inhale 2 puffs every 4 (four) hours if needed for wheezing 18 g 5Active Iittrbk-Giyltcluiyu-Lqianvoblv (Breztri Aerosphere) 160-9-4.8 MCG/ACT aerosol Indications:Chronic obstructive pulmonary disease, unspecified COPD type (HCC) Inhale 2 puffs in the morning and 2 puffs before bedtime. 10.7 g 5Active Active Problems ProblemNoted DateDiagnosed DateAcute pulmonary embolism without acute cor rejbjfltf17/03/2024losed wedge compression fracture of T6 vertebra with routine anktlsw1408/28/2023hronic respiratory failure with hypoxia and hypercapnia 07/25/2023annabis use disorder, mild, abuse05/28/2023Major depressive disorder 05/28/2023Morbid (severe) obesity due to excess lzlapciw98/04/2024Muscle weakness (generalized)04/30/2023hronic obstructive pulmonary disease, inusyosxmth85/03/3834Mpqqhkspnqr18/03/2024Iron deficiency anemia, unspecified 04/29/2023Migraine, unspecified, not intractable, without status migrainosus 04/29/2023anic zaxadabt56/03/2024Vitamin D deficiency, kxzbucohlgs66/03/2024 Elhkgxrjueu62/27/2023ipolar 2 disorder, major depressive wsdvviv4410/21/2022ERD (gastroesophageal reflux disease)10/21/2022Essential gdjecvsnzfda05/02/2023Hx of uolopjssjkxjgu05/02/2023OSA treated with BiPAP07/31/2022Liver wkfanqz5304/15/2022 Chronic heart failure with preserved ejection ikzdsyai65/03/2022Hyperglycemia 08/14/2020ow back pain08/14/2020NSTEMI (non-ST elevated myocardial infarction) 01/09/20201463Emolsxb23/03/2016Borderline personality rtayzvqf84/03/2016PTSD (post- traumatic stress disorder)08/28/2015Chronic itfqntvm48/12/2015CAD S/P percutaneous coronary vwyzjffzmfd88/12/2014 Overview (01/22/2024): Dr. Vickers at [facility] in [place] did PCI with bare metal stent placement 03/2010 Resolved Problems ProblemNoted DateDiagnosed DateResolved DateVentricular lodlktbietr10/27/2025 09/20/2024 Overview (09/20/2024): Documented on 08/23/2020 Arthritis of left sacroiliac jointStage 3a chronic kidney qtujlxe33WeaknessObesity with body mass index 30 or polxort28Psoriasis, conhlblvald56/06/2024 03/15/2024Unspecified dementia, mild, without behavioral disturbance, psychotic disturbance, mood disturbance, and swtzinb48OVID-19004/29/2023 03/15/2024ependence on other enabling machines and Personal history of nicotine erqtilsbja68neumonia, unspecified xrlzudwy90olyneuropathy, ggksrvahyuf66/03/2024 03/15/2024resence of aortocoronary bypass graftSolitary pulmonary kfizgv23HyperlipidemiaNicotine qowexyrhnb70Difficulty in walking, not elsewhere classified Former ildems20igarette nicotine dependence in wwvettarz17 Encounters DateTypeDepartmentCare YdmzTexbdeivlwc22/15/2025Telephone [facility] [address] [place] [address] Sydnie Guerrero, DO 01/25/2025Telephone [facility] [address] [place] [phone] Sydnie Guerrero, DO 01/18/2025[facility]phone [facility] [address] [place] [address] Patricia Mcclure MA 01/03/2025Telephone [facility] [address] [place] [phone] Sydnie Guerrero, DO from Last 3 Months Immunizations ImmunizationAdministration DatesNext DuePPD Test05/12/2023,05/12/2023,04/30/2023 ,04/30/2023 Family History Medical HistoryRelationNameCommentsHeart diseaseMotherBettyHyperlipidemiaMother BettyRelationNameStatusCommentsFatherAliveMotherBettyDeceased Social History Tobacco UseTypesPacks/DayYears UsedDateSmoking Tobacco: FormerCigarettesQuit: mokeless Tobacco: Former Tobacco Cessation:Counseling Given: Not Answered Alcohol UseStandard Drinks/WeekCommentsNot Currently0 (1 standard drink = 0.6 oz pure alcohol)CommentsUnknownSex and Gender InformationValueDate Recorded Sex Assigned at BirthNot on fileLegal AaxIczcou75/15/2023 11:01 PM EDTGender IdentityNot on fileSexual OrientationNot on file Last Filed Vital Signs Vital SignReadingTime TakenCommentsBlood Vspwrvmb445/7405 3:18 PM EDT Wxynf226909/21/2024 3:18 PM EDTTemperature--Respiratory Rate--Oxygen Nskfgyudsm07% 09/21/2024 3:18 PM EDTInhaled Oxygen Concentration--Hgnhda759 kg (248 lb 9.6 oz) 09/21/2024 3:18 PM GDYGdwgoj382.3 cm (5' 9 )09/21/2024 3:18 PM EDTBody Mass Index36.71009/21/2024 3:18 PM EDT Plan of Treatment DateTypeDepartmentCare Team (Latest Contact Info)Zjlelqgwxlq15/12/2025 3:15 PM ESTOffice Visit [facility] [address] [place] [address] Sydnie Guerrero, DO [address] [place] [address] Insurance Care Teams Team MemberRelationshipSpecialtyStart DateEnd Date Michael Steiner MD PCP - GeneralInternal Medicine08/11/23
--- OUTSIDE RECORDS SUMMARY | 2025-02-23 10:44 | XMS_ITS | Encounter Summary ---
Author Organization [facility] tem Address [id number] [address] [place] [address] Care Team Providers Care Batch Analyst Name Role Phone Obdulia Michael Janae CABRERA Primary Care Provider [phone] Encounter Details DateTypeDepartmentCare Team (Latest Contact Info)Yxkckwycwir51/17/2025Telephone [facility] [address] [place] [phone] Megan Talley CMA Social History Tobacco UseTypesPacks/DayYears UsedDateSmoking Tobacco: GegtzyDdoawsdoch139 09/1981 - mokeless Tobacco: Never Comments:5-6 cigerettes a da y Alcohol UseStandard Drinks/WeekCommentsNot Currently0 (1 standard drink = 0.6 oz pure alcohol)last use 15 years agoAH UtilitiesAnswerDate RecordedIn the past 12 months has the [employer], gas, oil, or water [employer] threatened to shut off services in your home?No12/04/2024Social Connection and Isolation PanelAnswer Date RecordedIn a typical week, how many times do you talk on the phone with family, friends, or neighbors?Three times a week07/25/2023How often do you get together with friends or relatives?Three times a week07/25/2023How often do you attend cheondoism or pentecostalism services?More than 4 times per year07/25/2023o you belong to any clubs or organizations such as cheondoism groups, unions, fraternal [...] care, and heating?Not very hard 12/04/2024PHQ-2AnswerDate RecordedTotal Tkjdk879Finamerican fork hospital [place] of Occupational Health - Occupational Stress QuestionnaireAnswerDate RecordedDo you feel stress - tense, restless, nervous, or anxious, or unable to sleep at night because yourmind is troubled all the time - these days?Only a zyhque9307/25/2023 Exercise Vital SignAnswerDate RecordedOn average, how many [...] of a household?No12/04/2024hildcareAnswerDate RecordedDo 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 Thank you. * Telephone Encounter - Michael Steiner DO - 02/10/2025 11:05 AM EDT Message noted. Mar 15 is fine * Telephone Encounter - Michael Steiner DO - 02/10/2025 11:05 AM EDT Message noted. Mar 15 is fine documented in this encounter Plan of Treatment DateTypeDepartmentCare Team (Latest Contact Info)Brakufsnynk25/19/2025 1:30 PM ESTOffice Visit [facility] [address] [phone] Michael Steiner DO [address] [place] [address] documented as of this encounter Goals GoalPatient Goal TypeAssociated ProblemsRecent ProgressPatient-Stated?Author home Jimena Wilson LSW Note: Evaluation of progress towards goal: feeling better documented as of this encounter Visit Diagnoses Not on filedocumented in this encounter Additional Health Concerns AssessmentNoted TimePHQ-9 Depression Total Score: 12:36 PM EDT documented as of this encounter Care Teams Team MemberRelationshipSpecialtyStart DateEnd Date Michael Steiner DO [address] [place] [address] PCP - GeneralInternal Medicine12/17/23documented as of this encounter
--- OUTSIDE RECORDS SUMMARY | 2025-02-23 10:44 | XMS_ITS | Encounter Summary ---
Author Organization [employer] tem Address [id number] [address] [place] [address] Care Team Providers Care Nurse Discharge Name Role Phone Michael Steiner DO Primary Care Provider [phone] Encounter Details DateTypeDepartmentCare Team (Latest Contact Info)Ptuzlwbiuvd95/20/2025Travel Social History Tobacco UseTypesPacks/DayYears UsedDateSmoking Tobacco: PzlmnmWwgtyxvros942 09/1981 - mokeless Tobacco: Never Comments:5-6 cigerettes a da y Alcohol UseStandard Drinks/WeekCommentsNot Currently0 (1 standard drink = 0.6 oz pure alcohol)last use 15 years agoAHC UtilitiesAnswerDate RecordedIn the past 12 months has the [employer], gas, oil, or water [employer] threatened to shut off services in your home?No12/04/2024Social Connection and Isolation PanelAnswer Date RecordedIn a typical week, how many times do you talk on the phone with family, friends, or neighbors?Three times a week07/25/2023How often do you get together with friends or relatives?Three times a week07/25/2023How often do you attend oriental orthodox or temple services?More than 4 times per year07/25/2023o you belong to any clubs or organizations such as oriental orthodox groups, unions, [...] care, and heating?Not very hard 12/04/2024PHQ-2AnswerDate RecordedTotal Luumo430Finmountainstar healthcare [place] of Occupational Health - Occupational Stress QuestionnaireAnswerDate RecordedDo you feel stress - tense, restless, nervous, or anxious, or unable to sleep at night because yourmind is troubled all the time - these days?Only a jsbhii0107/25/2023 Exercise Vital SignAnswerDate RecordedOn average, how many [...] part of a household?No12/04/2024hildcareAnswerDate RecordedDo 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 [...] and Gender InformationValue Date RecordedSex Assigned at HgmvwUabmje17/10/2021 8:51 AM EDTLegal SexFemale 02/16/2017 2:26 PM EDTGender ZvdldtobWyaozz35/10/2021 8:51 AM EDTSexual NnqkurzrrsrTeydwvrg21/02/2023 8:29 PM ESTdocumented as of this encounter Plan of Treatment DateTypeDepartmentCare Team (Latest Contact Info)Nixtneioxjo47/19/2025 1:30 PM ESTOffice Visit [facility] [address] [place] [phone] Michael Steiner DO [address] [place] [address] documented as of this encounter Goals GoalPatient Goal TypeAssociated ProblemsRecent ProgressPatient-Stated?Author home Jimena Wilson LSW Note: Evaluation of progress towards goal: feeling better documented as of this encounter Visit Diagnoses Not on filedocumented in this encounter Additional Health Concerns AssessmentNoted TimePHQ-9 Depression Total Score: 12:36 PM EDT documented as of this encounter Care Teams Team MemberRelationshipSpecialtyStart DateEnd Date Michael Steiner DO [address] [place] [address] PCP - GeneralInternal Medicine12/17/23documented as of this encounter
--- NOTE | 2025-02-23 10:45 | PM.CN ---
Consult Note: HPI Data of Consult Patient: known to practice within the last 3 years Consult date: 02/23/25 Requesting Physician: Harper Alvarez NP Primary Care Provider: RAJNI CARDOZO Consult Narrative Reason for consult: back pain Narrative: 64yof who presents for evaluation. worsening bilateral low back pain for past 3 months. became worse after a fall. imaging shows multilevel spinal degeneration, stenosis, and sij degeneration. has engaged in a series of provider directed home exercises >6 weeks, without benefit. uses celebrex 100mg bid and tylenol. denies adverse med side effects. pt interested in restarting gabapentin. pain today 7/10 in thoracic spine and ribs, notes burning stabbing pain increasing with standing, walking, activity. notes mild improvement with lying down. denies falls/injury. pt states she has a longstanding hx of thoracic pain >25 years secondary to fractured spine and compressed discs, no available imaging. recently underwent bilateral L5-S1 TFESI with 100% improvement per pt. cc:: CC: Harper Alvarez NP [facility] Medical History Rheumatoid arthritis ?M06.9 - Rheumatoid arthritis, unspecified (ICD-10) Anemia ?D64.9 - Anemia, unspecified (ICD-10) Panic disorder ?F41.0 - Panic disorder [episodic paroxysmal anxiety] (ICD-10) PTSD (post-traumatic stress disorder) ?F43.10 - Post-traumatic stress disorder, unspecified (ICD-10) Bipolar 1 disorder ?F31.9 - Bipolar disorder, unspecified (ICD-10) Anxiety ?F41.9 - Anxiety disorder, unspecified (ICD-10) Acid reflux ?K21.9 - Gastro-esophageal reflux disease without esophagitis (ICD-10) BONY treated with BiPAP ?G47.33 - Obstructive sleep apnea (adult) (pediatric) (ICD-10) Sleep apnea ?G47.30 - Sleep apnea, unspecified (ICD-10) COPD (chronic obstructive pulmonary disease) ?J44.9 - Chronic obstructive pulmonary disease, unspecified (ICD-10) CHF (congestive heart failure) ?I50.9 - Heart failure, unspecified (ICD-10) Angina at rest ?I20.89 - Other forms of angina pectoris (ICD-10) Heart attack ?I21.9 - Acute myocardial infarction, unspecified (ICD-10) Surgical History Stented coronary artery ?Z95.5 - Presence of coronary angioplasty implant and graft (ICD-10) Hx of cholecystectomy ?Z90.49 - Acquired absence of other specified parts of digestive tract (ICD-10) H/O section ?Z98.891 - History of uterine scar from previous surgery (ICD-10) Hx of CABG ?Z95.1 - Presence of aortocoronary bypass graft (ICD-10) Meds Home Medications and Allergies Home Medications ?Medication ?Instructions ?Recorded ?Confirmed ?Type clonazepam 0.5 mg tablet 1 mg PO DAILY 02/23/24 02/13/25 History doxepin 100 mg capsule 75 mg PO DAILY 02/23/24 02/13/25 History empagliflozin 10 mg tablet 10 mg PO DAILY 02/23/24 02/13/25 History (Jardiance) topiramate 100 mg tablet (Topamax) 100 mg PO BID 02/23/24 02/13/25 History torsemide 40 mg tablet 160 mg PO DAILY 02/23/24 02/13/25 History albuterol sulfate 90 mcg/actuation 1 puff inhalation Q4H PRN 02/24/24 02/13/25 History aerosol inhaler shortness of breath or wheezing aripiprazole 15 mg tablet 15 mg PO BEDTIME 02/24/24 02/13/25 History budesonide 160 mcg-glycopyr 9 2 inh inhalation BID 02/24/24 02/13/25 History mcg-formot 4.8 mcg/actuation HFA inhaler (Breztri Aerosphere) lamotrigine 150 mg tablet 150 mg PO DAILY 02/24/24 02/13/25 History pantoprazole 40 mg tablet,delayed 40 mg PO DAILY 02/24/24 02/13/25 History release potassium chloride 20 mEq 20 meq PO DAILY 02/24/24 02/13/25 History tablet,extended release spironolactone 25 mg tablet 25 mg PO DAILY 02/24/24 02/13/25 History hydroxyzine HCl 25 mg tablet mg 11/14/24 History Allergies Allergy/AdvReac Type Severity Reaction Status Date / Time Penicillins Allergy Unknown Unknown Verified 02/13/25 11:16 Exam Constitutional Documenting provider has reviewed patient's vital signs: yes Common normals: no apparent distress, oriented x3, healthy appearing, alert and well nourished General appearance: cooperative HENMT Common normals: normocephalic, hearing grossly normal bilaterally and moist oral mucous membranes Head and scalp: normocephalic Eye Common normals: PERRL Pupil: PERRL Neck & C-Spine Common normals: full ROM General: normal visual inspection Chest Common normals: inspection of chest normal Respiratory Common normals: normal respiratory effort, no retractions and no use of accessory muscles Back & Pelvis Thoracic spine/upper back: ROM limited, pain with ROM and thoracic spinal tenderness Lumbar spine/lower back: straight leg raise negative bilaterally; ROM not limited and no pain with ROM Other: strength 5/5 in BLE multilevel thoracic tenderness, intercostal neuralgia, and radiculopathy noted T4-9 Neuro Common normals: oriented x3 Sensorium/orientation: alert Psych Common normals: mental status grossly normal, thought process normal, cooperative, affect normal, speech normal and activity/motor behavior normal Speech: normal speech Thought process: normal thought process Results Additional Findings Additional findings: If on a controlled substance or opioids, I have checked an OARRS report on this patient and there are no aberrancies noted in the prescribing history.??If on a controlled substance or opioid a drug screen was completed and reviewed within the last year, and if there has not been a drug screen completed we ordered one today to monitor higher risk, state monitored pain medication use. As part of providing excellent, safe, comprehensive care, the following was completed at our patient's visit: 1. A medication reconciliation and review to ensure accurate knowledge of current/active medications, including asking our patients to inform us about any ftvb-jwg-dsxygyq medications or herbal remedies/nutritional supplements/alternative remedies. 2. A review to specifically ensure our patients have had annual screening for screening for depression, screening for tobacco use, and screening for unhealthy alcohol use. For concerning screenings had a discussion with the patient, provided patient education, and recommended follow-up with primary care provider when appropriate. If patient noted with a risk of falling, they received education on strength, gait, and balance training to prevent future risk of falling. Portions of this note may have been carried over from the previous visit and updated as appropriate. Please note this office utilizes paper charting in addition to the electronic medical record. A list of current medications, vitals, and PMH is available there as the clinical staff outside of myself do not have access to [employer] charting during the clinic day operations. As part of providing quality comprehensive care the current medications, vitals, and PMH were reviewed in the paper chart. Assessment and Plan Assessment and Plan (1) Intercostal neuralgia: (2) Thoracic radiculopathy: (3) Lumbar stenosis with neurogenic claudication: (4) Lumbar spondylosis: Plan The patient has had over 3 months of moderate to severe back pain with functional impairment and inadequate response to conservative care including NSAIDS (unless there are contraindication such as concurrent blood thinners), multiple oral or topical pain medications, and home exercise program/physical therapy.? Patient has completed >6 weeks of guided home exercise program and/or formal physical therapy program without relief of their symptoms.? The Oswestry Disability Index was completed, and the patient scored a 33%.? update thoracic MRI without contrast to assess thoracic pain and radiculopathy restart gabapentin 300mg TID as tolerated, risks vs benefits reviewed continue HEP as tolerated f/u to review thoracic MRI
--- OUTSIDE RECORDS SUMMARY | 2025-02-23 10:45 | XMS_ITS | Clinical Summary ---
Author Organization [facility] Address [id number] [place] [address] Care Team Providers Care Rod Welder Name Role Phone Joansunshine Michael Janae CABRERA Primary Care Provider [phone] Allergies Active AllergyReactionsCriticalityNoted DateCommentsFentanylOther (See Comments) Ildzup5612/15/2024 Terrible dreams MorphineOther (See Comments)03/31/2017 I hallucinate This is not a true allergy KmkprklfsxzGnbawjfntmwMtzd26/12/2014 Other Reaction(s): Swelling of Lip/Tongue/Throat Medications MedicationSigDispense QuantityRefillsLast FilledStart DateEnd DateStatus cholecalciferol, vitamin D3, 5,000 units tablet Take 2 tablets (10,000 Units total) by mouth in the morning.Active albuterol (ACCUNEB) 0.63 mg/3 mL nebulizer solution Inhale 3 mL (0.63 mg total) by nebulization every 6 (six) hours as needed for wheezing.Active albuterol (PROVENTIL HFA;VENTOLIN HFA) 90 mcg/actuation inhaler Active ARIPiprazole (ABILIFY) 15 mg tablet Take 1 tablet (15 mg total) by mouth nightly.05/13/2023ctive doxepin (SINEquan) 75 mg capsule Active uyawkffyga-xeqoguws-xqoiukdobc (BREZTRI AEROSPHERE) 160-9-4.8 mcg/actuation HFA aerosol inhaler Indications:Chronic obstructive pulmonary disease, unspecified COPD type ([facility])Inhale 2 puffs in the morning and 2 puffs before bedtime. 10.7 g 4Active acetaminophen (TYLENOL) 325 mg tablet Take 2 tablets (650 mg total) by mouth every 4 (four) hours as needed for pain or headaches. 30 tablet 4Active clonazePAM (KlonoPIN) 0.5 mg tablet Take 1 tablet (0.5 mg total) by mouth in the morning and 1 tablet (0.5 mg total) before bedtime.4Active lamoTRIgine (LaMICtal) 150 mg tablet Take 1 tablet (150 mg total) by mouth in the morning.4Active atorvastatin (LIPITOR) 80 mg tablet Indications:Atherosclerosis of [place] coronary artery of [place] heart without angina pectoris,Hx of hyperlipidemiaTake 1 tablet (80 mg total) by mouth in the morning. 90 tablet 4Active empagliflozin (JARDIANCE) 10 mg tablet tablet Indications:Chronic heart failure with preserved ejection fraction ([facility]), Atherosclerosis of [place] coronary artery of [place] heart without angina pectorisTake 1 tablet (10 mg total) by mouth in the morning. TAKE 1 TABLET (10 MG TOTAL) BY MOUTH IN THE MORNING. 90 tablet 5Active cyanocobalamin 1000 MCG tablet Take 1 tablet (1,000 mcg total) by mouth in the morning.Active TRINTELLIX 10 mg tablet Take 1 tablet (10 mg total) by mouth in the morning.5Active pantoprazole (PROTONIX) 40 mg EC tablet Indications:Gastro-esophageal reflux disease without esophagitisTake 1 tablet (40 mg total) by mouth every morning before breakfast. 90 tablet 5Active oxygen Inhale 2 L/min continuously.Active metoprolol succinate XL (TOPROL XL) 25 mg 24 hr tablet Indications:Chronic heart failure with preserved ejection fraction ([facility]), Pulmonary hypertension ([facility]),Nonrheumatic tricuspid valve regurgitation, Essential hypertension,Atherosclerosis of [place] coronary artery of [place] heart without angina pectoris,History of four vessel coronary artery bypass graft, NSTEMI (non-ST elevated myocardial infarction) ([facility])Take 1 tablet (25 mg total) by mouth nightly. 30 tablet 5Active guaiFENesin (MUCINEX) 600 mg tablet extended release 12hr Take 1 tablet (600 mg total) by mouth every 12 (twelve) hours. 14 tablet 5Active Additional Information Patient not taking.Reported on 02/06/2025 hydrOXYzine (ATARAX) 25 mg tablet Take 1 tablet (25 mg total) by mouth 2 (two) times a day as needed for anxiety. 12/06/2024tive pregabalin (LYRICA) 100 mg capsule Indications:Peripheral polyneuropathyTake 1 capsule (100 mg total) by mouth before bedtime.5Active Additional Information Patient not taking.Reported on 02/06/2025 ezetimibe (ZETIA) 10 mg tablet Indications:Atherosclerotic heart disease of [place] coronary artery with other forms of angina pectorisTAKE 1 TABLET (10 MG TOTAL) BY MOUTH IN THE MORNING 90 tablet 5Active propranoloL (INDERAL) 40 mg tablet Take 1 tablet (40 mg total) by mouth in the morning and at bedtime. TAKE 1 TABLET (40 MG TOTAL) BY MOUTH IN THE MORNING AND BEFORE KCREDCD76/15/2025Active diclofenac-miSOPROStol (ARTHROTEC 50) 50-200 mg-mcg EC tablet Take 1 tablet by mouth in the morning and 1 tablet before bedtime. 60 tablet 5Active cdzycm-falqmydnq-wht,al-simeth (FIRST-MOUTHWASH BLM) 30-458-446-40 mg/30mL mouthwash Indications:StomatitisTake 5 mL by mouth 4 (four) times a day as needed for mucositis or mouth/gum irritation. 119 mL 5Active spironolactone (ALDACTONE) 25 mg tablet Indications:Chronic diastolic heart failure (CMS-HCC)Take 1 tablet (25 mg total) by mouth in the morning. 90 tablet 5Active valsartan (DIOVAN) 40 mg tablet Indications:Chronic diastolic heart failure (CMS-HCC),Pulmonary hypertension (CMS-HCC)Take 1 tablet (40 mg total) by mouth in the morning. 30 tablet 5Active ondansetron ODT (ZOFRAN ODT) 4 mg disintegrating tablet Dissolve 1 tablet (4 mg total) on tongue every 8 (eight) hours as needed for nausea for up to 10 doses. 10 tablet 5Active potassium chloride (K-TAB,KLOR-CON) 20 mEq CR tablet Take 1 tablet (20 mEq total) by mouth in the morning. 30 tablet tive torsemide (DEMADEX) 20 mg tablet Indications:Chronic diastolic heart failure (CMS-HCC)Take 4 tablets (80 mg total) by mouth daily. 120 tablet tive spironolactone (ALDACTONE) 25 mg tablet Indications:Shortness of breath,Chronic heart failure with preserved ejection fraction (CMS-HCC)Take 1 tablet (25 mg total) by mouth in the morning. 90 tablet /Discontinued(Reorder) torsemide (DEMADEX) 10 mg tablet Take 3 tablets (30 mg total) by mouth daily.Discontinued torsemide (DEMADEX) 20 mg tablet Indications:Chronic diastolic heart failure (CMS-HCC)Take 2 tablets (40 mg total) by mouth daily. 60 tablet Discontinued Active Problems ProblemNoted DateDiagnosed DateEsophageal ulcer01/04/2025ute on chronic respiratory failure with hypoxia and mzjzbznhmae65/10/2025History of four vessel coronary artery bypass graft11/28/2024Pulmonary wsuaxoamougy71/04/2025 Nonrheumatic tricuspid valve qodhtsboyhcbr14/04/2025rthritis of left sacroiliac joint07/07/2024Stage 3a chronic kidney ntszcix1207/07/2024losed wedge compression fracture of T6 vertebra with routine uznufye8308/28/2023hronic respiratory failure with hypoxia and ofpnkkpsxnq17/30/2024Major depressive disorder 05/28/2023anic stjefuei99/01/2024hronic obstructive pulmonary disease 04/29/2023Iron deficiency fvvxhc6204/29/2023Gastroesophageal reflux disease without vhyxpwmdkwj29/03/3478Pipgpubkgwk06/27/7414Bamuarf73/27/2023hipped tooth 10/21/2022ERD (gastroesophageal reflux disease)10/21/2022Osteoarthritis 10/21/2022 Overview (10/21/2022): Apr 2009, swith stent placement Posttraumatic stress eimveatb14/27/2023ipolar 2 disorder, major depressive ppbxlzg1810/21/2022Essential gkfrpxevjrgf72/02/2023Hx of imxddmyigwybuy11/02/2023 Former uztrqu6909/26/2022Obstructive sleep apnea fxhptfad02/06/2023epressive pchhgivg76/20/2022Liver obuufow8104/15/2022Visual /20/2022 Overview (04/15/2022): glasses Chronic heart failure with preserved ejection rpyuvisu82/03/2022igarette nicotine dependence in zioxuehoa34/22/2875Slpcsemdlsyah2021ow back pain 08/14/2020therosclerosis of coronary artery without angina akmwcjcv70/05/2021 Obesity (BMI 30-39.9)01/30/2020NSTEMI (non-ST elevated myocardial infarction) 01/09/2020 Resolved Problems ProblemNoted DateDiagnosed DateResolved DateAcute hypoxic on chronic hypercapnic respiratory kefgblw12/5BMI 40.0-44.9, adult/ Cannabis use disorder, mild, abuse/OVID-19106/16/2022 4Acute respiratory failure with hypoxia and disksywkfvl59/19/2023 05/18/2023iPAP (biphasic positive airway pressure) bojkyjiran16/27/2023 11/06/2022anic vdmytxvj85/ Overview (04/15/2022): Apr 2009, swith stent placement Shortness of lynajw53/09/2023Hypotension due to ppucebsrbym33/20/2021 11/05/2021SCVD (arteriosclerotic cardiovascular disease)/11/2022 Encounters DateTypeDepartmentCare WoqkVzkcszxhdal00/29/2025 3:15 PM EDT - 02/22/2025 5:54 PM EDTEmergency [facility] [address] [place] [address] Fernando Torres MD Right upper quadrant abdominal pain (Primary Dx) Discharge Disposition: Home02/22/20252329Klpank38/27/2025Results Follow-Up [facility] [address] [place] [address] Kacey Sims RN Basic Metabolic Panel02/20/20258712Lavrkt61/20/8128Uogdpr67/17/2025Telephone [facility] Internal Medicine - Family Medicine [address] [place] [address] Megan Talley, [facility] 02/09/2025 2:10 PM EDT - 02/09/2025 2:15 PM EDTEmergency [facility] - Emergency [address] [place] [address] Kunal Mims MD Abdominal pain, unspecified abdominal location (Primary Dx) Discharge Disposition: Home02/09/20251023Ratzjz80/13/2025 12:00 PM EDTOffice Visit [facility] [address] [place] [address] Risa Summers MD Chronic diastolic heart failure (CMS-HCC) (Primary Dx); Pulmonary hypertension ([facility]); Nonrheumatic tricuspid valve excqjnwnbvrjo10/13/2025Telephone [facility] Internal Medicine - Family Medicine [address] [place] [address] Tosin Reyes CMA 02/06/2025Telephone [facility] - Heart Failure Clinic [address] [place] [address] Antoinette Sanchez CNA 02/03/2025Telephone [facility] [address] [place] [id number] Antoinette Sanchez CNA 01/10/2025Telephone [facility] Internal Medicine - Family Medicine [address] [place] [address] Megan Talley, ELIAN 01/10/2025Orders Only [facility] Internal Medicine - Family Medicine [address] [place] [address] Michael Steiner, DO Stomatitis (Primary Dx)01/09/2025Results Follow-Up [facility] - Endoscopy [address] [place] [address] Michael Steiner, DO Surgical Dfyvhsgku40/10/2025 10:00 AM EDT - 01/04/2025 11:00 AM EDTSurgery [facility] - Endoscopy [address] [place] [address] Michael Steiner, DO ESOPHAGOGASTRODUODENOSCOPY DIAGNOSTIC [[id number] (CPT??)]01/04/2025 8:57 AM EDT - 01/04/2025 10:46 AM EDTHospital Encounter [facility] - Endoscopy [address] [place] [address] Michael Steiner, DO Ulcer of esophagus without bleeding (Primary Dx); Hiatal hernia; Microcytic anemia Discharge Disposition: Home01/04/20258521Lgaxqg70/09/2025 3:50 PM EDTSupport Visit [facility] - Pre Admit [address] [place] [address] 12/28/2024Results Follow-Up [facility] - Heart Failure Clinic [address] [place] [address] Kacey Sims RN Basic Metabolic Panel12/28/20247413Nfzjeb34/03/2025Refill [facility] Internal Medicine - Family Medicine [address] [place] [address] Michael Steiner, DO Atherosclerotic heart disease of [place] coronary artery with other forms of angina fxobboze78/02/9030Ijrpat35/27/2025 7:28 AM EDT - 12/21/2024 11:59 PM EDT Hospital Encounter [facility] - Cardiovascular [address] [place] [address] Inez Cook, 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 Chronic heart failure with preserved ejection fraction ([facility]); Pulmonary hypertension ([facility]); Nonrheumatic tricuspid valve regurgitation; Essential hypertension; Atherosclerosis of [place] coronary artery of [place] heart without angina pectoris; History of four vessel coronary artery bypass graft; NSTEMI (non-ST elevated myocardial infarction) ([facility]) Discharge Disposition: Home12/21/2024Telephone [facility] Internal Medicine - Family Medicine [address] [place] [address] Juan Diego Esquivel CMA 12/21/20242909Fwnotj84/26/2025Hospital Encounter [facility] - Endoscopy [address] [place] [address] Michael Steiner, Microcytic anemia (Primary Dx)12/19/2024 2:40 PM EDTSupport Visit [facility] - Pre Admit [address] [place] [address] 12/15/2024 12:30 PM EDTOffice Visit [facility] Internal Medicine - Family Medicine [address] [place] [address] Michael Steiner, Microcytic anemia (Primary Dx); Gastro-esophageal reflux disease without esophagitis; Stage 3a chronic kidney disease ([facility]); Spinal stenosis of lumbar region with neurogenic jaupgwuswnqa14/21/2025Results Follow-Up [facility] Internal Medicine - Family Medicine [address] [place] [address] Michael Steiner, Basic Metabolic Panel12/15/2024Telephone [facility] Internal Medicine - Family Medicine [address] [place] [address] Sofya Coe CMA 12/14/20249452Hkqxsd33/18/2025Results Follow-Up [facility] Heart Failure [facility] [address] [place] [place] [address] Kacey Sims RN Basic Metabolic Panel12/12/20246948Pspokl85/14/2025Telephone [facility] Internal Medicine - Family Medicine [address] [place] [address] Liz Norman RN Transition Of Care12/04/2024 6:44 AM EDT - 12/06/2024 11:45 AM EDTHospital Encounter [facility] [address] [place] [address] Patrick Bal DO Yuhas, John L, Acute on chronic respiratory failure with hypoxia and hypercapnia (CMS-HCC) (Primary Dx); Pneumonia due to infectious organism, unspecified laterality, unspecified part of lung; Peripheral polyneuropathy; Pulmonary hypertension (CMS-HCC); Chronic respiratory failure with hypoxia and hypercapnia (CMS-HCC); Stage 3a chronic kidney disease (CMS-HCC) Discharge Disposition: Home Grvixl9812/04/20248863Ssovmh03/09/2025 2:49 AM EDT - 12/03/2024 8:05 AM EDTHospital Encounter [facility] [address] [facility] [place] [address] Cristhian Garrido MD Yuhas, John L, DO Acute hypoxic on chronic hypercapnic respiratory failure ([facility]) (Primary Dx); KUSUM (acute kidney injury); Pneumonia of right lung due to infectious organism, unspecified part of lung Discharge Disposition: Left Against Medical Advice or Discontinued Care 12/03/20244482Lmrmkb77/06/2025Results Follow-Up [facility] Failure [facility] [address] [place] [address] Kacey Sims, RN Basic Metabolic Panel, Echo complete W/O weccwtsw05/05/2025Results Follow-Up [facility] Internal Medicine - Family Medicine [address] [place] [address] Michael Steiner, DO X-ray knee right 3 views11/29/20242631Lxmrku42/04/2025 3:17 PM EDT - 11/28/2024 11:59 PM EDTHospital Encounter [facility] - Radiology [address] [facility] [address] Michael Steiner, DO Patellar tendinitis of right knee Discharge Disposition: Home11/28/2024 2:00 PM EDTOffice Visit [facility] - Heart Failure Clinic [address] [place] [address] Inez Cook, 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 [address] [address] Michael Steiner, Peripheral polyneuropathyfrom Last 3 Months Immunizations ImmunizationAdministration DatesNext DuePPD Test05/12/2023,04/30/2023Tuberculin Skin Test; Unspecified Btbzpkeoieb42/16/2024,04/30/2023 Family History Medical HistoryRelationNameCommentsAlcohol abuseFatherDementiaFatherCancer Maternal GrandmotherCervical cancerMaternal GrandmotherDepressionMotherHeart failureMotherHypertensionMotherBreast cancerNeg HxRelationNameStatusComments Brother 1AliveBrother 2AliveFatherDeceasedMaternal GrandfatherDeceasedMaternal GrandmotherDeceasedMotherDeceasedPaternal GrandfatherDeceasedPaternal GrandmotherDeceased Social History Tobacco UseTypesPacks/DayYears UsedDateSmoking Tobacco: TxclwnLctbxkuxsl996 09/1981 - mokeless Tobacco: Never Tobacco Cessation:Counseling Given: Not Answered Comments:5-6 cigerettes a day Alcohol UseStandard Drinks/WeekCommentsNot Currently0 (1 standard drink = 0.6 oz pure alcohol)last use 15 years agoAH UtilitiesAnswerDate RecordedIn the past 12 months has the [employer], gas, oil, or water Check threatened to shut off services in your home?No12/04/2024Social Connection and Isolation PanelAnswer Date RecordedIn a typical week, how many times do you talk on the phone with family, friends, or neighbors?Three times a week07/25/2023How often do you get together with friends or relatives?Three times a week07/25/2023How often do you attend amish or catholic services?More than 4 times per year07/25/2023o you belong to any clubs or organizations such as amish groups, unions, fraternal [...] care, and heating?Not very hard 12/04/2024PHQ-2AnswerDate RecordedTotal Bugug134Finmountain west medical center [place] of Occupational Health - Occupational Stress QuestionnaireAnswerDate RecordedDo you feel stress - tense, restless, nervous, or anxious, or unable to sleep at night because yourmind is troubled all the time - these days?Only a tpawxc0607/25/2023 Exercise Vital SignAnswerDate RecordedOn average, how many [...] part of a household?No12/04/2024hildcareAnswerDate RecordedDo problems getting children's 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 make 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 to work [...] and Gender InformationValue Date RecordedSex Assigned at JtqniZbzqna45/10/2021 8:51 AM EDTLegal SexFemale 02/16/2017 2:26 PM EDTGender GvjkrauvYjfhjw12/10/2021 8:51 AM EDTSexual QpncomhhhntFhknudiq94/02/2023 8:29 PM EST Last Filed Vital Signs Vital SignReadingTime TakenCommentsBlood Svlsqxww643/6310 5:45 PM EDT Eyfny825702/22/2025 5:45 PM JEHWgmupyxmjfx49.7 ??C (98.1 ??F)02/22/2025 2:45 PM EDTRespiratory Cpti6241 2:45 PM EDTOxygen Fjqqrocecw92%02/22/2025 5:45 PM EDTInhaled Oxygen Concentration--Ebhbij922.8 kg (231 lb)02/22/2025 2:45 PM HCUJrpntg692.3 cm (5' 9 )02/22/2025 2:45 PM EDTBody Mass Index34.111 2:45 PM EDT Plan of Treatment DateTypeDepartmentCare Team (Latest Contact Info)Fhsdvvyuvna76/19/2025 1:30 PM ESTOffice Visit [facility] [address] [place] [address] Michael Steiner, [address] [place] [address] Health MaintenanceDue DateLast DoneCommentsDiabetic Ophthalmology Exam1962 Adult BMI Follow Up Plan1980Diabetic Foot Exam1980DTaP,Tdap and Td Vaccines (1 - Tdap)1981Pap Smear51, 02/18/2022Zoster (Shingles) Vaccine (1 of 2)03/07/2025Postponed from 2012 (Patient Refused) Statin Use: Ndseflgzbexzvt34/31/790963Statin Use: Zzdntjrl83/31/2025 04/26/2024epression Tvyfqkrku99/dult BMI Okatthjvq61/29/2026 02/22/2025Tobacco Phsstfucy46Influenza VaccineDiscontinued Goals GoalPatient Goal TypeAssociated ProblemsRecent ProgressPatient-Stated?Author home Jimena Wilson LSW Note: Evaluation of progress towards goal: feeling better Medical Devices ImplantedTypeAreaManufacturerDevice IdentifierShelf Expiration DateModel / Serial / LotDes Xience Jocelin 2.75x28 Rx - [id number] Implanted:Qty: 1 on 01/09/2020 by Yefri Khan MD at [facility]/A: ArterialABBOTT [id number] / / [id number] Xience Jocelin 2.75x8 Rx - [id number] Implanted:Qty: 1 on 01/09/2020 by Yefri Khan MD at [facility]/A: ArterialABBOTT [id number] / / [id number] Procedures Procedure NamePriorityDate/TimeAssociated DiagnosisCommentsPOCT NURSING URINE MACROSCOPIC RXAfdesjz77/29/2025 5:26 PM EDT ER EXTRA URINE QADJBPHWEL56/29/2025 5:18 PM EDT ER EXTRA URINE QAEBBNKWTTY28/29/2025 5:18 PM EDT ER EXTRA KPXUBFSNM04/29/2025 5:[address] ABDOMEN AND PELVIS W PVRCRCDH98/29/2025 3:46 PM EDT EXTRA TUBES SST VMGAdiwfel50/29/2025 3:40 PM EDT EXTRA TUBES BLUE QWUJtlznbm19/29/2025 3:40 PM EDT EXTRA YSBREFeoanud24/29/2025 3:40 PM EDT LACTATE W/ PVGYNIMKPW69/29/2025 3:40 PM EDT NLEAWDACQWQZZ46/29/2025 3:40 PM EDT UOQEKKOSEP64/29/2025 3:40 PM EDT COMPREHENSIVE METABOLIC EILUNFNZK28/29/2025 3:40 PM EDT CBC WITH AUTO QTPJWTGBRVJAOJYZ95/29/2025 3:40 PM EDT BASIC METABOLIC PTILYZzfvusm20/27/2025 9:08 AM EDT Chronic diastolic heart failure (CMS-HCC) Pulmonary hypertension (CMS-HCC) Nonrheumatic tricuspid valve regurgitation CT ABDOMEN AND PELVIS W YJJYDQST57/16/2025 3:32 PM EDT EXTRA TUBES BLUE DRYCmnsmnx67/16/2025 2:24 PM EDT EXTRA CTHHJRwhceac67/16/2025 2:24 PM EDT BGMREGRFNM44/16/2025 2:24 PM EDT LIVER XNWAIQIBO80/16/2025 2:24 PM EDT BASIC METABOLIC BNUIWJHLK82/16/2025 2:24 PM EDT CBC WITH AUTO NHESKHXTTKEOGTLQ40/16/2025 2:24 PM EDT SURGICAL SJOJOJXDHCbmofug13/10/2025 9:58 AM EDT MI ESOPHAGOGASTRODUODENOSCOPY TRANSORAL JEFZBXYIBD97/10/2025 9:43 AM EDT microcytic anemia BASIC METABOLIC PIXVDJggytjw94/03/2025 8:56 AM EDT Chronic heart failure with preserved ejection fraction (CMS-HCC) ECHO COMPLETE WO WPEIHXZOOwfpxtv88/27/2025 8:11 AM EDT Chronic heart failure with preserved ejection fraction (CMS-HCC) Pulmonary hypertension (CMS-HCC) Nonrheumatic tricuspid valve regurgitation Essential hypertension Atherosclerosis of [place] coronary artery of [place] heart without angina pectoris History of four vessel coronary artery bypass graft NSTEMI (non-ST elevated myocardial infarction) (CMS-HCC) BASIC METABOLIC XHUQSCbdqmoq04/21/2025 1:10 PM EDT Stage 3a chronic kidney disease ([facility]) ADMIT TO MKJJNXYSKVsehthb08/20/2025 12:55 PM EDTBASIC METABOLIC PANELRoutine 12/12/2024 8:32 AM EDT Chronic heart failure with preserved ejection fraction ([facility]) Essential hypertension Pulmonary hypertension ([facility]) Nonrheumatic tricuspid valve regurgitation Atherosclerosis of [place] coronary artery of [place] heart without angina pectoris History of four vessel coronary artery bypass graft BLOOD GAS, BIGVCXCmwbzim05/12/2025 8:48 AM EDT EXTRA TUBES PST QZOUutyvgu42/12/2025 5:58 AM EDT EXTRA TUBES LAVENDER AEIIxrybrc35/12/2025 5:58 AM EDT EXTRA TUBES BLUE EBRBtojalt85/12/2025 5:58 AM EDT EXTRA WDUKTBhnfdmr21/12/2025 5:58 AM EDT EXTRA XROURFejzkgf66/12/2025 5:58 AM EDT KCETVZPNNHRvbyxea60/12/2025 5:58 AM EDT BASIC METABOLIC HQAJBZijqngo28/12/2025 5:58 AM EDT LOWER RESP CULTURE SPUTUM CULTURE INC GRAM HBMKGBohmqfh12/11/2025 10:28 PM EDT BEDSIDE KAERNMSNwqwveo52/11/2025 6:04 PM EDT BEDSIDE TCDUVPQIfmxprm43/11/2025 11:23 AM EDT BIPAP/CPAP/OYLHWZAWfpfcvy76/11/2025 11:12 AM EDTBLOOD GAS, VENOUSRoutine 12/05/2024 9:21 AM EDT EXTRA TUBES BLUE ZJEKcgkzqh88/11/2025 4:28 AM EDT EXTRA UJXGUOdgsirs43/11/2025 4:28 AM EDT OWTWTNGRSYWjufxix96/11/2025 4:28 AM EDT CBC WITH AUTO WLKZPNOSYWKEVgkhjpr12/11/2025 4:28 AM EDT BASIC METABOLIC OQEXHRtnxfsv48/11/2025 4:28 AM EDT BEDSIDE NFYZKTORwnhbsg39/10/2025 8:45 PM EDT BEDSIDE AMMTONIWoavyxo56/10/2025 5:19 PM EDT BEDSIDE DDQSXUFAqooyhq13/10/2025 4:33 PM EDT BLOOD GAS, JXJRJKLymsgds18/10/2025 1:28 PM EDT BEDSIDE MMAPDOCTwanavy38/10/2025 11:55 AM EDT PULSE OXIMETRY, ZCOHAbfavph56/10/2025 9:31 AM EDTTROP I, HIGH SENSITIVITY 1 HOUR STAT12/04/2024 8:23 AM EDT PM ED CRITICAL LWBMVvgogou48/10/2025 8:15 AM EDT BLOOD GAS, UHNMLEDSKC30/10/2025 7:16 AM EDT EXTRA TUBES BLUE DXAFaubupr88/10/2025 7:15 AM EDT EXTRA AVRYMAkvhjei11/10/2025 7:15 AM EDT PROCALCITONINAdd-On12/04/2024 7:14 AM EDT PHOSPHORUSAdd-On12/04/2024 7:14 AM EDT TROPONIN I, HIGH SENSITIVITY 0 EVMVEWJN29/10/2025 7:14 AM EDT CBC WITH AUTO LQYDQGEMSONIPKLO44/10/2025 7:14 AM EDT B-TYPE NATRIURETIC WGEEMFTJJPX15/10/2025 7:14 AM EDT LACTATE W/ BJICPYAYIP32/10/2025 7:14 AM EDT TROPONIN I, HIGH SENSITIVITY 0 QHLKMYQE72/10/2025 7:14 AM EDT COMPREHENSIVE METABOLIC AQSSARVYI45/10/2025 7:14 AM EDT XR CHEST 1 UBYDUF7012/04/2024 7:11 AM EDT BIPAP/CPAP/GSAYGBFSaczjsi30/10/2025 6:52 AM EDTECG 12-KYPQKLRG24/10/2025 6:48 AM EDT PULSE OXIMETRY, LTDPXamouua01/09/2025 6:37 AM EDTTROP I, HIGH SENSITIVITY 1 HOUR STAT12/03/2024 4:[address] CTA FVIPTEWCM12/09/2025 4:02 AM EDT RUYXYOBEUHMRiszrdd70/09/2025 3:55 AM EDTBLOOD ERHNYHWQQJK99/09/2025 3:47 AM EDT XR CHEST 1 CNULLT8712/03/2024 3:19 AM EDT BLOOD GAS, IPESRKKRDB26/09/2025 3:16 AM EDT EXTRA TUBES SST OAFRpepccc71/09/2025 3:09 AM EDT EXTRA TUBES BLUE WBKTxkjsoa60/09/2025 3:09 AM EDT EXTRA YJKWEUhjemcw00/09/2025 3:09 AM EDT LACTATE W/ ZPJFGHLNEW38/09/2025 3:09 AM EDT B-TYPE NATRIURETIC WJIOPEQZGBS25/09/2025 3:09 AM EDT CBC WITH AUTO IMAGAFEKUPHMJRME49/09/2025 3:09 AM EDT BLOOD TWYDVUPBRDW22/09/2025 3:09 AM EDT TROPONIN I, HIGH SENSITIVITY 0 ZUKGNFFP88/09/2025 3:08 AM EDT TROPONIN I, HIGH SENSITIVITY 0 SWEOFTFE35/09/2025 3:08 AM EDT COMPREHENSIVE METABOLIC YEPTJXGMM64/09/2025 3:08 AM EDT ECG 12-GWESFTKX58/09/2025 2:51 AM EDT BASIC METABOLIC GMCTFMbxnfmb67/05/2025 1:01 PM EDT Chronic heart failure with preserved ejection fraction (CMS-HCC) Pulmonary hypertension (CMS-HCC) Nonrheumatic tricuspid valve regurgitation Essential hypertension Atherosclerosis of [place] coronary artery of [place] heart without angina pectoris History of four vessel coronary artery bypass graft NSTEMI (non-ST elevated myocardial infarction) ([facility]-HCC) XR KNEE RT 3 JKIXyiwjvq25/04/2025 3:37 PM EDT Patellar tendinitis of right knee PAP DWBLBYdnrbds42/25/2022 10:08 AM EDT Encounter for screening for malignant neoplasm of cervix Encounter for screening for human papillomavirus (HPV) from Last 3 Months or Most Recently Relevant to Health Maintenance Results * (ABNORMAL) POCT Nursing Urine Macroscopic UA (02/22/2025 5:26 PM EDT)Component ValueRef RangeTest MethodAnalysis TimePerformed AtPathologist [facility] Urine Specific Gravity1.0101.010, 1.015, 1.020, 1.5524702/22/2025 5:27 PM EDT [facility] Urine Leukocyte EsteraseNegative Arracaaw50/29/2025 5:27 PM [facility] Urine RmloylcPmwmlpsiSmlqsxku00/29/2025 5:[address] [facility] Urine pH5.55.0, 6.0, 6.5, 7.0, 7.5, 8.0, 8.5, 5. 5:27 PM ED[facility] Urine ProteinNegativeNegative 02/22/2025 5:[address] [facility] Urine Xvtguic044 mg/dL(A)Qknjjsjy92/29/2025 5:27 PM ED[facility] Urine TzylpykVonywmywQcrhdotq92/29/2025 5:[address] [facility] Urine Urobilinogen0.2 E.U./dL02/22/2025 5:[address] [facility] Urine ElnfgxhjnLwjyzrwzYaypvdql09/29/2025 5:[address] [facility] Urine Blood/HGBTrace(A)Negative 02/22/2025 5:27 PM [facility] (Source) Anatomical Location / LateralityCollection Method / VolumeCollection Time Received MppkEhvgc63/29/2025 5:26 PM EDT1 5:26 PM EDT Narrative Authorizing ProviderResult TypeResult StatusPahuseyin Torres MDPOINT OF CARE TEST ORDERABLESFinal ResultPerforming OrganizationAddressCity/State/ZIP CodePhone Number [facility] [address] [place] [address], * Extra Urine [place] (02/22/2025 5:18 PM EDT)ComponentValueRef RangeTest Method Analysis TimePerformed AtPathologist SignatureExtra TubeAuto Resulted 02/22/2025 7:01 PM [facility] (Source) Anatomical Location / LateralityCollection Method / VolumeCollection Time Received TimeUrineUrine specimen collection, clean catch / Iruwjsl0402/22/2025 5:18 PM EDT1 5:56 PM EDT Narrative Authorizing ProviderResult TypeResult StatusAmber Andrade ENVIRONMENTAL PROGRAMS MANAGER-CNPURINE ORDERABLESFinal ResultPerforming OrganizationAddressCity/State/ZIP CodePhone Number [address] [place] [address], [place] * Extra Urine Culture (02/22/2025 5:18 PM EDT)ComponentValueRef RangeTest Method Analysis TimePerformed AtPathologist SignatureExtra TubeAuto Resulted 02/22/2025 7:01 PM EDFire[facility] (Source) Anatomical Location / LateralityCollection Method / VolumeCollection Time Received TimeUrineUrine specimen collection, clean catch / Iekrlvx9802/22/2025 5:18 PM EDT1 5:56 PM EDT Narrative Authorizing ProviderResult TypeResult StatusAmber Andrade ENVIRONMENTAL PROGRAMS MANAGER-CNPURINE ORDERABLESFinal ResultPerforming OrganizationAddressCity/State/ZIP CodePhone Number [address] [place] [address], [place] * Extra Urine (02/22/2025 5:18 PM EDT)ComponentValueRef RangeTest MethodAnalysis TimePerformed AtPathologist SignatureExtra TubeAuto Zfzlrotf05/29/2025 7:01 PM EDFire[facility] (Source)Anatomical Location / LateralityCollection Method / VolumeCollection TimeReceived TimeUrineUrine specimen collection, clean catch / Iphujwr4502/22/2025 5:18 PM EDT1 5:56 PM EDT Narrative Authorizing ProviderResult TypeResult StatusAmber Andrade ENVIRONMENTAL PROGRAMS MANAGER-CNPURINE ORDERABLESFinal ResultPerforming OrganizationAddressCity/State/ZIP CodePhone Number [address] [place] [address], [place] * CT abdomen and pelvis with contrast (02/22/2025 3:46 PM EDT) Only the most recent of2 resultswithin the time period is included. Anatomical RegionLateralityModalityBody, Abdomen, Body CoveraN/AComputed TomographySpecimen (Source)Anatomical Location / [...] No findings of acute appendicitis. Finalized by Sauarbh Anderson MD on 02/22/2025 3:54 PM Authorizing ProviderResult TypeResult StatusAmber Zafar ENVIRONMENTAL PROGRAMS MANAGER-CNPIMG CT ORDERABLESFinal Result * SST TOP (02/22/2025 3:40 PM EDT) Only the most recent of2 resultswithin the time period is included. ComponentValueRef RangeTest MethodAnalysis TimePerformed AtPathologist Signature Extra TubeAuto Stkhhpul92/29/2025 5:01 PM [facility] Specimen (Source)Anatomical Location / LateralityCollection Method / Volume Collection TimeReceived TimeBloodVenous blood / Fdqkmfv6302/22/2025 3:40 PM EDT 02/22/2025 4:01 PM EDT Narrative Authorizing ProviderResult TypeResult StatusAmber Andrade ENVIRONMENTAL PROGRAMS MANAGER-CNPLAB BLOOD ORDERABLESFinal ResultPerforming OrganizationAddressCity/State/ZIP CodePhone Number [address] [place] [address], [place] * Light Blue Top (02/22/2025 3:40 PM EDT) Only the most recent of6 resultswithin the time period is included. ComponentValueRef RangeTest MethodAnalysis TimePerformed AtPathologist Signature Extra TubeAuto Iywillqc21/29/2025 5:01 PM [facility] Specimen (Source)Anatomical Location / LateralityCollection Method / Volume Collection TimeReceived TimeBloodVenous blood / Wfpdmhz9602/22/2025 3:40 PM EDT 02/22/2025 4:01 PM EDT Narrative Authorizing ProviderResult TypeResult StatusAmber Andrade [place]-CNPLAB BLOOD ORDERABLESFinal ResultPerforming OrganizationAddressCity/State/ZIP CodePhone Number [address] [place] [address], [place] * Lactate w/ Reflex (02/22/2025 3:40 PM EDT) Only the most recent of3 resultswithin the time period is included. ComponentValueRef RangeTest MethodAnalysis TimePerformed AtPathologist Signature LACTATE W/REFLEX0.90.4 - 2.0 mmol/L1 4:13 PM [facility]pecimen (Source)Anatomical Location / LateralityCollection Method / VolumeCollection TimeReceived TimeBloodVenous blood / Unknown Venipuncture / Xbondll9102/22/2025 3:40 PM EDT1 3:[address] [facility] - 02/22/2025 4:13 PM EDT Result did not trigger repeat Lactate, re-order if needed. Authorizing ProviderResult TypeResult StatusAmber Zafar ENVIRONMENTAL PROGRAMS MANAGER-CNPLAB BLOOD ORDERABLESFinal ResultPerforming OrganizationAddressCity/State/ZIP CodePhone Number [facility] [address] [place] [address], * (ABNORMAL) CBC auto differential (02/22/2025 3:40 PM EDT) Only the most recent of5 resultswithin the time period is included. ComponentValueRef RangeTest MethodAnalysis TimePerformed AtPathologist Signature WBC11.4(H)4 - 11 x10E9/L1 4:25 PM EDTPST. ANTHONY'S HOSPITALRBC Count5.163.8 - 5.2 X10E12/L1 4:25 PM EDGERMAN [facility]OSPITALHemoglobin10.7(L)11.7 - 15.5 g/dL02/22/2025 4:[address] [facility]ITALHematocrit35.135 - 47 %02/22/2025 4:[address] [facility]ITALMCV68(L)80 - 100 fL02/22/2025 4:[address] [facility]ITALMCH20.8(L)27 - 34 pg02/22/2025 4:[address] [facility]ITALMCHC30.5(L)32 - 36 g/dL02/22/2025 4:[address] [facility]PITALRDW24.9(H)11.5 - 15 %02/22/2025 4:[address] [facility]PITALPlatelet Djerj297585 - 450 X10E9/L1 4:25 PM EDTPST. ANTHONY'S HOSPITALMPV8.47 - 12 fL02/22/2025 4:25 PM EDGERMAN HOSPITALNeutrophils %72.1%02/22/2025 4:[address] [facility]ITALComment:This is an appended report. These results have been appended to a previously preliminary verified report. Lymphocytes %19.1%02/22/2025 4:25 PM EDGER[facility]OSPITAL Comment:This is an appended report. These results have been appended to a previously preliminary verified report.Monocytes %6.3%02/22/2025 4:[address] [facility]ITALComment:This is an appended report. These results have been appended to a previously preliminary verified report. Eosinophils %1.4%02/22/2025 4:25 PM [facility] Comment:This is an appended report. These results have been appended to a previously preliminary verified report.Basophils %1.1%02/22/2025 4:[address] [facility]ITALComment:This is an appended report. These results have been appended to a previously preliminary verified report. Neutrophils Absolute (A)8.2(H)1.5 - 6.6 10*3/uL02/22/2025 4:25 PM [facility]USComment:This is an appended report. These results have been appended to a previously preliminary verified report.Lymphocytes Absolute 2.21.0 - 3.5 10*3/uL02/22/2025 4:25 PM [facility] Comment:This is an appended report. These results have been appended to a previously preliminary verified report.Monocytes Absolute0.70.0 - 0.9 10*3/uL 02/22/2025 4:25 PM [facility]AMPUSComment:This is an appended report. These results have been appended to a previously preliminary verified report.Eosinophils Absolute0.20.0 - 0.4 10*3/uL02/22/2025 4:[address] [facility]Comment:This is an appended report. These results have been appended to a previously preliminary verified report.Basophils Absolute0.10.0 - 0.2 10*3/uL02/22/2025 4:25 PM [facility]USComment:This is an appended report. These results have been appended to a previously preliminary verified report.Anisocytosis2+02/22/2025 4:[address] [facility]Comment:This is an appended report. These results have been appended to a previously preliminary verified report. Hypochromia1+02/22/2025 4:25 PM EDGERMAN HOSPITALComment: This is an appended report. These results have been appended to a previously preliminary verified report.Target Cells1+02/22/2025 4:25 PM EDGERMAN HOSPITALComment:This is an appended report. These results have been appended to a previously preliminary verified report.Elliptocytes1+ 02/22/2025 4:25 PM EDGERMAN HOSPITALComment:This is an appended report. These results have been appended to a previously preliminary verified report.Differential TypeAUTOMATED PYCSFFBEYHKK52/29/2025 4:[address] [facility]ITALComment:This is an appended report. These results have been appended to a previously preliminary verified report.Specimen (Source)Anatomical Location / LateralityCollection Method / VolumeCollection TimeReceived TimeBloodVenous blood / UnknownVenipuncture / Caebwnw2002/22/2025 3:40 PM EDT1 3:55 PM EDT Narrative Authorizing ProviderResult TypeResult StatusAmber Andrade ENVIRONMENTAL PROGRAMS MANAGER-CNPLAB BLOOD ORDERABLESFinal ResultPerforming OrganizationAddressCity/State/ZIP CodePhone Number [address] [address], [place] * Magnesium (02/22/2025 3:40 PM EDT)ComponentValueRef RangeTest MethodAnalysis TimePerformed AtPathologist SignatureMAGNESIUM2.31.8 - 2.6 mg/dL02/22/2025 4:16 PM EDSELECT [facility]ICAL [facility] DUBLINpecimen (Source)Anatomical Location / LateralityCollection Method / VolumeCollection TimeReceived Time BloodVenous blood / UnknownVenipuncture / Xkvcwam5502/22/2025 3:40 PM EDT 02/22/2025 3:55 PM EDT Narrative Authorizing ProviderResult TypeResult StatusAmber Andrade ENVIRONMENTAL PROGRAMS MANAGER-CNPLAB BLOOD ORDERABLESFinal ResultPerforming OrganizationAddressCity/State/ZIP CodePhone Number [address] [address], [place] * Lipase (02/22/2025 3:40 PM EDT) Only the most recent of2 resultswithin the time period is included. ComponentValueRef RangeTest MethodAnalysis TimePerformed AtPathologist Signature ZLPNLM3292 - 40 U/L1 4:14 PM [facility] Specimen (Source)Anatomical Location / LateralityCollection Method / Volume Collection TimeReceived TimeBloodVenous blood / UnknownVenipuncture / Unknown 02/22/2025 3:40 PM EDT1 3:55 PM EDT Narrative Authorizing ProviderResult TypeResult StatusAmber Zafar ENVIRONMENTAL PROGRAMS MANAGER-CNPLAB BLOOD ORDERABLESFinal ResultPerforming OrganizationAddressCity/State/ZIP CodePhone Number [facility] [address] [place] [address], * (ABNORMAL) Comprehensive metabolic panel (02/22/2025 3:40 PM EDT) Only the most recent of3 resultswithin the time period is included. ComponentValueRef RangeTest MethodAnalysis TimePerformed AtPathologist Signature WQXTRO581051 - 146 mmol/L1 4:16 PM [facility] CAMPUSPOTASSIUM3.4(L)3.5 - 5.0 mmol/L1 4:16 PM [facility] CAMPUSCHLORIDE96(L)98 - 109 mmol/L1 4:16 PM [facility] CAMPUSCARBON JCAXJNW1251 - 32 mmol/L1 4:[address] [facility]PITALANION TOP211 - 15 mmol/L1 4:16 PM [facility] CAMPUSBLOOD UREA PWBRXJVX69(H)5 - 27 mg/dL 02/22/2025 4:16 PM [facility] CAMPUSCREATININE1.53(H)0.40 - 1.00 mg/dL02/22/2025 4:16 PM [facility] CAMPUSComment: METHOD TRACEABLE TO IDMS JVEPWHTZSTFIUYZ080(H)65 - 99 mg/dL02/22/2025 4:16 PM [facility] CAMPUSCALCIUM9.28.5 - 10.5 mg/dL02/22/2025 4:16 PM [facility] CAMPUSTOTAL PROTEIN7.66.0 - 8.0 g/dL 02/22/2025 4:16 PM [facility] CAMPUSALBUMIN4.13.2 - 5.3 g/dL02/22/2025 4:16 PM [facility] CAMPUSALKALINE KWSZWQYLGUZ5208 - 130 U/L1 4:16 PM [facility]AMPUSAST21<=41 U/L1 4:16 PM [facility] ALT22<=31 U/L1 4:16 PM [facility] BILIRUBIN,TOTAL0.40.3 - 1.2 mg/dL02/22/2025 4:16 PM [facility]TH CAMPUSEGFR Non-Race Hrsomcguf11(L)>=60 ml/min/1.73sq.m1 4:16 PM [facility] CAMPUSComment: eGFR not reported due to non-numeric value for Creatinine. Reported eGFR is based on the CKD-EPI 2020 equation that does not use a race coefficient. Specimen (Source)Anatomical Location / LateralityCollection Method / Volume Collection TimeReceived TimeBloodVenous blood / UnknownVenipuncture / Unknown 02/22/2025 3:40 PM EDT1 3:55 PM EDT Narrative Authorizing ProviderResult TypeResult StatusAmber Andrade ENVIRONMENTAL PROGRAMS MANAGER-CNPLAB BLOOD ORDERABLESFinal ResultPerforming OrganizationAddressCity/State/ZIP CodePhone Number [facility] [address] [place] [address], * (ABNORMAL) Basic Metabolic Panel (02/20/2025 9:08 AM EDT) Only the most recent of8 resultswithin the time period is included. ComponentValueRef RangeTest MethodAnalysis TimePerformed AtPathologist Signature [id number] - 146 mmol/L1 2:22 PM [facility] LABORATORYPOTASSIUM3.3(L)3.5 - 5.0 mmol/L1 2:22 PM [facility] YMNXUMDTJCSYHJEVLN69(L)98 - 109 mmol/L1 2:22 PM [facility] LABORATORYCARBON OZQGPEJ26(H)22 - 32 mmol/L1 2:22 PM [facility] LABORATORYANION GAP95 - 15 mmol/L1 2:22 PM [facility] LABORATORYBLOOD UREA QAMJNXVN402 - 27 mg/dL 02/20/2025 2:22 PM [facility] LABORATORYCREATININE1.17(H)0.40 - 1.00 mg/dL02/20/2025 2:22 PM [facility] LABORATORYComment: METHOD TRACEABLE TO IDMS VNQLLYVGOIGDKKG291(H)65 - 99 mg/dL02/20/2025 2:22 PM [facility] LABORATORYCALCIUM9.68.5 - 10.5 mg/dL02/20/2025 2:22 PM [facility] LABORATORYEGFR Non-Race Wpzoqlojo88(L)>=60 ml/min/1.73sq.m1 2:22 PM [facility] LABORATORYComment: Reported eGFR is based on the CKD-EPI 2020 equation that does not use a race coefficient. Specimen (Source)Anatomical Location / LateralityCollection Method / Volume Collection TimeReceived TimeBloodVenous blood / UnknownVenipuncture / Unknown 02/20/2025 9:08 AM EDT1 9:08 AM EDT Narrative Authorizing ProviderResult TypeResult StatusImad Jose LEIJA BLOOD ORDERABLES Final ResultPerforming OrganizationAddressCity/State/ZIP CodePhone Number [facility] [address] [place] [address], * Liver panel (02/09/2025 2:24 PM EDT)ComponentValueRef RangeTest MethodAnalysis TimePerformed AtPathologist SignatureTOTAL PROTEIN7.96.0 - 8.0 g/dL02/09/2025 2:59 PM EDGERMAN HOSPITALALBUMIN4.23.2 - 5.3 g/dL 02/09/2025 2:59 PM [facility] CAMPUSBILIRUBIN,TOTAL0.70.3 - 1.2 mg/dL02/09/2025 2:59 PM EDGERMAN HOSPITALALKALINE ERFZZEHUMMB3049 - 130 U/L1 2:59 PM [facility] CAMPUSAST20<=41 U/L1 2:59 PM [facility] ALT17<=31 U/L1 2:59 PM [facility] BILIRUBIN,DIRECT0.1<=0.4 mg/dL02/09/2025 2:59 PM [facility]pecimen (Source)Anatomical Location / LateralityCollection Method / VolumeCollection TimeReceived TimeBloodVenous blood / UnknownVenipuncture / Duyczmn7602/09/2025 2:24 PM EDT1 2:35 PM EDT Narrative Authorizing ProviderResult TypeResult StatusPamartina Mims MDLAB BLOOD ORDERABLESFinal ResultPerforming OrganizationAddressCity/State/ZIP CodePhone Number [facility] [address] [place] [address], * Surgical Pathology (01/04/2025 9:58 AM EDT)ComponentValueRef RangeTest Method Analysis TimePerformed AtPathologist SignatureCase ReportSurgical Pathology Report ? Case: [id number] ? Authorizing Provider: ??Michael Steiner, DO ? Collected: ? 01/04/2025 0958 ? Ordering Location: ? [facility] ? Received: ?01/04/2025 1152 ? [facility] - ? Endoscopy ? Pathologist: ? Kelby Snow Maher, MD ? Specimens: ?? 1) - Duodenum, Duodenum biopsies ? 2) - Antrum, Antrum biopsies ? 3) - Stomach, hiatal hernia biopsies ? 4) - Esophagus, distal esophagus ulceration biopsies ? 01/13/2025 9:25 AM [facility] LABORATORYFinal Diagnosis1. Duodenal biopsies: Normal duodenal mucosa. No duodenitis, [...] are pending. No intestinal metaplasia or dysplasia identified.01/13/2025 9:25 AM [facility] at 1334 EDTAddendum 4. PAS stain for fungus is negative. Immunostains for HSV and CMV are also negative. All controls are satisfactory.01/13/2025 9:25 AM [facility] LABORATORYAddendum electronically signed by Kelby Maher MD on 01/13/2025 at 0925 EDTGross Description1. Received in formalin labeled COOL, #1: Duodenum biopsies are 2 garrido bits of soft tissue, each 0.3 cm in greatest dimension. Filtered and submitted in a single cassette. (1, ns, [id number], m7) MG 2. Received in formalin labeled COOL, #2: Antrum biopsies is a single garrido bit of soft tissue, 0.2cm in greatest dimension. Filtered and submitted in a single cassette. (1, ns, [id number], m7) MG 3. Received in formalin labeled COOL, #3: Hiatal hernia biopsies are 2 garrido bits of soft tissue, ranging from 0.2-0.3 cm in greatest dimension. Filtered and submitted in a single cassette. (1, ns, [id number], m7) MG 4. Received in formalin labeled COOL, #4: Distal esophagus ulceration biopsies are 5 garrido delicatebits of soft tissue, ranging from 0.1-0.2 cm in greatest dimension. Filtered and submitted in a single cassette. (1, ns, [id number], m7) MG01/13/2025 9:25 AM [facility] LABORATORYEmbedded Images 01/13/2025 9:25 AM [facility] LABORATORYSpecimen (Source)Anatomical Location / LateralityCollection Method / VolumeCollection TimeReceived Time Tissue (Duodenum)01/04/2025 9:58 AM EDT01/04/2025 11:52 AM EDTComment:Pre-op diagnosis: microcytic anemiaTissue specimen (specimen)Mastoid antrum structure / Unknown 01/04/2025 9:59 AM EDT01/04/2025 11:52 AM EDTComment:Pre-op diagnosis: microcytic anemiaTissue specimen (specimen)Stomach structure / Vjwtbnr8401/04/2025 10:03 AM EDT01/04/2025 11:52 AM EDTComment:Pre-op diagnosis: microcytic anemiaTissue specimen (specimen)Esophageal structure / Unknown 01/04/2025 10:04 AM EDT01/04/2025 11:52 AM EDTComment:Pre-op diagnosis: microcytic anemia Narrative Authorizing ProviderResult TypeResult StatusMichael Steiner DOPATHOLOGY/CYTOLOGY ORDERABLESEdited Result - FinalPerforming OrganizationAddressCity/State/ZIP Code Phone Number [facility] [address] [place] [address], [facility] [address] [place] [address], * Echo complete W/O contrast (12/21/2024 8:11 AM EDT)ComponentValueRef RangeTest MethodAnalysis TimePerformed AtPathologist SignatureLVOT stroke giycae33.57ml XCELERALV Systolic Ugmsji43.09wNDUXLJDBCS76%OVQCAROGO7574 - 44 %XCELERALV Diastolic Bcjmti532.58kMSGMWBHPEXPOo3.43oxQDYCUDDYAREp6.41uuSNIZXCXICJ7.900.6 - 1.1 cmXCELERAPW0.900.6 - 1.1 cmXCELERALVOT diameter2.92uwFVLQOJTXSC4.40cm/s XCELERAMV TDI E' (medial)8.38cm/sXCELERALA Volume Index44.0mL/b9CAPQOCCZ/A ratio1.12XCELERAE wave deceleration xmyv156.00msecXCELERAMV Peak E Dhs443.00 cm/sXCELERAMV Peak A Fie874.00cm/sXCELERALA size4.80cmXCELERAAortic root3.40cm XCELERALA xdkoxe720.12hi7FUVGDAFZN diastolic dimension (basal)40.0mmXCELERA RVID d3.8vlJLVSFVIRQJPE1.13cmXCELERAAV peak kqk962.00cm/sXCELERALVOT peak liz 0.96m/sXCELERAAV VTI38.30cmXCELERALVOT peak VTI23.10cmXCELERAAV mean gradient 6.00mmHgXCELERAAV peak zlayxhqj50.89mmHgXCELERAAV valve area1.89XCELERAValve area - Index0.8XCELERAMV mean gradient2.00mmHgXCELERAMV peak gradient5.95mmHg XCELERAMV VTI46.90cmXCELERAMV valve area by continuity eq1.55XCELERAMV pressure 1/2 time76.00msXCELERAMV valve area p 1/2 method2.12vl3PKSXLXJVC Peak Vel3.2m/sXCELERATR peak suoxpagf23.81mmHgXCELERAPV mean gradient4.00mmHg XCELERAPV peak gradient6.55mmHgXCELERALV ESV A2C87.40mLXCELERALV ESV G5W735.00 mLXCELERAMitral Valve Max Velocity1.22cm/sXCELERALV RWT 2D35.29XCELERAEcho EF Vddactjuv59%XCELERAAV Velocity Ratio0.60XCELERALeft Ventricle Mass [id number]zwqx Septum Diastolic Thickness by 2D9 cmXCELERARV Peak Systolic Pjgoxewr34sdChNLYKTWMIpl. RA hnipotdl8mkRpWQKYQRMOQ area21.1mp2JXRRFOGTidsvgbhvy RegionLateralityModalityChestN/AUltrasound Specimen (Source)Anatomical Location / LateralityCollection Method / Volume Collection TimeReceived Time Narrative 12/21/2024 12:01 PM EDT Left Ventricle: Left ventricle appears normal in size. Systolic function is normal with an ejection fraction of 55-60%. The quantitative EF by 2D Segundo biplane is 56%. ?Left??Atrium: Left atrium volume index is moderately increased. The left atrial volume index is 44.0 mL/m2. ?Right??Atrium: Right atrium is mildly dilated. The right atrial area is 21.8 cm2. ?Aortic??Valve: There is trace regurgitation. There is no evidence of aortic valve stenosis. ?Mitral??Valve: There is zyyrc-go-tmzg regurgitation. There is no evidence of mitral valve stenosis. ?Tricuspid??Valve: There is mild to moderate regurgitation. There is no evidence of tricuspid valve stenosis. There is mild to moderate pulmonary hypertension. Left Ventricle Left ventricle appears normal in size. Wall thickness is normal. Systolic function is normal with an ejection fraction of 55-60%. The quantitative EF by 2D Segundo biplane is 56%. No obvious regionalwall motion abnormalities. Grade II diastolic dysfunction (pseudonormal) [...] Mitral valve structure is normal. There is cagxi-jt-fglx regurgitation. There is no evidence of mitral valve stenosis. Tricuspid Valve Tricuspid valve appears to be normal. There is mild to moderate regurgitation. There is no evidenceof tricuspid valve stenosis. The right ventricular systolic pressure is mild to moderately elevated. RVSP calculated at 44 mmHg. RVSP is based on RA pressure of 3 mmHg. There is mild to moderate pulmonary hypertension. Aortic Valve The aortic valve is trileaflet. The leaflets exhibit normal excursion and exhibit focal thickening.There is trace regurgitation. There is no evidence [...] The left ventricular wall motion is normal. Authorizing ProviderResult TypeResult Sravani Cook ENVIRONMENTAL PROGRAMS MANAGER-CNPCV ECHO ORDERABLESFinal Result * Admit to Adult inpatient (12/14/2024 12:55 PM EDT) Narrative Authorizing ProviderResult TypeResult StatusCristhian Garrido MDADT ORDERABLES Final Result * (ABNORMAL) Blood gas, venous (12/06/2024 8:48 AM EDT) Only the most recent of5 resultswithin the time period is included. ComponentValueRef RangeTest MethodAnalysis TimePerformed AtPathologist Signature Sample ugfsWJDCYA07/12/2025 8:50 AM [facility]USpH, Venous7.3787.320 - 7.9301112/06/2024 8:50 AM [facility]AMPUSpCO2, Hzxfnn96.6(H)35.0 - 50.0 mmHg12/06/2024 8:50 AM [facility]AMPUSpO2, Fniywy9664 - 50 mmHg12/06/2024 8:50 AM EDT [facility]Base, Pwivtc96.0(H)0.0 - 2.0 mmol/L12/06/2024 8:50 AM [facility] CAMPUSHCO3, Qwggxo18.4(H)20.0 - 24.0 mmol/L12/06/2024 8:50 AM [facility]%O2 Saturation, Lxwdje25.0%12/06/2024 8:50 AM EDTPST. ANTHONY'S HOSPITALAllen's test N/A012/06/2024 8:50 AM EDTPOHIO VALLEY HOSPITALample siteN/A 12/06/2024 8:50 AM EDTPOHIO VALLEY HOSPITALource Of OxygenNC 12/06/2024 8:50 AM EDTPOhioHealth (Source) Anatomical Location / LateralityCollection Method / VolumeCollection Time Received TimevenousVenous blood / Ssrydxc4812/06/2024 8:48 AM EDT12/06/2024 8:50 AM EDT Narrative Authorizing ProviderResult TypeResult StatusJohn L Yuhas DOLAB BLOOD ORDERABLES Final ResultPerforming OrganizationAddressCity/State/ZIP CodePhone Number [address] [place] [address], [place] * Lavender Top (12/06/2024 5:58 AM EDT)ComponentValueRef RangeTest Method Analysis TimePerformed AtPathologist SignatureExtra TubeAuto Resulted 12/06/2024 7:01 AM EDFire[facility] (Source) Anatomical Location / LateralityCollection Method / VolumeCollection Time Received TimeBloodVenous blood / Oxhrpfa9612/06/2024 5:58 AM EDT12/06/2024 6:09 AM EDT Narrative Authorizing ProviderResult TypeResult StatusJohn L Yuhas DOLAB BLOOD ORDERABLES Final ResultPerforming OrganizationAddressCity/State/ZIP CodePhone Number [address] [place] [address], [place] * PST TOP (12/06/2024 5:58 AM EDT)ComponentValueRef RangeTest MethodAnalysis TimePerformed AtPathologist SignatureExtra TubeAuto Xaturenb10/12/2025 7:01 AM [facility] (Source)Anatomical Location / LateralityCollection Method / VolumeCollection TimeReceived TimeBloodVenous blood / Ydnfpck1912/06/2024 5:58 AM EDT12/06/2024 6:22 AM EDT Narrative Authorizing ProviderResult TypeResult StatusMichael Steiner DOLAB BLOOD ORDERABLES Final ResultPerforming OrganizationAddressCity/State/ZIP CodePhone Number [address] [place] [address], * Phosphorus (12/06/2024 5:58 AM EDT) Only the most recent of3 resultswithin the time period is included. ComponentValueRef RangeTest MethodAnalysis TimePerformed AtPathologist Signature PHOSPHORUS3.12.4 - 4.9 mg/dL12/06/2024 7:25 AM EDTPROMEDICA [facility], SACRAMENTOpecimen (Source)Anatomical Location / LateralityCollection Method / VolumeCollection TimeReceived TimeBloodVenous blood / UnknownVenipuncture / Zkbakjw2212/06/2024 5:58 AM EDT12/06/2024 6:06 AM EDT Narrative Authorizing ProviderResult TypeResult StatusMichael Steiner DOLAB BLOOD ORDERABLES Final ResultPerforming OrganizationAddressCity/State/ZIP CodePhone Number [address] [place] [address], [place] * Lower resp/sputum culture inc gram stain: Patient acquired (12/05/2024 10:28 PM EDT)ComponentValueRef RangeTest MethodAnalysis TimePerformed AtPathologist SignatureCULTURE RESULTSCULTURE CANCELLED. SPECIMEN DOES NOT MEET CRITERIA FOR CULTURING. PLEASE REORDER AND RESUBMIT.12/07/2024 2:36 PM EDTTWHITE HOSPITAL LABORATORYGRAM STAIN>25 Squamous Epithelial Cells/LPF with Mixed Bacterial Types Seen. Regarded as Saliva not Sduatv9112/07/2024 2:36 PM EDT [facility] LABORATORYSpecimen (Source)Anatomical Location / LateralityCollection Method / VolumeCollection TimeReceived TimeSputum Bronchial structure / Skyaova5112/05/2024 10:28 PM EDT12/05/2024 10:33 PM EDT Narrative Authorizing ProviderResult TypeResult StatusMichael Steiner DOMICROBIOLOGY - GENERAL ORDERABLESFinal ResultPerforming OrganizationAddressCity/State/ZIP Code Phone Number [facility] [address] [place] [address], [place] [phone] * (ABNORMAL) Bedside Glucose *Place/Obtain serum glucose if >500 per glucometer. (12/05/2024 6:04 PM EDT) Only the most recent of6 resultswithin the time period is included. ComponentValueRef RangeTest MethodAnalysis TimePerformed AtPathologist Signature Bedside Glucose (POC)147(H)65 - 99 mg/dL12/05/2024 6:18 PM [facility] (Source)Anatomical Location / LateralityCollection Method / VolumeCollection TimeReceived Timearterial/ajfmkounj40/11/2025 6:04 PM EDT12/05/2024 6:18 PM EDT Narrative Authorizing ProviderResult TypeResult StatusMichael Steiner DOPOINT OF CARE TEST ORDERABLESFinal ResultPerforming OrganizationAddressCity/State/ZIP CodePhone Number [facility] [address] [place] [address], * (ABNORMAL) Troponin I, High Sensitivity 1 Hour (12/04/2024 8:23 AM EDT) Only the most recent of2 resultswithin the time period is included. ComponentValueRef RangeTest MethodAnalysis TimePerformed AtPathologist Signature TROPONIN I, HIGH FJAISDWHDQB08(H)<16 ng/L12/04/2024 9:07 AM [facility] (Source)Anatomical Location / LateralityCollection Method / VolumeCollection TimeReceived TimeBloodVenous blood / Unknown Venipuncture / Eylbcyq2312/04/2024 8:23 AM EDT12/04/2024 8:[address] [facility] - 12/04/2024 9:07 AM EDT Elevations of hs-Troponin may be due to causes other than myocardial ischemia. Recommend serial hs-Troponin testing be performed. For the initial evaluation and management of chest pain patients, refer to the algorithms linked below. Emergency Patient: [email or web address] Inpatient: [email or web address] Authorizing ProviderResult TypeResult Patricia Bal DOLAB BLOOD ORDERABLESFinal ResultPerforming OrganizationAddressCity/State/ZIP CodePhone Number [facility] [address] [place] [address], * Critical Care (12/04/2024 8:15 AM EDT) Narrative Patrick Bal DO - 12/04/2024 8:15 AM EDT Patrick Bal DO 12/05/2024 3:17 AM Critical Care Performed by: Patrick Bal DO Authorized by: Patrick Bal, ?? Critical care provider statement: ??Critical care time (minutes): ??35 ??Critical care time was exclusive of: ??Separately billable procedures and treating other patients ??Critical care was necessary to treat or prevent imminent or life-threatening deterioration of the following conditions: ??Respiratory failure ??Critical care was time spent personally by me on the following activities: ??Blood draw for specimens, development of treatment plan with patient or surrogate, discussions with primary provider, evaluation of patient's response to treatment, examination of patient, ventilator management, review of old charts, re-evaluation of patient's condition, pulse oximetry, ordering and review of radiographic studies, ordering and review of laboratory studies, ordering and performing treatments and interventions and obtaining history from patient or surrogate Authorizing ProviderResult TypeResult Patricia Bal DOPROCEDURE/MINOR SURGICAL ORDERABLESFinal Result * (ABNORMAL) Troponin I, High Sensitivity 0 Hour (12/04/2024 7:14 AM EDT) Only the most recent of2 resultswithin the time period is included. ComponentValueRef RangeTest MethodAnalysis TimePerformed AtPathologist Signature TROPONIN I, HIGH LBQWMJMBULX33(H)<16 ng/L12/04/2024 7:50 AM EDTPROMEDICA [facility], SACRAMENTOpecimen (Source)Anatomical Location / LateralityCollection Method / VolumeCollection TimeReceived TimeBloodVenous blood / Unknown Venipuncture / Rpwxjcz3912/04/2024 7:14 AM EDT12/04/2024 7:18 AM EDT Narrative Authorizing ProviderResult TypeResult StatusBret Hernando ERNSTAB BLOOD ORDERABLESFinal ResultPerforming OrganizationAddressCity/State/ZIP CodePhone Number [address] [place] [address], * (ABNORMAL) Procalcitonin (12/04/2024 7:14 AM EDT)ComponentValueRef RangeTest MethodAnalysis TimePerformed AtPathologist SignaturePROCALCITONIN0.13(H)<0.05 ng/mL12/04/2024 1:09 PM EDSELECT MEDICAL OHIO[facility]ABIL[facility] - DUBLINpecimen (Source)Anatomical Location / LateralityCollection Method / VolumeCollection TimeReceived TimeBloodVenous blood / UnknownVenipuncture / Ddfjaes3212/04/2024 7:14 AM EDT12/04/2024 7:[address] [facility] - 12/04/2024 1:09 PM EDT <0.50 ng/mL - Low risk of severe sepsis and/or septic shock. <2.00 ng/mL - Recommend retesting within 6-24 hours. >2.00 ng/mL - High risk of sepsis and/or septic shock. Authorizing ProviderResult TypeResult StatusFaithabby Janae ERNSTAB BLOOD ORDERABLES Final ResultPerforming OrganizationAddressCity/State/ZIP CodePhone Number [address] [place] [address], [place] * (ABNORMAL) B-type natriuretic peptide (12/04/2024 7:14 AM EDT) Only the most recent of2 resultswithin the time period is included. ComponentValueRef RangeTest MethodAnalysis TimePerformed AtPathologist Signature IEG186(H)<=100 pg/mL12/04/2024 7:46 AM [facility] Specimen (Source)Anatomical Location / LateralityCollection Method / Volume Collection TimeReceived TimeBloodVenous blood / UnknownVenipuncture / Unknown 12/04/2024 7:14 AM EDT12/04/2024 7:18 AM EDT Narrative Authorizing ProviderResult TypeResult StatusBret Hernando Bal DOLAB BLOOD ORDERABLESFinal ResultPerforming OrganizationAddressCity/State/ZIP CodePhone Number [facility] [address] [place] [address], * X-ray chest 1 view (12/04/2024 7:11 AM EDT) Only the most recent of2 resultswithin the time period is included. Anatomical RegionLateralityModalityBody, ChestN/AComputed RadiographySpecimen (Source)Anatomical Location / LateralityCollection Method / VolumeCollection TimeReceived Time12/04/2024 7:13 AM EDT Narrative 12/04/2024 7:13 AM EDT Single view chest History:SOB ??Difficulty breathing, shortness of breath Comparison: 12/03/2024 Findings: [...] Hugo Kim MD on 12/04/2024 7:13 AM Authorizing ProviderResult TypeResult Patricia Bal [facility] DIAGNOSTIC IMAGING ORDERABLESFinal Result * ECG 12 lead (12/04/2024 6:48 AM EDT) Only the most recent of2 resultswithin the time period is included. Specimen (Source)Anatomical Location / LateralityCollection Method / Volume Collection TimeReceived Time12/04/2024 6:48 AM EDT Narrative [facility] - 12/05/2024 3:17 AM EDT Authorizing ProviderResult YimiResult Patricia Bal DOG ORDERABLES Final ResultPerforming OrganizationAddressCity/State/ZIP CodePhone Number [facility] * CT angiogram chest (12/03/2024 4:02 AM EDT)Anatomical RegionLateralityModality Lung, Body, Chest, Vascular, Body CoveraN/AComputed TomographySpecimen (Source)Anatomical Location / LateralityCollection Method / VolumeCollection TimeReceived Time12/03/2024 4:12 AM EDT Narrative 12/03/2024 4:15 AM [...] clear for an active process. No hilar ormediastinal mass or adenopathy are seen. Extensive coronary artery calcifications. There is a hiatal hernia. Limited images of the upper abdomen are unremarkable. Impression: * ??No evidence of pulmonary embolism in the main pulmonary arteries. The secondary to shear branches are insufficiently opacified for full evaluation * ??Diffuse right-sided infiltrate * ??Hiatal hernia All CT scans at this facility [...] Kai Finn MD on 12/03/2024 4:15 AM Authorizing ProviderResult TypeResult Elena Garrido MDIMG CT ORDERABLESFinal Result * Blood culture (12/03/2024 3:47 AM EDT) Only the most recent of2 resultswithin the time period is included. ComponentValueRef RangeTest MethodAnalysis TimePerformed AtPathologist Signature CULTURE RESULTSNO GROWTH 5 DAYS12/08/2024 10:01 AM [facility] LABORATORYSpecimen (Source)Anatomical Location / LateralityCollection Method / VolumeCollection TimeReceived TimeBloodVenous blood / UnknownVenipuncture / Nomjsbb9812/03/2024 3:47 AM EDT12/03/2024 3:49 AM EDT Narrative Authorizing ProviderResult TypeResult Elena Garrido MDMICROBIOLOGY - GENERAL ORDERABLESFinal ResultPerforming OrganizationAddressCity/State/ZIP Code Phone Number [facility] [address] [place] [address], [place] [phone] * X-ray knee right 3 views (11/28/2024 3:37 PM EDT)Anatomical RegionLaterality ModalityLower Extremities, MSK, KneeRightComputed RadiographySpecimen (Source) Anatomical Location / LateralityCollection Method / VolumeCollection Time Received Time11/29/2024 2:27 PM EDT Narrative 11/29/2024 2:28 PM EDT History: Patellar tendinitis Exam/Technique: Frontal lateral and oblique views of the right knee were obtained. Comparison: ??03/04/2017 Findings: There is no evidence for an acute osseous abnormality. Mild medial joint space narrowing.No other significant degenerative changes are seen. No [...] Kai Finn MD on 11/29/2024 2:28 PM Authorizing ProviderResult TypeResult StatusMichael Steiner [facility] DIAGNOSTIC IMAGING ORDERABLESFinal Result * Pap Smear (02/18/2022 10:08 AM EDT)Specimen (Source)Anatomical Location / LateralityCollection Method / VolumeCollection TimeReceived Time02/18/2022 10:08 AM EDT1 10:09 AM EDT Narrative [facility] - 02/28/2022 1:19 PM EDT [facility] ? [facility] Laboratory Medicine ? [address] [place] [address] ? [place] [address] ? Gynecologic Cytology Consultation ? Patient Name:MONET YORK:1960 (Age: 61)Gender:FTaken:2Reported:2Physician(s):Ashtyn Hackett M.D. ([phone])Copy To: Rec. #:[id number]: #[id number] Final Cytologic Interpretation ThinPrep Pap Test (Not otherwise specified): Satisfactory for evaluation. NEGATIVE FOR INTRAEPITHELIAL LESION OR MALIGNANCY. ?? melissa/02/28/2022 Interpretation performed at [facility], [address] [place] [id number], License number: [id number]. Electronically Signed Out By ?RAZIA Ambrosio(ASCP) Date of Last Menstrual Period: ? (None Given) Other Clinical Conditions: Z12.4 Screening for malignant neoplasm of cervix Z11.51 Screening for HPV Source of Specimen ??ThinPrep Pap Test (Not otherwise specified) ? 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 G0145 Authorizing ProviderResult TypeResult StatusAbeer [facility] MDPATHOLOGY/CYTOLOGY ORDERABLESFinal ResultPerforming OrganizationAddressCity/State/ZIP CodePhone Number [facility] from Last 3 Months or Most Recently Relevant to Health Maintenance Insurance Advance Directives TypeDate RecordedPatient RepresentativeExplanationDNR Physician Order12/03/2024 3:17 AMDNR Comfort Care 12/03/24Durable Power of Attorney05/15/2023 8:14 AMLiving Will12/19/2021 11:54 AMLIVING WILL & DPOALiving Will11/22/2021 1:59 PMDurable Power of Attorney11/22/2021 1:58 PM * DNR Comfort Care Arrest (DNR-CCA) [place] (Latest Code Status on File) Date ActivatedDate InactivatedComments12/04/2024 9:11 AM12/04/2024 12:20 PM * DNRCCA DNI Date ActivatedDate InactivatedComments12/03/2024 3:16 AM12/03/2024 10:34 AM * Full Code Date ActivatedDate InactivatedComments08/28/2023 4:38 AM08/29/2023 11:50 AM * Full Code Date ActivatedDate InactivatedComments08/28/2023 4:09 AM08/28/2023 4:38 AM * Full Code Date ActivatedDate InactivatedComments07/25/2023 9:03 PM07/27/2023 4:44 PM Care Teams Team MemberRelationshipSpecialtyStart DateEnd Date Michael Steiner, [address] [place] [address] PCP - GeneralInternal Medicine12/17/23
--- OUTSIDE RECORDS SUMMARY | 2025-02-23 10:45 | XMS_ITS | Encounter Summary ---
Author Organization [facility] [employer] [facility] tem Address [id number] [place] [address] Care Team Providers Care Lens Marker Name Role Phone Michael Steiner DO Primary Care Provider [phone] Encounter Details DateTypeDepartmentCare Team (Latest Contact Info)Ikmvrxcicqs41/18/2025Results Follow-Up [facility] [address] [place] [address] Kacey Sims RN Basic Metabolic Panel Social History Tobacco UseTypesPacks/DayYears UsedDateSmoking Tobacco: LrhlhoHgfjhcodtj172 09/1981 - mokeless Tobacco: Never Comments:5-6 cigerettes a da y Alcohol UseStandard Drinks/WeekCommentsNot Currently0 (1 standard drink = 0.6 oz pure alcohol)[facility] UtilitiesAnswerDate RecordedIn the past 12 months has the [employer], gas, oil, or water [employer] threatened to shut off services in your home?No12/04/2024Social Connection and Isolation PanelAnswer Date RecordedIn a typical week, how many times do you talk on the phone with family, friends, or neighbors?Three times a week07/25/2023How often do you get together with friends or relatives?Three times a week07/25/2023How often do you attend shinto or alevism services?More than 4 times per year07/25/2023o you belong to any clubs or organizations such as shinto groups, unions, fraternal [...] care, and heating?Not very hard 12/04/2024PHQ-2AnswerDate RecordedTotal Yqsud933[facility]. [facility] [place] of Occupational Health - Occupational Stress QuestionnaireAnswerDate RecordedDo you feel stress - tense, restless, nervous, or anxious, or unable to sleep at night because yourmind is troubled all the time - these days?Only a sobtar0007/25/2023 Exercise Vital SignAnswerDate RecordedOn average, how many [...] a household?No12/04/2024hildcareAnswerDate RecordedDo problems getting child care centre director make 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 to work [...] and Gender InformationValue Date RecordedSex Assigned at BsuadKiemtd76/10/2021 8:51 AM EDTLegal SexFemale 02/16/2017 2:26 PM EDTGender RyaxveajZttccb99/10/2021 8:51 AM EDTSexual TbppzypdansPwhsbhst99/02/2023 8:29 PM ESTdocumented as of this encounter Plan of Treatment DateTypeDepartmentCare Team (Latest Contact Info)Hpzbabywosx85/19/2025 1:30 PM ESTOffice Visit [facility] [address] [place] [phone] Michael Steiner, DO [address] [place] [address] documented as of this encounter Goals GoalPatient Goal TypeAssociated ProblemsRecent ProgressPatient-Stated?Author home Jimena Wilson LSW Note: Evaluation of progress towards goal: feeling better documented as of this encounter Results * (ABNORMAL) Basic Metabolic Panel (12/28/2024 8:56 AM EDT)ComponentValueRef RangeTest MethodAnalysis TimePerformed AtPathologist MtwgujolhGATXTK234669 - 146 mmol/L12/28/2024 2:23 PM [facility] LABORATORYPOTASSIUM 4.23.5 - 5.0 mmol/L12/28/2024 2:23 PM [facility] WKMHWYNX42856 - 109 mmol/L12/28/2024 2:23 PM [facility] LABORATORYCARBON NIABPMI7271 - 32 mmol/L12/28/2024 2:23 PM [facility] LABORATORYANION GAP95 - 15 mmol/L12/28/2024 2:23 PM [facility] LABORATORYBLOOD UREA EFHUVUUU988 - 27 mg/dL12/28/2024 2:23 PM [facility] LABORATORYCREATININE1.27(H)0.40 - 1.00 mg/dL 12/28/2024 2:23 PM [facility] LABORATORYComment:METHOD TRACEABLE TO IDMS TPMOBBMHLLMGQSZ3923 - 99 mg/dL12/28/2024 2:23 PM [facility] LABORATORYCALCIUM9.18.5 - 10.5 mg/dL12/28/2024 2:23 PM EDT [facility] LABORATORYEGFR Non-Race Ibxuhyjrd13(L)>=60 ml/min/1.73sq.m012/28/2024 2:23 PM [facility] Comment: Reported eGFR is based on the CKD-EPI 2020 equation that does not use a race coefficient. Specimen (Source)Anatomical Location / LateralityCollection Method / Volume Collection TimeReceived TimeBloodVenous blood / UnknownVenipuncture / Unknown 12/28/2024 8:56 AM EDT12/28/2024 8:56 AM EDT Narrative Authorizing ProviderResult TypeResult StatusJanice R Chanel [facility] REPRESENTATIVE-CNPLAB BLOOD ORDERABLESFinal ResultPerforming OrganizationAddressCity/State/ZIP CodePhone Number [facility] [address] [place] [address], documented in this encounter Visit Diagnoses Diagnosis Chronic heart failure with preserved ejection fraction (CMS-HCC)- Primary documented in this encounter Additional Health Concerns AssessmentNoted TimePHQ-9 Depression Total Score: 2:16 PM EDT documented as of this encounter Care Teams Team MemberRelationshipSpecialtyStart DateEnd Date Michael Steiner DO [address] [place] [address] PCP - GeneralInternal Medicine12/17/23documented as of this encounter
--- OUTSIDE RECORDS SUMMARY | 2025-02-23 10:45 | XMS_ITS | Encounter Summary ---
Author Organization [facility] tem Address [id number] [place] [address] Care Team Providers Care Drawer In Stitch Bonding Machine Name Role Phone Michael Steiner DO Primary Care Provider [phone] Encounter Details DateTypeDepartmentCare Team (Latest Contact Info)Okrhyilvacv47/21/2025Results [facility] [address] [place] [address] Michael Steiner DO [address] [place] [address] Basic Metabolic Panel Social History Tobacco UseTypesPacks/DayYears UsedDateSmoking Tobacco: YjkjroQbtrddnohp356 09/1981 - mokeless Tobacco: Never Comments:5-6 cigerettes a da y Alcohol UseStandard Drinks/WeekCommentsNot Currently0 (1 standard drink = 0.6 oz pure alcohol)last use 15 years agoAH UtilitiesAnswerDate RecordedIn the past 12 months has the [employer], gas, oil, or water [employer] threatened to shut off services in your home?No12/04/2024Social Connection and Isolation PanelAnswer Date RecordedIn a typical week, how many times do you talk on the phone with family, friends, or neighbors?Three times a week07/25/2023How often do you get together with friends or relatives?Three times a week07/25/2023How often do you attend religious or orthodoxy services?More than 4 times per year07/25/2023o you belong to any clubs or organizations such as religious groups, unions, fraternal [...] care, and heating?Not very hard 12/04/2024PHQ-2AnswerDate RecordedTotal Dodpk771Finhuntsman mental health institute [place] of Occupational Health - Occupational Stress QuestionnaireAnswerDate RecordedDo you feel stress - tense, restless, nervous, or anxious, or unable to sleep at night because yourmind is troubled all the time - these days?Only a jczveg8907/25/2023 Exercise Vital SignAnswerDate RecordedOn average, how many [...] part of a household?No12/04/2024hildcareAnswerDate RecordedDo problems getting home child care provider make 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 to work [...] and Gender InformationValue Date RecordedSex Assigned at SztgrJqtvkb14/10/2021 8:51 AM EDTLegal SexFemale 02/16/2017 2:26 PM EDTGender UhwcrbuwPcrjfh45/10/2021 8:51 AM EDTSexual MmekjyuvguwEfkodeuj76/02/2023 8:29 PM ESTdocumented as of this encounter Plan of Treatment DateTypeDepartmentCare Team (Latest Contact Info)Odtggjulsvs65/19/2025 1:30 PM ESTOffice Visit [facility] [address] [place] [phone] Michael Steiner DO [address] [place] [address] documented as of this encounter Goals GoalPatient Goal TypeAssociated ProblemsRecent ProgressPatient-Stated?Author home Jimena Wilson LSW Note: Evaluation of progress towards goal: feeling better documented as of this encounter Visit Diagnoses Not on filedocumented in this encounter Additional Health Concerns AssessmentNoted TimePHQ-9 Depression Total Score: 12:36 PM EDT documented as of this encounter Care Teams Team MemberRelationshipSpecialtyStart DateEnd Date Michael Steiner DO [address] [id number] PCP - GeneralInternal Medicine12/17/23documented as of this encounter
--- OUTSIDE RECORDS SUMMARY | 2025-02-23 10:45 | XMS_ITS | Encounter Summary ---
Author Organization [facility] tem Address [id number] [place] [address] Care Team Providers Care Support Service Tech Name Role Phone Michael Steiner DO Primary Care Provider [phone] Encounter Details DateTypeDepartmentCare Team (Latest Contact Info)Ntwmwkazvzh39/27/2025Results Follow-Up [facility] [address] [place] [address] Kacey Sims RN Basic Metabolic Panel Social History Tobacco UseTypesPacks/DayYears UsedDateSmoking Tobacco: RxhknxEfzxirvspt659 09/1981 - mokeless Tobacco: Never Comments:5-6 cigerettes a da y Alcohol UseStandard Drinks/WeekCommentsNot Currently0 (1 standard drink = 0.6 oz pure alcohol)last use 15 years ago[facility] UtilitiesAnswerDate RecordedIn the past 12 months has the [employer], gas, oil, or water [employer] threatened to shut off services in your home?No12/04/2024Social Connection and Isolation PanelAnswer Date RecordedIn a typical week, how many times do you talk on the phone with family, friends, or neighbors?Three times a week07/25/2023How often do you get together with friends or relatives?Three times a week07/25/2023How often do you attend taoist or jewish services?More than 4 times per year07/25/2023o you belong to any clubs or organizations such as taoist groups, unions, fraternal [...] care, and heating?Not very hard 12/04/2024PHQ-2AnswerDate RecordedTotal Vtgrl998Finencompass health [place] of Occupational Health - Occupational Stress QuestionnaireAnswerDate RecordedDo you feel stress - tense, restless, nervous, or anxious, or unable to sleep at night because yourmind is troubled all the time - these days?Only a baupkd8307/25/2023 Exercise Vital SignAnswerDate RecordedOn average, how many [...] part of a household?No12/04/2024hildcareAnswerDate RecordedDo problems getting registered nurse maternal child make 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 to work [...] and Gender InformationValue Date RecordedSex Assigned at BsorkOiqdog31/10/2021 8:51 AM EDTLegal SexFemale 02/16/2017 2:26 PM EDTGender OfdgljagPehzlg88/10/2021 8:51 AM EDTSexual TeiqlpxfhvtSvianmqm81/02/2023 8:29 PM ESTdocumented as of this encounter Plan of Treatment DateTypeDepartmentCare Team (Latest Contact Info)Zqdahigwjjs05/19/2025 1:30 PM ESTOffice Visit [facility] [address] [place] [phone] Michael Steiner, DO [address] [place] [address] NameTypePriorityAssociated DiagnosesOrder ScheduleBasic Metabolic PanelLab Routine Chronic diastolic heart failure ([facility]) Expected: 03/07/2025 (Approximate), Expires: 02/21/2026documented as of this encounter Goals GoalPatient Goal TypeAssociated ProblemsRecent ProgressPatient-Stated?Author home Jimena Wilson LSW Note: Evaluation of progress towards goal: feeling better documented as of this encounter Visit Diagnoses Diagnosis Chronic diastolic heart failure (CMS-HCC)- Primary Chronic diastolic heart failure documented in this encounter Additional Health Concerns AssessmentNoted TimePHQ-9 Depression Total Score: 12:36 PM EDT documented as of this encounter Care Teams Team MemberRelationshipSpecialtyStart DateEnd Date Michael Steiner DO [address] [place] [address] PCP - GeneralInternal Medicine12/17/23documented as of this encounter
--- OUTSIDE RECORDS SUMMARY | 2025-02-23 10:45 | XMS_ITS | Encounter Summary ---
Author Organization [employer] tem Address [facility] [id number] [address] [place] [address] Care Team Providers Care Extension Professor Name Role Phone Michael Steiner DO Primary Care Provider [phone] Encounter Details DateTypeDepartmentCare Team (Latest Contact Info)Zpdxodqptaz39/29/2025Travel Social History Tobacco UseTypesPacks/DayYears UsedDateSmoking Tobacco: ObznjlJdckjvjicp045 09/1981 - mokeless Tobacco: Never Comments:5-6 cigerettes a da y Alcohol UseStandard Drinks/WeekCommentsNot Currently0 (1 standard drink = 0.6 oz pure alcohol)last use 15 years agoAHC UtilitiesAnswerDate RecordedIn the past 12 months has the [employer], gas, oil, or water [employer] threatened to shut off services in your home?No12/04/2024Social Connection and Isolation PanelAnswer Date RecordedIn a typical week, how many times do you talk on the phone with family, friends, or neighbors?Three times a week07/25/2023How often do you get together with friends or relatives?Three times a week07/25/2023How often do you attend judaism or zoroastrian services?More than 4 times per year07/25/2023o you belong to any clubs or organizations such as judaism groups, unions, fraternal [...] care, and heating?Not very hard 12/04/2024PHQ-2AnswerDate RecordedTotal Jzoza840Finhighland ridge hospital [place] of Occupational Health - Occupational Stress QuestionnaireAnswerDate RecordedDo you feel stress - tense, restless, nervous, or anxious, or unable to sleep at night because yourmind is troubled all the time - these days?Only a isepdi9207/25/2023 Exercise Vital SignAnswerDate RecordedOn average, how many [...] of a household?No12/04/2024hildcareAnswerDate RecordedDo problems 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 [...] and Gender InformationValue Date RecordedSex Assigned at EkosmUoshdx90/10/2021 8:51 AM EDTLegal SexFemale 02/16/2017 2:26 PM EDTGender XqgogsecRfdizm43/10/2021 8:51 AM EDTSexual EskknhvjehpBjsdbevx45/02/2023 8:29 PM ESTdocumented as of this encounter Plan of Treatment DateTypeDepartmentCare Team (Latest Contact Info)Xjcgqivsocu26/19/2025 1:30 PM ESTOffice Visit [facility] [address] [place] [phone] Michael Steiner DO [address] [place] [address] documented as of this encounter Goals GoalPatient Goal TypeAssociated ProblemsRecent ProgressPatient-Stated?Author home Jimena Wilson LSW Note: Evaluation of progress towards goal: feeling better documented as of this encounter Visit Diagnoses Not on filedocumented in this encounter Additional Health Concerns AssessmentNoted TimePHQ-9 Depression Total Score: 12:36 PM EDT documented as of this encounter Care Teams Team MemberRelationshipSpecialtyStart DateEnd Date Michael Steiner DO [address] [place] [address] PCP - GeneralInternal Medicine12/17/23documented as of this encounter
--- OUTSIDE RECORDS SUMMARY | 2025-02-23 10:45 | XMS_ITS | Encounter Summary ---
Author Organization [employer] tem Address [facility] [id number] [address] [place] [address] Care Team Providers Care Admissions Specialist Name Role Phone Michael Steiner DO Primary Care Provider [phone] Encounter Details DateTypeDepartmentCare Team (Latest Contact Info)Pjnhbekghsy09/27/2025Travel Social History Tobacco UseTypesPacks/DayYears UsedDateSmoking Tobacco: EvjrznWfabwsyuhx165 09/1981 - mokeless Tobacco: Never Comments:5-6 cigerettes a da y Alcohol UseStandard Drinks/WeekCommentsNot Currently0 (1 standard drink = 0.6 oz pure alcohol)last use 15 years agoAHC UtilitiesAnswerDate RecordedIn the past 12 months has the [employer], gas, oil, or water [employer] threatened to shut off services in your home?No12/04/2024Social Connection and Isolation PanelAnswer Date RecordedIn a typical week, how many times do you talk on the phone with family, friends, or neighbors?Three times a week07/25/2023How often do you get together with friends or relatives?Three times a week07/25/2023How often do you attend methodist or anglican services?More than 4 times per year07/25/2023o you [...] care, and heating?Not very hard 12/04/2024PHQ-2AnswerDate RecordedTotal Nvrrt079Finst. [facility] [place] of Occupational Health - Occupational Stress QuestionnaireAnswerDate RecordedDo you feel stress - tense, restless, nervous, or anxious, or unable to sleep at night because yourmind is troubled all the time - these days?Only a wtvgth6007/25/2023 Exercise Vital SignAnswerDate RecordedOn average, how many [...] a household?No12/04/2024hildcareAnswerDate RecordedDo problems getting child and family therapist make 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 to work [...] and Gender InformationValue Date RecordedSex Assigned at HqyncXwdjdo23/10/2021 8:51 AM EDTLegal SexFemale 02/16/2017 2:26 PM EDTGender DipyoxrjZxigxt21/10/2021 8:51 AM EDTSexual RajembooeipNctxunpm44/02/2023 8:29 PM ESTdocumented as of this encounter Plan of Treatment DateTypeDepartmentCare Team (Latest Contact Info)Oettyjpptfh68/19/2025 1:30 PM ESTOffice Visit [facility] [address] [place] [phone] Michael Steiner DO [address] [place] [address] documented as of this encounter Goals GoalPatient Goal TypeAssociated ProblemsRecent ProgressPatient-Stated?Author home Jimena Wilson LSW Note: Evaluation of progress towards goal: feeling better documented as of this encounter Visit Diagnoses Not on filedocumented in this encounter Additional Health Concerns AssessmentNoted TimePHQ-9 Depression Total Score: 12:36 PM EDT documented as of this encounter Care Teams Team MemberRelationshipSpecialtyStart DateEnd Date Michael Steiner DO [address] [place] [address] PCP - GeneralInternal Medicine12/17/23documented as of this encounter
--- OUTSIDE RECORDS SUMMARY | 2025-02-23 10:47 | XMS_ITS | CCD ---
Author Organization [facility] Care Team Providers Care Auger Operator Name Role Phone Hercher, Nadege L Unavailable Unavailable Hercher, Nadege L Unavailable Unavailable Provider, None Unavailable Unavailable JEFFERSON Fowler Primary Care Provider MD John Carson Attending Provider John Carson Unavailable Kg Huerta Admitting Unavailab Saqib Cordero Primary Care Unavailable Kg Huerta Attending Unavailab Saqib Cordero Primary Care Unavailable John Carson Attending [...] NO PCP, NO PCP Primary Care Unavailable YONG LEÓNU GOZACA RAleida Admitting Unavaila YONG MendezU TAJ Oliva Attending Unavaila BECKY Espinal Referring Unavailable NO PCP, NO PCP Primary Care Unavailable CEE NELSON Consulting Unavailable MARANDA PRESCOTT Consulting Unavailable Rajni Cardozo MD Primary Care Provider Yuhas Rajni CABRERA Primary Care Provider Rajni Cardozo DO Primary Care Provider Obdulia DORajni Primary Care Provider No Pcp, No Pcp Primary Care Provider Unavailabl e YUSHIMAS, RAJNI L Referring Unavailable YUHAS, RAJNI L Primary Care Unavailable YUHAS, RAJNI L Referring Unavailable YUHAS, RAJNI L Primary Care Unavailable YUHAS, RAJNI L Referring Unavailable YUHAS, RAJNI L Primary Care Unavailable YUHAS, RAJNI L Referring Unavailable YUHAS, RAJNI L Primary Care Unavailable YUHAS, RAJNI L Referring Unavailable YUHAS, RAJNI L Primary Care Unavailable Rajni Cardozo DO Primary Care Provider Rajni Cardozo MD Primary Care Provider SYDNIE GUERRERO Attending Unavailable ALEKSANDAREUSEBIA VASQUEZ Attending Unavailable ALEKSANDAREUSEBIA VASQUEZ Referring Unavailable ALEKSANDAREUSEBIA VASQUEZ Attending Unavailable ALEKSANDAREUSEBIA Referring Unavailable ALEKSANDAREUSEBIA Attending Unavailable ALEKSANDAREUSEBIA Attending Unavailable ALEKSANDAREUSEBIA Referring Unavailable ALEKSANDAR, EUSEBIA Obregon Attending Unavailable SYDNIE GUERRERO Attending Unavailable YUHASRAJNI [...] Unavailable YUHAS, RAJNI L Primary Care Unavailable Yuhas DORajni Primary Care Provider [phone] Dk MIJARES, Ligia Zee Attending Unavailable Dk MIJARES, Andrius Zee Attending Unavailable Dk MIJARES, Andrius Alexanderytheather Attending Unavailable Dk MIJARES, Andrius Alexanderytheather Attending Unavailable Dk MIJARES, Andrius Alexanderytheather Attending Unavailable Dk MIJARES, Andrius Saadia Attending Unavailable MYRIAM PEACOCK Attending Unavailable YUHAS, RAJNI Janae Referring Unavailable YUHAS, RAJNI L Primary Care Unavailable YUHAS, RAJNI L Referring Unavailable YUHAS, RAJNI L Primary Care Unavailable YUHAS, RAJNI L Referring Unavailable YUHAS, RAJNI L Primary Care Unavailable ODESSA COOK Attending Unavailable LUKASHASRAJNI Referring Unavailable YUHAS, RAJNI Cardoso Primary Care Unavailable YUHAS, RAJNI Cardoso Attending Unavailable VICKYSRAJNI Referring Unavailable YUHAS, RAJNI Cardoso Primary Care [...] Unavailable ODESSA COOK Referring Unavailable YUHAS, RAJNI Janae Primary Care Unavailable YUHASRAJNI Referring Unavailable VICKYSRAJNI Primary Care Unavailable CYNTHIA BUCHANAN Referring Unavailable VICKYS RAJNI Janae Primary Care Unavailable RAJNI CARDOZO Referring Unavailable VICKYS, RAJNI Cardoso Primary Care Unavailable RAJNI CARDOZO Admitting Unavailable RAJNI CARDOZO Attending Unavailable VICKYS, RAJNI Cardoso Referring Unavailable VICKYSRAJNI Primary Care Unavailable HARIRI, IMAD M Attending Unavailable RAJNI CARDOZO Referring Unavailable VICKYSRAJNI Primary Care Unavailable VICKYS, RAJNI Cardoso Primary Care Unavailable BRUSAMIA, JUAN M Attending Unavailable HARIRI, IMAD M Referring Unavailable VICKYSRAJNI Primary Care Unavailable Allergies Allergy ClassificationReported Allergen(s)Allergy TypeDate of OnsetReaction(s) Facility (1 source)morphine; Translations: [Morphine Sulfate][facility] ([facility] sources)penicillin; Translations: [penicillin][facility] (20 sources)Morphine; Translations: [morphine]Drug Vqwuziw77-70-3100 Hallucinations, Other (See Comments)[facility] (20 sources)Penicillins; Translations: [Penicillins]Allergy to substance 69-63-1975JnoxkfoqaygBzsonazhuMer[facility] (14 sources)fentaNYL; Translations: [FENTANYL]Drug Xitxkiv01-11-3909Fycdd (See Comments)[facility] Medications Current Medications MedicationDrug Class(es)DatesSig (Normalized)Sig (Original)acetaminophen 325 mg oral tablet (20 sources)Start: 63-43-9776jbda 2 tablets by mouth every four hours as needed for pain and headacheacetaminophen (TYLENOL) 325 mg tablet Take 2 tablets (650 mg total) by mouth every 4 (four) hours as needed for pain or headaches. 30 tablet 07/27/2023 ActiveStart: 07-25-2023 End: 18-36-1875zfcu 1 tablet by mouth every four hours as needed for headache and vbhl543 mg, oral, Every 4 hours PRN, headaches, moderate pain - pain scale 4-6, Starting on 07/25/23at 2101take 1 tablet by mouth every four hours as needed for painacetaminophen (Tylenol) 325 MG tablet Take 325 mg by mouth every 4 (four) hours if needed for mild pain [id number] 200 actuat albuterol 0.09 mg/actuat metered dose inhaler (20 sources)beta2-Adrenergic AgonistStart: 09-21-2024 End: 27-29-4819pvws 2 puff(s) by inhalation every four hours for wheezing albuterol HFA 90 mcg/act inhaler Indications: Chronic obstructive pulmonary disease, unspecified COPD type (HCC) Inhale 2 puffs every 4 (four) hours if needed for wheezing 18 g 5 09/21/2024 Activetake 0.63 mg by inhalation every six hours as needed for wheezingalbuterol (ACCUNEB) 0.63 mg/3 mL nebulizer solution Inhale 3 mL (0.63 mg total) by nebulization every 6 (six) hours as needed for wheezing. Activealbuterol (PROVENTIL HFA;VENTOLIN HFA) 90 mcg/actuation inhaler Activealbuterol 0.63 MG/3ML nebulizer solution Take 0.63 mg by nebulization every 6 (six) hours if neededfor wheezing Activealbuterol (PROVENTIL HFA;VENTOLIN HFA) 90 mcg/actuation inhaler INHALE 2 PUFF BY MOUTH AND INTO THE LUNGS EVERY 4-6 HOURS NEEDED FOR BREATHING ISSUES FOR 17 DAYS for 17 Active Albuterol ActiveARIPiprazole 15 mg oral tablet (20 sources)Atypical AntipsychoticStart: 07-27-2023 End: 81-49-2284KDDTobmbmite (ABILIFY) tablet 15 mgStart: 05-13-2023 End: 21-84-5570coyy 1 tablet by mouth once dailyARIPiprazole (ABILIFY) 15 mg tablet Take 1 tablet (15 mg total) by mouth nightly. 05/13/2023 ActiveStart: 03-60-8550syei 10 mg by mouth once daily at bedtimeAripiprazole Active 10 MG PO Daily at bedtime June 22, 2018 1:00amStart: 88-12-5296hsgt 5 mg by mouth once dailyAripiprazole Active 5 MG PO Daily June 08, 2018 1:00am End: 44-09-2468mlcf 1 tablet by mouth once dailyARIPiprazole (Abilify) 15 MG disintegrating tablet Take 15 mg by mouth Daily 03/17/2024 Discontinued (Med list cleanup) End: 87-34-4143bcmi 2 tablets by mouth once dailyARIPiprazole (ABILIFY) 10 mg tablet Take 2 tablets (20 mg total) by mouth nightly. 0 06/01/2023 Discontinued (Duplicate Listing)take 1 tablet by mouth every twenty-four hoursAbilify 30 MG 1 tablet Orally Once a day Activeatorvastatin 80 mg oral tablet (20 sources)HMG-CoA Reductase InhibitorStart: 13-52-7859uomn 1 tablet by mouth in the morningatorvastatin (LIPITOR) 80 mg tablet Indications: 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 , Hx of hyperlipidemia Take 1 tablet (80 mg total) by mouth in the morning. 90 tablet 3 04/26/2024 ActiveStart: 51-98-3690depr 1 tablet by mouth in the morning atorvastatin (LIPITOR) 80 mg tablet Indications: 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 , Hx of hyperlipidemia TAKE 1 TABLET (80 MG TOTAL) BY MOUTH IN THE MORNING 90 tablet 3 04/09/2024 ActiveStart: 07-26-2023 End: 69-69-3768yfyh 80 mg by mouth once daily80 mg, oral, Daily, First dose on 07/26/23 at 0900, Look-alike/sound-alike medication - verify indication for use.Start: 04-09-2023 End: 91-84-3764vutz 1 tablet by mouth in the morningatorvastatin (LIPITOR) 80 mg tablet Indications: 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 , Hx of hyperlipidemia Take 1 tablet (80 mg total) by mouth in the morning. 90 tablet 3 04/26/2024 Activebenztropine mesylate 0.5 mg oral tablet (1 source)Anticholinergic, AntihistamineStart: 34-63-2303dwdq 0.5 mg by mouth every six hoursBenztropine Active 0.5 MG PO Q6H 60 June 22, 2018 1:81ts071 actuat budesonide 0.16 mg/actuat / formoterol fumarate 0.0048 mg/actuat / glycopyrrolate 0.009 mg/actuat metered dose inhaler (20 sources)Corticosteroid, beta2-Adrenergic AgonistStart: 68-90-9856yxbr 2 puff(s) by inhalation in the inrgyjxtevgezgrlp-wegxndpo-sckulvxsgx (BREZTRI AEROSPHERE) 160-9-4.8 mcg/actuation HFA aerosol inhaler Indications: Chronic obstructive pulmonary disease, unspecified COPD type ([facility]-HCC) Inhale 2 puffs in the morning and 2 puffs before bedtime. 10.7 g 10 06/25/2023 Active End: 99-38-5379Rgpxtpc-Glycopyrrol-Formoterol (Breztri Aerosphere) 160-9-4.8 MCG/ACT aerosol Inhale 09/21/2024 Discontinued (Reorder)celecoxib 200 mg oral capsule (20 sources)Nonsteroidal Anti-inflammatory DrugStart: 02-22-2024 End: 65-30-3200lyfhzeexr (CeleBREX) 200 MG capsule 02/22/2024 Active cholecalciferol 0.125 mg oral tablet (20 sources)Vitamin Dtake 2 tablets by mouth in the morningcholecalciferol, vitamin D3, 5,000 units tablet Take 2 tablets (10,000 Units total) by mouth in themorning. Activetake 1 capsule by mouth once dailycholecalciferol (Vitamin D- 3) 125 MCG (5000 UT) capsule Take 5,000 Units by mouth Daily ActiveclonazePAM 0.5 mg oral tablet (20 sources)BenzodiazepineStart: 33-47-3972ussu 1 tablet by mouth in the morning, then take 1 tablet by mouth at bedtimeclonazePAM (KlonoPIN) 0.5 mg tablet Take 1 tablet (0.5 mg total) by mouth in the morning and 1 tablet (0.5 mg total) before bedtime. 09/14/2023 ActiveStart: 07-26-2023 End: 26-39-4145zgxcqgiZQG (KlonoPIN) tablet 0.5 mgStart: 05-13-2023 End: 76-62-7252rcxyxdqVGJ (KlonoPIN) 0.25 mg disintegrating tablet Dissolve 1 tablet (0.25 mg total) on tongue 2 (two) times a day as needed. 0 05/13/2023 ActiveStart: 05-13-2023 End: 57-99-4260winbxnhNTY (KlonoPIN) 0.25 mg disintegrating tablet Dissolve 2 tablets (0.5 mg total) on tongue 2 (two) times a day as needed. 05/13/2023 09/24/2023 Discontinued (Dose adjustment)Start: 01-07-2018 End: 57-88-0018dzvi 0.5 mg by mouth twice dailyClonazepam Discontinued 0.5 MG PO Twice daily January 07, 2018 12:00am January 18, 2018 11:12amtake 1 tablet by mouth every twenty-four hoursKlonoPIN 0.5 MG 1 tablet Orally Once a day Activediclofenac sodium 50 mg / miSOPROStol 0.2 mg delayed release oral tablet (3 sources)Nonsteroidal Anti-inflammatory Drug, Prostaglandin E1 AnalogStart: 32-64-6673qxgw 1 tablet by mouth in the morningdiclofenac-miSOPROStol (ARTHROTEC 50) 50-200 mg-mcg EC tablet Take 1 tablet by mouth in the morningand 1 tablet before bedtime. 60 tablet 2 01/04/2025 Twevkdvvpyhr-niefwrrvx-xja,al-simeth (FIRST-MOUTHWASH BLM) 51-356-793-40 mg/30mL mouthwash (3 sources)Start: 96-58-3315mjif 5 mL by mouth four times daily as needed cppdvy-lomniimcg-ixx,al-simeth (FIRST-MOUTHWASH BLM) 20-161-945-40 mg/30mL mouthwash Indications: Stomatitis Take 5 mL by mouth 4 (four) times a day as needed for mucositis or mouth/gum irritation. 119 mL 1 01/10/2025 Activedoxepin hydrochloride 75 mg oral capsule (20 sources)Tricyclic Antidepressantdoxepin (SINEquan) 75 mg capsule Active End: 32-84-7961karh 3 capsules by mouth once dailydoxepin (SINEquan) 25 mg capsule Take 3 capsules (75 mg total) by mouth nightly. 0 06/01/2023 Discon tinued (Duplicate Listing)empagliflozin 10 mg oral tablet (20 sources)Sodium-Glucose Cotransporter 2 InhibitorStart: 04-12-2024 End: 16-06-3694fryi 1 tablet by mouth in the morning, then take 1 tablet by mouth in the morningempagliflozin (JARDIANCE) 10 mg tablet tablet Indications: Chronic heart failure with preserved ejection fraction (CMS-HCC) , Atherosclerosis of [place] coronary artery of [place] heart without angina p ectoris Take 1 tablet (10 mg total) by mouth in the morning. TAKE 1 TABLET (10 MG TOTAL) BY MOUTH IN THE MORNING. 90 tablet 1 07/15/2024 ActiveStart: 09-01-2022 End: 55-25-6031nbyn 1 tablet by mouth in the morningJARDIANCE 10 mg tablet tablet Indications: Chronic heart failure with preserved ejection fraction (CMS- HCC) , 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 TAKE 1 TABLET (10 MG TOTAL) BY MOUTH IN THE MORNING 90 tablet 3 10/02/2023 Activetake 25 mg by mouth once dailyJARDIANCE 25 mg daily orally Activeezetimibe 10 mg oral tablet (20 sources)Dietary Cholesterol Absorption InhibitorStart: 07-08-2024 End: 05-22-8966apjv 1 tablet by mouth in the morningezetimibe (Zetia) 10 MG tablet Take 10 mg by mouth in the morning. 07/08/2024 Activefolic acid 1 mg oral tablet (1 source)Start: 15-10-2286zfee 1 mg by mouth once dailyFolic Acid Active 1 MG PO Daily June 22, 2018 1:00am12 hr guaiFENesin 600 mg extended release oral tablet (10 sources)Start: 21-05-6030zqwp 1 tablet by mouth onceguaiFENesin (MUCINEX) 600 mg tablet extended release 12hr Take 1 tablet (600 mg total) by mouth every 12 (twelve) hours. 14 tablet 12/06/2024 ActivehydrOXYzine hydrochloride 25 mg oral tablet (20 sources)AntihistamineStart: 96-12-5548llgv 1 tablet by mouth twice daily as needed for anxietyhydrOXYzine (ATARAX) 25 mg tablet Take 1 tablet (25 mg total) by mouth 2 (two) times a day as needed for anxiety. 12/06/2024 ActiveStart: 01-68-4106nfpf 1 tablet by mouth once dailyhydrOXYzine HCl (Atarax) 25 MG tablet Take 25 mg by mouth Daily 02/29/2024 ActiveStart: 51-28-3708ejtr 50 mg by mouth three times dailyHydroxyzine Pamoate Active 50 MG PO Three times daily June 22, 2018 1:00amibuprofen 800 mg oral tablet (2 sources)Nonsteroidal Anti-inflammatory Drugtake 1 tablet by mouth every six hours as needed for painibuprofen (MOTRIN) 800 mg tablet Take 1 tablet (800 mg total) by mouth every 6 (six) hours as needed for pain. 0 ActivelamoTRIgine 150 mg oral tablet (20 sources)Mood Stabilizer, Anti-epileptic AgentStart: 58-91-5025mkqc 1 tablet by mouth in the morninglamoTRIgine (LaMICtal) 150 mg tablet Take 1 tablet (150 mg total) by mouth in the morning. 10/07/2023 ActiveStart: 07-26-2023 End: 11-13-6888frjy 100 mg by mouth once ligoo604 mg, oral, Daily, First dose on 07/26/23 at 0900, Look-alike/sound-alike medication - verify indication for use. End: 35-86-7370nkon 4 tablets by mouth in the morninglamoTRIgine (LaMICtal) 25 mg tablet Take 4 tablets (100 mg total) by mouth in the morning. 0 06/01/2023 Discontinued (Dose adjustment)Montesano (1 source)Montesano Activelithium carbonate 450 mg extended release oral tablet (1 source)Start: 65-50-1026hxnc 900 mg by mouth once daily at bedtimeLithium Carbonate Active 900 MG PO Daily at bedtime 60 June 22, 2018 1:00am methocarbamol 750 mg oral tablet (8 sources)Muscle Relaxant End: 50-39-5609hcjbpspulvunt (Robaxin) 750 MG tablet TAKE 1 TABLET BY MOUTH EVERY 12 HOURS FOR 30 DAYS for 30 Jyzgwm05 hr metoprolol succinate 25 mg extended release oral tablet (13 sources)beta-Adrenergic BlockerStart: 28-43-3356dryt 1 tablet by mouth once dailymetoprolol succinate XL (TOPROL XL) 25 mg 24 hr tablet Indications: Chronic heart failure with preserved ejection fraction (CMS-HCC) , Pulmonary hypertension (CMS-HCC) , Nonrheumatic tricuspid valve regurgitation , Essential hypertension , 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 , History of four vessel coronary artery bypass graft , NSTEMI (non-ST elevated myocardial infarction) ([facility]-HCC) Take 1 tablet (25 mg total) by mouth nightly. 30 tablet 11 11/28/2024 Activemirtazapine 45 mg oral tablet (3 sources)Start: 18-88-6149ihau 45 mg by mouth once daily at bedtimeMirtazapine Active 45 MG PO Daily at bedtime June 22, 2018 1:00amStart: 01-18-2018 End: 93-53-2902lcew 45 mg by mouth at bedtimeMirtazapine Discontinued 45 MG PO Bedtime January 18, 2018 12:00am June 08, 2018 11:26amStart: 01-07-2018 End: 01-94-1542zpuy 30 mg by mouth at bedtimeMirtazapine Discontinued 30 MG PO Bedtime January 07, 2018 12:00am January 18, 2018 11:12am24 hr nicotine 0.875 mg/hr transdermal system (2 sources)Cholinergic Nicotinic AgonistStart: 14-90-6100Vnjvihud Active 1 EACH TRANSDERML Daily June 22, 2018 1:00amStart: 01-18-2018 End: 85-82-7844Foyhexet Discontinued 1 EACH TRANSDERML Daily January 18, 2018 12:00am June 08, 2018 11:26amOxygen (13 sources)oxygen Inhale 2 L/min continuously. Activepantoprazole 40 mg delayed release oral tablet (20 sources)Proton Pump InhibitorStart: 07-01-2023 End: 30-88-1961dadi 1 tablet by mouth once daily before breakfastpantoprazole (PROTONIX) 40 mg EC tablet Indications: Gastro-esophageal reflux disease without esophagitis Take 1 tablet (40 mg total) by mouth every morning before breakfast. 90 tablet 11/07/2024 Activetake 2 tablets by mouth every twenty-four hoursPantoprazole Sodium 40 MG 2 tablets Orally Once a day Activepregabalin 100 mg oral capsule (20 sources)Start: 34-50-3594sbxg 1 capsule by mouth at bedtimepregabalin (LYRICA) 100 mg capsule Indications: Peripheral polyneuropathy Take 1 capsule (100 mg total) by mouth before bedtime. 12/06/2024 ActiveStart: 03-07-2024 End: 97-14-4998rygg 1 capsule by mouth at bedtimepregabalin (LYRICA) 100 mg capsule Indications: Peripheral polyneuropathy Take 1 capsule (100 mg total) by mouth before bedtime. 12/06/2024 ActiveStart: 01-26-2024 End: 61-27-0223eakg 1 capsule by mouth in the morning, then take 1 capsule by mouth at bedtimepregabalin (LYRICA) 50 mg capsule Indications: Peripheral polyneuropathy Take 1 capsule (50 mg total) by mouth in the morning and 1 capsule (50 mg total) before bedtime. 60 capsule 01/26/2024 03/07/2024 Discontinued (Reorder)propranolol hydrochloride 40 mg oral tablet (20 sources)beta-Adrenergic BlockerStart: 10-07-2024 End: 02-68-8035uthp 1 tablet by mouth at bedtime, then take 1 tablet by mouth at bedtimepropranoloL (INDERAL) 40 mg tablet Take 1 tablet (40 mg total) by mouth in the morning and at bedtime. TAKE 1 TABLET (40 MG TOTAL) BY MOUTH IN THE MORNING AND BEFORE BEDTIME 11/08/2024 ActiveStart: 07-25-2023 End: 33-56-9973aywq 40 mg by mouth twice daily40 mg, oral, 2 times daily, First dose on 07/25/23 at 2115, Look-alike/sound-alike medication - verify indication for use. End: 73-59-7014cokk 1 capsule by mouth every twenty-four hours at bedtime propranolol XL (Innopran XL) 80 MG 24 hr capsule Take 80 mg by mouth at bedtime Do not crush, chew,or split. Activetake 1 tablet by mouth every twelve hours Propranolol HCl 80 MG 1 tablet Orally Twice a day Activesalmon calcitonin 200 unt/actuat nasal spray (20 sources)CalcitoninStart: 09-09-2023 End: 39-06-4702btvk 1 spray(s) nasal route in the morningcalcitonin, salmon, (Miacalcin) 200 UNIT/ACT nasal spray Administer 1 spray into affected nostril(s) in the morning. 09/09/2023 Activespironolactone 25 mg oral tablet (20 sources)Aldosterone AntagonistStart: 04-12-2024 End: 87-76-1022jcmb 1 tablet by mouth in the morningspironolactone (ALDACTONE) 25 mg tablet Indications: Chronic diastolic heart failure (CMS-HCC) Take1 tablet (25 mg total) by mouth in the morning. 90 tablet 3 02/06/2025 ActiveStart: 11-10-2022 End: 86-91-8734eayb 1 tablet by mouth in the morningspironolactone (ALDACTONE) 25 mg tablet Indications: Shortness of breath , Chronic heart failure with preserved ejection fraction (CMS-HCC) TAKE 1 TABLET (25 MG TOTAL) BY MOUTH IN THE MORNING 90 tablet 3 11/02/2023 ActiveSUMAtriptan 50 mg oral tablet (20 sources)Serotonin-1b and Serotonin-1d Receptor AgonistStart: 06-22-2023 End: 63-85-9678WSKNhmkeevs (IMITREX) 50 mg tablet TAKE 1 TABLET BY MOUTH DIRECTED 0 06/22/2023 ActiveStart: 10-16-2021 End: 56-60-9104IAXLmizmedu (IMITREX) 25 mg tablet Take by mouth as needed. 10/16/2021 09/24/2023 Discontinued (Duplicate Listing)SUMAtriptan (Imitrex) 25 MG tablet Take 25 mg by mouth 1 (one) time if needed for migraine May repeat dose once in 2 hours if no relief. Do not exceed 2 doses in 24 hours. Active topiramate 100 mg oral tablet (20 sources)Start: 01-04-2024 End: 80-37-3511wzps 1 tablet by mouth at bedtimetopiramate (Topamax) 100 MG tablet TAKE 1 TABLET (100 MG TOTAL) BY MOUTH IN THE MORNING AND AT BEDTIME FOR 90 DAYS. 03/30/2024 ActiveStart: 10-06-2023 End: 27-92-2750nxcu 1 tablet by mouth twice dailytopiramate (TOPAMAX) 50 mg tablet Indications: Spinal stenosis of lumbar region with neurogenic talib dication take 1 tablet by mouth twice a day for 90 days 180 tablet 01/01/2024 01/04/2024 Discontinuedtake 1 tablet by mouth twice dailytopiramate (TOPAMAX) 50 mg tablet TAKE 1 TABLET BY MOUTH TWICE A DAY FOR 30 DAYS Active End: 65-92-1723fqhj 1 tablet by mouth three times dailytopiramate (TOPAMAX) 25 mg tablet Take 1 tablet (25 mg total) by mouth 3 (three) times a day. 0 08/2023 Discontinued (Dose adjustment)torsemide 20 mg oral tablet (20 sources)Loop DiureticStart: 24-88-8151dnhk 2 tablets by mouth once daily torsemide (DEMADEX) 20 mg tablet Indications: Chronic diastolic heart failure (CMS-HCC) Take 2 tablets (40 mg total) by mouth daily. 60 tablet 11 02/06/2025 ActiveStart: 12-15-2024 End: 82-56-5870bpoe 3 tablets by mouth once dailytorsemide (DEMADEX) 10 mg tablet Take 3 tablets (30 mg total) by mouth daily. 12/15/2024 02/06/2025 DiscontinuedStart: 18-08-1421gwoh 3 tablets by mouth once daily as needed, then take 3 tablets by mouth once daily as neededtorsemide (DEMADEX) 20 mg tablet Indications: Chronic heart failure with preserved ejection fraction (CMS-HCC) , Pulmonary hypertension (CMS-HCC) , Nonrheumatic tricuspid valve regurgitation , Essential hypertension , 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, History of four vessel coronary artery bypass graft , NSTEMI (non-ST elevated myocardial infarction) (CMS-HCC) Take 3 tablets (60 mg total) by mouth daily. Take 3 tablets daily. May take take an additional tablet as needed for swelling 300 tablet 3 11/28/2024 ActiveStart: 04-12-2024 End: 27-28-4818ttzn 4 tablets by mouth once daily in the morningtorsemide (DEMADEX) 20 mg tablet Indications: Chronic heart failure with preserved ejection fraction (CMS-HCC) Take 4 tablets in the AM by mouth daily 360 tablet 04/12/2024 07/07/2024 Discontinued (Therapy completed)Start: 87-17-0814trda 4 tablets by mouth once daily in the morningtorsemide (DEMADEX) 20 mg tablet Indications: Chronic heart failure with preserved ejection fraction (CMS-HCC) Take 4 tablets in the AM by mouth daily 03/07/2024 ActiveStart: 11-06-2023 End: 08-59-9556ksgg 4 tablets by mouth in the morning, then take 4 tablets by mouth in the morning, then take 2 tablets by mouth in the eveningtorsemide (DEMADEX) 20 mg tablet Indications: Chronic heart failure with preserved ejection fraction (CMS-HCC) Take 4 tablets in the AM by mouth on Thu, , and Thursday. Take 4 tablet in the AM and 2 tablets in the PM on Thu, Thu and Thursday 438 tablet 3 01/21/2024 ActiveStart: 31-92-8692pcol 2 tablets by mouth once dailytorsemide 40 mg tablet Take 80 mg by mouth daily. 08/29/2023 ActiveStart: 07-26-2023 End: 16-45-4483ouagipktw (DEMADEX) tablet 80 mgStart: 46-31-8427vasi 4 tablets by mouth once daily as needed, then take 4 tablets by mouth in the morning as needed, then take 2 tablets by mouth in the evening as neededtorsemide (DEMADEX) 20 mg tablet Indications: Shortness of breath , Chronic heart failure with preserved ejection fraction (CMS-HCC) Take 4 tablets (80 mg total) by mouth daily. TAKE 4 TABLETS BY MOUTH IN THE MORNING AND 2 TABS IN THE EVENING PRN 540 tablet 1 05/29/2023 ActiveStart: 88-25-9194doey 4 tablets by mouth in the morning, then take 2 tablets by mouth in the eveningtorsemide (DEMADEX) 20 mg tablet Indications: Shortness of breath , Chronic heart failure with preserved ejection fraction (CMS-HCC) TAKE 4 TABLETS BY MOUTH IN THE MORNING AND 2 TABS IN THE EVENING 540 tablet 1 03/05/2023 Activetake 1 tablet by mouth once daily torsemide (Demadex) 20 MG tablet Take 20 mg by mouth Daily Active End: 15-44-6897glim 1 tablet by mouth three times dailytorsemide (DEMADEX) 10 mg tablet Take 1 tablet (10 mg total) by mouth 3 (three) times a day. 12/15/2024 Discontinuedtake 2 tablets by mouth once dailyTorsemide 40 MG 2 tablets Orally Once a day ActivetraZODone hydrochloride 100 mg oral tablet (2 sources)Serotonin Reuptake InhibitorStart: 74-54-8994mptn 100 mg by mouth once daily at bedtimeTrazodone Active 100 MG PO Daily at bedtime June 22, 2018 1:00amStart: 01-18-2018 End: 85-49-8121tdxj 100 mg by mouth once daily at bedtimeTrazodone Discontinued 100 MG PO Daily at bedtime January 18, 2018 12:00am June 08, 2018 11:26amvalsartan 40 mg oral tablet (1 source)Angiotensin 2 Receptor BlockerStart: 46-69-0493nnhd 1 tablet by mouth in the morningvalsartan (DIOVAN) 40 mg tablet Indications: Chronic diastolic heart failure (CMS-HCC) , Pulmonary hypertension (CMS-HCC) Take 1 tablet (40 mg total) by mouth in the morning. 30 tablet 11 02/06/2025 Activevitamin b12 1 mg oral tablet (20 sources)Vitamin K21Jgraq: 04-42-6258ftvl 1 tablet by mouth in the morning cyanocobalamin 1000 MCG tablet Indications: B12 deficiency TAKE 1 TABLET (1,000 MCG TOTAL) BY MOUTHIN THE MORNING 90 tablet 1 04/13/2024 ActiveVitamin D 50 MCG (1999 UT) (1 source)take 1 capsule by mouth once dailyVitamin D 50 MCG (1999 UT) 1 capsule Orally Once a day Activevortioxetine 10 mg oral tablet (19 sources)Start: 87-36-4908ozfo 1 tablet by mouth in the morningTRINTELLIX 10 mg tablet Take 1 tablet (10 mg total) by mouth in the morning. 10/03/2024 Active Completed/Discontinued Medications MedicationDrug Class(es)DatesSig (Normalized)Sig (Original)acetaminophen 325 mg / HYDROcodone bitartrate 5 mg oral tablet (15 sources)Opioid AgonistStart: 09-09-2023 End: 14-02-2362KBFNRokvakw-acetaminophen (NORCO) 5-325 mg per tablet Indications: Closed wedge compression fracture of T6 vertebra with routine healing Take 1 tablet by mouth 2 (two) times a day as needed for pain.Max Daily Amount: 2 tablets 60 tablet 10/01/2023 11/02/2023 Discontinued (Therapy completed)Start: 08-29-2023 End: 36-20-3832MQUYJuqroqh-acetaminophen (NORCO) 5-325 mg per tablet Indications: Closed wedge compression fracture of T6 vertebra with routine healing Take 1 tablet by mouth 3 (three) times a day as needed for pain. Max Daily Amount: 3 tablets 15 tablet 08/29/2023 09/09/2023 Discontinued (Reorder) albuterol 0.833 mg/ml / ipratropium bromide 0.167 mg/ml inhalation solution (3 sources)Anticholinergic, beta2-Adrenergic AgonistStart: 07-25-2023 End: mL, nebulization, Every 6 hours, First dose on 07/25/23 at 2115, Implement INPATIENT/ED Bronchodilator Clinical Practice Guidelines? Yes, Document: \[email or web address]\epic\EPIC_Reference\Orders\Respiratory Care Guidelines\CPG Bronchodilator 2020.pdfStart: 07-25-2023 End: 85-63-8149ieyjuhlofna-albuteroL (DUONEB) 0.5 mg-3 mg(2.5 mg base)/3 mL nebulizer solution 3 mLamitriptyline hydrochloride 100 mg oral tablet (9 sources)Tricyclic AntidepressantStart: 06-01-2023 End: 09-16-4483ixxq 0.5 tablet by mouth once dailyamitriptyline (ELAVIL) 100 mg tablet Take 0.5 tablets (50 mg total) by mouth nightly. 0 06/01/2023 07/01/2023 Discontinued (Therapy completed)Start: 10-16-2021 End: 43-75-1361zgiv 1 tablet by mouth once dailyamitriptyline (ELAVIL) 100 mg tablet Take 1 tablet (100 mg total) by mouth nightly. 0 10/16/2021 06/01/2023 Discontinuedapixaban 5 mg oral tablet (20 sources)Factor Xa InhibitorStart: 08-31-2023 End: 12-51-7118bsnl 2 tablets by mouth twice daily, then take 1 tablet by mouth twice dailyELIQUIS DVT-PE TREAT 30D START 5 mg (74 tabs) tablets,dose pack tablet TAKE 2 TABLETS (10 MG) BY MOUTH 2 TIMES A DAY FOR 7 DAYS, THEN 1 TABLET 2 TIMES A DAY FOR 21 DAYS 08/31/2023 09/30/2023 DiscontinuedStart: 24-33-0437holl 2 tablets by mouth twice daily, then take 1 tablet by mouth twice dailyELIQUIS DVT-PE TREAT 30D START 5 mg (74 tabs) tablets,dose pack tablet TAKE 2 TABLETS (10 MG) BY MOUTH 2 TIMES A DAY FOR 7 DAYS, THEN 1 TABLET 2 TIMES A DAY FOR 21 DAYS 08/31/2023 ActiveStart: 08-29-2023 End: 25-51-6243jpda 2 tablets by mouth twice daily, then take 1 tablet by mouth twice dailyEliquis DVT/PE Starter Pack 5 MG tablet therapy pack TAKE 2 TABLETS (10 MG) BY MOUTH 2 TIMES A DAY FOR 7 DAYS, THEN 1 TABLET 2 TIMES A DAY FOR 21 DAYS 08/31/2023 03/17/2024 Discontinued (Med list cleanup)Start: 08-29-2023 End: 07-39-1998zdzx 1 tablet by mouth in the morning, then take 1 tablet by mouth at bedtimeapixaban (ELIQUIS) 5 mg tablet Indications: Acute pulmonary embolism without acute cor pulmonale, unspecified pulmonary embolism type (CMS- HCC) Take 1 tablet (5 mg total) by mouth in the morning and 1 tablet (5 mg total) before bedtime. 120 tablet 09/30/2023 01/04/2024 Discontinued (Therapy completed)aspirin 81 mg delayed release oral tablet (20 sources)Platelet Aggregation Inhibitor, Nonsteroidal Anti-inflammatory Drug Start: 07-26-2023 End: 96-97-1985kpbz 81 mg by mouth once daily81 mg, oral, Daily, First dose on 07/26/23 at 0900, Do not crush or chew.brexpiprazole 4 mg oral tablet (1 source)Atypical AntipsychoticStart: 01-07-2018 End: 73-26-8645hcey 1 tablet by mouth once daily in the morningBrexpiprazole (Rexulti) 4 mg tablet Discontinued 4 MG PO Every morning January 07, 2018 12:00amSept2017 11:12ambusPIRone hydrochloride 10 mg oral tablet (1 source)Start: 01-18-2018 End: 79-34-3196qfuh 20 mg by mouth three times dailyBuspirone Discontinued 20 MG PO Three times daily 180 January 18, 2018 12:00am June 08, 2018 11:26amcefTRIAXone 1000 mg injection (1 source)Cephalosporin AntibacterialStart: 07-25-2023 End: 92-80-8666txfJRVVRnbo (ROCEPHIN) IVPB 1000 mg/50 mL in iso-osmotic dextrose (20 mg/mL premix)clindamycin 150 mg oral capsule (12 sources)Lincosamide Antibacterial End: 18-78-4864hmsr 1 capsule by mouth three times dailyclindamycin (CLEOCIN) 150 mg capsule Take 1 capsule (150 mg total) by mouth 3 (three) times a day. 0 11/02/2023 Discontinued (Therapy completed)cyclobenzaprine hydrochloride 10 mg oral tablet (20 sources)Muscle RelaxantStart: 12-24-2023 End: 67-74-5479qowutjmihjnyzkn (FLEXERIL) 10 mg tablet 12/24/2023 07/07/2024 Discontinued (Therapy completed)Start: 09-10-2023 End: 27-54-9374khvb 1 tablet by mouth twice daily as needed for pain cyclobenzaprine (Fexmid) 7.5 MG tablet Indications: Radiculopathy, lumbosacral region TAKE 1 TABLETBY MOUTH TWICE A DAY NEEDED FOR LOWER BACK PAIN 60 tablet 1 09/10/2023 01/12/2024 Discontinued (Med list cleanup)Start: 39-47-6719yelb 1 tablet by mouth twice daily as needed for muscle spasmscyclobenzaprine (FLEXERIL) 5 mg tablet Indications: Unilateral groin pain, right Take 1 tablet (5 mg total) by mouth 2 (two) times a day as needed for muscle spasms. 20 tablet 08/10/2023 Activecyclobenzaprine (Flexeril) 10 MG tablet Take 5 mg by mouth as needed in the morning and 5 mg as needed at noon and 5 mg as needed in the evening for muscle spasms. Activetake 1 tablet by mouth twice daily as needed for muscle spasmscyclobenzaprine (FEXMID) 7.5 MG tablet Take 1 tablet (7.5 mg total) by mouth 2 (two) times a day asneeded for muscle spasms. Activediclofenac sodium 0.01 mg/mg topical gel (20 sources)Nonsteroidal Anti-inflammatory DrugStart: 11-04-2023 End: 05-31-0954jyyagkxzei sodium (VOLTAREN) 1 % gel Indications: Fibromyalgia syndrome APPLY 2 G TOPICALLY IN THE MORNING AT AT NOON IN THE EVENING AND BEFORE BEDTIME 100 g 2 11/04/2023 10/07/2024 Discontinued (Patient Stopped On Own) Start: 07-01-2023 End: 44-43-4874gsirdmiqqk sodium (VOLTAREN) 1 % gel Indications: Fibromyalgia syndrome Apply 2 g topically in the morning and 2 g at noon and 2 g in the evening and 2 g before bedtime. 100 g 2 07/01/2023 ActiveStart: 06-14-2023 End: 04-13-2242nclc 1 tablet by mouth twice daily as neededdiclofenac (VOLTAREN) 75 mg EC tablet TAKE 1 TABLET BY MOUTH TWICE A DAY NEEDED 0 06/14/2023 0309/2023 Discontinued (Side effects)take 1 tablet by mouth in the morning diclofenac (VOLTAREN) 75 mg EC tablet Take 1 tablet (75 mg total) by mouth in the morning. 0 Activetake 1 capsule by mouth every eight hoursDiclofenac 35 MG 1 capsule as needed Orally Three times a day ActivediphenhydrAMINE hydrochloride 50 mg oral capsule (9 sources)Histamine-1 Receptor Antagonist End: 61-14-2846zgon 1 capsule by mouth every six hours as neededdiphenhydrAMINE (BENADRYL) 50 mg capsule Take 1 capsule (50 mg total) by mouth every 6 (six) hours as needed for itching. 0 07/27/2023 Discontinued (Stop Taking at Discharge)Benadryl Activedoxycycline hyclate 100 mg oral capsule (20 sources)Tetracycline-class DrugStart: 09-24-2023 End: 28-77-0925quba 1 capsule by mouth in the morning, then take 1 capsule by mouth at bedtimedoxycycline (VIBRAMYCIN) 100 mg capsule Indications: Community acquired pneumonia, unspecified laterality Take 1 capsule (100 mg total) by mouth in the morning and 1 capsule (100 mg total) before bedtime. Do all this for 7 days. 14 capsule 09/24/2023 09/30/2023 Discontinued (Therapy completed) Start: 07-24-2023 End: 12-76-8545igacsipaxwb (VIBRAMYCIN) 100 mg capsule 08/01/2023 ActiveStart: 05-18-2023 End: 59-59-5195hyli 1 capsule by mouth in the morning, then take 1 capsule by mouth at bedtimedoxycycline (VIBRAMYCIN) 100 mg capsule Take 1 capsule (100 mg total) by mouth in the morning and 1capsule (100 mg total) before bedtime. Do all this for 10 days. 20 capsule 0 05/18/2023 05/28/2023 Active End: 61-37-0694ffiniqxklwt (Vibramycin) 100 MG capsule Take 100 mg by mouth in the morning and 100 mg before bedtime. Take with at least 8 ounces (large glass) of water, do not lie down for 30 minutes after. 01/12/2024 Discontinued (Med list cleanup)0.4 ml enoxaparin sodium 100 mg/ml prefilled syringe (1 source)Low Molecular Weight HeparinStart: 07-26-2023 End: 81-51-5160tmbdrr 40 mg by subcutaneous injection once daily40 mg, subcutaneous, Daily, First dose on 07/26/23 at 0600, Look-alike/sound-alike medication - verify indication for use.ferrous sulfate 325 mg oral tablet (12 sources)Start: 01-05-2023 End: 37-71-2454kiosqse sulfate 325 (65 FE) mg tablet 1 tablet (325 mg total) in the morning and 1 tablet (325 mg total) in the evening. Take with meals. 0 01/05/2023 07/01/2023 Discontinued (Side effects)ferrous sulfate 325 (65 Fe) MG tablet TAKE 1 TABLET BY MOUTH TWICE A DAY FOR 30 DAYS for 30 Activefurosemide 40 mg oral tablet (5 sources)Loop DiureticStart: 11-07-2024 End: 10-69-8862hjmz 1 tablet by mouth once dailyfurosemide (LASIX) 40 mg tablet Indications: Venous insufficiency of both lower extremities Take 1 tablet (40 mg total) by mouth daily. 30 tablet 2 11/07/2024 11/28/2024 DiscontinuedStart: 10-24-2024 End: 55-03-4533szxg 1 tablet by mouth once dailyfurosemide (LASIX) 40 mg tablet Indications: Venous insufficiency of both lower extremities Take 1 tablet (40 mg total) by mouth daily for 5 days. 5 tablet 10/24/2024 10/29/2024 ActiveStart: 07-25-2023 End: 21-04-7294dgielfsygk (LASIX) injection 40 mggabapentin 100 mg oral capsule (20 sources)Anti-epileptic AgentStart: 07-25-2023 End: 34-91-1876kmiu 200 mg by mouth three times hmtsa727 mg, oral, 3 times daily, First dose on 07/25/23 at 2200, Look-alike/sound-alike medication - verify indication for use.Start: 01-05-2023 End: 52-53-1499zudz 2 capsules by mouth three times dailygabapentin (Neurontin) 100 MG capsule Indications: Polyneuropathy, unspecified TAKE 2 CAPSULES BY MOUTH 3 TIMES A DAY FOR 30 DAYS 180 capsule 2 08/17/2023 01/12/2024 Discontinued (Med list cleanup)lidocaine 0.05 mg/mg medicated patch (4 sources)Antiarrhythmic, Amide Local AnestheticStart: 08-29-2023 End: 68-31-9340fgehg 1 dose transdermal route every twelve hours in the morning lidocaine (LIDODERM) 5 % Place 1 patch on the skin in the morning. Remove & Discard patch within 12 hours or as directed by MD. 5 patch 08/29/2023 09/24/2023 Discontinued (Therapy completed)lurasidone hydrochloride 40 mg oral tablet (3 sources)Atypical AntipsychoticStart: 01-18-2018 End: 82-07-5008maxo 1 tablet by mouth once dailyLurasidone (Latuda) 40 mg tablet Discontinued 60 MG PO Daily with supper June 08, 2018 11:26am June 08, 2018 12:03pmStart: 01-07-2018 End: 34-56-3557razi 1 tablet by mouth once dailyLurasidone (Latuda) 20 mg tablet Discontinued 20 MG PO Daily with supper January 07, 2018 12:00am January 18, 2018 11:12am1 ml methylPREDNISolone acetate 40 mg/ml injection (9 sources)CorticosteroidStart: 01-26-2024 End: 42-49-5789cbwsmoVAYGYVGeowkq acetate (DEPO-Medrol) injection 40 mgStart: 01-26-2024 End: 52-76-542378 mg, Intra-articular, Once PRN Procedure, Starting on Thu01/26/24 at 1350, For 1 doseStart: 12-29-2023 End: 80-25-6801phofrlLSAWTIMkkhob acetate (DEPO-Medrol) injection 40 mgStart: 12-29-2023 End: 79-02-381109 mg, Injection, Once PRN Procedure, Starting on Thu12/29/23 at 1458, For 1 doseStart: 07-25-2023 End: 06-04-674163 mg, intravenous, Every 12 hours scheduled, First dose on Thu07/25/23 at 2115, May alter blood glucose or insulin requirements. Look-alike/sound-alike medication - verify indication for use.ondansetron 4 mg oral tablet (8 sources)Serotonin-3 Receptor Antagonist End: 86-43-3305fpeg 1 tablet by mouth every eight hours as needed for nausea and vomitingondansetron (ZOFRAN) 4 mg tablet Take 1 tablet (4 mg total) by mouth every 8 (eight) hours as needed for nausea or vomiting. 0 07/27/2023 Discontinued (Stop Taking at Discharge)12 hr orphenadrine citrate 100 mg extended release oral tablet (3 sources)Muscle RelaxantStart: 10-20-2023 End: 71-58-5437eliv 1 tablet by mouth twice daily as needed for painorphenadrine (NORFLEX) 100 mg 12 hr tablet Take 1 tablet (100 mg total) by mouth 2 (two) times a day as needed for muscle spasms or pain. 10 tablet 10/20/2023 11/02/2023 Discontinued (Formulary change)oxyCODONE hydrochloride 5 mg oral tablet (8 sources)Opioid AgonistStart: 08-09-2023 End: 81-28-9511nmdk 1 tablet by mouth every eight hours as needed for pain oxyCODONE (ROXICODONE) 5 mg immediate release tablet Indications: Acute right hip pain Take 1 tablet (5 mg total) by mouth every 8 (eight) hours as needed for pain for up to 2 days. Max Daily Amount:15 mg 6 tablet 08/09/2023 08/11/2023 End: 36-87-7083pafSODTGV (Oxy-IR) 5 MG immediate release capsule Take 5 mg by mouth 01/12/2024 Discontinued (Med list cleanup)microencapsulated potassium chloride 20 meq extended release oral tablet (20 sources)Start: 07-26-2023 End: 73-80-726945 mEq, oral, Daily, First dose on 07/26/23 at 0900, Do not crush or chew.take 1 dose by mouth once daily at mealtimePotassium Chloride 20 MEQ 1 packet with food Orally Once a day Activeprazosin 1 mg oral capsule (1 source)alpha-Adrenergic BlockerStart: 01-18-2018 End: 65-57-6697peqv 2 mg by mouth twice dailyPrazosin Discontinued 2 MG PO Twice daily 120 January 18, 2018 12:00am June 08, 2018 11:26ampredniSONE 20 mg oral tablet (7 sources)Start: 09-24-2023 End: 99-29-0822ofnx 1 tablet by mouth in the morningpredniSONE (DELTASONE) 20 mg tablet Indications: Community acquired pneumonia, unspecified laterality Take 1 tablet (20 mg total) by mouth in the morning for 7 days. 7 tablet 09/24/2023 09/30/2023 Discontinued (Therapy completed)Start: 53-71-8145nxgl 2 tablets by mouth once daily at breakfastpredniSONE (DELTASONE) 20 mg tablet Take 2 tablets (40 mg total) by mouth daily with breakfast. 10 tablet 07/28/2023 ActiveStart: 07-28-2023 End: 49-38-0283xbsqchRKDR (DELTASONE) tablet 40 mgrisperiDONE 1 mg oral tablet (1 source)Atypical AntipsychoticStart: 06-08-2018 End: 58-06-7703pawk 1 mg by mouth once dailyRisperidone Discontinued 1 MG PO Daily June 08, 2018 1:00am June 22, 2018 9:33hn558 ml sodium chloride 9 mg/ml prefilled syringe (4 sources)Start: 07-25-2023 End: mL, intravenous, Every 12 hours scheduled, First dose on 07/25/23 at 2114Start: 07-25-2023 End: mL, intravenous, As needed, line care, before and after each intermittent use, Starting on 07/25/23 at art: 07-25-2023 End: 85-16-4030lqie 20 mL intravenously every hour as qxetuk97 mL/hr, intravenous, Continuous PRN, to maintain patency of lines, Starting on 07/25/23 at art: 07-25-2023 End: 79-00-6977osea 25 mL intravenously every hour as gjarqv57 mL, intravenous, at 100 mL/hr, Administer over 15 Minutes, As needed, line care, line care after IVPB administration, Starting on 07/25/23 at 974415 hr venlafaxine 75 mg extended release oral capsule (20 sources)Serotonin and Norepinephrine Reuptake InhibitorStart: 03-14-2023 End: 66-25-6150cacf 1 capsule by mouth once daily in the morningvenlafaxine XR (EFFEXOR XR) 75 mg 24 hr capsule TAKE 1 CAPSULE BY MOUTH EVERY DAY IN THE MORNING 03/14/2023 ActiveStart: 03-14-2023 End: 50-76-3641kgsotrpolbt XR (EFFEXOR XR) 75 mg 24 hr capsule 03/14/2023 10/07/2024 Discontinued (Discontinued byanother clinician)Start: 10-17-2021 End: 59-37-9774vdhs 1 capsule by mouth every twenty-four hours in the morning venlafaxine XR (EFFEXOR-XR) 150 mg 24 hr capsule Take 225 mg by mouth in the morning. 10/17/2021 10/07/2024 Discontinued (Discontinued by another clinician) take 1 capsule by mouth once dailyvenlafaxine XR (Effexor XR) 150 MG 24 hr capsule Take 150 mg by mouth Daily Do not crush or chew. ActiveEffexor Active Problems Active Problems Problem ClassificationProblemDateDocumented DateEpisodic/ChronicAbdominal hernia (8 sources)Gastroesophageal reflux disease with hiatal hernia; Translations: [Diaphragmatic hernia without obstruction or gangrene]Onset: 11-07-2024 09-01-3145KoyugiyrXqadljdlq pain (3 sources)Right inguinal pain; Translations: [Right lower quadrant pain]Onset: 257572-89-3683UshmznjgHxvdx and unspecified renal failure (5 sources)Acute injury of kidney; Translations: [Acute kidney failure, unspecified]Onset: 721962-13-6729TuzzpxwiKyfck myocardial infarction (20 sources)Myocardial infarction; Translations: [Non-ST elevation (NSTEMI) myocardial infarction]Onset: 661139-73-0507UbiyqipTimdxal disorders (20 sources)Posttraumatic stress disorder; Translations: [Post-traumatic stress disorder, unspecified]Onset: 08-28-2015 Resolved: 482434-84-6705VwxlsdlZkgqosvtp and vision defects (20 sources)Visual impairment; Translations: [Unspecified visual loss]Onset: 231034-48-1129RlnkteoVtugeua kidney disease (20 sources)Chronic kidney disease stage 3A ; Translations: [Stage 3a chronic kidney disease ([facility]-HCC)]Onset: 07-07-2024 Resolved: 588682-26-2863BccamccVrfynoj kidney disease (3 sources)Chronic kidney disease; Translations: [Chronic kidney disease, stage 3a]Onset: 39-32-4362Eiamork obstructive pulmonary disease and bronchiectasis (20 sources)Chronic obstructive lung disease; Translations: [Chronic obstructive pulmonary disease, unspecified]Onset: 721374-45-7847XtsipihMqpasfekia associated with dizziness or vertigo (1 source)DizzinessOnset: 92-78-9810JsmerudpWvxomgwhsz heart failure; nonhypertensive (20 sources)Chronic heart failure co-occurrent with normal ejection fraction; Translations: [Chronic diastolic (congestive) heart failure]Onset: 02-27-2022 Resolved: 925672-73-1638HnglltgGqqxragl atherosclerosis and other heart disease (20 sources)Coronary arteriosclerosis; Translations: [Atherosclerotic heart disease of [place] coronary artery without angina pectoris]Onset: 05-08-2013 Resolved: 303594-14-4538EhzodjpVzjvtxuo atherosclerosis and other heart disease (9 sources)Aortocoronary bypass graft present; Translations: [Presence of aortocoronary bypass graft]Onset: 04-29-2023 Resolved: 337441-57-2158QggilkzjAvphwisrxg and other anemia (9 sources)Microcytic anemia; Translations: [Iron deficiency anemia, unspecified]Onset: 576823-01-6350GqzivuulYwocxorujw and other anemia (2 sources)Iron deficiency anemia, unspecified; Translations: [Iron deficiency anemia, unspecified]Onset: 01-97-6308QuhgpjtkSqvbiltq mellitus with complications (2 sources)Type 2 diabetes mellitus; Translations: [Type 2 diabetes mellitus with diabetic chronic kidney disease]Onset: hronic Esophageal disorders (20 sources)Gastroesophageal reflux disease; Translations: [Gastro-esophageal reflux disease without esophagitis]Onset: 423707-12-8379YsivrvdRkpuiccdb hypertension (20 sources)Essential hypertension; Translations: [Essential (primary) hypertension]Onset: 391676-05-1639KxdzhbcVfrxiqwj; including migraine (13 sources)Migraine; Translations: [Migraine, unspecified, not intractable, without status migrainosus]Onset: 116218-65-9278LxxqzdhCikge valve disorders (19 sources)Tricuspid incompetence, non-rheumatic ; Translations: [Nonrheumatic tricuspid (valve) insufficiency]Onset: 401062-62-4619LzbyoayTcnpepo and fatigue (20 sources)Asthenia; Translations: [Weakness]Onset: 05-28-2023 Resolved: 603314-25-2983NdwxdcpaKxxn disorders (20 sources)Bipolar II disorder, most recent episode major depressive; Translations: [Bipolar II disorder]Onset: 385370-76-1315YpuzcheXytmap and vomiting (5 sources)Nausea and vomiting; Translations: [Nausea with vomiting, unspecified]Onset: 747448-84-6246NawryqxdAtmxgkahjhi deficiencies (13 sources)Vitamin D deficiency; Translations: [Vitamin D deficiency, unspecified]Onset: 900579-33-3374IlsxszwEznmxovreukwxg (20 sources)Primary osteoarthritis, left shoulder; Translations: [Arthropathy, unspecified, shoulder region]Onset: 152664-76-5375PjzlkjbHguvy aftercare (1 source)Encounter for therapeutic drug level monitoring; Translations: [Encounter for therapeutic drug level monitoring]Onset: 52-19-5131GiiotpvnUispz aftercare (1 source)Other half-way (current) drug therapy; Translations: [Other long chain beamer (current) drug therapy]Onset: 44-87-6100YzvtolytKpqnp circulatory disease (1 source)Orthostatic hypotension; Translations: [Orthostatic hypotension] 82-07-0392VdoywxflCugqs connective tissue disease (1 source)Trochanteric bursitis, left hipEpisodicOther connective tissue disease (6 sources)Myofascial pain syndrome; Translations: [Myalgia, unspecified site] 50-21-5210TwsaoxbuNzdqz connective tissue disease (3 sources)Fibromyalgia; Translations: [Fibromyalgia]96-45-3996SvxkupcaRuebp connective tissue disease (2 sources)Tendonitis of right patellar tendon; Translations: [Patellar tendinitis, right knee]76-33-1991SljmdxoeSosvw connective tissue disease (2 sources)Patellar tendinitis, right knee; Translations: [Patellar tendinitis, right knee]Onset: 55-33-8870EgsyrgfrJtths diseases of veins and lymphatics (4 sources)Venous insufficiency of leg; Translations: [Venous insufficiency (chronic) (peripheral)]02-63-5817GvequhcyFfopj diseases of veins and lymphatics (1 source)Venous insufficiency (chronic) (peripheral); Translations: [Venous insufficiency (chronic) (peripheral)]Onset: 22-68-4017BazaqwosQsnko liver diseases (20 sources)Disease of liver; Translations: [Liver disease, unspecified]Onset: 720132-77-9237YpjdabuSddpt lower respiratory disease (1 source)Acute respiratory distressOnset: 00-39-7305VwbgenxhWisuo lower respiratory disease (20 sources)Dyspnea; Translations: [Shortness of breath]Onset: 11-05-2021 Resolved: 585320-04-9654BsjxawciTexcj lower respiratory disease (1 source)Shortness of breath; Translations: [Shortness of breath]Onset: 73-04-2177VspsoxkgMfhxv lower respiratory disease (1 source)Dyspnea, unspecified; Translations: [Dyspnea, unspecified]Onset: 87-05-9256RcpianraAlcnx nervous system disorders (2 sources)Polyneuropathy, unspecified; Translations: [Polyneuropathy, unspecified]Onset: 85-60-3466RlvbldhGmkay non-traumatic joint disorders (2 sources)Pain in left shoulder; Translations: [Pain in joint, shoulder region] 65-59-0530TmbuttpgSfepf nutritional; endocrine; and metabolic disorders (13 sources)Obesity caused by energy imbalance; Translations: [Morbid (severe) obesity due to excess calories]Onset: 406947-99-3945HoutvyqCmfho nutritional; endocrine; and metabolic disorders (20 sources)Body mass index 30+ - obesity; Translations: [Obesity, unspecified] Onset: 01-30-2020 Resolved: 102616-74-5472IwqtfpjYqwra nutritional; endocrine; and metabolic disorders (1 source)Body mass index (BMI) 40.0-44.9, adult; Translations: [Body mass index (BMI) 40.0-44.9, adult]Onset: 87-81-5921JnoynvjYfaevigzyfq disorders (13 sources)Borderline personality disorder; Translations: [Borderline personality disorder]Onset: 866834-89-6299DjafscmWhkwrfdzj (except that caused by tuberculosis or sexually transmitted disease) (20 sources)Pneumonia; Translations: [Pneumonia, unspecified organism]Onset: 04-15-2023 Resolved: 154160-48-9350PozubtilFoxhdmgfa heart disease (19 sources)Pulmonary hypertension; Translations: [Pulmonary hypertension, unspecified]Onset: 571612-68-6923MyjbwpuJnclpobf codes; unclassified (20 sources)Obstructive sleep apnea syndrome; Translations: [Obstructive sleep apnea (adult) (pediatric)]Onset: 795107-85-5561LaotwlmMdhtspst codes; unclassified (1 source)Sleep related hypoxemia; Translations: [Sleep related hypoventilation in conditions classified elsewhere]54-89-4282SvqwvdzGiccgpmp codes; unclassified (1 source)Obstructive sleep apnea (adult) (pediatric); Translations: [Obstructive sleep apnea (adult) (pediatric)]Onset: 50-80-1921YckhlicTwsizeay codes; unclassified (1 source)EdemaOnset: 22-43-5133OceinydjSieyctnciyt failure; insufficiency; arrest (adult) (20 sources)Chronic respiratory failure; Translations: [Chronic respiratory failure with hypoxia]Onset: 612297-92-1548UqhhmilSmygdkoplwh failure; insufficiency; arrest (adult) (20 sources)Acute respiratory failure, unspecified whether with hypoxia or hypercapnia; Translations: [Acute hypoxemic and hypercapnic respiratory failure] Onset: 04-14-2023 Resolved: 380314-75-3422GcupbduuLurisoqgvvt; intervertebral disc disorders; other back problems (20 sources)Bilateral inflammation of sacroiliac joint; Translations: [Sacroiliitis, not elsewhere classified]Onset: 07-07-2024 Resolved: 39-08-9146NdebratOdivznbcc-related disorders (20 sources)Cannabis abuse; Translations: [Cannabis abuse, uncomplicated]Onset: 10-16-2020 Resolved: 002094-73-0804ZhsxrdsWwsqnrysppx injury; contusion (1 source)Contusion of lower leg; Translations: [Contusion of unspecified lower leg, initial encounter]76-28-6658AuavcajmAorivbtyocbd (1 source)Low back pain, unspecified; Translations: [Low back pain, unspecified] Onset: 96-50-9965Lsgcnijexyin (1 source)Chronic heart failure co-occurrent with normal ejection fraction 64-38-2760Jfwrcbgpboxb (2 sources)Autogenerated ProblemOnset: 917013-55-4060Zegfbflkngaw (1 source)Controlled SubstanceOnset: 05-29-5734Cykusxoruury (1 source)ErrorOnset: 88-31-6910Fpgddbtbsjsa (1 source)illOnset: 12-03-2024 Past or Other Problems Problem ClassificationProblemDateDocumented DateEpisodic/ChronicCardiac dysrhythmias (6 sources)Ventricular tachycardia; Translations: [Ventricular tachycardia] Onset: 09-20-2024 Resolved: 812236-37-6287GelfoqjBibfcvvqsuytt of surgical procedures or medical care (6 sources)Non-healing surgical wound; Translations: [Other complications of procedures, not elsewhere classified, initial encounter]Onset: 01-14-2023 78-96-5998SdcbxeguDmckwjabyp and other anemia (15 sources)Iron deficiency anemia; Translations: [Iron deficiency anemia, unspecified]Onset: 682980-83-5467TompzralKfvhlqms, dementia, and amnestic and other cognitive disorders (20 sources)Dementia; Translations: [Unspecified dementia, mild, without behavioral disturbance, psychotic disturbance, mood disturbance, and anxiety] Onset: 10-21-2022 Resolved: 656660-06-8715GxjktjhMaylxrlw mellitus without complication (20 sources)Hyperglycemia; Translations: [Hyperglycemia, unspecified]Onset: 185888-94-0740AacmccfzSgxtebzqw of lipid metabolism (7 sources)Hyperlipidemia; Translations: [Hyperlipidemia, unspecified]Onset: 04-29-2023 Resolved: 308791-05-5430ZbavbpzExxln and electrolyte disorders (20 sources)Hypokalemia; Translations: [Hypokalemia]Onset: 08-14-2020 Resolved: 094584-99-8592WopoicfzLaqzlmyx; including migraine (17 sources)Chronic headache disorder; Translations: [Chronic headache]Onset: 229773-94-4807XnbcqupjUicg disorders (20 sources)Mood disordersOnset: 01-04-2024 Resolved: 015734-80-3691Fardgmgagdj deficiencies (5 sources)Cobalamin deficiency; Translations: [Deficiency of other specified B group vitamins]Onset: 689016-97-6649ReppdpduKgjrg circulatory disease (7 sources)Low blood pressure; Translations: [Other hypotension]Onset: 08-14-2020 Resolved: 498841-08-5160DfrqjbfwXgvxn connective tissue disease (13 sources)Muscle weakness; Translations: [Muscle weakness (generalized)]Onset: 425790-80-6041TzhrktnsQiuag diseases of kidney and ureters (6 sources)Acute renal insufficiency; Translations: [Disorder of kidney and ureter, unspecified]Onset: 277944-09-4762XawjwnvaOxcjy fractures (20 sources)Fracture of sixth thoracic vertebra; Translations: [Wedge compression fracture of T5-T6 vertebra, subsequent encounter for fracture with routine healing]Onset: 904145-83-9400JwudjmqqMrcze fractures (2 sources)Compression fracture of thoracic spine; Translations: [Wedge compression fracture of T7-T8 vertebra, subsequent encounter for fracture with routine healing]77-71-7742ZpqvlvwtLudzp inflammatory condition of skin (8 sources)Psoriasis; Translations: [Psoriasis, unspecified]Onset: 05-02-2023 Resolved: 437390-16-5938UbkdshkHxyff injuries and conditions due to external causes (6 sources)Injury of breast; Translations: [Unspecified injury of thorax, initial encounter]Onset: 049795-46-5204EelkcnmeFlhdt lower respiratory disease (8 sources)Solitary nodule of lung; Translations: [Solitary pulmonary nodule] Onset: 04-29-2023 Resolved: 660455-69-2550CkzskzcuSatat lower respiratory disease (1 source)Hypoxia; Translations: [Hypoxemia]40-50-9146JdviyeuuVzsbj nervous system disorders (8 sources)Difficulty walking; Translations: [Difficulty in walking, not elsewhere classified]Onset: 04-28-2023 Resolved: 708623-43-1751GvupyoxWekdt nervous system disorders (15 sources)Polyneuropathy; Translations: [Polyneuropathy, unspecified]Onset: 04-29-2023 Resolved: 678846-13-8700BmuohzrMxvum nervous system disorders (1 source)Ataxia, unspecified; Translations: [Ataxia, unspecified]Onset: 83-97-7842TzlpqiqePtkay nutritional; endocrine; and metabolic disorders (20 sources)Body mass index 40+ - severely obese; Translations: [Body mass index (BMI) 40.0-44.9, adult]Onset: 06-01-2023 Resolved: 693932-98-3424YgmaveoZbdes nutritional; endocrine; and metabolic disorders (20 sources)H/O: raised blood lipids; Translations: [Personal history of other endocrine, nutritional and metabolic disease]Onset: 020851-38-8740Ilsmpqdg Pathological fracture (2 sources)Pathological fracture of vertebra due to osteoporosis; Translations: [Other osteoporosis with current pathological fracture, vertebra(e), subsequent encounter for fracture with routine healing]27-84-1595YniviulaSexniergd heart disease (20 sources)Acute pulmonary embolism; Translations: [Other pulmonary embolism without acute cor pulmonale]Onset: 08-28-2023 Resolved: 600345-46-0187AqjjnifaJnvxbggp codes; unclassified (8 sources)Dependence on enabling machine or device; Translations: [Dependence on other enabling machines and devices]Onset: 04-29-2023 Resolved: 180151-73-0152MlewkfhNjqvnjyl codes; unclassified (20 sources)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; Translations: [Dependence on other enabling machines and devices]Onset: 10-21-2022 Resolved: 534618-54-6644LkwqtopWcwbmbal codes; unclassified (1 source)Viral syndrome; Translations: [Other general symptoms and signs] 28-92-4975NkldordfQjszthwrk and history of mental health and substance abuse codes (20 sources)Ex-smoker; Translations: [Personal history of nicotine dependence] Onset: 09-26-2022 Resolved: 605725-12-9022XaddhjwiYybau and face fractures (20 sources)Fracture of tooth ; Translations: [Fracture of tooth (traumatic), initial encounter for closed fracture]Onset: 214553-69-4068Vduuwols Spondylosis; intervertebral disc disorders; other back problems (20 sources)Spinal stenosis, lumbar region without neurogenic claudication; Translations: [Low back pain]Onset: 38-34-2445ZccanvhbLcgqfgeyyszo (1 source)Bilateral low back pain, unspecified chronicity, unspecified whether sciatica present M54.50Viral infection (20 sources)Disease caused by 2019-nCoV; Translations: [COVID-19]Onset: 04-15-2023 Resolved: 601911-89-7502Hbkzinjj Results Test NameValueInterpretationReference RangeFacilityBASIC METABOLIC PANELon 06-00-6390Mzaui gap [Moles/Vol]9 mmol/LNormal5-15[facility] Comment on above:Performed By: #### CMP #### [facility] ([address] [address] VIRCalcium [Mass/Vol]9.6 mg/dLNormal8.5-10.5PSelect Medical TriHealth Rehabilitation HospitalComment on above:Performed By: #### CMP #### [facility] ([address] [address] VIRChloride [Moles/Vol]96 mmol/JEzi71-305FpxBypqrgChristus Spohn Hospital Corpus Christi – SouthComment on above:Performed By: #### CMP #### [facility] ([address] [address] VIRCO2 [Moles/Vol]35 mmol/YFpop41-11FofThiyaoSelect Medical TriHealth Rehabilitation Hospital Comment on above:Performed By: #### CMP #### [facility] ([address] [place] [address] VIRCreatinine [Mass/Vol]1.17 mg/dLHigh0.40-1.00ProChristus Spohn Hospital Corpus Christi – SouthComment on above:Result Comment: METHOD TRACEABLE TO IDMS STANDARDPerformed By: #### CMP #### [facility] ([address] [place] [address] VIRGFR/1.73 sq M.predicted among non-blacks MDRD (S/P/Bld) [Vol rate/Area]53 mL/min/{1.73_m2}Low>=60ProChristus Spohn Hospital Corpus Christi – SouthComment on above:Result Comment: Reported eGFR is based on the CKD-EPI 2020 equation that does not use a race coefficient.Performed By: #### CMP #### [address] [place] [address] VIRGlucose [Mass/Vol]101 mg/lOMutj76-62AzaZazhafChristus Spohn Hospital Corpus Christi – SouthComment on above:Performed By: #### CMP #### [facility] ([address] [place] [address] VIRPotassium [Moles/Vol]3.3 mmol/LLow3.5-5.0ProChristus Spohn Hospital Corpus Christi – SouthComment on above:Performed By: #### CMP #### [address] [place] [address] VIRSodium [Moles/Vol]140 mmol/JXvwqvm514-715OjeKsrvxg [facility] HospitalComment on above:Performed By: #### CMP #### [facility] ([address] [place] [address] VIRUrea nitrogen [Mass/Vol]16 mg/dLNormal5-27ProChristus Spohn Hospital Corpus Christi – SouthComment on above:Performed By: #### CMP #### [address] [place] [address] VIRBASIC METABOLIC PANELon 76-21-5901Ojkmo gap [Moles/Vol]12 mmol/LNormal5-15ProChristus Sp[facility] Hospital [facility] Christi – SouthComment on above:Performed By: #### LACTS #### [facility] ([address] [place] [address] VIRCalcium [Mass/Vol]9.2 mg/dLNormal8.5-10.5PSelect Medical TriHealth Rehabilitation HospitalComment on above:Performed By: #### LACTS #### [facility] ([address] [place] [address] VIRChloride [Moles/Vol]97 mmol/TEbv85-541WxhPjsthtChristus Spohn Hospital Corpus Christi – SouthComment on above:Performed By: #### LACTS #### [facility] ([address] [place] [address] VIRCO2 [Moles/Vol]29 mmol/DFgfvhh94-79RagDghzgwSelect Medical TriHealth Rehabilitation HospitalComment on above:Performed By: #### LACTS #### [facility] ([address] [place] [address] VIRCreatinine [Mass/Vol]1.16 mg/dLHigh0.40-1.00ProChristus Spohn Hospital Corpus Christi – SouthComment on above:Result Comment: METHOD TRACEABLE TO IDMS STANDARDPerformed By: #### LACTS #### [facility] ([address] [place] [address] VIRGFR/1.73 sq M.predicted among non-blacks MDRD (S/P/Bld) [Vol rate/Area]53 mL/min/{1.73_m2}Low>=60ProChristus Spohn Hospital Corp[facility] Christi – SouthComment on above:Result Comment: eGFR not reported due to non-numeric value for Creatinine. Reported eGFR is based on the CKD-EPI 2020 equation that does not use a race coefficient.Performed By: #### LACTS #### [facility] ([address] [place] [address] VIRGlucose [Mass/Vol]127 mg/cWLjdv53-28ZjrJhrqqgChristus Spohn Hospital Corpus Christi – SouthComment on above:Performed By: #### LACTS #### [facility] ([facility]) [address] [place] [address] [place] [address] VIRPotassium [Moles/Vol]3.4 mmol/LLow3.5-5.0ProChristus Spohn Hospital Corpus Christi – SouthComment on above:Performed By: #### LACTS #### [facility] ([facility]) [address] [place] [address] [place] [address] VIRSodium [Moles/Vol]138 mmol/ZZwtjao997-681ZoqYjipcl [facility] HospitalComment on above:Performed By: #### LACTS #### [facility] ([facility]) [address] [place] [address] [place] [address] VIRUrea nitrogen [Mass/Vol]13 mg/dLNormal5-27ProChristus Spohn Hospital [facility] Christi – SouthComment on above:Performed By: #### LACTS #### [facility] ([facility]) [address] [place] [address] [place] [address] VIRCBC WITH AUTO DIFFERENTIALon 45-04-7445ILXCUYYVK ABSOLUTE COUNT (10*3/UL) BY AUTOMATED COUNT0.2 10*3/uLNormal0.0-0.2ProMedDoctor's Hospital [facility] Medical CenterComformerly [facility] on above:Result Comment: This is an appended report. These results have been appended to a previously preliminary verified report.Performed By: #### LACTS #### [facility] ([facility]) [address] [place] [address] [place] [address] VIRBASOPHILS RELATIVE PERCENT BY AUTOMATED COUNT1.9 %Normal [facility] YoungstownComformerly [facility] on above:Result Comment: This is an appended report. These results have been appended to a previously preliminary verified report.Performed By: #### LACTS #### [facility] ([facility]) [address] [place] [address] [place] [address] VIRCELLAVISION ANISOCYTOSIS IN BLOOD BY LIGHT MICROSCOPY2+ NormalCleveland Clinic [facility] on above:Result Comment: This is an appended report. These results have been appended to a previously preliminary verified report.Performed By: #### LACTS #### [facility] ([address] [address] VIRCELLAVISION DIFFERENTIAL TYPEAUTOMATED DIFFERENTIALNormal [facility] on above:Result Comment: This is an appended report. These results have been appended to a previously preliminary verified report.Performed By: #### LACTS #### [facility] ([address] [address] VIRCELLAVISION ELLIPTOCYTES IN BLOOD BY LIGHT MICROSCOPY1+ [facility] on above:Result Comment: This is an appended report. These results have been appended to a previously preliminary verified report.Performed By: #### LACTS #### [facility] ([address] [address] VIREosinophils (Bld) [#/Vol]0.2 10*3/uLNormal0.0-0.4[facility] on above:Result Comment: This is an appended report. These results have been appended to a previously preliminary verified report. Performed By: #### LACTS #### [facility] ([address] [address] VIREOSINOPHILS RELATIVE PERCENT BY AUTOMATED COUNT1.7 %Normal [facility] on above:Result Comment: This is an appended report. These results have been appended to a previously preliminary verified report.Performed By: #### LACTS #### [facility] ([address] [address] VIRErythrocyte distribution width (RBC) [Ratio]22.2 %High 11.5-15ProChildren[facility] Medical Center [facility] on above:Performed By: #### LACTS #### [facility] ([address] [place] [address] VIRHematocrit (Bld) [Volume fraction]34.6 %Iio27-46YyrHvojqrChristus Spohn Hospital Corpus Christi – SouthComment on above:Performed By: #### LACTS #### [facility] ([address] [place] [address] VIRHemoglobin (Bld) [Mass/Vol]10.6 g/dLLow11.7-15.5PSelect Medical TriHealth Rehabilitation HospitalComment on above:Performed By: #### LACTS #### [facility] ([address] [place] [address] VIRLYMPHOCYTES ABSOLUTE COUNT (10*3/UL) BY AUTOMATED COUNT2.2 10*3/uLNormal1.0-3.5PSelect Medical TriHealth Rehabilitation HospitalComment on above:Result Comment: This is an appended report. These results have been appended to a previously preliminary verified report.Performed By: #### LACTS #### [facility] ([address] [address] VIRLYMPHOCYTES RELATIVE PERCENT BY AUTOMATED COUNT23.0 %Normal [facility] on above:Result Comment: This is an appended report. These results have been appended to a previously preliminary verified report.Performed By: #### LACTS #### [facility] ([address] [place] [address] VIRMCH (RBC) [Entitic mass]20.0 rbZxg36-03NxrUlqbvaChristus Spohn Hospital Corpus Christi – SouthComment on above:Performed By: #### LACTS #### [facility] ([address] [address] VIRMCHC (RBC) [Mass/Vol]30.6 g/jGNav30-70PuwDcytvuChristus Spohn Hospital Corpus Christi – SouthComment on above:Performed By: #### LACTS #### [facility] ([place]) [address] [place] [address] VIRMCV (RBC) [Entitic vol]65 fQRnc45-363AmrPitgvxChildren's Medical Center [place] on above:Performed By: #### LACTS #### [facility] ([facility]) [address] [place] [address] VIRMONOCYTES ABSOLUTE COUNT (10*3/UL) BY AUTOMATED COUNT0.4 10*3/uLNormal0.0-0.9[facility] on above:Result Comment: This is an appended report. These results have been appended to a previously preliminary verified report.Performed By: #### LACTS #### [facility] ([address] [address] VIRMONOCYTES RELATIVE PERCENT BY AUTOMATED COUNT4.1 %Normal [facility] on above:Result Comment: This is an appended report. These results have been appended to a previously preliminary verified report.Performed By: #### LACTS #### [facility] ([address] [address] VIRNEUTROPHILS ABSOLUTE COUNT BY AUTOMATED COUNT6.6 10*3/uL Normal1.5-6.6[facility] on above:Result Comment: This is an appended report. These results have been appended to a previously preliminary verified report.Performed By: #### LACTS #### [facility] ([address] [address] VIRNEUTROPHILS RELATIVE PERCENT BY AUTOMATED COUNT69.3 %Normal [facility] on above:Result Comment: This is an appended report. These results have been appended to a previously preliminary verified report.Performed By: #### LACTS #### [facility] ([address] [address] VIRPlatelet mean volume (Bld) [Entitic vol]8.4 fLNormal7-12 [facility] on above:Performed By: #### LACTS #### [facility] ([facility]) [address] [place] [address] [place] [address] VIRPlatelets (Bld) [#/Vol]360 10*3/yUUsbqsl053-182RltDnqrxr [facility] HospitalComment on above:Performed By: #### LACTS #### [facility] ([facility]) [address] [place] [address] [place] [address] VIRRBC COUNT5.30 X10E12/LHigh3.8-5.2PSelect Medical TriHealth Rehabilitation Hospital Comment on above:Performed By: #### LACTS #### [facility] ([facility]) [address] [place] [address] [place] [address] VIRWBC (Bld) [#/Vol]9.6 10*3/uLNormal4-11ProChristus Spohn Hospital Corpus Christi – SouthComment on above:Performed By: #### LACTS #### [facility] ([facility]) [address] [place] [address] [place] [address] VIRCT ABDOMEN AND PELVIS W CONTon 75-13-7357ZS ABDOMEN AND PELVIS W CONTCT ABDOMEN AND PELVIS W CONT EXAM: ABDOMEN AND PELVIS CT WITH CONTRAST CLINICAL INFORMATION: ruq/prl pain. TECHNIQUE: CT abdomen and pelvis was performed utilizing 5 mm axial reconstructions following the uneventful administration of nonionic intravenous contrast. Coronal and sagittal reformatted images as well as delayed excretory phase images were obtained and reviewed. Automated exposure control was u tilized. COMPARISON: CT dated 04/28/2023 FINDINGS: The limited [...] is recommended. There is no evidence for complicationsof possible early/mild acute appendicitis. 2. Hiatal hernia. All CT scans at this facility use dose modulation, iterative reconstruction, and/or weight based dosing when appropriate to reduce radiation dose to as low as reasonably achievable. Finalized by Cesario Cooley MD on 02/09/2025 3:45 PMNormalSelect Medical Specialty Hospital [facility] [place] LIPASEon 90-85-2933Dvoaaa [Catalytic activity/Vol]41 U/HVhkx56-29IjbTrmicmChristus Spohn Hospital Corpus Christi – SouthComment on above:Performed By: #### LACTS #### [address] [address] VIRLIVER PANELon 12-87-1435Dqgyehg [Mass/Vol]4.2 g/dLNormal 3.2-5.3PSelect Medical TriHealth Rehabilitation HospitalComment on above:Performed By: #### LACTS #### [address] [address] VIRALP [Catalytic activity/Vol]89 U/FOyzpmu31-350JxaUvmzvbChristus Spohn Hospital Corpus Christi – SouthComment on above:Performed By: #### LACTS #### [address] [address] VIRALT [Catalytic activity/Vol]17 U/LNormal<=31PSelect Medical TriHealth Rehabilitation HospitalComment on above:Performed By: #### LACTS #### [address] [place] [address] VIRAST [Catalytic activity/Vol]20 U/LNormal<=41ProChristus Spohn Hospital Corpus Christi – SouthComment on above:Performed By: #### LACTS #### [address] [place] [address] VIRBilirubin [Mass/Vol]0.7 mg/dLNormal0.3-1.2PSelect Medical TriHealth Rehabilitation HospitalComment on above:Performed By: #### LACTS #### [facility] ([address] [address] VIRBilirubin.indirect [Mass/Vol]0.1 mg/dLNormal<=0.4ProChristus Spohn Hospital Corpus Christi – SouthComment on above:Performed By: #### LACTS #### [facility] ([address] [address] VIRProtein [Mass/Vol]7.9 g/dLNormal6.0-8.0ProChristus Spohn Hospital Corpus Christi – SouthComment on above:Performed By: #### LACTS #### [facility] ([address] [address] VIRBASIC METABOLIC PANELon 16-54-0297Ybgjz gap [Moles/Vol]9 mmol/LNormal5-15ProChristus Spohn Hospital Corpus Christi – SouthComment on above:Performed By: #### LACTS #### [facility] ([address] [place] [address] VIRCalcium [Mass/Vol]9.1 mg/dLNormal8.5-10.5PSelect Medical TriHealth Rehabilitation HospitalComment on above:Performed By: #### LACTS #### [facility] ([address] [address] VIRChloride [Moles/Vol]102 mmol/OJgijsk51-397QmnYvjajzChristus Spohn Hospital Corpus Christi – SouthComment on above:Performed By: #### LACTS #### [facility] ([address] [address] VIRCO2 [Moles/Vol]31 mmol/NHezdmt08-58AixMhzwmnSelect Medical TriHealth Rehabilitation HospitalComment on above:Performed By: #### LACTS #### [address] [place] [address] VIRCreatinine [Mass/Vol]1.27 mg/dLHigh0.40-1.00ProChristus Spohn Hospital Corpus Christi – SouthComment on above:Result Comment: METHOD TRACEABLE TO IDMS STANDARDPerformed By: #### LACTS #### [facility] ([address] [place] [address] VIRGFR/1.73 sq M.predicted among non-blacks MDRD (S/P/Bld) [Vol rate/Area]48 mL/min/{1.73_m2}Low>=60ProChristus Spohn Hospital Corpus Christi – SouthComment on above:Result Comment: Reported eGFR is based on the CKD-EPI 2020 equation that does not use a race coefficient.Performed By: #### LACTS #### [facility] ([address] [place] [address] VIRGlucose [Mass/Vol]91 mg/rZObztkp36-60NnrKmiuvxChristus Spohn Hospital Corpus Christi – SouthComment on above:Performed By: #### LACTS #### [facility] ([address] [place] [address] VIRPotassium [Moles/Vol]4.2 mmol/LNormal3.5-5.0ProChristus Spohn Hospital Corpus Christi – SouthComment on above:Performed By: #### LACTS #### [address] [place] [address] VIRSodium [Moles/Vol]142 mmol/UCzsdeq059-324KzxTkqoxc [facility]remont HospitalComment on above:Performed By: #### LACTS #### [address] [place] [address] VIRUrea nitrogen [Mass/Vol]16 mg/dLNormal5-27ProChristus Spohn Hospital Corpus Christi – SouthComment on above:Performed By: #### LACTS #### [facility] ([address] [place] [address] VIRBasic Metabolic Panelon 09-29-4134Uurmj gap [Moles/Vol]9 mmol/L5 - 15 mmol/LProMedica Health SystemCalcium [Mass/Vol]9.1 mg/dL8.5 - 10.5 mg/dLProSalem City Hospital SystemChloride [Moles/Vol]102 mmol/L98 - 109 mmol/L ProMCommunity [facility] SystemCO2 [Moles/Vol]31 mmol/L22 - 32 mmol/LPrMarietta Osteopathic Clinic SystemCreatinine [Mass/Vol]1.27 mg/dLHigh0.40 - 1.00 mg/dLSelect Medical Specialty Hospital - CincinnatiComment on above:METHOD TRACEABLE TO IDMS STANDARDEGFR Non-Race Dependent 48Low- PINCleveland Clinic Akron General SystemComment on above:Reported eGFR is based on the CKD-EPI 2020 equation that does not use a race coefficient. Glucose [Mass/Vol]91 mg/dL65 - 99 mg/dLSelect Medical Specialty Hospital - CincinnatiInterpretation and review of laboratory resultsAbnormalProSalem City Hospital SystemPotassium [Moles/Vol]4.2 mmol/L3.5 - 5.0 mmol/LProMedica Health SystemSodium [Moles/Vol] 142 mmol/L134 - 146 mmol/LPrPresbyterian/St. Luke's [facility] Health SystemUrea nitrogen [Mass/Vol]16 mg/dL5 - 27 mg/dLProMagruder HospitalProSalem City Hospital SystemBASIC METABOLIC PANELon 90-03-0888Fdfkl gap [Moles/Vol]8 mmol/LNormal5-15[facility]ulatory PPGComment on above:Performed By: #### BMP #### [facility] ([facility]) [address] [place] [address] VIRCalcium [Mass/Vol]9.0 mg/dLNormal8.5-10.5POur [facility] Ambulatory PPGComment on above:Performed By: #### BMP #### [facility] ([facility]) [address] [place] [address] VIRChloride [Moles/Vol]101 mmol/UQnzlht02-490QebLakzjo Hospital Ambulatory PPGComment on above:Performed By: #### BMP #### [facility] ([facility]) [address] [place] [address] VIRCO2 [Moles/Vol]33 mmol/VFitg49-69EsiQqrhcc Hospital Ambulatory PPGComment on above:Performed By: #### BMP #### [facility] ([facility]) [address] [place] [address] VIRCreatinine [Mass/Vol]1.32 mg/dLHigh0.40-1.00[facility] Ambulatory PPGComment on above:Result Comment: METHOD TRACEABLE TO IDIL STANDARDPerformed By: #### BMP #### [facility] ([facility]) [address] [place] [address] VIRGFR/1.73 sq M.predicted among non-blacks MDRD (S/P/Bld) [Vol rate/Area]46 mL/min/{1.73_m2}Low>=60[facility] Ambulatory PPGComment on above:Result Comment: Reported eGFR is based on the CKD-EPI 2020 equation that does not use a race coefficient.Performed By: #### BMP #### [facility] ([facility]) [address] [place] [address] VIRGlucose [Mass/Vol]106 mg/qTDtuf71-16YvjBzvczg Hospital Ambulatory PPGComment on above:Performed By: #### BMP #### [facility] ([facility]) [address] [place] [address] VIRPotassium [Moles/Vol]4.5 mmol/LNormal3.5-5.0[facility] Ambulatory PPGComment on above:Performed By: #### BMP #### [facility] ([facility]) [address] [place] [address] VIRSodium [Moles/Vol]142 mmol/DDaslmt712-935VboGqxpqw Hospital Ambulatory PPGComment on above:Performed By: #### BMP #### [facility] ([facility]) [address] [place] [address] VIRUrea nitrogen [Mass/Vol]21 mg/dLNormal5-27[facility] Ambulatory PPGComment on above:Performed By: #### BMP #### [facility] ([facility]) [address] [place] [address] VIRBasic Metabolic Panelon 64-74-0276Vgipa gap [Moles/Vol]8 mmol/L5 - 15 mmol/LProMedica Health SystemCalcium [Mass/Vol]9 mg/dL8.5 - 10.5 mg/dLAkron Children's Hospital SystemChloride [Moles/Vol]101 mmol/L98 - 109 mmol/L [facility] SystemCO2 [Moles/Vol]33 mmol/LHigh22 - 32 mmol/LProMedThe Christ Hospital SystemCreatinine [Mass/Vol]1.32 mg/dLHigh0.40 - 1.00 mg/dLSelect Medical Specialty Hospital - CincinnatiComment on above:METHOD TRACEABLE TO IDMS STANDARDEGFR Non-Race Vyqlmixnk25Wei- PINFPWayne HealthCare Main CampusComment on above:Reported eGFR is based on the CKD-EPI 2020 equation that does not use a race coefficient. Glucose [Mass/Vol]106 mg/sREihh30 - 99 mg/dLSelect Medical Specialty Hospital - Cincinnati Interpretation and review of laboratory resultsAbnormDepartment of Veterans Affairs Medical [facility] System Potassium [Moles/Vol]4.5 mmol/L3.5 - 5.0 mmol/LProMedica Health SystemSodium [Moles/Vol]142 mmol/L134 - 146 mmol/[facility] Parham HealthoMedica Health SystemUrea nitrogen [Mass/Vol]21 mg/dL5 - 27 mg/dLUniversity of [facility] BASIC METABOLIC PANELon 04-10-2834Uaqfw gap [Moles/Vol]10 mmol/LNormal5-15 [facility] Hospital - YoungstownComment on above:Performed By: #### LACTS #### [facility] ([address] [address] VIRCalcium [Mass/Vol]9.6 mg/dLNormal8.5-10.5PSelect Medical TriHealth Rehabilitation HospitalComment on above:Performed By: #### LACTS #### [facility] ([address] [address] VIRChloride [Moles/Vol]98 mmol/QMnyhoi12-506RzaXdbynxChristus Spohn Hospital Corpus Christi – SouthComment on above:Performed By: #### LACTS #### [facility] ([address] [place] [address] VIRCO2 [Moles/Vol]35 mmol/LAsij26-95TlsNvqpvwDoctor's Hospital [facility] Comment on above:Performed By: #### LACTS #### [facility] ([address] [place] [address] VIRCreatinine [Mass/Vol]1.47 mg/dLHigh0.40-1.00Select Medical Specialty Hospital - YoungstownComment on above:Result Comment: METHOD TRACEABLE TO IDMS STANDARDPerformed By: #### LACTS #### [facility] ([address] [place] [address] VIRGFR/1.73 sq M.predicted among non-blacks MDRD (S/P/Bld) [Vol rate/Area]40 mL/min/{1.73_m2}Low>=60ProChristus Spohn Hospital Corpus Christi – SouthComment on above:Result Comment: Reported eGFR is based on the CKD-EPI 2020 equation that does not use a race coefficient.Performed By: #### LACTS #### [facility]ITALM[facility] ([address] [place] [address] VIRGlucose [Mass/Vol]110 mg/aQOzos18-92ZhrJzbawsChristus Spohn Hospital Corpus Christi – SouthComment on above:Performed By: #### LACTS #### [facility] ([address] [place] [address] VIRPotassium [Moles/Vol]4.5 mmol/LNormal3.5-5.0ProChristus Spohn Hospital Corpus Christi – SouthComment on above:Performed By: #### LACTS #### [facility] ([address] [place] [address] VIRSodium [Moles/Vol]143 mmol/ZNbunvw043-763SshSxywjl Fremont HospitalComment on above:Performed By: #### LACTS #### [facility] ([address] [place] [address] VIRUrea nitrogen [Mass/Vol]23 mg/dLNormal5-27Select [facility] Specialty Hospital - YoungstownComment on above:Performed By: #### LACTS #### [facility] ([address] [place] [address] VIRBASIC METABOLIC PANELon 45-04-9420Onkun gap [Moles/Vol]6 mmol/LNormal5-15Select [facility] Specialty Hospital - YoungstownComment on above:Performed By: #### VBG #### [facility] ([address] [place] [address] VIRCalcium [Mass/Vol]9.2 mg/dLNormal8.5-10.5PSelect Medical TriHealth Rehabilitation HospitalComment on above:Performed By: #### VBG #### [facility] ([address] [place] [address] VIRChloride [Moles/Vol]103 mmol/GPhkrgx55-427WxsBnkojwChristus Spohn Hospital Corpus Christi – SouthComment on above:Performed By: #### VBG #### [facility] ([address] [place] [address] VIRCO2 [Moles/Vol]34 mmol/NBgdm71-60WyuZcjrixSelect Medical TriHealth Rehabilitation Hospital Comment on above:Performed By: #### VBG #### [facility] ([address] [place] [address] VIRCreatinine [Mass/Vol]0.84 mg/dLNormal0.40-1.00Select [facility] Hospital - YoungstownComment on above:Result Comment: METHOD TRACEABLE TO IDMS STANDARDPerformed By: #### VBG #### [facility] ([address] [place] [address] VIRGFR/1.73 sq M.predicted among non-blacks MDRD (S/P/Bld) [Vol rate/Area]79 mL/min/{1.73_m2}Normal>=60ProChristus Spohn Hospital Corpus Christi – SouthComment on above:Result Comment: eGFR not reported due to non-numeric value for Creatinine. Reported eGFR is based on the CKD-EPI 202 equation that does not use a race coefficient.Performed By: #### VBG #### [facility] ([address] [place] [address] VIRGlucose [Mass/Vol]126 mg/fSTocj20-23EkxOvizwpChristus Spohn Hospital Corpus Christi – SouthComment on above:Performed By: #### VBG #### [address] [address] VIRPotassium [Moles/Vol]4.3 mmol/LNormal3.5-5.0ProChristus Spohn Hospital Corpus Christi – SouthComment on above:Performed By: #### VBG #### [address] [address] VIRSodium [Moles/Vol]143 mmol/JWkdssg174-718GomYypepy Fremont HospitalComment on above:Performed By: #### VBG #### [address] [address] VIRUrea nitrogen [Mass/Vol]24 mg/dLNormal5-27ProChristus Spohn Hospital Corpus Christi – SouthComment on above:Performed By: #### VBG #### [address] [address] VIRBLOOD GAS, VENOUSon 82-46-8308DLBN,FNNYXP49.0 mmol/LHigh 0.0-2.0ProChristus Spohn Hospital Corpus Christi – SouthComment on above:Performed By: #### LACTS #### [address] [address] VIRHCO3 (Bld) [Moles/Vol]37.4 mmol/LHigh20.0-24.0Select [facility] Special[facility] Hospital - YoungstownComment on above:Performed By: #### LACTS #### [facility] ([address] [address] VIROxygen saturation in Blood80.0 %NormalProChristus Spohn Hospital Corpus Christi – SouthComment on above:Performed By: #### LACTS #### [facility] ([address] [address] VIRPCO2 OYBUBV75.6 kwKgHode85.0-50.0[facility] [place] Comment on above:Performed By: #### LACTS #### [facility] ([address] [address] VIRPH VENOUS7.035Miyfca6.320-7.420[facility] [place] Comment on above:Performed By: #### LACTS #### [facility] ([address] [address] VIRPO2 WUQCFX81 qqUoWmelcr43-01NgnGbqrjkSelect Medical Specialty Hospital - Youngstown Comment on above:Performed By: #### LACTS #### [facility] ([address] [address] VIRPOC RAVINDRA'S TESTN/ANormalProChristus Spohn Hospital Corpus Christi – SouthComment on above:Performed By: #### LACTS #### [facility] ([address] [place] [address] VIRSAMPLE SITEN/ANormalProChristus Spohn Hospital Corpus Christi – SouthComment on above:Performed By: #### LACTS #### [address] [address] VIRSAMPLE TYPEVENOUSNormalSelect Medical Specialty Hospital - YoungstownComment on above:Performed By: #### LACTS #### [facility] ([address] [place] [address] VIRSOURCE OF OXYGENNCNormalProChristus Spohn Hospital Corpus Christi – SouthComment on above:Performed By: #### LACTS #### [facility] ([address] [place] [address] VIRBLOOD GAS, VENOUSVBG BLOOD GAS, VENOUS CancelledNormal [facility] Hospital - YoungstownPHOSPHORUSon 88-43-5634Eekrcfhug [Mass/Vol]3.1 mg/dL Normal2.4-4.9ProChristus Spohn Hospital Corpus Christi – SouthComment on above:Performed By: #### LACTS #### [facility] ([address] [place] [address] VIRBASIC METABOLIC PANELon 74-00-9969Npfuu gap [Moles/Vol]7 mmol/LNormal5-15ProChristus Spohn Hospital Corpus Christi – SouthComment on above:Performed By: #### VBG #### [facility] ([address] [place] [address] VIRCalcium [Mass/Vol]8.8 mg/dLNormal8.5-10.5PSelect Medical TriHealth Rehabilitation HospitalComment on above:Performed By: #### VBG #### [facility] ([address] [place] [address] VIRChloride [Moles/Vol]96 mmol/YTko65-806WzySvkkzrChristus Spohn Hospital Corpus Christi – SouthComment on above:Performed By: #### VBG #### [facility] ([address] [place] [address] VIRCO2 [Moles/Vol]34 mmol/FUmpe76-51YhzOjdqwySelect Medical TriHealth Rehabilitation Hospital Comment on above:Performed By: #### VBG #### [facility] ([address] [place] [address] VIRCreatinine [Mass/Vol]0.91 mg/dLNormal0.40-1.00ProChristus Spohn Hospital Corpus Christi – SouthComment on above:Result Comment: METHOD TRACEABLE TO IDMS STANDARDPerformed By: #### VBG #### [facility] ([address] [address] VIRGFR/1.73 sq M.predicted among non-blacks MDRD (S/P/Bld) [Vol rate/Area]71 mL/min/{1.73_m2}Normal>=60ProChristus Spohn Hospital Corpus Christi – SouthComment on above:Result Comment: eGFR not reported due to non-numeric value for Creatinine. Reported eGFR is based on the CKD-EPI 2020 equation that does not use a race coefficient.Performed By: #### VBG #### [facility] ([address] [address] VIRGlucose [Mass/Vol]140 mg/iHMjto46-67LomAltqoxChristus Spohn Hospital Corpus Christi – SouthComment on above:Performed By: #### VBG #### [address] [address] VIRPotassium [Moles/Vol]4.0 mmol/LNormal3.5-5.0ProChristus Spohn Hospital Corpus Christi – SouthComment on above:Performed By: #### VBG #### [facility] ([address] [address] VIRSodium [Moles/Vol]137 mmol/JHjnmjo464-173DjaGmhuyq [facility]ont HospitalComment on above:Performed By: #### VBG #### [address] [address] VIRUrea nitrogen [Mass/Vol]19 mg/dLNormal5-27ProChristus Spohn Hospital Corpus Christi – SouthComment on above:Performed By: #### VBG #### [address] [address] VIRBEDSIDE GLUCOSEon 56-60-1309Qmurzaq [Mass/Vol]147 mg/dLHigh 65-99ProChristus Spohn Hospital Corpus Christi – SouthComment on above:Performed By: #### VBG #### [facility] ([address] [place] [address] VIRGlucose [Mass/Vol]144 mg/yLTise18-48TcqOlhslhChristus Spohn Hospital Corpus Christi – SouthComment on above:Performed By: #### VBG #### [facility] ([address] [place] [address] VIRBLOOD GAS, VENOUSon 37-62-9173BVRX,EXCESS7.0 mmol/LHigh 0.0-2.0ProChristus Spohn Hospital Corpus Christi – SouthComment on above:Performed By: #### VBG #### [facility] ([address] [place] [address] VIRHCO3 (Bld) [Moles/Vol]34.7 mmol/LHigh20.0-24.0[facility] Hospital - YoungstownComment on above:Performed By: #### VBG #### [facility] ([address] [place] [address] VIROxygen saturation in Blood81.0 %NormalSelect Medical Specialty Hospital - YoungstownComment on above:Performed By: #### VBG #### [facility] ([address] [place] [address] VIRPCO2 WTXFLN32.3 unUpWzdt42.0-50.0[facility] Comment on above:Performed By: #### VBG #### [facility] ([address] [place] [address] VIRPH VENOUS7.759Zuanjo9.320-7.420[facility] Comment on above:Performed By: #### VBG #### [facility] ([address] [place] [address] VIRPO2 OCFCVY48 buYqWnsmpo77-09FkkRjrivfSelect Medical Specialty Hospital - Youngstown Comment on above:Performed By: #### VBG #### [facility] ([address] [place] [address] VIRPOC RAVINDRA'S TESTN/ANormalProWilson Street Hospitalca [facility] HospitalComformerly [facility] on above:Performed By: #### VBG #### [facility] ([facility]) [address] [place] [address]. [place] [address] VIRSAMPLE SITEN/ANormalProChristus Spohn Hospital Corpus Christi – SouthComformerly [facility] on above:Performed By: #### VBG #### [facility] ([facility]) [address] [place] [address]. [place] [address] VIRSAMPLE [address]VEN[address]SN[address] Hospitalca [facility]byterian HospitalComment on above:Performed By: #### VBG #### [facility] ([address] [place] [address] VIRSOURCE OF OXYGENNCNormalProChristus Spohn Hospital Corpus Christi – SouthComment on above:Performed By: #### VBG #### [facility] ([facility]) [address] [place] [address]. [place] [address] VIRBLOOD GAS, VENOUSVBG BLOOD GAS, VENOUS CancelledNormal [facility] WITH AUTO DIFFERENTIALon 38-30-0219OAHQJJAMJ ABSOLUTE COUNT (10*3/UL) BY AUTOMATED COUNT0.0 10*3/uLNormal0.0-0.2ProMedica [facility] HospitalComformerly [facility] on above:Result Comment: This is an appended report. These results have been appended to a previously preliminary verified report. Performed By: #### VBG #### [facility] ([facility]) [address] [place] [address]. [place] [address] VIRBASOPHILS RELATIVE PERCENT BY AUTOMATED COUNT0.2 %Normal [facility] - YoungstownComformerly [facility] on above:Result Comment: This is an appended report. These results have been appended to a previously preliminary verified report.Performed By: #### VBG #### [facility] ([address] [place] [address] VIRCELLAVISION ANISOCYTOSIS IN BLOOD BY LIGHT MICROSCOPY2+ NormalProWilson Street Hospitalca Fonda HospitalComment on above:Result Comment: This is an appended report. These results have been appended to a previously preliminary verified report.Performed By: #### VBG #### [facility] ([facility]) [address] [place] [address] VIRCELLAVISION DIFFERENTIAL TYPEAUTOMATED DIFFERENTIALNormal [facility] on above:Result Comment: This is an appended report. These results have been appended to a previously preliminary verified report.Performed By: #### VBG #### [facility] ([address] [address] VIRCELLAVISION MICROCYTES IN BLOOD BY LIGHT MICROSCOPY2+Normal [facility] on above:Result Comment: This is an appended report. These results have been appended to a previously preliminary verified report.Performed By: #### VBG #### [facility] ([address] [address] VIRCELLAVISION RBC MORPHOLOGYabnormalNoMemorial Health System Selby General HospitalComformerly [facility] on above:Result Comment: This is an appended report. These results have been appended to a previously preliminary verified report.Performed By: #### VBG #### [facility] ([address] [address] VIRCELLAVISION STOMATOCYTES IN BLOOD BY LIGHT MICROSCOPY3+ NormalCleveland Clinic [facility] General on above:Result Comment: This is an appended report. These results have been appended to a previously preliminary verified report.Performed By: #### VBG #### [facility] ([address] [address] VIREosinophils (Bld) [#/Vol]0.0 10*3/uLNormal0.0-0.4[facility] on above:Result Comment: This is an appended report. These results have been appended to a previously preliminary verified report. Performed By: #### VBG #### [facility] ([address] [address] VIREOSINOPHILS RELATIVE PERCENT BY AUTOMATED COUNT0.0 %Normal [facility] on above:Result Comment: This is an appended report. These results have been appended to a previously preliminary verified report.Performed By: #### VBG #### [facility] ([address] [address] VIRErythrocyte distribution width (RBC) [Ratio]19.6 %High 11.5-15[facility] Hospital - YoungstownComment on above:Performed By: #### VBG #### [facility] ([address] [address] VIRHematocrit (Bld) [Volume fraction]27.7 %Wyu77-92YpoPbfvukChristus Spohn Hospital Corpus Christi – SouthComment on above:Performed By: #### VBG #### [facility] ([address] [address] VIRHemoglobin (Bld) [Mass/Vol]8.2 g/dLLow11.7-15.5PSelect Medical TriHealth Rehabilitation HospitalComment on above:Performed By: #### VBG #### [address] [address] VIRLYMPHOCYTES ABSOLUTE COUNT (10*3/UL) BY AUTOMATED COUNT0.5 10*3/uLLow1.0-3.5PSelect Medical TriHealth Rehabilitation HospitalComment on above:Result Comment: This is an appended report. These results have been appended to a previously prelimi nary verified report.Performed By: #### VBG #### [facility] ([address] [address] VIRLYMPHOCYTES RELATIVE PERCENT BY AUTOMATED COUNT5.3 %Normal [facility] - YoungstownComformerly [facility] on above:Result Comment: This is an appended report. These results have been appended to a previously preliminary verified report.Performed By: #### VBG #### [facility] ([address] [address] VIRH (RBC) [Entitic mass]19.4 wvVap33-98JvnHtzstdChristus Spohn Hospital Corpus Christi – SouthComment on above:Performed By: #### VBG #### [facility] ([address] [address] VIRMCHC (RBC) [Mass/Vol]29.7 g/vZZyz70-13JlaBiljstChristus Spohn Hospital Corpus Christi – SouthComment on above:Performed By: #### VBG #### [facility] ([address] [address] VIRV (RBC) [Entitic vol]65 aKDff84-472PmjLebpdrChristus Spohn Hospital Corpus Christi – SouthComment on above:Performed By: #### VBG #### [facility] ([address] [address] VIRMONOCYTES ABSOLUTE COUNT (10*3/UL) BY AUTOMATED COUNT0.2 10*3/uLNormal0.0-0.9[facility] on above:Result Comment: This is an appended report. These results have been appended to a previously preliminary verified report.Performed By: #### VBG #### [facility] ([address] [address] VIRMONOCYTES RELATIVE PERCENT BY AUTOMATED COUNT2.3 %Normal [facility] on above:Result Comment: This is an appended report. These results have been appended to a previously preliminary verified report.Performed By: #### VBG #### [facility] ([address] [address] VIRNEUTROPHILS ABSOLUTE COUNT BY AUTOMATED COUNT8.3 10*3/uL High1.5-6.6[facility] YoungstownComformerly [facility] on above:Result Comment: This is an appended report. These results have been appended to a previously preliminary verified report.Performed By: #### VBG #### [facility] ([address] [address] VIRNEUTROPHILS RELATIVE PERCENT BY AUTOMATED COUNT92.2 %Normal [facility] on above:Result Comment: This is an appended report. These results have been appended to a previously preliminary verified report.Performed By: #### VBG #### [facility] ([address] [address] VIRPlatelet mean volume (Bld) [Entitic vol]7.3 fLNormal7-12 [facility] - YoungstownComformerly [facility] on above:Performed By: #### VBG #### [facility] ([address] [address] VIRPlatelets (Bld) [#/Vol]238 10*3/wMLsyvqc108-532NgcBqfjsy [facility] HospitalComformerly [facility] on above:Performed By: #### VBG #### [facility] ([address] [address] VIRRBC COUNT4.24 X10E12/LNormal3.8-5.2ProMedica [facility] Presbyterian HospitalComment on above:Performed By: #### VBG #### [facility] ([address] [address] VIRWBC (Bld) [#/Vol]9.1 10*3/uLNormal4-11[facility] - YoungstownComformerly [facility] on above:Performed By: #### VBG #### [facility] ([address] [address] VIRLOWER RESP CULTURE SPUTUM CULTURE INC GRAM STAINon 33-43-9653GDWIH RESP CULTURE SPUTUM CULTURE INC GRAM STAINCULTURE RESULTS CULTURE CANCELLED. SPECIMEN DOES NOT MEET CRITERIA FOR CULTURING. PLEASE REORDER AND RESUBMIT. GRAM STAIN >25 Squamous Epithelial Cells/LPF with Mixed Bacterial Types Seen. Regarded as Saliva not SputumNormalProLakehealth Beachwood Medical Center HospitalComment on above:Performed By: #### LACTS #### [facility] ([address] [place] [address] VIRPHOSPHORUSon 94-70-8876Xjmdnecna [Mass/Vol]2.3 mg/dLLow 2.4-4.9ProChristus Spohn Hospital Corpus Christi – SouthComment on above:Performed By: #### VBG #### [facility] ([address] [place] [address] VIRB-TYPE NATRIURETIC PEPTIDEon [id number] peptide B (Bld) [Mass/Vol]259 pg/mLHigh<=100ProChrist[facility] Christi – SouthComment on above: Performed By: #### BMP #### [facility] ([facility]) [address] [place] [address] VIRBEDSIDE GLUCOSEon [id number] [Mass/Vol]125 mg/dLHigh 65-99ProL[facility] Medical Center HospitalComment on above:Performed By: #### VBG #### [facility] ([address] [place] [address] VIRGlucose [Mass/Vol]165 mg/aEWgkf70-15EapGavvzl [facility]remont HospitalComment on above:Performed By: #### VBG #### [facility] ([address] [address] VIRGlucose [Mass/Vol]196 mg/uVHved02-55SeaMyopcz [facility]remont HospitalComment on above:Performed By: #### BMP #### [facility] ([facility]) [address] [place] [address] VIRGlucose [Mass/Vol]167 mg/jPXgcy77-79XicQqpbyt [facility]ont HospitalComment on above:Performed By: #### BMP #### [facility] ([facility]) [address] [place] [address] VIRBLOOD GAS, VENOUSon 47-64-3858IXLA,EXCESS7.0 mmol/LHigh 0.0-2.0[facility] - YoungstownComment on above:Performed By: #### BMP #### [facility] ([facility]) [address] [place] [address] VIRHCO3 (Bld) [Moles/Vol]36.1 mmol/LHigh20.0-24.0[facility] - YoungstownComment on above:Performed By: #### BMP #### [facility] ([facility]) [address] [place] [address] VIRINSP. O2 CONC.50 %[facility] Memorial HospitalComment on above:Performed By: #### BMP #### [facility] ([facility]) [address] [place] [address] VIROxygen saturation in Blood38.0 %Wilson Memorial HospitalComment on above:Performed By: #### BMP #### [facility] ([facility]) [address] [place] [address] VIRPCO2 RRJGQA94.0 taYtSoma02.0-50.0[facility] [place] Comment on above:Performed By: #### BMP #### [facility] ([facility]) [address] [place] [address] VIRPH VENOUS7.659Kgl8.320-7.420[facility] [place] Comment on above:Performed By: #### BMP #### [facility] ([facility]) [address] [place] [address] VIRPO2 VIAQZI63 wkDgFmk45-41ZoeVklfdaSelect Medical Specialty Hospital - YoungstownComment on above:Performed By: #### BMP #### [facility] ([facility]) [address] [place] [address] VIRPOC RAVINDRA'S TESTN/ANormalProChristus Spohn Hospital Corpus Christi – SouthComment on above:Performed By: #### BMP #### [facility] ([facility]) [address] [place] [address] VIRSAMPLE SITEN/ANormalSelect Medical Specialty Hospital - YoungstownComment on above:Performed By: #### BMP #### [facility] ([facility]) [address] [place] [address] VIRSAMPLE TYPEVENOUSNormalSelect Medical Specialty Hospital - YoungstownComment on above:Performed By: #### BMP #### [facility] ([facility]) [address] [place] [address] VIRSOURCE OF OXYGENNCNormalSelect Medical Specialty Hospital - YoungstownComment on above:Performed By: #### BMP #### [facility] ([facility]) [address] [place] [address] VIRBLOOD GAS, VENOUSVBG BLOOD GAS, VENOUS CancelledNormal [facility] - YoungstownBASE,EXCESS6.0 mmol/LHigh0.0-2.0[facility] Hospital - YoungstownComment on above:Performed By: #### VBG ####[facility] ([address] [place] [address] VIRHCO3 (Bld) [Moles/Vol]38.1 mmol/LHigh20.0-24.0[facility] Hospital - YoungstownComment on above:Performed By: #### VBG ####[facility] ([address] [place] [address] VIRINSP. O2 CONC.40 %[facility] Comment on above:Performed By: #### VBG ####[facility] ([address] [place] [address] VIROxygen saturation in Blood38.0 % Wilson Memorial HospitalComment on above:Performed By: #### VBG ####[facility] ([address], [place] [address] VIRPCO2 JKIMRC820.3 ciFpRsyj41.0-50.0[facility] Hospital - YoungstownComment on above:Performed By: #### VBG ####[facility] ([address] [address] VIRPH VENOUS7.730Rgb7.320-7.420ProChristus Spohn Hospital Corpus Christi – SouthComment on above:Performed By: #### VBG ####[facility] ([address] [address] VIRPO2 TYMOTV76 mmHg Rck00-38OraIxlbfoChristus Spohn Hospital Corpus Christi – SouthComment on above:Performed By: #### VBG ####[facility] ([address] [address] VIRPOC RAVINDRA'S TESTN/ANormalSelect Medical Specialty Hospital - YoungstownComment on above: Performed By: #### VBG ####[facility] ([address] [address] VIRSAMPLE SITEN/ANoalSelect Medical Specialty Hospital - Youngstown Comment on above:Performed By: #### VBG ####[facility] ([address] [address] VIRSAMPLE TYPEVENOUSNoalSelect Medical Specialty Hospital - YoungstownComment on above:Performed By: #### VBG ####[facility] ([address] [address] VIRSOURCE OF OXYGEN NPPVNormalSelect Medical Specialty Hospital - YoungstownComment on above:Performed By: #### VBG ####[address] [address] VIRBLOOD GAS, VENOUSVBG BLOOD GAS, VENOUS CancelledNormalProChristus Spohn Hospital Corpus Christi – SouthCB WITH AUTO DIFFERENTIALon 68-11-3257Pgaqvgjywd stippling LM Ql (Bld) 1+NormalProChristus Spohn Hospital Corpus Christi – SouthComment on above:Result Comment: This is an appended report. These results have been appended to a previously preliminary verified report.Performed By: #### BMP #### [facility] ([facility]) [address] [place] [address] VIRBASOPHILS ABSOLUTE COUNT (10*3/UL) BY AUTOMATED COUNT0.0 10*3/uLNormal0.0-0.2[facility] on above:Result Comment: This is an appended report. These results have been appended to a previously preliminary verified report.Performed By: #### BMP #### [facility] ([facility]) [address] [place] [address] VIRBASOPHILS RELATIVE PERCENT BY AUTOMATED COUNT0.2 %Normal [facility] YoungstownComformerly [facility] on above:Result Comment: This is an appended report. These results have been appended to a previously preliminary verified report.Performed By: #### BMP #### [facility] ([facility]) [address] [place] [address] VIRCELLAVISION DIFFERENTIAL TYPEAUTOMATED DIFFERENTIALNormal [facility] YoungstownComformerly [facility] on above:Result Comment: This is an appended report. These results have been appended to a previously preliminary verified report.Performed By: #### BMP #### [facility] ([facility]) [address] [place] [address] VIRCELLAVISION ELLIPTOCYTES IN BLOOD BY LIGHT MICROSCOPY1+ NormalProChristus Spohn Hospital Corpus Christi – SouthComformerly [facility] on above:Result Comment: This is an appended report. These results have been appended to a previously preliminary verified report.Performed By: #### BMP #### [facility] ([facility]) [address] [place] [address] VIRCELLAVISION POLYCHROMASIA IN BLOOD BY LIGHT MICROSCOPY1+ NormalCleveland Clinic [facility] on above:Result Comment: This is an appended report. These results have been appended to a previously preliminary verified report.Performed By: #### BMP #### [facility] ([facility]) [address] [place] [address] VIRCELLAVISION STOMATOCYTES IN BLOOD BY LIGHT MICROSCOPY1+ NormalSelect Medical Specialty Hospital - YoungstownComformerly [facility] on above:Result Comment: This is an appended report. These results have been appended to a previously preliminary verified report.Performed By: #### BMP #### [facility] ([facility]) [address] [place] [address] VIREosinophils (Bld) [#/Vol]0.0 10*3/uLNormal0.0-0.4Select [facility] Hospital - YoungstownComment on above:Result Comment: This is an appended report. These results have been appended to a previously preliminary verified report. Performed By: #### BMP #### [facility] ([facility]) [address] [place] [address] VIREOSINOPHILS RELATIVE PERCENT BY AUTOMATED COUNT0.0 %Normal ProMSt. Francis Medical CenterComformerly [facility] on above:Result Comment: This is an appended report. These results have been appended to a previously preliminary verified report.Performed By: #### BMP #### [facility] ([facility]) [address] [place] [address] VIRErythrocyte distribution width (RBC) [Ratio]20.2 %High 11.5-15ProChristus Spohn Hospital Corpus Christi – SouthComment on above:Performed By: #### BMP #### [facility] ([facility]) [address] [place] [address] VIRHematocrit (Bld) [Volume fraction]34.4 %Lqn87-32LvaVvtzyoSelect Medical Specialty Hospital - YoungstownComment on above:Performed By: #### BMP #### [facility] ([facility]) [address] [place] [address] VIRHemoglobin (Bld) [Mass/Vol]9.8 g/dLLow11.7-15.5PSelect Medical TriHealth Rehabilitation HospitalComment on above:Performed By: #### BMP #### [facility] ([facility]) [address] [place] [address] VIRLYMPHOCYTES ABSOLUTE COUNT (10*3/UL) BY AUTOMATED COUNT0.5 10*3/uLLow1.0-3.5PKeenan Private Hospital on above:Result Comment: This is an appended report. These results have been appended to a previously prelimi nary verified report.Performed By: #### BMP #### [facility] ([facility]) [address] [place] [address] VIRLYMPHOCYTES RELATIVE PERCENT BY AUTOMATED COUNT3.7 %Normal [facility] YoungstownComformerly [facility] on above:Result Comment: This is an appended report. These results have been appended to a previously preliminary verified report.Performed By: #### BMP #### [facility] ([facility]) [address] [place] [address] VIRMCH (RBC) [Entitic mass]19.1 slWfz99-60QxmMngdmeChristus Spohn Hospital Corpus Christi – SouthComformerly [facility] on above:Performed By: #### BMP #### [facility] ([facility]) [address] [place] [address] VIRMCHC (RBC) [Mass/Vol]28.5 g/rTUaq76-88IarFzipveSelect Medical Specialty Hospital - YoungstownComformerly [facility] on above:Performed By: #### BMP #### [facility] ([facility]) [address] [place] [address] VIRMCV (RBC) [Entitic vol]67 oBDro93-129StfBgoeobChristus Spohn Hospital Corpus Christi – SouthComformerly [facility] on above:Performed By: #### BMP #### [facility] ([facility]) [address] [place] [address] VIRMONOCYTES ABSOLUTE COUNT (10*3/UL) BY AUTOMATED COUNT0.9 10*3/uLNormal0.0-0.9[facility] on above:Result Comment: This is an appended report. These results have been appended to a previously preliminary verified report.Performed By: #### BMP #### [facility] ([facility]) [address] [place] [address] VIRMONOCYTES RELATIVE PERCENT BY AUTOMATED COUNT6.7 %Normal [facility] Hospital - YoungstownComment on above:Result Comment: This is an appended report. These results have been appended to a previously preliminary verified report.Performed By: #### BMP #### [facility] ([facility]) [address] [place] [address] VIRNEUTROPHILS ABSOLUTE COUNT BY AUTOMATED COUNT12.0 10*3/uL High1.5-6.6[facility] YoungstownComformerly [facility] on above:Result Comment: This is an appended report. These results have been appended to a previously preliminary verified report.Performed By: #### BMP #### [facility] ([facility]) [address] [place] [address] VIRNEUTROPHILS RELATIVE PERCENT BY AUTOMATED COUNT89.4 %Normal [facility] YoungstownComformerly [facility] on above:Result Comment: This is an appended report. These results have been appended to a previously preliminary verified report.Performed By: #### BMP #### [facility] ([facility]) [address] [place] [address] VIRPlatelet mean volume (Bld) [Entitic vol]6.9 fLLow7-12 [facility] Hospital - YoungstownComment on above:Performed By: #### BMP #### [facility] ([facility]) [address] [place] [address] VIRPlatelets (Bld) [#/Vol]354 10*3/oVPfrdlc909-432ZncMsrlhk Fremont HospitalComment on above:Performed By: #### BMP #### [facility] ([facility]) [address] [place] [address] VIRRBC COUNT5.13 X10E12/LNormal3.8-5.2PSelect Medical TriHealth Rehabilitation HospitalComment on above:Performed By: #### BMP #### [facility] ([facility]) [address] [place] [address] VIRWBC (Bld) [#/Vol]13.5 10*3/uLHigh4-11[facility] Hospital - YoungstownComment on above:Performed By: #### BMP #### [facility] ([facility]) [address] [place] [address] VIRCOMPREHENSIVE METABOLIC PANELon 59-06-1276Iujdaes [Mass/Vol] 3.7 g/dLNormal3.2-5.3PSelect Medical TriHealth Rehabilitation HospitalComment on above:Performed By: #### CMP ####[facility] ([facility])[address] [place] [address] VIRALP [Catalytic activity/Vol]138 U/ENphm74-582ZdcVkhxvlChristus Spohn Hospital Corpus Christi – SouthComment on above:Performed By: #### CMP ####[facility] ([place] [address] [place] [address] VIRALT [Catalytic activity/Vol]36 U/LHigh<=31ProMedDoctor's Hospital Montclair Medical CenterComment on above:Performed By: #### CMP ####[facility] ([facility])[address] [place] [address] VIRAnion gap [Moles/Vol]9 mmol/LNormal5-15ProChristus Spohn Hospital Corpus Christi – SouthComment on above:Performed By: #### CMP ####[facility] ([facility] [place] [address] VIRAST [Catalytic activity/Vol]38 U/LNormal<=41ProChristus Spohn Hospital Corpus Christi – SouthComment on above: Performed By: #### CMP ####[facility] ([facility] [place] [address] VIRBilirubin [Mass/Vol]0.3 mg/dLNormal0.3-1.2 [facility] - YoungstownComment on above:Performed By: #### CMP ####[facility] ([place] [address] [place] [address] VIRCalcium [Mass/Vol]9.0 mg/dLNormal8.5-10.5PSelect Medical TriHealth Rehabilitation HospitalComment on above: Performed By: #### CMP ####[facility] ([address] [place] [address] VIRChloride [Moles/Vol]96 mmol/OXjq85-917HutYersrjChristus Spohn Hospital Corpus Christi – SouthComment on above:Performed By: #### CMP ####[facility] ([address] [place] [address] VIRCO2 [Moles/Vol]36 mmol/ZYcef21-98NayAqgznrSelect Medical TriHealth Rehabilitation HospitalComment on above:Performed By: #### CMP ####[facility] ([address] [address] VIRCreatinine [Mass/Vol]1.45 mg/dLHigh0.40-1.00[facility] [place] Comment on above:Result Comment: METHOD TRACEABLE TO IDMS STANDARDPerformed By: #### CMP ####[facility] ([address] [address] VIRGFR/1.73 sq M.predicted among non-blacks MDRD (S/P/Bld) [Vol rate/Area]41 mL/min/{1.73_m2}Low>=60ProChristus Spohn Hospital Corpus Christi – SouthComment on above:Result Comment: eGFR not reported due to non-numeric value for Creatinine. Reported eGFR is based on the CKD-EPI 2021 equation that does not use a race coefficient.Performed By: #### CMP ####[facility] ([address] [address] VIRGlucose [Mass/Vol]133 mg/jUBmbk93-75UwlEppsxrChristus Spohn Hospital Corpus Christi – SouthComment on above:Performed By: #### CMP ####[facility] ([address] [address] VIRPotassium [Moles/Vol]4.2 mmol/LNormal3.5-5.0[facility] Comment on above:Performed By: #### CMP ####[facility] ([facility] [place] [address] VIRProtein [Mass/Vol]7.8 g/dLNormal 6.0-8.0[facility] - YoungstownComment on above:Performed By: #### CMP ####[facility] ([address] [address] VIRSodium [Moles/Vol]141 mmol/KSmmxsg284-543MztHomacxSelect Medical Specialty Hospital - [place] Comment on above:Performed By: #### CMP ####[facility] ([address] [address] VIRUrea nitrogen [Mass/Vol]21 mg/dL Normal5-27ProChristus Spohn Hospital Corpus Christi – SouthComment on above:Performed By: #### CMP ####[facility] ([address] [address] VIRLACTATE W/ REFLEXon 26-45-2850UEIIOKY W/REFLEX1.0 mmol/LNormal0.4-2.0 [facility] - YoungstownComment on above:Order Comment: Result did not trigger repeat Lactate,re-order if needed.Performed By: #### LACTS ####[facility] ([address] [address] VIR PHOSPHORUSon 15-57-6053Qnqwstsmb [Mass/Vol]6.1 mg/dLHigh2.4-4.9ProChristus Spohn Hospital Corpus Christi – SouthComment on above:Performed By: #### BMP #### [facility] ([facility]) [address] [place] [address] VIRPROCALCITONINon 97-56-9454FOUWVLCQVKBZF6.13 ng/mLHigh<0.05 [facility] - YoungstownComment on above:Order Comment: <0.50 ng/mL - Low risk of severe sepsis and/or septic shock.<2.00 ng/mL - Recommend retesting within 6-24 hours.>2.00 ng/mL - High risk of sepsis and/or septic shock.Performed By: #### BMP #### [facility] ([facility]) [address] [place] [address] VIRTROP I, HIGH SENSITIVITY 1 HOURon 88-40-8919QQAHISMD I, HIGH SXSKJSAMYEE11 ng/LHigh<16[facility] - YoungstownComment on above:Order Comment: Elevations of hs-Troponin may be due to causesother than myocardial ischemia.Recommend serial hs-Troponin testing be performed.For the initial evaluation and management of chestpain patients, refer to the algorithms linked below.Emergency Patient:[email or web address]:[email or web address] By: #### BMP #### [facility] ([facility]) [address] [place] [address] VIRTROPONIN I, HIGH SENSITIVITY 0 HOURon 34-56-8454IYRVZXKJ I, HIGH WDBBUNXNGXW15 ng/LHigh<16[facility] - YoungstownComment on above: Performed By: #### BMP #### [facility] ([facility]) [address] [place] [address] VIRXR CHEST 1 VWon 35-18-1158JO CHEST 1 VWXR CHEST 1 VW Single view chest History:SOB Difficulty breathing, shortness of breath Comparison: 12/03/2024 Findings: Single portable view of the chest. Right lower lung atelectasis versus pneumonia, stable. Stable cardiac mediastinal silhouette. Prior median sternotomy. Impression: No significant interval change. Finalized by Victor Hugo Kim MD on 12/04/2024 7:13 AMNormalProChristus Spohn Hospital Corpus Christi – SouthB-TYPE NATRIURETIC PEPTIDEon 47-37-5876Lnxvmxkrgnf peptide B (Bld) [Mass/Vol]196 pg/mLHigh<=100ProChristus Spohn Hospital Corpus Christi – SouthComment on above:Performed By: #### BNP ####[facility] ([facility])[address] [place] [address] VIRBLOOD CULTUREon 48-21-8115Qcgggorr identified Cx Nom (Bld)CULTURE RESULTS NO GROWTH 5 DAYSNoMemorial Health System Selby General HospitalComment on above:Order Comment: *SIRS Criteria: (must display 2 without [...] patients with suspected urinary source who are improvingPerformed By: #### BC ####[facility] ([facility])[address] [facility] [address], [place] [address] VIRBacteria identified Cx Nom (Bld)CULTURE RESULTS NO GROWTH 5 DAYSNoMemorial Health System Selby General HospitalComment on above:Order Comment: *SIRS Criteria: (must display 2 without other explanation)-Temperature < 36 or >38-Pulse >90-Resp rate >20-WBC less than 4K or greater than 12KRepeat blood cultures not needed:-To document that a blood culture is a contaminant when 1 of 2 bottles is positive for a common contaminant (already listed in [facility] with the culture result)-To document clearance of gram negative bacteremia in patients with suspected urinary source who are improvingPerformed By: #### BC ####[facility] ([facility])[address], [place] [address] VIRBLOOD GAS, VENOUSon 64-69-4095TZLO,EXCESS6.0 mmol/LHigh0.0-2.0ProChristus Spohn Hospital Corpus Christi – SouthComment on above:Performed By: #### VBG #### [facility] ([facility]) [address] [place] [address] VIRHCO3 (Bld) [Moles/Vol]33.9 mmol/LHigh20.0-24.0[facility] - YoungstownComment on above:Performed By: #### VBG #### [facility] ([address] [address] VIROxygen saturation in Blood50.0 %NormalProChristus Spohn Hospital Corpus Christi – SouthComment on above:Performed By: #### VBG #### [facility] ([address] [place] [address] VIRPCO2 EAQYCC87.5 jpMzYcms72.0-50.0[facility] Comment on above:Performed By: #### VBG #### [facility] ([address] [address] VIRPH VENOUS7.700Krs2.320-7.420[facility] [place] Comment on above:Performed By: #### VBG #### [facility] ([address] [address] VIRPO2 ZECPRV26 dcIyLglfeh10-76GttNtsuitSelect Medical Specialty Hospital - [place] Comment on above:Performed By: #### VBG #### [facility] ([address] [address] VIRPOC RAVINDRA'S TESTN/ANormalSelect Medical Specialty Hospital - YoungstownComment on above:Performed By: #### VBG #### [facility] ([address] [address] VIRSAMPLE SITEN/ANormalProChristus Spohn Hospital Corpus Christi – SouthComment on above:Performed By: #### VBG #### [facility] ([address] [place] [address] VIRSAMPLE TYPEVENOUSNormalSelect Medical Specialty Hospital - YoungstownComment on above:Performed By: #### VBG #### [facility] ([address] [place] [address] VIRSOURCE OF OXYGENNCNormalProChristus Spohn Hospital [facility] Christi – SouthComformerly [facility] on above:Performed By: #### VBG #### [facility] ([facility]) [address] [place], [place] [address]. [place] [address] VIRBLOOD GAS, VENOUSVBG BLOOD GAS, VENOUS CancelledNormal [facility] WITH AUTO DIFFERENTIALon [id number] ABSOLUTE COUNT (10*3/UL) BY AUTOMATED COUNT0.1 10*3/uLNormal0.0-0.2Pro[facility]byterian HospitalComformerly [facility] on above:Result Comment: This is an appended report. These results have been appended to a previously preliminary verified report. Performed By: #### CBCA #### [facility] ([address] [place] [address] VIRBASOPHILS RELATIVE PERCENT BY AUTOMATED COUNT0.8 %Normal [facility] on above:Result Comment: This is an appended report. These results have been appended to a previously preliminary verified report.Performed By: #### CBCA #### [facility] ([address] [address] VIRCELLAVISION ANISOCYTOSIS IN BLOOD BY LIGHT MICROSCOPY2+ NormalCleveland Clinic [facility] on above:Result Comment: This is an appended report. These results have been appended to a previously preliminary verified report.Performed By: #### CBCA #### [facility] ([address] [place] [address] VIRCELLAVISION DIFFERENTIAL TYPEAUTOMATED DIFFERENTIALNormal [facility] YoungstownComformerly [facility] on above:Result Comment: This is an appended report. These results have been appended to a previously preliminary verified report.Performed By: #### CBCA #### [facility] ([address] [place] [address] VIRCELLAVISION MICROCYTES IN BLOOD BY LIGHT MICROSCOPY2+Normal [facility] on above:Result Comment: This is an appended report. These results have been appended to a previously preliminary verified report.Performed By: #### CBCA #### [address] [address] VIRCELLAVISION RBC MORPHOLOGYReviewedNormalCleveland Clinic [facility] on above:Result Comment: This is an appended report. These results have been appended to a previously preliminary verified report.Performed By: #### CBCA #### [facility] ([address] [address] VIREosinophils (Bld) [#/Vol]0.1 10*3/uLNormal0.0-0.4[facility] on above:Result Comment: This is an appended report. These results have been appended to a previously preliminary verified report. Performed By: #### CBCA #### [address] [address] VIREOSINOPHILS RELATIVE PERCENT BY AUTOMATED COUNT1.3 %Normal [facility] on above:Result Comment: This is an appended report. These results have been appended to a previously preliminary verified report.Performed By: #### CBCA #### [address] [address] VIRErythrocyte distribution width (RBC) [Ratio]19.7 %High 11.5-15ProChristus Spohn Hospital [facility] Christi – SouthComformerly [facility] on above:Performed By: #### CBCA #### [address] [address] VIRHematocrit (Bld) [Volume fraction]31.1 %Exb81-97KxnQxdsxzChristus Spohn Hospital Corpus Christi – SouthComformerly [facility] on above:Performed By: #### CBCA #### [address] [address] VIRHemoglobin (Bld) [Mass/Vol]9.3 g/dLLow11.7-15.5PSelect Medical TriHealth Rehabilitation HospitalComment on above:Performed By: #### CBCA #### [facility] ([address] [address] VIRLYMPHOCYTES ABSOLUTE COUNT (10*3/UL) BY AUTOMATED COUNT1.3 10*3/uLNormal1.0-3.5PSelect Medical TriHealth Rehabilitation HospitalComformerly [facility] on above:Result Comment: This is an appended report. These results have been appended to a previously preliminary verified report.Performed By: #### CBCA #### [facility] ([address] [address] VIRLYMPHOCYTES RELATIVE PERCENT BY AUTOMATED COUNT11.2 %Normal [facility] on above:Result Comment: This is an appended report. These results have been appended to a previously preliminary verified report.Performed By: #### CBCA #### [facility] ([address] [address] VIRMCH (RBC) [Entitic mass]19.3 oyWfq54-27IkgEpxmwuChristus Spohn Hospital Corpus Christi – SouthComment on above:Performed By: #### CBCA #### [facility] ([address] [address] VIRMCHC (RBC) [Mass/Vol]29.7 g/hKRcd17-39WzpRtkkooChristus Spohn Hospital Corpus Christi – SouthComment on above:Performed By: #### CBCA #### [facility] ([address] [address] VIRMCV (RBC) [Entitic vol]65 mELyq55-378HyyJtllccChristus Spohn Hospital Corp[facility] Christi – SouthComformerly [facility] on above:Performed By: #### CBCA #### [facility] ([address] [address] VIRMONOCYTES ABSOLUTE COUNT (10*3/UL) BY AUTOMATED COUNT0.7 10*3/uLNormal0.0-0.9ProWilson [address] Hospitalca Fonda HospitalComment on above:Result Comment: This is an appended report. These results have been appended to a previously preliminary verified report.Performed By: #### CBCA #### [facility] ([facility]) [address] [place] [address] VIRMONOCYTES RELATIVE PERCENT BY AUTOMATED COUNT5.9 %Normal [facility] YoungstownComformerly [facility] on above:Result Comment: This is an appended report. These results have been appended to a previously preliminary verified report.Performed By: #### CBCA #### [facility] ([address] [address] VIRNEUTROPHILS ABSOLUTE COUNT BY AUTOMATED COUNT9.1 10*3/uL High1.5-6.6Select [facility] Hospital - YoungstownComment on above:Result Comment: This is an appended report. These results have been appended to a previously preliminary verified report.Performed By: #### CBCA #### [facility] ([address] [address] VIRNEUTROPHILS RELATIVE PERCENT BY AUTOMATED COUNT80.8 %Normal [facility] Hospital - YoungstownComformerly [facility] on above:Result Comment: This is an appended report. These results have been appended to a previously preliminary verified report.Performed By: #### CBCA #### [facility] ([address] [address] VIRPlatelet mean volume (Bld) [Entitic vol]7.3 fLNormal7-12 [facility] Hospital - YoungstownComment on above:Performed By: #### CBCA #### [facility] ([address] [address] VIRPlatelets (Bld) [#/Vol]391 10*3/fRObreik608-606GssPnzvhm [facility]remont HospitalComment on above:Performed By: #### CBCA #### [facility] ([address] [address] VIRRBC COUNT4.79 X10E12/LNormal3.8-5.2PSelect Medical TriHealth Rehabilitation HospitalComment on above:Performed By: #### CBCA #### [facility] ([place] [address] [place] [address] VIRWBC (Bld) [#/Vol]11.3 10*3/uLHigh4-11ProChristus Spohn Hospital Corpus Christi – SouthComment on above:Performed By: #### CBCA #### [facility] ([place] [address] [place] [address] VIRCOMPREHENSIVE METABOLIC PANELon 35-14-5031Hnemeze [Mass/Vol]3.9 g/dLNormal3.2-5.3PSelect Medical TriHealth Rehabilitation HospitalComment on above: Performed By: #### CMP #### [facility] ([place] [address] [place] [address] VIRALP [Catalytic activity/Vol]112 U/YAkaikb73-587MycAahqswChristus Spohn Hospital Corpus Christi – SouthComment on above:Performed By: #### CMP #### [facility] ([place] [address] [place] [address] VIRALT [Catalytic activity/Vol]24 U/LNormal<=31PSelect Medical TriHealth Rehabilitation HospitalComment on above:Performed By: #### CMP #### [facility] ([place] [address] [place] [address] VIRAnion gap [Moles/Vol]5 mmol/LNormal5-15ProChristus Spohn Hospital Corpus Christi – SouthComment on above:Performed By: #### CMP #### [facility] ([place] [address] [place] [address] VIRAST [Catalytic activity/Vol]24 U/LNormal<=41ProChristus Spohn Hospital Corpus Christi – SouthComment on above:Performed By: #### CMP #### [facility] ([place] [address] [place] [address] VIRBilirubin [Mass/Vol]0.3 mg/dLNormal0.3-1.2PSelect Medical TriHealth Rehabilitation HospitalComment on above:Performed By: #### CMP #### [facility] ([address] [place] [address] VIRCalcium [Mass/Vol]8.4 mg/dLLow8.5-10.5PSelect Medical TriHealth Rehabilitation HospitalComment on above:Performed By: #### CMP #### [facility] ([address] [place] [address] VIRChloride [Moles/Vol]101 mmol/QAfadnz62-181AryQqvvsdChristus Spohn Hospital Corpus Christi – SouthComment on above:Performed By: #### CMP #### [facility] ([address] [place] [address] VIRCO2 [Moles/Vol]34 mmol/MJvae04-68AevDcsuklSelect Medical TriHealth Rehabilitation Hospital Comment on above:Performed By: #### CMP #### [facility] ([address] [place] [address] VIRCreatinine [Mass/Vol]1.39 mg/dLHigh0.40-1.00ProChristus Spohn Hospital Corpus Christi – SouthComment on above:Result Comment: METHOD TRACEABLE TO IDMS STANDARDPerformed By: #### CMP #### [facility] ([address] [place] [address] VIRGFR/1.73 sq M.predicted among non-blacks MDRD (S/P/Bld) [Vol rate/Area]43 mL/min/{1.73_m2}Low>=60ProChristus Spohn Hospital Corpus Christi – SouthComment on above:Result Comment: eGFR not reported due to non-numeric value for Creatinine. Reported eGFR is based on the CKD-EPI 2021 equation that does not use a race coefficient.Performed By: #### CMP #### [facility] ([address] [place] [address] VIRGlucose [Mass/Vol]130 mg/sZSawz43-92PfjDaoiifChristus Spohn Hospital Corpus Christi – SouthComment on above:Performed By: #### CMP #### [facility] ([address] [place] [address] VIRPotassium [Moles/Vol]3.5 mmol/LNormal3.5-5.0ProChristus Spohn Hospital Corpus Christi – SouthComment on above:Performed By: #### CMP #### [facility] ([address] [address] VIRProtein [Mass/Vol]7.7 g/dLNormal6.0-8.0ProChristus Spohn Hospital Corpus Christi – SouthComment on above:Performed By: #### CMP #### [facility] ([address] [place] [address] VIRSodium [Moles/Vol]140 mmol/GPallyw136-923GtvOvwoec Fremont HospitalComment on above:Performed By: #### CMP #### [facility] ([address] [address] VIRUrea nitrogen [Mass/Vol]16 mg/dLNormal5-27ProChristus Spohn Hospital Corpus Christi – SouthComment on above:Performed By: #### CMP #### [facility] ([address] [address] VIRCT CTA CHESTon 20-40-8109BR CTA CHESTCT CTA CHEST Clinical history: Hypoxia Technique: CT [...] main pulmonary arteries. The secondary to shear branchesare insufficiently opacified for full evaluation * Diffuse right-sided infiltrate * Hiatal hernia All CT scans at this facility use dose modulation, iterative reconstruction, and/or weight based dosing when appropriate to reduce radiation dose to as low as reasonably achievable . Finalized by Kai Finn MD on 12/03/2024 4:[address] Hospitalca [facility] Presbyterian HospitalLACTATE W/ REFLEXon [id number] W/REFLEX0.8 mmol/LNormal0.4-2.0 [facility] - YoungstownComment on above:Order Comment: Result did not trigger repeat Lactate, re-order if needed.Performed By: #### LACTS #### [facility] ([address] [address] VIRTROP I, HIGH SENSITIVITY 1 HOURon [id number] I, HIGH SENSITIVITY7 ng/LNormal<16ProChristus Spohn Hospital Corpus Christi – SouthComment on above: Performed By: #### [email or web address] ####[facility] ([address] [address] VIRTROPONIN I, HIGH SENSITIVITY 0 HOURon 12-03-2024 TROPONIN I, HIGH SENSITIVITY8 ng/LNormal<16[facility] YoungstownComformerly [facility] on above:Performed By: #### TNIHS0 #### [facility] ([address] [address] VIRXR CHEST 1 VWon 27-45-0718KT CHEST 1 VWXR CHEST 1 VW XR CHEST 1 VW [...] left lower lung field could represent calcified granuloma,calcified fat necrosis in the breast, or overlying object external to patient. Clinical correlationrecommended. Approved by Resident Shashi Garsia MD on 12/03/2024 3:21 AM I, Kai Finn MD have personally reviewed the image(s) and agree with and/or edited the report Finalized by Kai Finn MD on 12/03/2024 3:36 AMNormalSelect Medical Specialty Hospital - YoungstownBASIC METABOLIC PANELon 02-41-5628Mytkn gap [Moles/Vol]8 mmol/LNormal 5-15[facility] Hospital - YoungstownComment on above:Performed By: #### BMP #### [facility] ([facility]) [address] [place] [address] VIRCalcium [Mass/Vol]9.0 mg/dLNormal8.5-10.5PSelect Medical TriHealth Rehabilitation HospitalComment on above:Performed By: #### BMP #### [facility] ([facility]) [address] [place] [address] VIRChloride [Moles/Vol]103 mmol/AArrwws15-095AhqRaahxwChristus Spohn Hospital Corpus Christi – SouthComment on above:Performed By: #### BMP #### [facility] ([facility]) [address] [place] [address] VIRCO2 [Moles/Vol]29 mmol/BQvbzcs32-75QpcXgmgzqSelect Medical TriHealth Rehabilitation HospitalComment on above:Performed By: #### BMP #### [facility] ([facility]) [address] [place] [address] VIRCreatinine [Mass/Vol]1.15 mg/dLHigh0.40-1.00ProChristus Spohn Hospital Corpus Christi – SouthComment on above:Result Comment: METHOD TRACEABLE TO IDMS STANDARDPerformed By: #### BMP #### [facility] ([facility]) [address] [place] [address] VIRGFR/1.73 sq M.predicted among non-blacks MDRD (S/P/Bld) [Vol rate/Area]54 mL/min/{1.73_m2}Low>=60ProChristus Spohn Hospital Corpus Christi – SouthComment on above: Result Comment: Reported eGFR is based on the CKD-EPI 2020 equation that does not use a race coefficient.Performed By: #### BMP #### [facility] ([facility]) [address] [place] [address] VIRGlucose [Mass/Vol]83 mg/yHVmhwif62-79QvnDvjcrkChristus Spohn Hospital Corpus Christi – SouthComment on above:Performed By: #### BMP #### [facility] ([facility]) [address] [place] [address] VIRPotassium [Moles/Vol]4.1 mmol/LNormal3.5-5.0[facility] Hospital - YoungstownComment on above:Performed By: #### BMP #### [facility] ([facility]) [address] [place] [address] VIRSodium [Moles/Vol]140 mmol/QTsnhzf910-237NweOionaq [facility]remont HospitalComment on above:Performed By: #### BMP #### [facility] ([facility]) [address] [place] [address] VIRUrea nitrogen [Mass/Vol]15 mg/dLNormal5-27ProChristus Spohn Hospital Corpus Christi – SouthComment on above:Performed By: #### BMP #### [facility] ([facility]) [address] [place] [address] VIRXR KNEE RT 3 VWSon 80-05-1139IX KNEE RT 3 VWSXR KNEE RT 3 VWS History: Patellar tendinitis [...] by Kai Finn MD on 11/29/2024 2:28 PMNormalProBaylor Scott & [facility] WITH AUTO DIFFERENTIALon 28-48-4996Vsle form neutrophils/100 WBC (Bld)4 %[facility] PPGComment on above:Result Comment: This is an appended report. These results have been appended to a previously preliminary verified report.Performed By: #### CBCA #### [facility] ([facility]) [address] [place] [address] VIRCELLAVISION BASOPHILS ABSOLUTE COUNT (10*3/UL) BY MANUAL COUNT0.1 10*3/uLNormal0.0-0.2POur [facility] of [facility] Ambulatory PPGComment on above: Result Comment: This is an appended report. These results have been appended to a previously preliminary verified report.Performed By: #### CBCA #### [facility] ([facility]) [address] [place] [address] VIRCELLAVISION BASOPHILS RELATIVE PERCENT BY MANUAL COUNT1 % [facility] PPGComment on above:Result Comment: This is an appended report. These results have been appended to a previously preliminary verified report.Performed By: #### CBCA #### [facility] ([facility]) [address] [place] [address] VIRCELLAVISION DIFFERENTIAL TYPECELLAVISION DIFFERENTIALNormal [facility] PPGComment on above:Result Comment: This is an appended report. These results have been appended to a previously preliminary verified report.Performed By: #### CBCA #### [facility] ([facility]) [address] [place] [address] VIRCELLAVISION EOSINOPHILS ABSOLUTE COUNT (10*3/UL) BY MANUAL COUNT0.2 10*3/uLNormal0.0-0.4[facility] PPGComment on above: Result Comment: This is an appended report. These results have been appended to a previously preliminary verified report.Performed By: #### CBCA #### [facility] ([facility]) [address] [place] [address] VIRCELLAVISION EOSINOPHILS PERCENT BY MANUAL COUNT2 %Normal [facility] PPGComment on above:Result Comment: This is an appended report. These results have been appended to a previously preliminary verified report.Performed By: #### CBCA #### [facility] ([facility]) [address] [place] [address] VIRCELLAVISION LYMPHOCYTES ABSOLUTE COUNT (10*3/UL) BY MANUAL COUNT1.9 10*3/uLNormal1.0-3.5POur [facility] Ambulatory PPGComment on above: Result Comment: This is an appended report. These results have been appended to a previously preliminary verified report.Performed By: #### CBCA #### [facility] ([facility]) [address] [place] [address] VIRCELLAVISION LYMPHOCYTES RELATIVE PERCENT BY MANUAL COUNT21 % [facility] PPGComment on above:Result Comment: This is an appended report. These results have been appended to a previously preliminary verified report.Performed By: #### CBCA #### [facility] ([facility]) [address] [place] [address] VIRCELLAVISION MONOCYTES ABSOLUTE COUNT (10*3/UL) IN BLOOD BY MANUAL COUNT0.2 10*3/uLNormal0.0-0.9[facility] PPGComment on above:Result Comment: This is an appended report. These results have been appended to a previously preliminary verified report.Performed By: #### CBCA #### [facility] ([facility]) [address] [place] [address] VIRCELLAVISION MONOCYTES RELATIVE PERCENT BY MANUAL COUNT2 % [facility]ulatory PPGComment on above:Result Comment: This is an appended report. These results have been appended to a previously preliminary verified report.Performed By: #### CBCA #### [facility] ([facility]) [address] [place] [address] VIRCELLAVISION NEUTROPHILS ABSOLUTE COUNT BY MANUAL COUNT6.8 10*3/uLHigh1.5-6.6[facility] PPGComment on above:Result Comment: This is an appended report. These results have been appended to a previously preliminary verified report.Performed By: #### CBCA #### [facility] ([facility]) [address] [place] [address] VIRCELLAVISION NEUTROPHILS RELATIVE PERCENT BY MANUAL COUNT70 % NormalFairfield Medical Center Ambulatory PPGComment on above:Result Comment: This is an appended report. These results have been appended to a previously preliminary verified report.Performed By: #### CBCA #### [facility] ([facility]) [address] [place] [address] VIRCELLAVISION RBC MORPHOLOGYReviewedNormalFairfield Medical Center Ambulatory PPGComment on above:Result Comment: This is an appended report. These results have been appended to a previously preliminary verified report. Performed By: #### CBCA #### [facility] ([facility]) [address] [place] [address] VIRErythrocyte distribution width (RBC) [Ratio]20.4 %High 11.5-15[facility] PPGComment on above:Performed By: #### CBCA #### [facility] ([facility]) [address] [place] [address] VIRHematocrit (Bld) [Volume fraction]32.9 %Nps17-14IvmAmfsbfFairfield Medical Center Ambulatory PPGComment on above:Performed By: #### CBCA #### [facility] ([facility]) [address] [place] [address] VIRHemoglobin (Bld) [Mass/Vol]10.0 g/dLLow11.7-15.5POur [facility]ulatory PPGComment on above:Performed By: #### CBCA #### [facility] ([facility]) [address] [place] [address] VIRMCH (RBC) [Entitic mass]21.2 wsVwd77-82ZtzXrgxgz Hospital Ambulatory PPGComment on above:Performed By: #### CBCA #### [facility] ([facility]) [address] [place] [address] VIRMCHC (RBC) [Mass/Vol]30.4 g/oFPdw14-06AtsPzzmdd Hospital Ambulatory PPGComment on above:Performed By: #### CBCA #### [facility] ([facility]) [address] [place] [address] VIRMCV (RBC) [Entitic vol]70 nGPfh85-009UunWxrdgk Hospital Ambulatory PPGComment on above:Performed By: #### CBCA #### [facility] ([facility]) [address] [place] [address] VIRPlatelet mean volume (Bld) [Entitic vol]8.2 fLNormal7-12 [facility]ulatory PPGComment on above:Performed By: #### CBCA #### [facility] ([facility]) [address] [place] [address] VIRPlatelets (Bld) [#/Vol]334 10*3/vKRgcmpy996-608YqbDktmpd Hospital Ambulatory PPGComment on above:Performed By: #### CBCA #### [facility] ([facility]) [address] [place] [address] VIRRBC COUNT4.73 X10E12/LNormal3.8-5.2POur [facility] Ambulatory PPGComment on above:Performed By: #### CBCA #### [facility] ([facility] [facility]) [address] [place] [address] VIRWBC (Bld) [#/Vol]9.1 10*3/uLNormal4-11[facility] Ambulatory PPGComment on above:Performed By: #### CBCA #### [facility] ([facility]) [address] [place] [address] VIRCBC auto differentialon [id number] form neutrophils/100 WBC (Bld)4 %[facility] SystemComment on above:This is an appended report. These results have been appended to a previously preliminary verified report. Basophils (Bld) [#/Vol]0.1 10*3/uL0.0 - 0.2 10*3/uLSelect [facility]ty [facility] Comment on above:This is an appended report. These results have been appended to a previously preliminary verified report.Basophils/100 WBC (Bld)1 %[facility] CincinnatiComment on above:This is an appended report. These results have been appended to a previously preliminary verified report.Differential cell count method Nom (Bld)CELLAVISION DIFFERENTIALSelect Medical Specialty Hospital - CincinnatiComment on above:This is an appended report. These results have been appended to a previously preliminary verified report.Eosinophils (Bld) [#/Vol]0.2 10*3/uL0.0 - 0.4 10*3/uLSelect Medical Specialty Hospital - CincinnatiComment on above:This is an appended report. These results have been appended to a previously preliminary verified report. Eosinophils/100 WBC (Bld)2 %[facility] CincinnatiComment on above:This is an appended report. These results have been appended to a previously preliminary verified report.Erythrocyte distribution width (RBC) [Ratio]20.4 %High11.5 - 15 %[facility] CincinnatiHematocrit (Bld) [Volume fraction]32.9 %Low35 - 47 % [facility] CincinnatiHemoglobin (Bld) [Mass/Vol]10 g/dLLow11.7 - 15.5 g/dL [facility] CincinnatiInterpretation and review of laboratory resultsAbnormal [facility] CincinnatiLymphocytes (Bld) [#/Vol]1.9 10*3/uL1.0 - 3.5 10*3/uL [facility] CincinnatiComment on above:This is an appended report. These results have been appended to a previously preliminary verified report.MCH (RBC) [Entitic mass]21.2 pgLow27 - 34 [facility] HospitalMCHC (RBC) [Mass/Vol] 30.4 g/dLLow32 - 36 g/dLSelect Medical Specialty Hospital - CincinnatiMCV (RBC) [Entitic vol]70 fLLow80 - 100 [facility] HealthMonocytes (Bld) [#/Vol]0.2 10*3/uL0.0 - 0.9 10*3/uLAkron Children's Hospital SystemComment on above:This is an appended report. These results have been appended to a previously preliminary verified report. Monocytes/100 WBC (Bld)2 %[facility] SystemComment on above:This is an appended report. These results have been appended to a previously preliminary verified report.Neutrophils (Bld) [#/Vol]6.8 10*3/uLHigh1.5 - 6.6 10*3/uL [facility] SystemComment on above:This is an appended report. These results have been appended to a previously preliminary verified report. Neutrophils/100 WBC (Bld)70 %[facility] SystemComment on above:This is an appended report. These results have been appended to a previously preliminary verified report.Platelet mean volume (Bld) [Entitic vol]8.2 fL7 - 12 [facility] SystemPlatelets (Bld) [#/Vol]334 10*3/uLAkron Children's Hospital SystemRBC (Bld) [#/Vol]4.73 10*6/[facility] SystemRBC (Bld) [#/Vol]ReviewedAkron Children's Hospital SystemComment on above:This is an appended report. These results have been appended to a previously preliminary verified report.Variant lymphocytes/100 WBC (Bld)21 %[facility] CincinnatiComment on above:This is an appended report. These results have been appended to a previously preliminary verified report.WBC LM Ql (Sput)9.1PMoses Taylor HospitalCOMPREHENSIVE METABOLIC PANELon [id number] [Mass/Vol]4.4 g/dLNormal 3.2-5.3POur [facility] Ambulatory PPGComment on above:Performed By: #### CMP #### [facility] ([facility]) [address] [place] [address] VIRALP [Catalytic activity/Vol]100 U/TJeshwq33-754CmcXslrhw Hospital Ambulatory PPGComment on above:Performed By: #### CMP #### [facility] ([facility]) [address] [place] [address] VIRALT [Catalytic activity/Vol]33 U/LHigh<=31PO[facility] Ambulatory PPGComment on above:Performed By: #### CMP #### [facility] ([facility]) [address] [place] [address] VIRAnion gap [Moles/Vol]7 mmol/LNormal5-15[facility] Ambulatory PPGComment on above:Performed By: #### CMP #### [facility] ([facility]) [address] [place] [address] VIRAST [Catalytic activity/Vol]22 U/LNormal<=41[facility] Ambulatory PPGComment on above:Performed By: #### CMP #### [facility] ([facility]) [address] [place] [address] VIRBilirubin [Mass/Vol]0.3 mg/dLNormal0.3-1.2PO[facility] Ambulatory PPGComment on above:Performed By: #### CMP #### [facility] ([facility]) [address] [place] [address] VIRCalcium [Mass/Vol]9.3 mg/dLNormal8.5-10.5PO[facility] Ambulatory PPGComment on above:Performed By: #### CMP #### [facility] ([facility]) [address] [place] [address] VIRChloride [Moles/Vol]102 mmol/IGoczxx86-827NqiIlhkwj Hospital Ambulatory PPGComment on above:Performed By: #### CMP #### [facility] ([facility]) [address] [place] [address] VIRCO2 [Moles/Vol]34 mmol/DAkax95-86EmgPulgfx Hospital Ambulatory PPGComment on above:Performed By: #### CMP #### [facility] ([facility]) [address] [place] [address] VIRCreatinine [Mass/Vol]1.27 mg/dLHigh0.40-1.00[facility] Ambulatory PPGComment on above:Result Comment: METHOD TRACEABLE TO IDMS STANDARDPerformed By: #### CMP #### [facility] ([facility]) [address] [place] [address] VIRGFR/1.73 sq M.predicted among non-blacks MDRD (S/P/Bld) [Vol rate/Area]48 mL/min/{1.73_m2}Low>=60ProSum[facility] Ambulatory PPGComment on above:Result Comment: Reported eGFR is based on the CKD-EPI 2020 equation that does not use a race coefficient.Performed By: #### CMP #### [facility] ([facility]) [address] [place] [address] VIRGlucose [Mass/Vol]114 mg/zAHklh45-16WqrKzynxc Hospital Ambulatory PPGComment on above:Performed By: #### CMP #### [facility] ([facility]) [address] [place] [address] VIRPotassium [Moles/Vol]4.4 mmol/LNormal3.5-5.0[facility] Ambulatory PPGComment on above:Performed By: #### CMP #### [facility] ([facility]) [address] [place] [address] VIRProtein [Mass/Vol]7.6 g/dLNormal6.0-8.0[facility] Ambulatory PPGComment on above:Performed By: #### CMP #### [facility] ([facility]) [address] [place] [address] VIRSodium [Moles/Vol]143 mmol/TBfpcbx580-952VhbOivzdr Hospital Ambulatory PPGComment on above:Performed By: #### CMP #### [facility] ([facility]) [address] [place] [address] VIRUrea nitrogen [Mass/Vol]19 mg/dLNormal5-27[facility] Ambulatory PPGComment on above:Performed By: #### CMP #### [facility] ([facility]) [address] [place] [address] VIRComprehensive metabolic panelon 06-08-0350Oqjtwao [Mass/Vol] 4.4 g/dL3.2 - 5.3 g/dLProSalem City Hospital SystemALP [Catalytic activity/Vol]100 U/L 39 - 130 U/LPrPresbyterian/St. Luke's Medical Center Health SystemALT No additional P-5'-P [Catalytic activity/Vol]33 U/LHighNINF - 31 U/[facility] SystemAnion gap [Moles/Vol] 7 mmol/L5 - 15 mmol/LPrPresbyterian/St. Luke's Medical Center Health SystemAST [Catalytic activity/Vol]22 U/L NINF - 41 U/[facility] SystemBilirubin [Mass/Vol]0.3 mg/dL0.3 - 1.2 mg/dL [facility] CincinnatiCalcium [Mass/Vol]9.3 mg/dL8.5 - 10.5 mg/dLSelect Medical Specialty Hospital - CincinnatiChloride [Moles/Vol]102 mmol/L98 - 109 mmol/[facility] SystemCO2 [Moles/Vol]34 mmol/LHigh22 - 32 mmol/[facility] Creatinine [Mass/Vol]1.27 mg/dLHigh0.40 - 1.00 mg/dLSelect [facility] Comment on above:METHOD TRACEABLE TO [facility]EX [facility] STANDARDEGFR Non-Race Olpiyrqdl[address] [place], [place] [address]Comment on above:Reported eGFR is based on the CKD-EPI 2020 equation that does not use a race coefficient. Glucose [Mass/Vol]114 mg/kAOqjw43 - 99 mg/dLSelect Medical Specialty [facility] [place] Interpretation and review of laboratory resultsAbnoCritical access hospital Potassium [Moles/Vol]4.4 mmol/L3.5 - 5.0 mmol/LPrPresbyterian/St. [facility]'s [facility] Center Health SystemProtein [Mass/Vol]7.6 g/dL6.0 - 8.0 g/dLCritical access hospitalodium [Moles/Vol]143 mmol/L134 - 146 mmol/[facility] SystemUrea nitrogen [Mass/Vol]19 mg/dL5 - 27 mg/dLWellSpan Good Samaritan HospitalHEMOGLOBIN A1Con 49-81-9058Urofzpl [Mass/Vol]134 mg/dLUkiah Valley Medical Center Ambulatory PPG Comment on above:Performed By: #### HA1C #### [facility] ([facility]) [address] [place] [address] XNSSeE1l (Bld) [Mass fraction]6.3 %High4.4-5.6[facility] Ambulatory PPGComment on above:Result Comment: ADA Guidelines Result HgbA1c Normal : less than 5.7 % Prediabetes : 5.7 % to 6.4 % Diabetes : > 6.4 % Use with caution in patients with abnormal hemoglobin variants as the half-life of red blood cells and in vivo glycation rates are affected.Performed By: #### HA1C #### [facility] ([facility]) [address] [place] [address] VIRCBC AND AUTO DIFFon 09-72-9173NRQSHAND BASOPHIL0.1 X10E9/L Normal0.0-0.2[facility] HospitalComment on above:Performed By: #### KAIDEN 2131-12, KEKE, CBCA #### [facility] ([id number]) [address] [place], [place] [address]WRCUOJUN NEUTROPHIL7.1 X10E9/LHigh1.5-6.6ProOhiohealth Van Wert HospitalComment on above:Performed By: #### KAIDEN 2131-12, BMP, CBCA #### [facility] ([id number]) [address] [place], [place] [address]Rizrrvjrl/100 WBC (Bld)0.6 %NormalProMedica Flower Hospital Comment on above:Performed By: #### KAIDEN 2131-12, BMP, CBCA #### [facility] ([id number]) [address] [place], [place] [address]Nnbqkwzrfac (Bld) [#/Vol]0.1 10*3/uLNormal0.0-0.4[facility] HospitalComment on above:Performed By: #### KAIDEN 2131-12, BMP, CBCA #### [facility] ([id number]) [address] [place], [place] [address]Majxcsynjoh/100 WBC (Bld)1.0 %NormalProRiverview Health Institute Hospital Comment on above:Performed By: #### KAIDEN 2131-12, BMP, CBCA #### [facility] ([id number]) [address] [place], [place] [address]Uoewgbwwbzl distribution width (RBC) [Ratio]20.7 %High11.5-15.0 [facility] HospitalComment on above:Performed By: #### KAIDEN 2131-12, BMP, CBCA #### [facility] ([id number]) [address] [place], [place] [address]Yxhcoridlp (Bld) [Volume fraction]37.2 %Lydyrd37-50RlfBmlybb [place] HospitalComment on above:Performed By: #### KAIDEN 2131-12, BMP, CBCA #### [facility] ([id number]) [address] [address] [place], [place] [address]Qvznzqqgna (Bld) [Mass/Vol]11.7 g/yZZkiemj60.7-15.5[facility] HospitalComment on above:Performed By: #### KAIDEN 2131-12, BMP, CBCA #### [facility] ([id number]) [address] [place], [place] [address]Ezodrcowjxr (Bld) [#/Vol]1.6 10*3/uLNormal1.0-3.5ProMedGrand Lake Joint Township District Memorial Hospital HospitalComment on above:Performed By: #### KAIDEN 2131-12, BMP, CBCA #### [facility] ([id number]) [address] [place], [place] [address]Ayldsvkebws/100 WBC (Bld)17.6 %[facility] Comment on above:Performed By: #### KAIDEN 2131-12, BMP, CBCA #### [facility] ([id number]) [address] [place], [place] [address]MZU (RBC) [Entitic mass]23.0 huHzd32-08VqqHsfamzProMedica Flower Hospital Comment on above:Performed By: #### THYDasha, 2131-12, BMP, CBCA #### [facility] ([id number]) [address] [place], [place] [address]HOLJ (RBC) [Mass/Vol]31.4 g/rAQxm26-54ZghKkggywProMedica [facility]lower Hospital Comment on above:Performed By: #### KAIDEN 2131-12, BMP, CBCA #### [facility] ([id number]) [address] [place], [place] [address]STT (RBC) [Entitic vol]73 qZCqx20-982NvoLyiouvProMedica [facility]lower Hospital Comment on above:Performed By: #### KAIDEN 2131-12, BMP, CBCA #### [facility] ([id number]) [address] [place], [place] [address]Qgxcmjqwu (Bld) [#/Vol]0.4 10*3/uLNormal0-0.9Pro[facility] HospitalComment on above:Performed By: #### THYR, 2131-12, BMP, CBCA #### [facility] ([id number]) [address] [place], [place] [address]Azckdvjwd/100 WBC (Bld)4.2 %[facility] Comment on above:Performed By: #### THYDasha, 2131-12, BMP, CBCA #### [facility] ([id number]) [address] [place], [place] [address]Lssgbwkertw/100 WBC (Bld)76.6 %NormalProMedica Flower Hospital Comment on above:Performed By: #### KAIDEN 2131-12, BMP, CBCA #### [facility] ([id number]) [address] [place], [place] [address]Auzuigax mean volume (Bld) [Entitic vol]8.2 fLNormal7-12 [facility] HospitalComment on above:Performed By: #### KAIDEN 2131-12, BMP, CBCA #### [facility] ([id number]) [address] [place], [place] [address]Bgivdinah (Bld) [#/Vol]396 10*3/cTKzogsz573-505HqxGuzmde [place] HospitalComment on above:Performed By: #### KAIDEN 2131-12, BMP, CBCA #### [facility] ([id number]) [address] [place], [place] [address]ZXS COUNT5.09 X10E12/LNormal3.80-5.20[facility] Comment on above:Performed By: #### KAIDEN 2131-12, BMP, CBCA #### [facility] ([id number]) [address] [place], [place] [address]LPX (Bld) [#/Vol]9.3 10*3/uLNormal4.0-11.0ProRiverview Health Institute HospitalComment on above:Performed By: #### KAIDEN 2131-12, BMP, CBCA #### [facility] ([id number]) [address] [place], [place] [address]DBYJJVTDAJHLJ METABOLIC PANELon 01-81-3885Sfkzgvk [Mass/Vol]4.1 g/dLNormal3.2-5.3[facility] HospitalComment on above:Performed By: #### KAIDEN 2131-12, BMP, CBCA #### [facility] ([id number]) [address] [place], [place] [address]GFO [Catalytic activity/Vol]106 U/RZwqdou04-669QqoGdjoft Miller HospitalComment on above:Performed By: #### KAIDEN 2131-12, BMP, CBCA #### [facility] ([id number]) [address] [place], [place] [address]EWN [Catalytic activity/Vol]30 U/LNormal0-31[facility] HospitalComment on above:Performed By: #### KAIDEN 2131-12, BMP, CBCA #### [facility] ([id number]) [address] [place], [place] [address]Osjsq gap [Moles/Vol]10 mmol/LNormal5-15[facility] HospitalComment on above:Performed By: #### KAIDEN 2131-12, BMP, CBCA #### [facility] ([id number]) [address] [place], [place] [address]SHN [Catalytic activity/Vol]30 U/LNormal0-41[facility] HospitalComment on above:Performed By: #### KAIDEN 2131-12, BMP, CBCA #### [facility] ([id number]) [address] [place], [place] [address]Rvprrwuyn [Mass/Vol]0.3 mg/dLNormal0.3-1.2[facility] HospitalComment on above:Performed By: #### KAIDEN 2131-12, BMP, CBCA #### [facility] ([id number]) [address] [place], [place] [address]Ndjzwno [Mass/Vol]9.6 mg/dLNormal8.5-10.5[facility] HospitalComment on above:Performed By: #### KAIDEN 2131-12, BMP, CBCA #### [facility] ([id number]) [address] [place], [place] [address]Ermrjpdl [Moles/Vol]105 mmol/OMrkprz41-455SxdPplgmm [place] HospitalComment on above:Performed By: #### KAIDEN 2131-12, KEKE, CBCA #### [facility] ([id number]) [address] [place], [place] [address]IZ6 [Moles/Vol]25 mmol/LLlzvpa46-85QxaXqhaawSt. John of God Hospital Comment on above:Performed By: #### KAIDEN 2131-12, KEKE, CBCA #### [facility] ([id number]) [address] [place], [place] [address]Tqwiumthkr [Mass/Vol]1.14 mg/dLHigh0.40-1.00ProOhiohealth Van Wert HospitalComment on above:Result Comment: METHOD TRACEABLE TO IDMS STANDARD Performed By: #### KAIDEN 2131-12, KEKE, CBCA #### [facility] ([id number]) [address] [place], [place] [address]VBC/1.73 sq M.predicted among non-blacks MDRD (S/P/Bld) [Vol rate/Area]54 mL/min/{1.73_m2}Low>59ProOhiohealth Van Wert HospitalComment on above: Result Comment: Reported eGFR is based on the CKD-EPI 2020 equation that does not use a race coefficient.Performed By: #### KAIDEN 2131-12, KEKE, CBCA #### [facility] ([id number]) [address] [place], [place] [address]Jtikphz [Mass/Vol]144 mg/vXRzyn56-74CxgOtpzmpProMedica [facility] Hospital Comment on above:Performed By: #### KAIDEN 2131-12, KEKE, CBCA #### [facility] ([id number]) [address] [place], [place] [address]Fxdhhgcbx [Moles/Vol]3.9 mmol/LNormal3.5-5.0ProRiverview Health Institute HospitalComment on above:Performed By: #### KAIDEN 2131-12, KEKE, CBCA #### [facility] ([id number]) [address] [place], [place] [address]Jehskvw [Mass/Vol]7.5 g/dLNormal6.0-8.0ProRiverview Health Institute Hospital Comment on above:Performed By: #### KAIDEN 2131-12, KEKE, CBCA #### [facility] ([id number]) [address] [facility] [address] [place], [place] [address]Mgecfz [Moles/Vol]140 mmol/LDcesca501-739BkrFvylcq [place] HospitalComment on above:Performed By: #### KAIDEN 2131-12, KEKE, CBCA #### [facility] ([id number]) [address] [place], [place] [address]Wpkq nitrogen [Mass/Vol]11 mg/dLNormal5-27ProRiverview Health Institute HospitalComment on above:Performed By: #### KIADEN 2131-12, KEKE, CBCA #### [facility] ([id number]) [address] [place], [place] [address]RBO A1C (GLYCO-HGB)on 97-89-2610Ayxlgrl [Mass/Vol]140 mg/dL NormalProRiverview Health Institute HospitalComment on above:Performed By: #### KAIDEN 2131-12, KEKE, CBCA #### [facility] ([id number]) [address], [facility] [address] [place], [place] [address]ZiA0y (Bld) [Mass fraction]6.5 %High4.4-5.6ProRiverview Health Institute HospitalComment on above:Result Comment: NOTE ADA Guidelines Result HgbA1c Normal : less than 5.7 % Prediabetes : 5.7 % to 6.4 % Diabetes : > 6.4 % Use with caution in patients with abnormal hemoglobin variants as the half-life of red blood cells and in vivo glycation rates are affected.Performed By: #### KAIDEN 2131-12KEKE CBCA #### [facility] ([id number]) [address] [place], [place] [address]Grrbb 1996 panelon 59-41-1721Vlaxwxruddx [Mass/Vol]188 mg/dL Hvosel097-658FuhEfsrme [place] HospitalComment on above:Performed By: Daniel RICHEY 2131-12, ANNA DAVIES #### [facility] ([id number]) [address] [place], [place] [address]Fzzcqhpeaps in HDL [Mass/Vol]33 mg/dLLow>39ProOhiohealth Van Wert HospitalComment on above:Result Comment: HDL <40 mg/dL - High Risk HDL > or = 40mg/dL- Desirable HDL >60 mg/dL - Negative Risk Performed By: #Kyler RICHEY, 2131-12, KEKE, CBCA #### [facility] ([id number]) [address] [place], [place] [address]Fbiyjugydhu in LDL [Mass/Vol]118 mg/dLNormal<130ProOhiohealth Van Wert HospitalComment on above:Result Comment: LDL <100 mg/dL - Desirable LDL >160 mg/dL - High Risk Performed By: ###Fabi RICHEY, 2131-12, KEKE, CBCA #### [facility] ([id number]) [address] [place], [place] [address]Knkichdvcjj in VLDL [Mass/Vol]37 mg/dLHigh0-30[facility] HospitalComment on above:Performed By: #### KAIDEN 2131-12, BMP, CBCA #### [facility] ([id number]) [address] [place], [place] [address]TCPIECRSQME:HDL5.7High1.0-5.0Pro[facility] HospitalComment on above:Performed By: #### KAIDEN, 2131-12, BMP, CBCA #### [facility] ([id number]) [address] [place], [place] [address]Glfrzbfpyexa [Mass/Vol]185 mg/iFTkbu42-420DzvCzlbmp [place] HospitalComment on above:Performed By: #### KAIDEN 2131-12, BMP, CBCA #### [facility] ([id number]) [address] [place], [place] [address]OJBTOHW B12on [id number] (Vitamin B12) [Mass/Vol]1244 pg/pSPhaq237-291IzbEtykjc [place] HospitalComment on above:Performed By: #### KAIDEN, 2131-12, BMP, CBCA #### [facility] ([id number]) [address], [address] [place], [place] [address]DPV AND AUTO DIFFon [id number] BASOPHIL0.1 X10E9/LNormal 0.0-0.2[facility] HospitalComment on above:Performed By: #### XENIA, 2571-8, HA1C, 2088-04, CBCA #### [facility] ([id number]) [address], [address] [place], [place] [address]EQDVOVGV NEUTROPHIL8.1 X10E9/LHigh1.5-6.6Pro[address] Hospitalca [facility] [place] HospitalComment on above:Performed By: #### XENIA, 257-8, 2088-04, CBCA #### [facility] ([id number]) [address], [address] [place], [place] [address]Iaeuclhev/100 WBC (Bld)0.7 %NormalProMedica [facility]lower Hospital Comment on above:Performed By: #### XENIA, 2570-11, , 2088-04, CBCA #### [facility] ([id number]) [address], [address] [place], [place] [address]Zhmqrawbiyc (Bld) [#/Vol]0.2 10*3/uLNormal0.0-0.4ProOhiohealth Van Wert HospitalComment on above:Performed By: #### XENIA, 2570-11, , 2088-04, CBCA #### [facility] ([id number]) [address], [address] [place], [place] [address]Wabfyzhsndq/100 WBC (Bld)1.4 %NormalProMedica Flower Hospital Comment on above:Performed By: #### XENIA, 2570-11, , 2088-04, CBCA #### [facility] ([id number]) [address], [address] [place], [place] [address]Zjtgauooimw distribution width (RBC) [Ratio]19.2 %High11.5-15.0 [facility]rbana HospitalComment on above:Performed By: #### XENIA, 2570-11, , 2088-04, CBCA #### [facility] ([id number]) [address], [address] [place], [place] [address]Fexaxypbap (Bld) [Volume fraction]31.0 %Fmg36-17UuvMlaqrsOhiohealth Van Wert HospitalComment on above:Performed By: #### XENIA, 2570-11, , 2088-04, CBCA #### [facility] ([id number]) [address], [address] [place], [place] [address]Udxtsrcswx (Bld) [Mass/Vol]9.2 g/dLLow11.7-15.5PSt. John of God HospitalComment on above:Performed By: #### XENIA, 2570-11, HA, 2088-04, CBCA #### [facility] ([id number]) [address], [address] [place], [place] [address]Aqepotwfagp (Bld) [#/Vol]2.2 10*3/uLNormal1.0-3.5PSt. John of God HospitalComment on above:Performed By: #### XENIA, 2570-8, HAMagaly, 2088-04, CBCA #### [facility] ([id number]) [address], [address] [place], [place] [address]Qgpitiaekcn/100 WBC (Bld)19.8 %NormalProMedica Flower Hospital Comment on above:Performed By: #### XENIA, 2570-11, , 2088-04, CBCA #### [facility] ([id number]) [address], [address] [place], [place] [address]TFM (RBC) [Entitic mass]21.8 geMum13-27RsqTpfvmsProMedica Flower Hospital Comment on above:Performed By: #### XENIA, 2570-11, , 2088-04, CBCA #### [facility] ([id number]) [address], [address] [place], [place] [address]OXXQ (RBC) [Mass/Vol]29.8 g/kMLmi19-58WrvMqgfzgProMedica Flower Hospital Comment on above:Performed By: #### CMP, 2570-8, HA1C, 2088-04, CBCA #### [facility] ([id number]) [address], [address] [place], [place] [address]QSO (RBC) [Entitic vol]73 lOHix59-168XtyTkyxjbProMedica Flower Hospital Comment on above:Performed By: #### XENIA, 2570-8, HA, 2088-04, CBCA #### [facility] ([id number]) [address], [address] [place], [place] [address]Lcfuokdpw (Bld) [#/Vol]0.4 10*3/uLNormal0-0.9ProWilson [address] Hospitalca Patch Grove HospitalComment on above:Performed By: #### XENIA, 2570-8, HA, 2088-04, CBCA #### [facility] ([id number]) [address], [address] [place], [place] [address]Sdzspvohm/100 WBC (Bld)4.0 %NormalProMedica Flower Hospital Comment on above:Performed By: #### XENIA, 2570-11, , 2088-04, CBCA #### [facility] ([id number]) [address], [address] [place], [place] [address]Jgzjffpjrvl/100 WBC (Bld)74.1 %NormalProMedica Flower Hospital Comment on above:Performed By: #### XENIA, 2570-11, HA, 2088-04, CBCA #### [facility] ([id number]) [address], [address] [place], [place] [address]Lheetzfu mean volume (Bld) [Entitic vol]8.0 fLNormal7-12 [facility] HospitalComment on above:Performed By: #### XENIA, 8, , 2088-04, CBCA #### [facility] ([id number]) [address], [address] [place], [place] [address]Ojcdrmrma (Bld) [#/Vol]412 10*3/oMIafmnu028-380MicLpzruk [facility] [place] HospitalComment on above:Performed By: #### XENIA, 8, HA, 2088-04, CBCA #### [facility] ([id number]) [address], [address] [place], [place] [address]GEN COUNT4.24 X10E12/LNormal3.80-5.20[facility] Comment on above:Performed By: #### CMP, 2571-8, HA1C, 2088-04, CBCA #### [facility] ([id number]) [address], [address] [place], [place] [address]BUC (Bld) [#/Vol]11.0 10*3/uLNormal4.0-11.0ProMedica Flower HospitalComment on above:Performed By: #### CMP, 2571-8, HA1C, 2088-04, CBCA #### [facility] ([id number]) [address], [address] [place], [place] [address]OZU auto differentialon 95-32-9143Qvgcuvqcg (Bld) [#/Vol]0.1 10*3/uLSelect Medical Specialty Hospital - CincinnatiBasophils/100 WBC (Bld)0.7 %[facility] Hospital - CincinnatiEosinophils (Bld) [#/Vol]0.2 10*3/uLSelect Medical Specialty Hospital - CincinnatiEosinophils/100 WBC (Bld)1.4 %[facility] Hospital - CincinnatiErythrocyte distribution width (RBC) [Ratio]19.2 %High11.5 - 15.0 %[facility] Hospital - CincinnatiHematocrit (Bld) [Volume fraction]31 %Low35 - 47 %[facility] Hospital - CincinnatiHemoglobin (Bld) [Mass/Vol]9.2 g/dLLow11.7 - 15.5 g/dLSelect Medical Specialty Hospital - CincinnatiInterpretation and review of laboratory resultsAbnormCleveland Clinic Mercy HospitalLymphocytes (Bld) [#/Vol]2.2 10*3/uLSelect Medical Specialty Hospital - CincinnatiLymphocytes/100 WBC (Bld)19.8 %[facility] Hospital - CincinnatiMCH (RBC) [Entitic mass]21.8 pgLow27 - 34 [facility] HospitalMCHC (RBC) [Mass/Vol]29.8 g/dLLow32 - 36 g/dLSelect Medical Specialty Hospital - CincinnatiMCV (RBC) [Entitic vol]73 fLLow80 - 100 fLProMedica Health SystemMonocytes (Bld) [#/Vol] 0.4 10*3/[facility] Health Medical CenterMonocytes/100 WBC (Bld)4 %[facility] Hospital - CincinnatiNeutrophils (Bld) [#/Vol]8.1 10*3/uLHenrico Doctors' Hospital—[facility] Neutrophils/100 WBC (Bld)74.1 %[facility] Hospital - CincinnatiPlatelet mean volume (Bld) [Entitic vol]8 fL7 - 12 Carondelet HealthPlatelets (Bld) [#/Vol]412 10*3/[facility] SystemRBC (Bld) [#/Vol]4.24 10*6/[facility] Health Medical CenterWBC corrected for nucl RBC Auto (Bld) [#/Vol]11WellSpan York HospitalCOMPREHENSIVE METABOLIC PANELon 33-08-8709Lkqzoev [Mass/Vol]4.0 g/dLNormal3.2-5.3PBerger Hospital HospitalComment on above: Performed By: #### KAIDEN 2131-12, BMP, CBCA #### [facility] ([id number]) [address], [address] [place], [place] [address]NIJ [Catalytic activity/Vol]94 U/ZYtbxve45-507SmaLyeuotProMedica Flower HospitalComment on above:Performed By: #### KAIDEN 2131-12, BMP, CBCA #### [facility] ([id number]) [address], [address] [place], [place] [address]EVL [Catalytic activity/Vol]13 U/LNormal0-31PSt. John of God HospitalComment on above:Performed By: #### THYR, 2131-12, BMP, CBCA #### [facility] ([id number]) [address], [address] [place], [place] [address]Lnbcv gap [Moles/Vol]6 mmol/LNormal5-15[facility] Comment on above:Performed By: #### KAIDEN, 2131-12, BMP, CBCA #### [facility] ([id number]) [address], [address] [place], [place] [address]TQQ [Catalytic activity/Vol]12 U/LNormal0-41[facility] Miller HospitalComment on above:Performed By: #### KAIDEN 2131-12, BMP, CBCA #### [facility] ([id number]) [address], [address] [place], [place] [address]Smoetakkk [Mass/Vol]0.3 mg/dLNormal0.3-1.2Pro[facility]ica Miller HospitalComment on above:Performed By: #### KAIDEN 2131-12, BMP, CBCA #### [facility] ([id number]) [address], [address] [place], [place] [address]Patezvh [Mass/Vol]9.0 mg/dLNormal8.5-10.5ProMedGrand Lake Joint Township District Memorial Hospital HospitalComment on above:Performed By: #### KAIDEN 2131-12, BMP, CBCA #### [facility] ([id number]) [address], [address] [place], [place] [address]Nzfftssw [Moles/Vol]100 mmol/QOeygsx48-731RhrSocczj Miller HospitalComment on above:Performed By: #### KAIDEN 2131-12, BMP, CBCA #### [facility] ([id number]) [address], [address] [place], [place] [address]XI3 [Moles/Vol]32 mmol/EQzqdjc46-14ZrfAgcfau [facility] Comment on above:Performed By: #### KAIDEN 2131-12, BMP, CBCA #### [facility] ([id number]) [address], [address] [place], [place] [address]Davcsjevxc [Mass/Vol]1.26 mg/dLHigh0.40-1.00Pro[facility]ica Miller HospitalComment on above:Result Comment: METHOD TRACEABLE TO IDMS STANDARD Performed By: #### KAIDEN 2131-12, BMP, CBCA #### [facility] ([id number]) [address], [address] [place], [place] [address]UHV/1.73 sq M.predicted among non-blacks MDRD (S/P/Bld) [Vol rate/Area]49 mL/min/{1.73_m2}Low>59ProOhiohealth Van Wert HospitalComment on above: Result Comment: Reported eGFR is based on the CKD-EPI 2020 equation that does not use a race coefficient.Performed By: #### KAIDEN 2131-12, KEKE, CBCA #### [facility] ([id number]) [address], [address] [place], [place] [address]Iosfosn [Mass/Vol]120 mg/gNVtud18-40LvuBrtmwfOhiohealth Van Wert Hospital Comment on above:Performed By: #### KAIDEN 2131-12, KEKE, CBCA #### [facility] ([id number]) [address], [address] [place], [place] [address]Lpugxqexa [Moles/Vol]3.6 mmol/LNormal3.5-5.0ProOhiohealth Van Wert HospitalComment on above:Performed By: #### KAIDEN 2131-12, BMP, CBCA #### [facility] ([id number]) [address], [address] [place], [place] [address]Mkgqkhr [Mass/Vol]7.3 g/dLNormal6.0-8.0[facility] Comment on above:Performed By: #### KAIDEN 2131-12, BMP, CBCA #### [facility] ([id number]) [address], [address] [place], [place] [address]Pidbdy [Moles/Vol]138 mmol/LIfqyan610-522BuiFtqdsx [place] HospitalComment on above:Performed By: #### KAIDEN 2131-12, BMP, CBCA #### [facility] ([id number]) [address], [address] [place], [place] [address]Iimv nitrogen [Mass/Vol]21 mg/dLNormal5-27Pro[facility] HospitalComment on above:Performed By: #### THYR, 2132-9, KEKE, CBCA #### [facility] ([id number]) [address], [address] [place], [place] [address]Hqevdeojullnv metabolic panelon 58-58-7014Iijntbj [Mass/Vol]4 g/dL3.2 - 5.3 g/dLProNorthport Medical Center Health SystemALP [Catalytic activity/Vol]94 U/L39 - 130 U/LProMedica Health SystemALT No additional P-5'-P [Catalytic activity/Vol] 13 U/L0 - 31 U/LPrUniversity Health Truman Medical Centerica Health SystemAnion gap [Moles/Vol]6 mmol/L5 - 15 mmol/LProMedica Health SystemAST [Catalytic activity/Vol]12 U/L0 - 41 U/L [facility] SystemBilirubin [Mass/Vol]0.3 mg/dL0.3 - 1.2 mg/dLProSalem City Hospital SystemCalcium [Mass/Vol]9 mg/dL8.5 - 10.5 mg/dLAkron Children's Hospital System Chloride [Moles/Vol]100 mmol/L98 - 109 mmol/LProMedica Health SystemCO2 [Moles/Vol]32 mmol/L22 - 32 mmol/[facility] Health SystemCreatinine [Mass/Vol] 1.26 mg/dLHigh0.40 - 1.00 mg/dLAkron Children's Hospital SystemComment on above:METHOD TRACEABLE TO MIDDLESEX HOSPITAL STANDARDeGFR (CKD-EPI)non-race hemvkedzk01Zuj- PINCleveland Clinic Akron General SystemComment on above: Reported eGFR is based on the CKD-EPI 202 equation that does not use a race coefficient. Glucose [Mass/Vol]120 mg/jJQlty41 - 99 mg/dLAkron Children's Hospital System Interpretation and review of laboratory resultsAbnormalAkron Children's Hospital System Potassium [Moles/Vol]3.6 mmol/L3.5 - 5.0 mmol/LProMedica Health SystemProtein [Mass/Vol]7.3 g/dL6.0 - 8.0 g/dLProSalem City Hospital SystemSodium [Moles/Vol]138 mmol/L134 - 146 mmol/LProMedica [facility] SystemUrea nitrogen [Mass/Vol]21 mg/dL5 - 27 mg/dLWellSpan Good Samaritan HospitalDIRECT LDLon 03-07-2024 Cholesterol in LDL [Mass/Vol]161 mg/dLHigh<130ProMedica Flower HospitalComformerly [facility] on above:Result Comment: LDL <100 mg/dL - Desirable LDL 130-159 mg/dL - Borderline High Risk LDL >160 mg/dL - High Risk Performed By: #### KAIDEN 2131-12, KEKE, CBCA #### [facility] ([id number]) [address], [address] [place], [place] [address]HDM A1C (GLYCO-HGB)on 95-40-3796Idterzg [Mass/Vol]123 mg/dL NormalProOhiohealth Van Wert HospitalComment on above:Performed By: #### KAIDEN 2131-12, KEKE, CBCA #### [facility] ([id number]) [address], [address] [place], [place] [address]AuI8r (Bld) [Mass fraction]5.9 %High4.4-5.6ProMedica Flower HospitalComment on above:Result Comment: NOTE ADA Guidelines Result HgbA1c Normal : less than 5.7 % Prediabetes : 5.7 % to 6.4 % Diabetes : > 6.4 % Use with caution in patients with abnormal hemoglobin variants as the half-life of red blood cells and in vivo glycation rates are affected.Performed By: #### KAIDEN 2131-12, KEKE, CBCA #### [facility] ([id number]) [address], [address] [place], [place] [address]Yptgdgchsy A1con 31-43-6589Fumynes glucose Estimated from glycated hemoglobin (Bld) [Mass/Vol]123 mg/dLSelect Medical Specialty Hospital - CincinnatiHbA1c (Bld) [Mass fraction]5.9 %High4.4 - 5.6 %[facility] Specialty Hospital - CincinnatiComment on above:NOTE ADA Guidelines Result HgbA1c Normal : less than 5.7 % Prediabetes : 5.7 % to 6.4 % Diabetes : > 6.4 % Use with caution in patients with abnormal hemoglobin variants as the half-life of red blood cells and in vivo glycation rates are affected. Interpretation and review of laboratory resultsAbnormalWellSpan York HospitalMICROALBUMIN - ALBUMIN:CREATININE URINE RATIOon 60-04-8634BUQ/CREAT RATIONOT CALCULATEDNormal0.0-30.0[facility] Comment on above:Result Comment: Result for Albumin/Creatinine Ratio cannot be reliably calculated because urine albumin and or urine creatinine is below the detection limit of the assay.Performed By: #### KAIDEN 2131-12, KEKE, CBCA #### [facility] ([id number]) [address], [address] [address]Skjtyiz DL <= 20 mg/L (U) [Mass/Vol]mg/dLNormal0.0-1.9ProMedica Flower HospitalComment on above:Performed By: #### KAIDEN 2131-12, KEKE, CBCA #### [facility] ([id number]) [address], [address] [address]RNTLQ CREAT46.22 mg/dLNormalProMedica Flower HospitalComment on above:Performed By: #### KAIDEN 2131-12, BMP, CBCA #### [facility] ([id number]) [address], [address] [address]Qprozqdlraxa - Albumin: Creatinine Urine Ratioon 03-07-2024 Albumin DL <= 20 mg/L (U) [Mass/Vol]mg/dL0.0 - 1.9 mg/dLProMedica Health System Albumin/Creatinine DL <= 1.0 mg/L (U) [Ratio]NOT CALCULATEDProMagruder HospitalComment on above: Result for Albumin/Creatinine Ratio cannot be reliably calculated because urine albumin and or urine creatinine is below the detection limit of the assay. Creatinine (U) [Mass/Vol]46.22 mg/dLSelect Medical Specialty Hospital - CincinnatiProMagruder HospitalTRIGLYCERIDEon 04-70-4294Hbveaiztlajm [Mass/Vol]113 mg/eNHdddbs06-125 [facility] HospitalComment on above:Performed By: #### THYR, 2131-12, BMP, CBCA #### [facility] ([id number]) [address], [address] [place], [place] [address]Gs Panel Informationon 62-88-9155NxsmnEusebia Huertas DO 01/26/2024 3:45 PM L Inj/Asp: L subacromial bursa on 01/26/2024 1:50 PM Indications: pain Details: 21 G needle, posterior approach Medications: 40 mg methylPREDNISolone acetate 40 MG/ML Outcome: tolerated well, no immediate complications Procedure, treatment alternatives, risks and benefits explained, specific risks discussed. Consent was given by the patient. [facility]annapolisXR Shoulder - left 2 Viewson 99-95-4950Spcannq Result: January 26, 2024 x-rays AP axillary and Y scapula of the left shoulder demonstrate a type 2 acromion. The glenohumeral joint and acromioclavicular joints are intact. There are no fractures identified. The humeral head is centered in the glenoid. Impression: Type 2 acromion Cipriano Huertas D.O.[facility] KannapolisRadiology Study observation (narrative)[facility] Health NetworkBASI METABOLIC PANLon 72-31-6329Gxaoq gap [Moles/Vol] 9 mmol/LNormal5-15ProOhiohealth Van Wert HospitalComment on above:Performed By: #### BMP #### [facility] ([id number]) [address], [address] [place], [place] [address]Skxiwqw [Mass/Vol]9.1 mg/dLNormal8.5-10.5ProMedica [facility]rbana HospitalComment on above:Performed By: #### BMP #### [facility] ([id number]) [address], [address] [place], [place] [address]Kttnyhty [Moles/Vol]101 mmol/SFvbbrb74-445JmeCcyhno [place] HospitalComment on above:Performed By: #### BMP #### [facility] ([id number]) [address] [place], [place] [address]UZ9 [Moles/Vol]31 mmol/SJckfjh94-26MkqCvnsicSt. John of God Hospital Comment on above:Performed By: #### BMP #### [facility] ([id number]) [address] [place], [place] [address]Fzstjvlalx [Mass/Vol]1.36 mg/dLHigh0.40-1.00ProOhiohealth Van Wert HospitalComment on above:Result Comment: METHOD TRACEABLE TO IDMS STANDARD Performed By: #### BMP #### [facility] ([id number]) [address], [address] [place], [place] [address]NGU/1.73 sq M.predicted among non-blacks MDRD (S/P/Bld) [Vol rate/Area]44 mL/min/{1.73_m2}Low>59ProOhiohealth Van Wert HospitalComment on above: Result Comment: Reported eGFR is based on the CKD-EPI 2020 equation that does not use a race coefficient.Performed By: #### BMP #### [facility] ([id number]) [address], [address] [place], [place] [address]Bsntjai [Mass/Vol]134 mg/pIFtvj13-78IaoErvnkvOhiohealth Van Wert Hospital Comment on above:Performed By: #### BMP #### [facility] ([id number]) [address], [address] [place], [place] [address]Mlldhvgwy [Moles/Vol]4.1 mmol/LNormal3.5-5.0ProRiverview Health Institute HospitalComment on above:Performed By: #### BMP #### [facility] ([id number]) [address], [address] [place], [place] [address]Tvqcgc [Moles/Vol]141 mmol/JYixgac430-331PzvKnjjsx [place] HospitalComment on above:Performed By: #### BMP #### [facility] ([id number]) [address], [address] [place], [place] [address]Dzje nitrogen [Mass/Vol]19 mg/dLNormal5-27ProOhiohealth Van Wert HospitalComment on above:Performed By: #### BMP #### [facility] ([id number]) [address], [address] [place], [place] [address]Mhifl Metabolic Panelon 94-87-0118Wiabr gap [Moles/Vol]9 mmol/L5 - 15 mmol/LProMedred bay hospital Health SystemCalcium [Mass/Vol]9.1 mg/dL8.5 - 10.5 mg/dL [facility] SystemChloride [Moles/Vol]101 mmol/L98 - 109 mmol/[facility] Health SystemCO2 [Moles/Vol]31 mmol/L22 - 32 mmol/[facility] Creatinine [Mass/Vol]1.36 mg/dLHigh0.40 - 1.00 mg/dLSelect Medical Specialty Hospital - [facility] Comment on above:METHOD TRACEABLE TO IDIL STANDARDeGFR (CKD-EPI)non-race gzygqwutf58ChsPage Memorial HospitalComment on above: Reported eGFR is based on the CKD-EPI 2020 equation that does not use a race coefficient. Glucose [Mass/Vol]134 mg/gLDcua27 - 99 mg/dLSelect Medical Specialty Hospital - [place] Interpretation and review of laboratory resultsAbnormDepartment of Veterans Affairs [facility] System Potassium [Moles/Vol]4.1 mmol/L3.5 - 5.0 mmol/LProMedica Health SystemSodium [Moles/Vol]141 mmol/L134 - 146 mmol/[facility] SystemUrea nitrogen [Mass/Vol]19 mg/dL5 - 27 mg/dLWellSpan Good Samaritan HospitalNo Panel Informationon [id number] Huertas DO 12/29/2023 3:11 PM Trigger Point Injection (CP[place] [address] [place] [address]): left gluteus tej on 12/29/2023 2:58 PM Indications: pain Details: 21 G needle Medications: 40 mg methylPREDNISolone acetate 40 MG/ML Outcome: tolerated well, no immediate complications Procedure, treatment alternatives, risks and benefits explained, specific risks discussed. [facility]apolisXR Spine Single viewon 20-01-0393Qmkkmys Result: Lateral lumbar and thoracic spine x-rays demonstrate to wedge deformities in the thoracic region both of them with a proximally 50 percent collapse. Estimated levels are T6 and T8. Impression: Stable appearance of compression fractures at T6 and T8 no new fractures Cipriano Huertas D.O.[facility] KannapolisRadiology Study observation (narrative)[facility] METABOLIC PANLon 42-91-2443Ylkvb gap [Moles/Vol] 7 mmol/LNormal5-15ProRiverview Health Institute HospitalComment on above:Performed By: #### KEKE, , 2131-12, CBCA #### [facility] ([id number]) [address], [address] [place], [place] [address]Awnbpbs [Mass/Vol]9.0 mg/dLNormal8.5-10.5PBerger Hospital HospitalComment on above:Performed By: #### KEKE, , 2131-12, CBCA #### [facility] ([id number]) [address] [place], [place] [address]Rclrgbtg [Moles/Vol]105 mmol/BSmgdfu74-453BayTnnnlk [place] HospitalComment on above:Performed By: #### KEKE, , 2131-12, CBCA #### [facility] ([id number]) [address], [address] [place], [place] [address]KO6 [Moles/Vol]28 mmol/HJduklr01-29MrwMjaoyn [facility] Comment on above:Performed By: #### KEKE, , 2131-12, CBCA #### [facility] ([id number]) [address], [address] [place], [place] [address]Nauqwzuexm [Mass/Vol]1.23 mg/dLHigh0.40-1.00ProOhiohealth Van Wert HospitalComment on above:Result Comment: METHOD TRACEABLE TO IDMS STANDARD Performed By: #### KEKE, , 2131-12, CBCMindi #### [facility] ([id number]) [address], [address] [place], [place] [address]YQC/1.73 sq M.predicted among non-blacks MDRD (S/P/Bld) [Vol rate/Area]50 mL/min/{1.73_m2}Low>59ProOhiohealth Van Wert HospitalComment on above: Result Comment: Reported eGFR is based on the CKD-EPI 2020 equation that does not use a race coefficient.Performed By: #### KEKE, , 2131-12, CBCMindi #### [facility] ([id number]) [address], [address] [place] [address]Wpvbbzt [Mass/Vol]88 mg/rHJcupbi69-31JwhPrqasw [facility] Comment on above:Performed By: #### KEKE, , 2131-12, CBCMindi #### [facility] ([id number]) [address] [address]Uxpyksiqj [Moles/Vol]3.9 mmol/LNormal3.5-5.0ProOhiohealth Van Wert HospitalComment on above:Performed By: #### KEKE, , 2131-12, CBCA #### [facility] ([id number]) [address] [place], [place] [address]Qewelk [Moles/Vol]140 mmol/HXaunke343-681IprWtzxgz [place] HospitalComment on above:Performed By: #### KEKE, , 2131-12, CBCA #### [facility] ([id number]) [address], [address] [place], [place] [address]Apqe nitrogen [Mass/Vol]17 mg/dLNormal5-27Pro[facility] HospitalComment on above:Performed By: #### KEKE, , 2131-12, CBCA #### [facility] ([id number]) [address], [address] [place], [place] [address]ELD AND AUTO DIFFon [id number] BASOPHIL0.1 X10E9/LNormal 0.0-0.2Pro[facility] HospitalComment on above:Performed By: #### KEKE, , 2131-12, CBCA #### [facility] ([id number]) [address], [address] [place], [place] [address]CSASXZYA NEUTROPHIL5.8 X10E9/LNormal1.5-6.6ProWilson [address] Hospitalca [facility] HospitalComment on above:Performed By: #### KEKE, , 2131-12, CBCA #### [facility] ([id number]) [address] [place], [place] [address]Mpzgayzab/100 WBC (Bld)0.6 %NormalProMedica [facility] Hospital Comment on above:Performed By: #### KEKE, , 2131-12, CBCA #### [facility] ([id number]) [address], [address] [place], [place] [address]Loufnohwrjw (Bld) [#/Vol]0.2 10*3/uLNormal0.0-0.4ProRiverview Health Institute HospitalComment on above:Performed By: #### KEKE, , 2131-12, CBCA #### [facility] ([id number]) [address], [address] [place], [place] [address]Xuuxikrckdc/100 WBC (Bld)1.9 %NormalProMedica Flower Hospital Comment on above:Performed By: #### KEKE, , 2131-12, CBCA #### [facility] ([id number]) [address], [address] [place], [place] [address]Ypsfrxfpbey distribution width (RBC) [Ratio]17.0 %High11.5-15.0 [facility] HospitalComment on above:Performed By: #### KEKE, , , CBCA #### [facility] ([id number]) [address], [address] [place], [place] [address]Yvhqznzkja (Bld) [Volume fraction]33.9 %Hqr89-30HepQhzmvx [facility] HospitalComment on above:Performed By: #### KEKE, , 2131-12, CBCA #### [facility] ([id number]) [address], [address] [place], [place] [address]Dpvmpqczij (Bld) [Mass/Vol]10.6 g/dLLow11.7-15.5[facility] HospitalComment on above:Performed By: #### KEKE, , 2131-12, CBCA #### [facility] ([id number]) [address], [address] [place], [place] [address]Npotrsscppn (Bld) [#/Vol]2.3 10*3/uLNormal1.0-3.5ProMedGrand Lake Joint Township District Memorial Hospital HospitalComment on above:Performed By: #### KEKE, , 2131-12, CBCA #### [facility] ([id number]) [address], [address] [place], [place] [address]Pwaohgsdxmu/100 WBC (Bld)25.6 %NormalProWilson [address] Hospitalca [facility] Comment on above:Performed By: #### KEKE, , 2131-12, CBCA #### [facility] ([id number]) [address], [address] [place], [place] [address]FOU (RBC) [Entitic mass]26.1 fyKnp55-92FlsLeybqpProMedica Flower Hospital Comment on above:Performed By: #### KEKE, , 2131-12, CBCA #### [facility] ([id number]) [address], [address] [place], [place] [address]ZRJH (RBC) [Mass/Vol]31.2 g/pCJjf93-25DwpLeardvProMedica Flower Hospital Comment on above:Performed By: #### KEKE, , 2131-12, CBCA #### [facility] ([id number]) [address], [address] [place], [place] [address]EKS (RBC) [Entitic vol]84 kHVereqp95-063AyhAiglhx [place] HospitalComment on above:Performed By: #### KEKE, , 2131-12, CBCA #### [facility] ([id number]) [address], [address] [place], [place] [address]Umtaqemzy (Bld) [#/Vol]0.6 10*3/uLNormal0-0.9Pro[facility] Flower HospitalComment on above:Performed By: #### KEKE, , 2131-12, CBCA #### [facility] ([id number]) [address], [address] [place], [place] [address]Foxpsuskl/100 WBC (Bld)6.8 %NormalProMedica Flower Hospital Comment on above:Performed By: #### KEKE, , 2131-12, CBCA #### [facility] ([id number]) [address], [address] [place], [place] [address]Irbjdvagcjc/100 WBC (Bld)65.1 %[facility] Comment on above:Performed By: #### KEKE, , 2131-12, CBCA #### [facility] ([id number]) [address], [address] [place], [place] [address]Hcskypns mean volume (Bld) [Entitic vol]8.1 fLNormal7-12 ProMrussell medical centera [facility] HospitalComment on above:Performed By: #### KEKE, , , CBCA #### [facility] ([id number]) [address], [address] [place], [place] [address]Yptvlhuux (Bld) [#/Vol]287 10*3/jISudtaa862-115XchLonlmo [facility] HospitalComment on above:Performed By: #### KEKE, , 2131-12, CBCA #### [facility] ([id number]) [address], [address] [place], [place] [address]REG COUNT4.05 X10E12/LNormal3.80-5.20ProR[facility] Comment on above:Performed By: #### KEKE, , 2131-12, CBCA #### [facility] ([id number]) [address], [address] [place], [place] [address]DZS (Bld) [#/Vol]9.0 10*3/uLNormal4.0-11.0ProWilson [address] Hospitalca [facility] HospitalComment on above:Performed By: #### KEKE, , 2131-12, CBCA #### [facility] ([id number]) [address], [address] [place], [place] [address]ZZQMCICQIaa 98-19-0124Zphrnxxyi [Mass/Vol]2.2 mg/dLNormal1.8-2.6 ProMSelect Medical Specialty [facility], Inc HospitalComment on above:Performed By: #### KEKE, , , CBCA #### [facility] ([id number]) [address], [address] [place], [place] [address]ALHTBQP B12on 72-40-5351Lskbeuazg (Vitamin B12) [Mass/Vol]370 pg/yBMfmrji708-400AraXvufzr [facility] HospitalComment on above:Performed By: #### KEKE, 18088-8, 2131-12, CBCA #### [facility] ([id number]) [address] [place], [place] [address]SJTNC METABOLIC PANLon 10-70-0730Rgbqy gap [Moles/Vol]14 mmol/L Normal5-15[facility] Miller HospitalComment on above:Performed By: #### KAIDEN, 2131-12, BMP, CBCA #### [facility] ([id number]) [address], [address] [place], [place] [address]Agoftwb [Mass/Vol]9.4 mg/dLNormal8.5-10.5[facility] HospitalComment on above:Performed By: #### KAIDEN, 2131-12, KEKE, CBCA #### [facility] ([id number]) [address], [address] [place], [place] [address]Zdfutotq [Moles/Vol]104 mmol/YDqnvyh41-509MqeIwxxon [facility] HospitalComment on above:Performed By: #### KAIDEN, 2131-12, KEKE, CBCA #### [facility] ([id number]) [address], [address] [place], [place] [address]JR7 [Moles/Vol]27 mmol/TBfqnma59-49IftTzutyo [facility] Comment on above:Performed By: #### KAIDEN, 2131-12, KEKE, CBCA #### [facility] ([id number]) [address], [address] [place], [place] [address]Gtdaajeoln [Mass/Vol]1.85 mg/dLHigh0.40-1.00ProMedica Miller HospitalComment on above:Result Comment: METHOD TRACEABLE TO IDMS STANDARD Performed By: #### KAIDEN, 2131-12, BMP, CBCA #### [facility] ([id number]) [address], [address] [place], [place] [address]OMI/1.73 sq M.predicted among non-blacks MDRD (S/P/Bld) [Vol rate/Area]31 mL/min/{1.73_m2}Low>59ProOhiohealth Van Wert HospitalComment on above: Result Comment: Reported eGFR is based on the CKD-EPI 2020 equation that does not use a race coefficient.Performed By: #### KAIDEN 2131-12, KEKE, ANNA #### [facility] ([id number]) [address], [address] [place], [place] [address]Asqbsns [Mass/Vol]128 mg/pNCyvy41-53UrmEprpqkOhiohealth Van Wert Hospital Comment on above:Performed By: #### KAIDEN 2131-12, ANNA DAVIES #### [facility] ([id number]) [address], [facility] [address] [place], [place] [address]Nrgwrvhoh [Moles/Vol]3.9 mmol/LNormal3.5-5.0ProOhiohealth Van Wert HospitalComment on above:Performed By: #### KAIDEN 2131-12, KEKE, ANNA #### [facility] ([id number]) [address] [place], [place] [address]Iluxdr [Moles/Vol]145 mmol/XFczwvz920-303WatNgedji [place] HospitalComment on above:Performed By: #### KAIDEN 2131-12, ANNA DAVIES #### [facility] ([id number]) [address] [place], [place] [address]Ccva nitrogen [Mass/Vol]36 mg/dLHigh5-27ProOhiohealth Van Wert HospitalComment on above:Performed By: #### KAIDEN 2131-12, KEKE, CBCMindi #### [facility] ([id number]) [address], [address] [place], [place] [address]Pyeuo Metabolic Panelon 94-38-7236Cmola gap [Moles/Vol]14 mmol/L 5 - 15 mmol/LProMedred bay hospital Health SystemCalcium [Mass/Vol]9.4 mg/dL8.5 - 10.5 mg/dL [facility] CincinnatiChloride [Moles/Vol]104 mmol/L98 - 109 mmol/[facility] SystemCO2 [Moles/Vol]27 mmol/L22 - 32 mmol/[facility] Creatinine [Mass/Vol]1.85 mg/dLHigh0.40 - 1.00 mg/dLSelect [facility]ty [facility] Comment on above:METHOD TRACEABLE TO IDIL STANDARDeGFR (CKD-EPI)non-race kobitmwdj96Qmn- PINSaint Alexius HospitalComment on above: Reported eGFR is based on the CKD-EPI 2020 equation that does not use a race coefficient. Glucose [Mass/Vol]128 mg/nXHqss80 - 99 mg/dLSelect [facility] Specialty [facility] [place] Interpretation and review of laboratory resultsAbnoCritical access hospital Potassium [Moles/Vol]3.9 mmol/L3.5 - 5.0 mmol/[facility] SystemSodium [Moles/Vol]145 mmol/L134 - 146 mmol/[facility] SystemUrea nitrogen [Mass/Vol]36 mg/dLHigh5 - 27 mg/dLWellSpan [facility] CBC AND AUTO DIFFon 02-51-4341QEQLQSWV BASOPHIL0.0 X10E9/LNormal0.0-0.2PSt. John of God HospitalComment on above:Performed By: #### KAIDEN 2131-12, BMP, CBCA #### [facility] ([id number]) [address] [place], [place] [address]KSTBYIRP NEUTROPHIL5.8 X10E9/LNormal1.5-6.6ProMedica Flower HospitalComment on above:Performed By: #### KAIDEN 2131-12, BMP, CBCA #### [facility] ([id number]) [address] [place], [place] [address]Jvpnikayt/100 WBC (Bld)0.4 %NormalProMedica Flower Hospital Comment on above:Performed By: #### THYDasha, 2131-12, BMP, CBCA #### [facility] ([id number]) [address], [address] [place], [place] [address]Btavkozvtgq (Bld) [#/Vol]0.0 10*3/uLNormal0.0-0.4Pro[address] Hospitalca [facility] HospitalComment on above:Performed By: #### KAIDEN 2131-12, BMP, CBCA #### [facility] ([id number]) [address], [address] [place], [place] [address]Vaqokymcupk/100 WBC (Bld)0.0 %NormalProRiverview Health Institute Hospital Comment on above:Performed By: #### KAIDEN 2131-12, BMP, CBCA #### [facility] ([id number]) [address], [facility] [address] [place], [place] [address]Fgdttpsgzey distribution width (RBC) [Ratio]16.2 %High11.5-15.0 [facility] HospitalComment on above:Performed By: #### KAIDEN 2131-12, BMP, CBCA #### [facility] ([id number]) [address] [place], [place] [address]Jmynlepdbs (Bld) [Volume fraction]35.1 %Dceowf19-69AnqZkmviw [place] HospitalComment on above:Performed By: #### KAIDEN 2131-12, BMP, CBCA #### [facility] ([id number]) [address] [place], [place] [address]Yyqmivvrft (Bld) [Mass/Vol]11.3 g/dLLow11.7-15.5ProMedGrand Lake Joint Township District Memorial Hospital HospitalComment on above:Performed By: #### KAIDEN 2131-12, BMP, CBCA #### [facility] ([id number]) [address], [address] [place], [place] [address]Wiythdkbnxl (Bld) [#/Vol]1.1 10*3/uLNormal1.0-3.5[facility] HospitalComment on above:Performed By: #### GUSDasha, 2131-12, BMP, CBCA #### [facility] ([id number]) [address] [place], [place] [address]Ymlfrvnrpwl/100 WBC (Bld)15.7 %NormalProMedica Flower Hospital Comment on above:Performed By: #### KAIDEN, 2131-12, BMP, CBCA #### [facility] ([id number]) [address], [address] [place], [place] [address]GRK (RBC) [Entitic mass]27.0 wzFdapll47-74SxfQmepzq Miller HospitalComment on above:Performed By: #### KAIDEN 2131-12, BMP, CBCA #### [facility] ([id number]) [address], [address] [place], [place] [address]LEZY (RBC) [Mass/Vol]32.2 g/aEOqcguv71-76OkbIvdxyu Miller HospitalComment on above:Performed By: #### KAIDEN 2131-12, BMP, CBCA #### [facility] ([id number]) [address], [address] [place], [place] [address]ZQY (RBC) [Entitic vol]84 rXBqmpou70-327UttVjxqab [facility] HospitalComment on above:Performed By: #### KAIDEN 2131-12, BMP, CBCA #### [facility] ([id number]) [address], [address] [place], [place] [address]Qfnmwwkjq (Bld) [#/Vol]0.2 10*3/uLNormal0-0.9ProMedica Miller HospitalComment on above:Performed By: #### THYR, 2131-12, BMP, CBCA #### [facility] ([id number]) [address] [place], [place] [address]Ngunnaxky/100 WBC (Bld)2.3 %NormalProMedica Flower Hospital Comment on above:Performed By: #### THYDasha, 2131-12, BMP, CBCA #### [facility] ([id number]) [address] [place], [place] [address]Sjufuustvoi/100 WBC (Bld)81.6 %NormalProMedica Flower Hospital Comment on above:Performed By: #### KAIDEN, 2131-12, BMP, CBCA #### [facility] ([id number]) [address] [place], [place] [address]Ikvqxdns mean volume (Bld) [Entitic vol]8.1 fLNormal7-12 [facility] HospitalComment on above:Performed By: #### KAIDEN, 2131-12, BMP, CBCA #### [facility] ([id number]) [address] [place], [place] [address]Kuovbdnpv (Bld) [#/Vol]380 10*3/lETysvmk821-867VxsDtapbg [place] HospitalComment on above:Performed By: #### KAIDEN, 2131-12, BMP, CBCA #### [facility] ([id number]) [address] [place], [place] [address]RXR COUNT4.19 X10E12/LNormal3.80-5.20[facility] Comment on above:Performed By: #### KAIDEN, 2131-12, BMP, CBCA #### [facility] ([id number]) [address] [place], [place] [address]FXI (Bld) [#/Vol]7.2 10*3/uLNormal4.0-11.0Pro[facility] HospitalComment on above:Performed By: #### KAIDEN, 2131-12, BMP, CBCA #### [facility] ([id number]) [address], [address] [place], [place] [address]BGP auto differentialon 99-52-6402Werbgqjop (Bld) [#/Vol]0.0 10*3/[facility] CenterBasophils/100 WBC (Bld)0.4 %[facility] CincinnatiEosinophils (Bld) [#/Vol]0.0 10*3/[facility] CenterEosinophils/100 WBC (Bld)0.0 %[facility] Hospital - CincinnatiErythrocyte distribution width (RBC) [Ratio]16.2 %High11.5 - 15.0 %[facility] - CincinnatiHematocrit (Bld) [Volume fraction]35.1 %35 - 47 %[facility] CincinnatiHemoglobin (Bld) [Mass/Vol]11.3 g/dLLow11.7 - 15.5 g/dLSelect Medical Specialty Hospital - CincinnatiInterpretation and review of laboratory resultsAbnormCleveland Clinic Mercy HospitalLymphocytes (Bld) [#/Vol]1.1 10*3/[facility] Medical CenterLymphocytes/100 WBC (Bld)15.7 %[facility] - CincinnatiMCH (RBC) [Entitic mass]27.0 pg27 - 34 [facility] HospitalMCHC (RBC) [Mass/Vol]32.2 g/dL32 - 36 g/dLSelect Medical Specialty Hospital - CincinnatiMCV (RBC) [Entitic vol]84 fL80 - 100 Carondelet HealthMonocytes (Bld) [#/Vol]0.2 10*3/[facility] CenterMonocytes/100 WBC (Bld)2.3 %[facility] - CincinnatiNeutrophils (Bld) [#/Vol]5.8 10*3/[facility] Medical CenterNeutrophils/100 WBC (Bld)81.6 % [facility] Hospital - CincinnatiPlatelet mean volume (Bld) [Entitic vol]8.1 fL7 - 12 fL [facility] CincinnatiPlatelets (Bld) [#/Vol]380 10*3/[facility] RBC (Bld) [#/Vol]4.19 10*6/[facility] CenterWBC corrected for nucl RBC Auto (Bld) [#/Vol]7.2PMoses Taylor HospitalCobalamin (Vitamin B12) [Mass/Vol]on 11-78-2055CtyTcyacxWayne HealthCare Main CampusTHYROID PROFILEon 84-52-8024Ofrc T4 [Mass/Vol]1.19 ng/dLNormal0.61-1.60[facility] Comment on above:Performed By: #### KAIDEN 2131-12, KEKE, CBCA #### [facility] ([id number]) [address] [address], [address] [place], [place] [address]BCG6.11 uIU/mLLow0.49-4.67ProOhiohealth Van Wert HospitalComment on above:Performed By: #### KAIDEN 2131-12, KEKE, CBCA #### [facility] ([id number]) [address] [facility] [address], [address] [place], [place] [address]Bdszbof profile includes TSH FT4on 74-46-9752Kdyk T4 [Mass/Vol] 1.19 ng/dL0.61 - 1.60 ng/dLSelect Medical Specialty Hospital - CincinnatiInterpretation and review of laboratory resultsAbnormalSelect Medical Specialty Hospital - CincinnatiTS Qn0.11 m[IU]/LLowWellSpan Good Samaritan HospitalVITAMIN B12on 33-33-4852Ukvufygwa (Vitamin B12) [Mass/Vol]204 pg/zRYqaiuw829-015VmvSfhfme [place] HospitalComment on above: Performed By: #### KAIDEN, 2131-12, KEKE, CBCA #### [facility] ([id number]) [address] [facility], [address] [place], [place] [address]Zbayurt B12on 68-69-0394Dvetpzxqc (Vitamin B12) [Mass/Vol]204 pg/mL180 - 914 pg/mLSelect Medical Specialty Hospital - CincinnatiPOCT Influenza A/Influenza B/SARS-COV-2 Veritoron 62-86-8811Ugcxbjcb Poct Influenza A AntigenNegative [facility] CincinnatiExternal Poct Influenza B AntigenNegativeCritical access hospitalARS-CoV-2 (COVID-19) Ag IA.rapid Ql (Resp)NegativeWellSpan Good Samaritan HospitalXR Chest PA and Lateralon 09-24-2023 Clinical history: Community-acquired pneumonia. Acute changes and [...] by Tristen Neely MD on 09/24/2023 11:13 PMSECTRAPACSTristen Neely MD - 09/24/2023 Clinical history: Community-acquired pneumonia. Acute [...] Tristen Neely MD on 09/24/2023 11:13 PM [facility] CenterOwler, Inc. Mcl[facility] MichiganRadiology Study observation (narrative)[facility] CenterOwler, Inc. [facility] Northern MichiganXR Chest PA and LateralOrdered By: Tristen Neely on 71-14-1003FcdIjyalvWayne HealthCare Main Campus Work Phone: Basic Metabolic Panelon 36-30-2120Jivnf gap [Moles/Vol]8 mmol/L5 - 15 mmol/LProMedica Health SystemCalcium [Mass/Vol]9.0 mg/dL8.5 - 10.5 mg/dLProSalem City Hospital SystemChloride [Moles/Vol]100 mmol/L98 - 109 mmol/[facility] Health SystemCO2 [Moles/Vol]28 mmol/L22 - 32 mmol/[facility] SystemCreatinine [Mass/Vol]1.06 mg/dLHigh0.40 - 1.00 mg/dLSelect Medical Specialty Hospital - CincinnatiComment on above:METHOD TRACEABLE TO MIDDLESEX HOSPITAL STANDARDeGFR (CKD-EPI)non-race ztooeqaxv21Lake Taylor Transitional Care HospitalComment on above: Reported eGFR is based on the CKD-EPI 2020 equation that does not use a race coefficient. Glucose [Mass/Vol]148 mg/jNYhie79 - 99 mg/dLSelect Medical Specialty Hospital - [place] Interpretation and review of laboratory resultsAbGarnet Health Medical Center Potassium [Moles/Vol]3.4 mmol/LLow3.5 - 5.0 mmol/[facility] Health SystemSodium [Moles/Vol]136 mmol/L134 - 146 mmol/[facility] SystemUrea nitrogen [Mass/Vol]24 mg/dL5 - 27 mg/dLWellSpan Good Samaritan Hospital Basic Metabolic Panelon 36-66-7080Uetcb gap [Moles/Vol]9 mmol/L5 - 15 mmol/L [facility] SystemCalcium [Mass/Vol]8.8 mg/dL8.5 - 10.5 mg/dLAkron Children's Hospital SystemChloride [Moles/Vol]103 mmol/L98 - 109 mmol/[facility] Health SystemCO2 [Moles/Vol]27 mmol/L22 - 32 mmol/[facility] SystemCreatinine [Mass/Vol]1.18 mg/dLHigh0.40 - 1.00 mg/dLSelect Medical Specialty Hospital - CincinnatiComment on above:METHOD TRACEABLE TO MIDDLESEX HOSPITAL STANDARDeGFR (CKD-EPI)non-race sjlfhgoyb67LmkLake Taylor Transitional Care HospitalComment on above: Reported eGFR is based on the CKD-EPI 2020 equation that does not use a race coefficient. Glucose [Mass/Vol]157 mg/tDPtaa97 - 99 mg/dLSelect Medical Specialty Hospital - [place] Interpretation and review of laboratory resultsAbGarnet Health Medical Center Potassium [Moles/Vol]3.7 mmol/L3.5 - 5.0 mmol/[facility] Health SystemSodium [Moles/Vol]139 mmol/L134 - 146 mmol/[facility] SystemUrea nitrogen [Mass/Vol]18 mg/dL5 - 27 mg/dLWellSpan Good Samaritan Hospital Basic Metabolic Panelon 40-47-7598Gaslt gap [Moles/Vol]5 mmol/L5 - 15 mmol/L [facility] CincinnatiCalcium [Mass/Vol]8.7 mg/dL8.5 - 10.5 mg/dLSelect Medical Specialty Hospital - CincinnatiChloride [Moles/Vol]104 mmol/L98 - 109 mmol/[facility] SystemCO2 [Moles/Vol]27 mmol/L22 - 32 mmol/[facility] HospitalCreatinine [Mass/Vol]1.57 mg/dLHigh0.40 - 1.00 mg/dLSelect Medical Specialty Hospital - CincinnatiComment on above:METHOD TRACEABLE TO IDIL STANDARDeGFR (CKD-EPI)non-race ednmcbosd74HslPage Memorial HospitalComment on above: Reported eGFR is based on the CKD-EPI 2020 equation that does not use a race coefficient. Glucose [Mass/Vol]107 mg/mYVfvn38 - 99 mg/dLSelect Medical Specialty Hospital - [place] Interpretation and review of laboratory resultsAbGarnet Health Medical Center Potassium [Moles/Vol]3.6 mmol/L3.5 - 5.0 mmol/[facility] Health SystemSodium [Moles/Vol]136 mmol/L134 - 146 mmol/[facility] HospitalUrea nitrogen [Mass/Vol]21 mg/dL5 - 27 mg/dLWellSpan Good Samaritan Hospital Blood gas, venouson 27-28-4242Iiguwhgd patency Wrist artery --pre arterial punctureSelect Medical Specialty Hospital - CincinnatiBase deficit (Bld) [Moles/Vol]1.0 mmol/[facility] HospitalCO2 (BldV) [Partial pressure]67.8 mm[Hg][facility]rico CampusHCO3 (Bld) [Moles/Vol]28.0 mmol/LHSentara Virginia Beach General HospitalInterpretation and review of laboratory resultsAbGarnet Health Medical CenterOxygen (BldV) [Partial pressure]43 mm[Hg][facility] Hospital - CincinnatiOxygen therapy source and amount [CARE]NCProMagruder HospitalOxygen/Inspired gas setting [Volume Fraction] Udikwpovae35 %[facility] Medical Specialty Hospital - CincinnatipH (BldV)7.224 [pH]Low7.320 - 7.420Critical access hospitalaO2% Calculated from oxygen partial pressure (BldV) [Mass fraction]68.0 %Low80.0 - PINF %Critical access hospitalpecimen site NarrativeN/AProCincinnati Shriners Hospitalpecimen type Nom (Spec)VENOUSWellSpan Good Samaritan HospitalCBC auto differentialon 26-35-4135Kzaenfexh (Bld) [#/Vol]0.1 10*3/[facility] CenterBasophils/100 WBC (Bld)0.6 % [facility] Hospital - CincinnatiEosinophils (Bld) [#/Vol]0.2 10*3/uLSelect Medical Specialty Hospital - CincinnatiEosinophils/100 WBC (Bld)2.2 %[facility] Hospital - CincinnatiErythrocyte distribution width (RBC) [Ratio]16.6 %High11.5 - 15.0 %[facility] Hematocrit (Bld) [Volume fraction]35.0 %35 - 47 %[facility] Hemoglobin (Bld) [Mass/Vol]11.3 g/dLLow11.7 - 15.5 g/dLSelect Medical Specialty Hospital - [place] Interpretation and review of laboratory resultsAbnormalSelect Medical Specialty Hospital - [place] Lymphocytes (Bld) [#/Vol]2.6 10*3/[facility] Medical CenterLymphocytes/100 WBC (Bld)25.4 %[facility] CincinnatiMCH (RBC) [Entitic mass]29.3 pg27 - 34 pg [facility] - CincinnatiMCHC (RBC) [Mass/Vol]32.3 g/dL32 - 36 g/dLSelect Medical Specialty Hospital - CincinnatiMCV (RBC) [Entitic vol]91 fL80 - 100 [facility] Monocytes (Bld) [#/Vol]0.6 10*3/[facility] CenterMonocytes/100 WBC (Bld) 5.7 %[facility] CincinnatiNeutrophils (Bld) [#/Vol]6.7 10*3/uLGrover Memorial HospitalMedica Health SystemNeutrophils/100 WBC (Bld)66.1 %[facility] CincinnatiPlatelet mean volume (Bld) [Entitic vol]7.9 fL7 - 12 fLPWayne HealthCare Main CampusPlatelets (Bld) [#/Vol]308 10*3/[facility] CenterRBC (Bld) [#/Vol]3.86 10*6/[facility] CenterWBC corrected for nucl RBC Auto (Bld) [#/Vol]10.2PMoses Taylor HospitalCritical Careon [id number] Vohra, MD 07/25/2023 7:27 PM Critical Care Performed by: Mary [...] performing treatments and interventions and examination of patientWellSpan York HospitalECG 12 leadon [id number] Health SystemLaboratory - Microbiology and Antimicrobial susceptibilityon 07-25-2023 FLUAV+FLUBV RNA HUBERT+probe Ql (Unsp spec)NegativeNegative^NegativeSelect Medical Specialty Hospital - CincinnatiLactate (P yong) [Moles/Vol]on [id number] HealthCare Main Campus Lactate w/ Reflexon [id number] (P yong) [Moles/Vol]1.1 mmol/L0.4 - 2.0 mmol/LPrMemorial Health System Selby General HospitalComment on above: Result did not trigger repeat Lactate, re-order if needed. SARS/FLU A+B/RSV by NAAT/Molecular (M4RT Collection Tube)on [id number] RNA HUBERT+probe Nom (Unsp spec)NegativeNegative^NegativeProMagruder Hospital SARS-CoV-2 (COVID-19) RNA HUBERT+probe Ql (Resp)Not detectedNot Detected^Not DetectedProMagruder HospitalComment on above:NOTE The Xpert Xpress SARS-CoV-2/Flu/RSV Plus test is [...] operators who are performing tests using either Vim[employer] or [employer] systems and is limited to laboratories that [...] specimen repeat. Fact Sheet for Healthcare Providers: https://www.fda.gov/media/438576/download Fact Sheet for Patients: https://www.fda.gov/media/323307/download [facility] Survios SystemTroponin Ion 08-78-1734Qfbobxrp I.cardiac [Mass/Vol]0.01 ng/mL0.00 - 0.04 ng/mLSelect Medical Specialty Hospital - CincinnatiTroponin I.cardiac [Mass/Vol]on 69-60-6345SqjSaeyzsWayne HealthCare Main CampusXR Chest PA and Lateralon 04-21-5880YsxupcAbdelrahman Patel MD - 07/25/2023 Procedure: Chest x-ray performed Number of views:2 History:Shortness of breath Comparison:07/24/2023 Findings: The heart and lungs show no acute findings, and the mediastinum and satnam are grossly negative . Impression: 1. No acute change. Finalized by Abdelrahman Patel MD on 07/25/2023 5:16 PM [facility] CincinnatiRadiology Study observation (narrative)[facility] - CincinnatiXR Chest PA and LateralOrdered By: Abdelrahman Patel on 06-48-4507RkeYodgwdWayne HealthCare Main Campus Work Phone: Basic Metabolic Panelon 77-49-1466Lvcvv gap [Moles/Vol]8 mmol/L5 - 15 mmol/[facility] Hospitalica Health SystemCalcium [Mass/Vol]9.5 mg/dL8.5 - 10.5 mg/dLAkron Children's Hospital SystemChloride [Moles/Vol]102 mmol/L98 - 109 mmol/LProMedica Health SystemCO2 [Moles/Vol]32 mmol/L22 - 32 mmol/LPrUniversity Health Truman Medical Centerica Health SystemCreatinine [Mass/Vol]1.27 mg/dLHigh0.40 - 1.00 mg/dLSelect Medical Specialty Hospital - CincinnatiComment on above:METHOD TRACEABLE TO IDIL STANDARDeGFR (CKD-EPI)non-race xorvepqvq06Qoc- PINSaint Alexius HospitalComment on above: Reported eGFR is based on the CKD-EPI 2020 equation that does not use a race coefficient. Glucose [Mass/Vol]87 mg/dL65 - 99 mg/dLSelect Medical Specialty Hospital - CincinnatiInterpretation and review of laboratory resultsAbnormalSelect Medical Specialty Hospital - CincinnatiPotassium [Moles/Vol]4.0 mmol/L3.5 - 5.0 mmol/LProMedica Health SystemSodium [Moles/Vol] 142 mmol/L134 - 146 mmol/LProMedica Health SystemUrea nitrogen [Mass/Vol]15 mg/dL5 - 27 mg/dLWellSpan Good Samaritan HospitalCBC auto differentialon 16-47-0899Hyyxibchc (Bld) [#/Vol]0.1 10*3/[facility] CenterBasophils/100 WBC (Bld)0.6 %[facility] - CincinnatiEosinophils (Bld) [#/Vol]0.1 10*3/[facility] Medical CenterEosinophils/100 WBC (Bld)1.3 %[facility] Hospital - CincinnatiErythrocyte distribution width (RBC) [Ratio]19.3 %High11.5 - 15.0 %[facility] Hospital - CincinnatiHematocrit (Bld) [Volume fraction]35.7 %35 - 47 % [facility] - CincinnatiHemoglobin (Bld) [Mass/Vol]11.5 g/dLLow11.7 - 15.5 g/dL [facility] - CincinnatiInterpretation and review of laboratory resultsAbnormal [facility] - CincinnatiLymphocytes (Bld) [#/Vol]1.5 10*3/[facility] Medical CenterLymphocytes/100 WBC (Bld)14.5 %[facility] - CincinnatiMCH (RBC) [Entitic mass]29.3 pg27 - 34 [facility] HospitalMCHC (RBC) [Mass/Vol]32.2 g/dL32 - 36 g/dLSelect Medical Specialty Hospital - CincinnatiMCV (RBC) [Entitic vol]91 fL80 - 100 [facility]onde[facility] HealthMonocytes (Bld) [#/Vol]0.6 10*3/[facility] Monocytes/100 WBC (Bld)5.8 %[facility] Hospital - CincinnatiNeutrophils (Bld) [#/Vol]8.1 10*3/[facility] HospitalNeutrophils/100 WBC (Bld)77.8 %[facility] Hospital - CincinnatiPlatelet mean volume (Bld) [Entitic vol]8.9 fL7 - 12 [facility]onde[facility] HealthPlatelets (Bld) [#/Vol]321 10*3/[facility] Health Medical CenterRBC (Bld) [#/Vol]3.92 10*6/uLSelect Medical Specialty Hospital - CincinnatiWBC corrected for nucl RBC Auto (Bld) [#/Vol]10.5PMoses Taylor HospitalTS with Reflexon 25-85-6906OFN Qn0.80 m[IU]/LProMedPenn State Health Rehabilitation HospitalCBC AND AUTO DIFFon 99-63-4653NWOSWUNA BASOPHIL0.1 X10E9/LNormal0.0-0.2PFort Hamilton HospitalComment on above:Performed By: #### XENIA, 64643-7, , CBCA #### [facility] ([id number]) [address] [place], [place] [address]QKHEIJAB NEUTROPHIL6.7 X10E9/LHigh1.5-6.6Wayne HospitalComment on above:Performed By: #### XENIA, 08705-1, , CBCA #### [facility] ([id number]) [address] [place], [place] [address]Ksdngbssw/100 WBC (Bld)1.2 %[facility] Comment on above:Performed By: #### XENIA, 92760-6, , CBCA #### [facility] ([id number]) [address] [place], [place] [address]Tppcvgtfbhc (Bld) [#/Vol]0.2 10*3/uLNormal0.0-0.4Wayne HospitalComment on above:Performed By: #### XENIA, 66847-3, , CBCA #### [facility] ([id number]) [address] [place], [place] [address]Vczpgamdaxv/100 WBC (Bld)2.2 %[facility] Comment on above:Performed By: #### CMP, 62013-2, , CBCA #### [facility] ([id number]) [address] [place], [place] [address]Cbfiwifnfvv distribution width (RBC) [Ratio]17.3 %High11.5-15.0 ProMSumma Health Barberton CampusComment on above:Performed By: #### CMP, 01619-9, , CBCA #### [facility] ([id number]) [address] [place], [place] [address]Pzygobmkay (Bld) [Volume fraction]40.6 %Fxxqul37-20TuyNlmlicSouthwest General Health CenterComment on above:Performed By: #### CMP, 91187-3, 24836-4, CBCA #### [facility] ([id number]) [address] [facility] [place], [place] [address]Ilzzrscpiv (Bld) [Mass/Vol]13.3 g/pONvwqpx21.7-15.5PFort Hamilton HospitalComment on above:Performed By: #### CMP, 64877-5, , CBCA #### [facility] ([id number]) [address] [place], [place] [address]Okxaxioewoe (Bld) [#/Vol]2.4 10*3/uLNormal1.0-3.5PFort Hamilton HospitalComment on above:Performed By: #### CMP, 55625-0, , CBCA #### [facility] ([id number]) [address] [facility] [place], [place] [address]Uwyylhjfubf/100 WBC (Bld)22.7 %NormalWayne Hospital Comment on above:Performed By: #### CMP, 70891-5, , CBCA #### [facility] ([id number]) [address] [place], [place] [address]ANW (RBC) [Entitic mass]28.4 hbCiinnf67-66TgkQcdkmkSouthwest General Health CenterComment on above:Performed By: #### CMP, 54388-8, , CBCA #### [facility] ([id number]) [address] [place], [place] [address]CVPF (RBC) [Mass/Vol]32.7 g/sBKcokew13-20HbcHlusqm [facility]park HospitalComment on above:Performed By: #### CMP, 75559-0, 67351-1, CBCA #### [facility] ([id number]) [address] [facility] [place], [place] [address]ESB (RBC) [Entitic vol]87 pUTsnzta24-226YwuVcmtgq [facility] HospitalComment on above:Performed By: #### CMP, 02669-0, 98061-5, CBCA #### [facility] ([id number]) [address] [facility] [place], [place] [address]Vifliznfp (Bld) [#/Vol]1.2 10*3/uLHigh0-0.9ProSouthwest General Health CenterComment on above:Performed By: #### CMP, 59867-0, , CBCA #### [facility] ([id number]) [address] [facility] [place], [place] [address]Repguyaod/100 WBC (Bld)11.2 %NormalWayne Hospital Comment on above:Performed By: #### CMP, 25818-1, 35405-5, CBCA #### [facility] ([id number]) [address] [facility] [place], [place] [address]Ehorrwqsfwz/100 WBC (Bld)62.7 %[facility] Comment on above:Performed By: #### CMP, 59958-4, , CBCA #### [facility] ([id number]) [address] [place], [place] [address]Opaywhkz mean volume (Bld) [Entitic vol]8.3 fLNormal7-12 ProMedicCommunity Regional Medical CenterComment on above:Performed By: #### CMP, 34439-6, 55787-3, CBCA #### [facility] ([id number]) [address] [place], [place] [address]Yvutpbwti (Bld) [#/Vol]301 10*3/dCFnngxg348-766YmyKmcfvp [facility] HospitalComment on above:Performed By: #### CMP, 37187-5, 55889-9, CBCA #### [facility] ([id number]) [address] [place], [place] [address]KQV COUNT4.68 X10E12/LNormal3.80-5.20[facility] Comment on above:Performed By: #### XENIA, 91456-4, 74007-8, CBCA #### [facility] ([id number]) [address] [place], [place] [address]WTX (Bld) [#/Vol]10.7 10*3/uLNormal4.0-11.0ProSouthwest General Health CenterComment on above:Performed By: #### XENIA, 72886-4, 62269-5, CBCA #### [facility] ([id number]) [address] [place], [place] [address]JJNVYPNWGVFGO METABOLIC PANELon 95-57-6502Oljvjtp [Mass/Vol]3.5 g/dLNormal3.2-5.3PFort Hamilton HospitalComment on above:Performed By: #### XENIA, 13985-9, 67481-6, CBCA #### [facility] ([id number]) [address] [place], [place] [address]NCA [Catalytic activity/Vol]72 U/GTntsyn53-519XcxFjskdqSouthwest General Health CenterComment on above:Performed By: #### XENIA, 58817-4, 30388-8, CBCA #### [facility] ([id number]) [address] [place], [place] [address]DWZ [Catalytic activity/Vol]42 U/LHigh0-31ProMedTriHealth Good Samaritan HospitalComment on above:Performed By: #### XENIA, 60467-2, 94088-3, CBCA #### [facility] ([id number]) [address] [place], [place] [address]Smfwf gap [Moles/Vol]9 mmol/LNormal5-15ProSouthwest General Health CenterComment on above:Performed By: #### XENIA, 47159-4, 22596-6, CBCA #### [facility] ([id number]) [address] [place], [place] [address]TGR [Catalytic activity/Vol]22 U/LNormal0-41Wayne HospitalComment on above:Performed By: #### XENIA, 17190-4, , CBCA #### [facility] ([id number]) [address] [facility] [address] [address] [place], [place] [address]Lwkojjocm [Mass/Vol]0.8 mg/dLNormal0.3-1.2PFort Hamilton HospitalComment on above:Performed By: #### XENIA, 81264-5, , CBCA #### [facility] ([id number]) [address] [place], [place] [address]Byatgbu [Mass/Vol]10.2 mg/dLNormal8.5-10.5PFort Hamilton HospitalComment on above:Performed By: #### XENIA, 99718-0, , CBCA #### [facility] ([id number]) [address] [place], [place] [address]Jpjgqknu [Moles/Vol]105 mmol/YSlefdo11-435TdiXtzrrhSouthwest General Health CenterComment on above:Performed By: #### XENIA, 45616-1, , CBCA #### [facility] ([id number]) [address] [place], [place] [address]SM6 [Moles/Vol]22 mmol/CGmropo50-43XxwThbmifFort Hamilton Hospital Comment on above:Performed By: #### XENIA, 30105-4, , CBCA #### [facility] ([id number]) [address] [place], [place] [address]Awsqxqsuld [Mass/Vol]1.29 mg/dLHigh0.40-1.00ProSouthwest General Health CenterComment on above:Result Comment: METHOD TRACEABLE TO IDMS STANDARD Performed By: #### XENIA, 95636-4, , CBCA #### [facility] ([id number]) [address] [place], [place] [address]AWU/1.73 sq M.predicted among non-blacks MDRD (S/P/Bld) [Vol rate/Area]48 mL/min/{1.73_m2}Low>59ProSouthwest General Health CenterComment on above: Result Comment: Reported eGFR is based on the CKD-EPI 2020 equation that does not use a race coefficient.Performed By: #### XENIA, 90709-1, , CBCA #### [facility] ([id number]) [address] [place], [place] [address]Yneujaq [Mass/Vol]116 mg/lNThnh51-19AzgMwipqhSouthwest General Health Center Comment on above:Performed By: #### XENIA, 54208-6, , CBCA #### [facility] ([id number]) [address] [place], [place] [address]Bjejhpbwv [Moles/Vol]3.2 mmol/LLow3.5-5.0ProSouthwest General Health CenterComment on above:Performed By: #### XENIA, 94263-2, , CBCA #### [facility] ([id number]) [address] [place], [place] [address]Rbyumkm [Mass/Vol]7.8 g/dLNormal6.0-8.0ProSouthwest General Health CenterComment on above:Performed By: #### XENIA, 02793-5, , CBCA #### [facility] ([id number]) [address] [place], [place] [address]Bnnowb [Moles/Vol]136 mmol/RZfqrvh801-317UloOcbwta [facility]park HospitalComment on above:Performed By: #### XENIA, 73757-0, , CBCA #### [facility] ([id number]) [address] [place], [place] [address]Pzua nitrogen [Mass/Vol]30 mg/dLHigh5-23ProSouthwest General Health CenterComment on above:Performed By: #### XENIA, 56792-5, , CBCA #### [facility] ([id number]) [address] [place], [place] [address]QT ABDOMEN AND PELVIS WO CONTon 22-00-9812FW ABDOMEN AND PELVIS WO CONTCT ABDOMEN AND PELVIS WO CONT CLINICAL INFORMATION: [...] by Kai Finn MD on 04/28/2023 10:39 PMNormalProSouthwest General Health CenterGlucose Glucometer (BldC) [Mass/Vol]on 21-99-6211Ptiudkp [Mass/Vol]148 mg/gLOlbm30-55PysLuvbqvSouthwest General Health CenterGlucose [Mass/Vol]116 mg/xRLmtk52-26 Wayne HospitalGlucose [Mass/Vol]134 mg/dRNqos04-98VwhBvpqxdSouthwest General Health CenterMAGNESIUMon 11-99-8834Gesnpyfaq [Mass/Vol]2.3 mg/dLNormal1.8-2.6 Wayne HospitalComment on above:Performed By: #### CMP, 28299-7, 55175-1, CBCA #### [facility] ([id number]) [address] [facility] [place], [place] [address]Mwobmpfbfc [Mass/Vol]on 79-34-0300KMQYOMNMWC18.1 ug/mLNormal 5.0-40.0Wayne HospitalComment on above:Result Comment: Peak 30-40 ug/mL Trough 5-20 ug/ml Performed By: #### XENIA, 59003-1, , CBCA #### [facility] ([id number]) [address] [place], [place] [address]HRL AND AUTO DIFFon 56-35-3549IUAEHMEO BASOPHIL0.1 X10E9/LNormal 0.0-0.2PFort Hamilton HospitalComment on above:Performed By: #### XENIA, 01476- 0, , CBCA #### [facility] ([id number]) [address] [place], [place] [address]Tscalfxjs/100 WBC (Bld)1.0 %NormalWayne Hospital Comment on above:Performed By: #### XENIA, 22707-6, , CBCA #### [facility] ([id number]) [address] [place], [place] [address]Itjertbnomb distribution width (RBC) [Ratio]17.6 %High11.5-15.0 Wayne HospitalComment on above:Performed By: #### XENIA, 44581-0, , CBCA #### [facility] ([id number]) [address] [place], [place] [address]Dzryguumoh (Bld) [Volume fraction]42.6 %Haorgo95-36DvqVejukuSouthwest General Health CenterComment on above:Performed By: #### XENIA, 93521-0, , CBCA #### [facility] ([id number]) [facility] [place], [place] [address]Gdgjwburai (Bld) [Mass/Vol]13.6 g/aMFbjssx51.7-15.5PFort Hamilton HospitalComment on above:Performed By: #### XENIA, 80122-3, 78489-3, CBCA #### [facility] ([id number]) [address] [facility] [place], [place] [address]OJAUFPAACX, ATYPICAL1.9 %NormalProSouthwest General Health CenterComment on above:Performed By: #### CMP, 12169-9, 64739-9, CBCA #### [facility] ([id number]) [address] [facility] [place], [place] [address]Jflcswtnzlk (Bld) [#/Vol]3.1 10*3/uLNormal1.0-3.5ProMedica Santiam HospitalComment on above:Performed By: #### CMP, 56093-3, , CBCA #### [facility] ([id number]) [address] [facility] [place], [place] [address]Nyktlaxsrlo/100 WBC (Bld)29.5 %NormalLutheran Hospital Hospital Comment on above:Performed By: #### CMP, 91637-9, , CBCA #### [facility] ([id number]) [address] [facility] [place], [place] [address]VCO (RBC) [Entitic mass]27.7 qxDmqybk08-17AyzVuxfuhSouthwest General Health CenterComment on above:Performed By: #### CMP, 91841-2, 20333-6, CBCA #### [facility] ([id number]) [address] [place], [place] [address]HWBJ (RBC) [Mass/Vol]32.0 g/bWCxlpzr50-14GblVimyhh [facility] HospitalComment on above:Performed By: #### CMP, 32163-2, 12367-1, CBCA #### [facility] ([id number]) [address] [facility] [place], [place] [address]XCK (RBC) [Entitic vol]87 qMSibtjh84-475YyhJuayfj [facility] HospitalComment on above:Performed By: #### CMP, 13945-1, 98850-6, CBCA #### [facility] ([id number]) [address] [place], [place] [address]Phagukvke (Bld) [#/Vol]1.2 10*3/uLHigh0-0.9ProSouthwest General Health CenterComment on above:Performed By: #### CMP, 64216-0, 28641-8, CBCA #### [facility] ([id number]) [address] [place], [place] [address]Fjawrlmph/100 WBC (Bld)12.4 %NormalProCleveland Clinic [facility] Hospital Comment on above:Performed By: #### CMP, 08653-6, 80354-6, CBCA #### [facility] ([id number]) [address] [place], [place] [address]Kpomuhnsxka (Bld) [#/Vol]5.4 10*3/uLNormal1.5-6.6ProSouthwest General Health CenterComment on above:Performed By: #### XENIA, 43101-4, , CBCA #### [facility] ([id number]) [address] [place], [place] [address]Lhbbizea mean volume (Bld) [Entitic vol]8.6 fLNormal7-12 ProMedica Santiam HospitalComment on above:Performed By: #### XENIA, 53869-1, , CBCA #### [facility] ([id number]) [address] [place], [place] [address]Vjuxsbuix (Bld) [#/Vol]398 10*3/ePYopxid846-224WshXhafei [facility] HospitalComment on above:Performed By: #### CMP, 06768-2, 87017-2, CBCA #### [facility] ([id number]) [address] [place], [place] [address]CSMZBGJQBRGNJ6+AbnormalNONEProMedica Santiam HospitalComment on above:Performed By: #### CMP, 16135-9, , CBCA #### [facility] ([id number]) [address] [place], [place] [address]SPV COUNT4.92 X10E12/LNormal3.80-5.20ProSouthwest General Health Center Comment on above:Performed By: #### XENIA, 68006-1, , CBCA #### [facility] ([id number]) [address] [place], [place] [address]MEJ GUEWFLOIMY84.2 %NormalProSouthwest General Health CenterComment on above:Performed By: #### XENIA, 82555-7, 37678-7, CBCA #### [facility] ([id number]) [address] [place], [place] [address]EGQ (Bld) [#/Vol]9.7 10*3/uLNormal4.0-11.0ProSouthwest General Health CenterComment on above:Performed By: #### XENIA, 00205-4, , CBCA #### [facility] ([id number]) [address] [place], [place] [address]KUKUYEPBVQBYC METABOLIC PANELon 36-93-3118Hluwnve [Mass/Vol]3.8 g/dLNormal3.2-5.3ProMedTriHealth Good Samaritan HospitalComment on above:Performed By: #### XENIA, 33741-7, , CBCA #### [facility] ([id number]) [address] [place], [place] [address]MGX [Catalytic activity/Vol]80 U/ESmubcv83-012OlvFsvykeSouthwest General Health CenterComment on above:Performed By: #### XENIA, 00903-3, , CBCA #### [facility] ([id number]) [address] [place], [place] [address]WWM [Catalytic activity/Vol]49 U/LHigh0-31PFort Hamilton HospitalComment on above:Performed By: #### XENIA, 46856-0, , CBCA #### [facility] ([id number]) [address] [place], [place] [address]Mlfro gap [Moles/Vol]11 mmol/LNormal5-15ProCleveland Clinic [facility] HospitalComment on above:Performed By: #### XENIA, 72265-3, , CBCA #### [facility] ([id number]) [address] [place], [place] [address]DUJ [Catalytic activity/Vol]26 U/LNormal0-41Wayne HospitalComment on above:Performed By: #### CMP, 41647-5, 85838-3, CBCA #### [facility] ([id number]) [address] [place], [place] [address]Dktpbhymw [Mass/Vol]0.5 mg/dLNormal0.3-1.2PFort Hamilton HospitalComment on above:Performed By: #### XENIA, 97221-1, , CBCA #### [facility] ([id number]) [address] [place], [place] [address]Eiiipmd [Mass/Vol]10.8 mg/dLHigh8.5-10.5PFort Hamilton HospitalComment on above:Performed By: #### XENIA, 45240-7, , CBCA #### [facility] ([id number]) [address] [place], [place] [address]Tbckprnk [Moles/Vol]109 mmol/VInsddo12-402AymOoxtrxSouthwest General Health CenterComment on above:Performed By: #### XENIA, 63346-4, , CBCA #### [facility] ([id number]) [address] [place], [place] [address]OG4 [Moles/Vol]20 mmol/ERnr66-06CgzBwhnxpFort Hamilton Hospital Comment on above:Performed By: #### CMP, 50608-6, , CBCA #### [facility] ([id number]) [address] [place], [place] [address]Tkzddwgtsq [Mass/Vol]1.00 mg/dLNormal0.40-1.00ProSouthwest General Health CenterComment on above:Result Comment: METHOD TRACEABLE TO IDMS STANDARD Performed By: #### CMP, 01506-3, , CBCA #### [facility] ([id number]) [address] [place], [place] [address]KPG/1.73 sq M.predicted among non-blacks MDRD (S/P/Bld) [Vol rate/Area]64 mL/min/{1.73_m2}Normal>59ProSouthwest General Health CenterComment on above:Result Comment: Reported eGFR is based on the CKD-EPI 2020 equation that does not use a race coefficient.Performed By: #### XENIA, 44000-4, , CBCA #### [facility] ([id number]) [address] [facility] [place], [place] [address]Qydgcsx [Mass/Vol]144 mg/yZAfaa81-46ZdzTunnecWayne Hospital Comment on above:Performed By: #### XENIA, 65577-3, , CBCA #### [facility] ([id number]) [address] [facility] [place], [place] [address]Nmlhtutke [Moles/Vol]3.9 mmol/LNormal3.5-5.0ProSouthwest General Health CenterComment on above:Performed By: #### XENIA, 55557-0, , CBCA #### [facility] ([id number]) [address] [place], [place] [address]Fqzpiln [Mass/Vol]8.7 g/dLHigh6.0-8.0[facility] Comment on above:Performed By: #### XENIA, 75598-9, , CBCA #### [facility] ([id number]) [address] [place], [place] [address]Bqbzng [Moles/Vol]140 mmol/ZAllpxy582-251GlpOucuib [facility] HospitalComment on above:Performed By: #### XENIA, 03655-2, , CBCA #### [facility] ([id number]) [address] [place], [place] [address]Udie nitrogen [Mass/Vol]24 mg/dLHigh5-23ProSouthwest General Health CenterComment on above:Performed By: #### XENIA, 28801-5, , CBCA #### [facility] ([id number]) [address] [facility] [place], [place] [address]Owtdqfn Glucometer (BldC) [Mass/Vol]on 15-71-8966Sxihylr [Mass/Vol]138 mg/kSUvsc19-44GbgUjvzsrSouthwest General Health CenterGlucose [Mass/Vol]175 mg/pTPxfp25-08VvyFtgmsvSouthwest General Health CenterMAGNESIUMon 28-87-8810Epvyiichv [Mass/Vol]2.6 mg/dLNormal1.8-2.6ProSouthwest General Health CenterComment on above: Performed By: #### XENIA, 15184-2, 94942-0, CBCA #### [facility] ([id number]) [address] [facility] [place], [place] [address]HZJKJZPIRrt 24-78-4160Xlmlzeokk [Moles/Vol]3.9 mmol/LNormal 3.5-5.0ProSouthwest General Health CenterComment on above:Performed By: #### XENIA, 63750- 0, 30293-0, CBCA #### [facility] ([id number]) [address] [facility] [place], [place] [address]DY CHEST 1 VWon 16-73-2618UU CHEST 1 VWXR CHEST 1 VW Clinical History: Pneumonia. Portable Upright chest: 04/28/2023 Comparison: 04/23/2023 Findings: A single portable view of the chest was obtained. There is strandy density in the lower lungs with interval improvement. No pneumothorax or definite pleural effusion is a. Mediastinal contours are stable IMPRESSION: Basilar opacities compatible with atelectasis. Finalized by Saurabh Anderson MD on 04/28/2023 9:[address] Hospitalca Santiam HospitalBLOOD CULTUREon 63-87-9714Tukvmuef identified Aer cx Nom (Bld)CULTURE RESULTS NO GROWTH 5 DAYSNormalProSouthwest General Health CenterBacteria identified Aer cx Nom (Bld)CULTURE RESULTS NO GROWTH 5 DAYSNormalProSouthwest General Health CenterCBC AND AUTO DIFFon 04-27-2023 ABSOLUTE BASOPHIL0.2 X10E9/LNormal0.0-0.2ProMedica Santiam HospitalComment on above:Performed By: #### CMP, 99025-3, , CBCA #### [facility] ([id number]) [address] [facility] [place], [place] [address]ILKCHLSD NEUTROPHIL3.9 X10E9/LNormal1.5-6.6ProSouthwest General Health CenterComment on above:Performed By: #### CMP, 48770-8, , CBCA #### [facility] ([id number]) [address] [facility] [place], [place] [address]Ogscehysq/100 WBC (Bld)2.9 %NormalWayne Hospital Comment on above:Performed By: #### CMP, 86269-2, , CBCA #### [facility] ([id number]) [address] [facility] [place], [place] [address]Mgcirbjchdn (Bld) [#/Vol]0.1 10*3/uLNormal0.0-0.4ProSouthwest General Health CenterComment on above:Performed By: #### CMP, 94657-1, , CBCA #### [facility] ([id number]) [address] [facility] [place], [place] [address]Mkverwbwgug/100 WBC (Bld)1.7 %NormalWayne Hospital Comment on above:Performed By: #### CMP, 20074-4, , CBCA #### [facility] ([id number]) [address] [facility] [place], [place] [address]Oycbmlcygvv distribution width (RBC) [Ratio]17.7 %High11.5-15.0 ProMSumma Health Barberton CampusComment on above:Performed By: #### CMP, 01312-7, , CBCA #### [facility] ([id number]) [address] [facility] [place], [place] [address]Oahjmhxblb (Bld) [Volume fraction]38.8 %Tabish32-69UyvFuljtwSouthwest General Health CenterComment on above:Performed By: #### CMP, 94252-5, 50727-9, CBCA #### [facility] ([id number]) [address] [facility] [place], [place] [address]Xwwsgitmpq (Bld) [Mass/Vol]12.7 g/fRRljsnd34.7-15.5PFort Hamilton HospitalComment on above:Performed By: #### CMP, 30585-4, 62239-4, CBCA #### [facility] ([id number]) [address] [place], [place] [address]Vllcpuwrzoz (Bld) [#/Vol]1.7 10*3/uLNormal1.0-3.5PFort Hamilton HospitalComment on above:Performed By: #### XENIA, 11411-0, , CBCA #### [facility] ([id number]) [address] [facility] [place], [place] [address]Hkemzpmyszi/100 WBC (Bld)26.3 %NormalProSouthwest General Health Center Comment on above:Performed By: #### XENIA, 91489-3, , CBCA #### [facility] ([id number]) [address] [facility] [place], [place] [address]YTO (RBC) [Entitic mass]28.2 rsVyzuir81-18VcsKnhjbfSouthwest General Health CenterComment on above:Performed By: #### CMP, 85861-5, , CBCA #### [facility] ([id number]) [address] [place], [place] [address]AYVX (RBC) [Mass/Vol]32.7 g/hIRgjolc09-15LeyExtyurSouthwest General Health CenterComment on above:Performed By: #### CMP, 59431-9, 15814-3, CBCA #### [facility] ([id number]) [address] [facility] [place], [place] [address]NLZ (RBC) [Entitic vol]86 aQSsnxow28-329AstZvugge Baypark HospitalComment on above:Performed By: #### CMP, 37720-2, 31655-5, CBCA #### [facility] ([id number]) [address] [place], [place] [address]Fsafpdqcl (Bld) [#/Vol]0.7 10*3/uLNormal0-0.9Wayne HospitalComment on above:Performed By: #### CMP, 46796-4, 11014-5, CBCA #### [facility] ([id number]) [address] [place], [place] [address]Xiykvithx/100 WBC (Bld)10.1 %NormalWayne Hospital Comment on above:Performed By: #### CMP, 75855-2, 97498-6, CBCA #### [facility] ([id number]) [address] [place], [place] [address]Mydkqcwrglf/100 WBC (Bld)59.0 %[facility] Comment on above:Performed By: #### CMP, 45408-4, , CBCA #### [facility] ([id number]) [address] [place], [place] [address]Uxxhfwdd mean volume (Bld) [Entitic vol]8.1 fLNormal7-12 Wayne HospitalComment on above:Performed By: #### CMP, 70968-2, , CBCA #### [facility] ([id number]) [address] [place], [place] [address]Raaqinssg (Bld) [#/Vol]364 10*3/xSRmssop714-561JtfFomlvp [facility] HospitalComment on above:Performed By: #### CMP, 05035-5, , CBCA #### [facility] ([id number]) [address] [place], [place] [address]HMV COUNT4.49 X10E12/LNormal3.80-5.20[facility] Comment on above:Performed By: #### CMP, 33181-5, , CBCA #### [facility] ([id number]) [address] [place], [place] [address]NCX (Bld) [#/Vol]6.6 10*3/uLNormal4.0-11.0ProSouthwest General Health CenterComment on above:Performed By: #### XENIA, 47097-9, , CBCA #### [facility] ([id number]) [address] [place], [place] [address]YVQJJPYDBPGJP METABOLIC PANELon 99-78-5202Pmthcjk [Mass/Vol]3.7 g/dLNormal3.2-5.3PPremier Health [facility] HospitalComment on above:Performed By: #### XENIA, 94016-7, , CBCA #### [facility] ([id number]) [address] [place], [place] [address]RTI [Catalytic activity/Vol]74 U/NQyvasa48-456WhxYwawgwSouthwest General Health CenterComment on above:Performed By: #### XENIA, 06130-5, , CBCA #### [facility] ([id number]) [address] [place], [place] [address]QET [Catalytic activity/Vol]47 U/LHigh0-31PFort Hamilton HospitalComment on above:Performed By: #### XENIA, 00114-4, , CBCA #### [facility] ([id number]) [address] [place], [place] [address]Tnghg gap [Moles/Vol]12 mmol/LNormal5-15ProSouthwest General Health CenterComment on above:Performed By: #### XENIA, 06957-7, , CBCA #### [facility] ([id number]) [address] [place], [place] [address]AJB [Catalytic activity/Vol]29 U/LNormal0-41ProSouthwest General Health CenterComment on above:Performed By: #### XENIA, 24355-0, , CBCA #### [facility] ([id number]) [address] [place], [place] [address]Fjcxonztk [Mass/Vol]0.6 mg/dLNormal0.3-1.2PPremier Health [facility] HospitalComment on above:Performed By: #### XENIA, 28066-0, , CBCA #### [facility] ([id number]) [address] [place], [place] [address]Srawdiw [Mass/Vol]10.3 mg/dLNormal8.5-10.5PFort Hamilton HospitalComment on above:Performed By: #### XENIA, 57627-0, 56597-3, CBCA #### [facility] ([id number]) [address] [place], [place] [address]Rdisyvqy [Moles/Vol]108 mmol/IBlskgz26-097YcyQgikygSouthwest General Health CenterComment on above:Performed By: #### XENIA, 36034-4, , CBCA #### [facility] ([id number]) [address] [place], [place] [address]XL1 [Moles/Vol]21 mmol/EMdj14-34OfcBgzntjFort Hamilton Hospital Comment on above:Performed By: #### XENIA, 32477-9, , CBCA #### [facility] ([id number]) [address] [place], [place] [address]Biyfhfavbj [Mass/Vol]1.03 mg/dLHigh0.40-1.00Wayne HospitalComment on above:Result Comment: METHOD TRACEABLE TO IDMS STANDARD Performed By: #### XENIA, 91903-6, , CBCA #### [facility] ([id number]) [address] [place], [place] [address]YKG/1.73 sq M.predicted among non-blacks MDRD (S/P/Bld) [Vol rate/Area]62 mL/min/{1.73_m2}Normal>59ProSouthwest General Health CenterComment on above:Result Comment: Reported eGFR is based on the CKD-EPI 1 equation that does not use a race coefficient.Performed By: #### XENIA, 89389-6, , CBCA #### [facility] ([id number]) [address] [place], [place] [address]Wifwnoq [Mass/Vol]121 mg/mFYbsx23-30DkuEihhrrWayne Hospital Comment on above:Performed By: #### XENIA, 28294-8, , CBCA #### [facility] ([id number]) [address] [place], [place] [address]Hdsugtdxm [Moles/Vol]3.3 mmol/LLow3.5-5.0Wayne HospitalComment on above:Performed By: #### XENIA, 47970-2, , CBCA #### [facility] ([id number]) [address] [place], [place] [address]Hqiemqy [Mass/Vol]8.3 g/dLHigh6.0-8.0[facility] Comment on above:Performed By: #### XENIA, 96971-8, , CBCA #### [facility] ([id number]) [address] [place], [place] [address]Dzrhmb [Moles/Vol]141 mmol/WHmumeb219-109AwlRinbrr [facility] HospitalComment on above:Performed By: #### XENIA, 94921-9, , CBCA #### [facility] ([id number]) [address] [place], [place] [address]Bdoc nitrogen [Mass/Vol]17 mg/dLNormal5-23Wayne HospitalComment on above:Performed By: #### XENIA, 56499-9, , CBCA #### [facility] ([id number]) [address] [place], [place] [address]Cnsuacp Glucometer (BldC) [Mass/Vol]on 67-50-6900Hnakahw [Mass/Vol]127 mg/kEJqzm16-45BpfRfblftSouthwest General Health CenterGlucose [Mass/Vol]119 mg/nQFpqy37-59KrvMswbttSouthwest General Health CenterGlucose [Mass/Vol]132 mg/pNLpoa18-66 [facility] HospitalGlucose [Mass/Vol]119 mg/jTPswe51-97FjwAsfcrvSouthwest General Health CenterMAGNESIUMon 33-79-2522Kfbttjaei [Mass/Vol]2.5 mg/dLNormal1.8-2.6 [facility] HospitalComment on above:Performed By: #### XENIA, 15527-6, , CBCA #### [facility] ([id number]) [address] [place], [place] [address]XTKWORTPCfn 76-82-7981Oqrpxrrau [Moles/Vol]3.7 mmol/LNormal 3.5-5.0ProSouthwest General Health CenterComment on above:Performed By: #### XENIA, 75056- 0, , CBCA #### [facility] ([id number]) [address] [place], [place] [address]KKC AND AUTO DIFFon 23-84-5069PHOVDEAQ BASOPHIL0.1 X10E9/LNormal 0.0-0.2ProMedica Santiam HospitalComment on above:Performed By: #### XENIA, 97190- 0, , CBCA #### [facility] ([id number]) [address] [place], [place] [address]LWTFNRRM NEUTROPHIL4.2 X10E9/LNormal1.5-6.6ProSouthwest General Health CenterComment on above:Performed By: #### XENIA, 85452-9, , CBCA #### [facility] ([id number]) [address] [place], [place] [address]Lvkinrzpu/100 WBC (Bld)1.1 %NormalProCleveland Clinic [facility] Comment on above:Performed By: #### XENIA, 12511-3, , CBCA #### [facility] ([id number]) [address] [place], [place] [address]Ijvxzdsiulz (Bld) [#/Vol]0.0 10*3/uLNormal0.0-0.4ProSouthwest General Health CenterComment on above:Performed By: #### XENIA, 23580-8, , CBCA #### [facility] ([id number]) [address] [place], [place] [address]Ftyhbprcfwa/100 WBC (Bld)0.4 %NormalWayne Hospital Comment on above:Performed By: #### XENIA, 94644-6, , CBCA #### [facility] ([id number]) [address] [place], [place] [address]Dcecyiqkmce distribution width (RBC) [Ratio]17.3 %High11.5-15.0 [facility] HospitalComment on above:Performed By: #### XENIA, 26943-3, 02824-3, CBCA #### [facility] ([id number]) [address] [facility] [place], [place] [address]Xbxzcscfhq (Bld) [Volume fraction]32.3 %Tnm57-73MikTtqdrzSouthwest General Health CenterComment on above:Performed By: #### XENIA, 22698-7, , CBCA #### [facility] ([id number]) [address] [place], [place] [address]Flntwwugbp (Bld) [Mass/Vol]10.2 g/dLLow11.7-15.5PFort Hamilton HospitalComment on above:Performed By: #### XENIA, 30785-1, , CBCA #### [facility] ([id number]) [address] [place], [place] [address]Kvdgtwwbxfa (Bld) [#/Vol]1.7 10*3/uLNormal1.0-3.5PFort Hamilton HospitalComment on above:Performed By: #### XENIA, 20989-9, , CBCA #### [facility] ([id number]) [address] [place], [place] [address]Uazebmssicv/100 WBC (Bld)25.7 %NormalWayne Hospital Comment on above:Performed By: #### XENIA, 87091-2, , CBCA #### [facility] ([id number]) [address] [place], [place] [address]BOU (RBC) [Entitic mass]27.3 ruWrvjal88-27MzoZjkfduSouthwest General Health CenterComment on above:Performed By: #### CMP, 60079-2, , CBCA #### [facility] ([id number]) [address] [place], [place] [address]OSRL (RBC) [Mass/Vol]31.6 g/eDYjh19-84NtvUlklexWayne Hospital Comment on above:Performed By: #### CMP, 22154-7, 07070-6, CBCA #### [facility] ([id number]) [address] [place], [place] [address]UKP (RBC) [Entitic vol]86 dMOzndqb68-763WtdDlgwxeWayne HospitalComment on above:Performed By: #### CMP, 25242-8, , CBCA #### [facility] ([id number]) [address] [place], [place] [address]Gfbnvlvod (Bld) [#/Vol]0.6 10*3/uLNormal0-0.9Wayne HospitalComment on above:Performed By: #### CMP, 87917-9, , CBCA #### [facility] ([id number]) [address] [place], [place] [address]Qghzltbac/100 WBC (Bld)9.2 %NormalWayne Hospital Comment on above:Performed By: #### CMP, 35985-8, , CBCA #### [facility] ([id number]) [address] [place], [place] [address]Dwpwyxkfnvn/100 WBC (Bld)63.6 %[facility] Comment on above:Performed By: #### CMP, 73760-2, , CBCA #### [facility] ([id number]) [address] [place], [place] [address]Qugmjvla mean volume (Bld) [Entitic vol]8.4 fLNormal7-12 ProMSumma Health Barberton CampusComment on above:Performed By: #### CMP, 98432-7, 88814-1, CBCA #### [facility] ([id number]) [address] [place], [place] [address]Pnqjvddji (Bld) [#/Vol]334 10*3/dXBtcuzt115-149IvtVyhfub [facility] HospitalComment on above:Performed By: #### XENIA, 89397-4, 03801-2, CBCA #### [facility] ([id number]) [address] [place], [place] [address]MMQ COUNT3.74 X10E12/LLow3.80-5.20ProSouthwest General Health Center Comment on above:Performed By: #### XENIA, 42313-8, 84605-3, CBCA #### [facility] ([id number]) [address] [place], [place] [address]COH (Bld) [#/Vol]6.7 10*3/uLNormal4.0-11.0ProSouthwest General Health CenterComment on above:Performed By: #### XENIA, 26985-1, , CBCA #### [facility] ([id number]) [address] [place], [place] [address]YYDDGVIOHAIYH METABOLIC PANELon 65-91-9913Xxjrssu [Mass/Vol]2.9 g/dLLow3.2-5.3ProMedTriHealth Good Samaritan HospitalComment on above:Performed By: #### XENIA, 41646-7, , CBCA #### [facility] ([id number]) [address] [place], [place] [address]ACE [Catalytic activity/Vol]55 U/GFucghu04-644DtxSseqhhSouthwest General Health CenterComment on above:Performed By: #### CMP, 71414-7, 01207-5, CBCA #### [facility] ([id number]) [address] [place], [place] [address]XUL [Catalytic activity/Vol]33 U/LHigh0-31PFort Hamilton HospitalComment on above:Performed By: #### XENIA, 11434-0, 77222-1, CBCA #### [facility] ([id number]) [address] [place], [place] [address]Ffjuc gap [Moles/Vol]5 mmol/LNormal5-15ProSouthwest General Health CenterComment on above:Performed By: #### XENIA, 90777-2, , CBCA #### [facility] ([id number]) [address] [place], [place] [address]MVA [Catalytic activity/Vol]21 U/LNormal0-41ProSouthwest General Health CenterComment on above:Performed By: #### XENIA, 98977-0, , CBCA #### [facility] ([id number]) [address] [place], [place] [address]Xvsvtxbdh [Mass/Vol]0.6 mg/dLNormal0.3-1.2PFort Hamilton HospitalComment on above:Performed By: #### XENIA, 80697-1, , CBCA #### [facility] ([id number]) [address] [place], [place] [address]Oljaney [Mass/Vol]9.3 mg/dLNormal8.5-10.5PFort Hamilton HospitalComment on above:Performed By: #### XENIA, 81973-5, , CBCA #### [facility] ([id number]) [address] [place], [place] [address]Fqbpygag [Moles/Vol]117 mmol/NHbrt57-331HqaLnzffdSouthwest General Health CenterComment on above:Performed By: #### XENIA, 48896-5, , CBCA #### [facility] ([id number]) [address] [place], [place] [address]WK3 [Moles/Vol]20 mmol/NNxt56-49ZiyBpdcibFort Hamilton Hospital Comment on above:Performed By: #### XENIA, 44087-9, , CBCA #### [facility] ([id number]) [address] [place], [place] [address]Hccuusewxv [Mass/Vol]0.59 mg/dLNormal0.40-1.00ProSouthwest General Health CenterComment on above:Result Comment: METHOD TRACEABLE TO IDMS STANDARD Performed By: #### XENIA, 05622-3, , CBCA #### [facility] ([id number]) [address] [place], [place] [address]eOHF (CKD-EPI) NON-RACE DEPENDENT>90Normal>59ProSouthwest General Health CenterComment on above:Result Comment: Reported eGFR is based on the CKD-EPI 2020 equation that does not use a race coefficient.Performed By: #### XENIA, 51030-1, , CBCA #### [facility] ([id number]) [address] [place], [place] [address]Ysyuegw [Mass/Vol]95 mg/aOAkcfzj70-56QgtBzxlsnWayne Hospital Comment on above:Performed By: #### XENIA, 01879-7, , CBCA #### [facility] ([id number]) [address] [place], [place] [address]Allluiphm [Moles/Vol]3.4 mmol/LLow3.5-5.0Wayne HospitalComment on above:Performed By: #### XENIA, 31630-9, , CBCA #### [facility] ([id number]) [address] [place], [place] [address]Aftzkrq [Mass/Vol]6.6 g/dLNormal6.0-8.0Wayne HospitalComment on above:Performed By: #### XENIA, 17579-3, , CBCA #### [facility] ([id number]) [address] [place], [place] [address]Lfihuw [Moles/Vol]142 mmol/CHpzdmm710-941LcnClxzsl [facility] HospitalComment on above:Performed By: #### XENIA, 06057-9, , CBCA #### [facility] ([id number]) [address] [place], [place] [address]Uuqi nitrogen [Mass/Vol]12 mg/dLNormal5-23ProSouthwest General Health CenterComment on above:Performed By: #### XENIA, 85457-9, , CBCA #### [facility] ([id number]) [address] [place], [place] [address]Ptpnbbs Glucometer (BldC) [Mass/Vol]on 97-44-8952Tekxlna [Mass/Vol]111 mg/yXRqas52-54WasStfzooSouthwest General Health CenterGlucose [Mass/Vol]118 mg/gPXyzd26-72LzrJmsher [facility] HospitalGlucose [Mass/Vol]225 mg/qHGstn70-57 [facility] HospitalGlucose [Mass/Vol]105 mg/cJTwxo35-37RcnTkpgslSouthwest General Health CenterMAGNESIUMon 28-81-9233Dygpxbptp [Mass/Vol]2.2 mg/dLNormal1.8-2.6 ProMSumma Health Barberton CampusComment on above:Performed By: #### XENIA, 04387-3, , CBCA #### [facility] ([id number]) [address] [place], [place] [address]UDUJYDHEBns 72-95-1809Fnkaceofe [Moles/Vol]4.0 mmol/LNormal 3.5-5.0Wayne HospitalComment on above:Performed By: #### XENIA, 06046- 0, , CBCA #### [facility] ([id number]) [address] [place], [place] [address]XNSJS METABOLIC PANLon 46-34-2367Lujbf gap [Moles/Vol]6 mmol/L Normal5-15ProSouthwest General Health CenterComment on above:Performed By: #### XENIA, 70524-3, , CBCA #### [facility] ([id number]) [address] [place], [place] [address]Uaiprlg [Mass/Vol]9.6 mg/dLNormal8.5-10.5ProMedica [facility]anti[facility] HospitalComment on above:Performed By: #### XENIA, 08837-5, , CBCA #### [facility] ([id number]) [address] [place], [place] [address]Tadzbzwm [Moles/Vol]115 mmol/AScxf31-374FgpFekcibSouthwest General Health CenterComment on above:Performed By: #### XENIA, 86589-6, 26502-4, CBCA #### [facility] ([id number]) [address] [place], [place] [address]HK4 [Moles/Vol]18 mmol/IAri72-86MbbCakjkvFort Hamilton Hospital Comment on above:Performed By: #### XENIA, 07547-0, 08706-0, CBCA #### [facility] ([id number]) [address] [place], [place] [address]Okjqmcsytu [Mass/Vol]0.56 mg/dLNormal0.40-1.00Wayne HospitalComment on above:Result Comment: METHOD TRACEABLE TO IDMS STANDARD Performed By: #### XENIA, 52328-6, , CBCA #### [facility] ([id number]) [address] [place], [place] [address]kEQZ (CKD-EPI) NON-RACE DEPENDENT>90Normal>59ProSouthwest General Health CenterComment on above:Result Comment: Reported eGFR is based on the CKD-EPI 2021 equation that does not use a race coefficient.Performed By: #### XENIA, 86624-6, 82457-3, CBCA #### [facility] ([id number]) [address] [place], [place] [address]Weizcjp [Mass/Vol]86 mg/fSLkltds85-33MeyLhplxwSouthwest General Health Center Comment on above:Performed By: #### XENIA, 16591-0, 88301-4, CBCA #### [facility] ([id number]) [address] [place], [place] [address]Hstwedjih [Moles/Vol]3.5 mmol/LNormal3.5-5.0Wayne HospitalComment on above:Performed By: #### XENIA, 50569-0, 69947-6, CBCA #### [facility] ([id number]) [address] [place], [place] [address]Iasxtk [Moles/Vol]139 mmol/WMfrknq675-596XlfSpozrh [facility] HospitalComment on above:Performed By: #### XENIA, 18719-9, , CBCA #### [facility] ([id number]) [address] [place], [place] [address]Ktig nitrogen [Mass/Vol]14 mg/dLNormal5-23ProSouthwest General Health CenterComment on above:Performed By: #### XENIA, 01491-0, , CBCA #### [facility] ([id number]) [address] [place], [place] [address]ODXJIHDZ BLOOD COUNTon 93-00-1801Lyibmalvlbj distribution width (RBC) [Ratio]18.1 %High11.5-15.0Wayne HospitalComment on above: Performed By: #### XENIA, 84887-9, , CBCA #### [facility] ([id number]) [address] [facility] [place], [place] [address]Kouzwozgpy (Bld) [Volume fraction]32.2 %Kcz61-17EqbBshjrtWayne HospitalComment on above:Performed By: #### XENIA, 64058-2, , CBCA #### [facility] ([id number]) [address] [place], [place] [address]Yzmjetohtj (Bld) [Mass/Vol]10.1 g/dLLow11.7-15.5Pro[facility] HospitalComment on above:Performed By: #### XENIA, 94369-3, , CBCA #### [facility] ([id number]) [address] [place], [place] [address]KNC (RBC) [Entitic mass]27.4 yiGrwqyr72-05PxpWfwoefSouthwest General Health CenterComment on above:Performed By: #### XENIA, 01592-2, , CBCA #### [facility] ([id number]) [address] [place], [place] [address]GWBW (RBC) [Mass/Vol]31.5 g/wABdh85-08YptWvatxeWayne Hospital Comment on above:Performed By: #### XENIA, 38488-2, , CBCA #### [facility] ([id number]) [address] [place], [place] [address]CIE (RBC) [Entitic vol]87 dJLjmfxe23-458XwwAbrhqqWayne HospitalComment on above:Performed By: #### XENIA, 54406-6, 57816-1, CBCA #### [facility] ([id number]) [address] [place], [place] [address]Pmkkxymy mean volume (Bld) [Entitic vol]8.7 fLNormal7-12 ProMSumma Health Barberton CampusComment on above:Performed By: #### XENIA, 69063-1, , CBCA #### [facility] ([id number]) [address] [place], [place] [address]Ylnnarvzz (Bld) [#/Vol]343 10*3/pZAiwyoh827-319SafTcxrus [facility] HospitalComment on above:Performed By: #### XENIA, 95974-4, , CBCA #### [facility] ([id number]) [address] [place], [place] [address]VRQ COUNT3.70 X10E12/LLow3.80-5.20[facility] Comment on above:Performed By: #### XENIA, 52524-0, , CBCA #### [facility] ([id number]) [address] [place], [place] [address]ACP (Bld) [#/Vol]7.6 10*3/uLNormal4.0-11.0Wayne HospitalComment on above:Performed By: #### CMP, 37530-7, 80174-4, CBCA #### [facility] ([id number]) [address] [place], [place] [address]Spxfnkj Glucometer (BldC) [Mass/Vol]on 86-57-1473Dptzrhk [Mass/Vol]160 mg/xFAext65-83QvaFyuzdi [facility] HospitalGlucose [Mass/Vol]126 mg/wVNejm00-87GppZwwdpy [facility] HospitalGlucose [Mass/Vol]128 mg/bPAilf61-78 [facility] HospitalGl[facility] [Mass/Vol]158 mg/oNZvhf06-09OpqKncqrf [facility] HospitalGlucose [Mass/Vol]82 mg/pXBowpic94-92UkqSgpzjj [facility] HospitalGlucose [Mass/Vol]93 mg/wDYgzwmd63-20TrcDggekdSouthwest General Health CenterMAGNESIUMon 04-25-2023 Magnesium [Mass/Vol]2.1 mg/dLNormal1.8-2.6ProSouthwest General Health CenterComment on above:Performed By: #### XENIA, 14380-6, , CBCA #### [facility] ([id number]) [address] [place], [place] [address]IDCNNMPLAFeg 23-79-4881Zrmdeuhon [Mass/Vol]3.2 mg/dLNormal 2.4-4.9ProSouthwest General Health CenterComment on above:Performed By: #### XENIA, 85021- 0, , CBCA #### [facility] ([id number]) [address] [place], [place] [address]FFOFUPFYOwe 31-74-5666Xsiqaucdj [Moles/Vol]3.7 mmol/LNormal 3.5-5.0ProSouthwest General Health CenterComment on above:Performed By: #### XENIA, 02128- 0, , CBCA #### [facility] ([id number]) [address] [place], [place] [address]Iabaehkwaf trough [Mass/Vol]on 31-23-7099OYDYIVGBZU OXLIAS88.7 ug/mLHigh5.0-20.0ProSouthwest General Health CenterComment on above:Performed By: #### XENIA, 34854-6, , CBCA #### [facility] ([id number]) [address] [place], [place] [address]voeqBDZncdv [Mass/Vol]on 11-18-4283TPHYDHJXMGV<0.5Low1.0-13.0 ProMedicCommunity Regional Medical CenterComment on above:Result Comment: NOTE This test was developed and its performance characteristics determined by [facility] [place] ([facility]). It has not been cleared or approved by the FDA. [facility] is regulated under CLIA as qualified to perform high-complexity testing. This test is used for clinical purposes. It should not be regarded as investigational or for research. Test Performed By: [place] [address] [employer] Technician: Davian Holloway III, M.D. [place] #[id number] By: #### XENIA, 14506-5, 35454-1, CBCA #### [facility] ([id number]) [address] [place], [place] [address]AWGNJ METABOLIC PANLon 16-17-0012Ilwgz gap [Moles/Vol]9 mmol/L Normal5-15Wayne HospitalComment on above:Performed By: #### XENIA, 94968-1, , CBCA #### [facility] ([id number]) [address] [facility] [place], [place] [address]Nepapsf [Mass/Vol]9.9 mg/dLNormal8.5-10.5PFort Hamilton HospitalComment on above:Performed By: #### XENIA, 04654-7, , CBCA #### [facility] ([id number]) [address] [place], [place] [address]Owlofkti [Moles/Vol]112 mmol/OFkwe27-308HmiYseybrSouthwest General Health CenterComment on above:Performed By: #### XENIA, 91187-1, , CBCA #### [facility] ([id number]) [address] [place], [place] [address]PC3 [Moles/Vol]17 mmol/WAlw17-31ElxEtasycFort Hamilton Hospital Comment on above:Performed By: #### XENIA, 87327-3, , CBCA #### [facility] ([id number]) [address] [facility] [place], [place] [address]Mctuooasuk [Mass/Vol]0.68 mg/dLNormal0.40-1.00Wayne HospitalComment on above:Result Comment: METHOD TRACEABLE TO IDMS STANDARD Performed By: #### XENIA, 28207-2, , CBCA #### [facility] ([id number]) [address] [facility] [place], [place] [address]mQEY (CKD-EPI) NON-RACE DEPENDENT>90Normal>59ProSouthwest General Health CenterComment on above:Result Comment: Reported eGFR is based on the CKD-EPI 2020 equation that does not use a race coefficient.Performed By: #### XENIA, 38834-3, , CBCA #### [facility] ([id number]) [address] [place], [place] [address]Cgtatsr [Mass/Vol]134 mg/pLUpyu30-17KbzQecppzSouthwest General Health Center Comment on above:Performed By: #### XENIA, 73957-6, , CBCA #### [facility] ([id number]) [address] [facility] [place], [place] [address]Oioihongh [Moles/Vol]4.2 mmol/LNormal3.5-5.0ProSouthwest General Health CenterComment on above:Performed By: #### XENIA, 47379-5, , CBCA #### [facility] ([id number]) [address] [place], [place] [address]Jqsapa [Moles/Vol]138 mmol/RUsvdcg649-964XwdSrvojd Baypark HospitalComment on above:Performed By: #### XENIA, 04915-9, , CBCA #### [facility] ([id number]) [address] [place], [place] [address]Hgxn nitrogen [Mass/Vol]15 mg/dLNormal5-23ProSouthwest General Health CenterComment on above:Performed By: #### XENIA, 81539-8, , CBCA #### [facility] ([id number]) [address] [place], [place] [address]LWK AND AUTO DIFFon 93-44-6124ZZGZBYPE BASOPHIL0.1 X10E9/LNormal 0.0-0.2ProMedica Santiam HospitalComment on above:Performed By: #### XENIA, 99219- 0, , CBCA #### [facility] ([id number]) [address] [place], [place] [address]ZASUOFXF NEUTROPHIL5.1 X10E9/LNormal1.5-6.6ProSouthwest General Health CenterComment on above:Performed By: #### XENIA, 41243-3, , CBCA #### [facility] ([id number]) [address] [place], [place] [address]Cegimkgcn/100 WBC (Bld)1.0 %NormalWayne Hospital Comment on above:Performed By: #### XENIA, 10214-1, , CBCA #### [facility] ([id number]) [address] [facility] [place] [place], [place] [address]Wmcxpejiuai (Bld) [#/Vol]0.0 10*3/uLNormal0.0-0.4ProSouthwest General Health CenterComment on above:Performed By: #### XENIA, 94217-8, , CBCA #### [facility] ([id number]) [address] [place], [place] [address]Iagjgyibvra/100 WBC (Bld)0.5 %NormalWayne Hospital Comment on above:Performed By: #### XENIA, 91294-5, , CBCA #### [facility] ([id number]) [address] [place], [place] [address]Hpiuxjrwdht distribution width (RBC) [Ratio]17.4 %High11.5-15.0 ProMedica Santiam HospitalComment on above:Performed By: #### XENIA, 15100-1, 98661-6, CBCA #### [facility] ([id number]) [address] [place], [place] [address]Kmeqnarozk (Bld) [Volume fraction]31.9 %Wez65-33TkwWlmpvjWayne HospitalComment on above:Performed By: #### CMP, 28299-6, 86765-4, CBCA #### [facility] ([id number]) [address] [place], [place] [address]Thxxsmfcrm (Bld) [Mass/Vol]9.8 g/dLLow11.7-15.5PFort Hamilton HospitalComment on above:Performed By: #### CMP, 21854-3, , CBCA #### [facility] ([id number]) [address] [facility] [place], [place] [address]Mbjgmwpdatp (Bld) [#/Vol]2.5 10*3/uLNormal1.0-3.5PFort Hamilton HospitalComment on above:Performed By: #### CMP, 43132-5, , CBCA #### [facility] ([id number]) [address] [place], [place] [address]Gyxpwciyuwv/100 WBC (Bld)28.0 %NormalWayne Hospital Comment on above:Performed By: #### CMP, 77555-9, 46112-7, CBCA #### [facility] ([id number]) [address] [place], [place] [address]OEX (RBC) [Entitic mass]27.0 awShoatv79-46TexZgzphwWayne HospitalComment on above:Performed By: #### CMP, 58833-1, 33747-5, CBCA #### [facility] ([id number]) [address] [place], [place] [address]FLIH (RBC) [Mass/Vol]30.8 g/wKJog21-14RpqLooibeWayne Hospital Comment on above:Performed By: #### CMP, 56626-9, 90012-6, CBCA #### [facility] ([id number]) [address] [facility] [place], [place] [address]MTZ (RBC) [Entitic vol]88 dVHhawpo95-947YkcJbrfrw [facility]park HospitalComment on above:Performed By: #### CMP, 49128-0, 32790-8, CBCA #### [facility] ([id number]) [address] [facility] [place], [place] [address]Mgzzrhgpl (Bld) [#/Vol]1.1 10*3/uLHigh0-0.9ProSouthwest General Health CenterComment on above:Performed By: #### CMP, 08806-7, 04840-6, CBCA #### [facility] ([id number]) [address] [place], [place] [address]Egdiqppkm/100 WBC (Bld)12.1 %NormalWayne Hospital Comment on above:Performed By: #### CMP, 28970-3, 02087-5, CBCA #### [facility] ([id number]) [address] [place], [place] [address]Fljomqjssjv/100 WBC (Bld)58.4 %NormalWayne Hospital Comment on above:Performed By: #### CMP, 44736-7, , CBCA #### [facility] ([id number]) [address] [place], [place] [address]Tbrqfain mean volume (Bld) [Entitic vol]7.8 fLNormal7-12 ProMedicCommunity Regional Medical CenterComment on above:Performed By: #### CMP, 09749-4, 69092-4, CBCA #### [facility] ([id number]) [address] [place], [place] [address]Pnkrjdkor (Bld) [#/Vol]322 10*3/yGDzqhcf718-575KfkXwwklu [facility]park HospitalComment on above:Performed By: #### CMP, 95884-0, 69889-2, CBCA #### [facility] ([id number]) [address] [place], [place] [address]DDI COUNT3.64 X10E12/LLow3.80-5.20ProSouth[facility] General Health Center Comment on above:Performed By: #### XENIA, 08221-3, , CBCA #### [facility] ([id number]) [address] [place], [place] [address]MFE (Bld) [#/Vol]8.8 10*3/uLNormal4.0-11.0ProC[facility] HospitalComment on above:Performed By: #### XENIA, 71045-6, , CBCA #### [facility] ([id number]) [address] [place], [place] [address]JYJBVTYUUMJVT METABOLIC PANELon 20-66-8428Bpxiyio [Mass/Vol]2.9 g/dLLow3.2-5.3ProMedDayton VA Medical Center HospitalComment on above:Performed By: #### XENIA, 14611-8, , CBCA #### [facility] ([id number]) [address] [place], [place] [address]DYC [Catalytic activity/Vol]52 U/ZVovpkm94-032GkkCsutwlSouthwest General Health CenterComment on above:Performed By: #### XENIA, 70543-9, , CBCA #### [facility] ([id number]) [address] [place], [place] [address]UCB [Catalytic activity/Vol]21 U/LNormal0-31ProMedTriHealth Good Samaritan HospitalComment on above:Performed By: #### XENIA, 70568-4, , CBCA #### [facility] ([id number]) [address] [place], [place] [address]Vzlow gap [Moles/Vol]8 mmol/LNormal5-15ProC[facility] HospitalComment on above:Performed By: #### XENIA, 36519-9, , CBCA #### [facility] ([id number]) [address] [place], [place] [address]MHE [Catalytic activity/Vol]22 U/LNormal0-41ProC[facility] HospitalComment on above:Performed By: #### CMP, 21272-1, , CBCA #### [facility] ([id number]) [address] [place], [place] [address]Ukpbotfeg [Mass/Vol]0.8 mg/dLNormal0.3-1.2PFort Hamilton HospitalComment on above:Performed By: #### CMP, 65054-8, , CBCA #### [facility] ([id number]) [address] [place], [place] [address]Vlwcrpy [Mass/Vol]9.4 mg/dLNormal8.5-10.5PFort Hamilton HospitalComment on above:Performed By: #### XENIA, 12605-7, , CBCA #### [facility] ([id number]) [address] [place], [place] [address]Nffxlunu [Moles/Vol]117 mmol/GApkb93-498TopUqeoyjWayne HospitalComment on above:Performed By: #### XENIA, 26209-5, , CBCA #### [facility] ([id number]) [address] [facility] [place], [place] [address]VJ0 [Moles/Vol]18 mmol/BVlh85-69FeuSyniazFort Hamilton Hospital Comment on above:Performed By: #### XENIA, 47549-9, , CBCA #### [facility] ([id number]) [address] [place], [place] [address]Dhtsstguoa [Mass/Vol]0.59 mg/dLNormal0.40-1.00Wayne HospitalComment on above:Result Comment: METHOD TRACEABLE TO IDMS STANDARD Performed By: #### XENIA, 98797-5, , CBCA #### [facility] ([id number]) [address] [place], [place] [address]Aesggrn [Mass/Vol]90 mg/kXCridkv76-20WorLnwbnmWayne Hospital Comment on above:Performed By: #### CMP, 76115-1, 34120-2, CBCA #### [facility] ([id number]) [address] [place], [place] [address]Tlqcmxzfj [Moles/Vol]3.6 mmol/LNormal3.5-5.0ProSouthwest General Health CenterComment on above:Performed By: #### XENIA, 91884-1, , CBCA #### [facility] ([id number]) [address] [place], [place] [address]Syugiir [Mass/Vol]6.9 g/dLNormal6.0-8.0ProSouthwest General Health CenterComment on above:Performed By: #### XENIA, 76268-6, , CBCA #### [facility] ([id number]) [address] [place], [place] [address]Shwpab [Moles/Vol]143 mmol/WLqpdfz620-213YqsYoxeyh [facility] HospitalComment on above:Performed By: #### XENIA, 75065-7, , CBCA #### [facility] ([id number]) [address] [facility] [place], [place] [address]Mpkqjnf.ionized (Bld) [Moles/Vol]on 24-64-2716WCNJOXXO ICA5.5 mg/dLHigh4.5-5.3PFort Hamilton HospitalComment on above:Performed By: #### XENIA, 06956-9, , CBCA #### [facility] ([id number]) [address] [place], [place] [address]Kxnkkcw Glucometer (BldC) [Mass/Vol]on 67-76-4966Afpasua [Mass/Vol]87 mg/fATdyern96-19MjvUndzfxSouthwest General Health CenterGlucose [Mass/Vol]82 mg/jRTqzuwi91-43SnaEypcsvSouthwest General Health CenterGlucose [Mass/Vol]90 mg/kTHkvmra56-26 ProMedica Santiam HospitalMAGNESIUMon 81-44-8119Lqfahesvh [Mass/Vol]2.0 mg/dL Normal1.8-2.6ProSouthwest General Health CenterComment on above:Performed By: #### XENIA, 76120-7, , CBCA #### [facility] ([id number]) [address] [place], [place] [address]SODQLGEKWDgv 32-18-6562Qsnbpbpmv [Mass/Vol]3.4 mg/dLNormal 2.4-4.9Pro[address] Hospitalca [facility] HospitalComment on above:Performed By: #### XENIA, 91724- 0, , CBCA #### [facility] ([id number]) [address] [place], [place] [address]SCBUZMALBrr 80-13-9557Wyumnuwez [Moles/Vol]3.5 mmol/LNormal 3.5-5.0Pro[address] Hospitalca [facility] HospitalComment on above:Performed By: #### XENIA, 84021- 0, , CBCA #### [facility] ([id number]) [address] [place], [place] [address]Qflieovmc [Moles/Vol]3.7 mmol/LNormal3.5-5.0Pro[facility] HospitalComment on above:Performed By: #### XENIA, 55829-4, , CBCA #### [facility] ([id number]) [address] [place], [place] [address]CBVQCVZB BLOOD GASon 47-26-2487ILHQL'S TESTPassNormalProWilson Street Hospitalca [facility] HospitalComment on above:Performed By: #### ABG ####[facility] ([id number])[address] [place], [place] [address]HWPX,DEFICIT4.0 MMOL/LHigh 0.0-2.0Pro[address] Hospitalca [facility] HospitalComment on above:Performed By: #### ABG ####[facility] ([id number])[address] [place], [place] [address]Adop ajkamszessf96.6 [degF]Gcapae08.0Pro[address] Hospitalca [facility] HospitalComment on above: Performed By: #### ABG ####[facility] ([id number])[address] [place], [place] [address]JXL5 (Bld) [Moles/Vol]21.0 mmol/GLhu22-00NthQhlecu [facility] HospitalComment on above:Performed By: #### ABG ####[facility] ([id number])[address] [facility], [place] [address]POGJ. O2 CONC.40 %NormalProSouthwest General Health CenterComment on above:Performed By: #### ABG ####[facility] ([id number])[address] [facility], [place] [address]Crdqab (Bld) [Partial pressure]76 mm[Hg]Cti52-367XvnOlwxwuSouthwest General Health CenterComment on above:Performed By: #### ABG ####[facility] ([id number])[address] [facility], [place] [address]Pvdagf saturation in Blood95.0 %Normal>90ProSouthwest General Health Center Comment on above:Performed By: #### ABG ####[facility] ([id number])[address] [facility], [place] [address]BESUUX SOURCEVentNormalProSouthwest General Health CenterComment on above:Performed By: #### ABG ####[facility] ([id number])[address] [facility], [place] [address]RER417.0 JHCPLszxdr39-18 [facility] HospitalComment on above:Performed By: #### ABG ####[facility] ([id number])[address] [facility], [place] [address]sG (Bld)7.362 [pH]Normal7.350-7.450ProSouthwest General Health CenterComment on above:Performed By: #### ABG ####[facility] ([id number])[address] [facility] [place] [address]OLKTHB SITERBrachNormalLutheran Hospital HospitalComment on above:Performed By: #### ABG ####[facility] ([id number])[address] [place], [place] [address], [place] [address]VPZGMR TYPEARTERIALNormalProC[facility] HospitalComment on above:Performed By: #### ABG ####[facility] ([id number])[address] [place], [place] [address]DVMSS CULTUREon 85-59-2670Dkcbglkl identified Aer cx Nom (Bld)CULTURE RESULTS NO GROWTH 5 DAYSNormalProSouthwest General Health CenterBacteria identified Aer cx Nom (Bld)CULTURE RESULTS NO GROWTH 5 DAYSNormalProCleveland Clinic [facility] HospitalCBC AND AUTO DIFFon 04-23-2023 ABSOLUTE BASOPHIL0.0 X10E9/LNormal0.0-0.2Pro[facility] HospitalComment on above:Performed By: #### 89016-9, , 1987-08, 2275-07, CMP, CBCA ####[facility] ([id number])[address] [place], [place] [address]KGJMGCKJ NEUTROPHIL4.8 X10E9/LNormal1.5-6.6ProSouthwest General Health CenterComment on above: Performed By: #### 75915-9, , 1987-08, 2275-07, CMP, CBCA ####[facility] ([id number])[address] [place], [place] [address]Osqmpntim/100 WBC (Bld)0.5 %NormalProSouthwest General Health CenterComment on above:Performed By: #### 86529-5, , 1987-08, 2275-07, CMP, CBCA ####[facility] ([id number])[address] [place], [place] [address]Fwgkddsdnic (Bld) [#/Vol]0.1 10*3/uL Normal0.0-0.4ProC[facility] HospitalComment on above:Performed By: #### 04920-5, , 1987-08, 2275-07, CMP, CBCA ####[facility] ([id number])[address] [place], [place] [address]Ylclcrelreb/100 WBC (Bld)0.8 %Normal [facility] HospitalComment on above:Performed By: #### 28278-7, , 1987-08, 2275-07, CMP, CBCA ####[facility] ([id number])[address] [place], [place] [address]Xxcsgkuopbo distribution width (RBC) [Ratio]19.7 %High 11.5-15.0Wayne HospitalComment on above:Performed By: #### 84145-9, , 1987-08, 2275-07, CMP, CBCA ####[facility] ([facility]09 97690)[address] [place], [place] [address]Ggvtlqajzu (Bld) [Volume fraction]32.6 % Vjr10-32BrfYuqarlSouthwest General Health CenterComment on above:Performed By: #### 73242-3, , 1987-08, 2275-07, CMP, CBCA ####[facility] ([facility] 11644)[address] [place], [place] [address]Izgvlfpknm (Bld) [Mass/Vol]10.4 g/dLLow 11.7-15.5ProMedTriHealth Good Samaritan HospitalComment on above:Performed By: #### 43525-4, , 1987-08, 2275-07, CMP, CBCA ####[facility] ([id number])[address] [place], [place] [address]Nykyiyihedu (Bld) [#/Vol]1.5 10*3/uLNormal 1.0-3.5PFort Hamilton HospitalComment on above:Performed By: #### 97471-4, , 1987-08, 2275-07, CMP, CBCA ####[facility] ([id number])[address] [place], [place] [address]Szbijzitydn/100 WBC (Bld)20.9 %Normal ProMedicCommunity Regional Medical CenterComment on above:Performed By: #### 88302-3, , 1987-08, 2275-07, CMP, CBCA ####[facility] ([id number])[address] [place], [place] [address]MQQ (RBC) [Entitic mass]27.2 ziXoxobf85-32ZeyTovrdl [facility] HospitalComment on above:Performed By: #### 86117-7, , 1987-08, 2275-07, CMP, CBCA ####[facility] ([id number])[address] [place], [place] [address]AMBJ (RBC) [Mass/Vol]31.7 g/tPKct65-69DcaMwgpca [facility] HospitalComment on above:Performed By: #### 34263-1, , 1987-08, 2275-07, CMP, CBCA ####[facility] ([id number])[address] [place], [place] [address]XHK (RBC) [Entitic vol]86 tAUqrtjo03-395KtrEpafrd [facility] HospitalComment on above:Performed By: #### 98381-1, , 1987-08, 2275-07, CMP, CBCA ####[facility] ([id number])[address] [place], [place] [address]Brjdkwmlo (Bld) [#/Vol]0.7 10*3/uLNormal0-0.9Pro[facility] HospitalComment on above: Performed By: #### 74441-2, , 1987-08, 2275-07, CMP, CBCA ####[facility] ([id number])[address] [place], [place] [address]Pmpscxlnq/100 WBC (Bld)10.2 %NormalProC[facility] Clinic [facility] HospitalComment on above:Performed By: #### 92964-2, , 1987-08, 2275-07, CMP, CBCA ####[facility] ([id number])[address] [place], [place] [address]Rzkdhafjauc/100 WBC (Bld)67.6 % NormalProCleveland Clinic [facility] HospitalComment on above:Performed By: #### 04474-7, 0, 1987-08, 2275-07, CMP, CBCA ####[facility] ([id number])[address] [place], [place] [address]Dymvoebu mean volume (Bld) [Entitic vol] 8.1 fLNormal7-12Pro[facility] HospitalComment on above:Performed By: #### 00513-5, , 1987-08, 2275-07, CMP, CBCA ####[facility] ([id number])[address] [place], [place] [address]Xruphcddn (Bld) [#/Vol]362 10*3/uL Bftlpe016-503FntTajafzSouthwest General Health CenterComment on above:Performed By: #### 60343-0, , 1987-08, 2275-07, CMP, CBCA ####[facility] ([id number])[address] [place], [place] [address]SNQ COUNT3.81 X10E12/LNormal 3.80-5.20ProSouthwest General Health CenterComment on above:Performed By: #### 38640-1, , 1987-08, 2275-07, CMP, CBCA ####[facility] ([id number])[address] [place], [place] [address]KJL morphology finding Nom (Bld)NORMAL NormalProSouthwest General Health CenterComment on above:Performed By: #### 42051-1, , 1987-08, 2275-07, CMP, CBCA ####[facility] ([id number])[address] [place], [place] [address]CRA (Bld) [#/Vol]7.1 10*3/uLNormal4.0-11.0 [facility] HospitalComment on above:Performed By: #### 65713-1, , 1987-08, 2275-07, CMP, CBCA ####[facility] ([id number])[address] [place], [place] [address]VCTQBRXZMOHAQ METABOLIC PANELon 31-10-0091Sfjroni [Mass/Vol]3.0 g/dLLow3.2-5.3PFort Hamilton HospitalComment on above:Performed By: #### 00286-7, , 1987-08, 2275-07, CMP, CBCA ####[facility] ([id number])[address] [facility] [place], [place] [address]NHF [Catalytic activity/Vol]62 U/RUzvboh33-136VruLsmosiSouthwest General Health CenterComment on above: Performed By: #### 75402-4, , 1987-08, 2275-07, CMP, CBCA ####[facility] ([id number])[address] [place], [place] [address]GCB [Catalytic activity/Vol]18 U/LNormal0-31PFort Hamilton HospitalComment on above: Performed By: #### 77874-2, , 1987-08, 2275-07, CMP, CBCA ####[facility] ([id number])[address] [facility] [place], [place] [address]Kdnln gap [Moles/Vol]5 mmol/LNormal5-15ProSouthwest General Health CenterComment on above: Performed By: #### 46398-0, , 1987-08, 2275-07, CMP, CBCA ####[facility] ([id number])[address] [facility] [place], [place] [address]NCV [Catalytic activity/Vol]18 U/LNormal0-41ProSouthwest General Health CenterComment on above: Performed By: #### 13667-2, , 1987-08, 2275-07, CMP, CBCA ####[facility] ([id number])[address] [place], [place] [address]Rpwkglszj [Mass/Vol]0.6 mg/dLNormal0.3-1.2PFort Hamilton HospitalComment on above: Performed By: #### 91296-7, , 1987-08, 2275-07, CMP, CBCA ####[facility] ([id number])[address] [place], [place] [address]Idajvfu [Mass/Vol]9.8 mg/dLNormal8.5-10.5PFort Hamilton HospitalComment on above: Performed By: #### 80036-4, , 1987-08, 2275-07, XENIA, CBCA ####[facility] ([id number])[address] [place], [place] [address]Wzdtkype [Moles/Vol]118 mmol/BVtal75-351SnjWidcxxSouthwest General Health CenterComment on above: Performed By: #### 67393-6, , 1987-08, 2275-07, XENIA, CBCA ####[facility] ([id number])[address] [place], [place] [address]OA3 [Moles/Vol]23 mmol/KNxqdny09-65NbxNjpxxeFort Hamilton HospitalComment on above:Performed By: #### 88455-9, , 1987-08, 2275-07, XENIA, ANNA ####[facility] ([id number])[address] [place], [place] [address]Vhnemvnckv [Mass/Vol]0.69 mg/dL Normal0.40-1.00ProSouthwest General Health CenterComment on above:Result Comment: METHOD TRACEABLE TO IDMS STANDARDPerformed By: #### 40098-2, , 1987-08, 2275-07, XENIA, CBCMindi ####[facility] ([id number])[address] [place], [place] [address]cPHZ (CKD-EPI) NON-RACE DEPENDENT>90Normal>59ProSouthwest General Health Center Comment on above:Result Comment: Reported eGFR is based on the CKD-EPI 2020 equation that does not use a race coefficient.Performed By: #### 51664-6, , 1987-08, 2275-07, CMP, CBCA ####[facility] ([id number])[address] [place], [place] [address]Qnaewys [Mass/Vol]134 mg/hYOafx15-36MpyIbeoogSouthwest General Health CenterComment on above:Performed By: #### 80689-6, , 1987-08, 2275-07, CMP, CBCA ####[facility] ([id number])[address] [place], [place] [address]Bkcrgakau [Moles/Vol]3.4 mmol/LLow3.5-5.0ProSouthwest General Health CenterComment on above: Performed By: #### 99337-6, , 1987-08, 2275-07, CMP, CBCA ####[facility] ([id number])[address] [place], [place] [address]Odiazxc [Mass/Vol]7.4 g/dLNormal6.0-8.0ProSouthwest General Health CenterComment on above: Performed By: #### 23633-3, , 1987-08, 2275-07, CMP, CBCA ####[facility] ([id number])[address] [place], [place] [address]Twntne [Moles/Vol]146 mmol/KGvnimp905-852RckMudsid [facility] HospitalComment on above: Performed By: #### 09669-8, , 1987-08, 2275-07, CMP, CBCA ####[facility] ([id number])[address] [place], [place] [address]Fkwj nitrogen [Mass/Vol]20 mg/dLNormal5-23ProSouthwest General Health CenterComment on above:Performed By: #### 70782-0, , 1987-08, 2275-07, CMP, CBCA ####[facility] ([id number])[address] [place], [place] [address]LQA [Mass/Vol]on 04-23-2023 C REACTIVE PROTEIN3.4 mg/dLHigh0.000-0.744PFort Hamilton HospitalComment on above:Performed By: #### 86540-1, , 1987-08, 2275-07, CMP, CBCA ####[facility] ([id number])[address] [place], [place] [address]KJYQLUKPzf 34-99-8309Jlcmuwla [Mass/Vol]41 ng/hOHutqgb10-928FgqCijeufWayne Hospital Comment on above:Performed By: #### 60789-0, , 1987-08, 2275-07, ANNA MICHAELS ####[facility] ([id number])[address] [place] [address] Fibrin D-dimer DDU (PPP) [Mass/Vol]on 3D BPLZG526 ng/mL DDUHigh<255 Wayne HospitalComment on above:Result Comment: Results >=255ng/mL DDU: Results may be indicative of the presence of VTE. The use of the Wells score and further diagnostic tests should be considered. Elevated D-Dimer levels can also be associated with DIC, neoplasm, , trauma and liver disease. Elevated levels of rheumatoid factor may lead to an overestimation of the D-Dimer level.Performed By: #### 72947-9, , 1987-08, 2275-07, XENIA, ANNA ####[facility] ([id number])[address] [place], [place] [address]Lygryiv Glucometer (BldC) [Mass/Vol]on 28-35-9005Zjbaiwb [Mass/Vol]129 mg/eAImsl31-76GadVjhcuzWayne HospitalGlucose [Mass/Vol]96 mg/dL Vkloqu30-14ReuAlvnpuWayne HospitalGlucose [Mass/Vol]136 mg/tQGyfg19-06 [facility] HospitalGlucose [Mass/Vol]127 mg/gGUdea55-75KqzXdslonWayne HospitalGlucose [Mass/Vol]115 mg/sCYcqv49-85YcxFxrrpkWayne HospitalLDH [Catalytic activity/Vol]on 24-51-6488BIU351 U/NEmzmax474-095TetIhmpysWayne HospitalComment on above:Performed By: #### 40292-3, , 1987-08, 2275-07, XENIA, CBCA ####[facility] ([id number])[address] [place], [place] [address]DKIDT RESPIRATORY CULTUREon 59-68-6739Rdosledb identified Respiratory culture Nom (Sput)GRAM STAIN 10 to 24 WHITE BLOOD CELLS/LPF [...] PIPERACIL/TAZOBACTAM S 16 F TOBRAMYCIN S <=1 FSusceptibleProSouthwest General Health CenterComment on above: Performed By: #### XENIA, 65052-6, 13409-0, CBCA #### [facility] ([id number]) [address] [facility] [place], [place] [address]OGTSIVNPNvh 73-36-2003Jhekvwjlt [Moles/Vol]3.7 mmol/LNormal 3.5-5.0ProSouthwest General Health CenterComment on above:Performed By: #### XENIA, 08440- 0, 84492-9, CBCA #### [facility] ([id number]) [address] [facility] [place], [place] [address]BW CHEST 1 VWon 80-35-9066KT CHEST 1 VWXR CHEST 1 VW Single view chest History: Difficulty breathing, shortness of breath Comparison: 04/22/2023 Impression: 1. Unchanged endotracheal tube, gastric drainage tube, sternotomy, left IJ catheter [terminating near the upper SVC]. 2. Unchanged central pulmonary vascular congestion without overt pulmonary edema. Confluent opacityright basilar region, favor atelectasis. No new or growing airspace opacity. No pneumothorax or pleural effusion. 3. Borderline cardiomegaly Finalized by Alli Bateman MD on 04/23/2023 6:11 AMNormalProDayton Osteopathic Hospital AND AUTO DIFFon 35-74-1425Tqvaqgxdexe (Bld) [#/Vol]0.1 10*3/uLNormal 0.0-0.4Wayne HospitalComment on above:Performed By: #### 624-7 #### [facility] ([id number]) [address], [address] [place], [place] [address]Ajlghgjdkke/100 WBC (Bld)1.0 %NormalLutheran Hospital Hospital Comment on above:Performed By: #### 624-7 #### [facility] ([id number]) [address], [address] [place], [place] [address]Pytmazvkanh distribution width (RBC) [Ratio]20.5 %High11.5-15.0 Wayne HospitalComment on above:Performed By: #### 624-7 #### [facility] ([id number]) [address], [address] [place], [place] [address]Nbcthqnkfn (Bld) [Volume fraction]34.1 %Iev34-14YiaRbeazpWayne HospitalComment on above:Performed By: #### 624-7 #### [facility] ([id number]) [address], [address] [place], [place] [address]Folkiwfmvk (Bld) [Mass/Vol]10.8 g/dLLow11.7-15.5PFort Hamilton HospitalComment on above:Performed By: #### 624-7 #### [facility] ([id number]) [address], [address] [place], [place] [address]CQBYHANDPJ, ATYPICAL2.0 %NormalWayne HospitalComment on above:Performed By: #### 624-7 #### [facility] ([id number]) [address], [address] [place], [place] [address]Ojolcdkjkyv (Bld) [#/Vol]2.0 10*3/uLNormal1.0-3.5PFort Hamilton HospitalComment on above:Performed By: #### 624-7 #### [facility] ([id number]) [address], [address] [place] [address]Zvwqixeirxd/100 WBC (Bld)26.5 %NormalWayne Hospital Comment on above:Performed By: #### 624-7 #### [facility] ([id number]) [address], [address] [place], [place] [address]QZH (RBC) [Entitic mass]26.9 ieAxj74-48VnpAtlcwcWayne HospitalComment on above:Performed By: #### 624-7 #### [facility] ([id number]) [address], [address] [place], [place] [address]KVZE (RBC) [Mass/Vol]31.6 g/eYThi84-15GhuHsrlmdWayne Hospital Comment on above:Performed By: #### 624-7 #### [facility] ([id number]) [address], [address] [place], [place] [address]ZBJ (RBC) [Entitic vol]85 lXDgxdbk10-502DawImsovcWayne HospitalComment on above:Performed By: #### 624-7 #### [facility] ([id number]) [address], [address] [place], [place] [address]Qyluzkkyr (Bld) [#/Vol]0.9 10*3/uLNormal0-0.9Wayne HospitalComment on above:Performed By: #### 624-7 #### [facility] ([id number]) [address], [address] [place], [place] [address]Gutneoluu/100 WBC (Bld)12.7 %NormalWayne Hospital Comment on above:Performed By: #### 624-7 #### [facility] ([id number]) [address], [address] [place], [place] [address]Uewqvudrxbz (Bld) [#/Vol]4.2 10*3/uLNormal1.5-6.6ProSouthwest General Health CenterComment on above:Performed By: #### 624-7 #### [facility] ([id number]) [address], [address] [place] [address]EYMHUULJZ RBC1.0 /100 WBCNormal0.0-1.0Way[facility] Hospital Comment on above:Performed By: #### 624-7 #### [facility] ([id number]) [address], [address] [place], [place] [address]Dtusvacd mean volume (Bld) [Entitic vol]7.8 fLNormal7-12 ProMSumma Health Barberton CampusComment on above:Performed By: #### 624-7 #### [facility] ([id number]) [address], [address] [place], [place] [address]Taokosymq (Bld) [#/Vol]370 10*3/hXStjizr113-568ZgyZdtkiy [facility] HospitalComment on above:Performed By: #### 624-7 #### [facility] ([id number]) [address], [address] [place], [place] [address]REYTJWFBPMQPK3+AbnormalNONEProMedica [facility] HospitalComment on above:Performed By: #### 624-7 #### [facility] ([id number]) [address], [address] [place], [place] [address]CEC COUNT4.00 X10E12/LNormal3.80-5.20[facility] Comment on above:Performed By: #### 624-7 #### [facility] ([id number]) [address], [address] [place], [place] [address]FGF FRRRSCTOTP37.8 %NormalProCleveland Clinic [facility] HospitalComment on above:Performed By: #### 624-7 #### [facility] ([id number]) [address], [address] [place] [address]NLO (Bld) [#/Vol]7.3 10*3/uLNormal4.0-11.0ProC[facility] Clinic [facility] HospitalComment on above:Performed By: #### 624-7 #### [facility] ([id number]) [address], [address] [place] [address]MPGMUBNMXCWWF METABOLIC PANELon 20-62-0524Fophsyy [Mass/Vol]3.0 g/dLLow3.2-5.3PPremier Health [facility] HospitalComment on above:Performed By: #### 624- 7 #### [facility] ([id number]) [address], [address] [place] [address]OMS [Catalytic activity/Vol]68 U/FYwknex78-734KebUyyvxh [facility] HospitalComment on above:Performed By: #### 624-7 #### [facility] ([id number]) [address], [address] [place] [address]DBY [Catalytic activity/Vol]16 U/LNormal0-31PPremier Health [facility] HospitalComment on above:Performed By: #### 624-7 #### [facility] ([id number]) [address], [address] [place] [address]Etkep gap [Moles/Vol]11 mmol/LNormal5-15ProC[facility] HospitalComment on above:Performed By: #### 624-7 #### [facility] ([id number]) [address], [address] [place] [address]BHY [Catalytic activity/Vol]18 U/LNormal0-41ProC[facility] HospitalComment on above:Performed By: #### 624-7 #### [facility] ([id number]) [address], [address] [place], [place] [address]Ydojpytyt [Mass/Vol]0.5 mg/dLNormal0.3-1.2PFort Hamilton HospitalComment on above:Performed By: #### 624-7 #### [facility] ([id number]) [address], [address] [place], [place] [address]Atxkvzo [Mass/Vol]9.5 mg/dLNormal8.5-10.5PFort Hamilton HospitalComment on above:Performed By: #### 624-7 #### [facility] ([id number]) [address], [facility] [address] [place], [place] [address]Dpjpmadw [Moles/Vol]113 mmol/ROmyu14-194IeiAusxsnSouthwest General Health CenterComment on above:Performed By: #### 624-7 #### [facility] ([id number]) [address], [facility] [address] [place], [place] [address]SD1 [Moles/Vol]22 mmol/OEcupuv97-92BdpGxfxzgFort [facility] Comment on above:Performed By: #### 624-7 #### [facility] ([id number]) [address], [facility] [address] [place], [place] [address]Uvwlcetwpa [Mass/Vol]0.85 mg/dLNormal0.40-1.00ProSouthwest General Health CenterComment on above:Result Comment: METHOD TRACEABLE TO IDMS STANDARD Performed By: #### 624-7 #### [facility] ([id number]) [address], [address] [place] [address]BNG/1.73 sq M.predicted among non-blacks MDRD (S/P/Bld) [Vol rate/Area]78 mL/min/{1.73_m2}Normal>59ProSouthwest General Health CenterComment on above:Result Comment: Reported eGFR is based on the CKD-EPI 2020 equation that does not use a race coefficient.Performed By: #### 624-7 #### [facility] ([id number]) [address], [address] [place], [place] [address]Wrexntg [Mass/Vol]107 mg/cIFdha81-75KqwOnbaewWayne Hospital Comment on above:Performed By: #### 624-7 #### [facility] ([id number]) [address] [place], [place] [address]Xkvhwjhwf [Moles/Vol]3.3 mmol/LLow3.5-5.0ProSouthwest General Health CenterComment on above:Performed By: #### 624-7 #### [facility] ([id number]) [address], [address] [place], [place] [address]Zcifiso [Mass/Vol]7.6 g/dLNormal6.0-8.0ProSouthwest General Health CenterComment on above:Performed By: #### 624-7 #### [facility] ([id number]) [address], [address] [place], [place] [address]Ktuvkp [Moles/Vol]146 mmol/EJlutfn618-827GfbDlzmkp [facility] HospitalComment on above:Performed By: #### 624-7 #### [facility] ([id number]) [address], [address] [place], [place] [address]Drgb nitrogen [Mass/Vol]22 mg/dLNormal5-23ProSouthwest General Health CenterComment on above:Performed By: #### 624-7 #### [facility] ([id number]) [address], [address] [place], [place] [address]Ppjytoi Glucometer (BldC) [Mass/Vol]on 04-29-8428Huwdwdm [Mass/Vol]149 mg/iULvet23-12CjrTryunbWayne HospitalGlucose [Mass/Vol]126 mg/kHVygb31-85NytZvpcntSouthwest General Health CenterGlucose [Mass/Vol]109 mg/hRRvmw60-35 [facility] HospitalGlucose [Mass/Vol]103 mg/zFCfqd89-63JzzCfcvmeSouthwest General Health CenterPOTASSIUMon 51-01-60[address]Umhfezlhu [Moles/Vol]3.8 mmol/LNormal3.5-5.0 Wayne HospitalComment on above:Performed By: #### 624-7 #### [facility] ([id number]) [address], [address] [place], [place] [address]Xgsnkajfd [Moles/Vol]3.3 mmol/LLow3.5-5.0Wayne HospitalComment on above:Performed By: #### 624-7 #### [facility] ([id number]) [address], [address] [place], [place] [address]ERSHUGYNRXILcx 51-02-69[address]Rluqjdbjwgbj [Mass/Vol]510 mg/dLHigh 27-150ProSouthwest General Health CenterComment on above:Performed By: #### 624-7 #### [facility] ([id number]) [address] [place], [place] [address]PI CHEST 1 VWon 45-52-2419UD CHEST 1 VWXR CHEST 1 VW Single view chest History: Difficulty breathing, shortness of breath. Comparison: 04/21/2023 Findings: ET tube tip approximately 4 cm above the miki. Enteric tube tip over the stomach. Looped configuration left IJ catheter, correlate with function, tip over the proximal SVC. Stable cardiomediastinalsilhouette. Median sternotomy. Patchy/nodular opacity over the right midlung zone laterally. Perihilar and bibasilar atelectasis, suspect trace effusions. No pneumothorax. Impression: 1. Persistent linear/patchy perihilar and bibasilar airspace opacities; correlate with any ongoing edema, atelectasis, and/or pneumonia. 2. Support devices as above Finalized by Victor Hugo Gustafson MD on 04/22/2023 6:14 AMNormalProSouthwest General Health CenterCB AND AUTO DIFFon 13-83-0394ZILCNYKZ BASOPHIL0.0 X10E9/LNormal0.0-0.2 [facility] HospitalComment on above:Performed By: #### 2571-8 ####[facility] ([id number])[address] [facility], [address], [place] [address]#### CMP, CBCA ####[facility] ([id number])[address] [place], [place] [address]ZVTUGSEZ NEUTROPHIL4.3 X10E9/LNormal1.5-6.6ProWilson [address] Hospitalca [facility] Comment on above:Performed By: #### 2571-8 ####[facility] ([id number])[address] [facility], [address], [place] [address]#### CMP, CBCA ####[facility] ([id number])[address] [place], [place] [address]Wxyxvclqb/100 WBC (Bld)0.4 %NormalProSouthwest General Health CenterComment on above:Performed By: #### 2571-8 ####[facility] ([id number])[address] [facility], [address], [place] [address]#### CMP, CBCA ####[facility] ([id number])[address] [place], [place] [address]Hqxchmpvzwl (Bld) [#/Vol]0.1 10*3/uL Normal0.0-0.4ProSouthwest General Health CenterComment on above:Performed By: #### 2571- 8 ####[facility] ([id number])[address], [place] [address]#### CMP, CBCA ####[facility] ([id number])[address] [place], [place] [address]Ohirpbuwlmr/100 WBC (Bld)1.2 %NormalProSouthwest General Health CenterComment on above:Performed By: #### 2571-8 ####[facility] ([id number])[address] [facility], [address], [place] [address]#### CMP, CBCA ####[facility] ([id number])[address] [place], [place] [address]Eiwfobwgisg distribution width (RBC) [Ratio]20.6 %High11.5-15.0[facility] Comment on above:Performed By: #### 2571-8 ####[facility] ([id number])[address] [facility], [address] [place] [address]#### CMP, CBCA ####[facility] ([id number])[address] [place], [place] [address]Ozgqirgafq (Bld) [Volume fraction]31.6 %Vxg39-36WgdKtdhavSouthwest General Health CenterComment on above: Performed By: #### 2571-8 ####[facility] ([id number])[address] [facility], [address] [place] [address]#### CMP, CBCA ####[facility] ([id number])[address] [place], [place] [address]Dgakgrifvx (Bld) [Mass/Vol] 10.1 g/dLLow11.7-15.5PFort Hamilton HospitalComment on above:Performed By: #### 2571-8 ####[facility] ([id number])[address] [facility], [address] [place] [address]#### CMP, CBCA ####[facility] ([id number])[address] [place], [place] [address]Pftyfujwilj (Bld) [#/Vol]1.3 10*3/uL Normal1.0-3.5PFort Hamilton HospitalComment on above:Performed By: #### 2571- 8 ####[facility] ([id number])[address] [facility], [address] [place] [address]#### CMP, CBCA ####[facility] ([id number])[address] [place], [place] [address]Mvfxbfcgodx/100 WBC (Bld)21.1 %NormalProCleveland Clinic [facility] HospitalComment on above:Performed By: #### 2571-8 ####[facility] ([id number])[address], [address] [place] [address]#### CMP, CBCA ####[facility] ([id number])[address] [place], [place] [address]XJI (RBC) [Entitic mass]27.2 izZbywqa85-61UflNhbruv [facility] HospitalComment on above: Performed By: #### 2571-8 ####[facility] ([id number])[address] [facility], [address] [place] [address]#### CMP, CBCA ####[facility] ([id number])[address] [place], [place] [address]WLXI (RBC) [Mass/Vol]32.1 g/wPIqeipz04-33TdxTspako [facility] HospitalComment on above:Performed By: #### 2571-8 ####[facility] ([id number])[address], [address] [place] [address]#### CMP, CBCA ####[facility] ([id number])[address] [place], [place] [address]JZO (RBC) [Entitic vol]85 fLNormal 80-100ProC[facility] HospitalComment on above:Performed By: #### 2571-8 ####[facility] ([id number])[address] [address] [place] [address]#### CMP, CBCA ####[facility] ([id number])[address] [place], [place] [address]Anpdvbava (Bld) [#/Vol]0.5 10*3/uLNormal0-0.9ProC[facility] HospitalComment on above:Performed By: #### 2571-8 ####[facility] ([id number])[address], [place] [address]#### CMP, CBCA ####[facility] ([id number])[address] [place] [address] Monocytes/100 WBC (Bld)8.3 %NormalProSouthwest General Health CenterComment on above: Performed By: #### 2571-8 ####[facility] ([id number])[address], [place] [address]#### CMP, CBCA ####[facility] ([id number])[address] [place], [place] [address]Ksujgbtiuzm/100 WBC (Bld) 69.0 %NormalWayne HospitalComment on above:Performed By: #### 2571-8 ####[facility] ([id number])[address], [place] [address]#### CMP, CBCA ####[facility] ([id number])[address] [facility], [place] [address]Qqdojdyz mean volume (Bld) [Entitic vol]7.7 fLNormal7-12 [facility] HospitalComment on above:Performed By: #### 2571-8 ####[facility] ([id number])[address], [place] [address]#### CMP, CBCA ####[facility] ([id number])[address] [facility], [place] [address]Oduupgjhx (Bld) [#/Vol]349 10*3/nGJgdpre167-413UvcKkuydl [facility] Comment on above:Performed By: #### 2571-8 ####[facility] ([id number])[address], [place] [address]#### CMP, CBCA ####[facility] ([id number])[address] [facility], [place] [address]KTS COUNT3.73 X10E12/LLow3.80-5.20ProSouthwest General Health CenterComment on above:Performed By: #### 2571-8 ####[facility] ([id number])[address] [facility], [address] [place] [address]#### CMP, CBCA ####[facility] ([id number])[address] [place], [place] [address]PMU morphology finding Nom (Bld) REVIEWEDNormalProSouthwest General Health CenterComment on above:Performed By: #### 2571-8 ####[facility] ([id number])[address] [facility], [address] [place] [address]#### CMP, CBCA ####[facility] ([id number])[address] [place], [place] [address]PUJ (Bld) [#/Vol]6.2 10*3/uLNormal 4.0-11.0ProSouthwest General Health CenterComment on above:Performed By: #### 2571-8 ####[facility] ([id number])[address] [facility], [address] [place] [address]#### CMP, CBCA ####[facility] ([id number])[address] [place], [place] [address]YVOHAMUNKYSDM METABOLIC PANELon 25-47-4532Momchgc [Mass/Vol] 2.7 g/dLLow3.2-5.3Pro[facility]ica [facility] HospitalComment on above:Performed By: #### 2571-8 ####[facility] ([id number])[address] [facility], [address], [place] [address]#### CMP, CBCA ####[facility] ([id number])[address] [place], [place] [address]QDS [Catalytic activity/Vol]63 U/L Ybqssb57-650FolZkbegsSouthwest General Health CenterComment on above:Performed By: #### 2571-8 ####[facility] ([id number])[address] [place] [address]#### CMP, CBCA ####[facility] ([id number])[address] [place], [place] [address]RPF [Catalytic activity/Vol]14 U/LNormal0-31ProMedTriHealth Good Samaritan HospitalComment on above:Performed By: #### 2571-8 ####[facility] ([id number])[address] [facility], [address], [place] [address]#### CMP, CBCA ####[facility] ([id number])[address] [facility] [place], [place] [address]Jkwzy gap [Moles/Vol]7 mmol/LNormal5-15ProSouthwest General Health CenterComment on above: Performed By: #### 2571-8 ####[facility] ([id number])[address] [facility], [address] [place] [address]#### CMP, CBCA ####[facility] ([id number])[address] [facility] [place], [place] [address]VSU [Catalytic activity/Vol]16 U/LNormal0-41ProSouthwest General Health CenterComment on above: Performed By: #### 2571-8 ####[facility] ([id number])[address] [facility], [address] [place] [address]#### CMP, CBCA ####[facility] ([id number])[address] [facility] [place], [place] [address]Ftarndjue [Mass/Vol]0.7 mg/dLNormal0.3-1.2[facility] HospitalComment on above:Performed By: #### 2571-8 ####[facility] ([id number])[address] [facility], [address], [place] [address]#### CMP, CBCA ####[facility] ([id number])[address] [facility] [place], [place] [address]Qwftnfs [Mass/Vol]8.2 mg/dLLow 8.5-10.5PFort Hamilton HospitalComment on above:Performed By: #### 2571-8 ####[facility] ([id number])[address] [facility], [address] [place] [address]#### CMP, CBCA ####[facility] ([id number])[address] [place], [place] [address]Btaeinmb [Moles/Vol]115 mmol/NTuxq33-405TprSuzjvlSouthwest General Health CenterComment on above:Performed By: #### 2571-8 ####[facility] ([id number])[address] [facility] [address], [place] [address]#### CMP, CBCA ####[facility] ([id number])[address] [place], [place] [address]GM1 [Moles/Vol]23 mmol/DSkuekl73-39JftSbzpbmFort Hamilton HospitalComment on above: Performed By: #### 2571-8 ####[facility] ([id number])[address] [facility], [address] [place] [address]#### CMP, CBCA ####[facility] ([id number])[address] [place], [place] [address]Gjbtuifenz [Mass/Vol]0.77 mg/dLNormal0.40-1.00ProSouthwest General Health CenterComment on above:Result Comment: METHOD TRACEABLE TO IDIL STANDARDPerformed By: #### 2571-8 ####[facility] ([id number])[address] [facility] [address] [place] [address]#### CMP, CBCA ####[facility] ([id number])[address] [place] [address] GFR/1.73 sq M.predicted among non-blacks MDRD (S/P/Bld) [Vol rate/Area]88 mL/min/{1.73_m2}Normal>59ProSouthwest General Health CenterComment on above:Result Comment: Reported eGFR is based on the CKD-EPI 2020 equation that does not use a race coefficient.Performed By: #### 2571-8 ####[facility] ([id number])[address] [address], [place] [address]#### CMP, CBCA ####[facility] ([id number])[address] [place] [address] Glucose [Mass/Vol]100 mg/wUKrpi53-00RnvBomosrSouthwest General Health CenterComment on above: Performed By: #### 2571-8 ####[facility] ([id number])[address] [facility] [address], [place] [address]#### CMP, CBCA ####[facility] ([id number])[address] [facility], [place] [address]Jdzxqkfzi [Moles/Vol]4.1 mmol/LNormal3.5-5.0ProSouthwest General Health CenterComment on above:Performed By: #### 2571-8 ####[facility] ([id number])[address], [place] [address]#### CMP, CBCA ####[facility] ([id number])[address] [facility], [place] [address]Foedxqh [Mass/Vol]6.8 g/dLNormal 6.0-8.0ProSouthwest General Health CenterComment on above:Performed By: #### 2571-8 ####[facility] ([id number])[address] [address], [place] [address]#### CMP, CBCA ####[facility] ([id number])[address] [facility], [place] [address]Mbflmb [Moles/Vol]145 mmol/DBqqrfj370-372XdoRdvews Baypark HospitalComment on above:Performed By: #### 2571-8 ####[facility] ([id number])0 [address] [address], [place] [address]#### CMP, CBCA ####[facility] ([id number])2801 [place], [place] [address]Kvcd nitrogen [Mass/Vol]21 mg/dLNormal5-23Wayne HospitalComment on above: Performed By: #### 2571-8 ####[facility] ([id number])[address] [facility], [address] [place] [address]#### CMP, CBCA ####[facility] ([id number])2801 [place], [place] [address]Sntmoyt Glucometer (BldC) [Mass/Vol]on 44-41-8812Pttwwxr [Mass/Vol]170 mg/qPLafa17-68GlhYxmwmmWayne HospitalGlucose [Mass/Vol]102 mg/lJPfiv92-55DtuPjfpthSouthwest General Health CenterGlucose [Mass/Vol]93 mg/iYGgaldl85-85OozUrljuzWayne HospitalGlucose [Mass/Vol]115 mg/qBLrdh23-50BjkPohtojWayne HospitalTRIGLYCERIDEon 36-24-5582Ssosxbjczlub [Mass/Vol]422 mg/qKHiwm78-873GpsNisaveWayne HospitalComment on above: Performed By: #### 2571-8 ####[facility] ([id number])[address]130 [facility], [address] [place] [address]#### CMP, CBCA ####[facility] ([id number])2801 [place], [place] [address]BL CHEST 1 VWon 04-21-2023 XR CHEST 1 VWXR CHEST 1 VW Single view chest History:resp failure Difficulty breathing, shortness of breath Comparison: 04/20/2023 Findings: Single portable view of the chest. Degenerative and enteric catheter. Diminished penetration relative to body habitus and portable technique. Stable bilateral lower lung atelectasis. No obvious pneumothorax. Impression: Stable tubes and lines. Stable appearance of the chest. Finalized by Victor Hugo Kim MD on 04/21/2023 5:51 AMNormalProSouthwest General Health CenterCBC AND AUTO DIFFon 99-87-8875NHIIUQYB BASOPHIL0.0 X10E9/LNormal0.0-0.2 [facility]antiam HospitalComment on above:Performed By: #### CBCA, CMP ####[facility] ([id number])2801 [facility] [id number]#### 2571-8 ####[facility] ([id number])[address], [place] [address]MXORZYUZ NEUTROPHIL3.9 X10E9/LNormal1.5-6.6ProSouthwest General Health Center Comment on above:Performed By: #### CBCA, CMP ####[facility] ([id number])[address] [place] [address] [id number]#### 2571-8 ####[facility] ([id number])[address], [address], [place] [address]Pxfzijffd/100 WBC (Bld)0.3 %NormalProSouthwest General Health CenterComment on above:Performed By: #### CBCA, CMP ####[facility] ([id number])[address] [facility], [id number]#### 2571-8 ####[facility] ([id number])[address], [address], [place] [address]Rfotwlvfmds (Bld) [#/Vol]0.1 10*3/uLNormal 0.0-0.4ProSouthwest General Health CenterComment on above:Performed By: #### CBCA, CMP ####[facility] ([id number])[address] [facility], [id number]#### 2571-8 ####[facility] ([id number])[address], [address], [place] [address]Ezzhhhmwpnu/100 WBC (Bld)1.1 %NormalProSouthwest General Health CenterComment on above:Performed By: #### CBCA, CMP ####[facility] ([id number])[address] [facility], [id number]#### 2571-8 ####[facility] ([id number])[address], [address] [place] [address] Erythrocyte distribution width (RBC) [Ratio]21.9 %High11.5-15.0ProSouthwest General Health CenterComment on above:Performed By: #### CBCA, CMP ####[facility] ([id number])[address] [facility], [id number]#### 2571-8 ####[facility] ([id number])[address] [address] [place] [address] Hematocrit (Bld) [Volume fraction]31.9 %Hhg96-79WixBtkiazSouthwest General Health Center Comment on above:Performed By: #### CBCA, CMP ####[facility] ([id number])[address] [facility], [id number]#### 2571-8 ####[facility] ([id number])[address] [address], [place] [address]Zawmpvjhcf (Bld) [Mass/Vol]10.0 g/dLLow11.7-15.5PFort Hamilton HospitalComment on above: Performed By: #### CBCA, CMP ####[facility] ([id number])[address] [facility], [id number]#### 2571-8 ####[facility] ([id number])[address] [address], [place] [address]Tzjviwsqrct (Bld) [#/Vol] 1.2 10*3/uLNormal1.0-3.5PFort Hamilton HospitalComment on above:Performed By: #### CBCA, CMP ####[facility] ([id number])[address] [facility], [id number]#### 2571-8 ####[facility] ([id number])[address], [address], [place] [address]Cpjvjcfyvvd/100 WBC (Bld)20.9 %Normal ProMSumma Health Barberton CampusComment on above:Performed By: #### CBCA, CMP ####[facility] ([id number])[address] [facility], [id number]#### 2571-8 ####[facility] ([id number])[address], [address], [place] [address]EKJ (RBC) [Entitic mass]26.5 pgWgm17-62PjzTlfbamSouthwest General Health CenterComment on above:Performed By: #### CBCA, CMP ####[facility] ([id number])[address] [place] [address] [id number]#### 2571-8 ####[facility] ([id number])[address], [address], [place] [address]GNRM (RBC) [Mass/Vol]31.3 g/dENen44-89WwgYfhpqmSouthwest General Health CenterComment on above:Performed By: #### CBCA, CMP ####[facility] ([id number])[address] [place] [address], [id number]#### 2571-8 ####[facility] ([id number])[address], [address], [place] [address]BHW (RBC) [Entitic vol]85 cEUkmvum13-158 [facility] HospitalComment on above:Performed By: #### CBCA, CMP ####[facility] ([id number])[address] [facility], [id number]#### 2571-8 ####[facility] ([id number])[address], [address], [place] [address]Nhgquibem (Bld) [#/Vol]0.5 10*3/uLNormal0-0.9[facility] Comment on above:Performed By: #### CBCA, CMP ####[facility] ([id number])[address] [facility], [id number]#### 2571-8 ####[facility] ([id number])[address], [place] [address]Rvwmcqiok/100 WBC (Bld)8.8 %NormalProMedica [facility] East Valley HospitalComment on above:Performed By: #### CBCA, CMP ####[facility] ([id number])[address] [facility], [id number]#### 2571-8 ####[facility] ([id number])[address], [address], [place] [address]Spdeygepbxb/100 WBC (Bld)68.9 %Normal [facility]antiam HospitalComment on above:Performed By: #### CBCA, CMP ####[facility] ([id number])[address] [facility], [id number]#### 2571-8 ####[facility] ([id number])[address], [address], [place] [address]Qaxgkwzg mean volume (Bld) [Entitic vol]7.5 fLNormal7-12ProMedica Santiam HospitalComment on above:Performed By: #### CBCA, CMP ####[facility] ([id number])[address] [facility], [id number]#### 2571-8 ####[facility] ([id number])[address], [address], [place] [address] Platelets (Bld) [#/Vol]347 10*3/jTWsfwre989-926ZldIibstr Santiam HospitalComment on above:Performed By: #### CBCA, CMP ####[facility] ([id number])[address] [facility], [id number]#### 2571-8 ####[facility] ([id number])[address], [address] [place] [address]MSB COUNT3.77 X10E12/LLow3.80-5.20ProSouthwest General Health CenterComment on above:Performed By: #### CBCA, CMP ####[facility] ([id number])[address] [facility] [id number]#### 2571-8 ####[facility] ([id number])[address], [address], [place] [address]RAF morphology finding Nom (Bld)REVIEWED NormalProSouthwest General Health CenterComment on above:Performed By: #### CBCA, CMP ####[facility] ([id number])[address] [facility] [id number]#### 2571-8 ####[facility] ([id number])[address] [address] [place] [address]HLZ (Bld) [#/Vol]5.6 10*3/uLNormal4.0-11.0ProSouthwest General Health CenterComment on above:Performed By: #### CBCA, CMP ####[facility] ([id number])[address] [facility], [id number]#### 2571-8 ####[facility] ([id number])[address] [address] [place] [address], [place] [address] COMPREHENSIVE METABOLIC PANELon 32-59-0876Wxrtocn [Mass/Vol]2.6 g/dLLow3.2-5.3 [facility] HospitalComment on above:Performed By: #### CBCA, CMP ####[facility] ([id number])[address] [facility] [id number]#### 2571-8 ####[facility] ([id number])[address], [address], [place] [address]RYZ [Catalytic activity/Vol]66 U/ORczokw87-251YceAntlxlSouthwest General Health Center Comment on above:Performed By: #### CBCA, CMP ####[facility] ([id number])[address] [facility], [id number]#### 2571-8 ####[facility] ([id number])[address], [address], [place] [address]NYP [Catalytic activity/Vol]14 U/LNormal0-31ProMedTriHealth Good Samaritan HospitalComment on above: Performed By: #### CBCA, CMP ####[facility] ([id number])[address] [facility] [id number]#### 2571-8 ####[facility] ([id number])[address], [address], [place] [address]Snobz gap [Moles/Vol]7 mmol/LNormal5-15ProC[facility] HospitalComment on above:Performed By: #### CBCA, CMP ####[facility] ([id number])[address] [place] [place] [address]#### 2571-8 ####[facility] ([id number])[address], [place] [address]ASQ [Catalytic activity/Vol]14 U/LNormal0-41ProSouthwest General Health CenterComment on above:Performed By: #### CBCA, CMP ####[facility] ([id number])[address] [facility], [id number]#### 2571-8 ####[facility] ([id number])[address], [address], [place] [address]Inupavtti [Mass/Vol]0.5 mg/dLNormal0.3-1.2ProMedica [facility] HospitalComment on above:Performed By: #### CBCA, CMP ####[facility] ([id number])[address] [facility] [place], [id number]#### 2571-8 ####[facility] ([id number])[address], [address], [place] [address]Fdatnhy [Mass/Vol]8.4 mg/dLLow8.5-10.5PFort Hamilton HospitalComment on above: Performed By: #### ANNA, CMP ####[facility] ([id number])[address] [facility] [id number]#### 2571-8 ####[facility] ([id number])[address], [address], [place] [address]Syfoofnh [Moles/Vol]115 mmol/ONhfd24-198MgcPnsxncSouthwest General Health CenterComment on above:Performed By: #### ANNA, CMP ####[facility] ([id number])[address] [place] [address]#### 2571-8 ####[facility] ([id number])[address] [place] [address]JU1 [Moles/Vol]23 mmol/GTvcvsx88-68PeuIamyjhFort Hamilton HospitalComment on above:Performed By: #### ANNA, CMP ####[facility] ([id number])[address] [place] [address] [id number]#### 2571-8 ####[facility] ([id number])[address] [address], [place] [address] Creatinine [Mass/Vol]0.75 mg/dLNormal0.40-1.00ProSouthwest General Health CenterComment on above:Result Comment: METHOD TRACEABLE TO IDMS STANDARDPerformed By: #### ANNA, CMP ####[facility] ([id number])[address] [place] [address]#### 2571-8 ####[facility] ([id number])[address], [place] [address]gMGY (CKD-EPI) NON-RACE DEPENDENT>90Normal>59ProC[facility] Clinic [facility] HospitalComment on above:Result Comment: Reported eGFR is based on the CKD-EPI 2020 equation that does not use a race coefficient.Performed By: #### ANNA, CMP ####[facility] ([id number])[address] [facility] [id number]#### 2571-8 ####[facility] ([id number])[address], [address], [place] [address] Glucose [Mass/Vol]100 mg/vCKbts87-95UwzTidvpfSouthwest General Health CenterComment on above: Performed By: #### ANNA, CMP ####[facility] ([id number])[address] [facility] [id number]#### 2571-8 ####[facility] ([id number])[address], [place] [address]Qajukzkgh [Moles/Vol]3.7 mmol/LNormal3.5-5.0ProSouthwest General Health CenterComment on above:Performed By: #### ANNA, CMP ####[facility] ([id number])[address] [facility] [id number]#### 2571-8 ####[facility] ([id number])[address], [address], [place] [address]Cxrootg [Mass/Vol]7.0 g/dLNormal6.0-8.0ProSouthwest General Health CenterComment on above:Performed By: #### CBCA, CMP ####[facility] ([id number])[address] [facility], [id number]#### 2571-8 ####[facility] ([id number])[address], [address], [place] [address]Wawjda [Moles/Vol]145 mmol/VQdyodq925-484JtgUzribz Baypark HospitalComment on above:Performed By: #### CBCA, CMP ####[facility] ([id number])[address] [facility] [id number]#### 2571-8 ####[facility] ([id number])[address], [address] [place] [address]Fmpa nitrogen [Mass/Vol]16 mg/dLNormal5-23ProSouthwest General Health CenterComment on above:Performed By: #### CBCA, CMP ####[facility] ([id number])[address] [facility] [id number]#### 2571-8 ####[facility] ([id number])[address], [address], [place] [address]Zknmgko Glucometer (BldC) [Mass/Vol]on 09-30-1902Ggbwwzn [Mass/Vol]135 mg/bPEtny31-17PwfQmavrmSouthwest General Health CenterGlucose [Mass/Vol]105 mg/iXVecj03-77LoaMtodesSouthwest General Health CenterGlucose [Mass/Vol]87 mg/dL Swgsoi65-17YwxZcssbxSouthwest General Health CenterGlucose [Mass/Vol]97 mg/dSXnrhme13-75 [facility] HospitalPOTASSIUMon 15-08-9683Lkazsnsfr [Moles/Vol]3.8 mmol/L Normal3.5-5.0Wayne HospitalComment on above:Performed By: #### 2823- 3 ####[facility] ([id number])[address] [place] [address] Potassium [Moles/Vol]4.1 mmol/LNormal3.5-5.0ProSouthwest General Health CenterComment on above:Performed By: #### 2823-3 ####[facility] ([id number])[address] [place], [place] [address]XSULNQGWUYDCsv 04-20-2023 Triglyceride [Mass/Vol]335 mg/vSEfyc17-551NnlRmcjtkSouthwest General Health CenterComment on above:Performed By: #### CBCA, CMP ####[facility] ([id number])[address] [place], [place] [address]#### 2571-8 ####[facility] ([id number])[address], [place] [address]TP CHEST 1 VWon 59-76-9071NS CHEST 1 VWXR CHEST 1 VW Clinical history: Acute respiratory [...] by Tristen Neely MD on 04/20/2023 5:33 AMNormalProMedica Santiam HospitalARTERIAL BLOOD GASon 65-78-1504AWUVQ'S TESTPassNormalProSouthwest General Health CenterComment on above:Performed By: #### ABG #### [facility] ([id number]) [address] [place], [place] [address]OMFE,DEFICIT1.0 MMOL/LNormal0.0-2.0[facility] Comment on above:Performed By: #### ABG #### [facility] ([id number]) [address] [place] [address]Ljvz xidllskhcmk09.6 [degF]Eefzaj34.0[facility] Comment on above:Performed By: #### ABG #### [facility] ([id number]) [address] [place] [place] [address]OKA5 (Bld) [Moles/Vol]24.2 mmol/HDchere14-05WmxBxdtoaSouthwest General Health CenterComment on above:Performed By: #### ABG #### [facility] ([id number]) [address] [place], [place] [address]FKBT. O2 CONC.40 %NormalProSouthwest General Health CenterComment on above:Performed By: #### ABG #### [facility] ([id number]) [address] [place], [place] [address]Wihfnw (Bld) [Partial pressure]69 mm[Hg]Pbr97-525MpaYhhaelSouthwest General Health CenterComment on above:Performed By: #### ABG #### [facility] ([id number]) [address] [place], [place] [address]Qarqsa saturation in Blood93.0 %Normal>90ProSouthwest General Health CenterComment on above:Performed By: #### ABG #### [facility] ([id number]) [address] [place], [place] [address]SBEQDW SOURCEVentNormalWayne HospitalComment on above:Performed By: #### ABG #### [facility] ([id number]) [address] [place], [place] [address]RKV210.9 WVAHCqexna17-97IbmJmwckd [facility] HospitalComment on above:Performed By: #### ABG #### [facility] ([id number]) [address] [place], [place] [address]zP (Bld)7.371 [pH]Normal7.350-7.450ProSouthwest General Health Center Comment on above:Performed By: #### ABG #### [facility] ([id number]) [address] [place], [place] [address]LRZUJV SITELRadNormalProSouthwest General Health CenterComment on above: Performed By: #### ABG #### [facility] ([id number]) [address] [place], [place] [address]LKDZDQ TYPEARTERIALNormalProSouthwest General Health CenterComment on above:Performed By: #### ABG #### [facility] ([id number]) [address] [place], [place] [address]YGK AND AUTO DIFFon 66-17-5200YDZCWORQ BASOPHIL0.0 X10E9/LNormal 0.0-0.2[facility] HospitalComment on above:Performed By: #### ABG #### [facility] ([id number]) [address] [place] [place], [place] [address]WNEJEYJO NEUTROPHIL3.7 X10E9/LNormal1.5-6.6ProSouthwest General Health CenterComment on above:Performed By: #### ABG #### [facility] ([id number]) [address] [place], [place] [address]Aiwjegcib/100 WBC (Bld)0.3 %NormalWayne Hospital Comment on above:Performed By: #### ABG #### [facility] ([id number]) [address] [place], [place] [address]Gynhtqgeame (Bld) [#/Vol]0.0 10*3/uLNormal0.0-0.4ProSouthwest General Health CenterComment on above:Performed By: #### ABG #### [facility] ([id number]) [address] [place], [place] [address]Tujixlaxnne/100 WBC (Bld)0.8 %NormalWayne Hospital Comment on above:Performed By: #### ABG #### [facility] ([id number]) [address] [place], [place] [address]Yfphrstlazd distribution width (RBC) [Ratio]21.6 %High11.5-15.0 [facility] HospitalComment on above:Performed By: #### ABG #### [facility] ([id number]) [address] [place], [place] [address]Ezqxwmdgeq (Bld) [Volume fraction]30.5 %Tmd12-98SicChmycaSouthwest General Health CenterComment on above:Performed By: #### ABG #### [facility] ([id number]) [address] [place], [place] [address]Rcmqyfrtem (Bld) [Mass/Vol]9.8 g/dLLow11.7-15.5ProMedica [facility] HospitalComment on above:Performed By: #### ABG #### [facility] ([id number]) [address] [place], [place] [address]Rkuqacbonpg (Bld) [#/Vol]1.5 10*3/uLNormal1.0-3.5ProMedica [facility] HospitalComment on above:Performed By: #### ABG #### [facility] ([id number]) [address] [place], [place] [address]Hdqxxszjmrq/100 WBC (Bld)26.6 %NormalWayne Hospital Comment on above:Performed By: #### ABG #### [facility] ([id number]) [address] [facility] [address] [place], [place] [address]BQX (RBC) [Entitic mass]27.0 icZbroqs04-06JlsXuigvmSouthwest General Health CenterComment on above:Performed By: #### ABG #### [facility] ([id number]) [address] [facility] [address] [place], [place] [address]NVVA (RBC) [Mass/Vol]32.1 g/jCVddtno04-82HlhEuhcpySouthwest General Health CenterComment on above:Performed By: #### ABG #### [facility] ([id number]) [address] [facility] [address] [place], [place] [address]OHV (RBC) [Entitic vol]84 tBXsjtsn80-711NcdRflhqcWayne HospitalComment on above:Performed By: #### ABG #### [facility] ([id number]) [address] [place], [place] [address]Kintdiwdj (Bld) [#/Vol]0.4 10*3/uLNormal0-0.9Wayne HospitalComment on above:Performed By: #### ABG #### [facility] ([id number]) [address] [place], [place] [address]Gsgcnercd/100 WBC (Bld)6.8 %NormalWayne Hospital Comment on above:Performed By: #### ABG #### [facility] ([id number]) [address] [place], [place] [address]Asbqmhmikpz/100 WBC (Bld)65.5 %NormalWayne Hospital Comment on above:Performed By: #### ABG #### [facility] ([id number]) [address] [place], [place] [address]Ghfpcepd mean volume (Bld) [Entitic vol]7.5 fLNormal7-12 [facility] HospitalComment on above:Performed By: #### ABG #### [facility] ([id number]) [address] [place], [place] [address]Jsbbpbhhm (Bld) [#/Vol]328 10*3/dKRvdghl967-049CanOqiojr [facility] HospitalComment on above:Performed By: #### ABG #### [facility] ([id number]) [address] [place], [place] [address]YBT COUNT3.62 X10E12/LLow3.80-5.20ProSouthwest General Health Center Comment on above:Performed By: #### ABG #### [facility] ([id number]) [address] [place] [place], [place] [address]HXM morphology finding Nom (Bld)REVIEWEDNormalProSouthwest General Health CenterComment on above:Performed By: #### ABG #### [facility] ([id number]) [address] [place], [place] [address]AUO (Bld) [#/Vol]5.6 10*3/uLNormal4.0-11.0ProSouthwest General Health CenterComment on above:Performed By: #### ABG #### [facility] ([id number]) [address] [place], [place] [address]PPRRLZTWGUVOB METABOLIC PANELon 70-11-7002Kijktzl [Mass/Vol]2.4 g/dLLow3.2-5.3Pro[facility] HospitalComment on above:Performed By: #### ABG #### [facility] ([id number]) [address] [place], [place] [address]PDA [Catalytic activity/Vol]62 U/ROmngfb21-935XjhDlrigxSouthwest General Health CenterComment on above:Performed By: #### ABG #### [facility] ([id number]) [address] [place] [place], [place] [address]RRA [Catalytic activity/Vol]16 U/LNormal0-31PFort Hamilton HospitalComment on above:Performed By: #### ABG #### [facility] ([id number]) [address] [place], [place] [address]Qhauk gap [Moles/Vol]6 mmol/LNormal5-15ProSouthwest General Health CenterComment on above:Performed By: #### ABG #### [facility] ([id number]) [address] [place] [place], [place] [address]DTR [Catalytic activity/Vol]18 U/LNormal0-41Wayne HospitalComment on above:Performed By: #### ABG #### [facility] ([id number]) [address] [place], [place] [address]Tnkjrwbsk [Mass/Vol]0.5 mg/dLNormal0.3-1.2PFort Hamilton HospitalComment on above:Performed By: #### ABG #### [facility] ([id number]) [address] [place], [place] [address]Fsgezwd [Mass/Vol]8.2 mg/dLLow8.5-10.5PFort Hamilton Hospital Comment on above:Performed By: #### ABG #### [facility] ([id number]) [address] [place], [place] [address]Xgnvwkyd [Moles/Vol]115 mmol/WOzlj37-130ZseMkibdfSouthwest General Health CenterComment on above:Performed By: #### ABG #### [facility] ([id number]) [address] [place], [place] [address]BA1 [Moles/Vol]25 mmol/TVfrlme64-50ThrNtpabqFort [facility] Hospital Comment on above:Performed By: #### ABG #### [facility] ([id number]) [address] [place], [place] [address]Hevpqvwpyh [Mass/Vol]0.97 mg/dLNormal0.40-1.00ProSouthwest General Health CenterComment on above:Result Comment: METHOD TRACEABLE TO IDMS STANDARD Performed By: #### ABG #### [facility] ([id number]) [address] [place], [place] [address]JSI/1.73 sq M.predicted among non-blacks MDRD (S/P/Bld) [Vol rate/Area]67 mL/min/{1.73_m2}Normal>59ProSouthwest General Health CenterComment on above:Result Comment: Reported eGFR is based on the CKD-EPI 2020 equation that does not use a race coefficient.Performed By: #### ABG #### [facility] ([id number]) [address] [place], [place] [address]Qmevwyc [Mass/Vol]98 mg/lPUyvofs18-40FqeNuslozSouthwest General Health Center Comment on above:Performed By: #### ABG #### [facility] ([id number]) [address] [place], [place] [address]Bsjtnoqiw [Moles/Vol]3.3 mmol/LLow3.5-5.0ProSouthwest General Health CenterComment on above:Performed By: #### ABG #### [facility] ([id number]) [address] [place], [place] [address]Yvtgtxp [Mass/Vol]6.5 g/dLNormal6.0-8.0Way[facility] HospitalComment on above:Performed By: #### ABG #### [facility] ([id number]) [address] [place], [place] [address]Nwbcnt [Moles/Vol]146 mmol/QSpqpyf717-406YlxQfchrd Baypark HospitalComment on above:Performed By: #### ABG #### [facility] ([id number]) [address] [place], [place] [address]Vpdx nitrogen [Mass/Vol]14 mg/dLNormal5-23ProSouthwest General Health CenterComment on above:Performed By: #### ABG #### [facility] ([id number]) [address] [place], [place] [address]HDI [Mass/Vol]on -3C REACTIVE PROTEIN6.1 mg/dLHigh 0.000-0.744PFort Hamilton HospitalComment on above:Performed By: #### ABG #### [facility] ([id number]) [address] [place], [place] [address]Bmhxlap Glucometer (BldC) [Mass/Vol]on 36-47-4195Axsxkfz [Mass/Vol]176 mg/aRGbur33-05TezOckhct [facility]park HospitalGlucose [Mass/Vol]92 mg/dL Kfqwkw15-44CapLkteqp [facility] HospitalGlucose [Mass/Vol]94 mg/sCVgpqsf14-19 [facility] HospitalGlucose [Mass/Vol]93 mg/vBNxengb67-56VsjGoksomSouthwest General Health CenterLactate (P yong) [Moles/Vol]on 86-58-2782Sfitcqy [Moles/Vol]0.9 mmol/L Normal0.4-2.0Wayne HospitalComment on above:Performed By: #### ABG #### [facility] ([id number]) [address] [place], [place] [address]Pbovpzevefb peptide B [Mass/Vol]on 41-06-4788Jnoqzcwywjm peptide B (Bld) [Mass/Vol]25 pg/mLNormal<100.0ProSouthwest General Health CenterComment on above:Performed By: #### ABG #### [facility] ([id number]) [address] [place], [place] [address]RAHLUQZWDum 79-41-4198Uahbfpcex [Moles/Vol]3.6 mmol/LNormal 3.5-5.0ProSouthwest General Health CenterComment on above:Performed By: #### ABG #### [facility] ([id number]) [address] [place], [place] [address]JP CHEST 1 VWon 09-97-5788BP CHEST 1 VWXR CHEST 1 VW CLINICAL INFORMATION: Dyspnea. TECHNIQUE: [...] Victor Hugo Kim MD on 04/19/2023 5:41 AMNormalProSouthwest General Health CenterARTERIAL BLOOD GASon 55-47-0967TZVTW'S TESTNormalProSouthwest General Health CenterComment on above:Performed By: #### CMP, 05942-1, , CBCA #### [facility] ([id number]) [address] [facility] [place], [place] [address]EDFL,DEFICIT1.0 MMOL/LNormal0.0-2.0[facility] Comment on above:Performed By: #### CMP, 16859-9, , CBCA #### [facility] ([id number]) [address] [facility] [place], [place] [address]Zged smrxwexmwqa07.6 [degF]Enrjnb97.0[facility] Comment on above:Performed By: #### CMP, 39610-2, , CBCA #### [facility] ([id number]) [address] [facility] [place], [place] [address]UPT1 (Bld) [Moles/Vol]24.3 mmol/CUqgrvw67-51FtjAmqffrSouthwest General Health CenterComment on above:Performed By: #### CMP, 90071-8, , CBCA #### [facility] ([id number]) [address] [facility] [place], [place] [address]MFJC. O2 CONC.50 %NormalProSouthwest General Health CenterComment on above:Performed By: #### CMP, 80618-0, 11907-0, CBCA #### [facility] ([id number]) [address] [facility] [place], [place] [address]Oejcpa (Bld) [Partial pressure]71 mm[Hg]Gby14-474KebUpksewSouthwest General Health CenterComment on above:Performed By: #### CMP, 10942-6, 84994-8, CBCA #### [facility] ([id number]) [address] [place], [place] [address]Yskejj saturation in Blood94.0 %Normal>90ProSouthwest General Health CenterComment on above:Performed By: #### XENIA, 87476-9, 72426-8, CBCA #### [facility] ([id number]) [address] [place], [place] [address]OZDAND SOURCEVentNormalProSouthwest General Health CenterComment on above:Performed By: #### XENIA, 16232-3, 61889-4, CBCA #### [facility] ([id number]) [address] [facility] [address] [place], [place] [address]HUE040.7 NTCIZxvxya08-58HcjLzvtih Baypark HospitalComment on above:Performed By: #### XENIA, 62953-0, , CBCA #### [facility] ([id number]) [address] [place], [place] [address]iG (Bld)7.373 [pH]Normal7.350-7.450ProSouthwest General Health Center Comment on above:Performed By: #### XENIA, 53129-5, , CBCA #### [facility] ([id number]) [address] [place], [place] [address]VJUSCQ SITELRadNormalWayne HospitalComment on above: Performed By: #### XENIA, 80099-5, 80295-6, CBCA #### [facility] ([id number]) [address] [place], [place] [address]KQAEGD TYPEARTERIALNormalProSouthwest General Health CenterComment on above:Performed By: #### XENIA, 73519-4, 35557-5, CBCA #### [facility] ([id number]) [address] [place], [place] [address]NQU AND AUTO DIFFon 35-17-3954ERCPRGKE BASOPHIL0.0 X10E9/LNormal 0.0-0.2ProMedica Santiam HospitalComment on above:Performed By: #### XENIA, 90814- 0, , CBCA #### [facility] ([id number]) [address] [place], [place] [address]HKQYYSEU NEUTROPHIL2.5 X10E9/LNormal1.5-6.6ProSouthwest General Health CenterComment on above:Performed By: #### CMP, 19089-5, 22292-2, CBCA #### [facility] ([id number]) [address] [place], [place] [address]Hudnfvmnkxgt Ql (Bld)2+AbnormalNONEProMedica Santiam Hospital Comment on above:Performed By: #### CMP, 91330-3, , CBCA #### [facility] ([id number]) [address] [place], [place] [address]Lgaqoifro/100 WBC (Bld)0.2 %NormalWayne Hospital Comment on above:Performed By: #### XENIA, 26388-5, , CBCA #### [facility] ([id number]) [address] [place], [place] [address]Hdlaththbyi (Bld) [#/Vol]0.0 10*3/uLNormal0.0-0.4[facility] HospitalComment on above:Performed By: #### XENIA, 68321-5, , CBCA #### [facility] ([id number]) [address] [place], [place] [address]Cfnwpbidnba/100 WBC (Bld)0.1 %NormalWayne Hospital Comment on above:Performed By: #### CMP, 32317-3, , CBCA #### [facility] ([id number]) [address] [place], [place] [address]Rejomztnxof distribution width (RBC) [Ratio]22.1 %High11.5-15.0 ProMSumma Health Barberton CampusComment on above:Performed By: #### CMP, 39808-8, , CBCA #### [facility] ([id number]) [address] [place], [place] [address]Mvirqdlals (Bld) [Volume fraction]31.1 %Zjl01-75PsgIoaxicWayne HospitalComment on above:Performed By: #### XENIA, 62692-2, , CBCA #### [facility] ([id number]) [address] [place], [place] [address]Xqjcvohsib (Bld) [Mass/Vol]9.9 g/dLLow11.7-15.5PFort Hamilton HospitalComment on above:Performed By: #### XENIA, 76161-3, , CBCA #### [facility] ([id number]) [address] [place], [place] [address]Npbmshzsokb (Bld) [#/Vol]1.2 10*3/uLNormal1.0-3.5PFort Hamilton HospitalComment on above:Performed By: #### XENIA, 39799-9, , CBCA #### [facility] ([id number]) [address] [place], [place] [address]Uhgerchutur/100 WBC (Bld)30.6 %NormalWayne Hospital Comment on above:Performed By: #### XENIA, 50566-5, , CBCA #### [facility] ([id number]) [address] [place], [place] [address]TNY (RBC) [Entitic mass]27.0 ekFctoti52-32UkdVzsotvWayne HospitalComment on above:Performed By: #### XENIA, 36450-4, , CBCA #### [facility] ([id number]) [address] [place], [place] [address]MHMU (RBC) [Mass/Vol]31.8 g/jNGbt07-66JdjPtcuqdWayne Hospital Comment on above:Performed By: #### CMP, 16529-2, , CBCA #### [facility] ([id number]) [address] [place], [place] [address]AFT (RBC) [Entitic vol]85 dBLxztwm50-378JmbCzkset [facility] HospitalComment on above:Performed By: #### CMP, 57478-2, , CBCA #### [facility] ([id number]) [address] [place], [place] [address]Jcexojlej (Bld) [#/Vol]0.3 10*3/uLNormal0-0.9ProSouthwest General Health CenterComment on above:Performed By: #### CMP, 74303-2, 73142-5, CBCA #### [facility] ([id number]) [address] [place], [place] [address]Efcggbhjj/100 WBC (Bld)7.4 %[facility] Comment on above:Performed By: #### CMP, 76824-0, , CBCA #### [facility] ([id number]) [address] [facility] [address] [address] [place], [place] [address]Txdodovcxbc/100 WBC (Bld)61.7 %[facility] Comment on above:Performed By: #### CMP, 76789-6, , CBCA #### [facility] ([id number]) [address] [place], [place] [address]Oeyvalap mean volume (Bld) [Entitic vol]7.5 fLNormal7-12 ProMSumma Health Barberton CampusComment on above:Performed By: #### CMP, 21238-2, , CBCA #### [facility] ([id number]) [address] [place], [place] [address]Jiuyfjjam (Bld) [#/Vol]317 10*3/dGVezawi474-839YvrBuqrtf [facility] HospitalComment on above:Performed By: #### CMP, 67560-0, , CBCA #### [facility] ([id number]) [address] [place], [place] [address]PVM COUNT3.65 X10E12/LLow3.80-5.20[facility] Comment on above:Performed By: #### CMP, 06996-4, , CBCA #### [facility] ([id number]) [address] [place], [place] [address]ZPE (Bld) [#/Vol]4.0 10*3/uLNormal4.0-11.0ProWilson [address] Hospitalca [facility] HospitalComment on above:Performed By: #### CMP, 61467-1, 35927-3, CBCA #### [facility] ([id number]) [address] [place], [place] [address]GEQNDHDJBCBAS METABOLIC PANELon 91-55-1672Hahrrks [Mass/Vol]2.4 g/dLLow3.2-5.3ProMedica [facility] HospitalComment on above:Performed By: #### XENIA, 81509-6, , CBCA #### [facility] ([id number]) [address] [place], [place] [address]PXG [Catalytic activity/Vol]64 U/BXtfkxa65-499TevRekgrf [facility] HospitalComment on above:Performed By: #### CMP, 07967-2, , CBCA #### [facility] ([id number]) [address] [place], [place] [address]ILK [Catalytic activity/Vol]18 U/LNormal0-31ProMedDayton VA Medical Center HospitalComment on above:Performed By: #### XENIA, 97453-8, , CBCA #### [facility] ([id number]) [address] [place], [place] [address]Itjqr gap [Moles/Vol]7 mmol/LNormal5-15ProC[facility] HospitalComment on above:Performed By: #### CMP, 04017-3, , CBCA #### [facility] ([id number]) [address] [place], [place] [address]YIW [Catalytic activity/Vol]20 U/LNormal0-41ProC[facility] HospitalComment on above:Performed By: #### CMP, 57341-2, 67867-8, CBCA #### [facility] ([id number]) [address] [place], [place] [address]Ibjuivkic [Mass/Vol]0.4 mg/dLNormal0.3-1.2PFort Hamilton HospitalComment on above:Performed By: #### XENIA, 03507-5, , CBCA #### [facility] ([id number]) [address] [place], [place] [address]Dbsbmyd [Mass/Vol]7.0 mg/dLLow8.5-10.5PFort Hamilton Hospital Comment on above:Performed By: #### XENIA, 46769-2, , CBCA #### [facility] ([id number]) [address] [place], [place] [address]Hchdkymb [Moles/Vol]114 mmol/JOdcv37-756PviDyofolSouthwest General Health CenterComment on above:Performed By: #### XENIA, 97012-0, , CBCA #### [facility] ([id number]) [address] [place], [place] [address]VA2 [Moles/Vol]25 mmol/RPespae21-63KbvSgquloFort Hamilton Hospital Comment on above:Performed By: #### XENIA, 44452-9, , CBCA #### [facility] ([id number]) [address] [place], [place] [address]Dloddkxbry [Mass/Vol]0.83 mg/dLNormal0.40-1.00ProSouthwest General Health CenterComment on above:Result Comment: METHOD TRACEABLE TO IDMS STANDARD Performed By: #### XENIA, 16273-0, , CBCA #### [facility] ([id number]) [address] [place], [place] [address]ACL/1.73 sq M.predicted among non-blacks MDRD (S/P/Bld) [Vol rate/Area]81 mL/min/{1.73_m2}Normal>59ProSouthwest General Health CenterComment on above:Result Comment: Reported eGFR is based on the CKD-EPI 2020 equation that does not use a race coefficient.Performed By: #### CMP, 53660-2, , CBCA #### [facility] ([id number]) [address] [place], [place] [address]Yaidwtw [Mass/Vol]100 mg/cTJmlz87-67NybHgrcrjSouthwest General Health Center Comment on above:Performed By: #### XENIA, 68396-8, , CBCA #### [facility] ([id number]) [address] [place], [place] [address]Cjfvqefkb [Moles/Vol]4.7 mmol/LNormal3.5-5.0ProSouthwest General Health CenterComment on above:Performed By: #### XENIA, 00182-7, , CBCA #### [facility] ([id number]) [address] [place], [place] [address]Nuasnyo [Mass/Vol]6.4 g/dLNormal6.0-8.0ProSouthwest General Health CenterComment on above:Performed By: #### XENIA, 76260-9, , CBCA #### [facility] ([id number]) [address] [place], [place] [address]Ebrqcm [Moles/Vol]146 mmol/LGvrghb399-278DasZhlshz [facility] HospitalComment on above:Performed By: #### XENIA, 57251-9, , CBCA #### [facility] ([id number]) [address] [place], [place] [address]Ptok nitrogen [Mass/Vol]12 mg/dLNormal5-23ProSouthwest General Health CenterComment on above:Performed By: #### XENIA, 47778-0, , CBCA #### [facility] ([id number]) [address] [place], [place] [address]Xmgpbam.ionized (Bld) [Moles/Vol]on 09-13-7742YXWNNJPD ICA4.8 mg/dLNormal4.5-5.3ProMedTriHealth Good Samaritan HospitalComment on above:Performed By: #### XENIA, 79141-1, , CBCA #### [facility] ([id number]) [address] [place], [place] [address]Fhlbxdq Glucometer (BldC) [Mass/Vol]on 50-25-7568Sgfztgr [Mass/Vol]126 mg/mPUcjl63-30AhtVuyipcWayne HospitalGlucose [Mass/Vol]94 mg/dL Egydfg96-66AfpIdibndSouthwest General Health CenterGlucose [Mass/Vol]104 mg/bJJits42-94 ProMedica Santiam HospitalXR CHEST 1 VWon 05-32-4054CI CHEST 1 VWXR CHEST 1 VW Single view chest History: Difficulty breathing, shortness of breath. Covid positive. Comparison: 04/17/2023 Findings: Similar loop configuration left IJ catheter. Similar ET tube. Partially imaged enteric tube. Mediansternotomy. Stable enlarged cardiac silhouette. Bandlike opacity right lower lobe, likely atelectatic. Small effusions. No measurable pneumothorax. Right costophrenic angle excluded from rindd-td-sbqz. Impression: 1. Persistent effusions, with or without underlying pneumonia. 2. Looped configuration left IJ catheter and correlate with function. Finalized by Victor Hugo Gustafson MD on 04/18/2023 5:44 AMNormalProSouthwest General Health CenterARTERIAL BLOOD GASon 64-60-1336BMXGQ'S TESTPassNormalWayne HospitalComment on above:Performed By: #### XENIA, 26561-9, 41773-1, CBCA #### [facility] ([id number]) [address] [place], [place] [address]SAOD,DEFICIT1.0 MMOL/LNormal0.0-2.0[facility] Comment on above:Performed By: #### XENIA, 46082-6, 76326-2, CBCA #### [facility] ([id number]) [address] [place], [place] [address]Miqa rudxrjznzip99.6 [degF]Qtorkw18.0[facility] Comment on above:Performed By: #### XENIA, 29736-2, 66791-9, CBCA #### [facility] ([id number]) [address] [place], [place] [address]HJV4 (Bld) [Moles/Vol]24.3 mmol/KVwcrmf55-63HwyOajkdbSouthwest General Health CenterComment on above:Performed By: #### XENIA, 93321-5, 98208-0, CBCA #### [facility] ([id number]) [address] [place], [place] [address]LHZG. O2 CONC.50 %NormalProSouthwest General Health CenterComment on above:Performed By: #### CMP, 49185-7, 06364-1, CBCA #### [facility] ([id number]) [address] [place], [place] [address]Rqrnkk (Bld) [Partial pressure]73 mm[Hg]Zcf25-238HdtTlzpcjSouthwest General Health CenterComment on above:Performed By: #### XENIA, 95430-6, 98082-7, CBCA #### [facility] ([id number]) [address] [place], [place] [address]Cvypth saturation in Blood94.0 %Normal>90ProSouthwest General Health CenterComment on above:Performed By: #### XENIA, 47381-4, 62954-2, CBCA #### [facility] ([id number]) [address] [place], [place] [address]ILNZJM SOURCEVentNormalProSouthwest General Health CenterComment on above:Performed By: #### CMP, 52762-5, , CBCA #### [facility] ([id number]) [address] [place], [place] [address]VRF522.9 HSABNhpwqc79-45DelLenwld [facility] HospitalComment on above:Performed By: #### CMP, 32470-8, 35945-9, CBCA #### [facility] ([id number]) [address] [place], [place] [address]tC (Bld)7.342 [pH]Low7.350-7.450ProSouthwest General Health Center Comment on above:Performed By: #### CMP, 39992-6, 33251-8, CBCA #### [facility] ([id number]) [address] [place], [place] [address]UOBCSM SITERRadNormalWayne HospitalComment on above: Performed By: #### XENIA, 91790-4, , CBCA #### [facility] ([id number]) [address] [place], [place] [address]QIMIIS TYPEARTERIALNormalWayne HospitalComment on above:Performed By: #### XENIA, 88686-9, , CBCA #### [facility] ([id number]) [address] [place], [place] [address]ANNSR METABOLIC PANLon 76-66-1900Jcxkq gap [Moles/Vol]8 mmol/L Normal5-15[facility] HospitalComment on above:Performed By: #### XENIA, 50741-1, , CBCA #### [facility] ([id number]) [address] [place], [place] [address]Jvwdibg [Mass/Vol]8.3 mg/dLLow8.5-10.5PFort [facility] Hospital Comment on above:Performed By: #### XENIA, 79287-0, , CBCA #### [facility] ([id number]) [address] [place], [place] [address]Cbqnguwc [Moles/Vol]114 mmol/ALsoc33-426ZluYxsccwWayne HospitalComment on above:Performed By: #### XENIA, 04212-5, , CBCA #### [facility] ([id number]) [address] [place], [place] [address]CK5 [Moles/Vol]23 mmol/TXiodrk60-82OalPthflrFort Hamilton Hospital Comment on above:Performed By: #### XENIA, 60703-1, , CBCA #### [facility] ([id number]) [address] [place], [place] [address]Imjimpskln [Mass/Vol]0.96 mg/dLNormal0.40-1.00[facility] HospitalComment on above:Result Comment: METHOD TRACEABLE TO IDMS STANDARD Performed By: #### XENIA, 10760-4, , CBCA #### [facility] ([id number]) [address] [place], [place] [address]VLO/1.73 sq M.predicted among non-blacks MDRD (S/P/Bld) [Vol rate/Area]68 mL/min/{1.73_m2}Normal>59ProSouthwest General Health CenterComment on above:Result Comment: Reported eGFR is based on the CKD-EPI 2020 equation that does not use a race coefficient.Performed By: #### XENIA, 94243-7, , CBCA #### [facility] ([id number]) [address] [place], [place] [address]Pkltcvu [Mass/Vol]164 mg/nNMtft65-13KmcWfyvzxSouthwest General Health Center Comment on above:Performed By: #### XENIA, 00416-2, , CBCA #### [facility] ([id number]) [address] [place], [place] [address]Wheftccwj [Moles/Vol]4.3 mmol/LNormal3.5-5.0ProSouthwest General Health CenterComment on above:Performed By: #### XENIA, 62869-5, , CBCA #### [facility] ([id number]) [address] [place], [place] [address]Oehrbi [Moles/Vol]145 mmol/AWxvwkb150-165MrvIdevhg [facility] HospitalComment on above:Performed By: #### XENIA, 11363-1, , CBCA #### [facility] ([id number]) [address] [place], [place] [address]Kenv nitrogen [Mass/Vol]11 mg/dLNormal5-23ProSouthwest General Health CenterComment on above:Performed By: #### XENIA, 41255-1, 95739-7, CBCA #### [facility] ([id number]) [address] [place], [place] [address]KIS AND AUTO DIFFon 65-26-7925RUPSMMQJ BASOPHIL0.0 X10E9/LNormal 0.0-0.2PFort Hamilton HospitalComment on above:Performed By: #### XENIA, 62816- 0, , CBCA #### [facility] ([id number]) [address] [place], [place] [address]FYOQVCWV NEUTROPHIL2.3 X10E9/LNormal1.5-6.6ProSouthwest General Health CenterComment on above:Performed By: #### XENIA, 56903-7, , CBCA #### [facility] ([id number]) [address] [facility] [place], [place] [address]Yewyujwbfbys Ql (Bld)2+AbnormalNONEPFort Hamilton Hospital Comment on above:Performed By: #### XENIA, 15901-5, , CBCA #### [facility] ([id number]) [address] [place], [place] [address]Tnzmlaxsn/100 WBC (Bld)0.3 %NormalWayne Hospital Comment on above:Performed By: #### XENIA, 86895-6, , CBCA #### [facility] ([id number]) [address] [facility] [place], [place] [address]Urbivifxqke (Bld) [#/Vol]0.0 10*3/uLNormal0.0-0.4Wayne HospitalComment on above:Performed By: #### XENIA, 17402-7, , CBCA #### [facility] ([id number]) [address] [place], [place] [address]Myospivsazv/100 WBC (Bld)0.2 %NormalWayne Hospital Comment on above:Performed By: #### XENIA, 37330-6, , CBCA #### [facility] ([id number]) [address] [place], [place] [address]Vquxsxqlyzn distribution width (RBC) [Ratio]22.2 %High11.5-15.0 [facility] HospitalComment on above:Performed By: #### CMP, 41278-3, , CBCA #### [facility] ([id number]) [address] [facility] [place], [place] [address]Nhdwyrkeui (Bld) [Volume fraction]30.6 %Epn26-16ZnxBmtxjz [facility] HospitalComment on above:Performed By: #### CMP, 06479-0, , CBCA #### [facility] ([id number]) [address] [facility] [place], [place] [address]Xgrpxnkdwc (Bld) [Mass/Vol]9.9 g/dLLow11.7-15.5PFort Hamilton HospitalComment on above:Performed By: #### CMP, 82291-0, , CBCA #### [facility] ([id number]) [address] [place], [place] [address]Wbtjkwvjhor (Bld) [#/Vol]1.0 10*3/uLNormal1.0-3.5PFort Hamilton HospitalComment on above:Performed By: #### CMP, 91847-1, , CBCA #### [facility] ([id number]) [address] [facility] [place], [place] [address]Uyrmpqhljbd/100 WBC (Bld)29.2 %NormalProCleveland Clinic [facility] Hospital Comment on above:Performed By: #### CMP, 38748-2, , CBCA #### [facility] ([id number]) [address] [facility] [place], [place] [address]CFI (RBC) [Entitic mass]27.8 nxSksokk89-82RvxPoarsr [facility] HospitalComment on above:Performed By: #### CMP, 26410-6, , CBCA #### [facility] ([id number]) [address] [facility] [place], [place] [address]VENR (RBC) [Mass/Vol]32.5 g/wZAgnwjp36-70XbrHomjbp [facility] HospitalComment on above:Performed By: #### CMP, 31328-0, 54051-1, CBCA #### [facility] ([id number]) [address] [place], [place] [address]ZFR (RBC) [Entitic vol]86 uTJtcszu33-767EbaKvgeal [facility] HospitalComment on above:Performed By: #### CMP, 23217-9, 56646-2, CBCA #### [facility] ([id number]) [address] [place], [place] [address]Fdlobyqaj (Bld) [#/Vol]0.2 10*3/uLNormal0-0.9ProSouthwest General Health CenterComment on above:Performed By: #### CMP, 81651-7, 10867-6, CBCA #### [facility] ([id number]) [address] [place], [place] [address]Mtczcajgy/100 WBC (Bld)5.8 %NormalWayne Hospital Comment on above:Performed By: #### CMP, 78769-9, 64254-2, CBCA #### [facility] ([id number]) [address] [place], [place] [address]Fbyhbdlcfhb/100 WBC (Bld)64.5 %[facility] Comment on above:Performed By: #### CMP, 55378-4, 41788-7, CBCA #### [facility] ([id number]) [address] [place], [place] [address]Bqgphxqf mean volume (Bld) [Entitic vol]7.7 fLNormal7-12 [facility] HospitalComment on above:Performed By: #### CMP, 64370-5, 12765-6, CBCA #### [facility] ([id number]) [address] [place], [place] [address]Nsygycsxr (Bld) [#/Vol]295 10*3/tMOltwib988-730HgdQlkujc [facility] HospitalComment on above:Performed By: #### CMP, 79260-8, 33663-1, CBCA #### [facility] ([id number]) [address] [place], [place] [address]XOF COUNT3.57 X10E12/LLow3.80-5.20ProSouthwest General Health Center Comment on above:Performed By: #### XENIA, 32541-2, , CBCA #### [facility] ([id number]) [address] [place], [place] [address]QCD (Bld) [#/Vol]3.6 10*3/uLLow4.0-11.0ProSouthwest General Health CenterComment on above:Performed By: #### XENIA, 59407-7, 00989-2, CBCA #### [facility] ([id number]) [address] [place], [place] [address]FOCZBQJA BASOPHIL0.0 X10E9/LNormal0.0-0.2ProMedTriHealth Good Samaritan HospitalComment on above:Performed By: #### XENIA, 00207-9, , CBCA #### [facility] ([id number]) [address] [place], [place] [address]EXAMTBTM NEUTROPHIL2.1 X10E9/LNormal1.5-6.6ProSouthwest General Health CenterComment on above:Performed By: #### XENIA, 40819-5, , CBCA #### [facility] ([id number]) [address] [place], [place] [address]Xdkolwpeuoyp Ql (Bld)2+AbnormalNONEPFort [facility] Hospital Comment on above:Performed By: #### XENIA, 61150-7, , CBCA #### [facility] ([id number]) [address] [place], [place] [address]Kzgrkihaw/100 WBC (Bld)0.3 %NormalWayne Hospital Comment on above:Performed By: #### XENIA, 25681-7, , CBCA #### [facility] ([id number]) [address] [place], [place] [address]Cessyhqmcwk (Bld) [#/Vol]0.0 10*3/uLNormal0.0-0.4ProSouthwest General Health CenterComment on above:Performed By: #### CMP, 43840-5, , CBCA #### [facility] ([id number]) [address] [facility] [place], [place] [address]Haviohbdlqb/100 WBC (Bld)0.1 %NormalWayne Hospital Comment on above:Performed By: #### CMP, 92188-8, , CBCA #### [facility] ([id number]) [address] [facility] [place], [place] [address]Nkrrqyhanwe distribution width (RBC) [Ratio]22.0 %High11.5-15.0 [facility] Santiam HospitalComment on above:Performed By: #### CMP, 64003-6, , CBCA #### [facility] ([id number]) [address] [facility] [place], [place] [address]Yycqcjwijp (Bld) [Volume fraction]31.4 %Tqx89-86NcjRpnwnvSouthwest General Health CenterComment on above:Performed By: #### CMP, 84110-6, , CBCA #### [facility] ([id number]) [address] [place], [place] [address]Lugyqiejqm (Bld) [Mass/Vol]10.2 g/dLLow11.7-15.5PFort Hamilton HospitalComment on above:Performed By: #### CMP, 50045-4, , CBCA #### [facility] ([id number]) [address] [place], [place] [address]Snrbukzwwwt (Bld) [#/Vol]0.9 10*3/uLLow1.0-3.5PFort Hamilton HospitalComment on above:Performed By: #### CMP, 21593-9, , CBCA #### [facility] ([id number]) [address] [place], [place] [address]Jsjjeqyovok/100 WBC (Bld)28.7 %NormalWayne Hospital Comment on above:Performed By: #### CMP, 59141-2, 56222-0, CBCA #### [facility] ([id number]) [address] [place], [place] [address]DPC (RBC) [Entitic mass]27.4 bjWmaxwx21-87MooGfcsioSouthwest General Health CenterComment on above:Performed By: #### CMP, 93026-2, 56118-1, CBCA #### [facility] ([id number]) [address] [place], [place] [address]SJXZ (RBC) [Mass/Vol]32.4 g/hIAhgsya81-11YsyEkhctcSouthwest General Health CenterComment on above:Performed By: #### CMP, 09071-5, , CBCA #### [facility] ([id number]) [address] [place], [place] [address]PIS (RBC) [Entitic vol]84 kLQpuqxa52-974ZipAuyify Baypark HospitalComment on above:Performed By: #### CMP, 72952-4, , CBCA #### [facility] ([id number]) [address] [place], [place] [address]Onetygxau (Bld) [#/Vol]0.2 10*3/uLNormal0-0.9Wayne HospitalComment on above:Performed By: #### CMP, 28573-9, , CBCA #### [facility] ([id number]) [address] [place] [address]Zhiijdvkw/100 WBC (Bld)6.9 %NormalWayne [facility] Comment on above:Performed By: #### CMP, 89009-8, 51986-0, CBCA #### [facility] ([id number]) [address] [place], [place] [address]Etznnagulsy/100 WBC (Bld)64.0 %[facility] Comment on above:Performed By: #### CMP, 16012-5, 52954-1, CBCA #### [facility] ([id number]) [address] [place], [place] [address]Iabreqjb mean volume (Bld) [Entitic vol]7.8 fLNormal7-12 ProMSumma Health Barberton CampusComment on above:Performed By: #### XENIA, 16977-0, 07460-4, CBCA #### [facility] ([id number]) [address] [place], [place] [address]Wvtknnwlm (Bld) [#/Vol]301 10*3/nBPlyala330-341YptLrfkgl [facility]park HospitalComment on above:Performed By: #### XENIA, 00871-4, 45157-5, CBCA #### [facility] ([id number]) [address] [place], [place] [address]WYW COUNT3.72 X10E12/LLow3.80-5.20ProSouthwest General [facility] Center Comment on above:Performed By: #### XENIA, 77930-3, 75678-7, CBCA #### [facility] ([id number]) [address] [place], [place] [address]PXP (Bld) [#/Vol]3.3 10*3/uLLow4.0-11.0ProSouthwest General Health CenterComment on above:Performed By: #### XENIA, 05071-9, , CBCA #### [facility] ([id number]) [address] [place], [place] [address]FVDEMGPCZJUSC METABOLIC PANELon 69-27-8452Zqvcetn [Mass/Vol]2.5 g/dLLow3.2-5.3ProMedTriHealth Good Samaritan HospitalComment on above:Performed By: #### XENIA, 80682-0, 73808-9, CBCA #### [facility] ([id number]) [address] [place], [place] [address]POB [Catalytic activity/Vol]68 U/UJyzscx59-742GfkFvthtpSouthwest General Health CenterComment on above:Performed By: #### XENIA, 56383-5, 99321-1, CBCA #### [facility] ([id number]) [address] [place], [place] [address]TDK [Catalytic activity/Vol]21 U/LNormal0-31PFort Hamilton HospitalComment on above:Performed By: #### XENIA, 16241-7, , CBCA #### [facility] ([id number]) [address] [place], [place] [address]Uqrjn gap [Moles/Vol]5 mmol/LNormal5-15ProSouthwest General Health CenterComment on above:Performed By: #### XENIA, 20155-5, , CBCA #### [facility] ([id number]) [address] [place], [place] [address]PXL [Catalytic activity/Vol]26 U/LNormal0-41ProSouthwest General Health CenterComment on above:Performed By: #### XENIA, 61536-0, , CBCA #### [facility] ([id number]) [address] [place], [place] [address]Afwndmvkm [Mass/Vol]0.5 mg/dLNormal0.3-1.2PFort Hamilton HospitalComment on above:Performed By: #### XENIA, 73647-1, , CBCA #### [facility] ([id number]) [address] [place], [place] [address]Jpfogpn [Mass/Vol]8.2 mg/dLLow8.5-10.5PFort Hamilton Hospital Comment on above:Performed By: #### XENIA, 44619-5, , CBCA #### [facility] ([id number]) [address] [place], [place] [address]Hdxylxzw [Moles/Vol]116 mmol/IDmpu35-449WysQdowotSouthwest General Health CenterComment on above:Performed By: #### CMP, 35998-8, , CBCA #### [facility] ([id number]) [address] [place], [place] [address]XX9 [Moles/Vol]25 mmol/OEabnxm94-47JwfDzikkqFort Hamilton Hospital Comment on above:Performed By: #### CMP, 75133-8, , CBCA #### [facility] ([id number]) [address] [facility] [place], [place] [address]Qkyysxwvcz [Mass/Vol]0.92 mg/dLNormal0.40-1.00Wayne HospitalComment on above:Result Comment: METHOD TRACEABLE TO IDMS STANDARD Performed By: #### XENIA, 69597-0, , CBCA #### [facility] ([id number]) [address] [place], [place] [address]UQU/1.73 sq M.predicted among non-blacks MDRD (S/P/Bld) [Vol rate/Area]71 mL/min/{1.73_m2}Normal>59ProSouthwest General Health CenterComment on above:Result Comment: Reported eGFR is based on the CKD-EPI 2020 equation that does not use a race coefficient.Performed By: #### XENIA, 53149-0, , CBCA #### [facility] ([id number]) [address] [facility] [place], [place] [address]Mrjnnkm [Mass/Vol]109 mg/dGPpfe07-99KrvXrdbsrSouthwest General Health Center Comment on above:Performed By: #### XENIA, 92656-0, , CBCA #### [facility] ([id number]) [address] [facility] [place], [place] [address]Laupfulda [Moles/Vol]3.6 mmol/LNormal3.5-5.0ProSouthwest General Health CenterComment on above:Performed By: #### XENIA, 49433-7, , CBCA #### [facility] ([id number]) [address] [facility] [place], [place] [address]Dojlkiv [Mass/Vol]6.6 g/dLNormal6.0-8.0ProSouthwest General Health CenterComment on above:Performed By: #### XENIA, 93217-2, , CBCA #### [facility] ([id number]) [address] [place], [place] [address]Pakbmt [Moles/Vol]146 mmol/YZpsjwe580-554WohDpfhsk Baypark HospitalComment on above:Performed By: #### XENIA, 25093-6, , CBCA #### [facility] ([id number]) [address] [place], [place] [address]Wqok nitrogen [Mass/Vol]10 mg/dLNormal5-23ProSouthwest General Health CenterComment on above:Performed By: #### XENIA, 59795-3, , CBCA #### [facility] ([id number]) [address] [place], [place] [address]Coynvwb.ionized (Bld) [Moles/Vol]on 15-72-7439WZWUIUFE ICA4.8 mg/dLNormal4.5-5.3ProMedica Santiam HospitalComment on above:Performed By: #### XENIA, 74298-7, , CBCA #### [facility] ([id number]) [address] [place], [place] [address]Moasegm Glucometer (BldC) [Mass/Vol]on 52-97-2237Ploxvci [Mass/Vol]111 mg/fJBsto18-38RleRcuxdgSouthwest General Health CenterGlucose [Mass/Vol]105 mg/lOKggo85-36JapRtsrenSouthwest General Health CenterMAGNESIUMon 35-76-6332Qvuvyuere [Mass/Vol]2.4 mg/dLNormal1.8-2.6ProSouthwest General Health CenterComment on above: Performed By: #### XENIA, 23081-9, , CBCA #### [facility] ([id number]) [address] [place], [place] [address]Dixbfrdsb [Mass/Vol]2.5 mg/dLNormal1.8-2.6ProSouthwest General Health CenterComment on above:Performed By: #### XENIA, 35744-1, , CBCA #### [facility] ([id number]) [address] [place], [place] [address]BBPZASWJGGgb 73-09-0211Snwbtwzgx [Mass/Vol]2.5 mg/dLNormal 2.4-4.9ProSouthwest General Health CenterComment on above:Performed By: #### XENIA, 00000- 0, 71676-9, CBCA #### [facility] ([id number]) [address] [place], [place] [address]QLQLCXOCAql 36-64-8272Muaixkphd [Moles/Vol]3.9 mmol/LNormal 3.5-5.0ProSouthwest General Health CenterComment on above:Performed By: #### XENIA, 42874- 0, 93898-9, CBCA #### [facility] ([id number]) [address] [place], [place] [address]IM CHEST 1 VWon 43-03-7227JT CHEST 1 VWXR CHEST 1 VW CHEST 1 VIEW HISTORY: Acute respiratory failure COMPARISON: 04/16/2023 FINDINGS: Stable lines and tubes. Mild pulmonary vascular congestion/edema. Bibasilar opacities may representatelectasis or pneumonia, improved. No pleural effusions or pneumothorax. IMPRESSION: * Improved bibasilar opacities. No other significant change. Finalized by Dharmesh Graves MD on 04/17/2023 5:44 AMNormalProSouthwest General Health CenterARTERIAL BLOOD GASon 70-90-8831BPGSL'S TESTPassNormalProSouthwest General Health CenterComment on above:Performed By: #### XENIA, 57556-9, 37593-8, CBCA #### [facility] ([id number]) [address] [place], [place] [address]GJAG,DEFICIT3.0 MMOL/LHigh0.0-2.0[facility] Comment on above:Performed By: #### XENIA, 33820-9, 24222-5, CBCA #### [facility] ([id number]) [address] [place], [place] [address]Rhhx xiphnqlvbae41.6 [degF]Xuzams42.0[facility] Comment on above:Performed By: #### XENIA, 90994-0, 86826-0, CBCA #### [facility] ([id number]) [address] [place], [place] [address]QDJ6 (Bld) [Moles/Vol]22.9 mmol/GZcjrqs21-57DjaIladmoSouthwest General Health CenterComment on above:Performed By: #### CMP, 41291-9, 16512-3, CBCA #### [facility] ([id number]) [address] [place], [place] [address]ZBPH. O2 CONC.60 %NormalProSouthwest General Health CenterComment on above:Performed By: #### CMP, 95186-4, 91618-3, CBCA #### [facility] ([id number]) [address] [place], [place] [address]Opaugg (Bld) [Partial pressure]76 mm[Hg]Rot00-843WnfTpmilySouthwest General Health CenterComment on above:Performed By: #### XENIA, 60067-2, 65679-2, CBCA #### [facility] ([id number]) [address] [place], [place] [address]Wzsisk saturation in Blood94.0 %Normal>90ProSouthwest General Health CenterComment on above:Performed By: #### XENIA, 46457-7, 09195-6, CBCA #### [facility] ([id number]) [address] [place], [place] [address]JSDQAM SOURCEVentNormalProSouthwest General Health CenterComment on above:Performed By: #### CMP, 41867-3, 29130-2, CBCA #### [facility] ([id number]) [address] [place], [place] [address]TQX495.7 SOVNBpcwon66-15XjzNdocqy Baypark HospitalComment on above:Performed By: #### CMP, 85113-7, 22989-8, CBCA #### [facility] ([id number]) [address] [place], [place] [address]bN (Bld)7.336 [pH]Low7.350-7.450ProSouthwest General Health Center Comment on above:Performed By: #### CMP, 41216-7, 43641-9, CBCA #### [facility] ([id number]) [address] [place], [place] [address]LHEBIP SITELRadNormalWayne HospitalComment on above: Performed By: #### XENIA, 83598-9, , CBCA #### [facility] ([id number]) [address] [place], [place] [address]DMETFK TYPEARTERIALNormalWayne HospitalComment on above:Performed By: #### XENIA, 88521-4, , CBCA #### [facility] ([id number]) [address] [place], [place] [address]DIM AND AUTO DIFFon 97-68-8000VMYVDLMW BASOPHIL0.0 X10E9/LNormal 0.0-0.2PFort Hamilton HospitalComment on above:Performed By: #### XENIA, 49912- 0, , CBCA #### [facility] ([id number]) [address] [place], [place] [address]CCOGWFVU NEUTROPHIL3.2 X10E9/LNormal1.5-6.6Wayne HospitalComment on above:Performed By: #### XENIA, 06188-2, , CBCA #### [facility] ([id number]) [address] [place], [place] [address]Tntfzawnjqxp Ql (Bld)2+AbnormalNONEPFort Hamilton Hospital Comment on above:Performed By: #### XENIA, 54319-4, , CBCA #### [facility] ([id number]) [address] [place], [place] [address]Xamcgcbha/100 WBC (Bld)0.2 %[facility] Comment on above:Performed By: #### XENIA, 96496-3, , CBCA #### [facility] ([id number]) [address] [place], [place] [address]Xuoxzkewmqd (Bld) [#/Vol]0.0 10*3/uLNormal0.0-0.4ProSouthwest General Health CenterComment on above:Performed By: #### CMP, 53046-5, , CBCA #### [facility] ([id number]) [address] [place], [place] [address]Byyheiulowh/100 WBC (Bld)0.0 %[facility] Comment on above:Performed By: #### CMP, 25792-3, , CBCA #### [facility] ([id number]) [address] [place], [place] [address]Grhexpgkehz distribution width (RBC) [Ratio]22.0 %High11.5-15.0 ProMedica Santiam HospitalComment on above:Performed By: #### CMP, 50310-1, , CBCA #### [facility] ([id number]) [address] [facility] [place], [place] [address]Pdttiuaukh (Bld) [Volume fraction]27.6 %Zye59-58NuxQnkgmdSouthwest General Health CenterComment on above:Performed By: #### CMP, 04942-4, , CBCA #### [facility] ([id number]) [address] [place], [place] [address]Knifyrdltq (Bld) [Mass/Vol]8.8 g/dLLow11.7-15.5PFort Hamilton HospitalComment on above:Performed By: #### CMP, 91925-7, , CBCA #### [facility] ([id number]) [address] [place], [place] [address]Xqtqnpcvzso (Bld) [#/Vol]0.7 10*3/uLLow1.0-3.5PFort Hamilton HospitalComment on above:Performed By: #### CMP, 73077-6, , CBCA #### [facility] ([id number]) [address] [place], [place] [address]Fsjoltdbexs/100 WBC (Bld)17.8 %[facility]Way[facility] Comment on above:Performed By: #### CMP, 80793-2, 42060-9, CBCA #### [facility] ([id number]) [address] [place], [place] [address]GGE (RBC) [Entitic mass]27.3 jzJlrknl12-81JttWxjqvyWayne HospitalComment on above:Performed By: #### CMP, 11496-0, 49214-2, CBCA #### [facility] ([id number]) [address] [place], [place] [address]RNPA (RBC) [Mass/Vol]31.9 g/lCJzq06-22PrwKjbphaWayne Hospital Comment on above:Performed By: #### CMP, 59712-3, 64448-7, CBCA #### [facility] ([id number]) [address] [place], [place] [address]MSQ (RBC) [Entitic vol]86 lWTtclhh40-051HpuGhwvwr [facility] HospitalComment on above:Performed By: #### CMP, 69329-2, , CBCA #### [facility] ([id number]) [address] [place], [place] [address]Kptmeonay (Bld) [#/Vol]0.2 10*3/uLNormal0-0.9Wayne HospitalComment on above:Performed By: #### CMP, 02014-0, 26792-5, CBCA #### [facility] ([id number]) [address] [place], [place] [address]Sgmgppnnc/100 WBC (Bld)4.7 %[facility] Comment on above:Performed By: #### CMP, 20516-6, 13508-2, CBCA #### [facility] ([id number]) [address] [place], [place] [address]Xlmzfyztpwq/100 WBC (Bld)77.3 %[facility] Comment on above:Performed By: #### CMP, 23945-0, 38955-4, CBCA #### [facility] ([id number]) [address] [place], [place] [address]Oewpndvb mean volume (Bld) [Entitic vol]7.6 fLNormal7-12 ProMSumma Health Barberton CampusComment on above:Performed By: #### CMP, 51944-4, 93390-8, CBCA #### [facility] ([id number]) [address] [place], [place] [address]Xwfcotlvq (Bld) [#/Vol]248 10*3/pUVkihri953-980ZaiRrqmfd [facility] HospitalComment on above:Performed By: #### CMP, 48445-8, 29149-3, CBCA #### [facility] ([id number]) [address] [place], [place] [address]MVL COUNT3.22 X10E12/LLow3.80-5.20ProSouthwest General Health Center Comment on above:Performed By: #### XENIA, 74057-5, 58524-3, CBCA #### [facility] ([id number]) [address] [place], [place] [address]HTD (Bld) [#/Vol]4.2 10*3/uLNormal4.0-11.0ProSouthwest General Health CenterComment on above:Performed By: #### XENIA, 57594-9, , CBCA #### [facility] ([id number]) [address] [place], [place] [address]VXLJCSJIHLNNH METABOLIC PANELon 68-07-9887Jiwlgqt [Mass/Vol]2.4 g/dLLow3.2-5.3ProMedica Santiam HospitalComment on above:Performed By: #### CMP, 16321-2, 62653-3, CBCA #### [facility] ([id number]) [address] [place], [place] [address]IIU [Catalytic activity/Vol]61 U/FXshtrq99-781SfzIgvjgcSouthwest General Health CenterComment on above:Performed By: #### CMP, 15904-0, 77145-5, CBCA #### [facility] ([id number]) [address] [place], [place] [address]VSN [Catalytic activity/Vol]20 U/LNormal0-31PFort Hamilton HospitalComment on above:Performed By: #### XENIA, 66602-2, , CBCA #### [facility] ([id number]) [address] [place], [place] [address]Todba gap [Moles/Vol]6 mmol/LNormal5-15ProSouthwest General Health CenterComment on above:Performed By: #### XENIA, 97916-4, , CBCA #### [facility] ([id number]) [address] [place], [place] [address]OWE [Catalytic activity/Vol]25 U/LNormal0-41ProSouthwest General Health CenterComment on above:Performed By: #### XENIA, 64746-9, , CBCA #### [facility] ([id number]) [address] [place], [place] [address]Xuuemaghw [Mass/Vol]0.6 mg/dLNormal0.3-1.2PFort Hamilton HospitalComment on above:Performed By: #### XENIA, 04909-3, , CBCA #### [facility] ([id number]) [address] [place], [place] [address]Gzytomq [Mass/Vol]8.2 mg/dLLow8.5-10.5PFort Hamilton Hospital Comment on above:Performed By: #### XENIA, 93697-7, , CBCA #### [facility] ([id number]) [address] [place], [place] [address]Xuptatdk [Moles/Vol]115 mmol/HCton95-059HtrWwxociSouthwest General Health CenterComment on above:Performed By: #### XENIA, 75578-3, , CBCA #### [facility] ([id number]) [address] [place], [place] [address]FG3 [Moles/Vol]24 mmol/VFkgjhk35-12CqxQycnjeFort Hamilton Hospital Comment on above:Performed By: #### CMP, 73354-9, , CBCA #### [facility] ([id number]) [address] [place], [place] [address]Gaemwgllmq [Mass/Vol]1.19 mg/dLHigh0.40-1.00ProSouthwest General Health CenterComment on above:Result Comment: METHOD TRACEABLE TO IDMS STANDARD Performed By: #### XENIA, 62751-7, , CBCA #### [facility] ([id number]) [address] [place], [place] [address]TPR/1.73 sq M.predicted among non-blacks MDRD (S/P/Bld) [Vol rate/Area]52 mL/min/{1.73_m2}Low>59ProSouthwest General Health CenterComment on above: Result Comment: Reported eGFR is based on the CKD-EPI 2020 equation that does not use a race coefficient.Performed By: #### XENIA, 85729-3, , CBCA #### [facility] ([id number]) [address] [place], [place] [address]Sduzdvf [Mass/Vol]95 mg/bMOasefq76-59RjqBpqhnnSouthwest General Health Center Comment on above:Performed By: #### XENIA, 32031-0, , CBCA #### [facility] ([id number]) [address] [address] [place], [place] [address]Caqmvlkiw [Moles/Vol]3.7 mmol/LNormal3.5-5.0ProSouthwest General Health CenterComment on above:Performed By: #### XENIA, 05905-5, , CBCA #### [facility] ([id number]) [address] [place], [place] [address]Hpnjdqf [Mass/Vol]6.0 g/dLNormal6.0-8.0ProSouthwest General Health CenterComment on above:Performed By: #### XENIA, 55919-7, , CBCA #### [facility] ([id number]) [address] [place], [place] [address]Nwftoj [Moles/Vol]145 mmol/LGrukxm929-055GhsCvsxgz [facility] HospitalComment on above:Performed By: #### XENIA, 75249-8, , CBCA #### [facility] ([id number]) [address] [place], [place] [address]Jini nitrogen [Mass/Vol]8 mg/dLNormal5-23ProSouthwest General Health CenterComment on above:Performed By: #### XENIA, 10582-9, , CBCA #### [facility] ([id number]) [address] [place], [place] [address]Mlbupgj Glucometer (BldC) [Mass/Vol]on 53-30-9934Qkkappl [Mass/Vol]137 mg/jKLghb14-96LlgUrddnxSouthwest General Health CenterGlucose [Mass/Vol]88 mg/dL Pvlkfz49-85SmkPbukloSouthwest General Health CenterGlucose [Mass/Vol]102 mg/jXOvtn45-17 ProMedica Santiam HospitalMAGNESIUMon 22-42-6156Lcqiyyidt [Mass/Vol]2.4 mg/dL Normal1.8-2.6ProSouthwest General Health CenterComment on above:Performed By: #### XENIA, 35746-5, , CBCA #### [facility] ([id number]) [address] [facility] [place], [place] [address]Wzfaellzb [Mass/Vol]1.9 mg/dLNormal1.8-2.6ProSouthwest General Health CenterComment on above:Performed By: #### XENIA, 23009-0, , CBCA #### [facility] ([id number]) [address] [place], [place] [address]SSJHQNCBNen 95-21-4148Igfxdhdmy [Moles/Vol]4.1 mmol/LNormal 3.5-5.0ProSouthwest General Health CenterComment on above:Performed By: #### XENIA, 54083- 0, , CBCA #### [facility] ([id number]) [address] [place], [place] [address]Soiipwkge [Moles/Vol]3.6 mmol/LNormal3.5-5.0Wayne HospitalComment on above:Performed By: #### XENIA, 38392-1, 51593-6, CBCA #### [facility] ([id number]) [address] [place], [place] [address]TFMLQPPDAULMkg 21-53-1046Waystkwlxyls [Mass/Vol]262 mg/dLHigh 27-150ProSouthwest General Health CenterComment on above:Performed By: #### XENIA, 01415- 0, , CBCA #### [facility] ([id number]) [address] [facility] [place], [place] [address]IX CHEST 1 VWon 80-18-2881YX CHEST 1 VWXR CHEST 1 VW HISTORY: Acute respiratory failure [...] Francisco Javier Aceves MD on 04/16/2023 5:28 AMNormalProSouthwest General Health CenterARTERIAL BLOOD GASon 15-71-9870RXDMB'S TESTPassNormalWayne HospitalComment on above:Performed By: #### ABG #### [facility] ([id number]) [address] [place], [place] [address]KMGK,DEFICIT2.0 MMOL/LNormal0.0-2.0[facility] Comment on above:Performed By: #### ABG #### [facility] ([id number]) [address] [place], [place] [address]Uwug omtuiafuity89.6 [degF]Qeeuzw68.0[facility] Comment on above:Performed By: #### ABG #### [facility] ([id number]) [address] [place], [place] [address]XIX6 (Bld) [Moles/Vol]24.5 mmol/TOxtbku72-90VayUbmnwd [facility] HospitalComment on above:Performed By: #### ABG #### [facility] ([id number]) [address] [place], [place] [address]CMBA. O2 CONC.60 %NormalProCleveland Clinic [facility] HospitalComment on above:Performed By: #### ABG #### [facility] ([id number]) [address] [place], [place] [address]Eyhwri (Bld) [Partial pressure]79 mm[Hg]Zwp24-482DbzOefgqa [facility] HospitalComment on above:Performed By: #### ABG #### [facility] ([id number]) [address] [place], [place] [address]Iffjqj saturation in Blood94.0 %Normal>90ProCleveland Clinic [facility] HospitalComment on above:Performed By: #### ABG #### [facility] ([id number]) [address] [place], [place] [address]GUSNHY SOURCEVentNormalProC[facility] Clinic [facility] HospitalComment on above:Performed By: #### ABG #### [facility] ([id number]) [address] [place], [place] [address]YRT470.9 MNZSAbmn41-69YaeFznjwc [facility] HospitalComment on above:Performed By: #### ABG #### [facility] ([id number]) [address] [place], [place] [address]gJ (Bld)7.317 [pH]Low7.350-7.450ProC[facility] Clinic [facility] Hospital Comment on above:Performed By: #### ABG #### [facility] ([id number]) [address] [place], [place] [address]TQBDHC SITELRadNormalProCleveland Clinic [facility] HospitalComment on above: Performed By: #### ABG #### [facility] ([id number]) [address] [place], [place] [address]VMNGZS TYPEARTERIALNormalProCleveland [facility] HospitalComment on above:Performed By: #### ABG #### [facility] ([id number]) [address] [place], [place] [address]SZBME CULTUREon [id number] identified Aer cx Nom (Bld) CULTURE RESULTS NO GROWTH 5 DAYSNormalProSouthwest General Health CenterBacteria identified Aer cx Nom (Bld)CULTURE RESULTS NO GROWTH 5 DAYSNormalProSouthwest General Health CenterCBC AND AUTO DIFFon 04-15-2023 ABSOLUTE BASOPHIL0.0 X10E9/LNormal0.0-0.2PFort Hamilton HospitalComment on above:Performed By: #### CMP, 89540-9, , CBCA #### [facility] ([id number]) [address] [facility] [place], [place] [address]FIXARSDJ NEUTROPHIL1.9 X10E9/LNormal1.5-6.6ProSouthwest General Health CenterComment on above:Performed By: #### XENIA, 44315-5, , CBCA #### [facility] ([id number]) [address] [facility] [place], [place] [address]Grjlzqkdlmoq Ql (Bld)2+AbnormalNONEPFort [facility] Hospital Comment on above:Performed By: #### XENIA, 41578-4, , CBCA #### [facility] ([id number]) [address] [place], [place] [address]Svqmkxttc/100 WBC (Bld)0.2 %[facility] Comment on above:Performed By: #### XENIA, 87945-6, , CBCA #### [facility] ([id number]) [address] [place], [place] [address]Jvbxflxpmst (Bld) [#/Vol]0.0 10*3/uLNormal0.0-0.4Wayne HospitalComment on above:Performed By: #### CMP, 30817-6, , CBCA #### [facility] ([id number]) [address] [place], [place] [address]Ztofomslxhj/100 WBC (Bld)0.0 %[facility] Comment on above:Performed By: #### CMP, 95276-3, 99250-9, CBCA #### [facility] ([id number]) [address] [place] [place], [place] [address]Acbsgefznhm distribution width (RBC) [Ratio]22.0 %High11.5-15.0 ProMSumma Health Barberton CampusComment on above:Performed By: #### [facility], 95316-0, 99988-2, CBCA #### [facility] ([id number]) [address] [place], [place] [address]Ocbiscurug (Bld) [Volume fraction]28.7 %Sse43-96EajStjqwtSouthwest General Health CenterComment on above:Performed By: #### [facility], 04021-0, , CBCA #### [facility] ([id number]) [address] [facility] [place], [place] [address]Livefgxotp (Bld) [Mass/Vol]9.1 g/dLLow11.7-15.5PFort Hamilton HospitalComment on above:Performed By: #### [facility], 20205-9, , CBCA #### [facility] ([id number]) [address] [facility] [place], [place] [address]Cngxuojjgbl (Bld) [#/Vol]0.6 10*3/uLLow1.0-3.5PFort Hamilton HospitalComment on above:Performed By: #### [facility], 18966-7, , CBCA #### [facility] ([id number]) [address] [place], [place] [address]Lkplnxgltoq/100 WBC (Bld)22.8 %NormalProSouthwest General Health Center Comment on above:Performed By: #### [facility], 65231-9, 68374-1, CBCA #### [facility] ([id number]) [address] [place], [place] [address]OJH (RBC) [Entitic mass]27.1 deKiyqzv12-70AedTsqusuSouthwest General Health CenterComment on above:Performed By: #### CMP, 25280-3, , CBCA #### [facility] ([id number]) [address] [place], [place] [address]LWDF (RBC) [Mass/Vol]31.8 g/sBYdo22-30EejNnkeffWayne Hospital Comment on above:Performed By: #### CMP, 23555-6, 03608-5, CBCA #### [facility] ([id number]) [address] [place], [place] [address]ZOI (RBC) [Entitic vol]85 pPClclcp83-787GzkWwctsr Baypark HospitalComment on above:Performed By: #### CMP, 95933-7, 15522-1, CBCA #### [facility] ([id number]) [address] [place], [place] [address]Atlawphis (Bld) [#/Vol]0.2 10*3/uLNormal0-0.9Wayne HospitalComment on above:Performed By: #### CMP, 22190-6, , CBCA #### [facility] ([id number]) [address] [place], [place] [address]Catavwbrt/100 WBC (Bld)7.7 %NormalWayne Hospital Comment on above:Performed By: #### CMP, 54395-9, , CBCA #### [facility] ([id number]) [address] [facility] [place], [place] [address]Wfgapzkskzz/100 WBC (Bld)69.3 %[facility] Comment on above:Performed By: #### CMP, 61580-5, , CBCA #### [facility] ([id number]) [address] [place], [place] [address]Fhnxhbqs mean volume (Bld) [Entitic vol]7.5 fLNormal7-12 ProMSumma Health Barberton CampusComment on above:Performed By: #### CMP, 82925-9, 61149-8, CBCA #### [facility] ([id number]) [address] [place], [place] [address]Yoxfeiejd (Bld) [#/Vol]222 10*3/gJSijdtf530-694XriYtdhyn Baypark HospitalComment on above:Performed By: #### XENIA, 07026-9, , CBCA #### [facility] ([id number]) [address] [place], [place] [address]ZLN COUNT3.36 X10E12/LLow3.80-5.20ProSouthwest General Health Center Comment on above:Performed By: #### XENIA, 18800-6, , CBCA #### [facility] ([id number]) [address] [place], [place] [address]AVJ (Bld) [#/Vol]2.7 10*3/uLLow4.0-11.0ProSouthwest General Health CenterComment on above:Performed By: #### XENIA, 05128-7, , CBCA #### [facility] ([id number]) [address] [place], [place] [address]BMYFHHBZQLNZB METABOLIC PANELon 68-29-5533Vvzzgio [Mass/Vol]2.4 g/dLLow3.2-5.3PFort Hamilton HospitalComment on above:Performed By: #### XENIA, 31160-2, , CBCA #### [facility] ([id number]) [address] [place], [place] [address]JMN [Catalytic activity/Vol]63 U/SVeuhhr72-764GwzDvewsaSouthwest General Health CenterComment on above:Performed By: #### XENIA, 71508-6, , CBCA #### [facility] ([id number]) [address] [place], [place] [address]WWR [Catalytic activity/Vol]18 U/LNormal0-31PFort Hamilton HospitalComment on above:Performed By: #### XENIA, 86999-0, , CBCA #### [facility] ([id number]) [address] [place], [place] [address]Oknza gap [Moles/Vol]6 mmol/LNormal5-15ProSouthwest General Health CenterComment on above:Performed By: #### CMP, 23820-8, , CBCA #### [facility] ([id number]) [address] [place], [place] [address]XDH [Catalytic activity/Vol]24 U/LNormal0-41ProSouthwest General Health CenterComment on above:Performed By: #### CMP, 65259-8, 36544-5, CBCA #### [facility] ([id number]) [address] [place], [place] [address]Rxptzwjng [Mass/Vol]0.7 mg/dLNormal0.3-1.2PFort Hamilton HospitalComment on above:Performed By: #### CMP, 17479-1, , CBCA #### [facility] ([id number]) [address] [place], [place] [address]Gnhdnfx [Mass/Vol]7.8 mg/dLLow8.5-10.5PFort Hamilton Hospital Comment on above:Performed By: #### CMP, 50677-0, , CBCA #### [facility] ([id number]) [address] [place], [place] [address]Nqaxksjx [Moles/Vol]115 mmol/RMjkc51-705RuoSboncfSouthwest General Health CenterComment on above:Performed By: #### CMP, 61172-3, , CBCA #### [facility] ([id number]) [address] [place], [place] [address]VL5 [Moles/Vol]25 mmol/BRtosgb86-69WdxPhygcqFort Hamilton Hospital Comment on above:Performed By: #### CMP, 19049-0, , CBCA #### [facility] ([id number]) [address] [place], [place] [address]Eguqczxvnr [Mass/Vol]1.43 mg/dLHigh0.40-1.00ProSouthwest General Health CenterComment on above:Result Comment: METHOD TRACEABLE TO IDMS STANDARD Performed By: #### CMP, 13401-3, , CBCA #### [facility] ([id number]) [address] [facility] [address] [place], [place] [address]RJK/1.73 sq M.predicted among non-blacks MDRD (S/P/Bld) [Vol rate/Area]42 mL/min/{1.73_m2}Low>59ProSouthwest General Health CenterComment on above: Result Comment: Reported eGFR is based on the CKD-EPI 2020 equation that does not use a race coefficient.Performed By: #### XENIA, 91962-8, , CBCA #### [facility] ([id number]) [address] [facility] [place], [place] [address]Gljntrl [Mass/Vol]118 mg/sVYmyl41-22SctJpuzyoWayne Hospital Comment on above:Performed By: #### XENIA, 26691-0, , CBCA #### [facility] ([id number]) [address] [facility] [address] [place], [place] [address]Zwuegiipr [Moles/Vol]2.8 mmol/LLow3.5-5.0ProSouthwest General Health CenterComment on above:Performed By: #### XENIA, 51965-7, , CBCA #### [facility] ([id number]) [address] [place], [place] [address]Ugsxnlb [Mass/Vol]6.0 g/dLNormal6.0-8.0ProSouthwest General Health CenterComment on above:Performed By: #### XENIA, 22809-4, , CBCA #### [facility] ([id number]) [address] [place], [place] [address]Rhvhzm [Moles/Vol]146 mmol/BQeqzez383-129XioUpixip Baypark HospitalComment on above:Performed By: #### XENIA, 85246-4, , CBCA #### [facility] ([id number]) [address] [place], [place] [address]Mhcj nitrogen [Mass/Vol]11 mg/dLNormal5-23ProSouthwest General Health CenterComment on above:Performed By: #### XENIA, 87482-7, 02843-8, CBCA #### [facility] ([id number]) [address] [place], [place] [address]Btsfkzq Glucometer (BldC) [Mass/Vol]on 61-05-1485Gipauir [Mass/Vol]118 mg/rTScuo17-29YjbSugnymSouthwest General Health CenterGlucose [Mass/Vol]83 mg/dL Xjinrc15-28GjiUpktmmSouthwest General Health CenterGlucose [Mass/Vol]112 mg/xKKsio50-45 ProMSumma Health Barberton CampusGlucose [Mass/Vol]128 mg/lYXpdh42-82TtoEpuicxSouthwest General Health CenterLOWER RESPIRATORY CULTUREon 98-21-3158Aekenxvh identified Respiratory culture Nom (Sput)GRAM STAIN 0 to 1 WHITE BLOOD CELLS/LPF [...] PIPERACIL/TAZOBACTAM S 16 F TOBRAMYCIN S <=1 FSusceptibleWayne HospitalComment on above: Performed By: #### 624-7 #### [facility] ([id number]) [address], [address] [place], [place] [address]KWFTEFTIWfq 07-61-6863Qdnuklmdh [Mass/Vol]2.0 mg/dLNormal1.8-2.6 Wayne HospitalComment on above:Performed By: #### XENIA, 13942-3, 95887-3, CBCA #### [facility] ([id number]) [address] [place] [address]KVFT PCR NASALon 05-00-2567QFVH DNA HUBERT+probe Ql (Unsp spec) NegativeNormalNEGProSouthwest General Health CenterComment on above:Performed By: #### XENIA, 03032-1, , CBCA #### [facility] ([id number]) [address] [facility] [place], [place] [address]KOJQHEYCFst 86-34-2755Wiyathrok [Moles/Vol]3.8 mmol/LNormal 3.5-5.0ProSouthwest General Health CenterComment on above:Performed By: #### XENIA, 17472- 0, , CBCA #### [facility] ([id number]) [address] [facility] [place], [place] [address]Jrpyonsvg [Moles/Vol]3.5 mmol/LNormal3.5-5.0ProSouthwest General Health CenterComment on above:Performed By: #### XENIA, 40962-6, , CBCA #### [facility] ([id number]) [address] [facility] [place], [place] [address]Ijgnetbkzehsl IA [Mass/Vol]on 06-02-3173WUEYRWNUGPYAU0.57 ng/mL High<0.05ProSouthwest General Health CenterComment on above:Result Comment: NOTE <0.50 ng/mL - Low risk of severe sepsis and/or septic shock. <2.00 ng/mL - Recommend retesting within 6-24 hours. >2.00 ng/mL - High risk of sepsis and/or septic shock.Performed By: #### XENIA, 10737-1, , CBCA #### [facility] ([id number]) [address] [facility] [place], [place] [address]DS CHEST 1 VWon 25-64-1351LTUP-CoV-2 (COVID-19) RNA HUBERT+probe Ql (Unsp spec)XR CHEST 1 VW HISTORY: Pneumonia, COVID positive COMPARISON: Chest x-ray 04/14/2023 FINDINGS: Portable AP upright view of the chest was performed. Stable position of endotracheal tube, enteric tube and left jugular venous catheter. Postoperative changes compatible with CABG. Stable bilateral airspace disease. No significant pleural effusion or pneumothorax. IMPRESSION: * No significant interval change. Finalized by Francisco Javier Aceves MD on 04/15/2023 5:56 AMNormalProMedica Santiam HospitalXR lumbar spine 6V w bendingon 87-89-5837AD lumbar spine 6V w bending [facility] Main [address] [address] XRay Report Signed Patient: Monet Recinos MR#: [id number] 80 : 1960 Acct:[id number] Age/Sex: 62 / F ADM Date: 12/11/22 Loc: XD Room: Type: [facility] Attending Dr: John Carson MD Copies to: [...] Marlyn Samayoa M.D.12/11/2022 10:23 AM Dictation Location: [place] [address] Transcribed By: [facility] 12/11/22 1023 Dictated By: Marlyn Samayoa MD 12/11/22 1020 Signed By: 12/11/22 1023NoReg[facility] head/brain wo/w conon 48-25-0759MZ head/brain wo/w conFIRELANDS REG[facility] [place] [address] MRI Report Signed Patient: Monet Recinos MR#: [id number] 80 : 1960 Acct:[id number] Age/Sex: 61 / F ADM Date: 01/24/22 Loc: MR Room: Type: [facility] Attending Dr: Eric Huerta DO Copies to: [...] Jamie Oconnor M.D.01/24/2022 3:41 PM Dictation Location: [place] [address] Transcribed By: [facility] 01/24/22 1541 Dictated By: Jamie Oconnor II, MD 01/24/22 1537 Signed By: 01/24/[address] 1541[facility].Auto Diff 1on 01-07-2018 Auto Baso %0.6 %Normal0.2-2.0[facility]ier HospitalComment on above:Performed By: #### 4529210, 0918479, 3811277276, 2942796443, 5541768593, 938016037, 8558259, 70919224 ####[facility] (DEFAULT)[address] [place] [address] Auto Was[place] %6 %Normal1-12Magruder HospitalComment on above:Performed By: #### 3367702, 3882000, 1108132065, 7428631586, 0366759843, 267520460, 8881569, 02203779 ####[facility] (DEFAULT)[address] [place] [address] Auto Neut %54 %Jahdzm49-84Rrkcziog HospitalComment on above:Performed By: #### 7493807, 3080828, 3450480530, 4338254422, 6008227459, 873432379, 6596321, 82626308 ####[facility] (DEFAULT)[address] [place] [address] Baso Abs#0.0 m17Ceetvi9.0-0.2Magruder HospitalComment on above:Performed By: #### 8202967, 5323106, 1887653255, 7841121515, 1058526237, 643314225, 4106307, 82568632 ####[facility] (DEFAULT)[address] [place] [address] Eos Abs#0.1 f67Bbqgfv3.0-0.4Magruder HospitalComment on above:Performed By: #### 1816565, 4935900, 9914124202, 5637985270, 3660332502, 851872445, 5148950, 83257925 ####[facility] (DEFAULT)[address] [place] [address] Eosinophils/100 WBC Auto (Bld)1.4 %Normal0.9-4.0Magruder HospitalComment on above:Performed By: #### 1204447, 5501248, 8723286879, 1252573100, 0949626161, 115423868, 7765971, 55185607 ####[facility] (DEFAULT)[address] [place], [place] [address]Lymphocytes Auto #/vol (Bld)2.8 g79Dgdzlj6.3-2.9 [facility] HospitalComment on above:Performed By: #### 0247281, 7155476, 3038610415, 5100688770, 0325911501, 789860520, 0111714, 28995835 ####[facility] (DEFAULT)[address] [place], [place] [address]Lymphocytes/100 WBC Auto (Bld)39 %Dfndfw82-93Jktwbyuv HospitalComment on above:Performed By: #### 7575277, 9240956, 7750855858, 8900830447, 9419523289, 088794002, 3950879, 89591520 ####[facility] (DEFAULT)[address] [place] [address] Wasco Abs#0.4 k60Tkgjxe9.0-0.8[facility] HospitalComment on above:Performed By: #### 1275188, 8269249, 4877204668, 4228885853, 7648953122, 558729573, 8455861, 05082107 ####[facility] (DEFAULT)[address] [place] [address] Neut Abs#3.9 i09Hsayiu6.5-9.2Magrtoledo hospital HospitalComment on above:Performed By: #### 3432537, 8869345, 7660899424, 0029641506, 2007473695, 177749566, 8539073, 09508231 ####[facility] (DEFAULT)[address] [place] [address] Acet Levelon 25-99-5959Cvflziityccgd mass conc<47Hmakuc09-89Bltfibmr Hospital Comment on above:Performed By: #### 9407468, 7727122, 7284110459, 2487138575, 7270663196, 610413148, 1285629, 94863479 ####[facility] (DEFAULT)[address] [place], [place] [address]CBC w/ Auto Diffon 63-62-9882Glxspvzuhme distribution width Auto Ratio (RBC)17.0 %High11.5-15.0[facility] HospitalComment on above:Performed By: #### 3785578, 1143188, 6623919112, 8448534734, 3682550290, 678009971, 7114549, 21547440 ####[facility] (DEFAULT)[address] [place], [place] [address]Hematocrit Auto Volume Fraction (Bld)41.2 % High33.7-40.4[facility] HospitalComment on above:Performed By: #### 4760358, 6617256, 9011807462, 8971760548, 4514660643, 818226222, 8210313, 20943590 ####[facility] (DEFAULT)[address] [place], [place] [address]Hemoglobin mass conc (Bld)14.0 g/lOQwpial36.3-15.9[facility] HospitalComment on above: Performed By: #### 0160562, 2130868, 9592338078, 5730489987, 3809060638, 246528444, 7429258, 65494350 ####[facility] (DEFAULT)[address] [place], [place] [address]Man Diff?AutoNormalOhio State Health System HospitalComment on above:Performed By: #### 2406601, 8605074, 4899370798, 7588950244, 7985277446, 663649107, 1349928, 52519370 ####[facility] (DEFAULT)[address] [place], [place] [address]MCH Auto Entitic mass (RBC)29 acRpkdfh18-80Tmmassvw HospitalComment on above:Performed By: #### 7820538, 1313937, 5007943327, 8995127844, 1889601976, 473018210, 7736087, 07229152 ####[facility] (DEFAULT)[address] [place] [address]KVTA Auto mass conc (RBC)34 g/dL Ckjuvc74-20Eblvfzho HospitalComment on above:Performed By: #### 3195421, 3923128, 5776387362, 1922234351, 3133499586, 890013729, 9702593, 81172439 ####[facility] (DEFAULT)[address] [place], [place] [address]MCV Auto Entitic volume (RBC)84 aZTsrczf95-619Xiwqclyk HospitalComment on above:Performed By: #### 1880357, 4618876, 6827281831, 0655334698, 3577107474, 169901084, 3752138, 53119409 ####[facility] (DEFAULT)[address] [place] [address]Ywsdgdep mean volume Auto Entitic volume (Bld)9.8 fLNormal6.3-10.2 [facility] HospitalComment on above:Performed By: #### 1376762, 1683461, 1817021233, 7019745813, 1475147927, 047059658, 0420444, 50125190 ####[facility] (DEFAULT)[address] [place] [address]Deexheozi Auto #/vol (Bld)268 y59Cbkthy217-830Oqrokgav HospitalComment on above:Performed By: #### 1036723, 3410640, 2576714927, 9563681116, 4998234142, 388398263, 1724313, 15062027 ####[facility] (DEFAULT)[address] [place] [address] RBC Auto #/vol (Bld)4.90 o81Icemdb6.70-5.30[facility] HospitalComment on above: Performed By: #### 3610053, 3550320, 2017723100, 4144778405, 6672035149, 005457384, 7215340, 48300904 ####[facility] (DEFAULT)[address] [place] [address]VPK Auto #/vol (Bld)7.2 i45Dmpebbm Interpretation CodeOhio State Health System HospitalComment on above:Performed By: #### 0140431, 4371040, 6043631022, 8669505388, 3783782709, 259628551, 1938990, 07188217 ####[facility] (DEFAULT)[address] [place] [address]VWY Standardon 07-50-8136Kktz Total0.2 mg/dLLow0.3-1.2[facility] HospitalComment on above: Performed By: #### 8174687354, 1730695377 ####[facility] (DEFAULT)[address] [place] [address] 29650fAQT Non AA>60Invalid Interpretation Code [facility] HospitalComment on above:Performed By: #### 8478186787, 0249093273 ####[facility] (DEFAULT)[address] [place] [address] 04400tUGK AA>60 Invalid Interpretation CodeOhio State Health System HospitalComment on above:Result Comment: Chronic Kidney disease could be indicated at eGFRs of less than 60 ml/min/1.73m2. Kidney Failure is indicated at less than 15 ml/min/1.73m2 Performed By: #### 4069826775, 4008607138 ####[facility] (DEFAULT)[address] [place] [address]79[address]Uvghezp mass conc3.8 g/dLNormal3.5-5.0 [facility] HospitalComment on above:Performed By: #### 7665175814, 1713926182 ####[facility] (DEFAULT)[address] [place] [address] Albumin/Globulin mass ratio1.1 {ratio}Low1.4-2.6[facility] HospitalComment on above:Performed By: #### 5400881631, 4389203586 ####[facility] (DEFAULT)[address] [place] [address] 57512Jiq Phos81 IU/CQxabdh87-68 [facility] HospitalComment on above:Performed By: #### 9135978786, 4862169854 ####[facility] (DEFAULT)[address] [place] [address] 53396EZG/SGPT 15.0 IU/RJuxuky56.0-54.0[facility] HospitalComment on above:Performed By: #### 8584878887, 5044488764 ####[facility] (DEFAULT)[address] [place] [address] 688[address]Hqkky gap 3 molar conc13.0 mmol/LNormal5.0-19.0[facility] HospitalComment on above:Performed By: #### 4668217682, 7785434764 ####[facility] (DEFAULT)[address] [place] [address] 88293XJQ/SGOT18 IU/LNormal 15-41[facility] HospitalComment on above:Performed By: #### 4587369944, 6933338443 ####[facility] (DEFAULT)[address] [place] [address] 27858Rsgxfqs mass conc8.8 mg/dLLow8.9-10.3[facility] HospitalComment on above:Performed By: #### 8839816807, 4452599867 ####[facility] (DEFAULT)[address] [place] [address] 16330Wessziol molar kuft188 mmol/EAqzvlf826-648Dxhqszip Hospital Comment on above:Performed By: #### 9170556606, 8352224523 ####[facility] (DEFAULT)[address] [place] [address] 45472RO8 molar conc23 mmol/LNormal 21-32[facility] HospitalComment on above:Performed By: #### 2542412991, 3794947147 ####[facility] (DEFAULT)[address] [place] [address]111 Creatinine mass conc0.77 mg/dLNormal0.60-1.30[facility] HospitalComment on above: Performed By: #### 5576545454, 6470276514 ####[facility] (DEFAULT)[address] [place] [address] 80729Drvftkwx Calculated mass conc (S)3.6 g/dL Normal1.5-4.3[facility] HospitalComment on above:Performed By: #### 4419655226, 6162481567 ####[facility] (DEFAULT)[address] [place] [address] 90072Rnqpvhu mass conc91.0 mg/sWBrlkoy09.0-118.0[facility] HospitalComment on above:Performed By: #### 9874098864, 4334863500 ####[facility] (DEFAULT)[address] [place] [address] 41138Qceoeziyef032 mOsm/LInvalid Interpretation CodeParkview Health Montpelier HospitalComment on above:Performed By: #### 3675290572, 5049290786 ####[facility] (DEFAULT)[address] [place] [address] 25610Duflrfqck molar conc4.0 mmol/LNormal3.6-5.1MMiddletown Hospital Comment on above:Performed By: #### 3565312676, 8894029780 ####[facility] (DEFAULT)[address] [place] [address] 37738Aqngfqg mass conc7.4 g/dLNormal 6.5-8.1MMiddletown HospitalComment on above:Performed By: #### 4088628205, 8440030239 ####[facility] (DEFAULT)[address] [place] [address] 81907Ngwjxw molar roev328.0 mmol/NOtvzjg315.0-144.0[facility] HospitalComment on above:Performed By: #### 6986809586, 6778829714 ####[facility] (DEFAULT)[address] [place] [address] 78134Mspu nitrogen mass conc17 mg/dL Normal8-26[facility] HospitalComment on above:Performed By: #### 2267454062, 8326715703 ####[facility] (DEFAULT)[address] [place] [address] 29125Anxd nitrogen/Creatinine mass ratio22.0 mg/mgHigh4.6-16.2MMiddletown Hospital Comment on above:Performed By: #### [id number], 8146675838 ####[facility] (DEFAULT)[address] [place] [address] 29468FV Clinical Summaryon 06-10-2185ZU Clinical SummaryParkview Health [facility] - Emergency [address] [place] [address] ed Clinical SummaryPERSON INFORMATIONName: MONET RECINOS Age: 57 Years Sex: FEMALEDOB: [birth year] MRN: Acct#:Visit Reason: General medical; MEDICAL CLEARENCE Arrival: 01/07/18 13:27:00 Discharge: 01/07/18 15:22:00LOS: 000 01:55 Check In: 01/07/18 13:27:00 Checkout:01/07/18 15:22:00[address] [facility] [address]PDW: Provider, NonePROVIDER INFORMATIONProvider Role Assigned UnassignedRylee Gaxiola ED PA 01/07/18 13:36:17Magrum RN, Adrian ED Nurse 01/07/18 13:37:42VITALS INFORMATIONVital Sign Triage LatestTemperature TympanicTemperature Temporal ArteryPulse Rate 80 bpm 80 bpmO2 Sat 97 % 97 %Respiratory Rate 18 br/min 18 br/minBlood Pressure 117 mmHg/90 mmHg 117 mmHg/90 mmHgMEDICAL INFORMATIONM edications Given:Allergy Information:Morphine Sulfate; penicillinPHYSICIAN DOCUMENTATIONPatient: MONET RECINOS : 57 years Sex: FEMALE : 64Associated Diagnoses: Suicidal thoughts; Depression, majorAuthor: Todd Gaxiola InformationTime seen: Date & time 01/07/18 13:40:00.History source: Patient.Arrival mode: Private vehicle.History limitation: None.Additional information: Chief Complaint from Nursing Triage Note : Chief Sxtyxvbme03/13/18 13:28 EDT Chief Complaint sent from [facility] for medical clearance, depressed/anxiety .History of Present [id number] female presents to the emergency department for medical clearance for psychiatr ic admission. Patient is feeling very depressed. She states she feels like she just wants to go to sleep and never wake up. She was seen at [facility] and will be admitted to [address]Review of SystemsConstitutional symptoms: No fever, no chills.Skin symptoms: dry skin, no jaundice, no rash.ENMT symptoms: No ear pain, no sore throat, no nasal congestion.Respiratory symptoms: Noshortness of breath, no cough.Cardiovascular symptoms: No chest pain, no palpitations, no tachycardia, no syncope.Gastrointestinal symptoms: No abdominal pain,Neurologic symptoms: No headache, no dizziness.Psychiatric symptoms: Depression, No substance abuse, Additional review of systems information: All other systems reviewed and otherwise negative.Health StatusAllergies:No active allergies havebeen recorded..Past Medical/ Family/ Social HistoryMedical history:No active [...] no acute distress.Skin: Warm, dry, pink, intact.Head: No rmocephalic, atraumatic.Eye: Pupils are equal, round and reactive to light, normal conjunctiva.Ears, nose, mouth and throat: Oral mucosa moist.Cardiovascular: Regular rate and rhythm, No murmur, Normal peripheral perfusion, No edema.Respiratory: Lungs are clear to auscultation, respirations are non-labored, breath sounds are equal, Symmetrical chest wall expansion.Back: Nontender, Normal range ofmotion.Musculoskeletal: Normal ROM, normal strength.Neurological: Alert and oriented to person, place, time, and situation, normal motor observed, normal speech observed, normal coordination observed. Psychiatric: Mood and affect: Depressed, flat, Behavior: Relaxed, Abnormal / Psychotic thoughts: Suicidal.Medical Decision MakingDifferential Diagnosis: Depression, suicide risk.Documents reviewed: Emergency department nurses' notes, [facility] Counselling.Orders Launch OrdersLaboratory:Urinalysis with Culture, if [...] Lab Collect.Results review: Lab results : Lab [id number]/13/18 14:19 EDT Sodium Level 138.0 mmol/L Potassium Level 4.0 mmol/L Chloride Level 106 mmol/L CO2 23 mmol/L Anion Gap 13.0 mmol/L Glucose Level 91.0 mg/dL BUN 17 mg/dL Creatinine Level 0.77 mg/dL BUN/Creat Ratio 22.0 HI eGFR AA >60 mL/min/1.73m2 NA eGFR Non AA >60 mL/min/1.73m2 NA Calcium Level 8.8 mg/dL LOWAlk Phos 81 IU/L AST/SGOT 18 IU/L ALT/SGPT [...] % Auto Lymph % 39 % Auto Wasco % 6 % Auto Eos % 1.4 % Auto Baso % 0.6 % Neut Abs# 3.9 x103/mcL Lymph Abs# 2.8 x103/mcL Wasco Abs# 0.4 x103/mcL Eos Abs# 0.1 x103/mcL [...] Nitrite NEGATIVE UA Leuk Est NEGATIVE UA BilirubinNEGATIVE Urine Source Clean Catch Urine Source Clean [...] then he is to be taken to [facility] for psychiatric admission. Patient with very flat affect. Slowto answer quesions. Urine tox is negative. ETOH, [...] She will transport the patient directly to [address] as arrabnged by counsellor and accepted by Dr. Hackett.Impression and PlanDiagnosisSuicidal thoughts (FCR85-OT R45.851, Discharge, Medical)Depression, major (XXX42-YE F32.9, Discharge, Medical)PlanDisposition: Transfer to other location:Time: 01/07/18 15:05:00, Facility name: [facility], Accepted by: Dr. Hackett, [address] [place] [address], Time 01/07/18 14 :50:00, Referral to [facility].Patient was given the following educational materials: Major Depressive Disorder, Adult.Follow up with: Report directly to [facility] main entrance to admitting office. You will be taken to [address] [place] [address] for admission by hospital personnel 01/07/2018 4:00 PM; .Counseled: Patient, Friend, Regarding diagnosis, Regarding diagnostic results, Regarding treatment plan, Regarding prescription, Patient indicated understanding of instructions.DISCHARGE INFORMATION:Discharge Disposition: Disch /Transfer to Psychiatric FacilityDischarge Location: [facility] -SdkyPATIENT EDUCATION INFORMATIONInstructions: Major Depressive Disorder, AdultFollow- Up:With: Address: When:Report directly to [facility] main entrance to admitting office. You will be taken to [address] [place] [address] for admission by hospital personnel 01/07/2018 4:00 PMDIAGNOSIS:Depression, major; Suicidal thoughtsPatient Understands:Comment:[facility] HospitalED Note - Otheron [id number] Note - [id number]- I faxed over patient information at this time to [facility],to Adrian Cordonfor medical clearance[Electronically Signed on: 01/07/2018 14:57 EDT] Familia Robertson[Verified on: 01/07/2018 14:57 EDT] [facility] ED Note - Physicianon [id number] Note - PhysicianPatient: MONET RECINOS : 57 years Sex: FEMALE : 64Associated Diagnoses: Suicidal thoughts; Depression, majorAuthor: Todd Gaxiola InformationTime seen: Date & time 01/07/18 13:40:00.History source: Patient.Arrival mode: Private vehicle.History limitation: None.Additional information: Chief Complaint from Nursing Triage Note : Chief Dvyrvmvlw92/13/18 13:28 EDT Chief Complaint sent from [facility] for medical clearance, depressed/anxiety .History of Present Rtjypph18-qaos-bxg female presents to the emergency department for medical clearance for psychiatric admission. Patient is feeling very depressed. She states she feels like she just wants to go to sleep and never wake up. She was seen at [facility] and will be admitted to [address]Review of SystemsConstitutional symptoms: No fever, no [...] Examination Vital SignsVital Signs01/07/18 13:28 EDT Temperature Oral37 DegC Peripheral Pulse Rate 80 bpm Respiratory [...] Normal ROM, normal strength.Neurological: Alert and oriented toperson, place, time, and situation, normal motor observed, normal speech observed, normal coordination observed.Psychiatric: Mood and affect: Depressed, flat, Behavior: Relaxed, Abnormal / Psychotic thoughts: Suicidal.Medical Decision MakingDifferential Diagnosis: Depression, suicide risk.Documentsreviewed: Emergency department nurses' notes, [facility].Orders Launch OrdersLaboratory:Urinalysis with Culture, if indicated Standard (Order): Urine, Stat collect, 01/07/18 13:43 EDT, Nurse collectTSH w/ Reflex to FT4 (Order): Blood, Stat collect, 01/07/18 13:43 EDT, Lab CollectTriage Panel 12 (Order): Urine, Stat collect, 01/07/18 13:43 EDT, Nurse collect, Clean CatchSalicylate Level(Order): Blood, Stat collect, 01/07/18 13:43 EDT, Lab [...] Lab Collect.Results review: Lab results : Lab Bslbeccro65/13/18 14:19 EDT Sodium Level 138.0 mmol/L Potassium [...] 277 mOsm/L NA TSH 1.54 mcIU/mL WBC 7.2x103/mcL RBC 4.90 x106/mcL Hgb 14.0 gm/dL Hct 41.2 % HI MCV 84 fL MCH 29 pg MCHC 34 gm/dL RDW 17.0 % HI Platelet 268 x103/mcL MPV 9.8 fL Auto Neut % 54 % Auto Lymph % 39 % Auto Wasco % 6 % Auto Eos % 1.4 % Auto Baso % 0.6 % Neut Abs# 3.9 x103/mcL Lymph Abs# 2.8 x103/mcL Wasco Abs# 0.4 x103/mcL Eos Abs# 0.1 x103/mcL Baso Abs# 0.0 x103/mcL Salicylate Lvl <4.0 mg/dL Acetaminoph Lvl <10 mcg/mL Ethanol Level <5.0 mg/dL Tube Collected Yes Tube Collected Yes01/07/18 13:55 EDT UA Color YELLOW UAClarity CLEAR UA Glucose NEGATIVE UA Ketones NEGATIVE [...] U Amph Scr Negative U Carol Scr NegativeU Benzodia Scr Negative U Cocaine Scr Negative U Methadone Scr Negative U Opiate Scr Negative U Phen cyclidine Scr Negative U Propoxyphene Scr Negative U Methamp Scrn Negative U Tricyclic Antidepress Scr Negative.Reexamination/ ReevaluationThis patient was brought to the emergency department by a friend for complaints of major depression and suicidal thoughts. Plan is for medical clearance and then he is to be taken to [address] at [facility] for psychiatric admission. Patient with very flat [...] WBC 67.2 and H&H at 14 and 41.2.Urinalysis without leukocytes or nitrites. Patient is here with a very good friend who is willing to stay with her. She will transport the patient directly to [address] as arrabnged by counsellor and accepted by Dr. Hackett.Impression and PlanDiagnosisSuicidal thoughts ([id number]-VD R45.851, Discharge, Medical)Depression, major (ESF24-TY F32.9, Discharge, Medical)PlanDisposition: Transfer to other location: Time: 01/07/18 15:05:00, Facility name: [facility], Accepted by: Dr. Hackett, [address] [place] [address], Time 01/07/18 14:50:00, Referral to [facility].Patient was given the following educational materials: Major Depressive Disorder, Adult.Follow up with: Report directly to [facility] main entrance toadmitting office. You will be taken to [address] [place] [address] for admission by hospital personnel 01/07/2018 4:00 PM; .Counseled: Patient, Friend, Regarding diagnosis, Regarding diagnostic results, Regarding treatment plan, Regarding prescription, Patient indicated understanding of instructions.[Electronically Signed on: 01/07/2018 15:18 EDT] Rylee Gaxiola[Electro nically Signed on: 01/07/2018 20:18 EDT] Nadege Fernandez MD[Verified on: 01/07/2018 15:18 EDT] Rylee GaxiolaOhioHealth [facility] HospitalED Note-Nursingon [id number] Note-NursingPt is transferred to [place] per private vehicle to be admitted to [address] [place] [address] room 1, bed #2. Pt's friendis driving her to [place].The pt andher friend were instructed to report to [place] front lobby, admitting department and then the pt. will be escorted to [address] [place] [address] per Security. pt had not beloingins with her at this time but the clothining on her back.[facility] HospitalED Note-NursingPt sitting on the cart in ER room 4. Upon entering the room the pt did establish eye contact but she is blunted and does not initiate any conversation. She will look at you and she will answer questions. She admits that she just came from [facility] and she states I don't feel right . Pt states she is taking her meds as she is supposed to but she feels like I want to go to sleep and not wake up Pt states she does feel depressed and she does not feel suicidal, she just feel sad. Her HEALTH SERVICE COORDINATOR is Dr. Rodriguez and she can not recall her Psychiatrist's name.Her friend brought lto the ER from [facility]. [facility] Patient Education Noteon [id number] Patient Education NoteEducation MaterialsMental and Behavioral HealthMajor Depressive Disorder, AdultMajor [...] occur once (single episode major depressive disorder) ana may occur multiple times (recurrent major depressive [...] traits and behaviors learned from others.? Physical factors,such as:? Differences in the part of your [...] of certain brain chemicals.? Traumatic events in childhoo d, especially abuse or the loss of a [...] of harming others.? Physical agitation or weakness.? Isolation.Severecases of MDD may also occur with other symptoms, such as:? Delusions or hallucinations, in which you imagine things that are not real (psychotic depression).? Low-level depression that lasts at leasta year (chronic depression or persistent depressive disorder).? Extreme sadness and hopelessness (melancholic depression).? Trouble speaking and moving (catatonic depression).How is this diagnosed?This condition may be diagnosed based on:? Your symptoms.? Your medical history, including your mentalhealth history. This may involve tests to evaluate your mental health. You may be asked questions ab out your lifestyle, including any drug and alcohol use, and how long you have had symptoms of MDD.?A physical exam.? Blood tests to rule out other conditions.You must have a depressed mood and at least four other MDD symptoms most of the day, nearly every day in the same 2-week timeframe before your health care provider can confirm a diagnosis of MDD.How is this treated?This condition is usuallytreated by mental health professionals, such as psychologists, psychiatrists, and clinical social workers. You may need more than one type of treatment. Treatment may include: ? Psychotherapy. This is also called talk therapy or counseling. Types of psychotherapy include:? Cognitive behavioral therapy (CBT). This type of therapy teaches you to recognize unhealthyfeelings, thoughts, and behaviors, and replace them with [...] to your normal activities as told by yourhealth care provider.? Exercise regularly and spend time outdoors as told by your health care provider.General instructions? Take krsl-lkx-mahnktw and prescription medicines only as told by your health care provider.? Do not drink alcohol. If you drink alcohol, limit your alcohol intake to no more than 1 drink a day for non women and 2 drinks a day for men. One drink equals 12 oz of beer,5 oz of wine, or 1? oz of hard liquor. Alcohol can affect any antidepressant medicines you are taking. Talk to your health care provider about your alcohol use.? Eat a healthy diet and get plenty of sleep.? Find activities that you enjoy doing, and make time to do them.? Consider joining a support g roup. Your health care provider may be able to recommend a support group.? Keep all follow-up visits as told by your health care provider. This is important.Where to find more information:National Platina on Mental Illness? www.isadora.orgU.S. National Hugo of Mental Health? www.nimh.nih.govNational Suicide Prevention Lifeline? 0-014-843-TALK (4633). This is free, 24-hour help.Contact a healthcare provider if:? Your symptoms get worse.? You develop new symptoms.Get help right away if:? You self-harm.? You have serious thoughts about hurting yourself or others.? You see, hear, taste, smell, or feel things that are not present (hallucinate).This information is not intended to replace advice given to you by your health care provider. Make sure you discuss any questions you have with yourhealth care provider.Document Released: 08/08/2013 Document Revised: 12/18/2016 Document Reviewed: 10/22/2016Cathi Interactive Patient Education ? 2016 [employer].[facility] HospitalED Patient Summary on 20-12-1247WK Patient SummaryParkview Health [facility] - Emergency [address] [place] [address] pATIENT DISCHARGE INSTRUCTIONSPatient InformationName: MONET RECINOS Age: 57 YearsDate of : [birth year]MRN:[id number] For Visit: General medical; MEDICAL CLEARENCEArrival Time: 01/07/18 13:27:00Phone: Primary Care Physician: Provider, NoneAttending Physician: Nadege Fernandez MDComment:Visit Diagnosis:Diagnoses This Visit Depression, major (F32.9) General medical ([id number]) Suicidal thoughts (R45.851)If you received any narcotics, sedation, or any other medication that causes drowsiness for the next 24 hours, unless otherwise directed:? Donot drive a car.? Do not operate machinery such as power tools, lawn mowers, drills, sewing machines, or stoves? Avoid alcoholic beverages and drugs for allergies, nerves, or sleep? Do not make important personal or business decisions or sign any legal documentsWith: Address: When:Report directly to [facility] main entrance to admitting office. You will be taken to [address] [place] [address] for admission byhospital personnel 01/07/2018 4:00 PMMedication Information:The exam and treatment you received today in the [facility] Emergency Department were for an urgent problem and are not intended as complete care. It is important for you to follow up with a doctor, nurse practitioner, or physician?s maintenance assistant for ongoing care. If your symptoms [...] we can reach you if necessary.[facility] Emergency Departmenthas provided you with a complete list of medications post discharge. Please inform your log handling equipment operator/provider of your visit and for further instruction on these medications. Any specific questionsregarding your chronic medications and dosages should be discussed with your primary care physician(s) and/or pharmacist. Medications to Continue That Have Not ChangedOther MedicationsclonazePAM (KlonoPIN) Oral 3 times a day.lurasidone (Latuda) Oral every day.mirtazapine (Remeron) Oral once a day (at bedtime).Visit InformationAllergies:Substance Reaction Symptoms Type CommentsMorphine Sulfate Drugpenicillin DrugVital [...] activities. MDD may be mild, moderate, or severe.It may occur once (single episode major depressive disorder) or it may occur multiple times (recurrent major depressive disorder).What are the causes?The exact cause of this condition is not known. MD D is most likely caused by a combination [...] (chronic) medical or psychiatric illnesses.? Social factors. Traumaticexperiences or major life changes may play a role in the development of MDD.What increases the risk?This condition is more likely to develop in women. The following factors may also make you more likely to develop MDD:? A family history of depression.? Troubled family relationships.? Abnormally lowlevels of certain brain chemicals.? Traumatic events in [...] of MDD typically include:? Constant depressed or irr itable mood.? Loss of interest in things and activities.MDD symptoms may also include:? Sleeping oreating too much or too little.? Unexplained weight [...] to recognize unhealthy feelings, thoughts, and behaviors, a nd replace them with positive thoughts and actions.? Interpersonal therapy (IPT). This helps you toimprove the way you relate to and communicate with others.? Family therapy. This treatment includesmembers of your family.? Medicine to treat anxiety and depression, or to help you control certain em otions and behaviors.? Lifestyle changes, such as:? Limiting alcohol and drug use.? Exercising regularly.? Getting plenty of sleep.? Making healthy eating choices.? Spending more time outdoors.Treatments involving stimulation of the brain can be used in situations with extremely severe symptoms, orwhen medicine or other therapies do not work over time. These treatments include electroconvulsive therapy, transcranial magnetic stimulation, and vagal nerve stimulation.Follow these instructions athome:Activity? Return to your normal activities as told by your health care provider.? Exercise regularly and spend time outdoors as told by your health care provider.General instructions? Take bqmj-vag-yrgdbjn and prescription medicines only as told by [...] a support group. Your health care provider maybe able to recommend a support group.? Keep all follow-up visits as told by your health care provider. This is important.Where to find more information:National Platina on Mental Illness? www.isadora.orgU.S. National Hugo of Mental Health? www.nimh.nih.govNational Suicide Prevention Lifeline? 6-769-627-TALK (0778). This is free, 24-hour help.Contact a health [...] Reviewed: 10/22/2016Cathi Interactive Patient Education ? 2017 [employer]. Viruses or BacteriaWhat?s got you sick?Antibiotics only treat bacterial infections. Viral illnesses cannot be treated with antibiotics. When an antibiotic is not presc ribed, ask your healthcare professional for tips on [...] ServicesCenters for Disease Control and Prevention December 2013NoOhioHealth O'Bleness HospitalEthanol.on 12-12-7369Yvwpuad Level<5.3Sejdwf2.0-5.0[facility] HospitalComment on above:Performed By: #### [id number], [id number] ####[facility] (DEFAULT)[address] [place] [address] 17431Eqpgi Redon 83-18-9465Iiml CollectedYesInvalid Interpretation [facility] Rita's Medical CenterComment on above:Performed By: #### [id number], [id number], [id number], [id number], [id number], [id number] ####[facility] (DEFAULT)[address] [place] [address] 58241Kprxyuxsdmld 01-07-2018 Salicylate Lvl<4.8Jjwtgp9.0-30.0[facility] Montpelier HospitalComment on above:Result Comment: Salicylate ranges less than 30 mg/dL are considered to be therapeutic. Levels greater than 30 mg/dL are considered toxic and levels greater than 60 mg/dL may be lethal.Performed By: #### [id number], [id number], [id number], [id number], [id number], [id number] ####[facility] (DEFAULT)[address] [place] [address] 07941DFI w/ Reflex to FT4on 30-32-4777Lruczzwfjkh Qn1.54 mcIU/mLNormal0.45-5.33[facility]ier HospitalComment on above:Result Comment: General Population (males and non- females, aged 21-88) 0.45 - 5.33 Females, 1st Trimester 0.05 - 3.70 Females, 2nd Trimester 0.31 - 4.35 Females, 3rd Trimester 0.41 - 5.18Performed By: #### [id number], [id number] ####[facility] (DEFAULT)[address] [place] [address] 58047Ulutosrk Noteon 03-59-8210Pverzzst Note [id number]#1.00OTGTLicking Memorial Hospital Triage Panel 1220-69-6723Bwyphcq mass concMarietta Memorial Hospital Comment on above:Performed By: #### [id number], [id number] ####[facility] (DEFAULT)[address] [place] [address] 51881Lkvyul Internal ControlPass [facility] HospitalComment on above:Performed By: #### [id number], [id number] ####[facility] (DEFAULT)[address] [place] [address] 56803J Amph ScrNegativeEast Liverpool City HospitalComment on above:Performed By: #### [id number], [id number] ####[facility] (DEFAULT)[address] [place] [address] 75193H Carol ScrNegativeEast Liverpool City HospitalComment on above: Performed By: #### [id number], [id number] ####[facility] (DEFAULT)[address] [place] [address] 72747H Benzodia ScrNegMercy Health Clermont Hospital Comment on above:Performed By: #### [id number], [id number] ####[facility] (DEFAULT)[address] [place] [address] 05378O Cannab ScrnNegativeNormal Ottoniel HospitalComment on above:Performed By: #### [id number], [id number] ####[facility] (DEFAULT)[address] [place] [address] 57604K Cocaine ScrNegativeNormalMagruder HospitalComment on above:Performed By: #### [id number], [id number] ####[facility] (DEFAULT)[address] [place] [address] 18689R Methadone ScrNegativeNormalMagruder HospitalComment on above: Performed By: #### [id number], [id number] ####[facility] (DEFAULT)[address] [place] [address] 67191U Methamp ScrnNegativeNormalMagrtoledo hospital Hospital Comment on above:Performed By: #### [id number], [id number] ####[facility] (DEFAULT)[address] [place] [address] 56060Z Opiate ScrNegativeNormal Ottoniel HospitalComment on above:Performed By: #### [id number], [id number] ####[facility] (DEFAULT)[address] [place] [address] 85339V Oxycod ScrNegativeNormalMagrtoledo hospital HospitalComment on above:Performed By: #### [id number], [id number] ####[facility] (DEFAULT)[address] [place] [address] 00574Z Phencyclidine ScrNegativeNormalMagruder HospitalComment on above:Performed By: #### [id number], [id number] ####[facility] (DEFAULT)[address] [place] [address] 72166N Tricyclic Antidepress Scr NegativeNormalMagruder HospitalComment on above:Performed By: #### [id number], [id number] ####[facility] (DEFAULT)[address] [place] [address] 39996Zveqk SourceClean CatchNormalMagruder HospitalComment on above:Performed By: #### [id number], [id number] ####[facility] (DEFAULT)[address] [place] [address] 02421IS w Culture if Ind Standardon 69-46-8371Qndgedwzqo UANormalMagrtoledo hospital HospitalComment on above:Performed By: #### [id number], [id number] ####[facility] (DEFAULT)[address] [place] [address] 57716Vyzkb Nom (U)YELLOWInvalid Interpretation CodeOhio State Health System HospitalComment on above:Performed By: #### [id number], [id number] ####[facility] (DEFAULT)[address] [place] [address] 29077Onkapht?Not IndicatedInvalid Interpretation CodeOhio State Health System HospitalComment on above:Performed By: #### [id number], [id number] ####[facility] (DEFAULT)[address] [place] [address] 35311Llzdorc mass conc (U)NegativeInvalid Interpretation Code [facility] HospitalComment on above:Performed By: #### [id number], [id number] ####[facility] (DEFAULT)[address] [place] [address] 34696Rjdopfh Ql (U)NegativeInvalid Interpretation CodeOhio State Health System HospitalComment on above: Performed By: #### [id number], [id number] ####[facility] (DEFAULT)[address] [place] [address] 59842Cjoqd?Not IndicatedInvalid Interpretation CodeOhio State Health System HospitalComment on above:Performed By: #### [id number], [id number] ####[facility] (DEFAULT)[address] [place] [address] 05366W[address] BilirubinNegativeNormalMagrtoledo hospital HospitalComment on above:Performed By: #### [id number], [id number] ####[facility] (DEFAULT)[address] [place] [address] 06142PU BloodNegativeNormalNEGATIVEOhio State Health System HospitalComment on above:Performed By: #### [id number], [id number] ####[facility] (DEFAULT)[address] [place] [address] 27370TC ClarityCLEARNormalCLEAR [facility] HospitalComment on above:Performed By: #### [id number], [id number] ####[facility] (DEFAULT)[address] [place] [address] 07221CI Leuk EstNegativeNormalNEGSumma Health Akron Campus HospitalComment on above:Performed By: #### [id number], [id number] ####[facility] (DEFAULT)[address] [place] [address] 62406BQ NitriteNegativeNormalNEGATIVEOhio State Health System HospitalComment on above:Performed By: #### [id number], [id number] ####[facility] [facility] (DEFAULT)[address] [place] [address] 44090BM pH6.0Invalid Interpretation Code5-8[facility] HospitalComment on above:Performed By: #### [id number], [id number] ####[facility]DEFAULT)[address] [place] [address] 41808TA ProteinNegativeNormalNEGATIVEOhio State Health System HospitalComment on above:Performed By: #### [id number], [id number] ####[facility] (DEFAULT)[address] [place] [address] [id number] Spec Grav>=1.030Invalid Interpretation Code 1.001-1.035[facility] HospitalComment on above:Performed By: #### [id number], [id number] ####[facility] (DEFAULT)[address] [place] [address] 64283CS Urobilinogen0.2 mg/dLNormal0.2-1.0[facility] HospitalComment on above: Performed By: #### [id number], [id number] ####[facility] (DEFAULT)[address] [place] [address] 23927Mgowq SourceClean CatchNormalOhio State Health System HospitalComment on above:Performed By: #### [id number], [id number] ####[facility] (DEFAULT)[address] [place] [address] 64985 Vital Signs Date TimeVital SignValuePerforming TqguwxxtcVbgvzlaj14-93-0018 12:10-0400Body .3 cmRisa Summers MD Work Phone: [facility]10-13-2025 12:10-0400Body mass index (BMI) [Ratio]35.14 kg/m2Risa Summers MD Work Phone: [facility]10-13-2025 12:10-0400Body fhkurn730 kgRisa Summers MD Work Phone: [phone] [place], [place] 6477110-13-2025 12:10-0400Diastolic blood xowmwgxk31 mm[Hg]Risa Summers MD Work Phone: [phone] [place], [place] 6477110-13-2025 12:10-0400Heart rate 96 /minImad Melina MIJARES Work Phone: [phone]10-13-2025 12:10-2168FoW3% (BldA) [Mass fraction]97 %Risa Summers MD Work Phone: [phone] [place], [place] 6477110-13-2025 12:10-0400Systolic blood noczsczk416 mm[Hg]Risa Summers MD Work Phone: [phone] [place], [place] 6477109-09-2025 11:48-0400Body jwisjr003.[address]09-09-2025 11:48-0400Body mass index (BMI) [Ratio]36.92 kg/m2Pmh [address] [place], [place] 6762109-09-2025 11:48-0400Body ixhhwu191.[address] [place], [place] 6762108-25-2025 13:11-0400Body wgddee359.[address]08-25-2025 13:11-0400Body mass index (BMI) [Ratio] 36.62 kg/m2Pmh [address] [place], [place] 6762108-25-2025 13:11-0400Body essrwc756.49 kg P[address] [place], [place] 6762108-21-2025 12:37-0400Body xezrdn204.3 Clare Cardozo DO Work Phone: [facility]08-21-2025 12:37-0400Body mass index (BMI) [Ratio]35.66 kg/m2Rajni Cardozo DO Work Phone: [facility] Wpkfmm85-50-0642 12:37-0400Body nodqapdalsf20.49 [degF]Rajni Cardozo DO Work Phone: [facility] Cchrrf16-13-2527 12:37-0400Body achwyz788.59 kgRajni Cardozo DO Work Phone: [facility] Iwlauf23-37-9007 12:37-0400Diastolic blood htquwicn28 mm[Hg]Rajni Cardozo DO Work Phone: [facility] Ebrxme56-40-4463 12:37-0400Heart rate 88 /minRajni Cardozo DO Work Phone: [facility] Dtewhc37-11-3334 12:37-0400 Respiratory rate20 /minRajni Cardozo DO Work Phone: [facility]08-21-2025 12:37-8738UmB9% (BldA) [Mass fraction]95 %Rajni Cardozo DO Work Phone: [facility] Zmqyns51-36-0701 12:37-0400Systolic blood mm[Hg]Rajni Cardozo DO Work Phone: [facility]08-11-2025 09:21-4789UjT8% (BldA) [Mass fraction]92 %[facility] HospitalComment on above:Performed By: #### VBG #### [facility] ([facility]) [address] [place] [address] [id number] 13:28-8378HlN8% (BldA) [Mass fraction]94 %[facility] HospitalComment on above:Performed By: #### BMP #### [facility] ([facility]) [address] [place] [address] [id number] 07:16-2362PeA6% (BldA) [Mass fraction]100 %MYRIAM [facility] CampusComment on above:Performed By: #### VBG ####[facility] ([facility])[address] [facility].[place], [place] [address] [id number] 13:57-0400Body encvlw441.3 cmOdessa Salcedouiett OUTBOARD MOTOR TESTER-FUEL CELL DESIGNER Work Phone: [phone]-The Bar MethodBrecksville [facility] HospitalData Driven Delivery System Oftuiv57-07-8867 13:57-0400Body mass index (BMI) [Ratio]37.97 kg/n9ArruerOdessa Salcedouikilo OUTBOARD MOTOR TESTER-FUEL CELL DESIGNER Work Phone: [phone]-The Bar MethodR[facility] CenterUpower Ilxczx49-74-1139 13:57-0400Body ujegnc860.62 kgOdessa Salcedouiett OUTBOARD MOTOR TESTER-FUEL CELL DESIGNER Work Phone: [phone]-The Bar MethodR[facility] CenterUpower Wkszwl10-44-9882 13:57-0400Diastolic blood gqfudavj36 mm[Hg]Odessa Khouryett OUTBOARD MOTOR TESTER-FUEL CELL DESIGNER Work Phone: [phone])189-The Bar MethodR[facility] CenterUpower Zluucc50-47-8263 13:57-0400Heart rate 96 /minOdessa Salcedouiett OUTBOARD MOTOR TESTER-FUEL CELL DESIGNER Work Phone: [phone]-The Bar MethodRutland [facility] Medical CenterUpower Vsatck58-03-8174 13:57-3597XqL4% (BldA) [Mass fraction]92 %Odessa Salcedouiett OUTBOARD MOTOR TESTER-FUEL CELL DESIGNER Work Phone: [phone]-The Bar MethodRut[facility] Medical CenterUpower Memgrq34-86-7268 13:57-0400Systolic blood cwnytsoc453 mm[Hg]Odessa Salcedouiett OUTBOARD MOTOR TESTER-FUEL CELL DESIGNER Work Phone: [facility] Grxpvh12-85-4469 14:17-0400Body ndehpj243.3 cmRajni Yuhas DO Work Phone: [facility] HospitalData [facility] Delivery [facility] Zdtirk78-33-6151 14:17-0400Body mass index (BMI) [Ratio]40.38 kg/m2Rajni Yuhas DO Work Phone: [facility] HospitalData [facility] Yxxxtw26-18-9405 14:17-0400Body qguabpnyqae24.4 [degF]Rajni Cardozo DO Work Phone: [facility] Hpkmud31-18-0045 14:17-0400Body unqvyt285.1 kgRajni Cardozo DO Work Phone: [facility] Jtnzsx07-11-4766 14:17-0400Diastolic blood pyizzhtq43 mm[Hg]Rajni Cardozo DO Work Phone: [facility] Piqfur25-73-7493 14:17-0400Heart rate 90 /minRajni Cardozo DO Work Phone: [facility] Hctahk85-50-3200 14:17-0400 Respiratory rate20 /minJoabby Cardozo DO Work Phone: [facility] Xcosrw44-48-9584 14:17-3190RhS0% (BldA) [Mass fraction]92 %Rajni Cardozo DO Work Phone: [facility] Dzphdg58-35-0109 14:17-0400Systolic blood sgbjawlq426 mm[Hg]Rajni Cardozo DO Work Phone: [facility] Lyymjw52-29-6127 16:17-0400Body qsrasz376.3 cmRajni Cardozo DO Work Phone: [facility] HospitalData [facility] Zdjmty33-04-9978 16:17-0400Body mass index (BMI) [Ratio]38.5 kg/m2Rajni Cardozo DO Work Phone: [facility] Qwpexe14-91-4906 16:17-0400Body fzdnkmzlocr00.29 [degF]Rajni Cardozo DO Work Phone: [facility] HospitalData [facility] Onoeva27-21-4541 16:17-0400Body pmmuet934.3 kgRajni Cardozo DO Work Phone: [facility]Data [facility] Cgonec70-32-9371 16:17-0400Diastolic blood mm[Hg]Rajni Cardozo DO Work Phone: [facility] Zvztsq68-05-6912 16:17-0400Heart rate 77 /minRajni Cardozo DO Work Phone: [facility] Nyyzme52-43-6606 16:17-0400 Respiratory rate20 /minRajni Cardozo DO Work Phone: [facility]Data [facility] Nyogou01-80-2921 16:17-1700OmE0% (BldA) [Mass fraction]94 %Rajni Cardozo DO Work Phone: [facility] Iljefd88-63-5684 16:17-0400Systolic blood cgsrjpyy550 mm[Hg]Rajni Cardozo DO Work Phone: [facility] Vcgtac12-04-7806 11:44-0400Body .3 cmJoabby Perrys DO Work Phone: [facility] Sgktld80-82-2278 11:44-0400Body mass index (BMI) [Ratio]36.4 kg/m2Joabby Perrys DO Work Phone: [facility]Data [facility] Gghdpc12-85-5994 11:44-0400Body uvckbgrzmbw10.9 [degF]Rajni Cardozo DO Work Phone: [facility] Bfeteb21-47-4199 11:44-0400Body ygujai098.86 kgRajni Cardozo DO Work Phone: [facility] Bifzuc07-86-7206 11:44-0400Diastolic blood rnjhwxub12 mm[Hg]Rajni Cardozo DO Work Phone: [facility] Pxpymw02-91-0015 11:44-0400Heart rate 90 /minRajni Cardozo DO Work Phone: [facility] Sryapw76-10-5030 11:44-0400 Respiratory rate20 /minRajni Perrys DO Work Phone: [facility] HospitalData [facility] Ursfqc36-26-0451 11:44-4840XxL9% (BldA) [Mass fraction]97 %Rajni Cardozo DO Work Phone: [facility]06-13-2025 11:44-0400Systolic blood lxesssti782 mm[Hg]Rajni Cardozo DO Work Phone: [facility]05-28-2025 15:18-0400Body .3 cmLeayvette Guerrero DO Work Phone: [facility] NetworkRbvjgvkigo35-90-4474 15:18-0400Body mass index (BMI) [Ratio]36.71 kg/k2MmbbpzSydnie Guerrero DO Work Phone: [facility] NetworkFitguefbef89-32-8392 15:18-0400Body sehxdt042.76 kgSydnie Guerrero DO Work Phone: [facility] NetworkAhyukeowbs03-08-4252 15:18-0400Diastolic blood zutvxiwv77 mm[Hg]Sydnie Guerrero DO Work Phone: [facility] NetworkPfbwwcmwsc01-54-8260 15:18-0400Heart rate93 /min Sydnie Guerrero DO Work Phone: [facility] NetworkXbuzhhizbz05-64-4239 15:18-8805XsD3% (BldA) [Mass fraction]92 %Sydnie Guerrero DO Work Phone: [facility] NetworkLipncmfcxk37-69-4092 15:18-0400Systolic blood ytshbarr668 mm[Hg]Sydniearianna Guerrero DO Work Phone: [facility] NetworkDybcsufxdn24-98-2486 11:05-0400Body gydulf081.3 cmMyriam Peacock MD Work Phone: [facility]05-08-2025 11:05-0400Body mass index (BMI) [Ratio]36.77 kg/d4DqwkwMyriam Peacock MD Work Phone: [facility]05-08-2025 11:05-0400Body sgzdee258.95 kgMyriam Peacock MD Work Phone: [facility]05-08-2025 11:05-0400Diastolic blood mm[Hg]Myriam Peacock MD Work Phone: [facility]05-08-2025 11:05-0400Heart rate 96 /minMyriam Peacock MD Work Phone: [facility]05-08-2025 11:053202UxV8% (BldA) [Mass fraction]97 %Myriam Peacock MD Work Phone: [facility]05-08-2025 11:05-0400Systolic blood yewjnkcp511 mm[Hg]Myriam Peacock MD Work Phone: [facility] Uykiqy29-77-1182 13:09-0400Body .3 cmJoabby Cardozo DO Work Phone: [facility]Data [facility] Iinquz33-23-8527 13:09-0400Body mass index (BMI) [Ratio]35.21 kg/m2Joabby Cardozo DO Work Phone: [facility]Data [facility] Iqtpit57-99-5956 13:09-0400Body yyyurfvfydb52.1 [degF]Rajni Cardozo DO Work Phone: [facility]Data [facility] Utgmwp92-15-1843 13:09-0400Body .14 kgJoabby Cardozo DO Work Phone: [facility] Pbbcmt98-74-2587 13:09-0400Diastolic blood qgrdnuja27 mm[Hg]Rajni Cardozo DO Work Phone: [facility]Data [facility] Igiang21-23-8960 13:09-0400Heart rate 97 /minRajni Cardozo DO Work Phone: [facility] Pdvqmy98-06-5014 13:09-1678SrW3% (BldA) [Mass fraction]95 %Rajni Cardozo DO Work Phone: [facility] HospitalData [facility] Sjumwc87-25-6027 13:09-0400Systolic blood glgecvbo757 mm[Hg]Rjani Cardozo DO Work Phone: [facility]11-21-2024 13:00-0500Body mgkrza959.3 cmLeayvette Guerrero DO Work Phone: [facility] NetworkNlhpaozwey51-36-2305 13:00-0500Body mass index (BMI) [Ratio]33.82 kg/h7CzanjpSydnie Guerrero DO Work Phone: [facility] NetworkKsakacujlk77-45-6892 13:00-0500Body ucklyv601.87 kgSydnie Guerrero DO Work Phone: [facility] NetworkEcdkvzvsab37-05-7857 13:00-0500Diastolic blood lfddwamm68 mm[Hg]Sydnie Guerrero DO Work Phone: [facility] NetworkBbmqbnobpx95-52-3009 13:00-0500Heart htzt547 /min Sydnie Guerrero DO Work Phone: [facility] NetworkXqqiexullq78-01-1154 13:00-6906ImC8% (BldA) [Mass fraction]89 %Sydnie Guerrero DO Work Phone: [place] [address]Rubjzuiomh70-93-9945 13:00-0500Systolic blood mm[Hg]Sydnie Guerrero DO Work Phone: [facility] NetworkHxwlroijpv62-63-5994 13:10-0500Body awnepq976.3 cmRajni Cardozo DO Work Phone: [facility]11-11-2024 13:10-0500Body mass index (BMI) [Ratio]32.93 kg/m2Rajni Cardozo DO Work Phone: [facility]11-11-2024 13:10-0500Body cywndhokgfw60.4 [degF]Rajni Cardozo DO Work Phone: [facility]11-11-2024 13:10-0500Body mjaaar129.15 kgRajni Cardozo DO Work Phone: [facility] Mqyojm55-59-9585 13:10-0500Diastolic blood gkqjhmhe29 mm[Hg]Rajni Cardozo DO Work Phone: [facility] Laxxtu20-98-1027 13:10-0500Heart rate 87 /minRajni Cardozo DO Work Phone: [facility] Kgrxsu35-68-8535 13:10-5446MdM1% (BldA) [Mass fraction]93 %Rajni Cardozo DO Work Phone: [facility] Uwwibx16-75-8060 13:10-0500Systolic blood mm[Hg]Rajni Cardozo DO Work Phone: [facility] Zvszly39-65-0322 10:36-0400Body xedkds597.3 Aneta Giles MD Work Phone: [phone] [address] StreetData Driven Delivery System Dlxekx80-04-4347 10:36-0400Body mass index (BMI) [Ratio]33.7 kg/m0Iwfxeolashell Giles MD Work Phone: [phone] [place], [place] [address] Kpehzb81-64-9813 10:36-0400Body uosici999.51 kgThlashell Giles MD Work Phone: [phone] [address] StreetData Driven Delivery System Pdryfl36-81-3693 10:36-0400Diastolic blood ikfvsudn41 mm[Hg]Saqib Giles MD Work Phone: [phone] [place], [place] [address] Bdmexu29-88-5332 10:36-0400Heart rate 71 /minSaqib Giles MD Work Phone: [phone])226-The Bar MethodBrec[facility]ville [facility] HospitalData Driv[facility] Delivery System Gecnby57-07-4059 10:36-0576FrE2% (BldA) [Mass fraction]93 %Saqib Giles MD Work Phone: [phone])343-The Bar MethodBrec[facility]ville [facility] HospitalData [facility] Kwicqx51-51-8911 10:36-0400Systolic blood mm[Hg]Saqib Giles MD Work Phone: [phone] [address] StreetData Driven Delivery System Gttesm39-90-4265 13:02-0400Body zhmbet459.3 cmJoabby Cardozo DO Work Phone: [facility] Txxryy20-45-8853 13:02-0400Body mass index (BMI) [Ratio]33.4 kg/m2Joabby Cardozo DO Work Phone: [facility] Weluab97-22-9239 13:02-0400Body nkuhvkbczym71.01 [degF]Rajni Cardozo DO Work Phone: [facility]09-09-2024 13:02-0400Body oycvik242.6 kgJoabby Cardozo DO Work Phone: [facility]09-09-2024 13:02-0400Diastolic blood gxqubhao45 mm[Hg]Rajni Cardozo DO Work Phone: [facility]09-09-2024 13:02-0400Heart rate 90 /minJoabby Cardozo DO Work Phone: [facility]09-09-2024 13:02-5669GyJ5% (BldA) [Mass fraction]93 %Rajni Cardozo DO Work Phone: [facility] Lptxrc50-41-7016 13:02-0400Systolic blood ilppiyuv277 mm[Hg]Rajni Cardozo DO Work Phone: [facility]08-13-2024 19:58-0400Body yyyvfh411.[address]08-13-2024 19:58-0400Body mass index (BMI) [Ratio]35.15 kg/m2Pm[address]08-13-2024 19:58-0400Body smhvoz577.[address] [place], [place] 5066207-08-2024 15:46-0400Diastolic blood bozmbblj85 mm[Hg]Rajni Cardozo DO Work Phone: [facility]07-08-2024 15:46-0400Systolic blood yxwlorka256 mm[Hg]Rajni Cardozo DO Work Phone: [facility]07-08-2024 15:44-0400Body yfnkdn002.3 cmRajni Cardozo DO Work Phone: [facility] Aofcon08-71-9789 15:44-0400Body mass index (BMI) [Ratio]35.74 kg/m2Rajni Cardozo DO Work Phone: [facility] Yufyrd77-99-1195 15:44-0400Body wkhttindgtw87.9 [degF]aRjni Cardozo DO Work Phone: [facility] Twhvke95-21-8895 15:44-0400Body nnpexx015.77 kgRajni Cardozo DO Work Phone: [facility] Coofxa18-53-8070 15:44-0400Heart rate 83 /minJoabby Cardozo DO Work Phone: [facility] Owivyz76-66-9412 15:44-1346DtL2% (BldA) [Mass fraction]96 %Rajni Cardozo DO Work Phone: [facility] Evayzo47-95-4887 13:38-0400Body vbyzmy376.3 cmJoabby Cardozo DO Work Phone: [facility] Frysaq31-06-7878 13:38-0400Body mass index (BMI) [Ratio]35.99 kg/m2Rajni Cardozo DO Work Phone: [facility] Bblesy17-05-2248 13:38-0400Body zucyorodzsq94.8 [degF]Rajni Cardozo DO Work Phone: [facility] Zoanpz14-09-2691 13:38-0400Body ytosjl049.54 kgRajni Cardozo DO Work Phone: [facility] Egfpty23-00-0539 13:38-0400Diastolic blood tuexiqli82 mm[Hg]Rajni Cardozo DO Work Phone: [facility] Uxlcrn15-33-0924 13:38-0400Heart rate 82 /minRajni Cardozo DO Work Phone: [facility]06-05-2024 13:38-0400 Respiratory rate18 /minRajni Cardozo DO Work Phone: [facility]06-05-2024 13:38-3258IeL7% (BldA) [Mass fraction]93 %Rajni Cardozo DO Work Phone: [facility]06-05-2024 13:38-0400Systolic blood nxrkvovh886 mm[Hg]Rajni Cardozo DO Work Phone: [facility]05-30-2024 11:15-0400Diastolic blood okvbciex17 mm[Hg]Kacey Stephens APRN-ENERGY AUDITOR Work Phone: [facility]05-30-2024 11:15-7675LoA3% (BldA) [Mass fraction]91 %Kacey Stephens APRN-ENERGY AUDITOR Work Phone: [facility]05-30-2024 11:15-0400Systolic blood xzuuuola542 mm[Hg]Kacey Stephens APRN-ENERGY AUDITOR Work Phone: [facility]05-30-2024 11:11-0400Body .3 cmKacey Stephens OUTBOARD MOTOR TESTER-ENERGY AUDITOR Work Phone: [facility]05-30-2024 11:11-0400Body mass index (BMI) [Ratio]36.56 kg/m2Kacey Stephens OUTBOARD MOTOR TESTER-ENERGY AUDITOR Work Phone: [facility]05-30-2024 11:11-0400Body uzgeqmmfiqw29.7 [degF]Kacey Stephens APRN-ENERGY AUDITOR Work Phone: [facility]05-30-2024 11:11-0400Body ufhkzk669.31 kgKacey Stephens OUTBOARD MOTOR TESTER-ENERGY AUDITOR Work Phone: [facility]05-30-2024 11:11-0400Heart rate 70 /Mando Stephens OUTBOARD MOTOR TESTER-ENERGY AUDITOR Work Phone: [facility]05-30-2024 11:11-0400 Respiratory rate24 /Mando Stephens OUTBOARD MOTOR TESTER-ENERGY AUDITOR Work Phone: [facility]05-15-2024 13:36-0400Diastolic blood vwjurekz65 mm[Hg]Rajni Cardozo DO Work Phone: [facility]05-15-2024 13:36-0400Systolic blood dqhqkxac145 mm[Hg]Rajni Cardozo DO Work Phone: [facility]05-15-2024 13:04-0400Body dkacvp144.3 cmRajni Cardozo DO Work Phone: [facility]05-15-2024 13:04-0400Body mass index (BMI) [Ratio]37.07 kg/m2Rajni Cardozo DO Work Phone: [facility]05-15-2024 13:04-0400Body vcnydfdmxxn83.59 [degF]Rajni Cardozo DO Work Phone: [facility]05-15-2024 13:04-0400Body .85 kgRajni Cardozo DO Work Phone: [facility]05-15-2024 13:04-0400Heart rate 88 /minRajni Cardozo DO Work Phone: [facility]05-15-2024 13:04-2536SeE5% (BldA) [Mass fraction]93 %Rajni Cardozo DO Work Phone: [facility]04-16-2024 20:38-0400Body jvaiio701.[address]04-16-2024 20:38-0400Body mass index (BMI) [Ratio]38.1 kg/m[address]04-16-2024 20:38-0400Body gbnqyf267.[address] [place], [place] 50[address]204-15-2024 13:53-0400Diastolic blood cwhcxeuv40 mm[Hg]Rajni Cardozo DO Work Phone: [facility]04-15-2024 13:53-0400Systolic blood uwcmtigc079 mm[Hg]Rajni Cardozo DO Work Phone: [facility]04-15-2024 13:05-0400Body umbvhh864.3 cmJoabby Cardozo DO Work Phone: [facility]04-15-2024 13:05-0400Body mass index (BMI) [Ratio]38.03 kg/m2Joabby Cardozo DO Work Phone: [facility]04-15-2024 13:05-0400Body .6 [degF]Rajni Cardozo DO Work Phone: [facility]04-15-2024 13:05-0400Body buoxcg399.8 kgJoabby Cardozo DO Work Phone: [facility]04-15-2024 13:05-0400Heart rate 76 /minRajni Cardozo DO Work Phone: [facility]04-15-2024 13:05-0400 Respiratory rate18 /minRajni Cardozo DO Work Phone: [facility]04-15-2024 13:05-8560RqU5% (BldA) [Mass fraction]93 %Rajni Cardozo DO Work Phone: [facility]04-01-2024 11:00-0400Body zymujhvsmie97.01 [degF]Rajni Cardozo DO Work Phone: [facility]04-01-2024 11:00-0400Diastolic blood mm[Hg]Rajni Cardozo DO Work Phone: [facility]04-01-2024 11:00-0400Heart rate 85 /minRajni Cardozo DO Work Phone: [facility]04-01-2024 11:00-0400 Respiratory rate22 /minRajni Cardozo DO Work Phone: [facility] Hnjoup33-18-2921 11:00-8211BjF5% (BldA) [Mass fraction]93 %Rajni Cardozo DO Work Phone: [facility] HospitalHunan Meijing [employer]04-01-2024 11:00-0400Systolic blood aqnznofo251 mm[Hg]Rajni Cardozo DO Work Phone: [facility] Aupska12-91-5436 05:57-0400Body mass index (BMI) [Ratio]33.77 kg/m2Rajni Cardozo DO Work Phone: [facility] HospitalHunan Meijing [employer]04-01-2024 05:57-0400Body artsir737.74 kgJoabby Cardozo DO Work Phone: [facility] Tkdrjm34-11-7046 19:05-0400Body wuzvft121.3 cmRajni Cardozo DO Work Phone: [facility] [employer]03-30-2024 17:52-0400Body .6 [degF]Rajni Cardozo DO Work Phone: [facility] [employer]03-30-2024 17:52-1083DpC4% (BldA) [Mass fraction]95 %Rajni Cardozo DO Work Phone: [facility] [id number] 14:20-0500Body agdriy886.3 cmRajni Cardozo DO Work Phone: [facility] [employer]03-06-2024 14:20-0500Body mass index (BMI) [Ratio]38.42 kg/m2Rajni Cardozo DO Work Phone: [facility] [employer]03-06-2024 14:20-0500Body .1 [degF]Rajni Cardozo DO Work Phone: [facility] Survios Mhouas09-80-5059 14:20-0500Body umnheq009.03 kgRajni Cardozo DO Work Phone: [facility] Survios Ephzsy69-72-1620 14:20-0500Diastolic blood feavtclp85 mm[Hg]Rajni Cardozo DO Work Phone: [facility] Survios Klvtcm36-43-1958 14:20-0500Heart rate 70 /minRajni Cardozo DO Work Phone: [facility] Survios Bhrkyj78-35-6785 14:20-7911CgQ1% (BldA) [Mass fraction]96 %Rajni Cardozo DO Work Phone: [facility] Survios Nvjqtp88-21-7724 14:20-0500Systolic blood ziscszar998 mm[Hg]Rajni Cardozo DO Work Phone: [facility]02-29-2024 10:18-0500Body vwdgub595.3 cmSmaya Meadows DO Work Phone: [facility] Survios Dzgnfb85-39-2685 10:18-0500Body mass index (BMI) [Ratio]37.08 kg/o3KtlvyfGrace Meadows DO Work Phone: [facility] Survios Yngfba28-90-7558 10:18-0500Body gguoft200.9 kgGrace Meadows DO Work Phone: [facility] Survios Jnnglg39-51-4199 10:18-0500Diastolic blood oxzzxbgx55 mm[Hg]Grace Meadows DO Work Phone: [facility] Survios Mdwinu28-85-6716 10:18-0500Heart rate 75 /minSmaya Meadows DO Work Phone: [facility] Survios Fymznt81-17-3659 10:18-2602QzQ5% (BldA) [Mass fraction]96 %Grace Meadows DO Work Phone: [facility] Survios Mbeall12-89-9181 10:18-0500Systolic blood sdtdacmh181 mm[Hg]Grace Meadows DO Work Phone: [facility] Survios Tyhurq62-14-9849 13:59-0500Body wezhlt496.3 cmJoabby Cardozo DO Work Phone: [facility]02-05-2024 13:59-0500Body mass index (BMI) [Ratio]38.59 kg/m2Rajni Cardozo DO Work Phone: [facility] Survios Ngzfin74-03-9362 13:59-0500Body yyuzpraknns44.39 [degF]Rajni Cardozo DO Work Phone: [facility]02-05-2024 13:59-0500Body cccygm180.53 kgRajni Cardozo DO Work Phone: [facility]02-05-2024 13:59-0500Diastolic blood kzdoovrx86 mm[Hg]Rajni Cardozo DO Work Phone: [facility]02-05-2024 13:59-5718SvC5% (BldA) [Mass fraction]95 %Rajni Cardozo DO Work Phone: [facility]02-05-2024 13:59-0500Systolic blood nbumajpb654 mm[Hg]Rajni Cardozo DO Work Phone: [facility]12-28-2023 07:01-0677JfQ7% (BldA) [Mass fraction]95 %WILBERMiddletown HospitalComment on above: Performed By: #### ABG ####[facility] ([id number])[address] [place], [place] 7246437-93-1945 07:43-0395YuY3% (BldA) [Mass fraction]93 %[facility] HospitalComment on above:Performed By: #### ABG #### [facility] ([id number]) [address] [place], [place] [id number] 10:09-6818XaQ0% (BldA) [Mass fraction]93 %WILBER Cavazos [facility] HospitalComment on above:Performed By: #### XENIA, 67048-7, 22681-0, CBCA #### [facility] ([id number]) [address] [facility] [place], [place] 8208052-74-8535 07:52-1873IuI2% (BldA) [Mass fraction]93 %WILBER Cavazos [facility] HospitalComment on above:Performed By: #### XENIA, 20844-6, 34871-8, CBCA #### [facility] ([id number]) [address] [facility] [place], [place] 0429481-98-7085 06:48-8727WlY0% (BldA) [Mass fraction]94 %WILBER Cavazos [facility] HospitalComment on above:Performed By: #### XENIA, 62036-1, 50413-1, CBCA #### [facility] ([id number]) [address] [facility] [place], [place] 0380073-69-0024 07:26-7897JpG5% (BldA) [Mass fraction]95 %WILBER Cavazos [facility] center[facility] HospitalComment on above:Performed By: #### ABG #### [facility] ([id number]) [address] [facility] [place], [place] 9478187-29-9346 08:40-0400Body heightDahernan Carson Other [employer] Other Phone: [phone] 08:40-0400Body mass index (BMI) [Ratio] 38.83 kg/m2John Carson Other [employer] Other Phone: [phone] 08:40-0400Body chyyzi296.3 kgJohn Carson Other [employer] Other 08-17-2023 08:40-0400Diastolic blood yrdlatau47 mm[Hg] John Carson Other [employer] Other 08-17-2023 08:40-0400Systolic blood efvmxhwc530 mm[Hg] John Carson Other [facility] [employer] Other Encounters Encounter DateEncounter TypeCare ProviderFacilityStart: 23-80-8986szoqaockcpHIEB M [facility]: 02-13-2025 End: 85-20-5959wgcmnsorwaLkoeknq Vytautas Giedraitis MDFacility: Yoly Start: 02-09-2025 End: 88-42-7198Kvuysnifb department patient visitRAJNI Cardoso [facility]: 02-08-2025 End: 86-70-9887Fmtjjfjxm encounterSydnie Guerrero DO Work Phone: [facility] MedicineStart: 02-06-2025 End: 78-00-4969Tlszthyip encounterNicsally Reyes [facility] Physicians Internal Medicine [facility]: 02-06-2025 End: 49-60-4987mcnctsesmtSWUO [facility] Hospitaltart: 02-06-2025 End: 70-72-3155Ffgndm outpatient visit 25 minutesImapablo Summers MD Work Phone: [facility] - Heart Failure ClinicComment on above:Chronic diastolic heart failure (CMS-HCC) (Primary Dx); Pulmonary hypertension (CMS-HCC); Nonrheumatic tricuspid valve regurgitationStart: 02-03-2025 End: 81-88-3583Uixrjbsob encounterAntoinette Sanchez CNAProMedica Heart Failure ClinicStart: 01-25-2025 End: 56-45-7770Zdliwjqyr Shannan Guerrero DO Work Phone: [facility] MedicineStart: 01-04-2025 End: 30-13-8410Tpnpnrnmro and management of inpatientJOABBY Cardoso [facility] Hospitaltart: 01-03-2025 End: 66-19-9648cubunaptsrYnf Pat Phone Call Provider [address] [place] [address] AdmitStart: 01-03-2025 End: 50-91-0325Lawsfwpuj encounterLejim Guerrero DO Work Phone: [facility]: 01-03-2025 End: 56-87-4050dxjuhzgsdjCQUO Janae [facility] Hospitaltart: 12-28-2024 End: 10-39-0603PxomvgBenq L Yuhas DO Work Phone: [facility] Internal Medicine - Family MedicineComment on above: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Start: 11-79-1915fakksqckovMSSB L YUHAS [facility]tart: 12-21-2024 End: 36-22-1396yqnqtqffzhSCLPJQ A PRUIETTLancaster Municipal Hospitaltart: 12-19-2024 End: 34-10-4637bivmilgpmtIyi Pat Phone Call Provider [address] [place] [address] AdmitStart: 12-19-2024 End: 40-28-7466lseznsdufvGNKH Janae [facility] Hospitaltart: 12-19-2024 End: 80-05-6191luhlnszcyxOtmemsy Alexanderytheather Giedraitis MDFacility:PM Yoly Start: 12-15-2024 End: 21-87-5577Zqbyrv-up encounterRajni Cardozo DO Work Phone: [facility] Internal Medicine - Family MedicineComment on above:Basic Metabolic PanelStart: 12-15-2024 End: 09-40-0034Trtblitnsvio care manage srvc 14 day dischargeRajni Cardozo DO Work Phone: [facility] Internal Medicine - Family MedicineComment on above:Microcytic anemia (Primary Dx); Gastro-esophageal reflux disease without esophagitis; Stage 3a chronic kidney disease ([facility]-HCC); Spinal stenosis of lumbar region with neurogenic claudicationStart: 12-15-2024 End: 22-98-8129wqljnaknueJHLT L [facility] Ambulatory PPGStart: 36-11-0589ylvbdliipyBKTL L [facility] HospitalStart: 12-12-2024 End: 81-85-4402Oltsje-up encounterKacey Sims [facility] Heart Failure ClinicComment on above:Basic Metabolic PanelStart: 57-44-0132abpvmfalprUCCAJL A PRUIETTMercy Health [facility] HospitalStart: 12-08-2024 End: 22-18-2761Yemccpwse encounterLiz Norman [facility] [place][note 2] Physicians Internal Medicine - Family MedicineComment on above:Transition Of CareStart: 12-04-2024 End: 62-17-1312Iirynvnbmc and management of inpatientRAJNI Cardoso [facility] Hospitaltart: 12-03-2024 End: 61-07-7449Hadfsnkhnn and management of inpatientRAJNI Cardoso [facility] HospitalStart: 11-30-2024 End: 07-06-0926Ntlxdu-up encounterKacey Sims [facility] Heart [facility] ClinicComment on above:Basic Metabolic PanelStart: 11-29-2024 End: 69-22-5808Urjbpb-up encounterRajni Cardozo Work Phone: [facility] Physicians Internal Medicine - Family MedicineComment on above:X-ray knee right 3 viewsStart: 88-68-2601ckrtinhhkojean COOKMercy Health [facility]iance Hospital HospitalStart: 11-28-2024 End: 70-39-9503yvyruplnrdKPFO L [facility]tart: 11-28-2024 End: 75-50-0610Eavcks outpatient visit 25 minutesOdessa Cook OUTBOARD MOTOR TESTER-FUEL CELL DESIGNER Work Phone: [facility] Heart Failure ClinicComment on above:Chronic heart failure with preserved ejection fraction (CMS-HCC) (Primary Dx); Pulmonary hypertension (CMS-HCC); Nonrheumatic tricuspid valve regurgitation; Essential hypertension; 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; History of four vessel coronary artery bypass graft; NSTEMI (non-ST elevated myocardial infarction) ([facility])Start: 11-28-2024 End: 84-60-9917ypdxwauvteFRCHHV A PRUIETTLancaster Municipal Hospitaltart: 11-23-2024 End: 97-24-9519MtycytZrpl L Obdulia DO Work Phone: [facility] Physicians Internal Medicine - Family MedicineComment on above:Peripheral polyneuropathyStart: 11-14-2024 End: 77-30-9154zlkgjvsituMvhbwan Vytautas Giedjena MIJARESFacility:JACOB Frederick Start: 11-07-2024 End: 57-76-3264Cxkkxo outpatient visit 25 minutesRajni Cardoso Lukasshimas DO Work Phone: [facility] Physicians Internal Medicine - Family MedicineComment on above:Hiatal hernia with GERD (Primary Dx); Stage 3a chronic kidney disease ([facility]); Patellar tendinitis of right knee; Gastro-esophageal reflux disease without esophagitis; Venous insufficiency of both lower extremitiesStart: 11-07-2024 End: 28-02-0740hvavhameqdWYOIAscension [facility] Hospital PPGStart: 11-02-2024 End: 65-77-8050Fcqeco-up encounterFaithabby Cardoso Lukassunshine DO Work Phone: [facility] Physicians Internal Medicine - Family [facility] Medical CenterComment on above:Fluoroscopy upper GI with esophagusStart: 11-02-2024 End: 21-02-3575hiblgpxbhuWHBBSharp Coronado Hospitaltart: 10-27-2024 End: 84-16-4949Ifjson outpatient visit 25 minutesRajni Cardozo DO Work Phone: [facility] Physicians Internal Medicine - Family MedicineComment on above:Type 2 diabetes mellitus with stage 3a chronic kidney disease, without long-term current use of insulin ([facility]) (Primary Dx); Venous insufficiency of both lower extremities; Chronic heart failure with preserved ejection fraction ([facility]); Stage 3a chronic kidney disease ([facility]); Nausea and vomiting, unspecified vomiting type; Arthritis of left sacroiliac jointStart: 10-27-2024 End: 92-27-3846byyhysnvszXEPAWills Memorial Hospital Ambulatory PPGStart: 10-13-2024 End: 15-21-7307RjuvxaZntd L Yuhas DO Work Phone: [facility] Internal Medicine - [place] HospitalComment on above:Peripheral polyneuropathyStart: 75-93-1658bkolcovpzhSierra Vista Hospitaltart: 10-07-2024 End: 00-53-9679rcgrmaqictEBFFWills Memorial Hospital Ambulatory PPGStart: 10-07-2024 End: 12-85-1671Ubkdiq outpatient visit 25 minutesRajni Cardozo DO Work Phone: [facility] Internal Medicine - [facility] HospitalComment on above:Cervicogenic headache (Primary Dx); Orthostatic hypotension; Chronic heart failure with preserved ejection fraction ([facility]); Fibromyalgia syndromeStart: 09-21-2024 End: 16-21-3555Bxxfxj outpatient visit 15 minutesSydnie Guerrero DO Work Phone: noms FNR PULMComment on above:Chronic obstructive pulmonary disease, unspecified COPD type (CMS/HCC) (Primary Dx); Chronic respiratory failure with hypoxia and hypercapnia ([facility]); BONY (obstructive sleep apnea)Start: 09-21-2024 End: 24-53-3687kbktjmkpriXPAGVY K STRACKNot AvailableStart: 09-21-2024 End: 76-86-8778Hhelmn flowsElba Guerrero DO Work Phone: noms FNR PULMStart: 09-21-2024 End: 52-91-5550Dcitvv flowsElba Guerrero DO Work Phone: [facility] FNR PULMStart: 09-04-2024 End: 39-37-4911QhlwtbXrvl Janae Cardozo DO Work Phone: [facility] Internal Medicine - Family MedicineComment on above:Peripheral polyneuropathyStart: 09-01-2024 End: 38-12-3554Qkemhx outpatient visit 25 Jayson Peacock MD Work Phone: [facility] CardiologyComment on above: Chronic heart failure with preserved ejection fraction (CMS-HCC) (Primary Dx); 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; Hx of CABGStart: 09-01-2024 End: 69-94-2166shcalueosySKPDCFormerly [facility] HospitalStart: 07-15-2024 End: 38-88-2204SfrqmwTsrjSelect at [place] Physicians CardiologyComment on above:Med RefillStart: 07-15-2024 End: 23-32-6475NxgbmjYmbr L Yuhas DO Work Phone: [facility] Internal Medicine - Family MedicineComment on above:Gastro-esophageal reflux disease without esophagitis Start: 07-07-2024 End: 93-85-9755cpxrkqhdaaJSROSumma Health [facility] HospitalStart: 07-07-2024 End: 66-71-8473reglcnremsJHGQAscension All Saints Hospital PPGStart: 07-07-2024 End: 65-49-5428Aastaz outpatient visit 25 minutesRajni Cardozo DO Work Phone: [facility] Internal Medicine - Family MedicineComment on above:IFG (impaired fasting glucose) (Primary Dx); Chronic obstructive pulmonary disease, unspecified COPD type ([facility]-HCC); Stage 3a chronic kidney disease ([facility]-HCC); Chronic respiratory failure with hypoxia and hypercapnia (CMS-HCC); Chronic heart failure with preserved ejection fraction (CMS-HCC); Bipolar 2 disorder, major depressive episode (CMS-HCC); BMI 40.0-44.9, adult ([facility]-HCC); 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 (CMS-HCC); B12 deficiency; Peripheral polyneuropathy; Arthritis of left sacroiliac joint ([facility]-HCC)Start: 05-14-2024 End: 92-24-3165BkexfjYrha L Yuhas DO Work Phone: [facility] Physicians Internal Medicine - [place] HospitalComment on above:Peripheral polyneuropathyStart: 04-25-2024 End: 86-68-5285SbfixiDmgpju SarwatLakeview Regional Medical Center Physicians CardiologyComment on above:Med RefillStart: 04-07-2024 End: 60-33-5795YpqidpPycafasl Schlosser OUTBOARD MOTOR TESTER-FUEL CELL DESIGNER Work Phone: [facility] Physicians CardiologyComment on above:Med RefillStart: 03-29-2024 End: 08-33-2252mygmzbdnpzLXOQHarlem Valley State Hospital Ambulatory PPGStart: 03-29-2024 End: 35-83-6730Ytwmzr outpatient visit 25 minutesR[facility]view Regional [facility] DO Work Phone: [facility] Physicians Internal Medicine - [place] HospitalComment on above:Contusion of lower leg, unspecified laterality, initial encounter (Primary Dx)Start: 03-29-2024 End: 86-83-3833Ojmxnbrhn encounterMisty PrestonMacon General Hospital Physicians Internal Medicine - [facility] MedicineStart: 03-21-2024 End: 55-42-3842ntamnsbddqRtxxohk Vytautas Gieditis Facility:[facility] [place] Start: 03-17-2024 End: 41-44-0731Hjfiav Shawn Guerrero DO Work Phone: noms PULMStart: 03-17-2024 End: 14-09-2962Gtgalb Shawn Guerrero DO Work Phone: noMS PULMStart: 03-17-2024 End: 32-60-3479Acugxb outpatient new 45 minutesSydnie Guerrero DO Work Phone: n[facility] PULMComment on above:Chronic obstructive pulmonary disease, unspecified COPD type (CMS/HCC) (Primary Dx); Chronic respiratory failure with hypoxia and hypercapnia (CMS/HCC); Cigarette smokerStart: 03-17-2024 End: 44-17-5875dfoyesnvesVOEKBW K STRACKNot AvailableStart: 03-09-2024 End: 30-03-2451FnszlzJzfp L Yuhas DO Work Phone: [facility] Internal Medicine - Family MedicineComment on above:Gastro-esophageal reflux disease without esophagitis Start: 03-07-2024 End: 12-81-0127muaiisgucrEVMI [facility] Companytart: 03-07-2024 End: 79-13-0582Effxsp outpatient visit 25 minutesRajni Cardozo DO Work Phone: [facility] Internal Medicine - Family [facility] Va Medical CenterComment on above:IFG (impaired fasting glucose) (Primary Dx); Peripheral polyneuropathy; Stage 3a chronic kidney disease (CMS-HCC); Chronic heart failure with preserved ejection fraction (CMS-HCC); 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 (CMS-HCC)Start: 03-07-2024 End: 70-22-5078otqkprrkcjQTVLAscension All Saints Hospital PPGStart: 02-29-2024 End: 63-94-4320ivsdnyvsooKfwkucy Vytautas Giedraitis MDFacility:PM [facility] Start: 02-22-2024 End: 20-62-1426Ucpwxpmqf encounterMistlivia Preston [facility] Physicians Internal Medicine - [facility] Duluthtart: 02-22-2024 End: 95-19-6047zhrgragdefJusyvqc Vytautas Giedraitis MDFacility:[facility] [place] Start: 02-19-2024 End: 36-37-3948Zavyoq outpatient visit 15 minutesAlex Amos MD Work Phone: [facility] CardiologyComment on above: 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 ([facility]-HCC) (Primary Dx)Start: 02-18-2024 End: 18-68-3188Stmjrnvtq encounterVicki Bailey [facility] HospitalMed[facility] Physicians CardiologyStart: 02-09-2024 End: 66-53-7787Mzhksz Yelena Huertas DO Work Phone: [facility] ORTHOPAEDICSStart: 02-09-2024 End: 39-70-5482Gnypbg flowsheetEusebia Huertas DO Work Phone: noms CI ORTHOPAEDICSStart: 02-09-2024 End: 17-28-2397sesvcjbqqmHMBVPEdith HUERTASNot AvailableStart: 02-09-2024 End: 12-02-5316Ecywnr outpatient visit 10 minutesEusebia Huertas DO Work Phone: n[facility] CI ORTHOPAEDICSComment on above:Trigger point of left side of body (Primary Dx); Arthritis of left sacroiliac joint (CMS/HCC); Lumbosacral pain; Pain of left sacroiliac jointStart: 02-03-2024 End: 52-15-8386Gkelgjwai encounterFior Scott CMAProMedica Physicians Internal Medicine - Family MedicineStart: 02-01-2024 End: 75-35-5985Ziankulfj encounterSmaya Meadows DO Work Phone: [facility] Pulmonary/Sleep MedicineStart: 01-26-2024 End: 81-95-1870Hpuhzt outpatient visit 15 minutesEusebia Huertas DO Work Phone: n[facility] CI ORTHOPAEDICSComment on above:Left shoulder pain, unspecified chronicity (Primary Dx); Arthritis of left shoulder regionStart: 01-26-2024 End: 04-84-5997xkpkgaongmLSWCHEdith HUERTASNot AvailableStart: 01-21-2024 End: 08-60-1574Dadyxi Rajinder Buchanan OUTBOARD MOTOR TESTER-FUEL CELL DESIGNER Work Phone: [facility] Heart Failure ClinicComment on above:Chronic heart failure with preserved ejection fraction (CMS-HCC)Start: 01-20-2024 End: 58-54-0990DitlzqVrbroYadira Howe Physicians CardiologyComment on above:Med RefillStart: 01-20-2024 End: 55-60-6125HecwtkVoph L Yuhas DO Work Phone: [facility] Internal Medicine - Family MedicineComment on above:Spinal stenosis of lumbar region with neurogenic claudicationMed Change RequestStart: 01-19-2024 End: 16-28-0507Claurhicv encounterLisa Hammad [facility] Physicians Cardiology Start: 01-18-2024 End: 10-19-4728YfwcazPycbzr Liedberg [facility] [place][note 2] Physicians CardiologyComment on above:Med RefillStart: 29-99-9142pfiqmmqgmyIEEMAJ M [facility] Ambulatory PPGStart: 01-12-2024 End: 70-47-6367Gooafu flowsheetEusebia Huertas DO Work Phone: noms CI ORTHOPAEDICSStart: 01-12-2024 End: 00-74-2711Aqswdf flowsheetEusebia Huertas DO Work Phone: [facility] CI ORTHOPAEDICSStart: 01-12-2024 End: 41-15-4517oazlsijuljBNKCC A HUDDLESTONNot AvailableStart: 01-12-2024 End: 77-81-8237Vqqwpb outpatient visit 10 minutesEusebia Huertas DO Work Phone: n[facility] CI ORTHOPAEDICSComment on above:Trigger point of left side of body (Primary Dx)Start: 01-07-2024 End: 64-20-4958Flwcagypa encounterSofya Coe [facility] Physicians Internal Medicine - Family MedicineStart: 01-04-2024 End: 06-16-4777lvnohadhbtLPLM [facility] HospitalStart: 01-04-2024 End: 24-26-5926Sehzdp outpatient visit 25 minutesRajni Cardozo DO Work Phone: [facility] Physicians Internal Medicine - Family MedicineComment on above:Chronic respiratory failure with hypoxia and hypercapnia (CMS-HCC) (Primary Dx); BONY treated with BiPAP; Spinal stenosis of lumbar region with neurogenic claudication; Chronic heart failure with preserved ejection fraction (CMS-HCC)Start: 01-04-2024 End: 67-95-7958ipszblyfgzTXOP [facility] Ambulatory PPGStart: 01-01-2024 End: 70-12-5444CmlxosDxyq L Yuhas DO Work Phone: [facility] Physicians Internal Medicine - Family MedicineComment on above:Spinal stenosis of lumbar region with neurogenic claudicationStart: 12-30-2023 End: 95-16-7767Qbuiowfbk encounterMisty Preston [facility] Physicians Internal Medicine - [facility] MedicineStart: 12-29-2023 End: 73-12-9232Jlbkgs Yelena Huertas DO Work Phone: [facility] CI ORTHOPAEDICSStart: 12-29-2023 End: 01-95-7695Dadljq Yelena Huertas DO Work Phone: [facility] CI ORTHOPAEDICSStart: 12-29-2023 End: 73-94-3533Ufvtff outpatient visit 25 minutesEusebia Huertas DO Work Phone: [facility] CI ORTHOPAEDICSComment on above:Trigger point of left side of body (Primary Dx); Compression fracture of T6 vertebra with routine healing, subsequent encounter; Compression fracture of T8 vertebra with routine healing, subsequent encounter; Osteoporotic compression fracture of vertebra with routine healing, subsequent encounterStart: 12-29-2023 End: 64-26-2440nzxopprkslMCWQU Mindi ANTONYPEDRONot AvailableStart: 12-24-2023 End: 20-01-4582Fcidecrxj encounterMisty Preston [facility] Physicians Internal Medicine - [facility] MedicineStart: 12-17-2023 End: 62-20-4481Ndwufmxhe encounterRoxanne E LafountainProMedica Physicians Pulmonary/Sleep MedicineStart: 12-15-2023 End: 32-88-3929Fadgeeuhm encounterRoxanne E LafountainProMedica Physicians Pulmonary/Sleep MedicineStart: 12-10-2023 End: 37-45-8815Fdmpqygig encounterKaia Jovel MD Work Phone: [facility] PHYSICIANS PULMONARY & SLEEPStart: 12-08-2023 End: 52-15-0733Mdxpevxu Gianna Meadows DO Work Phone: [facility] - Sleep Disorders Comment on above:ArrivedStart: 11-19-2023 End: 07-98-0827Saffizfay encounterTosin Reyes CMAProMedica Physicians Internal Medicine - Family MedicineStart: 11-03-2023 End: 66-42-6655LiovteAyws L Yuhas DO Work Phone: [facility] Physicians Internal Medicine - Family MedicineComment on above:Fibromyalgia syndromeStart: 11-02-2023 End: 58-29-6838jzkyynonytSADT Janae PERRYLakeHealth TriPoint Medical Centertart: 11-02-2023 End: 49-99-4701Owbqme outpatient visit 25 minutesJoabby Perrys DO Work Phone: [facility] Physicians Internal Medicine - Family MedicineComment on above:Venous insufficiency of both lower extremities (Primary Dx); Chronic heart failure with preserved ejection fraction (CMS-HCC); Acute pulmonary embolism without acute cor pulmonale, unspecified pulmonary embolism type (CMS-HCC); B12 deficiencyStart: 10-30-2023 End: 44-99-4522GjheqcXbtxao R Rettig OUTBOARD MOTOR TESTER-i-drive Work Phone: [facility] - Heart Failure ClinicComment on above:Shortness of breath; Chronic heart failure with preserved ejection fraction (CMS-HCC)Start: 10-27-2023 End: 83-21-0878ahyxjowkgwCZSCLEdith Ortiz AvailableStart: 10-21-2023 End: 47-06-9157UgjlqdUzhk L Yuhas DO Work Phone: [facility] Phys[facility] Internal Medicine - Family MedicineStart: 10-07-2023 End: 98-26-5467Rfysvyeat encounterDaisha Marquez [facility]Med[facility] Physicians General SurgeryStart: 10-06-2023 End: 13-35-3192ErkuwdKnzr L Yuhas DO Work Phone: [facility] Physicians Internal Medicine - Family MedicineComment on above:Spinal stenosis of lumbar region with neurogenic claudication (Primary Dx)Start: 10-02-2023 End: 60-27-1211ZvirnvHoglga R Rettig OUTBOARD MOTOR TESTER-i-drive Work Phone: [facility] - Heart Failure ClinicComment on above:Chronic heart failure with preserved ejection fraction (CMS-HCC); 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Start: 10-01-2023 End: 62-59-3944JxlfnxXilir [facility] Medicine - Family MedicineComment on above:Closed wedge compression fracture of T6 vertebra with routine healingStart: 09-30-2023 End: 69-02-8741knkwzyygxyIZMW L YUFisher-Titus Medical Centertart: 09-30-2023 End: 91-22-9963Blqjuk outpatient visit 25 minutesJoabby Cardozo DO Work Phone: [facility] Internal Medicine - Family MedicineComment on above:Closed wedge compression fracture of T6 vertebra with routine healing (Primary Dx); Acute pulmonary embolism without acute cor pulmonale, unspecified pulmonary embolism type (CMS-HCC); Venous insufficiency of both lower extremities; Chronic respiratory failure with hypoxia and hypercapnia (CMS-HCC); Chronic heart failure with preserved ejection fraction (CMS-HCC); Spinal stenosis of lumbar region with neurogenic claudication; Peripheral polyneuropathy; B12 deficiencyStart: 09-24-2023 End: 34-14-6642Lfdnyy outpatient visit 25 minutesKacey BHAKTA Work Phone: [facility] Physicians Internal Medicine - Family MedicineComment on above:Flu-like symptoms (Primary Dx); Community acquired pneumonia, unspecified laterality; Chronic heart failure with preserved ejection fraction (CMS-HCC)Start: 09-22-2023 End: 28-53-2943OdtrseKgjba [facility] Medicine - Family MedicineComment on above:Closed wedge compression fracture of T6 vertebra with routine healingStart: 09-10-2023 End: 52-72-1196TlsrepKbom L Obdulia DO Work Phone: [facility] Internal Medicine - Family MedicineComment on above:Gastro-esophageal reflux disease without esophagitis Start: 09-09-2023 End: 85-89-8131Qnyevfczhmte care manage srvc 14 day dischargeRajni Cardoso Vickyumair DO Work Phone: [facility] Physicians Internal Medicine - Family MedicineComment on above:Closed wedge compression fracture of T6 vertebra with routine healing (Primary Dx); Acute pulmonary embolism without acute cor pulmonale, unspecified pulmonary embolism type (CMS-HCC); Spinal stenosis of lumbar region with neurogenic claudicationStart: 08-17-2023 End: 86-64-9263Mblmpwzgr encounterOrders Support User [facility] - Sleep DisordersComment on above: Sleep Lab (Pap Order)Start: 08-14-2023 End: 25-44-5944AhfihwLsmb McVayProNorthport Medical Center Physicians Pulmonary/Sleep Medicine Comment on above:BONY (obstructive sleep apnea) (Primary Dx); Hypoxemia associated with sleepStart: 08-13-2023 End: 60-41-7125Nqijqixso encounterAbdenton Jovel MD Work Phone: [facility] Physicians Pulmonary/Sleep MedicineStart: 08-11-2023 End: 87-91-7521Katlrpso SupportSmaya Meadows DO Work Phone: [facility] - Sleep Disorders Comment on above:BONY treated with BiPAPStart: 08-10-2023 End: 18-21-2471Ckdifmjlkykt care manage srvc 14 day dischargeRajni Cardozo DO Work Phone: [facility] Physicians Internal Medicine - Family MedicineComment on above:Unilateral groin pain, right (Primary Dx); Spinal stenosis of lumbar region with neurogenic claudication; Chronic respiratory failure with hypoxia and hypercapnia (CMS-HCC); Chronic heart failure with preserved ejection fraction (CMS-HCC); BONY treated with BiPAP; Bipolar disorder in partial remission, most recent episode unspecified type (CMS-HCC)Start: 08-06-2023 End: 75-35-6458Wxfpyqjcj encounterSnereyda Riggins Pulmonary/Sleep MedicineStart: 25-34-5275Zeivmfonn Hay Meadows DO Work Phone: [facility] Physicians Pulmonary/Sleep MedicineStart: 07-25-2023 End: 22-79-2650Ylbzmpoclv and management of inpatientAshimicaela Lock MD Work Phone: [facility] - Acute Care Comment on above:Chronic respiratory failure with hypoxia and hypercapnia (CMS- HCC) (Primary Dx); COPD exacerbation (CMS-HCC); Acute respiratory failure with hypoxia and hypercapnia (CMS-HCC); HypoxiaStart: 07-01-2023 End: 91-28-4333Eralhz outpatient visit 25 minutesJoabby Janae Perryumair DO Work Phone: [facility] Physicians Internal Medicine - Family MedicineComment on above:Fibromyalgia syndrome (Primary Dx); Stage 3a chronic kidney disease (CMS-HCC); BONY treated with BiPAP; Chronic heart failure with preserved ejection fraction (CMS-HCC); Obesity (BMI 30-39.9)Start: 23-81-9572Ufextsuyp Hay Meadows DO Work Phone: [facility] - Sleep Disorders Comment on above:Sleep Lab (Split Night)Start: 06-25-2023 End: 83-81-8228Epvuqm outpatient visit 25 Deacon Meadows DO Work Phone: [facility] Physicians Pulmonary/Sleep MedicineComment on above:BONY treated with BiPAP (Primary Dx); Chronic obstructive pulmonary disease, unspecified COPD type (CMS-HCC); Shortness of breath; Cigarette nicotine dependence in remissionStart: 06-01-2023 End: 02-23-1648Egmfkuqitpgj care manage srvc 7 day dischargeJoabby Janae Obdulia DO Work Phone: [facility] Physicians Internal Medicine - Family MedicineComment on above:Chronic heart failure with preserved ejection fraction (CMS-HCC) (Primary Dx); Bipolar disorder in partial remission, most recent episode unspecified type (CMS-HCC); 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 (CMS-HCC); BMI 40.0-44.9, adult (CMS-HCC); BONY treated with BiPAPStart: 54-45-0753Uoikov Katelyn Meadows DO Work Phone: [facility] Physicians Pulmonary/Sleep MedicineStart: 04-28-2023 End: 26-23-4050Mkhjslbuvj and management of inpatientLAURA [facility] Hospitaltart: 04-28-2023 End: 46-80-3959Iwktpzwnyi and management of inpatientLAURA ROGERPro[address] Hospitalca [facility] HospitalStart: 04-23-2023 End: 30-77-9112Ldxadovuyf and management of inpatientKARL S HAYESroMedica [facility] HospitalStart: 04-22-2023 End: 72-08-3108Elkqpmevif and management of inpatientDEAN Jose AGUEROLouis [facility] HospitalStart: 04-21-2023 End: 63-09-9301Pckapofivq and management of inpatientDEAN Jose AGUEROLouis [facility] HospitalStart: 04-20-2023 End: 88-64-5445Digsbbkdlq and management of inpatientDEAN Jose AGUEROLouis [facility] HospitalStart: 04-19-2023 End: 18-87-7924Dfyqvsudly and management of inpatientCHERYL Janae DOMÍNGUEZLutheran Hospital HospitalStart: 04-18-2023 End: 59-62-8852Mtvumutihn and management of inpatientDEAN Jose AGUEROLouis [facility] HospitalStart: 04-17-2023 End: 27-60-8131Hzrdwwsbqb and management of inpatientDEAN Jose AGUEROLouis [facility] HospitalStart: 04-16-2023 End: 68-81-9381Npoesdhazd and management of inpatientDEAN Jose AGUEROLouis [facility] HospitalStart: 04-15-2023 End: 11-33-5362Zwmdabhyyx and management of inpatientDEAN Jose AGUEROLouis [facility] HospitalStart: 04-15-2023 End: 66-57-4550Toraefxvce and management of inpatientJAMEY BRIALutheran Hospital HospitalStart: 04-15-2023 End: 37-59-1869Xkxkmczxgy and management of inpatientVENU MARLENAA Hazel LEÓN [facility] HospitalStart: 33-40-4949Hmxtmo outpatient new 30 minutesD[facility] NeurosurgeryStart: 12-11-2022 End: 87-27-4114mrgkfnmrobVskzym Andrew Steincility:[facility] Hospitaltart: 12-11-2022 End: 31-06-2534hwplqlzoorLI-C Thomas Ciprianoadelita Fowler Work Phone: [facility] Work Phone: Start: 12-11-2022 End: 62-85-1214Xisicof encounter procedureJEFFERSON Fowler Work Phone: [facility]-X[facility] [place] Work Phone: Start: 01-24-2022 End: 91-75-3160kognsztcodCgamdyyuwmq M HassettFacility:[facility] Hospitaltart: 01-07-2018 End: 87-51-2052Bmuwwpkfi department patient visitRhabdulaziz Janae Herron Facility:[facility] Procedures DateProcedureProcedure DetailPerforming ClinicianStart: 09-89-0665Ekkqp metabolic panel calcium totalJohn Janae Yuhas DO Work Phone: Start: 19-19-3295Ohzpz depression screening assessment Liz Ester RNStart: 98-13-5365Bgafuzu of coronary artery bypass grafting History of four vessel coronary artery bypass graftOdessa Cook OUTBOARD MOTOR TESTER-FUEL CELL DESIGNER Work Phone: Start: 41-46-5884Tbxfy depression screening assessment Rajni Perrys DO Work Phone: Start: 39-50-1852Joinfaiuiyzkd metabolic panelJohn Janae Perrys DO Work Phone: Start: 36-18-9459Vtwdz depression screening assessment Rajni Gaytanhas DO Work Phone: Start: 25-96-8348Gkmqa depression screening assessment Rajni Perrys DO Work Phone: Start: 26-53-2734Fswtkt-up visitFollow-upMANEL BOUMEGOUASStart: 90-35-2282Fhqyu depression screening assessmentRajni Perrys DO Work Phone: Start: 62-29-1609Wnqonoblcnhmxe aspir&/inj major jt/bursa w/o usEusebia Huertas DO Work Phone: Start: 17-37-3509Qqhvk shoulder complete minimum 2 Lisbet Huertas DO Work Phone: Start: 56-95-0651Twffhl-up visitFollow-upSMAYA MEADOWSStart: 56-88-6007Hvpdb depression screening assessmentRajni Cardozo DO Work Phone: Start: 84-90-9563Hevpdcbnl single/wellness program manager trigger point 1/2 musclesAmy Deel ARRT Work Phone: Start: 02-76-3555Xgwyu spine 1 view petros Huertas DO Work Phone: Start: 59-39-3156Avwug depression screening assessment Rajni Cardozo DO Work Phone: Start: 34-68-9618Zxhhf depression screening assessment Rajni Cardozo DO Work Phone: Start: 94-68-1089QDVT INFLUENZA A/INFLUENZA B/SARS-COV-2 VERITORKacey Stephens OUTBOARD MOTOR TESTER-ENERGY AUDITOR Work Phone: Start: 55-79-9396Wxzbm depression screening assessment Kacey Stephens OUTBOARD MOTOR TESTER-ENERGY AUDITOR Work Phone: Start: 95-44-4034Kfucv depression screening assessment Rajni Cardozo DO Work Phone: Start: 69-54-2036Eiafr depression screening assessment Rajni Cardozo DO Work Phone: Start: 31-73-1934Qhxeo metabolic panel calcium total Rajni Gimenez MD Work Phone: start: 24-01-6538SCMJQ OXIMETRY, SPOTRajni Gimenez MD Work Phone: start: 26-95-1360Wdiih metabolic panel calcium total Rajni Gimenez MD Work Phone: start: 65-99-3887Kblrd of lactateMary Lock MD Work Phone: Start: 07-25-2023 End: 70-01-2178Tcteydg bacterial blood aerobic w/id isolatesMary Lock MD Work Phone: Start: 27-93-3431PLFU/FLU A+B/RSV BY NAAT/MOLECULAR (M4RT COLLECTION TUBE)Mary Lock MD Work Phone: Start: 28-15-5127Ayosn gases any combination ph pco2 po2 co2 mzo1JtjnuwMary Lock MD Work Phone: Start: 07-25-2023 End: 71-90-2419ZIWKWGMPICTYzuwvc Vohra MD Work Phone: Start: 07-61-3472Vfzduojfhh exam chest 2 viewsMary Lock MD Work Phone: Start: 59-29-9902MW ED CRITICAL CAREMary Lock MD Work Phone: Start: 00-04-6052Fangu metabolic panel calcium total Mary Lock MD Work Phone: Start: 77-24-8151Mtr routine ecg w/least 12 lds trcg only w/o i&rAshalva Lock MD Work Phone: Start: 62-40-1328Zlesf depression screening assessment Rajni Cardozo DO Work Phone: Start: 91-50-8001Oprfr depression screening assessment Rajni Cardozo DO Work Phone: Start: 59-79-8176J-ray of lumbar spine, six views including bending viewsPACarolinaC Saqib Fowler Work Phone: Start: 43-35-1613Ryrhpol of coronary artery bypass graftingHx of CABGGrace Meadows DO Work Phone: Start: 22-16-3041Fantsmzzlht observation [Identifier] in Cervix by Cyto stainSmaya Meadows DO Work Phone: Start: 76-85-5657Xxozg depression screening assessment Grace Meadows DO Work Phone: History of coronary artery bypass graftingHx of CABG Myriam Peacock MD Work Phone: History of coronary artery bypass graftingHistory of four vessel coronary artery bypass graftKacey Sims RN Plan of Treatment DateCare ActivityDetailAuthorStart: 03-08-4707Duqjd BMI ScreeningAdult BMI ScreeningProMedica Health SystemStart: 53-06-2234Aytzzyu ScreeningTobacco ScreeningProMedica Health SystemStart: 81-18-0001Wlfpv BMI ScreeningAdult BMI ScreeningProMedica Health SystemStart: 36-12-7291Wtqlkyb ScreeningTobacco ScreeningProMedica Health SystemStart: 22-63-0515Usqdg BMI ScreeningAdult BMI ScreeningProMedica Health SystemStart: 98-02-3064Tmcnlwp ScreeningTobacco ScreeningProMedica Health SystemStart: 36-35-4720Iiylo BMI ScreeningAdult BMI ScreeningProMedica Health SystemStart: 83-90-9420Pbmgfvz ScreeningTobacco ScreeningProMedica Health SystemStart: 20-59-3846Mcddn BMI ScreeningAdult BMI ScreeningProMedica Health SystemStart: 48-34-9574Meykdttzpm ScreeningDepression ScreeningProMedica Health SystemStart: 76-03-9132Josgzpp ScreeningTobacco ScreeningProMedica Health SystemStart: 52-98-2612Kguyk BMI ScreeningAdult BMI ScreeningProMedica Health SystemStart: 58-70-6881Jbzuurl ScreeningTobacco ScreeningProMedica Health SystemStart: 31-28-3083Euueu BMI ScreeningAdult BMI ScreeningProMedica Health SystemStart: 44-03-4228Pwnijrdwgm ScreeningDepression ScreeningProMedica Health SystemStart: 66-45-3316Netfxzp ScreeningTobacco ScreeningProMedica Health SystemStart: 47-65-4130Ysvaq BMI ScreeningAdult BMI ScreeningProMedica Health SystemStart: 53-44-9588Omrvqfynpw ScreeningDepression ScreeningProMedica Health SystemStart: 17-48-4913Sdtxibo ScreeningTobacco ScreeningProMedica Health SystemStart: 73-11-4681Myszs BMI ScreeningAdult BMI ScreeningAkron Children's Hospital SystemStart: 31-79-7967Zaeezqmvbi ScreeningDepression ScreeningAkron Children's Hospital SystemStart: 16-17-7180Gsrjn BMI ScreeningAdult BMI ScreeningAkron Children's Hospital SystemStart: 93-28-8947Edvcjva ScreeningTobacco ScreeningAkron Children's Hospital SystemStart: 49-39-0211Xblta BMI ScreeningAdult BMI ScreeningAkron Children's Hospital SystemStart: 99-43-7620Dhnlbrtick ScreeningDepression ScreeningAkron Children's Hospital SystemStart: 39-34-1774Quuadxe ScreeningTobacco ScreeningAkron Children's Hospital SystemStart: 54-79-6550Plaxuj Use: Cardiovascular Statin Use: CardiovascularCritical access hospitaltart: 18-71-2651Pmwrop Use: DiabeticStatin Use: DiabeticCritical access hospitaltart: 03-15-2025 End: 13-31-4855Iivboyc encounter bzapygwpb74/19/2025 1:30 PM EST Office Visit [facility] [address] [place] [address] Rajni gonsalez, [address] [place], [place] [facility] - Family MedicineStart: 03-08-2025 End: 70-24-8499Nhquqsn encounter fdlyozkdh20/12/2025 3:15 PM EST Office Visit [facility] [address] [place] [phone] Sydnie Guerrero, [address] [place] [place] [address] [facility] PULMStart: 75-37-3104Iimcnmwswhnqgz of varicella zoster vaccineZoster (Shingles) Vaccine (1 of 2)[facility] SystemComment on above:Postponed from 2012 (Patient Refused)Start: 12-38-2596Igzeg BMI ScreeningAdult BMI ScreeningProMedica Health SystemStart: 37-30-1635Lioduck ScreeningTobacco ScreeningProWilson Street Hospitalca Health SystemStart: 32-94-5379Sytcu BMI ScreeningAdult BMI ScreeningProWilson [address] Hospitalca Health SystemStart: 27-99-3990Rjyulldih for malignant neoplasm of cervixPap SmearProWilson Street Hospitalca Health SystemStart: 84-94-7707Dpfrvgp ScreeningTobacco ScreeningProWilson Street Hospitalca [facility] SystemStart: 02-08-2025 End: 37-10-1057Kduismd encounter tctzwiyqj85/15/2025 1:30 PM EDT Office Visit [facility] Phys[facility] Internal Medicine - Family Medicine [address] [place] [address] Rajni Cardozo, [address] [place], [place] [facility] Internal Medicine - [facility] Duluthtart: 02-06-2025 End: 44-47-1900Uqrgttn encounter /13/2025 3:30 PM EDT Office Visit [facility] - Heart Failure Clinic [address] [place] [address] Risa Summers MD [address] [place] [address] [facility] Heart Failure ClinicStart: 19-41-0703Dwdaf BMI ScreeningAdult BMI ScreeningProWilson Street Hospitalca [facility] SystemStart: 07-17-6638Gclmhdb ScreeningTobacco ScreeningBrecksville VA / Crille Hospitalca [facility] SystemStart: 01-04-2025 End: 80-08-0989Erlzfmzvi to same day surgery hkrczn7901/04/2025 10:00 AM EDT - 01/04/2025 11:00 AM EDT Surgery [facility] - Endoscopy [address] [place] [address] Rajni Cardozo, DO [address] [place] [address] ESOPHAGOGASTRODUODENOSCOPY DIAGNOSTIC [10734(CPT )][facility] - EndoscopyComment on above:ESOPHAGOGASTRODUODENOSCOPY DIAGNOSTIC [13639 (CPT )]Start: 32-94-7791Qqcjoutpfi hospital visit by /10/2025 10:00 AM EDT Hospital Encounter [facility] - Endoscopy [address] [place] [phone] Rajni Cardozo, DO [address] [place] [address] [facility] EndoscopyStart: 01-04-2025 End: 88-79-8546Mhjmopqhogrhlloipavwvxprqn transoral diagnosticFREMONT END[facility] Start: 01-03-2025 End: 12-56-2726hdctprbgxf76/09/2025 3:50 PM EDT Support Visit [facility] - Pre Admit [address] [place] [phone] [facility] - [facility] AdmitStart: 90-85-9681Acmyi BMI ScreeningAdult BMI ScreeningProSalem City Hospital SystemStart: 65-99-5500Hpyumilwix ScreeningDepression ScreeningProWilson Street Hospitalca Health SystemStart: 85-07-3988Svfzxza ScreeningTobacco ScreeningProSalem City Hospital SystemStart: 12-21-2024 End: 74-30-5172Ezhfsot encounter lisvahwta03/27/2025 7:30 AM EDT Appointment [facility] Cardiovascular [address] [facility] [place] [address] Odessa Cook A, OUTBOARD MOTOR TESTER-FUEL CELL DESIGNER [address] [place] [address] [facility] CardiovascularStart: 12-20-2024 End: 70-21-7405Cygwgxwsj to same day surgery lctkez5712/20/2024 10:00 AM EDT - 12/20/2024 11:00 AM EDT Surgery [facility] - Endoscopy [address] [place] [address] Rajni Cardozo, DO [address] [place] [address] ESOPHAGOGASTRODUODENOSCOPY DIAGNOSTIC [36179(CPT )][facility] - EndoscopyComment on above:ESOPHAGOGASTRODUODENOSCOPY DIAGNOSTIC [21822 (CPT )]Start: 12-20-2024 End: 02-69-1802Vdqfujyoqxorgirbvpaehmoigl transoral diagnostic ESOPHAGOGASTRODUODENOSCOPY DIAGNOSTIC microcytic anemia 12/20/2024 10:00 AM EDT [facility]Start: 42-70-9951Dpqlrzpopd hospital visit by physician 12/20/2024 10:00 AM EDT Hospital Encounter [facility] - Endoscopy [address] [facility] [place] [address] Rajni Cardozo, DO [address] [place] [address] [facility] - EndoscopyStart: 12-19-2024 End: 64-85-2461txpaenkucf68/25/2025 2:40 PM EDT Support Visit [facility] - Pre Admit [address] [place] [address] [facility] - Pre AdmitStart: 38-30-2896Hzbzv BMI ScreeningAdult BMI ScreeningProWilson Street Hospitalca Health SystemStart: 20-21-5866Djwrboo ScreeningTobacco ScreeningProWilson Street Hospitalca [facility] SystemStart: 12-08-2024 End: 07-86-9541vaikurbzfz14/14/2025 9:00 AM EDT Lab [facility] - Lab [address] [facility]ANMETROP[address] [facility] [place] [address] [phone] Children's Hospital [facility] - LabStart: 31-42-5488Hhnoi BMI ScreeningAdult BMI ScreeningAkron Children's Hospital SystemStart: 12-07-2024 End: 58-68-4445Rrzdjiy encounter iftchqylw35/13/2025 2:00 PM EDT Office Visit [facility] [address] [place] [address] Rajni Cardozo DO [address] [id number] [facility] - Family MedicineStart: 82-67-2120Dqfkxdi ScreeningTobacco ScreeningProSalem City Hospital SystemStart: 96-04-6510Sskmf BMI ScreeningAdult BMI ScreeningProCincinnati Shriners Hospitaltart: 12-06-2024 End: 25-03-4315Ozntyky encounter tbvsvbhto83/12/2025 10:30 AM EDT Appointment [facility] - Total Rehab [address] [place] [id number] [phone] Memorial Hospital - Total RehabStart: 11-28-2024 End: 95-94-1668Rlsv complete W/O contrastEcho complete W/O contrast Echocardiography Routine Chronic heart failure with preserved ejection fraction ([facility]) Pulmonary hypertension ([facility]) Nonrheumatic tricuspid valve regurgitation Essential hypertension 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 History of four vessel coronary artery bypass graft NSTEMI (non-ST elevated myocardial infarction) ([facility]-H[facility]) Expected: 11/28/2024, Expires: 11/28/2025[facility]Comment on above:Expected: 11/28/2024, Expires: 11/28/2025Start: 11-28-2024 End: 27-60-7381Cxuhgtl encounter /04/2025 2:00 PM EDT Office Visit [facility] - Heart Failure Clinic [address] [place] [phone] Odessa Cook, OUTBOARD MOTOR TESTER-FUEL CELL DESIGNER [address] [place] [address] [facility] - Heart Failure ClinicStart: 11-07-2024 End: 25-32-8791Grcaktn encounter mmrtvwtef30/14/2025 2:30 PM EDT Office Visit [facility] [address] [facility] [place] [phone] Rajni Cardozo, [address] [facility], [id number] [facility] - Family MedicineStart: 11-07-2024 End: 44-98-8406EJ Knee - right 3 ViewsX-ray knee right 3 views Imaging Routine Patellar tendinitis of right knee Expected: 11/07/2024, Expires: 11/07/2025 Dirk Work Phone: Comment on above:Expected: 11/07/2024, Expires: 11/07/2025Start: 11-02-2024 End: 17-24-5404Uuddqul encounter lrgvbegdj98/09/2025 8:30 AM EDT Appointment [facility] - Radiology [address] [place] [address] [phone]'S Daughters [facility] [place] - RadiologyStart: 11-01-2024 End: 65-03-5259Qmflcui encounter bymdrgupy19/08/2025 4:30 PM EDT Appointment [facility] - Total Rehab [address] [place] [address] Cervicogenic headacheProMedica [facility] - Total RehabComment on above:Cervicogenic headacheStart: 26-52-1432Uedlk BMI ScreeningAdult BMI ScreeningProMedica Health SystemStart: 69-77-4887Mqdpkswfdc ScreeningDepression ScreeningProMedica Health SystemStart: 17-21-9754Pcqryyr ScreeningTobacco ScreeningProMedica Health SystemStart: 10-27-2024 End: 71-59-3475VV Gastrointestinal tract upper Views W air contrast PO and W barium contrast POFluoroscopy upper GI with esophagus Imaging Routine Nausea and vomiting, unspecified vomiting type Expected: 10/27/2024, Expires: 10/27/2025 [facility] SystemComment on above:Expected: 10/27/2024, Expires: 10/27/2025Start: 57-62-1445Ermzn BMI ScreeningAdult BMI ScreeningProMedica Health SystemStart: 54-97-1925Uqvsuzs ScreeningTobacco ScreeningProWilson Street Hospitalca Health SystemStart: 10-07-2024 End: 11-55-2453Xpaljyu encounter bziarwqhx87/13/2025 11:30 AM EDT Office Visit [facility] [address] [place] [address] Rajni Cardozo, [address] [place] [address] [facility] - Family MedicineStart: 89-80-5867Faqgw BMI ScreeningAdult BMI ScreeningProMedica Health SystemStart: 67-08-9010Uzklesgkqa ScreeningDepression ScreeningProMedica Health SystemStart: 99-30-4621Smgkypv ScreeningTobacco ScreeningProMedica Health SystemStart: 91-55-7490Ajntm BMI ScreeningAdult BMI ScreeningProMedica Health SystemStart: 72-83-8389Rqwupnteqd ScreeningDepression ScreeningProMedica Health SystemStart: 52-15-1587Twxfpap ScreeningTobacco ScreeningProMedica Health SystemStart: 09-21-2024 End: 73-61-3696Tkdvpre encounter rvfsijxxg79/28/2025 3:00 PM EDT Office Visit [facility] MOSLEY [address] [place] [address] Sydnie Guerrero, DO [address] [place] [address] Alejandro GOMEZ PULMComment on above:ArrivedStart: 09-17-2024 Adult BMI ScreeningAdult BMI ScreeningProMedica Health SystemStart: 09-08-2024 Adult BMI ScreeningAdult BMI ScreeningProMedica Health SystemStart: 09-08-2024 Depression ScreeningDepression ScreeningProMedica Health SystemStart: 09-08-2024 Tobacco ScreeningTobacco ScreeningProMedica Health SystemStart: 99-43-6409Zuptz BMI ScreeningAdult BMI ScreeningProMedica Health SystemStart: 69-12-3960Fejbiuv ScreeningTobacco ScreeningProMedica Health SystemStart: 33-38-2760Rjlxj BMI ScreeningAdult BMI ScreeningProMedica Health SystemStart: 11-42-6948Uzacqjnwuu ScreeningDepression ScreeningProMedica Health SystemStart: 42-01-2277Vreehqm ScreeningTobacco ScreeningProMedica Health SystemStart: 90-75-0619Zsacn BMI ScreeningAdult BMI ScreeningProMedica Health SystemStart: 39-95-9488Gjtlbvg ScreeningTobacco ScreeningProMedica Health SystemStart: 76-37-6561Asudb BMI ScreeningAdult BMI ScreeningProMedica Health SystemStart: 37-18-1197Kbsqxev ScreeningTobacco ScreeningProMedica Health SystemStart: 16-78-6681Fjjbt BMI ScreeningAdult BMI ScreeningProMedica Health SystemStart: 28-46-4184Eqaxysxmue ScreeningDepression ScreeningProMedica Health SystemStart: 94-08-7325Mbunavh ScreeningTobacco ScreeningProMedica Health SystemStart: 06-29-2024 End: 46-05-9484Xmxhhnr encounter ldodwpbdx84/05/2025 3:00 PM EST Office Visit [facility]ON MOSLEY [address] [place] [address] Sydnie Guerrero, DO [address] [place] [address] [facility]ON PULMStart: 10-97-4508Hufyj BMI ScreeningAdult BMI ScreeningProMedica Health SystemStart: 14-50-3786Obibehi ScreeningTobacco ScreeningProWilson [address] Hospitalca Health SystemStart: 06-08-2024 End: 53-54-9351Spmgdhq encounter zqxwxzyum30/12/2025 1:00 PM EST Office Visit [facility] [address] [place] [address] Rajni Cardozo, DO [address] [place], [id number] [facility] - Family MedicineStart: 05-13-1929Ghujy BMI ScreeningAdult BMI ScreeningProWilson Street Hospitalca Health SystemStart: 64-05-6892Zntvigeglj ScreeningDepression ScreeningPro[address] Hospitalca Health SystemStart: 56-11-7299Hoflwtc ScreeningTobacco ScreeningBrecksville VA [facility] Hospitalca Health SystemStart: 33-25-1653Ksfqr BMI ScreeningAdult BMI ScreeningProWilson [address] Hospitalca Health SystemStart: 61-27-0911Pkdgjzk ScreeningTobacco ScreeningBrecksville [facility] Hospitalca Health SystemStart: 03-17-2024 End: 21-92-4775Gorzbjw encounter zesfvrwuq69/21/2024 1:00 PM EST Consult [facility] [address] [place] [address] Sydnie Guerrero, DO [address] [place] [address] ArrivedNOMS PULMComment on above:ArrivedStart: 03-10-2024 End: 10-75-0474Jqtislw encounter fdmuoteyt97/14/2024 3:00 PM EST Office Visit [facility] [address] [place] [address] Grace Meadows, DO [address] [address] [facility]/Sleep MedicineStart: 03-07-2024 End: 55-70-8511Afavqfr encounter lszmaebuq85/11/2024 1:00 PM EST Office Visit [facility] [address] [place] [address] Rajni Cardozo, DO [address] [facility] [id number] [facility] - Family MedicineStart: 02-19-2024 End: 99-24-8140Jqwgezo encounter bekelrkzr66/25/2024 10:45 AM EDT Office Visit [facility] [address] [place] [address] Alex Amos MD [address] [place] [address] Saqib Giles MD [address] [facility] [place] [phone] (Work) [facility] CardiologyStart: 02-09-2024 End: 20-09-0374Zruutaq encounter stlhndeax60/15/2024 1:30 PM EDT Office Visit [facility] [address] [place] [address] Eusebia Huertas, DO [address] [place] [address] [facility]THOPAEDICSStart: 01-21-2024 End: 89-71-5117Eplaeem encounter qipvcjczz61/26/2024 10:00 AM EDT Office Visit [facility] [address] [facility] [place] [address] Grace Meadows, DO [address] [facility] [address] [place] [address] [facility]/Sleep MedicineStart: 01-19-2024 End: 12-33-7964Txjorgx encounter procedureNOMS CI ORTHOPAEDICSStart: 01-14-2024 End: 90-18-9735Nkajogi encounter zdxcjtiur45/19/2024 3:00 PM EDT Office Visit [facility] [address] [place] [address] Grace Meadows, DO [address] [address] [facility]/Sleep MedicineStart: 01-12-2024 End: 45-74-1459Zekpbpa encounter fxdbviqhf59/17/2024 10:45 AM EDT Office Visit [facility] [address] [facility] [address] [place] [address] Eusebia Huertas, DO [address] [facility] [address] [place] [address] [facility]THOPAEDICSStart: 01-04-2024 End: 78-23-3477Tiphxfh encounter gndllgydg64/09/2024 1:00 PM EDT Office Visit [facility] [address] [place] [address] Rajni Cardozo, DO [address] [facility], [id number] [facility] - Family MedicineStart: 12-29-2023 End: 71-94-8741Loftlwd encounter oqqbofhhp71/03/2024 10:45 AM EDT Office Visit [facility] [address] [facility] [address] [place] [address] Eusebia Huertas, DO [address] [facility] [address] [place] [address] Compression fracture of T6 vertebra with routine healing, subsequent encounter; Compression fracture of T8 vertebra with routine healing, subsequent encounter; Osteoporotic compression fracture of vertebra with routine healing, subsequent encounterNOMS CI ORTHOPAEDICSComment on above:Compression fracture of T6 vertebra with routine healing, subsequent encounter; Compression fracture of T8 vertebra with routine healing, subsequent encounter; Osteoporotic compression fracture of vertebra with routine healing, subsequent encounterStart: 54-23-1641Dfnvkezyj vaccinationInfluenza VaccineAkron Children's Hospital SystemStart: 12-07-2023 End: 32-61-9718Ngsbmssx Hnttfbc3212/07/2023 8:00 PM EDT Clinical Support [facility] - Sleep Disorders [address] [place] [address] Grace Meadows, DO [address] [address] [facility] - Sleep DisordersStart: 12-03-2023 End: 75-61-6611Jkvsvoy encounter /08/2024 10:00 AM EDT Office Visit [facility] [address] [facility] [place] [address] Grace Meadows, DO [address] [address] [facility]/Sleep MedicineStart: 11-02-2023 End: 36-90-2189Moedvza encounter uayxlwelc82/08/2024 3:30 PM EDT Office Visit [facility] [address] [place] [address] Rajni Cardozo, DO [address] [facility] [id number] [facility] - Family MedicineStart: 10-06-2023 End: 86-72-7730Jglygfz encounter procedureCincinnati [facility] - Mammogram DEXAStart: 09-30-2023 End: 74-42-0577Cqaqaqt encounter iyumpocpz82/05/2024 1:30 PM EDT Office Visit [facility] [address] [place] [address] Rajni Cardozo, DO [address] [facility] [place], [id number] [facility] Internal Medicine - Family MedicineStart: 09-11-2023 End: 15-48-8077Tzdrdff encounter saoypwjmu38/17/2024 1:00 PM EDT Appointment [facility] - Mammography [address] [place] [address] [phone] Harris [facility] - MammographyStart: 09-10-2023 End: 19-90-3350Egxyrxh encounter procedureCincinnati [facility] - VascularStart: 09-10-2023 End: 70-04-0418Vrqycxj encounter qawnqkzgf08/16/2024 8:15 AM EDT Appointment [facility] - MRI Imaging [address] [place] [address] Rajni Cardozo, DO [address] [place] [address] [facility] - MRI ImagingStart: 09-09-2023 End: 63-18-2955Tmpszxi encounter xnfeinlak27/15/2024 1:00 PM EDT [facility] [address] [place] [address] Rajni Cardozo, DO [address] [place], [place] [facility] Internal Medicine - [facility] MedicineStart: 08-11-2023 End: 57-30-8529Wqlkpdfg Mqmeawn3208/11/2023 8:00 PM EDT Clinical Support [facility] - Sleep Disorders [address] [place] [address] Grace Maedows, DO [address] [place] [id number] [facility] - Sleep DisordersStart: 08-10-2023 End: 73-13-9129Vzxghxg encounter xgszmnpux18/15/2024 1:00 PM EDT [facility] [address] [place] [address] Rajni Cardozo, DO [address] [place] [id number] [facility] - Family MedicineStart: 08-03-2023 End: 37-57-6324Lalltmf encounter uqcaervrc17/08/2024 10:00 AM EDT Office Visit [facility] [address] [place] [address] Cynthia Buchanan, OUTBOARD MOTOR TESTER[employer]EL CELL DESIGNER [address] [place] [address] [facility] ClinicStart: 07-27-2023 End: 54-95-7069Fvhaybo encounter vgzplvpda17/01/2024 8:30 AM EDT Office Visit [facility] [address] [place] [address] Cynthia Buchanan, OUTBOARD MOTOR TESTER-FUEL CELL DESIGNER [address] [place] [address] [facility] Failure ClinicStart: 07-01-2023 End: 58-08-1356Bacqkoj encounter procedureProMedica [facility] - Pulmonary FunctionStart: 06-29-2023 End: 17-84-0608Tesvaim encounter azbalnrij42/04/2024 12:00 PM EST Office Visit [facility] [address] [facility] [place] [address] Rajni Cardozo, DO [address] [place] [address] [facility] - Family MedicineStart: 06-25-2023 End: 01-27-5432Yruusap encounter chhedqahq92/29/2024 10:00 AM EST Office Visit [facility] [address] [facility] [address] Grace Meadows, DO [address] [address] [facility]/Sleep MedicineStart: 06-01-2023 End: 67-72-4125Smqghgx encounter mqdrubvoj19/05/2024 1:30 PM EST Office Visit [facility] [address] [place] [address] Rajni Cardozo, DO [address] [place], [place] [facility] - [facility] MedicineStart: 50-13-4141Anuksmcyg vaccination Influenza VaccineProSalem City Hospital SystemStart: 34-03-0219Jowaiskmfm Screening Depression ScreeningProSalem City Hospital SystemStart: 87-73-9640Sbqcimqlfnqsah of varicella zoster vaccineZoster (Shingles) Vaccine (1 of 2)[facility] SystemStart: 95-67-5950Myrdrzxzgwkvti of varicella zoster vaccineZoster (Shingles) Vaccine (1 of 2)[facility] SystemStart: 93-23-1917TAcS,Tdap and Td Vaccines (1 - Tdap)DTaP,Tdap and Td Vaccines (1 - Tdap)[facility] SystemStart: 18-34-4055Roize BMI Follow Up PlanAdult BMI Follow Up PlanProSalem City Hospital SystemStart: 15-08-7313Oxcsjdbs foot examinationDiabetic Foot Exam [facility] SystemStart: 19-20-1498Tiibdksy screeningDiabetic Ophthalmology ExamAkron Children's Hospital SystemStart: 12-23-6049Hrpvez Use: CardiovascularStatin Use: CardiovascularCritical access hospitaltart: 31-47-0160Mftlmw Use: Diabetic Statin Use: DiabeticAkron Children's Hospital SystemStart: 63-67-6220Gyydabh Counseling Tobacco CounselingSelect Medical Specialty Hospital - CincinnatiBacteria identified in Blood by Aerobe cultureProESTmob Work Phone: End: 45-18-7041Fzgrw metabolic 1999 panel - Serum or PlasmaBasic Metabolic Panel Lab Routine Chronic heart failure with preserved ejection fraction ([facility]) 1 Occurrences starting 11/02/2023 until 11/01/2024[facility] HospitalData Driven Delivery System SystemComment on above:1 Occurrences starting 11/02/2023 until 11/01/2024 End: 13-80-8331Vjdtu metabolic 1999 panel - Serum or PlasmaBasic Metabolic Panel Lab Routine Chronic heart failure with preserved ejection fraction ([facility]) P ulmonary hypertension ([facility]) Nonrheumatic tricuspid valve regurgitation Essential hypertension 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 History of four vessel coronary artery bypass graft NSTEMI (non-ST elevated myocardial infarction) ([facility]) 1 Occurrences starting 11/28/2024 until 11/28/2025Pro[facility] Work Phone: Comment on above:1 Occurrences starting 11/28/2024 until 11/28/2025 End: 91-95-9916Cyxji metabolic 1999 panel - Serum or PlasmaBasic Metabolic Panel Lab Routine Chronic heart failure with preserved ejection fraction ([facility]) E ssential hypertension Pulmonary hypertension ([facility]) Nonrheumatic tricuspid valve regurgitation 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 History of four vessel coronary artery bypass graft 1 Occurrences starting 11/30/2024 until 11/30/2025Pro[facility] Work Phone: Comment on above:1 Occurrences starting 11/30/2024 until 11/30/2025 End: 56-44-7370Huozv metabolic 1999 panel - Serum or PlasmaBasic Metabolic Panel Lab Routine Chronic diastolic heart failure ([facility]) Pulmonary hypertension ( [facility]) Nonrheumatic tricuspid valve regurgitation 1 Occurrences starting 02/06/2025 until 02/06/2026Pro[facility] Work Phone: Comment on above:1 Occurrences starting 02/06/2025 until 02/06/2026 End: 57-93-4689MXE W Auto Differential panel - BloodCBC auto differential Lab Routine Chronic heart failure with preserved ejection fraction ([facility]) 1 Occurrences starting 11/02/2023 until 11/01/2024Pro[facility] Work Phone: Comment on above:1 Occurrences starting 11/02/2023 until 11/01/2024 End: 68-97-6843JOD W Auto Differential panel - BloodCBC auto differential Lab Routine Stage 3a chronic kidney disease ([facility]) 1 Occurrences starting 0 07/07/2024 until 07/07/2025Pro[facility] Work Phone: Comment on above:1 Occurrences starting 07/07/2024 until 07/07/2025 End: 39-89-4098Zjwriwsxnxbrm metabolic 2000 panel - Serum or PlasmaComprehensive metabolic panel Lab Routine Stage 3a chronic kidney disease ([facility]) 1 Occurrences starting 07/07/2024 until 07/07/2025ProUpower SystemComment on above:1 Occurrences starting 07/07/2024 until 07/07/2025 End: 70-10-9623Ozbinkdklaplib vitamin b-12Vitamin B12 Lab Routine B12 deficiency 1 Occurrences starting 11/02/2023 until 11/01/2024ProUpower SystemComment on above:1 Occurrences starting 11/02/2023 until 11/01/2024 End: 47-79-0996Guzawigmpbikqa vitamin b-12Vitamin B12 Lab Routine B12 deficiency 1 Occurrences starting 07/07/2024 until 07/07/2025ProUpower SystemComment on above:1 Occurrences starting 07/07/2024 until 07/07/2025 End: 80-05-3439HxxvvjiexesrolrhfklflhxhycORJ GI Routine Microcytic anemia Gastro-esophageal reflux disease without esophagitis 1 Occurrencesstarting 12/15/2024 until 12/15/2025Pro[facility] Work Phone: Comment on above:1 Occurrences starting 12/15/2024 until 12/15/2025Esophagogastroduodenoscopy transoral diagnostic ESOPHAGOGASTRODUODENOSCOPY DIAGNOSTIC Microcytic anemiaFREMONT ENDOSCOPY End: 48-03-1210Wegaooejgr A1c/Hemoglobin.total in BloodHemoglobin A1c Lab Routine IFG (impaired fasting glucose) 1 Occurrences starting 07/07/2024 until 07/07/2025ProUpower SystemComment on above:1 Occurrences starting 07/07/2024 until 07/07/2025 End: 56-35-4052Nqkfycgcbd A1c/Hemoglobin.total in BloodHemoglobin A1c Lab Routine Type 2 diabetes mellitus with stage 3a chronic kidney disease, without long-term current use of insulin ([facility]) 1 Occurrences starting 10/27/2024 until 10/27/2025Pro[facility] Work Phone: Comment on above:1 Occurrences starting 10/27/2024 until 10/27/2025Hemoglobin A1c/Hemoglobin.total in BloodHemoglobin A1c Lab Routine Type 2 diabetes mellitus with stage 3a chronic kidney disease, without long-term current use of insulin ([facility]) 10/27/2024 4:57 PM [facility] Survios [facility] End: 24-72-5985Uqegb 1996 panel - Serum or PlasmaLipid profile Lab Routine 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 ([facility]) 1 Occurrences starting 07/07/2024 until 07/07/2025 [facility] Survios SystemComment on above:1 Occurrences starting 07/07/2024 until 07/07/2025 End: 19-56-3125Dsvvbvfes [Mass/volume] in Serum or PlasmaMagnesium Lab Routine Chronic heart failure with preserved ejection fraction ([facility]) 1 Occurrences starting 11/02/2023 until 11/01/2024[facility] CenterUpower SystemComment on above:1 Occurrences starting 11/02/2023 until 11/01/2024 End: 94-65-3602Ogembwzrragaxuy 4 or more parameters with PAP titration Polysomnography 4 or more parameters with PAP titration Sleep Center Routine BONY (obstructive sleepapnea) Hypoxemia associated with sleep 1 Occurrences starting 08/14/2023 until 08/13/2024Pro[facility] Work Phone: Comment on above:1 Occurrences starting 08/14/2023 until 08/13/2024 End: 80-60-6601Vxeqzkisj function test Spirometry (Flow Volume Loop) pre/post short acting bronchodilator w/ DLCO (diffusion study)Pulmonary function test Spirometry (Flow Volume Loop) pre/post short acting bronchodilator w/ DLCO ( diffusion study) PFT Routine Chronic obstructive pulmonary disease, unspecified COPD type ([facility])1 Occurrences starting 06/25/2023 until 06/24/2024ProUpower SystemComment on above:1 Occurrences starting 06/25/2023 until 06/24/2024 End: 86-24-3620Xwxfi Night Sleep StudySplit Night Sleep Study Sleep Center Routine BONY treated with BiPAP 1 Occurrences starting 06/25/2023 until 06/24/2024Pro[facility] Work Phone: Comment on above:1 Occurrences starting 06/25/2023 until 06/24/2024 Immunizations Immunization DateImmunizationNotesCare LetyznsuQroaaffz33-12-4134uttphgjvaf skin test; purified protein derivative solution, intradermalLeanne Cesar DO Work Phone: [employer]IL Ymodexzjxr50-43-2274xjflsmjgzl skin test; unspecified formulationCandler Hospital LeviEating Recovery Center a Behavioral Hospital for Children and AdolescentsRapid Diagnostek Bixrfm82-56-9014tncqnvuhau skin test; purified protein derivative solution, intradermalLeanne Cesar DO Work Phone: noRijuvenZtqcjfeowj96-40-0763pjcsziqijr skin test; unspecified formulationJefferson Memorial Hospital Payers DatePayer CategoryPayerPolicy [id number] 2025Unknown 2024Medicare (Managed Care)[id number] 2024Medicare [id number] [id number] 2024Private Health Nwrirgkps20-69-1892Nqog-sct [id number] 2022Medicare [id number] Health Insurance [id number] [id number] [id number] [id number] [id number] 2.840.1.325907.3.579.2.938176-82-3085Roynlod1299679 2.840.1.960835.3.579.2.880940-48-5160Agbvgru6572713 2.840.1.634841.3.579.2.825825-28-1465Rrtkigk4562912 2..840.1.307486.3.579.2.925085-72-2610Wxybdfi4140885 2.840.1.996119.3.579.2.620461-71-8831Okzcess5678413 2.16840.1.091730.3.579.2.083245-62-1290Zcthycw6444071 2.16840.1.600700.3.579.2.520420-93-8365Kdykypp8156131 2.16840.1.982184.3.579.2.201181-76-3132Frthnci0051641 2.16840.1.168537.3.579.2.851014-61-4758Xrgnmyu2576961 2.16.840.1.686540.3.579.2.192909-70-1529Lcfdjsk1304941 2.16.840.1.005779.3.579.2.583309-64-5674Bmhsmcj5364291 2.16.840.1.426704.3.579.2.154049-61-7283Exoozzl8548951 2.16840.1.181121.3.579.2.110029-64-8383Jeaugbu0154237 2.16840.1.487381.3.579.2.958828-04-7338Peibbtn4347038 2.16840.1.425850.3.579.2.193125-13-0327Qbrvkqo963517919 2.840.1.914507.3.579.2.385602-33-9793Ubctkah14633635 2.840.1.601864.3.579.2.725836-71-8397Qhlmqca27499806 2.16840.1.408269.3.579.2.830347-62-4844Tdorpdz56728258 2.16840.1.061176.3.579.2.300189-39-4397Pgnuuay60198890 2.840.1.388345.3.579.2.022600-20-8655Mjjjnqv5483852 2.16840.1.460226.3.579.2.412837-92-7348Fnskgsb2486208 2.16840.1.386473.3.579.2.752889-41-0447Ewcmwzo2986658 2.16840.1.828460.3.579.2.202171-22-4485Qnwxsud6903823 2.16840.1.364643.3.579.2.767020-91-4870Xjhikdj5601326 2.16.840.1.893640.3.579.2.292989-93-8302Zhuyagm7635947 2.16.840.1.195448.3.579.2.466059-25-4605Gsgswuh2516457 2.16.840.1.366952.3.579.2.840946-40-0816Gepbzwp9404050 2.16.840.1.892311.3.579.2.007667-96-3778Wrkxozv3267168 2.16840.1.235158.3.579.2.055608-65-9479Kxfmrio2681943 2.16840.1.695631.3.579.2.175836-96-3923Bgxedfu391511822 2.840.1.124669.3.579.2.107458-34-1900Nfqzqhr007385599 2.840.1.818501.3.579.2.099407-54-1801Ljleyrb572407261 2.840.1.251035.3.579.2.055609-91-8129Pcfjyur978452992 2.840.1.746455.3.579.2.788448-73-6145Piwlpam929840781 2.840.1.268482.3.579.2.685691-95-9636Fsxtmvh20084253 2.840.1.377666.3.579.2.523996-30-2767Zssqglp44141847 2.840.1.130143.3.579.2.323697-81-8798Fxubwvz482463280 2.16840.1.445999.3.579.2.943606-38-5023Reasyht74680531 2.16.840.1.391056.3.579.2.453514-80-3856Ycflctn951900303 2.16.840.1.205836.3.579.2.99341-36-9267Syzfyez901749394 2.16.840.1.833145.3.579.2.21186-67-5011Pfxqtfy092003388 2.840.1.637523.3.579.2.08504-35-6499Klombrx328148555 2.840.1.610332.3.579.2.71995-68-0017Hljnjub458629599 2.0.1.984626.3.579.2.90156-28-7547Zhclmki417055932 2.840.1.960058.3.579.2.51809-41-2341Tuuglpq790872005 2.0.1.582456.3.579.2.619176-45-3502Ponvwgc111294649 2.0.1.082594.3.579.2.322949-16-3830Euoycpc902841395 2.840.1.880428.3.579.2.573433-84-7530Faflcid985885583 2.0.1.059054.3.579.2.679537-78-1011Jarzwfl655097375 2.840.1.811556.3.579.2.824535-29-7825Qwconkb463423533 2.840.1.002942.3.579.2.062546-04-6470Hhvpymo211602922 2.840.1.796465.3.579.2.672763-85-2466Vmduket796275157 2.840.1.537205.3.579.2.109459-82-9039Dfsgpta849687599 2.0.1.631908.3.579.2.013051-74-3271Pjlyyld351407615 2.840.1.511354.3.579.2.873219-64-6159Ytbfzhr655920243 2.840.1.416335.3.579.2.586936-43-4293Dbpdakc761238987 2.840.1.840579.3.579.2.472505-34-7011Ttepcxg667598632 2..1.594867.3.579.2.191774-20-9862Ozvucea581454966 2.0.1.095652.3.579.2.365774-85-8880Jgywrgl842294447 2.0.1.320063.3.579.2.835152-57-6419Xlyvcrl196044169 2.0.1.481028.3.579.2.975502-53-5157Rcmdymt323362650 2..1.234901.3.579.2.722511-15-9727Autnmjb080606927 2.0.1.046178.3.579.2.936508-51-6027Ebgkmbb669837519 2.0.1.940005.3.579.2.1286MedicaidMedicaid [id number] 2.16840.1.482329.19 [id number] Social History DateTypeDetailFacilityStart: 09-25-1981 End: 41-04-7686Qpodlyc smoking status NHISSmoker (finding)[facility]: 95-26-9286Lrb Assigned At BirthFeCorey Hospitaltart: 07-25-2023 End: 40-70-2599Nan Assigned At BirthAkron Children's Hospital SystemStart: 09-24-2023 End: 14-59-0122Qouxobx smoking status NHISEx-smokerAkron Children's Hospital SystemStart: 09-25-1981 End: 40-22-8161Freodqo of tobacco useCigarette SmokerAkron Children's Hospital System Start: 01-22-2024 End: 71-96-2642Ltgjxoj use and exposureFormer smokeless tobacco userCritical access hospitaltart: 01-22-2024 End: 13-37-4340Wperhruqs beverage intakeEx-drinker (finding)Critical access hospitaltart: 07-25-2023 End: 36-39-7223Hioyxyq of Social functionAkron Children's Hospital SystemStart: 74-87-4391Pvy assigned at birthNot on [facility] CenterStart: 09-25[facility]1981 End: 91-69-1480Frrfjax smoking status NHISSmokes tobacco dailyCritical access hospitaltart: 08-11-2023 End: 81-28-3072Bjxcaut use and exposureSmokeless tobacco non-userAkron Children's Hospital SystemHas the [employer], gas, oil, or water [employer] threatened to shut off services in your home in past 12MoNLake County Memorial Hospital - West SystemAre you now , , , , never or living with a partner? [facility] SystemHow often to you have a drink containing alcohol?Never Critical access hospitaltart: 80-77-9159Ics many standard drinks containing alcohol do you have on a typical day?Patient does not drinkMercy Health Perrysburg Hospital Health SystemHow hard is it for you to pay for the very basics like food, housing, medical care, and heatingSomewhat hardProSalem City Hospital SystemDo you feel stress - tense, restless, nervous, or anxious, or unable to sleep at night because your mind is troubled all the time - these days [OSQ]Only a littleCritical access hospitaltart: 20-18-5440Mbuuewv Comment5-6 cigerettes a dayCritical access hospitaltart: 00-65-1493Xdxvrkz Commentlast use 15 years agoCritical access hospitaltart: 57-37-1300JqlHrpvui (finding)[facility] SystemStart: 11-73-3325Hkyvqw identityIdentifies as female gender (finding)[facility] SystemStart: 36-83-8618Syxjae orientationHeterosexual (finding)[facility] SystemHistory of tobacco useChews TobaccoAkron Children's Hospital SystemStart: 04-29-2023 End: 30-08-9578Uopalps intakeCurrent non-drinker of alcohol (finding)[facility]How hard is it for you to pay for the very basics like food, housing, medical care, and heatingNot very hardSelect [facility] Specialty Hospital - [facility] Medical Equipment Procedure CodeEquipment CodeEquipment Original TextEquipment IdentifierDatesDes Macrina Monreal 2.75x28 Rx - [id number], [id number] FDAStart: 36-49-2503Hfg Macrina Monreal 2.75x8 Rx - [id number], [id number] FDAStart: 01-09-2020 Goals DatePatient GoalDesired Activity/StatePersonal health goalComment on above: Evaluation of progress towards goal: under assessmentPersonal health goalComment on above: Evaluation of progress towards goal: feeling better, monitor for home L5Ascvacnv health goalComment on above: Evaluation of progress towards goal: Pt's goal is to go to SNF at discharge for short term rehab. -DEENA LOREDO 04/25/23 3:55 PM Personal health goalComment on above: Evaluation of progress towards goal: feeling betterPersonal health goalPersonal health goal Functional Status DateAssessmentResultUniversity Hospital Clinical Notes 12-11-2022 to 02-08-2025 Note Date & CxadVztnGbmygtzq86-70-0285 Telephone encounter Note* Telephone Encounter - Magali Kelly - 02/08/2025 11:19 AM EDT Hi, this is to be cool calling for Dr Cruz. I really need to move my appointment up as soon as possible. My phone number [phone]. My date is 124 3. Thank you. Patient would like to move appointment up attempted to return call but was unable to reach patient.Correction, patient returned call,, Pt is willing to travel to [place], She states that BiPap is not working correctly . [employer] is the company she uses for her bi pap, and was told nothing wrong, that pt must be using the mask wrong. She would like to move her appt up. [facility] [id number] Miscellaneous Notes* Telephone Encounter - Magali Kelly - 02/08/2025 11:19 AM EDT Hi, this is to be cool calling for Dr Cruz. I really need to move my appointment up as soon as possible. My phone number [phone]. My date is 124 3. Thank you. Patient would like to move appointment up attempted to return call but was unable to reach patient.Correction, patient returned call,, Pt is willing to travel to [place], She states that BiPap is not working correctly . [employer] is the company she uses for her bi pap, and was told nothing wrong, that pt must be using the mask wrong. She would like to move her appt up. documented in this encounterNortheast Missouri Rural Health [id number] History of Present illness Narrative* Risa Summers MD - 02/06/2025 3:30 PM EDT Images from the original note were not included. [facility] Patient: Monet Recinos Date of : 1960 Age: 64 y.o. Date of Encounter: 02/06/2025 REASON FOR VISIT: Chronic heart failure. Dear Rajni Cardozo Jr, DO We [facility] the [facility] Ms. Recinos is [...] enlargement, trace AI, trace to mild MR, aotx-lw-wsopviiq TR,RVSP 44 mmHg PFT 07/01/2023: FEV 1 [...] mouth in the morning. 90 tablet 3 wzfsqxgzcv-umbqwkrt-gungnvffhk (BREZTRI AEROSPHERE) 160-9-4.8 mcg/actuation HFA aerosol inhaler [...] 1 tablet before bedtime. 60 tablet 2 murgfq-vtcubsewh-cco,al-simeth (FIRST-MOUTHWASH BLM) [id number] mg/30mL mouthwash Take 5 mL by mouth [...] 3 mL 3 mL intravenous PRN Rajni Cardozo, ALLERGIES Allergies Allergen Reactions Penicillins Anaphylaxis Other [...] failure/COPD, on oxygen; follows with pulmonology at [facility] History of PE Iron-deficiency anemia, [...] ordination of care. 02/06/2025 Risa Summers M.D., [facility], [facility] [address] [facility] [address] [place] [address] Fax This note was completed using a voice medical transcriptionist system. Every effort was made to ensure accuracy. However, inadvertent computerized medical transcriptionist errors may be present. * Jazmín Acevedo RN - 02/06/2025 12:00 PM EDT Instructed patient on daily weights, fluid restriction, and low sodium diet. Advised of s/s requiring ER treatment or to call the office. Heart failure education provided: Yes. Patient verbalized understanding. documented in this encounterSelect Medical [facility]ty [facility]10-13-2025 Instructions* Patient Instructions* Risa Summers MD - 02/06/2025 [...] by calling the Heart Failure Clinic at [phone]. Please call 911 for emergencies. documented in this encounterSelect Medical Specialty Hospital - [place]10-13-2025 Miscellaneous Notes* Telephone Encounter - Tosin Reyes CMA - 02/06/2025 9:45 AM EDT Franci from [facility] pain management called and stated that patient voiced concern of that she wanted to restart the gabapentin. Doctor was wondering why it was discontinued? * Telephone Encounter - Rajni Cardozo DO - 02/06/2025 9:45 AM EDT Message noted. Side effects. We replaced it with pregabalin. I do not know who Franci is, but she should know these things. And if she does not, she should not be asking the questions. * Telephone Encounter - Tosin Reyes CMA - 02/06/2025 9:45 AM EDT Notified Franci documented in this encounterSelect Medical Specialty Hospital - [place]10-13-2025 Telephone encounter Note* Telephone Encounter - Tosin Reyes CMA - 02/06/2025 9:45 AM EDT Franci from [facility] pain management called and stated that patient voiced concern of that she wanted to restart the gabapentin. Doctor was wondering why it was discontinued? [facility]10-13-2025 Telephone encounter Note* Telephone Encounter - Rajni Cardozo DO - 02/06/2025 9:45 AM EDT Message noted. Side effects. We replaced it with pregabalin. I do not know who Franci is, but she should know these things. And if she does not, she should not be asking the questions. [facility]10-13-2025 Telephone encounter Note* Telephone Encounter - Tosin Reyes CMA - 02/06/2025 9:45 AM EDT Notified Franci [facility]10-10-2025 Miscellaneous Notes* Telephone Encounter - Antoinette Sanchez CNA - 02/03/2025 1:55 PM EDT LEFT VOICEMAIL REMINDER ABOUT APPOINTMENT ON THURSDAY 3:30. documented in this encounterSelect Medical Specialty Hospital - [place]10-10-2025 Telephone encounter Note* Telephone Encounter - Antoinette Sanchez CNA - 02/03/2025 1:55 PM EDT LEFT VOICEMAIL REMINDER ABOUT APPOINTMENT ON THURSDAY 3:30. [facility]10-01-2025 Telephone encounter Note* Telephone Encounter - Fabricio Lange - 01/25/2025 3:36 PM EDT Friend called- Norma has gone without Bi-pap x3 days - she said [employer] needs order for Bi-pap w settingsas well as - Reg O2 concentrator, and personal concentrator To [employer] -Fonda If already sent pls disregard - ty [facility] [id number] Miscellaneous Notes* Telephone Encounter - Fabricio Lange - 01/25/2025 3:36 PM EDT Friend called- Norma has gone without Bi-pap x3 days - she said [employer] needs order for Bi-pap w settingsas well as - Reg O2 concentrator, and personal concentrator To [employer] -Fonda If already sent pls disregard - ty documented in this encounterNortheast Missouri Rural Health [id number] Miscellaneous Notes* Perioperative Nursing Note - Patricia Huertas RN - 01/03/2025 3:50 PM EDT Preoperative Education Checklist- General Surgery date: 01/04/25 Surgery time: 1000 Arrival time: 0900 1. Bring a photo ID and your insurance card with you the day of surgery. You will check in at the main lobby of the [facility]- registration desk is straight ahead as soon as you walk in. Tell them you are here for surgery. 2. If you have a Living Will/Durable Power of Cotton Factor for Health Care that is not on [...] after you have bathed. 5. NO nail greenlandic/acrylic on at least one finger. If you are having a hand, wrist or foot surgery then all nail greenlandic and artificial/acrylic nails must be removed from [...] please call the Preadmission Testing office at [phone], Mon.-Fri. 7 a.m.-3 p.m. Leave a voicemail [...] Stop taking 0 days prior to procedure bggfhozyzr-kphpjugg-qvhcvfvgfv (BREZTRI AEROSPHERE) 160-9-4.8 mcg/actuation HFA aerosol inhaler [...] days prior to procedure documented in this encounterSelect Medical Specialty Hospital - [facility]09-09-2025 Nurse Note* Perioperative Nursing Note - Patricia Huertas RN - 01/03/2025 3:50 PM EDT Preoperative Education Checklist- General Surgery date: 01/04/25 Surgery time: 1000 Arrival time: 0900 1. Bring a photo ID and your insurance card with you the day of surgery. You will check in at the main lobby of the [facility]- registration desk is straight ahead as soon as you walk in. Tell them you are here for surgery. 2. If you have a Living Will/Durable Power of Cotton Factor for Health Care that is not on [...] after you have bathed. 5. NO nail greenlandic/acrylic on at least one finger. If you are having a hand, wrist or foot surgery then all nail greenlandic and artificial/acrylic nails must be removed from [...] please call the Preadmission Testing office at [phone], Mon.-Fri. 7 a.m.-3 p.m. Leave a voicemail [...] Stop taking 0 days prior to procedure ybnfooyenu-kxiroabx-epeyewkwqr (BREZTRI AEROSPHERE) 160-9-4.8 mcg/actuation HFA aerosol inhaler [...] Stop taking 0 days prior to procedure [facility] [id number] Telephone encounter Note* Telephone Encounter - Magali Kelly - 01/03/2025 9:36 AM EDT Pt gets bi-pap machine from [employer] Pt was told that she due for a renewal order for her Bipap, also her condenser Phone number is for Ro tech [facility] [id number] Miscellaneous Notes* Telephone Encounter - Magali Kelly - 01/03/2025 9:36 AM EDT Pt gets bi-pap machine from [employer] Pt was told that she due for a renewal order for her Bipap, also her condenser Phone number is for Ro tech documented in this encounterNortheast Missouri Rural Health [id number] Miscellaneous Notes* Perioperative Nursing Note - Patricia Huertas RN - 12/19/2024 2:40 PM EDT Preoperative Education Checklist- General Surgery date: 12/20/24 Surgery time: 1000 Arrival time: 0900 1. Bring a photo ID and your insurance card with you the day of surgery. You will check in at the main lobby of the [facility]- registration desk is straight ahead as soon as you walk in. Tell them you are here for surgery. 2. If you have a Living Will/Durable Power of Cotton Factor for Health Care that is not on [...] after you have bathed. 5. NO nail greenlandic/acrylic on at least one finger. If you are having a hand, wrist or foot surgery then all nail greenlandic and artificial/acrylic nails must be removed from [...] please call the Preadmission Testing office at [phone], Mon.-Fri. 7 a.m.-3 p.m. Leave a voicemail [...] Stop taking 0 days prior to procedure tlsncchokh-vcqcfwga-ixxhmvovow (BREZTRI AEROSPHERE) 160-9-4.8 mcg/actuation HFA aerosol inhaler [...] days prior to procedure documented in this encounterSelect Medical Specialty Hospital - [facility]08-25-2025 Nurse Note* Perioperative Nursing Note - Patricia Huertas RN - 12/19/2024 2:40 PM EDT Preoperative Education Checklist- General Surgery date: 12/20/24 Surgery time: 1000 Arrival time: 0900 1. Bring a photo ID and your insurance card with you the day of surgery. You will check in at the main lobby of the [facility]- registration desk is straight ahead as soon as you walk in. Tell them you are here for surgery. 2. If you have a Living Will/Durable Power of Cotton Factor for Health Care that is not on [...] after you have bathed. 5. NO nail greenlandic/acrylic on at least one finger. If you are having a hand, wrist or foot surgery then all nail greenlandic and artificial/acrylic nails must be removed from [...] please call the Preadmission Testing office at [phone], Mon.-Fri. 7 a.m.-3 p.m. Leave a voicemail [...] Stop taking 0 days prior to procedure qbrncigiqc-ppadrirs-qiyykdkvmf (BREZTRI AEROSPHERE) 160-9-4.8 mcg/actuation HFA aerosol inhaler [...] Stop taking 0 days prior to procedure [facility]08-21-2025 History of Present illness Narrative* Rajni Cardozo, DO - 12/15/2024 12:30 PM EDT Subjective [...] Exam Vitals reviewed. Exam conducted with a character impersonator present (Friend/POA). Constitutional: General: She is not [...] EGD; Future Stage 3a chronic kidney disease ([facility]-H[facility]) -patient now back on torsemide 20 [...] -further recommendations following testing documented in this encounterSelect Medical Specialty Hospital - [place]08-14-2025 Miscellaneous Notes* Telephone Encounter - Liz Norman RN - [...] chronic respiratory failure with hypoxia and hypercapnia ([facility]-H[facility]) Active Problems: Bipolar 2 disorder, major depressive episode ([facility]) Stage 3a chronic kidney disease ([facility]-HCC) Pulmonary hypertension ([facility]) Discharge Specialty: Other *Name of Discharging Facility: [facility] Date of Facility Discharge: 12/04/24-12/06/2024 Date of Interactive Contact and Name of Combination Saw Operator: 12/08/24 0956 Unable to reach patient. M [...] the Patient: NA * Telephone Encounter - Rajni Cardozo DO - 12/08/2024 7:48 AM EDT Message noted. documented in this encounterSelect Medical Specialty Hospital - [place]08-14-2025 Telephone encounter Note* Telephone Encounter - Liz Norman RN - [...] episode (CMS-HCC) Stage 3a chronic kidney disease (CMS-HCC) Pulmonary hypertension (CMS-HCC) Discharge Specialty: Other *Name of Discharging Facility: [facility] Date of Facility Discharge: 12/04/24-12/06/2024 Date of Interactive Contact and Name of Combination Saw Operator: 12/08/24 0956 Unable to reach patient. LVM [...] Other Services Utilized/Needed by the Patient: NA [facility] [id number] Telephone encounter Note* Telephone Encounter - Rajni Cardozo DO - 12/08/2024 7:48 AM EDT Message noted. [facility] CenterOwler, Inc. [id number] Miscellaneous Notes* Telephone Encounter - Fareed Norton RN - 11/30/2024 8:25 AM EDT ----- Message from PRAKASH Espinosa sent at 11/30/2024 11:52 AM EDT ----- Have her repeat labs again next week ----- Message ----- From: Kacey Sims RN Sent: 11/30/2024 8:28 AM EDT To: PRAKASH Linares Seen Thursday in [facility], restarted torsemide and you wanted labs in 1 week. She completed thenext day. ----- Message ----- From: Adonay, Background User Sent: 11/29/2024 7:25 PM EDT To: [facility] Clinical Staff documented in this encounterSelect Medical Specialty Hospital - [place]08-06-2025 Telephone encounter Note* Telephone Encounter - Fareed Norton RN - 11/30/2024 8:25 AM EDT ----- Message from PRAKASH Espinosa sent at 11/30/2024 11:52 AM EDT ----- Have her repeat labs again next week ----- Message ----- From: Kacey Sims RN Sent: 11/30/2024 8:28 AM EDT To: PRAKASH Linares Seen Thursday in [facility], restarted torsemide and you wanted labs in 1 week. She completed thenext day. ----- Message ----- From: Adonay, Background User Sent: 11/29/2024 7:25 PM EDT To: [facility] Clinical Staff [facility]08-04-2025 History of Present illness Narrative* PRAKASH Linares - 11/28/2024 2:00 PM EDT Images from the original note were not included. [facility] Patient: Monet Recinos Date of : 1960 Age: 64 y.o. Date of Encounter: 11/28/2024 REASON FOR VISIT: Chronic heart failure. Dear Rajni Cardozo Jr, DO & Rajni Cardozo, We had the pleasure of seeing your patient, Monet Recinos, in the [facility] on 11/28/2024. Ms. Recinos [...] obstructive sleep apnea/on BiPAP, bipolar disorder, former tobaccouse SUBJECTIVE Subjective HPI Ms. Recinos was last seen in the Heart failure Clinic in July 2023 and no medication changes were made at that time. Then in September 2023 her creatinine had increased to 1.85 and primary medicine discontinued her torsemide. Most recently was noted to have lower extremity swelling so primary care put rhys Lasix 40 mg for several days. Patient [...] with her today and reports that she hashigh heart rates that have been ongoing in [...] EF 55-60% moderate TR RVSP 42 mmHg [facility] 2020: Severe ostial left main, moderate OM, [...] mouth in the morning. 90 tablet 3 kbsjwjdmrl-dtwjexjb-otdwfcmiwd (BREZTRI AEROSPHERE) 160-9-4.8 mcg/actuation HFA aerosol inhaler [...] upstrokes bilaterally without bruits. Estimated CVP is 11- 15 cmH2O. Negative HJR. Regular rhythm with a [...] 42 mm per mercury 11/15 TTE 3. [place] coronary ASCVD status post CABG x4 08/15 without current anginal complaints 4. Primary Hypertension 5. COPD with former tobacco use 6. Obstructive sleep apnea just prescribed BiPAP 7. Obesity 8. Bipolar disorder on lithium 9. Former tobacco abuse quitting 2020 PLAN Ms. Recinos presents today describing class 3 heart failure symptoms. She is hypervolemic on exam. Shehas been off of diuretics and has had significant weight increase. She has pitting edema and JVD. Restart torsemide. She is to take 60 mg every day. She is tachycardic on exam and has a history of high heart rates therefore will start her on Kyokzw29 mg at nighttime Get blood work in [...] 3 tablets daily. May take take an additionaltablet as needed for swelling Dispense: 300 tablet [...] factor modification) and co ordination of care. 11/28/2024 Odessa Cook CNP [facility] This note was completed using a voice medical transcriptionist system. Every effort was made to ensure accuracy. However, inadvertent computerized medical transcriptionist errors may be present. PRAKASH Linares 11/28/24 1444 * Jazmín Acevedo RN - 11/28/2024 2:00 PM EDT Instructed patient on daily weights, fluid restriction, and low sodium diet. Advised of s/s requiring ER treatment or to call the office. Heart failure education provided: No. Patient verbalized understanding. Pt scheduled for echo while in office. Instructions reviewed with pt. documented in this encounterSelect Medical Specialty Hospital - [place]08-04-2025 Instructions* Patient Instructions* PRAKASH Linares - 11/28/2024 2:00 PM EDT [...] by calling the Heart Failure Clinic at [phone]. Please call 911 for emergencies. documented in this encounterBrecksville VA / Crille HospitalEnvoy Therapeutics Aspirus Ontonagon [id number] History of Present illness Narrative* Rajni Cardozo, DO - 11/07/2024 2:30 PM EDT IM PROGRESS NOTE Patient - Monet Recinos Age - 64 y.o. - 1960 [facility] [id number] ASSESSMENT & PLAN 1. Hiatal hernia with [...] persist 2. Stage 3a chronic kidney disease (CMS-HCC) -I reviewed the results of the recent [...] Exam Vitals reviewed. Exam conducted with a character impersonator present (Friend/POA). Constitutional: General: She is not [...] in the morning., Disp: 90tablet, Rfl: 3 tstiojhhkd-eemvkqrk-jcqcwhwdsn (BREZTRI AEROSPHERE) 160-9-4.8 mcg/actuation HFA aerosol inhaler, [...] Testing No results found. Rajni Cardozo DO., [facility] Office: [phone] documented in this encounterSelect Medical Specialty Hospital - [place]07-14-2025 Evaluation note* Diagnosis Hiatal hernia with GERD- Primary Stage 3a chronic kidney disease ([facility]) Patellar tendinitis of right knee Gastro-esophageal reflux disease without esophagitis Venous insufficiency of both lower extremities documented in this encounter [facility]07-09-2025 NoteFL UGI WITH ESOPHAGUS HISTORY: Nausea and [...] by Kai Finn MD on 11/02/2024 10:14 [facility] 10-27-2024 History of Present illness Narrative* Rajni Cardozo DO - 10/27/2024 4:15 PM EDT IM PROGRESS NOTE Patient - Monet Recinos Age - 64 y.o. - 1960 ASSESSMENT & PLAN 1. Type 2 diabetes mellitus with stage 3a chronic kidney disease, without long- term current use of insulin ([facility]) (Primary) - last A1c 6.5% -goals of [...] Chronic heart failure with preserved ejection fraction ([facility]) - GDMT: Aldactone, Jardiance, furosemide - will continue to wean off of propanolol over the next 2 weeks - at that time we can decide on replacement beta-georgi - propranoloL (INDERAL) 40 mg tablet; Take 1 tablet (40 mg total) by mouth in the morning. 4. Stage 3a chronic kidney disease ([facility]) - GFR ranges 45-54 over the past [...] daily. Unless she takes a dose of Alice-Denair along with the pantoprazole, she will get [...] Exam Vitals reviewed. Exam conducted with a character impersonator present (Friend/POA). Constitutional: General: She is not [...] in the morning., Disp: 90tablet, Rfl: 3 yapynxaumi-wblunbzh-dnwxbxbiui (BREZTRI AEROSPHERE) 160-9-4.8 mcg/actuation HFA aerosol inhaler, [...] Testing No results found. Rajni Cardozo DO., [facility]: [phone] documented in this encounter[facility] Evaluation note* Diagnosis Type 2 diabetes mellitus with stage 3a chronic kidney disease, without long-term current use of insulin ([facility])- Primary Venous insufficiency of both lower extremities Chronic heart failure with preserved ejection fraction ([facility]) Stage 3a chronic kidney disease ([facility]) Nausea and vomiting, unspecified vomiting type Arthritis of left sacroiliac joint Cervicogenic headache Headache documented in this encounter [facility]06[facility] History of Present illness Narrative* Rajni Janae Cardozo, DO - 10/07/2024 11:30 AM EDT IM PROGRESS NOTE Patient - Monet Recinos Age - 64 y.[facility]. [facility] 1960 [facility] [id number] ASSESSMENT & PLAN 1. Cervicogenic headache (Primary) [...] Chronic heart failure with preserved ejection fraction ([facility]) -GDMT: Jardiance, propanolol, spironolactone -may need [...] Exam Vitals reviewed. Exam conducted with a character impersonator present (Friend/POA). Constitutional: General: She is not [...] in the morning., Disp: 90tablet, Rfl: 3 hejeqageci-vsppdfnj-cloptnduoi (BREZTRI AEROSPHERE) 160-9-4.8 mcg/actuation HFA aerosol inhaler, [...] Testing No results found. Rajni Cardozo DO., [facility]: [phone] documented in this encounterBrecksville VA / Crille HospitalEnvoy Therapeutics [facility] [id number] History of Present illness Narrative* Sydnie Guerrero [...] needed for wheezing, Disp:18 g, Rfl: 5 Zowaaia-Wusxdrrqcjr-Coyxnufflv (Breztri Aerosphere) 160-9-4.8 MCG/ACT aerosol, Inhale 2 [...] History: Diagnosis Date Agoraphobia Angina at rest ([facility]) Anxiety Arthritis of left sacroiliac joint (CMS/HCC) 07/07/2024 BiPAP (biphasic positive airway pressure) dependence Bipolar disorder Breast injury CAD (coronary artery disease) (CMS/HCC) Cervical disc disorder Chronic kidney disease Cigarette nicotine dependence in remission 10/16/2020 Congestive heart failure (CHF) ([facility]) COPD (chronic obstructive pulmonary disease) ([facility]) COVID-19 04/29/2023 Dementia ([facility]) Dependence on other enabling machines and devices 04/29/2023 Depression ([facility]) Difficulty in walking, not elsewhere classified 04/28/2023 Former smoker 09/26/2022 GERD (gastroesophageal reflux disease) Hyperlipidemia ([facility]) 04/29/2023 Liver disease Lumbosacral disc disease Memory loss Myocardial infarction ([facility]) Nicotine dependence 04/29/2023 Obesity with body mass index 30 or greater 05/14/2023 BONY (obstructive sleep apnea) Osteoarthritis Panic disorder ([facility]) Personal history of nicotine dependence 04/29/2023 Pneumonia, unspecified organism 04/29/2023 Polyneuropathy, unspecified 04/29/2023 Presence of aortocoronary bypass graft 04/29/2023 Psoriasis Psoriasis, unspecified 05/02/2023 PTSD (post-traumatic stress disorder) ([facility]) Shortness of breath Solitary pulmonary nodule 04/29/2023 Stage 3a chronic kidney disease (HCC) ([facility]) 07/07/2024 Thoracic disc disease Unspecified dementia, mild, without behavioral disturbance, psychotic disturbance, mood disturbance, and anxiety ([facility]) 04/30/2023 Ventricular tachycardia ([facility]) 09/20/2024 Documented on 08/23/2020 Visual impairment Weakness [...] Chronic obstructive pulmonary disease, unspecified COPD type ([facility]) - albuterol HFA 90 mcg/act inhaler; Inhale 2 puffs every 4 (four) hours if needed for wheezing - Eiehgll-Zpvooyxfkob-Elbvlfjzvb (Breztri Aerosphere) 160-9-4.8 MCG/ACT aerosol; Inhale 2 puffs in the morning and 2 puffs before bedtime. Chronic respiratory failure with hypoxia and hypercapnia ([facility]) BONY (obstructive sleep apnea) COPD -- at [...] COPD. Sydnie Guerrero DO documented in this encounterNortheast Missouri Rural Health [id number] History of Present illness Narrative* Myriam Peacock MD - 09/01/2024 11:15 AM EDT Monet Recinos Date of visit: 09/01/2024 Date of : 1960 Age: 64 y.o. Patient Active Problem List Diagnosis NSTEMI (non-ST elevated myocardial infarction) ([facility]) Obesity (BMI 30-39.9) 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 Hyperglycemia Cigarette nicotine dependence in remission Depression Liver disease Visual impairment BONY treated with BiPAP Chronic heart failure with preserved ejection fraction ([facility]) Essential hypertension Hx of hyperlipidemia Former smoker Agoraphobia Anxiety Chipped tooth GERD (gastroesophageal reflux disease) Low back pain Osteoarthritis PTSD (post-traumatic stress disorder) Bipolar 2 disorder, major depressive episode ([facility]) Cannabis use disorder, mild, abuse Major depressive disorder Panic disorder Weakness BMI 40.0-44.9, adult ([facility]) Chronic respiratory failure with hypoxia and hypercapnia ([facility]) Closed wedge compression fracture of T6 vertebra with routine healing Arthritis of left sacroiliac joint Chronic obstructive pulmonary disease, unspecified COPD type ([facility]) Stage 3a chronic kidney disease ([facility]) Allergies Allergen Reactions Penicillins Anaphylaxis Other Reaction(s): [...] mouth in the morning. 90 tablet 3 vwulqmjssa-gacpijcj-gfzkjldzui (BREZTRI AEROSPHERE) 160-9-4.8 mcg/actuation HFA aerosol inhaler [...] states she no longer uses a BIPAP 10/4/23 Bipolar disorder ([facility]) Breast injury CHF (congestive heart failure) ([facility]) Chipped tooth Chronic kidney disease COPD (chronic obstructive pulmonary disease) ([facility]) Coronary artery disease Dementia ([facility]) Depression Diarrhea frequent bouts /involuntary Dizziness Fracture, vertebral, lumbar closed ([facility]) GERD (gastroesophageal reflux disease) Headache History of coronary artery bypass graft 08/14/2020 Liver disease Low back pain Lump or mass in breast Memory loss Myocardial infarction ([facility]) Apr 2009, swith stent placement Obesity BONY treated with BiPAP 07/31/2022 Osteoarthritis Panic disorder Psoriasis PTSD (post-traumatic stress disorder) Pulmonary emboli ([facility]) Rib fracture 09/2023 lt Rotator cuff tear L Shortness of breath Sleep apnea Visual impairment glasses No data recorded No data recorded No data recorded Past Surgical History: Procedure Laterality Date BREAST BIOPSY BREAST CYST EXCISION Cardiac catheterization N/A 01/09/2020 Performed by Yefri Khan MD at [facility] Cardiac catheterization-LV Cors N/A 08/06/2020 Performed by Hazel Painting MD at [facility] SECTION CHOLECYSTECTOMY COLONOSCOPY N/A 04/03/2017 Performed by Jose Beaver MD at [facility] Coronary angiogram and left ventricular gram/pressure N/A 01/09/2020 Performed by Yefri Khan MD at [facility] CORONARY ANGIOPLASTY WITH STENT PLACEMENT CORONARY ARTERY BYPASS GRAFT X4/ THOMPSON/ SVG X3 / RIGHT UPPER LEG OPEN VEIN HARVEST/ LEFT UPPER LEG OPEN VEING HARVEST /GINETTE N/A 08/13/2020 Performed by Leroy Meng MD at [facility] Drug eluting stent left anterior descending N/A 01/09/2020 Performed by Yefri Khan MD at [facility] EXCISION SEROMA LOWER EXTREMITY Left 10/07/2022 Performed by Victor Hugo Vincent DO at [facility] Intravascular ultrasound coronary N/A 08/06/2020 Performed by Hazel Painting MD at [facility] Intravascular ultrasound coronary N/A 01/09/2020 Performed by Yefri Khan MD at [facility] NOTCHARGED/Thrombolysis arterial initial treatment N/A 01/09/2020 Performed by Yefri Khan MD at [facility] TONSILLECTOMY Family History [...] min Stress: No Stress Concern Present (07/25/2023) [employer] - Occupational Stress Questionnaire Feeling of Stress : Only a little Recent Concern: Stress - Stress Concern Present (07/25/2023) [employer] - Occupational Stress Questionnaire Feeling of Stress : Very much Social Connections: Moderately Isolated (07/25/2023) Social Connection and Isolation Panel [NHANES] Frequency of Communication with Friends and Family: Three times a week Frequency of Social Gatherings with Friends and Family: Three times a week Attends Anabaptist Services: More than 4 times per year [...] Referring Physician: Rajni Cardozo DO [address] [place] [address] documented in this [facility]03-21-2025 Miscellaneous Notes* Telephone Encounter - Ching Gay RN - 07/15/2024 8:20 AM EDT Last OV 02/19/24 Last CMP 07/07/24.slm documented in this [facility]03-21-2025 Telephone encounter Note* Telephone Encounter - Ching Gay RN - 07/15/2024 8:20 AM EDT Last OV 02/19/24 Last CMP 07/07/24.slm [facility]03-13-[facility] History of Present illness Narrative* Rajni Cardozo, [...] Chronic obstructive pulmonary disease, unspecified COPD type ([facility]) -COPD GOLD class B -overall stable -continue Breztri 2 puffs b.i.d. with p.r.n. albuterol 3. Stage 3a chronic kidney disease ([facility]) -GFR ranges 44-49 over the past 6 months -renal protective strategies were reviewed with the patient -continue to avoid NSAIDs, gabapentin -repeat electrolytes, kidney function and GFR to assess for improvement or worsening - CBC auto differential; Future - Comprehensive metabolic panel; Future 4. Chronic respiratory failure with hypoxia and hypercapnia ([facility]) -GOLD class B -patient with stationary and portable oxygen at home -I encouraged her to wear the portable oxygen as much as possible. -most desaturations, when she is active, and this is when she needs it the most. 5. Chronic heart failure with preserved ejection fraction ([facility]) -improved -no longer requiring loop diuretic -GDMT includes Jardiance, spironolactone, propanolol [place] 6. Bipolar 2 disorder, major depressive episode ([facility]) -sees Psychiatry on a routine basis -current regimen includes venlafaxine, Lamictal, doxepin, clonazepam, aripiprazole 7. BMI 40.0-44.9, adult ([facility]) -ongoing problem which has worsened due to missing some of her medications -given her overall CV risk, may benefit from initiation of GLP 1 treatment 8. 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 ([facility]) -currently taking atorvastatin 80 mg daily -most [...] 0 11. Arthritis of left sacroiliac joint (CMS-HCC) -overall stable. Has not been to pain [...] Exam Vitals reviewed. Exam conducted with a character impersonator present (Friend/POA). Constitutional: General: She is not [...] in the morning., Disp: 90tablet, Rfl: 3 snbvarchjx-obzrsype-ppxpoxjsmz (BREZTRI AEROSPHERE) 160-9-4.8 mcg/actuation HFA aerosol inhaler, [...] Rajni Cardozo DO., [facility] Office: [phone] documented in this encounterSelect Medical [facility]ty [facility] [place]12-03-2024 History of Present illness Narrative* Rajni Cardozo DO - 03/29/2024 3:15 PM EST IM PROGRESS NOTE Patient - Monet Recinos Age - 63 y.[facility]. - 1960 [facility] - [id number] ASSESSMENT & PLAN Video Visit via Real-time Synchronous Audiovisual Provider [facility] [address] [facility] [address] Patient Location: Patient's home Video Visit Consent [...] that there are some limitations compared to [id number]-lbry evaluations. The patient consented to the presence [...] visit. Physical Exam Exam conducted with a character impersonator present (Friend/POA). Constitutional: General: She is not [...] THE MORNING, Disp: 90 tablet, Rfl: 3 hjeqlsmnav-kenwnonw-xkegdmpehe (BREZTRI AEROSPHERE) 160-9-4.8 mcg/actuation HFA aerosol inhaler, [...] Testing No results found. Rajni Cardozo DO., [facility] Office: [phone] documented in this encounterSelect [facility] [place]12-03-2024 Miscellaneous Notes* Telephone Encounter - Monica Johnston [...] a video visit today documented in this encounterSelect Medical Specialty [facility] [place]12-03-2024 Telephone encounter Note* Telephone Encounter - Monica Johnston CMA - 03/29/2024 9:13 AM EST Pts friend called stated pt is having bursing on her legs for no reason , they would like to know if something to be concerned about or maybe a side effect from the pregabalin ? [facility] [employer] [id number] Telephone encounter Note* Telephone Encounter - Rajni Cardozo DO - 03/29/2024 9:13 AM EST Message noted. What is happening to her legs? [facility] [employer] [id number] Telephone encounter Note* Telephone Encounter - Monica Johnston CMA - 03/29/2024 9:13 AM EST They are brusing , she's not hirting or bumping anything they are just popping up [facility] [employer] [id number] Telephone encounter Note* Telephone Encounter - Rajni Cardozo DO - 03/29/2024 9:13 AM EST Message noted. This is not a side effect from pregabalin. Is she taking aspirin for any reason? [facility] [id number] Telephone encounter Note* Telephone Encounter - Monica Johnston CMA - 03/29/2024 9:13 AM EST She's not taking any aspirin lately bc she's out . She did take some excedrin today . They started about a week ago. [facility] [id number] Telephone encounter Note* Telephone Encounter - Monica Johnston CMA - 03/29/2024 9:13 AM EST She is worried they are blood clots , they just want to know if its something to worry about ? Friend also just stated that she is starting to swelling up again [facility] [employer] [id number] Telephone encounter Note* Telephone Encounter - Rajni Cardozo DO - 03/29/2024 9:13 AM EST Message noted. Hard to say without seeing it. We can put her in a slot tomorrow, or try a video visit today [facility] [id number] History of Present illness Narrative* Sydnie Guerrero [...] for her, however she states that the [facility] would not accept his testing. She is [...] tablet Take 80 mg by mouth Daily Orsnjzj-Pvwibvsydyc-Llxgpxxwae (Breztri Aerosphere) 160-9-4.8 MCG/ACT aerosol Inhale calcitonin, [...] visit. Past Medical History: Diagnosis Date Agoraphobia ([facility]) Angina at rest ([facility]) Anxiety BiPAP (biphasic positive airway pressure) dependence Bipolar disorder ([facility]) Breast injury CAD (coronary artery disease) ([facility]) Cervical disc disorder Chronic kidney disease Cigarette nicotine dependence in remission 10/16/2020 Congestive heart failure (CHF) ([facility]) COPD (chronic obstructive pulmonary disease) ([facility]) COVID-19 04/29/2023 Dementia ([facility]) Dependence on other enabling machines and devices 04/29/2023 Depression ([facility]) Difficulty in walking, not elsewhere classified 04/28/2023 Former smoker 09/26/2022 GERD (gastroesophageal reflux disease) Liver disease Lumbosacral disc disease Memory loss Myocardial infarction ([facility]) BONY (obstructive sleep apnea) Osteoarthritis Panic disorder ([facility]) Personal history of nicotine dependence 04/29/2023 Pneumonia, unspecified organism 04/29/2023 Polyneuropathy, unspecified 04/29/2023 Presence of aortocoronary bypass graft 04/29/2023 Psoriasis ([facility]) Psoriasis, unspecified ([facility]) 05/02/2023 PTSD (post-traumatic stress disorder) ([facility]) Shortness of breath Solitary pulmonary nodule 04/29/2023 Thoracic disc disease Unspecified dementia, mild, without behavioral disturbance, psychotic disturbance, mood disturbance, and anxiety ([facility]) 04/30/2023 Visual impairment Weakness 05/28/2023 Past Surgical [...] send a script for a POC to [facility] today. Tobacco use -- she does continue to smoke on a daily basis. She is currently at a half pack or less. We did have a 4 minute discussion regarding the importance of smoking cessation at today's office visit. Follow up in about 3 months (around 06/17/2024) for COPD, in [place] office. Sydnie Guerrero DO documented in this encounterNortheast Missouri Rural Health [id number] History of Present illness Narrative* Rajni Cardozo [...] 0 3. Stage 3a chronic kidney disease ([facility]) -GFR ranges from 36 to 53 over the past year. -renal protective strategies were reviewed with patient, in particular avoidance of NSAIDs and Welch 2 inhibitors -we are evaluating and reducing or eliminating all prescription medications which could affect the kidney -continue to monitor. ACR ordered today - CBC auto differential; Future 4. Chronic heart failure with preserved ejection fraction ([facility]) -GDMT: Jardiance 10 mg daily, propanolol 80 mg daily, spironolactone 25 mg daily, torsemide. -continue home oxygen 5. 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 ([facility]) -currently atorvastatin 80 mg daily -repeat lipids [...] Exam Vitals reviewed. Exam conducted with a character impersonator present (Friend/POA). Constitutional: General: She is not [...] THE MORNING, Disp: 90 tablet, Rfl: 3 xaaymztklf-njrxzmvs-rlqjhlcghf (BREZTRI AEROSPHERE) 160-9-4.8 mcg/actuation HFA aerosol inhaler, [...] on 12/17/2023 11:39 AM Rajni Cardozo DO., [facility] Office: [phone] documented in this encounterSelect [facility]10-28-2024 Miscellaneous Notes* Telephone Encounter - Monica Johnston [...] EDT Message noted. Yes documented in this [facility]10-28-2024 Telephone encounter Note* Telephone Encounter - Monica Johnston CMA - 02/22/2024 12:27 PM EDT Pts' friend norma called was wondering what you were going to do with the pregabalin there were no refills , pt stated the gabapentin worked better but needed to know if you were going to refill the pregabalin or in crease the dosage ? [facility] Telephone encounter Note* Telephone Encounter - Rajni Cardozo DO - 02/22/2024 12:27 PM EDT Message noted. Needs a recheck appointment to discuss [facility]10[facility]28-2024 Telephone encounter Note* Telephone Encounter - Cathleen Arreola - 02/22/2024 12:27 PM EDT Comes in 03/07 is that okay? [facility]10-28-2024 Telephone encounter Note* Telephone Encounter - Rajni Cardozo DO - 02/22/2024 12:27 PM EDT Message noted. Yes [facility]10-25-2024 History of Present illness Narrative* Saqib Giles MD - 02/19/2024 10:45 AM EDT Monet Recinos Date of visit: 02/19/2024 Date of : 1960 Age: 63 y.o. Patient Active Problem List Diagnosis NSTEMI (non-ST elevated myocardial infarction) ([facility]) Obesity (BMI 30-39.9) 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 ([facility]) Hyperglycemia Cigarette nicotine dependence in remission Depression Liver disease Visual impairment BONY treated with BiPAP Chronic heart failure with preserved ejection fraction ([facility]) Essential hypertension Hx of hyperlipidemia Former smoker Agoraphobia Anxiety Chipped tooth GERD (gastroesophageal reflux disease) Low back pain Osteoarthritis PTSD (post-traumatic stress disorder) Bipolar 2 disorder, major depressive episode ([facility]) Cannabis use disorder, mild, abuse Major depressive disorder Panic disorder Weakness BMI 40.0-44.9, adult ([facility]) Chronic respiratory failure with hypoxia and hypercapnia ([facility]) Acute pulmonary embolism without acute cor pulmonale, unspecified pulmonary embolism type ([facility]) Closed wedge compression fracture of T6 vertebra [...] MOUTH IN THE MORNING 90 tablet 3 hcmdrztvfs-fddzfubi-euhfxfcrdz (BREZTRI AEROSPHERE) 160-9-4.8 mcg/actuation HFA aerosol inhaler [...] History: Diagnosis Date Agoraphobia Angina at rest ([facility]) Anxiety BiPAP (biphasic positive airway pressure) dependence Patient states she no longer uses a BIPAP 01/28/23 Bipolar disorder ([facility]) Breast injury CHF (congestive heart failure) ([facility]) Chipped tooth Chronic kidney disease COPD (chronic obstructive pulmonary disease) ([facility]) Coronary artery disease Dementia ([facility]) Depression Diarrhea frequent bouts /involuntary Dizziness Fracture, vertebral, lumbar closed ([facility]) GERD (gastroesophageal reflux disease) Headache History of coronary artery bypass graft 08/14/2020 Liver disease Low back pain Lump or mass in breast Memory loss Myocardial infarction ([facility]) Apr 2009, swith stent placement Obesity BONY treated with BiPAP 07/31/2022 Osteoarthritis Panic disorder Psoriasis PTSD (post-traumatic stress disorder) Pulmonary emboli ([facility]) Rib fracture 09/2023 lt Rotator cuff tear L Shortness of breath Sleep apnea Visual impairment glasses No data recorded No data recorded No data recorded Past Surgical History: Procedure Laterality Date BREAST BIOPSY BREAST CYST EXCISION Cardiac catheterization N/A 01/09/2020 Performed by Yefri Khan MD at [facility] Cardiac catheterization-LV Cors N/A 08/06/2020 Performed by Hazel Painting MD at [facility] SECTION CHOLECYSTECTOMY COLONOSCOPY N/A 04/03/2017 Performed by Jose Beaver MD at [facility] Coronary angiogram and left ventricular gram/pressure N/A 01/09/2020 Performed by Yefri Khan MD at [facility] CORONARY ANGIOPLASTY WITH STENT PLACEMENT CORONARY ARTERY BYPASS GRAFT X4/ THOMPSON/ SVG X3 / RIGHT UPPER LEG OPEN VEIN HARVEST/ LEFT UPPER LEG OPEN VEING HARVEST /GINETTE N/A 08/13/2020 Performed by Leroy Meng MD at [facility] Drug eluting stent left anterior descending N/A 01/09/2020 Performed by Yefri Khan MD at [facility] EXCISION SEROMA LOWER EXTREMITY Left 10/07/2022 Performed by Victor Hugo Vincent DO at [facility] Intravascular ultrasound coronary N/A 08/06/2020 Performed by Hazel Painting MD at [facility] Intravascular ultrasound coronary N/A 01/09/2020 Performed by Yefri Khan MD at [facility] NOTCHARGED/Thrombolysis arterial initial treatment N/A 01/09/2020 Performed by Yefri Khan MD at [facility] TONSILLECTOMY Family History [...] min Stress: No Stress Concern Present (07/25/2023) [employer] - Occupational Stress Questionnaire Feeling of Stress : Only a little Recent Concern: Stress - Stress Concern Present (07/25/2023) [employer] - Occupational Stress Questionnaire Feeling of Stress : Very much Social Connections: Moderately Isolated (07/25/2023) Social Connection and Isolation Panel [NHANES] Frequency of Communication with Friends and Family: Three times a week Frequency of Social Gatherings with Friends and Family: Three times a week Attends Anabaptist Services: More than 4 times per year [...] Referring Physician: Rajni Cardozo DO [address] [place] [address] documented in this encounterSelect Medical Specialty Hospital [facility]10-24-2024 Miscellaneous Notes* Telephone Encounter - Vicki Bailey CMA - 02/18/2024 9:30 AM EDT Called patient to remind them to bring their most current copy of their medication list with them to their appt. Patient verbalizes understanding. documented in this encounterSelect Medical Specialty Hospital [facility] [place]10-24-2024 Telephone encounter Note* Telephone Encounter - Vicki Bailey CMA - 02/18/2024 9:30 AM EDT Called patient to remind them to bring their most current copy of their medication list with them to their appt. Patient verbalizes understanding. [employer]10-15-2024 History of Present illness Narrative* Eusebia Huertas, [...] nerve blocks in the past. Last saw [facility] pain clinic 09/2022, PT and aquatic therapy ordered , also RX for zanaflex. Prior treatment: pain clinic [facility] 09/2022, [facility] ER 08/27, MRI T-spine 09/10/23, calcitonin NS, norco, Lumbar MRI [facility] 11/27/22, LT ST Trigger point injx 12/29/23, [...] tablet Take 80 mg by mouth Daily Vojfxft-Uckoyaqfpea-Zzqltlwfco (Breztri Aerosphere) 160-9-4.8 MCG/ACT aerosol Inhale calcitonin, [...] HISTORY: Past Medical History: Diagnosis Date Agoraphobia ([facility]) Angina at rest ([facility]) Anxiety BiPAP (biphasic positive airway pressure) dependence Bipolar disorder ([facility]) Breast injury CAD (coronary artery disease) ([facility]) Cervical disc disorder Chronic kidney disease Congestive heart failure (CHF) ([facility]) COPD (chronic obstructive pulmonary disease) ([facility]) Dementia ([facility]) Depression ([facility]) GERD (gastroesophageal reflux disease) Liver disease Lumbosacral disc disease Memory loss Myocardial infarction ([facility]) BONY (obstructive sleep apnea) Osteoarthritis Panic disorder ([facility]) Psoriasis ([facility]) PTSD (post-traumatic stress disorder) ([facility]) Shortness of breath Thoracic disc disease Visual [...] Dr. Huertas/guido Huertas D.O. documented in this encounterNortheast Missouri Rural Health [id number] Miscellaneous Notes* Telephone Encounter - Fior Scott CMA - 02/03/2024 3:42 PM EDT Requesting a referral to a new pairer substandard and said she would explain when we c all back. I called back and got no answer and mailbox is full. * Telephone Encounter - Monica Johnston CMA - 02/03/2024 3:42 PM EDT Pt called back stated she really needs a referral for a new pairer substandard * Telephone Encounter - Rajni Cardozo DO - 02/03/2024 3:42 PM EDT Message noted. Please try again. We need to know which pairer substandard is on her insurance plan in order to make a referral. * Telephone Encounter - Cathleen Arreola - 02/03/2024 3:42 PM EDT LM on VM * Telephone Encounter - Sofya Coe CMA - 02/03/2024 3:42 PM EDT Patient's family called back and they need a referral to Dr. Guerrero [id number] [place], [place] * Telephone Encounter - Rajni Cardozo DO - 02/03/2024 3:42 PM EDT Message noted. The referral was sent today. She can call and schedule at any time. * Telephone Encounter - Cathleen Arreola - 02/03/2024 3:42 PM EDT Referral sent documented in this encounterSelect Medical Specialty Hospital [facility] [place]10-09-2024 Telephone encounter Note* Telephone Encounter - Fior Scott CMA - 02/03/2024 3:42 PM EDT Requesting a referral to a new pairer substandard and said she would explain when we c all back. I called back and got no answer and mailbox is full. [facility]10-09-2024 Telephone encounter Note* Telephone Encounter - Monica Johnston CMA - 02/03/2024 3:42 PM EDT Pt called back stated she really needs a referral for a new pairer substandard [facility]10-09-2024 Telephone encounter Note* Telephone Encounter - Rajni Cardozo DO - 02/03/2024 3:42 PM EDT Message noted. Please try again. We need to know which pairer substandard is on her insurance plan in order to make a referral. [facility]10-09-2024 Telephone encounter Note* Telephone Encounter - Cathleen Arreola - 02/03/2024 3:42 PM EDT LM on VM [facility]10-09-2024 Telephone encounter Note* Telephone Encounter - Sofya Coe CMA - 02/03/2024 3:42 PM EDT Patient's family called back and they need a referral to Dr. [address] [place], [place] [facility]10-09-2024 Telephone encounter Note* Telephone Encounter - Rajni Cardozo DO - 02/03/2024 3:42 PM EDT Message noted. The referral was sent today. She can call and schedule at any time. [facility]10-09-2024 Telephone encounter Note* Telephone Encounter - Cathleen Arreola - 02/03/2024 3:42 PM EDT Referral sent [facility]10-07-2024 Miscellaneous Notes* Telephone Encounter - Vandana Resendiz - 02/01/2024 9:49 AM EDT Patient called and said that she needs office to send POC to [facility] for her oxygen therapy. Can Line Operator let patient know that SE is not the one who wrote the order for the Oxygen therapy and that it was her primary care provider. [facility] [...] Vandana Resendiz - 02/01/2024 9:49 AM EDT Can Line Operator called patient in regards earlier call and left voicemail to return call to office for information about her oxygen therapy order. Office phone number provided. documented in this encounterSelect Medical Specialty Hospital [facility] [place]10-07-2024 Telephone encounter Note* Telephone Encounter - Vandana Resendiz - 02/01/2024 9:49 AM EDT Patient called and said that she needs office to send POC to [facility] for her oxygen therapy. Can Line Operator let patient know that SE is not the one who wrote the order for the Oxygen therapy and that it was her primary care provider. [facility] that she had to have her oxygen therapy orders through pulmonary provider. Please Advise [facility] [id number] Telephone encounter Note* Telephone Encounter - Shari Garcia RN - 02/01/2024 9:[address] Cardozo, PCP office ordered oxygen for nocturnal only. DME will not provide POC for patient with order for nocturnal oxygen only. Second, PCP office can sign oxygen therapy orders as they were the ones that ordered it. Any physician. Not just pulmonary. Please call patient and update. [facility] [id number] Telephone encounter Note* Telephone Encounter - Vandana Resendiz - 02/01/2024 9:49 AM EDT Can Line Operator called patient in regards earlier call and left voicemail to return call to office for information about her oxygen therapy order. Office phone number provided. [facility]10-01-2024 History of Present illness Narrative* Eusebia Obregon Aleksandar, - 01/26/2024 1:00 PM EDTAssociated Order(s): L [...] years ago, injections, Dr Castro, IBU, TYL, biofrsurya, jud cortez, la nena MEDICATION: Current Outpatient [...] tablet Take 80 mg by mouth Daily Mzprfan-Mhnpjwyojjj-Wgozeowtzk (Breztri Aerosphere) 160-9-4.8 MCG/ACT aerosol Inhale calcitonin, [...] Diagnosis Date Agoraphobia (CMS/HCC) Angina at rest ([facility]/HCC) Anxiety BiPAP (biphasic positive airway pressure) dependence Bipolar disorder (CMS/HCC) Breast injury CAD (coronary artery disease) (CMS/HCC) Cervical disc disorder Chronic kidney disease Congestive heart failure (CHF) (CMS/HCC) COPD (chronic obstructive pulmonary disease) (CMS/HCC) Dementia (CMS/HCC) Depression (CMS/HCC) GERD (gastroesophageal reflux disease) Liver disease Lumbosacral disc disease Memory loss Myocardial infarction ([facility]/HCC) BONY (obstructive sleep apnea) Osteoarthritis Panic [...] Dr. Huertas/guido Huertas D.O. documented in this encounterBeverly Ville [id number] Miscellaneous Notes* Telephone Encounter - Yadira Barrera RN - 01/20/2024 11:13 AM EDT Previous refill was set to no print New rx pended to pool for signature. Last ov 03/31/2023 Upcoming ov on 02/19/2024 Labs 12/17/2023 documented in this encounterSelect Medical Specialty Hospital [facility] [place]09-25-2024 Telephone encounter Note* Telephone Encounter - Yadira Barrera RN - 01/20/2024 11:13 AM EDT Previous refill was set to no print New rx pended to pool for signature. Last ov 03/31/2023 Upcoming ov on 02/19/2024 Labs 12/17/2023 [facility]-24-2024 Miscellaneous Notes* Telephone Encounter - Anabela Cueva CMA - 01/19/2024 9:09 AM EDT LM to call back and RS appt from today documented in this encounterSelect Medical Specialty Hospital - [place]09-24-2024 Telephone encounter Note* Telephone Encounter - Anabela Cueva CMA - 01/19/2024 9:09 AM EDT LM to call back and RS appt from today [facility]09-24-2024 Miscellaneous Notes* Telephone Encounter - Anabela Cueva CMA - 01/19/2024 8:40 AM EDT Message is left for patient to call back and reschedule her appt for today. documented in this encounterSelect Medical Specialty Hospital - [place]09-24-2024 Telephone encounter Note* Telephone Encounter - Anabela Cueva CMA - 01/19/2024 8:40 AM EDT Message is left for patient to call back and reschedule her appt for today. [facility]09-23-2024 Miscellaneous Notes* Telephone Encounter - Vicki Bailey CMA - 01/18/2024 10:32 AM EDT Called patient to remind them to bring their most current copy of their medication list with them to their appt. Patient verbalizes understanding. documented in this encounterSelect Medical Specialty [facility] [place]09-23-2024 Telephone encounter Note* Telephone Encounter - Vicki Bailey CMA - 01/18/2024 10:32 AM EDT Called patient to remind them to bring their most current copy of their medication list with them to their appt. Patient verbalizes understanding. [facility]09-23-2024 Miscellaneous Notes* Telephone Encounter - Caitie Cabello RN - 01/18/2024 9:06 AM EDT 03/31/23 ov with upcoming appt 01/19/24 01/04/24 BMP PC from pt needing refill documented in this encounterSelect Medical Specialty Hospital [facility] [place]09-23-2024 Telephone encounter Note* Telephone Encounter - Caitie Cabello RN - 01/18/2024 9:06 AM EDT 03/31/23 ov with upcoming appt 01/19/24 01/04/24 BMP PC from pt needing refill [facility]09-17-2024 History of Present illness Narrative* Eusebia Huertas, [...] nerve blocks in the past. Last saw [facility] painclinic 09/2022, PT and aquatic therapy ordered , also RX for zanaflex. Prior treatment: pain clinic [facility] 09/2022, [facility] ER 08/27, MRI T-spine 09/10/23, calcitonin NS, norco, Lumbar MRI [facility] 11/27/22, LT ST Trigger point injx 12/29/23 [...] tablet Take 80 mg by mouth Daily Uylbzmn-Uncixzzmmtt-Atfmstibzg (Breztri Aerosphere) 160-9-4.8 MCG/ACT aerosol Inhale calcitonin, [...] HISTORY: Past Medical History: Diagnosis Date Agoraphobia ([facility]/HCC) Angina at rest ([facility]/HCC) Anxiety BiPAP (biphasic positive airway pressure) dependence Bipolar disorder ([facility]/HCC) Breast injury CAD (coronary artery disease) ([facility]/HCC) Chronic kidney disease Congestive heart failure (CHF) ([facility]/HCC) COPD (chronic obstructive pulmonary disease) ([facility]/HCC) Dementia ([facility]/HCC) Depression ([facility]/HCC) GERD (gastroesophageal reflux disease) Liver disease Memory loss Myocardial infarction ([facility]/HCC) BONY (obstructive sleep apnea) Osteoarthritis Panic disorder ([facility]/HCC) Psoriasis ([facility]/HCC) PTSD (post-traumatic stress disorder) ([facility]) Shortness of breath Visual impairment ALLERGIES: Allergies [...] Dr. Huertas/guido Huertas D.O. documented in this encounterNortheast Missouri Rural Health [id number] Miscellaneous Notes* Telephone Encounter - Sofya Coe CMA - 01/07/2024 8:21 AM EDT From Rajni Cardozo DO To Monet Recinos Sent and Delivered 01/04/2024 9:12 PM Your kidney and potassium levels are stable from previous No changes today Left this message on her confidential voice mail documented in this encounterSelect Medical Specialty [facility] [place]09-12-2024 Telephone encounter Note* Telephone Encounter - Sofya Coe CMA - 01/07/2024 8:21 AM EDT From Rajni Cardozo DO To JorjeMonet Sent and Delivered 01/04/2024 9:12 PM Your kidney and potassium levels are stable from previous No changes today Left this message on her confidential voice mail [facility] [id number] History of Present illness Narrative* Rajni Cardozo DO - 01/04/2024 1:00 PM EDT IM PROGRESS NOTE Patient - Monet Recinos Age - 63 y.o. - 1960 ASSESSMENT & PLAN 1. Chronic respiratory failure with hypoxia and hypercapnia ([facility]-HCC) - currently has portable oxygen unit [...] Exam Vitals reviewed. Exam conducted with a character impersonator present (Friend/POA). Constitutional: General: She is not [...] THE MORNING, Disp: 90 tablet, Rfl: 3 qfrfpeecba-ylnxzsac-xbaelklxds (BREZTRI AEROSPHERE) 160-9-4.8 mcg/actuation HFA aerosol inhaler, [...] Detected Not Detected^Not Detected Final Specific gravity [facility] 12/17/2023 1.015 1.003 - 1.035 Final Leukocyte esterase [facility] 12/17/2023 Negative Negative^Negative Final Nitrite [facility] 12/17/2023 Negative Negative^Negative Final Ph 12/17/2023 6.0 5.0 - 8.5 Final Protein [facility] 12/17/2023 Negative Negative^Negative mg/dL Final Urine glucose [facility] 12/17/2023 250 (A) Negative^Negative mg/dL Final Ketones [facility] 12/17/2023 Negative Negative^Negative mg/dL Final Urobilinogen [facility] 12/17/2023 0.2 <1.1 eu/dL Final Bilirubin [facility] 12/17/2023 Negative Negative^Negative Final Hemoglobin [facility] 12/17/2023 Negative Negative^Negative Final Other Testing X-ray [...] on 10/20/2023 8:22 PM Rajni Cardozo DO., [facility] Office: [phone] documented in this encounterSelect Medical Specialty [facility] [place]09-04-2024 Miscellaneous Notes* Telephone Encounter - Monica Johnston CMA - 12/30/2023 4:51 PM EDT Pts friend called stated pt needs an order for o2 sent to [employer] fax # [phone] * Telephone Encounter - Rajni Cardozo DO - 12/30/2023 4:51 PM EDT Message noted. Order was written and faxed to [employer] today * Telephone Encounter - Monica Johnston CMA - 12/30/2023 4:51 PM EDT Ok thank you documented in this encounterSelect Medical Specialty [facility]09-04-2024 Telephone encounter Note* Telephone Encounter - Monica Johnston CMA - 12/30/2023 4:51 PM EDT Pts friend called stated pt needs an order for o2 sent to [employer] fax # [phone] [facility]-04-2024 Telephone encounter Note* Telephone Encounter - Rajni Cardozo DO - 12/30/2023 4:51 PM EDT Message noted. Order was written and faxed to [employer] today [facility] [employer] [id number] Telephone encounter Note* Telephone Encounter - Monica Johnston CMA - 12/30/2023 4:51 PM EDT Ok thank you [facility] [employer] [id number] History of Present illness Narrative* Eusebia Huertas DO - 12/29/2023 10:45 AM EDTAssociated Order(s): Trigger Point Injection (CPT 09892 or [address]5725): left gluteus tej Post-Procedure Diagnose(s): Trigger point of left side of body Images from the original note were not included. HISTORY OF PRESENT ILLNESS: Monet Recinos is an 63 y.o. @ female. Chief complaint Thoracic pain Thoracic: Intermittent back pain over the years with flare up thoracic pain 4 months ago (08/24/23) after [place] in [place] [employer] Tx at [facility] ER 08/27 with back pain, DX with compression FX T6 and PE-started on eliquis. Follow up with Dr Cardozo, calcitonin and norco RX. MRI T-spine done at [facility] 09/10/23. She notes pain in thoracic spine is much improved. She is walking unassisted today. She uses walkeras needed. She is complaining of LT sided low back pain x 2-3 weeks. Taking TYL/IBU, no relief. Denies injury.Pain with sit to stand. Pain at HS. Denies radiation. Denies N/T. Injections and nerve blocks yearsago many years ago. Prior treatment: pain clinic years ago, [facility] ER /3, MRI T-spine 09/10/23, calcitonin NS, [...] tablet Take 80 mg by mouth Daily Dkqrdkg-Oazqgrkrqdr-Vdcujgnpmw (Breztri Aerosphere) 160-9-4.8 MCG/ACT aerosol Inhale calcitonin, [...] HISTORY: Past Medical History: Diagnosis Date Agoraphobia ([facility]) Angina at rest ([facility]) Anxiety BiPAP (biphasic positive airway pressure) dependence Bipolar disorder ([facility]) Breast injury CAD (coronary artery disease) ([facility]) Chronic kidney disease Congestive heart failure (CHF) ([facility]) COPD (chronic obstructive pulmonary disease) ([facility]) Dementia ([facility]) Depression ([facility]) GERD (gastroesophageal reflux disease) Liver disease Memory loss Myocardial infarction ([facility]) BONY (obstructive sleep apnea) Osteoarthritis Panic disorder ([facility]) Psoriasis ([facility]) PTSD (post-traumatic stress disorder) ([facility]) Shortness of breath Visual impairment ALLERGIES: Allergies [...] of body M79.10 Trigger Point Injection (CPT 98244 or 90689): left gluteus tej 2. Compression fracture of T6 vertebra with routine healing, subsequent encounter S22.050D XR spine 3. Compression fracture of T8 vertebra with routine healing, subsequent encounter S22.060D 4. Osteoporotic compression fracture of vertebra with routine healing, subsequent encounter M80.88XD Trigger Point Injection (CPT 31074 [place] 49554): left gluteus tej on 12/29/2023 2:58 PM [...] Dr. Huertas/guido Huertas D.O. documented in this encounterNortheast Missouri Rural Health [id number] Miscellaneous Notes* Telephone Encounter - Monica Johnston [...] for [employer] , pts insurnace doesn't cover [employer]. So they have to send everything back [...] She gave me the phone number to [employer]: . Please call them to have them either fax us a O2 equipment order for me to complete, or get their fax number so I can send a new order for the oxygen equipment * Telephone Encounter - Tosin Reyes CMA - 12/24/2023 4:07 PM EDT There are 2 different number to contact for her. The CPAP is [phone] but they emailed me what they need for referral process. The oxygen is through [facility] through [facility] and left them a message to fax something for the referral. * Telephone Encounter - Rajni Cardozo DO - 12/24/2023 4:07 PM EDT Message noted. The CPAP number does not concern me, that is for the sleep clinic to handle However, I still have not received anything from [employer] documented in this encounterRutland Regional Medical CenterUpower [id number] Telephone encounter Note* Telephone Encounter - Monica [...] said long story theyneed an order for [employer] , pts insurnace doesn't cover [employer]. So they have to send everything back [employer]08-29-2024 Telephone encounter Note* Telephone Encounter - Rajni [...] She gave me the phone number to [employer]: . Please call them to have them either fax us a O2 equipment order for me to complete, or get their fax number so I can send a new order for the oxygen equipment [employer]08-29-2024 Telephone encounter Note* Telephone Encounter - Tosin Reyes CMA - 12/24/2023 4:07 PM EDT There are 2 different number to contact for her. The CPAP is [phone] but they emailed me what they need for referral process. The oxygen is through [facility] through [employer] and left them a message to fax something for the referral. [employer]08-29-2024 Telephone encounter Note* Telephone Encounter - Rajni Cardozo DO - 12/24/2023 4:07 PM EDT Message noted. The CPAP number does not concern me, that is for the sleep clinic to handle However, I still have not received anything from [employer] [facility]-22-2024 Miscellaneous Notes* Telephone Encounter - Johnna Cortes - 12/17/2023 10:37 AM EDT Received call from Tung at sleep lab that [facility] called there stating pt does not qualify for thecontinuous Oxygen to be bled in with PAP. Will set up with PAP only. Per Dr Meadows, pt's February appt needs to be moved up for new face to face and repeat home O2 eval. Routed to Maryellen to schedule.Spoke to Concepcion at [facility] to inform will be retesting pt in order to try to qualify her for the oxygen. * Telephone Encounter - GLORIA Scott - 12/17/2023 10:37 AM EDT Kymberly called patient and moved patient's from February to 01/14/2024 at 3pm with SE in the [place] office. * Telephone Encounter - Johnna Cortes - 12/17/2023 10:37 AM EDT Thanks documented in this encounterSelect Medical Specialty [facility] [place]08-22-2024 Miscellaneous Notes* Telephone Encounter - Tosin Reyes CMA - 12/17/2023 10:37 AM EDT Patient called and O2 dropped to 70's overnight and now she can barely keep it up to 90. I directedher to the ER. * Telephone Encounter - Rajni Cardozo DO - 12/17/2023 10:37 AM EDT Message noted. I agree documented in this encounterSelect Medical [facility]-22-[facility]24 Telephone encounter Note* Telephone Encounter - Johnna Cortes - 12/17/2023 10:37 AM EDT Received call from Tung at sleep lab that [facility] called there stating pt does not qualify for thecontinuous Oxygen to be bled in with PAP. Will set up with PAP only. Per Dr Meadows, pt's November appt needs to be moved up for new face to face and repeat home O2 eval. Routed to [place] to schedule.Spoke to Concepcion at [facility] to inform will be retesting pt in order to try to qualify her for the oxygen. [facility]08-[facility] Telephone encounter Note* Telephone Encounter - GLORIA Scott - 12/17/2023 10:37 AM EDT Kymberly called patient and moved patient's from February to 01/14/2024 at 3pm with SE in the [place] office. [facility]08-22-2024 Telephone encounter Note* Telephone Encounter - Johnna Cortes - 12/17/2023 10:37 AM EDT Thanks [facility]08-22-2024 Telephone encounter Note* Telephone Encounter - Tosin Reyes CMA - 12/17/2023 10:37 AM EDT Patient called and O2 dropped to 70's overnight and now she can barely keep it up to 90. I directedher to the ER. [facility]08-22-2024 Telephone encounter Note* Telephone Encounter - Rajni Cardozo DO - 12/17/2023 10:37 AM EDT Message noted. I agree [facility]08-20-2024 Miscellaneous Notes* Telephone Encounter - Johnna Cortes - 12/15/2023 1:43 PM EDT Message received from Vicki at [facility] that OON for PAP/ O2. Pt must use [employer] (fax number is location specific). Spoke to Ciarra at [facility] and for pt zip, she must use [place] location. Faxed all info to [phone] for setup with BiPAP and O2. Pt notified via phone/ my chart message also sent. Phnumber of [phone] also given to pt. documented in this encounterSelect Medical [facility]ty [facility] [place]08-20-2024 Telephone encounter Note* Telephone Encounter - Johnna Cortes - 12/15/2023 1:43 PM EDT Message received from Vicki at [facility] that OON for PAP/ O2. Pt must use [employer] (fax number is location specific). Spoke to Ciarra at [facility] and for pt zip, she must use [place] location. Faxed all info to [phone] for setup with BiPAP and O2. Pt notified via phone/ my chart message also sent. Phnumber of [phone] also given to pt. [facility]08-15-2024 Miscellaneous Notes* Telephone Encounter - Kaia Jovel MD - 12/10/2023 10:23 AM EDT Patient of Dr. Meadows, BiPAP 14/9 cm of water with 3L/min supplement oxygen recommended, order formcomplete in [facility], please fax Results note sent to patient Titration study on 12/08/2023 (Aoapot=570.0 lbs; BMI=35.3 kg/m2) DIAGNOSIS: Obstructive Sleep Apnea [...] on a wedge cushion. documented in this encounterSelect Medical Specialty [facility] [place]08-15-2024 Telephone encounter Note* Telephone Encounter - Kaia Jovel MD - 12/10/2023 10:23 AM EDT Patient of Dr. Meadows, BiPAP 14/9 cm of water with 3L/min supplement oxygen recommended, order formcomplete in [employer], please fax Results note sent to patient Titration study on 12/08/2023 (Qxxbuu=628.0 lbs; BMI=35.3 kg/m2) DIAGNOSIS: Obstructive Sleep Apnea [...] elevated such as on a wedge cushion. [employer] Work Phone: 1(357) 436-714607-25-2024 Miscellaneous Notes* Telephone Encounter - Tosin Reyes [...] PM EDT Patient notified documented in this encounterSelect Medical [facility]ty [facility]07-25-2024 Telephone encounter Note* Telephone Encounter - Tosin Reyes CMA - 11/19/2023 4:56 PM EDT Patient has been getting shoulder injections thru Dr. Castro and now they are asking for a referral toortho. [facility] Telephone encounter Note* Telephone Encounter - Rajni Cardozo DO - 11/19/2023 4:56 PM EDT Message noted. Who is looking for the referral? If she is already getting injections, why does she need a new referral? [facility] Telephone encounter Note* Telephone Encounter - Tosin Reyes CMA - 11/19/2023 4:56 PM EDT She has switched insurance and so they need a referral to Dr. Castro. [facility] Telephone encounter Note* Telephone Encounter - Rajni Cardozo DO - 11/19/2023 4:56 PM EDT Message noted. I do not know what or why she is getting the injections for. I have not received any reports or feedback from Dr. Castro, therefore I am unable to make a referral. [facility] [id number] Telephone encounter Note* Telephone Encounter - Tosin Reyes CMA - 11/19/2023 4:56 PM EDT Patient notified [employer]07-08-2024 History of Present illness Narrative* Rajni Cardozo DO - 11/02/2023 3:30 PM EDT IM PROGRESS NOTE Patient - Monet Recinos Age - 63 y.[facility]. - 1960 [facility] - [id number] ASSESSMENT & PLAN 1. Venous insufficiency of both lower extremities -secondary to chronic diastolic heart failure, in conjunction with extended dependent positioning of the legs -is on maximum dose diuretics with torsemide 80-120 mg daily -at this time I advised the patient to elevate her legs 30-40 minutes every morning and afternoon, as well as at nighttime -will order zippered compression stockings through [employer] to allow her to be more independent [...] cor pulmonale, unspecified pulmonary embolism type (CMS-HCC) -has completed 2/3 months of anticoagulation -may [...] 3 times a day. No longer taking Hubbardston. Did see Orthopedic surgery in follow-up, and [...] Exam Vitals reviewed. Exam conducted with a character impersonator present (Friend/POA). Constitutional: General: She is not [...] THE MORNING, Disp: 90 tablet, Rfl: 3 fntweefvam-qofvzdug-ngamskrefa (BREZTRI AEROSPHERE) 160-9-4.8 mcg/actuation HFA aerosol inhaler, [...] on 09/19/2023 12:42 AM Rajni Cardozo DO., [facility] Office: [phone] documented in this encounterSelect Medical [facility]ty [facility] [place]07-05-2024 Miscellaneous Notes* Telephone Encounter - Nuha Nichole RN - 10/30/2023 7:30 AM EDT OV 08/03/23 BMP 09/30/23 documented in this encounterSelect Medical Specialty [facility] [place]07-05-2024 Telephone encounter Note* Telephone Encounter - Nuha Nichole RN - 10/30/2023 7:30 AM EDT OV 08/03/23 BMP 09/30/23 [facility]06-12-2024 Miscellaneous Notes* Telephone Encounter - Daisha Marquez CMA - 10/07/2023 3:08 PM EDT ----- Message from Victor Hugo Vincent DO sent at 10/06/2023 11:58 AM EDT ----- Call and let her know that her ultrasound and mammogram were normal. If she still has problems she should come back to see me. ThanksDr. Cornell documented in this [facility]06-12-2024 Telephone encounter Note* Telephone Encounter - Daisha Marquez CMA - 10/07/2023 3:08 PM EDT ----- Message from Victor Hugo Vincent DO sent at 10/06/2023 11:58 AM EDT ----- Call and let her know that her ultrasound and mammogram were normal. If she still has problems she should come back to see me. Dr. Kraig Gustafson [facility]06-07-2024 Miscellaneous Notes* Telephone Encounter - Nuha Nichole RN - 10/02/2023 12:38 AM EDT OV 08/03/23 BMP 09/30/23 documented in this encounterSelect Medical Specialty [facility] [place]06-07-2024 Telephone encounter Note* Telephone Encounter - Nuha Nichole RN - 10/02/2023 12:38 AM EDT OV 08/03/23 BMP 09/30/23 [facility]06-[facility] History of Present illness Narrative* Rajni Cardozo, - 09/30/2023 1:30 PM EDT IM PROGRESS NOTE Patient - Monet Recinos Age - 63 y.o. - 1960 ASSESSMENT & PLAN 1. Closed wedge compression fracture of T6 vertebra with routine healing -reviewed orthopedic consult note with the patient, along with recommendations and goals of treatment -patient advised she cannot use ibuprofen, or any NSAID at the current time for her pain because ofher anticoagulation. -therefore, we will continue the Hubbardston 5-325 b.i.d. pain relief longer than anticipated [...] Chronic respiratory failure with hypoxia and hypercapnia ([facility]) -continue oxygen support nocturnally and during the day as needed -continue Breztri 2 daily - CBC auto differential; Future 5. Chronic heart failure with preserved ejection fraction ([facility]) -current GDMT includes Jardiance 10 mg [...] taking salmon calcitonin nasal spray, cyclobenzaprine, and Hubbardston 5-325 b.i.d. the pain is improved from initial, but still present on a dailybasis associated with leaning against her back, or prolonged walking or standing. She was seen by Orthopedic surgery regarding cough, but continued conservative treatment was recommended especially in light her current anticoagulation status. She is taking 3581-3419 mg ibuprofen daily try and help her [...] Exam Vitals reviewed. Exam conducted with a character impersonator present (Friend/POA). Constitutional: General: She is not [...] THE MORNING, Disp: 90 tablet, Rfl: 3 cxigdsukpd-cohvaywh-fnqaoehuvy (BREZTRI AEROSPHERE) 160-9-4.8 mcg/actuation HFA aerosol inhaler, [...] no acute findings, and the mediastinum and satanm are grossly negative . Impression: 1. No [...] on 07/24/2023 10:05 PM Rajni Cardozo DO., [facility] Office: [phone] documented in this encounterSelect Medical Specialty [facility] [place]05-30-2024 History of Present illness Narrative* Kacey Odonnellumair, OUTBOARD MOTOR TESTER-ENERGY AUDITOR - 09/24/2023 11:00 AM EDT Subjective Patient [...] nursing note reviewed. Exam conducted with a character impersonator present (insurance loss assessor). Constitutional: General: She is in acute distress. [...] YONY Vazquez 09/24/23 1650 documented in this encounterSelect Medical Specialty [facility] [place]05-15-2024 History of Present illness Narrative* Rajni Cardozo, [...] discharge medication. Patient had been admitted to [facility] because of chest pain. Was sharp [...] Exam Vitals reviewed. Exam conducted with a character impersonator present (Friend/POA). Constitutional: General: She is not [...] treatment -no changes today documented in this encounterSelect Medical [facility]ty [facility] [place]04-22-2024 Miscellaneous Notes* Telephone Encounter - Monica Johnston [...] only one here Thursday documented in this encounterSelect Medical Specialty [facility] [place]04-22-2024 Telephone encounter Note* Telephone Encounter - Monica Johnston CMA - 08/17/2023 10:20 AM EDT Pt called stated that [facility] is waiting for a corrected RX for her portable O2 , stated it needs it sent today she is [facility] in the morning [facility] [employer] [id number] Telephone encounter Note* Telephone Encounter - Rajni Cardozo DO - 08/17/2023 10:20 AM EDT Message noted. It was corrected last week. Was it sent? [facility]04-22-2024 Telephone encounter Note* Telephone Encounter - Cathleen Arreola - 08/17/2023 10:20 AM EDT Will get it out today, was the only one here Thursday [facility] [employer] [id number] Miscellaneous Notes* Telephone Encounter - Leona Gaffney - 08/17/2023 9:06 AM EDT 08/13 Order received Scheduled PAP @ [facility] on 12/06 My chart confirmation [facility] Medicare / Medicaid Pap Order and 06/25/23 Stephanie Wilson Notes Run with TCO2 monitoring, previously tried/failed CPAP. Low threshold to switch to BiPAP if patient intolerant documented in this encounterMer[facility] [id number] Telephone encounter Note* Telephone Encounter - Leona Gaffney - 08/17/2023 9:06 AM EDT 08/13 Order received Scheduled PAP @ [facility] on 12/06 My chart confirmation [facility] Medicare / Medicaid Pap Order and 06/25/23 Stephanie Meadows Epic Notes Run with TCO2 monitoring, previously tried/failed CPAP. Low threshold to switch to BiPAP if patient intolerant [employer]04-18-2024 Miscellaneous Notes* Telephone Encounter - Kaia Jovel [...] (AHI (3%)=35.8 events/hour; AHI (4%)=13.1 events/hour; Dani SpO2=83.0%;Ciainv=930.0 lbs; BMI=38.2 kg/m2) DIAGNOSIS: Obstructive Sleep Apnea [...] titration is recommended. * Telephone Encounter - Sahri Garcia RN - 08/13/2023 2:39 PM EDT SERGIO - PLEASE FACILITATE THANKS documented in this encounterRutland [facility] CenterBig[facility]04-18-2024 Telephone encounter Note* Telephone Encounter - Kaia [...] (AHI (3%)=35.8 events/hour; AHI (4%)=13.1 events/hour; Dani SpO2=83.0%;Uwbakm=291.0 lbs; BMI=38.2 kg/m2) DIAGNOSIS: Obstructive Sleep Apnea [...] two hours. A CPAP titration is recommended. [employer] Work Phone: [phone]) [phone] Telephone encounter Note* Telephone Encounter - Shari Garcia RN - 08/13/2023 2:39 PM EDT SERGIO - PLEASE FACILITATE THANKS [facility]04-18-2024 Miscellaneous Notes* Telephone Encounter - Sofya Coe CMA - 08/13/2023 10:36 AM EDT Anabela from Medical Services called because the order for her O2 has to say POC setting at 2L/Min viaNasal Cannula or her insurance will not cover it. They want us to fax the new order to [phone] * Telephone Encounter - Rajni Cardozo DO - 08/13/2023 10:36 AM EDT Message noted. A new order for POC setting at 2L/Min via Nasal Cannula was placed in her chart today. Please fax this to [facility] so she can get her portable O2 concentrator * Telephone Encounter - Cathleen Arreola - 08/13/2023 10:36 AM EDT Got it documented in this encounterSelect Medical [facility]ty [facility] [place]04-18-2024 Telephone encounter Note* Telephone Encounter - Sofya Coe CMA - 08/13/2023 10:36 AM EDT Anabela from [facility] called because the order for her O2 has to say POC setting at 2L/Min viaNasal Cannula or her insurance will not cover it. They want us to fax the new order to [phone] [facility]04-18-2024 Telephone encounter Note* Telephone Encounter - Rajni Cardozo DO - 08/13/2023 10:36 AM EDT Message noted. A new order for POC setting at 2L/Min via Nasal Cannula was placed in her chart today. Please fax this to [facility] so she can get her portable O2 concentrator [employer]04-18-2024 Telephone encounter Note* Telephone Encounter - Cathleen Arreola - 08/13/2023 10:36 AM EDT Got it [facility] [id number] History of Present illness Narrative* Rajni Cardozo [...] Exam Vitals reviewed. Exam conducted with a character impersonator present (Friend and POA). Constitutional: General: She [...] Chronic respiratory failure with hypoxia and hypercapnia ([facility]) - Patient does have home O2 but needs portable O2 tank - Will refax order orginally given at time of discharge Chronic heart failure with preserved ejection fraction ([facility]) - Needs portable O2 as above BONY treated with BiPAP - Keep follow up with sleep clinic Bipolar disorder in partial remission, most recent episode unspecified type ([facility]) - Stable - At next visit, consider weaning off propanolol and doxepin documented in this encounterSelect Medical [facility]ty [facility]04-11-2024 Miscellaneous Notes* Telephone Encounter - GLORIA Scott - 08/06/2023 4:43 PM EDT Received call from patient in regard to her POC testing order, technical document writer informed patient that the order was sent to [facility] and that she should contact them if she does not hear from them by next week. Patient verbalized understanding. Patient also asked if she has a current prescription for Breztri, informed patient that a prescription for Breztri was sent to [facility] in [place] on 06/25/2023 with 10 refills, patient verbalized understanding. documented in this encounterSelect Medical [facility]ty [facility]04-11-2024 Telephone encounter Note* Telephone Encounter - GLORIA Scott - 08/06/2023 4:43 PM EDT Received call from patient in regard to her POC testing order, technical document writer informed patient that the order was sent to [facility] and that she should contact them if she does not hear from them by next week. Patient verbalized understanding. Patient also asked if she has a current prescription for Breztri, informed patient that a prescription for Breztri was sent to [facility] in [place] on 06/25/2023 with 10 refills, patient verbalized understanding. [facility]04-05-2024 Miscellaneous Notes* Telephone Encounter - Vandana Resendiz - 07/31/2023 11:51 AM EDT Patient called asking about getting a rx for portable oxygen for a trip on 08/17 she is taking. Advised there is a note in for the doctor and that she would get return call once the doctor has responded. documented in this encounterSelect Medical [facility]ty [facility]04-05-2024 Telephone encounter Note* Telephone Encounter - Vandana Resendiz - 07/31/2023 11:51 AM EDT Patient called asking about getting a rx for portable oxygen for a trip on 08/17 she is taking. Advised there is a note in for the doctor and that she would get return call once the doctor has responded. [facility]04-01-2024 Nurse Note* Gale Chiang RN - 07/27/2023 2:35 PM EDT Discharge instructions and medications reviewed with pt who verbalized understanding. Oxygen delivered by DME provider who instructed pt and her friend/roommate on use. PIV removed. Pt escorted to [facility] in w/c where her friend was waiting to provide transportation to home. [facility]04-01-2024 Nurse Note* Gale Chiang RN - 07/27/2023 2:35 PM EDT Discharge instructions and medications reviewed with pt who verbalized understanding. Oxygen delivered by DME provider who instructed pt and her friend/roommate on use. PIV removed. Pt escorted to lobby in [place] where her friend was waiting to provide transportation to home. documented in this encounterSelect Medical [facility]04-01-2024 Progress note* Discharge Planning Note - DEENA Carty - 07/27/2023 1:04 PM EDT Images from the original note were not included. DISCHARGE PLANNING NOTE Informed on careport from [facility]: Vicki that the home oxygen prescription is wrong, it does not match the home oxygen qualification. Pt needs oxygen with activity and not at rest: Dr Cardozo asked to correct order on [employer] chat. Vicki update on careport. Corrected oxygen order and face to face note sent via careport to Vicki at [facility] Await confirmation. DEENA Carty, 07/27/2023, [...] On Applied O2 With Exercise/Ambulation 95 % [facility]04-01-2024 Miscellaneous Notes* Discharge Planning Note - DEENA Carty - 07/27/2023 1:04 PM EDT Images from the original note were not included. DISCHARGE PLANNING NOTE Informed on careport from [facility]: Vicki that the home oxygen prescription is wrong, it does not match the home oxygen qualification. Pt needs oxygen with activity and not at rest: Dr Cardozo asked to correct order on [employer] chat. Vicki update on careport. Corrected oxygen order and face to face note sent via careport to Vicki at [facility] Await confirmation. DEENA Carty, 07/27/2023, [...] PLANNING NOTE Referral sent to [facility] [employer] formerly [employer], [employer] ([place]- P# ; F# ) ([place]- P# ; F# ) ([place]- P# ; F# ) ([place]- P# ; F# ) ([place]- P# ; F# ) ([place]- P# ; F# ) ([place]- P# [phone] ; F# [phone]) * Discharge Planning Note - DEENA Raines - 07/27/2023 11:06 AM EDT DISCHARGE PLANNING NOTE Tasked Transition Center to send referral to [facility] [employer] for home O2 with portability for [place] [...] Living Arrangements (with roommate Norma) Support Systems scientific research manager/healthcare social worker;Friends;Children;Therapist (friend Norma, 3 children out of state, psychiatrist, PASSPORT gearcase assembler) Assistance Needed walker, meals on wheel, PASSPORT Services Type of Residence Private residence Private Residence [facility] Accessibility Steps into home Number of Steps 5 Home Care Services Yes Type of Home Care Services Home health aide;Meals on Wheels;Other (Comment) (PASSPORT Services: Norma is paid aid for 2 hrs per day) Community Agencies Currently Utilized Texturing Machine Fixer;Mental health centers (PASSPORT Disability Case Manager: Elise; Psychiatrist Dr. Collier, [facility]) Patient expects to be discharged to: home [...] utilizing psychiatric services with Dr. Collier in [facility] for medical management; pt does not endorse any mental health concerns, negative [place] screen. Pt friend/roommate Norma provides transportation. Pt is utilizing PASSPORT Services, meals on wheels & roommate Norma is pt paid care provider for 2 hours per day. Pt relayed she speaks with her daughters who live out of state most days by phone & her son as well; family provides natural supports. Patient's preferred pharmacy is [facility]. PCP verified as Dr. Rajni Cardozo. Update from attending, monitoring for home O2. Pt aware of home O2 evaluation; technical document writer reviewed [facility], pt preference is [facility]. Educated on HHC, pt does not endorse [...] clean and dry. Skin protectant as needed. [place] pads in place. * Plan of Care - Mary Cee RN - 07/27/2023 1:31 AM EDT Problem: Pain Goal: Patient goal is pain score less than 4, able to rest, and participant in treatment plan as appropriate Description: INTERVENTIONS: 1. Encourage patient or legal computer help desk representative to report early pain and ask [...] per policy 9. Teach patient or legal computer help desk representative interventions for comforting Outcome: Progressing Note: [...] that there are some limitations compared to txuj-yc-rhsv evaluations. We elected to proceed. PULMONARY CONSULT Patient - Monet Recinos Age - 63 y.[facility]. - 1960 [facility] [id number] Date of Admission - 07/25/2023 4:29 PM [...] longer uses a BIPAP 01/28/23 Bipolar disorder ([facility]) Breast injury CHF (congestive heart failure) ([facility]) Chipped tooth Chronic kidney disease COPD (chronic obstructive pulmonary disease) ([facility]) Coronary artery disease Dementia ([facility]) Depression Diarrhea frequent bouts /involuntary Dizziness GERD (gastroesophageal reflux disease) Headache History of coronary artery bypass graft 08/14/2020 Liver disease Low back pain Memory loss Myocardial infarction ([facility]) Apr 2009, swith stent placement Obesity BONY treated with BiPAP 07/31/2022 Osteoarthritis Panic disorder Psoriasis PTSD (post-traumatic stress disorder) Rotator cuff tear L Shortness of breath Sleep apnea Visual impairment glasses Past Surgical History: Procedure Laterality Date BREAST BIOPSY BREAST CYST EXCISION Cardiac catheterization N/A 01/09/2020 Performed by Yefri Khan MD at [facility] Cardiac catheterization-LV Cors N/A 08/06/2020 Performed by Hazel Painting MD at [facility] SECTION CHOLECYSTECTOMY COLONOSCOPY N/A 04/03/2017 Performed by Jose Beaver MD at [facility] Coronary angiogram and left ventricular gram/pressure N/A 01/09/2020 Performed by Yefri Khan MD at [facility] CORONARY ANGIOPLASTY WITH STENT PLACEMENT CORONARY ARTERY BYPASS GRAFT X4/ THOMPSON/ SVG X3 / RIGHT UPPER LEG OPEN VEIN HARVEST/ LEFT UPPER LEG OPEN VEING HARVEST /GINETTE N/A 08/13/2020 Performed by Leroy Meng MD at [facility] Drug eluting stent left anterior descending N/A 01/09/2020 Performed by Yefri Khan MD at [facility] CARD[facility] CATH LABS EXCISION SEROMA LOWER EXTREMITY Left 10/07/2022 Performed by Victor Hugo Vincent DO at [facility] Intravascular ultrasound coronary N/A 08/06/2020 Performed by Hazel Painting MD at [facility]ATH [facility] Intravascular ultrasound coronary N/A 01/09/2020 Performed by Yefri Khan MD at [facility] CARDI[facility] CATH LABS NOTCHARGED/Thrombolysis arterial initial treatment N/A 01/09/2020 Performed by Yefri Khan MD at [facility] C[facility] CATH LABS TONSILLECTOMY Review of [...] BY MOUTH IN THE MORNING 90 tablet sgkdkysbnt-jwitsmgk-vkwksxgoxo (BREZTRI AEROSPHERE) 160-9-4.8 mcg/actuation HFA aerosol inhaler [...] min Stress: No Stress Concern Present (07/25/2023) [employer] - Occupational Stress Questionnaire Feeling of Stress : Only a little Recent Concern: Stress - Stress Concern Present (07/25/2023) [employer] - Occupational Stress Questionnaire Feeling of Stress : Very much Social Connections: Moderately Isolated (07/25/2023) Social Connection and Isolation Panel [NHANES] Frequency of Communication with Friends and Family: Three times a week Frequency of Social Gatherings with Friends and Family: Three times a week Attends Anabaptist Services: More than 4 times per year [...] Component Value Units Date/Time Blood culture #1 [[id number]] Collected: 07/25/23 175 Specimen: Blood Updated: 07/26/23 1007 Culture NO GROWTH <24 HRS SARS/FLU A+B/RSV by NAAT/Molecular (M4RT Collection Tube) [[id number]] Collected: 07/25/23 175 Specimen: Nasopharynx Updated: 07/25/23 1925 FLU A PCR Negative FLU B PCR Negative RSV by PCR Negative SARS CoV 2 BY PCR Not Detected Blood culture #2 [[id number]] Collected: 07/25/23 174 Specimen: Blood Updated: 07/26/23 1007 Culture NO GROWTH <24 HRS SARS/FLU A+B/RSV by NAAT/Molecular (M4RT Collection Tube) [[id number]] Collected: 07/24/23 215 Specimen: Nasopharynx Updated: 07/24/232243 [...] Component Value Units Date/Time Blood culture #1 [[id number]] Collected: 07/25/23 175 Specimen: Blood Updated: 07/26/23 1007 Culture NO GROWTH <24 HRS SARS/FLU A+B/RSV by NAAT/Molecular (M4RT Collection Tube) [[id number]] Collected: 07/25/23 175 Specimen: Nasopharynx Updated: 07/25/23 1925 FLU A PCR Negative FLU B PCR Negative RSV by PCR Negative SARS CoV 2 BY PCR Not Detected Blood culture #2 [[id number]] Collected: 07/25/23 1745 Specimen: Blood Updated: 07/26/23 1007 Culture NO GROWTH <24 HRS SARS/FLU A+B/RSV by NAAT/Molecular (M4RT Collection Tube) [[id number]] Collected: 07/24/232149 Specimen: Nasopharynx Updated: 07/24/232243 FLU A PCR Negative FLU B PCR Negative RSV by PCR Negative SARS CoV 2 BY PCR Not Detected Lines/Drains Peripheral IV 07/25/23 Right Antecubital (Active) Line Status Saline locked 07/26/23 08 Site Assessment Clean;Dry;Intact 07/26/23 0800 Dressing Type Transparent 07/26/23 08 Dressing Status [...] regurgitation or stenosis. Mitral Valve: There is rxdrb-sv-flgl regurgitation. There is no evidence of mitral valve stenosis. Tricuspid Valve: There is moderate regurgitation. RVSP estimated at 40-45 mmHg. Echo complete W/ contrast Result Date: 11/19/2021 Left Ventricle: Systolic function is normal with an ejection fraction of 55-60%. Aortic Valve: There is no regurgitation or stenosis. Mitral Valve: There is qnpjo-kk-xqjl regurgitation. There is no evidence of mitral [...] Description: INTERVENTIONS: 1. Encourage patient or legal computer help desk representative to report early pain and ask [...] per policy 9. Teach patient or legal computer help desk representative interventions for comforting Outcome: Progressing Note: Evaluation of progress towards goal: Continue to assess for pain and address accordingly Problem: Moderate - High Risk Fall Score Description: Shearer Fall Score of =/> 25 or indicated by [facility] Assessment Goal: Patient should be free from fall Description: Interventions: 1. Wagoner to environment 2. Hourly rounds addressing the [...] non-skid footwear 11. Teach patient and patient computer help desk representative to maintain environment for safety and [...] (cane, walker) within reach 19. Request patient computer help desk representative bring adaptive equipment/mobility aids from home or obtain and provide as needed 20. Consult pharmacy regarding effects of med's affecting mobility, cognition, and alternatives 21. Obtain physician order for PT if risk factors associated with mobility are present 22. Obtain physician order for OT as appropriate 23. Utilize diversional activities 24. Educate patient and patient computer help desk representative how to maintain a safe environment during visitationtimes (notify nurse prior to leaving bedside) 25. Consider appropriateness of medical or non-medical practice assistant 26. Set up voiding schedule as appropriate [...] Description: INTERVENTIONS: 1. Encourage patient or legal computer help desk representative to report early pain and ask [...] per policy 9. Teach patient or legal computer help desk representative interventions for comforting Outcome: Progressing Note: [...] at the bedside 7. Instruct patient/ patient computer help desk representative about use of safety devices 8. Include patient/ patient computer help desk representative in decisions related to safety Outcome: Progressing Note: Evaluation of progress towards goal: Remains free from injury. Safety precautions maintained. Problem: Knowledge Deficit Goal: Patient/patient computer help desk representative demonstrates understanding of disease process, treatment [...] be free from fall Description: Interventions: 1. Wagoner to environment 2. Hourly rounds addressing the [...] non-skid footwear 11. Teach patient and patient computer help desk representative to maintain environment for safety and [...] (cane, walker) within reach 19. Request patient computer help desk representative bring adaptive equipment/mobility aids from home or obtain and provide as needed 20. Consult pharmacy regarding effects of med's affecting mobility, cognition, and alternatives 21. Obtain physician order for PT if risk factors associated with mobility are present 22. Obtain physician order for OT as appropriate 23. Utilize diversional activities 24. Educate patient and patient computer help desk representative how to maintain a safe environment during visitationtimes (notify nurse prior to leaving bedside) 25. Consider appropriateness of medical or non-medical practice assistant 26. Set up voiding schedule as appropriate [...] denies shortness of breath. [facility] Progress note* Discharge Planning Note - Concepcion Vargas - 07/27/2023 11:12 AM EDT DISCHARGE PLANNING NOTE Referral sent to [facility] [employer] [facility] [employer] [facility], Santosh Finch ([place]- P# ; F# ) ([place]- P# ; F# ) ([place]- P# ; F# ) ([place]- P# ; F# ) ([place]- P# ; F# ) ([place]- P# ; F# ) ([place]- P# [phone] ; F# [phone]) [facility] Progress note* Discharge Planning Note - DEENA Raines - 07/27/2023 11:06 AM EDT DISCHARGE PLANNING NOTE Tasked Transition Center to send referral to [facility] for home O2 with portability for DC today; requested delivery time of equipment. [employer] [id number] Hospital course Narrative* Rajni Cardozo DO - 07/27/2023 10:45 AM EDT Images from the original note were not included. HOSPITAL DISCHARGE NOTE Patient Name: Monet Recinos : 1960 PCP: Rajni Cardozo Jr, DO Date of admission: 07/25/2023 Date of discharge: 07/27/2023 Discharge diagnoses: Principal Problem: Chronic respiratory failure with hypoxia and hypercapnia (CMS-HCC) Active Problems: 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 (CMS-HCC) Essential hypertension Bipolar 2 disorder, major depressive episode (CMS-[facility]) Consultants: Consulting Providers Provider Service Specialty Nathaniel [...] 160-9-4.8 mcg/actuation HFA aerosol inhaler Generic drug: wmceafvsxp-qsxtytrb-dvzlajljnn Inhale 2 puffs in the morning and [...] on discharging this patient. [facility] History of Present illness Narrative* Rebecca Martinez [...] depression, and bipolar disorder. documented in [facility]Select [facility] [place]-2024 Progress note* Discharge Planning Note - DEENA Raines - 07/27/2023 10:21 AM EDT Images from the original note were not included. DISCHARGE PLANNING NOTE 07/27/23 1005 Discharge Disposition Discharge Disposition Home with Self Care County Information [facility] Patient Information Primary Caregiver Self Support System Immediate family;Extended family (roommate/friend/aid Norma, 3 children out of state) Stressors Type of stressor (does not endorse) Income Information Income Information Disability Referral To Community Resources Denies needs Discharge Planning Living Arrangements (with roommate Norma) Support Systems scientific research manager/healthcare social worker;Friends;Children;Therapist (friend Norma, 3 children out of state, psychiatrist, AKILA gearcase assembler) Assistance Needed walker, meals on wheel, PASSPORT Services Type of Residence Private residence Private Residence [address] [place] [address] Accessibility Steps into home Number of Steps 5 Home Care Services Yes Type of Home Care Services Home health aide;Meals on Wheels;Other (Comment) (PASSPORT Services: Norma is paid aid for 2 hrs per day) Community Agencies Currently Utilized Texturing Machine Fixer;Mental health centers (PASSPORT Disability Case Manager: Elise; Psychiatrist Dr. Collier, [facility]) Patient expects to be discharged to: home [...] utilizing psychiatric services with Dr. Collier in [facility] for medical management; pt does not endorse any mental health concerns, negative [place] screen. Pt friend/roommate Norma provides transportation. Pt is utilizing PASSPORT Services, meals on wheels & roommate Norma is pt paid care provider for 2 hours per day. Pt relayed she speaks with her daughters who live out of state most days by phone & her son as well; family provides natural supports. Patient's preferred pharmacy is [facility]. PCP verified as Dr. Rajni Cardozo. Update from attending, monitoring for home O2. Pt aware of home O2 evaluation; technical document writer reviewed areaE's, pt preference is [employer]. Educated on [facility], pt does not endorse current needs. Opportunity provided to ask questions, pt does not endorse any at this time. Plan to prevent readmission is for pt to follow up with PCP, pt prefers to make own appointment, follow DC instructions including medication compliance and to reach out to health care team as needed. Care Navigation following for safe care transition. [facility]04-01-2024 Plan of care note* Plan of Care [...] clean and dry. Skin protectant as needed. [place] pads in place. [employer]04-01-2024 Plan of care note* Plan of Care - Mary Cee RN - 07/27/2023 1:31 AM EDT Problem: Pain Goal: Patient goal is pain score less than 4, able to rest, and participant in treatment plan as appropriate Description: INTERVENTIONS: 1. Encourage patient or legal computer help desk representative to report early pain and ask [...] per policy 9. Teach patient or legal computer help desk representative interventions for comforting Outcome: Progressing Note: Evaluation of progress towards goal: patient verbalized no pain T [employer]03-31-2024 Plan of care note* Plan of Care [...] Nebulizer Duration (Minutes) 10 Position High Abebe's [employer]03-31-2024 Consult note* Telehealth Consult - Nathaniel Carlos [...] that there are some limitations compared to vpru-is-ehhs evaluations. We elected to proceed. PULMONARY CONSULT Patient - Monet Recinos Age - 63 y.o. - 1960 Date of Admission - 07/25/2023 4:29 PM Consulting Service/Physician Consulting: Consulting Providers Provider Service Specialty Nathaniel Carlos MD Z Pulmonology Pulmonary Medicine Primary Care Physician: Rajni Cardozo Jr DO Reason for visit: copd resp failure [...] longer uses a BIPAP 01/28/23 Bipolar disorder ([facility]) Breast injury CHF (congestive heart failure) ([facility]) Chipped tooth Chronic kidney disease COPD (chronic obstructive pulmonary disease) ([facility]) Coronary artery disease Dementia ([facility]) Depression Diarrhea frequent bouts /involuntary Dizziness GERD (gastroesophageal reflux disease) Headache History of coronary artery bypass graft 08/14/2020 Liver disease Low back pain Memory loss Myocardial infarction ([facility]) Apr 2009, swith stent placement Obesity BONY treated with BiPAP 07/31/2022 Osteoarthritis Panic disorder Psoriasis PTSD (post-traumatic stress disorder) Rotator cuff tear L Shortness of breath Sleep apnea Visual impairment glasses Past Surgical History: Procedure Laterality Date BREAST BIOPSY BREAST CYST EXCISION Cardiac catheterization N/A 01/09/2020 Performed by Yefri Khan MD at [facility] C[facility]ATH [facility]S Cardiac catheterization-LV Cors N/A 08/06/2020 Performed by Hazel Painting MD at [facility] CATH LABS SECTION CHOLECYSTECTOMY COLONOSCOPY N/A 04/03/2017 Performed by Jose Beaver MD at [facility] Coronary angiogram and left ventricular gram/pressure N/A 01/09/2020 Performed by Yefri Khan MD at [facility] CARDI[facility] CATH LABS CORONARY ANGIOPLASTY WITH STENT PLACEMENT CORONARY ARTERY BYPASS GRAFT X4/ THOMPSON/ SVG X3 / RIGHT UPPER LEG OPEN VEIN HARVEST/ LEFT UPPER LEG OPEN VEING HARVEST /GINETTE N/A 08/13/2020 Performed by Leroy Meng MD at [facility] Drug eluting stent left anterior descending N/A 01/09/2020 Performed by Yefri Khan MD at [facility] C[facility] CATH LABS EXCISION SEROMA LOWER EXTREMITY Left 10/07/2022 Performed by Victor Hugo Vincent DO at [facility] Intravascular ultrasound coronary N/A 08/06/2020 Performed by Hazel Painting MD at [facility] C[facility] CATH LABS Intravascular ultrasound coronary N/A 01/09/2020 Performed by Yefri Khan MD at [facility] CARDIAC CATH LABS NOTCHARGED/Thrombolysis arterial initial treatment N/A 01/09/2020 Performed by Yefri Khan MD at [facility] CARDIAC CATH LABS TONSILLECTOMY Review of [...] BY MOUTH IN THE MORNING 90 tablet jzamqengcr-wsszxwwb-uzvbydnlol (BREZTRI AEROSPHERE) 160-9-4.8 mcg/actuation HFA aerosol inhaler [...] min Stress: No Stress Concern Present (07/25/2023) [employer] - Occupational Stress Questionnaire Feeling of Stress : Only a little Recent Concern: Stress - Stress Concern Present (07/25/2023) [employer] - Occupational Stress Questionnaire Feeling of Stress : Very much Social Connections: Moderately Isolated (07/25/2023) Social Connection and Isolation Panel [NHANES] Frequency of Communication with Friends and Family: Three times a week Frequency of Social Gatherings with Friends and Family: Three times a week Attends Anabaptist Services: More than 4 times per year [...] Component Value Units Date/Time Blood culture #1 [[id number]] Collected: 07/25/231756 Specimen: Blood Updated: 07/26/23 1007 Culture NO GROWTH <24 HRS SARS/FLU A+B/RSV by NAAT/Molecular (M4RT Collection Tube) [[id number]] Collected: 07/25/231749 Specimen: Nasopharynx Updated: 07/25/231924 FLU A PCR Negative FLU B PCR Negative RSV by PCR Negative SARS CoV 2 BY PCR Not Detected Blood culture #2 [[id number]] Collected: 07/25/231744 Specimen: Blood Updated: 07/26/23 1007 Culture NO GROWTH <24 HRS SARS/FLU A+B/RSV by NAAT/Molecular (M4RT Collection Tube) [[id number]] Collected: 07/24/232149 Specimen: Nasopharynx Updated: 07/24/232243 FLU [...] Component Value Units Date/Time Blood culture #1 [[id number]] Collected: 07/25/231756 Specimen: Blood Updated: 07/26/23 1007 Culture NO GROWTH <24 HRS SARS/FLU A+B/RSV by NAAT/Molecular (M4RT Collection Tube) [[id number]] Collected: 07/25/231749 Specimen: Nasopharynx Updated: 07/25/231924 FLU A PCR Negative FLU B PCR Negative RSV by PCR Negative SARS CoV 2 BY PCR Not Detected Blood culture #2 [[id number]] Collected: 07/25/231744 Specimen: Blood Updated: 07/26/23 1007 Culture NO GROWTH <24 HRS SARS/FLU A+B/RSV by NAAT/Molecular (M4RT Collection Tube) [[id number]] Collected: 07/24/232149 Specimen: Nasopharynx Updated: 07/24/232243 FLU [...] regurgitation or stenosis. Mitral Valve: There is yflgt-oj-ipiw regurgitation. There is no evidence of mitral valve stenosis. Tricuspid Valve: There is moderate regurgitation. RVSP estimated at 40-45 mmHg. Echo complete W/ contrast Result Date: 11/19/2021 Left Ventricle: Systolic function is normal with an ejection fraction of 55-60%. Aortic Valve: There is no regurgitation or stenosis. Mitral Valve: There is jxbim-hh-giud regurgitation. There is no evidence of mitral valve stenosis. Tricuspid Valve: There is moderate regurgitation. RVSP calculated at 42 mmHg. RVSP is based on RA pressure of 3 mmHg. ASSESSMENT / PLAN: COPD - BD Acute hypoxic resp failure - O2; wean as tolerated ? Home O2 BONY/OHS BPAP as tolerated Sleep study scheduled for next week DW patient [employer] Work Phone: [phone]) 863-481503-31-2024 Plan of care note* Plan of Care - Gale Chiang RN - 07/26/2023 10:00 AM EDT Problem: Pain Goal: Patient goal is pain score less than 4, able to rest, and participant in treatment plan as appropriate Description: INTERVENTIONS: 1. Encourage patient or legal computer help desk representative to report early pain and ask [...] per policy 9. Teach patient or legal computer help desk representative interventions for comforting Outcome: Progressing Note: Evaluation of progress towards goal: Continue to assess for pain and address accordingly Problem: Moderate - High Risk Fall Score Description: Shearer Fall Score of =/> 25 or indicated by [facility] Assessment Goal: Patient should be free from fall Description: Interventions: 1. Wagoner to environment 2. Hourly rounds addressing the [...] non-skid footwear 11. Teach patient and patient computer help desk representative to maintain environment for safety and [...] (cane, walker) within reach 19. Request patient computer help desk representative bring adaptive equipment/mobility aids from home or obtain and provide as needed 20. Consult pharmacy regarding effects of med's affecting mobility, cognition, and alternatives 21. Obtain physician order for PT if risk factors associated with mobility are present 22. Obtain physician order for OT as appropriate 23. Utilize diversional activities 24. Educate patient and patient computer help desk representative how to maintain a safe environment during visitationtimes (notify nurse prior to leaving bedside) 25. Consider appropriateness of medical or non-medical practice assistant 26. Set up voiding schedule as appropriate (every 2 hours) Outcome: Progressing Note: Evaluation of progress towards goal: PT is free of falls, hourly rounding is completed, area is kept clear. [employer] [id number] Plan of care note* Plan of Care [...] Nebulizer Duration (Minutes) 10 Position Semi [place] [facility]03-31-2024 Plan of care note* Plan of Care - Lissette Mathews RN - 07/26/2023 4:47 AM EDT Problem: Pain Goal: Patient goal is pain score less than 4, able to rest, and participant in treatment plan as appropriate Description: INTERVENTIONS: 1. Encourage patient or legal computer help desk representative to report early pain and ask [...] per policy 9. Teach patient or legal computer help desk representative interventions for comforting Outcome: Progressing Note: [...] at the bedside 7. Instruct patient/ patient computer help desk representative about use of safety devices 8. Include patient/ patient computer help desk representative in decisions related to safety Outcome: Progressing Note: Evaluation of progress towards goal: Remains free from injury. Safety precautions maintained. Problem: Knowledge Deficit Goal: Patient/patient computer help desk representative demonstrates understanding of disease process, treatment [...] Score of =/> 25 or indicated by [facility] Assessment Goal: Patient should be free from fall Description: Interventions: 1. Wagoner to environment 2. Hourly rounds addressing the [...] non-skid footwear 11. Teach patient and patient computer help desk representative to maintain environment for safety and [...] (cane, walker) within reach 19. Request patient computer help desk representative bring adaptive equipment/mobility aids from home or obtain and provide as needed 20. Consult pharmacy regarding effects of med's affecting mobility, cognition, and alternatives 21. Obtain physician order for PT if risk factors associated with mobility are present 22. Obtain physician order for OT as appropriate 23. Utilize diversional activities 24. Educate patient and patient computer help desk representative how to maintain a safe environment during visitationtimes (notify nurse prior to leaving bedside) 25. Consider appropriateness of medical or non-medical practice assistant 26. Set up voiding schedule as appropriate [...] distress noted. PT denies shortness of breath. [employer] [id number] History and physical note* Rajni Gimenez MD [...] longer uses a BIPAP 01/28/23 Bipolar disorder ([facility]) Breast injury CHF (congestive heart failure) ([facility]) Chipped tooth Chronic kidney disease COPD (chronic obstructive pulmonary disease) ([facility]) Coronary artery disease Dementia ([facility]) Depression Diarrhea frequent bouts /involuntary Dizziness GERD (gastroesophageal reflux disease) Headache History of coronary artery bypass graft 08/14/2020 Liver disease Low back pain Memory loss Myocardial infarction ([facility]) Apr 2009, swith stent placement Obesity BONY treated with BiPAP 07/31/2022 Osteoarthritis Panic disorder Psoriasis PTSD (post-traumatic stress disorder) Shortness of breath Sleep apnea Visual impairment glasses PAST SURGICAL HISTORY: Past Surgical History: Procedure Laterality Date BREAST BIOPSY BREAST CYST EXCISION Cardiac catheterization N/A 01/09/2020 Performed by Yefri Khan MD at [facility]ATH [facility] Cardiac catheterization-LV Cors N/A 08/06/2020 Performed by Hazel Painting MD at [facility]ATH [facility]S SECTION CHOLECYSTECTOMY COLONOSCOPY N/A 04/03/2017 Performed by Jose Beaver MD at [facility] Coronary angiogram and left ventricular gram/pressure N/A 01/09/2020 Performed by Yefri Khan MD at [facility] C[facility] CATH LABS CORONARY ANGIOPLASTY WITH STENT PLACEMENT CORONARY ARTERY BYPASS GRAFT X4/ THOMPSON/ SVG X3 / RIGHT UPPER LEG OPEN VEIN HARVEST/ LEFT UPPER LEG OPEN VEING HARVEST /GINETTE N/A 08/13/2020 Performed by Leroy Meng MD at [facility] Drug eluting stent left anterior descending N/A 01/09/2020 Performed by Yefri Khan MD at [facility] C[facility] CATH LABS EXCISION SEROMA LOWER EXTREMITY Left 10/07/2022 Performed by Victor Hugo Vincent DO at [facility] Intravascular ultrasound coronary N/A 08/06/2020 Performed by Hazel Painting [facility] [facility] Intravascular ultrasound coronary N/A 01/09/2020 Performed by Yefri Khan MD at [facility] NOTCHARGED/Thrombolysis arterial initial treatment N/A 01/09/2020 Performed by Yefri Khan MD at [facility] TONSILLECTOMY Travel History [...] min Stress: No Stress Concern Present (07/25/2023) [employer] - Occupational Stress Questionnaire Feeling of Stress : Only a little Recent Concern: Stress - Stress Concern Present (07/25/2023) [employer] - Occupational Stress Questionnaire Feeling of Stress : Very much Social Connections: Moderately Isolated (07/25/2023) Social Connection and Isolation Panel [NHANES] Frequency of Communication with Friends and Family: Three times a week Frequency of Social Gatherings with Friends and Family: Three times a week Attends Anabaptist Services: More than 4 times per year [...] BY MOUTH IN THE MORNING 90 tablet dkurhidxiw-rlycerux-fqtqswuxqu (BREZTRI AEROSPHERE) 160-9-4.8 mcg/actuation HFA aerosol inhaler [...] is stable and further pending her course. [employer]03-30-2024 History and physical note* Rajni Gimenez MD [...] longer uses a BIPAP 01/28/23 Bipolar disorder ([facility]) Breast injury CHF (congestive heart failure) ([facility]) Chipped tooth Chronic kidney disease COPD (chronic obstructive pulmonary disease) ([facility]) Coronary artery disease Dementia ([facility]) Depression Diarrhea frequent bouts /involuntary Dizziness GERD (gastroesophageal reflux disease) Headache History of coronary artery bypass graft 08/14/2020 Liver disease Low back pain Memory loss Myocardial infarction ([facility]) Apr 2009, swith stent placement Obesity BONY treated with BiPAP 07/31/2022 Osteoarthritis Panic disorder Psoriasis PTSD (post-traumatic stress disorder) Shortness of breath Sleep apnea Visual impairment glasses PAST SURGICAL HISTORY: Past Surgical History: Procedure Laterality Date BREAST BIOPSY BREAST CYST EXCISION Cardiac catheterization N/A 01/09/2020 Performed by Yefri Khan MD at [facility] Cardiac catheterization-LV Cors N/A 08/06/2020 Performed by Hazel Painting MD at [facility] SECTION CHOLECYSTECTOMY COLONOSCOPY N/A 04/03/2017 Performed by Jose Beaver MD at [facility] Coronary angiogram and left ventricular gram/pressure N/A 01/09/2020 Performed by Yefri Khan MD at [facility] CORONARY ANGIOPLASTY WITH STENT PLACEMENT CORONARY ARTERY BYPASS GRAFT X4/ THOMPSON/ SVG X3 / RIGHT UPPER LEG OPEN VEIN HARVEST/ LEFT UPPER LEG OPEN VEING HARVEST /GINTETE N/A 08/13/2020 Performed by Leroy Meng MD at [facility] Drug eluting stent left anterior descending N/A 01/09/2020 Performed by Yefri Khan MD at [facility] EXCISION SEROMA LOWER EXTREMITY Left 10/07/2022 Performed by Victor Hugo Vincent DO at [facility] Intravascular ultrasound coronary N/A 08/06/2020 Performed by Hazel Painting MD at [facility] Intravascular ultrasound coronary N/A 01/09/2020 Performed by Yefri Khan MD at [facility] NOTCHARGED/Thrombolysis arterial initial treatment N/A 01/09/2020 Performed by Yefri Khan MD at [facility] TONSILLECTOMY Travel History [...] min Stress: No Stress Concern Present (07/25/2023) [employer] - Occupational Stress Questionnaire Feeling of Stress : Only a little Recent Concern: Stress - Stress Concern Present (07/25/2023) [employer] - Occupational Stress Questionnaire Feeling of Stress : Very much Social Connections: Moderately Isolated (07/25/2023) Social Connection and Isolation Panel [NHANES] Frequency of Communication with Friends and Family: Three times a week Frequency of Social Gatherings with Friends and Family: Three times a week Attends Anabaptist Services: More than 4 times per year [...] BY MOUTH IN THE MORNING 90 tablet vogorydkrm-hfjfjiwf-ylnwtxqczu (BREZTRI AEROSPHERE) 160-9-4.8 mcg/actuation HFA aerosol inhaler [...] further pending her course. documented [facility] [place] Note Procedure: Chest x-ray performed Number of views:2 History:Shortness of breath Comparison:07/24/2023 Findings: The heart and lungs show no acute findings, and the mediastinum and satnam are grossly negative . Impression: 1. No acute change. Finalized by Abdelrahman Patel MD on 07/25/2023 5:16 [id number] Physician Emergency department Note* Mary Lock MD [...] - Primary Other Visit Diagnoses COPD exacerbation ([facility]) Relevant Medications ipratropium-albuteroL (DUONEB) 0.5 mg-3 mg(2.5 mg base)/3 mL nebulizer solution 3 mL (Completed) dexAMETHasone sodium phos (PF) (DECADRON) injection 10 mg ipratropium-albuteroL (DUONEB) 0.5 mg-3 mg(2.5 mg base)/3 mL nebulizer solution 3 mL Acute respiratory failure with hypoxia and hypercapnia ([facility]) Past Medical History: Diagnosis Date Agoraphobia Angina at rest Anxiety BiPAP (biphasic positive airway pressure) dependence Patient states she no longer uses a BIPAP 01/28/23 Bipolar disorder ([facility]) Breast injury CHF (congestive heart failure) ([facility]) Chipped tooth COPD (chronic obstructive pulmonary disease) ([facility]) Coronary artery disease Dementia ([facility]) Depression GERD (gastroesophageal reflux disease) History of coronary artery bypass graft 08/14/2020 Liver disease Low back pain Myocardial infarction ([facility]) Apr 2009, swith stent placement Obesity BONY treated with BiPAP 07/31/2022 Osteoarthritis Panic disorder PTSD (post-traumatic stress disorder) Sleep apnea Visual impairment glasses Past Surgical History: Procedure Laterality Date BREAST BIOPSY BREAST CYST EXCISION Cardiac catheterization N/A 01/09/2020 Performed by Yefri Khan MD at [facility] Cardiac catheterization-LV Cors N/A 08/06/2020 Performed by Hazel Painting MD at [facility] SECTION CHOLECYSTECTOMY COLONOSCOPY N/A 04/03/2017 Performed by Jose Beaver MD at [facility] Coronary angiogram and left ventricular gram/pressure N/A 01/09/2020 Performed by Yefri Khan MD at [facility] CORONARY ANGIOPLASTY WITH STENT PLACEMENT CORONARY ARTERY BYPASS GRAFT X4/ THOMPSON/ SVG X3 / RIGHT UPPER LEG OPEN VEIN HARVEST/ LEFT UPPER LEG OPEN VEING HARVEST /GINETTE N/A 08/13/2020 Performed by Leroy Meng MD at [facility] Drug eluting stent left anterior descending N/A 01/09/2020 Performed by Yefri Khan MD at [facility] EXCISION SEROMA LOWER EXTREMITY Left 10/07/2022 Performed by Victor Hugo Vincent DO at [facility] Intravascular ultrasound coronary N/A 08/06/2020 Performed by Hazel Painting MD at [facility] Intravascular ultrasound coronary N/A 01/09/2020 Performed by Yefri Khan MD at [facility] NOTCHARGED/Thrombolysis arterial initial treatment N/A 01/09/2020 Performed by Yefri Khan MD at [facility] TONSILLECTOMY Travel Screening [...] Re-Evaluation ED Course ED Course as of 07/25/237 Sat Jul 25, 2023 1725 Chart reviewed. Yesterday's ER workup reviewed: Dimer [...] sentences at this time. There is no unit coordinator available in the ED, so will workon [...] Clinical Impressions as of 07/25/231926 COPD exacerbation ([facility]) Acute respiratory failure with hypoxia and hypercapnia ([facility]) Hypoxia MDM Medical Decision Making Heena Bob) documented for Dr. Lock. Chart Reviewed. Date: [...] signing this emergency patient record, the Emergency Physician/HEALTH SERVICE COORDINATOR/PA-C attests that all entries made into the electronic medical record by arianna John prior to the Physician/HEALTH SERVICE COORDINATOR/PA-C signature reflect an accurate accounting of the evaluation and care rendered by that Emergency Physician/HEALTH SERVICE COORDINATOR/PA-C. The Emergency Physician/HEALTH SERVICE COORDINATOR/PA-C assumes full responsibility for those entries. The Emergency Physician/HEALTH SERVICE COORDINATOR/PA-C also attests that any patient testing or treatment that was instituted by nursing staff in accordance to Emergency Department Preemptive Guidelines have been reviewed and unless so stated elsewhere in this patient chart, the Physician/HEALTH SERVICE COORDINATOR/PA-C agrees with the testing and care provided. No Additional Attestations Heena Tran 07/25/23 1728 Heena Tran 07/25/23 1811 Heena Tran 07/25/23 1812 Heena Tran 07/25/23 1812 Heena Tran 07/25/23 1824 Mary Lock MD 07/25/23 182 Heena Tran 07/25/23 1837 Heena Tran 07/25/23 1905 Mary Lock MD 07/25/231922 Mary Lock MD 07/25/231926 [facility] Emergency department Note* Mary Lock MD - [...] - Primary Other Visit Diagnoses COPD exacerbation ([facility]) Relevant Medications ipratropium-albuteroL (DUONEB) 0.5 mg-3 mg(2.5 mg base)/3 mL nebulizer solution 3 mL (Completed) dexAMETHasone sodium phos (PF) (DECADRON) injection 10 mg ipratropium-albuteroL (DUONEB) 0.5 mg-3 mg(2.5 mg base)/3 mL nebulizer solution 3 mL Acute respiratory failure with hypoxia and hypercapnia ([facility]) Past Medical History: Diagnosis Date Agoraphobia Angina at rest Anxiety BiPAP (biphasic positive airway pressure) dependence Patient states she no longer uses a BIPAP 01/28/23 Bipolar disorder ([facility]) Breast injury CHF (congestive heart failure) ([facility]) Chipped tooth COPD (chronic obstructive pulmonary disease) ([facility]) Coronary artery disease Dementia ([facility]) Depression GERD (gastroesophageal reflux disease) History of coronary artery bypass graft 08/14/2020 Liver disease Low back pain Myocardial infarction ([facility]) Apr 2009, swith stent placement Obesity BONY treated with BiPAP 07/31/2022 Osteoarthritis Panic disorder PTSD (post-traumatic stress disorder) Sleep apnea Visual impairment glasses Past Surgical History: Procedure Laterality Date BREAST BIOPSY BREAST CYST EXCISION Cardiac catheterization N/A 01/09/2020 Performed by Yefri Khan MD at [facility] Cardiac catheterization-LV Cors N/A 08/06/2020 Performed by Hazel Painting MD at [facility] SECTION CHOLECYSTECTOMY COLONOSCOPY N/A 04/03/2017 Performed by Jose Beaver MD at [facility] Coronary angiogram and left ventricular gram/pressure N/A 01/09/2020 Performed by Yefri Khan MD at [facility] CORONARY ANGIOPLASTY WITH STENT PLACEMENT CORONARY ARTERY BYPASS GRAFT X4/ THOMPSON/ SVG X3 / RIGHT UPPER LEG OPEN VEIN HARVEST/ LEFT UPPER LEG OPEN VEING HARVEST /GINETTE N/A 08/13/2020 Performed by Leroy Meng MD at [facility] Drug eluting stent left anterior descending N/A 01/09/2020 Performed by Yefri Khan MD at [facility] EXCISION SEROMA LOWER EXTREMITY Left 10/07/2022 Performed by Victor Hugo Vincent DO at [facility] Intravascular ultrasound coronary N/A 08/06/2020 Performed by Hazel Painting MD at [facility] Intravascular ultrasound coronary N/A 01/09/2020 Performed by Yefri Khan MD at [facility] NOTCHARGED/Thrombolysis arterial initial treatment N/A 01/09/2020 Performed by Yefri Khan MD at [facility] TONSILLECTOMY Travel Screening [...] sentences at this time. There is no unit coordinator available in the ED, so will workon [...] Clinical Impressions as of 07/25/231926 COPD exacerbation ([facility]) Acute respiratory failure with hypoxia and hypercapnia ([facility]) Hypoxia MDM Medical Decision Making Heena Bob (formerly [facility]) documented for Dr. Lock. Chart Reviewed. Date: [...] signing this emergency patient record, the Emergency Physician/HEALTH SERVICE COORDINATOR/PA-C attests that all entries made into the electronic medical record by arianna John prior to the Physician/HEALTH SERVICE COORDINATOR/PA-C signature reflect an accurate accounting of the evaluation and care rendered by that Emergency Physician/HEALTH SERVICE COORDINATOR/PA-C. The Emergency Physician/HEALTH SERVICE COORDINATOR/PA-C assumes full responsibility for those entries. The Emergency Physician/HEALTH SERVICE COORDINATOR/PA-C also attests that any patient testing or treatment that was instituted by nursing staff in accordance to Emergency Department Preemptive Guidelines have been reviewed and unless so stated elsewhere in this patient chart, the Physician/HEALTH SERVICE COORDINATOR/PA-C agrees with the testing and care provided. No Additional Attestations Heena Tran 07/25/23 1728 Heena Tran 07/25/23 1811 Heena Tran 07/25/23 1812 Heena Tran 07/25/23 1812 Heena Tran 07/25/23 1824 Mary Lock MD 07/25/23 182 Heena Tran 07/25/23 1837 Heena Tran 07/25/23 1905 Mary Lock MD 07/25/23 192 Mary Lock MD 07/25/231926 * Jade Alvarez RN - 07/25/2023 4:31 PM EDT Patient presents with complaints of difficulty breathing x's 1 week. Patient states she was seen int ER yesterday and diagnosed with Right Lower Lobe pneumonia. SpO2 on room air 85% documented in this encounter[facility] [place] Emergency department Triage note* Jade Alvarez RN - 07/25/2023 4:31 PM EDT Patient presents with complaints of difficulty breathing x's 1 week. Patient states she was seen int ER yesterday and diagnosed with Right Lower Lobe pneumonia. SpO2 on room air 85% [facility] History of Present illness Narrative* Rajni Cardozo DO - 07/01/2023 2:15 PM EST IM PROGRESS NOTE Patient - Monet Recinos Age - 63 y.o. - 1960 ASSESSMENT & PLAN 1. Fibromyalgia syndrome -ongoing [...] strengthening. 2. Stage 3a chronic kidney disease ([facility]) -recent GFR 45 -again is on multiple [...] Chronic heart failure with preserved ejection fraction ([facility]) -GDMT currently includes beta-georgi, SGLT 2 agent, [...] Exam Vitals reviewed. Exam conducted with a character impersonator present (Friend/POA). Constitutional: General: She is not [...] THE MORNING, Disp: 90 tablet, Rfl: 3 xesebqzchz-snrhkksx-yrtmiubtmm (BREZTRI AEROSPHERE) 160-9-4.8 mcg/actuation HFA aerosol inhaler, [...] measurable pneumothorax. Right costophrenic angle excluded from [id number]. Impression: 1. Persistent effusions, with or without [...] on 04/13/2023 1:48 PM Rajni Cardozo DO., [facility] Office: [phone] documented in this encounterSelect [facility] [place]-29-2024 Miscellaneous Notes* Telephone Encounter - Heena Mendoza - 06/25/2023 2:20 PM EST Order received Scheduled SN at [facility] on 08/11/23 Confirmation emailed [facility] Medicare Dual Complete Medicaid [place] SN Order and 06/25/23 Stephanie Wilson Notes Quick transition to BIPAP- WITH TCO2 monitoring documented in this encounterSelect [facility] [place]-29-2024 Telephone encounter Note* Telephone Encounter - Heena Mendoza - 06/25/2023 2:20 PM EST Order received Scheduled SN at [facility] on 08/11/23 Confirmation emailed [facility] Medicare Dual Complete Medicaid [place] SN Order and 06/25/23 Stephanie Lynton [facility] Notes Quick transition to BIPAP- WITH TCO2 monitoring [employer]02-29-2024 History of Present illness Narrative* Grace Meadows, DO - 06/25/2023 10:00 AM EST Images from the original note were not included. [employer] Pulmonary And Sleep Progress Note Patient - [...] but also refused. She was admitted to [facility] ICU and seen by Pulmonary there. She [...] assess for acuity. Dr. Grace Meadows DO. [facility] Pulmonary & Critical Care Office: [phone] documented in this encounterSelect [facility] [place]-29-2024 Miscellaneous Notes* Telephone Encounter - Bipin Allen - 06/25/2023 9:54 AM EST Pt called in to inform that her battery but she is getting it jumped now, she stated that she will still make it to her 10am appt today w/SE Pls advise pt documented in this encounterSelect [facility] [place]-29-2024 Telephone encounter Note* Telephone Encounter - Bipin Allen - 06/25/2023 9:54 AM EST Pt called in to inform that her battery but she is getting it jumped now, she stated that she will still make it to her 10am appt today w/SE Pls advise pt [place] [id number] History of Present illness Narrative* Rajni Cardozo, [...] history. Most recently had prolonged hospitalization at [facility] due to severe pneumonia, and was [...] Exam Vitals reviewed. Exam conducted with a character impersonator present (Friend/POA). Constitutional: General: She is not [...] Chronic heart failure with preserved ejection fraction ([facility]) - Basic Metabolic Panel; Future - CBC auto differential; Future - TSH with Reflex; Future - reviewed the notes from the recent admission to the. -medication had been changed. Repeat lab as above, and adjust medications as needed to maintain heart failure control without dehydration and kidney injury. Bipolar disorder in partial remission, most recent episode unspecified type ([facility]) -patient with longstanding mental health issues including [...] all these medications. 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 ([facility]) -previous CABG -currently aspirin 81 mg daily, atorvastatin and beta-georgi in the form of propanolol [place] -no changes in current regimen BMI 40.0-44.9, adult ([facility]) .- Patient extremely overweight -reviewed need to [...] of medications as above documented in this encounterSelect [facility] [place]-2024 Miscellaneous Notes* Telephone Encounter - Maryellen HuertasGLORIA - 05/18/2023 12:35 PM EST Patient called and stated that she was recently discharged from [facility] on 05/15/2023.Patient stated that she was in the hospital from 04/13/2023 - 04/29/2023, which she was then placedat [place] due to being on a ventilator. Patient [...] GLORIA Scott - 05/18/2023 12:35 PM EST Can Line Operator contacted patient and informed her of medication [...] will go to ED. documented in this encounter[facility] [place]-2024 Telephone encounter Note* Telephone Encounter - GLORIA Scott - 05/18/2023 12:35 PM EST Patient called and stated that she was recently discharged from [facility] on 05/15/2023.Patient stated that she was in the hospital from 04/13/2023 - 04/29/2023, which she was then placedat [place] due to being on a ventilator. Patient [...] with BMI 39 Please review and advise. [facility] [employer] [id number] Telephone encounter Note* Telephone Encounter - Grace Meadows DO - 05/18/2023 12:35 PM EST Rx sent for doxycycline x 10 days. Needs appt in clinic in May [facility] [employer] [id number] Telephone encounter Note* Telephone Encounter - GLORIA Scott - 05/18/2023 12:35 PM EST Can Line Operator contacted patient and informed her of medication [...] stated that she will go to ED. [facility]08-17-2023 Evaluation note* Encounter Date Diagnosis Assessment Notes Treatment Notes Treatment Clinical Notes Nov, Spinal stenosis of l umbar region, unspecified whether neurogenic claudication present (ICD-10 [...] shaky when she stands and walks but shehas not taken a good walk for over 2 years since her open heart surgery. I think this patient is severely deconditioned I had her standard machine stitcher my office for at least 10 minutes if not longer with absolutely no claudicatory symptoms whatsoever only back pain I think pain management is the best option for this patient they would like her to start with therapy I think that is a good thought. I will see her on an as-needed basis in the future. Nov,Inflammation of both sacroiliac joints (ICD-10 - M46.1) Nov,Trochanteric bursitis, left hip (ICD-10 - M70.62) Nov,ilateral low back pain, unspecified chronicity, unspecified whether sciatica present (ICD-10 - M54.50) [employer] Other evaluation noteNo assessment information available [facility] Work Phone: Evaluation note* Diagnosis Left [...] Tobacco use disorder documented [facility] [...] healing, subsequent encounter [facility] Diagnosis 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 Hx of hyperlipidemia [facility] Diagnosis Peripheral polyneuropathy [facility]* Diagnosis BONY (obstructive sleep apnea)- Primary Obstructive sleep apnea (adult) (pediatric) Hypoxemia associated with sleep documented [facility]* Diagnosis Closed wedge compression fracture of T6 vertebra with routine healing- Primary Acute pulmonary embolism without acute cor pulmonale, unspecified pulmonary embolism type ([facility]) Venous insufficiency of both lower extremities Chronic respiratory failure with hypoxia and hypercapnia ([facility]) Chronic heart failure with preserved ejection fraction ([facility]) Spinal stenosis of lumbar region with neurogenic claudication Peripheral polyneuropathy B12 deficiency [facility]* Diagnosis Chronic heart failure with preserved ejection fraction ([facility]) 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 documented [facility]* Diagnosis Closed wedge compression fracture of T6 vertebra with routine healing [facility]* Diagnosis Closed wedge compression fracture of T6 vertebra with routine healing- Primary Acute pulmonary embolism without acute cor pulmonale, unspecified pulmonary embolism type ([facility]) Spinal stenosis of lumbar region with neurogenic claudication documented [facility]* Diagnosis Gastro-esophageal reflux disease without esophagitis documented [facility]* Diagnosis Spinal stenosis of lumbar region with neurogenic claudication- Primary [facility] Diagnosis Closed wedge compression fracture of T6 vertebra with routine healing [facility] Diagnosis Chronic heart failure with preserved ejection fraction ([facility])- Primary Bipolar disorder in partial remission, most recent episode unspecified type ([facility]) 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 ([facility]) BMI 40.0-44.9, adult ([facility]) BONY treated with BiPAP [facility] Diagnosis Flu-like symptoms- Primary Community acquired pneumonia, unspecified laterality Chronic heart failure with preserved ejection fraction ([facility]) Community acquired pneumonia, unspecified laterality Chronic heart failure with preserved ejection fraction ([facility]) [facility] Diagnosis Shortness of breath Chronic heart failure with preserved ejection fraction ([facility]) [facility] Diagnosis BONY treated with BiPAP- Primary Chronic obstructive pulmonary disease, unspecified COPD type ([facility]) Shortness of breath Cigarette nicotine dependence in remission [facility] Diagnosis Venous insufficiency of both lower extremities- Primary Chronic heart failure with preserved ejection fraction ([facility]) Acute pulmonary embolism without acute cor pulmonale, unspecified pulmonary embolism type ([facility]) B12 deficiency [facility] Diagnosis Fibromyalgia syndrome Unspecified myalgia and myositis documented [facility] Diagnosis Fibromyalgia syndrome- Primary Unspecified myalgia and myositis Stage 3a chronic kidney disease ([facility]) BONY treated with BiPAP Chronic heart failure with preserved ejection fraction ([facility]) Obesity (BMI 30-39.9) [facility] Diagnosis Chronic respiratory failure with hypoxia and hypercapnia ([facility])- Primary COPD exacerbation ([facility]) Obstructive chronic bronchitis with exacerbation Acute respiratory failure with hypoxia and hypercapnia ([facility]) Hypoxia Hypoxemia Chronic respiratory failure with hypoxia and hypercapnia ([facility]) Bipolar 2 disorder, major depressive episode ([facility]) Essential hypertension Unspecified essential hypertension 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 ([facility]) [facility] Diagnosis Unilateral groin pain, right- Primary Spinal stenosis of lumbar region with neurogenic claudication Chronic respiratory failure with hypoxia and hypercapnia ([facility]) Chronic heart failure with preserved ejection fraction ([facility]) BONY treated with BiPAP Bipolar disorder in partial remission, most recent episode unspecified type ([facility]) [facility] Diagnosis BONY treated with BiPAP [facility]* Diagnosis Spinal stenosis of lumbar region with neurogenic claudication documented [facility]* Diagnosis Chronic respiratory failure with hypoxia and hypercapnia (CMS-HCC)- Primary BONY treated with BiPAP Spinal stenosis of lumbar region with neurogenic claudication Chronic heart failure with preserved ejection fraction (CMS-HCC) [facility]* Diagnosis Chronic heart failure with preserved ejection fraction (CMS-HCC) [facility]* Diagnosis Spinal stenosis of lumbar region with neurogenic claudication documented [facility]* Diagnosis Chronic heart failure with preserved ejection fraction (CMS-HCC) documented [facility]* Diagnosis Chronic heart failure with preserved ejection fraction (CMS-HCC) [facility]* Diagnosis 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 (CMS-HCC)- Primary [facility]* Diagnosis IFG (impaired fasting glucose)- Primary Peripheral polyneuropathy Stage 3a chronic kidney disease (CMS-HCC) Chronic heart failure with preserved ejection fraction (CMS-HCC) 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 ([facility]) [facility]* Diagnosis Gastro-esophageal reflux disease without esophagitis documented [facility]* Diagnosis Contusion of lower leg, unspecified laterality, initial encounter- Primary [facility]* Diagnosis IFG (impaired fasting glucose)- Primary Chronic obstructive pulmonary disease, unspecified COPD type (CMS-HCC) Stage 3a chronic kidney disease (CMS-HCC) Chronic respiratory failure with hypoxia and hypercapnia (CMS-HCC) Chronic heart failure with preserved ejection fraction (CMS-HCC) Bipolar 2 disorder, major depressive episode ([facility]) BMI 40.0-44.9, adult ([facility]) 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 (CMS-HCC) B12 deficiency Peripheral polyneuropathy Arthritis of left sacroiliac joint (CMS-HCC) [facility] Diagnosis Chronic heart failure with preserved ejection fraction (CMS-HCC) 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 documented [facility]* Diagnosis Gastro-esophageal reflux disease without esophagitis documented [facility]* Diagnosis Chronic heart failure with preserved ejection fraction (CMS-HCC)- Primary 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 Hx of CABG Postsurgical aortocoronary bypass status [facility] Diagnosis Chronic obstructive pulmonary disease, unspecified COPD type ([facility])- Primary Chronic respiratory failure with hypoxia and hypercapnia ([facility]) BONY (obstructive sleep apnea) Obstructive sleep apnea (adult) (pediatric) [facility] Diagnosis Cervicogenic headache- Primary Headache Orthostatic hypotension Chronic heart failure with preserved ejection fraction ([facility]) Fibromyalgia syndrome Unspecified myalgia and myositis documented [facility]* Diagnosis Peripheral polyneuropathy Cervicogenic headache Headache documented [facility]* Diagnosis Peripheral polyneuropathy documented [facility]* Diagnosis Chronic heart failure with preserved ejection fraction (CMS-HCC)- Primary Pulmonary hypertension ([facility]) Other chronic pulmonary heart diseases Nonrheumatic tricuspid valve regurgitation Essential hypertension Unspecified essential hypertension 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 History of four vessel coronary artery bypass graft NSTEMI (non-ST elevated myocardial infarction) ([facility]) Acute myocardial infarction, subendocardial infarction, episode of care unspecified [facility]* Diagnosis Chronic heart failure with preserved ejection fraction (CMS-HCC)- Primary Essential hypertension Unspecified essential hypertension Pulmonary hypertension ([facility]) Other chronic pulmonary heart diseases Nonrheumatic tricuspid valve regurgitation 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 History of four vessel coronary artery bypass graft documented [facility]* Diagnosis Microcytic anemia- Primary Unspecified iron deficiency anemia Gastro-esophageal reflux disease without esophagitis Stage 3a chronic kidney disease ([facility]) Spinal stenosis of lumbar region with neurogenic claudication documented in [facility]* Diagnosis 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 documented [facility]* Diagnosis Chronic diastolic heart failure (CMS-HCC)- Primary Chronic diastolic heart failure Pulmonary hypertension (CMS-HCC) Other chronic pulmonary heart diseases Nonrheumatic tricuspid valve regurgitation [facility] Diagnosis Chronic heart failure with preserved ejection fraction (CMS-HCC)- Primary [facility] N[facility] - Reported* Type Description Date Medical History alcoholism Medical HistoryArthritisMedical HistoryemphysemaMedical Historygall bladder diseaseMedical Historyheart diseaseMedical Historyhigh cholesterolMedical Historymigraine headachesMedical HistoryobesityMedical HistorypneumoniaMedical Historypsychiatric disorderMedical Historychronic depressionMedical History anxietySurgical HistoryC sectionSurgical HistorytonsillectomySurgical History gall bladderSurgical Historybreast lump removed [id number] Historyopen heart surgeryHospitalization Historysee above surg. hx. [employer] Other Hospital Discharge instructionsNot on filedocumented in [...] [facility]ructionsNot on filedocumented in this [facility]ructionsNot on filedocumented in this encounter[facility] SystemInstructionsNot on filedocumented in this encounterPro[facility] SystemInstructionsNot on filedocumented in this encounterPro[facility] SystemInstructionsNot on filedocumented in this encounterPro[facility] SystemInstructions* Attachments The following attachments cannot be sent through Care Everywhere. * Esophagitis (Turkish) * Patellar Tendinopathy (Turkish) documented in this [facility] SystemInstructionsNot on file documented in this encounterPro[facility] SystemInstructionsNot on file documented in this encounterPro[facility] SystemInstructionsNot on file documented in this encounterPro[facility] SystemInstructionsNot on file documented in this [facility]ructionsNot on file [facility] Purpose Family History No Family History Records FoundNo Family History Records FoundNo Family History Records FoundNo Family History Records FoundNo Family History Records FoundNo Family History Records FoundNo Family History Records FoundNo Family History Records Found Advance Directives No Advanced Directives Records Found Advance Directive Response Recorded Date/ Time Advance Directives No December 3:14pm TypeDate RecordedPatient RepresentativeExplanationDurable Power of Cotton [employer] 05/15/2023 8:14 AMLiving Will12/19/2021 11:54 AMLIVING WILLLiving Will11/22/2021 1:59 PMDurable Power of Attorney11/22/2021 1:58 PMDate ActivatedDate Inactivated Comments08/28/2023 4:38 AM08/29/2023 11:50 AMDate ActivatedDate InactivatedComments 08/28/2023 4:09 AM08/28/2023 4:38 AMDate ActivatedDate InactivatedComments07/25/2023 9:03 PM07/27/2023 4:44 PMDate ActivatedDate InactivatedComments05/28/2023 1:53 AM 05/28/2023 12:27 PMDate ActivatedDate LjpobnbxsmyDztaoyqa47/19/2023 10:09 PM 04/29/2023 6:44 PMDate ActivatedDate InactivatedComments07/25/2023 9:03 PM07/27/2023 4:44 PMDate ActivatedDate InactivatedComments05/28/2023 1:53 AM05/28/2023 12:27 PM Date ActivatedDate WokdujsnfnzGboeovky75/19/2023 10:09 PM04/29/2023 6:44 PMDate ActivatedDate InactivatedComments08/06/2020 11:59 AM08/23/2020 3:53 PMDate ActivatedDate InactivatedComments08/06/2020 11:59 AM08/06/2020 11:59 AMTypeDate RecordedPatient RepresentativeExplanationDurable Power of Attorney05/15/2023 8:14 AMLiving Will12/19/2021 11:54 AMLIVING WILLLiving Will11/22/2021 1:59 PMDurable Power of Attorney11/22/2021 1:58 PMDate ActivatedDate InactivatedComments 07/25/2023 9:03 PM07/27/2023 4:44 PMDate ActivatedDate InactivatedComments05/28/2023 1:53 AM05/28/2023 12:27 PMDate ActivatedDate KcdcxdghyubCfqvdebv51/19/2023 10:09 PM04/29/2023 6:44 PMDate ActivatedDate InactivatedComments08/06/2020 11:59 AM 08/23/2020 3:53 PMDate ActivatedDate InactivatedComments08/06/2020 11:59 AM 08/06/2020 11:59 AMCode StatusDate ActivatedDate InactivatedCommentsFull Code 04/14/2023 10:09 PM04/29/2023 6:44 PMCode StatusDate ActivatedDate Inactivated CommentsFull Code08/06/2020 11:59 AM08/23/2020 3:53 PMFull Code08/06/2020 11:59 AM 08/06/2020 11:59 AMFull Code01/09/2020 6:57 AM01/10/2020 10:47 PMCode StatusDate ActivatedDate InactivatedCommentsFull Code05/28/2023 1:53 AM05/28/2023 12:27 PMCode StatusDate ActivatedDate InactivatedCommentsFull Code04/14/2023 10:09 PM04/29/2023 6:44 PMFull Code4 11:59 AM08/23/2020 3:53 PMFull Code08/06/2020 11:59 AM 08/06/2020 11:59 AMFull Code01/09/2020 6:57 AM01/10/2020 10:47 PMCode StatusDate ActivatedDate InactivatedCommentsFull Code05/28/2023 1:53 AM05/28/2023 12:27 PMCode StatusDate ActivatedDate InactivatedCommentsFull Code04/14/2023 10:09 PM04/29/2023 6:44 PMFull Code4 11:59 AM08/23/2020 3:53 PMFull Code08/06/2020 11:59 AM 08/06/2020 11:59 AMFull Code01/09/2020 6:57 AM01/10/2020 10:47 PMCode StatusDate ActivatedDate InactivatedCommentsFull Code07/25/2023 9:03 PM07/27/2023 4:44 PMCode StatusDate ActivatedDate InactivatedCommentsFull Code05/28/2023 1:53 AM05/28/2023 12:27 PMFull Code04/14/2023 10:09 PM04/29/2023 6:44 PMFull Code08/06/2020 11:59 AM 08/23/2020 3:53 PMFull Code08/06/2020 11:59 AM08/06/2020 11:59 AMDate ActivatedDate InactivatedComments08/28/2023 4:38 AM08/29/2023 11:50 AMDate ActivatedDate InactivatedComments08/28/2023 4:09 AM08/28/2023 4:38 AMDate ActivatedDate InactivatedComments07/25/2023 9:03 PM07/27/2023 4:44 PMDate ActivatedDate InactivatedComments05/28/2023 1:53 AM05/28/2023 12:27 PMDate ActivatedDate PnwjsedctxiYdxdduru94/19/2023 10:09 PM04/29/2023 6:44 PMCode StatusDate Activated Date InactivatedCommentsFull Code07/25/2023 9:03 PM07/27/2023 4:44 PMCode Status Date ActivatedDate InactivatedCommentsFull Code05/28/2023 1:53 AM05/28/2023 12:27 PM Full Code04/14/2023 10:09 PM04/29/2023 6:44 PMFull Code08/06/2020 11:59 AM08/23/2020 3:53 PMFull Code08/06/2020 11:59 AM08/06/2020 11:59 AMTypeDate RecordedPatient RepresentativeExplanationDNR Physician Order12/03/2024 3:17 AMDNR Comfort Care 12/03/24Durable Power of Attorney05/15/2023 8:14 AMLiving Will12/19/2021 11:54 AM LIVING WILL & DPOALiving Will11/22/2021 1:59 PMDurable Power of Attorney11/22/2021 1:58 PMDate ActivatedDate InactivatedComments12/04/2024 9:11 AM12/04/2024 12:20 PM Date ActivatedDate InactivatedComments12/03/2024 3:16 AM12/03/2024 10:34 AMDate ActivatedDate InactivatedComments08/28/2023 4:38 AM08/29/2023 11:50 AMDate Activated Date InactivatedComments08/28/2023 4:09 AM08/28/2023 4:38 AMDate ActivatedDate InactivatedComments07/25/2023 9:03 PM07/27/2023 4:44 PM Chief Complaint and Reason for Visit Chief Complaint m54.50 Reason for Referral SpecialtyDiagnoses / ProceduresReferred By ContactReferred To Contact Diagnoses Chronic respiratory failure with hypoxia and hypercapnia (CMS-HCC) Procedures Follow-up with primary care provider Rajni Cardozo, [address] [place] [address] Referral IDStatusReasonStart DateExpiration DateVisits RequestedVisits [id number] Review/[id number] / ProceduresReferred By ContactReferred To Contact Procedures Adult diet Rajni Cardozo, [address] [place] [address] Referral IDStatusReasonStart DateExpiration DateVisits RequestedVisits [id number] Review/[id number] / ProceduresReferred By ContactReferred To [facility] Diagnoses Chronic heart failure with preserved ejection fraction (CMS-HCC) Rajni Cardozo, DO [address] [place] [address] [facility] [address] [place] [address] Phone: [phone] Fax: [phone] Referral IDStatusReasonStart DateExpiration DateVisits RequestedVisits [id number] Review Patient Preference /[id number] / ProceduresReferred By ContactReferred To Contact Diagnoses BONY treated with BiPAP Procedures Split Night Sleep Study Grace Meadows, DO [address] [address] Referral IDStatusReasonStart DateExpiration DateVisits RequestedVisits [id number] Review/[id number] / ProceduresReferred By ContactReferred To Contact Diagnoses BONY (obstructive sleep apnea) Hypoxemia associated with sleep Procedures Polysomnography 4 or more parameters with PAP titration Grace Meadows, DO [address] [address] Referral IDStatusReasonStart DateExpiration DateVisits RequestedVisits [id number] Review/[id number] / ProceduresReferred By ContactReferred To Contact Diagnoses Trigger point of left side of body Procedures Trigger Point Injection ([place] [address] [place] [address]): left gluteus tej [facility] [address] [place] [address] Referral IDStatusReasonStart DateExpiration DateVisits RequestedVisits [id number]/3/20243/[id number] / Procedures Referred By ContactReferred To ContactOrthopaedic Surgery Diagnoses Left shoulder pain, unspecified chronicity Procedures L Inj/Asp: L subacromial bursa Eusebia Huertas, [address] [facility] [address] [place] [address] Referral IDStatusReasonStart DateExpiration DateVisits RequestedVisits [id number]/1/[id number]/30/[id number] Additional Source Comments INFORMATION SOURCE (unrecogn ized section and content) DATE CREATED AUTHOR 02/03/2018 [facility] DATE CREATED AUTHOR AUTHOR'S ORGANIZ ATION 12/21/2022 [facility] DATE CREATED AUTHOR AUTHOR'S ORGANIZ ATION 05/03/2023 [facility] DATE CREATED AUTHOR AUTHOR'S ORGANIZ ATION 07/10/2024 [facility] DATE CREATED AUTHOR AUTHOR'S ORGANIZ ATION 09/24/2024 [facility] DATE CREATED AUTHOR AUTHOR'S ORGANIZ ATION 12/17/2024 [facility] DATE CREATED AUTHOR AUTHOR'S ORGANIZ ATION 02/18/2025 [facility] DATE CREATED AUTHOR AUTHOR'S ORGANIZ ATION 02/21/2025 [facility] Care Teams (unrecognized sec tion and content) Team Status: Active Member Role Status Dates Saqib Fowler PA-C Primary Care Provider Activ e Team Status: Inactive Member Role Status Dates Saqib Fowler PA-C Primary Care Provider Activ e [facility] MDA[facility] ProviderActiveTeam MemberRelationshipSpecialtyStart DateEnd Date Rajni Cardozo MD [address] [place] [address] PCP - GeneralInternal Medicine08/11/23Team MemberRelationshipSpecialtyStart Date End Date Rajni Cardozo MD [address] [place] [address] PCP - GeneralInternal Medicine08/11/23Team MemberRelationshipSpecialtyStart Date End Date Rajni Cardozo MD [address] [place] [address] PCP - GeneralInternal Medicine08/11/23Team MemberRelationshipSpecialtyStart Date End Date Rajni Cardozo MD [address] [place] [address] PCP - GeneralInternal Medicine08/11/23Team MemberRelationshipSpecialtyStart Date End Date Rajni Cardozo MD [address] [place] [address] PCP - GeneralInternal Medicine08/11/23Team MemberRelationshipSpecialtyStart Date End Date Rajni Cardozo MD [address] [place] [address] PCP - GeneralInternal Medicine08/11/23Team MemberRelationshipSpecialtyStart Date End Date Rajni Cardozo MD [address] [place] [address] PCP - GeneralInternal Medicine08/11/23Team MemberRelationshipSpecialtyStart Date End Date Rajni Cardozo MD [address] [place] [address] PCP - GeneralInternal Medicine08/11/23Team MemberRelationshipSpecialtyStart Date End Date Rajni Cardozo MD [address] [place] [address] PCP - GeneralInternal Medicine08/11/23Team MemberRelationshipSpecialtyStart Date End Date Rajni Cardozo DO [address] [place] [address] PCP - GeneralInternal Medicine12/17/23Team MemberRelationshipSpecialtyStart Date End Date Rajni Cardozo DO [address] [place] [address] PCP - GeneralInternal Medicine12/17/23Team MemberRelationshipSpecialtyStart Date End Date Rajni Cardozo DO [address] [place] [address] PCP - GeneralInternal Medicine07/01/23Team MemberRelationshipSpecialtyStart Date End Date Rajni Cardozo DO [address] [place] [address] PCP - GeneralInternal Medicine07/01/23Team MemberRelationshipSpecialtyStart Date End Date Rajni Cardozo DO [address] [place] [address] PCP - GeneralInternal Medicine07/01/23Team MemberRelationshipSpecialtyStart Date End Date Rajni Cardozo DO [address] [place] [address] PCP - GeneralInternal Medicine07/01/23Team MemberRelationshipSpecialtyStart Date End Date Rajni Cardozo DO [address] [place] [address] PCP - GeneralInternal Medicine08/24/23Team MemberRelationshipSpecialtyStart Date End Date Rajni Cardozo DO [address] [place] [address] PCP - GeneralInternal Medicine08/24/23Team MemberRelationshipSpecialtyStart Date End Date Rajni Cardozo DO [address] [place] [address] PCP - GeneralInternal Medicine08/24/23Team MemberRelationshipSpecialtyStart Date End Date No Pcp, [place] [address] PCP - GeneralFamily Dtbuyczc97/18/23Team MemberRelationshipSpecialtyStart Date End Date No Pcp, [place] [address] PCP - GeneralFamily Kiespjyf26/18/23Team MemberRelationshipSpecialtyStart Date End Date Obdulia Rajni Janae, DO [address] [place] [address] PCP - GeneralInternal Medicine08/24/23Team MemberRelationshipSpecialtyStart Date End Date Rajni Cardozo, DO [address] [place] [address] PCP - GeneralInternal Medicine08/24/23Team MemberRelationshipSpecialtyStart Date End Date Rajni Cardozo DO [address] [place] [address] PCP - GeneralInternal Medicine08/24/23Team MemberRelationshipSpecialtyStart Date End Date Rajni Cardozo DO [address] [place] [address] PCP - GeneralInternal Medicine08/24/23Team MemberRelationshipSpecialtyStart Date End Date No Pcp, [place] [address] PCP - GeneralFamily Wctnubfh95/18/23Team MemberRelationshipSpecialtyStart Date End Date Rajni Cardozo DO [address] [place] [address] PCP - GeneralInternal Medicine08/24/23Team MemberRelationshipSpecialtyStart Date End Date Rajni Cardozo DO [address] [place] [address] PCP - GeneralInternal Medicine08/24/23Team MemberRelationshipSpecialtyStart Date End Date No Pcp, [place] [address] PCP - GeneralFamily Zmuhpybz18/18/23Team MemberRelationshipSpecialtyStart Date End Date No Pcp, [place] [address] PCP - GeneralFamily Fgnouwmw74/18/23Team MemberRelationshipSpecialtyStart Date End Date Rajni Cardozo, DO [address] [place] [address] PCP - GeneralInternal Medicine08/24/23Team MemberRelationshipSpecialtyStart Date End Date No Pcp, [place] [address] PCP - GeneralFamily Crbwipbd82/18/23Team MemberRelationshipSpecialtyStart Date End Date VickyumairRajni Janae DO [address] [place] [address] PCP - GeneralInternal Medicine07/01/23Team MemberRelationshipSpecialtyStart Date End Date LukasRajni gonsalez DO [address] [place] [address] PCP - GeneralInternal Medicine07/01/23Team MemberRelationshipSpecialtyStart Date End Date Rajni Cardozo DO [address] [place] [address] PCP - GeneralInternal Medicine08/24/23Team MemberRelationshipSpecialtyStart Date End Date Rajni Cardozo DO [address] [place] [address] PCP - GeneralInternal Medicine08/24/23Team MemberRelationshipSpecialtyStart Date End Date Rajni Cardozo DO [address] [place] [address] PCP - GeneralInternal Medicine07/01/23Team MemberRelationshipSpecialtyStart Date End Date Rajni Cardozo DO [address] [place] [address] PCP - GeneralInternal Medicine07/01/23Team MemberRelationshipSpecialtyStart Date End Date Rajni Cardozo, DO [address] [facility] [place] [address] PCP - GeneralInternal Medicine12/17/23Team MemberRelationshipSpecialtyStart Date End Date Rajni Cardozo, DO [address] [place] [address] PCP - GeneralInternal Medicine12/17/23Team MemberRelationshipSpecialtyStart Date End Date Rajni Cardozo DO [address] [place] [address] PCP - GeneralInternal Medicine07/01/23Team MemberRelationshipSpecialtyStart Date End Date Rajni Cardozo, DO [address] [place] [address] PCP - GeneralInternal Medicine12/17/23Team MemberRelationshipSpecialtyStart Date End Date Rajni Cardozo DO [address] [place] [address] PCP - GeneralInternal Medicine12/17/23Team MemberRelationshipSpecialtyStart Date End Date Rajni Cardozo, DO [address] [place] [address] PCP - GeneralInternal Medicine12/17/23Team MemberRelationshipSpecialtyStart Date End Date Rajni Cardozo, DO [address] [place] [address] PCP - GeneralInternal Medicine12/17/23Team MemberRelationshipSpecialtyStart Date End Date Rajni Cardozo DO [address] [place] [address] PCP - GeneralInternal Medicine12/17/23Team MemberRelationshipSpecialtyStart Date End Date Rajni Cardozo DO [address] [place] [address] PCP - GeneralInternal Medicine12/17/23Team MemberRelationshipSpecialtyStart Date End Date Rajni Cardozo DO [address] [place] [address] PCP - GeneralInternal Medicine12/17/23Team MemberRelationshipSpecialtyStart Date End Date Rajni Cardozo DO [address] [place] [address] PCP - GeneralInternal Medicine12/17/23Team MemberRelationshipSpecialtyStart Date End Date Rajni Cardozo DO [address] [place] [address] PCP - GeneralInternal Medicine12/17/23Team MemberRelationshipSpecialtyStart Date End Date Rajni Cardozo MD PCP - GeneralInternal Medicine08/11/23Team MemberRelationshipSpecialtyStart Date End Date Rajni Cardozo MD PCP - GeneralInternal Medicine08/11/23Team MemberRelationshipSpecialtyStart Date End Date Vickyumair Rajni Cardoso, DO [address] [place] [address] PCP - GeneralInternal Medicine12/17/23Team MemberRelationshipSpecialtyStart Date End Date Vickyumair Rajni Janae, DO [address] [place] [address] PCP - GeneralInternal Medicine12/17/23Team MemberRelationshipSpecialtyStart Date End Date Rajni Cardozo DO [address] [place] [address] PCP - GeneralInternal Medicine12/17/23Team MemberRelationshipSpecialtyStart Date End Date Rajni Cardozo, DO [address] [place] [address] PCP - GeneralInternal Medicine12/17/23Team MemberRelationshipSpecialtyStart Date End Date Rajni Cardozo, DO [address] [place] [address] PCP - GeneralInternal Medicine12/17/23Team MemberRelationshipSpecialtyStart Date End Date Rajni Cardozo, DO [address] [place] [address] PCP - GeneralInternal Medicine12/17/23Team MemberRelationshipSpecialtyStart Date End Date Rajni Cardozo MD PCP - GeneralInternal Medicine08/11/23Team MemberRelationshipSpecialtyStart Date End Date Rajni Cardozo DO [address] [place] [address] PCP - GeneralInternal Medicine12/17/23Team MemberRelationshipSpecialtyStart Date End Date Rajni Cardozo DO [address] [place] [address] PCP - GeneralInternal [facility]12/17/23Team MemberRelationshipSpecialtyStart Date End Date Rajni Cardozo DO [address] [place] [address] PCP - GeneralInternal Medicine12/17/23Team MemberRelationshipSpecialtyStart Date End Date Rajni Cardozo DO [address] [place] [address] PCP - GeneralInternal Medicine12/17/23 Goals (unrecognized section and content) Goals may be documented in a n alternate sectionNo Information REASON FOR VISIT (unrecogniz ed section and content) ReasonCommentsPainReasonCommentsChronic hypoxic respiratory failureConsultation ReasonCommentsFollow-upReasonOnset DateCommentsMed [id number] CommentsMed RefillReasonOnset DateCommentsMed [id number] Date CommentsSleep Lab4Pap OrderReasonCommentscompression fractor and leakage in legsReasonOnset DateCommentsMed [id number] month recheckReasonOnset DateCommentsMed [id number] Patient ReasonCommentsCoughCongestion,cough yellow, 1 weekReasonCommentsHospital Follow-upCOVID Pneumonia - Early AprilXR: 04/28/2023 and 05/27/2023 ReasonOnset DateCommentsSleep Lab06/25/2023Split NightReasonCommentsFollow-up1 monthReasonCommentsHyperlipidemiaHypertensionReasonCommentsShortness of Breath SpecialtyDiagnoses / ProceduresReferred By ContactReferred To Contact Diagnoses Shortness of breath Hypoxia COPD exacerbation (CMS-HCC) Acute respiratory failure with hypoxia and hypercapnia (CMS-HCC) Rajni Gimenez MD [address] [place] [address] Referral IDStatusReasonStart DateExpiration DateVisits RequestedVisits [id number] / ProceduresReferred By ContactReferred To Contact Diagnoses BONY (obstructive sleep apnea) Hypoxemia associated with sleep Procedures Polysomnography 4 or more parameters with PAP titration [place], [address] [address] Referral IDStatusReasonStart DateExpiration DateVisits RequestedVisits [id number] care SpecialtyDiagnoses / ProceduresReferred By ContactReferred To Contact Diagnoses BONY treated with BiPAP Procedures Split Night Sleep Study [place], [place] [address] [address] Referral IDStatusReasonStart DateExpiration DateVisits RequestedVisits [id number] HyperlipidemiaReasonOnset DateCommentsMed [id number] Date CommentsMed [id number] Change RequestReasonComments Follow-upEST PT F/U 4 MS L/S RDGReasonCommentsCOPDReasonCommentsControlled SubstanceReasonOnset DateCommentsMed Aswyim6607/15/2024ReasonCommentsFollow-upEST PT F/U 6 MS L/S TMPReasonCommentsSleep Apnea6 month follow upCOPD6 month follow upReasonCommentsHypertensionHyperlipidemiaControlled medications, Headaches for months nowReasonCommentsswelling legs/feetReasonCommentsBP/ ok , Headache, right knee hurting, swelling. 2 weeksQuestion about lasixReasonCommentsCongestive Heart FailureFollow-upFatigueShortness of BreathEdemaDizzinessNauseaReasonOnset DateCommentsBMP lab work11/30/2024ReasonOnset DateCommentsTransition Of Care 12/08/2024ReasonCommentsTCM/ Respiratory FailureReasonCommentsCongestive Heart FailureFollow-up Scheduled Active and Recently Administ ered Medications (unrecognized section and content) Medication Order//04/2023 ARIPiprazole (ABILIFY) tablet 15 mg (CANCELED) 15 mg, oral, Bedtime, First dose on 07/25/23 at 2200, Look-alike/sound-alike medication - verifyindication for use. * 2200 (Not Given - Provider: Lissette Mathews RN - Reason: Medication not available) * 0 (Given - Provider: Mary Cee RN) ARIPiprazole (ABILIFY) tablet 15 mg 15 mg, oral, Daily, First dose on 07/27/23 at 2100, Look-alike/sound-alike medication - verify indication for use. aspirin EC tablet 81 mg 81 mg, oral, Daily, First dose on 07/26/23 at 0900, Do not crush or chew. * 0814 (Given - Provider: Gale Chiang RN) * 0818 (Given - Provider: Gale Chiang RN) atorvastatin (LIPITOR) tablet 80 mg 80 mg, oral, Daily, First dose on 07/26/23 at 0900, Look-alike/sound-alike medication - verify indication for use. * 0815 (Given - Provider: Gale Chiang RN) * 0817 (Given - Provider: Gale Chiang RN) cefTRIAXone (ROCEPHIN) IVPB 1000 mg/50 mL in iso-osmotic dextrose (20 mg/mL premix) (COMPLETED) 1,000 mg, intravenous, at 100 mL/hr, Administer over 30 Minutes, Once, On 07/25/23 at 1710, For 1 dose, Look-alike/sound-alike medication - verify indication for use. Do not co-administer with calcium-containing solutions such as Lactated Ringers., Indication: Community-acquired pneumonia * 1804 (New Bag - Provider: Vicki Golden RN) * 1832 (Stop Bag - Provider: Vicki Golden RN) clonazePAM (KlonoPIN) tablet 0.5 mg 0.5 mg, oral, 2 times daily, First dose on 07/26/23 at 1000, Look-alike/sound-alike medication -verify indication for use. * 0941 (Given - Provider: Gale Chiang RN) * 2140 (Given - Provider: Mary Cee RN) * 0818 (Given - Provider: Gale Chiang RN) doxycycline (VIBRAMYCIN) capsule 100 mg 100 mg, oral, 2 times daily, First dose on 07/25/23 at 2000, May give with meals to decrease GI upset. Administer with at least 8 ounces of water and have patient sit up for at least 30 minutes after taking to reduce the risk of esophageal irritation and ulceration., Indication: Community-acquired pneumonia * 2202 (Given - Provider: Lissette Mathews RN) * 0914 (Given - Provider: Gale Chiang, VICTOR M) * 2140 (Given - Provider: Mary Cee, VICTOR M) * 0825 (Given - Provider: Gale Chiang, VICTOR M) empagliflozin (JARDIANCE) tablet 10 mg 10 mg, oral, Daily, First dose on 07/26/23 at 0900 * 0915 (Given - Provider: Gale Chiang, VICTOR M) * 0826 (Given - Provider: Gale Chiang, VICTOR M) enoxaparin (LOVENOX) syringe 40 mg 40 mg, subcutaneous, Daily, First dose on 07/26/23 at 0600, Look-alike/sound-alike medication - verify indication for use. * 0611 (Given - Provider: Lissette Mathews RN) * 0604 (Given - Provider: Mary Cee RN) furosemide (LASIX) injection 40 mg (COMPLETED) 40 mg, intravenous, Once, On 07/25/23 at 2115, For 1 dose, Look-alike/sound-alike medication - verify indication for use. IVP rate = 20 mg/min * 2159 (Given - Provider: Lissette Mathews RN) gabapentin (NEURONTIN) capsule 200 mg 200 mg, oral, 3 times daily, First dose on 07/25/23 at 2200, Look-alike/sound-alike medication -verify indication for use. * 2152 (Given - Provider: Lissette Mathews RN) * 0610 (Given - Provider: Lissette Mathews RN) * 1327 (Given - Provider: Gale Chiang RN) * 2140 (Given - Provider: Mary Cee RN) * 0604 (Given - Provider: Mary Cee RN) * 1320 (Given - Provider: Gale Chiang RN) ipratropium-albuteroL (DUONEB) 0.5 mg-3 mg(2.5 mg base)/3 mL nebulizer solution 3 mL (COMPLETED) 3 mL, nebulization, Once, On 07/25/23 at 1710, For 1 dose, Implement INPATIENT/ED BronchodilatorClinical Practice Guidelines? Yes, Document: \[email or web address]\epic\EPIC_Reference\Orders\Respiratory Care Guidelines\CPG Bronchodilator 2020.pdf * 1731 (Given - Provider: Vicki Henry RCP) ipratropium-albuteroL (DUONEB) 0.5 mg-3 mg(2.5 mg base)/3 mL nebulizer solution 3 mL (COMPLETED) 3 mL, nebulization, Once, On 07/25/23 at 1835, For 1 dose, Implement INPATIENT/ED BronchodilatorClinical Practice Guidelines? Yes, Document: \[email or web address]\epic\EPIC_Reference\Orders\Respiratory Care Guidelines\CPG Bronchodilator 2020.pdf * 1933 (Given - Provider: Joan Malone RCP) ipratropium-albuteroL (DUONEB) 0.5 mg-3 mg(2.5 mg base)/3 mL nebulizer solution 3 mL 3 mL, nebulization, Every 6 hours, First dose on 07/25/23 at 5, Implement INPATIENT/ED Bronchodilator Clinical Practice Guidelines? Yes, Document: \[email or web address]\epic\EPIC_Reference\Orders\Respiratory Care Guidelines\CPG Bronchodilator 2020.pdf * 2114 (Not Given - Provider: Joan Malone RCP - Reason: Other - Comment: Given at 1933) * 0148 (Given - Provider: Joan Malone RCP) * 0721 (Given - Provider: Christy Andrew RCP) * 1431 (Given - Provider: Christy Andrew RCP) * 1923 (Given - Provider: Joan Malone RCP) * 0126 (Given - Provider: Joan Malone RCP) * 0802 (Given - Provider: Rebecca Martinez RCP) * 1400 (Due) lamoTRIgine (LaMICtal) tablet 100 mg 100 mg, oral, Daily, First dose on 07/26/23 at 0900, Look-alike/sound-alike medication - verify indication for use. * 0915 (Given - Provider: Gale Chiang RN) * 0826 (Given - Provider: Gale Chiang RN) methylPREDNISolone sod suc(PF) (Solu-MEDROL) injection 40 mg (CANCELED) 40 mg, intravenous, Every 12 hours scheduled, First dose on 07/25/23 at 2115, May alter blood glucose or insulin requirements. Look-alike/sound-alike medication - verify indication for use. * 2156 (Given - Provider: Lissette Mathews RN) * 0811 (Given - Provider: Gale Chiang RN) * 2140 (Given - Provider: Mary Cee RN) * 0819 (Given - Provider: Gale Chiang RN) pantoprazole (PROTONIX) EC tablet 40 mg 40 mg, oral, Every morning before breakfast, First dose on Thu07/26/23 at 0700, Look-alike/sound-alike medication - verify indication for use. If patient is receiving enteral feeding, consider alternative PPI or continue IV pantoprazole until the delayed-release tablet can be taken orally, Indication: GERD * 0610 (Given - Provider: Lissette Mathews RN) * 0604 (Given - Provider: Mary Cee, VICTOR M) potassium chloride (KLOR-CON M 20) CR tablet 20 mEq 20 mEq, oral, Daily, First dose on Thu07/26/23 at 0900, Do not crush or chew. * 0813 (Given - Provider: Gale Chiang, VICTOR M) * 0818 (Given - Provider: Gale Chiang, VICTOR [...] medication - verify indication for use. * 2212 (Not Given - Provider: Lissette Mathews RN - Reason: See Provider Order) * 0818 (Given - Provider: Gale Chiang RN) sodium chloride 0.9 % flush 3 mL 3 mL, intravenous, Every 12 hours scheduled, First dose on 07/25/23 at 2115 * 2201 (Given - Provider: Lissette Mathews RN) * 0816 (Given - Provider: Gale Chiang, VICTOR M) * 2141 (Given - Provider: Mary Cee, VICTOR M) * 0824 (Given - Provider: Gale Chiang, VICTOR M) spironolactone (ALDACTONE) tablet 25 mg 25 mg, oral, Daily, First dose on Thu07/26/23 at 0900 * 0814 (Given - Provider: Gale Chiang, VICTOR M) * 0818 (Given - Provider: Gale Chiang RN) torsemide (DEMADEX) tablet 80 mg 80 mg, oral, Daily, First dose on 07/26/23 at 1000 * 1014 (Given - Provider: Gale Chiang RN) * 0825 (Given - Provider: Gale Chiang RN) venlafaxine XR (EFFEXOR XR) 24 hr capsule 225 mg 225 mg, oral, Daily with breakfast, First dose on 07/26/23 at 1000, Look-alike/sound-alike medication - verify indication for use. Do not crush or chew. * 1014 (Given - Provider: Gale Chiang RN) * 0746 (Given - Provider: Gale Chiang RN) Medication Order07/24///04/2023 acetaminophen (TYLENOL) tablet 650 mg 650 mg, oral, Every 4 hours PRN, headaches, moderate pain - pain scale 4-6, Starting on 07/25/23at 2100 * 0847 (Given - Provider: Gale Chiang RN) * 2140 (Given - Provider: Mary Cee RN) * 0604 (Given - Provider: Mary Cee RN) sodium chloride 0.9 % flush 3 mL 3 mL, intravenous, As needed, line care, before and after each intermittent use, Starting on 07/25/23 at 2058 sodium chloride 0.9 % flush bag 25 mL, intravenous, at 100 mL/hr, Administer over 15 Minutes, As needed, line care, line care afterIVPB administration, Starting on 07/25/23 at 2058 sodium [...] BE BASED ON THE PRIMARY CLINICAL RECORDS. [facility]. provides no warranty or guarantee of the accuracy or completeness of information in this document.
== END 2025-02-23 10:42 | disposition home or self-care (01) ==
LOC: PM 10:41
PROVIDERS: PCP Internal Medicine; Visit Provider Nurse Practitioner
DX: G58.0 Intercostal neuropathy (principal); M48.062 Spinal stenosis, lumbar region with neurogenic claudication; M47.816 Spondylosis without myelopathy or radiculopathy, lumbar region
CPT/HCPCS: G0463

== ENCOUNTER 2025-03-15 14:31 | Outpatient (OUT) | payer MEDICARE, MEDICAID, SELFPAY ==
--- OUTSIDE RECORDS SUMMARY | 2025-03-15 14:37 | XMS_ITS | CCD ---
Author Organization [facility]ini[facility] Care Team Providers Care Sleeping Car Conductor Name Role Phone Hercher, Nadege L Unavailable [...] NELSON Consulting Unavailable GENIEMARANDA Consulting Unavailable Rajni Steiner MD Primary Care Provider [phone] Yusunshine CABRERA, Rajni Cardoso Primary Care Provider [...] YUHAS, RAJNI L Primary Care Unavailable Rajni Steiner DO Primary Care Provider Rajni Steiner MD Primary Care Provider SYDNIE GUERRERO Attending Unavailable ALEKSANDAREUSEBIA VASQUEZ Attending Unavailable ALEKSANDAREUSEBIA Referring Unavailable ALEKSANDAREUSEBIA ACOSTA Attending Unavailable ALEKSANDAREUSEBIA Referring Unavailable ALEKSANDAREUSEBIA Attending Unavailable ALEKSANDAREUSEBIA Attending Unavailable ALEKSANDAREUESBIA Referring Unavailable ALEKSANDAREUSEBIA Attending Unavailable SYDNIE GUERRERO [...] Care Unavailable Yuhas DORajni Primary Care Provider Dk MIJARES, Andrius Zee Attending Unavailable Dk MIJARES, Andrius Saadia Attending Unavailable Dk MIJARES, Andrius Alexanderytheather Attending Unavailable Dk MIJARES, Andrius Alexanderytheather Attending Unavailable Dk MIJARES, Andrius Vytheather Attending Unavailable Dk MIJARES, Andrius Alexanderytheather Attending Unavailable MYRIAM PEACOCK Attending Unavailable YUHAS, RAJNI Janae Referring Unavailable YUHAS, RAJNI L Primary Care Unavailable YUHAS, RAJNI L Referring Unavailable YUHAS, RAJNI L Primary Care Unavailable YUHAS, RAJNI L Referring Unavailable YUHAS, RAJNI L Primary Care Unavailable ODESSA COOK Attending Unavailable VICKYSRAJNI Referring Unavailable YUHAS, RAJNI Cardoso Primary Care Unavailable YUHAS, RAJNI Cardoso Attending Unavailable YUHAS, RAJNI L Referring Unavailable YUHAS, RAJNI L Primary Care Unavailable ODESSA COOK Referring Unavailable YUHAS, RAJNI L Primary Care Unavailable YUHAS, RAJNI L Primary Care Unavailable YUHAS, RAJNI L Admitting Unavailable YUHAS, RAJNI L Attending Unavailable YUHAS, RAJNI L Primary Care Unavailable YUHAS, RAJNI L Admitting Unavailable YUHAS, RAJNI L Attending Unavailable ODESSA COOK Referring Unavailable YUHAS, RAJNI L Primary Care Unavailable YUHAS, RAJNI L Referring Unavailable YUHAS, RAJNI L Primary Care Unavailable YUHAS, RAJNI L Referring Unavailable YUHAS, RAJNI L Primary Care Unavailable ODESSA COOK Attending Unavailable ODESSA COOK Referring Unavailable YUHAS, RAJNI L Primary Care Unavailable YUHAS, RAJNI L Referring Unavailable YUHASRAJNI Primary Care Unavailable CYNTHIA BUCHANAN Referring Unavailable VICKYSRAJNI Primary Care Unavailable VICKYSRAJNI Referring Unavailable VICKYS, RAJNI Cardoso Primary Care Unavailable VICKYSRAJNI Admitting Unavailable VICKYS, RAJNI Cardoso Attending Unavailable VICKYS, RAJNI Cardoso Referring Unavailable VICKYS, RAJNI Cardoso Primary Care Unavailable DEBDOUGIE, IMAD M Attending Unavailable VICKYSARJNI Referring Unavailable VICKYSRAJNI Primary Care Unavailable VICKYS, RAJNI Cardoso Primary Care Unavailable JUAN BRUNER Attending Unavailable HARIRI, IMAD M Referring Unavailable VICKYS, RAJNI Cardoso Primary Care Unavailable VICKYS, RAJNI Cardoso Primary Care Unavailable ARTURO STOKES Attending Unavailable Allergies Allergy ClassificationReported Allergen(s)Allergy TypeDate of OnsetReaction(s) Facility (1 source)morphine; Translations: [Morphine Sulfate][facility] (2 sources)penicillin; [facility]ations: [penicillin[facility] ([facility] sources)Morphine; Translations: [morphine]Drug Zrckjlw22-92-1040 Hallucinations, Other (See Comments)[facility] (20 sources)Penicillins; Translations: [Penicillins]Allergy to substance 58-54-0047XjgiifjqfacDignujqoiMercy Health [facility] (18 sources)fentaNYL; Translations: [FENTANYL]Drug Yrxpgch38-50-0896Jkpsh (See Comments)[facility] Medications Current Medications MedicationDrug Class(es)DatesSig (Normalized)Sig (Original)acetaminophen 325 mg oral tablet (20 sources)Start: 15-19-0610yxkg 2 tablets by mouth every four hours as needed for pain and headacheacetaminophen (TYLENOL) 325 mg tablet Take 2 tablets (650 mg total) by mouth every 4 (four) hours as needed for pain or headaches. 30 tablet 07/27/2023 ActiveStart: 07-25-2023 End: 95-83-8948rufn 1 tablet by mouth every four hours as needed for headache and hlim269 mg, oral, Every 4 hours PRN, headaches, moderate pain - pain scale 4-6, Starting on 07/25/23at 210take 1 tablet by mouth every four hours as needed for painacetaminophen (Tylenol) 325 MG tablet Take 325 mg by mouth every 4 (four) hours if needed for mild pain [id number] 200 actuat albuterol 0.09 mg/actuat metered dose inhaler (20 sources)beta2-Adrenergic AgonistStart: 09-21-2024 End: 10-94-6639xchw 2 puff(s) by inhalation every four hours [...] oral tablet (20 sources)Atypical AntipsychoticStart: 07-27-2023 End: 26-31-8405HBKZjfrxnwcu (ABILIFY) tablet 15 mgStart: 05-13-2023 End: 43-14-1333rnsn 1 tablet by mouth once dailyARIPiprazole (ABILIFY) 15 mg tablet Take 1 tablet (15 mg total) by mouth nightly. 05/13/2023 ActiveStart: 13-45-2440ftkg 10 mg by mouth once daily at bedtimeAripiprazole Active 10 MG PO Daily at bedtime June 22, 2018 1:00amStart: 56-85-9526odnl 5 mg by mouth once dailyAripiprazole Active 5 MG PO Daily June 08, 2018 1:00am End: 15-36-2790ieed 1 tablet by mouth once dailyARIPiprazole (Abilify) 15 MG disintegrating tablet Take 15 mg by mouth Daily 03/17/2024 Discontinued (Med list cleanup) End: 45-65-0243kliz 2 tablets by mouth once dailyARIPiprazole (ABILIFY) 10 mg tablet Take 2 tablets (20 mg total) by mouth nightly. 0 06/01/2023 Discontinued (Duplicate Listing)take 1 tablet by mouth every twenty-four hoursAbilify 30 MG 1 tablet Orally Once a day Activeatorvastatin 80 mg oral tablet (20 sources)HMG-CoA Reductase InhibitorStart: 92-18-3687fwds 1 tablet by mouth in the morningatorvastatin (LIPITOR) 80 mg tablet Indications: Atherosclerosis of [place] coronary artery of [place] heart without angina pectoris , Hx of hyperlipidemia Take 1 tablet (80 mg total) by mouth in the morning. 90 tablet 3 04/26/2024 ActiveStart: 90-84-7105uecx 1 tablet by mouth in the morning atorvastatin (LIPITOR) 80 mg tablet Indications: Atherosclerosis of [place] coronary artery of [place] heart without angina pectoris , Hx of hyperlipidemia TAKE 1 TABLET (80 MG TOTAL) BY MOUTH IN THE MORNING 90 tablet 3 04/09/2024 ActiveStart: 07-26-2023 End: 30-89-2666wwak 80 mg by mouth once daily80 mg, oral, Daily, First dose on 07/26/23 at 0900, Look-alike/sound-alike medication - verify indication for use.Start: 04-09-2023 End: 12-66-6167qzze 1 tablet by mouth in the morningatorvastatin (LIPITOR) 80 mg tablet Indications: Atherosclerosis of [place] coronary artery of [place] heart without angina pectoris , Hx of hyperlipidemia Take 1 tablet (80 mg total) by mouth in the morning. 90 tablet 3 04/26/2024 Activebenztropine mesylate 0.5 mg oral tablet (1 source)Anticholinergic, AntihistamineStart: 58-03-9925qpgf 0.5 mg by mouth every six hoursBenztropine Active 0.5 MG PO Q6H 60 June 22, 2018 1:73gr694 actuat budesonide 0.16 mg/actuat / formoterol fumarate 0.0048 mg/actuat / glycopyrrolate 0.009 mg/actuat metered dose inhaler (20 sources)Corticosteroid, beta2-Adrenergic AgonistStart: 81-33-3209yilr 2 puff(s) by inhalation in the bvajcxqvbgenycvza-csklhgit-gecnidkwmf (BREZTRI AEROSPHERE) 160-9-4.8 mcg/actuation HFA aerosol inhaler Indications: Chronic obstructive pulmonary disease, unspecified COPD type ([facility]) Inhale 2 puffs in the morning and 2 puffs before bedtime. 10.7 g 10 06/25/2023 Active End: 38-43-6405Wqgfpzl-Glycopyrrol-Formoterol (Breztri Aerosphere) 160-9-4.8 MCG/ACT aerosol Inhale 09/21/2024 Discontinued (Reorder)celecoxib 200 mg oral capsule (20 sources)Nonsteroidal Anti-inflammatory DrugStart: 02-22-2024 End: 28-54-5213fwakgxdsr (CeleBREX) 200 MG capsule 02/22/2024 Active cholecalciferol [...] ActiveclonazePAM 0.5 mg oral tablet (20 sources)BenzodiazepineStart: 45-15-4585vxhu 1 tablet by mouth in the morning, then take 1 tablet by mouth at bedtimeclonazePAM (KlonoPIN) 0.5 mg tablet Take 1 tablet (0.5 mg total) by mouth in the morning and 1 tablet (0.5 mg total) before bedtime. 09/14/2023 ActiveStart: 07-26-2023 End: 56-26-9119tssfcarDEK (KlonoPIN) tablet 0.5 mgStart: 05-13-2023 End: 66-73-4172nnwcwntKRQ (KlonoPIN) 0.25 mg disintegrating tablet Dissolve 1 tablet (0.25 mg total) on tongue 2 (two) times a day as needed. 0 05/13/2023 ActiveStart: 05-13-2023 End: 50-44-7035rbjdpqwUYG (KlonoPIN) 0.25 mg disintegrating tablet Dissolve 2 tablets (0.5 mg total) on tongue 2 (two) times a day as needed. 05/13/2023 09/24/2023 Discontinued (Dose adjustment)Start: 01-07-2018 End: 94-89-6453qvmq 0.5 mg by mouth twice dailyClonazepam Discontinued 0.5 MG PO Twice daily January 07, 2018 12:00am January 18, 2018 11:12amtake 1 tablet by mouth every twenty-four hoursKlonoPIN 0.5 MG 1 tablet Orally Once a day Activediclofenac sodium 50 mg / miSOPROStol 0.2 mg delayed release oral tablet (6 sources)Nonsteroidal Anti-inflammatory Drug, Prostaglandin E1 AnalogStart: 72-51-3873ezng 1 tablet by mouth in the morningdiclofenac-miSOPROStol (ARTHROTEC 50) 50-200 mg-mcg EC tablet Take 1 tablet by mouth in the morningand 1 tablet before bedtime. 60 tablet 2 01/04/2025 Xbfkkvsswoel-okmyuinrl-ypw,al-simeth (FIRST-MOUTHWASH BLM) 14-289-191-40 mg/30mL mouthwash (6 sources)Start: 67-85-0509mvcu 5 mL by mouth four times daily as needed weypxf-rjmvpdcyc-qru,al-simeth (FIRST-MOUTHWASH BLM) 56-403-072-40 mg/30mL mouthwash Indications: Stomatitis Take 5 mL by mouth 4 (four) times a day as needed for mucositis or mouth/gum irritation. 119 mL 1 01/10/2025 Activedoxepin hydrochloride 75 mg oral capsule (20 sources)Tricyclic Antidepressantdoxepin (SINEquan) 75 mg capsule Active End: 31-95-5227pvfb 3 capsules by mouth once dailydoxepin (SINEquan) 25 mg capsule Take 3 capsules (75 mg total) by mouth nightly. 0 06/01/2023 Discon tinued (Duplicate Listing)empagliflozin 10 mg oral tablet (20 sources)Sodium-Glucose Cotransporter 2 InhibitorStart: 04-12-2024 End: 87-08-3635mmmu 1 tablet by mouth in the morningJARDIANCE 10 mg tablet tablet Indications: Chronic heart failure with preserved ejection fraction (CMS- HCC) , Atherosclerosis of [place] coronary artery of [place] heart without angina pectoris TAKE 1 TABLET (10 MG) BY MOUTH IN THE MORNING 90 tablet 1 02/28/2025 ActiveStart: 09-01-2022 End: 17-19-8094obsa 1 tablet by mouth in the morningJARDIANCE 10 mg tablet tablet Indications: Chronic heart failure with preserved ejection fraction (CMS- HCC) , Atherosclerosis of [place] coronary artery of [place] heart without angina pectoris TAKE 1 TABLET (10 MG TOTAL) BY MOUTH IN THE MORNING 90 tablet 3 10/02/2023 Activetake 25 mg by mouth once dailyJARDIANCE 25 mg daily orally Activeezetimibe 10 mg oral tablet (20 sources)Dietary Cholesterol Absorption InhibitorStart: 07-08-2024 End: 63-39-3180hvwa 1 tablet by mouth in the morningezetimibe (ZETIA) 10 mg tablet Indications: Atherosclerotic heart disease of [place] coronary arterywith other forms of angina pectoris TAKE 1 TABLET (10 MG TOTAL) BY MOUTH IN THE MORNING 90 tablet Activefolic acid 1 mg oral tablet (1 source)Start: 13-13-6779lyab 1 mg by mouth once dailyFolic Acid Active 1 MG PO Daily June 22, 2018 1:00am12 hr guaiFENesin 600 mg extended release oral tablet (14 sources)Start: 55-69-1185htes 1 tablet by mouth onceguaiFENesin (MUCINEX) 600 mg tablet extended release 12hr Take 1 tablet (600 mg total) by mouth every 12 (twelve) hours. 14 tablet 12/06/2024 ActivehydrOXYzine hydrochloride 25 mg oral tablet (20 sources)AntihistamineStart: 77-61-8891abve 1 tablet by mouth twice daily as needed for anxietyhydrOXYzine (ATARAX) 25 mg tablet Take 1 tablet (25 mg total) by mouth 2 (two) times a day as needed for anxiety. 12/06/2024 ActiveStart: 53-47-5301crgf 1 tablet by mouth once dailyhydrOXYzine HCl (Atarax) 25 MG tablet Take 25 mg by mouth Daily 02/29/2024 ActiveStart: 21-52-5584gjjq 50 mg by mouth three times dailyHydroxyzine [...] oral tablet (20 sources)Mood Stabilizer, Anti-epileptic AgentStart: 24-42-0946mbfx 1 tablet by mouth in the morninglamoTRIgine (LaMICtal) 150 mg tablet Take 1 tablet (150 mg total) by mouth in the morning. 10/07/2023 ActiveStart: 07-26-2023 End: 81-08-5103fauj 100 mg by mouth once wfvyn557 mg, oral, Daily, First dose on 07/26/23 at 0900, Look-alike/sound-alike medication - verify indication for use. End: 49-23-2086ymjo 4 tablets by mouth in the morninglamoTRIgine (LaMICtal) 25 mg tablet Take 4 tablets (100 mg total) by mouth in the morning. 0 06/01/2023 Discontinued (Dose adjustment)[place] (1 source)[place] Activelithium carbonate 450 mg extended release oral tablet (1 source)Start: 91-36-4893tfye 900 mg by mouth once daily at bedtimeLithium Carbonate Active 900 MG PO Daily at bedtime 60 June 22, 2018 1:00am methocarbamol 750 mg oral tablet (8 sources)Muscle Relaxant End: 97-25-6815rbrmkziffkyyx (Robaxin) 750 MG tablet TAKE 1 TABLET BY MOUTH EVERY 12 HOURS FOR 30 DAYS for 30 Ygnlif08 hr metoprolol succinate 25 mg extended release oral tablet (17 sources)beta-Adrenergic BlockerStart: 45-69-8108mukn 1 tablet by mouth once dailymetoprolol succinate XL (TOPROL XL) 25 mg 24 hr tablet Indications: Chronic heart failure with preserved ejection fraction (CMS-HCC) , Pulmonary hypertension ([facility]-H[facility]) , Nonrheumatic tricuspid valve regurgitation , Essential hypertension , Atherosclerosis of [place] coronary artery of [place] heart without angina pectoris , History of four vessel coronary artery bypass graft , NSTEMI (non-ST elevated myocardial infarction) ([facility]) Take 1 tablet (25 mg total) by mouth nightly. 30 tablet 11 11/28/2024 Activemirtazapine 45 mg oral tablet (3 sources)Start: 63-21-8880nqxh 45 mg by mouth once daily at bedtimeMirtazapine Active 45 MG PO Daily at bedtime June 22, 2018 1:00amStart: 01-18-2018 End: 19-89-6780sbny 45 mg by mouth at bedtimeMirtazapine Discontinued 45 MG PO Bedtime January 18, 2018 12:00am June 08, 2018 11:26amStart: 01-07-2018 End: 27-80-6860pfkv 30 mg by mouth at bedtimeMirtazapine Discontinued 30 MG PO Bedtime January 07, 2018 12:00am January 18, 2018 11:12am24 hr nicotine 0.875 mg/hr transdermal system (2 sources)Cholinergic Nicotinic AgonistStart: 60-45-1366Fjifmcdk Active 1 EACH TRANSDERML Daily June 22, 2018 1:00amStart: 01-18-2018 End: 48-98-3340Ypxhvwpp Discontinued 1 EACH TRANSDERML Daily January 18, 2018 12:00am June 08, 2018 11:26amondansetron 4 mg disintegrating oral tablet (11 sources)Serotonin-3 Receptor AntagonistStart: 40-07-5070rsnv 1 tablet by mouth every eight hours as needed for nauseaondansetron ODT (ZOFRAN ODT) 4 mg disintegrating tablet Dissolve 1 tablet (4 mg total) on tongue every 8 (eight) hours as needed for nausea for up to 10 doses. 10 tablet 02/09/2025 Active End: 22-77-6597pcwt 1 tablet by mouth every eight hours as needed for nausea and vomitingondansetron (ZOFRAN) 4 mg tablet Take 1 tablet (4 mg total) by mouth every 8 (eight) hours as needed for nausea or vomiting. 0 07/27/2023 Discontinued (Stop Taking at Discharge)Oxygen (17 sources)oxygen Inhale 2 L/min continuously. Activepantoprazole 40 mg delayed release oral tablet (20 sources)Proton Pump InhibitorStart: 79-76-3625wynu 1 tablet by mouth once daily before breakfastpantoprazole (PROTONIX) 40 mg EC tablet Indications: Gastro-esophageal reflux disease without esophagitis TAKE 1 TABLET BY MOUTH EVERY DAY IN THE MORNING BEFORE BREAKFAST 90 tablet 02/24/2025 ActiveStart: 07-01-2023 End: 72-46-5755yrol 1 tablet by mouth once daily before breakfastpantoprazole (PROTONIX) 40 mg EC tablet Indications: Gastro-esophageal reflux disease without esophagitis Take 1 tablet (40 mg total) by mouth every morning before breakfast. 90 tablet 11/07/2024 02/24/2025 Discontinuedtake 2 tablets by mouth every twenty-four hoursPantoprazole Sodium 40 MG 2 tablets Orally Once a day Activepotassium chloride 20 meq extended release oral tablet (20 sources)Start: 00-87-1435uhnawcexh chloride (K-TAB,KLOR-CON) 20 mEq CR tablet Take 1 tablet (20 mEq total) by mouth in the morning. 30 tablet 11 02/21/2025 ActiveStart: 07-26-2023 End: mEq, oral, Daily, First dose on 07/26/23 at 0900, Do not crush or chew.take 1 dose by mouth once daily at mealtimePotassium Chloride 20 MEQ 1 packet with food Orally Once a day Activepregabalin 100 mg oral capsule (20 sources)Start: 73-43-1294xjyw 1 capsule by mouth at bedtimepregabalin (LYRICA) 100 mg capsule Indications: Peripheral polyneuropathy Take 1 capsule (100 mg total) by mouth before bedtime. 12/06/2024 ActiveStart: 03-07-2024 End: 63-44-7329nldi 1 capsule by mouth at bedtimepregabalin (LYRICA) 100 mg capsule Indications: Peripheral polyneuropathy Take 1 capsule (100 mg total) by mouth before bedtime. 12/06/2024 ActiveStart: 01-26-2024 End: 05-48-4205kdcq 1 capsule by mouth in the morning, then take 1 capsule by mouth at bedtimepregabalin (LYRICA) 50 mg capsule Indications: Peripheral polyneuropathy Take 1 capsule (50 mg total) by mouth in the morning and 1 capsule (50 mg total) before bedtime. 60 capsule 01/26/2024 03/07/2024 Discontinued (Reorder)propranolol hydrochloride 40 mg oral tablet (20 sources)beta-Adrenergic BlockerStart: 10-07-2024 End: 70-26-5735hcig 1 tablet by mouth at bedtime, then take 1 tablet by mouth at bedtimepropranoloL (INDERAL) 40 mg tablet Take 1 tablet (40 mg total) by mouth in the morning and at bedtime. TAKE 1 TABLET (40 MG TOTAL) BY MOUTH IN THE MORNING AND BEFORE BEDTIME 11/08/2024 ActiveStart: 07-25-2023 End: 72-45-6081wwdg 40 mg by mouth twice daily40 mg, oral, 2 times daily, First dose on 07/25/23 at 2115, Look-alike/sound-alike medication - verify indication for use. End: 72-92-9016ktkh 1 capsule by mouth every twenty-four hours at bedtime propranolol XL (Innopran XL) 80 MG 24 hr capsule Take 80 mg by mouth at bedtime Do not crush, chew,or split. Activetake 1 tablet by mouth every twelve hours Propranolol HCl 80 MG 1 tablet Orally Twice a day Activesalmon calcitonin 200 unt/actuat nasal spray (20 sources)CalcitoninStart: 09-09-2023 End: 70-63-6314ykes 1 spray(s) nasal route in the morningcalcitonin, salmon, (Miacalcin) 200 UNIT/ACT nasal spray Administer 1 spray into affected nostril(s) in the morning. 09/09/2023 Activespironolactone 25 mg oral tablet (20 sources)Aldosterone AntagonistStart: 04-12-2024 End: 85-04-0433vbbs 1 tablet by mouth in the morningspironolactone (ALDACTONE) 25 mg tablet Indications: Chronic diastolic heart failure (CMS-HCC) Take1 tablet (25 mg total) by mouth in the morning. 90 tablet 3 02/06/2025 ActiveStart: 11-10-2022 End: 40-51-5959baep 1 tablet by mouth in the morningspironolactone (ALDACTONE) 25 mg tablet Indications: Shortness of breath , Chronic heart failure with preserved ejection fraction (CMS-HCC) TAKE 1 TABLET (25 MG TOTAL) BY MOUTH IN THE MORNING 90 tablet 3 11/02/2023 ActiveSUMAtriptan 50 mg oral tablet (20 sources)Serotonin-1b and Serotonin-1d Receptor AgonistStart: 06-22-2023 End: 57-40-7628QUIGesjewrl (IMITREX) 50 mg tablet TAKE 1 TABLET BY MOUTH DIRECTED 0 06/22/2023 ActiveStart: 10-16-2021 End: 19-64-4389ETYAfkltbts (IMITREX) 25 mg tablet Take by mouth as needed. 10/16/2021 09/24/2023 Discontinued (Duplicate Listing)SUMAtriptan (Imitrex) 25 MG tablet Take 25 mg by mouth 1 (one) time if needed for migraine May repeat dose once in 2 hours if no relief. Do not exceed 2 doses in 24 hours. Active topiramate 100 mg oral tablet (20 sources)Start: 01-04-2024 End: 81-36-7669nhis 1 tablet by mouth at bedtimetopiramate (Topamax) 100 MG tablet TAKE 1 TABLET (100 MG TOTAL) BY MOUTH IN THE MORNING AND AT BEDTIME FOR 90 DAYS. 03/30/2024 ActiveStart: 10-06-2023 End: 92-07-3329jeuu 1 tablet by mouth twice dailytopiramate (TOPAMAX) 50 mg tablet Indications: Spinal stenosis of lumbar region with neurogenic talib dication take 1 tablet by mouth twice a day for 90 days 180 tablet 01/01/2024 01/04/2024 Discontinuedtake 1 tablet by mouth twice dailytopiramate (TOPAMAX) 50 mg tablet TAKE 1 TABLET BY MOUTH TWICE A DAY FOR 30 DAYS Active End: 55-20-7687xnbv 1 tablet by mouth three times dailytopiramate (TOPAMAX) 25 mg tablet Take 1 tablet (25 mg total) by mouth 3 (three) times a day. 0 08/2023 Discontinued (Dose adjustment)torsemide 20 mg oral tablet (20 sources)Loop DiureticStart: 12-27-6507vehg 4 tablets by mouth once daily torsemide (DEMADEX) 20 mg tablet Indications: Chronic diastolic heart failure (CMS-HCC) Take 4 tablets (80 mg total) by mouth daily. 120 tablet 11 02/21/2025 ActiveStart: 02-06-2025 End: 90-11-0523jgkk 2 tablets by mouth once dailytorsemide (DEMADEX) 20 mg tablet Indications: Chronic diastolic heart failure (CMS-HCC) Take 2 tablets (40 mg total) by mouth daily. 60 tablet 11 02/06/2025 02/21/2025 DiscontinuedStart: 12-15-2024 End: 05-94-4366dpzu 3 tablets by mouth once dailytorsemide (DEMADEX) 10 mg tablet Take 3 tablets (30 mg total) by mouth daily. 12/15/2024 02/06/2025 DiscontinuedStart: 13-66-8021aekv 3 tablets by mouth once daily as needed, then take 3 tablets by mouth once daily as neededtorsemide (DEMADEX) 20 mg tablet Indications: Chronic heart failure with preserved ejection fraction (CMS-HCC) , Pulmonary hypertension (CMS-HCC) , Nonrheumatic tricuspid valve regurgitation , Essential hypertension , Atherosclerosis of [place] coronary artery of [place] heart without angina pectoris, History of four vessel coronary artery bypass graft , NSTEMI (non-ST elevated myocardial infarction) (CMS-HCC) Take 3 tablets (60 mg total) by mouth daily. Take 3 tablets daily. May take take an additional tablet as needed for swelling 300 tablet 3 11/28/2024 ActiveStart: 04-12-2024 End: 09-61-6333lkiu 4 tablets by mouth once daily in the morningtorsemide (DEMADEX) 20 mg tablet Indications: Chronic heart failure with preserved ejection fraction (CMS-HCC) Take 4 tablets in the AM by mouth daily 360 tablet 04/12/2024 07/07/2024 Discontinued (Therapy completed)Start: 78-49-4277mryt 4 tablets by mouth once daily in the morningtorsemide (DEMADEX) 20 mg tablet Indications: Chronic heart failure with preserved ejection fraction (CMS-HCC) Take 4 tablets in the AM by mouth daily 03/07/2024 ActiveStart: 11-06-2023 End: 73-34-6744svep 4 tablets by mouth in the morning, [...] and Thursday 438 tablet 3 01/21/2024 ActiveStart: 15-92-3370dpkf 2 tablets by mouth once dailytorsemide 40 mg tablet Take 80 mg by mouth daily. 08/29/2023 ActiveStart: 07-26-2023 End: 60-73-5906guecuawyc (DEMADEX) tablet 80 mgStart: 18-82-7709fetb 4 tablets by mouth once daily as [...] EVENING PRN 540 tablet 1 05/29/2023 ActiveStart: 21-62-5822wsuz 4 tablets by mouth in the morning, [...] 20 mg by mouth Daily Active End: 84-01-2196lhdp 1 tablet by mouth three times dailytorsemide (DEMADEX) 10 mg tablet Take 1 tablet (10 mg total) by mouth 3 (three) times a day. 12/15/2024 Discontinuedtake 2 tablets by mouth once dailyTorsemide 40 MG 2 tablets Orally Once a day ActivetraZODone hydrochloride 100 mg oral tablet (2 sources)Serotonin Reuptake InhibitorStart: 04-76-1488qawj 100 mg by mouth once daily at bedtimeTrazodone Active 100 MG PO Daily at bedtime June 22, 2018 1:00amStart: 01-18-2018 End: 86-98-7206owal 100 mg by mouth once daily at bedtimeTrazodone Discontinued 100 MG PO Daily at bedtime January 18, 2018 12:00am June 08, 2018 11:26amvalsartan 40 mg oral tablet (4 sources)Angiotensin 2 Receptor BlockerStart: 88-39-6429shtl 1 tablet by mouth in the morningvalsartan (DIOVAN) 40 mg tablet Indications: Chronic diastolic heart failure (CMS-HCC) , Pulmonary hypertension (CMS-HCC) Take 1 tablet (40 mg total) by mouth in the morning. 30 tablet 11 02/06/2025 Activevitamin b12 1 mg oral tablet (20 sources)Vitamin B13Ioeqd: 23-49-5987wrgm 1 tablet by mouth in the morning cyanocobalamin 1000 MCG tablet Indications: B12 deficiency TAKE 1 TABLET (1,000 MCG TOTAL) BY MOUTHIN THE MORNING 90 tablet 1 04/13/2024 ActiveVitamin D 50 MCG (1999 [place]) (1 source)take 1 capsule by mouth once dailyVitamin D 50 MCG (1999 UT) 1 capsule Orally Once a day Activevortioxetine 10 mg oral tablet (20 sources)Start: 40-22-2379likj 1 tablet by mouth in the morningTRINTELLIX 10 mg tablet Take 1 tablet (10 mg total) by mouth in the morning. 10/03/2024 Active Completed/Discontinued Medications MedicationDrug Class(es)DatesSig (Normalized)Sig (Original)acetaminophen 325 mg / HYDROcodone bitartrate 5 mg oral tablet (15 sources)Opioid AgonistStart: 09-09-2023 End: 99-13-9617JAZRSeqhgrf-acetaminophen (NORCO) 5-325 mg per tablet Indications: Closed wedge compression fracture of T6 vertebra with routine healing Take 1 tablet by mouth 2 (two) times a day as needed for pain.Max Daily Amount: 2 tablets 60 tablet 10/01/2023 11/02/2023 Discontinued (Therapy completed)Start: 08-29-2023 End: 82-24-5036BKENRpxaodb-acetaminophen (NORCO) 5-325 mg per tablet Indications: Closed [...] \[email or web address]\epic\EPIC_Reference\Orders\Respiratory Care Guidelines\CPG Bronchodilator 2020.pdfStart: 07-25-2023 End: 31-23-1357elzwtapnyff-albuteroL (DUONEB) 0.5 mg-3 mg(2.5 mg base)/3 mL nebulizer solution 3 mLamitriptyline hydrochloride 100 mg oral tablet (9 sources)Tricyclic AntidepressantStart: 06-01-2023 End: 06-05-9027rgbk 0.5 tablet by mouth once dailyamitriptyline (ELAVIL) 100 mg tablet Take 0.5 tablets (50 mg total) by mouth nightly. 0 06/01/2023 07/01/2023 Discontinued (Therapy completed)Start: 10-16-2021 End: 25-75-5532hjya 1 tablet by mouth once dailyamitriptyline (ELAVIL) 100 mg tablet Take 1 tablet (100 mg total) by mouth nightly. 0 10/16/2021 06/01/2023 Discontinuedapixaban 5 mg oral tablet (20 sources)Factor Xa InhibitorStart: 08-31-2023 End: 53-68-7676smnu 2 tablets by mouth twice daily, then take 1 tablet by mouth twice dailyELIQUIS DVT-PE TREAT 30D START 5 mg (74 tabs) tablets,dose pack tablet TAKE 2 TABLETS (10 MG) BY MOUTH 2 TIMES A DAY FOR 7 DAYS, THEN 1 TABLET 2 TIMES A DAY FOR 21 DAYS 08/31/2023 09/30/2023 DiscontinuedStart: 63-97-4163houi 2 tablets by mouth twice daily, then take 1 tablet by mouth twice dailyELIQUIS DVT-PE TREAT 30D START 5 mg (74 tabs) tablets,dose pack tablet TAKE 2 TABLETS (10 MG) BY MOUTH 2 TIMES A DAY FOR 7 DAYS, THEN 1 TABLET 2 TIMES A DAY FOR 21 DAYS 08/31/2023 ActiveStart: 08-29-2023 End: 31-46-3464ttoi 2 tablets by mouth twice daily, then take 1 tablet by mouth twice dailyEliquis DVT/PE Starter Pack 5 MG tablet therapy pack TAKE 2 TABLETS (10 MG) BY MOUTH 2 TIMES A DAY FOR 7 DAYS, THEN 1 TABLET 2 TIMES A DAY FOR 21 DAYS 08/31/2023 03/17/2024 Discontinued (Med list cleanup)Start: 08-29-2023 End: 99-33-0432fwsp 1 tablet by mouth in the morning, [...] Inhibitor, Nonsteroidal Anti-inflammatory Drug Start: 07-26-2023 End: 21-54-2092ador 81 mg by mouth once daily81 mg, oral, Daily, First dose on 07/26/23 at 0900, Do not crush or chew.brexpiprazole 4 mg oral tablet (1 source)Atypical AntipsychoticStart: 01-07-2018 End: 57-78-3027nhce 1 tablet by mouth once daily in the morningBrexpiprazole (Rexulti) 4 mg tablet Discontinued 4 MG PO Every morning January 07, 2018 12:00amS2017 11:12ambusPIRone hydrochloride 10 mg oral tablet (1 source)Start: 01-18-2018 End: 37-77-6608okpg 20 mg by mouth three times dailyBuspirone Discontinued 20 MG PO Three times daily 180 January 18, 2018 12:00am June 08, 2018 11:26amcefTRIAXone 1000 mg injection (1 source)Cephalosporin AntibacterialStart: 07-25-2023 End: 81-30-5647vvqMVIXWedp (ROCEPHIN) IVPB 1000 mg/50 mL in iso-osmotic dextrose (20 mg/mL premix)clindamycin 150 mg oral capsule (12 sources)Lincosamide Antibacterial End: 87-11-1579vkye 1 capsule by mouth three times dailyclindamycin (CLEOCIN) 150 mg capsule Take 1 capsule (150 mg total) by mouth 3 (three) times a day. 0 11/02/2023 Discontinued (Therapy completed)cyclobenzaprine hydrochloride 10 mg oral tablet (20 sources)Muscle RelaxantStart: 12-24-2023 End: 16-76-8814jxwpcmysuwudach (FLEXERIL) 10 mg tablet 12/24/2023 07/07/2024 Discontinued (Therapy completed)Start: 09-10-2023 End: 06-05-1673crgz 1 tablet by mouth twice daily as needed for pain cyclobenzaprine (Fexmid) 7.5 MG tablet Indications: Radiculopathy, lumbosacral region TAKE 1 TABLETBY MOUTH TWICE A DAY NEEDED FOR LOWER BACK PAIN 60 tablet 1 09/10/2023 01/12/2024 Discontinued (Med list cleanup)Start: 56-91-4719stal 1 tablet by mouth twice daily as [...] gel (20 sources)Nonsteroidal Anti-inflammatory DrugStart: 11-04-2023 End: 88-86-7601gsmgopcuai sodium (VOLTAREN) 1 % gel Indications: Fibromyalgia syndrome APPLY 2 G TOPICALLY IN THE MORNING AT AT NOON IN THE EVENING AND BEFORE BEDTIME 100 g 2 11/04/2023 10/07/2024 Discontinued (Patient Stopped On Own) Start: 07-01-2023 End: 59-75-3303odwltildge sodium (VOLTAREN) 1 % gel Indications: Fibromyalgia syndrome Apply 2 g topically in the morning and 2 g at noon and 2 g in the evening and 2 g before bedtime. 100 g 2 07/01/2023 ActiveStart: 06-14-2023 End: 32-93-9770zaui 1 tablet by mouth twice daily as neededdiclofenac (VOLTAREN) 75 mg EC tablet TAKE 1 TABLET BY MOUTH TWICE A DAY NEEDED 0 06/14/202309/2023 Discontinued (Side effects)take 1 tablet by mouth in the morning diclofenac (VOLTAREN) 75 mg EC tablet Take 1 tablet (75 mg total) by mouth in the morning. 0 Activetake 1 capsule by mouth every eight hoursDiclofenac 35 MG 1 capsule as needed Orally Three times a day ActivediphenhydrAMINE hydrochloride 50 mg oral capsule (9 sources)Histamine-1 Receptor Antagonist End: 12-93-6896glwk 1 capsule by mouth every six hours as neededdiphenhydrAMINE (BENADRYL) 50 mg capsule Take 1 capsule (50 mg total) by mouth every 6 (six) hours as needed for itching. 0 07/27/2023 Discontinued (Stop Taking at Discharge)Benadryl Activedoxycycline hyclate 100 mg oral capsule (20 sources)Tetracycline-class DrugStart: 09-24-2023 End: 89-48-0867dtrn 1 capsule by mouth in the morning, then take 1 capsule by mouth at bedtimedoxycycline (VIBRAMYCIN) 100 mg capsule Indications: Community acquired pneumonia, unspecified laterality Take 1 capsule (100 mg total) by mouth in the morning and 1 capsule (100 mg total) before bedtime. Do all this for 7 days. 14 capsule 09/24/2023 09/30/2023 Discontinued (Therapy completed) Start: 07-24-2023 End: 91-23-0033ufrddmdosuy (VIBRAMYCIN) 100 mg capsule 08/01/2023 ActiveStart: 05-18-2023 End: 92-99-1363jqib 1 capsule by mouth in the morning, then take 1 capsule by mouth at bedtimedoxycycline (VIBRAMYCIN) 100 mg capsule Take 1 capsule (100 mg total) by mouth in the morning and 1capsule (100 mg total) before bedtime. Do all this for 10 days. 20 capsule 0 05/18/2023 05/28/2023 Active End: 94-40-6935gpvqgxmazii (Vibramycin) 100 MG capsule Take 100 mg by mouth in the morning and 100 mg before bedtime. Take with at least 8 ounces (large glass) of water, do not lie down for 30 minutes after. 01/12/2024 Discontinued (Med list cleanup)0.4 ml enoxaparin sodium 100 mg/ml prefilled syringe (1 source)Low Molecular Weight HeparinStart: 07-26-2023 End: 11-46-6803mpduel 40 mg by subcutaneous injection once daily40 mg, subcutaneous, Daily, First dose on 07/26/23 at 0600, Look-alike/sound-alike medication - verify indication for use.ferrous sulfate 325 mg oral tablet (12 sources)Start: 01-05-2023 End: 28-76-2947jjjgjbi sulfate 325 (65 FE) mg tablet 1 tablet (325 mg total) in the morning and 1 tablet (325 mg total) in the evening. Take with meals. 0 01/05/2023 07/01/2023 Discontinued (Side effects)ferrous sulfate 325 (65 Fe) MG tablet TAKE 1 TABLET BY MOUTH TWICE A DAY FOR 30 DAYS for 30 Activefurosemide 40 mg oral tablet (5 sources)Loop DiureticStart: 11-07-2024 End: 22-38-0340boew 1 tablet by mouth once dailyfurosemide (LASIX) 40 mg tablet Indications: Venous insufficiency of both lower extremities Take 1 tablet (40 mg total) by mouth daily. 30 tablet 2 11/07/2024 11/28/2024 DiscontinuedStart: 10-24-2024 End: 01-98-1168shmy 1 tablet by mouth once dailyfurosemide (LASIX) 40 mg tablet Indications: Venous insufficiency of both lower extremities Take 1 tablet (40 mg total) by mouth daily for 5 days. 5 tablet 10/24/2024 10/29/2024 ActiveStart: 07-25-2023 End: 42-59-2110ztsmtxlbcv (LASIX) injection 40 mggabapentin 100 mg oral capsule (20 sources)Anti-epileptic AgentStart: 07-25-2023 End: 14-30-8793kxfa 200 mg by mouth three times mg, oral, 3 times daily, First dose on 07/25/23 at 2200, Look-alike/sound-alike medication - verify indication for use.Start: 01-05-2023 End: 61-00-7679lvel 2 capsules by mouth three times dailygabapentin (Neurontin) 100 MG capsule Indications: Polyneuropathy, unspecified TAKE 2 CAPSULES BY MOUTH 3 TIMES A DAY FOR 30 DAYS 180 capsule 2 08/17/2023 01/12/2024 Discontinued (Med list cleanup)lidocaine 0.05 mg/mg medicated patch (4 sources)Antiarrhythmic, Amide Local AnestheticStart: 08-29-2023 End: 95-71-1672bnrok 1 dose transdermal route every twelve hours in the morning lidocaine (LIDODERM) 5 % Place 1 patch on the skin in the morning. Remove & Discard patch within 12 hours or as directed by MD. 5 patch 08/29/2023 09/24/2023 Discontinued (Therapy completed)lurasidone hydrochloride 40 mg oral tablet (3 sources)Atypical AntipsychoticStart: 01-18-2018 End: 20-72-2949rfyv 1 tablet by mouth once dailyLurasidone (Latuda) 40 mg tablet Discontinued 60 MG PO Daily with supper June 08, 2018 11:26am June 08, 2018 12:03pmStart: 01-07-2018 End: 09-30-5581ngof 1 tablet by mouth once dailyLurasidone (Latuda) 20 mg tablet Discontinued 20 MG PO Daily with supper January 07, 2018 12:00am January 18, 2018 11:12am1 ml methylPREDNISolone acetate 40 mg/ml injection (9 sources)CorticosteroidStart: 01-26-2024 End: 23-78-7643hlwqneKMHXDYTwsost acetate (DEPO-Medrol) injection 40 mgStart: 01-26-2024 End: 41-47-153988 mg, Intra-articular, Once PRN Procedure, Starting on Thu01/26/24 at 1350, For 1 doseStart: 12-29-2023 End: 69-87-0932gzrkowLYSRBYSbfpwa acetate (DEPO-Medrol) injection 40 mgStart: 12-29-2023 End: 33-59-025703 mg, Injection, Once PRN Procedure, Starting on Thu12/29/23 at 1458, For 1 doseStart: 07-25-2023 End: 32-07-044246 mg, intravenous, Every 12 hours scheduled, First dose on 07/25/23 at 2115, May alter blood glucose or insulin requirements. Look-alike/sound-alike medication - verify indication for use.12 hr orphenadrine citrate 100 mg extended release oral tablet (3 sources)Muscle RelaxantStart: 10-20-2023 End: 64-04-6745jbft 1 tablet by mouth twice daily as needed for painorphenadrine (NORFLEX) 100 mg 12 hr tablet Take 1 tablet (100 mg total) by mouth 2 (two) times a day as needed for muscle spasms or pain. 10 tablet 10/20/2023 11/02/2023 Discontinued (Formulary change)oxyCODONE hydrochloride 5 mg oral tablet (8 sources)Opioid AgonistStart: 08-09-2023 End: 12-93-4897jfsq 1 tablet by mouth every eight hours as needed for pain oxyCODONE (ROXICODONE) 5 mg immediate release tablet Indications: Acute right hip pain Take 1 tablet (5 mg total) by mouth every 8 (eight) hours as needed for pain for up to 2 days. Max Daily Amount:15 mg 6 tablet 08/09/2023 08/11/2023 End: 81-92-0654mlvQQTILZ (Oxy-IR) 5 MG immediate release capsule Take 5 mg by mouth 01/12/2024 Discontinued (Med list cleanup)prazosin 1 mg oral capsule (1 source)alpha-Adrenergic BlockerStart: 01-18-2018 End: 41-50-7228sibl 2 mg by mouth twice dailyPrazosin Discontinued 2 MG PO Twice daily 120 January 18, 2018 12:00am June 08, 2018 11:26ampredniSONE 20 mg oral tablet (7 sources)Start: 09-24-2023 End: 04-96-3854lzue 1 tablet by mouth in the morningpredniSONE (DELTASONE) 20 mg tablet Indications: Community acquired pneumonia, unspecified laterality Take 1 tablet (20 mg total) by mouth in the morning for 7 days. 7 tablet 09/24/2023 09/30/2023 Discontinued (Therapy completed)Start: 67-41-9745nwwd 2 tablets by mouth once daily at breakfastpredniSONE (DELTASONE) 20 mg tablet Take 2 tablets (40 mg total) by mouth daily with breakfast. 10 tablet 07/28/2023 ActiveStart: 07-28-2023 End: 72-79-0820cliohnUYJV (DELTASONE) tablet 40 mgrisperiDONE 1 mg oral tablet (1 source)Atypical AntipsychoticStart: 06-08-2018 End: 03-19-7994tcly 1 mg by mouth once dailyRisperidone Discontinued 1 MG PO Daily June 08, 2018 1:00am June 22, 2018 9:21ox093 ml sodium chloride 9 mg/ml prefilled syringe (4 sources)Start: 07-25-2023 End: mL, intravenous, Every 12 hours scheduled, First dose on 07/25/23 at 2115Start: 07-25-2023 End: mL, intravenous, As needed, line care, before and after each intermittent use, Starting on 07/25/23 at art: 07-25-2023 End: 65-20-6176bpct 20 mL intravenously every hour as mL/hr, intravenous, Continuous PRN, to maintain patency of lines, Starting on 07/25/23 at art: 07-25-2023 End: 41-81-5848cclm 25 mL intravenously every hour as mL, intravenous, at 100 mL/hr, Administer over 15 Minutes, As needed, line care, line care after IVPB administration, Starting on 07/25/23 at 666719 hr venlafaxine 75 mg extended release oral capsule (20 sources)Serotonin and Norepinephrine Reuptake InhibitorStart: 03-14-2023 End: 84-65-0067rxqd 1 capsule by mouth once daily in the morningvenlafaxine XR (EFFEXOR XR) 75 mg 24 hr capsule TAKE 1 CAPSULE BY MOUTH EVERY DAY IN THE MORNING 03/14/2023 ActiveStart: 03-14-2023 End: 54-19-5944vcoudwlopme XR (EFFEXOR XR) 75 mg 24 hr capsule 03/14/2023 10/07/2024 Discontinued (Discontinued byanother clinician)Start: 10-17-2021 End: 89-06-8762behj 1 capsule by mouth every twenty-four hours [...] [Diaphragmatic hernia without obstruction or gangrene]Onset: 11-07-2024 81-49-9672FfqzovskNyqwivvkk pain (4 sources)Right inguinal pain; Translations: [Right lower quadrant pain]Onset: 560201-12-3365RaakcokvJldhw and unspecified renal failure (5 sources)Acute injury of kidney; Translations: [Acute kidney failure, unspecified]Onset: 384710-41-3143XjtkwaswOsqlv myocardial infarction (20 sources)Myocardial infarction; Translations: [Non-ST elevation (NSTEMI) myocardial infarction]Onset: 408927-59-3276AyxxdktMbymgla disorders (20 sources)Posttraumatic stress disorder; Translations: [Post-traumatic stress disorder, unspecified]Onset: 08-28-2015 Resolved: 814895-59-6093YsrjnhqYyllukgue and vision defects (20 sources)Visual impairment; Translations: [Unspecified visual loss]Onset: 483443-83-1951EakgfepQqdxyyq kidney disease (20 sources)Chronic kidney disease stage 3A ; Translations: [Stage 3a chronic kidney disease ([facility])]Onset: 07-07-2024 Resolved: 030546-67-9887CorgvcaUifsekx kidney disease (3 sources)Chronic kidney disease; Translations: [Chronic kidney disease, stage 3a]Onset: 21-01-6064Tdrliut obstructive pulmonary disease and bronchiectasis (20 sources)Chronic obstructive lung disease; Translations: [Chronic obstructive pulmonary disease, unspecified]Onset: 999677-97-2701ZypksxxOsyapcjsvg associated with dizziness or vertigo (1 source)DizzinessOnset: 83-75-3837PlditegaDymgycnlta heart failure; nonhypertensive (20 sources)Chronic heart failure co-occurrent with normal ejection fraction; Translations: [Chronic diastolic (congestive) heart failure]Onset: 02-27-2022 Resolved: 677543-09-3241TdtxgjgEnyjgsdm atherosclerosis and other heart disease (20 sources)Coronary arteriosclerosis; Translations: [Atherosclerotic heart disease of [place] coronary artery without angina pectoris]Onset: 05-08-2013 Resolved: 225822-31-7565MnothzvNcenhbin atherosclerosis and other heart disease (9 sources)Aortocoronary bypass graft present; Translations: [Presence of aortocoronary bypass graft]Onset: 04-29-2023 Resolved: 912736-00-8450OjhmgsgoPnuvqbjppf and other anemia (9 sources)Microcytic anemia; Translations: [Iron deficiency anemia, unspecified]Onset: 939230-84-3246MoqsbywoHkwxidbysb and other anemia (2 sources)Iron deficiency anemia, unspecified; Translations: [Iron deficiency anemia, unspecified]Onset: 24-99-4186NdcifdqmAxxfrmei mellitus with complications (2 sources)Type 2 diabetes mellitus; Translations: [Type 2 diabetes mellitus with diabetic chronic kidney disease]Onset: hronic Esophageal disorders (20 sources)Gastroesophageal reflux disease; Translations: [Gastro-esophageal reflux disease without esophagitis]Onset: 986042-75-0843CawzxokQrojchrhk hypertension (20 sources)Essential hypertension; Translations: [Essential (primary) hypertension]Onset: 426689-64-4126KvmbfxxZegpjtmz; including migraine (13 sources)Migraine; Translations: [Migraine, unspecified, not intractable, without status migrainosus]Onset: 675391-91-3471ZjebmmmJliwx valve disorders (20 sources)Tricuspid incompetence, non-rheumatic ; Translations: [Nonrheumatic tricuspid (valve) insufficiency]Onset: 725803-83-9729UeejqxmAdmufmp and fatigue (20 sources)Asthenia; Translations: [Weakness]Onset: 05-28-2023 Resolved: 612980-96-1297LdhylaemPutj disorders (20 sources)Bipolar II disorder, most recent episode major depressive; Translations: [Bipolar II disorder]Onset: 129682-06-9419WgbgfzgPznpqz and vomiting (5 sources)Nausea and vomiting; Translations: [Nausea with vomiting, unspecified]Onset: 865135-25-4070QrscnlhzJnkvuiopvtj deficiencies (13 sources)Vitamin D deficiency; Translations: [Vitamin D deficiency, unspecified]Onset: 303614-93-2423AklqnptSwnasquphthuea (20 sources)Primary osteoarthritis, left shoulder; Translations: [Arthropathy, unspecified, shoulder region]Onset: 152774-98-4416NadiyabXmuhe aftercare (1 source)Encounter for therapeutic drug level monitoring; Translations: [Encounter for therapeutic drug level monitoring]Onset: 28-13-0945GaacnfsgLbtpk aftercare (1 source)Other detention (current) drug therapy; Translations: [Other detention (current) drug therapy]Onset: 62-47-3387UtmsucpwTkcbg circulatory disease (1 source)Orthostatic hypotension; Translations: [Orthostatic hypotension] 29-62-8122XnparuvnIizyz connective tissue disease (1 source)Trochanteric bursitis, left hipEpisodicOther connective tissue disease (6 sources)Myofascial pain syndrome; Translations: [Myalgia, unspecified site] 99-07-4153GapwkqyhVntcn connective tissue disease (3 sources)Fibromyalgia; Translations: [Fibromyalgia]61-16-6690NvablzvpSpywp connective tissue disease (2 sources)Tendonitis of right patellar tendon; Translations: [Patellar tendinitis, right knee]31-18-6936KwtfhqpnJmdno connective tissue disease (2 sources)Patellar tendinitis, right knee; Translations: [Patellar tendinitis, right knee]Onset: 81-52-9745XmzyxlobVlqis diseases of veins and lymphatics (4 sources)Venous insufficiency of leg; Translations: [Venous insufficiency (chronic) (peripheral)]44-70-3970OwirenrlVcnzd diseases of veins and lymphatics (1 source)Venous insufficiency (chronic) (peripheral); Translations: [Venous insufficiency (chronic) (peripheral)]Onset: 80-74-6875GoetnzuvMjftw liver diseases (20 sources)Disease of liver; Translations: [Liver disease, unspecified]Onset: 610585-09-3979LfwhcftOhppe lower respiratory disease (1 source)Acute respiratory distressOnset: 05-52-4132WskctsycJagoe lower respiratory disease (1 source)Shortness of breath; Translations: [Shortness of breath]Onset: 46-06-8070PwpjlezyIsrcv lower respiratory disease (1 source)Dyspnea, unspecified; Translations: [Dyspnea, unspecified]Onset: 61-10-8744SnnxixscPgsvy nervous system disorders (2 sources)Polyneuropathy, unspecified; Translations: [Polyneuropathy, unspecified]Onset: 77-08-4462NyiscmwIiipw non-traumatic joint disorders (2 sources)Pain in left shoulder; Translations: [Pain in joint, shoulder region] 76-17-1357KsnoxhmgAllyo nutritional; endocrine; and metabolic disorders (13 sources)Obesity caused by energy imbalance; Translations: [Morbid (severe) obesity due to excess calories]Onset: 130612-85-5086VpmfiyaRhigl nutritional; endocrine; and metabolic disorders (20 sources)Body mass index 30+ - obesity; Translations: [Obesity, unspecified] Onset: 01-30-2020 Resolved: 933842-08-1831RszodhhSirtb nutritional; endocrine; and metabolic disorders (1 source)Body mass index (BMI) 40.0-44.9, adult; Translations: [Body mass index (BMI) 40.0-44.9, adult]Onset: 25-40-9295YlshdkhHaegwxpvipz disorders (13 sources)Borderline personality disorder; Translations: [Borderline personality disorder]Onset: 905230-97-5348CsnqtiqZpyfgicos (except that caused by tuberculosis or sexually transmitted disease) (20 sources)Pneumonia; Translations: [Pneumonia, unspecified organism]Onset: 04-15-2023 Resolved: 142245-43-7646UhubwnlwQgxompfni heart disease (20 sources)Pulmonary hypertension; Translations: [Pulmonary hypertension, unspecified]Onset: 197058-05-6685UbimhutHgjabbjk codes; unclassified (20 sources)Obstructive sleep apnea syndrome; Translations: [Obstructive sleep apnea (adult) (pediatric)]Onset: 580245-02-9381VwjbqoyFnyrtdlc codes; unclassified (1 source)Sleep related hypoxemia; Translations: [Sleep related hypoventilation in conditions classified elsewhere]11-71-6659RxkopfjValdznze codes; unclassified (1 source)Obstructive sleep apnea (adult) (pediatric); Translations: [Obstructive sleep apnea (adult) (pediatric)]Onset: 05-23-7594QegfzubPpssvurz codes; unclassified (1 source)EdemaOnset: 59-83-3442HwvyyetzYckfjzgibdy failure; insufficiency; arrest (adult) (20 sources)Chronic respiratory failure; Translations: [Chronic respiratory failure with hypoxia]Onset: 651290-52-9255ByexwumOvdaoknnpir; intervertebral disc disorders; other back problems (20 sources)Bilateral inflammation of sacroiliac joint; Translations: [Sacroiliitis, not elsewhere classified]Onset: 07-07-2024 Resolved: 72-16-0953ErivynbCickvxujd-related disorders (20 sources)Cannabis abuse; Translations: [Cannabis abuse, uncomplicated]Onset: 10-16-2020 Resolved: 923377-11-4160GbixbmvIykjslsngfy injury; contusion (1 source)Contusion of lower leg; Translations: [Contusion of unspecified lower leg, initial encounter]25-02-1997HtetdczbLqdqapulincq (1 source)Low back pain, unspecified; Translations: [Low back pain, unspecified] Onset: 71-28-1662Dezkwceydpse (1 source)Chronic heart failure co-occurrent with normal ejection fraction 58-84-6628Jctudtbkcvkk (2 sources)Autogenerated ProblemOnset: 815975-17-2624Syoxijbtvvps (1 source)Controlled SubstanceOnset: 58-44-8089Bgbooffemuow (1 source)ErrorOnset: 96-42-3529Gkrqdlphnlwz (1 source)illOnset: 12-03-2024 Past or Other Problems Problem ClassificationProblemDateDocumented DateEpisodic/ChronicCardiac dysrhythmias (6 sources)Ventricular tachycardia; Translations: [Ventricular tachycardia] Onset: 09-20-2024 Resolved: 627029-43-0690GzfpoleLicyxkfkssndn of surgical procedures or medical care (6 sources)Non-healing surgical wound; Translations: [Other complications of procedures, not elsewhere classified, initial encounter]Onset: 01-14-2023 39-55-6321KtklxrclEqfodhtlgw and other anemia (19 sources)Iron deficiency anemia; Translations: [Iron deficiency anemia, unspecified]Onset: 608632-83-0451PdbiyrvmOrymunvs, dementia, and amnestic and other cognitive disorders (20 sources)Dementia; Translations: [Unspecified dementia, mild, without behavioral disturbance, psychotic disturbance, mood disturbance, and anxiety] Onset: 10-21-2022 Resolved: 721881-32-6630BtfjievJigmtrxy mellitus without complication (20 sources)Hyperglycemia; Translations: [Hyperglycemia, unspecified]Onset: 139578-27-5101FjzauctgSpothoiko of lipid metabolism (7 sources)Hyperlipidemia; Translations: [Hyperlipidemia, unspecified]Onset: 04-29-2023 Resolved: 929186-34-5796GfkvmkrLkyzo and electrolyte disorders (20 sources)Hypokalemia; Translations: [Hypokalemia]Onset: 08-14-2020 Resolved: 462370-67-5128LwqgusokUtqguicf; including migraine (17 sources)Chronic headache disorder; Translations: [Chronic headache]Onset: 704650-37-1644OgbtfjgdEnhj disorders (20 sources)Mood disordersOnset: 01-04-2024 Resolved: 636106-18-2539Bnyneuilade deficiencies (5 sources)Cobalamin deficiency; Translations: [Deficiency of other specified B group vitamins]Onset: 167141-95-8976NnujjfxyGitab circulatory disease (7 sources)Low blood pressure; Translations: [Other hypotension]Onset: 08-14-2020 Resolved: 589717-51-7519DlemvoshEdbec connective tissue disease (13 sources)Muscle weakness; Translations: [Muscle weakness (generalized)]Onset: 846093-37-5638JdexnvpsOdixu diseases of kidney and ureters (6 sources)Acute renal insufficiency; Translations: [Disorder of kidney and ureter, unspecified]Onset: [id number] fractures (20 sources)Fracture of sixth thoracic vertebra; Translations: [Wedge compression fracture of T5-T6 vertebra, subsequent encounter for fracture with routine healing]Onset: 417673-49-0767YsqxybnwIvcol fractures (2 sources)Compression fracture of thoracic spine; Translations: [Wedge compression fracture of T7-T8 vertebra, subsequent encounter for fracture with routine healing]91-97-0464HvstdscjLshuo inflammatory condition of skin (8 sources)Psoriasis; Translations: [Psoriasis, unspecified]Onset: 05-02-2023 Resolved: [id number] injuries and conditions due to external causes (6 sources)Injury of breast; Translations: [Unspecified injury of thorax, initial encounter]Onset: 248158-12-0608NijbdabdQtacq lower respiratory disease (8 sources)Solitary nodule of lung; Translations: [Solitary pulmonary nodule] Onset: 04-29-2023 Resolved: 976066-66-3712WncspodhDqtji lower respiratory disease (20 sources)Dyspnea; Translations: [Shortness of breath]Onset: 11-05-2021 Resolved: 803632-12-4353ElriravaGknoi lower respiratory disease (1 source)Hypoxia; Translations: [Hypoxemia]25-67-3221HaymppcrSrmou nervous system disorders (8 sources)Difficulty walking; Translations: [Difficulty in walking, not elsewhere classified]Onset: 04-28-2023 Resolved: 173505-14-9223VygtfavLfzde nervous system disorders (15 sources)Polyneuropathy; Translations: [Polyneuropathy, unspecified]Onset: 04-29-2023 Resolved: 588549-59-6926IqbeigiEnbzl nervous system disorders (1 source)Ataxia, unspecified; Translations: [Ataxia, unspecified]Onset: 43-24-0788GzrgtvsnCmsut nutritional; endocrine; and metabolic disorders (20 sources)Body mass index 40+ - severely obese; Translations: [Body mass index (BMI) 40.0-44.9, adult]Onset: 06-01-2023 Resolved: 010511-53-9471FzhydyzKmryv nutritional; endocrine; and metabolic disorders (20 sources)H/O: raised blood lipids; Translations: [Personal history of other endocrine, nutritional and metabolic disease]Onset: 107076-16-9823Ikvwtyuz Pathological fracture (2 sources)Pathological fracture of vertebra due to osteoporosis; Translations: [Other osteoporosis with current pathological fracture, vertebra(e), subsequent encounter for fracture with routine healing]46-25-0974CbtvowjxUbvbgiflk heart disease (20 sources)Acute pulmonary embolism; Translations: [Other pulmonary embolism without acute cor pulmonale]Onset: 08-28-2023 Resolved: 463284-33-8034CvlkruvtEkzrwgmx codes; unclassified (8 sources)Dependence on enabling machine or device; Translations: [Dependence on other enabling machines and devices]Onset: 04-29-2023 Resolved: 660178-69-0633MwnkxupAtvrxwmj codes; unclassified (20 sources)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; Translations: [Dependence on other enabling machines and devices]Onset: 10-21-2022 Resolved: 723857-33-2243RhqmcgfDetevksg codes; unclassified (1 source)Viral syndrome; Translations: [Other general symptoms and signs] 10-67-3308MsykqihjUdhiglgyhum failure; insufficiency; arrest (adult) (20 sources)Acute respiratory failure, unspecified whether with hypoxia or hypercapnia; Translations: [Acute hypoxemic and hypercapnic respiratory failure] Onset: 04-14-2023 Resolved: 117094-63-8962YzsjngdyRkwbkmimv and history of mental health and substance abuse codes (20 sources)Ex-smoker; Translations: [Personal history of nicotine dependence] Onset: 09-26-2022 Resolved: 536786-76-0995UckvogpqXbeps and face fractures (20 sources)Fracture of tooth ; Translations: [Fracture of tooth (traumatic), initial encounter for closed fracture]Onset: 474775-50-3425Otknyxif Spondylosis; intervertebral disc disorders; other back problems (20 sources)Spinal stenosis, lumbar region without neurogenic claudication; Translations: [Low back pain]Onset: 44-09-2281RsfakreaKeyyssalhhsu (1 source)Bilateral low back pain, unspecified chronicity, unspecified whether sciatica present M54.50Viral infection (20 sources)Disease caused by 2019-nCoV; Translations: [COVID-19]Onset: 04-15-2023 Resolved: 911088-79-7339Hcnhnqum Results Test NameValueInterpretationReference RangeFacilityCBC WITH AUTO DIFFERENTIALon [id number] ABSOLUTE COUNT (10*3/UL) BY AUTOMATED COUNT0.1 10*3/uLNormal 0.0-0.2[facility] on above:Result Comment: This is an appended report. These results have been appended to a previously preliminary verified report.Performed By: #### CMP #### [facility] ([address] [place] [address] VIRBASOPHILS RELATIVE PERCENT BY AUTOMATED COUNT1.1 %Normal [facility] on above:Result Comment: This is an appended report. These results have been appended to a previously preliminary verified report.Performed By: #### CMP #### [address] [place] [address] VIRCELLAVISION ANISOCYTOSIS IN BLOOD BY LIGHT MICROSCOPY2+ NormalProScenic Mountain Medical Center on above:Result Comment: This is an appended report. These results have been appended to a previously preliminary verified report.Performed By: #### CMP #### [facility] ([address] [place] [address] VIRCELLAVISION DIFFERENTIAL TYPEAUTOMATED DIFFERENTIALNormal [facility] on above:Result Comment: This is an appended report. These results have been appended to a previously preliminary verified report.Performed By: #### CMP #### [facility] ([address] [place] [address] VIRCELLAVISION ELLIPTOCYTES IN BLOOD BY LIGHT MICROSCOPY1+ NormalProScenic Mountain Medical Center on above:Result Comment: This is an appended report. These results have been appended to a previously preliminary verified report.Performed By: #### CMP #### [address] [place] [address] VIRCELLAVISION HYPOCHROMIA IN BLOOD BY LIGHT MICROSCOPY1+ NormalOhio [facility] Harding Hospital on above:Result Comment: This is an appended report. These results have been appended to a previously preliminary verified report.Performed By: #### CMP #### [facility] ([address] [address] VIRCELLAVISION TARGET CELLS IN BLOOD BY LIGHT MICROSCOPY1+ NormalOhio State Harding Hospital on above:Result Comment: This is an appended report. These results have been appended to a previously preliminary verified report.Performed By: #### CMP #### [facility] ([address] [address] VIREosinophils (Bld) [#/Vol]0.2 10*3/uLNormal0.0-0.4[facility] on above:Result Comment: This is an appended report. These results have been appended to a previously preliminary verified report. Performed By: #### CMP #### [address] [address] VIREOSINOPHILS RELATIVE PERCENT BY AUTOMATED COUNT1.4 %Normal [facility] on above:Result Comment: This is an appended report. These results have been appended to a previously preliminary verified report.Performed By: #### CMP #### [facility] ([address] [address] VIRErythrocyte distribution width (RBC) [Ratio]24.9 %High 11.5-15[facility] HospitalComhenry [facility] on above:Performed By: #### CMP #### [address] [address] VIRHematocrit (Bld) [Volume fraction]35.1 %Wtwyhr73-76 [facility] on above:Performed By: #### CMP #### [facility] ([address] [address] VIRHemoglobin (Bld) [Mass/Vol]10.7 g/dLLow11.7-15.5PPremier Health [facility] on above:Performed By: #### CMP #### [facility] ([address] [address] VIRLYMPHOCYTES ABSOLUTE COUNT (10*3/UL) BY AUTOMATED COUNT2.2 10*3/uLNormal1.0-3.5PPremier Health Miami [facility] Hospital [facility] on above:Result Comment: This is an appended report. These results have been appended to a previously preliminary verified report.Performed By: #### CMP #### [facility] ([address] [address] VIRLYMPHOCYTES RELATIVE PERCENT BY AUTOMATED COUNT19.1 %Normal [facility] on above:Result Comment: This is an appended report. These results have been appended to a previously preliminary verified report.Performed By: #### CMP #### [facility] ([address] [address] VIRH (RBC) [Entitic mass]20.8 xrXek90-70ZhbMbbjizCrescent Medical Center LancasterComment on above:Performed By: #### CMP #### [facility] ([address] [address] VIRMCHC (RBC) [Mass/Vol]30.5 g/fNLvv15-10MapDosrptMercy Health Lorain HospitalComhenry ford hospital on above:Performed By: #### CMP #### [facility] ([address] [address] VIRV (RBC) [Entitic vol]68 wYMic22-428FwrTnrlraCrescent Medical Center LancasterComment on above:Performed By: #### CMP #### [facility] ([address] [address] VIRMONOCYTES ABSOLUTE COUNT (10*3/UL) BY AUTOMATED COUNT0.7 10*3/uLNormal0.0-0.9[facility] on above:Result Comment: This is an appended report. These results have been appended to a previously preliminary verified report.Performed By: #### CMP #### [facility] ([address] [address] VIRMONOCYTES RELATIVE PERCENT BY AUTOMATED COUNT6.3 %Normal [facility] on above:Result Comment: This is an appended report. These results have been appended to a previously preliminary verified report.Performed By: #### CMP #### [facility] ([address] [address] VIRNEUTROPHILS ABSOLUTE COUNT BY AUTOMATED COUNT8.2 10*3/uL High1.5-6.6[facility] on above:Result Comment: This is an appended report. These results have been appended to a previously preliminary verified report.Performed By: #### CMP #### [address] [address] VIRNEUTROPHILS RELATIVE PERCENT BY AUTOMATED COUNT72.1 %Normal [facility] HospitalComhenry ford hospital on above:Result Comment: This is an appended report. These results have been appended to a previously preliminary verified report.Performed By: #### CMP #### [facility] ([address] [address] VIRPlatelet mean volume (Bld) [Entitic vol]8.4 fLNormal7-12 [facility] HospitalComhenry for[facility] hospital on above:Performed By: #### CMP #### [facility] ([address] [address] VIRPlatelets (Bld) [#/Vol]354 10*3/zHAtcppu070-267HlkPznqoo [facility] HospitalComhen[facility] on above:Performed By: #### CMP #### [facility] ([address] [address] VIRRBC COUNT5.16 X10E12/LNormal3.8-5.2[facility] Of Southern CaliforniaComment on above:Performed By: #### CMP #### [facility] ([place] [address] [place] [address] VIRWBC (Bld) [#/Vol]11.4 10*3/uLHigh4-11ProCrescent Medical Center LancasterComment on above:Performed By: #### CMP #### [facility] ([facility]) [facility] [place] [address] VIRCOMPREHENSIVE METABOLIC PANELon 78-49-2635Ffkirku [Mass/Vol]4.1 g/dLNormal3.2-5.3PHenry County HospitalComment on above: Performed By: #### CMP #### [facility] ([place] [address] [place] [address] VIRALP [Catalytic activity/Vol]82 U/GIegonr64-551LvcIkrllbCrescent Medical Center LancasterComment on above:Performed By: #### CMP #### [facility] ([place] [address] [place] [address] VIRALT [Catalytic activity/Vol]22 U/LNormal<=31PHenry County HospitalComment on above:Performed By: #### CMP #### [facility] ([place] [address] [place] [address] VIRAnion gap [Moles/Vol]14 mmol/LNormal5-15ProCrescent Medical Center LancasterComment on above:Performed By: #### CMP #### [facility] ([place] [address] [place] [address] VIRAST [Catalytic activity/Vol]21 U/LNormal<=41ProCrescent Medical Center LancasterComment on above:Performed By: #### CMP #### [facility] ([place] [address] [place] [address] VIRBilirubin [Mass/Vol]0.4 mg/dLNormal0.3-1.2[facility] HospitalComment on above:Performed By: #### CMP #### [facility] ([address] [place] [address] VIRCalcium [Mass/Vol]9.2 mg/dLNormal8.5-10.5PHenry County HospitalComment on above:Performed By: #### CMP #### [facility] ([address] [place] [address] VIRChloride [Moles/Vol]96 mmol/UBcy85-977YcyPluldyCrescent Medical Center LancasterComment on above:Performed By: #### CMP #### [address] [address] VIRCO2 [Moles/Vol]29 mmol/TWkgwla93-53GlwOosmvlHenry County HospitalComment on above:Performed By: #### CMP #### [address] [address] VIRCreatinine [Mass/Vol]1.53 mg/dLHigh0.40-1.00ProCrescent Medical Center LancasterComment on above:Result Comment: METHOD TRACEABLE TO IDMS STANDARDPerformed By: #### CMP #### [facility] ([address] [address] VIRGFR/1.73 sq M.predicted among non-blacks MDRD (S/P/Bld) [Vol rate/Area]38 mL/min/{1.73_m2}Low>=60ProCrescent Medical Center LancasterComment on above:Result Comment: eGFR not reported due to non-numeric value for Creatinine. Reported eGFR is based on the CKD-EPI 2021 equation that does not use a race coefficient.Performed By: #### CMP #### [facility] ([address] [address] VIRGlucose [Mass/Vol]103 mg/oETyjw88-95YccGpsqppCrescent Medical Center LancasterComment on above:Performed By: #### CMP #### [facility] ([facility]) [address] [place] [address] [place] [address] VIRPotassium [Moles/Vol]3.4 mmol/LLow3.5-5.0ProCrescent Medical Center LancasterComment on above:Performed By: #### CMP #### [facility] ([address] [place] [address] VIRProtein [Mass/Vol]7.6 g/dLNormal6.0-8.0ProCrescent Medical Center LancasterComment on above:Performed By: #### CMP #### [facility] ([address] [place] [address] VIRSodium [Moles/Vol]139 mmol/PJockkj351-964KhhJvxgxd [facility] HospitalComment on above:Performed By: #### CMP #### [facility] ([address] [place] [address] VIRUrea nitrogen [Mass/Vol]28 mg/dLHigh5-27ProCrescent Medical Center LancasterComment on above:Performed By: #### CMP #### [facility] ([address] [place] [address] VIRCT ABDOMEN AND PELVIS W CONTon 33-87-2102QV ABDOMEN AND PELVIS W CONTCT ABDOMEN AND PELVIS W CONT CLINICAL HISTORY: Abdominal pain. Rule out appendicitis. [...] by Saurabh Anderson MD on 02/22/2025 3:54 PMNormalProCrescent Medical Center LancasterLACTATE W/ REFLEXon [id number] W/REFLEX0.9 mmol/LNormal0.4-2.0 [facility] HospitalComhenry ford hospital on above:Order Comment: Result did not trigger repeat Lactate,re-order if needed.Performed By: #### CMP #### [address] [address] VIRLIPASEon 49-85-9203Sqssbe [Catalytic activity/Vol]40 U/L Mpjepb69-71DwfSnkkqhMercy Health Lorain HospitalComhenry ford hospital on above:Performed By: #### CMP #### [facility] ([address] [address] VIRMAGNESIUMon 62-96-7657Shvfnuale [Mass/Vol]2.3 mg/dLNormal 1.8-2.6[facility] HospitalComhenry ford hospital on above:Performed By: #### CMP #### [address] [address] VIRPOCT NURSING URINE MACROSCOPIC UAon 14-29-3286WSLHRUSEK JYOTI NegativeNormalNegativeProMedica Pittston HospitalComment on above:Performed By: #### CMP #### [facility] ([address] [address] VIRBLOOD/HGB NURTraceAbnormalNegativeMercy Health Lorain HospitalComment on above:Performed By: #### CMP #### [facility] ([address] [address] VIRGLUCOSE RHE826 mg/dLAbnormalNegativeMercy Health Lorain HospitalComment on above:Performed By: #### CMP #### [facility] ([address] [address] VIRKETONES NURNegativeNormalNegProMedica [facility] Hospital Comment on above:Performed By: #### CMP #### [facility] ([address] [address] VIRLEUKOCYTE ESTERASE NURNegativeNormalNegativeMercy Health Lorain HospitalComment on above:Performed By: #### CMP #### [facility] ([address] [address] VIRNITRITE NURNegativeNormalNegProMedica Bay Park Hospital Comment on above:Performed By: #### CMP #### [facility] ([address] [address] VIRPH NUR5.0Bfmvje0.0, 6.0, 6.5, 7.0, 7.5, 8.0, 8.5, 5.5 [facility] Lorain HospitalComment on above:Performed By: #### CMP #### [facility] ([address] [place] [address] VIRPROTEIN NURNegativeNofirsthealth montgomery memorial hospitalNegativeMercy Health [facility] Hospital Comment on above:Performed By: #### CMP #### [facility] ([address] [place] [address] VIRSPECIFIC GRAVITY NUR1.514Greggb7.010, 1.015, 1.020, 1.025 [facility] Lorain HospitalComment on above:Performed By: #### CMP #### [facility] ([address] [place] [address] VIRUROBILINOGEN NUR0.2 E.U./dLNormalMercy Health Lorain Hospital Comment on above:Performed By: #### CMP #### [facility] ([address] [place] [address] VIRBASIC METABOLIC PANELon 89-64-7028Rwscz gap [Moles/Vol]9 mmol/LNormal5-15[facility] HospitalComment on above:Performed By: #### CMP #### [address] [place] [address] VIRCalcium [Mass/Vol]9.6 mg/dLNormal8.5-10.5PHenry County HospitalComment on above:Performed By: #### CMP #### [address] [place] [address] VIRChloride [Moles/Vol]96 mmol/HAoh08-263OprErcotlMercy Health Lorain HospitalComment on above:Performed By: #### CMP #### [facility] ([address] [place] [address] VIRCO2 [Moles/Vol]35 mmol/JYvkf94-17IaaFtvclrHenry County Hospital Comment on above:Performed By: #### CMP #### [address] [place] [address] VIRCreatinine [Mass/Vol]1.17 mg/dLHigh0.40-1.00[facility] Lorain HospitalComment on above:Result Comment: METHOD TRACEABLE TO IDMS STANDARDPerformed By: #### CMP #### [facility] [place] [address] VIRGFR/1.73 sq M.predicted among non-blacks MDRD (S/P/Bld) [Vol rate/Area]53 mL/min/{1.73_m2}Low>=60ProCrescent Medical Center LancasterComment on above:Result Comment: Reported eGFR is based on the CKD-EPI 2020 equation that does not use a race coefficient.Performed By: #### CMP #### [facility] ([address] [place] [address] VIRGlucose [Mass/Vol]101 mg/cBEkcu73-44VbsRlsoreCrescent Medical Center LancasterComment on above:Performed By: #### CMP #### [address] [place] [address] VIRPotassium [Moles/Vol]3.3 mmol/LLow3.5-5.0ProCrescent Medical Center LancasterComment on above:Performed By: #### CMP #### [facility] ([address] [place] [address] VIRSodium [Moles/Vol]140 mmol/QAkdqot491-442PjxVdrppm [facility] HospitalComment on above:Performed By: #### CMP #### [address] [place] [address] VIRUrea nitrogen [Mass/Vol]16 mg/dLNormal5-27ProCrescent Medical Center LancasterComment on above:Performed By: #### CMP #### [address] [place] [address] VIRBASIC METABOLIC PANELon 42-28-9259Awotj gap [Moles/Vol]12 mmol/LNormal5-15ProCrescent Medical Center LancasterComment on above:Performed By: #### LACTS #### [facility] ([address] [place] [address] VIRCalcium [Mass/Vol]9.2 mg/dLNormal8.5-10.5PHenry County HospitalComment on above:Performed By: #### LACTS #### [facility] ([address] [place] [address] VIRChloride [Moles/Vol]97 mmol/OUcq98-777PduKwsvjpCrescent Medical Center LancasterComment on above:Performed By: #### LACTS #### [facility] ([address] [address] VIRCO2 [Moles/Vol]29 mmol/VIeatuu33-38PsnAweotdHenry County HospitalComment on above:Performed By: #### LACTS #### [facility] ([address] [address] VIRCreatinine [Mass/Vol]1.16 mg/dLHigh0.40-1.00ProCrescent Medical Center LancasterComment on above:Result Comment: METHOD TRACEABLE TO IDIA STANDARDPerformed By: #### LACTS #### [facility] ([address] [address] VIRGFR/1.73 sq M.predicted among non-blacks MDRD (S/P/Bld) [Vol rate/Area]53 mL/min/{1.73_m2}Low>=60ProCrescent Medical Center LancasterComment on above:Result Comment: eGFR not reported due to non-numeric value for Creatinine. Reported eGFR is based on the CKD-EPI 2021 equation that does not use a race coefficient.Performed By: #### LACTS #### [facility] ([address] [address] VIRGlucose [Mass/Vol]127 mg/uQNbue25-06VebMaiydbCrescent Medical Center LancasterComment on above:Performed By: #### LACTS #### [facility] ([address] [address] VIRPotassium [Moles/Vol]3.4 mmol/LLow3.5-5.0Mer[facility] Lor[facility] HospitalComment on above:Performed By: #### LACTS #### [facility] ([address] [address] VIRSodium [Moles/Vol]138 mmol/KWujork013-606XquRtijyq [facility] HospitalComhenry ford hospital on above:Performed By: #### LACTS #### [facility] ([address] [address] VIRUrea nitrogen [Mass/Vol]13 mg/dLNormal5-27ProCrescent Medical Center LancasterComment on above:Performed By: #### LACTS #### [facility] ([address] [address] VIRCBC WITH AUTO DIFFERENTIALon 42-30-0599IHRGLYREO ABSOLUTE COUNT (10*3/UL) BY AUTOMATED COUNT0.2 10*3/uLNormal0.0-0.2PHenry County HospitalComhenry ford hospital on above:Result Comment: This is an appended report. These results have been appended to a previously preliminary verified report.Performed By: #### LACTS #### [facility] ([address] [address] VIRBASOPHILS RELATIVE PERCENT BY AUTOMATED COUNT1.9 %Normal [facility] on above:Result Comment: This is an appended report. These results have been appended to a previously preliminary verified report.Performed By: #### LACTS #### [facility] ([address] [address] VIRCELLAVISION ANISOCYTOSIS IN BLOOD BY LIGHT MICROSCOPY2+ NormalOhio State Harding Hospital on above:Result Comment: This is an appended report. These results have been appended to a previously preliminary verified report.Performed By: #### LACTS #### [facility] ([address] [address] VIRCELLAVISION DIFFERENTIAL TYPEAUTOMATED DIFFERENTIALNormal [facility] on above:Result Comment: This is an appended report. These results have been appended to a previously preliminary verified report.Performed By: #### LACTS #### [facility] ([address] [address] VIRCELLAVISION ELLIPTOCYTES IN BLOOD BY LIGHT MICROSCOPY1+ NormalMercy Health Lorain HospitalComhenry ford hospital on above:Result Comment: This is an appended report. These results have been appended to a previously preliminary verified report.Performed By: #### LACTS #### [facility] ([address] [address] VIREosinophils (Bld) [#/Vol]0.2 10*3/uLNormal0.0-0.4[facility] on above:Result Comment: This is an appended report. These results have been appended to a previously preliminary verified report. Performed By: #### LACTS #### [facility] ([address] [address] VIREOSINOPHILS RELATIVE PERCENT BY AUTOMATED COUNT1.7 %Normal [facility] on above:Result Comment: This is an appended report. These results have been appended to a previously preliminary verified report.Performed By: #### LACTS #### [facility] ([address] [address] VIRErythrocyte distribution width (RBC) [Ratio]22.2 %High 11.5-15ProCrescent Medical Center LancasterComment on above:Performed By: #### LACTS #### [facility] ([address] [address] VIRHematocrit (Bld) [Volume fraction]34.6 %Hfl00-01XfwHhjkzdCrescent Medical Center LancasterComment on above:Performed By: #### LACTS #### [facility] ([address] [place] [address] VIRHemoglobin (Bld) [Mass/Vol]10.6 g/dLLow11.7-15.5PHenry County HospitalComment on above:Performed By: #### LACTS #### [facility] ([facility]) [address] [place] [address] VIRLYMPHOCYTES ABSOLUTE COUNT (10*3/UL) BY AUTOMATED COUNT2.2 10*3/uLNormal1.0-3.5PHenry County HospitalComment on above:Result Comment: This is an appended report. These results have been appended to a previously preliminary verified report.Performed By: #### LACTS #### [facility] ([address] [address] VIRLYMPHOCYTES RELATIVE PERCENT BY AUTOMATED COUNT23.0 %Normal [facility] HospitalComhenry ford hospital on above:Result Comment: This is an appended report. These results have been appended to a previously preliminary verified report.Performed By: #### LACTS #### [facility] ([address] [address] VIRMCH (RBC) [Entitic mass]20.0 obQen26-78FwfPqojmmCrescent Medical Center LancasterComment on above:Performed By: #### LACTS #### [facility] ([address] [address] VIRMCHC (RBC) [Mass/Vol]30.6 g/qOXez46-81EnqYapcfwCrescent Medical Center LancasterComment on above:Performed By: #### LACTS #### [facility] ([address] [address] VIRMCV (RBC) [Entitic vol]65 zASvn65-187UldCixhznCrescent Medical Center LancasterComment on above:Performed By: #### LACTS #### [facility] ([address] [address] VIRMONOCYTES ABSOLUTE COUNT (10*3/UL) BY AUTOMATED COUNT0.4 10*3/uLNormal0.0-0.9[facility] on above:Result Comment: This is an appended report. These results have been appended to a previously preliminary verified report.Performed By: #### LACTS #### [facility] ([address] [address] VIRMONOCYTES RELATIVE PERCENT BY AUTOMATED COUNT4.1 %Normal [facility] on above:Result Comment: This is an appended report. These results have been appended to a previously preliminary verified report.Performed By: #### LACTS #### [address] [address] VIRNEUTROPHILS ABSOLUTE COUNT BY AUTOMATED COUNT6.6 10*3/uL Normal1.5-6.6[facility] on above:Result Comment: This is an appended report. These results have been appended to a previously preliminary verified report.Performed By: #### LACTS #### [facility] ([address] [address] VIRNEUTROPHILS RELATIVE PERCENT BY AUTOMATED COUNT69.3 %Normal [facility] on above:Result Comment: This is an appended report. These results have been appended to a previously preliminary verified report.Performed By: #### LACTS #### [facility] ([address] [address] VIRPlatelet mean volume (Bld) [Entitic vol]8.4 fLNormal7-12 [facility] on above:Performed By: #### LACTS #### [facility] ([address] [address] VIRPlatelets (Bld) [#/Vol]360 10*3/aSCtcfyz685-095RcvJiiuxg [facility] HospitalComment on above:Performed By: #### LACTS #### [facility] ([facility]) [address] [place] [address] VIRRBC COUNT5.30 X10E12/LHigh3.8-5.2[facility] Comment on above:Performed By: #### LACTS #### [facility] ([facility]) [address] [address] VIRWBC (Bld) [#/Vol]9.6 10*3/uLNormal4-11[facility] Of Southern CaliforniaComment on above:Performed By: #### LACTS #### [facility] ([facility]) [address] [place] [address] VIRCT ABDOMEN AND PELVIS W CONTon 60-81-7190DZ ABDOMEN AND PELVIS W CONTCT ABDOMEN AND [...] by Cesario Cooley MD on 02/09/2025 3:45 PMNormalMercy Health Lorain Hospital LIPASEon 33-37-7712Ntkhpd [Catalytic activity/Vol]41 U/JJynr94-77IqiNwbkemCrescent Medical Center LancasterComment on above:Performed By: #### LACTS #### [facility] ([place] [address] [place] [address] VIRLIVER PANELon 56-09-5060Lqdspxm [Mass/Vol]4.2 g/dLNormal 3.2-5.3PHenry County HospitalComment on above:Performed By: #### LACTS #### [facility] ([address] [place] [address] VIRALP [Catalytic activity/Vol]89 U/QXjjhes22-064SluDojzkwCrescent Medical Center LancasterComment on above:Performed By: #### LACTS #### [facility] ([address] [address] VIRALT [Catalytic activity/Vol]17 U/LNormal<=31PHenry County HospitalComment on above:Performed By: #### LACTS #### [facility] ([place] [address] [place] [address] VIRAST [Catalytic activity/Vol]20 U/LNormal<=41ProCrescent Medical Center LancasterComment on above:Performed By: #### LACTS #### [facility] ([place] [address] [place] [address] VIRBilirubin [Mass/Vol]0.7 mg/dLNormal0.3-1.2PHenry County HospitalComment on above:Performed By: #### LACTS #### [facility] ([place] [address] [place] [address] VIRBilirubin.indirect [Mass/Vol]0.1 mg/dLNormal<=0.4ProCrescent Medical Center LancasterComment on above:Performed By: #### LACTS #### [facility] ([address] [place] [address] VIRProtein [Mass/Vol]7.9 g/dLNormal6.0-8.0ProCrescent Medical Center LancasterComment on above:Performed By: #### LACTS #### [facility] ([address] [place] [address] VIRBASIC METABOLIC PANELon 54-15-8857Ltwxk gap [Moles/Vol]9 mmol/LNormal5-15ProCrescent Medical Center LancasterComment on above:Performed By: #### LACTS #### [facility] ([address] [place] [address] VIRCalcium [Mass/Vol]9.1 mg/dLNormal8.5-10.5PHenry County HospitalComment on above:Performed By: #### LACTS #### [facility] ([address] [place] [address] VIRChloride [Moles/Vol]102 mmol/GLzokwy18-754FeoCgwpjyCrescent Medical Center LancasterComment on above:Performed By: #### LACTS #### [facility] ([address] [place] [address] VIRCO2 [Moles/Vol]31 mmol/CIfzcjq36-18BdySrtjxsHenry County HospitalComment on above:Performed By: #### LACTS #### [facility] ([address] [place] [address] VIRCreatinine [Mass/Vol]1.27 mg/dLHigh0.40-1.00ProCrescent Medical Center LancasterComment on above:Result Comment: METHOD TRACEABLE TO IDMS STANDARDPerformed By: #### LACTS #### [facility] ([address] [place] [address] VIRGFR/1.73 sq M.predicted among non-blacks MDRD (S/P/Bld) [Vol rate/Area]48 mL/min/{1.73_m2}Low>=60ProCrescent Medical Center LancasterComment on above:Result Comment: Reported eGFR is based on the CKD-EPI 2020 equation that does not use a race coefficient.Performed By: #### LACTS #### [facility] ([address] [place] [address] VIRGlucose [Mass/Vol]91 mg/gQFwijbm13-86FueHwbvuhCrescent Medical Center LancasterComment on above:Performed By: #### LACTS #### [facility] ([address] [place] [address] VIRPotassium [Moles/Vol]4.2 mmol/LNormal3.5-5.0ProCrescent Medical Center LancasterComment on above:Performed By: #### LACTS #### [facility] ([address] [place] [address] VIRSodium [Moles/Vol]142 mmol/ZZqfpaq277-610ViiLdhpao Fremont HospitalComment on above:Performed By: #### LACTS #### [facility] ([address] [place] [address] VIRUrea nitrogen [Mass/Vol]16 mg/dLNormal5-27ProCrescent Medical Center LancasterComment on above:Performed By: #### LACTS #### [facility] ([address] [place] [address] VIRBasic Metabolic Panelon 49-37-2217Rkvva gap [Moles/Vol]9 mmol/L5 - 15 mmol/LProMedica Health SystemCalcium [Mass/Vol]9.1 mg/dL8.5 - 10.5 mg/dLProMedica Health SystemChloride [Moles/Vol]102 mmol/L98 - 109 mmol/L [facility] SystemCO2 [Moles/Vol]31 mmol/L22 - 32 mmol/LPrPremier Health Miami Valley Hospital SystemCreatinine [Mass/Vol]1.27 mg/dLHigh0.40 - 1.00 mg/dLOhioHealth Van Wert HospitalComment on above:METHOD TRACEABLE TO IDMS STANDARDEGFR Non-Race Dependent 48Low- PINMercy Health St. Joseph Warren Hospital SystemComment on above:Reported eGFR is based on the CKD-EPI 2020 equation that does not use a race coefficient. Glucose [Mass/Vol]91 mg/dL65 - 99 mg/dLOhioHealth Van Wert HospitalInterpretation and review of laboratory resultsAbnormalOhioHealth Van Wert HospitalPotassium [Moles/Vol]4.2 mmol/L3.5 - 5.0 mmol/[facility] SystemSodium [Moles/Vol] 142 mmol/L134 - 146 mmol/[facility] SystemUrea nitrogen [Mass/Vol]16 mg/dL5 - 27 mg/dLWilkes-Barre General HospitalBASIC METABOLIC PANELon 79-77-1758Avdca gap [Moles/Vol]8 mmol/LNormal5-15[facility]ulatory PPGComment on above:Performed By: #### BMP #### [facility] ([facility]) [address] [place] [address] VIRCalcium [Mass/Vol]9.0 mg/dLMonroeville8.5-10.5PSCCI [facility] Ambulatory PPGComment on above:Performed By: #### BMP #### [facility] ([facility]) [address] [place] [address] VIRChloride [Moles/Vol]101 mmol/ZEzzizm30-290BnoRxebyw Hospital Ambulatory PPGComment on above:Performed By: #### BMP #### [facility] ([facility]) [address] [place] [address] VIRCO2 [Moles/Vol]33 mmol/KBzdo75-07NoqCwczvl Hospital Ambulatory PPGComment on above:Performed By: #### BMP #### [facility] ([facility]) [address] [place] [address] VIRCreatinine [Mass/Vol]1.32 mg/dLHigh0.40-1.00[facility] Ambulatory PPGComment on above:Result Comment: METHOD TRACEABLE TO IDMS STANDARDPerformed By: #### BMP #### [facility] ([facility]) [address] [place] [address] VIRGFR/1.73 sq M.predicted among non-blacks MDRD (S/P/Bld) [Vol rate/Area]46 mL/min/{1.73_m2}Low>=60ProCleveland Clinic [facility] Ambulatory PPGComment on above:Result Comment: Reported eGFR is based on the CKD-EPI 2020 equation that does not use a race coefficient.Performed By: #### BMP #### [facility] ([facility]) [address] [place] [address] VIRGlucose [Mass/Vol]106 mg/rMJhpw42-36BiqXbwsme Hospital Ambulatory PPGComment on above:Performed By: #### BMP #### [facility] ([facility]) [address] [place] [address] VIRPotassium [Moles/Vol]4.5 mmol/LNormal3.5-5.0[facility] Ambulatory PPGComment on above:Performed By: #### BMP #### [facility] ([facility]) [address] [place] [address] VIRSodium [Moles/Vol]142 mmol/YGeygco164-064PqqMwwsnn Hospital Ambulatory PPGComment on above:Performed By: #### BMP #### [facility] ([facility]) [address] [place] [address] VIRUrea nitrogen [Mass/Vol]21 mg/dLNormal5-27[facility] Ambulatory PPGComment on above:Performed By: #### BMP #### [facility] ([facility]) [address] [place] [address] VIRBasic Metabolic Panelon 59-34-3596Pdagc gap [Moles/Vol]8 mmol/L5 - 15 mmol/LProMedica Health SystemCalcium [Mass/Vol]9 mg/dL8.5 - 10.5 mg/dLChildren's Hospital for Rehabilitation SystemChloride [Moles/Vol]101 mmol/L98 - 109 mmol/L [facility] SystemCO2 [Moles/Vol]33 mmol/LHigh22 - 32 mmol/LPrPremier Health Miami Valley Hospital SystemCreatinine [Mass/Vol]1.32 mg/dLHigh0.40 - 1.00 mg/dLOhioHealth Van Wert HospitalComment on above:METHOD TRACEABLE TO IDIA STANDARDEGFR Non-Race Zjxvkurce80Qbm- PINFPSouthview Medical CenterComment on above:Reported eGFR is based on the CKD-EPI 2020 equation that does not use a race coefficient. Glucose [Mass/Vol]106 mg/dCCpqd83 - 99 mg/dLOhioHealth Van Wert Hospital Interpretation and review of laboratory resultsAbnoCape Fear/Harnett Health Potassium [Moles/Vol]4.5 mmol/L3.5 - 5.0 mmol/LPrSt. Thomas More Hospital Health SystemSodium [Moles/Vol]142 mmol/L134 - 146 mmol/[facility] SystemUrea nitrogen [Mass/Vol]21 mg/dL5 - 27 mg/dLWilkes-Barre General Hospital BASIC METABOLIC PANELon 27-48-5370Ulftz gap [Moles/Vol]10 mmol/LNormal5-15 [facility] Lorain HospitalComment on above:Performed By: #### LACTS #### [facility] ([address] [place] [address] VIRCalcium [Mass/Vol]9.6 mg/dLNormal8.5-10.5PHenry County HospitalComment on above:Performed By: #### LACTS #### [facility] ([address] [place] [address] VIRChloride [Moles/Vol]98 mmol/OKkxfmu97-547LvbIsqmvqMercy Health Lorain HospitalComment on above:Performed By: #### LACTS #### [facility] ([address] [place] [address] VIRCO2 [Moles/Vol]35 mmol/AGedi79-08DnmJktwzvDesert Regional Medical Center Comment on above:Performed By: #### LACTS #### [facility] ([address] [address] VIRCreatinine [Mass/Vol]1.47 mg/dLHigh0.40-1.00ProCrescent Medical Center LancasterComment on above:Result Comment: METHOD TRACEABLE TO IDMS STANDARDPerformed By: #### LACTS #### [facility] ([address] [address] VIRGFR/1.73 sq M.predicted among non-blacks MDRD (S/P/Bld) [Vol rate/Area]40 mL/min/{1.73_m2}Low>=60ProCrescent Medical Center LancasterComment on above:Result Comment: Reported eGFR is based on the CKD-EPI 2020 equation that does not use a race coefficient.Performed By: #### LACTS #### [facility] ([address] [address] VIRGlucose [Mass/Vol]110 mg/hYDtam82-59QmvTroopzCrescent Medical Center LancasterComment on above:Performed By: #### LACTS #### [facility] ([address] [address] VIRPotassium [Moles/Vol]4.5 mmol/LNormal3.5-5.0ProCrescent Medical Center LancasterComment on above:Performed By: #### LACTS #### [facility] ([address] [address] VIRSodium [Moles/Vol]143 mmol/GTsofpc491-282FqeDseaxj [facility]ont HospitalComment on above:Performed By: #### LACTS #### [facility] ([address] [address] VIRUrea nitrogen [Mass/Vol]23 mg/dLNormal5-27ProCrescent Medical Center LancasterComment on above:Performed By: #### LACTS #### [facility] ([address] [place] [address] VIRBASIC METABOLIC PANELon 21-47-0957Mtueb gap [Moles/Vol]6 mmol/LNormal5-15Mer[facility] Lorain HospitalComment on above:Performed By: #### VBG #### [facility] ([address] [place] [address] VIRCalcium [Mass/Vol]9.2 mg/dLNormal8.5-10.5PHenry County HospitalComment on above:Performed By: #### VBG #### [facility] ([address] [place] [address] VIRChloride [Moles/Vol]103 mmol/WIyzlee36-279WgcTaptzhCrescent Medical Center LancasterComment on above:Performed By: #### VBG #### [facility] ([address] [place] [address] VIRCO2 [Moles/Vol]34 mmol/HAkif16-68QtaRgvspsHenry County Hospital Comment on above:Performed By: #### VBG #### [facility] ([address] [place] [address] VIRCreatinine [Mass/Vol]0.84 mg/dLNormal0.40-1.00ProCrescent Medical Center LancasterComment on above:Result Comment: METHOD TRACEABLE TO IDMS STANDARDPerformed By: #### VBG #### [facility] ([address] [place] [address] VIRGFR/1.73 sq M.predicted among non-blacks MDRD (S/P/Bld) [Vol rate/Area]79 mL/min/{1.73_m2}Normal>=60ProCrescent Medical Center LancasterComment on above:Result Comment: eGFR not reported due to non-numeric value for Creatinine. Reported eGFR is based on the CKD-EPI 2020 equation that does not use a race coefficient.Performed By: #### VBG #### [facility] ([address] [place] [address] VIRGlucose [Mass/Vol]126 mg/iOZrxo09-16CiuJhcsotCrescent Medical Center LancasterComment on above:Performed By: #### VBG #### [facility] ([address] [place] [address] VIRPotassium [Moles/Vol]4.3 mmol/LNormal3.5-5.0ProCrescent Medical Center LancasterComment on above:Performed By: #### VBG #### [facility] ([address] [place] [address] VIRSodium [Moles/Vol]143 mmol/ECmqcvu643-695MbzMzgzfn [facility]ont HospitalComment on above:Performed By: #### VBG #### [facility] ([address] [place] [address] VIRUrea nitrogen [Mass/Vol]24 mg/dLNormal5-27ProCrescent Medical Center LancasterComment on above:Performed By: #### VBG #### [facility] ([address] [place] [address] VIRBLOOD GAS, VENOUSon 35-27-5554UTXK,LUSJOR56.0 mmol/LHigh 0.0-2.0ProCrescent Medical Center LancasterComment on above:Performed By: #### LACTS #### [facility] ([address] [place] [address] VIRHCO3 (Bld) [Moles/Vol]37.4 mmol/LHigh20.0-24.0Mer[facility] Lorain HospitalComment on above:Performed By: #### LACTS #### [facility] ([address] [place] [address] VIROxygen saturation in Blood80.0 %NormalProCrescent Medical Center LancasterComment on above:Performed By: #### LACTS #### [facility] ([address] [place] [address] VIRPCO2 JFFMJF24.6 xoKaUmwn53.0-50.0[facility] Comment on above:Performed By: #### LACTS #### [facility] ([address] [place] [address] VIRPH VENOUS7.284Xzepzt0.320-7.420[facility] Comment on above:Performed By: #### LACTS #### [facility] ([address] [place] [address] VIRPO2 HFTTZH26 lgXcAydcri50-17XalBktipaMercy Health Lorain Hospital Comment on above:Performed By: #### LACTS #### [facility] ([address] [place] [address] VIRPOC RAVINDRA'S TESTN/ANormalProCrescent Medical Center LancasterComment on above:Performed By: #### LACTS #### [facility] ([address] [place] [address] VIRSAMPLE SITEN/ANormalMercy Health Lorain HospitalComment on above:Performed By: #### LACTS #### [facility] ([address] [place] [address] VIRSAMPLE TYPEVENOUSNormalMercy Health Lorain HospitalComment on above:Performed By: #### LACTS #### [facility] ([address] [place] [address] VIRSOURCE OF OXYGENNCNormalMercy Health Lorain HospitalComment on above:Performed By: #### LACTS #### [facility] ([address] [place] [address] VIRBLOOD GAS, VENOUSVBG BLOOD GAS, VENOUS CancelledNormal [facility]ain HospitalPHOSPHORUSon 67-50-0633Nhaycxibq [Mass/Vol]3.1 mg/dL Normal2.4-4.9Mer[facility] Lorain HospitalComment on above:Performed By: #### LACTS #### [facility] ([address] [place] [address] VIRBASIC METABOLIC PANELon 74-24-2256Gwggd gap [Moles/Vol]7 mmol/LNormal5-15ProCrescent Medical Center LancasterComment on above:Performed By: #### VBG #### [facility] ([address] [place] [address] VIRCalcium [Mass/Vol]8.8 mg/dLNormal8.5-10.5PHenry County HospitalComment on above:Performed By: #### VBG #### [facility] ([address] [place] [address] VIRChloride [Moles/Vol]96 mmol/YDqd96-484EzyQckvhtCrescent Medical Center LancasterComment on above:Performed By: #### VBG #### [facility] ([address] [place] [address] VIRCO2 [Moles/Vol]34 mmol/NYjud86-74OohKkhjjaHenry County Hospital Comment on above:Performed By: #### VBG #### [facility] ([address] [place] [address] VIRCreatinine [Mass/Vol]0.91 mg/dLNormal0.40-1.00ProCrescent Medical Center LancasterComment on above:Result Comment: METHOD TRACEABLE TO IDMS STANDARDPerformed By: #### VBG #### [facility] ([address] [place] [address] VIRGFR/1.73 sq M.predicted among non-blacks MDRD (S/P/Bld) [Vol rate/Area]71 mL/min/{1.73_m2}Normal>=60ProCrescent Medical Center LancasterComment on above:Result Comment: eGFR not reported due to non-numeric value for Creatinine. Reported eGFR is based on the CKD-EPI 2021 equation that does not use a race coefficient.Performed By: #### VBG #### [facility] ([address] [place] [address] VIRGlucose [Mass/Vol]140 mg/oBSnxe57-19XupPqjjrcCrescent Medical Center LancasterComment on above:Performed By: #### VBG #### [facility] ([address] [place] [address] VIRPotassium [Moles/Vol]4.0 mmol/LNormal3.5-5.0ProCrescent Medical Center LancasterComment on above:Performed By: #### VBG #### [address] [address] VIRSodium [Moles/Vol]137 mmol/FGpxrnd725-805TurQtjapn Fremont HospitalComment on above:Performed By: #### VBG #### [address] [place] [address] VIRUrea nitrogen [Mass/Vol]19 mg/dLNormal5-27ProCrescent Medical Center LancasterComment on above:Performed By: #### VBG #### [address] [place] [address] VIRBEDSIDE GLUCOSEon 42-13-5079Fkfeilm [Mass/Vol]147 mg/dLHigh 65-99ProCrescent Medical Center LancasterComment on above:Performed By: #### VBG #### [facility] ([address] [place] [address] VIRGlucose [Mass/Vol]144 mg/aXGdcn24-18VfnMaxjqmCrescent Medical Center LancasterComment on above:Performed By: #### VBG #### [facility] ([address] [place] [address] VIRBLOOD GAS, VENOUSon 74-43-9401NMFO,EXCESS7.0 mmol/LHigh 0.0-2.0Mer[facility] Lor[facility] HospitalComment on above:Performed By: #### VBG #### [facility] ([address] [place] [address] VIRHCO3 (Bld) [Moles/Vol]34.7 mmol/LHigh20.0-24.0Mer[facility] Lorain HospitalComment on above:Performed By: #### VBG #### [facility] ([address] [place] [address] VIROxygen saturation in Blood81.0 %NormalProCrescent Medical Center LancasterComment on above:Performed By: #### VBG #### [address] [place] [address] VIRPCO2 KZZVRM53.3 jxIjJebd44.0-50.0[facility] Comment on above:Performed By: #### VBG #### [facility] ([address] [place] [address] VIRPH VENOUS7.826Msomzr8.320-7.420[facility] Comment on above:Performed By: #### VBG #### [facility] ([address] [place] [address] VIRPO2 UHGTFO09 adZyUomgpm53-64RieYidormMercy Health Lorain Hospital Comment on above:Performed By: #### VBG #### [facility] ([address] [place] [address] VIRPOC RAVINDRA'S TESTN/ANormalProCrescent Medical Center LancasterComment on above:Performed By: #### VBG #### [facility] ([address] [place] [address] VIRSAMPLE SITEN/ANormalProCrescent Medical Center LancasterComhenry ford hospital on above:Performed By: #### VBG #### [facility]TRALM[facility] ([facility]) [address] [place] [address]. [place] [address] VIRSAMPLE TYPEVENOUSNoMcKitrick HospitalComhenry ford hospital on above:Performed By: #### VBG #### [facility]TR[facility] ([facility]) [address] [place] [address]. [place] [address] VIRSOURCE OF OXYGENNCNormalMercy Health Lorain HospitalComhenry [facility] on above:Performed By: #### VBG #### [facility] ([address] [place] [address] VIRBLOOD GAS, VENOUSVBG BLOOD GAS, VENOUS CancelledNormal [facility] WITH AUTO DIFFERENTIALon [id number] ABSOLUTE COUNT (10*3/UL) BY AUTOMATED COUNT0.0 10*3/uLNormal0.0-0.2[facility] on above:Result Comment: This is an appended report. These results have been appended to a previously preliminary verified report. Performed By: #### VBG #### [facility] ([address] [place] [address] VIRBASOPHILS RELATIVE PERCENT BY AUTOMATED COUNT0.2 %Normal [facility] on above:Result Comment: This is an appended report. These results have been appended to a previously preliminary verified report.Performed By: #### VBG #### [facility] ([address] [place] [address] VIRCELLAVISION ANISOCYTOSIS IN BLOOD BY LIGHT MICROSCOPY2+ [facility] on above:Result Comment: This is an appended report. These results have been appended to a previously preliminary verified report.Performed By: #### VBG #### [facility] ([address] [place] [place] [address] VIRCELLAVISION DIFFERENTIAL TYPEAUTOMATED DIFFERENTIALNormal [facility] on above:Result Comment: This is an appended report. These results have been appended to a previously preliminary verified report.Performed By: #### VBG #### [facility] ([facility]) [address] [place] [address] VIRCELLAVISION MICROCYTES IN BLOOD BY LIGHT MICROSCOPY2+Normal [facility] on above:Result Comment: This is an appended report. These results have been appended to a previously preliminary verified report.Performed By: #### VBG #### [facility] ([address] [address] VIRCELLAVISION RBC MORPHOLOGYabnormalNormalOhio State Harding Hospital on above:Result Comment: This is an appended report. These results have been appended to a previously preliminary verified report.Performed By: #### VBG #### [facility] ([facility]) [address] [place] [address] VIRCELLAVISION STOMATOCYTES IN BLOOD BY LIGHT MICROSCOPY3+ NormalOhio [facility]ing [facility] on above:Result Comment: This is an appended report. These results have been appended to a previously preliminary verified report.Performed By: #### VBG #### [facility] ([address] [address] VIREosinophils (Bld) [#/Vol]0.0 10*3/uLNormal0.0-0.4[facility] on above:Result Comment: This is an appended report. These results have been appended to a previously preliminary verified report. Performed By: #### VBG #### [facility] ([facility]) [address] [place] [address] VIREOSINOPHILS RELATIVE PERCENT BY AUTOMATED COUNT0.0 %Normal [facility] on above:Result Comment: This is an appended report. These results have been appended to a previously preliminary verified report.Performed By: #### VBG #### [facility] ([address] [address] VIRErythrocyte distribution width (RBC) [Ratio]19.6 %High 11.5-15[facility]ain HospitalComment on above:Performed By: #### VBG #### [facility] ([address] [address] VIRHematocrit (Bld) [Volume fraction]27.7 %Mbd90-68GhgYvolzgCrescent Medical Center LancasterComment on above:Performed By: #### VBG #### [facility] ([address] [address] VIRHemoglobin (Bld) [Mass/Vol]8.2 g/dLLow11.7-15.5PHenry County HospitalComment on above:Performed By: #### VBG #### [facility] ([address] [address] VIRLYMPHOCYTES ABSOLUTE COUNT (10*3/UL) BY AUTOMATED COUNT0.5 10*3/uLLow1.0-3.5PHenry County HospitalComment on above:Result Comment: This is an appended report. These results have been appended to a previously prelimi nary verified report.Performed By: #### VBG #### [facility] ([address] [address] VIRLYMPHOCYTES RELATIVE PERCENT BY AUTOMATED COUNT5.3 %Normal [facility] Lorain HospitalComhenry ford hospital on above:Result Comment: This is an appended report. These results have been appended to a previously preliminary verified report.Performed By: #### VBG #### [facility] ([address] [address] VIRMCH (RBC) [Entitic mass]19.4 pwIbq21-45ApkHqaxcgCrescent Medical Center LancasterComment on above:Performed By: #### VBG #### [facility] ([place] [address] [facility] [place] [address] VIRMCHC (RBC) [Mass/Vol]29.7 g/gDHij87-28EmdUetcxdCrescent Medical Center LancasterComment on above:Performed By: #### VBG #### [facility] ([address] [address] VIRMCV (RBC) [Entitic vol]65 lBEbi71-122VocSpzviiCrescent Medical Center LancasterComment on above:Performed By: #### VBG #### [facility] ([address] [address] VIRMONOCYTES ABSOLUTE COUNT (10*3/UL) BY AUTOMATED COUNT0.2 10*3/uLNormal0.0-0.9ProSc[facility] on above:Result Comment: This is an appended report. These results have been appended to a previously preliminary verified report.Performed By: #### VBG #### [facility] ([address] [address] VIRMONOCYTES RELATIVE PERCENT BY AUTOMATED COUNT2.3 %Normal [facility] HospitalComhenry ford hospital on above:Result Comment: This is an appended report. These results have been appended to a previously preliminary verified report.Performed By: #### VBG #### [facility] ([address] [address] VIRNEUTROPHILS ABSOLUTE COUNT BY AUTOMATED COUNT8.3 10*3/uL High1.5-6.6ProCrescent Medical Center LancasterComhenry ford hospital on above:Result Comment: This is an appended report. These results have been appended to a previously preliminary verified report.Performed By: #### VBG #### [facility] ([address] [address] VIRNEUTROPHILS RELATIVE PERCENT BY AUTOMATED COUNT92.2 %Normal [facility] HospitalComhenry ford hospital on above:Result Comment: This is an appended report. These results have been appended to a previously preliminary verified report.Performed By: #### VBG #### [facility] ([address] [address] VIRPlatelet mean volume (Bld) [Entitic vol]7.3 fLNormal7-12 [facility]ain HospitalComment on above:Performed By: #### VBG #### [facility] ([address] [address] VIRPlatelets (Bld) [#/Vol]238 10*3/rOTbaxuy582-198UsmEpazulMercy Health Lorain HospitalComment on above:Performed By: #### VBG #### [facility] ([address] [address] VIRRBC COUNT4.24 X10E12/LNormal3.8-5.2ProMed[facility] Methodist Hospital Of Southern CaliforniaComment on above:Performed By: #### VBG #### [facility] ([address] [address] VIRWBC (Bld) [#/Vol]9.1 10*3/uLNormal4-11[facility] HospitalComment on above:Performed By: #### VBG #### [facility] ([address] [address] VIRLOWER RESP CULTURE SPUTUM CULTURE INC GRAM STAINon [id number] RESP CULTURE SPUTUM CULTURE INC GRAM STAINCULTURE RESULTS CULTURE CANCELLED. SPECIMEN DOES NOT MEET CRITERIA FOR CULTURING. PLEASE REORDER AND RESUBMIT. GRAM STAIN >25 Squamous Epithelial Cells/LPF with Mixed Bacterial Types Seen. Regarded as Saliva not SputumNormalMercy Health Lorain HospitalComment on above:Performed By: #### LACTS #### [facility] ([address] [address] VIRPHOSPHORUSon 23-91-1938Dvgnjfwxg [Mass/Vol]2.3 mg/dLLow 2.4-4.9ProCrescent Medical Center LancasterComment on above:Performed By: #### VBG #### [facility] ([facility]) [address] [place] [address] [place] [address] VIRB-TYPE NATRIURETIC PEPTIDEon 82-20-6311Etpbyqnsydg peptide B (Bld) [Mass/Vol]259 pg/mLHigh<=100ProCrescent Medical Center LancasterComment on above: Performed By: #### BMP #### [facility] ([facility]) [address] [place] [address] VIRBEDSIDE GLUCOSEon 82-90-0754Emrfdpn [Mass/Vol]125 mg/dLHigh 65-99ProCrescent Medical Center LancasterComment on above:Performed By: #### VBG #### [facility] ([address] [address] VIRGlucose [Mass/Vol]165 mg/lNVdxv69-40MxcRuhzfl [facility]ont HospitalComment on above:Performed By: #### VBG #### [facility] ([address] [place] [address] VIRGlucose [Mass/Vol]196 mg/zJGhys62-80TkrTeytsy [facility] HospitalComment on above:Performed By: #### BMP #### [facility] ([facility]) [address] [place] [address] VIRGlucose [Mass/Vol]167 mg/nEGuvy38-89OkfPleqdx [facility] HospitalComment on above:Performed By: #### BMP #### [facility] ([facility]) [address] [place] [address] VIRBLOOD GAS, VENOUSon 60-21-6109UIAS,EXCESS7.0 mmol/LHigh 0.0-2.0ProCrescent Medical Center LancasterComment on above:Performed By: #### BMP #### [facility] ([facility]) [address] [place] [address] VIRHCO3 (Bld) [Moles/Vol]36.1 mmol/LHigh20.0-24.0Mer[facility] Lorain HospitalComment on above:Performed By: #### BMP #### [facility] ([facility]) [address] [place] [address] VIRINSP. O2 CONC.50 %[facility] Medical CenterComment on above:Performed By: #### BMP #### [facility] ([facility]) [address] [place] [address] VIROxygen saturation in Blood38.0 %[facility] Medical CenterComment on above:Performed By: #### BMP #### [facility] ([facility]) [address] [place] [address] VIRPCO2 WRIHOY44.0 twCmPepd00.0-50.0[facility] Comment on above:Performed By: #### BMP #### [facility] ([facility]) [address] [place] [address] VIRPH VENOUS7.493Ocy3.320-7.420[facility] Comment on above:Performed By: #### BMP #### [facility] ([facility]) [address] [place] [address] VIRPO2 OEJFBB24 avTkOqj19-53YjpOdzsozMercy Health Lorain HospitalComment on above:Performed By: #### BMP #### [facility] ([facility]) [address] [place] [address] VIRPOC RAVINDRA'S TESTN/ANormalMercy Health Lorain HospitalComment on above:Performed By: #### BMP #### [facility] ([facility]) [address] [place] [address] VIRSAMPLE SITEN/ANormalProCrescent Medical Center LancasterComment on above:Performed By: #### BMP #### [facility] ([facility]) [address] [place] [address] VIRSAMPLE TYPEVENOUSNormalMercy Health Lorain HospitalComment on above:Performed By: #### BMP #### [facility] ([facility]) [address] [place] [address] VIRSOURCE OF OXYGENNCNormalMercy Health Lorain HospitalComment on above:Performed By: #### BMP #### [facility] ([facility]) [address] [place] [address] VIRBLOOD GAS, VENOUSVBG BLOOD GAS, VENOUS CancelledNormal [facility] HospitalBASE,EXCESS6.0 mmol/LHigh0.0-2.0[facility]ain HospitalComment on above:Performed By: #### VBG ####[facility] ([facility])[address] [facility] [place] [address] VIRHCO3 (Bld) [Moles/Vol]38.1 mmol/LHigh20.0-24.0[facility] Lorain HospitalComment on above:Performed By: #### VBG ####[facility] ([facility])[address] [place] [address] VIRINSP. O2 CONC.40 %[facility] Comment on above:Performed By: #### VBG ####[facility] ([facility])[address] [place] [address].[place] [address] VIROxygen saturation in Blood38.0 % [facility] Medical CenterComment on above:Performed By: #### VBG ####[facility] ([facility])[address] [place] [address].[place], [place] [address] VIRPCO2 RLGZJD597.3 slLkEsbi68.0-50.0Mer[facility] HospitalComment on above:Performed By: #### VBG ####[facility] ([facility])[address] [place] [address].[place] [address] VIRPH VENOUS7.572Ejl9.320-7.420ProMedica Pittston HospitalComment on above:Performed By: #### VBG ####RAYOHIO STATE HARDING HOSPITALMindi [facility] ([facility])[address] [place] [address] [place] [address] VIRPO2 VWVZWK93 mmHg Cjv56-86YuhNxbwwaCrescent Medical Center LancasterComment on above:Performed By: #### VBG ####[facility] ([facility])[address] [place] [address] [place] [address] VIRPOC RAVINRDA'S TESTN/ANormalMercy Health Lorain HospitalComment on above: Performed By: #### VBG ####[facility] ([facility])[address] [place] [address] [place] [address] VIRSAMPLE SITEN/[facility] Comment on above:Performed By: #### VBG ####[facility] ([facility])[address] [place] [address] [place] [address] VIRSAMPLE TYPEVENOUSNormalMercy Health Lorain HospitalComment on above:Performed By: #### VBG ####[facility] ([facility])[address] [place] [address] [place] [address] VIRSOURCE OF OXYGEN NPPVNoMcKitrick HospitalComment on above:Performed By: #### VBG ####[facility] ([facility])[address] [place] [address] [place], [place] [address] VIRBLOOD GAS, VENOUSVBG BLOOD GAS, VENOUS CancelledNormalMercy Health Lorain HospitalCB WITH AUTO DIFFERENTIALon 21-15-9571Iznqblqkjf stippling LM Ql (Bld) 1+NormalProCrescent Medical Center LancasterComment on above:Result Comment: This is an appended report. These results have been appended to a previously preliminary verified report.Performed By: #### BMP #### [facility] ([facility]) [address] [place] [address] VIRBASOPHILS ABSOLUTE COUNT (10*3/UL) BY AUTOMATED COUNT0.0 10*3/uLNormal0.0-0.2Pro[facility] Hospital Of Southern CaliforniaComhenry ford hospital on above:Result Comment: This is an appended report. These results have been appended to a previously preliminary verified report.Performed By: #### BMP #### [facility] ([facility]) [address] [place] [address] VIRBASOPHILS RELATIVE PERCENT BY AUTOMATED COUNT0.2 %Normal [facility] HospitalComhenry ford hospital on above:Result Comment: This is an appended report. These results have been appended to a previously preliminary verified report.Performed By: #### BMP #### [facility] ([facility]) [address] [place] [address] VIRCELLAVISION DIFFERENTIAL TYPEAUTOMATED DIFFERENTIALNoal [facility] HospitalComhenry ford hospital on above:Result Comment: This is an appended report. These results have been appended to a previously preliminary verified report.Performed By: #### BMP #### [facility] ([facility]) [address] [place] [address] VIRCELLAVISION ELLIPTOCYTES IN BLOOD BY LIGHT MICROSCOPY1+ NormalMercy Health Lorain HospitalComhenry ford hospital on above:Result Comment: This is an appended report. These results have been appended to a previously preliminary verified report.Performed By: #### BMP #### [facility] ([facility]) [address] [place] [address] VIRCELLAVISION POLYCHROMASIA IN BLOOD BY LIGHT MICROSCOPY1+ NormalProScenic Mountain Medical Center on above:Result Comment: This is an appended report. These results have been appended to a previously preliminary verified report.Performed By: #### BMP #### [facility] ([facility]) [address] [place] [address] VIRCELLAVISION STOMATOCYTES IN BLOOD BY LIGHT MICROSCOPY1+ Normal[facility] on above:Result Comment: This is an appended report. These results have been appended to a previously preliminary verified report.Performed By: #### BMP #### [facility] ([facility]) [address] [place] [address] VIREosinophils (Bld) [#/Vol]0.0 10*3/uLNormal0.0-0.4[facility] on above:Result Comment: This is an appended report. These results have been appended to a previously preliminary verified report. Performed By: #### BMP #### [facility] ([facility]) [address] [place] [address] VIREOSINOPHILS RELATIVE PERCENT BY AUTOMATED COUNT0.0 %Normal [facility] HospitalComhenry ford hospital on above:Result Comment: This is an appended report. These results have been appended to a previously preliminary verified report.Performed By: #### BMP #### [facility] ([facility]) [address] [place] [address] VIRErythrocyte distribution width (RBC) [Ratio]20.2 %High 11.5-15ProCrescent Medical Center LancasterComment on above:Performed By: #### BMP #### [facility] ([facility]) [address] [place] [address] VIRHematocrit (Bld) [Volume fraction]34.4 %Uea38-31VarTcjwzbMercy Health Lorain HospitalComment on above:Performed By: #### BMP #### [facility] ([facility]) [address] [place] [address] VIRHemoglobin (Bld) [Mass/Vol]9.8 g/dLLow11.7-15.5PHenry County HospitalComhenry ford hospital on above:Performed By: #### BMP #### [facility] ([facility]) [address] [place] [address] VIRLYMPHOCYTES ABSOLUTE COUNT (10*3/UL) BY AUTOMATED COUNT0.5 10*3/uLLow1.0-3.5PHenry County HospitalComhenry ford hospital on above:Result Comment: This is an appended report. These results have been appended to a previously prelimi nary verified report.Performed By: #### BMP #### [facility] ([facility]) [address] [place] [address] VIRLYMPHOCYTES RELATIVE PERCENT BY AUTOMATED COUNT3.7 %Normal [facility] HospitalComhenry ford hospital on above:Result Comment: This is an appended report. These results have been appended to a previously preliminary verified report.Performed By: #### BMP #### [facility] ([facility]) [address] [place] [address] VIRMCH (RBC) [Entitic mass]19.1 htHzt52-94LcfBabisjCrescent Medical Center LancasterComment on above:Performed By: #### BMP #### [facility] ([facility]) [address] [place] [address] VIRMCHC (RBC) [Mass/Vol]28.5 g/kKPvw36-56ZzgBtjihkCrescent Medical Center LancasterComment on above:Performed By: #### BMP #### [facility] ([facility]) [address] [place] [address] VIRMCV (RBC) [Entitic vol]67 xMIwy79-532XddJhrvujCrescent Medical Center LancasterComment on above:Performed By: #### BMP #### [facility] ([facility]) [address] [place] [address] VIRMONOCYTES ABSOLUTE COUNT (10*3/UL) BY AUTOMATED COUNT0.9 10*3/uLNormal0.0-0.9[facility] HospitalComhenry ford hospital on above:Result Comment: This is an appended report. These results have been appended to a previously preliminary verified report.Performed By: #### BMP #### [facility] ([facility]) [address] [place] [address] VIRMONOCYTES RELATIVE PERCENT BY AUTOMATED COUNT6.7 %Normal [facility] HospitalComhenry ford hospital on above:Result Comment: This is an appended report. These results have been appended to a previously preliminary verified report.Performed By: #### BMP #### [facility] ([facility]) [address] [place] [address] VIRNEUTROPHILS ABSOLUTE COUNT BY AUTOMATED COUNT12.0 10*3/uL High1.5-6.6[facility] HospitalComhenry ford hospital on above:Result Comment: This is an appended report. These results have been appended to a previously preliminary verified report.Performed By: #### BMP #### [facility] ([facility]) [address] [place] [address] VIRNEUTROPHILS RELATIVE PERCENT BY AUTOMATED COUNT89.4 %Normal [facility] HospitalComhenry ford hospital on above:Result Comment: This is an appended report. These results have been appended to a previously preliminary verified report.Performed By: #### BMP #### [facility] ([facility]) [address] [place] [address] VIRPlatelet mean volume (Bld) [Entitic vol]6.9 fLLow7-12 [facility] HospitalComment on above:Performed By: #### BMP #### [facility] ([facility]) [address] [place] [address] VIRPlatelets (Bld) [#/Vol]354 10*3/vBSmvacy285-735YoiAnbtfv [facility]ont HospitalComment on above:Performed By: #### BMP #### [facility] ([facility]) [address] [place] [address] VIRRBC COUNT5.13 X10E12/LNormal3.8-5.2PHenry County HospitalComhenry ford hospital on above:Performed By: #### BMP #### [facility] ([facility]) [address] [place] [address] VIRWBC (Bld) [#/Vol]13.5 10*3/uLHigh4-11[facility] HospitalComhenry ford hospital on above:Performed By: #### BMP #### [facility] ([facility]) [address] [place] [address] VIRCOMPREHENSIVE METABOLIC PANELon 71-00-2347Reixial [Mass/Vol] 3.7 g/dLNormal3.2-5.3PHenry County HospitalComment on above:Performed By: #### CMP ####[facility] ([place] [address] [place] [address] VIRALP [Catalytic activity/Vol]138 U/WYiir60-230BgiNnlzhpCrescent Medical Center LancasterComment on above:Performed By: #### CMP ####[facility] ([address] [place] [address] VIRALT [Catalytic activity/Vol]36 U/LHigh<=31PHenry County HospitalComment on above:Performed By: #### CMP ####[facility] ([address] [place] [address] VIRAnion gap [Moles/Vol]9 mmol/LNormal5-15ProCrescent Medical Center LancasterComment on above:Performed By: #### CMP ####[facility] ([address] [place] [address] VIRAST [Catalytic activity/Vol]38 U/LNormal<=41ProCrescent Medical Center LancasterComment on above: Performed By: #### CMP ####[facility] ([address] [place] [address] VIRBilirubin [Mass/Vol]0.3 mg/dLNormal0.3-1.2 [facility] HospitalComment on above:Performed By: #### CMP ####[facility] ([address] [place] [address] VIRCalcium [Mass/Vol]9.0 mg/dLNormal8.5-10.5PHenry County HospitalComment on above: Performed By: #### CMP ####[facility] ([place] [address] [place] [address] VIRChloride [Moles/Vol]96 mmol/AOgk69-581YajLthzzyCrescent Medical Center LancasterComment on above:Performed By: #### CMP ####[facility] ([facility])[address] [place] [address].[place] [address] VIRCO2 [Moles/Vol]36 mmol/RVawu27-44BfwSowvaw Methodist Hospital Of Southern CaliforniaComment on above:Performed By: #### CMP ####[facility] ([facility])[address] [place] [address] VIRCreatinine [Mass/Vol]1.45 mg/dLHigh0.40-1.00[facility] Comment on above:Result Comment: METHOD TRACEABLE TO IDMS STANDARDPerformed By: #### CMP ####[facility] ([address] [address] VIRGFR/1.73 sq M.predicted among non-blacks MDRD (S/P/Bld) [Vol rate/Area]41 mL/min/{1.73_m2}Low>=60ProCrescent Medical Center LancasterComment on above:Result Comment: eGFR not reported due to non-numeric value for Creatinine. Reported eGFR is based on the CKD-EPI 2021 equation that does not use a race coefficient.Performed By: #### CMP ####[facility] ([address] [address] VIRGlucose [Mass/Vol]133 mg/xTEwhk60-60VvmFcwknsCrescent Medical Center LancasterComment on above:Performed By: #### CMP ####[facility] ([facility])[address] [place] [address] VIRPotassium [Moles/Vol]4.2 mmol/LNormal3.5-5.0[facility] Comment on above:Performed By: #### CMP ####[facility] ([facility])[address] [place] [address] VIRProtein [Mass/Vol]7.8 g/dLNormal 6.0-8.0ProCrescent Medical Center LancasterComment on above:Performed By: #### CMP ####[facility] ([facility])[address], [place] [address] VIRSodium [Moles/Vol]141 mmol/QXddald102-531NzhVwbbzuMercy Health [facility]ain Hospital Comment on above:Performed By: #### CMP ####[facility] ([facility])[address] [place] [address] VIRUrea nitrogen [Mass/Vol]21 mg/dL Normal5-27ProCrescent Medical Center LancasterComment on above:Performed By: #### CMP ####[facility] ([facility], [place] [address] VIRLACTATE W/ REFLEXon 11-31-0852OHSPFJF W/REFLEX1.0 mmol/LNormal0.4-2.0 [facility] HospitalComment on above:Order Comment: Result did not trigger repeat Lactate,re-order if needed.Performed By: #### LACTS ####[facility] ([facility])[address] [place] [address] VIR PHOSPHORUSon 13-60-4156Ltuozrgku [Mass/Vol]6.1 mg/dLHigh2.4-4.9ProCrescent Medical Center LancasterComment on above:Performed By: #### BMP #### [facility] ([facility]) [address] [place] [address] VIRPROCALCITONINon 39-37-2178OJQAIBSAYMMNY6.13 ng/mLHigh<0.05 [facility] HospitalComment on above:Order Comment: <0.50 ng/mL - Low risk of severe sepsis and/or septic shock.<2.00 ng/mL - Recommend retesting within 6-24 hours.>2.00 ng/mL - High risk of sepsis and/or septic shock.Performed By: #### BMP #### [facility] ([facility]) [address] [place] [address] VIRTROP I, HIGH SENSITIVITY 1 HOURon 13-73-6953QDESCTCZ I, HIGH ZYPWFJRKOUT71 ng/LHigh<16ProCrescent Medical Center LancasterComment on above:Order Comment: Elevations of hs-Troponin may be due to causesother than myocardial ischemia.Recommend serial hs-Troponin testing be performed.For the initial evaluation and management of chestpain patients, refer to the algorithms linked below.Emergency Patient:[email or web address] [email or web address] [employer]/dv/dl.aspx?d= [email or web address]&uh=acaeaInpatient:[email or web address] / [employer]/dv/dl.aspx?d =[email or web address]&dh=[email or web address]&e=[email or web address]&uh=acaeaPerformed By: #### BMP #### [facility] ([facility]) [address] [place] [address] VIRTROPONIN I, HIGH SENSITIVITY 0 HOURon 60-71-9411ULBCFTZR I, HIGH GHQAUOCOLTB07 ng/LHigh<16ProCrescent Medical Center LancasterComment on above: Performed By: #### BMP #### [facility] ([facility]) [address] [place] [address] VIRXR CHEST 1 VWon 91-48-9831AO CHEST 1 VWXR CHEST 1 VW Single view chest History:SOB Difficulty breathing, shortness of breath Comparison: 12/03/2024 Findings: Single portable view of the chest. Right lower lung atelectasis versus pneumonia, stable. Stable cardiac mediastinal silhouette. Prior median sternotomy. Impression: No significant interval change. Finalized by Victor Hugo Kim MD on 12/04/2024 7:13 AMNormalProCrescent Medical Center LancasterB-TYPE NATRIURETIC PEPTIDEon 99-21-6514Vrbmkaelfid peptide B (Bld) [Mass/Vol]196 pg/mLHigh<=100[facility] on above:Performed By: #### BNP ####[facility] ([address] [place] [address] VIRBLOOD CULTUREon 08-77-5048Wlbttqqy identified Cx Nom (Bld)CULTURE RESULTS NO GROWTH 5 DAYSNormalProMedica Pittston HospitalComment on above:Order Comment: *SIRS Criteria: (must [...] source who are improvingPerformed By: #### BC ####[facility] ([facility])[address] [facility] [address], [place] [address] VIRBacteria identified Cx Nom (Bld)CULTURE RESULTS NO GROWTH 5 DAYSChillicothe VA Medical CenterComhenry ford hospital on above:Order Comment: *SIRS Criteria: (must display 2 without other explanation)-Temperature < 36 or >38-Pulse >90-Resp rate >20-WBC less than 4K or greater than 12KRepeat blood cultures not needed:-To document that a blood culture is a contaminant when 1 of 2 bottles is positive for a common contaminant (already listed in [facility] with the culture result)-To document clearance of gram negative bacteremia in patients with suspected urinary source who are improvingPerformed By: #### BC ####[facility] ([facility])[address] [facility] [address], [place] [address] VIRBLOOD GAS, VENOUSon 26-78-9187QQVI,EXCESS6.0 mmol/LHigh0.0-2.0ProCrescent Medical Center LancasterComment on above:Performed By: #### VBG #### [facility] ([facility]) [address] [place] [address] VIRHCO3 (Bld) [Moles/Vol]33.9 mmol/LHigh20.0-24.0[facility] HospitalComhenry ford hospital on above:Performed By: #### VBG #### [facility] ([facility]) [address] [place] [address] VIROxygen saturation in Blood50.0 %NormalProCrescent Medical Center LancasterComment on above:Performed By: #### VBG #### [facility] ([address] [place] [address] VIRPCO2 SEQZAP14.5 qkGxJnwf57.0-50.0[facility] Comment on above:Performed By: #### VBG #### [facility] ([address] [place] [address] VIRPH VENOUS7.082Acb7.320-7.420[facility] Comment on above:Performed By: #### VBG #### [facility] ([address] [place] [address] VIRPO2 EDEFDJ95 ohTdSyvlcg25-76AfbLtxkgeMercy Health [facility]ain Hospital Comment on above:Performed By: #### VBG #### [facility] ([address] [place] [address] VIRPOC RAVINDRA'S TESTN/ANormalProCrescent Medical Center LancasterComment on above:Performed By: #### VBG #### [facility] ([address] [place] [address] VIRSAMPLE SITEN/ANormalMercy Health Lorain HospitalComment on above:Performed By: #### VBG #### [facility] ([address] [place] [address] VIRSAMPLE TYPEVENOUSNormalMercy Health Lorain HospitalComment on above:Performed By: #### VBG #### [facility] ([address] [address] VIRSOURCE OF OXYGENNCNormalMercy Health Lorain HospitalComment on above:Performed By: #### VBG #### [facility] ([address] [place] [address] VIRBLOOD GAS, VENOUSVBG BLOOD GAS, VENOUS CancelledNormal [facility] WITH AUTO DIFFERENTIALon 49-39-8232MXFIKIKXX ABSOLUTE COUNT (10*3/UL) BY AUTOMATED COUNT0.1 10*3/uLNormal0.0-0.2[facility] on above:Result Comment: This is an appended report. These results have been appended to a previously preliminary verified report. Performed By: #### CBCA #### [facility] ([address] [place] [address] VIRBASOPHILS RELATIVE PERCENT BY AUTOMATED COUNT0.8 %Normal [facility] on above:Result Comment: This is an appended report. These results have been appended to a previously preliminary verified report.Performed By: #### CBCA #### [address] [place] [address] VIRCELLAVISION ANISOCYTOSIS IN BLOOD BY LIGHT MICROSCOPY2+ NormalOhio State Harding Hospital on above:Result Comment: This is an appended report. These results have been appended to a previously preliminary verified report.Performed By: #### CBCA #### [facility] ([address] [place] [address] VIRCELLAVISION DIFFERENTIAL TYPEAUTOMATED DIFFERENTIALBlanchard Valley Health System [facility] on above:Result Comment: This is an appended report. These results have been appended to a previously preliminary verified report.Performed By: #### CBCA #### [facility] ([address] [place] [address] VIRCELLAVISION MICROCYTES IN BLOOD BY LIGHT MICROSCOPY2+Normal [facility] on above:Result Comment: This is an appended report. These results have been appended to a previously preliminary verified report.Performed By: #### CBCA #### [facility] ([address] [place] [address] VIRCELLAVISION RBC MORPHOLOGYReviewedNormalMercy Health Lorain HospitalComhenry ford hospital on above:Result Comment: This is an appended report. These results have been appended to a previously preliminary verified report.Performed By: #### CBCA #### [facility] ([address] [address] VIREosinophils (Bld) [#/Vol]0.1 10*3/uLNormal0.0-0.4[facility] on above:Result Comment: This is an appended report. These results have been appended to a previously preliminary verified report. Performed By: #### CBCA #### [facility] ([address] [address] VIREOSINOPHILS RELATIVE PERCENT BY AUTOMATED COUNT1.3 %Normal [facility] on above:Result Comment: This is an appended report. These results have been appended to a previously preliminary verified report.Performed By: #### CBCA #### [facility] ([address] [address] VIRErythrocyte distribution width (RBC) [Ratio]19.7 %High 11.5-15[facility] HospitalComhenry ford hospital on above:Performed By: #### CBCA #### [facility] ([address] [address] VIRHematocrit (Bld) [Volume fraction]31.1 %Ecq52-21QxeLngsxdCrescent Medical Center LancasterComment on above:Performed By: #### CBCA #### [facility] ([address] [address] VIRHemoglobin (Bld) [Mass/Vol]9.3 g/dLLow11.7-15.5PHenry County HospitalComhenry ford hospital on above:Performed By: #### CBCA #### [facility] ([address] [address] VIRLYMPHOCYTES ABSOLUTE COUNT (10*3/UL) BY AUTOMATED COUNT1.3 10*3/uLNormal1.0-3.5PPremier Health Miami [facility] on above:Result Comment: This is an appended report. These results have been appended to a previously preliminary verified report.Performed By: #### CBCA #### [facility] ([address] [address] VIRLYMPHOCYTES RELATIVE PERCENT BY AUTOMATED COUNT11.2 %Normal [facility] HospitalComhenry ford hospital on above:Result Comment: This is an appended report. These results have been appended to a previously preliminary verified report.Performed By: #### CBCA #### [facility] ([address] [address] VIRH (RBC) [Entitic mass]19.3 dqZkm51-60OafOrtntwCrescent Medical Center LancasterComment on above:Performed By: #### CBCA #### [facility] ([address] [address] VIRMCHC (RBC) [Mass/Vol]29.7 g/rRAhb96-29UcgRhzpdoMercy Health Lorain HospitalComment on above:Performed By: #### CBCA #### [facility] ([address] [address] VIRMCV (RBC) [Entitic vol]65 rHOqg38-901MyvSajeuxCrescent Medical Center LancasterComment on above:Performed By: #### CBCA #### [facility] ([address] [address] VIRMONOCYTES ABSOLUTE COUNT (10*3/UL) BY AUTOMATED COUNT0.7 10*3/uLNormal0.0-0.9[facility] on above:Result Comment: This is an appended report. These results have been appended to a previously preliminary verified report.Performed By: #### CBCA #### [facility] ([address] [address] VIRMONOCYTES RELATIVE PERCENT BY AUTOMATED COUNT5.9 %Normal [facility] HospitalComhenry ford hospital on above:Result Comment: This is an appended report. These results have been appended to a previously preliminary verified report.Performed By: #### CBCA #### [facility] ([address] [address] VIRNEUTROPHILS ABSOLUTE COUNT BY AUTOMATED COUNT9.1 10*3/uL High1.5-6.6[facility] HospitalComhenry ford hospital on above:Result Comment: This is an appended report. These results have been appended to a previously preliminary verified report.Performed By: #### CBCA #### [facility] ([address] [address] VIRNEUTROPHILS RELATIVE PERCENT BY AUTOMATED COUNT80.8 %Normal [facility] HospitalComhenry ford hospital on above:Result Comment: This is an appended report. These results have been appended to a previously preliminary verified report.Performed By: #### CBCA #### [facility] ([address] [address] VIRPlatelet mean volume (Bld) [Entitic vol]7.3 fLNormal7-12 [facility] HospitalComhenry ford hospital on above:Performed By: #### CBCA #### [facility] ([address] [address] VIRPlatelets (Bld) [#/Vol]391 10*3/qWJmeuzg186-758AyjKgqouf [facility]rem[facility] HospitalComment on above:Performed By: #### CBCA #### [facility] ([address] [address] VIRRBC COUNT4.79 X10E12/LNormal3.8-5.2PHenry County HospitalComhenry ford hospital on above:Performed By: #### CBCA #### [facility] ([address] [address] VIRWBC (Bld) [#/Vol]11.3 10*3/uLHigh4-11[facility] HospitalComment on above:Performed By: #### CBCA #### [facility] ([place] [address] [place] [address] VIRCOMPREHENSIVE METABOLIC PANELon 58-51-9936Atthqwx [Mass/Vol]3.9 g/dLNormal3.2-5.3PHenry County HospitalComment on above: Performed By: #### CMP #### [facility] ([place] [address] [place] [place] [address] VIRALP [Catalytic activity/Vol]112 U/FVelgpq30-914PjkMnsiwhCrescent Medical Center LancasterComment on above:Performed By: #### CMP #### [place] [address] [place] [place] [address] VIRALT [Catalytic activity/Vol]24 U/LNormal<=31PHenry County HospitalComment on above:Performed By: #### CMP #### [facility] ([place] [address] [place] [address] VIRAnion gap [Moles/Vol]5 mmol/LNormal5-15ProCrescent Medical Center LancasterComment on above:Performed By: #### CMP #### [facility] ([place] [address] [place] [place] [address] VIRAST [Catalytic activity/Vol]24 U/LNormal<=41ProCrescent Medical Center LancasterComment on above:Performed By: #### CMP #### [facility] ([place] [address] [place] [address] VIRBilirubin [Mass/Vol]0.3 mg/dLNormal0.3-1.2PHenry County HospitalComment on above:Performed By: #### CMP #### [facility] ([place] [address] [place] [place] [address] VIRCalcium [Mass/Vol]8.4 mg/dLLow8.5-10.5PHenry County HospitalComment on above:Performed By: #### CMP #### [facility] ([address] [place] [address] VIRChloride [Moles/Vol]101 mmol/GQrmpto51-860JvjNyydmhCrescent Medical Center LancasterComment on above:Performed By: #### CMP #### [facility] ([address] [place] [address] VIRCO2 [Moles/Vol]34 mmol/HOtjb92-92UggSqmxusHenry County Hospital Comment on above:Performed By: #### CMP #### [facility] ([address] [address] VIRCreatinine [Mass/Vol]1.39 mg/dLHigh0.40-1.00ProCrescent Medical Center LancasterComment on above:Result Comment: METHOD TRACEABLE TO IDMS STANDARDPerformed By: #### CMP #### [facility] ([address] [address] VIRGFR/1.73 sq M.predicted among non-blacks MDRD (S/P/Bld) [Vol rate/Area]43 mL/min/{1.73_m2}Low>=60ProCrescent Medical Center LancasterComment on above:Result Comment: eGFR not reported due to non-numeric value for Creatinine. Reported eGFR is based on the CKD-EPI 2021 equation that does not use a race coefficient.Performed By: #### CMP #### [facility] ([address] [place] [address] VIRGlucose [Mass/Vol]130 mg/aPNhvo02-46PxhZpldwfCrescent Medical Center LancasterComment on above:Performed By: #### CMP #### [facility] ([address] [address] VIRPotassium [Moles/Vol]3.5 mmol/LNormal3.5-5.0ProCrescent Medical Center LancasterComment on above:Performed By: #### CMP #### [facility] ([facility]) [address] [place] [address] VIRProtein [Mass/Vol]7.7 g/dLNormal6.0-8.0ProCrescent Medical Center LancasterComment on above:Performed By: #### CMP #### [facility] ([address] [address] VIRSodium [Moles/Vol]140 mmol/PTwioks002-793XfrMbruxc [facility] HospitalComment on above:Performed By: #### CMP #### [facility] ([address] [address] VIRUrea nitrogen [Mass/Vol]16 mg/dLNormal5-27ProCrescent Medical Center LancasterComment on above:Performed By: #### CMP #### [facility] ([address] [address] VIRCT CTA CHESTon [id number] CTA CHESTCT CTA CHEST Clinical history: Hypoxia [...] by Kai Finn MD on 12/03/2024 4:15 AMNormalProMedica Pittston HospitalLACTATE W/ REFLEXon [id number] W/REFLEX0.8 mmol/LNormal0.4-2.0 [facility] HospitalComhenry ford hospital on above:Order Comment: Result did not trigger repeat Lactate, re-order if needed.Performed By: #### LACTS #### [facility] ([address] [place] [address] VIRTROP I, HIGH SENSITIVITY 1 HOURon 56-18-5903GDNVPYNX I, HIGH SENSITIVITY7 ng/LNormal<16ProCrescent Medical Center LancasterComhenry ford hospital on above: Performed By: #### TNIHS1 ####[facility] ([address] [place] [address] VIRTROPONIN I, HIGH SENSITIVITY 0 HOURon 12-03-2024 TROPONIN I, HIGH SENSITIVITY8 ng/LNormal<16ProCrescent Medical Center LancasterComment on above:Performed By: #### TNIHS0 #### [facility] ([address] [place] [address] VIRXR CHEST 1 VWon 50-05-1181DG CHEST 1 VWXR CHEST 1 VW XR [...] by Kai Finn MD on 12/03/2024 3:36 AMNormalProCrescent Medical Center LancasterBASI METABOLIC PANELon 55-29-6537Difzy gap [Moles/Vol]8 mmol/LNormal 5-15[facility] HospitalComment on above:Performed By: #### BMP #### [facility] ([facility]) [address] [place] [address] VIRCalcium [Mass/Vol]9.0 mg/dLNormal8.5-10.5PHenry County HospitalComment on above:Performed By: #### BMP #### [facility] ([facility]) [address] [place] [address] VIRChloride [Moles/Vol]103 mmol/POimzsu45-474FgzYgvyxaCrescent Medical Center LancasterComment on above:Performed By: #### BMP #### [facility] ([facility]) [address] [place] [address] VIRCO2 [Moles/Vol]29 mmol/JFyzblu07-43XqbUrtzheHenry County HospitalComment on above:Performed By: #### BMP #### [facility] ([facility]) [address] [place] [address] VIRCreatinine [Mass/Vol]1.15 mg/dLHigh0.40-1.00[facility] HospitalComment on above:Result Comment: METHOD TRACEABLE TO IDIA STANDARDPerformed By: #### BMP #### [facility] ([facility]) [address] [place] [address] VIRGFR/1.73 sq M.predicted among non-blacks MDRD (S/P/Bld) [Vol rate/Area]54 mL/min/{1.73_m2}Low>=60ProCrescent Medical Center LancasterComment on above: Result Comment: Reported eGFR is based on the CKD-EPI 2020 equation that does not use a race coefficient.Performed By: #### BMP #### [facility] ([facility]) [address] [place] [address] VIRGlucose [Mass/Vol]83 mg/dIFyqhtk68-07DcuZhzzbvCrescent Medical Center LancasterComment on above:Performed By: #### BMP #### [facility] ([facility]) [address] [place] [address] VIRPotassium [Moles/Vol]4.1 mmol/LNormal3.5-5.0ProCrescent Medical Center LancasterComment on above:Performed By: #### BMP #### [facility] ([facility]) [address] [place] [address] VIRSodium [Moles/Vol]140 mmol/WGdqpau497-744CraMpxaos [facility] HospitalComment on above:Performed By: #### BMP #### [facility] ([facility]) [address] [place] [address] VIRUrea nitrogen [Mass/Vol]15 mg/dLNormal5-27ProCrescent Medical Center LancasterComment on above:Performed By: #### BMP #### [facility] ([facility]) [address] [place] [address] VIRXR KNEE RT 3 VWSon 20-91-6232XG KNEE RT 3 VWSXR KNEE RT 3 [...] by Kai Finn MD on 11/29/2024 2:28 PMNormalProFormerly [facility] WITH AUTO DIFFERENTIALon 37-96-2218Pxxo form neutrophils/100 WBC (Bld)4 %NormalAtrium Health Navicent the Medical Center PPGComment on above:Result Comment: This is an appended report. These results have been appended to a previously preliminary verified report.Performed By: #### CBCA #### [facility] ([facility]) [address] [place] [address] VIRCELLAVISION BASOPHILS ABSOLUTE COUNT (10*3/UL) BY MANUAL COUNT0.1 10*3/uLNormal0.0-0.2PSCC[facility] PPGComment on above: Result Comment: This is an appended report. These results have been appended to a previously preliminary verified report.Performed By: #### CBCA #### [facility] ([facility]) [address] [place] [address] VIRCELLAVISION BASOPHILS RELATIVE PERCENT BY MANUAL COUNT1 % NormalSelect Medical Specialty [facility] PPGComment on above:Result Comment: This is an appended report. These results have been appended to a previously preliminary verified report.Performed By: #### CBCA #### [facility] ([facility]) [address] [place] [address] VIRCELLAVISION DIFFERENTIAL TYPECELLAVISION DIFFERENTIALNormal [facility] PPGComment on above:Result Comment: This is an appended report. These results have been appended to a previously preliminary verified report.Performed By: #### CBCA #### [facility] ([facility]) [address] [place] [address] VIRCELLAVISION EOSINOPHILS ABSOLUTE COUNT (10*3/UL) BY MANUAL COUNT0.2 10*3/uLNormal0.0-0.4[facility] PPGComment on above: Result Comment: This is an appended report. These results have been appended to a previously preliminary verified report.Performed By: #### CBCA #### [facility] ([facility]) [address] [place] [address] VIRCELLAVISION EOSINOPHILS PERCENT BY MANUAL COUNT2 %Normal [facility] PPGComment on above:Result Comment: This is an appended report. These results have been appended to a previously preliminary verified report.Performed By: #### CBCA #### [facility] ([facility]) [address] [place] [address] VIRCELLAVISION LYMPHOCYTES ABSOLUTE COUNT (10*3/UL) BY MANUAL COUNT1.9 10*3/uLNormal1.0-3.5PSCC[facility] PPGComment on above: Result Comment: This is an appended report. These results have been appended to a previously preliminary verified report.Performed By: #### CBCA #### [facility] ([facility]) [address] [place] [address] VIRCELLAVISION LYMPHOCYTES RELATIVE PERCENT BY MANUAL COUNT21 % [facility] PPGComment on above:Result Comment: This is an appended report. These results have been appended to a previously preliminary verified report.Performed By: #### CBCA #### [facility] ([facility]) [address] [place] [address] VIRCELLAVISION MONOCYTES ABSOLUTE COUNT (10*3/UL) IN BLOOD BY MANUAL COUNT0.2 10*3/uLNormal0.0-0.9[facility] PPGComment on above:Result Comment: This is an appended report. These results have been appended to a previously preliminary verified report.Performed By: #### CBCA #### [facility] ([facility]) [address] [place] [address] VIRCELLAVISION MONOCYTES RELATIVE PERCENT BY MANUAL COUNT2 % NormalSelect [facility] Ambulatory PPGComment on above:Result Comment: This is an appended report. These results have been appended to a previously preliminary verified report.Performed By: #### CBCA #### [facility] ([facility]) [address] [place] [address] VIRCELLAVISION NEUTROPHILS ABSOLUTE COUNT BY MANUAL COUNT6.8 10*3/uLHigh1.5-6.6[facility] Ambulatory PPGComment on above:Result Comment: This is an appended report. These results have been appended to a previously preliminary verified report.Performed By: #### CBCA #### [facility] ([facility]) [address] [place] [address] VIRCELLAVISION NEUTROPHILS RELATIVE PERCENT BY MANUAL COUNT70 % NormalSelect Medical Specialty [facility] Ambulatory PPGComment on above:Result Comment: This is an appended report. These results have been appended to a previously preliminary verified report.Performed By: #### CBCA #### [facility] ([facility]) [address] [place] [address] VIRCELLAVISION RBC MORPHOLOGYReviewedNormalSelect Medical Special[facility] Ambulatory PPGComment on above:Result Comment: This is an appended report. These results have been appended to a previously preliminary verified report. Performed By: #### CBCA #### [facility] ([facility]) [address] [place] [address] VIRErythrocyte distribution width (RBC) [Ratio]20.4 %High 11.5-15[facility] Ambulatory PPGComment on above:Performed By: #### CBCA #### [facility] ([facility]) [address] [place] [address] VIRHematocrit (Bld) [Volume fraction]32.9 %Sls42-74LenSinbdfSelect Medical Specialty Hospital - [facility] Ambulatory PPGComment on above:Performed By: #### CBCA #### [facility] ([facility]) [address] [place] [address] VIRHemoglobin (Bld) [Mass/Vol]10.0 g/dLLow11.7-15.5PSCC[facility] Ambulatory PPGComment on above:Performed By: #### CBCA #### [facility] ([facility]) [address] [place] [address] VIRMCH (RBC) [Entitic mass]21.2 umZzi71-34OjnLvjvsn Hospital Ambulatory PPGComment on above:Performed By: #### CBCA #### [facility] ([facility]) [address] [place] [address] VIRMCHC (RBC) [Mass/Vol]30.4 g/oLNne25-62EjqSqbgwg Hospital Ambulatory PPGComment on above:Performed By: #### CBCA #### [facility] ([facility]) [address] [place] [address] VIRMCV (RBC) [Entitic vol]70 bEWug04-948KlkMbaeim Hospital Ambulatory PPGComment on above:Performed By: #### CBCA #### [facility] ([facility]) [address] [place] [address] VIRPlatelet mean volume (Bld) [Entitic vol]8.2 fLNormal7-12 [facility] Ambulatory PPGComment on above:Performed By: #### CBCA #### [facility] ([facility]) [address] [place] [address] VIRPlatelets (Bld) [#/Vol]334 10*3/jQDtnxyj206-767ZxdGhbpfi Hospital Ambulatory PPGComment on above:Performed By: #### CBCA #### [facility] ([facility]) [address] [place] [address] VIRRBC COUNT4.73 X10E12/LNormal3.8-5.2PSCC[facility] Ambulatory PPGComment on above:Performed By: #### CBCA #### [facility] ([facility]) [address] [place] [address] VIRWBC (Bld) [#/Vol]9.1 10*3/uLNormal4-11[facility] Ambulatory PPGComment on above:Performed By: #### CBCA #### [facility] ([facility]) [address] [place] [address] VIRCBC auto differentialon 30-97-6997Fsef form neutrophils/100 WBC (Bld)4 %[facility] Rehabilitation SystemComment on above:This is an appended report. These results have been appended to a previously preliminary verified report. Basophils (Bld) [#/Vol]0.1 10*3/uL0.0 - 0.2 10*3/uLProMediChildren's Hospital of [facility] System Comment on above:This is an appended report. These results have been appended to a previously preliminary verified report.Basophils/100 WBC (Bld)1 %[facility] HospitalComment on above:This is an appended report. These results have been appended to a previously preliminary verified report.Differential cell count method Nom (Bld)CELLAVISION DIFFERENTIALOhioHealth Van Wert HospitalComhenry ford hospital on above:This is an appended report. These results have been appended to a previously preliminary verified report.Eosinophils (Bld) [#/Vol]0.2 10*3/uL0.0 - 0.4 10*3/uLOhioHealth Van Wert HospitalComment on above:This is an appended report. These results have been appended to a previously preliminary verified report. Eosinophils/100 WBC (Bld)2 %[facility] HospitalComhenry ford hospital on above:This is an appended report. These results have been appended to a previously preliminary verified report.Erythrocyte distribution width (RBC) [Ratio]20.4 %High11.5 - 15 %[facility] HospitalHematocrit (Bld) [Volume fraction]32.9 %Low35 - 47 % [facility] HospitalHemoglobin (Bld) [Mass/Vol]10 g/dLLow11.7 - 15.5 g/dL [facility] HospitalInterpretation and review of laboratory resultsAbnormal [facility] HospitalLymphocytes (Bld) [#/Vol]1.9 10*3/uL1.0 - 3.5 10*3/uL [facility] HospitalComhenry ford hospital on above:This is an appended report. These results have been appended to a previously preliminary verified report.MCH (RBC) [Entitic mass]21.2 pgLow27 - 34 [facility] HospitalMCHC (RBC) [Mass/Vol] 30.4 g/dLLow32 - 36 g/dLOhioHealth Van Wert HospitalMCV (RBC) [Entitic vol]70 fLLow80 - 100 [facility] HospitalMonocytes (Bld) [#/Vol]0.2 10*3/uL0.0 - 0.9 10*3/uLOhioHealth Van Wert HospitalComhenry ford hospital on above:This is an appended report. These results have been appended to a previously preliminary verified report. Monocytes/100 WBC (Bld)2 %[facility] HospitalComhenry ford hospital on above:This is an appended report. These results have been appended to a previously preliminary verified report.Neutrophils (Bld) [#/Vol]6.8 10*3/uLHigh1.5 - 6.6 10*3/uL [facility] SystemComment on above:This is an appended report. These results have been appended to a previously preliminary verified report. Neutrophils/100 WBC (Bld)70 %[facility] HospitalComment on above:This is an appended report. These results have been appended to a previously preliminary verified report.Platelet mean volume (Bld) [Entitic vol]8.2 fL7 - 12 [facility] HospitalPlatelets (Bld) [#/Vol]334 10*3/uLChildren's Hospital for Rehabilitation SystemRBC (Bld) [#/Vol]4.73 10*6/uLOhioHealth Van Wert HospitalRBC (Bld) [#/Vol]ReviewedOhioHealth Van Wert HospitalComment on above:This is an appended report. These results have been appended to a previously preliminary verified report.Variant lymphocytes/100 WBC (Bld)21 %[facility] HospitalComment on above:This is an appended report. These results have been appended to a previously preliminary verified report.WBC LM Ql (Sput)9.1PChestnut Hill HospitalCOMPREHENSIVE METABOLIC PANELon 69-89-6331Rfkfaew [Mass/Vol]4.4 g/dLNormal 3.2-5.3PSCC[facility] Ambulatory PPGComment on above:Performed By: #### CMP #### [facility] ([facility]) [address] [place] [address] VIRALP [Catalytic activity/Vol]100 U/EEmolbh54-903PfhSviynr Hospital Ambulatory PPGComment on above:Performed By: #### CMP #### [facility] ([facility]) [address] [place] [address] VIRALT [Catalytic activity/Vol]33 U/LHigh<=31PSCC[facility] Ambulatory PPGComment on above:Performed By: #### CMP #### [facility] ([facility]) [address] [place] [address] VIRAnion gap [Moles/Vol]7 mmol/LNormal5-15[facility] Ambulatory PPGComment on above:Performed By: #### CMP #### [facility] ([facility]) [address] [place] [address] VIRAST [Catalytic activity/Vol]22 U/LNormal<=41ProCleveland Clinic [facility] Ambulatory PPGComment on above:Performed By: #### CMP #### [facility] ([facility]) [address] [place] [address] VIRBilirubin [Mass/Vol]0.3 mg/dLNormal0.3-1.2PSCC[facility] Ambulatory PPGComment on above:Performed By: #### CMP #### [facility] ([facility]) [address] [place] [address] VIRCalcium [Mass/Vol]9.3 mg/dLNormal8.5-10.5PSCC[facility] Ambulatory PPGComment on above:Performed By: #### CMP #### [facility] ([facility]) [address] [place] [address] VIRChloride [Moles/Vol]102 mmol/MCweibj65-518JiuUgjlqo Hospital Ambulatory PPGComment on above:Performed By: #### CMP #### [facility] ([facility]) [address] [place] [address] VIRCO2 [Moles/Vol]34 mmol/AXqpn40-31SwtUyiaei Hospital Ambulatory PPGComment on above:Performed By: #### CMP #### [facility] ([facility]) [address] [place] [address] VIRCreatinine [Mass/Vol]1.27 mg/dLHigh0.40-1.00[facility] Ambulatory PPGComment on above:Result Comment: METHOD TRACEABLE TO IDMS STANDARDPerformed By: #### CMP #### [facility] ([facility]) [address] [place] [address] VIRGFR/1.73 sq M.predicted among non-blacks MDRD (S/P/Bld) [Vol rate/Area]48 mL/min/{1.73_m2}Low>=60[facility] Ambulatory PPGComment on above:Result Comment: Reported eGFR is based on the CKD-EPI 2020 equation that does not use a race coefficient.Performed By: #### CMP #### [facility] ([facility]) [address] [place] [address] VIRGlucose [Mass/Vol]114 mg/gVYsfc38-69VdiZvxadp Hospital Ambulatory PPGComment on above:Performed By: #### CMP #### [facility] ([facility]) [address] [place] [address] VIRPotassium [Moles/Vol]4.4 mmol/LNormal3.5-5.0[facility] Ambulatory PPGComment on above:Performed By: #### CMP #### [facility] ([facility]) [address] [place] [address] VIRProtein [Mass/Vol]7.6 g/dLNormal6.0-8.0[facility] Ambulatory PPGComment on above:Performed By: #### CMP #### [facility] ([facility]) [address] [place] [address] VIRSodium [Moles/Vol]143 mmol/MKxqfao890-675AovIdxqiu Hospital Ambulatory PPGComment on above:Performed By: #### CMP #### [facility] ([facility]) [address] [place] [address] VIRUrea nitrogen [Mass/Vol]19 mg/dLNormal5-27[facility] Ambulatory PPGComment on above:Performed By: #### CMP #### [facility] ([facility]) [address] [place] [address] VIRComprehensive metabolic panelon 26-41-5006Exokzrj [Mass/Vol] 4.4 g/dL3.2 - 5.3 g/dLChildren's Hospital for Rehabilitation SystemALP [Catalytic activity/Vol]100 U/L 39 - 130 U/LProMedSt. Francis Hospital SystemALT No additional P-5'-P [Catalytic activity/Vol]33 U/LHighNINF - 31 U/[facility] SystemAnion gap [Moles/Vol] 7 mmol/L5 - 15 mmol/[facility] Health SystemAST [Catalytic activity/Vol]22 U/L NINF - 41 U/[facility] SystemBilirubin [Mass/Vol]0.3 mg/dL0.3 - 1.2 mg/dL [facility] SystemCalcium [Mass/Vol]9.3 mg/dL8.5 - 10.5 mg/dLOhioHealth Van Wert HospitalChloride [Moles/Vol]102 mmol/L98 - 109 mmol/[facility] SystemCO2 [Moles/Vol]34 mmol/LHigh22 - 32 mmol/[facility] Creatinine [Mass/Vol]1.27 mg/dLHigh0.40 - 1.00 mg/dLOhioHealth Van Wert Hospital Comment on above:METHOD TRACEABLE TO IDMS STANDARDEGFR Non-Race Irpkrpsoe97MenBon Secours DePaul Medical CenterComment on above:Reported eGFR is based on the CKD-EPI 2020 equation that does not use a race coefficient. Glucose [Mass/Vol]114 mg/kVRxxl67 - 99 mg/dLOhioHealth Van Wert Hospital Interpretation and review of laboratory resultsAbnoCape Fear/Harnett Health Potassium [Moles/Vol]4.4 mmol/L3.5 - 5.0 mmol/[facility] SystemProtein [Mass/Vol]7.6 g/dL6.0 - 8.0 g/dLNovant Health Charlotte Orthopaedic Hospitalodium [Moles/Vol]143 mmol/L134 - 146 mmol/[facility] SystemUrea nitrogen [Mass/Vol]19 mg/dL5 - 27 mg/dLWilkes-Barre General HospitalHEMOGLOBIN A1Con 07-43-6018Oykwynj [Mass/Vol]134 mg/dLBrea Community Hospital Ambulatory PPG Comment on above:Performed By: #### HA1C #### [facility] ([facility]) [address] [place] [address] WDUHbE9j (Bld) [Mass fraction]6.3 %High4.4-5.6[facility] Ambulatory PPGComment on above:Result Comment: ADA Guidelines Result HgbA1c Normal : less than 5.7 % Prediabetes : 5.7 % to 6.4 % Diabetes : > 6.4 % Use with caution in patients with abnormal hemoglobin variants as the half-life of red blood cells and in vivo glycation rates are affected.Performed By: #### HA1C #### [facility] ([facility]) [address] [place] [address] VIRCBC AND AUTO DIFFon 45-44-5271YQNHECRV BASOPHIL0.1 X10E9/L Normal0.0-0.2Pro[facility] Wood County HospitalComment on above:Performed By: #### KAIDEN 2131-12, BMP, CBCA #### [facility] ([id number]) [address] [address] [place], [place] [address]WROZMXST NEUTROPHIL7.1 X10E9/LHigh1.5-6.6ProOhiohealth Arthur G.H. Bing, Md, Cancer CenterComment on above:Performed By: #### KAIDEN 2131-12, BMP, CBCA #### [facility] ([id number]) [address] [address] [place], [place] [address]Rcleomafx/100 WBC (Bld)0.6 %NormalMain Campus Medical Center Comment on above:Performed By: #### KAIDEN 2131-12, BMP, CBCA #### [facility] ([id number]) [address] [place], [place] [address]Bsldkfdbrnb (Bld) [#/Vol]0.1 10*3/uLNormal0.0-0.4ProOhiohealth Arthur G.H. Bing, Md, Cancer CenterComment on above:Performed By: #### KAIDEN 2131-12, BMP, CBCA #### [facility] ([id number]) [address] [address] [place], [place] [address]Rzrjtckdtko/100 WBC (Bld)1.0 %NormalMain Campus Medical Center Comment on above:Performed By: #### KAIDEN, 2131-12, BMP, CBCA #### [facility] ([id number]) [address] [place], [place] [address]Hwuvhpinpzl distribution width (RBC) [Ratio]20.7 %High11.5-15.0 [facility]ica [facility]phalia HospitalComment on above:Performed By: #### KAIDEN, 2131-12, BMP, CBCA #### [facility] ([id number]) [address] [place], [place] [address]Tdcjhmeqlu (Bld) [Volume fraction]37.2 %Yqfpix56-75VrtGkbgaqOhiohealth Arthur G.H. Bing, Md, Cancer CenterComment on above:Performed By: #### KAIDEN, 2131-12, BMP, CBCA #### [facility] ([id number]) [address] [place], [place] [address]Ejaxoowjlb (Bld) [Mass/Vol]11.7 g/yZMjjfxr54.7-15.5ProMedOur Lady of Mercy Hospital HospitalComment on above:Performed By: #### KAIDEN 2131-12, BMP, CBCA #### [facility] ([id number]) [address] [place], [place] [address]Casphdksyxx (Bld) [#/Vol]1.6 10*3/uLNormal1.0-3.5ProMedOur Lady of Mercy Hospital HospitalComment on above:Performed By: #### KAIDEN, 2131-12, BMP, CBCA #### [facility] ([id number]) [address] [place], [place] [address]Ijcvlhojdqs/100 WBC (Bld)17.6 %NormalMain Campus Medical Center Comment on above:Performed By: #### THYDasha, 2131-12, BMP, CBCA #### [facility] ([id number]) [address] [place], [place] [address]FYP (RBC) [Entitic mass]23.0 vbTme37-33SsoUuiahgMain Campus Medical Center Comment on above:Performed By: #### THYDasha, 2131-12, BMP, CBCA #### [facility] ([id number]) [address] [place], [place] [address]YKDY (RBC) [Mass/Vol]31.4 g/wRWsw70-64SuiFdnkqfMain Campus Medical Center Comment on above:Performed By: #### THYDasha, 2131-12, BMP, CBCA #### [facility] ([id number]) [address] [place], [place] [address]QLX (RBC) [Entitic vol]73 nPVtm76-083PqyXbuayhMain Campus Medical Center Comment on above:Performed By: #### KAIDEN, 2131-12, BMP, CBCA #### [facility] ([id number]) [address] [place], [place] [address]Cuhbrbcko (Bld) [#/Vol]0.4 10*3/uLNormal0-0.9Main Campus Medical CenterComment on above:Performed By: #### THYDasha, 2131-12, BMP, CBCA #### [facility] ([id number]) [address] [place], [place] [address]Rgprsntgn/100 WBC (Bld)4.2 %[facility] Comment on above:Performed By: #### THYR, 2131-12, BMP, CBCA #### [facility] ([id number]) [address] [place], [place] [address]Cowsbngwhpb/100 WBC (Bld)76.6 %[facility] Comment on above:Performed By: #### THYR, 2131-12, BMP, CBCA #### [facility] ([id number]) [address] [place], [place] [address]Keouirfc mean volume (Bld) [Entitic vol]8.2 fLNormal7-12 [facility] HospitalComment on above:Performed By: #### KAIDEN 2131-12, BMP, CBCA #### [facility] ([id number]) [address] [place], [place] [address]Rhgqldwhs (Bld) [#/Vol]396 10*3/aIYeosgb461-230EzmQpjzum [facility]phal[facility] HospitalComment on above:Performed By: #### KAIDEN 2131-12, BMP, CBCA #### [facility] ([id number]) [address] [place], [place] [address]JNY COUNT5.09 X10E12/LNormal3.80-5.20ProMiami Valley Hospitalca [facility] Comment on above:Performed By: #### KAIDEN 2131-12, KEKE, CBCA #### [facility] ([id number]) [address] [place], [place] [address]BUR (Bld) [#/Vol]9.3 10*3/uLNormal4.0-11.0ProMiami Valley Hospitalca [facility]phal[facility] HospitalComment on above:Performed By: #### KAIDEN 2131-12, BMP, CBCA #### [facility] ([id number]) [address] [place], [place] [address]ITLLYKEPABKUQ METABOLIC PANELon 25-67-5822Waovshp [Mass/Vol]4.1 g/dLNormal3.2-5.3ProMedica [facility]phal[facility] HospitalComment on above:Performed By: #### KAIDEN 2131-12, BMP, CBCA #### [facility] ([id number]) [address] [place], [place] [address]VGW [Catalytic activity/Vol]106 U/GDihftm54-721CvqCawbfd Miller HospitalComment on above:Performed By: #### KAIDEN 2131-12, BMP, CBCA #### [facility] ([id number]) [address] [place], [place] [address]PLC [Catalytic activity/Vol]30 U/LNormal0-31ProMedica Miller HospitalComment on above:Performed By: #### KAIDEN 2131-12, BMP, CBCA #### [facility] ([id number]) [address] [place], [place] [address]Mlnzo gap [Moles/Vol]10 mmol/LNormal5-15[facility] Miller HospitalComment on above:Performed By: #### KAIDEN 2131-12, BMP, CBCA #### [facility] ([id number]) [address] [place], [place] [address]ZFN [Catalytic activity/Vol]30 U/LNormal0-41ProMedica Miller HospitalComment on above:Performed By: #### KAIDEN 2131-12, BMP, CBCA #### [facility] ([id number]) [address] [place], [place] [address]Zqlqatnum [Mass/Vol]0.3 mg/dLNormal0.3-1.2Pro[facility]ica Miller HospitalComment on above:Performed By: #### KAIDEN 2131-12, BMP, CBCA #### [facility] ([id number]) [address] [place], [place] [address]Rrrjrbq [Mass/Vol]9.6 mg/dLNormal8.5-10.5ProMedica Miller HospitalComment on above:Performed By: #### KAIDEN 2131-12, BMP, CBCA #### [facility] ([id number]) [address] [place], [place] [address]Zzkcaqaf [Moles/Vol]105 mmol/MHlzeqf38-872EuqVcvopq Miller HospitalComment on above:Performed By: #### KAIDEN 2131-12, BMP, CBCA #### [facility] ([id number]) [address] [place], [place] [address]MD7 [Moles/Vol]25 mmol/EQjvwba94-80RkhPsbundCorey Hospital Comment on above:Performed By: #### KAIDEN 2131-12, ANNA DAVIES #### [facility] ([id number]) [address] [place], [place] [address]Qbzchmuiob [Mass/Vol]1.14 mg/dLHigh0.40-1.00ProOhiohealth Arthur G.H. Bing, Md, Cancer CenterComment on above:Result Comment: METHOD TRACEABLE TO IDMS STANDARD Performed By: #### KAIDEN 2131-12, ANNA DAVIES #### [facility] ([id number]) [address] [place], [place] [address]HOW/1.73 sq M.predicted among non-blacks MDRD (S/P/Bld) [Vol rate/Area]54 mL/min/{1.73_m2}Low>59ProOhiohealth Arthur G.H. Bing, Md, Cancer CenterComment on above: Result Comment: Reported eGFR is based on the CKD-EPI 2020 equation that does not use a race coefficient.Performed By: #### KAIDEN 2131-12, ANNA DAVIES #### [facility] ([id number]) [address] [address] [place], [place] [address]Tgomuca [Mass/Vol]144 mg/xQRkwy96-86FgaIajruwMain Campus Medical Center Comment on above:Performed By: #### KAIDEN 2131-12, ANNA DAVIES #### [facility] ([id number]) [address] [place], [place] [address]Ahcxogjwm [Moles/Vol]3.9 mmol/LNormal3.5-5.0ProOhiohealth Arthur G.H. Bing, Md, Cancer CenterComment on above:Performed By: #### KAIDEN 2131-12, KEKE, CBCMindi #### [facility] ([id number]) [address] [place], [place] [address]Xguujzx [Mass/Vol]7.5 g/dLNormal6.0-8.0[facility] Comment on above:Performed By: #### KAIDEN 2131-12KEKE CBCMindi #### [facility] ([id number]) [address] [facility] [address] [place], [place] [address]Emyeyp [Moles/Vol]140 mmol/LDghwjm755-902JwfXtfxtr [facility] HospitalComment on above:Performed By: #### KAIDEN 2131-12, KEKE, CBCA #### [facility] ([id number]) [address] [facility] [address] [place], [place] [address]Rwor nitrogen [Mass/Vol]11 mg/dLNormal5-27ProOhiohealth Arthur G.H. Bing, Md, Cancer CenterComment on above:Performed By: #### KAIDEN 2131-12, KEKE, CBCA #### [facility] ([id number]) [address] [facility] [address] [place], [place] [address]OAW A1C (GLYCO-HGB)on [id number] [Mass/Vol]140 mg/dL NormalProOhiohealth Arthur G.H. Bing, Md, Cancer CenterComment on above:Performed By: #### KAIDEN 2131-12, KEKE, CBCA #### [facility] ([id number]) [address], [facility] [address] [place], [place] [address]JkF1v (Bld) [Mass fraction]6.5 %High4.4-5.6ProOhiohealth Arthur G.H. Bing, Md, Cancer CenterComment on above:Result Comment: NOTE ADA Guidelines Result HgbA1c Normal : less than 5.7 % Prediabetes : 5.7 % to 6.4 % Diabetes : > 6.4 % Use with caution in patients with abnormal hemoglobin variants as the half-life of red blood cells and in vivo glycation rates are affected.Performed By: #### KAIDEN 2131-12, KEKE, CBCA #### [facility] ([id number]) [address], [address] [place] [address]Tqrsz 1996 panelon [id number] [Mass/Vol]188 mg/dL Igzvxs677-474XmaIlzsmb [place] HospitalComment on above:Performed By: ###Fabi RICHEY 2131-12, BMP, CBCA #### [facility] ([id number]) [address], [address] [place], [place] [address]Idbcuqpnpbw in HDL [Mass/Vol]33 mg/dLLow>39ProMedica Westphalia HospitalComment on above:Result Comment: HDL <40 mg/dL - High Risk HDL > or = 40mg/dL- Desirable HDL >60 mg/dL - Negative Risk Performed By: ###Fabi RICHEY, 2131-12, BMP, CBCA #### [facility] ([id number]) [address], [address] [place], [place] [address]Qiyhdrsvlyz in LDL [Mass/Vol]118 mg/dLNormal<130Pro[facility] HospitalComment on above:Result Comment: LDL <100 mg/dL - Desirable LDL >160 mg/dL - High Risk Performed By: #### KAIDEN, 2131-12, BMP, CBCA #### [facility] ([id number]) [address], [address] [place], [place] [address]Xpmqucpymvp in VLDL [Mass/Vol]37 mg/dLHigh0-30Pro[facility] HospitalComment on above:Performed By: ###Fabi RICHEY, 2131-12, BMP, CBCA #### [facility] ([id number]) [address], [address] [place], [place] [address]BFSTEWQUIJW:HDL5.7High1.0-5.0ProMiami Valley Hospitalca Westphalia HospitalComment on above:Performed By: #### KAIDEN 2131-12, BMP, CBCA #### [facility] ([id number]) [address], [address] [place], [place] [address]Hbklimhvucgx [Mass/Vol]185 mg/gEVwnp32-523VgmMbvxfb Westphalia HospitalComment on above:Performed By: #### KAIDEN, 2131-12, BMP, CBCA #### [facility] ([id number]) [address], [address] [place], [place] [address]SXMQXMG B12on 49-95-4263Sbfthpcjh (Vitamin B12) [Mass/Vol]1244 pg/hSUxak231-352ZgjSocqqd [place] HospitalComment on above:Performed By: #### KAIDEN 2131-12, BMP, CBCA #### [facility] ([id number]) [address], [address] [place], [place] [address]JRN AND AUTO DIFFon 32-40-5474GQEJTYXF BASOPHIL0.1 X10E9/LNormal 0.0-0.2ProMedOur Lady of Mercy Hospital HospitalComment on above:Performed By: #### XENIA, 257-8, HAMagaly, 2088-04, CBCA #### [facility] ([id number]) [address], [address] [place], [place] [address]HFDCWJIR NEUTROPHIL8.1 X10E9/LHigh1.5-6.6ProMiami Valley Hospitalca [facility]phal[facility] HospitalComment on above:Performed By: #### XENIA, 257-8, HA1C, 2088-04, CBCA #### [facility] ([id number]) [address], [address] [place], [place] [address]Xqtopfoob/100 WBC (Bld)0.7 %NormalProGreen Cross Hospital Hospital Comment on above:Performed By: #### XENIA, 2571-8, HA1C, 2088-04, CBCA #### [facility] ([id number]) [address], [address] [place], [place] [address]Gpscpmtofun (Bld) [#/Vol]0.2 10*3/uLNormal0.0-0.4ProMedica Westphalia HospitalComment on above:Performed By: #### XENIA, 2570-11, , 2088-04, CBCA #### [facility] ([id number]) [address], [address] [place], [place] [address]Syhaqevkbjf/100 WBC (Bld)1.4 %NormalProMiami Valley Hospitalca [facility] Comment on above:Performed By: #### XENIA, 2570-11, , 2088-04, CBCA #### [facility] ([id number]) [address], [address] [place], [place] [address]Ooptfzujbkb distribution width (RBC) [Ratio]19.2 %High11.5-15.0 Pro[facility] Westphalia HospitalComment on above:Performed By: #### XENIA, 2570-11, , 2088-04, CBCA #### [facility] ([id number]) [address], [address] [place], [place] [address]Alpqeecreo (Bld) [Volume fraction]31.0 %Tww37-22UsuAcctly Westphalia HospitalComment on above:Performed By: #### XENIA, 2570-11, , 2088-04, CBCA #### [facility] ([id number]) [address], [address] [place], [place] [address]Vuvoocyrxk (Bld) [Mass/Vol]9.2 g/dLLow11.7-15.5ProMedica Westphalia HospitalComment on above:Performed By: #### XENIA, 2570-11, , 2088-04, CBCA #### [facility] ([id number]) [address], [address] [place], [place] [address]Dzdnkjjglrg (Bld) [#/Vol]2.2 10*3/uLNormal1.0-3.5PCorey HospitalComment on above:Performed By: #### XENIA, 8, HA1C, 2088-04, CBCA #### [facility] ([id number]) [address], [facility] [address] [place], [place] [address]Wgztrkrioxm/100 WBC (Bld)19.8 %NormalMain Campus Medical Center Comment on above:Performed By: #### XENIA, 8, HAMagaly, 2088-04, CBCA #### [facility] ([id number]) [address], [address] [address]AVE (RBC) [Entitic mass]21.8 ofWic20-19XipLdalvxMain Campus Medical Center Comment on above:Performed By: #### XENIA, 8, HA1C, 2088-04, CBCA #### [facility] ([id number]) [address], [address] [address]QZDE (RBC) [Mass/Vol]29.8 g/lGRbq31-23AkqGlogatMain Campus Medical Center Comment on above:Performed By: #### XENIA, 8, HA1C, 2088-04, CBCA #### [facility] ([id number]) [address] [address]FLM (RBC) [Entitic vol]73 nFRiw48-904OxpOgagqoMain Campus Medical Center Comment on above:Performed By: #### XENIA, 8, HA1C, 2088-04, CBCA #### [facility] ([id number]) [address], [address] [address]Xhivmpsvj (Bld) [#/Vol]0.4 10*3/uLNormal0-0.9Main Campus Medical CenterComment on above:Performed By: #### XENIA, 257-8, HA1C, 2088-04, CBCA #### [facility] ([id number]) [address], [address] [place], [place] [address]Vzcafigxf/100 WBC (Bld)4.0 %NormalMain Campus Medical Center Comment on above:Performed By: #### CMP, 2570-8, HA1C, 2088-04, CBCA #### [facility] ([id number]) [address], [address] [place], [place] [address]Ltjcecveyeb/100 WBC (Bld)74.1 %[facility] Comment on above:Performed By: #### CMP, 2570-8, HA, 2088-04, CBCA #### [facility] ([id number]) [address], [address] [place], [place] [address]Recqnpnb mean volume (Bld) [Entitic vol]8.0 fLNormal7-12 [facility] Medical CenterComment on above:Performed By: #### CMP, 8, HA1C, 2088-04, CBCA #### [facility] ([id number]) [address], [address] [place], [place] [address]Vxmshzzjh (Bld) [#/Vol]412 10*3/gRCqtsly974-953SlhDlfbmf [place] HospitalComment on above:Performed By: #### CMP, 2570-8, HA, 2088-04, CBCA #### [facility] ([id number]) [address], [address] [place], [place] [address]WTP COUNT4.24 X10E12/LNormal3.80-5.20[facility] Comment on above:Performed By: #### CMP, 2570-8, HA1C, 2088-04, CBCA #### [facility] ([id number]) [address], [address] [place], [place] [address]BRB (Bld) [#/Vol]11.0 10*3/uLNormal4.0-11.0[facility] Medical CenterComment on above:Performed By: #### CMP, 2571-8, HA1C, 2089-1, CBCA #### [facility] ([id number]) [address] [place], [place] [address]NMN auto differentialon 61-20-5112Mwezjhcqf (Bld) [#/Vol]0.1 10*3/uLChildren's Hospital for Rehabilitation SystemBasophils/100 WBC (Bld)0.7 %[facility] HospitalEosinophils (Bld) [#/Vol]0.2 10*3/uLOhioHealth Van Wert HospitalEosinophils/100 WBC (Bld)1.4 %[facility] HospitalErythrocyte distribution width (RBC) [Ratio]19.2 %High11.5 - 15.0 %[facility] HospitalHematocrit (Bld) [Volume fraction]31 %Low35 - 47 %[facility] HospitalHemoglobin (Bld) [Mass/Vol]9.2 g/dLLow11.7 - 15.5 g/dLOhioHealth Van Wert HospitalInterpretation and review of laboratory resultsAbnormalOhioHealth Van Wert HospitalLymphocytes (Bld) [#/Vol]2.2 10*3/uLOhioHealth Van Wert HospitalLymphocytes/100 WBC (Bld)19.8 %[facility] HospitalMCH (RBC) [Entitic mass]21.8 pgLow27 - 34 pgPSouthview Medical CenterMCHC (RBC) [Mass/Vol]29.8 g/dLLow32 - 36 g/dLOhioHealth Van Wert HospitalMCV (RBC) [Entitic vol]73 fLLow80 - 100 [facility] HospitalMonocytes (Bld) [#/Vol] 0.4 10*3/uLOhioHealth Van Wert HospitalMonocytes/100 WBC (Bld)4 %[facility] HospitalNeutrophils (Bld) [#/Vol]8.1 10*3/uLProvidence Mount Carmel [facility] System Neutrophils/100 WBC (Bld)74.1 %[facility] Health SystemPlatelet mean volume (Bld) [Entitic vol]8 fL7 - 12 fLPMercy Health Fairfield Hospital SystemPlatelets (Bld) [#/Vol]412 10*3/uLChildren's Hospital for Rehabilitation SystemRBC (Bld) [#/Vol]4.24 10*6/[facility] SystemWBC corrected for nucl RBC Auto (Bld) [#/Vol]11[facility] ProMBlanchard Valley Health System Blanchard Valley HospitalCOMPREHENSIVE METABOLIC PANELon 63-58-8357Xtfrbgl [Mass/Vol]4.0 g/dLNormal3.2-5.3PRegional Medical Center HospitalComment on above: Performed By: #### KAIDEN, 2131-12, BMP, CBCA #### [facility] ([id number]) [address], [address] [place], [place] [address]NFG [Catalytic activity/Vol]94 U/HBqxmkm60-194NixRtegiz [place] HospitalComment on above:Performed By: #### KAIDEN, 2131-12, BMP, CBCA #### [facility] ([id number]) [address], [address] [place], [place] [address]EFX [Catalytic activity/Vol]13 U/LNormal0-31PRegional Medical Center HospitalComment on above:Performed By: #### THYR, 2131-12, BMP, CBCA #### [facility] ([id number]) [address], [address] [place], [place] [address]Xcpwo gap [Moles/Vol]6 mmol/LNormal5-15ProGreen [facility] Hospital Comment on above:Performed By: #### THYR, 2131-12, BMP, CBCA #### [facility] ([id number]) [address], [address] [place], [place] [address]SXH [Catalytic activity/Vol]12 U/LNormal0-41Pro[facility] HospitalComment on above:Performed By: #### THYR, 2131-12, BMP, CBCA #### [facility] ([id number]) [address], [address] [place], [place] [address]Bgdiingfx [Mass/Vol]0.3 mg/dLNormal0.3-1.2PRegional Medical Center HospitalComment on above:Performed By: #### KAIDEN 2131-12, BMP, CBCA #### [facility] ([id number]) [address], [address] [place], [place] [address]Khypscg [Mass/Vol]9.0 mg/dLNormal8.5-10.5PRegional Medical Center HospitalComment on above:Performed By: #### KAIDEN 2131-12, KEKE, CBCA #### [facility] ([id number]) [address], [address] [place], [place] [address]Clrgveua [Moles/Vol]100 mmol/ZDjrwto13-500QfwNdgoem [place] HospitalComment on above:Performed By: #### KAIDEN 2131-12, KEKE, CBCA #### [facility] ([id number]) [address], [address] [place], [place] [address]MZ7 [Moles/Vol]32 mmol/BUnfkhy55-20HgdRbabwp [facility] Comment on above:Performed By: #### KAIDEN 2131-12, KEKE, CBCA #### [facility] ([id number]) [address], [address] [place], [place] [address]Bxvwhhfiyz [Mass/Vol]1.26 mg/dLHigh0.40-1.00Pro[facility] HospitalComment on above:Result Comment: METHOD TRACEABLE TO IDMS STANDARD Performed By: #### KAIDEN 2131-12, KEKE, CBCA #### [facility] ([id number]) [address], [address] [place], [place] [address]LHJ/1.73 sq M.predicted among non-blacks MDRD (S/P/Bld) [Vol rate/Area]49 mL/min/{1.73_m2}Low>59ProMi[facility] Valley Hospitalca Miller HospitalComment on above: Result Comment: Reported eGFR is based on the CKD-EPI 2020 equation that does not use a race coefficient.Performed By: #### KAIDEN 2131-12KEKE CBCMindi #### [facility] ([id number]) [address], [address] [place], [place] [address]Boffzkj [Mass/Vol]120 mg/qVDdhv86-13CphDxnhqxOhiohealth Arthur [facility] Comment on above:Performed By: #### KAIDEN 2131-12, KEKE, CBCA #### [facility] ([id number]) [address], [address] [place], [place] [address]Rtobuwfeg [Moles/Vol]3.6 mmol/LNormal3.5-5.0ProOhiohealth Arthur G.H. Bing, Md, Cancer CenterComment on above:Performed By: #### KAIDEN 2131-12, KEKE, CBCA #### [facility] ([id number]) [address], [address] [place], [place] [address]Zalalnl [Mass/Vol]7.3 g/dLNormal6.0-8.0[facility] Comment on above:Performed By: #### KAIDEN 2131-12, KEKE, CBCA #### [facility] ([id number]) [address], [address] [place], [place] [address]Esghjy [Moles/Vol]138 mmol/BDggcgw989-913XplQttdfd [place] HospitalComment on above:Performed By: #### KAIDEN 2131-12, BMP, CBCA #### [facility] ([id number]) [address], [address] [place], [place] [address]Kqtq nitrogen [Mass/Vol]21 mg/dLNormal5-27ProOhiohealth Arthur G.H. Bing, Md, Cancer CenterComment on above:Performed By: #### KAIDEN 2131-12, BMP, CBCA #### [facility] ([id number]) [address], [address] [place], [place] [address]Yspmvcfdklucf metabolic panelon 77-92-0804Osalfzu [Mass/Vol]4 g/dL3.2 - 5.3 g/dLChildren's Hospital for Rehabilitation SystemALP [Catalytic activity/Vol]94 U/L39 - 130 U/[facility] SystemALT No additional P-5'-P [Catalytic activity/Vol] 13 U/L0 - 31 U/[facility] SystemAnion gap [Moles/Vol]6 mmol/L5 - 15 mmol/[facility] Health SystemAST [Catalytic activity/Vol]12 U/L0 - 41 U/L [facility] HospitalBilirubin [Mass/Vol]0.3 mg/dL0.3 - 1.2 mg/dLOhioHealth Van Wert HospitalCalcium [Mass/Vol]9 mg/dL8.5 - 10.5 mg/dLOhioHealth Van Wert Hospital Chloride [Moles/Vol]100 mmol/L98 - 109 mmol/[facility] SystemCO2 [Moles/Vol]32 mmol/L22 - 32 mmol/[facility] HospitalCreatinine [Mass/Vol] 1.26 mg/dLHigh0.40 - 1.00 mg/dLOhioHealth Van Wert HospitalComment on above:METHOD TRACEABLE TO [facility] STANDARDeGFR (CKD-EPI)non-race qhdprrhxk56Unp[address] [place], [place] [address]Comment on above: Reported eGFR is based on the CKD-EPI 2020 equation that does not use a race coefficient. Glucose [Mass/Vol]120 mg/zUZtzh30 - 99 mg/dLOhioHealth Van Wert Hospital Interpretation and review of laboratory resultsAbnormalOhioHealth Van Wert Hospital Potassium [Moles/Vol]3.6 mmol/L3.5 - 5.0 mmol/[facility] SystemProtein [Mass/Vol]7.3 g/dL6.0 - 8.0 g/dLNovant Health Charlotte Orthopaedic Hospitalodium [Moles/Vol]138 mmol/L134 - 146 mmol/[facility] HospitalUrea nitrogen [Mass/Vol]21 mg/dL5 - 27 mg/dLWilkes-Barre General HospitalDIRECT LDLon 03-07-2024 Cholesterol in LDL [Mass/Vol]161 mg/dLHigh<130[facility] Medical CenterComment on above:Result Comment: LDL <100 mg/dL - Desirable LDL 130-159 mg/dL - Borderline High Risk LDL >160 mg/dL - High Risk Performed By: #### KAIDEN, 2131-12, ANNA DAVIES #### [facility] ([id number]) [address], [address] [place], [place] [address]ZIL A1C (GLYCO-HGB)on 20-71-9242Alhcxxp [Mass/Vol]123 mg/dL NormalProOhiohealth Arthur G.H. Bing, Md, Cancer CenterComment on above:Performed By: #### KAIDEN 2131-12, ANNA DAVIES #### [facility] ([id number]) [address] [address] [place], [place] [address]ZnP8k (Bld) [Mass fraction]5.9 %High4.4-5.6[facility] Campus Medical CenterComment on above:Result Comment: NOTE ADA Guidelines Result HgbA1c Normal : less than 5.7 % Prediabetes : 5.7 % to 6.4 % Diabetes : > 6.4 % Use with caution in patients with abnormal hemoglobin variants as the half-life of red blood cells and in vivo glycation rates are affected.Performed By: #### KAIDEN, 2131-12, KEKE, ANNA #### [facility] ([id number]) [address], [address] [place], [place] [address]Ucliaaeyuk A1con 76-30-4529Akyolcp glucose Estimated from glycated hemoglobin (Bld) [Mass/Vol]123 mg/dLOhioHealth Van Wert HospitalHbA1c (Bld) [Mass fraction]5.9 %High4.4 - 5.6 %[facility] for Rehabilitation SystemComment on above:NOTE ADA Guidelines Result HgbA1c Normal : less than 5.7 % Prediabetes : 5.7 % to 6.4 % Diabetes : > 6.4 % Use with caution in patients with abnormal hemoglobin variants as the half-life of red blood cells and in vivo glycation rates are affected. Interpretation and review of laboratory resultsAbnoCumberland Memorial HospitalMICROALBUMIN - ALBUMIN:CREATININE URINE RATIOon 02-65-9962VZI/CREAT RATIONOT CALCULATEDNormal0.0-30.0[facility] Comment on above:Result Comment: Result for Albumin/Creatinine Ratio cannot be reliably calculated because urine albumin and or urine creatinine is below the detection limit of the assay.Performed By: #### KAIDEN, 2131-12, BMP, CBCA #### [facility] ([id number]) [address], [address] [address]Vjcvpyu DL <= 20 mg/L (U) [Mass/Vol]mg/dLNormal0.0-1.9[facility] Medical CenterComment on above:Performed By: #### THYDasha, 2131-12, BMP, CBCA #### [facility] ([id number]) [address], [address] [place], [place] [address]UYJJY CREAT46.22 mg/dLNoAdena Fayette Medical CenterComment on above:Performed By: #### THYDasha, 2131-12, BMP, CBCA #### [facility] ([id number]) [address], [address] [address]Cakixhjsyldz - Albumin: Creatinine Urine Ratioon 03-07-2024 Albumin DL <= 20 mg/L (U) [Mass/Vol]mg/dL0.0 - 1.9 mg/dLOhioHealth Van Wert Hospital Albumin/Creatinine DL <= 1.0 mg/L (U) [Ratio]NOT CALCULATEDOhioHealth Van Wert HospitalComment on above: Result for Albumin/Creatinine Ratio cannot be reliably calculated because urine albumin and or urine creatinine is below the detection limit of the assay. Creatinine (U) [Mass/Vol]46.22 mg/dLWilkes-Barre General HospitalTRIGLYCERIDEon 44-54-7342Lmynwmpdpbrh [Mass/Vol]113 mg/sGQefqhj08-076 [facility] HospitalComment on above:Performed By: #### THYR, 2131-12, ANAN DAVIES #### [facility] ([id number]) [address], [address] [place], [place] [address]Th Panel Informationon 30-87-7627NdllfEusebia Huertas DO 01/26/2024 3:45 PM L Inj/Asp: L subacromial bursa on 01/26/2024 1:50 PM Indications: pain Details: 21 G needle, posterior approach Medications: 40 mg methylPREDNISolone acetate 40 MG/ML Outcome: tolerated well, no immediate complications Procedure, treatment alternatives, risks and benefits explained, specific risks discussed. Consent was given by the patient. [facility] HospitalXR Shoulder - left 2 Viewson 88-67-2628Havkrhr Result: January 26, 2024 x-rays AP axillary and Y scapula of the left shoulder demonstrate a type 2 acromion. The glenohumeral joint and acromioclavicular joints are intact. There are no fractures identified. The humeral head is centered in the glenoid. Impression: Type 2 acromion Cipriano Huertas D.O.[facility] HospitalRadiology Study observation (narrative)[facility] SystemBASI METABOLIC PANLon 23-05-7145Ddqic gap [Moles/Vol] 9 mmol/LNormal5-15[facility] HospitalComment on above:Performed By: #### BMP #### [facility] ([id number]) [address], [address] [place], [place] [address]Lvclffp [Mass/Vol]9.1 mg/dLNormal8.5-10.5Pro[facility]ica Westphalia HospitalComment on above:Performed By: #### BMP #### [facility] ([id number]) [address], [address] [place], [place] [address]Lbavgyus [Moles/Vol]101 mmol/FLrwlww53-250XodUhixsb [facility] HospitalComment on above:Performed By: #### BMP #### [facility] ([id number]) [address], [address] [place], [place] [address]QC3 [Moles/Vol]31 mmol/JQdbuwa91-28EptMjurgh [facility] Comment on above:Performed By: #### BMP #### [facility] ([id number]) [address], [address] [place], [place] [address]Yifgsmnfin [Mass/Vol]1.36 mg/dLHigh0.40-1.00ProOhiohealth Arthur G.H. Bing, Md, Cancer CenterComment on above:Result Comment: METHOD TRACEABLE TO IDMS STANDARD Performed By: #### BMP #### [facility] ([id number]) [address], [address] [place], [place] [address]IVY/1.73 sq M.predicted among non-blacks MDRD (S/P/Bld) [Vol rate/Area]44 mL/min/{1.73_m2}Low>59ProOhiohealth Arthur G.H. Bing, Md, Cancer CenterComment on above: Result Comment: Reported eGFR is based on the CKD-EPI 1 equation that does not use a race coefficient.Performed By: #### BMP #### [facility] ([id number]) [address], [address] [place], [place] [address]Lkieevm [Mass/Vol]134 mg/xYOatx46-01YoiFleerjOhiohealth Arthur G.H. [facility], Md, Cancer Center Comment on above:Performed By: #### BMP #### [facility] ([id number]) [address], [address] [place], [place] [address]Syhanbpzs [Moles/Vol]4.1 mmol/LNormal3.5-5.0ProOhiohealth Arthur G.H. Bing, Md, Cancer CenterComment on above:Performed By: #### BMP #### [facility] ([id number]) [address], [address] [place], [place] [address]Jpovfg [Moles/Vol]141 mmol/IFrdywk171-826LttNrtdti [place] HospitalComment on above:Performed By: #### BMP #### [facility] ([id number]) [address] [place], [place] [address]Kdjx nitrogen [Mass/Vol]19 mg/dLNormal5-27ProOhiohealth Arthur G.H. Bing, Md, Cancer CenterComment on above:Performed By: #### BMP #### [facility] ([id number]) [address] [place], [place] [address]Itewh Metabolic Panelon 79-76-4248Wpbqx gap [Moles/Vol]9 mmol/L5 - 15 mmol/[facility] Health SystemCalcium [Mass/Vol]9.1 mg/dL8.5 - 10.5 mg/dL ProMBlanchard Valley Health System Blanchard Valley HospitalChloride [Moles/Vol]101 mmol/L98 - 109 mmol/[facility] Health SystemCO2 [Moles/Vol]31 mmol/L22 - 32 mmol/[facility] Creatinine [Mass/Vol]1.36 mg/dLHigh0.40 - 1.00 mg/dLOhioHealth Van Wert Hospital Comment on above:METHOD TRACEABLE TO [facility] STANDARDeGFR (CKD-EPI)non-race yprltgrvf19CcqBon Secours DePaul Medical CenterComment on above: Reported eGFR is based on the CKD-EPI 2020 equation that does not use a race coefficient. Glucose [Mass/Vol]134 mg/wIJgtm20 - 99 mg/dLOhioHealth Van Wert Hospital Interpretation and review of laboratory resultsAbnoCape Fear/Harnett Health Potassium [Moles/Vol]4.1 mmol/L3.5 - 5.0 mmol/LProMedica Health SystemSodium [Moles/Vol]141 mmol/L134 - 146 mmol/[facility] SystemUrea nitrogen [Mass/Vol]19 mg/dL5 - 27 mg/dLWilkes-Barre General HospitalNo Panel Informationon 75-26-1722RtwmmEusebia Huertas DO 12/29/2023 3:11 PM Trigger Point Injection ([place] [address] [place] [address]): left gluteus tej on 12/29/2023 2:58 PM Indications: pain Details: 21 G needle Medications: 40 mg methylPREDNISolone acetate 40 MG/ML Outcome: tolerated well, no immediate complications Procedure, treatment alternatives, risks and benefits explained, specific risks discussed. [facility] Spine Single viewon 23-79-7867Liwsedq Result: Lateral lumbar and thoracic spine x-rays demonstrate to wedge deformities in the thoracic region both of them with a proximally 50 percent collapse. Estimated levels are T6 and T8. Impression: Stable appearance of compression fractures at T6 and T8 no new fractures Cipriano Huertas D.O.[facility] HospitalRadiology Study observation (narrative)[facility] SystemBASIC METABOLIC PANLon 21-41-0553Lpvtx gap [Moles/Vol] 7 mmol/LNormal5-15[facility] HospitalComment on above:Performed By: #### KEKE, , 2131-12, CBCA #### [facility] ([id number]) [address], [address] [place], [place] [address]Fsbqsuj [Mass/Vol]9.0 mg/dLNormal8.5-10.5Pro[facility]ica Westphalia HospitalComment on above:Performed By: #### KEKE, , 2131-12, CBCA #### [facility] ([id number]) [address], [address] [place], [place] [address]Qnuhrayi [Moles/Vol]105 mmol/EGqzant45-346RbbZhfclh [place] HospitalComment on above:Performed By: #### KEKE, , 2131-12, CBCA #### [facility] ([id number]) [address], [address] [place], [place] [address]ZK9 [Moles/Vol]28 mmol/RQcgijp93-64TeqKjxzjc [facility] Comment on above:Performed By: #### KEKE, , 2131-12, CBCA #### [facility] ([id number]) [address], [address] [place], [place] [address]Ddsyujqrsg [Mass/Vol]1.23 mg/dLHigh0.40-1.00Pro[facility] HospitalComment on above:Result Comment: METHOD TRACEABLE TO IDMS STANDARD Performed By: #### KEKE, , 2131-12, CBCA #### [facility] ([id number]) [address], [address] [place], [place] [address]QCO/1.73 sq M.predicted among non-blacks MDRD (S/P/Bld) [Vol rate/Area]50 mL/min/{1.73_m2}Low>59[facility] HospitalComment on above: Result Comment: Reported eGFR is based on the CKD-EPI 2020 equation that does not use a race coefficient.Performed By: #### KEKE, , 2131-12, CBCA #### [facility] ([id number]) [address], [address] [place], [place] [address]Txzbula [Mass/Vol]88 mg/bAWvmhyb39-17QnyXwmmip [facility] Comment on above:Performed By: #### KEKE, , 2131-12, CBCA #### [facility] ([id number]) [address], [address] [place], [place] [address]Gpntlpbvx [Moles/Vol]3.9 mmol/LNormal3.5-5.0Pro[facility]ca [facility] HospitalComment on above:Performed By: #### KEKE, , 2131-12, CBCA #### [facility] ([id number]) [address] [address] [place], [place] [address]Vzjyzg [Moles/Vol]140 mmol/KWxrkor592-217NqaRduihg [place] HospitalComment on above:Performed By: #### KEKE, , 2131-12, CBCA #### [facility] ([id number]) [address], [address] [place], [place] [address]Iyut nitrogen [Mass/Vol]17 mg/dLNormal5-27Pro[facility] HospitalComment on above:Performed By: #### KEKE, , 2131-12, CBCA #### [facility] ([id number]) [address], [address] [place], [place] [address]PNT AND AUTO DIFFon [id number] BASOPHIL0.1 X10E9/LNormal 0.0-0.2ProMedica Westphalia HospitalComment on above:Performed By: #### KEKE, , 2131-12, CBCA #### [facility] ([id number]) [address], [address] [place], [place] [address]ITHQSRPL NEUTROPHIL5.8 X10E9/LNormal1.5-6.6ProMedica Westphalia HospitalComment on above:Performed By: #### KEKE, , 2131-12, CBCA #### [facility] ([id number]) [address], [address] [place], [place] [address]Xotoyleen/100 WBC (Bld)0.6 %NormalMain Campus Medical Center Comment on above:Performed By: #### KEKE, , 2131-12, CBCA #### [facility] ([id number]) [address], [address] [place], [place] [address]Wvvfbvioqdu (Bld) [#/Vol]0.2 10*3/uLNormal0.0-0.4ProGreen Cross Hospital HospitalComment on above:Performed By: #### KEKE, , 2131-12, CBCA #### [facility] ([id number]) [address], [address] [place], [place] [address]Pfzihlwmbnd/100 WBC (Bld)1.9 %NormalMain Campus Medical Center Comment on above:Performed By: #### KEKE, , 2131-12, CBCA #### [facility] ([id number]) [address], [address] [place], [place] [address]Tnlburlwexe distribution width (RBC) [Ratio]17.0 %High11.5-15.0 [facility]phalia HospitalComment on above:Performed By: #### KEKE, , , CBCA #### [facility] ([id number]) [address], [address] [place], [place] [address]Dhapzrxekh (Bld) [Volume fraction]33.9 %Guy52-30BzqNpbszj [place] HospitalComment on above:Performed By: #### KEKE, , 2131-12, CBCA #### [facility] ([id number]) [address], [address] [place], [place] [address]Vxpdjoywrv (Bld) [Mass/Vol]10.6 g/dLLow11.7-15.5ProMedOur Lady of Mercy Hospital HospitalComment on above:Performed By: #### KEKE, , 2131-12, CBCA #### [facility] ([id number]) [address], [address] [place], [place] [address]Ihepmiyzhkw (Bld) [#/Vol]2.3 10*3/uLNormal1.0-3.5PRegional Medical Center HospitalComment on above:Performed By: #### KEKE, , 2131-12, CBCA #### [facility] ([id number]) [address], [address] [place], [place] [address]Agwolgthpmc/100 WBC (Bld)25.6 %NormalMain Campus Medical Center Comment on above:Performed By: #### KEKE, , 2131-12, CBCA #### [facility] ([id number]) [address], [address] [place], [place] [address]XOU (RBC) [Entitic mass]26.1 fwQha82-42JmqSvqxbhMain Campus Medical Center Comment on above:Performed By: #### KEKE, , 2131-12, CBCA #### [facility] ([id number]) [address], [address] [place], [place] [address]PQIG (RBC) [Mass/Vol]31.2 g/dHDmm77-93UjeQwdredMain Campus Medical Center Comment on above:Performed By: #### KEKE, , 2131-12, CBCA #### [facility] ([id number]) [address], [address] [place], [place] [address]ZMP (RBC) [Entitic vol]84 bXIfqkbu40-078YncIpecmq [place] HospitalComment on above:Performed By: #### KEKE, , 2131-12, CBCA #### [facility] ([id number]) [address], [address] [place], [place] [address]Ylvvibcgo (Bld) [#/Vol]0.6 10*3/uLNormal0-0.9ProOhiohealth Arthur G.H. Bing, Md, Cancer CenterComment on above:Performed By: #### KEKE, , 2131-12, CBCA #### [facility] ([id number]) [address], [address] [place], [place] [address]Acsmzibxf/100 WBC (Bld)6.8 %[facility] Comment on above:Performed By: #### KEKE, , 2131-12, CBCA #### [facility] ([id number]) [address], [address] [place], [place] [address]Mulzjsnymap/100 WBC (Bld)65.1 %[facility] Comment on above:Performed By: #### KEKE, , 2131-12, CBCA #### [facility] ([id number]) [address], [address] [place], [place] [address]Yvqtzdkl mean volume (Bld) [Entitic vol]8.1 fLNormal7-12 ProMdch regional medical centera Westphalia HospitalComment on above:Performed By: #### KEKE, , , CBCA #### [facility] ([id number]) [address], [address] [place], [place] [address]Zzylpgoux (Bld) [#/Vol]287 10*3/qCKsxasf481-449OrgQzxujk Westphalia HospitalComment on above:Performed By: #### KEKE, , 2131-12, CBCA #### [facility] ([id number]) [address], [address] [place], [place] [address]QQO COUNT4.05 X10E12/LNormal3.80-5.20ProMiami Valley Hospitalca [facility] Comment on above:Performed By: #### KEKE, , 2131-12, CBCA #### [facility] ([id number]) [address], [address] [place], [place] [address]AIX (Bld) [#/Vol]9.0 10*3/uLNormal4.0-11.0Pro[facility]phalia HospitalComment on above:Performed By: #### KEKE, , 2131-12, CBCA #### [facility] ([id number]) [address], [address] [place], [place] [address]UVSSOZSIRup 14-17-8900Furekkabo [Mass/Vol]2.2 mg/dLNormal1.8-2.6 [facility] HospitalComment on above:Performed By: #### KEKE, , , CBCA #### [facility] ([id number]) [address], [address] [place], [place] [address]ONHQUNP B12on 93-30-3813Ncyfglsae (Vitamin B12) [Mass/Vol]370 pg/eFSxkhky617-277HreNaoqmo [place] HospitalComment on above:Performed By: #### KEKE, , 2131-12, CBCA #### [facility] ([id number]) [address], [address] [place], [place] [address]BSPLK METABOLIC PANLon 53-52-9080Qycth gap [Moles/Vol]14 mmol/L Normal5-15ProGreen Cross Hospital HospitalComment on above:Performed By: #### KAIDEN 2131-12, KEKE, CBCA #### [facility] ([id number]) [address], [address] [place], [place] [address]Frtgnou [Mass/Vol]9.4 mg/dLNormal8.5-10.5PCorey HospitalComment on above:Performed By: #### KAIDEN 2131-12, BMP, CBCA #### [facility] ([id number]) [address], [facility] [address] [place], [place] [address]Diriocuy [Moles/Vol]104 mmol/ONdbuks75-274ZpuIakfmp [place] HospitalComment on above:Performed By: #### KAIDEN 2131-12, KEKE, CBCA #### [facility] ([id number]) [address], [address] [place], [place] [address]XM4 [Moles/Vol]27 mmol/MFlhzsl32-35IprXqglwm [facility] Comment on above:Performed By: #### KAIDEN 2131-12, KEKE, CBCA #### [facility] ([id number]) [address], [address] [place], [place] [address]Dqxszdshfy [Mass/Vol]1.85 mg/dLHigh0.40-1.00ProOhiohealth Arthur G.H. Bing, Md, Cancer CenterComment on above:Result Comment: METHOD TRACEABLE TO IDMS STANDARD Performed By: #### KAIDEN 2131-12, BMP, CBCA #### [facility] ([id number]) [address] [address] [place], [place] [address]IDO/1.73 sq M.predicted among non-blacks MDRD (S/P/Bld) [Vol rate/Area]31 mL/min/{1.73_m2}Low>59ProOhiohealth Arthur G.H. Bing, Md, Cancer CenterComment on above: Result Comment: Reported eGFR is based on the CKD-EPI 2020 equation that does not use a race coefficient.Performed By: #### KAIDEN 2131-12, BMP, CBCA #### [facility] ([id number]) [address], [address] [place], [place] [address]Tsxroit [Mass/Vol]128 mg/jMWlod67-01MlwVthbloOhiohealth Arthur G.H. [facility], Md, Cancer Center Comment on above:Performed By: #### KAIDEN 2131-12, BMP, CBCA #### [facility] ([id number]) [address], [address] [place] [address]Amrbdrqed [Moles/Vol]3.9 mmol/LNormal3.5-5.0ProOhiohealth Arthur G.H. Bing, Md, Cancer CenterComment on above:Performed By: #### KAIDEN 2131-12, BMP, CBCA #### [facility] ([id number]) [address], [address] [address]Jvhsmt [Moles/Vol]145 mmol/TPizikg622-876DmyVqbygc [place] HospitalComment on above:Performed By: #### KAIDEN 2131-12, BMP, CBCA #### [facility] ([id number]) [address], [address] [address]Nhnv nitrogen [Mass/Vol]36 mg/dLHigh5-27ProOhiohealth Arthur G.H. Bing, Md, Cancer CenterComment on above:Performed By: #### KAIDEN 2131-12, BMP, CBCA #### [facility] ([id number]) [address], [address] [place] [address]Dmarr Metabolic Panelon 46-69-3159Tukax gap [Moles/Vol]14 mmol/L 5 - 15 mmol/LProMedica Health SystemCalcium [Mass/Vol]9.4 mg/dL8.5 - 10.5 mg/dL [facility] Health SystemChloride [Moles/Vol]104 mmol/L98 - 109 mmol/LProMedica Health SystemCO2 [Moles/Vol]27 mmol/L22 - 32 mmol/LProMedica Health System Creatinine [Mass/Vol]1.85 mg/dLHigh0.40 - 1.00 mg/dLOhioHealth Van Wert Hospital Comment on above:METHOD TRACEABLE TO IDIA STANDARDeGFR (CKD-EPI)non-race yuwevyjtq67Jot- PINFreeman Heart InstituteComment on above: Reported eGFR is based on the CKD-EPI 2020 equation that does not use a race coefficient. Glucose [Mass/Vol]128 mg/kAJzob17 - 99 mg/dLOhioHealth Van Wert Hospital Interpretation and review of laboratory resultsAbnormalOhioHealth Van Wert Hospital Potassium [Moles/Vol]3.9 mmol/L3.5 - 5.0 mmol/LPrPremier Health Miami Valley Hospital SystemSodium [Moles/Vol]145 mmol/L134 - 146 mmol/[facility] HospitalUrea nitrogen [Mass/Vol]36 mg/dLHigh5 - 27 mg/dLWilkes-Barre General Hospital CBC AND AUTO DIFFon 74-33-9080WGHFJSQE BASOPHIL0.0 X10E9/LNormal0.0-0.2PCorey HospitalComment on above:Performed By: #### KAIDEN 2131-12, BMP, CBCA #### [facility] ([id number]) [address], [address] [place], [place] [address]NIFNLLVA NEUTROPHIL5.8 X10E9/LNormal1.5-6.6[facility] Campus Medical CenterComment on above:Performed By: #### KAIDEN 2131-12, KEKE, CBCA #### [facility] ([id number]) [address] [place], [place] [address]Jaiskrbem/100 WBC (Bld)0.4 %NormalMain Campus Medical Center Comment on above:Performed By: #### KAIDEN 2131-12, BMP, CBCA #### [facility] ([id number]) [address], [address] [place], [place] [address]Esicmxtvxil (Bld) [#/Vol]0.0 10*3/uLNormal0.0-0.4[facility] Medical CenterComment on above:Performed By: #### KAIDEN 2131-12, BMP, CBCA #### [facility] ([id number]) [address], [address] [place], [place] [address]Ptevyyjiihn/100 WBC (Bld)0.0 %[facility] Comment on above:Performed By: #### KAIDEN 2131-12, BMP, CBCA #### [facility] ([id number]) [address], [address] [place], [place] [address]Pgpuoqunxzr distribution width (RBC) [Ratio]16.2 %High11.5-15.0 [facility]phalia HospitalComment on above:Performed By: #### KAIDEN 2131-12, BMP, CBCA #### [facility] ([id number]) [address], [facility] [address] [place], [place] [address]Tkayclcjjn (Bld) [Volume fraction]35.1 %Zpjtng51-32WqvDlipunOhiohealth Arthur G.H. Bing, Md, Cancer CenterComment on above:Performed By: #### KAIDEN 2131-12, BMP, CBCA #### [facility] ([id number]) [address] [address] [place], [place] [address]Vpyeakzjsn (Bld) [Mass/Vol]11.3 g/dLLow11.7-15.5PCorey HospitalComment on above:Performed By: #### KAIDEN 2131-12, BMP, CBCA #### [facility] ([id number]) [address], [address] [place], [place] [address]Ooxkttghzxm (Bld) [#/Vol]1.1 10*3/uLNormal1.0-3.5PCorey HospitalComment on above:Performed By: #### KAIDEN 2131-12, BMP, CBCA #### [facility] ([id number]) [address], [address] [place], [place] [address]Ryqvmhlzejs/100 WBC (Bld)15.7 %[facility] Comment on above:Performed By: #### THYDasha, 2131-12, BMP, CBCA #### [facility] ([id number]) [address], [address] [place], [place] [address]BHS (RBC) [Entitic mass]27.0 fxTslanc32-38DdbKyfkjk Miller HospitalComment on above:Performed By: #### THYDasha, 2131-12, BMP, CBCA #### [facility] ([id number]) [address], [address] [place], [place] [address]PJSW (RBC) [Mass/Vol]32.2 g/cCWekxls49-09YorGrhlgq [facility] HospitalComment on above:Performed By: #### KAIDEN, 2131-12, BMP, CBCA #### [facility] ([id number]) [address], [address] [place], [place] [address]BJY (RBC) [Entitic vol]84 pOPneehq91-124RstYsmdvu Miller HospitalComment on above:Performed By: #### THYDasha, 2131-12, BMP, CBCA #### [facility] ([id number]) [address], [address] [place], [place] [address]Sjcqevlqq (Bld) [#/Vol]0.2 10*3/uLNormal0-0.9ProMedica Miller HospitalComment on above:Performed By: #### THYDasha, 2131-12, BMP, CBCA #### [facility] ([id number]) [address], [address] [place], [place] [address]Gqkapfrxl/100 WBC (Bld)2.3 %NormalProMedica Miller Hospital Comment on above:Performed By: #### THYR, 2131-12, BMP, CBCA #### [facility] ([id number]) [address], [address] [place], [place] [address]Gemquuewvpk/100 WBC (Bld)81.6 %NormalProMedica Miller Hospital Comment on above:Performed By: #### KAIDEN, 2131-12, BMP, CBCA #### [facility] ([id number]) [address], [address] [place], [place] [address]Xhapscal mean volume (Bld) [Entitic vol]8.1 fLNormal7-12 [facility] Medical CenterComment on above:Performed By: #### KAIDEN, 2131-12, BMP, CBCA #### [facility] ([id number]) [address], [address] [place], [place] [address]Sgrqotlfs (Bld) [#/Vol]380 10*3/hYYdpkni081-867CixHfzmyg [place] HospitalComment on above:Performed By: #### KAIDEN, 2131-12, BMP, CBCA #### [facility] ([id number]) [address], [address] [place] [address]NIA COUNT4.19 X10E12/LNormal3.80-5.20[facility] Comment on above:Performed By: #### KAIDEN, 2131-12, BMP, CBCA #### [facility] ([id number]) [address], [address] [place] [address]FTK (Bld) [#/Vol]7.2 10*3/uLNormal4.0-11.0[facility] Medical CenterComment on above:Performed By: #### KAIDEN, 2131-12, BMP, CBCA #### [facility] ([id number]) [address], [address] [place] [address]UWG auto differentialon 77-32-1423Utxiejzaf (Bld) [#/Vol]0.0 10*3/uLProMedica Health SystemBasophils/100 WBC (Bld)0.4 %ProMNorthland Medical Center SystemEosinophils (Bld) [#/Vol]0.0 10*3/uLProMedica Health SystemEosinophils/100 WBC (Bld)0.0 %[facility] HospitalErythrocyte distribution width (RBC) [Ratio]16.2 %High11.5 - 15.0 %[facility] HospitalHematocrit (Bld) [Volume fraction]35.1 %35 - 47 %[facility] HospitalHemoglobin (Bld) [Mass/Vol]11.3 g/dLLow11.7 - 15.5 g/dLOhioHealth Van Wert HospitalInterpretation and review of laboratory resultsAbnormToledo HospitalLymphocytes (Bld) [#/Vol]1.1 10*3/[facility]Source SaginawLymphocytes/100 WBC (Bld)15.7 %[facility] HospitalMCH (RBC) [Entitic mass]27.0 pg27 - 34 pgPSouthview Medical CenterMCHC (RBC) [Mass/Vol]32.2 g/dL32 - 36 g/dLOhioHealth Van Wert HospitalMCV (RBC) [Entitic vol]84 fL80 - 100 [facility] HospitalMonocytes (Bld) [#/Vol]0.2 10*3/[facility] SaginawMonocytes/100 WBC (Bld)2.3 %[facility] HospitalNeutrophils (Bld) [#/Vol]5.8 10*3/[facility] SaginawNeutrophils/100 WBC (Bld)81.6 % [facility] HospitalPlatelet mean volume (Bld) [Entitic vol]8.1 fL7 - 12 fL [facility] HospitalPlatelets (Bld) [#/Vol]380 10*3/[facility] RBC (Bld) [#/Vol]4.19 10*6/[facility] SaginawWBC corrected for nucl RBC Auto (Bld) [#/Vol]7.2PChestnut Hill HospitalCobalamin (Vitamin B12) [Mass/Vol]on 01-21-1313SwxWwsmbfSouthview Medical CenterTHYROID PROFILEon 16-99-0374Ickq T4 [Mass/Vol]1.19 ng/dLNormal0.61-1.60[facility] Comment on above:Performed By: #### THYR, 2132-9, BMP, CBCA #### [facility] ([id number]) [address], [address] [place], [place] [address]GRU7.11 uIU/mLLow0.49-4.67[facility] Medical CenterComment on above:Performed By: #### THYR, 2131-12, BMP, CBCA #### [facility] ([id number]) [address], [address] [place], [place] [address]Vvfxomx profile includes TSH FT4on 63-62-8910Kraz T4 [Mass/Vol] 1.19 ng/dL0.61 - 1.60 ng/dLOhioHealth Van Wert HospitalInterpretation and review of laboratory resultsAbnormalNovant Health Matthews Medical Center Qn0.11 m[IU]/LLowWilkes-Barre General HospitalVITAMIN B12on 37-59-5980Exrqwexjz (Vitamin B12) [Mass/Vol]204 pg/sZBjdhgu945-049PhkEbmbjf [place] HospitalComment on above: Performed By: #### THYR, 2131-12, BMP, CBCA #### [facility] ([id number]) [address], [address] [place], [place] [address]Rbmoqrb B12on 43-83-2479Pzwcmqzbz (Vitamin B12) [Mass/Vol]204 pg/mL180 - 914 pg/mLOhioHealth Van Wert HospitalPOCT Influenza A/Influenza B/SARS-COV-2 Veritoron 95-97-9937Mbmcjzfi Poct Influenza A AntigenNegative [facility] HospitalExternal Poct Influenza B AntigenNegativeNovant Health Charlotte Orthopaedic HospitalARS-CoV-2 (COVID-19) Ag IA.rapid Ql (Resp)NegativeWilkes-Barre General HospitalXR Chest PA and Lateralon 09-24-2023 Clinical [...] by Tristen Neely MD on 09/24/2023 11:13 PMSECTRAPACSDisjoe, Tristen Magana MD - 09/24/2023 Clinical history: Community-acquired pneumonia. [...] Tristen Neely MD on 09/24/2023 11:13 PM [facility] HospitalRadiology Study observation (narrative)[facility] AppwoRx [facility] HealthXR Chest PA and LateralOrdered By: Tristen Neely on 66-34-2161NlhXiqhoySouthview Medical Center Work Phone: Basic Metabolic Panelon 90-37-8824Nsdoj gap [Moles/Vol]8 mmol/L5 - 15 mmol/LProMedica Health SystemCalcium [Mass/Vol]9.0 mg/dL8.5 - 10.5 mg/dLProMediChildren's Hospital of Columbus SystemChloride [Moles/Vol]100 mmol/L98 - 109 mmol/LProMedica Health SystemCO2 [Moles/Vol]28 mmol/L22 - 32 mmol/LProMedica Health SystemCreatinine [Mass/Vol]1.06 mg/dLHigh0.40 - 1.00 mg/dLOhioHealth Van Wert HospitalComment on above:METHOD TRACEABLE TO [facility] STANDARDeGFR (CKD-EPI)non-race rpqxyejlm[address] [place], [place] [address]Comment on above: Reported eGFR is based on the CKD-EPI 1 equation that does not use a race coefficient. Glucose [Mass/Vol]148 mg/lHAoaj29 - 99 mg/dLOhioHealth Van Wert Hospital Interpretation and review of laboratory resultsAbnoJeanes Hospital System Potassium [Moles/Vol]3.4 mmol/LLow3.5 - 5.0 mmol/LProMedica Health SystemSodium [Moles/Vol]136 mmol/L134 - 146 mmol/LProMedica Health SystemUrea nitrogen [Mass/Vol]24 mg/dL5 - 27 mg/dLWilkes-Barre General Hospital Basic Metabolic Panelon 57-94-9773Qzzxl gap [Moles/Vol]9 mmol/L5 - 15 mmol/L [facility] SystemCalcium [Mass/Vol]8.8 mg/dL8.5 - 10.5 mg/dLOhioHealth Van Wert HospitalChloride [Moles/Vol]103 mmol/L98 - 109 mmol/LProMedst. vincent's chilton Health SystemCO2 [Moles/Vol]27 mmol/L22 - 32 mmol/[facility] SystemCreatinine [Mass/Vol]1.18 mg/dLHigh0.40 - 1.00 mg/dLOhioHealth Van Wert HospitalComment on above:METHOD TRACEABLE TO [facility] STANDARDeGFR (CKD-EPI)non-race iqncozjmt81NfcBon Secours DePaul Medical CenterComment on above: Reported eGFR is based on the CKD-EPI 1 equation that does not use a race coefficient. Glucose [Mass/Vol]157 mg/zOEefa68 - 99 mg/dLOhioHealth Van Wert Hospital Interpretation and review of laboratory resultsAbnoJeanes Hospital System Potassium [Moles/Vol]3.7 mmol/L3.5 - 5.0 mmol/LProMedica Health SystemSodium [Moles/Vol]139 mmol/L134 - 146 mmol/[facility] ClaytonoMedst. vincent's chilton Health SystemUrea nitrogen [Mass/Vol]18 mg/dL5 - 27 mg/dLWilkes-Barre General Hospital Basic Metabolic Panelon 87-85-6717Dqhpn gap [Moles/Vol]5 mmol/L5 - 15 mmol/L [facility] HospitalCalcium [Mass/Vol]8.7 mg/dL8.5 - 10.5 mg/dLOhioHealth Van Wert HospitalChloride [Moles/Vol]104 mmol/L98 - 109 mmol/[facility] SystemCO2 [Moles/Vol]27 mmol/L22 - 32 mmol/[facility] SystemCreatinine [Mass/Vol]1.57 mg/dLHigh0.40 - 1.00 mg/dLOhioHealth Van Wert HospitalComment on above:METHOD TRACEABLE TO IDIA STANDARDeGFR (CKD-EPI)non-race fjdbjngdu47Egn- Centra HealthComment on above: Reported eGFR is based on the CKD-EPI 2020 equation that does not use a race coefficient. Glucose [Mass/Vol]107 mg/tIUyel48 - 99 mg/dLOhioHealth Van Wert Hospital Interpretation and review of laboratory resultsAbnoCape Fear/Harnett Health Potassium [Moles/Vol]3.6 mmol/L3.5 - 5.0 mmol/[facility] SystemSodium [Moles/Vol]136 mmol/L134 - 146 mmol/[facility] HospitalUrea nitrogen [Mass/Vol]21 mg/dL5 - 27 mg/dLWilkes-Barre General Hospital Blood gas, venouson 72-93-8661Seciwjxq patency Wrist artery --pre arterial punctureOhioHealth Van Wert HospitalBase deficit (Bld) [Moles/Vol]1.0 mmol/[facility] HospitalCO2 (BldV) [Partial pressure]67.8 mm[Hg]Stafford HospitalHCO3 (Bld) [Moles/Vol]28.0 mmol/LHighOhioHealth Van Wert HospitalInterpretation and review of laboratory resultsAbnormWellSpan Surgery & Rehabilitation Hospital SystemOxygen (BldV) [Partial pressure]43 mm[Hg][facility] HospitalOxygen therapy source and amount [CARE]NCChildren's Hospital for Rehabilitation SystemOxygen/Inspired gas setting [Volume Fraction] Elzejbhlti26 %[facility] HospitalpH (BldV)7.224 [pH]Low7.320 - 7.420Nov[facility] Health Charlotte Orthopaedic HospitalaO2% Calculated from oxygen partial pressure (BldV) [Mass fraction]68.0 %Low80.0 - PINF %[facility] Orthopaedic Hospitalpecimen site NarrativeN/AProMarietta Memorial Hospitalpecimen type Nom (Spec)VENOUSWilkes-Barre General HospitalCBC auto differentialon 35-60-3034Cpcmddvzp (Bld) [#/Vol]0.1 10*3/[facility] SaginawBasophils/100 WBC (Bld)0.6 % [facility] HospitalEosinophils (Bld) [#/Vol]0.2 10*3/[facility] SaginawEosinophils/100 WBC (Bld)2.2 %[facility] HospitalErythrocyte distribution width (RBC) [Ratio]16.6 %High11.5 - 15.0 %[facility] Hematocrit (Bld) [Volume fraction]35.0 %35 - 47 %[facility] Hemoglobin (Bld) [Mass/Vol]11.3 g/dLLow11.7 - 15.5 g/dLOhioHealth Van Wert Hospital Interpretation and review of laboratory resultsAbnormToledo Hospital Lymphocytes (Bld) [#/Vol]2.6 10*3/[facility] SaginawLymphocytes/100 WBC (Bld)25.4 %[facility] HospitalMCH (RBC) [Entitic mass]29.3 pg27 - 34 pg [facility] HospitalMCHC (RBC) [Mass/Vol]32.3 g/dL32 - 36 g/dLOhioHealth Van Wert HospitalMCV (RBC) [Entitic vol]91 fL80 - 100 [facility] Monocytes (Bld) [#/Vol]0.6 10*3/[facility]aginawMonocytes/100 WBC (Bld) 5.7 %[facility] HospitalNeutrophils (Bld) [#/Vol]6.7 10*3/[facility] HospitalNeutrophils/100 WBC (Bld)66.1 %[facility] HospitalPlatelet mean volume (Bld) [Entitic vol]7.9 fL7 - 12 [facility] HospitalPlatelets (Bld) [#/Vol]308 10*3/[facility]awRBC (Bld) [#/Vol]3.86 10*6/uLOhioHealth Van Wert HospitalWBC corrected for nucl RBC Auto (Bld) [#/Vol]10.2PChestnut Hill HospitalCritical Careon [id number] Vohra, MD 07/25/2023 7:27 PM Critical Care [...] performing treatments and interventions and examination of patientWestfields Hospital and Clinic SystemECG 12 leadon [id number] Health SystemLaboratory - Microbiology and Antimicrobial susceptibilityon 07-25-2023 FLUAV+FLUBV RNA HUBERT+probe Ql (Unsp spec)NegativeNegative^NegativeOhioHealth Van Wert HospitalLactate (P yong) [Moles/Vol]on [id number] Medical Center Lactate w/ Reflexon [id number] (P yong) [Moles/Vol]1.1 mmol/L0.4 - 2.0 mmol/LPrOhioHealth Grady Memorial HospitalComment on above: Result did not trigger repeat Lactate, re-order if needed. SARS/FLU A+B/RSV by NAAT/Molecular (M4RT Collection Tube)on [id number] RNA HUBERT+probe Nom (Unsp spec)NegativeNegative^NegativeOhioHealth Van [facility] Hospital SARS-CoV-2 (COVID-19) RNA HUBERT+probe Ql (Resp)Not detectedNot Detected^Not DetectedOhioHealth Van Wert HospitalComment on above:NOTE The Xpert Xpress SARS-CoV-2/Flu/RSV [...] operators who are performing tests using either [employer] or [employer] systems and is limited to laboratories that [...] specimen repeat. Fact Sheet for Healthcare Providers: https://www.fda.gov/media/830178/download Fact Sheet for Patients: https://www.fda.gov/media/480357/download [facility] SystemTroponin Ion [id number] I.cardiac [Mass/Vol]0.01 ng/mL0.00 - 0.04 ng/mLProMedica Avita Health System SystemTroponin I.cardiac [Mass/Vol]on [id number] Medical CenterXR Chest PA and Lateralon [id number] Patel MD - 07/25/2023 Procedure: Chest x-ray performed Number of views:2 History:Shortness of breath Comparison:07/24/2023 Findings: The heart and lungs show no acute findings, and the mediastinum and satnam are grossly negative . Impression: 1. No acute change. Finalized by Abdelrahman Patel MD on 07/25/2023 5:16 PM [facility] HospitalRadiology Study observation (narrative)[facility] HospitalXR Chest PA and LateralOrdered By: Abdelrahman Patel on [id number] Medical Center Work Phone: Basi Metabolic Panelon [id number] gap [Moles/Vol]8 mmol/L5 - 15 mmol/[facility] SystemCalcium [Mass/Vol]9.5 mg/dL8.5 - 10.5 mg/dLOhioHealth Van Wert HospitalChloride [Moles/Vol]102 mmol/L98 - 109 mmol/[facility] SystemCO2 [Moles/Vol]32 mmol/L22 - 32 mmol/[facility] SystemCreatinine [Mass/Vol]1.27 mg/dLHigh0.40 - 1.00 mg/dLOhioHealth Van Wert HospitalComment on above:METHOD TRACEABLE TO [facility] STANDARDeGFR (CKD-EPI)non-race kjynmrlma29LvxBon Secours DePaul Medical CenterComment on above: Reported eGFR is based on the CKD-EPI 2020 equation that does not use a race coefficient. Glucose [Mass/Vol]87 mg/dL65 - 99 mg/dLOhioHealth Van Wert HospitalInterpretation and review of laboratory resultsAbnormalOhioHealth Van Wert HospitalPotassium [Moles/Vol]4.0 mmol/L3.5 - 5.0 mmol/LProMedica Health SystemSodium [Moles/Vol] 142 mmol/L134 - 146 mmol/[facility] SystemUrea nitrogen [Mass/Vol]15 mg/dL5 - 27 mg/dLWilkes-Barre General HospitalCBC auto differentialon 75-59-2797Hcqszwcjn (Bld) [#/Vol]0.1 10*3/uLOhioHealth Van Wert HospitalBasophils/100 WBC (Bld)0.6 %[facility] HospitalEosinophils (Bld) [#/Vol]0.1 10*3/[facility]Eosinophils/100 WBC (Bld)1.3 %[facility] HospitalErythrocyte distribution width (RBC) [Ratio]19.3 %High11.5 - 15.0 %[facility] HospitalHematocrit (Bld) [Volume fraction]35.7 %35 - 47 % [facility] HospitalHemoglobin (Bld) [Mass/Vol]11.5 g/dLLow11.7 - 15.5 g/dL [facility] HospitalInterpretation and review of laboratory resultsAbnormal [facility] HospitalLymphocytes (Bld) [#/Vol]1.5 10*3/[facility]aginawLymphocytes/100 WBC (Bld)14.5 %[facility] CenterH (RBC) [Entitic mass]29.3 pg27 - 34 [facility] HospitalMCHC (RBC) [Mass/Vol]32.2 g/dL32 - 36 g/dLOhioHealth Van Wert HospitalMCV (RBC) [Entitic vol]91 fL80 - 100 [facility] HospitalMonocytes (Bld) [#/Vol]0.6 10*3/[facility] Monocytes/100 WBC (Bld)5.8 %[facility] HospitalNeutrophils (Bld) [#/Vol]8.1 10*3/[facility] HospitalNeutrophils/100 WBC (Bld)77.8 %[facility] HospitalPlatelet mean volume (Bld) [Entitic vol]8.9 fL7 - 12 [facility] HospitalPlatelets (Bld) [#/Vol]321 10*3/[facility]aginawRBC (Bld) [#/Vol]3.92 10*6/[facility]aginawWBC corrected for nucl RBC Auto (Bld) [#/Vol]10.5PChestnut Hill HospitalTSH with Reflexon [id number] Qn0.80 m[IU]/[facility] HospitalCBC AND AUTO DIFFon 04-02-8952HMJBVUNQ BASOPHIL0.1 X10E9/LNormal0.0-0.2ProMedica Lake District HospitalComment on above:Performed By: #### XENIA, 39858-9, , CBCA #### [facility] ([id number]) [address] [facility] [place], [place] [address]LFDMHQVB NEUTROPHIL6.7 X10E9/LHigh1.5-6.6ProWyandot Memorial HospitalComment on above:Performed By: #### XENIA, 20400-5, , CBCA #### [facility] ([id number]) [address] [place] [place], [place] [address]Sodpzpvue/100 WBC (Bld)1.2 %NormalKettering Health Main Campus Comment on above:Performed By: #### XENIA, 31114-4, , CBCA #### [facility] ([id number]) [address] [place], [place] [address]Qmbzsnzjpyu (Bld) [#/Vol]0.2 10*3/uLNormal0.0-0.4ProWyandot Memorial HospitalComment on above:Performed By: #### XENIA, 10853-5, , CBCA #### [facility] ([id number]) [address] [place], [place] [address]Xgjwxspfzyx/100 WBC (Bld)2.2 %NormalKettering Health Main Campus Comment on above:Performed By: #### XENIA, 62653-4, , CBCA #### [facility] ([id number]) [address] [place], [place] [address]Zjmqoygxkjk distribution width (RBC) [Ratio]17.3 %High11.5-15.0 ProMProMedica Fostoria Community HospitalComment on above:Performed By: #### XENIA, 06773-1, , CBCA #### [facility] ([id number]) [address] [place], [place] [address]Ngnabwljqd (Bld) [Volume fraction]40.6 %Wpphky56-88UwqDmzusfWyandot Memorial HospitalComment on above:Performed By: #### CMP, 96600-0, , CBCA #### [facility] ([id number]) [address] [place], [place] [address]Mwpmfamfzh (Bld) [Mass/Vol]13.3 g/zTOksxlk68.7-15.5PSamaritan HospitalComment on above:Performed By: #### CMP, 76740-1, 35693-7, CBCA #### [facility] ([id number]) [address] [facility] [facility] [place], [place] [address]Wumvrdyyqld (Bld) [#/Vol]2.4 10*3/uLNormal1.0-3.5PSamaritan HospitalComment on above:Performed By: #### CMP, 18367-9, , CBCA #### [facility] ([id number]) [address] [place], [place] [address]Prurlwngeuu/100 WBC (Bld)22.7 %NormalProWyandot Memorial Hospital Comment on above:Performed By: #### CMP, 21590-9, , CBCA #### [facility] ([id number]) [address] [place], [place] [address]YUO (RBC) [Entitic mass]28.4 bdBfbawi64-22IfvRdjeiwKettering Health Main CampusComment on above:Performed By: #### CMP, 40127-9, , CBCA #### [facility] ([id number]) [address] [place], [place] [address]QRMX (RBC) [Mass/Vol]32.7 g/qMHyxdgz68-91VghRdtnafWyandot Memorial HospitalComment on above:Performed By: #### CMP, 80131-6, , CBCA #### [facility] ([id number]) [address] [place], [place] [address]WDV (RBC) [Entitic vol]87 sRStupof80-892EtoDncisk [facility]park HospitalComment on above:Performed By: #### CMP, 24341-8, 57157-1, CBCA #### [facility] ([id number]) [address] [place], [place] [address]Qkvwadqsb (Bld) [#/Vol]1.2 10*3/uLHigh0-0.9ProWyandot Memorial HospitalComment on above:Performed By: #### CMP, 05687-7, 56294-7, CBCA #### [facility] ([id number]) [address] [place], [place] [address]Lruccbsmk/100 WBC (Bld)11.2 %NormalKettering Health Main Campus Comment on above:Performed By: #### CMP, 51990-7, , CBCA #### [facility] ([id number]) [address] [place], [place] [address]Txaobldqqsw/100 WBC (Bld)62.7 %NormalKettering Health Main Campus Comment on above:Performed By: #### CMP, 10344-4, , CBCA #### [facility] ([id number]) [address] [place], [place] [address]Rrogoipk mean volume (Bld) [Entitic vol]8.3 fLNormal7-12 ProMProMedica Fostoria Community HospitalComment on above:Performed By: #### CMP, 05681-9, , CBCA #### [facility] ([id number]) [address] [place], [place] [address]Ofepfylkp (Bld) [#/Vol]301 10*3/sIUqovbx934-775PcrNaajuv [facility] HospitalComment on above:Performed By: #### CMP, 30037-6, 54286-6, CBCA #### [facility] ([id number]) [address] [place], [place] [address]NXS COUNT4.68 X10E12/LNormal3.80-5.20[facility] Comment on above:Performed By: #### CMP, 75391-9, 54714-1, CBCA #### [facility] ([id number]) [address] [place], [place] [address]SRM (Bld) [#/Vol]10.7 10*3/uLNormal4.0-11.0ProWyandot Memorial HospitalComment on above:Performed By: #### XENIA, 33994-5, , CBCA #### [facility] ([id number]) [address] [place], [place] [address]POKFUFRZUZAGL METABOLIC PANELon 01-81-4347Nogmgin [Mass/Vol]3.5 g/dLNormal3.2-5.3ProMedOhioHealth Grady Memorial Hospital HospitalComment on above:Performed By: #### XENIA, 47614-4, 26645-2, CBCA #### [facility] ([id number]) [address] [place], [place] [address]PRS [Catalytic activity/Vol]72 U/MZgxohg75-863ItbFumzjkWyandot Memorial HospitalComment on above:Performed By: #### XENIA, 63134-3, 51390-9, CBCA #### [facility] ([id number]) [address] [place], [place] [address]YJS [Catalytic activity/Vol]42 U/LHigh0-31PSamaritan HospitalComment on above:Performed By: #### XENIA, 02607-1, , CBCA #### [facility] ([id number]) [address] [place], [place] [address]Esifw gap [Moles/Vol]9 mmol/LNormal5-15ProGeorgetown Behavioral Hospital HospitalComment on above:Performed By: #### CMP, 33245-5, 08594-4, CBCA #### [facility] ([id number]) [address] [place], [place] [address]GGN [Catalytic activity/Vol]22 U/LNormal0-41ProGeorgetown Behavioral Hospital HospitalComment on above:Performed By: #### XENIA, 41459-1, 94768-4, CBCA #### [facility] ([id number]) [address] [place], [place] [address]Pmzonuotu [Mass/Vol]0.8 mg/dLNormal0.3-1.2PSamaritan HospitalComment on above:Performed By: #### XENIA, 44224-1, , CBCA #### [facility] ([id number]) [address] [place], [place] [address]Fuqevpp [Mass/Vol]10.2 mg/dLNormal8.5-10.5PSamaritan HospitalComment on above:Performed By: #### XENIA, 74478-6, , CBCA #### [facility] ([id number]) [address] [place], [place] [address]Ujbkbnfp [Moles/Vol]105 mmol/VMwqhse19-863EhpWutnayKettering Health Main CampusComment on above:Performed By: #### XENIA, 54755-5, , CBCA #### [facility] ([id number]) [address] [place], [place] [address]QS1 [Moles/Vol]22 mmol/DLydvez75-73MgiWpvihvSamaritan Hospital Comment on above:Performed By: #### XENIA, 05983-2, , CBCA #### [facility] ([id number]) [address] [place], [place] [address]Efumsgcutb [Mass/Vol]1.29 mg/dLHigh0.40-1.00K[facility] Health Main CampusComment on above:Result Comment: METHOD TRACEABLE TO IDMS STANDARD Performed By: #### XENIA, 06667-6, , CBCA #### [facility] ([id number]) [address] [place], [place] [address]NIG/1.73 sq M.predicted among non-blacks MDRD (S/P/Bld) [Vol rate/Area]48 mL/min/{1.73_m2}Low>59ProWyandot Memorial HospitalComment on above: Result Comment: Reported eGFR is based on the CKD-EPI 2020 equation that does not use a race coefficient.Performed By: #### XENIA, 56304-8, , CBCA #### [facility] ([id number]) [address] [place], [place] [address]Aodgpdq [Mass/Vol]116 mg/dJDajw29-58RapNmwsqcWyandot Memorial Hospital Comment on above:Performed By: #### XENIA, 29342-8, 18517-3, CBCA #### [facility] ([id number]) [address] [facility] [facility] [place], [place] [address]Fiaimpeie [Moles/Vol]3.2 mmol/LLow3.5-5.0ProWyandot Memorial HospitalComment on above:Performed By: #### XENIA, 12147-7, 67761-1, CBCA #### [facility] ([id number]) [address] [place], [place] [address]Umuwwvl [Mass/Vol]7.8 g/dLNormal6.0-8.0ProWyandot Memorial HospitalComment on above:Performed By: #### XENIA, 83846-1, , CBCA #### [facility] ([id number]) [address] [facility] [place], [place] [address]Xiomfs [Moles/Vol]136 mmol/BFdkwnz062-202OhyZnaezy [facility]park HospitalComment on above:Performed By: #### XENIA, 40570-7, , CBCA #### [facility] ([id number]) [address] [facility] [place], [place] [address]Ryrw nitrogen [Mass/Vol]30 mg/dLHigh5-23ProWyandot Memorial HospitalComment on above:Performed By: #### XENIA, 35155-5, , CBCA #### [facility] ([id number]) [address] [facility] [place], [place] [address]NR ABDOMEN AND PELVIS WO CONTon 33-73-0864RN ABDOMEN AND PELVIS WO CONTCT ABDOMEN AND [...] by Kai Finn MD on 04/28/2023 10:39 PMNormalProWyandot Memorial HospitalGlucose Glucometer (BldC) [Mass/Vol]on 76-70-6523Txdhzln [Mass/Vol]148 mg/wHIojs87-74PmhMtduudKettering Health Main CampusGlucose [Mass/Vol]116 mg/zIMtdp90-29 [facility] CampusGlucose [Mass/Vol]134 mg/mVBwbt63-07GmfVjdjxqKettering Health Main CampusMAGNESIUMon 23-66-5182Pklbgazqs [Mass/Vol]2.3 mg/dLNormal1.8-2.6 [facility] CampusComment on above:Performed By: #### [facility], 69958-9, 47359-6, CBCA #### [facility] ([id number]) [address] [place], [place] [address]Evrspjnomr [Mass/Vol]on 90-01-2776PWNMACETGX76.1 ug/mLNormal 5.0-40.0K[facility] Main CampusComment on above:Result Comment: Peak 30-40 ug/mL Trough 5-20 ug/ml Performed By: #### XENIA, 50650-4, , CBCA #### [facility] ([id number]) [address] [facility] [place], [place] [address]ZGD AND AUTO DIFFon 05-53-8101AENCSUHR BASOPHIL0.1 X10E9/LNormal 0.0-0.2ProMedOhioHealth Grove City Methodist HospitalComment on above:Performed By: #### XENIA, 67130- 0, , CBCA #### [facility] ([id number]) [address] [facility] [place], [place] [address]Pafdfykvo/100 WBC (Bld)1.0 %NormalProWyandot Memorial Hospital Comment on above:Performed By: #### XENIA, 84259-7, , CBCA #### [facility] ([id number]) [address] [facility] [place], [place] [address]Vjnteyqwcax distribution width (RBC) [Ratio]17.6 %High11.5-15.0 [facility] District HospitalComment on above:Performed By: #### XENIA, 41378-1, , CBCA #### [facility] ([id number]) [address] [facility] [place], [place] [address]Pxuaxjifmg (Bld) [Volume fraction]42.6 %Ewkddu70-81PcjZiyjblWyandot Memorial HospitalComment on above:Performed By: #### XENIA, 39442-4, , CBCA #### [facility] ([id number]) [address] [facility] [place], [place] [address]Hrehhrqngt (Bld) [Mass/Vol]13.6 g/kXPjouyi94.7-15.5PSamaritan HospitalComment on above:Performed By: #### XENIA, 06932-9, , CBCA #### [facility] ([id number]) [address] [facility] [place], [place] [address]NTQSINEZCP, ATYPICAL1.9 %NormalProWyandot Memorial HospitalComment on above:Performed By: #### CMP, 26092-0, , CBCA #### [facility] ([id number]) [address] [facility] [place], [place] [address]Gjuiuktmjma (Bld) [#/Vol]3.1 10*3/uLNormal1.0-3.5ProMedica Lake District HospitalComment on above:Performed By: #### CMP, 12213-7, 34651-2, CBCA #### [facility] ([id number]) [address] [place] [address]Kijaqrygizd/100 WBC (Bld)29.5 %NormalProWyandot Memorial Hospital Comment on above:Performed By: #### XENIA, 93248-1, , CBCA #### [facility] ([id number]) [address] [facility] [place], [place] [address]WVL (RBC) [Entitic mass]27.7 gxRmivpf31-97HptXvdxdrWyandot Memorial HospitalComment on above:Performed By: #### XENIA, 00772-1, , CBCA #### [facility] ([id number]) [address] [facility] [place], [place] [address]GYAB (RBC) [Mass/Vol]32.0 g/vCIkfqbm22-53GsqVsjrxdWyandot Memorial HospitalComment on above:Performed By: #### CMP, 06691-5, , CBCA #### [facility] ([id number]) [address] [place], [place] [address]AZD (RBC) [Entitic vol]87 ePHuucsv34-662OhhFrszqj [facility] HospitalComment on above:Performed By: #### CMP, 59179-5, 13869-5, CBCA #### [facility] ([id number]) [address] [place], [place] [address]Qlzlfzzxl (Bld) [#/Vol]1.2 10*3/uLHigh0-0.9ProWyandot Memorial HospitalComment on above:Performed By: #### CMP, 76047-0, 46760-0, CBCA #### [facility] ([id number]) [address] [place], [place] [address]Latdekhgz/100 WBC (Bld)12.4 %NormalKettering Health Main Campus Comment on above:Performed By: #### XENIA, 64857-9, , CBCA #### [facility] ([id number]) [address] [place], [place] [address]Ifkivhflnbo (Bld) [#/Vol]5.4 10*3/uLNormal1.5-6.6ProWyandot Memorial HospitalComment on above:Performed By: #### XENIA, 62172-0, 06110-6, CBCA #### [facility] ([id number]) [address] [place], [place] [address]Qjnqxymk mean volume (Bld) [Entitic vol]8.6 fLNormal7-12 ProMedicLima City HospitalComment on above:Performed By: #### XENIA, 75066-6, , CBCA #### [facility] ([id number]) [address] [place], [place] [address]Pmgnhjjuj (Bld) [#/Vol]398 10*3/gUXlbmui248-324DzyYhlluo [facility] HospitalComment on above:Performed By: #### XENIA, 56393-6, , CBCA #### [facility] ([id number]) [address] [place], [place] [address]JDUIRUIYLLDQX0+AbnormalNONEProMedica Lake District HospitalComment on above:Performed By: #### XENIA, 55480-5, , CBCA #### [facility] ([id number]) [address] [place], [place] [address]CVZ COUNT4.92 X10E12/LNormal3.80-5.20ProWyandot Memorial Hospital Comment on above:Performed By: #### CMP, 55701-6, , CBCA #### [facility] ([id number]) [address] [place], [place] [address]OEY KHTEWTEGBL58.2 %NormalProMedica Baypark HospitalComment on above:Performed By: #### CMP, 12041-6, , CBCA #### [facility] ([id number]) [address] [place], [place] [address]GKK (Bld) [#/Vol]9.7 10*3/uLNormal4.0-11.0[facility] HospitalComment on above:Performed By: #### XENIA, 20921-4, , CBCA #### [facility] ([id number]) [address] [place], [place] [address]RHLUIXHSFVHSO METABOLIC PANELon 47-83-2179Qviawai [Mass/Vol]3.8 g/dLNormal3.2-5.3[facility] HospitalComment on above:Performed By: #### XENIA, 79093-2, , CBCA #### [facility] ([id number]) [address] [place], [place] [address]CKQ [Catalytic activity/Vol]80 U/IDxpcof48-732ZsnBtkaeg [facility] HospitalComment on above:Performed By: #### XENIA, 34493-8, , CBCA #### [facility] ([id number]) [address] [place], [place] [address]HAC [Catalytic activity/Vol]49 U/LHigh0-31ProMedOhioHealth Grady Memorial Hospital HospitalComment on above:Performed By: #### XENIA, 86756-6, , CBCA #### [facility] ([id number]) [address] [place], [place] [address]Kjmwg gap [Moles/Vol]11 mmol/LNormal5-15[facility] HospitalComment on above:Performed By: #### CMP, 66889-8, , CBCA #### [facility] ([id number]) [address] [place], [place] [address]YBD [Catalytic activity/Vol]26 U/LNormal0-41ProMediParkwood Hospital HospitalComment on above:Performed By: #### CMP, 14011-4, , CBCA #### [facility] ([id number]) [address] [place], [place] [address]Krztrcldh [Mass/Vol]0.5 mg/dLNormal0.3-1.2PSamaritan HospitalComment on above:Performed By: #### XENIA, 97340-5, 19218-6, CBCA #### [facility] ([id number]) [address] [place], [place] [address]Xtslqvl [Mass/Vol]10.8 mg/dLHigh8.5-10.5PSamaritan HospitalComment on above:Performed By: #### XENIA, 65039-6, , CBCA #### [facility] ([id number]) [address] [place], [place] [address]Fapnpqoo [Moles/Vol]109 mmol/QOdetyi25-718UeqQhlowdWyandot Memorial HospitalComment on above:Performed By: #### XENIA, 04214-4, , CBCA #### [facility] ([id number]) [address] [place], [place] [address]DJ0 [Moles/Vol]20 mmol/PZcn62-45RyaRsqosiSamaritan Hospital Comment on above:Performed By: #### XENIA, 98809-9, , CBCA #### [facility] ([id number]) [address] [place], [place] [address]Vgmmoljxwa [Mass/Vol]1.00 mg/dLNormal0.40-1.00ProWyandot Memorial HospitalComment on above:Result Comment: METHOD TRACEABLE TO IDMS STANDARD Performed By: #### XENIA, 90837-1, , CBCA #### [facility] ([id number]) [address] [place], [place] [address]RDU/1.73 sq M.predicted among non-blacks MDRD (S/P/Bld) [Vol rate/Area]64 mL/min/{1.73_m2}Normal>59ProWyandot Memorial HospitalComment on above:Result Comment: Reported eGFR is based on the CKD-EPI 2020 equation that does not use a race coefficient.Performed By: #### XENIA, 88655-3, , CBCA #### [facility] ([id number]) [address] [place], [place] [address]Nzltlfh [Mass/Vol]144 mg/cPFcih08-52EecIzfedaKettering Health Main Campus Comment on above:Performed By: #### XENIA, 74185-8, 16073-4, CBCA #### [facility] ([id number]) [address] [place], [place] [address]Lxaqodawt [Moles/Vol]3.9 mmol/LNormal3.5-5.0ProWyandot Memorial HospitalComment on above:Performed By: #### XENIA, 82341-3, , CBCA #### [facility] ([id number]) [address] [place], [place] [address]Tbhfgii [Mass/Vol]8.7 g/dLHigh6.0-8.0[facility] Comment on above:Performed By: #### XENIA, 01141-0, , CBCA #### [facility] ([id number]) [address] [place], [place] [address]Tczgss [Moles/Vol]140 mmol/VPdmopo678-062XprJujpev Baypark HospitalComment on above:Performed By: #### XENIA, 47296-5, , CBCA #### [facility] ([id number]) [address] [place], [place] [address]Yesy nitrogen [Mass/Vol]24 mg/dLHigh5-23ProWyandot Memorial HospitalComment on above:Performed By: #### XENIA, 72141-5, , CBCA #### [facility] ([id number]) [address] [place], [place] [address]Saokysy Glucometer (BldC) [Mass/Vol]on 96-49-4021Ztctxnw [Mass/Vol]138 mg/xQZuri95-19JvpVwhbndWyandot Memorial HospitalGlucose [Mass/Vol]175 mg/mNOxfb40-41UhwFflrbvWyandot Memorial HospitalMAGNESIUMon 15-38-6505Rkhyfymmv [Mass/Vol]2.6 mg/dLNormal1.8-2.6ProWyandot Memorial HospitalComment on above: Performed By: #### XENIA, 39050-4, 36224-3, CBCA #### [facility] ([id number]) [address] [place], [place] [address]IXFYYVAFWuv 14-07-6054Lesqwhifp [Moles/Vol]3.9 mmol/LNormal 3.5-5.0ProWyandot Memorial HospitalComment on above:Performed By: #### XENIA, 93780- 0, , CBCA #### [facility] ([id number]) [address] [place], [place] [address]BI CHEST 1 VWon 94-42-0727IJ CHEST 1 VWXR CHEST 1 VW Clinical History: Pneumonia. Portable Upright chest: 04/28/2023 Comparison: 04/23/2023 Findings: A single portable view of the chest was obtained. There is strandy density in the lower lungs with interval improvement. No pneumothorax or definite pleural effusion is a. Mediastinal contours are stable IMPRESSION: Basilar opacities compatible with atelectasis. Finalized by Saurabh Anderson MD on 04/28/2023 9:57 AMNormalProWyandot Memorial HospitalBLOOD CULTUREon 48-45-4923Ivwddyll identified Aer cx Nom (Bld)CULTURE RESULTS NO GROWTH 5 DAYSNormalKettering Health Main CampusBacteria identified Aer cx Nom (Bld)CULTURE RESULTS NO GROWTH 5 DAYSNormalProWyandot Memorial HospitalCBC AND AUTO DIFFon 04-27-2023 ABSOLUTE BASOPHIL0.2 X10E9/LNormal0.0-0.2ProMedica Lake District HospitalComment on above:Performed By: #### XENIA, 96381-8, , CBCA #### [facility] ([id number]) [address] [place], [place] [address]DGAMSHHZ NEUTROPHIL3.9 X10E9/LNormal1.5-6.6ProWyandot Memorial HospitalComment on above:Performed By: #### CMP, 59276-7, , CBCA #### [facility] ([id number]) [address] [place], [place] [address]Qhqbkrmfe/100 WBC (Bld)2.9 %NormalKettering Health Main Campus Comment on above:Performed By: #### CMP, 30992-2, , CBCA #### [facility] ([id number]) [address] [place], [place] [address]Qeerckmiwak (Bld) [#/Vol]0.1 10*3/uLNormal0.0-0.4ProWyandot Memorial HospitalComment on above:Performed By: #### CMP, 88617-5, , CBCA #### [facility] ([id number]) [address] [place], [place] [address]Yzoblqdoqye/100 WBC (Bld)1.7 %NormalKettering Health Main Campus Comment on above:Performed By: #### CMP, 41843-7, , CBCA #### [facility] ([id number]) [address] [place], [place] [address]Zhsrmqroayr distribution width (RBC) [Ratio]17.7 %High11.5-15.0 ProMedicLima City HospitalComment on above:Performed By: #### CMP, 90884-7, , CBCA #### [facility] ([id number]) [address] [place], [place] [address]Guymehhohn (Bld) [Volume fraction]38.8 %Xwdcwd60-78EnvWbqcivWyandot Memorial HospitalComment on above:Performed By: #### CMP, 32939-4, , CBCA #### [facility] ([id number]) [address] [place], [place] [address]Veagybtbby (Bld) [Mass/Vol]12.7 g/ePVrdztm01.7-15.5ProMedica Lake District HospitalComment on above:Performed By: #### CMP, 98289-2, , CBCA #### [facility] ([id number]) [address] [facility] [place], [place] [address]Xyovnkwbuay (Bld) [#/Vol]1.7 10*3/uLNormal1.0-3.5ProMedica Lake District HospitalComment on above:Performed By: #### CMP, 78881-3, , CBCA #### [facility] ([id number]) [address] [place], [place] [address]Bbyvrocophb/100 WBC (Bld)26.3 %NormalProWyandot Memorial Hospital Comment on above:Performed By: #### XENIA, 95104-0, , CBCA #### [facility] ([id number]) [address] [place], [place] [address]CJO (RBC) [Entitic mass]28.2 fmFlvamk78-43DpeAkvtqjWyandot Memorial HospitalComment on above:Performed By: #### XENIA, 38166-0, , CBCA #### [facility] ([id number]) [address] [place], [place] [address]NQCE (RBC) [Mass/Vol]32.7 g/hEDazscr41-59SecQniirkWyandot Memorial HospitalComment on above:Performed By: #### CMP, 29509-5, , CBCA #### [facility] ([id number]) [address] [facility] [place], [place] [address]TJZ (RBC) [Entitic vol]86 gSKmohiw38-234SrdRxpeug [facility]park HospitalComment on above:Performed By: #### CMP, 63330-1, 47292-3, CBCA #### [facility] ([id number]) [address] [facility] [place], [place] [address]Skzbvwled (Bld) [#/Vol]0.7 10*3/uLNormal0-0.9ProWyandot Memorial HospitalComment on above:Performed By: #### CMP, 61881-9, 20965-2, CBCA #### [facility] ([id number]) [address] [place], [place] [address]Lacctypdj/100 WBC (Bld)10.1 %NormalKettering Health Main Campus Comment on above:Performed By: #### CMP, 22014-0, 89281-0, CBCA #### [facility] ([id number]) [address] [place], [place] [address]Zbebmhpmduv/100 WBC (Bld)59.0 %NormalKettering Health Main Campus Comment on above:Performed By: #### CMP, 86309-8, 12708-7, CBCA #### [facility] ([id number]) [address] [place], [place] [address]Wchzktxp mean volume (Bld) [Entitic vol]8.1 fLNormal7-12 ProMProMedica Fostoria Community HospitalComment on above:Performed By: #### XENIA, 69159-5, , CBCA #### [facility] ([id number]) [address] [place], [place] [address]Mcbwgvkxt (Bld) [#/Vol]364 10*3/zCWygyht789-892YxxTrrjsk [facility] HospitalComment on above:Performed By: #### XENIA, 23447-6, , CBCA #### [facility] ([id number]) [address] [place], [place] [address]QKK COUNT4.49 X10E12/LNormal3.80-5.20[facility] Comment on above:Performed By: #### CMP, 72785-3, , CBCA #### [facility] ([id number]) [address] [place], [place] [address]KVW (Bld) [#/Vol]6.6 10*3/uLNormal4.0-11.0K[facility]tering Health Main CampusComment on above:Performed By: #### CMP, 98531-6, 65314-6, CBCA #### [facility] ([id number]) [address] [place], [place] [address]VYXVDYPHFGBSW METABOLIC PANELon 43-96-9445Vlmjrze [Mass/Vol]3.7 g/dLNormal3.2-5.3ProMedOhioHealth Grady Memorial Hospital HospitalComment on above:Performed By: #### XENIA, 27741-1, , CBCA #### [facility] ([id number]) [address] [place], [place] [address]TMP [Catalytic activity/Vol]74 U/RRlneov51-959ZaxNwgvcdWyandot Memorial HospitalComment on above:Performed By: #### XENIA, 01597-6, , CBCA #### [facility] ([id number]) [address] [place], [place] [address]GWM [Catalytic activity/Vol]47 U/LHigh0-31ProMedOhioHealth Grove City Methodist HospitalComment on above:Performed By: #### XENIA, 06518-2, , CBCA #### [facility] ([id number]) [address] [place], [place] [address]Eddjk gap [Moles/Vol]12 mmol/LNormal5-15ProWyandot Memorial HospitalComment on above:Performed By: #### XENIA, 89174-5, , CBCA #### [facility] ([id number]) [address] [place], [place] [address]PWJ [Catalytic activity/Vol]29 U/LNormal0-41ProWyandot Memorial HospitalComment on above:Performed By: #### XENIA, 27655-2, , CBCA #### [facility] ([id number]) [address] [place], [place] [address]Hbzdtynov [Mass/Vol]0.6 mg/dLNormal0.3-1.2PCleveland Clinic Akron General HospitalComment on above:Performed By: #### CMP, 49947-3, , CBCA #### [facility] ([id number]) [address] [place], [place] [address]Nwdrqsn [Mass/Vol]10.3 mg/dLNormal8.5-10.5PCleveland Clinic Akron General HospitalComment on above:Performed By: #### XENIA, 37651-2, , CBCA #### [facility] ([id number]) [address] [place], [place] [address]Eidomwvp [Moles/Vol]108 mmol/XIzkexp92-331CfnNgxyrqWyandot Memorial HospitalComment on above:Performed By: #### XENIA, 00012-8, 81978-1, CBCA #### [facility] ([id number]) [address] [place], [place] [address]LE2 [Moles/Vol]21 mmol/LQuy79-41CaaZkvemeSamaritan Hospital Comment on above:Performed By: #### XENIA, 45960-9, , CBCA #### [facility] ([id number]) [address] [place], [place] [address]Aicrqkuifh [Mass/Vol]1.03 mg/dLHigh0.40-1.00ProWyandot Memorial HospitalComment on above:Result Comment: METHOD TRACEABLE TO IDMS STANDARD Performed By: #### XENIA, 72905-8, , CBCA #### [facility] ([id number]) [address] [place], [place] [address]CKP/1.73 sq M.predicted among non-blacks MDRD (S/P/Bld) [Vol rate/Area]62 mL/min/{1.73_m2}Normal>59ProWyandot Memorial HospitalComment on above:Result Comment: Reported eGFR is based on the CKD-EPI 1 equation that does not use a race coefficient.Performed By: #### XENIA, 27927-7, , CBCA #### [facility] ([id number]) [address] [place], [place] [address]Hxdwxfu [Mass/Vol]121 mg/iPEwqs72-98PvpFksrebWyandot Memorial Hospital Comment on above:Performed By: #### XENIA, 51927-5, , CBCA #### [facility] ([id number]) [address] [place], [place] [address]Ybxsiqslj [Moles/Vol]3.3 mmol/LLow3.5-5.0ProMedica Baypark HospitalComment on above:Performed By: #### XENIA, 44713-6, , CBCA #### [facility] ([id number]) [address] [place], [place] [address]Pnskxgl [Mass/Vol]8.3 g/dLHigh6.0-8.0[facility] Comment on above:Performed By: #### XENIA, 94275-5, , CBCA #### [facility] ([id number]) [address] [place], [place] [address]Ginyjg [Moles/Vol]141 mmol/NKtwxck556-390AybXsftkn [facility] HospitalComment on above:Performed By: #### XENIA, 49639-0, , CBCA #### [facility] ([id number]) [address] [place], [place] [address]Xald nitrogen [Mass/Vol]17 mg/dLNormal5-23ProWyandot Memorial HospitalComment on above:Performed By: #### XENIA, 09337-0, , CBCA #### [facility] ([id number]) [address] [place], [place] [address]Pllgwzg Glucometer (BldC) [Mass/Vol]on 32-33-9376Vmfikpv [Mass/Vol]127 mg/oJSmcj67-56WcbRagvivKettering Health Main CampusGlucose [Mass/Vol]119 mg/sYEteg59-52LskVztwqhWyandot Memorial HospitalGlucose [Mass/Vol]132 mg/xJSlaw35-68 ProMProMedica Fostoria Community HospitalGlucose [Mass/Vol]119 mg/xRSgsc92-59EhiCbnninKettering Health Main CampusMAGNESIUMon 94-06-4330Liwfofbht [Mass/Vol]2.5 mg/dLNormal1.8-2.6 [facility] CampusComment on above:Performed By: #### XENIA, 93797-1, , CBCA #### [facility] ([id number]) [address] [place], [place] [address]CZTHAZCMIgu 32-99-2619Zlgsnhujp [Moles/Vol]3.7 mmol/LNormal 3.5-5.0ProWyandot Memorial HospitalComment on above:Performed By: #### XENIA, 40429- 0, , CBCA #### [facility] ([id number]) [address] [place], [place] [address]MFE AND AUTO DIFFon 46-35-8343PHLEJUXZ BASOPHIL0.1 X10E9/LNormal 0.0-0.2ProMedica Lake District HospitalComment on above:Performed By: #### XENIA, 58492- 0, , CBCA #### [facility] ([id number]) [address] [place], [place] [address]PXDAMJIJ NEUTROPHIL4.2 X10E9/LNormal1.5-6.6ProWyandot Memorial HospitalComment on above:Performed By: #### XENIA, 72420-0, , CBCA #### [facility] ([id number]) [address] [place], [place] [address]Dfxbyztxt/100 WBC (Bld)1.1 %NormalKettering Health Main Campus Comment on above:Performed By: #### XENIA, 59744-3, , CBCA #### [facility] ([id number]) [address] [facility] [facility] [place], [place] [address]Aalcdeclllk (Bld) [#/Vol]0.0 10*3/uLNormal0.0-0.4ProWyandot Memorial HospitalComment on above:Performed By: #### XENIA, 21962-2, , CBCA #### [facility] ([id number]) [address] [place], [place] [address]Nbtkdawsrvl/100 WBC (Bld)0.4 %NormalKettering Health Main Campus Comment on above:Performed By: #### XENIA, 78857-4, , CBCA #### [facility] ([id number]) [address] [place], [place] [address]Xzsgjufdeys distribution width (RBC) [Ratio]17.3 %High11.5-15.0 [facility] HospitalComment on above:Performed By: #### XENIA, 12465-8, , CBCA #### [facility] ([id number]) [address] [place], [place] [address]Jwgcbscxcl (Bld) [Volume fraction]32.3 %Pfi46-25GpzEoxtqrWyandot Memorial HospitalComment on above:Performed By: #### XENIA, 72405-8, , CBCA #### [facility] ([id number]) [address] [place], [place] [address]Itxfilyita (Bld) [Mass/Vol]10.2 g/dLLow11.7-15.5PSamaritan HospitalComment on above:Performed By: #### XENIA, 20379-6, , CBCA #### [facility] ([id number]) [address] [place], [place] [address]Tzsxwtaumit (Bld) [#/Vol]1.7 10*3/uLNormal1.0-3.5PSamaritan HospitalComment on above:Performed By: #### XENIA, 05951-1, , CBCA #### [facility] ([id number]) [address] [place], [place] [address]Xhkobncryly/100 WBC (Bld)25.7 %NormalProWyandot Memorial Hospital Comment on above:Performed By: #### XENIA, 29001-2, , CBCA #### [facility] ([id number]) [address] [place], [place] [address]LJK (RBC) [Entitic mass]27.3 ulTkriti88-98DsrNzyfuiWyandot Memorial HospitalComment on above:Performed By: #### CMP, 14180-0, , CBCA #### [facility] ([id number]) [address] [place], [place] [address]QWAT (RBC) [Mass/Vol]31.6 g/bIPfw82-10JosTvpesx [facility] Comment on above:Performed By: #### CMP, 35047-0, 07849-0, CBCA #### [facility] ([id number]) [address] [place], [place] [address]BKU (RBC) [Entitic vol]86 dXPempbh28-986PvwFnyqvq [facility] HospitalComment on above:Performed By: #### CMP, 91433-9, 46058-6, CBCA #### [facility] ([id number]) [address] [place], [place] [address]Huluixsmn (Bld) [#/Vol]0.6 10*3/uLNormal0-0.9K[facility] Health Main CampusComment on above:Performed By: #### CMP, 60271-3, 56202-0, CBCA #### [facility] ([id number]) [address] [place], [place] [address]Jmhzywrjt/100 WBC (Bld)9.2 %[facility] Comment on above:Performed By: #### CMP, 14211-2, 97801-3, CBCA #### [facility] ([id number]) [address] [place], [place] [address]Skhgosrxfqe/100 WBC (Bld)63.6 %[facility] Comment on above:Performed By: #### CMP, 81608-2, , CBCA #### [facility] ([id number]) [address] [place], [place] [address]Dvwbjsga mean volume (Bld) [Entitic vol]8.4 fLNormal7-12 ProMedicLima City HospitalComment on above:Performed By: #### CMP, 75146-3, 08282-3, CBCA #### [facility] ([id number]) [address] [place], [place] [address]Sxnzkgjlc (Bld) [#/Vol]334 10*3/oOYqdzly078-606JoaEcyiju [facility] HospitalComment on above:Performed By: #### CMP, 17939-6, 87036-6, CBCA #### [facility] ([id number]) [address] [place], [place] [address]LDX COUNT3.74 X10E12/LLow3.80-5.20ProWyandot Memorial Hospital Comment on above:Performed By: #### XENIA, 98450-9, 48479-7, CBCA #### [facility] ([id number]) [address] [place], [place] [address]PIO (Bld) [#/Vol]6.7 10*3/uLNormal4.0-11.0ProWyandot Memorial HospitalComment on above:Performed By: #### XENIA, 19058-0, , CBCA #### [facility] ([id number]) [address] [place], [place] [address]QGTLPXWCCMADX METABOLIC PANELon 48-39-2903Vkaydlo [Mass/Vol]2.9 g/dLLow3.2-5.3ProMedOhioHealth Grove City Methodist HospitalComment on above:Performed By: #### XENIA, 61968-9, , CBCA #### [facility] ([id number]) [address] [place], [place] [address]PUS [Catalytic activity/Vol]55 U/TZyeuel16-957TaiYdgxknWyandot Memorial HospitalComment on above:Performed By: #### XENIA, 93822-8, 15272-8, CBCA #### [facility] ([id number]) [address] [place], [place] [address]NBF [Catalytic activity/Vol]33 U/LHigh0-31PSamaritan HospitalComment on above:Performed By: #### CMP, 15925-8, 13611-8, CBCA #### [facility] ([id number]) [address] [place], [place] [address]Szstf gap [Moles/Vol]5 mmol/LNormal5-15ProWyandot Memorial HospitalComment on above:Performed By: #### CMP, 07246-1, 06372-7, CBCA #### [facility] ([id number]) [address] [place], [place] [address]BQR [Catalytic activity/Vol]21 U/LNormal0-41ProWyandot Memorial HospitalComment on above:Performed By: #### XENIA, 47533-3, , CBCA #### [facility] ([id number]) [address] [place], [place] [address]Jlsnssuha [Mass/Vol]0.6 mg/dLNormal0.3-1.2PSamaritan HospitalComment on above:Performed By: #### XENIA, 76786-8, 76379-7, CBCA #### [facility] ([id number]) [address] [place], [place] [address]Lhwfuft [Mass/Vol]9.3 mg/dLNormal8.5-10.5PSamaritan HospitalComment on above:Performed By: #### XENIA, 58064-6, , CBCA #### [facility] ([id number]) [address] [place], [place] [address]Witkvksq [Moles/Vol]117 mmol/SDqla88-892BigIcbmgjWyandot Memorial HospitalComment on above:Performed By: #### XENIA, 30892-4, , CBCA #### [facility] ([id number]) [address] [place], [place] [address]QF3 [Moles/Vol]20 mmol/POlm51-69SifOghfhiSamaritan Hospital Comment on above:Performed By: #### XENIA, 56387-8, , CBCA #### [facility] ([id number]) [address] [place], [place] [address]Tsozuwhydq [Mass/Vol]0.59 mg/dLNormal0.40-1.00ProWyandot Memorial HospitalComment on above:Result Comment: METHOD TRACEABLE TO IDMS STANDARD Performed By: #### XENIA, 52345-5, , CBCA #### [facility] ([id number]) [address] [place], [place] [address]vSIH (CKD-EPI) NON-RACE DEPENDENT>90Normal>59ProWyandot Memorial HospitalComment on above:Result Comment: Reported eGFR is based on the CKD-EPI 2020 equation that does not use a race coefficient.Performed By: #### XENIA, 36451-8, , CBCA #### [facility] ([id number]) [address] [place], [place] [address]Qjhqapy [Mass/Vol]95 mg/hRYlxuhz33-06FrrSeulcyWyandot Memorial Hospital Comment on above:Performed By: #### XENIA, 25592-1, , CBCA #### [facility] ([id number]) [address] [place], [place] [address]Issdwnfpv [Moles/Vol]3.4 mmol/LLow3.5-5.0ProWyandot Memorial HospitalComment on above:Performed By: #### XENIA, 99121-8, , CBCA #### [facility] ([id number]) [address] [place], [place] [address]Mbvnzvq [Mass/Vol]6.6 g/dLNormal6.0-8.0[facility] CampusComment on above:Performed By: #### XENIA, 83143-4, , CBCA #### [facility] ([id number]) [address] [place], [place] [address]Idnlps [Moles/Vol]142 mmol/RIungqo867-297YexShbkfy [facility] HospitalComment on above:Performed By: #### XENIA, 27473-0, , CBCA #### [facility] ([id number]) [address] [place], [place] [address]Ivyg nitrogen [Mass/Vol]12 mg/dLNormal5-23ProWyandot Memorial HospitalComment on above:Performed By: #### XENIA, 62243-8, , CBCA #### [facility] ([id number]) [address] [place], [place] [address]Gjtwuvb Glucometer (BldC) [Mass/Vol]on 74-32-3421Michemt [Mass/Vol]111 mg/sJUsmp54-38MjwThgvorWyandot Memorial HospitalGlucose [Mass/Vol]118 mg/hFGgvn15-59PyfRwaisf [facility] HospitalGlucose [Mass/Vol]225 mg/vFLxsp23-58 ProMedicLima City HospitalGlucose [Mass/Vol]105 mg/nCPuwc30-20DimOfyqunWyandot Memorial HospitalMAGNESIUMon 29-49-0857Rqmrwnnxj [Mass/Vol]2.2 mg/dLNormal1.8-2.6 ProMProMedica Fostoria Community HospitalComment on above:Performed By: #### XENIA, 13463-3, 36290-0, CBCA #### [facility] ([id number]) [address] [place], [place] [address]TDGVISLULce 08-25-6417Yjftycezn [Moles/Vol]4.0 mmol/LNormal 3.5-5.0ProWyandot Memorial HospitalComment on above:Performed By: #### XENIA, 04068- 0, , CBCA #### [facility] ([id number]) [address] [place], [place] [address]TIZDL METABOLIC PANLon 41-79-0490Htgnz gap [Moles/Vol]6 mmol/L Normal5-15ProWyandot Memorial HospitalComment on above:Performed By: #### XENIA, 38480-8, , CBCA #### [facility] ([id number]) [address] [place], [place] [address]Nuykucx [Mass/Vol]9.6 mg/dLNormal8.5-10.5ProMedica [facility] District HospitalComment on above:Performed By: #### XENIA, 52462-7, , CBCA #### [facility] ([id number]) [address] [place], [place] [address]Tuvllvjt [Moles/Vol]115 mmol/NDkzp27-997IesVnsjdgWyandot Memorial HospitalComment on above:Performed By: #### XENIA, 83766-6, , CBCA #### [facility] ([id number]) [address] [place], [place] [address]TC0 [Moles/Vol]18 mmol/JKnr93-93NktEekxhcSamaritan Hospital Comment on above:Performed By: #### XENIA, 92531-9, , CBCA #### [facility] ([id number]) [address] [place], [place] [address]Bkitmptzea [Mass/Vol]0.56 mg/dLNormal0.40-1.00[facility] CampusComment on above:Result Comment: METHOD TRACEABLE TO IDMS STANDARD Performed By: #### XENIA, 57355-2, 78835-5, CBCA #### [facility] ([id number]) [address] [place], [place] [address]dEFU (CKD-EPI) NON-RACE DEPENDENT>90Normal>59ProWyandot Memorial HospitalComment on above:Result Comment: Reported eGFR is based on the CKD-EPI 2020 equation that does not use a race coefficient.Performed By: #### XENIA, 66672-1, , CBCA #### [facility] ([id number]) [address] [place], [place] [address]Feanmbi [Mass/Vol]86 mg/xWLkskmr85-29VyzIuxrxfKettering Health Main Campus Comment on above:Performed By: #### XENIA, 08973-6, , CBCA #### [facility] ([id number]) [address] [place], [place] [address]Ogqqipqmk [Moles/Vol]3.5 mmol/LNormal3.5-5.0[facility] CampusComment on above:Performed By: #### XENIA, 66861-8, 97358-3, CBCA #### [facility] ([id number]) [address] [place], [place] [address]Bcazta [Moles/Vol]139 mmol/FImoewe606-712ZwfXkjxbo [facility] HospitalComment on above:Performed By: #### XENIA, 19216-5, 55292-3, CBCA #### [facility] ([id number]) [address] [place], [place] [address]Dwsy nitrogen [Mass/Vol]14 mg/dLNormal5-23ProWyandot Memorial HospitalComment on above:Performed By: #### XENIA, 00647-3, 81552-4, CBCA #### [facility] ([id number]) [address] [place], [place] [address]TKPORYTB BLOOD COUNTon 88-43-3632Wigxssyszje distribution width (RBC) [Ratio]18.1 %High11.5-15.0ProWyandot Memorial HospitalComment on above: Performed By: #### XENIA, 29302-1, , CBCA #### [facility] ([id number]) [address] [place], [place] [address]Zfvhfnqolz (Bld) [Volume fraction]32.2 %Cwq54-01PwvUndqgcWyandot Memorial HospitalComment on above:Performed By: #### XENIA, 66123-0, , CBCA #### [facility] ([id number]) [address] [place], [place] [address]Wtwawuinvj (Bld) [Mass/Vol]10.1 g/dLLow11.7-15.5PO[facility] Centerica [facility] District HospitalComment on above:Performed By: #### XENIA, 38289-6, , CBCA #### [facility] ([id number]) [address] [place], [place] [address]CAW (RBC) [Entitic mass]27.4 ruSgwoga34-92DcyKwhmpqWyandot Memorial HospitalComment on above:Performed By: #### XENIA, 31090-4, 83046-2, CBCA #### [facility] ([id number]) [address] [place], [place] [address]UMUF (RBC) [Mass/Vol]31.5 g/qUPwo53-75LwxLlsbnjWyandot Memorial Hospital Comment on above:Performed By: #### XENIA, 39748-2, 62648-5, CBCA #### [facility] ([id number]) [address] [place] [address]KHZ (RBC) [Entitic vol]87 lLIahiiy39-089JssHdvpst Baypark HospitalComment on above:Performed By: #### XENIA, 02918-8, 44010-8, CBCA #### [facility] ([id number]) [address] [place], [place] [address]Ejvwimwy mean volume (Bld) [Entitic vol]8.7 fLNormal7-12 ProMProMedica Fostoria Community HospitalComment on above:Performed By: #### XENIA, 50537-0, 02115-5, CBCA #### [facility] ([id number]) [address] [place], [place] [address]Ewnqqznay (Bld) [#/Vol]343 10*3/nPAmrhsx804-256RrcRmmguy [facility] HospitalComment on above:Performed By: #### XENIA, 66205-5, , CBCA #### [facility] ([id number]) [address] [place], [place] [address]QTV COUNT3.70 X10E12/LLow3.80-5.20[facility] Comment on above:Performed By: #### XENIA, 20324-7, , CBCA #### [facility] ([id number]) [address] [place], [place] [address]LVQ (Bld) [#/Vol]7.6 10*3/uLNormal4.0-11.0[facility] CampusComment on above:Performed By: #### XENIA, 60794-4, , CBCA #### [facility] ([id number]) [address] [place], [place] [address]Tccpvjz Glucometer (BldC) [Mass/Vol]on 38-10-1667Uyrkcsr [Mass/Vol]160 mg/dWLatn61-21AyeQdhrfoKettering Health Main CampusGlucose [Mass/Vol]126 mg/mNDcjc64-82IbxWxfvliKettering Health Main CampusGlucose [Mass/Vol]128 mg/bKKlgx77-00 ProMProMedica Fostoria Community HospitalGlucose [Mass/Vol]158 mg/bAHwrf28-21VyuKndsknWyandot Memorial HospitalGlucose [Mass/Vol]82 mg/oKWujvfe61-15CzsDvezmcWyandot Memorial HospitalGlucose [Mass/Vol]93 mg/wFTphmzf22-75VmdOttldaWyandot Memorial HospitalMAGNESIUMon 04-25-2023 Magnesium [Mass/Vol]2.1 mg/dLNormal1.8-2.6ProWyandot Memorial HospitalComment on above:Performed By: #### XENIA, 78186-0, 50690-6, CBCA #### [facility] ([id number]) [address] [place], [place] [address]VWBCAIQKMNjn 87-86-1013Llmyjejyz [Mass/Vol]3.2 mg/dLNormal 2.4-4.9ProWyandot Memorial HospitalComment on above:Performed By: #### XENIA, 43135- 0, , CBCA #### [facility] ([id number]) [address] [place], [place] [address]ACMOHXRZKby 65-36-3650Ourokkwdd [Moles/Vol]3.7 mmol/LNormal 3.5-5.0ProWyandot Memorial HospitalComment on above:Performed By: #### XENIA, 43726- 0, , CBCA #### [facility] ([id number]) [address] [place], [place] [address]Yzmbmneblq trough [Mass/Vol]on 70-22-3708GWOQDZLSSV DTFABD11.7 ug/mLHigh5.0-20.0[facility] CampusComment on above:Performed By: #### XENIA, 09269-2, 32917-5, CBCA #### [facility] ([id number]) [address] [place], [place] [address]pshfCCRnkis [Mass/Vol]on 85-60-0261UUKDHFGPWXF<0.5Low1.0-13.0 ProMProMedica Fostoria Community HospitalComment on above:Result Comment: NOTE This test was developed and its performance characteristics determined by [facility] Pathology and Laboratory Medicine [place] ([facility]). It has not been cleared or approved by the FDA. [facility] is regulated under CLIA as qualified to perform high-complexity testing. This test is used for clinical purposes. It should not be regarded as investigational or for research. Test Performed By: [place] [address] [employer] Intelligence Officer: Davian Holloway III, M.D. CLIA #[id number] By: #### XENIA, 18340-5, , CBCA #### [facility] ([id number]) [address] [facility] [place], [place] [address]GYTDG METABOLIC PANLon 44-80-3642Vcgld gap [Moles/Vol]9 mmol/L Normal5-15ProWyandot Memorial HospitalComment on above:Performed By: #### XENIA, 32954-4, , CBCA #### [facility] ([id number]) [address] [place], [place] [address]Atdyagt [Mass/Vol]9.9 mg/dLNormal8.5-10.5PSamaritan HospitalComment on above:Performed By: #### XENIA, 98261-4, , CBCA #### [facility] ([id number]) [address] [place], [place] [address]Xmntawoy [Moles/Vol]112 mmol/AMmvi09-972YxaBlroxrWyandot Memorial HospitalComment on above:Performed By: #### XENIA, 51043-9, , CBCA #### [facility] ([id number]) [address] [place], [place] [address]TL7 [Moles/Vol]17 mmol/GCya85-89JigZrkbnrSamaritan Hospital Comment on above:Performed By: #### XENIA, 06598-2, 23971-0, CBCA #### [facility] ([id number]) [address] [place], [place] [address]Badtzppmuy [Mass/Vol]0.68 mg/dLNormal0.40-1.00ProWyandot Memorial HospitalComment on above:Result Comment: METHOD TRACEABLE TO IDMS STANDARD Performed By: #### XENIA, 68174-1, 02749-4, CBCA #### [facility] ([id number]) [address] [place], [place] [address]eZSI (CKD-EPI) NON-RACE DEPENDENT>90Normal>59ProWyandot Memorial HospitalComment on above:Result Comment: Reported eGFR is based on the CKD-EPI 2020 equation that does not use a race coefficient.Performed By: #### XENIA, 59203-0, , CBCA #### [facility] ([id number]) [address] [place], [place] [address]Hlikvqt [Mass/Vol]134 mg/xQWsxb83-22GueNcnjlfKettering Health Main Campus Comment on above:Performed By: #### XENIA, 36437-6, 33477-8, CBCA #### [facility] ([id number]) [address] [place], [place] [address]Vtkaergdj [Moles/Vol]4.2 mmol/LNormal3.5-5.0ProWyandot Memorial HospitalComment on above:Performed By: #### XENIA, 34145-7, , CBCA #### [facility] ([id number]) [address] [place], [place] [address]Wolfrc [Moles/Vol]138 mmol/OCqjqdk027-908HopRnsqph [facility]park HospitalComment on above:Performed By: #### XENIA, 76716-5, , CBCA #### [facility] ([id number]) [address] [place], [place] [address]Wsip nitrogen [Mass/Vol]15 mg/dLNormal5-23ProWyandot Memorial HospitalComment on above:Performed By: #### XENIA, 96288-4, , CBCA #### [facility] ([id number]) [address] [place], [place] [address]IQL AND AUTO DIFFon 47-68-0367TOVCAZJZ BASOPHIL0.1 X10E9/LNormal 0.0-0.2ProMedica Lake District HospitalComment on above:Performed By: #### CMP, 21942- 0, , CBCA #### [facility] ([id number]) [address] [place], [place] [address]NFQNKHBV NEUTROPHIL5.1 X10E9/LNormal1.5-6.6ProWyandot Memorial HospitalComment on above:Performed By: #### CMP, 95427-2, , CBCA #### [facility] ([id number]) [address] [place], [place] [address]Mnrzufarr/100 WBC (Bld)1.0 %NormalKettering Health Main Campus Comment on above:Performed By: #### XENIA, 63390-8, , CBCA #### [facility] ([id number]) [address] [place], [place] [address]Uvmzjvrwlvg (Bld) [#/Vol]0.0 10*3/uLNormal0.0-0.4ProWyandot Memorial HospitalComment on above:Performed By: #### CMP, 80714-9, , CBCA #### [facility] ([id number]) [address] [place], [place] [address]Afzvpexxfka/100 WBC (Bld)0.5 %NormalKettering Health Main Campus Comment on above:Performed By: #### XENIA, 03694-0, , CBCA #### [facility] ([id number]) [address] [place], [place] [address]Vgbdtzozlir distribution width (RBC) [Ratio]17.4 %High11.5-15.0 [facility] District HospitalComment on above:Performed By: #### CMP, 11552-0, , CBCA #### [facility] ([id number]) [address] [place], [place] [address]Reckowmsii (Bld) [Volume fraction]31.9 %Ghc67-37CxbUreznyWyandot Memorial HospitalComment on above:Performed By: #### CMP, 35938-8, , CBCA #### [facility] ([id number]) [address] [place], [place] [address]Gggeihwfko (Bld) [Mass/Vol]9.8 g/dLLow11.7-15.5PSamaritan HospitalComment on above:Performed By: #### CMP, 93502-1, 83147-7, CBCA #### [facility] ([id number]) [address] [place], [place] [address]Aqspuvdcqkg (Bld) [#/Vol]2.5 10*3/uLNormal1.0-3.5PSamaritan HospitalComment on above:Performed By: #### CMP, 38201-8, , CBCA #### [facility] ([id number]) [address] [place] [place], [place] [address]Prlijennafq/100 WBC (Bld)28.0 %NormalKettering Health Main Campus Comment on above:Performed By: #### CMP, 73568-9, , CBCA #### [facility] ([id number]) [address] [place], [place] [address]VTD (RBC) [Entitic mass]27.0 rzBuswpz14-41XadKhjsvfKettering Health Main CampusComment on above:Performed By: #### CMP, 94557-6, , CBCA #### [facility] ([id number]) [address] [place], [place] [address]RIKP (RBC) [Mass/Vol]30.8 g/uEJjr63-03BrzXjdwrvKettering Health Main Campus Comment on above:Performed By: #### CMP, 22007-5, , CBCA #### [facility] ([id number]) [address] [place], [place] [address]GDS (RBC) [Entitic vol]88 qZGcgpcr18-978ExmAmjuxd [facility] HospitalComment on above:Performed By: #### CMP, 09883-5, 36557-5, CBCA #### [facility] ([id number]) [address] [place], [place] [address]Nknqdvhbw (Bld) [#/Vol]1.1 10*3/uLHigh0-0.9K[facility]tering Health Main CampusComment on above:Performed By: #### CMP, 30552-8, 34359-4, CBCA #### [facility] ([id number]) [address] [place], [place] [address]Lsnivtigf/100 WBC (Bld)12.1 %NormalKettering Health Main Campus Comment on above:Performed By: #### CMP, 12822-9, 28489-5, CBCA #### [facility] ([id number]) [address] [place], [place] [address]Srqdusfqtmj/100 WBC (Bld)58.4 %[facility] Comment on above:Performed By: #### CMP, 89516-1, 40505-7, CBCA #### [facility] ([id number]) [address] [place], [place] [address]Msusntsz mean volume (Bld) [Entitic vol]7.8 fLNormal7-12 [facility] Main CampusComment on above:Performed By: #### CMP, 69896-1, , CBCA #### [facility] ([id number]) [address] [place], [place] [address]Lqtvvamps (Bld) [#/Vol]322 10*3/gUWqvzxy403-517AjwAenltd [facility] HospitalComment on above:Performed By: #### CMP, 90209-7, , CBCA #### [facility] ([id number]) [address] [place], [place] [address]PNY COUNT3.64 X10E12/LLow3.80-5.20[facility] Comment on above:Performed By: #### CMP, 46948-9, 51439-2, CBCA #### [facility] ([id number]) [address] [place], [place] [address]COU (Bld) [#/Vol]8.8 10*3/uLNormal4.0-11.0ProGeorgetown Behavioral Hospital HospitalComment on above:Performed By: #### XENIA, 92600-6, , CBCA #### [facility] ([id number]) [address] [place], [place] [address]URTTXKBGWJCHO METABOLIC PANELon 87-42-8764Crxqcna [Mass/Vol]2.9 g/dLLow3.2-5.3ProMedOhioHealth Grady Memorial Hospital HospitalComment on above:Performed By: #### XENIA, 95531-4, , CBCA #### [facility] ([id number]) [address] [place], [place] [address]ZJL [Catalytic activity/Vol]52 U/TSmhdgl77-525HvmZhovqmWyandot Memorial HospitalComment on above:Performed By: #### XENIA, 30209-2, , CBCA #### [facility] ([id number]) [address] [place], [place] [address]TAF [Catalytic activity/Vol]21 U/LNormal0-31PSamaritan HospitalComment on above:Performed By: #### XENIA, 85475-7, , CBCA #### [facility] ([id number]) [address] [place], [place] [address]Nupdx gap [Moles/Vol]8 mmol/LNormal5-15ProWyandot Memorial HospitalComment on above:Performed By: #### XENIA, 35802-6, , CBCA #### [facility] ([id number]) [address] [place], [place] [address]EPS [Catalytic activity/Vol]22 U/LNormal0-41ProGeorgetown Behavioral Hospital HospitalComment on above:Performed By: #### XENIA, 56078-7, , CBCA #### [facility] ([id number]) [address] [place], [place] [address]Syqdsdssn [Mass/Vol]0.8 mg/dLNormal0.3-1.2PCleveland Clinic Akron General HospitalComment on above:Performed By: #### CMP, 11046-4, , CBCA #### [facility] ([id number]) [address] [place], [place] [address]Liutgfg [Mass/Vol]9.4 mg/dLNormal8.5-10.5PSamaritan HospitalComment on above:Performed By: #### CMP, 99483-9, , CBCA #### [facility] ([id number]) [address] [place], [place] [address]Jntahkwx [Moles/Vol]117 mmol/WFwqv49-024DjnFfdqglWyandot Memorial HospitalComment on above:Performed By: #### XENIA, 20086-2, , CBCA #### [facility] ([id number]) [address] [place], [place] [address]EN2 [Moles/Vol]18 mmol/WWxe12-20EczAeidonSamaritan Hospital Comment on above:Performed By: #### XENIA, 39345-9, , CBCA #### [facility] ([id number]) [address] [place], [place] [address]Wjuuhvzdbk [Mass/Vol]0.59 mg/dLNormal0.40-1.00ProWyandot Memorial HospitalComment on above:Result Comment: METHOD TRACEABLE TO IDMS STANDARD Performed By: #### XENIA, 30637-7, , CBCA #### [facility] ([id number]) [address] [place], [place] [address]Lafutdi [Mass/Vol]90 mg/kHTwcqlj85-50SwqKrgtnxKettering Health Main Campus Comment on above:Performed By: #### [facility], 53471-8, , CBCA #### [facility] ([id number]) [address] [place], [place] [address]Ripoyjnzf [Moles/Vol]3.6 mmol/LNormal3.5-5.0ProWyandot Memorial HospitalComment on above:Performed By: #### XENIA, 77365-3, , CBCA #### [facility] ([id number]) [address] [place], [place] [address]Erwgnup [Mass/Vol]6.9 g/dLNormal6.0-8.0ProWyandot Memorial HospitalComment on above:Performed By: #### XENIA, 57557-8, , CBCA #### [facility] ([id number]) [address] [place], [place] [address]Xjfwvy [Moles/Vol]143 mmol/MYnhuww369-772JwsVyauks [facility] HospitalComment on above:Performed By: #### XENIA, 06862-1, , CBCA #### [facility] ([id number]) [address] [place], [place] [address]Uvkzawg.ionized (Bld) [Moles/Vol]on 75-45-9142BZWWGOAF ICA5.5 mg/dLHigh4.5-5.3ProMedOhioHealth Grove City Methodist HospitalComment on above:Performed By: #### XENIA, 56737-3, , CBCA #### [facility] ([id number]) [address] [place], [place] [address]Gsyzujj Glucometer (BldC) [Mass/Vol]on 40-64-1459Hzsxtwp [Mass/Vol]87 mg/qRGmytzw22-52QisVkfwuvWyandot Memorial HospitalGlucose [Mass/Vol]82 mg/nGTjqwxv99-12AmdKhlzrsWyandot Memorial HospitalGlucose [Mass/Vol]90 mg/jHXizffm78-41 [facility] HospitalMAGNESIUMon 15-99-5443Lsmswpgmm [Mass/Vol]2.0 mg/dL Normal1.8-2.6ProWyandot Memorial HospitalComment on above:Performed By: #### XENIA, 89372-6, , CBCA #### [facility] ([id number]) [address] [place], [place] [address]HIYZXTYHIMig 25-75-4863Cbjtswouc [Mass/Vol]3.4 mg/dLNormal 2.4-4.9ProMedica [facility]park HospitalComment on above:Performed By: #### XENIA, 53940- 0, , CBCA #### [facility] ([id number]) [address] [place], [place] [address]ATDYVPNVPnd 73-46-0533Xrgpexlpz [Moles/Vol]3.5 mmol/LNormal 3.5-5.0ProGe[facility]al [facility] HospitalComment on above:Performed By: #### XENIA, 02241- 0, , CBCA #### [facility] ([id number]) [address] [place], [place] [address]Wtjoxeoth [Moles/Vol]3.7 mmol/LNormal3.5-5.0ProGe[facility] HospitalComment on above:Performed By: #### XENIA, 56589-2, , CBCA #### [facility] ([id number]) [address] [place], [place] [address]DMGFWOSS BLOOD GASon 62-51-5983LVMOU'S TESTPassNormalProGeorgetown Behavioral Hospital HospitalComment on above:Performed By: #### ABG ####[facility] ([id number])[address] [place], [place] [address]WPMB,DEFICIT4.0 MMOL/LHigh 0.0-2.0ProGe[facility]al Hospital HospitalComment on above:Performed By: #### ABG ####[facility] ([id number])[address] [place], [place] [address]Odid sosfwpheudm99.6 [degF]Poruul73.0ProGeorgetown [facility]al Hospital HospitalComment on above: Performed By: #### ABG ####[facility] ([id number])[address] [place], [place] [address]KMB2 (Bld) [Moles/Vol]21.0 mmol/QJjv46-56WelUszxed [facility] HospitalComment on above:Performed By: #### ABG ####[facility] ([id number])[address] [place], [place] [address]QWSW. O2 CONC.40 %NormalProMedica Baypark HospitalComment on above:Performed By: #### ABG ####[facility] ([id number])[address] [place], [place] [address]Jcxhgh (Bld) [Partial pressure]76 mm[Hg]Odx63-520TetPzjpxfWyandot Memorial HospitalComment on above:Performed By: #### ABG ####[facility] ([id number])[address] [place], [place] [address]Vyrifo saturation in Blood95.0 %Normal>90ProWyandot Memorial Hospital Comment on above:Performed By: #### ABG ####[facility] ([id number])[address] [place] [address]HAOOIF SOURCEVentNormSouthern Ohio Medical CenterComment on above:Performed By: #### ABG ####[facility] ([id number])[address] [place] [address]JZO524.0 YMVYDdfcto05-45 [facility] HospitalComment on above:Performed By: #### ABG ####[facility] ([id number])[address] [place], [place] [address]tG (Bld)7.362 [pH]Normal7.350-7.450ProWyandot Memorial HospitalComment on above:Performed By: #### ABG ####[facility] ([id number])[address] [place] [address]WQYFJY SITERBrachNormSouthern Ohio Medical CenterComment on above:Performed By: #### ABG ####[facility] ([id number])[address] [place] [address]XSYMJC TYPEARTERIALNormalKettering Health Main CampusComment on above:Performed By: #### ABG ####[facility] ([id number])[address] [place] [address]ODRCU CULTUREon 85-75-2453Jzzbthcg identified Aer cx Nom (Bld)CULTURE RESULTS NO GROWTH 5 DAYSNormalKettering Health Main CampusBacteria identified Aer cx Nom (Bld)CULTURE RESULTS NO GROWTH 5 DAYSNormalProWyandot Memorial HospitalCBC AND AUTO DIFFon 04-23-2023 ABSOLUTE BASOPHIL0.0 X10E9/LNormal0.0-0.2ProMedOhioHealth Grove City Methodist HospitalComment on above:Performed By: #### 10420-5, , 1987-08, 2275-07, CMP, CBCA ####[facility] ([id number])[address] [place], [place] [address]ETXYVZSY NEUTROPHIL4.8 X10E9/LNormal1.5-6.6ProWyandot Memorial HospitalComment on above: Performed By: #### 86228-8, , 1987-08, 2275-07, CMP, CBCA ####[facility] ([id number])[address] [place], [place] [address]Mgzmvqbfe/100 WBC (Bld)0.5 %NormalProWyandot Memorial HospitalComment on above:Performed By: #### 69156-6, , 1987-08, 2275-07, CMP, CBCA ####[facility] ([id number])[address] [place], [place] [address]Dcfonoffgof (Bld) [#/Vol]0.1 10*3/uL Normal0.0-0.4Kettering Health Main CampusComment on above:Performed By: #### 54426-9, , 1987-08, 2275-07, CMP, CBCA ####[facility] ([id number])[address] [place], [place] [address]Mxwjnaufepf/100 WBC (Bld)0.8 %Normal ProMProMedica Fostoria Community HospitalComment on above:Performed By: #### 23482-1, , 1987-08, 2275-07, CMP, CBCA ####[facility] ([id number])[address] [place], [place] [address]Ljzfjfppudk distribution width (RBC) [Ratio]19.7 %High 11.5-15.0ProWyandot Memorial HospitalComment on above:Performed By: #### 87074-1, , 1987-08, 2275-07, CMP, CBCA ####[facility] ([facility] 90548)[address] [place], [place] [address]Nxdmshacjr (Bld) [Volume fraction]32.6 % Sbt14-00XheEkewhd Lake District HospitalComment on above:Performed By: #### 79800-5, , 1987-08, 2275-07, CMP, CBCA ####[facility] ([facility] 69230)[address] [place], [place] [address]Hnrysojcxx (Bld) [Mass/Vol]10.4 g/dLLow 11.7-15.5ProMedOhioHealth Grove City Methodist HospitalComment on above:Performed By: #### 87878-7, , 1987-08, 2275-07, CMP, CBCA ####[facility] ([facility] 64554)[address] [place], [place] [address]Bydakfyhwwg (Bld) [#/Vol]1.5 10*3/uLNormal 1.0-3.5PSamaritan HospitalComment on above:Performed By: #### 85410-1, , 1987-08, 2275-07, CMP, CBCA ####[facility] ([facility] 26866)[address] [place], [place] [address]Hgsfjnxoltb/100 WBC (Bld)20.9 %Normal [facility] HospitalComment on above:Performed By: #### 85297-9, , 1987-08, 2275-07, CMP, CBCA ####[facility] ([id number])[address] [place], [place] [address]TAM (RBC) [Entitic mass]27.2 gbTdozgz07-28HmtFvmkwtWyandot Memorial HospitalComment on above:Performed By: #### 71181-3, , 1987-08, 2275-07, CMP, CBCA ####[facility] ([id number])[address] [place], [place] [address]SKUJ (RBC) [Mass/Vol]31.7 g/gXQcn69-88IxlLywxoa [facility] HospitalComment on above:Performed By: #### 13589-7, , 1987-08, 2275-07, CMP, CBCA ####[facility] ([id number])[address] [place], [place] [address]GZQ (RBC) [Entitic vol]86 pMQoetcy49-168XemUtztxj [facility] HospitalComment on above:Performed By: #### 32995-1, , 1987-08, 2275-07, CMP, CBCA ####[facility] ([id number])[address] [place], [place] [address]Cynebcugm (Bld) [#/Vol]0.7 10*3/uLNormal0-0.9ProWyandot Memorial HospitalComment on above: Performed By: #### 04652-2, , 1987-08, 2275-07, CMP, CBCA ####[facility] ([id number])[address] [place], [place] [address]Mxgdreehe/100 WBC (Bld)10.2 %NormalProGeorgetown Behavioral Hospital HospitalComment on above:Performed By: #### 85006-4, , 1987-08, 2275-07, CMP, CBCA ####[facility] ([id number])[address] [place], [place] [address]Kqtcurntxib/100 WBC (Bld)67.6 % NormalProGeorgetown Behavioral Hospital HospitalComment on above:Performed By: #### 37748-9, 0, 1987-08, 2275-07, CMP, CBCA ####[facility] ([id number])[address] [place], [place] [address]Xbtshnva mean volume (Bld) [Entitic vol] 8.1 fLNormal7-12[facility] HospitalComment on above:Performed By: #### 78004-1, , 1987-08, 2275-07, CMP, CBCA ####[facility] ([id number])[address] [place], [place] [address]Ivqzpsatv (Bld) [#/Vol]362 10*3/uL Qbborq716-658AzwPmybqrWyandot Memorial HospitalComment on above:Performed By: #### 31976-9, , 1987-08, 2275-07, CMP, CBCA ####[facility] ([id number])[address] [place], [place] [address]LZW COUNT3.81 X10E12/LNormal 3.80-5.20ProWyandot Memorial HospitalComment on above:Performed By: #### 88699-7, , 1987-08, 2275-07, CMP, CBCA ####[facility] ([id number])[address] [place], [place] [address]SLA morphology finding Nom (Bld)NORMAL NormalProWyandot Memorial HospitalComment on above:Performed By: #### 34648-9, , 1987-08, 2275-07, CMP, CBCA ####[facility] ([id number])[address] [place], [place] [address]EZZ (Bld) [#/Vol]7.1 10*3/uLNormal4.0-11.0 [facility] HospitalComment on above:Performed By: #### 15858-3, , 1987-08, 2275-07, CMP, CBCA ####[facility] ([id number])[address] [place], [place] [address]MPJFYRLTNFCNS METABOLIC PANELon 89-67-3733Pgfqjxd [Mass/Vol]3.0 g/dLLow3.2-5.3[facility] HospitalComment on above:Performed By: #### 19516-6, , 1987-08, 2275-07, CMP, CBCA ####[facility] ([id number])[address] [place], [place] [address]LGN [Catalytic activity/Vol]62 U/EQznvrw02-289XlsMwsjexWyandot Memorial HospitalComment on above: Performed By: #### 11121-9, 0, 1987-08, 2275-07, CMP, CBCA ####[facility] ([id number])[address] [facility] [place], [place] [address]QQM [Catalytic activity/Vol]18 U/LNormal0-31ProMedOhioHealth Grove City Methodist HospitalComment on above: Performed By: #### 37446-9, , 1987-08, 2275-07, CMP, CBCA ####[facility] ([id number])[address] [place], [place] [address]Kcivd gap [Moles/Vol]5 mmol/LNormal5-15ProWyandot Memorial HospitalComment on above: Performed By: #### 12754-9, , 1987-08, 2275-07, CMP, CBCA ####[facility] ([id number])[address] [facility] [facility] [place], [place] [address]WYG [Catalytic activity/Vol]18 U/LNormal0-41ProWyandot Memorial HospitalComment on above: Performed By: #### 45069-1, , 1987-08, 2275-07, CMP, CBCA ####[facility] ([id number])[address] [place], [place] [address]Bgxblumsk [Mass/Vol]0.6 mg/dLNormal0.3-1.2PCleveland Clinic Akron General HospitalComment on above: Performed By: #### 53830-5, , 1987-08, 2275-07, CMP, CBCA ####[facility] ([id number])[address] [place], [place] [address]Bkvnxpa [Mass/Vol]9.8 mg/dLNormal8.5-10.5PCleveland Clinic Akron General HospitalComment on above: Performed By: #### 26998-7, 0, 1987-08, 2275-07, CMP, CBCA ####[facility] ([id number])[address] [place], [place] [address]Yyhvpbae [Moles/Vol]118 mmol/RWwau40-202SqkRlemjdWyandot Memorial HospitalComment on above: Performed By: #### 31142-3, , 1987-08, 2275-07, XENIA, CBCA ####[facility] ([id number])[address] [place], [place] [address]BF8 [Moles/Vol]23 mmol/DCfanjk29-26XoqGfimdq [facility]park HospitalComment on above:Performed By: #### 49326-3, , 1987-08, 2275-07, XENIA, CBCA ####[facility] ([id number])[address] [place], [place] [address]Gozlzwxirr [Mass/Vol]0.69 mg/dL Normal0.40-1.00ProWyandot Memorial HospitalComment on above:Result Comment: METHOD TRACEABLE TO IDMS STANDARDPerformed By: #### 13748-3, , 1987-08, 2275-07, XENIA, CBCMindi ####[facility] ([id number])[address] [place], [place] [address]kALN (CKD-EPI) NON-RACE DEPENDENT>90Normal>59[facility] Comment on above:Result Comment: Reported eGFR is based on the CKD-EPI 2020 equation that does not use a race coefficient.Performed By: #### 16105-1, , 1987-08, 2275-07, XENIA, ANNA ####[facility] ([id number])[address] [place], [place] [address]Qtehlrd [Mass/Vol]134 mg/hPLpik44-40WnoYteccaWyandot Memorial HospitalComment on above:Performed By: #### 91815-5, , 1987-08, 2275-07, XENIA, CBCA ####[facility] ([id number])[address] [place], [place] [address]Xzuaziqoc [Moles/Vol]3.4 mmol/LLow3.5-5.0ProWyandot Memorial HospitalComment on above: Performed By: #### 13986-1, , 1987-08, 2275-07, CMP, CBCA ####[facility] ([id number])[address] [place] [address]Cpfpgpy [Mass/Vol]7.4 g/dLNormal6.0-8.0ProWyandot Memorial HospitalComment on above: Performed By: #### 58885-2, , 1987-08, 2275-07, CMP, CBCA ####[facility] ([id number])[address] [place], [place] [address]Sftjij [Moles/Vol]146 mmol/GGyydso363-450KhdNgqkta [facility] HospitalComment on above: Performed By: #### 32973-4, , 1987-08, 2275-07, CMP, CBCA ####[facility] ([id number])[address] [facility] [place] [address]Odvm nitrogen [Mass/Vol]20 mg/dLNormal5-23ProWyandot Memorial HospitalComment on above:Performed By: #### 13245-8, , 1987-08, 2275-07, CMP, CBCA ####[facility] ([id number])[address] [facility] [place] [address]STQ [Mass/Vol]on 04-23-2023 C REACTIVE PROTEIN3.4 mg/dLHigh0.000-0.744PSamaritan HospitalComment on above:Performed By: #### 73181-6, , 1987-08, 2275-07, CMP, CBCA ####[facility] ([id number])[address] [facility], [place] [address]YVAYYJGGce 66-87-8238Yqovkrvv [Mass/Vol]41 ng/bUAzmntd98-413TioBjnhzq [facility] Comment on above:Performed By: #### 09422-5, 0, 1987-08, 2275-07, CMP, CBCA ####[facility] ([id number])[address] [place] [address] Fibrin D-dimer DDU (PPP) [Mass/Vol]on 3D RBGIF757 ng/mL DDUHigh<255 [facility] Main CampusComment on above:Result Comment: Results >=255ng/mL DDU: Results may be indicative of the presence of VTE. The use of the Wells score and further diagnostic tests should be considered. Elevated D-Dimer levels can also be associated with DIC, neoplasm, , trauma and liver disease. Elevated levels of rheumatoid factor may lead to an overestimation of the D-Dimer level.Performed By: #### 80383-0, , 1987-08, 2275-07, CMP, CBCA ####[facility] ([id number])2801 [place], [place] [address]Mtwtine Glucometer (BldC) [Mass/Vol]on 08-66-3576Fnfaohk [Mass/Vol]129 mg/rFVqqz60-14XfyNqexop [facility] HospitalGlucose [Mass/Vol]96 mg/dL Wotbqn53-79PtaKubftfWyandot Memorial HospitalGlucose [Mass/Vol]136 mg/pKPvdp67-14 ProMProMedica Fostoria Community HospitalGlucose [Mass/Vol]127 mg/dDLzke39-95BcoOjbvge [facility] HospitalGlucose [Mass/Vol]115 mg/nIHsea80-46XvdKmurcdKettering Health Main CampusLDH [Catalytic activity/Vol]on 43-07-3055UID348 U/PCcfxee744-720TfgNewlauKettering Health Main CampusComment on above:Performed By: #### 35911-7, , 1987-08, 2275-07, CMP, CBCA ####[facility] ([id number])28[address] [place], [place] [address]WCFLR RESPIRATORY CULTUREon 65-44-0944Exdxvrto identified Respiratory culture Nom (Sput)GRAM STAIN 10 [...] PIPERACIL/TAZOBACTAM S 16 F TOBRAMYCIN S <=1 FSusceptibleProWyandot Memorial HospitalComment on above: Performed By: #### XENIA, 60602-6, 55807-5, CBCA #### [facility] ([id number]) [address] [facility] [place], [place] [address]DCEHKVSDHzf 88-87-4010Ojedurxxv [Moles/Vol]3.7 mmol/LNormal 3.5-5.0ProWyandot Memorial HospitalComment on above:Performed By: #### XENIA, 92962- 0, 56303-0, CBCA #### [facility] ([id number]) [address] [facility] [place], [place] [address]KE CHEST 1 VWon 85-71-6400JE CHEST 1 VWXR CHEST 1 VW Single [...] by Alli Bateman MD on 04/23/2023 6:11 AMNormalProParma Community General Hospital AND AUTO DIFFon 84-07-9534Rhwtgehsxpe (Bld) [#/Vol]0.1 10*3/uLNormal 0.0-0.4Kettering Health Main CampusComment on above:Performed By: #### 624-7 #### [facility] ([id number]) [address], [address] [place], [place] [address]Sexkihmosiq/100 WBC (Bld)1.0 %[facility] Comment on above:Performed By: #### 624-7 #### [facility] ([id number]) [address], [address] [place], [place] [address]Zlircxzfbsx distribution width (RBC) [Ratio]20.5 %High11.5-15.0 ProMedicLoma Linda University Medical Center HospitalComment on above:Performed By: #### 624-7 #### [facility] ([id number]) [address], [address] [place], [place] [address]Iwrzajahel (Bld) [Volume fraction]34.1 %Ffn85-46GgtJagswkKettering Health Main CampusComment on above:Performed By: #### 624-7 #### [facility] ([id number]) [address], [address] [place], [place] [address]Ztdeawzvgx (Bld) [Mass/Vol]10.8 g/dLLow11.7-15.5PSamaritan HospitalComment on above:Performed By: #### 624-7 #### [facility] ([id number]) [address], [address] [place], [place] [address]SOIFLSCWFB, ATYPICAL2.0 %NormalKettering Health Main CampusComment on above:Performed By: #### 624-7 #### [facility] ([id number]) [address], [address] [place], [place] [address]Irmgsfykgsy (Bld) [#/Vol]2.0 10*3/uLNormal1.0-3.5PSamaritan HospitalComment on above:Performed By: #### 624-7 #### [facility] ([id number]) [address], [address] [place], [place] [address]Hddpjyafgip/100 WBC (Bld)26.5 %NormalKettering Health Main Campus Comment on above:Performed By: #### 624-7 #### [facility] ([id number]) [address], [address] [place], [place] [address]UER (RBC) [Entitic mass]26.9 qdYev92-07VfhMtighhKettering Health Main CampusComment on above:Performed By: #### 624-7 #### [facility] ([id number]) [address], [address] [place], [place] [address]FJAN (RBC) [Mass/Vol]31.6 g/nVBrm38-57EcfUiemeqKettering Health Main Campus Comment on above:Performed By: #### 624-7 #### [facility] ([id number]) [address], [address] [place], [place] [address]OUJ (RBC) [Entitic vol]85 aDBekrzz00-903DnjEwhsuuKettering Health Main CampusComment on above:Performed By: #### 624-7 #### [facility] ([id number]) [address], [address] [place], [place] [address]Fgdnwgaml (Bld) [#/Vol]0.9 10*3/uLNormal0-0.9Kettering Health Main CampusComment on above:Performed By: #### 624-7 #### [facility] ([id number]) [address], [address] [place], [place] [address]Lydqbwlcd/100 WBC (Bld)12.7 %NormalKettering Health Main Campus Comment on above:Performed By: #### 624-7 #### [facility] ([id number]) [address], [address] [place], [place] [address]Mooccaiuxdp (Bld) [#/Vol]4.2 10*3/uLNormal1.5-6.6Kettering Health Main CampusComment on above:Performed By: #### 624-7 #### [facility] ([id number]) [address], [address] [place], [place] [address]KMKPBHEYO RBC1.0 /100 WBCNormal0.0-1.0[facility] Comment on above:Performed By: #### 624-7 #### [facility] ([id number]) [address], [address] [place], [place] [address]Qaguzbfh mean volume (Bld) [Entitic vol]7.8 fLNormal7-12 ProMCleveland Clinic Hillcrest Hospital HospitalComment on above:Performed By: #### 624-7 #### [facility] ([id number]) [address], [address] [place], [place] [address]Awbiyzrel (Bld) [#/Vol]370 10*3/hARpurek361-607OsfUkzfyx [facility] HospitalComment on above:Performed By: #### 624-7 #### [facility] ([id number]) [address], [address] [place], [place] [address]WXHLETTFGAHPX8+AbnormalNONEProMedica Lake District HospitalComment on above:Performed By: #### 624-7 #### [facility] ([id number]) [address], [address] [place], [place] [address]VMD COUNT4.00 X10E12/LNormal3.80-5.20[facility] Comment on above:Performed By: #### 624-7 #### [facility] ([id number]) [address], [address] [place], [place] [address]UDR THDRPMFHEG40.8 %NormalProGeorgetown Behavioral Hospital HospitalComment on above:Performed By: #### 624-7 #### [facility] ([id number]) [address], [address] [place], [place] [address]PGC (Bld) [#/Vol]7.3 10*3/uLNormal4.0-11.0ProGeorgetown Behavioral Hospital HospitalComment on above:Performed By: #### 624-7 #### [facility] ([id number]) [address], [address] [place], [place] [address]JAAFODQPJFMYE METABOLIC PANELon 59-53-5264Dhsdtad [Mass/Vol]3.0 g/dLLow3.2-5.3PCleveland Clinic Akron General HospitalComment on above:Performed By: #### 624- 7 #### [facility] ([id number]) [address], [address] [place], [place] [address]UZK [Catalytic activity/Vol]68 U/QCmqzjx82-627KstNynusm [facility] HospitalComment on above:Performed By: #### 624-7 #### [facility] ([id number]) [address], [address] [place], [place] [address]NDA [Catalytic activity/Vol]16 U/LNormal0-31PCleveland Clinic [facility] General HospitalComment on above:Performed By: #### 624-7 #### [facility] ([id number]) [address], [address] [place], [place] [address]Uefza gap [Moles/Vol]11 mmol/LNormal5-15ProGeorgetown Behavioral Hospital HospitalComment on above:Performed By: #### 624-7 #### [facility] ([id number]) [address], [address] [place], [place] [address]DPB [Catalytic activity/Vol]18 U/LNormal0-41ProGeorgetown Behavioral Hospital HospitalComment on above:Performed By: #### 624-7 #### [facility] ([id number]) [address], [address] [place], [place] [address]Bqdodzxlg [Mass/Vol]0.5 mg/dLNormal0.3-1.2PCleveland Clinic Akron General HospitalComment on above:Performed By: #### 624-7 #### [facility] ([id number]) [address], [address] [place], [place] [address]Ieojuye [Mass/Vol]9.5 mg/dLNormal8.5-10.5PSamaritan HospitalComment on above:Performed By: #### 624-7 #### [facility] ([id number]) [address], [address] [place] [address]Kvmrbiwg [Moles/Vol]113 mmol/KEtaj63-412DagFadwvrWyandot Memorial HospitalComment on above:Performed By: #### 624-7 #### [facility] ([id number]) [address], [address] [place], [place] [address]QD1 [Moles/Vol]22 mmol/QQytmzt94-08FcfRyagyrSamaritan Hospital Comment on above:Performed By: #### 624-7 #### [facility] ([id number]) [address] [address] [place], [place] [address]Wwfljjqtto [Mass/Vol]0.85 mg/dLNormal0.40-1.00K[facility]tering Health Main CampusComment on above:Result Comment: METHOD TRACEABLE TO IDMS STANDARD Performed By: #### 624-7 #### [facility] ([id number]) [address] [address] [place] [address]OZC/1.73 sq M.predicted among non-blacks MDRD (S/P/Bld) [Vol rate/Area]78 mL/min/{1.73_m2}Normal>59ProWyandot Memorial HospitalComment on above:Result Comment: Reported eGFR is based on the CKD-EPI 2021 equation that does not use a race coefficient.Performed By: #### 624-7 #### [facility] ([id number]) [address], [address] [place], [place] [address]Zftottf [Mass/Vol]107 mg/eBFagd90-85OqiZzhlitKettering Health Main Campus Comment on above:Performed By: #### 624-7 #### [facility] ([id number]) [address], [address] [place], [place] [address]Fommeltlq [Moles/Vol]3.3 mmol/LLow3.5-5.0ProGeorgetown Behavioral Hospital HospitalComment on above:Performed By: #### 624-7 #### [facility] ([id number]) [address], [address] [place], [place] [address]Ezzcvdz [Mass/Vol]7.6 g/dLNormal6.0-8.0ProGeorgetown Behavioral Hospital HospitalComment on above:Performed By: #### 624-7 #### [facility] ([id number]) [address], [address] [place], [place] [address]Azmthh [Moles/Vol]146 mmol/JOcqlna933-379RjkIwebqs [facility] HospitalComment on above:Performed By: #### 624-7 #### [facility] ([id number]) [address], [address] [place], [place] [address]Pgxd nitrogen [Mass/Vol]22 mg/dLNormal5-23ProGe[facility]al [facility] HospitalComment on above:Performed By: #### 624-7 #### [facility] ([id number]) [address], [address] [place], [place] [address]Mfspjxx Glucometer (BldC) [Mass/Vol]on 97-19-9199Uzppcgi [Mass/Vol]149 mg/jQDhdg22-70JluQgcxyh [facility] HospitalGlucose [Mass/Vol]126 mg/vOUcka21-97VsdAsnrni [facility] HospitalGlucose [Mass/Vol]109 mg/zQWepm57-72 ProMCleveland Clinic Hillcrest Hospital HospitalGlucose [Mass/Vol]103 mg/hCYptc82-80CocHlwmafWyandot Memorial HospitalPOTASSIUMon 42-37-5725Yszdferwk [Moles/Vol]3.8 mmol/LNormal3.5-5.0 [facility] HospitalComment on above:Performed By: #### 624-7 #### [facility] ([id number]) [address], [address] [place], [place] [address]Ydxyzkrtx [Moles/Vol]3.3 mmol/LLow3.5-5.0K[facility] Health [facility] CampusComment on above:Performed By: #### 624-7 #### [facility] ([id number]) [address], [address] [place], [place] [address]EXLRUSMUCELXvt 12-05-8248Btycfwkvdocn [Mass/Vol]510 mg/dLHigh 27-150ProWyandot Memorial HospitalComment on above:Performed By: #### 624-7 #### [facility] ([id number]) [address], [address] [place], [place] [address]FA CHEST 1 VWon 13-58-4881EV CHEST 1 VWXR CHEST 1 VW Single [...] Victor Hugo Gustafson MD on 04/22/2023 6:14 AMNormalProWyandot Memorial HospitalCB AND AUTO DIFFon 95-72-4426LGOXXZZO BASOPHIL0.0 X10E9/LNormal0.0-0.2 Pro[facility] District HospitalComment on above:Performed By: #### 2571-8 ####[facility] ([id number])[address] [address]#### CMP, CBCA ####[facility] ([id number])[address] [place], [place] [address]CLPPMSMT NEUTROPHIL4.3 X10E9/LNormal1.5-6.6[facility] Comment on above:Performed By: #### 2571-8 ####[facility] ([id number])[address] [facility], [address] [place] [address]#### CMP, CBCA ####[facility] ([id number])[address] [place], [place] [address]Jwkgjkmlc/100 WBC (Bld)0.4 %NormalProWyandot Memorial HospitalComment on above:Performed By: #### 2571-8 ####[facility] ([id number])[address] [facility] [address] [place] [address]#### CMP, CBCA ####[facility] ([id number])[address] [place], [place] [address]Lzipzvaocol (Bld) [#/Vol]0.1 10*3/uL Normal0.0-0.4ProWyandot Memorial HospitalComment on above:Performed By: #### 2571- 8 ####[facility] ([id number])[address] [facility], [address] [place] [address]#### CMP, CBCA ####[facility] ([id number])[address] [place], [place] [address]Tapvezrnrgp/100 WBC (Bld)1.2 %NormalProWyandot Memorial HospitalComment on above:Performed By: #### 2571-8 ####[facility] ([id number])[address] [facility] [address] [place] [address]#### CMP, CBCA ####[facility] ([id number])[address] [place], [place] [address]Tpvulpnjsxq distribution width (RBC) [Ratio]20.6 %High11.5-15.0[facility] Comment on above:Performed By: #### 2571-8 ####[facility] ([id number])[address] [address]#### CMP, CBCA ####[facility] ([id number])[address] [place], [place] [address]Funqvsacqx (Bld) [Volume fraction]31.6 %Jkm28-70EjgIqibds [facility] [place] HospitalComment on above: Performed By: #### 2571-8 ####[facility] ([id number])[address] [facility] [address] [address]#### CMP, CBCA ####[facility] ([id number])[address] [place], [place] [address]Kqnifgdhpw (Bld) [Mass/Vol] 10.1 g/dLLow11.7-15.5ProMedOhioHealth Grove City Methodist HospitalComment on above:Performed By: #### 2571-8 ####[facility] ([id number])[address] [facility] [address] [address]#### CMP, CBCA ####[facility] ([id number])[address] [place], [place] [address]Lloiyzjcqzh (Bld) [#/Vol]1.3 10*3/uL Normal1.0-3.5PSamaritan HospitalComment on above:Performed By: #### 2571- 8 ####[facility] ([id number])[address] [address]#### CMP, CBCA ####[facility] ([id number])[address] [place], [place] [address]Jvokzhtephv/100 WBC (Bld)21.1 %NormalProWyandot Memorial HospitalComment on above:Performed By: #### 2571-8 ####[facility] ([id number])[address] [address] [address]#### CMP, CBCA ####[facility] ([id number])[address] [place], [place] [address]LLM (RBC) [Entitic mass]27.2 zrPpskmd16-90YqlYzoocs [facility] [place] HospitalComment on above: Performed By: #### 2571-8 ####[facility] ([id number])[address], [address] [place] [address]#### CMP, CBCA ####[facility] ([id number])[address] [place], [place] [address]ODKW (RBC) [Mass/Vol]32.1 g/rDNbspot64-02YaxTjqcqa [facility] [place] HospitalComment on above:Performed By: #### 2571-8 ####[facility] ([id number])[address] [facility] [address] [place] [address]#### CMP, CBCA ####[facility] ([id number])[address] [place], [place] [address]QVC (RBC) [Entitic vol]85 fLNormal 80-100ProMedica [facility] [place] HospitalComment on above:Performed By: #### 2571-8 ####[facility] ([id number])[address] [facility] [address] [place] [address]#### CMP, CBCA ####[facility] ([id number])[address] [place], [place] [address]Ppgmpyfnm (Bld) [#/Vol]0.5 10*3/uLNormal0-0.9ProMedica [facility] [place] HospitalComment on above:Performed By: #### 2571-8 ####[facility] ([id number])[address] [address] [place] [address]#### CMP, CBCA ####[facility] ([id number])[address] [place] [address] Monocytes/100 WBC (Bld)8.3 %NormalProMiami Valley Hospitalca [facility] [place] HospitalComment on above: Performed By: #### 2571-8 ####[facility] ([id number])[address] [address]#### CMP, CBCA ####[facility] ([id number])[address] [place] [address]Frpessgwxli/100 WBC (Bld) 69.0 %NormalProWyandot Memorial HospitalComment on above:Performed By: #### 2571-8 ####[facility] ([id number])[address] [address]#### CMP, CBCA ####[facility] ([id number])[address] [place] [address]Clwxeinr mean volume (Bld) [Entitic vol]7.7 fLNormal7-12 [facility] HospitalComment on above:Performed By: #### 2571-8 ####[facility] ([id number])[address] [address]#### CMP, CBCA ####[facility] ([id number])[address] [facility] [place] [address]Fqdcholwr (Bld) [#/Vol]349 10*3/bVGpzvkp214-929QcyXiyjenKettering Health Main Campus Comment on above:Performed By: #### 2571-8 ####[facility] ([id number])[address] [address]#### CMP, CBCA ####[facility] ([id number])[address] [place] [address]JDA COUNT3.73 X10E12/LLow3.80-5.20ProWyandot Memorial HospitalComment on above:Performed By: #### 2571-8 ####[facility] ([id number])[address] [address]#### CMP, CBCA ####[facility] ([id number])[address] [place], [place] [address]RMJ morphology finding Nom (Bld) REVIEWEDNormalProMedica Lake District HospitalComment on above:Performed By: #### 2571-8 ####[facility] ([id number])[address], [address] [place] [address]#### CMP, CBCA ####[facility] ([id number])[address] [place], [place] [address]JGR (Bld) [#/Vol]6.2 10*3/uLNormal 4.0-11.0Pro[facility] HospitalComment on above:Performed By: #### 2571-8 ####[facility] ([id number])[address] [facility], [address] [place] [address]#### CMP, CBCA ####[facility] ([id number])[address] [place], [place] [address]MURHWLRTTGKRY METABOLIC PANELon 39-25-7773Qsdroku [Mass/Vol] 2.7 g/dLLow3.2-5.3Pro[facility] HospitalComment on above:Performed By: #### 2571-8 ####[facility] ([id number])[address], [address] [place] [address]#### CMP, CBCA ####[facility] ([id number])[address] [place], [place] [address]MTR [Catalytic activity/Vol]63 U/L Bwcych48-518IkyOfwkumWyandot Memorial HospitalComment on above:Performed By: #### 2571-8 ####[facility] ([id number])[address] [address]#### CMP, CBCA ####[facility] ([id number])[address] [place], [place] [address]YYK [Catalytic activity/Vol]14 U/LNormal0-31ProMedOhioHealth Grady Memorial Hospital HospitalComment on above:Performed By: #### 2571-8 ####[facility] ([id number])[address] [address]#### CMP, CBCA ####[facility] ([id number])[address] [facility] [place], [place] [address]Jyzxx gap [Moles/Vol]7 mmol/LNormal5-15ProGe[facility] HospitalComment on above: Performed By: #### 2571-8 ####[facility] ([id number])[address] [facility], [address] [address]#### CMP, CBCA ####[facility] ([id number])[address] [facility] [place], [place] [address]ZCF [Catalytic activity/Vol]16 U/LNormal0-41Pro[facility] HospitalComment on above: Performed By: #### 2571-8 ####[facility] ([id number])[address] [facility], [address] [address]#### CMP, CBCA ####[facility] ([id number])[address] [facility] [place], [place] [address]Qapmeowil [Mass/Vol]0.7 mg/dLNormal0.3-1.2ProMedOhioHealth Grady Memorial Hospital HospitalComment on above:Performed By: #### 2571-8 ####[facility] ([id number])[address] [address]#### CMP, CBCA ####[facility] ([id number])[address] [facility] [place], [place] [address]Juruvol [Mass/Vol]8.2 mg/dLLow 8.5-10.5ProMedOhioHealth Grady Memorial Hospital HospitalComment on above:Performed By: #### 2571-8 ####[facility] ([id number])[address] [address]#### CMP, CBCA ####[facility] ([id number])[address] [place], [place] [address]Fpnbwpya [Moles/Vol]115 mmol/BWfnx05-858MfqNkwwwoWyandot Memorial HospitalComment on above:Performed By: #### 2571-8 ####[facility] ([id number])[address] [facility], [address] [address]#### CMP, CBCA ####[facility] ([id number])[address] [place], [place] [address]XR6 [Moles/Vol]23 mmol/FOofdcz78-91XzhVowptg Lake District HospitalComment on above: Performed By: #### 2571-8 ####[facility] ([id number])[address] [place] [address] [place] [address]#### CMP, CBCA ####[facility] ([id number])[address] [place] [address]Qkunvbqktm [Mass/Vol]0.77 mg/dLNormal0.40-1.00ProWyandot Memorial HospitalComment on above:Result Comment: METHOD TRACEABLE TO IDMS STANDARDPerformed By: #### 2571-8 ####[facility] ([id number])[address] [place] [address], [address] [place] [address]#### CMP, CBCA ####[facility] ([id number])[address] [place] [address] GFR/1.73 sq M.predicted among non-blacks MDRD (S/P/Bld) [Vol rate/Area]88 mL/min/{1.73_m2}Normal>59ProWyandot Memorial HospitalComment on above:Result Comment: Reported eGFR is based on the CKD-EPI 2020 equation that does not use a race coefficient.Performed By: #### 2571-8 ####[facility] ([id number])[address] [place] [address], [address] [place] [address]#### CMP, CBCA ####[facility] ([id number])[address] [place] [address] Glucose [Mass/Vol]100 mg/vZTvyg82-48JeyNvfiny [facility] HospitalComment on above: Performed By: #### 2571-8 ####[facility] ([id number])[address] [facility], [address] [address]#### CMP, CBCA ####[facility] ([id number])2801 [place], [place] [address]Tomgqfthz [Moles/Vol]4.1 mmol/LNormal3.5-5.0ProGeorgetown Behavioral Hospital HospitalComment on above:Performed By: #### 2571-8 ####[facility] ([id number])0 [facility], [address] [address]#### CMP, CBCA ####[facility] ([id number])2801 [place], [place] [address]Bsbwylo [Mass/Vol]6.8 g/dLNormal 6.0-8.0ProWyandot Memorial HospitalComment on above:Performed By: #### 2571-8 ####[facility] ([id number])[facility], [address] [place] [address]#### CMP, CBCA ####[facility] ([id number])2801 [place], [place] [address]Jdwtec [Moles/Vol]145 mmol/SXaljqh721-389EhwSfjdbc [facility]park HospitalComment on above:Performed By: #### 2571-8 ####[facility] ([id number])[address] [facility], [address] [address]#### CMP, CBCA ####[facility] ([id number])2801 [place], [place] [address]Ffps nitrogen [Mass/Vol]21 mg/dLNormal5-23ProGeorgetown [facility]al Hospital HospitalComment on above: Performed By: #### 2571-8 ####[facility] ([id number])[address] [place] [address], [address] [place] [address]#### XENIA, CBCA ####[facility] ([id number])[address] [place] [address]Sxutgve Glucometer (BldC) [Mass/Vol]on 39-45-6669Nyojvhb [Mass/Vol]170 mg/yBXbzj97-59LdxUeyzoiWyandot Memorial HospitalGlucose [Mass/Vol]102 mg/yZWvbp14-90SpmCnfkjbWyandot Memorial HospitalGlucose [Mass/Vol]93 mg/jRSfifyz92-82TbjLvhcneWyandot Memorial HospitalGlucose [Mass/Vol]115 mg/lTPhjm66-67ThmWsbgrlKettering Health Main CampusTRIGLYCERIDEon 29-41-1571Dfxqufotkgco [Mass/Vol]422 mg/qRHcot33-224AujRymahfKettering Health Main CampusComment on above: Performed By: #### 2571-8 ####[facility] ([id number])[address] [place] [address], [address] [place] [address]#### XENIA, CBCA ####[facility] ([id number])[address] [place] [address] 22346CS CHEST 1 VWon 04-21-2023 XR CHEST 1 [...] Victor Hugo Kim MD on 04/21/2023 5:51 AMNormalProMediSelect Medical Specialty Hospital - CincinnatiCB AND AUTO DIFFon 91-48-2861ULZRYSLP BASOPHIL0.0 X10E9/LNormal0.0-0.2 ProMedicLima City HospitalComment on above:Performed By: #### CBCA, CMP ####[facility] ([id number])[address] [place], [place] [id number]#### 2571-8 ####[facility] ([id number])[address], [address] [address]PLCPYTFL NEUTROPHIL3.9 X10E9/LNormal1.5-6.6ProWyandot Memorial Hospital Comment on above:Performed By: #### CBCA, CMP ####[facility] ([id number])[address] [place], [place] [address]#### 2571-8 ####[facility] ([id number])[address], [address] [address]Lawclvmlr/100 WBC (Bld)0.3 %NormalProWyandot Memorial HospitalComment on above:Performed By: #### CBCA, CMP ####[facility] ([id number])[address] [place], [place] [address]#### 2571-8 ####[facility] ([id number])[address], [address] [address]Hqnaerfpqgr (Bld) [#/Vol]0.1 10*3/uLNormal 0.0-0.4ProWyandot Memorial HospitalComment on above:Performed By: #### CBCA, CMP ####[facility] ([id number])[address] [place], [place] [address]#### 2571-8 ####[facility] ([id number])[address], [address] [address]Udoaehfages/100 WBC (Bld)1.1 %NormalProWyandot Memorial HospitalComment on above:Performed By: #### CBCA, CMP ####[facility] ([id number])[address] [place], [place]#### 2571-8 ####[facility] ([id number])[address] [address] Erythrocyte distribution width (RBC) [Ratio]21.9 %High11.5-15.0ProWyandot Memorial HospitalComment on above:Performed By: #### CBCA, CMP ####[facility] ([id number])[address] [facility] [id number]#### 2571-8 ####[facility] ([id number])[address], [address], [place] [address] Hematocrit (Bld) [Volume fraction]31.9 %Eqn80-86HfwTvobkwWyandot Memorial Hospital Comment on above:Performed By: #### CBCA, CMP ####[facility] ([id number])[address] [facility] [id number]#### 2571-8 ####[facility] ([id number])[address], [address], [place] [address]Qfzegmvctu (Bld) [Mass/Vol]10.0 g/dLLow11.7-15.5PSamaritan HospitalComment on above: Performed By: #### CBCA, CMP ####[facility] ([id number])[address] [facility] [id number]#### 2571-8 ####[facility] ([id number])[address], [address], [place] [address]Lgqlctmbmnc (Bld) [#/Vol] 1.2 10*3/uLNormal1.0-3.5PSamaritan HospitalComment on above:Performed By: #### CBCA, CMP ####[facility] ([id number])[address] [facility] [id number]#### 2571-8 ####[facility] ([id number])[address], [address], [place] [address]Kegqbqfgqer/100 WBC (Bld)20.9 %Normal [facility] HospitalComment on above:Performed By: #### CBCA, CMP ####[facility] ([id number])[address] [place], [place]#### 2571-8 ####[facility] ([id number])[address], [address], [place] [address]NQV (RBC) [Entitic mass]26.5 rzIzw98-96SatZciugqWyandot Memorial HospitalComment on above:Performed By: #### CBCA, CMP ####[facility] ([id number])[address] [place], [place] [address]#### 2571-8 ####[facility] ([id number])[address], [address] [place] [address]RPNN (RBC) [Mass/Vol]31.3 g/iPTpw87-06HmcLyjjivWyandot Memorial HospitalComment on above:Performed By: #### CBCA, CMP ####[facility] ([id number])[address] [place], [place] [address]#### 2571-8 ####[facility] ([id number])[address] [address] [place] [address]YUB (RBC) [Entitic vol]85 nPMpdswp89-192 [facility] HospitalComment on above:Performed By: #### CBCA, CMP ####[facility] ([id number])[address] [place], [place] [address]#### 2571-8 ####[facility] ([id number])[address] [address] [place] [address]Evctgxbty (Bld) [#/Vol]0.5 10*3/uLNormal0-0.9[facility] Comment on above:Performed By: #### CBCA, CMP ####[facility] ([id number])[address] [place], [place] [address]#### 2571-8 ####[facility] ([id number])[address], [address] [place] [address]Liskvuecr/100 WBC (Bld)8.8 %NormalProMiami Valley Hospitalca [facility] Phoenix HospitalComment on above:Performed By: #### CBCA, CMP ####[facility] ([id number])[address] [facility] [id number]#### 2571-8 ####[facility] ([id number])[address], [address], [place] [address]Zhswvcmidtg/100 WBC (Bld)68.9 %Normal [facility] Phoenix HospitalComment on above:Performed By: #### CBCA, CMP ####[facility] ([id number])[address] [place] [address], [id number]#### 2571-8 ####[facility] ([id number])[address], [address] [place] [address]Agwlzhyy mean volume (Bld) [Entitic vol]7.5 fLNormal7-12[facility] HospitalComment on above:Performed By: #### CBCA, CMP ####[facility] ([id number])[address] [facility], [id number]#### 2571-8 ####[facility] ([id number])[address], [address] [place] [address] Platelets (Bld) [#/Vol]347 10*3/jALfuumz034-342MtxFexxvp [facility] HospitalComment on above:Performed By: #### CBCA, CMP ####[facility] ([id number])[address] [place] [address], [id number]#### 2571-8 ####[facility] ([id number])[address], [address] [place] [address]IXO COUNT3.77 X10E12/LLow3.80-5.20ProWyandot Memorial HospitalComment on above:Performed By: #### CBCA, CMP ####[facility] ([id number])[address] [facility], [id number]#### 2571-8 ####[facility] ([id number])[address], [address], [place] [address]GUM morphology finding Nom (Bld)REVIEWED NormalProWyandot Memorial HospitalComment on above:Performed By: #### CBCA, CMP ####[facility] ([id number])[address] [facility] [id number]#### 2571-8 ####[facility] ([id number])[address], [address], [place] [address]JIX (Bld) [#/Vol]5.6 10*3/uLNormal4.0-11.0[facility] Main CampusComment on above:Performed By: #### CBCA, CMP ####[facility] ([id number])[address] [facility] [id number]#### 2571-8 ####[facility] ([id number])[address], [address] [address] COMPREHENSIVE METABOLIC PANELon 29-13-8931Tcnydnu [Mass/Vol]2.6 g/dLLow3.2-5.3 [facility] HospitalComment on above:Performed By: #### CBCA, CMP ####[facility] ([id number])[address] [place], [place]#### 2571-8 ####[facility] ([id number])[address], [address], [place] [address]HPH [Catalytic activity/Vol]66 U/WNsxnoc63-012QgvNnuluoWyandot Memorial Hospital Comment on above:Performed By: #### CBCA, CMP ####[facility] ([id number])[address] [facility] [id number]#### 2571-8 ####[facility] ([id number])[address], [address], [place] [address]ZUZ [Catalytic activity/Vol]14 U/LNormal0-31ProMedOhioHealth Grady Memorial Hospital HospitalComment on above: Performed By: #### CBCA, CMP ####[facility] ([id number])[address] [facility], [id number]#### 2571-8 ####[facility] ([id number])[address], [address], [place] [address]Pzxwz gap [Moles/Vol]7 mmol/LNormal5-15ProGe[facility] HospitalComment on above:Performed By: #### CBCA, CMP ####[facility] ([id number])[address] [place] [address]#### 2571-8 ####[facility] ([id number])[address], [address], [place] [address]JGW [Catalytic activity/Vol]14 U/LNormal0-41ProGe[facility] Behavioral Hospital HospitalComment on above:Performed By: #### CBCA, CMP ####[facility] ([id number])[address] [facility], [id number]#### 2571-8 ####[facility] ([id number])[address], [address], [place] [address]Otitsivod [Mass/Vol]0.5 mg/dLNormal0.3-1.2ProMedOhioHealth Grady Memorial Hospital HospitalComment on above:Performed By: #### CBCA, CMP ####[facility] ([id number])[address] [facility], [id number]#### 2571-8 ####[facility] ([id number])[address], [address], [place] [address]Pabfmls [Mass/Vol]8.4 mg/dLLow8.5-10.5ProMedOhioHealth Grady Memorial Hospital HospitalComment on above: Performed By: #### CBCA, CMP ####[facility] ([id number])[address] [facility], [id number]#### 2571-8 ####[facility] ([id number])[address], [address], [place] [address]Ogdaggfl [Moles/Vol]115 mmol/KNrsf00-092KnuGnrjdrWyandot Memorial HospitalComment on above:Performed By: #### MARTINA, CMP ####[facility] ([id number])[address] [place] [address]#### 2571-8 ####[facility] ([id number])[address] [facility] [address], [place] [address]EG2 [Moles/Vol]23 mmol/BBrcxfd30-68ImuBccilj [facility] HospitalComment on above:Performed By: #### ANNA, CMP ####[facility] ([id number])[address] [place] [address] [id number]#### 2571-8 ####[facility] ([id number])[address] [facility], [address] [address] Creatinine [Mass/Vol]0.75 mg/dLNormal0.40-1.00ProWyandot Memorial HospitalComment on above:Result Comment: METHOD TRACEABLE TO IDMS STANDARDPerformed By: #### ANNA, CMP ####[facility] ([id number])[address] [place] [address]#### 2571-8 ####[facility] ([id number])[address] [address], [place] [address]nLOP (CKD-EPI) NON-RACE DEPENDENT>90Normal>59ProWyandot Memorial HospitalComment on above:Result Comment: Reported eGFR is based on the CKD-EPI 2020 equation that does not use a race coefficient.Performed By: #### CBCA, CMP ####[facility] ([id number])[address] [facility] [id number]#### 2571-8 ####[facility] ([id number])[address], [place] [address] Glucose [Mass/Vol]100 mg/oLCdby11-10TgxDqttkcWyandot Memorial HospitalComment on above: Performed By: #### CBCA, CMP ####[facility] ([id number])[address] [facility], [id number]#### 2571-8 ####[facility] ([id number])[address], [address], [place] [address]Pqgojfwsx [Moles/Vol]3.7 mmol/LNormal3.5-5.0ProWyandot Memorial HospitalComment on above:Performed By: #### CBCA, CMP ####[facility] ([id number])[address] [place] [address] [id number]#### 2571-8 ####[facility] ([id number])[address], [address], [place] [address]Zwdtvuj [Mass/Vol]7.0 g/dLNormal6.0-8.0ProWyandot Memorial HospitalComment on above:Performed By: #### CBCA, CMP ####[facility] ([id number])[address] [place] [address], [id number]#### 2571-8 ####[facility] ([id number])[address], [address], [place] [address]Hpucma [Moles/Vol]145 mmol/GHksfes288-781TrrKdttpq [facility] HospitalComment on above:Performed By: #### CBCA, CMP ####[facility] ([id number])[address] [facility], [id number]#### 2571-8 ####[facility] ([id number])[address], [place] [address]Cmkg nitrogen [Mass/Vol]16 mg/dLNormal5-23ProWyandot Memorial HospitalComment on above:Performed By: #### CBCA, CMP ####[facility] ([id number])[address] [place], [place]#### 2571-8 ####[facility] ([id number])[address] [facility], [address], [place] [address]Ehgvqfz Glucometer (BldC) [Mass/Vol]on 02-41-7512Uedehrw [Mass/Vol]135 mg/eBRblm22-09CjjZpqahlWyandot Memorial HospitalGlucose [Mass/Vol]105 mg/nSXfuz95-37MijHbvesjWyandot Memorial HospitalGlucose [Mass/Vol]87 mg/dL Xfftol16-68IrlPqhnptWyandot Memorial HospitalGlucose [Mass/Vol]97 mg/eZIomfrt95-34 [facility] HospitalPOTASSIUMon 07-37-0407Rfehcklxi [Moles/Vol]3.8 mmol/L Normal3.5-5.0[facility] CampusComment on above:Performed By: #### 2823- 3 ####[facility] ([id number])[address] [place] [address] Potassium [Moles/Vol]4.1 mmol/LNormal3.5-5.0ProWyandot Memorial HospitalComment on above:Performed By: #### 2823-3 ####[facility] ([id number])[address] [place], [place] [address]NZHSDBOBDRHNfv 04-20-2023 Triglyceride [Mass/Vol]335 mg/zUFhwy16-016AesEwlyrvWyandot Memorial HospitalComment on above:Performed By: #### CBCA, CMP ####[facility] ([id number])[address] [place], [place] [id number]#### 2571-8 ####[facility] ([id number])[address] [facility], [address], [place] [address]MQ CHEST 1 VWon 40-84-0859QD CHEST 1 VWXR CHEST 1 VW Clinical [...] by Tristen Neely MD on 04/20/2023 5:33 AMNormalKettering Health Main CampusARTERIAL BLOOD GASon 90-12-5815EHSKJ'S TESTPassNormalKettering Health Main CampusComment on above:Performed By: #### ABG #### [facility] ([id number]) [address] [place], [place] [address]FMFV,DEFICIT1.0 MMOL/LNormal0.0-2.0[facility] Comment on above:Performed By: #### ABG #### [facility] ([id number]) [address] [place] [address]Pyfz wtemhocdhus52.6 [degF]Qjlreq59.0[facility] Comment on above:Performed By: #### ABG #### [facility] ([id number]) [address] [place] [address]FEL6 (Bld) [Moles/Vol]24.2 mmol/EIeeasz35-08EyjGzjruyWyandot Memorial HospitalComment on above:Performed By: #### ABG #### [facility] ([id number]) [address] [place] [address]PYOG. O2 CONC.40 %NormalProWyandot Memorial HospitalComment on above:Performed By: #### ABG #### [facility] ([id number]) [address] [place], [place] [address]Zmggfg (Bld) [Partial pressure]69 mm[Hg]Tlo21-192SukRlwsqaWyandot Memorial HospitalComment on above:Performed By: #### ABG #### [facility] ([id number]) [address] [place], [place] [address]Vevxsn saturation in Blood93.0 %Normal>90ProWyandot Memorial HospitalComment on above:Performed By: #### ABG #### [facility] ([id number]) [address] [place], [place] [address]UTCLUE SOURCEVentNormalProWyandot Memorial HospitalComment on above:Performed By: #### ABG #### [facility] ([id number]) [address] [place], [place] [address]VCW307.9 IZFNSplwof01-65TwwFxenig [facility] HospitalComment on above:Performed By: #### ABG #### [facility] ([id number]) [address] [place], [place] [address]eS (Bld)7.371 [pH]Normal7.350-7.450ProW[facility]ot Memorial Hospital Comment on above:Performed By: #### ABG #### [facility] ([id number]) [address] [place], [place] [address]LBVIKT SITELRadNormalKettering Health Main CampusComment on above: Performed By: #### ABG #### [facility] ([id number]) [address] [place], [place] [address]LYYQEJ TYPEARTERIALNormalProWyandot Memorial HospitalComment on above:Performed By: #### ABG #### [facility] ([id number]) [address] [place], [place] [address]SZD AND AUTO DIFFon 00-39-6855AFMSJPYV BASOPHIL0.0 X10E9/LNormal 0.0-0.2[facility] District HospitalComment on above:Performed By: #### ABG #### [facility] ([id number]) [address] [place], [place] [address]AQCFSBCQ NEUTROPHIL3.7 X10E9/LNormal1.5-6.6ProWyandot Memorial HospitalComment on above:Performed By: #### ABG #### [facility] ([id number]) [address] [place], [place] [address]Dlgqpahjz/100 WBC (Bld)0.3 %NormalKettering Health Main Campus Comment on above:Performed By: #### ABG #### [facility] ([id number]) [address] [place], [place] [address]Bsxpgepxnhq (Bld) [#/Vol]0.0 10*3/uLNormal0.0-0.4K[facility] Main CampusComment on above:Performed By: #### ABG #### [facility] ([id number]) [address] [place], [place] [address]Ldyscvhashi/100 WBC (Bld)0.8 %[facility] Comment on above:Performed By: #### ABG #### [facility] ([id number]) [address] [place], [place] [address]Eyebosehvwr distribution width (RBC) [Ratio]21.6 %High11.5-15.0 [facility] CampusComment on above:Performed By: #### ABG #### [facility] ([id number]) [address] [place], [place] [address]Agvoynjenm (Bld) [Volume fraction]30.5 %Ujt61-06FynNdgsteWyandot Memorial HospitalComment on above:Performed By: #### ABG #### [facility] ([id number]) [address] [place], [place] [address]Vsdxlxusyc (Bld) [Mass/Vol]9.8 g/dLLow11.7-15.5PCleveland Clinic Akron General HospitalComment on above:Performed By: #### ABG #### [facility] ([id number]) [address] [place], [place] [address]Egrvphnyyog (Bld) [#/Vol]1.5 10*3/uLNormal1.0-3.5PSamaritan HospitalComment on above:Performed By: #### ABG #### [facility] ([id number]) [address] [place], [place] [address]Zcyclpekndw/100 WBC (Bld)26.6 %NormalKettering Health Main Campus Comment on above:Performed By: #### ABG #### [facility] ([id number]) [address] [place], [place] [address]YVF (RBC) [Entitic mass]27.0 pnYdmzrm85-08GuyImyrluWyandot Memorial HospitalComment on above:Performed By: #### ABG #### [facility] ([id number]) [address] [place], [place] [address]RYQG (RBC) [Mass/Vol]32.1 g/zVIhzgkk96-86PptZcwmjiWyandot Memorial HospitalComment on above:Performed By: #### ABG #### [facility] ([id number]) [address] [place], [place] [address]RRF (RBC) [Entitic vol]84 lJGfielk47-812GsuMjbifdKettering Health Main CampusComment on above:Performed By: #### ABG #### [facility] ([id number]) [address] [facility] [place], [place] [address]Inrvmpydx (Bld) [#/Vol]0.4 10*3/uLNormal0-0.9K[facility] Main CampusComment on above:Performed By: #### ABG #### [facility] ([id number]) [facility] [place], [place] [address]Chbtiyyav/100 WBC (Bld)6.8 %[facility] Comment on above:Performed By: #### ABG #### [facility] ([id number]) [address] [place] [place], [place] [address]Hjxnwuxaikr/100 WBC (Bld)65.5 %[facility] Comment on above:Performed By: #### ABG #### [facility] ([id number]) [address] [place], [place] [address]Akfovvru mean volume (Bld) [Entitic vol]7.5 fLNormal7-12 [facility] Phoenix HospitalComment on above:Performed By: #### ABG #### [facility] ([id number]) [address] [place], [place] [address]Twexymgeo (Bld) [#/Vol]328 10*3/yDClcsdg308-362FjqWnewtc [facility] HospitalComment on above:Performed By: #### ABG #### [facility] ([id number]) [address] [place], [place] [address]SKQ COUNT3.62 X10E12/LLow3.80-5.20[facility] Comment on above:Performed By: #### ABG #### [facility] ([id number]) [address] [place], [place] [address]YWX morphology finding Nom (d)REVIEWEDNormalKettering Health Main CampusComment on above:Performed By: #### ABG #### [facility] ([id number]) [address] [place], [place] [address]JXJ (d) [#/Vol]5.6 10*3/uLNormal4.0-11.0ProWyandot Memorial HospitalComment on above:Performed By: #### ABG #### [facility] ([id number]) [address] [place], [place] [address]DJAVGQOURTJKP METABOLIC PANELon 06-90-1557Ulxfsub [Mass/Vol]2.4 g/dLLow3.2-5.3PSamaritan HospitalComment on above:Performed By: #### ABG #### [facility] ([id number]) [address] [place], [place] [address]GLA [Catalytic activity/Vol]62 U/HJdudpk59-058XxhImyhfjKettering Health Main CampusComment on above:Performed By: #### ABG #### [facility] ([id number]) [address] [place], [place] [address]GMY [Catalytic activity/Vol]16 U/LNormal0-31ProMedOhioHealth Grove City Methodist HospitalComment on above:Performed By: #### ABG #### [facility] ([id number]) [address] [place], [place] [address]Nfswd gap [Moles/Vol]6 mmol/LNormal5-15ProWyandot Memorial HospitalComment on above:Performed By: #### ABG #### [facility] ([id number]) [address] [place], [place] [address]SNC [Catalytic activity/Vol]18 U/LNormal0-41ProWyandot Memorial HospitalComment on above:Performed By: #### ABG #### [facility] ([id number]) [address] [place], [place] [address]Qamnonylg [Mass/Vol]0.5 mg/dLNormal0.3-1.2PSamaritan HospitalComment on above:Performed By: #### ABG #### [facility] ([id number]) [address] [place], [place] [address]Eapazgx [Mass/Vol]8.2 mg/dLLow8.5-10.5PSamaritan Hospital Comment on above:Performed By: #### ABG #### [facility] ([id number]) [address] [place], [place] [address]Gcciloui [Moles/Vol]115 mmol/MDplq10-484XadLonehtWyandot Memorial HospitalComment on above:Performed By: #### ABG #### [facility] ([id number]) [address] [place], [place] [address]WP3 [Moles/Vol]25 mmol/ACuzbwt38-18MrkNogkudSamaritan Hospital Comment on above:Performed By: #### ABG #### [facility] ([id number]) [address] [place], [place] [address]Iugzpdrklt [Mass/Vol]0.97 mg/dLNormal0.40-1.00ProWyandot Memorial HospitalComment on above:Result Comment: METHOD TRACEABLE TO IDMS STANDARD Performed By: #### ABG #### [facility] ([id number]) [address] [place], [place] [address]HYU/1.73 sq M.predicted among non-blacks MDRD (S/P/Bld) [Vol rate/Area]67 mL/min/{1.73_m2}Normal>59ProWyandot Memorial HospitalComment on above:Result Comment: Reported eGFR is based on the CKD-EPI 2020 equation that does not use a race coefficient.Performed By: #### ABG #### [facility] ([id number]) [address] [place], [place] [address]Cdhgzzg [Mass/Vol]98 mg/bJAvfrzu38-43DesKvgcmwKettering Health Main Campus Comment on above:Performed By: #### ABG #### [facility] ([id number]) [address] [place], [place] [address]Euvafhzfy [Moles/Vol]3.3 mmol/LLow3.5-5.0Kettering Health Main CampusComment on above:Performed By: #### ABG #### [facility] ([id number]) [address] [place], [place] [address]Nvgcopy [Mass/Vol]6.5 g/dLNormal6.0-8.0ProWyandot Memorial HospitalComment on above:Performed By: #### ABG #### [facility] ([id number]) [address] [place], [place] [address]Qmndnq [Moles/Vol]146 mmol/PAadjok003-681YehUfktot Baypark HospitalComment on above:Performed By: #### ABG #### [facility] ([id number]) [address] [place], [place] [address]Sihg nitrogen [Mass/Vol]14 mg/dLNormal5-23ProWyandot Memorial HospitalComment on above:Performed By: #### ABG #### [facility] ([id number]) [address] [place], [place] [address]BIN [Mass/Vol]on 3C REACTIVE PROTEIN6.1 mg/dLHigh 0.000-0.744PSamaritan HospitalComment on above:Performed By: #### ABG #### [facility] ([id number]) [address] [place], [place] [address]Lxwyawv Glucometer (BldC) [Mass/Vol]on 87-06-4857Jqiixfi [Mass/Vol]176 mg/cNHsiw23-65IzqWiiwmvWyandot Memorial HospitalGlucose [Mass/Vol]92 mg/dL Oxqbej53-65OxbWweuanWyandot Memorial HospitalGlucose [Mass/Vol]94 mg/iBZfkkpx26-43 [facility] HospitalGlucose [Mass/Vol]93 mg/zFYaoomg77-11YskOcxtlbWyandot Memorial HospitalLactate (P yong) [Moles/Vol]on 01-56-0231Ltarbwg [Moles/Vol]0.9 mmol/L Normal0.4-2.0ProWyandot Memorial HospitalComment on above:Performed By: #### ABG #### [facility] ([id number]) [address] [facility] [place], [place] [address]Uaayaeumdbt peptide B [Mass/Vol]on 91-24-4865Dvemoobtedc peptide B (Bld) [Mass/Vol]25 pg/mLNormal<100.0ProWyandot Memorial HospitalComment on above:Performed By: #### ABG #### [facility] ([id number]) [address] [facility] [place], [place] [address]TCKTCOVHSeo 82-78-4625Prdnlxmjl [Moles/Vol]3.6 mmol/LNormal 3.5-5.0ProWyandot Memorial HospitalComment on above:Performed By: #### ABG #### [facility] ([id number]) [address] [facility] [place], [place] [address]GR CHEST 1 VWon 95-20-3859CX CHEST 1 VWXR CHEST 1 VW CLINICAL [...] Victor Hugo Kim MD on 04/19/2023 5:41 AMNormalProWyandot Memorial HospitalARTERIAL BLOOD GASon 55-54-8009HBOVM'S TESTNormalProWyandot Memorial HospitalComment on above:Performed By: #### CMP, 62327-5, , CBCA #### [facility] ([id number]) [address] [place], [place] [address]IIWT,DEFICIT1.0 MMOL/LNormal0.0-2.0[facility] Comment on above:Performed By: #### CMP, 49027-4, , CBCA #### [facility] ([id number]) [address] [place], [place] [address]Scqa qehggvepopc48.6 [degF]Lmfeyb28.0[facility] Comment on above:Performed By: #### XENIA, 04992-2, , CBCA #### [facility] ([id number]) [address] [place], [place] [address]HAZ1 (Bld) [Moles/Vol]24.3 mmol/GJmcruf02-11PvnUntcxcWyandot Memorial HospitalComment on above:Performed By: #### CMP, 17758-0, , CBCA #### [facility] ([id number]) [address] [place], [place] [address]SYIP. O2 CONC.50 %NormalProWyandot Memorial HospitalComment on above:Performed By: #### CMP, 44874-9, , CBCA #### [facility] ([id number]) [address] [place], [place] [address]Fuqrqw (Bld) [Partial pressure]71 mm[Hg]Nck56-283UzjOrfpqnWyandot Memorial HospitalComment on above:Performed By: #### CMP, 56989-4, , CBCA #### [facility] ([id number]) [address] [place], [place] [address]Bluczi saturation in Blood94.0 %Normal>90ProWyandot Memorial HospitalComment on above:Performed By: #### CMP, 19373-4, , CBCA #### [facility] ([id number]) [address] [place], [place] [address]YENVSE SOURCEVentNormalProMedica Lake District HospitalComment on above:Performed By: #### XENIA, 06655-7, , CBCA #### [facility] ([id number]) [address] [place], [place] [address]BUG419.7 ZSMENhvihv90-04VqwGgykqt Lake District HospitalComment on above:Performed By: #### XENIA, 96483-7, 39045-7, CBCA #### [facility] ([id number]) [address] [place], [place] [address]gC (Bld)7.373 [pH]Normal7.350-7.450ProWyandot Memorial Hospital Comment on above:Performed By: #### XENIA, 72965-2, , CBCA #### [facility] ([id number]) [address] [place], [place] [address]DKIENE SITELRadNormalProWyandot Memorial HospitalComment on above: Performed By: #### XENIA, 81094-0, , CBCA #### [facility] ([id number]) [address] [place], [place] [address]AZDKIV TYPEARTERIALNormalProWyandot Memorial HospitalComment on above:Performed By: #### XENIA, 72889-2, , CBCA #### [facility] ([id number]) [address] [place], [place] [address]QHM AND AUTO DIFFon 33-24-6273EPRVBJFS BASOPHIL0.0 X10E9/LNormal 0.0-0.2[facility] HospitalComment on above:Performed By: #### XENIA, 83263- 0, , CBCA #### [facility] ([id number]) [address] [place], [place] [address]AYKKGRLE NEUTROPHIL2.5 X10E9/LNormal1.5-6.6[facility] HospitalComment on above:Performed By: #### XENIA, 90971-6, , CBCA #### [facility] ([id number]) [address] [facility] [place], [place] [address]Xfxojipkxgcf Ql (Bld)2+AbnormalNONEProMedica [facility] District Hospital Comment on above:Performed By: #### CMP, 29708-8, , CBCA #### [facility] ([id number]) [address] [place] [place], [place] [address]Ablladxsg/100 WBC (Bld)0.2 %NormalKettering Health Main Campus Comment on above:Performed By: #### CMP, 86393-4, , CBCA #### [facility] ([id number]) [address] [place] [place], [place] [address]Iahheldldjm (Bld) [#/Vol]0.0 10*3/uLNormal0.0-0.4[facility] CampusComment on above:Performed By: #### XENIA, 93665-9, , CBCA #### [facility] ([id number]) [address] [place] [place], [place] [address]Fhwmoaqujvy/100 WBC (Bld)0.1 %NormalKettering Health Main Campus Comment on above:Performed By: #### XENIA, 68466-1, , CBCA #### [facility] ([id number]) [address] [place] [place], [place] [address]Bbvhbadxvij distribution width (RBC) [Ratio]22.1 %High11.5-15.0 ProMProMedica Fostoria Community HospitalComment on above:Performed By: #### CMP, 02051-8, , CBCA #### [facility] ([id number]) [address] [place], [place] [address]Suawalupmf (Bld) [Volume fraction]31.1 %Kfl21-60CyyExyftmKettering Health Main CampusComment on above:Performed By: #### CMP, 26410-0, , CBCA #### [facility] ([id number]) [address] [place], [place] [address]Vxunuerlfk (Bld) [Mass/Vol]9.9 g/dLLow11.7-15.5PSamaritan HospitalComment on above:Performed By: #### XENIA, 15136-5, , CBCA #### [facility] ([id number]) [address] [place], [place] [address]Sfpoatsofzg (Bld) [#/Vol]1.2 10*3/uLNormal1.0-3.5PSamaritan HospitalComment on above:Performed By: #### CMP, 27049-7, , CBCA #### [facility] ([id number]) [address] [place], [place] [address]Mlxlyvfsmqp/100 WBC (Bld)30.6 %NormalKettering Health Main Campus Comment on above:Performed By: #### XENIA, 43563-6, , CBCA #### [facility] ([id number]) [address] [place], [place] [address]AAY (RBC) [Entitic mass]27.0 bnPxehuw54-79IdkFxwbghKettering Health Main CampusComment on above:Performed By: #### XENIA, 11239-7, , CBCA #### [facility] ([id number]) [address] [place] [place], [place] [address]CWOG (RBC) [Mass/Vol]31.8 g/gEXze40-68OfmVtgmrqKettering Health Main Campus Comment on above:Performed By: #### XENIA, 86754-0, , CBCA #### [facility] ([id number]) [address] [place], [place] [address]WQG (RBC) [Entitic vol]85 pFBjyaax59-715EpuMrbmviKettering Health Main CampusComment on above:Performed By: #### CMP, 57086-2, 38017-9, CBCA #### [facility] ([id number]) [address] [place], [place] [address]Zrowsmica (Bld) [#/Vol]0.3 10*3/uLNormal0-0.9ProWyandot Memorial HospitalComment on above:Performed By: #### CMP, 47221-5, , CBCA #### [facility] ([id number]) [address] [place] [place], [place] [address]Ecvobzkja/100 WBC (Bld)7.4 %NormalKettering Health Main Campus Comment on above:Performed By: #### CMP, 76543-2, 39010-8, CBCA #### [facility] ([id number]) [address] [facility] [place], [place] [address]Ktqqryqvqiy/100 WBC (Bld)61.7 %NormalKettering Health Main Campus Comment on above:Performed By: #### CMP, 74732-5, , CBCA #### [facility] ([id number]) [address] [facility] [place], [place] [address]Zepovtoy mean volume (Bld) [Entitic vol]7.5 fLNormal7-12 ProMedicLima City HospitalComment on above:Performed By: #### CMP, 39920-0, , CBCA #### [facility] ([id number]) [address] [facility] [place], [place] [address]Sgxuvpgye (Bld) [#/Vol]317 10*3/rJBkjfjz179-972RwcMsxlrt [facility] HospitalComment on above:Performed By: #### CMP, 33575-9, , CBCA #### [facility] ([id number]) [address] [place], [place] [address]FJE COUNT3.65 X10E12/LLow3.80-5.20[facility] Comment on above:Performed By: #### CMP, 16029-1, 94926-1, CBCA #### [facility] ([id number]) [address] [place], [place] [address]TOC (Bld) [#/Vol]4.0 10*3/uLNormal4.0-11.0ProWyandot Memorial HospitalComment on above:Performed By: #### CMP, 38048-3, 75356-3, CBCA #### [facility] ([id number]) [address] [place], [place] [address]LQEXRPFDNDIVA METABOLIC PANELon 45-01-4867Avulmnl [Mass/Vol]2.4 g/dLLow3.2-5.3ProMedOhioHealth Grady Memorial Hospital HospitalComment on above:Performed By: #### CMP, 35233-2, 72846-1, CBCA #### [facility] ([id number]) [address] [place], [place] [address]RPV [Catalytic activity/Vol]64 U/YWrqllk29-701PhmXtmanx [facility] HospitalComment on above:Performed By: #### XENIA, 50566-2, , CBCA #### [facility] ([id number]) [address] [place], [place] [address]VJG [Catalytic activity/Vol]18 U/LNormal0-31ProMedOhioHealth Grady Memorial Hospital HospitalComment on above:Performed By: #### XENIA, 38164-4, , CBCA #### [facility] ([id number]) [address] [place], [place] [address]Bkdru gap [Moles/Vol]7 mmol/LNormal5-15ProGe[facility]al [facility] HospitalComment on above:Performed By: #### CMP, 78517-2, 90757-6, CBCA #### [facility] ([id number]) [address] [place], [place] [address]YMO [Catalytic activity/Vol]20 U/LNormal0-41ProGeorgetown Behavioral Hospital HospitalComment on above:Performed By: #### CMP, 71448-7, 10940-9, CBCA #### [facility] ([id number]) [address] [place], [place] [address]Wczvabnta [Mass/Vol]0.4 mg/dLNormal0.3-1.2PCleveland Clinic [facility]ron General HospitalComment on above:Performed By: #### CMP, 39450-4, 98591-9, CBCA #### [facility] ([id number]) [address] [place], [place] [address]Ogngzuz [Mass/Vol]7.0 mg/dLLow8.5-10.5PSamaritan Hospital Comment on above:Performed By: #### XENIA, 38853-7, , CBCA #### [facility] ([id number]) [address] [place], [place] [address]Arnimdwb [Moles/Vol]114 mmol/WBlxm28-154UmeVpudgiKettering Health Main CampusComment on above:Performed By: #### XENIA, 49638-5, , CBCA #### [facility] ([id number]) [address] [place], [place] [address]XV6 [Moles/Vol]25 mmol/LZmxlfs94-00OmeNwgwoqSamaritan Hospital Comment on above:Performed By: #### XENIA, 74573-0, , CBCA #### [facility] ([id number]) [address] [place], [place] [address]Gcheqebssz [Mass/Vol]0.83 mg/dLNormal0.40-1.00[facility] CampusComment on above:Result Comment: METHOD TRACEABLE TO IDMS STANDARD Performed By: #### XENIA, 48712-9, , CBCA #### [facility] ([id number]) [address] [place], [place] [address]JNO/1.73 sq M.predicted among non-blacks MDRD (S/P/Bld) [Vol rate/Area]81 mL/min/{1.73_m2}Normal>59ProWyandot Memorial HospitalComment on above:Result Comment: Reported eGFR is based on the CKD-EPI 2020 equation that does not use a race coefficient.Performed By: #### XENIA, 34021-1, , CBCA #### [facility] ([id number]) [address] [place], [place] [address]Gprjoan [Mass/Vol]100 mg/jZTxjz41-39QwxLanccuKettering Health Main Campus Comment on above:Performed By: #### XENIA, 32551-4, , CBCA #### [facility] ([id number]) [address] [place], [place] [address]Adeehxuyd [Moles/Vol]4.7 mmol/LNormal3.5-5.0ProWyandot Memorial HospitalComment on above:Performed By: #### XENIA, 86568-6, , CBCA #### [facility] ([id number]) [address] [place], [place] [address]Vryxewt [Mass/Vol]6.4 g/dLNormal6.0-8.0ProWyandot Memorial HospitalComment on above:Performed By: #### XENIA, 17302-1, , CBCA #### [facility] ([id number]) [address] [place], [place] [address]Thybah [Moles/Vol]146 mmol/RVikmju547-539AkrEdgvtk [facility] HospitalComment on above:Performed By: #### XENIA, 37392-6, , CBCA #### [facility] ([id number]) [address] [place], [place] [address]Iujd nitrogen [Mass/Vol]12 mg/dLNormal5-23ProWyandot Memorial HospitalComment on above:Performed By: #### XENIA, 22590-1, , CBCA #### [facility] ([id number]) [address] [place], [place] [address]Haswiwz.ionized (Bld) [Moles/Vol]on 60-49-4090NAQRTOYB ICA4.8 mg/dLNormal4.5-5.3Pro[facility]ica [facility] District HospitalComment on above:Performed By: #### XENIA, 08477-7, , CBCA #### [facility] ([id number]) [address] [place], [place] [address]Wbewxnr Glucometer (BldC) [Mass/Vol]on 52-55-8547Wemlgrx [Mass/Vol]126 mg/fUUgvu02-87PebTggjqqWyandot Memorial HospitalGlucose [Mass/Vol]94 mg/dL Rvbnny03-34SikDmdpmtWyandot Memorial HospitalGlucose [Mass/Vol]104 mg/zIHcnx90-37 [facility] District HospitalXR CHEST 1 VWon 64-33-9930DX CHEST 1 VWXR CHEST 1 VW Single view chest History: Difficulty breathing, shortness of breath. Covid positive. Comparison: 04/17/2023 Findings: Similar loop configuration left IJ catheter. Similar ET tube. Partially imaged enteric tube. Mediansternotomy. Stable enlarged cardiac silhouette. Bandlike opacity right lower lobe, likely atelectatic. Small effusions. No measurable pneumothorax. Right costophrenic angle excluded from aalfx-sr-ohsz. Impression: 1. Persistent effusions, with or without underlying pneumonia. 2. Looped configuration left IJ catheter and correlate with function. Finalized by Victor Hugo Gustafson MD on 04/18/2023 5:44 AMNormalKettering Health Main CampusARTERIAL BLOOD GASon 14-04-4414ULUOR'S TESTPassNormalKettering Health Main CampusComment on above:Performed By: #### XENIA, 19457-0, , CBCA #### [facility] ([id number]) [address] [place], [place] [address]KGUA,DEFICIT1.0 MMOL/LNormal0.0-2.0[facility] Comment on above:Performed By: #### XENIA, 94471-3, 37152-9, CBCA #### [facility] ([id number]) [address] [place] [address]Mppy iatpcyxgbwc33.6 [degF]Nkcjbo24.0[facility] Comment on above:Performed By: #### XENIA, 67705-5, 20159-9, CBCA #### [facility] ([id number]) [address] [place], [place] [address]TYO3 (Bld) [Moles/Vol]24.3 mmol/XAkxmkd43-15WruVbhdihKettering Health Main CampusComment on above:Performed By: #### XENIA, 35547-3, 06190-1, CBCA #### [facility] ([id number]) [address] [place], [place] [address]CIEM. O2 CONC.50 %NormalProWyandot Memorial HospitalComment on above:Performed By: #### CMP, 08372-6, 14064-0, CBCA #### [facility] ([id number]) [address] [place], [place] [address]Abdyjo (Bld) [Partial pressure]73 mm[Hg]Yca19-575DrwRhxomtWyandot Memorial HospitalComment on above:Performed By: #### CMP, 80048-9, 23735-1, CBCA #### [facility] ([id number]) [address] [place], [place] [address]Pvzpoq saturation in Blood94.0 %Normal>90ProWyandot Memorial HospitalComment on above:Performed By: #### CMP, 98958-4, 56392-3, CBCA #### [facility] ([id number]) [address] [place], [place] [address]BHCPZI SOURCEVentNormalKettering Health Main CampusComment on above:Performed By: #### CMP, 10406-0, 83783-6, CBCA #### [facility] ([id number]) [address] [place], [place] [address]AOA408.9 KMCDTidnvc52-81OccOqmjcm [facility] HospitalComment on above:Performed By: #### CMP, 63814-2, 88775-6, CBCA #### [facility] ([id number]) [address] [place], [place] [address]aE (Bld)7.342 [pH]Low7.350-7.450ProW[facility]andot Memorial Hospital Comment on above:Performed By: #### CMP, 67921-9, 57394-1, CBCA #### [facility] ([id number]) [address] [place], [place] [address]MNTFQK SITERRadNormalKettering Health Main CampusComment on above: Performed By: #### CMP, 36883-3, 08510-5, CBCA #### [facility] ([id number]) [address] [place], [place] [address]ROQROT TYPEARTERIALNormalProWyandot Memorial HospitalComment on above:Performed By: #### XENIA, 76669-7, 94959-3, CBCA #### [facility] ([id number]) [address] [place], [place] [address]ZAKQQ METABOLIC PANLon 63-86-8473Uqzwb gap [Moles/Vol]8 mmol/L Normal5-15[facility] CampusComment on above:Performed By: #### XENIA, 71251-2, , CBCA #### [facility] ([id number]) [address] [place], [place] [address]Gxaiume [Mass/Vol]8.3 mg/dLLow8.5-10.5PSamaritan Hospital Comment on above:Performed By: #### XENIA, 06602-5, 81896-8, CBCA #### [facility] ([id number]) [address] [place], [place] [address]Ymchrsvi [Moles/Vol]114 mmol/HPbvp20-971DjqQuvxbuKettering Health Main CampusComment on above:Performed By: #### XENIA, 12002-6, , CBCA #### [facility] ([id number]) [address] [place], [place] [address]TY3 [Moles/Vol]23 mmol/ZSkzavk29-97AihZuseqhSamaritan Hospital Comment on above:Performed By: #### XENIA, 52515-3, , CBCA #### [facility] ([id number]) [address] [place], [place] [address]Rmvzvlxxet [Mass/Vol]0.96 mg/dLNormal0.40-1.00[facility] CampusComment on above:Result Comment: METHOD TRACEABLE TO IDMS STANDARD Performed By: #### XENIA, 54543-9, , CBCA #### [facility] ([id number]) [address] [place], [place] [address]NLH/1.73 sq M.predicted among non-blacks MDRD (S/P/Bld) [Vol rate/Area]68 mL/min/{1.73_m2}Normal>59ProWyandot Memorial HospitalComment on above:Result Comment: Reported eGFR is based on the CKD-EPI 2020 equation that does not use a race coefficient.Performed By: #### XENIA, 73252-2, , CBCA #### [facility] ([id number]) [address] [place], [place] [address]Nznbizz [Mass/Vol]164 mg/uGIhge31-18GswLnrqjbWyandot Memorial Hospital Comment on above:Performed By: #### XENIA, 16967-2, , CBCA #### [facility] ([id number]) [address] [place], [place] [address]Tcmsuhwas [Moles/Vol]4.3 mmol/LNormal3.5-5.0ProWyandot Memorial HospitalComment on above:Performed By: #### XENIA, 17401-1, , CBCA #### [facility] ([id number]) [address] [place], [place] [address]Dsqhwr [Moles/Vol]145 mmol/SWoqclb267-902NtlAzwpvu [facility] HospitalComment on above:Performed By: #### XENIA, 70516-0, , CBCA #### [facility] ([id number]) [address] [place], [place] [address]Qjqo nitrogen [Mass/Vol]11 mg/dLNormal5-23ProWyandot Memorial HospitalComment on above:Performed By: #### XENIA, 10127-8, , CBCA #### [facility] ([id number]) [address] [place], [place] [address]MBV AND AUTO DIFFon 44-26-2715XEYIVGFO BASOPHIL0.0 X10E9/LNormal 0.0-0.2ProMedOhioHealth Grove City Methodist HospitalComment on above:Performed By: #### XENIA, 19893- 0, , CBCA #### [facility] ([id number]) [address] [place], [place] [address]PENWECSU NEUTROPHIL2.3 X10E9/LNormal1.5-6.6K[facility] CampusComment on above:Performed By: #### XENIA, 07543-3, , CBCA #### [facility] ([id number]) [address] [place], [place] [address]Cbgoiiyhqxzs Ql (Bld)2+AbnormalNONEProMedica [facility] Hospital Comment on above:Performed By: #### XENIA, 56927-5, , CBCA #### [facility] ([id number]) [address] [facility] [place], [place] [address]Mirpdkkmj/100 WBC (Bld)0.3 %NormalKettering Health Main Campus Comment on above:Performed By: #### XENIA, 71109-2, , CBCA #### [facility] ([id number]) [address] [facility] [place], [place] [address]Yaghhubpxdf (Bld) [#/Vol]0.0 10*3/uLNormal0.0-0.4ProWyandot Memorial HospitalComment on above:Performed By: #### XENIA, 46656-6, , CBCA #### [facility] ([id number]) [address] [facility] [place], [place] [address]Titsutjqypt/100 WBC (Bld)0.2 %NormalKettering Health Main Campus Comment on above:Performed By: #### XENIA, 59372-9, , CBCA #### [facility] ([id number]) [address] [place], [place] [address]Yjpdzufmiba distribution width (RBC) [Ratio]22.2 %High11.5-15.0 ProMedicLima City HospitalComment on above:Performed By: #### XENIA, 94196-7, , CBCA #### [facility] ([id number]) [address] [place], [place] [address]Kztfgsyuqj (Bld) [Volume fraction]30.6 %Hac61-01DkmUqelzmWyandot Memorial HospitalComment on above:Performed By: #### CMP, 66462-8, , CBCA #### [facility] ([id number]) [address] [facility] [place], [place] [address]Rcmwqjebfg (Bld) [Mass/Vol]9.9 g/dLLow11.7-15.5PSamaritan HospitalComment on above:Performed By: #### CMP, 91247-8, , CBCA #### [facility] ([id number]) [address] [facility] [place], [place] [address]Zmxrshlditm (Bld) [#/Vol]1.0 10*3/uLNormal1.0-3.5PSamaritan HospitalComment on above:Performed By: #### CMP, 80650-6, , CBCA #### [facility] ([id number]) [address] [facility] [place], [place] [address]Xgdyaodrevu/100 WBC (Bld)29.2 %NormalProWyandot Memorial Hospital Comment on above:Performed By: #### CMP, 02062-6, , CBCA #### [facility] ([id number]) [address] [facility] [place], [place] [address]SIS (RBC) [Entitic mass]27.8 plWbawyw74-65TvcMscuzyWyandot Memorial HospitalComment on above:Performed By: #### CMP, 97221-1, , CBCA #### [facility] ([id number]) [address] [facility] [place], [place] [address]SHIF (RBC) [Mass/Vol]32.5 g/kUYcgbsm38-93SxbWhdtnmWyandot Memorial HospitalComment on above:Performed By: #### CMP, 56922-1, , CBCA #### [facility] ([id number]) [address] [facility] [place], [place] [address]HVE (RBC) [Entitic vol]86 yETayvns38-483JhuNuqfix Baypark HospitalComment on above:Performed By: #### CMP, 74500-2, , CBCA #### [facility] ([id number]) [address] [place], [place] [address]Kikctjtug (Bld) [#/Vol]0.2 10*3/uLNormal0-0.9[facility] Main CampusComment on above:Performed By: #### CMP, 18418-9, 19289-2, CBCA #### [facility] ([id number]) [address] [place], [place] [address]Jcwxhtkyu/100 WBC (Bld)5.8 %NormalKettering Health Main Campus Comment on above:Performed By: #### CMP, 44840-6, 35211-4, CBCA #### [facility] ([id number]) [address] [place], [place] [address]Xpogdqmuvwk/100 WBC (Bld)64.5 %NormalKettering Health Main Campus Comment on above:Performed By: #### CMP, 92105-1, 17932-1, CBCA #### [facility] ([id number]) [address] [place], [place] [address]Wmwvnned mean volume (Bld) [Entitic vol]7.7 fLNormal7-12 [facility] CampusComment on above:Performed By: #### CMP, 97060-5, , CBCA #### [facility] ([id number]) [address] [place], [place] [address]Xcbbokwdd (Bld) [#/Vol]295 10*3/fCGuyiav244-057VkoPuubjj Baypark HospitalComment on above:Performed By: #### CMP, 94897-7, 99057-5, CBCA #### [facility] ([id number]) [address] [place], [place] [address]XBN COUNT3.57 X10E12/LLow3.80-5.20[facility] Comment on above:Performed By: #### CMP, 36141-0, 35584-6, CBCA #### [facility] ([id number]) [address] [place], [place] [address]FMT (Bld) [#/Vol]3.6 10*3/uLLow4.0-11.0ProWyandot Memorial HospitalComment on above:Performed By: #### XENIA, 43419-3, , CBCA #### [facility] ([id number]) [address] [place], [place] [address]MZHDWWLD BASOPHIL0.0 X10E9/LNormal0.0-0.2PSamaritan HospitalComment on above:Performed By: #### CMP, 62773-4, , CBCA #### [facility] ([id number]) [address] [place], [place] [address]HWUUEGLE NEUTROPHIL2.1 X10E9/LNormal1.5-6.6ProWyandot Memorial HospitalComment on above:Performed By: #### XENIA, 03238-2, , CBCA #### [facility] ([id number]) [address] [place], [place] [address]Chjirfzozgez Ql (Bld)2+AbnormalNONEPSamaritan Hospital Comment on above:Performed By: #### XENIA, 84992-7, , CBCA #### [facility] ([id number]) [address] [place], [place] [address]Jtdtxvgeb/100 WBC (Bld)0.3 %NormalKettering Health Main Campus Comment on above:Performed By: #### XENIA, 88247-4, , CBCA #### [facility] ([id number]) [address] [place], [place] [address]Fzhwtjhdoox (Bld) [#/Vol]0.0 10*3/uLNormal0.0-0.4ProWyandot Memorial HospitalComment on above:Performed By: #### CMP, 15521-4, , CBCA #### [facility] ([id number]) [address] [place], [place] [address]Hxloyjosnii/100 WBC (Bld)0.1 %NormalKettering Health Main Campus Comment on above:Performed By: #### CMP, 68795-9, , CBCA #### [facility] ([id number]) [address] [place], [place] [address]Glthcaiqhht distribution width (RBC) [Ratio]22.0 %High11.5-15.0 ProMedicLima City HospitalComment on above:Performed By: #### CMP, 29103-8, 75987-9, CBCA #### [facility] ([id number]) [address] [place], [place] [address]Dknvskjogp (Bld) [Volume fraction]31.4 %Fza43-00HoyIqvmvnWyandot Memorial HospitalComment on above:Performed By: #### CMP, 60637-4, , CBCA #### [facility] ([id number]) [address] [place], [place] [address]Ixkurbpaki (Bld) [Mass/Vol]10.2 g/dLLow11.7-15.5PSamaritan HospitalComment on above:Performed By: #### [facility], 80353-8, , CBCA #### [facility] ([id number]) [address] [place], [place] [address]Tnncwinxlig (Bld) [#/Vol]0.9 10*3/uLLow1.0-3.5PSamaritan HospitalComment on above:Performed By: #### CMP, 70196-2, , CBCA #### [facility] ([id number]) [address] [place], [place] [address]Qdsnmwwmasf/100 WBC (Bld)28.7 %NormalKettering Health Main Campus Comment on above:Performed By: #### CMP, 31362-8, , CBCA #### [facility] ([id number]) [address] [place], [place] [address]MNT (RBC) [Entitic mass]27.4 azXznouc46-81VqdWoasuyWyandot Memorial HospitalComment on above:Performed By: #### CMP, 92797-1, 33157-6, CBCA #### [facility] ([id number]) [address] [place], [place] [address]NXZZ (RBC) [Mass/Vol]32.4 g/xTMqapfw88-86PrzYftlnwWyandot Memorial HospitalComment on above:Performed By: #### CMP, 19928-7, 61099-7, CBCA #### [facility] ([id number]) [address] [place], [place] [address]RLE (RBC) [Entitic vol]84 oOSgfwmf52-405CryOasvjo Baypark HospitalComment on above:Performed By: #### CMP, 90026-1, , CBCA #### [facility] ([id number]) [address] [place], [place] [address]Muapnpejo (Bld) [#/Vol]0.2 10*3/uLNormal0-0.9K[facility]tering Health Main CampusComment on above:Performed By: #### CMP, 04501-9, , CBCA #### [facility] ([id number]) [address] [place], [place] [address]Sxrequebv/100 WBC (Bld)6.9 %[facility] Comment on above:Performed By: #### CMP, 98469-9, 78369-4, CBCA #### [facility] ([id number]) [address] [place], [place] [address]Mgyopsyaymn/100 WBC (Bld)64.0 %[facility] Comment on above:Performed By: #### CMP, 66120-7, 76083-1, CBCA #### [facility] ([id number]) [address] [place], [place] [address]Uzyjqzzk mean volume (Bld) [Entitic vol]7.8 fLNormal7-12 ProMedicLima City HospitalComment on above:Performed By: #### CMP, 37195-8, 84451-7, CBCA #### [facility] ([id number]) [address] [place], [place] [address]Wflqpvfwx (Bld) [#/Vol]301 10*3/iWYeumsb155-328HggCwspjh [facility] HospitalComment on above:Performed By: #### XENIA, 51272-1, 17984-0, CBCA #### [facility] ([id number]) [address] [place], [place] [address]LOP COUNT3.72 X10E12/LLow3.80-5.20ProWyandot Memorial Hospital Comment on above:Performed By: #### XENIA, 03385-9, 07432-0, CBCA #### [facility] ([id number]) [address] [place], [place] [address]IXJ (Bld) [#/Vol]3.3 10*3/uLLow4.0-11.0ProWyandot Memorial HospitalComment on above:Performed By: #### XENIA, 84081-3, , CBCA #### [facility] ([id number]) [address] [place], [place] [address]NQMBTIZHZASTA METABOLIC PANELon 61-09-4442Ybxumjw [Mass/Vol]2.5 g/dLLow3.2-5.3PSamaritan HospitalComment on above:Performed By: #### XENIA, 89988-5, , CBCA #### [facility] ([id number]) [address] [place], [place] [address]WBV [Catalytic activity/Vol]68 U/FUuduri51-919KhuUwzkdkWyandot Memorial HospitalComment on above:Performed By: #### XENIA, 75848-4, 44666-4, CBCA #### [facility] ([id number]) [address] [place], [place] [address]DCW [Catalytic activity/Vol]21 U/LNormal0-31PSamaritan HospitalComment on above:Performed By: #### XENIA, 17108-8, 24251-0, CBCA #### [facility] ([id number]) [address] [place], [place] [address]Rqnow gap [Moles/Vol]5 mmol/LNormal5-15K[facility] Health Main CampusComment on above:Performed By: #### XENIA, 48277-7, , CBCA #### [facility] ([id number]) [address] [place], [place] [address]CCW [Catalytic activity/Vol]26 U/LNormal0-41ProWyandot Memorial HospitalComment on above:Performed By: #### XENIA, 24283-7, , CBCA #### [facility] ([id number]) [address] [place], [place] [address]Nnifpcknx [Mass/Vol]0.5 mg/dLNormal0.3-1.2PSamaritan HospitalComment on above:Performed By: #### XENIA, 63152-7, , CBCA #### [facility] ([id number]) [address] [place], [place] [address]Pguptug [Mass/Vol]8.2 mg/dLLow8.5-10.5PSamaritan Hospital Comment on above:Performed By: #### XENIA, 04379-9, , CBCA #### [facility] ([id number]) [address] [place], [place] [address]Tzibusap [Moles/Vol]116 mmol/HYzxf78-079XxfXugknoWyandot Memorial HospitalComment on above:Performed By: #### XENIA, 62169-9, , CBCA #### [facility] ([id number]) [address] [place], [place] [address]HP4 [Moles/Vol]25 mmol/VCsgkrq54-99DmcKokvrmSamaritan Hospital Comment on above:Performed By: #### XENIA, 61754-6, , CBCA #### [facility] ([id number]) [address] [place], [place] [address]Qshumbqwql [Mass/Vol]0.92 mg/dLNormal0.40-1.00ProWyandot Memorial HospitalComment on above:Result Comment: METHOD TRACEABLE TO IDMS STANDARD Performed By: #### XENIA, 82673-8, , CBCA #### [facility] ([id number]) [address] [place], [place] [address]DXV/1.73 sq M.predicted among non-blacks MDRD (S/P/Bld) [Vol rate/Area]71 mL/min/{1.73_m2}Normal>59ProWyandot Memorial HospitalComment on above:Result Comment: Reported eGFR is based on the CKD-EPI 2020 equation that does not use a race coefficient.Performed By: #### XENIA, 92083-8, , CBCA #### [facility] ([id number]) [address] [place], [place] [address]Ibujtxd [Mass/Vol]109 mg/mKBanx36-19KnfZwdnmvKettering Health Main Campus Comment on above:Performed By: #### XENIA, 16562-4, , CBCA #### [facility] ([id number]) [address] [place], [place] [address]Whuhumqse [Moles/Vol]3.6 mmol/LNormal3.5-5.0K[facility] CampusComment on above:Performed By: #### XENIA, 66772-4, , CBCA #### [facility] ([id number]) [address] [place], [place] [address]Gipaief [Mass/Vol]6.6 g/dLNormal6.0-8.0K[facility] CampusComment on above:Performed By: #### XENIA, 65837-7, , CBCA #### [facility] ([id number]) [address] [place], [place] [address]Rnfxru [Moles/Vol]146 mmol/GToaofy534-380LinGbfdbb [facility] HospitalComment on above:Performed By: #### XENIA, 23885-0, , CBCA #### [facility] ([id number]) [address] [place], [place] [address]Ynuj nitrogen [Mass/Vol]10 mg/dLNormal5-23ProWyandot Memorial HospitalComment on above:Performed By: #### XENIA, 40752-1, , CBCA #### [facility] ([id number]) [address] [place], [place] [address]Lcqhiws.ionized (Bld) [Moles/Vol]on 74-92-1344QNNFIREH ICA4.8 mg/dLNormal4.5-5.3ProMedica Lake District HospitalComment on above:Performed By: #### XENIA, 22020-5, , CBCA #### [facility] ([id number]) [address] [place], [place] [address]Npjkhrm Glucometer (BldC) [Mass/Vol]on 00-84-4832Ojvfeby [Mass/Vol]111 mg/pBAtnq68-59KvtBovvjxWyandot Memorial HospitalGlucose [Mass/Vol]105 mg/tKFpcq08-62GiwSvnajdWyandot Memorial HospitalMAGNESIUMon 72-45-5195Vowzboiaq [Mass/Vol]2.4 mg/dLNormal1.8-2.6ProWyandot Memorial HospitalComment on above: Performed By: #### XENIA, 91293-2, , CBCA #### [facility] ([id number]) [address] [facility] [place], [place] [address]Waeoyampr [Mass/Vol]2.5 mg/dLNormal1.8-2.6ProWyandot Memorial HospitalComment on above:Performed By: #### XENIA, 87195-0, , CBCA #### [facility] ([id number]) [address] [place], [place] [address]ZHFEBLXPSJpn 31-55-8580Pxoikuqak [Mass/Vol]2.5 mg/dLNormal 2.4-4.9ProWyandot Memorial HospitalComment on above:Performed By: #### XENIA, 11045- 0, , CBCA #### [facility] ([id number]) [address] [place], [place] [address]RWXIQFCYLmp 03-48-1088Htcnltxcq [Moles/Vol]3.9 mmol/LNormal 3.5-5.0K[facility] Health Main CampusComment on above:Performed By: #### XENIA, 54129- 0, 95657-6, CBCA #### [facility] ([id number]) [address] [place], [place] [address]AJ CHEST 1 VWon 68-04-7780JA CHEST 1 VWXR CHEST 1 VW CHEST 1 VIEW HISTORY: Acute respiratory failure COMPARISON: 04/16/2023 FINDINGS: Stable lines and tubes. Mild pulmonary vascular congestion/edema. Bibasilar opacities may representatelectasis or pneumonia, improved. No pleural effusions or pneumothorax. IMPRESSION: * Improved bibasilar opacities. No other significant change. Finalized by Dharmesh Graves MD on 04/17/2023 5:44 AMNormalKettering Health Main CampusARTERIAL BLOOD GASon 88-62-9662ZXUVZ'S TESTPassNormalKettering Health Main CampusComment on above:Performed By: #### XENIA, 21955-6, 99930-2, CBCA #### [facility] ([id number]) [address] [place], [place] [address]SQZJ,DEFICIT3.0 MMOL/LHigh0.0-2.0[facility] Comment on above:Performed By: #### XENIA, 49557-0, 06324-9, CBCA #### [facility] ([id number]) [address] [place], [place] [address]Tgqn gxipdfxhtnd11.6 [degF]Wjkhwy75.0[facility] Comment on above:Performed By: #### XENIA, 72729-3, 89863-4, CBCA #### [facility] ([id number]) [address] [place], [place] [address]BYJ5 (Bld) [Moles/Vol]22.9 mmol/DTuvrcy79-64HyfMrfjbwWyandot Memorial HospitalComment on above:Performed By: #### XENIA, 36942-3, 98630-1, CBCA #### [facility] ([id number]) [address] [place], [place] [address]XOZY. O2 CONC.60 %NormalProWyandot Memorial HospitalComment on above:Performed By: #### CMP, 19799-9, 77348-0, CBCA #### [facility] ([id number]) [address] [place], [place] [address]Ohsuzs (Bld) [Partial pressure]76 mm[Hg]Ggn65-796UkaUyxvhh [facility] HospitalComment on above:Performed By: #### CMP, 28005-0, 30354-5, CBCA #### [facility] ([id number]) [address] [place], [place] [address]Hdtliz saturation in Blood94.0 %Normal>90ProWyandot Memorial HospitalComment on above:Performed By: #### CMP, 26442-8, 79745-9, CBCA #### [facility] ([id number]) [address] [place], [place] [address]FHBZXX SOURCEVentNormalProWyandot Memorial HospitalComment on above:Performed By: #### CMP, 32479-4, 80732-4, CBCA #### [facility] ([id number]) [address] [place], [place] [address]TOZ120.7 DNPRBevpxj74-47TozKqwflh [facility] HospitalComment on above:Performed By: #### CMP, 83043-6, 00556-3, CBCA #### [facility] ([id number]) [address] [place], [place] [address]gX (Bld)7.336 [pH]Low7.350-7.450ProWyandot Memorial Hospital Comment on above:Performed By: #### CMP, 22457-0, 26968-3, CBCA #### [facility] ([id number]) [address] [place], [place] [address]LBNEIU SITELRadNormalProWyandot Memorial HospitalComment on above: Performed By: #### CMP, 33515-4, 90160-3, CBCA #### [facility] ([id number]) [address] [place], [place] [address]ZZWHAE TYPEARTERIALNormalProWyandot Memorial HospitalComment on above:Performed By: #### XENIA, 69571-4, , CBCA #### [facility] ([id number]) [address] [place], [place] [address]EGY AND AUTO DIFFon 52-81-4105BABAQQIY BASOPHIL0.0 X10E9/LNormal 0.0-0.2PSamaritan HospitalComment on above:Performed By: #### XENIA, 61854 0, , CBCA #### [facility] ([id number]) [address] [place], [place] [address]PCSOEYEL NEUTROPHIL3.2 X10E9/LNormal1.5-6.6K[facility] Main CampusComment on above:Performed By: #### XENIA, 37124-7, , CBCA #### [facility] ([id number]) [address] [place], [place] [address]Ogozsyqkospy Ql (Bld)2+AbnormalNONEPSamaritan Hospital Comment on above:Performed By: #### XENIA, 86409-9, , CBCA #### [facility] ([id number]) [address] [place], [place] [address]Bouchhcck/100 WBC (Bld)0.2 %NormalKettering Health Main Campus Comment on above:Performed By: #### XENIA, 98353-7, , CBCA #### [facility] ([id number]) [address] [place], [place] [address]Fekbluibrzn (Bld) [#/Vol]0.0 10*3/uLNormal0.0-0.4K[facility] Health Main CampusComment on above:Performed By: #### XENIA, 79814-8, , CBCA #### [facility] ([id number]) [address] [place], [place] [address]Oqxkrsjxonl/100 WBC (Bld)0.0 %[facility] Comment on above:Performed By: #### CMP, 81893-1, , CBCA #### [facility] ([id number]) [address] [facility] [facility] [place], [place] [address]Kpyneovtmiw distribution width (RBC) [Ratio]22.0 %High11.5-15.0 ProMProMedica Fostoria Community HospitalComment on above:Performed By: #### CMP, 44395-0, , CBCA #### [facility] ([id number]) [address] [facility] [place], [place] [address]Dmxfkfxwhi (Bld) [Volume fraction]27.6 %Pjb84-59XkkVqrwtwWyandot Memorial HospitalComment on above:Performed By: #### XENIA, 18175-8, , CBCA #### [facility] ([id number]) [address] [facility] [place], [place] [address]Tyveokskjn (Bld) [Mass/Vol]8.8 g/dLLow11.7-15.5PSamaritan HospitalComment on above:Performed By: #### CMP, 81784-3, , CBCA #### [facility] ([id number]) [address] [place], [place] [address]Eccewovhagq (Bld) [#/Vol]0.7 10*3/uLLow1.0-3.5PSamaritan HospitalComment on above:Performed By: #### CMP, 70878-5, , CBCA #### [facility] ([id number]) [address] [facility] [place], [place] [address]Ogsqtzrrcjk/100 WBC (Bld)17.8 %NormalKettering Health Main Campus Comment on above:Performed By: #### CMP, 29365-7, , CBCA #### [facility] ([id number]) [address] [facility] [facility] [place], [place] [address]ZGT (RBC) [Entitic mass]27.3 zbVycixk20-47CxnLgiksvWyandot Memorial HospitalComment on above:Performed By: #### CMP, 63820-0, 45112-1, CBCA #### [facility] ([id number]) [address] [place], [place] [address]MJRQ (RBC) [Mass/Vol]31.9 g/wJJwm01-71AunCxdqtpKettering Health Main Campus Comment on above:Performed By: #### CMP, 78039-7, 02057-6, CBCA #### [facility] ([id number]) [address] [place], [place] [address]AGP (RBC) [Entitic vol]86 oMPbsgqf93-524ZaxZnqjsz [facility] HospitalComment on above:Performed By: #### CMP, 12872-3, 09802-2, CBCA #### [facility] ([id number]) [address] [place], [place] [address]Vrpuysibz (Bld) [#/Vol]0.2 10*3/uLNormal0-0.9K[facility] Health Main CampusComment on above:Performed By: #### CMP, 45260-5, , CBCA #### [facility] ([id number]) [address] [place], [place] [address]Jqlzddjuj/100 WBC (Bld)4.7 %[facility] Comment on above:Performed By: #### CMP, 64160-1, 59708-2, CBCA #### [facility] ([id number]) [address] [place], [place] [address]Ynicsxoxixm/100 WBC (Bld)77.3 %[facility] Comment on above:Performed By: #### CMP, 61101-3, 50866-7, CBCA #### [facility] ([id number]) [address] [place], [place] [address]Upaqowas mean volume (Bld) [Entitic vol]7.6 fLNormal7-12 ProMProMedica Fostoria Community HospitalComment on above:Performed By: #### CMP, 69701-3, 16842-8, CBCA #### [facility] ([id number]) [address] [place], [place] [address]Uyllchlyo (Bld) [#/Vol]248 10*3/nPKptuta710-286KtwRvdjhx [facility] HospitalComment on above:Performed By: #### XENIA, 16482-0, , CBCA #### [facility] ([id number]) [address] [place], [place] [address]WTV COUNT3.22 X10E12/LLow3.80-5.20ProWyandot Memorial Hospital Comment on above:Performed By: #### XENIA, 97358-6, 26797-6, CBCA #### [facility] ([id number]) [address] [place], [place] [address]FIE (Bld) [#/Vol]4.2 10*3/uLNormal4.0-11.0ProWyandot Memorial HospitalComment on above:Performed By: #### XENIA, 98515-4, , CBCA #### [facility] ([id number]) [address] [place], [place] [address]KKKAUXTTLQUOZ METABOLIC PANELon 65-69-8536Njrwwtw [Mass/Vol]2.4 g/dLLow3.2-5.3PSamaritan HospitalComment on above:Performed By: #### XENIA, 39373-9, , CBCA #### [facility] ([id number]) [address] [place], [place] [address]ANB [Catalytic activity/Vol]61 U/BGdjgym88-399LjwPvpvmsWyandot Memorial HospitalComment on above:Performed By: #### XENIA, 32104-7, 98859-7, CBCA #### [facility] ([id number]) [address] [place], [place] [address]KRG [Catalytic activity/Vol]20 U/LNormal0-31PSamaritan HospitalComment on above:Performed By: #### XENIA, 19062-0, 62268-9, CBCA #### [facility] ([id number]) [address] [place], [place] [address]Siesv gap [Moles/Vol]6 mmol/LNormal5-15ProWyandot Memorial HospitalComment on above:Performed By: #### XENIA, 35602-0, , CBCA #### [facility] ([id number]) [address] [facility] [place], [place] [address]LAS [Catalytic activity/Vol]25 U/LNormal0-41K[facility] CampusComment on above:Performed By: #### XENIA, 04374-7, , CBCA #### [facility] ([id number]) [address] [facility] [place], [place] [address]Ozfqsmciv [Mass/Vol]0.6 mg/dLNormal0.3-1.2PSamaritan HospitalComment on above:Performed By: #### XENIA, 47865-3, , CBCA #### [facility] ([id number]) [address] [place], [place] [address]Djzajba [Mass/Vol]8.2 mg/dLLow8.5-10.5PSamaritan Hospital Comment on above:Performed By: #### XENIA, 08087-1, , CBCA #### [facility] ([id number]) [address] [place], [place] [address]Mixlingc [Moles/Vol]115 mmol/ODqmc01-934AzcWyhxfiWyandot Memorial HospitalComment on above:Performed By: #### XENIA, 25355-8, , CBCA #### [facility] ([id number]) [address] [place], [place] [address]TE3 [Moles/Vol]24 mmol/HBgsepm18-67OdgLpiataSamaritan Hospital Comment on above:Performed By: #### XENIA, 13486-5, , CBCA #### [facility] ([id number]) [address] [place], [place] [address]Oegbseedac [Mass/Vol]1.19 mg/dLHigh0.40-1.00ProWyandot Memorial HospitalComment on above:Result Comment: METHOD TRACEABLE TO IDMS STANDARD Performed By: #### XENIA, 87651-1, , CBCA #### [facility] ([id number]) [address] [place], [place] [address]AIR/1.73 sq M.predicted among non-blacks MDRD (S/P/Bld) [Vol rate/Area]52 mL/min/{1.73_m2}Low>59ProWyandot Memorial HospitalComment on above: Result Comment: Reported eGFR is based on the CKD-EPI 2020 equation that does not use a race coefficient.Performed By: #### XENIA, 71983-1, , CBCA #### [facility] ([id number]) [address] [place], [place] [address]Ydrvdtg [Mass/Vol]95 mg/dACcmwtr08-84GwdLqbbcgKettering Health Main Campus Comment on above:Performed By: #### XENIA, 05463-7, , CBCA #### [facility] ([id number]) [address] [place], [place] [address]Yqsjttdhf [Moles/Vol]3.7 mmol/LNormal3.5-5.0ProWyandot Memorial HospitalComment on above:Performed By: #### XENIA, 18055-0, , CBCA #### [facility] ([id number]) [address] [place], [place] [address]Fejkong [Mass/Vol]6.0 g/dLNormal6.0-8.0ProWyandot Memorial HospitalComment on above:Performed By: #### XENIA, 61806-7, , CBCA #### [facility] ([id number]) [address] [place], [place] [address]Xalozo [Moles/Vol]145 mmol/GSkkynp970-406MjrGyzizu Baypark HospitalComment on above:Performed By: #### XENIA, 02805-9, , CBCA #### [facility] ([id number]) [address] [place], [place] [address]Kzmh nitrogen [Mass/Vol]8 mg/dLNormal5-23ProWyandot Memorial HospitalComment on above:Performed By: #### XENIA, 06689-1, , CBCA #### [facility] ([id number]) [address] [place], [place] [address]Bkzxdhq Glucometer (BldC) [Mass/Vol]on 78-84-2666Wdevhqm [Mass/Vol]137 mg/hWXavh44-50PplFewucwWyandot Memorial HospitalGlucose [Mass/Vol]88 mg/dL Dwqgox33-26HdfTbyilr Baypark HospitalGlucose [Mass/Vol]102 mg/tFOizp25-09 [facility] HospitalMAGNESIUMon 83-15-0979Qyqzsdeyx [Mass/Vol]2.4 mg/dL Normal1.8-2.6ProWyandot Memorial HospitalComment on above:Performed By: #### XENIA, 10798-9, , CBCA #### [facility] ([id number]) [address] [place], [place] [address]Abceivfta [Mass/Vol]1.9 mg/dLNormal1.8-2.6ProWyandot Memorial HospitalComment on above:Performed By: #### XENIA, 60376-6, , CBCA #### [facility] ([id number]) [address] [place], [place] [address]MOYIMQDMVqx 03-25-0785Cetujrmnc [Moles/Vol]4.1 mmol/LNormal 3.5-5.0ProWyandot Memorial HospitalComment on above:Performed By: #### XENIA, 57632- 0, , CBCA #### [facility] ([id number]) [address] [place], [place] [address]Gtmqkojst [Moles/Vol]3.6 mmol/LNormal3.5-5.0ProWyandot Memorial HospitalComment on above:Performed By: #### XENIA, 36566-0, , CBCA #### [facility] ([id number]) [address] [place], [place] [address]WKZHKEUUHDGCct 08-53-8653Ppthshotwzrh [Mass/Vol]262 mg/dLHigh 27-150ProWyandot Memorial HospitalComment on above:Performed By: #### CMP, 63456- 0, 05493-0, CBCA #### [facility] ([id number]) [address] [place], [place] [address]TR CHEST 1 VWon 19-78-5016RN CHEST 1 VWXR CHEST 1 VW HISTORY: [...] Francisco Javier Aceves MD on 04/16/2023 5:28 AMNormalKettering Health Main CampusARTERIAL BLOOD GASon 42-05-4533POLVL'S TESTPassNormalKettering Health Main CampusComment on above:Performed By: #### ABG #### [facility] ([id number]) [address] [place], [place] [address]GSZA,DEFICIT2.0 MMOL/LNormal0.0-2.0[facility] Comment on above:Performed By: #### ABG #### [facility] ([id number]) [address] [place], [place] [address]Udys uhuftonhgln50.6 [degF]Xzfigw48.0[facility] Comment on above:Performed By: #### ABG #### [facility] ([id number]) [address] [place], [place] [address]YVI3 (Bld) [Moles/Vol]24.5 mmol/XWytgld37-40PdkFbxeznWyandot Memorial HospitalComment on above:Performed By: #### ABG #### [facility] ([id number]) [address] [place], [place] [address]ZWCH. O2 CONC.60 %NormalProWyandot Memorial HospitalComment on above:Performed By: #### ABG #### [facility] ([id number]) [address] [place], [place] [address]Gfjpso (Bld) [Partial pressure]79 mm[Hg]Zww50-637HynRthbrtWyandot Memorial HospitalComment on above:Performed By: #### ABG #### [facility] ([id number]) [address] [place], [place] [address]Hzlsfm saturation in Blood94.0 %Normal>90ProWyandot Memorial HospitalComment on above:Performed By: #### ABG #### [facility] ([id number]) [address] [place], [place] [address]BGRCLM SOURCEVentNormalProWyandot Memorial HospitalComment on above:Performed By: #### ABG #### [facility] ([id number]) [address] [place], [place] [address]ADC170.9 IIUUQkqm31-20AuwLdazimWyandot Memorial HospitalComment on above:Performed By: #### ABG #### [facility] ([id number]) [address] [place], [place] [address]bI (Bld)7.317 [pH]Low7.350-7.450ProWyandot Memorial Hospital Comment on above:Performed By: #### ABG #### [facility] ([id number]) [address] [place], [place] [address]DXZNRW SITELRadNormalProWyandot Memorial HospitalComment on above: Performed By: #### ABG #### [facility] ([id number]) [address] [place], [place] [address]IONTOK TYPEARTERIALNormalProWyandot Memorial HospitalComment on above:Performed By: #### ABG #### [facility] ([id number]) [address] [place], [place] [address]XZQCO CULTUREon 49-16-9415Xgkajmcc identified Aer cx Nom (Bld) CULTURE RESULTS NO GROWTH 5 DAYSNormalProWyandot Memorial HospitalBacteria identified Aer cx Nom (Bld)CULTURE RESULTS NO GROWTH 5 DAYSNormalProGeorgetown Behavioral Hospital HospitalCBC AND AUTO DIFFon 04-15-2023 ABSOLUTE BASOPHIL0.0 X10E9/LNormal0.0-0.2PSamaritan HospitalComment on above:Performed By: #### XENIA, 73280-3, , CBCA #### [facility] ([id number]) [address] [facility] [place], [place] [address]AUMJEMNZ NEUTROPHIL1.9 X10E9/LNormal1.5-6.6ProWyandot Memorial HospitalComment on above:Performed By: #### XENIA, 92213-0, , CBCA #### [facility] ([id number]) [address] [facility] [place], [place] [address]Gupneamnfjqa Ql (Bld)2+AbnormalNONEPSamaritan Hospital Comment on above:Performed By: #### XENIA, 33267-1, , CBCA #### [facility] ([id number]) [address] [facility] [place], [place] [address]Erkahgruo/100 WBC (Bld)0.2 %NormalKettering Health Main Campus Comment on above:Performed By: #### XENIA, 85317-1, , CBCA #### [facility] ([id number]) [address] [facility] [place], [place] [address]Cvncwlsfknm (Bld) [#/Vol]0.0 10*3/uLNormal0.0-0.4K[facility]tering Health Main CampusComment on above:Performed By: #### XENIA, 97605-3, , CBCA #### [facility] ([id number]) [address] [facility] [place], [place] [address]Eqgiqgyuyun/100 WBC (Bld)0.0 %NormalKettering Health Main Campus Comment on above:Performed By: #### XENIA, 16138-3, , CBCA #### [facility] ([id number]) [address] [place], [place] [address]Hzznqixybxo distribution width (RBC) [Ratio]22.0 %High11.5-15.0 ProMedicLima City HospitalComment on above:Performed By: #### XNEIA, 27548-2, , CBCA #### [facility] ([id number]) [address] [place], [place] [address]Spkvoksopf (Bld) [Volume fraction]28.7 %Nyl98-52CwoIdsxezKettering Health Main CampusComment on above:Performed By: #### CMP, 92628-8, 64221-1, CBCA #### [facility] ([id number]) [address] [place], [place] [address]Luickryurk (Bld) [Mass/Vol]9.1 g/dLLow11.7-15.5PSamaritan HospitalComment on above:Performed By: #### CMP, 45365-6, , CBCA #### [facility] ([id number]) [address] [place] [place], [place] [address]Smgdwxgeyxc (Bld) [#/Vol]0.6 10*3/uLLow1.0-3.5PSamaritan HospitalComment on above:Performed By: #### CMP, 57906-2, , CBCA #### [facility] ([id number]) [address] [place] [place], [place] [address]Rtfvpunsmkb/100 WBC (Bld)22.8 %NormalKettering Health Main Campus Comment on above:Performed By: #### CMP, 34509-4, , CBCA #### [facility] ([id number]) [address] [place] [address]XKF (RBC) [Entitic mass]27.1 whFkidiq68-86CajEksxfoKettering Health Main CampusComment on above:Performed By: #### CMP, 26683-1, , CBCA #### [facility] ([id number]) [address] [place], [place] [address]EATC (RBC) [Mass/Vol]31.8 g/jVBnu03-61EpxIgsdcvKettering Health Main Campus Comment on above:Performed By: #### CMP, 97952-8, , CBCA #### [facility] ([id number]) [address] [place], [place] [address]HFG (RBC) [Entitic vol]85 vYXazyma89-201DgvVxyklq [facility]park HospitalComment on above:Performed By: #### CMP, 07337-9, 80221-0, CBCA #### [facility] ([id number]) [address] [place], [place] [address]Cohguorcn (Bld) [#/Vol]0.2 10*3/uLNormal0-0.9ProWyandot Memorial HospitalComment on above:Performed By: #### CMP, 75444-4, 65016-0, CBCA #### [facility] ([id number]) [address] [place], [place] [address]Fadmjcfqs/100 WBC (Bld)7.7 %NormalKettering Health Main Campus Comment on above:Performed By: #### CMP, 11791-2, 63268-3, CBCA #### [facility] ([id number]) [address] [place], [place] [address]Woihcqcndtz/100 WBC (Bld)69.3 %NormalKettering Health Main Campus Comment on above:Performed By: #### XENIA, 34354-3, , CBCA #### [facility] ([id number]) [address] [place], [place] [address]Pdpfhsrr mean volume (Bld) [Entitic vol]7.5 fLNormal7-12 [facility] HospitalComment on above:Performed By: #### CMP, 55117-6, 31627-7, CBCA #### [facility] ([id number]) [address] [place], [place] [address]Uggmzbjpr (Bld) [#/Vol]222 10*3/kYHufirx354-052SnoJevlls [facility] HospitalComment on above:Performed By: #### CMP, 53770-1, 10149-9, CBCA #### [facility] ([id number]) [address] [place], [place] [address]TZU COUNT3.36 X10E12/LLow3.80-5.20ProWyandot Memorial Hospital Comment on above:Performed By: #### XENIA, 71251-6, , CBCA #### [facility] ([id number]) [address] [place], [place] [address]ADA (Bld) [#/Vol]2.7 10*3/uLLow4.0-11.0ProWyandot Memorial HospitalComment on above:Performed By: #### CMP, 15781-0, , CBCA #### [facility] ([id number]) [address] [place], [place] [address]IRLEUROYVGOLK METABOLIC PANELon 01-86-3978Bgmdngp [Mass/Vol]2.4 g/dLLow3.2-5.3ProMedOhioHealth Grove City Methodist HospitalComment on above:Performed By: #### XENIA, 65086-1, , CBCA #### [facility] ([id number]) [address] [place], [place] [address]RCE [Catalytic activity/Vol]63 U/IKeugzw44-675XlaAcucmcWyandot Memorial HospitalComment on above:Performed By: #### XENIA, 32519-1, , CBCA #### [facility] ([id number]) [address] [place], [place] [address]PVG [Catalytic activity/Vol]18 U/LNormal0-31ProMedOhioHealth Grove City Methodist HospitalComment on above:Performed By: #### CMP, 84960-5, , CBCA #### [facility] ([id number]) [address] [place], [place] [address]Dmrav gap [Moles/Vol]6 mmol/LNormal5-15ProWyandot Memorial HospitalComment on above:Performed By: #### CMP, 15171-1, , CBCA #### [facility] ([id number]) [address] [place], [place] [address]SZW [Catalytic activity/Vol]24 U/LNormal0-41ProGeorgetown Behavioral Hospital HospitalComment on above:Performed By: #### CMP, 69668-9, 75457-5, CBCA #### [facility] ([id number]) [address] [place], [place] [address]Owlyopqbf [Mass/Vol]0.7 mg/dLNormal0.3-1.2PSamaritan HospitalComment on above:Performed By: #### XENIA, 07140-5, 50864-1, CBCA #### [facility] ([id number]) [address] [place], [place] [address]Ougpbgj [Mass/Vol]7.8 mg/dLLow8.5-10.5PSamaritan Hospital Comment on above:Performed By: #### XENIA, 33745-2, , CBCA #### [facility] ([id number]) [address] [place], [place] [address]Ewntckva [Moles/Vol]115 mmol/WSsvq43-839PqqBjkrbcWyandot Memorial HospitalComment on above:Performed By: #### XENIA, 53745-5, , CBCA #### [facility] ([id number]) [address] [place], [place] [address]DD8 [Moles/Vol]25 mmol/DOadvpj42-48LyjHmdffmSamaritan Hospital Comment on above:Performed By: #### XENIA, 69550-6, , CBCA #### [facility] ([id number]) [address] [place], [place] [address]Wsxiiibzrx [Mass/Vol]1.43 mg/dLHigh0.40-1.00Kettering Health Main CampusComment on above:Result Comment: METHOD TRACEABLE TO IDMS STANDARD Performed By: #### XENIA, 62629-8, , CBCA #### [facility] ([id number]) [address] [place], [place] [address]KGG/1.73 sq M.predicted among non-blacks MDRD (S/P/Bld) [Vol rate/Area]42 mL/min/{1.73_m2}Low>59ProWyandot Memorial HospitalComment on above: Result Comment: Reported eGFR is based on the CKD-EPI 2020 equation that does not use a race coefficient.Performed By: #### XENIA, 41070-5, , CBCA #### [facility] ([id number]) [address] [place], [place] [address]Muqsorh [Mass/Vol]118 mg/kOSocg93-23FrqFcqksiKettering Health Main Campus Comment on above:Performed By: #### XENIA, 14485-8, 83793-7, CBCA #### [facility] ([id number]) [address] [place], [place] [address]Szeyizgmg [Moles/Vol]2.8 mmol/LLow3.5-5.0ProWyandot Memorial HospitalComment on above:Performed By: #### XENIA, 58999-1, , CBCMindi #### [facility] ([id number]) [address] [place], [place] [address]Xmbxkrr [Mass/Vol]6.0 g/dLNormal6.0-8.0ProWyandot Memorial HospitalComment on above:Performed By: #### XENIA, 96453-6, , CBCA #### [facility] ([id number]) [address] [place], [place] [address]Qesidj [Moles/Vol]146 mmol/MEljzvz422-408AdnOycssi [facility] HospitalComment on above:Performed By: #### XENIA, 04877-2, , CBCA #### [facility] ([id number]) [address] [place], [place] [address]Ipvb nitrogen [Mass/Vol]11 mg/dLNormal5-23ProWyandot Memorial HospitalComment on above:Performed By: #### XENIA, 05466-5, , CBCA #### [facility] ([id number]) [address] [place], [place] [address]Zpfbrvt Glucometer (BldC) [Mass/Vol]on 04-86-8623Oldgwal [Mass/Vol]118 mg/iHLwnr97-32UubBpknmyWyandot Memorial HospitalGlucose [Mass/Vol]83 mg/dL Fedfet01-52TdiFjqutaWyandot Memorial HospitalGlucose [Mass/Vol]112 mg/xNQuri32-48 [facility] CampusGlucose [Mass/Vol]128 mg/pKFtfn61-80TzzJzwlxqWyandot Memorial HospitalLOWER RESPIRATORY CULTUREon 88-70-3404Esdhklxv identified Respiratory culture Nom (Sput)GRAM STAIN 0 to 1 WHITE BLOOD CELLS/LPF 0 to 1 SQUAMOUS EPITHELIAL CELLS/LPF 0 CILIATED EPITHELIAL CELLS/LPF FEW YEAST CULTURE RESULTS RARE KLEBSIELLA PNEUMONIAE RARE YEAST RARE YEAST VARIANT Jie Garcia, INTERNET DESIGNER, requested susceptibility on GNR on 04/17/23 Organism: [...] PIPERACIL/TAZOBACTAM S 16 F TOBRAMYCIN S <=1 FSusceptibleProWyandot Memorial HospitalComment on above: Performed By: #### 624-7 #### [facility] ([id number]) [address] [place] [address], [address] [place], [place] [address]GPMNNIHSEgl 43-85-2900Vqdcbusrf [Mass/Vol]2.0 mg/dLNormal1.8-2.6 [facility] CampusComment on above:Performed By: #### XENIA, 59699-4, 71207-5, CBCA #### [facility] ([id number]) [address] [place] [address]YYLD PCR NASALon 31-81-4255YDTP DNA HUBERT+probe Ql (Unsp spec) NegativeNormalNEGProWyandot Memorial HospitalComment on above:Performed By: #### XENIA, 62949-3, 14078-5, CBCA #### [facility] ([id number]) [address] [place] [address]LFEXYBCYSqn 90-38-0591Wanazevts [Moles/Vol]3.8 mmol/LNormal 3.5-5.0ProWyandot Memorial HospitalComment on above:Performed By: #### XENIA, 76467- 0, 31578-2, CBCA #### [facility] ([id number]) [address] [facility] [place] [address]Sjqvfpfkx [Moles/Vol]3.5 mmol/LNormal3.5-5.0ProWyandot Memorial HospitalComment on above:Performed By: #### XENIA, 17102-0, 22852-1, CBCA #### [facility] ([id number]) [address] [facility] [place], [place] [address]Ekuinigknhpmj IA [Mass/Vol]on 48-74-0774QUGWCCAXLNOON5.57 ng/mL High<0.05ProWyandot Memorial HospitalComment on above:Result Comment: NOTE <0.50 ng/mL - Low risk of severe sepsis and/or septic shock. <2.00 ng/mL - Recommend retesting within 6-24 hours. >2.00 ng/mL - High risk of sepsis and/or septic shock.Performed By: #### XENIA, 79702-3, 90509-2, CBCA #### [facility] ([id number]) [address] [facility] [place], [place] [address]SM CHEST 1 VWon 06-04-7830ZTFU-CoV-2 (COVID-19) RNA HUBERT+probe Ql (Unsp spec)XR CHEST [...] Francisco Javier Aceves MD on 04/15/2023 5:56 AMNormalProWyandot Memorial HospitalXR lumbar spine 6V w bendingon 57-87-1300KS lumbar spine 6V w bending [facility] Main [address] [address] XRay Report Signed Patient: Monet Recinos MR#: [id number] 82 : 1960 Acct:[id number] Age/Sex: 62 / F ADM Date: 12/11/22 Loc: XD Room: Type: REG CLI Attending Dr: John Carson MD Copies to: [...] Marlyn Samayoa M.D.12/11/2022 10:23 AM Dictation Location: [place] [address] Transcribed By: [facility] 12/11/22 1023 Dictated By: Marlyn Samayoa MD 12/11/22 1020 Signed By: 12/11/22 [facility] head/brain wo/w an[place]ette 82-09-2591MN head/brain wo/w [facility] Main [place] [address] [place] [address] MRI Report Signed Patient: Monet Recinos MR#: [id number] [birth year] : 1960 Acct:[id number] Age/Sex: 61 / F ADM Date: 01/24/22 Loc: MR Room: Type: [facility] CLI Attending Dr: Eric Huerta DO Copies to: [...] Jamie Oconnor M.D.01/24/2022 3:41 PM Dictation Location: [place] [address] Transcribed By: [facility] 01/24/22 1541 Dictated By: Jamie Oconnor II, MD 01/24/22 1537 Signed By: 01/24/22 [facility].Auto Diff 1on 01-07-2018 Auto Baso %0.6 %Normal0.2-2.0[facility] Memorial HospitalComment on above:Performed By: #### 8680960, 2641484, 1545069779, 2407135754, 2027035501, 939390752, 8045925, 58152206 ####[facility] (DEFAULT)[address] [place] [address] Auto Dawes %6 %Normal1-12[facility] HospitalComment on above:Performed By: #### 9027925, 1034554, 2607448317, 7315429122, 6224160659, 246955509, 0835614, 33439573 ####[facility] (DEFAULT)[address] [place] [address] Auto Neut %54 %Xezogx39-56Ktzvnhct HospitalComment on above:Performed By: #### 6709866, 2185041, 3914688934, 9494828042, 0276898998, 251705648, 2463313, 72720023 ####[facility] (DEFAULT)[address] [place], [place] [address] Baso Abs#0.0 f71Pnohyr0.0-0.2[facility]uder HospitalComment on above:Performed By: #### 8775661, 7176787, 7746715491, 4274460261, 0496135788, 880525310, 7926659, 00138775 ####[facility] (DEFAULT)[address] [place], [place] [address] Eos Abs#0.1 q78Owzuat7.0-0.4[facility] HospitalComment on above:Performed By: #### 8794208, 1319778, 0420339316, 1164864010, 5584418296, 251811252, 0935773, 04046505 ####[facility] (DEFAULT)[address] [place] [address] Eosinophils/100 WBC Auto (Bld)1.4 %Normal0.9-4.0[facility] HospitalComment on above:Performed By: #### 6373118, 4465041, 1383498939, 3732634280, 5842732198, 270343694, 9911635, 23304160 ####[facility] (DEFAULT)[address] [place] [address]Rjhgbdcwiqu Auto #/vol (Bld)2.8 l65Geiqou8.3-2.9 [facility] HospitalComment on above:Performed By: #### 5266196, 7061436, 6188605609, 9283183640, 3455600769, 037793520, 0413440, 13458288 ####[facility] (DEFAULT)[address] [place] [address]Ofzjdifzocg/100 WBC Auto (Bld)39 %Auogik69-63Omiguudi HospitalComment on above:Performed By: #### 6526614, 2326232, 4879859488, 5817141035, 9703898048, 088364335, 1809596, 42459152 ####[facility] (DEFAULT)[address] [place] [address] Dawes Abs#0.4 y43Epozdt6.0-0.8[facility] HospitalComment on above:Performed By: #### 7064732, 1965991, 9270275305, 4947008030, 6064397112, 994923667, 2436116, 87321637 ####[facility] (DEFAULT)[address] [place] [address] Neut Abs#3.9 r03Ruibav2.5-9.2Magrwexner medical center HospitalComment on above:Performed By: #### 2239138, 1702342, 5342679861, 6749643689, 2749172884, 891541693, 4403306, 19057060 ####[facility] (DEFAULT)[address] [place] [address] Acet Levelon 82-64-1909Evkqxcsxocfpm mass conc<44Bcycef02-03Yowhhiwd Hospital Comment on above:Performed By: #### 0622725, 4685250, 8682996180, 4341214705, 7642257160, 425595046, 8026224, 99127560 ####[facility] (DEFAULT)[address] [place] [address]LWU w/ Auto Diffon 90-02-1413Ccobkljvaaq distribution width Auto Ratio (RBC)17.0 %High11.5-15.0[facility] HospitalComment on above:Performed By: #### 6560225, 1122799, 4916154825, 7885361765, 6812119958, 162676342, 6616582, 91535232 ####[facility] (DEFAULT)[address] [place], [place] [address]Hematocrit Auto Volume Fraction (Bld)41.2 % High33.7-40.4[facility] HospitalComment on above:Performed By: #### 1190034, 3610107, 9754369343, 1250319463, 0823067251, 003114844, 4112963, 32259426 ####[facility] (DEFAULT)[address] [place], [place] [address]Hemoglobin mass conc (Bld)14.0 g/aUTpbbfo44.3-15.9[facility] HospitalComment on above: Performed By: #### 9823063, 3943651, 8575298844, 8422967677, 3447673151, 437903728, 6918532, 39162146 ####[facility] (DEFAULT)[address] [place], [place] [address]Man Diff?AutoNormalCommunity Memorial Hospital HospitalComment on above:Performed By: #### 8032104, 2035624, 5197248716, 8459016820, 3270507141, 937938589, 9938724, 71956466 ####[facility] (DEFAULT)[address] [place], [place] [address]H Auto Entitic mass (RBC)29 owOhunrz30-06Pdsjxxum HospitalComment on above:Performed By: #### 8130045, 8476735, 0271476016, 1478305127, 7410337174, 755510947, 3585748, 61923284 ####[facility] (DEFAULT)[address] [place], [place] [address]HC Auto mass conc (RBC)34 g/dL Wcreyd70-14Bbvovfhv HospitalComment on above:Performed By: #### 8389997, 4811464, 4606675228, 5087600234, 5535655093, 380052035, 9735754, 94631500 ####[facility] (DEFAULT)[address] [place], [place] [address]V Auto Entitic volume (RBC)84 eWBetour65-058Hqtrwuea HospitalComment on above:Performed By: #### 0619527, 9147497, 3893800013, 9123899665, 6052825882, 412648930, 0282641, 27750953 ####[facility] (DEFAULT)[address] [place] [address]Yqofhvqy mean volume Auto Entitic volume (Bld)9.8 fLNormal6.3-10.2 [facility] HospitalComment on above:Performed By: #### 3174660, 8722588, 2989640081, 5737298808, 6378973820, 994029638, 3959089, 05177422 ####[facility] (DEFAULT)[address] [place] [address]Clhobkurk Auto #/vol (Bld)268 p67Qvsoaf467-793Qhssqkat HospitalComment on above:Performed By: #### 8207170, 2251716, 2324985153, 0970794953, 8277689419, 960238560, 6430012, 87717551 ####[facility] (DEFAULT)[address] [place] [address] RBC Auto #/vol (Bld)4.90 k28Ssghgj3.70-5.30[facility] HospitalComment on above: Performed By: #### 9223166, 9994637, 7110098741, 9110384645, 3029970650, 665365664, 6519683, 35451209 ####[facility] (DEFAULT)[address] [place] [address]UVG Auto #/vol (Bld)7.2 y99Xolcpxs Interpretation CodeCommunity Memorial Hospital HospitalComment on above:Performed By: #### 5725123, 9261901, 5852948827, 4453811342, 4272114425, 632172013, 9850664, 24045810 ####[facility] (DEFAULT)[address] [place] [address]PPJ Standardon 77-48-0754Zytt Total0.2 mg/dLLow0.3-1.2Magrwexner medical center HospitalComment on above: Performed By: #### 9755706774, 3847584507 ####[facility] (DEFAULT)[address] [place] [address]eHGS Non AA>60Invalid Interpretation Code [facility] HospitalComment on above:Performed By: #### 6515222309, 5151738507 ####[facility] (DEFAULT)[address] [place] [address] 76893lCTP AA>60 Invalid Interpretation CodeCommunity Memorial Hospital HospitalComment on above:Result Comment: Chronic Kidney disease could be indicated at eGFRs of less than 60 ml/min/1.73m2. Kidney Failure is indicated at less than 15 ml/min/1.73m2 Performed By: #### 0122053157, 2629773118 ####[facility] (DEFAULT)[address] [place] [address]Keqiuuf mass conc3.8 g/dLNormal3.5-5.0 [facility] HospitalComment on above:Performed By: #### 1584939465, 4302105819 ####[facility] (DEFAULT)[address] [place] [address] Albumin/Globulin mass ratio1.1 {ratio}Low1.4-2.6[facility] HospitalComment on above:Performed By: #### 1321708714, [id number] ####[facility] (DEFAULT)[address] [place] [address] [phone] Phos81 IU/PSvqnag87-57 [facility] HospitalComment on above:Performed By: #### [id number], [id number] ####[facility] (DEFAULT)[address] [place] [address] 99615SJI/SGPT 15.0 IU/CHacbfn36.0-54.0[facility] HospitalComment on above:Performed By: #### [id number], [id number] ####[facility] (DEFAULT)[address] [place] [address] [phone] gap 3 molar conc13.0 mmol/LNormal5.0-19.0[facility] HospitalComment on above:Performed By: #### [id number], [id number] ####[facility] (DEFAULT)[address] [place] [address] [id number]/SGOT18 IU/LNormal 15-41[facility] HospitalComment on above:Performed By: #### [id number], [id number] ####[facility] (DEFAULT)[address] [place] [address] 40170Wxyvjzw mass conc8.8 mg/dLLow8.9-10.3[facility] HospitalComment on above:Performed By: #### [id number], [id number] ####[facility] (DEFAULT)[address] [place] [address] [phone] molar rpfx117 mmol/XCfclco474-351[facility] Comment on above:Performed By: #### [id number], [id number] ####[facility] (DEFAULT)[address] [place] [address] [id number] molar conc23 mmol/LNormal 21-32[facility] HospitalComment on above:Performed By: #### [id number], [id number] ####[facility] (DEFAULT)[address] [place] [address] 60811 Creatinine mass conc0.77 mg/dLNormal0.60-1.30[facility] HospitalComment on above: Performed By: #### [id number], [id number] ####[facility] (DEFAULT)[address] [place] [address] [phone] Calculated mass conc (S)3.6 g/dL Normal1.5-4.3[facility] HospitalComment on above:Performed By: #### [id number], [id number] ####[facility] (DEFAULT)[address] [place] [address] [id number] mass conc91.0 mg/hLSvkvcm77.0-118.0[facility] HospitalComment on above:Performed By: #### [id number], [id number] ####[facility] (DEFAULT)[address] [place] [address] [phone] mOsm/LInvalid Interpretation CodeCommunity Memorial Hospital HospitalComment on above:Performed By: #### [id number], [id number] ####[facility] (DEFAULT)[address] [place] [address] [phone] molar conc4.0 mmol/LNormal3.6-5.1[facility] Comment on above:Performed By: #### [id number], [id number] ####[facility] (DEFAULT)[address] [place] [address] [phone] mass conc7.4 g/dLNormal 6.5-8.1M[facility] HospitalComment on above:Performed By: #### [id number], [id number] ####[facility] (DEFAULT)[address] [place] [address] 72074Oowmek molar ksbb946.0 mmol/GHyvzbs004.0-144.0[facility] HospitalComment on above:Performed By: #### [id number], [id number] ####[facility] (DEFAULT)[address] [place] [address] 01410Hgej nitrogen mass conc17 mg/dL Normal8-26[facility] HospitalComment on above:Performed By: #### [id number], [id number] ####[facility] (DEFAULT)[address] [place] [address] 91495Wgrx nitrogen/Creatinine mass ratio22.0 mg/mgHigh4.6-16.2MGalion Hospital Comment on above:Performed By: #### [id number], [id number] ####[facility] (DEFAULT)[address] [place] [address] 65783PX Clinical Summaryon [id number] Clinical SummaryOhio[facility] - Emergency [address] [place] [address] ed Clinical SummaryPERSON INFORMATIONName: MONET RECINOS Age: 57 Years Sex: FEMALEDOB: [birth year] MRN: Acct#:Visit Reason: General medical; MEDICAL CLEARENCE Arrival: 01/07/18 13:27:00 Discharge: 01/07/18 15:22:00LOS: 000 01:55 Check In: 01/07/18 13:27:00 Checkout:01/07/18 15:22:00[address] [facility] [address]GIB: Provider, NonePROVIDER INFORMATIONProvider Role Assigned UnassignedRylee Gaxiola ED 01/07/18 13:36:17Magrum RNAdrian ED Nurse 01/07/18 13:37:42VITALS INFORMATIONVital Sign Triage [...] Complaint from Nursing Triage Note : Chief Kwpeukksr90/13/18 13:28 EDT Chief Complaint sent from [facility] for medical clearance, depressed/anxiety .History of Present Nkmzxbd66-eigx-mjb female presents to the emergency department for medical clearance for psychiatr ic admission. Patient is feeling very depressed. She states she feels like she just wants to go to sleep and never wake up. She was seen at [facility] and will be admitted to [address]Review of SystemsConstitutional symptoms: No fever, no [...] suicide risk.Documents reviewed: Emergency department nurses' notes, [facility] Counselling.Orders Launch OrdersLaboratory:Urinalysis with Culture, if indicated [...] Lab Collect.Results review: Lab results : Lab Igjzaumhb84/13/18 14:19 EDT Sodium Level 138.0 mmol/L Potassium [...] % Auto Lymph % 39 % Auto Dawes % 6 % Auto Eos % 1.4 % Auto Baso % 0.6 % Neut Abs# 3.9 x103/mcL Lymph Abs# 2.8 x103/mcL Dawes Abs# 0.4 x103/mcL Eos Abs# 0.1 x103/mcL [...] then he is to be taken to [facility] for psychiatric admission. Patient with very flat [...] She will transport the patient directly to [address] as arrabnged by counsellor and accepted by Dr. Hackett.Impression and PlanDiagnosisSuicidal thoughts (KHD01-DU R45.851, Discharge, Medical)Depression, major (NNH59-BW F32.9, Discharge, Medical)PlanDisposition: Transfer to other location:Time: 01/07/18 15:05:00, Facility name: [facility], Accepted by: Dr. Hackett, [address] [place] [address], Time 01/07/18 14 :50:00, Referral to [facility].Patient was given the following educational materials: Major Depressive Disorder, Adult.Follow up with: Report directly to [facility] main entrance to admitting office. You will be taken to [address] [place] [address] for admission by hospital personnel 01/07/2018 4:00 PM; .Counseled: Patient, Friend, Regarding diagnosis, Regarding diagnostic results, Regarding treatment plan, Regarding prescription, Patient indicated understanding of instructions.DISCHARGE INFORMATION:Discharge Disposition: Disch /Transfer to Psychiatric FacilityDischarge Location: [facility]dkyPATIENT EDUCATION INFORMATIONInstructions: Major Depressive Disorder, AdultFollow- Up:With: Address: When:Report directly to [facility] main entrance to admitting office. You will be taken to [address] [place] [address] for admission by hospital personnel 01/07/2018 4:00 PMDIAGNOSIS:Depression, major; Suicidal thoughtsPatient Understands:Comment:[facility] HospitalED Note - Otheron [id number] Note - Eilne0434- I faxed over patient information at this time to [facility],to Adrian Cordon,for medical clearance[Electronically Signed on: 01/07/2018 14:57 EDT] Familia Robertson[Verified on: 01/07/2018 14:57 EDT] Ailyn [facility] ED Note - Physicianon [id number] Note - PhysicianPatient: MONET RECINOS : 57 years Sex: FEMALE : 64Associated Diagnoses: Suicidal thoughts; Depression, majorAuthor: Todd Gaxiola InformationTime seen: Date & time 01/07/18 13:40:00.History source: Patient.Arrival mode: Private vehicle.History limitation: None.Additional information: Chief Complaint from Nursing Triage Note : Chief Ylmmcwkar64/13/18 13:28 EDT Chief Complaint sent from [facility] for medical clearance, depressed/anxiety .History of Present Ylgmctn24-bngk-fdt female presents to the emergency department for medical clearance for psychiatric admission. Patient is feeling very depressed. She states she feels like she just wants to go to sleep and never wake up. She was seen at [facility] and will be admitted to [address]Review of SystemsConstitutional symptoms: No fever, no [...] Depression, suicide risk.Documentsreviewed: Emergency department nurses' notes, [facility].Orders Launch OrdersLaboratory:Urinalysis with Culture, if indicated Standard [...] Lab Collect.Results review: Lab results : Lab Jlyaqzzxf62/13/18 14:19 EDT Sodium Level 138.0 mmol/L Potassium [...] % Auto Lymph % 39 % Auto Dawes % 6 % Auto Eos % 1.4 % Auto Baso % 0.6 % Neut Abs# 3.9 x103/mcL Lymph Abs# 2.8 x103/mcL Dawes Abs# 0.4 x103/mcL Eos Abs# 0.1 x103/mcL [...] then he is to be taken to [facility] for psychiatric admission. Patient with very flat [...] She will transport the patient directly to [address] as arrabnged by counsellor and accepted by Dr. Hackett.Impression and PlanDiagnosisSuicidal thoughts (HGA23-UZ R45.851, Discharge, Medical)Depression, major (USO50-GS F32.9, Discharge, Medical)PlanDisposition: Transfer to other location: Time: 01/07/18 15:05:00, Facility name: [facility], Accepted by: Dr. Hackett, [address] [place] [address], Time 01/07/18 14:50:00, Referral to [facility].Patient was given the following educational materials: Major Depressive Disorder, Adult.Follow up with: Report directly to [facility] main entrance toadmitting office. You will be taken to [address] [place] [address] for admission by hospital personnel 01/07/2018 4:00 PM; .Counseled: Patient, Friend, Regarding diagnosis, Regarding diagnostic results, Regarding treatment plan, Regarding prescription, Patient indicated understanding of instructions.[Electronically Signed on: 01/07/2018 15:18 EDT] Rylee Gaxiola[Electro nically Signed on: 01/07/2018 20:18 EDT] Nadege Fernandez MD[Verified on: 01/07/2018 15:18 EDT] Rylee GaxiolaZanesville City HospitalED Note-Nursingon [id number] Note-NursingPt is transferred [place] [facility] [place] to be admitted to [address] [place] [address] room 1, bed #2. Pt's friendis driving her to [facility]The pt andher friend were instructed to report to [facility] front lobby, admitting department and then the pt. will be escorted to [address] [place] [address] per Security. pt had not beloingins with her at this time but the clothining on her back.[facility] Note-NursingPt sitting on the cart in ER [...] feel suicidal, she just feel sad. Her PRESENTATION DESIGNER is Dr. Rodriguez and she can not recall her Psychiatrist's name.Her friend brought lto the ER from [facility]. [facility] Patient Education Noteon [id number] Patient Education NoteEducation MaterialsOhio Valley Surgical Hospital and Behavioral HealthMajor Depressive Disorder, AdultMajor depressive [...] by your health care provider.General instructions? Take sryt-tss-kukcemc and prescription medicines only as told by [...] This is important.Where to find more information:National [place] on Mental Illness? www.isadora.orgU.S. National Martinez of Mental Health? www.[facility].nih.govNational Suicide Prevention Lifeline? 8-563-074-TALK (5177). This is free, 24-hour help.Contact a healthcare [...] Released: 08/08/2013 Document Revised: 12/18/2016 Document Reviewed: 10/22/2016Elsevier Interactive Patient Education ? 2016 [employer].[facility] HospitalED Patient Summary on [id number] Patient SummaryOhiohealth Hardin [facility] Hospital - Emergency [address] [place], [place] [address] pATIENT DISCHARGE INSTRUCTIONSPatient InformationName: MONET RECINOS Age: 57 YearsDate of : [birth year]MRN:[id number] For Visit: General medical; MEDICAL CLEARENCEArrival Time: 01/07/18 13:27:00Phone: Primary Care Physician: Provider, NoneAttending Physician: Nadege Fernandez MDComment:Visit Diagnosis:Diagnoses This Visit Depression, major (F32.9) General medical ([id number]) Suicidal thoughts (R40.404)If you received any narcotics, sedation, or any [...] any legal documentsWith: Address: When:Report directly to [facility] main entrance to admitting office. You will be taken to [address] [place] [address] for admission byhospital personnel 01/07/2018 4:00 PMMedication Information:The exam and treatment you received today in the [facility] Department were for an urgent problem and are not intended as complete care. It is important for you to follow up with a doctor, nurse practitioner, or physician?s social media assistant for ongoing care. If your symptoms [...] number so we can reach you if necessary.[facility] Emergency Departmenthas provided you with a complete list of medications post discharge. Please inform your resizer operator/provider of your visit and for further [...] of this condition is not known. MD Pandya is most likely caused by a combination [...] by your health care provider.General instructions? Take qfci-mku-sckkeue and prescription medicines only as told by [...] This is important.Where to find more information:National [place] on Mental Illness? www.isadora.orgU.S. National Martinez of Mental Health? www.nimh.nih.govNational Suicide Prevention Lifeline? 9-749-360-TALK (1707). This is free, 24-hour help.Contact a health [...] Reviewed: 10/22/2016Cathi Interactive Patient Education ? 2017 [employer] Viruses or BacteriaWhat?s got you sick?Antibiotics [...] ServicesCenters for Disease Control and Prevention December 2013NoMercy Health – The Jewish HospitalEthanol.on 23-22-4739Bjyghxf Level<5.7Conyxh5.0-5.0[facility] Memorial HospitalComment on above:Performed By: #### [id number], [id number] ####[facility] (DEFAULT)[address] [place] [address] 67712Gcorz Redon 83-94-0341Accp CollectedYesInvalid Interpretation UK HealthcareComment on above:Performed By: #### [id number], [id number], [id number], [id number], [id number], [id number], [id number] ####[facility] (DEFAULT)[address] [place] [address] 90350Zvkyfvnxhwvl 01-07-2018 Salicylate Lvl<4.7Opznjh8.0-30.0Ohio[facility] Memorial HospitalComment on above:Result Comment: Salicylate ranges less than 30 mg/dL are considered to be therapeutic. Levels greater than 30 mg/dL are considered toxic and levels greater than 60 mg/dL may be lethal.Performed By: #### [id number], [id number], [id number], [id number], [id number], [id number], [id number], [id number] ####[facility] (DEFAULT)[address] [place] [address] 52225AAV w/ Reflex to FT4on 25-71-1618Bkmiamgsgex Qn1.54 mcIU/mLNormal0.45-5.33Ohio[facility] Hardin Memorial HospitalComment on above:Result Comment: General Population (males and non- females, aged 21-88) 0.45 - 5.33 Females, 1st Trimester 0.05 - 3.70 Females, 2nd Trimester 0.31 - 4.35 Females, 3rd Trimester 0.41 - 5.18Performed By: #### [id number], [id number] ####[facility] (DEFAULT)[address] [place] [address] 62415Thdnatbn Noteon 31-02-2095Nfeyffaz Note [id number]#1.00OTGTGeorgetown Behavioral Hospital Triage Panel 12on 01-51-7192Nfvuxen mass [facility] Comment on above:Performed By: #### [id number], [id number] ####[facility] (DEFAULT)[address] [place] [address] 53322Emvqmv Internal ControlPass [facility] County HospitalComment on above:Performed By: #### [id number], [id number] ####[facility] (DEFAULT)[address] [place] [address] 39292V Amph ScrNegativeProMedica Memorial Hospital HospitalComment on above:Performed By: #### [id number], [id number] ####[facility] (DEFAULT)[address] [place] [address] 19904K Carol ScrNegGood Samaritan HospitalComment on above: Performed By: #### [id number], [id number] ####[facility] (DEFAULT)[address] [place] [address] 10076W Benzodia ScrSt. Anthony's Hospital Comment on above:Performed By: #### [id number], [id number] ####[facility] (DEFAULT)[address] [place] [address] 50562K Cannab ScrnNegativeNormal [facility] HospitalComment on above:Performed By: #### [id number], [id number] ####[facility] (DEFAULT)[address] [place] [address] 91752S Cocaine ScrNegLongmont United Hospital HospitalComment on above:Performed By: #### [id number], [id number] ####[facility] (DEFAULT)[address] [place] [address] 59657V Methadone ScrNegativeNoUniversity Hospitals St. John Medical Center HospitalComment on above: Performed By: #### [id number], [id number] ####[facility] (DEFAULT)[address] [place] [address] 66633Z Methamp ScrnNegativeNormAdena Fayette Medical Center Hospital Comment on above:Performed By: #### [id number], [id number] ####[facility] (DEFAULT)[address] [place] [address] 66921X Opiate ScrNegativeNormal [facility] HospitalComment on above:Performed By: #### [id number], [id number] ####[facility] (DEFAULT)[address] [place] [address] 09565D Oxycod ScrNegativeNormalCommunity Memorial Hospital HospitalComment on above:Performed By: #### [id number], [id number] ####[facility] (DEFAULT)[address] [place] [address] 86068J Phencyclidine ScrNegativeNormalCommunity Memorial Hospital HospitalComment on above:Performed By: #### [id number], [id number] ####[facility] (DEFAULT)[address] [place] [address] 17554H Tricyclic Antidepress Scr NegativeNormalCommunity Memorial Hospital HospitalComment on above:Performed By: #### [id number], [id number] ####[facility] (DEFAULT)[address] [place] [address] 22805Wqkcv SourceClean CatchNormalCommunity Memorial Hospital HospitalComment on above:Performed By: #### [id number], [id number] ####[facility] (DEFAULT)[address] [place] [address] 34172PC w Culture if Ind Standardon 67-86-7059Gkspjyusbl UANormalNjgrwexner medical center HospitalComment on above:Performed By: #### [id number], [id number] ####[facility] (DEFAULT)[address] [place] [address] 94123Nlgat Nom (U)YELLOWInvalid Interpretation CodeMagruder HospitalComment on above:Performed By: #### [id number], [id number] ####[facility] (DEFAULT)[address] [place] [address] 46914Ltcedpi?Not IndicatedInvalid Interpretation CodeMagruder HospitalComment on above:Performed By: #### [id number], [id number] ####[facility] (DEFAULT)[address] [place] [address] 36929Iilkcsd mass conc (U)NegativeInvalid Interpretation Code [facility] HospitalComment on above:Performed By: #### [id number], [id number] ####[facility] (DEFAULT)[address] [place] [address] 09735Qnjknbh Ql (U)NegativeInvalid Interpretation CodeCommunity Memorial Hospital HospitalComment on above: Performed By: #### [id number], [id number] ####[facility] (DEFAULT)[address] [place] [address] 26210Zjztb?Not IndicatedInvalid Interpretation CodeCommunity Memorial Hospital HospitalComment on above:Performed By: #### [id number], [id number] ####[facility] (DEFAULT)[address] [place] [address] 58197NU BilirubinNegativeNormalCommunity Memorial Hospital HospitalComment on above:Performed By: #### [id number], [id number] ####[facility] (DEFAULT)[address] [place] [address] 01515WB BloodNegativeNormalNEGATIVENjgruder HospitalComment on above:Performed By: #### [id number], [id number] ####[facility] (DEFAULT)[address] [place] [address] 58712XU ClarityCLEARNormalCLEAR [facility] HospitalComment on above:Performed By: #### [id number], [id number] ####[facility] (DEFAULT)[address] [place] [address] 95647NI Leuk EstNegativeNormalNEGATIVETrinity Health System Twin City Medical Centeruder HospitalComment on above:Performed By: #### [id number], [id number] ####[facility] (DEFAULT)[address] [place] [address] 37482DJ NitriteNegativeNormalNEGATIVECommunity Memorial Hospital HospitalComment on above:Performed By: #### [id number], [id number] ####[facility] (DEFAULT)[address] [place] [address] 31019LP pH6.0Invalid Interpretation Code5-8[facility] HospitalComment on above:Performed By: #### [id number], [id number] ####[facility] (DEFAULT)[address] [place] [address] 05746TC ProteinNegativeNormalNEGATIVECommunity Memorial Hospital HospitalComment on above:Performed By: #### [id number], [id number] ####[facility] (DEFAULT)[address] [place] [address] 94337ER Spec Grav>=1.030Invalid Interpretation Code 1.001-1.035[facility] HospitalComment on above:Performed By: #### [id number], [id number] ####[facility] (DEFAULT)[address] [place] [address] 78306UU Urobilinogen0.2 mg/dLNormal0.2-1.0[facility] HospitalComment on above: Performed By: #### [id number], [id number] ####[facility] (DEFAULT)[address] [place] [address] 92943Fkbtr SourceClean CatchNormAdena Fayette Medical Center HospitalComment on above:Performed By: #### [id number], [id number] ####[facility] (DEFAULT)[address] [place] [address] 61218 Vital Signs Date TimeVital SignValuePerforming GzneoakwlQpnmwtlx28-91-0309 12:10-0400Body .3 cmRisa Summers MD Work Phone: [facility]10-13-2025 12:10-0400Body mass index (BMI) [Ratio]35.14 kg/m2Risa Summers MD Work Phone: [facility] [employer] Ozvwgy09-92-5435 12:10-0400Body civthq262 kgRisa Summers MD Work Phone: [facility]10-13-2025 12:10-0400Diastolic blood wdcybdmk78 mm[Hg]Risa Summers MD Work Phone: [facility]10-13-2025 12:10-0400Heart rate 96 /minImad Melina MIJARES Work Phone: [facility]10-13-2025 12:10-2236ZbV0% (BldA) [Mass fraction]97 %Risa Summers MD Work Phone: [facility]10-13-2025 12:10-0400Systolic blood fbfsfvin741 mm[Hg]Risa Summers MD Work Phone: [facility]09-09-2025 11:48-0400Body tathfd880.[address]09-09-2025 11:48-0400Body mass index (BMI) [Ratio]36.92 kg/m2Pmh [address] [place], [place] 7875709-09-2025 11:48-0400Body wyhzvr222.[address] [place], [place] 7875708-25-2025 13:11-0400Body ssjybx982.[address]08-25-2025 13:11-0400Body mass index (BMI) [Ratio] 36.62 kg/m2Pmh [address] [place], [place] 7875708-25-2025 13:11-0400Body iegnyt383.49 kg Pmh [address] [place], [place] 7875708-21-2025 12:37-0400Body .3 cmFaithabby Steiner DO Work Phone: [facility]08-21-2025 12:37-0400Body mass index (BMI) [Ratio]35.66 kg/m2Joabby Perrys DO Work Phone: [facility]08-21-2025 12:37-0400Body gmennitgnxa63.49 [degF]Rajni Steiner DO Work Phone: [facility]08-21-2025 12:37-0400Body wqwzqi437.59 kgRajni Perrys DO Work Phone: [facility]08-21-2025 12:37-0400Diastolic blood jnykjuhh88 mm[Hg]Rajni Steiner DO Work Phone: [facility]08-21-2025 12:37-0400Heart rate 88 /minJoabby Perrys DO Work Phone: [facility]08-21-2025 12:37-0400 Respiratory rate20 /minRajni Perrys DO Work Phone: [facility]08-21-2025 12:37-0703NaK0% (BldA) [Mass fraction]95 %Rajni Steiner DO Work Phone: [facility]08-21-2025 12:37-0400Systolic blood bgwpsyno136 mm[Hg]Rajni Steiner DO Work Phone: [facility]08-11-2025 09:21-5124EpL8% (BldA) [Mass fraction]92 %[facility] HospitalComment on above:Performed By: #### VBG #### [facility] ([address] [address] QKC64-90-3138 13:28-5563JzK7% (BldA) [Mass fraction]94 %[facility] HospitalComment on above:Performed By: #### BMP #### [facility] ([facility]) [address] [place] [address] JLH52-25-5836 07:16-8065LkS8% (BldA) [Mass fraction]100 %[facility] HospitalComment on above:Performed By: #### VBG ####[facility] ([address] [address] HPU03-07-1312 13:57-0400Body .3 cmOdessa Cook APRN-MAXX Work Phone: [facility] [employer] Bzfyhz06-68-6163 13:57-0400Body mass index (BMI) [Ratio]37.97 kg/e8ZxlfxdOdessa Cook APRN-INTERNET DESIGNER Work Phone: [facility] Zrjpct20-00-4368 13:57-0400Body vmlaro937.62 kgOdessa Cook APRN-INTERNET DESIGNER Work Phone: [facility] [employer] Fwzxjb24-80-1007 13:57-0400Diastolic blood jgrszlvi31 mm[Hg]Odessa Cook APRN-MAXX Work Phone: [facility]08-04-2025 13:57-0400Heart rate 96 /minOdessa Cook APRN-INTERNET DESIGNER Work Phone: [facility] [employer] Yaysnh35-89-4370 13:57-5417BtF5% (BldA) [Mass fraction]92 %Odessa Cook APRN-MAXX Work Phone: [facility] Mwkqbs21-87-2166 13:57-0400Systolic blood vsvcjixh870 mm[Hg]Odessa Cook APRN-MAXX Work Phone: [facility] [employer] Bpbfeb15-53-8434 14:17-0400Body rzeyqx166.3 cmRajni Steiner DO Work Phone: [facility] [employer] Itorqq44-29-5736 14:17-0400Body mass index (BMI) [Ratio]40.38 kg/m2Rajni Perrys DO Work Phone: [facility] Hbrbhs02-08-3581 14:17-0400Body uwnedmvebdi83.4 [degF]Rajni Vickys DO Work Phone: [facility] [employer] Lwcvsn73-07-1793 14:17-0400Body hbpydn779.1 kgRajni Perrys DO Work Phone: [facility] [employer] Mqdxwf77-45-0939 14:17-0400Diastolic blood cnufcgzb35 mm[Hg]Rajni Steiner DO Work Phone: [facility] Dkixih37-25-0851 14:17-0400Heart rate 90 /minRajni Perrys DO Work Phone: [facility] Rkbjaa49-18-1051 14:17-0400 Respiratory rate20 /minRajni Perrys DO Work Phone: [facility] [employer] Ejkfcs67-76-5746 14:17-8536CqM7% (BldA) [Mass fraction]92 %Rajni Steiner DO Work Phone: [facility] [employer] Jruljh94-66-0279 14:17-0400Systolic blood mm[Hg]Rajni Steiner DO Work Phone: [facility] [employer] Dkajbx02-98-9667 16:17-0400Body ijkypu840.3 cmJoabby Perrys DO Work Phone: [facility] [employer] Qmdwnu17-61-7591 16:17-0400Body mass index (BMI) [Ratio]38.5 kg/m2Rajni Perrys DO Work Phone: [facility] [employer] Wzaevi17-03-6228 16:17-0400Body qeelzrhpced94.29 [degF]Rajni Steiner DO Work Phone: [facility] Tlbnbc62-43-0736 16:17-0400Body bhmicv709.3 kgRajni Perrys DO Work Phone: [facility] Cpdknq23-39-1202 16:17-0400Diastolic blood hyybqxpn01 mm[Hg]Rajni Steiner DO Work Phone: [facility] Oqlxfs75-21-9266 16:17-0400Heart rate 77 /minRajni Perrys DO Work Phone: [facility] Bgjsba35-71-5115 16:17-0400 Respiratory rate20 /minRajni Perrys DO Work Phone: [facility] [facility] Tdczqm09-59-3983 16:17-8604YuG1% (BldA) [Mass fraction]94 %Rajni Steiner DO Work Phone: [facility] Jngdrd67-78-6703 16:17-0400Systolic blood fispzrmv334 mm[Hg]Rajni Steiner DO Work Phone: [facility] Blvrww74-02-1523 11:44-0400Body rljuva338.3 cmJoabby Steiner DO Work Phone: [facility] Mippuw49-42-3954 11:44-0400Body mass index (BMI) [Ratio]36.4 kg/m2Rajni Steiner DO Work Phone: [facility] Tceptz84-59-8204 11:44-0400Body asbljucmsai82.9 [degF]Rajni Steiner DO Work Phone: [facility] Jdzwtd97-40-8428 11:44-0400Body .86 kgRajni Steiner DO Work Phone: [facility] Tjcuou98-76-3530 11:44-0400Diastolic blood dmkilihu65 mm[Hg]Rajni Steiner DO Work Phone: [facility] Hfqprj82-75-9018 11:44-0400Heart rate 90 /minRajni Steiner DO Work Phone: [facility] Crdoto46-21-5229 11:44-0400 Respiratory rate20 /minRajni Steiner DO Work Phone: [facility] Sysqpr04-08-6128 11:44-3990ZyG9% (BldA) [Mass fraction]97 %Rajni Steiner DO Work Phone: [facility] Tupeff35-17-8552 11:44-0400Systolic blood nbixtiun472 mm[Hg]Rajni Steiner DO Work Phone: [facility] Tuaeqo70-13-8169 15:18-0400Body falwsp008.3 cmLeannhernando Guerrero DO Work Phone: [facility] SystemYnbkezthhp72-35-7515 15:18-0400Body mass index (BMI) [Ratio]36.71 kg/t9Exqzte Cesar DO Work Phone: [facility] SystemRpktcmtdol29-01-7582 15:18-0400Body sgubjw388.76 kgLejim Guerrero DO Work Phone: [facility] SystemXckwayrnqy50-53-5365 15:18-0400Diastolic blood mm[Hg]Sydnie Guerrero DO Work Phone: [facility] SystemCzlgzoouri76-02-2023 15:18-0400Heart rate93 /min Sydnie Guerrero DO Work Phone: [facility] SystemYbdpwjqxkv07-21-8576 15:18-1745OoF5% (BldA) [Mass fraction]92 %Sydniearianna Guerrero DO Work Phone: [facility] SystemKdobxmljrz11-48-9352 15:18-0400Systolic blood hgpbripd942 mm[Hg]Sydnie Guerrero DO Work Phone: [facility] SystemLtawrqcdpe95-64-3774 11:05-0400Body yxapme579.3 cmMyriam Peacock MD Work Phone: [phone] [place], [place] 6415805-08-2025 11:05-0400Body mass index (BMI) [Ratio]36.77 kg/x4MtwdeMyriam Peacock MD Work Phone: [phone] [place], [place] 6415805-08-2025 11:05-0400Body grpmyf814.95 kgMyriam Peacock MD Work Phone: [facility]05-08-2025 11:05-0400Diastolic blood gtunqcvx90 mm[Hg]Myriam Peacock MD Work Phone: [phone] [place], [place] 6415805-08-2025 11:05-0400Heart rate 96 /minMyriam Peacock MD Work Phone: [facility] Ocatas24-68-2142 11:05-2067VxG5% (BldA) [Mass fraction]97 %Myriam Peacock MD Work Phone: [facility] Qqwtry80-65-1612 11:05-0400Systolic blood epygvygp887 mm[Hg]Myriam Peacock MD Work Phone: [facility] Vjjeby27-85-2906 13:09-0400Body aqcleu492.3 cmJoabby Steiner DO Work Phone: [facility] Vvpzzf51-09-6639 13:09-0400Body mass index (BMI) [Ratio]35.21 kg/m2Rajni Steiner DO Work Phone: [facility] Biakoi90-92-4695 13:09-0400Body vflrgazoodb50.1 [degF]Rajni Steiner DO Work Phone: [facility] Lagdga03-84-3024 13:09-0400Body ciujvw074.14 kgJoabby Steiner DO Work Phone: [facility] Vvnryx79-74-3678 13:09-0400Diastolic blood pjpdauwo20 mm[Hg]Rajni Steiner DO Work Phone: [facility] Iirnoi68-92-8807 13:09-0400Heart rate 97 /minJoabby Steiner DO Work Phone: [facility] Jacxfn43-12-6605 13:09-5956BmN3% (BldA) [Mass fraction]95 %Rajni Steiner DO Work Phone: [facility] Unxfmc09-73-0653 13:09-0400Systolic blood hoygiceq966 mm[Hg]Rajni Steiner DO Work Phone: [facility]11-21-2024 13:00-0500Body mnicsg430.3 cmLeayvette Guerrero DO Work Phone: [facility] SystemUitkflkgrj91-30-2972 13:00-0500Body mass index (BMI) [Ratio]33.82 kg/l6GmqwhxSydnie Guerrero DO Work Phone: [facility] SystemDhylgbtckz62-59-2039 13:00-0500Body vyfqot205.87 kgLejim Guerrero DO Work Phone: [facility] SystemFwhgehxzxa48-68-2707 13:00-0500Diastolic blood lpnoaphm72 mm[Hg]Sydnie Guerrero DO Work Phone: [facility] SystemJdwnsxpegx42-07-6641 13:00-0500Heart kodx661 /min Sydnie Guerrero DO Work Phone: [facility] SystemAbnzbcsibb01-94-9608 13:00-2692KjB2% (BldA) [Mass fraction]89 %Sydnie Guerrero DO Work Phone: [facility] SystemIectxnpzhc00-04-8928 13:00-0500Systolic blood wdiutqzo475 mm[Hg]Sydnie Guerrero DO Work Phone: [place] [address]Tjldkhjoxp89-86-1826 13:10-0500Body yrwexg787.3 cmJoabby Steiner DO Work Phone: [facility]11-11-2024 13:10-0500Body mass index (BMI) [Ratio]32.93 kg/m2Rajni Steiner DO Work Phone: [facility]11-11-2024 13:10-0500Body mharqnaqthw02.4 [degF]Rajni Perrys DO Work Phone: [facility]11-11-2024 13:10-0500Body juelvj061.15 kgRajni Perrys DO Work Phone: [facility]11-11-2024 13:10-0500Diastolic blood ofgtvhnl16 mm[Hg]Rajni Steiner DO Work Phone: [facility]11-11-2024 13:10-0500Heart rate 87 /minJoabby Perrys DO Work Phone: [facility] Qdlkzy32-99-3814 13:10-5934JlP4% (BldA) [Mass fraction]93 %Rajni Steiner DO Work Phone: [facility] Nsddzi92-80-9802 13:10-0500Systolic blood ebnjrikn851 mm[Hg]Rajni Steiner DO Work Phone: [facility] Aztxvi62-52-8265 10:36-0400Body mxbfsi027.3 Aneta Giles MD Work Phone: [phone] [employer] Gzrseb04-62-5437 10:36-0400Body mass index (BMI) [Ratio]33.7 kg/x7QdxkvxSaqib Giles MD Work Phone: [phone] [employer] Furdwg93-24-3884 10:36-0400Body ovfobr312.51 kgThlashell Giles MD Work Phone: [phone] [employer] Xgqbop84-30-1653 10:36-0400Diastolic blood lerqczwx80 mm[Hg]Saqib Giles MD Work Phone: [phone] Buazme08-48-6861 10:36-0400Heart rate 71 /minThlashell Giles MD Work Phone: [phone] [employer] Llolge00-56-7205 10:36-4088RiS8% (BldA) [Mass fraction]93 %Saqib Giles MD Work Phone: [phone] [employer] Igjaju61-19-5902 10:36-0400Systolic blood gunzvohc782 mm[Hg]Saqib Giles MD Work Phone: [phone] [address] Yxcbfm25-84-0552 13:02-0400Body .3 cmRajni Steiner Work Phone: [facility] Mkjlon78-61-1062 13:02-0400Body mass index (BMI) [Ratio]33.4 kg/m2Rajni Steiner DO Work Phone: [facility] Nflupa23-50-1948 13:02-0400Body yqvumodcqvz56.01 [degF]Rajni Steiner DO Work Phone: [facility]09-09-2024 13:02-0400Body igstwa879.6 kgJoabby Steiner DO Work Phone: [facility]09-09-2024 13:02-0400Diastolic blood nkvqgyvr90 mm[Hg]Rajni Steiner DO Work Phone: [facility]09-09-2024 13:02-0400Heart rate 90 /minJoabby Steiner DO Work Phone: [facility]09-09-2024 13:023242SaK5% (BldA) [Mass fraction]93 %Rajni Steiner DO Work Phone: [facility]09-09-2024 13:02-040Systolic blood wigtmpdx192 mm[Hg]Rajni Steiner DO Work Phone: [facility]08-13-2024 19:58-0400Body .[address]08-13-2024 19:58-0400Body mass index (BMI) [Ratio]35.15 kg/m2Pmh [address] [place], [place] 2283008-13-2024 19:58-0400Body fokdbf257.[address] [place], [place] 2283007-08-2024 15:46-0400Diastolic blood ijgwefgt25 mm[Hg]Rajni Steiner DO Work Phone: [facility]07-08-2024 15:46-0400Systolic blood gcbxibbx174 mm[Hg]Rajni Steiner DO Work Phone: [facility]07-08-2024 15:44-0400Body cmjlam019.3 cmJoabby Steiner DO Work Phone: [facility]07-08-2024 15:44-0400Body mass index (BMI) [Ratio]35.74 kg/m2Joabby Steiner DO Work Phone: [facility] Zayrgo40-00-5115 15:44-0400Body aiqiayxwfub27.9 [degF]Rajni Steiner DO Work Phone: [facility]07-08-2024 15:44-0400Body mvcbcu374.77 kgRajni Steiner DO Work Phone: [facility] Swqkiz94-81-7566 15:44-0400Heart rate 83 /minRajni Steiner DO Work Phone: [facility]07-08-2024 15:44-3638VxD1% (BldA) [Mass fraction]96 %Rajni Steiner DO Work Phone: [facility]06-05-2024 13:38-0400Body efmmsg527.3 cmRajni Steiner DO Work Phone: [facility]06-05-2024 13:38-0400Body mass index (BMI) [Ratio]35.99 kg/m2Rajni Steiner DO Work Phone: [facility] Sxfqit89-29-4170 13:38-0400Body ayzkevzojzv29.8 [degF]Rajni Steiner DO Work Phone: [facility]06-05-2024 13:38-0400Body ntzthy499.54 kgRajni Steiner DO Work Phone: [facility]06-05-2024 13:38-0400Diastolic blood oxnssmam58 mm[Hg]Rajni Steiner DO Work Phone: [facility] Rxrkxs22-24-9559 13:38-0400Heart rate 82 /minRajni Steiner DO Work Phone: [facility]06-05-2024 13:38-0400 Respiratory rate18 /Frances Steiner DO Work Phone: [facility]06-05-2024 13:38-3052IlP5% (BldA) [Mass fraction]93 %Rajni Steiner DO Work Phone: [facility]06-05-2024 13:38-0400Systolic blood mm[Hg]Rajni Steiner DO Work Phone: [facility]05-30-2024 11:15-0400Diastolic blood mm[Hg]Kacey Stephens [employer] Work Phone: [facility]05-30-2024 11:15-9615FhD7% (BldA) [Mass fraction]91 %Kacey Stephens [employer] Work Phone: [facility]05-30-2024 11:15-0400Systolic blood upytrpaz502 mm[Hg]Kacey Stephens [employer] Work Phone: [facility]05-30-2024 11:11-0400Body ggiqgh673.3 cmKacey Stephens [employer] Work Phone: [facility]05-30-2024 11:11-0400Body mass index (BMI) [Ratio]36.56 kg/m2Kacey Stephens [employer] Work Phone: [facility]05-30-2024 11:11-0400Body lnqvhmkmzpe67.7 [degF]Kacey Stephens [employer] Work Phone: [facility]05-30-2024 11:11-0400Body kcjsia804.31 kgKacey Stephens ME[employer] AP[employer]ICE[employer] Work Phone: [facility]05-30-2024 11:11-0400Heart rate 70 /minKacey Stephens [employer] Work Phone: [facility]05-30-2024 11:11-0400 Respiratory rate24 /minKacey Stephens ME[employer] AP[employer] Work Phone: [facility]05-15-2024 13:36-0400Diastolic blood mm[Hg]Rajni Steiner DO Work Phone: [facility]05-15-2024 13:36-0400Systolic blood iouhkunx365 mm[Hg]Rajni Steiner DO Work Phone: [facility]05-15-2024 13:04-0400Body zjnfex195.3 cmJoabby Steiner DO Work Phone: [facility]05-15-2024 13:04-0400Body mass index (BMI) [Ratio]37.07 kg/m2Joabby Steiner DO Work Phone: [facility]05-15-2024 13:04-0400Body qgjuciddcsq69.59 [degF]Rajni Steiner DO Work Phone: [facility]05-15-2024 13:04-0400Body iudiwm728.85 kgJoabby Steiner DO Work Phone: [facility]05-15-2024 13:04-0400Heart rate 88 /minJoabby Steiner DO Work Phone: [facility]05-15-2024 13:04-9022UbF8% (BldA) [Mass fraction]93 %Rajni Steiner DO Work Phone: [facility]04-16-2024 20:38-0400Body lyfsqv379.[address]04-16-2024 20:38-0400Body mass index (BMI) [Ratio]38.1 kg/m[address]04-16-2024 20:38-0400Body dnofgd382.[address] [place], [place] 2283004-15-2024 13:53-0400Diastolic blood gkemxxkp23 mm[Hg]Rajni Steiner DO Work Phone: [facility]04-15-2024 13:53-0400Systolic blood gfmzyvnd634 mm[Hg]Rajni Steiner DO Work Phone: [facility] Vtwzwj49-07-2985 13:05-0400Body jwasgn112.3 cmRajni Steiner DO Work Phone: [facility] Fgwcdr58-09-5887 13:05-0400Body mass index (BMI) [Ratio]38.03 kg/m2Rajni Steiner DO Work Phone: [facility] Yubvng58-85-5591 13:05-0400Body fzizfeejgnf34.6 [degF]Rajni Steiner DO Work Phone: [facility] Xtiwac64-58-3505 13:05-0400Body .8 kgRajni Steiner DO Work Phone: [facility] Cpuibo21-44-8105 13:05-0400Heart rate 76 /minRajni Steiner DO Work Phone: [facility] Bohmla34-37-5151 13:05-0400 Respiratory rate18 /minRajni Steiner DO Work Phone: [facility] Eilxyd87-16-3463 13:05-4909XrP1% (BldA) [Mass fraction]93 %Rajni Steiner DO Work Phone: [facility] Uukvzz65-01-0477 11:00-0400Body cukrmyaxiae20.01 [degF]Rajni Steiner DO Work Phone: [facility] Thvqgl34-39-1897 11:00-0400Diastolic blood qgflukym91 mm[Hg]Rajni Steiner DO Work Phone: [facility] Kczjhw18-70-5994 11:00-0400Heart rate 85 /minRajni Steiner DO Work Phone: [facility] Lwnikh71-50-2079 11:00-0400 Respiratory rate22 /minRajni Perrys DO Work Phone: [facility] Ahyuud24-69-7650 11:00-2811JdZ8% (BldA) [Mass fraction]93 %Rajni Steiner DO Work Phone: [facility]04-01-2024 11:00-0400Systolic blood cazpymnr921 mm[Hg]Rajni Steiner DO Work Phone: [facility]PolyIn[facility]04-01-2024 05:57-0400Body mass index (BMI) [Ratio]33.77 kg/m2Rajni Steiner DO Work Phone: [facility] Zrysau41-21-9726 05:57-0400Body cikqpi385.74 kgRajni Steiner DO Work Phone: [facility] Dcoufk86-52-6997 19:05-0400Body htkipf488.3 cmRajni Steiner DO Work Phone: [facility]03-30-2024 17:52-0400Body mflsxdywvck03.6 [degF]Rajni Steiner DO Work Phone: [facility] Abjdty30-12-0150 17:52-7058VsH4% (BldA) [Mass fraction]95 %Rajni Steiner DO Work Phone: [facility] Xifrix39-36-0525 14:20-0500Body .3 cmRajni Steiner DO Work Phone: [facility]03-06-2024 14:20-0500Body mass index (BMI) [Ratio]38.42 kg/m2Rajni Steiner DO Work Phone: [facility]03-06-2024 14:20-0500Body pzolhnihrdj55.1 [degF]Rajni Steiner DO Work Phone: [facility]03-06-2024 14:20-0500Body euxpeu064.03 kgRajni Steiner DO Work Phone: [facility]03-06-2024 14:20-0500Diastolic blood mm[Hg]Rajni Yuhas DO Work Phone: [facility] Basgke59-48-1336 14:20-0500Heart rate 70 /minJoabby Steiner DO Work Phone: [facility] Khrcsw34-33-4103 14:20-9531BgR8% (BldA) [Mass fraction]96 %Rajni Steiner DO Work Phone: [facility] Rcpsup76-51-5062 14:20-0500Systolic blood ankmafub159 mm[Hg]Rajni Steiner DO Work Phone: [facility] Loihjz15-33-0613 10:18-0500Body lisznt990.3 cmSye Meadows DO Work Phone: [facility] Hkgcdb83-54-7944 10:18-0500Body mass index (BMI) [Ratio]37.08 kg/n0BmvcugGrace Meadows DO Work Phone: [facility] Ozwcoc15-59-1782 10:18-0500Body cdstbi947.9 kgGrace Meadows DO Work Phone: [facility] Uyktqv73-14-3727 10:18-0500Diastolic blood gkxgkyss13 mm[Hg]Grace Meadows DO Work Phone: [facility] Fthfin98-41-4150 10:18-0500Heart rate 75 /minSye Meadows DO Work Phone: [facility] Sfagmc60-10-6642 10:18-1488QkN2% (BldA) [Mass fraction]96 %Grace Meadows DO Work Phone: [facility] Mpcctq17-83-2679 10:18-0500Systolic blood mm[Hg]Grace Meadows DO Work Phone: [facility]02-05-2024 13:59-0500Body emzgcc079.3 cmRajni Steiner DO Work Phone: [facility] Rlahlz52-26-5996 13:59-0500Body mass index (BMI) [Ratio]38.59 kg/m2Rajni Steiner DO Work Phone: [facility] Jfsyyq97-30-3877 13:59-0500Body lufemyafdgm99.39 [degF]Rajni Steiner DO Work Phone: [facility] Llkysw67-83-1650 13:59-0500Body .53 kgRajni Steiner DO Work Phone: [facility]02-05-2024 13:59-0500Diastolic blood qczpijxc53 mm[Hg]Rajni Steiner DO Work Phone: [facility]02-05-2024 13:59-0921McF6% (BldA) [Mass fraction]95 %Rajni Steiner DO Work Phone: [facility]02-05-2024 13:59-0500Systolic blood ajvuhyxb546 mm[Hg]Rajni Steiner DO Work Phone: [facility]12-28-2023 07:01-6508XxQ5% (BldA) [Mass fraction]95 %WILBER Alvarado [facility] HospitalComment on above: Performed By: #### ABG ####[facility] ([id number])[address] [place] [address] [id number] 07:43-3461IiM6% (BldA) [Mass fraction]93 %WILBER Caalca [facility] HospitalComment on above:Performed By: #### ABG #### [facility] ([id number]) [address] [place], [place] 8386073-26-4262 10:09-0080ByM9% (BldA) [Mass fraction]93 %WILBER FRASER [facility] HospitalComment on above:Performed By: #### CMP, 99588-4, 07094-3, CBCA #### [facility] ([id number]) [address] [place], [place] 5626586-04-4132 07:52-1016RmC4% (BldA) [Mass fraction]93 %WILBER Cavazos [facility] Phoenix HospitalComment on above:Performed By: #### CMP, 25840-7, 85287-3, CBCA #### [facility] ([id number]) [address] [place], [place] [id number] 06:48-5776LjG4% (BldA) [Mass fraction]94 %WILBER Raineydch regional medical centermindi [facility] Phoenix HospitalComment on above:Performed By: #### CMP, 01595-8, 52373-8, CBCA #### [facility] ([id number]) [address] [facility] [place], [place] [id number] 07:26-5821WzG9% (BldA) [Mass fraction]95 %WILBER Raineydch regional medical centermindi [facility] HospitalComment on above:Performed By: #### ABG #### [facility] ([id number]) [address] [place], [place] 1557921-97-5779 08:40-0400Body heightDahernan Carson Other [employer] Other Phone: [phone] 08:40-0400Body mass index (BMI) [Ratio] 38.83 kg/m2John Carson Other [employer] Other Phone: [phone] 08:40-0400Body hmlvvo551.3 kgJohn Carson Other [employer] Other 08-17-2023 08:40-0400Diastolic blood liqtvcbi19 mm[Hg] John Carson Other [employer] Other 08-17-2023 08:40-0400Systolic blood oklvsnpt370 mm[Hg] John Carson Other [employer] Other Encounters Encounter DateEncounter TypeCare ProviderFacilityStart: 02-24-2025 End: 54-19-1773TbinpeBoim L Yuhas DO Work Phone: [facility] MedicineComment on above:Gastro-esophageal reflux disease without esophagitisMed RefillStart: 02-22-2025 End: 02-93-0850Xwrrtxiyo department patient visitRAJNI [facility]ictart: 02-20-2025 End: 49-19-7785Qirygk-up encounterKacey Sims [facility] - Heart Failure ClinicComment on above:Basic Metabolic PanelStart: 07-19-8926shkuvwprmsKEOS M [facility]tart: 02-13-2025 End: 94-87-4571rjvbvjgpmkDusvena Vytheather Giedraitis MDFacility:PM [place] Start: 02-09-2025 End: 45-78-4447Ynpdnnagu department patient visitJOABBY [facility] [place] [facility]ictart: 02-08-2025 End: 55-31-7801Hcxblwtra encounterSydnie Guerrero DO Work Phone: [facility]: 02-06-2025 End: 57-40-4959Tqmoocezq encounterTosin Reyes [facility]AM[facility]: 02-06-2025 End: 50-09-3588yzlgdkqkrwQUGH M [facility]: 02-06-2025 End: 00-34-7445Wraztu outpatient visit 25 minutesRisa Summers MD Work Phone: [facility] - Heart Failure ClinicComment on above:Chronic diastolic heart failure (CMS-HCC) (Primary Dx); Pulmonary hypertension (CMS-HCC); Nonrheumatic tricuspid valve regurgitationStart: 02-03-2025 End: 88-36-7866Jsrmhrwdv encounterAntoinette Sanchez CNAProMedica Heart Failure ClinicStart: 01-25-2025 End: 35-32-6381Tuospvtkg encounterLeannhernando Magnolia Guerrero DO Work Phone: [facility] MedicineStart: 01-04-2025 End: 55-74-4592Hkkhkmverz and management of inpatientRAJNI [facility] HospitalStart: 01-03-2025 End: 74-95-1016qdqmbjrnksBkd Pat Phone Call Provider [address] [place] [address] AdmitStart: 01-03-2025 End: 58-19-0557Gpxydvokx encounterScarletthernando Merida Cesar DO Work Phone: [facility] MedicineStart: 01-03-2025 End: 67-22-6543mfqjrrczqtKJAG L [place] Clinictart: 12-28-2024 End: 42-34-4933PhlfpcRqqp L Obdulia DO Work Phone: [facility] - Family MedicineComment on above: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Basic Metabolic PanelStart: 12-27-2024 ambulatoryRAJNI Cardoso [place] Clinictart: 12-21-2024 End: 65-94-0743grpovxyurtROBIOM A PRUIETTKettering Memorial Hospital HospitalStart: 12-19-2024 End: 12-36-8572rdudldnvafBsn Pat Phone Call Provider [address] [place] [address] AdmitStart: 12-19-2024 End: 16-51-0448vqeyklxtonETBE L [facility] HospitalStart: 12-19-2024 End: 74-74-0058puweznowjoBndmgtb Saadia Root MDFacility:PM [place] Start: 12-15-2024 End: 18-39-5595Bnsssp-up encounterRajni Steiner DO Work Phone: [facility] - Family MedicineComment on above:Basic Metabolic PanelStart: 12-15-2024 End: 97-70-1299Hjygqglngefv care manage srvc 14 day dischargeRajni Steiner DO Work Phone: [facility] - Family MedicineComment on above:Microcytic anemia (Primary Dx); Gastro-esophageal reflux disease without esophagitis; Stage 3a chronic kidney disease ([facility]); Spinal stenosis of lumbar region with neurogenic claudicationStart: 12-15-2024 End: 80-98-5328gpvoudjrnoXEOZ L [facility]PGStart: 48-37-2634vmyxlgaactYYAQ L [facility] HospitalStart: 12-12-2024 End: 86-75-0100Wlxoze-up encounterSaint Clare'S Hospital At Doverlivia LeviDunlap Memorial Hospital Heart Failure ClinicComment on above:Basic Metabolic PanelStart: 59-51-9472axodpmfzyzBXAYFS A PRUIETTKettering [facility] HospitalStart: 12-08-2024 End: 66-40-2721Huhfiqdxk encounterLiz Norman [facility] Internal Medicine - Family MedicineComment on above:Transition Of CareStart: 12-04-2024 End: 08-15-6908Rbstxxlwqo and management of inpatientRJANI Cardoso [facility] HospitalStart: 12-03-2024 End: 58-14-8661Lqljeyvhsw and management of inpatientRAJNI PERRYSouthview [facility] HospitalStart: 11-30-2024 End: 32-74-8817Gvnwpe-up encounterSaint Clare'S Hospital [facility] Doverlivia [facility] Heart Failure ClinicComment on above:Basic Metabolic PanelStart: 11-29-2024 End: 48-82-9526Wkxbql-up encounterRajni Steiner DO Work Phone: [facility] Internal Medicine - Family MedicineComment on above:X-ray knee right 3 viewsStart: 59-20-4933ohyyrpbhpulionel TorrezAshtabula County Medical Center HospitalStart: 11-28-2024 End: 19-85-1780qevzchmyfiNAFG L [facility] Clinictart: 11-28-2024 End: 03-19-3771Huextd outpatient visit 25 minutesOdessa Cook MEAT APPRENTICE-INTERNET DESIGNER Work Phone: [facility] - Heart Failure ClinicComment on above:Chronic heart failure with preserved ejection fraction ([facility]-HCC) (Primary Dx); Pulmonary hypertension ([facility]); Nonrheumatic tricuspid valve regurgitation; Essential hypertension; Atherosclerosis of caddo coronary artery of caddo heart without angina pectoris; History of four vessel coronary artery bypass graft; NSTEMI (non-ST elevated myocardial infarction) ([facility])Start: 11-28-2024 End: 48-79-4561ghkvdtvrnjOJKWGS A PRUIETTDelaware County Hospitaltart: 11-23-2024 End: 98-12-1314NmcenxOqtr L Yuhas DO Work Phone: [facility] Internal Medicine - Family MedicineComment on above:Peripheral polyneuropathyStart: 11-14-2024 End: 75-47-3267jysfaipbcjQdkomvv Vytautas Giedraitis MDFacility:PM [place] Start: 11-07-2024 End: 34-21-8067Hkodgv outpatient visit 25 minutesRajni Perrys DO Work Phone: [facility] Internal Medicine - Family MedicineComment on above:Hiatal hernia with GERD (Primary Dx); Stage 3a chronic kidney disease ([facility]); Patellar tendinitis of right knee; Gastro-esophageal reflux disease without esophagitis; Venous insufficiency of both lower extremitiesStart: 11-07-2024 End: 79-22-9032lpumqcbreoJTSO [facility] Ambulatory PPGStart: 11-02-2024 End: 95-71-8988Vlfwxg-up encounterRajni Steiner DO Work Phone: [facility] Internal Medicine - Family MedicineComment on above:Fluoroscopy upper GI with esophagusStart: 11-02-2024 End: 22-35-0196xkasdrktcqRTOC [facility] Avontart: 10-27-2024 End: 42-53-9597Ymldhc outpatient visit 25 minutesRajni Perrys DO Work Phone: [facility] - Family MedicineComment on above:Type 2 diabetes mellitus with stage 3a chronic kidney disease, without long-term current use of insulin ([facility]) (Primary Dx); Venous insufficiency of both lower extremities; Chronic heart failure with preserved ejection fraction ([facility]-HCC); Stage 3a chronic kidney disease ([facility]); Nausea and vomiting, unspecified vomiting type; Arthritis of left sacroiliac jointStart: 10-27-2024 End: 09-49-9125fcrqpgimzhALFGNYU Langone Health Ambulatory PPGStart: 10-13-2024 End: 76-13-7642XeqaohElpn L Yuhaumair DO Work Phone: [facility] - [facility] HospitalComment on above:Peripheral polyneuropathyStart: 25-11-5852thzsodfhtdChino Valley Medical Centertart: 10-07-2024 End: 56-26-0986eqfnduadnoVXVWElbert Memorial Hospital Ambulatory PPGStart: 10-07-2024 End: 85-38-8204Lysnca outpatient visit 25 minutesRajni Steiner DO Work Phone: [facility] - Family [facility] HospitalComment on above:Cervicogenic headache (Primary Dx); Orthostatic hypotension; Chronic heart failure with preserved ejection fraction ([facility]); Fibromyalgia syndromeStart: 09-21-2024 End: 00-18-9827Tqaqyk outpatient visit 15 minutesSydnie Guerrero DO Work Phone: noms FNR PULMComment on above:Chronic obstructive pulmonary disease, unspecified COPD type ([facility]/HCC) (Primary Dx); Chronic respiratory failure with hypoxia and hypercapnia ([facility]); BONY (obstructive sleep apnea)Start: 09-21-2024 End: 10-27-2187eiasqkpetdEKTYLH K STRACKNot AvailableStart: 09-21-2024 End: 50-90-3520Rxwavj flowsElba Guerrero DO Work Phone: noms FNR PULMStart: 09-21-2024 End: 56-46-7179Jbvngc flowsElba Guerrero DO Work Phone: NOMS FNR PULMStart: 09-04-2024 End: 14-73-7507NslcotOwce L Yuhas DO Work Phone: [facility] Internal Medicine - Family MedicineComment on above:Peripheral polyneuropathyStart: 09-01-2024 End: 99-32-3863Dhvvos outpatient visit 25 Jayson Peacock MD Work Phone: [facility] Physicians CardiologyComment on above: Chronic heart failure with preserved ejection fraction (CMS-HCC) (Primary Dx); 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; Hx of CABGStart: 09-01-2024 End: 58-46-3819muqcikdtgcTDFQOFairmont Rehabilitation and Wellness Centertart: 07-15-2024 End: 22-17-5461PsqvbdLhhuShore Memorial Hospital Physicians CardiologyComment on above:Med RefillStart: 07-15-2024 End: 06-33-8781XrmqclTznp L Yuhas DO Work Phone: [facility] Internal Medicine - Family MedicineComment on above:Gastro-esophageal reflux disease without esophagitis Start: 07-07-2024 End: 92-15-5321occqxoqnicYKPTDoctors Hospitaltart: 07-07-2024 End: 37-57-7135nttnogfpbvUHYPNorth Texas Medical CenterStart: 07-07-2024 End: 01-09-7011Udjxen outpatient visit 25 Spring Steiner DO Work Phone: [facility] Internal Medicine - Family MedicineComment on above:IFG (impaired fasting glucose) (Primary Dx); Chronic obstructive pulmonary disease, unspecified COPD type (CMS-HCC); Stage 3a chronic kidney disease (CMS-HCC); Chronic respiratory failure with hypoxia and hypercapnia (CMS-HCC); Chronic heart failure with preserved ejection fraction (CMS-HCC); Bipolar 2 disorder, major depressive episode ([facility]-HCC); BMI 40.0-44.9, adult ([facility]-HCC); 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); B12 deficiency; Peripheral polyneuropathy; Arthritis of left sacroiliac joint ([facility]-HCC)Start: 05-14-2024 End: 80-01-8108VhetoxPiyq L Yusunshine DO Work Phone: [facility] Internal Medicine - Family MedicineComment on above:Peripheral polyneuropathyStart: 04-25-2024 End: 25-21-5736FygizuPaxqqe [facility] Physicians CardiologyComment on above:Med RefillStart: 04-07-2024 End: 10-58-8080MuyaxkEomgzmzk Noah MEAT APPRENTICE-INTERNET DESIGNER Work Phone: [facility] Physicians CardiologyComment on above:Med RefillStart: 03-29-2024 End: 46-67-8003iagahsckqvWVGZNYU Langone Health Ambulatory PPGStart: 03-29-2024 End: 75-96-7104Pjjlfk outpatient visit 25 minutesRajni Steiner DO Work Phone: [facility] Internal Medicine - Family MedicineComment on above:Contusion of lower leg, unspecified laterality, initial encounter (Primary Dx)Start: 03-29-2024 End: 88-12-9894Wuyftuimn encounterMisty Preston [facility] SurgeryMedica Physicians Internal Medicine - Family MedicineStart: 03-21-2024 End: 32-02-0578ifeklgqyegSdcqhwm Saadia Root MDFacility:PM [place] Start: 03-17-2024 End: 77-99-1504Ctcwzc [employer] EQUIPMENTElba Guerrero DO Work Phone: noms PULMStart: 03-17-2024 End: 61-73-4783Lmdrpu [employer] EQUIPMENTEbla Guerrero DO Work Phone: noms PULMStart: 03-17-2024 End: 73-61-5013Gqiptb outpatient new 45 minutesSydnie Guerrero DO Work Phone: noms PULMComment on above:Chronic obstructive pulmonary disease, unspecified COPD type (CMS/HCC) (Primary Dx); Chronic respiratory failure with hypoxia and hypercapnia (CMS/HCC); Cigarette smokerStart: 03-17-2024 End: 35-50-5889cutzsibmztYGGCOJVicente Carvajal AvailableStart: 03-09-2024 End: 53-70-9324KulqkfLvrh L Vickyumair DO Work Phone: [facility] Internal Medicine - Family MedicineComment on above:Gastro-esophageal reflux disease without esophagitis Start: 03-07-2024 End: 67-23-8395cwygebgyhoQZZFMarion Hospitaltart: 03-07-2024 End: 05-41-7730Lsfnoe outpatient visit 25 minutesRajni Steiner DO Work Phone: [facility] Internal [facility] - Family MedicineComment on above:IFG (impaired fasting glucose) (Primary Dx); Peripheral polyneuropathy; Stage 3a chronic kidney disease (CMS-HCC); Chronic heart failure with preserved ejection fraction (CMS-HCC); 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 (CMS-HCC) (Primary Dx)Start: 02-18-2024 End: 15-79-9851Vrnjkxqeg encounterJennifer Lachner [facility] SYSTEMProMedica Physicians CardiologyStart: 02-09-2024 End: 01-83-2031Ffvxtp flowsLino Huertas DO Work Phone: noms CI ORTHOPAEDICSStart: 02-09-2024 End: 96-08-5845Asrddm flowsLino Huertas DO Work Phone: noms CI ORTHOPAEDICSStart: 02-09-2024 End: 16-06-3423jaapcfidxdOUWFS A ALEKSANDARNot AvailableStart: 02-09-2024 End: 82-90-7945Hicxpe outpatient visit 10 minutesEusebia Huertas DO Work Phone: noms CI ORTHOPAEDICSComment on above:Trigger point of left side of body (Primary Dx); Arthritis of left sacroiliac joint (CMS/HCC); Lumbosacral pain; Pain of left sacroiliac jointStart: 02-03-2024 End: 30-31-2199Ybsljgfzr encounterFior Scott [facility] SYSTEMPro[facility]ica Physicians Internal Medicine - Family MedicineStart: 02-01-2024 End: 09-72-8804Ppighbqnm encounterSye Meadows DO Work Phone: [facility] Pulmonary/Sleep MedicineStart: 01-26-2024 End: 20-82-2724Hactvo outpatient visit 15 minutesEusebia Huertas DO Work Phone: noms CI ORTHOPAEDICSComment on above:Left shoulder pain, unspecified chronicity (Primary Dx); Arthritis of left shoulder regionStart: 01-26-2024 End: 96-52-3167piyvihtuagURHUM A HUDLITAKARLANot AvailableStart: 01-21-2024 End: 89-54-4835Jahpzj Rajinder Buchanan APRN-INTERNET DESIGNER Work Phone: [facility]ca Heart Failure ClinicComment on above:Chronic heart failure with preserved ejection fraction (CMS-HCC)Start: 01-20-2024 End: 39-47-5519KecmjwWibtu Bruce MERCADOOchsner Medical Centergenet Physicians CardiologyComment on above:Med RefillStart: 01-20-2024 End: 21-53-7463QjvulrDzws L Yuhas DO Work Phone: [facility] Internal Medicine - Family MedicineComment on above:Spinal stenosis of lumbar region with neurogenic claudicationMed Change RequestStart: 01-19-2024 End: 27-02-1238Woxfxsvya encounterAnabela Cueva [facility] Physicians Cardiology Start: 01-18-2024 End: 65-03-0966ThjffvGgqiuw [facility] Physicians CardiologyComment on above:Med RefillStart: 14-47-1458dsswrfdhclKVISXN [facility] [place] Ambulatory PPGStart: 01-12-2024 End: 71-76-1763Kiicwn flowsLino Huertas DO Work Phone: noms CI ORTHOPAEDICSStart: 01-12-2024 End: 11-60-3114Jlrsqw Yelena Huertas DO Work Phone: noms CI ORTHOPAEDICSStart: 01-12-2024 End: 91-18-3789zzlzhdpotkRHZZP A HUDDLESTONNot AvailableStart: 01-12-2024 End: 40-06-1789Oybhaw outpatient visit 10 minutesEusebia Huertas DO Work Phone: noms CI ORTHOPAEDICSComment on above:Trigger point of left side of body (Primary Dx)Start: 01-07-2024 End: 64-26-9734Mksqrnixl encounterSofya Coe [facility] Physicians Internal Medicine - Family MedicineStart: 01-04-2024 End: 26-81-7055jffasmqebxUNYJ L YUHAAndi [facility]phal[facility] HospitalStart: 01-04-2024 End: 38-19-8362Xxbyvm outpatient visit 25 minutesRajni Steiner DO Work Phone: [facility] Internal Medicine - Family MedicineComment on above:Chronic respiratory failure with hypoxia and hypercapnia (CMS-HCC) (Primary Dx); BONY treated with BiPAP; Spinal stenosis of lumbar region with neurogenic claudication; Chronic heart failure with preserved ejection fraction (CMS-HCC)Start: 01-04-2024 End: 20-92-6350udbghiweyyOHVDElbert Memorial Hospital Ambulatory PPGStart: 01-01-2024 End: 29-64-0809JlsbbeSqtk L Yuhas DO Work Phone: [facility] Internal Medicine [facility] CenterComment on above:Spinal stenosis of lumbar region with neurogenic claudicationStart: 12-30-2023 End: 16-81-2525Tbsselwkg encounterMisty Preston ELIANProMedica Physicians Internal Medicine [facility] MedicineStart: 12-29-2023 End: 99-00-7431Bgvhxv [employer] EQUIPMENToscarEnrriquecristina Mindi Aleksandar DO Work Phone: noms CI ORTHOPAEDICSStart: 12-29-2023 End: 47-74-2987Noziyf [employer] EQUIPMENTheetEusebia Mindi Aleksandar DO Work Phone: noms CI ORTHOPAEDICSStart: 12-29-2023 End: 04-73-1424Xpxydp outpatient visit 25 minutesJacristina Mindi Aleksandar DO Work Phone: noms CI ORTHOPAEDICSComment on above:Trigger point of left side of body (Primary Dx); Compression fracture of T6 vertebra with routine healing, subsequent encounter; Compression fracture of T8 vertebra with routine healing, subsequent encounter; Osteoporotic compression fracture of vertebra with routine healing, subsequent encounterStart: 12-29-2023 End: 39-72-4557slwiroripbBWKRI A HUDDLESTONNot AvailableStart: 12-24-2023 End: 52-94-4165Iejelqtgp encounterMisty Preston DanicaMed[facility] Physicians Internal Medicine [facility] MedicineStart: 12-17-2023 End: 52-87-2664Mpgkkqrhz encounterRoxanne E LafountainProMedica Physicians Pulmonary/Sleep MedicineStart: 12-15-2023 End: 53-50-4154Nfclbkeuf encounterRoxanne E LafountainProMedica Physicians Pulmonary/Sleep MedicineStart: 12-10-2023 End: 01-86-0728Pyapukhjy encounterKaia Jovel MD Work Phone: [facility]ENTERCA PHYSICIANS PULMONARY & SLEEPStart: 12-08-2023 End: 81-32-8509Hsmkolrb SupportSye Meadows DO Work Phone: [facility] - Sleep Disorders Comment on above:ArrivedStart: 11-19-2023 End: 77-68-2465Cbqogjimr encounterTosin Reyes [facility] Physicians Internal Medicine - Family MedicineStart: 11-03-2023 End: 73-27-8050RawgcdAgrn L Yuhas DO Work Phone: [facility] Physicians Internal Medicine - Family MedicineComment on above:Fibromyalgia syndromeStart: 11-02-2023 End: 40-95-9039cqwfqodvkjYQPU L YUHASProMedOhioHealth Grant Medical Centertart: 11-02-2023 End: 72-22-6343Wgjyav outpatient visit 25 minutesJohn L Yuhas DO Work Phone: [facility] Physicians Internal Medicine - Family MedicineComment on above:Venous insufficiency of both lower extremities (Primary Dx); Chronic heart failure with preserved ejection fraction (CMS-HCC); Acute pulmonary embolism without acute cor pulmonale, unspecified pulmonary embolism type (CMS-HCC); B12 deficiencyStart: 10-30-2023 End: 88-27-8479EnxctiMdaztf R Rettig MEAT APPRENTICE-INTERNET DESIGNER Work Phone: [facility] - Heart Failure ClinicComment on above:Shortness of breath; Chronic heart failure with preserved ejection fraction (CMS-HCC)Start: 10-27-2023 End: 31-01-9693itiwnvdplnJVWQF A HUDDLESTONNot AvailableStart: 10-21-2023 End: 96-24-7187NtasyuNaba L Yuhas DO Work Phone: [facility] Physicians Internal Medicine - Family MedicineStart: 10-07-2023 End: 48-08-8407Ejqiejfjy encounterDaisha Marquez [facility] Physicians General SurgeryStart: 10-06-2023 End: 11-63-7512XnjyntNnxz L Yuhas DO Work Phone: [facility] Physicians Internal Medicine - Family MedicineComment on above:Spinal stenosis of lumbar region with neurogenic claudication (Primary Dx)Start: 10-02-2023 End: 03-55-7417CnsobqFjpabt R Rettig MEAT APPRENTICE-INTERNET DESIGNER Work Phone: [facility] - Heart Failure ClinicComment on above:Chronic heart failure with preserved ejection fraction (CMS-HCC); Atherosclerosis of caddo coronary artery of cadd[place] heart without angina pectorisStart: 10-01-2023 End: 51-85-4600QbvrquTmntg PrestonPhysicians Regional [facility] Center Physicians Internal Medicine - Family MedicineComment on above:Closed wedge compression fracture of T6 vertebra with routine healingStart: 09-30-2023 End: 35-63-4011idapykvxajXYAW L YULakeHealth TriPoint Medical Centertart: 09-30-2023 End: 63-99-5611Kmvoqa outpatient visit 25 minutesRajni Steiner DO Work Phone: [facility] Physicians Internal Medicine - Family MedicineComment [...] claudication; Peripheral polyneuropathy; B12 deficiencyStart: 09-24-2023 End: 30-66-0126Amncma outpatient visit 25 minutesKacey Stephens MEAT APPRENTICE-PAWN BROKER Work Phone: [facility] Physicians Internal Medicine - Family MedicineComment on above:Flu-like symptoms (Primary Dx); Community acquired pneumonia, unspecified laterality; Chronic heart failure with preserved ejection fraction (CMS-HCC)Start: 09-22-2023 End: 92-22-7974TzmbdhWitbt PrestonPhysicians Regional [facility] Center Physicians Internal Medicine - Family MedicineComment on above:Closed wedge compression fracture of T6 vertebra with routine healingStart: 09-10-2023 End: 63-88-4651PkfidrAohi L Yuhas DO Work Phone: [facility] Physicians Internal Medicine - Family MedicineComment on above:Gastro-esophageal reflux disease without esophagitis Start: 09-09-2023 End: 04-59-8862Fhfehpkdiswr care manage srvc 14 day dischargeFaithabby Steiner DO Work Phone: [facility] Internal Medicine - Family MedicineComment on above:Closed wedge compression fracture of T6 vertebra with routine healing (Primary Dx); Acute pulmonary embolism without acute cor pulmonale, unspecified pulmonary embolism type ([facility]-HCC); Spinal stenosis of lumbar region with neurogenic claudicationStart: 08-17-2023 End: 38-68-3095Soszcwrij encounterOrders Support User [facility] - Sleep DisordersComment on above: Sleep Lab (Pap Order)Start: 08-14-2023 End: 20-32-1456JtvddnBpob McVayMagruder Hospital Physicians Pulmonary/Sleep Medicine Comment on above:BONY (obstructive sleep apnea) (Primary Dx); Hypoxemia associated with sleepStart: 08-13-2023 End: 25-52-8510Sdwftqfov encounterKaia Jovel MD Work Phone: [facility] Physicians Pulmonary/Sleep MedicineStart: 08-11-2023 End: 45-82-0569Rdkwovwf SupportSye Meadows DO Work Phone: [facility] - Sleep Disorders Comment on above:BONY treated with BiPAPStart: 08-10-2023 End: 37-40-5895Tuecgjgcsoac care manage srvc 14 day dischargeRajni Steiner DO Work Phone: [facility] Internal Medicine - Family MedicineComment on above:Unilateral groin pain, right (Primary Dx); Spinal stenosis of lumbar region with neurogenic claudication; Chronic respiratory failure with hypoxia and hypercapnia (CMS-HCC); Chronic heart failure with preserved ejection fraction (CMS-HCC); BONY treated with BiPAP; Bipolar disorder in partial remission, most recent episode unspecified type ([facility]-HCC)Start: 08-06-2023 End: 68-99-5281Dyeqkslvm encounterSnereyda Cantor Physicians Pulmonary/Sleep MedicineStart: 29-86-8833Kxqxsxhkk Hay Meadows DO Work Phone: [facility] Pulmonary/Sleep MedicineStart: 07-25-2023 End: 96-29-2500Ylilvwceih and management of inpatientAshimicaela Lock MD Work Phone: [facility] - Acute Care Comment on above:Chronic respiratory failure with hypoxia and hypercapnia (CMS- HCC) (Primary Dx); COPD exacerbation (CMS-HCC); Acute respiratory failure with hypoxia and hypercapnia (CMS-HCC); HypoxiaStart: 07-01-2023 End: 86-55-6473Eailgv outpatient visit 25 minutesJoabby Steiner DO Work Phone: [facility] Physicians Internal Medicine - Family MedicineComment on above:Fibromyalgia syndrome (Primary Dx); Stage 3a chronic kidney disease (CMS-HCC); BONY treated with BiPAP; Chronic heart failure with preserved ejection fraction (CMS-HCC); Obesity (BMI 30-39.9)Start: 90-45-6403Llwbbjeru encounterSye Meadows DO Work Phone: [facility] - Sleep Disorders Comment on above:Sleep Lab (Split Night)Start: 06-25-2023 End: 47-46-4077Gmpboo outpatient visit 25 vinodGrace Meadows DO Work Phone: [facility] Pulmonary/Sleep MedicineComment on above:BONY treated with BiPAP (Primary Dx); Chronic obstructive pulmonary disease, unspecified COPD type (CMS-HCC); Shortness of breath; Cigarette nicotine dependence in remissionStart: 06-01-2023 End: 95-88-0236Wbqjryfhcnwv care manage srvc 7 day dischargeJoabby Steiner DO Work Phone: [facility] Internal Medicine - Family MedicineComment on above:Chronic heart failure with preserved ejection fraction (CMS-HCC) (Primary Dx); Bipolar disorder in partial remission, most recent episode unspecified type (CMS-HCC); 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 (CMS-HCC); BMI 40.0-44.9, adult ([facility]-HCC); BONY treated with BiPAPStart: 71-29-1786Lgvoxo OnlyGrace Meadows DO Work Phone: [facility] Pulmonary/Sleep MedicineStart: 04-28-2023 End: 65-62-8454Luogqrpvse and management of inpatientLAURA [facility] HospitalStart: 04-28-2023 End: 32-54-9411Ytynfquziv and management of inpatientLAURA FELKERKettering Health [facility] HospitalStart: 04-23-2023 End: 42-25-2961Yrwdyrfmii and management of inpatientKARL S [facility] HospitalStart: 04-22-2023 End: 38-76-9392Tcembikvtw and management of inpatientDEAN Jose [facility] HospitalStart: 04-21-2023 End: 01-92-7555Pstnvhquon and management of inpatientDEAN Jose ELKDANIELSt. Mary's [facility] HospitalStart: 04-20-2023 End: 04-79-8164Ecbopfvssb and management of inpatientDEAN Jose AGUEROSt. Mary's [facility] HospitalStart: 04-19-2023 End: 74-68-8235Rtkulweqma and management of inpatientCHERYL Janae RANGELERSKettering Health [facility] HospitalStart: 04-18-2023 End: 15-68-1212Jcdtosbkcj and management of inpatientDEAN Jose [facility] HospitalStart: 04-17-2023 End: 71-03-2689Voggncimqh and management of inpatientDEAN Jose ELKDANIELSt. Mary's [facility] HospitalStart: 04-16-2023 End: 51-17-6331Pmfswqjbic and management of inpatientDEAN Jose ELKDANIELSt. Mary's [facility] HospitalStart: 04-15-2023 End: 28-35-3761Bvmxrexebv and management of inpatientDEAN Jose ELKDANIELSt. Mary's [facility] HospitalStart: 04-15-2023 End: 43-32-1253Tzoikpowin and management of inpatientJAMEY YSABELIZKettering Health [facility] HospitalStart: 04-15-2023 End: 56-55-9691Eishaopqmy and management of inpatientVENU TAJ LEÓN [facility]icL[facility] HospitalStart: 16-52-3711Vtsasy outpatient new 30 minutesDale BraunG [facility] NeurosurgeryStart: 12-11-2022 End: 62-74-3969wofesggkvcUgbxjz Andrew SteinFacility:[facility] Troytart: 12-11-2022 End: 38-60-5745rgdrlvtcdgNTJEFFERSON Fowler Work Phone: [facility] Work Phone: Start: 12-11-2022 End: 33-01-1961Jnyueyp encounter procedureJEFFERSON Fowler Work Phone: [facility] [address] Work Phone: Start: 01-24-2022 End: 17-89-8156ieywlompwxQadxpctpgzx M HassettFacility:[facility] Troytart: 01-07-2018 End: 37-96-8919Ttguldwjf department patient visitRhabdulaziz Fernandez Facility:[facility] Procedures DateProcedureProcedure DetailPerforming ClinicianStart: 91-02-6134Lgiws metabolic panel calcium totalJohn L Yuhas DO Work Phone: Start: 76-46-1898Iidty depression screening assessment Liz Norman RNStart: 81-54-1050Rrxemoo of coronary artery bypass grafting History of four vessel coronary artery bypass graftOdessa Cook MEAT APPRENTICE-INTERNET DESIGNER Work Phone: Start: 20-40-9476Fdxsx depression screening assessment Rajni Yuhas DO Work Phone: Start: 69-99-9360Idzczwuhnzqbj metabolic panelJohn L Yuhas DO Work Phone: Start: 93-65-2961Mieun depression screening assessment Rajni Yuhas DO Work Phone: Start: 64-05-4779Elrmt depression screening assessment Rajni Gaytanhas DO Work Phone: Start: 91-66-3202Epzyni-up visitFollow-upMANEL BOUMEGOUASStart: 35-75-9247Etkga depression screening assessmentRajni Steiner DO Work Phone: Start: 72-34-7015Ozfgriprxmizwh aspir&/inj major jt/bursa w/o usJacristina A Aleksandar DO Work Phone: Start: 71-15-1810Fotud shoulder complete minimum 2 viewsEusebia Huertas DO Work Phone: Start: 40-51-9795Dfsogg-up visitFollow-upSHANMISTI Garcia ELSTONStart: 73-79-5181Lbyup depression screening assessmentRajni Steiner DO Work Phone: Start: 94-94-2864Kphrrdeym single/motor vehicle clerk trigger point 1/2 musclesAmy Deel ARRT Work Phone: Start: 67-48-8591Rgatm spine 1 view specify levelEusebia Huertas DO Work Phone: Start: 52-94-6387Jpzwa depression screening assessment Rajni Steiner DO Work Phone: Start: 66-59-0707Rsoes depression screening assessment Rajni Steiner DO Work Phone: Start: 04-15-7539LARM INFLUENZA A/INFLUENZA B/SARS-COV-2 VERMarcos Stephens MEAT APPRENTICE-PAWN BROKER Work Phone: Start: 91-01-7368Xvjcs depression screening assessment Kacey Stephens MEAT APPRENTICE-PAWN BROKER Work Phone: Start: 33-02-9817Tfxjj depression screening assessment Rajni Steiner DO Work Phone: Start: 42-77-1686Zwdxc depression screening assessment Rajni Steiner DO Work Phone: Start: 57-80-1320Akise metabolic panel calcium total Rajni Gimenez MD Work Phone: start: 39-07-9529UTICC OXIMETRY, SPOTRajni Gimenez MD Work Phone: start: 43-40-8782Mnibe metabolic panel calcium total Rajni Gimenez MD Work Phone: start: 89-96-3230Eaamc of lactateMary Lock MD Work Phone: Start: 07-25-2023 End: 14-96-8157Eqecaaz bacterial blood aerobic w/id isolatesMary Lock MD Work Phone: Start: 50-88-7556CSBA/FLU A+B/RSV BY NAAT/MOLECULAR (M4RT COLLECTION TUBE)Mary Lock MD Work Phone: Start: 37-44-5247Eeiok gases any combination ph pco2 po2 co2 qil6RkfkbtMary Lock MD Work Phone: Start: 07-25-2023 End: 21-34-3505KYBMIGKXYAKIwhjxg Vohra MD Work Phone: Start: 31-71-1273Gqtxixgutt exam chest 2 viewsMary Lock MD Work Phone: Start: 64-63-2357CH ED CRITICAL CAREMary Lock MD Work Phone: Start: 81-56-1391Wqcrb metabolic panel calcium total Mary Lock MD Work Phone: Start: 29-72-5764Kwa routine ecg w/least 12 lds trcg only w/o i&Mary Jane Lock MD Work Phone: Start: 89-08-5103Lndlb depression screening assessment Rajni Steiner DO Work Phone: Start: 03-14-5423Vsher depression screening assessment Rajni Steiner DO Work Phone: Start: 77-61-8426G-ray of lumbar spine, six views including bending viewsJEFFERSON Fowler Work Phone: Start: 96-67-7300Eapuoxi of coronary artery bypass graftingHx of CABGGrace Meadows DO Work Phone: Start: 06-87-4053Kykrypmpuwt observation [Identifier] in Cervix by Cyto stainSeloisemisti Meadows DO Work Phone: Start: 48-49-7052Antos depression screening assessment Grace Meadows DO Work Phone: History of coronary artery bypass graftingHx of CABG Myriam Peacock MD Work Phone: History of coronary artery bypass graftingHistory of four vessel coronary artery bypass graftKacey Sims RN Plan of Treatment DateCare ActivityDetailAuthorStart: 37-35-6433Vztmi BMI ScreeningAdult BMI ScreeningProMedica Health SystemStart: 98-12-8764Kcfexew ScreeningTobacco ScreeningProMedica Health SystemStart: 52-21-0212Imwzh BMI ScreeningAdult BMI ScreeningProMedica Health SystemStart: 73-39-3532Wynmhrn ScreeningTobacco ScreeningProMedica Health SystemStart: 85-84-9271Mecgq BMI ScreeningAdult BMI ScreeningProMedica Health SystemStart: 64-68-9907Ffjxity ScreeningTobacco ScreeningProMedica Health SystemStart: 50-75-0117Lkign BMI ScreeningAdult BMI ScreeningProMedica Health SystemStart: 09-97-4400Dwdtcdr ScreeningTobacco ScreeningProMedica Health SystemStart: 43-26-9393Uwgle BMI ScreeningAdult BMI ScreeningProMedica Health SystemStart: 83-32-4204Zjwhnpx ScreeningTobacco ScreeningProMedica Health SystemStart: 42-23-7664Enrva BMI ScreeningAdult BMI ScreeningProMedica Health SystemStart: 13-42-3694Pwycebmlrh ScreeningDepression ScreeningProMedica Health SystemStart: 66-10-4551Bzbbrhf ScreeningTobacco ScreeningProMedica Health SystemStart: 80-78-0888Mbttb BMI ScreeningAdult BMI ScreeningProMedica Health SystemStart: 60-95-5940Lizqplr ScreeningTobacco ScreeningProMedica Health SystemStart: 52-31-7459Oowxb BMI ScreeningAdult BMI ScreeningProMedica Health SystemStart: 50-30-5209Yenvqxints ScreeningDepression ScreeningProMedica Health SystemStart: 42-06-1711Rvbkwow ScreeningTobacco ScreeningProMedica Health SystemStart: 84-53-8355Ldsut BMI ScreeningAdult BMI ScreeningProMedica Health SystemStart: 46-30-4088Owruvpbvmj ScreeningDepression ScreeningProMedica Health SystemStart: 16-01-9203Wedxyet ScreeningTobacco ScreeningProMedica Health SystemStart: 82-73-2465Lsdrt BMI ScreeningAdult BMI ScreeningProMedica Health SystemStart: 71-28-3464Cdgymhcwrq ScreeningDepression ScreeningProMiami Valley Hospitalca Health SystemStart: 70-74-0989Jbljp BMI ScreeningAdult BMI ScreeningProMedica Health SystemStart: 56-19-3118Vooadry ScreeningTobacco ScreeningRockingham Memorial HospitalMedica Health SystemStart: 57-57-3116Sfges BMI ScreeningAdult BMI ScreeningSuburban Community Hospital & Brent[facility] Hospitalca Health SystemStart: 93-74-8286Ifbhciehdh ScreeningDepression ScreeningSuburban Community Hospital & Brentwood Hospitalca Health SystemStart: 44-58-6216Frczwxm ScreeningTobacco ScreeningSuburban Community Hospital & Brentwood Hospitalca Health SystemStart: 90-78-2628Rngvdd Use: Cardiovascular Statin Use: CardiovascularSuburban Community Hospital & Brentwood Hospitalca [facility] SystemStart: 63-71-2804Niordq Use: DiabeticStatin Use: DiabeticChildren's Hospital for Rehabilitation SystemStart: 03-15-2025 End: 38-12-3797Uftljhs encounter symrxodko88/19/2025 1:30 PM EST Office Visit [facility] - [facility] Medicine [address] [place] [address] Rajni Steiner, [address] [place], [place] [facility] - Family MedicineStart: 03-08-2025 End: 67-18-6318Jxsdrwf encounter ptiipiktu25/12/2025 3:15 PM EST Office Visit [facility] [address] [place] [address] Sydnie Guerrero, DO [address] [place] [address] [facility] FNR PULMStart: 48-77-1818Epitydlcriuukg of varicella zoster vaccineZoster (Shingles) Vaccine (1 of 2)[facility] SystemComment on above:Postponed from 2012 (Patient Refused)Start: 19-06-9652Qggzd BMI ScreeningAdult BMI ScreeningChildren's Hospital for Rehabilitation SystemStart: 03-07-2025 End: 65-38-5119Leust metabolic 2000 panel - Serum or PlasmaBasic Metabolic Panel Lab Routine Chronic diastolic heart failure (CMS-HCC) Expected: 03/07/2025 (Ap proximate), Expires: 02/21/2026[facility] Work Phone: Comment on above:Expected: 03/07/2025 (Approximate), Expires: 02/21/2026Start: 31-40-9228Netvyrf ScreeningTobacco ScreeningChildren's Hospital for Rehabilitation SystemStart: 93-32-0373Dwzmq BMI ScreeningAdult BMI ScreeningChildren's Hospital for Rehabilitation SystemStart: 31-22-2182Fdrnymeid for malignant neoplasm of cervixPap SmearChildren's Hospital for Rehabilitation SystemStart: 31-29-3865Furdyvw ScreeningTobacco Screening [facility] Hospitaltart: 02-08-2025 End: 08-32-7024Kkjnimz encounter njkymwxpb18/15/2025 1:30 PM EDT Office Visit [facility] Internal Medicine - Family Medicine [address] [place] [address] Rajni Steiner, [address] [facility] [place], [id number] [facility] Internal Medicine - Family MedicineStart: 02-06-2025 End: 93-64-2970Kldotle encounter ldlxhycmi94/13/2025 3:30 PM EDT Office Visit [facility] - Heart Failure Clinic [address] [place] [address] Risa Summers MD [address] [place] [address] [facility] - Heart Failure ClinicStart: 26-27-0650Vgdbh BMI ScreeningAdult BMI ScreeningProGalion Community Hospital SystemStart: 22-03-3028Uwrujyb ScreeningTobacco ScreeningProGalion Community Hospital SystemStart: 01-04-2025 End: 34-79-0753Semevschq to same day surgery axdbbz4801/04/2025 10:00 AM EDT - 01/04/2025 11:00 AM EDT Surgery [facility] - Endoscopy [address] [place] [address] Rajni Steiner, DO [address] [place] [address] ESOPHAGOGASTRODUODENOSCOPY DIAGNOSTIC [84855(CPT )][facility] - EndoscopyComment on above:ESOPHAGOGASTRODUODENOSCOPY DIAGNOSTIC [37263 (CPT )]Start: 58-66-0350Rfidgmhxkq hospital visit by wqocomedz82/10/2025 10:00 AM EDT Hospital Encounter [facility] - Endoscopy [address] [place] [address] Rajni Steiner, DO [address] [place] [address] [facility] - EndoscopyStart: 01-04-2025 End: 12-12-0870Evnmatnpqppnooambxrdbmwbnq transoral diagnosticFREMONT [facility] Start: 01-03-2025 End: 87-80-4918ghytjiorqp54/09/2025 3:50 PM EDT Support Visit [facility] - Pre Admit [address] [facility] [address] [facility] - Pre AdmitStart: 48-54-7446Zwrss BMI ScreeningAdult BMI ScreeningProGalion Community Hospital SystemStart: 82-07-0685Cuayiczbcy ScreeningDepression ScreeningProGalion Community Hospital SystemStart: 42-13-6565Tuptpnt ScreeningTobacco ScreeningProGalion Community Hospital SystemStart: 12-21-2024 End: 17-00-1977Hkehuqg encounter lluzxuzzp27/27/2025 7:30 AM EDT Appointment [facility] Cardiovascular [address] [place] [address] Odessa Cook, MEAT APPRENTICE-INTERNET DESIGNER [address] [place] [address] [facility] CardiovascularStart: 12-20-2024 End: 90-64-8474Yzbjdoqal to same day surgery oyhszv7012/20/2024 10:00 AM EDT - 12/20/2024 11:00 AM EDT Surgery [facility] - Endoscopy [address] [place] [address] Rajni Steiner, DO [address] [place] [address] ESOPHAGOGASTRODUODENOSCOPY DIAGNOSTIC [94377(CPT )][facility] EndoscopyComment on above:ESOPHAGOGASTRODUODENOSCOPY DIAGNOSTIC [13685 (CPT )]Start: 12-20-2024 End: 25-00-7614Rnjyxgqcdikojnjbmmgruhgnzs transoral diagnostic ESOPHAGOGASTRODUODENOSCOPY DIAGNOSTIC microcytic anemia 12/20/2024 10:00 AM EDT [facility]COPYStart: 33-76-8671Unrxgwhvoe hospital visit by physician 12/20/2024 10:00 AM EDT Hospital Encounter [facility] - Endoscopy [address] [place] [address] Rajni Steiner, DO [address] [place] [address] [facility] - EndoscopyStart: 12-19-2024 End: 32-49-4207lbmevfvoih36/25/2025 2:40 PM EDT Support Visit [facility] - Pre Admit [address] [facility] [place] [address] [facility] - Pre AdmitStart: 11-05-7409Watoo BMI ScreeningAdult BMI ScreeningProMiami Valley Hospitalca Health SystemStart: 94-56-7029Rcuekuy ScreeningTobacco ScreeningMagruder Hospital Health SystemStart: 12-08-2024 End: 08-69-2397vkdnuwxvgg98/14/2025 9:00 AM EDT Lab [facility] - Lab [address] [place] [place] [address] [phone] Health [facility] - LabStart: 07-65-2222Rwnpj BMI ScreeningAdult BMI ScreeningProMiami Valley Hospitalca Health SystemStart: 12-07-2024 End: 96-80-7426Wfpuknh encounter sfwssnyac85/13/2025 2:00 PM EDT [facility] [address] [facility] [place] [address] Rajni Steiner, [address] [facility] [place], [place] [facility] - Family MedicineStart: 15-90-7102Luwwwdu ScreeningTobacco ScreeningChildren's Hospital for Rehabilitation SystemStart: 47-45-1028Rvjrv BMI ScreeningAdult BMI ScreeningSuburban Community Hospital & Brentwood Hospitalca [facility] SystemStart: 12-06-2024 End: 37-15-7366Dmohwhr encounter yskprrxyi12/12/2025 10:30 AM EDT [facility] [address] [place], [place] [address] [address] [phone] Rick Hector [facility] - Total RehabStart: 11-28-2024 End: 65-34-6190Qith complete W/O contrastEcho complete W/O contrast Echocardiography Routine Chronic heart failure with preserved ejection fraction ([facility]) Pulmonary hypertension ([facility]) Nonrheumatic tricuspid valve regurgitation Essential hypertension Atherosclerosis of caddo coronary artery of caddo heart without angina pectoris History of four vessel coronary artery bypass graft NSTEMI (non-ST elevated myocardial infarction) ([facility]) Expected: 11/28/2024, Expires: 11/28/2025[facility] SystemComment on above:Expected: 11/28/2024, Expires: 11/28/2025Start: 11-28-2024 End: 20-95-4428Nfhbeds encounter zyutruhox91/04/2025 2:00 PM EDT Office Visit [facility] - Heart Failure Clinic [address] [place] [address] Odessa Cook, MEAT APPRENTICE-INTERNET DESIGNER [address] [place] [address] [facility] - Heart Failure ClinicStart: 11-07-2024 End: 69-61-5899Gdyoozo encounter chgmeoimc34/14/2025 2:30 PM EDT [facility] [address] [place] [address] Rajni Steiner, [address] [facility] [place] [facility] - Family MedicineStart: 11-07-2024 End: 14-83-1438QI Knee - right 3 ViewsX-ray knee right 3 views Imaging Routine Patellar tendinitis of right knee Expected: 11/07/2024, Expires: 11/07/2025 [facility] Hospitalashley Work Phone: Comment on above:Expected: 11/07/2024, Expires: 11/07/2025Start: 11-02-2024 End: 29-63-5379Gzvqmdq encounter wlbmmjeru32/09/2025 8:30 AM EDT Appointment [facility] - Radiology [address] [place] [address] [phone] Health - RadiologyStart: 11-01-2024 End: 62-47-1004Kegfoye encounter zipajnoth85/08/2025 4:30 PM EDT Appointment [facility] - Total Rehab [address] [place] [address] Cervicogenic headacheProCarraway Methodist Medical Center - Total RehabComment on above:Cervicogenic headacheStart: 85-45-0100Ihspa BMI ScreeningAdult BMI ScreeningChildren's Hospital for Rehabilitation SystemStart: 67-29-0828Knekaysrow ScreeningDepression ScreeningProGalion Community Hospital SystemStart: 89-41-9146Eivbacr ScreeningTobacco ScreeningChildren's Hospital for Rehabilitation SystemStart: 10-27-2024 End: 54-97-1103ZJ Gastrointestinal tract upper Views W air contrast PO and W barium contrast POFluoroscopy upper GI with esophagus Imaging Routine Nausea and vomiting, unspecified vomiting type Expected: 10/27/2024, Expires: 10/27/2025 [facility] SystemComment on above:Expected: 10/27/2024, Expires: 10/27/2025Start: 31-62-2607Pzicy BMI ScreeningAdult BMI ScreeningProGalion Community Hospital SystemStart: 10-38-4972Hbdmggq ScreeningTobacco ScreeningChildren's Hospital for Rehabilitation SystemStart: 10-07-2024 End: 45-19-2404Wybdyfi encounter jsebyrapn68/13/2025 11:30 AM EDT Office Visit [facility] - Family Medicine [address] [place], [place] [address] [address] Rajni Steiner, DO [address] [place] [address] [facility] Internal Medicine - Family MedicineStart: 87-56-3727Lsgfb BMI ScreeningAdult BMI ScreeningProMiami Valley Hospitalca [facility] SystemStart: 89-46-5990Tyyoaqsnvb ScreeningDepression ScreeningProMedica Health SystemStart: 40-34-1408Efxrqka ScreeningTobacco ScreeningProMedica Health SystemStart: 18-09-3001Mzlsq BMI ScreeningAdult BMI ScreeningProMedica Health SystemStart: 28-46-2435Odvoohdapj ScreeningDepression ScreeningProMedica Health SystemStart: 58-83-9983Ivupobm ScreeningTobacco ScreeningProMedica Health SystemStart: 09-21-2024 End: 67-02-3936Uanhmfr encounter mslmfdbys69/28/2025 3:00 PM EDT Office Visit [facility] [address] [place] [address] Sydnie Guerrero, [address] [place] [address] ArrivedNOMS FNR PULMComment on above:ArrivedStart: 09-17-2024 Adult BMI ScreeningAdult BMI ScreeningProMedica Health SystemStart: 09-08-2024 Adult BMI ScreeningAdult BMI ScreeningProMedica Health SystemStart: 09-08-2024 Depression ScreeningDepression ScreeningProMedica Health SystemStart: 09-08-2024 Tobacco ScreeningTobacco ScreeningProMedica Health SystemStart: 01-34-2151Hxlpv BMI ScreeningAdult BMI ScreeningProMedica Health SystemStart: 13-97-3913Ynipwuw ScreeningTobacco ScreeningProMedica Health SystemStart: 45-47-3763Ewomt BMI ScreeningAdult BMI ScreeningProMedica Health SystemStart: 85-60-4944Dorbtlhvyf ScreeningDepression ScreeningProMedica Health SystemStart: 52-91-4386Xebeocg ScreeningTobacco ScreeningProMedica Health SystemStart: 38-34-8924Bksqb BMI ScreeningAdult BMI ScreeningProMedica Health SystemStart: 65-83-6369Ovvsafd ScreeningTobacco ScreeningProMedica Health SystemStart: 46-22-4486Uncxo BMI ScreeningAdult BMI ScreeningProMedica Health SystemStart: 97-79-8768Esolfrv ScreeningTobacco ScreeningProMedica Health SystemStart: 53-88-8780Hllcz BMI ScreeningAdult BMI ScreeningProMedica Health SystemStart: 73-68-5992Zbemiwhdae ScreeningDepression ScreeningProMedica Health SystemStart: 00-62-5693Hykgcfh ScreeningTobacco ScreeningProMedica Health SystemStart: 06-29-2024 End: 39-55-6219Kjhdrva encounter kknogebwf66/05/2025 3:00 PM EST Office Visit [facility] [address] [place] [address] Sydnie Guerrero, DO [address] [place] [address] [facility] FNDasha PULMStart: 42-27-2124Tzlfs BMI ScreeningAdult BMI ScreeningProMedica Health SystemStart: 91-75-6761Rsgasdb ScreeningTobacco ScreeningProMedica Health SystemStart: 06-08-2024 End: 51-42-5925Nuewnax encounter jxlkrztyy92/12/2025 1:00 PM EST Office Visit [facility] - Family Medicine [address] [place] [address] Rajni gonsalez, [address] [facility], [place] [facility] Medicine - Family MedicineStart: 89-69-0107Spevx BMI ScreeningAdult BMI ScreeningProMedica Health SystemStart: 16-67-5789Lhuxvpkiey ScreeningDepression ScreeningProMedica Health SystemStart: 05-51-3546Njfpjvs ScreeningTobacco ScreeningProMedica Health SystemStart: 05-23-8697Odvua BMI ScreeningAdult BMI ScreeningProMedica Health SystemStart: 99-88-1259Tfqaocn ScreeningTobacco ScreeningProMedica Health SystemStart: 03-17-2024 End: 68-87-4791Mzybknz encounter lfedvujgl95/21/2024 1:00 PM EST Consult [facility] [address] [place] [address] Sydnie Guerrero DO [address] [place] [address] ArrivedNOMS PULMComment on above:ArrivedStart: 03-10-2024 End: 74-12-6202Kfxeunu encounter jykjruvek23/14/2024 3:00 PM EST Office Visit [facility] [address] [place] [address] Grace Meadows, DO [address] [address] [facility] Pulmonary/Sleep MedicineStart: 03-07-2024 End: 43-79-9729Blzjstt encounter nuczekpiq82/11/2024 1:00 PM EST Office Visit [facility] - Family Medicine [address] [place] [address] Rajni Steiner, DO [address] [place], [place] [facility] Internal Medicine - Family MedicineStart: 02-19-2024 End: 04-44-2029Zzuvejf encounter /25/2024 10:45 AM EDT Office Visit [facility] [address] [facility] [address] [place] [address] Alex Amos MD [address] [place] [address] Saqib Giles MD [address] [place] [facility] [place] [phone] (Work) [facility] CardiologyStart: 02-09-2024 End: 01-51-8259Aaiidak encounter utvymdrxg93/15/2024 1:30 PM EDT Office Visit [facility] [address] [place] [address] Eusebia Huertas, DO [address] [place] [address] [facility]THOPAEDICSStart: 01-21-2024 End: 32-51-2559Nuspunx encounter dypprgjcn83/26/2024 10:00 AM EDT Office Visit [facility] [address] [place] [address] Grace Meadows, DO [address] [address] [facility] Pulmonary/Sleep MedicineStart: 01-19-2024 End: 99-65-9039Fidcnrg encounter procedureNOMS CI ORTHOPAEDICSStart: 01-14-2024 End: 97-10-1396Qzrmcyt encounter ckwackybk76/19/2024 3:00 PM EDT Office Visit [facility] [address] [place] [address] Grace Meadows, DO [address] [address] [facility] Pulmonary/Sleep MedicineStart: 01-12-2024 End: 83-55-7235Lvabhuo encounter sugtzkrig04/17/2024 10:45 AM EDT Office Visit [facility] [address] [place] [address] Eusebia Huertas, DO [address] [place] [address] [facility]THOPAEDICSStart: 01-04-2024 End: 33-88-0753Rswcglg encounter opbhwvgbw98/09/2024 1:00 PM EDT Office Visit [facility] - Family Medicine [address] [place] [address] Rajni Steiner, DO [address] [facility] [place] [facility] Internal Medicine - Family MedicineStart: 12-29-2023 End: 23-99-7463Irjrrzi encounter cupkwodhh50/03/2024 10:45 AM EDT Office Visit [facility] [address] [facility] [address] [place] [address] Eusebia Huertas, [address] [facility] [address] [place] [address] Compression fracture of T6 vertebra with routine healing, subsequent encounter; Compression fracture of T8 vertebra with routine healing, subsequent encounter; Osteoporotic compression fracture of vertebra with routine healing, subsequent encounterNOMS CI ORTHOPAEDICSComment on above:Compression fracture of T6 vertebra with routine healing, subsequent encounter; Compression fracture of T8 vertebra with routine healing, subsequent encounter; Osteoporotic compression fracture of vertebra with routine healing, subsequent encounterStart: 02-69-7653Hdfdwoarm vaccinationInfluenza VaccineSuburban Community Hospital & Brentwood Hospitalca Health SystemStart: 12-07-2023 End: 89-81-9252Gbdvmjvq Jcfcgah8312/07/2023 8:00 PM EDT Clinical Support [facility] - Sleep Disorders [address] [place] [address] [place] [address] Grace Meadows, DO [address] [address] [facility] - Sleep DisordersStart: 12-03-2023 End: 11-59-4705Qlwljdh encounter yujynzisu97/08/2024 10:00 AM EDT Office Visit [facility] [address] [facility] [place] [address] Grace Meadows, DO [address] [address] [facility] Pul[facility]/Sleep MedicineStart: 11-02-2023 End: 08-60-7551Quovihu encounter ujqynmhva60/08/2024 3:30 PM EDT Office Visit [facility] - Family Medicine [address] [place] [address] Rajni Steiner, DO [address] [place], [place] [facility] MedicineStart: 10-06-2023 End: 99-36-1988Ubnqiit [facility] DEXAStart: 09-30-2023 End: 44-23-4309Gaudhan encounter btthexyjz11/05/2024 1:30 PM EDT Office Visit [facility] - Family Medicine [address] [place] [address] Rajni Steiner, DO [address], [place] [facility] - [facility] MedicineStart: 09-11-2023 End: 51-77-6213Kgqyzsn encounter nxwaijgnm95/17/2024 1:00 PM EDT Appointment [facility] [place] - Mammography [address] [place] [address] [phone] Harris [facility] [place] - MammographyStart: 09-10-2023 End: 12-22-9749Orzquij encounter procedureK[facility] - VascularStart: 09-10-2023 End: 36-07-2350Yueojbn encounter qdlnabhhd78/16/2024 8:15 AM EDT Appointment [facility] - MRI Imaging [address] [place] [phone] Rajni Steiner, DO [address] [place] [address] [facility] - MRI ImagingStart: 09-09-2023 End: 15-74-3514Warzrup encounter lvihjflvv02/15/2024 1:00 PM EDT Office Visit [facility] - Family Medicine [address] [place] [address] Rajni Steiner, DO [address] [facility] [id number] [facility] - Family MedicineStart: 08-11-2023 End: 69-59-7086Bbhqezwq Ilxtgct9508/11/2023 8:00 PM EDT Clinical Support [facility] - Sleep Disorders [address] [place] [address] Grace Meadows, DO [address] [address] [facility] - Sleep DisordersStart: 08-10-2023 End: 13-08-3383Folvtaz encounter rqckmlgpy70/15/2024 1:00 PM EDT [facility] [address] [place] [address] Rajni Steiner, DO [address] [facility] [place], [id number] [facility] - Family MedicineStart: 08-03-2023 End: 89-82-5558Dutwoff encounter gktmoolrh61/08/2024 10:00 AM EDT Office Visit [facility] - Heart Failure Clinic [address] [place] [phone] Cynthia Buchanan, MEAT APPRENTICE-INTERNET DESIGNER [address], [place] [phone] [facility] - Heart Failure ClinicStart: 07-27-2023 End: 71-97-8552Eminxxe encounter cwxzvdwip37/01/2024 8:30 AM EDT Office Visit [facility] Heart Failure Clinic [address] [place] [phone] Cynthia Buchanan, MEAT APPRENTICE-INTERNET DESIGNER [address] [place] [address] [facility] - Heart Failure ClinicStart: 07-01-2023 End: 28-39-7666Diuraco encounter procedureK[facility] - Pulmonary FunctionStart: 06-29-2023 End: 68-90-4514Ztaejmg encounter bazatzjvk10/04/2024 12:00 PM EST Office Visit [facility] - Family Medicine [address] [place] [address] Rajni Steiner, DO [address] [place] [address] [facility] - Family MedicineStart: 06-25-2023 End: 20-76-2418Cavzzoo encounter ylctyiryu15/29/2024 10:00 AM EST Office Visit [facility] Pulmonary/Sleep Medicine [address] [place] [phone] Grace Meadows, DO [address] [address] [facility] Pul[facility]/Sleep MedicineStart: 06-01-2023 End: 55-69-7544Bxuuyrh encounter xgajiycdp26/05/2024 1:30 PM EST Office Visit [facility] - Family Medicine [address] [place] [address] Rajni Steiner, DO [address] [place] [id number] [facility] - Family MedicineStart: 50-52-9132Premjbaxd vaccination Influenza VaccineChildren's Hospital for Rehabilitation SystemStart: 13-18-7675YPT ( or age 60+ yrs) (1 - Risk 60-74 years 1-dose series)RSV ( or age 60+ yrs) (1 - Risk 60-74 years 1-dose series)[facility] SystemStart: 08-06-2021 Depression ScreeningDepression ScreeningChildren's Hospital for Rehabilitation SystemStart: 2012 Administration of varicella zoster vaccineZoster (Shingles) Vaccine (1 of 2) [facility] SystemStart: 83-02-1220Ppvzpomvfnfyrg of varicella zoster vaccineZoster (Shingles) Vaccine (1 of 2)[facility] SystemStart: 71-89-9046YApA,Tdap and Td Vaccines (1 - Tdap)DTaP,Tdap and Td Vaccines (1 - Tdap)[facility] SystemStart: 14-11-8502Ylmfe BMI Follow Up PlanAdult BMI Follow Up PlanChildren's Hospital for Rehabilitation SystemStart: 22-98-7476Fvorpgkz foot examination Diabetic Foot ExamProGalion Community Hospital SystemStart: 49-75-0235Tbamxysj screening Diabetic Ophthalmology ExamNovant Health Charlotte Orthopaedic Hospitaltart: 93-28-8527Ebysgy Use: CardiovascularStatin Use: CardiovascularChildren's Hospital for Rehabilitation SystemStart: 1960 Statin Use: DiabeticStatin Use: DiabeticChildren's Hospital for Rehabilitation SystemStart: 1960 Tobacco CounselingTobacco CounselingOhioHealth Van Wert HospitalBacteria identified in Blood by Aerobe cultureProMiami Valley Hospitalca Work Phone: End: 10-54-3539Gyxsk metabolic 1999 panel - Serum or PlasmaBasic Metabolic Panel Lab Routine Chronic heart failure with preserved ejection fraction (CMS-HCC) 1 Occurrences starting 11/02/2023 until 11/01/2024[facility] Rehabilitation SystemComment on above:1 Occurrences starting 11/02/2023 until 11/01/2024 End: 31-38-0809Pegvv metabolic 2000 panel - Serum or PlasmaBasic Metabolic Panel Lab Routine Chronic heart failure with preserved ejection fraction ([facility]) P ulmonary hypertension ([facility]) Nonrheumatic tricuspid valve regurgitation Essential hypertension Atherosclerosis of caddo coronary artery of caddo heart without angina pectoris History of four vessel coronary artery bypass graft NSTEMI (non-ST elevated myocardial infarction) ([facility]) 1 Occurrences starting 11/28/2024 until 11/28/2025[facility] Work Phone: Comment on above:1 Occurrences starting 11/28/2024 until 11/28/2025 End: 29-25-2768Yjpkh metabolic 2000 panel - Serum or PlasmaBasic Metabolic Panel Lab Routine Chronic heart failure with preserved ejection fraction ([facility]) E ssential hypertension Pulmonary hypertension ([facility]) Nonrheumatic tricuspid valve regurgitation Atherosclerosis of caddo coronary artery of caddo heart without angina pectoris History of four vessel coronary artery bypass graft 1 Occurrences starting 11/30/2024 until 11/30/2025[facility] Work Phone: Comment on above:1 Occurrences starting 11/30/2024 until 11/30/2025 End: 14-38-4010Steqg metabolic 2000 panel - Serum or PlasmaBasic Metabolic Panel Lab Routine Chronic diastolic heart failure ([facility]) Pulmonary hypertension ( [facility]) Nonrheumatic tricuspid valve regurgitation 1 Occurrences starting 02/06/2025 until 02/06/2026[facility] Work Phone: Comment on above:1 Occurrences starting 02/06/2025 until 02/06/2026 End: 74-34-2427JQY W Auto Differential panel - BloodCBC auto differential Lab Routine Chronic heart failure with preserved ejection fraction ([facility]) 1 Occurrences starting 11/02/2023 until 11/01/2024[facility] Work Phone: Comment on above:1 Occurrences starting 11/02/2023 until 11/01/2024 End: 24-12-1422KPA W Auto Differential panel - BloodCBC auto differential Lab Routine Stage 3a chronic kidney disease ([facility]) 1 Occurrences starting 0 07/07/2024 until 07/07/2025[facility] Work Phone: Comment on above:1 Occurrences starting 07/07/2024 until 07/07/2025 End: 02-52-7478Thzonosiiunhu metabolic 2000 panel - Serum or PlasmaComprehensive metabolic panel Lab Routine Stage 3a chronic kidney disease ([facility]) 1 Occurrences starting 07/07/2024 until 07/07/2025ProMiami Valley HospitalUlthera SystemComment on above:1 Occurrences starting 07/07/2024 until 07/07/2025 End: 24-19-4891Eotkyfkcdpeaow vitamin b-12Vitamin B12 Lab Routine B12 deficiency 1 Occurrences starting 11/02/2023 until 11/01/2024[facility] HospitalUlthera SystemComment on above:1 Occurrences starting 11/02/2023 until 11/01/2024 End: 25-53-5080Lwoyunqrwfszlu vitamin b-12Vitamin B12 Lab Routine B12 deficiency 1 Occurrences starting 07/07/2024 until 07/07/2025ProMiami Valley HospitalUlthera SystemComment on above:1 Occurrences starting 07/07/2024 until 07/07/2025 End: 84-27-8473UjdaplpekjereelknashvvesyzHMW GI Routine Microcytic anemia Gastro-esophageal reflux disease without esophagitis 1 Occurrencesstarting 12/15/2024 until 12/15/2025[facility] Work Phone: Comment on above:1 Occurrences starting 12/15/2024 until 12/15/2025Esophagogastroduodenoscopy transoral diagnostic ESOPHAGOGASTRODUODENOSCOPY DIAGNOSTIC Microcytic anemiaFREMONT ENDOSCOPY End: 34-74-5030Rmxqbeeaeu A1c/Hemoglobin.total in BloodHemoglobin A1c Lab Routine IFG (impaired fasting glucose) 1 Occurrences starting 07/07/2024 until 07/07/2025ProMiami Valley HospitalUlthera SystemComment on above:1 Occurrences starting 07/07/2024 until 07/07/2025 End: 59-74-2758Fyvqulsbka A1c/Hemoglobin.total in BloodHemoglobin A1c Lab Routine Type 2 diabetes mellitus with stage 3a chronic kidney disease, without long-term current use of insulin ([facility]) 1 Occurrences starting 10/27/2024 until 10/27/2025[facility] Work Phone: Comment on above:1 Occurrences starting 10/27/2024 until 10/27/2025Hemoglobin A1c/Hemoglobin.total in BloodHemoglobin A1c Lab Routine Type 2 diabetes mellitus with stage 3a chronic kidney disease, without long-term current use of insulin ([facility]) 10/27/2024 4:57 PM [facility] End: 90-54-5550Qccwv 1996 panel - Serum or PlasmaLipid profile Lab Routine 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 ([facility]) 1 Occurrences starting 07/07/2024 until 07/07/2025 [facility] AppwoRx SystemComment on above:1 Occurrences starting 07/07/2024 until 07/07/2025 End: 78-04-1076Detghtfnm [Mass/volume] in Serum or PlasmaMagnesium Lab Routine Chronic heart failure with preserved ejection fraction ([facility]) 1 Occurrences starting 11/02/2023 until 11/01/2024[facility] HospitalUlthera SystemComment on above:1 Occurrences starting 11/02/2023 until 11/01/2024 End: 82-73-0313Rdnvjzrmyutagwz 4 or more parameters with PAP titration Polysomnography 4 or more parameters with PAP titration Sleep Center Routine BONY (obstructive sleepapnea) Hypoxemia associated with sleep 1 Occurrences starting 08/14/2023 until 08/13/2024[facility] Work Phone: Comment on above:1 Occurrences starting 08/14/2023 until 08/13/2024 End: 13-17-2142Caedoyklz function test Spirometry (Flow Volume Loop) pre/post short acting bronchodilator w/ DLCO (diffusion study)Pulmonary function test Spirometry (Flow Volume Loop) pre/post short acting bronchodilator w/ DLCO ( diffusion study) PFT Routine Chronic obstructive pulmonary disease, unspecified COPD type ([facility])1 Occurrences starting 06/25/2023 until 06/24/2024[facility] HospitalGOODWIN SystemComment on above:1 Occurrences starting 06/25/2023 until 06/24/2024 End: 40-39-5530Ssgwv Night Sleep StudySplit Night Sleep Study Sleep Center Routine BONY treated with BiPAP 1 Occurrences starting 06/25/2023 until 06/24/2024[facility] Work Phone: Comment on above:1 Occurrences starting 06/25/2023 until 06/24/2024 Immunizations Immunization DateImmunizationNotesCare BzxwafkwFlvhinqn12-42-2569vlqsdwiqei skin test; purified protein derivative solution, intradermalLeanne Cesar DO Work Phone: [facility] SystemBkramakrbu28-75-0290rygordvxth skin test; unspecified formulationKacey Sims [facility] HospitalAxpmgy94-85-5148nvsjcbkfoc skin test; purified protein derivative solution, intradermalLeanne Cesar DO Work Phone: noSt. Joseph Medical CenterUwelccqkui45-36-8861zsoxxlrtxw skin test; unspecified formulationKacey Sims [facility] Payers DatePayer CategoryPayerPolicy [id number] 2025Unknown 2024Medicare (Managed Care)[id number] 2024Medicare [id number] [id number] 2024Private Health Hbpkmmvdh55-65-8064Hlhc-fdb [id number] 2022Medicare [id number] Health Insurance [id number] [id number] [id number] [id number] [id number] 2.16.840.1.661387.3.579.2.201602-45-7734Chqoopa5274315 2.16.840.1.790160.3.579.2.482231-82-3716Hjeoqtu3615373 2.16.840.1.057846.3.579.2.127452-70-0841Zvzpihl9459054 2.16.840.1.309561.3.579.2.576729-58-7580Dfdothn4914343 2.16.840.1.396582.3.579.2.535732-96-6417Dittqtz2515050 2.16.840.1.255469.3.579.2.738402-49-8907Zawlziq2829254 2.16.840.1.216102.3.579.2.873704-83-6613Lcmhnfx5987751 2.16.840.1.893066.3.579.2.725399-78-4262Pocsudh7342490 2.16.840.1.383979.3.579.2.075830-02-6967Wmfgjyz4778498 2.16.840.1.178432.3.579.2.034809-34-8875Tuiltca4795582 2.16.840.1.438678.3.579.2.910781-57-6932Kfjllcq3077992 2.16.840.1.841885.3.579.2.885133-63-9959Ajnqzer4708833 2.16.840.1.851513.3.579.2.591810-26-1865Spbatdf9168254 2.16.840.1.347156.3.579.2.934560-33-2239Fbgzutz3579245 2.16.840.1.121748.3.579.2.478065-62-1927Zqhtlny021321745 2.16.840.1.662826.3.579.2.767255-75-8939Oqunvcw42768858 2.16.840.1.750881.3.579.2.567325-93-4713Xhmgowu37865730 2.16.840.1.500452.3.579.2.430321-88-4032Nxprepn75288703 2.16.840.1.593656.3.579.2.920108-55-1589Pmnrmkq21557557 2.16.840.1.315049.3.579.2.054074-47-9879Icozjry7245444 2.16.840.1.558648.3.579.2.731999-48-3577Khrincd5846618 2.16840.1.395020.3.579.2.304882-13-1320Cuyhitg5640353 2.16840.1.570504.3.579.2.337561-64-8681Xfzjeiy6833003 2.16.840.1.619915.3.579.2.183391-83-8694Gmcfmlw1035436 2.16.840.1.495128.3.579.2.508957-71-1352Boiazlg3833018 2.16.840.1.053037.3.579.2.340390-84-8990Guvpmwo5227663 2.16840.1.397120.3.579.2.323612-64-7319Qvuqqov1772473 2.16.840.1.675081.3.579.2.407573-29-4391Ujdeevc6320212 2.16840.1.298363.3.579.2.142852-86-9505Kmzxdac7499939 2.16.840.1.600673.3.579.2.525843-20-6575Ljxxxml969881345 2.16840.1.421117.3.579.2.599951-03-7979Ubtxlju753179507 2.16.840.1.380683.3.579.2.493886-71-3419Dqaqsrb845956982 2.16.840.1.252883.3.579.2.624698-42-2495Iwqosdg871785069 2.16.840.1.646505.3.579.2.360668-62-9223Ygclcnv581922515 2.16.840.1.246021.3.579.2.501028-69-1338Rvdtqyf22059763 2.16.840.1.690291.3.579.2.374607-37-2426Jxpfhcb65438383 2.840.1.930073.3.579.2.325564-86-3682Uozbkjz778570087 2.16840.1.230125.3.579.2.203915-43-0011Exzsalv79803188 2.16.840.1.174876.3.579.2.339157-39-1378Cfgbojv232924422 2.16.840.1.384656.3.579.2.83902-32-2914Bynzqjg736810098 2.16840.1.410145.3.579.2.03489-99-8068Hroqtqp875475167 2.16.840.1.023627.3.579.2.66985-67-1324Eategkz338115087 2.16.840.1.601140.3.579.2.29004-99-4314Ntykzpx030595421 2.16.840.1.187861.3.579.2.15767-55-5582Nwgfznc218656714 2.16840.1.263021.3.579.2.05935-94-7384Yqfzidq584116978 2.16840.1.068905.3.579.2.068013-89-1684Xuvfsoo223628222 2.840.1.618666.3.579.2.884711-12-0754Jgupzth066029445 2.840.1.143166.3.579.2.224762-81-0193Bctmwcx961750913 2.840.1.936446.3.579.2.611138-30-9609Uhybwfw831676305 2.0.1.880095.3.579.2.257386-68-7357Ibjupqh562565878 2.840.1.637681.3.579.2.781065-13-8881Mwgmjit329021937 2.0.1.609944.3.579.2.603131-49-0227Lxzpkgk982330804 2.840.1.808351.3.579.2.032500-01-9778Jibgmyg310632549 2..1.618164.3.579.2.064443-55-3736Hjngznx627108187 2..1.057125.3.579.2.105181-66-1006Yrrovyi042570942 2..1.796850.3.579.2.911511-31-2740Rlaiptk347344432 2.0.1.536807.3.579.2.812448-51-3306Uukgayn101456189 2.840.1.319803.3.579.2.485401-22-1058Obqddwz256765850 2.840.1.108056.3.579.2.836146-34-5223Qqlhqqy600143575 2.840.1.762288.3.579.2.575418-80-7368Mzqhlqm278212379 2.16.840.1.515883.3.579.2.241218-25-6993Hvokkjj656486810 2.16.840.1.064136.3.579.2.186234-89-4699Rgmdvhe468265825 2.16.840.1.296400.3.579.2.452350-81-7981Xgvudwd917038768 2.16.840.1.229674.3.579.2.065960-86-3839Ahyetag054946536 2.16.840.1.699561.3.579.2.1286MedicaidMedicaid Out of [id number] 2.16.840.1.630942.19 [id number] 2.16.840.1.093227.3.579.2.046Wqijoaw05651086 2.16840.1.130972.3.579.2.531 Social History DateTypeDetailFacilityStart: 09-25-1981 End: 90-49-4675Eaoymoj smoking status NHISSmoker (finding)[facility] Troytart: 45-78-7182Ojs Ass[facility] At [facility] Hospitaltart: 07-25-2023 End: 50-66-7986Tpp [facility]igned At [facility]art: 09-24-2023 End: 94-22-7202Hcmkvqp smoking status NHISEx-smokerNovant Health Charlotte Orthopaedic Hospitaltart: 09-25-1979 End: 72-59-9143Mfzmezr of tobacco useCigarette SmokerChildren's Hospital for Rehabilitation System Start: 01-22-2024 End: 42-03-0364Iqvrazo use and exposureFormer smokeless tobacco userNovant Health Charlotte Orthopaedic Hospitaltart: 01-22-2024 End: 87-16-9550Vykhnntjv beverage intakeEx-drinker (finding)[facility] SystemStart: 07-25-2023 End: 20-98-2337Uqgoqnq of Social functionChildren's Hospital for Rehabilitation SystemStart: 29-49-5142Llz assigned at birthNot on [facility]Start: 09-25-1981 End: 12-29-7636Rxasuxs smoking status NHISSmokes tobacco dailyChildren's Hospital for Rehabilitation SystemStart: 08-11-2023 End: 63-56-5173Xuhhysb use and exposureSmokeless tobacco non-userChildren's Hospital for Rehabilitation SystemHas the electric, gas, oil, or water company threatened to shut off services in your home in past 12MoNTwin City HospitalAre you now , , , , never or living with a partner? [facility] HospitalHow often to you have a drink containing alcohol?Never [facility] Orthopaedic Hospitaltart: 66-46-3268Ywo many standard drinks containing alcohol do you have on a typical day?Patient does not drinkChildren's Hospital for Rehabilitation SystemHow hard is it for you to pay for the very basics like food, housing, medical care, and heatingSomewhat hardProMadison HealthDo you feel stress - tense, restless, nervous, or anxious, or unable to sleep at night because your mind is troubled all the time - these days [OSQ]Only a littleNovant Health Charlotte Orthopaedic Hospitaltart: 80-88-5013Kfjtfzj Comment5-6 cigerettes a dayChildren's Hospital for Rehabilitation SystemStart: 45-65-0719Xntcony Commentlast use 15 years agoChildren's Hospital for Rehabilitation SystemStart: 66-92-0690SzfPasvxe (finding)[facility] SystemStart: 48-23-6900Obgqqg identityIdentifies as female gender (finding)[facility] SystemStart: 55-04-8688Ugbhlb orientationHeterosexual (finding)[facility] HospitalHistory of tobacco useChews TobaccoChildren's Hospital for Rehabilitation SystemStart: 04-29-2023 End: 67-03-9135Fbjbiax intakeCurrent non-drinker of alcohol (finding)[facility] SystemHow hard is it for you to pay for the very basics like food, housing, medical care, and heatingNot very hardOhioHealth Van Wert Hospital Medical Equipment Procedure CodeEquipment CodeEquipment Original TextEquipment IdentifierDatesSj Monreal 2.75x28 Rx - [id number], [id number] FDAStart: 38-89-9999FkhSj Monreal 2.75x8 Rx - [id number], [id number] FDAStart: 01-09-2020 Goals DatePatient GoalDesired Activity/StatePersonal health goalComment on above: Evaluation of progress towards goal: under assessmentPersonal health goalComment on above: Evaluation of progress towards goal: feeling better, monitor for home C9Lasftyuf health goalComment on above: Evaluation of progress towards goal: Pt's goal is to go to SNF at discharge for short term rehab. -DEENA LOREDO 04/25/23 3:55 PM Personal health goalComment on above: Evaluation of progress towards goal: feeling betterPersonal health goalPersonal health goal Functional Status DateAssessmentResultFacilityOhioHealth Van Wert Hospital Clinical Notes 12-11-2022 to 02-24-2025 Note Date & WercZhqfXfdmuoyv69-31-7620 Miscellaneous Notes* Telephone Encounter - Dejah Barger RN - 02/24/2025 1:00 AM EDT Please sign and route if you agree. Thank you VENKATA 09/01/24 ABN CMP 02/22/25 - h/o CKD stage 3 documented in this encounterOhioHealth Van Wert Hospital10-31-2025 Telephone encounter Note* Telephone Encounter - Dejah Barger RN - 02/24/2025 1:00 AM EDT Please sign and route if you agree. Thank you VENKATA 09/01/24 ABN CMP 02/22/25 - h/o CKD stage 3 [facility]10-15-2025 Telephone encounter Note* Telephone Encounter - Magali Kelly - 02/08/2025 11:19 AM EDT Hi, this is to be cool calling for Dr Cruz. I really need to move my appointment up as soon as possible. My phone number [phone]. My date is 124 3. Thank you. Patient would like to move appointment up attempted to return call but was unable to reach patient.Correction, patient returned call,, Pt is willing to travel to [place], She states that BiPap is not working correctly . [employer] is the company she uses for her bi pap, and was told nothing wrong, that pt must be using the mask wrong. She would like to move her appt up. [facility] SystemCieqkuisao56-73-2500 Miscellaneous Notes* Telephone Encounter - Magali Kelly - 02/08/2025 11:19 AM EDT Hi, this is to be cool calling for Dr Cruz. I really need to move my appointment up as soon as possible. My phone number [phone]. My date is 124 3. Thank you. Patient would like to move appointment up attempted to return call but was unable to reach patient.Correction, patient returned call,, Pt is willing to travel to [place], She states that BiPap is not working correctly . [employer] is the company she uses for her bi pap, and was told nothing wrong, that pt must be using the mask wrong. She would like to move her appt up. documented in this encounterSaint John's Health SystemZqqljtwbgr66-33-7726 History of Present illness Narrative* Risa Summers MD - 02/06/2025 3:30 PM EDT Images from the original note were not included. [facility] Patient: Monet Recinos Date of : 1960 Age: 64 y.o. Date of Encounter: 02/06/2025 REASON FOR VISIT: Chronic heart failure. Dear Rajni Steiner Jr, DO We [facility] the [facility] Ms. Recinos is [...] enlargement, trace AI, trace to mild MR, vbkr-ui-indamlrv TR,RVSP 44 mmHg PFT 07/01/2023: FEV 1 [...] mouth in the morning. 90 tablet 3 flqhwvwvdt-xxiqosze-hoeubvincn (BREZTRI AEROSPHERE) 160-9-4.8 mcg/actuation HFA aerosol inhaler [...] 1 tablet before bedtime. 60 tablet 2 fruhpw-dmmzguccn-eez,al-simeth (FIRST-MOUTHWASH BLM) [id number] mg/30mL mouthwash Take 5 mL by mouth [...] 3 mL 3 mL intravenous PRN Rajni Steiner, ALLERGIES Allergies Allergen Reactions Penicillins Anaphylaxis [...] failure/COPD, on oxygen; follows with pulmonology at [facility] History of PE Iron-deficiency anemia, underwent [...] ordination of care. 02/06/2025 Risa Summers M.D., [facility], [facility] [address] [place] [address]. [facility] [address] [place] [address] Fax This note was completed using a voice senior advisory system. Every effort was made to ensure accuracy. However, inadvertent computerized senior advisory errors may be present. * Jazmín Acevedo RN - 02/06/2025 12:00 PM EDT Instructed patient on daily weights, fluid restriction, and low sodium diet. Advised of s/s requiring ER treatment or to call the office. Heart failure education provided: Yes. Patient verbalized understanding. documented in this encounterOhioHealth Van Wert Hospital10-13-2025 Instructions* Patient Instructions* Risa Summers MD - [...] by calling the Heart Failure Clinic at [phone]. Please call 911 for emergencies. documented in this encounterOhioHealth Van Wert Hospital10-13-2025 Miscellaneous Notes* Telephone Encounter - Tosin Reyes CMA - 02/06/2025 9:45 AM EDT Franci from [facility] pain management called and stated that patient voiced concern of that she wanted to restart the gabapentin. Doctor was wondering why it was discontinued? * Telephone Encounter - Rajni Steiner DO - 02/06/2025 9:45 AM EDT Message noted. Side effects. We replaced it with pregabalin. I do not know who Franci is, but she should know these things. And if she does not, she should not be asking the questions. * Telephone Encounter - Tosin Reyes CMA - 02/06/2025 9:45 AM EDT Notified Franci documented in this encounterOhioHealth Van Wert Hospital10-13-2025 Telephone encounter Note* Telephone Encounter - Tosin Reyes CMA - 02/06/2025 9:45 AM EDT Franci from [facility] pain management called and stated that patient voiced concern of that she wanted to restart the gabapentin. Doctor was wondering why it was discontinued? [facility]10-13-[facility] Telephone encounter Note* Telephone Encounter - Rajni Steiner DO - 02/06/2025 9:45 AM EDT Message noted. Side effects. We replaced it with pregabalin. I do not know who Franci is, but she should know these things. And if she does not, she should not be asking the questions. [facility]10-13-2025 Telephone encounter Note* Telephone Encounter - Tosin Reyes CMA - 02/06/2025 9:45 AM EDT Notified Franci [facility]10-10-2025 Miscellaneous Notes* Telephone Encounter - Antoinette Sanchez CNA - 02/03/2025 1:55 PM EDT LEFT VOICEMAIL REMINDER ABOUT APPOINTMENT ON THURSDAY 3:30. documented in this encounterOhioHealth Van Wert Hospital10-10-2025 Telephone encounter Note* Telephone Encounter - Antoinette Sanchez CNA - 02/03/2025 1:55 PM EDT LEFT VOICEMAIL REMINDER ABOUT APPOINTMENT ON THURSDAY 3:30. [facility]10-01-[facility] Telephone encounter Note* Telephone Encounter - Fabricio Lange - 01/25/2025 3:36 PM EDT Friend called- Norma has gone without Bi-pap x3 days - she said [employer] [facility] needs order for Bi-pap w settingsas well as - Reg O2 concentrator, and personal concentrator To [facility] If already sent pls disregard - ty [facility] [id number] Miscellaneous Notes* Telephone Encounter - Fabricio Lange - 01/25/2025 3:36 PM EDT Friend called- Norma has gone without Bi-pap x3 days - she said [facility] [employer] [facility] needs order for Bi-pap w settingsas well as - Reg O2 concentrator, and personal concentrator To [facility] If already sent pls disregard - ty documented in this encounterSaint John's Health [id number] Miscellaneous Notes* Perioperative Nursing Note - Patricia Huertas RN - 01/03/2025 3:50 PM EDT Preoperative Education Checklist- General Surgery date: 01/04/25 Surgery time: 1000 Arrival time: 0900 1. Bring a photo ID and your insurance card with you the day of surgery. You will check in at the main lobby of the [facility]- registration desk is straight ahead as soon as you walk in. Tell them you are here for surgery. 2. If you have a Living Will/Durable Power of Document Control Supervisor for Health Care that is not on [...] after you have bathed. 5. NO nail sri lankan/acrylic on at least one finger. If you are having a hand, wrist or foot surgery then all nail sri lankan and artificial/acrylic nails must be removed from [...] please call the Preadmission Testing office at [phone], Mon.-Fri. 7 a.m.-3 p.m. Leave a voicemail [...] Stop taking 0 days prior to procedure bmmnjwqhik-yeamtzmt-qkwqtaydvf (BREZTRI AEROSPHERE) 160-9-4.8 mcg/actuation HFA aerosol inhaler [...] days prior to procedure documented in this encounterOhioHealth Van Wert Hospital09-09-2025 Nurse Note* Perioperative Nursing Note - Patricia Huertas RN - 01/03/2025 3:50 PM EDT Preoperative Education Checklist- General Surgery date: 01/04/25 Surgery time: 1000 Arrival time: 0900 1. Bring a photo ID and your insurance card with you the day of surgery. You will check in at the main lobby of the [facility]- registration desk is straight ahead as soon as you walk in. Tell them you are here for surgery. 2. If you have a Living Will/Durable Power of Document Control Supervisor for Health Care that is not on [...] after you have bathed. 5. NO nail sri lankan/acrylic on at least one finger. If you are having a hand, wrist or foot surgery then all nail sri lankan and artificial/acrylic nails must be removed from [...] please call the Preadmission Testing office at [phone], Mon.-Fri. 7 a.m.-3 p.m. Leave a voicemail [...] Stop taking 0 days prior to procedure jxckzejrpm-esqmejxc-whrstqwaue (BREZTRI AEROSPHERE) 160-9-4.8 mcg/actuation HFA aerosol inhaler [...] Stop taking 0 days prior to procedure [facility]09-09-2025 Telephone encounter Note* Telephone Encounter - Magali Kelyl - 01/03/2025 9:36 AM EDT Pt gets bi-pap machine from [employer] Pt was told that she due for a renewal order for her Bipap, also her condenser Phone number is for [employer] [facility] [id number] Miscellaneous Notes* Telephone Encounter - Magali Kelly - 01/03/2025 9:36 AM EDT Pt gets bi-pap machine from [employer] Pt was told that she due for a renewal order for her Bipap, also her condenser Phone number is for [employer] documented in this encounterSaint John's Health [id number] Miscellaneous Notes* Perioperative Nursing Note - Patricia Huertas RN - 12/19/2024 2:40 PM EDT Preoperative Education Checklist- General Surgery date: 12/20/24 Surgery time: 1000 Arrival time: 0900 1. Bring a photo ID and your insurance card with you the day of surgery. You will check in at the main lobby of the [facility]- registration desk is straight ahead as soon as you walk in. Tell them you are here for surgery. 2. If you have a Living Will/Durable Power of Document Control Supervisor for Health Care that is not on [...] after you have bathed. 5. NO nail sri lankan/acrylic on at least one finger. If you are having a hand, wrist or foot surgery then all nail sri lankan and artificial/acrylic nails must be removed from [...] please call the Preadmission Testing office at [phone], Mon.-Fri. 7 a.m.-3 p.m. Leave a voicemail [...] Stop taking 0 days prior to procedure kvtcqxcdvg-yqsarejm-uatkbjfvqa (BREZTRI AEROSPHERE) 160-9-4.8 mcg/actuation HFA aerosol inhaler [...] days prior to procedure documented in this encounterOhioHealth Van Wert Hospital08-25-2025 Nurse Note* Perioperative Nursing Note - Patricia Huertas RN - 12/19/2024 2:40 PM EDT Preoperative Education Checklist- General Surgery date: 12/20/24 Surgery time: 1000 Arrival time: 0900 1. Bring a photo ID and your insurance card with you the day of surgery. You will check in at the main lobby of the [facility]- registration desk is straight ahead as soon as you walk in. Tell them you are here for surgery. 2. If you have a Living Will/Durable Power of Document Control Supervisor for Health Care that is not on [...] after you have bathed. 5. NO nail sri lankan/acrylic on at least one finger. If you are having a hand, wrist or foot surgery then all nail sri lankan and artificial/acrylic nails must be removed from [...] please call the Preadmission Testing office at [phone], Mon.-Fri. 7 a.m.-3 p.m. Leave a voicemail [...] Stop taking 0 days prior to procedure kkmxfydcxs-yruatvwp-tmdbzfeppx (BREZTRI AEROSPHERE) 160-9-4.8 mcg/actuation HFA aerosol inhaler [...] Stop taking 0 days prior to procedure [facility]08-21-[facility]25 History of Present illness Narrative* Rajni Steiner, DO - 12/15/2024 12:30 PM EDT Subjective [...] Exam Vitals reviewed. Exam conducted with a civil clerk present (Friend/POA). Constitutional: General: She is not [...] EGD; Future Stage 3a chronic kidney disease ([facility]) -patient now back on torsemide 20 mg [...] -further recommendations following testing documented in this encounterOhioHealth Van Wert Hospital08-14-2025 Miscellaneous Notes* Telephone Encounter - Liz Norman [...] chronic respiratory failure with hypoxia and hypercapnia ([facility]) Active Problems: Bipolar 2 disorder, major depressive episode ([facility]) Stage 3a chronic kidney disease ([facility]) Pulmonary hypertension ([facility]) Discharge Specialty: Other *Name of Discharging Facility: [facility] Date of Facility Discharge: 12/04/24-12/06/2024 Date of Interactive Contact and Name of Profiling Machine Set Up Operator Tool: 12/08/24 0956 Unable to reach patient. M [...] *Follow Up Appointments with Providers: Primary: Rajni Steiner Jr, DO 12/15/24 Specialty: Specialty: Specialty: [...] Patient: NA * Telephone Encounter - Rajni Steiner DO - 12/08/2024 7:48 AM EDT Message noted. documented in this encounterOhioHealth Van Wert Hospital08-14-2025 Telephone encounter Note* Telephone Encounter - Liz [...] Discharge Specialty: Other *Name of Discharging Facility: [facility] Date of Facility Discharge: 12/04/24-12/06/2024 Date of Interactive Contact and Name of Profiling Machine Set Up Operator Tool: 12/08/24 0956 Unable to reach patient. LVM [...] *Follow Up Appointments with Providers: Primary: Rajni Steiner Jr, DO 12/15/24 Specialty: Specialty: Specialty: [...] Other Services Utilized/Needed by the Patient: NA [facility]08-14-2025 Telephone encounter Note* Telephone Encounter - Rajni Steiner DO - 12/08/2024 7:48 AM EDT Message noted. [facility]08-06-2025 Miscellaneous Notes* Telephone Encounter - Fareed Norton RN - 11/30/2024 8:25 AM EDT ----- Message from PRAKASH Espinosa sent at 11/30/2024 11:52 AM EDT ----- Have her repeat labs again next week ----- Message ----- From: Kacey Sims RN Sent: 11/30/2024 8:28 AM EDT To: PRAKASH Linares Seen Thursday in [facility], restarted torsemide and you wanted labs in 1 week. She completed thenext day. ----- Message ----- From: Lab, Background User Sent: 11/29/2024 7:25 PM EDT To: [facility] Clinical Staff documented in this encounterOhioHealth Van Wert Hospital08-06-2025 Telephone encounter Note* Telephone Encounter - Fareed Norton RN - 11/30/2024 8:25 AM EDT ----- Message from PRAKASH Espinosa sent at 11/30/2024 11:52 AM EDT ----- Have her repeat labs again next week ----- Message ----- From: Kacey Sims RN Sent: 11/30/2024 8:28 AM EDT To: PRAKASH Linares Seen Thursday in [facility], restarted torsemide and you wanted labs in 1 week. She completed thenext day. ----- Message ----- From: Lab, Background User Sent: 11/29/2024 7:25 PM EDT To: [facility] Clinical Staff [facility]08-04-20[facility] History of Present illness Narrative* PRAKASH Linares - 11/28/2024 2:00 PM EDT Images from the original note were not included. [facility] Patient: Monet Recinos Date of : 1960 Age: 64 y.o. Date of Encounter: 11/28/2024 REASON FOR VISIT: Chronic heart failure. Dear Rajni Steiner Jr, DO & Rajni Steiner DO We had the pleasure of seeing your patient, Monet Recinos, in the [facility] Failure [facility] on 11/28/2024. Ms. [...] mouth in the morning. 90 tablet 3 hzbeniehem-demeboxb-knezliqquk (BREZTRI AEROSPHERE) 160-9-4.8 mcg/actuation HFA aerosol inhaler [...] 42 mm per mercury 11/15 TTE 3. [place] coronary ASCVD status post CABG x4 08/15 [...] heart rates therefore will start her on Qkrlrv02 mg at nighttime Get blood work in [...] Odessa Cook CNP Advanced Heart [facility] Services [facility] This note was completed using a voice senior advisory system. Every effort was made to ensure accuracy. However, inadvertent computerized senior advisory errors may be present. PRAKASH Linares 11/28/24 1444 * Jazmín Acevedo RN - 11/28/2024 2:00 PM EDT Instructed patient on daily weights, fluid restriction, and low sodium diet. Advised of s/s requiring ER treatment or to call the office. Heart failure education provided: No. Patient verbalized understanding. Pt scheduled for echo while in office. Instructions reviewed with pt. documented in this encounterOhioHealth Van Wert Hospital08-04-2025 Instructions* Patient Instructions* PRAKASH Linares - 11/28/2024 [...] by calling the Heart Failure Clinic at [phone]. Please call 911 for emergencies. documented in this encounterOhioHealth Van Wert Hospital07-14-2025 History of Present illness Narrative* Rajni Steiner, - 11/07/2024 2:30 PM EDT IM PROGRESS [...] Exam Vitals reviewed. Exam conducted with a civil clerk present (Friend/POA). Constitutional: General: She is not [...] in the morning., Disp: 90tablet, Rfl: 3 rlkllltjec-javssxxg-tukqpvgzgx (BREZTRI AEROSPHERE) 160-9-4.8 mcg/actuation HFA aerosol inhaler, [...] Final Other Testing No results found. Rajni Steiner DO., [facility] Physicians Office: [phone] documented in this encounterOhioHealth Van Wert Hospital07-14-2025 Evaluation note* Diagnosis Hiatal hernia with GERD- Primary Stage 3a chronic kidney disease ([facility] Patellar tendinitis of right knee Gastro-esophageal reflux disease without esophagitis Venous insufficiency of both lower extremities documented in this encounter [facility]07-[facility]-2025 NoteFL UGI WITH ESOPHAGUS HISTORY: Nausea [...] by Kai Finn MD on 11/02/2024 10:14 [facility] 10-27-2024 History of Present illness Narrative* Rajni Steiner DO - 10/27/2024 4:15 PM EDT IM PROGRESS NOTE Patient - Monet Recinos Age - 64 y.o. - 1960 ASSESSMENT & PLAN 1. Type 2 diabetes mellitus with stage 3a chronic kidney disease, without long- term current use of insulin ([facility]) (Primary) - last A1c 6.5% -goals of [...] Chronic heart failure with preserved ejection fraction ([facility]) - GDMT: Aldactone, Jardiance, furosemide - will continue to wean off of propanolol over the next 2 weeks - at that time we can decide on replacement beta-georgi - propranoloL (INDERAL) 40 mg tablet; Take 1 tablet (40 mg total) by mouth in the morning. 4. Stage 3a chronic kidney disease ([facility]) - GFR ranges 45-54 over the past [...] daily. Unless she takes a dose of [place] along with the pantoprazole, she will get [...] Exam Vitals reviewed. Exam conducted with a civil clerk present (Friend/POA). Constitutional: General: She is not [...] in the morning., Disp: 90tablet, Rfl: 3 ckloshzary-mrzdjnab-zhfjgmypwv (BREZTRI AEROSPHERE) 160-9-4.8 mcg/actuation HFA aerosol inhaler, [...] Final Other Testing No results found. Rajni Steiner DO., [facility] Physicians Office: [phone] documented in this encounterOhioHealth Van Wert Hospital07-03-2025 Evaluation note* Diagnosis Type 2 diabetes mellitus with stage 3a chronic kidney disease, without long-term current use of insulin ([facility])- Primary Venous insufficiency of both lower extremities Chronic heart failure with preserved ejection fraction ([facility]) Stage 3a chronic kidney disease ([facility]) Nausea and vomiting, unspecified vomiting type Arthritis of left sacroiliac joint Cervicogenic headache Headache documented in this encounter [facility]06-13-[facility] History of Present illness Narrative* Rajni Cardoso Obdulia, DO - 10/07/2024 11:30 AM EDT IM PROGRESS NOTE Patient - Monet Recinos Age - 64 [facility] 1960 [id number] ASSESSMENT & PLAN 1. Cervicogenic headache (Primary) [...] Chronic heart failure with preserved ejection fraction ([facility]) -GDMT: Jardiance, propanolol, spironolactone -may need further [...] Exam Vitals reviewed. Exam conducted with a civil clerk present (Friend/POA). Constitutional: General: She is not [...] in the morning., Disp: 90tablet, Rfl: 3 wtqyjfgfha-nncnhhkp-wvrjasjgii (BREZTRI AEROSPHERE) 160-9-4.8 mcg/actuation HFA aerosol inhaler, [...] Final Other Testing No results found. Rajni Steiner DO., [facility] Physicians Office: [phone] documented in this encounterRockingham Memorial HospitalGOODWIN [id number] History of Present illness Narrative* Sydnie Guerrero [...] needed for wheezing, Disp:18 g, Rfl: 5 Albmmey-Gqeumcwkfyx-Lknccfggvu (Breztri Aerosphere) 160-9-4.8 MCG/ACT aerosol, Inhale 2 [...] Chronic obstructive pulmonary disease, unspecified COPD type ([facility]) - albuterol HFA 90 mcg/act inhaler; Inhale 2 puffs every 4 (four) hours if needed for wheezing - Ozihbfr-Dbcninaeqvb-Xnadtqddtc (Breztri Aerosphere) 160-9-4.8 MCG/ACT aerosol; Inhale 2 puffs in the morning and 2 puffs before bedtime. Chronic respiratory failure with hypoxia and hypercapnia ([facility]) BONY (obstructive sleep apnea) COPD -- at [...] COPD. Sydnie Guerrero DO documented in this encounterSaint John's Health [id number] History of Present illness Narrative* Myriam Peacock MD - 09/01/2024 11:15 AM EDT Monetnakia Recinos Date of visit: 09/01/2024 Date of : 1960 Age: 64 y.o. Patient Active Problem List Diagnosis NSTEMI (non-ST elevated myocardial infarction) ([facility]) Obesity (BMI 30-39.9) 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 Hyperglycemia Cigarette nicotine dependence in remission Depression Liver disease Visual impairment BONY treated with BiPAP Chronic heart failure with preserved ejection fraction ([facility]) Essential hypertension Hx of hyperlipidemia Former smoker Agoraphobia Anxiety Chipped tooth GERD (gastroesophageal reflux disease) Low back pain Osteoarthritis PTSD (post-traumatic stress disorder) Bipolar 2 disorder, major depressive episode ([facility]) Cannabis use disorder, mild, abuse Major depressive disorder Panic disorder Weakness BMI 40.0-44.9, adult ([facility]) Chronic respiratory failure with hypoxia and hypercapnia ([facility]) Closed wedge compression fracture of T6 vertebra with routine healing Arthritis of left sacroiliac joint Chronic obstructive pulmonary disease, unspecified COPD type ([facility]) Stage 3a chronic kidney disease ([facility]) Allergies Allergen Reactions Penicillins Anaphylaxis Other Reaction(s): [...] mouth in the morning. 90 tablet 3 qgkumzfmcs-jhfznuag-sckkrqzfvl (BREZTRI AEROSPHERE) 160-9-4.8 mcg/actuation HFA aerosol inhaler [...] longer uses a BIPAP 01/28/23 Bipolar disorder ([facility] Breast injury CHF (congestive heart failure) ([facility]) Chipped tooth Chronic kidney disease COPD (chronic obstructive pulmonary disease) ([facility]) Coronary artery disease Dementia ([facility]) Depression Diarrhea frequent bouts /involuntary Dizziness Fracture, vertebral, lumbar closed ([facility]) GERD (gastroesophageal reflux disease) Headache History of coronary artery bypass graft 08/14/2020 Liver disease Low back pain Lump or mass in breast Memory loss Myocardial infarction ([facility]) Apr 2009, swith stent placement Obesity BONY treated with BiPAP 07/31/2022 Osteoarthritis Panic disorder Psoriasis PTSD (post-traumatic stress disorder) Pulmonary emboli ([facility]) Rib fracture 09/2023 lt Rotator cuff tear L Shortness of breath Sleep apnea Visual impairment glasses No data recorded No data recorded No data recorded Past Surgical History: Procedure Laterality Date BREAST BIOPSY BREAST CYST EXCISION Cardiac catheterization N/A 01/09/2020 Performed by Yefri Khan MD at [facility] Cardiac catheterization-LV Cors N/A 08/06/2020 Performed by Hazel Painting MD at [facility] SECTION CHOLECYSTECTOMY COLONOSCOPY N/A 04/03/2017 Performed by Jose Beaver MD at [facility] Coronary angiogram and left ventricular gram/pressure N/A 01/09/2020 Performed by Yefri Khan MD at [facility] CORONARY ANGIOPLASTY WITH STENT PLACEMENT CORONARY ARTERY BYPASS GRAFT X4/ THOMPSON/ SVG X3 / RIGHT UPPER LEG OPEN VEIN HARVEST/ LEFT UPPER LEG OPEN VEING HARVEST /GINETTE N/A 08/13/2020 Performed by Leroy Meng MD at [facility] Drug eluting stent left anterior descending N/A 01/09/2020 Performed by Yefri Khan MD at [facility] EXCISION SEROMA LOWER EXTREMITY Left 10/07/2022 Performed by Victor Hugo Vincent DO at [facility] Intravascular ultrasound coronary N/A 08/06/2020 Performed by Hazel Painting MD at [facility] Intravascular ultrasound coronary N/A 01/09/2020 Performed by Yefri Khan MD at [facility] NOTCHARGED/Thrombolysis arterial initial treatment N/A 01/09/2020 Performed by Yefri Khan MD at [facility] TONSILLECTOMY Family History Problem [...] min Stress: No Stress Concern Present (07/25/2023) [employer] - Occupational Stress Questionnaire Feeling of Stress : Only a little Recent Concern: Stress - Stress Concern Present (07/25/2023) [employer] - Occupational Stress Questionnaire Feeling of Stress : Very much Social Connections: Moderately Isolated (07/25/2023) Social Connection and Isolation Panel [NHANES] Frequency of Communication with Friends and Family: Three times a week Frequency of Social Gatherings with Friends and Family: Three times a week Attends [employer]: More than 4 times per year [...] UP No follow-ups on file. PCP: Rajni Steiner Jr, DO Referring Physician: Rajni Steiner DO [address] [place] [address] documented in this encounterOhioHealth Van Wert Hospital03-21-2025 Miscellaneous Notes* Telephone Encounter - Ching Gay RN - 07/15/2024 8:20 AM EDT Last OV 02/19/24 Last CMP 07/07/24.slm documented in this [facility]03-21-2025 Telephone encounter Note* Telephone Encounter - Ching Gay RN - 07/15/2024 8:20 AM EDT Last OV 02/19/24 Last CMP 07/07/24.slm Retroficiency [id number] History of Present illness Narrative* Rajni Steiner, DO - 07/07/2024 1:00 PM EDT IM PROGRESS NOTE Patient - Monet Recinos Age - 64 y.o. - 1960 ASSESSMENT & PLAN 1. IFG (impaired fasting glucose) (Primary) -reviewed with the patient -last A1c 5.9%, but has gained weight -repeat A1c to assess current diabetic status - Hemoglobin A1c; Future 2. Chronic obstructive pulmonary disease, unspecified COPD type ([facility]) -COPD GOLD class B -overall stable -continue Breztri 2 puffs b.i.d. with p.r.n. albuterol 3. Stage 3a chronic kidney disease ([facility]) -GFR ranges 44-49 over the past 6 months -renal protective strategies were reviewed with the patient -continue to avoid NSAIDs, gabapentin -repeat electrolytes, kidney function and GFR to assess for improvement or worsening - CBC auto differential; Future - Comprehensive metabolic panel; Future 4. Chronic respiratory failure with hypoxia and hypercapnia ([facility]) -GOLD class B -patient with stationary and portable oxygen at home -I encouraged her to wear the portable oxygen as much as possible. -most desaturations, when she is active, and this is when she needs it the most. 5. Chronic heart failure with preserved ejection fraction ([facility]) -improved -no longer requiring loop diuretic -GDMT includes Jardiance, spironolactone, propanolol LA 6. Bipolar 2 disorder, major depressive episode ([facility]) -sees Psychiatry on a routine basis -current regimen includes venlafaxine, Lamictal, doxepin, clonazepam, aripiprazole 7. BMI 40.0-44.9, adult ([facility]) -ongoing problem which has worsened due to missing some of her medications -given her overall CV risk, may benefit from initiation of GLP 1 treatment 8. 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 ([facility]) -currently taking atorvastatin 80 mg daily -most [...] Exam Vitals reviewed. Exam conducted with a civil clerk present (Friend/POA). Constitutional: General: She is not [...] in the morning., Disp: 90tablet, Rfl: 3 lapcfcepbz-pxgynnlv-dmhdexcvso (BREZTRI AEROSPHERE) 160-9-4.8 mcg/actuation HFA aerosol inhaler, [...] Final Other Testing No results found. Rajni Steiner DO., [facility] Physicians Office: [phone] documented in this encounterOhioHealth Van Wert Hospital12-03-2024 History of Present illness Narrative* Rajni Steiner DO - 03/29/2024 3:15 PM EST IM PROGRESS NOTE Patient - Monet Recinos Age - 63 y[facility] 1960 [id number] ASSESSMENT & PLAN Video Visit via Real-time Synchronous Audiovisual Provider Location: [facility] INTERNAL MEDIC[facility] - FAMILY MEDICINE [address] [address] Patient Location: Patient's home Video Visit Consent [...] that there are some limitations compared to [id number] evaluations. The patient consented to the presence [...] visit. Physical Exam Exam conducted with a civil clerk present (Friend/POA). Constitutional: General: She is not [...] THE MORNING, Disp: 90 tablet, Rfl: 3 sakyvehoxy-eupluuom-rmbesugpbp (BREZTRI AEROSPHERE) 160-9-4.8 mcg/actuation HFA aerosol inhaler, [...] Final Other Testing No results found. Rajni Steiner DO., [facility] Physicians Office: [phone] documented in this encounterOhioHealth Van Wert Hospital12-03-2024 Miscellaneous Notes* Telephone Encounter - Monica Johnston CMA - 03/29/2024 9:13 AM EST Pts friend called stated pt is having bursing on her legs for no reason , they would like to know if something to be concerned about or maybe a side effect from the pregabalin ? * Telephone Encounter - Rajni Steiner DO - 03/29/2024 9:13 AM EST Message noted. What is happening to her legs? * Telephone Encounter - Monica Johnston CMA - 03/29/2024 9:13 AM EST They are brusing , she's not hirting or bumping anything they are just popping up * Telephone Encounter - Rajni Steiner DO - 03/29/2024 9:13 AM EST Message [...] up again * Telephone Encounter - Rajni Steiner DO - 03/29/2024 9:13 AM EST Message noted. Hard to say without seeing it. We can put her in a slot tomorrow, or try a video visit today documented in this encounterOhioHealth Van Wert Hospital12-03-2024 Telephone encounter Note* Telephone Encounter - Monica Johnston CMA - 03/29/2024 9:13 AM EST Pts friend called stated pt is having bursing on her legs for no reason , they would like to know if something to be concerned about or maybe a side effect from the pregabalin ? [facility] [employer] [id number] Telephone encounter Note* Telephone Encounter - Rajni Steiner DO - 03/29/2024 9:13 AM EST Message noted. What is happening to her legs? [facility]12-03-[facility] Telephone encounter Note* Telephone Encounter - Monica Johnston CMA - 03/29/2024 9:13 AM EST They are brusing , she's not hirting or bumping anything they are just popping up [facility]12-03-[facility] Telephone encounter Note* Telephone Encounter - Rajni Steiner DO - 03/29/2024 9:13 AM EST Message noted. This is not a side effect from pregabalin. Is she taking aspirin for any reason? [facility]12-03-[facility] Telephone encounter Note* Telephone Encounter - Monica Johnston CMA - 03/29/2024 9:13 AM EST She's not taking any aspirin lately bc she's out . She did take some excedrin today . They started about a week ago. [facility]12-03-2024 Telephone encounter Note* Telephone Encounter - Monica Johnston CMA - 03/29/2024 9:13 AM EST She is worried they are blood clots , they just want to know if its something to worry about ? Friend also just stated that she is starting to swelling up again [facility]12-03-2024 Telephone encounter Note* Telephone Encounter - Rajni Steiner DO - 03/29/2024 9:13 AM EST Message noted. Hard to say without seeing it. We can put her in a slot tomorrow, or try a video visit today [facility]11-21-2024 History of Present illness Narrative* Sydnie [...] for her, however she states that the [facility] would not accept his testing. She is [...] tablet Take 80 mg by mouth Daily Mxtutai-Xasxgspbxub-Ixgaydhjbp (Breztri Aerosphere) 160-9-4.8 MCG/ACT aerosol Inhale calcitonin, [...] visit. Past Medical History: Diagnosis Date Agoraphobia ([facility]) Angina at rest ([facility] Anxiety BiPAP (biphasic positive airway pressure) dependence Bipolar disorder ([facility]) Breast injury CAD (coronary artery disease) ([facility]) Cervical disc disorder Chronic kidney disease Cigarette nicotine dependence in remission 10/16/2020 Congestive heart failure (CHF) ([facility]) COPD (chronic obstructive pulmonary disease) ([facility]) COVID-19 04/29/2023 Dementia ([facility]) Dependence on other enabling machines and devices 04/29/2023 Depression ([facility]) Difficulty in walking, not elsewhere classified 04/28/2023 Former smoker 09/26/2022 GERD (gastroesophageal reflux disease) Liver disease Lumbosacral disc disease Memory loss Myocardial infarction ([facility]) BONY (obstructive sleep apnea) Osteoarthritis Panic disorder ([facility]) Personal history of nicotine dependence 04/29/2023 Pneumonia, unspecified organism 04/29/2023 Polyneuropathy, unspecified 04/29/2023 Presence of aortocoronary bypass graft 04/29/2023 Psoriasis ([facility]) Psoriasis, unspecified ([facility]) 05/02/2023 PTSD (post-traumatic stress disorder) ([facility]) Shortness of breath Solitary pulmonary nodule 04/29/2023 Thoracic disc disease Unspecified dementia, mild, without behavioral disturbance, psychotic disturbance, mood disturbance, and anxiety ([facility]) 04/30/2023 Visual impairment Weakness 05/28/2023 Past Surgical [...] send a script for a POC to [facility] today. Tobacco use -- she does continue to smoke on a daily basis. She is currently at a half pack or less. We did have a 4 minute discussion regarding the importance of smoking cessation at today's office visit. Follow up in about 3 months (around 06/17/2024) for COPD, in [place] office. Sydnie Guerrero DO documented in this encounterSaint John's Health [id number] History of Present illness Narrative* Rajni Steiner DO - 03/07/2024 1:00 PM EST IM [...] 0 3. Stage 3a chronic kidney disease ([facility]) -GFR ranges from 36 to 53 over the past year. -renal protective strategies were reviewed with patient, in particular avoidance of NSAIDs and Welch 2 inhibitors -we are evaluating and reducing or eliminating all prescription medications which could affect the kidney -continue to monitor. ACR ordered today - CBC auto differential; Future 4. Chronic heart failure with preserved ejection fraction ([facility]) -GDMT: Jardiance 10 mg daily, propanolol 80 mg daily, spironolactone 25 mg daily, torsemide. -continue home oxygen 5. 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 ([facility] -currently atorvastatin 80 mg daily -repeat lipids [...] Exam Vitals reviewed. Exam conducted with a civil clerk present (Friend/POA). Constitutional: General: She is not [...] THE MORNING, Disp: 90 tablet, Rfl: 3 bnewjcqdwj-pxogvqrv-kmbnlcizjh (BREZTRI AEROSPHERE) 160-9-4.8 mcg/actuation HFA aerosol inhaler, [...] Kim MD on 12/17/2023 11:39 AM Rajni Steiner DO., [facility] Phys[facility] Office: [phone] documented in this [facility]10-28-2024 Miscellaneous Notes* Telephone Encounter - Monica Johnston CMA - 02/22/2024 12:27 PM EDT Pts' friend norma called was wondering what you were going to do with the pregabalin there were no refills , pt stated the gabapentin worked better but needed to know if you were going to refill the pregabalin or in crease the dosage ? * Telephone Encounter - Rajni Steiner DO - 02/22/2024 12:27 PM EDT Message noted. Needs a recheck appointment to discuss * Telephone Encounter - Cathleen Arreola - 02/22/2024 12:27 PM EDT Comes in 03/07 is that okay? * Telephone Encounter - Rajni Steiner DO - 02/22/2024 12:27 PM EDT Message noted. Yes documented in this [facility]10-28-2024 Telephone encounter Note* Telephone Encounter - Monica Johnston CMA - 02/22/2024 12:27 PM EDT Pts' friend norma called was wondering what you were going to do with the pregabalin there were no refills , pt stated the gabapentin worked better but needed to know if you were going to refill the pregabalin or in crease the dosage ? [facility]10-28-[facility] Telephone encounter Note* Telephone Encounter - Rajni Steiner DO - 02/22/2024 12:27 PM EDT Message noted. Needs a recheck appointment to discuss [facility]-28-[facility] Telephone encounter Note* Telephone Encounter - Cathleen Arreola - 02/22/2024 12:27 PM EDT Comes in 03/07 is that okay? [facility]10-28-[facility] Telephone encounter Note* Telephone Encounter - Rajni Steiner DO - 02/22/2024 12:27 PM EDT Message noted. Yes [facility]10-25-2024 History of Present illness Narrative* Saqib Giles MD - 02/19/2024 10:45 AM EDT Monet Recinos Date of visit: 02/19/2024 Date of : 1960 Age: 63 y.o. Patient Active Problem List Diagnosis NSTEMI (non-ST elevated myocardial infarction) ([facility]) Obesity (BMI 30-39.9) 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) Hyperglycemia Cigarette nicotine dependence in remission Depression Liver disease Visual impairment BONY treated with BiPAP Chronic heart failure with preserved ejection fraction ([facility]) Essential hypertension Hx of hyperlipidemia Former smoker Agoraphobia Anxiety Chipped tooth GERD (gastroesophageal reflux disease) Low back pain Osteoarthritis PTSD (post-traumatic stress disorder) Bipolar 2 disorder, major depressive episode ([facility] Cannabis use disorder, mild, abuse Major depressive disorder Panic disorder Weakness BMI 40.0-44.9, adult ([facility]) Chronic respiratory failure with hypoxia and hypercapnia ([facility]) Acute pulmonary embolism without acute cor pulmonale, unspecified pulmonary embolism type ([facility]) Closed wedge compression fracture of T6 vertebra [...] MOUTH IN THE MORNING 90 tablet 3 rcorrcowwf-ugvilkau-jgyfwhpqiw (BREZTRI AEROSPHERE) 160-9-4.8 mcg/actuation HFA aerosol inhaler [...] History: Diagnosis Date Agoraphobia Angina at rest ([facility] Anxiety BiPAP (biphasic positive airway pressure) dependence Patient states she no longer uses a BIPAP 01/28/23 Bipolar disorder ([facility]) Breast injury CHF (congestive heart failure) ([facility]) Chipped tooth Chronic kidney disease COPD (chronic obstructive pulmonary disease) ([facility]) Coronary artery disease Dementia ([facility]) Depression Diarrhea frequent bouts /involuntary Dizziness Fracture, vertebral, lumbar closed ([facility]) GERD (gastroesophageal reflux disease) Headache History of coronary artery bypass graft 08/14/2020 Liver disease Low back pain Lump or mass in breast Memory loss Myocardial infarction ([facility]) Apr 2009, swith stent placement Obesity BONY treated with BiPAP 07/31/2022 Osteoarthritis Panic disorder Psoriasis PTSD (post-traumatic stress disorder) Pulmonary emboli ([facility]) Rib fracture 09/2023 lt Rotator cuff tear L Shortness of breath Sleep apnea Visual impairment glasses No data recorded No data recorded No data recorded Past Surgical History: Procedure Laterality Date BREAST BIOPSY BREAST CYST EXCISION Cardiac catheterization N/A 01/09/2020 Performed by Yefri Khan MD at [facility] Cardiac catheterization-LV Cors N/A 08/06/2020 Performed by Hazel Painting MD at [facility] SECTION CHOLECYSTECTOMY COLONOSCOPY N/A 04/03/2017 Performed by Jose Beaver MD at [facility] Coronary angiogram and left ventricular gram/pressure N/A 01/09/2020 Performed by Yefri Khan MD at [facility] CORONARY ANGIOPLASTY WITH STENT PLACEMENT CORONARY ARTERY BYPASS GRAFT X4/ THOMPSON/ SVG X3 / RIGHT UPPER LEG OPEN VEIN HARVEST/ LEFT UPPER LEG OPEN VEING HARVEST /GINETTE N/A 08/13/2020 Performed by Leroy Meng MD at [facility] Drug eluting stent left anterior descending N/A 01/09/2020 Performed by Yefri Khan MD at [facility] EXCISION SEROMA LOWER EXTREMITY Left 10/07/2022 Performed by Victor Hugo Vincent DO at [facility] Intravascular ultrasound coronary N/A 08/06/2020 Performed by Hazel Painting MD at [facility] Intravascular ultrasound coronary N/A 01/09/2020 Performed by Yefri Khan MD at [facility] NOTCHARGED/Thrombolysis arterial initial treatment N/A 01/09/2020 Performed by Yefri Khan MD at [facility] TONSILLECTOMY Family History Problem [...] min Stress: No Stress Concern Present (07/25/2023) [employer] - Occupational Stress Questionnaire Feeling of Stress : Only a little Recent Concern: Stress - Stress Concern Present (07/25/2023) [employer] - Occupational Stress Questionnaire Feeling of Stress : Very much Social Connections: Moderately Isolated (07/25/2023) Social Connection and Isolation Panel [NHANES] Frequency of Communication with Friends and Family: Three times a week Frequency of Social Gatherings with Friends and Family: Three times a week Attends [employer] Services: More than 4 times per year [...] UP No follow-ups on file. PCP: Rajni Steiner Jr, DO Referring Physician: Rajni Steiner DO [address] [place] [address] documented in this encounterOhioHealth Van Wert Hospital10-24-2024 Miscellaneous Notes* Telephone Encounter - Vicki Bailey CMA - 02/18/2024 9:30 AM EDT Called patient to remind them to bring their most current copy of their medication list with them to their appt. Patient verbalizes understanding. documented in this encounterOhioHealth Van Wert Hospital10-24-2024 Telephone encounter Note* Telephone Encounter - Vicki Bailey CMA - 02/18/2024 9:30 AM EDT Called patient to remind them to bring their most current copy of their medication list with them to their appt. Patient verbalizes understanding. [facility] [employer] [id number] History of Present illness Narrative* Eusebia Huertas, [...] nerve blocks in the past. Last saw [facility] pain clinic 09/2022, PT and aquatic therapy ordered , also RX for zanaflex. Prior treatment: pain clinic [facility] 09/2022, [facility] ER 08/27, MRI T-spine 09/10/23, calcitonin NS, norco, Lumbar MRI [facility] 11/27/22, LT ST Trigger point injx [...] tablet Take 80 mg by mouth Daily [place]-Uegsqkujegz-Cnlpidlade (Breztri Aerosphere) 160-9-4.8 MCG/ACT aerosol Inhale calcitonin, [...] HISTORY: Past Medical History: Diagnosis Date Agoraphobia ([facility]) Angina at rest ([facility]) Anxiety BiPAP (biphasic positive airway pressure) dependence Bipolar disorder ([facility]) Breast injury CAD (coronary artery disease) ([facility]) Cervical disc disorder Chronic kidney disease Congestive heart failure (CHF) ([facility]) COPD (chronic obstructive pulmonary disease) ([facility] Dementia ([facility]) Depression ([facility]) GERD (gastroesophageal reflux disease) Liver disease Lumbosacral disc disease Memory loss Myocardial infarction ([facility]) BONY (obstructive sleep apnea) Osteoarthritis Panic disorder ([facility]) Psoriasis ([facility] PTSD (post-traumatic stress disorder) ([facility]) Shortness of breath Thoracic disc disease Visual [...] Dr. Huertas/guido Huertas D.O. 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 I called back and got no answer and mailbox is full. * Telephone Encounter - Monica Johnston CMA - 02/03/2024 3:42 PM EDT Pt called back stated she really needs a referral for a new fire hydrant operator * Telephone Encounter - Rajni Steiner DO - 02/03/2024 3:42 PM EDT Message noted. Please try again. We need to know which fire hydrant operator is on her insurance plan in order to make a referral. * Telephone Encounter - Cathleen Arreola - 02/03/2024 3:42 PM EDT LM on VM * Telephone Encounter - Sofya Coe CMA - 02/03/2024 3:42 PM EDT Patient's family called back and they need a referral to Dr. Guerrero [id number] [place], [place] * Telephone Encounter - Rajni Steiner DO - 02/03/2024 3:42 PM EDT Message noted. The referral was sent today. She can call and schedule at any time. 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 I called back and got no answer and mailbox is full. [facility]10-09-20[facility] Telephone encounter Note* Telephone Encounter - Monica Johnston CMA - 02/03/2024 3:42 PM EDT Pt called back stated she really needs a referral for a new fire hydrant operator [facility]10-09-2024 Telephone encounter Note* Telephone Encounter - Rajni Steiner DO - 02/03/2024 3:42 PM EDT Message noted. Please try again. We need to know which fire hydrant operator is on her insurance plan in order to make a referral. [facility]10-09-2024 Telephone encounter Note* Telephone Encounter - Cathleen Arreola - 02/03/2024 3:42 PM EDT LM on VM [facility]10-09-2024 Telephone encounter Note* Telephone Encounter - Sofya Coe CMA - 02/03/2024 3:42 PM EDT Patient's family called back and they need a referral to Dr. Guerrero [id number], [place] [facility]10-09-[facility] Telephone encounter Note* Telephone Encounter - Rajni Steiner DO - 02/03/2024 3:42 PM EDT Message noted. The referral was sent today. She can call and schedule at any time. [facility]10-09-[facility] Telephone encounter Note* Telephone Encounter - Cathleen Arreola - 02/03/2024 3:42 PM EDT Referral sent [facility]10-07-2024 Miscellaneous Notes* Telephone Encounter - Vandana Resendiz - 02/01/2024 9:49 AM EDT Patient called and said that she needs office to send POC to [facility] for her oxygen therapy. Focusing Machine Operator let patient know that SE is not the one who wrote the order for the Oxygen therapy and that it was her primary care provider. [facility] stated [facility] that she had to have her oxygen therapy orders through pulmonary provider. Please Advise * Telephone Encounter - Shari Garcia RN - 02/01/2024 9:[address] Steiner, PCP office ordered oxygen for nocturnal only. DME will not provide POC for patient with order for nocturnal oxygen only. Second, PCP office can sign oxygen therapy orders as they were the ones that ordered it. Any physician. Not just pulmonary. Please call patient and update. * Telephone Encounter - Vandana Umair Astrid - 02/01/2024 9:49 AM EDT Focusing Machine Operator called patient in regards earlier call and left voicemail to return call to office for information about her oxygen therapy order. Office phone number provided. documented in this encounterSuburban Community Hospital & Brentwood HospitalUlthera [id number] Telephone encounter Note* Telephone Encounter - Vandana Magana Astrid - 02/01/2024 9:49 AM EDT Patient called and said that she needs office to send POC to [facility] for her oxygen therapy. Focusing Machine Operator let patient know that SE is not the one who wrote the order for the Oxygen therapy and that it was her primary care provider. Patient stated [facility] stated that she had to have her oxygen therapy orders through pulmonary provider. Please Advise [facility]-07-2024 Telephone encounter Note* Telephone Encounter - Shari Garcia RN - 02/01/2024 9:[address] Steiner, PCP office ordered oxygen for nocturnal only. DME will not provide POC for patient with order for nocturnal oxygen only. Second, PCP office can sign oxygen therapy orders as they were the ones that ordered it. Any physician. Not just pulmonary. Please call patient and update. [facility]10-07-2024 Telephone encounter Note* Telephone Encounter - Vandana Resendiz - 02/01/2024 9:49 AM EDT Focusing Machine Operator called patient in regards earlier call and left voicemail to return call to office for information about her oxygen therapy order. Office phone number provided. Retroficiency [phone] History of Present illness Narrative* Eusebia Obregon Aleksandar, DO - 01/26/2024 1:00 PM EDTAssociated Order(s): [...] tablet Take 80 mg by mouth Daily Uqgmbqz-Omaywtauwba-Txgjdxajtw (Breztri Aerosphere) 160-9-4.8 MCG/ACT aerosol Inhale calcitonin, [...] (CMS/HCC) Psoriasis (CMS/HCC) PTSD (post-traumatic stress disorder) ([facility]) Shortness of breath Thoracic disc disease Visual [...] Dr. Huertas/guido Huertas D.O. documented in this encounterSaint John's Health [id number] Miscellaneous Notes* Telephone Encounter - Yadira Barrera RN - 01/20/2024 11:13 AM EDT Previous refill was set to no print New rx pended to pool for signature. Last ov 03/31/2023 Upcoming ov on 02/19/2024 Labs 12/17/2023 documented in this encounterOhioHealth Van Wert Hospital09-25-2024 Telephone encounter Note* Telephone Encounter - Yadira Barrera RN - 01/20/2024 11:13 AM EDT Previous refill was set to no print New rx pended to pool for signature. Last ov 03/31/2023 Upcoming ov on 02/19/2024 Labs 12/17/2023 [facility]09-24-2024 Miscellaneous Notes* Telephone Encounter - Anabela Cueva CMA - 01/19/2024 9:09 AM EDT LM to call back and RS appt from today documented in this encounterOhioHealth Van Wert Hospital09-24-2024 Telephone encounter Note* Telephone Encounter - Anabela Cueva CMA - 01/19/2024 9:09 AM EDT LM to call back and RS appt from today [facility]09-24-2024 Miscellaneous Notes* Telephone Encounter - Anabela Cueva CMA - 01/19/2024 8:40 AM EDT Message is left for patient to call back and reschedule her appt for today. documented in this [facility]09-24-2024 Telephone encounter Note* Telephone Encounter - Anabela Cueva CMA - 01/19/2024 8:40 AM EDT Message is left for patient to call back and reschedule her appt for today. [facility]09-23-2024 Miscellaneous Notes* Telephone Encounter - Vicki Bailey CMA - 01/18/2024 10:32 AM EDT Called patient to remind them to bring their most current copy of their medication list with them to their appt. Patient verbalizes understanding. documented in this encounterOhioHealth Van Wert Hospital09-23-2024 Telephone encounter Note* Telephone Encounter - Vicki Bailey CMA - 01/18/2024 10:32 AM EDT Called patient to remind them to bring their most current copy of their medication list with them to their appt. Patient verbalizes understanding. [facility]09-23-2024 Miscellaneous Notes* Telephone Encounter - Caitie Cabello RN - 01/18/2024 9:06 AM EDT 03/31/23 ov with upcoming appt 01/19/24 01/04/24 BMP PC from pt needing refill documented in this encounterOhioHealth Van Wert Hospital09-23-2024 Telephone encounter Note* Telephone Encounter - Caitie Cabello RN - 01/18/2024 9:06 AM EDT 03/31/23 ov with upcoming appt 01/19/24 01/04/24 BMP PC from pt needing refill [facility]09-17-2024 History of Present illness Narrative* Eusebia Huertas, - 01/12/2024 10:45 AM EDT Images from [...] nerve blocks in the past. Last saw [facility] pain[facility]inic 09/2022, PT and aquatic therapy ordered , also RX for zanaflex. Prior treatment: pain clinic [facility] 09/2022, [facility] ER 08/27, MRI T-spine 09/10/23, calcitonin NS, norco, Lumbar MRI [facility] 11/27/22, LT ST Trigger point injx [...] tablet Take 80 mg by mouth Daily Qjlgkzs-Fqdphzzuope-Tcjbrkuhoq (Breztri Aerosphere) 160-9-4.8 MCG/ACT aerosol Inhale calcitonin, [...] HISTORY: Past Medical History: Diagnosis Date Agoraphobia ([facility]/HCC) Angina at rest ([facility]/HCC) Anxiety BiPAP (biphasic positive airway pressure) dependence Bipolar disorder ([facility]/HCC) Breast injury CAD (coronary artery disease) ([facility]/HCC) Chronic kidney disease Congestive heart failure (CHF) (CMS/HCC) COPD (chronic obstructive pulmonary disease) ([facility]/HCC) Dementia ([facility]/HCC) Depression ([facility]/HCC) GERD (gastroesophageal reflux disease) Liver disease Memory loss Myocardial infarction ([facility]/HCC) BONY (obstructive sleep apnea) Osteoarthritis Panic disorder ([facility]/HCC) Psoriasis ([facility]/HCC) PTSD (post-traumatic stress disorder) ([facility]) Shortness of breath Visual impairment ALLERGIES: Allergies [...] Dr. Huertas/guido Huertas D.O. documented in this encounterSaint John's Health [id number] Miscellaneous Notes* Telephone Encounter - Sofya Coe CMA - 01/07/2024 8:21 AM EDT From Rajni Steiner DO To [employer] Sent and Delivered 01/04/2024 9:12 PM Your kidney and potassium levels are stable from previous No changes today Left this message on her confidential voice mail documented in this encounterSuburban [facility] HospitalPoly[facility]novations09-12-2024 Telephone encounter Note* Telephone Encounter - Sofya Coe CMA - 01/07/2024 8:21 AM EDT From Rajni Steiner DO To Jorje, Monet Dhillon Sent and Delivered 01/04/2024 9:12 PM Your kidney and potassium levels are stable from previous No changes today Left this message on her confidential voice mail [facility] CenterMiria [id number] History of Present illness Narrative* Rajni Steiner DO - 01/04/2024 1:00 PM EDT IM [...] Exam Vitals reviewed. Exam conducted with a civil clerk present (Friend/POA). Constitutional: General: She is not [...] THE MORNING, Disp: 90 tablet, Rfl: 3 oreanshscz-xxvtqdwf-tzsttwvrel (BREZTRI AEROSPHERE) 160-9-4.8 mcg/actuation HFA aerosol inhaler, [...] Detected Not Detected^Not Detected Final Specific gravity [facility] 12/17/2023 1.015 1.003 - 1.035 Final Leukocyte esterase [facility] 12/17/2023 Negative Negative^Negative Final Nitrite [facility] 12/17/2023 Negative Negative^Negative Final Ph 12/17/2023 6.0 5.0 - 8.5 Final Protein [facility] 12/17/2023 Negative Negative^Negative mg/dL Final Urine glucose [facility] 12/17/2023 250 (A) Negative^Negative mg/dL Final Ketones [facility] 12/17/2023 Negative Negative^Negative mg/dL Final Urobilinogen [facility] 12/17/2023 0.2 <1.1 eu/dL Final Bilirubin [facility] 12/17/2023 Negative Negative^Negative Final Hemoglobin [facility] 12/17/2023 Negative Negative^Negative Final Other [...] Zambrano MD on 10/20/2023 8:22 PM Rajni Steiner DO., [facility] Physicians Office: [phone] documented in this encounterOhioHealth Van Wert Hospital09-04-2024 Miscellaneous Notes* Telephone Encounter - Monica Johnston CMA - 12/30/2023 4:51 PM EDT Pts friend called stated pt needs an order for o2 sent to [facility] fax # [phone] * Telephone Encounter - Rajni Steiner DO - 12/30/2023 4:51 PM EDT Message noted. Order was written and faxed to [facility] today * Telephone Encounter - Monica Johnston CMA - 12/30/2023 4:51 PM EDT Ok thank you documented in this encounterOhioHealth Van Wert Hospital09-04-2024 Telephone encounter Note* Telephone Encounter - Monica Johnston CMA - 12/30/2023 4:51 PM EDT Pts friend called stated pt needs an order for o2 sent to [facility] fax # [phone] [facility]09-04-2024 Telephone encounter Note* Telephone Encounter - Rajni Steiner DO - 12/30/2023 4:51 PM EDT Message noted. Order was written and faxed to [facility] today [email or web address] [id number] Telephone encounter Note* Telephone Encounter - Monica Johnston CMA - 12/30/2023 4:51 PM EDT Ok thank you [facility] [employer] [id number] History of Present illness Narrative* Eusebia Huertas DO - 12/29/2023 10:45 AM EDTAssociated Order(s): Trigger Point Injection (CPT 98259 or 08368): left gluteus tej Post-Procedure Diagnose(s): Trigger point of left side of body Images from the original note were not included. HISTORY OF PRESENT ILLNESS: Monet Recinos is an 63 y.o. @ female. Chief complaint Thoracic pain Thoracic: Intermittent back pain over the years with flare up thoracic pain 4 months ago (08/24/23) after a fall in [place] [employer]. Tx at [facility] ER 08/27 with back pain, DX with compression FX T6 and PE-started on eliquis. Follow up with Dr Steiner, calcitonin and norco RX. MRI T-spine done at [facility] 09/10/23. She notes pain in thoracic spine is much improved. She is walking unassisted today. She uses walkeras needed. She is complaining of LT sided low back pain x 2-3 weeks. Taking TYL/IBU, no relief. Denies injury.Pain with sit to stand. Pain at HS. Denies radiation. Denies N/T. Injections and nerve blocks yearsago many years ago. Prior treatment: pain clinic years ago, [facility] ER /, MRI T-spine 09/10/23, calcitonin NS, norco MEDICATION: [...] tablet Take 80 mg by mouth Daily Tawovme-Oswhtfmkqez-Abqknqumnt (Breztri Aerosphere) 160-9-4.8 MCG/ACT aerosol Inhale calcitonin, [...] HISTORY: Past Medical History: Diagnosis Date Agoraphobia ([facility]/HCC) Angina at rest ([facility]) Anxiety BiPAP (biphasic positive airway pressure) dependence Bipolar disorder ([facility]) Breast injury CAD (coronary artery disease) ([facility]) Chronic kidney disease Congestive heart failure (CHF) ([facility]/HCC) COPD (chronic obstructive pulmonary disease) ([facility]/HCC) Dementia ([facility]/HCC) Depression ([facility]) GERD (gastroesophageal reflux disease) Liver disease Memory loss Myocardial infarction ([facility]) BONY (obstructive sleep apnea) Osteoarthritis Panic disorder ([facility]/HCC) Psoriasis ([facility]/HCC) PTSD (post-traumatic stress disorder) ([facility]) Shortness of breath Visual impairment ALLERGIES: Allergies [...] of body M79.10 Trigger Point Injection (CPT 49698 or 88093): left gluteus tej 2. Compression fracture of T6 vertebra with routine healing, subsequent encounter S22.050D XR spine 3. Compression fracture of T8 vertebra with routine healing, subsequent encounter S22.060D 4. Osteoporotic compression fracture of vertebra with routine healing, subsequent encounter M80.88XD Trigger Point Injection (CPT 11844 or 89414): left gluteus tej on 12/29/2023 2:58 PM [...] Dr. Huertas/guido Huertas D.O. documented in this encounterSaint John's Health SystemQqukgvkrys09-75-7823 Miscellaneous Notes* Telephone Encounter - Monica ELIAN Johnston - 12/24/2023 4:07 PM EDT Called pt [...] for [employer] , pts insurnace doesn't cover HZO. So they have to send everything back * Telephone Encounter - Rajni Steiner DO - 12/24/2023 4:07 PM EDT Message noted. I spoke with Norma Chance by phone today. Patient had insurance change, and therefore her DME supplier changed. No longer [employer], now has to [employer]. This is in regards to her oxygen equipment and supplies. The CPAP equipment is handled by the [facility] She gave me the phone number to [employer]: . Please call them to have them either fax us a O2 equipment order for me to complete, or get their fax number so I can send a new order for the oxygen equipment * Telephone Encounter - Tosin Reyes CMA - 12/24/2023 4:07 PM EDT There are 2 different number to contact for her. The CPAP is [phone] but they emailed me what they need for referral process. The oxygen is through [facility] through [facility] and left them a message to fax something for the referral. * Telephone Encounter - Rajni Steiner DO - 12/24/2023 4:07 PM EDT Message noted. The CPAP number does not concern me, that is for the sleep clinic to handle However, I still have not received anything from [employer] documented in this encounterOhioHealth Van Wert Hospital08-29-2024 Telephone encounter Note* Telephone Encounter - Monica [...] for [employer] , pts insurnace doesn't cover HZO. So they have to send everything back [facility] [employer] [id number] Telephone encounter Note* Telephone Encounter - Rajni Steiner DO - 12/24/2023 4:07 PM EDT Message noted. I spoke with Norma Chance by phone today. Patient had insurance change, and therefore her DME supplier changed. No longer [employer], now has to [employer]. This is in regards to her oxygen equipment and supplies. The CPAP equipment is handled by the [facility] She gave me the phone number to [facility]: . Please call them to have them either fax us a O2 equipment order for me to complete, or get their fax number so I can send a new order for the oxygen equipment [facility]08-29-2024 Telephone encounter Note* Telephone Encounter - Tosin Reyes CMA - 12/24/2023 4:07 PM EDT There are 2 different number to contact for her. The CPAP is [phone] but they emailed me what they need for referral process. The oxygen is through [facility] through [facility] and left them a message to fax something for the referral. [facility]08-29-2024 Telephone encounter Note* Telephone Encounter - Rajni Steiner DO - 12/24/2023 4:07 PM EDT Message noted. The CPAP number does not concern me, that is for the sleep clinic to handle However, I still have not received anything from [facility]08-22-2024 Miscellaneous Notes* Telephone Encounter - Johnna Cortes - 12/17/2023 10:37 AM EDT Received call from Tung at sleep lab that [facility] called there stating pt does not qualify for thecontinuous Oxygen to be bled in with PAP. Will set up with PAP only. Per Dr Meadows, pt's February appt needs to be moved up for new face to face and repeat home O2 eval. Routed to Maryellen to schedule.Spoke to Concepcion at [facility] to inform will be retesting pt in order to try to qualify her for the oxygen. * Telephone Encounter - GLORIA Scott - 12/17/2023 10:37 AM EDT Kymberly called patient and moved patient's from February to 01/14/2024 at 3pm with SE in the [place] office. * Telephone Encounter - Johnna Cortes - 12/17/2023 10:37 AM EDT Thanks documented in this encounterOhioHealth Van Wert Hospital08-22-2024 Miscellaneous Notes* Telephone Encounter - Tosin Reyes CMA - 12/17/2023 10:37 AM EDT Patient called and O2 dropped to 70's overnight and now she can barely keep it up to 90. I directedher to the ER. * Telephone Encounter - Rajni Steiner DO - 12/17/2023 10:37 AM EDT Message noted. I agree documented in this encounterOhioHealth Van Wert Hospital08-22-2024 Telephone encounter Note* Telephone Encounter - Johnna Cortes - 12/17/2023 10:37 AM EDT Received call from Tung at sleep lab that [facility] called there stating pt does not qualify for thecontinuous Oxygen to be bled in with PAP. Will set up with PAP only. Per Dr Meadows, pt's November appt needs to be moved up for new face to face and repeat home O2 eval. Routed to Maryellen to schedule.Spoke to Cocnepcion at [facility] to inform will be retesting pt in order to try to qualify her for the oxygen. [facility]08-22-2024 Telephone encounter Note* Telephone Encounter - GLORIA Scott - 12/17/2023 10:37 AM EDT Kymber[employer] called patient and moved patient's from February to 01/14/2024 at 3pm with SE in the [place] office. [facility]08-22-2024 Telephone encounter Note* Telephone Encounter - Johnna Cortes - 12/17/2023 10:37 AM EDT Thanks [facility]08-22-2024 Telephone encounter Note* Telephone Encounter - Tosin Reyes CMA - 12/17/2023 10:37 AM EDT Patient called and O2 dropped to 70's overnight and now she can barely keep it up to 90. I directedher to the ER. [facility]08-22-2024 Telephone encounter Note* Telephone Encounter - Rajni Steiner DO - 12/17/2023 10:37 AM EDT Message noted. I agree [facility]08-20-2024 Miscellaneous Notes* Telephone Encounter - Johnna Cortes - 12/15/2023 1:43 PM EDT Message received from Vicki at [facility] that OON for PAP/ O2. Pt must use [employer] (fax number is location specific). Spoke to Ciarra at [facility] and for pt zip, she must use [place] location. Faxed all info to [phone] for setup with BiPAP and O2. Pt notified via phone/ my chart message also sent. Phnumber of [phone] also given to pt. documented in this encounterOhioHealth Van Wert Hospital08-20-2024 Telephone encounter Note* Telephone Encounter - Johnna Cortes - 12/15/2023 1:43 PM EDT Message received from Vicki at [facility] that OON for PAP/ O2. Pt must use [employer] (fax number is location specific). Spoke to Ciarra at [facility] and for pt zip, she must use [place] location. Faxed all info to [phone] for setup with BiPAP and O2. Pt notified via phone/ my chart message also sent. Phnumber of [phone] also given to pt. [facility]08-15-2024 Miscellaneous Notes* Telephone Encounter - Kaia Jovel MD - 12/10/2023 10:23 AM EDT Patient of Dr. Meadows, BiPAP 14/9 cm of water with 3L/min supplement oxygen recommended, order formcomplete in [facility], please fax Results note sent to patient Titration study on 12/08/2023 (Fgxmmx=057.0 lbs; BMI=35.3 kg/m2) DIAGNOSIS: Obstructive Sleep Apnea [...] on a wedge cushion. documented in this encounterOhioHealth Van Wert Hospital08-15-2024 Telephone encounter Note* Telephone Encounter - Kaia Jovel MD - 12/10/2023 10:23 AM EDT Patient of Dr. Meadows, BiPAP 14/9 cm of water with 3L/min supplement oxygen recommended, order formcomplete in [facility], please fax Results note sent to patient Titration study on 12/08/2023 (Oghstd=831.0 lbs; BMI=35.3 kg/m2) DIAGNOSIS: Obstructive Sleep Apnea [...] elevated such as on a wedge cushion. [employer] Work Phone: [phone]) 235-385507-25-2024 Miscellaneous Notes* Telephone Encounter - Tosin Reyes CMA - 11/19/2023 4:56 PM EDT Patient has been getting shoulder injections thru Dr. Castro and now they are asking for a referral toortho. * Telephone Encounter - Rajni Steiner DO - 11/19/2023 4:56 PM EDT Message noted. Who is looking for the referral? If she is already getting injections, why does she need a new referral? * Telephone Encounter - Tosin Reyes CMA - 11/19/2023 4:56 PM EDT She has switched insurance and so they need a referral to Dr. Castro. * Telephone Encounter - Rajni Steiner DO - 11/19/2023 4:56 PM EDT Message noted. I do not know what or why she is getting the injections for. I have not received any reports or feedback from Dr. Castro, therefore I am unable to make a referral. * Telephone Encounter - Tosin Reyes CMA - 11/19/2023 4:56 PM EDT Patient notified documented in this encounterOhioHealth Van Wert Hospital07-25-2024 Telephone encounter Note* Telephone Encounter - Tosin Reyes CMA - 11/19/2023 4:56 PM EDT Patient has been getting shoulder injections thru Dr. Castro and now they are asking for a referral toortho. [facility]07-25-2024 Telephone encounter Note* Telephone Encounter - Rajin Steiner DO - 11/19/2023 4:56 PM EDT Message noted. Who is looking for the referral? If she is already getting injections, why does she need a new referral? [facility]07-25-2024 Telephone encounter Note* Telephone Encounter - Tosin Reyes CMA - 11/19/2023 4:56 PM EDT She has switched insurance and so they need a referral to Dr. Castro. [facility]07-25-2024 Telephone encounter Note* Telephone Encounter - Rajni Steiner DO - 11/19/2023 4:56 PM EDT Message noted. I do not know what or why she is getting the injections for. I have not received any reports or feedback from Dr. Castro, therefore I am unable to make a referral. [facility] CenterSina [id number] Telephone encounter Note* Telephone Encounter - Tosin Reyes CMA - 11/19/2023 4:56 PM EDT Patient notified [email or web address] [id number] History of Present illness Narrative* Rajni Steiner DO - 11/02/2023 3:30 PM EDT IM PROGRESS NOTE Patient - Monet Recinos Age - 63 y[facility] 1960 [id number] ASSESSMENT & PLAN 1. Venous insufficiency of both lower extremities -secondary to chronic diastolic heart failure, in conjunction with extended dependent positioning of the legs -is on maximum dose diuretics with torsemide 80-120 mg daily -at this time I advised the patient to elevate her legs 30-40 minutes every morning and afternoon, as well as at nighttime -will order zippered compression stockings through [employer] to allow her to be more independent [...] acute cor pulmonale, unspecified pulmonary embolism type ([facility]-HCC) -has completed 2/3 months of anticoagulation -may [...] 3 times a day. No longer taking Lovell. Did see Orthopedic surgery in follow-up, and [...] Exam Vitals reviewed. Exam conducted with a civil clerk present (Friend/POA). Constitutional: General: She is not [...] THE MORNING, Disp: 90 tablet, Rfl: 3 kmfhffgtwo-dmywxano-lczvhvotek (BREZTRI AEROSPHERE) 160-9-4.8 mcg/actuation HFA aerosol inhaler, [...] Gustafson MD on 09/19/2023 12:42 AM Rajni Steiner DO., [facility] Physicians Office: [phone] documented in this encounterOhioHealth Van Wert Hospital07-05-2024 Miscellaneous Notes* Telephone Encounter - Nuha Nichole RN - 10/30/2023 7:30 AM EDT OV 08/03/23 BMP 09/30/23 documented in this encounterOhioHealth Van Wert Hospital07-05-2024 Telephone encounter Note* Telephone Encounter - Nuha Nichole RN - 10/30/2023 7:30 AM EDT OV 08/03/23 BMP 09/30/23 [facility]06-12-2024 Miscellaneous Notes* Telephone Encounter - Daisha Marquez CMA - 10/07/2023 3:08 PM EDT ----- Message from Victor Hugo Vincent DO sent at 10/06/2023 11:58 AM EDT ----- Call and let her know that her ultrasound and mammogram were normal. If she still has problems she should come back to see me. ThanksDr. Cornell documented in this [facility]06-12-2024 Telephone encounter Note* Telephone Encounter - Daisha Marquez CMA - 10/07/2023 3:08 PM EDT ----- Message from Victor Hugo Vincent DO sent at 10/06/2023 11:58 AM EDT ----- Call and let her know that her ultrasound and mammogram were normal. If she still has problems she should come back to see me. Thanks, Dr. Cornell [facility]06-07-2024 Miscellaneous Notes* Telephone Encounter - Nuha Nichole RN - 10/02/2023 12:38 AM EDT OV 08/03/23 BMP 09/30/23 documented in this encounterOhioHealth Van Wert Hospital06-07-2024 Telephone encounter Note* Telephone Encounter - Nuha Nichole RN - 10/02/2023 12:38 AM EDT OV 08/03/23 BMP 09/30/23 [facility]06-05-2024 History of Present illness Narrative* Rajni Steiner, - 09/30/2023 1:30 PM EDT IM PROGRESS NOTE Patient - Monet Recinos Age - 63 y.[facility] 1960 [facility] [id number] ASSESSMENT & PLAN 1. Closed wedge compression fracture of T6 vertebra with routine healing -reviewed orthopedic consult note with the patient, along with recommendations and goals of treatment -patient advised she cannot use ibuprofen, or any NSAID at the current time for her pain because ofher anticoagulation. -therefore, we will continue the Lovell 5-325 b.i.d. pain relief longer than anticipated [...] Chronic respiratory failure with hypoxia and hypercapnia ([facility]) -continue oxygen support nocturnally and during the day as needed -continue Breztri 2 daily - CBC auto differential; Future 5. Chronic heart failure with preserved ejection fraction ([facility]) -current GDMT includes Jardiance 10 mg daily, [...] taking salmon calcitonin nasal spray, cyclobenzaprine, and Lovell 5-325 b.i.d. the pain is improved from initial, but still present on a dailybasis associated with leaning against her back, or prolonged walking or standing. She was seen by Orthopedic surgery regarding cough, but continued conservative treatment was recommended especially in light her current anticoagulation status. She is taking [id number] mg ibuprofen daily try and help her [...] Exam Vitals reviewed. Exam conducted with a civil clerk present (Friend/POA). Constitutional: General: She is not [...] THE MORNING, Disp: 90 tablet, Rfl: 3 teklvayyuy-prcsywuv-kcndlyidvk (BREZTRI AEROSPHERE) 160-9-4.8 mcg/actuation HFA aerosol inhaler, [...] Neely MD on 07/24/2023 10:05 PM Rajni Steiner DO., [facility] Physicians Office: [phone] documented in this encounterOhioHealth Van Wert Hospital05-30-2024 History of Present illness Narrative* Kacey Lamb Kat, MEAT APPRENTICE-PAWN BROKER - 09/24/2023 11:00 AM EDT Subjective Patient [...] nursing note reviewed. Exam conducted with a civil clerk present (service loss control consultant). Constitutional: General: She is in acute distress. [...] YONY Vazquez 09/24/23 1650 documented in this encounterOhioHealth Van Wert Hospital05-15-2024 History of Present illness Narrative* Rajni Steiner, DO - 09/09/2023 1:00 PM EDT Subjective [...] discharge medication. Patient had been admitted to [facility] because of chest pain. Was sharp [...] Exam Vitals reviewed. Exam conducted with a civil clerk present (Friend/POA). Constitutional: General: She is not [...] treatment -no changes today documented in this encounterOhioHealth Van Wert Hospital04-22-2024 Miscellaneous Notes* Telephone Encounter - Monica Johnston CMA - 08/17/2023 10:20 AM EDT Pt called stated that [facility] is waiting for a corrected RX for her portable O2 , stated it needs it sent today she is leaving town in the morning * Telephone Encounter - Rajni Steiner DO - 08/17/2023 10:20 AM EDT Message noted. It was corrected last week. Was it sent? * Telephone Encounter - Cathleen Arreola - 08/17/2023 10:20 AM EDT Will get it out today, was the only one here Thursday documented in this encounterOhioHealth Van Wert Hospital04-22-2024 Telephone encounter Note* Telephone Encounter - Monica Johnston CMA - 08/17/2023 10:20 AM EDT Pt called stated that [facility] is waiting for a corrected RX for her portable O2 , stated it needs it sent today she is leaving town in the morning [facility]04-22-2024 Telephone encounter Note* Telephone Encounter - Rajni Steiner DO - 08/17/2023 10:20 AM EDT Message noted. It was corrected last week. Was it sent? [facility]04-22-2024 Telephone encounter Note* Telephone Encounter - Cathleen Arreola - 08/17/2023 10:20 AM EDT Will get it out today, was the only one here Thursday [facility]04-22-2024 Miscellaneous Notes* Telephone Encounter - Leona Gaffney - 08/17/2023 9:06 AM EDT 08/13 Order received Scheduled PAP @ [facility] on 12/06 My chart confirmation [facility] Medicare / Medicaid Pap Order and 06/25/23 Stephanie Wilson Notes Run with TCO2 monitoring, previously tried/failed CPAP. Low threshold to switch to BiPAP if patient intolerant documented in this encounterOhioHealth Van Wert Hospital04-22-2024 Telephone encounter Note* Telephone Encounter - Leona Gaffney - 08/17/2023 9:06 AM EDT 08/13 Order received Scheduled PAP @ [facility] on 12/06 My chart confirmation [facility] Medicare / Medicaid Pap Order and 06/25/23 Stephanie Meadows Epic Notes Run with TCO2 monitoring, previously tried/failed CPAP. Low threshold to switch to BiPAP if patient intolerant [facility]04-18-2024 Miscellaneous Notes* Telephone Encounter - Kaia Jovel [...] (AHI (3%)=35.8 events/hour; AHI (4%)=13.1 events/hour; Dani SpO2=83.0%;Jybcfg=990.0 lbs; BMI=38.2 kg/m2) DIAGNOSIS: Obstructive Sleep Apnea [...] - PLEASE FACILITATE THANKS documented in this encounterRockingham Memorial HospitalBlue [facility] Group04-18-2024 Telephone encounter Note* Telephone Encounter - Kaia [...] (AHI (3%)=35.8 events/hour; AHI (4%)=13.1 events/hour; Dani SpO2=83.0%;Wcuszj=236.0 lbs; BMI=38.2 kg/m2) DIAGNOSIS: Obstructive Sleep Apnea [...] two hours. A CPAP titration is recommended. [facility] Work Phone: 1(134) 827-736404-18-2024 Telephone encounter Note* Telephone Encounter - Shari Garcia RN - 08/13/2023 2:39 PM EDT SERGIO - PLEASE FACILITATE THANKS [facility]04-18-2024 Miscellaneous Notes* Telephone Encounter - Sofya Coe CMA - 08/13/2023 10:36 AM EDT Anabela from Medical Services called because the order for her O2 has to say POC setting at 2L/Min viaNasal Cannula or her insurance will not cover it. They want us to fax the new order to [phone] * Telephone Encounter - Rajni Steiner DO - 08/13/2023 10:36 AM EDT Message noted. A new order for POC setting at 2L/Min via Nasal Cannula was placed in her chart today. Please fax this to [facility] so she can get her portable O2 concentrator * Telephone Encounter - Cathleen Arreola - 08/13/2023 10:36 AM EDT Got it documented in this encounterOhioHealth Van Wert Hospital04-18-2024 Telephone encounter Note* Telephone Encounter - Sofya Coe CMA - 08/13/2023 10:36 AM EDT Anabela from [facility] called because the order for her O2 has to say POC setting at 2L/Min viaNasal Cannula or her insurance will not cover it. They want us to fax the new order to [phone] [facility]04-18-2024 Telephone encounter Note* Telephone Encounter - Rajni Steiner DO - 08/13/2023 10:36 AM EDT Message noted. A new order for POC setting at 2L/Min via Nasal Cannula was placed in her chart today. Please fax this to [facility] so she can get her portable O2 concentrator [facility]04-18-2024 Telephone encounter Note* Telephone Encounter - Cathleen Arreola - 08/13/2023 10:36 AM EDT Got it Retroficiency [id number] History of Present illness Narrative* Rajni Steiner DO - 08/10/2023 1:00 PM EDT Subjective [...] Exam Vitals reviewed. Exam conducted with a civil clerk present (Friend and POA). Constitutional: General: She [...] partial remission, most recent episode unspecified type ([facility]) - Stable - At next visit, consider weaning off propanolol and doxepin documented in this encounterOhioHealth Van Wert Hospital04-11-2024 Miscellaneous Notes* Telephone Encounter - GLORIA Scott - 08/06/2023 4:43 PM EDT Received call from patient in regard to her POC testing order, publicity writer informed patient that the order was sent to [facility] and that she should contact them if she does not hear from them by next week. Patient verbalized understanding. Patient also asked if she has a current prescription for Breztri, informed patient that a prescription for Breztri was sent to [facility] in [place] on 06/25/2023 with 10 refills, patient verbalized understanding. documented in this encounterOhioHealth Van Wert Hospital04-11-2024 Telephone encounter Note* Telephone Encounter - GLORIA Scott - 08/06/2023 4:43 PM EDT Received call from patient in regard to her POC testing order, publicity writer informed patient that the order was sent to [facility] and that she should contact them if she does not hear from them by next week. Patient verbalized understanding. Patient also asked if she has a current prescription for Breztri, informed patient that a prescription for Breztri was sent to [facility] in [place] on 06/25/2023 with 10 refills, patient verbalized understanding. [facility]04-05-2024 Miscellaneous Notes* Telephone Encounter - Vandana Resendiz - 07/31/2023 11:51 AM EDT Patient called asking about getting a rx for portable oxygen for a trip on 08/17 she is taking. Advised there is a note in for the doctor and that she would get return call once the doctor has responded. documented in this encounterOhioHealth Van Wert Hospital04-05-2024 Telephone encounter Note* Telephone Encounter - Vandana Resendiz - 07/31/2023 11:51 AM EDT Patient called asking about getting a rx for portable oxygen for a trip on 08/17 she is taking. Advised there is a note in for the doctor and that she would get return call once the doctor has responded. [facility]04-01-2024 Nurse Note* Gale Chiang RN - 07/27/2023 2:35 PM EDT Discharge instructions and medications reviewed with pt who verbalized understanding. Oxygen delivered by DME provider who instructed pt and her friend/roommate on use. PIV removed. Pt escorted to [facility] in [place] where her friend was waiting to provide transportation to home. [facility]04-01-2024 Nurse Note* Gale Chiang RN - 07/27/2023 2:35 PM EDT Discharge instructions and medications reviewed with pt who verbalized understanding. Oxygen delivered by DME provider who instructed pt and her friend/roommate on use. PIV removed. Pt escorted to lobby in [place] where her friend was waiting to provide transportation to home. documented in this encounterOhioHealth Van Wert Hospital04-01-2024 Progress note* Discharge Planning Note - DEENA Carty - 07/27/2023 1:04 PM EDT Images from the original note were not included. DISCHARGE PLANNING NOTE Informed on careport from [facility]: Vicki that the home oxygen prescription is wrong, it does not match the home oxygen qualification. Pt needs oxygen with activity and not at rest: Dr Steiner asked to correct order on [employer] chat. Vicki update on careport. Corrected oxygen order and face to face note sent via careport to Vicki at [facility] Await confirmation. DEENA Carty, 07/27/2023, [...] On Applied O2 With Exercise/Ambulation 95 % [facility]04-01-2024 Miscellaneous Notes* Discharge Planning Note - DEENA Carty - 07/27/2023 1:04 PM EDT Images from the original note were not included. DISCHARGE PLANNING NOTE Informed on careport from [facility]: Vicki that the home oxygen prescription is wrong, it does not match the home oxygen qualification. Pt needs oxygen with activity and not at rest: Dr Steiner asked to correct order on [employer] chat. Vicki update on careport. Corrected oxygen order and face to face note sent via careport to Vicki at [facility] Await confirmation. DEENA Carty, 07/27/2023, [...] Referral sent to [facility] [employer] [facility] [employer] [facility] [employer], andPAULETTE Finch ([place]- P# ; F# ) ([place]- P# ; F# ) ([place]- P# ; F# ) ([place]- P# ; F# ) ([place]- P# ; F# ) ([place]- P# ; F# ) ([place]- P# [phone] ; F# [phone]) * Discharge Planning Note - DEENA Raines [...] with Self Care County Information [facility] [place] Patient Information Primary Caregiver Self Support System Immediate family;Extended family (roommate/friend/aid Norma, 3 children out of state) Stressors Type of stressor (does not endorse) Income Information Income Information Disability Referral To Community Resources Denies needs Discharge Planning Living Arrangements (with roommate Norma) Support Systems sales floor manager/psychiatric social worker;Friends;Children;Therapist (friend Norma, 3 children out of state, psychiatrist, [employer] human services case manager) Assistance Needed walker, meals on wheel, [employer] Services Type of Residence Private residence Private Residence 1 union Residence Accessibility Steps into home Number of Steps 5 Home Care Services Yes Type of Home Care Services Home health aide;Meals on Wheels;Other (Comment) ([employer] Services: Norma is paid aid for 2 hrs per day) Community Agencies Currently Utilized Wire Welder;Mental health centers ([employer] Food Service Aide: Elise; Psychiatrist Dr. Collier, [facility]) Patient expects to be discharged to: home [...] utilizing psychiatric services with Dr. Collier in [facility] for medical management; pt does not endorse any mental health concerns, negative [place] screen. Pt friend/roommate Norma provides transportation. Pt is utilizing [employer] Services, meals on wheels & roommate Norma is pt paid care provider for 2 hours per day. Pt relayed she speaks with her daughters who live out of state most days by phone & her son as well; family provides natural supports. Patient's preferred pharmacy is [facility]. PCP verified as Dr. Rajni Steiner. Update from attending, monitoring for home O2. Pt aware of home O2 evaluation; publicity writer reviewed areaE's, pt preference is Hello [employer]. Educated on [facility], pt does [...] clean and dry. Skin protectant as needed. [place] pads in place. * Plan of Care - Mary Cee RN - 07/27/2023 1:31 AM EDT Problem: Pain Goal: Patient goal is pain score less than 4, able to rest, and participant in treatment plan as appropriate Description: INTERVENTIONS: 1. Encourage patient or legal policy services representative to report early pain and ask [...] per policy 9. Teach patient or legal policy services representative interventions for comforting Outcome: Progressing Note: [...] that there are some limitations compared to ezvy-di-uzqv evaluations. We elected to proceed. PULMONARY CONSULT Patient - Monet Dhillon Cool Age - 63 [facility] 1960 [id number] Date of Admission - 07/25/2023 4:29 PM Consulting Service/Physician Consulting: Consulting Providers Provider Service Specialty Nathaniel Carlos MD Z Pulmonology Pulmonary Medicine Primary Care Physician: Rajni Steiner Jr, DO Reason for visit: copd resp [...] longer uses a BIPAP 01/28/23 Bipolar disorder ([facility]) Breast injury CHF (congestive heart failure) ([facility] Chipped tooth Chronic kidney disease COPD (chronic obstructive pulmonary disease) ([facility]) Coronary artery disease Dementia ([facility]) Depression Diarrhea frequent bouts /involuntary Dizziness GERD (gastroesophageal reflux disease) Headache History of coronary artery bypass graft 08/14/2020 Liver disease Low back pain Memory loss Myocardial infarction ([facility]) Apr 2009, swith stent placement Obesity BONY treated with BiPAP 07/31/2022 Osteoarthritis Panic disorder Psoriasis PTSD (post-traumatic stress disorder) Rotator cuff tear L Shortness of breath Sleep apnea Visual impairment glasses Past Surgical History: Procedure Laterality Date BREAST BIOPSY BREAST CYST EXCISION Cardiac catheterization N/A 01/09/2020 Performed by Yefri Khan MD at [facility] Cardiac catheterization-LV Cors N/A 08/06/2020 Performed by Hazel Painting MD at [facility] SECTION CHOLECYSTECTOMY COLONOSCOPY N/A 04/03/2017 Performed by Jose Beaver MD at [facility] Coronary angiogram and left ventricular gram/pressure N/A 01/09/2020 Performed by Yefri Khan MD at [facility] CORONARY ANGIOPLASTY WITH STENT PLACEMENT CORONARY ARTERY BYPASS GRAFT X4/ THOMPSON/ SVG X3 / RIGHT UPPER LEG OPEN VEIN HARVEST/ LEFT UPPER LEG OPEN VEING HARVEST /GINETTE N/A 08/13/2020 Performed by Leroy Meng MD at [facility] Drug eluting stent left anterior descending N/A 01/09/2020 Performed by Yefri Khan MD at [facility] EXCISION SEROMA LOWER EXTREMITY Left 10/07/2022 Performed by Victor Hugo Vincent DO at [facility] Intravascular ultrasound coronary N/A 08/06/2020 Performed by Hazel Painting MD at [facility] Intravascular ultrasound coronary N/A 01/09/2020 Performed by Yefri Khan MD at [facility] NOTCHARGED/Thrombolysis arterial initial treatment N/A 01/09/2020 Performed by Yefri Khan MD at [facility] TONSILLECTOMY Review of Systems [...] BY MOUTH IN THE MORNING 90 tablet jfrhjipgqi-vcqhheym-estpqvbpfl (BREZTRI AEROSPHERE) 160-9-4.8 mcg/actuation HFA aerosol inhaler [...] min Stress: No Stress Concern Present (07/25/2023) [employer] - Occupational Stress Questionnaire Feeling of Stress : Only a little Recent Concern: Stress - Stress Concern Present (07/25/2023) [employer] - Occupational Stress Questionnaire Feeling of Stress : Very much Social Connections: Moderately Isolated (07/25/2023) Social Connection and Isolation Panel [NHANES] Frequency of Communication with Friends and Family: Three times a week Frequency of Social Gatherings with Friends and Family: Three times a week Attends [employer] Services: More than 4 times per year [...] Component Value Units Date/Time Blood culture #1 [[id number]] Collected: 07/25/23 175 Specimen: Blood Updated: 07/26/23 1007 Culture NO GROWTH <24 HRS SARS/FLU A+B/RSV by NAAT/Molecular (M4RT Collection Tube) [[id number]] Collected: 07/25/23 175 Specimen: Nasopharynx Updated: 07/25/23 1925 FLU A PCR Negative FLU B PCR Negative RSV by PCR Negative SARS CoV 2 BY PCR Not Detected Blood culture #2 [[id number]] Collected: 07/25/23 1745 Specimen: Blood Updated: 07/26/23 1007 Culture NO GROWTH <24 HRS SARS/FLU A+B/RSV by NAAT/Molecular (M4RT Collection Tube) [[id number]] Collected: 07/24/232149 Specimen: Nasopharynx Updated: 07/24/232243 FLU A PCR Negative FLU B PCR Negative RSV by PCR Negative SARS CoV 2 BY PCR Not Detected Glucose Results from last 7 days Lab Units 07/26/23 0424 07/25/23 1640 07/24/238 GLUCOSE mg/dL 157* 107* 134* I/O last 3 completed shifts: In: 1001.4 [P.O.:950; I.V.:6; IV Piggyback:45.4] Out: 1325 [Urine:1325] Microbiology Results Procedure Component Value Units Date/Time Blood culture #1 [[id number]] Collected: 07/25/231756 Specimen: Blood Updated: 07/26/23 1007 Culture NO GROWTH <24 HRS SARS/FLU A+B/RSV by NAAT/Molecular (M4RT Collection Tube) [[id number]] Collected: 07/25/231749 Specimen: Nasopharynx Updated: 07/25/23 192 FLU A PCR Negative FLU B PCR Negative RSV by PCR Negative SARS CoV 2 BY PCR Not Detected Blood culture #2 [[id number]] Collected: 07/25/23 174 Specimen: Blood Updated: 07/26/23 1007 Culture NO GROWTH <24 HRS SARS/FLU A+B/RSV by NAAT/Molecular (M4RT Collection Tube) [[id number]] Collected: 07/24/232149 Specimen: Nasopharynx Updated: 07/24/232243 FLU [...] no acute findings, and the mediastinum and santam are grossly negative . Impression: 1. No [...] regurgitation or stenosis. Mitral Valve: There is dqjns-dz-ffhc regurgitation. There is no evidence of mitral valve stenosis. Tricuspid Valve: There is moderate regurgitation. RVSP estimated at 40-45 mmHg. Echo complete W/ contrast Result Date: 11/19/2021 Left Ventricle: Systolic function is normal with an ejection fraction of 55-60%. Aortic Valve: There is no regurgitation or stenosis. Mitral Valve: There is jpdjr-ps-vwza regurgitation. There is no evidence of mitral [...] Description: INTERVENTIONS: 1. Encourage patient or legal policy services representative to report early pain and ask [...] per policy 9. Teach patient or legal policy services representative interventions for comforting Outcome: Progressing Note: Evaluation of progress towards goal: Continue to assess for pain and address accordingly Problem: Moderate - High Risk Fall Score Description: Shearer Fall Score of =/> 25 or indicated by [facility] Assessment Goal: Patient should be free from fall Description: Interventions: 1. [place] to environment 2. Hourly rounds addressing the [...] non-skid footwear 11. Teach patient and patient policy services representative to maintain environment for safety and [...] (cane, walker) within reach 19. Request patient policy services representative bring adaptive equipment/mobility aids from home or obtain and provide as needed 20. Consult pharmacy regarding effects of med's affecting mobility, cognition, and alternatives 21. Obtain physician order for PT if risk factors associated with mobility are present 22. Obtain physician order for OT as appropriate 23. Utilize diversional activities 24. Educate patient and patient policy services representative how to maintain a safe environment during visitationtimes (notify nurse prior to leaving bedside) 25. Consider appropriateness of medical or non-medical dir 26. Set up voiding schedule as appropriate [...] Description: INTERVENTIONS: 1. Encourage patient or legal policy services representative to report early pain and ask [...] per policy 9. Teach patient or legal policy services representative interventions for comforting Outcome: Progressing Note: [...] at the bedside 7. Instruct patient/ patient policy services representative about use of safety devices 8. Include patient/ patient policy services representative in decisions related to safety Outcome: Progressing Note: Evaluation of progress towards goal: Remains free from injury. Safety precautions maintained. Problem: Knowledge Deficit Goal: Patient/patient policy services representative demonstrates understanding of disease process, treatment [...] be free from fall Description: Interventions: 1. [place] to environment 2. Hourly rounds addressing the [...] non-skid footwear 11. Teach patient and patient policy services representative to maintain environment for safety and [...] (cane, walker) within reach 19. Request patient policy services representative bring adaptive equipment/mobility aids from home or obtain and provide as needed 20. Consult pharmacy regarding effects of med's affecting mobility, cognition, and alternatives 21. Obtain physician order for PT if risk factors associated with mobility are present 22. Obtain physician order for OT as appropriate 23. Utilize diversional activities 24. Educate patient and patient policy services representative how to maintain a safe environment during visitationtimes (notify nurse prior to leaving bedside) 25. Consider appropriateness of medical or non-medical dir 26. Set up voiding schedule as appropriate [...] denies shortness of breath. documented in this encounterRockingham Memorial HospitalBlue [facility] Group04-01-2024 Progress note* Discharge Planning Note - Concepcion Vargas - 07/27/2023 11:12 AM EDT DISCHARGE PLANNING NOTE Referral sent to [facility] [employer] [facility] [employer], andPAULETTE Finch ([place]- P# ; F# ) ([place]- P# ; F# ) ([place]- P# ; F# ) ([place]- P# ; F# ) ([place]- P# ; F# ) ([place]- P# ; F# ) ([place]- P# [phone] ; F# [phone]) [facility])04-01-2024 Progress note* Discharge Planning Note - DEENA Raines - 07/27/2023 11:06 AM EDT DISCHARGE PLANNING NOTE Tasked Transition Center to send referral to [facility] [employer] for home O2 with portability for DC today; requested delivery time of equipment. Retroficiency [id number] Hospital course Narrative* Rajni Cardoso DO Obdulia - 07/27/2023 10:45 AM EDT Images from the original note were not included. HOSPITAL DISCHARGE NOTE Patient Name: Monet Recinos : 1960 PCP: Rajni Steiner Jr, DO Date of admission: 07/25/2023 Date of discharge: 07/27/2023 Discharge diagnoses: Principal Problem: Chronic respiratory failure with hypoxia and hypercapnia (CMS-HCC) Active Problems: 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 (CMS-HCC) Essential hypertension Bipolar 2 disorder, major depressive episode (CMS-HCC) Consultants: Consulting Providers Provider Service Specialty Nathaniel [...] 160-9-4.8 mcg/actuation HFA aerosol inhaler Generic drug: lnotevpoos-ajajlwuv-jxsymstlhn Inhale 2 puffs in the morning and [...] on discharging this patient. documented in this encounter[facility] History of Present illness Narrative* Rebecca [...] depression, and bipolar disorder. documented in this encounterOhio[facility]24 Progress note* Discharge Planning Note - DEENA Raines - 07/27/2023 10:21 AM EDT Images from the original note were not included. DISCHARGE PLANNING NOTE 07/27/23 1005 Discharge Disposition Discharge Disposition Home with Self Care County Information County [place] Residence [place] Patient Information Primary Caregiver Self Support System Immediate family;Extended family (roommate/friend/aid Norma, 3 children out of state) Stressors Type of stressor (does not endorse) Income Information Income Information Disability Referral To Community Resources Denies needs Discharge Planning Living Arrangements (with roommate Norma) Support Systems sales floor manager/psychiatric social worker;Friends;Children;Therapist (friend Norma, 3 children out of state, psychiatrist, [employer] human services case manager) Assistance Needed walker, meals on wheel, [employer] Services Type of Residence Private residence Private Residence 1 [facility] Accessibility Steps into home Number of Steps 5 Home Care Services Yes Type of Home Care Services Home health aide;Meals on Wheels;Other (Comment) (P[employer]ORT Services: Norma is paid aid for 2 hrs per day) Community Agencies Currently Utilized Wire Welder;Mental health centers ([employer]AS[employer] Food Service Aide: Elise; Psychiatrist Dr. Collier [facility]) Patient expects to be discharged to: home [...] utilizing psychiatric services with Dr. Collier in [facility] for medical management; pt does not endorse any mental health concerns, negative [place] screen. Pt friend/roommate Norma provides transportation. Pt is utilizing [employer], meals on wheels & roommate Norma is pt paid care provider for 2 hours per day. Pt relayed she speaks with her daughters who live out of state most days by phone & her son as well; family provides natural supports. Patient's preferred pharmacy is [facility]. PCP verified as Dr. Rajni Steiner. Update from attending, monitoring for home O2. Pt aware of home O2 evaluation; publicity writer reviewed areaDME's, pt preference is [facility]. Educated on [facility], pt does [...] Care Navigation following for safe care transition. [facility] Plan of care note* Plan of [...] clean and dry. Skin protectant as needed. [place] pads in place. Retroficiency [id number] Plan of care note* Plan of Care - Mary Cee RN - 07/27/2023 1:31 AM EDT Problem: Pain Goal: Patient goal is pain score less than 4, able to rest, and participant in treatment plan as appropriate Description: INTERVENTIONS: 1. Encourage patient or legal policy services representative to report early pain and ask [...] per policy 9. Teach patient or legal policy services representative interventions for comforting Outcome: Progressing Note: Evaluation of progress towards goal: patient verbalized no pain [facility] Plan of care note* Plan of [...] Nebulizer Duration (Minutes) 10 Position High Abebe's [facility]03-[facility] Consult note* Telehealth Consult - Nathaniel Carlos [...] that there are some limitations compared to qcgy-ci-ckij evaluations. We elected to proceed. PULMONARY CONSULT Patient - Monet Recinos Age - 63 y.o. - 1960 Date of Admission - 07/25/2023 4:29 PM Consulting Service/Physician Consulting: Consulting Providers Provider Service Specialty Nathaniel Carlos MD Z Pulmonology Pulmonary Medicine Primary Care Physician: Rajni Steiner Jr, DO Reason for visit: copd resp [...] longer uses a BIPAP 01/28/23 Bipolar disorder ([facility] Breast injury CHF (congestive heart failure) ([facility] Chipped tooth Chronic kidney disease COPD (chronic obstructive pulmonary disease) ([facility]) Coronary artery disease Dementia ([facility]) Depression Diarrhea frequent bouts /involuntary Dizziness GERD [...] by Yefri Khan MD at [facility] Cardiac catheterization-LV Cors N/A 08/06/2020 Performed by Hazel Painting MD at [facility] SECTION CHOLECYSTECTOMY COLONOSCOPY N/A 04/03/2017 Performed by Jose Beaver MD at [facility] Coronary angiogram and left ventricular gram/pressure N/A 01/09/2020 Performed by Yefri Khan MD at [facility] CORONARY ANGIOPLASTY WITH STENT PLACEMENT CORONARY ARTERY BYPASS GRAFT X4/ THOMPSON/ SVG X3 / RIGHT UPPER LEG OPEN VEIN HARVEST/ LEFT UPPER LEG OPEN VEING HARVEST /GINETTE N/A 08/13/2020 Performed by Leroy Meng MD at [facility] Drug eluting stent left anterior descending N/A 01/09/2020 Performed by Yefri Khan MD at [facility] EXCISION SEROMA LOWER EXTREMITY Left 10/07/2022 Performed by Victor Hugo Vincent DO at [facility] Intravascular ultrasound coronary N/A 08/06/2020 Performed by Hazel Painting MD at [facility] Intravascular ultrasound coronary N/A 01/09/2020 Performed by Yefri Khan MD at [facility] NOTCHARGED/Thrombolysis arterial initial treatment N/A 01/09/2020 Performed by Yefri Khan MD at [facility] TONSILLECTOMY Review of Systems [...] BY MOUTH IN THE MORNING 90 tablet qncjzszbcz-uzywnqwv-koxmpsljeg (BREZTRI AEROSPHERE) 160-9-4.8 mcg/actuation HFA aerosol inhaler [...] min Stress: No Stress Concern Present (07/25/2023) [employer] - Occupational Stress Questionnaire Feeling of Stress : Only a little Recent Concern: Stress - Stress Concern Present (07/25/2023) [employer] - Occupational Stress Questionnaire Feeling of Stress : Very much Social Connections: Moderately Isolated (07/25/2023) Social Connection and Isolation Panel [NHANES] Frequency of Communication with Friends and Family: Three times a week Frequency of Social Gatherings with Friends and Family: Three times a week Attends [facility] Services: More than 4 times per year [...] Component Value Units Date/Time Blood culture #1 [[id number]] Collected: 07/25/231756 Specimen: Blood Updated: 07/26/23 1007 Culture NO GROWTH <24 HRS SARS/FLU A+B/RSV by NAAT/Molecular (M4RT Collection Tube) [[id number]] Collected: 07/25/231749 Specimen: Nasopharynx Updated: 07/25/231924 FLU A PCR Negative FLU B PCR Negative RSV by PCR Negative SARS CoV 2 BY PCR Not Detected Blood culture #2 [[id number]] Collected: 07/25/231744 Specimen: Blood Updated: 07/26/23 1007 Culture NO GROWTH <24 HRS SARS/FLU A+B/RSV by NAAT/Molecular (M4RT Collection Tube) [[id number]] Collected: 07/24/232149 Specimen: Nasopharynx Updated: 07/24/232243 FLU [...] Component Value Units Date/Time Blood culture #1 [[id number]] Collected: 07/25/231756 Specimen: Blood Updated: 07/26/23 1007 Culture NO GROWTH <24 HRS SARS/FLU A+B/RSV by NAAT/Molecular (M4RT Collection Tube) [[id number]] Collected: 07/25/231749 Specimen: Nasopharynx Updated: 07/25/231924 FLU A PCR Negative FLU B PCR Negative RSV by PCR Negative SARS CoV 2 BY PCR Not Detected Blood culture #2 [[id number]] Collected: 07/25/231744 Specimen: Blood Updated: 07/26/23 1007 Culture NO GROWTH <24 HRS SARS/FLU A+B/RSV by NAAT/Molecular (M4RT Collection Tube) [[id number]] Collected: 07/24/232149 Specimen: Nasopharynx Updated: 07/24/232243 FLU [...] regurgitation or stenosis. Mitral Valve: There is bbpkn-kk-hlbl regurgitation. There is no evidence of mitral valve stenosis. Tricuspid Valve: There is moderate regurgitation. RVSP estimated at 40-45 mmHg. Echo complete W/ contrast Result Date: 11/19/2021 Left Ventricle: Systolic function is normal with an ejection fraction of 55-60%. Aortic Valve: There is no regurgitation or stenosis. Mitral Valve: There is wnlmy-ld-klqn regurgitation. There is no evidence of mitral valve stenosis. Tricuspid Valve: There is moderate regurgitation. RVSP calculated at 42 mmHg. RVSP is based on RA pressure of 3 mmHg. ASSESSMENT / PLAN: COPD - BD Acute hypoxic resp failure - O2; wean as tolerated ? Home O2 BONY/OHS BPAP as tolerated Sleep study scheduled for next week DW patient [employer] Work Phone: 1(369) 919-921703-31-2024 Plan of care note* Plan of Care - Gale Chiang RN - 07/26/2023 10:00 AM EDT Problem: Pain Goal: Patient goal is pain score less than 4, able to rest, and participant in treatment plan as appropriate Description: INTERVENTIONS: 1. Encourage patient or legal policy services representative to report early pain and ask [...] per policy 9. Teach patient or legal policy services representative interventions for comforting Outcome: Progressing Note: Evaluation of progress towards goal: Continue to assess for pain and address accordingly Problem: Moderate - High Risk Fall Score Description: [place] Fall Score of =/> 25 or indicated by [facility] Assessment Goal: Patient should be free from fall Description: Interventions: 1. Windber to environment 2. Hourly rounds addressing the [...] non-skid footwear 11. Teach patient and patient policy services representative to maintain environment for safety and [...] (cane, walker) within reach 19. Request patient policy services representative bring adaptive equipment/mobility aids from home or obtain and provide as needed 20. Consult pharmacy regarding effects of med's affecting mobility, cognition, and alternatives 21. Obtain physician order for PT if risk factors associated with mobility are present 22. Obtain physician order for OT as appropriate 23. Utilize diversional activities 24. Educate patient and patient policy services representative how to maintain a safe environment during visitationtimes (notify nurse prior to leaving bedside) 25. Consider appropriateness of medical or non-medical dir 26. Set up voiding schedule as appropriate (every 2 hours) Outcome: Progressing Note: Evaluation of progress towards goal: PT is free of falls, hourly rounding is completed, area is kept clear. [facility] Plan of care note* Plan of [...] Nebulizer Duration (Minutes) 10 Position Semi Abebe's [facility] Plan of care note* Plan of Care - Lissette Mathews RN - 07/26/2023 4:47 AM EDT Problem: Pain Goal: Patient goal is pain score less than 4, able to rest, and participant in treatment plan as appropriate Description: INTERVENTIONS: 1. Encourage patient or legal policy services representative to report early pain and ask [...] per policy 9. Teach patient or legal policy services representative interventions for comforting Outcome: Progressing Note: [...] at the bedside 7. Instruct patient/ patient policy services representative about use of safety devices 8. Include patient/ patient policy services representative in decisions related to safety Outcome: Progressing Note: Evaluation of progress towards goal: Remains free from injury. Safety precautions maintained. Problem: Knowledge Deficit Goal: Patient/patient policy services representative demonstrates understanding of disease process, treatment [...] Score of =/> 25 or indicated by [facility] Assessment Goal: Patient should be free from fall Description: Interventions: 1. Windber to environment 2. Hourly rounds addressing the [...] non-skid footwear 11. Teach patient and patient policy services representative to maintain environment for safety and [...] (cane, walker) within reach 19. Request patient policy services representative bring adaptive equipment/mobility aids from home or obtain and provide as needed 20. Consult pharmacy regarding effects of med's affecting mobility, cognition, and alternatives 21. Obtain physician order for PT if risk factors associated with mobility are present 22. Obtain physician order for OT as appropriate 23. Utilize diversional activities 24. Educate patient and patient policy services representative how to maintain a safe environment during visitationtimes (notify nurse prior to leaving bedside) 25. Consider appropriateness of medical or non-medical dir 26. Set up voiding schedule as appropriate [...] distress noted. PT denies shortness of breath. Retroficiency [id number] History and physical note* Rajni Gimenez MD [...] longer uses a BIPAP 01/28/23 Bipolar disorder ([facility]) Breast injury CHF (congestive heart failure) [place]) Chipped tooth Chronic kidney disease COPD (chronic obstructive pulmonary disease) ([facility]) Coronary artery disease Dementia ([facility]) Depression Diarrhea frequent bouts /involuntary Dizziness GERD (gastroesophageal reflux disease) Headache History of coronary artery bypass graft 08/14/2020 Liver disease Low back pain Memory loss Myocardial infarction ([facility]) Apr 2009, swith stent placement Obesity BONY treated with BiPAP 07/31/2022 Osteoarthritis Panic disorder Psoriasis PTSD (post-traumatic stress disorder) Shortness of breath Sleep apnea Visual impairment glasses PAST SURGICAL HISTORY: Past Surgical History: Procedure Laterality Date BREAST BIOPSY BREAST CYST EXCISION Cardiac catheterization N/A 01/09/2020 Performed by Yefri Khan MD at [facility] Cardiac catheterization-LV Cors N/A 08/06/2020 Performed by Hazel Painting MD at [facility] SECTION CHOLECYSTECTOMY COLONOSCOPY N/A 04/03/2017 Performed by Jose Beaver MD at [facility] Coronary angiogram and left ventricular gram/pressure N/A 01/09/2020 Performed by Yefri Khan MD at [facility] CORONARY ANGIOPLASTY WITH STENT PLACEMENT CORONARY ARTERY BYPASS GRAFT X4/ THOMPSON/ SVG X3 / RIGHT UPPER LEG OPEN VEIN HARVEST/ LEFT UPPER LEG OPEN VEING HARVEST /GINETTE N/A 08/13/2020 Performed by Leroy Meng MD at [facility] Drug eluting stent left anterior descending N/A 01/09/2020 Performed by Yefri Khan MD at [facility] EXCISION SEROMA LOWER EXTREMITY Left 10/07/2022 Performed by Victor Hugo Vincent DO at [facility] Intravascular ultrasound coronary N/A 08/06/2020 Performed by Hazel Painting MD at [facility] Intravascular ultrasound coronary N/A 01/09/2020 Performed by Yefri Khan MD at [facility] NOTCHARGED/Thrombolysis arterial initial treatment N/A 01/09/2020 Performed by Yefri Khan MD at [facility] TONSILLECTOMY Travel History Travel [...] min Stress: No Stress Concern Present (07/25/2023) [employer] - Occupational Stress Questionnaire Feeling of Stress : Only a little Recent Concern: Stress - Stress Concern Present (07/25/2023) [employer] - Occupational Stress Questionnaire Feeling of Stress : Very much Social Connections: Moderately Isolated (07/25/2023) Social Connection and Isolation Panel [NHANES] Frequency of Communication with Friends and Family: Three times a week Frequency of Social Gatherings with Friends and Family: Three times a week Attends [facility] Services: More than 4 times per year [...] BY MOUTH IN THE MORNING 90 tablet towbyhrdlv-gludyffj-bzbbmcihnw (BREZTRI AEROSPHERE) 160-9-4.8 mcg/actuation HFA aerosol inhaler [...] is stable and further pending her course. Retroficiency [id number] History and physical note* Rajni Gimenez MD [...] longer uses a BIPAP 01/28/23 Bipolar disorder ([facility]) Breast injury CHF (congestive heart failure) ([facility]) Chipped tooth Chronic kidney disease COPD (chronic obstructive pulmonary disease) ([facility]) Coronary artery disease Dementia ([facility]) Depression Diarrhea frequent bouts /involuntary Dizziness GERD (gastroesophageal reflux disease) Headache History of coronary artery bypass graft 08/14/2020 Liver disease Low back pain Memory loss Myocardial infarction ([facility]) Apr 2009, swith stent placement Obesity BONY treated with BiPAP 07/31/2022 Osteoarthritis Panic disorder Psoriasis PTSD (post-traumatic stress disorder) Shortness of breath Sleep apnea Visual impairment glasses PAST SURGICAL HISTORY: Past Surgical History: Procedure Laterality Date BREAST BIOPSY BREAST CYST EXCISION Cardiac catheterization N/A 01/09/2020 Performed by Yefri Khan MD at [facility] Cardiac catheterization-LV Cors N/A 08/06/2020 Performed by Hazel Painting MD at [facility] SECTION CHOLECYSTECTOMY COLONOSCOPY N/A 04/03/2017 Performed by Jose Beaver MD at [facility] Coronary angiogram and left ventricular gram/pressure N/A 01/09/2020 Performed by Yefri Khan MD at [facility] CORONARY ANGIOPLASTY WITH STENT PLACEMENT CORONARY ARTERY BYPASS GRAFT X4/ THOMPSON/ SVG X3 / RIGHT UPPER LEG OPEN VEIN HARVEST/ LEFT UPPER LEG OPEN VEING HARVEST /GINETTE N/A 08/13/2020 Performed by Leroy Meng MD at [facility] Drug eluting stent left anterior descending N/A 01/09/2020 Performed by Yefri Khan MD at [facility] EXCISION SEROMA LOWER EXTREMITY Left 10/07/2022 Performed by Victor Hugo Vincent DO at [facility] Intravascular ultrasound coronary N/A 08/06/2020 Performed by Hazel Painting MD at [facility] Intravascular ultrasound coronary N/A 01/09/2020 Performed by Yefri Khan MD at [facility] NOTCHARGED/Thrombolysis arterial initial treatment N/A 01/09/2020 Performed by Yefri Khan MD at [facility] TONSILLECTOMY Travel History Travel [...] min Stress: No Stress Concern Present (07/25/2023) [employer] - Occupational Stress Questionnaire Feeling of Stress : Only a little Recent Concern: Stress - Stress Concern Present (07/25/2023) [employer] - Occupational Stress Questionnaire Feeling of Stress : Very much Social Connections: Moderately Isolated (07/25/2023) Social Connection and Isolation Panel [NHANES] Frequency of Communication with Friends and Family: Three times a week Frequency of Social Gatherings with Friends and Family: Three times a week Attends [facility] Services: More than 4 times per year [...] BY MOUTH IN THE MORNING 90 tablet qzijykunka-byhqpgyo-akqtaypydk (BREZTRI AEROSPHERE) 160-9-4.8 mcg/actuation HFA aerosol inhaler [...] further pending her course. documented in this encounterSub[facility] HospitalUlthera [id number] Note Procedure: Chest x-ray performed Number of views:2 History:Shortness of breath Comparison:07/24/2023 Findings: The heart and lungs show no acute findings, and the mediastinum and satnam are grossly negative . Impression: 1. No acute change. Finalized by Abdelrahman Patel MD on 07/25/2023 5:16 [id number] Physician Emergency department Note* Mary Lock MD [...] - Primary Other Visit Diagnoses COPD exacerbation ([facility]) Relevant Medications ipratropium-albuteroL (DUONEB) 0.5 mg-3 mg(2.5 mg base)/3 mL nebulizer solution 3 mL (Completed) dexAMETHasone sodium phos (PF) (DECADRON) injection 10 mg ipratropium-albuteroL (DUONEB) 0.5 mg-3 mg(2.5 mg base)/3 mL nebulizer solution 3 mL Acute respiratory failure with hypoxia and hypercapnia ([facility]) Past Medical History: Diagnosis Date Agoraphobia Angina at rest Anxiety BiPAP (biphasic positive airway pressure) dependence Patient states she no longer uses a BIPAP 10/4/23 Bipolar disorder ([facility]) Breast injury CHF (congestive heart failure) ([facility]) Chipped tooth COPD (chronic obstructive pulmonary disease) ([facility]) Coronary artery disease Dementia ([facility]) Depression GERD (gastroesophageal reflux disease) History of coronary artery bypass graft 08/14/2020 Liver disease Low back pain Myocardial infarction ([facility]) Apr 2009, swith stent placement Obesity BONY treated with BiPAP 07/31/2022 Osteoarthritis Panic disorder PTSD (post-traumatic stress disorder) Sleep apnea Visual impairment glasses Past Surgical History: Procedure Laterality Date BREAST BIOPSY BREAST CYST EXCISION Cardiac catheterization N/A 01/09/2020 Performed by Yefri Kahn MD at [facility] Cardiac catheterization-LV Cors N/A 08/06/2020 Performed by Hazel Painting MD at [facility] SECTION CHOLECYSTECTOMY COLONOSCOPY N/A 04/03/2017 Performed by Jose Beaver MD at [facility] Coronary angiogram and left ventricular gram/pressure N/A 01/09/2020 Performed by Yefri Khan MD at [facility] CORONARY ANGIOPLASTY WITH STENT PLACEMENT CORONARY ARTERY BYPASS GRAFT X4/ THOMPSON/ SVG X3 / RIGHT UPPER LEG OPEN VEIN HARVEST/ LEFT UPPER LEG OPEN VEING HARVEST /GINETTE N/A 08/13/2020 Performed by Leroy Meng MD at [facility] Drug eluting stent left anterior descending N/A 01/09/2020 Performed by Yefri Khan MD at [facility] EXCISION SEROMA LOWER EXTREMITY Left 10/07/2022 Performed by Victor Hugo Vincent DO at [facility] Intravascular ultrasound coronary N/A 08/06/2020 Performed by Hazel Painting MD at [facility] Intravascular ultrasound coronary N/A 01/09/2020 Performed by Yefri Khan MD at [facility] NOTCHARGED/Thrombolysis arterial initial treatment N/A 01/09/2020 Performed by Yefri Khan MD at [facility] TONSILLECTOMY Travel Screening Question [...] Patient does not use. [AV] 1729 Dr. Steiner noted as PCP, will discuss admit with him. [AV] 1738 Dr. Carrion covering for Dr. Steiner, he accepted admission kindly. [AV] 1738 Discussed with RT Vicki to place patient on BIPAP and need for VBG. BIPAP will help with patient's tachypnea and wheezing. [AV] [address] Carrion messaged regarding updates. Patient remains AAOx4 and GCS 15, speaking in full sentences at this time. There is no unit trust manager available in the ED, so will [...] Clinical Impressions as of 07/25/231926 COPD exacerbation ([facility]) Acute respiratory failure with hypoxia and hypercapnia ([facility]) Hypoxia MDM Medical Decision Making Heena Bob ([facility]) documented for Dr. Lock. Chart Reviewed. Date: [...] Dr. Gimenez who is covering for Dr. Steiner accepted admission. 6:[address] Lock spoke [...] signing this emergency patient record, the Emergency Physician/PRESENTATION DESIGNER/PA-C attests that all entries made into the electronic medical record by arianna John prior to the Physician/PRESENTATION DESIGNER/PA-C signature reflect an accurate accounting of the evaluation and care rendered by that Emergency Physician/PRESENTATION DESIGNER/PA-C. The Emergency Physician/PRESENTATION DESIGNER/PA-C assumes full responsibility for those entries. The Emergency Physician/PRESENTATION DESIGNER/PA-C also attests that any patient testing or treatment that was instituted by nursing staff in accordance to Emergency Department Preemptive Guidelines have been reviewed and unless so stated elsewhere in this patient chart, the Physician/PRESENTATION DESIGNER/PA-C agrees with the testing and care provided. No Additional Attestations Heena Tran 07/25/23 1728 Heena Tran 07/25/23 1811 Heena Tran 07/25/23 1812 Heena Tran 07/25/23 1812 Heena Tran 07/25/23 1824 Mary Lock MD 07/25/23 182 Heena Tran 07/25/23 1837 Heena Tran 07/25/23 1905 Mary Lock MD 07/25/23 192 Mary Lock MD 07/25/231926 [facility]03-30-2024 Emergency department Note* Mary Lock MD [...] - Primary Other Visit Diagnoses COPD exacerbation ([facility]) Relevant Medications ipratropium-albuteroL (DUONEB) 0.5 mg-3 mg(2.5 mg base)/3 mL nebulizer solution 3 mL (Completed) dexAMETHasone sodium phos (PF) (DECADRON) injection 10 mg ipratropium-albuteroL (DUONEB) 0.5 mg-3 mg(2.5 mg base)/3 mL nebulizer solution 3 mL Acute respiratory failure with hypoxia and hypercapnia ([facility]) Past Medical History: Diagnosis Date Agoraphobia Angina at rest Anxiety BiPAP (biphasic positive airway pressure) dependence Patient states she no longer uses a BIPAP 01/28/23 Bipolar disorder ([facility]) Breast injury CHF (congestive heart failure) ([facility]) Chipped tooth COPD (chronic obstructive pulmonary disease) ([facility]) Coronary artery disease Dementia ([facility]) Depression GERD (gastroesophageal reflux disease) History of coronary artery bypass graft 08/14/2020 Liver disease Low back pain Myocardial infarction ([facility]) Apr 2009, swith stent placement Obesity BONY treated with BiPAP 07/31/2022 Osteoarthritis Panic disorder PTSD (post-traumatic stress disorder) Sleep apnea Visual impairment glasses Past Surgical History: Procedure Laterality Date BREAST BIOPSY BREAST CYST EXCISION Cardiac catheterization N/A 01/09/2020 Performed by Yefri Khan MD at [facility] Cardiac catheterization-LV Cors N/A 08/06/2020 Performed by Hazel Painting MD at [facility] SECTION CHOLECYSTECTOMY COLONOSCOPY N/A 04/03/2017 Performed by Jose Beaver MD at [facility] Coronary angiogram and left ventricular gram/pressure N/A 01/09/2020 Performed by Yefri Khan MD at [facility] CORONARY ANGIOPLASTY WITH STENT PLACEMENT CORONARY ARTERY BYPASS GRAFT X4/ THOMPSON/ SVG X3 / RIGHT UPPER LEG OPEN VEIN HARVEST/ LEFT UPPER LEG OPEN VEING HARVEST /GINETTE N/A 08/13/2020 Performed by Leroy Meng MD at [facility] Drug eluting stent left anterior descending N/A 01/09/2020 Performed by Yefri Khan MD at [facility] EXCISION SEROMA LOWER EXTREMITY Left 10/07/2022 Performed by Victor Hugo Vincent DO at [facility] Intravascular ultrasound coronary N/A 08/06/2020 Performed by Hazel Painting MD at [facility] Intravascular ultrasound coronary N/A 01/09/2020 Performed by Yefri Khan MD at [facility] NOTCHARGED/Thrombolysis arterial initial treatment N/A 01/09/2020 Performed by Yefri Khan MD at [facility] TONSILLECTOMY Travel Screening Question [...] Patient does not use. [AV] 1729 Dr. Steiner noted as PCP, will discuss admit with him. [AV] 1738 Dr. Fitzpatrickistand covering for Dr. Steiner, he accepted admission kindly. [AV] 1738 Discussed with RT Cohen to place patient on BIPAP and need for VBG. BIPAP will help with patient's tachypnea and wheezing. [AV] [address] Carrion messaged regarding updates. Patient remains AAOx4 and GCS 15, speaking in full sentences at this time. There is no unit trust manager available in the ED, so will [...] Clinical Impressions as of 07/25/231926 COPD exacerbation ([facility]) Acute respiratory failure with hypoxia and hypercapnia ([facility]) Hypoxia MDM Medical Decision Making Heena Bob ([facility]) documented for Dr. Lock. Chart Reviewed. Date: [...] Dr. Gimenez who is covering for Dr. Steiner accepted admission. 6:[address] Lock spoke [...] signing this emergency patient record, the Emergency Physician/PRESENTATION DESIGNER/PA-C attests that all entries made into the electronic medical record by arianna John prior to the Physician/PRESENTATION DESIGNER/PA-C signature reflect an accurate accounting of the evaluation and care rendered by that Emergency Physician/PRESENTATION DESIGNER/PA-C. The Emergency Physician/PRESENTATION DESIGNER/PA-C assumes full responsibility for those entries. The Emergency Physician/PRESENTATION DESIGNER/PA-C also attests that any patient testing or treatment that was instituted by nursing staff in accordance to Emergency Department Preemptive Guidelines have been reviewed and unless so stated elsewhere in this patient chart, the Physician/PRESENTATION DESIGNER/PA-C agrees with the testing and care provided. No Additional Attestations Heena Tran 07/25/23 1728 Heena Tran 07/25/23 1811 Heena Tran 07/25/23 1812 Heena Tran 07/25/23 1812 Heena Tran 07/25/23 1824 Mary Lock MD 07/25/23 1829 Heena Tran 07/25/23 183 Heena Tran 07/25/23 1905 Mary Lock MD 07/25/231922 Mary Lock MD 07/25/231926 * Jade Alvarez RN - 07/25/2023 4:31 PM EDT Patient presents with complaints of difficulty breathing x's 1 week. Patient states she was seen int ER yesterday and diagnosed with Right Lower Lobe pneumonia. SpO2 on room air 85% documented in this encounterOhio[facility] Emergency department Triage note* Jade Alvarez RN - 07/25/2023 4:31 PM EDT Patient presents with complaints of difficulty breathing x's 1 week. Patient states she was seen inthe ER yesterday and diagnosed with Right Lower Lobe pneumonia. SpO2 on room air 85% [facility]03-06-2024 History of Present illness Narrative* Rajni Steiner, - 07/01/2023 2:15 PM EST IM PROGRESS [...] strengthening. 2. Stage 3a chronic kidney disease ([facility]) -recent GFR 45 -again is on multiple [...] Chronic heart failure with preserved ejection fraction ([facility]) -GDMT currently includes beta-georgi, SGLT 2 agent, [...] Exam Vitals reviewed. Exam conducted with a civil clerk present (Friend/POA). Constitutional: General: She is not [...] THE MORNING, Disp: 90 tablet, Rfl: 3 gfzcvwaweo-cwdgcizt-nhnbqfdidf (BREZTRI AEROSPHERE) 160-9-4.8 mcg/actuation HFA aerosol inhaler, [...] measurable pneumothorax. Right costophrenic angle excluded from [id number]. Impression: 1. Persistent effusions, with or without [...] to lower lung zone airspace opacities. Finalized byDvaid Osorio MD on 04/14/2023 12:50 PM X-ray [...] Aceves DO on 04/13/2023 1:48 PM Rajni Steiner DO., [facility] Physicians Office: [phone] documented in this encounterOhioHealth [facility]-29-[facility]24 Miscellaneous Notes* Telephone Encounter - Heena Mendoza - 06/25/2023 2:20 PM EST Order received Scheduled SN at [facility] on 08/11/23 Confirmation emailed [facility] Medicare Dual Complete Medicaid [place] SN Order and 06/25/23 Stephanie Wilson Notes Quick transition to BIPAP- WITH TCO2 monitoring documented in this encounterOhioHealth [facility]-29-2024 Telephone encounter Note* Telephone Encounter - Heena Mendoza - 06/25/2023 2:20 PM EST Order received Scheduled SN at [facility] on 08/11/23 Confirmation emailed [facility] Medicare Dual Complete Medicaid [place] SN Order and 06/25/23 Stephanie Meadows Epic Notes Quick transition to BIPAP- WITH TCO2 monitoring [facility]02-29-2024 History of Present illness Narrative* Grace Meadows, DO - 06/25/2023 10:00 AM EST Images from the original note were not included. [employer] [facility] And Sleep Progress Note Patient - [...] but also refused. She was admitted to [facility] ICU and seen by Pulmonary there. [...] assess for acuity. Dr. Grace Meadows DO. [facility] Physicians Pulmonary & Critical Care Office: [phone] documented in this encounterOhioHealth [facility]02-29-2024 Miscellaneous Notes* Telephone Encounter - Bipin Allen - 06/25/2023 9:54 AM EST Pt called in to inform that her battery but she is getting it jumped now, she stated that she will still make it to her 10am appt today w/SE Pls advise pt documented in this encounterOhioHealth [facility]02-29-2024 Telephone encounter Note* Telephone Encounter - Bipin Allen - 06/25/2023 9:54 AM EST Pt called in to inform that her battery but she is getting it jumped now, she stated that she will still make it to her 10am appt today w/SE Pls advise pt [facility]02-05-2024 History of Present illness Narrative* Rajni Steiner, DO - 06/01/2023 1:30 PM EST Subjective [...] history. Most recently had prolonged hospitalization at [facility] due to severe pneumonia, and was [...] Exam Vitals reviewed. Exam conducted with a civil clerk present (Friend/POA). Constitutional: General: She is not [...] Chronic heart failure with preserved ejection fraction ([facility]) - Basic Metabolic Panel; Future - CBC auto differential; Future - TSH with Reflex; Future - reviewed the notes from the recent admission to the. -medication had been changed. Repeat lab as above, and adjust medications as needed to maintain heart failure control without dehydration and kidney injury. Bipolar disorder in partial remission, most recent episode unspecified type ([facility]) -patient with longstanding mental health issues including [...] all these medications. 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 ([facility]) -previous CABG -currently aspirin 81 mg daily, atorvastatin and beta-georgi in the form of propanolol [place] -no changes in current regimen BMI 40.0-44.9, adult ([facility]) .- Patient extremely overweight -reviewed need to [...] of medications as above documented in this encounterRockingham Memorial HospitalGOODWIN [id number] Miscellaneous Notes* Telephone Encounter - Maryellen GLORIA Huertas - 05/18/2023 12:35 PM EST Patient called and stated that she was recently discharged from [facility] on 05/15/2023.Patient stated that she was in the hospital from 04/13/2023 - 04/29/2023, which she was then placedat [facility] due to being on a ventilator. Patient [...] GLORIA Scott - 05/18/2023 12:35 PM EST Focusing Machine Operator contacted patient and informed her of [...] will go to ED. documented in this encounterSuburban [facility] Hospital & Brent[facility] HospitalTailored Fit [facility] [id number] Telephone encounter Note* Telephone Encounter - GLORIA Scott - 05/18/2023 12:35 PM EST Patient called and stated that she was recently discharged from [facility] on 05/15/2023.Patient stated that she was in the hospital from 04/13/2023 - 04/29/2023, which she was then placedat [facility] due to being on a ventilator. Patient [...] with BMI 39 Please review and advise. [facility]01-22-2024 Telephone encounter Note* Telephone Encounter - Grace Meadows DO - 05/18/2023 12:35 PM EST Rx sent for doxycycline x 10 days. Needs appt in clinic in May Retroficiency [id number] Telephone encounter Note* Telephone Encounter - GLORIA Scott - 05/18/2023 12:35 PM EST Focusing Machine Operator contacted patient and informed her of [...] stated that she will go to ED. [facility]08-17-2023 Evaluation note* Encounter Date Diagnosis Assessment [...] patient is severely deconditioned I had her food stand manager my office for at least 10 minutes [...] unspecified whether sciatica present (ICD-10 - M54.50) [employer] Other evaluation noteNo assessment information available [facility] Work Phone: Evaluation note* Diagnosis Left shoulder pain, unspecified chronicity- Primary Arthritis of left shoulder region documented in this encounter [facility] HealthcareEvaluation note* Diagnosis Trigger point of left side of body- Primary Arthritis of left sacroiliac joint (CMS/HCC) Lumbosacral pain Pain of left sacroiliac joint documented in this encounter [facility] HealthcareEvaluation note* Diagnosis Chronic obstructive pulmonary disease, unspecified COPD type (CMS/HCC)- Primary Chronic respiratory failure with hypoxia and hypercapnia (CMS/HCC) Cigarette smoker Tobacco use disorder documented in this encounter [facility] HealthcareEvaluation note* Diagnosis Trigger point of left side of body- Primary documented in this encounter [facility] HealthcareEvaluation note* Diagnosis Trigger point of left side of body- Primary Compression fracture of T6 vertebra with routine healing, subsequent encounter Compression fracture of T8 vertebra with routine healing, subsequent encounter Osteoporotic compression fracture of vertebra with routine healing, subsequent encounter [facility] Diagnosis Atherosclerosis of [place] coronary artery of [place] heart without angina pectoris Hx of hyperlipidemia [facility]* Diagnosis Peripheral polyneuropathy documented [facility]* Diagnosis BONY (obstructive sleep apnea)- Primary Obstructive sleep apnea (adult) (pediatric) Hypoxemia associated with sleep documented in this encounter [facility]* Diagnosis Closed wedge compression fracture of T6 vertebra with routine healing- Primary Acute pulmonary embolism without acute cor pulmonale, unspecified pulmonary embolism type ([facility]) Venous insufficiency of both lower extremities Chronic respiratory failure with hypoxia and hypercapnia ([facility]) Chronic heart failure with preserved ejection fraction ([facility]) Spinal stenosis of lumbar region with neurogenic claudication Peripheral polyneuropathy B12 deficiency documented in this encounter [facility]* Diagnosis Chronic heart failure with preserved ejection fraction ([facility]) Atherosclerosis of [place] coronary artery of [place] heart without angina pectoris documented in this encounter [facility]* Diagnosis Closed wedge compression fracture of T6 vertebra with routine healing documented [facility] this encounter [facility]* Diagnosis Closed wedge compression fracture of T6 vertebra with routine healing- Primary Acute pulmonary embolism without acute cor pulmonale, unspecified pulmonary embolism type ([facility]) Spinal stenosis of lumbar region with neurogenic claudication documented in this encounter [facility]* Diagnosis Gastro-esophageal reflux disease without esophagitis documented in this encounter [facility]* Diagnosis Spinal stenosis of lumbar region with neurogenic claudication- Primary documented in this encounter [facility]* Diagnosis Closed wedge compression fracture of T6 vertebra with routine healing documented in this encounter [facility]* Diagnosis Chronic heart failure with preserved ejection fraction ([facility])- Primary Bipolar disorder in partial remission, most recent episode unspecified type ([facility]) 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 ([facility]) BMI 40.0-44.9, adult ([facility]) BONY treated with BiPAP documented in this encounter [facility]* Diagnosis Flu-like symptoms- Primary Community acquired pneumonia, unspecified laterality Chronic heart failure with preserved ejection fraction (CMS-HCC) Community acquired pneumonia, unspecified laterality Chronic heart failure with preserved ejection fraction ([facility]) documented in this encounter [facility]* Diagnosis Shortness of breath Chronic heart failure with preserved ejection fraction ([facility]) documented in this encounter [facility]* Diagnosis BONY treated with BiPAP- Primary Chronic obstructive pulmonary disease, unspecified COPD type ([facility]) Shortness of breath Cigarette nicotine dependence in remission documented in this encounter [facility]* Diagnosis Venous insufficiency of both lower extremities- Primary Chronic heart failure with preserved ejection fraction ([facility]) Acute pulmonary embolism without acute cor pulmonale, unspecified pulmonary embolism type ([facility]) B12 deficiency documented in this encounter [facility]* Diagnosis Fibromyalgia syndrome Unspecified myalgia and myositis documented in this encounter [facility]* Diagnosis Fibromyalgia syndrome- Primary Unspecified myalgia and myositis Stage 3a chronic kidney disease ([facility]) BONY treated with BiPAP Chronic heart failure with preserved ejection fraction ([facility]) Obesity (BMI 30-39.9) documented in this encounter [facility]* Diagnosis Chronic respiratory failure with hypoxia and hypercapnia (CMS-HCC)- Primary COPD exacerbation ([facility]) Obstructive chronic bronchitis with exacerbation Acute respiratory failure with hypoxia and hypercapnia ([facility]) Hypoxia Hypoxemia Chronic respiratory failure with hypoxia and hypercapnia ([facility]) Bipolar 2 disorder, major depressive episode ([facility]) Essential hypertension Unspecified essential hypertension 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) documented in this encounter [facility]* Diagnosis Unilateral groin pain, right- Primary Spinal stenosis of lumbar region with neurogenic claudication Chronic respiratory failure with hypoxia and hypercapnia ([facility]) Chronic heart failure with preserved ejection fraction ([facility]) BONY treated with BiPAP Bipolar disorder in partial remission, most recent episode unspecified type ([facility]) documented in this encounter [facility]* Diagnosis BONY treated with BiPAP documented in this encounter [facility]* Diagnosis Spinal stenosis of lumbar region with neurogenic claudication documented in this encounter [facility]* Diagnosis Chronic respiratory failure with hypoxia and hypercapnia (CMS-HCC)- Primary BONY treated with BiPAP Spinal stenosis of lumbar region with neurogenic claudication Chronic heart failure with preserved ejection fraction (CMS-HCC) documented in this encounter [facility]* Diagnosis Chronic heart failure with preserved ejection fraction (CMS-HCC) documented in this encounter [facility]* Diagnosis Spinal stenosis of lumbar region with neurogenic claudication documented in this encounter [facility]* Diagnosis Chronic heart failure with preserved ejection fraction (CMS-HCC) documented in this encounter [facility]* Diagnosis Chronic heart failure with preserved ejection fraction (CMS-HCC) documented in this encounter [facility]* Diagnosis 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 ([facility])- Primary documented in this encounter [facility]* Diagnosis IFG (impaired fasting glucose)- Primary Peripheral polyneuropathy Stage 3a chronic kidney disease ([facility]) Chronic heart failure with preserved ejection fraction ([facility]) 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 ([facility]) documented in this encounter [facility]* Diagnosis Gastro-esophageal reflux disease without esophagitis documented in this encounter [facility]* Diagnosis Contusion of lower leg, unspecified laterality, initial encounter- Primary documented in this encounter [facility]* Diagnosis IFG (impaired fasting glucose)- Primary Chronic obstructive pulmonary disease, unspecified COPD type ([facility]) Stage 3a chronic kidney disease ([facility]) Chronic respiratory failure with hypoxia and hypercapnia ([facility]) Chronic heart failure with preserved ejection fraction ([facility]) Bipolar 2 disorder, major depressive episode ([facility]) BMI 40.0-44.9, adult ([facility]) 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 ([facility]) B12 deficiency Peripheral polyneuropathy Arthritis of left sacroiliac joint ([facility]) documented [facility] encounter [facility]* Diagnosis Chronic heart failure with preserved ejection fraction ([facility]) Atherosclerosis of [place] coronary artery of [place] heart without angina pectoris documented [facility] Diagnosis Gastro-esophageal reflux disease without esophagitis documented [facility]* Diagnosis Chronic heart failure with preserved ejection fraction (CMS-HCC)- Primary 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 Hx of CABG Postsurgical aortocoronary bypass status documented in this encounter [facility]* Diagnosis Chronic obstructive pulmonary disease, unspecified COPD type ([facility])- Primary Chronic respiratory failure with hypoxia and hypercapnia ([facility]) BONY (obstructive sleep apnea) Obstructive sleep apnea (adult) (pediatric) [facility] Diagnosis Cervicogenic headache- Primary Headache Orthostatic hypotension Chronic heart failure with preserved ejection fraction ([facility]) Fibromyalgia syndrome Unspecified myalgia and myositis documented [facility]* Diagnosis Peripheral polyneuropathy Cervicogenic headache Headache documented in this encounter [facility]* Diagnosis Peripheral polyneuropathy documented in [facility]* Diagnosis Chronic heart failure with preserved ejection fraction (CMS-HCC)- Primary Pulmonary hypertension ([facility]) Other chronic pulmonary heart diseases Nonrheumatic tricuspid valve regurgitation Essential hypertension Unspecified essential hypertension Atherosclerosis of [place] coronary artery of [place] heart without angina pectoris History of four vessel coronary artery bypass graft NSTEMI (non-ST elevated myocardial infarction) ([facility]) Acute myocardial infarction, subendocardial infarction, episode of care unspecified documented [facility] this encounter [facility]* Diagnosis Chronic heart failure with preserved ejection fraction ([facility])- Primary Essential hypertension Unspecified essential hypertension Pulmonary hypertension ([facility]) Other chronic pulmonary heart diseases Nonrheumatic tricuspid valve regurgitation Atherosclerosis of [place] coronary artery of [place] heart without angina pectoris History of four vessel coronary artery bypass graft documented in this encounter [facility]* Diagnosis Microcytic anemia- Primary Unspecified iron deficiency anemia Gastro-esophageal reflux disease without esophagitis Stage 3a chronic kidney disease ([facility]) Spinal stenosis of lumbar region with neurogenic claudication documented in this encounter [facility]* Diagnosis 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 documented in this encounter [facility]* Diagnosis Chronic diastolic heart failure (CMS-HCC)- Primary Chronic diastolic heart failure Pulmonary hypertension (CMS-HCC) Other chronic pulmonary heart diseases Nonrheumatic tricuspid valve regurgitation documented in this [facility]* Diagnosis Chronic heart failure with preserved ejection fraction (CMS-HCC)- Primary documented in this [facility]* Diagnosis Chronic diastolic heart failure (CMS-HCC)- Primary Chronic diastolic heart failure documented in [facility]* Diagnosis Gastro-esophageal reflux disease without esophagitis documented in this [facility]* Diagnosis Chronic heart failure with preserved ejection fraction (CMS-HCC) Atherosclerosis of [place] coronary artery of [place] heart without angina pectoris documented in this [facility] System[facility] general Narrative - Reported* Type Description Date Medical History alcoholism Medical HistoryArthritisMedical HistoryemphysemaMedical Historygall bladder diseaseMedical Historyheart diseaseMedical Historyhigh cholesterolMedical Historymigraine headachesMedical HistoryobesityMedical HistorypneumoniaMedical Historypsychiatric disorderMedical Historychronic depressionMedical History anxietySurgical HistoryC sectionSurgical HistorytonsillectomySurgical History gall bladderSurgical Historybreast lump removed [id number] Historyopen heart surgeryHospitalization Historysee above surg. hx. [employer] Other Hospital Discharge instructionsNot on filedocumented in [...] SystemInstructionsNot on filedocumented in this encounterPro[facility] SystemInstructions* Attachments The following attachments cannot be sent through Care Everywhere. * Esophagitis (Gabonese) * Patellar Tendinopathy (Gabonese) documented in this encounterPro[facility] SystemInstructionsNot on file documented in this encounterProMedica Health SystemInstructionsNot on file documented in this encounterProMedica Health SystemInstructionsNot on file documented in this encounterPro[facility] SystemInstructionsNot on file documented in this encounterPro[facility]ica [facility] SystemInstructionsNot on file documented in this encounterProMedica [facility] SystemInstructionsNot on file documented in this encounterProMedica Health SystemInstructionsNot on file documented in this [facility]Pro[facility] Summary Purpose Family History No Family History Records FoundNo Family History Records FoundNo Family History Records FoundNo Family History Records FoundNo Family History Records FoundNo Family History Records FoundNo Family History Records FoundNo Family History Records Found Advance Directives Advance Directive Response Recorded Date/ Time Advance Directives No December 3:14pm TypeDate RecordedPatient RepresentativeExplanationDurable Power of Document Control Supervisor 05/15/2023 8:14 AMLiving Will12/19/2021 11:54 AMLIVING WILLLiving Will11/22/2021 1:59 PMDurable Power of Attorney11/22/2021 1:58 PMDate ActivatedDate Inactivated Comments08/28/2023 4:38 AM08/29/2023 11:50 AMDate ActivatedDate InactivatedComments 08/28/2023 4:09 AM08/28/2023 4:38 AMDate ActivatedDate InactivatedComments07/25/2023 9:03 PM07/27/2023 4:44 PMDate ActivatedDate InactivatedComments05/28/2023 1:53 AM 05/28/2023 12:27 PMDate ActivatedDate HxbtecnikewYoxyihas00/19/2023 10:09 PM 04/29/2023 6:44 PMDate ActivatedDate InactivatedComments07/25/2023 9:03 PM07/27/2023 4:44 PMDate ActivatedDate InactivatedComments05/28/2023 1:53 AM05/28/2023 12:27 PM Date ActivatedDate FlrnmvftygmSufwdaws56/19/2023 10:09 PM04/29/2023 6:44 PMDate ActivatedDate InactivatedComments08/06/2020 11:59 AM08/23/2020 3:53 PMDate ActivatedDate InactivatedComments08/06/2020 11:59 AM08/06/2020 11:59 AMTypeDate RecordedPatient RepresentativeExplanationDurable Power of Attorney05/15/2023 8:14 AMLiving Will12/19/2021 11:54 AMLIVING WILLLiving Will11/22/2021 1:59 PMDurable Power of Attorney11/22/2021 1:58 PMDate ActivatedDate InactivatedComments 07/25/2023 9:03 PM07/27/2023 4:44 PMDate ActivatedDate InactivatedComments05/28/2023 1:53 AM05/28/2023 12:27 PMDate ActivatedDate LdtswqptuqlRekgpavj01/19/2023 10:09 PM04/29/2023 6:44 PMDate ActivatedDate InactivatedComments08/06/2020 11:59 AM 08/23/2020 3:53 PMDate ActivatedDate InactivatedComments08/06/2020 11:59 AM 08/06/2020 11:59 AMCode StatusDate ActivatedDate InactivatedCommentsFull Code 04/14/2023 10:09 PM04/29/2023 6:44 PMCode StatusDate ActivatedDate Inactivated CommentsFull Code08/06/2020 11:59 AM08/23/2020 3:53 PMFull Code08/06/2020 11:59 AM 08/06/2020 11:59 AMFull Code01/09/2020 6:57 AM01/10/2020 10:47 PMCode StatusDate ActivatedDate InactivatedCommentsFull Code05/28/2023 1:53 AM05/28/2023 12:27 PMCode StatusDate ActivatedDate InactivatedCommentsFull Code04/14/2023 10:09 PM04/29/2023 6:44 PMFull Code08/06/2020 11:59 AM08/23/2020 3:53 PMFull Code08/06/2020 11:59 AM 08/06/2020 11:59 AMFull Code01/09/2020 6:57 AM01/10/2020 10:47 PMCode StatusDate ActivatedDate InactivatedCommentsFull Code05/28/2023 1:53 AM05/28/2023 12:27 PMCode StatusDate ActivatedDate InactivatedCommentsFull Code04/14/2023 10:09 PM04/29/2023 6:44 PMFull Code08/06/2020 11:59 [...] ActivatedDate InactivatedComments05/28/2023 1:53 AM05/28/2023 12:27 PMDate ActivatedDate PtbzphfmsyoKyeskgbf32/19/2023 10:09 PM04/29/2023 6:44 PMCode StatusDate Activated Date [...] Procedures Follow-up with primary care provider Rajni Steiner, DO [address] [place] [address] Referral IDStatusReasonStart DateExpiration DateVisits RequestedVisits [id number] Review/[id number] / ProceduresReferred By ContactReferred To Contact Procedures Adult diet Rajni Steiner, DO [address] [place] [address] Referral IDStatusReasonStart DateExpiration DateVisits RequestedVisits [id number] Review/[id number] / ProceduresReferred By ContactReferred To [facility] Diagnoses Chronic heart failure with preserved ejection fraction ([facility] Rajni Steiner, DO [address] [place] [address] [facility] [id number] [place] [address] Phone: [phone] Fax: [phone] Referral IDStatusReasonStart DateExpiration DateVisits RequestedVisits [id number] Review Patient Preference /[id number] / ProceduresReferred By ContactReferred To Contact Diagnoses BONY treated with BiPAP Procedures Split Night Sleep Study Grace Meadows DO [address] [address] Referral IDStatusReasonStart DateExpiration DateVisits RequestedVisits [id number] Review/[id number] / ProceduresReferred By ContactReferred To Contact Diagnoses BONY (obstructive sleep apnea) Hypoxemia associated with sleep Procedures Polysomnography 4 or more parameters with PAP titration Grace Meadows DO [address] [facility] [address] [place] [address] Referral IDStatusReasonStart DateExpiration DateVisits RequestedVisits [id number] Review/[id number] / ProceduresReferred By ContactReferred To Contact Diagnoses Trigger point of left side of body Procedures Trigger Point Injection ([place] [address] [place] [address]): left gluteus tej [facility] [address] [facility] [address] [place] [address] Referral IDStatusReasonStart DateExpiration DateVisits RequestedVisits [id number]/3/20243/[id number] / Procedures Referred By ContactReferred To ContactOrthopaedic Surgery Diagnoses Left shoulder pain, unspecified chronicity Procedures L Inj/Asp: L subacromial bursa Eusebia Huertas, DO [address] [facility] [address] [place] [address] Referral IDStatusReasonStart DateExpiration DateVisits RequestedVisits [id number]/1/20243/ Additional Source Comments INFORMATION SOURCE (unrecogn ized section and content) DATE CREATED AUTHOR 02/03/2018 [facility] DATE CREATED AUTHOR AUTHOR'S ORGANIZ ATION 12/21/2022 [facility] DATE CREATED AUTHOR AUTHOR'S ORGANIZ ATION 05/03/2023 [facility] DATE CREATED AUTHOR AUTHOR'S ORGANIZ ATION 07/10/2024 [facility] DATE CREATED AUTHOR AUTHOR'S ORGANIZ ATION 09/24/2024 [facility] DATE CREATED AUTHOR AUTHOR'S ORGANIZ ATION 12/17/2024 [facility] DATE CREATED AUTHOR AUTHOR'S ORGANIZ ATION 02/18/2025 [facility] DATE CREATED AUTHOR AUTHOR'S ORGANIZ ATION 02/24/2025 [facility] Care Teams (unrecognized sec tion and content) Team Status: Active Member Role Status Dates Saqib Fowler PA-C Primary Care Provider Activ e Team Status: Inactive Member Role Status Dates Saqib Fowler PA-C Primary Care Provider Activ e [facility] ProviderActiveTeam MemberRelationshipSpecialtyStart DateEnd Date Rajni Steiner MD [address] [place] [address] PCP - GeneralInternal Medicine08/11/23Team MemberRelationshipSpecialtyStart Date End Date Rajni Steiner MD [address] [place] [address] PCP - GeneralInternal Medicine08/11/23Team MemberRelationshipSpecialtyStart Date End Date Rajni Steiner MD [address] [place] [address] PCP - GeneralInternal Medicine08/11/23Team MemberRelationshipSpecialtyStart Date End Date Rajni Steiner MD [address] [place] [address] PCP - GeneralInternal Medicine08/11/23Team MemberRelationshipSpecialtyStart Date End Date Rajni Steiner MD [address] [place] [address] PCP - GeneralInternal Medicine08/11/23Team MemberRelationshipSpecialtyStart Date End Date Rajni Steiner MD [address] [place] [address] PCP - GeneralInternal Medicine08/11/23Team MemberRelationshipSpecialtyStart Date End Date Rajni Steiner MD [address] [place] [address] PCP - GeneralInternal Medicine08/11/23Team MemberRelationshipSpecialtyStart Date End Date Rajni Steiner MD [address] [place] [address] PCP - GeneralInternal Medicine08/11/23Team MemberRelationshipSpecialtyStart Date End Date Rajni Steiner MD [address] [place] [address] PCP - GeneralInternal Medicine08/11/23Team MemberRelationshipSpecialtyStart Date End Date Rajni Steiner DO [address] [place] [address] PCP - GeneralInternal Medicine12/17/23Team MemberRelationshipSpecialtyStart Date End Date Rajni Steiner DO [address] [place] [address] PCP - GeneralInternal Medicine12/17/23Team MemberRelationshipSpecialtyStart Date End Date Rajni Steiner DO [address] [place] [address] PCP - GeneralInternal Medicine07/01/23Team MemberRelationshipSpecialtyStart Date End Date Rajni Steiner DO [address] [place] [address] PCP - GeneralInternal Medicine07/01/23Team MemberRelationshipSpecialtyStart Date End Date Rajni Steiner DO [address] [place] [address] PCP - GeneralInternal Medicine07/01/23Team MemberRelationshipSpecialtyStart Date End Date Rajni Steiner DO [address] [place] [address] PCP - GeneralInternal Medicine07/01/23Team MemberRelationshipSpecialtyStart Date End Date Vickyumair Rajni DO Janae [address] [place] [address] PCP - GeneralInternal Medicine08/24/23Team MemberRelationshipSpecialtyStart Date End Date Vickyumair Rajni Janae DO [address] [place] [address] PCP - GeneralInternal Medicine08/24/23Team MemberRelationshipSpecialtyStart Date End Date Vickyumair Rajni DO Janae [address] [place] [address] PCP - GeneralInternal Medicine08/24/23Team MemberRelationshipSpecialtyStart Date End Date No Pcp, [place] [address] PCP - GeneralFamily Zmfimefo37/18/23Team MemberRelationshipSpecialtyStart Date End Date No Pcp, [place] [address] PCP - GeneralFamily Duwuecut19/18/23Team MemberRelationshipSpecialtyStart Date End Date Rajni Steiner DO [address] [place] [address] PCP - GeneralInternal Medicine08/24/23Team MemberRelationshipSpecialtyStart Date End Date Rajni Steiner DO [address] [place] [address] PCP - GeneralInternal Medicine08/24/23Team MemberRelationshipSpecialtyStart Date End Date Rajni Steiner DO [address] [place] [address] PCP - GeneralInternal Medicine08/24/23Team MemberRelationshipSpecialtyStart Date End Date Rajni Steiner DO [address] [place] [address] PCP - GeneralInternal Medicine08/24/23Team MemberRelationshipSpecialtyStart Date End Date No Pcp, [place] [address] PCP - GeneralFamily Vsqnnmse96/18/23Team MemberRelationshipSpecialtyStart Date End Date Rajni Steiner DO [address] [place] [address] PCP - GeneralInternal Medicine08/24/23Team MemberRelationshipSpecialtyStart Date End Date Rajni Steiner DO [address] [place] [address] PCP - GeneralInternal Medicine08/24/23Team MemberRelationshipSpecialtyStart Date End Date No Pcp, [place] [address] PCP - GeneralFamily Vncdxbxe16/18/23Team MemberRelationshipSpecialtyStart Date End Date No Pcp, [place] [address] PCP - GeneralFamily Iljivvmf32/18/23Team MemberRelationshipSpecialtyStart Date End Date Rajni Steiner DO [address] [place] [address] PCP - GeneralInternal Medicine08/24/23Team MemberRelationshipSpecialtyStart Date End Date No Pcp, [place] [address] PCP - GeneralFamily Widppqrn01/18/23Team MemberRelationshipSpecialtyStart Date End Date Rajni Steiner DO [address] [place] [address] PCP - GeneralInternal Medicine07/01/23Team MemberRelationshipSpecialtyStart Date End Date Rajni Steiner DO [address] [place] [address] PCP - GeneralInternal Medicine07/01/23Team MemberRelationshipSpecialtyStart Date End Date Rajni Steiner DO [address] [place] [address] PCP - GeneralInternal Medicine08/24/23Team MemberRelationshipSpecialtyStart Date End Date Rajni Steiner DO [address] [place] [address] PCP - GeneralInternal Medicine08/24/23Team MemberRelationshipSpecialtyStart Date End Date Rajni Steiner DO [address] [place] [address] PCP - GeneralInternal Medicine07/01/23Team MemberRelationshipSpecialtyStart Date End Date Rajni Steiner Janae DO [address] [place] [address] PCP - GeneralInternal Medicine07/01/23Team MemberRelationshipSpecialtyStart Date End Date Rajni Steiner DO [address] [place] [address] PCP - GeneralInternal Medicine12/17/23Team MemberRelationshipSpecialtyStart Date End Date Rajni Steiner DO [address] [place] [address] PCP - GeneralInternal Medicine12/17/23Team MemberRelationshipSpecialtyStart Date End Date Rajni Steiner, DO [address] [place] [address] PCP - GeneralInternal Medicine07/01/23Team MemberRelationshipSpecialtyStart Date End Date Rajni Steiner, DO [address] [place] [address] PCP - GeneralInternal Medicine12/17/23Team MemberRelationshipSpecialtyStart Date End Date Rajni Steiner, DO [address] [place] [address] PCP - GeneralInternal Medicine12/17/23Team MemberRelationshipSpecialtyStart Date End Date Rajni Steiner, DO [address] [place] [address] PCP - GeneralInternal Medicine12/17/23Team MemberRelationshipSpecialtyStart Date End Date Rajni Steiner DO [address] [place] [address] PCP - GeneralInternal Medicine12/17/23Team MemberRelationshipSpecialtyStart Date End Date Rajni Steiner DO [address] [place] [address] PCP - GeneralInternal Medicine12/17/23Team MemberRelationshipSpecialtyStart Date End Date Rajni Steiner DO [address] [place] [address] PCP - GeneralInternal Medicine12/17/23Team MemberRelationshipSpecialtyStart Date End Date Rajni Steiner DO [address] [place] [address] PCP - GeneralInternal Medicine12/17/23Team MemberRelationshipSpecialtyStart Date End Date Rajni Steiner, DO [address] [place] [address] PCP - GeneralInternal Medicine12/17/23Team MemberRelationshipSpecialtyStart Date End Date Rajni Steiner, DO [address] [place] [address] PCP - GeneralInternal Medicine12/17/23Team MemberRelationshipSpecialtyStart Date End Date Rajni Steiner MD PCP - GeneralInternal Medicine08/11/23Team MemberRelationshipSpecialtyStart Date End Date Rajni Steiner MD PCP - GeneralInternal Medicine08/11/23Team MemberRelationshipSpecialtyStart Date End Date Rajni Steiner DO [address] [place] [address] PCP - GeneralInternal Medicine12/17/23Team MemberRelationshipSpecialtyStart Date End Date Rajni Steiner DO [address] [place] [address] PCP - GeneralInternal Medicine12/17/23Team MemberRelationshipSpecialtyStart Date End Date Rajni Steiner DO [address] [place] [address] PCP - GeneralInternal Medicine12/17/23Team MemberRelationshipSpecialtyStart Date End Date Rajni Steiner DO [address] [place] [address] PCP - GeneralInternal Medicine12/17/23Team MemberRelationshipSpecialtyStart Date End Date Rajni Steiner DO [address] [place] [address] PCP - GeneralInternal Medicine12/17/23Team MemberRelationshipSpecialtyStart Date End Date Rajni Steiner DO [address] [place] [address] PCP - GeneralInternal Medicine12/17/23Team MemberRelationshipSpecialtyStart Date End Date Rajni Steiner MD PCP - GeneralInternal Medicine08/11/23Team MemberRelationshipSpecialtyStart Date End Date Rajni Steiner DO [address] [place] [address] PCP - GeneralInternal Medicine12/17/23Team MemberRelationshipSpecialtyStart Date End Date Rajni Steiner DO [address] [place] [address] PCP - GeneralInternal Medicine12/17/23Team MemberRelationshipSpecialtyStart Date End Date Rajni Steiner DO [address] [place] [address] PCP - GeneralInternal Medicine12/17/23Team MemberRelationshipSpecialtyStart Date End Date Rajni Steiner DO [address] [place] [address] PCP - GeneralInternal Medicine12/17/23Team MemberRelationshipSpecialtyStart Date End Date Rajni Steiner DO [address] [place] [address] PCP - GeneralInternal Medicine12/17/23 Goals (unrecognized section and content) Goals may be documented in a n alternate sectionNo Information REASON FOR VISIT (unrecogniz ed section and content) ReasonCommentsPainReasonCommentsChronic hypoxic respiratory failureConsultation ReasonCommentsFollow-upReasonOnset DateCommentsMed [id number] CommentsMed RefillReasonOnset DateCommentsMed [id number] Date CommentsSleep Lab4Pap OrderReasonCommentscompression fractor and leakage in legsReasonOnset DateCommentsMed [id number] month recheckReasonOnset DateCommentsMed Zncgxh094ReasonCommentsNew Patient ReasonCommentsCoughCongestion,cough yellow, 1 weekReasonCommentsHospital Follow-upCOVID Pneumonia - Early AprilXR: 04/28/2023 and 05/27/2023 ReasonOnset DateCommentsSleep Lab06/25/2023Split NightReasonCommentsFollow-up1 monthReasonCommentsHyperlipidemiaHypertensionReasonCommentsShortness of Breath SpecialtyDiagnoses / ProceduresReferred By ContactReferred To Contact Diagnoses Shortness of breath Hypoxia COPD exacerbation (CMS-HCC) Acute respiratory failure with hypoxia and hypercapnia (CMS-HCC) Rajni Gimenez MD [address] [place] [address], [address] [place] [address] Referral IDStatusReasonStart DateExpiration DateVisits RequestedVisits [id number] / ProceduresReferred By ContactReferred To Contact Diagnoses BONY (obstructive sleep apnea) Hypoxemia associated with sleep Procedures Polysomnography 4 or more parameters [place] [address] [place] [address] Referral IDStatusReasonStart DateExpiration DateVisits RequestedVisits [id number]/19/20244/330728OjtteeUguqdieebbuakdpwwb care SpecialtyDiagnoses / ProceduresReferred By ContactReferred To Contact Diagnoses BONY treated with BiPAP Procedures Split Night Sleep Study Grace Meadows, DO [address] [place] [address] Referral IDStatusReasonStart DateExpiration DateVisits RequestedVisits [id number]wv HyperlipidemiaReasonOnset DateCommentsMed Hleggf574ReasonOnset Date CommentsMed Anlvdf104ReasonCommentsMed Change RequestReasonComments Follow-upEST PT F/U 4 MS L/S RDGReasonCommentsCOPDReasonCommentsControlled SubstanceReasonOnset DateCommentsMed Exnpkv2807/15/2024ReasonCommentsFollow-upEST PT F/U 6 MS L/S TMPReasonCommentsSleep Apnea6 [...] RN - Reason: Medication not available) * 2140 (Given - Provider: Mary Cee RN) ARIPiprazole [...] * 1832 (Stop Bag - Provider: Vicki Golden, VICTOR M) clonazePAM (KlonoPIN) tablet 0.5 mg 0.5 mg, [...] irritation and ulceration., Indication: Community-acquired pneumonia * 2201 (Given - Provider: Lissette Mathews RN) * 0914 (Given - Provider: Gale Chiang RN) * 2140 (Given - Provider: Mary Cee RN) * 0825 (Given - Provider: Gale Chiang, VICTOR M) empagliflozin (JARDIANCE) tablet 10 mg 10 mg, oral, Daily, First dose on 07/26/23 at 0900 * 0915 (Given - Provider: Gale Chiang RN) * 0826 (Given - Provider: Gale Chiang, [...] use. IVP rate = 20 mg/min * 215 (Given - Provider: Lissette Mathews RN) gabapentin (NEURONTIN) capsule 200 mg 200 mg, oral, 3 times daily, First dose on 07/25/23 at 2200, Look-alike/sound-alike medication -verify indication for use. * 215 (Given - Provider: Lissette Mathews RN) * 0610 (Given - Provider: Lissette Mathews RN) * 1327 (Given - Provider: Gale Chiang, VICTOR M) * 2140 (Given - Provider: Mary Cee, VICTOR M) * 0604 (Given - Provider: Mary Cee RN) * 1320 (Given - Provider: Gale Chiang RN) ipratropium-albuteroL (DUONEB) 0.5 mg-3 mg(2.5 mg base)/3 mL nebulizer solution 3 mL (COMPLETED) 3 mL, nebulization, Once, On 07/25/23 at 1710, For 1 dose, Implement INPATIENT/ED BronchodilatorClinical Practice Guidelines? Yes, Document: \[email or web address]\epic\EPIC_Reference\Orders\Respiratory Care Guidelines\CPG Bronchodilator 2020.pdf * 1731 (Given [...] Document: \[email or web address]\epic\EPIC_Reference\Orders\Respiratory Care Guidelines\CPG Bronchodilator 2020.pdf * 2114 (Not [...] use. * 0915 (Given - Provider: Gale Chiang, VICTOR M) * 0826 (Given - Provider: Gale Chiang, VICTOR M) methylPREDNISolone sod suc(PF) (Solu-MEDROL) injection 40 mg (CANCELED) 40 mg, intravenous, Every 12 hours scheduled, First dose on 07/25/23 at 2115, May alter blood glucose or insulin requirements. Look-alike/sound-alike medication - verify indication for use. * 2156 (Given - Provider: Lissette Mathews RN) * 0811 (Given - Provider: Gale Chiang, VICTOR M) * 2140 (Given - Provider: Mary Cee, VICTOR M) * 0819 (Given - Provider: Gale Chiang, VICTOR [...] RN) * 0816 (Given - Provider: Gale Chiang RN) * 214 (Given - Provider: Mary Cee RN) * 0824 (Given - Provider: Gale Chiang, VICTOR M) spironolactone (ALDACTONE) tablet 25 mg 25 mg, oral, Daily, First dose on 07/26/23 at 0900 * 0814 (Given - Provider: Gale Chiang [...] RN) * 0746 (Given - Provider: Gale Chiang, VICTOR M) Medication Order07/24///04/2023 acetaminophen (TYLENOL) tablet 650 mg 650 mg, oral, Every 4 hours PRN, headaches, moderate pain - pain scale 4-6, Starting on 07/25/23at 2100 * 0847 (Given - Provider: Gale Chiang, VICTOR M) * 214 (Given - Provider: Mary Cee, VICTOR M) * 0604 (Given - Provider: Mary Cee [...] BE BASED ON THE PRIMARY CLINICAL RECORDS. [facility] [employer] provides no warranty or guarantee of the accuracy or completeness of information in this document.
--- NOTE | 2025-03-15 15:03 | PM.CN ---
Consult Note: HPI Data of Consult Patient: known to practice within the last 3 years Consult date: 03/15/25 Requesting Physician: Harper Alvarez NP Primary Care Provider: RAJNI CARDOZO Consult Narrative Reason for consult: left shoulder pain Narrative: Monet Recinos a pleasant 64 year old female with left shoulder pain > 3 years unresponsive to > 6 weeks of PT/HEP, heat, ice, tylenol, nsaids presents for evaluation of left shoulder pain. notes prior left shoulder injection provided moderate relief for 1 month. at this time pain 7/10 aching in left shoulder, increasing with housework, lifting, utilizing the left arm, pushing, pulling, activity. notes improvement in pain with ice, sleep, and sitting. no recent injury/falls. previously deemed nonsurgical by orthopedics in 2021. cc:: CC: Harper Alvarez NP Review of Systems ROS Musculoskeletal Reports: joint pain PFSH [facility] Medical History Rheumatoid arthritis ?M06.9 - Rheumatoid arthritis, unspecified (ICD-10) Anemia ?D64.9 - Anemia, unspecified (ICD-10) Panic disorder ?F41.0 - Panic disorder [episodic paroxysmal anxiety] (ICD-10) PTSD (post-traumatic stress disorder) ?F43.10 - Post-traumatic stress disorder, unspecified (ICD-10) Bipolar 1 disorder ?F31.9 - Bipolar disorder, unspecified (ICD-10) Anxiety ?F41.9 - Anxiety disorder, unspecified (ICD-10) Acid reflux ?K21.9 - Gastro-esophageal reflux disease without esophagitis (ICD-10) BONY treated with BiPAP ?G47.33 - Obstructive sleep apnea (adult) (pediatric) (ICD-10) Sleep apnea ?G47.30 - Sleep apnea, unspecified (ICD-10) COPD (chronic obstructive pulmonary disease) ?J44.9 - Chronic obstructive pulmonary disease, unspecified (ICD-10) CHF (congestive heart failure) ?I50.9 - Heart failure, unspecified (ICD-10) Angina at rest ?I20.89 - Other forms of angina pectoris (ICD-10) Heart attack ?I21.9 - Acute myocardial infarction, unspecified (ICD-10) Surgical History Stented coronary artery ?Z95.5 - Presence of coronary angioplasty implant and graft (ICD-10) Hx of cholecystectomy ?Z90.49 - Acquired absence of other specified parts of digestive tract (ICD-10) H/O section ?Z98.891 - History of uterine scar from previous surgery (ICD-10) Hx of CABG ?Z95.1 - Presence of aortocoronary bypass graft (ICD-10) Meds Home Medications and Allergies Home Medications ?Medication ?Instructions ?Recorded ?Confirmed ?Type clonazepam 0.5 mg tablet 1 mg PO DAILY 02/23/24 02/13/25 History empagliflozin 10 mg tablet 10 mg PO DAILY 02/23/24 02/13/25 History (Jardiance) topiramate 100 mg tablet (Topamax) 100 mg PO BID 02/23/24 02/13/25 History torsemide 40 mg tablet 160 mg PO DAILY 02/23/24 02/13/25 History albuterol sulfate 90 mcg/actuation 1 puff inhalation Q4H PRN 02/24/24 02/13/25 History aerosol inhaler shortness of breath or wheezing aripiprazole 15 mg tablet 15 mg PO BEDTIME 02/24/24 02/13/25 History budesonide 160 mcg-glycopyr 9 2 inh inhalation BID 02/24/24 02/13/25 History mcg-formot 4.8 mcg/actuation HFA inhaler (Breztri Aerosphere) lamotrigine 150 mg tablet 150 mg PO DAILY 02/24/24 02/13/25 History pantoprazole 40 mg tablet,delayed 40 mg PO DAILY 02/24/24 02/13/25 History release potassium chloride 20 mEq 20 meq PO DAILY 02/24/24 02/23/25 History tablet,extended release spironolactone 25 mg tablet 25 mg PO DAILY 02/24/24 02/13/25 History hydroxyzine HCl 25 mg tablet mg 11/14/24 History gabapentin 300 mg capsule 300 mg PO TID #90 caps 02/23/25 Rx vortioxetine 10 mg tablet 10 mg PO DAILY 02/23/25 02/23/25 History (Trintellix) Allergies Allergy/AdvReac Type Severity Reaction Status Date / Time Penicillins Allergy Unknown Unknown Verified 02/13/25 11:16 Exam Constitutional Documenting provider has reviewed patient's vital signs: yes Common normals: no apparent distress, oriented x3 and alert General appearance: cooperative HENMT Common normals: normocephalic, hearing grossly normal bilaterally and moist oral mucous membranes Head and scalp: normocephalic Eye Common normals: PERRL Pupil: PERRL Neck & C-Spine Common normals: full ROM General: normal visual inspection Chest Common normals: inspection of chest normal Respiratory Common normals: normal respiratory effort, no retractions and no use of accessory muscles Extremity Left upper extremity: shoulder joint Other: positive crossbody adduction, posterior liftoff, apleys scratch test, empty can. strength 5/5 in BUE. sensation intact BUE. no edema. full rom with extension and rotation, although moderately painful Neuro Common normals: oriented x3 Sensorium/orientation: alert Psych Common normals: mental status grossly normal, thought process normal, cooperative, affect normal, speech normal and activity/motor behavior normal Speech: normal speech Thought process: normal thought process Results Additional Findings Additional findings: If on a controlled substance or opioids, I have checked an [place]AR[place] report on this patient and there are no aberrancies noted in the prescribing history.??If on a controlled substance or opioid a drug screen was completed and reviewed within the last year, and if there has not been a drug screen completed we ordered one today to monitor higher risk, state monitored pain medication use. As part of providing excellent, safe, comprehensive care, the following was completed at our patient's visit: 1. A medication reconciliation and review to ensure accurate knowledge of current/active medications, including asking our patients to inform us about any [id number] medications or herbal remedies/nutritional supplements/alternative remedies. 2. A review to specifically ensure our patients have had annual screening for screening for depression, screening for tobacco use, and screening for unhealthy alcohol use. For concerning screenings had a discussion with the patient, provided patient education, and recommended follow-up with primary care provider when appropriate. If patient noted with a risk of falling, they received education on strength, gait, and balance training to prevent future risk of falling. Portions of this note may have been carried over from the previous visit and updated as appropriate. Please note this office utilizes paper charting in addition to the electronic medical record. A list of current medications, vitals, and PMH is available there as the clinical staff outside of myself do not have access to [employer] charting during the clinic day operations. As part of providing quality comprehensive care the current medications, vitals, and PMH were reviewed in the paper chart. Assessment and Plan Assessment and Plan (1) Chronic left shoulder pain: (2) Osteoarthritis of left shoulder: Qualifiers: Osteoarthritis type: primary Qualified Code(s): M19.012 - Primary osteoarthritis, left shoulder Plan The patient has had over 3 months of moderate to severe left shoulder pain with functional impairment and inadequate response to conservative care including NSAIDS (unless there are contraindication such as concurrent blood thinners), multiple oral or topical pain medications, and home exercise program/physical therapy.? Patient has completed >6 weeks of guided home exercise program and/or formal physical therapy program without relief of their symptoms.? I have reviewed the imaging of the left shoulder and no red flags were identified.? The imaging reveals radiographic findings consistent with OA The Oswestry Disability Index was completed, and the patient scored a 24%.? left suprascapular/axillary nerve block in consideration of RFA for left shoulder pain/OA unresponsive to conservative therapy and steroidal injections f/u after injection
== END 2025-03-15 14:32 | disposition home or self-care (01) ==
LOC: PM 14:32
PROVIDERS: PCP Internal Medicine; Visit Provider Nurse Practitioner
DX: M25.512 Pain in left shoulder (principal); G89.29 Other chronic pain; M19.012 Primary osteoarthritis, left shoulder
CPT/HCPCS: G0463

== ENCOUNTER 2025-03-17 14:50 | Emergency (ER) | payer MEDICARE, MEDICAID, SELFPAY ==
--- OUTSIDE RECORDS SUMMARY | 2025-03-08 15:15 | XMS_ITS | Encounter Summary ---
Author Organization [facility] Address [address] [place] [address] Care Team Providers Care Managed Care Manager Name Role Phone Michael Steiner MD Primary Care Provider [phone] Reason for Visit * ReasonCommentsCOPD6 month follow upSleep Apnea6 month follow up Encounter Details DateTypeDepartmentCare Team (Latest Contact Info)Vcwspmlrpad89/12/2025 3:15 PM ESTOffice Visit [facility] [address] [place] [address] Sydnie Guerrero, DO [address] [facility] [place] [address] Chronic obstructive pulmonary disease, unspecified COPD type (HCC) (Primary Dx); Chronic respiratory failure with hypoxia and hypercapnia (HCC); BONY (obstructive sleep apnea) Social History Tobacco UseTypesPacks/DayYears UsedDateSmoking Tobacco: FormerCigarettesQuit: mokeless Tobacco: FormerAlcohol UseStandard Drinks/WeekCommentsNot Currently0 (1 standard drink = 0.6 oz pure alcohol)CommentsUnknownSex and Gender InformationValueDate RecordedSex Assigned at BirthNot on fileLegal DhcNvipxf74/15/2023 11:01 PM EDTGender IdentityNot on fileSexual OrientationNot on filedocumented as of this encounter Last Filed Vital Signs Vital SignReadingTime TakenCommentsBlood Roveqfhm830/7203/08/2025 3:19 PM EST Hxfaw321603/08/2025 3:19 PM ESTTemperature--Respiratory Rate--Oxygen Hevfeetffy81% 03/08/2025 3:19 PM ESTInhaled Oxygen Concentration--Coeckw371 kg (244 lb) 03/08/2025 3:19 PM HJVRegauy471.3 cm (5' 9 )03/08/2025 3:19 PM ESTBody Mass Index36.03105/08/2024 3:19 PM ESTdocumented in this encounter Progress Notes * Sydnie Guerrero, DO - 03/08/2025 3:15 PM EST Images from the original note were not included. Monet Recinos presents today for follow up on COPD and sleep apnea. She is accompanied by her friend at today's office visit. She does continue with Breztri twice daily. She does have albuterol, but states she uses this on average less than once per week. She denies any ER visits or exacerbationsof her breathing since her last office visit. She denies any current complaints of chest pain, palpitations, fevers, chills, sweats, or recent unintentional weight changes. She had previously been onBiPAP. She had previously been very compliant with use of the machine. However she states that it has been malfunctioning recently. She had they have reached out to the DME company, however have not had any assistance in obtaining a new machine or having her current 1 evaluated. She states that they were told they could bring the machine to [place], however this is not feasible. She has noted thather oxygen saturations at dipped into the 80s when she uses the machine and therefore stopped usingthis recently. She is interested in changing DME companies given that she is not having good luck with her current company. Her initial sleep study was in July 2023. She had a titration study in November 2023 and has been using machine since that time regularly up until recently when she has had difficulty with the machine functioning properly. She denies any other complaints at this time. Allergies: Allergies[1] Medications: Current Medications[2] Past Medical History: Medical History[3] Social History: Social History Tobacco Use Smoking status: Former Current packs/day: 0.00 Types: Cigarettes Quit date: 2021 Years since quittin.8 Smokeless tobacco: Former Substance Use Topics Alcohol use: Not Currently Vitals: BP 124/72 (BP Location: Left arm, Patient Position: Sitting) Pulse 72 Ht 5' 9 Wt 244 lb SpO2 95% BMI 36.03 kg/m?? Exam: Heart: regular rate Lungs: clear to auscultation bilaterally, no wheezes/rales/rhonchi, no resp distress Extremities: no edema noted, no visible rashes Neuro: alert, oriented x3 Imaging Reviewed: None Assessment/Plan: Diagnoses and all orders for this visit: Chronic obstructive pulmonary disease, unspecified COPD type (HCC) - Tglsgup-Lffutdrbgvf-Halaotdqqp (Breztri Aerosphere) 160-9-4.8 MCG/ACT aerosol; Inhale 2 puffs in the morning and 2 puffs before bedtime. Chronic respiratory failure with hypoxia and hypercapnia (HCC) BONY (obstructive sleep apnea) COPD -- she does continue with Breztri twice daily. She states overall her breathing has been stable. She did request refill on her Breztri. This was sent to the pharmacy for after today's office visit. She will continue with this and albuterol on an as needed basis. She will follow here in 3 months time unless needed before then. BONY -- she does have a known history of sleep apnea as well as chronic hypoxic respiratory failure.She does continue with regular use of her oxygen. She had been using her BiPAP very regularly, however has not been using this recently given that the machine has been malfunctioning. She has reachedout to her current DME company with no improvement or meaningful response. At this time she is interested in changing DME companies altogether. A new prescription for BiPAP will be sent to the new DME company. I will try to obtain the sleep study results from her study in July as well as in November2023 that were done at [facility]. In the meantime she will continue with regular use of her oxygen, which she has been doing. She had previously been very compliant with her BiPAP machine and had benefitted from its use. She does understand the importance of using the machine and does need 1 that functions well for her. I will see her back in 3 months' time. This should be within the 30-90 day window for her new BiPAP machine with her new DME company. Follow up in about 3 months (around 06/08/2025) for COPD, BONY. Sydnie Guerrero DO [1] Allergies Allergen Reactions Penicillins Anaphylaxis Swelling of Lip/Tongue/Throat Other Reaction(s): Swelling of Lip/Tongue/Throat Fentanyl Other Reaction(s): Other (See Comments) Terrible dreams Morphine Hallucinations Other Reaction(s): Other (See Comments) I hallucinate This is not a true allergy [2] Current Outpatient Medications: acetaminophen (Tylenol) 325 MG tablet, Take 325 mg by mouth every 4 (four) hours if needed for mildpain, Disp: , Rfl: albuterol 0.63 MG/3ML nebulizer solution, Take 0.63 mg by nebulization every 6 (six) hours if needed for wheezing, Disp: , Rfl: albuterol HFA 90 mcg/act inhaler, Inhale 2 puffs every 4 (four) hours if needed for wheezing, Disp:18 g, Rfl: 5 ARIPiprazole (Abilify) 15 MG tablet, Take 15 mg by mouth at bedtime, Disp: , Rfl: aspirin 81 MG EC tablet, Take 81 mg by mouth Daily, Disp: , Rfl: atorvastatin (Lipitor) 80 MG tablet, Take 80 mg by mouth Daily, Disp: , Rfl: calcitonin, salmon, (Miacalcin) 200 UNIT/ACT nasal spray, Administer 1 spray into affected nostril(s) in the morning., Disp: , Rfl: cholecalciferol (Vitamin D-3) 125 MCG (5000 UT) capsule, Take 5,000 Units by mouth Daily, Disp: , Rfl: clonazePAM (KlonoPIN) 0.5 MG tablet, Take 0.5 mg by mouth in the morning and 0.5 mg before bedtime., Disp: , Rfl: cyanocobalamin (Vitamin B-12) 1000 MCG tablet, , Disp: , Rfl: diclofenac sodium (Voltaren) 1 % gel, Apply 2 g topically in the morning and 2 g in the evening and2 g before bedtime., Disp: , Rfl: diclofenac-miSOPROStol (Arthrotec 50) 50-0.2 MG EC tablet, TAKE 1 TABLET BY MOUTH IN THE MORNING AND BEFORE BEDTIME, Disp: , Rfl: doxepin (SINEquan) 75 MG capsule, Take 75 mg by mouth at bedtime, Disp: , Rfl: empagliflozin (Jardiance) 10 MG, Take by mouth, Disp: , Rfl: ezetimibe (Zetia) 10 MG tablet, Take 10 mg by mouth in the morning., Disp: , Rfl: ferrous sulfate 325 (65 Fe) MG tablet, , Disp: , Rfl: gabapentin (Neurontin) 300 MG capsule, Take 300 mg by mouth in the morning and 300 mg in the evening and 300 mg before bedtime., Disp: , Rfl: guaiFENesin (Mucinex) 600 MG 12 hr tablet, Take 600 mg by mouth in the morning and 600 mg in the evening., Disp: , Rfl: hydrOXYzine HCl (Atarax) 25 MG tablet, Take 25 mg by mouth Daily, Disp: , Rfl: lamoTRIgine (LaMICtal) 150 MG tablet, Take 1 tablet by mouth Daily, Disp: , Rfl: methocarbamol (Robaxin) 750 MG tablet, TAKE 1 TABLET BY MOUTH EVERY 12 HOURS FOR 30 DAYS for 30, Disp: , Rfl: metoprolol succinate XL (Toprol-XL) 25 MG 24 hr tablet, Take 25 mg by mouth at bedtime, Disp: , Rfl: ondansetron ODT (Zofran-ODT) 4 MG disintegrating tablet, DISSOLVE 1 TABLET (4 MG TOTAL) ON THE TONGUE EVERY 8 HOURS NEEDED FOR NAUSEA FOR UP TO 10 DOSES, Disp: , Rfl: pantoprazole (ProtoNix) 40 MG EC tablet, Take 40 mg by mouth in the morning. Take before meals. Do not crush, chew, or split., Disp: , Rfl: potassium chloride CR (K-Tab) 20 MEQ ER tablet, TAKE 1 TABLET (20 MEQ TOTAL) BY MOUTH IN THE MORNING, Disp: , Rfl: propranolol (Inderal) 40 MG tablet, TAKE 1 TABLET (40 MG TOTAL) BY MOUTH IN THE MORNING AND BEFORE BEDTIME, Disp: , Rfl: propranolol XL (Innopran XL) 80 MG 24 hr capsule, Take 80 mg by mouth at bedtime Do not crush, chew, or split., Disp: , Rfl: spironolactone (Aldactone) 25 MG tablet, Take 25 mg by mouth Daily, Disp: , Rfl: torsemide (Demadex) 20 MG tablet, Take 20 mg by mouth Daily (Patient taking differently: Take 20 mgby mouth Daily 3 tablets in the morning, 1 tablet in the afternoon), Disp: , Rfl: Trintellix 10 MG tablet, Take 1 tablet by mouth Daily, Disp: , Rfl: valsartan (Diovan) 40 MG tablet, Take 40 mg by mouth in the morning., Disp: , Rfl: Jkqfmkl-Bkgkbuuxypr-Elakhmjzfv (Breztri Aerosphere) 160-9-4.8 MCG/ACT aerosol, Inhale 2 puffs in the morning and 2 puffs before bedtime., Disp: 10.7 g, Rfl: 5 celecoxib (CeleBREX) 200 MG capsule, , Disp: , Rfl: cyclobenzaprine (Flexeril) 10 MG tablet, Take 5 mg by mouth as needed in the morning and 5 mg as needed at noon and 5 mg as needed in the evening for muscle spasms. (Patient not taking: Reported on 03/08/2025), Disp: , Rfl: COL-Dpfl-CeDylg-MgHydr-Simeth (First-Mouthwash BLM) suspension, Take 5 mL by mouth 4 (four) times aday as needed (Patient not taking: Reported on 03/08/2025), Disp: , Rfl: furosemide (Lasix) 40 MG tablet, Take 40 mg by mouth Daily (Patient not taking: Reported on 03/08/2025), Disp: , Rfl: potassium chloride CR (Klor-Con M20) 20 MEQ ER tablet, Take 20 mEq by mouth Daily Do not crush or chew. (Patient not taking: Reported on 03/08/2025), Disp: , Rfl: pregabalin (Lyrica) 100 MG capsule, Take 100 mg by mouth in the morning and 100 mg in the evening. (Patient not taking: Reported on 03/08/2025), Disp: , Rfl: SUMAtriptan (Imitrex) 25 MG tablet, Take 25 mg by mouth 1 (one) time if needed for migraine May repeat dose once in 2 hours if no relief. Do not exceed 2 doses in 24 hours. (Patient not taking: Reported on 03/08/2025), Disp: , Rfl: topiramate (Topamax) 100 MG tablet, TAKE 1 TABLET (100 MG TOTAL) BY MOUTH IN THE MORNING AND AT BEDTIME FOR 90 DAYS. (Patient not taking: Reported on 03/08/2025), Disp: , Rfl: venlafaxine XR (Effexor XR) 150 MG 24 hr capsule, Take 150 mg by mouth Daily Do not crush or chew. (Patient not taking: Reported on 03/08/2025), Disp: , Rfl: venlafaxine XR (Effexor XR) 75 MG 24 hr capsule, Take 75 mg by mouth Daily Do not crush or chew. (Patient not taking: Reported on 03/08/2025), Disp: , Rfl: [3] Past Medical History: Diagnosis Date Acute on chronic respiratory failure with hypoxia and hypercapnia (HCC) 12/04/2024 Agoraphobia Angina at rest Anxiety Arthritis of left sacroiliac joint 07/07/2024 Atherosclerosis of [place] coronary artery of [place] heart without angina pectoris 07/30/2020 Atherosclerotic heart disease of [place] coronary artery with other forms of angina pectoris 03/08/2025 Noted by JULIANE Cardoso DO last documented on [id number] BiPAP (biphasic positive airway pressure) dependence Bipolar disorder (HCC) Breast injury CAD (coronary artery disease) Cervical disc disorder Chronic kidney disease Chronic kidney disease, stage 3a ([facility]) 03/08/2025 Noted by JULIANE Cardoso DO last documented on [id number] Chronic obstructive pulmonary disease with acute exacerbation ([facility]) 03/08/2025 Noted by [facility] last documented on [id number] Cigarette nicotine dependence in remission 10/16/2020 Congestive heart failure (CHF) ([facility]) COPD (chronic obstructive pulmonary disease) ([facility]) COVID-19 04/29/2023 Dementia ([facility]) Dependence on other enabling machines and devices 04/29/2023 Depression Difficulty in walking, not elsewhere classified 04/28/2023 Esophageal ulcer 01/04/2025 Former smoker 09/26/2022 GERD (gastroesophageal reflux disease) Hiatal hernia 01/04/2025 History of four vessel coronary artery bypass graft 11/28/2024 Hyperlipidemia 04/29/2023 Liver disease Lumbosacral disc disease Memory loss Microcytic anemia 12/17/2024 Myocardial infarction (HCC) Nicotine dependence 04/29/2023 Nonrheumatic tricuspid valve regurgitation 11/28/2024 Obesity with body mass index 30 or greater 05/14/2023 BONY (obstructive sleep apnea) Osteoarthritis Panic disorder Personal history of nicotine dependence 04/29/2023 Pneumonia, unspecified organism 04/29/2023 Polyneuropathy, unspecified 04/29/2023 Presence of aortocoronary bypass graft 04/29/2023 Psoriasis Psoriasis, unspecified 05/02/2023 PTSD (post-traumatic stress disorder) Pulmonary hypertension (HCC) 11/28/2024 Shortness of breath Solitary pulmonary nodule 04/29/2023 Stage 3a chronic kidney disease (CMS-HCC) 07/07/2024 Thoracic disc disease Unspecified dementia, mild, without behavioral disturbance, psychotic disturbance, mood disturbance, and anxiety (HCC) 04/30/2023 Unspecified dementia, unspecified severity, with mood disturbance (HCC) 03/08/2025 Noted by [facility] last documented on [id number] Ventricular tachycardia (HCC) 09/20/2024 Documented on 08/23/2020 Visual impairment Weakness 05/28/2023 documented in this encounter Plan of Treatment DateTypeDepartmentCare Team (Latest Contact Info)Rgszajjolti53/04/2026 3:30 PM ESTOffice Visit [facility] [address] [place] [address] Sydnie Guerrero DO [address] [place] [address] documented as of this encounter Visit Diagnoses Diagnosis Chronic obstructive pulmonary disease, unspecified COPD type (HCC)- Primary Chronic respiratory failure with hypoxia and hypercapnia (HCC) BONY (obstructive sleep apnea) Obstructive sleep apnea (adult) (pediatric) documented in this encounter Care Teams Team MemberRelationshipSpecialtyStart DateEnd Date Michael Steiner MD [facility] [place] [address] PCP - GeneralInternal Medicine08/11/23documented as of this encounter
--- OUTSIDE RECORDS SUMMARY | 2025-03-15 13:30 | XMS_ITS | Encounter Summary ---
Author Organization [facility] cWyze s tem Address [id number] [place] [address] Care Team Providers Care Budget And Policy Analyst Name Role Phone Michael Steiner DO Primary Care Provider [phone] Reason for Visit * ReasonCommentsTCM Encounter Details DateTypeDepartmentCare Team (Latest Contact Info)Iseeywbinry40/19/2025 1:30 PM ESTOffice Visit [facility] Medicine [address] [place] [phone] Michael Steiner DO [address] [place] [address] Ulcer of esophagus with bleeding (Primary Dx); Gastro-esophageal reflux disease without esophagitis; Hiatal hernia with GERD; Spinal stenosis of lumbar region with neurogenic claudication Social History Tobacco UseTypesPacks/DayYears UsedDateSmoking Tobacco: JrhrmtSlwcqaazou637 09/1981 - mokeless Tobacco: Never Comments:5-6 cigerettes a da y Alcohol UseStandard Drinks/WeekCommentsNot Currently0 (1 standard drink = 0.6 oz pure alcohol)last use 15 years agoAHC UtilitiesAnswerDate RecordedIn the past 12 months has the electric, gas, oil, or water [employer] threatened to shut off services in your home?No12/04/2024Social Connection and Isolation PanelAnswer Date RecordedIn a typical week, how many times do you talk on the phone with family, friends, or neighbors?Three times a week07/25/2023How often do you get together with friends or relatives?Three times a week07/25/2023How often do you attend evangelical or hinduism services?More than 4 times per year07/25/2023o you belong to any clubs or organizations such as evangelical groups, unions, fraternal [...] have six or more drinks on one occasion?Never07/25/2023HQ-2AnswerDate RecordedTotal Mecsh96505/15/2024Fin[facility] [place] of Occupational Health - Occupational Stress QuestionnaireAnswerDate RecordedDo you feel stress - tense, restless, nervous, or anxious, or unable to sleep at night because yourmind is troubled all the time - these days?Only a pnkwpc8707/25/2023Exercise Vital Sign AnswerDate RecordedOn average, how many days per week do you engage in moderate to strenuous exercise (like a brisk walk)?0 days07/25/2023On average, how many minutes do you engage in exercise at this level?0 min07/25/2023Overall Financial Resource Strain (CARDIA)AnswerDate RecordedHow hard is it for you to pay for the very basics like food, housing, medical care, and heating?Hard03/14/2025PRAPARE - TransportationAnswerDate RecordedIn the past 12 months, has lack of transportation kept you from medical appointments or from getting medications?No 03/14/2025In the past 12 months, has lack of transportation kept you from meetings, work, or from getting things needed for daily living?No03/14/2025 Housing InstabilityAnswerDate RecordedAre you worried or concerned that in the next two months you may not have stable housing that you own, rent or stay in as a part of a household?No03/14/2025hildcareAnswerDate RecordedDo problems getting child protective services social 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 work or study?No12/04/2024 EmploymentAnswerDate RecordedDo you need help finding a local career center and/or a training program?No12/04/2024Hunger ScreeningAnswerDate RecordedWithin the past 12 months we worried whether our food would run out before we got money to buy more.Patient Djdkulmu81/19/2025Within the past 12 months the food we bought just didn't last and we didn't have money to get more.Patient Declined 03/15/2025Purpose - LifeAnswerDate RecordedI have a purpose and direction in my life.Strongly Agree07/25/2023CommentsNoSex and Gender InformationValue Date RecordedSex Assigned at OjwhcQuvkdz90/10/2021 8:51 AM EDTLegal SexFemale 02/16/2017 2:26 PM EDTGender CxlbrlzqYygyfb72/10/2021 8:51 AM EDTSexual EuknnrprjeeXdytjzsp09/02/2023 8:29 PM ESTdocumented as of this encounter Last Filed Vital Signs Vital SignReadingTime TakenCommentsBlood Jddzbnej853/6403/15/2025 1:44 PM EST Iwflv596603/15/2025 1:44 PM OEYAaeetkoshjp28.9 ??C (98.5 ??F)03/15/2025 1:44 PM ESTRespiratory Iirl260505/15/2024 1:44 PM ESTOxygen Qbapxipdss60%03/15/2025 1:44 PM ESTInhaled Oxygen Concentration--Hwnnjr166.7 kg (237 lb 6.4 oz)03/15/2025 1:44 PM WELWkhjnr596.3 cm (5' 9.02 )03/15/2025 1:44 PM ESTBody Mass Index35.04 03/15/2025 1:44 PM ESTdocumented in this encounter Progress Notes * Michael Steiner DO - 03/15/2025 1:30 PM EST IM PROGRESS NOTE Patient - Monet Dhillon Cool Age - 64 [facility] 1960 [id number] ASSESSMENT & PLAN 1. Ulcer of esophagus with bleeding (Primary) -the results of her EGD and biopsies with the patient and POA . No infection or Barretts noted. -continue on pantoprazole 40 mg daily for several more months -at that time, we may try weaning off 2. Gastro-esophageal reflux disease without esophagitis -still with intermittent symptoms usually related to dietary indiscretions -encouraged her to continue using the wedge pillow and follow anti reflux precautions -if symptoms persist may need to switch from pantoprazole to Voquezna 3. Hiatal hernia with GERD -longstanding problem -treatment as noted above for reflux -if symptoms are not able to be controlled will need to be evaluated for Martha fundoplication 4. Spinal stenosis of lumbar region with neurogenic claudication -continue follow-up with pain clinic -refill on lidocaine cream for pain relief - lidocaine (LMX) 4 % cream; Apply 1 Application topically as needed for pain. Dispense: 28 g; Refill: 3 Subjective 64-year-old female presents for recheck visit on her nausea, vomiting and heartburn. At last visit,was scheduled for an EGD, which was performed and showed esophageal ulcers as well as a large hiatal hernia. She was advised to stop all NSAIDs, avoid prednisone, given an anti reflux diet and started on pantoprazole 40 mg daily -her nausea and vomiting has resolved. -she is using a wedge pillow then following anti reflux diet. -still gets heartburn about 3-4 days a week, generally at nighttime and uses Mylanta. She can relate this to lapses in dietary compliance. -has been to pain management and receiving injections, and has not had to use any NSAIDs. However is using lidocaine cream to help with relief. A review of systems was negative except for the following: General: weight gain Respiratory: Has had no flare-ups requiring ED or urgent care visits. Is using her CPAP and oxygen most of the time. She says she is not smoking.. Exam BP 110/64 (BP Site: Left Arm, BP Postition: Sitting, BP CUFF SIZE: L (13-17 inches)) Pulse 83 Temp 36.9 ??C (98.5 ??F) (Tympanic) Resp 18 Ht 175.3 cm (5' 9.02 ) Wt 107.7 kg (237 lb 6.4 oz) SpO2 93% BMI 35.04 kg/m?? Physical Exam Vitals reviewed. Exam conducted with a faculty neuropsychologist present (Friend/POA). Constitutional: General: She is not [...] rales. Abdominal: Palpations: Abdomen is soft. Musculoskeletal: Right lower leg: No edema (1+ to the knee). Left lower leg: No edema (1+ to the knee). Lymphadenopathy: Cervical: No cervical adenopathy. Skin: General: Skin is warm and dry. Coloration: Skin is not jaundiced. Findings: No bruising. Comments: No open areas on the lower extremities. No discoloration today. Neurological: Mental Status: She is alert [...] , Rfl: ARIPiprazole (ABILIFY) 15 mg tablet, Take 1 tablet (15 mg total) by mouth nightly., Disp: , Rfl: atorvastatin (LIPITOR) 80 mg tablet, Take 1 tablet (80 mg total) by mouth in the morning., Disp: 90tablet, Rfl: 3 rowamqgxee-qvabfibw-uravlegbqw (BREZTRI AEROSPHERE) 160-9-4.8 mcg/actuation HFA aerosol inhaler, Inhale 2 puffs in the morning and 2 puffs before bedtime., Disp: 10.7 g, Rfl: 10 cholecalciferol, vitamin D3, 5,000 units tablet, Take 2 tablets (10,000 Units total) by mouth in the morning., Disp: , Rfl: clonazePAM (KlonoPIN) 0.5 mg tablet, Take 1 tablet (0.5 mg total) by mouth in the morning and 1 tablet (0.5 mg total) before bedtime., Disp: , Rfl: cyanocobalamin 1000 MCG tablet, Take 1 tablet (1,000 mcg total) by mouth in the morning., Disp: , Rfl: ezetimibe (ZETIA) 10 mg tablet, TAKE 1 TABLET (10 MG TOTAL) BY MOUTH IN THE MORNING, Disp: 90 tablet, Rfl: 1 hydrOXYzine (ATARAX) 25 mg tablet, Take 1 tablet (25 mg total) by mouth 2 (two) times a day as needed for anxiety., Disp: , Rfl: JARDIANCE 10 mg tablet tablet, TAKE 1 TABLET (10 MG) BY MOUTH IN THE MORNING, Disp: 90 tablet, Rfl:1 lamoTRIgine (LaMICtal) 150 mg tablet, Take 1 tablet (150 mg total) by mouth in the morning., Disp: , Rfl: metoprolol succinate XL (TOPROL XL) 25 mg 24 hr tablet, Take 1 tablet (25 mg total) by mouth nightly., Disp: 30 tablet, Rfl: 11 ondansetron ODT (ZOFRAN ODT) 4 mg disintegrating tablet, Dissolve 1 tablet (4 mg total) on tongue every 8 (eight) hours as needed for nausea for up to 10 doses., Disp: 10 tablet, Rfl: 0 oxygen, Inhale 2 L/min continuously., Disp: , Rfl: pantoprazole (PROTONIX) 40 mg EC tablet, TAKE 1 TABLET BY MOUTH EVERY DAY IN THE MORNING BEFORE BREAKFAST, Disp: 90 tablet, Rfl: 0 potassium chloride (K-TAB,KLOR-CON) 20 mEq CR tablet, Take 1 tablet (20 mEq total) by mouth in the morning., Disp: 30 tablet, Rfl: 11 spironolactone (ALDACTONE) 25 mg tablet, Take 1 tablet (25 mg total) by mouth in the morning., Disp: 90 tablet, Rfl: 3 torsemide (DEMADEX) 20 mg tablet, Take 4 tablets (80 mg total) by mouth daily., Disp: 120 tablet, Rfl: 11 TRINTELLIX 10 mg tablet, Take 1 tablet (10 mg total) by mouth in the morning., Disp: , Rfl: valsartan (DIOVAN) 40 mg tablet, Take 1 tablet (40 mg total) by mouth in the morning., Disp: 30 tablet, Rfl: 11 mimcab-npolaskbb-ffx,al-simeth (FIRST-MOUTHWASH BLM) [id number] mg/30mL mouthwash, Take 5 mL by mouth 4 (four) times a day as needed for mucositis or mouth/gum irritation. (Patient not taking: Reported on 03/15/2025), Disp: 119 mL, Rfl: 1 doxepin (SINEquan) 75 mg capsule, , Disp: , Rfl: guaiFENesin (MUCINEX) 600 mg tablet extended release 12hr, Take 1 tablet (600 mg total) by mouth every 12 (twelve) hours. (Patient not taking: Reported on 03/15/2025), Disp: 14 tablet, Rfl: 0 lidocaine (LMX) 4 % cream, Apply 1 Application topically as needed for pain., Disp: 28 g, Rfl: 3 pregabalin (LYRICA) 100 mg capsule, Take 1 capsule (100 mg total) by mouth before bedtime. (Patientnot taking: Reported on 03/15/2025), Disp: , Rfl: propranoloL (INDERAL) 40 mg tablet, Take 1 tablet (40 mg total) by mouth in the morning and at bedtime. TAKE 1 TABLET (40 MG TOTAL) BY MOUTH IN THE MORNING AND BEFORE BEDTIME (Patient not taking: Reported on 03/15/2025), Disp: , Rfl: No current facility-administered medications for this visit. Facility-Administered Medications Ordered in Other Visits: sodium chloride 0.9 % flush 3 mL, 3 mL, intravenous, PRN, Michael Steiner DO Lab Results Admission on 02/22/2025, Discharged on 02/22/2025 Component Date Value Ref Range Status WBC 02/22/2025 11.4 (H) 4 - 11 x10E9/L Final RBC Count 02/22/2025 5.16 3.8 - 5.2 X10E12/L Final Hemoglobin 02/22/2025 10.7 (L) 11.7 - 15.5 g/dL Final Hematocrit 02/22/2025 35.1 35 - 47 % Final MCV 02/22/2025 68 (L) 80 - 100 fL Final MCH 02/22/2025 20.8 (L) 27 - 34 pg Final MCHC 02/22/2025 30.5 (L) 32 - 36 g/dL Final RDW 02/22/2025 24.9 (H) 11.5 - 15 % Final Platelet Count 02/22/2025 354 150 - 450 X10E9/L Final MPV 02/22/2025 8.4 7 - 12 fL Final Neutrophils % 02/22/2025 72.1 % Final Lymphocytes % 02/22/2025 19.1 % Final Monocytes % 02/22/2025 6.3 % Final Eosinophils % 02/22/2025 1.4 % Final Basophils % 02/22/2025 1.1 % Final Neutrophils Absolute (A) 02/22/2025 8.2 (H) 1.5 - 6.6 10*3/uL Final Lymphocytes Absolute 02/22/2025 2.2 1.0 - 3.5 10*3/uL Final Monocytes Absolute 02/22/2025 0.7 0.0 - 0.9 10*3/uL Final Eosinophils Absolute 02/22/2025 0.2 0.0 - 0.4 10*3/uL Final Basophils Absolute 02/22/2025 0.1 0.0 - 0.2 10*3/uL Final Anisocytosis 02/22/2025 2+ Final Hypochromia 02/22/2025 1+ Final Target Cells 02/22/2025 1+ Final Elliptocytes 02/22/2025 1+ Final Differential Type 02/22/2025 AUTOMATED DIFFERENTIAL Final SODIUM 02/22/2025 139 134 - 146 mmol/L Final POTASSIUM 02/22/2025 3.4 (L) 3.5 - 5.0 mmol/L Final CHLORIDE 02/22/2025 96 (L) 98 - 109 mmol/L Final CARBON DIOXIDE 02/22/2025 29 22 - 32 mmol/L Final ANION GAP 02/22/2025 14 5 - 15 mmol/L Final BLOOD UREA NITROGEN 02/22/2025 28 (H) 5 - 27 mg/dL Final CREATININE 02/22/2025 1.53 (H) 0.40 - 1.00 mg/dL Final GLUCOSE 02/22/2025 103 (H) 65 - 99 mg/dL Final CALCIUM 02/22/2025 9.2 8.5 - 10.5 mg/dL Final TOTAL PROTEIN 02/22/2025 7.6 6.0 - 8.0 g/dL Final ALBUMIN 02/22/2025 4.1 3.2 - 5.3 g/dL Final ALKALINE PHOSPHATASE 02/22/2025 82 39 - 130 U/L Final AST 02/22/2025 21 <=41 U/L Final ALT 02/22/2025 22 <=31 U/L Final BILIRUBIN,TOTAL 02/22/2025 0.4 0.3 - 1.2 mg/dL Final EGFR Non-Race Dependent 02/22/2025 38 (L) >=60 ml/min/1.73sq.m Final LIPASE 02/22/2025 40 17 - 40 U/L Final MAGNESIUM 02/22/2025 2.3 1.8 - 2.6 mg/dL Final Extra Tube 02/22/2025 Auto Resulted Final Extra Tube 02/22/2025 Auto Resulted Final Extra Tube 02/22/2025 Auto Resulted Final LACTATE W/REFLEX 02/22/2025 0.9 0.4 - 2.0 mmol/L Final Extra Tube 02/22/2025 Auto Resulted Final Extra Tube 02/22/2025 Auto Resulted Final POC Urine Specific [place] 02/22/2025 1.010 1.010, 1.015, 1.020, 1.025 Final POC Urine Leukocyte Esterase 02/22/2025 Negative Negative Final POC Urine Nitrite 02/22/2025 Negative Negative Final POC Urine pH 02/22/2025 5.5 5.0, 6.0, 6.5, 7.0, 7.5, 8.0, 8.5, 5.5 Final POC Urine Protein 02/22/2025 Negative Negative Final POC Urine Glucose 02/22/2025 100 mg/dL (A) Negative Final POC Urine Ketones 02/22/2025 Negative Negative Final POC Urine Urobilinogen 02/22/2025 0.2 E.U./dL Final POC Urine Bilirubin 02/22/2025 Negative Negative Final POC Urine Blood/HGB 02/22/2025 Trace (A) Negative Final Lab on 02/20/2025 Component Date Value Ref Range Status SODIUM 02/20/2025 140 134 - 146 mmol/L Final POTASSIUM 02/20/2025 3.3 (L) 3.5 - 5.0 mmol/L Final CHLORIDE 02/20/2025 96 (L) 98 - 109 mmol/L Final CARBON DIOXIDE 02/20/2025 35 (H) 22 - 32 mmol/L Final ANION GAP 02/20/2025 9 5 - 15 mmol/L Final BLOOD UREA NITROGEN 02/20/2025 16 5 - 27 mg/dL Final CREATININE 02/20/2025 1.17 (H) 0.40 - 1.00 mg/dL Final GLUCOSE 02/20/2025 101 (H) 65 - 99 mg/dL Final CALCIUM 02/20/2025 9.6 8.5 - 10.5 mg/dL Final EGFR Non-Race Dependent 02/20/2025 53 (L) >=60 ml/min/1.73sq.m Final Other Testing No results found. Michael Steiner DO., [facility] Phys[facility] Office: [phone] documented in this encounter Plan of Treatment DateTypeDepartmentCare Team (Latest Contact Info)Igdffvczqdc66/12/2025 7:45 AM ESTAppointment [facility] [address] [facility] [place] [id number] documented as of this encounter Goals GoalPatient Goal TypeAssociated ProblemsRecent ProgressPatient-Stated?Author home Jimena Wilson LSW Note: Evaluation of progress towards goal: feeling better documented as of this encounter Visit Diagnoses Diagnosis Ulcer of esophagus with bleeding- Primary Gastro-esophageal reflux disease without esophagitis Hiatal hernia with GERD Spinal stenosis of lumbar region with neurogenic claudication documented in this encounter Additional Health Concerns AssessmentNoted TimePHQ-9 Depression Total Score: 1:44 PM EST documented as of this encounter Care Teams Team MemberRelationshipSpecialtyStart DateEnd Date Michael Steiner DO [address] [place] [address] PCP - GeneralInternal Medicine12/17/23documented as of this encounter
[2025-03-17 14:58] VITALS: BP 101/72; PULSE 66; TEMP 37.1; O2SAT 94; BMI 34.7
--- NOTE | 2025-03-17 15:14 | ECG_ITS ---
The [facility] Test Date: 2025-03-17 Pat Name: PAULA YORK Department: Room: - Gender: Female Ssas Developer: : 1960 Requested By: RAJNI CARDOZO Order Number: [id number] Reading MD: AYAN PARSONS M.D. Measurements Intervals [place] Rate: 63 P: 45 ND: 146 QRS: 56 QRSD: 88 T: 65 QT: 428 QTc: 436 Interpretive Statements 1100 Sinus rhythm 9110 normal ECG No previous ECG available for comparison Electronically Signed On 03-17-2025 17:43:18 EST by AYAN PARSONS M.D.
--- NOTE | 2025-03-17 15:15 | CT_ITS ---
The [address] [address] Patient Name: PAULA YORK MRN: [id number] date: 1960 Sex: F Assigned Patient Location: ED.MAIN Current Patient Location: ED.MAIN Accession/Order Number: [id number] Exam Date: 03/17/2025 16:22 Report Date: 03/17/2025 17:01 At the request of: MEGHA THOMPSON MD Procedure: CT abdomen pelvis w con CT Abdomen and Pelvis withcontrast TECHNIQUE: Axial imaging with 2-D reconstruction. The CT exam was performed using one or more the following dose reduction techniques: Automated exposure control, adjustment of the MA and/or Kv according to patient size, or use of the iterative reconstruction technique. COMPARISON: None History: Right lower quadrant pain. LIMITATIONS: None LOWER THORAX the basilar atelectasis/scarring. Moderate hiatal hernia. LIVER: Unremarkable GALLBLADDER: Cholecystectomy clips identified. BILE DUCTS: No dilatation SPLEEN: Unremarkable PANCREAS: Unremarkable ADRENAL GLANDS: Unremarkable KIDNEYS:Unremarkable AORTA: No abdominal aortic aneurysm identified. Moderate volume of atherosclerosis RETROPERITONEUM: No significant retroperitoneal abnormalities identified. MESENTERY:Unremarkable STOMACH:Unremarkable SMALL BOWEL: The small bowel loops are nondistended. APPENDIX: The appendix is normal. COLON: Moderate stool in the ascending colon. Nondistended transverse colon. Nondistended descending colon. Nondistended sigmoid colon. URINARY BLADDER: Moderate distention of urinary bladder REPRODUCTIVE SYSTEM: Reproductive structures are unremarkable. PNEUMOPERITONEUM: None PERITONEAL FLUID:None BONY STRUCTURES: Moderate lumbar degeneration. Mild scoliosis. ABDOMINAL WALL: Unremarkable CT/CT abdomen pelvis w con IMPRESSION: No focal inflammatory changes of the abdomen and pelvis. basilar linear atelectasis/scarring. Moderate hiatal hernia. A moderate distention of urinary bladder. Normal appendix. Impression dictated by: Ray Junior M.D. 03/17/2025 5:01 PM Dictation Location: [place] Electronically authenticated by: [id number] Y Date: 03/17/2025 17:01
--- NOTE | 2025-03-17 15:15 | ED.GENADUL1 ---
HPI HPI - General Adult General Chief complaint: Abdominal Pain Stated complaint: R SIDE ABDOMINAL PAIN Time Seen by Provider: 03/17/25 15:04 Source: patient Mode of arrival: Wheelchair Limitations: no limitations History of Present Illness HPI narrative: 64-year-old female has had abdominal pain on the right side for about a month and a half. She states it got worse in the last week. She has had previous cholecystectomy. No constipation or diarrhea or fever or trauma. No blood in her stool. No cough or chest pain or shortness of breath. Related Data Home Medications ?Medication ?Instructions ?Recorded ?Confirmed clonazepam 0.5 mg tablet 1 mg PO DAILY 02/23/24 02/13/25 empagliflozin 10 mg tablet 10 mg PO DAILY 02/23/24 02/13/25 (Jardiance) topiramate 100 mg tablet (Topamax) 100 mg PO BID 02/23/24 02/13/25 torsemide 40 mg tablet 160 mg PO DAILY 02/23/24 02/13/25 albuterol sulfate 90 mcg/actuation 1 puff inhalation Q4H PRN 02/24/24 02/13/25 aerosol inhaler shortness of breath or wheezing aripiprazole 15 mg tablet 15 mg PO BEDTIME 02/24/24 02/13/25 budesonide 160 mcg-glycopyr 9 2 inh inhalation BID 02/24/24 02/13/25 mcg-formot 4.8 mcg/actuation HFA inhaler (Breztri Aerosphere) lamotrigine 150 mg tablet 150 mg PO DAILY 02/24/24 02/13/25 pantoprazole 40 mg tablet,delayed 40 mg PO DAILY 02/24/24 02/13/25 release potassium chloride 20 mEq 20 meq PO DAILY 02/24/24 02/23/25 tablet,extended release spironolactone 25 mg tablet 25 mg PO DAILY 02/24/24 02/13/25 hydroxyzine HCl 25 mg tablet mg 11/14/24 vortioxetine 10 mg tablet 10 mg PO DAILY 02/23/25 02/23/25 (Trintellix) Previous Rx's ?Medication ?Instructions ?Recorded gabapentin 300 mg capsule 300 mg PO TID #90 caps 02/23/25 Allergies Allergy/AdvReac Type Severity Reaction Status Date / Time Penicillins Allergy Unknown Unknown Verified 03/17/25 14:57 Opioid HPI Opioid Management Most Recent Opioid Data: Last Pain Scale 5 Today, 14:58 Review of Systems ROS Narrative A ten point review of systems is negative except as noted above. PFSH PFSH Medical History Rheumatoid arthritis ?M06.9 - Rheumatoid arthritis, unspecified (ICD-10) Anemia ?D64.9 - Anemia, unspecified (ICD-10) Panic disorder ?F41.0 - Panic disorder [episodic paroxysmal anxiety] (ICD-10) PTSD (post-traumatic stress disorder) ?F43.10 - Post-traumatic stress disorder, unspecified (ICD-10) Bipolar 1 disorder ?F31.9 - Bipolar disorder, unspecified (ICD-10) Anxiety ?F41.9 - Anxiety disorder, unspecified (ICD-10) Acid reflux ?K21.9 - Gastro-esophageal reflux disease without esophagitis (ICD-10) BONY treated with BiPAP ?G47.33 - Obstructive sleep apnea (adult) (pediatric) (ICD-10) Sleep apnea ?G47.30 - Sleep apnea, unspecified (ICD-10) COPD (chronic obstructive pulmonary disease) ?J44.9 - Chronic obstructive pulmonary disease, unspecified (ICD-10) CHF (congestive heart failure) ?I50.9 - Heart failure, unspecified (ICD-10) Angina at rest ?I20.89 - Other forms of angina pectoris (ICD-10) Heart attack ?I21.9 - Acute myocardial infarction, unspecified (ICD-10) Surgical History Stented coronary artery ?Z95.5 - Presence of coronary angioplasty implant and graft (ICD-10) Hx of cholecystectomy ?Z90.49 - Acquired absence of other specified parts of digestive tract (ICD-10) H/O section ?Z98.891 - History of uterine scar from previous surgery (ICD-10) Hx of CABG ?Z95.1 - Presence of aortocoronary bypass graft (ICD-10) Social History Little interest or pleasure in doing things: not at all Feeling down, depressed, or hopeless: not at all Exam Narrative Exam Narrative: Nurses note and vital signs reviewed General:The patient appears in no apparent distress. Patient is resting comfortably on cart. Skin:Warm, dry, no pallor noted.There is no rash noted. Head:Normocephalic, atraumatic Eye: Normal conjunctiva, no drainage Ears, Nose, Mouth, and Throat: oral mucosa is moist. Nares patent. Cardiovascular:Regular Rate and Rhythm Respiratory:Patient is in no distress, no accessory muscle use, lungs are clear to auscultation, no wheezing, rales or rhonchi Back:non-tender GI: Soft and nondistended, no masses. She has diffuse tenderness on the right side, nonfocal Musculoskeletal: The patient has no evidence of calf tenderness, no pitting edema, symmetrical pulses noted bilaterally Neurological:A&O, normal speech Psychiatric:Cooperative Constitutional Vital Signs, click to edit/add: Last Vital Signs Temp 98.7 F 03/17/25 14:58 Pulse 66 03/17/25 14:58 Resp 16 03/17/25 14:58 BP 101/72 03/17/25 14:58 Pulse Ox 94 L 03/17/25 14:58 O2 Del Method Room Air, Nasal Cannula 03/17/25 14:58 O2 Flow Rate 2 03/17/25 14:58 Course Vital Signs Vital signs: Vital Signs Temperature 98.7 F 03/17/25 14:58 Pulse Rate 66 03/17/25 14:58 Respiratory Rate 16 03/17/25 14:58 Blood Pressure 101/72 03/17/25 14:58 Pulse Oximetry 94 L 03/17/25 14:58 Oxygen Delivery Method Room Air, Nasal Cannula 03/17/25 14:58 Oxygen Delivery Flow Rate 2 03/17/25 14:58 Temperature 98.7 F 03/17/25 14:58 Pulse Rate 66 03/17/25 14:58 Respiratory Rate 16 03/17/25 14:58 Blood Pressure 101/72 03/17/25 14:58 Pulse Oximetry 94 L 03/17/25 14:58 Oxygen Delivery Method Room Air, Nasal Cannula 03/17/25 14:58 Oxygen Delivery Flow Rate 2 03/17/25 14:58 Medical Decision Making MDM Narrative Medical decision making narrative: Her workup including CT of the abdomen is negative. She will be discharged home and will follow-up with her doctor if symptoms persist. Treatment diagnosis and follow-up were discussed with the patient. Differential Diagnosis Differential Diagnosis: Constipation, colitis, pancreatitis, hepatitis, UTI Lab Data Lab results reviewed: Yes I reviewed the patient's lab results Labs: Lab Results 03/17/25 03/17/25 Range/Units 15:23 15:45 WBC 8.7 (4.0-11.0) 10^3/uL RBC 5.08 (4.20-5.40) 10^6/uL Hgb 10.8 L (12.0-16.0) g/dL Hct 37.3 (36.0-48.0) % MCV 73.4 L (81.0-99.0) fL MCH 21.3 L (26.7-34.0) pg MCHC 29.0 L (29.9-35.2) g/dL RDW 20.8 H (11.0-15.0) % Plt Count 323 (150-450) 10^3/uL MPV 9.6 (9.5-13.5) fL Neut % (Auto) 65.3 (43.0-75.0) % Lymph % (Auto) 27.0 (20.5-60.0) % [place] % (Auto) 5.2 (1.7-12.0) % Eos % (Auto) 1.6 (0.9-7.0) % Baso % (Auto) 0.7 (0.2-2.0) % Neut # (Auto) 5.7 (1.4-6.5) 10^3/uL Lymph # (Auto) 2.3 (1.2-3.8) 10^3/uL [place] # (Auto) 0.5 (0.3-0.8) 10^3/uL Eos # (Auto) 0.1 (0.0-0.7) 10^3/uL Baso # (Auto) 0.1 (0.0-0.1) 10^3/uL Abs Immat Gran (auto) 0.02 (0.00-0.03) 10^3/uL Imm/Tot Granulo (auto) 0.2 (0.0-0.5) % Sodium 141 (136-145) mmol/L Potassium 3.8 (3.5-5.1) mmol/L Chloride 100 (98-107) mmol/L Carbon Dioxide 33.8 H (21.0-32.0) mmol/L Anion Gap 11.0 BUN 21.0 H (7.0-18.0) mg/dL Creatinine 1.26 H (0.55-1.02) mg/dL Est GFR ( Amer) 52 L (>=60 mL/min/1.73m^2) Est GFR (Non-Af Amer) 43 L (>=60 mL/min/1.73m^2) BUN/Creatinine Ratio 16.7 Glucose 104 (74-106) mg/dL Calcium 9.3 (8.5-10.1) mg/dL Total Bilirubin 0.2 (0.2-1.0) mg/dL Direct Bilirubin 0.1 (0.0-0.2) mg/dL AST 26 (15-37) U/L ALT 35 (14-59) U/L Alkaline Phosphatase 101 (46-116) U/L Total Protein 7.3 (6.4-8.2) g/dL Albumin 3.5 (3.4-5.0) g/dL Globulin 3.8 g/dL Albumin/Globulin Ratio 0.9 Amylase 94 (25-115) U/L Lipase 35.0 (16.0-77.0) U/L Urine Color Lt. yellow (YELLOW) Urine Clarity Clear (CLEAR) Urine pH 7.0 (5.0-9.0) Ur Specific [place] <=1.005 A (1.005-1.025) Urine Protein Negative (NEG/TRACE) mg/dL Urine Glucose (UA) 100 A (NEGATIVE) mg/dL Urine Ketones Negative (NEGATIVE) mg/dL Urine Occult Blood Negative (NEGATIVE) Urine Nitrite Negative (NEGATIVE) Urine Bilirubin Negative (NEGATIVE) Urine Urobilinogen 0.2 (0.2-1.0) EU/dL Ur Leukocyte Esterase Negative (NEGATIVE) Urine RBC None seen (0-2) #/HPF Urine WBC None seen (NONE SEEN) #/HPF Ur Squamous Epith Cells Rare (NONE/RARE) #/LPF Urine Crystals None seen (None Seen) #/HPF Urine Bacteria None seen (NONE SEEN) #/HPF Urine Casts None seen (NONE SEEN) #/LPF Urine Mucus None seen (NONE SEEN) Ur Culture Indicated? No Imaging Data CT scan - abdomen: Radiologist's impression: ITS Impressions Abdomen/Pelvis CT 03/17/25 15:15 IMPRESSION: No focal inflammatory changes of the abdomen and pelvis. basilar linear atelectasis/scarring. Moderate hiatal hernia. A moderate distention of urinary bladder. Normal appendix. Impression dictated by: Ray Junior M.D. 03/17/2025 5:01 PM Dictation Location: [place] [address] Electronically authenticated by: [id number] Y Date: 03/17/2025 17:01 ECG Data Attestation: I personally reviewed and interpreted this ECG as follows: (EKG on my interpretation shows normal sinus rhythm with rate of 63 and no acute change.) Discharge Plan Discharge Chief Complaint: Abdominal Pain Clinical Impression: Abdominal pain Patient Disposition: Home, Self-Care Time of Disposition Decision: 17:23 Condition: Good Mode of Transportation: Private Vehicle Prescriptions / Home Meds: No Action Jardiance 10 mg tablet 10 mg PO DAILY torsemide 40 mg tablet 160 mg PO DAILY clonazepam 0.5 mg tablet 1 mg PO DAILY topiramate [Topamax] 100 mg tablet 100 mg PO BID albuterol sulfate 90 mcg/actuation HFA aerosol inhaler 1 puff INHALATION Q4H PRN (Reason: shortness of breath or wheezing) potassium chloride 20 mEq tablet extended release 20 meq PO DAILY pantoprazole 40 mg tablet,delayed release (DR/EC) 40 mg PO DAILY spironolactone 25 mg tablet 25 mg PO DAILY aripiprazole 15 mg tablet 15 mg PO BEDTIME lamotrigine 150 mg tablet 150 mg PO DAILY Breztri Aerosphere 160-9-4.8 mcg/actuation HFA aerosol inhaler 2 inh inhalation BID gabapentin 300 mg capsule 300 mg PO TID Qty: 90 0RF Trintellix 10 mg tablet 10 mg PO DAILY hydroxyzine HCl 25 mg tablet Print Language: Sammarinese Instructions: Abdominal Pain (ED) Referrals: RAJNI CARDOZO [Primary Care Provider, Internal Medicine] - 1 week
[2025-03-17 15:47] VITALS: PULSE 63
--- OUTSIDE RECORDS SUMMARY | 2025-03-17 15:50 | XMS_ITS | Clinical Summary ---
Author Organization [employer] [facility] tem Address [id number] [place] [address] Care Team Providers Care Twitchell Operator Name Role Phone Joansunshine Michael Janae CABRERA Primary Care Provider [phone] Allergies Active AllergyReactionsCriticalityNoted DateCommentsFentanylOther (See Comments) Gqrlkk5812/15/2024 Terrible dreams MorphineOther (See Comments)03/31/2017 I hallucinate This is not a true allergy IaohmolqbmuXwegagkqmohDecq65/12/2014 Other Reaction(s): Swelling of Lip/Tongue/Throat Medications MedicationSigDispense [...] nightly.05/13/2023ctive doxepin (SINEquan) 75 mg capsule Active fogbmccymr-uxuwdpvh-tuhydqcaip (BREZTRI AEROSPHERE) 160-9-4.8 mcg/actuation HFA aerosol inhaler Indications:Chronic obstructive pulmonary disease, unspecified COPD type ([facility])Inhale 2 puffs in the morning and 2 [...] (150 mg total) by mouth in the morning.10/07/2023ctive atorvastatin (LIPITOR) 80 mg tablet Indications:Atherosclerosis of [place] coronary artery of [place] heart without angina pectoris,Hx of hyperlipidemiaTake 1 tablet (80 mg total) by mouth in the morning. 90 tablet 4Active cyanocobalamin 1000 MCG tablet Take 1 tablet (1,000 mcg total) by mouth in the morning.Active TRINTELLIX 10 mg tablet Take 1 tablet (10 mg total) by mouth in the morning.5Active oxygen Inhale 2 L/min continuously.Active metoprolol succinate XL (TOPROL XL) 25 mg 24 hr tablet Indications:Chronic heart failure with preserved ejection fraction ([facility]), Pulmonary hypertension ([facility]),Nonrheumatic tricuspid valve regurgitation, Essential hypertension,Atherosclerosis of [place] coronary artery of [place] heart without angina pectoris,History of four vessel coronary artery bypass graft, NSTEMI (non-ST elevated myocardial infarction) ([facility])Take 1 tablet (25 mg total) by mouth nightly. 30 tablet 5Active guaiFENesin (MUCINEX) 600 mg tablet extended release 12hr Take 1 tablet (600 mg total) by mouth every 12 (twelve) hours. 14 tablet 5Active Additional Information Patient not taking.Reported on 03/15/2025 hydrOXYzine (ATARAX) 25 mg tablet Take 1 tablet (25 mg total) by mouth 2 (two) times a day as needed for anxiety. 5Active pregabalin (LYRICA) 100 mg capsule Indications:Peripheral polyneuropathyTake 1 capsule (100 mg total) by mouth before bedtime.5Active Additional Information Patient not taking.Reported on 03/15/2025 ezetimibe (ZETIA) 10 mg tablet Indications:Atherosclerotic heart disease of [place] coronary artery with other forms of angina pectorisTAKE 1 TABLET (10 MG TOTAL) BY MOUTH IN THE MORNING 90 tablet 5Active propranoloL (INDERAL) 40 mg tablet Take 1 tablet (40 mg total) by mouth in the morning and at bedtime. TAKE 1 TABLET (40 MG TOTAL) BY MOUTH IN THE MORNING AND BEFORE XBBFEZF95/15/2025Active whopfk-xgspiudsv-oqx,al-simeth (FIRST-MOUTHWASH BLM) 96-207-959-40 mg/30mL mouthwash Indications:StomatitisTake 5 mL by mouth 4 (four) times a day as needed for mucositis or mouth/gum irritation. 119 mL 5Active Additional Information Patient not taking.Reported on 03/15/2025 spironolactone (ALDACTONE) 25 mg tablet Indications:Chronic diastolic [...] mouth in the morning. 30 tablet 5Active torsemide (DEMADEX) 20 mg tablet Indications:Chronic diastolic heart failure (CMS-HCC)Take 4 tablets (80 mg total) by mouth daily. 120 tablet 5Active JARDIANCE 10 mg tablet tablet Indications:Chronic heart failure with preserved ejection fraction (CMS-HCC), Atherosclerosis of [place] coronary artery of [place] heart without angina pectorisTAKE 1 TABLET (10 MG) BY MOUTH IN THE MORNING 90 tablet 5Active pantoprazole (PROTONIX) 40 mg EC tablet Indications:Gastro-esophageal reflux disease without esophagitisTAKE 1 TABLET BY MOUTH EVERY DAY IN THE MORNING BEFORE BREAKFAST 90 tablet 5Active lidocaine (LMX) 4 % cream Indications:Spinal stenosis of lumbar region with neurogenic claudicationApply 1 Application topically as needed for pain. 28 g 5Active empagliflozin (JARDIANCE) 10 mg tablet tablet Indications:Chronic heart failure with preserved ejection fraction (CMS-HCC), Atherosclerosis of [place] coronary artery of [place] heart without angina pectorisTake 1 tablet (10 mg total) by mouth in the morning. TAKE 1 TABLET (10 MG TOTAL) BY MOUTH IN THE MORNING. 90 tablet Discontinued pantoprazole (PROTONIX) 40 mg EC tablet Indications:Gastro-esophageal reflux disease without esophagitisTake 1 tablet (40 mg total) by mouth every morning before breakfast. 90 tablet Discontinued diclofenac-miSOPROStol (ARTHROTEC 50) 50-200 mg-mcg EC tablet Take 1 tablet by mouth in the morning and 1 tablet before bedtime. 60 tablet Discontinued torsemide (DEMADEX) 20 mg tablet Indications:Chronic diastolic heart failure ([facility])Take 2 tablets (40 mg total) by mouth daily. 60 tablet /Discontinued diclofenac-miSOPROStol (ARTHROTEC 50) 50-200 mg-mcg EC tablet Indications:Spinal stenosis of lumbar region with neurogenic claudication,Ulcer of esophagus with bleedingTAKE 1 TABLET BY MOUTH IN THE MORNING AND BEFORE BEDTIME 60 tablet Discontinued diclofenac-miSOPROStol (ARTHROTEC 50) 50-200 mg-mcg EC tablet Indications:Spinal stenosis of lumbar region with neurogenic claudication,Ulcer of esophagus with bleedingTAKE 1 TABLET BY MOUTH IN THE MORNING AND BEFORE BEDTIME 60 tablet Discontinued(Therapy completed) Active Problems ProblemNoted DateDiagnosed DateEsophageal ulcer01/04/2025ute on chronic respiratory failure with hypoxia and bzpuiuasqny24/10/2025History of four vessel coronary artery bypass graft11/28/2024Pulmonary sxnorzqlswee90/04/2025 Nonrheumatic tricuspid valve yhzhjcmulxinr66/04/2025rthritis of left sacroiliac joint07/07/2024Stage 3a chronic kidney ohvnndf1307/07/2024losed wedge compression fracture of T6 vertebra with routine heqyvgb2308/28/2023hronic respiratory failure with hypoxia and deoqjxcuiso37/30/2024Major depressive disorder 05/28/2023anic tblevvow25/01/2024hronic obstructive pulmonary disease 04/29/2023Iron deficiency alsaxq2004/29/2023Gastroesophageal reflux disease without lkvioujaefw73/03/4976Btwjscunuzk55/27/6937Ccqlqrv48/27/2023hipped tooth 10/21/2022ERD (gastroesophageal reflux disease)10/21/2022Osteoarthritis 10/21/2022 Overview (10/21/2022): Apr 2009, swith stent placement Posttraumatic stress shicsabu02/27/2023ipolar 2 disorder, major depressive rjvzvlf3110/21/2022Essential ognygcllnqlz33/02/2023Hx of /02/2023 Former xpcgsd5409/26/2022Obstructive sleep apnea aocofems69/06/2023epressive pcbwgveq30/20/2022Liver lxwskbt9904/15/2022Visual rnakxfkfwv45/20/2022 Overview (04/15/2022): glasses Chronic heart failure with preserved ejection jenrkvil81/03/2022igarette nicotine dependence in ndjsstyzh51/22/5335Woqyoidhkhiwl91/20/2021ow back pain 08/14/2020therosclerosis of coronary artery without angina mlokkvqp80/05/2021 Obesity (BMI 30-39.9)01/30/2020NSTEMI (non-ST elevated myocardial infarction) 01/09/2020 Resolved Problems ProblemNoted DateDiagnosed DateResolved DateAcute hypoxic on chronic hypercapnic respiratory /MI 40.0-44.9, adult Cannabis use disorder, mild, abuse/OVID-19106/16/2022 4Acute respiratory failure with hypoxia and czlmcdblsyg39/19/2023 05/18/2023iPAP (biphasic positive airway pressure) ffhgkguwee87/27/2023 11/06/2022anic cjyahzpa84/ Overview (04/15/2022): Apr 2009, swith stent placement Shortness of /09/2023Hypotension due to /20/2021 11/05/2021SCVD (arteriosclerotic cardiovascular disease)/11/2022 Encounters DateTypeDepartmentCare LxckSzimpnmknph52/21/2025[facility] [address] [place] [place] [address] Risa Summers MD 03/15/2025 1:30 PM ESTOffice Visit [facility] [address] [place] [address] Michael Steiner, Ulcer of esophagus with bleeding (Primary Dx); Gastro-esophageal reflux disease without esophagitis; Hiatal hernia with GERD; Spinal stenosis of lumbar region with neurogenic pkfulmxyiqla35/18/2025Travel 03/10/2025[facility] [address] [place] [address] Michael Steiner DO Spinal stenosis of lumbar region with neurogenic claudication; Ulcer of esophagus with ztukrfac95/14/2025Ref[facility] [address] [place] [address] Michael Steiner DO Spinal stenosis of lumbar region with neurogenic claudication; Ulcer of esophagus with ugatgifj03/14/2025Ref[facility] [address] [place] [address] Michael Steiner DO Spinal stenosis of lumbar region with neurogenic claudication; Ulcer of esophagus with jjwabmuq29/14/2025Refill [facility] [address] [place] [address] Michael Steiner, DO Spinal stenosis of lumbar region with neurogenic claudication (Primary Dx); Ulcer of esophagus with pqhcwyix07/05/2025Telephone [facility] - [facility] [address] [place] [address] Juan Diego Esquivel, [facility] 02/28/2025Refill [facility] - [facility] [address] [place] [address] Michael Steiner, 02/24/2025Refill [facility] - [facility] [address] [place] [address] Michael Steiner, Gastro-esophageal reflux disease without /31/2025Refill [facility] [address] [place] [address] Linda Simon, COLLECTION ANALYST-[facility] Med Orhziy3402/22/2025 3:15 PM EDT - 02/22/2025 5:54 PM EDTEmergency [facility] [address] [place] [address] Fernando Torres MD Right upper quadrant abdominal pain (Primary Dx) Discharge Disposition: Home02/22/20259021Dvzrai92/27/2025Results Follow-Up [facility] - Heart Failure Clinic [address] [place] [address] Kacey Sims RN Basic Metabolic Panel02/20/20258969Ctfstg52/20/7366Rqufzi05/17/2025Telephone [facility] [address] [place] [address] Megan Talley, [facility] 02/09/2025 2:10 PM EDT - 02/09/2025 2:15 PM EDTEmergency [facility] - Emergency [address] [place] [address] Kunal Mims MD Abdominal pain, unspecified abdominal location (Primary Dx) Discharge Disposition: Home02/09/20255941Ofdake89/13/2025 12:00 PM EDTOffice Visit [facility] - Heart Failure [facility] [address] [facility] [address] Risa Summers MD Chronic diastolic heart failure ([facility]) (Primary Dx); Pulmonary hypertension ([facility]); Nonrheumatic tricuspid valve xxemaubvbhohs35/13/2025Telephone [facility] - Family Medicine [address] [place] [address] Tosin Reyes, [facility] 02/06/2025Telephone [facility] - Heart Failure Clinic [address] [place] [address] Antoinette Sanchez CNA 02/03/2025Telephone [facility] [address] [place] [address], [place] [address] Antoinette Sanchez, [facility] 01/10/2025Telephone [facility] - Family Medicine [address] [place] [address] Megan Talley, [facility] 01/10/2025Orders Only [facility] - Family Medicine [address] [place] [address] Michael Steiner, Stomatitis (Primary Dx)01/09/2025Results Follow-Up [facility] - Endoscopy [address] [place] [address] Michael Steiner DO Surgical Gghochhej95/10/2025 10:00 AM EDT - 01/04/2025 11:00 AM EDTSurgery [facility] - Endoscopy [address] [place] [address] Michael Steiner, DO ESOPHAGOGASTRODUODENOSCOPY DIAGNOSTIC [[id number] (CPT??)]01/04/2025 8:57 AM EDT - 01/04/2025 10:46 AM EDTHospital Encounter [facility] - Endoscopy [address] [place] [address] Michael Steiner, DO Ulcer of esophagus without bleeding (Primary Dx); Hiatal hernia; Microcytic anemia Discharge Disposition: Home01/04/20251876Zvgdnw87/09/2025 3:50 PM EDTSupport Visit [facility] - Pre Admit [address] [place] [address] 12/28/2024Results Follow-Up [facility] - Heart Failure Clinic [address] [place] [address] Kacey Sims RN Basic Metabolic Panel12/28/20247989Fdujpd30/03/2025Refill [facility] - Family Medicine [address] [place] [address] Michael Steiner, DO Atherosclerotic heart disease of [place] coronary artery with other forms of angina mymdvvjj42/02/3599Lcbrvz88/27/2025 7:28 AM EDT - 12/21/2024 11:59 PM EDT Hospital Encounter [facility] - Cardiovascular [address] [place] [address] Inez Cook, COLLECTION ANALYST-[employer] Chronic heart failure with preserved ejection fraction (CMS-HCC); Pulmonary hypertension ([facility]); Nonrheumatic tricuspid valve regurgitation; Essential hypertension; Atherosclerosis of [place] coronary artery of [place] heart without angina pectoris; History of four vessel coronary artery bypass graft; NSTEMI (non-ST elevated myocardial infarction) ([facility]) Discharge Disposition: Home12/21/2024Telephone [facility] [address] [place] [address] Juan Diego Esquivel CMA 12/21/20245713Iumjgp41/26/2025Hospital Encounter [facility] - Endoscopy [address] [place] [address] Michael Steiner, Microcytic anemia (Primary Dx)12/19/2024 2:40 PM EDTSupport Visit [facility] - Pre Admit [address] [place] [address] 12/15/2024 12:30 PM EDTOffice Visit [facility] - Family Medicine [address] [place] [address] Michael Steiner DO Microcytic anemia (Primary Dx); Gastro-esophageal reflux disease without esophagitis; Stage 3a chronic kidney disease ([facility]); Spinal stenosis of lumbar region with neurogenic lzwkzefexhjt50/21/2025Results Follow-Up [facility] - Family Medicine [address] [place] [address] Michael tSeiner DO Basic Metabolic Panel12/15/2024Telephone [facility] - Family Medicine [address] [place] [address] Sofya Coe CMA from Last 3 Months Immunizations ImmunizationAdministration DatesNext DuePPD Test05/12/2023,04/30/2023Tuberculin Skin Test; Unspecified Zlgzfcchszj58/16/2024,04/30/2023 Family History Medical HistoryRelationNameCommentsAlcohol abuseFatherDementiaFatherCancer Maternal GrandmotherCervical cancerMaternal GrandmotherDepressionMotherHeart failureMotherHypertensionMotherBreast cancerNeg HxRelationNameStatusComments Brother 1AliveBrother 2AliveFatherDeceasedMaternal GrandfatherDeceasedMaternal GrandmotherDeceasedMotherDeceasedPaternal GrandfatherDeceasedPaternal GrandmotherDeceased Social History Tobacco UseTypesPacks/DayYears UsedDateSmoking Tobacco: OjrzrwGhngsatiin942 09/1981 - mokeless Tobacco: Never Tobacco Cessation:Counseling Given: Not Answered Comments:5-6 cigerettes a day Alcohol UseStandard Drinks/WeekCommentsNot Currently0 (1 standard drink = 0.6 oz pure alcohol)last use 15 years agoAHC UtilitiesAnswerDate RecordedIn the past 12 months has the [employer], [employer], or water [employer] threatened to shut off services in your home?No12/04/2024Social Connection and Isolation PanelAnswer Date RecordedIn a typical week, how many times do you talk on the phone with family, friends, or neighbors?Three times a week07/25/2023How often do you get together with friends or relatives?Three times a week07/25/2023How often do you attend jew or shinto services?More than 4 times per year07/25/2023o you belong to any clubs or organizations such as jew groups, unions, fraternal [...] or more drinks on one occasion?Never07/25/2023HQ-2AnswerDate RecordedTotal Zawvh40005/15/2024[facility] - Occupational Stress QuestionnaireAnswerDate RecordedDo you feel stress - tense, restless, nervous, or anxious, or unable to sleep at night because yourmind is troubled all the time - these days?Only a vjshyk0407/25/2023Exercise Vital Sign AnswerDate RecordedOn average, how many [...] part of a household?No03/14/2025hildcareAnswerDate RecordedDo problems getting early childhood coordinator make 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 to work or study?No12/04/2024 EmploymentAnswerDate RecordedDo you need help finding a local career center and/or a training program?No12/04/2024Hunger ScreeningAnswerDate RecordedWithin the past 12 months we worried whether our food would run out before we got money to buy more.Patient Hnhtkkpq36/19/2025Within the past 12 months the food we bought just didn't last and we didn't have money to get more.Patient Declined 03/15/2025Purpose - LifeAnswerDate RecordedI have a purpose and direction in my life.Strongly Agree07/25/2023CommentsNoSex and Gender InformationValue Date RecordedSex Assigned at LxuulBmovft93/10/2021 8:51 AM EDTLegal SexFemale 02/16/2017 2:26 PM EDTGender PagggspaAnxyij60/10/2021 8:51 AM EDTSexual XtkzjkproajKfumaxgo36/02/2023 8:29 PM EST Last Filed Vital Signs Vital SignReadingTime TakenCommentsBlood Cxxvmnfu107/6403/15/2025 1:44 PM EST Yspxy475703/15/2025 1:44 PM XYVPpcsrhgqkrz28.9 ??C (98.5 ??F)03/15/2025 1:44 PM ESTRespiratory Qbbn383105/15/2024 1:44 PM ESTOxygen Nzsktxtomp39%03/15/2025 1:44 PM ESTInhaled Oxygen Concentration--Kadczr953.7 kg (237 lb 6.4 oz)03/15/2025 1:44 PM SFUTlfsld258.3 cm (5' 9.02 )03/15/2025 1:44 PM ESTBody Mass Index35.04 03/15/2025 1:44 PM EST Plan of Treatment DateTypeDepartmentCare Team (Latest Contact Info)Xuyxdnojfwq63/12/2025 7:45 AM ESTAppointment [facility] [address] [place] [address] Health MaintenanceDue DateLast DoneCommentsDiabetic Ophthalmology Exam1962 Adult BMI Follow Up Plan1980Diabetic Foot Exam1980DTaP,Tdap and Td Vaccines (1 - Tdap)1981Zoster (Shingles) Vaccine (1 of 2)2012RSV ( or age 60+ yrs) (1 - Risk 60-74 years 1-dose series)3Pap Smear51, 02/18/2022tatin Use: Ouzkajrcykxpal91/31/2025 04/26/2024Statin Use: Wrgszyuf31/31/050921dult BMI Zyamznoqm36/19/2026 03/15/2025Depression Mixcpwhda60/19/59468805/15/2024Tobacco Mpuqpgweo85/19/2026 03/15/2025Influenza VaccineDiscontinued Goals GoalPatient Goal TypeAssociated ProblemsRecent ProgressPatient-Stated?Author home Jimena Wilson LSW Note: Evaluation of progress towards goal: feeling better Medical Devices ImplantedTypeAreaManufacturerDevice IdentifierShelf Expiration DateModel / Serial / LotDes Xience Jocelin 2.75x28 Rx - [id number] Implanted:Qty: 1 on 01/09/2020 by Yefri Khan MD at [facility]/A: ArterialABBOTT [id number] / / [id number] Macrina Monreal 2.75x8 Rx - [id number] Implanted:Qty: 1 on 01/09/2020 by Yefri Khan MD at [facility]/A: ArterialABBOTT [id number] / / [id number] Procedures Procedure NamePriorityDate/TimeAssociated DiagnosisCommentsPOCT NURSING URINE MACROSCOPIC OEVrjpbgq54/29/2025 5:26 PM EDT ER EXTRA URINE XNQKMEKNHP17/29/2025 5:18 PM EDT ER EXTRA URINE MQZKDJUBNUA52/29/2025 5:18 PM EDT ER EXTRA MEIPDUWJC34/29/2025 5:[address] ABDOMEN AND PELVIS W MOIRBAWB55/29/2025 3:46 PM EDT EXTRA TUBES SST DBACzxqvkn99/29/2025 3:40 PM EDT EXTRA TUBES BLUE CAQXqmqniu46/29/2025 3:40 PM EDT EXTRA GFHLMCpxglmu49/29/2025 3:40 PM EDT LACTATE W/ BXIZCYPRNN89/29/2025 3:40 PM EDT PUNMXVXQYKUEF72/29/2025 3:40 PM EDT VLDSCJDTXL16/29/2025 3:40 PM EDT COMPREHENSIVE METABOLIC DSYVLIOYU20/29/2025 3:40 PM EDT CBC WITH AUTO GHWIFORAXKFVLWTM86/29/2025 3:40 PM EDT BASIC METABOLIC EUQBXMraccjl26/27/2025 9:08 AM EDT Chronic diastolic heart failure (CMS-HCC) Pulmonary hypertension (CMS-HCC) Nonrheumatic tricuspid valve regurgitation CT ABDOMEN AND PELVIS W GIZMTADI46/16/2025 3:32 PM EDT EXTRA TUBES BLUE OXFQwanadn26/16/2025 2:24 PM EDT EXTRA MJIDQCyzlkra29/16/2025 2:24 PM EDT SXWHEPTJGS04/16/2025 2:24 PM EDT LIVER QFSOHFTHE00/16/2025 2:24 PM EDT BASIC METABOLIC DRZWCRSQA27/16/2025 2:24 PM EDT CBC WITH AUTO CEZZWQXKRKSJUFCV69/16/2025 2:24 PM EDT SURGICAL HDEULPOYGHdzaobe77/10/2025 9:58 AM EDT MN ESOPHAGOGASTRODUODENOSCOPY TRANSORAL SCTEJZFWSJ44/10/2025 9:43 AM EDT microcytic anemia BASIC METABOLIC MDFHWFccdclg97/03/2025 8:56 AM EDT Chronic heart failure with preserved ejection fraction (CMS-HCC) ECHO COMPLETE WO UYUYZSVOOezvudv31/27/2025 8:11 AM EDT Chronic heart failure with preserved ejection fraction (CMS-HCC) Pulmonary hypertension (CMS-HCC) Nonrheumatic tricuspid valve regurgitation Essential hypertension Atherosclerosis of [place] coronary artery of [place] heart without angina pectoris History of four vessel coronary artery bypass graft NSTEMI (non-ST elevated myocardial infarction) (CMS-HCC) BASIC METABOLIC SZWMCFvnzbbv73/21/2025 1:10 PM EDT Stage 3a chronic kidney disease (CMS-HCC) PAP KBWTXKbonpce17/25/2022 10:08 AM EDT Encounter for screening for malignant neoplasm of cervix Encounter for screening for human papillomavirus (HPV) from Last 3 Months or Most Recently Relevant to Health Maintenance Results * (ABNORMAL) POCT Nursing Urine Macroscopic UA (02/22/2025 5:26 PM EDT)Component ValueRef RangeTest MethodAnalysis TimePerformed AtPathologist [facility] Urine Specific Gravity1.0101.010, 1.015, 1.020, 1.0617702/22/2025 5:27 PM EDT [facility] Urine Leukocyte EsteraseNegative Nicuydez13/29/2025 5:[facility] Urine NdalvbhFfdayfprHybieooj53/29/2025 5:[facility] Urine pH5.55.0, 6.0, 6.5, 7.0, 7.5, 8.0, 8.5, 5. 5:27 PM [facility]TPWEX[facility] Urine ProteinNegativeNegative 02/22/2025 5:27 [facility] Urine Scozjxz949 mg/dL(A)Qimzcwcf46/29/2025 5:27 PM [facility] Urine EzbkmqkWcttrzjeZubqzthw84/29/2025 5:27 PM [facility] Urine Urobilinogen0.2 E.U./dL02/22/2025 5:27 PM [facility] Urine EzjbarahzUlfxamicUjrdxhdm14/29/2025 5:27 PM [facility] Urine Blood/HGBTrace(A)Negative 02/22/2025 5:27 PM EDPomerene Hospitalimen (Source) Anatomical Location / LateralityCollection Method / VolumeCollection Time Received ErjuNoerl79/29/2025 5:26 PM EDT1 5:26 PM EDT Narrative Authorizing ProviderResult TypeResult StatusPahuseyin Torres MDPOINT OF CARE TEST ORDERABLESFinal ResultPerforming OrganizationAddHaven Behavioral Hospital of Eastern Pennsylvaniaty/State/ZIP CodePhone Number [address] [place] [address], [place] * Extra Urine Means (02/22/2025 5:18 PM EDT)ComponentValueRef RangeTest Method Analysis TimePerformed AtPathologist SignatureExtra TubeAuto Resulted 02/22/2025 7:01 PM [facility]TPM[facility] (Source) Anatomical Location / LateralityCollection Method / VolumeCollection Time Received TimeUrineUrine specimen collection, clean catch / Izsosxa8802/22/2025 5:18 PM EDT1 5:56 PM EDT Narrative Authorizing ProviderResult TypeResult StatusAmber Andrade COLLECTION ANALYST-CNPURINE ORDERABLESFinal ResultPerforming OrganizationAddressCity/State/ZIP CodePhone Number [address] [place] [address], [place] * Extra Urine Culture (02/22/2025 5:18 PM EDT)ComponentValueRef RangeTest Method Analysis TimePerformed AtPathologist SignatureExtra TubeAuto Resulted 02/22/2025 7:01 PM EDTPMorrow [facility] Hospital (Source) Anatomical Location / LateralityCollection Method / VolumeCollection Time Received TimeUrineUrine specimen collection, clean catch / Kqdrbhm2502/22/2025 5:18 PM EDT1 5:56 PM EDT Narrative Authorizing ProviderResult TypeResult StatusAmber Andrade COLLECTION ANALYST-CNPURINE ORDERABLESFinal ResultPerforming OrganizationAddHaven Behavioral Hospital of Eastern Pennsylvaniaty/State/ZIP CodePhone Number [address] [place] [address], [place] * Extra Urine (02/22/2025 5:18 PM EDT)ComponentValueRef RangeTest MethodAnalysis TimePerformed AtPathologist SignatureExtra TubeAuto Fbrqbclt40/29/2025 7:01 PM EDTPMorrow [facility] Hospital (Source)Anatomical Location / LateralityCollection Method / VolumeCollection TimeReceived TimeUrineUrine specimen collection, clean catch / Gmxvmjt6102/22/2025 5:18 PM EDT1 5:56 PM EDT Narrative Authorizing ProviderResult TypeResult StatusAmber Andrade COLLECTION ANALYST-CNPURINE ORDERABLESFinal ResultPerforming OrganizationAddressCity/State/ZIP CodePhone Number [facility] [address] [place] [address], [place] * CT abdomen and pelvis with [...] 3:54 PM Authorizing ProviderResult TypeResult StatusAmber Zafar COLLECTION ANALYST-CNPIMG CT ORDERABLESFinal Result * SST TOP (02/22/2025 3:40 PM EDT)ComponentValueRef RangeTest MethodAnalysis TimePerformed AtPathologist SignatureExtra TubeAuto Kelixtgw05/29/2025 5:01 PM EDTPOHIO STATE HARDING HOSPITALpecimen (Source)Anatomical Location / LateralityCollection Method / VolumeCollection TimeReceived TimeBloodVenous blood / Pdgakvm4102/22/2025 3:40 PM EDT1 4:01 PM EDT Narrative Authorizing ProviderResult TypeResult StatusAmber Andrade COLLECTION ANALYST-CNPLAB BLOOD ORDERABLESFinal ResultPerforming OrganizationAddressCity/State/ZIP CodePhone Number [address] [place] [address], [place] * Light Blue Top (02/22/2025 3:40 PM EDT) Only the most recent of2 resultswithin the time period is included. ComponentValueRef RangeTest MethodAnalysis TimePerformed AtPathologist Signature Extra TubeAuto Bxgtcirp81/29/2025 5:01 PM EDK[facility] Specimen (Source)Anatomical Location / LateralityCollection Method / Volume Collection TimeReceived TimeBloodVenous blood / Mnnfmke5202/22/2025 3:40 PM EDT 02/22/2025 4:01 PM EDT Narrative Authorizing ProviderResult TypeResult StatusAmber Andrade CORADON-CNPLAB BLOOD ORDERABLESFinal ResultPerforming OrganizationAddressCity/State/ZIP CodePhone Number [address] [place] [address], [place] * Lactate w/ Reflex (02/22/2025 3:40 PM EDT)ComponentValueRef RangeTest Method Analysis TimePerformed AtPathologist SignatureLACTATE W/REFLEX0.90.4 - 2.0 mmol/L1 4:13 PM EDTPOHIO STATE HARDING HOSPITALpecimen (Source)Anatomical Location / LateralityCollection Method / VolumeCollection TimeReceived TimeBloodVenous blood / UnknownVenipuncture / Msxizfk8702/22/2025 3:40 PM EDT1 3:55 PM EDT Narrative [facility] - 02/22/2025 4:13 PM EDT Result did not trigger repeat Lactate, re-order if needed. Authorizing ProviderResult TypeResult StatusAmber Andrade COLLECTION ANALYST-CNPLAB BLOOD ORDERABLESFinal ResultPerforming OrganizationAddressCity/State/ZIP CodePhone Number [facility] [address] [place] [address], * (ABNORMAL) CBC auto differential (02/22/2025 3:40 PM EDT) Only the most recent of2 resultswithin the time period is included. ComponentValueRef RangeTest MethodAnalysis TimePerformed AtPathologist Signature WBC11.4(H)4 - 11 x10E9/L1 4:25 PM EDTPMARIETTA MEMORIAL HOSPITALRBC Count5.163.8 - 5.2 X10E12/L1 4:25 PM EDKETTERING HEALTH [facility] SOIN MEDICAL CENTERHemoglobin10.7(L)11.7 - 15.5 g/dL02/22/2025 4:25 PM EDT [facility]ITALHematocrit35.135 - 47 %02/22/2025 4:25 PM EDT [facility]ITALMCV68(L)80 - 100 fL02/22/2025 4:25 PM EDT [facility]ITALMCH20.8(L)27 - 34 pg02/22/2025 4:25 PM EDT [facility]ITALMCHC30.5(L)32 - 36 g/dL02/22/2025 4:25 PM EDT [facility]OSPITALRDW24.9(H)11.5 - 15 %02/22/2025 4:25 PM EDT [facility]ITALPlatelet Fagxz265320 - 450 X10E9/L1 4:25 PM EDTPMARIETTA MEMORIAL HOSPITALMPV8.47 - 12 fL02/22/2025 4:25 PM EDKETTERING HEALTH [facility] SOIN [facility] CENTERNeutrophils %72.1%02/22/2025 4:25 PM EDT [facility]ITALComment:This is an appended report. These results have been appended to a previously preliminary verified report. Lymphocytes %19.1%02/22/2025 4:25 PM [facility] Comment:This is an appended report. These results have been appended to a previously preliminary verified report.Monocytes %6.3%02/22/2025 4:25 PM T [facility]ITALComment:This is an appended report. These results have been appended to a previously preliminary verified report. Eosinophils %1.4%02/22/2025 4:25 PM [facility] Comment:This is an appended report. These results have been appended to a previously preliminary verified report.Basophils %1.1%02/22/2025 4:25 PM EDT [facility]ITALComment:This is an appended report. These results have been appended to a previously preliminary verified report. Neutrophils Absolute (A)8.2(H)1.5 - 6.6 10*3/uL02/22/2025 4:25 PM [facility]ENTERComment:This is an appended report. These results have been appended to a previously preliminary verified report.Lymphocytes Absolute 2.21.0 - 3.5 10*3/uL02/22/2025 4:25 PM [facility] Comment:This is an appended report. These results have been appended to a previously preliminary verified report.Monocytes Absolute0.70.0 - 0.9 10*3/uL 02/22/2025 4:25 PM [facility]Comment:This is an appended report. These results have been appended to a previously preliminary verified report.Eosinophils Absolute0.20.0 - 0.4 10*3/uL02/22/2025 4:25 PM T [facility]ITALComment:This is an appended report. These results have been appended to a previously preliminary verified report.Basophils Absolute0.10.0 - 0.2 10*3/uL02/22/2025 4:25 PM [facility]Comment:This is an appended report. These results have been appended to a previously preliminary verified report.Anisocytosis2+02/22/2025 4:25 PM EDT [facility]ITALComment:This is an appended report. These results have been appended to a previously preliminary verified report. Hypochromia1+02/22/2025 4:25 PM EDKET[facility]ALTH [facility]ENTERComment: This is an appended report. These results have been appended to a previously preliminary verified report.Target Cells1+02/22/2025 4:25 PM EDKET[facility] CENTERComment:This is an appended report. These results have been appended to a previously preliminary verified report.Elliptocytes1+ 02/22/2025 4:25 PM EDKETTERING [facility]ALTH [facility] CENTERComment:This is an appended report. These results have been appended to a previously preliminary verified report.Differential TypeAUTOMATED OCKPLVWEPNGG88/29/2025 4:25 PM EDT [facility]ITALComment:This is an appended report. These results have been appended to a previously preliminary verified report.Specimen (Source)Anatomical Location / LateralityCollection Method / VolumeCollection TimeReceived TimeBloodVenous blood / UnknownVenipuncture / Trphnxo7102/22/2025 3:40 PM EDT1 3:55 PM EDT Narrative Authorizing ProviderResult TypeResult StatusAmber Andrade COLLECTION ANALYST-CNPLAB BLOOD ORDERABLESFinal ResultPerforming OrganizationAddressCity/State/ZIP CodePhone Number [facility] [address] [facility] [place] [address], * Magnesium (02/22/2025 3:40 PM EDT)ComponentValueRef RangeTest MethodAnalysis TimePerformed AtPathologist SignatureMAGNESIUM2.31.8 - 2.6 mg/dL02/22/2025 4:16 PM EDMERCY MEMORIAL HOSPITALpecimen (Source)Anatomical Location / LateralityCollection Method / VolumeCollection TimeReceived Time BloodVenous blood / UnknownVenipuncture / Onrqexf4002/22/2025 3:40 PM EDT 02/22/2025 3:55 PM EDT Narrative Authorizing ProviderResult TypeResult StatusAmber Andrade COLLECTION ANALYST-CNPLAB BLOOD ORDERABLESFinal ResultPerforming OrganizationAddressCity/State/ZIP CodePhone Number [address] [place] [address], [place] * Lipase (02/22/2025 3:40 PM EDT) Only the most recent of2 resultswithin the time period is included. ComponentValueRef RangeTest MethodAnalysis TimePerformed AtPathologist Signature BMFZBD0985 - 40 U/L1 4:14 PM [facility] Specimen (Source)Anatomical Location / LateralityCollection Method / Volume Collection TimeReceived TimeBloodVenous blood / UnknownVenipuncture / Unknown 02/22/2025 3:40 PM EDT1 3:55 PM EDT Narrative Authorizing ProviderResult TypeResult StatusAmber Andrade COLLECTION ANALYST-CNPLAB BLOOD ORDERABLESFinal ResultPerforming OrganizationAddressCity/State/ZIP CodePhone Number [address] [place] [address], [place] * (ABNORMAL) Comprehensive metabolic panel (02/22/2025 3:40 PM EDT)Component ValueRef RangeTest MethodAnalysis TimePerformed AtPathologist SignatureSODIUM 652892 - 146 mmol/L1 4:16 PM [facility] POTASSIUM3.4(L)3.5 - 5.0 mmol/L1 4:16 PM [facility]ENTERCHLORIDE96(L)98 - 109 mmol/L1 4:16 PM EDKET[facility] CENTERCARBON BCUEXHW0159 - 32 mmol/L1 4:16 PM EDT [facility]ITALANION WQI633 - 15 mmol/L1 4:16 PM EDKETTERING HEALTH – SOIN MEDICAL CENTERBLOOD UREA DCQIXSQF89(H)5 - 27 mg/dL 02/22/2025 4:16 PM EDKETTERING HEALTH – SOIN MEDICAL CENTERCREATININE1.53(H)0.40 - 1.00 mg/dL02/22/2025 4:16 PM [facility]ENTERComment: METHOD TRACEABLE TO IDMS PUUIFRIWSQFGIWH646(H)65 - 99 mg/dL02/22/2025 4:16 PM [facility] CENTERCALCIUM9.28.5 - 10.5 mg/dL02/22/2025 4:16 PM [facility] CENTERTOTAL PROTEIN7.66.0 - 8.0 g/dL 02/22/2025 4:16 PM [facility]ENTERALBUMIN4.13.2 - 5.3 g/dL02/22/2025 4:16 PM [facility]ENTERALKALINE KULBSIXWYDS2663 - 130 U/L1 4:16 PM [facility]ENTERAST21<=41 U/L1 4:16 PM [facility] ALT22<=31 U/L1 4:16 PM [facility] BILIRUBIN,TOTAL0.40.3 - 1.2 mg/dL02/22/2025 4:16 PM [facility] CENTEREGFR Non-Race Obdfutuut08(L)>=60 ml/min/1.73sq.m1 4:16 PM [facility]ENTERComment: eGFR not reported due to non-numeric value for Creatinine. Reported eGFR is based on the CKD-EPI 2020 equation that does not use a race coefficient. Specimen (Source)Anatomical Location / LateralityCollection Method / Volume Collection TimeReceived TimeBloodVenous blood / UnknownVenipuncture / Unknown 02/22/2025 3:40 PM EDT1 3:55 PM EDT Narrative Authorizing ProviderResult TypeResult StatusAmber Andrade COLLECTION ANALYST-CNPLAB BLOOD ORDERABLESFinal ResultPerforming OrganizationAddressCity/State/ZIP CodePhone Number [facility] [address] [facility] [place] [address], * (ABNORMAL) Basic Metabolic Panel (02/20/2025 9:08 AM EDT) Only the most recent of4 resultswithin the time period is included. ComponentValueRef RangeTest MethodAnalysis TimePerformed AtPathologist Signature CILKYD469898 - 146 mmol/L1 2:22 PM [facility] LABORATORYPOTASSIUM3.3(L)3.5 - 5.0 mmol/L1 2:22 PM [facility] UPVSYEEMNLRHXOSQLW36(L)98 - 109 mmol/L1 2:22 PM [facility] LABORATORYCARBON XYFFRNV87(H)22 - 32 mmol/L1 2:22 PM [facility] LABORATORYANION GAP95 - 15 mmol/L1 2:22 PM [facility] LABORATORYBLOOD UREA NBTARMNN177 - 27 mg/dL 02/20/2025 2:22 PM [facility] LABORATORYCREATININE1.17(H)0.40 - 1.00 mg/dL02/20/2025 2:22 PM [facility] LABORATORYComment: METHOD TRACEABLE TO IDMS BYQPURSXFQSUBNS088(H)65 - 99 mg/dL02/20/2025 2:22 PM [facility] LABORATORYCALCIUM9.68.5 - 10.5 mg/dL02/20/2025 2:22 PM [facility] LABORATORYEGFR Non-Race Lfvqzhdwk39(L)>=60 ml/min/1.73sq.m1 2:22 PM [facility] LABORATORYComment: Reported eGFR is based on the CKD-EPI 2020 equation that does not use a race coefficient. Specimen (Source)Anatomical Location / LateralityCollection Method / Volume Collection TimeReceived TimeBloodVenous blood / UnknownVenipuncture / Unknown 02/20/2025 9:08 AM EDT1 9:08 AM EDT Narrative Authorizing ProviderResult TypeResult StatusImad Jose LEIJA BLOOD ORDERABLES Final ResultPerforming OrganizationAddressCity/State/ZIP CodePhone Number [facility] [address] [place] [address], * Liver panel (02/09/2025 2:24 PM EDT)ComponentValueRef RangeTest MethodAnalysis TimePerformed AtPathologist SignatureTOTAL PROTEIN7.96.0 - 8.0 g/dL02/09/2025 2:59 PM EDKETTERING HEALTH – SOIN MEDICAL CENTERALBUMIN4.23.2 - 5.3 g/dL 02/09/2025 2:59 PM EDKETTERING [facility] SOIN MEDICAL CENTERBILIRUBIN,TOTAL0.70.3 - 1.2 mg/dL02/09/2025 2:59 PM EDKETTERING [facility] SOIN MEDICAL CENTERALKALINE PWKEESECZEG3481 - 130 U/L1 2:59 PM EDKETTERING [facility] SOIN MEDICAL CENTERAST20<=41 U/L1 2:59 PM [facility] ALT17<=31 U/L1 2:59 PM [facility] BILIRUBIN,DIRECT0.1<=0.4 mg/dL02/09/2025 2:59 PM [facility]pec[facility] (Source)Anatomical Location / LateralityCollection Method / VolumeCollection TimeReceived TimeBloodVenous blood / UnknownVenipuncture / Rmfeymu0102/09/2025 2:24 PM EDT1 2:35 PM EDT Narrative Authorizing ProviderResult TypeResult StatusPamartina Mims MDLAB BLOOD ORDERABLESFinal ResultPerforming OrganizationAddressCity/State/[facility] CodePhone Number [facility] [address] [place] [address], * Surgical Pathology (01/04/2025 9:58 AM EDT)ComponentValueRef RangeTest Method Analysis TimePerformed AtPathologist SignatureCase ReportSurgical Pathology Report ? Case: [id number] ? Authorizing Provider: ??Michael Steiner, DO ? Collected: ? 01/04/2025 0958 ? Ordering Location: ? [facility] ? Received: ?01/04/2025 1152 ? [facility] - ? Endoscopy ? Pathologist: ? Kelby Snow Maher, MD ? Specimens: ?? 1) - Duodenum, Duodenum biopsies ? 2) - Antrum, Antrum biopsies ? 3) - Stomach, hiatal hernia biopsies ? 4) - Esophagus, distal esophagus ulceration biopsies ? 01/13/2025 9:25 AM [facility] LABORATORYFinal Diagnosis1. Duodenal biopsies: Normal duodenal mucosa. [...] intestinal metaplasia or dysplasia identified.01/13/2025 9:25 AM [facility] at 1334 EDTAddendum 4. PAS stain for fungus is negative. Immunostains for HSV and CMV are also negative. All controls are satisfactory.01/13/2025 9:25 AM [facility] LABORATORYAddendum electronically signed by Kelby Maher MD on 01/13/2025 at 0925 EDTGross Description1. Received in formalin labeled COOL, #1: Duodenum biopsies are 2 garrido bits of soft tissue, each 0.3 cm in greatest dimension. Filtered and submitted in a single cassette. (1, ns, [id number], m7) MG 2. Received in formalin labeled COOL, #2: Antrum biopsies is a single garrido bit of soft tissue, 0.2cm in greatest dimension. Filtered and submitted in a single cassette. (1, ns, [id number], m7) MG 3. Received in formalin labeled COOL, #3: Hiatal hernia biopsies are 2 garrido bits of soft tissue, ranging from 0.2-0.3 cm in greatest dimension. Filtered and submitted in a single cassette. (1, ns, [id number], m7) MG 4. Received in formalin labeled COOL, #4: Distal esophagus ulceration biopsies are 5 garrido delicatebits of soft tissue, ranging from 0.1-0.2 cm in greatest dimension. Filtered and submitted in a single cassette. (1, ns, [id number], m7) MG01/13/2025 9:25 AM [facility] LABORATORYEmbedded Images 01/13/2025 9:25 AM [facility] LABORATORYSpecimen (Source)Anatomical Location / LateralityCollection Method / VolumeCollection TimeReceived Time Tissue (Duodenum)01/04/2025 9:58 AM EDT01/04/2025 11:52 AM EDTComment:Pre-op diagnosis: microcytic anemiaTissue specimen (specimen)Mastoid antrum structure / Unknown 01/04/2025 9:59 AM EDT01/04/2025 11:52 AM EDTComment:Pre-op diagnosis: microcytic anemiaTissue specimen (specimen)Stomach structure / Dhadizq6901/04/2025 10:03 AM EDT01/04/2025 11:52 AM EDTComment:Pre-op diagnosis: microcytic anemiaTissue specimen (specimen)Esophageal structure / Unknown 01/04/2025 10:04 AM EDT01/04/2025 11:52 AM EDTComment:Pre-op diagnosis: microcytic anemia Narrative Authorizing ProviderResult TypeResult StatusMichael Steiner DOPATHOLOGY/CYTOLOGY ORDERABLESEdited Result - FinalPerforming OrganizationAddressCity/State/ZIP Code Phone Number [facility] [address] [place] [address], [facility] [address] [place] [address], * Echo complete W/O contrast (12/21/2024 8:11 AM EDT)ComponentValueRef RangeTest MethodAnalysis TimePerformed AtPathologist SignatureLVOT stroke .57ml XCELERALV Systolic Rahfmy34.10rVMABGGEIXP74%GIIZBCXKS8465 - 44 %XCELERALV Diastolic Ivtlos340.19uZKGEDEFJCFFDd8.39dtGUCUQWCFVGBp5.84whCIUDYBLOZZ2.900.6 - 1.1 cmXCELERAPW0.900.6 - 1.1 cmXCELERALVOT diameter2.78nxLVZSCBLIYT4.40cm/s XCELERAMV TDI E' (medial)8.38cm/sXCELERALA Volume Index44.0mL/q3HHCFIUKX/A ratio1.12XCELERAE wave deceleration ohwj472.00msecXCELERAMV Peak E Ktg494.00 cm/sXCELERAMV Peak A Mqi955.00cm/sXCELERALA size4.80cmXCELERAAortic root3.40cm XCELERALA muennm155.86rp7RYYHHPOGZ diastolic dimension (basal)40.0mmXCELERA RVID d3.1rsRPCRLZVVKWUC1.13cmXCELERAAV peak btd285.00cm/sXCELERALVOT peak liz 0.96m/sXCELERAAV VTI38.30cmXCELERALVOT peak VTI23.10cmXCELERAAV mean gradient 6.00mmHgXCELERAAV peak lyiyufwy91.89mmHgXCELERAAV valve area1.89XCELERAValve area - Index0.8XCELERAMV mean gradient2.00mmHgXCELERAMV peak gradient5.95mmHg XCELERAMV VTI46.90cmXCELERAMV valve area by continuity eq1.55XCELERAMV pressure 1/2 time76.00msXCELERAMV valve area p 1/2 method2.30my0EXWQGNXXW Peak Vel3.2m/sXCELERATR peak qioceipv85.81mmHgXCELERAPV mean gradient4.00mmHg XCELERAPV peak gradient6.55mmHgXCELERALV ESV A2C87.40mLXCELERALV ESV C8T363.00 mLXCELERAMitral Valve Max Velocity1.22cm/sXCELERALV RWT 2D35.29XCELERAEcho EF Dsoiwgylu96%XCELERAAV Velocity Ratio0.60XCELERALeft Ventricle Mass 163.191629572107670zNEWTYGHNxvqoualvbalvxog Septum Diastolic Thickness by 2D9 cmXCELERARV Peak Systolic Eikmpffy92abZcLMRTTQOOek. RA zlygizav0qwFzVDNCOPIEP area21.3ps3HJKHDGFLvfhdpptrn RegionLateralityModalityChestN/AUltrasound Specimen (Source)Anatomical Location / LateralityCollection Method [...] of aortic valve stenosis. ?Mitral??Valve: There is recdp-qs-ptci regurgitation. There is no evidence of mitral [...] Mitral valve structure is normal. There is zqdum-pb-yiyq regurgitation. There is no evidence of mitral [...] wall motion is normal. Authorizing ProviderResult TypeResult StatusInez Cook COLLECTION ANALYST-CNPCV ECHO ORDERABLESFinal Result * Pap Smear (02/18/2022 10:08 AM EDT)Specimen (Source)Anatomical Location / LateralityCollection Method / VolumeCollection TimeReceived Time02/18/2022 10:08 AM EDT1 10:09 AM EDT Narrative [facility] - 02/28/2022 1:19 PM EDT [facility] ? [facility] ? [address] [place] [address] ? [place] [address] ? Gynecologic Cytology Consultation ? Patient Name:MONET YORK:1960 (Age: 61)Gender:FTaken:02/18/2022eported:02/28/2022hysician(s):Ashtyn Hackett M.D. ([phone])Copy To: Rec. #:[id number]: #[id number] Final Cytologic Interpretation ThinPrep Pap Test (Not otherwise specified): Satisfactory for evaluation. NEGATIVE FOR INTRAEPITHELIAL LESION OR MALIGNANCY. ?? jja/02/28/2022 Interpretation performed at [facility], [address] [place] [address], License number: [id number]. Electronically Signed Out By ?RAZIA Ambrosio(ASCP) Date of Last Menstrual Period: ? (None Given) Other Clinical Conditions: Z12.4 Screening for malignant neoplasm of cervix Z11.51 Screening for HPV Source of Specimen ??ThinPrep Pap Test (Not otherwise specified) ? Thin Prep Pap (COMPLAINT EVALUATION OFFICER) Fee Code(s): ?? G0145 Authorizing ProviderResult TypeResult StatusAbeer [facility] MDPATHOLOGY/CYTOLOGY ORDERABLESFinal ResultPerforming OrganizationAddressCity/State/ZIP CodePhone Number [facility] from Last 3 Months or Most Recently Relevant to Health Maintenance Insurance Advance Directives TypeDate RecordedPatient RepresentativeExplanationDNR Physician Order12/03/2024 3:17 AMDNR Comfort Care 12/03/24Durable Power of Attorney05/15/2023 8:14 AMLiving Will12/19/2021 11:54 AMLIVING WILL & DPOALiving Will11/22/2021 1:59 PMDurable Power of Attorney11/22/2021 1:58 PM * DNR Comfort Care Arrest (DNR-CCA) [place] (Latest Code Status on File) Date ActivatedDate InactivatedComments12/04/2024 9:11 AM12/04/2024 12:20 PM * DNRCCA DNI Date ActivatedDate InactivatedComments12/03/2024 3:16 AM12/03/2024 10:34 AM * Full Code Date ActivatedDate InactivatedComments08/28/2023 4:38 AM08/29/2023 11:50 AM * Full Code Date ActivatedDate InactivatedComments08/28/2023 4:09 AM08/28/2023 4:38 AM * Full Code Date ActivatedDate InactivatedComments07/25/2023 9:03 PM07/27/2023 4:44 PM Care Teams Team MemberRelationshipSpecialtyStart DateEnd Date Michael Steiner DO [address] [place] [address] PCP - GeneralInternal Medicine12/17/23
--- OUTSIDE RECORDS SUMMARY | 2025-03-17 15:50 | XMS_ITS | Encounter Summary ---
Author Organization [facility] tem Address [id number] [address] [place] [address] Care Team Providers Care Automatic Developer Name Role Phone Michael Steiner DO Primary Care Provider [phone] Reason for Visit * ReasonCommentsMed Change Request Encounter Details DateTypeDepartmentCare Team (Latest Contact Info)Alhixufndhb24/14/2025Refill [facility] Physicians Internal Medicine - Family Medicine [address] [place] [address] Michael Steiner DO [address] [place] [address] Spinal stenosis of lumbar region with neurogenic claudication (Primary Dx); Ulcer of esophagus with bleeding Social History Tobacco UseTypesPacks/DayYears UsedDateSmoking Tobacco: OgbljhRmsinhwupu817 09/1981 - mokeless Tobacco: Never Comments:5-6 cigerettes a da y Alcohol UseStandard Drinks/WeekCommentsNot Currently0 (1 standard drink = 0.6 oz pure alcohol)last use 15 years agoAHC UtilitiesAnswerDate RecordedIn the past 12 months has the [employer], gas, oil, or water [employer] threatened to shut off services in your home?No12/04/2024Social Connection and Isolation PanelAnswer Date RecordedIn a typical week, how many times do you talk on the phone with family, friends, or neighbors?Three times a week07/25/2023How often do you get together with friends or relatives?Three times a week07/25/2023How often do you attend orthodox or anabaptism services?More than 4 times per year07/25/2023o you belong to any clubs or organizations such as orthodox groups, unions, fraternal [...] care, and heating?Not very hard 12/04/2024PHQ-2AnswerDate RecordedTotal Mfbll168Finmount[facility] hospital [place] of Occupational Health - Occupational Stress QuestionnaireAnswerDate RecordedDo you feel stress - tense, restless, nervous, or anxious, or unable to sleep at night because yourmind is troubled all the time - these days?Only a cvcfmo3307/25/2023 Exercise Vital SignAnswerDate RecordedOn average, how many [...] part of a household?No12/04/2024hildcareAnswerDate 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 [...] and Gender InformationValue Date RecordedSex Assigned at CzoruIhdwpp96/10/2021 8:51 AM EDTLegal SexFemale 02/16/2017 2:26 PM EDTGender NzsfbietYipamm77/10/2021 8:51 AM EDTSexual YehaufhdqyhBrbhjtcs95/02/2023 8:29 PM ESTdocumented as of this encounter Plan of Treatment DateTypeDepartmentCare Team (Latest Contact Info)Pxvntfmrxpc41/12/2025 7:45 AM ESTAppointment [facility] [address] [place] [address] documented as of this encounter Goals GoalPatient Goal TypeAssociated ProblemsRecent ProgressPatient-Stated?Author home Jimena Wilson LSW Note: Evaluation of progress towards goal: feeling better documented as of this encounter Visit Diagnoses Diagnosis Spinal stenosis of lumbar region with neurogenic claudication- Primary Ulcer of esophagus with bleeding documented in this encounter Additional Health Concerns AssessmentNoted TimePHQ-9 Depression Total Score: 12:36 PM EDT documented as of this encounter Care Teams Team MemberRelationshipSpecialtyStart DateEnd Date Michael Steiner DO [address] [place] [address] PCP - GeneralInternal Medicine12/17/23documented as of this encounter
--- OUTSIDE RECORDS SUMMARY | 2025-03-17 15:50 | XMS_ITS | Encounter Summary ---
Author Organization [facility] tem Address [id number] [address] [place] [address] Care Team Providers Care Exercise Instruct Name Role Phone Michael Steiner DO Primary Care Provider [phone] Encounter Details DateTypeDepartmentCare Team (Latest Contact Info)Mpqnapalvsx30/15/2025Results Follow-Up [facility] - Endoscopy [address] [place] [phone] Michael Steiner DO [address] [place] [address] Surgical Pathology Social History Tobacco UseTypesPacks/DayYears UsedDateSmoking Tobacco: XuahqcSfnrikdckx118 09/1981 - mokeless Tobacco: Never Comments:5-6 cigerettes a da y Alcohol UseStandard Drinks/WeekCommentsNot Currently0 (1 standard drink = 0.6 oz pure alcohol)last [facility] 15 [facility] UtilitiesAnswerDate RecordedIn the past 12 months has the [employer], gas, oil, or water [employer] threatened to shut off services in your home?No12/04/2024Social Connection and Isolation PanelAnswer Date RecordedIn a typical week, how many times do you talk on the phone with family, friends, or neighbors?Three times a week07/25/2023How often do you get together with friends or relatives?Three times a week07/25/2023How often do you attend roman catholic or temple services?More than 4 times per year07/25/2023o you belong to any clubs or organizations such as roman catholic groups, unions, fraternal or athletic groups, [...] care, and heating?Not very hard 12/04/2024PHQ-2AnswerDate RecordedTotal Okbse806Finsanpete [facility] hospital [place] of Occupational Health - Occupational Stress QuestionnaireAnswerDate RecordedDo you feel stress - tense, restless, nervous, or anxious, or unable to sleep at night because yourmind is troubled all the time - these days?Only a chvfqy0507/25/2023 Exercise Vital SignAnswerDate RecordedOn average, how many [...] of a household?No12/04/2024hildcareAnswerDate 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 [...] and Gender InformationValue Date RecordedSex Assigned at BbhxfGxcmxe03/10/2021 8:51 AM EDTLegal SexFemale 02/16/2017 2:26 PM EDTGender DsnukfgbJqitcp69/10/2021 8:51 AM EDTSexual HkxyeyjgozvIppodetm26/02/2023 8:29 PM ESTdocumented as of this encounter Plan of Treatment DateTypeDepartmentCare Team (Latest Contact Info)Hrgbqsyameh50/12/2025 7:45 AM ESTAppointment [facility] - MRI Imaging [address] [place] [phone] documented as of this encounter Goals GoalPatient Goal TypeAssociated ProblemsRecent ProgressPatient-Stated?Author home Jimena Wilson LSW Note: Evaluation of progress towards goal: feeling better documented as of this encounter Visit Diagnoses Not on filedocumented in this encounter Additional Health Concerns AssessmentNoted TimePHQ-9 Depression Total Score: 12:36 PM EDT documented as of this encounter Care Teams Team MemberRelationshipSpecialtyStart DateEnd Date Michael Steiner DO [address] [place] [address] PCP - GeneralInternal Medicine8/22/24documented as of this encounter
--- OUTSIDE RECORDS SUMMARY | 2025-03-17 15:50 | XMS_ITS | Encounter Summary ---
Author Organization [facility] Address [address] [place] [address] Care Team Providers Care Heating Repair Technician Name Role Phone Michael Steiner MD Primary Care Provider [phone] Encounter Details DateTypeDepartmentCare Team (Latest Contact Info)Jzqwsdcjcmc02/14/2025bstract [facility] [address] [place] [phone] Sydnie Guerrero DO [address] [facility] [place] [address] Social History Tobacco UseTypesPacks/DayYears UsedDateSmoking Tobacco: FormerCigarettesQuit: mokeless Tobacco: FormerAlcohol UseStandard Drinks/WeekCommentsNot Currently0 (1 standard drink = 0.6 oz pure alcohol)CommentsUnknownSex and Gender InformationValueDate RecordedSex Assigned at BirthNot on fileLegal KwkHufshz88/15/2023 11:01 PM EDTGender IdentityNot on fileSexual OrientationNot on filedocumented as of this encounter Plan of Treatment DateTypeDepartmentCare Team (Latest Contact Info)Dbttmqmzerf85/04/2026 3:30 PM ESTOffice Visit [facility] [address] [place] [address] Sydnie Guerrero, DO [address] [place] [address] documented as of this encounter Visit Diagnoses Not on filedocumented in this encounter Care Teams Team MemberRelationshipSpecialtyStart DateEnd Date Michael Steiner MD [address] [place] [id number] PCP - GeneralInternal Medicine08/11/23documented as of this encounter
--- OUTSIDE RECORDS SUMMARY | 2025-03-17 15:50 | XMS_ITS | Encounter Summary ---
Author Organization [facility] tem Address [id number] [address] [place] [address] Care Team Providers Care Robotic Toy Inventor Name Role Phone Michael Steiner DO Primary Care Provider [phone] Reason for Visit * ReasonCommentsMed Change Request Encounter Details DateTypeDepartmentCare Team (Latest Contact Info)Jjpbtolepts84/14/2025Refill [facility] Physicians Internal Medicine - Family Medicine [address] [place] [address] Michael Steiner DO [address] [place] [address] Spinal stenosis of lumbar region with neurogenic claudication; Ulcer of esophagus with bleeding Social History Tobacco UseTypesPacks/DayYears UsedDateSmoking Tobacco: IxxkbyJikukbpfvb630 09/1981 - mokeless Tobacco: Never Comments:5-6 cigerettes a da y Alcohol UseStandard Drinks/WeekCommentsNot Currently0 (1 standard drink = 0.6 oz pure alcohol)last use 15 years agoAH UtilitiesAnswerDate RecordedIn the past 12 months has the [employer], gas, oil, or water [employer] threatened to shut off services in your home?No12/04/2024Social Connection and Isolation PanelAnswer Date RecordedIn a typical week, how many times do you talk on the phone with family, friends, or neighbors?Three times a week03/30/2024How often do you get together with friends or relatives?Three times a week07/25/2023How often do you attend taoism or anabaptism services?More than 4 times per year07/25/2023o you belong to any clubs or organizations such as taoism groups, unions, fraternal [...] or more drinks on one occasion?Never07/25/2023HQ-2AnswerDate RecordedTotal Lukcx520Finsalt [facility] [place] of Occupational Health - Occupational Stress QuestionnaireAnswerDate RecordedDo you feel stress - tense, restless, nervous, or anxious, or unable to sleep at night because yourmind is troubled all the time - these days?Only a byluzq4607/25/2023Exercise Vital Sign AnswerDate RecordedOn average, how many [...] part of a household?No03/14/2025hildcareAnswerDate RecordedDo problems getting childcare aide make 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 to work or study?No12/04/2024 EmploymentAnswerDate RecordedDo you need help finding a local career center and/or a training program?No12/04/2024Hunger ScreeningAnswerDate RecordedWithin the past 12 months we worried whether our food would run out before we got money to buy more.Patient Kvxutyvh56/18/2025Within the past 12 months the food we bought just didn't last and we didn't have money to get more.Patient Declined 03/14/2025Purpose - LifeAnswerDate RecordedI have a purpose and direction in my life.Strongly Agree07/25/2023CommentsNoSex and Gender InformationValue Date RecordedSex Assigned at MuuvyLvslja12/10/2021 8:51 AM EDTLegal SexFemale 02/16/2017 2:26 PM EDTGender GdfyhxpnGfzqwn90/10/2021 8:51 AM EDTSexual AizhzztoespCkzogcjy70/02/2023 8:29 PM ESTdocumented as of this encounter Miscellaneous Notes * Telephone Encounter - Michael Steiner DO - 03/10/2025 12:00 PM EST Patient with documented esophageal ulcers by EGD and biopsy. Needs misoprostol for gastric protection documented in this encounter Plan of Treatment DateTypeDepartmentCare Team (Latest Contact Info)Ipvekhlcpag78/12/2025 7:45 AM ESTAppointment [facility] [address] [place] [address] documented as of this encounter Goals GoalPatient Goal TypeAssociated ProblemsRecent ProgressPatient-Stated?Author home Jimena Wilson LSW Note: Evaluation of progress towards goal: feeling better documented as of this encounter Visit Diagnoses Diagnosis Spinal stenosis of lumbar region with neurogenic claudication Ulcer of esophagus with bleeding documented in this encounter Additional Health Concerns AssessmentNoted TimePHQ-9 Depression Total Score: 12:36 PM EDT documented as of this encounter Care Teams Team MemberRelationshipSpecialtyStart DateEnd Date Michael Steiner DO [address] [place] [address] PCP - GeneralInternal Medicine12/17/23documented as of this encounter
--- OUTSIDE RECORDS SUMMARY | 2025-03-17 15:50 | XMS_ITS | Encounter Summary ---
Author Organization [facility] tem Address [facility] [place]-[id number] [address] [place] [address] Care Team Providers Care Cutting And Splicing Supervisor Name Role Phone Michael Steiner DO Primary Care Provider [phone] Encounter Details DateTypeDepartmentCare Team (Latest Contact Info)Zuohiojvdcf67/18/2025Travel Social History Tobacco UseTypesPacks/DayYears UsedDateSmoking Tobacco: LndlqtObpcypcosi897 09/1981 - mokeless Tobacco: Never Comments:5-6 cigerettes a da y Alcohol UseStandard Drinks/WeekCommentsNot Currently0 (1 standard drink = 0.6 oz pure alcohol)last use 15 years agoAHC UtilitiesAnswerDate RecordedIn the past 12 months has the [employer], gas, oil, or water [employer] threatened to shut off services in your home?No12/04/2024Social Connection and Isolation PanelAnswer Date RecordedIn a typical week, how many times do you talk on the phone with family, friends, or neighbors?Three times a week07/25/2023How often do you get together with friends or relatives?Three times a week07/25/2023How often do you attend samaritan or church services?More than 4 times per year07/25/2023o you belong to any clubs or organizations such as samaritan groups, unions, fraternal [...] or more drinks on one occasion?Never07/25/2023HQ-2AnswerDate RecordedTotal Wfsic18005/15/2024Finmount[facility] medical center [place] of Occupational Health - Occupational Stress QuestionnaireAnswerDate RecordedDo you feel stress - tense, restless, nervous, or anxious, or unable to sleep at night because yourmind is troubled all the time - these days?Only a jzrjey1407/25/2023Exercise Vital Sign AnswerDate RecordedOn average, how many [...] stay in as a part of a household?03/14/2025hildcareAnswerDate RecordedDo problems getting children's 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 make 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 to work or study?No12/04/2024 EmploymentAnswerDate RecordedDo you need help finding a local career center and/or a training program?12/04/2024Hunger ScreeningAnswerDate RecordedWithin the past 12 months we worried whether our food would run out before we got money to buy more.Patient Mcbadqku73/19/2025Within the past 12 months the food we bought just didn't last and we didn't have money to get more.Patient Declined 03/15/2025Purpose - LifeAnswerDate RecordedI have a purpose and direction in my life.Strongly Agree07/25/2023CommentsNoSex and Gender InformationValue Date RecordedSex Assigned at UktgmPjxixi33/10/2021 8:51 AM EDTLegal SexFemale 02/16/2017 2:26 PM EDTGender EruieilvHtbdrd35/10/2021 8:51 AM EDTSexual InsjasonyonUdbkgtrg60/02/2023 8:29 PM ESTdocumented as of this encounter Plan of Treatment DateTypeDepartmentCare Team (Latest Contact Info)Ltqeeoiakax93/12/2025 7:45 AM ESTAppointment [facility] - [facility] [address] [place] [address] documented as of this encounter Goals GoalPatient Goal TypeAssociated ProblemsRecent ProgressPatient-Stated?Author home Jimena Wilson LSW Note: Evaluation of progress towards goal: feeling better documented as of this encounter Visit Diagnoses Not on filedocumented in this encounter Additional Health Concerns AssessmentNoted TimePHQ-9 Depression Total Score: 12:36 PM EDT documented as of this encounter Care Teams Team MemberRelationshipSpecialtyStart DateEnd Date Michael Steiner DO [address] [place] [address] PCP - GeneralInternal Medicine12/17/23documented as of this encounter
--- OUTSIDE RECORDS SUMMARY | 2025-03-17 15:50 | XMS_ITS | Encounter Summary ---
Author Organization [facility] tem Address [id number] [address] [place] [address] Care Team Providers Care Scorer Helper Name Role Phone Obdulia Michael Janae CABRERA Primary Care Provider [phone] Reason for Visit * ReasonCommentsMed Change Request Encounter Details DateTypeDepartmentCare Team (Latest Contact Info)Ygmkvbzgwkv40/21/2025RefSt[facility] [address] [place] [phone] Risa Summers MD [address] [place] [address] Social History Tobacco UseTypesPacks/DayYears UsedDateSmoking Tobacco: AithcjMugolwakrh560 09/1981 - mokeless Tobacco: Never Comments:5-6 cigerettes a da y Alcohol UseStandard Drinks/WeekCommentsNot Currently0 (1 standard drink = 0.6 oz pure alcohol)last use 15 years agoAH UtilitiesAnswerDate RecordedIn the past 12 months has the [employer], gas, oil, or water [employer] threatened to shut off services in your home?No12/04/2024Social Connection and Isolation PanelAnswer Date RecordedIn a typical week, how many times do you talk on the phone with family, friends, or neighbors?Three times a week07/25/2023How often do you get together with friends or relatives?Three times a week07/25/2023How often do you attend jehovah's witness or oriental orthodox services?More than 4 times per year07/25/2023o you belong to any clubs or organizations such as jehovah's witness groups, unions, [...] or more drinks on one occasion?Never07/25/2023HQ-2AnswerDate RecordedTotal Ejavh76305/15/2024Fin[facility] [place] of Occupational Health - Occupational Stress QuestionnaireAnswerDate RecordedDo you feel stress - tense, restless, nervous, or anxious, or unable to sleep at night because yourmind is troubled all the time - these days?Only a ytocoa5807/25/2023Exercise Vital Sign AnswerDate RecordedOn average, how many [...] stay in as a part of a household?No5ChildcareAnswerDate RecordedDo problems getting child development professor make 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 to work or study?No12/04/2024 EmploymentAnswerDate RecordedDo you need help finding a local career center and/or a training program?No12/04/2024Hunger ScreeningAnswerDate RecordedWithin the past 12 months we worried whether our food would run out before we got money to buy more.Patient Wacsccgg96/19/2025Within the past 12 months the food we bought just didn't last and we didn't have money to get more.Patient Declined 03/15/2025Purpose - LifeAnswerDate RecordedI have a purpose and direction in my life.Strongly Agree07/25/2023CommentsNoSex and Gender InformationValue Date RecordedSex Assigned at IlpxwXndbjp24/10/2021 8:51 AM EDTLegal SexFemale 02/16/2017 2:26 PM EDTGender NadvtclyTcmopz31/10/2021 8:51 AM EDTSexual CualwrtalpgUkvbffzy58/02/2023 8:29 PM ESTdocumented as of this encounter Plan of Treatment DateTypeDepartmentCare Team (Latest Contact Info)Qwoqzhtzxid99/12/2025 7:45 AM ESTAppointment [facility] - [facility] [address] [place] [address] documented as of this encounter Goals GoalPatient Goal TypeAssociated ProblemsRecent ProgressPatient-Stated?Author home Jimena Wilson LSW Note: Evaluation of progress towards goal: feeling better documented as of this encounter Visit Diagnoses Not on filedocumented in this encounter Additional Health Concerns AssessmentNoted TimePHQ-9 Depression Total Score: 1:44 PM EST documented as of this encounter Care Teams Team MemberRelationshipSpecialtyStart DateEnd Date Michael Steiner DO [address] [place] [address] PCP - GeneralInternal Medicine12/17/23documented as of this encounter
--- OUTSIDE RECORDS SUMMARY | 2025-03-17 15:50 | XMS_ITS | Encounter Summary ---
Author Organization [facility] tem Address [id number] [address] [place] [address] Care Team Providers Care Licensed Practical Vocational Nurse Name Role Phone Michael Steiner DO Primary Care Provider [phone] Reason for Visit * ReasonCommentsMed Change Request Encounter Details DateTypeDepartmentCare Team (Latest Contact Info)Wpddsqsygwj09/14/2025Refill [facility] Physicians Internal Medicine - Family Medicine [address] [place] [address] Michael Steiner DO [address] [place] [address] Spinal stenosis of lumbar region with neurogenic claudication; Ulcer of esophagus with bleeding Social History Tobacco UseTypesPacks/DayYears UsedDateSmoking Tobacco: WeralwZqyqpsloxx289 09/1981 - mokeless Tobacco: Never Comments:5-6 cigerettes a da y Alcohol UseStandard Drinks/WeekCommentsNot Currently0 (1 standard drink = 0.6 oz pure alcohol)last use 15 years agoAH UtilitiesAnswerDate RecordedIn the past 12 months has the [employer], gas, oil, or water [employer] threatened to shut off services in your home?No12/04/2024Social Connection and Isolation PanelAnswer Date RecordedIn a typical week, how many times do you talk on the phone with family, friends, or neighbors?Three times a week03/30/2024How often do you get together with friends or relatives?Three times a week07/25/2023How often do you attend adventist or moravian services?More than 4 times per year07/25/2023o you belong to any clubs or organizations such as adventist groups, unions, fraternal [...] or more drinks on one occasion?Never07/25/2023HQ-2AnswerDate RecordedTotal Ztimx207Finblue mountain hospital, inc. [place] of Occupational Health - Occupational Stress QuestionnaireAnswerDate RecordedDo you feel stress - tense, restless, nervous, or anxious, or unable to sleep at night because yourmind is troubled all the time - these days?Only a unhhvq5707/25/2023Exercise Vital Sign AnswerDate RecordedOn average, how many [...] of a household?No03/14/2025hildcareAnswerDate RecordedDo problems getting children's entertainer make 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 to work or study?No12/04/2024 EmploymentAnswerDate RecordedDo you need help finding a local career center and/or a training program?No12/04/2024Hunger ScreeningAnswerDate RecordedWithin the past 12 months we worried whether our food would run out before we got money to buy more.Patient Clxbqftf49/18/2025Within the past 12 months the food we bought just didn't last and we didn't have money to get more.Patient Declined 03/14/2025Purpose - LifeAnswerDate RecordedI have a purpose and direction in my life.Strongly Agree07/25/2023CommentsNoSex and Gender InformationValue Date RecordedSex Assigned at LaysrHtyozr32/10/2021 8:51 AM EDTLegal SexFemale 02/16/2017 2:26 PM EDTGender WxjseawdFctpne65/10/2021 8:51 AM EDTSexual AesmuptxfbiPfwumyhh62/02/2023 8:29 PM ESTdocumented as of this encounter Miscellaneous Notes * Telephone Encounter - Michael Steiner DO - 03/10/2025 4:24 PM EST Duplicate request documented in this encounter Plan of Treatment DateTypeDepartmentCare Team (Latest Contact Info)Lojerjcnoop42/12/2025 7:45 AM ESTAppointment [facility] [address] [place] [address] documented as of this encounter [...] DateEnd Date Michael Steiner DO [address] [place] [id number] PCP - GeneralInternal Medicine12/17/23documented as of this encounter
--- OUTSIDE RECORDS SUMMARY | 2025-03-17 15:50 | XMS_ITS | Encounter Summary ---
Author Organization [facility] tem Address [id number] [place] [address] Care Team Providers Care Automation/Controls Manager Name Role Phone Michael Steiner DO Primary Care Provider [phone] Reason for Visit * ReasonCommentsMed Change Request Encounter Details DateTypeDepartmentCare Team (Latest Contact Info)Patagxcqwzr24/14/2025Refill [facility] Internal [facility] - Family Medicine [address] [place] [address] Michael Steiner DO [address] [place] [address] Spinal stenosis of lumbar region with neurogenic claudication; Ulcer of esophagus with bleeding Social History Tobacco UseTypesPacks/DayYears UsedDateSmoking Tobacco: EfuyppAodmxzibtu412 09/1981 - mokeless Tobacco: Never Comments:5-6 cigerettes a da y Alcohol UseStandard Drinks/WeekCommentsNot Currently0 (1 standard drink = 0.6 oz pure alcohol)last use 15 years agoAH UtilitiesAnswerDate RecordedIn the past 12 months has the [employer], gas, oil, or water [employer] threatened to shut off services in your home?No12/04/2024Social Connection and Isolation PanelAnswer Date RecordedIn a typical week, how many times do you talk on the phone with family, friends, or neighbors?Three times a week03/30/2024How often do you get together with friends or relatives?Three times a week07/25/2023How often do you attend temple or bahai services?More than 4 times per year07/25/2023o you belong to any clubs or organizations such as temple groups, unions, fraternal [...] care, and heating?Not very hard 12/04/2024PHQ-2AnswerDate RecordedTotal Bfoje963[facility] [place] [facility] - Occupational Stress QuestionnaireAnswerDate RecordedDo you feel stress - tense, restless, nervous, or anxious, or unable to sleep at night because yourmind is troubled all the time - these days?Only a xprwsg0607/25/2023 Exercise Vital SignAnswerDate RecordedOn average, how many [...] part of a household?No12/04/2024hildcareAnswerDate RecordedDo problems getting special needs child caregiver make 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 to work [...] and Gender InformationValue Date RecordedSex Assigned at IzossPqpdqs34/10/2021 8:51 AM EDTLegal SexFemale 02/16/2017 2:26 PM EDTGender AsgwgebiEdhdpz41/10/2021 8:51 AM EDTSexual TsnbzymdovuQemwslxt95/02/2023 8:29 PM ESTdocumented as of this encounter Plan of Treatment DateTypeDepartmentCare Team (Latest Contact Info)Nsgqpqfoizr77/12/2025 7:45 AM ESTAppointment [facility] [address] [place] [address] documented as of this encounter [...] DateEnd Date Michael Steiner DO [address] [place] [address] PCP - GeneralInternal Medicine12/17/23documented as of this encounter
--- OUTSIDE RECORDS SUMMARY | 2025-03-17 15:50 | XMS_ITS | Clinical Summary ---
Author Organization [facility] Address [address] [place] [address] Care Team Providers Care Computer Systems Engineer Name Role Phone Michael Steiner MD Primary Care Provider [phone] Allergies Active AllergyReactionsCriticalityNoted DmcnBvkqedwnMkzfogotEsmwaq26/21/2025 Other Reaction(s): Other (See Comments) Terrible dreams QmhduphcZxythdyyyzcuniDmqusi51/05/2017 Other Reaction(s): Other (See Comments) I hallucinate This is not a true allergy PgtbxsoxvwlReazlrssmlaEllw48/12/2014 Swelling of Lip/Tongue/Throat Other Reaction(s): Swelling of Lip/Tongue/Throat Medications MedicationSigDispense [...] tablet Take 15 mg by mouth at gotarun9301/29/2024ctive celecoxib (CeleBREX) 200 MG capsule 02/22/2024ctive hydrOXYzine [...] ferrous sulfate 325 (65 Fe) MG tablet Active topiramate (Topamax) 100 MG tablet TAKE 1 TABLET (100 MG TOTAL) BY MOUTH IN THE MORNING AND AT BEDTIME FOR 90 DAYS. 4Active methocarbamol (Robaxin) 750 MG tablet TAKE 1 TABLET BY MOUTH EVERY 12 HOURS FOR 30 DAYS for 30Active albuterol HFA 90 mcg/act inhaler Indications:Chronic obstructive pulmonary disease, unspecified COPD type (HCC) Inhale 2 puffs every 4 (four) hours if needed for wheezing 18 g tive diclofenac-miSOPROStol (Arthrotec 50) 50-0.2 MG EC tablet TAKE 1 TABLET BY MOUTH IN THE MORNING AND BEFORE BEDTIMEActive MZN-Okun-NkFpth-MgHydr-Simeth (First-Mouthwash BLM) suspension Take 5 mL by mouth 4 (four) times a day as ugspwg9101/10/2025tive furosemide (Lasix) 40 MG tablet Take 40 mg by mouth Daily5Active gabapentin (Neurontin) 300 MG capsule Take 300 mg by mouth in the morning and 300 mg in the evening and 300 mg before bedtime.02/23/2025tive guaiFENesin (Mucinex) 600 MG 12 hr tablet Take 600 mg by mouth in the morning and 600 mg in the evening.12/06/2024tive metoprolol succinate XL (Toprol-XL) 25 MG 24 hr tablet Take 25 mg by mouth at kuchvmd9411/28/2024tive ondansetron ODT (Zofran-ODT) 4 MG disintegrating tablet DISSOLVE 1 TABLET (4 MG TOTAL) ON THE TONGUE EVERY 8 HOURS NEEDED FOR NAUSEA FOR UP TO 10 DOSES02/09/2025tive potassium chloride CR (K-Tab) 20 MEQ ER tablet TAKE 1 TABLET (20 MEQ TOTAL) BY MOUTH IN THE WOXNSXD2902/21/2025tive propranolol (Inderal) 40 MG tablet TAKE 1 TABLET (40 MG TOTAL) BY MOUTH IN THE MORNING AND BEFORE PMAHNYL2711/08/2024 Active valsartan (Diovan) 40 MG tablet Take 40 mg by mouth in the morning.5Active Trintellix 10 MG tablet Take 1 tablet by mouth Daily01/04/2025tive Mdrdgna-Blevoueypap-Keavxekylq (Breztri Aerosphere) 160-9-4.8 MCG/ACT aerosol Indications:Chronic obstructive pulmonary disease, unspecified COPD type (HCC) Inhale 2 puffs in the morning and 2 puffs before bedtime. 10.7 g tive Aacyzik-Nxfgrrzctpq-Gzyzsjytdz (500 Luchadoresztri Aerosphere) 160-9-4.8 MCG/ACT aerosol Indications:Chronic obstructive pulmonary disease, unspecified COPD type (HCC) Inhale 2 puffs in the morning and 2 puffs before bedtime. 10.7 g Discontinued(Reorder) Active Problems ProblemNoted DateDiagnosed DateAcute pulmonary embolism without acute cor rcshpngju02/03/2024losed wedge compression fracture of T6 vertebra with routine gqkdcar5208/28/2023hronic respiratory failure with hypoxia and hypercapnia 07/25/2023annabis use disorder, mild, abuse05/28/2023Major depressive disorder 05/28/2023Morbid (severe) obesity due to excess wwbexebx12/04/2024Muscle weakness (generalized)04/30/2023hronic obstructive pulmonary disease, txaiapasuhf83/03/1114Gccjuhrwecn26/03/2024Iron deficiency anemia, unspecified 04/29/2023Migraine, unspecified, not intractable, without status migrainosus 04/29/2023anic sikbwwek89/03/2024Vitamin D deficiency, iqqukfcklyc96/03/2024 Bygokmegwic70/27/2023ipolar 2 disorder, major depressive rebgkwu8510/21/2022ERD (gastroesophageal reflux disease)10/21/2022Essential puredrlofxdd45/02/2023Hx of ltrixebvdggqbg88/02/2023OSA treated with BiPAP07/31/2022Liver ybnnrmc4404/15/2022 Chronic heart failure with preserved ejection jlknhuke13/03/2022Hyperglycemia 08/14/2020ow back pain08/14/2020NSTEMI (non-ST elevated myocardial infarction) 01/09/20208460Ajeathd36/03/2016Borderline personality /03/2016PTSD (post- traumatic stress disorder)08/28/2015Chronic dzvmejhw25/12/2015CAD S/P percutaneous coronary /12/2014 Overview (01/22/2024): Dr. Vickers at [place] in [place] did PCI with bare metal stent placement 03/2010 Resolved Problems ProblemNoted DateDiagnosed DateResolved DateAtherosclerotic heart disease of [place] coronary artery with other forms of angina iwhxrhkg44 Overview (03/08/2025): Noted by JULIANE Cardoso DO last documented on 20240307 Chronic obstructive pulmonary disease with acute hwwcniushqvn90/12/2025 03/08/2025 Overview (03/08/2025): Noted by [facility] last documented on 20231217 Chronic kidney disease, stage 3a Overview (03/08/2025): Noted by JULIANE Cardoso DO last documented on 20240307 Unspecified dementia, unspecified severity, with mood jsydwdkiuzu98/12/2025 03/08/2025 Overview (03/08/2025): Noted by [facility] last documented on 20231217 Esophageal ulcerHiatal iftbcr06Microcytic gfuhgi51ute on chronic respiratory failure with hypoxia and mgyufortzgl56History of four vessel coronary artery bypass graftNonrheumatic tricuspid valve erxgxmgzvhcoz86/04/2025 03/08/2025Pulmonary qmemihhhbsla91Ventricular tachycardia Overview (09/20/2024): Documented on 08/23/2020 Arthritis of left sacroiliac jointStage 3a chronic kidney efaougq68Weakness02/Obesity with body mass index 30 or yashfuw64Psoriasis, vhyrhjjcozq23/06/2024 03/15/2024Unspecified dementia, mild, without behavioral disturbance, psychotic disturbance, mood disturbance, and lolmqxk60OVID-19004/29/2023 03/15/2024ependence on other enabling machines and zzevwgi31 Personal history of nicotine iejcrqkwjj31neumonia, unspecified motonihg07olyneuropathy, cvvmsqyjvzb70/03/2024 03/15/2024resence of aortocoronary bypass graftSolitary pulmonary znsrdh83HyperlipidemiaNicotine oxhuotfuuz96Difficulty in walking, not elsewhere classified Former truwji39igarette nicotine dependence in vglniodoz44therosclerosis of [place] coronary artery of [place] heart without angina gqypgfcl12 Encounters DateTypeDepartmentCare DeubXhwqslvelsp73/14/2025bstract [facility] [address] [place] [address] Sydnie Guerrero DO 03/08/2025 3:15 PM ESTOffice Visit [facility] [address] [place] [address] Sydnie Guerrero DO Chronic obstructive pulmonary disease, unspecified COPD type (HCC) (Primary Dx); Chronic respiratory failure with hypoxia and hypercapnia (HCC); BONY (obstructive sleep apnea)03/08/2025amboo flowsheet [facility] [address] [place] [address] Sydnie Guerrero, DO 02/08/2025[facility]phone [facility] [address] [place] [facility] [place] [phone] Sydnie Guerrero, DO 01/25/2025Telephone [facility] [address] [place] [phone] Sydnie Guerrero, DO 01/18/2025Telephone [facility] [address] [place] [address] Patricia Mcclure MA 01/03/2025Telephone [facility] [address] [place] [phone] Sydnie Guerrero, DO from Last 3 Months Immunizations ImmunizationAdministration DatesNext DuePPD Test05/12/2023,05/12/2023,04/30/2023 ,04/30/2023 Family History Medical HistoryRelationNameCommentsHeart diseaseMotherBettyHyperlipidemiaMother BettyRelationNameStatusCommentsFatherAliveMotherBettyDeceased Social History Tobacco UseTypesPacks/DayYears UsedDateSmoking Tobacco: FormerCigarettesQuit: 202mokeless Tobacco: Former Tobacco Cessation:Counseling Given: Not Answered Alcohol UseStandard Drinks/WeekCommentsNot Currently0 (1 standard drink = 0.6 oz pure alcohol)CommentsUnknownSex and Gender InformationValueDate Recorded Sex Assigned at BirthNot on fileLegal FynLfcrvm93/15/2023 11:01 PM EDTGender IdentityNot on fileSexual OrientationNot on file Last Filed Vital Signs Vital SignReadingTime TakenCommentsBlood Fwhtweve424/7203/08/2025 3:19 PM EST Ytojv673603/08/2025 3:19 PM ESTTemperature--Respiratory Rate--Oxygen Lzkoqyucsq36% 03/08/2025 3:19 PM ESTInhaled Oxygen Concentration--Rnoqgq141 kg (244 lb) 03/08/2025 3:19 PM JGHIqwxiy599.3 cm (5' 9 )03/08/2025 3:19 PM ESTBody Mass Index36.03105/08/2024 3:19 PM EST Plan of Treatment DateTypeDepartmentCare Team (Latest Contact Info)Qdnladukchg03/04/2026 3:30 PM ESTOffice Visit [facility] [address] [place] [phone] Sydnie Guerrero, DO [address] [place] [address] Insurance Care Teams Team MemberRelationshipSpecialtyStart DateEnd Date Michael Steiner MD [address] [place] [address] [facility]/11/23
--- OUTSIDE RECORDS SUMMARY | 2025-03-17 15:50 | XMS_ITS | Encounter Summary ---
Author Organization [facility] Address [address] [place] [address] Care Team Providers Care Calender Machine Operator Name Role Phone Michael Steiner MD Primary Care Provider [phone] Encounter Details DateTypeDepartmentCare Team (Latest Contact Info)Gzfaatydpku11/12/2025amboo flowsheet [facility] [address] [place] [address] Sydnie Guerrero, DO [address] [place] [address] Social History Tobacco UseTypesPacks/DayYears UsedDateSmoking Tobacco: FormerCigarettesQuit: mokeless Tobacco: FormerAlcohol UseStandard Drinks/WeekCommentsNot Currently0 (1 standard drink = 0.6 oz pure alcohol)CommentsUnknownSex and Gender InformationValueDate RecordedSex Assigned at BirthNot on fileLegal PqbAophkw83/15/2023 11:01 PM EDTGender IdentityNot on fileSexual OrientationNot on filedocumented as of this encounter Plan of Treatment DateTypeDepartmentCare Team (Latest Contact Info)Lucpqeaztaw20/04/2026 3:30 PM ESTOffice Visit [facility] [address] [place] [address] Sydnie Guerrero, DO [address] [place] [address] documented as of this encounter Visit Diagnoses Not on filedocumented in this encounter Care Teams Team MemberRelationshipSpecialtyStart DateEnd Date Michael Steiner MD [address] [place] [address] PCP - GeneralInternal Medicine08/11/23documented as of this encounter
--- OUTSIDE RECORDS SUMMARY | 2025-03-17 15:53 | XMS_ITS | CCD ---
Author Organization [facility]Syn[facility] Care Team Providers Care [employer] Name Role Phone Hercher, Nadege L Unavailable [...] Unavailable Rajni Steiner MD Primary Care Provider Yusunshine CABRERA, Rajni [...] Care Unavailable Yuhas DORajni Primary Care Provider [phone] Dk MIJARES, Andrius Zee Attending Unavailable Dk [...] Care Unavailable DEBDOUGIE, IMAD M Attending Unavailable VICKYSRAJNI Referring Unavailable VICKYSRAJNI Primary Care Unavailable VICKYS, RAJNI Cardoso Primary Care Unavailable JUAN BRUNER Attending Unavailable HARIRI, IMAD M Referring Unavailable VICKYS, RAJNI Cardoso Primary Care Unavailable VICKYS, RAJNI Cardoso Primary Care Unavailable ARTURO STOKES Attending Unavailable Allergies Allergy ClassificationReported Allergen(s)Allergy TypeDate of OnsetReaction(s) Facility (1 source)morphine; Translations: [Morphine Sulfate][facility] (2 sources)penicillin; Translations: [penicillin][facility] (20 sources)Morphine; Translations: [morphine]Drug Zenpcam65-16-2822 Hallucinations, Other (See Comments)[facility] (20 sources)Penicillins; Translations: [Penicillins]Allergy to substance 58-00-2853SiljjxeccxlLbhlnfmloC[facility] (18 sources)fentaNYL; Translations: [FENTANYL]Drug Rsmzzeb76-76-8729Ubhqx (See Comments)[facility] Medications Current Medications MedicationDrug Class(es)DatesSig (Normalized)Sig (Original)acetaminophen 325 mg oral tablet (20 sources)Start: 71-04-2242vyus 2 tablets by mouth every four hours as needed for pain and headacheacetaminophen (TYLENOL) 325 mg tablet Take 2 tablets (650 mg total) by mouth every 4 (four) hours as needed for pain or headaches. 30 tablet 07/27/2023 ActiveStart: 07-25-2023 End: 53-05-2435xlxu 1 tablet by mouth every four hours as needed for headache and igxy290 mg, oral, Every 4 hours PRN, headaches, moderate pain - pain scale 4-6, Starting on 07/25/23at 210take 1 tablet by mouth every four hours as needed for painacetaminophen (Tylenol) 325 MG tablet Take 325 mg by mouth every 4 (four) hours if needed for mild pain [id number] 200 actuat albuterol 0.09 mg/actuat metered dose inhaler (20 sources)beta2-Adrenergic AgonistStart: 09-21-2024 End: 28-55-6333vxtr 2 puff(s) by inhalation every four hours [...] oral tablet (20 sources)Atypical AntipsychoticStart: 07-27-2023 End: 06-65-1173NGMVqlzxolid (ABILIFY) tablet 15 mgStart: 05-13-2023 End: 58-87-2401yjac 1 tablet by mouth once dailyARIPiprazole (ABILIFY) 15 mg tablet Take 1 tablet (15 mg total) by mouth nightly. 05/13/2023 ActiveStart: 14-99-3637sjzj 10 mg by mouth once daily at bedtimeAripiprazole Active 10 MG PO Daily at bedtime June 22, 2018 1:00amStart: 35-96-9926lnro 5 mg by mouth once dailyAripiprazole Active 5 MG PO Daily June 08, 2018 1:00am End: 85-53-4502fvaf 1 tablet by mouth once dailyARIPiprazole (Abilify) 15 MG disintegrating tablet Take 15 mg by mouth Daily 03/17/2024 Discontinued (Med list cleanup) End: 09-91-6605vkaw 2 tablets by mouth once dailyARIPiprazole (ABILIFY) 10 mg tablet Take 2 tablets (20 mg total) by mouth nightly. 0 06/01/2023 Discontinued (Duplicate Listing)take 1 tablet by mouth every twenty-four hoursAbilify 30 MG 1 tablet Orally Once a day Activeatorvastatin 80 mg oral tablet (20 sources)HMG-CoA Reductase InhibitorStart: 72-91-5884hena 1 tablet by mouth in the morningatorvastatin (LIPITOR) 80 mg tablet Indications: Atherosclerosis of lime coronary artery of lime heart without angina pectoris , Hx of hyperlipidemia Take 1 tablet (80 mg total) by mouth in the morning. 90 tablet 3 04/26/2024 ActiveStart: 34-22-4408qock 1 tablet by mouth in the morning atorvastatin (LIPITOR) 80 mg tablet Indications: Atherosclerosis of lime coronary artery of lime heart without angina pectoris , Hx of hyperlipidemia TAKE 1 TABLET (80 MG TOTAL) BY MOUTH IN THE MORNING 90 tablet 3 04/09/2024 ActiveStart: 07-26-2023 End: 41-59-1853qmkg 80 mg by mouth once daily80 mg, oral, Daily, First dose on 07/26/23 at 0900, Look-alike/sound-alike medication - verify indication for use.Start: 04-09-2023 End: 74-10-0796kqxp 1 tablet by mouth in the morningatorvastatin (LIPITOR) 80 mg tablet Indications: Atherosclerosis of lime coronary artery of lime heart without angina pectoris , Hx of hyperlipidemia Take 1 tablet (80 mg total) by mouth in the morning. 90 tablet 3 04/26/2024 Activebenztropine mesylate 0.5 mg oral tablet (1 source)Anticholinergic, AntihistamineStart: 90-09-9785szqk 0.5 mg by mouth every six hoursBenztropine Active 0.5 MG PO Q6H 60 June 22, 2018 1:48ys003 actuat budesonide 0.16 mg/actuat / formoterol fumarate 0.0048 mg/actuat / glycopyrrolate 0.009 mg/actuat metered dose inhaler (20 sources)Corticosteroid, beta2-Adrenergic AgonistStart: 60-10-6839vmpy 2 puff(s) by inhalation in the fvwmhezhgksafspxf-xxtufvgv-dibmsorxal (BREZTRI AEROSPHERE) 160-9-4.8 mcg/actuation HFA aerosol inhaler Indications: Chronic obstructive pulmonary disease, unspecified COPD type ([facility]-HCC) Inhale 2 puffs in the morning and 2 puffs before bedtime. 10.7 g 10 06/25/2023 Active End: 54-59-6564Lqyvywk-Glycopyrrol-Formoterol (Breztri Aerosphere) 160-9-4.8 MCG/ACT aerosol Inhale 09/21/2024 Discontinued (Reorder)celecoxib 200 mg oral capsule (20 sources)Nonsteroidal Anti-inflammatory DrugStart: 02-22-2024 End: 77-68-4306cclcbaoka (CeleBREX) 200 MG capsule 02/22/2024 Active cholecalciferol [...] ActiveclonazePAM 0.5 mg oral tablet (20 sources)BenzodiazepineStart: 65-45-3748pecm 1 tablet by mouth in the morning, then take 1 tablet by mouth at bedtimeclonazePAM (KlonoPIN) 0.5 mg tablet Take 1 tablet (0.5 mg total) by mouth in the morning and 1 tablet (0.5 mg total) before bedtime. 09/14/2023 ActiveStart: 07-26-2023 End: 57-22-0788lbgqucoGED (KlonoPIN) tablet 0.5 mgStart: 05-13-2023 End: 11-87-9184weugtjmWMD (KlonoPIN) 0.25 mg disintegrating tablet Dissolve 1 tablet (0.25 mg total) on tongue 2 (two) times a day as needed. 0 05/13/2023 ActiveStart: 05-13-2023 End: 92-20-5767ceduflhKHY (KlonoPIN) 0.25 mg disintegrating tablet Dissolve 2 tablets (0.5 mg total) on tongue 2 (two) times a day as needed. 05/13/2023 09/24/2023 Discontinued (Dose adjustment)Start: 01-07-2018 End: 10-04-0106ants 0.5 mg by mouth twice dailyClonazepam Discontinued 0.5 MG PO Twice daily January 07, 2018 12:00am January 18, 2018 11:12amtake 1 tablet by mouth every twenty-four hoursKlonoPIN 0.5 MG 1 tablet Orally Once a day Activediclofenac sodium 50 mg / miSOPROStol 0.2 mg delayed release oral tablet (6 sources)Nonsteroidal Anti-inflammatory Drug, Prostaglandin E1 AnalogStart: 69-04-8204qvsn 1 tablet by mouth in the morningdiclofenac-miSOPROStol (ARTHROTEC 50) 50-200 mg-mcg EC tablet Take 1 tablet by mouth in the morningand 1 tablet before bedtime. 60 tablet 2 01/04/2025 Wfnntpithgvq-kkxhlgiuo-bxk,al-simeth (FIRST-MOUTHWASH BLM) 57-562-144-40 mg/30mL mouthwash (6 sources)Start: 90-31-7443suft 5 mL by mouth four times daily as needed ztyamd-bymhhxzrm-ctg,al-simeth (FIRST-MOUTHWASH BLM) 47-421-601-40 mg/30mL mouthwash Indications: Stomatitis Take 5 mL by mouth 4 (four) times a day as needed for mucositis or mouth/gum irritation. 119 mL 1 01/10/2025 Activedoxepin hydrochloride 75 mg oral capsule (20 sources)Tricyclic Antidepressantdoxepin (SINEquan) 75 mg capsule Active End: 71-13-3653ajtc 3 capsules by mouth once dailydoxepin (SINEquan) 25 mg capsule Take 3 capsules (75 mg total) by mouth nightly. 0 06/01/2023 Discon tinued (Duplicate Listing)empagliflozin 10 mg oral tablet (20 sources)Sodium-Glucose Cotransporter 2 InhibitorStart: 04-12-2024 End: 59-83-6530pzfc 1 tablet by mouth in the morningJARDIANCE 10 mg tablet tablet Indications: Chronic heart failure with preserved ejection fraction (CMS- HCC) , Atherosclerosis of lime coronary artery of lime heart without angina pectoris TAKE 1 TABLET (10 MG) BY MOUTH IN THE MORNING 90 tablet 1 02/28/2025 ActiveStart: 09-01-2022 End: 38-57-1340svsq 1 tablet by mouth in the morningJARDIANCE 10 mg tablet tablet Indications: Chronic heart failure with preserved ejection fraction (CMS- HCC) , Atherosclerosis of lime coronary artery of lime heart without angina pectoris TAKE 1 TABLET (10 MG TOTAL) BY MOUTH IN THE MORNING 90 tablet 3 10/02/2023 Activetake 25 mg by mouth once dailyJARDIANCE 25 mg daily orally Activeezetimibe 10 mg oral tablet (20 sources)Dietary Cholesterol Absorption InhibitorStart: 07-08-2024 End: 56-60-5687tafd 1 tablet by mouth in the morningezetimibe (ZETIA) 10 mg tablet Indications: Atherosclerotic heart disease of lime coronary arterywith other forms of angina pectoris TAKE 1 TABLET (10 MG TOTAL) BY MOUTH IN THE MORNING 90 tablet Activefolic acid 1 mg oral tablet (1 source)Start: 76-44-4558vzve 1 mg by mouth once dailyFolic Acid Active 1 MG PO Daily June 22, 2018 1:00am12 hr guaiFENesin 600 mg extended release oral tablet (14 sources)Start: 87-49-9268uevr 1 tablet by mouth onceguaiFENesin (MUCINEX) 600 mg tablet extended release 12hr Take 1 tablet (600 mg total) by mouth every 12 (twelve) hours. 14 tablet 12/06/2024 ActivehydrOXYzine hydrochloride 25 mg oral tablet (20 sources)AntihistamineStart: 12-70-8444nbvf 1 tablet by mouth twice daily as needed for anxietyhydrOXYzine (ATARAX) 25 mg tablet Take 1 tablet (25 mg total) by mouth 2 (two) times a day as needed for anxiety. 12/06/2024 ActiveStart: 63-80-7507ghfg 1 tablet by mouth once dailyhydrOXYzine HCl (Atarax) 25 MG tablet Take 25 mg by mouth Daily 02/29/2024 ActiveStart: 47-75-3146jats 50 mg by mouth three times dailyHydroxyzine [...] oral tablet (20 sources)Mood Stabilizer, Anti-epileptic AgentStart: 89-95-0184rhzb 1 tablet by mouth in the morninglamoTRIgine (LaMICtal) 150 mg tablet Take 1 tablet (150 mg total) by mouth in the morning. 10/07/2023 ActiveStart: 07-26-2023 End: 48-77-4937cxkc 100 mg by mouth once sccas730 mg, oral, Daily, First dose on 07/26/23 at 0900, Look-alike/sound-alike medication - verify indication for use. End: 05-26-2447jaqv 4 tablets by mouth in the morninglamoTRIgine (LaMICtal) 25 mg tablet Take 4 tablets (100 mg total) by mouth in the morning. 0 06/01/2023 Discontinued (Dose adjustment)[place] (1 source)[place] Activelithium carbonate 450 mg extended release oral tablet (1 source)Start: 16-64-3418nzpg 900 mg by mouth once daily at bedtimeLithium Carbonate Active 900 MG PO Daily at bedtime 60 June 22, 2018 1:00am methocarbamol 750 mg oral tablet (8 sources)Muscle Relaxant End: 36-80-3739flbcycvvuszsj (Robaxin) 750 MG tablet TAKE 1 TABLET BY MOUTH EVERY 12 HOURS FOR 30 DAYS for 30 Pswlvp82 hr metoprolol succinate 25 mg extended release oral tablet (17 sources)beta-Adrenergic BlockerStart: 44-03-9579gbal 1 tablet by mouth once dailymetoprolol succinate XL (TOPROL XL) 25 mg 24 hr tablet Indications: Chronic heart failure with preserved ejection fraction (CMS-HCC) , Pulmonary hypertension ([facility]-HCC) , Nonrheumatic tricuspid valve regurgitation , Essential hypertension , Atherosclerosis of lime coronary artery of lime heart without angina pectoris , History of four vessel coronary artery bypass graft , NSTEMI (non-ST elevated myocardial infarction) ([facility]) Take 1 tablet (25 mg total) by mouth nightly. 30 tablet 11 11/28/2024 Activemirtazapine 45 mg oral tablet (3 sources)Start: 16-06-1483kjal 45 mg by mouth once daily at bedtimeMirtazapine Active 45 MG PO Daily at bedtime June 22, 2018 1:00amStart: 01-18-2018 End: 03-65-3285gmfw 45 mg by mouth at bedtimeMirtazapine Discontinued 45 MG PO Bedtime January 18, 2018 12:00am June 08, 2018 11:26amStart: 01-07-2018 End: 28-37-6180veqy 30 mg by mouth at bedtimeMirtazapine Discontinued 30 MG PO Bedtime January 07, 2018 12:00am January 18, 2018 11:12am24 hr nicotine 0.875 mg/hr transdermal system (2 sources)Cholinergic Nicotinic AgonistStart: 78-77-9127Penxmpwb Active 1 EACH TRANSDERML Daily June 22, 2018 1:00amStart: 01-18-2018 End: 56-33-9632Jwtdexyj Discontinued 1 EACH TRANSDERML Daily January 18, 2018 12:00am June 08, 2018 11:26amondansetron 4 mg disintegrating oral tablet (11 sources)Serotonin-3 Receptor AntagonistStart: 51-82-1666rcyz 1 tablet by mouth every eight hours as needed for nauseaondansetron ODT (ZOFRAN ODT) 4 mg disintegrating tablet Dissolve 1 tablet (4 mg total) on tongue every 8 (eight) hours as needed for nausea for up to 10 doses. 10 tablet 02/09/2025 Active End: 66-29-1494byge 1 tablet by mouth every eight hours as needed for nausea and vomitingondansetron (ZOFRAN) 4 mg tablet Take 1 tablet (4 mg total) by mouth every 8 (eight) hours as needed for nausea or vomiting. 0 07/27/2023 Discontinued (Stop Taking at Discharge)Oxygen (17 sources)oxygen Inhale 2 L/min continuously. Activepantoprazole 40 mg delayed release oral tablet (20 sources)Proton Pump InhibitorStart: 05-82-1750vetg 1 tablet by mouth once daily before breakfastpantoprazole (PROTONIX) 40 mg EC tablet Indications: Gastro-esophageal reflux disease without esophagitis TAKE 1 TABLET BY MOUTH EVERY DAY IN THE MORNING BEFORE BREAKFAST 90 tablet 02/24/2025 ActiveStart: 07-01-2023 End: 76-56-5549uwys 1 tablet by mouth once daily before breakfastpantoprazole (PROTONIX) 40 mg EC tablet Indications: Gastro-esophageal reflux disease without esophagitis Take 1 tablet (40 mg total) by mouth every morning before breakfast. 90 tablet 11/07/2024 02/24/2025 Discontinuedtake 2 tablets by mouth every twenty-four hoursPantoprazole Sodium 40 MG 2 tablets Orally Once a day Activepotassium chloride 20 meq extended release oral tablet (20 sources)Start: 67-70-7563bugkfkzki chloride (K-TAB,KLOR-CON) 20 mEq CR tablet Take [...] Activepregabalin 100 mg oral capsule (20 sources)Start: 39-90-0643dixs 1 capsule by mouth at bedtimepregabalin (LYRICA) 100 mg capsule Indications: Peripheral polyneuropathy Take 1 capsule (100 mg total) by mouth before bedtime. 12/06/2024 ActiveStart: 03-07-2024 End: 52-84-6317nesi 1 capsule by mouth at bedtimepregabalin (LYRICA) 100 mg capsule Indications: Peripheral polyneuropathy Take 1 capsule (100 mg total) by mouth before bedtime. 12/06/2024 ActiveStart: 01-26-2024 End: 05-11-0094zxhw 1 capsule by mouth in the morning, then take 1 capsule by mouth at bedtimepregabalin (LYRICA) 50 mg capsule Indications: Peripheral polyneuropathy Take 1 capsule (50 mg total) by mouth in the morning and 1 capsule (50 mg total) before bedtime. 60 capsule 01/26/2024 03/07/2024 Discontinued (Reorder)propranolol hydrochloride 40 mg oral tablet (20 sources)beta-Adrenergic BlockerStart: 10-07-2024 End: 21-56-0189npyp 1 tablet by mouth at bedtime, then take 1 tablet by mouth at bedtimepropranoloL (INDERAL) 40 mg tablet Take 1 tablet (40 mg total) by mouth in the morning and at bedtime. TAKE 1 TABLET (40 MG TOTAL) BY MOUTH IN THE MORNING AND BEFORE BEDTIME 11/08/2024 ActiveStart: 07-25-2023 End: 40-29-2199gqwd 40 mg by mouth twice daily40 mg, oral, 2 times daily, First dose on 07/25/23 at 2115, Look-alike/sound-alike medication - verify indication for use. End: 72-66-2239pyca 1 capsule by mouth every twenty-four hours at bedtime propranolol XL (Innopran XL) 80 MG 24 hr capsule Take 80 mg by mouth at bedtime Do not crush, chew,or split. Activetake 1 tablet by mouth every twelve hours Propranolol HCl 80 MG 1 tablet Orally Twice a day Activesalmon calcitonin 200 unt/actuat nasal spray (20 sources)CalcitoninStart: 09-09-2023 End: 78-63-1060bcqz 1 spray(s) nasal route in the morningcalcitonin, salmon, (Miacalcin) 200 UNIT/ACT nasal spray Administer 1 spray into affected nostril(s) in the morning. 09/09/2023 Activespironolactone 25 mg oral tablet (20 sources)Aldosterone AntagonistStart: 04-12-2024 End: 34-76-3932ajkr 1 tablet by mouth in the morningspironolactone (ALDACTONE) 25 mg tablet Indications: Chronic diastolic heart failure (CMS-HCC) Take1 tablet (25 mg total) by mouth in the morning. 90 tablet 3 02/06/2025 ActiveStart: 11-10-2022 End: 92-87-0611rcno 1 tablet by mouth in the morningspironolactone (ALDACTONE) 25 mg tablet Indications: Shortness of breath , Chronic heart failure with preserved ejection fraction (CMS-HCC) TAKE 1 TABLET (25 MG TOTAL) BY MOUTH IN THE MORNING 90 tablet 3 11/02/2023 ActiveSUMAtriptan 50 mg oral tablet (20 sources)Serotonin-1b and Serotonin-1d Receptor AgonistStart: 06-22-2023 End: 40-04-0018LTTToythpzu (IMITREX) 50 mg tablet TAKE 1 TABLET BY MOUTH DIRECTED 0 06/22/2023 ActiveStart: 10-16-2021 End: 74-27-6338IFRNhtilspn (IMITREX) 25 mg tablet Take by mouth as needed. 10/16/2021 09/24/2023 Discontinued (Duplicate Listing)SUMAtriptan (Imitrex) 25 MG tablet Take 25 mg by mouth 1 (one) time if needed for migraine May repeat dose once in 2 hours if no relief. Do not exceed 2 doses in 24 hours. Active topiramate 100 mg oral tablet (20 sources)Start: 01-04-2024 End: 87-60-8491azkg 1 tablet by mouth at bedtimetopiramate (Topamax) 100 MG tablet TAKE 1 TABLET (100 MG TOTAL) BY MOUTH IN THE MORNING AND AT BEDTIME FOR 90 DAYS. 03/30/2024 ActiveStart: 10-06-2023 End: 02-72-0483mgzz 1 tablet by mouth twice dailytopiramate (TOPAMAX) 50 mg tablet Indications: Spinal stenosis of lumbar region with neurogenic talib dication take 1 tablet by mouth twice a day for 90 days 180 tablet 01/01/2024 01/04/2024 Discontinuedtake 1 tablet by mouth twice dailytopiramate (TOPAMAX) 50 mg tablet TAKE 1 TABLET BY MOUTH TWICE A DAY FOR 30 DAYS Active End: 47-70-9148tbkm 1 tablet by mouth three times dailytopiramate (TOPAMAX) 25 mg tablet Take 1 tablet (25 mg total) by mouth 3 (three) times a day. 0 08/2023 Discontinued (Dose adjustment)torsemide 20 mg oral tablet (20 sources)Loop DiureticStart: 72-89-4003zara 4 tablets by mouth once daily torsemide (DEMADEX) 20 mg tablet Indications: Chronic diastolic heart failure (CMS-HCC) Take 4 tablets (80 mg total) by mouth daily. 120 tablet 11 02/21/2025 ActiveStart: 02-06-2025 End: 01-73-8346vdrb 2 tablets by mouth once dailytorsemide (DEMADEX) 20 mg tablet Indications: Chronic diastolic heart failure (CMS-HCC) Take 2 tablets (40 mg total) by mouth daily. 60 tablet 11 02/06/2025 02/21/2025 DiscontinuedStart: 12-15-2024 End: 34-34-5696ukqc 3 tablets by mouth once dailytorsemide (DEMADEX) 10 mg tablet Take 3 tablets (30 mg total) by mouth daily. 12/15/2024 02/06/2025 DiscontinuedStart: 79-62-2172mscy 3 tablets by mouth once daily as needed, then take 3 tablets by mouth once daily as neededtorsemide (DEMADEX) 20 mg tablet Indications: Chronic heart failure with preserved ejection fraction (CMS-HCC) , Pulmonary hypertension (CMS-HCC) , Nonrheumatic tricuspid valve regurgitation , Essential hypertension , Atherosclerosis of lime coronary artery of lime heart without angina pectoris, History of four vessel coronary artery bypass graft , NSTEMI (non-ST elevated myocardial infarction) (CMS-HCC) Take 3 tablets (60 mg total) by mouth daily. Take 3 tablets daily. May take take an additional tablet as needed for swelling 300 tablet 3 11/28/2024 ActiveStart: 04-12-2024 End: 16-85-6859rfto 4 tablets by mouth once daily in the morningtorsemide (DEMADEX) 20 mg tablet Indications: Chronic heart failure with preserved ejection fraction (CMS-HCC) Take 4 tablets in the AM by mouth daily 360 tablet 04/12/2024 07/07/2024 Discontinued (Therapy completed)Start: 82-99-2056cqtr 4 tablets by mouth once daily in the morningtorsemide (DEMADEX) 20 mg tablet Indications: Chronic heart failure with preserved ejection fraction (CMS-HCC) Take 4 tablets in the AM by mouth daily 03/07/2024 ActiveStart: 11-06-2023 End: 04-40-1261psba 4 tablets by mouth in the morning, [...] and Thursday 438 tablet 3 01/21/2024 ActiveStart: 95-81-5376rjll 2 tablets by mouth once dailytorsemide 40 mg tablet Take 80 mg by mouth daily. 08/29/2023 ActiveStart: 07-26-2023 End: 58-83-0537mfqevljny (DEMADEX) tablet 80 mgStart: 69-39-4401hcnh 4 tablets by mouth once daily as [...] EVENING PRN 540 tablet 1 05/29/2023 ActiveStart: 43-67-3805vvik 4 tablets by mouth in the morning, [...] 20 mg by mouth Daily Active End: 49-69-9252pmks 1 tablet by mouth three times dailytorsemide (DEMADEX) 10 mg tablet Take 1 tablet (10 mg total) by mouth 3 (three) times a day. 12/15/2024 Discontinuedtake 2 tablets by mouth once dailyTorsemide 40 MG 2 tablets Orally Once a day ActivetraZODone hydrochloride 100 mg oral tablet (2 sources)Serotonin Reuptake InhibitorStart: 99-49-0773zvhh 100 mg by mouth once daily at bedtimeTrazodone Active 100 MG PO Daily at bedtime June 22, 2018 1:00amStart: 01-18-2018 End: 61-92-7714zcpy 100 mg by mouth once daily at bedtimeTrazodone Discontinued 100 MG PO Daily at bedtime January 18, 2018 12:00am June 08, 2018 11:26amvalsartan 40 mg oral tablet (4 sources)Angiotensin 2 Receptor BlockerStart: 91-62-1286ddzv 1 tablet by mouth in the morningvalsartan (DIOVAN) 40 mg tablet Indications: Chronic diastolic heart failure (CMS-HCC) , Pulmonary hypertension (CMS-HCC) Take 1 tablet (40 mg total) by mouth in the morning. 30 tablet 11 02/06/2025 Activevitamin b12 1 mg oral tablet (20 sources)Vitamin N33Enfqb: 31-70-5317ohoj 1 tablet by mouth in the morning cyanocobalamin 1000 MCG tablet Indications: B12 deficiency TAKE 1 TABLET (1,000 MCG TOTAL) BY MOUTHIN THE MORNING 90 tablet 1 04/13/2024 ActiveVitamin D 50 MCG (1999 UT) (1 source)take 1 capsule by mouth once dailyVitamin D 50 MCG (1999 UT) 1 capsule Orally Once a day Activevortioxetine 10 mg oral tablet (20 sources)Start: 96-85-8858wkyd 1 tablet by mouth in the morningTRINTELLIX 10 mg tablet Take 1 tablet (10 mg total) by mouth in the morning. 10/03/2024 Active Completed/Discontinued Medications MedicationDrug Class(es)DatesSig (Normalized)Sig (Original)acetaminophen 325 mg / HYDROcodone bitartrate 5 mg oral tablet (15 sources)Opioid AgonistStart: 09-09-2023 End: 00-14-8618DAOQZadepgq-acetaminophen (NORCO) 5-325 mg per tablet Indications: Closed wedge compression fracture of T6 vertebra with routine healing Take 1 tablet by mouth 2 (two) times a day as needed for pain.Max Daily Amount: 2 tablets 60 tablet 10/01/2023 11/02/2023 Discontinued (Therapy completed)Start: 08-29-2023 End: 38-10-8124XTNTXtbgfss-acetaminophen (NORCO) 5-325 mg per tablet Indications: Closed [...] \[email or web address]\epic\EPIC_Reference\Orders\Respiratory Care Guidelines\CPG Bronchodilator 2020.pdfStart: 07-25-2023 End: 39-29-6627hhzkeglszyw-albuteroL (DUONEB) 0.5 mg-3 mg(2.5 mg base)/3 mL nebulizer solution 3 mLamitriptyline hydrochloride 100 mg oral tablet (9 sources)Tricyclic AntidepressantStart: 06-01-2023 End: 59-62-2340pflx 0.5 tablet by mouth once dailyamitriptyline (ELAVIL) 100 mg tablet Take 0.5 tablets (50 mg total) by mouth nightly. 0 06/01/2023 07/01/2023 Discontinued (Therapy completed)Start: 10-16-2021 End: 71-52-6805eacf 1 tablet by mouth once dailyamitriptyline (ELAVIL) 100 mg tablet Take 1 tablet (100 mg total) by mouth nightly. 0 10/16/2021 06/01/2023 Discontinuedapixaban 5 mg oral tablet (20 sources)Factor Xa InhibitorStart: 08-31-2023 End: 48-37-0328aufq 2 tablets by mouth twice daily, then take 1 tablet by mouth twice dailyELIQUIS DVT-PE TREAT 30D START 5 mg (74 tabs) tablets,dose pack tablet TAKE 2 TABLETS (10 MG) BY MOUTH 2 TIMES A DAY FOR 7 DAYS, THEN 1 TABLET 2 TIMES A DAY FOR 21 DAYS 08/31/2023 09/30/2023 DiscontinuedStart: 60-01-2558wxcl 2 tablets by mouth twice daily, then take 1 tablet by mouth twice dailyELIQUIS DVT-PE TREAT 30D START 5 mg (74 tabs) tablets,dose pack tablet TAKE 2 TABLETS (10 MG) BY MOUTH 2 TIMES A DAY FOR 7 DAYS, THEN 1 TABLET 2 TIMES A DAY FOR 21 DAYS 08/31/2023 ActiveStart: 08-29-2023 End: 09-38-7698bxdz 2 tablets by mouth twice daily, then take 1 tablet by mouth twice dailyEliquis DVT/PE Starter Pack 5 MG tablet therapy pack TAKE 2 TABLETS (10 MG) BY MOUTH 2 TIMES A DAY FOR 7 DAYS, THEN 1 TABLET 2 TIMES A DAY FOR 21 DAYS 08/31/2023 03/17/2024 Discontinued (Med list cleanup)Start: 08-29-2023 End: 57-09-8276ssbm 1 tablet by mouth in the morning, [...] Inhibitor, Nonsteroidal Anti-inflammatory Drug Start: 07-26-2023 End: 76-98-0231dzft 81 mg by mouth once daily81 mg, oral, Daily, First dose on 07/26/23 at 0900, Do not crush or chew.brexpiprazole 4 mg oral tablet (1 source)Atypical AntipsychoticStart: 01-07-2018 End: 17-75-8516lsqr 1 tablet by mouth once daily in the morningBrexpiprazole (Rexulti) 4 mg tablet Discontinued 4 MG PO Every morning January 07, 2018 12:00amS2017 11:12ambusPIRone hydrochloride 10 mg oral tablet (1 source)Start: 01-18-2018 End: 29-29-5219soim 20 mg by mouth three times dailyBuspirone Discontinued 20 MG PO Three times daily 180 January 18, 2018 12:00am June 08, 2018 11:26amcefTRIAXone 1000 mg injection (1 source)Cephalosporin AntibacterialStart: 07-25-2023 End: 51-22-9476djtLFPHIpdi (ROCEPHIN) IVPB 1000 mg/50 mL in iso-osmotic dextrose (20 mg/mL premix)clindamycin 150 mg oral capsule (12 sources)Lincosamide Antibacterial End: 89-90-2234mcgk 1 capsule by mouth three times dailyclindamycin (CLEOCIN) 150 mg capsule Take 1 capsule (150 mg total) by mouth 3 (three) times a day. 0 11/02/2023 Discontinued (Therapy completed)cyclobenzaprine hydrochloride 10 mg oral tablet (20 sources)Muscle RelaxantStart: 12-24-2023 End: 20-98-4321bwpkvbclkxvmfrj (FLEXERIL) 10 mg tablet 12/24/2023 07/07/2024 Discontinued (Therapy completed)Start: 09-10-2023 End: 28-55-4033luqr 1 tablet by mouth twice daily as needed for pain cyclobenzaprine (Fexmid) 7.5 MG tablet Indications: Radiculopathy, lumbosacral region TAKE 1 TABLETBY MOUTH TWICE A DAY NEEDED FOR LOWER BACK PAIN 60 tablet 1 09/10/2023 01/12/2024 Discontinued (Med list cleanup)Start: 27-85-1832ersn 1 tablet by mouth twice daily as [...] gel (20 sources)Nonsteroidal Anti-inflammatory DrugStart: 11-04-2023 End: 79-25-5419kcmqscrcjy sodium (VOLTAREN) 1 % gel Indications: Fibromyalgia syndrome APPLY 2 G TOPICALLY IN THE MORNING AT AT NOON IN THE EVENING AND BEFORE BEDTIME 100 g 2 11/04/2023 10/07/2024 Discontinued (Patient Stopped On Own) Start: 07-01-2023 End: 62-75-5697ehsuthxlaf sodium (VOLTAREN) 1 % gel Indications: Fibromyalgia syndrome Apply 2 g topically in the morning and 2 g at noon and 2 g in the evening and 2 g before bedtime. 100 g 2 07/01/2023 ActiveStart: 06-14-2023 End: 28-97-9667hmor 1 tablet by mouth twice daily as [...] oral capsule (9 sources)Histamine-1 Receptor Antagonist End: 15-75-7554vbot 1 capsule by mouth every six hours as neededdiphenhydrAMINE (BENADRYL) 50 mg capsule Take 1 capsule (50 mg total) by mouth every 6 (six) hours as needed for itching. 0 07/27/2023 Discontinued (Stop Taking at Discharge)Benadryl Activedoxycycline hyclate 100 mg oral capsule (20 sources)Tetracycline-class DrugStart: 09-24-2023 End: 87-32-9477jkec 1 capsule by mouth in the morning, then take 1 capsule by mouth at bedtimedoxycycline (VIBRAMYCIN) 100 mg capsule Indications: Community acquired pneumonia, unspecified laterality Take 1 capsule (100 mg total) by mouth in the morning and 1 capsule (100 mg total) before bedtime. Do all this for 7 days. 14 capsule 09/24/2023 09/30/2023 Discontinued (Therapy completed) Start: 07-24-2023 End: 55-60-6288ereqkujazwq (VIBRAMYCIN) 100 mg capsule 08/01/2023 ActiveStart: 05-18-2023 End: 75-50-9603ntki 1 capsule by mouth in the morning, then take 1 capsule by mouth at bedtimedoxycycline (VIBRAMYCIN) 100 mg capsule Take 1 capsule (100 mg total) by mouth in the morning and 1capsule (100 mg total) before bedtime. Do all this for 10 days. 20 capsule 0 05/18/2023 05/28/2023 Active End: 87-65-7919sgptxujeayn (Vibramycin) 100 MG capsule Take 100 mg by mouth in the morning and 100 mg before bedtime. Take with at least 8 ounces (large glass) of water, do not lie down for 30 minutes after. 01/12/2024 Discontinued (Med list cleanup)0.4 ml enoxaparin sodium 100 mg/ml prefilled syringe (1 source)Low Molecular Weight HeparinStart: 07-26-2023 End: 58-80-5265oqtcyy 40 mg by subcutaneous injection once daily40 mg, subcutaneous, Daily, First dose on 07/26/23 at 0600, Look-alike/sound-alike medication - verify indication for use.ferrous sulfate 325 mg oral tablet (12 sources)Start: 01-05-2023 End: 41-23-4821hjbqlph sulfate 325 (65 FE) mg tablet 1 tablet (325 mg total) in the morning and 1 tablet (325 mg total) in the evening. Take with meals. 0 01/05/2023 07/01/2023 Discontinued (Side effects)ferrous sulfate 325 (65 Fe) MG tablet TAKE 1 TABLET BY MOUTH TWICE A DAY FOR 30 DAYS for 30 Activefurosemide 40 mg oral tablet (5 sources)Loop DiureticStart: 11-07-2024 End: 34-32-5674vhqb 1 tablet by mouth once dailyfurosemide (LASIX) 40 mg tablet Indications: Venous insufficiency of both lower extremities Take 1 tablet (40 mg total) by mouth daily. 30 tablet 2 11/07/2024 11/28/2024 DiscontinuedStart: 10-24-2024 End: 69-05-0889grxt 1 tablet by mouth once dailyfurosemide (LASIX) 40 mg tablet Indications: Venous insufficiency of both lower extremities Take 1 tablet (40 mg total) by mouth daily for 5 days. 5 tablet 10/24/2024 10/29/2024 ActiveStart: 07-25-2023 End: 94-27-7849okdoblisqo (LASIX) injection 40 mggabapentin 100 mg oral capsule (20 sources)Anti-epileptic AgentStart: 07-25-2023 End: 46-60-7050czxl 200 mg by mouth three times daojr541 mg, oral, 3 times daily, First dose on 07/25/23 at 2200, Look-alike/sound-alike medication - verify indication for use.Start: 01-05-2023 End: 68-43-7723edkv 2 capsules by mouth three times dailygabapentin (Neurontin) 100 MG capsule Indications: Polyneuropathy, unspecified TAKE 2 CAPSULES BY MOUTH 3 TIMES A DAY FOR 30 DAYS 180 capsule 2 08/17/2023 01/12/2024 Discontinued (Med list cleanup)lidocaine 0.05 mg/mg medicated patch (4 sources)Antiarrhythmic, Amide Local AnestheticStart: 08-29-2023 End: 75-39-5517yssow 1 dose transdermal route every twelve hours in the morning lidocaine (LIDODERM) 5 % Place 1 patch on the skin in the morning. Remove & Discard patch within 12 hours or as directed by MD. 5 patch 08/29/2023 09/24/2023 Discontinued (Therapy completed)lurasidone hydrochloride 40 mg oral tablet (3 sources)Atypical AntipsychoticStart: 01-18-2018 End: 74-23-5604woft 1 tablet by mouth once dailyLurasidone (Latuda) 40 mg tablet Discontinued 60 MG PO Daily with supper June 08, 2018 11:26am June 08, 2018 12:03pmStart: 01-07-2018 End: 28-30-2141aspg 1 tablet by mouth once dailyLurasidone (Latuda) 20 mg tablet Discontinued 20 MG PO Daily with supper January 07, 2018 12:00am January 18, 2018 11:12am1 ml methylPREDNISolone acetate 40 mg/ml injection (9 sources)CorticosteroidStart: 01-26-2024 End: 83-65-0879rtgkgkXAXBUEAwtrjy acetate (DEPO-Medrol) injection 40 mgStart: 01-26-2024 End: 62-90-324491 mg, Intra-articular, Once PRN Procedure, Starting on Thu01/26/24 at 1350, For 1 doseStart: 12-29-2023 End: 68-60-2259rdzuzhAJFHOIKkoyqg acetate (DEPO-Medrol) injection 40 mgStart: 12-29-2023 End: 64-25-473685 mg, Injection, Once PRN Procedure, Starting on Thu12/29/23 at 1458, For 1 doseStart: 07-25-2023 End: 13-97-456094 mg, intravenous, Every 12 hours scheduled, First dose on 07/25/23 at 2115, May alter blood glucose or insulin requirements. Look-alike/sound-alike medication - verify indication for use.12 hr orphenadrine citrate 100 mg extended release oral tablet (3 sources)Muscle RelaxantStart: 10-20-2023 End: 59-97-1755qzre 1 tablet by mouth twice daily as needed for painorphenadrine (NORFLEX) 100 mg 12 hr tablet Take 1 tablet (100 mg total) by mouth 2 (two) times a day as needed for muscle spasms or pain. 10 tablet 10/20/2023 11/02/2023 Discontinued (Formulary change)oxyCODONE hydrochloride 5 mg oral tablet (8 sources)Opioid AgonistStart: 08-09-2023 End: 35-00-3150iwme 1 tablet by mouth every eight hours as needed for pain oxyCODONE (ROXICODONE) 5 mg immediate release tablet Indications: Acute right hip pain Take 1 tablet (5 mg total) by mouth every 8 (eight) hours as needed for pain for up to 2 days. Max Daily Amount:15 mg 6 tablet 08/09/2023 08/11/2023 End: 27-09-5475kbaABBNKD (Oxy-IR) 5 MG immediate release capsule Take 5 mg by mouth 01/12/2024 Discontinued (Med list cleanup)prazosin 1 mg oral capsule (1 source)alpha-Adrenergic BlockerStart: 01-18-2018 End: 61-63-9312iisk 2 mg by mouth twice dailyPrazosin Discontinued 2 MG PO Twice daily 120 January 18, 2018 12:00am June 08, 2018 11:26ampredniSONE 20 mg oral tablet (7 sources)Start: 09-24-2023 End: 60-44-9889whhs 1 tablet by mouth in the morningpredniSONE (DELTASONE) 20 mg tablet Indications: Community acquired pneumonia, unspecified laterality Take 1 tablet (20 mg total) by mouth in the morning for 7 days. 7 tablet 09/24/2023 09/30/2023 Discontinued (Therapy completed)Start: 04-06-0278zvad 2 tablets by mouth once daily at breakfastpredniSONE (DELTASONE) 20 mg tablet Take 2 tablets (40 mg total) by mouth daily with breakfast. 10 tablet 07/28/2023 ActiveStart: 07-28-2023 End: 99-15-8960ukbdqaIOUV (DELTASONE) tablet 40 mgrisperiDONE 1 mg oral tablet (1 source)Atypical AntipsychoticStart: 06-08-2018 End: 97-46-1607dotr 1 mg by mouth once dailyRisperidone Discontinued 1 MG PO Daily June 08, 2018 1:00am June 22, 2018 9:02cj550 ml sodium chloride 9 mg/ml prefilled syringe (4 sources)Start: 07-25-2023 End: mL, intravenous, Every 12 hours scheduled, First dose on 07/25/23 at 2115Start: 07-25-2023 End: mL, intravenous, As needed, line care, before and after each intermittent use, Starting on 07/25/23 at art: 07-25-2023 End: 16-84-6010mzfl 20 mL intravenously every hour as ggkgri97 mL/hr, intravenous, Continuous PRN, to maintain patency of lines, Starting on 07/25/23 at art: 07-25-2023 End: 57-37-3817uipy 25 mL intravenously every hour as kjcicn43 mL, intravenous, at 100 mL/hr, Administer over 15 Minutes, As needed, line care, line care after IVPB administration, Starting on 07/25/23 at 294510 hr venlafaxine 75 mg extended release oral capsule (20 sources)Serotonin and Norepinephrine Reuptake InhibitorStart: 03-14-2023 End: 15-76-7949zuus 1 capsule by mouth once daily in the morningvenlafaxine XR (EFFEXOR XR) 75 mg 24 hr capsule TAKE 1 CAPSULE BY MOUTH EVERY DAY IN THE MORNING 03/14/2023 ActiveStart: 03-14-2023 End: 22-73-5496lehpkqvztpq XR (EFFEXOR XR) 75 mg 24 hr capsule 03/14/2023 10/07/2024 Discontinued (Discontinued byanother clinician)Start: 10-17-2021 End: 99-86-8171lrcg 1 capsule by mouth every twenty-four hours [...] [Diaphragmatic hernia without obstruction or gangrene]Onset: 11-07-2024 73-76-0736MpwsjvuvBlznugwwp pain (4 sources)Right inguinal pain; Translations: [Right lower quadrant pain]Onset: 126369-74-7220JzxdisamVxksl and unspecified renal failure (5 sources)Acute injury of kidney; Translations: [Acute kidney failure, unspecified]Onset: 852713-24-6863VvxfisnzLikzy myocardial infarction (20 sources)Myocardial infarction; Translations: [Non-ST elevation (NSTEMI) myocardial infarction]Onset: 392807-89-6709FguorsdQzuglyn disorders (20 sources)Posttraumatic stress disorder; Translations: [Post-traumatic stress disorder, unspecified]Onset: 08-28-2015 Resolved: 108122-39-3454JhgnkzcKfwgkuxck and vision defects (20 sources)Visual impairment; Translations: [Unspecified visual loss]Onset: 798387-22-2605ErndivpRosqjij kidney disease (20 sources)Chronic kidney disease stage 3A ; Translations: [Stage 3a chronic kidney disease ([facility])]Onset: 07-07-2024 Resolved: 747725-00-2849ZfsxubdEfrpynh kidney disease (3 sources)Chronic kidney disease; Translations: [Chronic kidney disease, stage 3a]Onset: 78-02-9166Yednjkt obstructive pulmonary disease and bronchiectasis (20 sources)Chronic obstructive lung disease; Translations: [Chronic obstructive pulmonary disease, unspecified]Onset: 093559-72-6878ZpnktmuDruinaqddu associated with dizziness or vertigo (1 source)DizzinessOnset: 54-53-6460QjugtbupNopithtkvu heart failure; nonhypertensive (20 sources)Chronic heart failure co-occurrent with normal ejection fraction; Translations: [Chronic diastolic (congestive) heart failure]Onset: 02-27-2022 Resolved: 209615-06-0850KgwycqkHxndkfme atherosclerosis and other heart disease (20 sources)Coronary arteriosclerosis; Translations: [Atherosclerotic heart disease of lime coronary artery without angina pectoris]Onset: 05-08-2013 Resolved: 785104-89-1661VldlbuuQmrjbxee atherosclerosis and other heart disease (9 sources)Aortocoronary bypass graft present; Translations: [Presence of aortocoronary bypass graft]Onset: 04-29-2023 Resolved: 248156-35-3822JmtfntehSycwtwpbnb and other anemia (9 sources)Microcytic anemia; Translations: [Iron deficiency anemia, unspecified]Onset: 567236-11-8810SqsgykdrPrxwkttorm and other anemia (2 sources)Iron deficiency anemia, unspecified; Translations: [Iron deficiency anemia, unspecified]Onset: 60-44-7268VbrugdqtLshjdbcp mellitus with complications (2 sources)Type 2 diabetes mellitus; Translations: [Type 2 diabetes mellitus with diabetic chronic kidney disease]Onset: hronic Esophageal disorders (20 sources)Gastroesophageal reflux disease; Translations: [Gastro-esophageal reflux disease without esophagitis]Onset: 321064-56-1817XvablcpKvnjskivg hypertension (20 sources)Essential hypertension; Translations: [Essential (primary) hypertension]Onset: 237028-14-6565UgkbrrzAnmhdsys; including migraine (13 sources)Migraine; Translations: [Migraine, unspecified, not intractable, without status migrainosus]Onset: 209926-06-0446PbhxwwfZspqt valve disorders (20 sources)Tricuspid incompetence, non-rheumatic ; Translations: [Nonrheumatic tricuspid (valve) insufficiency]Onset: 592807-04-8917PjefaxaCikntzf and fatigue (20 sources)Asthenia; Translations: [Weakness]Onset: 05-28-2023 Resolved: 662109-61-2233DdsnirbmJhwg disorders (20 sources)Bipolar II disorder, most recent episode major depressive; Translations: [Bipolar II disorder]Onset: 474786-85-4950WvwilvmRyzmsu and vomiting (5 sources)Nausea and vomiting; Translations: [Nausea with vomiting, unspecified]Onset: 752041-91-4952SzttrcuaOdsxibvrusr deficiencies (13 sources)Vitamin D deficiency; Translations: [Vitamin D deficiency, unspecified]Onset: 601326-21-1343PaqvondXgyarmxchujazw (20 sources)Primary osteoarthritis, left shoulder; Translations: [Arthropathy, unspecified, shoulder region]Onset: 845759-55-1594UlnkpmrLsfyn aftercare (1 source)Encounter for therapeutic drug level monitoring; Translations: [Encounter for therapeutic drug level monitoring]Onset: 30-64-7749QrqhreotZiamn aftercare (1 source)Other shelter (current) drug therapy; Translations: [Other shelter (current) drug therapy]Onset: 17-80-2573MbcqgaxzCfkrg circulatory disease (1 source)Orthostatic hypotension; Translations: [Orthostatic hypotension] 09-09-7194SmvaspvlDeaag connective tissue disease (1 source)Trochanteric bursitis, left hipEpisodicOther connective tissue disease (6 sources)Myofascial pain syndrome; Translations: [Myalgia, unspecified site] 37-40-2037ZiumttdbRldlw connective tissue disease (3 sources)Fibromyalgia; Translations: [Fibromyalgia]88-63-9051NrimswgiVqswq connective tissue disease (2 sources)Tendonitis of right patellar tendon; Translations: [Patellar tendinitis, right knee]20-43-7905RtabueoiTaauv connective tissue disease (2 sources)Patellar tendinitis, right knee; Translations: [Patellar tendinitis, right knee]Onset: 17-51-9054BjygirlrTuiva diseases of veins and lymphatics (4 sources)Venous insufficiency of leg; Translations: [Venous insufficiency (chronic) (peripheral)]57-66-3314WvtecjfkMenmz diseases of veins and lymphatics (1 source)Venous insufficiency (chronic) (peripheral); Translations: [Venous insufficiency (chronic) (peripheral)]Onset: 45-60-6760DbczvznvFwche liver diseases (20 sources)Disease of liver; Translations: [Liver disease, unspecified]Onset: 208241-22-1860LpddogeBglxa lower respiratory disease (1 source)Acute respiratory distressOnset: 13-22-2118GqvobjloIcypk lower respiratory disease (1 source)Shortness of breath; Translations: [Shortness of breath]Onset: 72-54-9218LbjzmqybZzxft lower respiratory disease (1 source)Dyspnea, unspecified; Translations: [Dyspnea, unspecified]Onset: 00-66-3380LbadxntrRqftv nervous system disorders (2 sources)Polyneuropathy, unspecified; Translations: [Polyneuropathy, unspecified]Onset: 45-51-7593BdcreehWbvrw non-traumatic joint disorders (2 sources)Pain in left shoulder; Translations: [Pain in joint, shoulder region] 03-24-3880AdxhidunQjwno nutritional; endocrine; and metabolic disorders (13 sources)Obesity caused by energy imbalance; Translations: [Morbid (severe) obesity due to excess calories]Onset: 746782-10-6644KkgsmtpRnvvr nutritional; endocrine; and metabolic disorders (20 sources)Body mass index 30+ - obesity; Translations: [Obesity, unspecified] Onset: 01-30-2020 Resolved: 443037-42-5360KfmvhrhSsclg nutritional; endocrine; and metabolic disorders (1 source)Body mass index (BMI) 40.0-44.9, adult; Translations: [Body mass index (BMI) 40.0-44.9, adult]Onset: 98-65-9257VjbhvvlDkzqeoqndvv disorders (13 sources)Borderline personality disorder; Translations: [Borderline personality disorder]Onset: 458460-85-8002RvykvzlSiyknqbpi (except that caused by tuberculosis or sexually transmitted disease) (20 sources)Pneumonia; Translations: [Pneumonia, unspecified organism]Onset: 04-15-2023 Resolved: 939468-63-3720FucpdkuwXfwgzqsbo heart disease (20 sources)Pulmonary hypertension; Translations: [Pulmonary hypertension, unspecified]Onset: 082919-22-9132XmilbxbIgpqwflu codes; unclassified (20 sources)Obstructive sleep apnea syndrome; Translations: [Obstructive sleep apnea (adult) (pediatric)]Onset: 778075-62-1223FwukvhjOwgbfalz codes; unclassified (1 source)Sleep related hypoxemia; Translations: [Sleep related hypoventilation in conditions classified elsewhere]11-34-0981RefidurVtochtrm codes; unclassified (1 source)Obstructive sleep apnea (adult) (pediatric); Translations: [Obstructive sleep apnea (adult) (pediatric)]Onset: 22-56-2516XxphqojPvsrhaax codes; unclassified (1 source)EdemaOnset: 53-15-8263ZbzqtiwaOmylgqzbuam failure; insufficiency; arrest (adult) (20 sources)Chronic respiratory failure; Translations: [Chronic respiratory failure with hypoxia]Onset: 181634-17-2181KajuxjdNvrqrfgqwec; intervertebral disc disorders; other back problems (20 sources)Bilateral inflammation of sacroiliac joint; Translations: [Sacroiliitis, not elsewhere classified]Onset: 07-07-2024 Resolved: 58-62-2479AhbvybmCaeyufoch-related disorders (20 sources)Cannabis abuse; Translations: [Cannabis abuse, uncomplicated]Onset: 10-16-2020 Resolved: 484034-63-5986IifrvsqYvphdqpssgf injury; contusion (1 source)Contusion of lower leg; Translations: [Contusion of unspecified lower leg, initial encounter]82-26-0494DsqcafdnKgzuzikyxfbn (1 source)Low back pain, unspecified; Translations: [Low back pain, unspecified] Onset: 91-42-4463Suujrikjenqv (1 source)Chronic heart failure co-occurrent with normal ejection fraction 31-60-1542Iilmtsnbemau (2 sources)Autogenerated ProblemOnset: 448311-05-7329Qvmflzhnduhs (1 source)Controlled SubstanceOnset: 38-99-3043Nbkorqpgpskb (1 source)ErrorOnset: 73-20-4925Timgmwktmyds (1 source)illOnset: 12-03-2024 Past or Other Problems Problem ClassificationProblemDateDocumented DateEpisodic/ChronicCardiac dysrhythmias (6 sources)Ventricular tachycardia; Translations: [Ventricular tachycardia] Onset: 09-20-2024 Resolved: 841549-67-1621VvevghtLzrduksswosmm of surgical procedures or medical care (6 sources)Non-healing surgical wound; Translations: [Other complications of procedures, not elsewhere classified, initial encounter]Onset: 01-14-2023 11-43-6891DgrzkhqlInxvnysdfm and other anemia (19 sources)Iron deficiency anemia; Translations: [Iron deficiency anemia, unspecified]Onset: 676002-85-9269SryhrnauQvctzffk, dementia, and amnestic and other cognitive disorders (20 sources)Dementia; Translations: [Unspecified dementia, mild, without behavioral disturbance, psychotic disturbance, mood disturbance, and anxiety] Onset: 10-21-2022 Resolved: 543623-70-3241EdinerlIxncncgo mellitus without complication (20 sources)Hyperglycemia; Translations: [Hyperglycemia, unspecified]Onset: 013649-09-9307SibowxsrXxduychlm of lipid metabolism (7 sources)Hyperlipidemia; Translations: [Hyperlipidemia, unspecified]Onset: 04-29-2023 Resolved: 327302-30-6400NatwypeJnrjl and electrolyte disorders (20 sources)Hypokalemia; Translations: [Hypokalemia]Onset: 08-14-2020 Resolved: 868707-77-0940AjymvmhiTzoitymo; including migraine (17 sources)Chronic headache disorder; Translations: [Chronic headache]Onset: 530296-65-5973BblovlumLlig disorders (20 sources)Mood disordersOnset: 01-04-2024 Resolved: 854820-18-6667Yrqhmuhnmjg deficiencies (5 sources)Cobalamin deficiency; Translations: [Deficiency of other specified B group vitamins]Onset: 531260-28-1494ShfkuypvMppwf circulatory disease (7 sources)Low blood pressure; Translations: [Other hypotension]Onset: 08-14-2020 Resolved: 107020-53-4265KuxdtmmxMmlsr connective tissue disease (13 sources)Muscle weakness; Translations: [Muscle weakness (generalized)]Onset: 957782-40-3004KmnyhgnmFntkk diseases of kidney and ureters (6 sources)Acute renal insufficiency; Translations: [Disorder of kidney and ureter, unspecified]Onset: 310932-18-7223VfmrlpkvXougv fractures (20 sources)Fracture of sixth thoracic vertebra; Translations: [Wedge compression fracture of T5-T6 vertebra, subsequent encounter for fracture with routine healing]Onset: 206023-81-0428YbmxxcnmUqikq fractures (2 sources)Compression fracture of thoracic spine; Translations: [Wedge compression fracture of T7-T8 vertebra, subsequent encounter for fracture with routine healing]13-88-0545WuvjhugyKrilv inflammatory condition of skin (8 sources)Psoriasis; Translations: [Psoriasis, unspecified]Onset: 05-02-2023 Resolved: 450775-93-4820KkeuelfWxpxk injuries and conditions due to external causes (6 sources)Injury of breast; Translations: [Unspecified injury of thorax, initial encounter]Onset: 627089-59-2379YlddlgfkSxopn lower respiratory disease (8 sources)Solitary nodule of lung; Translations: [Solitary pulmonary nodule] Onset: 04-29-2023 Resolved: 020655-80-3185YcivewitAkoiv lower respiratory disease (20 sources)Dyspnea; Translations: [Shortness of breath]Onset: 11-05-2021 Resolved: 536676-53-7545RljwctoyCvwzf lower respiratory disease (1 source)Hypoxia; Translations: [Hypoxemia]13-68-4079EqnzanwnXdrer nervous system disorders (8 sources)Difficulty walking; Translations: [Difficulty in walking, not elsewhere classified]Onset: 04-28-2023 Resolved: 406883-22-5059IcyvcmyHoozf nervous system disorders (15 sources)Polyneuropathy; Translations: [Polyneuropathy, unspecified]Onset: 04-29-2023 Resolved: 455300-84-7236OofgidnUclgs nervous system disorders (1 source)Ataxia, unspecified; Translations: [Ataxia, unspecified]Onset: 13-78-9152OvjhrefdSsvde nutritional; endocrine; and metabolic disorders (20 sources)Body mass index 40+ - severely obese; Translations: [Body mass index (BMI) 40.0-44.9, adult]Onset: 06-01-2023 Resolved: 010217-18-9001StglkfrWsdjy nutritional; endocrine; and metabolic disorders (20 sources)H/O: raised blood lipids; Translations: [Personal history of other endocrine, nutritional and metabolic disease]Onset: 173516-26-6883Hpyikixt Pathological fracture (2 sources)Pathological fracture of vertebra due to osteoporosis; Translations: [Other osteoporosis with current pathological fracture, vertebra(e), subsequent encounter for fracture with routine healing]91-60-0786OmnfryyfOjkrlwgzt heart disease (20 sources)Acute pulmonary embolism; Translations: [Other pulmonary embolism without acute cor pulmonale]Onset: 08-28-2023 Resolved: 238319-64-6278UboutcsnTlpwksdv codes; unclassified (8 sources)Dependence on enabling machine or device; Translations: [Dependence on other enabling machines and devices]Onset: 04-29-2023 Resolved: 756982-74-4420DtezuxoGaijawbu codes; unclassified (20 sources)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; Translations: [Dependence on other enabling machines and devices]Onset: 10-21-2022 Resolved: 171266-54-1798MossiurCtocjcdj codes; unclassified (1 source)Viral syndrome; Translations: [Other general symptoms and signs] 67-38-9569UvwtvkfpHurgxctplvp failure; insufficiency; arrest (adult) (20 sources)Acute respiratory failure, unspecified whether with hypoxia or hypercapnia; Translations: [Acute hypoxemic and hypercapnic respiratory failure] Onset: 04-14-2023 Resolved: [id number] and history of mental health and substance abuse codes (20 sources)Ex-smoker; Translations: [Personal history of nicotine dependence] Onset: 09-26-2022 Resolved: [id number] and face fractures (20 sources)Fracture of tooth ; Translations: [Fracture of tooth (traumatic), initial encounter for closed fracture]Onset: [id number] Spondylosis; intervertebral disc disorders; other back problems (20 sources)Spinal stenosis, lumbar region without neurogenic claudication; Translations: [Low back pain]Onset: 84-35-1320NlboqiswPtzxpgyxajbc (1 source)Bilateral low back pain, unspecified chronicity, unspecified whether sciatica present M54.50Viral infection (20 sources)Disease caused by 2019-nCoV; Translations: [COVID-19]Onset: 04-15-2023 Resolved: [id number] Results Test NameValueInterpretationReference RangeFacilityCBC WITH AUTO DIFFERENTIALon [id number] ABSOLUTE COUNT (10*3/UL) BY AUTOMATED COUNT0.1 10*3/uLNormal 0.0-0.2[facility] on above:Result Comment: This is an appended report. These results have been appended to a previously preliminary verified report.Performed By: #### CMP #### [facility] ([address] [place] [address] VIRBASOPHILS RELATIVE PERCENT BY AUTOMATED COUNT1.1 %Normal [facility] on above:Result Comment: This is an appended report. These results have been appended to a previously preliminary verified report.Performed By: #### CMP #### [address] [place] [address] VIRCELLAVISION ANISOCYTOSIS IN BLOOD BY LIGHT MICROSCOPY2+ NormalProThe [facility] of [facility] [place] on above:Result Comment: This is an appended report. These results have been appended to a previously preliminary verified report.Performed By: #### CMP #### [facility] ([address] [place] [address] VIRCELLAVISION DIFFERENTIAL TYPEAUTOMATED DIFFERENTIALNormal [facility] on above:Result Comment: This is an appended report. These results have been appended to a previously preliminary verified report.Performed By: #### CMP #### [facility] ([address] [place] [address] VIRCELLAVISION ELLIPTOCYTES IN BLOOD BY LIGHT MICROSCOPY1+ NormalProThe [facility] of [facility] [place] on above:Result Comment: This is an appended report. These results have been appended to a previously preliminary verified report.Performed By: #### CMP #### [address] [place] [address] VIRCELLAVISION HYPOCHROMIA IN BLOOD BY LIGHT MICROSCOPY1+ [facility] on above:Result Comment: This is an appended report. These results have been appended to a previously preliminary verified report.Performed By: #### CMP #### [facility] ([address] [address] VIRCELLAVISION TARGET CELLS IN BLOOD BY LIGHT MICROSCOPY1+ NormalP[facility] Hospital on above:Result Comment: This is an appended report. These results have been appended to a previously preliminary verified report.Performed By: #### CMP #### [facility] ([address] [address] VIREosinophils (Bld) [#/Vol]0.2 10*3/uLNormal0.0-0.4[facility] on above:Result Comment: This is an appended report. These results have been appended to a previously preliminary verified report. Performed By: #### CMP #### [address] [address] VIREOSINOPHILS RELATIVE PERCENT BY AUTOMATED COUNT1.4 %Normal [facility] on above:Result Comment: This is an appended report. These results have been appended to a previously preliminary verified report.Performed By: #### CMP #### [facility] ([address] [address] VIRErythrocyte distribution width (RBC) [Ratio]24.9 %High 11.5-15[facility] HospitalComschool[facility] on above:Performed By: #### CMP #### [address] [address] VIRHematocrit (Bld) [Volume fraction]35.1 %Entlhp83-89 [facility] on above:Performed By: #### CMP #### [facility] ([address] [address] VIRHemoglobin (Bld) [Mass/Vol]10.7 g/dLLow11.7-15.5[facility] on above:Performed By: #### CMP #### [facility] ([address] [address] VIRLYMPHOCYTES ABSOLUTE COUNT (10*3/UL) BY AUTOMATED COUNT2.2 10*3/uLNormal1.0-3.5[facility] on above:Result Comment: This is an appended report. These results have been appended to a previously preliminary verified report.Performed By: #### CMP #### [facility] ([address] [address] VIRLYMPHOCYTES RELATIVE PERCENT BY AUTOMATED COUNT19.1 %Normal [facility] on above:Result Comment: This is an appended report. These results have been appended to a previously preliminary verified report.Performed By: #### CMP #### [facility] ([address] [address] VIRH (RBC) [Entitic mass]20.8 bnKvq55-50MfzPbhzgiPeterson Regional Medical CenterComment on above:Performed By: #### CMP #### [facility] ([address] [address] VIRMCHC (RBC) [Mass/Vol]30.5 g/vYWhs91-47GwlPkdkmpSt. John of God HospitalComschoolcraft memorial hospital on above:Performed By: #### CMP #### [facility] ([address] [address] VIRV (RBC) [Entitic vol]68 yMLvi83-046JsfLajknoPeterson Regional Medical CenterComment on above:Performed By: #### CMP #### [facility] ([address] [address] VIRMONOCYTES ABSOLUTE COUNT (10*3/UL) BY AUTOMATED COUNT0.7 10*3/uLNormal0.0-0.9[facility] on above:Result Comment: This is an appended report. These results have been appended to a previously preliminary verified report.Performed By: #### CMP #### [facility] ([address] [address] VIRMONOCYTES RELATIVE PERCENT BY AUTOMATED COUNT6.3 %Normal [facility] on above:Result Comment: This is an appended report. These results have been appended to a previously preliminary verified report.Performed By: #### CMP #### [facility] ([address] [address] VIRNEUTROPHILS ABSOLUTE COUNT BY AUTOMATED COUNT8.2 10*3/uL High1.5-6.6[facility] on above:Result Comment: This is an appended report. These results have been appended to a previously preliminary verified report.Performed By: #### CMP #### [address] [address] VIRNEUTROPHILS RELATIVE PERCENT BY AUTOMATED COUNT72.1 %Normal [facility] HospitalComschool[facility] on above:Result Comment: This is an appended report. These results have been appended to a previously preliminary verified report.Performed By: #### CMP #### [facility] ([address] [address] VIRPlatelet mean volume (Bld) [Entitic vol]8.[address]LNormal7-12 [address] HospitalComschool[facility] memorial hospital on above:Performed By: #### CMP #### [facility] ([address] [address] VIRPlatelets (Bld) [#/Vol]354 10*3/vNRqrjqw899-344LgvTcvekb [facility] HospitalComschool[facility] hospital on above:Performed By: #### CMP #### [facility] ([address] [address] VIRRBC COUNT5.16 X10E12/LNormal3.8-5.2[facility] CenterComment on above:Performed By: #### CMP #### [facility] ([place] [address] [place] [address] VIRWBC (Bld) [#/Vol]11.4 10*3/uLHigh4-11ProPeterson Regional Medical CenterComment on above:Performed By: #### CMP #### [facility] ([facility]) [facility] [place] [address] VIRCOMPREHENSIVE METABOLIC PANELon 20-68-8256Zobcgyn [Mass/Vol]4.1 g/dLNormal3.2-5.3POhioHealth Pickerington Methodist HospitalComment on above: Performed By: #### CMP #### [facility] ([place] [address] [place] [address] VIRALP [Catalytic activity/Vol]82 U/AScyhhe44-076KcdIsevsaPeterson Regional Medical CenterComment on above:Performed By: #### CMP #### [facility] ([place] [address] [place] [address] VIRALT [Catalytic activity/Vol]22 U/LNormal<=31POhioHealth Pickerington Methodist HospitalComment on above:Performed By: #### CMP #### [facility] ([place] [address] [place] [address] VIRAnion gap [Moles/Vol]14 mmol/LNormal5-15ProPeterson Regional Medical CenterComment on above:Performed By: #### CMP #### [facility] ([place] [address] [place] [address] VIRAST [Catalytic activity/Vol]21 U/LNormal<=41ProPeterson Regional Medical CenterComment on above:Performed By: #### CMP #### [facility] ([place] [address] [place] [address] VIRBilirubin [Mass/Vol]0.4 mg/dLNormal0.3-1.2Pro[facility]em[facility] HospitalComment on above:Performed By: #### CMP #### [facility] ([address] [place] [address] VIRCalcium [Mass/Vol]9.2 mg/dLNormal8.5-10.5POhioHealth Pickerington Methodist HospitalComment on above:Performed By: #### CMP #### [facility] ([address] [place] [address] VIRChloride [Moles/Vol]96 mmol/RXmv04-072HwoAyfksuPeterson Regional Medical CenterComment on above:Performed By: #### CMP #### [address] [address] VIRCO2 [Moles/Vol]29 mmol/LHexozi42-52SimJhqqfbOhioHealth Pickerington Methodist HospitalComment on above:Performed By: #### CMP #### [address] [address] VIRCreatinine [Mass/Vol]1.53 mg/dLHigh0.40-1.00ProPeterson Regional Medical CenterComment on above:Result Comment: METHOD TRACEABLE TO IDMS STANDARDPerformed By: #### CMP #### [facility] ([address] [address] VIRGFR/1.73 sq M.predicted among non-blacks MDRD (S/P/Bld) [Vol rate/Area]38 mL/min/{1.73_m2}Low>=60ProPeterson Regional Medical CenterComment on above:Result Comment: eGFR not reported due to non-numeric value for Creatinine. Reported eGFR is based on the CKD-EPI 2021 equation that does not use a race coefficient.Performed By: #### CMP #### [facility] ([address] [address] VIRGlucose [Mass/Vol]103 mg/eHVwqt19-74FgwRzxjviPeterson Regional Medical CenterComment on above:Performed By: #### CMP #### [facility] ([facility]) [address] [place] [address] [place] [address] VIRPotassium [Moles/Vol]3.4 mmol/LLow3.5-5.0ProPeterson Regional Medical CenterComment on above:Performed By: #### CMP #### [facility] ([address] [place] [address] VIRProtein [Mass/Vol]7.6 g/dLNormal6.0-8.0ProPeterson Regional Medical CenterComment on above:Performed By: #### CMP #### [facility] ([address] [place] [address] VIRSodium [Moles/Vol]139 mmol/FJwlhle031-666CzsBdwppa [facility] HospitalComment on above:Performed By: #### CMP #### [facility] ([address] [place] [address] VIRUrea nitrogen [Mass/Vol]28 mg/dLHigh5-27ProPeterson Regional Medical CenterComment on above:Performed By: #### CMP #### [facility] ([address] [place] [address] VIRCT ABDOMEN AND PELVIS W CONTon 16-15-8753PL ABDOMEN AND PELVIS W CONTCT ABDOMEN AND [...] by Saurabh Anderson MD on 02/22/2025 3:54 PMNormalProPeterson Regional Medical CenterLACTATE W/ REFLEXon 74-53-9099GYLAAYK W/REFLEX0.9 mmol/LNormal0.4-2.0 [facility] [facility] HospitalComschoolcraft memorial hospital on above:Order Comment: Result did not trigger repeat Lactate,re-order if needed.Performed By: #### CMP #### [address] [address] VIRLIPASEon 64-78-7374Mzkvvp [Catalytic activity/Vol]40 U/L Vpxkkx16-70FnyVxusfkSt. John of God HospitalComschoolcraft memorial hospital on above:Performed By: #### CMP #### [facility] ([address] [address] VIRMAGNESIUMon 96-26-5302Umepoaqch [Mass/Vol]2.3 mg/dLNormal 1.8-2.6[facility] HospitalComschoolcraft memorial hospital on above:Performed By: #### CMP #### [address] [address] VIRPOCT NURSING URINE MACROSCOPIC UAon 88-54-4048PJAXSJXJD JYOTI NegativeNormalNegativeProMedica Whittemore HospitalComment on above:Performed By: #### CMP #### [facility] ([address] [address] VIRBLOOD/HGB NURTraceAbnormalNegativeSt. John of God HospitalComment on above:Performed By: #### CMP #### [facility] ([address] [address] VIRGLUCOSE XOL966 mg/dLAbnormalNegativeSt. John of God HospitalComment on above:Performed By: #### CMP #### [facility] ([address] [address] VIRKETONES NURNegativeNormalNegDayton Osteopathic Hospital Comment on above:Performed By: #### CMP #### [facility] ([address] [address] VIRLEUKOCYTE ESTERASE NURNegativeNormalNegativeSt. John of God HospitalComment on above:Performed By: #### CMP #### [facility] ([address] [address] VIRNITRITE NURNegativeNormalNegDayton Osteopathic Hospital Comment on above:Performed By: #### CMP #### [facility] ([address] [address] VIRPH NUR5.2Pdgyyv9.0, 6.0, 6.5, 7.0, 7.5, 8.0, 8.5, 5.5 [facility] HospitalComment on above:Performed By: #### CMP #### [facility] ([address] [place] [address] VIRPROTEIN NURNegativeNowakemed north hospitalNegativeSt. John of God Hospital Comment on above:Performed By: #### CMP #### [facility] ([address] [place] [address] VIRSPECIFIC GRAVITY NUR1.931Sszoov5.010, 1.015, 1.020, 1.025 [facility] God HospitalComment on above:Performed By: #### CMP #### [facility] ([address] [place] [address] VIRUROBILINOGEN NUR0.2 E.U./dLNormalSt. John of God Hospital Comment on above:Performed By: #### CMP #### [facility] ([address] [place] [address] VIRBASIC METABOLIC PANELon 46-65-2276Cwnml gap [Moles/Vol]9 mmol/LNormal5-15St[facility] HospitalComment on above:Performed By: #### CMP #### [address] [place] [address] VIRCalcium [Mass/Vol]9.6 mg/dLNormal8.5-10.5POhioHealth Pickerington Methodist HospitalComment on above:Performed By: #### CMP #### [address] [place] [address] VIRChloride [Moles/Vol]96 mmol/VQml76-937QnfMrehruSt. John of God HospitalComment on above:Performed By: #### CMP #### [facility] ([address] [place] [address] VIRCO2 [Moles/Vol]35 mmol/UVetg42-08LzmBlyfieOhioHealth Pickerington Methodist Hospital Comment on above:Performed By: #### CMP #### [address] [place] [address] VIRCreatinine [Mass/Vol]1.17 mg/dLHigh0.40-1.00St. [facility] of God HospitalComment on above:Result Comment: METHOD TRACEABLE TO IDMS STANDARDPerformed By: #### CMP #### [facility] [place] [place] [address] VIRGFR/1.73 sq M.predicted among non-blacks MDRD (S/P/Bld) [Vol rate/Area]53 mL/min/{1.73_m2}Low>=60ProPeterson Regional Medical CenterComment on above:Result Comment: Reported eGFR is based on the CKD-EPI 2020 equation that does not use a race coefficient.Performed By: #### CMP #### [facility] ([address] [place] [address] VIRGlucose [Mass/Vol]101 mg/wBUgcq09-44HmrRxzexzPeterson Regional Medical CenterComment on above:Performed By: #### CMP #### [address] [place] [address] VIRPotassium [Moles/Vol]3.3 mmol/LLow3.5-5.0ProPeterson Regional Medical CenterComment on above:Performed By: #### CMP #### [facility] ([address] [place] [address] VIRSodium [Moles/Vol]140 mmol/IAamsts295-045OanNcjaye [facility] HospitalComment on above:Performed By: #### CMP #### [address] [place] [address] VIRUrea nitrogen [Mass/Vol]16 mg/dLNormal5-27ProPeterson Regional Medical CenterComment on above:Performed By: #### CMP #### [address] [place] [address] VIRBASIC METABOLIC PANELon 78-19-1499Tpnvw gap [Moles/Vol]12 mmol/LNormal5-15ProPeterson Regional Medical CenterComment on above:Performed By: #### LACTS #### [facility] ([address] [place] [address] VIRCalcium [Mass/Vol]9.2 mg/dLNormal8.5-10.5POhioHealth Pickerington Methodist HospitalComment on above:Performed By: #### LACTS #### [facility] ([address] [place] [address] VIRChloride [Moles/Vol]97 mmol/VIoy41-866VenKelhznPeterson Regional Medical CenterComment on above:Performed By: #### LACTS #### [facility] ([address] [address] VIRCO2 [Moles/Vol]29 mmol/ERzjmxd53-70KeuSryzjxOhioHealth Pickerington Methodist HospitalComment on above:Performed By: #### LACTS #### [facility] ([address] [address] VIRCreatinine [Mass/Vol]1.16 mg/dLHigh0.40-1.00ProPeterson Regional Medical CenterComment on above:Result Comment: METHOD TRACEABLE TO IDRI STANDARDPerformed By: #### LACTS #### [facility] ([address] [address] VIRGFR/1.73 sq M.predicted among non-blacks MDRD (S/P/Bld) [Vol rate/Area]53 mL/min/{1.73_m2}Low>=60ProPeterson Regional Medical CenterComment on above:Result Comment: eGFR not reported due to non-numeric value for Creatinine. Reported eGFR is based on the CKD-EPI 2021 equation that does not use a race coefficient.Performed By: #### LACTS #### [facility] ([address] [address] VIRGlucose [Mass/Vol]127 mg/bDPfks97-87DmoYjuzyoPeterson Regional Medical CenterComment on above:Performed By: #### LACTS #### [facility] ([address] [address] VIRPotassium [Moles/Vol]3.4 mmol/LLow3.5-5.0St[facility] HospitalComment on above:Performed By: #### LACTS #### [facility] ([address] [address] VIRSodium [Moles/Vol]138 mmol/QWbnvfq498-356XjmOrgfmf [facility] HospitalComschoolcraft memorial hospital on above:Performed By: #### LACTS #### [facility] CENTERMindi [facility] ([address] [address] VIRUrea nitrogen [Mass/Vol]13 mg/dLNormal5-27ProPeterson Regional Medical CenterComment on above:Performed By: #### LACTS #### [facility] ([address] [address] VIRCBC WITH AUTO DIFFERENTIALon 39-30-7749WZGKCLIYT ABSOLUTE COUNT (10*3/UL) BY AUTOMATED COUNT0.2 10*3/uLNormal0.0-0.2POhioHealth Pickerington Methodist HospitalComschoolcraft memorial hospital on above:Result Comment: This is an appended report. These results have been appended to a previously preliminary verified report.Performed By: #### LACTS #### [facility] ([address] [address] VIRBASOPHILS RELATIVE PERCENT BY AUTOMATED COUNT1.9 %Normal [facility] on above:Result Comment: This is an appended report. These results have been appended to a previously preliminary verified report.Performed By: #### LACTS #### [facility]ENTERMindi [facility] ([address] [address] VIRCELLAVISION ANISOCYTOSIS IN BLOOD BY LIGHT MICROSCOPY2+ NormalPike [facility] Hospital on above:Result Comment: This is an appended report. These results have been appended to a previously preliminary verified report.Performed By: #### LACTS #### [facility] ([address] [address] VIRCELLAVISION DIFFERENTIAL TYPEAUTOMATED DIFFERENTIALNormal [facility] on above:Result Comment: This is an appended report. These results have been appended to a previously preliminary verified report.Performed By: #### LACTS #### [facility] ([address] [address] VIRCELLAVISION ELLIPTOCYTES IN BLOOD BY LIGHT MICROSCOPY1+ NormalSt. John of God HospitalComschoolcraft memorial hospital on above:Result Comment: This is an appended report. These results have been appended to a previously preliminary verified report.Performed By: #### LACTS #### [facility] ([address] [address] VIREosinophils (Bld) [#/Vol]0.2 10*3/uLNormal0.0-0.4[facility] on above:Result Comment: This is an appended report. These results have been appended to a previously preliminary verified report. Performed By: #### LACTS #### [facility] ([address] [address] VIREOSINOPHILS RELATIVE PERCENT BY AUTOMATED COUNT1.7 %Normal [facility] on above:Result Comment: This is an appended report. These results have been appended to a previously preliminary verified report.Performed By: #### LACTS #### [facility] ([address] [address] VIRErythrocyte distribution width (RBC) [Ratio]22.2 %High 11.5-15ProPeterson Regional Medical CenterComment on above:Performed By: #### LACTS #### [facility] ([address] [address] VIRHematocrit (Bld) [Volume fraction]34.6 %Dbr59-54ZkcIovrnyPeterson Regional Medical CenterComment on above:Performed By: #### LACTS #### [facility] ([address] [place] [address] VIRHemoglobin (Bld) [Mass/Vol]10.6 g/dLLow11.7-15.5POhioHealth Pickerington Methodist HospitalComment on above:Performed By: #### LACTS #### [facility] ([facility]) [address] [place] [address] VIRLYMPHOCYTES ABSOLUTE COUNT (10*3/UL) BY AUTOMATED COUNT2.2 10*3/uLNormal1.0-3.5POhioHealth Pickerington Methodist HospitalComment on above:Result Comment: This is an appended report. These results have been appended to a previously preliminary verified report.Performed By: #### LACTS #### [facility] ([address] [address] VIRLYMPHOCYTES RELATIVE PERCENT BY AUTOMATED COUNT23.0 %Normal [facility] HospitalComschoolcraft memorial hospital on above:Result Comment: This is an appended report. These results have been appended to a previously preliminary verified report.Performed By: #### LACTS #### [facility] ([address] [address] VIRMCH (RBC) [Entitic mass]20.0 ieYbp84-29AgtYlyykqPeterson Regional Medical CenterComment on above:Performed By: #### LACTS #### [facility] ([address] [address] VIRMCHC (RBC) [Mass/Vol]30.6 g/sDBkr74-64EpePjcxaoPeterson Regional Medical CenterComment on above:Performed By: #### LACTS #### [facility] ([address] [address] VIRMCV (RBC) [Entitic vol]65 hVSvo86-705KqoHgvsypPeterson Regional Medical CenterComment on above:Performed By: #### LACTS #### [facility] ([address] [address] VIRMONOCYTES ABSOLUTE COUNT (10*3/UL) BY AUTOMATED COUNT0.4 10*3/uLNormal0.0-0.9[facility] on above:Result Comment: This is an appended report. These results have been appended to a previously preliminary verified report.Performed By: #### LACTS #### [facility] ([address] [address] VIRMONOCYTES RELATIVE PERCENT BY AUTOMATED COUNT4.1 %Normal [facility] on above:Result Comment: This is an appended report. These results have been appended to a previously preliminary verified report.Performed By: #### LACTS #### [address] [address] VIRNEUTROPHILS ABSOLUTE COUNT BY AUTOMATED COUNT6.6 10*3/uL Normal1.5-6.6[facility] on above:Result Comment: This is an appended report. These results have been appended to a previously preliminary verified report.Performed By: #### LACTS #### [facility] ([address] [address] VIRNEUTROPHILS RELATIVE PERCENT BY AUTOMATED COUNT69.3 %Normal [facility] on above:Result Comment: This is an appended report. These results have been appended to a previously preliminary verified report.Performed By: #### LACTS #### [facility] ([address] [address] VIRPlatelet mean volume (Bld) [Entitic vol]8.4 fLNormal7-12 [facility] on above:Performed By: #### LACTS #### [facility] ([address] [address] VIRPlatelets (Bld) [#/Vol]360 10*3/kZBbilox610-412AhpDpprnx [facility]remont HospitalComment on above:Performed By: #### LACTS #### [facility] ([facility]) [address] [place] [address] VIRRBC COUNT5.30 X10E12/LHigh3.8-5.2POverton Brooks VA Medical Centerica [facility] Comment on above:Performed By: #### LACTS #### [facility] ([facility]) [address] [place] [address] VIRWBC (Bld) [#/Vol]9.6 10*3/uLNormal4-11[facility] Medical CenterComment on above:Performed By: #### LACTS #### [facility] ([facility]) [address] [place] [address] VIRCT ABDOMEN AND PELVIS W CONTon 83-92-5595RW ABDOMEN AND PELVIS W CONTCT ABDOMEN AND [...] by Cesario Cooley MD on 02/09/2025 3:45 PMNormalSt. John of God Hospital LIPASEon 23-87-3567Hepjdp [Catalytic activity/Vol]41 U/CNkbh53-09QycYsmgrbPeterson Regional Medical CenterComment on above:Performed By: #### LACTS #### [facility] ([place] [address] [place] [address] VIRLIVER PANELon 26-33-9268Styzscz [Mass/Vol]4.2 g/dLNormal 3.2-5.3POhioHealth Pickerington Methodist HospitalComment on above:Performed By: #### LACTS #### [facility] ([address] [place] [address] VIRALP [Catalytic activity/Vol]89 U/UCyyshp94-114SkfOlqrzhPeterson Regional Medical CenterComment on above:Performed By: #### LACTS #### [facility] ([address] [place] [address] VIRALT [Catalytic activity/Vol]17 U/LNormal<=31POhioHealth Pickerington Methodist HospitalComment on above:Performed By: #### LACTS #### [facility] ([place] [address] [place] [address] VIRAST [Catalytic activity/Vol]20 U/LNormal<=41ProPeterson Regional Medical CenterComment on above:Performed By: #### LACTS #### [facility] ([place] [address] [place] [address] VIRBilirubin [Mass/Vol]0.7 mg/dLNormal0.3-1.2POhioHealth Pickerington Methodist HospitalComment on above:Performed By: #### LACTS #### [facility] ([place] [address] [place] [address] VIRBilirubin.indirect [Mass/Vol]0.1 mg/dLNormal<=0.4ProPeterson Regional Medical CenterComment on above:Performed By: #### LACTS #### [facility] ([address] [place] [address] VIRProtein [Mass/Vol]7.9 g/dLNormal6.0-8.0ProPeterson Regional Medical CenterComment on above:Performed By: #### LACTS #### [facility] ([address] [place] [address] VIRBASIC METABOLIC PANELon 84-70-9619Dxwbz gap [Moles/Vol]9 mmol/LNormal5-15ProPeterson Regional Medical CenterComment on above:Performed By: #### LACTS #### [facility] ([address] [place] [address] VIRCalcium [Mass/Vol]9.1 mg/dLNormal8.5-10.5POhioHealth Pickerington Methodist HospitalComment on above:Performed By: #### LACTS #### [facility] ([address] [place] [address] VIRChloride [Moles/Vol]102 mmol/FIxuwzt57-097OviBfwkfhPeterson Regional Medical CenterComment on above:Performed By: #### LACTS #### [facility] ([address] [place] [address] VIRCO2 [Moles/Vol]31 mmol/GPcmmzf77-74LbiDvcfftOhioHealth Pickerington Methodist HospitalComment on above:Performed By: #### LACTS #### [facility] ([address] [place] [address] VIRCreatinine [Mass/Vol]1.27 mg/dLHigh0.40-1.00ProPeterson Regional Medical CenterComment on above:Result Comment: METHOD TRACEABLE TO IDMS STANDARDPerformed By: #### LACTS #### [facility] ([address] [place] [address] VIRGFR/1.73 sq M.predicted among non-blacks MDRD (S/P/Bld) [Vol rate/Area]48 mL/min/{1.73_m2}Low>=60ProPeterson Regional Medical CenterComment on above:Result Comment: Reported eGFR is based on the CKD-EPI 2020 equation that does not use a race coefficient.Performed By: #### LACTS #### [facility] ([address] [place] [address] VIRGlucose [Mass/Vol]91 mg/eRXulqld12-13PzoYpudcuPeterson Regional Medical CenterComment on above:Performed By: #### LACTS #### [facility] ([address] [place] [address] VIRPotassium [Moles/Vol]4.2 mmol/LNormal3.5-5.0ProPeterson Regional Medical CenterComment on above:Performed By: #### LACTS #### [facility] ([address] [place] [address] VIRSodium [Moles/Vol]142 mmol/QJirwox122-599PxxQtptdi Fremont HospitalComment on above:Performed By: #### LACTS #### [facility] ([address] [place] [address] VIRUrea nitrogen [Mass/Vol]16 mg/dLNormal5-27ProPeterson Regional Medical CenterComment on above:Performed By: #### LACTS #### [facility] ([address] [place] [address] VIRBasic Metabolic Panelon 56-51-4446Elwud gap [Moles/Vol]9 mmol/L5 - 15 mmol/LProMedica Health SystemCalcium [Mass/Vol]9.1 mg/dL8.5 - 10.5 mg/dLProMedica Health SystemChloride [Moles/Vol]102 mmol/L98 - 109 mmol/L [facility] SystemCO2 [Moles/Vol]31 mmol/L22 - 32 mmol/LPrBlanchard Valley Health System [facility] SystemCreatinine [Mass/Vol]1.27 mg/dLHigh0.40 - 1.00 mg/dLAshtabula General HospitalComment on above:METHOD TRACEABLE TO IDMS STANDARDEGFR Non-Race Dependent 48Low- PINACMC Healthcare System SystemComment on above:Reported eGFR is based on the CKD-EPI 2020 equation that does not use a race coefficient. Glucose [Mass/Vol]91 mg/dL65 - 99 mg/dLAshtabula General HospitalInterpretation and review of laboratory resultsAbnormalAshtabula General HospitalPotassium [Moles/Vol]4.2 mmol/L3.5 - 5.0 mmol/[facility] SystemSodium [Moles/Vol] 142 mmol/L134 - 146 mmol/[facility] SystemUrea nitrogen [Mass/Vol]16 mg/dL5 - 27 mg/dLChildren's Hospital of PhiladelphiaBASIC METABOLIC PANELon 62-11-4885Ewrit gap [Moles/Vol]8 mmol/LNormal5-15[facility] PPGComment on above:Performed By: #### BMP #### [facility] ([facility]) [address] [place] [address] VIRCalcium [Mass/Vol]9.0 mg/dLAlamo8.5-10.5PParma Community General Hospital Ambulatory PPGComment on above:Performed By: #### BMP #### [facility] ([facility]) [address] [place] [address] VIRChloride [Moles/Vol]101 mmol/ULqrpdx24-932CksVtmiao Hospital Ambulatory PPGComment on above:Performed By: #### BMP #### [facility] ([facility]) [address] [place] [address] VIRCO2 [Moles/Vol]33 mmol/DUjcx76-66NgfHhuabd Hospital Ambulatory PPGComment on above:Performed By: #### BMP #### [facility] ([facility]) [address] [place] [address] VIRCreatinine [Mass/Vol]1.32 mg/dLHigh0.40-1.00[facility] PPGComment on above:Result Comment: METHOD TRACEABLE TO IDMS STANDARDPerformed By: #### BMP #### [facility] ([facility]) [address] [place] [address] VIRGFR/1.73 sq M.predicted among non-blacks MDRD (S/P/Bld) [Vol rate/Area]46 mL/min/{1.73_m2}Low>=60ProSouthwest General Health Center Ambulatory PPGComment on above:Result Comment: Reported eGFR is based on the CKD-EPI 2020 equation that does not use a race coefficient.Performed By: #### BMP #### [facility] ([facility]) [address] [place] [address] VIRGlucose [Mass/Vol]106 mg/sVFzmq41-76FmjQzauhi Hospital Ambulatory PPGComment on above:Performed By: #### BMP #### [facility] ([facility]) [address] [place] [address] VIRPotassium [Moles/Vol]4.5 mmol/LNormal3.5-5.0[facility] PPGComment on above:Performed By: #### BMP #### [facility] ([facility]) [address] [place] [address] VIRSodium [Moles/Vol]142 mmol/DOoghrj724-913FhkAwnbsv Hospital Ambulatory PPGComment on above:Performed By: #### BMP #### [facility] ([facility]) [address] [place] [address] VIRUrea nitrogen [Mass/Vol]21 mg/dLNormal5-27[facility] PPGComment on above:Performed By: #### BMP #### [facility] ([facility]) [address] [place] [address] VIRBasic Metabolic Panelon 23-34-3128Nupan gap [Moles/Vol]8 mmol/L5 - 15 mmol/LProMedica Health SystemCalcium [Mass/Vol]9 mg/dL8.5 - 10.5 mg/dLOhioHealth Grady Memorial Hospital SystemChloride [Moles/Vol]101 mmol/L98 - 109 mmol/L [facility] SystemCO2 [Moles/Vol]33 mmol/LHigh22 - 32 mmol/LPrBlanchard Valley Health System [facility] SystemCreatinine [Mass/Vol]1.32 mg/dLHigh0.40 - 1.00 mg/dLAshtabula General HospitalComment on above:METHOD TRACEABLE TO IDRI STANDARDEGFR Non-Race Fsonetbjf37Ltm- PINFPMercy Health St. Elizabeth Youngstown HospitalComment on above:Reported eGFR is based on the CKD-EPI 2020 equation that does not use a race coefficient. Glucose [Mass/Vol]106 mg/dDVqdt60 - 99 mg/dLAshtabula General Hospital Interpretation and review of laboratory resultsAbnoDuke University Hospital Potassium [Moles/Vol]4.5 mmol/L3.5 - 5.0 mmol/LPrUCHealth Broomfield Hospital Health SystemSodium [Moles/Vol]142 mmol/L134 - [address] mmol/[facility] [address] SystemUrea nitrogen [Mass/Vol]21 mg/dL5 - 27 mg/dLChildren's Hospital of Philadelphia BASIC METABOLIC PANELon 11-46-6922Qdsrg gap [Moles/Vol]10 mmol/LNormal5-15 [facility] God HospitalComment on above:Performed By: #### LACTS #### [facility] ([address] [place] [address] VIRCalcium [Mass/Vol]9.6 mg/dLNormal8.5-10.5POhioHealth Pickerington Methodist HospitalComment on above:Performed By: #### LACTS #### [facility] ([address] [place] [address] VIRChloride [Moles/Vol]98 mmol/SHmvvml15-834IqyTbzblgSt. John of God HospitalComment on above:Performed By: #### LACTS #### [facility] ([address] [place] [address] VIRCO2 [Moles/Vol]35 mmol/AFsph84-04GxsCnzaiuCommunity Memorial Hospital of [facility] Comment on above:Performed By: #### LACTS #### [facility] ([address] [address] VIRCreatinine [Mass/Vol]1.47 mg/dLHigh0.40-1.00ProPeterson Regional Medical CenterComment on above:Result Comment: METHOD TRACEABLE TO IDMS STANDARDPerformed By: #### LACTS #### [facility] ([address] [address] VIRGFR/1.73 sq M.predicted among non-blacks MDRD (S/P/Bld) [Vol rate/Area]40 mL/min/{1.73_m2}Low>=60ProPeterson Regional Medical CenterComment on above:Result Comment: Reported eGFR is based on the CKD-EPI 2020 equation that does not use a race coefficient.Performed By: #### LACTS #### [facility] ([address] [address] VIRGlucose [Mass/Vol]110 mg/bCXqgk52-88FqgHlkjkdPeterson Regional Medical CenterComment on above:Performed By: #### LACTS #### [facility] ([address] [address] VIRPotassium [Moles/Vol]4.5 mmol/LNormal3.5-5.0ProPeterson Regional Medical CenterComment on above:Performed By: #### LACTS #### [facility] ([address] [address] VIRSodium [Moles/Vol]143 mmol/MXmvuku116-278GotUjtyzn Fremont HospitalComment on above:Performed By: #### LACTS #### [facility] ([address] [address] VIRUrea nitrogen [Mass/Vol]23 mg/dLNormal5-27ProPeterson Regional Medical CenterComment on above:Performed By: #### LACTS #### [facility] ([address] [place] [address] VIRBASIC METABOLIC PANELon 92-85-3608Iqeet gap [Moles/Vol]6 mmol/LNormal5-15St. John of God HospitalComment on above:Performed By: #### VBG #### [facility] ([address] [place] [address] VIRCalcium [Mass/Vol]9.2 mg/dLNormal8.5-10.5POhioHealth Pickerington Methodist HospitalComment on above:Performed By: #### VBG #### [facility] ([address] [place] [address] VIRChloride [Moles/Vol]103 mmol/ITmwszk19-745JxzPpxcbmPeterson Regional Medical CenterComment on above:Performed By: #### VBG #### [facility] ([address] [place] [address] VIRCO2 [Moles/Vol]34 mmol/XBkmf99-34SliWqfsksOhioHealth Pickerington Methodist Hospital Comment on above:Performed By: #### VBG #### [facility] ([address] [place] [address] VIRCreatinine [Mass/Vol]0.84 mg/dLNormal0.40-1.00ProPeterson Regional Medical CenterComment on above:Result Comment: METHOD TRACEABLE TO IDMS STANDARDPerformed By: #### VBG #### [facility] ([address] [place] [address] VIRGFR/1.73 sq M.predicted among non-blacks MDRD (S/P/Bld) [Vol rate/Area]79 mL/min/{1.73_m2}Normal>=60ProPeterson Regional Medical CenterComment on above:Result Comment: eGFR not reported due to non-numeric value for Creatinine. Reported eGFR is based on the CKD-EPI 2020 equation that does not use a race coefficient.Performed By: #### VBG #### [facility] ([address] [place] [address] VIRGlucose [Mass/Vol]126 mg/xPPnsw83-73TvmSwkeesPeterson Regional Medical CenterComment on above:Performed By: #### VBG #### [facility] ([address] [place] [address] VIRPotassium [Moles/Vol]4.3 mmol/LNormal3.5-5.0ProPeterson Regional Medical CenterComment on above:Performed By: #### VBG #### [facility] ([address] [place] [address] VIRSodium [Moles/Vol]143 mmol/GRyqder086-191ZelPdnpzr [facility]ont HospitalComment on above:Performed By: #### VBG #### [facility] ([address] [place] [address] VIRUrea nitrogen [Mass/Vol]24 mg/dLNormal5-27ProPeterson Regional Medical CenterComment on above:Performed By: #### VBG #### [facility] ([address] [place] [address] VIRBLOOD GAS, VENOUSon 49-07-1453RMJH,PPHGJC60.0 mmol/LHigh 0.0-2.0ProPeterson Regional Medical CenterComment on above:Performed By: #### LACTS #### [facility] ([address] [place] [address] VIRHCO3 (Bld) [Moles/Vol]37.4 mmol/LHigh20.0-24.0St. John of God HospitalComment on above:Performed By: #### LACTS #### [facility] ([address] [place] [address] VIROxygen saturation in Blood80.0 %NormalProPeterson Regional Medical CenterComment on above:Performed By: #### LACTS #### [facility] ([address] [place] [address] VIRPCO2 MMUYUW59.6 ttZsZmwq91.0-50.0[facility] Comment on above:Performed By: #### LACTS #### [facility] ([address] [place] [address] VIRPH VENOUS7.438Yfcroq0.320-7.420[facility] Comment on above:Performed By: #### LACTS #### [facility] ([address] [place] [address] VIRPO2 ILJLHV67 soDoGhrmgg92-14QixUjnouiSt. John of God Hospital Comment on above:Performed By: #### LACTS #### [facility] ([address] [place] [address] VIRPOC RAVINDRA'S TESTN/ANormalProPeterson Regional Medical CenterComment on above:Performed By: #### LACTS #### [facility] ([address] [place] [address] VIRSAMPLE SITEN/ANormalSt. John of God HospitalComment on above:Performed By: #### LACTS #### [facility] ([address] [place] [address] VIRSAMPLE TYPEVENOUSNormalSt. John of God HospitalComment on above:Performed By: #### LACTS #### [facility] ([address] [place] [address] VIRSOURCE OF OXYGENNCNormalSt. John of God HospitalComment on above:Performed By: #### LACTS #### [facility] ([address] [place] [address] VIRBLOOD GAS, VENOUSVBG BLOOD GAS, VENOUS CancelledNormal St. John of God HospitalPHOSPHORUSon 40-22-8023Rqcvlyayp [Mass/Vol]3.1 mg/dL Normal2.4-4.9St. John of God HospitalComment on above:Performed By: #### LACTS #### [facility] ([address] [place] [address] VIRBASIC METABOLIC PANELon 22-80-5308Pzqog gap [Moles/Vol]7 mmol/LNormal5-15ProPeterson Regional Medical CenterComment on above:Performed By: #### VBG #### [facility] ([address] [place] [address] VIRCalcium [Mass/Vol]8.8 mg/dLNormal8.5-10.5POhioHealth Pickerington Methodist HospitalComment on above:Performed By: #### VBG #### [facility] ([address] [place] [address] VIRChloride [Moles/Vol]96 mmol/PUfj29-156ZusKgkyxhPeterson Regional Medical CenterComment on above:Performed By: #### VBG #### [facility] ([address] [place] [address] VIRCO2 [Moles/Vol]34 mmol/FBeye86-72LnvAaqbbgOhioHealth Pickerington Methodist Hospital Comment on above:Performed By: #### VBG #### [facility] ([address] [place] [address] VIRCreatinine [Mass/Vol]0.91 mg/dLNormal0.40-1.00ProPeterson Regional Medical CenterComment on above:Result Comment: METHOD TRACEABLE TO IDMS STANDARDPerformed By: #### VBG #### [facility] ([address] [place] [address] VIRGFR/1.73 sq M.predicted among non-blacks MDRD (S/P/Bld) [Vol rate/Area]71 mL/min/{1.73_m2}Normal>=60ProPeterson Regional Medical CenterComment on above:Result Comment: eGFR not reported due to non-numeric value for Creatinine. Reported eGFR is based on the CKD-EPI 2021 equation that does not use a race coefficient.Performed By: #### VBG #### [facility] ([address] [place] [address] VIRGlucose [Mass/Vol]140 mg/eOZdzp09-65TbaXchxtcPeterson Regional Medical CenterComment on above:Performed By: #### VBG #### [facility] ([address] [place] [address] VIRPotassium [Moles/Vol]4.0 mmol/LNormal3.5-5.0ProPeterson Regional Medical CenterComment on above:Performed By: #### VBG #### [address] [place] [address] VIRSodium [Moles/Vol]137 mmol/DIptayd086-137RfgAfypui [facility]remont HospitalComment on above:Performed By: #### VBG #### [address] [place] [address] VIRUrea nitrogen [Mass/Vol]19 mg/dLNormal5-27ProPeterson Regional Medical CenterComment on above:Performed By: #### VBG #### [address] [place] [address] VIRBEDSIDE GLUCOSEon 85-71-2753Frceyqm [Mass/Vol]147 mg/dLHigh 65-99ProPeterson Regional Medical CenterComment on above:Performed By: #### VBG #### [facility] ([address] [place] [address] VIRGlucose [Mass/Vol]144 mg/rTFdpx26-28TexKvkwdcPeterson Regional Medical CenterComment on above:Performed By: #### VBG #### [facility] ([address] [place] [address] VIRBLOOD GAS, VENOUSon 08-24-9154CHMS,EXCESS7.0 mmol/LHigh 0.0-2.0St. [facility] of God HospitalComment on above:Performed By: #### VBG #### [facility] ([address] [place] [address] VIRHCO3 (Bld) [Moles/Vol]34.7 mmol/LHigh20.0-24.0St. [facility] of God HospitalComment on above:Performed By: #### VBG #### [facility] ([address] [place] [address] VIROxygen saturation in Blood81.0 %NormalProPeterson Regional Medical CenterComment on above:Performed By: #### VBG #### [address] [place] [address] VIRPCO2 YKRPMC14.3 dxOdQmic59.0-50.0[facility] Comment on above:Performed By: #### VBG #### [facility] ([address] [place] [address] VIRPH VENOUS7.671Juqjjk5.320-7.420[facility] Comment on above:Performed By: #### VBG #### [facility] ([address] [place] [address] VIRPO2 HKMQTI83 xtDuPmmkby90-91HukGpczthSt. John of God Hospital Comment on above:Performed By: #### VBG #### [facility] ([address] [place] [address] VIRPOC RAVINDRA'S TESTN/ANormalProPeterson Regional Medical CenterComment on above:Performed By: #### VBG #### [facility] ([address] [place] [address] VIRSAMPLE SITEN/ANormalProPeterson Regional Medical CenterComschoolcraft memorial hospital on above:Performed By: #### VBG #### [facility]ENTERM[facility] ([facility]) [address] [place] [address]. [place] [address] VIRSAMPLE TYPEVENOUSNoCincinnati VA Medical CenterComschoolcraft memorial hospital on above:Performed By: #### VBG #### [facility]ENTERMindi [facility] ([facility]) [address] [place] [address]. [place] [address] VIRSOURCE OF OXYGENNCNormalSt. John of God HospitalComschoolcraft memorial hospital on above:Performed By: #### VBG #### [facility]ENTERMindi [facility] ([address] [place] [address] VIRBLOOD GAS, VENOUSVBG BLOOD GAS, VENOUS CancelledNormal [facility] WITH AUTO DIFFERENTIALon 84-02-2753PRQAGAHAT ABSOLUTE COUNT (10*3/UL) BY AUTOMATED COUNT0.0 10*3/uLNormal0.0-0.2[facility] on above:Result Comment: This is an appended report. These results have been appended to a previously preliminary verified report. Performed By: #### VBG #### [facility]ENTERMindi [facility] ([address] [place] [address] VIRBASOPHILS RELATIVE PERCENT BY AUTOMATED COUNT0.2 %Normal [facility] on above:Result Comment: This is an appended report. These results have been appended to a previously preliminary verified report.Performed By: #### VBG #### [facility]ENTERMindi [facility] ([address] [place] [address] VIRCELLAVISION ANISOCYTOSIS IN BLOOD BY LIGHT MICROSCOPY2+ [facility] on above:Result Comment: This is an appended report. These results have been appended to a previously preliminary verified report.Performed By: #### VBG #### [facility] ([address] [place] [address] VIRCELLAVISION DIFFERENTIAL TYPEAUTOMATED DIFFERENTIALNormal [facility] on above:Result Comment: This is an appended report. These results have been appended to a previously preliminary verified report.Performed By: #### VBG #### [facility] ([facility]LY [facility]) [address] [place] [id number] VIRCELLAVISION MICROCYTES IN BLOOD BY LIGHT MICROSCOPY2+[facility] on above:Result Comment: This is an appended report. These results have been appended to a previously preliminary verified report.Performed By: #### VBG #### [facility] ([address] [address] VIRCELLAVISION RBC [facility]PHOLOGYabnormalNormalP[facility] on above:Result Comment: This is an appended report. These results have been appended to a previously preliminary verified report.Performed By: #### VBG #### [facility] ([facility]) [address] [place] [address] VIRCELLAVISION STOMATOCYTES IN BLOOD BY LIGHT MICROSCOPY3+ NormalPike Community Hospital on above:Result Comment: This is an appended report. These results have been appended to a previously preliminary verified report.Performed By: #### VBG #### [facility] ([address] [address] VIREosinophils (Bld) [#/Vol]0.0 10*3/uLNormal0.0-0.4[facility] on above:Result Comment: This is an appended report. These results have been appended to a previously preliminary verified report. Performed By: #### VBG #### [facility] ([facility]) [address] [place] [address] VIREOSINOPHILS RELATIVE PERCENT BY AUTOMATED COUNT0.0 %Normal [facility] on above:Result Comment: This is an appended report. These results have been appended to a previously preliminary verified report.Performed By: #### VBG #### [facility] ([address] [address] VIRErythrocyte distribution width (RBC) [Ratio]19.6 %High 11.5-15[facility] God HospitalComment on above:Performed By: #### VBG #### [facility] ([address] [address] VIRHematocrit (Bld) [Volume fraction]27.7 %Zsv19-66BfqOcdqrwPeterson Regional Medical CenterComment on above:Performed By: #### VBG #### [facility] ([address] [address] VIRHemoglobin (Bld) [Mass/Vol]8.2 g/dLLow11.7-15.5POhioHealth Pickerington Methodist HospitalComment on above:Performed By: #### VBG #### [facility] ([address] [address] VIRLYMPHOCYTES ABSOLUTE COUNT (10*3/UL) BY AUTOMATED COUNT0.5 10*3/uLLow1.0-3.5POhioHealth Pickerington Methodist HospitalComment on above:Result Comment: This is an appended report. These results have been appended to a previously prelimi nary verified report.Performed By: #### VBG #### [facility] ([address] [address] VIRLYMPHOCYTES RELATIVE PERCENT BY AUTOMATED COUNT5.3 %Normal [facility] God HospitalComschoolcraft memorial hospital on above:Result Comment: This is an appended report. These results have been appended to a previously preliminary verified report.Performed By: #### VBG #### [facility] ([address] [address] VIRMCH (RBC) [Entitic mass]19.4 iyUin76-58SwuMttfrnPeterson Regional Medical CenterComment on above:Performed By: #### VBG #### [facility] ([place] [address] [facility] [place] [place] [address] VIRMCHC (RBC) [Mass/Vol]29.7 g/uAXlp28-00GugDjbpjxPeterson Regional Medical CenterComment on above:Performed By: #### VBG #### [facility] ([address] [address] VIRMCV (RBC) [Entitic vol]65 aJYlo07-778HiiLrtlpePeterson Regional Medical CenterComment on above:Performed By: #### VBG #### [facility] ([address] [address] VIRMONOCYTES ABSOLUTE COUNT (10*3/UL) BY AUTOMATED COUNT0.2 10*3/uLNormal0.0-0.9ProThe Medical Center of [facility] [place] on above:Result Comment: This is an appended report. These results have been appended to a previously preliminary verified report.Performed By: #### VBG #### [facility] ([address] [address] VIRMONOCYTES RELATIVE PERCENT BY AUTOMATED COUNT2.3 %Normal [facility] God HospitalComschoolcraft memorial hospital on above:Result Comment: This is an appended report. These results have been appended to a previously preliminary verified report.Performed By: #### VBG #### [facility] ([address] [address] VIRNEUTROPHILS ABSOLUTE COUNT BY AUTOMATED COUNT8.3 10*3/uL High1.5-6.6ProPeterson Regional Medical CenterComschoolcraft memorial hospital on above:Result Comment: This is an appended report. These results have been appended to a previously preliminary verified report.Performed By: #### VBG #### [facility] ([address] [address] VIRNEUTROPHILS RELATIVE PERCENT BY AUTOMATED COUNT92.2 %Normal [facility] of God HospitalComschoolcraft memorial hospital on above:Result Comment: This is an appended report. These results have been appended to a previously preliminary verified report.Performed By: #### VBG #### [facility] ([address] [address] VIRPlatelet mean volume (Bld) [Entitic vol]7.[address]LNormal7-12 [address] [facility] God HospitalComment on above:Performed By: #### VBG #### [facility] ([address] [address] VIRPlatelets (Bld) [#/Vol]238 10*3/fTSifbbf672-265TwqUuokgtSt. John of God HospitalComment on above:Performed By: #### VBG #### [facility] ([address] [address] VIRRBC COUNT4.24 X10E12/LNormal3.8-5.2ProMedica [facility] Medical CenterComment on above:Performed By: #### VBG #### [facility] ([address] [address] VIRWBC (Bld) [#/Vol]9.1 10*3/uLNormal4-11St. [facility] HospitalComment on above:Performed By: #### VBG #### [facility] ([address] [address] VIRLOWER RESP CULTURE SPUTUM CULTURE INC GRAM STAINon [id number] RESP CULTURE SPUTUM CULTURE INC GRAM STAINCULTURE RESULTS CULTURE CANCELLED. SPECIMEN DOES NOT MEET CRITERIA FOR CULTURING. PLEASE REORDER AND RESUBMIT. GRAM STAIN >25 Squamous Epithelial Cells/LPF with Mixed Bacterial Types Seen. Regarded as Saliva not SputumNormalSt. John of God HospitalComment on above:Performed By: #### LACTS #### [facility] ([address] [address] VIRPHOSPHORUSon 45-69-1323Ectxpdqhq [Mass/Vol]2.3 mg/dLLow 2.4-4.9ProPeterson Regional Medical CenterComment on above:Performed By: #### VBG #### [facility] ([facility]) [address] [place] [address] [place] [address] VIRB-TYPE NATRIURETIC PEPTIDEon 87-93-3654Csxvkhxrunr peptide B (Bld) [Mass/Vol]259 pg/mLHigh<=100ProPeterson Regional Medical CenterComment on above: Performed By: #### BMP #### [facility] ([facility]) [address] [place] [address] VIRBEDSIDE GLUCOSEon 70-60-6133Cglqndp [Mass/Vol]125 mg/dLHigh 65-99ProPeterson Regional Medical CenterComment on above:Performed By: #### VBG #### [facility] ([address] [place] [address] VIRGlucose [Mass/Vol]165 mg/jSSadd77-83HboBychva [facility]remont HospitalComment on above:Performed By: #### VBG #### [facility] ([address] [place] [address] VIRGlucose [Mass/Vol]196 mg/rARckb64-17MmeTlynij [facility]remont HospitalComment on above:Performed By: #### BMP #### [facility] ([facility]) [address] [place] [address] VIRGlucose [Mass/Vol]167 mg/dICjnm85-69HssSplkiz [facility] HospitalComment on above:Performed By: #### BMP #### [facility] ([facility]) [address] [place] [address] VIRBLOOD GAS, VENOUSon 39-33-8829QMXZ,EXCESS7.0 mmol/LHigh 0.0-2.0ProPeterson Regional Medical CenterComment on above:Performed By: #### BMP #### [facility] ([facility]) [address] [place] [address] VIRHCO3 (Bld) [Moles/Vol]36.1 mmol/LHigh20.0-24.0St. [facility] God HospitalComment on above:Performed By: #### BMP #### [facility] ([facility]) [address] [place] [address] VIRINSP. O2 CONC.50 %[facility] Bing, MD, Cancer CenterComment on above:Performed By: #### BMP #### [facility] ([facility]) [address] [place] [address] VIROxygen saturation in Blood38.0 %[facility], MD, Cancer CenterComment on above:Performed By: #### BMP #### [facility] ([facility]) [address] [place] [address] VIRPCO2 OKUHER28.0 faHfBpjt29.0-50.0[facility] Comment on above:Performed By: #### BMP #### [facility] ([facility]) [address] [place] [address] VIRPH VENOUS7.448Wcm9.320-7.420[facility] Comment on above:Performed By: #### BMP #### [facility] ([facility]) [address] [place] [address] VIRPO2 HZJZPS60 pnQvPjt12-71VltAdluqrSt. John of God HospitalComment on above:Performed By: #### BMP #### [facility] ([facility]) [address] [place] [address] VIRPOC RAVINDRA'S TESTN/ANormalSt. John of God HospitalComment on above:Performed By: #### BMP #### [facility] ([facility]) [address] [place] [address] VIRSAMPLE SITEN/ANormalProPeterson Regional Medical CenterComment on above:Performed By: #### BMP #### [facility] ([facility]) [address] [place] [address] VIRSAMPLE TYPEVENOUSNormalSt. John of God HospitalComment on above:Performed By: #### BMP #### [facility] ([facility]) [address] [place] [address] VIRSOURCE OF OXYGENNCNormalSt. John of God HospitalComment on above:Performed By: #### BMP #### [facility] ([facility]) [address] [place] [address] VIRBLOOD GAS, VENOUSVBG BLOOD GAS, VENOUS CancelledNormal St. [facility] HospitalBASE,EXCESS6.0 mmol/LHigh0.0-2.0St. [facility] God HospitalComment on above:Performed By: #### VBG ####[facility] ([facility])[address] [facility] [place] [address] VIRHCO3 (Bld) [Moles/Vol]38.1 mmol/LHigh20.0-24.0St. [facility] God HospitalComment on above:Performed By: #### VBG ####[facility] ([facility])[address] [place] [address] VIRINSP. O2 CONC.40 %[facility] Comment on above:Performed By: #### VBG ####[facility] ([facility])[address] [place] [address].[place] [address] VIROxygen saturation in Blood38.0 % [facility], MD, Cancer CenterComment on above:Performed By: #### VBG ####[facility] ([facility])[address] [place] [address].[place], [place] [address] VIRPCO2 FQOYSL860.3 tgUoYpkv65.0-50.0St. [facility] HospitalComment on above:Performed By: #### VBG ####[facility] ([facility])[address] [place] [address].[place] [address] VIRPH VENOUS7.550Abq9.320-7.420ProMedica Whittemore HospitalComment on above:Performed By: #### VBG ####[facility]ITALM[facility] ([facility])[address] [place] [address] [place] [address] VIRPO2 TDABJO91 mmHg Obs61-39QcuRqhlujPeterson Regional Medical CenterComment on above:Performed By: #### VBG ####[facility]ENTERMindi [facility] ([facility])[address] [place] [address] [address]VE.[place], [place] [address] VIRPOC RAVINDRA'S TESTN/ANormalSt. John of God HospitalComment on above: Performed By: #### VBG ####[facility]ENTERMindi [facility] ([facility])[address] [place] [address] [place] [address] VIRSAMPLE SITEN/[facility] Comment on above:Performed By: #### VBG ####[facility]ENTERMindi [facility] ([facility])[address] [place] [address] [place] [address] VIRSAMPLE TYPEVENOUSNormalSt. John of God HospitalComment on above:Performed By: #### VBG ####[facility]ENTERMindi [facility] ([facility])[address] [place] [address] [place] [address] VIRSOURCE OF OXYGEN NPPVNoCincinnati VA Medical CenterComment on above:Performed By: #### VBG ####[facility]ENTERMindi [facility] ([facility])[address] [place] [address] [address]VE.[place], [place] [address] VIRBLOOD GAS, VENOUSVBG BLOOD GAS, VENOUS CancelledNormalSt. John of God HospitalCB WITH AUTO DIFFERENTIALon 07-47-3454Xpzjckxzcm stippling LM Ql (Bld) 1+NormalProPeterson Regional Medical CenterComment on above:Result Comment: This is an appended report. These results have been appended to a previously preliminary verified report.Performed By: #### BMP #### [facility] ([facility]) [address] [place] [address] VIRBASOPHILS ABSOLUTE COUNT (10*3/UL) BY AUTOMATED COUNT0.0 10*3/uLNormal0.0-0.2ProMedica [facility] Medical CenterComschoolcraft memorial hospital on above:Result Comment: This is an appended report. These results have been appended to a previously preliminary verified report.Performed By: #### BMP #### [facility] ([facility]) [address] [place] [address] VIRBASOPHILS RELATIVE PERCENT BY AUTOMATED COUNT0.2 %Normal [facility] of God HospitalComschoolcraft memorial hospital on above:Result Comment: This is an appended report. These results have been appended to a previously preliminary verified report.Performed By: #### BMP #### [facility] ([facility]) [address] [place] [address] VIRCELLAVISION DIFFERENTIAL TYPEAUTOMATED DIFFERENTIALNoal St. [facility] of God HospitalComschoolcraft memorial hospital on above:Result Comment: This is an appended report. These results have been appended to a previously preliminary verified report.Performed By: #### BMP #### [facility] ([facility]) [address] [place] [address] VIRCELLAVISION ELLIPTOCYTES IN BLOOD BY LIGHT MICROSCOPY1+ NormalSt. John of God HospitalComschoolcraft memorial hospital on above:Result Comment: This is an appended report. These results have been appended to a previously preliminary verified report.Performed By: #### BMP #### [facility] ([facility]) [address] [place] [address] VIRCELLAVISION POLYCHROMASIA IN BLOOD BY LIGHT MICROSCOPY1+ NormalProThe Medical Center of [facility] [place] on above:Result Comment: This is an appended report. These results have been appended to a previously preliminary verified report.Performed By: #### BMP #### [facility] ([facility]) [address] [place] [address] VIRCELLAVISION STOMATOCYTES IN BLOOD BY LIGHT MICROSCOPY1+ NormalPike Community Hospital on above:Result Comment: This is an appended report. These results have been appended to a previously preliminary verified report.Performed By: #### BMP #### [facility] ([facility]) [address] [place] [address] VIREosinophils (Bld) [#/Vol]0.0 10*3/uLNormal0.0-0.4[facility] on above:Result Comment: This is an appended report. These results have been appended to a previously preliminary verified report. Performed By: #### BMP #### [facility] ([facility]) [address] [place] [address] VIREOSINOPHILS RELATIVE PERCENT BY AUTOMATED COUNT0.0 %Normal [facility] of God HospitalComschoolcraft memorial hospital on above:Result Comment: This is an appended report. These results have been appended to a previously preliminary verified report.Performed By: #### BMP #### [facility] ([facility]) [address] [place] [address] VIRErythrocyte distribution width (RBC) [Ratio]20.2 %High 11.5-15ProPeterson Regional Medical CenterComment on above:Performed By: #### BMP #### [facility] ([facility]) [address] [place] [address] VIRHematocrit (Bld) [Volume fraction]34.4 %Tkj88-95XdrAqglejSt. John of God HospitalComment on above:Performed By: #### BMP #### [facility] ([facility]) [address] [place] [address] VIRHemoglobin (Bld) [Mass/Vol]9.8 g/dLLow11.7-15.5POhioHealth Pickerington Methodist HospitalComschoolcraft memorial hospital on above:Performed By: #### BMP #### [facility] ([facility]) [address] [place] [address] VIRLYMPHOCYTES ABSOLUTE COUNT (10*3/UL) BY AUTOMATED COUNT0.5 10*3/uLLow1.0-3.5POhioHealth Pickerington Methodist HospitalComschoolcraft memorial hospital on above:Result Comment: This is an appended report. These results have been appended to a previously prelimi nary verified report.Performed By: #### BMP #### [facility] ([facility]) [address] [place] [address] VIRLYMPHOCYTES RELATIVE PERCENT BY AUTOMATED COUNT3.7 %Normal [facility] God HospitalComschoolcraft memorial hospital on above:Result Comment: This is an appended report. These results have been appended to a previously preliminary verified report.Performed By: #### BMP #### [facility] ([facility]) [address] [place] [address] VIRMCH (RBC) [Entitic mass]19.1 fjRgg49-99AzsGyvxcrPeterson Regional Medical CenterComment on above:Performed By: #### BMP #### [facility] ([facility]) [address] [place] [address] VIRMCHC (RBC) [Mass/Vol]28.5 g/vBHas35-09AhqUlsqgnPeterson Regional Medical CenterComment on above:Performed By: #### BMP #### [facility] ([facility]) [address] [place] [address] VIRMCV (RBC) [Entitic vol]67 pDMke02-774IlqNozrxePeterson Regional Medical CenterComment on above:Performed By: #### BMP #### [facility] ([facility]) [address] [place] [address] VIRMONOCYTES ABSOLUTE COUNT (10*3/UL) BY AUTOMATED COUNT0.9 10*3/uLNormal0.0-0.9St. [facility] HospitalComschoolcraft memorial hospital on above:Result Comment: This is an appended report. These results have been appended to a previously preliminary verified report.Performed By: #### BMP #### [facility] ([facility]) [address] [place] [address] VIRMONOCYTES RELATIVE PERCENT BY AUTOMATED COUNT6.7 %Normal [facility] God HospitalComschoolcraft memorial hospital on above:Result Comment: This is an appended report. These results have been appended to a previously preliminary verified report.Performed By: #### BMP #### [facility] ([facility]) [address] [place] [address] VIRNEUTROPHILS ABSOLUTE COUNT BY AUTOMATED COUNT12.0 10*3/uL High1.5-6.6St. [facility] HospitalComschoolcraft memorial hospital on above:Result Comment: This is an appended report. These results have been appended to a previously preliminary verified report.Performed By: #### BMP #### [facility] ([facility]) [address] [place] [address] VIRNEUTROPHILS RELATIVE PERCENT BY AUTOMATED COUNT89.4 %Normal [facility] God HospitalComschoolcraft memorial hospital on above:Result Comment: This is an appended report. These results have been appended to a previously preliminary verified report.Performed By: #### BMP #### [facility] ([facility]) [address] [place] [address] VIRPlatelet mean volume (Bld) [Entitic vol]6.9 fLLow7-12 [facility] HospitalComment on above:Performed By: #### BMP #### [facility] ([facility]) [address] [place] [address] VIRPlatelets (Bld) [#/Vol]354 10*3/mAJoliqk734-213MwqXpphmk [facility]remont HospitalComment on above:Performed By: #### BMP #### [facility] ([facility]) [address] [place] [address] VIRRBC COUNT5.13 X10E12/LNormal3.8-5.2POhioHealth Pickerington Methodist HospitalComschoolcraft memorial hospital on above:Performed By: #### BMP #### [facility] ([facility]) [address] [place] [address] VIRWBC (Bld) [#/Vol]13.5 10*3/uLHigh4-11St[facility] HospitalComschoolcraft memorial hospital on above:Performed By: #### BMP #### [facility] ([facility]) [address] [place] [address] VIRCOMPREHENSIVE METABOLIC PANELon 56-74-1068Anufuul [Mass/Vol] 3.7 g/dLNormal3.2-5.3POhioHealth Pickerington Methodist HospitalComment on above:Performed By: #### CMP ####[facility] ([place] [address] [address] VIRALP [Catalytic activity/Vol]138 U/STxdc97-888GtwLmyvjiPeterson Regional Medical CenterComment on above:Performed By: #### CMP ####[facility] ([address] [place] [address] VIRALT [Catalytic activity/Vol]36 U/LHigh<=31POhioHealth Pickerington Methodist HospitalComment on above:Performed By: #### CMP ####[facility] ([address] [place] [address] VIRAnion gap [Moles/Vol]9 mmol/LNormal5-15ProPeterson Regional Medical CenterComment on above:Performed By: #### CMP ####[facility] ([address] [place] [address] VIRAST [Catalytic activity/Vol]38 U/LNormal<=41ProPeterson Regional Medical CenterComment on above: Performed By: #### CMP ####[facility] ([address] [place] [address] VIRBilirubin [Mass/Vol]0.3 mg/dLNormal0.3-1.2 [facility] HospitalComment on above:Performed By: #### CMP ####[facility] ([address] [place] [address] VIRCalcium [Mass/Vol]9.0 mg/dLNormal8.5-10.5POhioHealth Pickerington Methodist HospitalComment on above: Performed By: #### CMP ####[facility] ([place] [address] [place] [address] VIRChloride [Moles/Vol]96 mmol/YYue18-991OqiMigzhtPeterson Regional Medical CenterComment on above:Performed By: #### CMP ####[facility] ([facility])[address] [place] [address].[place] [address] VIRCO2 [Moles/Vol]36 mmol/BJkps54-30XtfBclite [facility] Medical CenterComment on above:Performed By: #### CMP ####[facility] ([facility])[address] [place] [address] VIRCreatinine [Mass/Vol]1.45 mg/dLHigh0.40-1.00[facility] Comment on above:Result Comment: METHOD TRACEABLE TO IDMS STANDARDPerformed By: #### CMP ####[facility] ([address] [address] VIRGFR/1.73 sq M.predicted among non-blacks MDRD (S/P/Bld) [Vol rate/Area]41 mL/min/{1.73_m2}Low>=60ProPeterson Regional Medical CenterComment on above:Result Comment: eGFR not reported due to non-numeric value for Creatinine. Reported eGFR is based on the CKD-EPI 2021 equation that does not use a race coefficient.Performed By: #### CMP ####[facility] ([address] [address] VIRGlucose [Mass/Vol]133 mg/yGAvyt41-33RalTqtermPeterson Regional Medical CenterComment on above:Performed By: #### CMP ####[facility] ([facility])[address] [place] [phone] VIRPotassium [Moles/Vol]4.2 mmol/LNormal3.5-5.0[facility] Comment on above:Performed By: #### CMP ####[facility] ([facility])[address] [place] [id number] VIRProtein [Mass/Vol]7.8 g/dLNormal 6.0-8.0ProPeterson Regional Medical CenterComment on above:Performed By: #### CMP ####[facility] ([facility])[address], [place] [address] VIRSodium [Moles/Vol]141 mmol/YGrpsxp642-841QaxBopachSt. John of God Hospital Comment on above:Performed By: #### CMP ####[facility] ([facility])[address] [place] [address] VIRUrea nitrogen [Mass/Vol]21 mg/dL Normal5-27ProPeterson Regional Medical CenterComment on above:Performed By: #### CMP ####[facility] ([facility], [place] [address] VIRLACTATE W/ REFLEXon [id number] W/REFLEX1.0 mmol/LNormal0.4-2.0 [facility] John of God HospitalComment on above:Order Comment: Result did not trigger repeat Lactate,re-order if needed.Performed By: #### LACTS ####[facility] ([facility])[address] [place] [address] VIR PHOSPHORUSon 57-38-2471Ckniyeubg [Mass/Vol]6.1 mg/dLHigh2.4-4.9ProPeterson Regional Medical CenterComment on above:Performed By: #### BMP #### [facility] ([facility]) [address] [place] [address] VIRPROCALCITONINon 64-16-3442SNZWKBRHZQMER7.13 ng/mLHigh<0.05 St. John of God HospitalComment on above:Order Comment: <0.50 ng/mL - Low risk of severe sepsis and/or septic shock.<2.00 ng/mL - Recommend retesting within 6-24 hours.>2.00 ng/mL - High risk of sepsis and/or septic shock.Performed By: #### BMP #### [facility] ([facility]) [address] [place] [address] VIRTROP I, HIGH SENSITIVITY 1 HOURon 29-86-3177SWLCMDDZ I, HIGH XAXBLXHPXTB13 ng/LHigh<16ProPeterson Regional Medical CenterComment on above:Order Comment: Elevations of hs-Troponin may be due to causesother than myocardial ischemia.Recommend serial hs-Troponin testing be performed.For the initial evaluation and management of chestpain patients, refer to the algorithms linked below.Emergency Patient:[email or web address]'s Up/dv/dl.aspx?d= [email or web address]=acaeaInpatient:[email or web address]'s [email or web address]/[email or web address]?d =[email or web address]=acaeaPerformed By: #### BMP #### [facility] ([facility]) [address] [place] [address] VIRTROPONIN I, HIGH SENSITIVITY 0 HOURon 72-22-2122EXGZRKRR I, HIGH TUIVXMLKKJQ25 ng/LHigh<16ProPeterson Regional Medical CenterComment on above: Performed By: #### BMP #### [facility] ([facility]) [address] [place] [address] VIRXR CHEST 1 VWon 42-94-6766PI CHEST 1 VWXR CHEST 1 VW Single view chest History:SOB Difficulty breathing, shortness of breath Comparison: 12/03/2024 Findings: Single portable view of the chest. Right lower lung atelectasis versus pneumonia, stable. Stable cardiac mediastinal silhouette. Prior median sternotomy. Impression: No significant interval change. Finalized by Victor Hugo Kim MD on 12/04/2024 7:13 AMNormalProPeterson Regional Medical CenterB-TYPE NATRIURETIC PEPTIDEon 76-88-8031Puflfebgdrh peptide B (Bld) [Mass/Vol]196 pg/mLHigh<=100[facility] on above:Performed By: #### BNP ####[facility] ([address] [place] [address] VIRBLOOD CULTUREon 44-97-2420Stebpzwh identified Cx Nom (Bld)CULTURE RESULTS NO GROWTH 5 DAYSNormalProMedica Whittemore HospitalComment on above:Order Comment: *SIRS Criteria: (must [...] source who are improvingPerformed By: #### BC ####[facility] ([facility])[address], [place] [address] VIRBacteria identified Cx Nom (Bld)CULTURE RESULTS NO GROWTH 5 DAYSOhioHealth Arthur G.H. Bing, MD, Cancer CenterComschoolcraft memorial hospital on above:Order Comment: *SIRS Criteria: (must display 2 without other explanation)-Temperature < 36 or >38-Pulse >90-Resp rate >20-WBC less than 4K or greater than 12KRepeat blood cultures not needed:-To document that a blood culture is a contaminant when 1 of 2 bottles is positive for a common contaminant (already listed in [facility] with the culture result)-To document clearance of gram negative bacteremia in patients with suspected urinary source who are improvingPerformed By: #### BC ####[facility] ([facility])[address], [place] [address] VIRBLOOD GAS, VENOUSon 09-21-3149HJSN,EXCESS6.0 mmol/LHigh0.0-2.0ProPeterson Regional Medical CenterComment on above:Performed By: #### VBG #### [facility] ([facility]) [address] [place] [address] VIRHCO3 (Bld) [Moles/Vol]33.9 mmol/LHigh20.0-24.0St. John of God HospitalComschoolcraft memorial hospital on above:Performed By: #### VBG #### [facility] ([facility]) [address] [place] [address] VIROxygen saturation in Blood50.0 %NormalProPeterson Regional Medical CenterComment on above:Performed By: #### VBG #### [facility] ([address] [place] [address] VIRPCO2 XIQKDV93.5 wxBaHbuv87.0-50.0[facility] Comment on above:Performed By: #### VBG #### [facility] ([address] [place] [address] VIRPH VENOUS7.432Dgq3.320-7.420[facility] Comment on above:Performed By: #### VBG #### [facility] ([address] [place] [address] VIRPO2 ZRQYEL32 zqYxOtfaew46-50OuqShvmsnSt. John of God Hospital Comment on above:Performed By: #### VBG #### [facility] ([address] [place] [address] VIRPOC RAVINDRA'S TESTN/ANormalProPeterson Regional Medical CenterComment on above:Performed By: #### VBG #### [facility] ([address] [place] [address] VIRSAMPLE SITEN/ANormalSt. John of God HospitalComment on above:Performed By: #### VBG #### [facility] ([address] [place] [address] VIRSAMPLE TYPEVENOUSNormalSt. John of God HospitalComment on above:Performed By: #### VBG #### [facility] ([address] [address] VIRSOURCE OF OXYGENNCNormalSt. John of God HospitalComment on above:Performed By: #### VBG #### [facility] ([address] [place] [address] VIRBLOOD GAS, VENOUSVBG BLOOD GAS, VENOUS CancelledNormal [facility] WITH AUTO DIFFERENTIALon 83-39-1358JMPILGRVI ABSOLUTE COUNT (10*3/UL) BY AUTOMATED COUNT0.1 10*3/uLNormal0.0-0.2[facility] on above:Result Comment: This is an appended report. These results have been appended to a previously preliminary verified report. Performed By: #### CBCA #### [facility] ([address] [place] [address] VIRBASOPHILS RELATIVE PERCENT BY AUTOMATED COUNT0.8 %Normal [facility] on above:Result Comment: This is an appended report. These results have been appended to a previously preliminary verified report.Performed By: #### CBCA #### [address] [place] [address] VIRCELLAVISION ANISOCYTOSIS IN BLOOD BY LIGHT MICROSCOPY2+ NormalPike Community Hospital on above:Result Comment: This is an appended report. These results have been appended to a previously preliminary verified report.Performed By: #### CBCA #### [facility] ([address] [place] [address] VIRCELLAVISION DIFFERENTIAL TYPEAUTOMATED DIFFERENTIALFayette County Memorial Hospital on above:Result Comment: This is an appended report. These results have been appended to a previously preliminary verified report.Performed By: #### CBCA #### [facility] ([address] [place] [address] VIRCELLAVISION MICROCYTES IN BLOOD BY LIGHT MICROSCOPY2+Normal [facility] on above:Result Comment: This is an appended report. These results have been appended to a previously preliminary verified report.Performed By: #### CBCA #### [facility] ([address] [place] [address] VIRCELLAVISION RBC MORPHOLOGYReviewedNormalSt. John of God HospitalComschoolcraft memorial hospital on above:Result Comment: This is an appended report. These results have been appended to a previously preliminary verified report.Performed By: #### CBCA #### [facility] ([address] [address] VIREosinophils (Bld) [#/Vol]0.1 10*3/uLNormal0.0-0.4[facility] on above:Result Comment: This is an appended report. These results have been appended to a previously preliminary verified report. Performed By: #### CBCA #### [facility] ([address] [address] VIREOSINOPHILS RELATIVE PERCENT BY AUTOMATED COUNT1.3 %Normal [facility] on above:Result Comment: This is an appended report. These results have been appended to a previously preliminary verified report.Performed By: #### CBCA #### [facility] ([address] [address] VIRErythrocyte distribution width (RBC) [Ratio]19.7 %High 11.5-15St. [facility] of God HospitalComschoolcraft memorial hospital on above:Performed By: #### CBCA #### [facility] ([address] [address] VIRHematocrit (Bld) [Volume fraction]31.1 %Mwt55-34ZjiXbyubmPeterson Regional Medical CenterComment on above:Performed By: #### CBCA #### [facility] ([address] [address] VIRHemoglobin (Bld) [Mass/Vol]9.3 g/dLLow11.7-15.5POhioHealth Pickerington Methodist HospitalComschoolcraft memorial hospital on above:Performed By: #### CBCA #### [facility] ([address] [address] VIRLYMPHOCYTES ABSOLUTE COUNT (10*3/UL) BY AUTOMATED COUNT1.3 10*3/uLNormal1.0-3.5PAC[facility] on above:Result Comment: This is an appended report. These results have been appended to a previously preliminary verified report.Performed By: #### CBCA #### [facility] ([address] [address] VIRLYMPHOCYTES RELATIVE PERCENT BY AUTOMATED COUNT11.2 %Normal [facility] God HospitalComschoolcraft memorial hospital on above:Result Comment: This is an appended report. These results have been appended to a previously preliminary verified report.Performed By: #### CBCA #### [facility] ([address] [address] VIRH (RBC) [Entitic mass]19.3 apNot78-74TqeHketggPeterson Regional Medical CenterComment on above:Performed By: #### CBCA #### [facility] ([address] [address] VIRMCHC (RBC) [Mass/Vol]29.7 g/kBPjs21-40VdwEpjklzSt. John of God HospitalComment on above:Performed By: #### CBCA #### [facility] ([address] [address] VIRMCV (RBC) [Entitic vol]65 bDRks81-990GuuUoiyqePeterson Regional Medical CenterComment on above:Performed By: #### CBCA #### [facility] ([address] [address] VIRMONOCYTES ABSOLUTE COUNT (10*3/UL) BY AUTOMATED COUNT0.7 10*3/uLNormal0.0-0.9[facility] on above:Result Comment: This is an appended report. These results have been appended to a previously preliminary verified report.Performed By: #### CBCA #### [facility] ([address] [address] VIRMONOCYTES RELATIVE PERCENT BY AUTOMATED COUNT5.9 %Normal [facility] God HospitalComschoolcraft memorial hospital on above:Result Comment: This is an appended report. These results have been appended to a previously preliminary verified report.Performed By: #### CBCA #### [facility] ([address] [address] VIRNEUTROPHILS ABSOLUTE COUNT BY AUTOMATED COUNT9.1 10*3/uL High1.5-6.6St. [facility] God HospitalComschoolcraft memorial hospital on above:Result Comment: This is an appended report. These results have been appended to a previously preliminary verified report.Performed By: #### CBCA #### [facility] ([address] [address] VIRNEUTROPHILS RELATIVE PERCENT BY AUTOMATED COUNT80.8 %Normal [facility] God HospitalComschoolcraft memorial hospital on above:Result Comment: This is an appended report. These results have been appended to a previously preliminary verified report.Performed By: #### CBCA #### [facility] ([address] [address] VIRPlatelet mean volume (Bld) [Entitic vol]7.[address] fLNormal7-12 [address] [facility] HospitalComschoolcraft memorial hospital on above:Performed By: #### CBCA #### [facility] ([address] [address] VIRPlatelets (Bld) [#/Vol]391 10*3/nKAosaom745-249XvzRvrqwr [place] HospitalComment on above:Performed By: #### CBCA #### [facility] ([address] [address] VIRRBC COUNT4.79 X10E12/LNormal3.8-5.2POhioHealth Pickerington Methodist HospitalComschoolcraft memorial hospital on above:Performed By: #### CBCA #### [facility] ([address] [address] VIRWBC (Bld) [#/Vol]11.3 10*3/uLHigh4-11St. [facility] of God HospitalComment on above:Performed By: #### CBCA #### [facility] ([place] [address] [place] [address] VIRCOMPREHENSIVE METABOLIC PANELon 86-77-3081Oalabyn [Mass/Vol]3.9 g/dLNormal3.2-5.3POhioHealth Pickerington Methodist HospitalComment on above: Performed By: #### CMP #### [facility] ([place] [address] [place] [address] VIRALP [Catalytic activity/Vol]112 U/XPohmwv57-134JujSqrxtfPeterson Regional Medical CenterComment on above:Performed By: #### CMP #### [place] [address] [place] [address] VIRALT [Catalytic activity/Vol]24 U/LNormal<=31POhioHealth Pickerington Methodist HospitalComment on above:Performed By: #### CMP #### [facility] ([place] [address] [place] [address] VIRAnion gap [Moles/Vol]5 mmol/LNormal5-15ProPeterson Regional Medical CenterComment on above:Performed By: #### CMP #### [facility] ([place] [address] [place] [address] VIRAST [Catalytic activity/Vol]24 U/LNormal<=41ProPeterson Regional Medical CenterComment on above:Performed By: #### CMP #### [facility] ([place] [address] [place] [address] VIRBilirubin [Mass/Vol]0.3 mg/dLNormal0.3-1.2POhioHealth Pickerington Methodist HospitalComment on above:Performed By: #### CMP #### [facility] ([place] [address] [place] [address] VIRCalcium [Mass/Vol]8.4 mg/dLLow8.5-10.5POhioHealth Pickerington Methodist HospitalComment on above:Performed By: #### CMP #### [facility] ([address] [place] [address] VIRChloride [Moles/Vol]101 mmol/JLluoid79-106EsmVklluiPeterson Regional Medical CenterComment on above:Performed By: #### CMP #### [facility] ([address] [place] [address] VIRCO2 [Moles/Vol]34 mmol/OKnpe83-50TtpPmyepeOhioHealth Pickerington Methodist Hospital Comment on above:Performed By: #### CMP #### [facility] ([address] [address] VIRCreatinine [Mass/Vol]1.39 mg/dLHigh0.40-1.00ProPeterson Regional Medical CenterComment on above:Result Comment: METHOD TRACEABLE TO IDMS STANDARDPerformed By: #### CMP #### [facility] ([address] [address] VIRGFR/1.73 sq M.predicted among non-blacks MDRD (S/P/Bld) [Vol rate/Area]43 mL/min/{1.73_m2}Low>=60ProPeterson Regional Medical CenterComment on above:Result Comment: eGFR not reported due to non-numeric value for Creatinine. Reported eGFR is based on the CKD-EPI 2021 equation that does not use a race coefficient.Performed By: #### CMP #### [facility] ([address] [place] [address] VIRGlucose [Mass/Vol]130 mg/wPWqqq93-93XupGavrzdPeterson Regional Medical CenterComment on above:Performed By: #### CMP #### [facility] ([address] [address] VIRPotassium [Moles/Vol]3.5 mmol/LNormal3.5-5.0ProPeterson Regional Medical CenterComment on above:Performed By: #### CMP #### [facility] ([facility]) [address] [place] [address] VIRProtein [Mass/Vol]7.7 g/dLNormal6.0-8.0ProPeterson Regional Medical CenterComment on above:Performed By: #### CMP #### [facility] ([address] [address] VIRSodium [Moles/Vol]140 mmol/TTgaony250-536IbpHmaouj [facility] HospitalComment on above:Performed By: #### CMP #### [facility] ([address] [address] VIRUrea nitrogen [Mass/Vol]16 mg/dLNormal5-27ProPeterson Regional Medical CenterComment on above:Performed By: #### CMP #### [facility] ([address] [address] VIRCT CTA CHESTon 07-69-0900CT CTA CHESTCT CTA CHEST Clinical history: Hypoxia [...] Kai Finn MD on 12/03/2024 4:15 AMNormalProMedica Whittemore HospitalLACTATE W/ REFLEXon 74-53-4532CSVWUMB W/REFLEX0.8 mmol/LNormal0.4-2.0 [facility] HospitalComschoolcraft memorial hospital on above:Order Comment: Result did not trigger repeat Lactate, re-order if needed.Performed By: #### LACTS #### [facility] ([address] [place] [address] VIRTROP I, HIGH SENSITIVITY 1 HOURon 58-28-4830PFUITNBH I, HIGH SENSITIVITY7 ng/LNormal<16ProPeterson Regional Medical CenterComschoolcraft memorial hospital on above: Performed By: #### TNIHS1 ####[facility] ([address] [place] [address] VIRTROPONIN I, HIGH SENSITIVITY 0 HOURon 12-03-2024 TROPONIN I, HIGH SENSITIVITY8 ng/LNormal<16ProPeterson Regional Medical CenterComment on above:Performed By: #### TNIHS0 #### [facility] ([address] [place] [address] VIRXR CHEST 1 VWon 88-51-6200BM CHEST 1 VWXR CHEST 1 VW XR [...] by Kai Finn MD on 12/03/2024 3:36 AMNormalProPeterson Regional Medical CenterBASI METABOLIC PANELon 75-13-3439Foixa gap [Moles/Vol]8 mmol/LNormal 5-15St[facility] God HospitalComment on above:Performed By: #### BMP #### [facility] ([facility]) [address] [place] [address] VIRCalcium [Mass/Vol]9.0 mg/dLNormal8.5-10.5POhioHealth Pickerington Methodist HospitalComment on above:Performed By: #### BMP #### [facility] ([facility]) [address] [place] [address] VIRChloride [Moles/Vol]103 mmol/QHyfgbs38-973QcfRcpmtzPeterson Regional Medical CenterComment on above:Performed By: #### BMP #### [facility] ([facility]) [address] [place] [address] VIRCO2 [Moles/Vol]29 mmol/TMvnzts18-11EzgZdxiybOhioHealth Pickerington Methodist HospitalComment on above:Performed By: #### BMP #### [facility] ([facility]) [address] [place] [address] VIRCreatinine [Mass/Vol]1.15 mg/dLHigh0.40-1.00St. [facility] of God HospitalComment on above:Result Comment: METHOD TRACEABLE TO IDRI STANDARDPerformed By: #### BMP #### [facility] ([facility]) [address] [place] [address] VIRGFR/1.73 sq M.predicted among non-blacks MDRD (S/P/Bld) [Vol rate/Area]54 mL/min/{1.73_m2}Low>=60ProPeterson Regional Medical CenterComment on above: Result Comment: Reported eGFR is based on the CKD-EPI 2020 equation that does not use a race coefficient.Performed By: #### BMP #### [facility] ([facility]) [address] [place] [address] VIRGlucose [Mass/Vol]83 mg/yGTezskd74-28LgzIsfsziPeterson Regional Medical CenterComment on above:Performed By: #### BMP #### [facility] ([facility]) [address] [place] [address] VIRPotassium [Moles/Vol]4.1 mmol/LNormal3.5-5.0ProPeterson Regional Medical CenterComment on above:Performed By: #### BMP #### [facility] ([facility]) [address] [place] [address] VIRSodium [Moles/Vol]140 mmol/PJhvwop128-853JxxTukpro [facility] HospitalComment on above:Performed By: #### BMP #### [facility] ([facility]) [address] [place] [address] VIRUrea nitrogen [Mass/Vol]15 mg/dLNormal5-27ProPeterson Regional Medical CenterComment on above:Performed By: #### BMP #### [facility] ([facility]) [address] [place] [address] VIRXR KNEE RT 3 VWSon 52-07-5483FK KNEE RT 3 VWSXR KNEE RT 3 [...] by Kai Finn MD on 11/29/2024 2:28 PMNormalProTexas Health Allen WITH AUTO DIFFERENTIALon 10-69-4085Kwyd form neutrophils/100 WBC (Bld)4 %NormalPhoebe Worth Medical Center PPGComment on above:Result Comment: This is an appended report. These results have been appended to a previously preliminary verified report.Performed By: #### CBCA #### [facility] ([facility]) [address] [place] [address] VIRCELLAVISION BASOPHILS ABSOLUTE COUNT (10*3/UL) BY MANUAL COUNT0.1 10*3/uLNormal0.0-0.2PParma Community General Hospital Ambulatory PPGComment on above: Result Comment: This is an appended report. These results have been appended to a previously preliminary verified report.Performed By: #### CBCA #### [facility] ([facility]) [address] [place] [address] VIRCELLAVISION BASOPHILS RELATIVE PERCENT BY MANUAL COUNT1 % NormalWayne Hospital Ambulatory PPGComment on above:Result Comment: This is an appended report. These results have been appended to a previously preliminary verified report.Performed By: #### CBCA #### [facility] ([facility]) [address] [place] [address] VIRCELLAVISION DIFFERENTIAL TYPECELLAVISION DIFFERENTIALNormal [facility] PPGComment on above:Result Comment: This is an appended report. These results have been appended to a previously preliminary verified report.Performed By: #### CBCA #### [facility] ([facility]) [address] [place] [address] VIRCELLAVISION EOSINOPHILS ABSOLUTE COUNT (10*3/UL) BY MANUAL COUNT0.2 10*3/uLNormal0.0-0.4[facility] PPGComment on above: Result Comment: This is an appended report. These results have been appended to a previously preliminary verified report.Performed By: #### CBCA #### [facility] ([facility]) [address] [place] [address] VIRCELLAVISION EOSINOPHILS PERCENT BY MANUAL COUNT2 %Normal [facility] PPGComment on above:Result Comment: This is an appended report. These results have been appended to a previously preliminary verified report.Performed By: #### CBCA #### [facility] ([facility]) [address] [place] [address] VIRCELLAVISION LYMPHOCYTES ABSOLUTE COUNT (10*3/UL) BY MANUAL COUNT1.9 10*3/uLNormal1.0-3.5PParma Community General Hospital Ambulatory PPGComment on above: Result Comment: This is an appended report. These results have been appended to a previously preliminary verified report.Performed By: #### CBCA #### [facility] ([facility]) [address] [place] [address] VIRCELLAVISION LYMPHOCYTES RELATIVE PERCENT BY MANUAL COUNT21 % [facility]ulatory PPGComment on above:Result Comment: This is an appended report. These results have been appended to a previously preliminary verified report.Performed By: #### CBCA #### [facility] ([facility]) [address] [place] [address] VIRCELLAVISION MONOCYTES ABSOLUTE COUNT (10*3/UL) IN BLOOD BY MANUAL COUNT0.2 10*3/uLNormal0.0-0.9[facility] Ambulatory PPGComment on above:Result Comment: This is an appended report. These results have been appended to a previously preliminary verified report.Performed By: #### CBCA #### [facility] ([facility]) [address] [place] [address] VIRCELLAVISION MONOCYTES RELATIVE PERCENT BY MANUAL COUNT2 % NormalWayne Hospital Ambulatory PPGComment on above:Result Comment: This is an appended report. These results have been appended to a previously preliminary verified report.Performed By: #### CBCA #### [facility] ([facility]) [address] [place] [address] VIRCELLAVISION NEUTROPHILS ABSOLUTE COUNT BY MANUAL COUNT6.8 10*3/uLHigh1.5-6.6[facility] PPGComment on above:Result Comment: This is an appended report. These results have been appended to a previously preliminary verified report.Performed By: #### CBCA #### [facility] ([facility]) [address] [place] [address] VIRCELLAVISION NEUTROPHILS RELATIVE PERCENT BY MANUAL COUNT70 % NormalWayne Hospital Ambulatory PPGComment on above:Result Comment: This is an appended report. These results have been appended to a previously preliminary verified report.Performed By: #### CBCA #### [facility] ([facility]) [address] [place] [address] VIRCELLAVISION RBC MORPHOLOGYReviewedNormalWayne Hospital Ambulatory PPGComment on above:Result Comment: This is an appended report. These results have been appended to a previously preliminary verified report. Performed By: #### CBCA #### [facility] ([facility]) [address] [place] [address] VIRErythrocyte distribution width (RBC) [Ratio]20.4 %High 11.5-15[facility]ulatory PPGComment on above:Performed By: #### CBCA #### [facility] ([facility]) [address] [place] [address] VIRHematocrit (Bld) [Volume fraction]32.9 %Ivz10-22MwbFopnplWayne Hospital Ambulatory PPGComment on above:Performed By: #### CBCA #### [facility] ([facility]) [address] [place] [address] VIRHemoglobin (Bld) [Mass/Vol]10.0 g/dLLow11.7-15.5PParma Community General [facility] Ambulatory PPGComment on above:Performed By: #### CBCA #### [facility] ([facility]) [address] [place] [address] VIRMCH (RBC) [Entitic mass]21.2 omRmn12-10EclXvrrfe Hospital Ambulatory PPGComment on above:Performed By: #### CBCA #### [facility] ([facility]) [address] [place] [address] VIRMCHC (RBC) [Mass/Vol]30.4 g/cIFpp96-81YuqZhciua Hospital Ambulatory PPGComment on above:Performed By: #### CBCA #### [facility] ([facility]) [address] [place] [address] VIRMCV (RBC) [Entitic vol]70 zXSnu39-989YzaManxtw Hospital Ambulatory PPGComment on above:Performed By: #### CBCA #### [facility] ([facility]) [address] [place] [address] VIRPlatelet mean volume (Bld) [Entitic vol]8.2 fLNormal7-12 [facility] PPGComment on above:Performed By: #### CBCA #### [facility] ([facility]) [address] [place] [address] VIRPlatelets (Bld) [#/Vol]334 10*3/mQDiufha574-364BvxOffszm Hospital Ambulatory PPGComment on above:Performed By: #### CBCA #### [facility] ([facility]) [address] [place] [address] VIRRBC COUNT4.73 X10E12/LNormal3.8-5.2PParma Community General Hospital Ambulatory PPGComment on above:Performed By: #### CBCA #### [facility] ([facility]) [address] [place] [address] VIRWBC (Bld) [#/Vol]9.1 10*3/uLNormal4-11[facility] PPGComment on above:Performed By: #### CBCA #### [facility] ([facility]) [address] [place] [address] VIRCBC auto differentialon 33-48-0881Ltax form neutrophils/100 WBC (Bld)4 %[facility] SystemComment on above:This is an appended report. These results have been appended to a previously preliminary verified report. Basophils (Bld) [#/Vol]0.1 10*3/uL0.0 - 0.2 10*3/uLProMediShelby Memorial Hospital System Comment on above:This is an appended report. These results have been appended to a previously preliminary verified report.Basophils/100 WBC (Bld)1 %[facility] HospitalComment on above:This is an appended report. These results have been appended to a previously preliminary verified report.Differential cell count method Nom (Bld)CELLAVISION DIFFERENTIALAshtabula General HospitalComschoolcraft memorial hospital on above:This is an appended report. These results have been appended to a previously preliminary verified report.Eosinophils (Bld) [#/Vol]0.2 10*3/uL0.0 - 0.4 10*3/uLAshtabula General HospitalComment on above:This is an appended report. These results have been appended to a previously preliminary verified report. Eosinophils/100 WBC (Bld)2 %[facility] HospitalComschoolcraft memorial hospital on above:This is an appended report. These results have been appended to a previously preliminary verified report.Erythrocyte distribution width (RBC) [Ratio]20.4 %High11.5 - 15 %[facility] HospitalHematocrit (Bld) [Volume fraction]32.9 %Low35 - 47 % [facility] HospitalHemoglobin (Bld) [Mass/Vol]10 g/dLLow11.7 - 15.5 g/dL [facility] HospitalInterpretation and review of laboratory resultsAbnormal [facility] HospitalLymphocytes (Bld) [#/Vol]1.9 10*3/uL1.0 - 3.5 10*3/uL [facility] HospitalComschoolcraft memorial hospital on above:This is an appended report. These results have been appended to a previously preliminary verified report.MCH (RBC) [Entitic mass]21.2 pgLow27 - [address] [facility] Medical CenterMCHC (RBC) [Mass/Vol] 30.4 g/dLLow32 - 36 g/dLAshtabula General HospitalMCV (RBC) [Entitic vol]70 fLLow80 - 100 [facility] HospitalMonocytes (Bld) [#/Vol]0.2 10*3/uL0.0 - 0.9 10*3/uLAshtabula General HospitalComschoolcraft memorial hospital on above:This is an appended report. These results have been appended to a previously preliminary verified report. Monocytes/100 WBC (Bld)2 %[facility] HospitalComschoolcraft memorial hospital on above:This is an appended report. These results have been appended to a previously preliminary verified report.Neutrophils (Bld) [#/Vol]6.8 10*3/uLHigh1.5 - 6.6 10*3/uL [facility] SystemComment on above:This is an appended report. These results have been appended to a previously preliminary verified report. Neutrophils/100 WBC (Bld)70 %[facility] HospitalComment on above:This is an appended report. These results have been appended to a previously preliminary verified report.Platelet mean volume (Bld) [Entitic vol]8.2 fL7 - 12 [facility] HospitalPlatelets (Bld) [#/Vol]334 10*3/uLOhioHealth Grady Memorial Hospital SystemRBC (Bld) [#/Vol]4.73 10*6/uLAshtabula General HospitalRBC (Bld) [#/Vol]ReviewedAshtabula General HospitalComment on above:This is an appended report. These results have been appended to a previously preliminary verified report.Variant lymphocytes/100 WBC (Bld)21 %[facility] HospitalComment on above:This is an appended report. These results have been appended to a previously preliminary verified report.WBC LM Ql (Sput)9.1PVA hospitalCOMPREHENSIVE METABOLIC PANELon 92-22-1138Gzyxyjw [Mass/Vol]4.4 g/dLNormal 3.2-5.3PParma Community General Hospital Ambulatory PPGComment on above:Performed By: #### CMP #### [facility] ([facility]) [address] [place] [address] VIRALP [Catalytic activity/Vol]100 U/ZFcjjbe28-591MjhKdzjan Hospital Ambulatory PPGComment on above:Performed By: #### CMP #### [facility] ([facility]) [address] [place] [address] VIRALT [Catalytic activity/Vol]33 U/LHigh<=31PParma Community General Hospital Ambulatory PPGComment on above:Performed By: #### CMP #### [facility] ([facility]) [address] [place] [address] VIRAnion gap [Moles/Vol]7 mmol/LNormal5-15[facility] PPGComment on above:Performed By: #### CMP #### [facility] ([facility]) [address] [place] [address] VIRAST [Catalytic activity/Vol]22 U/LNormal<=41ProSouthwest General Health [facility] Ambulatory PPGComment on above:Performed By: #### CMP #### [facility] ([facility]) [address] [place] [address] VIRBilirubin [Mass/Vol]0.3 mg/dLNormal0.3-1.2PParma Community General Hospital Ambulatory PPGComment on above:Performed By: #### CMP #### [facility] ([facility]) [address] [place] [address] VIRCalcium [Mass/Vol]9.3 mg/dLNormal8.5-10.5PParma Community General Hospital Ambulatory PPGComment on above:Performed By: #### CMP #### [facility] ([facility]) [address] [place] [address] VIRChloride [Moles/Vol]102 mmol/FLrdono50-845SbfIzxcjt Hospital Ambulatory PPGComment on above:Performed By: #### CMP #### [facility] ([facility]) [address] [place] [address] VIRCO2 [Moles/Vol]34 mmol/TQxpr59-18DkhPpvxnv Hospital Ambulatory PPGComment on above:Performed By: #### CMP #### [facility] ([facility]) [address] [place] [address] VIRCreatinine [Mass/Vol]1.27 mg/dLHigh0.40-1.00[facility] PPGComment on above:Result Comment: METHOD TRACEABLE TO IDMS STANDARDPerformed By: #### CMP #### [facility] ([facility]) [address] [place] [address] VIRGFR/1.73 sq M.predicted among non-blacks MDRD (S/P/Bld) [Vol rate/Area]48 mL/min/{1.73_m2}Low>=60[facility] PPGComment on above:Result Comment: Reported eGFR is based on the CKD-EPI 2020 equation that does not use a race coefficient.Performed By: #### CMP #### [facility] ([facility]) [address] [place] [address] VIRGlucose [Mass/Vol]114 mg/bJXabj25-97FkeCabdvg Hospital Ambulatory PPGComment on above:Performed By: #### CMP #### [facility] ([facility]) [address] [place] [address] VIRPotassium [Moles/Vol]4.4 mmol/LNormal3.5-5.0[facility] PPGComment on above:Performed By: #### CMP #### [facility] ([facility]) [address] [place] [address] VIRProtein [Mass/Vol]7.6 g/dLNormal6.0-8.0[facility] PPGComment on above:Performed By: #### CMP #### [facility] ([facility]) [address] [place] [address] VIRSodium [Moles/Vol]143 mmol/JMnxxso144-601HdxGxstzu Hospital Ambulatory PPGComment on above:Performed By: #### CMP #### [facility] ([facility]) [address] [place] [address] VIRUrea nitrogen [Mass/Vol]19 mg/dLNormal5-27[facility] PPGComment on above:Performed By: #### CMP #### [facility] ([facility]) [address] [place] [address] VIRComprehensive metabolic panelon 69-54-9974Csenbaz [Mass/Vol] 4.4 g/dL3.2 - 5.3 g/dLOhioHealth Grady Memorial Hospital SystemALP [Catalytic activity/Vol]100 U/L 39 - 130 U/LProMedUniversity Hospitals Portage Medical Center SystemALT No additional P-5'-P [Catalytic activity/Vol]33 U/LHighNINF - 31 U/[facility] SystemAnion gap [Moles/Vol] 7 mmol/L5 - 15 mmol/[facility] SystemAST [Catalytic activity/Vol]22 U/L NINF - 41 U/[facility] SystemBilirubin [Mass/Vol]0.3 mg/dL0.3 - 1.2 mg/dL [facility] SystemCalcium [Mass/Vol]9.3 mg/dL8.5 - 10.5 mg/dLAshtabula General HospitalChloride [Moles/Vol]102 mmol/L98 - 109 mmol/[facility] SystemCO2 [Moles/Vol]34 mmol/LHigh22 - 32 mmol/[facility] Creatinine [Mass/Vol]1.27 mg/dLHigh0.40 - 1.00 mg/dLAshtabula General Hospital Comment on above:METHOD TRACEABLE TO IDMS STANDARDEGFR Non-Race Azcybpcye98DlqWythe County Community HospitalComment on above:Reported eGFR is based on the CKD-EPI 2020 equation that does not use a race coefficient. Glucose [Mass/Vol]114 mg/lPCdmi02 - 99 mg/dLAshtabula General Hospital Interpretation and review of laboratory resultsAbnoDuke University Hospital Potassium [Moles/Vol]4.4 mmol/L3.5 - 5.0 mmol/[facility] SystemProtein [Mass/Vol]7.6 g/dL6.0 - 8.0 g/dLDorothea Dix Hospitalodium [Moles/Vol]143 mmol/L134 - 146 mmol/[facility] SystemUrea nitrogen [Mass/Vol]19 mg/dL5 - 27 mg/dLChildren's Hospital of PhiladelphiaHEMOGLOBIN A1Con 33-79-0091Qyvtbjs [Mass/Vol]134 mg/dLStockton State Hospital Ambulatory PPG Comment on above:Performed By: #### HA1C #### [facility] ([facility]) [address] [place] [address] EVNXfR5b (Bld) [Mass fraction]6.3 %High4.4-5.6[facility] Ambulatory PPGComment on above:Result Comment: ADA Guidelines Result HgbA1c Normal : less than 5.7 % Prediabetes : 5.7 % to 6.4 % Diabetes : > 6.4 % Use with caution in patients with abnormal hemoglobin variants as the half-life of red blood cells and in vivo glycation rates are affected.Performed By: #### HA1C #### [facility] ([facility]) [address] [place] [address] VIRCBC AND AUTO DIFFon 25-17-0998EJVCXHWH BASOPHIL0.1 X10E9/L Normal0.0-0.2[facility] Parma Medical CenterComment on above:Performed By: #### KAIDEN 2131-12, BMP, CBCA #### [facility] ([id number]) [address] [address] [place], [place] [address]OSXHPSTT NEUTROPHIL7.1 X10E9/LHigh1.5-6.6ProOhio State University Wexner Medical CenterComment on above:Performed By: #### KAIDEN 2131-12, BMP, CBCA #### [facility] ([id number]) [address] [address] [place], [place] [address]Kmqpxkxma/100 WBC (Bld)0.6 %NormalPike Community Hospital Comment on above:Performed By: #### KAIDEN 2131-12, BMP, CBCA #### [facility] ([id number]) [address] [place], [place] [address]Xnjfwrpptyl (Bld) [#/Vol]0.1 10*3/uLNormal0.0-0.4ProOhio State University Wexner Medical CenterComment on above:Performed By: #### KAIDEN 2131-12, BMP, CBCA #### [facility] ([id number]) [address] [address] [place], [place] [address]Cwvcsphudxj/100 WBC (Bld)1.0 %NormalPike Community Hospital Comment on above:Performed By: #### KAIDEN, 2131-12, BMP, CBCA #### [facility] ([id number]) [address] [place], [place] [address]Uaqflcdkuid distribution width (RBC) [Ratio]20.7 %High11.5-15.0 [facility] Cameron HospitalComment on above:Performed By: #### KAIDEN, 2131-12, BMP, CBCA #### [facility] ([id number]) [address] [place], [place] [address]Eqrlnuzrya (Bld) [Volume fraction]37.2 %Fuengp50-80HfyIagwqqOhio State University Wexner Medical CenterComment on above:Performed By: #### KAIDEN, 2131-12, BMP, CBCA #### [facility] ([id number]) [address], [address] [place], [place] [address]Mjzgylviky (Bld) [Mass/Vol]11.7 g/tNFlewel24.7-15.5ProMedKettering Health Dayton HospitalComment on above:Performed By: #### KAIDEN 2131-12, BMP, CBCA #### [facility] ([id number]) [address] [place], [place] [address]Hlhcdvcjrll (Bld) [#/Vol]1.6 10*3/uLNormal1.0-3.5ProMedKettering Health Dayton HospitalComment on above:Performed By: #### KAIDEN, 2131-12, BMP, CBCA #### [facility] ([id number]) [address] [place], [place] [address]Pgwttnynmvy/100 WBC (Bld)17.6 %NormalPike Community Hospital Comment on above:Performed By: #### THYDasha, 2131-12, BMP, CBCA #### [facility] ([id number]) [address] [place], [place] [address]BNZ (RBC) [Entitic mass]23.0 erZfg72-13PknBnmnfkPike Community Hospital Comment on above:Performed By: #### THYDasha, 2131-12, BMP, CBCA #### [facility] ([id number]) [address] [place], [place] [address]VZYX (RBC) [Mass/Vol]31.4 g/iNGuz88-24LvaSjrqxkPike Community Hospital Comment on above:Performed By: #### THYDasha, 2131-12, BMP, CBCA #### [facility] ([id number]) [address] [place], [place] [address]WWI (RBC) [Entitic vol]73 tUJxd00-887SlnErieqfPike Community Hospital Comment on above:Performed By: #### KAIDEN, 2131-12, BMP, CBCA #### [facility] ([id number]) [address] [place], [place] [address]Fmlxngzon (Bld) [#/Vol]0.4 10*3/uLNormal0-0.9Pike Community HospitalComment on above:Performed By: #### THYDasha, 2131-12, BMP, CBCA #### [facility] ([id number]) [address] [place], [place] [address]Mvlgawwdq/100 WBC (Bld)4.2 %[facility] Comment on above:Performed By: #### THYR, 2131-12, BMP, CBCA #### [facility] ([id number]) [address] [place], [place] [address]Rriuahdhnvq/100 WBC (Bld)76.6 %[facility] Comment on above:Performed By: #### THYR, 2131-12, BMP, CBCA #### [facility] ([id number]) [address] [place], [place] [address]Zcfwapqh mean volume (Bld) [Entitic vol]8.2 fLNormal7-12 [facility] Cameron HospitalComment on above:Performed By: #### KAIDEN 2131-12, BMP, CBCA #### [facility] ([id number]) [address] [place], [place] [address]Tzlkphpmd (Bld) [#/Vol]396 10*3/uYMafuuo833-649RfmLwwmsq Cameron HospitalComment on above:Performed By: #### KAIDEN 2131-12, BMP, CBCA #### [facility] ([id number]) [address] [place], [place] [address]GEE COUNT5.09 X10E12/LNormal3.80-5.20ProUniversity Hospitals Cleveland Medical Centerca [facility] Comment on above:Performed By: #### KAIDEN 2131-12, KEKE, CBCA #### [facility] ([id number]) [address] [place], [place] [address]DGZ (Bld) [#/Vol]9.3 10*3/uLNormal4.0-11.0ProUniversity Hospitals Cleveland Medical Centerca Cameron HospitalComment on above:Performed By: #### KAIDEN 2131-12, BMP, CBCA #### [facility] ([id number]) [address] [place], [place] [address]AITZGYRECCDNO METABOLIC PANELon 12-79-6880Opygmli [Mass/Vol]4.1 g/dLNormal3.2-5.3ProMedica Cameron HospitalComment on above:Performed By: #### KAIDEN 2131-12, BMP, CBCA #### [facility] ([id number]) [address] [place], [place] [address]BDW [Catalytic activity/Vol]106 U/PSboguo41-591GwtValyai Miller HospitalComment on above:Performed By: #### KAIDEN 2131-12, BMP, CBCA #### [facility] ([id number]) [address] [place], [place] [address]EFJ [Catalytic activity/Vol]30 U/LNormal0-31ProMedica Miller HospitalComment on above:Performed By: #### KAIDEN 2131-12, BMP, CBCA #### [facility] ([id number]) [address] [place], [place] [address]Yslxa gap [Moles/Vol]10 mmol/LNormal5-15[facility] Miller HospitalComment on above:Performed By: #### KAIDEN 2131-12, BMP, CBCA #### [facility] ([id number]) [address] [place], [place] [address]LNB [Catalytic activity/Vol]30 U/LNormal0-41ProMed[facility] Miller HospitalComment on above:Performed By: #### KAIDEN 2131-12, BMP, CBCA #### [facility] ([id number]) [address] [place], [place] [address]Pckwncmba [Mass/Vol]0.3 mg/dLNormal0.3-1.2ProMedica Miller HospitalComment on above:Performed By: #### KAIDEN 2131-12, BMP, CBCA #### [facility] ([id number]) [address] [place], [place] [address]Itywech [Mass/Vol]9.6 mg/dLNormal8.5-10.5ProMedica Miller HospitalComment on above:Performed By: #### KAIDEN 2131-12, BMP, CBCA #### [facility] ([id number]) [address] [place], [place] [address]Wrznnera [Moles/Vol]105 mmol/RAmyhne18-648PnwLhjalu Miller HospitalComment on above:Performed By: #### KAIDEN 2131-12, BMP, CBCA #### [facility] ([id number]) [address] [place], [place] [address]YU1 [Moles/Vol]25 mmol/ZZpqwti28-49XvrRremfiSelect Medical Specialty Hospital [facility] Comment on above:Performed By: #### KAIDEN 2131-12, ANNA DAVIES #### [facility] ([id number]) [address] [place], [place] [address]Vwbomqvgbl [Mass/Vol]1.14 mg/dLHigh0.40-1.00ProOhio State University Wexner Medical CenterComment on above:Result Comment: METHOD TRACEABLE TO IDMS STANDARD Performed By: #### KAIDEN 2131-12, ANNA DAVIES #### [facility] ([id number]) [address] [place], [place] [address]YQS/1.73 sq M.predicted among non-blacks MDRD (S/P/Bld) [Vol rate/Area]54 mL/min/{1.73_m2}Low>59ProOhio State University Wexner Medical CenterComment on above: Result Comment: Reported eGFR is based on the CKD-EPI 2020 equation that does not use a race coefficient.Performed By: #### KAIDEN 2131-12, ANNA DAVIES #### [facility] ([id number]) [address] [address] [place], [place] [address]Oiryuqm [Mass/Vol]144 mg/eWFfru58-46PsbEkdeevPike Community Hospital Comment on above:Performed By: #### KAIDEN 2131-12, ANNA DAVIES #### [facility] ([id number]) [address] [place], [place] [address]Qlmcgwbwe [Moles/Vol]3.9 mmol/LNormal3.5-5.0ProOhio State University Wexner Medical CenterComment on above:Performed By: #### KAIDEN 2131-12, KEKE, CBCMindi #### [facility] ([id number]) [address] [place], [place] [address]Jezuzrw [Mass/Vol]7.5 g/dLNormal6.0-8.0[facility] Comment on above:Performed By: #### KAIDEN 2131-12KEKE CBCMindi #### [facility] ([id number]) [address] [facility] [address] [place], [place] [address]Ikoend [Moles/Vol]140 mmol/GWkpcrj728-229JhqTgldhi [facility] HospitalComment on above:Performed By: #### KAIDEN 2131-12, KEKE, CBCA #### [facility] ([id number]) [address] [facility] [address] [place], [place] [address]Pjio nitrogen [Mass/Vol]11 mg/dLNormal5-27ProOhio State University Wexner Medical CenterComment on above:Performed By: #### KAIDEN 2131-12, KEKE, CBCA #### [facility] ([id number]) [address] [facility] [address] [place], [place] [address]YEN A1C (GLYCO-HGB)on 55-36-9230Occsikk [Mass/Vol]140 mg/dL NormalProOhio State University Wexner Medical CenterComment on above:Performed By: #### KAIDEN 2131-12, KEKE, CBCA #### [facility] ([id number]) [address], [facility] [address] [place], [place] [address]KcH7e (Bld) [Mass fraction]6.5 %High4.4-5.6ProOhio State University Wexner Medical CenterComment on above:Result Comment: NOTE ADA Guidelines Result HgbA1c Normal : less than 5.7 % Prediabetes : 5.7 % to 6.4 % Diabetes : > 6.4 % Use with caution in patients with abnormal hemoglobin variants as the half-life of red blood cells and in vivo glycation rates are affected.Performed By: #### KAIDEN 2131-12, KEKE, CBCA #### [facility] ([id number]) [address], [address] [place] [id number] 1996 panelon [id number] [Mass/Vol]188 mg/dL [id number] Toledo HospitalComment on above:Performed By: ###Fabi RICHEY 2131-12, BMP, CBCA #### [facility] ([id number]) [address], [address] [place], [place] [address]Ihdnzxxvvno in HDL [Mass/Vol]33 mg/dLLow>39ProMedica Cameron HospitalComment on above:Result Comment: HDL <40 mg/dL - High Risk HDL > or = 40mg/dL- Desirable HDL >60 mg/dL - Negative Risk Performed By: ###Fabi RICHEY, 2131-12, BMP, CBCA #### [facility] ([id number]) [address], [address] [place], [place] [address]Cxsdfpzwulz in LDL [Mass/Vol]118 mg/dLNormal<130ProJoint Township District Memorial Hospital HospitalComment on above:Result Comment: LDL <100 mg/dL - Desirable LDL >160 mg/dL - High Risk Performed By: #### KAIDEN, 2131-12, BMP, CBCA #### [facility] ([id number]) [address], [address] [place], [place] [address]Tmydhkrwggv in VLDL [Mass/Vol]37 mg/dLHigh0-30ProJoint Township District Memorial Hospital HospitalComment on above:Performed By: ###Fabi RICHEY, 2131-12, BMP, CBCA #### [facility] ([id number]) [address], [address] [place], [place] [address]BGGHFDIDDGU:HDL5.7High1.0-5.0ProUniversity Hospitals Cleveland Medical Centerca Cameron HospitalComment on above:Performed By: #### KAIDEN 2131-12, BMP, CBCA #### [facility] ([id number]) [address], [address] [place], [place] [address]Prdouyhfgwjk [Mass/Vol]185 mg/hTBerb43-185EltGthuwm Cameron HospitalComment on above:Performed By: #### KAIDEN, 2131-12, BMP, CBCA #### [facility] ([id number]) [address], [address] [place], [place] [address]ZJPBJPS B12on 31-15-4871Jcukidits (Vitamin B12) [Mass/Vol]1244 pg/eHPjnu993-671EfoUcubrs [place] HospitalComment on above:Performed By: #### KAIDEN 2131-12, BMP, CBCA #### [facility] ([id number]) [address], [address] [place], [place] [address]IWJ AND AUTO DIFFon 97-36-2821KBCTMTQN BASOPHIL0.1 X10E9/LNormal 0.0-0.2ProMedKettering Health Dayton HospitalComment on above:Performed By: #### XENIA, 257-8, HAMagaly, 2088-04, CBCA #### [facility] ([id number]) [address], [address] [place], [place] [address]YYWHBBMN NEUTROPHIL8.1 X10E9/LHigh1.5-6.6ProUniversity Hospitals Cleveland Medical Centerca Cameron HospitalComment on above:Performed By: #### XENIA, 257-8, HA1C, 2088-04, CBCA #### [facility] ([id number]) [address], [address] [place], [place] [address]Qkjlgmozl/100 WBC (Bld)0.7 %NormalProJoint Township District Memorial Hospital Hospital Comment on above:Performed By: #### XENIA, 2571-8, HA1C, 2088-04, CBCA #### [facility] ([id number]) [address], [address] [place], [place] [address]Zdmcskacfou (Bld) [#/Vol]0.2 10*3/uLNormal0.0-0.4ProMedica Cameron HospitalComment on above:Performed By: #### XENIA, 2570-11, , 2088-04, CBCA #### [facility] ([id number]) [address], [address] [place], [place] [address]Rdugtedcilz/100 WBC (Bld)1.4 %NormalProUniversity Hospitals Cleveland Medical Centerca [facility] Comment on above:Performed By: #### XENIA, 2570-11, , 2088-04, CBCA #### [facility] ([id number]) [address], [address] [place], [place] [address]Uslryefcdne distribution width (RBC) [Ratio]19.2 %High11.5-15.0 ProMedica Cameron HospitalComment on above:Performed By: #### XENIA, 2570-11, , 2088-04, CBCA #### [facility] ([id number]) [address], [address] [place], [place] [address]Ooekhhbydm (Bld) [Volume fraction]31.0 %Zrj57-13OuyEghtrj Cameron HospitalComment on above:Performed By: #### XENIA, 2570-11, , 2088-04, CBCA #### [facility] ([id number]) [address], [address] [place], [place] [address]Wnlzwknhha (Bld) [Mass/Vol]9.2 g/dLLow11.7-15.5ProMedica Cameron HospitalComment on above:Performed By: #### XENIA, 2570-11, , 2088-04, CBCA #### [facility] ([id number]) [address], [address] [place], [place] [address]Jqlgoekvzhj (Bld) [#/Vol]2.2 10*3/uLNormal1.0-3.5PSelect Medical Specialty Hospital - Cleveland-FairhillComment on above:Performed By: #### XENIA, 8, HA1C, 2088-04, CBCA #### [facility] ([id number]) [address], [facility] [address] [place], [place] [address]Vwetbhvdsgw/100 WBC (Bld)19.8 %NormalPike Community Hospital Comment on above:Performed By: #### XENIA, 8, HAMagaly, 2088-04, CBCA #### [facility] ([id number]) [address], [address] [address]IYF (RBC) [Entitic mass]21.8 nlAts18-51EeyTptesmPike Community Hospital Comment on above:Performed By: #### XENIA, 8, HA1C, 2088-04, CBCA #### [facility] ([id number]) [address], [address] [address]QASS (RBC) [Mass/Vol]29.8 g/sNGwk32-41QsmZebgvlPike Community Hospital Comment on above:Performed By: #### XENIA, 8, HA1C, 2088-04, CBCA #### [facility] ([id number]) [address] [address]MFQ (RBC) [Entitic vol]73 tHMzn08-951DdeOcmhcjPike Community Hospital Comment on above:Performed By: #### XENIA, 8, HA1C, 2088-04, CBCA #### [facility] ([id number]) [address], [address] [address]Twvynqwho (Bld) [#/Vol]0.4 10*3/uLNormal0-0.9Pike Community HospitalComment on above:Performed By: #### XENIA, 257-8, HA1C, 2088-04, CBCA #### [facility] ([id number]) [address], [address] [place], [place] [address]Pbwjdmgsc/100 WBC (Bld)4.0 %NormalPike Community Hospital Comment on above:Performed By: #### CMP, 2570-8, HA1C, 2088-04, CBCA #### [facility] ([id number]) [address], [address] [place], [place] [address]Hhzlsbbvucu/100 WBC (Bld)74.1 %[facility] Comment on above:Performed By: #### CMP, 2570-8, HA, 2088-04, CBCA #### [facility] ([id number]) [address], [address] [place], [place] [address]Womgfudn mean volume (Bld) [Entitic vol]8.0 fLNormal7-12 [facility] HospitalComment on above:Performed By: #### CMP, 8, HA1C, 2088-04, CBCA #### [facility] ([id number]) [address], [address] [place], [place] [address]Tibmgiyvk (Bld) [#/Vol]412 10*3/fDZjnhls265-337MpzRtpwtj [place] HospitalComment on above:Performed By: #### CMP, 2570-8, HA, 2088-04, CBCA #### [facility] ([id number]) [address], [address] [place], [place] [address]XNS COUNT4.24 X10E12/LNormal3.80-5.20[facility] Comment on above:Performed By: #### CMP, 2570-8, HA1C, 2088-04, CBCA #### [facility] ([id number]) [address], [address] [place], [place] [address]MMF (Bld) [#/Vol]11.0 10*3/uLNormal4.0-11.0P[facility] Community HospitalComment on above:Performed By: #### CMP, 2571-8, HA1C, 2089-1, CBCA #### [facility] ([id number]) [address] [place], [place] [address]NWK auto differentialon 87-16-1407Kzigkkrhc (Bld) [#/Vol]0.1 10*3/uLOhioHealth Grady Memorial Hospital SystemBasophils/100 WBC (Bld)0.7 %[facility] HospitalEosinophils (Bld) [#/Vol]0.2 10*3/uLAshtabula General HospitalEosinophils/100 WBC (Bld)1.4 %[facility] General HospitalErythrocyte distribution width (RBC) [Ratio]19.2 %High11.5 - 15.0 %[facility] HospitalHematocrit (Bld) [Volume fraction]31 %Low35 - 47 %[facility] HospitalHemoglobin (Bld) [Mass/Vol]9.2 g/dLLow11.7 - 15.5 g/dLAshtabula General HospitalInterpretation and review of laboratory resultsAbnormalAshtabula General HospitalLymphocytes (Bld) [#/Vol]2.2 10*3/uLAshtabula General HospitalLymphocytes/100 WBC (Bld)19.8 %[facility] General HospitalMCH (RBC) [Entitic mass]21.8 pgLow27 - [address] Elizabeth Youngstown HospitalMCHC (RBC) [Mass/Vol]29.8 g/dLLow32 - 36 g/dLAshtabula General HospitalMCV (RBC) [Entitic vol]73 fLLow80 - 100 [facility] HospitalMonocytes (Bld) [#/Vol] 0.4 10*3/uLAshtabula General HospitalMonocytes/100 WBC (Bld)4 %[facility] General HospitalNeutrophils (Bld) [#/Vol]8.1 10*3/uLValley Medical [facility] System Neutrophils/100 WBC (Bld)74.1 %[facility]ica Health SystemPlatelet mean volume (Bld) [Entitic vol]8 fL7 - 12 fLPDelaware County Hospital SystemPlatelets (Bld) [#/Vol]412 10*3/uLOhioHealth Grady Memorial Hospital SystemRBC (Bld) [#/Vol]4.24 10*6/[facility] SystemWBC corrected for nucl RBC Auto (Bld) [#/Vol]11[facility] ProMMercy Health Willard HospitalCOMPREHENSIVE METABOLIC PANELon 04-75-7172Idnubft [Mass/Vol]4.0 g/dLNormal3.2-5.3PKettering Memorial Hospital HospitalComment on above: Performed By: #### KAIDEN, 2131-12, BMP, CBCA #### [facility] ([id number]) [address], [address] [place], [place] [address]ZGQ [Catalytic activity/Vol]94 U/NXnegmi57-523HgxBdsnpz [place] HospitalComment on above:Performed By: #### KAIDEN, 2131-12, BMP, CBCA #### [facility] ([id number]) [address], [address] [place], [place] [address]BMA [Catalytic activity/Vol]13 U/LNormal0-31PKettering Memorial Hospital HospitalComment on above:Performed By: #### THYR, 2131-12, BMP, CBCA #### [facility] ([id number]) [address], [address] [place], [place] [address]Brrrl gap [Moles/Vol]6 mmol/LNormal5-15ProJoint Township District Memorial Hospital Hospital Comment on above:Performed By: #### THYR, 2131-12, BMP, CBCA #### [facility] ([id number]) [address], [address] [place], [place] [address]PLM [Catalytic activity/Vol]12 U/LNormal0-41ProJoint Township District Memorial Hospital HospitalComment on above:Performed By: #### THYR, 2131-12, BMP, CBCA #### [facility] ([id number]) [address], [address] [place], [place] [address]Dgykufidw [Mass/Vol]0.3 mg/dLNormal0.3-1.2PKettering Memorial Hospital HospitalComment on above:Performed By: #### KAIDEN 2131-12, BMP, CBCA #### [facility] ([id number]) [address], [address] [place], [place] [address]Qtodkpn [Mass/Vol]9.0 mg/dLNormal8.5-10.5PKettering Memorial Hospital HospitalComment on above:Performed By: #### KAIDEN 2131-12, KEKE, CBCA #### [facility] ([id number]) [address], [address] [place], [place] [address]Lhiqtcbb [Moles/Vol]100 mmol/KEaxfdr45-949LaoLtxyim [place] HospitalComment on above:Performed By: #### KAIDEN 2131-12, KEKE, CBCA #### [facility] ([id number]) [address], [address] [place], [place] [address]YY3 [Moles/Vol]32 mmol/RBblrnu12-85ApbYddeup [facility] Comment on above:Performed By: #### KAIDEN 2131-12, KEKE, CBCA #### [facility] ([id number]) [address], [address] [place], [place] [address]Upaibeirpy [Mass/Vol]1.26 mg/dLHigh0.40-1.00ProJoint Township District Memorial Hospital HospitalComment on above:Result Comment: METHOD TRACEABLE TO IDMS STANDARD Performed By: #### KAIDEN 2131-12, KEKE, CBCA #### [facility] ([id number]) [address], [address] [place], [place] [address]DPS/1.73 sq M.predicted among non-blacks MDRD (S/P/Bld) [Vol rate/Area]49 mL/min/{1.73_m2}Low>59ProUniversity Hospitals Cleveland Medical Centerca Miller HospitalComment on above: Result Comment: Reported eGFR is based on the CKD-EPI 2020 equation that does not use a race coefficient.Performed By: #### KAIDEN 2131-12KEKE CBCMindi #### [facility] ([id number]) [address], [address] [place], [place] [address]Qmplxtw [Mass/Vol]120 mg/tNEkwk38-03WitWlrkqsOhio State University [facility] Center Comment on above:Performed By: #### KAIDEN 2131-12, KEKE, CBCA #### [facility] ([id number]) [address], [address] [place], [place] [address]Ytrowwfhc [Moles/Vol]3.6 mmol/LNormal3.5-5.0ProOhio State University Wexner Medical CenterComment on above:Performed By: #### KAIDEN 2131-12, KEKE, CBCA #### [facility] ([id number]) [address], [address] [place], [place] [address]Jtuxene [Mass/Vol]7.3 g/dLNormal6.0-8.0[facility] Comment on above:Performed By: #### KAIDEN 2131-12, KEKE, CBCA #### [facility] ([id number]) [address], [address] [place], [place] [address]Yuavyr [Moles/Vol]138 mmol/BUrvytz178-368EwbJihhvq [place] HospitalComment on above:Performed By: #### KAIDEN 2131-12, BMP, CBCA #### [facility] ([id number]) [address], [address] [place], [place] [address]Hslr nitrogen [Mass/Vol]21 mg/dLNormal5-27ProOhio State University Wexner Medical CenterComment on above:Performed By: #### KAIDEN 2131-12, BMP, CBCA #### [facility] ([id number]) [address], [address] [place], [place] [address]Recnclkhkmfal metabolic panelon 84-36-0300Vuqkqwm [Mass/Vol]4 g/dL3.2 - 5.3 g/dLOhioHealth Grady Memorial Hospital SystemALP [Catalytic activity/Vol]94 U/L39 - 130 U/[facility] SystemALT No additional P-5'-P [Catalytic activity/Vol] 13 U/L0 - 31 U/[facility] SystemAnion gap [Moles/Vol]6 mmol/L5 - 15 mmol/[facility] Health SystemAST [Catalytic activity/Vol]12 U/L0 - 41 U/L [facility] HospitalBilirubin [Mass/Vol]0.3 mg/dL0.3 - 1.2 mg/dLAshtabula General HospitalCalcium [Mass/Vol]9 mg/dL8.5 - 10.5 mg/dLAshtabula General Hospital Chloride [Moles/Vol]100 mmol/L98 - 109 mmol/[facility] SystemCO2 [Moles/Vol]32 mmol/L22 - 32 mmol/[facility] HealthcareCreatinine [Mass/Vol] 1.26 mg/dLHigh0.40 - 1.00 mg/dLAshtabula General HospitalComment on above:METHOD TRACEABLE TO [facility] STANDARDeGFR (CKD-EPI)non-race zqguynuvl95Hdl[address] [place], [place] [address]Comment on above: Reported eGFR is based on the CKD-EPI 2020 equation that does not use a race coefficient. Glucose [Mass/Vol]120 mg/jUBsjm81 - 99 mg/dLAshtabula General Hospital Interpretation and review of laboratory resultsAbnormalAshtabula General Hospital Potassium [Moles/Vol]3.6 mmol/L3.5 - 5.0 mmol/[facility] SystemProtein [Mass/Vol]7.3 g/dL6.0 - 8.0 g/dLDorothea Dix Hospitalodium [Moles/Vol]138 mmol/L134 - 146 mmol/UK HealthcareUrea nitrogen [Mass/Vol]21 mg/dL5 - 27 mg/dLChildren's Hospital of PhiladelphiaDIRECT LDLon 03-07-2024 Cholesterol in LDL [Mass/Vol]161 mg/dLHigh<130Pike Community HospitalComment on above:Result Comment: LDL <100 mg/dL - Desirable LDL 130-159 mg/dL - Borderline High Risk LDL >160 mg/dL - High Risk Performed By: #### KAIDEN, 2131-12, ANNA DAVIES #### [facility] ([id number]) [address], [address] [place], [place] [address]NOV A1C (GLYCO-HGB)on 26-44-6553Nihqfkw [Mass/Vol]123 mg/dL NormalProOhio State University Wexner Medical CenterComment on above:Performed By: #### KAIDEN 2131-12, ANNA DAVIES #### [facility] ([id number]) [address] [place], [place] [address]YwD7n (Bld) [Mass fraction]5.9 %High4.4-5.6P[facility] Community HospitalComment on above:Result Comment: NOTE ADA Guidelines Result HgbA1c Normal : less than 5.7 % Prediabetes : 5.7 % to 6.4 % Diabetes : > 6.4 % Use with caution in patients with abnormal hemoglobin variants as the half-life of red blood cells and in vivo glycation rates are affected.Performed By: #### KAIDEN, 2131-12, KEKE, ANNA #### [facility] ([id number]) [address], [address] [place], [place] [address]Rrhuurzjlu A1con 96-58-0019Gtdjqvg glucose Estimated from glycated hemoglobin (Bld) [Mass/Vol]123 mg/dLAshtabula General HospitalHbA1c (Bld) [Mass fraction]5.9 %High4.4 - 5.6 %[facility] Hospital SystemComment on above:NOTE ADA Guidelines Result HgbA1c Normal : less than 5.7 % Prediabetes : 5.7 % to 6.4 % Diabetes : > 6.4 % Use with caution in patients with abnormal hemoglobin variants as the half-life of red blood cells and in vivo glycation rates are affected. Interpretation and review of laboratory resultsAbnoUpland Hills HealthMICROALBUMIN - ALBUMIN:CREATININE URINE RATIOon 96-62-3343FHG/CREAT RATIONOT CALCULATEDNormal0.0-30.0[facility] Comment on above:Result Comment: Result for Albumin/Creatinine Ratio cannot be reliably calculated because urine albumin and or urine creatinine is below the detection limit of the assay.Performed By: #### KAIDEN, 2131-12, BMP, CBCA #### [facility] ([id number]) [address], [address] [address]Kyknqtn DL <= 20 mg/L (U) [Mass/Vol]mg/dLNormal0.0-1.9[facility] HospitalComment on above:Performed By: #### THYDasha, 2131-12, BMP, CBCA #### [facility] ([id number]) [address], [address] [place], [place] [address]GQRYR CREAT46.22 mg/dLNoSelect Medical Specialty Hospital - Cleveland-FairhillComment on above:Performed By: #### THYDasha, 2131-12, BMP, CBCA #### [facility] ([id number]) [address], [address] [address]Kbsncbjdvxzk - Albumin: Creatinine Urine Ratioon 03-07-2024 Albumin DL <= 20 mg/L (U) [Mass/Vol]mg/dL0.0 - 1.9 mg/dLAshtabula General Hospital Albumin/Creatinine DL <= 1.0 mg/L (U) [Ratio]NOT CALCULATEDAshtabula General HospitalComment on above: Result for Albumin/Creatinine Ratio cannot be reliably calculated because urine albumin and or urine creatinine is below the detection limit of the assay. Creatinine (U) [Mass/Vol]46.22 mg/dLChildren's Hospital of PhiladelphiaTRIGLYCERIDEon 47-71-2832Hfifmlkmcyoq [Mass/Vol]113 mg/kFHqdfcd79-597 [facility] Cameron HospitalComment on above:Performed By: #### THYR, 2131-12, ANNA DAVIES #### [facility] ([id number]) [address], [address] [place], [place] [address]Fi Panel Informationon 97-54-4496XzwwqEusebia Huertas DO 01/26/2024 3:45 PM L Inj/Asp: L subacromial bursa on 01/26/2024 1:50 PM Indications: pain Details: 21 G needle, posterior approach Medications: 40 mg methylPREDNISolone acetate 40 MG/ML Outcome: tolerated well, no immediate complications Procedure, treatment alternatives, risks and benefits explained, specific risks discussed. Consent was given by the patient. [facility] CenterXR Shoulder - left 2 Viewson 70-29-7524Ziraodu Result: January 26, 2024 x-rays AP axillary and Y scapula of the left shoulder demonstrate a type 2 acromion. The glenohumeral joint and acromioclavicular joints are intact. There are no fractures identified. The humeral head is centered in the glenoid. Impression: Type 2 acromion Cipriano Huertas D.O.[facility] Medical CenterRadiology Study observation (narrative)[facility] HospitalBASI METABOLIC PANLon 43-43-7081Rhwfb gap [Moles/Vol] 9 mmol/LNormal5-15ProMed[facility] Cameron HospitalComment on above:Performed By: #### BMP #### [facility] ([id number]) [address], [address] [place], [place] [address]Zwiijuu [Mass/Vol]9.1 mg/dLNormal8.5-10.5ProMedica Cameron HospitalComment on above:Performed By: #### BMP #### [facility] ([id number]) [address], [address] [place], [place] [address]Gkecewir [Moles/Vol]101 mmol/JBvvwxv54-697RfbSxhqrn Cameron HospitalComment on above:Performed By: #### BMP #### [facility] ([id number]) [address], [address] [place], [place] [address]QU3 [Moles/Vol]31 mmol/OPdlrka27-50EfiJaeozl [facility] Comment on above:Performed By: #### BMP #### [facility] ([id number]) [address], [address] [place], [place] [address]Vgqtduerep [Mass/Vol]1.36 mg/dLHigh0.40-1.00ProOhio State University Wexner Medical CenterComment on above:Result Comment: METHOD TRACEABLE TO IDMS STANDARD Performed By: #### BMP #### [facility] ([id number]) [address], [address] [place], [place] [address]XKL/1.73 sq M.predicted among non-blacks MDRD (S/P/Bld) [Vol rate/Area]44 mL/min/{1.73_m2}Low>59ProOhio State University Wexner Medical CenterComment on above: Result Comment: Reported eGFR is based on the CKD-EPI 1 equation that does not use a race coefficient.Performed By: #### BMP #### [facility] ([id number]) [address], [address] [place], [place] [address]Ufghlli [Mass/Vol]134 mg/tMUyrn49-03MmpIkiywkOhio State University Wexner Medical Center Comment on above:Performed By: #### BMP #### [facility] ([id number]) [address], [address] [place], [place] [address]Ljnlbgdip [Moles/Vol]4.1 mmol/LNormal3.5-5.0ProOhio State University Wexner Medical CenterComment on above:Performed By: #### BMP #### [facility] ([id number]) [address], [address] [place], [place] [address]Klntkm [Moles/Vol]141 mmol/HOtyzvd521-787ZkzFrvhwz [place] HospitalComment on above:Performed By: #### BMP #### [facility] ([id number]) [address] [place], [place] [address]Bmch nitrogen [Mass/Vol]19 mg/dLNormal5-27ProOhio State University Wexner Medical CenterComment on above:Performed By: #### BMP #### [facility] ([id number]) [address] [place], [place] [address]Hmwxb Metabolic Panelon 32-56-0364Xftit gap [Moles/Vol]9 mmol/L5 - 15 mmol/[facility] Health SystemCalcium [Mass/Vol]9.1 mg/dL8.5 - 10.5 mg/dL ProMMercy Health Willard HospitalChloride [Moles/Vol]101 mmol/L98 - 109 mmol/[facility] Health SystemCO2 [Moles/Vol]31 mmol/L22 - 32 mmol/[facility] Creatinine [Mass/Vol]1.36 mg/dLHigh0.40 - 1.00 mg/dLAshtabula General Hospital Comment on above:METHOD TRACEABLE TO [facility] STANDARDeGFR (CKD-EPI)non-race glirgaejh21QdkWythe County Community HospitalComment on above: Reported eGFR is based on the CKD-EPI 2020 equation that does not use a race coefficient. Glucose [Mass/Vol]134 mg/tDNsne17 - 99 mg/dLAshtabula General Hospital Interpretation and review of laboratory resultsAbnoDuke University Hospital Potassium [Moles/Vol]4.1 mmol/L3.5 - 5.0 mmol/LProMedica Health SystemSodium [Moles/Vol]141 mmol/L134 - [address] mmol/[facility] [address] [facility] SystemUrea nitrogen [Mass/Vol]19 mg/dL5 - 27 mg/dLChildren's Hospital of PhiladelphiaNo Panel Informationon 30-15-9460LnqffEusebia Huertas DO 12/29/2023 3:11 PM Trigger Point Injection (CPT [address] or [address]): left gluteus tej on 12/29/2023 2:58 PM Indications: pain Details: 21 G needle Medications: 40 mg methylPREDNISolone acetate 40 MG/ML Outcome: tolerated well, no immediate complications Procedure, treatment alternatives, risks and benefits explained, specific risks discussed. [facility] Spine Single viewon 97-17-9586Bpmgwgi Result: Lateral lumbar and thoracic spine x-rays demonstrate to wedge deformities in the thoracic region both of them with a proximally 50 percent collapse. Estimated levels are T6 and T8. Impression: Stable appearance of compression fractures at T6 and T8 no new fractures Cipriano Huertas D.O.[facility] CenterRadiology Study observation (narrative)[facility] Memorial HospitalBASIC METABOLIC PANLon 55-92-8532Pvfrj gap [Moles/Vol] 7 mmol/LNormal5-15ProMedica Miller HospitalComment on above:Performed By: #### KEKE, , 2131-12, CBCA #### [facility] ([id number]) [address], [address] [place], [place] [address]Avqaqdt [Mass/Vol]9.0 mg/dLNormal8.5-10.5ProMedica Cameron HospitalComment on above:Performed By: #### KEKE, , 2131-12, CBCA #### [facility] ([id number]) [address], [address] [place], [place] [address]Mnvskhmr [Moles/Vol]105 mmol/MExdqht91-154RteHlinvu [place] HospitalComment on above:Performed By: #### KEKE, , 2131-12, CBCA #### [facility] ([id number]) [address], [address] [place], [place] [address]JF8 [Moles/Vol]28 mmol/ZNhylhi33-44QtfCcmogl [facility] Comment on above:Performed By: #### KEKE, , 2131-12, CBCA #### [facility] ([id number]) [address], [address] [place], [place] [address]Pznyrtugbe [Mass/Vol]1.23 mg/dLHigh0.40-1.00ProJoint Township District Memorial Hospital HospitalComment on above:Result Comment: METHOD TRACEABLE TO IDMS STANDARD Performed By: #### KEKE, , 2131-12, CBCA #### [facility] ([id number]) [address], [address] [place], [place] [address]LOS/1.73 sq M.predicted among non-blacks MDRD (S/P/Bld) [Vol rate/Area]50 mL/min/{1.73_m2}Low>59Pro[facility] Cameron HospitalComment on above: Result Comment: Reported eGFR is based on the CKD-EPI 2020 equation that does not use a race coefficient.Performed By: #### KEKE, , 2131-12, CBCA #### [facility] ([id number]) [address], [address] [place], [place] [address]Ilaqofg [Mass/Vol]88 mg/zDCzkpfh93-66MfaPncqnp [facility] Comment on above:Performed By: #### KEKE, , 2131-12, CBCA #### [facility] ([id number]) [address], [address] [place], [place] [address]Polipzvwu [Moles/Vol]3.9 mmol/LNormal3.5-5.0Pro[facility] Centerca Cameron HospitalComment on above:Performed By: #### KEKE, , 2131-12, CBCA #### [facility] ([id number]) [address] [address] [place], [place] [address]Wfnrie [Moles/Vol]140 mmol/RGxyolh861-778JdoJjkwxp [facility] HospitalComment on above:Performed By: #### KEKE, , 2131-12, CBCA #### [facility] ([id number]) [address], [address] [place], [place] [address]Gqld nitrogen [Mass/Vol]17 mg/dLNormal5-27Pro[facility] HospitalComment on above:Performed By: #### KEKE, , 2131-12, CBCA #### [facility] ([id number]) [address], [address] [place], [place] [address]TJM AND AUTO DIFFon [id number] BASOPHIL0.1 X10E9/LNormal 0.0-0.2Pro[facility] Cameron HospitalComment on above:Performed By: #### KEKE, , 2131-12, CBCA #### [facility] ([id number]) [address], [address] [place], [place] [address]GWGTLPEW NEUTROPHIL5.8 X10E9/LNormal1.5-6.6ProMed[facility] Cameron HospitalComment on above:Performed By: #### KEKE, , 2131-12, CBCA #### [facility] ([id number]) [address], [address] [place], [place] [address]Rntuumxoy/100 WBC (Bld)0.6 %NormalPike Community Hospital Comment on above:Performed By: #### KEKE, , 2131-12, CBCA #### [facility] ([id number]) [address] [address] [place], [place] [address]Dfnxlcgvthr (Bld) [#/Vol]0.2 10*3/uLNormal0.0-0.4ProJoint Township District Memorial Hospital HospitalComment on above:Performed By: #### KEKE, , 2131-12, CBCA #### [facility] ([id number]) [address], [address] [place], [place] [address]Fdtsbjsfiuy/100 WBC (Bld)1.9 %NormalPike Community Hospital Comment on above:Performed By: #### KEKE, , 2131-12, CBCA #### [facility] ([id number]) [address], [address] [place], [place] [address]Yjrcvyrouxg distribution width (RBC) [Ratio]17.0 %High11.5-15.0 [facility] Cameron HospitalComment on above:Performed By: #### KEKE, , , CBCA #### [facility] ([id number]) [address], [address] [place], [place] [address]Zbkaqnvfmi (Bld) [Volume fraction]33.9 %Bda38-66HbmCrvhxx [place] HospitalComment on above:Performed By: #### KEKE, , 2131-12, CBCA #### [facility] ([id number]) [address], [address] [place], [place] [address]Acgmvcoexv (Bld) [Mass/Vol]10.6 g/dLLow11.7-15.5ProMedKettering Health Dayton HospitalComment on above:Performed By: #### KEKE, , 2131-12, CBCA #### [facility] ([id number]) [address], [address] [place], [place] [address]Ahyrhnordna (Bld) [#/Vol]2.3 10*3/uLNormal1.0-3.5PKettering Memorial Hospital HospitalComment on above:Performed By: #### KEKE, , 2131-12, CBCA #### [facility] ([id number]) [address], [address] [place], [place] [address]Zxdyueuddxk/100 WBC (Bld)25.6 %NormalPike Community Hospital Comment on above:Performed By: #### KEKE, , 2131-12, CBCA #### [facility] ([id number]) [address], [address] [place], [place] [address]HRF (RBC) [Entitic mass]26.1 htKui64-08IycAadyryPike Community Hospital Comment on above:Performed By: #### KEKE, , 2131-12, CBCA #### [facility] ([id number]) [address], [address] [place], [place] [address]MQCS (RBC) [Mass/Vol]31.2 g/sAIqw21-24IblTxxzgzPike Community Hospital Comment on above:Performed By: #### KEKE, , 2131-12, CBCA #### [facility] ([id number]) [address], [address] [place], [place] [address]ZFK (RBC) [Entitic vol]84 bKPgpqvf51-563OyiYfkuxe [place] HospitalComment on above:Performed By: #### KEKE, , 2131-12, CBCA #### [facility] ([id number]) [address], [address] [place], [place] [address]Cuffjdvry (Bld) [#/Vol]0.6 10*3/uLNormal0-0.9ProOhio State University Wexner Medical CenterComment on above:Performed By: #### KEKE, , 2131-12, CBCA #### [facility] ([id number]) [address], [address] [place], [place] [address]Isdiagvni/100 WBC (Bld)6.8 %[facility] Comment on above:Performed By: #### KEKE, , 2131-12, CBCA #### [facility] ([id number]) [address], [address] [place], [place] [address]Sgeplzdlifc/100 WBC (Bld)65.1 %[facility] Comment on above:Performed By: #### KEKE, , 2131-12, CBCA #### [facility] ([id number]) [address], [address] [place], [place] [address]Fqprsicc mean volume (Bld) [Entitic vol]8.1 fLNormal7-12 ProMhill crest behavioral health servicesa Cameron HospitalComment on above:Performed By: #### KEKE, , , CBCA #### [facility] ([id number]) [address], [address] [place], [place] [address]Ckhafslql (Bld) [#/Vol]287 10*3/vVJyyrey441-678QgpBvzxcx Cameron HospitalComment on above:Performed By: #### KEKE, , 2131-12, CBCA #### [facility] ([id number]) [address], [address] [place], [place] [address]QME COUNT4.05 X10E12/LNormal3.80-5.20ProUniversity Hospitals Cleveland Medical Centerca [facility] Comment on above:Performed By: #### KEKE, , 2131-12, CBCA #### [facility] ([id number]) [address], [address] [place], [place] [address]AFO (Bld) [#/Vol]9.0 10*3/uLNormal4.0-11.0ProMedica Cameron HospitalComment on above:Performed By: #### KEKE, , 2131-12, CBCA #### [facility] ([id number]) [address], [address] [place], [place] [address]FCWLARNOHnb 59-86-1716Wcokzdaxd [Mass/Vol]2.2 mg/dLNormal1.8-2.6 [facility] Cameron HospitalComment on above:Performed By: #### KEKE, , , CBCA #### [facility] ([id number]) [address], [address] [place], [place] [address]FEIEOLB B12on 79-79-0724Thcnszqcm (Vitamin B12) [Mass/Vol]370 pg/dPIlxmfx784-725HjsTnmkth Cameron HospitalComment on above:Performed By: #### KEKE, , 2131-12, CBCA #### [facility] ([id number]) [address], [address] [place], [place] [address]QXPUV METABOLIC PANLon 36-12-4436Ksukb gap [Moles/Vol]14 mmol/L Normal5-15ProJoint Township District Memorial Hospital HospitalComment on above:Performed By: #### KAIDEN 2131-12, KEKE, CBCA #### [facility] ([id number]) [address] [place], [place] [address]Olmzgmf [Mass/Vol]9.4 mg/dLNormal8.5-10.5PSelect Medical Specialty Hospital - Cleveland-FairhillComment on above:Performed By: #### KAIDEN 2131-12, BMP, CBCA #### [facility] ([id number]) [address], [facility] [address] [place], [place] [address]Spgdodwh [Moles/Vol]104 mmol/WOioxgt55-404HwmKlddkx [place] HospitalComment on above:Performed By: #### KAIDEN 2131-12, KEKE, CBCA #### [facility] ([id number]) [address], [address] [place], [place] [address]OJ6 [Moles/Vol]27 mmol/TIzmodq38-10UdsWucnte [facility] Comment on above:Performed By: #### KAIDEN 2131-12, KEKE, CBCA #### [facility] ([id number]) [address] [place], [place] [address]Gvthekslar [Mass/Vol]1.85 mg/dLHigh0.40-1.00ProOhio State University Wexner Medical CenterComment on above:Result Comment: METHOD TRACEABLE TO IDMS STANDARD Performed By: #### KAIDEN 2131-12, BMP, CBCA #### [facility] ([id number]) [address] [address] [place], [place] [address]OIO/1.73 sq M.predicted among non-blacks MDRD (S/P/Bld) [Vol rate/Area]31 mL/min/{1.73_m2}Low>59ProOhio State University Wexner Medical CenterComment on above: Result Comment: Reported eGFR is based on the CKD-EPI 2020 equation that does not use a race coefficient.Performed By: #### KAIDEN 2131-12, BMP, CBCA #### [facility] ([id number]) [address], [address] [place], [place] [address]Slybaoc [Mass/Vol]128 mg/qUWynz91-68CgvXswhcpOhio State University Wexner Medical Center Comment on above:Performed By: #### KAIDEN 2131-12, BMP, CBCA #### [facility] ([id number]) [address], [address] [place] [address]Zhmmgqjig [Moles/Vol]3.9 mmol/LNormal3.5-5.0ProOhio State University Wexner Medical CenterComment on above:Performed By: #### KAIDEN 2131-12, BMP, CBCA #### [facility] ([id number]) [address], [address] [address]Hyjzhq [Moles/Vol]145 mmol/YPukclc771-064WooJdvwjz [place] HospitalComment on above:Performed By: #### KAIDEN 2131-12, BMP, CBCA #### [facility] ([id number]) [address], [address] [address]Pxep nitrogen [Mass/Vol]36 mg/dLHigh5-27ProOhio State University Wexner Medical CenterComment on above:Performed By: #### KAIDEN 2131-12, BMP, CBCA #### [facility] ([id number]) [address], [address] [place] [address]Qorrv Metabolic Panelon 84-12-4725Gnujk gap [Moles/Vol]14 mmol/L 5 - 15 mmol/LProMedica Health SystemCalcium [Mass/Vol]9.4 mg/dL8.5 - 10.5 mg/dL [facility] Health SystemChloride [Moles/Vol]104 mmol/L98 - 109 mmol/LProMedica Health SystemCO2 [Moles/Vol]27 mmol/L22 - 32 mmol/LProMedica Health System Creatinine [Mass/Vol]1.85 mg/dLHigh0.40 - 1.00 mg/dLAshtabula General Hospital Comment on above:METHOD TRACEABLE TO IDRI STANDARDeGFR (CKD-EPI)non-race uqorvrogx58Pnk- PINSaint John's Regional Health CenterComment on above: Reported eGFR is based on the CKD-EPI 2020 equation that does not use a race coefficient. Glucose [Mass/Vol]128 mg/dKNziq73 - 99 mg/dLAshtabula General Hospital Interpretation and review of laboratory resultsAbnormalAshtabula General Hospital Potassium [Moles/Vol]3.9 mmol/L3.5 - 5.0 mmol/LPrBlanchard Valley Health System [facility] SystemSodium [Moles/Vol]145 mmol/L134 - 146 mmol/UK HealthcareUrea nitrogen [Mass/Vol]36 mg/dLHigh5 - 27 mg/dLChildren's Hospital of Philadelphia CBC AND AUTO DIFFon 46-48-9199XRRRHLPO BASOPHIL0.0 X10E9/LNormal0.0-0.2PSelect Medical Specialty Hospital - Cleveland-FairhillComment on above:Performed By: #### KAIDEN 2131-12, BMP, CBCA #### [facility] ([id number]) [address], [address] [place], [place] [address]WOHFHOSX NEUTROPHIL5.8 X10E9/LNormal1.5-6.6Pike Community HospitalComment on above:Performed By: #### KAIDEN 2131-12, KEKE, CBCA #### [facility] ([id number]) [address] [facility] [place], [place] [address]Wvwljqeww/100 WBC (Bld)0.4 %NormalPike Community Hospital Comment on above:Performed By: #### KAIDEN 2131-12, BMP, CBCA #### [facility] ([id number]) [address], [address] [place], [place] [address]Mexubrswjga (Bld) [#/Vol]0.0 10*3/uLNormal0.0-0.4Pike Community HospitalComment on above:Performed By: #### KAIDEN 2131-12, BMP, CBCA #### [facility] ([id number]) [address], [address] [place], [place] [address]Hfexzzpfjrq/100 WBC (Bld)0.0 %[facility] Comment on above:Performed By: #### KAIDEN 2131-12, BMP, CBCA #### [facility] ([id number]) [address], [address] [place], [place] [address]Uyofbhtrfeg distribution width (RBC) [Ratio]16.2 %High11.5-15.0 [facility] Cameron HospitalComment on above:Performed By: #### KAIDEN 2131-12, BMP, CBCA #### [facility] ([id number]) [address], [facility] [address] [place], [place] [address]Oqetcxzuhg (Bld) [Volume fraction]35.1 %Mzcqsr07-30GlvCpzampOhio State University Wexner Medical CenterComment on above:Performed By: #### KAIDEN 2131-12, BMP, CBCA #### [facility] ([id number]) [address] [address] [place], [place] [address]Bjyiausijc (Bld) [Mass/Vol]11.3 g/dLLow11.7-15.5PSelect Medical Specialty Hospital - Cleveland-FairhillComment on above:Performed By: #### KAIDEN 2131-12, BMP, CBCA #### [facility] ([id number]) [address], [address] [place], [place] [address]Taeyqvxocpk (Bld) [#/Vol]1.1 10*3/uLNormal1.0-3.5PSelect Medical Specialty Hospital - Cleveland-FairhillComment on above:Performed By: #### KAIDEN 2131-12, BMP, CBCA #### [facility] ([id number]) [address], [address] [place], [place] [address]Epigejusccz/100 WBC (Bld)15.7 %[facility] Comment on above:Performed By: #### THYDasha, 2131-12, BMP, CBCA #### [facility] ([id number]) [address], [address] [place], [place] [address]REU (RBC) [Entitic mass]27.0 bjYeejur69-12RnoIjduno Miller HospitalComment on above:Performed By: #### THYDasha, 2131-12, BMP, CBCA #### [facility] ([id number]) [address], [address] [place], [place] [address]MHMC (RBC) [Mass/Vol]32.2 g/aNNinhiq96-09YjhGtasxi Miller HospitalComment on above:Performed By: #### KAIDEN, 2131-12, BMP, CBCA #### [facility] ([id number]) [address], [address] [place], [place] [address]UUC (RBC) [Entitic vol]84 yKUzlchn51-986YtcBkrmlj Miller HospitalComment on above:Performed By: #### THYDasha, 2131-12, BMP, CBCA #### [facility] ([id number]) [address], [address] [place], [place] [address]Himrnuqzz (Bld) [#/Vol]0.2 10*3/uLNormal0-0.9ProMedica Miller HospitalComment on above:Performed By: #### THYDasha, 2131-12, BMP, CBCA #### [facility] ([id number]) [address], [address] [place], [place] [address]Pdaweboee/100 WBC (Bld)2.3 %NormalProMedica Miller Hospital Comment on above:Performed By: #### THYR, 2131-12, BMP, CBCA #### [facility] ([id number]) [address], [address] [place], [place] [address]Vjhjmoketqi/100 WBC (Bld)81.6 %NormalProMedica Miller Hospital Comment on above:Performed By: #### KAIDEN, 2131-12, BMP, CBCA #### [facility] ([id number]) [address], [address] [place], [place] [address]Swmstrpt mean volume (Bld) [Entitic vol]8.1 fLNormal7-12 [facility] HospitalComment on above:Performed By: #### KAIDEN, 2131-12, BMP, CBCA #### [facility] ([id number]) [address], [address] [place], [place] [address]Zitqnhtqm (Bld) [#/Vol]380 10*3/hNJdoeuu415-675QvtJawueo [place] HospitalComment on above:Performed By: #### KAIDEN, 2131-12, BMP, CBCA #### [facility] ([id number]) [address], [address] [place] [address]YEM COUNT4.19 X10E12/LNormal3.80-5.20[facility] Comment on above:Performed By: #### KAIDEN, 2131-12, BMP, CBCA #### [facility] ([id number]) [address], [address] [place] [address]KZU (Bld) [#/Vol]7.2 10*3/uLNormal4.0-11.0P[facility] HospitalComment on above:Performed By: #### KAIDEN, 2131-12, BMP, CBCA #### [facility] ([id number]) [address], [address] [place] [address]BFR auto differentialon 35-86-4744Kweagvosq (Bld) [#/Vol]0.0 10*3/uLProMedica Health SystemBasophils/100 WBC (Bld)0.4 %ProMSt. John's Hospital SystemEosinophils (Bld) [#/Vol]0.0 10*3/uLProMedica Health SystemEosinophils/100 WBC (Bld)0.0 %[facility] HospitalErythrocyte distribution width (RBC) [Ratio]16.2 %High11.5 - 15.0 %[facility] HospitalHematocrit (Bld) [Volume fraction]35.1 %35 - 47 %[facility] HospitalHemoglobin (Bld) [Mass/Vol]11.3 g/dLLow11.7 - 15.5 g/dLAshtabula General HospitalInterpretation and review of laboratory resultsAbnormSumma Health Wadsworth - Rittman Medical CenterLymphocytes (Bld) [#/Vol]1.1 10*3/[facility] Memorial HospitalLymphocytes/100 WBC (Bld)15.7 %[facility] HospitalMCH (RBC) [Entitic mass]27.0 pg27 - [address] Elizabeth Youngstown HospitalMCHC (RBC) [Mass/Vol]32.2 g/dL32 - 36 g/dLAshtabula General HospitalMCV (RBC) [Entitic vol]84 fL80 - 100 [facility] HospitalMonocytes (Bld) [#/Vol]0.2 10*3/[facility] Memorial HospitalMonocytes/100 WBC (Bld)2.3 %[facility] HospitalNeutrophils (Bld) [#/Vol]5.8 10*3/[facility] Memorial HospitalNeutrophils/100 WBC (Bld)81.6 % [facility] HospitalPlatelet mean volume (Bld) [Entitic vol]8.1 fL7 - 12 fL [facility] HospitalPlatelets (Bld) [#/Vol]380 10*3/[facility] RBC (Bld) [#/Vol]4.19 10*6/[facility] HospitalWBC corrected for nucl RBC Auto (Bld) [#/Vol]7.2PVA hospitalCobalamin (Vitamin B12) [Mass/Vol]on 44-89-4892PdlCraxmsMercy Health St. Elizabeth Youngstown HospitalTHYROID PROFILEon 12-40-6572Snqm T4 [Mass/Vol]1.19 ng/dLNormal0.61-1.60[facility] Comment on above:Performed By: #### THYR, 2132-9, BMP, CBCA #### [facility] ([id number]) [address], [address] [place], [place] [address]IVB9.11 uIU/mLLow0.49-4.67[facility] HospitalComment on above:Performed By: #### THYR, 2131-12, BMP, CBCA #### [facility] ([id number]) [address], [address] [place], [place] [address]Aaoxpls profile includes TSH FT4on 47-82-0487Nsbr T4 [Mass/Vol] 1.19 ng/dL0.61 - 1.60 ng/dLAshtabula General HospitalInterpretation and review of laboratory resultsAbnormalDuke Regional Hospital Qn0.11 m[IU]/LLowChildren's Hospital of PhiladelphiaVITAMIN B12on 58-52-2052Lhefuuytk (Vitamin B12) [Mass/Vol]204 pg/kYBnzzfu392-821OleZvzmek [place] HospitalComment on above: Performed By: #### THYR, 2131-12, BMP, CBCA #### [facility] ([id number]) [address] [place], [place] [address]Ovbugkb B12on 24-50-7021Qngcnciwe (Vitamin B12) [Mass/Vol]204 pg/mL180 - 914 pg/mLAshtabula General HospitalPOCT Influenza A/Influenza B/SARS-COV-2 Veritoron 56-91-9940Gzxqthdt Poct Influenza A AntigenNegative [facility] HospitalExternal Poct Influenza B AntigenNegativeDorothea Dix HospitalARS-CoV-2 (COVID-19) Ag IA.rapid Ql (Resp)NegativeChildren's Hospital of PhiladelphiaXR Chest PA and Lateralon 09-24-2023 Clinical history: [...] Tristen Neely MD on 09/24/2023 11:13 PM [facility] HospitalRadiology Study observation (narrative)[facility] HospitalXR Chest PA and LateralOrdered By: Tristen Neely on 33-76-5314WrxOkjkecMercy Health St. Elizabeth Youngstown Hospital Work Phone: Basic Metabolic Panelon 77-28-9601Ivyhm gap [Moles/Vol]8 mmol/L5 - 15 mmol/LProMedica Health SystemCalcium [Mass/Vol]9.0 mg/dL8.5 - 10.5 mg/dLProMediShelby Memorial Hospital SystemChloride [Moles/Vol]100 mmol/L98 - 109 mmol/LProMedica Health SystemCO2 [Moles/Vol]28 mmol/L22 - 32 mmol/LProMedica Health SystemCreatinine [Mass/Vol]1.06 mg/dLHigh0.40 - 1.00 mg/dLAshtabula General HospitalComment on above:METHOD TRACEABLE TO [facility] STANDARDeGFR (CKD-EPI)non-race lerndshdx[address] [place], [place] [address]Comment on above: Reported eGFR is based on the CKD-EPI 1 equation that does not use a race coefficient. Glucose [Mass/Vol]148 mg/eEMqdi93 - 99 mg/dLAshtabula General Hospital Interpretation and review of laboratory resultsAbnoLehigh Valley Hospital [facility]yl[facility] Potassium [Moles/Vol]3.4 mmol/LLow3.5 - 5.0 mmol/LProMedica Health SystemSodium [Moles/Vol]136 mmol/L134 - 146 mmol/LProMedica Health SystemUrea nitrogen [Mass/Vol]24 mg/dL5 - 27 mg/dLChildren's Hospital of Philadelphia Basic Metabolic Panelon 25-03-5729Nqdud gap [Moles/Vol]9 mmol/L5 - 15 mmol/L [facility] SystemCalcium [Mass/Vol]8.8 mg/dL8.5 - 10.5 mg/dLAshtabula General HospitalChloride [Moles/Vol]103 mmol/L98 - 109 mmol/LProMedwalker county hospital Health SystemCO2 [Moles/Vol]27 mmol/L22 - 32 mmol/[facility] SystemCreatinine [Mass/Vol]1.18 mg/dLHigh0.40 - 1.00 mg/dLAshtabula General HospitalComment on above:METHOD TRACEABLE TO [facility] STANDARDeGFR (CKD-EPI)non-race hwcctohzx70VcwWythe County Community HospitalComment on above: Reported eGFR is based on the CKD-EPI 1 equation that does not use a race coefficient. Glucose [Mass/Vol]157 mg/xBLxmo84 - 99 mg/dLAshtabula General Hospital Interpretation and review of laboratory resultsAbnoLehigh Valley Hospital - Schuylkill [address] [facility] Potassium [Moles/Vol]3.7 mmol/L3.5 - 5.0 mmol/LProMedica Health SystemSodium [Moles/Vol]139 mmol/L134 - 146 mmol/[facility]arn[facility] HospitaloMedwalker county hospital Health SystemUrea nitrogen [Mass/Vol]18 mg/dL5 - 27 mg/dLChildren's Hospital of Philadelphia Basic Metabolic Panelon 12-24-0737Ieukn gap [Moles/Vol]5 mmol/L5 - 15 mmol/L [facility] HospitalCalcium [Mass/Vol]8.7 mg/dL8.5 - 10.5 mg/dLAshtabula General HospitalChloride [Moles/Vol]104 mmol/L98 - 109 mmol/[facility] SystemCO2 [Moles/Vol]27 mmol/L22 - 32 mmol/[facility] SystemCreatinine [Mass/Vol]1.57 mg/dLHigh0.40 - 1.00 mg/dLAshtabula General HospitalComment on above:METHOD TRACEABLE TO IDRI STANDARDeGFR (CKD-EPI)non-race ogozbphif64Fsw- [facility] HospitalComment on above: Reported eGFR is based on the CKD-EPI 2020 equation that does not use a race coefficient. Glucose [Mass/Vol]107 mg/wSAslv42 - 99 mg/dLAshtabula General Hospital Interpretation and review of laboratory resultsAbnoDuke University Hospital Potassium [Moles/Vol]3.6 mmol/L3.5 - 5.0 mmol/[facility] SystemSodium [Moles/Vol]136 mmol/L134 - 146 mmol/UK HealthcareUrea nitrogen [Mass/Vol]21 mg/dL5 - 27 mg/dLChildren's Hospital of Philadelphia Blood gas, venouson 58-73-0051Ywbqtiwl patency Wrist artery --pre arterial punctureAshtabula General HospitalBase deficit (Bld) [Moles/Vol]1.0 mmol/[facility] HealthcareCO2 (BldV) [Partial pressure]67.8 mm[Hg][facility] Medical CenterHCO3 (Bld) [Moles/Vol]28.0 mmol/LHighAshtabula General HospitalInterpretation and review of laboratory resultsAbnormGeisinger Medical Center SystemOxygen (BldV) [Partial pressure]43 mm[Hg][facility] HospitalOxygen therapy source and amount [CARE]NCOhioHealth Grady Memorial Hospital SystemOxygen/Inspired gas setting [Volume Fraction] Fanmntndtt20 %[facility] HospitalpH (BldV)7.224 [pH]Low7.320 - 7.420Dorothea Dix HospitalaO2% Calculated from oxygen partial pressure (BldV) [Mass fraction]68.0 %Low80.0 - PINF %[facility] Hospitalpecimen site NarrativeN/AProGalion Hospitalpecimen type Nom (Spec)VENOUSChildren's Hospital of PhiladelphiaCBC auto differentialon 47-76-4521Gjhwfxlrc (Bld) [#/Vol]0.1 10*3/[facility] HospitalBasophils/100 WBC (Bld)0.6 % [facility] HospitalEosinophils (Bld) [#/Vol]0.2 10*3/[facility] Memorial HospitalEosinophils/100 WBC (Bld)2.2 %[facility] HospitalErythrocyte distribution width (RBC) [Ratio]16.6 %High11.5 - 15.0 %[facility] Hematocrit (Bld) [Volume fraction]35.0 %35 - 47 %[facility] Hemoglobin (Bld) [Mass/Vol]11.3 g/dLLow11.7 - 15.5 g/dLAshtabula General Hospital Interpretation and review of laboratory resultsAbnormSumma Health Wadsworth - [facility] Center Lymphocytes (Bld) [#/Vol]2.6 10*3/[facility] Memorial HospitalLymphocytes/100 WBC (Bld)25.4 %[facility] HospitalMCH (RBC) [Entitic mass]29.3 pg27 - 34 pg [facility] HospitalMCHC (RBC) [Mass/Vol]32.3 g/dL32 - 36 g/dLAshtabula General HospitalMCV (RBC) [Entitic vol]91 fL80 - 100 [facility] Monocytes (Bld) [#/Vol]0.6 10*3/[facility] HospitalMonocytes/100 WBC (Bld) 5.7 %[facility] General HospitalNeutrophils (Bld) [#/Vol]6.7 10*3/[facility]arman[facility] Cancer CenterNeutrophils/100 WBC (Bld)66.1 %[facility] HospitalPlatelet mean volume (Bld) [Entitic vol]7.9 fL7 - 12 [facility] HospitalPlatelets (Bld) [#/Vol]308 10*3/[facility] HospitalRBC (Bld) [#/Vol]3.86 10*6/uLAshtabula General HospitalWBC corrected for nucl RBC Auto (Bld) [#/Vol]10.2PVA hospitalCritical Careon 60-05-3379Bfzlyp Vohra, MD 07/25/2023 7:27 PM Critical Care [...] performing treatments and interventions and examination of patientProHealth Waukesha Memorial Hospital SystemECG 12 leadon 25-22-1767KZSUEVQKLHVSWBRebYucrdh Health SystemLaboratory - Microbiology and Antimicrobial susceptibilityon 07-25-2023 FLUAV+FLUBV RNA HUBERT+probe Ql (Unsp spec)NegativeNegative^NegativeAshtabula General HospitalLactate (P yong) [Moles/Vol]on [id number] Health St. [facility] Lactate w/ Reflexon [id number] (P yong) [Moles/Vol]1.1 mmol/L0.4 - 2.0 mmol/LPrCleveland Clinic Akron General Lodi HospitalComment on above: Result did not trigger repeat Lactate, re-order if needed. SARS/FLU A+B/RSV by NAAT/Molecular (M4RT Collection Tube)on [id number] RNA HUBERT+probe Nom (Unsp spec)NegativeNegative^NegativeAshtabula General Hospital SARS-CoV-2 (COVID-19) RNA HUBERT+probe Ql (Resp)Not detectedNot Detected^Not DetectedAshtabula General HospitalComment on above:NOTE The Xpert Xpress SARS-CoV-2/Flu/RSV [...] operators who are performing tests using either [employer] or [employer] systems and is limited to laboratories that [...] specimen repeat. Fact Sheet for Healthcare Providers: https://www.fda.gov/media/956575/download Fact Sheet for Patients: https://www.fda.gov/media/802433/download [facility] SystemTroponin Ion [id number] I.cardiac [Mass/Vol]0.01 ng/mL0.00 - 0.04 ng/mLProMedica Trihealth [facility] Hospital SystemTroponin I.cardiac [Mass/Vol]on [id number] Health St. Elizabeth [facility] HospitalXR Chest PA and Lateralon [id number] Patel MD - 07/25/2023 Procedure: Chest x-ray performed Number of views:2 History:Shortness of breath Comparison:07/24/2023 Findings: The heart and lungs show no acute findings, and the mediastinum and satnam are grossly negative . Impression: 1. No acute change. Finalized by Abdelrahman Patel MD on 07/25/2023 5:16 PM [facility] HospitalRadiology Study observation (narrative)[facility] HospitalXR Chest PA and LateralOrdered By: Abdelrahman Patel on [id number] Health St. [facility] Work Phone: Basi Metabolic Panelon [id number] gap [Moles/Vol]8 mmol/L5 - 15 mmol/[facility] SystemCalcium [Mass/Vol]9.5 mg/dL8.5 - 10.5 mg/dLAshtabula General HospitalChloride [Moles/Vol]102 mmol/L98 - 109 mmol/[facility] SystemCO2 [Moles/Vol]32 mmol/L22 - 32 mmol/[facility] SystemCreatinine [Mass/Vol]1.27 mg/dLHigh0.40 - 1.00 mg/dLAshtabula General HospitalComment on above:METHOD TRACEABLE TO [facility] STANDARDeGFR (CKD-EPI)non-race eswtmckib70LkdWythe County Community HospitalComment on above: Reported eGFR is based on the CKD-EPI 2020 equation that does not use a race coefficient. Glucose [Mass/Vol]87 mg/dL65 - 99 mg/dLAshtabula General HospitalInterpretation and review of laboratory resultsAbnormalAshtabula General HospitalPotassium [Moles/Vol]4.0 mmol/L3.5 - 5.0 mmol/LProMedica Health SystemSodium [Moles/Vol] 142 mmol/L134 - 146 mmol/[facility] SystemUrea nitrogen [Mass/Vol]15 mg/dL5 - 27 mg/dLChildren's Hospital of PhiladelphiaCBC auto differentialon 75-63-3030Ddvxgughn (Bld) [#/Vol]0.1 10*3/uLAshtabula General HospitalBasophils/100 WBC (Bld)0.6 %[facility] HospitalEosinophils (Bld) [#/Vol]0.1 10*3/[facility] HospitalEosinophils/100 WBC (Bld)1.3 %[facility] HospitalErythrocyte distribution width (RBC) [Ratio]19.3 %High11.5 - 15.0 %[facility] HospitalHematocrit (Bld) [Volume fraction]35.7 %35 - 47 % [facility] HospitalHemoglobin (Bld) [Mass/Vol]11.5 g/dLLow11.7 - 15.5 g/dL [facility] HospitalInterpretation and review of laboratory resultsAbnormal [facility] HospitalLymphocytes (Bld) [#/Vol]1.5 10*3/[facility] HospitalLymphocytes/100 WBC (Bld)14.5 %[facility] CampusH (RBC) [Entitic mass]29.3 pg27 - [address] [facility] Medical CenterMCHC (RBC) [Mass/Vol]32.2 g/dL32 - 36 g/dLAshtabula General HospitalMCV (RBC) [Entitic vol]91 fL80 - 100 [facility] HospitalMonocytes (Bld) [#/Vol]0.6 10*3/[facility] Monocytes/100 WBC (Bld)5.8 %[facility] HospitalNeutrophils (Bld) [#/Vol]8.1 10*3/[facility] CenterNeutrophils/100 WBC (Bld)77.8 %[facility] HospitalPlatelet mean volume (Bld) [Entitic vol]8.9 fL7 - 12 [facility] HospitalPlatelets (Bld) [#/Vol]321 10*3/[facility] HospitalRBC (Bld) [#/Vol]3.92 10*6/[facility] HospitalWBC corrected for nucl RBC Auto (Bld) [#/Vol]10.5PVA hospitalTSH with Reflexon 85-76-2195ODN Qn0.80 m[IU]/[facility] HospitalCBC AND AUTO DIFFon 80-05-6303BZZHGAXA BASOPHIL0.1 X10E9/LNormal0.0-0.2[facility] Tuberculosis HospitalComment on above:Performed By: #### XENIA, 06974-9, , CBCA #### [facility] ([id number]) [address] [facility] [facility] [place], [place] [address]DCFRHRGL NEUTROPHIL6.7 X10E9/LHigh1.5-6.6ProMadison HealthComment on above:Performed By: #### XENIA, 22830-2, , CBCA #### [facility] ([id number]) [address] [place], [place] [address]Elipggayl/100 WBC (Bld)1.2 %NormalKettering Health – Soin Medical Center Comment on above:Performed By: #### XENIA, 24341-0, , CBCA #### [facility] ([id number]) [address] [place], [place] [address]Frcjfmloysb (Bld) [#/Vol]0.2 10*3/uLNormal0.0-0.4ProMadison HealthComment on above:Performed By: #### XENIA, 07883-6, , CBCA #### [facility] ([id number]) [address] [place], [place] [address]Cpfhdbvtnkw/100 WBC (Bld)2.2 %NormalKettering Health – Soin Medical Center Comment on above:Performed By: #### XENIA, 33761-5, , CBCA #### [facility] ([id number]) [address] [place], [place] [address]Azeqzfokkyh distribution width (RBC) [Ratio]17.3 %High11.5-15.0 ProMFisher-Titus Medical CenterComment on above:Performed By: #### XENIA, 60826-4, , CBCA #### [facility] ([id number]) [address] [place], [place] [address]Hrkijxurcn (Bld) [Volume fraction]40.6 %Hduvxy53-71SuzJziqluMadison HealthComment on above:Performed By: #### CMP, 58938-5, , CBCA #### [facility] ([id number]) [address] [place], [place] [address]Pbrlkuqgcs (Bld) [Mass/Vol]13.3 g/uLSmvood73.7-15.5PProMedica Defiance Regional HospitalComment on above:Performed By: #### CMP, 69717-1, 18074-0, CBCA #### [facility] ([id number]) [address] [facility] [facility] [place], [place] [address]Ujhybpibegf (Bld) [#/Vol]2.4 10*3/uLNormal1.0-3.5PProMedica Defiance Regional HospitalComment on above:Performed By: #### CMP, 17999-8, , CBCA #### [facility] ([id number]) [address] [place], [place] [address]Bwklsikulvm/100 WBC (Bld)22.7 %NormalProMadison Health Comment on above:Performed By: #### CMP, 66115-0, , CBCA #### [facility] ([id number]) [address] [place], [place] [address]LWZ (RBC) [Entitic mass]28.4 ehPgtcga03-32AgvFmdffeKettering Health – Soin Medical CenterComment on above:Performed By: #### CMP, 63145-8, , CBCA #### [facility] ([id number]) [address] [place], [place] [address]OCJN (RBC) [Mass/Vol]32.7 g/aBJnkyuv90-57YghIuhrmwMadison HealthComment on above:Performed By: #### CMP, 65584-4, , CBCA #### [facility] ([id number]) [address] [place], [place] [address]TZU (RBC) [Entitic vol]87 eWEnzqms17-189YilHkjota Baypark HospitalComment on above:Performed By: #### CMP, 82749-0, 29667-3, CBCA #### [facility] ([id number]) [address] [place], [place] [address]Nuqliibro (Bld) [#/Vol]1.2 10*3/uLHigh0-0.9ProMadison HealthComment on above:Performed By: #### CMP, 69146-4, 61817-5, CBCA #### [facility] ([id number]) [address] [place], [place] [address]Iwgomntsh/100 WBC (Bld)11.2 %NormalKettering Health – Soin Medical Center Comment on above:Performed By: #### CMP, 72202-1, , CBCA #### [facility] ([id number]) [address] [place], [place] [address]Lztwgilydeg/100 WBC (Bld)62.7 %NormalKettering Health – Soin Medical Center Comment on above:Performed By: #### CMP, 85331-8, , CBCA #### [facility] ([id number]) [address] [place], [place] [address]Tnipdjiq mean volume (Bld) [Entitic vol]8.3 fLNormal7-12 ProMFisher-Titus Medical CenterComment on above:Performed By: #### CMP, 53077-9, , CBCA #### [facility] ([id number]) [address] [place], [place] [address]Lhshlftfp (Bld) [#/Vol]301 10*3/fETwiqqh956-204LfkMnenkr [facility] HospitalComment on above:Performed By: #### CMP, 55813-4, 93662-6, CBCA #### [facility] ([id number]) [address] [place], [place] [address]ZIL COUNT4.68 X10E12/LNormal3.80-5.20[facility] Comment on above:Performed By: #### CMP, 76635-3, 49985-2, CBCA #### [facility] ([id number]) [address] [place], [place] [address]RNA (Bld) [#/Vol]10.7 10*3/uLNormal4.0-11.0ProMadison HealthComment on above:Performed By: #### XENIA, 65016-1, , CBCA #### [facility] ([id number]) [address] [place], [place] [address]BVONZQSGDJVIM METABOLIC PANELon 26-63-1449Zuitxjc [Mass/Vol]3.5 g/dLNormal3.2-5.3ProMedSouthview Medical Center HospitalComment on above:Performed By: #### XENIA, 20582-8, 29565-0, CBCA #### [facility] ([id number]) [address] [place], [place] [address]ZHM [Catalytic activity/Vol]72 U/SBaserh58-076NppIlggpgMadison HealthComment on above:Performed By: #### XENIA, 55832-3, 12581-5, CBCA #### [facility] ([id number]) [address] [place], [place] [address]MYI [Catalytic activity/Vol]42 U/LHigh0-31PProMedica Defiance Regional HospitalComment on above:Performed By: #### XENIA, 15421-5, , CBCA #### [facility] ([id number]) [address] [place], [place] [address]Ojsev gap [Moles/Vol]9 mmol/LNormal5-15ProAdena Health System HospitalComment on above:Performed By: #### CMP, 12603-4, 22868-6, CBCA #### [facility] ([id number]) [address] [place], [place] [address]FNQ [Catalytic activity/Vol]22 U/LNormal0-41ProAdena Health System HospitalComment on above:Performed By: #### XENIA, 12698-4, 05667-5, CBCA #### [facility] ([id number]) [address] [place], [place] [address]Fxzsnnfdh [Mass/Vol]0.8 mg/dLNormal0.3-1.2PProMedica Defiance Regional HospitalComment on above:Performed By: #### XENIA, 07787-3, , CBCA #### [facility] ([id number]) [address] [facility] [facility] [place], [place] [address]Svmihdk [Mass/Vol]10.2 mg/dLNormal8.5-10.5PProMedica Defiance Regional HospitalComment on above:Performed By: #### XENIA, 38685-0, , CBCA #### [facility] ([id number]) [address] [place], [place] [address]Hhbakaws [Moles/Vol]105 mmol/ZOcfqry34-413YdkPsuyhcKettering Health – Soin Medical CenterComment on above:Performed By: #### XENIA, 88355-1, , CBCA #### [facility] ([id number]) [address] [place], [place] [address]VZ1 [Moles/Vol]22 mmol/YIizmnd65-14JycPtvlslProMedica Defiance Regional Hospital Comment on above:Performed By: #### XENIA, 31785-4, , CBCA #### [facility] ([id number]) [address] [place], [place] [address]Bplqssxpfe [Mass/Vol]1.29 mg/dLHigh0.40-1.00[facility] Medical CenterComment on above:Result Comment: METHOD TRACEABLE TO IDMS STANDARD Performed By: #### XENIA, 83872-1, , CBCA #### [facility] ([id number]) [address] [place], [place] [address]LCW/1.73 sq M.predicted among non-blacks MDRD (S/P/Bld) [Vol rate/Area]48 mL/min/{1.73_m2}Low>59ProMadison HealthComment on above: Result Comment: Reported eGFR is based on the CKD-EPI 2020 equation that does not use a race coefficient.Performed By: #### XENIA, 77195-3, , CBCA #### [facility] ([id number]) [address] [place], [place] [address]Iirtuwy [Mass/Vol]116 mg/lCErqy47-08MzeSbuottMadison Health Comment on above:Performed By: #### XENIA, 24791-6, 61234-7, CBCA #### [facility] ([id number]) [address] [facility] [facility] [place], [place] [address]Wmcjnvgul [Moles/Vol]3.2 mmol/LLow3.5-5.0ProMadison HealthComment on above:Performed By: #### XENIA, 80098-9, 74186-6, CBCA #### [facility] ([id number]) [address] [place], [place] [address]Xhnjwwp [Mass/Vol]7.8 g/dLNormal6.0-8.0ProMadison HealthComment on above:Performed By: #### XENIA, 36663-1, , CBCA #### [facility] ([id number]) [address] [facility] [place], [place] [address]Dfydfs [Moles/Vol]136 mmol/SQoypab981-149BseOdaxnz [facility] HospitalComment on above:Performed By: #### XENIA, 57502-6, , CBCA #### [facility] ([id number]) [address] [facility] [place], [place] [address]Zqms nitrogen [Mass/Vol]30 mg/dLHigh5-23ProMadison HealthComment on above:Performed By: #### XENIA, 37124-2, , CBCA #### [facility] ([id number]) [address] [facility] [place], [place] [address]UO ABDOMEN AND PELVIS WO CONTon 32-02-9768PS ABDOMEN AND PELVIS WO CONTCT ABDOMEN AND [...] by Kai Finn MD on 04/28/2023 10:39 PMNormalProMadison HealthGlucose Glucometer (BldC) [Mass/Vol]on 27-97-5107Bzxqafx [Mass/Vol]148 mg/eEHewe52-15OniQqxnwmKettering Health – Soin Medical CenterGlucose [Mass/Vol]116 mg/eGDbve67-37 [facility] Medical CenterGlucose [Mass/Vol]134 mg/lODmlw09-96GfyDxprqxKettering Health – Soin Medical CenterMAGNESIUMon 26-83-3489Vjptulbmi [Mass/Vol]2.3 mg/dLNormal1.8-2.6 [facility] Medical CenterComment on above:Performed By: #### [facility], 61301-7, 61996-2, CBCA #### [facility] ([id number]) [address] [facility] [facility] [place], [place] [address]Gjrwihngas [Mass/Vol]on 27-45-7937QXGOJJPUEI73.1 ug/mLNormal 5.0-40.0K[facility] So[facility] Medical CenterComment on above:Result Comment: Peak 30-40 ug/mL Trough 5-20 ug/ml Performed By: #### XENIA, 74812-8, , CBCA #### [facility] ([id number]) [address] [facility] [place], [place] [address]VNW AND AUTO DIFFon 47-26-0202AHNONFHU BASOPHIL0.1 X10E9/LNormal 0.0-0.2ProMedJ.W. Ruby Memorial HospitalComment on above:Performed By: #### XENIA, 36217- 0, , CBCA #### [facility] ([id number]) [address] [facility] [place], [place] [address]Fmescokgz/100 WBC (Bld)1.0 %NormalProMadison Health Comment on above:Performed By: #### XENIA, 97157-5, , CBCA #### [facility] ([id number]) [address] [facility] [place], [place] [address]Vmvvfgondkg distribution width (RBC) [Ratio]17.6 %High11.5-15.0 [facility] HospitalComment on above:Performed By: #### XENIA, 17065-0, , CBCA #### [facility] ([id number]) [address] [facility] [place], [place] [address]Fscjfmipxw (Bld) [Volume fraction]42.6 %Vwubpy71-16JzxAzrlzpMadison HealthComment on above:Performed By: #### XENIA, 83470-0, , CBCA #### [facility] ([id number]) [address] [facility] [place], [place] [address]Uipunhiwnh (Bld) [Mass/Vol]13.6 g/hYAjdpdp95.7-15.5PProMedica Defiance Regional HospitalComment on above:Performed By: #### XENIA, 83784-8, , CBCA #### [facility] ([id number]) [address] [facility] [place], [place] [address]UTBSXKXCNA, ATYPICAL1.9 %NormalProMadison HealthComment on above:Performed By: #### CMP, 62191-0, , CBCA #### [facility] ([id number]) [address] [facility] [place], [place] [address]Llktjddkkxh (Bld) [#/Vol]3.1 10*3/uLNormal1.0-3.5Pro[facility] HospitalComment on above:Performed By: #### CMP, 90472-5, 93421-1, CBCA #### [facility] ([id number]) [address] [place], [place] [address]Dakytwlyteh/100 WBC (Bld)29.5 %NormalProMadison Health Comment on above:Performed By: #### XENIA, 48897-7, , CBCA #### [facility] ([id number]) [address] [facility] [place], [place] [address]DPK (RBC) [Entitic mass]27.7 bmOjdukf76-31GvaFdpvzlMadison HealthComment on above:Performed By: #### XENIA, 37962-6, , CBCA #### [facility] ([id number]) [address] [facility] [place], [place] [address]FRBM (RBC) [Mass/Vol]32.0 g/fWAthqeh27-82TjlTwcfunMadison HealthComment on above:Performed By: #### CMP, 14619-2, , CBCA #### [facility] ([id number]) [address] [facility] [place], [place] [address]IBZ (RBC) [Entitic vol]87 kXSxshvl55-920UnnEjgyun [facility] HospitalComment on above:Performed By: #### CMP, 10223-4, 13724-4, CBCA #### [facility] ([id number]) [address] [facility] [place], [place] [address]Ewyeabfxh (Bld) [#/Vol]1.2 10*3/uLHigh0-0.9ProMadison HealthComment on above:Performed By: #### CMP, 27990-3, 82666-5, CBCA #### [facility] ([id number]) [address] [place], [place] [address]Rukvapklo/100 WBC (Bld)12.4 %NormalKettering Health – Soin Medical Center Comment on above:Performed By: #### XENIA, 26204-2, , CBCA #### [facility] ([id number]) [address] [place], [place] [address]Vijhmfthqvh (Bld) [#/Vol]5.4 10*3/uLNormal1.5-6.6ProMadison HealthComment on above:Performed By: #### XENIA, 69140-5, 88891-7, CBCA #### [facility] ([id number]) [address] [place], [place] [address]Gcpidirc mean volume (Bld) [Entitic vol]8.6 fLNormal7-12 ProMedicWayne HealthCare Main CampusComment on above:Performed By: #### XENIA, 72772-0, , CBCA #### [facility] ([id number]) [address] [place], [place] [address]Mxkqcnfly (Bld) [#/Vol]398 10*3/wXJiajde489-027NkjRwjgct [facility] HospitalComment on above:Performed By: #### XENIA, 12855-8, , CBCA #### [facility] ([id number]) [address] [place], [place] [address]IIUKSIASCUMTL1+AbnormalNONEProMedica Oregon State Tuberculosis HospitalComment on above:Performed By: #### XENIA, 37618-4, , CBCA #### [facility] ([id number]) [address] [place], [place] [address]OXX COUNT4.92 X10E12/LNormal3.80-5.20ProMadison Health Comment on above:Performed By: #### CMP, 62396-6, , CBCA #### [facility] ([id number]) [address] [place], [place] [address]IMU OMNHUBAUDZ93.2 %NormalProMedica Baypark HospitalComment on above:Performed By: #### CMP, 85904-3, , CBCA #### [facility] ([id number]) [address] [place], [place] [address]PXQ (Bld) [#/Vol]9.7 10*3/uLNormal4.0-11.0[facility] HospitalComment on above:Performed By: #### XENIA, 84224-1, , CBCA #### [facility] ([id number]) [address] [place], [place] [address]AFVPLRNDRKDFN METABOLIC PANELon 53-59-1394Hmjqtfh [Mass/Vol]3.8 g/dLNormal3.2-5.3[facility] HospitalComment on above:Performed By: #### XENIA, 46014-1, , CBCA #### [facility] ([id number]) [address] [place], [place] [address]QRV [Catalytic activity/Vol]80 U/TCsaxcu83-683YedSckuzl [facility] HospitalComment on above:Performed By: #### XENIA, 10898-3, , CBCA #### [facility] ([id number]) [address] [place], [place] [address]BWG [Catalytic activity/Vol]49 U/LHigh0-31ProMedSouthview Medical Center HospitalComment on above:Performed By: #### XENIA, 92376-4, , CBCA #### [facility] ([id number]) [address] [place], [place] [address]Zqkqe gap [Moles/Vol]11 mmol/LNormal5-15[facility] HospitalComment on above:Performed By: #### CMP, 77245-2, , CBCA #### [facility] ([id number]) [address] [place], [place] [address]ATQ [Catalytic activity/Vol]26 U/LNormal0-41ProMediFairfield Medical Center HospitalComment on above:Performed By: #### CMP, 68464-0, , CBCA #### [facility] ([id number]) [address] [place], [place] [address]Kepkvcltr [Mass/Vol]0.5 mg/dLNormal0.3-1.2PProMedica Defiance Regional HospitalComment on above:Performed By: #### XENIA, 57218-1, 79961-3, CBCA #### [facility] ([id number]) [address] [place], [place] [address]Mybiyiy [Mass/Vol]10.8 mg/dLHigh8.5-10.5PProMedica Defiance Regional HospitalComment on above:Performed By: #### XENIA, 98588-1, , CBCA #### [facility] ([id number]) [address] [place], [place] [address]Rolvhhho [Moles/Vol]109 mmol/VQoaski50-994FpiEifshvMadison HealthComment on above:Performed By: #### XENIA, 59476-5, , CBCA #### [facility] ([id number]) [address] [place], [place] [address]SZ2 [Moles/Vol]20 mmol/GAzr33-38NqsQemdpqProMedica Defiance Regional Hospital Comment on above:Performed By: #### XENIA, 31051-9, , CBCA #### [facility] ([id number]) [address] [place], [place] [address]Tucowjbcbp [Mass/Vol]1.00 mg/dLNormal0.40-1.00ProMadison HealthComment on above:Result Comment: METHOD TRACEABLE TO IDMS STANDARD Performed By: #### XENIA, 22138-0, , CBCA #### [facility] ([id number]) [address] [place], [place] [address]YLS/1.73 sq M.predicted among non-blacks MDRD (S/P/Bld) [Vol rate/Area]64 mL/min/{1.73_m2}Normal>59ProMadison HealthComment on above:Result Comment: Reported eGFR is based on the CKD-EPI 2020 equation that does not use a race coefficient.Performed By: #### XENIA, 25841-7, , CBCA #### [facility] ([id number]) [address] [place], [place] [address]Vszomvb [Mass/Vol]144 mg/oMHsdi55-23QekYsepkoKettering Health – Soin Medical Center Comment on above:Performed By: #### XENIA, 81669-6, 67164-4, CBCA #### [facility] ([id number]) [address] [place], [place] [address]Ombefszhy [Moles/Vol]3.9 mmol/LNormal3.5-5.0ProMadison HealthComment on above:Performed By: #### XENIA, 66265-1, , CBCA #### [facility] ([id number]) [address] [place], [place] [address]Mwhfraq [Mass/Vol]8.7 g/dLHigh6.0-8.0[facility] Comment on above:Performed By: #### XENIA, 18622-6, , CBCA #### [facility] ([id number]) [address] [place], [place] [address]Mxowch [Moles/Vol]140 mmol/AIaaslz495-538FyzVccskp [facility] HospitalComment on above:Performed By: #### XENIA, 30865-7, , CBCA #### [facility] ([id number]) [address] [place], [place] [address]Oqjs nitrogen [Mass/Vol]24 mg/dLHigh5-23ProMadison HealthComment on above:Performed By: #### XENIA, 78183-4, , CBCA #### [facility] ([id number]) [address] [place], [place] [address]Mrocyza Glucometer (BldC) [Mass/Vol]on 99-11-6828Fdrzmqs [Mass/Vol]138 mg/iAXcfj54-93ZdnUsysubMadison HealthGlucose [Mass/Vol]175 mg/mUDtis41-11FtvZsqbonMadison HealthMAGNESIUMon 80-81-3956Kxhihblin [Mass/Vol]2.6 mg/dLNormal1.8-2.6ProMadison HealthComment on above: Performed By: #### XENIA, 35319-2, 58975-8, CBCA #### [facility] ([id number]) [address] [place], [place] [address]BLVDXNFQSxx 66-22-4406Dalhyvrrb [Moles/Vol]3.9 mmol/LNormal 3.5-5.0ProMadison HealthComment on above:Performed By: #### XENIA, 09482- 0, , CBCA #### [facility] ([id number]) [address] [place], [place] [id number] CHEST 1 VWon 78-17-5219WU CHEST 1 VWXR CHEST 1 VW Clinical History: Pneumonia. Portable Upright chest: 04/28/2023 Comparison: 04/23/2023 Findings: A single portable view of the chest was obtained. There is strandy density in the lower lungs with interval improvement. No pneumothorax or definite pleural effusion is a. Mediastinal contours are stable IMPRESSION: Basilar opacities compatible with atelectasis. Finalized by Saurabh Anderson MD on 04/28/2023 9:57 AMNormalProMadison HealthBLOOD CULTUREon 92-81-1269Zewtalxu identified Aer cx Nom (Bld)CULTURE RESULTS NO GROWTH 5 DAYSNormalKettering Health – Soin Medical CenterBacteria identified Aer cx Nom (Bld)CULTURE RESULTS NO GROWTH 5 DAYSNormalProMadison HealthCBC AND AUTO DIFFon 04-27-2023 ABSOLUTE BASOPHIL0.2 X10E9/LNormal0.0-0.2[facility] Tuberculosis HospitalComment on above:Performed By: #### XENIA, 56027-8, , CBCA #### [facility] ([id number]) [address] [place], [place] [address]SBPSAFKL NEUTROPHIL3.9 X10E9/LNormal1.5-6.6ProMadison HealthComment on above:Performed By: #### CMP, 55228-7, , CBCA #### [facility] ([id number]) [address] [place], [place] [address]Wasmuxjif/100 WBC (Bld)2.9 %NormalKettering Health – Soin Medical Center Comment on above:Performed By: #### CMP, 04666-2, , CBCA #### [facility] ([id number]) [address] [place], [place] [address]Dsqladbmdqq (Bld) [#/Vol]0.1 10*3/uLNormal0.0-0.4ProMadison HealthComment on above:Performed By: #### CMP, 90138-2, , CBCA #### [facility] ([id number]) [address] [place], [place] [address]Kcsraoqrtjd/100 WBC (Bld)1.7 %NormalKettering Health – Soin Medical Center Comment on above:Performed By: #### CMP, 59048-3, , CBCA #### [facility] ([id number]) [address] [place], [place] [address]Abvtfiwnxhy distribution width (RBC) [Ratio]17.7 %High11.5-15.0 ProMedicWayne HealthCare Main CampusComment on above:Performed By: #### CMP, 95938-5, , CBCA #### [facility] ([id number]) [address] [place], [place] [address]Cfwlkthwvf (Bld) [Volume fraction]38.8 %Mxjpvn17-81OykLmlomyMadison HealthComment on above:Performed By: #### CMP, 81037-6, , CBCA #### [facility] ([id number]) [address] [place], [place] [address]Eqqwvkbjby (Bld) [Mass/Vol]12.7 g/rYWpflqo56.7-15.5Pro[facility] Tuberculosis HospitalComment on above:Performed By: #### CMP, 20631-2, , CBCA #### [facility] ([id number]) [address] [place], [place] [address]Hmduwflcuxw (Bld) [#/Vol]1.7 10*3/uLNormal1.0-3.5[facility] HospitalComment on above:Performed By: #### CMP, 00966-0, , CBCA #### [facility] ([id number]) [address] [place], [place] [address]Hxvdxsmldcu/100 WBC (Bld)26.3 %NormalProMadison Health Comment on above:Performed By: #### XENIA, 88599-0, , CBCA #### [facility] ([id number]) [address] [place], [place] [address]YYD (RBC) [Entitic mass]28.2 hzMjgboi09-41GoqLzpypmMadison HealthComment on above:Performed By: #### XENIA, 13364-0, , CBCA #### [facility] ([id number]) [address] [place], [place] [address]HXDV (RBC) [Mass/Vol]32.7 g/qZFmrtgt26-54UxgIsigbjMadison HealthComment on above:Performed By: #### CMP, 80859-5, , CBCA #### [facility] ([id number]) [address] [facility] [place], [place] [address]SUB (RBC) [Entitic vol]86 qLBodile64-966ThnUkgteg Baypark HospitalComment on above:Performed By: #### CMP, 07285-7, 14414-2, CBCA #### [facility] ([id number]) [address] [facility] [place], [place] [address]Hhnavbmzz (Bld) [#/Vol]0.7 10*3/uLNormal0-0.9ProMadison HealthComment on above:Performed By: #### CMP, 10958-6, 66259-1, CBCA #### [facility] ([id number]) [address] [place], [place] [address]Gycyszzcf/100 WBC (Bld)10.1 %NormalKettering Health – [facility] Comment on above:Performed By: #### CMP, 03580-6, 41736-2, CBCA #### [facility] ([id number]) [address] [place], [place] [address]Ruqluhvgcea/100 WBC (Bld)59.0 %NormalKettering Health – Soin Medical Center Comment on above:Performed By: #### CMP, 08024-8, 98350-1, CBCA #### [facility] ([id number]) [address] [place], [place] [address]Pfaczfpt mean volume (Bld) [Entitic vol]8.1 fLNormal7-12 ProMFisher-Titus Medical CenterComment on above:Performed By: #### XENIA, 42134-0, , CBCA #### [facility] ([id number]) [address] [place], [place] [address]Dhxfylohz (Bld) [#/Vol]364 10*3/uLXarlpt562-352NvwWcnxkt Baypark HospitalComment on above:Performed By: #### XENIA, 83873-5, , CBCA #### [facility] ([id number]) [address] [place], [place] [address]ZLW COUNT4.49 X10E12/LNormal3.80-5.20[facility] Comment on above:Performed By: #### CMP, 13526-7, , CBCA #### [facility] ([id number]) [address] [place], [place] [address]KJA (Bld) [#/Vol]6.6 10*3/uLNormal4.0-11.0[facility] Soin Medical CenterComment on above:Performed By: #### CMP, 46104-8, 06513-3, CBCA #### [facility] ([id number]) [address] [place], [place] [address]ZZESYHECWLIZA METABOLIC PANELon 96-06-6469Kmjsfkl [Mass/Vol]3.7 g/dLNormal3.2-5.3ProMedSouthview Medical Center HospitalComment on above:Performed By: #### XENIA, 21459-4, , CBCA #### [facility] ([id number]) [address] [place], [place] [address]MDK [Catalytic activity/Vol]74 U/MOeizar88-797XqrUpzaiiMadison HealthComment on above:Performed By: #### XENIA, 87100-9, , CBCA #### [facility] ([id number]) [address] [place], [place] [address]VHA [Catalytic activity/Vol]47 U/LHigh0-31ProMedJ.W. Ruby Memorial HospitalComment on above:Performed By: #### XENIA, 09147-1, , CBCA #### [facility] ([id number]) [address] [place], [place] [address]Njxag gap [Moles/Vol]12 mmol/LNormal5-15ProMadison HealthComment on above:Performed By: #### XENIA, 39854-8, , CBCA #### [facility] ([id number]) [address] [place], [place] [address]BLP [Catalytic activity/Vol]29 U/LNormal0-41ProMadison HealthComment on above:Performed By: #### XENIA, 48743-6, , CBCA #### [facility] ([id number]) [address] [place], [place] [address]Kimqneskq [Mass/Vol]0.6 mg/dLNormal0.3-1.2PFirelands Regional Medical Center HospitalComment on above:Performed By: #### CMP, 21353-2, , CBCA #### [facility] ([id number]) [address] [place], [place] [address]Jzmgpzs [Mass/Vol]10.3 mg/dLNormal8.5-10.5PFirelands Regional Medical Center HospitalComment on above:Performed By: #### XENIA, 95454-8, , CBCA #### [facility] ([id number]) [address] [place], [place] [address]Cfbmnseo [Moles/Vol]108 mmol/ULukepc05-952TcaBrfpojMadison HealthComment on above:Performed By: #### XENIA, 75765-9, 62072-9, CBCA #### [facility] ([id number]) [address] [place], [place] [address]QR5 [Moles/Vol]21 mmol/QVlo43-19MlsBxlmtiProMedica Defiance [facility] Hospital Comment on above:Performed By: #### XENIA, 38811-4, , CBCA #### [facility] ([id number]) [address] [place], [place] [address]Qyvvujbwws [Mass/Vol]1.03 mg/dLHigh0.40-1.00ProMadison HealthComment on above:Result Comment: METHOD TRACEABLE TO IDMS STANDARD Performed By: #### XENIA, 24212-6, , CBCA #### [facility] ([id number]) [address] [place], [place] [address]RXJ/1.73 sq M.predicted among non-blacks MDRD (S/P/Bld) [Vol rate/Area]62 mL/min/{1.73_m2}Normal>59ProMadison HealthComment on above:Result Comment: Reported eGFR is based on the CKD-EPI 1 equation that does not use a race coefficient.Performed By: #### XENIA, 77765-8, , CBCA #### [facility] ([id number]) [address] [place], [place] [address]Bwyoeyb [Mass/Vol]121 mg/nZKvcn86-00YcdNwhskzMadison Health Comment on above:Performed By: #### XENIA, 35480-2, , CBCA #### [facility] ([id number]) [address] [place], [place] [address]Ffqssollk [Moles/Vol]3.3 mmol/LLow3.5-5.0ProMedica Baypark HospitalComment on above:Performed By: #### XENIA, 65821-6, , CBCA #### [facility] ([id number]) [address] [place], [place] [address]Xagdhir [Mass/Vol]8.3 g/dLHigh6.0-8.0[facility] Comment on above:Performed By: #### XENIA, 49419-8, , CBCA #### [facility] ([id number]) [address] [place], [place] [address]Lwytkx [Moles/Vol]141 mmol/MPgttaq080-157MczVfjscd Baypark HospitalComment on above:Performed By: #### XENIA, 64332-0, , CBCA #### [facility] ([id number]) [address] [place], [place] [address]Yoza nitrogen [Mass/Vol]17 mg/dLNormal5-23ProMadison HealthComment on above:Performed By: #### XENIA, 14819-7, , CBCA #### [facility] ([id number]) [address] [place], [place] [address]Xwcnsid Glucometer (BldC) [Mass/Vol]on 34-56-5143Bahpeax [Mass/Vol]127 mg/mGRekl09-38DnyYmahybKettering Health – Soin Medical CenterGlucose [Mass/Vol]119 mg/lHPizn17-44LntTxwaxuMadison HealthGlucose [Mass/Vol]132 mg/cYQaxk59-13 ProMFisher-Titus Medical CenterGlucose [Mass/Vol]119 mg/iEErbw26-88OlrRyozsyKettering Health – Soin Medical CenterMAGNESIUMon 46-54-8695Ikoyujfhf [Mass/Vol]2.5 mg/dLNormal1.8-2.6 [facility] Medical CenterComment on above:Performed By: #### XENIA, 29173-3, , CBCA #### [facility] ([id number]) [address] [place], [place] [address]VUKMBGFNIkb 26-35-5734Qnpjafxrj [Moles/Vol]3.7 mmol/LNormal 3.5-5.0ProMadison HealthComment on above:Performed By: #### XENIA, 32386- 0, , CBCA #### [facility] ([id number]) [address] [facility] [place], [place] [address]MKY AND AUTO DIFFon 43-33-6140MLCQMFIY BASOPHIL0.1 X10E9/LNormal 0.0-0.2Pro[facility] Tuberculosis HospitalComment on above:Performed By: #### XENIA, 55275- 0, , CBCA #### [facility] ([id number]) [address] [place], [place] [address]COOTJTUV NEUTROPHIL4.2 X10E9/LNormal1.5-6.6ProMadison HealthComment on above:Performed By: #### XENIA, 78788-5, , CBCA #### [facility] ([id number]) [address] [place], [place] [address]Iyxvsmgtu/100 WBC (Bld)1.1 %NormalKettering Health – [facility]in Medical Center Comment on above:Performed By: #### XENIA, 35035-0, , CBCA #### [facility] ([id number]) [address] [facility] [facility] [place], [place] [address]Kfschiaeoct (Bld) [#/Vol]0.0 10*3/uLNormal0.0-0.4ProMadison HealthComment on above:Performed By: #### XENIA, 36035-8, , CBCA #### [facility] ([id number]) [address] [place], [place] [address]Fyflgjsryer/100 WBC (Bld)0.4 %NormalKettering Health – [facility]in Medical Center Comment on above:Performed By: #### XENIA, 51625-6, , CBCA #### [facility] ([id number]) [address] [place], [place] [address]Zhvdjvwmmdf distribution width (RBC) [Ratio]17.3 %High11.5-15.0 [facility] HospitalComment on above:Performed By: #### XENIA, 20675-3, , CBCA #### [facility] ([id number]) [address] [place], [place] [address]Xqcvskhqys (Bld) [Volume fraction]32.3 %Drz77-58AxtOyyazrMadison HealthComment on above:Performed By: #### XENIA, 19685-1, , CBCA #### [facility] ([id number]) [address] [place], [place] [address]Qlnkgsicaf (Bld) [Mass/Vol]10.2 g/dLLow11.7-15.5PProMedica Defiance Regional HospitalComment on above:Performed By: #### XENIA, 67052-7, , CBCA #### [facility] ([id number]) [address] [place], [place] [address]Tduwywnycid (Bld) [#/Vol]1.7 10*3/uLNormal1.0-3.5PProMedica Defiance Regional HospitalComment on above:Performed By: #### XENIA, 80760-1, , CBCA #### [facility] ([id number]) [address] [place], [place] [address]Hxlqvslwihr/100 WBC (Bld)25.7 %NormalProMadison Health Comment on above:Performed By: #### XENIA, 26738-8, , CBCA #### [facility] ([id number]) [address] [place], [place] [address]GGK (RBC) [Entitic mass]27.3 zeEzanwk89-66JxbQyroayMadison HealthComment on above:Performed By: #### CMP, 76381-6, , CBCA #### [facility] ([id number]) [address] [place], [place] [address]PLPO (RBC) [Mass/Vol]31.6 g/oSAzu59-31IzfUievrl [facility] Comment on above:Performed By: #### CMP, 70903-5, 94733-8, CBCA #### [facility] ([id number]) [address] [place], [place] [address]MWS (RBC) [Entitic vol]86 lIIdrsea70-474EulTawcpg [facility] HospitalComment on above:Performed By: #### CMP, 03287-1, 69982-0, CBCA #### [facility] ([id number]) [address] [place], [place] [address]Djrlwvsbj (Bld) [#/Vol]0.6 10*3/uLNormal0-0.9[facility] Medical CenterComment on above:Performed By: #### CMP, 49498-3, 54878-5, CBCA #### [facility] ([id number]) [address] [place], [place] [address]Eceswljmv/100 WBC (Bld)9.2 %[facility] Comment on above:Performed By: #### CMP, 97053-8, 03504-3, CBCA #### [facility] ([id number]) [address] [place], [place] [address]Lrwjicxawrj/100 WBC (Bld)63.6 %[facility] Comment on above:Performed By: #### CMP, 28952-9, , CBCA #### [facility] ([id number]) [address] [place], [place] [address]Yqkmaiah mean volume (Bld) [Entitic vol]8.4 fLNormal7-12 ProMedicWayne HealthCare Main CampusComment on above:Performed By: #### CMP, 01985-0, 33708-9, CBCA #### [facility] ([id number]) [address] [place], [place] [address]Ndgwqgkvp (Bld) [#/Vol]334 10*3/pJKoxiyq835-080FajMkuewz [facility] HospitalComment on above:Performed By: #### CMP, 10232-8, 78731-4, CBCA #### [facility] ([id number]) [address] [facility] [place], [place] [address]UHE COUNT3.74 X10E12/LLow3.80-5.20ProMadison Health Comment on above:Performed By: #### XENIA, 91056-9, 84536-7, CBCA #### [facility] ([id number]) [address] [place], [place] [address]AAV (Bld) [#/Vol]6.7 10*3/uLNormal4.0-11.0ProMadison HealthComment on above:Performed By: #### XENIA, 48549-3, , CBCA #### [facility] ([id number]) [address] [place], [place] [address]JHPZALMQVGMCG METABOLIC PANELon 91-27-5984Vuxpeps [Mass/Vol]2.9 g/dLLow3.2-5.3ProMedJ.W. Ruby Memorial HospitalComment on above:Performed By: #### XENIA, 96028-4, , CBCA #### [facility] ([id number]) [address] [place], [place] [address]IRB [Catalytic activity/Vol]55 U/JXyrilt18-528CiiZfomoeMadison HealthComment on above:Performed By: #### XENIA, 36802-0, 11157-7, CBCA #### [facility] ([id number]) [address] [place], [place] [address]TQR [Catalytic activity/Vol]33 U/LHigh0-31PProMedica Defiance Regional HospitalComment on above:Performed By: #### CMP, 71531-3, 39890-1, CBCA #### [facility] ([id number]) [address] [place], [place] [address]Alrgk gap [Moles/Vol]5 mmol/LNormal5-15ProMadison HealthComment on above:Performed By: #### CMP, 03435-2, 92311-3, CBCA #### [facility] ([id number]) [address] [place], [place] [address]GWY [Catalytic activity/Vol]21 U/LNormal0-41ProMadison HealthComment on above:Performed By: #### XENIA, 74521-4, , CBCA #### [facility] ([id number]) [address] [place], [place] [address]Klskqoctg [Mass/Vol]0.6 mg/dLNormal0.3-1.2PProMedica Defiance Regional HospitalComment on above:Performed By: #### XENIA, 34258-8, 85677-6, CBCA #### [facility] ([id number]) [address] [place], [place] [address]Axladfd [Mass/Vol]9.3 mg/dLNormal8.5-10.5PProMedica Defiance Regional HospitalComment on above:Performed By: #### XENIA, 19818-4, , CBCA #### [facility] ([id number]) [address] [place], [place] [address]Lisbjvkh [Moles/Vol]117 mmol/WMuvc24-014WmbBfcvauMadison HealthComment on above:Performed By: #### XENIA, 25277-6, , CBCA #### [facility] ([id number]) [address] [place], [place] [address]IW4 [Moles/Vol]20 mmol/QObn27-63AsmEuzjlkProMedica Defiance Regional Hospital Comment on above:Performed By: #### XENIA, 57024-3, , CBCA #### [facility] ([id number]) [address] [place], [place] [address]Qjsdnkbpal [Mass/Vol]0.59 mg/dLNormal0.40-1.00ProMadison HealthComment on above:Result Comment: METHOD TRACEABLE TO IDMS STANDARD Performed By: #### XENIA, 15851-9, , CBCA #### [facility] ([id number]) [address] [place], [place] [address]zPHV (CKD-EPI) NON-RACE DEPENDENT>90Normal>59ProMadison HealthComment on above:Result Comment: Reported eGFR is based on the CKD-EPI 2020 equation that does not use a race coefficient.Performed By: #### XENIA, 98661-4, , CBCA #### [facility] ([id number]) [address] [place], [place] [address]Camjotm [Mass/Vol]95 mg/mGEmljzi09-98BbmEqwldbMadison Health Comment on above:Performed By: #### XENIA, 83972-0, , CBCA #### [facility] ([id number]) [address] [place], [place] [address]Cqgmhoqwj [Moles/Vol]3.4 mmol/LLow3.5-5.0ProMadison HealthComment on above:Performed By: #### XENIA, 85440-6, , CBCA #### [facility] ([id number]) [address] [place], [place] [address]Hahpusx [Mass/Vol]6.6 g/dLNormal6.0-8.0[facility] Medical CenterComment on above:Performed By: #### XENIA, 72012-0, , CBCA #### [facility] ([id number]) [address] [place], [place] [address]Qcqncc [Moles/Vol]142 mmol/AWofpjz045-348TdlCtrhsq [facility] HospitalComment on above:Performed By: #### XENIA, 22234-5, , CBCA #### [facility] ([id number]) [address] [place], [place] [address]Cmss nitrogen [Mass/Vol]12 mg/dLNormal5-23ProMadison HealthComment on above:Performed By: #### XENIA, 23363-2, , CBCA #### [facility] ([id number]) [address] [place], [place] [address]Ciabija Glucometer (BldC) [Mass/Vol]on 04-05-3870Hgksbze [Mass/Vol]111 mg/pFDwmf83-22LocAtfpucMadison HealthGlucose [Mass/Vol]118 mg/xUBnas71-39HyzNtnlrd [facility] HospitalGlucose [Mass/Vol]225 mg/vZXyad78-89 ProMedicWayne HealthCare Main CampusGlucose [Mass/Vol]105 mg/qRAghd51-10NupOdsktdMadison HealthMAGNESIUMon 88-53-1740Tlmaobnyf [Mass/Vol]2.2 mg/dLNormal1.8-2.6 ProMFisher-Titus Medical CenterComment on above:Performed By: #### XENIA, 11826-8, 99188-1, CBCA #### [facility] ([id number]) [address] [place], [place] [address]HTXDJZMDPyk 43-48-2998Hrezzpcog [Moles/Vol]4.0 mmol/LNormal 3.5-5.0ProMadison HealthComment on above:Performed By: #### XENIA, 54045- 0, , CBCA #### [facility] ([id number]) [address] [place], [place] [address]JIJOZ METABOLIC PANLon 40-39-8413Lcpfg gap [Moles/Vol]6 mmol/L Normal5-15ProMadison HealthComment on above:Performed By: #### XENIA, 98781-3, , CBCA #### [facility] ([id number]) [address] [place], [place] [address]Nmwzlsh [Mass/Vol]9.6 mg/dLNormal8.5-10.5Pro[facility] HospitalComment on above:Performed By: #### XENIA, 32233-2, , CBCA #### [facility] ([id number]) [address] [place], [place] [address]Wuyuqiwl [Moles/Vol]115 mmol/PDzon08-844KtaLoralhMadison HealthComment on above:Performed By: #### XENIA, 55031-3, , CBCA #### [facility] ([id number]) [address] [place], [place] [address]XO6 [Moles/Vol]18 mmol/GLtq90-59GpyXqvlpnProMedica Defiance Regional Hospital Comment on above:Performed By: #### XENIA, 81075-3, , CBCA #### [facility] ([id number]) [address] [facility] [place], [place] [address]Lymylzpowf [Mass/Vol]0.56 mg/dLNormal0.40-1.00[facility] Medical CenterComment on above:Result Comment: METHOD TRACEABLE TO IDMS STANDARD Performed By: #### XENIA, 54933-7, 43347-1, CBCA #### [facility] ([id number]) [address] [place], [place] [address]zOPW (CKD-EPI) NON-RACE DEPENDENT>90Normal>59ProMadison HealthComment on above:Result Comment: Reported eGFR is based on the CKD-EPI 2020 equation that does not use a race coefficient.Performed By: #### XENIA, 50795-0, , CBCA #### [facility] ([id number]) [address] [place], [place] [address]Vkjpwdk [Mass/Vol]86 mg/kQEzeyss38-13FrnPvcrfuKettering Health – Soin Medical Center Comment on above:Performed By: #### XENIA, 75315-3, , CBCA #### [facility] ([id number]) [address] [place], [place] [address]Uyciwlxoq [Moles/Vol]3.5 mmol/LNormal3.5-5.0[facility] Medical CenterComment on above:Performed By: #### XENIA, 37418-0, 52938-5, CBCA #### [facility] ([id number]) [address] [place], [place] [address]Ocpvyh [Moles/Vol]139 mmol/DYgbvbs417-103TeeUjcjrp [facility] HospitalComment on above:Performed By: #### XENIA, 01191-4, 66638-3, CBCA #### [facility] ([id number]) [address] [place], [place] [address]Wqua nitrogen [Mass/Vol]14 mg/dLNormal5-23ProMadison HealthComment on above:Performed By: #### XENIA, 23376-6, 48808-1, CBCA #### [facility] ([id number]) [address] [place], [place] [address]ZIZKJEPO BLOOD COUNTon 14-13-1649Jbowqeirron distribution width (RBC) [Ratio]18.1 %High11.5-15.0ProMadison HealthComment on above: Performed By: #### XENIA, 11568-1, , CBCA #### [facility] ([id number]) [address] [place], [place] [address]Heankcpalt (Bld) [Volume fraction]32.2 %Fni89-88BucVeyguoMadison HealthComment on above:Performed By: #### XENIA, 80025-4, , CBCA #### [facility] ([id number]) [address] [place], [place] [address]Rpcvpddyxc (Bld) [Mass/Vol]10.1 g/dLLow11.7-15.5POverton Brooks VA Medical Centerica [facility] Tuberculosis HospitalComment on above:Performed By: #### XENIA, 58111-9, , CBCA #### [facility] ([id number]) [address] [place], [place] [address]AOC (RBC) [Entitic mass]27.4 dkTxioqh46-67QstTpmiknMadison HealthComment on above:Performed By: #### XENIA, 10208-9, 74534-5, CBCA #### [facility] ([id number]) [address] [place], [place] [address]QOWC (RBC) [Mass/Vol]31.5 g/kEGpb65-34OlaLwajzlMadison Health Comment on above:Performed By: #### XENIA, 49609-8, 37083-5, CBCA #### [facility] ([id number]) [address] [place], [place] [address]MGB (RBC) [Entitic vol]87 kGEqvjnc07-282OpbPpyzfb [facility] HospitalComment on above:Performed By: #### XENIA, 23915-6, 03109-3, CBCA #### [facility] ([id number]) [address] [place], [place] [address]Hnatmigz mean volume (Bld) [Entitic vol]8.7 fLNormal7-12 ProMFisher-Titus Medical CenterComment on above:Performed By: #### XENIA, 30964-0, 03308-6, CBCA #### [facility] ([id number]) [address] [place], [place] [address]Ngnieguxp (Bld) [#/Vol]343 10*3/oBQxutka350-476VsuHscjnz [facility] HospitalComment on above:Performed By: #### XENIA, 35025-7, , CBCA #### [facility] ([id number]) [address] [place], [place] [address]KBR COUNT3.70 X10E12/LLow3.80-5.20[facility] Comment on above:Performed By: #### XENIA, 66390-9, , CBCA #### [facility] ([id number]) [address] [place], [place] [address]NFC (Bld) [#/Vol]7.6 10*3/uLNormal4.0-11.0[facility] Medical CenterComment on above:Performed By: #### XENIA, 18046-3, , CBCA #### [facility] ([id number]) [address] [place], [place] [address]Kfkmbkk Glucometer (BldC) [Mass/Vol]on 26-36-1669Ogfdvbj [Mass/Vol]160 mg/jHOdyp75-13NglMvudzrKettering Health – Soin Medical CenterGlucose [Mass/Vol]126 mg/pGGcvg05-65KwtOacyguKettering Health – Soin Medical CenterGlucose [Mass/Vol]128 mg/fHUaqu41-81 ProMFisher-Titus Medical CenterGlucose [Mass/Vol]158 mg/sKJoxa40-81XwbOmjdedMadison HealthGlucose [Mass/Vol]82 mg/kURpoxgu36-91QloCvcuvtMadison HealthGlucose [Mass/Vol]93 mg/wAFjxikw48-42LczWmgwygMadison HealthMAGNESIUMon 04-25-2023 Magnesium [Mass/Vol]2.1 mg/dLNormal1.8-2.6ProMadison HealthComment on above:Performed By: #### XENIA, 62491-7, 07312-5, CBCA #### [facility] ([id number]) [address] [place], [place] [id number] 67-56-6591Gisyojehu [Mass/Vol]3.2 mg/dLNormal 2.4-4.9ProMadison HealthComment on above:Performed By: #### XENIA, 53317- 0, , CBCA #### [facility] ([id number]) [address] [place], [place] [id number] 72-76-5584Gsukbmoxr [Moles/Vol]3.7 mmol/LNormal 3.5-5.0ProMadison HealthComment on above:Performed By: #### XENIA, 21101- 0, , CBCA #### [facility] ([id number]) [address] [place], [place] [id number] trough [Mass/Vol]on 23-14-8729IIKBXSWMAK LYFYTV07.7 ug/mLHigh5.0-20.0[facility] Soin Medical CenterComment on above:Performed By: #### XENIA, 64688-6, 16035-7, CBCA #### [facility] ([id number]) [address] [place], [place] [id number] [Mass/Vol]on 70-35-9353RZLDWMMSVXI<0.5Low1.0-13.0 ProMFisher-Titus Medical CenterComment on above:Result Comment: NOTE This test was developed and its performance characteristics determined by [facility] [place] ([facility]). It has not been cleared or approved by the FDA. -[facility] is regulated under CLIA as qualified to perform high-complexity testing. This test is used for clinical purposes. It should not be regarded as investigational or for research. Test Performed By: [place] [address] Unix Manager: Davian Holloway III, M.D. CLIA #[id number] By: #### XENIA, 44436-2, , CBCA #### [facility] ([id number]) [address] [facility] [place], [place] [address]DCYNL METABOLIC PANLon 31-60-9287Fyfqa gap [Moles/Vol]9 mmol/L Normal5-15ProMadison HealthComment on above:Performed By: #### XENIA, 14784-4, , CBCA #### [facility] ([id number]) [address] [place], [place] [id number] [Mass/Vol]9.9 mg/dLNormal8.5-10.5PProMedica Defiance Regional HospitalComment on above:Performed By: #### XENIA, 12750-2, , CBCA #### [facility] ([id number]) [address] [place], [place] [address]Avffioel [Moles/Vol]112 mmol/ZIiiq83-765KwdAxokqbMadison HealthComment on above:Performed By: #### XENIA, 87235-4, , CBCA #### [facility] ([id number]) [address] [facility] [place], [place] [address]BN2 [Moles/Vol]17 mmol/CSxl02-02LvqDepoktProMedica Defiance Regional Hospital Comment on above:Performed By: #### XENIA, 66738-6, 23590-4, CBCA #### [facility] ([id number]) [address] [place], [place] [address]Dfkwydgllv [Mass/Vol]0.68 mg/dLNormal0.40-1.00ProMadison HealthComment on above:Result Comment: METHOD TRACEABLE TO IDMS STANDARD Performed By: #### XENIA, 15684-4, 91781-8, CBCA #### [facility] ([id number]) [address] [place], [place] [address]wMVZ (CKD-EPI) NON-RACE DEPENDENT>90Normal>59ProMadison HealthComment on above:Result Comment: Reported eGFR is based on the CKD-EPI 2020 equation that does not use a race coefficient.Performed By: #### XENIA, 26221-2, , CBCA #### [facility] ([id number]) [address] [place], [place] [address]Gtwbpav [Mass/Vol]134 mg/vWMnhn65-11SvpRgmsulKettering Health – Soin Medical Center Comment on above:Performed By: #### XENIA, 80049-1, 60894-1, CBCA #### [facility] ([id number]) [address] [place], [place] [address]Gujauqbif [Moles/Vol]4.2 mmol/LNormal3.5-5.0ProMadison HealthComment on above:Performed By: #### XENIA, 34712-4, , CBCA #### [facility] ([id number]) [address] [place], [place] [address]Oritgq [Moles/Vol]138 mmol/YCdvuyl007-190QchHvqivg Baypark HospitalComment on above:Performed By: #### XENIA, 79874-5, , CBCA #### [facility] ([id number]) [address] [place], [place] [address]Wqch nitrogen [Mass/Vol]15 mg/dLNormal5-23ProMadison HealthComment on above:Performed By: #### XENIA, 18638-0, , CBCA #### [facility] ([id number]) [address] [place], [place] [address]TGD AND AUTO DIFFon 62-59-5607UOQWLTNB BASOPHIL0.1 X10E9/LNormal 0.0-0.2[facility] Tuberculosis HospitalComment on above:Performed By: #### CMP, 68351- 0, , CBCA #### [facility] ([id number]) [address] [facility] [place], [place] [address]FCVWCTNF NEUTROPHIL5.1 X10E9/LNormal1.5-6.6ProMadison HealthComment on above:Performed By: #### CMP, 22654-7, , CBCA #### [facility] ([id number]) [address] [facility] [place], [place] [address]Hefsqpxqc/100 WBC (Bld)1.0 %NormalKettering [facility] Comment on above:Performed By: #### XENIA, 44803-1, , CBCA #### [facility] ([id number]) [address] [facility] [place], [place] [address]Lgfrrgkzeuy (Bld) [#/Vol]0.0 10*3/uLNormal0.0-0.4ProMadison HealthComment on above:Performed By: #### CMP, 04044-2, , CBCA #### [facility] ([id number]) [address] [facility] [place], [place] [address]Vzgcglvdjqe/100 WBC (Bld)0.5 %NormalKettering Health – [facility] Medical Center Comment on above:Performed By: #### XENIA, 22657-6, , CBCA #### [facility] ([id number]) [address] [place], [place] [address]Mbcwnvlvwgw distribution width (RBC) [Ratio]17.4 %High11.5-15.0 [facility] HospitalComment on above:Performed By: #### CMP, 80248-0, , CBCA #### [facility] ([id number]) [address] [facility] [place], [place] [address]Grvnqnczkz (Bld) [Volume fraction]31.9 %Hqt15-49MshRotgmnMadison HealthComment on above:Performed By: #### CMP, 37069-4, , CBCA #### [facility] ([id number]) [address] [place], [place] [address]Vphvevifjv (Bld) [Mass/Vol]9.8 g/dLLow11.7-15.5PProMedica Defiance Regional HospitalComment on above:Performed By: #### CMP, 26653-4, 29518-8, CBCA #### [facility] ([id number]) [address] [place], [place] [address]Pchcljjxuee (Bld) [#/Vol]2.5 10*3/uLNormal1.0-3.5PProMedica Defiance Regional HospitalComment on above:Performed By: #### CMP, 95110-9, , CBCA #### [facility] ([id number]) [address] [place], [place] [address]Hxookbodtwm/100 WBC (Bld)28.0 %NormalKettering Health – [facility] Medical Center Comment on above:Performed By: #### CMP, 71407-8, , CBCA #### [facility] ([id number]) [address] [place], [place] [address]ZGT (RBC) [Entitic mass]27.0 qtLqvtgw71-49KqzMpvgldKettering Health – Soin Medical CenterComment on above:Performed By: #### CMP, 99774-3, , CBCA #### [facility] ([id number]) [address] [place], [place] [address]PNFE (RBC) [Mass/Vol]30.8 g/vWPcd29-97IlhSrnnguKettering Health – Soin Medical Center Comment on above:Performed By: #### CMP, 53721-5, , CBCA #### [facility] ([id number]) [address] [place], [place] [address]ERZ (RBC) [Entitic vol]88 yALynvhi24-767NguCtinin [facility] HospitalComment on above:Performed By: #### CMP, 57539-3, 27611-7, CBCA #### [facility] ([id number]) [address] [place], [place] [address]Zkssdtrvb (Bld) [#/Vol]1.1 10*3/uLHigh0-0.9[facility] Medical CenterComment on above:Performed By: #### CMP, 91006-2, 42841-7, CBCA #### [facility] ([id number]) [address] [place], [place] [address]Xgxuxkjze/100 WBC (Bld)12.1 %NormalKettering Health – [facility] Medical Center Comment on above:Performed By: #### CMP, 00817-4, 55275-6, CBCA #### [facility] ([id number]) [address] [place], [place] [address]Nakedczhjdk/100 WBC (Bld)58.4 %[facility] Comment on above:Performed By: #### CMP, 27784-2, 70521-4, CBCA #### [facility] ([id number]) [address] [place], [place] [address]Bifpucde mean volume (Bld) [Entitic vol]7.8 fLNormal7-12 [facility] Medical CenterComment on above:Performed By: #### CMP, 28499-4, , CBCA #### [facility] ([id number]) [address] [place], [place] [address]Nczhjfvqt (Bld) [#/Vol]322 10*3/eQTxifkd108-460WrzZngorn [facility] HospitalComment on above:Performed By: #### CMP, 53985-1, , CBCA #### [facility] ([id number]) [address] [place], [place] [address]YYR COUNT3.64 X10E12/LLow3.80-5.20[facility] Comment on above:Performed By: #### CMP, 73233-3, 42317-5, CBCA #### [facility] ([id number]) [address] [place], [place] [address]FFM (Bld) [#/Vol]8.8 10*3/uLNormal4.0-11.0ProAdena Health System HospitalComment on above:Performed By: #### XENIA, 44327-7, , CBCA #### [facility] ([id number]) [address] [place], [place] [address]KOAHDWXIJMMQH METABOLIC PANELon 45-90-7940Zapvfxu [Mass/Vol]2.9 g/dLLow3.2-5.3ProMedSouthview Medical Center HospitalComment on above:Performed By: #### XENIA, 48506-1, , CBCA #### [facility] ([id number]) [address] [place], [place] [address]IFO [Catalytic activity/Vol]52 U/CPmunqb75-274WtpGzjdwdMadison HealthComment on above:Performed By: #### XENIA, 87887-6, , CBCA #### [facility] ([id number]) [address] [place], [place] [address]YOP [Catalytic activity/Vol]21 U/LNormal0-31PProMedica Defiance Regional HospitalComment on above:Performed By: #### XENIA, 67163-0, , CBCA #### [facility] ([id number]) [address] [place], [place] [address]Srsog gap [Moles/Vol]8 mmol/LNormal5-15ProMadison HealthComment on above:Performed By: #### XENIA, 06660-0, , CBCA #### [facility] ([id number]) [address] [place], [place] [address]XLQ [Catalytic activity/Vol]22 U/LNormal0-41ProAdena Health System HospitalComment on above:Performed By: #### XENIA, 36140-1, , CBCA #### [facility] ([id number]) [address] [place], [place] [address]Dzwgmqgav [Mass/Vol]0.8 mg/dLNormal0.3-1.2PFirelands Regional Medical Center HospitalComment on above:Performed By: #### CMP, 19008-4, , CBCA #### [facility] ([id number]) [address] [place], [place] [address]Hffijln [Mass/Vol]9.4 mg/dLNormal8.5-10.5PProMedica Defiance Regional HospitalComment on above:Performed By: #### CMP, 13280-9, , CBCA #### [facility] ([id number]) [address] [place], [place] [address]Zbzthnoj [Moles/Vol]117 mmol/LFvke42-377AjxJkspxoMadison HealthComment on above:Performed By: #### XENIA, 64412-2, , CBCA #### [facility] ([id number]) [address] [place], [place] [address]DA1 [Moles/Vol]18 mmol/NQpj95-95ZwrBivmcbProMedica Defiance Regional Hospital Comment on above:Performed By: #### XENIA, 23259-3, , CBCA #### [facility] ([id number]) [address] [place], [place] [address]Pjwfosqhfk [Mass/Vol]0.59 mg/dLNormal0.40-1.00ProMadison HealthComment on above:Result Comment: METHOD TRACEABLE TO IDMS STANDARD Performed By: #### XNEIA, 15213-0, , CBCA #### [facility] ([id number]) [address] [place], [place] [address]Aqvuxyx [Mass/Vol]90 mg/pLItcdyu66-41WhfPkbprtKettering Health – Soin Medical Center Comment on above:Performed By: #### [facility], 46147-0, , CBCA #### [facility] ([id number]) [address] [place], [place] [address]Jyyvvaanr [Moles/Vol]3.6 mmol/LNormal3.5-5.0ProMadison HealthComment on above:Performed By: #### XENIA, 47695-4, , CBCA #### [facility] ([id number]) [address] [place], [place] [address]Kqwiajz [Mass/Vol]6.9 g/dLNormal6.0-8.0ProMadison HealthComment on above:Performed By: #### XENIA, 36100-7, , CBCA #### [facility] ([id number]) [address] [place], [place] [address]Mohqns [Moles/Vol]143 mmol/HThcqrv125-310MyqNignkr [facility] HospitalComment on above:Performed By: #### XENIA, 52945-3, , CBCA #### [facility] ([id number]) [address] [place], [place] [address]Ldeouin.ionized (Bld) [Moles/Vol]on 52-62-4743SFYAWGYM ICA5.5 mg/dLHigh4.5-5.3ProMedJ.W. Ruby Memorial HospitalComment on above:Performed By: #### XENIA, 45470-1, , CBCA #### [facility] ([id number]) [address] [place], [place] [address]Xzdkhxe Glucometer (BldC) [Mass/Vol]on 25-18-2253Mijfffk [Mass/Vol]87 mg/dFTmymyv36-23WfhVrtrkyMadison HealthGlucose [Mass/Vol]82 mg/oUJkjcub28-36GnsGmhuzpMadison HealthGlucose [Mass/Vol]90 mg/vZKecyze12-64 [facility] HospitalMAGNESIUMon 41-89-2286Rwetofzmf [Mass/Vol]2.0 mg/dL Normal1.8-2.6ProMadison HealthComment on above:Performed By: #### XENIA, 22311-7, , CBCA #### [facility] ([id number]) [address] [place], [place] [address]ZUXNAWBDANql 62-09-7719Wypudrtys [Mass/Vol]3.4 mg/dLNormal 2.4-4.9ProMedica [facility] HospitalComment on above:Performed By: #### XENIA, 27969- 0, , CBCA #### [facility] ([id number]) [address] [place], [place] [address]TMHTEJMMOtm 83-00-5130Sigoetdpa [Moles/Vol]3.5 mmol/LNormal 3.5-5.0ProAdena Health System HospitalComment on above:Performed By: #### XENIA, 00250- 0, , CBCA #### [facility] ([id number]) [address] [place], [place] [address]Vgzpeqmsl [Moles/Vol]3.7 mmol/LNormal3.5-5.0ProAdena Health System HospitalComment on above:Performed By: #### XENIA, 75057-8, , CBCA #### [facility] ([id number]) [address] [place], [place] [address]CAARUOML BLOOD GASon 08-86-2862LYIOW'S TESTPassNormalProAdena Health System HospitalComment on above:Performed By: #### ABG ####[facility] ([id number])[address] [place], [place] [address]KVTC,DEFICIT4.0 MMOL/LHigh 0.0-2.0ProAdena Health System HospitalComment on above:Performed By: #### ABG ####[facility] ([id number])[address] [place], [place] [address]Rkpy gyyecvjlogq19.6 [degF]Lfakqj90.0ProAdena Health System HospitalComment on above: Performed By: #### ABG ####[facility] ([id number])[address] [place], [place] [address]TYA2 (Bld) [Moles/Vol]21.0 mmol/XDhk18-77SvsSonbmj [facility] HospitalComment on above:Performed By: #### ABG ####[facility] ([id number])[address] [place], [place] [address]FJLH. O2 CONC.40 %NormalProMedica Baypark HospitalComment on above:Performed By: #### ABG ####[facility] ([id number])[address] [place], [place] [address]Cadmzh (Bld) [Partial pressure]76 mm[Hg]Asr60-500ZqeJucxhaMadison HealthComment on above:Performed By: #### ABG ####[facility] ([id number])[address] [place], [place] [address]Xdytwv saturation in Blood95.0 %Normal>90ProMadison Health Comment on above:Performed By: #### ABG ####[facility] ([id number])[address] [place] [address]CYXDTR SOURCEVentNormAdena Pike Medical CenterComment on above:Performed By: #### ABG ####[facility] ([id number])[address] [place] [address]ECP437.0 HRIJOdtiov15-39 [facility] HospitalComment on above:Performed By: #### ABG ####[facility] ([id number])[address] [place], [place] [address]qJ (Bld)7.362 [pH]Normal7.350-7.450ProMadison HealthComment on above:Performed By: #### ABG ####[facility] ([id number])[address] [place] [address]XUIVOJ SITERBrachNormAdena Pike Medical CenterComment on above:Performed By: #### ABG ####[facility] ([id number])[address] [place] [address]FQNDBH TYPEARTERIALNormalKettering Health – Soin Medical CenterComment on above:Performed By: #### ABG ####[facility] ([id number])[address] [place] [address]ZPJIC CULTUREon 44-71-8078Xbynyhql identified Aer cx Nom (Bld)CULTURE RESULTS NO GROWTH 5 DAYSNormalKettering Health – Soin Medical CenterBacteria identified Aer cx Nom (Bld)CULTURE RESULTS NO GROWTH 5 DAYSNormalProMadison HealthCBC AND AUTO DIFFon 04-23-2023 ABSOLUTE BASOPHIL0.0 X10E9/LNormal0.0-0.2ProMedJ.W. Ruby Memorial HospitalComment on above:Performed By: #### 29616-9, , 1987-08, 2275-07, CMP, CBCA ####[facility] ([id number])[address] [place], [place] [address]FGRDHSLK NEUTROPHIL4.8 X10E9/LNormal1.5-6.6ProMadison HealthComment on above: Performed By: #### 99101-0, , 1987-08, 2275-07, CMP, CBCA ####[facility] ([id number])[address] [place], [place] [address]Jsaijxxbv/100 WBC (Bld)0.5 %NormalProMadison HealthComment on above:Performed By: #### 18593-7, , 1987-08, 2275-07, CMP, CBCA ####[facility] ([id number])[address] [place], [place] [address]Rsoxuswgbeu (Bld) [#/Vol]0.1 10*3/uL Normal0.0-0.4K[facility] Soin Medical CenterComment on above:Performed By: #### 37797-6, , 1987-08, 2275-07, CMP, CBCA ####[facility] ([id number])[address] [place], [place] [address]Ixpulxwaonj/100 WBC (Bld)0.8 %Normal ProMFisher-Titus Medical CenterComment on above:Performed By: #### 08153-3, , 1987-08, 2275-07, CMP, CBCA ####[facility] ([id number])[address] [place], [place] [address]Kppkqqjenea distribution width (RBC) [Ratio]19.7 %High 11.5-15.0ProMadison HealthComment on above:Performed By: #### 17295-7, , 1987-08, 2275-07, CMP, CBCA ####[facility] ([facility] [address])[address] [place], [place] [address]Ulvoblxfph (Bld) [Volume fraction]32.6 % Bdx97-81XbwYrgkye [facility] Tuberculosis HospitalComment on above:Performed By: #### 25384-9, , 1987-08, 2275-07, CMP, CBCA ####[facility] ([facility] [address])[address] [place], [place] [address]Treskcfsto (Bld) [Mass/Vol]10.4 g/dLLow 11.7-15.5ProMedJ.W. Ruby Memorial HospitalComment on above:Performed By: #### 78493-2, , 1987-08, 2275-07, CMP, CBCA ####[facility] ([facility] [address])[address] [place], [place] [address]Bbrjgqpwsca (Bld) [#/Vol]1.5 10*3/uLNormal 1.0-3.5PProMedica Defiance Regional HospitalComment on above:Performed By: #### 49348-7, , 1987-08, 2275-07, CMP, CBCA ####[facility] ([facility] [address])[address] [place], [place] [address]Jdxpivhlvnn/100 WBC (Bld)20.9 %Normal [facility] HospitalComment on above:Performed By: #### 18235-9, , 1987-08, 2275-07, CMP, CBCA ####[facility] ([id number])[address] [place], [place] [address]HCN (RBC) [Entitic mass]27.2 nzCeztkp28-19EgyBhesxtMadison HealthComment on above:Performed By: #### 32727-9, , 1987-08, 2275-07, CMP, CBCA ####[facility] ([id number])[address] [place], [place] [address]BVEC (RBC) [Mass/Vol]31.7 g/eRQyi04-09SyeWncpbq [facility] HospitalComment on above:Performed By: #### 52365-7, , 1987-08, 2275-07, CMP, CBCA ####[facility] ([id number])[address] [place], [place] [address]YRR (RBC) [Entitic vol]86 qGZeglrc27-770IyvRltams [facility] HospitalComment on above:Performed By: #### 52067-6, , 1987-08, 2275-07, CMP, CBCA ####[facility] ([id number])[address] [place], [place] [address]Bbwtnldld (Bld) [#/Vol]0.7 10*3/uLNormal0-0.9ProMadison HealthComment on above: Performed By: #### 04230-9, , 1987-08, 2275-07, CMP, CBCA ####[facility] ([id number])[address] [place], [place] [address]Wiobpjzyd/100 WBC (Bld)10.2 %NormalProAdena Health System HospitalComment on above:Performed By: #### 92229-2, , 1987-08, 2275-07, CMP, CBCA ####[facility] ([id number])[address] [place], [place] [address]Adaktceplgi/100 WBC (Bld)67.6 % NormalProAdena Health System HospitalComment on above:Performed By: #### 81895-4, 0, 1987-08, 2275-07, CMP, CBCA ####[facility] ([id number])[address] [place], [place] [address]Kpxscrsw mean volume (Bld) [Entitic vol] 8.1 fLNormal7-12Pro[facility] HospitalComment on above:Performed By: #### 21991-1, , 1987-08, 2275-07, CMP, CBCA ####[facility] ([id number])[address] [place], [place] [address]Lhkoaxlfj (Bld) [#/Vol]362 10*3/uL Iulbhk721-119QzvXystnrMadison HealthComment on above:Performed By: #### 84912-0, , 1987-08, 2275-07, CMP, CBCA ####[facility] ([id number])[address] [place], [place] [address]PPC COUNT3.81 X10E12/LNormal 3.80-5.20ProMadison HealthComment on above:Performed By: #### 81855-1, , 1987-08, 2275-07, CMP, CBCA ####[facility] ([id number])[address] [place], [place] [address]KEW morphology finding Nom (Bld)NORMAL NormalProMadison HealthComment on above:Performed By: #### 35816-9, , 1987-08, 2275-07, CMP, CBCA ####[facility] ([id number])[address] [place], [place] [address]XIB (Bld) [#/Vol]7.1 10*3/uLNormal4.0-11.0 [facility] HospitalComment on above:Performed By: #### 05131-5, , 1987-08, 2275-07, CMP, CBCA ####[facility] ([id number])[address] [place], [place] [address]TQYKFSSYTXOMF METABOLIC PANELon 02-64-4507Saruvyu [Mass/Vol]3.0 g/dLLow3.2-5.3[facility] HospitalComment on above:Performed By: #### 96898-6, , 1987-08, 2275-07, CMP, CBCA ####[facility] ([id number])[address] [place], [place] [address]QXT [Catalytic activity/Vol]62 U/OCtniom75-921BawAuksijMadison HealthComment on above: Performed By: #### 09299-4, 0, 1987-08, 2275-07, CMP, CBCA ####[facility] ([id number])[address] [facility] [place], [place] [address]OFX [Catalytic activity/Vol]18 U/LNormal0-31ProMedJ.W. Ruby Memorial HospitalComment on above: Performed By: #### 89758-0, , 1987-08, 2275-07, CMP, CBCA ####[facility] ([id number])[address] [place], [place] [address]Pvbzj gap [Moles/Vol]5 mmol/LNormal5-15ProMadison HealthComment on above: Performed By: #### 29073-1, , 1987-08, 2275-07, CMP, CBCA ####[facility] ([id number])[address] [facility] [place], [place] [address]AKK [Catalytic activity/Vol]18 U/LNormal0-41ProMadison HealthComment on above: Performed By: #### 95534-8, , 1987-08, 2275-07, CMP, CBCA ####[facility] ([id number])[address] [place], [place] [address]Kdzzzvige [Mass/Vol]0.6 mg/dLNormal0.3-1.2PFirelands Regional Medical Center HospitalComment on above: Performed By: #### 86568-2, , 1987-08, 2275-07, CMP, CBCA ####[facility] ([id number])[address] [place], [place] [address]Dtfhxtm [Mass/Vol]9.8 mg/dLNormal8.5-10.5PFirelands Regional Medical Center HospitalComment on above: Performed By: #### 96713-5, 0, 1987-08, 2275-07, CMP, CBCA ####[facility] ([id number])[address] [place], [place] [address]Xexsewsj [Moles/Vol]118 mmol/TBgub48-314FnlWzrrhqMadison HealthComment on above: Performed By: #### 39952-7, , 1987-08, 2275-07, XENIA, CBCA ####[facility] ([id number])[address] [place], [place] [address]VJ7 [Moles/Vol]23 mmol/WMohhuv95-77MhpTpjdrr [facility] HospitalComment on above:Performed By: #### 85314-7, , 1987-08, 2275-07, XENIA, CBCA ####[facility] ([id number])[address] [place], [place] [address]Mhoporcetv [Mass/Vol]0.69 mg/dL Normal0.40-1.00ProMadison HealthComment on above:Result Comment: METHOD TRACEABLE TO IDMS STANDARDPerformed By: #### 96825-4, , 1987-08, 2275-07, XENIA, CBCMindi ####[facility] ([id number])[address] [place], [place] [address]cYKJ (CKD-EPI) NON-RACE DEPENDENT>90Normal>59[facility] Comment on above:Result Comment: Reported eGFR is based on the CKD-EPI 2020 equation that does not use a race coefficient.Performed By: #### 29369-4, , 1987-08, 2275-07, XENIA, ANNA ####[facility] ([id number])[address] [place], [place] [address]Ryqaafh [Mass/Vol]134 mg/rGWyvq45-82JxwMrusddMadison HealthComment on above:Performed By: #### 02923-9, , 1987-08, 2275-07, XENIA, CBCA ####[facility] ([id number])[address] [place], [place] [address]Hfngztyla [Moles/Vol]3.4 mmol/LLow3.5-5.0ProMadison HealthComment on above: Performed By: #### 62986-1, , 1987-08, 2275-07, CMP, CBCA ####[facility] ([id number])[address] [facility] [place] [address]Ibuzfxm [Mass/Vol]7.4 g/dLNormal6.0-8.0ProMadison HealthComment on above: Performed By: #### 61043-8, , 1987-08, 2275-07, CMP, CBCA ####[facility] ([id number])[address] [place], [place] [address]Cnkwyd [Moles/Vol]146 mmol/ILovyyf879-307BeuWvqsrx [facility] HospitalComment on above: Performed By: #### 80803-0, , 1987-08, 2275-07, CMP, CBCA ####[facility] ([id number])[address] [facility], [place] [id number] nitrogen [Mass/Vol]20 mg/dLNormal5-23ProMadison HealthComment on above:Performed By: #### 80145-0, , 1987-08, 2275-07, CMP, CBCA ####[facility] ([id number])[address] [facility], [place] [id number] [Mass/Vol]on 04-23-2023 C REACTIVE PROTEIN3.4 mg/dLHigh0.000-0.744PProMedica Defiance Regional HospitalComment on above:Performed By: #### 01500-4, , 1987-08, 2275-07, CMP, CBCA ####[facility] ([id number])[address] [facility], [place] [address]AKGFOQWTyj 17-93-1222Ynbcyxij [Mass/Vol]41 ng/oPSmuwsi62-245GiyDecqyu [facility] Comment on above:Performed By: #### 50753-9, 0, 1987-08, 2275-07, CMP, CBCA ####[facility] ([id number])[address] [place] [address] Fibrin D-dimer DDU (PPP) [Mass/Vol]on 3D ATRRM886 ng/mL DDUHigh<255 [facility] CenterComment on above:Result Comment: Results >=255ng/mL DDU: Results may be indicative of the presence of VTE. The use of the Wells score and further diagnostic tests should be considered. Elevated D-Dimer levels can also be associated with DIC, neoplasm, , trauma and liver disease. Elevated levels of rheumatoid factor may lead to an overestimation of the D-Dimer level.Performed By: #### 04489-1, , 1987-08, 2275-07, CMP, CBCA ####[facility] ([id number])[address] [place], [place] [address]Qlqqhmu Glucometer (BldC) [Mass/Vol]on 83-49-7754Cquaiyv [Mass/Vol]129 mg/cNVvon32-05VfyFmtrwa [facility] HospitalGlucose [Mass/Vol]96 mg/dL Nbayfh46-17EqpOzpzwvMadison HealthGlucose [Mass/Vol]136 mg/sSTckg68-57 ProMFisher-Titus Medical CenterGlucose [Mass/Vol]127 mg/xBNdjs08-24NbkSumxxw [facility] HospitalGlucose [Mass/Vol]115 mg/jFSjiw00-84HbwPjdgyxKettering Health – Soin Medical CenterLDH [Catalytic activity/Vol]on 44-51-8666IQB571 U/WMebuga217-342GviWubalpKettering Health – Soin Medical CenterComment on above:Performed By: #### 68530-2, , 1987-08, 2275-07, CMP, CBCA ####[facility] ([id number])[address] [place], [place] [address]BRCAO RESPIRATORY CULTUREon 30-95-7084Gwtoaohm identified Respiratory culture Nom (Sput)GRAM STAIN 10 [...] PIPERACIL/TAZOBACTAM S 16 F TOBRAMYCIN S <=1 FSusceptibleProMadison HealthComment on above: Performed By: #### XENIA, 03917-7, 15549-6, CBCA #### [facility] ([id number]) [address] [facility] [place], [place] [address]CMJLVUNFDhd 15-09-2975Oxdnptfsj [Moles/Vol]3.7 mmol/LNormal 3.5-5.0ProMadison HealthComment on above:Performed By: #### XENIA, 08411- 0, 53238-1, CBCA #### [facility] ([id number]) [address] [facility] [place], [place] [id number] CHEST 1 VWon 19-36-7733OC CHEST 1 VWXR CHEST 1 VW Single [...] by Alli Bateman MD on 04/23/2023 6:11 AMNormalProMount Carmel Health System AND AUTO DIFFon 42-45-0747Bgwgbxvxtwc (Bld) [#/Vol]0.1 10*3/uLNormal 0.0-0.4[facility] So[facility] Medical CenterComment on above:Performed By: #### 624-7 #### [facility] ([id number]) [address], [address] [place], [place] [address]Fyjkxrskinq/100 WBC (Bld)1.0 %[facility] Comment on above:Performed By: #### 624-7 #### [facility] ([id number]) [address], [address] [place], [place] [address]Ioikxikpgdi distribution width (RBC) [Ratio]20.5 %High11.5-15.0 ProMedicSan [facility] Hospital HospitalComment on above:Performed By: #### 624-7 #### [facility] ([id number]) [address], [address] [place], [place] [address]Zpsmvsckqz (Bld) [Volume fraction]34.1 %Ibp60-04FabGyjtiuKettering Health – Soin Medical CenterComment on above:Performed By: #### 624-7 #### [facility] ([id number]) [address], [address] [place], [place] [address]Knbdwpfiha (Bld) [Mass/Vol]10.8 g/dLLow11.7-15.5PProMedica Defiance Regional HospitalComment on above:Performed By: #### 624-7 #### [facility] ([id number]) [address], [address] [place], [place] [address]WACUYDMYUT, ATYPICAL2.0 %NormalKettering Health – Soin Medical CenterComment on above:Performed By: #### 624-7 #### [facility] ([id number]) [address], [address] [place], [place] [address]Mlnimpulrbr (Bld) [#/Vol]2.0 10*3/uLNormal1.0-3.5PProMedica Defiance Regional HospitalComment on above:Performed By: #### 624-7 #### [facility] ([id number]) [address], [address] [place], [place] [address]Dmetmtsruwf/100 WBC (Bld)26.5 %NormalKettering Health – Soin Medical Center Comment on above:Performed By: #### 624-7 #### [facility] ([id number]) [address], [address] [place], [place] [address]IVR (RBC) [Entitic mass]26.9 tgRej39-44CdlLukwqcKettering Health – Soin Medical CenterComment on above:Performed By: #### 624-7 #### [facility] ([id number]) [address], [address] [place], [place] [address]AHWB (RBC) [Mass/Vol]31.6 g/lGRij56-60AkxIsdspsKettering Health – Soin Medical Center Comment on above:Performed By: #### 624-7 #### [facility] ([id number]) [address], [address] [place], [place] [address]ALP (RBC) [Entitic vol]85 iRYpltlz21-093JtiYlasauKettering Health – Soin Medical CenterComment on above:Performed By: #### 624-7 #### [facility] ([id number]) [address], [address] [place], [place] [address]Bxluekerk (Bld) [#/Vol]0.9 10*3/uLNormal0-0.9K[facility] So[facility] Medical CenterComment on above:Performed By: #### 624-7 #### [facility] ([id number]) [address], [address] [place], [place] [address]Qwikgflpy/100 WBC (Bld)12.7 %NormalKettering Health – Soin Medical Center Comment on above:Performed By: #### 624-7 #### [facility] ([id number]) [address], [address] [place], [place] [address]Zmsqcbgjhqj (Bld) [#/Vol]4.2 10*3/uLNormal1.5-6.6K[facility] Soin Medical CenterComment on above:Performed By: #### 624-7 #### [facility] ([id number]) [address], [address] [place], [place] [address]SLYXIWZFU RBC1.0 /100 WBCNormal0.0-1.0[facility] Comment on above:Performed By: #### 624-7 #### [facility] ([id number]) [address], [address] [place], [place] [address]Xjlfcbsv mean volume (Bld) [Entitic vol]7.8 fLNormal7-12 [facility]MReg[facility] HospitalComment on above:Performed By: #### 624-7 #### [facility] ([id number]) [address], [address] [place], [place] [address]Nnmlvrvkl (Bld) [#/Vol]370 10*3/xWWtoexy245-496GinMccffb [facility] HospitalComment on above:Performed By: #### 624-7 #### [facility] ([id number]) [address], [address] [place], [place] [address]KSRMSAGSNPSRE2+AbnormalNONEProMedica Oregon State Tuberculosis HospitalComment on above:Performed By: #### 624-7 #### [facility] ([id number]) [address], [address] [place], [place] [address]VKV COUNT4.00 X10E12/LNormal3.80-5.20[facility] Comment on above:Performed By: #### 624-7 #### [facility] ([id number]) [address], [address] [place], [place] [address]JKW KSYUDWKTSN93.8 %NormalProAdena Health System HospitalComment on above:Performed By: #### 624-7 #### [facility] ([id number]) [address], [address] [place], [place] [address]MOA (Bld) [#/Vol]7.3 10*3/uLNormal4.0-11.0ProAdena Health System HospitalComment on above:Performed By: #### 624-7 #### [facility] ([id number]) [address], [address] [place], [place] [address]CIBTOPKKIVUNV METABOLIC PANELon 56-89-9553Fsdonnl [Mass/Vol]3.0 g/dLLow3.2-5.3PFirelands Regional Medical Center HospitalComment on above:Performed By: #### 624- 7 #### [facility] ([id number]) [address], [address] [place], [place] [address]TIB [Catalytic activity/Vol]68 U/ONuhopy35-079RmtAbhnwk [facility] HospitalComment on above:Performed By: #### 624-7 #### [facility] ([id number]) [address], [address] [place], [place] [address]JZN [Catalytic activity/Vol]16 U/LNormal0-31PFirelands Regional Medical Center HospitalComment on above:Performed By: #### 624-7 #### [facility] ([id number]) [address], [address] [place], [place] [address]Uaknd gap [Moles/Vol]11 mmol/LNormal5-15ProAdena Health System HospitalComment on above:Performed By: #### 624-7 #### [facility] ([id number]) [address], [address] [place], [place] [address]FKA [Catalytic activity/Vol]18 U/LNormal0-41ProAdena Health System HospitalComment on above:Performed By: #### 624-7 #### [facility] ([id number]) [address], [address] [place], [place] [address]Rafryqkhm [Mass/Vol]0.5 mg/dLNormal0.3-1.2PFirelands Regional Medical Center HospitalComment on above:Performed By: #### 624-7 #### [facility] ([id number]) [address], [address] [place], [place] [address]Hwzdeqn [Mass/Vol]9.5 mg/dLNormal8.5-10.5PProMedica Defiance Regional HospitalComment on above:Performed By: #### 624-7 #### [facility] ([id number]) [address], [address] [place] [id number] [Moles/Vol]113 mmol/CJzpu63-344GdjRsezytMadison HealthComment on above:Performed By: #### 624-7 #### [facility] ([id number]) [address], [address] [place], [place] [address]VO6 [Moles/Vol]22 mmol/PZlltrn97-85EooLavzmfProMedica Defiance Regional Hospital Comment on above:Performed By: #### 624-7 #### [facility] ([id number]) [address] [address] [place], [place] [address]Sjplxlxbhy [Mass/Vol]0.85 mg/dLNormal0.40-1.00K[facility] So[facility] Medical CenterComment on above:Result Comment: METHOD TRACEABLE TO IDMS STANDARD Performed By: #### 624-7 #### [facility] ([id number]) [address] [address] [place] [address]UOL/1.73 sq M.predicted among non-blacks MDRD (S/P/Bld) [Vol rate/Area]78 mL/min/{1.73_m2}Normal>59ProMadison HealthComment on above:Result Comment: Reported eGFR is based on the CKD-EPI 2021 equation that does not use a race coefficient.Performed By: #### 624-7 #### [facility] ([id number]) [address], [address] [place], [place] [address]Efdletl [Mass/Vol]107 mg/dERjvd25-09QqsGkbjurKettering Health – Soin Medical Center Comment on above:Performed By: #### 624-7 #### [facility] ([id number]) [address], [address] [place], [place] [address]Xzjqnnlux [Moles/Vol]3.3 mmol/LLow3.5-5.0ProAdena Health System HospitalComment on above:Performed By: #### 624-7 #### [facility] ([id number]) [address], [address] [place], [place] [address]Viojpou [Mass/Vol]7.6 g/dLNormal6.0-8.0ProAdena Health System HospitalComment on above:Performed By: #### 624-7 #### [facility] ([id number]) [address], [address] [place], [place] [address]Hyjtqb [Moles/Vol]146 mmol/ATywlce504-602PlmOacyro [facility] HospitalComment on above:Performed By: #### 624-7 #### [facility] ([id number]) [address], [address] [place], [place] [address]Niis nitrogen [Mass/Vol]22 mg/dLNormal5-23ProAdena Health System HospitalComment on above:Performed By: #### 624-7 #### [facility] ([id number]) [address], [address] [place], [place] [address]Btjaoak Glucometer (BldC) [Mass/Vol]on 61-55-7502Hxtkojf [Mass/Vol]149 mg/mVCibg65-25FpaYsukwv [facility] HospitalGlucose [Mass/Vol]126 mg/zZCzjm07-06RqaVxrurm [facility] HospitalGlucose [Mass/Vol]109 mg/yEVsrt33-77 ProMReg[facility] HospitalGlucose [Mass/Vol]103 mg/zNLafx34-01QqiIbeosxMadison HealthPOTASSIUMon 39-26-9251Nsdlpprub [Moles/Vol]3.8 mmol/LNormal3.5-5.0 [facility] HospitalComment on above:Performed By: #### 624-7 #### [facility] ([id number]) [address], [address] [place], [place] [address]Lflnmmfrh [Moles/Vol]3.3 mmol/LLow3.5-5.0K[facility] So[facility] Medical CenterComment on above:Performed By: #### 624-7 #### [facility] ([id number]) [address], [address] [place], [place] [address]NDEBIINDFOHIid 28-76-8350Lxdxzdgenenw [Mass/Vol]510 mg/dLHigh 27-150ProMadison HealthComment on above:Performed By: #### 624-7 #### [facility] ([id number]) [address], [address] [place], [place] [address]LV CHEST 1 VWon 39-26-9132XW CHEST 1 VWXR CHEST 1 VW Single [...] Victor Hugo Gustafson MD on 04/22/2023 6:14 AMNormalProMadison HealthCB AND AUTO DIFFon 40-83-6149UKWCQSUS BASOPHIL0.0 X10E9/LNormal0.0-0.2 [facility] HospitalComment on above:Performed By: #### 2571-8 ####[facility] ([id number])[address], [place] [address]#### CMP, CBCA ####[facility] ([id number])[address] [place], [place] [address]QUWOWGIF NEUTROPHIL4.3 X10E9/LNormal1.5-6.6[facility] Comment on above:Performed By: #### 2571-8 ####[facility] ([id number])[address] [facility], [address] [place] [address]#### CMP, CBCA ####[facility] ([id number])[address] [place], [place] [address]Csbwwymji/100 WBC (Bld)0.4 %NormalProMadison HealthComment on above:Performed By: #### 2571-8 ####[facility] ([id number])0 [facility] [address] [place] [address]#### CMP, CBCA ####[facility] ([id number])[address] [place], [place] [address]Usltlnrdfvi (Bld) [#/Vol]0.1 10*3/uL Normal0.0-0.4ProMadison HealthComment on above:Performed By: #### 2571- 8 ####[facility] ([id number])0 [facility], [address] [place] [address]#### CMP, CBCA ####[facility] ([id number])[address] [place], [place] [address]Kthxrdzyaiy/100 WBC (Bld)1.2 %NormalProMadison HealthComment on above:Performed By: #### 2571-8 ####[facility] ([id number])0 [facility] [address] [place] [address]#### CMP, CBCA ####[facility] ([id number])[address] [place], [place] [address]Zbvjpivxlwt distribution width (RBC) [Ratio]20.6 %High11.5-15.0[facility] Comment on above:Performed By: #### 2571-8 ####[facility] ([id number])[address], [place] [address]#### CMP, CBCA ####[facility] ([id number])[address] [place], [place] [address]Btgltfcvjs (Bld) [Volume fraction]31.6 %Ixx26-01OhrBircfq [facility] HospitalComment on above: Performed By: #### 2571-8 ####[facility] ([id number])[address] [facility] [address], [place] [address]#### CMP, CBCA ####[facility] ([id number])[address] [place], [place] [address]Heextjzwok (Bld) [Mass/Vol] 10.1 g/dLLow11.7-15.5ProMedJ.W. Ruby Memorial HospitalComment on above:Performed By: #### 2571-8 ####[facility] ([id number])[address] [facility] [address], [place] [address]#### CMP, CBCA ####[facility] ([id number])[address] [place], [place] [address]Atfpmoqilfl (Bld) [#/Vol]1.3 10*3/uL Normal1.0-3.5PProMedica Defiance Regional HospitalComment on above:Performed By: #### 2571- 8 ####[facility] ([id number])[address], [address], [place] [address]#### CMP, CBCA ####[facility] ([id number])[address] [place], [place] [address]Gmyjxodycvs/100 WBC (Bld)21.1 %NormalProMadison HealthComment on above:Performed By: #### 2571-8 ####[facility] ([id number])[address] [address], [place] [address]#### CMP, CBCA ####[facility] ([id number])[address] [place], [place] [address]CLG (RBC) [Entitic mass]27.2 deEeozfg90-35WsmNlblsw [facility] HospitalComment on above: Performed By: #### 2571-8 ####[facility] ([id number])[address], [address] [place] [address]#### CMP, CBCA ####[facility] ([id number])[address] [place], [place] [address]VLJL (RBC) [Mass/Vol]32.1 g/gAInlegs93-71PsrBbbeed [facility] HospitalComment on above:Performed By: #### 2571-8 ####[facility] ([id number])0 [facility] [address] [place] [address]#### CMP, CBCA ####[facility] ([id number])[address] [place], [place] [address]TSH (RBC) [Entitic vol]85 fLNormal 80-100ProMedica [facility] HospitalComment on above:Performed By: #### 2571-8 ####[facility] ([id number])0 [facility] [address] [place] [address]#### CMP, CBCA ####[facility] ([id number])[address] [place], [place] [address]Qyihovacp (Bld) [#/Vol]0.5 10*3/uLNormal0-0.9Pro[facility]ica [facility] HospitalComment on above:Performed By: #### 2571-8 ####[facility] ([id number])[address] [address] [place] [address]#### CMP, CBCA ####[facility] ([id number])[address] [place] [address] Monocytes/100 WBC (Bld)8.3 %NormalProUniversity Hospitals Cleveland Medical Centerca [facility] HospitalComment on above: Performed By: #### 2571-8 ####[facility] ([id number])[address] [place] [address]#### CMP, CBCA ####[facility] ([id number])[address] [facility] [place] [address]Byhiklwtyqr/100 WBC (Bld) 69.0 %NormalProMadison HealthComment on above:Performed By: #### 2571-8 ####[facility] ([id number])[address] [place] [address]#### CMP, CBCA ####[facility] ([id number])[address] [facility] [place] [place] [address]Wbzraizi mean volume (Bld) [Entitic vol]7.7 fLNormal7-12 [facility] HospitalComment on above:Performed By: #### 2571-8 ####[facility] ([id number])[address] [place] [address]#### CMP, CBCA ####[facility] ([id number])[address] [facility], [place] [address]Azboidaau (Bld) [#/Vol]349 10*3/xWKvbfkd703-004JbmIzfarnKettering Health – [facility] Center Comment on above:Performed By: #### 2571-8 ####[facility] ([id number])[address], [place] [address]#### CMP, CBCA ####[facility] ([id number])[address] [facility] [place] [place] [address]YKX COUNT3.73 X10E12/LLow3.80-5.20ProMadison HealthComment on above:Performed By: #### 2571-8 ####[facility] ([id number])[address], [place] [address]#### CMP, CBCA ####[facility] ([id number])[address] [place], [place] [address]YLU morphology finding Nom (Bld) REVIEWEDNormalProMedica [facility] State Tuberculosis HospitalComment on above:Performed By: #### 2571-8 ####[facility] ([id number])[address], [address] [place] [address]#### CMP, CBCA ####[facility] ([id number])[address] [place], [place] [address]TRT (Bld) [#/Vol]6.2 10*3/uLNormal 4.0-11.0[facility] HospitalComment on above:Performed By: #### 2571-8 ####[facility] ([id number])0 [facility], [address] [place] [address]#### CMP, CBCA ####[facility] ([id number])[address] [place], [place] [address]RNGMOVEXUPPID METABOLIC PANELon 86-41-1789Snqjscd [Mass/Vol] 2.7 g/dLLow3.2-5.3[facility] HospitalComment on above:Performed By: #### 2571-8 ####[facility] ([id number])[address], [address] [place] [address]#### CMP, CBCA ####[facility] ([id number])[address] [place], [place] [address]MJX [Catalytic activity/Vol]63 U/L Agnmgn05-754JjrJbzglcMadison HealthComment on above:Performed By: #### 2571-8 ####[facility] ([id number])[address], [place] [address]#### CMP, CBCA ####[facility] ([id number])[address] [place], [place] [address]VBA [Catalytic activity/Vol]14 U/LNormal0-31ProMedSouthview [facility] Center HospitalComment on above:Performed By: #### 2571-8 ####[facility] ([id number])[address] [place] [address]#### CMP, CBCA ####[facility] ([id number])[address] [facility] [place], [place] [address]Ujmth gap [Moles/Vol]7 mmol/LNormal5-15[facility] HospitalComment on above: Performed By: #### 2571-8 ####[facility] ([id number])[address] [facility], [address] [place] [address]#### CMP, CBCA ####[facility] ([id number])[address] [facility] [place], [place] [address]JWP [Catalytic activity/Vol]16 U/LNormal0-41[facility] HospitalComment on above: Performed By: #### 2571-8 ####[facility] ([id number])[address] [facility], [address] [address]#### CMP, CBCA ####[facility] ([id number])[address] [facility] [place], [place] [address]Dgbevaswb [Mass/Vol]0.7 mg/dLNormal0.3-1.2ProMedSouthview Medical Center HospitalComment on above:Performed By: #### 2571-8 ####[facility] ([id number])[address] [place] [address]#### CMP, CBCA ####[facility] ([id number])[address] [facility] [place], [place] [address]Nareeie [Mass/Vol]8.2 mg/dLLow 8.5-10.5ProMedSouthview Medical Center HospitalComment on above:Performed By: #### 2571-8 ####[facility] ([id number])[address] [place] [address]#### CMP, CBCA ####[facility] ([id number])[address] [place], [place] [address]Esrjjidd [Moles/Vol]115 mmol/TDtdc28-757CrzHdonkqMadison HealthComment on above:Performed By: #### 2571-8 ####[facility] ([id number])[address] [facility], [address], [place] [address]#### CMP, CBCA ####[facility] ([id number])[address] [place], [place] [address]XA6 [Moles/Vol]23 mmol/CYwbjaf82-26OrrWfwbdp [facility] HospitalComment on above: Performed By: #### 2571-8 ####[facility] ([id number])[address] [place] [address] [place] [address]#### CMP, CBCA ####[facility] ([id number])[address] [place] [address]Xiwwkksynr [Mass/Vol]0.77 mg/dLNormal0.40-1.00ProMadison HealthComment on above:Result Comment: METHOD TRACEABLE TO IDMS STANDARDPerformed By: #### 2571-8 ####[facility] ([id number])[address] [place] [address], [address] [place] [address]#### CMP, CBCA ####[facility] ([id number])[address] [place] [address] GFR/1.73 sq M.predicted among non-blacks MDRD (S/P/Bld) [Vol rate/Area]88 mL/min/{1.73_m2}Normal>59ProMadison HealthComment on above:Result Comment: Reported eGFR is based on the CKD-EPI 2020 equation that does not use a race coefficient.Performed By: #### 2571-8 ####[facility] ([id number])[address] [place] [address], [address] [place] [address]#### CMP, CBCA ####[facility] ([id number])[address] [place] [address] Glucose [Mass/Vol]100 mg/qQIkqm86-46CtkRflsuh [facility] HospitalComment on above: Performed By: #### 2571-8 ####[facility] ([id number])0 [facility], [address], [place] [address]#### CMP, CBCA ####[facility] ([id number])[address] [place], [place] [address]Ctjoytrxf [Moles/Vol]4.1 mmol/LNormal3.5-5.0ProA[facility] HospitalComment on above:Performed By: #### 2571-8 ####[facility] ([id number])0 [facility], [address], [place] [address]#### CMP, CBCA ####[facility] ([id number])[address] [place], [place] [address]Frmbkbx [Mass/Vol]6.8 g/dLNormal 6.0-8.0ProMadison HealthComment on above:Performed By: #### 2571-8 ####[facility] ([id number])0 [facility], [address] [place] [address]#### CMP, CBCA ####[facility] ([id number])[address] [place], [place] [address]Eciilx [Moles/Vol]145 mmol/CDiihgv094-430TcxYhaqge [facility] HospitalComment on above:Performed By: #### 2571-8 ####[facility] ([id number])0 [facility], [address], [place] [address]#### CMP, CBCA ####[facility] ([id number])[address] [place], [place] [address]Vqnc nitrogen [Mass/Vol]21 mg/dLNormal5-23ProAdena [facility] HospitalComment on above: Performed By: #### 2571-8 ####[facility] ([id number])[address] [place] [address], [address] [place] [address]#### XENIA, CBCA ####[facility] ([id number])[address] [place] [address]Zetnevp Glucometer (BldC) [Mass/Vol]on 36-04-6959Uvhkczb [Mass/Vol]170 mg/vHMbhg79-02TnuGwkjxzMadison HealthGlucose [Mass/Vol]102 mg/rZVlyk03-94RwtUttfukMadison HealthGlucose [Mass/Vol]93 mg/iBMgkmew40-70TznNtixzxMadison HealthGlucose [Mass/Vol]115 mg/wGYxzt82-89JomMzdsmzKettering Health – Soin Medical CenterTRIGLYCERIDEon 33-15-8270Plcgalygqmxo [Mass/Vol]422 mg/jJYyly08-247KggWanpceKettering Health – Soin Medical CenterComment on above: Performed By: #### 2571-8 ####[facility] ([id number])[address] [place] [address], [address] [place] [id number]#### XENIA, CBCA ####[facility] ([id number])[address] [place] [address] 76966KQ CHEST 1 VWon 04-21-2023 XR CHEST 1 [...] Victor Hugo Kim MD on 04/21/2023 5:51 AMNormalProMediTriHealth Good Samaritan HospitalCB AND AUTO DIFFon 56-84-2649IENQXKIY BASOPHIL0.0 X10E9/LNormal0.0-0.2 ProMedicWayne HealthCare Main CampusComment on above:Performed By: #### CBCA, CMP ####[facility] ([id number])[address] [place], [place] [id number]#### 2571-8 ####[facility] ([id number])[address], [address] [place] [place], [place] [id number] NEUTROPHIL3.9 X10E9/LNormal1.5-6.6ProMadison Health Comment on above:Performed By: #### CBCA, CMP ####[facility] ([id number])[address] [place], [place] [id number]#### 2571-8 ####[facility] ([id number])[address], [address] [place], [place] [id number]/100 WBC (Bld)0.3 %NormalProMadison HealthComment on above:Performed By: #### CBCA, CMP ####[facility] ([id number])[address] [place], [place] [id number]#### 2571-8 ####[facility] ([id number])[address] [place] [id number] (Bld) [#/Vol]0.1 10*3/uLNormal 0.0-0.4ProMadison HealthComment on above:Performed By: #### CBCA, CMP ####[facility] ([id number])[address] [place], [place] [id number]#### 2571-8 ####[facility] ([id number])[address] [place] [id number]/100 WBC (Bld)1.1 %NormalProMadison HealthComment on above:Performed By: #### CBCA, CMP ####[facility] ([id number])[address] [place], [place]#### 2571-8 ####[facility] ([id number])[address] [place] [id number] Erythrocyte distribution width (RBC) [Ratio]21.9 %High11.5-15.0ProMadison HealthComment on above:Performed By: #### CBCA, CMP ####[facility] ([id number])[address] [facility] [id number]#### 2571-8 ####[facility] ([id number])[address], [place] [address] Hematocrit (Bld) [Volume fraction]31.9 %Dwx92-56CheCosfgjMadison Health Comment on above:Performed By: #### CBCA, CMP ####[facility] ([id number])[address] [facility] [id number]#### 2571-8 ####[facility] ([id number])[address], [place] [address]Rcmhdxzijp (Bld) [Mass/Vol]10.0 g/dLLow11.7-15.5PProMedica Defiance Regional HospitalComment on above: Performed By: #### CBCA, CMP ####[facility] ([id number])[address] [facility] [id number]#### 2571-8 ####[facility] ([id number])[address], [address], [place] [address]Ouclvfroimk (Bld) [#/Vol] 1.2 10*3/uLNormal1.0-3.5PProMedica Defiance Regional HospitalComment on above:Performed By: #### CBCA, CMP ####[facility] ([id number])[address] [facility] [id number]#### 2571-8 ####[facility] ([id number])[address], [place] [address]Oistfwikhpz/100 WBC (Bld)20.9 %Normal [facility] Tuberculosis HospitalComment on above:Performed By: #### CBCA, CMP ####[facility] ([id number])[address] [place], [place]#### 2571-8 ####[facility] ([id number])[address], [address], [place] [address]EKP (RBC) [Entitic mass]26.5 nvDkp91-97XqiOnyzedMadison HealthComment on above:Performed By: #### CBCA, CMP ####[facility] ([id number])[address] [place], [place] [id number]#### 2571-8 ####[facility] ([id number])[address], [address] [place] [address]HYGR (RBC) [Mass/Vol]31.3 g/yOMll33-38LgxGvubnkMadison HealthComment on above:Performed By: #### CBCA, CMP ####[facility] ([id number])[address] [place], [place] [id number]#### 2571-8 ####[facility] ([id number])[address] [address] [place] [address] 46048TPL (RBC) [Entitic vol]85 hRIckfym86-710 [facility] HospitalComment on above:Performed By: #### CBCA, CMP ####[facility] ([id number])[address] [place], [place] [id number]#### 2571-8 ####[facility] ([id number])[address] [address] [place] [address] 34015Gzbvyqefd (Bld) [#/Vol]0.5 10*3/uLNormal0-0.9[facility] Comment on above:Performed By: #### CBCA, CMP ####[facility] ([id number])[address] [place], [place] [id number]#### 2571-8 ####[facility] ([id number])[address], [address] [place] [address] 70619Ntapzxmbp/100 WBC (Bld)8.8 %NormalProUniversity Hospitals Cleveland Medical Centerca [facility] HospitalComment on above:Performed By: #### CBCA, CMP ####[facility] ([id number])[address] [facility] [id number]#### 2571-8 ####[facility] ([id number])[address], [address], [place] [address]Btzaguzzxaj/100 WBC (Bld)68.9 %Normal [facility] HospitalComment on above:Performed By: #### CBCA, CMP ####[facility] ([id number])[address] [place] [address], [id number]#### 2571-8 ####[facility] ([id number])[address], [address] [place] [address] 70950Dgkwixbn mean volume (Bld) [Entitic vol]7.5 fLNormal7-12[facility] HospitalComment on above:Performed By: #### CBCA, CMP ####[facility] ([id number])[address] [facility], [id number]#### 2571-8 ####[facility] ([id number])[address], [address] [place] [address] 50[address] Platelets (Bld) [#/Vol]347 10*3/fRSbivtp888-011HilCrbccu [facility] HospitalComment on above:Performed By: #### CBCA, CMP ####[facility] ([id number])[address] [place] [address], [id number]#### 2571-8 ####[facility] ([id number])[address], [address] [place] [address] 48940HLM COUNT3.77 X10E12/LLow3.80-5.20ProMadison HealthComment on above:Performed By: #### CBCA, CMP ####[facility] ([id number])[address] [facility], [id number]#### 2571-8 ####[facility] ([id number])[address], [address], [place] [address]VGY morphology finding Nom (Bld)REVIEWED NormalProMadison HealthComment on above:Performed By: #### CBCA, CMP ####[facility] ([id number])[address] [facility] [id number]#### 2571-8 ####[facility] ([id number])[address], [address], [place] [address]HIY (Bld) [#/Vol]5.6 10*3/uLNormal4.0-11.0[facility] Medical CenterComment on above:Performed By: #### CBCA, CMP ####[facility] ([id number])[address] [facility] [id number]#### 2571-8 ####[facility] ([id number])[address], [address], [place] [address] COMPREHENSIVE METABOLIC PANELon 25-05-4384Frdelwd [Mass/Vol]2.6 g/dLLow3.2-5.3 [facility] HospitalComment on above:Performed By: #### CBCA, CMP ####[facility] ([id number])[address] [place], [place]#### 2571-8 ####[facility] ([id number])[address], [address], [place] [address]XXZ [Catalytic activity/Vol]66 U/YJjkrek46-869UqdMmfhrwMadison Health Comment on above:Performed By: #### CBCA, CMP ####[facility] ([id number])[address] [facility] [id number]#### 2571-8 ####[facility] ([id number])[address], [address], [place] [address]MMG [Catalytic activity/Vol]14 U/LNormal0-31[facility] HospitalComment on above: Performed By: #### CBCA, CMP ####[facility] ([id number])[address] [facility], [id number]#### 2571-8 ####[facility] ([id number])[address], [address], [place] [address]Nfclf gap [Moles/Vol]7 mmol/LNormal5-15ProA[facility] HospitalComment on above:Performed By: #### CBCA, CMP ####[facility] ([id number])[address] [place] [address]#### 2571-8 ####[facility] ([id number])[address], [address], [place] [address]JYJ [Catalytic activity/Vol]14 U/LNormal0-41ProAdena Health System HospitalComment on above:Performed By: #### CBCA, CMP ####[facility] ([id number])[address] [facility], [id number]#### 2571-8 ####[facility] ([id number])[address], [address], [place] [address]Fqlniattj [Mass/Vol]0.5 mg/dLNormal0.3-1.2[facility] HospitalComment on above:Performed By: #### CBCA, CMP ####[facility] ([id number])[address] [facility], [id number]#### 2571-8 ####[facility] ([id number])[address], [address], [place] [address]Rwudzmj [Mass/Vol]8.4 mg/dLLow8.5-10.5[facility]Med[facility] Center HospitalComment on above: Performed By: #### CBCA, CMP ####[facility] ([id number])[address] [facility], [id number]#### 2571-8 ####[facility] ([id number])[address], [address], [place] [address]Gadahzmc [Moles/Vol]115 mmol/VSnrf97-542WpjItvoxaMadison HealthComment on above:Performed By: #### MARTINA, CMP ####[facility] ([id number])[address] [place] [address]#### 2571-8 ####[facility] ([id number])[address] [facility], [address], [place] [address]TV9 [Moles/Vol]23 mmol/AUgiuwo25-87UxzQkqpcd [facility] HospitalComment on above:Performed By: #### ANNA, CMP ####[facility] ([id number])[address] [place] [address] [id number]#### 2571-8 ####[facility] ([id number])[address] [facility], [address], [place] [address] Creatinine [Mass/Vol]0.75 mg/dLNormal0.40-1.00ProMadison HealthComment on above:Result Comment: METHOD TRACEABLE TO IDMS STANDARDPerformed By: #### ANNA, CMP ####[facility] ([id number])[address] [facility] [place] [address]#### 2571-8 ####[facility] ([id number])[address] [address], [place] [address]yGUM (CKD-EPI) NON-RACE DEPENDENT>90Normal>59ProMadison HealthComment on above:Result Comment: Reported eGFR is based on the CKD-EPI 2020 equation that does not use a race coefficient.Performed By: #### CBCA, CMP ####[facility] ([id number])[address] [facility] [id number]#### 2571-8 ####[facility] ([id number])[address], [address], [place] [address] Glucose [Mass/Vol]100 mg/qWDhqp93-48OefQezydzMadison HealthComment on above: Performed By: #### CBCA, CMP ####[facility] ([id number])[address] [facility], [id number]#### 2571-8 ####[facility] ([id number])[address], [address], [place] [address]Irnkqnumj [Moles/Vol]3.7 mmol/LNormal3.5-5.0ProMadison HealthComment on above:Performed By: #### CBCA, CMP ####[facility] ([id number])[address] [place] [address] [id number]#### 2571-8 ####[facility] ([id number])[address], [address], [place] [address]Xhivthx [Mass/Vol]7.0 g/dLNormal6.0-8.0ProMadison HealthComment on above:Performed By: #### CBCA, CMP ####[facility] ([id number])[address] [place] [address], [id number]#### 2571-8 ####[facility] ([id number])[address], [address], [place] [address]Tnhtlv [Moles/Vol]145 mmol/WSxymph310-182SwpTagrob [facility] HospitalComment on above:Performed By: #### CBCA, CMP ####[facility] ([id number])[address] [facility], [id number]#### 2571-8 ####[facility] ([id number])[address], [address], [place] [address]Fdpo nitrogen [Mass/Vol]16 mg/dLNormal5-23ProMadison HealthComment on above:Performed By: #### CBCA, CMP ####[facility] ([id number])[address] [place], [place]#### 2571-8 ####[facility] ([id number])[address] [facility], [address], [place] [address]Buvtpis Glucometer (BldC) [Mass/Vol]on 44-23-8910Bnhjzwu [Mass/Vol]135 mg/yGAsnf82-80QegNnfsyoMadison HealthGlucose [Mass/Vol]105 mg/jWCksu32-04PvpTlzgwpMadison HealthGlucose [Mass/Vol]87 mg/dL Zkjzpt21-56KgtCamcmuMadison HealthGlucose [Mass/Vol]97 mg/lPVsyuhn16-45 [facility] HospitalPOTASSIUMon 40-01-7005Jxgicroio [Moles/Vol]3.8 mmol/L Normal3.5-5.0[facility] Medical CenterComment on above:Performed By: #### 2823- 3 ####[facility] ([id number])[address] [place] [address] Potassium [Moles/Vol]4.1 mmol/LNormal3.5-5.0ProMadison HealthComment on above:Performed By: #### 2823-3 ####[facility] ([id number])[address] [place], [place] [address]OYJFLMBMMIWOam 04-20-2023 Triglyceride [Mass/Vol]335 mg/hETais03-695FunLriyaoMadison HealthComment on above:Performed By: #### CBCA, CMP ####[facility] ([id number])[address] [place], [place] [address]#### 2571-8 ####[facility] ([id number])[address] [facility], [address], [place] [address]OP CHEST 1 VWon 12-80-2753KS CHEST 1 VWXR CHEST 1 VW Clinical [...] Neely MD on 04/20/2023 5:33 AMNormalKettering Health – Soin Medical CenterARTERIAL BLOOD GASon 17-10-3765XVIVL'S TESTPassNormalKettering Health – Soin Medical CenterComment on above:Performed By: #### ABG #### [facility] ([id number]) [address] [place], [place] [address]ADCC,DEFICIT1.0 MMOL/LNormal0.0-2.0[facility] Comment on above:Performed By: #### ABG #### [facility] ([id number]) [address] [place] [address]Caqu huikgcjrsyc63.6 [degF]Wjzctf22.0[facility] Comment on above:Performed By: #### ABG #### [facility] ([id number]) [address] [place] [address]OHA3 (Bld) [Moles/Vol]24.2 mmol/BFhrhjd24-73NdeHhdjfhMadison HealthComment on above:Performed By: #### ABG #### [facility] ([id number]) [address] [place] [address]ATXD. O2 CONC.40 %NormalProMadison HealthComment on above:Performed By: #### ABG #### [facility] ([id number]) [address] [place], [place] [address]Qonaae (Bld) [Partial pressure]69 mm[Hg]Jih05-963IzsYojpgjMadison HealthComment on above:Performed By: #### ABG #### [facility] ([id number]) [address] [place], [place] [address]Chadwa saturation in Blood93.0 %Normal>90ProMadison HealthComment on above:Performed By: #### ABG #### [facility] ([id number]) [address] [place], [place] [address]QNZVXM SOURCEVentNormalProMadison HealthComment on above:Performed By: #### ABG #### [facility] ([id number]) [address] [place], [place] [address]MMK515.9 VYOZTlykqc43-90CnbKnvykv [facility] HospitalComment on above:Performed By: #### ABG #### [facility] ([id number]) [address] [place], [place] [address]oV (Bld)7.371 [pH]Normal7.350-7.450ProMadison Health Comment on above:Performed By: #### ABG #### [facility] ([id number]) [address] [place], [place] [address]HTPPHU SITELRadNormalKettering Health – Soin Medical CenterComment on above: Performed By: #### ABG #### [facility] ([id number]) [address] [place], [place] [address]HBCUDE TYPEARTERIALNormalProMadison HealthComment on above:Performed By: #### ABG #### [facility] ([id number]) [address] [place], [place] [address]QQO AND AUTO DIFFon 65-97-8726TKTJKZPW BASOPHIL0.0 X10E9/LNormal 0.0-0.2[facility] HospitalComment on above:Performed By: #### ABG #### [facility] ([id number]) [address] [place], [place] [address]RRBPIAGN NEUTROPHIL3.7 X10E9/LNormal1.5-6.6ProMadison HealthComment on above:Performed By: #### ABG #### [facility] ([id number]) [address] [place], [place] [address]Oigqzgkem/100 WBC (Bld)0.3 %NormalKettering Health – [facility]in Medical Center Comment on above:Performed By: #### ABG #### [facility] ([id number]) [address] [place], [place] [address]Bbdyruoolse (Bld) [#/Vol]0.0 10*3/uLNormal0.0-0.4[facility] CenterComment on above:Performed By: #### ABG #### [facility] ([id number]) [address] [place], [place] [address]Tccshgtkniy/100 WBC (Bld)0.8 %[facility] Comment on above:Performed By: #### ABG #### [facility] ([id number]) [address] [place], [place] [address]Udmtygditrt distribution width (RBC) [Ratio]21.6 %High11.5-15.0 [facility] Medical CenterComment on above:Performed By: #### ABG #### [facility] ([id number]) [address] [place], [place] [address]Grivbiqxog (Bld) [Volume fraction]30.5 %Hsx07-65VuqMnbbygMadison HealthComment on above:Performed By: #### ABG #### [facility] ([id number]) [address] [place], [place] [address]Izimchfgeo (Bld) [Mass/Vol]9.8 g/dLLow11.7-15.5PFirelands Regional Medical Center HospitalComment on above:Performed By: #### ABG #### [facility] ([id number]) [address] [place], [place] [address]Gbealvptckn (Bld) [#/Vol]1.5 10*3/uLNormal1.0-3.5PProMedica Defiance Regional HospitalComment on above:Performed By: #### ABG #### [facility] ([id number]) [address] [place], [place] [address]Kkvmfwbaibk/100 WBC (Bld)26.6 %NormalKettering Health – [facility]in Medical Center Comment on above:Performed By: #### ABG #### [facility] ([id number]) [address] [place] [place], [place] [address]NOK (RBC) [Entitic mass]27.0 xpAoypks18-50OsbMwtuaaMadison HealthComment on above:Performed By: #### ABG #### [facility] ([id number]) [address] [place] [place], [place] [address]MRRR (RBC) [Mass/Vol]32.1 g/xTKtuttc82-63AweEmllcoMadison HealthComment on above:Performed By: #### ABG #### [facility] ([id number]) [address] [place] [place], [place] [address]RNV (RBC) [Entitic vol]84 oMTwhpnj64-290UpyHrbmymKettering Health – Soin Medical CenterComment on above:Performed By: #### ABG #### [facility] ([id number]) [address] [facility] [place], [place] [address]Egaxkcqen (Bld) [#/Vol]0.4 10*3/uLNormal0-0.9[facility] Medical CenterComment on above:Performed By: #### ABG #### [facility] ([id number]) [facility] [place] [place], [place] [address]Ttbkoswps/100 WBC (Bld)6.8 %[facility] Comment on above:Performed By: #### ABG #### [facility] ([id number]) [address] [place] [place], [place] [address]Xsbkkeuysih/100 WBC (Bld)65.5 %[facility] Comment on above:Performed By: #### ABG #### [facility] ([id number]) [address] [place], [place] [address]Voljmiyw mean volume (Bld) [Entitic vol]7.5 fLNormal7-12 [facility] HospitalComment on above:Performed By: #### ABG #### [facility] ([id number]) [address] [place], [place] [address]Zyspzusqq (Bld) [#/Vol]328 10*3/fBSsfrgr809-890UdqNqpbih [facility] HospitalComment on above:Performed By: #### ABG #### [facility] ([id number]) [address] [place], [place] [address]VWO COUNT3.62 X10E12/LLow3.80-5.20[facility] Comment on above:Performed By: #### ABG #### [facility] ([id number]) [address] [place], [place] [address]IQB morphology finding Nom (d)REVIEWEDNormalKettering Health – Soin Medical CenterComment on above:Performed By: #### ABG #### [facility] ([id number]) [address] [place], [place] [address]PTA (d) [#/Vol]5.6 10*3/uLNormal4.0-11.0ProMadison HealthComment on above:Performed By: #### ABG #### [facility] ([id number]) [address] [place], [place] [address]IXKOZWXOOOLEH METABOLIC PANELon 19-11-0981Hkvicrw [Mass/Vol]2.4 g/dLLow3.2-5.3PProMedica Defiance Regional HospitalComment on above:Performed By: #### ABG #### [facility] ([id number]) [address] [place], [place] [address]ZPS [Catalytic activity/Vol]62 U/SZxhpcq17-375BenAtmdbpKettering Health – Soin Medical CenterComment on above:Performed By: #### ABG #### [facility] ([id number]) [address] [place], [place] [address]UXZ [Catalytic activity/Vol]16 U/LNormal0-31ProMedJ.W. Ruby Memorial HospitalComment on above:Performed By: #### ABG #### [facility] ([id number]) [address] [place], [place] [address]Qvlld gap [Moles/Vol]6 mmol/LNormal5-15ProMadison HealthComment on above:Performed By: #### ABG #### [facility] ([id number]) [address] [place], [place] [address]HMK [Catalytic activity/Vol]18 U/LNormal0-41ProMadison HealthComment on above:Performed By: #### ABG #### [facility] ([id number]) [address] [place], [place] [address]Ymlywykwk [Mass/Vol]0.5 mg/dLNormal0.3-1.2PProMedica Defiance Regional HospitalComment on above:Performed By: #### ABG #### [facility] ([id number]) [address] [facility] [address] [place], [place] [address]Noiivvk [Mass/Vol]8.2 mg/dLLow8.5-10.5PProMedica Defiance Regional Hospital Comment on above:Performed By: #### ABG #### [facility] ([id number]) [address] [place], [place] [address]Youucgom [Moles/Vol]115 mmol/OGkpg45-129FsyVzvokdMadison HealthComment on above:Performed By: #### ABG #### [facility] ([id number]) [address] [place], [place] [address]KO1 [Moles/Vol]25 mmol/MNerzhe65-64MutAqfzrbProMedica Defiance Regional Hospital Comment on above:Performed By: #### ABG #### [facility] ([id number]) [address] [place], [place] [address]Rimbcqbuqf [Mass/Vol]0.97 mg/dLNormal0.40-1.00ProMadison HealthComment on above:Result Comment: METHOD TRACEABLE TO IDMS STANDARD Performed By: #### ABG #### [facility] ([id number]) [address] [place], [place] [address]RCU/1.73 sq M.predicted among non-blacks MDRD (S/P/Bld) [Vol rate/Area]67 mL/min/{1.73_m2}Normal>59ProMadison HealthComment on above:Result Comment: Reported eGFR is based on the CKD-EPI 2020 equation that does not use a race coefficient.Performed By: #### ABG #### [facility] ([id number]) [address] [place], [place] [address]Rwsaqja [Mass/Vol]98 mg/hOOxasyv64-21YmsCoxgbeKettering Health – Soin Medical Center Comment on above:Performed By: #### ABG #### [facility] ([id number]) [address] [place], [place] [address]Apdaxdanu [Moles/Vol]3.3 mmol/LLow3.5-5.0[facility] Medical CenterComment on above:Performed By: #### ABG #### [facility] ([id number]) [address] [place], [place] [address]Mjvuqmv [Mass/Vol]6.5 g/dLNormal6.0-8.0ProMadison HealthComment on above:Performed By: #### ABG #### [facility] ([id number]) [address] [place], [place] [address]Vorjdl [Moles/Vol]146 mmol/FAqmzet482-702HwpAngwtx [facility] HospitalComment on above:Performed By: #### ABG #### [facility] ([id number]) [address] [place], [place] [address]Hwul nitrogen [Mass/Vol]14 mg/dLNormal5-23ProMadison HealthComment on above:Performed By: #### ABG #### [facility] ([id number]) [address] [place], [place] [address]PWD [Mass/Vol]on 3C REACTIVE PROTEIN6.1 mg/dLHigh 0.000-0.744PProMedica Defiance Regional HospitalComment on above:Performed By: #### ABG #### [facility] ([id number]) [address] [place], [place] [address]Hqdqihi Glucometer (BldC) [Mass/Vol]on 19-52-2474Wtjrwrd [Mass/Vol]176 mg/pWMkdp17-01ZyeOytrrhMadison HealthGlucose [Mass/Vol]92 mg/dL Diibqs28-35MydBccvuvMadison HealthGlucose [Mass/Vol]94 mg/jCEqyfnt87-41 [facility] HospitalGlucose [Mass/Vol]93 mg/mIOtotnw00-04BanTemmidMadison HealthLactate (P yong) [Moles/Vol]on 64-17-2298Afdbzwd [Moles/Vol]0.9 mmol/L Normal0.4-2.0ProMadison HealthComment on above:Performed By: #### ABG #### [facility] ([id number]) [address] [facility] [place], [place] [address]Yhwbxrxyhbp peptide B [Mass/Vol]on 83-74-7284Oziuppparmt peptide B (Bld) [Mass/Vol]25 pg/mLNormal<100.0ProMadison HealthComment on above:Performed By: #### ABG #### [facility] ([id number]) [address] [facility] [place], [place] [address]MISQQTUENnx 03-94-1924Pprzvuzmf [Moles/Vol]3.6 mmol/LNormal 3.5-5.0ProMadison HealthComment on above:Performed By: #### ABG #### [facility] ([id number]) [address] [facility] [place], [place] [id number] CHEST 1 VWon 01-52-2918IJ CHEST 1 VWXR CHEST 1 VW CLINICAL [...] Victor Hugo Kim MD on 04/19/2023 5:41 AMNormalProMadison HealthARTERIAL BLOOD GASon 48-06-4945LPKVX'S TESTNormalProMadison HealthComment on above:Performed By: #### CMP, 08855-5, , CBCA #### [facility] ([id number]) [address] [place], [place] [address]FQPO,DEFICIT1.0 MMOL/LNormal0.0-2.0[facility] Comment on above:Performed By: #### CMP, 95724-8, , CBCA #### [facility] ([id number]) [address] [place], [place] [address]Hgvw ivxtjvgjjry71.6 [degF]Yxzuvv63.0[facility] Comment on above:Performed By: #### XENIA, 18214-8, , CBCA #### [facility] ([id number]) [address] [place], [place] [address]QSM7 (Bld) [Moles/Vol]24.3 mmol/CFyxzxc98-55JidZvvmifMadison HealthComment on above:Performed By: #### CMP, 78758-7, , CBCA #### [facility] ([id number]) [address] [place] [place], [place] [address]WNBT. O2 CONC.50 %NormalProMadison HealthComment on above:Performed By: #### CMP, 99888-2, , CBCA #### [facility] ([id number]) [address] [place], [place] [address]Viryxi (Bld) [Partial pressure]71 mm[Hg]Apb49-288KriPkmpydMadison HealthComment on above:Performed By: #### CMP, 71635-4, , CBCA #### [facility] ([id number]) [address] [place], [place] [address]Lvmfrs saturation in Blood94.0 %Normal>90ProMadison HealthComment on above:Performed By: #### CMP, 92604-6, , CBCA #### [facility] ([id number]) [address] [place], [place] [address]BSOLJX SOURCEVentNormalProMedica [facility] State Tuberculosis HospitalComment on above:Performed By: #### XENIA, 48828-4, , CBCA #### [facility] ([id number]) [address] [place], [place] [address]KSR567.7 YISSVbdvec07-83KsoAqsxmj [facility] Tuberculosis HospitalComment on above:Performed By: #### XENIA, 73691-4, 58106-2, CBCA #### [facility] ([id number]) [address] [place], [place] [address]vO (Bld)7.373 [pH]Normal7.350-7.450ProMadison Health Comment on above:Performed By: #### XENIA, 07200-6, , CBCA #### [facility] ([id number]) [address] [place], [place] [address]KNTMHP SITELRadNormalProMadison HealthComment on above: Performed By: #### XENIA, 97891-5, , CBCA #### [facility] ([id number]) [address] [place], [place] [address]NNPLBM TYPEARTERIALNormalProMadison HealthComment on above:Performed By: #### XENIA, 84229-2, , CBCA #### [facility] ([id number]) [address] [place], [place] [address]YVY AND AUTO DIFFon 28-33-9363WAMAPASO BASOPHIL0.0 X10E9/LNormal 0.0-0.2[facility] HospitalComment on above:Performed By: #### XENIA, 86957- 0, , CBCA #### [facility] ([id number]) [address] [place], [place] [address]SHTULNZZ NEUTROPHIL2.5 X10E9/LNormal1.5-6.6Pro[facility] HospitalComment on above:Performed By: #### XENIA, 83256-7, , CBCA #### [facility] ([id number]) [address] [facility] [place], [place] [address]Drlpfsuoxnzg Ql (Bld)2+AbnormalNONEProMedica [facility] Comment on above:Performed By: #### CMP, 85438-1, , CBCA #### [facility] ([id number]) [address] [place], [place] [address]Ykvuhwifq/100 WBC (Bld)0.2 %NormalKettering Health – [facility] Comment on above:Performed By: #### CMP, 83201-9, , CBCA #### [facility] ([id number]) [address] [place] [address]Ondhstvlrpl (Bld) [#/Vol]0.0 10*3/uLNormal0.0-0.4[facility] Soin Medical CenterComment on above:Performed By: #### XENIA, 75132-6, , CBCA #### [facility] ([id number]) [address] [place], [place] [address]Autxdnrbjwt/100 WBC (Bld)0.1 %NormalKettering Health – Soin Medical Center Comment on above:Performed By: #### XENIA, 84920-3, , CBCA #### [facility] ([id number]) [address] [place], [place] [address]Erhbsfcvkrp distribution width (RBC) [Ratio]22.1 %High11.5-15.0 ProMFisher-Titus Medical CenterComment on above:Performed By: #### CMP, 01093-6, , CBCA #### [facility] ([id number]) [address] [place], [place] [address]Alhjkytgxj (Bld) [Volume fraction]31.1 %Gnt31-58ZuoQsjulxKettering Health – Soin Medical CenterComment on above:Performed By: #### CMP, 47550-3, , CBCA #### [facility] ([id number]) [address] [place], [place] [address]Zjwsmlksvs (Bld) [Mass/Vol]9.9 g/dLLow11.7-15.5PProMedica Defiance Regional HospitalComment on above:Performed By: #### XENIA, 77586-1, , CBCA #### [facility] ([id number]) [address] [place], [place] [address]Otbpqqmzlrr (Bld) [#/Vol]1.2 10*3/uLNormal1.0-3.5PProMedica Defiance Regional HospitalComment on above:Performed By: #### CMP, 51974-0, , CBCA #### [facility] ([id number]) [address] [place], [place] [address]Nhvumvkallk/100 WBC (Bld)30.6 %NormalKettering Health – Soin Medical Center Comment on above:Performed By: #### XENIA, 95482-7, , CBCA #### [facility] ([id number]) [address] [place], [place] [address]SHP (RBC) [Entitic mass]27.0 mxIfkkmb10-90GjiXybedrKettering Health – Soin Medical CenterComment on above:Performed By: #### XENIA, 06366-9, , CBCA #### [facility] ([id number]) [address] [place], [place] [address]LDKQ (RBC) [Mass/Vol]31.8 g/pKUew32-88AjiMsbefpKettering Health – Soin Medical Center Comment on above:Performed By: #### XENIA, 64887-7, , CBCA #### [facility] ([id number]) [address] [place], [place] [address]UDA (RBC) [Entitic vol]85 sYPxbywa73-142ZlqFawzciKettering Health – Soin Medical CenterComment on above:Performed By: #### CMP, 70636-4, 40639-6, CBCA #### [facility] ([id number]) [address] [place], [place] [address]Bvuoccwlz (Bld) [#/Vol]0.3 10*3/uLNormal0-0.9ProMadison HealthComment on above:Performed By: #### CMP, 86949-5, , CBCA #### [facility] ([id number]) [address] [place], [place] [address]Uncelekql/100 WBC (Bld)7.4 %NormalKettering Health – Soin Medical Center Comment on above:Performed By: #### CMP, 36000-8, 05806-2, CBCA #### [facility] ([id number]) [address] [facility] [place], [place] [address]Iaeedunsvpf/100 WBC (Bld)61.7 %NormalKettering Health – Soin Medical Center Comment on above:Performed By: #### CMP, 92476-7, , CBCA #### [facility] ([id number]) [address] [facility] [place], [place] [address]Wrfeglbp mean volume (Bld) [Entitic vol]7.5 fLNormal7-12 ProMedicWayne HealthCare Main CampusComment on above:Performed By: #### CMP, 94794-2, , CBCA #### [facility] ([id number]) [address] [facility] [place], [place] [address]Vbytuqoia (Bld) [#/Vol]317 10*3/pXJdscfl416-020NafHydece Baypark HospitalComment on above:Performed By: #### CMP, 57112-5, , CBCA #### [facility] ([id number]) [address] [place], [place] [address]YUW COUNT3.65 X10E12/LLow3.80-5.20[facility] Comment on above:Performed By: #### CMP, 79705-2, 90429-8, CBCA #### [facility] ([id number]) [address] [place], [place] [address]KHE (Bld) [#/Vol]4.0 10*3/uLNormal4.0-11.0ProMadison HealthComment on above:Performed By: #### CMP, 05219-1, 71555-6, CBCA #### [facility] ([id number]) [address] [place], [place] [address]YNBFVCLDYSIWT METABOLIC PANELon 27-25-7699Fitekft [Mass/Vol]2.4 g/dLLow3.2-5.3ProMedSouthview Medical Center HospitalComment on above:Performed By: #### CMP, 18621-0, 10450-1, CBCA #### [facility] ([id number]) [address] [place], [place] [address]GAV [Catalytic activity/Vol]64 U/FIxuzhl89-581MfuFqkqzq [facility] HospitalComment on above:Performed By: #### XENIA, 93521-9, , CBCA #### [facility] ([id number]) [address] [place], [place] [address]ZRR [Catalytic activity/Vol]18 U/LNormal0-31ProMedSouthview Medical Center HospitalComment on above:Performed By: #### XENIA, 10335-6, , CBCA #### [facility] ([id number]) [address] [place], [place] [address]Ygmzw gap [Moles/Vol]7 mmol/LNormal5-15ProAdena Health System HospitalComment on above:Performed By: #### CMP, 89457-2, 39432-2, CBCA #### [facility] ([id number]) [address] [place], [place] [address]ENR [Catalytic activity/Vol]20 U/LNormal0-41ProAdena Health System HospitalComment on above:Performed By: #### CMP, 86832-9, 29659-1, CBCA #### [facility] ([id number]) [address] [place], [place] [address]Ctudaoijl [Mass/Vol]0.4 mg/dLNormal0.3-1.2PFirelands Regional Medical Center HospitalComment on above:Performed By: #### CMP, 82924-3, 64751-4, CBCA #### [facility] ([id number]) [address] [place], [place] [address]Ptbmnlu [Mass/Vol]7.0 mg/dLLow8.5-10.5PProMedica Defiance Regional Hospital Comment on above:Performed By: #### XENIA, 54256-3, , CBCA #### [facility] ([id number]) [address] [place], [place] [address]Jfmfbxdz [Moles/Vol]114 mmol/KCmzf50-983KndBsklvsKettering Health – Soin Medical CenterComment on above:Performed By: #### XENIA, 40477-9, , CBCA #### [facility] ([id number]) [address] [place], [place] [address]JI5 [Moles/Vol]25 mmol/CTccwlg27-56TsdUscsanProMedica Defiance Regional Hospital Comment on above:Performed By: #### XENIA, 80098-3, , CBCA #### [facility] ([id number]) [address] [place], [place] [address]Efesuwmkuc [Mass/Vol]0.83 mg/dLNormal0.40-1.00[facility] So[facility] Medical CenterComment on above:Result Comment: METHOD TRACEABLE TO IDMS STANDARD Performed By: #### XENIA, 36698-8, , CBCA #### [facility] ([id number]) [address] [place], [place] [address]FNH/1.73 sq M.predicted among non-blacks MDRD (S/P/Bld) [Vol rate/Area]81 mL/min/{1.73_m2}Normal>59ProMadison HealthComment on above:Result Comment: Reported eGFR is based on the CKD-EPI 2020 equation that does not use a race coefficient.Performed By: #### XENIA, 78581-8, , CBCA #### [facility] ([id number]) [address] [place], [place] [address]Uykctza [Mass/Vol]100 mg/cXAokg98-44OklSjikoxKettering Health – Soin Medical Center Comment on above:Performed By: #### XENIA, 75993-9, , CBCA #### [facility] ([id number]) [address] [place], [place] [address]Xulnjonpk [Moles/Vol]4.7 mmol/LNormal3.5-5.0ProMadison HealthComment on above:Performed By: #### XENIA, 42124-5, , CBCA #### [facility] ([id number]) [address] [place], [place] [address]Yztdtcq [Mass/Vol]6.4 g/dLNormal6.0-8.0ProMadison HealthComment on above:Performed By: #### XENIA, 62536-4, , CBCA #### [facility] ([id number]) [address] [place], [place] [address]Ukkzcg [Moles/Vol]146 mmol/KJesfnw598-716UvxLgxrjl [facility] HospitalComment on above:Performed By: #### XENIA, 40273-6, , CBCA #### [facility] ([id number]) [address] [place], [place] [address]Xmdn nitrogen [Mass/Vol]12 mg/dLNormal5-23ProMadison HealthComment on above:Performed By: #### XENIA, 07099-3, , CBCA #### [facility] ([id number]) [address] [place], [place] [address]Oganica.ionized (Bld) [Moles/Vol]on 45-61-2676FSIYPBXZ ICA4.8 mg/dLNormal4.5-5.3Pro[facility] HospitalComment on above:Performed By: #### XENIA, 61314-3, , CBCA #### [facility] ([id number]) [address] [place], [place] [address]Iazmunk Glucometer (BldC) [Mass/Vol]on 81-72-1663Cagnhcr [Mass/Vol]126 mg/eWGjdl72-90EhkRjnltzMadison HealthGlucose [Mass/Vol]94 mg/dL Erxkjj04-72KpcGttpqzMadison HealthGlucose [Mass/Vol]104 mg/lHTpdf16-89 [facility] HospitalXR CHEST 1 VWon 99-00-6358LO CHEST 1 VWXR CHEST 1 VW Single view chest History: Difficulty breathing, shortness of breath. Covid positive. Comparison: 04/17/2023 Findings: Similar loop configuration left IJ catheter. Similar ET tube. Partially imaged enteric tube. Mediansternotomy. Stable enlarged cardiac silhouette. Bandlike opacity right lower lobe, likely atelectatic. Small effusions. No measurable pneumothorax. Right costophrenic angle excluded from ndtpp-dx-zmtl. Impression: 1. Persistent effusions, with or without underlying pneumonia. 2. Looped configuration left IJ catheter and correlate with function. Finalized by Victor Hugo Gustafson MD on 04/18/2023 5:44 AMNormalKettering Health – Soin Medical CenterARTERIAL BLOOD GASon 17-20-4838EOLIF'S TESTPassNormalKettering Health – Soin Medical CenterComment on above:Performed By: #### XENIA, 75897-7, , CBCA #### [facility] ([id number]) [address] [place], [place] [address]FKYB,DEFICIT1.0 MMOL/LNormal0.0-2.0[facility] Comment on above:Performed By: #### XENIA, 41456-8, 86502-7, CBCA #### [facility] ([id number]) [address] [place] [address]Dfyd poazylpyrij62.6 [degF]Griyct95.0[facility] Comment on above:Performed By: #### XENIA, 23079-2, 13345-9, CBCA #### [facility] ([id number]) [address] [place], [place] [address]YXA6 (Bld) [Moles/Vol]24.3 mmol/NEvqses28-80HxhLylrdkKettering Health – Soin Medical CenterComment on above:Performed By: #### XENIA, 55820-4, 10483-6, CBCA #### [facility] ([id number]) [address] [place], [place] [address]LEGD. O2 CONC.50 %NormalProMadison HealthComment on above:Performed By: #### CMP, 54328-4, 14001-0, CBCA #### [facility] ([id number]) [address] [place], [place] [address]Pjorju (Bld) [Partial pressure]73 mm[Hg]Tsx75-860NpqMkyneaMadison HealthComment on above:Performed By: #### CMP, 11377-6, 12588-4, CBCA #### [facility] ([id number]) [address] [place], [place] [address]Ryonbu saturation in Blood94.0 %Normal>90ProMadison HealthComment on above:Performed By: #### CMP, 66324-8, 89253-0, CBCA #### [facility] ([id number]) [address] [place], [place] [address]MOGAML SOURCEVentNormalKettering Health – Soin Medical CenterComment on above:Performed By: #### CMP, 07488-9, 19555-1, CBCA #### [facility] ([id number]) [address] [place], [place] [address]LCB418.9 UKUHIfboeb51-80OfpOkizku [facility] HospitalComment on above:Performed By: #### CMP, 54197-9, 32528-9, CBCA #### [facility] ([id number]) [address] [place], [place] [address]gR (Bld)7.342 [pH]Low7.350-7.450ProMadison Health Comment on above:Performed By: #### CMP, 36605-3, 68628-2, CBCA #### [facility] ([id number]) [address] [place], [place] [address]EPOQIU SITERRadNormalKettering Health – Soin Medical CenterComment on above: Performed By: #### CMP, 80175-3, 49651-7, CBCA #### [facility] ([id number]) [address] [place], [place] [address]IBSQPS TYPEARTERIALNormalProMadison HealthComment on above:Performed By: #### XENIA, 88858-6, 82191-4, CBCA #### [facility] ([id number]) [address] [place], [place] [address]EFRKK METABOLIC PANLon 21-63-8545Cvokc gap [Moles/Vol]8 mmol/L Normal5-15[facility] So[facility] Medical CenterComment on above:Performed By: #### XENIA, 37752-4, , CBCA #### [facility] ([id number]) [address] [place], [place] [address]Ifpkbvp [Mass/Vol]8.3 mg/dLLow8.5-10.5PProMedica Defiance Regional Hospital Comment on above:Performed By: #### XENIA, 28806-7, 72571-4, CBCA #### [facility] ([id number]) [address] [place], [place] [address]Uaaehsyl [Moles/Vol]114 mmol/XQdgy27-608EnpCebwehKettering Health – Soin Medical CenterComment on above:Performed By: #### XENIA, 71393-9, , CBCA #### [facility] ([id number]) [address] [place], [place] [address]TH1 [Moles/Vol]23 mmol/UCoiibb07-10LhhRfhkdxProMedica Defiance Regional Hospital Comment on above:Performed By: #### XENIA, 30158-6, , CBCA #### [facility] ([id number]) [address] [place], [place] [address]Qfjovoevmf [Mass/Vol]0.96 mg/dLNormal0.40-1.00[facility] So[facility] Medical CenterComment on above:Result Comment: METHOD TRACEABLE TO IDMS STANDARD Performed By: #### XENIA, 76274-3, , CBCA #### [facility] ([id number]) [address] [place], [place] [address]WAV/1.73 sq M.predicted among non-blacks MDRD (S/P/Bld) [Vol rate/Area]68 mL/min/{1.73_m2}Normal>59ProMadison HealthComment on above:Result Comment: Reported eGFR is based on the CKD-EPI 2020 equation that does not use a race coefficient.Performed By: #### XENIA, 19470-6, , CBCA #### [facility] ([id number]) [address] [place], [place] [address]Nhnikwq [Mass/Vol]164 mg/eGHjkn85-80LijAokmheMadison Health Comment on above:Performed By: #### XENIA, 94623-7, , CBCA #### [facility] ([id number]) [address] [place], [place] [address]Jvobwcnri [Moles/Vol]4.3 mmol/LNormal3.5-5.0ProMadison HealthComment on above:Performed By: #### XENIA, 37832-0, , CBCA #### [facility] ([id number]) [address] [place], [place] [address]Krluub [Moles/Vol]145 mmol/ZPuecpj758-946LgoLqvjan [facility] HospitalComment on above:Performed By: #### XENIA, 90375-0, , CBCA #### [facility] ([id number]) [address] [place], [place] [address]Cgsx nitrogen [Mass/Vol]11 mg/dLNormal5-23ProMadison HealthComment on above:Performed By: #### XENIA, 45855-0, , CBCA #### [facility] ([id number]) [address] [place], [place] [address]SDI AND AUTO DIFFon 09-67-7589QUANUEXS BASOPHIL0.0 X10E9/LNormal 0.0-0.2ProMedJ.W. Ruby Memorial HospitalComment on above:Performed By: #### XENIA, 50011- 0, , CBCA #### [facility] ([id number]) [address] [place], [place] [address]WLFCCXEF NEUTROPHIL2.3 X10E9/LNormal1.5-6.6[facility] Medical CenterComment on above:Performed By: #### XENIA, 99062-9, , CBCA #### [facility] ([id number]) [address] [facility] [address] [place], [place] [address]Olmzmeqhesxm Ql (Bld)2+AbnormalNONEProMedica [facility] Comment on above:Performed By: #### XENIA, 45257-2, , CBCA #### [facility] ([id number]) [address] [facility] [place], [place] [address]Ouzjkakjo/100 WBC (Bld)0.3 %NormalKettering Health – Soin Medical Center Comment on above:Performed By: #### XENIA, 33095-8, , CBCA #### [facility] ([id number]) [address] [facility] [place], [place] [address]Debbkfzvhvy (Bld) [#/Vol]0.0 10*3/uLNormal0.0-0.4ProMadison HealthComment on above:Performed By: #### XENIA, 02615-1, , CBCA #### [facility] ([id number]) [address] [facility] [place], [place] [address]Jyayjvqsniy/100 WBC (Bld)0.2 %NormalKettering Health – Soin Medical Center Comment on above:Performed By: #### XENIA, 18075-7, , CBCA #### [facility] ([id number]) [address] [place], [place] [address]Richppjarcc distribution width (RBC) [Ratio]22.2 %High11.5-15.0 ProMedicWayne HealthCare Main CampusComment on above:Performed By: #### XENIA, 82030-3, , CBCA #### [facility] ([id number]) [address] [place], [place] [address]Dstwonfkym (Bld) [Volume fraction]30.6 %Ygf73-97CmqKfnfmrMadison HealthComment on above:Performed By: #### CMP, 55225-9, , CBCA #### [facility] ([id number]) [address] [facility] [place], [place] [address]Zprbzdraab (Bld) [Mass/Vol]9.9 g/dLLow11.7-15.5PProMedica Defiance Regional HospitalComment on above:Performed By: #### CMP, 63083-4, , CBCA #### [facility] ([id number]) [address] [facility] [place], [place] [address]Yloszhnjfzr (Bld) [#/Vol]1.0 10*3/uLNormal1.0-3.5PProMedica Defiance Regional HospitalComment on above:Performed By: #### CMP, 01357-0, , CBCA #### [facility] ([id number]) [address] [facility] [place], [place] [address]Kqwklxxmpnb/100 WBC (Bld)29.2 %NormalProMadison Health Comment on above:Performed By: #### CMP, 88872-3, , CBCA #### [facility] ([id number]) [address] [facility] [place], [place] [address]ROC (RBC) [Entitic mass]27.8 jaUsrahc85-53MauCujfynMadison HealthComment on above:Performed By: #### CMP, 27909-0, , CBCA #### [facility] ([id number]) [address] [facility] [place], [place] [address]VGZO (RBC) [Mass/Vol]32.5 g/xEYanlpj70-34IqgHckfhxMadison HealthComment on above:Performed By: #### CMP, 44164-5, , CBCA #### [facility] ([id number]) [address] [facility] [address] [place], [place] [address]UQF (RBC) [Entitic vol]86 nIAoogix88-266CjwZoydqs [facility] HospitalComment on above:Performed By: #### CMP, 95660-3, , CBCA #### [facility] ([id number]) [address] [place], [place] [address]Njyxilnhn (Bld) [#/Vol]0.2 10*3/uLNormal0-0.9[facility] Medical CenterComment on above:Performed By: #### CMP, 76315-6, 57955-4, CBCA #### [facility] ([id number]) [address] [place], [place] [address]Ccowdgqzo/100 WBC (Bld)5.8 %NormalKettering Health – Soin Medical Center Comment on above:Performed By: #### CMP, 70336-8, 34589-0, CBCA #### [facility] ([id number]) [address] [place], [place] [address]Flkerbvvdoq/100 WBC (Bld)64.5 %NormalKettering Health – Soin Medical Center Comment on above:Performed By: #### CMP, 09815-1, 25809-9, CBCA #### [facility] ([id number]) [address] [place], [place] [address]Zupddrhk mean volume (Bld) [Entitic vol]7.7 fLNormal7-12 [facility] CenterComment on above:Performed By: #### CMP, 97074-5, , CBCA #### [facility] ([id number]) [address] [place], [place] [address]Enxvqtiqp (Bld) [#/Vol]295 10*3/wIEflank952-405VxfHzwimp [facility] HospitalComment on above:Performed By: #### CMP, 57645-4, 91766-6, CBCA #### [facility] ([id number]) [address] [place], [place] [address]TIZ COUNT3.57 X10E12/LLow3.80-5.20[facility] Comment on above:Performed By: #### CMP, 28727-7, 15037-7, CBCA #### [facility] ([id number]) [address] [place], [place] [address]HTB (Bld) [#/Vol]3.6 10*3/uLLow4.0-11.0ProMadison HealthComment on above:Performed By: #### XENIA, 31514-8, , CBCA #### [facility] ([id number]) [address] [place], [place] [address]ZGTXHDNI BASOPHIL0.0 X10E9/LNormal0.0-0.2PProMedica Defiance Regional HospitalComment on above:Performed By: #### CMP, 48998-9, , CBCA #### [facility] ([id number]) [address] [place], [place] [address]ZKMPZUVB NEUTROPHIL2.1 X10E9/LNormal1.5-6.6ProMadison HealthComment on above:Performed By: #### XENIA, 80685-7, , CBCA #### [facility] ([id number]) [address] [place], [place] [address]Cvqoezppbahf Ql (Bld)2+AbnormalNONEPProMedica Defiance Regional Hospital Comment on above:Performed By: #### XENIA, 59432-4, , CBCA #### [facility] ([id number]) [address] [place], [place] [address]Jeyaajydd/100 WBC (Bld)0.3 %NormalKettering Health – Soin Medical Center Comment on above:Performed By: #### XENIA, 59598-3, , CBCA #### [facility] ([id number]) [address] [place], [place] [address]Gevjebrsdfr (Bld) [#/Vol]0.0 10*3/uLNormal0.0-0.4ProMadison HealthComment on above:Performed By: #### CMP, 23222-1, , CBCA #### [facility] ([id number]) [address] [place], [place] [address]Zwsccnuqzny/100 WBC (Bld)0.1 %NormalKettering Health – Soin Medical Center Comment on above:Performed By: #### CMP, 69791-1, , CBCA #### [facility] ([id number]) [address] [place], [place] [address]Xzehpjicadj distribution width (RBC) [Ratio]22.0 %High11.5-15.0 ProMedicWayne HealthCare Main CampusComment on above:Performed By: #### CMP, 30142-1, 86214-1, CBCA #### [facility] ([id number]) [address] [place], [place] [address]Sozuxpjpqg (Bld) [Volume fraction]31.4 %Hjs37-11YeaPicqzyMadison HealthComment on above:Performed By: #### CMP, 34627-4, , CBCA #### [facility] ([id number]) [address] [place], [place] [address]Xcfltzkmau (Bld) [Mass/Vol]10.2 g/dLLow11.7-15.5PProMedica Defiance Regional HospitalComment on above:Performed By: #### [facility], 07253-4, , CBCA #### [facility] ([id number]) [address] [place], [place] [id number] (Bld) [#/Vol]0.9 10*3/uLLow1.0-3.5PProMedica Defiance Regional HospitalComment on above:Performed By: #### CMP, 91480-9, , CBCA #### [facility] ([id number]) [address] [place], [place] [id number]/100 WBC (Bld)28.7 %NormalKet[facility] Comment on above:Performed By: #### CMP, 30214-8, , CBCA #### [facility] ([id number]) [address] [place], [place] [id number] (RBC) [Entitic mass]27.4 dlAugoac74-62KqrRuurnkMadison HealthComment on above:Performed By: #### CMP, 08520-4, 61343-8, CBCA #### [facility] ([id number]) [address] [place], [place] [id number] (RBC) [Mass/Vol]32.4 g/pDMxfdxi38-35YquQzsdnlMadison HealthComment on above:Performed By: #### CMP, 88647-8, 63550-2, CBCA #### [facility] ([id number]) [address] [place], [place] [id number] (RBC) [Entitic vol]84 iCZxwijr22-912TzaSuctkm Baypark HospitalComment on above:Performed By: #### CMP, 39205-3, , CBCA #### [facility] ([id number]) [address] [place], [place] [id number] (Bld) [#/Vol]0.2 10*3/uLNormal0-0.9[facility] Medical CenterComment on above:Performed By: #### CMP, 34311-6, , CBCA #### [facility] ([id number]) [address] [place], [place] [id number]/100 WBC (Bld)6.9 %[facility] Comment on above:Performed By: #### CMP, 82154-8, 09576-4, CBCA #### [facility] ([id number]) [address] [place], [place] [id number]/100 WBC (Bld)64.0 %[facility] Comment on above:Performed By: #### CMP, 35687-9, 50055-3, CBCA #### [facility] ([id number]) [address] [place], [place] [id number] mean volume (Bld) [Entitic vol]7.8 fLNormal7-12 [facility]icWay[facility] HealthCare Main CampusComment on above:Performed By: #### CMP, 16875-8, 97800-2, CBCA #### [facility] ([id number]) [address] [place], [place] [address]Iorqejudl (Bld) [#/Vol]301 10*3/hOEtcwul086-325MwqJxjqke Baypark HospitalComment on above:Performed By: #### [place], 26492-7, 61033-9, CBCA #### [facility] ([id number]) [address] [place], [place] [id number] COUNT3.72 X10E12/LLow3.80-5.20ProMadison Health Comment on above:Performed By: #### [place], 47642-9, 31142-6, CBCA #### [facility] ([id number]) [address] [place], [place] [address]VUS (Bld) [#/Vol]3.3 10*3/uLLow4.0-11.0ProMadison HealthComment on above:Performed By: #### [place], 83091-0, , CBCA #### [facility] ([id number]) [address] [place], [place] [address]IFINBDTAUVPSV METABOLIC PANELon 66-40-3244Rpvdjxj [Mass/Vol]2.5 g/dLLow3.2-5.3PProMedica Defiance Regional HospitalComment on above:Performed By: #### [place], 04459-4, , CBCA #### [facility] ([id number]) [address] [place], [place] [id number] [Catalytic activity/Vol]68 U/MHhfkax43-589NsdZfuylbMadison HealthComment on above:Performed By: #### [place], 15050-5, 67291-3, CBCA #### [facility] ([id number]) [address] [place], [place] [address]LPM [Catalytic activity/Vol]21 U/LNormal0-31PProMedica Defiance Regional HospitalComment on above:Performed By: #### [place], 01657-2, 90172-8, CBCA #### [facility] ([id number]) [address] [place], [place] [address]Xcsby gap [Moles/Vol]5 mmol/LNormal5-15[facility] CenterComment on above:Performed By: #### XENIA, 04229-4, , CBCA #### [facility] ([id number]) [address] [place], [place] [address]CLW [Catalytic activity/Vol]26 U/LNormal0-41ProMadison HealthComment on above:Performed By: #### XENIA, 48979-2, , CBCA #### [facility] ([id number]) [address] [place], [place] [address]Dkzdkqdih [Mass/Vol]0.5 mg/dLNormal0.3-1.2PProMedica Defiance Regional HospitalComment on above:Performed By: #### XENIA, 30683-4, , CBCA #### [facility] ([id number]) [address] [place], [place] [address]Ckuctin [Mass/Vol]8.2 mg/dLLow8.5-10.5PProMedica Defiance Regional Hospital Comment on above:Performed By: #### XENIA, 73005-7, , CBCA #### [facility] ([id number]) [address] [place], [place] [address]Sxcfrxqy [Moles/Vol]116 mmol/UEmhe82-645IeoQlyjxqMadison HealthComment on above:Performed By: #### XENIA, 71397-6, , CBCA #### [facility] ([id number]) [address] [place], [place] [address]DS1 [Moles/Vol]25 mmol/MKfpeic73-57YngVzlpbqProMedica Defiance Regional Hospital Comment on above:Performed By: #### XENIA, 84181-6, , CBCA #### [facility] ([id number]) [address] [place], [place] [address]Lrpjvpedbu [Mass/Vol]0.92 mg/dLNormal0.40-1.00ProMadison HealthComment on above:Result Comment: METHOD TRACEABLE TO IDMS STANDARD Performed By: #### XENIA, 53212-6, , CBCA #### [facility] ([id number]) [address] [place], [place] [address]UUF/1.73 sq M.predicted among non-blacks MDRD (S/P/Bld) [Vol rate/Area]71 mL/min/{1.73_m2}Normal>59ProMadison HealthComment on above:Result Comment: Reported eGFR is based on the CKD-EPI 2020 equation that does not use a race coefficient.Performed By: #### XENIA, 71503-9, , CBCA #### [facility] ([id number]) [address] [place], [place] [address]Efklild [Mass/Vol]109 mg/aXLlgz31-00LjlBpcjiyKettering Health – Soin Medical Center Comment on above:Performed By: #### XENIA, 59957-2, , CBCA #### [facility] ([id number]) [address] [place], [place] [address]Wamlafmtw [Moles/Vol]3.6 mmol/LNormal3.5-5.0[facility] So[facility] Medical CenterComment on above:Performed By: #### XENIA, 22933-0, , CBCA #### [facility] ([id number]) [address] [place], [place] [address]Awxhquz [Mass/Vol]6.6 g/dLNormal6.0-8.0[facility] Medical CenterComment on above:Performed By: #### XENIA, 76275-9, , CBCA #### [facility] ([id number]) [address] [place], [place] [address]Sopqwr [Moles/Vol]146 mmol/SStuxvi583-042FefCyunuk Baypark HospitalComment on above:Performed By: #### XENIA, 30363-2, , CBCA #### [facility] ([id number]) [address] [place], [place] [id number] nitrogen [Mass/Vol]10 mg/dLNormal5-23ProMadison HealthComment on above:Performed By: #### XENIA, 89645-9, , CBCA #### [facility] ([id number]) [address] [place], [place] [address]Ysfkfas.ionized (Bld) [Moles/Vol]on 29-05-7552BXJTPEDR ICA4.8 mg/dLNormal4.5-5.3[facility] Tuberculosis HospitalComment on above:Performed By: #### XENIA, 16664-6, , CBCA #### [facility] ([id number]) [address] [place], [place] [address]Drwsamc Glucometer (BldC) [Mass/Vol]on 06-40-5599Nyptwps [Mass/Vol]111 mg/vNFepi20-06LafUncwqbMadison HealthGlucose [Mass/Vol]105 mg/rLVnhy19-02DxxEbtuanMadison HealthMAGNESIUMon 10-26-5948Oealyljew [Mass/Vol]2.4 mg/dLNormal1.8-2.6ProMadison HealthComment on above: Performed By: #### XENIA, 90061-9, , CBCA #### [facility] ([id number]) [address] [place], [place] [address]Zquuwitnl [Mass/Vol]2.5 mg/dLNormal1.8-2.6ProMadison HealthComment on above:Performed By: #### XENIA, 58336-2, , CBCA #### [facility] ([id number]) [address] [place], [place] [address]OECHIJFRAPxy 89-27-6093Bmxsmevyu [Mass/Vol]2.5 mg/dLNormal 2.4-4.9ProMadison HealthComment on above:Performed By: #### XENIA, 28322- 0, , CBCA #### [facility] ([id number]) [address] [place], [place] [address]ZOTPCDFDYgn 78-55-6444Tyqoucpeg [Moles/Vol]3.9 mmol/LNormal 3.5-5.0[facility] Medical CenterComment on above:Performed By: #### XENIA, 00987- 0, 02945-7, CBCA #### [facility] ([id number]) [address] [place], [place] [address]TA CHEST 1 VWon 49-55-1725NJ CHEST 1 VWXR CHEST 1 VW CHEST 1 VIEW HISTORY: Acute respiratory failure COMPARISON: 04/16/2023 FINDINGS: Stable lines and tubes. Mild pulmonary vascular congestion/edema. Bibasilar opacities may representatelectasis or pneumonia, improved. No pleural effusions or pneumothorax. IMPRESSION: * Improved bibasilar opacities. No other significant change. Finalized by Dharmesh Graves MD on 04/17/2023 5:44 AMNormalKettering Health – Soin Medical CenterARTERIAL BLOOD GASon 02-84-0418TWTUL'S TESTPassNormalKettering Health – Soin Medical CenterComment on above:Performed By: #### XENIA, 89351-4, 23916-1, CBCA #### [facility] ([id number]) [address] [place], [place] [address]DDRJ,DEFICIT3.0 MMOL/LHigh0.0-2.0[facility] Comment on above:Performed By: #### XENIA, 72372-6, 03660-8, CBCA #### [facility] ([id number]) [address] [place], [place] [address]Qbrg dzjnottewfu63.6 [degF]Uzuedb96.0[facility] Comment on above:Performed By: #### XENIA, 89259-3, 06205-6, CBCA #### [facility] ([id number]) [address] [place], [place] [address]WYV3 (Bld) [Moles/Vol]22.9 mmol/LCyfwjr81-86WdfJgngytMadison HealthComment on above:Performed By: #### XENIA, 20548-0, 98107-2, CBCA #### [facility] ([id number]) [address] [place], [place] [address]WZIX. O2 CONC.60 %NormalProMadison HealthComment on above:Performed By: #### CMP, 12679-5, 06789-1, CBCA #### [facility] ([id number]) [address] [place], [place] [address]Mbhruu (Bld) [Partial pressure]76 mm[Hg]Vvg70-672CfgAiejfa Baypark HospitalComment on above:Performed By: #### CMP, 32001-7, 65093-8, CBCA #### [facility] ([id number]) [address] [place], [place] [address]Xnztom saturation in Blood94.0 %Normal>90ProMadison HealthComment on above:Performed By: #### CMP, 53374-5, 97504-7, CBCA #### [facility] ([id number]) [address] [place], [place] [address]LOGIAD SOURCEVentNormalProMadison HealthComment on above:Performed By: #### CMP, 77822-5, 38285-8, CBCA #### [facility] ([id number]) [address] [place], [place] [address]DDK731.7 ZIHRImhchw76-17ZhoXcggpe Baypark HospitalComment on above:Performed By: #### CMP, 51784-5, 54997-9, CBCA #### [facility] ([id number]) [address] [place], [place] [address]yY (Bld)7.336 [pH]Low7.350-7.450ProMadison Health Comment on above:Performed By: #### CMP, 95274-4, 95529-6, CBCA #### [facility] ([id number]) [address] [place], [place] [address]CBFJVX SITELRadNormalProMadison HealthComment on above: Performed By: #### CMP, 22529-8, 78503-4, CBCA #### [facility] ([id number]) [address] [place], [place] [address]IKLEBW TYPEARTERIALNormalProMadison HealthComment on above:Performed By: #### XENIA, 36011-2, , CBCA #### [facility] ([id number]) [address] [place], [place] [address]XVF AND AUTO DIFFon 85-24-9686VXWRAGCQ BASOPHIL0.0 X10E9/LNormal 0.0-0.2PProMedica Defiance Regional HospitalComment on above:Performed By: #### XENIA, 58097 0, , CBCA #### [facility] ([id number]) [address] [place], [place] [address]RFYTXPKV NEUTROPHIL3.2 X10E9/LNormal1.5-6.6[facility] Medical CenterComment on above:Performed By: #### XENIA, 05240-1, , CBCA #### [facility] ([id number]) [address] [place], [place] [address]Fypcecpmwqqx Ql (Bld)2+AbnormalNONEPProMedica Defiance [facility] Hospital Comment on above:Performed By: #### XENIA, 89148-3, , CBCA #### [facility] ([id number]) [address] [place], [place] [address]Cphodmsxc/100 WBC (Bld)0.2 %NormalKettering Health – Soin Medical Center Comment on above:Performed By: #### XENIA, 29837-8, , CBCA #### [facility] ([id number]) [address] [place], [place] [address]Jgmsqxnavvx (Bld) [#/Vol]0.0 10*3/uLNormal0.0-0.4[facility] Medical CenterComment on above:Performed By: #### XENIA, 66717-7, , CBCA #### [facility] ([id number]) [address] [place], [place] [address]Rgivvjwzgrl/100 WBC (Bld)0.0 %[facility] Comment on above:Performed By: #### CMP, 75314-7, , CBCA #### [facility] ([id number]) [address] [place], [place] [address]Jbgafskhget distribution width (RBC) [Ratio]22.0 %High11.5-15.0 ProMFisher-Titus Medical CenterComment on above:Performed By: #### CMP, 03402-7, , CBCA #### [facility] ([id number]) [address] [place], [place] [address]Pahxybtbvc (Bld) [Volume fraction]27.6 %Niy00-95GhxXbqjraMadison HealthComment on above:Performed By: #### XENIA, 50359-4, , CBCA #### [facility] ([id number]) [address] [place], [place] [address]Lfciitrsml (Bld) [Mass/Vol]8.8 g/dLLow11.7-15.5PProMedica Defiance Regional HospitalComment on above:Performed By: #### CMP, 18672-6, , CBCA #### [facility] ([id number]) [address] [place], [place] [address]Jltoscwlals (Bld) [#/Vol]0.7 10*3/uLLow1.0-3.5PProMedica Defiance Regional HospitalComment on above:Performed By: #### CMP, 36094-3, , CBCA #### [facility] ([id number]) [address] [place], [place] [address]Vvaoayptvre/100 WBC (Bld)17.8 %NormalKettering Health – Soin Medical Center Comment on above:Performed By: #### CMP, 83106-5, , CBCA #### [facility] ([id number]) [address] [place], [place] [address]AVG (RBC) [Entitic mass]27.3 kvGhmvfs79-35TzmOddvfbMadison HealthComment on above:Performed By: #### CMP, 63309-5, 66334-0, CBCA #### [facility] ([id number]) [address] [place], [place] [address]XKHO (RBC) [Mass/Vol]31.9 g/oNBgx38-74GhjIpteqwKettering Health – Soin Medical Center Comment on above:Performed By: #### CMP, 43879-9, 69326-6, CBCA #### [facility] ([id number]) [address] [place], [place] [address]PVQ (RBC) [Entitic vol]86 mNDoygek80-154TjtScnlfr [facility] HospitalComment on above:Performed By: #### CMP, 44931-5, 52847-5, CBCA #### [facility] ([id number]) [address] [place], [place] [address]Fckjjgvcs (Bld) [#/Vol]0.2 10*3/uLNormal0-0.9[facility] So[facility] Medical CenterComment on above:Performed By: #### CMP, 06919-3, , CBCA #### [facility] ([id number]) [address] [place], [place] [address]Cdzdyshmw/100 WBC (Bld)4.7 %[facility] Comment on above:Performed By: #### CMP, 26904-0, 55190-7, CBCA #### [facility] ([id number]) [address] [place], [place] [address]Gqkmdesohdm/100 WBC (Bld)77.3 %[facility] Comment on above:Performed By: #### CMP, 86872-2, 34997-6, CBCA #### [facility] ([id number]) [address] [place], [place] [address]Xzkuxeyi mean volume (Bld) [Entitic vol]7.6 fLNormal7-12 ProMFisher-Titus Medical CenterComment on above:Performed By: #### CMP, 86617-3, 96374-6, CBCA #### [facility] ([id number]) [address] [place], [place] [address]Wzqpgjbse (Bld) [#/Vol]248 10*3/aHEhoivw018-000RirEkdwyv [facility] HospitalComment on above:Performed By: #### XENIA, 71024-7, , CBCA #### [facility] ([id number]) [address] [place], [place] [address]YDW COUNT3.22 X10E12/LLow3.80-5.20ProMadison Health Comment on above:Performed By: #### XENIA, 61911-6, 90651-2, CBCA #### [facility] ([id number]) [address] [place], [place] [address]XBB (Bld) [#/Vol]4.2 10*3/uLNormal4.0-11.0ProMadison HealthComment on above:Performed By: #### XENIA, 94384-9, , CBCA #### [facility] ([id number]) [address] [place], [place] [address]YVFZNBJSXUTGH METABOLIC PANELon 21-57-9731Qgqbojo [Mass/Vol]2.4 g/dLLow3.2-5.3PProMedica Defiance Regional HospitalComment on above:Performed By: #### XENIA, 74105-3, , CBCA #### [facility] ([id number]) [address] [place], [place] [address]EWT [Catalytic activity/Vol]61 U/TXuoqwj53-990DluMfvmraMadison HealthComment on above:Performed By: #### XENIA, 23007-4, 65758-4, CBCA #### [facility] ([id number]) [address] [place], [place] [address]RUZ [Catalytic activity/Vol]20 U/LNormal0-31PProMedica Defiance Regional HospitalComment on above:Performed By: #### XENIA, 11767-1, 43263-3, CBCA #### [facility] ([id number]) [address] [place], [place] [address]Dytds gap [Moles/Vol]6 mmol/LNormal5-15ProMadison HealthComment on above:Performed By: #### XENIA, 31140-2, , CBCA #### [facility] ([id number]) [address] [place], [place] [address]MDI [Catalytic activity/Vol]25 U/LNormal0-41[facility] Medical CenterComment on above:Performed By: #### XENIA, 76369-7, , CBCA #### [facility] ([id number]) [address] [facility] [place], [place] [address]Qhmajgrbo [Mass/Vol]0.6 mg/dLNormal0.3-1.2PProMedica Defiance Regional HospitalComment on above:Performed By: #### XENIA, 11742-4, , CBCA #### [facility] ([id number]) [address] [place], [place] [address]Sdlziig [Mass/Vol]8.2 mg/dLLow8.5-10.5PProMedica Defiance Regional Hospital Comment on above:Performed By: #### XENIA, 85685-8, , CBCA #### [facility] ([id number]) [address] [place], [place] [address]Utjqvkdf [Moles/Vol]115 mmol/LCahl82-404NreJkddkaMadison HealthComment on above:Performed By: #### XENIA, 10573-0, , CBCA #### [facility] ([id number]) [address] [place], [place] [address]SF5 [Moles/Vol]24 mmol/EKgaoot81-88VgkUahflbProMedica Defiance Regional Hospital Comment on above:Performed By: #### XENIA, 50497-4, , CBCA #### [facility] ([id number]) [address] [place], [place] [address]Eqofprpcuo [Mass/Vol]1.19 mg/dLHigh0.40-1.00ProMadison HealthComment on above:Result Comment: METHOD TRACEABLE TO IDMS STANDARD Performed By: #### XENIA, 77314-9, , CBCA #### [facility] ([id number]) [address] [place], [place] [address]XVB/1.73 sq M.predicted among non-blacks MDRD (S/P/Bld) [Vol rate/Area]52 mL/min/{1.73_m2}Low>59ProMadison HealthComment on above: Result Comment: Reported eGFR is based on the CKD-EPI 2020 equation that does not use a race coefficient.Performed By: #### XENIA, 40066-1, , CBCA #### [facility] ([id number]) [address] [place], [place] [address]Jxuvitv [Mass/Vol]95 mg/uBLaccwe31-29NxyExasfkKettering Health – Soin Medical Center Comment on above:Performed By: #### XENIA, 22346-1, , CBCA #### [facility] ([id number]) [address] [place], [place] [address]Njipqmlsm [Moles/Vol]3.7 mmol/LNormal3.5-5.0ProMadison HealthComment on above:Performed By: #### XENIA, 57576-5, , CBCA #### [facility] ([id number]) [address] [place], [place] [address]Gwjyggj [Mass/Vol]6.0 g/dLNormal6.0-8.0ProMadison HealthComment on above:Performed By: #### XENIA, 85127-5, , CBCA #### [facility] ([id number]) [address] [place], [place] [address]Gzawjz [Moles/Vol]145 mmol/KYqpurx803-975QjpUjaujw [facility] HospitalComment on above:Performed By: #### XENIA, 41139-0, , CBCA #### [facility] ([id number]) [address] [place], [place] [address]Klfq nitrogen [Mass/Vol]8 mg/dLNormal5-23ProMadison HealthComment on above:Performed By: #### XENIA, 32395-3, , CBCA #### [facility] ([id number]) [address] [place], [place] [address]Aiagrxg Glucometer (BldC) [Mass/Vol]on 94-48-9442Ltjhdvo [Mass/Vol]137 mg/tMRpgp50-20UfhWthzouMadison HealthGlucose [Mass/Vol]88 mg/dL Xgfyqu75-80KbePpygfr Baypark HospitalGlucose [Mass/Vol]102 mg/vKZocz08-66 [facility] Tub[facility] HospitalMAGNESIUMon 55-44-1838Jdgycvbfs [Mass/Vol]2.4 mg/dL Normal1.8-2.6ProMadison HealthComment on above:Performed By: #### XENIA, 18677-3, , CBCA #### [facility] ([id number]) [address] [place], [place] [address]Uymmavbgk [Mass/Vol]1.9 mg/dLNormal1.8-2.6ProMadison HealthComment on above:Performed By: #### XENIA, 43697-9, , CBCA #### [facility] ([id number]) [address] [place], [place] [address]TWFDORCIIdz 59-72-9771Vedwuvkkr [Moles/Vol]4.1 mmol/LNormal 3.5-5.0ProMadison HealthComment on above:Performed By: #### XENIA, 45910- 0, , CBCA #### [facility] ([id number]) [address] [place], [place] [address]Allzivkvj [Moles/Vol]3.6 mmol/LNormal3.5-5.0ProMadison HealthComment on above:Performed By: #### XENIA, 16754-1, , CBCA #### [facility] ([id number]) [address] [place], [place] [address]EVYIQZJNMKALrc 74-53-3624Nybahgmrwgeh [Mass/Vol]262 mg/dLHigh 27-150ProMadison HealthComment on above:Performed By: #### CMP, 28780- 0, 04654-9, CBCA #### [facility] ([id number]) [address] [facility] [facility] [place], [place] [id number] CHEST 1 VWon 52-34-6381RR CHEST 1 VWXR CHEST 1 VW HISTORY: [...] Aceves MD on 04/16/2023 5:28 AMNormalKettering Health – Soin Medical CenterARTERIAL BLOOD GASon 91-06-9334FJGCZ'S TESTPassNormalKettering Health – Soin Medical CenterComment on above:Performed By: #### ABG #### [facility] ([id number]) [address] [facility] [facility] [place], [place] [address]YCCU,DEFICIT2.0 MMOL/LNormal0.0-2.0[facility] Comment on above:Performed By: #### ABG #### [facility] ([id number]) [address] [facility] [place], [place] [address]Kwyy vqmfpaagnyp15.6 [degF]Zwwtlq84.0[facility] Comment on above:Performed By: #### ABG #### [facility] ([id number]) [address] [place], [place] [address]WAO6 (Bld) [Moles/Vol]24.5 mmol/OPbplnh22-17IolYotaonMadison HealthComment on above:Performed By: #### ABG #### [facility] ([id number]) [address] [place], [place] [address]OAOL. O2 CONC.60 %NormalProMadison HealthComment on above:Performed By: #### ABG #### [facility] ([id number]) [address] [place], [place] [address]Lotqlf (Bld) [Partial pressure]79 mm[Hg]Rzw59-629VdeRwougcMadison HealthComment on above:Performed By: #### ABG #### [facility] ([id number]) [address] [place], [place] [address]Vdmamb saturation in Blood94.0 %Normal>90ProMadison HealthComment on above:Performed By: #### ABG #### [facility] ([id number]) [address] [place], [place] [address]NDQOZD SOURCEVentNormalProMadison HealthComment on above:Performed By: #### ABG #### [facility] ([id number]) [address] [place], [place] [address]UMK[address].9 LJZKGvrd64-36OwoOhdgxwMadison HealthComment on above:Performed By: #### ABG #### [facility] ([id number]) [address] [place], [place] [address]yH (Bld)7.317 [pH]Low7.350-7.450ProMadison Health Comment on above:Performed By: #### ABG #### [facility] ([id number]) [address] [place], [place] [address]LRYQLB SITELRadNormalProMadison HealthComment on above: Performed By: #### ABG #### [facility] ([id number]) [address] [place], [place] [address]TFXGEX TYPEARTERIALNormalProMadison HealthComment on above:Performed By: #### ABG #### [facility] ([id number]) [address] [place], [place] [address]RGGKY CULTUREon 28-07-5381Inkymunz identified Aer cx Nom (Bld) CULTURE RESULTS NO GROWTH 5 DAYSNormalProMadison HealthBacteria identified Aer cx Nom (Bld)CULTURE RESULTS NO GROWTH 5 DAYSNormalProAdena Health System HospitalCBC AND AUTO DIFFon 04-15-2023 ABSOLUTE BASOPHIL0.0 X10E9/LNormal0.0-0.2PProMedica Defiance Regional HospitalComment on above:Performed By: #### XENIA, 62366-7, , CBCA #### [facility] ([id number]) [address] [facility] [place], [place] [address]TXLSJKZN NEUTROPHIL1.9 X10E9/LNormal1.5-6.6ProMadison HealthComment on above:Performed By: #### XENIA, 87542-1, , CBCA #### [facility] ([id number]) [address] [facility] [place], [place] [address]Nhrvmcuncozj Ql (Bld)2+AbnormalNONEPProMedica Defiance Regional Hospital Comment on above:Performed By: #### XENIA, 52218-8, , CBCA #### [facility] ([id number]) [address] [facility] [place], [place] [address]Rsgjhrlmx/100 WBC (Bld)0.2 %NormalKettering Health [facility] Comment on above:Performed By: #### XENIA, 62013-0, , CBCA #### [facility] ([id number]) [address] [facility] [place], [place] [address]Ncljrapmhab (Bld) [#/Vol]0.0 10*3/uLNormal0.0-0.4[facility] So[facility] Medical CenterComment on above:Performed By: #### XENIA, 61784-6, , CBCA #### [facility] ([id number]) [address] [facility] [facility] [place], [place] [address]Wckacjmrqjf/100 WBC (Bld)0.0 %NormalKettering Health – [facility] Comment on above:Performed By: #### XENIA, 42074-9, , CBCA #### [facility] ([id number]) [address] [place], [place] [address]Mjbwabqmjjk distribution width (RBC) [Ratio]22.0 %High11.5-15.0 ProMedicWayne HealthCare Main CampusComment on above:Performed By: #### XENIA, 30850-8, , CBCA #### [facility] ([id number]) [address] [place], [place] [address]Eseyqsbpto (Bld) [Volume fraction]28.7 %Tak20-13QloTxekwwKettering Health – Soin Medical CenterComment on above:Performed By: #### CMP, 51731-5, 10548-1, CBCA #### [facility] ([id number]) [address] [place], [place] [address]Dcorwvzlnd (Bld) [Mass/Vol]9.1 g/dLLow11.7-15.5PProMedica Defiance Regional HospitalComment on above:Performed By: #### CMP, 23938-9, , CBCA #### [facility] ([id number]) [address] [place], [place] [address]Shwpewyxrxu (Bld) [#/Vol]0.6 10*3/uLLow1.0-3.5PProMedica Defiance Regional HospitalComment on above:Performed By: #### CMP, 28394-5, , CBCA #### [facility] ([id number]) [address] [place], [place] [address]Nmyqynajpkc/100 WBC (Bld)22.8 %NormalKettering Health – [facility]in [facility] Center Comment on above:Performed By: #### CMP, 34190-2, , CBCA #### [facility] ([id number]) [address] [place] [place], [place] [address]WSP (RBC) [Entitic mass]27.1 foBlwgjf85-84CinDaybaoKettering Health – Soin Medical CenterComment on above:Performed By: #### CMP, 53862-4, , CBCA #### [facility] ([id number]) [address] [place], [place] [address]DYJI (RBC) [Mass/Vol]31.8 g/cYWnh92-78KxjJsxrfpKettering Health – Soin Medical Center Comment on above:Performed By: #### CMP, 16864-9, , CBCA #### [facility] ([id number]) [address] [place], [place] [address]LFZ (RBC) [Entitic vol]85 kLTmgced32-385FgfSnycqt Baypark HospitalComment on above:Performed By: #### CMP, 92565-4, 59617-1, CBCA #### [facility] ([id number]) [address] [place], [place] [address]Airpzbnxq (Bld) [#/Vol]0.2 10*3/uLNormal0-0.9ProMadison HealthComment on above:Performed By: #### CMP, 85186-1, 22310-0, CBCA #### [facility] ([id number]) [address] [place], [place] [address]Tmafzwduw/100 WBC (Bld)7.7 %NormalKettering Health – [facility] Center Comment on above:Performed By: #### CMP, 63489-9, 56536-6, CBCA #### [facility] ([id number]) [address] [place], [place] [address]Qryaekmjvpz/100 WBC (Bld)69.3 %NormalKettering Health – [facility] Center Comment on above:Performed By: #### XENIA, 58172-6, , CBCA #### [facility] ([id number]) [address] [place], [place] [address]Phxygzoj mean volume (Bld) [Entitic vol]7.5 fLNormal7-12 [facility] HospitalComment on above:Performed By: #### CMP, 95775-8, 41685-4, CBCA #### [facility] ([id number]) [address] [place], [place] [address]Aywauxzfb (Bld) [#/Vol]222 10*3/gCJlbahg732-282YzeSwkamb Baypark HospitalComment on above:Performed By: #### CMP, 46256-0, 95037-6, CBCA #### [facility] ([id number]) [address] [place] [address]HQN COUNT3.36 X10E12/LLow3.80-5.20Pro[facility] Comment on above:Performed By: #### XENIA, 39729-7, , CBCA #### [facility] ([id number]) [address] [place], [place] [address]MWG (Bld) [#/Vol]2.7 10*3/uLLow4.0-11.0ProMadison HealthComment on above:Performed By: #### CMP, 32478-6, , CBCA #### [facility] ([id number]) [address] [place], [place] [address]VNPFQXDDGYOBA METABOLIC PANELon 14-13-3052Ngolepu [Mass/Vol]2.4 g/dLLow3.2-5.3ProMedJ.W. Ruby Memorial HospitalComment on above:Performed By: #### XENIA, 54109-4, , CBCA #### [facility] ([id number]) [address] [place], [place] [address]ZRJ [Catalytic activity/Vol]63 U/GVlnqup95-571NkyCiqyomMadison HealthComment on above:Performed By: #### XENIA, 51252-3, , CBCA #### [facility] ([id number]) [address] [place], [place] [address]GZG [Catalytic activity/Vol]18 U/LNormal0-31ProMedJ.W. Ruby Memorial HospitalComment on above:Performed By: #### CMP, 04762-8, , CBCA #### [facility] ([id number]) [address] [place], [place] [address]Nctrk gap [Moles/Vol]6 mmol/LNormal5-15ProMadison HealthComment on above:Performed By: #### CMP, 58302-5, , CBCA #### [facility] ([id number]) [address] [place], [place] [address]EAM [Catalytic activity/Vol]24 U/LNormal0-41ProAdena Health System HospitalComment on above:Performed By: #### CMP, 58108-3, 06454-8, CBCA #### [facility] ([id number]) [address] [place], [place] [address]Znsnsqgkw [Mass/Vol]0.7 mg/dLNormal0.3-1.2PProMedica Defiance Regional HospitalComment on above:Performed By: #### XENIA, 55613-1, 27812-3, CBCA #### [facility] ([id number]) [address] [place], [place] [address]Wxyzhin [Mass/Vol]7.8 mg/dLLow8.5-10.5PProMedica Defiance Regional Hospital Comment on above:Performed By: #### XENIA, 13027-2, , CBCA #### [facility] ([id number]) [address] [place], [place] [address]Nanalobe [Moles/Vol]115 mmol/VIlak47-225RtdRhubliMadison HealthComment on above:Performed By: #### XENIA, 84273-8, , CBCA #### [facility] ([id number]) [address] [place], [place] [address]BB6 [Moles/Vol]25 mmol/ZBhjpxu65-07FnsOgtsuiProMedica Defiance Regional Hospital Comment on above:Performed By: #### XENIA, 89173-7, , CBCA #### [facility] ([id number]) [address] [place], [place] [address]Szhtowkdbo [Mass/Vol]1.43 mg/dLHigh0.40-1.00[facility] Soin Medical CenterComment on above:Result Comment: METHOD TRACEABLE TO IDMS STANDARD Performed By: #### XENIA, 86620-1, , CBCA #### [facility] ([id number]) [address] [place], [place] [address]DHU/1.73 sq M.predicted among non-blacks MDRD (S/P/Bld) [Vol rate/Area]42 mL/min/{1.73_m2}Low>59ProMadison HealthComment on above: Result Comment: Reported eGFR is based on the CKD-EPI 2020 equation that does not use a race coefficient.Performed By: #### XENIA, 01117-5, , CBCA #### [facility] ([id number]) [address] [place], [place] [address]Mcxpetb [Mass/Vol]118 mg/qJWwqm08-48KolEoueooKettering Health – Soin Medical Center Comment on above:Performed By: #### XENIA, 72360-5, 91649-7, CBCA #### [facility] ([id number]) [address] [place], [place] [address]Cuxaxfkfu [Moles/Vol]2.8 mmol/LLow3.5-5.0ProMadison HealthComment on above:Performed By: #### XENIA, 42762-1, , CBCMindi #### [facility] ([id number]) [address] [place], [place] [address]Bkljnfq [Mass/Vol]6.0 g/dLNormal6.0-8.0ProMadison HealthComment on above:Performed By: #### XENIA, 44850-9, , CBCA #### [facility] ([id number]) [address] [place], [place] [address]Jsydqx [Moles/Vol]146 mmol/PBmuxkj094-347HgrTwltug Baypark HospitalComment on above:Performed By: #### XENIA, 48722-7, , CBCA #### [facility] ([id number]) [address] [place], [place] [address]Ruhc nitrogen [Mass/Vol]11 mg/dLNormal5-23ProMadison HealthComment on above:Performed By: #### XENIA, 95872-4, , CBCA #### [facility] ([id number]) [address] [place], [place] [address]Lmwyyzm Glucometer (BldC) [Mass/Vol]on 95-50-1495Zflcysy [Mass/Vol]118 mg/oVVdxe89-85RlyKuyekdMadison HealthGlucose [Mass/Vol]83 mg/dL Ieuvfo80-01AbbZcirglMadison HealthGlucose [Mass/Vol]112 mg/zKVvrr49-31 [facility] Medical CenterGlucose [Mass/Vol]128 mg/vAYrjf05-85AwjBlettuMadison HealthLOWER RESPIRATORY CULTUREon 00-76-8949Zvyizuqe identified Respiratory culture Nom (Sput)GRAM STAIN 0 to 1 WHITE BLOOD CELLS/LPF 0 to 1 SQUAMOUS EPITHELIAL CELLS/LPF 0 CILIATED EPITHELIAL CELLS/LPF FEW YEAST CULTURE RESULTS RARE KLEBSIELLA PNEUMONIAE RARE YEAST RARE YEAST VARIANT Jie Garcia, STEAM CLEANER, requested susceptibility on GNR on 04/17/23 Organism: [...] PIPERACIL/TAZOBACTAM S 16 F TOBRAMYCIN S <=1 FSusceptibleProMadison HealthComment on above: Performed By: #### 624-7 #### [facility] ([id number]) [address] [place] [address], [address] [place], [place] [address]KOEAIZYOZzz 77-19-6851Ykdooigwz [Mass/Vol]2.0 mg/dLNormal1.8-2.6 [facility] Soin Medical CenterComment on above:Performed By: #### XENIA, 62463-0, 74204-9, CBCA #### [facility] ([id number]) [address] [place] [id number] PCR NASALon 75-85-2771LUTD DNA HUBERT+probe Ql (Unsp spec) NegativeNormalNEGProMadison HealthComment on above:Performed By: #### XENIA, 83951-2, 32142-7, CBCA #### [facility] ([id number]) [address] [place] [address]UCOAXOEEBhb 75-60-1060Flnazxjdc [Moles/Vol]3.8 mmol/LNormal 3.5-5.0ProMadison HealthComment on above:Performed By: #### XENIA, 49186- 0, 20597-5, CBCA #### [facility] ([id number]) [address] [facility] [place] [address]Lltrjpigb [Moles/Vol]3.5 mmol/LNormal3.5-5.0ProMadison HealthComment on above:Performed By: #### XENIA, 88880-3, 83800-9, CBCA #### [facility] ([id number]) [address] [facility] [place], [place] [address]Cxtopzpnqnrov IA [Mass/Vol]on 09-99-7976SZLDIWBFXHWBC4.57 ng/mL High<0.05ProMadison HealthComment on above:Result Comment: NOTE <0.50 ng/mL - Low risk of severe sepsis and/or septic shock. <2.00 ng/mL - Recommend retesting within 6-24 hours. >2.00 ng/mL - High risk of sepsis and/or septic shock.Performed By: #### XENIA, 01896-3, 11556-1, CBCA #### [facility] ([id number]) [address] [facility] [place], [place] [address]UC CHEST 1 VWon 10-98-7232NJEQ-CoV-2 (COVID-19) RNA HUBERT+probe Ql (Unsp spec)XR CHEST [...] Francisco Javier Aceves MD on 04/15/2023 5:56 AMNormalProMadison HealthXR lumbar spine 6V w bendingon 25-15-4842YJ lumbar spine 6V w bending [facility] Main [address] [address] XRay Report Signed Patient: Monet Recinos MR#: [id number] [birth year] : 1960 Acct:[id number] Age/Sex: 62 / F ADM Date: 12/11/22 [...] Marlyn Samayoa M.D.12/11/2022 10:23 AM Dictation Location: [place] [address] Transcribed By: [facility] 12/11/22 1023 Dictated By: Marlyn Samayoa MD 12/11/22 1020 Signed By: 12/11/22 [facility] head/brain wo/w [place] 31-85-8388UG head/brain wo/w [facility] Main [place] [address] [place] [address] MRI Report Signed Patient: Monet Recinos MR#: [id number] [birth year] : 1960 Acct:[id number] Age/Sex: 61 / F ADM Date: 01/24/22 Loc: MR Room: Type: [facility] CLI Attending Dr: Eric Huerta DO Copies [...] Jamie Oconnor M.D.01/24/2022 3:41 PM Dictation Location: [place] [address] Transcribed By: [facility] 01/24/22 1541 Dictated By: Jamie Oconnor II, MD 01/24/22 1537 Signed By: 01/24/22 [facility].Auto Diff 1on 01-07-2018 Auto Baso %0.6 %Normal0.2-2.0[facility] Health MiamisburgComment on above:Performed By: #### 8318704, 5010945, 9680456284, 9226826673, 3580625737, 039520037, 4410307, 28215303 ####[facility] (DEFAULT)[address] [place] [address] Auto [place] %6 %Normal1-12[facility] HospitalComment on above:Performed By: #### 4311814, 0242026, 7384397541, 7089583126, 7328305894, 549094018, 5903992, 07371950 ####[facility] (DEFAULT)[address] [place] [address] Auto Neut %54 %Bifvpy02-25Ruujqowr HospitalComment on above:Performed By: #### 0033000, 2528886, 2478026310, 1232483380, 9892462391, 036912149, 0620955, 87424827 ####[facility] (DEFAULT)[address] [place], [place] [address] Baso Abs#0.0 l12Imvxcv6.0-0.2[facility]uder HospitalComment on above:Performed By: #### 4964027, 7848425, 4222302829, 9761164074, 7648306437, 411794715, 6203054, 94780283 ####[facility] (DEFAULT)[address] [place], [place] [address] Eos Abs#0.1 h17Dswwtv7.0-0.4[facility] HospitalComment on above:Performed By: #### 1566165, 4987661, 6599780959, 1969180619, 8151495183, 585242622, 4417754, 07417742 ####[facility] (DEFAULT)[address] [place] [address] Eosinophils/100 WBC Auto (Bld)1.4 %Normal0.9-4.0[facility] HospitalComment on above:Performed By: #### 6044543, 8078326, 9485303261, 9147892698, 1841871930, 269746241, 3592965, 53230917 ####[facility] (DEFAULT)[address] [place] [address]Nbfknighhtj Auto #/vol (Bld)2.8 o98Onudyd8.3-2.9 [facility] HospitalComment on above:Performed By: #### 2152007, 4798504, 9022314982, 7110577848, 9220702229, 744765376, 3419373, 62181628 ####[facility] (DEFAULT)[address] [place] [address]Hxpsotoppby/100 WBC Auto (Bld)39 %Qlprgd72-90Pooemfxu HospitalComment on above:Performed By: #### 7831823, 9085090, 6636685375, 9819765887, 0525348310, 791852863, 3827635, 98998400 ####[facility] (DEFAULT)[address] [place] [address] [place] Abs#0.4 v27Iezpgz8.0-0.8[facility] HospitalComment on above:Performed By: #### 6821572, 3613705, 7997382628, 1971103260, 9320864891, 659959489, 5293062, 13007910 ####[facility] (DEFAULT)[address] [place] [address] Neut Abs#3.9 n11Fdyfhq5.5-9.2Magr[address] [facility] HospitalComment on above:Performed By: #### 1702294, 0783832, 1004119981, 7231645617, 0392810034, 431513373, 4615448, 00113832 ####[facility] (DEFAULT)[address] [place] [address] Acet Levelon 88-15-4502Milamnraevwmi mass conc<49Nbwgkb75-43Bgkhvtiv Hospital Comment on above:Performed By: #### 7194407, 1830899, 8499519771, 1179386197, 4365162724, 094921381, 4700864, 76850573 ####[facility] (DEFAULT)[address] [place] [address]GHH w/ Auto Diffon 85-41-3934Bkruxbvferl distribution width Auto Ratio (RBC)17.0 %High11.5-15.0[facility] HospitalComment on above:Performed By: #### 9149334, 1548548, 5042023059, 0981273163, 1502845108, 847001818, 4274199, 06282006 ####[facility] (DEFAULT)[address] [place], [place] [address]Hematocrit Auto Volume Fraction (Bld)41.2 % High33.7-40.4[facility] HospitalComment on above:Performed By: #### 0712398, 3301197, 9016431125, 2617879602, 7291271793, 147672068, 2465565, 35561345 ####[facility] (DEFAULT)[address] [place], [place] [address]Hemoglobin mass conc (Bld)14.0 g/cINnxulr62.3-15.9[facility] HospitalComment on above: Performed By: #### 6819298, 6949910, 6663246904, 8178057453, 4607054658, 167164523, 8223447, 12429872 ####[facility] (DEFAULT)[address] [place], [place] [address]Man Diff?AutoNormalProtestant [facility]aconess Hospital HospitalComment on above:Performed By: #### 4260683, 4907642, 9952262162, 2796332144, 6021452577, 177720099, 9815495, 14819465 ####[facility] (DEFAULT)[address] [place], [place] [address]H Auto Entitic mass (RBC)29 mvXkmvxm67-87Mnvqtwmv HospitalComment on above:Performed By: #### 8971013, 7796596, 3781423914, 1613851075, 7290848845, 660116377, 4180549, 52523522 ####[facility] (DEFAULT)[address] [place], [place] [address]HC Auto mass conc (RBC)34 g/dL Majqub16-58Puwrzrfo HospitalComment on above:Performed By: #### 7224819, 2657725, 5463610604, 3502841741, 4289597302, 937738928, 2362580, 62608780 ####[facility] (DEFAULT)[address] [place], [place] [address]V Auto Entitic volume (RBC)84 yWVtfaml44-638Prkuklpj HospitalComment on above:Performed By: #### 6962778, 9795387, 2051768291, 6938356072, 5180074126, 092781557, 2067965, 84207342 ####[facility] (DEFAULT)[address] [place] [address]Foooxooi mean volume Auto Entitic volume (Bld)9.8 fLNormal6.3-10.2 [facility] HospitalComment on above:Performed By: #### 9682078, 1822684, 3817350966, 6744042765, 4830909282, 235637934, 0604937, 44568508 ####[facility] (DEFAULT)[address] [place] [address]Smbsssrek Auto #/vol (Bld)268 s65Dyktes318-569Fnvmweyw HospitalComment on above:Performed By: #### 9548137, 3433355, 2391708254, 6109717576, 0002374948, 586335180, 9613324, 61116376 ####[facility] (DEFAULT)[address] [place] [address] RBC Auto #/vol (Bld)4.90 j10Yogpsv5.70-5.30[facility] HospitalComment on above: Performed By: #### 2850435, 3100618, 5086586523, 3245768526, 0467249152, 062018567, 0580132, 69097679 ####[facility] (DEFAULT)[address] [place] [address]BJT Auto #/vol (Bld)7.2 m01Khhxcos Interpretation CodeProtestant Deaconess Hospital HospitalComment on above:Performed By: #### 1700540, 6554911, 8732146989, 4791152211, 4303875126, 127208935, 4582879, 12108720 ####[facility] (DEFAULT)[address] [place] [address]BBQ Standardon 70-32-3257Fqct Total0.2 mg/dLLow0.3-1.2Magrmercy health st[facility] HospitalComment on above: Performed By: #### 1171705815, 2589892260 ####[facility] (DEFAULT)[address] [place] [address] 29740oTIQ Non AA>60Invalid Interpretation Code [facility] HospitalComment on above:Performed By: #### 6178500652, 5564776530 ####[facility] (DEFAULT)[address] [place] [address] 83925nROL AA>60 Invalid Interpretation CodeProtestant Deaconess Hospital HospitalComment on above:Result Comment: Chronic Kidney disease could be indicated at eGFRs of less than 60 ml/min/1.73m2. Kidney Failure is indicated at less than 15 ml/min/1.73m2 Performed By: #### 3457570262, 4862290501 ####[facility] (DEFAULT)[address] [place] [address]Jhhullh mass conc3.8 g/dLNormal3.5-5.0 [facility]burgComment on above:Performed By: #### 9956733749, 0323070976 ####[facility] (DEFAULT)[address] [place] [address]897 Albumin/Globulin mass ratio1.1 {ratio}Low1.4-2.6[facility] HospitalComment on above:Performed By: #### 3698996850, 1876831325 ####[facility] (DEFAULT)[address] [place] [address]74[address]Ioy Phos81 IU/JBxslng93-41 [facility]burgComment on above:Performed By: #### 9749875890, 5133898983 ####[facility] (DEFAULT)[address] [place] [address] 24727QNV/SGPT 15.0 IU/TQaninv01.0-54.0[facility] HospitalComment on above:Performed By: #### 8721693453, 2876870121 ####[facility] (DEFAULT)[address] [place] [address] 635[address]Dzfdz gap 3 molar conc13.0 mmol/LNormal5.0-19.0[facility] HospitalComment on above:Performed By: #### 7561652628, 4019494236 ####[facility] (DEFAULT)[address] [place] [address] 38[address]IMZ/SGOT18 IU/LNormal 15-41[facility]amisburgComment on above:Performed By: #### 7838714910, 8946070259 ####[facility] (DEFAULT)[address] [place] [address]Gergvbm mass conc8.8 mg/dLLow8.9-10.3[facility] HospitalComment on above:Performed By: #### 3960200373, 1212641497 ####[facility] (DEFAULT)[address] [place] [address] 039[address]Xhnzhkna molar xlql641 mmol/MDurbua845-966Mhllmpts Hospital Comment on above:Performed By: #### 1677806554, 0446355633 ####[facility] (DEFAULT)[address] [place] [address] 82728EK1 molar conc23 mmol/LNormal 21-32[facility] MiamisburgComment on above:Performed By: #### [id number], 2375795055 ####[facility] (DEFAULT)[address] [place] [address] Creatinine mass conc0.77 mg/dLNormal0.60-1.30[facility] MiamisburgComment on above: Performed By: #### 4084302832, 3222767191 ####[facility] (DEFAULT)[address] [place] [address] 99271Zjvjedat Calculated mass conc (S)3.6 g/dL Normal1.5-4.3[facility] HospitalComment on above:Performed By: #### 6056856891, 2333318324 ####[facility] (DEFAULT)[address] [place] [address] 338[address]Govkxth mass conc91.0 mg/oVGropap11.0-118.0[facility] MiamisburgComment on above:Performed By: #### 6538069526, 3425475389 ####[facility] (DEFAULT)[address] [place] [address] 41553Sdwittgnah590 mOsm/LInvalid Interpretation CodeProtestant Deaconess Hospital HospitalComment on above:Performed By: #### 4133089887, [id number] ####[facility] (DEFAULT)[address] [place] [address] 53[address]Cdwljrspu molar conc4.0 mmol/LNormal3.6-5.1[facility] Comment on above:Performed By: #### 3963252640, 5755577205 ####[facility] (DEFAULT)[address] [place] [address] 06867Qgqdvqu mass conc7.4 g/dLNormal 6.5-8.1MAdena Fayette Medical CenterComment on above:Performed By: #### 0531037916, 1938616538 ####[facility] (DEFAULT)[address] [place] [address] 34988Vtovxz molar xxkx969.0 mmol/YAnvrxi117.0-144.0[facility]amisburgComment on above:Performed By: #### 1911429289, 5339764859 ####[facility] (DEFAULT)[address] [place] [address] 70772Jkzb nitrogen mass conc17 mg/dL Normal8-26[facility] MiamisburgComment on above:Performed By: #### 4013763319, 9757891324 ####[facility] (DEFAULT)[address] [place] [address] 78821Uuam nitrogen/Creatinine mass ratio22.0 mg/mgHigh4.6-16.2[facility] Comment on above:Performed By: #### 5341586314, 7113206455 ####[facility] (DEFAULT)[address] [place] [address] 04791KU Clinical Summaryon 20-42-5469FE Clinical SummaryKettering Health [facility] - Emergency [address] [place] [address] ed Clinical SummaryPERSON INFORMATIONName: MONET RECINOS Age: 57 Years Sex: FEMALEDOB: [birth year] MRN: Acct#:Visit Reason: General medical; MEDICAL CLEARENCE Arrival: 01/07/18 13:27:00 Discharge: 01/07/18 15:22:00LOS: 000 01:55 Check In: 01/07/18 13:27:00 Checkout:01/07/18 15:22:00[address] [facility] [address]EOI: Provider, NonePROVIDER INFORMATIONProvider Role Assigned UnassignedRylee Gaxiola [...] Complaint from Nursing Triage Note : Chief Fitbiqgyp45/13/18 13:28 EDT Chief Complaint sent from [facility] for medical clearance, depressed/anxiety .History of Present Bhngurs89-bidj-qum female presents to the emergency department for medical clearance for psychiatr ic admission. Patient is feeling very depressed. She states she feels like she just wants to go to sleep and never wake up. She was seen at [facility] and will be admitted to [address]Review of SystemsConstitutional symptoms: No fever, no [...] suicide risk.Documents reviewed: Emergency department nurses' notes, [facility] Counselling.Orders Launch OrdersLaboratory:Urinalysis with Culture, if [...] Lab Collect.Results review: Lab results : Lab Wzeubjtut11/13/18 14:19 EDT Sodium Level 138.0 mmol/L Potassium [...] % Auto Lymph % 39 % Auto [place] % 6 % Auto Eos % 1.4 % Auto Baso % 0.6 % Neut Abs# 3.9 x103/mcL Lymph Abs# 2.8 x103/mcL [place] Abs# 0.4 x103/mcL Eos Abs# 0.1 x103/mcL [...] then he is to be taken to [facility] for psychiatric admission. Patient with very flat [...] She will transport the patient directly to [address] as arrabnged by counsellor and accepted by Dr. Hackett.Impression and PlanDiagnosisSuicidal thoughts (KJD22-JQ R45.851, Discharge, Medical)Depression, major (RUL22-OV F32.9, Discharge, Medical)PlanDisposition: Transfer to other location:Time: 01/07/18 15:05:00, Facility name: [facility], Accepted by: Dr. Hackett, [address] [place] [address], Time 01/07/18 14 :50:00, Referral to [facility].Patient was given the following educational materials: Major Depressive Disorder, Adult.Follow up with: Report directly to [facility] main entrance to admitting office. You will be taken to [address] [place] [address] for admission by hospital personnel 01/07/2018 4:00 PM; .Counseled: Patient, Friend, Regarding diagnosis, Regarding diagnostic results, Regarding treatment plan, Regarding prescription, Patient indicated understanding of instructions.DISCHARGE INFORMATION:Discharge Disposition: Disch /Transfer to Psychiatric FacilityDischarge Location: [facility] -[facility]dkyPATIENT EDUCATION INFORMATIONInstructions: Major Depressive Disorder, AdultFollow- Up:With: Address: When:Report directly to [facility] main entrance to admitting office. You will be taken to [address] [place] [address] for admission by hospital personnel 01/07/2018 4:00 PMDIAGNOSIS:Depression, major; Suicidal thoughtsPatient Understands:Comment:[facility] - Otheron [id number] Note - [id number] I faxed over patient information at this time to [facility],to Adrian Cordon,for medical clearance[Electronically Signed on: 01/07/2018 14:57 EDT] Familia Robertson[Verified on: 01/07/2018 14:57 EDT] [facility]ilyn [facility] ED Note - Physicianon [id number] Note - PhysicianPatient: MONET RECINOS : 57 years Sex: FEMALE : 64Associated Diagnoses: Suicidal thoughts; Depression, majorAuthor: Todd Gaxiola InformationTime seen: Date & time 01/07/18 13:40:00.History source: Patient.Arrival mode: Private vehicle.History limitation: None.Additional information: Chief Complaint from Nursing Triage Note : Chief Uxpuopqbi34/13/18 13:28 EDT Chief Complaint sent from [facility] for medical clearance, depressed/anxiety .History of Present [id number] female presents to the emergency department for medical clearance for psychiatric admission. Patient is feeling very depressed. She states she feels like she just wants to go to sleep and never wake up. She was seen at [facility] and will be admitted to [address]Review of SystemsConstitutional symptoms: No fever, no [...] Depression, suicide risk.Documentsreviewed: Emergency department nurses' notes, [facility].Orders Launch OrdersLaboratory:Urinalysis with Culture, if indicated Standard [...] Lab Collect.Results review: Lab results : Lab Gltddzbur64/13/18 14:19 EDT Sodium Level 138.0 mmol/L Potassium [...] % Auto Lymph % 39 % Auto [place] % 6 % Auto Eos % 1.4 % Auto Baso % 0.6 % Neut Abs# 3.9 x103/mcL Lymph Abs# 2.8 x103/mcL [place] Abs# 0.4 x103/mcL Eos Abs# 0.1 x103/mcL [...] then he is to be taken to [facility] at [facility] for psychiatric admission. Patient with very flat [...] She will transport the patient directly to [address] as arrabnged by counsellor and accepted by Dr. Hackett.Impression and PlanDiagnosisSuicidal thoughts ([id number] R45.851, Discharge, Medical)Depression, major (TMB86-EP F32.9, Discharge, Medical)PlanDisposition: Transfer to other location: Time: 01/07/18 15:05:00, Facility name: [facility], Accepted by: Dr. Hackett, [address] [place] [address], Time 01/07/18 14:50:00, Referral to [facility].Patient was given the following educational materials: Major Depressive Disorder, Adult.Follow up with: Report directly to [facility] main entrance toadmitting office. You will be taken to [address] [place] [address] for admission by hospital personnel 01/07/2018 4:00 PM; .Counseled: Patient, Friend, Regarding diagnosis, Regarding diagnostic results, Regarding treatment plan, Regarding prescription, Patient indicated understanding of instructions.[Electronically Signed on: 01/07/2018 15:18 EDT] Rylee Gaxiola[Electro nically Signed on: 01/07/2018 20:18 EDT] Nadege Fernandez MD[Verified on: 01/07/2018 15:18 EDT] Rylee GaxiolaCorey HospitalED Note-Nursingon [id number] Note-NursingPt is transferred [place] [facility] [place] private vehicle to be admitted to [address] [place] [address] room 1, bed #2. Pt's friendis driving her to [facility].The pt andher friend were instructed to report to [facility] front lobby, admitting department and then the pt. will be escorted to [address] [place] [address] per Security. pt had not beloingins with her at this time but the clothining on her back.[facility] Note-NursingPt sitting on the cart in ER room 4. Upon entering the room the pt did establish eye contact but she is blunted and does not initiate any conversation. She will look at you and she will answer questions. She admits that she just came from [facility] and she states I don't feel right . Pt states she is taking her meds as she is supposed to but she feels like I want to go to sleep and not wake up Pt states she does feel depressed and she does not feel suicidal, she just feel sad. Her SUPPLY AND DISTRIBUTION MANAGER is Dr. Rodriguez and she can not recall her Psychiatrist's name.Her friend brought lto the ER from [facility]. [facility] Patient Education Noteon [id number] Patient Education NoteEducation MaterialsDelaware County Hospital and Behavioral HealthMajor Depressive Disorder, AdultMajor [...] by your health care provider.General instructions? Take nofb-bqu-dutczjz and prescription medicines only as told by [...] This is important.Where to find more information:National [place] on Mental Illness? www.isadora.orgU.S. National [place] of Mental Health? www.[facility].nih.govNational Suicide Prevention Lifeline? 3-129-099-TALK (0453). This is free, 24-hour help.Contact a healthcare [...] Reviewed: 10/22/2016Elsevier Interactive Patient Education ? 2016 [employer].[facility]leness HospitalED Patient Summary on 25-39-1591RB Patient SummaryKettering Health [facility] - Emergency [address] [place], [place] [id number] pATIENT DISCHARGE INSTRUCTIONSPatient InformationName: MONET RECINOS Age: 57 YearsDate of : 64MRN:[id number] For Visit: General medical; MEDICAL CLEARENCEArrival Time: 01/07/18 13:27:00Phone: Primary Care Physician: Provider, NoneAttending Physician: Nadege Fernandez MDComment:Visit Diagnosis:Diagnoses This Visit Depression, major (F32.9) General medical ([id number]) Suicidal thoughts (R46.909)If you received any narcotics, sedation, or any [...] any legal documentsWith: Address: When:Report directly to [facility] main entrance to admitting office. You will be taken to [address] [place] [address] for admission byhospital personnel 01/07/2018 4:00 PMMedication Information:The exam and treatment you received today in the [facility] Emergency Department were for an urgent problem and are not intended as complete care. It is important for you to follow up with a doctor, nurse practitioner, or physician?s wardrobe assistant for ongoing care. If your symptoms [...] number so we can reach you if necessary.[facility] Emergency Departmenthas provided you with a complete list of medications post discharge. Please inform your completion engineer/provider of your visit and for further instruction [...] by your health care provider.General instructions? Take qsjd-tbt-obpkmon and prescription medicines only as told by [...] This is important.Where to find more information:National [place] on Mental Illness? www.isadora.orgU.S. National [place] of Mental Health? www.nimh.nih.govNational Suicide Prevention Lifeline? 7-191-929-TALK (5917). This is free, 24-hour help.Contact a health [...] Reviewed: 10/22/2016Cathi Interactive Patient Education ? 2017 [employer] Viruses or BacteriaWhat?s got you sick?Antibiotics [...] ServicesCenters for Disease Control and Prevention December 2013NoUniversity Hospitals Parma Medical CenterEthanol.on 11-05-2560Kvmqhjt Level<5.1Ukbcas4.0-5.0K[facility] Health MiamisburgComment on above:Performed By: #### [id number], [id number] ####[facility] (DEFAULT)[address] [place] [address] 91142Qspck Redon 99-60-3444Fxjh CollectedYesInvalid Interpretation Galion HospitalComment on above:Performed By: #### [id number], [id number], [id number], [id number], [id number], [id number], [id number], [id number] ####[facility] (DEFAULT)[address] [place] [address] 10973Vtobtcjhtrzo 01-07-2018 Salicylate Lvl<4.2Cjwxlc8.0-30.0[facility] Health MiamisburgComment on above:Result Comment: Salicylate ranges less than 30 mg/dL are considered to be therapeutic. Levels greater than 30 mg/dL are considered toxic and levels greater than 60 mg/dL may be lethal.Performed By: #### [id number], [id number], [id number], [id number], [id number], [id number], [id number], [id number] ####[facility] (DEFAULT)[address] [place] [address] 91333XWC w/ Reflex to FT4on 38-27-2357Imiqagysmsk Qn1.54 mcIU/mLNormal0.45-5.33K[facility] Health MiamisburgComment on above:Result Comment: General Population (males and non- females, aged 21-88) 0.45 - 5.33 Females, 1st Trimester 0.05 - 3.70 Females, 2nd Trimester 0.31 - 4.35 Females, 3rd Trimester 0.41 - 5.18Performed By: #### [id number], [id number] ####[facility] (DEFAULT)[address] [place] [address] 17173Rtxdxuyv Noteon 99-11-7805Hnjpdpeh Note [id number]#1.00OTGTWayne Hospital Triage Panel 12on 87-75-6923Pcocrwg mass [facility] Comment on above:Performed By: #### [id number], [id number] ####[facility] (DEFAULT)[address] [place] [address] 70954Hnlcuu Internal ControlPass [facility]leness HospitalComment on above:Performed By: #### [id number], [id number] ####[facility] (DEFAULT)[address] [place] [address] 57130V Amph ScrNegativeUniversity Hospitals Beachwood Medical Center HospitalComment on above:Performed By: #### [id number], [id number] ####[facility] (DEFAULT)[address] [place] [address] 84547C Carol ScrNegMemorial HospitalComment on above: Performed By: #### [id number], [id number] ####[facility] (DEFAULT)[address] [place] [address] 62581M Benzodia ScrAvita Health System Galion Hospital Comment on above:Performed By: #### [id number], [id number] ####[facility] (DEFAULT)[address] [place] [address] 43262K Cannab ScrnNegativeNormal [facility] Health MiamisburgComment on above:Performed By: #### [id number], [id number] ####[facility] (DEFAULT)[address] [place] [address] 28185Q Cocaine ScrNegSouthwest Memorial Hospital HospitalComment on above:Performed By: #### [id number], [id number] ####[facility] (DEFAULT)[address] [place] [address] 54659E Methadone ScrNegativeNoUC Medical Center HospitalComment on above: Performed By: #### [id number], [id number] ####[facility] (DEFAULT)[address] [place] [address] 12303L Methamp ScrnNegativeNormSt. Vincent Hospital Hospital Comment on above:Performed By: #### [id number], [id number] ####[facility] (DEFAULT)[address] [place] [address] 96981A Opiate ScrNegativeNormal [facility] HospitalComment on above:Performed By: #### [id number], [id number] ####[facility] (DEFAULT)[address] [place] [address] 70708V Oxycod ScrNegativeNormalProtestant Deaconess Hospital HospitalComment on above:Performed By: #### [id number], [id number] ####[facility] (DEFAULT)[address] [place] [address] 18321H Phencyclidine ScrNegativeNormalProtestant Deaconess Hospital HospitalComment on above:Performed By: #### [id number], [id number] ####[facility] (DEFAULT)[address] [place] [address] 14894L Tricyclic Antidepress Scr NegativeNormalProtestant Deaconess Hospital HospitalComment on above:Performed By: #### [id number], [id number] ####[facility] (DEFAULT)[address] [place] [address] 86618Gfasd SourceClean CatchNormalProtestant Deaconess Hospital HospitalComment on above:Performed By: #### [id number], [id number] ####[facility] (DEFAULT)[address] [place] [address] 94619CO w Culture if Ind Standardon 86-00-8365Dexgecgwws UANormalNdgrmercy health st. vincent medical center HospitalComment on above:Performed By: #### [id number], [id number] ####[facility] (DEFAULT)[address] [place] [address] 98383Lbnvi Nom (U)YELLOWInvalid Interpretation CodeMagruder HospitalComment on above:Performed By: #### [id number], [id number] ####[facility] (DEFAULT)[address] [place] [address] 39854Bkaljsw?Not IndicatedInvalid Interpretation CodeMagruder HospitalComment on above:Performed By: #### [id number], [id number] ####[facility] (DEFAULT)[address] [place] [address] 39094Dbrjnso mass conc (U)NegativeInvalid Interpretation Code [facility] HospitalComment on above:Performed By: #### [id number], [id number] ####[facility] (DEFAULT)[address] [place] [address] 33328Jwzpmst Ql (U)NegativeInvalid Interpretation CodeProtestant Deaconess Hospital HospitalComment on above: Performed By: #### [id number], [id number] ####[facility] (DEFAULT)[address] [place] [address] 73997Dkern?Not IndicatedInvalid Interpretation CodeProtestant Deaconess Hospital HospitalComment on above:Performed By: #### [id number], [id number] ####[facility] (DEFAULT)[address] [place] [address] 51691ZB BilirubinNegativeNormalProtestant Deaconess Hospital HospitalComment on above:Performed By: #### [id number], [id number] ####[facility] (DEFAULT)[address] [place] [address] 48094LF BloodNegativeNormalNEGATIVENdgruder HospitalComment on above:Performed By: #### [id number], [id number] ####[facility] (DEFAULT)[address] [place] [address] 10524IO ClarityCLEARNormalCLEAR [facility] HospitalComment on above:Performed By: #### [id number], [id number] ####[facility] (DEFAULT)[address] [place] [address] 63291CR Leuk EstNegativeNormalNEGATIVECorey Hospitaluder HospitalComment on above:Performed By: #### [id number], [id number] ####[facility] (DEFAULT)[address] [place] [address] 97931RU NitriteNegativeNormalNEGATIVEProtestant Deaconess Hospital HospitalComment on above:Performed By: #### [id number], [id number] ####[facility] (DEFAULT)[address] [place] [address] 75688FT pH6.0Invalid Interpretation Code5-8[facility] HospitalComment on above:Performed By: #### [id number], [id number] ####[facility] (DEFAULT)[address] [place] [address] 63153HJ ProteinNegativeNormalNEGATIVEProtestant Deaconess Hospital HospitalComment on above:Performed By: #### [id number], [id number] ####[facility] (DEFAULT)[address] [place] [address] 83855AG Spec Grav>=1.030Invalid Interpretation Code 1.001-1.035[facility] HospitalComment on above:Performed By: #### [id number], [id number] ####[facility] (DEFAULT)[address] [place] [address] 24052SF Urobilinogen0.2 mg/dLNormal0.2-1.0[facility] HospitalComment on above: Performed By: #### [id number], [id number] ####[facility] (DEFAULT)[address] [place] [address] 48386Nolfu SourceClean CatchNormSt. Vincent Hospital HospitalComment on above:Performed By: #### [id number], [id number] ####[facility] (DEFAULT)[address] [place] [address] 05467 Vital Signs Date TimeVital SignValuePerforming PfyeplytxXbsdixhv55-31-0382 12:10-0400Body zrlsyr426.3 cmRisa Summers MD Work Phone: [facility]10-13-2025 12:10-0400Body mass index (BMI) [Ratio]35.14 kg/m2Risa Summers MD Work Phone: [facility] Ypjctf19-79-2401 12:10-0400Body kgRisa Summers MD Work Phone: [facility]10-13-2025 12:10-0400Diastolic blood uzygtogv16 mm[Hg]Risa Summers MD Work Phone: [facility]10-13-2025 12:10-0400Heart rate 96 /minImad Melina MIJARES Work Phone: [facility]10-13-2025 12:10-1496QuR3% (BldA) [Mass fraction]97 %Risa Summers MD Work Phone: [facility]10-13-2025 12:10-0400Systolic blood mm[Hg]Risa Summers MD Work Phone: [facility]09-09-2025 11:48-0400Body gmanen384.[address]09-09-2025 11:48-0400Body mass index (BMI) [Ratio]36.92 kg/m2Pmh [address] [place], [place] 9065009-09-2025 11:48-0400Body .[address] [place], [place] 9065008-25-2025 13:11-0400Body rbwawd306.[address]08-25-2025 13:11-0400Body mass index (BMI) [Ratio] 36.62 kg/m2Pmh [address] [place], [place] 9065008-25-2025 13:11-0400Body .49 kg Pmh [address] [place], [place] 9065008-21-2025 12:37-0400Body faftmt723.3 cmFaithabby Steiner DO Work Phone: [facility]08-21-2025 12:37-0400Body mass index (BMI) [Ratio]35.66 kg/m2Joabby Perrys DO Work Phone: [facility]08-21-2025 12:37-0400Body vabwpwqiwof66.49 [degF]Rajni Steiner DO Work Phone: [facility]08-21-2025 12:37-0400Body frrogw721.59 kgRajni Perrys DO Work Phone: [facility]08-21-2025 12:37-0400Diastolic blood gjeqdflc64 mm[Hg]Rajni Steiner DO Work Phone: [facility]08-21-2025 12:37-0400Heart rate 88 /minJoabby Perrys DO Work Phone: [facility]08-21-2025 12:37-0400 Respiratory rate20 /minRajni Perrys DO Work Phone: [facility]08-21-2025 12:37-0152KiO4% (BldA) [Mass fraction]95 %Rajni Steiner DO Work Phone: [facility]08-21-2025 12:37-0400Systolic blood zwcwmkap237 mm[Hg]Rajni Steiner DO Work Phone: [facility]08-11-2025 09:21-4055HfK8% (BldA) [Mass fraction]92 %[facility] HospitalComment on above:Performed By: #### VBG #### [facility] MED[facility] CENTERMindi [facility] ([address] [address] YND69-90-3302 13:28-1234UqM9% (BldA) [Mass fraction]94 %[facility] HospitalComment on above:Performed By: #### BMP #### [facility] ([facility]) [address] [place] [address] JZE23-98-8873 07:16-2021UkP1% (BldA) [Mass fraction]100 %[facility] HospitalComment on above:Performed By: #### VBG ####[facility] ([address] [address] CGD89-27-1804 13:57-0400Body .3 cmOdessa Cook APRN-MAXX Work Phone: [facility] Hlmfdg55-14-0572 13:57-0400Body mass index (BMI) [Ratio]37.97 kg/v6FsjsfdOdessa Cook APRN-STEAM CLEANER Work Phone: [facility]1st[facility]ig.[facility] Wietja80-97-2918 13:57-0400Body biyqon069.62 kgOdessa Cook APRN-STEAM CLEANER Work Phone: [facility] Phfoqj67-09-2345 13:57-0400Diastolic blood danigupb43 mm[Hg]Odessa Cook APRN-MAXX Work Phone: [facility]08-04-2025 13:57-0400Heart rate 96 /minOdessa Cook APRN-STEAM CLEANER Work Phone: [facility] Tqgqkg48-95-8288 13:57-0711PdZ0% (BldA) [Mass fraction]92 %Odessa Cook APRN-MAXX Work Phone: [facility] Toynij16-39-7276 13:57-0400Systolic blood dbnsayqr267 mm[Hg]Odessa Cook APRN-MAXX Work Phone: [facility] Clsmgs46-05-2568 14:17-0400Body lkokln750.3 cmRajni Steiner DO Work Phone: [facility] Wmrehc55-94-9104 14:17-0400Body mass index (BMI) [Ratio]40.38 kg/m2Rajni Perrys DO Work Phone: [facility] Fedncs99-63-0689 14:17-0400Body dcwcneuhhix29.4 [degF]Rajni Vickys DO Work Phone: [facility] Livcau24-76-9612 14:17-0400Body emfnsl330.1 kgRajni Perrys DO Work Phone: [facility] Qlllgn67-27-8904 14:17-0400Diastolic blood twcywukb20 mm[Hg]Rajni Steiner DO Work Phone: [facility] Zmopdh06-07-8769 14:17-0400Heart rate 90 /minRajni Perrys DO Work Phone: [facility] Jgefxn27-14-9042 14:17-0400 Respiratory rate20 /minRajni Perrys DO Work Phone: [facility] Rwijsi05-63-1440 14:17-8584DmP5% (BldA) [Mass fraction]92 %Rajni Steiner DO Work Phone: [facility] Terquv51-45-8212 14:17-0400Systolic blood itdjzjgj716 mm[Hg]Rajni Steiner DO Work Phone: [facility] Oonbsn42-66-8030 16:17-0400Body gulnyy522.3 cmJoabby Perrys DO Work Phone: [facility] Iurnzc65-27-5027 16:17-0400Body mass index (BMI) [Ratio]38.5 kg/m2Rajni Perrys DO Work Phone: [facility] Pgmliv20-97-8344 16:17-0400Body .29 [degF]Rajni Steiner DO Work Phone: [facility] Zwbwyr47-16-5316 16:17-0400Body ofkocg245.3 kgRajni Perrys DO Work Phone: [facility] Wyiuoz59-81-2506 16:17-0400Diastolic blood mm[Hg]Rajni Steiner DO Work Phone: [facility] Tuiurn28-41-6436 16:17-0400Heart rate 77 /minRajni Perrys DO Work Phone: [facility] Cfbbqb35-28-2624 16:17-0400 Respiratory rate20 /minRajni Perrys DO Work Phone: [facility] Qfdnmi85-11-4484 16:17-1917NiY4% (BldA) [Mass fraction]94 %Rajni Steiner DO Work Phone: [facility] Fqtxpt09-31-2526 16:17-0400Systolic blood bhyivqdk626 mm[Hg]Rajni Steiner DO Work Phone: [facility] Zsaqwl27-23-0632 11:44-0400Body dilvmd189.3 cmJoabby Steiner DO Work Phone: [facility] Bmyniq17-45-4684 11:44-0400Body mass index (BMI) [Ratio]36.4 kg/m2Rajni Steiner DO Work Phone: [facility] Lrahrw36-78-4009 11:44-0400Body mwhgoligast21.9 [degF]Rajni Steiner DO Work Phone: [facility] Vrqgdy93-58-4316 11:44-0400Body .86 kgRajni Steiner DO Work Phone: [facility] Snfldo93-30-3318 11:44-0400Diastolic blood mkuftpgg14 mm[Hg]Rajni Steiner DO Work Phone: [facility] Qxxbyp52-30-2905 11:44-0400Heart rate 90 /minRajni Steiner DO Work Phone: [facility] Hugzbg55-72-7374 11:44-0400 Respiratory rate20 /minRajni Steiner DO Work Phone: [facility] Vhfjlc87-83-7580 11:44-8313HqZ6% (BldA) [Mass fraction]97 %Rajni Steiner DO Work Phone: [facility] Ysknhv47-76-8324 11:44-0400Systolic blood qjvowyze103 mm[Hg]Rajni Steiner DO Work Phone: [facility] Gjoxjs35-76-7233 15:18-0400Body gnrkuv573.3 cmLeannhernando Guerrero DO Work Phone: [facility] HospitalJqkzumnyep32-60-0346 15:18-0400Body mass index (BMI) [Ratio]36.71 kg/f7Tyjhbr Cesar DO Work Phone: [facility] HospitalMlujzomajz69-96-6055 15:18-0400Body .76 kgLejim Guerrero DO Work Phone: [facility] HospitalTeyeauwwik05-25-0702 15:18-0400Diastolic blood mm[Hg]Sydnie Guerrero DO Work Phone: [facility] HospitalPbbfulvxcn42-05-7710 15:18-0400Heart rate93 /min Sydnie Guerrero DO Work Phone: [facility] HospitalIrsceldcjr35-88-2406 15:18-1493GfX5% (BldA) [Mass fraction]92 %Sydniearianna Guerrero DO Work Phone: [facility] HospitalTekkoagqrp88-26-4364 15:18-0400Systolic blood gdlbhqoi445 mm[Hg]Sydnie Guerrero DO Work Phone: [facility] HospitalPcwenfovju10-23-4081 11:05-0400Body nqokmo918.3 cmMyriam Peacock MD Work Phone: [phone] [place], [place] 5064305-08-2025 11:05-0400Body mass index (BMI) [Ratio]36.77 kg/e5XvjtpMyriam Peacock MD Work Phone: [phone] [place], [place] 5064305-08-2025 11:05-0400Body vkypyv237.95 kgMyriam Peacock MD Work Phone: [facility]05-08-2025 11:05-0400Diastolic blood mm[Hg]Myriam Peacock MD Work Phone: [phone] [place], [place] 5064305-08-2025 11:05-0400Heart rate 96 /minMyriam Peacock MD Work Phone: [facility] Awhxnp08-21-1829 11:05-0124SdC5% (BldA) [Mass fraction]97 %Myriam Peacock MD Work Phone: [facility] Ansclw45-92-4422 11:05-0400Systolic blood qoftwoot127 mm[Hg]Myriam Peacock MD Work Phone: [facility] Xojbnj59-53-5032 13:09-0400Body fpytci594.3 cmJoabby Steiner DO Work Phone: [facility] Towkmf36-66-6883 13:09-0400Body mass index (BMI) [Ratio]35.21 kg/m2Rajni Steiner DO Work Phone: [facility] Pyzgqr05-89-0858 13:09-0400Body twohagnafqm65.1 [degF]Rajni Steiner DO Work Phone: [facility] Jkqllw73-59-7801 13:09-0400Body mpfasy586.14 kgJoabby Steiner DO Work Phone: [facility] Bzkrxn80-79-1929 13:09-0400Diastolic blood mm[Hg]Rajni Steiner DO Work Phone: [facility] Cwycwq17-03-8594 13:09-0400Heart rate 97 /minJoabby Steiner DO Work Phone: [facility] Telgjv20-60-0024 13:09-5843KcI3% (BldA) [Mass fraction]95 %Rajni Steiner DO Work Phone: [facility] Jtxgrh44-25-6038 13:09-0400Systolic blood vwjmxabx740 mm[Hg]Rajni Steiner DO Work Phone: [facility]11-21-2024 13:00-0500Body ojftel051.3 cmLeayvette Guerrero DO Work Phone: [facility] HospitalFnscxcywcz83-08-7752 13:00-0500Body mass index (BMI) [Ratio]33.82 kg/b9GsvendSydnie Guerrero DO Work Phone: [facility] HospitalKsytoysaga99-40-6154 13:00-0500Body yybkfe871.87 kgLejim Guerrero DO Work Phone: [facility] HospitalLsqbzfsfuj01-12-2295 13:00-0500Diastolic blood mm[Hg]Sydnie Guerrero DO Work Phone: [facility] HospitalOhltddbzcr26-33-0550 13:00-0500Heart bfcl034 /min Sydnie Guerrero DO Work Phone: [facility] HospitalDgcworwjrd50-20-4981 13:00-6409FlR7% (BldA) [Mass fraction]89 %Sydnie Guerrero DO Work Phone: [facility] HospitalRxyffxanky95-24-8192 13:00-0500Systolic blood pdgotctp064 mm[Hg]Sydnie Guerrero DO Work Phone: [place] [address]Dwrglfkwdp92-13-8789 13:10-0500Body .3 cmJoabby Steiner DO Work Phone: [facility]11-11-2024 13:10-0500Body mass index (BMI) [Ratio]32.93 kg/m2Rajni Steiner DO Work Phone: [facility]11-11-2024 13:10-0500Body vwtdhnngomi50.4 [degF]Rajni Perrys DO Work Phone: [facility]11-11-2024 13:10-0500Body awozyh467.15 kgRajni Perrys DO Work Phone: [facility]11-11-2024 13:10-0500Diastolic blood jpziemzy52 mm[Hg]Rajni Steiner DO Work Phone: [facility]11-11-2024 13:10-0500Heart rate 87 /minJoabby Perrys DO Work Phone: [facility] [employer] Yjfhdb82-82-4947 13:10-6380PmM0% (BldA) [Mass fraction]93 %Rajni Steiner DO Work Phone: [facility] Zbijku13-16-1512 13:10-0500Systolic blood blxpnbuf677 mm[Hg]Rajni Steiner DO Work Phone: [facility] Wjckkv41-98-2953 10:36-0400Body qgohqm381.3 Aneta Giles MD Work Phone: [phone] [employer] Urequy30-28-4510 10:36-0400Body mass index (BMI) [Ratio]33.7 kg/h9ZxxzvkSaqib Giles MD Work Phone: [phone] [employer] Ifjmpy96-32-9824 10:36-0400Body lxyrqk706.51 kgThlashell Giles MD Work Phone: [phone] [employer] Xumkhn79-64-0749 10:36-0400Diastolic blood fnilfqzn05 mm[Hg]Saqib Giles MD Work Phone: [phone] Fiuvsw98-72-2573 10:36-0400Heart rate 71 /minThlashell Giles MD Work Phone: [phone] [employer] Gtayco58-09-1432 10:36-9845KzN9% (BldA) [Mass fraction]93 %Saqib Giles MD Work Phone: [phone] [employer] Yfhpzo73-91-5975 10:36-0400Systolic blood ggtotsph902 mm[Hg]Saqib Giles MD Work Phone: [phone] Haeppw97-19-0479 13:02-0400Body tckwic149.3 cmRajni Steiner Work Phone: [facility] Yhtcoh00-26-1617 13:02-0400Body mass index (BMI) [Ratio]33.4 kg/m2Rajni Steiner DO Work Phone: [facility] Ewnfxu95-17-2859 13:02-0400Body dqflapidyrs01.01 [degF]Rajni Steiner DO Work Phone: [facility]09-09-2024 13:02-0400Body fyekdg947.6 kgJoabby Steiner DO Work Phone: [facility]09-09-2024 13:02-0400Diastolic blood opmkcdaf73 mm[Hg]Rajni Steiner DO Work Phone: [facility]09-09-2024 13:02-0400Heart rate 90 /minJoabby Steiner DO Work Phone: [facility]09-09-2024 13:026583OwE9% (BldA) [Mass fraction]93 %Rajni Steiner DO Work Phone: [facility]09-09-2024 13:02-040Systolic blood spcofuws243 mm[Hg]Rajni Steiner DO Work Phone: [facility]08-13-2024 19:58-0400Body rnaxcl883.[address]08-13-2024 19:58-0400Body mass index (BMI) [Ratio]35.15 kg/m2Pmh [address] [place], [place] 1705208-13-2024 19:58-0400Body mwyzjo031.[address] [place], [place] 1705207-08-2024 15:46-0400Diastolic blood vyfpbzuy37 mm[Hg]Rajni Steiner DO Work Phone: [facility]07-08-2024 15:46-0400Systolic blood osxmjgpw739 mm[Hg]Rajni Steiner DO Work Phone: [facility]07-08-2024 15:44-0400Body cadjdp732.3 cmJoabby Steiner DO Work Phone: [facility]07-08-2024 15:44-0400Body mass index (BMI) [Ratio]35.74 kg/m2Joabby Steiner DO Work Phone: [facility] Cohbva29-45-3133 15:44-0400Body eppncrygtje24.9 [degF]Rajni Steiner DO Work Phone: [facility]07-08-2024 15:44-0400Body .77 kgRajni Steiner DO Work Phone: [facility] Amsgcw09-77-5326 15:44-0400Heart rate 83 /minRajni Steiner DO Work Phone: [facility]07-08-2024 15:44-6493WuP5% (BldA) [Mass fraction]96 %Rajni Steiner DO Work Phone: [facility]06-05-2024 13:38-0400Body mgkpiz076.3 cmRajni Steiner DO Work Phone: [facility]06-05-2024 13:38-0400Body mass index (BMI) [Ratio]35.99 kg/m2Rajni Steiner DO Work Phone: [facility] Ujwrrm89-01-7914 13:38-0400Body tskhvtxokwx46.8 [degF]Rajni Steiner DO Work Phone: [facility]06-05-2024 13:38-0400Body .54 kgRajni Steiner DO Work Phone: [facility]06-05-2024 13:38-0400Diastolic blood mm[Hg]Rajni Steiner DO Work Phone: [facility] Igzeeb01-61-4862 13:38-0400Heart rate 82 /minRajni Steiner DO Work Phone: [facility]06-05-2024 13:38-0400 Respiratory rate18 /Frances Steiner DO Work Phone: [facility]06-05-2024 13:38-8361XyF8% (BldA) [Mass fraction]93 %Rajni Steiner DO Work Phone: [facility]06-05-2024 13:38-0400Systolic blood jqaycmsp379 mm[Hg]Rajni Steiner DO Work Phone: [facility]05-30-2024 11:15-0400Diastolic blood easujccf19 mm[Hg]Kacey Stephens GORING C[employer]TER[employer]SPINE SUPERVISOR Work Phone: [facility]05-30-2024 11:15-3589QrR5% (BldA) [Mass fraction]91 %Kacey Stephens GORING C[employer]TER[employer]SPINE SUPERVISOR Work Phone: [facility]05-30-2024 11:15-0400Systolic blood brburgmu101 mm[Hg]Kacey Stephens GORING CUTTER[employer]SPINE SUPERVISOR Work Phone: [facility]05-30-2024 11:11-0400Body mqqjau449.3 cmKacey Stephens GORING CUTTER-SPINE SUPERVISOR Work Phone: [facility]05-30-2024 11:11-0400Body mass index (BMI) [Ratio]36.56 kg/m2Kacey Stephens GORING CUTTER-SPINE SUPERVISOR Work Phone: [facility]05-30-2024 11:11-0400Body ddyjrxtgpwi98.7 [degF]Kacey Stephens GORING C[employer]TER[employer]SPINE SUPERVISOR Work Phone: [facility]05-30-2024 11:11-0400Body .31 kgKacey Stephens GORING CUTTER[employer]SPINE SUPERVISOR Work Phone: [facility]05-30-2024 11:11-0400Heart rate 70 /minKacey Stephens GORING CUTTER-SPINE SUPERVISOR Work Phone: [facility]05-30-2024 11:11-0400 Respiratory rate24 /minKacye Stephens GORING CUTTER-SPINE SUPERVISOR Work Phone: [facility]05-15-2024 13:36-0400Diastolic blood mm[Hg]Rajni Steiner DO Work Phone: [facility]05-15-2024 13:36-0400Systolic blood pvpjsvoj643 mm[Hg]Rajni Steiner DO Work Phone: [facility]05-15-2024 13:04-0400Body qahtdb587.3 cmJoabby Steiner DO Work Phone: [facility]05-15-2024 13:04-0400Body mass index (BMI) [Ratio]37.07 kg/m2Joabby Steiner DO Work Phone: [facility]05-15-2024 13:04-0400Body znbyqdzwqod98.59 [degF]Rajni Steiner DO Work Phone: [facility]05-15-2024 13:04-0400Body juufph755.85 kgJoabby Steiner DO Work Phone: [facility]05-15-2024 13:04-0400Heart rate 88 /minJoabby Steiner DO Work Phone: [facility]05-15-2024 13:04-2629UtL9% (BldA) [Mass fraction]93 %Rajni Steiner DO Work Phone: [facility]04-16-2024 20:38-0400Body ihixog265.[address]04-16-2024 20:38-0400Body mass index (BMI) [Ratio]38.1 kg/m[address]04-16-2024 20:38-0400Body aowbtx226.[address] [place], [place] 1705204-15-2024 13:53-0400Diastolic blood pohuzled48 mm[Hg]Rajni Steiner DO Work Phone: [facility]04-15-2024 13:53-0400Systolic blood ovwdwmig636 mm[Hg]Rajni Steiner DO Work Phone: [facility] Nfxqsi07-25-4648 13:05-0400Body .3 cmRajni Steiner DO Work Phone: [facility] Eparth21-86-7712 13:05-0400Body mass index (BMI) [Ratio]38.03 kg/m2Rajni Steiner DO Work Phone: [facility] Mqjhix08-32-1760 13:05-0400Body jkukgqqkszh09.6 [degF]Rajni Steiner DO Work Phone: [facility] Otxkky02-21-9010 13:05-0400Body rtpaul949.8 kgRajni Steiner DO Work Phone: [facility] Rrexqa80-24-8972 13:05-0400Heart rate 76 /minRajni Steiner DO Work Phone: [facility] Txbjhp33-16-4519 13:05-0400 Respiratory rate18 /minRajni Steiner DO Work Phone: [facility] Dfumlz44-61-3696 13:05-3257IjY9% (BldA) [Mass fraction]93 %Rajni Steiner DO Work Phone: [facility] Anoqjg65-90-0194 11:00-0400Body ompcajehzry00.01 [degF]Rajni Steiner DO Work Phone: [facility] Ycmxym97-61-1865 11:00-0400Diastolic blood uxgdksdw68 mm[Hg]Rajni Steiner DO Work Phone: [facility] Dpibjq69-79-1143 11:00-0400Heart rate 85 /minRajni Steiner DO Work Phone: [facility] Iqoupw10-04-0877 11:00-0400 Respiratory rate22 /minRajni Perrys DO Work Phone: [facility] Bltmgo90-56-7280 11:00-6946NxS9% (BldA) [Mass fraction]93 %Rajni Steiner DO Work Phone: [facility]-2024 11:00-0400Systolic blood pcqpirtr871 mm[Hg]Rajni Steiner DO Work Phone: [facility] CenterMarketArt04-01-2024 05:57-0400Body mass index (BMI) [Ratio]33.77 kg/m2Rajni Steiner DO Work Phone: [facility] Vwichc32-94-6087 05:57-0400Body twaczc320.74 kgRajni Steiner DO Work Phone: [facility] Vmnkqx85-36-7939 19:05-0400Body anxyeu196.3 cmRajni Steiner DO Work Phone: [facility] CenterMarketArt03-30-2024 17:52-0400Body zzsbxkydlkk32.6 [degF]Rajni Steiner DO Work Phone: [facility] Ulgvif66-37-4238 17:52-9827WzP5% (BldA) [Mass fraction]95 %Rajni Steiner DO Work Phone: [facility] Nicwer87-03-8325 14:20-0500Body lyvdqy640.3 cmRajni Steiner DO Work Phone: [facility] CenterMarketArt03-06-2024 14:20-0500Body mass index (BMI) [Ratio]38.42 kg/m2Rajni Steiner DO Work Phone: [facility] CenterMarket[facility]03-06-2024 14:20-0500Body tdqltkrmhlo23.1 [degF]Rajni Steiner DO Work Phone: [facility] CenterMarket[facility]03-06-2024 14:20-0500Body byvxru044.03 kgRajni Steiner DO Work Phone: [facility] CenterMarket[facility]03-06-2024 14:20-0500Diastolic blood eswveooc82 mm[Hg]Rajni Yuhas DO Work Phone: [facility] Bzclwc82-87-9503 14:20-0500Heart rate 70 /minJoabby Steiner DO Work Phone: [facility] Izrurz17-35-8450 14:20-0597SsK0% (BldA) [Mass fraction]96 %Rajni Steiner DO Work Phone: [facility] Vjpkag70-20-8240 14:20-0500Systolic blood psuybvbg080 mm[Hg]Rajni Steiner DO Work Phone: [facility] Lnuxid54-69-6036 10:18-0500Body jmhugq675.3 cmSye Meadows DO Work Phone: [facility] Mmjxui39-91-3664 10:18-0500Body mass index (BMI) [Ratio]37.08 kg/e9XuimjlGrace Meadows DO Work Phone: [facility] Fbbvpx12-19-5871 10:18-0500Body duafdc966.9 kgGrace Meadows DO Work Phone: [facility] Xqxfbj49-81-2771 10:18-0500Diastolic blood pmcusnbh70 mm[Hg]Grace Meadows DO Work Phone: [facility] Gxsxpk56-84-6815 10:18-0500Heart rate 75 /minSye Meadows DO Work Phone: [facility] Nevbih47-21-0489 10:18-8937VsR3% (BldA) [Mass fraction]96 %Grace Meadows DO Work Phone: [facility] Udionv19-64-7114 10:18-0500Systolic blood rssmiafu180 mm[Hg]Grace Meadows DO Work Phone: [facility]02-05-2024 13:59-0500Body iwzguq758.3 cmRajni Steiner DO Work Phone: [facility] Ldlgnu60-10-7660 13:59-0500Body mass index (BMI) [Ratio]38.59 kg/m2Rajni Steiner DO Work Phone: [facility] Whqpfo80-81-9638 13:59-0500Body uhjdncewzrc53.39 [degF]Rajni Steiner DO Work Phone: [facility] Fqfddk56-66-1098 13:59-0500Body tzszny676.53 kgRajni Steiner DO Work Phone: [facility]02-05-2024 13:59-0500Diastolic blood ojiylzdn43 mm[Hg]Rajni Steiner DO Work Phone: [facility]02-05-2024 13:59-1544WsK6% (BldA) [Mass fraction]95 %Rajni Steiner DO Work Phone: [facility]02-05-2024 13:59-0500Systolic blood mm[Hg]Rajni Steiner DO Work Phone: [facility]12-28-2023 07:01-3943SjM1% (BldA) [Mass fraction]95 %WILBER Alvarado [facility] HospitalComment on above: Performed By: #### ABG ####[facility] ([id number])[address] [place] [address] [id number] 07:43-2758EwV7% (BldA) [Mass fraction]93 %WILBER Caalca [facility] HospitalComment on above:Performed By: #### ABG #### [facility] ([id number]) [address] [place], [place] [id number] 10:09-7120IkU6% (BldA) [Mass fraction]93 %WILBER FRASER [facility] HospitalComment on above:Performed By: #### CMP, 61330-9, 13460-5, CBCA #### [facility] ([id number]) [address] [place], [place] [id number] 07:52-9736ArT9% (BldA) [Mass fraction]93 %WILBER Cavazos [facility] HospitalComment on above:Performed By: #### CMP, 17137-1, 97333-8, CBCA #### [facility] ([id number]) [address] [facility] [place], [place] [id number] 06:48-3337KcF2% (BldA) [Mass fraction]94 %WILBER [facility] servicesmindi [facility] HospitalComment on above:Performed By: #### CMP, 87296-7, 65024-4, CBCA #### [facility] ([id number]) [address] [facility] [place], [place] [id number] 07:26-8433EfT4% (BldA) [Mass fraction]95 %WILBER [facility] servicesmindi [facility] HospitalComment on above:Performed By: #### ABG #### [facility] ([id number]) [address] [place], [place] [id number] 08:40-0400Body heightDahernan Carson Other [employer] Other Phone: [phone] 08:40-0400Body mass index (BMI) [Ratio] 38.83 kg/m2John Carson Other [employer] Other Phone: [phone] 08:40-0400Body njoalc048.3 kgJohn Carson Other [employer] Other 08-17-2023 08:40-0400Diastolic blood wpsjiwqh88 mm[Hg] John Carson Other [employer] Other 08-17-2023 08:40-0400Systolic blood czbtxcul035 mm[Hg] John Carson Other [employer] Other Encounters Encounter DateEncounter TypeCare ProviderFacilityStart: 02-24-2025 End: 56-01-6740NdomuuUqcq L Yuhas DO Work Phone: [facility]icians Internal Medicine - [facility] MedicineComment on above:Gastro-esophageal reflux disease without esophagitisMed RefillStart: 02-22-2025 End: 44-33-6157Efbjhypgr department patient visitRAJNI Cardoso [facility]: 02-20-2025 End: 82-44-8540Gjeckb-up encounterKacey Sims [facility] - Heart Failure ClinicComment on above:Basic Metabolic PanelStart: 75-25-3505fbvcjzkbhqGGLP M [facility]art: 02-13-2025 End: 51-82-9546dsyyiwdkouMurzasl Vytheather Giedraitis MDFacility:PM Yoly Start: 02-09-2025 End: 42-87-6024Rtrfedoxy department patient visitJOABBY Cardoso [facility]tart: 02-08-2025 End: 30-39-8397Zqfvgnlif encounterSydnie Guerrero DO Work Phone: [facility]: 02-06-2025 End: 11-58-3513Enbhliszn encounterTosin Reyes CMAPremier Health Physicians Internal Medicine [facility]art: 02-06-2025 End: 16-36-5193covfwtxgcvWCUP M [facility]: 02-06-2025 End: 57-62-0555Hkgyjx outpatient visit 25 minutesRisa Summers MD Work Phone: [facility] - Heart Failure ClinicComment on above:Chronic diastolic heart failure (CMS-HCC) (Primary Dx); Pulmonary hypertension (CMS-HCC); Nonrheumatic tricuspid valve regurgitationStart: 02-03-2025 End: 94-17-2995Jknugsdnr encounterAntoinette Sanchez CNAProMedica Heart Failure ClinicStart: 01-25-2025 End: 18-81-0534Lfopqzjtx encounterLeannhernando Magnolia Guerrero DO Work Phone: [facility] MedicineStart: 01-04-2025 End: 16-08-5585Jaeyltmten and management of inpatientRAJNI PERRYMercy Health [facility] HospitalStart: 01-03-2025 End: 98-36-9340bkvwzheindKwj Pat Phone Call Provider [address] [place] [address] AdmitStart: 01-03-2025 End: 17-92-4631Txhfdujgn encounterScarletthernando Merida Cesar DO Work Phone: [facility] MedicineStart: 01-03-2025 End: 30-04-2890nmvmhjwdaqXOUV L [facility]: 12-28-2024 End: 93-54-5309UwjjuoKneq L Obdulia DO Work Phone: [facility] - Family MedicineComment on above: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Basic Metabolic PanelStart: 12-27-2024 ambulatoryRAJNI Cardoso [facility] Hospitaltart: 12-21-2024 End: 41-62-9074vmtqsekaodQKGKHX A PRUIETTWVUMedicine [facility] HospitalStart: 12-19-2024 End: 20-15-8920vzwhinstchSzl Pat Phone Call Provider [address] [place] [address] AdmitStart: 12-19-2024 End: 43-55-3840rswieyxrcmKZWV L [facility] HospitalStart: 12-19-2024 End: 02-78-1222wjpwoecggvQjbhdrs Saadia Root MDFacility:PM [place] Start: 12-15-2024 End: 23-55-3289Eddymg-up encounterRajni Steiner DO Work Phone: [facility] - Family MedicineComment on above:Basic Metabolic PanelStart: 12-15-2024 End: 80-37-4067Uwoppkwlvuiq care manage srvc 14 day dischargeRajni Steiner DO Work Phone: [facility] Physicians Internal Medicine - Family MedicineComment on above:Microcytic anemia (Primary Dx); Gastro-esophageal reflux disease without esophagitis; Stage 3a chronic kidney disease ([facility]-HCC); Spinal stenosis of lumbar region with neurogenic claudicationStart: 12-15-2024 End: 66-30-4966vjlisclyqdHFKR L [facility] PPGStart: 56-01-3474asnyimxsmrCUFS L [facility] HospitalStart: 12-12-2024 End: 10-80-5629Leomqr-up encounterChrist Hospitallivia LeviUniversity [facility]als [facility] Heart Failure ClinicComment on above:Basic Metabolic PanelStart: 73-72-9791qaeqruhqpzSJOCBC A PRUIETTWVUMedicine [facility] HospitalStart: 12-08-2024 End: 31-27-1256Asmtzdkqs encounterLiz Norman [facility] Physicians Internal Medicine - Family MedicineComment on above:Transition Of CareStart: 12-04-2024 End: 13-09-7787Gjdcycxlrk and management of inpatientRAJNI Cardoso [facility] HospitalStart: 12-03-2024 End: 98-12-2450Qsyndzuuky and management of inpatientRAJNI PERRYMercy Health [facility] HospitalStart: 11-30-2024 End: 00-08-2084Cyeayk-up encounterChrist Hospitallivia [facility] Heart Failure ClinicComment on above:Basic Metabolic PanelStart: 11-29-2024 End: 43-32-4776Fyvgih-up encounterRajni Steiner DO Work Phone: [facility] Physicians Internal Medicine - Family MedicineComment on above:X-ray knee right 3 viewsStart: 08-13-5393egmtmjgeydlionel TorrezCenterville HospitalStart: 11-28-2024 End: 15-01-8960hfzidkjlzuDWTW L [facility] Hospitaltart: 11-28-2024 End: 49-16-2042Rqkcpb outpatient visit 25 minutesOdessa Cook GORING CUTTER-STEAM CLEANER Work Phone: [facility] - Heart Failure ClinicComment on above:Chronic heart failure with preserved ejection fraction ([facility]-HCC) (Primary Dx); Pulmonary hypertension ([facility]); Nonrheumatic tricuspid valve regurgitation; Essential hypertension; Atherosclerosis of lime coronary artery of lime heart without angina pectoris; History of four vessel coronary artery bypass graft; NSTEMI (non-ST elevated myocardial infarction) ([facility])Start: 11-28-2024 End: 01-20-8329jtlyqifietVMTMJD A PRUIETTWooster Community Hospitaltart: 11-23-2024 End: 01-56-1274JssparBkjv L Yuhas DO Work Phone: [facility] Physicians Internal Medicine - Family MedicineComment on above:Peripheral polyneuropathyStart: 11-14-2024 End: 46-94-6746dmgkpojrmvYqiwrnn Vytautas Giedraitis MDFacility:PM [place] Start: 11-07-2024 End: 26-94-5032Lqftsu outpatient visit 25 minutesRajni Perrys DO Work Phone: [facility] Physicians Internal Medicine - Family MedicineComment on above:Hiatal hernia with GERD (Primary Dx); Stage 3a chronic kidney disease ([facility]); Patellar tendinitis of right knee; Gastro-esophageal reflux disease without esophagitis; Venous insufficiency of both lower extremitiesStart: 11-07-2024 End: 00-80-7654wdzjlvxflkCDUV [facility] Ambulatory PPGStart: 11-02-2024 End: 17-05-1799Jjcrvq-up encounterRajni Steiner DO Work Phone: [facility] Physicians Internal Medicine - Family MedicineComment on above:Fluoroscopy upper GI with esophagusStart: 11-02-2024 End: 90-48-6876aonwozgsosODKP [facility] Hospitaltart: 10-27-2024 End: 66-30-9495Auixzr outpatient visit 25 minutesRajni Perrys DO Work Phone: [facility] - Family MedicineComment on above:Type 2 diabetes mellitus with stage 3a chronic kidney disease, without long-term current use of insulin ([facility]) (Primary Dx); Venous insufficiency of both lower extremities; Chronic heart failure with preserved ejection fraction ([facility]-HCC); Stage 3a chronic kidney disease ([facility]); Nausea and vomiting, unspecified vomiting type; Arthritis of left sacroiliac jointStart: 10-27-2024 End: 27-42-3860nwvnqxcerrWUXMNeponsit Beach Hospital Ambulatory PPGStart: 10-13-2024 End: 90-40-6261TtkcrgOhgn L Yuhaumair DO Work Phone: [facility] - [facility] HospitalComment on above:Peripheral polyneuropathyStart: 91-96-6573ziiotwpuiiSHC Specialty Hospitaltart: 10-07-2024 End: 72-97-8957rofertlwpoWKBCAtrium Health [facility] Ambulatory PPGStart: 10-07-2024 End: 96-44-1467Eftnkr outpatient visit 25 minutesRajni Steiner DO Work Phone: [facility] - [facility] HospitalComment on above:Cervicogenic headache (Primary Dx); Orthostatic hypotension; Chronic heart failure with preserved ejection fraction ([facility]); Fibromyalgia syndromeStart: 09-21-2024 End: 58-57-3162Vuocmv outpatient visit 15 minutesSydnie Guerrero DO Work Phone: [facility] FNR PULMComment on above:Chronic obstructive pulmonary disease, unspecified COPD type ([facility]/HCC) (Primary Dx); Chronic respiratory failure with hypoxia and hypercapnia ([facility]); BONY (obstructive sleep apnea)Start: 09-21-2024 End: 24-59-1018aeufbucdygVKGMUI K STRACKNot AvailableStart: 09-21-2024 End: 61-68-1408Picxpa flowsElba Guerrero DO Work Phone: [facility] FNR PULMStart: 09-21-2024 End: 41-11-7668Iqtvma flowsElba Guerrero DO Work Phone: [facility] FNR PULMStart: 09-04-2024 End: 16-10-5064AbgoaiIspp L Yuhas DO Work Phone: [facility] Physicians Internal Medicine - Family MedicineComment on above:Peripheral polyneuropathyStart: 09-01-2024 End: 77-73-5376Rqlaud outpatient visit 25 Jayson Peacock MD Work Phone: [facility] Physicians CardiologyComment on above: Chronic heart failure with preserved ejection fraction (CMS-HCC) (Primary Dx); 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; Hx of CABGStart: 09-01-2024 End: 86-34-7440mdfosmgrwsEHKTHAdventist Health Delanotart: 07-15-2024 End: 30-49-3375ZbosewTrrrDeborah [facility] and [facility] Center Physicians CardiologyComment on above:Med RefillStart: 07-15-2024 End: 35-80-5007HghpsxMhgg L Yuhas DO Work Phone: [facility] Physicians Internal Medicine - Family MedicineComment on above:Gastro-esophageal reflux disease without esophagitis Start: 07-07-2024 End: 82-30-9396ftwgwwjgfjHPZOMercy Health Tiffin Hospitaltart: 07-07-2024 End: 58-48-0547natoauueaqDCRBHouston Methodist Willowbrook HospitalStart: 07-07-2024 End: [id number] outpatient visit [address] Steiner DO Work Phone: [facility] Internal Medicine - Family MedicineComment on above:IFG (impaired fasting glucose) (Primary Dx); Chronic obstructive pulmonary disease, unspecified COPD type (CMS-HCC); Stage 3a chronic kidney disease (CMS-HCC); Chronic respiratory failure with hypoxia and hypercapnia (CMS-HCC); Chronic heart failure with preserved ejection fraction (CMS-HCC); Bipolar 2 disorder, major depressive episode ([facility]-HCC); BMI 40.0-44.9, adult ([facility]-HCC); 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 ([facility]); B12 deficiency; Peripheral polyneuropathy; Arthritis of left sacroiliac joint ([facility]-HCC)Start: 05-14-2024 End: 65-75-5687JvrmcuYfxl L Yusunshine DO Work Phone: [facility] - Family MedicineComment on above:Peripheral polyneuropathyStart: 04-25-2024 End: 50-68-2534DxcefgHcwxei [facility] Physicians CardiologyComment on above:Med RefillStart: 04-07-2024 End: 99-18-1717HxrgkrDacdsmqr Noah GORING CUTTER-STEAM CLEANER Work Phone: [facility] Physicians CardiologyComment on above:Med RefillStart: 03-29-2024 End: 23-23-7326jybdiuccxcLXTDNeponsit Beach Hospital Ambulatory PPGStart: 03-29-2024 End: 09-69-2010Qwnvty outpatient visit 25 minutesRajni Steiner DO Work Phone: [facility] Medicine - Family MedicineComment on above:Contusion of lower leg, unspecified laterality, initial encounter (Primary Dx)Start: 03-29-2024 End: 09-66-9092Bmaqhrpdw encounterMisty Preston [facility] - Family MedicineStart: 03-21-2024 End: 43-91-6796ymfteugsifMsyvvsi Saadia Root MDFacility:[facility] [place] Start: 03-17-2024 End: 97-53-0816Khhxad PerfectServeElba Guerrero DO Work Phone: noms PULMStart: 03-17-2024 End: 91-73-7329Puuuqx PerfectServeElba Guerrero DO Work Phone: noms PULMStart: 03-17-2024 End: 30-95-0482Jaquew outpatient new 45 minutesSydnie Guerrero DO Work Phone: noms PULMComment on above:Chronic obstructive pulmonary disease, unspecified COPD type (CMS/HCC) (Primary Dx); Chronic respiratory failure with hypoxia and hypercapnia (CMS/HCC); Cigarette smokerStart: 03-17-2024 End: 92-35-0889kafigvxcllKIMYNMVicente Carvajal AvailableStart: 03-09-2024 End: 88-01-2280VemctxFuet L Vickyumair DO Work Phone: [facility] - Family MedicineComment on above:Gastro-esophageal reflux disease without esophagitis Start: 03-07-2024 End: 07-95-6174nwzukamwjcRRPZRiverview Health Institutetart: 03-07-2024 End: 96-55-7835Qqmiqb outpatient visit 25 minutesRajni Steiner DO Work Phone: [facility] - Family MedicineComment on above:IFG (impaired fasting glucose) (Primary Dx); Peripheral polyneuropathy; Stage 3a chronic kidney disease (CMS-HCC); Chronic heart failure with preserved ejection fraction (CMS-HCC); 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 ([facility]-H[facility])Start: 03-07-2024 End: 83-94-4628bmpimybqrgGTYVAspirus [facility] Hospital PPGStart: 02-29-2024 End: 06-53-3508nroifjdtbvJvvkdncSapna Root MDFacility:[facility] [place] Start: 02-22-2024 End: 79-20-7585Friunvksd encounterMisty Preston [facility] SYSTEMPro[facility] Internal [facility] - Family [facility] Centertart: 02-22-2024 End: 89-60-0377jqdaznuvkjIzszcseSapna Root MDFacility:[facility] [place] Start: 02-19-2024 End: 12-46-7511Dbavjn outpatient visit 15 minutesAlex Amos MD Work Phone: [facility] CardiologyComment on above: 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) (Primary Dx)Start: 02-18-2024 End: 72-44-0327Vmsuzorcw encounterJennifer Lachner [facility] SYSTEMPro[facility]ica [facility] CardiologyStart: 02-09-2024 End: 16-03-5268Kbmfkj flowsLino Huertas DO Work Phone: noms CI ORTHOPAEDICSStart: 02-09-2024 End: 11-36-6090Kfddgj flowsLino Huertas DO Work Phone: [facility] CI ORTHOPAEDICSStart: 02-09-2024 End: 82-04-3366friosahdwkXQREF A ALEKSANDARNot AvailableStart: 02-09-2024 End: 99-05-2363Ztkroa outpatient visit 10 minutesEusebia Huertas DO Work Phone: noms CI ORTHOPAEDICSComment on above:Trigger point of left side of body (Primary Dx); Arthritis of left sacroiliac joint (CMS/HCC); Lumbosacral pain; Pain of left sacroiliac jointStart: 02-03-2024 End: 46-40-6740Ccnfojvvk encounterFior Scott [facility] SYSTEMPro[facility] Internal Medicine - Family MedicineStart: 02-01-2024 End: 30-85-7351Hskklxpfl encounterSye Meadows DO Work Phone: [facility] Pulmonary/Sleep MedicineStart: 01-26-2024 End: 49-24-3335Khcfzj outpatient visit 15 minutesEusebia Huertas DO Work Phone: noms CI ORTHOPAEDICSComment on above:Left shoulder pain, unspecified chronicity (Primary Dx); Arthritis of left shoulder regionStart: 01-26-2024 End: 76-32-3141pszwgfekweFZDBY A HUDLITAKARLANot AvailableStart: 01-21-2024 End: 50-09-3260Khnnta Rajinder Buchanan APRN-STEAM CLEANER Work Phone: [facility] Centerca Heart Failure ClinicComment on above:Chronic heart failure with preserved ejection fraction (CMS-HCC)Start: 01-20-2024 End: 63-40-0761AcglpkHjcky Bruce MERCADOOverton Brooks VA Medical Centergenet Physicians CardiologyComment on above:Med RefillStart: 01-20-2024 End: 96-13-2081SkqduwQdne L Yuhas DO Work Phone: [facility] Internal Medicine - Family MedicineComment on above:Spinal stenosis of lumbar region with neurogenic claudicationMed Change RequestStart: 01-19-2024 End: 36-54-7362Mpfgtmtoo encounterAnabela Cueva [facility] Physicians Cardiology Start: 01-18-2024 End: 06-17-3294IwhdmzYotdig Liedberg [facility] Physicians CardiologyComment on above:Med RefillStart: 94-84-5771opmzwatmiyHJLHFZ [facility] [place] Ambulatory PPGStart: 01-12-2024 End: 19-83-8525Mujmvt flowsLino Huertas DO Work Phone: noms CI ORTHOPAEDICSStart: 01-12-2024 End: 45-14-2147Ppemle Yelena Huertas DO Work Phone: noms CI ORTHOPAEDICSStart: 01-12-2024 End: 42-80-5249onmnvitxrvXGDZB A HUDDLESTONNot AvailableStart: 01-12-2024 End: 14-47-3549Oujurp outpatient visit 10 minutesEusebia Huertas DO Work Phone: noms CI ORTHOPAEDICSComment on above:Trigger point of left side of body (Primary Dx)Start: 01-07-2024 End: 85-79-7163Gnpduxbnn encounterSofya Coe [facility] Physicians Internal Medicine - Family MedicineStart: 01-04-2024 End: 05-40-4292mtonyglhrlVQUU L YUHAAndi Cameron HospitalStart: 01-04-2024 End: 47-62-6579Pyafgt outpatient visit 25 minutesRajni Steiner DO Work Phone: [facility] Internal Medicine - Family MedicineComment on above:Chronic respiratory failure with hypoxia and hypercapnia (CMS-HCC) (Primary Dx); BONY treated with BiPAP; Spinal stenosis of lumbar region with neurogenic claudication; Chronic heart failure with preserved ejection fraction (CMS-HCC)Start: 01-04-2024 End: 91-26-3648vaqtsqqpylTOKCAtrium Health [facility] Ambulatory PPGStart: 01-01-2024 End: 24-68-5705RbbhurHlnq L Yuhas DO Work Phone: [facility] Internal [facility] CampusComment on above:Spinal stenosis of lumbar region with neurogenic claudicationStart: 12-30-2023 End: 38-20-0149Pulbbwekz encounterMisty Preston ELIANProMedica [facility] Internal Medicine [facility] MedicineStart: 12-29-2023 End: 42-14-0298Qovpwc PerfectServeoscarEnrriquecristina Mindi Aleksandar DO Work Phone: noms CI ORTHOPAEDICSStart: 12-29-2023 End: 34-47-1693Izstij PerfectServeheetEusebia Mindi Aleksandar DO Work Phone: n[facility] CI ORTHOPAEDICSStart: 12-29-2023 End: 34-83-8585Soiuao outpatient visit 25 minutesJacristina Mindi Aleksandar DO Work Phone: noms CI ORTHOPAEDICSComment on above:Trigger point of left side of body (Primary Dx); Compression fracture of T6 vertebra with routine healing, subsequent encounter; Compression fracture of T8 vertebra with routine healing, subsequent encounter; Osteoporotic compression fracture of vertebra with routine healing, subsequent encounterStart: 12-29-2023 End: 91-35-1339uxodlvqdxoRXQDB A HUDDLESTONNot AvailableStart: 12-24-2023 End: 40-08-9116Bsulasuoo encounterMisty Preston [facility] Internal Medicine [facility] MedicineStart: 12-17-2023 End: 94-21-8455Dkjgducbb encounterRoxanne E LafountainProMedica Physicians Pulmonary/Sleep MedicineStart: 12-15-2023 End: 17-30-5238Lfescvfqj encounterRoxanne E LafountainProMedica Physicians Pulmonary/Sleep MedicineStart: 12-10-2023 End: 44-85-8402Vtxwvedsc encounterKaia Jovel MD Work Phone: [facility] PHYSICIANS PULMONARY & SLEEPStart: 12-08-2023 End: 75-19-0127Bwtfhpfv SupportSye Meadows DO Work Phone: [facility] - Sleep Disorders Comment on above:ArrivedStart: 11-19-2023 End: 04-00-5201Meofexmvf encounterTosin Reyes [facility] Physicians Internal Medicine - Family MedicineStart: 11-03-2023 End: 52-96-3629KbvybxNxen L Yuhas DO Work Phone: [facility] Internal Medicine - Family MedicineComment on above:Fibromyalgia syndromeStart: 11-02-2023 End: 12-50-8955gekkfnveqhBQXB L YUHASProMedTrinity Health Systemtart: 11-02-2023 End: 87-83-2848Hbvdyg outpatient visit 25 minutesJohn L Yuhas DO Work Phone: [facility] Internal Medicine - Family MedicineComment on above:Venous insufficiency of both lower extremities (Primary Dx); Chronic heart failure with preserved ejection fraction (CMS-HCC); Acute pulmonary embolism without acute cor pulmonale, unspecified pulmonary embolism type (CMS-HCC); B12 deficiencyStart: 10-30-2023 End: 78-94-9235KvkgadXdlrfa R Rettig GORING CUTTER-STEAM CLEANER Work Phone: [facility] - Heart Failure ClinicComment on above:Shortness of breath; Chronic heart failure with preserved ejection fraction (CMS-HCC)Start: 10-27-2023 End: 40-04-2100vwccymtzbpOQUJD A HUDDLESTONNot AvailableStart: 10-21-2023 End: 30-05-2592SqjhmiQtun L Yuhas DO Work Phone: [facility] Internal Medicine - Family MedicineStart: 10-07-2023 End: 03-31-5643Fhqfutuhb encounterDaisha Marquez [facility] Physicians General SurgeryStart: 10-06-2023 End: 84-86-8964JwuuiwUous L Yuhas DO Work Phone: [facility] Internal Medicine - Family MedicineComment on above:Spinal stenosis of lumbar region with neurogenic claudication (Primary Dx)Start: 10-02-2023 End: 64-80-8859IjkkjrRfymsm R Rettig GORING C[employer]TER-STEAM CLEANER Work Phone: [facility] - Heart Failure ClinicComment on above:Chronic heart failure with preserved ejection fraction (CMS-HCC); Atherosclerosis of lime coronary artery of lime heart without angina pectorisStart: 10-01-2023 End: 93-07-0726SjpsqeXbpyr PrestonCamden General Hospital Physicians Internal Medicine - Family MedicineComment on above:Closed wedge compression fracture of T6 vertebra with routine healingStart: 09-30-2023 End: 42-27-9833ukoelhapaoDXJN L YUMartins Ferry Hospitaltart: 09-30-2023 End: 50-15-1369Kiubgw outpatient visit 25 minutesRajni Steiner DO Work Phone: [facility] Internal Medicine - Family MedicineComment on [...] claudication; Peripheral polyneuropathy; B12 deficiencyStart: 09-24-2023 End: 60-56-0954Ubzspw outpatient visit 25 minutesKacey Stephens GORING CUTTER-SPINE SUPERVISOR Work Phone: [facility] Internal Medicine - Family MedicineComment on above:Flu-like symptoms (Primary Dx); Community acquired pneumonia, unspecified laterality; Chronic heart failure with preserved ejection fraction (CMS-HCC)Start: 09-22-2023 End: 16-86-3979WvtvtcTrnhi PrestonCamden General Hospital Physicians Internal Medicine - Family MedicineComment on above:Closed wedge compression fracture of T6 vertebra with routine healingStart: 09-10-2023 End: 56-59-6255XcdjynVqfm L Yuhas DO Work Phone: [facility] Internal Medicine - Family MedicineComment on above:Gastro-esophageal reflux disease without esophagitis Start: 09-09-2023 End: 12-83-7565Vnydkgzkemgn care manage srvc 14 day dischargeFaithabby Steiner DO Work Phone: [facility] Internal Medicine - Family MedicineComment on above:Closed wedge compression fracture of T6 vertebra with routine healing (Primary Dx); Acute pulmonary embolism without acute cor pulmonale, unspecified pulmonary embolism type ([facility]); Spinal stenosis of lumbar region with neurogenic claudicationStart: 08-17-2023 End: 77-17-9738Pgrqnrnae encounterOrders Support User [facility] Division of [facility] - Sleep DisordersComment on above: Sleep Lab (Pap Order)Start: 08-14-2023 End: 09-73-6178KgzulmUlct McVayPremier Health Physicians Pulmonary/Sleep Medicine Comment on above:BONY (obstructive sleep apnea) (Primary Dx); Hypoxemia associated with sleepStart: 08-13-2023 End: 27-15-1138Knvucsijt encounterKaia Jovel MD Work Phone: [facility] Pulmonary/Sleep MedicineStart: 08-11-2023 End: 79-01-0838Lazessxt SupportSye Meadows DO Work Phone: [facility] - Sleep Disorders Comment on above:BONY treated with BiPAPStart: 08-10-2023 End: 39-67-5960Ileaxzxtcixs care manage srvc 14 day dischargeRajni Steiner DO Work Phone: [facility] Internal Medicine - Family MedicineComment on above:Unilateral groin pain, right (Primary Dx); Spinal stenosis of lumbar region with neurogenic claudication; Chronic respiratory failure with hypoxia and hypercapnia (CMS-HCC); Chronic heart failure with preserved ejection fraction (CMS-HCC); BONY treated with BiPAP; Bipolar disorder in partial remission, most recent episode unspecified type ([facility])Start: 08-06-2023 End: 43-92-7303Zadirphcp encounterSnereyda Cantor [facility] Pulmonary/Sleep MedicineStart: 54-17-8628Pcnuzbxvc Hay Meadows DO Work Phone: [facility] Physicians Pulmonary/Sleep MedicineStart: 07-25-2023 End: 43-82-6754Fjuiwjzcwr and management of inpatientAshimicaela Lock MD Work Phone: [facility] - Acute Care Comment on above:Chronic respiratory failure with hypoxia and hypercapnia (CMS- HCC) (Primary Dx); COPD exacerbation (CMS-HCC); Acute respiratory failure with hypoxia and hypercapnia (CMS-HCC); HypoxiaStart: 07-01-2023 End: 24-34-5331Oviuev outpatient visit 25 minutesJoabby Steiner DO Work Phone: [facility] Internal Medicine - Family MedicineComment on above:Fibromyalgia syndrome (Primary Dx); Stage 3a chronic kidney disease (CMS-HCC); BONY treated with BiPAP; Chronic heart failure with preserved ejection fraction (CMS-HCC); Obesity (BMI 30-39.9)Start: 46-89-8401Vvjctgvru encounterSye Meadows DO Work Phone: [facility] - Sleep Disorders Comment on above:Sleep Lab (Split Night)Start: 06-25-2023 End: 61-21-1698Uhtach outpatient visit 25 vinodGrace Meadows DO Work Phone: [facility]icians Pulmonary/Sleep MedicineComment on above:BONY treated with BiPAP (Primary Dx); Chronic obstructive pulmonary disease, unspecified COPD type (CMS-HCC); Shortness of breath; Cigarette nicotine dependence in remissionStart: 06-01-2023 End: 08-04-9746Gnogejobtvre care manage srvc 7 day dischargeJoabby Steiner DO Work Phone: [facility] Internal Medicine - Family MedicineComment on above:Chronic heart failure with preserved ejection fraction (CMS-HCC) (Primary Dx); Bipolar disorder in partial remission, most recent episode unspecified type (CMS-HCC); 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); BMI 40.0-44.9, adult ([facility]-HCC); BONY treated with BiPAPStart: 66-15-0802Hcrtbu OnlyGrace Meadows DO Work Phone: [facility] Pulmonary/Sleep MedicineStart: 04-28-2023 End: 85-30-5339Krbjuvbrkk and management of inpatientLAURA [facility] HospitalStart: 04-28-2023 End: 10-76-1891Taixubwyuh and management of inpatientLAURA FELKERClermont County Hospital HospitalStart: 04-23-2023 End: 75-95-4836Zlxqdfkigb and management of inpatientKARL S [facility] Centerica [facility] HospitalStart: 04-22-2023 End: 57-73-6381Moikkgohgm and management of inpatientDEAN Jose [facility] HospitalStart: 04-21-2023 End: 92-33-0246Hstrysjofg and management of inpatientDEAN Jose WARSAWDANIELChildren[facility] Hospital for Rehabilitation HospitalStart: 04-20-2023 End: 31-45-0335Kwllukoynf and management of inpatientDEAN Jose AGUEROChildren's Hospital for Rehabilitation HospitalStart: 04-19-2023 End: 30-90-7059Kxvjclnldr and management of inpatientCHERYL Janae RANGELERSClermont County Hospital HospitalStart: 04-18-2023 End: 42-16-2029Mhrrmiyixw and management of inpatientDEAN Jose [facility] HospitalStart: 04-17-2023 End: 53-95-6906Ernopycxwd and management of inpatientDEAN Jose WARSAWDANIELChildren's Hospital for Rehabilitation HospitalStart: 04-16-2023 End: 34-25-8335Geuzcildou and management of inpatientDEAN Jose WARSAWDANIELChildren's Hospital for Rehabilitation HospitalStart: 04-15-2023 End: 09-70-6036Adlmbiyitx and management of inpatientDEAN Jose WARSAWDANIELChildren's Hospital for Rehabilitation HospitalStart: 04-15-2023 End: 22-95-9157Ywpogsennv and management of inpatientJAMEY YSABELIZClermont County Hospital HospitalStart: 04-15-2023 End: 66-16-7532Mggqrruena and management of inpatientVENU TAJ LEÓN [facility] HospitalStart: 66-39-8068Hnsqbo outpatient new 30 minutesDale BraunG [facility] NeurosurgeryStart: 12-11-2022 End: 59-09-5475kitgpvvsvrXhgtxb Andrew SteinFacility:[facility] Hospitaltart: 12-11-2022 End: 47-90-5535ewtnlqwusdTMJEFFERSON Fowler Work Phone: [facility] Work Phone: Start: 12-11-2022 End: 68-42-0509Tzooswm encounter procedureJEFFERSON Fowler Work Phone: [facility]-X[facility] [place] Work Phone: Start: 01-24-2022 End: 22-75-1660klxggvnpfxGulpmbmdhmc M HassettFacility:[facility] Hospitaltart: 01-07-2018 End: 23-57-6341Mqoanxjpb department patient visitRhabdulaziz Fernandez Facility:[facility] Procedures DateProcedureProcedure DetailPerforming ClinicianStart: 79-13-7690Dflvr metabolic panel calcium totalJohn L Yuhas DO Work Phone: Start: 87-65-6549Lfonz depression screening assessment Liz Norman RNStart: 65-16-4292Janbjmq of coronary artery bypass grafting History of four vessel coronary artery bypass graftOdessa Cook GORING CUTTER-STEAM CLEANER Work Phone: Start: 99-21-5321Qevok depression screening assessment Rajni Yuhas DO Work Phone: Start: 94-05-7037Bhvidtqxijeww metabolic panelJohn L Yuhas DO Work Phone: Start: 07-76-4115Dfacd depression screening assessment Rajni Yuhas DO Work Phone: Start: 77-78-9188Xhzkm depression screening assessment Rajni Gaytanhas DO Work Phone: Start: 06-55-8132Vsepsc-up visitFollow-upMANEL BOUMEGOUASStart: 46-34-0916Edjxu depression screening assessmentRajni Steiner DO Work Phone: Start: 63-26-7977Jxnqwrbcozhwkv aspir&/inj major jt/bursa w/o usJacristina A Aleksandar DO Work Phone: Start: 45-52-1984Psvsc shoulder complete minimum 2 viewsEusebia Huertas DO Work Phone: Start: 82-77-5909Bpryhd-up visitFollow-upSHANMISTI Garcia ELSTONStart: 02-08-7219Kdgsd depression screening assessmentRajni Steiner DO Work Phone: Start: 72-77-3538Pnanvjlba single/pattern layout worker trigger point 1/2 musclesAmy Deel ARRT Work Phone: Start: 59-33-6135Zwrtx spine 1 view specify levelEusebia Huertas DO Work Phone: Start: 10-95-4501Oqznt depression screening assessment Rajni Steiner DO Work Phone: Start: 96-08-9635Ownhr depression screening assessment Rajni Steiner DO Work Phone: Start: 39-77-2125DZZZ INFLUENZA A/INFLUENZA B/SARS-COV-2 VERMarcos Stephens GORING CUTTER-SPINE SUPERVISOR Work Phone: Start: 15-57-5177Vojtl depression screening assessment Kacey Stephens GORING CUTTER-SPINE SUPERVISOR Work Phone: Start: 88-46-0630Oelmn depression screening assessment Rajni Steiner DO Work Phone: Start: 32-90-6765Euxdt depression screening assessment Rajni Steiner DO Work Phone: Start: 71-82-6512Agqsd metabolic panel calcium total Rajni Gimenez MD Work Phone: start: 62-38-9372XQBBI OXIMETRY, SPOTRajni Gimenez MD Work Phone: start: 80-92-2941Qhean metabolic panel calcium total Rajni Gimenez MD Work Phone: start: 77-46-3647Wiglg of lactateMary Lock MD Work Phone: Start: 07-25-2023 End: 32-01-7555Ulfdycr bacterial blood aerobic w/id isolatesMary Lock MD Work Phone: Start: 57-99-9566WFKQ/FLU A+B/RSV BY NAAT/MOLECULAR (M4RT COLLECTION TUBE)Mary Lock MD Work Phone: Start: 77-40-1836Ptpkn gases any combination ph pco2 po2 co2 zav3HyemmdMary Lock MD Work Phone: Start: 07-25-2023 End: 36-57-2956UUFPAIQMBTRPccoli Vohra MD Work Phone: Start: 58-45-8622Nsgxajpqui exam chest 2 viewsMary Lock MD Work Phone: Start: 44-32-3469VK ED CRITICAL CAREMary Lock MD Work Phone: Start: 97-23-5278Hfddf metabolic panel calcium total Mary Lock MD Work Phone: Start: 23-72-7250Klw routine ecg w/least 12 lds trcg only w/o i&Mary Jane Lock MD Work Phone: Start: 03-73-4626Eecjx depression screening assessment Rajni Steiner DO Work Phone: Start: 61-10-9383Redaq depression screening assessment Rajni Steiner DO Work Phone: Start: 92-15-1199Y-ray of lumbar spine, six views including bending viewsJEFFERSON Fowler Work Phone: Start: 00-97-9390Gfkbxzn of coronary artery bypass graftingHx of CABGGrace Meadows DO Work Phone: Start: 43-59-4762Dutgwtzawig observation [Identifier] in Cervix by Cyto stainSeloisemisti Meadows DO Work Phone: Start: 64-99-3382Ifqqk depression screening assessment Grace Meadows DO Work Phone: History of coronary artery bypass graftingHx of CABG Myriam Peacock MD Work Phone: History of coronary artery bypass graftingHistory of four vessel coronary artery bypass graftKacey Sims RN Plan of Treatment DateCare ActivityDetailAuthorStart: 31-96-7649Pgmuh BMI ScreeningAdult BMI ScreeningProMedica Health SystemStart: 12-74-2394Smamsml ScreeningTobacco ScreeningProMedica Health SystemStart: 87-88-3622Qezvc BMI ScreeningAdult BMI ScreeningProMedica Health SystemStart: 11-15-2613Nbczejg ScreeningTobacco ScreeningProMedica Health SystemStart: 37-15-6329Lzjdj BMI ScreeningAdult BMI ScreeningProMedica Health SystemStart: 39-66-9628Yrilkpx ScreeningTobacco ScreeningProMedica Health SystemStart: 53-68-9655Fmgwc BMI ScreeningAdult BMI ScreeningProMedica Health SystemStart: 73-51-5058Mnsqale ScreeningTobacco ScreeningProMedica Health SystemStart: 28-89-1822Brwmt BMI ScreeningAdult BMI ScreeningProMedica Health SystemStart: 49-88-3616Taevnul ScreeningTobacco ScreeningProMedica Health SystemStart: 92-77-0367Rocsn BMI ScreeningAdult BMI ScreeningProMedica Health SystemStart: 00-39-5108Gnamhhqgjv ScreeningDepression ScreeningProMedica Health SystemStart: 95-16-7791Scokxcs ScreeningTobacco ScreeningProMedica Health SystemStart: 96-14-8735Zrcyl BMI ScreeningAdult BMI ScreeningProMedica Health SystemStart: 42-43-8102Dqjmhjb ScreeningTobacco ScreeningProMedica Health SystemStart: 33-64-9667Lwpdq BMI ScreeningAdult BMI ScreeningProMedica Health SystemStart: 67-56-8569Mxvihgghzp ScreeningDepression ScreeningProMedica Health SystemStart: 16-81-3312Kifgaki ScreeningTobacco ScreeningProMedica Health SystemStart: 40-46-4825Sxeay BMI ScreeningAdult BMI ScreeningProMedica Health SystemStart: 17-80-4141Arbaabyinc ScreeningDepression ScreeningProMedica Health SystemStart: 32-98-9363Izpgaml ScreeningTobacco ScreeningProMedica Health SystemStart: 18-07-4888Nqqvx BMI ScreeningAdult BMI ScreeningProMedica Health SystemStart: 62-78-4714Hxfuehybzg ScreeningDepression ScreeningProUniversity Hospitals [facility] Medical Centerca Health SystemStart: 17-54-3845Nffap BMI ScreeningAdult BMI ScreeningProMedica Health SystemStart: 24-38-9526Ggkjzyb ScreeningTobacco ScreeningBrattleboro Memorial HospitalMedica Health SystemStart: 31-48-0232Clqjp BMI ScreeningAdult BMI ScreeningOhioHealth Nelsonville Health Centerca Health SystemStart: 33-52-7984Kdfvfkcwcm ScreeningDepression ScreeningOhioHealth Nelsonville Health Centerca Health SystemStart: 79-76-8652Ugoghmo ScreeningTobacco ScreeningOhioHealth Nelsonville Health Centerca Health SystemStart: 91-92-0798Kzhhji Use: Cardiovascular Statin Use: CardiovascularOhioHealth Nelsonville Health Centerca [facility] SystemStart: 58-09-0789Mjpmna Use: DiabeticStatin Use: DiabeticOhioHealth Grady Memorial Hospital SystemStart: 03-15-2025 End: 14-67-6304Bnpoypr encounter /19/2025 1:30 PM EST Office Visit [facility] [address] [place] [address] Rajni Steiner, [address] [place], [place] [facility] - Family MedicineStart: 03-08-2025 End: 35-76-3145Rejfvnz encounter mgumijjem31/12/2025 3:15 PM EST Office Visit [facility] MOSLEY [address] [place] [address] Sydnie Guerrero, DO [address] [place] [address] [facility] FNR PULMStart: 53-48-0206Lkcrvwjgalvxqd of varicella zoster vaccineZoster (Shingles) Vaccine (1 of 2)[facility] SystemComment on above:Postponed from 2012 (Patient Refused)Start: 67-23-4290Yqzno BMI ScreeningAdult BMI ScreeningOhioHealth Grady Memorial Hospital SystemStart: 03-07-2025 End: 14-72-8551Keclg metabolic 2000 panel - Serum or PlasmaBasic Metabolic Panel Lab Routine Chronic diastolic heart failure (CMS-HCC) Expected: 03/07/2025 (Ap proximate), Expires: 02/21/2026[facility] Work Phone: Comment on above:Expected: 03/07/2025 (Approximate), Expires: 02/21/2026Start: 81-45-8516Grrewzx ScreeningTobacco ScreeningOhioHealth Grady Memorial Hospital SystemStart: 84-60-2181Gwgfc BMI ScreeningAdult BMI ScreeningOhioHealth Grady Memorial Hospital SystemStart: 58-68-3747Rykptdjfr for malignant neoplasm of cervixPap SmearOhioHealth Grady Memorial Hospital SystemStart: 95-88-1385Kqcsbdu ScreeningTobacco Screening [facility] Hospitaltart: 02-08-2025 End: 55-28-2281Nasobty encounter pzvilzyos89/15/2025 1:30 PM EDT Office Visit [facility] [address] [place] [address] Rajni Steiner, [address] [facility] [place] [id number] [facility] - Family MedicineStart: 02-06-2025 End: 34-80-7296Gqoqdce encounter gdrqeqrqa35/13/2025 3:30 PM EDT Office Visit [facility] [address] [place] [address] Risa Summers MD [address] [place] [address] [facility] Heart Failure ClinicStart: 28-80-0734Enuax BMI ScreeningAdult BMI ScreeningProNorwalk Memorial Hospital SystemStart: 92-72-0073Ppqtucu ScreeningTobacco ScreeningProNorwalk Memorial Hospital SystemStart: 01-04-2025 End: 87-18-8787Ieerchkpb to same day surgery jhwyig3401/04/2025 10:00 AM EDT - 01/04/2025 11:00 AM EDT Surgery [facility] - Endoscopy [address] [place] [phone] Rajni Steiner, DO [address] [place] [address] ESOPHAGOGASTRODUODENOSCOPY DIAGNOSTIC [98688(CPT )][facility] - EndoscopyComment on above:ESOPHAGOGASTRODUODENOSCOPY DIAGNOSTIC [22969 (CPT )]Start: 94-05-8337Gmopybsxvu hospital visit by yoofenrhk36/10/2025 10:00 AM EDT Hospital Encounter [facility] Endoscopy [address] [place] [phone] Rajni Steiner, DO [address] [place] [address] [facility] - EndoscopyStart: 01-04-2025 End: 89-84-3989Ahxgmubqphyxmyyjmjkzpjuaov transoral diagnosticFREMONT [facility] Start: 01-03-2025 End: 06-63-7822nxvaclwswy61/09/2025 3:50 PM EDT Support Visit [facility] - Pre Admit [address] [facility] [place] [id number] [facility] - Pre AdmitStart: 35-36-5732Uoyeo BMI ScreeningAdult BMI ScreeningProNorwalk Memorial Hospital SystemStart: 86-25-6849Liutikxghv ScreeningDepression ScreeningProNorwalk Memorial Hospital SystemStart: 97-73-8093Qeqnxal ScreeningTobacco ScreeningProNorwalk Memorial Hospital SystemStart: 12-21-2024 End: 39-86-6380Gtqdqia encounter uojcsjfdd24/27/2025 7:30 AM EDT Appointment [facility] Cardiovascular [address] [place] [address] Odessa Cook, [employer] C[employer]STEAM CLE[employer]ER [address] [place] [address] [facility] CardiovascularStart: 12-20-2024 End: 29-01-3591Kyrwiczja to same day surgery mbmkkc6612/20/2024 10:00 AM EDT - 12/20/2024 11:00 AM EDT Surgery [facility] - Endoscopy [address] [place] [id number] Rajni Steiner, DO [address] [place] [address] ESOPHAGOGASTRODUODENOSCOPY DIAGNOSTIC [83160(CPT )][facility] EndoscopyComment on above:ESOPHAGOGASTRODUODENOSCOPY DIAGNOSTIC [41889 (CPT )]Start: 12-20-2024 End: 39-53-3952Huxkvwybxucdjnytwzpkueuvxi transoral diagnostic ESOPHAGOGASTRODUODENOSCOPY DIAGNOSTIC microcytic anemia 12/20/2024 10:00 AM EDT [facility]: 63-01-5287Eecwsngxeh hospital visit by physician 12/20/2024 10:00 AM EDT Hospital Encounter [facility] - Endoscopy [address] [facility] [place] [phone] Rajni Steiner, DO [address] [place] [address] [facility] - EndoscopyStart: 12-19-2024 End: 65-20-3497fowrdovhrx43/25/2025 2:40 PM EDT Support Visit [facility] - Pre Admit [address] [place] [place] [address] [facility] - Pre AdmitStart: 50-74-4522Xebjh BMI ScreeningAdult BMI ScreeningProUniversity Hospitals Cleveland Medical Centerca Health SystemStart: 82-94-4106Ecdapsq ScreeningTobacco ScreeningPremier Health Health SystemStart: 12-08-2024 End: 84-23-4412czblkbsgup19/14/2025 9:00 AM EDT Lab [facility] - Lab [address] [place] [address] [phone] Hospital [facility] - LabStart: 28-15-7510Kqfbv BMI ScreeningAdult BMI ScreeningProUniversity Hospitals Cleveland Medical Centerca Health SystemStart: 12-07-2024 End: 13-68-4650Jlvmcyz encounter xjgqtaoho73/13/2025 2:00 PM EDT [facility] [address] [facility] [place] [address] Rajni Steiner, [address] [facility] [place] [place] [facility] - Family MedicineStart: 19-15-7390Hqkwmlu ScreeningTobacco ScreeningOhioHealth Grady Memorial Hospital SystemStart: 77-91-0674Nmhtt BMI ScreeningAdult BMI ScreeningOhioHealth Nelsonville Health Centerca [facility] SystemStart: 12-06-2024 End: 44-23-0700Zivvqsx encounter sxipohhum32/12/2025 10:30 AM EDT [facility] [address] [place], [place] [address] [address] [phone] Rick Hector [facility] - Total RehabStart: 11-28-2024 End: 58-08-0692Stke complete W/O contrastEcho complete W/O contrast Echocardiography Routine Chronic heart failure with preserved ejection fraction ([facility]-HCC) Pulmonary hypertension ([facility]) Nonrheumatic tricuspid valve regurgitation Essential hypertension Atherosclerosis of lime coronary artery of lime heart without angina pectoris History of four vessel coronary artery bypass graft NSTEMI (non-ST elevated myocardial infarction) ([facility]) Expected: 11/28/2024, Expires: 11/28/2025Ohio[facility] Hospital SystemComment on above:Expected: 11/28/2024, Expires: 11/28/2025Start: 11-28-2024 End: 42-28-6945Fqlzcox encounter torqaqadu44/04/2025 2:00 PM EDT Office Visit [facility] [address] [place] [address] Odessa Cook, GORING C[employer]STEAM CLE[employer]ER [address] [place] [address] [facility] Heart Failure ClinicStart: 11-07-2024 End: 60-85-1791Nksobks encounter zcsyxzeto75/14/2025 2:30 PM EDT [facility] [address] [place] [address] Rajni Steiner, [address] [facility] [place], [place] [facility] - Family MedicineStart: 11-07-2024 End: 21-29-7353XF Knee - right 3 ViewsX-ray knee right 3 views Imaging Routine Patellar tendinitis of right knee Expected: 11/07/2024, Expires: 11/07/2025 [facility] Work Phone: Comment on above:Expected: 11/07/2024, Expires: 11/07/2025Start: 11-02-2024 End: 75-11-2558Unzhwrf encounter sdgmeiicy74/09/2025 8:30 AM EDT Appointment [facility] - Radiology [address] [place] [address] [phone] Medical Specialty Hospital [facility] - RadiologyStart: 11-01-2024 End: 14-52-0861Smsqjyz encounter yvyxzkhva95/08/2025 4:30 PM EDT Appointment [facility] - Total Rehab [address] [place] [address] Cervicogenic headacheProEncompass Health Rehabilitation Hospital Of [facility] Alabama - Total RehabComment on above:Cervicogenic headacheStart: 82-61-7506Havcz BMI ScreeningAdult BMI ScreeningOhioHealth Grady Memorial Hospital SystemStart: 63-27-2939Dvyavznegx ScreeningDepression ScreeningProNorwalk Memorial Hospital SystemStart: 54-41-2431Ihwuouw ScreeningTobacco ScreeningOhioHealth Grady Memorial Hospital SystemStart: 10-27-2024 End: 64-10-9224LS Gastrointestinal tract upper Views W air contrast PO and W barium contrast POFluoroscopy upper GI with esophagus Imaging Routine Nausea and vomiting, unspecified vomiting type Expected: 10/27/2024, Expires: 10/27/2025 [facility] SystemComment on above:Expected: 10/27/2024, Expires: 10/27/2025Start: 23-97-6860Rhwjs BMI ScreeningAdult BMI ScreeningProNorwalk Memorial Hospital SystemStart: 35-89-5432Oiskzwi ScreeningTobacco ScreeningOhioHealth Grady Memorial Hospital SystemStart: 10-07-2024 End: 30-17-3527Jofejhn encounter ovhmnlzob47/13/2025 11:30 AM EDT Office Visit [facility] [address] [place], [place] [address] [address] Rajni Steiner, DO [address] [place] [address] [facility] - Family MedicineStart: 51-37-7010Jkqse BMI ScreeningAdult BMI ScreeningProUniversity Hospitals Cleveland Medical Centerca [facility] SystemStart: 47-49-1388Ezpidhymru ScreeningDepression ScreeningProMedica Health SystemStart: 58-29-3194Tdmpxpn ScreeningTobacco ScreeningProMedica Health SystemStart: 84-42-3094Htbpu BMI ScreeningAdult BMI ScreeningProMedica Health SystemStart: 52-38-1065Mjcxtvewvp ScreeningDepression ScreeningProMedica Health SystemStart: 97-57-1883Evxgwop ScreeningTobacco ScreeningProMedica Health SystemStart: 09-21-2024 End: 26-15-7816Rxbrfqs encounter ljrqxsoju95/28/2025 3:00 PM EDT Office Visit [facility] [address] [place] [address] Sydnie Guerrero, [address] [place] [address] ArrivedNOMS FNR PULMComment on above:ArrivedStart: 09-17-2024 Adult BMI ScreeningAdult BMI ScreeningProMedica Health SystemStart: 09-08-2024 Adult BMI ScreeningAdult BMI ScreeningProMedica Health SystemStart: 09-08-2024 Depression ScreeningDepression ScreeningProMedica Health SystemStart: 09-08-2024 Tobacco ScreeningTobacco ScreeningProMedica Health SystemStart: 31-19-8426Fgabn BMI ScreeningAdult BMI ScreeningProMedica Health SystemStart: 23-42-1450Zldduky ScreeningTobacco ScreeningProMedica Health SystemStart: 77-97-6033Fnwre BMI ScreeningAdult BMI ScreeningProMedica Health SystemStart: 37-26-0914Ysnokngmuh ScreeningDepression ScreeningProMedica Health SystemStart: 76-13-4239Wrpedbl ScreeningTobacco ScreeningProMedica Health SystemStart: 50-60-4998Osehr BMI ScreeningAdult BMI ScreeningProMedica Health SystemStart: 74-72-1609Fhnxznf ScreeningTobacco ScreeningProMedica Health SystemStart: 60-71-9760Drunw BMI ScreeningAdult BMI ScreeningProMedica Health SystemStart: 07-07-6141Cgwzxil ScreeningTobacco ScreeningProMedica Health SystemStart: 67-41-5964Ceblx BMI ScreeningAdult BMI ScreeningProMedica Health SystemStart: 57-46-5360Gsehrgumzl ScreeningDepression ScreeningProMedica Health SystemStart: 16-49-4472Tgcsdtd ScreeningTobacco ScreeningProMedica Health SystemStart: 06-29-2024 End: 98-12-4786Pggzsjm encounter mkqxdyxgi75/05/2025 3:00 PM EST Office Visit [facility] [address] [place] [address] Sydnie Guerrero, DO [address] [place] [address] [facility] FNDasha PULMStart: 57-94-1974Unnus BMI ScreeningAdult BMI ScreeningProMedica Health SystemStart: 64-36-4072Vflsatj ScreeningTobacco ScreeningProMedica Health SystemStart: 06-08-2024 End: 60-21-4497Qvjgrwd encounter blnpfuqee61/12/2025 1:00 PM EST Office Visit [facility] [address] [place] [address] Rajni gonsalez, [address] [facility], [id number] [facility] - Family MedicineStart: 61-73-5782Gkase BMI ScreeningAdult BMI ScreeningProMedica Health SystemStart: 86-86-3542Iywintilsm ScreeningDepression ScreeningProMedica Health SystemStart: 05-79-7041Mquuaip ScreeningTobacco ScreeningProMedica Health SystemStart: 55-77-7172Cahrg BMI ScreeningAdult BMI ScreeningProMedica Health SystemStart: 74-53-9398Citgwjs ScreeningTobacco ScreeningProMedica Health SystemStart: 03-17-2024 End: 39-21-1990Jcoyyyb encounter aqazypihs86/21/2024 1:00 PM EST Consult [facility] [address] [place] [address] Sydnie Guerrero DO [address] [place] [address] ArrivedNOMS PULMComment on above:ArrivedStart: 03-10-2024 End: 20-72-8206Zgconcx encounter gyqcvgxvw47/14/2024 3:00 PM EST Office Visit [facility] [address] [place] [address] Grace Meadows, DO [address] [address] [facility]/Sleep MedicineStart: 03-07-2024 End: 17-38-7007Dyydslx encounter jsytxvkro20/11/2024 1:00 PM EST Office Visit [facility] - Family Medicine [address] [place] [address] Rajni Steiner, DO [address] [place], [place] [facility] - Family MedicineStart: 02-19-2024 End: 59-04-9966Ekreohk encounter dvevivdof02/25/2024 10:45 AM EDT Office Visit [facility] [address] [facility] [address] [place] [address] Alex Amos MD [address] [place] [address] Saqib Giles MD [address] [place] [phone] (Work) [facility] CardiologyStart: 02-09-2024 End: 07-98-7961Gicusww encounter pcjzkwqza12/15/2024 1:30 PM EDT Office Visit [facility] [address] [place] [address] Eusebia Huertas, DO [address] [place] [address] [facility]THOPAEDICSStart: 01-21-2024 End: 08-64-5252Mhfndzd encounter fsgqmvxok64/26/2024 10:00 AM EDT Office Visit [facility] [address] [facility] [place] [address] Grace Meadows, DO [address] [address] [facility] Pul[facility]/Sleep MedicineStart: 01-19-2024 End: 76-71-8256Hkuqeqa encounter procedureNOMS CI ORTHOPAEDICSStart: 01-14-2024 End: 89-67-9729Bllfibi encounter dbisesxyf09/19/2024 3:00 PM EDT Office Visit [facility] [address] [place] [address] Grace Meadows, DO [address] [address] [facility]/Sleep MedicineStart: 01-12-2024 End: 34-88-9421Ylhjgsb encounter mzxieqqfm42/17/2024 10:45 AM EDT Office Visit [facility] [address] [place] [address] Eusebia Huertas, DO [address] [place] [address] [facility] ORTHOPAEDICSStart: 01-04-2024 End: 20-79-9786Ugglrvd encounter xpeqenwea07/09/2024 1:00 PM EDT Office Visit [facility] - Family Medicine [address] [place] [address] Rajni Steiner, DO [address] [facility] [place], [id number] [facility] - Family MedicineStart: 12-29-2023 End: 27-62-0700Bckekba encounter gyarmxgje92/03/2024 10:45 AM EDT Office Visit [facility] [address] [facility] 150 [place] [address] Eusebia Huertas, [address] [facility] [address] [place] [address] Compression fracture of T6 vertebra with routine healing, subsequent encounter; Compression fracture of T8 vertebra with routine healing, subsequent encounter; Osteoporotic compression fracture of vertebra with routine healing, subsequent encounterNOMS CI ORTHOPAEDICSComment on above:Compression fracture of T6 vertebra with routine healing, subsequent encounter; Compression fracture of T8 vertebra with routine healing, subsequent encounter; Osteoporotic compression fracture of vertebra with routine healing, subsequent encounterStart: 18-30-3441Aikuoyxwz vaccinationInfluenza VaccineOhioHealth Nelsonville Health Centerca Health SystemStart: 12-07-2023 End: 67-86-8777Komtorjk Hcepjre6312/07/2023 8:00 PM EDT Clinical Support [facility] - Sleep Disorders [address] [place] [address] [place] [address] Grace Meadows, DO [address] [address] [facility] - Sleep DisordersStart: 12-03-2023 End: 32-55-9130Ohlykdx encounter ynucyuxnu03/08/2024 10:00 AM EDT Office Visit [facility] [address] [facility] [place] [address] Grace Meadows, DO [address] [address] [facility]/Sleep MedicineStart: 11-02-2023 End: 03-60-1715Pgolexz encounter fkuscqkiq54/08/2024 3:30 PM EDT Office Visit [facility] - Family Medicine [address] [place] [address] Rajni Steiner, DO [address] [place], [place] [facility] - [facility] MedicineStart: 10-06-2023 End: 47-22-9210Fyuucnj encounter procedureKind[facility] - Mammogram DEXAStart: 09-30-2023 End: 43-39-8612Jibuway encounter vyboxdlmp09/05/2024 1:30 PM EDT Office Visit [facility] [address] [place] [address] Rajni Steiner, DO [address] [place], [place] [facility] - [facility] MedicineStart: 09-11-2023 End: 19-27-6718Rkwyiub encounter eiyximkzk87/17/2024 1:00 PM EDT Appointment [facility] [place] - Mammography [address] [place] [address] [phone] Harris [place] - MammographyStart: 09-10-2023 End: 94-71-0886Nxnlaaf encounter procedureKind[facility] - VascularStart: 09-10-2023 End: 41-38-4268Acefjfm encounter izjbgvqym16/16/2024 8:15 AM EDT Appointment [facility] - MRI Imaging [address] [place] [address] Rajni Steiner, DO [address] [place] [address] [facility] - MRI ImagingStart: 09-09-2023 End: 78-66-4093Uiusctb encounter xmnuuiypj22/15/2024 1:00 PM EDT Office Visit [facility] Family Medicine [address] [place] [address] Rajni Steiner, DO [address] [facility], [id number] [facility] Internal Medicine - Family MedicineStart: 08-11-2023 End: 28-35-8051Wgksgfvk Aopprlr0108/11/2023 8:00 PM EDT Clinical Support [facility] - Sleep Disorders [address] [place] [address] Grace Meadows, DO [address] [address] [facility] - Sleep DisordersStart: 08-10-2023 End: 22-11-4106Jnsmycc encounter ckurczbma67/15/2024 1:00 PM EDT [facility] [address] [place] [address] Rajni Steiner, DO [address] [facility] [place], [id number] [facility] Internal Medicine - Family MedicineStart: 08-03-2023 End: 35-03-0617Ofevlsk encounter imyymgqwa25/08/2024 10:00 AM EDT Office Visit [facility] Heart Failure Clinic [address] [place] [address] Cynthia Buchanan, GOR[employer] C[employer]STEAM CLE[employer]ER [address] [place], [place] [address] [facility] - Heart Failure ClinicStart: 07-27-2023 End: 99-64-1872Evpxmxz encounter /01/2024 8:30 AM EDT Office Visit [facility] Heart Failure Clinic [address] [place] [address] Cynthia Buchanan, GORING C[employer]STEAM CLE[employer]ER [address] [place] [address] [facility] - Heart Failure ClinicStart: 07-01-2023 End: 86-86-1527Egtnwvk encounter procedureKindred Hospital [facility] - Pulmonary FunctionStart: 06-29-2023 End: 62-90-1099Sckgomy encounter razwtnoer35/04/2024 12:00 PM EST Office Visit [facility] Family Medicine [address] [place] [address] Rajni Steiner, DO [address] [place] [address] [facility] - Family MedicineStart: 06-25-2023 End: 00-44-9711Fhlbaso encounter rcqjmsmsa66/29/2024 10:00 AM EST Office Visit [facility] [address] [facility] [place] [address] Grace Meadows, DO [address] [address] [facility] Pulmonary/Sleep MedicineStart: 06-01-2023 End: 62-04-7515Xtluxyi encounter hojyoetni36/05/2024 1:30 PM EST Office Visit [facility] - Family Medicine [address] [place] [address] Rajni Steiner, DO [address] [place] [id number] [facility] Internal Medicine - Family MedicineStart: 98-30-5420Qwprkpbzv vaccination Influenza VaccineOhioHealth Grady Memorial Hospital SystemStart: 39-14-8443XEH ( or age 60+ yrs) (1 - Risk 60-74 years 1-dose series)RSV ( or age 60+ yrs) (1 - Risk 60-74 years 1-dose series)[facility] SystemStart: 08-06-2021 Depression ScreeningDepression ScreeningOhioHealth Grady Memorial Hospital SystemStart: 2012 Administration of varicella zoster vaccineZoster (Shingles) Vaccine (1 of 2) [facility] SystemStart: 21-40-9632Vzjkhflqpqwhni of varicella zoster vaccineZoster (Shingles) Vaccine (1 of 2)[facility] SystemStart: 45-78-3521MSzV,Tdap and Td Vaccines (1 - Tdap)DTaP,Tdap and Td Vaccines (1 - Tdap)[facility] SystemStart: 69-74-8150Ifprb BMI Follow Up PlanAdult BMI Follow Up PlanOhioHealth Grady Memorial Hospital SystemStart: 91-04-1716Gzgvrdrt foot examination Diabetic Foot ExamProNorwalk Memorial Hospital SystemStart: 39-94-6683Uxziueyh screening Diabetic Ophthalmology ExamDorothea Dix Hospitaltart: 25-60-5986Pcvfnk Use: CardiovascularStatin Use: CardiovascularOhioHealth Grady Memorial Hospital SystemStart: 1962 Statin Use: DiabeticStatin Use: DiabeticOhioHealth Grady Memorial Hospital SystemStart: 1962 Tobacco CounselingTobacco CounselingAshtabula General HospitalBacteria identified in Blood by Aerobe cultureProUniversity Hospitals Cleveland Medical Centerca Work Phone: End: 28-09-5329Rgyzg metabolic 1999 panel - Serum or PlasmaBasic Metabolic Panel Lab Routine Chronic heart failure with preserved ejection fraction ([facility]-HCC) 1 Occurrences starting 11/02/2023 until 11/01/2024Ohio[facility] Hospital SystemComment on above:1 Occurrences starting 11/02/2023 until 11/01/2024 End: 60-28-3702Nfmhg metabolic 2000 panel - Serum or PlasmaBasic Metabolic Panel Lab Routine Chronic heart failure with preserved ejection fraction ([facility]) P ulmonary hypertension ([facility]) Nonrheumatic tricuspid valve regurgitation Essential hypertension Atherosclerosis of lime coronary artery of lime heart without angina pectoris History of four vessel coronary artery bypass graft NSTEMI (non-ST elevated myocardial infarction) ([facility]) 1 Occurrences starting 11/28/2024 until 11/28/2025[facility] Work Phone: Comment on above:1 Occurrences starting 11/28/2024 until 11/28/2025 End: 08-37-9117Lgrep metabolic 2000 panel - Serum or PlasmaBasic Metabolic Panel Lab Routine Chronic heart failure with preserved ejection fraction ([facility]) E ssential hypertension Pulmonary hypertension ([facility]) Nonrheumatic tricuspid valve regurgitation Atherosclerosis of lime coronary artery of lime heart without angina pectoris History of four vessel coronary artery bypass graft 1 Occurrences starting 11/30/2024 until 11/30/2025[facility] Work Phone: Comment on above:1 Occurrences starting 11/30/2024 until 11/30/2025 End: 66-33-4474Kaqzo metabolic 2000 panel - Serum or PlasmaBasic Metabolic Panel Lab Routine Chronic diastolic heart failure ([place] [facility] Pulmonary hypertension ( [facility]) Nonrheumatic tricuspid valve regurgitation 1 Occurrences starting 02/06/2025 until 02/06/2026[employer] Work Phone: Comment on above:1 Occurrences starting 02/06/2025 until 02/06/2026 End: 49-92-8556ESF W Auto Differential panel - BloodCBC auto differential Lab Routine Chronic heart failure with preserved ejection fraction ([facility]) 1 Occurrences starting 11/02/2023 until 11/01/2024[employer] Work Phone: Comment on above:1 Occurrences starting 11/02/2023 until 11/01/2024 End: 82-83-2183IZX W Auto Differential panel - BloodCBC auto differential Lab Routine Stage 3a chronic kidney disease ([facility]) 1 Occurrences starting 0 07/07/2024 until 07/07/2025[employer] Work Phone: Comment on above:1 Occurrences starting 07/07/2024 until 07/07/2025 End: 47-36-9227Fxlsosqdqhrzp metabolic 2000 panel - Serum or PlasmaComprehensive metabolic panel Lab Routine Stage 3a chronic kidney disease ([facility]) 1 Occurrences starting 07/07/2024 until 07/07/2025[email or web address] SystemComment on above:1 Occurrences starting 07/07/2024 until 07/07/2025 End: 73-86-5680Zdrpbmxdjxapvi vitamin b-12Vitamin B12 Lab Routine B12 deficiency 1 Occurrences starting 11/02/2023 until 11/01/2024[email or web address] SystemComment on above:1 Occurrences starting 11/02/2023 until 11/01/2024 End: 17-02-0705Hjijyxhroubppy vitamin b-12Vitamin B12 Lab Routine B12 deficiency 1 Occurrences starting 07/07/2024 until 07/07/2025Pro[email or web address] SystemComment on above:1 Occurrences starting 07/07/2024 until 07/07/2025 End: 08-90-4541HwrszsjhfqolqkybfoexjnbovxGOL GI Routine Microcytic anemia Gastro-esophageal reflux disease without esophagitis 1 Occurrencesstarting 12/15/2024 until 12/15/2025[employer] Work Phone: Comment on above:1 Occurrences starting 12/15/2024 until 12/15/2025Esophagogastroduodenoscopy transoral diagnostic ESOPHAGOGASTRODUODENOSCOPY DIAGNOSTIC Microcytic anemiaFREMONT ENDOSCOPY End: 92-48-6981Xjpjnzvoux A1c/Hemoglobin.total in BloodHemoglobin A1c Lab Routine IFG (impaired fasting glucose) 1 Occurrences starting 07/07/2024 until 07/07/2025Pro[email or web address] SystemComment on above:1 Occurrences starting 07/07/2024 until 07/07/2025 End: 40-30-3823Kjbdveugui A1c/Hemoglobin.total in BloodHemoglobin A1c Lab Routine Type 2 diabetes mellitus with stage 3a chronic kidney disease, without long-term current use of insulin ([facility]) 1 Occurrences starting 10/27/2024 until 10/27/2025[employer] Work Phone: Comment on above:1 Occurrences starting 10/27/2024 until 10/27/2025Hemoglobin A1c/Hemoglobin.total in BloodHemoglobin A1c Lab Routine Type 2 diabetes mellitus with stage 3a chronic kidney disease, without long-term current use of insulin ([facility]) 10/27/2024 4:57 PM [facility] End: 26-83-5470Lvzcq 1996 panel - Serum or PlasmaLipid profile Lab Routine 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 ([facility]) 1 Occurrences starting 07/07/2024 until 07/07/2025 [facility] [employer] SystemComment on above:1 Occurrences starting 07/07/2024 until 07/07/2025 End: 01-16-0686Ekwdwivjt [Mass/volume] in Serum or PlasmaMagnesium Lab Routine Chronic heart failure with preserved ejection fraction ([facility]) 1 Occurrences starting 11/02/2023 until 11/01/2024[email or web address] SystemComment on above:1 Occurrences starting 11/02/2023 until 11/01/2024 End: 26-34-7189Aofjcqdeffsmlbe 4 or more parameters with PAP titration Polysomnography 4 or more parameters with PAP titration Sleep Center Routine BONY (obstructive sleepapnea) Hypoxemia associated with sleep 1 Occurrences starting 08/14/2023 until 08/13/2024[employer] Work Phone: Comment on above:1 Occurrences starting 08/14/2023 until 08/13/2024 End: 34-48-5298Hcmxwnohp function test Spirometry (Flow Volume Loop) pre/post short acting bronchodilator w/ DLCO (diffusion study)Pulmonary function test Spirometry (Flow Volume Loop) pre/post short acting bronchodilator w/ DLCO ( diffusion study) PFT Routine Chronic obstructive pulmonary disease, unspecified COPD type ([facility])1 Occurrences starting 06/25/2023 until 06/24/2024[facility] HospitalCollegeFanz SystemComment on above:1 Occurrences starting 06/25/2023 until 06/24/2024 End: 42-20-5586Bkcby Night Sleep StudySplit Night Sleep Study Sleep Center Routine BONY treated with BiPAP 1 Occurrences starting 06/25/2023 until 06/24/2024[employer] Work Phone: Comment on above:1 Occurrences starting 06/25/2023 until 06/24/2024 Immunizations Immunization DateImmunizationNotesCare VtadtpydNwktmgxx14-20-1276zbmepjzjmr skin test; purified protein derivative solution, intradermalLeanne Cesar DO Work Phone: [facility] HospitalZsprfdmdwc88-94-6325eiivasheej skin test; unspecified formulationKacey Sims Valley HealthRxwayf66-52-1267knrjstbsaj skin test; purified protein derivative solution, intradermalLeanne Cesar DO Work Phone: noSaint [facility] ServicesPuracthpsc58-44-2841wyhamhyels skin test; unspecified formulationKacey [facility] Payers DatePayer CategoryPayerPolicy [id number] 2025Unknown 2024Medicare (Managed Care)[id number] 2024Medicare [id number] [id number] 2024Private Health [id number]-nzd [id number] 2022Medicare [id number] Insurance [id number] [id number] [id number] [id number] [id number] 2.16.840.1.864451.3.579.2.469449-35-3681Ixnfpqg5386389 2.16.840.1.043127.3.579.2.941491-43-2513Nqhnboz2802295 2.16.840.1.902130.3.579.2.960349-40-0334Rfpsnno7663750 2.16.840.1.166039.3.579.2.134496-62-7834Ipcprqy2235242 2.16.840.1.727362.3.579.2.514762-35-8622Iticuey3910580 2.16.840.1.385920.3.579.2.178136-69-1956Pvvpriz1876763 2.16.840.1.402192.3.579.2.898498-13-3175Gpcdgkz6169079 2.16.840.1.365961.3.579.2.994533-81-5136Yfjouob1540101 2.16.840.1.135578.3.579.2.188135-47-5040Horihoa4930293 2.16.840.1.210706.3.579.2.401146-97-7754Tzsqqpm1253422 2.16.840.1.761633.3.579.2.006027-54-3533Nzfgcop8575778 2.16.840.1.279803.3.579.2.850226-72-4270Wavyisp2412176 2.16.840.1.338732.3.579.2.315890-06-9901Fygckyn3268787 2.16.840.1.828999.3.579.2.209943-92-7975Icppwfn2880600 2.16.840.1.064395.3.579.2.599948-45-6005Yhybjst337094678 2.16.840.1.030503.3.579.2.866546-68-8561Emzwfur76334057 2.16.840.1.083513.3.579.2.512709-66-5433Lzrptjo49519001 2.16.840.1.733585.3.579.2.768011-63-2332Elmgdrb30167550 2.16.840.1.008630.3.579.2.364726-07-7738Vxwmhsq36655955 2.16.840.1.971306.3.579.2.170056-65-2826Cxrnuxm9863041 2.16.840.1.649734.3.579.2.374557-82-6185Mpqrxxz0045764 2.16840.1.488962.3.579.2.118255-08-1777Dqreqpw9374338 2.16840.1.437151.3.579.2.360863-02-6419Ofojlgt4706290 2.16.840.1.479046.3.579.2.297670-25-1759Gvvghir6077416 2.16.840.1.141982.3.579.2.846264-57-3221Vptyrdu9167255 2.16.840.1.465536.3.579.2.790256-37-7646Zhzetjl3905165 2.16840.1.931157.3.579.2.403887-55-7028Vhweuxa9234203 2.16.840.1.549801.3.579.2.743897-70-3374Ssblqru2461367 2.16840.1.293524.3.579.2.864575-75-1117Vzdolkh9904010 2.16.840.1.138780.3.579.2.651202-30-4329Czosksa031931946 2.16840.1.254796.3.579.2.308291-67-2944Jegzahl984552539 2.16.840.1.318249.3.579.2.807882-41-5115Pdwqwwb469924894 2.16.840.1.216630.3.579.2.723807-59-7047Gcimsjh554855744 2.16.840.1.106880.3.579.2.952759-71-7659Kmvnbaf078442006 2.16.840.1.401241.3.579.2.405435-08-3098Zomhsuc79663777 2.16.840.1.529237.3.579.2.692314-45-0892Kdbjmca32599244 2.840.1.771405.3.579.2.320537-42-6017Wgcpiya906188009 2.16840.1.639675.3.579.2.120003-59-2701Yamjjis66350346 2.16.840.1.711145.3.579.2.913127-53-0348Aznoyrc928936686 2.16.840.1.103789.3.579.2.14101-80-1898Eoryfjl651651844 2.16840.1.157472.3.579.2.11413-21-9009Hjqyzkn320459314 2.16.840.1.592639.3.579.2.72945-98-1744Jegrxnx462970959 2.16.840.1.587119.3.579.2.39631-08-1481Wvztwbd981532008 2.16.840.1.759936.3.579.2.47356-05-9005Rkvuimr086693429 2.16840.1.762759.3.579.2.60948-45-7909Nqeypsc000490410 2.16840.1.857297.3.579.2.996426-72-9986Lepwlds528503529 2.840.1.784733.3.579.2.034492-13-7446Yeftrhz731172446 2.840.1.168808.3.579.2.297159-75-1403Kkiovlr212363512 2.840.1.027145.3.579.2.121013-38-3398Lfebplu829545174 2.0.1.926652.3.579.2.403048-84-8675Xunpfga805703784 2.840.1.766706.3.579.2.742011-58-8049Ppzirus312553389 2.0.1.131684.3.579.2.572202-17-8159Ftbcekd130631950 2.840.1.238678.3.579.2.076888-26-2627Ctzeqws991280359 2..1.089720.3.579.2.306831-60-0154Mtfmtge529729856 2..1.201086.3.579.2.014193-02-7890Xnnivgs989643106 2..1.812140.3.579.2.237778-73-9852Nmoqzbv723136496 2.0.1.846146.3.579.2.264623-12-0964Yiqpwbf179503064 2.840.1.858465.3.579.2.170238-52-3332Xeijkvw558200475 2.840.1.484591.3.579.2.841104-71-1798Xwthqdw287808608 2.840.1.658669.3.579.2.175518-37-4783Hktzufl717096896 2.16.840.1.065043.3.579.2.807908-80-3438Knevmew144318505 2.16.840.1.045384.3.579.2.110160-61-3530Yzgnfyf527360903 2.16.840.1.387632.3.579.2.779600-16-7113Ybjmhzg148284342 2.16.840.1.869453.3.579.2.813442-53-6195Voznocz820583587 2.16.840.1.837490.3.579.2.1286MedicaidMedicaid Out of [id number] 2.16.840.1.602315.19 [id number] 2.16.840.1.684322.3.579.2.199Okbgnwv66544446 2.16840.1.961407.3.579.2.531 Social History DateTypeDetailFacilityStart: 09-25-1981 End: 99-94-5379Skktrmn smoking status NHISSmoker (finding)[facility] Hospitalt[facility]: 10-12-0540[facility] 07-25-2023 End: 19-65-8237Fup [facility] At [facility]: 09-24-2023 End: 42-63-6494Ujlvoir smoking status NHISEx-smokerDorothea Dix Hospitaltart: 09-25-1981 End: 82-78-4130Vpfjjbc of tobacco useCigarette SmokerOhioHealth Grady Memorial Hospital System Start: 01-22-2024 End: 76-87-2318Bltjjah use and exposureFormer smokeless tobacco userDorothea Dix Hospitaltart: 01-22-2024 End: 49-23-6285Vvszrilzy beverage intakeEx-drinker (finding)[facility] SystemStart: 07-25-2023 End: 67-62-9049Msdoafx of Social functionOhioHealth Grady Memorial Hospital SystemStart: 95-22-3978Lch assigned at birthNot on [facility] [place] by [facility] HealthStart: 09-25-1981 End: 73-27-4969Ukvdqem smoking status NHISSmokes tobacco dailyOhioHealth Grady Memorial Hospital SystemStart: 08-11-2023 End: 72-13-6876Eddfisj use and exposureSmokeless tobacco non-userOhioHealth Grady Memorial Hospital SystemHas the electric, gas, oil, or water company threatened to shut off services in your home in past 12MoNCity HospitalAre you now , , , , never or living with a partner? [facility] HospitalHow often to you have a drink containing alcohol?Never [facility] Hospitaltart: 12-70-4255Tmd many standard drinks containing alcohol do you have on a typical day?Patient does not drinkOhioHealth Grady Memorial Hospital SystemHow hard is it for you to pay for the very basics like food, housing, medical care, and heatingSomewhat hardProKettering Health PrebleDo you feel stress - tense, restless, nervous, or anxious, or unable to sleep at night because your mind is troubled all the time - these days [OSQ]Only a littleDorothea Dix Hospitaltart: 28-99-6160Sdppkjp Comment5-6 cigerettes a dayOhioHealth Grady Memorial Hospital SystemStart: 15-02-0610Xqmhbta Commentlast use 15 years agoOhioHealth Grady Memorial Hospital SystemStart: 72-94-1944EpmJhdrdb (finding)[facility] SystemStart: 06-49-6078Bmyxrp identityIdentifies as female gender (finding)[facility] SystemStart: 76-94-8110Lwbche orientationHeterosexual (finding)[facility] HospitalHistory of tobacco useChews TobaccoOhioHealth Grady Memorial Hospital SystemStart: 04-29-2023 End: 91-06-6255Nwsqkkw intakeCurrent non-drinker of alcohol (finding)[facility] SystemHow hard is it for you to pay for the very basics like food, housing, medical care, and heatingNot very hardAshtabula General Hospital Medical Equipment Procedure CodeEquipment CodeEquipment Original TextEquipment IdentifierDatesSj Monreal 2.75x28 Rx - [id number], [id number] FDAStart: 14-11-0057SqmSj Monreal 2.75x8 Rx - [id number], [id number] FDAStart: 01-09-2020 Goals DatePatient GoalDesired Activity/StatePersonal health goalComment on above: Evaluation of progress towards goal: under assessmentPersonal health goalComment on above: Evaluation of progress towards goal: feeling better, monitor for home B8Ufkgxrnt health goalComment on above: Evaluation of progress towards goal: Pt's goal is to go to SNF at discharge for short term rehab. -DEENA LOREDO 04/25/23 3:55 PM Personal health goalComment on above: Evaluation of progress towards goal: feeling betterPersonal health goalPersonal health goal Functional Status DateAssessmentResultFacilityAshtabula General Hospital Clinical Notes 12-11-2022 to 02-24-2025 Note Date & HadxKcvuJqyhehvc28-68-1893 Miscellaneous Notes* Telephone Encounter - Dejah Barger RN - 02/24/2025 1:00 AM EDT Please sign and route if you agree. Thank you VENKATA 09/01/24 ABN CMP 02/22/25 - h/o CKD stage 3 documented in this encounterAshtabula General Hospital10-31-2025 Telephone encounter Note* Telephone Encounter - Dejah Barger RN - 02/24/2025 1:00 AM EDT Please sign and route if you agree. Thank you VENKATA 09/01/24 ABN CMP 02/22/25 - h/o CKD stage 3 [facility]10-15-2025 Telephone encounter Note* Telephone Encounter - Magali Kelly - 02/08/2025 11:19 AM EDT Hi, this is to be cool calling for Dr Cruz. I really need to move my appointment up as soon as possible. My phone number [phone]. My date is 124 3. Thank you. Patient would like to move appointment up attempted to return call but was unable to reach patient.Correction, patient returned call,, Pt is willing to travel to [place], She states that BiPap is not working correctly . [employer] is the company she uses for her bi pap, and was told nothing wrong, that pt must be using the mask wrong. She would like to move her appt up. [facility] HospitalBrsobhhwuz50-01-3890 Miscellaneous Notes* Telephone Encounter - Magali Kelly - 02/08/2025 11:19 AM EDT Hi, this is to be cool calling for Dr Cruz. I really need to move my appointment up as soon as possible. My phone number [phone]. My date is 124 3. Thank you. Patient would like to move appointment up attempted to return call but was unable to reach patient.Correction, patient returned call,, Pt is willing to travel to [place], She states that BiPap is not working correctly . [employer] is the company she uses for her bi pap, and was told nothing wrong, that pt must be using the mask wrong. She would like to move her appt up. documented in this encounterSullivan County Memorial HospitalSsjzbpngei09-88-3358 History of Present illness Narrative* Risa Summers MD - 02/06/2025 3:30 PM EDT Images from the original note were not included. [facility] Patient: Monet Recinos Date of : 1960 Age: 64 y.o. Date of Encounter: 02/06/2025 REASON FOR VISIT: Chronic heart failure. Dear Rajni Steiner Jr, DO We [facility] the [facility] Ms. Recinos [...] enlargement, trace AI, trace to mild MR, yzhi-md-uzgoggef TR,RVSP 44 mmHg PFT 07/01/2023: FEV 1 [...] mouth in the morning. 90 tablet 3 fjtxmikxgd-avqjibox-kztutukzxu (BREZTRI AEROSPHERE) 160-9-4.8 mcg/actuation HFA aerosol inhaler [...] 1 tablet before bedtime. 60 tablet 2 cmcwox-bcpjvujau-qpa,al-simeth (FIRST-MOUTHWASH BLM) 19-830-042-40 mg/30mL mouthwash Take 5 mL by mouth [...] failure/COPD, on oxygen; follows with pulmonology at [facility] History of PE Iron-deficiency anemia, underwent [...] ordination of care. 02/06/2025 Risa Summers M.D., [facility], [facility] [address] [place] [address]. [facility] [address] [place] [address] Fax This note was completed using a voice acoustics teacher system. Every effort was made to ensure accuracy. However, inadvertent computerized acoustics teacher errors may be present. * Jazmín Acevedo RN - 02/06/2025 12:00 PM EDT Instructed patient on daily weights, fluid restriction, and low sodium diet. Advised of s/s requiring ER treatment or to call the office. Heart failure education provided: Yes. Patient verbalized understanding. documented in this encounterAshtabula General Hospital10-13-2025 Instructions* Patient Instructions* Risa Summers MD [...] by calling the Heart Failure Clinic at [phone]. Please call 911 for emergencies. documented in this encounterAshtabula General Hospital10-13-2025 Miscellaneous Notes* Telephone Encounter - Tosin Reyes CMA - 02/06/2025 9:45 AM EDT Franci from [facility] pain management called and stated that patient [...] AM EDT Notified Franci documented in this encounterAshtabula General Hospital10-13-2025 Telephone encounter Note* Telephone Encounter - Tosin Reyes CMA - 02/06/2025 9:45 AM EDT Franci from [facility] pain management called and stated that patient voiced concern of that she wanted to restart the gabapentin. Doctor was wondering why it was discontinued? [facility]10-13-2025 Telephone encounter Note* Telephone Encounter - Rajni Steiner DO - 02/06/2025 9:45 AM EDT Message noted. Side effects. We replaced it with pregabalin. I do not know who Franci is, but she should know these things. And if she does not, she should not be asking the questions. [facility]10-13-2025 Telephone encounter Note* Telephone Encounter - Tosin Reyes CMA - 02/06/2025 9:45 AM EDT Notified Franci [facility]10-10-2025 Miscellaneous Notes* Telephone Encounter - Antoinette Sanchez CNA - 02/03/2025 1:55 PM EDT LEFT VOICEMAIL REMINDER ABOUT APPOINTMENT ON THURSDAY 3:30. documented in this encounterAshtabula General Hospital10-10-2025 Telephone encounter Note* Telephone Encounter - Antoinette Sanchez CNA - 02/03/2025 1:55 PM EDT LEFT VOICEMAIL REMINDER ABOUT APPOINTMENT ON THURSDAY 3:30. [facility]10-01-2025 Telephone encounter Note* Telephone Encounter - Fabricio Lange - 01/25/2025 3:36 PM EDT Friend called- Norma has gone without Bi-pap x3 days - she said [employer] needs order for Bi-pap w settingsas well as - Reg O2 concentrator, and personal concentrator To [employer] [facility] If already sent pls disregard - ty [facility] HospitalJizniiyqyk00-91-3330 Miscellaneous Notes* Telephone Encounter - Fabricio Lange - 01/25/2025 3:36 PM EDT Friend called- Norma has gone without Bi-pap x3 days - she said [employer] needs order for Bi-pap w settingsas well as - Reg O2 concentrator, and personal concentrator To [employer] [facility] If already sent pls disregard - ty documented in this encounterSullivan County Memorial HospitalLoxlagujyx87-62-0081 Miscellaneous Notes* Perioperative Nursing Note - Patricia Huertas RN - 01/03/2025 3:50 PM EDT Preoperative Education Checklist- General Surgery date: 01/04/25 Surgery time: 1000 Arrival time: 0900 1. Bring a photo ID and your insurance card with you the day of surgery. You will check in at the main lobby of the [facility]- registration desk is straight ahead as soon as you walk in. Tell them you are here for surgery. 2. If you have a Living Will/Durable Power of Eye Dropper Assembler for Health Care that is not on [...] after you have bathed. 5. NO nail martiniquais/acrylic on at least one finger. If you are having a hand, wrist or foot surgery then all nail martiniquais and artificial/acrylic nails must be removed from [...] please call the Preadmission Testing office at [phone], Mon.-Fri. 7 a.m.-3 p.m. Leave a voicemail [...] Stop taking 0 days prior to procedure rqjzweyhoq-zzdbsnfs-cksumdleoj (BREZTRI AEROSPHERE) 160-9-4.8 mcg/actuation HFA aerosol inhaler [...] days prior to procedure documented in this encounterAshtabula General Hospital09-09-2025 Nurse Note* Perioperative Nursing Note - Patricia Huertas RN - 01/03/2025 3:50 PM EDT Preoperative Education Checklist- General Surgery date: 01/04/25 Surgery time: 1000 Arrival time: 0900 1. Bring a photo ID and your insurance card with you the day of surgery. You will check in at the main lobby of the [facility]- registration desk is straight ahead as soon as you walk in. Tell them you are here for surgery. 2. If you have a Living Will/Durable Power of Eye Dropper Assembler for Health Care that is not on [...] after you have bathed. 5. NO nail martiniquais/acrylic on at least one finger. If you are having a hand, wrist or foot surgery then all nail martiniquais and artificial/acrylic nails must be removed from [...] please call the Preadmission Testing office at [phone], Mon.-Fri. 7 a.m.-3 p.m. Leave a voicemail [...] Stop taking 0 days prior to procedure luqjlxvfwz-cgajnkkj-dmnqpxmbrn (BREZTRI AEROSPHERE) 160-9-4.8 mcg/actuation HFA aerosol inhaler [...] Stop taking 0 days prior to procedure [facility]09-09-2025 Telephone encounter Note* Telephone Encounter - Magali Kelly - 01/03/2025 9:36 AM EDT Pt gets bi-pap machine from [employer] Pt was told that she due for a renewal order for her Bipap, also her condenser Phone number is for [employer] [facility] [phone] Miscellaneous Notes* Telephone Encounter - Magali Kelly - 01/03/2025 9:36 AM EDT Pt gets bi-pap machine from [employer] Pt was told that she due for a renewal order for her Bipap, also her condenser Phone number is for [employer] documented in this encounterSullivan County Memorial HospitalWcelillpwc19-97-8501 Miscellaneous Notes* Perioperative Nursing Note - Patricia Huertas RN - 12/19/2024 2:40 PM EDT Preoperative Education Checklist- General Surgery date: 12/20/24 Surgery time: 1000 Arrival time: 0900 1. Bring a photo ID and your insurance card with you the day of surgery. You will check in at the main lobby of the [facility]- registration desk is straight ahead as soon as you walk in. Tell them you are here for surgery. 2. If you have a Living Will/Durable Power of Eye Dropper Assembler for Health Care that is not on [...] after you have bathed. 5. NO nail martiniquais/acrylic on at least one finger. If you are having a hand, wrist or foot surgery then all nail martiniquais and artificial/acrylic nails must be removed from [...] please call the Preadmission Testing office at [phone], Mon.-Fri. 7 a.m.-3 p.m. Leave a voicemail [...] Stop taking 0 days prior to procedure vwidgdqrtw-mihmbpbf-klzvahpzop (BREZTRI AEROSPHERE) 160-9-4.8 mcg/actuation HFA aerosol inhaler [...] days prior to procedure documented in this encounterAshtabula General Hospital08-25-2025 Nurse Note* Perioperative Nursing Note - Patricia Huertas RN - 12/19/2024 2:40 PM EDT Preoperative Education Checklist- General Surgery date: 12/20/24 Surgery time: 1000 Arrival time: 0900 1. Bring a photo ID and your insurance card with you the day of surgery. You will check in at the main lobby of the [facility]- registration desk is straight ahead as soon as you walk in. Tell them you are here for surgery. 2. If you have a Living Will/Durable Power of Eye Dropper Assembler for Health Care that is not on [...] after you have bathed. 5. NO nail martiniquais/acrylic on at least one finger. If you are having a hand, wrist or foot surgery then all nail martiniquais and artificial/acrylic nails must be removed from [...] please call the Preadmission Testing office at [phone], Mon.-Fri. 7 a.m.-3 p.m. Leave a voicemail [...] Stop taking 0 days prior to procedure wfujnkbgsq-knxikciq-jgtnzxhedm (BREZTRI AEROSPHERE) 160-9-4.8 mcg/actuation HFA aerosol inhaler [...] Stop taking 0 days prior to procedure [facility]08[facility] History of Present illness Narrative* Rajni [...] Exam Vitals reviewed. Exam conducted with a sales order specialist present (Friend/POA). Constitutional: General: She is not [...] EGD; Future Stage 3a chronic kidney disease ([facility]) -patient now back on torsemide 20 [...] -further recommendations following testing documented in this encounterAshtabula General Hospital08-14-2025 Miscellaneous Notes* Telephone Encounter - Liz [...] chronic respiratory failure with hypoxia and hypercapnia ([facility]) Active Problems: Bipolar 2 disorder, major depressive episode ([facility]) Stage 3a chronic kidney disease ([facility]) Pulmonary hypertension ([facility]) Discharge Specialty: Other *Name of Discharging Facility: [facility] Date of Facility Discharge: 12/04/24-12/06/2024 Date of Interactive Contact and Name of Centrifugal Separator: 12/08/24 0956 Unable to reach patient. M [...] AM EDT Message noted. documented in this encounterAshtabula General Hospital08-14-2025 Telephone encounter Note* Telephone Encounter - [...] Discharge Specialty: Other *Name of Discharging Facility: [facility] Date of Facility Discharge: 12/04/24-12/06/2024 Date of Interactive Contact and Name of Centrifugal Separator: 12/08/24 0956 Unable to reach patient. LVM [...] Other Services Utilized/Needed by the Patient: NA [employer]08-14-2025 Telephone encounter Note* Telephone Encounter - Rajni Steiner DO - 12/08/2024 7:48 AM EDT Message noted. [employer]08-06-2025 Miscellaneous Notes* Telephone Encounter - Fareed Norton RN - 11/30/2024 8:25 AM EDT ----- Message from PRAKASH Espinosa sent at 11/30/2024 11:52 AM EDT ----- Have her repeat labs again next week ----- Message ----- From: Kacey Sims RN Sent: 11/30/2024 8:28 AM EDT To: PRAKASH Linares Seen Thursday in [facility], restarted torsemide and you wanted labs in 1 week. She completed thenext day. ----- Message ----- From: Lab, Background User Sent: 11/29/2024 7:25 PM EDT To: [facility] Clinical Staff documented in this encounterAshtabula General Hospital08-06-2025 Telephone encounter Note* Telephone Encounter - Fareed Norton RN - 11/30/2024 8:25 AM EDT ----- Message from PRAKASH Espinosa sent at 11/30/2024 11:52 AM EDT ----- Have her repeat labs again next week ----- Message ----- From: Kacey Sims RN Sent: 11/30/2024 8:28 AM EDT To: PRAKASH iLnares Seen Thursday in [facility], restarted torsemide and you wanted labs in 1 week. She completed thenext day. ----- Message ----- From: Lab, Background User Sent: 11/29/2024 7:25 PM EDT To: [facility] Clinical Staff [facility]08-04-[facility] History of Present illness Narrative* PRAKASH Linares - 11/28/2024 2:00 PM EDT Images from the original note were not included. [facility] HE[facility] FAILURE [facility]IN[facility] Patient: Monet Recinos Date of : 1960 Age: 64 y.o. Date of Encounter: 11/28/2024 REASON FOR VISIT: Chronic heart failure. Dear Rajni Steiner Jr, DO & Rajni Steiner DO We had the pleasure of seeing your patient, Monet Recinos, in the [facility] Failure [facility] on 11/28/2024. Ms. [...] mouth in the morning. 90 tablet 3 tdklgluuna-wenbmgil-hbbfediegb (BREZTRI AEROSPHERE) 160-9-4.8 mcg/actuation HFA aerosol inhaler [...] 42 mm per mercury 11/15 TTE 3. [place] coronary ASCVD status post CABG x4 08/15 [...] heart rates therefore will start her on Swqett74 mg at nighttime Get blood work in [...] Odessa Cook CNP Advanced [facility] Services [facility] This note was completed using a voice acoustics teacher system. Every effort was made to ensure accuracy. However, inadvertent computerized acoustics teacher errors may be present. PRAKASH Linares 11/28/24 1444 * Jazmín Acevedo RN - 11/28/2024 2:00 PM EDT Instructed patient on daily weights, fluid restriction, and low sodium diet. Advised of s/s requiring ER treatment or to call the office. Heart failure education provided: No. Patient verbalized understanding. Pt scheduled for echo while in office. Instructions reviewed with pt. documented in this encounterAshtabula General Hospital08-04-2025 Instructions* Patient Instructions* PRAKASH Linares - [...] by calling the Heart Failure Clinic at [phone]. Please call 911 for emergencies. documented in this encounterAshtabula General Hospital07-14-2025 History of Present illness Narrative* Rajni [...] Exam Vitals reviewed. Exam conducted with a sales order specialist present (Friend/POA). Constitutional: General: She is not [...] in the morning., Disp: 90tablet, Rfl: 3 tiwdietcpo-skqxuijx-xoziedeuvq (BREZTRI AEROSPHERE) 160-9-4.8 mcg/actuation HFA aerosol inhaler, [...] Testing No results found. Rajni Steiner DO., [facility] Physicians Office: [phone] documented in this encounterAshtabula General Hospital07-14-2025 Evaluation note* Diagnosis Hiatal hernia with GERD- Primary Stage 3a chronic kidney disease ([facility]) Patellar tendinitis of right knee Gastro-esophageal reflux disease without esophagitis Venous insufficiency of both lower extremities documented in this encounter [facility]07-09-2025 NoteFL UGI WITH ESOPHAGUS HISTORY: Nausea [...] by Kai Finn MD on 11/02/2024 10:14 [facility] 10-27-2024 History of Present illness Narrative* Rajni Steiner DO - 10/27/2024 4:15 PM EDT IM PROGRESS NOTE Patient - Monet Recinos Age - 64 y.o. - 1960 ASSESSMENT & PLAN 1. Type 2 diabetes mellitus with stage 3a chronic kidney disease, without long- term current use of insulin ([facility]) (Primary) - last A1c 6.5% -goals of [...] Chronic heart failure with preserved ejection fraction ([facility]) - GDMT: Aldactone, Jardiance, furosemide - will continue to wean off of propanolol over the next 2 weeks - at that time we can decide on replacement beta-georgi - propranoloL (INDERAL) 40 mg tablet; Take 1 tablet (40 mg total) by mouth in the morning. 4. Stage 3a chronic kidney disease ([facility]) - GFR ranges 45-54 over the past [...] daily. Unless she takes a dose of Alice-Ada along with the pantoprazole, she will get [...] Exam Vitals reviewed. Exam conducted with a sales order specialist present (Friend/POA). Constitutional: General: She is not [...] in the morning., Disp: 90tablet, Rfl: 3 tudncdsbfr-cohqqgme-xyztjnaolh (BREZTRI AEROSPHERE) 160-9-4.8 mcg/actuation HFA aerosol inhaler, [...] Testing No results found. Rajni Steiner DO., [facility] Physicians Office: [phone] documented in this encounterAshtabula General Hospital07-03-2025 Evaluation note* Diagnosis Type 2 diabetes mellitus with stage 3a chronic kidney disease, without long-term current use of insulin ([facility])- Primary Venous insufficiency of both lower extremities Chronic heart failure with preserved ejection fraction ([facility]) Stage 3a chronic kidney disease ([facility]) Nausea and vomiting, unspecified vomiting type Arthritis of left sacroiliac joint Cervicogenic headache Headache documented in this encounter [facility]06-13-2025 History of Present illness Narrative* Rajni Cardoso Obdulia, DO - 10/07/2024 11:30 AM EDT IM PROGRESS NOTE Patient - Monet Recinos Age - 64 [facility] 1960 [id number] ASSESSMENT & PLAN 1. Cervicogenic headache (Primary) [...] Chronic heart failure with preserved ejection fraction ([facility]) -GDMT: Jardiance, propanolol, spironolactone -may need further [...] Exam Vitals reviewed. Exam conducted with a sales order specialist present (Friend/POA). Constitutional: General: She is not [...] in the morning., Disp: 90tablet, Rfl: 3 gzbonwgqla-apphqtgg-mmnxmjqthb (BREZTRI AEROSPHERE) 160-9-4.8 mcg/actuation HFA aerosol inhaler, [...] Testing No results found. Rajni Steiner DO., [facility] Physicians Office: [phone] documented in this encounterBrattleboro Memorial HospitalCollegeFanz [id number] History of Present illness Narrative* Sydnie Guerrero [...] needed for wheezing, Disp:18 g, Rfl: 5 Pkdechu-Hxeeyixqzdu-Gqldkgknnm (Breztri Aerosphere) 160-9-4.8 MCG/ACT aerosol, Inhale 2 [...] disorder Breast injury CAD (coronary artery disease) ([facility]) Cervical disc disorder Chronic kidney disease Cigarette nicotine dependence in remission 10/16/2020 Congestive heart failure (CHF) ([facility]) COPD (chronic obstructive pulmonary disease) ([facility]) COVID-19 04/29/2023 Dementia ([facility]) Dependence on other enabling machines and devices 04/29/2023 Depression ([facility]) Difficulty in walking, not elsewhere classified 04/28/2023 Former smoker 09/26/2022 GERD (gastroesophageal reflux disease) Hyperlipidemia ([facility]) 04/29/2023 Liver disease Lumbosacral disc disease Memory loss Myocardial infarction ([facility]) Nicotine dependence 04/29/2023 Obesity with body mass index 30 or greater 05/14/2023 BONY (obstructive sleep apnea) Osteoarthritis Panic disorder ([facility]) Personal history of nicotine dependence 04/29/2023 Pneumonia, unspecified organism 04/29/2023 Polyneuropathy, unspecified 04/29/2023 Presence of aortocoronary bypass graft 04/29/2023 Psoriasis Psoriasis, unspecified 05/02/2023 PTSD (post-traumatic stress disorder) ([facility]) Shortness of breath Solitary pulmonary nodule 04/29/2023 Stage 3a chronic kidney disease (HCC) ([facility]) 07/07/2024 Thoracic disc disease Unspecified dementia, mild, without behavioral disturbance, psychotic disturbance, mood disturbance, and anxiety ([facility]) 04/30/2023 Ventricular tachycardia ([facility]) 09/20/2024 Documented on 08/23/2020 Visual impairment Weakness [...] Chronic obstructive pulmonary disease, unspecified COPD type ([facility]) - albuterol HFA 90 mcg/act inhaler; Inhale 2 puffs every 4 (four) hours if needed for wheezing - Jfiuvru-Kllagbilixs-Fhkobuyaew (Breztri Aerosphere) 160-9-4.8 MCG/ACT aerosol; Inhale 2 puffs in the morning and 2 puffs before bedtime. Chronic respiratory failure with hypoxia and hypercapnia ([facility]) BONY (obstructive sleep apnea) COPD [...] COPD. Sydnie Guerrero DO documented in this encounterSullivan County Memorial [id number] History of Present illness Narrative* Myriam Peacock MD - 09/01/2024 11:15 AM EDT Monetnakia Recinos Date of visit: 09/01/2024 Date of : 1960 Age: 64 y.o. 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 Hyperglycemia Cigarette nicotine dependence in remission Depression Liver disease Visual impairment BONY treated with BiPAP Chronic heart failure with preserved ejection fraction ([facility]) Essential hypertension Hx of hyperlipidemia Former smoker Agoraphobia Anxiety Chipped tooth GERD (gastroesophageal reflux disease) Low back pain Osteoarthritis PTSD (post-traumatic stress disorder) Bipolar 2 disorder, major depressive episode ([facility]) Cannabis use disorder, mild, abuse Major depressive disorder Panic disorder Weakness BMI 40.0-44.9, adult ([facility]) Chronic respiratory failure with hypoxia and hypercapnia ([facility]) Closed wedge compression fracture of T6 vertebra with routine healing Arthritis of left sacroiliac joint Chronic obstructive pulmonary disease, unspecified COPD type ([facility]) Stage 3a chronic kidney disease ([facility]) Allergies Allergen Reactions Penicillins Anaphylaxis Other Reaction(s): [...] mouth in the morning. 90 tablet 3 zdcauqojct-tajfhsta-cdppiauwvg (BREZTRI AEROSPHERE) 160-9-4.8 mcg/actuation HFA aerosol inhaler [...] longer uses a BIPAP 01/28/23 Bipolar disorder ([facility]) Breast injury CHF (congestive heart failure) ([facility]) Chipped tooth Chronic kidney disease COPD (chronic obstructive pulmonary disease) ([facility]) Coronary artery disease Dementia ([facility]) Depression Diarrhea frequent bouts /involuntary Dizziness Fracture, vertebral, lumbar closed ([facility]) GERD (gastroesophageal reflux disease) Headache History of coronary artery bypass graft 08/14/2020 Liver disease Low back pain Lump or mass in breast Memory loss Myocardial infarction ([facility]) Apr 2009, swith stent placement Obesity BONY treated with BiPAP 07/31/2022 Osteoarthritis Panic disorder Psoriasis PTSD (post-traumatic stress disorder) Pulmonary emboli ([facility]) Rib fracture 09/2023 lt Rotator cuff tear L Shortness of breath Sleep apnea Visual impairment glasses No data recorded No data recorded No data recorded Past Surgical History: Procedure Laterality Date BREAST BIOPSY BREAST CYST EXCISION Cardiac catheterization N/A 01/09/2020 Performed by Yefri Khan MD at [facility] Cardiac catheterization-LV Cors N/A 08/06/2020 Performed by Hazel Painting MD at [facility] SECTION CHOLECYSTECTOMY COLONOSCOPY N/A 04/03/2017 Performed by Jose Beaver MD at [facility] Coronary angiogram and left ventricular gram/pressure N/A 01/09/2020 Performed by Yefri Khan MD at [facility] CORONARY ANGIOPLASTY WITH STENT PLACEMENT CORONARY ARTERY BYPASS GRAFT X4/ THOMPSON/ SVG X3 / RIGHT UPPER LEG OPEN VEIN HARVEST/ LEFT UPPER LEG OPEN VEING HARVEST /GINETTE N/A 08/13/2020 Performed by Leroy Meng MD at [facility] Drug eluting stent left anterior descending N/A 01/09/2020 Performed by Yefri Khan MD at [facility] EXCISION SEROMA LOWER EXTREMITY Left 10/07/2022 Performed by Victor Hugo Vincent DO at [facility] Intravascular ultrasound coronary N/A 08/06/2020 Performed by Hazel Painting MD at [facility] Intravascular ultrasound coronary N/A 01/09/2020 Performed by Yefri Khan MD at [facility] NOTCHARGED/Thrombolysis arterial initial treatment N/A 01/09/2020 Performed by Yefri Khan MD at [facility] TONSILLECTOMY Family History [...] min Stress: No Stress Concern Present (07/25/2023) [employer] - Occupational Stress Questionnaire Feeling of Stress : Only a little Recent Concern: Stress - Stress Concern Present (07/25/2023) [employer] - Occupational Stress Questionnaire Feeling of Stress : Very much Social Connections: Moderately Isolated (07/25/2023) Social Connection and Isolation Panel [NHANES] Frequency of Communication with Friends and Family: Three times a week Frequency of Social Gatherings with Friends and Family: Three times a week Attends Worship Services: More than 4 times per year [...] Referring Physician: Rajni Steiner DO [address] [place] [address] documented in this encounterAshtabula [facility]03-21-2025 Miscellaneous Notes* Telephone Encounter - Ching Gay RN - 07/15/2024 8:20 AM EDT Last OV 02/19/24 Last CMP 07/07/24.slm documented in this [facility]03-21-2025 Telephone encounter Note* Telephone Encounter - Ching Gay RN - 07/15/2024 8:20 AM EDT Last OV 02/19/24 Last CMP 07/07/24.slm [email or web address] [id number] History of Present illness Narrative* Rajni Steiner, [...] Chronic obstructive pulmonary disease, unspecified COPD type ([facility]) -COPD GOLD class B -overall stable -continue Breztri 2 puffs b.i.d. with p.r.n. albuterol 3. Stage 3a chronic kidney disease ([facility]) -GFR ranges 44-49 over the past 6 months -renal protective strategies were reviewed with the patient -continue to avoid NSAIDs, gabapentin -repeat electrolytes, kidney function and GFR to assess for improvement or worsening - CBC auto differential; Future - Comprehensive metabolic panel; Future 4. Chronic respiratory failure with hypoxia and hypercapnia ([facility]) -GOLD class B -patient with stationary and portable oxygen at home -I encouraged her to wear the portable oxygen as much as possible. -most desaturations, when she is active, and this is when she needs it the most. 5. Chronic heart failure with preserved ejection fraction ([facility]) -improved -no longer requiring loop diuretic -GDMT includes Jardiance, spironolactone, propanolol [place] 6. Bipolar 2 disorder, major depressive episode ([facility]) -sees Psychiatry on a routine basis -current regimen includes venlafaxine, Lamictal, doxepin, clonazepam, aripiprazole 7. BMI 40.0-44.9, adult ([facility]) -ongoing problem which has worsened due to missing some of her medications -given her overall CV risk, may benefit from initiation of GLP 1 treatment 8. 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 Exam conducted with a sales order specialist present (Friend/POA). Constitutional: General: She is not [...] in the morning., Disp: 90tablet, Rfl: 3 ztzuynpnek-lhtwhkva-pllyueawcn (BREZTRI AEROSPHERE) 160-9-4.8 mcg/actuation HFA aerosol inhaler, [...] Testing No results found. Rajni Steiner DO., [facility] Physicians Office: [phone] documented in this encounterAshtabula [facility]12-03-2024 History of Present illness Narrative* Rajni Steiner DO - 03/29/2024 3:15 PM EST IM PROGRESS NOTE Patient - Monet Recinos Age - 63 y.[facility]. [facility] 1960 [id number] ASSESSMENT & PLAN Video Visit via Real-time Synchronous Audiovisual Provider Location: [facility] INTER[facility]IC[facility] - FAMILY MEDICINE [address] [facility] [id number] Patient Location: Patient's home Video Visit Consent [...] that there are some limitations compared to deqf-nj-kozt evaluations. The patient consented to the presence [...] visit. Physical Exam Exam conducted with a sales order specialist present (Friend/POA). Constitutional: General: She is not [...] THE MORNING, Disp: 90 tablet, Rfl: 3 cgzmtsweci-owelldem-vssdxaezga (BREZTRI AEROSPHERE) 160-9-4.8 mcg/actuation HFA aerosol inhaler, [...] Testing No results found. Rajni Steiner DO., [facility] Physicians Office: [phone] documented in this encounterAshtabula [facility] Hospital12-03-2024 Miscellaneous Notes* Telephone Encounter - Monica [...] a video visit today documented in this encounterAshtabula [facility] Hospital12-03-2024 Telephone encounter Note* Telephone Encounter - Monica Johnston CMA - 03/29/2024 9:13 AM EST Pts friend called stated pt is having bursing on her legs for no reason , they would like to know if something to be concerned about or maybe a side effect from the pregabalin ? [facility] [id number] Telephone encounter Note* Telephone Encounter - Rajni Steiner DO - 03/29/2024 9:13 AM EST Message noted. What is happening to her legs? [facility]12-03-[facility] Telephone encounter Note* Telephone Encounter - Monica Johnston CMA - 03/29/2024 9:13 AM EST They are brusing , she's not hirting or bumping anything they are just popping up [facility]12-03-2024 Telephone encounter Note* Telephone Encounter - Rajni Steiner DO - 03/29/2024 9:13 AM EST Message noted. This is not a side effect from pregabalin. Is she taking aspirin for any reason? [facility]12-03-20[facility] Telephone encounter Note* Telephone Encounter - Monica Johnston CMA - 03/29/2024 9:13 AM EST She's not taking any aspirin lately bc she's out . She did take some excedrin today . They started about a week ago. [facility]12-03-2024 Telephone encounter Note* Telephone Encounter - Monica Johnston CMA - 03/29/2024 9:13 AM EST She is worried they are blood clots , they just want to know if its something to worry about ? Friend also just stated that she is starting to swelling up again [facility]12-03-2024 Telephone encounter Note* Telephone Encounter - Rajni Steiner DO - 03/29/2024 9:13 AM EST Message noted. Hard to say without seeing it. We can put her in a slot tomorrow, or try a video visit today [facility]11-21-2024 History of Present illness Narrative* Sydnie [...] for her, however she states that the [employer] would not accept his testing. She is [...] tablet Take 80 mg by mouth Daily Mklfvkz-Rqsjozoxfqw-Wzicgraczj (Breztri Aerosphere) 160-9-4.8 MCG/ACT aerosol Inhale calcitonin, [...] visit. Past Medical History: Diagnosis Date Agoraphobia ([facility]) Angina at rest ([facility]) Anxiety BiPAP (biphasic positive airway pressure) dependence Bipolar disorder ([facility]) Breast injury CAD (coronary artery disease) ([facility]) Cervical disc disorder Chronic kidney disease Cigarette nicotine dependence in remission 10/16/2020 Congestive heart failure (CHF) ([facility]) COPD (chronic obstructive pulmonary disease) ([facility]) COVID-19 04/29/2023 Dementia ([facility]) Dependence on other enabling machines and devices 04/29/2023 Depression ([facility]) Difficulty in walking, not elsewhere classified 04/28/2023 Former smoker 09/26/2022 GERD (gastroesophageal reflux disease) Liver disease Lumbosacral disc disease Memory loss Myocardial infarction ([facility]) BONY (obstructive sleep apnea) Osteoarthritis Panic disorder ([facility]) Personal history of nicotine dependence 04/29/2023 Pneumonia, unspecified organism 04/29/2023 Polyneuropathy, unspecified 04/29/2023 Presence of aortocoronary bypass graft 04/29/2023 Psoriasis ([facility]) Psoriasis, unspecified ([facility]) 05/02/2023 PTSD (post-traumatic stress disorder) ([facility]) Shortness of breath Solitary pulmonary nodule 04/29/2023 Thoracic disc disease Unspecified dementia, mild, without behavioral disturbance, psychotic disturbance, mood disturbance, and anxiety ([facility]) 04/30/2023 Visual impairment Weakness 05/28/2023 [...] send a script for a POC to [email or web address] today. Tobacco use -- she does continue to smoke on a daily basis. She is currently at a half pack or less. We did have a 4 minute discussion regarding the importance of smoking cessation at today's office visit. Follow up in about 3 months (around 06/17/2024) for COPD, in [place] office. Sydnie Guerrero DO documented in this encounterSullivan County Memorial [id number] History of Present illness Narrative* Rajni Steiner [...] 0 3. Stage 3a chronic kidney disease ([facility]) -GFR ranges from 36 to 53 over the past year. -renal protective strategies were reviewed with patient, in particular avoidance of NSAIDs and Welch 2 inhibitors -we are evaluating and reducing or eliminating all prescription medications which could affect the kidney -continue to monitor. ACR ordered today - CBC auto differential; Future 4. Chronic heart failure with preserved ejection fraction ([facility]) -GDMT: Jardiance 10 mg daily, propanolol 80 mg daily, spironolactone 25 mg daily, torsemide. -continue home oxygen 5. 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 Exam conducted with a sales order specialist present (Friend/POA). Constitutional: General: She is not [...] THE MORNING, Disp: 90 tablet, Rfl: 3 qqjznifhbh-dademizl-hxekpsfbjy (BREZTRI AEROSPHERE) 160-9-4.8 mcg/actuation HFA aerosol inhaler, [...] on 12/17/2023 11:39 AM Rajni Steiner DO., [facility] Physicians Office: [phone] documented in this [facility]10-28-2024 Miscellaneous Notes* Telephone Encounter - [...] EDT Message noted. Yes documented in this [facility]10-28-2024 Telephone encounter Note* Telephone Encounter - Monica Johnston CMA - 02/22/2024 12:27 PM EDT Pts' friend norma called was wondering what you were going to do with the pregabalin there were no refills , pt stated the gabapentin worked better but needed to know if you were going to refill the pregabalin or in crease the dosage ? [facility]10-28-2024 Telephone encounter Note* Telephone Encounter - Rajni Steiner DO - 02/22/2024 12:27 PM EDT Message noted. Needs a recheck appointment to discuss [facility]10-28-2024 Telephone encounter Note* Telephone Encounter - Cathleen Arreola - 02/22/2024 12:27 PM EDT Comes in 03/07 is that okay? [facility]10-28-2024 Telephone encounter Note* Telephone Encounter - Rajni Steiner DO - 02/22/2024 12:27 PM EDT Message noted. Yes [facility]10-25-2024 History of Present illness Narrative* Saqib Giles MD - 02/19/2024 10:45 AM EDT Monet Recinos Date of visit: 02/19/2024 Date of : 1960 Age: 63 y.o. 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 ([facility]) Hyperglycemia Cigarette nicotine dependence in remission Depression Liver disease Visual impairment BONY treated with BiPAP Chronic heart failure with preserved ejection fraction ([facility]) Essential hypertension Hx of hyperlipidemia Former smoker Agoraphobia Anxiety Chipped tooth GERD (gastroesophageal reflux disease) Low back pain Osteoarthritis PTSD (post-traumatic stress disorder) Bipolar 2 disorder, major depressive episode ([facility]) Cannabis use disorder, mild, abuse Major depressive disorder Panic disorder Weakness BMI 40.0-44.9, adult ([facility]) Chronic respiratory failure with hypoxia and hypercapnia ([facility]) Acute pulmonary embolism without acute cor pulmonale, unspecified pulmonary embolism type ([facility]) Closed wedge compression fracture of T6 vertebra [...] MOUTH IN THE MORNING 90 tablet 3 blirafysgu-aqzcrijn-tpweaeborr (BREZTRI AEROSPHERE) 160-9-4.8 mcg/actuation HFA aerosol inhaler [...] History: Diagnosis Date Agoraphobia Angina at rest ([facility]) Anxiety BiPAP (biphasic positive airway pressure) dependence Patient states she no longer uses a BIPAP 01/28/23 Bipolar disorder ([facility]) Breast injury CHF (congestive heart failure) ([facility]) Chipped tooth Chronic kidney disease COPD (chronic obstructive pulmonary disease) ([facility]) Coronary artery disease Dementia ([facility]) Depression Diarrhea frequent bouts /involuntary Dizziness Fracture, vertebral, lumbar closed ([facility]) GERD (gastroesophageal reflux disease) Headache History of coronary artery bypass graft 08/14/2020 Liver disease Low back pain Lump or mass in breast Memory loss Myocardial infarction ([facility]) Apr 2009, swith stent placement Obesity BONY treated with BiPAP 07/31/2022 Osteoarthritis Panic disorder Psoriasis PTSD (post-traumatic stress disorder) Pulmonary emboli ([facility]) Rib fracture 09/2023 lt Rotator cuff tear L Shortness of breath Sleep apnea Visual impairment glasses No data recorded No data recorded No data recorded Past Surgical History: Procedure Laterality Date BREAST BIOPSY BREAST CYST EXCISION Cardiac catheterization N/A 01/09/2020 Performed by Yefri Khan MD at [facility] Cardiac catheterization-LV Cors N/A 08/06/2020 Performed by Hazel Painting MD at [facility] SECTION CHOLECYSTECTOMY COLONOSCOPY N/A 04/03/2017 Performed by Jose Beaver MD at [facility] Coronary angiogram and left ventricular gram/pressure N/A 01/09/2020 Performed by Yefri Khan MD at [facility] CORONARY ANGIOPLASTY WITH STENT PLACEMENT CORONARY ARTERY BYPASS GRAFT X4/ THOMPSON/ SVG X3 / RIGHT UPPER LEG OPEN VEIN HARVEST/ LEFT UPPER LEG OPEN VEING HARVEST /GINETTE N/A 08/13/2020 Performed by Leroy Meng MD at [facility] Drug eluting stent left anterior descending N/A 01/09/2020 Performed by Yefri Khan MD at [facility] EXCISION SEROMA LOWER EXTREMITY Left 10/07/2022 Performed by Victor Hugo Vincent DO at [facility] Intravascular ultrasound coronary N/A 08/06/2020 Performed by Hazel Painting MD at [facility] Intravascular ultrasound coronary N/A 01/09/2020 Performed by Yefri Khan MD at [facility] NOTCHARGED/Thrombolysis arterial initial treatment N/A 01/09/2020 Performed by Yefri Khan MD at [facility] TONSILLECTOMY Family History [...] min Stress: No Stress Concern Present (07/25/2023) [employer] - Occupational Stress Questionnaire Feeling of Stress : Only a little Recent Concern: Stress - Stress Concern Present (07/25/2023) [employer] [place] [employer] - Occupational Stress Questionnaire Feeling of Stress : Very much Social Connections: Moderately Isolated (07/25/2023) Social Connection and Isolation Panel [NHANES] Frequency of Communication with Friends and Family: Three times a week Frequency of Social Gatherings with Friends and Family: Three times a week Attends Worship Services: More than 4 times per year [...] UP No follow-ups on file. PCP: Rajni Steienr Jr, DO Referring Physician: Rajni Steiner DO [address] [place] [address] documented in this encounterAshtabula General Hospital10-24-2024 Miscellaneous Notes* Telephone Encounter - Vicki Bailey CMA - 02/18/2024 9:30 AM EDT Called patient to remind them to bring their most current copy of their medication list with them to their appt. Patient verbalizes understanding. documented in this encounterAshtabula General Hospital10-24-2024 Telephone encounter Note* Telephone Encounter - Vicki Bailey CMA - 02/18/2024 9:30 AM EDT Called patient to remind them to bring their most current copy of their medication list with them to their appt. Patient verbalizes understanding. [facility] [id number] History of Present illness Narrative* Eusebia Huertas, [...] nerve blocks in the past. Last saw [facility] pain clinic 09/2022, PT and aquatic therapy ordered , also RX for zanaflex. Prior treatment: pain clinic [facility] 09/2022, [facility] ER 08/27, MRI T-spine 09/10/23, calcitonin NS, norco, Lumbar MRI [facility] 11/27/22, LT ST Trigger point injx 12/29/23, [...] tablet Take 80 mg by mouth Daily Ylfirgp-Cllfejxjcoo-Rjmptmnhqn (Breztri Aerosphere) 160-9-4.8 MCG/ACT aerosol Inhale calcitonin, [...] HISTORY: Past Medical History: Diagnosis Date Agoraphobia ([facility]) Angina at rest ([facility]) Anxiety BiPAP (biphasic positive airway pressure) dependence Bipolar disorder ([facility]) Breast injury CAD (coronary artery disease) ([facility]) Cervical disc disorder Chronic kidney disease Congestive heart failure (CHF) ([facility]) COPD (chronic obstructive pulmonary disease) ([facility]) Dementia ([facility]) Depression ([facility]) GERD (gastroesophageal reflux disease) Liver disease Lumbosacral disc disease Memory loss Myocardial infarction ([facility]) BONY (obstructive sleep apnea) Osteoarthritis Panic disorder ([facility]) Psoriasis ([facility]) PTSD (post-traumatic stress disorder) ([facility]) Shortness of breath Thoracic disc [...] Dr. Huertas/guido Huertas D.O. documented in this encounterSullivan County Memorial [id number] Miscellaneous Notes* Telephone Encounter - Fior Scott CMA - 02/03/2024 3:42 PM EDT Requesting a referral to a new transportation program director and said she would explain when we c all back. I called back and got no answer and mailbox is full. * Telephone Encounter - Monica Johnston CMA - 02/03/2024 3:42 PM EDT Pt called back stated she really needs a referral for a new transportation program director * Telephone Encounter - Rajni Steiner DO - 02/03/2024 3:42 PM EDT Message noted. Please try again. We need to know which transportation program director is on her insurance plan in order to make a referral. * Telephone Encounter - Cathleen Arreola - 02/03/2024 3:42 PM EDT LM on VM * Telephone Encounter - Sofya Coe CMA - 02/03/2024 3:42 PM EDT Patient's family called back and they need a referral to Dr. Guerrero [id number] [place], [place] * Telephone Encounter - Rajni Steiner DO - 02/03/2024 3:42 PM EDT Message noted. The referral was sent today. She can call and schedule at any time. * Telephone Encounter - Cathleen Arreola - 02/03/2024 3:42 PM EDT Referral sent documented in this encounterAshtabula [facility] Hospital10-09-2024 Telephone encounter Note* Telephone Encounter - Fior Scott CMA - 02/03/2024 3:42 PM EDT Requesting a referral to a new transportation program director and said she would explain when we c all back. I called back and got no answer and mailbox is full. [facility]10-09-2024 Telephone encounter Note* Telephone Encounter - Monica Johnston CMA - 02/03/2024 3:42 PM EDT Pt called back stated she really needs a referral for a new transportation program director [facility]10-09-2024 Telephone encounter Note* Telephone Encounter - Rajni Steiner DO - 02/03/2024 3:42 PM EDT Message noted. Please try again. We need to know which transportation program director is on her insurance plan in order to make a referral. [facility]10-09-2024 Telephone encounter Note* Telephone Encounter - Cathleen Arreola - 02/03/2024 3:42 PM EDT LM on VM [facility]10-09-2024 Telephone encounter Note* Telephone Encounter - Sofya Coe CMA - 02/03/2024 3:42 PM EDT Patient's family called back and they need a referral to Dr. Guerrero [id number] [place], [place] [facility]10-09-2024 Telephone encounter Note* Telephone Encounter - Rajni Steiner DO - 02/03/2024 3:42 PM EDT Message noted. The referral was sent today. She can call and schedule at any time. [facility]10-09-2024 Telephone encounter Note* Telephone Encounter - Cathleen Arreola - 02/03/2024 3:42 PM EDT Referral sent [facility]10-07-2024 Miscellaneous Notes* Telephone Encounter - Vandana Resendiz - 02/01/2024 9:49 AM EDT Patient called and said that she needs office to send POC to [facility] for her oxygen therapy. Area Forester let patient know that SE is not the one who wrote the order for the Oxygen therapy and that it was her primary care provider. Patient stated [facility] stated that she had to have her [...] Umair Astrid - 02/01/2024 9:49 AM EDT Area Forester called patient in regards earlier call and left voicemail to return call to office for information about her oxygen therapy order. Office phone number provided. documented in this encounterOhioHealth Nelsonville Health [email or web address] [id number] Telephone encounter Note* Telephone Encounter - Vandana Magana Astrid - 02/01/2024 9:49 AM EDT Patient called and said that she needs office to send POC to [facility] for her oxygen therapy. Area Forester let patient know that SE is not the one who wrote the order for the Oxygen therapy and that it was her primary care provider. Patient stated [facility] stated that she had to have her oxygen therapy orders through pulmonary provider. Please Advise [facility]10-07-2024 Telephone encounter Note* Telephone Encounter - Shari Garcia RN - 02/01/2024 9:[address] Steiner, PCP office ordered oxygen for nocturnal only. DME will not provide POC for patient with order for nocturnal oxygen only. Second, PCP office can sign oxygen therapy orders as they were the ones that ordered it. Any physician. Not just pulmonary. Please call patient and update. [facility]10-07-2024 Telephone encounter Note* Telephone Encounter - Vandana Resendiz - 02/01/2024 9:49 AM EDT Area Forester called patient in regards earlier call and left voicemail to return call to office for information about her oxygen therapy order. Office phone number provided. [email or web address] [id number] History of Present illness Narrative* Eusebia Obregon [...] tablet Take 80 mg by mouth Daily Njfyvbg-Kztwgfdtukr-Gdscekbgcl (Breztri Aerosphere) 160-9-4.8 MCG/ACT aerosol Inhale calcitonin, [...] (CMS/HCC) Psoriasis (CMS/HCC) PTSD (post-traumatic stress disorder) ([facility]) Shortness of breath Thoracic disc [...] Dr. Huertas/guido Huertas D.O. documented in this encounterSullivan County Memorial [id number] Miscellaneous Notes* Telephone Encounter - Yadira Barrera RN - 01/20/2024 11:13 AM EDT Previous refill was set to no print New rx pended to pool for signature. Last ov 03/31/2023 Upcoming ov on 02/19/2024 Labs 12/17/2023 documented in this encounterAshtabula General Hospital09-25-2024 Telephone encounter Note* Telephone Encounter - Yadira Barrera RN - 01/20/2024 11:13 AM EDT Previous refill was set to no print New rx pended to pool for signature. Last ov 03/31/2023 Upcoming ov on 02/19/2024 Labs 12/17/2023 [facility]09-24-2024 Miscellaneous Notes* Telephone Encounter - Anabela Cueva CMA - 01/19/2024 9:09 AM EDT LM to call back and RS appt from today documented in this encounterAshtabula General Hospital09-24-2024 Telephone encounter Note* Telephone Encounter - Anabela Cueva CMA - 01/19/2024 9:09 AM EDT LM to call back and RS appt from today [facility]09-24-2024 Miscellaneous Notes* Telephone Encounter - Anabela Cueva CMA - 01/19/2024 8:40 AM EDT Message is left for patient to call back and reschedule her appt for today. documented in this [facility]09-24-2024 Telephone encounter Note* Telephone Encounter - Anabela Cueva CMA - 01/19/2024 8:40 AM EDT Message is left for patient to call back and reschedule her appt for today. [facility]09-23-2024 Miscellaneous Notes* Telephone Encounter - Vicki Bailey CMA - 01/18/2024 10:32 AM EDT Called patient to remind them to bring their most current copy of their medication list with them to their appt. Patient verbalizes understanding. documented in this encounterAshtabula General Hospital09-23-2024 Telephone encounter Note* Telephone Encounter - Vicki Bailey CMA - 01/18/2024 10:32 AM EDT Called patient to remind them to bring their most current copy of their medication list with them to their appt. Patient verbalizes understanding. [facility]09-23-2024 Miscellaneous Notes* Telephone Encounter - Caitie Cabello RN - 01/18/2024 9:06 AM EDT 03/31/23 ov with upcoming appt 01/19/24 01/04/24 BMP PC from pt needing refill documented in this encounterAshtabula General Hospital09-23-2024 Telephone encounter Note* Telephone Encounter - Caitie Cabello RN - 01/18/2024 9:06 AM EDT 03/31/23 ov with upcoming appt 01/19/24 01/04/24 BMP PC from pt needing refill [facility]09-17-2024 History of Present illness Narrative* Eusebia [...] nerve blocks in the past. Last saw [facility] pain[facility] 09/2022, PT and aquatic therapy ordered , also RX for zanaflex. Prior treatment: pain clinic [facility] 09/2022, [facility] ER 08/27, MRI T-spine 09/10/23, calcitonin NS, norco, Lumbar MRI [facility] 11/27/22, LT ST Trigger point injx 12/29/23 [...] tablet Take 80 mg by mouth Daily Cvflbqi-Jkjfgroluhx-Ufrydtlcgw (Breztri Aerosphere) 160-9-4.8 MCG/ACT aerosol Inhale calcitonin, [...] HISTORY: Past Medical History: Diagnosis Date Agoraphobia ([facility]) Angina at rest ([facility]) Anxiety BiPAP (biphasic positive airway pressure) dependence Bipolar disorder ([facility]) Breast injury CAD (coronary artery disease) ([facility]) Chronic kidney disease Congestive heart failure (CHF) (CMS/HCC) COPD (chronic obstructive pulmonary disease) ([facility]) Dementia ([facility]) Depression ([facility]) GERD (gastroesophageal reflux disease) Liver disease Memory loss Myocardial infarction ([facility]) BONY (obstructive sleep apnea) Osteoarthritis Panic disorder ([facility]) Psoriasis ([facility]) PTSD (post-traumatic stress disorder) ([facility]) Shortness of breath Visual impairment [...] Dr. Huertas/guido Huertas D.O. documented in this encounterSullivan County Memorial [id number] Miscellaneous Notes* Telephone Encounter - Sofya Coe CMA - 01/07/2024 8:21 AM EDT From Rajni Steiner DO To [employer] Sent and Delivered 01/04/2024 9:12 PM Your kidney and potassium levels are stable from previous No changes today Left this message on her confidential voice mail documented in this encounterOhioHealth Nelsonville Health CenterMarketArt09-12-2024 Telephone encounter Note* Telephone Encounter - Sofya Coe CMA - 01/07/2024 8:21 AM EDT From Rajni Steiner DO To Jorje, Monet Dhillon Sent and Delivered 01/04/2024 9:12 PM Your kidney and potassium levels are stable from previous No changes today Left this message on her confidential voice mail [facility] [id number] History of Present illness Narrative* Rajni Steiner [...] Exam Vitals reviewed. Exam conducted with a sales order specialist present (Friend/POA). Constitutional: General: She is not [...] THE MORNING, Disp: 90 tablet, Rfl: 3 svabdjgupe-bbycgzwl-ecnyvuvwpc (BREZTRI AEROSPHERE) 160-9-4.8 mcg/actuation HFA aerosol inhaler, [...] Detected Not Detected^Not Detected Final Specific gravity [facility] 12/17/2023 1.015 1.003 - 1.035 Final Leukocyte esterase [facility] 12/17/2023 Negative Negative^Negative Final Nitrite [facility] 12/17/2023 Negative Negative^Negative Final Ph 12/17/2023 6.0 5.0 - 8.5 Final Protein [facility] 12/17/2023 Negative Negative^Negative mg/dL Final Urine glucose [facility] 12/17/2023 250 (A) Negative^Negative mg/dL Final Ketones [facility] 12/17/2023 Negative Negative^Negative mg/dL Final Urobilinogen [facility] 12/17/2023 0.2 <1.1 eu/dL Final Bilirubin [facility] 12/17/2023 Negative Negative^Negative Final Hemoglobin [facility] 12/17/2023 Negative Negative^Negative Final Other Testing X-ray [...] on 10/20/2023 8:22 PM Rajni Steiner DO., [facility] Physicians Office: [phone] documented in this encounterAshtabula General Hospital09-04-2024 Miscellaneous Notes* Telephone Encounter - Monica Johnston CMA - 12/30/2023 4:51 PM EDT Pts friend called stated pt needs an order for o2 sent to [facility] fax # [phone] * Telephone Encounter - Rajni Steiner DO - 12/30/2023 4:51 PM EDT Message noted. Order was written and faxed to [facility] today * Telephone Encounter - Monica Johnston CMA - 12/30/2023 4:51 PM EDT Ok thank you documented in this encounterAshtabula General Hospital09-04-2024 Telephone encounter Note* Telephone Encounter - Monica Johnston CMA - 12/30/2023 4:51 PM EDT Pts friend called stated pt needs an order for o2 sent to [facility] fax # [phone] [facility]09-04-2024 Telephone encounter Note* Telephone Encounter - Rajni Steiner DO - 12/30/2023 4:51 PM EDT Message noted. Order was written and faxed to [facility] today [facility]PB[facility] [id number] Telephone encounter Note* Telephone Encounter - Monica Johnston CMA - 12/30/2023 4:51 PM EDT Ok thank you [facility] [employer] [id number] History of Present illness Narrative* Eusebia Huertas DO - 12/29/2023 10:45 AM EDTAssociated Order(s): Trigger Point Injection ([place] [address] [place] [address]): left gluteus tej Post-Procedure Diagnose(s): Trigger point of left side of body Images from the original note were not included. HISTORY OF PRESENT ILLNESS: Monet Recinos is an 63 y.o. @ female. Chief complaint Thoracic pain Thoracic: Intermittent back pain over the years with flare up thoracic pain 4 months ago (08/24/23) after [place] fall in [place] [employer]. Tx at [facility] ER 08/27 with back pain, DX with compression FX T6 and PE-started on eliquis. Follow up with Dr Steiner, calcitonin and norco RX. MRI T-spine done at [facility] 09/10/23. She notes pain in thoracic spine is much improved. She is walking unassisted today. She uses walkeras needed. She is complaining of LT sided low back pain x 2-3 weeks. Taking TYL/IBU, no relief. Denies injury.Pain with sit to stand. Pain at HS. Denies radiation. Denies N/T. Injections and nerve blocks yearsago many years ago. Prior treatment: pain clinic years ago, [facility] ER /, MRI T-spine 09/10/23, calcitonin NS, [...] tablet Take 80 mg by mouth Daily Liyvobv-Poxznjgcsbg-Wvthmgvhik (Breztri Aerosphere) 160-9-4.8 MCG/ACT aerosol Inhale calcitonin, [...] HISTORY: Past Medical History: Diagnosis Date Agoraphobia ([facility]/HCC) Angina at rest ([facility]) Anxiety BiPAP (biphasic positive airway pressure) dependence Bipolar disorder ([facility]) Breast injury CAD (coronary artery disease) ([facility]) Chronic kidney disease Congestive heart failure (CHF) ([facility]/HCC) COPD (chronic obstructive pulmonary disease) ([facility]/HCC) Dementia ([facility]/HCC) Depression ([facility]) GERD (gastroesophageal reflux disease) Liver disease Memory loss Myocardial infarction ([facility]) BONY (obstructive sleep apnea) Osteoarthritis Panic disorder ([facility]/HCC) Psoriasis ([facility]/HCC) PTSD (post-traumatic stress disorder) ([facility]) Shortness of breath Visual impairment [...] T6 and T8 no new fractures Cipriano Heurtas D.O. ASSESSMENT: ICD-10-CM 1. Trigger point of left side of body M79.10 Trigger Point Injection (CPT 25246 or 48235): left gluteus tej 2. Compression fracture of T6 vertebra with routine healing, subsequent encounter S22.050D XR spine 3. Compression fracture of T8 vertebra with routine healing, subsequent encounter S22.060D 4. Osteoporotic compression fracture of vertebra with routine healing, subsequent encounter M80.88XD Trigger Point Injection (CPT 60539 or 09200): left gluteus tej on 12/29/2023 2:58 PM [...] Dr. Huertas/guido Huertas D.O. documented in this encounterSullivan County Memorial [id number] Miscellaneous Notes* Telephone Encounter - Monica ELIAN [...] for [employer] , pts insurnace doesn't cover [employer]. So they have to send everything back [...] She gave me the phone number to [employer]: . Please call them to have them either fax us a O2 equipment order for me to complete, or get their fax number so I can send a new order for the oxygen equipment * Telephone Encounter - Tosin Reyes CMA - 12/24/2023 4:07 PM EDT There are 2 different number to contact for her. The CPAP is [phone] but they emailed me what they need for referral process. The oxygen is through [facility] through [facility] and left them a message to fax something for the referral. * Telephone Encounter - Rajni Steiner DO - 12/24/2023 4:07 PM EDT Message noted. The CPAP number does not concern me, that is for the sleep clinic to handle However, I still have not received anything from [facility] documented in this encounterAshtabula [facility] Hospital08-29-2024 Telephone encounter Note* Telephone Encounter - [...] for [employer] , pts insurnace doesn't cover [employer]. So they have to send everything back [facility] [employer] [id number] Telephone encounter Note* Telephone Encounter - Rajni [...] She gave me the phone number to [facility]: . Please call them to have them either fax us a O2 equipment order for me to complete, or get their fax number so I can send a new order for the oxygen equipment [facility]08-29-20[facility] Telephone encounter Note* Telephone Encounter - Tosin Reyes CMA - 12/24/2023 4:07 PM EDT There are 2 different number to contact for her. The CPAP is [phone] but they emailed me what they need for referral process. The oxygen is through [facility] through [facility] and left them a message to fax something for the referral. [facility]08-29-2024 Telephone encounter Note* Telephone Encounter - Rajni Steiner DO - 12/24/2023 4:07 PM EDT Message noted. The CPAP number does not concern me, that is for the sleep clinic to handle However, I still have not received anything from [facility]08-22-2024 Miscellaneous Notes* Telephone Encounter - Johnna Cortes - 12/17/2023 10:37 AM EDT Received call from Tung at sleep lab that [facility] called there stating pt does not qualify for thecontinuous Oxygen to be bled in with PAP. Will set up with PAP only. Per Dr Meadows, pt's February appt needs to be moved up for new face to face and repeat home O2 eval. Routed to Maryellen to schedule.Spoke to Concepcion at [facility] to inform will be retesting pt in order to try to qualify her for the oxygen. * Telephone Encounter - GLORIA Scott - 12/17/2023 10:37 AM EDT Kymberly called patient and moved patient's from February to 01/14/2024 at 3pm with SE in the [place] office. * Telephone Encounter - Johnna Cortes - 12/17/2023 10:37 AM EDT Thanks documented in this encounterAshtabula General Hospital08-22-2024 Miscellaneous Notes* Telephone Encounter - Tosin Reyes CMA - 12/17/2023 10:37 AM EDT Patient called and O2 dropped to 70's overnight and now she can barely keep it up to 90. I directedher to the ER. * Telephone Encounter - Rajni Steiner DO - 12/17/2023 10:37 AM EDT Message noted. I agree documented in this encounterAshtabula General Hospital08-22-2024 Telephone encounter Note* Telephone Encounter - Johnna Cortes - 12/17/2023 10:37 AM EDT Received call from Tung at sleep lab that [facility] called there stating pt does not qualify for thecontinuous Oxygen to be bled in with PAP. Will set up with PAP only. Per Dr Meadows, pt's November appt needs to be moved up for new face to face and repeat home O2 eval. Routed to Maryellen to schedule.Spoke to Concepcion at [facility] to inform will be retesting pt in order to try to qualify her for the oxygen. [facility]08-22-20[facility] Telephone encounter Note* Telephone Encounter - GLORIA Scott - 12/17/2023 10:37 AM EDT Kymberly called patient and moved patient's from February to 01/14/2024 at 3pm with SE in the [place] office. [facility]08-22-[facility] Telephone encounter Note* Telephone Encounter - Johnna Cortes - 12/17/2023 10:37 AM EDT Thanks [facility]08-22-2024 Telephone encounter Note* Telephone Encounter - Tosin Reyes CMA - 12/17/2023 10:37 AM EDT Patient called and O2 dropped to 70's overnight and now she can barely keep it up to 90. I directedher to the ER. [facility]08-22-20[facility] Telephone encounter Note* Telephone Encounter - Rajni Steiner DO - 12/17/2023 10:37 AM EDT Message noted. I agree [facility]08-20-2024 Miscellaneous Notes* Telephone Encounter - Johnna Cortes - 12/15/2023 1:43 PM EDT Message received from Vicki at [facility] that [facility]ON for PAP/ O2. Pt must use [employer] (fax number is location specific). Spoke to Ciarra at [facility] and for pt zip, she must use [place] location. Faxed all info to [phone] for setup with BiPAP and O2. Pt notified via phone/ my chart message also sent. Phnumber of [phone] also given to pt. documented in this encounterAshtabula General Hospital08-20-2024 Telephone encounter Note* Telephone Encounter - Johnna Cortes - 12/15/2023 1:43 PM EDT Message received from Vicki at [facility] that [facility] for PAP/ O2. Pt must use [employer] (fax number is location specific). Spoke to Ciarra at [facility] and for pt zip, she must use [place] location. Faxed all info to [phone] for setup with BiPAP and O2. Pt notified via phone/ my chart message also sent. Phnumber of [phone] also given to pt. [facility]08-15-2024 Miscellaneous Notes* Telephone Encounter - Kaia Jovel MD - 12/10/2023 10:23 AM EDT Patient of Dr. Meadows, BiPAP 14/9 cm of water with 3L/min supplement oxygen recommended, order formcomplete in [place], please fax Results note sent to patient Titration study on 12/08/2023 (Oeuocv=114.0 lbs; BMI=35.3 kg/m2) DIAGNOSIS: Obstructive Sleep Apnea [...] on a wedge cushion. documented in this encounterAshtabula General Hospital08-15-2024 Telephone encounter Note* Telephone Encounter - Kaia Jovel MD - 12/10/2023 10:23 AM EDT Patient of Dr. Meadows, BiPAP 14/9 cm of water with 3L/min supplement oxygen recommended, order formcomplete in [facility], please fax Results note sent to patient Titration study on 12/08/2023 (Njfhop=619.0 lbs; BMI=35.3 kg/m2) DIAGNOSIS: Obstructive Sleep Apnea [...] elevated such as on a wedge cushion. [employer] Work Phone: [phone]) 988-481607-25-2024 Miscellaneous Notes* Telephone Encounter - Tosin Reyes [...] PM EDT Patient notified documented in this encounterAshtabula General Hospital07-25-2024 Telephone encounter Note* Telephone Encounter - Tosin Reyes CMA - 11/19/2023 4:56 PM EDT Patient has been getting shoulder injections thru Dr. Castro and now they are asking for a referral toortho. [facility]07-25-20[facility] Telephone encounter Note* Telephone Encounter - Rajni Steiner DO - 11/19/2023 4:56 PM EDT Message noted. Who is looking for the referral? If she is already getting injections, why does she need a new referral? [facility]07-25-[facility] Telephone encounter Note* Telephone Encounter - Tosin Reyes CMA - 11/19/2023 4:56 PM EDT She has switched insurance and so they need a referral to Dr. Castro. [facility]07-25-[facility] Telephone encounter Note* Telephone Encounter - Rajni Steiner DO - 11/19/2023 4:56 PM EDT Message noted. I do not know what or why she is getting the injections for. I have not received any reports or feedback from Dr. Castro, therefore I am unable to make a referral. [facility] [id number] Telephone encounter Note* Telephone Encounter - Tosin Reyes CMA - 11/19/2023 4:56 PM EDT [facility] [id number] History of Present illness Narrative* Rajni Steiner DO - 11/02/2023 3:30 PM EDT IM PROGRESS NOTE Patient - Monet Recinos Age - 63 y[facility] 1960 [id number] ASSESSMENT & PLAN 1. Venous insufficiency of both lower extremities -secondary to chronic diastolic heart failure, in conjunction with extended dependent positioning of the legs -is on maximum dose diuretics with torsemide 80-120 mg daily -at this time I advised the patient to elevate her legs 30-40 minutes every morning and afternoon, as well as at nighttime -will order zippered compression stockings through [employer] to allow her to be more independent [...] acute cor pulmonale, unspecified pulmonary embolism type ([facility]) -has completed 2/3 months of anticoagulation [...] 3 times a day. No longer taking Cambria. Did see Orthopedic surgery in follow-up, and [...] Exam Vitals reviewed. Exam conducted with a sales order specialist present (Friend/POA). Constitutional: General: She is not [...] THE MORNING, Disp: 90 tablet, Rfl: 3 nqmwuiyowa-sjkoklbq-guvfhungwn (BREZTRI AEROSPHERE) 160-9-4.8 mcg/actuation HFA aerosol inhaler, [...] on 09/19/2023 12:42 AM Rajni Steiner DO., [facility] Physicians Office: [phone] documented in this encounterAshtabula General Hospital07-05-2024 Miscellaneous Notes* Telephone Encounter - Nuha Nichole RN - 10/30/2023 7:30 AM EDT OV 08/03/23 BMP 09/30/23 documented in this encounterAshtabula General Hospital07-05-2024 Telephone encounter Note* Telephone Encounter - Nuha Nichole RN - 10/30/2023 7:30 AM EDT OV 08/03/23 BMP 09/30/23 [facility]06-12-2024 Miscellaneous Notes* Telephone Encounter - Daisha Marquez CMA - 10/07/2023 3:08 PM EDT ----- Message from Victor Hugo Vincent DO sent at 10/06/2023 11:58 AM EDT ----- Call and let her know that her ultrasound and mammogram were normal. If she still has problems she should come back to see me. ThanksDr. Cornell documented in this [facility]06-12-2024 Telephone encounter Note* Telephone Encounter - Daisha Marquez CMA - 10/07/2023 3:08 PM EDT ----- Message from Victor Hugo Vincent DO sent at 10/06/2023 11:58 AM EDT ----- Call and let her know that her ultrasound and mammogram were normal. If she still has problems she should come back to see me. Thanks, Dr. Cornell [facility]06-07-2024 Miscellaneous Notes* Telephone Encounter - Nuha Nichole RN - 10/02/2023 12:38 AM EDT OV 08/03/23 BMP 09/30/23 documented in this encounterAshtabula General Hospital06-07-2024 Telephone encounter Note* Telephone Encounter - Nuha Nichole RN - 10/02/2023 12:38 AM EDT OV 08/03/23 BMP 09/30/23 [facility]06-05-2024 History of Present illness Narrative* Rajni Steiner, - 09/30/2023 1:30 PM EDT IM PROGRESS NOTE Patient - Monet Recinos Age - 63 y.o. [facility] 1960 [id number] ASSESSMENT & PLAN 1. Closed wedge compression fracture of T6 vertebra with routine healing -reviewed orthopedic consult note with the patient, along with recommendations and goals of treatment -patient advised she cannot use ibuprofen, or any NSAID at the current time for her pain because ofher anticoagulation. -therefore, we will continue the Cambria 5-325 b.i.d. pain relief longer than anticipated [...] Chronic respiratory failure with hypoxia and hypercapnia ([facility]) -continue oxygen support nocturnally and during the day as needed -continue Breztri 2 daily - CBC auto differential; Future 5. Chronic heart failure with preserved ejection fraction ([facility]) -current GDMT includes Jardiance 10 mg [...] taking salmon calcitonin nasal spray, cyclobenzaprine, and Cambria 5-325 b.i.d. the pain is improved from initial, but still present on a dailybasis associated with leaning against her back, or prolonged walking or standing. She was seen by Orthopedic surgery regarding cough, but continued conservative treatment was recommended especially in light her current anticoagulation status. She is taking 2386-1924 mg ibuprofen daily try and help her [...] Exam Vitals reviewed. Exam conducted with a sales order specialist present (Friend/POA). Constitutional: General: She is not [...] THE MORNING, Disp: 90 tablet, Rfl: 3 vvscxcoplc-xghahmpd-qouvjyleob (BREZTRI AEROSPHERE) 160-9-4.8 mcg/actuation HFA aerosol inhaler, [...] on 07/24/2023 10:05 PM Rajni Steiner DO., [facility] Physicians Office: [phone] documented in this encounterAshtabula General Hospital05-30-2024 History of Present illness Narrative* Kacey Lamb Kat, GORING CUTTER-SPINE SUPERVISOR - 09/24/2023 11:00 AM EDT Subjective Patient [...] nursing note reviewed. Exam conducted with a sales order specialist present (printer's assistant). Constitutional: General: She is in acute distress. [...] YONY Vazquez 09/24/23 1650 documented in this encounterAshtabula General Hospital05-15-2024 History of Present illness Narrative* Rajni [...] discharge medication. Patient had been admitted to [facility] because of chest pain. Was sharp stabbing [...] Exam Vitals reviewed. Exam conducted with a sales order specialist present (Friend/POA). Constitutional: General: She is not [...] treatment -no changes today documented in this encounterAshtabula General Hospital04-22-2024 Miscellaneous Notes* Telephone Encounter - Monica [...] only one here Thursday documented in this encounterAshtabula General Hospital04-22-2024 Telephone encounter Note* Telephone Encounter - Monica Johnston CMA - 08/17/2023 10:20 AM EDT Pt called stated that [facility] is waiting for a corrected RX for her portable O2 , stated it needs it sent today she is leaving town in the morning [facility]04-22-2024 Telephone encounter Note* Telephone Encounter - Rajni Steiner DO - 08/17/2023 10:20 AM EDT Message noted. It was corrected last week. Was it sent? [facility]04-22-2024 Telephone encounter Note* Telephone Encounter - Cathleen Arreola - 08/17/2023 10:20 AM EDT Will get it out today, was the only one here Thursday [facility]04-22-2024 Miscellaneous Notes* Telephone Encounter - Leona Gaffney - 08/17/2023 9:06 AM EDT 08/13 Order received Scheduled PAP @ [facility] on 12/06 My chart confirmation [facility] Medicare / Medicaid Pap Order and 06/25/23 Stephanie Wilson Notes Run with TCO2 monitoring, previously tried/failed CPAP. Low threshold to switch to BiPAP if patient intolerant documented in this encounterAshtabula General Hospital04-22-2024 Telephone encounter Note* Telephone Encounter - Leona Gaffney - 08/17/2023 9:06 AM EDT 08/13 Order received Scheduled PAP @ [facility] on 12/06 My chart confirmation [facility] Medicare / Medicaid Pap Order and 06/25/23 Stephanie Meadows Epic Notes Run with TCO2 monitoring, previously tried/failed CPAP. Low threshold to switch to BiPAP if patient intolerant [employer]04-18-2024 Miscellaneous Notes* Telephone Encounter - Kaia Jovel [...] (AHI (3%)=35.8 events/hour; AHI (4%)=13.1 events/hour; Dani SpO2=83.0%;Cmcfcs=562.0 lbs; BMI=38.2 kg/m2) DIAGNOSIS: Obstructive Sleep Apnea [...] - PLEASE FACILITATE THANKS documented in this encounterBrattleboro Memorial HospitalSermo04-18-2024 Telephone encounter Note* Telephone Encounter - Kaia [...] (AHI (3%)=35.8 events/hour; AHI (4%)=13.1 events/hour; Dani SpO2=83.0%;Bkpxcw=629.0 lbs; BMI=38.2 kg/m2) DIAGNOSIS: Obstructive Sleep Apnea [...] two hours. A CPAP titration is recommended. [employer] Work Phone: [phone] Telephone encounter Note* Telephone Encounter - Shari Garcia RN - 08/13/2023 2:39 PM EDT SERGIO - PLEASE FACILITATE THANKS [facility]04-18-2024 Miscellaneous Notes* Telephone Encounter - Sofya Coe CMA - 08/13/2023 10:36 AM EDT Anabela from [facility] called because the order for her O2 has to say POC setting at 2L/Min viaNasal Cannula or her insurance will not cover it. They want us to fax the new order to [phone] * Telephone Encounter - Rajni Steiner DO - 08/13/2023 10:36 AM EDT Message noted. A new order for POC setting at 2L/Min via Nasal Cannula was placed in her chart today. Please fax this to [facility] so she can get her portable O2 concentrator * Telephone Encounter - Cathleen Arreola - 08/13/2023 10:36 AM EDT Got it documented in this encounterAshtabula General Hospital04-18-2024 Telephone encounter Note* Telephone Encounter - Sofya Coe CMA - 08/13/2023 10:36 AM EDT Anabela from [facility] called because the order for her O2 has to say POC setting at 2L/Min viaNasal Cannula or her insurance will not cover it. They want us to fax the new order to [phone] [facility]04-18-2024 Telephone encounter Note* Telephone Encounter - Rajni Steiner DO - 08/13/2023 10:36 AM EDT Message noted. A new order for POC setting at 2L/Min via Nasal Cannula was placed in her chart today. Please fax this to [facility] so she can get her portable O2 concentrator [employer]04-18-2024 Telephone encounter Note* Telephone Encounter - Cathleen Arreola - 08/13/2023 10:36 AM EDT Got it [email or web address] [id number] History of Present illness Narrative* Rajni Steiner [...] Exam Vitals reviewed. Exam conducted with a sales order specialist present (Friend and POA). Constitutional: General: She [...] partial remission, most recent episode unspecified type ([facility]) - Stable - At next visit, consider weaning off propanolol and doxepin documented in this encounterAshtabula General Hospital04-11-2024 Miscellaneous Notes* Telephone Encounter - GLORIA Scott - 08/06/2023 4:43 PM EDT Received call from patient in regard to her POC testing order, narrative writer informed patient that the order was sent to [facility] and that she should contact them if she does not hear from them by next week. Patient verbalized understanding. Patient also asked if she has a current prescription for Breztri, informed patient that a prescription for Breztri was sent to [facility] in [place] on 06/25/2023 with 10 refills, patient verbalized understanding. documented in this encounterAshtabula General Hospital04-11-2024 Telephone encounter Note* Telephone Encounter - GLORIA Scott - 08/06/2023 4:43 PM EDT Received call from patient in regard to her POC testing order, narrative writer informed patient that the order was sent to [facility] and that she should contact them if she does not hear from them by next week. Patient verbalized understanding. Patient also asked if she has a current prescription for Breztri, informed patient that a prescription for Breztri was sent to [facility] in [place] on 06/25/2023 with 10 refills, patient verbalized understanding. [facility]04-05-2024 Miscellaneous Notes* Telephone Encounter - Vandana Resendiz - 07/31/2023 11:51 AM EDT Patient called asking about getting a rx for portable oxygen for a trip on 08/17 she is taking. Advised there is a note in for the doctor and that she would get return call once the doctor has responded. documented in this encounterAshtabula General Hospital04-05-2024 Telephone encounter Note* Telephone Encounter - Vandana Resendiz - 07/31/2023 11:51 AM EDT Patient called asking about getting a rx for portable oxygen for a trip on 08/17 she is taking. Advised there is a note in for the doctor and that she would get return call once the doctor has responded. [facility]04-01-2024 Nurse Note* Gale Chiang RN - 07/27/2023 2:35 PM EDT Discharge instructions and medications reviewed with pt who verbalized understanding. Oxygen delivered by DME provider who instructed pt and her friend/roommate on use. PIV removed. Pt escorted to [facility] in [place] where her friend was waiting to provide transportation to home. [facility]04-01-2024 Nurse Note* Gale Chiang RN - 07/27/2023 2:35 PM EDT Discharge instructions and medications reviewed with pt who verbalized understanding. Oxygen delivered by DME provider who instructed pt and her friend/roommate on use. PIV removed. Pt escorted to lobby [place] where her friend was waiting to provide transportation to home. documented in this encounterAshtabula General Hospital04-01-2024 Progress note* Discharge Planning Note - [...] Dr Steiner asked to correct order on [employer] chat. Vicki update on careport. Corrected oxygen order and face to face note sent via careport to Vicki at [facility] Await confirmation. DEENA Carty, 07/27/2023, [...] On Applied O2 With Exercise/Ambulation 95 % [facility]04-01-2024 Miscellaneous Notes* Discharge Planning Note - [...] Dr Steiner asked to correct order on [employer] chat. Vicki update on careport. Corrected oxygen order and face to face note sent via careport to Vicki at [facility] Await confirmation. DEENA Carty, 07/27/2023, [...] Referral sent to [facility] [facility] [employer], andPAULETTE Finch ([place]- P# ; F# ) ([place]- P# ; F# ) ([place]- P# ; F# ) ([place]- P# ; F# ) ([place]- P# ; F# ) ([place]- P# ; F# ) ([place]- P# [phone] ; F# [phone]) * Discharge Planning Note - DEENA Raines [...] Self Care County Information [place] [facility] [place] Patient Information Primary Caregiver Self Support System Immediate family;Extended family (roommate/friend/aid Norma, 3 children out of state) Stressors Type of stressor (does not endorse) Income Information Income Information Disability Referral To Community Resources Denies needs Discharge Planning Living Arrangements (with roommate Norma) Support Systems distributor sales manager/social services specialist;Friends;Children;Therapist (friend Norma, 3 children out of state, psychiatrist, PASSPORT disease case manager) Assistance Needed walker, meals on wheel, PASSPORT Services Type of Residence Private residence Private Residence 1 blue Residence Accessibility Steps into home Number of Steps 5 Home Care Services Yes Type of Home Care Services Home health aide;Meals on Wheels;Other (Comment) (PASSPORT Services: Norma is paid aid for 2 hrs per day) Community Agencies Currently Utilized [facility];Mental health centers (PASSPORT Press And Blow Machine Tender: Elise; Psychiatrist Dr. Collier, [facility]) Patient expects to be discharged to: home [...] services with Dr. Collier in [facility] for medical management; pt does not endorse any mental health concerns, negative [place] screen. Pt friend/roommate Norma provides transportation. Pt [...] O2. Pt aware of home O2 evaluation; narrative writer reviewed areaE's, pt preference is [employer]. Educated on [facility], pt does not endorse current needs. [...] clean and dry. Skin protectant as needed. Arapaho pads in place. * Plan of Care - Mary Cee RN - 07/27/2023 1:31 AM EDT Problem: Pain Goal: Patient goal is pain score less than 4, able to rest, and participant in treatment plan as appropriate Description: INTERVENTIONS: 1. Encourage patient or legal insurance claim representative to report early pain and ask [...] per policy 9. Teach patient or legal insurance claim representative interventions for comforting Outcome: Progressing Note: [...] that there are some limitations compared to lwdm-bl-bunm evaluations. We elected to proceed. PULMONARY CONSULT Patient - Monet Dhillon Cool Age - 63 y[facility] 1960 [id number] Date of Admission - 07/25/2023 4:29 PM Consulting Service/Physician Consulting: Consulting Providers Provider Service Specialty Nathaneil Carlos MD Z Pulmonology Pulmonary Medicine Primary [...] longer uses a BIPAP 01/28/23 Bipolar disorder ([facility]) Breast injury CHF (congestive heart failure) ([facility]) Chipped tooth Chronic kidney disease COPD (chronic obstructive pulmonary disease) ([facility]) Coronary artery disease Dementia ([facility]) Depression Diarrhea frequent bouts /involuntary Dizziness GERD (gastroesophageal reflux disease) Headache History of coronary artery bypass graft 08/14/2020 Liver disease Low back pain Memory loss Myocardial infarction ([facility]) Apr 2009, swith stent placement Obesity BONY treated with BiPAP 07/31/2022 Osteoarthritis Panic disorder Psoriasis PTSD (post-traumatic stress disorder) Rotator cuff tear L Shortness of breath Sleep apnea Visual impairment glasses Past Surgical History: Procedure Laterality Date BREAST BIOPSY BREAST CYST EXCISION Cardiac catheterization N/A 01/09/2020 Performed by Yefri Khan MD at [facility] Cardiac catheterization-LV Cors N/A 08/06/2020 Performed by Hazel Painting MD at [facility] SECTION CHOLECYSTECTOMY COLONOSCOPY N/A 04/03/2017 Performed by Jose Beaver MD at [facility] Coronary angiogram and left ventricular gram/pressure N/A 01/09/2020 Performed by Yefri Khan MD at [facility] CORONARY ANGIOPLASTY WITH STENT PLACEMENT CORONARY ARTERY BYPASS GRAFT X4/ THOMPSON/ SVG X3 / RIGHT UPPER LEG OPEN VEIN HARVEST/ LEFT UPPER LEG OPEN VEING HARVEST /GINETTE N/A 08/13/2020 Performed by Leroy Meng MD at [facility] Drug eluting stent left anterior descending N/A 01/09/2020 Performed by Yefri Khan MD at [facility] EXCISION SEROMA LOWER EXTREMITY Left 10/07/2022 Performed by Victor Hugo Vincent DO at [facility] Intravascular ultrasound coronary N/A 08/06/2020 Performed by Hazel Painting MD at [facility] Intravascular ultrasound coronary N/A 01/09/2020 Performed by Yefri Khan MD at [facility] NOTCHARGED/Thrombolysis arterial initial treatment N/A 01/09/2020 Performed by Yefri Khan MD at [facility]S TONSILLECTOMY Review of [...] BY MOUTH IN THE MORNING 90 tablet pzrojprsku-bnndiqie-ciqmhlucmi (BREZTRI AEROSPHERE) 160-9-4.8 mcg/actuation HFA aerosol inhaler [...] min Stress: No Stress Concern Present (07/25/2023) [employer] - Occupational Stress Questionnaire Feeling of Stress : Only a little Recent Concern: Stress - Stress Concern Present (07/25/2023) [place] [employer] - Occupational Stress Questionnaire Feeling of Stress : Very much Social Connections: Moderately Isolated (07/25/2023) Social Connection and Isolation Panel [NHANES] Frequency of Communication with Friends and Family: Three times a week Frequency of Social Gatherings with Friends and Family: Three times a week Attends Worship Services: More than 4 times per year [...] Component Value Units Date/Time Blood culture #1 [[id number]] Collected: 07/25/23 175 Specimen: Blood Updated: 07/26/23 1007 Culture NO GROWTH <24 HRS SARS/FLU A+B/RSV by NAAT/Molecular (M4RT Collection Tube) [[id number]] Collected: 07/25/23 175 Specimen: Nasopharynx Updated: 07/25/23 1925 FLU A PCR Negative FLU B PCR Negative RSV by PCR Negative SARS CoV 2 BY PCR Not Detected Blood culture #2 [[id number]] Collected: 07/25/23 1745 Specimen: Blood Updated: 07/26/23 1007 Culture NO GROWTH <24 HRS SARS/FLU A+B/RSV by NAAT/Molecular (M4RT Collection Tube) [[id number]] Collected: 07/24/232149 Specimen: Nasopharynx Updated: 07/24/232243 FLU [...] Component Value Units Date/Time Blood culture #1 [[id number]] Collected: 07/25/231756 Specimen: Blood Updated: 07/26/23 1007 Culture NO GROWTH <24 HRS SARS/FLU A+B/RSV by NAAT/Molecular (M4RT Collection Tube) [[id number]] Collected: 07/25/231749 Specimen: Nasopharynx Updated: 07/25/23 192 FLU A PCR Negative FLU B PCR Negative RSV by PCR Negative SARS CoV 2 BY PCR Not Detected Blood culture #2 [[id number]] Collected: 07/25/23 174 Specimen: Blood Updated: 07/26/23 1007 Culture NO GROWTH <24 HRS SARS/FLU A+B/RSV by NAAT/Molecular (M4RT Collection Tube) [[id number]] Collected: 07/24/232149 Specimen: Nasopharynx Updated: 07/24/232243 FLU [...] regurgitation or stenosis. Mitral Valve: There is tiyjh-cq-utcj regurgitation. There is no evidence of mitral valve stenosis. Tricuspid Valve: There is moderate regurgitation. RVSP estimated at 40-45 mmHg. Echo complete W/ contrast Result Date: 11/19/2021 Left Ventricle: Systolic function is normal with an ejection fraction of 55-60%. Aortic Valve: There is no regurgitation or stenosis. Mitral Valve: There is kwthv-lu-mbbx regurgitation. There is no evidence of mitral [...] Description: INTERVENTIONS: 1. Encourage patient or legal insurance claim representative to report early pain and ask [...] per policy 9. Teach patient or legal insurance claim representative interventions for comforting Outcome: Progressing Note: Evaluation of progress towards goal: Continue to assess for pain and address accordingly Problem: Moderate - High Risk Fall Score Description: Shearer Fall Score of =/> 25 or indicated by [facility] Assessment Goal: Patient should be free from fall Description: Interventions: 1. [place] to environment 2. Hourly rounds addressing the [...] non-skid footwear 11. Teach patient and patient insurance claim representative to maintain environment for safety and [...] (cane, walker) within reach 19. Request patient insurance claim representative bring adaptive equipment/mobility aids from home or obtain and provide as needed 20. Consult pharmacy regarding effects of med's affecting mobility, cognition, and alternatives 21. Obtain physician order for PT if risk factors associated with mobility are present 22. Obtain physician order for OT as appropriate 23. Utilize diversional activities 24. Educate patient and patient insurance claim representative how to maintain a safe environment during visitationtimes (notify nurse prior to leaving bedside) 25. Consider appropriateness of medical or non-medical lab assistant 26. Set up voiding schedule as [...] Description: INTERVENTIONS: 1. Encourage patient or legal insurance claim representative to report early pain and ask [...] per policy 9. Teach patient or legal insurance claim representative interventions for comforting Outcome: Progressing Note: [...] at the bedside 7. Instruct patient/ patient insurance claim representative about use of safety devices 8. Include patient/ patient insurance claim representative in decisions related to safety Outcome: Progressing Note: Evaluation of progress towards goal: Remains free from injury. Safety precautions maintained. Problem: Knowledge Deficit Goal: Patient/patient insurance claim representative demonstrates understanding of disease process, treatment [...] be free from fall Description: Interventions: 1. [place] to environment 2. Hourly rounds addressing the [...] non-skid footwear 11. Teach patient and patient insurance claim representative to maintain environment for safety and [...] (cane, walker) within reach 19. Request patient insurance claim representative bring adaptive equipment/mobility aids from home or obtain and provide as needed 20. Consult pharmacy regarding effects of med's affecting mobility, cognition, and alternatives 21. Obtain physician order for PT if risk factors associated with mobility are present 22. Obtain physician order for OT as appropriate 23. Utilize diversional activities 24. Educate patient and patient insurance claim representative how to maintain a safe environment during visitationtimes (notify nurse prior to leaving bedside) 25. Consider appropriateness of medical or non-medical lab assistant 26. Set up voiding schedule as [...] denies shortness of breath. documented in this encounterBr[facility] HospitalSermo[facility]-01-[facility] Progress note* Discharge Planning Note - Concepcion Vargas - 07/27/2023 11:12 AM EDT DISCHARGE PLANNING NOTE Referral sent to [facility], andPAULETTE Finch ([place]- P# ; F# ) ([place]- P# ; F# ) ([place]- P# ; F# ) ([place]- P# ; F# ) ([place]- P# ; F# ) ([place]- P# ; F# ) ([place]- P# [phone] ; F# [phone]) [facility] Progress [facility]* Discharge Planning Note - DEENA Raines - 07/27/2023 11:06 AM EDT DISCHARGE PLANNING NOTE Tasked Transition Center to send referral to [facility] for home O2 with portability for DC today; requested delivery time of equipment. [email or web address] [id number] Hospital course Narrative* Rajni Cardoso DO Obdulia - 07/27/2023 10:45 AM EDT Images from the original note were not included. HOSPITAL DISCHARGE NOTE Patient Name: Monet Recinos : 1960 PCP: Rajni Steiner Jr, DO Date of admission: 07/25/2023 Date of discharge: 07/27/2023 Discharge diagnoses: Principal Problem: Chronic respiratory failure with hypoxia and hypercapnia (CMS-HCC) Active Problems: Atherosclerotic heart disease of lime coronary artery with other forms of angina [...] 160-9-4.8 mcg/actuation HFA aerosol inhaler Generic drug: jumtgpqtof-llbbwckz-cotlpxfmpd Inhale 2 puffs in the morning and [...] on discharging this patient. documented in this encounterAshtabula [facility]04-[facility] History of Present illness Narrative* Rebecca [...] depression, and bipolar disorder. documented in this encounterAshtabula [facility] Hospital04-01-2024 Progress note* Discharge Planning Note - DEENA Raines - 07/27/2023 10:21 AM EDT Images from the original note were not included. DISCHARGE PLANNING NOTE 07/27/23 1005 Discharge Disposition Discharge Disposition Home with Self Care County Information County of Residence [place] Patient Information Primary Caregiver Self Support System Immediate family;Extended family (roommate/friend/aid Norma, 3 children out of state) Stressors Type of stressor (does not endorse) Income Information Income Information Disability Referral To Community Resources Denies needs Discharge Planning Living Arrangements (with roommate Norma) Support Systems distributor sales manager/social services specialist;Friends;Children;Therapist (friend Norma, 3 children out of state, psychiatrist, PASSPORT disease case manager) Assistance Needed walker, meals on wheel, PASSPORT Services Type of Residence Private residence Private Residence 1 [facility] Accessibility Steps into home Number of Steps 5 Home Care Services Yes Type of Home Care Services Home health aide;Meals on Wheels;Other (Comment) (PASSPORT Services: Norma is paid aid for 2 hrs per day) Community Agencies Currently Utilized [facility];Mental health centers ([employer] Press And Blow Machine Tender: Elise; Psychiatrist Dr. Collier [facility]) Patient expects to be discharged to: home [...] services with Dr. Collier in [facility] for medical management; pt does not endorse any mental health concerns, negative [place] screen. Pt friend/roommate Norma provides transportation. Pt is utilizing [facility], meals on wheels & roommate Norma is pt paid care provider for 2 hours per day. Pt relayed she speaks with her daughters who live out of state most days by phone & her son as well; family provides natural supports. Patient's preferred pharmacy is [facility]. PCP verified as Dr. Rajni Steiner. Update from attending, monitoring for home O2. Pt aware of home O2 evaluation; narrative writer reviewed areaDME's, pt preference is [employer]. Educated on [facility], pt does not endorse current needs. Opportunity provided to ask questions, pt does not endorse any at this time. Plan to prevent readmission is for pt to follow up with PCP, pt prefers to make own appointment, follow DC instructions including medication compliance and to reach out to health care team as needed. Care Navigation following for safe care transition. [facility]04-01-[facility] Plan of care note* Plan of [...] clean and dry. Skin protectant as needed. Arapaho pads in place. [email or web address] [id number] Plan of care note* Plan of Care - Mary Cee RN - 07/27/2023 1:31 AM EDT Problem: Pain Goal: Patient goal is pain score less than 4, able to rest, and participant in treatment plan as appropriate Description: INTERVENTIONS: 1. Encourage patient or legal insurance claim representative to report early pain and ask [...] per policy 9. Teach patient or legal insurance claim representative interventions for comforting Outcome: Progressing Note: Evaluation of progress towards goal: patient verbalized no pain [facility]03-31-2024 Plan of care note* Plan of [...] Nebulizer Duration (Minutes) 10 Position High [facility]03-31-2024 Consult note* Telehealth Consult - Nathaniel [...] that there are some limitations compared to pyfm-uk-udrz evaluations. We elected to proceed. PULMONARY CONSULT [...] longer uses a BIPAP 01/28/23 Bipolar disorder ([facility]) Breast injury CHF (congestive heart failure) ([facility]) Chipped tooth Chronic kidney disease COPD (chronic obstructive pulmonary disease) ([facility]) Coronary artery disease Dementia ([facility]) Depression Diarrhea frequent bouts /involuntary Dizziness GERD [...] 01/09/2020 Performed by Yefri Khan MD at [facility] Cardiac catheterization-LV Cors N/A 08/06/2020 Performed by Hazel Painting MD at [facility] SECTION CHOLECYSTECTOMY COLONOSCOPY N/A 04/03/2017 Performed by Jose Beaver MD at [facility] Coronary angiogram and left ventricular gram/pressure N/A 01/09/2020 Performed by Yefri Khan MD at [facility] CORONARY ANGIOPLASTY WITH STENT PLACEMENT CORONARY ARTERY BYPASS GRAFT X4/ THOMPSON/ SVG X3 / RIGHT UPPER LEG OPEN VEIN HARVEST/ LEFT UPPER LEG OPEN VEING HARVEST /GINETTE N/A 08/13/2020 Performed by Leroy Meng MD at [facility] Drug eluting stent left anterior descending N/A 01/09/2020 Performed by Yefri Khan MD at [facility] EXCISION SEROMA LOWER EXTREMITY Left 10/07/2022 Performed by Victor Hugo Vincent DO at [facility] Intravascular ultrasound coronary N/A 08/06/2020 Performed by Hazel Painting MD at [facility] Intravascular ultrasound coronary N/A 01/09/2020 Performed by Yefri Khan MD at [facility] NOTCHARGED/Thrombolysis arterial initial treatment N/A 01/09/2020 Performed by Yefri Khan MD at [facility]S TONSILLECTOMY Review of [...] BY MOUTH IN THE MORNING 90 tablet fwofxddqku-uulppjnu-rtdskbpvzu (BREZTRI AEROSPHERE) 160-9-4.8 mcg/actuation HFA aerosol inhaler [...] min Stress: No Stress Concern Present (07/25/2023) [place] [employer] - Occupational Stress Questionnaire Feeling of Stress : Only a little Recent Concern: Stress - Stress Concern Present (07/25/2023) [place] [employer] - Occupational Stress Questionnaire Feeling of Stress : Very much Social Connections: Moderately Isolated (07/25/2023) Social Connection and Isolation Panel [NHANES] Frequency of Communication with Friends and Family: Three times a week Frequency of Social Gatherings with Friends and Family: Three times a week Attends Worship Services: More than 4 times per year [...] Component Value Units Date/Time Blood culture #1 [[id number]] Collected: 07/25/231756 Specimen: Blood Updated: 07/26/23 1007 Culture NO GROWTH <24 HRS SARS/FLU A+B/RSV by NAAT/Molecular (M4RT Collection Tube) [[id number]] Collected: 07/25/231749 Specimen: Nasopharynx Updated: 07/25/231924 FLU A PCR Negative FLU B PCR Negative RSV by PCR Negative SARS CoV 2 BY PCR Not Detected Blood culture #2 [[id number]] Collected: 07/25/231744 Specimen: Blood Updated: 07/26/23 1007 Culture NO GROWTH <24 HRS SARS/FLU A+B/RSV by NAAT/Molecular (M4RT Collection Tube) [[id number]] Collected: 07/24/232149 Specimen: Nasopharynx Updated: 07/24/232243 FLU [...] Component Value Units Date/Time Blood culture #1 [[id number]] Collected: 07/25/231756 Specimen: Blood Updated: 07/26/23 1007 Culture NO GROWTH <24 HRS SARS/FLU A+B/RSV by NAAT/Molecular (M4RT Collection Tube) [[id number]] Collected: 07/25/231749 Specimen: Nasopharynx Updated: 07/25/231924 FLU A PCR Negative FLU B PCR Negative RSV by PCR Negative SARS CoV 2 BY PCR Not Detected Blood culture #2 [[id number]] Collected: 07/25/231744 Specimen: Blood Updated: 07/26/23 1007 Culture NO GROWTH <24 HRS SARS/FLU A+B/RSV by NAAT/Molecular (M4RT Collection Tube) [[id number]] Collected: 07/24/232149 Specimen: Nasopharynx Updated: 07/24/232243 FLU [...] MD on 07/24/2023 9:58 PM I, Tristen Neley MD have personally reviewed the image(s) and agree with and/or edited the report Finalized by Tristen Neely MD on 07/24/2023 10:05 PM Echo complete W/ contrast Result Date: 04/15/2023 Left Ventricle: Left ventricle appears normal in size. Wall thickness is normal. Systolic function is normal with an ejection fraction of 55-60%. Aortic Valve: There is no regurgitation or stenosis. Mitral Valve: There is mivnk-qf-eyyh regurgitation. There is no evidence of mitral valve stenosis. Tricuspid Valve: There is moderate regurgitation. RVSP estimated at 40-45 mmHg. Echo complete W/ contrast Result Date: 11/19/2021 Left Ventricle: Systolic function is normal with an ejection fraction of 55-60%. Aortic Valve: There is no regurgitation or stenosis. Mitral Valve: There is dzwlj-gu-ouqm regurgitation. There is no evidence of mitral valve stenosis. Tricuspid Valve: There is moderate regurgitation. RVSP calculated at 42 mmHg. RVSP is based on RA pressure of 3 mmHg. ASSESSMENT / PLAN: COPD - BD Acute hypoxic resp failure - O2; wean as tolerated ? Home O2 BONY/OHS BPAP as tolerated Sleep study scheduled for next week DW patient [employer] Work Phone: [phone]) 883-422803-31-2024 Plan of care note* Plan of Care - Gale Chiang RN - 07/26/2023 10:00 AM EDT Problem: Pain Goal: Patient goal is pain score less than 4, able to rest, and participant in treatment plan as appropriate Description: INTERVENTIONS: 1. Encourage patient or legal insurance claim representative to report early pain and ask [...] per policy 9. Teach patient or legal insurance claim representative interventions for comforting Outcome: Progressing Note: Evaluation of progress towards goal: Continue to assess for pain and address accordingly Problem: Moderate - High Risk Fall Score Description: Shearer Fall Score of =/> 25 or indicated by [facility] Assessment Goal: Patient should be free from fall Description: Interventions: 1. [place] to environment 2. Hourly rounds addressing the [...] non-skid footwear 11. Teach patient and patient insurance claim representative to maintain environment for safety and [...] (cane, walker) within reach 19. Request patient insurance claim representative bring adaptive equipment/mobility aids from home or obtain and provide as needed 20. Consult pharmacy regarding effects of med's affecting mobility, cognition, and alternatives 21. Obtain physician order for PT if risk factors associated with mobility are present 22. Obtain physician order for OT as appropriate 23. Utilize diversional activities 24. Educate patient and patient insurance claim representative how to maintain a safe environment during visitationtimes (notify nurse prior to leaving bedside) 25. Consider appropriateness of medical or non-medical lab assistant 26. Set up voiding schedule as appropriate (every 2 hours) Outcome: Progressing Note: Evaluation of progress towards goal: PT is free of falls, hourly rounding is completed, area is kept clear. [facility]03-31-[facility] Plan of care note* Plan of [...] Nebulizer Duration (Minutes) 10 Position Semi [facility]03-31-2024 Plan of care note* Plan of Care - Lissette Mathews RN - 07/26/2023 4:47 AM EDT Problem: Pain Goal: Patient goal is pain score less than 4, able to rest, and participant in treatment plan as appropriate Description: INTERVENTIONS: 1. Encourage patient or legal insurance claim representative to report early pain and ask [...] per policy 9. Teach patient or legal insurance claim representative interventions for comforting Outcome: Progressing Note: [...] at the bedside 7. Instruct patient/ patient insurance claim representative about use of safety devices 8. Include patient/ patient insurance claim representative in decisions related to safety Outcome: Progressing Note: Evaluation of progress towards goal: Remains free from injury. Safety precautions maintained. Problem: Knowledge Deficit Goal: Patient/patient insurance claim representative demonstrates understanding of disease process, treatment [...] Score of =/> 25 or indicated by [facility] Assessment Goal: Patient should be free from fall Description: Interventions: 1. [place] to environment 2. Hourly rounds addressing the [...] non-skid footwear 11. Teach patient and patient insurance claim representative to maintain environment for safety and [...] (cane, walker) within reach 19. Request patient insurance claim representative bring adaptive equipment/mobility aids from home or obtain and provide as needed 20. Consult pharmacy regarding effects of med's affecting mobility, cognition, and alternatives 21. Obtain physician order for PT if risk factors associated with mobility are present 22. Obtain physician order for OT as appropriate 23. Utilize diversional activities 24. Educate patient and patient insurance claim representative how to maintain a safe environment during visitationtimes (notify nurse prior to leaving bedside) 25. Consider appropriateness of medical or non-medical lab assistant 26. Set up voiding schedule as [...] distress noted. PT denies shortness of breath. [email or web address] [id number] History and physical note* Rajni Gimenez MD [...] longer uses a BIPAP 01/28/23 Bipolar disorder ([facility]) Breast injury CHF (congestive heart failure) ([facility]) Chipped tooth Chronic kidney disease COPD (chronic obstructive pulmonary disease) ([facility]) Coronary artery disease Dementia ([facility]) Depression Diarrhea frequent bouts /involuntary Dizziness GERD (gastroesophageal reflux disease) Headache History of coronary artery bypass graft 08/14/2020 Liver disease Low back pain Memory loss Myocardial infarction ([facility]) Apr 2009, swith stent placement Obesity BONY treated with BiPAP 07/31/2022 Osteoarthritis Panic disorder Psoriasis PTSD (post-traumatic stress disorder) Shortness of breath Sleep apnea Visual impairment glasses PAST SURGICAL HISTORY: Past Surgical History: Procedure Laterality Date BREAST BIOPSY BREAST CYST EXCISION Cardiac catheterization N/A 01/09/2020 Performed by Yefri Khan MD at [facility] Cardiac catheterization-LV Cors N/A 08/06/2020 Performed by Hazel Painting MD at [facility] SECTION CHOLECYSTECTOMY COLONOSCOPY N/A 04/03/2017 Performed by Jose Beaver MD at [facility] Coronary angiogram and left ventricular gram/pressure N/A 01/09/2020 Performed by Yefri Khan MD at [facility] CORONARY ANGIOPLASTY WITH STENT PLACEMENT CORONARY ARTERY BYPASS GRAFT X4/ THOMPSON/ SVG X3 / RIGHT UPPER LEG OPEN VEIN HARVEST/ LEFT UPPER LEG OPEN VEING HARVEST /GINETTE N/A 08/13/2020 Performed by Leroy Meng MD at [facility] Drug eluting stent left anterior descending N/A 01/09/2020 Performed by Yefri Khan MD at [facility] EXCISION SEROMA LOWER EXTREMITY Left 10/07/2022 Performed by Victor Hugo Vincent DO at [facility] Intravascular ultrasound coronary N/A 08/06/2020 Performed by Hazel Painting MD at [facility] Intravascular ultrasound coronary N/A 01/09/2020 Performed by Yefri Khan MD at [facility] NOTCHARGED/Thrombolysis arterial initial treatment N/A 01/09/2020 Performed by Yefri Khan MD at [facility] TONSILLECTOMY Travel History [...] min Stress: No Stress Concern Present (07/25/2023) [employer] [employer] [employer] [facility] [employer] [facility] - Occupational Stress Questionnaire Feeling of Stress : Only a little Recent Concern: Stress - Stress Concern Present (07/25/2023) [employer] [employer] - Occupational Stress Questionnaire Feeling of Stress : Very much Social Connections: Moderately Isolated (07/25/2023) Social Connection and Isolation Panel [NHANES] Frequency of Communication with Friends and Family: Three times a week Frequency of Social Gatherings with Friends and Family: Three times a week Attends Worship Services: More than 4 times per year [...] BY MOUTH IN THE MORNING 90 tablet ggqpzlxxvr-jzzhidhw-jjconxadwy (BREZTRI AEROSPHERE) 160-9-4.8 mcg/actuation HFA aerosol inhaler [...] is stable and further pending her course. [email or web address] [id number] History and physical note* Rajni Gimenez MD [...] longer uses a BIPAP 01/28/23 Bipolar disorder ([facility]) Breast injury CHF (congestive heart failure) ([facility]) Chipped tooth Chronic kidney disease COPD (chronic obstructive pulmonary disease) ([facility]) Coronary artery disease Dementia ([facility]) Depression Diarrhea frequent bouts /involuntary Dizziness GERD (gastroesophageal reflux disease) Headache History of coronary artery bypass graft 08/14/2020 Liver disease Low back pain Memory loss Myocardial infarction ([facility]) Apr 2009, swith stent placement Obesity BONY treated with BiPAP 07/31/2022 Osteoarthritis Panic disorder Psoriasis PTSD (post-traumatic stress disorder) Shortness of breath Sleep apnea Visual impairment glasses PAST SURGICAL HISTORY: Past Surgical History: Procedure Laterality Date BREAST BIOPSY BREAST CYST EXCISION Cardiac catheterization N/A 01/09/2020 Performed by Yefri Khan MD at [facility] Cardiac catheterization-LV Cors N/A 08/06/2020 Performed by Hazel Painting MD at [facility] SECTION CHOLECYSTECTOMY COLONOSCOPY N/A 04/03/2017 Performed by Jose Beaver MD at [facility] Coronary angiogram and left ventricular gram/pressure N/A 01/09/2020 Performed by Yefri Khan MD at [facility] CORONARY ANGIOPLASTY WITH STENT PLACEMENT CORONARY ARTERY BYPASS GRAFT X4/ THOMPSON/ SVG X3 / RIGHT UPPER LEG OPEN VEIN HARVEST/ LEFT UPPER LEG OPEN VEING HARVEST /GINETTE N/A 08/13/2020 Performed by Leroy Meng MD at [facility] Drug eluting stent left anterior descending N/A 01/09/2020 Performed by Yefri Khan MD at [facility] EXCISION SEROMA LOWER EXTREMITY Left 10/07/2022 Performed by Victor Hugo Vincent DO at [facility] Intravascular ultrasound coronary N/A 08/06/2020 Performed by Hazel Painting MD at [facility] Intravascular ultrasound coronary N/A 01/09/2020 Performed by Yefri Khan MD at [facility] NOTCHARGED/Thrombolysis arterial initial treatment N/A 01/09/2020 Performed by Yefri Khan MD at [facility] TONSILLECTOMY Travel History [...] min Stress: No Stress Concern Present (07/25/2023) [facility] [employer] [facility] [employer] [facility] - Occupational Stress Questionnaire Feeling of Stress : Only a little Recent Concern: Stress - Stress Concern Present (07/25/2023) [employer] [employer] [facility] - Occupational Stress Questionnaire Feeling of Stress : Very much Social Connections: Moderately Isolated (07/25/2023) Social Connection and Isolation Panel [NHANES] Frequency of Communication with Friends and Family: Three times a week Frequency of Social Gatherings with Friends and Family: Three times a week Attends Worship Services: More than 4 times per year [...] BY MOUTH IN THE MORNING 90 tablet gtvnwhogxs-bjrgymry-mlserugkzk (BREZTRI AEROSPHERE) 160-9-4.8 mcg/actuation HFA aerosol inhaler [...] further pending her course. documented in this encounterOhioHealth Nelsonville Health [email or web address] [id number] Note Procedure: Chest x-ray performed Number of views:2 History:Shortness of breath Comparison:07/24/2023 Findings: The heart and lungs show no acute findings, and the mediastinum and satnam are grossly negative . Impression: 1. No acute change. Finalized by Abdelrahman Patel MD on 07/25/2023 5:16 [id number] Physician Emergency department Note* Mary Lock MD [...] - Primary Other Visit Diagnoses COPD exacerbation ([facility]) Relevant Medications ipratropium-albuteroL (DUONEB) 0.5 mg-3 mg(2.5 mg base)/3 mL nebulizer solution 3 mL (Completed) dexAMETHasone sodium phos (PF) (DECADRON) injection 10 mg ipratropium-albuteroL (DUONEB) 0.5 mg-3 mg(2.5 mg base)/3 mL nebulizer solution 3 mL Acute respiratory failure with hypoxia and hypercapnia ([facility]) Past Medical History: Diagnosis Date Agoraphobia Angina at rest Anxiety BiPAP (biphasic positive airway pressure) dependence Patient states she no longer uses a BIPAP 10/4/23 Bipolar disorder ([facility]) Breast injury CHF (congestive heart failure) ([facility]) Chipped tooth COPD (chronic obstructive pulmonary disease) ([facility]) Coronary artery disease Dementia ([facility]) Depression GERD (gastroesophageal reflux disease) History of coronary artery bypass graft 08/14/2020 Liver disease Low back pain Myocardial infarction ([facility]) Apr 2009, swith stent placement Obesity BONY treated with BiPAP 07/31/2022 Osteoarthritis Panic disorder PTSD (post-traumatic stress disorder) Sleep apnea Visual impairment glasses Past Surgical History: Procedure Laterality Date BREAST BIOPSY BREAST CYST EXCISION Cardiac catheterization N/A 01/09/2020 Performed by Yefri Khan MD at [facility] Cardiac catheterization-LV Cors N/A 08/06/2020 Performed by Hazel Painting MD at [facility] SECTION CHOLECYSTECTOMY COLONOSCOPY N/A 04/03/2017 Performed by Jose Beaver MD at [facility] Coronary angiogram and left ventricular gram/pressure N/A 01/09/2020 Performed by Yefri Khan MD at [facility] CORONARY ANGIOPLASTY WITH STENT PLACEMENT CORONARY ARTERY BYPASS GRAFT X4/ THOMPSON/ SVG X3 / RIGHT UPPER LEG OPEN VEIN HARVEST/ LEFT UPPER LEG OPEN VEING HARVEST /GINETTE N/A 08/13/2020 Performed by Leroy Meng MD at [facility] Drug eluting stent left anterior descending N/A 01/09/2020 Performed by Yefri Khan MD at [facility] EXCISION SEROMA LOWER EXTREMITY Left 10/07/2022 Performed by Victor Hugo Vincent DO at [facility] Intravascular ultrasound coronary N/A 08/06/2020 Performed by Hazel Painting MD at [facility] Intravascular ultrasound coronary N/A 01/09/2020 Performed by Yefri Khan MD at [facility] NOTCHARGED/Thrombolysis arterial initial treatment N/A 01/09/2020 Performed by Yefri Khan MD at [facility] TONSILLECTOMY Travel Screening [...] at this time. There is no community services officer available in the ED, so will workon [...] Clinical Impressions as of 07/25/231926 COPD exacerbation ([facility]) Acute respiratory failure with hypoxia and hypercapnia ([facility]) Hypoxia MDM Medical Decision Making Heena Bob ([facility]) documented for Dr. Lock. Chart Reviewed. Date: [...] signing this emergency patient record, the Emergency Physician/SUPPLY AND DISTRIBUTION MANAGER/PA-C attests that all entries made into the electronic medical record by arianna John prior to the Physician/SUPPLY AND DISTRIBUTION MANAGER/PA-C signature reflect an accurate accounting of the evaluation and care rendered by that Emergency Physician/SUPPLY AND DISTRIBUTION MANAGER/PA-C. The Emergency Physician/SUPPLY AND DISTRIBUTION MANAGER/PA-C assumes full responsibility for those entries. The Emergency Physician/SUPPLY AND DISTRIBUTION MANAGER/PA-C also attests that any patient testing or treatment that was instituted by nursing staff in accordance to Emergency Department Preemptive Guidelines have been reviewed and unless so stated elsewhere in this patient chart, the Physician/SUPPLY AND DISTRIBUTION MANAGER/PA-C agrees with the testing and care provided. No Additional Attestations Heena Tran 07/25/23 1728 Heena Tran 07/25/23 1811 Heena Tran 07/25/23 1812 Heena Tran 07/25/23 1812 Heena Tran 07/25/23 1824 Mary Lock MD 07/25/23 182 Heena Tran 07/25/23 1837 Heena Tran 07/25/23 1905 Mary Lock MD 07/25/23 192 Mary Lock MD 07/25/231926 [facility]03-30-2024 Emergency department Note* Mary Lock MD [...] - Primary Other Visit Diagnoses COPD exacerbation ([facility]) Relevant Medications ipratropium-albuteroL (DUONEB) 0.5 mg-3 mg(2.5 mg base)/3 mL nebulizer solution 3 mL (Completed) dexAMETHasone sodium phos (PF) (DECADRON) injection 10 mg ipratropium-albuteroL (DUONEB) 0.5 mg-3 mg(2.5 mg base)/3 mL nebulizer solution 3 mL Acute respiratory failure with hypoxia and hypercapnia ([facility]) Past Medical History: Diagnosis Date Agoraphobia Angina at rest Anxiety BiPAP (biphasic positive airway pressure) dependence Patient states she no longer uses a BIPAP 01/28/23 Bipolar disorder ([facility]) Breast injury CHF (congestive heart failure) ([facility]) Chipped tooth COPD (chronic obstructive pulmonary disease) ([facility]) Coronary artery disease Dementia ([facility]) Depression GERD (gastroesophageal reflux disease) History of coronary artery bypass graft 08/14/2020 Liver disease Low back pain Myocardial infarction ([facility]) Apr 2009, swith stent placement Obesity BONY treated with BiPAP 07/31/2022 Osteoarthritis Panic disorder PTSD (post-traumatic stress disorder) Sleep apnea Visual impairment glasses Past Surgical History: Procedure Laterality Date BREAST BIOPSY BREAST CYST EXCISION Cardiac catheterization N/A 01/09/2020 Performed by Yefri Khan MD at [facility] Cardiac catheterization-LV Cors N/A 08/06/2020 Performed by Hazel Painting MD at [facility] SECTION CHOLECYSTECTOMY COLONOSCOPY N/A 04/03/2017 Performed by Jose Beaver MD at [facility] Coronary angiogram and left ventricular gram/pressure N/A 01/09/2020 Performed by Yefri Khan MD at [facility] CORONARY ANGIOPLASTY WITH STENT PLACEMENT CORONARY ARTERY BYPASS GRAFT X4/ THOMPSON/ SVG X3 / RIGHT UPPER LEG OPEN VEIN HARVEST/ LEFT UPPER LEG OPEN VEING HARVEST /GINETTE N/A 08/13/2020 Performed by Leroy Meng MD at [facility] Drug eluting stent left anterior descending N/A 01/09/2020 Performed by Yefri Khan MD at [facility] EXCISION SEROMA LOWER EXTREMITY Left 10/07/2022 Performed by Victor Hugo Vincent DO at [facility] Intravascular ultrasound coronary N/A 08/06/2020 Performed by Hazel Painting MD at [facility] Intravascular ultrasound coronary N/A 01/09/2020 Performed by Yefri Khan MD at [facility] NOTCHARGED/Thrombolysis arterial initial treatment N/A 01/09/2020 Performed by Yefri Khan MD at [facility] TONSILLECTOMY Travel Screening [...] at this time. There is no community services officer available in the ED, so will workon [...] Clinical Impressions as of 07/25/231926 COPD exacerbation ([facility]) Acute respiratory failure with hypoxia and hypercapnia ([facility]) Hypoxia MDM Medical Decision Making Heena Bob ([facility]) documented for Dr. Lock. Chart Reviewed. Date: [...] signing this emergency patient record, the Emergency Physician/SUPPLY AND DISTRIBUTION MANAGER/PA-C attests that all entries made into the electronic medical record by arianna John prior to the Physician/SUPPLY AND DISTRIBUTION MANAGER/PA-C signature reflect an accurate accounting of the evaluation and care rendered by that Emergency Physician/SUPPLY AND DISTRIBUTION MANAGER/PA-C. The Emergency Physician/SUPPLY AND DISTRIBUTION MANAGER/PA-C assumes full responsibility for those entries. The Emergency Physician/SUPPLY AND DISTRIBUTION MANAGER/PA-C also attests that any patient testing or treatment that was instituted by nursing staff in accordance to Emergency Department Preemptive Guidelines have been reviewed and unless so stated elsewhere in this patient chart, the Physician/SUPPLY AND DISTRIBUTION MANAGER/PA-C agrees with the testing and care provided. [...] on room air 85% documented in this encounterAs[facility] Emergency department Triage note* Jade Alvarez RN - 07/25/2023 4:31 PM EDT Patient presents with complaints of difficulty breathing x's 1 week. Patient states she was seen inthe ER yesterday and diagnosed with Right Lower Lobe pneumonia. SpO2 on room air 85% [facility]03-06-2024 History of Present illness Narrative* Rajni [...] strengthening. 2. Stage 3a chronic kidney disease ([facility]) -recent GFR 45 -again is on multiple [...] Chronic heart failure with preserved ejection fraction ([facility]) -GDMT currently includes beta-georgi, SGLT 2 agent, [...] Exam Vitals reviewed. Exam conducted with a sales order specialist present (Friend/POA). Constitutional: General: She is not [...] THE MORNING, Disp: 90 tablet, Rfl: 3 oijjdkiipx-fefjytgt-qedgxldjfw (BREZTRI AEROSPHERE) 160-9-4.8 mcg/actuation HFA aerosol inhaler, [...] measurable pneumothorax. Right costophrenic angle excluded from [id number]-vpzo. Impression: 1. Persistent effusions, with or without [...] on 04/13/2023 1:48 PM Rajni Steiner DO., [facility] Office: [phone] documented in this encounterAshtabula [facility]02[facility] Miscellaneous Notes* Telephone Encounter - Heena Mendoza - 06/25/2023 2:20 PM EST Order received Scheduled SN at [facility] on 08/11/23 Confirmation emailed [facility] Medicare Dual Complete Medicaid [place] SN Order and 06/25/23 Stephanie Wilson Notes Quick transition to BIPAP- WITH TCO2 monitoring documented in this encounterAshtabula [facility]02-[facility] Telephone encounter Note* Telephone Encounter - Heena Mendoza - 06/25/2023 2:20 PM EST Order received Scheduled SN at [facility] on 08/11/23 Confirmation emailed [facility] Medicare Dual Complete Medicaid [place] SN Order and 06/25/23 Stephanie Meadows Epic Notes Quick transition to BIPAP- WITH TCO2 monitoring [employer]02-29-2024 History of Present illness Narrative* Grace Meadows, DO - 06/25/2023 10:00 AM EST Images from the original note were not included. [facility] Progress Note Patient - [...] but also refused. She was admitted to [facility] ICU and seen by Pulmonary there. [...] assess for acuity. Dr. Grace Meadows DO. [facility] Office: [phone] documented in this encounterAshtabula [facility]02-29-[facility]24 Miscellaneous Notes* Telephone Encounter - Bipin Allen - 06/25/2023 9:54 AM EST Pt called in to inform that her battery but she is getting it jumped now, she stated that she will still make it to her 10am appt today w/SE Pls advise pt documented in this encounterAshtabula [facility]02-[facility] Telephone encounter Note* Telephone Encounter - Bipin Allen - 06/25/2023 9:54 AM EST Pt called in to inform that her battery but she is getting it jumped now, she stated that she will still make it to her 10am appt today w/SE Pls advise pt [facility]02-05-[facility] History of Present illness Narrative* Rajni [...] history. Most recently had prolonged hospitalization at [facility] due to severe pneumonia, and was on [...] Exam Vitals reviewed. Exam conducted with a sales order specialist present (Friend/POA). Constitutional: General: She is not [...] Chronic heart failure with preserved ejection fraction ([facility]) - Basic Metabolic Panel; Future - CBC auto differential; Future - TSH with Reflex; Future - reviewed the notes from the recent admission to the. -medication had been changed. Repeat lab as above, and adjust medications as needed to maintain heart failure control without dehydration and kidney injury. Bipolar disorder in partial remission, most recent episode unspecified type ([facility]) -patient with longstanding mental health issues including [...] all these medications. 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 ([facility]) -previous CABG -currently aspirin 81 mg daily, atorvastatin and beta-georgi in the form of propanolol [place] -no changes in current regimen BMI 40.0-44.9, adult ([facility]) .- Patient extremely overweight -reviewed need to [...] of medications as above documented in this encounterBrattleboro Memorial HospitalCollegeFanz [id number] Miscellaneous Notes* Telephone Encounter - Maryellen GLORIA Huertas - 05/18/2023 12:35 PM EST Patient called and stated that she was recently discharged from [facility] on 05/15/2023.Patient stated that she was in the hospital from 04/13/2023 - 04/29/2023, which she was then placedat [place] due to being on a ventilator. Patient [...] GLORIA Scott - 05/18/2023 12:35 PM EST Area Forester contacted patient and informed her of medication [...] will go to ED. documented in this encounterOhioHealth Nelsonville Health CenterSeekPanda Formerly [facility] Heritage [id number] Telephone encounter Note* Telephone Encounter - GLORIA Scott - 05/18/2023 12:35 PM EST Patient called and stated that she was recently discharged from [facility] on 05/15/2023.Patient stated that she was in the hospital from 04/13/2023 - 04/29/2023, which she was then placedat [place] due to being on a ventilator. Patient [...] with BMI 39 Please review and advise. [employer]01-22-2024 Telephone encounter Note* Telephone Encounter - Grace Meadows DO - 05/18/2023 12:35 PM EST Rx sent for doxycycline x 10 days. Needs appt in clinic in May [email or web address] [id number] Telephone encounter Note* Telephone Encounter - GLORIA Scott - 05/18/2023 12:35 PM EST Area Forester contacted patient and informed her of medication [...] stated that she will go to ED. [facility]08-17-2023 Evaluation note* Encounter Date Diagnosis [...] patient is severely deconditioned I had her osteopathic medicine teacher my office for at least 10 minutes [...] unspecified whether sciatica present (ICD-10 - M54.50) [employer] (T/A) Other evaluation noteNo assessment information available [facility] Work Phone: Evaluation note* Diagnosis Left shoulder pain, unspecified chronicity- Primary Arthritis of left shoulder region documented in this encounter [facility] HealthcareEvaluation note* Diagnosis Trigger point of left side of body- Primary Arthritis of left sacroiliac joint (CMS/HCC) Lumbosacral pain Pain of left sacroiliac joint documented in this encounter [facility] HealthcareEvaluation note* Diagnosis Chronic obstructive pulmonary disease, unspecified COPD type (CMS/HCC)- Primary Chronic respiratory failure with hypoxia and hypercapnia (CMS/HCC) Cigarette smoker Tobacco use disorder documented in this encounter [facility] HealthcareEvaluation note* Diagnosis Trigger point of left side of body- Primary documented in this encounter [facility] HealthcareEvaluation note* Diagnosis Trigger point of left side of body- Primary Compression fracture of T6 vertebra with routine healing, subsequent encounter Compression fracture of T8 vertebra with routine healing, subsequent encounter Osteoporotic compression fracture of vertebra with routine healing, subsequent encounter [facility] Diagnosis Atherosclerosis of lime coronary artery of lime heart without angina pectoris Hx of hyperlipidemia [facility]* Diagnosis Peripheral polyneuropathy documented in this encounter [facility]* Diagnosis BONY (obstructive sleep apnea)- Primary Obstructive sleep apnea (adult) (pediatric) Hypoxemia associated with sleep documented in this encounter [facility]* Diagnosis Closed wedge compression fracture of T6 vertebra with routine healing- Primary Acute pulmonary embolism without acute cor pulmonale, unspecified pulmonary embolism type ([facility]) Venous insufficiency of both lower extremities Chronic respiratory failure with hypoxia and hypercapnia ([facility]) Chronic heart failure with preserved ejection fraction ([facility]) Spinal stenosis of lumbar region with neurogenic claudication Peripheral polyneuropathy B12 deficiency documented [facility] Diagnosis Chronic heart failure with preserved ejection fraction ([facility]) Atherosclerosis of lime coronary artery of lime heart without angina pectoris documented in this [facility] Diagnosis Closed wedge compression fracture of T6 vertebra with routine healing documented [facility] this [facility] Diagnosis Closed wedge compression fracture of T6 vertebra with routine healing- Primary Acute pulmonary embolism without acute cor pulmonale, unspecified pulmonary embolism type ([facility]) Spinal stenosis of lumbar region with neurogenic claudication documented in this encounter [facility]* Diagnosis Gastro-esophageal reflux disease without esophagitis documented in this encounter [facility] Diagnosis Spinal stenosis of lumbar region with neurogenic claudication- Primary documented in this encounter [facility]* Diagnosis Closed wedge compression fracture of T6 vertebra with routine healing documented in this encounter [facility]* Diagnosis Chronic heart failure with preserved ejection fraction ([facility])- Primary Bipolar disorder in partial remission, most recent episode unspecified type ([facility]) 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 ([facility]) BMI 40.0-44.9, adult ([facility]) BONY treated with BiPAP documented [facility] this encounter [facility]* Diagnosis Flu-like symptoms- Primary Community acquired pneumonia, unspecified laterality Chronic heart failure with preserved ejection fraction (CMS-HCC) Community acquired pneumonia, unspecified laterality Chronic heart failure with preserved ejection fraction ([facility]) documented in this encounter [facility]* Diagnosis Shortness of breath Chronic heart failure with preserved ejection fraction ([facility]) documented in this encounter [facility]* Diagnosis BONY treated with BiPAP- Primary Chronic obstructive pulmonary disease, unspecified COPD type ([facility]) Shortness of breath Cigarette nicotine dependence in remission documented in this encounter [facility]* Diagnosis Venous insufficiency of both lower extremities- Primary Chronic heart failure with preserved ejection fraction ([facility]) Acute pulmonary embolism without acute cor pulmonale, unspecified pulmonary embolism type ([facility]) B12 deficiency documented in this encounter [facility]* Diagnosis Fibromyalgia syndrome Unspecified myalgia and myositis documented in this encounter [facility]* Diagnosis Fibromyalgia syndrome- Primary Unspecified myalgia and myositis Stage 3a chronic kidney disease ([facility]) BONY treated with BiPAP Chronic heart failure with preserved ejection fraction ([facility]) Obesity (BMI 30-39.9) documented in this encounter [facility]* Diagnosis Chronic respiratory failure with hypoxia and hypercapnia (CMS-HCC)- Primary COPD exacerbation ([facility]) Obstructive chronic bronchitis with exacerbation Acute respiratory failure with hypoxia and hypercapnia ([facility]) Hypoxia Hypoxemia Chronic respiratory failure with hypoxia and hypercapnia ([facility]) Bipolar 2 disorder, major depressive episode ([facility]) Essential hypertension Unspecified essential hypertension 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 ([facility]) documented in this encounter [facility]* Diagnosis Unilateral groin pain, right- Primary Spinal stenosis of lumbar region with neurogenic claudication Chronic respiratory failure with hypoxia and hypercapnia ([facility]) Chronic heart failure with preserved ejection fraction ([facility]) BONY treated with BiPAP Bipolar disorder in partial remission, most recent episode unspecified type ([facility]) documented in this encounter [facility]* Diagnosis BONY treated with BiPAP documented in this encounter [facility]* Diagnosis Spinal stenosis of lumbar region with neurogenic claudication documented in this encounter [facility]* Diagnosis Chronic respiratory failure with hypoxia and hypercapnia (CMS-HCC)- Primary BONY treated with BiPAP Spinal stenosis of lumbar region with neurogenic claudication Chronic heart failure with preserved ejection fraction (CMS[facility]HCC) documented in this encounter [facility]* Diagnosis Chronic heart failure with preserved ejection fraction (CMS-HCC) documented in this encounter [facility]* Diagnosis Spinal stenosis of lumbar region with neurogenic claudication documented in this encounter [facility]* Diagnosis Chronic heart failure with preserved ejection fraction (CMS[facility]HCC) documented in this encounter [facility]* Diagnosis Chronic heart failure with preserved ejection fraction (CMS-HCC) documented in this encounter [facility]* Diagnosis 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 ([facility])- Primary documented in this encounter [facility]* Diagnosis IFG (impaired fasting glucose)- Primary Peripheral polyneuropathy Stage 3a chronic kidney disease ([facility]) Chronic heart failure with preserved ejection fraction ([facility]) 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 ([facility]) documented in this encounter [facility]* Diagnosis Gastro-esophageal reflux disease without esophagitis documented in this encounter [facility]* Diagnosis Contusion of lower leg, unspecified laterality, initial encounter- Primary documented in this encounter [facility]* Diagnosis IFG (impaired fasting glucose)- Primary Chronic obstructive pulmonary disease, unspecified COPD type ([facility]) Stage 3a chronic kidney disease ([facility]) Chronic respiratory failure with hypoxia and hypercapnia ([facility]) Chronic heart failure with preserved ejection fraction ([facility]) Bipolar 2 disorder, major depressive episode ([facility]) BMI 40.0-44.9, adult ([facility]) 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 ([facility]) B12 deficiency Peripheral polyneuropathy Arthritis of left sacroiliac joint ([facility]) documented in this encounter [facility]* Diagnosis Chronic heart failure with preserved ejection fraction ([facility]) Atherosclerosis of lime coronary artery of lime heart without angina pectoris documented in this encounter [facility]* Diagnosis Gastro-esophageal reflux disease without esophagitis documented in this encounter [facility]* Diagnosis Chronic heart failure with preserved ejection fraction (CMS-HCC)- Primary 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 Hx of CABG Postsurgical aortocoronary bypass status documented in this encounter [facility]* Diagnosis Chronic obstructive pulmonary disease, unspecified COPD type ([facility])- Primary Chronic respiratory failure with hypoxia and hypercapnia ([facility]) BONY (obstructive sleep apnea) Obstructive sleep apnea (adult) (pediatric) [facility] Cervicogenic headache- Primary Headache Orthostatic hypotension Chronic heart failure with preserved ejection fraction ([facility]) Fibromyalgia syndrome Unspecified myalgia and myositis documented in this encounter [facility]* Diagnosis Peripheral polyneuropathy Cervicogenic headache Headache documented in this encounter [facility]* Diagnosis Peripheral polyneuropathy documented in this encounter [facility]* Diagnosis Chronic heart failure with preserved ejection fraction (CMS-HCC)- Primary Pulmonary hypertension ([facility]) Other chronic pulmonary heart diseases Nonrheumatic tricuspid valve regurgitation Essential hypertension Unspecified essential hypertension Atherosclerosis of lime coronary artery of lime heart without angina pectoris History of four vessel coronary artery bypass graft NSTEMI (non-ST elevated myocardial infarction) ([facility]) Acute myocardial infarction, subendocardial infarction, episode of care unspecified documented in this encounter [facility]* Diagnosis Chronic heart failure with preserved ejection fraction ([facility])- Primary Essential hypertension Unspecified essential hypertension Pulmonary hypertension ([facility]) Other chronic pulmonary heart diseases Nonrheumatic tricuspid valve regurgitation Atherosclerosis of lime coronary artery of lime heart without angina pectoris History of four vessel coronary artery bypass graft documented in this encounter [facility]* Diagnosis Microcytic anemia- Primary Unspecified iron deficiency anemia Gastro-esophageal reflux disease without esophagitis Stage 3a chronic kidney disease ([facility]) Spinal stenosis of lumbar region with neurogenic claudication documented in this encounter [facility]* Diagnosis 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 documented in this encounter [facility]* Diagnosis Chronic diastolic heart failure (CMS-HCC)- Primary Chronic diastolic heart failure Pulmonary hypertension ([facility]HCC) Other chronic pulmonary heart diseases Nonrheumatic tricuspid valve regurgitation [facility] Diagnosis Chronic heart failure with preserved ejection fraction (CMS[facility]HCC)- Primary [facility] Diagnosis Chronic diastolic heart failure (CMS-HCC)- Primary Chronic diastolic heart failure [facility]* Diagnosis Gastro-esophageal reflux disease without esophagitis [facility] Diagnosis Chronic heart failure with preserved ejection fraction ([facility]-HCC) Atherosclerosis of lime coronary artery of lime heart without angina pectoris [facility] N[facility]ative - Reported* Type Description Date Medical History alcoholism Medical HistoryArthritisMedical HistoryemphysemaMedical Historygall bladder diseaseMedical Historyheart diseaseMedical Historyhigh cholesterolMedical Historymigraine headachesMedical HistoryobesityMedical HistorypneumoniaMedical Historypsychiatric disorderMedical Historychronic depressionMedical History anxietySurgical HistoryC sectionSurgical HistorytonsillectomySurgical History gall bladderSurgical Historybreast lump removed [id number] Historyopen heart surgeryHospitalization Historysee above surg. hx. Beddit Other Hospital Discharge instructionsNot on filedocumented in [...] be sent through Care Everywhere. * Esophagitis (Scottish) * Patellar Tendinopathy ([place]) [facility]Not on [...] December 3:14pm TypeDate RecordedPatient RepresentativeExplanationDurable Power of Eye Dropper Assembler 05/15/2023 8:14 AMLiving Will12/19/2021 11:54 AMLIVING WILLLiving Will11/22/2021 1:59 PMDurable Power of Attorney11/22/2021 1:58 PMDate ActivatedDate Inactivated Comments08/28/2023 4:38 AM08/29/2023 11:50 AMDate ActivatedDate InactivatedComments 08/28/2023 4:09 AM08/28/2023 4:38 AMDate ActivatedDate InactivatedComments07/25/2023 9:03 PM07/27/2023 4:44 PMDate ActivatedDate InactivatedComments05/28/2023 1:53 AM 05/28/2023 12:27 PMDate ActivatedDate YqvypkwcwiqHtidnjia99/19/2023 10:09 PM 04/29/2023 6:44 PMDate ActivatedDate InactivatedComments07/25/2023 9:03 PM07/27/2023 4:44 PMDate ActivatedDate InactivatedComments05/28/2023 1:53 AM05/28/2023 12:27 PM Date ActivatedDate ZusryxqlkbaGjojdzcq60/19/2023 10:09 PM04/29/2023 6:44 PMDate ActivatedDate InactivatedComments08/06/2020 11:59 AM08/23/2020 3:53 PMDate ActivatedDate InactivatedComments08/06/2020 11:59 AM08/06/2020 11:59 AMTypeDate RecordedPatient RepresentativeExplanationDurable Power of Attorney05/15/2023 8:14 AMLiving Will12/19/2021 11:54 AMLIVING WILLLiving Will11/22/2021 1:59 PMDurable Power of Attorney11/22/2021 1:58 PMDate ActivatedDate InactivatedComments 07/25/2023 9:03 PM07/27/2023 4:44 PMDate ActivatedDate InactivatedComments05/28/2023 1:53 AM05/28/2023 12:27 PMDate ActivatedDate MixteggnfheKfbqaoyz81/19/2023 10:09 PM04/29/2023 6:44 PMDate ActivatedDate InactivatedComments08/06/2020 11:59 [...] ActivatedDate InactivatedComments05/28/2023 1:53 AM05/28/2023 12:27 PMDate ActivatedDate RnnfpytpvkiSmtebitt97/19/2023 10:09 PM04/29/2023 6:44 PMCode StatusDate Activated Date [...] care provider Rajni Steiner, DO [address] [place] [address] Referral IDStatusReasonStart DateExpiration DateVisits RequestedVisits [id number] Review/[id number] / ProceduresReferred By ContactReferred To Contact Procedures Adult diet Rajni Steiner, DO [address] [place] [address] Referral IDStatusReasonStart DateExpiration DateVisits RequestedVisits [id number] Review/[id number] / ProceduresReferred By ContactReferred To [facility] Diagnoses Chronic heart failure with preserved ejection fraction ([facility]) Rajni Steiner, DO [address] [place] [address] [facility] [id number] [place] [address] Phone: [phone] Fax: [phone] Referral IDStatusReasonStart DateExpiration DateVisits RequestedVisits [id number] Review Patient Preference /[id number] / ProceduresReferred By ContactReferred To Contact Diagnoses BONY treated with BiPAP Procedures Split Night Sleep Study Grace Meadows DO [address] [address] Referral IDStatusReasonStart DateExpiration DateVisits RequestedVisits [id number] Review/[id number] / ProceduresReferred By ContactReferred To Contact Diagnoses BONY (obstructive sleep apnea) Hypoxemia associated with sleep Procedures Polysomnography 4 or more parameters with PAP titration Grace Meadows DO [address] [facility] [address] [place] [address] Referral IDStatusReasonStart DateExpiration DateVisits RequestedVisits [id number] Review/[id number] / ProceduresReferred By ContactReferred To Contact Diagnoses Trigger point of left side of body Procedures Trigger Point Injection ([place] [address] [place] [address]): left gluteus tej [facility] [address] [facility] [address] [place] [address] Referral IDStatusReasonStart DateExpiration DateVisits RequestedVisits [id number]/3/20243/[id number] / Procedures Referred By ContactReferred To ContactOrthopaedic Surgery Diagnoses Left shoulder pain, unspecified chronicity Procedures L Inj/Asp: L subacromial bursa Eusebia Huertas, DO [address] [facility] [address] [place] [address] Referral IDStatusReasonStart DateExpiration DateVisits RequestedVisits [id number]/1/20243/ Additional Source Comments INFORMATION SOURCE (unrecogn ized section and content) DATE CREATED AUTHOR 02/03/2018 [facility] DATE CREATED AUTHOR AUTHOR'S ORGANIZ ATION 12/21/2022 [facility] DATE CREATED AUTHOR AUTHOR'S ORGANIZ ATION 05/03/2023 [facility] DATE CREATED AUTHOR AUTHOR'S ORGANIZ ATION 07/10/2024 [facility] DATE CREATED AUTHOR AUTHOR'S ORGANIZ ATION 09/24/2024 [facility] DATE CREATED AUTHOR AUTHOR'S ORGANIZ ATION 12/17/2024 [facility] DATE CREATED AUTHOR AUTHOR'S ORGANIZ ATION 02/18/2025 [facility] DATE CREATED AUTHOR AUTHOR'S ORGANIZ ATION 02/24/2025 [facility] Care Teams (unrecognized sec tion and content) Team Status: Active Member Role Status Dates Saqib Fowler PA-C Primary Care Provider Activ e Team Status: Inactive Member Role Status Dates Saqib Fowler PA-C Primary Care Provider Activ e [facility] ProviderActiveTeam MemberRelationshipSpecialtyStart DateEnd Date Rajni Steiner MD [address] [place] [address] PCP - GeneralInternal Medicine08/11/23Team MemberRelationshipSpecialtyStart Date End Date Rajni Steiner MD [address] [place] [address] PCP - GeneralInternal Medicine08/11/23Team MemberRelationshipSpecialtyStart Date End Date Rajni Steiner MD [address] [place] [address] PCP - GeneralInternal Medicine08/11/23Team MemberRelationshipSpecialtyStart Date End Date Rajni Steiner MD [address] [place] [address] PCP - GeneralInternal Medicine08/11/23Team MemberRelationshipSpecialtyStart Date End Date Rajni Steiner MD [address] [place] [address] PCP - GeneralInternal Medicine08/11/23Team MemberRelationshipSpecialtyStart Date End Date Rajni Steiner MD [address] [place] [address] PCP - GeneralInternal Medicine08/11/23Team MemberRelationshipSpecialtyStart Date End Date Rajni Steiner MD [address] [place] [address] PCP - GeneralInternal Medicine08/11/23Team MemberRelationshipSpecialtyStart Date End Date Rajni Steiner MD [address] [place] [address] PCP - GeneralInternal Medicine08/11/23Team MemberRelationshipSpecialtyStart Date End Date Rajni Steiner MD [address] [place] [address] PCP - GeneralInternal Medicine08/11/23Team MemberRelationshipSpecialtyStart Date End Date Rajni Steiner DO [address] [place] [address] PCP - GeneralInternal Medicine12/17/23Team MemberRelationshipSpecialtyStart Date End Date Rajni Steiner DO [address] [place] [address] PCP - GeneralInternal Medicine12/17/23Team MemberRelationshipSpecialtyStart Date End Date Rajni Steiner DO [address] [place] [address] PCP - GeneralInternal Medicine07/01/23Team MemberRelationshipSpecialtyStart Date End Date Rajni Steiner DO [address] [place] [address] PCP - GeneralInternal Medicine07/01/23Team MemberRelationshipSpecialtyStart Date End Date Rajni Steiner DO [address] [place] [address] PCP - GeneralInternal Medicine07/01/23Team MemberRelationshipSpecialtyStart Date End Date Rajni Steiner DO [address] [place] [address] PCP - GeneralInternal Medicine07/01/23Team MemberRelationshipSpecialtyStart Date End Date Vickyumair Rajni DO Janae [address] [place] [address] PCP - GeneralInternal Medicine08/24/23Team MemberRelationshipSpecialtyStart Date End Date Vickyumair Rajni Janae DO [address] [place] [address] PCP - GeneralInternal Medicine08/24/23Team MemberRelationshipSpecialtyStart Date End Date Vickyumair Rajni DO Janae [address] [place] [address] PCP - GeneralInternal Medicine08/24/23Team MemberRelationshipSpecialtyStart Date End Date No Pcp, [place] [address] PCP - GeneralFamily Vukjuzrf31/18/23Team MemberRelationshipSpecialtyStart Date End Date No Pcp, [place] [address] PCP - GeneralFamily Zulpexrv66/18/23Team MemberRelationshipSpecialtyStart Date End Date Rajni Steiner DO [address] [place] [address] PCP - GeneralInternal Medicine08/24/23Team MemberRelationshipSpecialtyStart Date End Date Rajni Steiner DO [address] [place] [address] PCP - GeneralInternal Medicine08/24/23Team MemberRelationshipSpecialtyStart Date End Date Rajni Steiner DO [address] [place] [address] PCP - GeneralInternal Medicine08/24/23Team MemberRelationshipSpecialtyStart Date End Date Rajni Steiner DO [address] [place] [address] PCP - GeneralInternal Medicine08/24/23Team MemberRelationshipSpecialtyStart Date End Date No Pcp, [place] [address] PCP - GeneralFamily Eftwppjq81/18/23Team MemberRelationshipSpecialtyStart Date End Date Rajni Steiner DO [address] [place] [address] PCP - GeneralInternal Medicine08/24/23Team MemberRelationshipSpecialtyStart Date End Date Rajni Steiner DO [address] [place] [address] PCP - GeneralInternal Medicine08/24/23Team MemberRelationshipSpecialtyStart Date End Date No Pcp, [place] [address] PCP - GeneralFamily Rgcknvff72/18/23Team MemberRelationshipSpecialtyStart Date End Date No Pcp, [place] [address] PCP - GeneralFamily Sdluwsmb95/18/23Team MemberRelationshipSpecialtyStart Date End Date Rajni Steiner DO [address] [place] [address] PCP - GeneralInternal Medicine08/24/23Team MemberRelationshipSpecialtyStart Date End Date No Pcp, [place] [address] PCP - GeneralFamily Xkttwvvv30/18/23Team MemberRelationshipSpecialtyStart Date End Date Rajni Steiner DO [address] [place] [address] PCP - GeneralInternal Medicine07/01/23Team MemberRelationshipSpecialtyStart Date End Date Rajni Steiner DO [address] [place] [address] PCP - GeneralInternal Medicine07/01/23Team MemberRelationshipSpecialtyStart Date End Date Rajni Steiner DO [address] [place] [address] PCP - GeneralInternal Medicine08/24/23Team MemberRelationshipSpecialtyStart Date End Date Rajni Steiner DO [address] [place] [address] PCP - GeneralInternal Medicine08/24/23Team MemberRelationshipSpecialtyStart Date End Date Rajni Steiner DO [address] [place] [address] PCP - GeneralInternal Medicine07/01/23Team MemberRelationshipSpecialtyStart Date End Date Rajni Steiner Janae DO [address] [place] [address] PCP - GeneralInternal Medicine07/01/23Team MemberRelationshipSpecialtyStart Date End Date Rajni Steiner DO [address] [place] [address] PCP - GeneralInternal Medicine12/17/23Team MemberRelationshipSpecialtyStart Date End Date Rajni Steiner DO [address] [place] [address] PCP - GeneralInternal Medicine12/17/23Team MemberRelationshipSpecialtyStart Date End Date Rajni Steiner, DO [address] [place] [address] PCP - GeneralInternal Medicine07/01/23Team MemberRelationshipSpecialtyStart Date End Date Rajni Steiner, DO [address] [place] [address] PCP - GeneralInternal Medicine12/17/23Team MemberRelationshipSpecialtyStart Date End Date Rajni Steiner, DO [address] [place] [address] PCP - GeneralInternal Medicine12/17/23Team MemberRelationshipSpecialtyStart Date End Date Rajni Steiner, DO [address] [place] [address] PCP - GeneralInternal Medicine12/17/23Team MemberRelationshipSpecialtyStart Date End Date Rajni Steiner DO [address] [place] [address] PCP - GeneralInternal Medicine12/17/23Team MemberRelationshipSpecialtyStart Date End Date Rajni Steiner DO [address] [place] [address] PCP - GeneralInternal Medicine12/17/23Team MemberRelationshipSpecialtyStart Date End Date Rajni Steiner DO [address] [place] [address] PCP - GeneralInternal Medicine12/17/23Team MemberRelationshipSpecialtyStart Date End Date Rajni Steiner DO [address] [place] [address] PCP - GeneralInternal Medicine12/17/23Team MemberRelationshipSpecialtyStart Date End Date Rajni Steiner, DO [address] [place] [address] PCP - GeneralInternal Medicine12/17/23Team MemberRelationshipSpecialtyStart Date End Date Rajni Steiner, DO [address] [place] [address] PCP - GeneralInternal Medicine12/17/23Team MemberRelationshipSpecialtyStart Date End Date Rajni Steiner MD PCP - GeneralInternal Medicine08/11/23Team MemberRelationshipSpecialtyStart Date End Date Rajni Steiner MD PCP - GeneralInternal Medicine08/11/23Team MemberRelationshipSpecialtyStart Date End Date Rajni Steiner DO [address] [place] [address] PCP - GeneralInternal Medicine12/17/23Team MemberRelationshipSpecialtyStart Date End Date Rajni Steiner DO [address] [place] [address] PCP - GeneralInternal Medicine12/17/23Team MemberRelationshipSpecialtyStart Date End Date Rajni Steiner DO [address] [place] [address] PCP - GeneralInternal Medicine12/17/23Team MemberRelationshipSpecialtyStart Date End Date Rajni Steiner DO [address] [place] [address] PCP - GeneralInternal Medicine12/17/23Team MemberRelationshipSpecialtyStart Date End Date Rajni Steiner DO [address] [place] [address] PCP - GeneralInternal Medicine12/17/23Team MemberRelationshipSpecialtyStart Date End Date Rajni Steiner DO [address] [place] [address] PCP - GeneralInternal Medicine12/17/23Team MemberRelationshipSpecialtyStart Date End Date Rajni Steiner MD PCP - GeneralInternal Medicine08/11/23Team MemberRelationshipSpecialtyStart Date End Date Rajni Steiner DO [address] [place] [address] PCP - GeneralInternal Medicine12/17/23Team MemberRelationshipSpecialtyStart Date End Date Rajni Steiner DO [address] [place] [address] PCP - GeneralInternal Medicine12/17/23Team MemberRelationshipSpecialtyStart Date End Date Rajni Steiner DO [address] [place] [address] PCP - GeneralInternal Medicine12/17/23Team MemberRelationshipSpecialtyStart Date End Date Rajni Steiner DO [address] [place] [address] PCP - GeneralInternal Medicine12/17/23Team MemberRelationshipSpecialtyStart Date End Date Rajni Steiner DO [address] [place] [address] PCP - GeneralInternal Medicine12/17/23 Goals (unrecognized section and content) Goals may be documented in a n alternate sectionNo Information REASON FOR VISIT (unrecogniz ed section and content) ReasonCommentsPainReasonCommentsChronic hypoxic respiratory failureConsultation ReasonCommentsFollow-upReasonOnset DateCommentsMed Npekte254Reason CommentsMed RefillReasonOnset DateCommentsMed Orrwbx634ReasonOnset Date CommentsSleep Lab4Pap OrderReasonCommentscompression fractor and leakage in legsReasonOnset DateCommentsMed Pmxnvl963701JiiwybFraytfzu9 month recheckReasonOnset DateCommentsMed Wrgxbn414ReasonCommentsNew Patient ReasonCommentsCoughCongestion,cough yellow, 1 weekReasonCommentsHospital Follow-upCOVID Pneumonia - Early AprilXR: 04/28/2023 and 05/27/2023 ReasonOnset DateCommentsSleep Lab06/25/2023Split NightReasonCommentsFollow-up1 monthReasonCommentsHyperlipidemiaHypertensionReasonCommentsShortness of Breath SpecialtyDiagnoses / ProceduresReferred By ContactReferred To Contact Diagnoses Shortness of breath Hypoxia COPD exacerbation (CMS-HCC) Acute respiratory failure with hypoxia and hypercapnia (CMS-HCC) Rajni Gimenez MD [address] [place] [address], [address] [place] [address] Referral IDStatusReasonStart DateExpiration DateVisits RequestedVisits [id number] / ProceduresReferred By ContactReferred To Contact Diagnoses BONY (obstructive sleep apnea) Hypoxemia associated with sleep Procedures Polysomnography 4 or more parameters [place] [address] [place] [address] Referral IDStatusReasonStart DateExpiration DateVisits RequestedVisits [id number]/19/20244/562262ZxyjugYqgyaiiakcdtqmvfjp care SpecialtyDiagnoses / ProceduresReferred By ContactReferred To Contact Diagnoses BONY treated with BiPAP Procedures Split Night Sleep Study Grace Meadows, DO [address] [place] [address] Referral IDStatusReasonStart DateExpiration DateVisits RequestedVisits [id number]hd HyperlipidemiaReasonOnset DateCommentsMed Gmkzsc694ReasonOnset Date CommentsMed Zshesv034ReasonCommentsMed Change RequestReasonComments Follow-upEST PT F/U 4 MS L/S RDGReasonCommentsCOPDReasonCommentsControlled SubstanceReasonOnset DateCommentsMed Bmngvs8407/15/2024ReasonCommentsFollow-upEST PT F/U 6 MS L/S TMPReasonCommentsSleep Apnea6 [...] Chiang RN) * 2140 (Given - Provider: Mayr Cee RN) * 0818 (Given - Provider: [...] Bronchodilator 2020.pdf * 1933 (Given - Provider: Jaon Malone RCP) ipratropium-albuteroL (DUONEB) 0.5 mg-3 mg(2.5 [...] BE BASED ON THE PRIMARY CLINICAL RECORDS. [facility] provides no warranty or guarantee of the accuracy or completeness of information in this document.
[2025-03-17 15:57] LABS: Hematocrit 37.3 % (36.0-48.0); Hemoglobin 10.8 g/dL (12.0-16.0); Immature Granulocytes Abs Auto 0.02 10^3/uL (0.00-0.03); Immature Granulocytes Pct Auto 0.2 % (0.0-0.5); Lymphocytes Absolute Auto 2.3 10^3/uL (1.2-3.8); Mean Corpuscular HGB Conc 29.0 g/dL (29.9-35.2); Mean Corpuscular Hemoglobin 21.3 pg (26.7-34.0); Mean Corpuscular Volume 73.4 fL (81.0-99.0); Platelet Count 323 10^3/uL (150-450); Red Blood Count 5.08 10^6/uL (4.20-5.40); White Blood Count 8.7 10^3/uL (4.0-11.0)
[2025-03-17 16:00] LABS: Glucose Urine UA 100 mg/dL (NEGATIVE)
[2025-03-17 16:06] LABS: Amylase 94 U/L (25-115)
[2025-03-17 16:07] LABS: Crystals Seen? None Seen #/HPF (None Seen)
[2025-03-17 16:08] LABS: Cast Seen? NONE SEEN #/LPF (NONE SEEN); Urine Culture Indicated NO
[2025-03-17 16:11] LABS: Alanine Aminotransferase 35 U/L (14-59); Albumin Globulin Ratio 0.9; Albumin Level 3.5 g/dL (3.4-5.0); Alkaline Phosphatase 101 U/L (46-116); Anion Gap 11.0; Aspartate Amino Transferase 26 U/L (15-37); Blood Urea Nitrogen 21.0 mg/dL (7.0-18.0); Calcium 9.3 mg/dL (8.5-10.1); Carbon Dioxide 33.8 mmol/L (21.0-32.0); Chloride 100 mmol/L (98-107); Estimated GFR (African America 52 (>=60 mL/min/1.73m^2); Estimated GFR (Non-African Ame 43 (>=60 mL/min/1.73m^2); Globulin 3.8 g/dL; Glucose 104 mg/dL (74-106); Lipase 35.0 U/L (16.0-77.0); Potassium 3.8 mmol/L (3.5-5.1); Sodium 141 mmol/L (136-145); Total Protein 7.3 g/dL (6.4-8.2)
[2025-03-17 17:45] VITALS: BP 135/83; PULSE 73; O2SAT 98
== END 2025-03-17 17:45 | disposition home or self-care (01) ==
PROVIDERS: Emergency Provider Emergency Medicine; PCP Internal Medicine
DX: R10.9 Unspecified abdominal pain (principal); Z90.49 Acquired absence of other specified parts of digestive tract
CPT/HCPCS: 36415; 74177; 80048; 80076; 81001; 82150; 83690; 85025; 93005; 99285; Q9967

== ENCOUNTER 2025-03-27 09:30 | Day surgery (SDC) | payer MEDICARE, MEDICAID, SELFPAY ==
--- OUTSIDE RECORDS SUMMARY | 2025-03-15 13:30 | XMS_ITS | Encounter Summary ---
[facility] Organization [facility] [id number] [place] [address] Care Team Providers Care Tucking Machine Operator Name Role Phone Michael Steiner DO Primary Care Provider [phone] Reason for Visit * ReasonCommentsTCM Encounter Details DateTypeDepartmentCare Team (Latest Contact Info)Wqrfgpdofnl35/19/2025 1:30 PM ESTOffice Visit [facility] [address] [place] [address] Michael Steiner DO [address] [place] [address] Ulcer of esophagus with bleeding (Primary Dx); Gastro-esophageal reflux disease without esophagitis; Hiatal hernia with GERD; Spinal stenosis of lumbar region with neurogenic claudication Social History Tobacco UseTypesPacks/DayYears UsedDateSmoking Tobacco: AuwlnvZrswvapnlo186 09/1981 - mokeless Tobacco: Never Comments:5-6 cigerettes a da y Alcohol UseStandard Drinks/WeekCommentsNot Currently0 (1 standard drink = 0.6 oz pure alcohol)last use 15 years agoAHC UtilitiesAnswerDate RecordedIn the past 12 months has the electric, gas, oil, or water [employer] threatened to shut off services in your home?No12/04/2024Social Connection and Isolation PanelAnswer Date RecordedIn a typical week, how many times do you talk on the phone with family, friends, or neighbors?Three times a week07/25/2023How often do you get together with friends or relatives?Three times a week07/25/2023How often do you attend latter-day or cheondoism services?More than 4 times per year07/25/2023o you belong to any clubs or organizations such as latter-day groups, unions, fraternal [...] or more drinks on one occasion?Never07/25/2023HQ-2AnswerDate RecordedTotal Dutuk47205/15/2024Finmountain point medical center [place] of Occupational Health - Occupational Stress QuestionnaireAnswerDate RecordedDo you feel stress - tense, restless, nervous, or anxious, or unable to sleep at night because yourmind is troubled all the time - these days?Only a kjdomx4807/25/2023Exercise Vital Sign AnswerDate RecordedOn average, how many [...] part of a household?No03/14/2025hildcareAnswerDate RecordedDo problems getting children's attendant make 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 to work or study?No12/04/2024 EmploymentAnswerDate RecordedDo you need help finding a local career center and/or a training program?No12/04/2024Hunger ScreeningAnswerDate RecordedWithin the past 12 months we worried whether our food would run out before we got money to buy more.Patient Fynaavdz39/19/2025Within the past 12 months the food we bought just didn't last and we didn't have money to get more.Patient Declined 03/15/2025Purpose - LifeAnswerDate RecordedI have a purpose and direction in my life.Strongly Agree07/25/2023CommentsNoSex and Gender InformationValue Date RecordedSex Assigned at KeewlGoarrc99/10/2021 8:51 AM EDTLegal SexFemale 02/16/2017 2:26 PM EDTGender RqiqstymOlorrz24/10/2021 8:51 AM EDTSexual LzlbgcozgoqWyoyvmym45/02/2023 8:29 PM ESTdocumented as of this encounter Last Filed Vital Signs Vital SignReadingTime TakenCommentsBlood Olfcpmyw638/6403/15/2025 1:44 PM EST Bxasq635303/15/2025 1:44 PM PUALoyxnfubgix83.9 ??C (98.5 ??F)03/15/2025 1:44 PM ESTRespiratory Oudz795005/15/2024 1:44 PM ESTOxygen Smfqpiqgvo70%03/15/2025 1:44 PM ESTInhaled Oxygen Concentration--Gpvvec478.7 kg (237 lb 6.4 oz)03/15/2025 1:44 PM VPZHeeyts185.3 cm (5' 9.02 )03/15/2025 1:44 PM ESTBody Mass Index35.04 03/15/2025 1:44 PM ESTdocumented in this encounter Progress Notes * Michael Steiner DO - 03/15/2025 1:30 PM EST IM PROGRESS NOTE Patient - Monet Recinos Age - 64 [facility] 1960 [id number] ASSESSMENT & PLAN 1. Ulcer of esophagus [...] Vitals reviewed. Exam conducted with a senior product designer present (Friend/POA). Constitutional: General: She is not [...] in the morning., Disp: 90tablet, Rfl: 3 ioxfvcdwdu-ognbvgyr-kyzkaesuqh (BREZTRI AEROSPHERE) 160-9-4.8 mcg/actuation HFA aerosol inhaler, [...] the morning., Disp: 30 tablet, Rfl: 11 bwxweq-mahrpcxqy-xfy,al-simeth (FIRST-MOUTHWASH BLM) 82-953-070-40 mg/30mL mouthwash, Take 5 mL by mouth [...] 3 mL, 3 mL, intravenous, PRN, Michael Steiner, Lab Results Admission on 02/22/2025, Discharged on [...] 02/22/2025 Auto Resulted Final POC Urine Specific [place] 02/22/2025 1.010 1.010, 1.015, 1.020, 1.025 Final [...] Testing No results found. Michael Steiner DO., [facility] Physicians Office: [phone] documented in this encounter Plan of Treatment DateTypeDepartmentCare Team (Latest Contact Info)Xoyovneflou87/12/2025 7:45 AM ESTAppointment [facility] [address] [place] [address] documented as of this encounter Goals GoalPatient Goal TypeAssociated ProblemsRecent ProgressPatient-Stated?Author home GeneralYesHoman, Jimena, WEB PRODUCER Note: Evaluation of progress towards goal: feeling [...] DateEnd Date Michael Steiner DO [address] [place] [address] PCP - GeneralInternal Medicine12/17/23documented as of this encounter
--- OUTSIDE RECORDS SUMMARY | 2025-03-27 09:35 | XMS_ITS | Clinical Summary ---
Author Organization [facility] Healthcare Address [address] [place] [address] Care Team Providers Care Mushroom Farmer Name Role Phone Michael Steiner MD Primary Care Provider [phone] Allergies Active AllergyReactionsCriticalityNoted KnneSvkqgcokQugaauxxVjgkph43/21/2025 Other Reaction(s): Other (See Comments) Terrible dreams AazikbwtDfmhbdfeuyvujjNwwjqf48/05/2017 Other Reaction(s): Other (See Comments) I hallucinate This is not a true allergy YlsccjoxtlnSmfezzqmnlxYnia12/12/2014 Swelling of Lip/Tongue/Throat Other Reaction(s): Swelling of [...] tablet Take 15 mg by mouth at teowecd0301/29/2024ctive celecoxib (CeleBREX) 200 MG capsule 02/22/2024ctive hydrOXYzine [...] MOUTH IN THE MORNING AND BEFORE BEDTIMEActive OFT-Kkkb-WwPzrr-MgHydr-Simeth (First-Mouthwash BLM) suspension Take 5 mL by mouth 4 (four) times a day as ciiufz1801/10/2025tive furosemide (Lasix) 40 MG tablet Take 40 [...] tablet Take 25 mg by mouth at vxvntwa2611/28/2024tive ondansetron ODT (Zofran-ODT) 4 MG disintegrating tablet DISSOLVE 1 TABLET (4 MG TOTAL) ON THE TONGUE EVERY 8 HOURS NEEDED FOR NAUSEA FOR UP TO 10 DOSES02/09/2025tive potassium chloride CR (K-Tab) 20 MEQ ER tablet TAKE 1 TABLET (20 MEQ TOTAL) BY MOUTH IN THE UBXQFDL7302/21/2025tive propranolol (Inderal) 40 MG tablet TAKE 1 TABLET (40 MG TOTAL) BY MOUTH IN THE MORNING AND BEFORE HFVHXAT5611/08/2024 Active valsartan (Diovan) 40 MG tablet Take 40 mg by mouth in the morning.5Active Trintellix 10 MG tablet Take 1 tablet by mouth Daily01/04/2025tive Xkqzjuh-Iuriiyulnou-Kzbnhbitce (Breztri Aerosphere) 160-9-4.8 MCG/ACT aerosol Indications:Chronic obstructive pulmonary disease, unspecified COPD type (HCC) Inhale 2 puffs in the morning and 2 puffs before bedtime. 10.7 g tive Hndayid-Kgoumqqmtbz-Oiycsbtsln (AddSearchztri Aerosphere) 160-9-4.8 MCG/ACT aerosol Indications:Chronic obstructive pulmonary disease, unspecified COPD type (HCC) Inhale 2 puffs in the morning and 2 puffs before bedtime. 10.7 g Discontinued(Reorder) Active Problems ProblemNoted DateDiagnosed DateAcute pulmonary embolism without acute cor /03/2024losed wedge compression fracture of T6 vertebra with routine jddkfez8708/28/2023hronic respiratory failure with hypoxia and hypercapnia 07/25/2023annabis use disorder, mild, abuse05/28/2023Major depressive disorder 05/28/2023Morbid (severe) obesity due to excess hvmoflrx24/04/2024Muscle weakness (generalized)04/30/2023hronic obstructive pulmonary disease, hrgezhlkudq21/03/6285Vuqllzuzmix16/03/2024Iron deficiency anemia, unspecified 04/29/2023Migraine, unspecified, not intractable, without status migrainosus 04/29/2023anic ppkviwkt50/03/2024Vitamin D deficiency, dlrjnzofoag37/03/2024 Srdwpwfyapt50/27/2023ipolar 2 disorder, major depressive fupvduf0010/21/2022ERD (gastroesophageal reflux disease)10/21/2022Essential dpvaxeeqyqur88/02/2023Hx of bcszurkqwmabre27/02/2023OSA treated with BiPAP07/31/2022Liver bumjqod6004/15/2022 Chronic heart failure with preserved ejection nhfehcee18/03/2022Hyperglycemia 08/14/2020ow back pain08/14/2020NSTEMI (non-ST elevated myocardial infarction) 01/09/20209695Forrfwm55/03/2016Borderline personality aqilgyuz06/03/2016PTSD (post- traumatic stress disorder)08/28/2015Chronic iypawkzn81/12/2015CAD S/P percutaneous coronary idqqnhxptgl70/12/2014 Overview (01/22/2024): Dr. Vickers at [facility] in [place] did PCI with bare metal stent placement 03/2010 Resolved Problems ProblemNoted DateDiagnosed DateResolved DateAtherosclerotic heart disease of false pass coronary artery with other forms of angina nuchmdzl18 Overview (03/08/2025): Noted by JULIANE Cardoso DO last documented on 20240307 Chronic obstructive pulmonary disease with acute ixkcodibkeqz09/12/2025 03/08/2025 Overview (03/08/2025): Noted by [facility] last documented on 20231217 Chronic kidney disease, stage 3a Overview (03/08/2025): Noted by JULIANE Cardoso DO last documented on 20240307 Unspecified dementia, unspecified severity, with mood dkgubfnrvqi46/12/2025 03/08/2025 Overview (03/08/2025): Noted by [facility] last documented on 20231217 Esophageal ulcerHiatal coggty71Microcytic kvqzhf20ute on chronic respiratory failure with hypoxia and neqghpqcoqv01History of four vessel coronary artery bypass graftNonrheumatic tricuspid valve zoyjcsvpobcfj76/04/2025 03/08/2025Pulmonary znsaqpzjlmpj34Ventricular tachycardia Overview (09/20/2024): Documented on 08/23/2020 Arthritis of left sacroiliac jointStage 3a chronic kidney zigwhqd31Weakness02/Obesity with body mass index 30 or rjsqltu59Psoriasis, mtlwrlzqira70/06/2024 03/15/2024Unspecified dementia, mild, without behavioral disturbance, psychotic disturbance, mood disturbance, and ahqvscb42OVID-19004/29/2023 03/15/2024ependence on other enabling machines and ybqayzc66 Personal history of nicotine mxlirgulsn30neumonia, unspecified hekdodcr79olyneuropathy, gocmnbvfljb43/03/2024 03/15/2024resence of aortocoronary bypass graftSolitary pulmonary nndhbw86HyperlipidemiaNicotine xzklkqdjjg45Difficulty in walking, not elsewhere classified Former iobiwx30igarette nicotine dependence in jjkqqsegp71therosclerosis of false pass coronary artery of false pass heart without angina dnqiatmz61 Encounters DateTypeDepartmentCare KanyYfesadvmyas03/14/2025bstract [facility] [address] [place] [address] Sydnie Guerrero DO 03/08/2025 3:15 PM ESTOffice Visit [facility] [address] [place] [address] Sydnie Guerrero DO Chronic obstructive pulmonary disease, unspecified COPD type (HCC) (Primary Dx); Chronic respiratory failure with hypoxia and hypercapnia (HCC); BONY (obstructive sleep apnea)03/08/2025amboo flowsheet [facility] [address] [place] [address] Sydnie Guerrero, DO 02/08/2025[facility]phone [facility] [address] [place] [phone] Sydnie Guerrero, DO 01/25/2025Telephone [facility] [address] [place] [phone] Sydnie Guerrero, DO 01/18/2025Telephone [facility] [address] [place] [address] Patricia Mcclure MA 01/03/2025Telephone [facility] [address] [place] [phone] Sydnie Guerrero, DO from Last 3 Months Immunizations ImmunizationAdministration DatesNext DuePPD Test05/12/2023,05/12/2023,04/30/2023 ,04/30/2023 Family History Medical HistoryRelationNameCommentsHeart diseaseMotherBettyHyperlipidemiaMother BettyRelationNameStatusCommentsFatherAliveMotherBettyDeceased Social History Tobacco UseTypesPacks/DayYears UsedDateSmoking Tobacco: FormerCigarettesQuit: 202mokeless Tobacco: Former Tobacco Cessation:Counseling Given: Not Answered Alcohol UseStandard Drinks/WeekCommentsNot Currently0 (1 standard drink = 0.6 oz pure alcohol)CommentsUnknownSex and Gender InformationValueDate Recorded Sex Assigned at BirthNot on fileLegal YxcPrurdc49/15/2023 11:01 PM EDTGender IdentityNot on fileSexual OrientationNot on file Last Filed Vital Signs Vital SignReadingTime TakenCommentsBlood Ezoxyvtf566/7203/08/2025 3:19 PM EST Lsoue957803/08/2025 3:19 PM ESTTemperature--Respiratory Rate--Oxygen Gvdkqnkqaj24% 03/08/2025 3:19 PM ESTInhaled Oxygen Concentration--Jvtgnr933 kg (244 lb) 03/08/2025 3:19 PM WWRUbetul544.3 cm (5' 9 )03/08/2025 3:19 PM ESTBody Mass Index36.03105/08/2024 3:19 PM EST Plan of Treatment DateTypeDepartmentCare Team (Latest Contact Info)Ssqlusokxne88/04/2026 3:30 PM ESTOffice Visit [facility] [address] [place] [phone] Sydnie Guerrero, DO [address] [place] [address] Insurance Care Teams Team MemberRelationshipSpecialtyStart DateEnd Date Michael Steiner MD [address] [place] [address] PCP - [facility]Di[facility]08/11/23
--- OUTSIDE RECORDS SUMMARY | 2025-03-27 09:35 | XMS_ITS ---
Author Organization [facility] Care Team Providers Care Wrist Closer Name Role Phone Ashvin Vazquez Jr Unavailable Unavailable Sobia Villarreal Unavailable Unavailabl e Allergies and adverse reactions Code CodeSystem Substance Reaction Severity StartDate Concern Status 612280338 SNOMED CT Morphine Unknown 04/29/2023 active 8001 RXNORM Penicillin Unknown 05/01/2023 active Care Team Name Role Address Phone Organization Dates Ashvin Vazquez Jr PCP [facility] [place], [address], [place] (Office): : : - (Pager): [facility] 04/29/2023 - 05/15/2023 Sobia Villarreal [address] [place] [address], [address], [facility] (Cell): [facility] 04/29/2023 - 05/15/2023 Immunizations Immunization Status Vaccine Details Vaccine Code CodeSystem Deng e Notes Influenza cancelled Influenza, high-dose, split virus, quadrivalent, injectable, preservative free 197 CVX created date: 05/05/2023 consent date: 05/05/2023 TB 2 Step Mantoux Skin Testcompletedtuberculin skin test; unspecified formulation lotNumber: [id number] expiry: 07/25/2024 Mfg: par Given 0.1 ml Left Forearm intradermally Step 2 of Multi-step with next step ewggeuok73KYMoinwdss date: 05/12/2023 consent date: 05/12/2023 administered date: 05/12/2023no reaction to TbTB 2 Step Mantoux Skin Test completedtuberculin skin test; unspecified formulation Mfg: pharm Given 0.1 ml Right Forearm intradermally Step 1 of Multi-step with next step vgpavhqc51PLDylovxzi date: 05/01/2023 consent date: 05/01/2023 administered date: 05/01/2023Educated by Radha LATHAM on 05/02/20237551VTMT-KMP-8 (COVID-19)ionatzizeCJTB-CLZ-4 (COVID-19) vaccine, mRNA, spike protein, LNP, preservative free, 50 mcg/0.5 mL qysb834TABzdwkxhg date: 05/05/2023 consent date: 05/05/20235785MYCR-HHI-5 (COVID-19)hyvdfvgrgEDBS-RRO-7 (COVID-19) vaccine, mRNA, spike protein, LNP, preservative free, 25 mcg/0.25 mL pgkc202CDJ created date: 05/05/2023 consent date: 4PPSV 20cancelledPneumococcal conjugate vaccine 20-valent (PCV20), polysaccharide OGA191 conjugate, adjuvant, preservative ccoa514GZT created date: 05/05/2023 consent date: 4RSVcancelledrespiratory syncytial virus monoclonal antibody (palivizumab), wrkfaapscftpb80JWStsgrthg date: 05/05/2023 consent date: 05/13/2023 Mental Status Section Date Assessment Total Score Description 05/15/2023 BIMS 15 cognitively int act CAM 0 No delirium ind icated PHQ-9 00 9670HVMK84wuuohgbault svxxmbFII3Gd delirium indicatedPHQ-900 Insurance Providers Coverage Status Coverage Type Relationship to Subscriber Member Identifier Subscriber Identifier Group Identifier Payer Identifier and Other information Code: Code System OID:[id number] .[id number]. 5 Code System Name: Source of Payment Typology (PHDSC) Display: Managed Care (Private) Translation: Code: Code System: OID:[id number] .[id number]. 1336 Code System Name: Insurance Type Code ([id number]) Display Name: Health Maintenance Organization (HMO) Plan Problems Problem # Description Date of onset Resolved Date Code CodeSystem Concern Status 1 BODY MASS INDEX [BMI] 37.0-37.9, ADULT [address] active 2 PSORIASIS, UNSPECIFIED [address] active 3 CHRONIC DIASTOLIC (CONGESTIVE) HEART FAILURE [address] active 4 MORBID (SEVERE) OBESITY DUE TO EXCESS CALORIES [address] active 5 MUSCLE WEAKNESS (GENERALIZED) [address] active 6 NEED FOR ASSISTANCE WITH PERSONAL CARE [address] active 7 OBSTRUCTIVE SLEEP APNEA (ADULT) (PEDIATRIC) [address] active 8 UNSPECIFIED DEMENTIA, MILD, WITHOUT BEHAVIORAL DISTURBANCE, PSYCHOTIC DISTURBANCE, MOOD DISTURBANCE, AND ANXIETY [address] active 9 AGORAPHOBIA, UNSPECIFIED [address] active 10 ANXIETY DISORDER, UNSPECIFIED [address] active [address] [place] CORONARY ARTERY WITHOUT ANGINA PECTORIS [address] active [address] [place] CORONARY ARTERY WITHOUT ANGINA PECTORIS 024 04/29/[address] completed 13 BIPOLAR DISORDER, UNSPECIFIED [address] active 14 BODY MASS INDEX [BMI] 38.0-38.9, ADULT 024 05/13/[address] completed 15 CHRONIC OBSTRUCTIVE PULMONARY DISEASE, UNSPECIFIED [address] active 16 COVID-[address] active 17 DEPENDENCE ON OTHER ENABLING MACHINES AND DEVICES [address] active 18 DEPRESSION, UNSPECIFIED [address] active 19 ESSENTIAL (PRIMARY) HYPERTENSION [address] active 20 GASTRO-ESOPHAGEAL REFLUX DISEASE WITHOUT ESOPHAGITIS [address] active 21 HYPERLIPIDEMIA, UNSPECIFIED [address] active 22 HY[address]KALEMIA [address] active 23 IRON DEFICIENCY ANEMIA, UNSPECIFIED [address] active 24 MIGRAINE, UNSPECIFIED, NOT INTRACTABLE, WITHOUT STATUS MIGRAINOSUS [address] active 25 OLD MYOCARDIAL INFARCTION [address] active 26 PANIC DISORDER [EPISODIC PAROXYSMAL ANXIETY] [address] active 27 PERSONAL HISTORY OF NICOTINE DEPENDENCE [address] active 28 PNEUMONIA, UNSPECIFIED ORGANISM [address] active 29 POLYNEUROPATHY, UNSPECIFIED [address] active 30 POST-TRAUMATIC STRESS DISORDER, UNSPECIFIED [address] active 31 PRESENCE OF AORTOCORONARY BYPASS GRAFT [address] active 32 SOLITARY PULMONARY NODULE [address] active 33 UNSPECIFIED DEMENTIA, UNSPECIFIED SEVERITY, WITHOUT BEHAVIORAL DISTURBANCE, PSYCHOTIC DISTURBANCE, MOOD DISTURBANCE, AND ANXIETY 024 04/30/[address] completed 34 UNSPECIFIED OSTEOARTHRITIS, UNSPECIFIED SITE [address] active 35 VITAMIN D DEFICIENCY, UNSPECIFIED [address] active 36 DIFFICULTY IN WALKING, NOT ELSEWHERE CLASSIFIED [address] active Reason for Referral No Reasons for Referral Entered Social History Social History Observation Description Start Date End Date Code Code System Current Smoking Status Tobacco smoking consumption unknown 395454230 SNOMED CT Sex Assigned At Female 1960 89785-8 LOINC Gender Identity Sexual Orientation Vital Signs Code Code System Vitals Name Values and Units Timing Information 9279-1 LOINC Respiratory Rate Value=18.0 Units=/m in 05/15/2023 8462-4 LOINC Blood Pressure-Diastolic Value=44 Un its=mmHg 05/15/2023 8480-6 LOINC Blood Pressure-Systolic Value=94 Uni ts=mmHg 05/15/2023 8310-5 LOINC Body Temperature Value=98.1 Units= F 05/15/2023 8867-4 [facility] Heart rate Value=74.0 Units=/min 09482-5 [facility] O2 % BldC Oximetry Value=91.0 Units= % 05/15/2023 90492-8 [facility] Pain Level Value=0.0 05/15/2023 20495-2 LOINC Weight Mikhd=347.8 Units=Lbs 8302-2 LOINC Height Value=69.0 Units=Inches 04/29/2023
--- OUTSIDE RECORDS SUMMARY | 2025-03-27 09:35 | XMS_ITS | Encounter Summary ---
Author Organization [facility] [employer] [facility] tem Address [id number] [place] [address] Care Team Providers Care Property Disposal Officer Name Role Phone VickyumairMichael DO Primary Care Provider [phone] Reason for Visit * ReasonCommentsMed Change Request Encounter Details DateTypeDepartmentCare Team (Latest Contact Info)Bubhxzzmszz55/21/2025RefUniversity [facility] [address] [place] [phone] Risa Summers MD [address] [place] [address] Social History Tobacco UseTypesPacks/DayYears UsedDateSmoking Tobacco: AbwebsHsgsamadef667 09/1981 - mokeless Tobacco: Never Comments:5-6 cigerettes a da y Alcohol UseStandard Drinks/WeekCommentsNot Currently0 (1 standard drink = 0.6 oz pure alcohol)last use 15 years agoAHC UtilitiesAnswerDate RecordedIn the past 12 months has the [employer], gas, oil, or water [employer] threatened to shut off services in your home?No12/04/2024Social Connection and Isolation PanelAnswer Date RecordedIn a typical week, how many times do you talk on the phone with family, friends, or neighbors?Three times a week03/30/2024How often do you get together with friends or relatives?Three times a week07/25/2023How often do you attend jain or buddhism services?More than 4 times per year07/25/2023o you belong to any clubs or organizations such as jain groups, unions, fraternal [...] or more drinks on one occasion?Never07/25/2023HQ-2AnswerDate RecordedTotal Srowl27305/15/2024[place] [employer] [employer] - Occupational Stress QuestionnaireAnswerDate RecordedDo you feel stress - tense, restless, nervous, or anxious, or unable to sleep at night because yourmind is troubled all the time - these days?Only a ujmesi8907/25/2023Exercise Vital Sign AnswerDate RecordedOn average, how many [...] of a household?No5ChildcareAnswerDate RecordedDo problems getting child psychometrist make 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 to work or study?No12/04/2024 EmploymentAnswerDate RecordedDo you need help finding a local career center and/or a training program?No12/04/2024Hunger ScreeningAnswerDate RecordedWithin the past 12 months we worried whether our food would run out before we got money to buy more.Patient Menjmdeo57/19/2025Within the past 12 months the food we bought just didn't last and we didn't have money to get more.Patient Declined 03/15/2025Purpose - LifeAnswerDate RecordedI have a purpose and direction in my life.Strongly Agree07/25/2023CommentsNoSex and Gender InformationValue Date RecordedSex Assigned at QxhrsMmgkzl88/10/2021 8:51 AM EDTLegal SexFemale 02/16/2017 2:26 PM EDTGender NgkxfvlpYmdqvh63/10/2021 8:51 AM EDTSexual TioqqlakbrwWpkhtjlw07/02/2023 8:29 PM ESTdocumented as of this encounter Miscellaneous Notes * Telephone Encounter - Nuha Nichole RN - 03/17/2025 10:30 AM EST Request for 90 days instead of 30 OV 02/06/25 BMP 02/22/25 documented in this encounter Plan of Treatment DateTypeDepartmentCare Team (Latest Contact Info)Mddujlamepf02/12/2025 7:45 AM ESTAppointment [facility] [address] [place] [address] documented as of this encounter [...] DateEnd Date Michael Steiner DO [address] [place] [address] PCP - GeneralInternal Medicine12/17/23documented as of this encounter
--- OUTSIDE RECORDS SUMMARY | 2025-03-27 09:36 | XMS_ITS | Clinical Summary ---
Author Organization [employer] tem Address [facility] [facility]-[id number] [address] [place] [address] Care Team Providers Care Sack Cleaner Name Role Phone JoansunshineMichael DO Primary Care Provider [phone] Allergies Active AllergyReactionsCriticalityNoted DateCommentsFentanylOther (See Comments) Wmqcel4512/15/2024 Terrible dreams MorphineOther (See Comments)03/31/2017 I hallucinate This is not a true allergy VumljkqjwxuVqtwmbutmicTeer96/12/2014 Other Reaction(s): Swelling of Lip/Tongue/Throat Medications MedicationSigDispense [...] nightly.05/13/2023ctive doxepin (SINEquan) 75 mg capsule Active tvaigfwynl-wzirwmhu-bzfommlyzn (BREZTRI AEROSPHERE) 160-9-4.8 mcg/actuation HFA aerosol inhaler Indications:Chronic obstructive pulmonary disease, unspecified COPD type ([facility])Inhale 2 puffs in the morning and 2 puffs before bedtime. 10.7 g 4Active acetaminophen (TYLENOL) 325 mg tablet Take 2 tablets (650 mg total) by mouth every 4 (four) hours as needed for pain or headaches. 30 tablet 4Active clonazePAM (KlonoPIN) 0.5 mg tablet Take 1 tablet (0.5 mg total) by mouth in the morning and 1 tablet (0.5 mg total) before bedtime.09/14/2023ctive lamoTRIgine (LaMICtal) 150 mg tablet Take 1 tablet (150 mg total) by mouth in the morning.10/07/2023ctive atorvastatin (LIPITOR) 80 mg tablet Indications:Atherosclerosis of [place] coronary artery of [place] heart without angina pectoris,Hx of hyperlipidemiaTake 1 [...] Indications:Chronic heart failure with preserved ejection fraction ([facility]), Pulmonary hypertension ([facility]),Nonrheumatic tricuspid valve regurgitation, Essential hypertension,Atherosclerosis of [place] coronary artery of [place] heart without angina pectoris,History of four vessel coronary artery bypass graft, NSTEMI (non-ST elevated myocardial infarction) ([facility])Take 1 tablet (25 mg total) by mouth [...] 10 mg tablet Indications:Atherosclerotic heart disease of [place] coronary artery with other forms of angina pectorisTAKE 1 TABLET (10 MG TOTAL) BY MOUTH IN THE MORNING 90 tablet 5Active propranoloL (INDERAL) 40 mg tablet Take 1 tablet (40 mg total) by mouth in the morning and at bedtime. TAKE 1 TABLET (40 MG TOTAL) BY MOUTH IN THE MORNING AND BEFORE SUSDEUL11/15/2025Active cezavs-hevujbqqh-tgm,al-simeth (FIRST-MOUTHWASH BLM) 34-635-866-40 mg/30mL mouthwash Indications:StomatitisTake 5 mL by mouth [...] up to 10 doses. 10 tablet 5Active torsemide (DEMADEX) 20 mg tablet Indications:Chronic diastolic heart failure (CMS-HCC)Take 4 tablets (80 mg total) by mouth daily. 120 tablet 5Active JARDIANCE 10 mg tablet tablet Indications:Chronic heart failure with preserved ejection fraction (CMS-HCC), Atherosclerosis of [place] coronary artery of [place] heart without angina pectorisTAKE 1 TABLET (10 [...] as needed for pain. 28 g 5Active potassium chloride (K-TAB,KLOR-CON) 20 mEq CR tablet TAKE 1 TABLET (20 MEQ TOTAL) BY MOUTH IN THE MORNING 90 tablet 5Active empagliflozin (JARDIANCE) 10 mg tablet tablet Indications:Chronic heart failure with preserved ejection fraction ([facility]), Atherosclerosis of [place] coronary artery of [place] heart without angina pectorisTake 1 tablet (10 mg total) by mouth in the morning. TAKE 1 TABLET (10 MG TOTAL) BY MOUTH IN THE MORNING. 90 tablet Discontinued diclofenac-miSOPROStol (ARTHROTEC 50) 50-200 mg-mcg EC tablet Take 1 tablet by mouth in the morning and 1 tablet before bedtime. 60 tablet Discontinued potassium chloride (K-TAB,KLOR-CON) 20 mEq CR tablet Take 1 tablet (20 mEq total) by mouth in the morning. 30 tablet Discontinued diclofenac-miSOPROStol (ARTHROTEC 50) 50-200 mg-mcg [...] on chronic respiratory failure with hypoxia and rhxtpbfmqqa46/10/2025History of four vessel coronary artery bypass graft11/28/2024Pulmonary jlftauvnanwm50/04/2025 Nonrheumatic tricuspid valve kldgufzzbdqai49/04/2025rthritis of left sacroiliac joint07/07/2024Stage 3a chronic kidney rvryyxr42/13/2025Closed wedge compression fracture of T6 vertebra with routine erxjfji6608/28/2023hronic respiratory failure with hypoxia and actruigtcvj90/30/2024Major depressive disorder 05/28/2023anic gwhigxpl84/01/2024hronic obstructive pulmonary disease 04/29/2023Iron deficiency hmrjbo5904/29/2023Gastroesophageal reflux disease without jrxdxguzxar63/03/3717Wsvgdqsobsx57/27/6995Cqpnvli66/27/2023hipped tooth 10/21/2022ERD (gastroesophageal reflux disease)10/21/2022Osteoarthritis 10/21/2022 Overview (10/21/2022): Apr 2009, swith stent placement Posttraumatic stress hpoguoej05/27/2023ipolar 2 disorder, major depressive uhazxoe1810/21/2022Essential dsxidqelfyjm28/02/2023Hx of xouhjmiyivoecb27/02/2023 Former ticzqo3709/26/2022Obstructive sleep apnea qkyngjin62/06/2023epressive zuucoagv18/20/2022Liver lzhkzdb9204/15/2022Visual fennrciqgh60/20/2022 Overview (04/15/2022): glasses Chronic heart failure with preserved ejection uvxepram50/03/2022igarette nicotine dependence in dbaclxhcr69/22/9367Rwawslljowzvn07/20/2021ow back pain 08/14/2020therosclerosis of coronary artery without angina spvaxmpv83/05/2021 Obesity (BMI 30-39.9)01/30/2020NSTEMI (non-ST elevated myocardial infarction) 01/09/2020 Resolved Problems ProblemNoted DateDiagnosed DateResolved DateAcute hypoxic on chronic hypercapnic respiratory sfjktyn61/5BMI 40.0-44.9, adult Cannabis use disorder, mild, abuse/5COVID-19106/16/2022 07/01/2023cute respiratory failure with hypoxia and siuezmurmyq69/19/2023 05/18/2023iPAP (biphasic positive airway pressure) fglkqugdsg77/27/2023 11/06/2022anic / Overview (04/15/2022): Apr 2009, swith stent placement Shortness of /09/2023Hypotension due to jrisztplhbe16/20/2021 11/05/2021SCVD (arteriosclerotic cardiovascular disease)/11/2022 Encounters DateTypeDepartmentCare YlssLoqgndyhvji01/21/2025Refill [facility] - Heart Failure Clinic [address] [facility] [address] Risa Summers MD 03/15/2025 1:30 PM ESTOffice Visit [facility] [address] [place] [address] Michael Steiner, Ulcer of esophagus with bleeding (Primary Dx); Gastro-esophageal reflux disease without esophagitis; Hiatal hernia with GERD; Spinal stenosis of lumbar region with neurogenic scdcalwsqgxm00/18/2025Travel 03/10/[facility] [address] [place] [address] Michael Steiner, Spinal stenosis of lumbar region with neurogenic claudication; Ulcer of esophagus with /14/2025Refill [facility] - Family Medicine [address] [place] [address] Michael Steiner, Spinal stenosis of lumbar region with neurogenic claudication; Ulcer of esophagus with malpkptz73/14/2025[facility] [address] [place] [address] Michael Steiner, Spinal stenosis of lumbar region with neurogenic claudication; Ulcer of esophagus with kocbggrx37/14/2025[facility] [address] [place] [address] Michael Steiner, Spinal stenosis of lumbar region with neurogenic claudication (Primary Dx); Ulcer of esophagus with klnstezm77/05/2025Telephone [facility] [address] [place] [address] Juan Diego Esquivel CMA 02/28/2025Refill [facility] [address] [place] [address] Michael Steiner, 02/24/2025Refill [facility] [address] [place] [address] Michael Steiner, DO Gastro-esophageal reflux disease without zenesoxelnw73/31/2025Refill [facility] [address] [place] [address] Linda Simon APRN-[facility] Med Rxsczi7702/22/2025 3:15 PM EDT - 02/22/2025 5:54 PM EDTEmerAd[facility] [address] [place] [address] Fernando Torres MD Right upper quadrant abdominal pain (Primary Dx) Discharge Disposition: Home02/22/20250718Hagpzg98/27/2025Results Follow-Up [facility] Failure [facility] [address] [place] [address] Kacey Sims RN Basic Metabolic Panel02/20/20251090Ezquip10/20/8402Pwbske74/17/2025Telephone [facility] [address] [place] [address] Megan Talley CMA 02/09/2025 2:10 PM EDT - 02/09/2025 2:15 PM EDTEmerAd[facility] [address] [place] [address] Kunal Mims MD Abdominal pain, unspecified abdominal location (Primary Dx) Discharge Disposition: Home02/09/20250569Wgvfxn77/13/2025 12:00 PM EDTOffice Visit [facility] [address] [place] [address] Risa Summers MD Chronic diastolic heart failure (CMS-HCC) (Primary Dx); Pulmonary hypertension ([facility]); Nonrheumatic tricuspid valve cqecyywgwucyi59/13/2025Telephone [facility] - Family Medicine [address] [place] [address] Tosin Reyes, [facility] 02/06/2025Telephone [facility] Failure [facility] [address] [place] [address] Antoinette Sanchez CNA 02/03/2025Telephone [facility] Failure [facility] [address] [place] [address] Antoinette Sanchez CNA 01/10/2025Telephone [facility] Internal Medicine - Family Medicine [address] [place] [address] Megan Talley, [facility] 01/10/2025Orders Only [facility] - Family Medicine [address] [place] [address] Michael Steiner, DO Stomatitis (Primary Dx)01/09/2025Results Follow-Up [facility] - Endoscopy [address] [place] [address] Michael Steiner, DO Surgical Fkdezjwyy17/10/2025 10:00 AM EDT - 01/04/2025 11:00 AM EDTSurgery [facility] - Endoscopy [address] [place] [address] Michael Steiner, DO ESOPHAGOGASTRODUODENOSCOPY DIAGNOSTIC [[id number] (CPT??)]01/04/2025 8:57 AM EDT - 01/04/2025 10:46 AM EDTHospital Encounter [facility] - Endoscopy [address] [place] [address] Michael Steiner DO Ulcer of esophagus without bleeding (Primary Dx); Hiatal hernia; Microcytic anemia Discharge Disposition: Home01/04/20256406Rsepro65/09/2025 3:50 PM EDTSupport Visit [facility] - Pre Admit [address] [place] [address] 12/28/2024Results Follow-Up [facility] Failure [facility] [address] [place] [address] Kacey Sims RN Basic Metabolic Panel12/28/20240016Oulchl17/03/2025Refill [facility] - Family Medicine [address] [place] [address] Michael Steiner DO Atherosclerotic heart disease of [place] coronary artery with other forms of angina mszjxyxl30/02/2025Travelfrom Last 3 Months Immunizations ImmunizationAdministration DatesNext DuePPD Test05/12/2023,04/30/2023Tuberculin Skin Test; Unspecified Kfhcwpeyhgk75/16/2024,04/30/2023 Family History Medical HistoryRelationNameCommentsAlcohol abuseFatherDementiaFatherCancer Maternal GrandmotherCervical cancerMaternal GrandmotherDepressionMotherHeart failureMotherHypertensionMotherBreast cancerNeg HxRelationNameStatusComments Brother 1AliveBrother 2AliveFatherDeceasedMaternal GrandfatherDeceasedMaternal GrandmotherDeceasedMotherDeceasedPaternal GrandfatherDeceasedPaternal GrandmotherDeceased Social History Tobacco UseTypesPacks/DayYears UsedDateSmoking Tobacco: TlyocgCvjlaqhioy804 09/1981 - mokeless Tobacco: Never Tobacco Cessation:Counseling [...] often do you attend jehovah's witness or bahai services?More than 4 times per [...] or more drinks on one occasion?Never07/25/2023HQ-2AnswerDate RecordedTotal Rkilf27205/15/2024[facility] [place] [facility] - Occupational Stress QuestionnaireAnswerDate RecordedDo you feel stress - tense, restless, nervous, or anxious, or unable to sleep at night because yourmind is troubled all the time - these days?Only a puvabv1807/25/2023Exercise Vital Sign AnswerDate RecordedOn average, how many [...] of a household?No03/14/2025hildcareAnswerDate RecordedDo problems getting childcare attendant make 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 to work or study?No12/04/2024 EmploymentAnswerDate RecordedDo you need help finding a local career center and/or a training program?No12/04/2024Hunger ScreeningAnswerDate RecordedWithin the past 12 months we worried whether our food would run out before we got money to buy more.Patient Lvrildsy06/19/2025Within the past 12 months the food we bought just didn't last and we didn't have money to get more.Patient Declined 03/15/2025Purpose - LifeAnswerDate RecordedI have a purpose and direction in my life.Strongly Agree07/25/2023CommentsNoSex and Gender InformationValue Date RecordedSex Assigned at AmsorUobnmc76/10/2021 8:51 AM EDTLegal SexFemale 02/16/2017 2:26 PM EDTGender InxbibbeFpoyoa25/10/2021 8:51 AM EDTSexual LoyvdaxxilpYuaajsxe96/02/2023 8:29 PM EST Last Filed Vital Signs Vital SignReadingTime TakenCommentsBlood Clvojftu702/6403/15/2025 1:44 PM EST Fpsrd829303/15/2025 1:44 PM PEIPwibwjltftn78.9 ??C (98.5 ??F)03/15/2025 1:44 PM ESTRespiratory Tnbp013205/15/2024 1:44 PM ESTOxygen Lttgerbckp20%03/15/2025 1:44 PM ESTInhaled Oxygen Concentration--Malrpv362.7 kg (237 lb 6.4 oz)03/15/2025 1:44 PM DLRLccodw151.3 cm (5' 9.02 )03/15/2025 1:44 PM ESTBody Mass Index35.04 03/15/2025 1:44 PM EST Plan of Treatment DateTypeDepartmentCare Team (Latest Contact Info)Usegylwenjc46/12/2025 7:45 AM ESTAppointment [facility] [address] [place] [address] Health MaintenanceDue DateLast DoneCommentsDiabetic Ophthalmology Exam1962 Adult BMI Follow Up Plan1980Diabetic Foot Exam1980DTaP,Tdap and Td Vaccines (1 - Tdap)1981Zoster (Shingles) Vaccine (1 of 2)2012RSV ( or age 60+ yrs) (1 - Risk 60-74 years 1-dose series)3Pap Smear, 02/18/2022tatin Use: Luupacprxospvo97/31/2025 04/26/2024Statin Use: Mpzxciqi74dult BMI Vvzywkdyp31/19/2026 03/15/2025Depression Smbehldbe08Tobacco Vaovwgxxo52/19/2026 03/15/2025Influenza VaccineDiscontinued Goals GoalPatient Goal TypeAssociated ProblemsRecent ProgressPatient-Stated?Author home Jimena Wilson LSW Note: Evaluation of progress towards goal: feeling better Medical Devices ImplantedTypeAreaManufacturerDevice IdentifierShelf Expiration DateModel / Serial / LotDes Xience Jocelin 2.75x28 Rx - [id number] Implanted:Qty: 1 on 01/09/2020 [facility]: ArterialABBOTT [id number] / / [id number] Xience Jocelin 2.75x8 Rx - [id number] Implanted:Qty: 1 on 01/09/2020 [facility]: ArterialABBOTT [id number] / / [id number] Procedures Procedure NamePriorityDate/TimeAssociated DiagnosisCommentsPOCT NURSING URINE MACROSCOPIC BPXeyywqn55/29/2025 5:26 PM EDT ER EXTRA URINE SRDSJTDREX82/29/2025 5:18 PM EDT ER EXTRA URINE EVXOQPBONAW75/29/2025 5:18 PM EDT ER EXTRA FRVIUNKDR28/29/2025 5:[address] ABDOMEN AND PELVIS W HBLDVWKR21/29/2025 3:46 PM EDT EXTRA TUBES SST BGTWtetcgn71/29/2025 3:40 PM EDT EXTRA TUBES BLUE NICNugqxwv41/29/2025 3:40 PM EDT EXTRA WJMPNFbfhwsy62/29/2025 3:40 PM EDT LACTATE W/ VOPUMHBAEB25/29/2025 3:40 PM EDT ZDCITBMEQYTIH71/29/2025 3:40 PM EDT MSFEFCGCNQ36/29/2025 3:40 PM EDT COMPREHENSIVE METABOLIC BMZLSJTEU46/29/2025 3:40 PM EDT CBC WITH AUTO HDUKDZIOXAGBQNCJ62/29/2025 3:40 PM EDT BASIC METABOLIC NIPJUXzenklm60/27/2025 9:08 AM EDT Chronic diastolic heart failure (CMS-HCC) Pulmonary hypertension (CMS-HCC) Nonrheumatic tricuspid valve regurgitation CT ABDOMEN AND PELVIS W ZGURFGQH84/16/2025 3:32 PM EDT EXTRA TUBES BLUE QRECzbetdk96/16/2025 2:24 PM EDT EXTRA ISEJRDdpccag80/16/2025 2:24 PM EDT SYYIAHIXTU43/16/2025 2:24 PM EDT LIVER LEPDHKCFC20/16/2025 2:24 PM EDT BASIC METABOLIC GEUATZCPE70/16/2025 2:24 PM EDT CBC WITH AUTO MFPQWZILCDODJOAA95/16/2025 2:24 PM EDT SURGICAL CODCLJFEWOqtdyts31/10/2025 9:58 AM EDT IN ESOPHAGOGASTRODUODENOSCOPY TRANSORAL YLRZTTQCIX81/10/2025 9:43 AM EDT microcytic anemia BASIC METABOLIC OTWLKMzusqui15/03/2025 8:56 AM EDT Chronic heart failure with preserved ejection fraction (CMS-HCC) PAP UVOOJPmygiyh25/25/2022 10:08 AM EDT Encounter for screening for malignant neoplasm of cervix Encounter for screening for human papillomavirus (HPV) from Last 3 Months or Most Recently Relevant to Health Maintenance Results * (ABNORMAL) POCT Nursing Urine Macroscopic UA (02/22/2025 5:26 PM EDT)Component ValueRef RangeTest MethodAnalysis TimePerformed AtPathologist [facility] Urine Specific Gravity1.0101.010, 1.015, 1.020, 1.5119502/22/2025 5:27 PM EDT [facility] Urine Leukocyte EsteraseNegative Dywowjkv34/29/2025 5:27 [facility] Urine LgmrvsjAxpzpetyVspjbpvx84/29/2025 5:27 PM [facility] Urine pH5.55.0, 6.0, 6.5, 7.0, 7.5, 8.0, 8.5, 5. 5:27 PM [facility] Urine ProteinNegativeNegative 02/22/2025 5:27 PM [facility] Urine Qwzzerv096 mg/dL(A)Grdqbwdu47/29/2025 5:27 PM [facility] Urine PkbqzcvKqtoceqyFklpffjy65/29/2025 5:27 PM [facility] Urine Urobilinogen0.2 E.U./dL02/22/2025 5:27 PM [facility] Urine RvopdilpaErqfmymfBbdobmng22/29/2025 5:27 PM [facility] Urine Blood/HGBTrace(A)Negative 02/22/2025 5:27 PM [facility] (Source) Anatomical Location / LateralityCollection Method / VolumeCollection Time Received AsmiWuzjw03/29/2025 5:26 PM EDT1 5:26 PM EDT Narrative Authorizing ProviderResult TypeResult StatusPahuseyin Torres [facility] MEDICAL CENTEROINT OF CARE TEST ORDERABLESFinal ResultPerforming OrganizationAddressty/State/ZIP CodePhone Number [place] [phone] [place] [address], * Extra Urine Rifle (02/22/2025 5:18 PM EDT)ComponentValueRef RangeTest Method Analysis TimePerformed AtPathologist SignatureExtra TubeAuto Resulted 02/22/2025 7:01 PM [facility] (Source) Anatomical Location / LateralityCollection Method / VolumeCollection Time Received TimeUrineUrine specimen collection, clean catch / Nffqozr1402/22/2025 5:18 PM EDT1 5:56 PM EDT Narrative Authorizing ProviderResult TypeResult StatusAmber Andrade TYPING BOOKKEEPER-CNPURINE ORDERABLESFinal ResultPerforming OrganizationAddressCity/State/ZIP CodePhone Number [address] [place] [address], [place] * Extra Urine Culture (02/22/2025 5:18 PM EDT)ComponentValueRef RangeTest Method Analysis TimePerformed AtPathologist SignatureExtra TubeAuto Resulted 02/22/2025 7:01 PM EDTPADENA [facility] SYSTEMpecimen (Source) Anatomical Location / LateralityCollection Method / VolumeCollection Time Received TimeUrineUrine specimen collection, clean catch / Sfhwato5002/22/2025 5:18 PM EDT1 5:56 PM EDT Narrative Authorizing ProviderResult TypeResult StatusAmber Andrade TYPING BOOKKEEPER-CNPURINE ORDERABLESFinal ResultPerforming OrganizationAddressCity/State/ZIP CodePhone Number [address] [place] [address], [place] * Extra Urine (02/22/2025 5:18 PM EDT)ComponentValueRef RangeTest MethodAnalysis TimePerformed AtPathologist SignatureExtra TubeAuto Rpyqsxzv66/29/2025 7:01 PM EDTPADENA HEALTH SYSTEMpece[facility] (Source)Anatomical Location / LateralityCollection Method / VolumeCollection TimeReceived TimeUrineUrine specimen collection, clean catch / Hhzbrxs3502/22/2025 5:18 PM EDT1 5:56 PM EDT Narrative Authorizing ProviderResult TypeResult StatusAmber Andrade TYPING BOOKKEEPER-CNPURINE ORDERABLESFinal ResultPerforming OrganizationAddressCity/State/ZIP CodePhone Number [address] [place] [address], [place] * CT abdomen and pelvis with [...] 3:54 PM Authorizing ProviderResult TypeResult StatusAmber Andrade TYPING BOOKKEEPER-CNPIMG CT ORDERABLESFinal Result * SST TOP (02/22/2025 3:40 PM EDT)ComponentValueRef RangeTest MethodAnalysis TimePerformed AtPathologist SignatureExtra TubeAuto Gjxbribv09/29/2025 5:01 PM EDTPADENA HEALTH SYSTEMpecimen (Source)Anatomical Location / LateralityCollection Method / VolumeCollection TimeReceived TimeBloodVenous blood / Ddpipuj2302/22/2025 3:40 PM EDT1 4:01 PM EDT Narrative Authorizing ProviderResult TypeResult StatusAmber Andrade TYPING BOOKKEEPER-CNPLAB BLOOD ORDERABLESFinal ResultPerforming OrganizationAddressCity/State/ZIP CodePhone Number [facility] [address] [place] [address], * Light Blue Top (02/22/2025 3:40 PM EDT) Only the most recent of2 resultswithin the time period is included. ComponentValueRef RangeTest MethodAnalysis TimePerformed AtPathologist Signature Extra TubeAuto Vwkobqst12/29/2025 5:01 PM EDTPSALEM CITY [facility]ITAL Specimen (Source)Anatomical Location / LateralityCollection Method / Volume Collection TimeReceived TimeBloodVenous blood / Vltvmwk3602/22/2025 3:40 PM EDT 02/22/2025 4:01 PM EDT Narrative Authorizing ProviderResult TypeResult StatusAmber Andrade TYPING BOOKKEEPER-CNPLAB BLOOD ORDERABLESFinal ResultPerforming OrganizationAddressCity/State/ZIP CodePhone Number [address] [place] [address], [place] * Lactate w/ Reflex (02/22/2025 3:40 PM EDT)ComponentValueRef RangeTest Method Analysis TimePerformed AtPathologist SignatureLACTATE W/REFLEX0.90.4 - 2.0 mmol/L1 4:13 PM EDPREMIER HEALTH [facility]AMI VAL[facility] SOUTHpecimen (Source)Anatomical Location / LateralityCollection Method / VolumeCollection TimeReceived TimeBloodVenous blood / UnknownVenipuncture / Tvtonjj7002/22/2025 3:40 PM EDT1 3:55 PM EDT Narrative [facility] - 02/22/2025 4:13 PM EDT Result did not trigger repeat Lactate, re-order if needed. Authorizing ProviderResult TypeResult StatusAmber Andrade [place]-CNPLAB BLOOD ORDERABLESFinal ResultPerforming OrganizationAddressCity/State/ZIP CodePhone Number [address] [place] [address], [place] * (ABNORMAL) CBC auto differential (02/22/2025 3:40 PM EDT) Only the most recent of2 resultswithin the time period is included. ComponentValueRef RangeTest MethodAnalysis TimePerformed AtPathologist Signature WBC11.4(H)4 - 11 x10E9/L1 4:25 PM EDTPSALEM CITY HOSPITALRBC Count5.163.8 - 5.2 X10E12/L1 4:25 PM EDTPSALEM CITY HOSPITALHemoglobin10.7(L)11.7 - 15.5 g/dL02/22/2025 4:25 PM EDT [facility]ITALHematocrit35.135 - 47 %02/22/2025 4:25 PM EDT [facility]ITALMCV68(L)80 - 100 fL02/22/2025 4:25 PM EDT [facility]ITALMCH20.8(L)27 - 34 pg02/22/2025 4:25 PM EDT [facility]ITALMCHC30.5(L)32 - 36 g/dL02/22/2025 4:25 PM EDT [facility]ITALRDW24.9(H)11.5 - 15 %02/22/2025 4:25 PM EDT [facility]ITALPlatelet Qumer771521 - 450 X10E9/L1 4:25 PM [facility]MPV8.47 - 12 fL02/22/2025 4:25 PM [facility]ITALNeutrophils %72.1%02/22/2025 4:25 PM EDT [facility]ITALComment:This is an appended report. These results have been appended to a previously preliminary verified report. Lymphocytes %19.1%02/22/2025 4:25 PM [facility] Comment:This is an appended report. These results have been appended to a previously preliminary verified report.Monocytes %6.3%02/22/2025 4:25 PM EDT [facility]Comment:This is an appended report. These results have been appended to a previously preliminary verified report. Eosinophils %1.4%02/22/2025 4:25 PM [facility] Comment:This is an appended report. These results have been appended to a previously preliminary verified report.Basophils %1.1%02/22/2025 4:25 PM EDT [facility]Comment:This is an appended report. These results have been appended to a previously preliminary verified report. Neutrophils Absolute (A)8.2(H)1.5 - 6.6 10*3/uL02/22/2025 4:25 PM [facility]Comment:This is an appended report. These results have been appended to a previously preliminary verified report.Lymphocytes Absolute 2.21.0 - 3.5 10*3/uL02/22/2025 4:25 PM [facility] Comment:This is an appended report. These results have been appended to a previously preliminary verified report.Monocytes Absolute0.70.0 - 0.9 10*3/uL 02/22/2025 4:25 PM [facility]:This is an appended report. These results have been appended to a previously preliminary verified report.Eosinophils Absolute0.20.0 - 0.4 10*3/uL02/22/2025 4:25 PM T [facility]This is an appended report. These results have been appended to a previously preliminary verified report.Basophils Absolute0.10.0 - 0.2 10*3/uL02/22/2025 4:25 PM [facility]:This is an appended report. These results have been appended to a previously preliminary verified report.Anisocytosis2+02/22/2025 4:25 PM T [facility]:This is an appended report. These results have been appended to a previously preliminary verified report. Hypochromia1+02/22/2025 4:25 PM [facility]: This is an appended report. These results have been appended to a previously preliminary verified report.Target Cells1+02/22/2025 4:25 PM [facility]Comment:This is an appended report. These results have been appended to a previously preliminary verified report.Elliptocytes1+ 02/22/2025 4:25 PM [facility]Comment:This is an appended report. These results have been appended to a previously preliminary verified report.Differential TypeAUTOMATED DFJWZJQMPIUV55/29/2025 4:25 PM EDT [facility]Comment:This is an appended report. These results have been appended to a previously preliminary verified report.Specimen (Source)Anatomical Location / LateralityCollection Method / VolumeCollection TimeReceived TimeBloodVenous blood / UnknownVenipuncture / Zdtlski9202/22/2025 3:40 PM EDT1 3:55 PM EDT Narrative Authorizing ProviderResult TypeResult StatusAmber Zafar TYPING BOOKKEEPER-CNPLAB BLOOD ORDERABLESFinal ResultPerforming OrganizationAddressCity/State/ZIP CodePhone Number [address] [address], [place] * Magnesium (02/22/2025 3:40 PM EDT)ComponentValueRef RangeTest MethodAnalysis TimePerformed AtPathologist SignatureMAGNESIUM2.31.8 - 2.6 mg/dL02/22/2025 4:16 PM EDPREMIER [facility]ALTH [facility] SOUTHpecimen (Source)Anatomical Location / LateralityCollection Method / VolumeCollection TimeReceived Time BloodVenous blood / UnknownVenipuncture / Bewhkps2502/22/2025 3:40 PM EDT 02/22/2025 3:55 PM EDT Narrative Authorizing ProviderResult TypeResult StatusAmber Zafar TYPING BOOKKEEPER-CNPLAB BLOOD ORDERABLESFinal ResultPerforming OrganizationAddressCity/State/ZIP CodePhone Number [address] [address], [place] * Lipase (02/22/2025 3:40 PM EDT) Only the most recent of2 resultswithin the time period is included. ComponentValueRef RangeTest MethodAnalysis TimePerformed AtPathologist Signature [id number] - 40 U/L1 4:14 PM EDTUSCARAWAS [facility]PITAL Specimen (Source)Anatomical Location / LateralityCollection Method / Volume Collection TimeReceived TimeBloodVenous blood / UnknownVenipuncture / Unknown 02/22/2025 3:40 PM EDT1 3:55 PM EDT Narrative Authorizing ProviderResult TypeResult StatusAmber Zafar TYPING BOOKKEEPER-CNPLAB BLOOD ORDERABLESFinal ResultPerforming OrganizationAddressCity/State/ZIP CodePhone Number [facility] [address] [place] [address], * (ABNORMAL) Comprehensive metabolic panel (02/22/2025 3:40 PM EDT)Component ValueRef RangeTest MethodAnalysis TimePerformed AtPathologist SignatureSODIUM [id number] - 146 mmol/L1 4:16 PM EDTUSCARAWAS HOSPITAL POTASSIUM3.4(L)3.5 - 5.0 mmol/L1 4:16 PM EDTUSCARAWAS HOSPITALCHLORIDE96(L)98 - 109 mmol/L1 4:16 PM EDTUSCARAWAS HOSPITALCARBON BBPWDOX7479 - 32 mmol/L1 4:16 PM EDT [facility]ITALANION LXA907 - 15 mmol/L1 4:16 PM EDTUSCARAWAS HOSPITALBLOOD UREA MTPXVKZA01(H)5 - 27 mg/dL 02/22/2025 4:16 PM EDTUSCARAWAS HOSPITALCREATININE1.53(H)0.40 - 1.00 mg/dL02/22/2025 4:16 PM [facility]Comment: METHOD TRACEABLE TO IDMS KFINRCUSMVWWVDW712(H)65 - 99 mg/dL02/22/2025 4:16 PM [facility]ITALCALCIUM9.28.5 - 10.5 mg/dL02/22/2025 4:16 PM EDTUSCARAWAS HOSPITALTOTAL PROTEIN7.66.0 - 8.0 g/dL 02/22/2025 4:16 PM [facility]ITALALBUMIN4.13.2 - 5.3 g/dL02/22/2025 4:16 PM EDTUSCARAWAS HOSPITALALKALINE GUOLLWCYBZW7491 - 130 U/L1 4:16 PM EDTUSCARAWAS HOSPITALAST21<=41 U/L1 4:16 PM [facility] ALT22<=31 U/L1 4:16 PM [facility] BILIRUBIN,TOTAL0.40.3 - 1.2 mg/dL02/22/2025 4:16 PM [facility]ITALEGFR Non-Race Oqzxxnrak40(L)>=60 ml/min/1.73sq.m1 4:16 PM [facility]ITALComment: eGFR not reported due to non-numeric value for Creatinine. Reported eGFR is based on the CKD-EPI 2020 equation that does not use a race coefficient. Specimen (Source)Anatomical Location / LateralityCollection Method / Volume Collection TimeReceived TimeBloodVenous blood / UnknownVenipuncture / Unknown 02/22/2025 3:40 PM EDT1 3:55 PM EDT Narrative Authorizing ProviderResult TypeResult StatusAmber Andrade TYPING BOOKKEEPER-CNPLAB BLOOD ORDERABLESFinal ResultPerforming OrganizationAddressCity/State/ZIP CodePhone Number [facility] [address] * (ABNORMAL) Basic Metabolic Panel (02/20/2025 9:08 AM EDT) Only the most recent of3 resultswithin the time period is included. ComponentValueRef RangeTest MethodAnalysis TimePerformed AtPathologist Signature [id number] - 146 mmol/L1 2:22 PM [facility] LABORATORYPOTASSIUM3.3(L)3.5 - 5.0 mmol/L1 2:22 PM [facility] GRYUIGPCVRQKYTANOK73(L)98 - 109 mmol/L1 2:22 PM [facility] LABORATORYCARBON RHZTBSO92(H)22 - 32 mmol/L1 2:22 PM [facility] LABORATORYANION GAP95 - 15 mmol/L1 2:22 PM [facility] LABORATORYBLOOD UREA OQDHSMYV125 - 27 mg/dL 02/20/2025 2:22 PM [facility] LABORATORYCREATININE1.17(H)0.40 - 1.00 mg/dL02/20/2025 2:22 PM [facility] LABORATORYComment: METHOD TRACEABLE TO IDMS XCUYVGRAETDLVZK893(H)65 - 99 mg/dL02/20/2025 2:22 PM [facility] LABORATORYCALCIUM9.68.5 - 10.5 mg/dL02/20/2025 2:22 PM [facility] LABORATORYEGFR Non-Race Mxrmkmdsx20(L)>=60 ml/min/1.73sq.m1 2:22 PM [facility] LABORATORYComment: Reported eGFR is based on the CKD-EPI 2020 equation that does not use a race coefficient. Specimen (Source)Anatomical Location / LateralityCollection Method / Volume Collection TimeReceived TimeBloodVenous blood / UnknownVenipuncture / Unknown 02/20/2025 9:08 AM EDT1 9:08 AM EDT Narrative Authorizing ProviderResult TypeResult StatusImad Jose LEIJA BLOOD ORDERABLES Final ResultPerforming OrganizationAddressCity/State/ZIP CodePhone Number [facility] [address] [place] [address], * Liver panel (02/09/2025 2:24 PM EDT)ComponentValueRef RangeTest MethodAnalysis TimePerformed AtPathologist SignatureTOTAL PROTEIN7.96.0 - 8.0 g/dL02/09/2025 2:59 PM EDTPSALEM CITY HOSPITALALBUMIN4.23.2 - 5.3 g/dL 02/09/2025 2:59 PM EDTUSCARAWAS HOSPITALBILIRUBIN,TOTAL0.70.3 - 1.2 mg/dL02/09/2025 2:59 PM EDTUSCARAWAS HOSPITALALKALINE ZSYMUIYFRFI3418 - 130 U/L1 2:59 PM EDTUSCARAWAS HOSPITALAST20<=41 U/L1 2:59 PM [facility] ALT17<=31 U/L1 2:59 PM [facility] BILIRUBIN,DIRECT0.1<=0.4 mg/dL02/09/2025 2:59 PM EDTPROMEDICA MERCY SOUTHWESTpecimen (Source)Anatomical Location / LateralityCollection Method / VolumeCollection TimeReceived TimeBloodVenous blood / UnknownVenipuncture / Hwfdfez9802/09/2025 2:24 PM EDT1 2:35 PM EDT Narrative Authorizing ProviderResult TypeResult StatusPatrick Jose Mims MDLAB BLOOD ORDERABLESFinal ResultPerforming OrganizationAddressCity/State/ZIP CodePhone Number [facility] [address] [place] [address], * Surgical Pathology (01/04/2025 9:58 AM EDT)ComponentValueRef RangeTest Method Analysis TimePerformed AtPathologist SignatureCase ReportSurgical Pathology Report ? Case: [id number] ? Authorizing Provider: ??Michael Steiner, DO ? Collected: ? 01/04/2025 0958 ? Ordering Location: ? [facility] ? Received: ?01/04/2025 1152 ? [facility] - ? Endoscopy ? Pathologist: ? Kelby Maher MD ? Specimens: ?? 1) - Duodenum, Duodenum biopsies ? 2) - Antrum, Antrum biopsies ? 3) - Stomach, hiatal hernia biopsies ? 4) - Esophagus, distal esophagus ulceration biopsies ? 01/13/2025 9:25 [facility] LABORATORYFinal Diagnosis1. Duodenal biopsies: Normal [...] intestinal metaplasia or dysplasia identified.01/13/2025 9:25 AM [facility] at 1334 EDTAddendum 4. PAS stain for fungus is negative. Immunostains for HSV and CMV are also negative. All controls are satisfactory.01/13/2025 9:25 AM [facility] LABORATORYAddendum electronically signed by Kelby Maher MD on 01/13/2025 at 0925 EDTGross Description1. Received in formalin labeled COOL, #1: Duodenum biopsies are 2 garrido bits of soft tissue, each 0.3 cm in greatest dimension. Filtered and submitted in a single cassette. (1, ns, [id number], m7) MG 2. Received in formalin labeled COOL, #2: Antrum biopsies is a single garrido bit of soft tissue, 0.2cm in greatest dimension. Filtered and submitted in a single cassette. (1, ns, [id number], m7) MG 3. Received in formalin labeled COOL, #3: Hiatal hernia biopsies are 2 garrido bits of soft tissue, ranging from 0.2-0.3 cm in greatest dimension. Filtered and submitted in a single cassette. (1, ns, [id number], m7) MG 4. Received in formalin labeled COOL, #4: Distal esophagus ulceration biopsies are 5 garrido delicatebits of soft tissue, ranging from 0.1-0.2 cm in greatest dimension. Filtered and submitted in a single cassette. (1, ns, [id number], m7) MG01/13/2025 9:25 AM [facility] LABORATORYEmbedded Images 01/13/2025 9:25 AM [facility] LABORATORYSpecimen (Source)Anatomical Location / LateralityCollection Method / VolumeCollection TimeReceived Time Tissue (Duodenum)01/04/2025 9:58 AM EDT01/04/2025 11:52 AM EDTComment:Pre-op diagnosis: microcytic anemiaTissue specimen (specimen)Mastoid antrum structure / Unknown 01/04/2025 9:59 AM EDT01/04/2025 11:52 AM EDTComment:Pre-op diagnosis: microcytic anemiaTissue specimen (specimen)Stomach structure / Gtbpsxl9601/04/2025 10:03 AM EDT01/04/2025 11:52 AM EDTComment:Pre-op diagnosis: microcytic anemiaTissue specimen (specimen)Esophageal structure / Unknown 01/04/2025 10:04 AM EDT01/04/2025 11:52 AM EDTComment:Pre-op diagnosis: microcytic anemia Narrative Authorizing ProviderResult TypeResult StatusJohn Janae Vickyumair DOPATHOLOGY/CYTOLOGY ORDERABLESEdited Result - FinalPerforming OrganizationAddressCity/State/ZIP Code Phone Number [facility] [address] [place] [address], [facility] [address] [facility] [address] [place] [address], * Pap Smear (02/18/2022 10:08 AM EDT)Specimen (Source)Anatomical Location / LateralityCollection Method / VolumeCollection TimeReceived Time02/18/2022 10:08 AM EDT1 10:09 AM EDT Narrative COPATH - 02/28/2022 1:19 PM EDT [facility] ? [address] [place] [address] ? [place] [address] ? Gynecologic Cytology Consultation ? Patient Name:MONET YORK:1960 (Age: 61)Gender:FTaken:02/18/2022eported:02/28/2022hysician(s):Ashtyn Hacktet M.D. ([phone])Copy To: Rec. #:[id number]: #[id number] Final Cytologic Interpretation ThinPrep Pap Test (Not otherwise specified): Satisfactory for evaluation. NEGATIVE FOR INTRAEPITHELIAL LESION OR MALIGNANCY. ?? jja/02/28/2022 Interpretation performed at [facility], [address] [place] [address], License number: [id number]. Electronically Signed Out By ?RAZIA Ambrosio(ASCP) Date of Last Menstrual Period: ? (None Given) Other Clinical Conditions: Z12.4 Screening for malignant neoplasm of cervix Z11.51 Screening for HPV Source of Specimen ??ThinPrep Pap Test (Not otherwise specified) ? 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 G0145 Authorizing ProviderResult TypeResult StatusAbeer [facility] Hospital MDPATHOLOGY/CYTOLOGY ORDERABLESFinal ResultPerforming OrganizationAddressCity/State/ZIP CodePhone Number [...] DateEnd Date Michael Steiner DO [address] [place] [address] PCP - GeneralInternal Medicine12/17/23
--- OUTSIDE RECORDS SUMMARY | 2025-03-27 09:36 | XMS_ITS | Encounter Summary ---
Author Organization [employer] tem Address [id number] [address] [place] [address] Care Team Providers Care Computer Installer Name Role Phone Michael Steiner DO Primary Care Provider [phone] Encounter Details DateTypeDepartmentCare Team (Latest Contact Info)Zdsqaqblopv36/18/2025Travel Social History Tobacco UseTypesPacks/DayYears UsedDateSmoking Tobacco: EukzqtKalyrabkoo843 09/1981 - mokeless Tobacco: Never Comments:5-6 cigerettes a da y Alcohol UseStandard Drinks/WeekCommentsNot Currently0 (1 standard drink = 0.6 oz pure alcohol)last use 15 years agoAHC UtilitiesAnswerDate RecordedIn the past 12 months has the [employer], gas, oil, or water [employer] threatened to shut off services in your home?No12/04/2024Social Connection and Isolation PanelAnswer Date RecordedIn a typical week, how many times do you talk on the phone with family, friends, or neighbors?Three times a week07/25/2023How often do you get together with friends or relatives?Three times a week07/25/2023How often do you attend restorationism or mandaeism services?More than 4 times per year07/25/2023o you [...] or more drinks on one occasion?Never07/25/2023HQ-2AnswerDate RecordedTotal Xnbeu89305/15/2024[facility] [place] [facility] Occup[facility] - Occupational Stress QuestionnaireAnswerDate RecordedDo you feel stress - tense, restless, nervous, or anxious, or unable to sleep at night because yourmind is troubled all the time - these days?Only a nswirj8507/25/2023Exercise Vital Sign AnswerDate RecordedOn average, how many [...] of a household?03/14/2025hildcareAnswerDate RecordedDo problems getting children's service supervisor make 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 to work or study?No12/04/2024 EmploymentAnswerDate RecordedDo you need help finding a local career center and/or a training program?12/04/2024Hunger ScreeningAnswerDate RecordedWithin the past 12 months we worried whether our food would run out before we got money to buy more.Patient Itutvekx32/19/2025Within the past 12 months the food we bought just didn't last and we didn't have money to get more.Patient Declined 03/15/2025Purpose - LifeAnswerDate RecordedI have a purpose and direction in my life.Strongly Agree07/25/2023CommentsNoSex and Gender InformationValue Date RecordedSex Assigned at DhjodRvnfic87/10/2021 8:51 AM EDTLegal SexFemale 02/16/2017 2:26 PM EDTGender AbnitixxZiqtqk90/10/2021 8:51 AM EDTSexual MpiljartkerMebkgyvb52/02/2023 8:29 PM ESTdocumented as of this encounter Plan of Treatment DateTypeDepartmentCare Team (Latest Contact Info)Zkhexkvdxvc99/12/2025 7:45 AM ESTAppointment [facility] [address] [place] [phone] documented as of this encounter Goals GoalPatient Goal TypeAssociated ProblemsRecent ProgressPatient-Stated?Author home Jimena Wilson LSW Note: Evaluation of progress towards goal: feeling better documented as of this encounter Visit Diagnoses Not on filedocumented in this encounter Additional Health Concerns AssessmentNoted TimePHQ-9 Depression Total Score: 12:36 PM EDT documented as of this encounter Care Teams Team MemberRelationshipSpecialtyStart DateEnd Date Michael Steiner DO [address] [place] [address] PCP - GeneralInternal Medicine12/17/23documented as of this encounter
--- OUTSIDE RECORDS SUMMARY | 2025-03-27 09:50 | XMS_ITS | CCD ---
Author Organization [facility] Care Team Providers Care Sheriff Sergeant Name Role Phone Hercher, Nadege L Unavailable [...] Obdulia CABRERA, Rajni Cardoso Primary Care Provider [phone] Yusunshine DO, Rajni Cardoso Primary Care Provider No Pcp, No Pcp Primary Care Provider Unavailabl e YUHAS, RAJIN L Referring Unavailable YUHAS, RAJNI L Primary Care Unavailable YUHAS, RAJNI L Referring Unavailable YUHAS, RAJNI L Primary Care Unavailable YUHAS, RAJNI L Referring Unavailable YUHAS, RAJNI L Primary Care Unavailable YUHAS, RAJNI L Referring Unavailable YUHAS, RAJNI L Primary Care Unavailable YUHAS, RAJNI L Referring Unavailable YUHAS, RAJNI L Primary Care Unavailable Ranji Steiner DO Primary Care Provider [phone] Rajni Steiner MD Primary Care Provider SYDNIE [...] Care Unavailable Yuhas DORajni Primary Care Provider [phone] Dk MIJARES, Andrius Zee Attending Unavailable Dk MIJARES, Andrius Saadia Attending Unavailable Dk MIJARES, Andrius Alexanderytheather Attending Unavailable Dk MIJARES, Andrius Alexanderytheather Attending Unavailable Dk MIJARES, Andrius Vytehather Attending Unavailable Dk MIJARES, Andrius Alexanderytheather Attending [...] Primary Care Unavailable VICKYSRAJNI Referring Unavailable VICKYS, RANJI Cardoso Primary Care Unavailable VICKYSRAJNI Admitting Unavailable VICKYS, RAJNI Cardoso Attending Unavailable VICKYS, RAJNI Cardoso Referring Unavailable VICKYS, RAJNI Cardoso Primary Care Unavailable DEBDOUGIE, IMAD M Attending Unavailable VICKYSRAJNI Referring Unavailable VICKYSRAJNI Primary Care Unavailable VCIKYS, RAJNI Cardoso Primary Care Unavailable JUAN BRUNER Attending Unavailable HARIRI, IMAD M Referring Unavailable VICKYS, RAJNI Cardoso Primary Care Unavailable VICKYS, RAJNI Cardoso Primary Care Unavailable ARTURO STOKES Attending Unavailable Allergies Allergy ClassificationReported Allergen(s)Allergy TypeDate of OnsetReaction(s) Facility (1 source)morphine; Translations: [Morphine Sulfate][facility] ([facility] sources)penicillin; [facility]ations: [penicillin[facility] ([facility] sources)Morphine; Translations: [morphine]Drug Tdjqnnn31-25-4181 Hallucinations, Other (See Comments)[facility] (20 sources)Penicillins; Translations: [Penicillins]Allergy to substance 41-49-4367RhalronhukbGrqssrqcaMem[facility] (18 sources)fentaNYL; Translations: [FENTANYL]Drug Ufbaxrt41-05-8840Mggkz (See Comments)[facility] Medications Current Medications MedicationDrug Class(es)DatesSig (Normalized)Sig (Original)acetaminophen 325 mg oral tablet (20 sources)Start: 98-52-9893gjuy 2 tablets by mouth every four hours as needed for pain and headacheacetaminophen (TYLENOL) 325 mg tablet Take 2 tablets (650 mg total) by mouth every 4 (four) hours as needed for pain or headaches. 30 tablet 07/27/2023 ActiveStart: 07-25-2023 End: 29-33-2165dwnd 1 tablet by mouth every four hours as needed for headache and hhrx614 mg, oral, Every 4 hours PRN, headaches, moderate pain - pain scale 4-6, Starting on 07/25/23at 210take 1 tablet by mouth every four hours as needed for painacetaminophen (Tylenol) 325 MG tablet Take 325 mg by mouth every 4 (four) hours if needed for mild pain [id number] 200 actuat albuterol 0.09 mg/actuat metered dose inhaler (20 sources)beta2-Adrenergic AgonistStart: 09-21-2024 End: 56-81-8967lsxg 2 puff(s) by inhalation every four hours [...] oral tablet (20 sources)Atypical AntipsychoticStart: 07-27-2023 End: 07-61-6384MGLHigeuugwc (ABILIFY) tablet 15 mgStart: 05-13-2023 End: 83-43-0937zarw 1 tablet by mouth once dailyARIPiprazole (ABILIFY) 15 mg tablet Take 1 tablet (15 mg total) by mouth nightly. 05/13/2023 ActiveStart: 12-03-8378jufc 10 mg by mouth once daily at bedtimeAripiprazole Active 10 MG PO Daily at bedtime June 22, 2018 1:00amStart: 61-51-2378sjwt 5 mg by mouth once dailyAripiprazole Active 5 MG PO Daily June 08, 2018 1:00am End: 35-06-7468bnux 1 tablet by mouth once dailyARIPiprazole (Abilify) 15 MG disintegrating tablet Take 15 mg by mouth Daily 03/17/2024 Discontinued (Med list cleanup) End: 21-89-6239wiac 2 tablets by mouth once dailyARIPiprazole (ABILIFY) 10 mg tablet Take 2 tablets (20 mg total) by mouth nightly. 0 06/01/2023 Discontinued (Duplicate Listing)take 1 tablet by mouth every twenty-four hoursAbilify 30 MG 1 tablet Orally Once a day Activeatorvastatin 80 mg oral tablet (20 sources)HMG-CoA Reductase InhibitorStart: 22-99-2297elll 1 tablet by mouth in the morningatorvastatin (LIPITOR) 80 mg tablet Indications: Atherosclerosis of knik coronary artery of knik heart without angina pectoris , Hx of hyperlipidemia Take 1 tablet (80 mg total) by mouth in the morning. 90 tablet 3 04/26/2024 ActiveStart: 53-89-6963msqz 1 tablet by mouth in the morning atorvastatin (LIPITOR) 80 mg tablet Indications: Atherosclerosis of knik coronary artery of knik heart without angina pectoris , Hx of hyperlipidemia TAKE 1 TABLET (80 MG TOTAL) BY MOUTH IN THE MORNING 90 tablet 3 04/09/2024 ActiveStart: 07-26-2023 End: 88-48-2271lgnf 80 mg by mouth once daily80 mg, oral, Daily, First dose on 07/26/23 at 0900, Look-alike/sound-alike medication - verify indication for use.Start: 04-09-2023 End: 10-07-8742uyvl 1 tablet by mouth in the morningatorvastatin (LIPITOR) 80 mg tablet Indications: Atherosclerosis of knik coronary artery of knik heart without angina pectoris , Hx of hyperlipidemia Take 1 tablet (80 mg total) by mouth in the morning. 90 tablet 3 04/26/2024 Activebenztropine mesylate 0.5 mg oral tablet (1 source)Anticholinergic, AntihistamineStart: 41-42-4149uzci 0.5 mg by mouth every six hoursBenztropine Active 0.5 MG PO Q6H 60 June 22, 2018 1:25nt080 actuat budesonide 0.16 mg/actuat / formoterol fumarate 0.0048 mg/actuat / glycopyrrolate 0.009 mg/actuat metered dose inhaler (20 sources)Corticosteroid, beta2-Adrenergic AgonistStart: 81-28-3976ddrm 2 puff(s) by inhalation in the jdhebcnswnxnmwzss-jnkvemqi-eiwacgtram (BREZTRI AEROSPHERE) 160-9-4.8 mcg/actuation HFA aerosol inhaler Indications: Chronic obstructive pulmonary disease, unspecified COPD type ([facility]-H[facility]) Inhale 2 puffs in the morning and 2 puffs before bedtime. 10.7 g 10 06/25/2023 Active End: 22-49-5533Lfnbpuk-Glycopyrrol-Formoterol (Breztri Aerosphere) 160-9-4.8 MCG/ACT aerosol Inhale 09/21/2024 Discontinued (Reorder)celecoxib 200 mg oral capsule (20 sources)Nonsteroidal Anti-inflammatory DrugStart: 02-22-2024 End: 60-68-4263grlqihbgp (CeleBREX) 200 MG capsule 02/22/2024 Active cholecalciferol [...] ActiveclonazePAM 0.5 mg oral tablet (20 sources)BenzodiazepineStart: 80-35-9758heac 1 tablet by mouth in the morning, then take 1 tablet by mouth at bedtimeclonazePAM (KlonoPIN) 0.5 mg tablet Take 1 tablet (0.5 mg total) by mouth in the morning and 1 tablet (0.5 mg total) before bedtime. 09/14/2023 ActiveStart: 07-26-2023 End: 33-38-2518ogpwpdgKYL (KlonoPIN) tablet 0.5 mgStart: 05-13-2023 End: 17-15-2279ezbazxnOZM (KlonoPIN) 0.25 mg disintegrating tablet Dissolve 1 tablet (0.25 mg total) on tongue 2 (two) times a day as needed. 0 05/13/2023 ActiveStart: 05-13-2023 End: 10-50-5076vvdvfnhVAC (KlonoPIN) 0.25 mg disintegrating tablet Dissolve 2 tablets (0.5 mg total) on tongue 2 (two) times a day as needed. 05/13/2023 09/24/2023 Discontinued (Dose adjustment)Start: 01-07-2018 End: 15-84-7146eond 0.5 mg by mouth twice dailyClonazepam Discontinued 0.5 MG PO Twice daily January 07, 2018 12:00am January 18, 2018 11:12amtake 1 tablet by mouth every twenty-four hoursKlonoPIN 0.5 MG 1 tablet Orally Once a day Activediclofenac sodium 50 mg / miSOPROStol 0.2 mg delayed release oral tablet (6 sources)Nonsteroidal Anti-inflammatory Drug, Prostaglandin E1 AnalogStart: 06-33-1625mhzp 1 tablet by mouth in the morningdiclofenac-miSOPROStol (ARTHROTEC 50) 50-200 mg-mcg EC tablet Take 1 tablet by mouth in the morningand 1 tablet before bedtime. 60 tablet 2 01/04/2025 Aeiuwhdpwmuh-dqpvyeolc-euc,al-simeth (FIRST-MOUTHWASH BLM) 57-519-007-40 mg/30mL mouthwash (6 sources)Start: 40-36-7688vhxo 5 mL by mouth four times daily as needed puafdr-ienadlomk-nkw,al-simeth (FIRST-MOUTHWASH BLM) 91-426-299-40 mg/30mL mouthwash Indications: Stomatitis Take 5 mL by mouth 4 (four) times a day as needed for mucositis or mouth/gum irritation. 119 mL 1 01/10/2025 Activedoxepin hydrochloride 75 mg oral capsule (20 sources)Tricyclic Antidepressantdoxepin (SINEquan) 75 mg capsule Active End: 60-46-2092xjiq 3 capsules by mouth once dailydoxepin (SINEquan) 25 mg capsule Take 3 capsules (75 mg total) by mouth nightly. 0 06/01/2023 Discon tinued (Duplicate Listing)empagliflozin 10 mg oral tablet (20 sources)Sodium-Glucose Cotransporter 2 InhibitorStart: 04-12-2024 End: 79-28-7763zidv 1 tablet by mouth in the morningJARDIANCE 10 mg tablet tablet Indications: Chronic heart failure with preserved ejection fraction (CMS- HCC) , Atherosclerosis of knik coronary artery of knik heart without angina pectoris TAKE 1 TABLET (10 MG) BY MOUTH IN THE MORNING 90 tablet 1 02/28/2025 ActiveStart: 09-01-2022 End: 40-64-2555guaq 1 tablet by mouth in the morningJARDIANCE 10 mg tablet tablet Indications: Chronic heart failure with preserved ejection fraction (CMS- HCC) , Atherosclerosis of knik coronary artery of knik heart without angina pectoris TAKE 1 TABLET (10 MG TOTAL) BY MOUTH IN THE MORNING 90 tablet 3 10/02/2023 Activetake 25 mg by mouth once dailyJARDIANCE 25 mg daily orally Activeezetimibe 10 mg oral tablet (20 sources)Dietary Cholesterol Absorption InhibitorStart: 07-08-2024 End: 19-46-9994hjnp 1 tablet by mouth in the morningezetimibe (ZETIA) 10 mg tablet Indications: Atherosclerotic heart disease of knik coronary arterywith other forms of angina pectoris TAKE 1 TABLET (10 MG TOTAL) BY MOUTH IN THE MORNING 90 tablet Activefolic acid 1 mg oral tablet (1 source)Start: 35-93-2502faok 1 mg by mouth once dailyFolic Acid Active 1 MG PO Daily June 22, 2018 1:00am12 hr guaiFENesin 600 mg extended release oral tablet (14 sources)Start: 76-41-8727adai 1 tablet by mouth onceguaiFENesin (MUCINEX) 600 mg tablet extended release 12hr Take 1 tablet (600 mg total) by mouth every 12 (twelve) hours. 14 tablet 12/06/2024 ActivehydrOXYzine hydrochloride 25 mg oral tablet (20 sources)AntihistamineStart: 19-17-2261dbul 1 tablet by mouth twice daily as needed for anxietyhydrOXYzine (ATARAX) 25 mg tablet Take 1 tablet (25 mg total) by mouth 2 (two) times a day as needed for anxiety. 12/06/2024 ActiveStart: 36-18-6783kazt 1 tablet by mouth once dailyhydrOXYzine HCl (Atarax) 25 MG tablet Take 25 mg by mouth Daily 02/29/2024 ActiveStart: 19-54-0025hxot 50 mg by mouth three times dailyHydroxyzine [...] oral tablet (20 sources)Mood Stabilizer, Anti-epileptic AgentStart: 72-75-3331ydco 1 tablet by mouth in the morninglamoTRIgine (LaMICtal) 150 mg tablet Take 1 tablet (150 mg total) by mouth in the morning. 10/07/2023 ActiveStart: 07-26-2023 End: 11-21-0974rgtr 100 mg by mouth once zkkqy412 mg, oral, Daily, First dose on 07/26/23 at 0900, Look-alike/sound-alike medication - verify indication for use. End: 62-12-2215sqem 4 tablets by mouth in the morninglamoTRIgine (LaMICtal) 25 mg tablet Take 4 tablets (100 mg total) by mouth in the morning. 0 06/01/2023 Discontinued (Dose adjustment)Section (1 source)Section Activelithium carbonate 450 mg extended release oral tablet (1 source)Start: 12-56-8515iexu 900 mg by mouth once daily at bedtimeLithium Carbonate Active 900 MG PO Daily at bedtime 60 June 22, 2018 1:00am methocarbamol 750 mg oral tablet (8 sources)Muscle Relaxant End: 68-51-4292zpckragezedso (Robaxin) 750 MG tablet TAKE 1 TABLET BY MOUTH EVERY 12 HOURS FOR 30 DAYS for 30 Momyoj22 hr metoprolol succinate 25 mg extended release oral tablet (17 sources)beta-Adrenergic BlockerStart: 41-67-6185gllo 1 tablet by mouth once dailymetoprolol succinate XL (TOPROL XL) 25 mg 24 hr tablet Indications: Chronic heart failure with preserved ejection fraction (CMS-HCC) , Pulmonary hypertension ([facility]-H[facility]) , Nonrheumatic tricuspid valve regurgitation , Essential hypertension , Atherosclerosis of knik coronary artery of knik heart without angina pectoris , History of four vessel coronary artery bypass graft , NSTEMI (non-ST elevated myocardial infarction) ([facility]) Take 1 tablet (25 mg total) by mouth nightly. 30 tablet 11 11/28/2024 Activemirtazapine 45 mg oral tablet (3 sources)Start: 36-58-9011nozc 45 mg by mouth once daily at bedtimeMirtazapine Active 45 MG PO Daily at bedtime June 22, 2018 1:00amStart: 01-18-2018 End: 65-98-0266spda 45 mg by mouth at bedtimeMirtazapine Discontinued 45 MG PO Bedtime January 18, 2018 12:00am June 08, 2018 11:26amStart: 01-07-2018 End: 64-89-4769edhl 30 mg by mouth at bedtimeMirtazapine Discontinued 30 MG PO Bedtime January 07, 2018 12:00am January 18, 2018 11:12am24 hr nicotine 0.875 mg/hr transdermal system (2 sources)Cholinergic Nicotinic AgonistStart: 49-30-4095Zxuaoexd Active 1 EACH TRANSDERML Daily June 22, 2018 1:00amStart: 01-18-2018 End: 00-04-9589Siavnqgz Discontinued 1 EACH TRANSDERML Daily January 18, 2018 12:00am June 08, 2018 11:26amondansetron 4 mg disintegrating oral tablet (11 sources)Serotonin-3 Receptor AntagonistStart: 59-03-1370qxwb 1 tablet by mouth every eight hours as needed for nauseaondansetron ODT (ZOFRAN ODT) 4 mg disintegrating tablet Dissolve 1 tablet (4 mg total) on tongue every 8 (eight) hours as needed for nausea for up to 10 doses. 10 tablet 02/09/2025 Active End: 26-41-2732oamp 1 tablet by mouth every eight hours as needed for nausea and vomitingondansetron (ZOFRAN) 4 mg tablet Take 1 tablet (4 mg total) by mouth every 8 (eight) hours as needed for nausea or vomiting. 0 07/27/2023 Discontinued (Stop Taking at Discharge)Oxygen (17 sources)oxygen Inhale 2 L/min continuously. Activepantoprazole 40 mg delayed release oral tablet (20 sources)Proton Pump InhibitorStart: 46-41-6255ztmq 1 tablet by mouth once daily before breakfastpantoprazole (PROTONIX) 40 mg EC tablet Indications: Gastro-esophageal reflux disease without esophagitis TAKE 1 TABLET BY MOUTH EVERY DAY IN THE MORNING BEFORE BREAKFAST 90 tablet 02/24/2025 ActiveStart: 07-01-2023 End: 91-71-6195lwkl 1 tablet by mouth once daily before breakfastpantoprazole (PROTONIX) 40 mg EC tablet Indications: Gastro-esophageal reflux disease without esophagitis Take 1 tablet (40 mg total) by mouth every morning before breakfast. 90 tablet 11/07/2024 02/24/2025 Discontinuedtake 2 tablets by mouth every twenty-four hoursPantoprazole Sodium 40 MG 2 tablets Orally Once a day Activepotassium chloride 20 meq extended release oral tablet (20 sources)Start: 83-94-7083kdnxgygpx chloride (K-TAB,KLOR-CON) 20 mEq CR tablet Take [...] Activepregabalin 100 mg oral capsule (20 sources)Start: 84-70-8576vzfw 1 capsule by mouth at bedtimepregabalin (LYRICA) 100 mg capsule Indications: Peripheral polyneuropathy Take 1 capsule (100 mg total) by mouth before bedtime. 12/06/2024 ActiveStart: 03-07-2024 End: 47-02-0725tqub 1 capsule by mouth at bedtimepregabalin (LYRICA) 100 mg capsule Indications: Peripheral polyneuropathy Take 1 capsule (100 mg total) by mouth before bedtime. 12/06/2024 ActiveStart: 01-26-2024 End: 30-96-5194ujav 1 capsule by mouth in the morning, then take 1 capsule by mouth at bedtimepregabalin (LYRICA) 50 mg capsule Indications: Peripheral polyneuropathy Take 1 capsule (50 mg total) by mouth in the morning and 1 capsule (50 mg total) before bedtime. 60 capsule 01/26/2024 03/07/2024 Discontinued (Reorder)propranolol hydrochloride 40 mg oral tablet (20 sources)beta-Adrenergic BlockerStart: 10-07-2024 End: 81-67-9642rtmc 1 tablet by mouth at bedtime, then take 1 tablet by mouth at bedtimepropranoloL (INDERAL) 40 mg tablet Take 1 tablet (40 mg total) by mouth in the morning and at bedtime. TAKE 1 TABLET (40 MG TOTAL) BY MOUTH IN THE MORNING AND BEFORE BEDTIME 11/08/2024 ActiveStart: 07-25-2023 End: 17-33-8448acfk 40 mg by mouth twice daily40 mg, oral, 2 times daily, First dose on 07/25/23 at 2115, Look-alike/sound-alike medication - verify indication for use. End: 07-45-1902sltm 1 capsule by mouth every twenty-four hours at bedtime propranolol XL (Innopran XL) 80 MG 24 hr capsule Take 80 mg by mouth at bedtime Do not crush, chew,or split. Activetake 1 tablet by mouth every twelve hours Propranolol HCl 80 MG 1 tablet Orally Twice a day Activesalmon calcitonin 200 unt/actuat nasal spray (20 sources)CalcitoninStart: 09-09-2023 End: 11-24-9785euxb 1 spray(s) nasal route in the morningcalcitonin, salmon, (Miacalcin) 200 UNIT/ACT nasal spray Administer 1 spray into affected nostril(s) in the morning. 09/09/2023 Activespironolactone 25 mg oral tablet (20 sources)Aldosterone AntagonistStart: 04-12-2024 End: 96-46-4268qape 1 tablet by mouth in the morningspironolactone (ALDACTONE) 25 mg tablet Indications: Chronic diastolic heart failure (CMS-HCC) Take1 tablet (25 mg total) by mouth in the morning. 90 tablet 3 02/06/2025 ActiveStart: 11-10-2022 End: 69-29-7548omhe 1 tablet by mouth in the morningspironolactone (ALDACTONE) 25 mg tablet Indications: Shortness of breath , Chronic heart failure with preserved ejection fraction (CMS-HCC) TAKE 1 TABLET (25 MG TOTAL) BY MOUTH IN THE MORNING 90 tablet 3 11/02/2023 ActiveSUMAtriptan 50 mg oral tablet (20 sources)Serotonin-1b and Serotonin-1d Receptor AgonistStart: 06-22-2023 End: 47-93-5093KQSCitjlacb (IMITREX) 50 mg tablet TAKE 1 TABLET BY MOUTH DIRECTED 0 06/22/2023 ActiveStart: 10-16-2021 End: 35-17-9337LEAQsdlutgw (IMITREX) 25 mg tablet Take by mouth as needed. 10/16/2021 09/24/2023 Discontinued (Duplicate Listing)SUMAtriptan (Imitrex) 25 MG tablet Take 25 mg by mouth 1 (one) time if needed for migraine May repeat dose once in 2 hours if no relief. Do not exceed 2 doses in 24 hours. Active topiramate 100 mg oral tablet (20 sources)Start: 01-04-2024 End: 49-06-2829ycen 1 tablet by mouth at bedtimetopiramate (Topamax) 100 MG tablet TAKE 1 TABLET (100 MG TOTAL) BY MOUTH IN THE MORNING AND AT BEDTIME FOR 90 DAYS. 03/30/2024 ActiveStart: 10-06-2023 End: 33-64-5049lazm 1 tablet by mouth twice dailytopiramate (TOPAMAX) 50 mg tablet Indications: Spinal stenosis of lumbar region with neurogenic talib dication take 1 tablet by mouth twice a day for 90 days 180 tablet 01/01/2024 01/04/2024 Discontinuedtake 1 tablet by mouth twice dailytopiramate (TOPAMAX) 50 mg tablet TAKE 1 TABLET BY MOUTH TWICE A DAY FOR 30 DAYS Active End: 06-88-8007rgrx 1 tablet by mouth three times dailytopiramate (TOPAMAX) 25 mg tablet Take 1 tablet (25 mg total) by mouth 3 (three) times a day. 0 08/2023 Discontinued (Dose adjustment)torsemide 20 mg oral tablet (20 sources)Loop DiureticStart: 88-72-2692bzhu 4 tablets by mouth once daily torsemide (DEMADEX) 20 mg tablet Indications: Chronic diastolic heart failure (CMS-HCC) Take 4 tablets (80 mg total) by mouth daily. 120 tablet 11 02/21/2025 ActiveStart: 02-06-2025 End: 27-10-7172quqf 2 tablets by mouth once dailytorsemide (DEMADEX) 20 mg tablet Indications: Chronic diastolic heart failure (CMS-HCC) Take 2 tablets (40 mg total) by mouth daily. 60 tablet 11 02/06/2025 02/21/2025 DiscontinuedStart: 12-15-2024 End: 02-80-5574ucdb 3 tablets by mouth once dailytorsemide (DEMADEX) 10 mg tablet Take 3 tablets (30 mg total) by mouth daily. 12/15/2024 02/06/2025 DiscontinuedStart: 24-23-9507vmfz 3 tablets by mouth once daily as needed, then take 3 tablets by mouth once daily as neededtorsemide (DEMADEX) 20 mg tablet Indications: Chronic heart failure with preserved ejection fraction (CMS-HCC) , Pulmonary hypertension (CMS-HCC) , Nonrheumatic tricuspid valve regurgitation , Essential hypertension , Atherosclerosis of knik coronary artery of knik heart without angina pectoris, History of four vessel coronary artery bypass graft , NSTEMI (non-ST elevated myocardial infarction) (CMS-HCC) Take 3 tablets (60 mg total) by mouth daily. Take 3 tablets daily. May take take an additional tablet as needed for swelling 300 tablet 3 11/28/2024 ActiveStart: 04-12-2024 End: 18-77-5687idra 4 tablets by mouth once daily in the morningtorsemide (DEMADEX) 20 mg tablet Indications: Chronic heart failure with preserved ejection fraction (CMS-HCC) Take 4 tablets in the AM by mouth daily 360 tablet 04/12/2024 07/07/2024 Discontinued (Therapy completed)Start: 42-07-3274dspl 4 tablets by mouth once daily in the morningtorsemide (DEMADEX) 20 mg tablet Indications: Chronic heart failure with preserved ejection fraction (CMS-HCC) Take 4 tablets in the AM by mouth daily 03/07/2024 ActiveStart: 11-06-2023 End: 75-43-9935gvgs 4 tablets by mouth in the morning, [...] and Thursday 438 tablet 3 01/21/2024 ActiveStart: 35-82-7457wrki 2 tablets by mouth once dailytorsemide 40 mg tablet Take 80 mg by mouth daily. 08/29/2023 ActiveStart: 07-26-2023 End: 08-99-3731nrjjetbqg (DEMADEX) tablet 80 mgStart: 49-86-8253ugyv 4 tablets by mouth once daily as [...] EVENING PRN 540 tablet 1 05/29/2023 ActiveStart: 56-25-0177yset 4 tablets by mouth in the morning, [...] 20 mg by mouth Daily Active End: 62-34-4856tlqo 1 tablet by mouth three times dailytorsemide (DEMADEX) 10 mg tablet Take 1 tablet (10 mg total) by mouth 3 (three) times a day. 12/15/2024 Discontinuedtake 2 tablets by mouth once dailyTorsemide 40 MG 2 tablets Orally Once a day ActivetraZODone hydrochloride 100 mg oral tablet (2 sources)Serotonin Reuptake InhibitorStart: 71-99-5408paar 100 mg by mouth once daily at bedtimeTrazodone Active 100 MG PO Daily at bedtime June 22, 2018 1:00amStart: 01-18-2018 End: 30-26-1232krci 100 mg by mouth once daily at bedtimeTrazodone Discontinued 100 MG PO Daily at bedtime January 18, 2018 12:00am June 08, 2018 11:26amvalsartan 40 mg oral tablet (4 sources)Angiotensin 2 Receptor BlockerStart: 05-50-6671eloj 1 tablet by mouth in the morningvalsartan (DIOVAN) 40 mg tablet Indications: Chronic diastolic heart failure (CMS-HCC) , Pulmonary hypertension (CMS-HCC) Take 1 tablet (40 mg total) by mouth in the morning. 30 tablet 11 02/06/2025 Activevitamin b12 1 mg oral tablet (20 sources)Vitamin Q33Rrxfw: 08-24-9448zmvj 1 tablet by mouth in the morning cyanocobalamin 1000 MCG tablet Indications: B12 deficiency TAKE 1 TABLET (1,000 MCG TOTAL) BY MOUTHIN THE MORNING 90 tablet 1 04/13/2024 ActiveVitamin D 50 MCG (1999 UT) (1 source)take 1 capsule by mouth once dailyVitamin D 50 MCG (1999 UT) 1 capsule Orally Once a day Activevortioxetine 10 mg oral tablet (20 sources)Start: 58-08-3044mfxg 1 tablet by mouth in the morningTRINTELLIX 10 mg tablet Take 1 tablet (10 mg total) by mouth in the morning. 10/03/2024 Active Completed/Discontinued Medications MedicationDrug Class(es)DatesSig (Normalized)Sig (Original)acetaminophen 325 mg / HYDROcodone bitartrate 5 mg oral tablet (15 sources)Opioid AgonistStart: 09-09-2023 End: 40-12-5715JWYJQoomqfq-acetaminophen (NORCO) 5-325 mg per tablet Indications: Closed wedge compression fracture of T6 vertebra with routine healing Take 1 tablet by mouth 2 (two) times a day as needed for pain.Max Daily Amount: 2 tablets 60 tablet 10/01/2023 11/02/2023 Discontinued (Therapy completed)Start: 08-29-2023 End: 93-94-2353UUWOCiaqxsr-acetaminophen (NORCO) 5-325 mg per tablet Indications: Closed [...] \[email or web address]\epic\EPIC_Reference\Orders\Respiratory Care Guidelines\CPG Bronchodilator 2020.pdfStart: 07-25-2023 End: 17-29-4015vzojgqnljxz-albuteroL (DUONEB) 0.5 mg-3 mg(2.5 mg base)/3 mL nebulizer solution 3 mLamitriptyline hydrochloride 100 mg oral tablet (9 sources)Tricyclic AntidepressantStart: 06-01-2023 End: 45-91-1275yijy 0.5 tablet by mouth once dailyamitriptyline (ELAVIL) 100 mg tablet Take 0.5 tablets (50 mg total) by mouth nightly. 0 06/01/2023 07/01/2023 Discontinued (Therapy completed)Start: 10-16-2021 End: 97-04-4378terd 1 tablet by mouth once dailyamitriptyline (ELAVIL) 100 mg tablet Take 1 tablet (100 mg total) by mouth nightly. 0 10/16/2021 06/01/2023 Discontinuedapixaban 5 mg oral tablet (20 sources)Factor Xa InhibitorStart: 08-31-2023 End: 94-52-5509hewq 2 tablets by mouth twice daily, then take 1 tablet by mouth twice dailyELIQUIS DVT-PE TREAT 30D START 5 mg (74 tabs) tablets,dose pack tablet TAKE 2 TABLETS (10 MG) BY MOUTH 2 TIMES A DAY FOR 7 DAYS, THEN 1 TABLET 2 TIMES A DAY FOR 21 DAYS 08/31/2023 09/30/2023 DiscontinuedStart: 60-23-0691zayr 2 tablets by mouth twice daily, then take 1 tablet by mouth twice dailyELIQUIS DVT-PE TREAT 30D START 5 mg (74 tabs) tablets,dose pack tablet TAKE 2 TABLETS (10 MG) BY MOUTH 2 TIMES A DAY FOR 7 DAYS, THEN 1 TABLET 2 TIMES A DAY FOR 21 DAYS 08/31/2023 ActiveStart: 08-29-2023 End: 62-05-5299mzrr 2 tablets by mouth twice daily, then take 1 tablet by mouth twice dailyEliquis DVT/PE Starter Pack 5 MG tablet therapy pack TAKE 2 TABLETS (10 MG) BY MOUTH 2 TIMES A DAY FOR 7 DAYS, THEN 1 TABLET 2 TIMES A DAY FOR 21 DAYS 08/31/2023 03/17/2024 Discontinued (Med list cleanup)Start: 08-29-2023 End: 88-24-7307hfnc 1 tablet by mouth in the morning, [...] Inhibitor, Nonsteroidal Anti-inflammatory Drug Start: 07-26-2023 End: 60-92-6954tzkt 81 mg by mouth once daily81 mg, oral, Daily, First dose on 07/26/23 at 0900, Do not crush or chew.brexpiprazole 4 mg oral tablet (1 source)Atypical AntipsychoticStart: 01-07-2018 End: 38-83-8079yvaz 1 tablet by mouth once daily in the morningBrexpiprazole (Rexulti) 4 mg tablet Discontinued 4 MG PO Every morning January 07, 2018 12:00amS2017 11:12ambusPIRone hydrochloride 10 mg oral tablet (1 source)Start: 01-18-2018 End: 59-34-9700nakg 20 mg by mouth three times dailyBuspirone Discontinued 20 MG PO Three times daily 180 January 18, 2018 12:00am June 08, 2018 11:26amcefTRIAXone 1000 mg injection (1 source)Cephalosporin AntibacterialStart: 07-25-2023 End: 15-64-3515kplJMRUWblk (ROCEPHIN) IVPB 1000 mg/50 mL in iso-osmotic dextrose (20 mg/mL premix)clindamycin 150 mg oral capsule (12 sources)Lincosamide Antibacterial End: 34-10-9715mnjc 1 capsule by mouth three times dailyclindamycin (CLEOCIN) 150 mg capsule Take 1 capsule (150 mg total) by mouth 3 (three) times a day. 0 11/02/2023 Discontinued (Therapy completed)cyclobenzaprine hydrochloride 10 mg oral tablet (20 sources)Muscle RelaxantStart: 12-24-2023 End: 59-42-0517zsppbadknknyarw (FLEXERIL) 10 mg tablet 12/24/2023 07/07/2024 Discontinued (Therapy completed)Start: 09-10-2023 End: 79-79-3110ruqq 1 tablet by mouth twice daily as needed for pain cyclobenzaprine (Fexmid) 7.5 MG tablet Indications: Radiculopathy, lumbosacral region TAKE 1 TABLETBY MOUTH TWICE A DAY NEEDED FOR LOWER BACK PAIN 60 tablet 1 09/10/2023 01/12/2024 Discontinued (Med list cleanup)Start: 16-55-0011lgkz 1 tablet by mouth twice daily as [...] gel (20 sources)Nonsteroidal Anti-inflammatory DrugStart: 11-04-2023 End: 95-67-8639hafdxqqagf sodium (VOLTAREN) 1 % gel Indications: Fibromyalgia syndrome APPLY 2 G TOPICALLY IN THE MORNING AT AT NOON IN THE EVENING AND BEFORE BEDTIME 100 g 2 11/04/2023 10/07/2024 Discontinued (Patient Stopped On Own) Start: 07-01-2023 End: 51-03-4772qxrevkigao sodium (VOLTAREN) 1 % gel Indications: Fibromyalgia syndrome Apply 2 g topically in the morning and 2 g at noon and 2 g in the evening and 2 g before bedtime. 100 g 2 07/01/2023 ActiveStart: 06-14-2023 End: 49-15-4009gxbt 1 tablet by mouth twice daily as [...] oral capsule (9 sources)Histamine-1 Receptor Antagonist End: 90-32-1523bdrw 1 capsule by mouth every six hours as neededdiphenhydrAMINE (BENADRYL) 50 mg capsule Take 1 capsule (50 mg total) by mouth every 6 (six) hours as needed for itching. 0 07/27/2023 Discontinued (Stop Taking at Discharge)Benadryl Activedoxycycline hyclate 100 mg oral capsule (20 sources)Tetracycline-class DrugStart: 09-24-2023 End: 03-98-8923xpcn 1 capsule by mouth in the morning, then take 1 capsule by mouth at bedtimedoxycycline (VIBRAMYCIN) 100 mg capsule Indications: Community acquired pneumonia, unspecified laterality Take 1 capsule (100 mg total) by mouth in the morning and 1 capsule (100 mg total) before bedtime. Do all this for 7 days. 14 capsule 09/24/2023 09/30/2023 Discontinued (Therapy completed) Start: 07-24-2023 End: 18-22-7438hobspnvoqxo (VIBRAMYCIN) 100 mg capsule 08/01/2023 ActiveStart: 05-18-2023 End: 58-14-9213mjte 1 capsule by mouth in the morning, then take 1 capsule by mouth at bedtimedoxycycline (VIBRAMYCIN) 100 mg capsule Take 1 capsule (100 mg total) by mouth in the morning and 1capsule (100 mg total) before bedtime. Do all this for 10 days. 20 capsule 0 05/18/2023 05/28/2023 Active End: 79-14-3716sqqwbfqcnah (Vibramycin) 100 MG capsule Take 100 mg by mouth in the morning and 100 mg before bedtime. Take with at least 8 ounces (large glass) of water, do not lie down for 30 minutes after. 01/12/2024 Discontinued (Med list cleanup)0.4 ml enoxaparin sodium 100 mg/ml prefilled syringe (1 source)Low Molecular Weight HeparinStart: 07-26-2023 End: 49-78-7465uoxlzf 40 mg by subcutaneous injection once daily40 mg, subcutaneous, Daily, First dose on 07/26/23 at 0600, Look-alike/sound-alike medication - verify indication for use.ferrous sulfate 325 mg oral tablet (12 sources)Start: 01-05-2023 End: 67-69-8668tqnjpeh sulfate 325 (65 FE) mg tablet 1 tablet (325 mg total) in the morning and 1 tablet (325 mg total) in the evening. Take with meals. 0 01/05/2023 07/01/2023 Discontinued (Side effects)ferrous sulfate 325 (65 Fe) MG tablet TAKE 1 TABLET BY MOUTH TWICE A DAY FOR 30 DAYS for 30 Activefurosemide 40 mg oral tablet (5 sources)Loop DiureticStart: 11-07-2024 End: 90-25-3452vkxq 1 tablet by mouth once dailyfurosemide (LASIX) 40 mg tablet Indications: Venous insufficiency of both lower extremities Take 1 tablet (40 mg total) by mouth daily. 30 tablet 2 11/07/2024 11/28/2024 DiscontinuedStart: 10-24-2024 End: 80-24-6638htwt 1 tablet by mouth once dailyfurosemide (LASIX) 40 mg tablet Indications: Venous insufficiency of both lower extremities Take 1 tablet (40 mg total) by mouth daily for 5 days. 5 tablet 10/24/2024 10/29/2024 ActiveStart: 07-25-2023 End: 06-21-9529dcxorualxx (LASIX) injection 40 mggabapentin 100 mg oral capsule (20 sources)Anti-epileptic AgentStart: 07-25-2023 End: 90-78-4148vebv 200 mg by mouth three times kssel636 mg, oral, 3 times daily, First dose on 07/25/23 at 2200, Look-alike/sound-alike medication - verify indication for use.Start: 01-05-2023 End: 17-48-0607cxpb 2 capsules by mouth three times dailygabapentin (Neurontin) 100 MG capsule Indications: Polyneuropathy, unspecified TAKE 2 CAPSULES BY MOUTH 3 TIMES A DAY FOR 30 DAYS 180 capsule 2 08/17/2023 01/12/2024 Discontinued (Med list cleanup)lidocaine 0.05 mg/mg medicated patch (4 sources)Antiarrhythmic, Amide Local AnestheticStart: 08-29-2023 End: 75-76-4469ihnae 1 dose transdermal route every twelve hours in the morning lidocaine (LIDODERM) 5 % Place 1 patch on the skin in the morning. Remove & Discard patch within 12 hours or as directed by MD. 5 patch 08/29/2023 09/24/2023 Discontinued (Therapy completed)lurasidone hydrochloride 40 mg oral tablet (3 sources)Atypical AntipsychoticStart: 01-18-2018 End: 47-58-7090ieku 1 tablet by mouth once dailyLurasidone (Latuda) 40 mg tablet Discontinued 60 MG PO Daily with supper June 08, 2018 11:26am June 08, 2018 12:03pmStart: 01-07-2018 End: 72-45-7752phox 1 tablet by mouth once dailyLurasidone (Latuda) 20 mg tablet Discontinued 20 MG PO Daily with supper January 07, 2018 12:00am January 18, 2018 11:12am1 ml methylPREDNISolone acetate 40 mg/ml injection (9 sources)CorticosteroidStart: 01-26-2024 End: 91-35-0102eokdefSZTJLNEhdsyd acetate (DEPO-Medrol) injection 40 mgStart: 01-26-2024 End: 55-43-315772 mg, Intra-articular, Once PRN Procedure, Starting on Thu01/26/24 at 1350, For 1 doseStart: 12-29-2023 End: 92-78-2471kvxwieDTWZQTVgwjhm acetate (DEPO-Medrol) injection 40 mgStart: 12-29-2023 End: 87-73-979384 mg, Injection, Once PRN Procedure, Starting on Thu12/29/23 at 1458, For 1 doseStart: 07-25-2023 End: 77-80-318580 mg, intravenous, Every 12 hours scheduled, First dose on 07/25/23 at 2115, May alter blood glucose or insulin requirements. Look-alike/sound-alike medication - verify indication for use.12 hr orphenadrine citrate 100 mg extended release oral tablet (3 sources)Muscle RelaxantStart: 10-20-2023 End: 04-67-4394epsi 1 tablet by mouth twice daily as needed for painorphenadrine (NORFLEX) 100 mg 12 hr tablet Take 1 tablet (100 mg total) by mouth 2 (two) times a day as needed for muscle spasms or pain. 10 tablet 10/20/2023 11/02/2023 Discontinued (Formulary change)oxyCODONE hydrochloride 5 mg oral tablet (8 sources)Opioid AgonistStart: 08-09-2023 End: 37-34-3161vxzt 1 tablet by mouth every eight hours as needed for pain oxyCODONE (ROXICODONE) 5 mg immediate release tablet Indications: Acute right hip pain Take 1 tablet (5 mg total) by mouth every 8 (eight) hours as needed for pain for up to 2 days. Max Daily Amount:15 mg 6 tablet 08/09/2023 08/11/2023 End: 52-03-0046tdoEJFZIN (Oxy-IR) 5 MG immediate release capsule Take 5 mg by mouth 01/12/2024 Discontinued (Med list cleanup)prazosin 1 mg oral capsule (1 source)alpha-Adrenergic BlockerStart: 01-18-2018 End: 01-67-5779ueer 2 mg by mouth twice dailyPrazosin Discontinued 2 MG PO Twice daily 120 January 18, 2018 12:00am June 08, 2018 11:26ampredniSONE 20 mg oral tablet (7 sources)Start: 09-24-2023 End: 87-69-6957nqbx 1 tablet by mouth in the morningpredniSONE (DELTASONE) 20 mg tablet Indications: Community acquired pneumonia, unspecified laterality Take 1 tablet (20 mg total) by mouth in the morning for 7 days. 7 tablet 09/24/2023 09/30/2023 Discontinued (Therapy completed)Start: 84-91-7996dapp 2 tablets by mouth once daily at breakfastpredniSONE (DELTASONE) 20 mg tablet Take 2 tablets (40 mg total) by mouth daily with breakfast. 10 tablet 07/28/2023 ActiveStart: 07-28-2023 End: 03-88-4126andggrESNF (DELTASONE) tablet 40 mgrisperiDONE 1 mg oral tablet (1 source)Atypical AntipsychoticStart: 06-08-2018 End: 69-33-5952lfgk 1 mg by mouth once dailyRisperidone Discontinued 1 MG PO Daily June 08, 2018 1:00am June 22, 2018 9:46qq215 ml sodium chloride 9 mg/ml prefilled syringe (4 sources)Start: 07-25-2023 End: mL, intravenous, Every 12 hours scheduled, First dose on 07/25/23 at 2115Start: 07-25-2023 End: mL, intravenous, As needed, line care, before and after each intermittent use, Starting on 07/25/23 at art: 07-25-2023 End: 99-63-7523txce 20 mL intravenously every hour as zhjjup62 mL/hr, intravenous, Continuous PRN, to maintain patency of lines, Starting on 07/25/23 at art: 07-25-2023 End: 11-05-4843hkvn 25 mL intravenously every hour as mL, intravenous, at 100 mL/hr, Administer over 15 Minutes, As needed, line care, line care after IVPB administration, Starting on 07/25/23 at [id number] hr venlafaxine 75 mg extended release oral capsule (20 sources)Serotonin and Norepinephrine Reuptake InhibitorStart: 03-14-2023 End: 72-65-8642umsu 1 capsule by mouth once daily in the morningvenlafaxine XR (EFFEXOR XR) 75 mg 24 hr capsule TAKE 1 CAPSULE BY MOUTH EVERY DAY IN THE MORNING 03/14/2023 ActiveStart: 03-14-2023 End: 17-93-9474lzaietfexij XR (EFFEXOR XR) 75 mg 24 hr capsule 03/14/2023 10/07/2024 Discontinued (Discontinued byanother clinician)Start: 10-17-2021 End: 66-01-3014dwlc 1 capsule by mouth every twenty-four hours [...] [Diaphragmatic hernia without obstruction or gangrene]Onset: 11-07-2024 15-67-6304QzruiultKrcwkapvd pain (4 sources)Right inguinal pain; Translations: [Right lower quadrant pain]Onset: 495132-63-1330FtbuoopeTavws and unspecified renal failure (5 sources)Acute injury of kidney; Translations: [Acute kidney failure, unspecified]Onset: 759697-13-1967EmhkhbssQdhjd myocardial infarction (20 sources)Myocardial infarction; Translations: [Non-ST elevation (NSTEMI) myocardial infarction]Onset: 290390-34-5143FuvpubpAaotclu disorders (20 sources)Posttraumatic stress disorder; Translations: [Post-traumatic stress disorder, unspecified]Onset: 08-28-2015 Resolved: 042163-65-7236PzhdwfmVpwngjuao and vision defects (20 sources)Visual impairment; Translations: [Unspecified visual loss]Onset: 421732-38-9655HetbqzpOxzjrob kidney disease (20 sources)Chronic kidney disease stage 3A ; Translations: [Stage 3a chronic kidney disease ([facility])]Onset: 07-07-2024 Resolved: 108302-41-3086DpdwsohXypeahq kidney disease (3 sources)Chronic kidney disease; Translations: [Chronic kidney disease, stage 3a]Onset: 29-87-5525Fhlzvmx obstructive pulmonary disease and bronchiectasis (20 sources)Chronic obstructive lung disease; Translations: [Chronic obstructive pulmonary disease, unspecified]Onset: 582583-07-8077TickekhPmsoffwhmi associated with dizziness or vertigo (1 source)DizzinessOnset: 75-85-7281QecyrxcpHpqupqohlx heart failure; nonhypertensive (20 sources)Chronic heart failure co-occurrent with normal ejection fraction; Translations: [Chronic diastolic (congestive) heart failure]Onset: 02-27-2022 Resolved: 177248-45-3163NtuehoeZhoygbwt atherosclerosis and other heart disease (20 sources)Coronary arteriosclerosis; Translations: [Atherosclerotic heart disease of [place] coronary artery without angina pectoris]Onset: 05-08-2013 Resolved: 717849-57-1467VtwbpfqOmgkpeeb atherosclerosis and other heart disease (9 sources)Aortocoronary bypass graft present; Translations: [Presence of aortocoronary bypass graft]Onset: 04-29-2023 Resolved: 639960-70-1503LbirqdffPafzzljaxi and other anemia (9 sources)Microcytic anemia; Translations: [Iron deficiency anemia, unspecified]Onset: 070513-65-5130JtsnauqkScziqubjad and other anemia (2 sources)Iron deficiency anemia, unspecified; Translations: [Iron deficiency anemia, unspecified]Onset: 93-29-7686MzvhtywsQkgcxrqt mellitus with complications (2 sources)Type 2 diabetes mellitus; Translations: [Type 2 diabetes mellitus with diabetic chronic kidney disease]Onset: hronic Esophageal disorders (20 sources)Gastroesophageal reflux disease; Translations: [Gastro-esophageal reflux disease without esophagitis]Onset: 687207-99-1609SfnuixiJaojkmrqu hypertension (20 sources)Essential hypertension; Translations: [Essential (primary) hypertension]Onset: 436735-16-6115HkipsxhHodgdisf; including migraine (13 sources)Migraine; Translations: [Migraine, unspecified, not intractable, without status migrainosus]Onset: 643366-37-6304RdmjhxpFvmqh valve disorders (20 sources)Tricuspid incompetence, non-rheumatic ; Translations: [Nonrheumatic tricuspid (valve) insufficiency]Onset: 662109-15-6552XwzasakFzlgyqw and fatigue (20 sources)Asthenia; Translations: [Weakness]Onset: 05-28-2023 Resolved: 005238-17-7995LxlrqaujTgle disorders (20 sources)Bipolar II disorder, most recent episode major depressive; Translations: [Bipolar II disorder]Onset: 775620-91-2022DomohhnMphaav and vomiting (5 sources)Nausea and vomiting; Translations: [Nausea with vomiting, unspecified]Onset: 873144-63-2694HljwteviEheifratvcd deficiencies (13 sources)Vitamin D deficiency; Translations: [Vitamin D deficiency, unspecified]Onset: 435285-88-5796FqfwaedNrhbatgfguaydr (20 sources)Primary osteoarthritis, left shoulder; Translations: [Arthropathy, unspecified, shoulder region]Onset: 299750-76-1995WyoboggHzcdu aftercare (1 source)Encounter for therapeutic drug level monitoring; Translations: [Encounter for therapeutic drug level monitoring]Onset: 95-83-2821LtuozddeNatap aftercare (1 source)Other [place] (current) drug therapy; Translations: [Other [place] [facility] (current) drug therapy]Onset: 48-56-8311LxjslxfkVvfhn circulatory disease (1 source)Orthostatic hypotension; Translations: [Orthostatic hypotension] 35-88-5340TiahlwesShvwp connective tissue disease (1 source)Trochanteric bursitis, left hipEpisodicOther connective tissue disease (6 sources)Myofascial pain syndrome; Translations: [Myalgia, unspecified site] 18-80-7791CsvslxkfEqdcm connective tissue disease (3 sources)Fibromyalgia; Translations: [Fibromyalgia]12-02-8770CczeqrvqZwgme connective tissue disease (2 sources)Tendonitis of right patellar tendon; Translations: [Patellar tendinitis, right knee]92-31-4444DfrmzlpoCfmyi connective tissue disease (2 sources)Patellar tendinitis, right knee; Translations: [Patellar tendinitis, right knee]Onset: 13-11-4351YkhsazpcNotrg diseases of veins and lymphatics (4 sources)Venous insufficiency of leg; Translations: [Venous insufficiency (chronic) (peripheral)]29-81-6026DahoiofpFzvpw diseases of veins and lymphatics (1 source)Venous insufficiency (chronic) (peripheral); Translations: [Venous insufficiency (chronic) (peripheral)]Onset: 39-44-2592GmhkbnewZbava liver diseases (20 sources)Disease of liver; Translations: [Liver disease, unspecified]Onset: 147858-29-1984AmihmklDbcwk lower respiratory disease (1 source)Acute respiratory distressOnset: 10-93-2458CbrrxdzjDnohl lower respiratory disease (1 source)Shortness of breath; Translations: [Shortness of breath]Onset: 46-75-1877ZrllmcudXasxh lower respiratory disease (1 source)Dyspnea, unspecified; Translations: [Dyspnea, unspecified]Onset: 51-03-2932CatjnsycQiqdy nervous system disorders (2 sources)Polyneuropathy, unspecified; Translations: [Polyneuropathy, unspecified]Onset: 57-46-2194RarkyfpTxjri non-traumatic joint disorders (2 sources)Pain in left shoulder; Translations: [Pain in joint, shoulder region] 88-26-0297RjicuslbXvtbb nutritional; endocrine; and metabolic disorders (13 sources)Obesity caused by energy imbalance; Translations: [Morbid (severe) obesity due to excess calories]Onset: 177068-39-8813MjkhghvFmuhb nutritional; endocrine; and metabolic disorders (20 sources)Body mass index 30+ - obesity; Translations: [Obesity, unspecified] Onset: 01-30-2020 Resolved: 965555-20-2708LshvpscMtgvu nutritional; endocrine; and metabolic disorders (1 source)Body mass index (BMI) 40.0-44.9, adult; Translations: [Body mass index (BMI) 40.0-44.9, adult]Onset: 26-26-8693DiysfeuTwzosswehwz disorders (13 sources)Borderline personality disorder; Translations: [Borderline personality disorder]Onset: 219566-89-2085AnnehsxXbrmmwivs (except that caused by tuberculosis or sexually transmitted disease) (20 sources)Pneumonia; Translations: [Pneumonia, unspecified organism]Onset: 04-15-2023 Resolved: 529171-87-1945FjwelnwqYzbpzcicc heart disease (20 sources)Pulmonary hypertension; Translations: [Pulmonary hypertension, unspecified]Onset: 962020-60-2590FjuagkiVvjvansg codes; unclassified (20 sources)Obstructive sleep apnea syndrome; Translations: [Obstructive sleep apnea (adult) (pediatric)]Onset: 638810-77-8426SdebhcxYjlzcjue codes; unclassified (1 source)Sleep related hypoxemia; Translations: [Sleep related hypoventilation in conditions classified elsewhere]76-79-1757DkqvswiGotjdxyo codes; unclassified (1 source)Obstructive sleep apnea (adult) (pediatric); Translations: [Obstructive sleep apnea (adult) (pediatric)]Onset: 97-60-1250OccgmeaDipijpxk codes; unclassified (1 source)EdemaOnset: 01-19-2611JtmkomoqYuuonuwelyi failure; insufficiency; arrest (adult) (20 sources)Chronic respiratory failure; Translations: [Chronic respiratory failure with hypoxia]Onset: 052692-19-9198QygqlgiGdimptupivt; intervertebral disc disorders; other back problems (20 sources)Bilateral inflammation of sacroiliac joint; Translations: [Sacroiliitis, not elsewhere classified]Onset: 07-07-2024 Resolved: 10-99-3350NedcbvkVhlwnjwfj-related disorders (20 sources)Cannabis abuse; Translations: [Cannabis abuse, uncomplicated]Onset: 10-16-2020 Resolved: 962620-90-9595QpsvqhxLqabxuisgad injury; contusion (1 source)Contusion of lower leg; Translations: [Contusion of unspecified lower leg, initial encounter]34-04-1788AopxsdgdCzovoeiojjpv (1 source)Low back pain, unspecified; Translations: [Low back pain, unspecified] Onset: 49-82-5217Uvcnolnldopd (1 source)Chronic heart failure co-occurrent with normal ejection fraction 06-08-6578Oldsdmjtomep (2 sources)Autogenerated ProblemOnset: 358852-37-5911Khrxtupqlzxe (1 source)Controlled SubstanceOnset: 16-32-2107Hfsvpsnyebli (1 source)ErrorOnset: 74-57-1574Jcqlvnebpfsu (1 source)illOnset: 12-03-2024 Past or Other Problems Problem ClassificationProblemDateDocumented DateEpisodic/ChronicCardiac dysrhythmias (6 sources)Ventricular tachycardia; Translations: [Ventricular tachycardia] Onset: 09-20-2024 Resolved: 602044-79-3378EuzrtgvVzuygvgbbizad of surgical procedures or medical care (6 sources)Non-healing surgical wound; Translations: [Other complications of procedures, not elsewhere classified, initial encounter]Onset: 01-14-2023 17-13-9132AtymfpacOahetzolfs and other anemia (19 sources)Iron deficiency anemia; Translations: [Iron deficiency anemia, unspecified]Onset: 611031-59-5882LzmjxxcpGcokpsxr, dementia, and amnestic and other cognitive disorders (20 sources)Dementia; Translations: [Unspecified dementia, mild, without behavioral disturbance, psychotic disturbance, mood disturbance, and anxiety] Onset: 10-21-2022 Resolved: 633295-37-3392AliynnmZynswszm mellitus without complication (20 sources)Hyperglycemia; Translations: [Hyperglycemia, unspecified]Onset: 233196-12-1407AqjnvuldImntjmirn of lipid metabolism (7 sources)Hyperlipidemia; Translations: [Hyperlipidemia, unspecified]Onset: 04-29-2023 Resolved: 969807-93-0164NtdzcarFqaqa and electrolyte disorders (20 sources)Hypokalemia; Translations: [Hypokalemia]Onset: 08-14-2020 Resolved: 662652-36-9965XfeiwqhzQbfqlgfx; including migraine (17 sources)Chronic headache disorder; Translations: [Chronic headache]Onset: 003917-77-7998MnzyzpzrGnff disorders (20 sources)Mood disordersOnset: 01-04-2024 Resolved: 966903-72-3155Oyjimnitpxy deficiencies (5 sources)Cobalamin deficiency; Translations: [Deficiency of other specified B group vitamins]Onset: 427036-23-4599VocoolbpPvcua circulatory disease (7 sources)Low blood pressure; Translations: [Other hypotension]Onset: 08-14-2020 Resolved: 906411-85-3891ZddicgzdEglbk connective tissue disease (13 sources)Muscle weakness; Translations: [Muscle weakness (generalized)]Onset: 700713-75-3869AvmhexauLomvd diseases of kidney and ureters (6 sources)Acute renal insufficiency; Translations: [Disorder of kidney and ureter, unspecified]Onset: 655197-28-9818QgfqtsdtWkrfh fractures (20 sources)Fracture of sixth thoracic vertebra; Translations: [Wedge compression fracture of T5-T6 vertebra, subsequent encounter for fracture with routine healing]Onset: 381632-12-2036IyavquisVtuek fractures (2 sources)Compression fracture of thoracic spine; Translations: [Wedge compression fracture of T7-T8 vertebra, subsequent encounter for fracture with routine healing]39-42-6837FvpctrrgSbxcu inflammatory condition of skin (8 sources)Psoriasis; Translations: [Psoriasis, unspecified]Onset: 05-02-2023 Resolved: 463239-09-4937PyibzscCopgm injuries and conditions due to external causes (6 sources)Injury of breast; Translations: [Unspecified injury of thorax, initial encounter]Onset: 539938-38-7114TvngyouvOuwmy lower respiratory disease (8 sources)Solitary nodule of lung; Translations: [Solitary pulmonary nodule] Onset: 04-29-2023 Resolved: 250249-34-2232EmbrxyerYisln lower respiratory disease (20 sources)Dyspnea; Translations: [Shortness of breath]Onset: 11-05-2021 Resolved: 195084-79-6385EqjyvqzvSspzu lower respiratory disease (1 source)Hypoxia; Translations: [Hypoxemia]42-81-3769QpptxgbjFhfpz nervous system disorders (8 sources)Difficulty walking; Translations: [Difficulty in walking, not elsewhere classified]Onset: 04-28-2023 Resolved: 524594-47-4453DzpcuvoCewkm nervous system disorders (15 sources)Polyneuropathy; Translations: [Polyneuropathy, unspecified]Onset: 04-29-2023 Resolved: 884137-90-6558UolbuvpTqkvm nervous system disorders (1 source)Ataxia, unspecified; Translations: [Ataxia, unspecified]Onset: 57-59-0214BunvmfmpGmjnj nutritional; endocrine; and metabolic disorders (20 sources)Body mass index 40+ - severely obese; Translations: [Body mass index (BMI) 40.0-44.9, adult]Onset: 06-01-2023 Resolved: 426957-73-7556VpwddynLjdxw nutritional; endocrine; and metabolic disorders (20 sources)H/O: raised blood lipids; Translations: [Personal history of other endocrine, nutritional and metabolic disease]Onset: 787429-64-9453Fnnzqhjz Pathological fracture (2 sources)Pathological fracture of vertebra due to osteoporosis; Translations: [Other osteoporosis with current pathological fracture, vertebra(e), subsequent encounter for fracture with routine healing]37-26-6089PtrhozvkCpdhaxvvd heart disease (20 sources)Acute pulmonary embolism; Translations: [Other pulmonary embolism without acute cor pulmonale]Onset: 08-28-2023 Resolved: [id number] codes; unclassified (8 sources)Dependence on enabling machine or device; Translations: [Dependence on other enabling machines and devices]Onset: 04-29-2023 Resolved: [id number] codes; unclassified (20 sources)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; Translations: [Dependence on other enabling machines and devices]Onset: 10-21-2022 Resolved: [id number] codes; unclassified (1 source)Viral syndrome; Translations: [Other general symptoms and signs] 01-11-5837KbyzxwplQtgimjdloyb failure; insufficiency; arrest (adult) (20 sources)Acute respiratory failure, unspecified whether with hypoxia or hypercapnia; Translations: [Acute hypoxemic and hypercapnic respiratory failure] Onset: 04-14-2023 Resolved: [id number] and history of mental health and substance abuse codes (20 sources)Ex-smoker; Translations: [Personal history of nicotine dependence] Onset: 09-26-2022 Resolved: 093764-60-7118EhlipkuoMlcay and face fractures (20 sources)Fracture of tooth ; Translations: [Fracture of tooth (traumatic), initial encounter for closed fracture]Onset: [id number] Spondylosis; intervertebral disc disorders; other back problems (20 sources)Spinal stenosis, lumbar region without neurogenic claudication; Translations: [Low back pain]Onset: 95-39-4742PwqzpzyzQyvlmjjxrqas (1 source)Bilateral low back pain, unspecified chronicity, unspecified whether sciatica present M54.50Viral infection (20 sources)Disease caused by 2019-nCoV; Translations: [COVID-19]Onset: 04-15-2023 Resolved: [id number] Results Test NameValueInterpretationReference RangeFacilityCBC WITH AUTO DIFFERENTIALon 61-63-0615GZLKBFFUU ABSOLUTE COUNT (10*3/UL) BY AUTOMATED COUNT0.1 10*3/uLNormal 0.0-0.2[facility] on above:Result Comment: This is an appended report. These results have been appended to a previously preliminary verified report.Performed By: #### CMP #### [facility] ([address] [place] [address] VIRBASOPHILS RELATIVE PERCENT BY AUTOMATED COUNT1.1 %Normal [facility] on above:Result Comment: This is an appended report. These results have been appended to a previously preliminary verified report.Performed By: #### CMP #### [address] [place] [address] VIRCELLAVISION ANISOCYTOSIS IN BLOOD BY LIGHT MICROSCOPY2+ NormalProNex[facility] on above:Result Comment: This is an appended report. These results have been appended to a previously preliminary verified report.Performed By: #### CMP #### [facility] ([address] [place] [address] VIRCELLAVISION DIFFERENTIAL TYPEAUTOMATED DIFFERENTIALNormal [facility] on above:Result Comment: This is an appended report. These results have been appended to a previously preliminary verified report.Performed By: #### CMP #### [facility] ([address] [place] [address] VIRCELLAVISION ELLIPTOCYTES IN BLOOD BY LIGHT MICROSCOPY1+ NormalProNexus [facility] on above:Result Comment: This is an appended report. These results have been appended to a previously preliminary verified report.Performed By: #### CMP #### [address] [place] [address] VIRCELLAVISION HYPOCHROMIA IN BLOOD BY LIGHT MICROSCOPY1+ NormalPaulding [facility] Hospital on above:Result Comment: This is an appended report. These results have been appended to a previously preliminary verified report.Performed By: #### CMP #### [facility] ([address] [address] VIRCELLAVISION TARGET CELLS IN BLOOD BY LIGHT MICROSCOPY1+ NormalPaulding County Hospital on above:Result Comment: This is an appended report. These results have been appended to a previously preliminary verified report.Performed By: #### CMP #### [facility] ([address] [address] VIREosinophils (Bld) [#/Vol]0.2 10*3/uLNormal0.0-0.4[facility] on above:Result Comment: This is an appended report. These results have been appended to a previously preliminary verified report. Performed By: #### CMP #### [address] [address] VIREOSINOPHILS RELATIVE PERCENT BY AUTOMATED COUNT1.4 %Normal [facility] on above:Result Comment: This is an appended report. These results have been appended to a previously preliminary verified report.Performed By: #### CMP #### [facility] ([address] [address] VIRErythrocyte distribution width (RBC) [Ratio]24.9 %High 11.5-15[facility] on above:Performed By: #### CMP #### [address] [address] VIRHematocrit (Bld) [Volume fraction]35.1 %Fvuulu38-67 [facility] on above:Performed By: #### CMP #### [facility] ([address] [address] VIRHemoglobin (Bld) [Mass/Vol]10.7 g/dLLow11.7-15.5PPaulding County Hospital on above:Performed By: #### CMP #### [facility] ([address] [address] VIRLYMPHOCYTES ABSOLUTE COUNT (10*3/UL) BY AUTOMATED COUNT2.2 10*3/uLNormal1.0-3.5PPaulding County Hospital on above:Result Comment: This is an appended report. These results have been appended to a previously preliminary verified report.Performed By: #### CMP #### [facility] ([address] [address] VIRLYMPHOCYTES RELATIVE PERCENT BY AUTOMATED COUNT19.1 %Normal [facility] on above:Result Comment: This is an appended report. These results have been appended to a previously preliminary verified report.Performed By: #### CMP #### [facility] ([address] [address] VIRH (RBC) [Entitic mass]20.8 ldNyp94-90JquEvumeqMethodist Hospital NortheastComment on above:Performed By: #### CMP #### [facility] ([address] [address] VIRMCHC (RBC) [Mass/Vol]30.5 g/rIAhc39-39TnpWlydabSt. John of God HospitalCompontiac general hospital on above:Performed By: #### CMP #### [facility] ([address] [address] VIRV (RBC) [Entitic vol]68 uOMzg07-488VeqZunmmnMethodist Hospital NortheastComment on above:Performed By: #### CMP #### [facility] ([address] [address] VIRMONOCYTES ABSOLUTE COUNT (10*3/UL) BY AUTOMATED COUNT0.7 10*3/uLNormal0.0-0.9[facility] on above:Result Comment: This is an appended report. These results have been appended to a previously preliminary verified report.Performed By: #### CMP #### [facility] ([address] [address] VIRMONOCYTES RELATIVE PERCENT BY AUTOMATED COUNT6.3 %Normal [facility] on above:Result Comment: This is an appended report. These results have been appended to a previously preliminary verified report.Performed By: #### CMP #### [facility] ([address] [address] VIRNEUTROPHILS ABSOLUTE COUNT BY AUTOMATED COUNT8.2 10*3/uL High1.5-6.6[facility] on above:Result Comment: This is an appended report. These results have been appended to a previously preliminary verified report.Performed By: #### CMP #### [address] [address] VIRNEUTROPHILS RELATIVE PERCENT BY AUTOMATED COUNT72.1 %Normal [facility] HospitalCompont[facility] on above:Result Comment: This is an appended report. These results have been appended to a previously preliminary verified report.Performed By: #### CMP #### [facility] ([address] [address] VIRPlatelet mean volume (Bld) [Entitic vol]8.[address]LNormal7-12 [address] HospitalCompont[facility] hospital on above:Performed By: #### CMP #### [facility] ([address] [address] VIRPlatelets (Bld) [#/Vol]354 10*3/sOLsxlpl844-076SzjZfbupk [facility] HospitalCompontiac [facility] hospital on above:Performed By: #### CMP #### [facility] ([address] [address] VIRRBC COUNT5.16 X10E12/LNormal3.8-5.2[facility] Developmental CenterComment on above:Performed By: #### CMP #### [facility] ([place] [address] [place] [address] VIRWBC (Bld) [#/Vol]11.4 10*3/uLHigh4-11ProMethodist Hospital NortheastComment on above:Performed By: #### CMP #### [facility] ([facility]) [facility] [place] [address] VIRCOMPREHENSIVE METABOLIC PANELon 25-39-3574Nraeijm [Mass/Vol]4.1 g/dLNormal3.2-5.3PMetroHealth Par[place] Medical CenterComment on above: Performed By: #### CMP #### [facility] ([place] [address] [place] [address] VIRALP [Catalytic activity/Vol]82 U/HVmrsdl58-751BujZwfttbMethodist Hospital NortheastComment on above:Performed By: #### CMP #### [facility] ([place] [address] [place] [address] VIRALT [Catalytic activity/Vol]22 U/LNormal<=31PMetroHealth Par[place] Medical CenterComment on above:Performed By: #### CMP #### [facility] ([place] [address] [place] [address] VIRAnion gap [Moles/Vol]14 mmol/LNormal5-15ProMethodist Hospital NortheastComment on above:Performed By: #### CMP #### [facility] ([place] [address] [place] [address] VIRAST [Catalytic activity/Vol]21 U/LNormal<=41ProMethodist Hospital NortheastComment on above:Performed By: #### CMP #### [facility] ([place] [address] [place] [address] VIRBilirubin [Mass/Vol]0.4 mg/dLNormal0.3-1.2ProMedica Chaves HospitalComment on above:Performed By: #### CMP #### [facility] ([address] [place] [address] VIRCalcium [Mass/Vol]9.2 mg/dLNormal8.5-10.5PMetroHealth Par[place] Medical CenterComment on above:Performed By: #### CMP #### [facility] ([address] [place] [address] VIRChloride [Moles/Vol]96 mmol/XNxd19-002XyuQnsrovMethodist Hospital NortheastComment on above:Performed By: #### CMP #### [address] [address] VIRCO2 [Moles/Vol]29 mmol/DIhydnv86-76NklHornavMetroHealth Par[place] Medical CenterComment on above:Performed By: #### CMP #### [address] [address] VIRCreatinine [Mass/Vol]1.53 mg/dLHigh0.40-1.00ProMethodist Hospital NortheastComment on above:Result Comment: METHOD TRACEABLE TO IDMS STANDARDPerformed By: #### CMP #### [facility] ([address] [address] VIRGFR/1.73 sq M.predicted among non-blacks MDRD (S/P/Bld) [Vol rate/Area]38 mL/min/{1.73_m2}Low>=60ProMethodist Hospital NortheastComment on above:Result Comment: eGFR not reported due to non-numeric value for Creatinine. Reported eGFR is based on the CKD-EPI 2021 equation that does not use a race coefficient.Performed By: #### CMP #### [facility] ([address] [address] VIRGlucose [Mass/Vol]103 mg/jXLubh73-93XzxRsepspMethodist Hospital NortheastComment on above:Performed By: #### CMP #### [facility] ([facility]) [address] [place] [address] [place] [address] VIRPotassium [Moles/Vol]3.4 mmol/LLow3.5-5.0ProMethodist Hospital NortheastComment on above:Performed By: #### CMP #### [facility] ([address] [place] [address] VIRProtein [Mass/Vol]7.6 g/dLNormal6.0-8.0ProMethodist Hospital NortheastComment on above:Performed By: #### CMP #### [facility] ([address] [place] [address] VIRSodium [Moles/Vol]139 mmol/NVemzag836-129RmrYnbhay [facility]remont HospitalComment on above:Performed By: #### CMP #### [facility] ([address] [place] [address] VIRUrea nitrogen [Mass/Vol]28 mg/dLHigh5-27ProMethodist Hospital NortheastComment on above:Performed By: #### CMP #### [facility] ([address] [place] [address] VIRCT ABDOMEN AND PELVIS W CONTon 37-32-2831GT ABDOMEN AND PELVIS W CONTCT ABDOMEN AND [...] by Saurabh Anderson MD on 02/22/2025 3:54 PMNormalProMethodist Hospital NortheastLACTATE W/ REFLEXon 74-92-0154NTDGBDU W/REFLEX0.9 mmol/LNormal0.4-2.0 [facility] HospitalCompontiac [facility] hospital on above:Order Comment: Result did not trigger repeat Lactate,re-order if needed.Performed By: #### CMP #### [address] [address] VIRLIPASEon 41-34-5238Wlpfar [Catalytic activity/Vol]40 U/L Uiwosv41-78ZvhVpqaydSt. John of God HospitalCompontiac general hospital on above:Performed By: #### CMP #### [facility] ([address] [address] VIRMAGNESIUMon 24-48-9267Jgykhocfu [Mass/Vol]2.3 mg/dLNormal 1.8-2.6[facility] HospitalCompontiac general hospital on above:Performed By: #### CMP #### [address] [address] VIRPOCT NURSING URINE MACROSCOPIC UAon 22-02-1123PDZVPDYBJ JYOTI NegativeNormalNegativeProMedica Chaves HospitalComment on above:Performed By: #### CMP #### [facility] ([address] [address] VIRBLOOD/HGB NURTraceAbnormalNegativeSt. John of God HospitalComment on above:Performed By: #### CMP #### [facility] ([address] [address] VIRGLUCOSE ZDE495 mg/dLAbnormalNegativeSt. John of God HospitalComment on above:Performed By: #### CMP #### [facility] ([address] [address] VIRKETONES NURNegativeNormalNegMagruder Hospital Comment on above:Performed By: #### CMP #### [facility] ([address] [address] VIRLEUKOCYTE ESTERASE NURNegativeNormalNegativeSt. John of God HospitalComment on above:Performed By: #### CMP #### [facility] ([address] [address] VIRNITRITE NURNegativeNormalNegMagruder Hospital Comment on above:Performed By: #### CMP #### [facility] ([address] [address] VIRPH NUR5.7Xfauyi1.0, 6.0, 6.5, 7.0, 7.5, 8.0, 8.5, 5.5 [facility] God HospitalComment on above:Performed By: #### CMP #### [facility] ([address] [place] [address] VIRPROTEIN NURNegativeNoangel medical centerNegativeSt. John of God Hospital Comment on above:Performed By: #### CMP #### [facility] ([address] [place] [address] VIRSPECIFIC GRAVITY NUR1.087Ythpfu5.010, 1.015, 1.020, 1.025 [facility] of God HospitalComment on above:Performed By: #### CMP #### [facility] ([address] [place] [address] VIRUROBILINOGEN NUR0.2 E.U./dLNormalSt. John of God Hospital Comment on above:Performed By: #### CMP #### [facility] ([address] [place] [address] VIRBASIC METABOLIC PANELon 00-87-3748Jlxje gap [Moles/Vol]9 mmol/LNormal5-15St. [facility] HospitalComment on above:Performed By: #### CMP #### [address] [place] [address] VIRCalcium [Mass/Vol]9.6 mg/dLNormal8.5-10.5PMetroHealth Parma Medical CenterComment on above:Performed By: #### CMP #### [address] [place] [address] VIRChloride [Moles/Vol]96 mmol/QLjl83-056QoeBccrlzSt. John of God HospitalComment on above:Performed By: #### CMP #### [facility] ([address] [place] [address] VIRCO2 [Moles/Vol]35 mmol/FCfcc59-87ZjvTmxebwMetroHealth Par[place] Medical Center Comment on above:Performed By: #### CMP #### [address] [place] [address] VIRCreatinine [Mass/Vol]1.17 mg/dLHigh0.40-1.00St. [facility] of God HospitalComment on above:Result Comment: METHOD TRACEABLE TO IDMS STANDARDPerformed By: #### CMP #### [facility] [place] [place] [address] VIRGFR/1.73 sq M.predicted among non-blacks MDRD (S/P/Bld) [Vol rate/Area]53 mL/min/{1.73_m2}Low>=60ProMethodist Hospital NortheastComment on above:Result Comment: Reported eGFR is based on the CKD-EPI 2020 equation that does not use a race coefficient.Performed By: #### CMP #### [facility] ([address] [place] [address] VIRGlucose [Mass/Vol]101 mg/fYKsuq53-68TouGadkahMethodist Hospital NortheastComment on above:Performed By: #### CMP #### [address] [place] [address] VIRPotassium [Moles/Vol]3.3 mmol/LLow3.5-5.0ProMethodist Hospital NortheastComment on above:Performed By: #### CMP #### [facility] ([address] [place] [address] VIRSodium [Moles/Vol]140 mmol/BIuhblj977-387UpaBbpxve [facility]remont HospitalComment on above:Performed By: #### CMP #### [address] [place] [address] VIRUrea nitrogen [Mass/Vol]16 mg/dLNormal5-27ProMethodist Hospital NortheastComment on above:Performed By: #### CMP #### [address] [place] [address] VIRBASIC METABOLIC PANELon 95-39-6934Lschd gap [Moles/Vol]12 mmol/LNormal5-15ProMethodist Hospital NortheastComment on above:Performed By: #### LACTS #### [facility] ([address] [place] [address] VIRCalcium [Mass/Vol]9.2 mg/dLNormal8.5-10.5PMetroHealth Par[place] Medical CenterComment on above:Performed By: #### LACTS #### [facility] ([address] [place] [address] VIRChloride [Moles/Vol]97 mmol/WMas23-183QucZzvmjeMethodist Hospital NortheastComment on above:Performed By: #### LACTS #### [facility] ([address] [address] VIRCO2 [Moles/Vol]29 mmol/MQqxgyf01-88DzmIgplazMetroHealth Par[place] Medical CenterComment on above:Performed By: #### LACTS #### [facility] ([address] [address] VIRCreatinine [Mass/Vol]1.16 mg/dLHigh0.40-1.00ProMethodist Hospital NortheastComment on above:Result Comment: METHOD TRACEABLE TO IDAL STANDARDPerformed By: #### LACTS #### [facility] ([address] [address] VIRGFR/1.73 sq M.predicted among non-blacks MDRD (S/P/Bld) [Vol rate/Area]53 mL/min/{1.73_m2}Low>=60ProMethodist Hospital NortheastComment on above:Result Comment: eGFR not reported due to non-numeric value for Creatinine. Reported eGFR is based on the CKD-EPI 2021 equation that does not use a race coefficient.Performed By: #### LACTS #### [facility] ([address] [address] VIRGlucose [Mass/Vol]127 mg/tGCyrs27-88LjkKyeuzcMethodist Hospital NortheastComment on above:Performed By: #### LACTS #### [facility] ([address] [address] VIRPotassium [Moles/Vol]3.4 mmol/LLow3.5-5.0St. [facility] God HospitalComment on above:Performed By: #### LACTS #### [facility] ([address] [address] VIRSodium [Moles/Vol]138 mmol/CJnxome854-903YbvQwbjre [facility] HospitalCompontiac general hospital on above:Performed By: #### LACTS #### [facility] ([address] [address] VIRUrea nitrogen [Mass/Vol]13 mg/dLNormal5-27ProMethodist Hospital NortheastComment on above:Performed By: #### LACTS #### [facility] ([address] [address] VIRCBC WITH AUTO DIFFERENTIALon 88-85-0264QHRWOOOQV ABSOLUTE COUNT (10*3/UL) BY AUTOMATED COUNT0.2 10*3/uLNormal0.0-0.2PMetroHealth Par[place] Medical CenterCompontiac general hospital on above:Result Comment: This is an appended report. These results have been appended to a previously preliminary verified report.Performed By: #### LACTS #### [facility] ([address] [address] VIRBASOPHILS RELATIVE PERCENT BY AUTOMATED COUNT1.9 %Normal [facility] on above:Result Comment: This is an appended report. These results have been appended to a previously preliminary verified report.Performed By: #### LACTS #### [facility] ([address] [address] VIRCELLAVISION ANISOCYTOSIS IN BLOOD BY LIGHT MICROSCOPY2+ NormalPaulding County Hospital on above:Result Comment: This is an appended report. These results have been appended to a previously preliminary verified report.Performed By: #### LACTS #### [facility] ([address] [address] VIRCELLAVISION DIFFERENTIAL TYPEAUTOMATED DIFFERENTIALNormal [facility] on above:Result Comment: This is an appended report. These results have been appended to a previously preliminary verified report.Performed By: #### LACTS #### [facility] ([address] [address] VIRCELLAVISION ELLIPTOCYTES IN BLOOD BY LIGHT MICROSCOPY1+ NormalSt. John of God HospitalCompontiac general hospital on above:Result Comment: This is an appended report. These results have been appended to a previously preliminary verified report.Performed By: #### LACTS #### [facility] ([address] [address] VIREosinophils (Bld) [#/Vol]0.2 10*3/uLNormal0.0-0.4[facility] on above:Result Comment: This is an appended report. These results have been appended to a previously preliminary verified report. Performed By: #### LACTS #### [facility] ([address] [address] VIREOSINOPHILS RELATIVE PERCENT BY AUTOMATED COUNT1.7 %Normal [facility] on above:Result Comment: This is an appended report. These results have been appended to a previously preliminary verified report.Performed By: #### LACTS #### [facility] ([address] [address] VIRErythrocyte distribution width (RBC) [Ratio]22.2 %High 11.5-15ProMethodist Hospital NortheastComment on above:Performed By: #### LACTS #### [facility] ([address] [address] VIRHematocrit (Bld) [Volume fraction]34.6 %Qzg23-14IvaZzpqxiMethodist Hospital NortheastComment on above:Performed By: #### LACTS #### [facility] ([address] [place] [address] VIRHemoglobin (Bld) [Mass/Vol]10.6 g/dLLow11.7-15.5PMetroHealth Parma Medical CenterComment on above:Performed By: #### LACTS #### [facility] ([facility]) [address] [place] [address] VIRLYMPHOCYTES ABSOLUTE COUNT (10*3/UL) BY AUTOMATED COUNT2.2 10*3/uLNormal1.0-3.5PMetroHealth Parma Medical CenterComment on above:Result Comment: This is an appended report. These results have been appended to a previously preliminary verified report.Performed By: #### LACTS #### [facility] ([address] [address] VIRLYMPHOCYTES RELATIVE PERCENT BY AUTOMATED COUNT23.0 %Normal [facility] HospitalCompontiac general hospital on above:Result Comment: This is an appended report. These results have been appended to a previously preliminary verified report.Performed By: #### LACTS #### [facility] ([address] [address] VIRMCH (RBC) [Entitic mass]20.0 bgNgv35-14KflVppzenMethodist Hospital NortheastComment on above:Performed By: #### LACTS #### [facility] ([address] [address] VIRMCHC (RBC) [Mass/Vol]30.6 g/uPPwg55-42RdiVcwguvMethodist Hospital NortheastComment on above:Performed By: #### LACTS #### [facility] ([address] [address] VIRMCV (RBC) [Entitic vol]65 gYXzn21-942LonEfmwytMethodist Hospital NortheastComment on above:Performed By: #### LACTS #### [facility] ([address] [address] VIRMONOCYTES ABSOLUTE COUNT (10*3/UL) BY AUTOMATED COUNT0.4 10*3/uLNormal0.0-0.9[facility] on above:Result Comment: This is an appended report. These results have been appended to a previously preliminary verified report.Performed By: #### LACTS #### [facility] ([address] [address] VIRMONOCYTES RELATIVE PERCENT BY AUTOMATED COUNT4.1 %Normal [facility] on above:Result Comment: This is an appended report. These results have been appended to a previously preliminary verified report.Performed By: #### LACTS #### [address] [address] VIRNEUTROPHILS ABSOLUTE COUNT BY AUTOMATED COUNT6.6 10*3/uL Normal1.5-6.6[facility] on above:Result Comment: This is an appended report. These results have been appended to a previously preliminary verified report.Performed By: #### LACTS #### [facility] ([address] [address] VIRNEUTROPHILS RELATIVE PERCENT BY AUTOMATED COUNT69.3 %Normal [facility] on above:Result Comment: This is an appended report. These results have been appended to a previously preliminary verified report.Performed By: #### LACTS #### [facility] ([address] [address] VIRPlatelet mean volume (Bld) [Entitic vol]8.4 fLNormal7-12 [facility]ding [facility]:Performed By: #### LACTS #### [facility] ([address] [address] VIRPlatelets (Bld) [#/Vol]360 10*3/zWVksinp976-038KeaHcsida Fremont HospitalComment on above:Performed By: #### LACTS #### [facility] ([facility]) [address] [place] [address] VIRRBC COUNT5.30 X10E12/LHigh3.8-5.2PAcadian Medical Centerica [facility] Comment on above:Performed By: #### LACTS #### [facility] ([facility]) [address] [place] [address] VIRWBC (Bld) [#/Vol]9.6 10*3/uLNormal4-11ProMedica [facility]terman Developmental CenterComment on above:Performed By: #### LACTS #### [facility] ([facility]) [address] [place] [address] VIRCT ABDOMEN AND PELVIS W CONTon 76-34-4232YJ ABDOMEN AND PELVIS W CONTCT ABDOMEN AND [...] 3:45 PMNormalSt. John of God Hospital LIPASEon 88-48-4510Pxqcfj [Catalytic activity/Vol]41 U/SKdfo60-25FmvUiuekzMethodist Hospital NortheastComment on above:Performed By: #### LACTS #### [facility] ([place] [address] [place] [address] VIRLIVER PANELon 07-26-1419Ysjlvqj [Mass/Vol]4.2 g/dLNormal 3.2-5.3PMetroHealth Parma Medical CenterComment on above:Performed By: #### LACTS #### [facility] ([address] [address] VIRALP [Catalytic activity/Vol]89 U/WRzwjau58-323CbwLtereuMethodist Hospital NortheastComment on above:Performed By: #### LACTS #### [facility] ([address] [place] [address] VIRALT [Catalytic activity/Vol]17 U/LNormal<=31PMetroHealth Parma Medical CenterComment on above:Performed By: #### LACTS #### [facility] ([place] [address] [place] [address] VIRAST [Catalytic activity/Vol]20 U/LNormal<=41ProMethodist Hospital NortheastComment on above:Performed By: #### LACTS #### [facility] ([place] [address] [place] [address] VIRBilirubin [Mass/Vol]0.7 mg/dLNormal0.3-1.2PMetroHealth Parma Medical CenterComment on above:Performed By: #### LACTS #### [facility] ([place] [address] [place] [address] VIRBilirubin.indirect [Mass/Vol]0.1 mg/dLNormal<=0.4ProMethodist Hospital NortheastComment on above:Performed By: #### LACTS #### [facility] ([address] [place] [address] VIRProtein [Mass/Vol]7.9 g/dLNormal6.0-8.0ProMethodist Hospital NortheastComment on above:Performed By: #### LACTS #### [facility] ([address] [place] [address] VIRBASIC METABOLIC PANELon 29-01-2747Ppoxb gap [Moles/Vol]9 mmol/LNormal5-15ProMethodist Hospital NortheastComment on above:Performed By: #### LACTS #### [facility] ([address] [place] [address] VIRCalcium [Mass/Vol]9.1 mg/dLNormal8.5-10.5PMetroHealth Parma Medical CenterComment on above:Performed By: #### LACTS #### [facility] ([address] [place] [address] VIRChloride [Moles/Vol]102 mmol/DNlvgom33-163MtwRlggdrMethodist Hospital NortheastComment on above:Performed By: #### LACTS #### [facility] ([address] [place] [address] VIRCO2 [Moles/Vol]31 mmol/MWoyxpo92-47ItjXjtovoMetroHealth Parma Medical CenterComment on above:Performed By: #### LACTS #### [facility] ([address] [place] [address] VIRCreatinine [Mass/Vol]1.27 mg/dLHigh0.40-1.00ProMethodist Hospital NortheastComment on above:Result Comment: METHOD TRACEABLE TO IDMS STANDARDPerformed By: #### LACTS #### [facility] ([address] [place] [address] VIRGFR/1.73 sq M.predicted among non-blacks MDRD (S/P/Bld) [Vol rate/Area]48 mL/min/{1.73_m2}Low>=60ProMethodist Hospital NortheastComment on above:Result Comment: Reported eGFR is based on the CKD-EPI 2020 equation that does not use a race coefficient.Performed By: #### LACTS #### [facility] ([address] [place] [address] VIRGlucose [Mass/Vol]91 mg/vYSfazin87-69DyyUsgxjlMethodist Hospital NortheastComment on above:Performed By: #### LACTS #### [facility] ([address] [place] [address] VIRPotassium [Moles/Vol]4.2 mmol/LNormal3.5-5.0ProMethodist Hospital NortheastComment on above:Performed By: #### LACTS #### [facility] ([address] [place] [address] VIRSodium [Moles/Vol]142 mmol/JWirapg432-148XitJbsana Fremont HospitalComment on above:Performed By: #### LACTS #### [facility] ([address] [place] [address] VIRUrea nitrogen [Mass/Vol]16 mg/dLNormal5-27ProMethodist Hospital NortheastComment on above:Performed By: #### LACTS #### [facility] ([address] [place] [address] VIRBasic Metabolic Panelon 55-90-4640Iloto gap [Moles/Vol]9 mmol/L5 - 15 mmol/LProMedica Health SystemCalcium [Mass/Vol]9.1 mg/dL8.5 - 10.5 mg/dLProMedica Health SystemChloride [Moles/Vol]102 mmol/L98 - 109 mmol/L [facility] SystemCO2 [Moles/Vol]31 mmol/L22 - 32 mmol/LPrHolzer Health System SystemCreatinine [Mass/Vol]1.27 mg/dLHigh0.40 - 1.00 mg/dLMercy Health Urbana HospitalComment on above:METHOD TRACEABLE TO IDMS STANDARDEGFR Non-Race Dependent 48Low- PINCorey Hospital SystemComment on above:Reported eGFR is based on the CKD-EPI 2020 equation that does not use a race coefficient. Glucose [Mass/Vol]91 mg/dL65 - 99 mg/dLMercy Health Urbana HospitalInterpretation and review of laboratory resultsAbnormalMercy Health Urbana HospitalPotassium [Moles/Vol]4.2 mmol/L3.5 - 5.0 mmol/[facility] SystemSodium [Moles/Vol] 142 mmol/L134 - 146 mmol/[facility] SystemUrea nitrogen [Mass/Vol]16 mg/dL5 - 27 mg/dLBrooke Glen Behavioral HospitalBASIC METABOLIC PANELon 29-91-9132Dlgxw gap [Moles/Vol]8 mmol/LNormal5-15[facility] Ambulatory PPGComment on above:Performed By: #### BMP #### [facility] ([facility]) [address] [place] [address] VIRCalcium [Mass/Vol]9.0 mg/dLNuiqsut8.5-10.5POhioHealth Pickerington Methodist Hospital Ambulatory PPGComment on above:Performed By: #### BMP #### [facility] ([facility]) [address] [place] [address] VIRChloride [Moles/Vol]101 mmol/ILyjkoc17-732HozUpxvjo Hospital Ambulatory PPGComment on above:Performed By: #### BMP #### [facility] ([facility]) [address] [place] [address] VIRCO2 [Moles/Vol]33 mmol/BMgnh54-38GpdIfzyjw Hospital Ambulatory PPGComment on above:Performed By: #### BMP #### [facility] ([facility]) [address] [place] [address] VIRCreatinine [Mass/Vol]1.32 mg/dLHigh0.40-1.00[facility] Ambulatory PPGComment on above:Result Comment: METHOD TRACEABLE TO IDMS STANDARDPerformed By: #### BMP #### [facility] ([facility]) [address] [place] [address] VIRGFR/1.73 sq M.predicted among non-blacks MDRD (S/P/Bld) [Vol rate/Area]46 mL/min/{1.73_m2}Low>=60ProWexner Medical Center Ambulatory PPGComment on above:Result Comment: Reported eGFR is based on the CKD-EPI 2020 equation that does not use a race coefficient.Performed By: #### BMP #### [facility] ([facility]) [address] [place] [address] VIRGlucose [Mass/Vol]106 mg/zANpqp97-50VwsFbpyie Hospital Ambulatory PPGComment on above:Performed By: #### BMP #### [facility] ([facility]) [address] [place] [address] VIRPotassium [Moles/Vol]4.5 mmol/LNormal3.5-5.0[facility] Ambulatory PPGComment on above:Performed By: #### BMP #### [facility] ([facility]) [address] [place] [address] VIRSodium [Moles/Vol]142 mmol/HHackod293-028VreYmqrpe Hospital Ambulatory PPGComment on above:Performed By: #### BMP #### [facility] ([facility]) [address] [place] [address] VIRUrea nitrogen [Mass/Vol]21 mg/dLNormal5-27[facility] Ambulatory PPGComment on above:Performed By: #### BMP #### [facility] ([facility]) [address] [place] [address] VIRBasic Metabolic Panelon 46-10-0217Biczg gap [Moles/Vol]8 mmol/L5 - 15 mmol/LProMedica Health SystemCalcium [Mass/Vol]9 mg/dL8.5 - 10.5 mg/dLSamaritan North Health Center SystemChloride [Moles/Vol]101 mmol/L98 - 109 mmol/L [facility] SystemCO2 [Moles/Vol]33 mmol/LHigh22 - 32 mmol/LPrHolzer Health System SystemCreatinine [Mass/Vol]1.32 mg/dLHigh0.40 - 1.00 mg/dLMercy Health Urbana HospitalComment on above:METHOD TRACEABLE TO IDAL STANDARDEGFR Non-Race Edcyskljv80Mgg- PINFPGerman HospitalComment on above:Reported eGFR is based on the CKD-EPI 2020 equation that does not use a race coefficient. Glucose [Mass/Vol]106 mg/rGOqhg56 - 99 mg/dLMercy Health Urbana Hospital Interpretation and review of laboratory resultsAbnoNorthern Regional Hospital Potassium [Moles/Vol]4.5 mmol/L3.5 - 5.0 mmol/LPrMedical Center of the Rockies Health SystemSodium [Moles/Vol]142 mmol/L134 - 146 mmol/[facility] SystemUrea nitrogen [Mass/Vol]21 mg/dL5 - 27 mg/dLBrooke Glen Behavioral [facility] BASIC METABOLIC PANELon 33-77-7259Axoyw gap [Moles/Vol]10 mmol/LNormal5-15 [facility] God HospitalComment on above:Performed By: #### LACTS #### [facility] ([address] [place] [address] VIRCalcium [Mass/Vol]9.6 mg/dLNormal8.5-10.5PMetroHealth Parma Medical CenterComment on above:Performed By: #### LACTS #### [facility] ([address] [place] [address] VIRChloride [Moles/Vol]98 mmol/BMbsxhk86-247EdpWkrtrfSt. John of God HospitalComment on above:Performed By: #### LACTS #### [facility] ([address] [place] [address] VIRCO2 [Moles/Vol]35 mmol/UCqey60-45DvsCwzavqChildren's Hospital of San Diego Comment on above:Performed By: #### LACTS #### [facility] ([address] [address] VIRCreatinine [Mass/Vol]1.47 mg/dLHigh0.40-1.00ProMethodist Hospital NortheastComment on above:Result Comment: METHOD TRACEABLE TO IDMS STANDARDPerformed By: #### LACTS #### [facility] ([address] [address] VIRGFR/1.73 sq M.predicted among non-blacks MDRD (S/P/Bld) [Vol rate/Area]40 mL/min/{1.73_m2}Low>=60ProMethodist Hospital NortheastComment on above:Result Comment: Reported eGFR is based on the CKD-EPI 2020 equation that does not use a race coefficient.Performed By: #### LACTS #### [facility] ([address] [address] VIRGlucose [Mass/Vol]110 mg/kJBrvb19-83KisSbqmzjMethodist Hospital NortheastComment on above:Performed By: #### LACTS #### [facility] ([address] [address] VIRPotassium [Moles/Vol]4.5 mmol/LNormal3.5-5.0ProMethodist Hospital NortheastComment on above:Performed By: #### LACTS #### [facility] ([address] [address] VIRSodium [Moles/Vol]143 mmol/TYcrmny928-399AyfUxizaw Fremont HospitalComment on above:Performed By: #### LACTS #### [facility] ([address] [address] VIRUrea nitrogen [Mass/Vol]23 mg/dLNormal5-27ProMethodist Hospital NortheastComment on above:Performed By: #### LACTS #### [facility] ([address] [place] [address] VIRBASIC METABOLIC PANELon 28-14-8946Zhbic gap [Moles/Vol]6 mmol/LNormal5-15St. [facility] of God HospitalComment on above:Performed By: #### VBG #### [facility] ([address] [place] [address] VIRCalcium [Mass/Vol]9.2 mg/dLNormal8.5-10.5PMetroHealth Parma Medical CenterComment on above:Performed By: #### VBG #### [facility] ([address] [place] [address] VIRChloride [Moles/Vol]103 mmol/HIjzqya71-783FbuVevkseMethodist Hospital NortheastComment on above:Performed By: #### VBG #### [facility] ([address] [place] [address] VIRCO2 [Moles/Vol]34 mmol/OIksd71-10HshHadpftMetroHealth Parma Medical Center Comment on above:Performed By: #### VBG #### [facility] ([address] [place] [address] VIRCreatinine [Mass/Vol]0.84 mg/dLNormal0.40-1.00ProMethodist Hospital NortheastComment on above:Result Comment: METHOD TRACEABLE TO IDMS STANDARDPerformed By: #### VBG #### [facility] ([address] [place] [address] VIRGFR/1.73 sq M.predicted among non-blacks MDRD (S/P/Bld) [Vol rate/Area]79 mL/min/{1.73_m2}Normal>=60ProMethodist Hospital NortheastComment on above:Result Comment: eGFR not reported due to non-numeric value for Creatinine. Reported eGFR is based on the CKD-EPI 2020 equation that does not use a race coefficient.Performed By: #### VBG #### [facility] ([address] [place] [address] VIRGlucose [Mass/Vol]126 mg/pOFytw72-98KjhKcuzypMethodist Hospital NortheastComment on above:Performed By: #### VBG #### [facility] ([address] [place] [address] VIRPotassium [Moles/Vol]4.3 mmol/LNormal3.5-5.0ProMethodist Hospital NortheastComment on above:Performed By: #### VBG #### [facility] ([address] [place] [address] VIRSodium [Moles/Vol]143 mmol/LXluufw445-269XccFogfsj Fremont HospitalComment on above:Performed By: #### VBG #### [facility] ([address] [place] [address] VIRUrea nitrogen [Mass/Vol]24 mg/dLNormal5-27ProMethodist Hospital NortheastComment on above:Performed By: #### VBG #### [facility] ([address] [place] [address] VIRBLOOD GAS, VENOUSon 88-73-7643RWCK,ZYXPWB66.0 mmol/LHigh 0.0-2.0ProMethodist Hospital NortheastComment on above:Performed By: #### LACTS #### [facility] ([address] [place] [address] VIRHCO3 (Bld) [Moles/Vol]37.4 mmol/LHigh20.0-24.0St. [facility] of God HospitalComment on above:Performed By: #### LACTS #### [facility] ([address] [place] [address] VIROxygen saturation in Blood80.0 %NormalProMethodist Hospital NortheastComment on above:Performed By: #### LACTS #### [facility] ([address] [place] [address] VIRPCO2 KMLNWU27.6 uoVlZfqk15.0-50.0[facility] Comment on above:Performed By: #### LACTS #### [facility] ([address] [place] [address] VIRPH VENOUS7.611Mmthie1.320-7.420[facility] Comment on above:Performed By: #### LACTS #### [facility] ([address] [place] [address] VIRPO2 CMRCTX66 idDvFhnwje19-28XtkDtskodSt. John of God Hospital Comment on above:Performed By: #### LACTS #### [facility] ([address] [place] [address] VIRPOC RAVINDRA'S TESTN/ANormalProMethodist Hospital NortheastComment on above:Performed By: #### LACTS #### [facility] ([address] [place] [address] VIRSAMPLE SITEN/ANormalSt. John of God HospitalComment on above:Performed By: #### LACTS #### [facility] ([address] [place] [address] VIRSAMPLE TYPEVENOUSNormalSt. John of God HospitalComment on above:Performed By: #### LACTS #### [facility] ([address] [place] [address] VIRSOURCE OF OXYGENNCNormalSt. John of God HospitalComment on above:Performed By: #### LACTS #### [facility] ([address] [place] [address] VIRBLOOD GAS, VENOUSVBG BLOOD GAS, VENOUS CancelledNormal St. [facility] of God HospitalPHOSPHORUSon 37-08-8978Ccwkkvhab [Mass/Vol]3.1 mg/dL Normal2.4-4.9St. [facility] of God HospitalComment on above:Performed By: #### LACTS #### [facility] ([address] [place] [address] VIRBASIC METABOLIC PANELon 55-01-6768Cdndg gap [Moles/Vol]7 mmol/LNormal5-15ProMethodist Hospital NortheastComment on above:Performed By: #### VBG #### [facility] ([address] [place] [address] VIRCalcium [Mass/Vol]8.8 mg/dLNormal8.5-10.5PMetroHealth Parma Medical CenterComment on above:Performed By: #### VBG #### [facility] ([address] [place] [address] VIRChloride [Moles/Vol]96 mmol/YLky12-778HhoKjqyadMethodist Hospital NortheastComment on above:Performed By: #### VBG #### [facility] ([address] [place] [address] VIRCO2 [Moles/Vol]34 mmol/WUnmw33-69DozEirptqMetroHealth Par[facility] Medical Center Comment on above:Performed By: #### VBG #### [facility] ([address] [place] [address] VIRCreatinine [Mass/Vol]0.91 mg/dLNormal0.40-1.00ProMethodist Hospital NortheastComment on above:Result Comment: METHOD TRACEABLE TO IDMS STANDARDPerformed By: #### VBG #### [facility] ([address] [place] [address] VIRGFR/1.73 sq M.predicted among non-blacks MDRD (S/P/Bld) [Vol rate/Area]71 mL/min/{1.73_m2}Normal>=60ProMethodist Hospital NortheastComment on above:Result Comment: eGFR not reported due to non-numeric value for Creatinine. Reported eGFR is based on the CKD-EPI 2021 equation that does not use a race coefficient.Performed By: #### VBG #### [facility] ([address] [place] [address] VIRGlucose [Mass/Vol]140 mg/eOTedh97-28UtwXpvzznMethodist Hospital NortheastComment on above:Performed By: #### VBG #### [facility] ([address] [place] [address] VIRPotassium [Moles/Vol]4.0 mmol/LNormal3.5-5.0ProMethodist Hospital NortheastComment on above:Performed By: #### VBG #### [address] [place] [address] VIRSodium [Moles/Vol]137 mmol/PSormga272-746MopVedhwy Fremont HospitalComment on above:Performed By: #### VBG #### [address] [place] [address] VIRUrea nitrogen [Mass/Vol]19 mg/dLNormal5-27ProMethodist Hospital NortheastComment on above:Performed By: #### VBG #### [address] [place] [address] VIRBEDSIDE GLUCOSEon 88-51-5912Oyywcwz [Mass/Vol]147 mg/dLHigh 65-99ProMethodist Hospital NortheastComment on above:Performed By: #### VBG #### [facility] ([address] [place] [address] VIRGlucose [Mass/Vol]144 mg/qBUibd38-32EueRzmspwMethodist Hospital NortheastComment on above:Performed By: #### VBG #### [facility] ([address] [place] [address] VIRBLOOD GAS, VENOUSon 96-63-6757JKIG,EXCESS7.0 mmol/LHigh 0.0-2.0St. [facility] of God HospitalComment on above:Performed By: #### VBG #### [facility] ([address] [place] [address] VIRHCO3 (Bld) [Moles/Vol]34.7 mmol/LHigh20.0-24.0St. [facility] of God HospitalComment on above:Performed By: #### VBG #### [facility] ([address] [place] [address] VIROxygen saturation in Blood81.0 %NormalProMethodist Hospital NortheastComment on above:Performed By: #### VBG #### [address] [place] [address] VIRPCO2 PGCKSX36.3 daYkBefa72.0-50.0[facility] Comment on above:Performed By: #### VBG #### [facility] ([address] [place] [address] VIRPH VENOUS7.721Zzaqft0.320-7.420[facility] Comment on above:Performed By: #### VBG #### [facility] ([address] [place] [address] VIRPO2 FXASZT22 vpQrWykuqq30-64FwpLqyooeSt. John of God Hospital Comment on above:Performed By: #### VBG #### [facility] ([address] [place] [address] VIRPOC RAVINDRA'S TESTN/ANormalProMethodist Hospital NortheastComment on above:Performed By: #### VBG #### [facility] ([address] [place] [address] VIRSAMPLE SITEN/ANormalProMethodist Hospital NortheastCompontiac general hospital on above:Performed By: #### VBG #### [facility] ([facility]) [address] [place] [address]. [place] [address] VIRSAMPLE TYPEVENOUSNoWhite HospitalCompontiac general hospital on above:Performed By: #### VBG #### [facility] ([facility]) [address] [place] [address]. [place] [address] VIRSOURCE OF OXYGENNCNormalSt. John of God HospitalCompontiac general hospital on above:Performed By: #### VBG #### [facility] ([address] [place] [address] VIRBLOOD GAS, VENOUSVBG BLOOD GAS, VENOUS CancelledNormal [facility] WITH AUTO DIFFERENTIALon 62-26-2052VHJRQZCAV ABSOLUTE COUNT (10*3/UL) BY AUTOMATED COUNT0.0 10*3/uLNormal0.0-0.2[facility] on above:Result Comment: This is an appended report. These results have been appended to a previously preliminary verified report. Performed By: #### VBG #### [facility] ([address] [place] [address] VIRBASOPHILS RELATIVE PERCENT BY AUTOMATED COUNT0.2 %Normal [facility] on above:Result Comment: This is an appended report. These results have been appended to a previously preliminary verified report.Performed By: #### VBG #### [facility] ([address] [place] [address] VIRCELLAVISION ANISOCYTOSIS IN BLOOD BY LIGHT MICROSCOPY2+ [facility] on above:Result Comment: This is an appended report. These results have been appended to a previously preliminary verified report.Performed By: #### VBG #### [facility] ([address] [place] [address] VIRCELLAVISION DIFFERENTIAL TYPEAUTOMATED DIFFERENTIALNormal [facility] on above:Result Comment: This is an appended report. These results have been appended to a previously preliminary verified report.Performed By: #### VBG #### [facility] ([facility]) [address] [place] [address] VIRCELLAVISION MICROCYTES IN BLOOD BY LIGHT MICROSCOPY2+Normal [facility] on above:Result Comment: This is an appended report. These results have been appended to a previously preliminary verified report.Performed By: #### VBG #### [facility] ([address] [address] VIRCELLAVISION RBC MORPHOLOGYabnormalNormalPaulding County Hospital on above:Result Comment: This is an appended report. These results have been appended to a previously preliminary verified report.Performed By: #### VBG #### [facility] ([facility]) [address] [place] [id number] VIRCELLAVISION STOMATOCYTES IN BLOOD BY LIGHT MICROSCOPY3+ NormalPaul[facility] on above:Result Comment: This is an appended report. These results have been appended to a previously preliminary verified report.Performed By: #### VBG #### [facility] ([address] [address] VIREosinophils (Bld) [#/Vol]0.0 10*3/uLNormal0.0-0.4[facility] on above:Result Comment: This is an appended report. These results have been appended to a previously preliminary verified report. Performed By: #### VBG #### [facility] ([facility]) [address] [place] [id number] VIREOSINOPHILS RELATIVE PERCENT BY AUTOMATED COUNT0.0 %Normal [facility] on above:Result Comment: This is an appended report. These results have been appended to a previously preliminary verified report.Performed By: #### VBG #### [facility] ([address] [address] VIRErythrocyte distribution width (RBC) [Ratio]19.6 %High 11.5-15[facility] HospitalComment on above:Performed By: #### VBG #### [facility] ([address] [address] VIRHematocrit (Bld) [Volume fraction]27.7 %Sld60-62LlaZxixbkMethodist Hospital NortheastComment on above:Performed By: #### VBG #### [facility] ([address] [address] VIRHemoglobin (Bld) [Mass/Vol]8.2 g/dLLow11.7-15.5PMetroHealth Parma Medical CenterComment on above:Performed By: #### VBG #### [facility] ([address] [address] VIRLYMPHOCYTES ABSOLUTE COUNT (10*3/UL) BY AUTOMATED COUNT0.5 10*3/uLLow1.0-3.5PMetroHealth Parma Medical CenterComment on above:Result Comment: This is an appended report. These results have been appended to a previously prelimi nary verified report.Performed By: #### VBG #### [facility] ([address] [address] VIRLYMPHOCYTES RELATIVE PERCENT BY AUTOMATED COUNT5.3 %Normal [facility] HospitalCompontiac general hospital on above:Result Comment: This is an appended report. These results have been appended to a previously preliminary verified report.Performed By: #### VBG #### [facility] ([address] [address] VIRMCH (RBC) [Entitic mass]19.4 qrQhi05-98CepUqxybfMethodist Hospital NortheastComment on above:Performed By: #### VBG #### [facility] ([place] [id number] [facility] [place] [address] VIRMCHC (RBC) [Mass/Vol]29.7 g/lLXfa76-22MzbCevyreMethodist Hospital NortheastComment on above:Performed By: #### VBG #### [facility] ([address] [address] VIRMCV (RBC) [Entitic vol]65 cPBku53-735VgcXedlsrMethodist Hospital NortheastComment on above:Performed By: #### VBG #### [facility] ([address] [address] VIRMONOCYTES ABSOLUTE COUNT (10*3/UL) BY AUTOMATED COUNT0.2 10*3/uLNormal0.0-0.9[facility] on above:Result Comment: This is an appended report. These results have been appended to a previously preliminary verified report.Performed By: #### VBG #### [facility] ([address] [address] VIRMONOCYTES RELATIVE PERCENT BY AUTOMATED COUNT2.3 %Normal [facility] God HospitalCompontiac general hospital on above:Result Comment: This is an appended report. These results have been appended to a previously preliminary verified report.Performed By: #### VBG #### [facility] ([address] [address] VIRNEUTROPHILS ABSOLUTE COUNT BY AUTOMATED COUNT8.3 10*3/uL High1.5-6.6ProMethodist Hospital NortheastCompontiac general hospital on above:Result Comment: This is an appended report. These results have been appended to a previously preliminary verified report.Performed By: #### VBG #### [facility] ([address] [address] VIRNEUTROPHILS RELATIVE PERCENT BY AUTOMATED COUNT92.2 %Normal [facility] God HospitalCompontiac general hospital on above:Result Comment: This is an appended report. These results have been appended to a previously preliminary verified report.Performed By: #### VBG #### [facility] ([address] [address] VIRPlatelet mean volume (Bld) [Entitic vol]7.[address]7-12 [address] [facility] of God HospitalComment on above:Performed By: #### VBG #### [facility] ([address] [address] VIRPlatelets (Bld) [#/Vol]238 10*3/oPDtrqcx589-200XstQatqclSt. John of God HospitalComment on above:Performed By: #### VBG #### [facility] ([address] [address] VIRRBC COUNT4.24 X10E12/LNormal3.8-5.2ProMedica Lanterman Developmental CenterComment on above:Performed By: #### VBG #### [facility] ([address] [address] VIRWBC (Bld) [#/Vol]9.1 10*3/uLNormal4-11St. [facility] of God HospitalComment on above:Performed By: #### VBG #### [facility] ([address] [address] VIRLOWER RESP CULTURE SPUTUM CULTURE INC GRAM STAINon 85-17-4200CNCCI RESP CULTURE SPUTUM CULTURE INC GRAM STAINCULTURE RESULTS CULTURE CANCELLED. SPECIMEN DOES NOT MEET CRITERIA FOR CULTURING. PLEASE REORDER AND RESUBMIT. GRAM STAIN >25 Squamous Epithelial Cells/LPF with Mixed Bacterial Types Seen. Regarded as Saliva not SputumNormalSt. John of God HospitalComment on above:Performed By: #### LACTS #### [facility] ([address] [address] VIRPHOSPHORUSon 18-10-3005Spgiddfgy [Mass/Vol]2.3 mg/dLLow 2.4-4.9ProMethodist Hospital NortheastComment on above:Performed By: #### VBG #### [facility] ([facility]) [address] [place] [address] [place] [address] VIRB-TYPE NATRIURETIC PEPTIDEon 47-60-8702Psxqywrxixh peptide B (Bld) [Mass/Vol]259 pg/mLHigh<=100ProMethodist Hospital NortheastComment on above: Performed By: #### BMP #### [facility] ([facility]) [address] [place] [address] VIRBEDSIDE GLUCOSEon 54-44-3442Gueyxij [Mass/Vol]125 mg/dLHigh 65-99ProMethodist Hospital NortheastComment on above:Performed By: #### VBG #### [facility] ([address] [place] [address] VIRGlucose [Mass/Vol]165 mg/cYAyef78-64HyqFyzjxc [facility]remont HospitalComment on above:Performed By: #### VBG #### [facility] ([address] [place] [address] VIRGlucose [Mass/Vol]196 mg/kLPeji94-73TyxOhzdtx [facility] HospitalComment on above:Performed By: #### BMP #### [facility] ([facility]) [address] [place] [address] VIRGlucose [Mass/Vol]167 mg/vMBzuf68-96PwzGntbfe [facility] HospitalComment on above:Performed By: #### BMP #### [facility] ([facility]) [address] [place] [address] VIRBLOOD GAS, VENOUSon 16-29-9141RSBE,EXCESS7.0 mmol/LHigh 0.0-2.0ProMethodist Hospital NortheastComment on above:Performed By: #### BMP #### [facility] ([facility]) [address] [place] [address] VIRHCO3 (Bld) [Moles/Vol]36.1 mmol/LHigh20.0-24.0St. [facility] of God HospitalComment on above:Performed By: #### BMP #### [facility] ([facility]) [address] [place] [address] VIRINSP. O2 CONC.50 %[facility] HospitalComment on above:Performed By: #### BMP #### [facility] ([facility]) [address] [place] [address] VIROxygen saturation in Blood38.0 %[facility] Orrville HospitalComment on above:Performed By: #### BMP #### [facility] ([facility]) [address] [place] [address] VIRPCO2 ILKSLW88.0 asWiKvgp35.0-50.0[facility] Comment on above:Performed By: #### BMP #### [facility] ([facility]) [address] [place] [address] VIRPH VENOUS7.990Ucn9.320-7.420[facility] Comment on above:Performed By: #### BMP #### [facility] ([facility]) [address] [place] [address] VIRPO2 RCRGJQ58 ciInZec24-19SwcUdzlwqSt. John of God HospitalComment on above:Performed By: #### BMP #### [facility] ([facility]) [address] [place] [address] VIRPOC RAVINDRA'S TESTN/ANormalSt. John of God HospitalComment on above:Performed By: #### BMP #### [facility] ([facility]) [address] [place] [address] VIRSAMPLE SITEN/ANormalProMethodist Hospital NortheastComment on above:Performed By: #### BMP #### [facility] ([facility]) [address] [place] [address] VIRSAMPLE TYPEVENOUSNormalSt. John of God HospitalComment on above:Performed By: #### BMP #### [facility] ([facility]) [address] [place] [address] VIRSOURCE OF OXYGENNCNormalSt. John of God HospitalComment on above:Performed By: #### BMP #### [facility] ([facility]) [address] [place] [address] VIRBLOOD GAS, VENOUSVBG BLOOD GAS, VENOUS CancelledNormal St. [facility] HospitalBASE,EXCESS6.0 mmol/LHigh0.0-2.0St. [facility] of God HospitalComment on above:Performed By: #### VBG ####[facility] ([facility])[address] [facility] [place] [address] VIRHCO3 (Bld) [Moles/Vol]38.1 mmol/LHigh20.0-24.0St. [facility] HospitalComment on above:Performed By: #### VBG ####[facility] ([facility])[address] [place] [address] VIRINSP. O2 CONC.40 %[facility] Comment on above:Performed By: #### VBG ####[facility] ([facility])[address] [place] [address].[place] [address] VIROxygen saturation in Blood38.0 % [facility] HospitalComment on above:Performed By: #### VBG ####[facility] ([facility])[address] [place] [address].[place], [place] [address] VIRPCO2 XJWNVD618.3 quHpMfvh83.0-50.0St[facility] HospitalComment on above:Performed By: #### VBG ####[facility] ([facility])[address] [place] [address].[place] [address] VIRPH VENOUS7.091Cpe0.320-7.420ProMedica Chaves HospitalComment on above:Performed By: #### VBG ####[facility] ([facility])[address] [place] [address] [place] [address] VIRPO2 YWTZGW23 mmHg Ayl69-61KidRadvtrMethodist Hospital NortheastComment on above:Performed By: #### VBG ####[facility] ([facility])[address] [place] [address] [address], [place] [address] VIRPOC RAVINDRA'S TESTN/ANormalSt. John of God HospitalComment on above: Performed By: #### VBG ####[facility] ([facility])[address] [place] [address] [place] [address] VIRSAMPLE SITEN/[facility] Comment on above:Performed By: #### VBG ####[facility] ([facility])[address] [place] [address] [place] [address] VIRSAMPLE TYPEVENOUSNormalSt. John of God HospitalComment on above:Performed By: #### VBG ####[facility] ([facility])[address] [place] [address] [place] [address] VIRSOURCE OF OXYGEN NPPVNoWhite HospitalComment on above:Performed By: #### VBG ####[facility] ([facility])[address] [place] [address] [place], [place] [address] VIRBLOOD GAS, VENOUSVBG BLOOD GAS, VENOUS CancelledNormalSt. John of God HospitalCB WITH AUTO DIFFERENTIALon 72-61-3145Mgbimggioa stippling LM Ql (Bld) 1+NormalProMethodist Hospital NortheastComment on above:Result Comment: This is an appended report. These results have been appended to a previously preliminary verified report.Performed By: #### BMP #### [facility] ([facility]) [address] [place] [address] VIRBASOPHILS ABSOLUTE COUNT (10*3/UL) BY AUTOMATED COUNT0.0 10*3/uLNormal0.0-0.2ProMedica [facility]terman Developmental CenterCompontiac general hospital on above:Result Comment: This is an appended report. These results have been appended to a previously preliminary verified report.Performed By: #### BMP #### [facility] ([facility]) [address] [place] [address] VIRBASOPHILS RELATIVE PERCENT BY AUTOMATED COUNT0.2 %Normal [facility] God HospitalCompontiac general hospital on above:Result Comment: This is an appended report. These results have been appended to a previously preliminary verified report.Performed By: #### BMP #### [facility] ([facility]) [address] [place] [address] VIRCELLAVISION DIFFERENTIAL TYPEAUTOMATED DIFFERENTIALNoal St. [facility] of [facility] HospitalCompontiac general hospital on above:Result Comment: This is an appended report. These results have been appended to a previously preliminary verified report.Performed By: #### BMP #### [facility] ([facility]) [address] [place] [address] VIRCELLAVISION ELLIPTOCYTES IN BLOOD BY LIGHT MICROSCOPY1+ NormalSt. John of God HospitalCompontiac general hospital on above:Result Comment: This is an appended report. These results have been appended to a previously preliminary verified report.Performed By: #### BMP #### [facility] ([facility]) [address] [place] [address] VIRCELLAVISION POLYCHROMASIA IN BLOOD BY LIGHT MICROSCOPY1+ NormalProNexus Children's Hospital [place] on above:Result Comment: This is an appended report. These results have been appended to a previously preliminary verified report.Performed By: #### BMP #### [facility] ([facility]) [address] [place] [address] VIRCELLAVISION STOMATOCYTES IN BLOOD BY LIGHT MICROSCOPY1+ NormalPaulding County Hospital on above:Result Comment: This is an appended report. These results have been appended to a previously preliminary verified report.Performed By: #### BMP #### [facility] ([facility]) [address] [place] [address] VIREosinophils (Bld) [#/Vol]0.0 10*3/uLNormal0.0-0.4[facility] on above:Result Comment: This is an appended report. These results have been appended to a previously preliminary verified report. Performed By: #### BMP #### [facility] ([facility]) [address] [place] [address] VIREOSINOPHILS RELATIVE PERCENT BY AUTOMATED COUNT0.0 %Normal [facility] HospitalCompontiac general hospital on above:Result Comment: This is an appended report. These results have been appended to a previously preliminary verified report.Performed By: #### BMP #### [facility] ([facility]) [address] [place] [address] VIRErythrocyte distribution width (RBC) [Ratio]20.2 %High 11.5-15ProMethodist Hospital NortheastComment on above:Performed By: #### BMP #### [facility] ([facility]) [address] [place] [address] VIRHematocrit (Bld) [Volume fraction]34.4 %Xxq38-91WwsKkkkgbSt. John of God HospitalComment on above:Performed By: #### BMP #### [facility] ([facility]) [address] [place] [address] VIRHemoglobin (Bld) [Mass/Vol]9.8 g/dLLow11.7-15.5PMetroHealth Parma Medical CenterCompontiac general hospital on above:Performed By: #### BMP #### [facility] ([facility]) [address] [place] [address] VIRLYMPHOCYTES ABSOLUTE COUNT (10*3/UL) BY AUTOMATED COUNT0.5 10*3/uLLow1.0-3.5PMetroHealth Parma Medical CenterCompontiac general hospital on above:Result Comment: This is an appended report. These results have been appended to a previously prelimi nary verified report.Performed By: #### BMP #### [facility] ([facility]) [address] [place] [address] VIRLYMPHOCYTES RELATIVE PERCENT BY AUTOMATED COUNT3.7 %Normal [facility] HospitalCompontiac general hospital on above:Result Comment: This is an appended report. These results have been appended to a previously preliminary verified report.Performed By: #### BMP #### [facility] ([facility]) [address] [place] [address] VIRMCH (RBC) [Entitic mass]19.1 mbSke09-73ZckOaakjnMethodist Hospital NortheastComment on above:Performed By: #### BMP #### [facility] ([facility]) [address] [place] [address] VIRMCHC (RBC) [Mass/Vol]28.5 g/bAQdj75-07BjyQumkcnMethodist Hospital NortheastComment on above:Performed By: #### BMP #### [facility] ([facility]) [address] [place] [address] VIRMCV (RBC) [Entitic vol]67 fICbn86-616QfoGolflsMethodist Hospital NortheastComment on above:Performed By: #### BMP #### [facility] ([facility]) [address] [place] [address] VIRMONOCYTES ABSOLUTE COUNT (10*3/UL) BY AUTOMATED COUNT0.9 10*3/uLNormal0.0-0.9St. [facility] HospitalCompontiac general hospital on above:Result Comment: This is an appended report. These results have been appended to a previously preliminary verified report.Performed By: #### BMP #### [facility] ([facility]) [address] [place] [address] VIRMONOCYTES RELATIVE PERCENT BY AUTOMATED COUNT6.7 %Normal [facility] HospitalCompontiac general hospital on above:Result Comment: This is an appended report. These results have been appended to a previously preliminary verified report.Performed By: #### BMP #### [facility] ([facility]) [address] [place] [address] VIRNEUTROPHILS ABSOLUTE COUNT BY AUTOMATED COUNT12.0 10*3/uL High1.5-6.6St[facility] HospitalCompontiac general hospital on above:Result Comment: This is an appended report. These results have been appended to a previously preliminary verified report.Performed By: #### BMP #### [facility] ([facility]) [address] [place] [address] VIRNEUTROPHILS RELATIVE PERCENT BY AUTOMATED COUNT89.4 %Normal [facility] HospitalCompontiac general hospital on above:Result Comment: This is an appended report. These results have been appended to a previously preliminary verified report.Performed By: #### BMP #### [facility] ([facility]) [address] [place] [address] VIRPlatelet mean volume (Bld) [Entitic vol]6.9 fLLow7-12 [facility] God HospitalComment on above:Performed By: #### BMP #### [facility] ([facility]) [address] [place] [address] VIRPlatelets (Bld) [#/Vol]354 10*3/hXIqunno155-270YejLzsecj [facility]ont HospitalComment on above:Performed By: #### BMP #### [facility] ([facility]) [address] [place] [address] VIRRBC COUNT5.13 X10E12/LNormal3.8-5.2PMetroHealth Par[facility] Medical CenterCompontiac general hospital on above:Performed By: #### BMP #### [facility] ([facility]) [address] [place] [address] VIRWBC (Bld) [#/Vol]13.5 10*3/uLHigh4-11St[facility] HospitalCompontiac general hospital on above:Performed By: #### BMP #### [facility] ([facility]) [address] [place] [address] VIRCOMPREHENSIVE METABOLIC PANELon 75-29-7686Fxvhofc [Mass/Vol] 3.7 g/dLNormal3.2-5.3PMetroHealth Parma Medical CenterComment on above:Performed By: #### CMP ####[facility] ([place] [address] [place] [address] VIRALP [Catalytic activity/Vol]138 U/HLizt31-574PfsGvqnmuMethodist Hospital NortheastComment on above:Performed By: #### CMP ####[facility] ([address] [place] [address] VIRALT [Catalytic activity/Vol]36 U/LHigh<=31PMetroHealth Parma Medical CenterComment on above:Performed By: #### CMP ####[facility] ([address] [place] [address] VIRAnion gap [Moles/Vol]9 mmol/LNormal5-15ProMethodist Hospital NortheastComment on above:Performed By: #### CMP ####[facility] ([address] [place] [address] VIRAST [Catalytic activity/Vol]38 U/LNormal<=41ProMethodist Hospital NortheastComment on above: Performed By: #### CMP ####[facility] ([address] [place] [address] VIRBilirubin [Mass/Vol]0.3 mg/dLNormal0.3-1.2 [facility] God HospitalComment on above:Performed By: #### CMP ####[facility] ([address] [place] [address] VIRCalcium [Mass/Vol]9.0 mg/dLNormal8.5-10.5PMetroHealth Parma Medical CenterComment on above: Performed By: #### CMP ####[facility] ([place] [address] [place] [address] VIRChloride [Moles/Vol]96 mmol/GDst07-339SjvQiozrpMethodist Hospital NortheastComment on above:Performed By: #### CMP ####[facility] ([facility])[address] [place] [address].[place] [address] VIRCO2 [Moles/Vol]36 mmol/OYufu83-40SqhHxzfft Lanterman Developmental CenterComment on above:Performed By: #### CMP ####[facility] ([facility])[address] [place] [address] VIRCreatinine [Mass/Vol]1.45 mg/dLHigh0.40-1.00[facility] Comment on above:Result Comment: METHOD TRACEABLE TO IDMS STANDARDPerformed By: #### CMP ####[facility] ([address] [place] [address] [address] VIRGFR/1.73 sq M.predicted among non-blacks MDRD (S/P/Bld) [Vol rate/Area]41 mL/min/{1.73_m2}Low>=60ProMethodist Hospital NortheastComment on above:Result Comment: eGFR not reported due to non-numeric value for Creatinine. Reported eGFR is based on the CKD-EPI 2021 equation that does not use a race coefficient.Performed By: #### CMP ####[facility] ([address] [place] [address] [address] VIRGlucose [Mass/Vol]133 mg/bLXumw33-93YblYyxbxlMethodist Hospital NortheastComment on above:Performed By: #### CMP ####[facility] ([facility])[address] [place] [address] VIRPotassium [Moles/Vol]4.2 mmol/LNormal3.5-5.0[facility] Comment on above:Performed By: #### CMP ####[facility] ([facility])[address] [place] [address] VIRProtein [Mass/Vol]7.8 g/dLNormal 6.0-8.0ProMethodist Hospital NortheastComment on above:Performed By: #### CMP ####[facility] ([facility])[address], [place] [address] VIRSodium [Moles/Vol]141 mmol/EGoctkh140-156UkyAfncwnSt. [facility] of God Hospital Comment on above:Performed By: #### CMP ####[facility] ([facility])[address] [place] [address] VIRUrea nitrogen [Mass/Vol]21 mg/dL Normal5-27ProMethodist Hospital NortheastComment on above:Performed By: #### CMP ####[facility] ([facility], [place] [address] VIRLACTATE W/ REFLEXon 35-17-5234JAEAWLG W/REFLEX1.0 mmol/LNormal0.4-2.0 [facility] God HospitalComment on above:Order Comment: Result did not trigger repeat Lactate,re-order if needed.Performed By: #### LACTS ####[facility] ([facility])[address] [place] [address] VIR PHOSPHORUSon 19-66-2626Snrhoxqwp [Mass/Vol]6.1 mg/dLHigh2.4-4.9ProMethodist Hospital NortheastComment on above:Performed By: #### BMP #### [facility] ([facility]) [address] [place] [address] VIRPROCALCITONINon 42-86-1005FXZGGEFGARMHC1.13 ng/mLHigh<0.05 [facility] of God HospitalComment on above:Order Comment: <0.50 ng/mL - Low risk of severe sepsis and/or septic shock.<2.00 ng/mL - Recommend retesting within 6-24 hours.>2.00 ng/mL - High risk of sepsis and/or septic shock.Performed By: #### BMP #### [facility] ([facility]) [address] [place] [address] VIRTROP I, HIGH SENSITIVITY 1 HOURon [id number] I, HIGH [id number] ng/LHigh<16ProMethodist Hospital NortheastComment on above:Order Comment: Elevations of hs-Troponin may be due to causesother than myocardial ischemia.Recommend serial hs-Troponin testing be performed.For the initial evaluation and management of chestpain patients, refer to the algorithms linked below.Emergency Patient:[email or web address]:[email or web address] By: #### BMP #### [facility] ([facility]) [address] [place] [address] VIRTROPONIN I, HIGH SENSITIVITY 0 HOURon [id number] I, HIGH [id number] ng/LHigh<16ProMethodist Hospital NortheastComment on above: Performed By: #### BMP #### [facility] ([facility]) [address] [place] [address] VIRXR CHEST 1 VWon [id number] CHEST 1 VWXR CHEST 1 VW Single view chest History:SOB Difficulty breathing, shortness of breath Comparison: 12/03/2024 Findings: Single portable view of the chest. Right lower lung atelectasis versus pneumonia, stable. Stable cardiac mediastinal silhouette. Prior median sternotomy. Impression: No significant interval change. Finalized by Victor Hugo Kim MD on 12/04/2024 7:13 AMNormalProMethodist Hospital NortheastB-TYPE NATRIURETIC PEPTIDEon [id number] peptide B (Bld) [Mass/Vol]196 pg/mLHigh<=100[facility] on above:Performed By: #### BNP ####[facility] ([address] [place] [address] VIRBLOOD CULTUREon [id number] identified Cx Nom (Bld)CULTURE RESULTS NO GROWTH 5 DAYSNormalProMedica Chaves HospitalComment on above:Order Comment: *SIRS Criteria: (must [...] source who are improvingPerformed By: #### BC ####[facility] ([facility])[address] [facility], [place] [address] VIRBacteria identified Cx Nom (Bld)CULTURE RESULTS NO GROWTH 5 DAYSAultman Orrville HospitalCompontiac general hospital on above:Order Comment: *SIRS Criteria: (must display 2 without other explanation)-Temperature < 36 or >38-Pulse >90-Resp rate >20-WBC less than 4K or greater than 12KRepeat blood cultures not needed:-To document that a blood culture is a contaminant when 1 of 2 bottles is positive for a common contaminant (already listed in [facility] with the culture result)-To document clearance of gram negative bacteremia in patients with suspected urinary source who are improvingPerformed By: #### BC ####[facility] ([facility])[address] [facility], [place] [address] VIRBLOOD GAS, VENOUSon [id number],EXCESS6.0 mmol/LHigh0.0-2.0ProMethodist Hospital NortheastComment on above:Performed By: #### VBG #### [facility] ([facility]) [address] [place] [address] VIRHCO3 (Bld) [Moles/Vol]33.9 mmol/LHigh20.0-24.0[facility] HospitalCompontiac general hospital on above:Performed By: #### VBG #### [facility] ([facility]) [address] [place] [address] VIROxygen saturation in Blood50.0 %NormalProMethodist Hospital NortheastComment on above:Performed By: #### VBG #### [facility] ([address] [place] [address] VIRPCO2 YWHPHZ09.5 zuTaQiln42.0-50.0[facility] Comment on above:Performed By: #### VBG #### [facility] ([address] [place] [address] VIRPH VENOUS7.235Mdh9.320-7.420[facility] Comment on above:Performed By: #### VBG #### [facility] ([address] [place] [address] VIRPO2 OAPESS29 hmCkBkpuir10-85GfxAzteoiSt. John of God Hospital Comment on above:Performed By: #### VBG #### [facility] ([address] [place] [address] VIRPOC RAVINDRA'S TESTN/ANormalProMethodist Hospital NortheastComment on above:Performed By: #### VBG #### [facility] ([address] [place] [address] VIRSAMPLE SITEN/ANormalSt. John of God HospitalComment on above:Performed By: #### VBG #### [facility] ([address] [place] [address] VIRSAMPLE TYPEVENOUSNormalSt. John of God HospitalComment on above:Performed By: #### VBG #### [facility] ([address] [address] VIRSOURCE OF OXYGENNCNormalSt. John of God HospitalComment on above:Performed By: #### VBG #### [facility] ([address] [place] [address] VIRBLOOD GAS, VENOUSVBG BLOOD GAS, VENOUS CancelledNormal [facility] WITH AUTO DIFFERENTIALon [id number] ABSOLUTE COUNT (10*3/UL) BY AUTOMATED COUNT0.1 10*3/uLNormal0.0-0.2[facility] on above:Result Comment: This is an appended report. These results have been appended to a previously preliminary verified report. Performed By: #### CBCA #### [facility] ([address] [place] [address] VIRBASOPHILS RELATIVE PERCENT BY AUTOMATED COUNT0.8 %Normal [facility] on above:Result Comment: This is an appended report. These results have been appended to a previously preliminary verified report.Performed By: #### CBCA #### [address] [place] [address] VIRCELLAVISION ANISOCYTOSIS IN BLOOD BY LIGHT MICROSCOPY2+ NormalPaulding County Hospital on above:Result Comment: This is an appended report. These results have been appended to a previously preliminary verified report.Performed By: #### CBCA #### [facility] ([address] [place] [address] VIRCELLAVISION DIFFERENTIAL TYPEAUTOMATED DIFFERENTIALThe [facility] Hospital on above:Result Comment: This is an appended report. These results have been appended to a previously preliminary verified report.Performed By: #### CBCA #### [facility] ([address] [place] [address] VIRCELLAVISION MICROCYTES IN BLOOD BY LIGHT MICROSCOPY2+Normal [facility] on above:Result Comment: This is an appended report. These results have been appended to a previously preliminary verified report.Performed By: #### CBCA #### [facility] ([address] [place] [address] VIRCELLAVISION RBC MORPHOLOGYReviewedNormalSt. John of God HospitalCompontiac general hospital on above:Result Comment: This is an appended report. These results have been appended to a previously preliminary verified report.Performed By: #### CBCA #### [facility] ([address] [address] VIREosinophils (Bld) [#/Vol]0.1 10*3/uLNormal0.0-0.4[facility] on above:Result Comment: This is an appended report. These results have been appended to a previously preliminary verified report. Performed By: #### CBCA #### [facility] ([address] [address] VIREOSINOPHILS RELATIVE PERCENT BY AUTOMATED COUNT1.3 %Normal [facility] on above:Result Comment: This is an appended report. These results have been appended to a previously preliminary verified report.Performed By: #### CBCA #### [facility] ([address] [address] VIRErythrocyte distribution width (RBC) [Ratio]19.7 %High 11.5-15[facility] HospitalCompontiac general hospital on above:Performed By: #### CBCA #### [facility] ([address] [address] VIRHematocrit (Bld) [Volume fraction]31.1 %Ior83-59BuwZshksiMethodist Hospital NortheastComment on above:Performed By: #### CBCA #### [facility] ([address] [address] VIRHemoglobin (Bld) [Mass/Vol]9.3 g/dLLow11.7-15.5PMetroHealth Parma Medical CenterCompontiac general hospital on above:Performed By: #### CBCA #### [facility] ([address] [address] VIRLYMPHOCYTES ABSOLUTE COUNT (10*3/UL) BY AUTOMATED COUNT1.3 10*3/uLNormal1.0-3.5PPaulding County Hospital on above:Result Comment: This is an appended report. These results have been appended to a previously preliminary verified report.Performed By: #### CBCA #### [facility] ([address] [address] VIRLYMPHOCYTES RELATIVE PERCENT BY AUTOMATED COUNT11.2 %Normal [facility] God HospitalCompontiac general hospital on above:Result Comment: This is an appended report. These results have been appended to a previously preliminary verified report.Performed By: #### CBCA #### [facility] ([address] [address] VIRH (RBC) [Entitic mass]19.3 epUfz14-06KwsOtjfuuMethodist Hospital NortheastComment on above:Performed By: #### CBCA #### [facility] ([address] [address] VIRMCHC (RBC) [Mass/Vol]29.7 g/xWGon51-62OxoAiktkqSt. John of God HospitalComment on above:Performed By: #### CBCA #### [facility] ([address] [address] VIRMCV (RBC) [Entitic vol]65 jWFfb11-426GqsEplxfsMethodist Hospital NortheastComment on above:Performed By: #### CBCA #### [facility] ([address] [address] VIRMONOCYTES ABSOLUTE COUNT (10*3/UL) BY AUTOMATED COUNT0.7 10*3/uLNormal0.0-0.9[facility] on above:Result Comment: This is an appended report. These results have been appended to a previously preliminary verified report.Performed By: #### CBCA #### [facility] ([address] [address] VIRMONOCYTES RELATIVE PERCENT BY AUTOMATED COUNT5.9 %Normal [facility] God HospitalCompontiac general hospital on above:Result Comment: This is an appended report. These results have been appended to a previously preliminary verified report.Performed By: #### CBCA #### [facility] ([address] [address] VIRNEUTROPHILS ABSOLUTE COUNT BY AUTOMATED COUNT9.1 10*3/uL High1.5-6.6[facility] HospitalCompontiac general hospital on above:Result Comment: This is an appended report. These results have been appended to a previously preliminary verified report.Performed By: #### CBCA #### [facility] ([address] [address] VIRNEUTROPHILS RELATIVE PERCENT BY AUTOMATED COUNT80.8 %Normal [facility] God HospitalCompontiac general hospital on above:Result Comment: This is an appended report. These results have been appended to a previously preliminary verified report.Performed By: #### CBCA #### [facility] ([address] [address] VIRPlatelet mean volume (Bld) [Entitic vol]7.[address] fLNormal7-12 [address] [facility] HospitalCompontiac general hospital on above:Performed By: #### CBCA #### [facility] ([address] [address] VIRPlatelets (Bld) [#/Vol]391 10*3/dSZnupws941-246NgsIthnri [place] HospitalComment on above:Performed By: #### CBCA #### [facility] ([address] [address] VIRRBC COUNT4.79 X10E12/LNormal3.8-5.2PMetroHealth Parma Medical CenterCompontiac general hospital on above:Performed By: #### CBCA #### [facility] ([address] [address] VIRWBC (Bld) [#/Vol]11.3 10*3/uLHigh4-11St. [facility] of God HospitalComment on above:Performed By: #### CBCA #### [facility] ([place] [address] [place] [address] VIRCOMPREHENSIVE METABOLIC PANELon 67-09-6499Piplqqs [Mass/Vol]3.9 g/dLNormal3.2-5.3PMetroHealth Parma Medical CenterComment on above: Performed By: #### CMP #### [facility] ([place] [address] [place] [address] VIRALP [Catalytic activity/Vol]112 U/VCwprcy49-670PhaAkuybyMethodist Hospital NortheastComment on above:Performed By: #### CMP #### [place] [address] [place] [address] VIRALT [Catalytic activity/Vol]24 U/LNormal<=31PMetroHealth Parma Medical CenterComment on above:Performed By: #### CMP #### [facility] ([place] [address] [place] [address] VIRAnion gap [Moles/Vol]5 mmol/LNormal5-15ProMethodist Hospital NortheastComment on above:Performed By: #### CMP #### [facility] ([place] [address] [place] [address] VIRAST [Catalytic activity/Vol]24 U/LNormal<=41ProMethodist Hospital NortheastComment on above:Performed By: #### CMP #### [facility] ([place] [address] [place] [address] VIRBilirubin [Mass/Vol]0.3 mg/dLNormal0.3-1.2PMetroHealth Parma Medical CenterComment on above:Performed By: #### CMP #### [facility] ([place] [address] [place] [address] VIRCalcium [Mass/Vol]8.4 mg/dLLow8.5-10.5PMetroHealth Parma Medical CenterComment on above:Performed By: #### CMP #### [facility] ([address] [place] [address] VIRChloride [Moles/Vol]101 mmol/DHcouzr55-463SpyWivqhnMethodist Hospital NortheastComment on above:Performed By: #### CMP #### [facility] ([address] [place] [address] VIRCO2 [Moles/Vol]34 mmol/ZMzcd98-02WruQjgjlvMetroHealth Par[facility] Medical Center Comment on above:Performed By: #### CMP #### [facility] ([address] [address] VIRCreatinine [Mass/Vol]1.39 mg/dLHigh0.40-1.00ProMethodist Hospital NortheastComment on above:Result Comment: METHOD TRACEABLE TO IDMS STANDARDPerformed By: #### CMP #### [facility] ([address] [address] VIRGFR/1.73 sq M.predicted among non-blacks MDRD (S/P/Bld) [Vol rate/Area]43 mL/min/{1.73_m2}Low>=60ProMethodist Hospital NortheastComment on above:Result Comment: eGFR not reported due to non-numeric value for Creatinine. Reported eGFR is based on the CKD-EPI 2021 equation that does not use a race coefficient.Performed By: #### CMP #### [facility] ([address] [place] [address] VIRGlucose [Mass/Vol]130 mg/sYCmvd74-30JmnJzaudeMethodist Hospital NortheastComment on above:Performed By: #### CMP #### [facility] ([address] [address] VIRPotassium [Moles/Vol]3.5 mmol/LNormal3.5-5.0ProMethodist Hospital NortheastComment on above:Performed By: #### CMP #### [facility] ([facility]) [address] [place] [address] VIRProtein [Mass/Vol]7.7 g/dLNormal6.0-8.0ProMethodist Hospital NortheastComment on above:Performed By: #### CMP #### [facility] ([address] [address] VIRSodium [Moles/Vol]140 mmol/YGjadtl604-413OatRkccwu [facility] HospitalComment on above:Performed By: #### CMP #### [facility] ([address] [address] VIRUrea nitrogen [Mass/Vol]16 mg/dLNormal5-27ProMethodist Hospital NortheastComment on above:Performed By: #### CMP #### [facility] ([address] [address] VIRCT CTA CHESTon [id number] CTA CHESTCT CTA CHEST Clinical history: Hypoxia [...] Kai Finn MD on 12/03/2024 4:15 AMNormalProMedica Chaves HospitalLACTATE W/ REFLEXon [id number] W/REFLEX0.8 mmol/LNormal0.4-2.0 [facility] HospitalCompontiac general hospital on above:Order Comment: Result did not trigger repeat Lactate, re-order if needed.Performed By: #### LACTS #### [facility] ([address] [place] [address] VIRTROP I, HIGH SENSITIVITY 1 HOURon [id number] I, HIGH SENSITIVITY7 ng/LNormal<16ProMethodist Hospital NortheastCompontiac general hospital on above: Performed By: #### [email or web address] ####[facility] ([address] [place] [address] VIRTROPONIN I, HIGH SENSITIVITY 0 HOURon 12-03-2024 TROPONIN I, HIGH SENSITIVITY8 ng/LNormal<16ProMethodist Hospital NortheastComment on above:Performed By: #### TNIHS0 #### [facility] ([address] [place] [address] VIRXR CHEST 1 VWon [id number] CHEST 1 VWXR CHEST 1 VW XR [...] by Kai Finn MD on 12/03/2024 3:36 AMNormalProMethodist Hospital NortheastBASI METABOLIC PANELon 84-19-6512Jafie gap [Moles/Vol]8 mmol/LNormal 5-15St. [facility] God HospitalComment on above:Performed By: #### BMP #### [facility] ([facility]) [address] [place] [address] VIRCalcium [Mass/Vol]9.0 mg/dLNormal8.5-10.5PMetroHealth Parma Medical CenterComment on above:Performed By: #### BMP #### [facility] ([facility]) [address] [place] [address] VIRChloride [Moles/Vol]103 mmol/WImplwh95-530NrkIrujdmMethodist Hospital NortheastComment on above:Performed By: #### BMP #### [facility] ([facility]) [address] [place] [address] VIRCO2 [Moles/Vol]29 mmol/CQaxdqo48-17EgiEaiciuMetroHealth Parma Medical CenterComment on above:Performed By: #### BMP #### [facility] ([facility]) [address] [place] [address] VIRCreatinine [Mass/Vol]1.15 mg/dLHigh0.40-1.00St. [facility] of God HospitalComment on above:Result Comment: METHOD TRACEABLE TO IDAL STANDARDPerformed By: #### BMP #### [facility] ([facility]) [address] [place] [address] VIRGFR/1.73 sq M.predicted among non-blacks MDRD (S/P/Bld) [Vol rate/Area]54 mL/min/{1.73_m2}Low>=60ProMethodist Hospital NortheastComment on above: Result Comment: Reported eGFR is based on the CKD-EPI 2020 equation that does not use a race coefficient.Performed By: #### BMP #### [facility] ([facility]) [address] [place] [address] VIRGlucose [Mass/Vol]83 mg/oIVjckus97-39RcxZxgvjwMethodist Hospital NortheastComment on above:Performed By: #### BMP #### [facility] ([facility]) [address] [place] [address] VIRPotassium [Moles/Vol]4.1 mmol/LNormal3.5-5.0ProMethodist Hospital NortheastComment on above:Performed By: #### BMP #### [facility] ([facility]) [address] [place] [address] VIRSodium [Moles/Vol]140 mmol/BUzqfwi882-130QbzJikxuo [facility] HospitalComment on above:Performed By: #### BMP #### [facility] ([facility]) [address] [place] [address] VIRUrea nitrogen [Mass/Vol]15 mg/dLNormal5-27ProMethodist Hospital NortheastComment on above:Performed By: #### BMP #### [facility] ([facility]) [address] [place] [address] VIRXR KNEE RT 3 VWSon [id number] KNEE RT 3 VWSXR KNEE RT 3 [...] by Kai Finn MD on 11/29/2024 2:28 PMNormalProPampa Regional Medical Center WITH AUTO DIFFERENTIALon 88-71-2736Ezna form neutrophils/100 WBC (Bld)4 %NormalFloyd Polk Medical Center PPGComment on above:Result Comment: This is an appended report. These results have been appended to a previously preliminary verified report.Performed By: #### CBCA #### [facility] ([facility]) [address] [place] [address] VIRCELLAVISION BASOPHILS ABSOLUTE COUNT (10*3/UL) BY MANUAL COUNT0.1 10*3/uLNormal0.0-0.2POhioHealth Pickerington [facility] PPGComment on above: Result Comment: This is an appended report. These results have been appended to a previously preliminary verified report.Performed By: #### CBCA #### [facility] ([facility]) [address] [place] [address] VIRCELLAVISION BASOPHILS RELATIVE PERCENT BY MANUAL COUNT1 % NormalSt. John of God Hospital [facility]ulatory PPGComment on above:Result Comment: This is an appended report. These results have been appended to a previously preliminary verified report.Performed By: #### CBCA #### [facility] ([facility]) [address] [place] [address] VIRCELLAVISION DIFFERENTIAL TYPECELLAVISION DIFFERENTIALNormal [facility] PPGComment on above:Result Comment: This is an appended report. These results have been appended to a previously preliminary verified report.Performed By: #### CBCA #### [facility] ([facility]) [address] [place] [address] VIRCELLAVISION EOSINOPHILS ABSOLUTE COUNT (10*3/UL) BY MANUAL COUNT0.2 10*3/uLNormal0.0-0.4[facility] PPGComment on above: Result Comment: This is an appended report. These results have been appended to a previously preliminary verified report.Performed By: #### CBCA #### [facility] ([facility]) [address] [place] [address] VIRCELLAVISION EOSINOPHILS PERCENT BY MANUAL COUNT2 %Normal [facility] PPGComment on above:Result Comment: This is an appended report. These results have been appended to a previously preliminary verified report.Performed By: #### CBCA #### [facility] ([facility]) [address] [place] [address] VIRCELLAVISION LYMPHOCYTES ABSOLUTE COUNT (10*3/UL) BY MANUAL COUNT1.9 10*3/uLNormal1.0-3.5POhioHealth Pickerington Methodist [facility] PPGComment on above: Result Comment: This is an appended report. These results have been appended to a previously preliminary verified report.Performed By: #### CBCA #### [facility] ([facility]) [address] [place] [address] VIRCELLAVISION LYMPHOCYTES RELATIVE PERCENT BY MANUAL COUNT21 % [facility] PPGComment on above:Result Comment: This is an appended report. These results have been appended to a previously preliminary verified report.Performed By: #### CBCA #### [facility] ([facility]) [address] [place] [address] VIRCELLAVISION MONOCYTES ABSOLUTE COUNT (10*3/UL) IN BLOOD BY MANUAL COUNT0.2 10*3/uLNormal0.0-0.9[facility] PPGComment on above:Result Comment: This is an appended report. These results have been appended to a previously preliminary verified report.Performed By: #### CBCA #### [facility] ([facility]) [address] [place] [address] VIRCELLAVISION MONOCYTES RELATIVE PERCENT BY MANUAL COUNT2 % NormalSt. John of God Hospital Ambulatory PPGComment on above:Result Comment: This is an appended report. These results have been appended to a previously preliminary verified report.Performed By: #### CBCA #### [facility] ([facility]) [address] [place] [address] VIRCELLAVISION NEUTROPHILS ABSOLUTE COUNT BY MANUAL COUNT6.8 10*3/uLHigh1.5-6.6[facility] PPGComment on above:Result Comment: This is an appended report. These results have been appended to a previously preliminary verified report.Performed By: #### CBCA #### [facility] ([facility]) [address] [place] [address] VIRCELLAVISION NEUTROPHILS RELATIVE PERCENT BY MANUAL COUNT70 % NormalSt. John of God Hospital Ambulatory PPGComment on above:Result Comment: This is an appended report. These results have been appended to a previously preliminary verified report.Performed By: #### CBCA #### [facility] ([facility]) [address] [place] [address] VIRCELLAVISION RBC MORPHOLOGYReviewedNormalSt. John of God Hospital Ambulatory PPGComment on above:Result Comment: This is an appended report. These results have been appended to a previously preliminary verified report. Performed By: #### CBCA #### [facility] ([facility]) [address] [place] [address] VIRErythrocyte distribution width (RBC) [Ratio]20.4 %High 11.5-15[facility] PPGComment on above:Performed By: #### CBCA #### [facility] ([facility]) [address] [place] [address] VIRHematocrit (Bld) [Volume fraction]32.9 %Ihz21-33OhjVwukxaSt. John of God Hospital Ambulatory PPGComment on above:Performed By: #### CBCA #### [facility] ([facility]) [address] [place] [address] VIRHemoglobin (Bld) [Mass/Vol]10.0 g/dLLow11.7-15.5POhioHealth Pickerington Methodist [facility]ulatory PPGComment on above:Performed By: #### CBCA #### [facility] ([facility]) [address] [place] [address] VIRMCH (RBC) [Entitic mass]21.2 mwMse91-24XglXdzdpm Hospital Ambulatory PPGComment on above:Performed By: #### CBCA #### [facility] ([facility]) [address] [place] [address] VIRMCHC (RBC) [Mass/Vol]30.4 g/kOHwf73-44BbrPlqiln Hospital Ambulatory PPGComment on above:Performed By: #### CBCA #### [facility] ([facility]) [address] [place] [address] VIRMCV (RBC) [Entitic vol]70 vMAqx21-901UeiNbzcjw Hospital Ambulatory PPGComment on above:Performed By: #### CBCA #### [facility] [facility] ([facility]) [address] [place] [address] VIRPlatelet mean volume (Bld) [Entitic vol]8.[address]Normal7-12 [facility] Ambulatory PPGComment on above:Performed By: #### CBCA #### [facility] ([facility]) [address] [place] [address] VIRPlatelets (Bld) [#/Vol]334 10*3/eQGpxovb927-553TslFxfmsc Hospital Ambulatory PPGComment on above:Performed By: #### CBCA #### [facility] ([facility]) [address] [place] [address] VIRRBC COUNT4.73 X10E12/LNormal3.8-5.2POhioHealth Pickerington Methodist [facility] Ambulatory PPGComment on above:Performed By: #### CBCA #### [facility] ([facility]) [address] [place] [address] VIRWBC (Bld) [#/Vol]9.1 10*3/uLNormal4-11[facility] Ambulatory PPGComment on above:Performed By: #### CBCA #### [facility] ([facility]) [address] [place] [address] VIRCBC auto differentialon 39-60-2585Lbxg form neutrophils/100 WBC (Bld)4 %[facility] SystemComment on above:This is an appended report. These results have been appended to a previously preliminary verified report. Basophils (Bld) [#/Vol]0.1 10*3/uL0.0 - 0.2 10*3/uLProMediBarnesville Hospital System Comment on above:This is an appended report. These results have been appended to a previously preliminary verified report.Basophils/100 WBC (Bld)1 %[facility] HospitalComment on above:This is an appended report. These results have been appended to a previously preliminary verified report.Differential cell count method Nom (Bld)CELLAVISION DIFFERENTIALMercy Health Urbana HospitalCompontiac general hospital on above:This is an appended report. These results have been appended to a previously preliminary verified report.Eosinophils (Bld) [#/Vol]0.2 10*3/uL0.0 - 0.4 10*3/uLMercy Health Urbana HospitalComment on above:This is an appended report. These results have been appended to a previously preliminary verified report. Eosinophils/100 WBC (Bld)2 %[facility] HospitalCompontiac general hospital on above:This is an appended report. These results have been appended to a previously preliminary verified report.Erythrocyte distribution width (RBC) [Ratio]20.4 %High11.5 - 15 %[facility] HospitalHematocrit (Bld) [Volume fraction]32.9 %Low35 - 47 % [facility] HospitalHemoglobin (Bld) [Mass/Vol]10 g/dLLow11.7 - 15.5 g/dL [facility] HospitalInterpretation and review of laboratory resultsAbnormal [facility] HospitalLymphocytes (Bld) [#/Vol]1.9 10*3/uL1.0 - 3.5 10*3/uL [facility] HospitalCompontiac general hospital on above:This is an appended report. These results have been appended to a previously preliminary verified report.MCH (RBC) [Entitic mass]21.2 pgLow27 - 34 [facility] HospitalMCHC (RBC) [Mass/Vol] 30.4 g/dLLow32 - 36 g/dLMercy Health Urbana HospitalMCV (RBC) [Entitic vol]70 fLLow80 - 100 [facility] SpringsMonocytes (Bld) [#/Vol]0.2 10*3/uL0.0 - 0.9 10*3/uLMercy Health Urbana HospitalCompontiac general hospital on above:This is an appended report. These results have been appended to a previously preliminary verified report. Monocytes/100 WBC (Bld)2 %[facility] HospitalCompontiac general hospital on above:This is an appended report. These results have been appended to a previously preliminary verified report.Neutrophils (Bld) [#/Vol]6.8 10*3/uLHigh1.5 - 6.6 10*3/uL [facility] SystemComment on above:This is an appended report. These results have been appended to a previously preliminary verified report. Neutrophils/100 WBC (Bld)70 %[facility]rb[facility] HospitalComment on above:This is an appended report. These results have been appended to a previously preliminary verified report.Platelet mean volume (Bld) [Entitic vol]8.2 fL7 - 12 [facility] Blue SpringsPlatelets (Bld) [#/Vol]334 10*3/uLSamaritan North Health Center SystemRBC (Bld) [#/Vol]4.73 10*6/uLMercy Health Urbana HospitalRBC (Bld) [#/Vol]ReviewedMercy Health Urbana HospitalComment on above:This is an appended report. These results have been appended to a previously preliminary verified report.Variant lymphocytes/100 WBC (Bld)21 %[facility] HospitalComment on above:This is an appended report. These results have been appended to a previously preliminary verified report.WBC LM Ql (Sput)9.1PDuke Lifepoint HealthcareCOMPREHENSIVE METABOLIC PANELon 36-07-4856Vipwnow [Mass/Vol]4.4 g/dLNormal 3.2-5.3POhioHealth Pickerington [facility] Ambulatory PPGComment on above:Performed By: #### CMP #### [facility] ([facility]) [address] [place] [address] VIRALP [Catalytic activity/Vol]100 U/XRmevga69-733LshEegfzm Hospital Ambulatory PPGComment on above:Performed By: #### CMP #### [facility] ([facility]) [address] [place] [address] VIRALT [Catalytic activity/Vol]33 U/LHigh<=31POhioHealth [facility]erington [facility] Ambulatory PPGComment on above:Performed By: #### CMP #### [facility] ([facility]) [address] [place] [address] VIRAnion gap [Moles/Vol]7 mmol/LNormal5-15[facility] Ambulatory PPGComment on above:Performed By: #### CMP #### [facility] ([facility]) [address] [place] [address] VIRAST [Catalytic activity/Vol]22 U/LNormal<=41ProWexner Medical Center Ambulatory PPGComment on above:Performed By: #### CMP #### [facility] ([facility]) [address] [place] [address] VIRBilirubin [Mass/Vol]0.3 mg/dLNormal0.3-1.2POhioHealth Pickerington [facility] Ambulatory PPGComment on above:Performed By: #### CMP #### [facility] ([facility]) [address] [place] [address] VIRCalcium [Mass/Vol]9.3 mg/dLNormal8.5-10.5POhioHealth [facility]erington [facility] Ambulatory PPGComment on above:Performed By: #### CMP #### [facility] ([facility]) [address] [place] [address] VIRChloride [Moles/Vol]102 mmol/DTjfyob48-949LjoYedgyw Hospital Ambulatory PPGComment on above:Performed By: #### CMP #### [facility] ([facility]) [address] [place] [address] VIRCO2 [Moles/Vol]34 mmol/HGdui24-25KyhWwlvpk Hospital Ambulatory PPGComment on above:Performed By: #### CMP #### [facility] ([facility]) [address] [place] [address] VIRCreatinine [Mass/Vol]1.27 mg/dLHigh0.40-1.00[facility] Ambulatory PPGComment on above:Result Comment: METHOD TRACEABLE TO IDMS STANDARDPerformed By: #### CMP #### [facility] ([facility]) [address] [place] [address] VIRGFR/1.73 sq M.predicted among non-blacks MDRD (S/P/Bld) [Vol rate/Area]48 mL/min/{1.73_m2}Low>=60[facility] Ambulatory PPGComment on above:Result Comment: Reported eGFR is based on the CKD-EPI 2020 equation that does not use a race coefficient.Performed By: #### CMP #### [facility] ([facility]) [address] [place] [address] VIRGlucose [Mass/Vol]114 mg/zLXtpc12-24LeyLofvft Hospital Ambulatory PPGComment on above:Performed By: #### CMP #### [facility] ([facility]) [address] [place] [address] VIRPotassium [Moles/Vol]4.4 mmol/LNormal3.5-5.0[facility] Ambulatory PPGComment on above:Performed By: #### CMP #### [facility] ([facility]) [address] [place] [address] VIRProtein [Mass/Vol]7.6 g/dLNormal6.0-8.0[facility] Ambulatory PPGComment on above:Performed By: #### CMP #### [facility] ([facility]) [address] [place] [address] VIRSodium [Moles/Vol]143 mmol/BThibmd758-365KlcDaoqnk Hospital Ambulatory PPGComment on above:Performed By: #### CMP #### [facility] ([facility]) [address] [place] [address] VIRUrea nitrogen [Mass/Vol]19 mg/dLNormal5-27[facility] Ambulatory PPGComment on above:Performed By: #### CMP #### [facility] ([facility]) [address] [place] [address] VIRComprehensive metabolic panelon 34-74-1937Mgzmgze [Mass/Vol] 4.4 g/dL3.2 - 5.3 g/dLSamaritan North Health Center SystemALP [Catalytic activity/Vol]100 U/L 39 - 130 U/LProMedMemorial Health System [facility] SystemALT No additional P-5'-P [Catalytic activity/Vol]33 U/LHighNINF - 31 U/[facility] SystemAnion gap [Moles/Vol] 7 mmol/L5 - 15 mmol/[facility] SystemAST [Catalytic activity/Vol]22 U/L NINF - 41 U/[facility] SystemBilirubin [Mass/Vol]0.3 mg/dL0.3 - 1.2 mg/dL [facility] SystemCalcium [Mass/Vol]9.3 mg/dL8.5 - 10.5 mg/dLMercy Health Urbana HospitalChloride [Moles/Vol]102 mmol/L98 - 109 mmol/[facility] SystemCO2 [Moles/Vol]34 mmol/LHigh22 - 32 mmol/[facility] System Creatinine [Mass/Vol]1.27 mg/dLHigh0.40 - 1.00 mg/dLMercy Health Urbana Hospital Comment on above:METHOD TRACEABLE TO IDMS STANDARDEGFR Non-Race Xokvsetor05RuwHealthSouth Medical CenterComment on above:Reported eGFR is based on the CKD-EPI 2020 equation that does not use a race coefficient. Glucose [Mass/Vol]114 mg/aFGmyq94 - 99 mg/dLMercy Health Urbana Hospital Interpretation and review of laboratory resultsAbnoNorthern Regional Hospital Potassium [Moles/Vol]4.4 mmol/L3.5 - 5.0 mmol/[facility] SystemProtein [Mass/Vol]7.6 g/dL6.0 - 8.0 g/dLUNC Hospitals Hillsborough Campusodium [Moles/Vol]143 mmol/L134 - 146 mmol/[facility] SystemUrea nitrogen [Mass/Vol]19 mg/dL5 - 27 mg/dLBrooke Glen Behavioral HospitalHEMOGLOBIN A1Con 11-40-6750Kpsnsri [Mass/Vol]134 mg/dLStanford University Medical Center Ambulatory PPG Comment on above:Performed By: #### HA1C #### [facility] ([facility]) [address] [place] [address] DPCRqR6v (Bld) [Mass fraction]6.3 %High4.4-5.6[facility] Ambulatory PPGComment on above:Result Comment: ADA Guidelines Result HgbA1c Normal : less than 5.7 % Prediabetes : 5.7 % to 6.4 % Diabetes : > 6.4 % Use with caution in patients with abnormal hemoglobin variants as the half-life of red blood cells and in vivo glycation rates are affected.Performed By: #### HA1C #### [facility] ([facility]) [address] [place] [address] VIRCBC AND AUTO DIFFon 01-61-7673YFMEREHX BASOPHIL0.1 X10E9/L Normal0.0-0.2[facility] Va Medical CenterComment on above:Performed By: #### KAIDEN 2131-12, BMP, CBCA #### [facility] ([id number]) [address] [address] [place], [place] [address]DRRDPZLN NEUTROPHIL7.1 X10E9/LHigh1.5-6.6ProGalion Community HospitalComment on above:Performed By: #### KAIDEN 2131-12, BMP, CBCA #### [facility] ([id number]) [address] [address] [address] [place], [place] [address]Lwjwmgsza/100 WBC (Bld)0.6 %NormalElyria Memorial Hospital Comment on above:Performed By: #### KAIDEN 2131-12, BMP, CBCA #### [facility] ([id number]) [address] [place], [place] [address]Woysdjqkvwj (Bld) [#/Vol]0.1 10*3/uLNormal0.0-0.4ProGalion Community HospitalComment on above:Performed By: #### KAIDEN 2131-12, BMP, CBCA #### [facility] ([id number]) [address] [place], [place] [address]Zgsjiwoyhtb/100 WBC (Bld)1.0 %NormalElyria Memorial Hospital Comment on above:Performed By: #### KAIDEN, 2131-12, BMP, CBCA #### [facility] ([id number]) [address] [place], [place] [address]Lapnhfrafxe distribution width (RBC) [Ratio]20.7 %High11.5-15.0 [facility] Kendall HospitalComment on above:Performed By: #### KAIDEN, 2131-12, BMP, CBCA #### [facility] ([id number]) [address] [place], [place] [address]Smudefgbvs (Bld) [Volume fraction]37.2 %Snjcnl76-67JdlJnjwywGalion Community HospitalComment on above:Performed By: #### KAIDEN, 2131-12, BMP, CBCA #### [facility] ([id number]) [address] [place], [place] [address]Yjfcbdsbhj (Bld) [Mass/Vol]11.7 g/bZOeddaz85.7-15.5ProMedKettering Health Washington Township HospitalComment on above:Performed By: #### KAIDEN 2131-12, BMP, CBCA #### [facility] ([id number]) [address] [place], [place] [address]Whlqhxerbpf (Bld) [#/Vol]1.6 10*3/uLNormal1.0-3.5ProMedKettering Health Washington Township HospitalComment on above:Performed By: #### KAIDEN, 2131-12, BMP, CBCA #### [facility] ([id number]) [address] [place], [place] [address]Autcjdxivrq/100 WBC (Bld)17.6 %NormalElyria Memorial Hospital Comment on above:Performed By: #### THYDasha, 2131-12, BMP, CBCA #### [facility] ([id number]) [address] [place], [place] [address]UPE (RBC) [Entitic mass]23.0 inAep52-53PkkUoutbmElyria Memorial Hospital Comment on above:Performed By: #### THYDasha, 2131-12, BMP, CBCA #### [facility] ([id number]) [address] [place], [place] [address]QSCJ (RBC) [Mass/Vol]31.4 g/fTNbk07-36OfbHanmcjElyria Memorial Hospital Comment on above:Performed By: #### THYDasha, 2131-12, BMP, CBCA #### [facility] ([id number]) [address] [place], [place] [address]MYZ (RBC) [Entitic vol]73 tBWpb53-807UguAxxidgElyria Memorial Hospital Comment on above:Performed By: #### KAIDEN, 2131-12, BMP, CBCA #### [facility] ([id number]) [address] [place], [place] [address]Zlytttmyy (Bld) [#/Vol]0.4 10*3/uLNormal0-0.9Elyria Memorial HospitalComment on above:Performed By: #### THYDasha, 2131-12, BMP, CBCA #### [facility] ([id number]) [address] [place], [place] [address]Fmwnhagnt/100 WBC (Bld)4.2 %[facility] Comment on above:Performed By: #### THYR, 2131-12, BMP, CBCA #### [facility] ([id number]) [address] [place], [place] [address]Jauhzmhkngt/100 WBC (Bld)76.6 %[facility] Comment on above:Performed By: #### THYR, 2131-12, BMP, CBCA #### [facility] ([id number]) [address] [place], [place] [address]Llltikvm mean volume (Bld) [Entitic vol]8.2 fLNormal7-12 [facility] Kend[facility] HospitalComment on above:Performed By: #### KAIDEN 2131-12, BMP, CBCA #### [facility] ([id number]) [address] [place], [place] [address]Tgxgppjxc (Bld) [#/Vol]396 10*3/yKXrpslw193-622SynXrqrvq Kend[facility] HospitalComment on above:Performed By: #### KAIDEN 2131-12, BMP, CBCA #### [facility] ([id number]) [address] [place], [place] [address]PJL COUNT5.09 X10E12/LNormal3.80-5.20ProAultman Orrville Hospitalca [facility] Comment on above:Performed By: #### KAIDEN 2131-12, KEKE, CBCA #### [facility] ([id number]) [address] [place], [place] [address]VAZ (Bld) [#/Vol]9.3 10*3/uLNormal4.0-11.0ProAultman Orrville Hospitalca Kendall HospitalComment on above:Performed By: #### KAIDEN 2131-12, BMP, CBCA #### [facility] ([id number]) [address] [place], [place] [address]PXTOJSEAOTXMZ METABOLIC PANELon 40-62-3346Ayavwxr [Mass/Vol]4.1 g/dLNormal3.2-5.3ProMedica Kendall HospitalComment on above:Performed By: #### KAIDEN 2131-12, BMP, CBCA #### [facility] ([id number]) [address] [place], [place] [address]TRK [Catalytic activity/Vol]106 U/STjgssw30-922BvePhruaw Miller HospitalComment on above:Performed By: #### KAIDEN 2131-12, BMP, CBCA #### [facility] ([id number]) [address] [place], [place] [address]AKH [Catalytic activity/Vol]30 U/LNormal0-31[facility] HospitalComment on above:Performed By: #### KAIDEN 2131-12, BMP, CBCA #### [facility] ([id number]) [address] [place], [place] [address]Mbemj gap [Moles/Vol]10 mmol/LNormal5-15[facility] HospitalComment on above:Performed By: #### KAIDEN 2131-12, BMP, CBCA #### [facility] ([id number]) [address] [place], [place] [address]SGZ [Catalytic activity/Vol]30 U/LNormal0-41[facility] HospitalComment on above:Performed By: #### KAIDEN 2131-12, BMP, CBCA #### [facility] ([id number]) [address] [place], [place] [address]Rlpmlenrf [Mass/Vol]0.3 mg/dLNormal0.3-1.2Pro[facility] Miller HospitalComment on above:Performed By: #### KAIDEN 2131-12, BMP, CBCA #### [facility] ([id number]) [address] [place], [place] [address]Gzezdcm [Mass/Vol]9.6 mg/dLNormal8.5-10.5ProMedica Miller HospitalComment on above:Performed By: #### KAIDEN 2131-12, BMP, CBCA #### [facility] ([id number]) [address] [place], [place] [address]Qomgosmm [Moles/Vol]105 mmol/YRcivrq35-272FeqQmjkfr Miller HospitalComment on above:Performed By: #### KAIDEN 2131-12, BMP, CBCA #### [facility] ([id number]) [address] [place], [place] [address]ST8 [Moles/Vol]25 mmol/LKiacrf61-94AfoLadsouUC [facility] Comment on above:Performed By: #### KAIDEN 2131-12, ANNA DAVIES #### [facility] ([id number]) [address] [place], [place] [address]Ywwwofoahz [Mass/Vol]1.14 mg/dLHigh0.40-1.00ProGalion Community HospitalComment on above:Result Comment: METHOD TRACEABLE TO IDMS STANDARD Performed By: #### KAIDEN 2131-12, ANNA DAVIES #### [facility] ([id number]) [address] [place], [place] [address]PNB/1.73 sq M.predicted among non-blacks MDRD (S/P/Bld) [Vol rate/Area]54 mL/min/{1.73_m2}Low>59ProGalion Community HospitalComment on above: Result Comment: Reported eGFR is based on the CKD-EPI 2020 equation that does not use a race coefficient.Performed By: #### KAIDEN 2131-12, ANNA DAVIES #### [facility] ([id number]) [address] [place], [place] [address]Ktifhdu [Mass/Vol]144 mg/iNPnlo17-57YnmOflssrElyria Memorial Hospital Comment on above:Performed By: #### KAIDEN 2131-12, ANNA DAVIES #### [facility] ([id number]) [address] [place], [place] [address]Iupkydrmn [Moles/Vol]3.9 mmol/LNormal3.5-5.0ProGalion Community HospitalComment on above:Performed By: #### KAIDEN 2131-12, KEKE, CBCMindi #### [facility] ([id number]) [address] [place], [place] [address]Otkjltu [Mass/Vol]7.5 g/dLNormal6.0-8.0[facility] Comment on above:Performed By: #### KAIDEN 2131-12KEKE CBCMindi #### [facility] ([id number]) [address], [facility] [address] [place], [place] [address]Kntipb [Moles/Vol]140 mmol/BZnxyzj301-497UsbTbpiwe [facility]edo HospitalComment on above:Performed By: #### KAIDEN 2131-12, KEKE, CBCA #### [facility] ([id number]) [address], [facility] [address] [place], [place] [address]Hohv nitrogen [Mass/Vol]11 mg/dLNormal5-27ProGalion Community HospitalComment on above:Performed By: #### KAIDEN 2131-12, KEKE, CBCA #### [facility] ([id number]) [address], [facility] [address] [place], [place] [address]ZND A1C (GLYCO-HGB)on 36-72-3455Qheacyr [Mass/Vol]140 mg/dL NormalProGalion Community HospitalComment on above:Performed By: #### KAIDEN 2131-12, KEKE, CBCA #### [facility] ([id number]) [address], [facility] [address] [place], [place] [address]VaN9r (Bld) [Mass fraction]6.5 %High4.4-5.6ProGalion Community HospitalComment on above:Result Comment: NOTE ADA Guidelines Result HgbA1c Normal : less than 5.7 % Prediabetes : 5.7 % to 6.4 % Diabetes : > 6.4 % Use with caution in patients with abnormal hemoglobin variants as the half-life of red blood cells and in vivo glycation rates are affected.Performed By: #### KAIDEN 2131-12, KEKE, CBCA #### [facility] ([id number]) [address], [address] [place] [id number] 1996 panelon 80-53-2326Uqjjrshmfsl [Mass/Vol]188 mg/dL Gmrifh817-134XdqBvuywo [facility] HospitalComment on above:Performed By: ###Fabi RICHEY 2131-12, BMP, CBCA #### [facility] ([id number]) [address] [place], [place] [address]Ejbpbmcvmxq in HDL [Mass/Vol]33 mg/dLLow>39Pro[facility] HospitalComment on above:Result Comment: HDL <40 mg/dL - High Risk HDL > or = 40mg/dL- Desirable HDL >60 mg/dL - Negative Risk Performed By: ###Fabi RICHEY, 2131-12, BMP, CBCA #### [facility] ([id number]) [address] [place], [place] [address]Qmbicvltxvf in LDL [Mass/Vol]118 mg/dLNormal<130ProHarrison Community Hospital HospitalComment on above:Result Comment: LDL <100 mg/dL - Desirable LDL >160 mg/dL - High Risk Performed By: #### KAIDEN, 2131-12, BMP, CBCA #### [facility] ([id number]) [address] [place], [place] [address]Ltlckpypqem in VLDL [Mass/Vol]37 mg/dLHigh0-30ProHarrison Community Hospital HospitalComment on above:Performed By: ###Fabi RICHEY, 2131-12, BMP, CBCA #### [facility] ([id number]) [address] [place], [place] [address]HFPZSTTZMHI:HDL5.7High1.0-5.0ProAultman Orrville Hospitalca Kendall HospitalComment on above:Performed By: #### KAIDEN 2131-12, BMP, CBCA #### [facility] ([id number]) [address] [place], [place] [address]Grnpeefendog [Mass/Vol]185 mg/zNChio95-844VjhXnkfev [facility] HospitalComment on above:Performed By: #### KAIDEN, 2131-12, BMP, CBCA #### [facility] ([id number]) [address], [address] [place], [place] [address]MGREJLK B12on 13-24-9250Biancbnxe (Vitamin B12) [Mass/Vol]1244 pg/oZLhje380-122CnxFfpaio [place] HospitalComment on above:Performed By: #### KAIDEN 2131-12, BMP, CBCA #### [facility] ([id number]) [address], [address] [place], [place] [address]HCB AND AUTO DIFFon 29-42-4245TFZAKOMQ BASOPHIL0.1 X10E9/LNormal 0.0-0.2ProMedKettering Health [facility] HospitalComment on above:Performed By: #### XENIA, 257-8, HAMagaly, 2088-04, CBCA #### [facility] ([id number]) [address], [address] [place], [place] [address]WOYJMASM NEUTROPHIL8.1 X10E9/LHigh1.5-6.6ProAultman [facility] Hospitalca [facility] HospitalComment on above:Performed By: #### XENIA, 257-8, HA1C, 2088-04, CBCA #### [facility] ([id number]) [address], [address] [place], [place] [address]Gqsgxqotz/100 WBC (Bld)0.7 %NormalProHarrison Community Hospital Hospital Comment on above:Performed By: #### XENIA, 2571-8, HA1C, 2088-04, CBCA #### [facility] ([id number]) [address], [address] [place], [place] [address]Uphqgrgqwwo (Bld) [#/Vol]0.2 10*3/uLNormal0.0-0.4[facility] HospitalComment on above:Performed By: #### XENIA, 2570-11, , 2088-04, CBCA #### [facility] ([id number]) [address], [address] [place], [place] [address]Dcvotmiaosp/100 WBC (Bld)1.4 %NormalProAultman Orrville Hospitalca [facility] Comment on above:Performed By: #### XENIA, 2570-11, , 2088-04, CBCA #### [facility] ([id number]) [address], [address] [place], [place] [address]Utndznmawal distribution width (RBC) [Ratio]19.2 %High11.5-15.0 [facility] HospitalComment on above:Performed By: #### XENIA, 2570-11, , 2088-04, CBCA #### [facility] ([id number]) [address], [address] [place], [place] [address]Jrtlaukmxw (Bld) [Volume fraction]31.0 %Oby36-06FjbUhkwps Kendall HospitalComment on above:Performed By: #### XENIA, 2570-11, , 2088-04, CBCA #### [facility] ([id number]) [address], [address] [place], [place] [address]Zacrmfxbgi (Bld) [Mass/Vol]9.2 g/dLLow11.7-15.5ProMedica Kendall HospitalComment on above:Performed By: #### XENIA, 2570-11, , 2088-04, CBCA #### [facility] ([id number]) [address], [address] [place], [place] [address]Pxfpmrcmdiu (Bld) [#/Vol]2.2 10*3/uLNormal1.0-3.5PUC [facility] HospitalComment on above:Performed By: #### XENIA, 8, HA1C, 2088-04, CBCA #### [facility] ([id number]) [address], [facility] [address] [place], [place] [address]Giejfkkuxal/100 WBC (Bld)19.8 %NormalElyria Memorial Hospital Comment on above:Performed By: #### XENIA, 8, HAMagaly, 2088-04, CBCA #### [facility] ([id number]) [address], [address] [place] [address]ZWV (RBC) [Entitic mass]21.8 kqFqy86-42AjdNmmbgtElyria Memorial Hospital Comment on above:Performed By: #### XENIA, 8, HA1C, 2088-04, CBCA #### [facility] ([id number]) [address], [address] [address]GHFE (RBC) [Mass/Vol]29.8 g/dMLeo81-56DeqJdlpjoElyria Memorial Hospital Comment on above:Performed By: #### XENIA, 8, HA1C, 2088-04, CBCA #### [facility] ([id number]) [address] [address]AKG (RBC) [Entitic vol]73 iKQbd45-485ThiNeuyvoElyria Memorial Hospital Comment on above:Performed By: #### XENIA, 8, HA1C, 2088-04, CBCA #### [facility] ([id number]) [address], [address] [address]Gavfhilfr (Bld) [#/Vol]0.4 10*3/uLNormal0-0.9E[facility] Memorial HospitalComment on above:Performed By: #### XENIA, 257-8, HA1C, 2088-04, CBCA #### [facility] ([id number]) [address], [address] [place], [place] [address]Cqkyuvcvw/100 WBC (Bld)4.0 %NormalElyria Memorial Hospital Comment on above:Performed By: #### CMP, 2570-8, HA1C, 2088-04, CBCA #### [facility] ([id number]) [address], [address] [place], [place] [address]Qqjcdhgikxb/100 WBC (Bld)74.1 %[facility] Comment on above:Performed By: #### CMP, 2570-8, HA, 2088-04, CBCA #### [facility] ([id number]) [address], [address] [place], [place] [address]Qjmafnls mean volume (Bld) [Entitic vol]8.0 fLNormal7-12 [facility] HospitalComment on above:Performed By: #### CMP, 8, HA1C, 2088-04, CBCA #### [facility] ([id number]) [address], [address] [place], [place] [address]Oscpjguux (Bld) [#/Vol]412 10*3/nWPtdmpe749-570MfgCbfzhi [place] HospitalComment on above:Performed By: #### CMP, 2570-8, HA, 2088-04, CBCA #### [facility] ([id number]) [address], [address] [place], [place] [address]LQA COUNT4.24 X10E12/LNormal3.80-5.20[facility] Comment on above:Performed By: #### CMP, 2570-8, HA1C, 2088-04, CBCA #### [facility] ([id number]) [address], [address] [place], [place] [address]MXJ (Bld) [#/Vol]11.0 10*3/uLNormal4.0-11.0E[facility] Memorial HospitalComment on above:Performed By: #### CMP, 2571-8, HA1C, 2089-1, CBCA #### [facility] ([id number]) [address] [facility], [address] [place], [place] [address]BGA auto differentialon 39-87-3036Niwssvzwv (Bld) [#/Vol]0.1 10*3/uLSamaritan North Health Center SystemBasophils/100 WBC (Bld)0.7 %[facility] HospitalEosinophils (Bld) [#/Vol]0.2 10*3/uLMercy Health Urbana HospitalEosinophils/100 WBC (Bld)1.4 %[facility] HospitalErythrocyte distribution width (RBC) [Ratio]19.2 %High11.5 - 15.0 %[facility] HospitalHematocrit (Bld) [Volume fraction]31 %Low35 - 47 %[facility] HospitalHemoglobin (Bld) [Mass/Vol]9.2 g/dLLow11.7 - 15.5 g/dLMercy Health Urbana HospitalInterpretation and review of laboratory resultsAbnormalMercy Health Urbana HospitalLymphocytes (Bld) [#/Vol]2.2 10*3/uLMercy Health Urbana HospitalLymphocytes/100 WBC (Bld)19.8 %[facility] HospitalMCH (RBC) [Entitic mass]21.8 pgLow27 - 34 pgPGerman HospitalMCHC (RBC) [Mass/Vol]29.8 g/dLLow32 - 36 g/dLMercy Health Urbana HospitalMCV (RBC) [Entitic vol]73 fLLow80 - 100 [facility] SpringsMonocytes (Bld) [#/Vol] 0.4 10*3/uLMercy Health Urbana HospitalMonocytes/100 WBC (Bld)4 %[facility] HospitalNeutrophils (Bld) [#/Vol]8.1 10*3/uLSt. Joseph Medical Center System Neutrophils/100 WBC (Bld)74.1 %[facility] SystemPlatelet mean volume (Bld) [Entitic vol]8 fL7 - 12 fLPMadison Health SystemPlatelets (Bld) [#/Vol]412 10*3/uLSamaritan North Health Center SystemRBC (Bld) [#/Vol]4.24 10*6/[facility] SystemWBC corrected for nucl RBC Auto (Bld) [#/Vol]11[facility] ProMKettering Health MiamisburgCOMPREHENSIVE METABOLIC PANELon 48-34-0641Mdpkafu [Mass/Vol]4.0 g/dLNormal3.2-5.3PNationwide Children's Hospital HospitalComment on above: Performed By: #### KAIDEN, 2131-12, BMP, CBCA #### [facility] ([id number]) [address], [address] [place], [place] [id number] [Catalytic activity/Vol]94 U/LMeguwc57-471RkpGkxlkx [place] HospitalComment on above:Performed By: #### KAIDEN, 2131-12, BMP, CBCA #### [facility] ([id number]) [address], [address] [place], [place] [address]KYG [Catalytic activity/Vol]13 U/LNormal0-31PNationwide Children's Hospital HospitalComment on above:Performed By: #### THYR, 2131-12, BMP, CBCA #### [facility] ([id number]) [address], [address] [place], [place] [address]Fdmtw gap [Moles/Vol]6 mmol/LNormal5-15ProHarrison Community Hospital Hospital Comment on above:Performed By: #### THYR, 2131-12, BMP, CBCA #### [facility] ([id number]) [address], [address] [place], [place] [address]RJO [Catalytic activity/Vol]12 U/LNormal0-41ProHarrison Community Hospital HospitalComment on above:Performed By: #### THYR, 2131-12, BMP, CBCA #### [facility] ([id number]) [address], [address] [place], [place] [address]Kvzclxuma [Mass/Vol]0.3 mg/dLNormal0.3-1.2PNationwide Children's Hospital HospitalComment on above:Performed By: #### KAIDEN 2131-12, BMP, CBCA #### [facility] ([id number]) [address], [address] [place], [place] [address]Dpyaqsx [Mass/Vol]9.0 mg/dLNormal8.5-10.5PNationwide Children's Hospital HospitalComment on above:Performed By: #### KAIDEN 2131-12, KEKE, CBCA #### [facility] ([id number]) [address], [address] [place], [place] [address]Gaurmkoc [Moles/Vol]100 mmol/TJmjtrp42-977HxpQndzfd [place] HospitalComment on above:Performed By: #### KAIDEN 2131-12, KEKE, CBCA #### [facility] ([id number]) [address], [address] [place], [place] [address]QT9 [Moles/Vol]32 mmol/DTpgryc46-31QehDvjxkq [facility] Comment on above:Performed By: #### KAIDEN 2131-12, KEKE, CBCA #### [facility] ([id number]) [address], [address] [place], [place] [address]Xvvhppmtqz [Mass/Vol]1.26 mg/dLHigh0.40-1.00ProHarrison Community Hospital HospitalComment on above:Result Comment: METHOD TRACEABLE TO IDMS STANDARD Performed By: #### KAIDEN 2131-12, KEKE, CBCA #### [facility] ([id number]) [address], [address] [place], [place] [address]GMX/1.73 sq M.predicted among non-blacks MDRD (S/P/Bld) [Vol rate/Area]49 mL/min/{1.73_m2}Low>59ProAultman Orrville Hospitalca Miller HospitalComment on above: Result Comment: Reported eGFR is based on the CKD-EPI 2020 equation that does not use a race coefficient.Performed By: #### KAIDEN 2131-12KEKE CBCMindi #### [facility] ([id number]) [address], [address] [place], [place] [address]Xtvjbfm [Mass/Vol]120 mg/sIDvio98-07HtmIrijghGalion Community Hospital Comment on above:Performed By: #### KAIDEN 2131-12, KEKE, CBCA #### [facility] ([id number]) [address], [address] [place], [place] [address]Kimvylzgf [Moles/Vol]3.6 mmol/LNormal3.5-5.0ProGalion Community HospitalComment on above:Performed By: #### KAIDEN 2131-12, KEKE, CBCA #### [facility] ([id number]) [address], [address] [place], [place] [address]Irbbisf [Mass/Vol]7.3 g/dLNormal6.0-8.0[facility] Comment on above:Performed By: #### KAIDEN 2131-12, KEKE, CBCA #### [facility] ([id number]) [address], [address] [place], [place] [address]Splcxt [Moles/Vol]138 mmol/LOwumxk682-547HinQvhvpe [place] HospitalComment on above:Performed By: #### KAIDEN 2131-12, BMP, CBCA #### [facility] ([id number]) [address], [address] [place], [place] [address]Tkme nitrogen [Mass/Vol]21 mg/dLNormal5-27ProGalion Community HospitalComment on above:Performed By: #### KAIDEN 2131-12, BMP, CBCA #### [facility] ([id number]) [address], [address] [place], [place] [address]Jymmreqqcwnqi metabolic panelon 64-05-2121Nyfbkng [Mass/Vol]4 g/dL3.2 - 5.3 g/dLSamaritan North Health Center SystemALP [Catalytic activity/Vol]94 U/L39 - 130 U/[facility] SystemALT No additional P-5'-P [Catalytic activity/Vol] 13 U/L0 - 31 U/[facility] SystemAnion gap [Moles/Vol]6 mmol/L5 - 15 mmol/[facility] SystemAST [Catalytic activity/Vol]12 U/L0 - 41 U/L [facility] HospitalBilirubin [Mass/Vol]0.3 mg/dL0.3 - 1.2 mg/dLMercy Health Urbana HospitalCalcium [Mass/Vol]9 mg/dL8.5 - 10.5 mg/dLMercy Health Urbana Hospital Chloride [Moles/Vol]100 mmol/L98 - 109 mmol/[facility] SystemCO2 [Moles/Vol]32 mmol/L22 - 32 mmol/[facility] for RehabilitationCreatinine [Mass/Vol] 1.26 mg/dLHigh0.40 - 1.00 mg/dLMercy Health Urbana HospitalComment on above:METHOD TRACEABLE TO [facility] STANDARDeGFR (CKD-EPI)non-race vbxxcqket64Kz[address] [place], [place] [address]Comment on above: Reported eGFR is based on the CKD-EPI 2020 equation that does not use a race coefficient. Glucose [Mass/Vol]120 mg/pVGfsj97 - 99 mg/dLMercy Health Urbana Hospital Interpretation and review of laboratory resultsAbnormalMercy Health Urbana Hospital Potassium [Moles/Vol]3.6 mmol/L3.5 - 5.0 mmol/[facility] SystemProtein [Mass/Vol]7.3 g/dL6.0 - 8.0 g/dLUNC Hospitals Hillsborough Campusodium [Moles/Vol]138 mmol/L134 - 146 mmol/[facility] for RehabilitationUrea nitrogen [Mass/Vol]21 mg/dL5 - 27 mg/dLBrooke Glen Behavioral HospitalDIRECT LDLon 03-07-2024 Cholesterol in LDL [Mass/Vol]161 mg/dLHigh<130E[facility] HospitalComment on above:Result Comment: LDL <100 mg/dL - Desirable LDL 130-159 mg/dL - Borderline High Risk LDL >160 mg/dL - High Risk Performed By: #### KAIDEN, 2131-12, ANNA DAVIES #### [facility] ([id number]) [address], [address] [place], [place] [address]UNM A1C (GLYCO-HGB)on 45-85-1599Cemoigm [Mass/Vol]123 mg/dL NormalProGalion Community HospitalComment on above:Performed By: #### KAIDEN 2131-12, ANNA DAVIES #### [facility] ([id number]) [address] [facility], [address] [place], [place] [address]LmO1h (Bld) [Mass fraction]5.9 %High4.4-5.6E[facility] HospitalComment on above:Result Comment: NOTE ADA Guidelines Result HgbA1c Normal : less than 5.7 % Prediabetes : 5.7 % to 6.4 % Diabetes : > 6.4 % Use with caution in patients with abnormal hemoglobin variants as the half-life of red blood cells and in vivo glycation rates are affected.Performed By: #### KAIDEN, 2131-12, KEKE, ANNA #### [facility] ([id number]) [address], [address] [place], [place] [address]Wffoqkvhwc A1con 93-34-6381Rwpkvum glucose Estimated from glycated hemoglobin (Bld) [Mass/Vol]123 mg/dLMercy Health Urbana HospitalHbA1c (Bld) [Mass fraction]5.9 %High4.4 - 5.6 %[facility] SystemComment on above:NOTE ADA Guidelines Result HgbA1c Normal : less than 5.7 % Prediabetes : 5.7 % to 6.4 % Diabetes : > 6.4 % Use with caution in patients with abnormal hemoglobin variants as the half-life of red blood cells and in vivo glycation rates are affected. Interpretation and review of laboratory resultsAbnoMayo Clinic Health System– Red CedarMICROALBUMIN - ALBUMIN:CREATININE URINE RATIOon 23-11-6633MVN/CREAT RATIONOT CALCULATEDNormal0.0-30.0[facility] Comment on above:Result Comment: Result for Albumin/Creatinine Ratio cannot be reliably calculated because urine albumin and or urine creatinine is below the detection limit of the assay.Performed By: #### KAIDEN, 2131-12, BMP, CBCA #### [facility] ([id number]) [address], [address] [address]Ebagjzl DL <= 20 mg/L (U) [Mass/Vol]mg/dLNormal0.0-1.9[facility] HospitalComment on above:Performed By: #### THYDasha, 2131-12, BMP, CBCA #### [facility] ([id number]) [address], [address] [place], [place] [address]RCTTQ CREAT46.22 mg/dLNoSamaritan HospitalComment on above:Performed By: #### THYDasha, 2131-12, BMP, CBCA #### [facility] ([id number]) [address], [address] [address]Qglxamdyhxsp - Albumin: Creatinine Urine Ratioon 03-07-2024 Albumin DL <= 20 mg/L (U) [Mass/Vol]mg/dL0.0 - 1.9 mg/dLMercy Health Urbana Hospital Albumin/Creatinine DL <= 1.0 mg/L (U) [Ratio]NOT CALCULATEDMercy Health Urbana HospitalComment on above: Result for Albumin/Creatinine Ratio cannot be reliably calculated because urine albumin and or urine creatinine is below the detection limit of the assay. Creatinine (U) [Mass/Vol]46.22 mg/dLBrooke Glen Behavioral HospitalTRIGLYCERIDEon 56-93-9759Gxrgvpswqlhm [Mass/Vol]113 mg/vOOkqbtk55-609 [facility] HospitalComment on above:Performed By: #### THYR, 2131-12, ANNA DAVIES #### [facility] ([id number]) [address], [address] [place], [place] [address]Mt Panel Informationon 72-44-6876ZonjtEusebia Huertas DO 01/26/2024 3:45 PM L Inj/Asp: L subacromial bursa on 01/26/2024 1:50 PM Indications: pain Details: 21 G needle, posterior approach Medications: 40 mg methylPREDNISolone acetate 40 MG/ML Outcome: tolerated well, no immediate complications Procedure, treatment alternatives, risks and benefits explained, specific risks discussed. Consent was given by the patient. [facility] HospitalXR Shoulder - left 2 Viewson [id number] Result: January 26, 2024 x-rays AP axillary and Y scapula of the left shoulder demonstrate a type 2 acromion. The glenohumeral joint and acromioclavicular joints are intact. There are no fractures identified. The humeral head is centered in the glenoid. Impression: Type 2 acromion Cipriano Huertas D.O.[facility] HospitalRadiology Study observation (narrative)[facility] WestBASI METABOLIC PANLon 86-87-9427Iraqi gap [Moles/Vol] 9 mmol/LNormal5-15[facility] HospitalComment on above:Performed By: #### BMP #### [facility] ([id number]) [address], [address] [place], [place] [address]Ofbqwek [Mass/Vol]9.1 mg/dLNormal8.5-10.5Pro[facility] Kendall HospitalComment on above:Performed By: #### BMP #### [facility] ([id number]) [address], [address] [place], [place] [address]Wgremkvq [Moles/Vol]101 mmol/DQvhlnq88-978GdoYpdhzp [facility] HospitalComment on above:Performed By: #### BMP #### [facility] ([id number]) [address], [address] [place], [place] [address]KA5 [Moles/Vol]31 mmol/VAsjrlt03-71PfuGelioi [facility] Comment on above:Performed By: #### BMP #### [facility] ([id number]) [address], [address] [place], [place] [address]Sciqrgabco [Mass/Vol]1.36 mg/dLHigh0.40-1.00ProGalion Community HospitalComment on above:Result Comment: METHOD TRACEABLE TO IDMS STANDARD Performed By: #### BMP #### [facility] ([id number]) [address], [address] [place], [place] [address]SJI/1.73 sq M.predicted among non-blacks MDRD (S/P/Bld) [Vol rate/Area]44 mL/min/{1.73_m2}Low>59ProGalion Community HospitalComment on above: Result Comment: Reported eGFR is based on the CKD-EPI 1 equation that does not use a race coefficient.Performed By: #### BMP #### [facility] ([id number]) [address], [address] [place], [place] [address]Yaqgmqk [Mass/Vol]134 mg/pPNwbn54-90IgyDspsgdGalion Community Hospital Comment on above:Performed By: #### BMP #### [facility] ([id number]) [address], [address] [place], [place] [address]Crxzhkete [Moles/Vol]4.1 mmol/LNormal3.5-5.0ProGalion Community HospitalComment on above:Performed By: #### BMP #### [facility] ([id number]) [address], [address] [place], [place] [address]Csdjym [Moles/Vol]141 mmol/MYbomlz754-401VbkWjiewo [place] HospitalComment on above:Performed By: #### BMP #### [facility] ([id number]) [address] [facility], [address] [place], [place] [address]Bcgh nitrogen [Mass/Vol]19 mg/dLNormal5-27ProGalion Community HospitalComment on above:Performed By: #### BMP #### [facility] ([id number]) [address] [facility] [place], [place] [address]Zbnvt Metabolic Panelon 84-15-6824Mnhdm gap [Moles/Vol]9 mmol/L5 - 15 mmol/[facility] Health SystemCalcium [Mass/Vol]9.1 mg/dL8.5 - 10.5 mg/dL ProMKettering Health MiamisburgChloride [Moles/Vol]101 mmol/L98 - 109 mmol/[facility] Health SystemCO2 [Moles/Vol]31 mmol/L22 - 32 mmol/[facility] System Creatinine [Mass/Vol]1.36 mg/dLHigh0.40 - 1.00 mg/dLMercy Health Urbana Hospital Comment on above:METHOD TRACEABLE TO [facility] STANDARDeGFR (CKD-EPI)non-race zutcxgpue28SspHealthSouth Medical CenterComment on above: Reported eGFR is based on the CKD-EPI 2020 equation that does not use a race coefficient. Glucose [Mass/Vol]134 mg/sYDwna64 - 99 mg/dLMercy Health Urbana Hospital Interpretation and review of laboratory resultsAbnoNorthern Regional Hospital Potassium [Moles/Vol]4.1 mmol/L3.5 - 5.0 mmol/LProMedica Health SystemSodium [Moles/Vol]141 mmol/L134 - 146 mmol/[facility] SystemUrea nitrogen [Mass/Vol]19 mg/dL5 - 27 mg/dLBrooke Glen Behavioral HospitalNo Panel Informationon [id number] Huertas DO 12/29/2023 3:11 PM Trigger Point Injection (CPT [address] [place] [address]): left gluteus tej on 12/29/2023 2:58 PM Indications: pain Details: 21 G needle Medications: 40 mg methylPREDNISolone acetate 40 MG/ML Outcome: tolerated well, no immediate complications Procedure, treatment alternatives, risks and benefits explained, specific risks discussed. [facility] Spine Single viewon 62-89-2069Xbojexz Result: Lateral lumbar and thoracic spine x-rays demonstrate to wedge deformities in the thoracic region both of them with a proximally 50 percent collapse. Estimated levels are T6 and T8. Impression: Stable appearance of compression fractures at T6 and T8 no new fractures Cipriano Huertas D.O.[facility] HospitalRadiology Study observation (narrative)[facility] WestBASIC METABOLIC PANLon 88-70-4976Hpriu gap [Moles/Vol] 7 mmol/LNormal5-15[facility] Miller HospitalComment on above:Performed By: #### KEKE, , 2131-12, CBCA #### [facility] ([id number]) [address], [address] [place], [place] [address]Ftfutyg [Mass/Vol]9.0 mg/dLNormal8.5-10.5Pro[facility]ica Kendall HospitalComment on above:Performed By: #### KEKE, , 2131-12, CBCA #### [facility] ([id number]) [address], [address] [place], [place] [address]Jvtuvbwv [Moles/Vol]105 mmol/MRhhwja12-673MomBtvklo [place] HospitalComment on above:Performed By: #### KEKE, , 2131-12, CBCA #### [facility] ([id number]) [address], [address] [place], [place] [address]MR3 [Moles/Vol]28 mmol/IBkwent06-25HjgVopbsm [facility] Comment on above:Performed By: #### KEKE, , 2131-12, CBCA #### [facility] ([id number]) [address], [address] [place], [place] [address]Owqpqtgdkh [Mass/Vol]1.23 mg/dLHigh0.40-1.00ProHarrison Community Hospital HospitalComment on above:Result Comment: METHOD TRACEABLE TO IDMS STANDARD Performed By: #### KEKE, , 2131-12, CBCA #### [facility] ([id number]) [address], [address] [place], [place] [address]LDB/1.73 sq M.predicted among non-blacks MDRD (S/P/Bld) [Vol rate/Area]50 mL/min/{1.73_m2}Low>59Pro[facility] Kendall HospitalComment on above: Result Comment: Reported eGFR is based on the CKD-EPI 2020 equation that does not use a race coefficient.Performed By: #### KEKE, , 2131-12, CBCA #### [facility] ([id number]) [address], [address] [place], [place] [address]Qbzxotl [Mass/Vol]88 mg/eBOtawbe71-29VkgRcffvy [facility] Comment on above:Performed By: #### KEKE, , 2131-12, CBCA #### [facility] ([id number]) [address], [address] [place], [place] [address]Jkltkkidg [Moles/Vol]3.9 mmol/LNormal3.5-5.0ProAultman Orrville Hospitalca Kendall HospitalComment on above:Performed By: #### KEKE, , 2131-12, CBCA #### [facility] ([id number]) [address] [address] [place], [place] [address]Zglqof [Moles/Vol]140 mmol/XXqsalr609-122XfpUvykpj [place] HospitalComment on above:Performed By: #### KEKE, , 2131-12, CBCA #### [facility] ([id number]) [address], [address] [place], [place] [address]Xjrq nitrogen [Mass/Vol]17 mg/dLNormal5-27ProHarrison Community Hospital HospitalComment on above:Performed By: #### KEKE, , 2131-12, CBCA #### [facility] ([id number]) [address], [address] [place], [place] [address]EEP AND AUTO DIFFon 75-23-3993YGRIIECX BASOPHIL0.1 X10E9/LNormal 0.0-0.2Pro[facility] Kendall HospitalComment on above:Performed By: #### KEKE, , 2131-12, CBCA #### [facility] ([id number]) [address], [address] [place], [place] [address]XKCIZFCB NEUTROPHIL5.8 X10E9/LNormal1.5-6.6Pro[facility]ica Kendall HospitalComment on above:Performed By: #### KEKE, , 2131-12, CBCA #### [facility] ([id number]) [address], [address] [place], [place] [address]Lprssxxkw/100 WBC (Bld)0.6 %NormalEly[facility] Hospital Comment on above:Performed By: #### KEKE, , 2131-12, CBCA #### [facility] ([id number]) [address], [address] [place], [place] [address]Jaarhrsyzat (Bld) [#/Vol]0.2 10*3/uLNormal0.0-0.4ProH[facility] Hospital HospitalComment on above:Performed By: #### KEKE, , 2131-12, CBCA #### [facility] ([id number]) [address], [address] [place], [place] [address]Cblblyoqkzc/100 WBC (Bld)1.9 %NormalElyria Memorial Hospital Comment on above:Performed By: #### KEKE, , 2131-12, CBCA #### [facility] ([id number]) [address], [address] [place], [place] [address]Fuskiuoanok distribution width (RBC) [Ratio]17.0 %High11.5-15.0 [facility] HospitalComment on above:Performed By: #### KEKE, , , CBCA #### [facility] ([id number]) [address], [address] [place], [place] [address]Pzrqpfmkfn (Bld) [Volume fraction]33.9 %Vsh26-37SuuUvnzmt [place] HospitalComment on above:Performed By: #### KEKE, , 2131-12, CBCA #### [facility] ([id number]) [address], [address] [place], [place] [address]Vxtxyvaaes (Bld) [Mass/Vol]10.6 g/dLLow11.7-15.5ProMedKettering Health Washington Township HospitalComment on above:Performed By: #### KEKE, , 2131-12, CBCA #### [facility] ([id number]) [address], [address] [place], [place] [address]Etepiwjcbjt (Bld) [#/Vol]2.3 10*3/uLNormal1.0-3.5PNationwide Children's Hospital HospitalComment on above:Performed By: #### KEKE, , 2131-12, CBCA #### [facility] ([id number]) [address], [address] [place], [place] [address]Xgtrxqmwleb/100 WBC (Bld)25.6 %NormalElyria [facility] Hospital Comment on above:Performed By: #### KEKE, , 2131-12, CBCA #### [facility] [facility] ([id number]) [address], [address] [place], [place] [address]WPC (RBC) [Entitic mass]26.1 tqUef84-47JltWfxtbjElyria Memorial Hospital Comment on above:Performed By: #### KEKE, , 2131-12, CBCA #### [facility] ([id number]) [address], [address] [place], [place] [address]AXUF (RBC) [Mass/Vol]31.2 g/zKJmk97-85UlnQyvyphElyria Memorial Hospital Comment on above:Performed By: #### KEKE, , 2131-12, CBCA #### [facility] ([id number]) [address], [address] [place], [place] [address]KKO (RBC) [Entitic vol]84 gODjoeui59-124JasVaxwbb [place] HospitalComment on above:Performed By: #### KEKE, , 2131-12, CBCA #### [facility] ([id number]) [address], [address] [place], [place] [address]Gclqyekvz (Bld) [#/Vol]0.6 10*3/uLNormal0-0.9ProGalion Community HospitalComment on above:Performed By: #### KEKE, , 2131-12, CBCA #### [facility] ([id number]) [address], [address] [place], [place] [address]Bmiruzbwo/100 WBC (Bld)6.8 %[facility] Comment on above:Performed By: #### KEKE, , 2131-12, CBCA #### [facility] ([id number]) [address], [address] [place], [place] [address]Smwkwgxbblt/100 WBC (Bld)65.1 %[facility] Comment on above:Performed By: #### KEKE, , 2131-12, CBCA #### [facility] ([id number]) [address], [address] [place], [place] [address]Powyppcv mean volume (Bld) [Entitic vol]8.1 fLNormal7-12 ProMjohn paul jones hospitala Kendall HospitalComment on above:Performed By: #### KEKE, , , CBCA #### [facility] ([id number]) [address], [address] [place], [place] [address]Grxhrdayh (Bld) [#/Vol]287 10*3/vJLxsbyv356-982SgsMlbnnj [facility] HospitalComment on above:Performed By: #### KEKE, , 2131-12, CBCA #### [facility] ([id number]) [address], [address] [place], [place] [address]GMT COUNT4.05 X10E12/LNormal3.80-5.20ProAultman Orrville Hospitalca [facility] Comment on above:Performed By: #### KEKE, , 2131-12, CBCA #### [facility] ([id number]) [address], [address] [place], [place] [address]ZKU (Bld) [#/Vol]9.0 10*3/uLNormal4.0-11.0ProMedica Kendall HospitalComment on above:Performed By: #### KEKE, , 2131-12, CBCA #### [facility] ([id number]) [address], [address] [place], [place] [address]SPGDRVYFJot 08-60-7108Xcefkvhqk [Mass/Vol]2.2 mg/dLNormal1.8-2.6 [facility] Kendall HospitalComment on above:Performed By: #### KEKE, , , CBCA #### [facility] ([id number]) [address], [address] [place], [place] [address]BEEINAS B12on 66-93-1548Flduotmnb (Vitamin B12) [Mass/Vol]370 pg/nUByljyg700-929FkxQszewu [facility] HospitalComment on above:Performed By: #### KEKE, , 2131-12, CBCA #### [facility] ([id number]) [address], [address] [place], [place] [address]QHNIS METABOLIC PANLon 16-69-0453Jfvnu gap [Moles/Vol]14 mmol/L Normal5-15ProHarrison Community Hospital HospitalComment on above:Performed By: #### KAIDEN 2131-12, KEKE, CBCA #### [facility] ([id number]) [address], [address] [place], [place] [address]Jfvplpx [Mass/Vol]9.4 mg/dLNormal8.5-10.5PUC [facility] Chester HospitalComment on above:Performed By: #### KAIDEN 2131-12, BMP, CBCA #### [facility] ([id number]) [address], [facility] [address] [place], [place] [address]Xehweqdk [Moles/Vol]104 mmol/FUmmcll49-109LfiGfylrx [place] HospitalComment on above:Performed By: #### KAIDEN 2131-12, KEKE, CBCA #### [facility] ([id number]) [address], [address] [place], [place] [address]WF1 [Moles/Vol]27 mmol/UJeswnm31-76BrdZuitfn [facility] Comment on above:Performed By: #### KAIDEN 2131-12, KEKE, CBCA #### [facility] ([id number]) [address], [address] [place], [place] [address]Envuqpisso [Mass/Vol]1.85 mg/dLHigh0.40-1.00ProGalion Community HospitalComment on above:Result Comment: METHOD TRACEABLE TO IDMS STANDARD Performed By: #### KAIDEN 2131-12, BMP, CBCA #### [facility] ([id number]) [address] [address] [place], [place] [address]TNQ/1.73 sq M.predicted among non-blacks MDRD (S/P/Bld) [Vol rate/Area]31 mL/min/{1.73_m2}Low>59ProGalion Community HospitalComment on above: Result Comment: Reported eGFR is based on the CKD-EPI 2020 equation that does not use a race coefficient.Performed By: #### KAIDEN 2131-12, BMP, CBCA #### [facility] ([id number]) [address], [address] [place], [place] [address]Vabekbn [Mass/Vol]128 mg/eMHpvc35-80ZiwTbflazGalion Community Hospital Comment on above:Performed By: #### KAIDEN 2131-12, BMP, CBCA #### [facility] ([id number]) [address], [address] [place] [address]Nrayfpiyu [Moles/Vol]3.9 mmol/LNormal3.5-5.0ProGalion Community HospitalComment on above:Performed By: #### KAIDEN 2131-12, BMP, CBCA #### [facility] ([id number]) [address], [address] [place] [address] [address]Cosomf [Moles/Vol]145 mmol/RWengnj968-143PhyXqerfc [place] HospitalComment on above:Performed By: #### KAIDEN 2131-12, BMP, CBCA #### [facility] ([id number]) [address], [address] [place] [address] [address]Cmpg nitrogen [Mass/Vol]36 mg/dLHigh5-27ProGalion Community HospitalComment on above:Performed By: #### KAIDEN 2131-12, BMP, CBCA #### [facility] ([id number]) [address], [address] [place] [address]Kkjyv Metabolic Panelon 68-16-4457Iqzoq gap [Moles/Vol]14 mmol/L 5 - 15 mmol/LProMedica Health SystemCalcium [Mass/Vol]9.4 mg/dL8.5 - 10.5 mg/dL [facility] Health SystemChloride [Moles/Vol]104 mmol/L98 - 109 mmol/LProMedica Health SystemCO2 [Moles/Vol]27 mmol/L22 - 32 mmol/LProMedica Health System Creatinine [Mass/Vol]1.85 mg/dLHigh0.40 - 1.00 mg/dLMercy Health Urbana Hospital Comment on above:METHOD TRACEABLE TO IDAL STANDARDeGFR (CKD-EPI)non-race ogesqeivp60Vcb- PINNortheast Regional Medical CenterComment on above: Reported eGFR is based on the CKD-EPI 2020 equation that does not use a race coefficient. Glucose [Mass/Vol]128 mg/qQYfgz01 - 99 mg/dLMercy Health Urbana Hospital Interpretation and review of laboratory resultsAbnormalMercy Health Urbana Hospital Potassium [Moles/Vol]3.9 mmol/L3.5 - 5.0 mmol/LPrHolzer Health System SystemSodium [Moles/Vol]145 mmol/L134 - 146 mmol/[facility] for RehabilitationUrea nitrogen [Mass/Vol]36 mg/dLHigh5 - 27 mg/dLBrooke Glen Behavioral Hospital CBC AND AUTO DIFFon 13-33-7575XQGSBUZO BASOPHIL0.0 X10E9/LNormal0.0-0.2PUC [facility] Chester HospitalComment on above:Performed By: #### KAIDEN 2131-12, BMP, CBCA #### [facility] ([id number]) [address], [address] [place], [place] [address]MGRDUTCP NEUTROPHIL5.8 X10E9/LNormal1.5-6.6E[facility]ria [facility] HospitalComment on above:Performed By: #### KAIDEN 2131-12, KEKE, CBCA #### [facility] ([id number]) [address] [place], [place] [address]Awyqbyvea/100 WBC (Bld)0.4 %NormalElyria Memorial Hospital Comment on above:Performed By: #### KAIDEN 2131-12, BMP, CBCA #### [facility] ([id number]) [address], [address] [place], [place] [address]Permdvkdufd (Bld) [#/Vol]0.0 10*3/uLNormal0.0-0.4Elyria Memorial HospitalComment on above:Performed By: #### KAIDEN 2131-12, BMP, CBCA #### [facility] ([id number]) [address], [address] [place], [place] [address]Iepvoqkcoff/100 WBC (Bld)0.0 %[facility] Comment on above:Performed By: #### KAIDEN 2131-12, BMP, CBCA #### [facility] ([id number]) [address], [address] [place], [place] [address]Rurvkiiskkp distribution width (RBC) [Ratio]16.2 %High11.5-15.0 [facility] Kendall HospitalComment on above:Performed By: #### KAIDEN 2131-12, BMP, CBCA #### [facility] ([id number]) [address], [facility] [address] [place], [place] [address]Hoxwehjvlq (Bld) [Volume fraction]35.1 %Fxkkxy94-12QzjXnkshbGalion Community HospitalComment on above:Performed By: #### KAIDEN 2131-12, BMP, CBCA #### [facility] ([id number]) [address] [address] [place], [place] [address]Uictmclfny (Bld) [Mass/Vol]11.3 g/dLLow11.7-15.5PUC [facility] Chester HospitalComment on above:Performed By: #### KAIDEN 2131-12, BMP, CBCA #### [facility] ([id number]) [address], [address] [place], [place] [address]Fkpxohxpztc (Bld) [#/Vol]1.1 10*3/uLNormal1.0-3.5PUC [facility] HospitalComment on above:Performed By: #### KAIDEN 2131-12, BMP, CBCA #### [facility] ([id number]) [address], [address] [place], [place] [address]Wytkyyqbbpl/100 WBC (Bld)15.7 %[facility] Comment on above:Performed By: #### THYDasha, 2131-12, BMP, CBCA #### [facility] ([id number]) [address], [address] [place], [place] [address]YAB (RBC) [Entitic mass]27.0 foPvkufi20-23FlcPgnkbj Miller HospitalComment on above:Performed By: #### THYDasha, 2131-12, BMP, CBCA #### [facility] ([id number]) [address], [address] [place], [place] [address]XNTZ (RBC) [Mass/Vol]32.2 g/rXTufuih03-71XeaTmpjsi [facility] HospitalComment on above:Performed By: #### KAIDEN, 2131-12, BMP, CBCA #### [facility] ([id number]) [address], [address] [place], [place] [address]LFY (RBC) [Entitic vol]84 cXMtetta94-371VuoDhmgng [facility] HospitalComment on above:Performed By: #### THYDasha, 2131-12, BMP, CBCA #### [facility] ([id number]) [address], [address] [place], [place] [address]Hrlglputy (Bld) [#/Vol]0.2 10*3/uLNormal0-0.9ProMedica Miller HospitalComment on above:Performed By: #### THYDasha, 2131-12, BMP, CBCA #### [facility] ([id number]) [address], [address] [place], [place] [address]Bqwtkycfi/100 WBC (Bld)2.3 %NormalProMedica Miller Hospital Comment on above:Performed By: #### THYR, 2131-12, BMP, CBCA #### [facility] ([id number]) [address], [address] [place], [place] [address]Bcgtndiqhlj/100 WBC (Bld)81.6 %NormalProMedica Miller Hospital Comment on above:Performed By: #### KAIDEN, 2131-12, BMP, CBCA #### [facility] ([id number]) [address], [address] [place], [place] [address]Pbxwrpix mean volume (Bld) [Entitic vol]8.1 fLNormal7-12 [facility] HospitalComment on above:Performed By: #### KAIDEN, 2131-12, BMP, CBCA #### [facility] ([id number]) [address], [address] [place], [place] [address]Ldgcibdan (Bld) [#/Vol]380 10*3/qXPrfvql506-997InkQxncuc [place] HospitalComment on above:Performed By: #### KAIDEN, 2131-12, BMP, CBCA #### [facility] ([id number]) [address], [address] [place] [address]RUH COUNT4.19 X10E12/LNormal3.80-5.20[facility] Comment on above:Performed By: #### KAIDEN, 2131-12, BMP, CBCA #### [facility] ([id number]) [address], [address] [place] [address]COJ (Bld) [#/Vol]7.2 10*3/uLNormal4.0-11.0E[facility] HospitalComment on above:Performed By: #### KAIDEN, 2131-12, BMP, CBCA #### [facility] ([id number]) [address], [address] [place] [address]AYW auto differentialon 46-58-6341Tttqivoey (Bld) [#/Vol]0.0 10*3/uLProMedica Health SystemBasophils/100 WBC (Bld)0.4 %ProMEssentia Health SystemEosinophils (Bld) [#/Vol]0.0 10*3/uLProMedica Health SystemEosinophils/100 WBC (Bld)0.0 %[facility]rbana HospitalErythrocyte distribution width (RBC) [Ratio]16.2 %High11.5 - 15.0 %[facility]ana HospitalHematocrit (Bld) [Volume fraction]35.1 %35 - 47 %[facility] HospitalHemoglobin (Bld) [Mass/Vol]11.3 g/dLLow11.7 - 15.5 g/dLMercy Health Urbana HospitalInterpretation and review of laboratory resultsAbnormWooster Community HospitalLymphocytes (Bld) [#/Vol]1.1 10*3/[facility] Health SystemLymphocytes/100 WBC (Bld)15.7 %[facility] HospitalMCH (RBC) [Entitic mass]27.0 pg27 - 34 pgPGerman HospitalMCHC (RBC) [Mass/Vol]32.2 g/dL32 - 36 g/dLMercy Health Urbana HospitalMCV (RBC) [Entitic vol]84 fL80 - 100 [facility] Blue SpringsMonocytes (Bld) [#/Vol]0.2 10*3/[facility] Health SystemMonocytes/100 WBC (Bld)2.3 %[facility]ana HospitalNeutrophils (Bld) [#/Vol]5.8 10*3/[facility] Health SystemNeutrophils/100 WBC (Bld)81.6 % [facility] HospitalPlatelet mean volume (Bld) [Entitic vol]8.1 fL7 - 12 fL [facility] HospitalPlatelets (Bld) [#/Vol]380 10*3/[facility] RBC (Bld) [#/Vol]4.19 10*6/[facility] SystemWBC corrected for nucl RBC Auto (Bld) [#/Vol]7.2PDuke Lifepoint HealthcareCobalamin (Vitamin B12) [Mass/Vol]on 39-01-1547DmfDdjrmeGerman HospitalTHYROID PROFILEon 92-07-4887Lrzi T4 [Mass/Vol]1.19 ng/dLNormal0.61-1.60[facility] Comment on above:Performed By: #### THYR, 2132-9, BMP, CBCA #### [facility] ([id number]) [address], [address] [place], [place] [address]CAH4.11 uIU/mLLow0.49-4.67E[facility] HospitalComment on above:Performed By: #### THYR, 2131-12, BMP, CBCA #### [facility] ([id number]) [address], [address] [place], [place] [address]Idfvbzu profile includes TSH FT4on 79-07-3959Tqny T4 [Mass/Vol] 1.19 ng/dL0.61 - 1.60 ng/dLMercy Health Urbana HospitalInterpretation and review of laboratory resultsAbnormalCommunity Health Qn0.11 m[IU]/LLowBrooke Glen Behavioral HospitalVITAMIN B12on 36-93-1911Hsnzaweqz (Vitamin B12) [Mass/Vol]204 pg/pPDodvjw545-577NhiCxntwh [place] HospitalComment on above: Performed By: #### THYR, 2131-12, BMP, CBCA #### [facility] ([id number]) [address], [address] [place], [place] [address]Swliedy B12on 76-37-5153Qhvstamsj (Vitamin B12) [Mass/Vol]204 pg/mL180 - 914 pg/mLMercy Health Urbana HospitalPOCT Influenza A/Influenza B/SARS-COV-2 Veritoron 20-89-0985Burbcurb Poct Influenza A AntigenNegative [facility] HospitalExternal Poct Influenza B AntigenNegativeUNC Hospitals Hillsborough CampusARS-CoV-2 (COVID-19) Ag IA.rapid Ql (Resp)NegativeBrooke Glen Behavioral HospitalXR Chest PA and Lateralon 09-24-2023 Clinical [...] MD on 09/24/2023 11:13 PM [facility] HospitalRadiology Study observation (narrative)[facility] [employer] Healthsource SaginawXR Chest PA and LateralOrdered By: Tristen Neely on 71-83-3662PjeLhrixrGerman Hospital Work Phone: Basic Metabolic Panelon 23-05-5126Uucwo gap [Moles/Vol]8 mmol/L5 - 15 mmol/LProMedica Health SystemCalcium [Mass/Vol]9.0 mg/dL8.5 - 10.5 mg/dLProMediBarnesville Hospital SystemChloride [Moles/Vol]100 mmol/L98 - 109 mmol/LProMedica Health SystemCO2 [Moles/Vol]28 mmol/L22 - 32 mmol/LProMedica Health SystemCreatinine [Mass/Vol]1.06 mg/dLHigh0.40 - 1.00 mg/dLMercy Health Urbana HospitalComment on above:METHOD TRACEABLE TO [facility] STANDARDeGFR (CKD-EPI)non-race lrjfdisqw[address] [place], [place] [address]Comment on above: Reported eGFR is based on the CKD-EPI 1 equation that does not use a race coefficient. Glucose [Mass/Vol]148 mg/pXAvun51 - 99 mg/dLMercy Health Urbana Hospital Interpretation and review of laboratory resultsAbnoSouthwood Psychiatric Hospital System Potassium [Moles/Vol]3.4 mmol/LLow3.5 - 5.0 mmol/LProMedica Health SystemSodium [Moles/Vol]136 mmol/L134 - 146 mmol/LProMedica Health SystemUrea nitrogen [Mass/Vol]24 mg/dL5 - 27 mg/dLBrooke Glen Behavioral Hospital Basic Metabolic Panelon 95-64-8799Iuujz gap [Moles/Vol]9 mmol/L5 - 15 mmol/L [facility] SystemCalcium [Mass/Vol]8.8 mg/dL8.5 - 10.5 mg/dLMercy Health Urbana HospitalChloride [Moles/Vol]103 mmol/L98 - 109 mmol/LProMedw. d. partlow developmental center Health SystemCO2 [Moles/Vol]27 mmol/L22 - 32 mmol/[facility] SystemCreatinine [Mass/Vol]1.18 mg/dLHigh0.40 - 1.00 mg/dLMercy Health Urbana HospitalComment on above:METHOD TRACEABLE TO [facility] STANDARDeGFR (CKD-EPI)non-race jdxkjuwpi44OjsHealthSouth Medical CenterComment on above: Reported eGFR is based on the CKD-EPI 1 equation that does not use a race coefficient. Glucose [Mass/Vol]157 mg/aWQsxt29 - 99 mg/dLMercy Health Urbana Hospital Interpretation and review of laboratory resultsAbnoSouthwood Psychiatric Hospital System Potassium [Moles/Vol]3.7 mmol/L3.5 - 5.0 mmol/LProMedica Health SystemSodium [Moles/Vol]139 mmol/L134 - 146 mmol/Critical access hospitaloMedw. d. partlow developmental center Health SystemUrea nitrogen [Mass/Vol]18 mg/dL5 - 27 mg/dLBrooke Glen Behavioral Hospital Basic Metabolic Panelon 22-14-3944Bfnoy gap [Moles/Vol]5 mmol/L5 - 15 mmol/L [facility] HospitalCalcium [Mass/Vol]8.7 mg/dL8.5 - 10.5 mg/dLMercy Health Urbana HospitalChloride [Moles/Vol]104 mmol/L98 - 109 mmol/[facility] SystemCO2 [Moles/Vol]27 mmol/L22 - 32 mmol/[facility] SystemCreatinine [Mass/Vol]1.57 mg/dLHigh0.40 - 1.00 mg/dLMercy Health Urbana HospitalComment on above:METHOD TRACEABLE TO IDAL STANDARDeGFR (CKD-EPI)non-race ctkrdecsu85Cvd- [facility]—Henrico CampusComment on above: Reported eGFR is based on the CKD-EPI 2020 equation that does not use a race coefficient. Glucose [Mass/Vol]107 mg/mLQnlk88 - 99 mg/dLMercy Health Urbana Hospital Interpretation and review of laboratory resultsAbnoNorthern Regional Hospital Potassium [Moles/Vol]3.6 mmol/L3.5 - 5.0 mmol/[facility] SystemSodium [Moles/Vol]136 mmol/L134 - 146 mmol/[facility] for RehabilitationUrea nitrogen [Mass/Vol]21 mg/dL5 - 27 mg/dLBrooke Glen Behavioral Hospital Blood gas, venouson 93-06-9601Ljuetvmt patency Wrist artery --pre arterial punctureMercy Health Urbana HospitalBase deficit (Bld) [Moles/Vol]1.0 mmol/[facility] for RehabilitationCO2 (BldV) [Partial pressure]67.8 mm[Hg][facility] Community HospitalHCO3 (Bld) [Moles/Vol]28.0 mmol/LHighMercy Health Urbana HospitalInterpretation and review of laboratory resultsAbnormGrand View Health SystemOxygen (BldV) [Partial pressure]43 mm[Hg][facility] HospitalOxygen therapy source and amount [CARE]NCSamaritan North Health Center SystemOxygen/Inspired gas setting [Volume Fraction] Jbddnnxkqp62 %[facility]ana HospitalpH (BldV)7.224 [pH]Low7.320 - 7.420UNC Hospitals Hillsborough CampusaO2% Calculated from oxygen partial pressure (BldV) [Mass fraction]68.0 %Low80.0 - PINF %[facility] Hillsborough Campuspecimen site NarrativeN/AProMemorial Health System Selby General Hospitalpecimen type Nom (Spec)VENOUSBrooke Glen Behavioral HospitalCBC auto differentialon 53-32-2471Yqgdggbka (Bld) [#/Vol]0.1 10*3/[facility] SystemBasophils/100 WBC (Bld)0.6 % [facility] HospitalEosinophils (Bld) [#/Vol]0.2 10*3/[facility] SystemEosinophils/100 WBC (Bld)2.2 %[facility]ana HospitalErythrocyte distribution width (RBC) [Ratio]16.6 %High11.5 - 15.0 %[facility] Hematocrit (Bld) [Volume fraction]35.0 %35 - 47 %[facility] Hemoglobin (Bld) [Mass/Vol]11.3 g/dLLow11.7 - 15.5 g/dLMercy Health Urbana Hospital Interpretation and review of laboratory resultsAbnormWooster Community Hospital Lymphocytes (Bld) [#/Vol]2.6 10*3/[facility] SystemLymphocytes/100 WBC (Bld)25.4 %[facility] HospitalMCH (RBC) [Entitic mass]29.3 pg27 - 34 pg [facility] HospitalMCHC (RBC) [Mass/Vol]32.3 g/dL32 - 36 g/dLMercy Health Urbana HospitalMCV (RBC) [Entitic vol]91 fL80 - 100 [facility] Monocytes (Bld) [#/Vol]0.6 10*3/[facility] SystemMonocytes/100 WBC (Bld) 5.7 %[facility] HospitalNeutrophils (Bld) [#/Vol]6.7 10*3/[facility] HospitalNeutrophils/100 WBC (Bld)66.1 %[facility] HospitalPlatelet mean volume (Bld) [Entitic vol]7.9 fL7 - 12 [facility] Blue SpringsPlatelets (Bld) [#/Vol]308 10*3/[facility] SystemRBC (Bld) [#/Vol]3.86 10*6/uLMercy Health Urbana HospitalWBC corrected for nucl RBC Auto (Bld) [#/Vol]10.2PDuke Lifepoint HealthcareCritical Careon 50-10-6035Rcdmwu Vohra, MD 07/25/2023 7:27 PM Critical Care [...] performing treatments and interventions and examination of patientDivine Savior Healthcare SystemECG 12 leadon 06-80-6648IYUALAVDOYNZCOIdvPtfzlb Health SystemLaboratory - Microbiology and Antimicrobial susceptibilityon 07-25-2023 FLUAV+FLUBV RNA HUBERT+probe Ql (Unsp spec)NegativeNegative^NegativeMercy Health Urbana HospitalLactate (P yong) [Moles/Vol]on 65-08-3287NneUrwldtGerman Hospital Lactate w/ Reflexon 06-20-8130Wockusw (P yong) [Moles/Vol]1.1 mmol/L0.4 - 2.0 mmol/LPrCincinnati Children's Hospital Medical CenterComment on above: Result did not trigger repeat Lactate, re-order if needed. SARS/FLU A+B/RSV by NAAT/Molecular (M4RT Collection Tube)on 22-71-1136CXG RNA HUBERT+probe Nom (Unsp spec)NegativeNegative^NegativeMercy Health Urbana Hospital SARS-CoV-2 (COVID-19) RNA HUBERT+probe Ql (Resp)Not detectedNot Detected^Not DetectedMercy Health Urbana HospitalComment on above:NOTE The Xpert Xpress SARS-CoV-2/Flu/RSV [...] operators who are performing tests using either [employer] or cloud[employer]IQ systems and is limited to laboratories that [...] specimen repeat. Fact Sheet for Healthcare Providers: https://www.fda.gov/media/141738/download Fact Sheet for Patients: https://www.fda.gov/media/126242/download [facility] Health SystemTroponin Ion 67-64-3178Qsqtdipo I.cardiac [Mass/Vol]0.01 ng/mL0.00 - 0.04 ng/mLProMedica [facility] SystemTroponin I.cardiac [Mass/Vol]on 66-74-9783HyvFqhfpdGerman HospitalXR Chest PA and Lateralon 97-61-3130ZgkoofAbdelrahman Patel MD - 07/25/2023 Procedure: Chest x-ray performed Number of views:2 History:Shortness of breath Comparison:07/24/2023 Findings: The heart and lungs show no acute findings, and the mediastinum and satnam are grossly negative . Impression: 1. No acute change. Finalized by Abdelrahman Patel MD on 07/25/2023 5:16 PM [facility] HospitalRadiology Study observation (narrative)[facility] HospitalXR Chest PA and LateralOrdered By: Abdelrahman Patel on [id number] Hospital Work Phone: Basi Metabolic Panelon [id number] gap [Moles/Vol]8 mmol/L5 - 15 mmol/[facility] SystemCalcium [Mass/Vol]9.5 mg/dL8.5 - 10.5 mg/dLMercy Health Urbana HospitalChloride [Moles/Vol]102 mmol/L98 - 109 mmol/[facility] SystemCO2 [Moles/Vol]32 mmol/L22 - 32 mmol/[facility] SystemCreatinine [Mass/Vol]1.27 mg/dLHigh0.40 - 1.00 mg/dLMercy Health Urbana HospitalComment on above:METHOD TRACEABLE TO [facility] STANDARDeGFR (CKD-EPI)non-race [id number] Medical CenterComment on above: Reported eGFR is based on the CKD-EPI 2020 equation that does not use a race coefficient. Glucose [Mass/Vol]87 mg/dL65 - 99 mg/dLMercy Health Urbana HospitalInterpretation and review of laboratory resultsAbnormalMercy Health Urbana HospitalPotassium [Moles/Vol]4.0 mmol/L3.5 - 5.0 mmol/LProMedica Health SystemSodium [Moles/Vol] 142 mmol/L134 - 146 mmol/[facility] SystemUrea nitrogen [Mass/Vol]15 mg/dL5 - 27 mg/dLBrooke Glen Behavioral HospitalCBC auto differentialon [id number] (Bld) [#/Vol]0.1 10*3/uLMercy Health Urbana HospitalBasophils/100 WBC (Bld)0.6 %[facility] HospitalEosinophils (Bld) [#/Vol]0.1 10*3/[facility] SystemEosinophils/100 WBC (Bld)1.3 %[facility] HospitalErythrocyte distribution width (RBC) [Ratio]19.3 %High11.5 - 15.0 %[facility] HospitalHematocrit (Bld) [Volume fraction]35.7 %35 - 47 % [facility] HospitalHemoglobin (Bld) [Mass/Vol]11.5 g/dLLow11.7 - 15.5 g/dL [facility] HospitalInterpretation and review of laboratory resultsAbnormal [facility] HospitalLymphocytes (Bld) [#/Vol]1.5 10*3/[facility] SystemLymphocytes/100 WBC (Bld)14.5 %[facility] HospitalH (RBC) [Entitic mass]29.3 pg27 - 34 [facility] HospitalMCHC (RBC) [Mass/Vol]32.2 g/dL32 - 36 g/dLMercy Health Urbana HospitalMCV (RBC) [Entitic vol]91 fL80 - 100 [facility] SpringsMonocytes (Bld) [#/Vol]0.6 10*3/[facility] Monocytes/100 WBC (Bld)5.8 %[facility] HospitalNeutrophils (Bld) [#/Vol]8.1 10*3/[facility] HospitalNeutrophils/100 WBC (Bld)77.8 %[facility] HospitalPlatelet mean volume (Bld) [Entitic vol]8.9 fL7 - 12 [facility] SpringsPlatelets (Bld) [#/Vol]321 10*3/[facility] SystemRBC (Bld) [#/Vol]3.92 10*6/[facility] SystemWBC corrected for nucl RBC Auto (Bld) [#/Vol]10.5PDuke Lifepoint HealthcareTSH with Reflexon 70-36-6309EFI Qn0.80 m[IU]/[facility] HospitalCBC AND AUTO DIFFon 77-59-2421LUYRZUQA BASOPHIL0.1 X10E9/LNormal0.0-0.2ProMedica University Tuberculosis HospitalComment on above:Performed By: #### XENIA, 97666-1, , CBCA #### [facility] ([id number]) [address] [place], [place] [address]OOPHWTOG NEUTROPHIL6.7 X10E9/LHigh1.5-6.6ProCentervilleComment on above:Performed By: #### XENIA, 56070-8, , CBCA #### [facility] ([id number]) [address] [place], [place] [address]Yxtuvsnys/100 WBC (Bld)1.2 %NormalCleveland Clinic [facility]ron General Comment on above:Performed By: #### XENIA, 46043-2, , CBCA #### [facility] ([id number]) [address] [place], [place] [address]Gqwlpvqvtkt (Bld) [#/Vol]0.2 10*3/uLNormal0.0-0.4ProCentervilleComment on above:Performed By: #### XENIA, 58096-7, , CBCA #### [facility] ([id number]) [address] [place], [place] [address]Ejlpnqcvkhu/100 WBC (Bld)2.2 %NormalCleveland Clinic [facility]ron General Comment on above:Performed By: #### XENIA, 44003-6, , CBCA #### [facility] ([id number]) [address] [place], [place] [address]Fjcbgjzsbsf distribution width (RBC) [Ratio]17.3 %High11.5-15.0 ProMMercy Health Clermont HospitalComment on above:Performed By: #### XENIA, 34981-4, , CBCA #### [facility] ([id number]) [address] [place], [place] [address]Gcalinfctn (Bld) [Volume fraction]40.6 %Udqaav51-80NgsLuyrgeCentervilleComment on above:Performed By: #### CMP, 08815-7, , CBCA #### [facility] ([id number]) [address] [place], [place] [address]Peqivadknr (Bld) [Mass/Vol]13.3 g/jHMmqjye65.7-15.5PMercy Health Allen HospitalComment on above:Performed By: #### CMP, 95649-5, 89064-2, CBCA #### [facility] ([id number]) [address] [facility] [place], [place] [address]Xosvctggtow (Bld) [#/Vol]2.4 10*3/uLNormal1.0-3.5PMercy Health Allen HospitalComment on above:Performed By: #### CMP, 07148-4, , CBCA #### [facility] ([id number]) [address] [place], [place] [address]Agjzucivvbl/100 WBC (Bld)22.7 %NormalProCenterville Comment on above:Performed By: #### CMP, 25342-0, , CBCA #### [facility] ([id number]) [address] [place], [place] [address]MHR (RBC) [Entitic mass]28.4 vuIaxdqp06-05XtiTdjidzCleveland Clinic Akron GeneralComment on above:Performed By: #### CMP, 63894-6, , CBCA #### [facility] ([id number]) [address] [place], [place] [id number] (RBC) [Mass/Vol]32.7 g/dPDbzmsj59-33FqmSvqvuxCentervilleComment on above:Performed By: #### CMP, 63456-8, , CBCA #### [facility] ([id number]) [address] [place], [place] [id number] (RBC) [Entitic vol]87 iTLfxajd39-389TtyKeslle Baypark HospitalComment on above:Performed By: #### CMP, 67239-9, 70861-5, CBCA #### [facility] ([id number]) [address] [place], [place] [address]Ctxlpljhq (Bld) [#/Vol]1.2 10*3/uLHigh0-0.9ProCentervilleComment on above:Performed By: #### CMP, 15901-8, 57815-7, CBCA #### [facility] ([id number]) [address] [place], [place] [address]Hnajsggks/100 WBC (Bld)11.2 %NormalCleveland Clinic [facility] General Comment on above:Performed By: #### CMP, 56093-4, , CBCA #### [facility] ([id number]) [address] [place], [place] [address]Xqcoejwmmzi/100 WBC (Bld)62.7 %NormalCleveland Clinic [facility] Comment on above:Performed By: #### CMP, 69547-2, , CBCA #### [facility] ([id number]) [address] [place], [place] [address]Kaptheyl mean volume (Bld) [Entitic vol]8.3 fLNormal7-12 ProMMercy Health Clermont HospitalComment on above:Performed By: #### CMP, 10792-6, , CBCA #### [facility] ([id number]) [address] [place], [place] [address]Qbmnoposn (Bld) [#/Vol]301 10*3/qVJpnblk046-617HnoAtdlwp Baypark HospitalComment on above:Performed By: #### CMP, 08177-3, 14132-9, CBCA #### [facility] ([id number]) [address] [place], [place] [address]JES COUNT4.68 X10E12/LNormal3.80-5.20[facility] Comment on above:Performed By: #### CMP, 20312-4, 14810-0, CBCA #### [facility] ([id number]) [address] [place], [place] [address]CWM (Bld) [#/Vol]10.7 10*3/uLNormal4.0-11.0ProCentervilleComment on above:Performed By: #### XENIA, 75543-2, , CBCA #### [facility] ([id number]) [address] [place], [place] [address]XIVZWQXOIWVSO METABOLIC PANELon 38-47-1619Lndzlgd [Mass/Vol]3.5 g/dLNormal3.2-5.3ProMedFlower Hospital HospitalComment on above:Performed By: #### XENIA, 23601-2, 16527-6, CBCA #### [facility] ([id number]) [address] [place], [place] [address]FSJ [Catalytic activity/Vol]72 U/FSmqfcn24-732FljSwvjkxCentervilleComment on above:Performed By: #### XENIA, 70518-8, 12463-6, CBCA #### [facility] ([id number]) [address] [place], [place] [address]TNX [Catalytic activity/Vol]42 U/LHigh0-31PMercy Health Allen HospitalComment on above:Performed By: #### XENIA, 91455-8, , CBCA #### [facility] ([id number]) [address] [place], [place] [address]Denby gap [Moles/Vol]9 mmol/LNormal5-15ProMetrohealth [facility] HospitalComment on above:Performed By: #### CMP, 77982-0, 90122-1, CBCA #### [facility] ([id number]) [address] [place], [place] [address]TEA [Catalytic activity/Vol]22 U/LNormal0-41ProMetrohealth [facility] HospitalComment on above:Performed By: #### XENIA, 58924-6, 82008-8, CBCA #### [facility] ([id number]) [address] [place], [place] [address]Tcmvqgfrh [Mass/Vol]0.8 mg/dLNormal0.3-1.2PMercy Health Allen HospitalComment on above:Performed By: #### XENIA, 22737-6, , CBCA #### [facility] ([id number]) [address] [place], [place] [address]Lbqbcsq [Mass/Vol]10.2 mg/dLNormal8.5-10.5PMercy Health Allen HospitalComment on above:Performed By: #### XENIA, 49237-2, , CBCA #### [facility] ([id number]) [address] [place], [place] [address]Mamfwmzj [Moles/Vol]105 mmol/WBuqshm71-765WtsGfrmlzCleveland Clinic Akron GeneralComment on above:Performed By: #### XENIA, 14748-3, , CBCA #### [facility] ([id number]) [address] [place], [place] [address]KX3 [Moles/Vol]22 mmol/ZQemouq56-68AeyOhuoodMercy Health Allen Hospital Comment on above:Performed By: #### XENIA, 73914-9, , CBCA #### [facility] ([id number]) [address] [place], [place] [address]Xspcgrcfjv [Mass/Vol]1.29 mg/dLHigh0.40-1.00[facility] GeneralComment on above:Result Comment: METHOD TRACEABLE TO IDMS STANDARD Performed By: #### XENIA, 55527-7, , CBCA #### [facility] ([id number]) [address] [place], [place] [address]HIT/1.73 sq M.predicted among non-blacks MDRD (S/P/Bld) [Vol rate/Area]48 mL/min/{1.73_m2}Low>59ProCentervilleComment on above: Result Comment: Reported eGFR is based on the CKD-EPI 2020 equation that does not use a race coefficient.Performed By: #### XENIA, 09215-6, , CBCA #### [facility] ([id number]) [address] [place], [place] [address]Lkhnfdj [Mass/Vol]116 mg/mCHbmw96-15PsgXrwlimCenterville Comment on above:Performed By: #### XENIA, 16894-4, 38926-1, CBCA #### [facility] ([id number]) [address] [facility] [place], [place] [address]Nxtjofjuo [Moles/Vol]3.2 mmol/LLow3.5-5.0ProCentervilleComment on above:Performed By: #### XENIA, 69836-3, 61478-8, CBCA #### [facility] ([id number]) [address] [place], [place] [address]Dkuokvi [Mass/Vol]7.8 g/dLNormal6.0-8.0ProCentervilleComment on above:Performed By: #### XENIA, 78066-2, , CBCA #### [facility] ([id number]) [address] [facility] [place], [place] [address]Kipruz [Moles/Vol]136 mmol/VFwyyva851-171UhtHskbum [facility]park HospitalComment on above:Performed By: #### XENIA, 35915-4, , CBCA #### [facility] ([id number]) [address] [place], [place] [address]Qpnl nitrogen [Mass/Vol]30 mg/dLHigh5-23ProCentervilleComment on above:Performed By: #### XENIA, 59261-0, , CBCA #### [facility] ([id number]) [address] [facility] [place], [place] [address]VT ABDOMEN AND PELVIS WO CONTon 83-08-5670AY ABDOMEN AND PELVIS WO CONTCT ABDOMEN AND [...] by Kai Finn MD on 04/28/2023 10:39 PMNormalProCentervilleGlucose Glucometer (BldC) [Mass/Vol]on 36-92-2582Bqkztjl [Mass/Vol]148 mg/iZZbjj43-96DqgZvzwksCleveland Clinic Akron GeneralGlucose [Mass/Vol]116 mg/wIYvhm42-54 [facility] GeneralGlucose [Mass/Vol]134 mg/jNVlry56-38QewVexngbCleveland Clinic Akron GeneralMAGNESIUMon 15-69-9600Rcjkiktuk [Mass/Vol]2.3 mg/dLNormal1.8-2.6 [facility] GeneralComment on above:Performed By: #### [facility], 05575-9, 61176-2, CBCA #### [facility] ([id number]) [address] [facility] [place], [place] [address]Pdfslgrdsc [Mass/Vol]on 94-84-8265VBWFOTBWLJ86.1 ug/mLNormal 5.0-40.0C[facility] GeneralComment on above:Result Comment: Peak 30-40 ug/mL Trough 5-20 ug/ml Performed By: #### XENIA, 37942-3, , CBCA #### [facility] ([id number]) [address] [facility] [place], [place] [address]NIC AND AUTO DIFFon 38-44-6092CESWFURB BASOPHIL0.1 X10E9/LNormal 0.0-0.2ProMedAkron Children's HospitalComment on above:Performed By: #### XENIA, 45188- 0, , CBCA #### [facility] ([id number]) [address] [facility] [place], [place] [address]Bzsrcocxf/100 WBC (Bld)1.0 %NormalProCenterville Comment on above:Performed By: #### XENIA, 68248-9, , CBCA #### [facility] ([id number]) [address] [facility] [place], [place] [address]Beofzwilinr distribution width (RBC) [Ratio]17.6 %High11.5-15.0 [facility] HospitalComment on above:Performed By: #### XENIA, 11733-1, , CBCA #### [facility] ([id number]) [address] [facility] [place], [place] [address]Llzlfespny (Bld) [Volume fraction]42.6 %Cfbeia90-35TtmFriggaCentervilleComment on above:Performed By: #### XENIA, 65609-5, , CBCA #### [facility] ([id number]) [address] [facility] [place], [place] [address]Oxenbzjpjr (Bld) [Mass/Vol]13.6 g/kYFyzhyz71.7-15.5PMercy Health Allen HospitalComment on above:Performed By: #### XENIA, 71309-2, , CBCA #### [facility] ([id number]) [address] [facility] [place], [place] [address]LNZWMHOJRW, ATYPICAL1.9 %NormalProCentervilleComment on above:Performed By: #### CMP, 07495-3, , CBCA #### [facility] ([id number]) [address] [facility] [place], [place] [address]Plsyqkxrbje (Bld) [#/Vol]3.1 10*3/uLNormal1.0-3.5ProMedica University Tuberculosis HospitalComment on above:Performed By: #### CMP, 87128-8, 94448-3, CBCA #### [facility] ([id number]) [address] [place], [place] [address]Wxalanwjdcr/100 WBC (Bld)29.5 %NormalProCenterville Comment on above:Performed By: #### XENIA, 59168-8, , CBCA #### [facility] ([id number]) [address] [facility] [place], [place] [address]EMZ (RBC) [Entitic mass]27.7 dsLnpvjq71-20NmbDyuxycCentervilleComment on above:Performed By: #### XENIA, 97594-2, , CBCA #### [facility] ([id number]) [address] [facility] [place], [place] [address]DGCA (RBC) [Mass/Vol]32.0 g/pBFjsmmy07-14DcaWosqotCentervilleComment on above:Performed By: #### CMP, 33194-1, , CBCA #### [facility] ([id number]) [address] [facility] [place], [place] [address]XOL (RBC) [Entitic vol]87 nGJplixd39-449YeqOtgoru Baypark HospitalComment on above:Performed By: #### CMP, 46164-7, 06659-5, CBCA #### [facility] ([id number]) [address] [facility] [place], [place] [address]Wgxmccfzx (Bld) [#/Vol]1.2 10*3/uLHigh0-0.9ProCentervilleComment on above:Performed By: #### CMP, 38875-5, 86635-0, CBCA #### [facility] ([id number]) [address] [place], [place] [address]Aqvkoxhyx/100 WBC (Bld)12.4 %NormalCleveland Clinic Akron General Comment on above:Performed By: #### XENIA, 33891-5, , CBCA #### [facility] ([id number]) [address] [place], [place] [address]Exsrwahvllz (Bld) [#/Vol]5.4 10*3/uLNormal1.5-6.6ProCentervilleComment on above:Performed By: #### XENIA, 76157-8, 42468-6, CBCA #### [facility] ([id number]) [address] [place], [place] [address]Unxlifye mean volume (Bld) [Entitic vol]8.6 fLNormal7-12 ProMedicSelect Medical Specialty Hospital - Cleveland-FairhillComment on above:Performed By: #### XENIA, 98471-8, , CBCA #### [facility] ([id number]) [address] [place], [place] [address]Tqpjmsrzp (Bld) [#/Vol]398 10*3/jNPojmyu799-147YbgEvyyxg [facility] HospitalComment on above:Performed By: #### XENIA, 30431-2, , CBCA #### [facility] ([id number]) [address] [place], [place] [address]MCCYJZFQZNOWQ0+AbnormalNONEProMedica University Tuberculosis HospitalComment on above:Performed By: #### XENIA, 10047-2, , CBCA #### [facility] ([id number]) [address] [place], [place] [address]FMN COUNT4.92 X10E12/LNormal3.80-5.20ProCent[place] Comment on above:Performed By: #### CMP, 35243-0, , CBCA #### [facility] ([id number]) [address] [place], [place] [address]LEU GNYJTZPNMB50.2 %NormalProMedica Baypark HospitalComment on above:Performed By: #### CMP, 86937-4, , CBCA #### [facility] ([id number]) [address] [place], [place] [address]REL (Bld) [#/Vol]9.7 10*3/uLNormal4.0-11.0[facility] HospitalComment on above:Performed By: #### XENIA, 15607-3, , CBCA #### [facility] ([id number]) [address] [place], [place] [address]FCIJXXIHJEFCU METABOLIC PANELon 20-35-9789Jniiqpg [Mass/Vol]3.8 g/dLNormal3.2-5.3[facility] HospitalComment on above:Performed By: #### XENIA, 58974-7, , CBCA #### [facility] ([id number]) [address] [place], [place] [address]YXO [Catalytic activity/Vol]80 U/RIxdibi30-057YavGvnetv [facility] HospitalComment on above:Performed By: #### XENIA, 10294-8, , CBCA #### [facility] ([id number]) [address] [place], [place] [address]ILB [Catalytic activity/Vol]49 U/LHigh0-31ProMedFlower Hospital HospitalComment on above:Performed By: #### XENIA, 13572-8, , CBCA #### [facility] ([id number]) [address] [place], [place] [address]Zakka gap [Moles/Vol]11 mmol/LNormal5-15[facility] HospitalComment on above:Performed By: #### CMP, 10131-9, , CBCA #### [facility] ([id number]) [address] [place], [place] [address]GFG [Catalytic activity/Vol]26 U/LNormal0-41ProMediMary [facility] Hospital HospitalComment on above:Performed By: #### CMP, 01587-8, , CBCA #### [facility] ([id number]) [address] [place], [place] [address]Jnptfhsrm [Mass/Vol]0.5 mg/dLNormal0.3-1.2PMercy Health Allen HospitalComment on above:Performed By: #### XENIA, 02093-2, 37992-4, CBCA #### [facility] ([id number]) [address] [place], [place] [address]Walclvk [Mass/Vol]10.8 mg/dLHigh8.5-10.5PMercy Health Allen HospitalComment on above:Performed By: #### XENIA, 46385-4, , CBCA #### [facility] ([id number]) [address] [place], [place] [address]Mdxlpxmw [Moles/Vol]109 mmol/RPdudqd16-570HutForabyCentervilleComment on above:Performed By: #### XENIA, 02321-9, , CBCA #### [facility] ([id number]) [address] [place], [place] [address]SJ1 [Moles/Vol]20 mmol/UUdl61-80TohUvcydeMercy Health Allen Hospital Comment on above:Performed By: #### XENIA, 54919-5, , CBCA #### [facility] ([id number]) [address] [place], [place] [address]Gypzcnwnch [Mass/Vol]1.00 mg/dLNormal0.40-1.00ProCentervilleComment on above:Result Comment: METHOD TRACEABLE TO IDMS STANDARD Performed By: #### XENIA, 06952-9, , CBCA #### [facility] ([id number]) [address] [place], [place] [address]PLH/1.73 sq M.predicted among non-blacks MDRD (S/P/Bld) [Vol rate/Area]64 mL/min/{1.73_m2}Normal>59ProCentervilleComment on above:Result Comment: Reported eGFR is based on the CKD-EPI 2020 equation that does not use a race coefficient.Performed By: #### XENIA, 89067-0, , CBCA #### [facility] ([id number]) [address] [place], [place] [address]Mtdstpq [Mass/Vol]144 mg/bSLtbq27-48AcqOjulltCleveland Clinic [facility] General Comment on above:Performed By: #### XENIA, 47465-1, 92000-2, CBCA #### [facility] ([id number]) [address] [place], [place] [address]Hhbavojjg [Moles/Vol]3.9 mmol/LNormal3.5-5.0ProCentervilleComment on above:Performed By: #### XENIA, 10245-7, , CBCA #### [facility] ([id number]) [address] [place], [place] [address]Ygnvybz [Mass/Vol]8.7 g/dLHigh6.0-8.0[facility] Comment on above:Performed By: #### XENIA, 19191-5, , CBCA #### [facility] ([id number]) [address] [place], [place] [address]Esqvif [Moles/Vol]140 mmol/XDnyxgt170-162YskMymzhl [facility] HospitalComment on above:Performed By: #### XENIA, 06442-8, , CBCA #### [facility] ([id number]) [address] [place], [place] [address]Lzeq nitrogen [Mass/Vol]24 mg/dLHigh5-23ProCentervilleComment on above:Performed By: #### XENIA, 03539-2, , CBCA #### [facility] ([id number]) [address] [place], [place] [address]Shqhxlg Glucometer (BldC) [Mass/Vol]on 43-62-9603Qsgfpsw [Mass/Vol]138 mg/fQNexd38-56IttIckqlhCentervilleGlucose [Mass/Vol]175 mg/nZKzys92-68GhhDwquziCentervilleMAGNESIUMon 53-64-2245Amfmnqiur [Mass/Vol]2.6 mg/dLNormal1.8-2.6ProCentervilleComment on above: Performed By: #### XENIA, 86982-6, 28085-0, CBCA #### [facility] ([id number]) [address] [place], [place] [address]QEDIWWEIMsq 91-34-6657Ykhqbsoyy [Moles/Vol]3.9 mmol/LNormal 3.5-5.0ProCentervilleComment on above:Performed By: #### XENIA, 40407- 0, , CBCA #### [facility] ([id number]) [address] [place], [place] [address]AP CHEST 1 VWon 26-77-3332VQ CHEST 1 VWXR CHEST 1 VW Clinical History: Pneumonia. Portable Upright chest: 04/28/2023 Comparison: 04/23/2023 Findings: A single portable view of the chest was obtained. There is strandy density in the lower lungs with interval improvement. No pneumothorax or definite pleural effusion is a. Mediastinal contours are stable IMPRESSION: Basilar opacities compatible with atelectasis. Finalized by Saurabh Anderson MD on 04/28/2023 9:57 AMNormalProCentervilleBLOOD CULTUREon 51-83-6985Xindlktk identified Aer cx Nom (Bld)CULTURE RESULTS NO GROWTH 5 DAYSNormalCleveland Clinic Akron GeneralBacteria identified Aer cx Nom (Bld)CULTURE RESULTS NO GROWTH 5 DAYSNormalProCentervilleCBC AND AUTO DIFFon 04-27-2023 ABSOLUTE BASOPHIL0.2 X10E9/LNormal0.0-0.2[facility] HospitalComment on above:Performed By: #### XENIA, 78116-3, , CBCA #### [facility] ([id number]) [address] [place], [place] [id number] NEUTROPHIL3.9 X10E9/LNormal1.5-6.6ProCentervilleComment on above:Performed By: #### CMP, 16520-9, , CBCA #### [facility] ([id number]) [address] [facility] [place], [place] [address]Hkesaalqw/100 WBC (Bld)2.9 %NormalCleveland Clinic Akron General Comment on above:Performed By: #### CMP, 33629-8, , CBCA #### [facility] ([id number]) [address] [facility] [place], [place] [id number] (Bld) [#/Vol]0.1 10*3/uLNormal0.0-0.4ProCentervilleComment on above:Performed By: #### CMP, 44561-5, , CBCA #### [facility] ([id number]) [address] [facility] [place], [place] [address]Aqpnqerxamu/100 WBC (Bld)1.7 %NormalCleveland Clinic Akron General Comment on above:Performed By: #### CMP, 22744-1, , CBCA #### [facility] ([id number]) [address] [facility] [place], [place] [id number] distribution width (RBC) [Ratio]17.7 %High11.5-15.0 ProMedicSelect Medical Specialty Hospital - Cleveland-FairhillComment on above:Performed By: #### CMP, 86391-0, , CBCA #### [facility] ([id number]) [address] [place] [place], [place] [id number] (Bld) [Volume fraction]38.8 %Hkvqdm88-72YaiWrirxfCentervilleComment on above:Performed By: #### CMP, 58870-9, , CBCA #### [facility] ([id number]) [address] [facility] [place], [place] [address]Oasxjofcfk (Bld) [Mass/Vol]12.7 g/rQPhydgn89.7-15.5Pro[facility] University Tuberculosis HospitalComment on above:Performed By: #### CMP, 14880-2, , CBCA #### [facility] ([id number]) [address] [facility] [place], [place] [address]Odvinzxixpj (Bld) [#/Vol]1.7 10*3/uLNormal1.0-3.5Pro[facility] University Tuberculosis HospitalComment on above:Performed By: #### CMP, 81991-5, , CBCA #### [facility] ([id number]) [address] [place], [place] [address]Jehudmpaqxe/100 WBC (Bld)26.3 %NormalProCenterville Comment on above:Performed By: #### XENIA, 90759-9, , CBCA #### [facility] ([id number]) [address] [place], [place] [address]GGF (RBC) [Entitic mass]28.2 nhCczika02-70HqjRwmbzoCentervilleComment on above:Performed By: #### XENIA, 47664-4, , CBCA #### [facility] ([id number]) [address] [place], [place] [address]BNCJ (RBC) [Mass/Vol]32.7 g/bFOubplp72-18GwkCetsjnCentervilleComment on above:Performed By: #### CMP, 02898-9, , CBCA #### [facility] ([id number]) [address] [facility] [place], [place] [address]BAB (RBC) [Entitic vol]86 tDOfgurx61-299FzoLupdnx Baypark HospitalComment on above:Performed By: #### CMP, 63014-9, 28489-8, CBCA #### [facility] ([id number]) [address] [facility] [place], [place] [address]Itnqtxyjw (Bld) [#/Vol]0.7 10*3/uLNormal0-0.9ProCentervilleComment on above:Performed By: #### CMP, 10158-2, 99664-1, CBCA #### [facility] ([id number]) [address] [place], [place] [address]Kacsgvvjm/100 WBC (Bld)10.1 %NormalCleveland Clinic Akron General Comment on above:Performed By: #### CMP, 42359-2, 56978-4, CBCA #### [facility] ([id number]) [address] [place], [place] [address]Zqjwrzbsyct/100 WBC (Bld)59.0 %NormalCleveland Clinic [facility]ron General Comment on above:Performed By: #### CMP, 83205-9, 89288-3, CBCA #### [facility] ([id number]) [address] [place], [place] [address]Tliwjruu mean volume (Bld) [Entitic vol]8.1 fLNormal7-12 ProMMercy Health Clermont HospitalComment on above:Performed By: #### XENIA, 80525-3, , CBCA #### [facility] ([id number]) [address] [place], [place] [address]Tfnwkhvam (Bld) [#/Vol]364 10*3/uIDgpxvu540-796AquNwfwft Baypark HospitalComment on above:Performed By: #### XENIA, 13955-9, , CBCA #### [facility] ([id number]) [address] [place], [place] [address]ZKR COUNT4.49 X10E12/LNormal3.80-5.20[facility] Comment on above:Performed By: #### CMP, 97224-0, , CBCA #### [facility] ([id number]) [address] [place], [place] [address]AMY (Bld) [#/Vol]6.6 10*3/uLNormal4.0-11.0C[facility] Clinic [facility] GeneralComment on above:Performed By: #### CMP, 57290-8, 73103-4, CBCA #### [facility] ([id number]) [address] [place], [place] [address]RGBLCIKCYUQPI METABOLIC PANELon 10-19-4704Iiowqqk [Mass/Vol]3.7 g/dLNormal3.2-5.3ProMedFlower Hospital HospitalComment on above:Performed By: #### XENIA, 31899-3, , CBCA #### [facility] ([id number]) [address] [place], [place] [address]TSG [Catalytic activity/Vol]74 U/OObgrpr06-995DigOduexrCentervilleComment on above:Performed By: #### XENIA, 67830-4, , CBCA #### [facility] ([id number]) [address] [place], [place] [address]JUB [Catalytic activity/Vol]47 U/LHigh0-31ProMedAkron Children's HospitalComment on above:Performed By: #### XENIA, 79130-8, , CBCA #### [facility] ([id number]) [address] [place], [place] [address]Ebtma gap [Moles/Vol]12 mmol/LNormal5-15ProCentervilleComment on above:Performed By: #### XENIA, 17251-0, , CBCA #### [facility] ([id number]) [address] [place], [place] [address]KSI [Catalytic activity/Vol]29 U/LNormal0-41ProCentervilleComment on above:Performed By: #### XENIA, 32869-3, , CBCA #### [facility] ([id number]) [address] [place], [place] [address]Oxezxobpf [Mass/Vol]0.6 mg/dLNormal0.3-1.2PTriHealth McCullough-[facility] HospitalComment on above:Performed By: #### CMP, 87442-1, , CBCA #### [facility] ([id number]) [address] [place], [place] [address]Wkpdkom [Mass/Vol]10.3 mg/dLNormal8.5-10.5PTriHealth McCull[facility] HospitalComment on above:Performed By: #### XENIA, 37264-7, , CBCA #### [facility] ([id number]) [address] [place], [place] [address]Djzblrjr [Moles/Vol]108 mmol/CMcihum08-707CjqDtmnhhCentervilleComment on above:Performed By: #### XENIA, 59295-8, 67101-2, CBCA #### [facility] ([id number]) [address] [place], [place] [address]LP3 [Moles/Vol]21 mmol/OQft92-24IhyPfhajsMercy Health Allen Hospital Comment on above:Performed By: #### XENIA, 04059-5, , CBCA #### [facility] ([id number]) [address] [place] [place], [place] [address]Rwiwaoywmp [Mass/Vol]1.03 mg/dLHigh0.40-1.00ProCentervilleComment on above:Result Comment: METHOD TRACEABLE TO IDMS STANDARD Performed By: #### XENIA, 85101-2, , CBCA #### [facility] ([id number]) [address] [place], [place] [address]UHL/1.73 sq M.predicted among non-blacks MDRD (S/P/Bld) [Vol rate/Area]62 mL/min/{1.73_m2}Normal>59ProCentervilleComment on above:Result Comment: Reported eGFR is based on the CKD-EPI 1 equation that does not use a race coefficient.Performed By: #### XENIA, 03841-0, , CBCA #### [facility] ([id number]) [address] [place], [place] [address]Mkhfrtc [Mass/Vol]121 mg/pPJarr04-81NglKowwudCenterville Comment on above:Performed By: #### XENIA, 37683-2, , CBCA #### [facility] ([id number]) [address] [place], [place] [address]Dyepsgier [Moles/Vol]3.3 mmol/LLow3.5-5.0ProMedica Baypark HospitalComment on above:Performed By: #### XENIA, 92301-0, , CBCA #### [facility] ([id number]) [address] [place], [place] [address]Sgbnoqy [Mass/Vol]8.3 g/dLHigh6.0-8.0[facility] Comment on above:Performed By: #### XENIA, 41077-5, , CBCA #### [facility] ([id number]) [address] [place], [place] [address]Wpcsbw [Moles/Vol]141 mmol/LIgeeco735-997EspNabdqd Baypark HospitalComment on above:Performed By: #### XENIA, 68394-8, , CBCA #### [facility] ([id number]) [address] [place], [place] [address]Dkir nitrogen [Mass/Vol]17 mg/dLNormal5-23ProCentervilleComment on above:Performed By: #### XNEIA, 87500-8, , CBCA #### [facility] ([id number]) [address] [place], [place] [id number] Glucometer (BldC) [Mass/Vol]on 61-39-2695Vfeeeag [Mass/Vol]127 mg/kVGkom94-42SzhJuwcdbCleveland Clinic Akron GeneralGlucose [Mass/Vol]119 mg/xBAuas80-07XduNjasxeCentervilleGlucose [Mass/Vol]132 mg/pARaah11-09 ProMMercy Health Clermont HospitalGlucose [Mass/Vol]119 mg/gDKcmb60-87KcmUvjsyxCleveland Clinic Akron GeneralMAGNESIUMon 77-80-8341Xpsjzyfdt [Mass/Vol]2.5 mg/dLNormal1.8-2.6 [facility] GeneralComment on above:Performed By: #### XENIA, 50541-6, , CBCA #### [facility] ([id number]) [address] [place], [place] [id number] 82-43-2119Qsqjgyjbf [Moles/Vol]3.7 mmol/LNormal 3.5-5.0ProCentervilleComment on above:Performed By: #### XENIA, 54860- 0, , CBCA #### [facility] ([id number]) [address] [place], [place] [address]DYO AND AUTO DIFFon 01-06-0307SGIJYMUH BASOPHIL0.1 X10E9/LNormal 0.0-0.2ProMedica University Tuberculosis HospitalComment on above:Performed By: #### XENIA, 05390- 0, , CBCA #### [facility] ([id number]) [address] [place], [place] [address]YTIMPIGU NEUTROPHIL4.2 X10E9/LNormal1.5-6.6ProCentervilleComment on above:Performed By: #### XENIA, 89135-3, , CBCA #### [facility] ([id number]) [address] [place] [place], [place] [address]Dhlpifras/100 WBC (Bld)1.1 %NormalCleveland Clinic [facility]ron General Comment on above:Performed By: #### XENIA, 49450-1, , CBCA #### [facility] ([id number]) [address] [facility] [place], [place] [id number] (Bld) [#/Vol]0.0 10*3/uLNormal0.0-0.4ProCentervilleComment on above:Performed By: #### XENIA, 62959-6, , CBCA #### [facility] ([id number]) [address] [place], [place] [address]Deutqbtlydw/100 WBC (Bld)0.4 %NormalCleveland Clinic Akron General Comment on above:Performed By: #### XENIA, 76790-5, , CBCA #### [facility] ([id number]) [address] [place], [place] [address]Mqtkqvnswvp distribution width (RBC) [Ratio]17.3 %High11.5-15.0 [facility] University Tuberculosis HospitalComment on above:Performed By: #### XENIA, 13546-7, , CBCA #### [facility] ([id number]) [address] [place], [place] [address]Ximgrsrzkp (Bld) [Volume fraction]32.3 %Ihw25-91DzvHnqjlvCentervilleComment on above:Performed By: #### XENIA, 90933-0, , CBCA #### [facility] ([id number]) [address] [place] [place], [place] [address]Fnoffvxbwi (Bld) [Mass/Vol]10.2 g/dLLow11.7-15.5PMercy Health Allen HospitalComment on above:Performed By: #### XENIA, 42602-0, , CBCA #### [facility] ([id number]) [address] [place], [place] [id number] (Bld) [#/Vol]1.7 10*3/uLNormal1.0-3.5PMercy Health Allen HospitalComment on above:Performed By: #### XENIA, 41920-9, , CBCA #### [facility] ([id number]) [address] [place], [place] [id number]/100 WBC (Bld)25.7 %NormalProCenterville Comment on above:Performed By: #### XENIA, 76464-4, , CBCA #### [facility] ([id number]) [address] [place], [place] [address]EKZ (RBC) [Entitic mass]27.3 wpWljxfp94-69WyyVntngiCentervilleComment on above:Performed By: #### CMP, 68282-4, , CBCA #### [facility] ([id number]) [address] [place], [place] [id number] (RBC) [Mass/Vol]31.6 g/zQQxi63-65YfyZhjqzx [facility] Comment on above:Performed By: #### CMP, 78627-2, 92143-6, CBCA #### [facility] ([id number]) [address] [place], [place] [id number] (RBC) [Entitic vol]86 wMLglnbw77-084JzrZmtnrz [facility]park HospitalComment on above:Performed By: #### CMP, 28758-4, 57064-6, CBCA #### [facility] ([id number]) [address] [place] [place], [place] [address]Vsvfinwuv (Bld) [#/Vol]0.6 10*3/uLNormal0-0.9[facility] GeneralComment on above:Performed By: #### CMP, 89177-7, 75006-3, CBCA #### [facility] ([id number]) [address] [place], [place] [address]Cdelxfxzx/100 WBC (Bld)9.2 %[facility] Comment on above:Performed By: #### CMP, 53775-1, 29101-5, CBCA #### [facility] ([id number]) [address] [place] [place], [place] [address]Nvprxnumpej/100 WBC (Bld)63.6 %[facility] Comment on above:Performed By: #### CMP, 68012-9, , CBCA #### [facility] ([id number]) [address] [place], [place] [address]Rqmodkqo mean volume (Bld) [Entitic vol]8.4 fLNormal7-12 ProMedicSelect Medical Specialty Hospital - Cleveland-FairhillComment on above:Performed By: #### CMP, 63903-8, 94396-0, CBCA #### [facility] ([id number]) [address] [place], [place] [address]Ovyoagoen (Bld) [#/Vol]334 10*3/sWDvkcgd741-157LsiMzffsp Baypark HospitalComment on above:Performed By: #### CMP, 32340-7, 73348-0, CBCA #### [facility] ([id number]) [address] [place], [place] [id number] COUNT3.74 X10E12/LLow3.80-5.20ProCenterville Comment on above:Performed By: #### XENIA, 55105-5, 14810-1, CBCA #### [facility] ([id number]) [address] [place], [place] [address]QAM (Bld) [#/Vol]6.7 10*3/uLNormal4.0-11.0ProCentervilleComment on above:Performed By: #### XENIA, 83378-7, , CBCA #### [facility] ([id number]) [address] [place], [place] [address]YCXUTKCEWTRDO METABOLIC PANELon 82-70-3764Snnnqri [Mass/Vol]2.9 g/dLLow3.2-5.3ProMedAkron Children's HospitalComment on above:Performed By: #### XENIA, 22456-6, , CBCA #### [facility] ([id number]) [address] [place], [place] [address]DOE [Catalytic activity/Vol]55 U/ANdmsim08-398BolTvojabCentervilleComment on above:Performed By: #### XENIA, 85992-6, 63048-0, CBCA #### [facility] ([id number]) [address] [place], [place] [address]PZH [Catalytic activity/Vol]33 U/LHigh0-31PMercy Health Allen HospitalComment on above:Performed By: #### CMP, 16868-6, 20408-5, CBCA #### [facility] ([id number]) [address] [place], [place] [address]Uvyuf gap [Moles/Vol]5 mmol/LNormal5-15ProCentervilleComment on above:Performed By: #### CMP, 14527-8, 99222-7, CBCA #### [facility] ([id number]) [address] [place], [place] [address]KCP [Catalytic activity/Vol]21 U/LNormal0-41ProCentervilleComment on above:Performed By: #### XENIA, 13423-8, , CBCA #### [facility] ([id number]) [address] [place], [place] [address]Ioqcahjuc [Mass/Vol]0.6 mg/dLNormal0.3-1.2PMercy Health Allen HospitalComment on above:Performed By: #### XENIA, 28369-6, 12893-5, CBCA #### [facility] ([id number]) [address] [place], [place] [address]Ajfuvvh [Mass/Vol]9.3 mg/dLNormal8.5-10.5PMercy Health Allen HospitalComment on above:Performed By: #### XENIA, 07082-2, , CBCA #### [facility] ([id number]) [address] [place], [place] [address]Wjoougst [Moles/Vol]117 mmol/TUkml39-270InoBxfwmxCentervilleComment on above:Performed By: #### XENIA, 62162-5, , CBCA #### [facility] ([id number]) [address] [place], [place] [address]NG3 [Moles/Vol]20 mmol/TXpz64-87HnoQybhrlMercy Health Allen Hospital Comment on above:Performed By: #### XENIA, 86705-4, , CBCA #### [facility] ([id number]) [address] [place], [place] [address]Wufpaibthc [Mass/Vol]0.59 mg/dLNormal0.40-1.00ProCentervilleComment on above:Result Comment: METHOD TRACEABLE TO IDMS STANDARD Performed By: #### XENIA, 43079-2, , CBCA #### [facility] ([id number]) [address] [place], [place] [address]mHIB (CKD-EPI) NON-RACE DEPENDENT>90Normal>59ProCentervilleComment on above:Result Comment: Reported eGFR is based on the CKD-EPI 2020 equation that does not use a race coefficient.Performed By: #### XENIA, 70494-9, , CBCA #### [facility] ([id number]) [address] [place], [place] [address]Gwtevxg [Mass/Vol]95 mg/dOWnijop96-58ReeHpvtnqCenterville Comment on above:Performed By: #### XENIA, 52964-4, , CBCA #### [facility] ([id number]) [address] [place], [place] [address]Phsrufslj [Moles/Vol]3.4 mmol/LLow3.5-5.0ProCentervilleComment on above:Performed By: #### XENIA, 20373-7, , CBCA #### [facility] ([id number]) [address] [place], [place] [address]Agboyri [Mass/Vol]6.6 g/dLNormal6.0-8.0[facility] GeneralComment on above:Performed By: #### XENIA, 62546-6, , CBCA #### [facility] ([id number]) [address] [place], [place] [address]Wxkylm [Moles/Vol]142 mmol/RTsdetd780-618MmgTddrml [facility] HospitalComment on above:Performed By: #### XENIA, 83079-9, , CBCA #### [facility] ([id number]) [address] [place], [place] [address]Sqdn nitrogen [Mass/Vol]12 mg/dLNormal5-23ProCentervilleComment on above:Performed By: #### XENIA, 12603-6, , CBCA #### [facility] ([id number]) [address] [place], [place] [address]Vgbdvcu Glucometer (BldC) [Mass/Vol]on 50-44-5200Vjokfvw [Mass/Vol]111 mg/sPYxwi10-37KgjBccekcCentervilleGlucose [Mass/Vol]118 mg/kYHrft93-30YhnIwhfpy [facility]park HospitalGlucose [Mass/Vol]225 mg/rEOqll63-30 ProMedicSelect Medical Specialty Hospital - Cleveland-FairhillGlucose [Mass/Vol]105 mg/jRGlew61-47OoiHiinfaCentervilleMAGNESIUMon 16-79-5767Oirunxaxm [Mass/Vol]2.2 mg/dLNormal1.8-2.6 ProMMercy Health Clermont HospitalComment on above:Performed By: #### XENIA, 68187-1, 33710-5, CBCA #### [facility] ([id number]) [address] [place], [place] [id number] 92-39-6569Mnsdpzdvc [Moles/Vol]4.0 mmol/LNormal 3.5-5.0ProCentervilleComment on above:Performed By: #### XENIA, 03282- 0, , CBCA #### [facility] ([id number]) [address] [place], [place] [address]SWMTB METABOLIC PANLon 64-63-0070Hczdc gap [Moles/Vol]6 mmol/L Normal5-15ProCentervilleComment on above:Performed By: #### XENIA, 35198-7, , CBCA #### [facility] ([id number]) [address] [place], [place] [address]Enyoddf [Mass/Vol]9.6 mg/dLNormal8.5-10.5ProMedica University Tuberculosis HospitalComment on above:Performed By: #### XENIA, 10795-7, , CBCA #### [facility] ([id number]) [address] [place], [place] [address]Pfyhwhxg [Moles/Vol]115 mmol/QXeif35-950JclIoupyaCentervilleComment on above:Performed By: #### XENIA, 50792-0, , CBCA #### [facility] ([id number]) [address] [place], [place] [address]CT8 [Moles/Vol]18 mmol/MElv58-13RfsLvlmaaMercy Health Allen Hospital Comment on above:Performed By: #### XENIA, 08048-4, , CBCA #### [facility] ([id number]) [address] [place], [place] [address]Mqmxwttnps [Mass/Vol]0.56 mg/dLNormal0.40-1.00[facility] GeneralComment on above:Result Comment: METHOD TRACEABLE TO IDMS STANDARD Performed By: #### XNEIA, 74718-0, 87220-8, CBCA #### [facility] ([id number]) [address] [place], [place] [address]rGNC (CKD-EPI) NON-RACE DEPENDENT>90Normal>59ProCentervilleComment on above:Result Comment: Reported eGFR is based on the CKD-EPI 2020 equation that does not use a race coefficient.Performed By: #### XENIA, 98219-9, , CBCA #### [facility] ([id number]) [address] [place], [place] [address]Irwynlq [Mass/Vol]86 mg/uOApzubp68-89ImuYddabdCleveland Clinic [facility]ron General Comment on above:Performed By: #### XENIA, 66952-7, , CBCA #### [facility] ([id number]) [address] [place], [place] [address]Lrcyhrjfo [Moles/Vol]3.5 mmol/LNormal3.5-5.0[facility] GeneralComment on above:Performed By: #### XENIA, 81702-5, 27259-0, CBCA #### [facility] ([id number]) [address] [place], [place] [address]Ncsnkf [Moles/Vol]139 mmol/TKjdwuh545-277IklKpzrqc [facility] HospitalComment on above:Performed By: #### XENIA, 09115-0, 88643-0, CBCA #### [facility] ([id number]) [address] [place], [place] [address]Cjro nitrogen [Mass/Vol]14 mg/dLNormal5-23ProCentervilleComment on above:Performed By: #### XENIA, 34005-0, 90447-9, CBCA #### [facility] ([id number]) [address] [place], [place] [address]ITFBRAUB BLOOD COUNTon 57-88-3082Tyfdmgyocxs distribution width (RBC) [Ratio]18.1 %High11.5-15.0ProCentervilleComment on above: Performed By: #### XENIA, 00638-6, , CBCA #### [facility] ([id number]) [address] [place], [place] [address]Qvfxgvkltq (Bld) [Volume fraction]32.2 %Hof84-02NgzNsbrgjCentervilleComment on above:Performed By: #### XENIA, 85054-9, , CBCA #### [facility] ([id number]) [address] [place], [place] [address]Yauziznwkx (Bld) [Mass/Vol]10.1 g/dLLow11.7-15.5PAcadian Medical Centerica University Tuberculosis HospitalComment on above:Performed By: #### XENIA, 87345-6, , CBCA #### [facility] ([id number]) [address] [place], [place] [address]ZDK (RBC) [Entitic mass]27.4 skGilmxd23-66ZbdNwiwjlCentervilleComment on above:Performed By: #### XENIA, 23168-0, 98727-6, CBCA #### [facility] ([id number]) [address] [place], [place] [address]GSHK (RBC) [Mass/Vol]31.5 g/yZUzn86-88EzzGcbnfbCenterville Comment on above:Performed By: #### XENIA, 87278-3, 38420-4, CBCA #### [facility] ([id number]) [address] [place], [place] [address]IYM (RBC) [Entitic vol]87 nSZzagqa72-975DgaYatham [facility] HospitalComment on above:Performed By: #### XENIA, 67872-3, 24313-4, CBCA #### [facility] ([id number]) [address] [place], [place] [address]Ciwnizqe mean volume (Bld) [Entitic vol]8.7 fLNormal7-12 ProMMercy Health Clermont HospitalComment on above:Performed By: #### XENIA, 35664-7, 05018-1, CBCA #### [facility] ([id number]) [address] [place], [place] [address]Osfwvzuuo (Bld) [#/Vol]343 10*3/vESltjtr460-260RvbQuesbh [facility] HospitalComment on above:Performed By: #### XENIA, 56134-7, , CBCA #### [facility] ([id number]) [address] [place], [place] [id number] COUNT3.70 X10E12/LLow3.80-5.20[facility] Comment on above:Performed By: #### XENIA, 16579-2, , CBCA #### [facility] ([id number]) [address] [place], [place] [address]ZTC (Bld) [#/Vol]7.6 10*3/uLNormal4.0-11.0[facility] GeneralComment on above:Performed By: #### XENIA, 31094-4, , CBCA #### [facility] ([id number]) [address] [place], [place] [address]Pvghbxa Glucometer (BldC) [Mass/Vol]on 46-70-3271Fhlwtko [Mass/Vol]160 mg/kVWwlf13-96VncVcppmnCleveland Clinic Akron GeneralGlucose [Mass/Vol]126 mg/cKAnpi58-15QbhWbarnbCleveland Clinic [facility]ron GeneralGlucose [Mass/Vol]128 mg/jMDtbz71-76 ProMMercy Health Clermont HospitalGlucose [Mass/Vol]158 mg/gSDdiz07-03LhkIkekunCentervilleGlucose [Mass/Vol]82 mg/aIBweare41-18UvbOoxnfyCentervilleGlucose [Mass/Vol]93 mg/cKTflubr08-38HveDgsekhCentervilleMAGNESIUMon 04-25-2023 Magnesium [Mass/Vol]2.1 mg/dLNormal1.8-2.6ProCentervilleComment on above:Performed By: #### XENIA, 89781-9, 48027-0, CBCA #### [facility] ([id number]) [address] [place], [place] [id number] 67-24-8839Qrleqkojg [Mass/Vol]3.2 mg/dLNormal 2.4-4.9ProCentervilleComment on above:Performed By: #### XENIA, 98647- 0, , CBCA #### [facility] ([id number]) [address] [place], [place] [address]QPGBIZNLCkv 87-48-9104Gnkjmftoa [Moles/Vol]3.7 mmol/LNormal 3.5-5.0ProCentervilleComment on above:Performed By: #### XENIA, 61583- 0, , CBCA #### [facility] ([id number]) [address] [place], [place] [address]Fezmccwrmq trough [Mass/Vol]on 14-10-0032SFDOPBTXEF BZDQLW26.7 ug/mLHigh5.0-20.0[facility] GeneralComment on above:Performed By: #### XENIA, 90901-0, 51997-6, CBCA #### [facility] ([id number]) [address] [place], [place] [id number] [Mass/Vol]on 45-52-4137GRXWQJXXJNS<0.5Low1.0-13.0 ProMMercy Health Clermont HospitalComment on above:Result Comment: NOTE This test was developed and its performance characteristics determined by [facility] [place] ([facility]). It has not been cleared or approved by the FDA. -[facility] is regulated under CLIA as qualified to perform high-complexity testing. This test is used for clinical purposes. It should not be regarded as investigational or for research. Test Performed By: [place] [address] [employer] Manager: Davian Holloway III, M.D. CLIA #[id number] By: #### XENIA, 87591-7, , CBCA #### [facility] ([id number]) [address] [facility] [place], [place] [address]ZWJZD METABOLIC PANLon 19-53-8090Ngvmn gap [Moles/Vol]9 mmol/L Normal5-15ProCentervilleComment on above:Performed By: #### XENIA, 72929-7, , CBCA #### [facility] ([id number]) [address] [place], [place] [address]Paoshhv [Mass/Vol]9.9 mg/dLNormal8.5-10.5PMercy Health Allen HospitalComment on above:Performed By: #### XENIA, 01447-1, , CBCA #### [facility] ([id number]) [address] [place], [place] [address]Iatgozqs [Moles/Vol]112 mmol/OHxwl64-432IciFhkgxgCentervilleComment on above:Performed By: #### XENIA, 95422-9, , CBCA #### [facility] ([id number]) [address] [place], [place] [address]HU4 [Moles/Vol]17 mmol/MTdu61-01GvzEovkwaMercy Health Allen Hospital Comment on above:Performed By: #### XENIA, 08091-8, 47960-1, CBCA #### [facility] ([id number]) [address] [place], [place] [address]Znroperdsj [Mass/Vol]0.68 mg/dLNormal0.40-1.00ProCentervilleComment on above:Result Comment: METHOD TRACEABLE TO IDMS STANDARD Performed By: #### XENIA, 95509-0, 42659-3, CBCA #### [facility] ([id number]) [address] [place], [place] [address]eVFB (CKD-EPI) NON-RACE DEPENDENT>90Normal>59ProCentervilleComment on above:Result Comment: Reported eGFR is based on the CKD-EPI 2020 equation that does not use a race coefficient.Performed By: #### XENIA, 89196-7, , CBCA #### [facility] ([id number]) [address] [place], [place] [address]Yznopeb [Mass/Vol]134 mg/yPFjoj75-91EwsHiqlmlCleveland Clinic [facility] Comment on above:Performed By: #### XENIA, 07237-6, 76730-2, CBCA #### [facility] ([id number]) [address] [place], [place] [address]Ntwjxoauj [Moles/Vol]4.2 mmol/LNormal3.5-5.0ProCentervilleComment on above:Performed By: #### XENIA, 21815-7, , CBCA #### [facility] ([id number]) [address] [place], [place] [address]Eckrlc [Moles/Vol]138 mmol/FTvkntj382-660UpsUnbouy Baypark HospitalComment on above:Performed By: #### XENIA, 42366-4, , CBCA #### [facility] ([id number]) [address] [place], [place] [address]Bgji nitrogen [Mass/Vol]15 mg/dLNormal5-23ProCentervilleComment on above:Performed By: #### XENIA, 59600-4, , CBCA #### [facility] ([id number]) [address] [place], [place] [address]QPE AND AUTO DIFFon 11-09-1743CFXFGESM BASOPHIL0.1 X10E9/LNormal 0.0-0.2Pro[facility] University Tuberculosis HospitalComment on above:Performed By: #### CMP, 40114- 0, , CBCA #### [facility] ([id number]) [address] [facility] [place], [place] [address]NHHLWUPN NEUTROPHIL5.1 X10E9/LNormal1.5-6.6ProCentervilleComment on above:Performed By: #### CMP, 55584-4, , CBCA #### [facility] ([id number]) [address] [place], [place] [address]Tnqzccfmh/100 WBC (Bld)1.0 %NormalCleveland Clinic Akron General Comment on above:Performed By: #### XENIA, 58158-0, , CBCA #### [facility] ([id number]) [address] [facility] [place], [place] [address]Jirqkbslwov (Bld) [#/Vol]0.0 10*3/uLNormal0.0-0.4ProCentervilleComment on above:Performed By: #### CMP, 75072-4, , CBCA #### [facility] ([id number]) [address] [place], [place] [address]Jpkvvogtnvg/100 WBC (Bld)0.5 %NormalCleveland Clinic [facility]ron General Comment on above:Performed By: #### XENIA, 00667-4, , CBCA #### [facility] ([id number]) [address] [place], [place] [address]Axisqhduyon distribution width (RBC) [Ratio]17.4 %High11.5-15.0 [facility] Tuberculosis HospitalComment on above:Performed By: #### CMP, 45055-1, , CBCA #### [facility] ([id number]) [address] [facility] [place], [place] [address]Nmpqoyhjpg (Bld) [Volume fraction]31.9 %Pdx87-78CfzThqwueCentervilleComment on above:Performed By: #### CMP, 67464-4, , CBCA #### [facility] ([id number]) [address] [place], [place] [address]Wqfeikhsxx (Bld) [Mass/Vol]9.8 g/dLLow11.7-15.5PMercy Health Allen HospitalComment on above:Performed By: #### CMP, 03367-1, 27671-3, CBCA #### [facility] ([id number]) [address] [place], [place] [address]Gaexnnodhgf (Bld) [#/Vol]2.5 10*3/uLNormal1.0-3.5PMercy Health Allen HospitalComment on above:Performed By: #### CMP, 13636-5, , CBCA #### [facility] ([id number]) [address] [place], [place] [address]Vmnpxwzwdbr/100 WBC (Bld)28.0 %NormalCleveland Clinic [facility]ron General Comment on above:Performed By: #### CMP, 62496-0, , CBCA #### [facility] ([id number]) [address] [place], [place] [address]WKS (RBC) [Entitic mass]27.0 brAgdmmb06-76MdoXtrxfbCleveland Clinic Akron GeneralComment on above:Performed By: #### CMP, 32002-6, , CBCA #### [facility] ([id number]) [address] [place], [place] [id number] (RBC) [Mass/Vol]30.8 g/kEVzp24-05VsgRkyaunCleveland Clinic Akron General Comment on above:Performed By: #### CMP, 17689-8, , CBCA #### [facility] ([id number]) [address] [place], [place] [address]WHQ (RBC) [Entitic vol]88 vHIiovhz65-183IzqNfwzmp [facility] HospitalComment on above:Performed By: #### CMP, 64268-7, 93774-8, CBCA #### [facility] ([id number]) [address] [place], [place] [address]Ddsoizxym (Bld) [#/Vol]1.1 10*3/uLHigh0-0.9[facility] GeneralComment on above:Performed By: #### CMP, 61501-6, 94782-6, CBCA #### [facility] ([id number]) [address] [place], [place] [address]Ozjgvtkqz/100 WBC (Bld)12.1 %NormalCleveland Clinic Akron General Comment on above:Performed By: #### CMP, 77387-4, 24433-1, CBCA #### [facility] ([id number]) [address] [place], [place] [address]Swofxpbdqtk/100 WBC (Bld)58.4 %[facility] Comment on above:Performed By: #### CMP, 01382-9, 47741-0, CBCA #### [facility] ([id number]) [address] [place], [place] [address]Dzkaxbud mean volume (Bld) [Entitic vol]7.8 fLNormal7-12 [facility] GeneralComment on above:Performed By: #### CMP, 21221-7, , CBCA #### [facility] ([id number]) [address] [place], [place] [address]Gjttnicdk (Bld) [#/Vol]322 10*3/mUCjkvhy342-130NfwIjxwqn [facility] HospitalComment on above:Performed By: #### CMP, 41150-7, , CBCA #### [facility] ([id number]) [address] [place], [place] [address]JGZ COUNT3.64 X10E12/LLow3.80-5.20[facility] Comment on above:Performed By: #### CMP, 45513-8, 38280-6, CBCA #### [facility] ([id number]) [address] [place], [place] [address]NYW (Bld) [#/Vol]8.8 10*3/uLNormal4.0-11.0ProMetrohealth [facility] HospitalComment on above:Performed By: #### XENIA, 11184-0, , CBCA #### [facility] ([id number]) [address] [place], [place] [address]BXGMNMWVALUJV METABOLIC PANELon 38-73-3812Gokelww [Mass/Vol]2.9 g/dLLow3.2-5.3ProMedFlower Hospital HospitalComment on above:Performed By: #### XENIA, 78809-5, , CBCA #### [facility] ([id number]) [address] [place], [place] [address]ONT [Catalytic activity/Vol]52 U/TMibgam58-659ZjnGlawyxCentervilleComment on above:Performed By: #### XENIA, 69890-5, , CBCA #### [facility] ([id number]) [address] [place], [place] [address]VDL [Catalytic activity/Vol]21 U/LNormal0-31PMercy Health Allen HospitalComment on above:Performed By: #### XENIA, 53712-3, , CBCA #### [facility] ([id number]) [address] [place], [place] [address]Ndolm gap [Moles/Vol]8 mmol/LNormal5-15ProCentervilleComment on above:Performed By: #### XENIA, 16831-3, , CBCA #### [facility] ([id number]) [address] [place], [place] [address]AUR [Catalytic activity/Vol]22 U/LNormal0-41ProMetrohealth [facility] HospitalComment on above:Performed By: #### XENIA, 22291-5, , CBCA #### [facility] ([id number]) [address] [place], [place] [address]Ytdxidcdi [Mass/Vol]0.8 mg/dLNormal0.3-1.2PTriHealth McCull[facility] HospitalComment on above:Performed By: #### CMP, 07658-7, , CBCA #### [facility] ([id number]) [address] [place], [place] [address]Slsrwfa [Mass/Vol]9.4 mg/dLNormal8.5-10.5PMercy Health Allen HospitalComment on above:Performed By: #### CMP, 31752-1, , CBCA #### [facility] ([id number]) [address] [place], [place] [address]Ipkliswx [Moles/Vol]117 mmol/APbqf22-055HwsVfcdlzCentervilleComment on above:Performed By: #### XENIA, 25986-0, , CBCA #### [facility] ([id number]) [address] [place], [place] [address]AG6 [Moles/Vol]18 mmol/ALqi69-60WeoCpcruiMercy Health Allen Hospital Comment on above:Performed By: #### XENIA, 34899-8, , CBCA #### [facility] ([id number]) [address] [place], [place] [address]Jaatylnqvd [Mass/Vol]0.59 mg/dLNormal0.40-1.00ProCentervilleComment on above:Result Comment: METHOD TRACEABLE TO IDMS STANDARD Performed By: #### XENIA, 98991-1, , CBCA #### [facility] ([id number]) [address] [place], [place] [address]Nlnatsa [Mass/Vol]90 mg/mLItndmq57-86MyuInwtdbCleveland Clinic [facility]ron General Comment on above:Performed By: #### [facility], 11307-1, , CBCA #### [facility] ([id number]) [address] [place], [place] [address]Iblpezgss [Moles/Vol]3.6 mmol/LNormal3.5-5.0ProCentervilleComment on above:Performed By: #### XENIA, 83343-3, , CBCA #### [facility] ([id number]) [address] [place], [place] [address]Cmbynzk [Mass/Vol]6.9 g/dLNormal6.0-8.0ProCentervilleComment on above:Performed By: #### XENIA, 80606-8, , CBCA #### [facility] ([id number]) [address] [place], [place] [address]Vwlkoe [Moles/Vol]143 mmol/FZmhmqg284-897AkdJkjxrd [facility] HospitalComment on above:Performed By: #### XENIA, 45240-2, , CBCA #### [facility] ([id number]) [address] [place], [place] [address]Stxvwwj.ionized (Bld) [Moles/Vol]on 48-49-8879HJBBFBDN ICA5.5 mg/dLHigh4.5-5.3ProMedAkron Children's HospitalComment on above:Performed By: #### XENIA, 01610-2, , CBCA #### [facility] ([id number]) [address] [place], [place] [address]Iviyxoo Glucometer (BldC) [Mass/Vol]on 12-09-2382Dxjmrhe [Mass/Vol]87 mg/rJPmamdc62-52VnqDhvcasCentervilleGlucose [Mass/Vol]82 mg/kNRsmxjl71-59HilTodkevCentervilleGlucose [Mass/Vol]90 mg/pXJuzxkf97-69 [facility]erculosis HospitalMAGNESIUMon 26-38-9708Ggerxbghg [Mass/Vol]2.0 mg/dL Normal1.8-2.6ProCentervilleComment on above:Performed By: #### XENIA, 79320-1, , CBCA #### [facility] ([id number]) [address] [place], [place] [address]CBFJPTNLPPsb 99-00-6934Xckwfuedi [Mass/Vol]3.4 mg/dLNormal 2.4-4.9ProMedica [facility]park HospitalComment on above:Performed By: #### XENIA, 20952- 0, , CBCA #### [facility] ([id number]) [address] [place], [place] [address]IZQYJYYAKqi 00-92-9829Bqhcjosqb [Moles/Vol]3.5 mmol/LNormal 3.5-5.0ProMetrohealth [facility] HospitalComment on above:Performed By: #### XENIA, 34431- 0, , CBCA #### [facility] ([id number]) [address] [place], [place] [address]Cvtpatxqr [Moles/Vol]3.7 mmol/LNormal3.5-5.0ProMetrohealth [facility] HospitalComment on above:Performed By: #### XENIA, 41807-9, , CBCA #### [facility] ([id number]) [address] [place], [place] [address]LOSGLPSQ BLOOD GASon 97-16-1810POFTB'S TESTPassNormalProMetrohealth [facility] HospitalComment on above:Performed By: #### ABG ####[facility] ([id number])[address] [place], [place] [address]MNSC,DEFICIT4.0 MMOL/LHigh 0.0-2.0ProMetrohealth [facility] HospitalComment on above:Performed By: #### ABG ####[facility] ([id number])[address] [place], [place] [address]Anaa hdwsxoigmia29.6 [degF]Gdgwis58.0ProMetrohealth [facility] HospitalComment on above: Performed By: #### ABG ####[facility] ([id number])[address] [place], [place] [address]VCJ1 (Bld) [Moles/Vol]21.0 mmol/ILqk52-65XbqIbyumy [facility] HospitalComment on above:Performed By: #### ABG ####[facility] ([id number])[address] [place], [place] [address]MPHH. O2 CONC.40 %NormalProMedica Baypark HospitalComment on above:Performed By: #### ABG ####[facility] ([id number])[address] [place], [place] [address]Risdaw (Bld) [Partial pressure]76 mm[Hg]Uqr93-401JahDakgdbCentervilleComment on above:Performed By: #### ABG ####[facility] ([id number])[address] [place], [place] [address]Uzmhuj saturation in Blood95.0 %Normal>90ProCenterville Comment on above:Performed By: #### ABG ####[facility] ([id number])[address] [place] [address]WFLXLE SOURCEVentNormMercy Health – The Jewish HospitalComment on above:Performed By: #### ABG ####[facility] ([id number])[address] [place] [address]OIK659.0 CECRXpsnxq03-47 [facility] HospitalComment on above:Performed By: #### ABG ####[facility] ([id number])[address] [place], [place] [address]tU (Bld)7.362 [pH]Normal7.350-7.450ProCentervilleComment on above:Performed By: #### ABG ####[facility] ([id number])[address] [place] [address]GEHXJF SITERBrachNormMercy Health – The Jewish HospitalComment on above:Performed By: #### ABG ####[facility] ([id number])[address] [place] [address]EZYQIB TYPEARTERIALNormalCleveland Clinic Akron GeneralComment on above:Performed By: #### ABG ####[facility] ([id number])[address] [place] [address]HAUPO CULTUREon 66-49-9524Gbcqhbbo identified Aer cx Nom (Bld)CULTURE RESULTS NO GROWTH 5 DAYSNormalCleveland Clinic Akron GeneralBacteria identified Aer cx Nom (Bld)CULTURE RESULTS NO GROWTH 5 DAYSNormalProCentervilleCBC AND AUTO DIFFon 04-23-2023 ABSOLUTE BASOPHIL0.0 X10E9/LNormal0.0-0.2ProMedAkron Children's HospitalComment on above:Performed By: #### 88236-2, , 1987-08, 2275-07, CMP, CBCA ####[facility] ([id number])[address] [place], [place] [address]ZGVYMVFZ NEUTROPHIL4.8 X10E9/LNormal1.5-6.6ProCentervilleComment on above: Performed By: #### 19892-7, , 1987-08, 2275-07, CMP, CBCA ####[facility] ([id number])[address] [place], [place] [address]Zkkkrhqgw/100 WBC (Bld)0.5 %NormalProCentervilleComment on above:Performed By: #### 49027-3, , 1987-08, 2275-07, CMP, CBCA ####[facility] ([id number])[address] [place], [place] [address]Bihrkcnlmbn (Bld) [#/Vol]0.1 10*3/uL Normal0.0-0.4[facility] GeneralComment on above:Performed By: #### 59490-4, , 1987-08, 2275-07, CMP, CBCA ####[facility] ([id number])[address] [place], [place] [address]Slqpwullgei/100 WBC (Bld)0.8 %Normal ProMMercy Health Clermont HospitalComment on above:Performed By: #### 85774-2, , 1987-08, 2275-07, CMP, CBCA ####[facility] ([id number])[address] [place], [place] [address]Cyjrvdhjljk distribution width (RBC) [Ratio]19.7 %High 11.5-15.0ProCentervilleComment on above:Performed By: #### 91361-5, , 1987-08, 2275-07, CMP, CBCA ####[facility] ([facility] 06273)[address] [place], [place] [address]Dskyllsrsg (Bld) [Volume fraction]32.6 % Vef45-85NnzBmeapd University Tuberculosis HospitalComment on above:Performed By: #### 60686-3, , 1987-08, 2275-07, CMP, CBCA ####[facility] ([facility] 17026)[address] [place], [place] [address]Stfepplvqq (Bld) [Mass/Vol]10.4 g/dLLow 11.7-15.5ProMedAkron Children's HospitalComment on above:Performed By: #### 09380-8, , 1987-08, 2275-07, CMP, CBCA ####[facility] ([facility] 79428)[address] [place], [place] [address]Reqppheoaxl (Bld) [#/Vol]1.5 10*3/uLNormal 1.0-3.5PMercy Health Allen HospitalComment on above:Performed By: #### 80673-3, , 1987-08, 2275-07, CMP, CBCA ####[facility] ([facility] 41543)[address] [place], [place] [address]Spwxlwkzfqs/100 WBC (Bld)20.9 %Normal [facility] HospitalComment on above:Performed By: #### 69647-3, , 1987-08, 2275-07, CMP, CBCA ####[facility] ([id number])[address] [place], [place] [address]ZJT (RBC) [Entitic mass]27.2 lrLnickx69-56ZigUadvidCentervilleComment on above:Performed By: #### 59420-4, , 1987-08, 2275-07, CMP, CBCA ####[facility] ([id number])[address] [place], [place] [address]KCZQ (RBC) [Mass/Vol]31.7 g/lNHeb07-27TxsGnincb [facility] HospitalComment on above:Performed By: #### 00597-2, , 1987-08, 2275-07, CMP, CBCA ####[facility] ([id number])[address] [place], [place] [address]JKK (RBC) [Entitic vol]86 qORkkumk99-580EiiZapmwh [facility] HospitalComment on above:Performed By: #### 94027-9, , 1987-08, 2275-07, CMP, CBCA ####[facility] ([id number])[address] [place], [place] [address]Zacwpysgm (Bld) [#/Vol]0.7 10*3/uLNormal0-0.9ProCentervilleComment on above: Performed By: #### 90880-5, , 1987-08, 2275-07, CMP, CBCA ####[facility] ([id number])[address] [place], [place] [address]Ggahwoqes/100 WBC (Bld)10.2 %NormalProMetrohealth [facility] HospitalComment on above:Performed By: #### 41588-9, , 1987-08, 2275-07, CMP, CBCA ####[facility] ([id number])[address] [place], [place] [address]Ieogbljcqsa/100 WBC (Bld)67.6 % NormalProMetrohealth [facility] HospitalComment on above:Performed By: #### 60967-7, 0, 1987-08, 2275-07, CMP, CBCA ####[facility] ([id number])[address] [place], [place] [address]Spsawdvq mean volume (Bld) [Entitic vol] 8.1 fLNormal7-12[facility] HospitalComment on above:Performed By: #### 63584-4, , 1987-08, 2275-07, CMP, CBCA ####[facility] ([id number])[address] [place], [place] [address]Sojbvzspj (Bld) [#/Vol]362 10*3/uL Zixtsd622-992NfjHovvrqCentervilleComment on above:Performed By: #### 70128-5, , 1987-08, 2275-07, CMP, CBCA ####[facility] ([id number])[address] [place], [place] [address]LKO COUNT3.81 X10E12/LNormal 3.80-5.20ProCentervilleComment on above:Performed By: #### 81179-3, , 1987-08, 2275-07, CMP, CBCA ####[facility] ([id number])[address] [place], [place] [address]LNP morphology finding Nom (Bld)NORMAL NormalProCentervilleComment on above:Performed By: #### 88930-4, , 1987-08, 2275-07, CMP, CBCA ####[facility] ([id number])[address] [place], [place] [address]RWK (Bld) [#/Vol]7.1 10*3/uLNormal4.0-11.0 [facility] HospitalComment on above:Performed By: #### 10237-8, , 1987-08, 2275-07, CMP, CBCA ####[facility] ([id number])[address] [place], [place] [address]GEQLXKMVSALYE METABOLIC PANELon 47-87-7699Qkbkdih [Mass/Vol]3.0 g/dLLow3.2-5.3Pro[facility]erculosis HospitalComment on above:Performed By: #### 61516-4, , 1987-08, 2275-07, CMP, CBCA ####[facility] ([id number])[address] [place], [place] [address]SKK [Catalytic activity/Vol]62 U/WKjqrln29-785JbjTgtdtgCentervilleComment on above: Performed By: #### 85999-4, 0, 1987-08, 2275-07, CMP, CBCA ####[facility] ([id number])[address] [facility] [place], [place] [address]VQU [Catalytic activity/Vol]18 U/LNormal0-31ProMedAkron Children's HospitalComment on above: Performed By: #### 67699-1, , 1987-08, 2275-07, CMP, CBCA ####[facility] ([id number])[address] [place], [place] [address]Rabpa gap [Moles/Vol]5 mmol/LNormal5-15ProCentervilleComment on above: Performed By: #### 60172-7, , 1987-08, 2275-07, CMP, CBCA ####[facility] ([id number])[address] [facility] [place], [place] [address]IDW [Catalytic activity/Vol]18 U/LNormal0-41ProCentervilleComment on above: Performed By: #### 74503-5, , 1987-08, 2275-07, CMP, CBCA ####[facility] ([id number])[address] [place], [place] [address]Mjatflsrl [Mass/Vol]0.6 mg/dLNormal0.3-1.2PTriHealth McCull[facility] HospitalComment on above: Performed By: #### 76105-3, , 1987-08, 2275-07, CMP, CBCA ####[facility] ([id number])[address] [place], [place] [address]Aqqumzw [Mass/Vol]9.8 mg/dLNormal8.5-10.5PTriHealth McCullough-Hy[facility] HospitalComment on above: Performed By: #### 77712-0, 0, 1987-08, 2275-07, CMP, CBCA ####[facility] ([id number])[address] [place], [place] [address]Vgcsxcih [Moles/Vol]118 mmol/TDqgf86-467CcyXnhejeCentervilleComment on above: Performed By: #### 78753-0, , 1987-08, 2275-07, XENIA, CBCA ####[facility] ([id number])[address] [place], [place] [address]CG4 [Moles/Vol]23 mmol/EMezili10-26PptSaatio [facility] HospitalComment on above:Performed By: #### 72999-6, , 1987-08, 2275-07, XENIA, CBCA ####[facility] ([id number])[address] [place], [place] [address]Qiojhcxeus [Mass/Vol]0.69 mg/dL Normal0.40-1.00ProCentervilleComment on above:Result Comment: METHOD TRACEABLE TO IDMS STANDARDPerformed By: #### 31060-9, , 1987-08, 2275-07, XENIA, CBCMindi ####[facility] ([id number])[address] [place], [place] [address]tDXD (CKD-EPI) NON-RACE DEPENDENT>90Normal>59[facility] Comment on above:Result Comment: Reported eGFR is based on the CKD-EPI 2020 equation that does not use a race coefficient.Performed By: #### 39641-9, , 1987-08, 2275-07, XENIA, ANNA ####[facility] ([id number])[address] [place], [place] [address]Boucaho [Mass/Vol]134 mg/sNGegn17-53LmaNfnxmlCentervilleComment on above:Performed By: #### 46015-5, , 1987-08, 2275-07, XENIA, CBCA ####[facility] ([id number])[address] [place], [place] [address]Juxlmsaig [Moles/Vol]3.4 mmol/LLow3.5-5.0ProCentervilleComment on above: Performed By: #### 82436-7, , 1987-08, 2275-07, CMP, CBCA ####[facility] ([id number])[address] [facility] [place], [place] [address]Heiphej [Mass/Vol]7.4 g/dLNormal6.0-8.0ProCentervilleComment on above: Performed By: #### 51897-6, , 1987-08, 2275-07, CMP, CBCA ####[facility] ([id number])[address] [place], [place] [address]Qsnyqs [Moles/Vol]146 mmol/YAtsuap147-600BobVtmmqy [facility] HospitalComment on above: Performed By: #### 35634-6, , 1987-08, 2275-07, CMP, CBCA ####[facility] ([id number])[address] [facility] [place], [place] [address]Nrga nitrogen [Mass/Vol]20 mg/dLNormal5-23ProCentervilleComment on above:Performed By: #### 72465-2, , 1987-08, 2275-07, CMP, CBCA ####[facility] ([id number])[address] [facility] [place], [place] [address]PWA [Mass/Vol]on 04-23-2023 C REACTIVE PROTEIN3.4 mg/dLHigh0.000-0.744PMercy Health Allen HospitalComment on above:Performed By: #### 24444-2, , 1987-08, 2275-07, CMP, CBCA ####[facility] ([id number])[address] [facility] [place], [place] [address]KTENELDDur 34-61-6139Wvsspmjz [Mass/Vol]41 ng/mMTbmdxy80-867NssOyagxn [facility] Comment on above:Performed By: #### 02128-2, 0, 1987-08, 2275-07, CMP, CBCA ####[facility] ([id number])[address] [place] [address] Fibrin D-dimer DDU (PPP) [Mass/Vol]on 3D NFTPC724 ng/mL DDUHigh<255 [facility] GeneralComment on above:Result Comment: Results >=255ng/mL DDU: Results may be indicative of the presence of VTE. The use of the Wells score and further diagnostic tests should be considered. Elevated D-Dimer levels can also be associated with DIC, neoplasm, , trauma and liver disease. Elevated levels of rheumatoid factor may lead to an overestimation of the D-Dimer level.Performed By: #### 64620-4, , 1987-08, 2275-07, CMP, CBCA ####[facility] ([id number])[address] [place], [place] [address]Jkqubgw Glucometer (BldC) [Mass/Vol]on 22-83-9268Kcwxunb [Mass/Vol]129 mg/eWNmnq76-82HygJrssue [facility] HospitalGlucose [Mass/Vol]96 mg/dL Ksyabw58-90FowZwmpsrCentervilleGlucose [Mass/Vol]136 mg/wSYycu65-79 ProMMercy Health Clermont HospitalGlucose [Mass/Vol]127 mg/qFGgej00-11WmaLwwlff [facility] HospitalGlucose [Mass/Vol]115 mg/cUWyyn99-33MitQwjlmpCleveland Clinic Akron GeneralLDH [Catalytic activity/Vol]on 64-70-0959YHU786 U/UZmyhjc961-006IwxVjcbbxCleveland Clinic Akron GeneralComment on above:Performed By: #### 40950-5, , 1987-08, 2275-07, CMP, CBCA ####[facility] ([id number])[address] [place], [place] [address]JFEIV RESPIRATORY CULTUREon 44-85-8310Ndtslevu identified Respiratory culture Nom (Sput)GRAM STAIN 10 [...] PIPERACIL/TAZOBACTAM S 16 F TOBRAMYCIN S <=1 FSusceptibleProCentervilleComment on above: Performed By: #### XENIA, 02810-0, 04928-8, CBCA #### [facility] ([id number]) [address] [facility] [place], [place] [address]XGHFOCWXXoo 27-43-7427Uwufjvkan [Moles/Vol]3.7 mmol/LNormal 3.5-5.0ProCentervilleComment on above:Performed By: #### XENIA, 99571- 0, 81574-0, CBCA #### [facility] ([id number]) [address] [place], [place] [address]PH CHEST 1 VWon [id number] CHEST 1 VWXR CHEST 1 VW Single [...] by Alli Bateman MD on 04/23/2023 6:11 AMNormalProGeorgetown Behavioral Hospital AND AUTO DIFFon 25-59-1207Piawkpivfgf (Bld) [#/Vol]0.1 10*3/uLNormal 0.0-0.4[facility] GeneralComment on above:Performed By: #### 624-7 #### [facility] ([id number]) [address], [address] [place], [place] [address]Jpedhlrdzeb/100 WBC (Bld)1.0 %[facility] Comment on above:Performed By: #### 624-7 #### [facility] ([id number]) [address], [address] [place], [place] [address]Sksifafzibr distribution width (RBC) [Ratio]20.5 %High11.5-15.0 [facility]icDes[facility] HospitalComment on above:Performed By: #### 624-7 #### [facility] ([id number]) [address], [address] [place], [place] [address]Hbzqbqaylv (Bld) [Volume fraction]34.1 %Env09-00OcoEqjktfCleveland Clinic Akron GeneralComment on above:Performed By: #### 624-7 #### [facility] ([id number]) [address], [address] [place], [place] [address]Irtzdfqkyk (Bld) [Mass/Vol]10.8 g/dLLow11.7-15.5PMercy Health Allen HospitalComment on above:Performed By: #### 624-7 #### [facility] ([id number]) [address], [address] [place], [place] [address]HUSQMBVUOV, ATYPICAL2.0 %NormalCleveland Clinic Akron GeneralComment on above:Performed By: #### 624-7 #### [facility] ([id number]) [address], [address] [place], [place] [address]Qiqiuioiahu (Bld) [#/Vol]2.0 10*3/uLNormal1.0-3.5PMercy Health Allen HospitalComment on above:Performed By: #### 624-7 #### [facility] ([id number]) [address], [address] [place], [place] [address]Verrdbqlwxp/100 WBC (Bld)26.5 %NormalCleveland Clinic Akron General Comment on above:Performed By: #### 624-7 #### [facility] ([id number]) [address], [address] [place], [place] [address]WVC (RBC) [Entitic mass]26.9 buXti60-84UveMnxjhwCleveland Clinic Akron GeneralComment on above:Performed By: #### 624-7 #### [facility] ([id number]) [address], [address] [place], [place] [address]YBKA (RBC) [Mass/Vol]31.6 g/qOSxp83-39AduDbfzbbCleveland Clinic [facility] General Comment on above:Performed By: #### 624-7 #### [facility] ([id number]) [address], [address] [place], [place] [address]IGQ (RBC) [Entitic vol]85 qRTfywld37-994WvlIqhovkCleveland Clinic Akron GeneralComment on above:Performed By: #### 624-7 #### [facility] ([id number]) [address], [address] [place], [place] [address]Bbugktmud (Bld) [#/Vol]0.9 10*3/uLNormal0-0.9[facility] GeneralComment on above:Performed By: #### 624-7 #### [facility] ([id number]) [address], [address] [place], [place] [address]Ocsrhcfzt/100 WBC (Bld)12.7 %NormalCleveland Clinic Akron General Comment on above:Performed By: #### 624-7 #### [facility] ([id number]) [address], [address] [place], [place] [address]Nxgebgfyiuy (Bld) [#/Vol]4.2 10*3/uLNormal1.5-6.6[facility] GeneralComment on above:Performed By: #### 624-7 #### [facility] ([id number]) [address], [address] [place], [place] [address]XKQUPBEZS RBC1.0 /100 WBCNormal0.0-1.0[facility] Comment on above:Performed By: #### 624-7 #### [facility] ([id number]) [address], [address] [place], [place] [address]Ogrzkujk mean volume (Bld) [Entitic vol]7.8 fLNormal7-12 ProMAdams County Hospital HospitalComment on above:Performed By: #### 624-7 #### [facility] ([id number]) [address], [address] [place], [place] [address]Dlmtqnljg (Bld) [#/Vol]370 10*3/iWAfudjx313-181IrfVmxgdt Baypark HospitalComment on above:Performed By: #### 624-7 #### [facility] ([id number]) [address], [address] [place], [place] [address]ANXHKLHYTJLMD6+AbnormalNONEProMedica University Tuberculosis HospitalComment on above:Performed By: #### 624-7 #### [facility] ([id number]) [address], [address] [place], [place] [address]TFJ COUNT4.00 X10E12/LNormal3.80-5.20[facility] Comment on above:Performed By: #### 624-7 #### [facility] ([id number]) [address], [address] [place], [place] [address]PEY TQBTGGHTUM19.8 %NormalProMetrohealth [facility] HospitalComment on above:Performed By: #### 624-7 #### [facility] ([id number]) [address], [address] [place], [place] [address]GXM (Bld) [#/Vol]7.3 10*3/uLNormal4.0-11.0Pro[facility] HospitalComment on above:Performed By: #### 624-7 #### [facility] ([id number]) [address], [address] [place], [place] [address]NTUFORMXLGPWM METABOLIC PANELon 67-49-2501Sbzwlek [Mass/Vol]3.0 g/dLLow3.2-5.3PTriHealth [facility] HospitalComment on above:Performed By: #### 624- 7 #### [facility] ([id number]) [address], [address] [place], [place] [address]HFD [Catalytic activity/Vol]68 U/YZulnww34-708NhsMdltff [facility] HospitalComment on above:Performed By: #### 624-7 #### [facility] ([id number]) [address], [address] [place], [place] [address]TEN [Catalytic activity/Vol]16 U/LNormal0-31PTriHealth [facility] HospitalComment on above:Performed By: #### 624-7 #### [facility] ([id number]) [address], [address] [place], [place] [address]Owkhw gap [Moles/Vol]11 mmol/LNormal5-15[facility] HospitalComment on above:Performed By: #### 624-7 #### [facility] ([id number]) [address], [address] [place], [place] [address]TGK [Catalytic activity/Vol]18 U/LNormal0-41[facility] HospitalComment on above:Performed By: #### 624-7 #### [facility] ([id number]) [address], [address] [place], [place] [address]Usamfavqj [Mass/Vol]0.5 mg/dLNormal0.3-1.2PTriHealth [facility] HospitalComment on above:Performed By: #### 624-7 #### [facility] ([id number]) [address], [address] [place], [place] [address]Lgooayc [Mass/Vol]9.5 mg/dLNormal8.5-10.5PMercy Health Allen HospitalComment on above:Performed By: #### 624-7 #### [facility] ([id number]) [address], [address] [place] [id number] [Moles/Vol]113 mmol/SMqjr76-879TknPgzfepCentervilleComment on above:Performed By: #### 624-7 #### [facility] ([id number]) [address], [address] [place], [place] [address]NR8 [Moles/Vol]22 mmol/GHvqdtz43-33QlsBpvbqpMercy Health Allen Hospital Comment on above:Performed By: #### 624-7 #### [facility] ([id number]) [address] [address] [place], [place] [address]Idqsfntvom [Mass/Vol]0.85 mg/dLNormal0.40-1.00[facility] GeneralComment on above:Result Comment: METHOD TRACEABLE TO IDMS STANDARD Performed By: #### 624-7 #### [facility] ([id number]) [address] [address] [place] [id number]/1.73 sq M.predicted among non-blacks MDRD (S/P/Bld) [Vol rate/Area]78 mL/min/{1.73_m2}Normal>59ProCentervilleComment on above:Result Comment: Reported eGFR is based on the CKD-EPI 2021 equation that does not use a race coefficient.Performed By: #### 624-7 #### [facility] ([id number]) [address], [address] [place], [place] [address]Ohrissc [Mass/Vol]107 mg/eHDqtl89-93QziKsgrmrCleveland Clinic [facility] General Comment on above:Performed By: #### 624-7 #### [facility] ([id number]) [address], [address] [place], [place] [address]Pbvyuqlle [Moles/Vol]3.3 mmol/LLow3.5-5.0[facility] HospitalComment on above:Performed By: #### 624-7 #### [facility] ([id number]) [address], [address] [place], [place] [address]Miynfjk [Mass/Vol]7.6 g/dLNormal6.0-8.0[facility] HospitalComment on above:Performed By: #### 624-7 #### [facility] ([id number]) [address], [address] [place], [place] [address]Tjmzvw [Moles/Vol]146 mmol/VEupeio821-735YqaQyuuty [facility] HospitalComment on above:Performed By: #### 624-7 #### [facility] ([id number]) [address], [address] [place], [place] [address]Edov nitrogen [Mass/Vol]22 mg/dLNormal5-23Pro[facility] HospitalComment on above:Performed By: #### 624-7 #### [facility] ([id number]) [address], [address] [place], [place] [address]Aucobmb Glucometer (BldC) [Mass/Vol]on 30-74-2044Gmktxpv [Mass/Vol]149 mg/cVTqnq76-86ChnGeqipf [facility] HospitalGlucose [Mass/Vol]126 mg/nFWfdz51-89MpiLikhbp [facility] HospitalGlucose [Mass/Vol]109 mg/mSEcwd92-00 ProMAdams County Hospital HospitalGlucose [Mass/Vol]103 mg/zIXsna50-35DfgKdadpeCentervillePOTASSIUMon 42-48-3989Rrxdbiblz [Moles/Vol]3.8 mmol/LNormal3.5-5.0 [facility] HospitalComment on above:Performed By: #### 624-7 #### [facility] ([id number]) [address], [address] [place], [place] [address]Hckkhhroy [Moles/Vol]3.3 mmol/LLow3.5-5.0[facility] GeneralComment on above:Performed By: #### 624-7 #### [facility] ([id number]) [address], [address] [place], [place] [address]XNACOYPZAOQBkm 22-64-8378Xlyfojithtts [Mass/Vol]510 mg/dLHigh 27-150ProCentervilleComment on above:Performed By: #### 624-7 #### [facility] ([id number]) [address], [address] [place], [place] [address]BA CHEST 1 VWon 18-74-6073YN CHEST 1 VWXR CHEST 1 VW Single [...] Victor Hugo Gustafson MD on 04/22/2023 6:14 AMNormalProCentervilleCB AND AUTO DIFFon 22-55-3114MYFOYBCP BASOPHIL0.0 X10E9/LNormal0.0-0.2 [facility] HospitalComment on above:Performed By: #### 2571-8 ####[facility] ([id number])[address], [address], [place] [address]#### CMP, CBCA ####[facility] ([id number])[address] [place], [place] [address]LMKMYVBL NEUTROPHIL4.3 X10E9/LNormal1.5-6.6[facility] Comment on above:Performed By: #### 2571-8 ####[facility] ([id number])0 [facility], [address] [place] [address]#### CMP, CBCA ####[facility] ([id number])[address] [place], [place] [address]Ylmybddfk/100 WBC (Bld)0.4 %NormalProCentervilleComment on above:Performed By: #### 2571-8 ####[facility] ([id number])[address] [facility] [address] [place] [address]#### CMP, CBCA ####[facility] ([id number])[address] [place], [place] [address]Gwdauxgmvym (Bld) [#/Vol]0.1 10*3/uL Normal0.0-0.4ProCentervilleComment on above:Performed By: #### 2571- 8 ####[facility] ([id number])0 [facility], [address] [place] [address]#### CMP, CBCA ####[facility] ([id number])[address] [place], [place] [address]Jejiajcjwgn/100 WBC (Bld)1.2 %NormalProCentervilleComment on above:Performed By: #### 2571-8 ####[facility] ([id number])[address] [facility] [address] [place] [address]#### CMP, CBCA ####[facility] ([id number])[address] [place], [place] [address]Vgpyqdmhcgw distribution width (RBC) [Ratio]20.6 %High11.5-15.0[facility] Comment on above:Performed By: #### 2571-8 ####[facility] ([id number])[address], [address], [place] [address]#### CMP, CBCA ####[facility] ([id number])[address] [place], [place] [address]Iofimhmrzm (Bld) [Volume fraction]31.6 %Wbh95-41LpgElffqd [facility] HospitalComment on above: Performed By: #### 2571-8 ####[facility] ([id number])[address] [facility] [address], [place] [address]#### CMP, CBCA ####[facility] ([id number])[address] [place], [place] [address]Enkskjrhqx (Bld) [Mass/Vol] 10.1 g/dLLow11.7-15.5ProMedAkron Children's HospitalComment on above:Performed By: #### 2571-8 ####[facility] ([id number])[address] [facility] [address], [place] [address]#### CMP, CBCA ####[facility] ([id number])[address] [place], [place] [address]Uyuhuszutwj (Bld) [#/Vol]1.3 10*3/uL Normal1.0-3.5PMercy Health Allen HospitalComment on above:Performed By: #### 2571- 8 ####[facility] ([id number])[address], [address], [place] [address]#### CMP, CBCA ####[facility] ([id number])[address] [place], [place] [address]Nkhfxtblkna/100 WBC (Bld)21.1 %NormalProCentervilleComment on above:Performed By: #### 2571-8 ####[facility] ([id number])[address] [address], [place] [address]#### CMP, CBCA ####[facility] ([id number])[address] [place], [place] [address]ZOX (RBC) [Entitic mass]27.2 qxRqgcet16-42ChdUnobpd [facility] HospitalComment on above: Performed By: #### 2571-8 ####[facility] ([id number])[address], [address] [place] [address]#### CMP, CBCA ####[facility] ([id number])[address] [place], [place] [address]PJUG (RBC) [Mass/Vol]32.1 g/bXWdsyhv99-62BylRoxtao [facility] HospitalComment on above:Performed By: #### 2571-8 ####[facility] ([id number])[address] [facility] [address] [place] [address]#### CMP, CBCA ####[facility] ([id number])[address] [place], [place] [address]EWE (RBC) [Entitic vol]85 fLNormal 80-100Pro[facility]ica [facility] HospitalComment on above:Performed By: #### 2571-8 ####[facility] ([id number])[address] [facility] [address] [place] [address]#### CMP, CBCA ####[facility] ([id number])[address] [place], [place] [address]Flkfggeaa (Bld) [#/Vol]0.5 10*3/uLNormal0-0.9[facility]ica [facility] HospitalComment on above:Performed By: #### 2571-8 ####[facility] ([id number])[address] [address] [place] [address]#### CMP, CBCA ####[facility] ([id number])[address] [place] [address] Monocytes/100 WBC (Bld)8.3 %NormalProAultman Orrville Hospitalca [facility] HospitalComment on above: Performed By: #### 2571-8 ####[facility] ([id number])[address], [address] [address]#### CMP, CBCA ####[facility] ([id number])[address] [facility], [place] [address]Zmkoljeggcg/100 WBC (Bld) 69.0 %NormalProCentervilleComment on above:Performed By: #### 2571-8 ####[facility] ([id number])[address], [address] [address]#### CMP, CBCA ####[facility] ([id number])[address] [facility] [place], [place] [address]Fplnewwb mean volume (Bld) [Entitic vol]7.7 fLNormal7-12 [facility] HospitalComment on above:Performed By: #### 2571-8 ####[facility] ([id number])[address], [address] [address]#### CMP, CBCA ####[facility] ([id number])[address] [facility] [place] [address]Ffpvtvvrc (Bld) [#/Vol]349 10*3/wGGnbjsv710-084EucDjokwuCleveland Clinic [facility] General Comment on above:Performed By: #### 2571-8 ####[facility] ([id number])[address], [address], [place] [address]#### CMP, CBCA ####[facility] ([id number])2801 [facility] [place], [place] [address]LBT COUNT3.73 X10E12/LLow3.80-5.20ProCentervilleComment on above:Performed By: #### 2571-8 ####[facility] ([id number])[address], [address], [place] [address]#### CMP, CBCA ####[facility] ([id number])[address] [place], [place] [address]VCY morphology finding Nom (Bld) REVIEWEDNormalProMedica University Tuberculosis HospitalComment on above:Performed By: #### 2571-8 ####[facility] ([id number])[address], [address] [place] [address]#### CMP, CBCA ####[facility] ([id number])[address] [place], [place] [address]QFQ (Bld) [#/Vol]6.2 10*3/uLNormal 4.0-11.0[facility] HospitalComment on above:Performed By: #### 2571-8 ####[facility] ([id number])0 [facility], [address] [place] [address]#### CMP, CBCA ####[facility] ([id number])[address] [place], [place] [address]PNQZYZNAEQGNZ METABOLIC PANELon 98-51-1153Dpbfens [Mass/Vol] 2.7 g/dLLow3.2-5.3[facility] HospitalComment on above:Performed By: #### 2571-8 ####[facility] ([id number])[address], [address] [place] [address]#### CMP, CBCA ####[facility] ([id number])[address] [place], [place] [address]TYL [Catalytic activity/Vol]63 U/L Ldckof98-274RodNcyityCentervilleComment on above:Performed By: #### 2571-8 ####[facility] ([id number])[address], [place] [address]#### CMP, CBCA ####[facility] ([id number])[address] [place], [place] [address]ZDN [Catalytic activity/Vol]14 U/LNormal0-31[facility] HospitalComment on above:Performed By: #### 2571-8 ####[facility] ([id number])[address] [address]#### CMP, CBCA ####[facility] ([id number])[address] [facility] [place], [place] [address]Fgfhf gap [Moles/Vol]7 mmol/LNormal5-15[facility] HospitalComment on above: Performed By: #### 2571-8 ####[facility] ([id number])[address] [facility], [address] [address]#### CMP, CBCA ####[facility] ([id number])[address] [facility] [place], [place] [address]SKR [Catalytic activity/Vol]16 U/LNormal0-41[facility] HospitalComment on above: Performed By: #### 2571-8 ####[facility] ([id number])[address] [facility], [address] [address]#### CMP, CBCA ####[facility] ([id number])[address] [facility] [place], [place] [address]Ydwivjqvm [Mass/Vol]0.7 mg/dLNormal0.3-1.2[facility] HospitalComment on above:Performed By: #### 2571-8 ####[facility] ([id number])[address], [address] [address]#### CMP, CBCA ####[facility] ([id number])[address] [facility] [place], [place] [address]Uavqwpm [Mass/Vol]8.2 mg/dLLow 8.5-10.5[facility] HospitalComment on above:Performed By: #### 2571-8 ####[facility] ([id number])[address] [address]#### CMP, CBCA ####[facility] ([id number])[address] [place], [place] [address]Hpjdttyq [Moles/Vol]115 mmol/JRqvb57-816CthOkllzuCentervilleComment on above:Performed By: #### 2571-8 ####[facility] ([id number])[address] [facility], [address], [place] [address]#### CMP, CBCA ####[facility] ([id number])[address] [place], [place] [address]WC1 [Moles/Vol]23 mmol/QByzlxm66-64GhyRjqbdm University Tuberculosis HospitalComment on above: Performed By: #### 2571-8 ####[facility] ([id number])[address] [place] [address] [place] [address]#### CMP, CBCA ####[facility] ([id number])[address] [place] [address]Gbjzcatcwk [Mass/Vol]0.77 mg/dLNormal0.40-1.00ProCentervilleComment on above:Result Comment: METHOD TRACEABLE TO IDMS STANDARDPerformed By: #### 2571-8 ####[facility] ([id number])[address] [place] [address], [address] [place] [address]#### CMP, CBCA ####[facility] ([id number])[address] [place] [address] GFR/1.73 sq M.predicted among non-blacks MDRD (S/P/Bld) [Vol rate/Area]88 mL/min/{1.73_m2}Normal>59ProCentervilleComment on above:Result Comment: Reported eGFR is based on the CKD-EPI 2020 equation that does not use a race coefficient.Performed By: #### 2571-8 ####[facility] ([id number])[address] [place] [address], [address] [place] [address]#### CMP, CBCA ####[facility] ([id number])[address] [place] [address] Glucose [Mass/Vol]100 mg/hSEynk12-02HvkIcrjmf [facility] HospitalComment on above: Performed By: #### 2571-8 ####[facility] ([id number])0 [facility], [address], [place] [address]#### CMP, CBCA ####[facility] ([id number])[address] [place], [place] [address]Eosyxespp [Moles/Vol]4.1 mmol/LNormal3.5-5.0Pro[facility] HospitalComment on above:Performed By: #### 2571-8 ####[facility] ([id number])[address] [facility], [address], [place] [address]#### CMP, CBCA ####[facility] ([id number])[address] [place], [place] [address]Wkafrnt [Mass/Vol]6.8 g/dLNormal 6.0-8.0ProCentervilleComment on above:Performed By: #### 2571-8 ####[facility] ([id number])0 [facility], [address] [place] [address]#### CMP, CBCA ####[facility] ([id number])[address] [place], [place] [address]Eprbuc [Moles/Vol]145 mmol/EHkfybd519-598JmbXjdzra [facility] HospitalComment on above:Performed By: #### 2571-8 ####[facility] ([id number])0 [facility], [address], [place] [address]#### CMP, CBCA ####[facility] ([id number])[address] [place], [place] [address]Sypb nitrogen [Mass/Vol]21 mg/dLNormal5-23Pro[facility] HospitalComment on above: Performed By: #### 2571-8 ####[facility] ([id number])[address] [place] [address], [address] [place] [address]#### XENIA, CBCA ####[facility] ([id number])[address] [place] [address]Vczndzh Glucometer (BldC) [Mass/Vol]on 93-21-9165Jncbbow [Mass/Vol]170 mg/tOCqul32-47IleKgkrmkCentervilleGlucose [Mass/Vol]102 mg/pWBvix69-96HywDmkcopCentervilleGlucose [Mass/Vol]93 mg/qKCvnntw84-18MlpYpsvawCentervilleGlucose [Mass/Vol]115 mg/gBXxzv86-10ViaNhsmiiCleveland Clinic Akron GeneralTRIGLYCERIDEon 69-01-8855Onffqxjivdfz [Mass/Vol]422 mg/jDSche56-094FuyDmjbqfCleveland Clinic Akron GeneralComment on above: Performed By: #### 2571-8 ####[facility] ([id number])[address] [place] [address], [address] [place] [address]#### XENIA, CBCA ####[facility] ([id number])[address] [place] [address]UP CHEST 1 VWon 04-21-2023 XR CHEST 1 [...] Victor Hugo Kim MD on 04/21/2023 5:51 AMNormalProMediJoint Township District Memorial HospitalCB AND AUTO DIFFon 15-14-3121AYQAUWJL BASOPHIL0.0 X10E9/LNormal0.0-0.2 ProMedicSelect Medical Specialty Hospital - Cleveland-FairhillComment on above:Performed By: #### CBCA, CMP ####[facility] ([id number])[address] [place] [address]#### 2571-8 ####[facility] ([id number])[address] [address]QVBFHCHH NEUTROPHIL3.9 X10E9/LNormal1.5-6.6Pro[place] Comment on above:Performed By: #### CBCA, CMP ####[facility] ([id number])[address] [place] [address]#### 2571-8 ####[facility] ([id number])[address], [address] [address]Sjtfkiwjw/100 WBC (Bld)0.3 %NormalProCentervilleComment on above:Performed By: #### CBCA, CMP ####[facility] ([id number])[address] [place] [address]#### 2571-8 ####[facility] ([id number])[address], [address] [address]Bukohmcmcvs (Bld) [#/Vol]0.1 10*3/uLNormal 0.0-0.4ProCentervilleComment on above:Performed By: #### CBCA, CMP ####[facility] ([id number])[address] [place] [address]#### 2571-8 ####[facility] ([id number])[address] [address]Tcxndoodkfk/100 WBC (Bld)1.1 %NormalProCentervilleComment on above:Performed By: #### CBCA, CMP ####[facility] ([id number])[address] [place], [place]#### 2571-8 ####[facility] ([id number])[address] [address] Erythrocyte distribution width (RBC) [Ratio]21.9 %High11.5-15.0ProCentervilleComment on above:Performed By: #### CBCA, CMP ####[facility] ([id number])28[address] [facility] [id number]#### 2571-8 ####[facility] ([id number])[address], [place] [address] Hematocrit (Bld) [Volume fraction]31.9 %Stp19-57OlnZmjzqbCenterville Comment on above:Performed By: #### CBCA, CMP ####[facility] ([id number])2801 [facility] [id number]#### 2571-8 ####[facility] ([id number])[address], [address], [place] [address]Lzojsdruur (Bld) [Mass/Vol]10.0 g/dLLow11.7-15.5PMercy Health Allen HospitalComment on above: Performed By: #### CBCA, CMP ####[facility] ([id number])2801 [facility] [id number]#### 2571-8 ####[facility] ([id number])[address], [place] [address]Ymoluzfjffy (Bld) [#/Vol] 1.2 10*3/uLNormal1.0-3.5PMercy Health Allen HospitalComment on above:Performed By: #### CBCA, CMP ####[facility] ([id number])28[address] [facility] [id number]#### 2571-8 ####[facility] ([id number])[address], [address], [place] [address]Iazwptpvtto/100 WBC (Bld)20.9 %Normal [facility] HospitalComment on above:Performed By: #### CBCA, CMP ####[facility] ([id number])[address] [place], [place]#### 2571-8 ####[facility] ([id number])[address], [address], [place] [address]JHN (RBC) [Entitic mass]26.5 abAzm29-93PlhBsxwhhCentervilleComment on above:Performed By: #### CBCA, CMP ####[facility] ([id number])[address] [place], [place] [id number]#### 2571-8 ####[facility] ([id number])[address], [address] [place] [address]HNCR (RBC) [Mass/Vol]31.3 g/uYPmd43-44DdcYsprgfCentervilleComment on above:Performed By: #### CBCA, CMP ####[facility] ([id number])[address] [place] [id number]#### 2571-8 ####[facility] ([id number])[address] [address] [place] [address]BKU (RBC) [Entitic vol]85 hUObxhnd98-197 [facility] HospitalComment on above:Performed By: #### CBCA, CMP ####[facility] ([id number])[address] [place] [id number]#### 2571-8 ####[facility] ([id number])[address] [address] [place] [address]Jwaousxfb (Bld) [#/Vol]0.5 10*3/uLNormal0-0.9[facility] Comment on above:Performed By: #### CBCA, CMP ####[facility] ([id number])[address] [place] [id number]#### 2571-8 ####[facility] ([id number])[address], [address] [place] [address]Rhwwikawb/100 WBC (Bld)8.8 %NormalProAultman Orrville Hospitalca [facility] HospitalComment on above:Performed By: #### CBCA, CMP ####[facility] ([id number])2801 [facility] [id number]#### 2571-8 ####[facility] ([id number])[address], [address], [place] [address]Jmzuyvppygi/100 WBC (Bld)68.9 %Normal [facility] HospitalComment on above:Performed By: #### CBCA, CMP ####[facility] ([id number])[address] [place] [address], [id number]#### 2571-8 ####[facility] ([id number])[address], [address] [place] [address]Vrieqodp mean volume (Bld) [Entitic vol]7.5 fLNormal7-12[facility] HospitalComment on above:Performed By: #### CBCA, CMP ####[facility] ([id number])[address] [facility], [id number]#### 2571-8 ####[facility] ([id number])[address], [address] [place] [address] Platelets (Bld) [#/Vol]347 10*3/iJYufsar134-644TcqOlvlkh [facility] HospitalComment on above:Performed By: #### CBCA, CMP ####[facility] ([id number])[address] [place] [address], [id number]#### 2571-8 ####[facility] ([id number])[address], [address] [place] [address]JVG COUNT3.77 X10E12/LLow3.80-5.20ProCentervilleComment on above:Performed By: #### CBCA, CMP ####[facility] ([id number])[address] [facility], [id number]#### 2571-8 ####[facility] ([id number])[address], [address], [place] [address]JMP morphology finding Nom (Bld)REVIEWED NormalProCentervilleComment on above:Performed By: #### CBCA, CMP ####[facility] ([id number])2801 [facility] [id number]#### 2571-8 ####[facility] ([id number])[address], [address], [place] [address]DPH (Bld) [#/Vol]5.6 10*3/uLNormal4.0-11.0[facility] GeneralComment on above:Performed By: #### CBCA, CMP ####[facility] ([id number])2801 [facility] [id number]#### 2571-8 ####[facility] ([id number])[address], [address], [place] [address] COMPREHENSIVE METABOLIC PANELon 80-64-9338Zlcduyz [Mass/Vol]2.6 g/dLLow3.2-5.3 [facility]erculosis HospitalComment on above:Performed By: #### CBCA, CMP ####[facility] ([id number])[address] [place], [place]#### 2571-8 ####[facility] ([id number])[address], [address], [place] [address]UHF [Catalytic activity/Vol]66 U/ULvbgsm29-626OsiPcppmeCenterville Comment on above:Performed By: #### CBCA, CMP ####[facility] ([id number])[address] [facility] [id number]#### 2571-8 ####[facility] ([id number])[address], [address], [place] [address]PCV [Catalytic activity/Vol]14 U/LNormal0-31[facility] HospitalComment on above: Performed By: #### CBCA, CMP ####[facility] ([id number])[address] [facility], [id number]#### 2571-8 ####[facility] ([id number])[address], [address], [place] [address]Czjpn gap [Moles/Vol]7 mmol/LNormal5-15Pro[facility] HospitalComment on above:Performed By: #### CBCA, CMP ####[facility] ([id number])[address] [place] [address]#### 2571-8 ####[facility] ([id number])[address], [address], [place] [address]WGD [Catalytic activity/Vol]14 U/LNormal0-41Pro[facility] HospitalComment on above:Performed By: #### CBCA, CMP ####[facility] ([id number])[address] [facility], [id number]#### 2571-8 ####[facility] ([id number])[address], [address], [place] [address]Ikqktpsmh [Mass/Vol]0.5 mg/dLNormal0.3-1.2[facility] HospitalComment on above:Performed By: #### CBCA, CMP ####[facility] ([id number])[address] [facility], [id number]#### 2571-8 ####[facility] ([id number])[address], [address], [place] [address]Mfytigw [Mass/Vol]8.4 mg/dLLow8.5-10.5[facility] HospitalComment on above: Performed By: #### CBCA, CMP ####[facility] ([id number])[address] [facility], [id number]#### 2571-8 ####[facility] ([id number])[address], [address], [place] [address]Iguhqrtm [Moles/Vol]115 mmol/WZhgh18-964PckYuvnppCentervilleComment on above:Performed By: #### MARTINA, CMP ####[facility] ([id number])[address] [place] [address]#### 2571-8 ####[facility] ([id number])[address] [facility], [address], [place] [address]GJ6 [Moles/Vol]23 mmol/XCslxnb85-96MiySnonfv [facility] HospitalComment on above:Performed By: #### ANNA, CMP ####[facility] ([id number])[address] [place] [address] [id number]#### 2571-8 ####[facility] ([id number])[address] [facility], [address], [place] [address] Creatinine [Mass/Vol]0.75 mg/dLNormal0.40-1.00ProCentervilleComment on above:Result Comment: METHOD TRACEABLE TO IDMS STANDARDPerformed By: #### ANNA, CMP ####[facility] ([id number])[address] [facility] [address]#### 2571-8 ####[facility] ([id number])[address] [address], [place] [address]xRWY (CKD-EPI) NON-RACE DEPENDENT>90Normal>59ProCentervilleComment on above:Result Comment: Reported eGFR is based on the CKD-EPI 2020 equation that does not use a race coefficient.Performed By: #### CBCA, CMP ####[facility] ([id number])[address] [facility] [id number]#### 2571-8 ####[facility] ([id number])[address], [place] [address] Glucose [Mass/Vol]100 mg/wNWyeo60-65FtnFjsdvsCentervilleComment on above: Performed By: #### CBCA, CMP ####[facility] ([id number])[address] [facility], [id number]#### 2571-8 ####[facility] ([id number])[address], [address], [place] [address]Geteprksa [Moles/Vol]3.7 mmol/LNormal3.5-5.0ProCentervilleComment on above:Performed By: #### CBCA, CMP ####[facility] ([id number])[address] [place] [address] [id number]#### 2571-8 ####[facility] ([id number])[address], [address], [place] [address]Fpokaac [Mass/Vol]7.0 g/dLNormal6.0-8.0ProCentervilleComment on above:Performed By: #### CBCA, CMP ####[facility] ([id number])[address] [place] [address], [id number]#### 2571-8 ####[facility] ([id number])[address], [address], [place] [address]Mvsinq [Moles/Vol]145 mmol/FXwaiei967-433UysVkovps [facility] HospitalComment on above:Performed By: #### CBCA, CMP ####[facility] ([id number])[address] [facility] [place], [id number]#### 2571-8 ####[facility] ([id number])[address], [place] [address]Jwbp nitrogen [Mass/Vol]16 mg/dLNormal5-23ProCentervilleComment on above:Performed By: #### CBCA, CMP ####[facility] ([id number])[address] [place], [place]#### 2571-8 ####[facility] ([id number])[address] [facility], [address], [place] [address]Dbnycij Glucometer (BldC) [Mass/Vol]on 04-48-2806Ywhhphe [Mass/Vol]135 mg/zDJmkm57-64FanDedqhsCentervilleGlucose [Mass/Vol]105 mg/uUPcag47-91HfpNaxlupCentervilleGlucose [Mass/Vol]87 mg/dL Htbwif86-65HzkJkgzrwCentervilleGlucose [Mass/Vol]97 mg/jEMxmhwe58-80 [facility]erculosis HospitalPOTASSIUMon 06-24-8055Mqqeadnmg [Moles/Vol]3.8 mmol/L Normal3.5-5.0[facility] GeneralComment on above:Performed By: #### 2823- 3 ####[facility] ([id number])[address] [place] [address] Potassium [Moles/Vol]4.1 mmol/LNormal3.5-5.0ProCentervilleComment on above:Performed By: #### 2823-3 ####[facility] ([id number])[address] [place], [place] [address]SNNSWUULITHUdy 04-20-2023 Triglyceride [Mass/Vol]335 mg/ePYooh11-961AexPbpudxCentervilleComment on above:Performed By: #### CBCA, CMP ####[facility] ([id number])[address] [place], [place] [id number]#### 2571-8 ####[facility] ([id number])[address] [facility], [address], [place] [address]YY CHEST 1 VWon 23-96-4032VA CHEST 1 VWXR CHEST 1 VW Clinical [...] by Tristen Neely MD on 04/20/2023 5:33 AMNormalCleveland Clinic Akron GeneralARTERIAL BLOOD GASon 75-62-6070DEHKM'S TESTPassNormalCleveland Clinic Akron GeneralComment on above:Performed By: #### ABG #### [facility] ([id number]) [address] [place], [place] [address]LYJX,DEFICIT1.0 MMOL/LNormal0.0-2.0[facility] Comment on above:Performed By: #### ABG #### [facility] ([id number]) [address] [place] [id number] zlpajwipdpd38.6 [degF]Caovms03.0[facility] Comment on above:Performed By: #### ABG #### [facility] ([id number]) [address] [place] [address]FCQ6 (Bld) [Moles/Vol]24.2 mmol/XItysax92-86MioJhlyiaCentervilleComment on above:Performed By: #### ABG #### [facility] ([id number]) [address] [place] [address]CONN. O2 CONC.40 %NormalProCentervilleComment on above:Performed By: #### ABG #### [facility] ([id number]) [address] [place], [place] [address]Kpvsvk (Bld) [Partial pressure]69 mm[Hg]Xpe89-994BlgIzrjxxCentervilleComment on above:Performed By: #### ABG #### [facility] ([id number]) [address] [place], [place] [address]Zdcboa saturation in Blood93.0 %Normal>90ProCentervilleComment on above:Performed By: #### ABG #### [facility] ([id number]) [address] [place], [place] [address]KTHMXK SOURCEVentNormalProCentervilleComment on above:Performed By: #### ABG #### [facility] ([id number]) [address] [place], [place] [address]EAM360.9 EUXCIncenp39-50VwlAlgjal [facility]park HospitalComment on above:Performed By: #### ABG #### [facility] ([id number]) [address] [place], [place] [address]mE (Bld)7.371 [pH]Normal7.350-7.450Pro[place]erville Comment on above:Performed By: #### ABG #### [facility] ([id number]) [address] [place], [place] [address]LWEJUJ SITELRadNormalCleveland Clinic Akron GeneralComment on above: Performed By: #### ABG #### [facility] ([id number]) [address] [place], [place] [address]AZDVDX TYPEARTERIALNormalProCentervilleComment on above:Performed By: #### ABG #### [facility] ([id number]) [address] [place], [place] [address]ESR AND AUTO DIFFon 04-00-8650JFAHTFSH BASOPHIL0.0 X10E9/LNormal 0.0-0.2[facility] Tuberculosis HospitalComment on above:Performed By: #### ABG #### [facility] ([id number]) [address] [place], [place] [address]YQXYRGQV NEUTROPHIL3.7 X10E9/LNormal1.5-6.6ProCentervilleComment on above:Performed By: #### ABG #### [facility] ([id number]) [address] [place], [place] [address]Wsfiivmzb/100 WBC (Bld)0.3 %NormalCleveland Clinic [facility]ron General Comment on above:Performed By: #### ABG #### [facility] ([id number]) [address] [place], [place] [address]Clauawgmhww (Bld) [#/Vol]0.0 10*3/uLNormal0.0-0.4[facility] GeneralComment on above:Performed By: #### ABG #### [facility] ([id number]) [address] [place], [place] [address]Ghqeejiecyf/100 WBC (Bld)0.8 %[facility] Comment on above:Performed By: #### ABG #### [facility] ([id number]) [address] [place], [place] [address]Qvaxzcttksr distribution width (RBC) [Ratio]21.6 %High11.5-15.0 [facility] GeneralComment on above:Performed By: #### ABG #### [facility] ([id number]) [address] [place], [place] [address]Vudaiiekdy (Bld) [Volume fraction]30.5 %Ztf08-65UisUkzlieCentervilleComment on above:Performed By: #### ABG #### [facility] ([id number]) [address] [place], [place] [address]Eljmtskdxl (Bld) [Mass/Vol]9.8 g/dLLow11.7-15.5PTriHealth McCull[facility] HospitalComment on above:Performed By: #### ABG #### [facility] ([id number]) [address] [place], [place] [address]Phlfautjdsi (Bld) [#/Vol]1.5 10*3/uLNormal1.0-3.5PMercy Health Allen HospitalComment on above:Performed By: #### ABG #### [facility] ([id number]) [address] [place], [place] [address]Ffsqshsmezk/100 WBC (Bld)26.6 %NormalCleveland Clinic [facility]ron General Comment on above:Performed By: #### ABG #### [facility] ([id number]) [address] [place], [place] [address]HLR (RBC) [Entitic mass]27.0 onJxnqex30-66FdkNfcvdiCentervilleComment on above:Performed By: #### ABG #### [facility] ([id number]) [address] [place] [place], [place] [address]QPMW (RBC) [Mass/Vol]32.1 g/mMKjnytp66-58SboLhwobeCentervilleComment on above:Performed By: #### ABG #### [facility] ([id number]) [address] [place], [place] [id number] (RBC) [Entitic vol]84 zAIapyev36-895PdlCaihehCleveland Clinic Akron GeneralComment on above:Performed By: #### ABG #### [facility] ([id number]) [address] [facility] [place], [place] [address]Omxmlrhep (Bld) [#/Vol]0.4 10*3/uLNormal0-0.9[facility] GeneralComment on above:Performed By: #### ABG #### [facility] ([id number]) [facility] [place] [place], [place] [address]Pnqnybpee/100 WBC (Bld)6.8 %[facility] Comment on above:Performed By: #### ABG #### [facility] ([id number]) [address] [place] [place], [place] [address]Atmoryrymzc/100 WBC (Bld)65.5 %[facility] Comment on above:Performed By: #### ABG #### [facility] ([id number]) [address] [place] [place], [place] [address]Deltvhux mean volume (Bld) [Entitic vol]7.5 fLNormal7-12 [facility] HospitalComment on above:Performed By: #### ABG #### [facility] ([id number]) [address] [place], [place] [address]Ryvbnmgva (Bld) [#/Vol]328 10*3/mLRbsmhc536-726MzlIiimse [facility] HospitalComment on above:Performed By: #### ABG #### [facility] ([id number]) [address] [place], [place] [address]CME COUNT3.62 X10E12/LLow3.80-5.20[facility] Comment on above:Performed By: #### ABG #### [facility] ([id number]) [address] [place], [place] [address]QDC morphology finding Nom (d)REVIEWEDNormalCleveland Clinic Akron GeneralComment on above:Performed By: #### ABG #### [facility] ([id number]) [address] [place], [place] [address]TKP (d) [#/Vol]5.6 10*3/uLNormal4.0-11.0ProCentervilleComment on above:Performed By: #### ABG #### [facility] ([id number]) [address] [place], [place] [address]TAFUHPQOMDTVU METABOLIC PANELon 47-71-7086Mnupsan [Mass/Vol]2.4 g/dLLow3.2-5.3PMercy Health Allen HospitalComment on above:Performed By: #### ABG #### [facility] ([id number]) [address] [place], [place] [address]EKE [Catalytic activity/Vol]62 U/TZyrsxk96-177GyfHhbforCleveland Clinic Akron GeneralComment on above:Performed By: #### ABG #### [facility] ([id number]) [address] [place], [place] [address]ZKK [Catalytic activity/Vol]16 U/LNormal0-31ProMedAkron Children's HospitalComment on above:Performed By: #### ABG #### [facility] ([id number]) [address] [place], [place] [address]Hoxbd gap [Moles/Vol]6 mmol/LNormal5-15ProCentervilleComment on above:Performed By: #### ABG #### [facility] ([id number]) [address] [place], [place] [address]WJX [Catalytic activity/Vol]18 U/LNormal0-41ProCentervilleComment on above:Performed By: #### ABG #### [facility] ([id number]) [address] [place], [place] [address]Cemsxwpun [Mass/Vol]0.5 mg/dLNormal0.3-1.2PMercy Health Allen HospitalComment on above:Performed By: #### ABG #### [facility] ([id number]) [address] [facility] [address] [place], [place] [address]Isjbyzv [Mass/Vol]8.2 mg/dLLow8.5-10.5PMercy Health Allen Hospital Comment on above:Performed By: #### ABG #### [facility] ([id number]) [address] [place], [place] [address]Xcmlqndw [Moles/Vol]115 mmol/TFzdr86-180KpuAfecmxCentervilleComment on above:Performed By: #### ABG #### [facility] ([id number]) [address] [place], [place] [address]JS2 [Moles/Vol]25 mmol/YLazefu53-15SnbIklcyoMercy Health Allen Hospital Comment on above:Performed By: #### ABG #### [facility] ([id number]) [address] [place], [place] [address]Nnbjknunhk [Mass/Vol]0.97 mg/dLNormal0.40-1.00ProCentervilleComment on above:Result Comment: METHOD TRACEABLE TO IDMS STANDARD Performed By: #### ABG #### [facility] ([id number]) [address] [place], [place] [address]JUO/1.73 sq M.predicted among non-blacks MDRD (S/P/Bld) [Vol rate/Area]67 mL/min/{1.73_m2}Normal>59ProCentervilleComment on above:Result Comment: Reported eGFR is based on the CKD-EPI 2020 equation that does not use a race coefficient.Performed By: #### ABG #### [facility] ([id number]) [address] [place], [place] [address]Gwsbyqa [Mass/Vol]98 mg/cKTmacan54-64GatZtfgdjCleveland Clinic [facility]ron General Comment on above:Performed By: #### ABG #### [facility] ([id number]) [address] [place], [place] [address]Qsfkmtxri [Moles/Vol]3.3 mmol/LLow3.5-5.0[facility] GeneralComment on above:Performed By: #### ABG #### [facility] ([id number]) [address] [place], [place] [address]Gxxpcuy [Mass/Vol]6.5 g/dLNormal6.0-8.0ProCentervilleComment on above:Performed By: #### ABG #### [facility] ([id number]) [address] [place], [place] [address]Ftwdnz [Moles/Vol]146 mmol/VJdcubh738-058UhoIvflul Baypark HospitalComment on above:Performed By: #### ABG #### [facility] ([id number]) [address] [place], [place] [address]Dvlx nitrogen [Mass/Vol]14 mg/dLNormal5-23ProCentervilleComment on above:Performed By: #### ABG #### [facility] ([id number]) [address] [place], [place] [address]TND [Mass/Vol]on 3C REACTIVE PROTEIN6.1 mg/dLHigh 0.000-0.744PMercy Health Allen HospitalComment on above:Performed By: #### ABG #### [facility] ([id number]) [address] [place], [place] [address]Ooylgmb Glucometer (BldC) [Mass/Vol]on 21-33-7539Ercmlks [Mass/Vol]176 mg/kFJydf50-00EtjKqbdcvCentervilleGlucose [Mass/Vol]92 mg/dL Pxjsjz64-77DanOqbzkqCentervilleGlucose [Mass/Vol]94 mg/gFPdutbp88-53 [facility] Tuberculosis HospitalGlucose [Mass/Vol]93 mg/gIJqkoxj47-75BrbJguakqCentervilleLactate (P yong) [Moles/Vol]on 41-74-1790Rjuzouz [Moles/Vol]0.9 mmol/L Normal0.4-2.0ProCentervilleComment on above:Performed By: #### ABG #### [facility] ([id number]) [address] [facility] [place], [place] [address]Vbpjcnicmtd peptide B [Mass/Vol]on 71-89-0013Ipfscavbnrd peptide B (Bld) [Mass/Vol]25 pg/mLNormal<100.0ProCentervilleComment on above:Performed By: #### ABG #### [facility] ([id number]) [address] [facility] [place], [place] [address]JBDNECFNUjc 08-53-4835Huhqlgdsw [Moles/Vol]3.6 mmol/LNormal 3.5-5.0ProCentervilleComment on above:Performed By: #### ABG #### [facility] ([id number]) [address] [facility] [place], [place] [id number] CHEST 1 VWon 55-76-0901ZW CHEST 1 VWXR CHEST 1 VW CLINICAL [...] Victor Hugo Kim MD on 04/19/2023 5:41 AMNormalProCentervilleARTERIAL BLOOD GASon 77-27-1013VGEBP'S TESTNormalProCentervilleComment on above:Performed By: #### CMP, 51604-8, , CBCA #### [facility] ([id number]) [address] [place], [place] [address]CBSO,DEFICIT1.0 MMOL/LNormal0.0-2.0[facility] Comment on above:Performed By: #### CMP, 93206-1, , CBCA #### [facility] ([id number]) [address] [place], [place] [address]Ihuh lryznuwmxnn25.6 [degF]Olwpki58.0[facility] Comment on above:Performed By: #### XENIA, 69459-5, , CBCA #### [facility] ([id number]) [address] [place], [place] [address]ZDZ8 (Bld) [Moles/Vol]24.3 mmol/MCqqjjx82-15BzmWccrehCentervilleComment on above:Performed By: #### CMP, 98552-3, , CBCA #### [facility] ([id number]) [address] [place], [place] [address]QIQQ. O2 CONC.50 %NormalProCentervilleComment on above:Performed By: #### CMP, 80407-9, , CBCA #### [facility] ([id number]) [address] [place], [place] [id number] (Bld) [Partial pressure]71 mm[Hg]Wbg48-672VcfNysuxwCentervilleComment on above:Performed By: #### CMP, 60171-6, , CBCA #### [facility] ([id number]) [address] [place], [place] [id number] saturation in Blood94.0 %Normal>90ProCentervilleComment on above:Performed By: #### CMP, 58426-1, , CBCA #### [facility] ([id number]) [address] [place], [place] [address]UIILAP SOURCEVentNormalProMedica University Tuberculosis HospitalComment on above:Performed By: #### XENIA, 55538-3, , CBCA #### [facility] ([id number]) [address] [place], [place] [address]CWX803.7 KCWHDngqqs33-69TfrNmdanw University Tuberculosis HospitalComment on above:Performed By: #### XENIA, 36293-2, 04681-3, CBCA #### [facility] ([id number]) [address] [place], [place] [address]eX (Bld)7.373 [pH]Normal7.350-7.450ProCenterville Comment on above:Performed By: #### XENIA, 91714-3, , CBCA #### [facility] ([id number]) [address] [place], [place] [id number] SITELRadNormalProCentervilleComment on above: Performed By: #### XENIA, 36546-7, , CBCA #### [facility] ([id number]) [address] [place], [place] [id number] TYPEARTERIALNormalProCentervilleComment on above:Performed By: #### XENIA, 32605-5, , CBCA #### [facility] ([id number]) [address] [place], [place] [id number] AND AUTO DIFFon 75-47-1271YWGROWCX BASOPHIL0.0 X10E9/LNormal 0.0-0.2Pro[facility] HospitalComment on above:Performed By: #### XENIA, 78807- 0, , CBCA #### [facility] ([id number]) [address] [place], [place] [address]RFOTLMGA NEUTROPHIL2.5 X10E9/LNormal1.5-6.6Pro[facility] HospitalComment on above:Performed By: #### XENIA, 67976-3, , CBCA #### [facility] ([id number]) [address] [facility] [place], [place] [address]Wfzeftbdxhch Ql (Bld)2+AbnormalNONEProMedica University [facility]erculosis Hospital Comment on above:Performed By: #### CMP, 03732-7, , CBCA #### [facility] ([id number]) [address] [place], [place] [id number]/100 WBC (Bld)0.2 %NormalCleveland Clinic [facility] Comment on above:Performed By: #### CMP, 40240-2, , CBCA #### [facility] ([id number]) [address] [place], [place] [id number] (Bld) [#/Vol]0.0 10*3/uLNormal0.0-0.4[facility] GeneralComment on above:Performed By: #### XENIA, 81037-9, , CBCA #### [facility] ([id number]) [address] [place], [place] [id number]/100 WBC (Bld)0.1 %NormalCleveland Clinic [facility] General Comment on above:Performed By: #### XENIA, 25952-6, , CBCA #### [facility] ([id number]) [address] [place], [place] [id number] distribution width (RBC) [Ratio]22.1 %High11.5-15.0 ProMMercy Health Clermont HospitalComment on above:Performed By: #### CMP, 45543-4, , CBCA #### [facility] ([id number]) [address] [place], [place] [address]Lltltxddth (Bld) [Volume fraction]31.1 %Rru91-38CrrDvomvwCleveland Clinic Akron GeneralComment on above:Performed By: #### CMP, 69986-7, , CBCA #### [facility] ([id number]) [address] [place], [place] [address]Iivbxjvzzp (Bld) [Mass/Vol]9.9 g/dLLow11.7-15.5PMercy Health Allen HospitalComment on above:Performed By: #### XENIA, 13152-9, , CBCA #### [facility] ([id number]) [address] [place], [place] [address]Xnrtnpihoka (Bld) [#/Vol]1.2 10*3/uLNormal1.0-3.5PMercy Health Allen HospitalComment on above:Performed By: #### CMP, 09773-8, , CBCA #### [facility] ([id number]) [address] [place], [place] [address]Vxownfxafpk/100 WBC (Bld)30.6 %NormalCleveland Clinic [facility] General Comment on above:Performed By: #### XENIA, 06114-3, , CBCA #### [facility] ([id number]) [address] [place], [place] [id number] (RBC) [Entitic mass]27.0 zxTcvukw46-56WehOpjhasCleveland Clinic Akron GeneralComment on above:Performed By: #### XENIA, 61978-4, , CBCA #### [facility] ([id number]) [address] [place], [place] [address]CHMM (RBC) [Mass/Vol]31.8 g/pKQws33-64OxaXqgxmlCleveland Clinic [facility] General Comment on above:Performed By: #### XENIA, 22230-5, , CBCA #### [facility] ([id number]) [address] [place], [place] [id number] (RBC) [Entitic vol]85 pKGrqiet54-409UfbAdiqtlCleveland Clinic Akron GeneralComment on above:Performed By: #### CMP, 04953-7, 09440-5, CBCA #### [facility] ([id number]) [address] [place], [place] [id number] (Bld) [#/Vol]0.3 10*3/uLNormal0-0.9ProCentervilleComment on above:Performed By: #### CMP, 65411-7, , CBCA #### [facility] ([id number]) [address] [place], [place] [address]Qbqsalnsu/100 WBC (Bld)7.4 %NormalCleveland Clinic Akron General Comment on above:Performed By: #### CMP, 98612-4, 51560-6, CBCA #### [facility] ([id number]) [address] [facility] [place], [place] [address]Cgvbquqkalh/100 WBC (Bld)61.7 %NormalCleveland Clinic Akron General Comment on above:Performed By: #### CMP, 26443-9, , CBCA #### [facility] ([id number]) [address] [facility] [place], [place] [address]Owatljuu mean volume (Bld) [Entitic vol]7.5 fLNormal7-12 ProMedicSelect Medical Specialty Hospital - Cleveland-FairhillComment on above:Performed By: #### CMP, 20071-2, , CBCA #### [facility] ([id number]) [address] [facility] [place], [place] [address]Gkwipbwpz (Bld) [#/Vol]317 10*3/hFKgjlmr322-989NeuWvbyih [facility]park HospitalComment on above:Performed By: #### CMP, 21948-9, , CBCA #### [facility] ([id number]) [address] [place], [place] [id number] COUNT3.65 X10E12/LLow3.80-5.20[facility] Comment on above:Performed By: #### CMP, 57350-2, 77133-9, CBCA #### [facility] ([id number]) [address] [place], [place] [id number] (Bld) [#/Vol]4.0 10*3/uLNormal4.0-11.0ProCentervilleComment on above:Performed By: #### CMP, 42650-7, 98162-9, CBCA #### [facility] ([id number]) [address] [place], [place] [address]WVOZVEUCZJTSP METABOLIC PANELon 59-75-1805Gktwbqr [Mass/Vol]2.4 g/dLLow3.2-5.3ProMedFlower Hospital HospitalComment on above:Performed By: #### CMP, 09217-9, 38245-7, CBCA #### [facility] ([id number]) [address] [place], [place] [address]NZB [Catalytic activity/Vol]64 U/SRlbzdu35-843XidRdvlsi [facility] HospitalComment on above:Performed By: #### XENIA, 46402-4, , CBCA #### [facility] ([id number]) [address] [place], [place] [address]MBV [Catalytic activity/Vol]18 U/LNormal0-31ProMedFlower Hospital HospitalComment on above:Performed By: #### XENIA, 22187-5, , CBCA #### [facility] ([id number]) [address] [place], [place] [address]Seele gap [Moles/Vol]7 mmol/LNormal5-15ProMetrohealth [facility] HospitalComment on above:Performed By: #### CMP, 04351-6, 46282-5, CBCA #### [facility] ([id number]) [address] [place], [place] [address]WQW [Catalytic activity/Vol]20 U/LNormal0-41ProMetrohealth [facility] HospitalComment on above:Performed By: #### CMP, 04011-2, 98338-2, CBCA #### [facility] ([id number]) [address] [place], [place] [address]Ssfgvelnt [Mass/Vol]0.4 mg/dLNormal0.3-1.2PTriHealth McCullough-[facility] HospitalComment on above:Performed By: #### CMP, 72914-4, 52342-2, CBCA #### [facility] ([id number]) [address] [place], [place] [address]Txmygtc [Mass/Vol]7.0 mg/dLLow8.5-10.5PMercy Health Allen Hospital Comment on above:Performed By: #### XENIA, 19438-8, , CBCA #### [facility] ([id number]) [address] [place], [place] [address]Nelyuvdz [Moles/Vol]114 mmol/JJpfe17-159LtlBjggvsCleveland Clinic Akron GeneralComment on above:Performed By: #### XENIA, 05289-3, , CBCA #### [facility] ([id number]) [address] [place], [place] [address]FA5 [Moles/Vol]25 mmol/ZYrmsom94-99RmwHgsgvvMercy Health Allen Hospital Comment on above:Performed By: #### XENIA, 28915-7, , CBCA #### [facility] ([id number]) [address] [place], [place] [address]Xoihxzgodf [Mass/Vol]0.83 mg/dLNormal0.40-1.00C[facility] Clinic [facility] GeneralComment on above:Result Comment: METHOD TRACEABLE TO IDMS STANDARD Performed By: #### XENIA, 82232-1, , CBCA #### [facility] ([id number]) [address] [place], [place] [address]KDH/1.73 sq M.predicted among non-blacks MDRD (S/P/Bld) [Vol rate/Area]81 mL/min/{1.73_m2}Normal>59ProCentervilleComment on above:Result Comment: Reported eGFR is based on the CKD-EPI 2020 equation that does not use a race coefficient.Performed By: #### XENIA, 29442-4, , CBCA #### [facility] ([id number]) [address] [place], [place] [address]Upgztxz [Mass/Vol]100 mg/vTZryh43-47YxwPdjdrfCleveland Clinic Akron General Comment on above:Performed By: #### XENIA, 90195-6, , CBCA #### [facility] ([id number]) [address] [place], [place] [address]Joolnbuev [Moles/Vol]4.7 mmol/LNormal3.5-5.0ProCentervilleComment on above:Performed By: #### XENIA, 80482-3, , CBCA #### [facility] ([id number]) [address] [place], [place] [address]Lfgwkpj [Mass/Vol]6.4 g/dLNormal6.0-8.0ProCentervilleComment on above:Performed By: #### XENIA, 06588-2, , CBCA #### [facility] ([id number]) [address] [place], [place] [address]Vbxphp [Moles/Vol]146 mmol/VZregdx739-510JdtAfhzvy [facility] HospitalComment on above:Performed By: #### XENIA, 56567-1, , CBCA #### [facility] ([id number]) [address] [place], [place] [address]Oxsh nitrogen [Mass/Vol]12 mg/dLNormal5-23ProCentervilleComment on above:Performed By: #### XENIA, 65290-3, , CBCA #### [facility] ([id number]) [address] [place], [place] [address]Iuvtlld.ionized (Bld) [Moles/Vol]on 74-41-8339QWYSFUPG ICA4.8 mg/dLNormal4.5-5.3ProMedica University Tuberculosis HospitalComment on above:Performed By: #### XENIA, 73723-7, , CBCA #### [facility] ([id number]) [address] [place], [place] [address]Lbmbcfp Glucometer (BldC) [Mass/Vol]on 65-54-4339Wwsnemf [Mass/Vol]126 mg/pCGhdl44-86FwrChnchtCentervilleGlucose [Mass/Vol]94 mg/dL Ocfpvl22-78QhhHkirfrCentervilleGlucose [Mass/Vol]104 mg/bNVjar02-99 Pro[facility] Tuberculosis HospitalXR CHEST 1 VWon 57-33-2631QK CHEST 1 VWXR CHEST 1 VW Single view chest History: Difficulty breathing, shortness of breath. Covid positive. Comparison: 04/17/2023 Findings: Similar loop configuration left IJ catheter. Similar ET tube. Partially imaged enteric tube. Mediansternotomy. Stable enlarged cardiac silhouette. Bandlike opacity right lower lobe, likely atelectatic. Small effusions. No measurable pneumothorax. Right costophrenic angle excluded from ucjea-cs-ikfj. Impression: 1. Persistent effusions, with or without underlying pneumonia. 2. Looped configuration left IJ catheter and correlate with function. Finalized by Victor Hugo Gustafson MD on 04/18/2023 5:44 AMNormalCleveland Clinic Akron GeneralARTERIAL BLOOD GASon 05-69-1232JBEBD'S TESTPassNormalCleveland Clinic Akron GeneralComment on above:Performed By: #### XENIA, 07759-9, , CBCA #### [facility] ([id number]) [address] [place], [place] [address]KRLL,DEFICIT1.0 MMOL/LNormal0.0-2.0[facility] Comment on above:Performed By: #### XENIA, 07359-3, 04150-4, CBCA #### [facility] ([id number]) [address] [place] [id number] .6 [degF]Brzpet08.0[facility] Comment on above:Performed By: #### EXNIA, 17415-0, 07366-1, CBCA #### [facility] ([id number]) [address] [place], [place] [address]TXB8 (Bld) [Moles/Vol]24.3 mmol/DVbzvxz87-38BhuSldnprCleveland Clinic Akron GeneralComment on above:Performed By: #### XENIA, 64008-3, 59984-4, CBCA #### [facility] ([id number]) [address] [place], [place] [address]IHYO. O2 CONC.50 %NormalProCentervilleComment on above:Performed By: #### CMP, 47049-9, 99253-2, CBCA #### [facility] ([id number]) [address] [place], [place] [address]Qxvetj (Bld) [Partial pressure]73 mm[Hg]Aon85-189FvnLutugmCentervilleComment on above:Performed By: #### CMP, 46711-5, 03140-0, CBCA #### [facility] ([id number]) [address] [place], [place] [address]Xtzpen saturation in Blood94.0 %Normal>90ProCentervilleComment on above:Performed By: #### CMP, 99805-2, 93349-0, CBCA #### [facility] ([id number]) [address] [place], [place] [address]GQUION SOURCEVentNormalCleveland Clinic Akron GeneralComment on above:Performed By: #### CMP, 94821-6, 36537-7, CBCA #### [facility] ([id number]) [address] [place], [place] [address]EFW596.9 PRKNNdvbqb80-32RjdNmwomy [facility]park HospitalComment on above:Performed By: #### CMP, 63509-6, 26768-8, CBCA #### [facility] ([id number]) [address] [place], [place] [id number] (Bld)7.342 [pH]Low7.350-7.450ProCenterville Comment on above:Performed By: #### CMP, 10400-0, 46435-4, CBCA #### [facility] ([id number]) [address] [place], [place] [address]XZQXDE SITERRadNormalCleveland Clinic Akron GeneralComment on above: Performed By: #### CMP, 14060-9, 48320-3, CBCA #### [facility] ([id number]) [address] [place], [place] [address]CCWGQR TYPEARTERIALNormalProCentervilleComment on above:Performed By: #### XENIA, 76187-3, 02206-3, CBCA #### [facility] ([id number]) [address] [place], [place] [address]VOXDI METABOLIC PANLon 67-13-9370Xluqr gap [Moles/Vol]8 mmol/L Normal5-15[facility] GeneralComment on above:Performed By: #### XENIA, 42956-7, , CBCA #### [facility] ([id number]) [address] [place], [place] [address]Rwfvufj [Mass/Vol]8.3 mg/dLLow8.5-10.5PMercy Health Allen Hospital Comment on above:Performed By: #### XENIA, 38154-5, 42238-2, CBCA #### [facility] ([id number]) [address] [place], [place] [address]Znogzfpn [Moles/Vol]114 mmol/GJbce38-589XwgBrmdmpCleveland Clinic Akron GeneralComment on above:Performed By: #### XENIA, 77047-6, , CBCA #### [facility] ([id number]) [address] [place], [place] [address]IS0 [Moles/Vol]23 mmol/RSmdsqo34-88AerFznxxbMercy Health Allen Hospital Comment on above:Performed By: #### XENIA, 61188-6, , CBCA #### [facility] ([id number]) [address] [place], [place] [address]Kbcpqyejsq [Mass/Vol]0.96 mg/dLNormal0.40-1.00[facility] GeneralComment on above:Result Comment: METHOD TRACEABLE TO IDMS STANDARD Performed By: #### XENIA, 20468-5, , CBCA #### [facility] ([id number]) [address] [place], [place] [address]XNQ/1.73 sq M.predicted among non-blacks MDRD (S/P/Bld) [Vol rate/Area]68 mL/min/{1.73_m2}Normal>59ProCentervilleComment on above:Result Comment: Reported eGFR is based on the CKD-EPI 2020 equation that does not use a race coefficient.Performed By: #### XENIA, 40319-2, , CBCA #### [facility] ([id number]) [address] [place], [place] [address]Vzzvaiw [Mass/Vol]164 mg/wUOrpz25-57ElbOurjsvCenterville Comment on above:Performed By: #### XENIA, 33231-8, , CBCA #### [facility] ([id number]) [address] [place], [place] [address]Fptgbxlfg [Moles/Vol]4.3 mmol/LNormal3.5-5.0ProCentervilleComment on above:Performed By: #### XENIA, 39494-2, , CBCA #### [facility] ([id number]) [address] [place], [place] [address]Uzwldw [Moles/Vol]145 mmol/DCsuggn024-357UccZhcrom Baypark HospitalComment on above:Performed By: #### XENIA, 50499-1, , CBCA #### [facility] ([id number]) [address] [place], [place] [address]Bsvc nitrogen [Mass/Vol]11 mg/dLNormal5-23ProCentervilleComment on above:Performed By: #### XENIA, 63475-4, , CBCA #### [facility] ([id number]) [address] [place], [place] [address]LMW AND AUTO DIFFon 78-55-4853NYJEPAJW BASOPHIL0.0 X10E9/LNormal 0.0-0.2ProMedAkron Children's HospitalComment on above:Performed By: #### XENIA, 83834- 0, , CBCA #### [facility] ([id number]) [address] [place], [place] [address]UBIDQMDS NEUTROPHIL2.3 X10E9/LNormal1.5-6.6[facility] GeneralComment on above:Performed By: #### XENIA, 77172-8, , CBCA #### [facility] ([id number]) [address] [facility] [address] [place], [place] [address]Hxrjuvfxnnlp Ql (Bld)2+AbnormalNONEProMedica [facility] Comment on above:Performed By: #### XENIA, 76910-4, , CBCA #### [facility] ([id number]) [address] [facility] [place], [place] [address]Wkjvxitpp/100 WBC (Bld)0.3 %NormalCleveland Clinic Akron General Comment on above:Performed By: #### XENIA, 76426-6, , CBCA #### [facility] ([id number]) [address] [facility] [place], [place] [address]Wkxizfcnlww (Bld) [#/Vol]0.0 10*3/uLNormal0.0-0.4ProCentervilleComment on above:Performed By: #### XENIA, 34570-4, , CBCA #### [facility] ([id number]) [address] [facility] [place], [place] [address]Gyzhrrzojpq/100 WBC (Bld)0.2 %NormalCleveland Clinic Akron General Comment on above:Performed By: #### XENIA, 62392-7, , CBCA #### [facility] ([id number]) [address] [place], [place] [address]Cactfxpsvlr distribution width (RBC) [Ratio]22.2 %High11.5-15.0 ProMedicSelect Medical Specialty Hospital - Cleveland-FairhillComment on above:Performed By: #### XENIA, 66574-1, , CBCA #### [facility] ([id number]) [address] [place], [place] [address]Dsuescxlfy (Bld) [Volume fraction]30.6 %Mzl29-09QklPtinjbCentervilleComment on above:Performed By: #### CMP, 00942-9, , CBCA #### [facility] ([id number]) [address] [facility] [place], [place] [address]Aizhlnhrhs (Bld) [Mass/Vol]9.9 g/dLLow11.7-15.5PMercy Health Allen HospitalComment on above:Performed By: #### CMP, 75130-1, , CBCA #### [facility] ([id number]) [address] [facility] [place], [place] [address]Okpwkrygdep (Bld) [#/Vol]1.0 10*3/uLNormal1.0-3.5PMercy Health Allen HospitalComment on above:Performed By: #### CMP, 82979-7, , CBCA #### [facility] ([id number]) [address] [facility] [place], [place] [address]Oobnanffefg/100 WBC (Bld)29.2 %NormalProCenterville Comment on above:Performed By: #### CMP, 32100-3, , CBCA #### [facility] ([id number]) [address] [facility] [place], [place] [address]IVK (RBC) [Entitic mass]27.8 jnIqylbi75-43ActNapcmxCentervilleComment on above:Performed By: #### CMP, 27160-6, , CBCA #### [facility] ([id number]) [address] [facility] [place], [place] [address]DIFR (RBC) [Mass/Vol]32.5 g/iEQieiov03-22RmiOvakngCentervilleComment on above:Performed By: #### CMP, 28383-5, , CBCA #### [facility] ([id number]) [address] [facility] [place], [place] [address]GWI (RBC) [Entitic vol]86 bTDzxscq12-102ZgeVfjsid Baypark HospitalComment on above:Performed By: #### CMP, 96191-8, , CBCA #### [facility] ([id number]) [address] [place], [place] [address]Aiajwrvdc (Bld) [#/Vol]0.2 10*3/uLNormal0-0.9[facility] GeneralComment on above:Performed By: #### CMP, 54697-2, 30596-9, CBCA #### [facility] ([id number]) [address] [place], [place] [address]Mxndouqhp/100 WBC (Bld)5.8 %NormalCleveland Clinic [facility] General Comment on above:Performed By: #### CMP, 57536-5, 20718-3, CBCA #### [facility] ([id number]) [address] [place], [place] [address]Gkpogodvljy/100 WBC (Bld)64.5 %NormalCleveland Clinic [facility] General Comment on above:Performed By: #### CMP, 23942-6, 56503-8, CBCA #### [facility] ([id number]) [address] [place], [place] [address]Wxwxtpgt mean volume (Bld) [Entitic vol]7.7 fLNormal7-12 [facility] GeneralComment on above:Performed By: #### CMP, 89417-0, , CBCA #### [facility] ([id number]) [address] [place], [place] [address]Bynepvxgn (Bld) [#/Vol]295 10*3/sPGowzoj881-268MlaXprdip Baypark HospitalComment on above:Performed By: #### CMP, 29656-8, 60863-2, CBCA #### [facility] ([id number]) [address] [place], [place] [address]ETS COUNT3.57 X10E12/LLow3.80-5.20[facility] Comment on above:Performed By: #### CMP, 80626-3, 44762-2, CBCA #### [facility] ([id number]) [address] [place], [place] [address]PZQ (Bld) [#/Vol]3.6 10*3/uLLow4.0-11.0ProCentervilleComment on above:Performed By: #### XENIA, 10385-3, , CBCA #### [facility] ([id number]) [address] [place], [place] [address]YXHHWDAV BASOPHIL0.0 X10E9/LNormal0.0-0.2PMercy Health Allen HospitalComment on above:Performed By: #### CMP, 22519-6, , CBCA #### [facility] ([id number]) [address] [place], [place] [address]GREYYBDA NEUTROPHIL2.1 X10E9/LNormal1.5-6.6ProCentervilleComment on above:Performed By: #### XENIA, 57714-4, , CBCA #### [facility] ([id number]) [address] [place], [place] [address]Rxtwjoaiecxz Ql (Bld)2+AbnormalNONEPMercy Health Allen Hospital Comment on above:Performed By: #### XENIA, 53645-1, , CBCA #### [facility] ([id number]) [address] [place], [place] [address]Ificqmbqv/100 WBC (Bld)0.3 %NormalCleveland Clinic [facility]ron General Comment on above:Performed By: #### XENIA, 94533-2, , CBCA #### [facility] ([id number]) [address] [place], [place] [address]Lbfihnsulqq (Bld) [#/Vol]0.0 10*3/uLNormal0.0-0.4ProCentervilleComment on above:Performed By: #### CMP, 04000-9, , CBCA #### [facility] ([id number]) [address] [place], [place] [address]Xczucvngfqh/100 WBC (Bld)0.1 %NormalCleveland Clinic [facility]ron General Comment on above:Performed By: #### CMP, 36347-5, , CBCA #### [facility] ([id number]) [address] [place], [place] [address]Slgaeswgojg distribution width (RBC) [Ratio]22.0 %High11.5-15.0 ProMedicSelect Medical Specialty Hospital - Cleveland-FairhillComment on above:Performed By: #### CMP, 32601-8, 38532-2, CBCA #### [facility] ([id number]) [address] [place], [place] [address]Slvgojkqjc (Bld) [Volume fraction]31.4 %Gps91-02DqiGothjoCentervilleComment on above:Performed By: #### CMP, 19942-7, , CBCA #### [facility] ([id number]) [address] [place], [place] [address]Xbymtmoksq (Bld) [Mass/Vol]10.2 g/dLLow11.7-15.5PMercy Health Allen HospitalComment on above:Performed By: #### [facility], 75343-2, , CBCA #### [facility] ([id number]) [address] [place], [place] [address]Uhwbvygkhtu (Bld) [#/Vol]0.9 10*3/uLLow1.0-3.5PMercy Health Allen HospitalComment on above:Performed By: #### CMP, 14736-3, , CBCA #### [facility] ([id number]) [address] [place], [place] [address]Tfqfycrrbsm/100 WBC (Bld)28.7 %NormalCleveland Clinic [facility]ron General Comment on above:Performed By: #### CMP, 94453-6, , CBCA #### [facility] ([id number]) [address] [place], [place] [address]JVS (RBC) [Entitic mass]27.4 deOsjknd87-98KqjMmfgnyCentervilleComment on above:Performed By: #### CMP, 27529-5, 91920-3, CBCA #### [facility] ([id number]) [address] [place], [place] [address]LYVQ (RBC) [Mass/Vol]32.4 g/oRJrmvmw92-63LspBpzzfmCentervilleComment on above:Performed By: #### CMP, 32882-7, 21983-9, CBCA #### [facility] ([id number]) [address] [place], [place] [address]DRO (RBC) [Entitic vol]84 oDBciapj25-679LmaAlbuin Baypark HospitalComment on above:Performed By: #### CMP, 23086-6, , CBCA #### [facility] ([id number]) [address] [place], [place] [address]Wjngelqqi (Bld) [#/Vol]0.2 10*3/uLNormal0-0.9[facility] GeneralComment on above:Performed By: #### CMP, 50900-9, , CBCA #### [facility] ([id number]) [address] [place], [place] [id number]/100 WBC (Bld)6.9 %[facility] Comment on above:Performed By: #### CMP, 89837-6, 89226-2, CBCA #### [facility] ([id number]) [address] [place], [place] [id number]/100 WBC (Bld)64.0 %[facility] Comment on above:Performed By: #### CMP, 74813-3, 82014-6, CBCA #### [facility] ([id number]) [address] [place], [place] [id number] mean volume (Bld) [Entitic vol]7.8 fLNormal7-12 ProMedicSelect Medical Special[facility] Hospital - Cleveland-FairhillComment on above:Performed By: #### CMP, 76442-8, 81888-6, CBCA #### [facility] ([id number]) [address] [place], [place] [address]Egugchear (Bld) [#/Vol]301 10*3/fHXdgbrb002-997FjrUeaztf Baypark HospitalComment on above:Performed By: #### XENIA, 52655-8, 94420-1, CBCA #### [facility] ([id number]) [address] [place], [place] [id number] COUNT3.72 X10E12/LLow3.80-5.20[place] Comment on above:Performed By: #### XENIA, 02005-6, 09658-8, CBCA #### [facility] ([id number]) [address] [place], [place] [id number] (Bld) [#/Vol]3.3 10*3/uLLow4.0-11.0ProCentervilleComment on above:Performed By: #### XENIA, 35062-2, , CBCA #### [facility] ([id number]) [address] [place], [place] [address]AACARTDZTNFAQ METABOLIC PANELon 32-04-9795Vijaaqb [Mass/Vol]2.5 g/dLLow3.2-5.3PMercy Health Allen HospitalComment on above:Performed By: #### XENIA, 04961-4, , CBCA #### [facility] ([id number]) [address] [place], [place] [id number] [Catalytic activity/Vol]68 U/KOmxibz35-932WupGxsifnCentervilleComment on above:Performed By: #### XENIA, 80262-4, 98549-2, CBCA #### [facility] ([id number]) [address] [place], [place] [address]JJF [Catalytic activity/Vol]21 U/LNormal0-31PMercy Health Allen HospitalComment on above:Performed By: #### XENIA, 40996-6, 46146-2, CBCA #### [facility] ([id number]) [address] [place], [place] [address]Idorc gap [Moles/Vol]5 mmol/LNormal5-15[facility] GeneralComment on above:Performed By: #### XENIA, 94024-8, , CBCA #### [facility] ([id number]) [address] [place], [place] [address]CVO [Catalytic activity/Vol]26 U/LNormal0-41ProCentervilleComment on above:Performed By: #### XENIA, 18065-3, , CBCA #### [facility] ([id number]) [address] [place], [place] [address]Jgixawfve [Mass/Vol]0.5 mg/dLNormal0.3-1.2PMercy Health Allen HospitalComment on above:Performed By: #### XENIA, 89948-3, , CBCA #### [facility] ([id number]) [address] [place], [place] [address]Kcdvyci [Mass/Vol]8.2 mg/dLLow8.5-10.5PMercy Health Allen Hospital Comment on above:Performed By: #### XENIA, 76717-4, , CBCA #### [facility] ([id number]) [address] [place], [place] [address]Eoouxwxs [Moles/Vol]116 mmol/EJsep74-838GqaQnagyqCentervilleComment on above:Performed By: #### XENIA, 22065-6, , CBCA #### [facility] ([id number]) [address] [place], [place] [address]OL3 [Moles/Vol]25 mmol/JZzwnoi85-66VenUfbdybMercy Health Allen Hospital Comment on above:Performed By: #### XENIA, 46373-2, , CBCA #### [facility] ([id number]) [address] [place], [place] [address]Obbdmqcptw [Mass/Vol]0.92 mg/dLNormal0.40-1.00ProCentervilleComment on above:Result Comment: METHOD TRACEABLE TO IDMS STANDARD Performed By: #### XENIA, 56971-7, , CBCA #### [facility] ([id number]) [address] [place], [place] [id number]/1.73 sq M.predicted among non-blacks MDRD (S/P/Bld) [Vol rate/Area]71 mL/min/{1.73_m2}Normal>59ProCentervilleComment on above:Result Comment: Reported eGFR is based on the CKD-EPI 2020 equation that does not use a race coefficient.Performed By: #### XENIA, 35425-9, , CBCA #### [facility] ([id number]) [address] [place], [place] [address]Kzacqja [Mass/Vol]109 mg/gCSoxa28-94GjsJkquteCleveland Clinic [facility]ron General Comment on above:Performed By: #### XENIA, 48900-0, , CBCA #### [facility] ([id number]) [address] [place], [place] [address]Syaygrxak [Moles/Vol]3.6 mmol/LNormal3.5-5.0[facility] GeneralComment on above:Performed By: #### XENIA, 28418-1, , CBCA #### [facility] ([id number]) [address] [place], [place] [address]Fzedkii [Mass/Vol]6.6 g/dLNormal6.0-8.0[facility] GeneralComment on above:Performed By: #### XENIA, 99934-9, , CBCA #### [facility] ([id number]) [address] [place], [place] [address]Vvaanr [Moles/Vol]146 mmol/KXcmtul108-751SmvTayabv Baypark HospitalComment on above:Performed By: #### XENIA, 69120-9, , CBCA #### [facility] ([id number]) [address] [place], [place] [address]Pdvy nitrogen [Mass/Vol]10 mg/dLNormal5-23ProCentervilleComment on above:Performed By: #### XENIA, 10943-2, , CBCA #### [facility] ([id number]) [address] [place], [place] [address]Serijbb.ionized (Bld) [Moles/Vol]on 31-26-4455CHAJOLTH ICA4.8 mg/dLNormal4.5-5.3ProMedica University Tuberculosis HospitalComment on above:Performed By: #### XENIA, 97738-2, , CBCA #### [facility] ([id number]) [address] [place], [place] [address]Zzkbcdc Glucometer (BldC) [Mass/Vol]on 15-16-3295Wmuwgme [Mass/Vol]111 mg/lNCrni34-87KxhHlvybrCentervilleGlucose [Mass/Vol]105 mg/nTUhph69-53VmdKnkwziCentervilleMAGNESIUMon 18-93-5140Ypszmtwas [Mass/Vol]2.4 mg/dLNormal1.8-2.6ProCentervilleComment on above: Performed By: #### XENIA, 07099-8, , CBCA #### [facility] ([id number]) [address] [facility] [place], [place] [address]Lafrnqxub [Mass/Vol]2.5 mg/dLNormal1.8-2.6ProCentervilleComment on above:Performed By: #### XENIA, 54627-0, , CBCA #### [facility] ([id number]) [address] [place], [place] [address]GQTCLVZSQBvi 19-56-3963Qbppjbrmx [Mass/Vol]2.5 mg/dLNormal 2.4-4.9ProCentervilleComment on above:Performed By: #### XENIA, 58738- 0, , CBCA #### [facility] ([id number]) [address] [place], [place] [address]HZBJBAUAVgz 14-47-8451Henewztwq [Moles/Vol]3.9 mmol/LNormal 3.5-5.0[facility] GeneralComment on above:Performed By: #### XENIA, 96532- 0, 73923-0, CBCA #### [facility] ([id number]) [address] [place], [place] [address]FP CHEST 1 VWon 49-12-3129VZ CHEST 1 VWXR CHEST 1 VW CHEST 1 VIEW HISTORY: Acute respiratory failure COMPARISON: 04/16/2023 FINDINGS: Stable lines and tubes. Mild pulmonary vascular congestion/edema. Bibasilar opacities may representatelectasis or pneumonia, improved. No pleural effusions or pneumothorax. IMPRESSION: * Improved bibasilar opacities. No other significant change. Finalized by Dharmesh Graves MD on 04/17/2023 5:44 AMNormalCleveland Clinic Akron GeneralARTERIAL BLOOD GASon 69-02-7894UIWEZ'S TESTPassNormalCleveland Clinic Akron GeneralComment on above:Performed By: #### XENIA, 08845-9, 17122-5, CBCA #### [facility] ([id number]) [address] [place], [place] [address]GBLF,DEFICIT3.0 MMOL/LHigh0.0-2.0[facility] Comment on above:Performed By: #### XENIA, 80258-1, 33782-1, CBCA #### [facility] ([id number]) [address] [place], [place] [address]Fsjj rueappzfbux57.6 [degF]Ihbvre90.0[facility] Comment on above:Performed By: #### XENIA, 83516-5, 48201-4, CBCA #### [facility] ([id number]) [address] [place], [place] [address]WGN9 (Bld) [Moles/Vol]22.9 mmol/ECnbfgk50-65AjrFbhotcCentervilleComment on above:Performed By: #### XENIA, 64940-8, 94677-7, CBCA #### [facility] ([id number]) [address] [place], [place] [address]PSCY. O2 CONC.60 %NormalProCentervilleComment on above:Performed By: #### CMP, 14380-3, 50426-5, CBCA #### [facility] ([id number]) [address] [place], [place] [address]Tigypk (Bld) [Partial pressure]76 mm[Hg]Iyu15-984LxtCrcepg Baypark HospitalComment on above:Performed By: #### CMP, 74294-0, 99478-5, CBCA #### [facility] ([id number]) [address] [place], [place] [address]Hmwbpw saturation in Blood94.0 %Normal>90ProCentervilleComment on above:Performed By: #### CMP, 96405-1, 11724-5, CBCA #### [facility] ([id number]) [address] [place], [place] [address]UNCJBX SOURCEVentNormalProCentervilleComment on above:Performed By: #### CMP, 68663-3, 50495-6, CBCA #### [facility] ([id number]) [address] [place], [place] [address]EXV871.7 IFNDVnxhzh17-46SghLpzrka Baypark HospitalComment on above:Performed By: #### CMP, 48161-3, 81023-8, CBCA #### [facility] ([id number]) [address] [place], [place] [address]nI (Bld)7.336 [pH]Low7.350-7.450ProCenterville Comment on above:Performed By: #### CMP, 16463-5, 82822-7, CBCA #### [facility] ([id number]) [address] [place], [place] [address]WNTVQJ SITELRadNormalProCentervilleComment on above: Performed By: #### CMP, 89884-4, 23261-7, CBCA #### [facility] ([id number]) [address] [place], [place] [address]ULBWJT TYPEARTERIALNormalProCentervilleComment on above:Performed By: #### XENIA, 05359-9, , CBCA #### [facility] ([id number]) [address] [place], [place] [address]IOG AND AUTO DIFFon 36-79-0165RBHUCZYB BASOPHIL0.0 X10E9/LNormal 0.0-0.2PMercy Health Allen HospitalComment on above:Performed By: #### XENIA, 07927 0, , CBCA #### [facility] ([id number]) [address] [place], [place] [address]JYMEJOBG NEUTROPHIL3.2 X10E9/LNormal1.5-6.6[facility] GeneralComment on above:Performed By: #### XENIA, 28551-6, , CBCA #### [facility] ([id number]) [address] [place], [place] [address]Cupkplvgrnvz Ql (Bld)2+AbnormalNONEPMercy Health Allen Hospital Comment on above:Performed By: #### XENIA, 84724-6, , CBCA #### [facility] ([id number]) [address] [place], [place] [address]Gqlucubeg/100 WBC (Bld)0.2 %NormalCleveland Clinic Akron General Comment on above:Performed By: #### XENIA, 10984-7, , CBCA #### [facility] ([id number]) [address] [place], [place] [address]Balquxjbsis (Bld) [#/Vol]0.0 10*3/uLNormal0.0-0.4[facility] GeneralComment on above:Performed By: #### XENIA, 74941-2, , CBCA #### [facility] ([id number]) [address] [place], [place] [address]Vyxbyuqsjkl/100 WBC (Bld)0.0 %[facility] Comment on above:Performed By: #### CMP, 74084-8, , CBCA #### [facility] ([id number]) [address] [facility] [place], [place] [address]Qnvqzxavtrm distribution width (RBC) [Ratio]22.0 %High11.5-15.0 ProMMercy Health Clermont HospitalComment on above:Performed By: #### CMP, 31670-5, , CBCA #### [facility] ([id number]) [address] [facility] [place], [place] [address]Yiavzwnqii (Bld) [Volume fraction]27.6 %Shr06-62PedByrbqdCentervilleComment on above:Performed By: #### XENIA, 86067-6, , CBCA #### [facility] ([id number]) [address] [facility] [place], [place] [address]Yfsvrgtgll (Bld) [Mass/Vol]8.8 g/dLLow11.7-15.5PMercy Health Allen HospitalComment on above:Performed By: #### CMP, 44927-7, , CBCA #### [facility] ([id number]) [address] [facility] [place], [place] [address]Izwzzzufrns (Bld) [#/Vol]0.7 10*3/uLLow1.0-3.5PMercy Health Allen HospitalComment on above:Performed By: #### CMP, 22343-9, , CBCA #### [facility] ([id number]) [address] [facility] [place], [place] [address]Pqhziqgxika/100 WBC (Bld)17.8 %NormalCleveland Clinic Akron General Comment on above:Performed By: #### CMP, 31342-8, , CBCA #### [facility] ([id number]) [address] [facility] [place], [place] [address]LAC (RBC) [Entitic mass]27.3 gcIzrdox60-33PhzHgmpvtCentervilleComment on above:Performed By: #### CMP, 54573-7, 21246-9, CBCA #### [facility] ([id number]) [address] [place], [place] [address]ZVCO (RBC) [Mass/Vol]31.9 g/tRNay89-58UmxPlmyxoCleveland Clinic Akron General Comment on above:Performed By: #### CMP, 09210-5, 42232-1, CBCA #### [facility] ([id number]) [address] [place], [place] [address]KPD (RBC) [Entitic vol]86 qDIzjtiz45-216KkbQjiwxu Baypark HospitalComment on above:Performed By: #### CMP, 81171-6, 76559-3, CBCA #### [facility] ([id number]) [address] [place], [place] [address]Lvofwambr (Bld) [#/Vol]0.2 10*3/uLNormal0-0.9[facility] GeneralComment on above:Performed By: #### CMP, 75791-9, , CBCA #### [facility] ([id number]) [address] [place], [place] [address]Ozssfamzv/100 WBC (Bld)4.7 %[facility] Comment on above:Performed By: #### CMP, 84463-7, 73071-7, CBCA #### [facility] ([id number]) [address] [place], [place] [address]Itrdekytrpd/100 WBC (Bld)77.3 %[facility] Comment on above:Performed By: #### CMP, 77734-8, 43493-3, CBCA #### [facility] ([id number]) [address] [place], [place] [address]Qcdiuyho mean volume (Bld) [Entitic vol]7.6 fLNormal7-12 ProMMercy Health Clermont HospitalComment on above:Performed By: #### CMP, 50710-5, 81764-7, CBCA #### [facility] ([id number]) [address] [place], [place] [address]Morqahexg (Bld) [#/Vol]248 10*3/gDYeesgv782-341MfyPjognt Baypark HospitalComment on above:Performed By: #### XENIA, 99883-5, , CBCA #### [facility] ([id number]) [address] [place], [place] [address]ZKK COUNT3.22 X10E12/LLow3.80-5.20Pro[place] Comment on above:Performed By: #### XENIA, 96409-9, 27011-2, CBCA #### [facility] ([id number]) [address] [place], [place] [address]MQF (Bld) [#/Vol]4.2 10*3/uLNormal4.0-11.0ProCentervilleComment on above:Performed By: #### XENIA, 23709-6, , CBCA #### [facility] ([id number]) [address] [place], [place] [address]ZQJJLIKIXAJXK METABOLIC PANELon 33-30-1554Zvgfqfi [Mass/Vol]2.4 g/dLLow3.2-5.3PMercy Health Allen HospitalComment on above:Performed By: #### XENIA, 87110-7, , CBCA #### [facility] ([id number]) [address] [place], [place] [address]JAZ [Catalytic activity/Vol]61 U/ISacues34-652XtwOrnexjCentervilleComment on above:Performed By: #### XENIA, 81345-3, 01626-4, CBCA #### [facility] ([id number]) [address] [place], [place] [address]PXN [Catalytic activity/Vol]20 U/LNormal0-31PMercy Health Allen HospitalComment on above:Performed By: #### XENIA, 63740-0, 24060-3, CBCA #### [facility] ([id number]) [address] [place], [place] [address]Ayqyc gap [Moles/Vol]6 mmol/LNormal5-15ProCentervilleComment on above:Performed By: #### XENIA, 01593-1, , CBCA #### [facility] ([id number]) [address] [facility] [place], [place] [address]XKA [Catalytic activity/Vol]25 U/LNormal0-41[facility] GeneralComment on above:Performed By: #### XENIA, 33861-9, , CBCA #### [facility] ([id number]) [address] [facility] [place], [place] [address]Tyuvsqved [Mass/Vol]0.6 mg/dLNormal0.3-1.2PMercy Health Allen HospitalComment on above:Performed By: #### XENIA, 74839-5, , CBCA #### [facility] ([id number]) [address] [place], [place] [address]Bqpeekb [Mass/Vol]8.2 mg/dLLow8.5-10.5PMercy Health Allen Hospital Comment on above:Performed By: #### XENIA, 91735-3, , CBCA #### [facility] ([id number]) [address] [place], [place] [address]Xzquepmz [Moles/Vol]115 mmol/CAfgp71-037VoiRmvekhCentervilleComment on above:Performed By: #### XENIA, 89875-2, , CBCA #### [facility] ([id number]) [address] [place], [place] [address]IV2 [Moles/Vol]24 mmol/AMihxzl73-85MvvNpzhbqMercy Health Allen Hospital Comment on above:Performed By: #### XENIA, 99245-4, , CBCA #### [facility] ([id number]) [address] [place], [place] [address]Nptasvpmds [Mass/Vol]1.19 mg/dLHigh0.40-1.00ProCentervilleComment on above:Result Comment: METHOD TRACEABLE TO IDMS STANDARD Performed By: #### XENIA, 84318-5, , CBCA #### [facility] ([id number]) [address] [place], [place] [address]DRO/1.73 sq M.predicted among non-blacks MDRD (S/P/Bld) [Vol rate/Area]52 mL/min/{1.73_m2}Low>59ProCentervilleComment on above: Result Comment: Reported eGFR is based on the CKD-EPI 2020 equation that does not use a race coefficient.Performed By: #### XENIA, 83876-5, , CBCA #### [facility] ([id number]) [address] [place], [place] [address]Ynwbvwn [Mass/Vol]95 mg/mKImdbtz89-12WdaEyrqsiCleveland Clinic Akron General Comment on above:Performed By: #### XENIA, 12398-3, , CBCA #### [facility] ([id number]) [address] [place], [place] [address]Eamceaqwh [Moles/Vol]3.7 mmol/LNormal3.5-5.0ProCentervilleComment on above:Performed By: #### XENIA, 96245-5, , CBCA #### [facility] ([id number]) [address] [place], [place] [address]Uvjbvde [Mass/Vol]6.0 g/dLNormal6.0-8.0ProCentervilleComment on above:Performed By: #### XENIA, 28984-0, , CBCA #### [facility] ([id number]) [address] [place], [place] [address]Adzapb [Moles/Vol]145 mmol/XDmwbmb967-779SpdDsnbqu [facility]park HospitalComment on above:Performed By: #### XENIA, 21079-3, , CBCA #### [facility] ([id number]) [address] [place], [place] [address]Pltq nitrogen [Mass/Vol]8 mg/dLNormal5-23ProCentervilleComment on above:Performed By: #### XENIA, 55760-2, , CBCA #### [facility] ([id number]) [address] [place], [place] [address]Gzhjkog Glucometer (BldC) [Mass/Vol]on 86-05-2966Bjrwbzx [Mass/Vol]137 mg/mYMybv00-82YipGhbwnrCentervilleGlucose [Mass/Vol]88 mg/dL Qxhmkq90-72OzsMurend Baypark HospitalGlucose [Mass/Vol]102 mg/uUKmyw34-28 Pro[facility] Tuberculosis HospitalMAGNESIUMon 90-47-3146Qgishdknw [Mass/Vol]2.4 mg/dL Normal1.8-2.6ProCentervilleComment on above:Performed By: #### XENIA, 45656-1, , CBCA #### [facility] ([id number]) [address] [place], [place] [address]Dfoskklrb [Mass/Vol]1.9 mg/dLNormal1.8-2.6ProCentervilleComment on above:Performed By: #### XENIA, 40124-3, , CBCA #### [facility] ([id number]) [address] [place], [place] [address]CDXHXREJXhv 01-62-7136Itapgmlln [Moles/Vol]4.1 mmol/LNormal 3.5-5.0ProCentervilleComment on above:Performed By: #### XENIA, 10096- 0, , CBCA #### [facility] ([id number]) [address] [place], [place] [address]Btylnjvph [Moles/Vol]3.6 mmol/LNormal3.5-5.0ProCentervilleComment on above:Performed By: #### XENIA, 92516-2, , CBCA #### [facility] ([id number]) [address] [place], [place] [address]QSKSDMGTPHVNbc 60-00-0679Kckzidsuomyi [Mass/Vol]262 mg/dLHigh 27-150ProCentervilleComment on above:Performed By: #### CMP, 06330- 0, 38677-6, CBCA #### [facility] ([id number]) [address] [facility] [address] [place], [place] [id number] CHEST 1 VWon 69-02-4207YW CHEST 1 VWXR CHEST 1 VW HISTORY: [...] Francisco Javier Aceves MD on 04/16/2023 5:28 AMNormalCleveland Clinic Akron GeneralARTERIAL BLOOD GASon 45-47-2565CPVXB'S TESTPassNormalCleveland Clinic Akron GeneralComment on above:Performed By: #### ABG #### [facility] ([id number]) [address] [facility] [address] [place], [place] [id number],DEFICIT2.0 MMOL/LNormal0.0-2.0[facility] Comment on above:Performed By: #### ABG #### [facility] ([id number]) [address] [facility] [address] [place], [place] [address]Nyvq kixyvbcsdmy80.6 [degF]Phpbsk20.0[facility] Comment on above:Performed By: #### ABG #### [facility] ([id number]) [address] [place], [place] [address]GBN9 (Bld) [Moles/Vol]24.5 mmol/TSyvgpd27-83ZpwQbisxmCentervilleComment on above:Performed By: #### ABG #### [facility] ([id number]) [address] [place], [place] [address]IVUC. O2 CONC.60 %NormalProCentervilleComment on above:Performed By: #### ABG #### [facility] ([id number]) [address] [place], [place] [address]Fpqzvp (Bld) [Partial pressure]79 mm[Hg]Xua91-612UawHneubuCentervilleComment on above:Performed By: #### ABG #### [facility] ([id number]) [address] [place], [place] [address]Duvugx saturation in Blood94.0 %Normal>90ProCentervilleComment on above:Performed By: #### ABG #### [facility] ([id number]) [address] [place], [place] [address]PJJUZV SOURCEVentNormalProCentervilleComment on above:Performed By: #### ABG #### [facility] ([id number]) [address] [place], [place] [address]ENW201.9 FHOPNjno74-16PduXxqgegCentervilleComment on above:Performed By: #### ABG #### [facility] ([id number]) [address] [place], [place] [address]eD (Bld)7.317 [pH]Low7.350-7.450Pro[place] Comment on above:Performed By: #### ABG #### [facility] ([id number]) [address] [place], [place] [address]PBKKTO SITELRadNormalProCentervilleComment on above: Performed By: #### ABG #### [facility] ([id number]) [address] [place], [place] [address]AVDJOK TYPEARTERIALNormalProCentervilleComment on above:Performed By: #### ABG #### [facility] ([id number]) [address] [place], [place] [address]QIUUW CULTUREon 14-18-9239Txgolfxq identified Aer cx Nom (Bld) CULTURE RESULTS NO GROWTH 5 DAYSNormalProCentervilleBacteria identified Aer cx Nom (Bld)CULTURE RESULTS NO GROWTH 5 DAYSNormalProMetrohealth [facility] HospitalCBC AND AUTO DIFFon 04-15-2023 ABSOLUTE BASOPHIL0.0 X10E9/LNormal0.0-0.2PMercy Health Allen HospitalComment on above:Performed By: #### XENIA, 09359-2, , CBCA #### [facility] ([id number]) [address] [facility] [place], [place] [address]ZPVJYOHY NEUTROPHIL1.9 X10E9/LNormal1.5-6.6ProCentervilleComment on above:Performed By: #### XENIA, 28190-3, , CBCA #### [facility] ([id number]) [address] [facility] [place], [place] [address]Lscldtxavxua Ql (Bld)2+AbnormalNONEPMercy Health Allen Hospital Comment on above:Performed By: #### XENIA, 35187-6, , CBCA #### [facility] ([id number]) [address] [facility] [place], [place] [address]Vbexteobq/100 WBC (Bld)0.2 %NormalCleveland Clinic [facility] General Comment on above:Performed By: #### XENIA, 72098-7, , CBCA #### [facility] ([id number]) [address] [facility] [place], [place] [address]Bahsadlzmsl (Bld) [#/Vol]0.0 10*3/uLNormal0.0-0.4[facility] GeneralComment on above:Performed By: #### XENIA, 88382-3, , CBCA #### [facility] ([id number]) [address] [facility] [place], [place] [address]Fafqqqpoqmc/100 WBC (Bld)0.0 %NormalCleveland Clinic [facility]ron General Comment on above:Performed By: #### XENIA, 82445-2, , CBCA #### [facility] ([id number]) [address] [place], [place] [address]Slfwomdbqsc distribution width (RBC) [Ratio]22.0 %High11.5-15.0 ProMedicSelect Medical Specialty Hospital - Cleveland-FairhillComment on above:Performed By: #### XENIA, 26440-8, , CBCA #### [facility] ([id number]) [address] [place], [place] [address]Iwmczjadre (Bld) [Volume fraction]28.7 %Llq33-02AlzPlrjrhCleveland Clinic Akron GeneralComment on above:Performed By: #### CMP, 27627-0, 69241-6, CBCA #### [facility] ([id number]) [address] [place], [place] [address]Asyofskdub (Bld) [Mass/Vol]9.1 g/dLLow11.7-15.5PMercy Health Allen HospitalComment on above:Performed By: #### CMP, 65854-1, , CBCA #### [facility] ([id number]) [address] [place], [place] [address]Nppfnapodso (Bld) [#/Vol]0.6 10*3/uLLow1.0-3.5PMercy Health Allen HospitalComment on above:Performed By: #### CMP, 37960-6, , CBCA #### [facility] ([id number]) [address] [place], [place] [address]Pqpvksjwnax/100 WBC (Bld)22.8 %NormalCleveland Clinic [facility]ron General Comment on above:Performed By: #### CMP, 66621-5, , CBCA #### [facility] ([id number]) [address] [place], [place] [address]MCG (RBC) [Entitic mass]27.1 mtJwbwxj37-19KjlNyznwmCleveland Clinic Akron GeneralComment on above:Performed By: #### CMP, 13205-3, , CBCA #### [facility] ([id number]) [address] [place], [place] [address]SSJP (RBC) [Mass/Vol]31.8 g/iUDhi51-36CaqOrasidCleveland Clinic Akron General Comment on above:Performed By: #### CMP, 70447-1, , CBCA #### [facility] ([id number]) [address] [place], [place] [address]KHC (RBC) [Entitic vol]85 kMRyyhaz13-046VhpXijlzn Bay[facility] HospitalComment on above:Performed By: #### CMP, 81249-9, 40590-5, CBCA #### [facility] ([id number]) [address] [place] [place], [place] [address]Wiluadocf (Bld) [#/Vol]0.2 10*3/uLNormal0-0.9ProCentervilleComment on above:Performed By: #### CMP, 22094-4, 57797-6, CBCA #### [facility] ([id number]) [address] [place], [place] [address]Yzcloweqt/100 WBC (Bld)7.7 %NormalCleveland Clinic Akron General Comment on above:Performed By: #### CMP, 78864-6, 44228-8, CBCA #### [facility] ([id number]) [address] [place], [place] [address]Rgaqxugahxz/100 WBC (Bld)69.3 %NormalCleveland Clinic [facility] General Comment on above:Performed By: #### XENIA, 93332-0, , CBCA #### [facility] ([id number]) [address] [place], [place] [address]Oaqqcnyb mean volume (Bld) [Entitic vol]7.5 fLNormal7-12 [facility] HospitalComment on above:Performed By: #### CMP, 00803-4, 34751-6, CBCA #### [facility] ([id number]) [address] [place], [place] [address]Gpcixkrfm (Bld) [#/Vol]222 10*3/jSXukqfy906-431CorZzimps [facility]park HospitalComment on above:Performed By: #### CMP, 84928-9, 06801-2, CBCA #### [facility] ([id number]) [address] [place], [place] [address]VNA COUNT3.36 X10E12/LLow3.80-5.20[place] Comment on above:Performed By: #### XENIA, 38245-3, , CBCA #### [facility] ([id number]) [address] [place], [place] [address]NVZ (Bld) [#/Vol]2.7 10*3/uLLow4.0-11.0ProCentervilleComment on above:Performed By: #### CMP, 15346-3, , CBCA #### [facility] ([id number]) [address] [place], [place] [address]UCJXVGPBWGXDA METABOLIC PANELon 71-12-3269Awdopzj [Mass/Vol]2.4 g/dLLow3.2-5.3ProMedAkron Children's HospitalComment on above:Performed By: #### XENIA, 80136-6, , CBCA #### [facility] ([id number]) [address] [place], [place] [address]WXU [Catalytic activity/Vol]63 U/ZXfasxx27-555QdiAzwdwlCentervilleComment on above:Performed By: #### XENIA, 92022-5, , CBCA #### [facility] ([id number]) [address] [place], [place] [address]KWE [Catalytic activity/Vol]18 U/LNormal0-31ProMedAkron Children's HospitalComment on above:Performed By: #### CMP, 92547-1, , CBCA #### [facility] ([id number]) [address] [place], [place] [address]Wbbno gap [Moles/Vol]6 mmol/LNormal5-15ProCentervilleComment on above:Performed By: #### CMP, 92878-2, , CBCA #### [facility] ([id number]) [address] [place], [place] [address]USZ [Catalytic activity/Vol]24 U/LNormal0-41ProMetrohealth [facility] HospitalComment on above:Performed By: #### CMP, 70250-4, 14981-2, CBCA #### [facility] ([id number]) [address] [place], [place] [address]Uxllveeoq [Mass/Vol]0.7 mg/dLNormal0.3-1.2PMercy Health Allen HospitalComment on above:Performed By: #### XENIA, 07147-1, 13493-6, CBCA #### [facility] ([id number]) [address] [place], [place] [address]Xzzvtby [Mass/Vol]7.8 mg/dLLow8.5-10.5PMercy Health Allen Hospital Comment on above:Performed By: #### XENIA, 89257-7, , CBCA #### [facility] ([id number]) [address] [place], [place] [address]Exzowuow [Moles/Vol]115 mmol/TDfks96-681HrdYlpqznCentervilleComment on above:Performed By: #### XENIA, 69961-0, , CBCA #### [facility] ([id number]) [address] [place], [place] [address]QP6 [Moles/Vol]25 mmol/ZYkrmec80-62EjhVhuecjMercy Health Allen Hospital Comment on above:Performed By: #### XENIA, 44608-6, , CBCA #### [facility] ([id number]) [address] [place], [place] [address]Zixcwencol [Mass/Vol]1.43 mg/dLHigh0.40-1.00[facility] GeneralComment on above:Result Comment: METHOD TRACEABLE TO IDMS STANDARD Performed By: #### XENIA, 29850-3, , CBCA #### [facility] ([id number]) [address] [place], [place] [address]MTT/1.73 sq M.predicted among non-blacks MDRD (S/P/Bld) [Vol rate/Area]42 mL/min/{1.73_m2}Low>59ProCentervilleComment on above: Result Comment: Reported eGFR is based on the CKD-EPI 2020 equation that does not use a race coefficient.Performed By: #### XENIA, 53435-5, , CBCA #### [facility] ([id number]) [address] [place], [place] [address]Vfgkftx [Mass/Vol]118 mg/vPLymc59-86RzxWtfamyCleveland Clinic [facility] General Comment on above:Performed By: #### XENIA, 96842-6, 51564-5, CBCA #### [facility] ([id number]) [address] [place], [place] [address]Wcquaedde [Moles/Vol]2.8 mmol/LLow3.5-5.0ProCentervilleComment on above:Performed By: #### XENIA, 33799-4, , CBCMindi #### [facility]. [facility] ([id number]) [address] [place], [place] [address]Szpjnak [Mass/Vol]6.0 g/dLNormal6.0-8.0ProCentervilleComment on above:Performed By: #### XENIA, 22145-7, , CBCA #### [facility] ([id number]) [address] [place], [place] [address]Hodkbb [Moles/Vol]146 mmol/QMhofie278-188CdgXijiqh Baypark HospitalComment on above:Performed By: #### XENIA, 08621-8, , CBCA #### [facility] ([id number]) [address] [place], [place] [address]Gtul nitrogen [Mass/Vol]11 mg/dLNormal5-23ProCentervilleComment on above:Performed By: #### XENIA, 55975-5, , CBCA #### [facility] ([id number]) [address] [place], [place] [address]Izblzzp Glucometer (BldC) [Mass/Vol]on 80-29-3426Mwypfyw [Mass/Vol]118 mg/kWImbi79-14HgfDtemtwCentervilleGlucose [Mass/Vol]83 mg/dL Joeqsx09-62CszBboofqCentervilleGlucose [Mass/Vol]112 mg/qKJzqj40-06 [facility] GeneralGlucose [Mass/Vol]128 mg/sWWcsb19-13LoxHiuhjhCentervilleLOWER RESPIRATORY CULTUREon 94-70-2542Godnrfqa identified Respiratory culture Nom (Sput)GRAM STAIN 0 to 1 WHITE BLOOD CELLS/LPF 0 to 1 SQUAMOUS EPITHELIAL CELLS/LPF 0 CILIATED EPITHELIAL CELLS/LPF FEW YEAST CULTURE RESULTS RARE KLEBSIELLA PNEUMONIAE RARE YEAST RARE YEAST VARIANT Jie Garcia, [employer]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 ([id number]) [address] [place] [id number] PCR NASALon 65-24-0278HNOB DNA HUBERT+probe Ql (Unsp spec) NegativeNormalNEGProCentervilleComment on above:Performed By: #### XENIA, 60846-2, 16014-4, CBCA #### [facility] ([id number]) [address] [place] [id number] 41-05-5504Gxkblrygu [Moles/Vol]3.8 mmol/LNormal 3.5-5.0ProCentervilleComment on above:Performed By: #### XENIA, 88492- 0, 40053-9, CBCA #### [facility] ([id number]) [address] [facility] [place] [address]Qmeuzyaye [Moles/Vol]3.5 mmol/LNormal3.5-5.0ProCentervilleComment on above:Performed By: #### XENIA, 85919-3, 37777-2, CBCA #### [facility] ([id number]) [address] [facility] [place], [place] [address]Wytuzaowehhya [place] [Mass/Vol]on 78-36-3692EKWATKAYBRBCL5.57 ng/mL High<0.05ProCentervilleComment on above:Result Comment: NOTE <0.50 ng/mL - Low risk of severe sepsis and/or septic shock. <2.00 ng/mL - Recommend retesting within 6-24 hours. >2.00 ng/mL - High risk of sepsis and/or septic shock.Performed By: #### XENIA, 41010-5, 12358-9, CBCA #### [facility] ([id number]) [address] [facility] [place], [place] [address]VY CHEST 1 VWon 99-17-4290QGFR-CoV-2 (COVID-19) RNA HUBERT+probe Ql (Unsp spec)XR CHEST [...] Francisco Javier Aceves MD on 04/15/2023 5:56 AMNormalProCentervilleXR lumbar spine 6V w bendingon 63-67-4824HA lumbar spine 6V w bending [facility] Main [address] [address] XRay Report Signed Patient: Monet Recinos MR#: [id number] 80 : 1960 Acct:[id number] Age/Sex: 62 / F ADM Date: 12/11/22 [...] Marlyn Samayoa M.D.12/11/2022 10:23 AM Dictation Location: [place] [address] Transcribed By: [facility] 12/11/22 1023 Dictated By: Marlyn Samayoa MD 12/11/22 1020 Signed By: 12/11/22 [facility] head/brain wo/w [place] 72-74-1668IK head/brain wo/w [facility] Main [place] [address] [place] [address] MRI Report Signed Patient: Monet Recinos MR#: [id number] 80 : 1960 Acct:[id number] Age/Sex: 61 / F ADM Date: 01/24/22 Loc: MR Room: Type: [facility] CLI Attending Dr: Eric Huerta DO [...] Jamie Oconnor M.D.01/24/2022 3:41 PM Dictation Location: [place] [address] Transcribed By: [facility] 01/24/22 1541 Dictated By: Jamie Oconnor II, MD 01/24/22 1537 Signed By: 01/24/22 [facility] [place].Auto Diff 1on 01-07-2018 Auto Baso %0.6 %Normal0.2-2.0[facility] Memorial HospitalComment on above:Performed By: #### 9998258, 2620534, 8098845840, 3651392376, 1522455678, 085216989, 8603924, 18127312 ####[facility] (DEFAULT)[address] [place] [address] Auto [place] %6 %Normal1-12[facility] HospitalComment on above:Performed By: #### 9164741, 3159088, 3626560918, 8761856175, 1664312851, 803213933, 2139809, 11857414 ####[facility] (DEFAULT)[address] [place] [address] Auto Neut %54 %Qeatrk77-63Lqdsmtjm HospitalComment on above:Performed By: #### 8033171, 4984790, 7367257979, 2209755781, 8945868819, 654948127, 7916117, 36317563 ####[facility] (DEFAULT)[address] [place], [place] [address] Baso Abs#0.0 e47Qppyuz2.0-0.2[facility]uder HospitalComment on above:Performed By: #### 2320505, 4588794, 8744325345, 4830395614, 4630399302, 432625014, 8076723, 20046754 ####[facility] (DEFAULT)[address] [place], [place] [address] Eos Abs#0.[address]fb7[address] [facility] HospitalComment on above:Performed By: #### 4442416, 7075334, 5251073101, 2464535115, 0155136960, 914460189, 9157107, 61797744 ####[facility] (DEFAULT)[address] [place] [address] Eosinophils/100 WBC Auto (Bld)1.4 %Normal0.9-4.0[facility] HospitalComment on above:Performed By: #### 3194545, 0174489, 8814091314, 8750489181, 3896102163, 195544483, 0160596, 63771902 ####[facility] (DEFAULT)[address] [place] [address]Nnorfsxeymb Auto #/vol (Bld)2.8 z72Eyofxh6.3-2.9 [facility] HospitalComment on above:Performed By: #### 2815278, 9603149, 7312525996, 8162879245, 3020833378, 715282148, 4178528, 22532270 ####[facility] (DEFAULT)[address] [place] [address]Ademtmxeptt/100 WBC Auto (Bld)39 %Twfkse93-32Ubgdurlx HospitalComment on above:Performed By: #### 0943159, 3250497, 8989782116, 4626744952, 8757742763, 032732689, 3791062, 05435017 ####[facility] (DEFAULT)[address] [place] [address] [place] Abs#0.[address] [facility] HospitalComment on above:Performed By: #### 2514678, 1730737, 5329610542, 8472101487, 5600619826, 072586998, 1314002, 10514451 ####[facility] (DEFAULT)[address] [place] [address] Neut Abs#3.9 h77Gvdeqa7.5-9.2[facility] HospitalComment on above:Performed By: #### 1926349, 5143645, 6347003304, 5692801856, 5785390077, 727593560, 9643409, 32371106 ####[facility] (DEFAULT)[address] [place] [address] Acet Levelon 76-67-6529Zcxhlgmimqqbg mass conc<11Bgwphj04-47Xvyddelv Hospital Comment on above:Performed By: #### 9571141, 3907784, 5439073904, 2536632375, 9304635703, 350851267, 0557306, 13897789 ####[facility] (DEFAULT)[address] [place] [address]AOE w/ Auto Diffon 52-41-7539Pqbboesycgg distribution width Auto Ratio (RBC)17.0 %High11.5-15.0[facility] HospitalComment on above:Performed By: #### 5971943, 5749578, 2754341991, 5641778558, 8037649404, 066065846, 3234851, 74941502 ####[facility] (DEFAULT)[address] [place], [place] [address]Hematocrit Auto Volume Fraction (Bld)41.2 % High33.7-40.4[facility] HospitalComment on above:Performed By: #### 0264223, 3257883, 2872094686, 4856993189, 6458526503, 291742905, 9027242, 88641031 ####[facility] (DEFAULT)[address] [place], [place] [address]Hemoglobin mass conc (Bld)14.0 g/tAKeukmk62.3-15.9[facility] HospitalComment on above: Performed By: #### 3952792, 5648320, 2947632202, 9097672470, 0803390816, 322449375, 6441793, 71090463 ####[facility] (DEFAULT)[address] [place], [place] [address]Man Diff?AutoNormalMartins Ferry Hospital HospitalComment on above:Performed By: #### 9364909, 6835468, 2633163039, 8850387764, 8174155039, 100679069, 2897670, 57230114 ####[facility] (DEFAULT)[address] [place], [place] [address]H Auto Entitic mass (RBC)29 iwGukfsx89-88Vgvehrox HospitalComment on above:Performed By: #### 4535727, 2305579, 5396722531, 6028045726, 4154689984, 107240986, 7741550, 11676190 ####[facility] (DEFAULT)[address] [place], [place] [address]HC Auto mass conc (RBC)34 g/dL Mefruw34-28Ejmywjgx HospitalComment on above:Performed By: #### 9012397, 1873030, 5132476881, 0532173539, 6037289232, 636445178, 3222915, 76830694 ####[facility] (DEFAULT)[address] [place], [place] [address]V Auto Entitic volume (RBC)84 bCAehfcc35-694Vraayldv HospitalComment on above:Performed By: #### 6560775, 4257276, 1622176246, 6731707335, 5743870013, 563964413, 3676006, 00524721 ####[facility] (DEFAULT)[address] [place] [address]Czffkdfo mean volume Auto Entitic volume (Bld)9.8 fLNormal6.3-10.2 [facility] HospitalComment on above:Performed By: #### 5001880, 2953228, 6727828941, 3520301277, 4973980558, 506044123, 6922287, 35634182 ####[facility] (DEFAULT)[address] [place] [address]Mrnjeofur Auto #/vol (Bld)268 r42Orvppf988-592Bttdumar HospitalComment on above:Performed By: #### 3103491, 5497675, 4349387118, 6037484953, 8503444748, 118458954, 9502218, 10249720 ####[facility] (DEFAULT)[address] [place] [address] RBC Auto #/vol (Bld)4.90 p78Btkgwl0.70-5.30[facility] HospitalComment on above: Performed By: #### 7769059, 9307075, 3427979525, 6051388973, 6428977951, 006213064, 4291700, 69511023 ####[facility] (DEFAULT)[address] [place] [address]BXL Auto #/vol (Bld)7.2 f25Naublui Interpretation CodeMartins Ferry Hospital HospitalComment on above:Performed By: #### 5611361, 3906445, 8172646547, 4373632955, 7936366755, 235814161, 7002652, 66841008 ####[facility] (DEFAULT)[address] [place] [address]22[address]MCX Standardon 91-11-1029Dief Total0.2 mg/dLLow0.3-1.2[facility]rday[facility] HospitalComment on above: Performed By: #### 9666251819, 6660420913 ####[facility] (DEFAULT)[address] [place] [address] 41929vZLG Non AA>60Invalid Interpretation Code [facility] HospitalComment on above:Performed By: #### 0058527746, 7766105894 ####[facility] (DEFAULT)[address] [place] [address] 75148pMVW AA>60 Invalid Interpretation CodeMartins Ferry Hospital HospitalComment on above:Result Comment: Chronic Kidney disease could be indicated at eGFRs of less than 60 ml/min/1.73m2. Kidney Failure is indicated at less than 15 ml/min/1.73m2 Performed By: #### 9821873175, 8408221413 ####[facility] (DEFAULT)[address] [place] [address]Genuwnw mass conc3.8 g/dLNormal3.5-5.0 [facility] HospitalComment on above:Performed By: #### 1451812194, 0984462425 ####[facility] (DEFAULT)[address] [place] [address] Albumin/Globulin mass ratio1.1 {ratio}Low1.4-2.6Mthe [facility] HospitalComment on above:Performed By: #### 7421355373, 0305986144 ####[facility] (DEFAULT)[address] [place] [address] 04721Xic Phos81 IU/QPgyrie03-00 [facility] HospitalComment on above:Performed By: #### 2862419081, 2644479680 ####[facility] (DEFAULT)[address] [place] [address] 39841OML/SGPT 15.0 IU/AOhzylc98.0-54.0[facility] HospitalComment on above:Performed By: #### 5016010745, 2884463237 ####[facility] (DEFAULT)[address] [place] [address] 40653Fmsqi gap 3 molar conc13.0 mmol/LNormal5.0-19.0[facility] HospitalComment on above:Performed By: #### 4757224336, 9441413939 ####[facility] (DEFAULT)[address] [place] [address] 68721CPS/SGOT18 IU/LNormal 15-41[facility] HospitalComment on above:Performed By: #### 7930132052, 5669484059 ####[facility] (DEFAULT)[address] [place] [address] 95536Dtpccgt mass conc8.8 mg/dLLow8.9-10.3Mthe [facility] HospitalComment on above:Performed By: #### 9326632183, 3043321304 ####[facility] (DEFAULT)[address] [place] [address] 73313Cffccoup molar ywbm378 mmol/ZEgbdvx591-110Dkohlhpu Hospital Comment on above:Performed By: #### 7898038542, 9810254322 ####[facility] (DEFAULT)[address] [place] [address] 08487XX1 molar conc23 mmol/LNormal 21-32[facility] HospitalComment on above:Performed By: #### 8764689852, 4457605593 ####[facility] (DEFAULT)[address] [place] [address] 19622 Creatinine mass conc0.77 mg/dLNormal0.60-1.30[facility] HospitalComment on above: Performed By: #### 1107847046, 0415792812 ####[facility] (DEFAULT)[address] [place] [address] 26260Nuxvnnwt Calculated mass conc (S)3.6 g/dL Normal1.5-4.3Mthe [facility] HospitalComment on above:Performed By: #### 4243055099, 9226634559 ####[facility] (DEFAULT)[address] [place] [address] 81457Ghqsafc mass conc91.0 mg/iRNjkeln52.0-118.0[facility] HospitalComment on above:Performed By: #### 7199697326, 2689349305 ####[facility] (DEFAULT)[address] [place] [address] 65265Goswljxpow024 mOsm/LInvalid Interpretation CodeMartins Ferry Hospital HospitalComment on above:Performed By: #### 9425380864, 8783144740 ####[facility] (DEFAULT)[address] [place] [address] 12823Hjzabjxnl molar conc4.0 mmol/LNormal3.6-5.1M[facility] Comment on above:Performed By: #### 1537703544, 8791463268 ####[facility] (DEFAULT)[address] [place] [address] 22758Kjtpqwi mass conc7.4 g/dLNormal 6.5-8.1MOhioHealth Pickerington Methodist HospitalComment on above:Performed By: #### 7115142845, 4273245251 ####[facility] (DEFAULT)[address] [place] [address] 65[address]Syebxf molar bvuj105.0 mmol/QAegfau210.0-144.0[facility] HospitalComment on above:Performed By: #### 2739255846, 4642130910 ####[facility] (DEFAULT)[address] [place] [address] 74296Raod nitrogen mass conc17 mg/dL Normal8-26[facility] HospitalComment on above:Performed By: #### 1134522194, 9709573328 ####[facility] (DEFAULT)[address] [place] [address] 01239Xebk nitrogen/Creatinine mass ratio22.0 mg/mgHigh4.6-16.2MOhioHealth [facility] Comment on above:Performed By: #### 2206924584, 2114616587 ####[facility] (DEFAULT)[address] [place] [address] 867[address]CN Clinical Summaryon 80-23-2608JV Clinical SummaryMartin Memorial Hospital - Emergency [address] [place] [address] ed Clinical SummaryPERSON INFORMATIONName: MONET RECINOS Age: 57 Years Sex: FEMALEDOB: [birth year] MRN: Acct#:Visit Reason: General medical; MEDICAL CLEARENCE Arrival: 01/07/18 13:27:00 Discharge: 01/07/18 15:22:00LOS: 000 01:55 Check In: 01/07/18 13:27:00 Checkout:01/07/18 15:22:00[address] [facility] [address]CVK: Provider, NonePROVIDER INFORMATIONProvider Role Assigned UnassignedRylee Gaxiola [...] Complaint from Nursing Triage Note : Chief Xwdsjfwow61/13/18 13:28 EDT Chief Complaint sent from [facility] for medical clearance, depressed/anxiety .History of Present Bfbcakm31-ppor-oxe female presents to the emergency department for medical clearance for psychiatr ic admission. Patient is feeling very depressed. She states she feels like she just wants to go to sleep and never wake up. She was seen at [facility] and will be admitted to [address]Review of SystemsConstitutional symptoms: No fever, no [...] risk.Documents reviewed: Emergency department nurses' notes, [facility] Counselling.Orders Launch OrdersLaboratory:Urinalysis with Culture, if [...] Lab Collect.Results review: Lab results : Lab Titmotiha78/13/18 14:19 EDT Sodium Level 138.0 mmol/L Potassium [...] % Auto Lymph % 39 % Auto [place] % 6 % Auto Eos % 1.4 % Auto Baso % 0.6 % Neut Abs# 3.9 x103/mcL Lymph Abs# 2.8 x103/mcL [place] Abs# 0.4 x103/mcL Eos Abs# 0.1 x103/mcL [...] then he is to be taken to [facility] for psychiatric admission. Patient with very [...] She will transport the patient directly to [address] as arrabnged by counsellor and accepted by Dr. Hackett.Impression and PlanDiagnosisSuicidal thoughts (TLQ12-CX R45.851, Discharge, Medical)Depression, major (SWA24-SP F32.9, Discharge, Medical)PlanDisposition: Transfer to other location:Time: 01/07/18 15:05:00, Facility name: [facility], Accepted by: Dr. Hackett, [address] [place] [address], Time 01/07/18 14 :50:00, Referral to [facility].Patient was given the following educational materials: Major Depressive Disorder, Adult.Follow up with: Report directly to Located [facility] main entrance to admitting office. You will be taken to [address] [place] [address] for admission by hospital personnel 01/07/2018 4:00 PM; .Counseled: Patient, Friend, Regarding diagnosis, Regarding diagnostic results, Regarding treatment plan, Regarding prescription, Patient indicated understanding of instructions.DISCHARGE INFORMATION:Discharge Disposition: Disch /Transfer to Psychiatric FacilityDischarge Location: [facility] -SdkyPATIENT EDUCATION INFORMATIONInstructions: Major Depressive Disorder, AdultFollow- Up:With: Address: When:Report directly to Located [facility] main entrance to admitting office. You will be taken to [address] [place] [address] for admission by hospital personnel 01/07/2018 4:00 PMDIAGNOSIS:Depression, major; Suicidal thoughtsPatient Understands:Comment:[facility] CampusED Note - Otheron 74-21-7418SR Note - [id number]- I faxed over patient information at this time to [facility],to Adrian Cordon,for medical clearance[Electronically Signed on: 01/07/2018 14:57 EDT] Familia Robertson[Verified on: 01/07/2018 14:57 EDT] Ailyn [facility] ED Note - Physicianon 78-72-6709WC Note - PhysicianPatient: MONET RECINOS : 57 years Sex: FEMALE : 64Associated Diagnoses: Suicidal thoughts; Depression, majorAuthor: Todd Gaxiola InformationTime seen: Date & time 01/07/18 13:40:00.History source: Patient.Arrival mode: Private vehicle.History limitation: None.Additional information: Chief Complaint from Nursing Triage Note : Chief Gwxleqwjn08/13/18 13:28 EDT Chief Complaint sent from [facility] for medical clearance, depressed/anxiety .History of Present Qmfqyhr94-gjjf-pxi female presents to the emergency department for medical clearance for psychiatric admission. Patient is feeling very depressed. She states she feels like she just wants to go to sleep and never wake up. She was seen at [facility] and will be admitted to [address]Review of SystemsConstitutional symptoms: No fever, no [...] Depression, suicide risk.Documentsreviewed: Emergency department nurses' notes, [facility].Orders Launch OrdersLaboratory:Urinalysis with Culture, if indicated [...] Lab Collect.Results review: Lab results : Lab Ztgqemzib32/13/18 14:19 EDT Sodium Level 138.0 mmol/L Potassium [...] % Auto Lymph % 39 % Auto [place] % 6 % Auto Eos % 1.4 % Auto Baso % 0.6 % Neut Abs# 3.9 x103/mcL Lymph Abs# 2.8 x103/mcL [place] Abs# 0.4 x103/mcL Eos Abs# 0.1 x103/mcL [...] then he is to be taken to [facility] for psychiatric admission. Patient with very [...] She will transport the patient directly to [address] as arrabnged by counsellor and accepted by Dr. Hackett.Impression and PlanDiagnosisSuicidal thoughts (EQC55-AZ R45.851, Discharge, Medical)Depression, major (MRY94-AP F32.9, Discharge, Medical)PlanDisposition: Transfer to other location: Time: 01/07/18 15:05:00, Facility name: [facility], Accepted by: Dr. Hackett, [address] [place] [address], Time 01/07/18 14:50:00, Referral to [facility].Patient was given the following educational materials: Major Depressive Disorder, Adult.Follow up with: Report directly to [facility] main entrance toadmitting office. You will be taken to [address] [place] [address] for admission by hospital personnel 01/07/2018 4:00 PM; .Counseled: Patient, Friend, Regarding diagnosis, Regarding diagnostic results, Regarding treatment plan, Regarding prescription, Patient indicated understanding of instructions.[Electronically Signed on: 01/07/2018 15:18 EDT] Rylee Gaxiola[Electro nically Signed on: 01/07/2018 20:18 EDT] Nadege Fernandez MD[Verified on: 01/07/2018 15:18 EDT] Rylee GaxiolaCleveland Clinic Union HospitalED Note-Nursingon 47-25-3225LA Note-NursingPt is transferred to [facility] per private vehicle to be admitted to [address] [place] [address] room 1, bed #2. Pt's friendis driving her to [facility].The pt andher friend were instructed to report to [facility] front lobby, admitting department and then the pt. will be escorted to [address] [place] [address] per Security. pt had not beloingins with her at this time but the clothining on her back.[facility] Note-NursingPt sitting on the cart in ER room 4. Upon entering the room the pt did establish eye contact but she is blunted and does not initiate any conversation. She will look at you and she will answer questions. She admits that she just came from [facility] and she states I don't feel right . Pt states she is taking her meds as she is supposed to but she feels like I want to go to sleep and not wake up Pt states she does feel depressed and she does not feel suicidal, she just feel sad. Her ROPEMAN is Dr. Rodriguez and she can not recall her Psychiatrist's name.Her friend brought lto the ER from [facility]. [facility] Patient Education Noteon 98-65-5315UF Patient Education NoteEducation MaterialsSelect Medical Specialty [facility] and Behavioral HealthMajor Depressive Disorder, AdultMajor depressive [...] by your health care provider.General instructions? Take phot-hkv-amjifqn and prescription medicines only as told by [...] This is important.Where to find more information:National [place] on Mental Illness? www.isadora.orgU.S. National [place] of Mental Health? www.[facility].nih.govNational Suicide Prevention Lifeline? 2-616-864-TALK (3774). This is free, 24-hour help.Contact a healthcare [...] Reviewed: 10/22/2016Elsevier Interactive Patient Education ? 2016 [employer].[facility] CampusED Patient Summary on 56-44-0542CV Patient SummaryMartin Memorial Hospital - Emergency [address] [place], [place] [id number] pATIENT DISCHARGE INSTRUCTIONSPatient InformationName: MONET RECINOS Age: 57 YearsDate of : [birth year]MRN:[id number] Visit: General medical; MEDICAL CLEARENCEArrival Time: 01/07/18 13:27:00Phone: Primary Care Physician: Provider, NoneAttending Physician: Nadege Fernandez MDComment:Visit Diagnosis:Diagnoses This Visit Depression, major (F32.9) General medical ([id number]) Suicidal thoughts (R41.447)If you received any narcotics, sedation, or any [...] any legal documentsWith: Address: When:Report directly to [facility] main entrance to admitting office. You will be taken to [address] [place] [address] for admission byhospital personnel 01/07/2018 4:00 PMMedication Information:The exam and treatment you received today in the [facility] Emergency Department were for an urgent problem and are not intended as complete care. It is important for you to follow up with a doctor, nurse practitioner, or physician?s retail sales assistant for ongoing care. If your symptoms [...] number so we can reach you if necessary.[facility] Departmenthas provided you with a complete list of medications post discharge. Please inform your grout pump operator/provider of your visit and for further [...] by your health care provider.General instructions? Take qbpv-yij-lylzlbu and prescription medicines only as told by [...] This is important.Where to find more information:National [place] on Mental Illness? www.isadora.orgU.S. National [place] of Mental Health? www.nimh.nih.govNational Suicide Prevention Lifeline? 1-870-717-TALK (8494). This is free, 24-hour help.Contact a health [...] Reviewed: 10/22/2016[employer] Patient Education ? 2017 [employer] Viruses or BacteriaWhat?s got you sick?Antibiotics [...] ServicesCenters for Disease Control and Prevention December 2013NoACMC Healthcare SystemEthanol.on 29-83-6798Ckirudv Level<5.8Ilpiwd7.0-5.0[facility] HospitalComment on above:Performed By: #### [id number], [id number] ####[facility] (DEFAULT)[address] [place] [address] 29241Vrwop Redon 96-28-1690Wtkc CollectedYesInvalid Interpretation [facility] HospitalComment on above:Performed By: #### [id number], [id number], [id number], [id number], [id number], [id number], [id number] ####[facility] (DEFAULT)[address] [place] [address] 88598Bcxfalpoynhk 01-07-2018 Salicylate Lvl<4.0Vddqlx4.0-30.0[facility] HospitalComment on above:Result Comment: Salicylate ranges less than 30 mg/dL are considered to be therapeutic. Levels greater than 30 mg/dL are considered toxic and levels greater than 60 mg/dL may be lethal.Performed By: #### [id number], [id number], [id number], [id number], [id number], [id number], [id number] ####[facility] (DEFAULT)[address] [place] [address] 51686QBJ w/ Reflex to FT4on 00-62-9912Vqlqkafalan Qn1.54 mcIU/mLNormal0.45-5.33[facility] HospitalComment on above:Result Comment: General Population (males and non- females, aged 21-88) 0.45 - 5.33 Females, 1st Trimester 0.05 - 3.70 Females, 2nd Trimester 0.31 - 4.35 Females, 3rd Trimester 0.41 - 5.18Performed By: #### [id number], [id number] ####[facility] (DEFAULT)[address] [place] [address] 93453Saeervmz Noteon 39-99-1864Hajimvqr Note [id number]#1.00OTGTSelect Medical Specialty [facility], Inc Triage Panel 12on 88-71-2940Dvfkjkp mass [facility] Comment on above:Performed By: #### [id number], [id number] ####[facility] (DEFAULT)[address] [place] [address] 19755Stgeuf Internal ControlPass [facility] CampusComment on above:Performed By: #### [id number], [id number] ####[facility] (DEFAULT)[address] [place] [address] 70502N Amph ScrNegativeHolzer Hospital HospitalComment on above:Performed By: #### [id number], [id number] ####[facility] (DEFAULT)[address] [place] [address] 96423G Carol ScrNegBluffton HospitalComment on above: Performed By: #### [id number], [id number] ####[facility] (DEFAULT)[address] [place] [address] 65985V Benzodia ScrACMC Healthcare System Comment on above:Performed By: #### [id number], [id number] ####[facility] (DEFAULT)[address] [place] [address] 60867N Cannab ScrnNegativeNormal [facility] HospitalComment on above:Performed By: #### [id number], [id number] ####[facility] (DEFAULT)[address] [place] [address] 02171K Cocaine ScrNegKindred Hospital Aurora HospitalComment on above:Performed By: #### [id number], [id number] ####[facility] (DEFAULT)[address] [place] [address] 23845I Methadone ScrNegativeNoOhioHealth Hardin Memorial Hospital HospitalComment on above: Performed By: #### [id number], [id number] ####[facility] (DEFAULT)[address] [place] [address] 62566K Methamp ScrnNegativeNormACMC Healthcare System [facility] Comment on above:Performed By: #### [id number], [id number] ####[facility] (DEFAULT)[address] [place] [address] 52835M Opiate ScrNegativeNormal [facility] HospitalComment on above:Performed By: #### [id number], [id number] ####[facility] (DEFAULT)[address] [place] [address] 28068F Oxycod ScrNegativeNormalMartins Ferry Hospital HospitalComment on above:Performed By: #### [id number], [id number] ####[facility] (DEFAULT)[address] [place] [address] 83409A Phencyclidine ScrNegativeNormalMartins Ferry Hospital HospitalComment on above:Performed By: #### [id number], [id number] ####[facility] (DEFAULT)[address] [place] [address] 03777G Tricyclic Antidepress Scr NegativeNormalMartins Ferry Hospital HospitalComment on above:Performed By: #### [id number], [id number] ####[facility] (DEFAULT)[address] [place] [address] 57206Pycnq SourceClean CatchNormalMartins Ferry Hospital HospitalComment on above:Performed By: #### [id number], [id number] ####[facility] (DEFAULT)[address] [place] [address] 24128KY w Culture if Ind Standardon 74-76-4564Zcpimjohfb UANormalRigrdayton osteopathic hospital HospitalComment on above:Performed By: #### [id number], [id number] ####[facility] (DEFAULT)[address] [place] [address] 99839Nypkl Nom (U)YELLOWInvalid Interpretation CodeMagruder HospitalComment on above:Performed By: #### [id number], [id number] ####[facility] (DEFAULT)[address] [place] [address] 17193Kxwpifk?Not IndicatedInvalid Interpretation CodeMagruder HospitalComment on above:Performed By: #### [id number], [id number] ####[facility] (DEFAULT)[address] [place] [address] 04042Sbemftq mass conc (U)NegativeInvalid Interpretation Code [facility] HospitalComment on above:Performed By: #### [id number], [id number] ####[facility] (DEFAULT)[address] [place] [address] 73097Cmpmsyy Ql (U)NegativeInvalid Interpretation CodeMartins Ferry Hospital HospitalComment on above: Performed By: #### [id number], [id number] ####[facility] (DEFAULT)[address] [place] [address] 65352Vezvt?Not IndicatedInvalid Interpretation CodeMartins Ferry Hospital HospitalComment on above:Performed By: #### [id number], [id number] ####[facility] (DEFAULT)[address] [place] [address] 81725RR BilirubinNegativeNormalMartins Ferry Hospital HospitalComment on above:Performed By: #### [id number], [id number] ####[facility] (DEFAULT)[address] [place] [address] 13738RB BloodNegativeNormalNEGATIVERigruder HospitalComment on above:Performed By: #### [id number], [id number] ####[facility] (DEFAULT)[address] [place] [address] 37106ZD ClarityCLEARNormalCLEAR [facility] HospitalComment on above:Performed By: #### [id number], [id number] ####[facility] (DEFAULT)[address] [place] [address] 69427SO Leuk EstNegativeNormalNEGATIVECincinnati Shriners Hospitaluder HospitalComment on above:Performed By: #### [id number], [id number] ####[facility] (DEFAULT)[address] [place] [address] 74996QP NitriteNegativeNormalNEGATIVEMartins Ferry Hospital HospitalComment on above:Performed By: #### [id number], [id number] ####[facility] (DEFAULT)[address] [place] [address] 21904SX pH6.0Invalid Interpretation Code5-8[facility] HospitalComment on above:Performed By: #### [id number], [id number] ####[facility] (DEFAULT)[address] [place] [address] 92818YO ProteinNegativeNormalNEGATIVEMartins Ferry Hospital HospitalComment on above:Performed By: #### [id number], [id number] ####[facility] (DEFAULT)[address] [place] [address] 45868LM Spec Grav>=1.030Invalid Interpretation Code 1.001-1.035[facility] HospitalComment on above:Performed By: #### [id number], [id number] ####[facility] (DEFAULT)[address] [place] [address] 84665UC Urobilinogen0.2 mg/dLNormal0.2-1.0[facility] HospitalComment on above: Performed By: #### [id number], [id number] ####[facility] (DEFAULT)[address] [place] [address] 86121Bljql SourceClean CatchNormACMC Healthcare System Glenbeigh HospitalComment on above:Performed By: #### [id number], [id number] ####[facility] (DEFAULT)[address] [place] [address] 22320 Vital Signs Date TimeVital SignValuePerforming RytcgucewQkuhjwnf41-60-9532 12:10-0400Body uygvtf274.3 cmRisa Summers MD Work Phone: [facility]10-13-2025 12:10-0400Body mass index (BMI) [Ratio]35.14 kg/m2Risa Summers MD Work Phone: [facility] [employer] Hwkchk86-67-4381 12:10-0400Body sdadxh066 kgRisa Summers MD Work Phone: [facility]10-13-2025 12:10-0400Diastolic blood czyawdct67 mm[Hg]Risa Summers MD Work Phone: [facility]10-13-2025 12:10-0400Heart rate 96 /minImad Melina MIJARES Work Phone: [facility]10-13-2025 12:10-1991ZvR2% (BldA) [Mass fraction]97 %Risa Summers MD Work Phone: [facility]10-13-2025 12:10-0400Systolic blood crqxwadg483 mm[Hg]Risa Summers MD Work Phone: [facility]09-09-2025 11:48-0400Body .[address]09-09-2025 11:48-0400Body mass index (BMI) [Ratio]36.92 kg/m2Pmh [address] [place], [place] 8982509-09-2025 11:48-0400Body jvnrxi845.[address] [place], [place] 8982508-25-2025 13:11-0400Body bjzonp688.[address]08-25-2025 13:11-0400Body mass index (BMI) [Ratio] 36.62 kg/m2Pmh [address] [place], [place] 898[address]08-25-2025 13:11-0400Body oyvecg214.49 kg [address] [place], [place] 8982508-21-2025 12:37-0400Body zmigwj124.3 cmFaithabby Steiner DO Work Phone: [facility]08-21-2025 12:37-0400Body mass index (BMI) [Ratio]35.66 kg/m2Joabby Perrys DO Work Phone: [facility]08-21-2025 12:37-0400Body wccabwqilll65.49 [degF]Rajni Steiner DO Work Phone: [facility]08-21-2025 12:37-0400Body .59 kgRajni Perrys DO Work Phone: [facility]08-21-2025 12:37-0400Diastolic blood vbtxrzuk90 mm[Hg]Rajni Steiner DO Work Phone: [facility]08-21-2025 12:37-0400Heart rate 88 /minJoabby Perrys DO Work Phone: [facility]08-21-2025 12:37-0400 Respiratory rate20 /minRajni Perrys DO Work Phone: [facility]08-21-2025 12:37-7609XyP3% (BldA) [Mass fraction]95 %Rajni Steiner DO Work Phone: [facility]08-21-2025 12:37-0400Systolic blood nwmphyed972 mm[Hg]Rajni Steiner DO Work Phone: [facility]08-11-2025 09:21-0375YgP2% (BldA) [Mass fraction]92 %[facility] HealthComment on above:Performed By: #### VBG #### [facility]ITAL[facility] ([address] [address] [id number] 13:28-0258DlB0% (BldA) [Mass fraction]94 %[facility] HealthComment on above:Performed By: #### BMP #### [facility] ([facility]) [address] [place] [address] [id number] 07:16-1921KkJ0% (BldA) [Mass fraction]100 %[facility] HealthComment on above:Performed By: #### VBG ####[facility] ([address] [address] [id number] 13:57-0400Body rgnqet893.3 cmOdessa Cook APRN-MAXX Work Phone: [facility] [employer] Vrpjxd12-72-0934 13:57-0400Body mass index (BMI) [Ratio]37.97 kg/j8PselfnOdessa Cook APRN-PUMP INSTALLATION AND SERVICER Work Phone: [facility] Iwzqiq01-85-4434 13:57-0400Body wcicfw601.62 kgOdessa Cook APRN-PUMP INSTALLATION AND SERVICER Work Phone: [facility] [employer] Voifrs58-24-0036 13:57-0400Diastolic blood rqlonsgh80 mm[Hg]Odessa Cook APRN-MAXX Work Phone: [facility]08-04-2025 13:57-0400Heart rate 96 /minOdessa Cook APRN-PUMP INSTALLATION AND SERVICER Work Phone: [facility] [employer] Hnkhgf68-27-3406 13:57-3698HxL8% (BldA) [Mass fraction]92 %Odessa Cook APRN-MAXX Work Phone: [facility] Ndsesq41-84-3954 13:57-0400Systolic blood mm[Hg]Odessa Cook APRN-MAXX Work Phone: [facility] [employer] Hdimme67-14-7088 14:17-0400Body trtomj196.3 cmRajni Steiner DO Work Phone: [facility] [employer] Vmnaux80-81-8451 14:17-0400Body mass index (BMI) [Ratio]40.38 kg/m2Rajni Perrys DO Work Phone: [facility] Mdmgrk56-45-9122 14:17-0400Body ryoclptsixa06.4 [degF]Rajni Vickys DO Work Phone: [facility] [employer] Slthfb13-29-8848 14:17-0400Body qpvmoo593.1 kgRajni Perrys DO Work Phone: [facility] [employer] Hcqegd70-13-8765 14:17-0400Diastolic blood dhhkzzuh26 mm[Hg]Rajni Steiner DO Work Phone: [facility] Twrfke11-94-6224 14:17-0400Heart rate 90 /minRajni Perrys DO Work Phone: [facility] Oaginw34-99-7426 14:17-0400 Respiratory rate20 /minRajni Perrys DO Work Phone: [facility] [employer] Zwafnb31-85-9666 14:17-0309KyO6% (BldA) [Mass fraction]92 %Rajni Steiner DO Work Phone: [facility] [employer] Zurlyn07-73-6295 14:17-0400Systolic blood herxhcfd759 mm[Hg]Rajni Steiner DO Work Phone: [facility] [employer] Rdwnzg68-44-5774 16:17-0400Body kpiaqs198.3 cmJoabby Perrys DO Work Phone: [facility] [employer] Ccfkdl64-77-2937 16:17-0400Body mass index (BMI) [Ratio]38.5 kg/m2Rajni Perrys DO Work Phone: [facility] [employer] Uvqrur80-13-5100 16:17-0400Body tugqqycdzke20.29 [degF]Rajni Steiner DO Work Phone: [facility] Jtbbqt82-78-0251 16:17-0400Body zosjfo403.3 kgRajni Perrys DO Work Phone: [facility] Xdmrsm61-42-7057 16:17-0400Diastolic blood upmzqepx87 mm[Hg]Rajni Steiner DO Work Phone: [facility] Pcdbix38-61-1532 16:17-0400Heart rate 77 /minRajni Perrys DO Work Phone: [facility] Tkdlpt05-08-9698 16:17-0400 Respiratory rate20 /minRajni Perrys DO Work Phone: [facility] Zbmhwk85-45-8850 16:17-2983OiF2% (BldA) [Mass fraction]94 %Rajni Steiner DO Work Phone: [facility] Cjhxrk86-28-7678 16:17-0400Systolic blood uzmkwcvr065 mm[Hg]Rajni Steiner DO Work Phone: [facility] [employer] Bcrekh58-36-1483 11:44-0400Body mjpzvo108.3 cmJoabby Steiner DO Work Phone: [facility] Ypnlui52-70-7773 11:44-0400Body mass index (BMI) [Ratio]36.4 kg/m2Rajni Steiner DO Work Phone: [facility] [employer] Bhcwgm08-22-2778 11:44-0400Body hmjpfulytzv20.9 [degF]Rajni Steiner DO Work Phone: [facility] [employer] Nkqwza70-88-1075 11:44-0400Body xitqxq877.86 kgRajni Steiner DO Work Phone: [facility] Xjahey38-05-0323 11:44-0400Diastolic blood utkgtgxz36 mm[Hg]Rajni Steiner DO Work Phone: [facility] Mfjklb66-79-2180 11:44-0400Heart rate 90 /minRajni Steiner DO Work Phone: [facility] Lgsmct38-76-8423 11:44-0400 Respiratory rate20 /minRjani Steiner DO Work Phone: [facility] Vkwdnb04-50-0151 11:44-2254PjT4% (BldA) [Mass fraction]97 %Rajni Steiner DO Work Phone: [facility] [employer] Fzjflz94-88-0037 11:44-0400Systolic blood hfytdsiy124 mm[Hg]Rajni Steiner DO Work Phone: [facility] Vywkme00-43-8552 15:18-0400Body .3 cmLeannhernando Guerrero DO Work Phone: [facility] WestCtvszmkcyq44-42-4385 15:18-0400Body mass index (BMI) [Ratio]36.71 kg/b4Gcrjzx Cesar DO Work Phone: [facility] WestJuzfrpjtkc19-32-3900 15:18-0400Body .76 kgLejim Guerrero DO Work Phone: [facility] WestOpgejmknrd46-19-4980 15:18-0400Diastolic blood tbwfznik95 mm[Hg]Sydnie Guerrero DO Work Phone: [facility] WestXwywlzgvsv36-26-7435 15:18-0400Heart rate93 /min Sydnie Guerrero DO Work Phone: [facility] WestEvjbttreyn48-59-9945 15:18-0657FhP8% (BldA) [Mass fraction]92 %Sydniearianna Guerrero DO Work Phone: [facility] WestQckvzfiern36-08-9337 15:18-0400Systolic blood ekdyarut988 mm[Hg]Sydnie Guerrero DO Work Phone: [facility] WestVyhpthsntb54-71-4545 11:05-0400Body .3 cmMyriam Peacock MD Work Phone: [phone])473-[address] [place], [place] 6294605-08-2025 11:05-0400Body mass index (BMI) [Ratio]36.77 kg/d5DhkntMyriam Peacock MD Work Phone: [phone] [place], [place] 6294605-08-2025 11:05-0400Body .95 kgMyriam Peacock MD Work Phone: [facility]05-08-2025 11:05-0400Diastolic blood sunuvaur80 mm[Hg]Myriam Peacock MD Work Phone: 1(394)223-[address] [place], [place] 6294605-08-2025 11:05-0400Heart rate 96 /minMyriam Peacock MD Work Phone: [facility] [employer] Pgzxvn70-07-8233 11:05-1858NlZ4% (BldA) [Mass fraction]97 %Myriam Peacock MD Work Phone: [facility] [employer] Kfhbyk03-83-5537 11:05-0400Systolic blood mm[Hg]Myriam Peacock MD Work Phone: [facility] [employer] Vclsmc71-27-4025 13:09-0400Body rtbsup278.3 cmJoabby Steiner DO Work Phone: [facility] [employer] Ghwmqw60-94-2918 13:09-0400Body mass index (BMI) [Ratio]35.21 kg/m2Rajni Steiner DO Work Phone: [facility] [employer] Vhhkww37-85-4722 13:09-0400Body bopnuymvrfs90.1 [degF]Rajni Steiner DO Work Phone: [facility] [employer] Uwfhik85-32-9221 13:09-0400Body epdtfy647.14 kgJoabby Steiner DO Work Phone: [facility] [employer] Miqtqv10-20-9161 13:09-0400Diastolic blood xubzeurw27 mm[Hg]Rajni Steiner DO Work Phone: [facility] [employer] Oabuqr80-46-3628 13:09-0400Heart rate 97 /minJoabby Steiner DO Work Phone: [facility] [employer] Frckyg63-57-7549 13:09-8479StH6% (BldA) [Mass fraction]95 %Rajni Steiner DO Work Phone: [facility] [employer] Qaasdi80-78-8313 13:09-0400Systolic blood aggsepgu848 mm[Hg]Rajni Steiner DO Work Phone: [facility]11-21-2024 13:00-0500Body weazui297.3 cmLeayvette Guerrero DO Work Phone: [facility] WestGfyswrhiqr59-02-7083 13:00-0500Body mass index (BMI) [Ratio]33.82 kg/o3DbicmsSydnie Guerrero DO Work Phone: [facility] WestKqounnwurz92-48-7929 13:00-0500Body ylqioi061.87 kgLejim Guerrero DO Work Phone: [facility] WestDmtvhxfsmq24-62-9371 13:00-0500Diastolic blood atdnahpn47 mm[Hg]Sydnie Guerrero DO Work Phone: [facility] WestOdddvfkxyl24-40-8265 13:00-0500Heart hnhb337 /min Sydnie Guerrero DO Work Phone: [facility] WestJlgvbrvpyf79-72-5528 13:00-6997KzG8% (BldA) [Mass fraction]89 %Sydnie Guerrero DO Work Phone: [facility] WestBtksimejdd42-08-2586 13:00-0500Systolic blood mm[Hg]Sydnie Guerrero DO Work Phone: [place] [address]Mxtsjrmfmy56-48-8491 13:10-0500Body dqfqho089.3 cmJoabby Steiner DO Work Phone: [facility]11-11-2024 13:10-0500Body mass index (BMI) [Ratio]32.93 kg/m2Rajni Steiner DO Work Phone: [facility]11-11-2024 13:10-0500Body cmsbdtooekt30.4 [degF]Rajni Perrys DO Work Phone: [facility]11-11-2024 13:10-0500Body ydsfyp621.15 kgRajni Perrys DO Work Phone: [facility]11-11-2024 13:10-0500Diastolic blood orawksua54 mm[Hg]Rajni Steiner DO Work Phone: [facility]11-11-2024 13:10-0500Heart rate 87 /minJoabby Perrys DO Work Phone: [facility] [employer] Rkazaz76-99-5852 13:10-8262PvK1% (BldA) [Mass fraction]93 %Rajni Steiner DO Work Phone: [facility] [employer] Uknbix48-01-8736 13:10-0500Systolic blood lemtbjjw318 mm[Hg]Rajni Steiner DO Work Phone: [facility] [employer] Zfgwhm50-06-2385 10:36-0400Body syvfop373.3 Aneta Giles MD Work Phone: [phone] [employer] Ewnghw03-51-2681 10:36-0400Body mass index (BMI) [Ratio]33.7 kg/w8ChobpcSaqib Giles MD Work Phone: [phone] [employer] Yhzsxh49-29-2479 10:36-0400Body hdojay983.51 kgThlashell Giles MD Work Phone: [phone] [employer] Medwhi17-95-3410 10:36-0400Diastolic blood anqlxytr92 mm[Hg]Saqib Giles MD Work Phone: [phone])673 [address] Xjebqs46-20-7973 10:36-0400Heart rate 71 /minThlashell Giles MD Work Phone: 1(769)[address] [employer] Dndvgr38-74-2025 10:36-6033PyD1% (BldA) [Mass fraction]93 %Saqib Giles MD Work Phone: [phone] [employer] Jqbigs95-80-1395 10:36-0400Systolic blood aidanjcj349 mm[Hg]Saqib Giles MD Work Phone: [phone] [address] Jeouxt91-74-2845 13:02-0400Body yubyov638.3 cmRajni Steiner Work Phone: [facility] [employer] Xlwqew39-71-0078 13:02-0400Body mass index (BMI) [Ratio]33.4 kg/m2Rajni Steiner DO Work Phone: [facility] Ztuxye87-98-4128 13:02-0400Body nkgxabfghch22.01 [degF]Rajni Steiner DO Work Phone: [facility]09-09-2024 13:02-0400Body yygwey672.6 kgJoabby Steiner DO Work Phone: [facility]09-09-2024 13:02-0400Diastolic blood ksmeovdq48 mm[Hg]Rajni Steiner DO Work Phone: [facility]09-09-2024 13:02-0400Heart rate 90 /minJoabby Steiner DO Work Phone: [facility]09-09-2024 13:028713QvE9% (BldA) [Mass fraction]93 %Rajni Steiner DO Work Phone: [facility]09-09-2024 13:02-040Systolic blood mm[Hg]Rajni Steiner DO Work Phone: [facility]08-13-2024 19:58-0400Body vskykv944.[address]08-13-2024 19:58-0400Body mass index (BMI) [Ratio]35.15 kg/m2Pmh [address] [place], [place] 5865108-13-2024 19:58-0400Body bxhbvy782.[address] [place], [place] 5865107-08-2024 15:46-0400Diastolic blood aihiqwmc63 mm[Hg]Rajni Steiner DO Work Phone: [facility]07-08-2024 15:46-0400Systolic blood mm[Hg]Rajni Steiner DO Work Phone: [facility]07-08-2024 15:44-0400Body awhzlj414.3 cmJoabby Steiner DO Work Phone: [facility]07-08-2024 15:44-0400Body mass index (BMI) [Ratio]35.74 kg/m2Joabby Steiner DO Work Phone: [facility] [employer] Lcodki12-09-9384 15:44-0400Body xfdlrejlbfu13.9 [degF]Rajni Steiner DO Work Phone: [facility]07-08-2024 15:44-0400Body liafjt125.77 kgRajni Steiner DO Work Phone: [facility] [employer] Fplbxx85-59-1993 15:44-0400Heart rate 83 /minRajni Steiner DO Work Phone: [facility]07-08-2024 15:44-8772EkZ4% (BldA) [Mass fraction]96 %Rajni Steiner DO Work Phone: [facility]06-05-2024 13:38-0400Body .3 cmRajni Steiner DO Work Phone: [facility]06-05-2024 13:38-0400Body mass index (BMI) [Ratio]35.99 kg/m2Rajni Steiner DO Work Phone: [facility] [employer] [id number] 13:38-0400Body jobxfqxpdmd47.8 [degF]Rajni Steiner DO Work Phone: [facility]06-05-2024 13:38-0400Body inhgkv834.54 kgRajni Steiner DO Work Phone: [facility]06-05-2024 13:38-0400Diastolic blood wsildqsq20 mm[Hg]Rajni Steiner DO Work Phone: [facility] [employer] [id number] 13:38-0400Heart rate 82 /minRajni Steiner DO Work Phone: [facility]06-05-2024 13:38-0400 Respiratory rate18 /Frances Steiner DO Work Phone: [facility]06-05-2024 13:38-0288RzM5% (BldA) [Mass fraction]93 %Rajni Steiner DO Work Phone: [facility]06-05-2024 13:38-0400Systolic blood uzqomliq016 mm[Hg]Rajni Steiner DO Work Phone: [facility]05-30-2024 11:15-0400Diastolic blood gfhcxugf51 mm[Hg]Kacey Stephens [employer] Work Phone: [facility]05-30-2024 11:15-0710GmC3% (BldA) [Mass fraction]91 %Kacey Stephens [employer] Work Phone: [facility]05-30-2024 11:15-0400Systolic blood grcllkew273 mm[Hg]Kacey Stephens ELECTROLESS PLATER-GAMBRELER HELPER Work Phone: [facility]05-30-2024 11:11-0400Body pdxqda955.3 cmKacey Stephens ELECTROLESS PLATER-GAMBRELER HELPER Work Phone: [facility]05-30-2024 11:11-0400Body mass index (BMI) [Ratio]36.56 kg/m2Kacey Stephens ELECTROLESS PLATER-GAMBRELER HELPER Work Phone: [facility]05-30-2024 11:11-0400Body vpgrpmequwg50.7 [degF]Kacey Stephens ELECTROLESS PLATER-GAMBRELER HELPER Work Phone: [facility]05-30-2024 11:11-0400Body lwunqx196.31 kgKacey Stephens ELECTROLESS PLATER-GAMBRELER HELPER Work Phone: [facility]05-30-2024 11:11-0400Heart rate 70 /minKacey Stephens ELECTROLESS PLATER-GAMBRELER HELPER Work Phone: [facility]05-30-2024 11:11-0400 Respiratory rate24 /minKacey Stephens ELECTROLESS PLATER-GAMBRELER HELPER Work Phone: [facility]05-15-2024 13:36-0400Diastolic blood shmhnpuk94 mm[Hg]Rajni Steiner DO Work Phone: [facility]05-15-2024 13:36-0400Systolic blood mm[Hg]Rajni Steiner DO Work Phone: [facility]05-15-2024 13:04-0400Body urbvtw884.3 cmJoabby Steiner DO Work Phone: [facility]05-15-2024 13:04-0400Body mass index (BMI) [Ratio]37.07 kg/m2Joabby Steiner DO Work Phone: [facility]05-15-2024 13:04-0400Body yvywihrwqsi06.59 [degF]Rajni Steiner DO Work Phone: [facility]05-15-2024 13:04-0400Body wgeiuv833.85 kgJoabby Steiner DO Work Phone: [facility]05-15-2024 13:04-0400Heart rate 88 /minJoabby Steiner DO Work Phone: [facility]05-15-2024 13:04-6455DsY5% (BldA) [Mass fraction]93 %Rajni Steiner DO Work Phone: [facility]04-16-2024 20:38-0400Body ozrrgt040.[address]04-16-2024 20:38-0400Body mass index (BMI) [Ratio]38.1 kg/m[address]04-16-2024 20:38-0400Body dqszfu160.[address] [place], [place] 58[address]104-15-2024 13:53-0400Diastolic blood zdxrakmx86 mm[Hg]Rajni Steiner DO Work Phone: [facility]04-15-2024 13:53-0400Systolic blood qetwmyqp880 mm[Hg]Rajni Steiner DO [facility] Phone: [facility] Pzvgld87-78-6361 13:05-0400Body eqedye145.3 cmRajni Steiner DO Work Phone: [facility] Najcrf41-92-1168 13:05-0400Body mass index (BMI) [Ratio]38.03 kg/m2Rajni Steiner DO Work Phone: [facility] Reipsz86-10-2068 13:05-0400Body kmejnxhvstz35.6 [degF]Rajni Steiner DO Work Phone: [facility] Smhhho36-15-5578 13:05-0400Body .8 kgRajni Steiner DO Work Phone: [facility] Glevqs33-38-8280 13:05-0400Heart rate 76 /minRajni Steiner DO Work Phone: [facility] [employer] Zulmdi72-26-4824 13:05-0400 Respiratory rate18 /minRajni Steiner DO Work Phone: [facility] Ahmpzj21-24-9016 13:05-9833OiH5% (BldA) [Mass fraction]93 %Rajni Steiner DO Work Phone: [facility] Pwdzwh73-04-8402 11:00-0400Body yocinjuowdd58.01 [degF]Rajni Steiner DO Work Phone: [facility] Dwafrt96-16-3794 11:00-0400Diastolic blood yxgkifvu55 mm[Hg]Rajni Steiner DO Work Phone: [facility] Wzaqyo54-68-2011 11:00-0400Heart rate 85 /minRajni Steiner DO Work Phone: [facility] Yfemed42-04-9090 11:00-0400 Respiratory rate22 /minRajni Perrys DO Work Phone: [facility] Upygjw69-66-5394 11:00-5727HhT4% (BldA) [Mass fraction]93 %Rajni Steiner DO Work Phone: [facility]-2024 11:00-0400Systolic blood muklnoai720 mm[Hg]Rajni Steiner DO Work Phone: [facility]04-01-2024 05:57-0400Body mass index (BMI) [Ratio]33.77 kg/m2Rajni Steiner DO Work Phone: [facility] Iklgpw13-43-4255 05:57-0400Body gejiby920.74 kgRajni Steiner DO Work Phone: [facility] Alunyc62-86-0809 19:05-0400Body oscscc492.3 cmRajni Steiner DO Work Phone: [facility]03-30-2024 17:52-0400Body yieayzgxoko63.6 [degF]Rajni Steiner DO Work Phone: [facility] Uuulyb68-53-5394 17:52-2309ZtG7% (BldA) [Mass fraction]95 %Rajni Steiner DO Work Phone: [facility] Knctoo05-60-2821 14:20-0500Body cworvj574.3 cmRajni Steiner DO Work Phone: [facility]03-06-2024 14:20-0500Body mass index (BMI) [Ratio]38.42 kg/m2Rajni Stenier DO Work Phone: [facility]03-06-2024 14:20-0500Body kbburkkraef45.1 [degF]Rajni Steiner DO Work Phone: [facility]03-06-2024 14:20-0500Body cvlvha089.03 kgRajni Steiner DO Work Phone: [facility]03-06-2024 14:20-0500Diastolic blood tlbqmanj14 mm[Hg]Rajni Yuhas DO Work Phone: [facility] Ugvaby04-97-5471 14:20-0500Heart rate 70 /minJoabby Steiner DO Work Phone: [facility] [employer] Wrmqxe02-75-7864 14:20-7725OhQ4% (BldA) [Mass fraction]96 %Rajni Steiner DO Work Phone: [facility] [employer] Upcojc51-55-6972 14:20-0500Systolic blood sowbqkib934 mm[Hg]Rajni Steiner DO Work Phone: [facility] [employer] Duebzf19-77-2256 10:18-0500Body yymumn336.3 cmSye Meadows DO Work Phone: [facility] [employer] Yghxkd58-63-1133 10:18-0500Body mass index (BMI) [Ratio]37.08 kg/w1BpjynpGrace Meadows DO Work Phone: [facility] [employer] Dvsfgf13-79-3817 10:18-0500Body ukqlzy628.9 kgGrace Meadows DO Work Phone: [facility] [employer] Phhjon69-05-2442 10:18-0500Diastolic blood bbgoxvho60 mm[Hg]Grace Meadows DO Work Phone: [facility] [employer] Ryaefm78-01-0942 10:18-0500Heart rate 75 /minSye Meadows DO Work Phone: [facility] [employer] Kjfjzs37-03-2677 10:18-5951LeN1% (BldA) [Mass fraction]96 %Grace Meadows DO Work Phone: [facility] [employer] Toqjcz17-81-6563 10:18-0500Systolic blood gkgwqmfo601 mm[Hg]Grace Meadows DO Work Phone: [facility]02-05-2024 13:59-0500Body rpjeyd565.3 cmRajni Steiner DO Work Phone: [facility] [employer] Grftwc78-98-8553 13:59-0500Body mass index (BMI) [Ratio]38.59 kg/m2Rajni Steiner DO Work Phone: [facility] [employer] Cnksfi56-36-3616 13:59-0500Body nywkczwktte91.39 [degF]Rajni Steiner DO Work Phone: [facility] [employer] Tfivjc84-42-2158 13:59-0500Body snylqe533.53 kgRajni Steiner DO Work Phone: [facility]02-05-2024 13:59-0500Diastolic blood dgrhpaoh86 mm[Hg]Rajni Steiner DO Work Phone: [facility]02-05-2024 13:59-2349BkL0% (BldA) [Mass fraction]95 %Rajni Steiner DO Work Phone: [facility]02-05-2024 13:59-0500Systolic blood ttpyayyh248 mm[Hg]Rajni Steiner DO Work Phone: [facility]12-28-2023 07:01-8244VzH2% (BldA) [Mass fraction]95 %WILBER [facility] HospitalComment on above: Performed By: #### ABG ####[facility] ([id number])[address] [place] [address] [id number] 07:43-9617CrW7% (BldA) [Mass fraction]93 %WILBER Caalca [facility] HospitalComment on above:Performed By: #### ABG #### [facility] ([id number]) [address] [place], [place] [id number] 10:09-4175ZaG8% (BldA) [Mass fraction]93 %WILBER FRASER [facility] HospitalComment on above:Performed By: #### CMP, 72640-3, 16137-2, CBCA #### [facility] ([id number]) [address] [place], [place] [phone] 07:52-0000UuK7% (BldA) [Mass fraction]93 %WILBER Cavazos [facility] HospitalComment on above:Performed By: #### CMP, 61210-7, 19020-3, CBCA #### [facility] ([id number]) [address] [facility] [place], [place] [id number] 06:48-1500FlF5% (BldA) [Mass fraction]94 %WILBER Raineyjohn paul jones hospitalmindi [facility] HospitalComment on above:Performed By: #### CMP, 50201-7, 90962-8, CBCA #### [facility] ([id number]) [address] [facility] [place], [place] [phone] 07:26-4187QtQ7% (BldA) [Mass fraction]95 %WILBER Raineyjohn paul jones hospitalmindi [facility] HospitalComment on above:Performed By: #### ABG #### [facility] ([id number]) [address] [place], [place] 2928043-24-7276 08:40-0400Body heightDahernan Carson Other [employer] Other Phone: [phone] 08:40-0400Body mass index (BMI) [Ratio] 38.83 kg/m2John Carson Other [employer] Other Phone: [phone] 08:40-0400Body hmldea355.3 kgJohn Carson Other [employer] Other 08-17-2023 08:40-0400Diastolic blood mjcwshym86 mm[Hg] John Carson Other [employer] Other 08-17-2023 08:40-0400Systolic blood vshbupfc922 mm[Hg] John Carson Other [employer] Other Encounters Encounter DateEncounter TypeCare ProviderFacilityStart: 02-24-2025 End: 70-50-8993AxonjhQnam L Yuhas DO Work Phone: [facility] - [facility] MedicineComment on above:Gastro-esophageal reflux disease without esophagitisMed RefillStart: 02-22-2025 End: 98-70-2937Gpmvncduk department patient visitRAJNI Cardoso [facility]: 02-20-2025 End: 42-75-3084Zvqxzi-up encounterKacey Sims [facility] - Heart Failure ClinicComment on above:Basic Metabolic PanelStart: 75-31-7634kpjvmmrwdwNGBY M [facility] Hospitaltart: 02-13-2025 End: 52-92-9295xeptkukxjzZheeqey Vytheather Giedraitis MDFacility:PM Yoly Start: 02-09-2025 End: 09-44-2173Vgvddpnxb department patient visitJOABBY Cardoso [facility]: 02-08-2025 End: 57-61-8032Hgqtyytct encounterSydnie Guerrero DO Work Phone: [facility]: 02-06-2025 End: 31-38-8545Fbegtqwkx encounterTosin Reyes CMAEast [facility] Internal Medicine [facility] Hospitalt[facility]: 02-06-2025 End: 90-21-7276rysibfdlceVEUI M [facility] Hospitaltart: 02-06-2025 End: 36-27-3772Haawcs outpatient visit 25 minutesRisa Summers MD Work Phone: [facility] - Heart Failure ClinicComment on above:Chronic diastolic heart failure (CMS-HCC) (Primary Dx); Pulmonary hypertension (CMS-HCC); Nonrheumatic tricuspid valve regurgitationStart: 02-03-2025 End: 23-09-7066Bqykqjmsl encounterAntoinette Sanchez CNAProMedica Heart Failure ClinicStart: 01-25-2025 End: 35-02-3950Nlruzfxya encounterLeannhernando Magnolia Guerrero DO Work Phone: [facility] MedicineStart: 01-04-2025 End: 41-89-7720Nulidhoblr and management of inpatientRAJNI PERRYAultman Hospital HospitalStart: 01-03-2025 End: 84-38-6336jhihewvcllCvj Pat Phone Call Provider [address] [place] [address] AdmitStart: 01-03-2025 End: 00-12-1310Ccbayuezf encounterScarletthernando Merida Cesar DO Work Phone: [facility] MedicineStart: 01-03-2025 End: 60-20-9693emihhyahjhYCAL L [facility]: 12-28-2024 End: 61-11-3600LxaxcfOhzx L Obdulia DO Work Phone: [facility] - Family MedicineComment on above: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Basic Metabolic PanelStart: 12-27-2024 ambulatoryRAJNI Cardoso [facility]art: 12-21-2024 End: 43-23-4119byxdhnyfnzZLQAUL A PRUIETTSelect [facility] HospitalStart: 12-19-2024 End: 46-94-9855pvonuxirjwBwf Pat Phone Call Provider [address] [place] [address] AdmitStart: 12-19-2024 End: 12-00-3016tewvfwupvsOKYG L [facility] HospitalStart: 12-19-2024 End: 57-08-5135rqkvrnsqdrZijuggy Saadia Root MDFacility:PM Yoly Start: 12-15-2024 End: 50-58-8914Twfvko-up encounterRajni Steiner DO Work Phone: [facility] - Family MedicineComment on above:Basic Metabolic PanelStart: 12-15-2024 End: 91-43-5573Iomcikjdnsea care manage srvc 14 day dischargeRajni Steiner DO Work Phone: [facility] Internal Medicine - Family MedicineComment on above:Microcytic anemia (Primary Dx); Gastro-esophageal reflux disease without esophagitis; Stage 3a chronic kidney disease ([facility]-HCC); Spinal stenosis of lumbar region with neurogenic claudicationStart: 12-15-2024 End: 98-44-9099fmzrztbyjhASAJ L JD [facility] PPGStart: 44-64-9200xkycovdhoaLXNU L [facility] HospitalStart: 12-12-2024 End: 12-68-8261Dppbud-up encounterHoly Name Medical Centerlivia BryanMercy Health [facility] Heart Failure ClinicComment on above:Basic Metabolic PanelStart: 93-61-3482tcjzjavbjtHXQPVY A PRUIETTSelect [facility] [place] HospitalStart: 12-08-2024 End: 05-98-1346Xqhldbfou encounterLiz [facility] Physicians Internal Medicine - Family MedicineComment on above:Transition Of CareStart: 12-04-2024 End: 79-49-7010Xekhxvexbb and management of inpatientRAJNI Cardoso [facility] HospitalStart: 12-03-2024 End: 68-58-7187Dijfkmgylf and management of inpatientRAJNI PERRYAultman Hospital HospitalStart: 11-30-2024 End: 40-19-6932Pryxxq-up encounterHoly Name Medical Centerlivia [facility] Heart Failure ClinicComment on above:Basic Metabolic PanelStart: 11-29-2024 End: 77-03-0742Tcyexx-up encounterRajni Steiner DO Work Phone: [facility] Internal Medicine - Family MedicineComment on above:X-ray knee right 3 viewsStart: 80-76-6095gytwsnnybhlionel TorrezWright-Pat[facility] Center HospitalStart: 11-28-2024 End: 66-08-3641yclzaxsaykRZRV L [facility]art: 11-28-2024 End: 29-27-6121Yxeopc outpatient visit 25 minutesOdessa Cook ELECTROLESS PLATER-PUMP INSTALLATION AND SERVICER Work Phone: [facility] - Heart Failure ClinicComment on above:Chronic heart failure with preserved ejection fraction ([facility]-HCC) (Primary Dx); Pulmonary hypertension ([facility]); Nonrheumatic tricuspid valve regurgitation; Essential hypertension; Atherosclerosis of knik coronary artery of knik heart without angina pectoris; History of four vessel coronary artery bypass graft; NSTEMI (non-ST elevated myocardial infarction) ([facility])Start: 11-28-2024 End: 82-09-3417rvjzypvsbhQSJMOO A PRUIETTMercy Health St. Rita's Medical Centertart: 11-23-2024 End: 51-68-3750KxuezkQapk L Yuhas DO Work Phone: [facility] Internal Medicine - Family MedicineComment on above:Peripheral polyneuropathyStart: 11-14-2024 End: 81-89-6629dwhviehkgxObkrmyc Vytautas Giedraitis MDFacility:PM Yoly Start: 11-07-2024 End: 36-41-6207Czoxuw outpatient visit 25 minutesRajni Perrys DO Work Phone: [facility] Internal Medicine - Family MedicineComment on above:Hiatal hernia with GERD (Primary Dx); Stage 3a chronic kidney disease ([facility]); Patellar tendinitis of right knee; Gastro-esophageal reflux disease without esophagitis; Venous insufficiency of both lower extremitiesStart: 11-07-2024 End: 02-58-1205mjgwptcbbuTCSE [facility] Ambulatory PPGStart: 11-02-2024 End: 72-87-9230Ewswvq-up encounterRajni Steiner DO Work Phone: [facility] Internal Medicine - Family MedicineComment on above:Fluoroscopy upper GI with esophagusStart: 11-02-2024 End: 23-17-8118uzsfuafpzeVTDA [facility] Hospitaltart: 10-27-2024 End: 60-84-6304Plsnbs outpatient visit 25 minutesRajni Perrys DO Work Phone: [facility] - Family MedicineComment on above:Type 2 diabetes mellitus with stage 3a chronic kidney disease, without long-term current use of insulin ([facility]) (Primary Dx); Venous insufficiency of both lower extremities; Chronic heart failure with preserved ejection fraction ([facility]-HCC); Stage 3a chronic kidney disease ([facility]); Nausea and vomiting, unspecified vomiting type; Arthritis of left sacroiliac jointStart: 10-27-2024 End: 06-80-5956hgmcswzclmVHKTBinghamton State Hospital Ambulatory PPGStart: 10-13-2024 End: 97-56-5580KoqovuNlvf L Yuhaumair DO Work Phone: [facility] - [facility] GeorgiaComment on above:Peripheral polyneuropathyStart: 76-53-6120isiovobyhlSilver Lake Medical Centertart: 10-07-2024 End: 72-87-8742rooftshnrbURSJChildren's [facility] Ambulatory PPGStart: 10-07-2024 End: 75-75-0959Lraaeq outpatient visit 25 minutesRajni Steiner DO Work Phone: [facility] - Family [facility] OhioComment on above:Cervicogenic headache (Primary Dx); Orthostatic hypotension; Chronic heart failure with preserved ejection fraction ([facility]); Fibromyalgia syndromeStart: 09-21-2024 End: 93-89-5577Hpalgv outpatient visit 15 minutesSydnie Guerrero DO Work Phone: noms FNR PULMComment on above:Chronic obstructive pulmonary disease, unspecified COPD type ([facility]/HCC) (Primary Dx); Chronic respiratory failure with hypoxia and hypercapnia ([facility]); BONY (obstructive sleep apnea)Start: 09-21-2024 End: 28-51-3017zyxerjskfuYBVNWY K STRACKNot AvailableStart: 09-21-2024 End: 97-34-7760Cxnztl flowsElba Guerrero DO Work Phone: [facility] FNR PULMStart: 09-21-2024 End: 64-60-5203Pxwuuh flowsElba Guerrero DO Work Phone: [facility] FNR PULMStart: 09-04-2024 End: 27-39-6434SahrnaRqlu L Yuhas DO Work Phone: [facility] Internal Medicine - Family MedicineComment on above:Peripheral polyneuropathyStart: 09-01-2024 End: 64-01-3182Rhkats outpatient visit 25 Jayson Peacock MD Work Phone: [facility] Physicians CardiologyComment on above: Chronic heart failure with preserved ejection fraction (CMS-HCC) (Primary Dx); 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 Ruby Memorial Hospitaltart: 07-07-2024 End: 65-21-0663rdamutndskPDSRMemorial Hermann Surgical Hospital KingwoodStart: 07-07-2024 End: 21-45-4434Rlkbwn outpatient visit 25 Spring Steiner DO Work Phone: [facility] Internal Medicine - Family MedicineComment on above:IFG (impaired fasting glucose) (Primary Dx); Chronic obstructive pulmonary disease, unspecified COPD type (CMS-HCC); Stage 3a chronic kidney disease (CMS-HCC); Chronic respiratory failure with hypoxia and hypercapnia (CMS-HCC); Chronic heart failure with preserved ejection fraction (CMS-HCC); Bipolar 2 disorder, major depressive episode ([facility]-HCC); BMI 40.0-44.9, adult ([facility]-HCC); 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 ([facility]); B12 deficiency; Peripheral polyneuropathy; Arthritis of left sacroiliac joint ([facility]-HCC)Start: 05-14-2024 End: 53-26-1410BbflkaDllm L Yusunshine DO Work Phone: [facility] Internal Medicine - Family MedicineComment on above:Peripheral polyneuropathyStart: 04-25-2024 End: 09-17-9536JeysqhZrexnl [facility] Physicians CardiologyComment on above:Med RefillStart: 04-07-2024 End: 14-05-8611WdwryiArgcfnei Noah ELECTROLESS PLATER-PUMP INSTALLATION AND SERVICER Work Phone: [facility] Physicians CardiologyComment on above:Med RefillStart: 03-29-2024 End: 63-16-5074ypunijbdvvEWZGBinghamton State Hospital Ambulatory PPGStart: 03-29-2024 End: 42-16-5076Wumucd outpatient visit 25 minutesRajni Steiner DO Work Phone: [facility] Internal Medicine - Family MedicineComment on above:Contusion of lower leg, unspecified laterality, initial encounter (Primary Dx)Start: 03-29-2024 End: 05-13-6027Luhtevufs encounterMisty Preston [facility] HospitalMed[facility] Internal Medicine - Family MedicineStart: 03-21-2024 End: 81-83-3391beygbjyrtlWiqcxoy Saadia Root MDFacility:PM [place] Start: 03-17-2024 End: 46-69-2481Yxbtmj SilkElba Guerrero DO Work Phone: noms PULMStart: 03-17-2024 End: 75-42-4296Cnnklm SilkElba Guerrero DO Work Phone: noms PULMStart: 03-17-2024 End: 91-06-8283Bateyr outpatient new 45 minutesSydnie Guerrero DO Work Phone: noms PULMComment on above:Chronic obstructive pulmonary disease, unspecified COPD type (CMS/HCC) (Primary Dx); Chronic respiratory failure with hypoxia and hypercapnia (CMS/HCC); Cigarette smokerStart: 03-17-2024 End: 75-87-3686anumtzlbpwABKIVMVicente Carvajal AvailableStart: 03-09-2024 End: 57-51-2741JfrddvSocg L Vickyumair DO Work Phone: [facility] Internal Medicine - Family MedicineComment on above:Gastro-esophageal reflux disease without esophagitis Start: 03-07-2024 End: 17-65-0526uetveyracqQHHAAvita Health System Bucyrus Hospitaltart: 03-07-2024 End: 03-72-0459Zgplzf outpatient visit 25 minutesRajni Steiner DO Work Phone: [facility] Internal Medicine - Family MedicineComment on above:IFG (impaired fasting glucose) (Primary Dx); Peripheral polyneuropathy; Stage 3a chronic kidney disease (CMS-HCC); Chronic heart failure with preserved ejection fraction (CMS-HCC); 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 ([facility]-HCC)Start: 03-07-2024 End: 76-48-3524zmlvkqpobtJEAJMayo Clinic Health System[facility] PPGStart: 02-29-2024 End: 61-99-6579mwyteordlcAoftcqwSapna Root MDFacility:PM [place] Start: 02-22-2024 End: 73-93-8052Kyrybcgpr encounterMisty Preston [facility]ENTERPro[facility]ica Physicians Internal Medicine - Family [facility] Hospitaltart: 02-22-2024 End: 69-04-6172xjwqwdbmamJqrzfjmSapna Root MDFacility:PM [place] Start: 02-19-2024 End: 23-27-3212Mapzzp outpatient visit 15 minutesAlex Amos MD Work Phone: [facility] CardiologyComment on above: 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 (CMS-HCC) (Primary Dx)Start: 02-18-2024 End: 38-54-6869Lmycjturv encounterJennifer Lachner [facility] CENTERProMedica Physicians CardiologyStart: 02-09-2024 End: 21-68-9446Wlbhyt flowsLino Huertas DO Work Phone: n[facility] CI ORTHOPAEDICSStart: 02-09-2024 End: 08-54-6825Frgvej flowsLino Huertas DO Work Phone: [facility] CI ORTHOPAEDICSStart: 02-09-2024 End: 95-48-1269nrjzobqybzDZLFH A ALEKSANDARNot AvailableStart: 02-09-2024 End: 33-46-5869Iczfsp outpatient visit 10 minutesEusebia Huertas DO Work Phone: noms CI ORTHOPAEDICSComment on above:Trigger point of left side of body (Primary Dx); Arthritis of left sacroiliac joint (CMS/HCC); Lumbosacral pain; Pain of left sacroiliac jointStart: 02-03-2024 End: 12-41-3027Xsksdgmnt encounterFior Scott [facility]ENTERProMedica Physicians Internal Medicine - Family MedicineStart: 02-01-2024 End: 79-41-8931Pzxtndrbj encounterSye Meadows DO Work Phone: [facility] Pulmonary/Sleep MedicineStart: 01-26-2024 End: 63-47-3972Rknbwb outpatient visit 15 minutesEusebia Heurtas DO Work Phone: noms CI ORTHOPAEDICSComment on above:Left shoulder pain, unspecified chronicity (Primary Dx); Arthritis of left shoulder regionStart: 01-26-2024 End: 11-23-0596jptlikatvlOWENR A HUDLITAKARLANot AvailableStart: 01-21-2024 End: 92-15-1125Ycytfp Rajinder Buchanan APRN-PUMP INSTALLATION AND SERVICER Work Phone: [facility]ca Heart Failure ClinicComment on above:Chronic heart failure with preserved ejection fraction (CMS-HCC)Start: 01-20-2024 End: 59-64-3966RjgtxgJlykj Bruce MERCADOAcadian Medical Centergenet Physicians CardiologyComment on above:Med RefillStart: 01-20-2024 End: 76-21-3781IdcklaIaua L Yuhas DO Work Phone: [facility] Internal Medicine - Family MedicineComment on above:Spinal stenosis of lumbar region with neurogenic claudicationMed Change RequestStart: 01-19-2024 End: 83-31-1000Whxggfmet encounterAnabela Cueva [facility] Cardiology Start: 01-18-2024 End: 99-33-7990OhwdceYtwpta [facility] Physicians CardiologyComment on above:Med RefillStart: 69-28-7023ypnbiwvweyCYQXQD [facility] Ambulatory PPGStart: 01-12-2024 End: 78-57-3055Iyfjog flowsLino Huertas DO Work Phone: [facility] CI ORTHOPAEDICSStart: 01-12-2024 End: 76-12-5544Csclhx Yelena Huertas DO Work Phone: [facility] CI ORTHOPAEDICSStart: 01-12-2024 End: 44-56-4483wszvykepxqLTRUI A HUDDLESTONNot AvailableStart: 01-12-2024 End: 91-27-5944Eyhxtz outpatient visit 10 minutesEusebia Huertas DO Work Phone: n[facility] CI ORTHOPAEDICSComment on above:Trigger point of left side of body (Primary Dx)Start: 01-07-2024 End: 93-06-8896Bkkkzpzse encounterSofya Coe [facility] Internal Medicine - Family MedicineStart: 01-04-2024 End: 92-46-8423zcrpkeotunJYBN L YUHAAndi Kendall HospitalStart: 01-04-2024 End: 86-17-4413Lasntn outpatient visit 25 minutesRajni Steiner DO Work Phone: [facility] Internal Medicine - Family MedicineComment on above:Chronic respiratory failure with hypoxia and hypercapnia (CMS-HCC) (Primary Dx); BONY treated with BiPAP; Spinal stenosis of lumbar region with neurogenic claudication; Chronic heart failure with preserved ejection fraction (CMS-HCC)Start: 01-04-2024 End: 52-28-6049nquwjejvzpTTQGChildren's Healthcare of [facility] Ambulatory PPGStart: 01-01-2024 End: 80-79-4255AdramnSobd L Yuhas DO Work Phone: [facility] HospitalComment on above:Spinal stenosis of lumbar region with neurogenic claudicationStart: 12-30-2023 End: 47-42-0569Admflrmxq encounterMisty Preston ELIANProMedica [facility]icians Internal Medicine [facility] MedicineStart: 12-29-2023 End: 61-88-7216Ylwqzr SilkoscarEnrriquecristina Mindi Aleksandar DO Work Phone: n[facility] CI ORTHOPAEDICSStart: 12-29-2023 End: 48-85-3765Yxnpnu SilkheetEusebia Mindi Aleksandar DO Work Phone: n[facility] CI ORTHOPAEDICSStart: 12-29-2023 End: 69-31-4867[place] outpatient visit 25 minutesJacristina Mindi Aleksandar DO Work Phone: noms CI ORTHOPAEDICSComment on above:Trigger point of left side of body (Primary Dx); Compression fracture of T6 vertebra with routine healing, subsequent encounter; Compression fracture of T8 vertebra with routine healing, subsequent encounter; Osteoporotic compression fracture of vertebra with routine healing, subsequent encounterStart: 12-29-2023 End: 07-51-0413ocqqwyrytwUUBBN A HUDDLESTONNot AvailableStart: 12-24-2023 End: 78-22-6432Zntxedekm encounterMisty Preston [facility] Internal Medicine [facility] MedicineStart: 12-17-2023 End: 98-27-4798Kscrgwrge encounterRoxanne E LafountainProMedica Physicians Pulmonary/Sleep MedicineStart: 12-15-2023 End: 66-23-1619Kdvevkfqi encounterRoxanne E LafountainProMedica Physicians Pulmonary/Sleep MedicineStart: 12-10-2023 End: 99-88-4856Ajswiqdae encounterKaai Jovel MD Work Phone: [facility] PULMONARY & SLEEPStart: 12-08-2023 End: 27-27-0510Cusvxyub SupportSye Meadows DO Work Phone: [facility] - Sleep Disorders Comment on above:ArrivedStart: 11-19-2023 End: 59-12-3376Xsgdwndef encounterTosin Reyes [facility] Internal Medicine - Family MedicineStart: 11-03-2023 End: 59-62-4349UjuqomUpws L Yuhas DO Work Phone: [facility] Phys[facility] Internal Medicine - Family MedicineComment on above:Fibromyalgia syndromeStart: 11-02-2023 End: 08-37-9322xhhpvruebdGOTB L YUHASProMedCorey Hospitaltart: 11-02-2023 End: 57-12-4728Kvimym outpatient visit 25 minutesJohn L Yuhas DO Work Phone: [facility] Internal Medicine - Family MedicineComment on above:Venous insufficiency of both lower extremities (Primary Dx); Chronic heart failure with preserved ejection fraction (CMS-HCC); Acute pulmonary embolism without acute cor pulmonale, unspecified pulmonary embolism type (CMS-HCC); B12 deficiencyStart: 10-30-2023 End: 48-66-8441GyfppsTfgoip R Rettig ELECTROLESS PLATER-PUMP INSTALLATION AND SERVICER Work Phone: [facility] - Heart Failure ClinicComment on above:Shortness of breath; Chronic heart failure with preserved ejection fraction (CMS-HCC)Start: 10-27-2023 End: 53-66-2424tnakgkeoakLVQKV A HUDDLESTONNot AvailableStart: 10-21-2023 End: 52-28-6705IpflrbJcdo L Yuhas DO Work Phone: [facility] Internal Medicine - Family MedicineStart: 10-07-2023 End: 67-86-5329Duruvcctj encounterDaisha Marquez [facility] General SurgeryStart: 10-06-2023 End: 77-90-0348OdhauzCwzu L Yuhas DO Work Phone: [facility] Internal Medicine - Family MedicineComment on above:Spinal stenosis of lumbar region with neurogenic claudication (Primary Dx)Start: 10-02-2023 End: 77-24-7677QucxjdKwkdbn R Rettig ELECTROLESS PLATER-PUMP INSTALLATION AND SERVICER Work Phone: [facility] - Heart Failure ClinicComment on above:Chronic heart failure with preserved ejection fraction (CMS-HCC); Atherosclerosis of knik coronary artery of knik heart without angina pectorisStart: 10-01-2023 End: 00-28-1172QzntmjLqqbt PrestonSycamore [facility] [place] [facility] Internal Medicine - Family MedicineComment on above:Closed wedge compression fracture of T6 vertebra with routine healingStart: 09-30-2023 End: 33-36-9636nwmppjeozlFAWJ L YUOhio State Harding Hospitaltart: 09-30-2023 End: 21-47-5766Mwyizm outpatient visit 25 minutesRajni Steiner DO Work Phone: [facility] Internal Medicine - Family MedicineComment [...] claudication; Peripheral polyneuropathy; B12 deficiencyStart: 09-24-2023 End: 00-13-2962Ebzabo outpatient visit 25 minutesKacey Stephens ELECTROLESS PLATER-GAMBRELER HELPER Work Phone: [facility] Internal Medicine - Family MedicineComment on above:Flu-like symptoms (Primary Dx); Community acquired pneumonia, unspecified laterality; Chronic heart failure with preserved ejection fraction (CMS-HCC)Start: 09-22-2023 End: 47-26-3982OetrnnQuvzz PrestonSycamore [facility], [place] Phys[facility] Internal Medicine - Family MedicineComment on above:Closed wedge compression fracture of T6 vertebra with routine healingStart: 09-10-2023 End: 90-89-1987CfikjfWqvs L Yuhas DO Work Phone: [facility] Internal Medicine - Family MedicineComment on above:Gastro-esophageal reflux disease without esophagitis Start: 09-09-2023 End: 91-61-4263Gyawtejbidzy care manage srvc 14 day dischargeFaithabby Steiner DO Work Phone: [facility] Internal Medicine - Family MedicineComment on above:Closed wedge compression fracture of T6 vertebra with routine healing (Primary Dx); Acute pulmonary embolism without acute cor pulmonale, unspecified pulmonary embolism type ([facility]-HCC); Spinal stenosis of lumbar region with neurogenic claudicationStart: 08-17-2023 End: 16-17-0119Kiwjrifho encounterOrders Support User [facility] - Sleep DisordersComment on above: Sleep Lab (Pap Order)Start: 08-14-2023 End: 84-21-3535AwuswtHhrb McVayEast [facility] Hospital [facility] Pulmonary/Sleep Medicine Comment on above:BONY (obstructive sleep apnea) (Primary Dx); Hypoxemia associated with sleepStart: 08-13-2023 End: 13-79-4283Lccvpxibj encounterKaia Jovel MD Work Phone: [facility] Pulmonary/Sleep MedicineStart: 08-11-2023 End: 70-68-3031Bklnmubz SupportSye Meadows DO Work Phone: [facility] - Sleep Disorders Comment on above:BONY treated with BiPAPStart: 08-10-2023 End: 82-20-9801Tyskgmuxzpcr care manage srvc 14 day dischargeRajni Steiner DO Work Phone: [facility] Internal Medicine - Family MedicineComment on above:Unilateral groin pain, right (Primary Dx); Spinal stenosis of lumbar region with neurogenic claudication; Chronic respiratory failure with hypoxia and hypercapnia (CMS-HCC); Chronic heart failure with preserved ejection fraction (CMS-HCC); BONY treated with BiPAP; Bipolar disorder in partial remission, most recent episode unspecified type ([facility]-HCC)Start: 08-06-2023 End: 82-16-3478Yovlxykvg encounterSnereyda Cantor [facility] Pulmonary/Sleep MedicineStart: 85-31-9583Onmlwcozw Hay Meadows DO Work Phone: [facility] Pulmonary/Sleep MedicineStart: 07-25-2023 End: 18-11-4608Glxvhmtvzp and management of inpatientAshimicaela Lock MD Work Phone: [facility] - Acute Care Comment on above:Chronic respiratory failure with hypoxia and hypercapnia (CMS- HCC) (Primary Dx); COPD exacerbation (CMS-HCC); Acute respiratory failure with hypoxia and hypercapnia (CMS-HCC); HypoxiaStart: 07-01-2023 End: 12-82-0927Xvyiur outpatient visit 25 minutesJoabby Steiner DO Work Phone: [facility] Internal Medicine - Family MedicineComment on above:Fibromyalgia syndrome (Primary Dx); Stage 3a chronic kidney disease (CMS-HCC); BONY treated with BiPAP; Chronic heart failure with preserved ejection fraction (CMS-HCC); Obesity (BMI 30-39.9)Start: 31-28-0685Vyvkkixzl encounterSye Meadows DO Work Phone: [facility] - Sleep Disorders Comment on above:Sleep Lab (Split Night)Start: 06-25-2023 End: 51-54-9100Akjvah outpatient visit 25 vinodGrace Meadows DO Work Phone: [facility] Pulmonary/Sleep MedicineComment on above:BONY treated with BiPAP (Primary Dx); Chronic obstructive pulmonary disease, unspecified COPD type (CMS-HCC); Shortness of breath; Cigarette nicotine dependence in remissionStart: 06-01-2023 End: 87-86-5204Tnqkedwxauke care manage srvc 7 day dischargeJoabby Steiner DO Work Phone: [facility] Internal Medicine - Family MedicineComment on above:Chronic heart failure with preserved ejection fraction (CMS-HCC) (Primary Dx); Bipolar disorder in partial remission, most recent episode unspecified type (CMS-HCC); 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ica [facility] HospitalStart: 04-22-2023 End: 26-23-1992Viovawedtl and management of inpatientDEAN Jose [facility] HospitalStart: 04-21-2023 End: 97-19-3240Meejmwefxt and management of inpatientDEAN Jose MADISONDANIELThe [facility] HospitalStart: 04-20-2023 End: 57-11-0037Hnqeefnabc and management of inpatientDEAN Jose AGUEROThe [facility] HospitalStart: 04-19-2023 End: 27-30-0343Wbdtqgupsm and management of inpatientCHERYL Janae RANGELERSAvita Health System [facility] HospitalStart: 04-18-2023 End: 02-67-8965Lcxxdunory and management of inpatientDEAN Jose [facility] HospitalStart: 04-17-2023 End: 54-48-1343Yyppnxnkic and management of inpatientDEAN Jose MADISONDANIELThe [facility] HospitalStart: 04-16-2023 End: 33-74-7228Puumfzikel and management of inpatientDEAN Jose MADISONDANIELThe [facility] HospitalStart: 04-15-2023 End: 04-84-3365Pywlnitejc and management of inpatientDEAN Jose MADISONDANIELThe [facility] HospitalStart: 04-15-2023 End: 85-08-8374Wlocnxtcvl and management of inpatientJAMEY YSABELIZAvita Health System [facility] HospitalStart: 04-15-2023 End: 77-69-5291Peeilmtusc and management of inpatientVENU TAJ LEÓN [facility] HospitalStart: 54-37-2864Oucqqr outpatient new 30 minutesDale BraunG [facility] NeurosurgeryStart: 12-11-2022 End: 36-19-0350ncesglhygiAlsxvo Andrew SteinFacility:[facility] Hospitaltart: 12-11-2022 End: 88-44-9715aovkmyflcaZZJEFFERSON Fowler Work Phone: [facility] Work Phone: Start: 12-11-2022 End: 11-22-5941Lvdagbo encounter procedureJEFFERSON Fowler Work Phone: [facility] [place] Work Phone: Start: 01-24-2022 End: 56-88-6006xkawbwbxxpObhiywgnheb M HassettFacility:[facility] Hospitaltart: 01-07-2018 End: 97-61-8106Klefbqdhu department patient visitRhabdulaziz Fernandez Facility:[facility] Procedures DateProcedureProcedure DetailPerforming ClinicianStart: 33-60-7267Qlmqp metabolic panel calcium totalJohn L Yuhas DO Work Phone: Start: 28-78-8406Hgimi depression screening assessment Liz Norman RNStart: 02-69-6341Zwzboph of coronary artery bypass grafting History of four vessel coronary artery bypass graftOdessa Cook ELECTROLESS PLATER-PUMP INSTALLATION AND SERVICER Work Phone: Start: 56-36-9472Fldxf depression screening assessment Rajni Yuhas DO Work Phone: Start: 31-11-1733Geqesushygauf metabolic panelJohn L Yuhas DO Work Phone: Start: 06-11-0089Dxvkw depression screening assessment Rajni Yuhas DO Work Phone: Start: 82-53-1933Wegcl depression screening assessment Rajni Gaytanhas DO Work Phone: Start: 87-75-3149Igbizx-up visitFollow-upMANEL BOUMEGOUASStart: 07-60-7866Uypnq depression screening assessmentRajni Steiner DO Work Phone: Start: 31-24-3630Arixytbamvanxg aspir&/inj major jt/bursa w/o usJacristina A Aleksandar DO Work Phone: Start: 39-49-5890Blike shoulder complete minimum 2 viewsEusebia Huertas DO Work Phone: Start: 57-24-5154Jwmogn-up visitFollow-upSHANMISTI Garcia ELSTONStart: 81-59-9211Zbkvw depression screening assessmentRajni Steiner DO Work Phone: Start: 12-72-1329Roaazafdc single/mulling machine operator trigger point 1/2 musclesAmy Deel ARRT Work Phone: Start: 32-91-6591Lxzfp spine 1 view specify levelEusebia Huertas DO Work Phone: Start: 96-58-7756Jvjwa depression screening assessment Rajni Steiner DO Work Phone: Start: 76-02-9184Vwcwm depression screening assessment Rajni Steiner DO Work Phone: Start: 48-00-2869AFMZ INFLUENZA A/INFLUENZA B/SARS-COV-2 VERMarcos Stephens ELECTROLESS PLATER-GAMBRELER HELPER Work Phone: Start: 89-45-9866Lbtyf depression screening assessment Kacey Stephens ELECTROLESS PLATER-GAMBRELER HELPER Work Phone: Start: 85-42-6945Qzwvs depression screening assessment Rajni Steiner DO Work Phone: Start: 21-96-5531Bytml depression screening assessment Rajni Steiner DO Work Phone: Start: 01-41-6442Gidka metabolic panel calcium total Rajni Gimenez MD Work Phone: start: 04-23-8264YJISC OXIMETRY, SPOTRajni Gimenez MD Work Phone: start: 86-29-1322Gxksj metabolic panel calcium total Rajni Gimenez MD Work Phone: start: 59-26-8936Biudt of lactateMary Lock MD Work Phone: Start: 07-25-2023 End: 56-92-8072Qudfsuz bacterial blood aerobic w/id isolatesMary Lock MD Work Phone: Start: 51-53-7646XRQH/FLU A+B/RSV BY NAAT/MOLECULAR (M4RT COLLECTION TUBE)Mary Lock MD Work Phone: Start: 06-05-5883Lkedz gases any combination ph pco2 po2 co2 evd6CzucpfMary Lock MD Work Phone: Start: 07-25-2023 End: 23-52-9112SDNJKXOJGBTYkymha Vohra MD Work Phone: Start: 19-36-3974Otvtvcqbyg exam chest 2 viewsMary Lock MD Work Phone: Start: 88-43-8039NR ED CRITICAL CAREMary Lock MD Work Phone: Start: 87-82-2625Onbhe metabolic panel calcium total Mary Lock MD Work Phone: Start: 70-88-7936Bac routine ecg w/least 12 lds trcg only w/o i&Mary Jane Lock MD Work Phone: Start: 37-13-3517Papyr depression screening assessment Rajni Steiner DO Work Phone: Start: 94-11-5122Mahvf depression screening assessment Rajni Steiner DO Work Phone: Start: 24-43-4469E-ray of lumbar spine, six views including bending viewsJEFFERSON Fowler Work Phone: Start: 36-08-9713Gigpvvi of coronary artery bypass graftingHx of CABGGrace Meadows DO Work Phone: Start: 86-90-5593Sqqzghpulwa observation [Identifier] in Cervix by Cyto stainSeloisemisti Meadows DO Work Phone: Start: 99-07-0010Cbsmn depression screening assessment Grace Meadows DO Work Phone: History of coronary artery bypass graftingHx of CABG Myriam Peacock MD Work Phone: History of coronary artery bypass graftingHistory of four vessel coronary artery bypass graftKacey Sims RN Plan of Treatment DateCare ActivityDetailAuthorStart: 53-35-3100Spkgp BMI ScreeningAdult BMI ScreeningProMedica Health SystemStart: 37-75-1732Xyqehpm ScreeningTobacco ScreeningProMedica Health SystemStart: 65-31-5458Jyizs BMI ScreeningAdult BMI ScreeningProMedica Health SystemStart: 06-67-6719Jdayadx ScreeningTobacco ScreeningProMedica Health SystemStart: 69-31-7687Bgvxf BMI ScreeningAdult BMI ScreeningProMedica Health SystemStart: 73-05-9937Mbgifxg ScreeningTobacco ScreeningProMedica Health SystemStart: 72-95-0170Hfinn BMI ScreeningAdult BMI ScreeningProMedica Health SystemStart: 49-21-4939Ilscfgt ScreeningTobacco ScreeningProMedica Health SystemStart: 55-36-7850Lxbyo BMI ScreeningAdult BMI ScreeningProMedica Health SystemStart: 98-37-6318Iaxgakc ScreeningTobacco ScreeningProMedica Health SystemStart: 10-74-2198Sjrst BMI ScreeningAdult BMI ScreeningProMedica Health SystemStart: 38-36-2312Leyijiwmnn ScreeningDepression ScreeningProMedica Health SystemStart: 32-63-3364Oqsqxbh ScreeningTobacco ScreeningProMedica Health SystemStart: 97-80-5612Aemwl BMI ScreeningAdult BMI ScreeningProMedica Health SystemStart: 29-17-7121Jjybtrw ScreeningTobacco ScreeningProMedica Health SystemStart: 82-21-3252Mquiq BMI ScreeningAdult BMI ScreeningProMedica Health SystemStart: 31-14-1834Spdmxxwphc ScreeningDepression ScreeningProMedica Health SystemStart: 76-87-7547Mudroxt ScreeningTobacco ScreeningProMedica Health SystemStart: 55-45-1853Agjkq BMI ScreeningAdult BMI ScreeningProMedica Health SystemStart: 33-77-3725Rzpltoirca ScreeningDepression ScreeningProMedica Health SystemStart: 05-82-7446Uzhfanl ScreeningTobacco ScreeningProMedica Health SystemStart: 73-55-2794Lomho BMI ScreeningAdult BMI ScreeningProMedica Health SystemStart: 90-89-1871Naxocfqbbc ScreeningDepression ScreeningProAultman Orrville Hospitalca Health SystemStart: 37-42-6042Lusgf BMI ScreeningAdult BMI ScreeningProMedica Health SystemStart: 32-79-0843Kbhxnwg ScreeningTobacco ScreeningCentral Vermont Medical CenterMedica Health SystemStart: 59-27-4177Dgyic BMI ScreeningAdult BMI ScreeningMiami Valley Hospitalca Health SystemStart: 40-49-1020Vjnxbrgejp ScreeningDepression ScreeningMiami Valley Hospitalca Health SystemStart: 38-83-9071Zbveswc ScreeningTobacco ScreeningMiami Valley Hospitalca Health SystemStart: 13-86-8038Tvyhuo Use: Cardiovascular Statin Use: CardiovascularMiami Valley Hospitalca [facility] SystemStart: 84-26-5831Hlgwdo Use: DiabeticStatin Use: DiabeticSamaritan North Health Center SystemStart: 03-15-2025 End: 92-35-3459Vuvposd encounter qgurnzaxr36/19/2025 1:30 PM EST Office Visit [facility] [address] [place] [address] Rajni Steiner, [address] [place], [place] [facility] - Family MedicineStart: 03-08-2025 End: 68-20-6000Xqkhbja encounter oreickllk94/12/2025 3:15 PM EST Office Visit LUZ MOSLEY [address] [place] [address] Sydnie Guerrero, DO [address] [place] [address] [facility]OM[facility] FNR PULMStart: 59-49-0553Zkglaptdidbnzf of varicella zoster vaccineZoster (Shingles) Vaccine (1 of 2)[facility] SystemComment on above:Postponed from 2012 (Patient Refused)Start: 93-98-0697Yimsf BMI ScreeningAdult BMI ScreeningSamaritan North Health Center SystemStart: 03-07-2025 End: 86-85-6516Mgdhv metabolic 2000 panel - Serum or PlasmaBasic Metabolic Panel Lab Routine Chronic diastolic heart failure (CMS-HCC) Expected: 03/07/2025 (Ap proximate), Expires: 02/21/2026[facility] Work Phone: Comment on above:Expected: 03/07/2025 (Approximate), Expires: 02/21/2026Start: 84-24-6259Nxgoqop ScreeningTobacco ScreeningSamaritan North Health Center SystemStart: 02-77-0326Pkheh BMI ScreeningAdult BMI ScreeningSamaritan North Health Center SystemStart: 80-14-4945Fxxelynzd for malignant neoplasm of cervixPap SmearSamaritan North Health Center SystemStart: 11-36-9430Mthizck ScreeningTobacco Screening [facility] Campustart: 02-08-2025 End: 88-79-1607Yukhxlf encounter vhojdqluv38/15/2025 1:30 PM EDT Office Visit [facility] Internal Medicine - Family Medicine [address] [place] [address] Rajni Steiner, [address] [facility] [place], [id number] [facility] Internal Medicine - Family MedicineStart: 02-06-2025 End: 49-29-3040Bzjfmgx encounter syvkdgbnr67/13/2025 3:30 PM EDT Office Visit [facility] [address] [place] [id number] Risa Summers MD [address] [place] [address] [facility] Heart Failure ClinicStart: 71-69-1093Ijkns BMI ScreeningAdult BMI ScreeningProCincinnati Shriners Hospital SystemStart: 08-34-8067Lyxvmpd ScreeningTobacco ScreeningProCincinnati Shriners Hospital SystemStart: 01-04-2025 End: 45-63-6224Fwckhkcpw to same day surgery ixypfl6901/04/2025 10:00 AM EDT - 01/04/2025 11:00 AM EDT Surgery [facility] Endoscopy [address] [place] [id number] Rajni Steiner, DO [address] [place] [address] ESOPHAGOGASTRODUODENOSCOPY DIAGNOSTIC [44868(CPT )][facility] - EndoscopyComment on above:ESOPHAGOGASTRODUODENOSCOPY DIAGNOSTIC [82325 (CPT )]Start: 66-16-0268Sameewosar hospital visit by ztpskkedl84/10/2025 10:00 AM EDT Hospital Encounter [facility] [address] [place] [id number] Rajni Steiner, DO [address] [place] [address] [facility] EndoscopyStart: 01-04-2025 End: 19-22-3371Zebkygsgvxcrtnfkkwpwvdfcyk transoral diagnosticFREMONT [facility] Start: 01-03-2025 End: 68-83-4591bkzulmaxhc42/09/2025 3:50 PM EDT Support Visit [facility] - Pre Admit [address] [place] [id number] [facility] - Pre AdmitStart: 99-26-8536Leznt BMI ScreeningAdult BMI ScreeningProCincinnati Shriners Hospital SystemStart: 30-72-1571Odvinghzrf ScreeningDepression ScreeningProCincinnati Shriners Hospital SystemStart: 74-50-1922Ddwzhma ScreeningTobacco ScreeningProCincinnati Shriners Hospital SystemStart: 12-21-2024 End: 04-42-1067Ccatbcp encounter uyddejqsp79/27/2025 7:30 AM EDT Appointment [facility] Cardiovascular [address] [place] [address] Odessa Cook, ELECTROLESS PLATER-PUMP INSTALLATION AND SERVICER [address] [place] [address] [facility] CardiovascularStart: 12-20-2024 End: 69-82-4331Xfjjxhhor to same day surgery ipkwep0112/20/2024 10:00 AM EDT - 12/20/2024 11:00 AM EDT Surgery [facility] [address] [place] [phone] Rajni Steiner, DO [address] [place] [address] ESOPHAGOGASTRODUODENOSCOPY DIAGNOSTIC [16247(CPT )][facility] EndoscopyComment on above:ESOPHAGOGASTRODUODENOSCOPY DIAGNOSTIC [36658 (CPT )]Start: 12-20-2024 End: 42-02-7456Ojispcpptmakrwumsyaqxyxuzf transoral diagnostic ESOPHAGOGASTRODUODENOSCOPY DIAGNOSTIC microcytic anemia 12/20/2024 10:00 AM EDT [facility]: 61-70-1433Yiwlyqzqpb hospital visit by physician 12/20/2024 10:00 AM EDT Hospital Encounter [facility] - Endoscopy [address] [place] [phone] Rajni Steiner, DO [address] [place] [address] [facility] - EndoscopyStart: 12-19-2024 End: 03-56-8818tfwdjbnweo42/25/2025 2:40 PM EDT Support Visit [facility] - Pre Admit [address] [place] [address] [facility] - Pre AdmitStart: 42-62-4526Mdzsv BMI ScreeningAdult BMI ScreeningProAultman Orrville Hospitalca Health SystemStart: 56-79-8384Vpjiflr ScreeningTobacco ScreeningEast [facility] Health SystemStart: 12-08-2024 End: 63-83-8068gpjtevhcbx27/14/2025 9:00 AM EDT Lab [facility] - Lab [address] [place] [address] [phone] Health [facility] - LabStart: 98-54-6311Qnlxn BMI ScreeningAdult BMI ScreeningProAultman Orrville Hospitalca Health SystemStart: 12-07-2024 End: 41-49-9373Azfbglh encounter lgdlnvifa74/13/2025 2:00 PM EDT [facility] [address] [facility] [place] [address] Rajni Steiner, [address] [facility] [place], [id number] [facility] Internal Medicine - Family MedicineStart: 37-07-1138Avkiykg ScreeningTobacco ScreeningSamaritan North Health Center SystemStart: 22-01-1152Ohnvn BMI ScreeningAdult BMI ScreeningMiami Valley Hospitalca [facility] SystemStart: 12-06-2024 End: 26-21-4084Dykimfn encounter /12/2025 10:30 AM EDT [facility]ment [facility] [address] [place], [place] [address] [address] [phone] Rick Hector [place] - Total RehabStart: 11-28-2024 End: 63-88-7066Aiar complete W/O contrastEcho complete W/O contrast Echocardiography Routine Chronic heart failure with preserved ejection fraction ([facility]) Pulmonary hypertension ([facility]) Nonrheumatic tricuspid valve regurgitation Essential hypertension Atherosclerosis of knik coronary artery of knik heart without angina pectoris History of four vessel coronary artery bypass graft NSTEMI (non-ST elevated myocardial infarction) ([facility]) Expected: 11/28/2024, Expires: 11/28/2025[facility] SystemComment on above:Expected: 11/28/2024, Expires: 11/28/2025Start: 11-28-2024 End: 71-32-6590Feglnjq encounter lwezhvihi63/04/2025 2:00 PM EDT Office Visit [facility] - Heart Failure Clinic [address] [place] [address] Odessa Cook, ELECTROLESS PLATER-[employer] INSTALLATION AND SERVICER [address] [place] [address] [facility] Heart Failure ClinicStart: 11-07-2024 End: 65-11-2869Jpbyovn encounter cbpaexewt96/14/2025 2:30 PM EDT Office [facility] - [facility] Medicine [address] [place] [address] Rajni Steiner, [address] [facility] [place], [place] [facility] Internal Medicine - Family MedicineStart: 11-07-2024 End: 01-82-9462XV Knee - right 3 ViewsX-ray knee right 3 views Imaging Routine Patellar tendinitis of right knee Expected: 11/07/2024, Expires: 11/07/2025 [facility] Centerashley Work Phone: Comment on above:Expected: 11/07/2024, Expires: 11/07/2025Start: 11-02-2024 End: 65-24-8264Sqsnggo encounter dnpfczofs98/09/2025 8:30 AM EDT Appointment [facility] - Radiology [address] [place] [address] [phone] Health West Hospital - RadiologyStart: 11-01-2024 End: 14-65-0526Dnlhyxn encounter ivpluadub22/08/2025 4:[address] [facility] - Total Rehab [address] [place] [address] Cervicogenic headacheProGreil Memorial Psychiatric Hospital - Total RehabComment on above:Cervicogenic headacheStart: 81-37-5944Rsvjj BMI ScreeningAdult BMI ScreeningSamaritan North Health Center SystemStart: 53-47-8214Zqtrpznnjl ScreeningDepression ScreeningProCincinnati Shriners Hospital SystemStart: 19-74-1086Gpijifk ScreeningTobacco ScreeningSamaritan North Health Center SystemStart: 10-27-2024 End: 81-88-4852OP Gastrointestinal tract upper Views W air contrast PO and W barium contrast POFluoroscopy upper GI with esophagus Imaging Routine Nausea and vomiting, unspecified vomiting type Expected: 10/27/2024, Expires: 10/27/2025 [facility] SystemComment on above:Expected: 10/27/2024, Expires: 10/27/2025Start: 41-49-6132Cvjvc BMI ScreeningAdult BMI ScreeningProCincinnati Shriners Hospital SystemStart: 42-54-9426Mfdnmgj ScreeningTobacco ScreeningSamaritan North Health Center SystemStart: 10-07-2024 End: 26-75-2571Nwfrmwq encounter bfqlsbowc04/13/2025 11:30 AM EDT Office Visit [facility] Internal Medicine - Family Medicine [address] [place], [place] [address] [address] Rajni Steiner, DO [address] [place] [address] [facility] Internal Medicine - Family MedicineStart: 39-41-1248Hboyu BMI ScreeningAdult BMI ScreeningProAultman Orrville Hospitalca [facility] SystemStart: 37-12-2569Spqsihkpeg ScreeningDepression ScreeningProMedica Health SystemStart: 16-96-9006Dawxmey ScreeningTobacco ScreeningProMedica Health SystemStart: 17-15-7151Dtqts BMI ScreeningAdult BMI ScreeningProMedica Health SystemStart: 60-94-0386Odxngpgudy ScreeningDepression ScreeningProMedica Health SystemStart: 06-04-4423Lwxewwi ScreeningTobacco ScreeningProMedica Health SystemStart: 09-21-2024 End: 96-29-3591Onxodyr encounter kxldbbayw08/28/2025 3:00 PM EDT Office Visit [facility] [address] [place] [address] Sydnie Guerrero, [address] [place] [address] ArrivedNOMS FNR PULMComment on above:ArrivedStart: 09-17-2024 Adult BMI ScreeningAdult BMI ScreeningProMedica Health SystemStart: 09-08-2024 Adult BMI ScreeningAdult BMI ScreeningProMedica Health SystemStart: 09-08-2024 Depression ScreeningDepression ScreeningProMedica Health SystemStart: 09-08-2024 Tobacco ScreeningTobacco ScreeningProMedica Health SystemStart: 41-07-5946Bchww BMI ScreeningAdult BMI ScreeningProMedica Health SystemStart: 08-56-7626Eskowux ScreeningTobacco ScreeningProMedica Health SystemStart: 05-02-5113Flmwf BMI ScreeningAdult BMI ScreeningProMedica Health SystemStart: 71-53-7151Tbrwypbvvq ScreeningDepression ScreeningProMedica Health SystemStart: 00-12-9614Mtxvglz ScreeningTobacco ScreeningProMedica Health SystemStart: 81-28-3503Odrjw BMI ScreeningAdult BMI ScreeningProMedica Health SystemStart: 12-58-3741Juvceuf ScreeningTobacco ScreeningProMedica Health SystemStart: 44-84-9328Comvn BMI ScreeningAdult BMI ScreeningProMedica Health SystemStart: 14-95-3287Cxisnol ScreeningTobacco ScreeningProMedica Health SystemStart: 52-62-7768Xpyfm BMI ScreeningAdult BMI ScreeningProMedica Health SystemStart: 06-54-7187Yeeduoxcrh ScreeningDepression ScreeningProMedica Health SystemStart: 15-13-0016Wpzaktd ScreeningTobacco ScreeningProMedica Health SystemStart: 06-29-2024 End: 80-28-9530Oxixkwp encounter cyjxowsph99/05/2025 3:00 PM EST Office Visit [facility] [address] [place] [address] Sydnie Guerrero, DO [address] [place] [place] [address] [facility] FNDasha PULMStart: 79-30-3924Scepw BMI ScreeningAdult BMI ScreeningProMedica Health SystemStart: 17-54-0826Mytivzy ScreeningTobacco ScreeningProMedica Health SystemStart: 06-08-2024 End: 78-63-8131Nmpsfyg encounter cmjxprxou31/12/2025 1:00 PM EST Office Visit [facility] Internal Medicine - Family Medicine [address] [place] [address] Rajni gonsalez, [address] [facility], [id number] [facility] Internal Medicine - Family MedicineStart: 19-96-7351Hydxu BMI ScreeningAdult BMI ScreeningProMedica Health SystemStart: 67-71-4359Bqfjzdedru ScreeningDepression ScreeningProMedica Health SystemStart: 33-81-7914Dvtcpzd ScreeningTobacco ScreeningProMedica Health SystemStart: 40-88-4068Mdwzq BMI ScreeningAdult BMI ScreeningProMedica Health SystemStart: 39-66-3365Vvxxyor ScreeningTobacco ScreeningProMedica Health SystemStart: 03-17-2024 End: 69-24-2282Nsflpqs encounter afogxvuxy50/21/2024 1:00 PM EST Consult [facility] [address] [place] [address] Sydnie Guerrero DO [address] [place] [address] ArrivedNOMS PULMComment on above:ArrivedStart: 03-10-2024 End: 97-56-8721Orjbyju encounter atlmuiuli59/14/2024 3:00 PM EST Office Visit [facility] Pul[facility]/Sleep Medicine [address] [place] [address] Grace Meadows, DO [address] [address] [facility] Pulmonary/Sleep MedicineStart: 03-07-2024 End: 48-54-4989Zvbkuzs encounter cqrwhflav77/11/2024 1:00 PM EST Office Visit [facility] Internal Medicine - Family Medicine [address] [place] [address] Rajni Steiner, DO [address] [place], [place] [facility] Internal Medicine - Family MedicineStart: 02-19-2024 End: 83-20-2673Yvefcfr encounter htfuxtris42/25/2024 10:45 AM EDT Office Visit [facility] Cardiology [address] [facility] [address] [place] [address] Alex Aoms MD [address] [place] [address] Saqib Giles MD [address] [place] [address]-619-1258 (Work) [facility] CardiologyStart: 02-09-2024 End: 76-96-6361Sglkiwo encounter kzfbnkyiz86/15/2024 1:30 PM EDT Office Visit [facility] [address] [place] [address] Eusebia Huertas, DO [address] [place] [address] [facility]ICSStart: 01-21-2024 End: 82-03-0231Dkmaxmv encounter /26/2024 10:00 AM EDT Office Visit [facility] Pulmonary/Sleep Medicine [address] [place] [address] Grace Meadows, DO [address] [address] [facility] Pulmonary/Sleep MedicineStart: 01-19-2024 End: 27-09-9881Rrwkiau encounter procedureNOMS CI ORTHOPAEDICSStart: 01-14-2024 End: 66-66-0739Dsbgdin encounter ahqrgbnhd95/19/2024 3:00 PM EDT Office Visit [facility] Pulmonary/Sleep Medicine [address] [place] [address] Grace Meadows, DO [address] [address] [facility] Pulmonary/Sleep MedicineStart: 01-12-2024 End: 74-74-9198Xcoxxez encounter jqmosozqg75/17/2024 10:45 AM EDT Office Visit [facility] [address] [place] [address] Eusebia Huertas, DO [address] [place] [address] [facility]OPA[facility]ICSStart: 01-04-2024 End: 68-81-6985Yosyarj encounter cokwewdjz63/09/2024 1:00 PM EDT Office Visit [facility] Internal Medicine - Family Medicine [address] [place] [address] Rajni Steiner, DO [address] [facility] [id number] [facility] Internal Medicine - Family MedicineStart: 12-29-2023 End: 94-23-1003Mpifksg encounter jqzhdqzmy45/03/2024 10:45 AM EDT Office Visit [facility] [address] [facility] 150 [place] [address] Eusebia Huertas, [address] [facility] [address] [place] [address] Compression fracture of T6 vertebra with routine healing, subsequent encounter; Compression fracture of T8 vertebra with routine healing, subsequent encounter; Osteoporotic compression fracture of vertebra with routine healing, subsequent encounterNOMS CI ORTHOPAEDICSComment on above:Compression fracture of T6 vertebra with routine healing, subsequent encounter; Compression fracture of T8 vertebra with routine healing, subsequent encounter; Osteoporotic compression fracture of vertebra with routine healing, subsequent encounterStart: 65-42-0366Ernonrbkk vaccinationInfluenza VaccineMiami Valley Hospitalca Health SystemStart: 12-07-2023 End: 59-62-2260Htaujtvb Ejtpfsi6612/07/2023 8:00 PM EDT Clinical Support [facility] - Sleep Disorders [address] [place] [address] [place] [address] Grace Meadows, DO [address] [address] [facility] - Sleep DisordersStart: 12-03-2023 End: 55-65-1576Xbgoldt encounter cxodbgzup32/08/2024 10:00 AM EDT Office Visit [facility]Sleep [facility] [address] [facility] [place] [address] Grace Meadows, DO [address] [address] [facility] Pulmonary/Sleep MedicineStart: 11-02-2023 End: 58-35-5850Fmahrog encounter kxtfygqml17/08/2024 3:30 PM EDT Office Visit [facility] Internal Medicine - Family Medicine [address] [place] [address] Rajni Steiner, DO [address] [place], [place] [facility] Internal [facility] - [facility] MedicineStart: 10-06-2023 End: 42-21-9102Gtdotto encounter procedureK[facility] - Mammogram DEXAStart: 09-30-2023 End: 00-62-9589Lftnvdr encounter /05/2024 1:30 PM EDT Office Visit [facility] Internal Medicine - Family Medicine [address] [place] [address] Rajni Steiner, DO [address] [place], [place] [facility] Internal [facility] - [facility] MedicineStart: 09-11-2023 End: 11-63-8026Orgvzcs encounter obbrvhret13/17/2024 1:00 PM EDT Appointment [facility] Reggie [facility] - Mammography [address] [place] [address] [phone] Harris [facility] - MammographyStart: 09-10-2023 End: 30-22-8194Tldqfov encounter procedureK[facility] - VascularStart: 09-10-2023 End: 73-49-4814Wmgmxcx encounter dhbfxxdwa43/16/2024 8:15 AM EDT Appointment [facility] - MRI Imaging [address] [place] [address] Rajni Steiner, DO [address] [place] [address] [facility] - MRI ImagingStart: 09-09-2023 End: 32-40-9031Qccpqym encounter hzvynsygs32/15/2024 1:00 PM EDT Office Visit [facility] Physicians Internal Medicine - Family Medicine [address] [place] [address] Rajni Steiner, DO [address] [facility] [place], [id number] [facility] Physicians Internal Medicine - Family MedicineStart: 08-11-2023 End: 69-72-5955Lrmbzpza Kqqybiz2408/11/2023 8:00 PM EDT Clinical Support [facility] - Sleep Disorders [address] [place] [address] Grace Meadows, DO [address] [address] [facility] - Sleep DisordersStart: 08-10-2023 End: 05-12-5880Wzucjdh encounter uiwgqgbri12/15/2024 1:00 PM EDT Office [facility] [address] [place] [address] Rajni Steiner, DO [address] [facility] [place], [id number] [facility]icians Internal Medicine - Family MedicineStart: 08-03-2023 End: 34-07-7699Sfllgsk encounter xtjihcwyr78/08/2024 10:00 AM EDT Office Visit [facility] - Heart Failure Clinic [address] [place] [address] Cynthia Buchanan, ELECTROLESS PLATER-[employer] INSTALLATION AND SERVICER [address] [place], [place] [address] [facility] - Heart Failure ClinicStart: 07-27-2023 End: 74-73-0435Ryqzfvz encounter edoalyyvd13/01/2024 8:30 AM EDT Office Visit [facility] Heart Failure Clinic [address] [place] [address] Cynthia Buchanan, ELECTROLESS PLATER[employer] INSTALLATION AND SERVICER [address] [place] [address] [facility] - Heart Failure ClinicStart: 07-01-2023 End: 53-42-4864Tliixml encounter procedureKettering Health [facility] - Pulmonary FunctionStart: 06-29-2023 End: 86-46-8152Ounbicg encounter uqdgfvkvb46/04/2024 12:00 PM EST Office Visit [facility] Internal Medicine - Family Medicine [address] [place] [address] Rajni Steiner, DO [address] [place] [address] [facility] Internal Medicine - Family MedicineStart: 06-25-2023 End: 32-35-5794Znmgxsc encounter ldyclvlcm01/29/2024 10:00 AM EST Office Visit [facility] Pulmonary/Sleep Medicine [address] [address] Grace Meadows, DO [address] [address] [facility] Pulmonary/Sleep MedicineStart: 06-01-2023 End: 45-79-4933Nchgaus encounter ozsvhuukv48/05/2024 1:30 PM EST Office Visit [facility] Internal Medicine - Family Medicine [address] [place] [address] Rajni Steiner, DO [address] [place] [id number] [facility]icians Internal Medicine - Family MedicineStart: 01-89-5564Bosujrobm vaccination Influenza VaccineSamaritan North Health Center SystemStart: 02-40-7226RGI ( or age 60+ yrs) (1 - Risk 60-74 years 1-dose series)RSV ( or age 60+ yrs) (1 - Risk 60-74 years 1-dose series)[facility] SystemStart: 08-06-2021 Depression ScreeningDepression ScreeningSamaritan North Health Center SystemStart: 2012 Administration of varicella zoster vaccineZoster (Shingles) Vaccine (1 of 2) [facility] SystemStart: 02-83-9071Jlfdnridsojzuk of varicella zoster vaccineZoster (Shingles) Vaccine (1 of 2)[facility] SystemStart: 01-20-2798BZfJ,Tdap and Td Vaccines (1 - Tdap)DTaP,Tdap and Td Vaccines (1 - Tdap)[facility] SystemStart: 87-17-8900Byxux BMI Follow Up PlanAdult BMI Follow Up PlanSamaritan North Health Center SystemStart: 98-69-3009Qvjqsisv foot examination Diabetic Foot ExamProCincinnati Shriners Hospital SystemStart: 76-35-7680Ewthxsfl screening Diabetic Ophthalmology ExamUNC Hospitals Hillsborough Campustart: 81-34-2122Xzvpfx Use: CardiovascularStatin Use: CardiovascularSamaritan North Health Center SystemStart: 1962 Statin Use: DiabeticStatin Use: DiabeticSamaritan North Health Center SystemStart: 1962 Tobacco CounselingTobacco CounselingMercy Health Urbana HospitalBacteria identified in Blood by Aerobe cultureProAultman Orrville Hospitalca Work Phone: End: 62-26-3810Dmkjo metabolic 1999 panel - Serum or PlasmaBasic Metabolic Panel Lab Routine Chronic heart failure with preserved ejection fraction (CMS-HCC) 1 Occurrences starting 11/02/2023 until 11/01/2024[facility] SystemComment on above:1 Occurrences starting 11/02/2023 until 11/01/2024 End: 78-35-1599Aojkf metabolic 2000 panel - Serum or PlasmaBasic Metabolic Panel Lab Routine Chronic heart failure with preserved ejection fraction ([facility]) P ulmonary hypertension ([facility]) Nonrheumatic tricuspid valve regurgitation Essential hypertension Atherosclerosis of knik coronary artery of knik heart without angina pectoris History of four vessel coronary artery bypass graft NSTEMI (non-ST elevated myocardial infarction) ([facility]) 1 Occurrences starting 11/28/2024 until 11/28/2025[facility] Work Phone: Comment on above:1 Occurrences starting 11/28/2024 until 11/28/2025 End: 27-21-4752Raneu metabolic 2000 panel - Serum or PlasmaBasic Metabolic Panel Lab Routine Chronic heart failure with preserved ejection fraction ([facility]) E ssential hypertension Pulmonary hypertension ([facility]) Nonrheumatic tricuspid valve regurgitation Atherosclerosis of knik coronary artery of knik heart without angina pectoris History of four vessel coronary artery bypass graft 1 Occurrences starting 11/30/2024 until 11/30/2025[facility] Work Phone: Comment on above:1 Occurrences starting 11/30/2024 until 11/30/2025 End: 66-20-3854Qqbbu metabolic 2000 panel - Serum or PlasmaBasic Metabolic Panel Lab Routine Chronic diastolic heart failure ([facility]) Pulmonary hypertension ( [facility]) Nonrheumatic tricuspid valve regurgitation 1 Occurrences starting 02/06/2025 until 02/06/2026[facility] Work Phone: Comment on above:1 Occurrences starting 02/06/2025 until 02/06/2026 End: 17-67-4846VQK W Auto Differential panel - BloodCBC auto differential Lab Routine Chronic heart failure with preserved ejection fraction ([facility]) 1 Occurrences starting 11/02/2023 until 11/01/2024[facility] Work Phone: Comment on above:1 Occurrences starting 11/02/2023 until 11/01/2024 End: 66-69-4153JFP W Auto Differential panel - BloodCBC auto differential Lab Routine Stage 3a chronic kidney disease ([facility]) 1 Occurrences starting 0 07/07/2024 until 07/07/2025[facility] Work Phone: Comment on above:1 Occurrences starting 07/07/2024 until 07/07/2025 End: 07-29-2612Ecgurbbwgzdwu metabolic 2000 panel - Serum or PlasmaComprehensive metabolic panel Lab Routine Stage 3a chronic kidney disease ([facility]) 1 Occurrences starting 07/07/2024 until 07/07/2025ProAultman Orrville HospitalMediGain SystemComment on above:1 Occurrences starting 07/07/2024 until 07/07/2025 End: 77-10-5921Lkxjmlaussrshe vitamin b-12Vitamin B12 Lab Routine B12 deficiency 1 Occurrences starting 11/02/2023 until 11/01/2024Mi[facility] Valley HospitalMediGain SystemComment on above:1 Occurrences starting 11/02/2023 until 11/01/2024 End: 25-88-7068Fhckhkpnepkhns vitamin b-12Vitamin B12 Lab Routine B12 deficiency 1 Occurrences starting 07/07/2024 until 07/07/2025ProAultman Orrville HospitalMediGain SystemComment on above:1 Occurrences starting 07/07/2024 until 07/07/2025 End: 73-48-5188KzoztrvfjkgqujprjddogrcelbRYA GI Routine Microcytic anemia Gastro-esophageal reflux disease without esophagitis 1 Occurrencesstarting 12/15/2024 until 12/15/2025[facility] Work Phone: Comment on above:1 Occurrences starting 12/15/2024 until 12/15/2025Esophagogastroduodenoscopy transoral diagnostic ESOPHAGOGASTRODUODENOSCOPY DIAGNOSTIC Microcytic anemiaFREMONT ENDOSCOPY End: 68-38-3336Nxxtodulck A1c/Hemoglobin.total in BloodHemoglobin A1c Lab Routine IFG (impaired fasting glucose) 1 Occurrences starting 07/07/2024 until 07/07/2025ProAultman Orrville HospitalMediGain SystemComment on above:1 Occurrences starting 07/07/2024 until 07/07/2025 End: 79-37-8560Tokabyaouy A1c/Hemoglobin.total in BloodHemoglobin A1c Lab Routine Type 2 diabetes mellitus with stage 3a chronic kidney disease, without long-term current use of insulin ([facility]) 1 Occurrences starting 10/27/2024 until 10/27/2025[facility] Work Phone: Comment on above:1 Occurrences starting 10/27/2024 until 10/27/2025Hemoglobin A1c/Hemoglobin.total in BloodHemoglobin A1c Lab Routine Type 2 diabetes mellitus with stage 3a chronic kidney disease, without long-term current use of insulin ([facility]) 10/27/2024 4:57 PM [facility] End: 97-04-0765Quhjw 1996 panel - Serum or PlasmaLipid profile Lab Routine 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 ([facility]) 1 Occurrences starting 07/07/2024 until 07/07/2025 [facility] [employer] SystemComment on above:1 Occurrences starting 07/07/2024 until 07/07/2025 End: 65-36-2194Stxzdlmia [Mass/volume] in Serum or PlasmaMagnesium Lab Routine Chronic heart failure with preserved ejection fraction ([facility]) 1 Occurrences starting 11/02/2023 until 11/01/2024Mi[facility] Valley HospitalMediGain SystemComment on above:1 Occurrences starting 11/02/2023 until 11/01/2024 End: 24-19-2953Omxpnditkduhcjb 4 or more parameters with PAP titration Polysomnography 4 or more parameters with PAP titration Sleep Center Routine BONY (obstructive sleepapnea) Hypoxemia associated with sleep 1 Occurrences starting 08/14/2023 until 08/13/2024[employer] Work Phone: Comment on above:1 Occurrences starting 08/14/2023 until 08/13/2024 End: 05-05-0460Rdufqhrak function test Spirometry (Flow Volume Loop) pre/post short acting bronchodilator w/ DLCO (diffusion study)Pulmonary function test Spirometry (Flow Volume Loop) pre/post short acting bronchodilator w/ DLCO ( diffusion study) PFT Routine Chronic obstructive pulmonary disease, unspecified COPD type ([facility])1 Occurrences starting 06/25/2023 until 06/24/2024[facility] CenterWellpe[facility] SystemComment on above:1 Occurrences starting 06/25/2023 until 06/24/2024 End: 86-22-0852Utkcj Night Sleep StudySplit Night Sleep Study Sleep Center Routine BONY treated with BiPAP 1 Occurrences starting 06/25/2023 until 06/24/2024[employer] Work Phone: Comment on above:1 Occurrences starting 06/25/2023 until 06/24/2024 Immunizations Immunization DateImmunizationNotesCare TrjhitneZjdmdnzn54-07-7628cygsfdzjec skin test; purified protein derivative solution, intradermalLeanne Cesar DO Work Phone: [facility] WestQzhcxoxjlz26-76-6256uaqxdhjvcc skin test; unspecified formulationKacey Sims [facility] CenterYqajkq08-19-3248itwwtqhkvn skin test; purified protein derivative solution, intradermalLeanne Cesar DO Work Phone: noMiss[facility] CenterCfstdbxhha73-33-4609mtpghzychv skin test; unspecified formulationKacey Sims [facility] Payers DatePayer CategoryPayerPolicy [id number] 2025Unknown 2024Medicare (Managed Care)[id number] 2024Medicare [id number] [id number] 2024Private Health Uerghfukx09-04-3147Jfpb-jrd [id number] 2022Medicare [id number] Health Insurance [id number] [id number] [id number] [id number] [id number] 2.16.840.1.919584.3.579.2.387864-81-5386Cgwtzbl4544630 2.16.840.1.942671.3.579.2.065163-47-3208Jjxceyx0149911 2.16.840.1.141663.3.579.2.601331-38-9832Zwrrxzi0715653 2.16.840.1.281611.3.579.2.251068-15-9710Xhtcxbt7949313 2.16.840.1.977800.3.579.2.293468-95-1688Zqjbmqo6571434 2.16.840.1.242385.3.579.2.992831-88-4544Lryuxse5053526 2.16.840.1.209554.3.579.2.827365-84-5188Khckeou2188767 2.16.840.1.998991.3.579.2.934284-36-8212Sndibtq1363081 2.16.840.1.348491.3.579.2.540383-06-1956Gyxqwmx7696962 2.16.840.1.315835.3.579.2.882603-57-9903Qthimqy2688733 2.16.840.1.054701.3.579.2.244988-48-4184Aexsbca0619928 2.16.840.1.443035.3.579.2.472785-87-1236Oufqelp7234378 2.16.840.1.946260.3.579.2.920395-58-2072Gquhanb8524477 2.16.840.1.657181.3.579.2.339031-40-0402Lubnfss3144687 2.16.840.1.402001.3.579.2.435011-94-1128Aykgbvm924021624 2.16.840.1.141734.3.579.2.743580-43-1824Phcetjx44152086 2.16.840.1.377572.3.579.2.015245-56-6841Vqikhzi40981347 2.16.840.1.090530.3.579.2.284678-68-4520Dtnlpjo11146318 2.16.840.1.527366.3.579.2.497806-21-5597Sbqahwb73049542 2.16.840.1.630566.3.579.2.728344-85-8007Whuauwa6428732 2.16.840.1.665554.3.579.2.381190-77-0671Adjmihk7254800 2.16840.1.913101.3.579.2.242164-35-3542Imvhqll2113491 2.16840.1.121615.3.579.2.728062-08-8920Zsarlfd7213711 2.16.840.1.653559.3.579.2.385234-21-5361Byafsia6215612 2.16.840.1.444844.3.579.2.927829-14-9610Ichvdqt4102258 2.16.840.1.108542.3.579.2.148794-11-9128Rtpjjgi7003014 2.16840.1.083747.3.579.2.003017-45-7323Moratbj5676272 2.16.840.1.707491.3.579.2.567068-07-2726Drnekuo3926191 2.16840.1.032082.3.579.2.285482-45-3998Nqwjymp1405974 2.16.840.1.358924.3.579.2.614883-15-5065Xgygdwh662163180 2.16840.1.972811.3.579.2.582517-60-1477Nyjcobv239110602 2.16.840.1.393039.3.579.2.271257-28-9129Wbthwny257671445 2.16.840.1.201142.3.579.2.550844-47-2837Aruxmrm976388202 2.16.840.1.609812.3.579.2.996663-50-3062Xhxwmuf772483807 2.16.840.1.361988.3.579.2.623967-21-2189Snzcnqm59698284 2.16.840.1.662873.3.579.2.929419-88-0685Erqpjyb66687632 2.840.1.789958.3.579.2.547718-73-1207Xiewnpi309805276 2.16840.1.287982.3.579.2.256584-99-5825Iizwamt89669871 2.16.840.1.534881.3.579.2.726183-43-7629Jhiqken090190856 2.16.840.1.046535.3.579.2.44687-57-3973Iffgmkj311538077 2.16840.1.685067.3.579.2.58026-07-7260Lfgwxjj425094849 2.16.840.1.042126.3.579.2.40650-60-8646Yuhcvvz524895489 2.16.840.1.243241.3.579.2.34547-62-4700Ujtsdzy115759794 2.16.840.1.980554.3.579.2.81599-30-0287Crnaicv977152034 2.16840.1.912259.3.579.2.64242-20-0847Kqrhhah480291294 2.16840.1.719124.3.579.2.406697-23-9811Somoqgi411080138 2.840.1.329529.3.579.2.442341-68-8055Wjedcmk851885397 2.840.1.731468.3.579.2.290249-19-5673Hucjjqe978691651 2.840.1.035636.3.579.2.181665-00-4858Qpeifnp981563464 2.0.1.342290.3.579.2.885344-37-1322Ytsvfgx803984363 2.840.1.014529.3.579.2.518149-63-3604Fieczfy034482748 2.0.1.794971.3.579.2.723665-17-0326Tuuetus784269173 2.840.1.261570.3.579.2.001514-27-6965Phaegus056966887 2..1.316234.3.579.2.074886-38-7549Wkamnmx594126478 2..1.313798.3.579.2.238137-60-8677Pmwwmxp306386217 2..1.448232.3.579.2.798782-11-3389Klurlee801070054 2.0.1.863033.3.579.2.490399-47-3221Gmtnkqg786256584 2.840.1.227665.3.579.2.864880-27-2402Tmqqxsu395135222 2.840.1.479778.3.579.2.609913-46-2954Scvgotd152513194 2.840.1.530218.3.579.2.809360-72-3727Xqybfwf902019563 2.16.840.1.422515.3.579.2.784937-14-9969Slbvpys109244362 2.16.840.1.378724.3.579.2.182768-42-6341Ivctxar987730398 2.16.840.1.436350.3.579.2.471617-54-2444Lafpzhp182066592 2.16.840.1.379724.3.579.2.079627-61-7645Woonajw121428473 2.16.840.1.786057.3.579.2.1286MedicaidMedicaid Out of [id number] 2.16.840.1.337251.19 [id number] 2.16.840.1.644557.3.579.2.774Tgftism13976025 2.16840.1.270991.3.579.2.531 Social History DateTypeDetailFacilityStart: 09-25-1981 End: 78-13-7620Wlfwdgh smoking status NHISSmoker (finding)[facility]: 87-14-6144Bkh [facility]: 07-25-2023 End: 60-43-6461Srh [facility]: 09-24-2023 End: 58-46-0638Mowsuhn smoking status NHISEx-smokerUNC Hospitals Hillsborough Campustart: 09-25-1981 End: 10-53-5177Wgoocwg of tobacco useCigarette SmokerSamaritan North Health Center System Start: 01-22-2024 End: 28-06-6033Wviwmob use and exposureFormer smokeless tobacco userUNC Hospitals Hillsborough Campustart: 01-22-2024 End: 95-36-7633Gnwgopnzb beverage intakeEx-drinker (finding)[facility] SystemStart: 07-25-2023 End: 18-40-3426Guwroll of Social functionSamaritan North Health Center SystemStart: 61-40-9152Vbt assigned at birthNot on [facility] CenterStart: 09-25-1981 End: 23-23-9766Bccmshq smoking status NHISSmokes tobacco dailySamaritan North Health Center SystemStart: 08-11-2023 End: 20-30-4411Stvianv use and exposureSmokeless tobacco non-userSamaritan North Health Center SystemHas the electric, gas, oil, or water company threatened to shut off services in your home in past 12MoNOhioHealth Berger HospitalAre you now , , , , never or living with a partner? [facility] HospitalHow often to you have a drink containing alcohol?Never [facility] Campustart: 10-37-9513Pyi many standard drinks containing alcohol do you have on a typical day?Patient does not drinkSamaritan North Health Center SystemHow hard is it for you to pay for the very basics like food, housing, medical care, and heatingSomewhat hardProWooster Community HospitalDo you feel stress - tense, restless, nervous, or anxious, or unable to sleep at night because your mind is troubled all the time - these days [OSQ]Only a littleUNC Hospitals Hillsborough Campustart: 89-66-8982Grrwapw Comment5-6 cigerettes a daySamaritan North Health Center SystemStart: 60-38-8413Dsgiwjk Commentlast use 15 years agoSamaritan North Health Center SystemStart: 77-02-5429CbnRcpblh (finding)[facility] SystemStart: 65-29-3268Nnidwc identityIdentifies as female gender (finding)[facility] SystemStart: 86-15-2408Criuie orientationHeterosexual (finding)[facility] HospitalHistory of tobacco useChews TobaccoSamaritan North Health Center SystemStart: 04-29-2023 End: 76-07-0849Lpbxctv intakeCurrent non-drinker of alcohol (finding)[facility] SystemHow hard is it for you to pay for the very basics like food, housing, medical care, and heatingNot very hardMercy Health Urbana Hospital Medical Equipment Procedure CodeEquipment CodeEquipment Original TextEquipment IdentifierDatesSj Monreal 2.75x28 Rx - [id number], [id number] FDAStart: 47-44-9426FhsSj Monreal 2.75x8 Rx - [id number], [id number] FDAStart: 01-09-2020 Goals DatePatient GoalDesired Activity/StatePersonal health goalComment on above: Evaluation of progress towards goal: under assessmentPersonal health goalComment on above: Evaluation of progress towards goal: feeling better, monitor for home Y2Ugctayie health goalComment on above: Evaluation of progress towards goal: Pt's goal is to go to SNF at discharge for short term rehab. -DEENA LOREDO 04/25/23 3:55 PM Personal health goalComment on above: Evaluation of progress towards goal: feeling betterPersonal health goalPersonal health goal Functional Status DateAssessmentResultFacilityMercy Health Urbana Hospital Clinical Notes 12-11-2022 to 02-24-2025 Note Date & BchwIkrtVfjodyvp80-81-1006 Miscellaneous Notes* Telephone Encounter - Dejah Barger RN - 02/24/2025 1:00 AM EDT Please sign and route if you agree. Thank you VENKATA 09/01/24 ABN CMP 02/22/25 - h/o CKD stage 3 documented in this encounterMercy Health Urbana Hospital10-31-2025 Telephone encounter Note* Telephone Encounter - Dejah Barger RN - 02/24/2025 1:00 AM EDT Please sign and route if you agree. Thank you VENKATA 09/01/24 ABN CMP 02/22/25 - h/o CKD stage 3 [facility]10-15-2025 Telephone encounter Note* Telephone Encounter - Magali Kelly - 02/08/2025 11:19 AM EDT Hi, this is to be cool calling for Dr Cruz. I really need to move my appointment up as soon as possible. My phone number [phone]. My date is 124 3. Thank you. Patient would like to move appointment up attempted to return call but was unable to reach patient.Correction, patient returned call,, Pt is willing to travel to [place], She states that BiPap is not working correctly . [employer] is the company she uses for her bi pap, and was told nothing wrong, that pt must be using the mask wrong. She would like to move her appt up. [facility] WestJvhdggpqwb46-33-0672 Miscellaneous Notes* Telephone Encounter - Magali Kelly - 02/08/2025 11:19 AM EDT Hi, this is to be cool calling for Dr Cruz. I really need to move my appointment up as soon as possible. My phone number [phone]. My date is 124 3. Thank you. Patient would like to move appointment up attempted to return call but was unable to reach patient.Correction, patient returned call,, Pt is willing to travel to [place], She states that BiPap is not working correctly . [employer] is the company she uses for her bi pap, and was told nothing wrong, that pt must be using the mask wrong. She would like to move her appt up. documented in this encounterSaint Joseph Hospital WestZzsasngrde96-69-8335 History of Present illness Narrative* Risa Summers MD - 02/06/2025 3:30 PM EDT Images from the original note were not included. [facility] Patient: Monet Recinos Date of : 1960 Age: 64 y.o. Date of Encounter: 02/06/2025 REASON FOR VISIT: Chronic heart failure. Dear Rajni Steiner Jr, DO We had the [facility]. Ms. Recinos is [...] enlargement, trace AI, trace to mild MR, xfzh-wn-jkvkmphc TR,RVSP 44 mmHg PFT 07/01/2023: FEV 1 [...] mouth in the morning. 90 tablet 3 yqnunjkcuu-rgixnjen-ylovvkpqmc (BREZTRI AEROSPHERE) 160-9-4.8 mcg/actuation HFA aerosol inhaler [...] 1 tablet before bedtime. 60 tablet 2 vlijlj-oeyhjigxb-llt,al-simeth (FIRST-MOUTHWASH BLM) 75-787-191-40 mg/30mL mouthwash Take 5 mL by mouth [...] failure/COPD, on oxygen; follows with pulmonology at [facility] History of PE Iron-deficiency anemia, underwent workup [...] ordination of care. 02/06/2025 Risa Summers M.D., [facility], [facility] [address] [place] [address]. [facility] [address] [place] [address] Fax This note was completed using a voice senior hadoop developer system. Every effort was made to ensure accuracy. However, inadvertent computerized senior hadoop developer errors may be present. * Jazmín Acevedo RN - 02/06/2025 12:00 PM EDT Instructed patient on daily weights, fluid restriction, and low sodium diet. Advised of s/s requiring ER treatment or to call the office. Heart failure education provided: Yes. Patient verbalized understanding. documented in this encounterMercy Health Urbana Hospital10-13-2025 Instructions* Patient Instructions* Risa Summers MD [...] by calling the Heart Failure Clinic at [phone]. Please call 911 for emergencies. documented in this encounterMercy Health Urbana Hospital10-13-2025 Miscellaneous Notes* Telephone Encounter - Tosin Reyes CMA - 02/06/2025 9:45 AM EDT Franci from [facility] pain management called and stated that [...] AM EDT Notified Franci documented in this encounterMercy Health Urbana Hospital10-13-2025 Telephone encounter Note* Telephone Encounter - Tosin Reyes CMA - 02/06/2025 9:45 AM EDT Franci from [facility] pain management called and stated that patient voiced concern of that she wanted to restart the gabapentin. Doctor was wondering why it was discontinued? [facility]10-13-2025 Telephone encounter Note* Telephone Encounter - Rajni Steiner DO - 02/06/2025 9:45 AM EDT Message noted. Side effects. We replaced it with pregabalin. I do not know who Franci is, but she should know these things. And if she does not, she should not be asking the questions. [facility]10-13-2025 Telephone encounter Note* Telephone Encounter - Tosin Reyes CMA - 02/06/2025 9:45 AM EDT Notified Franci [facility]10-10-2025 Miscellaneous Notes* Telephone Encounter - Antoinette Sanchez CNA - 02/03/2025 1:55 PM EDT LEFT VOICEMAIL REMINDER ABOUT APPOINTMENT ON THURSDAY 3:30. documented in this encounterMercy Health Urbana Hospital10-10-2025 Telephone encounter Note* Telephone Encounter - Antoinette Sanchez CNA - 02/03/2025 1:55 PM EDT LEFT VOICEMAIL REMINDER ABOUT APPOINTMENT ON THURSDAY 3:30. [facility]10-01-2025 Telephone encounter Note* Telephone Encounter - Fabricio Lange - 01/25/2025 3:36 PM EDT Friend called- Norma has gone without Bi-pap x3 days - she said [employer] needs order for Bi-pap w settingsas well as - Reg O2 concentrator, and personal concentrator To [employer] -[place] If already sent pls disregard - ty [facility] WestFidjvjbwas26-92-6359 Miscellaneous Notes* Telephone Encounter - Fabricio Lange - 01/25/2025 3:36 PM EDT Friend called- Norma has gone without Bi-pap x3 days - she said [employer] needs order for Bi-pap w settingsas well as - Reg O2 concentrator, and personal concentrator To [employer] -[place] If already sent pls disregard - ty documented in this encounterSaint Joseph Hospital WestVrtzoeoprj44-65-7857 Miscellaneous Notes* Perioperative Nursing Note - Patricia Huertas RN - 01/03/2025 3:50 PM EDT Preoperative Education Checklist- General Surgery date: 01/04/25 Surgery time: 1000 Arrival time: 0900 1. Bring a photo ID and your insurance card with you the day of surgery. You will check in at the main lobby of the [facility]- registration desk is straight ahead as soon as you walk in. Tell them you are here for surgery. 2. If you have a Living Will/Durable Power of Inspector Tubes for Health Care that is not on [...] after you have bathed. 5. NO nail estonian/acrylic on at least one finger. If you are having a hand, wrist or foot surgery then all nail estonian and artificial/acrylic nails must be removed from [...] please call the Preadmission Testing office at [phone], Mon.-Fri. 7 a.m.-3 p.m. Leave a voicemail [...] Stop taking 0 days prior to procedure axcrfozxxh-jjlczqnz-cxkhegyeek (BREZTRI AEROSPHERE) 160-9-4.8 mcg/actuation HFA aerosol inhaler [...] days prior to procedure documented in this encounterMercy Health Urbana Hospital09-09-2025 Nurse Note* Perioperative Nursing Note - Patricia Huertas RN - 01/03/2025 3:50 PM EDT Preoperative Education Checklist- General Surgery date: 01/04/25 Surgery time: 1000 Arrival time: 0900 1. Bring a photo ID and your insurance card with you the day of surgery. You will check in at the main lobby of the [facility]- registration desk is straight ahead as soon as you walk in. Tell them you are here for surgery. 2. If you have a Living Will/Durable Power of Inspector Tubes for Health Care that is not on [...] after you have bathed. 5. NO nail estonian/acrylic on at least one finger. If you are having a hand, wrist or foot surgery then all nail estonian and artificial/acrylic nails must be removed from [...] please call the Preadmission Testing office at [phone], Mon.-Fri. 7 a.m.-3 p.m. Leave a voicemail [...] Stop taking 0 days prior to procedure tqglnbhxsg-zzmdbbju-kbhyqxflaf (BREZTRI AEROSPHERE) 160-9-4.8 mcg/actuation HFA aerosol inhaler [...] 0 days prior to procedure [facility]09-09-2025 Telephone encounter Note* Telephone Encounter - Magali Kelly - 01/03/2025 9:36 AM EDT Pt gets bi-pap machine from [employer] Pt was told that she due for a renewal order for her Bipap, also her condenser Phone number is for [employer] [facility] [id number] Miscellaneous Notes* Telephone Encounter - Magali Kelly - 01/03/2025 9:36 AM EDT Pt gets bi-pap machine from [employer] Pt was told that she due for a renewal order for her Bipap, also her condenser Phone number is for [employer] documented in this encounterSaint Joseph Hospital [id number] Miscellaneous Notes* Perioperative Nursing Note - Patricia Huertas RN - 12/19/2024 2:40 PM EDT Preoperative Education Checklist- General Surgery date: 12/20/24 Surgery time: 1000 Arrival time: 0900 1. Bring a photo ID and your insurance card with you the day of surgery. You will check in at the main lobby of the [facility]- registration desk is straight ahead as soon as you walk in. Tell them you are here for surgery. 2. If you have a Living Will/Durable Power of Inspector Tubes for Health Care that is not on [...] after you have bathed. 5. NO nail estonian/acrylic on at least one finger. If you are having a hand, wrist or foot surgery then all nail estonian and artificial/acrylic nails must be removed from [...] please call the Preadmission Testing office at [phone], Mon.-Fri. 7 a.m.-3 p.m. Leave a voicemail [...] Stop taking 0 days prior to procedure pipevikryu-yyoqoqel-trknoiugob (BREZTRI AEROSPHERE) 160-9-4.8 mcg/actuation HFA aerosol inhaler [...] days prior to procedure documented in this encounterMercy Health Urbana Hospital08-25-2025 Nurse Note* Perioperative Nursing Note - Patricia Huertas RN - 12/19/2024 2:40 PM EDT Preoperative Education Checklist- General Surgery date: 12/20/24 Surgery time: 1000 Arrival time: 0900 1. Bring a photo ID and your insurance card with you the day of surgery. You will check in at the main lobby of the [facility]- registration desk is straight ahead as soon as you walk in. Tell them you are here for surgery. 2. If you have a Living Will/Durable Power of Inspector Tubes for Health Care that is not on [...] after you have bathed. 5. NO nail estonian/acrylic on at least one finger. If you are having a hand, wrist or foot surgery then all nail estonian and artificial/acrylic nails must be removed from [...] please call the Preadmission Testing office at [phone], Mon.-Fri. 7 a.m.-3 p.m. Leave a voicemail [...] Stop taking 0 days prior to procedure jmmxzswcsv-vjnnliqf-bgyvzgxzxj (BREZTRI AEROSPHERE) 160-9-4.8 mcg/actuation HFA aerosol inhaler [...] 0 days prior to procedure [facility]08-21-2025 History of Present illness Narrative* Rajni [...] Exam Vitals reviewed. Exam conducted with a pain coordinator present (Friend/POA). Constitutional: General: She is not [...] EGD; Future Stage 3a chronic kidney disease ([facility]) -patient now back on torsemide 20 [...] -further recommendations following testing documented in this encounterMercy Health Urbana Hospital08-14-2025 Miscellaneous Notes* Telephone Encounter - Liz [...] chronic respiratory failure with hypoxia and hypercapnia ([facility]) Active Problems: Bipolar 2 disorder, major depressive episode ([facility]) Stage 3a chronic kidney disease ([facility] Pulmonary hypertension ([facility]) Discharge Specialty: Other *Name of Discharging Facility: [facility] Date of Facility Discharge: 12/04/24-12/06/2024 Date of Interactive Contact and Name of Training And Development Professional: 12/08/24 0956 Unable to reach patient. M [...] AM EDT Message noted. documented in this encounterMercy Health Urbana Hospital08-14-2025 Telephone encounter Note* Telephone Encounter - [...] Discharge Specialty: Other *Name of Discharging Facility: [facility] Date of Facility Discharge: 12/04/24-12/06/2024 Date of Interactive Contact and Name of Training And Development Professional: 12/08/24 0956 Unable to reach patient. LVM [...] Other Services Utilized/Needed by the Patient: NA [employer]08-14-2025 Telephone encounter Note* Telephone Encounter - Rajni Steiner DO - 12/08/2024 7:48 AM EDT Message noted. [employer]08-06-2025 Miscellaneous Notes* Telephone Encounter - Fareed Norton RN - 11/30/2024 8:25 AM EDT ----- Message from PRAKASH Espinosa sent at 11/30/2024 11:52 AM EDT ----- Have her repeat labs again next week ----- Message ----- From: Kacey Sims RN Sent: 11/30/2024 8:28 AM EDT To: PRAKASH Linares Seen Thursday in [facility], restarted torsemide and you wanted labs in 1 week. She completed thenext day. ----- Message ----- From: Lab, Background User Sent: 11/29/2024 7:25 PM EDT To: [facility] Clinical Staff documented in this encounterMercy Health Urbana Hospital08-06-2025 Telephone encounter Note* Telephone Encounter - Fareed Norton RN - 11/30/2024 8:25 AM EDT ----- Message from PRAKASH Espinosa sent at 11/30/2024 11:52 AM EDT ----- Have her repeat labs again next week ----- Message ----- From: Kacey Sims RN Sent: 11/30/2024 8:28 AM EDT To: PRAKASH Linares Seen Thursday in [facility], restarted torsemide and you wanted labs in 1 week. She completed thenext day. ----- Message ----- From: Lab, Background User Sent: 11/29/2024 7:25 PM EDT To: [facility] Clinical Staff [facility]08-04-2025 History of Present illness Narrative* PRAKASH Linares - 11/28/2024 2:00 PM EDT Images from the original note were not included. [facility] Patient: Monet [...] mouth in the morning. 90 tablet 3 xlyiiwfoqt-hmqmnjos-bwaorzfepp (BREZTRI AEROSPHERE) 160-9-4.8 mcg/actuation HFA aerosol inhaler [...] 42 mm per mercury 11/15 TTE 3. [place] coronary ASCVD status post CABG x4 08/15 [...] heart rates therefore will start her on Rfxniu42 mg at nighttime Get blood work in [...] Odessa Cook CNP Advanced Heart Failure Services [facility] This note was completed using a voice senior hadoop developer system. Every effort was made to ensure accuracy. However, inadvertent computerized senior hadoop developer errors may be present. PRAKASH Linares 11/28/24 1444 * Jazmín Acevedo RN - 11/28/2024 2:00 PM EDT Instructed patient on daily weights, fluid restriction, and low sodium diet. Advised of s/s requiring ER treatment or to call the office. Heart failure education provided: No. Patient verbalized understanding. Pt scheduled for echo while in office. Instructions reviewed with pt. documented in this encounterMer[facility]08-04-2025 Instructions* Patient Instructions* PRAKASH Linares - [...] by calling the Heart Failure Clinic at [phone]. Please call 911 for emergencies. documented in this encounterMercy Health [facility]07-14-2025 History of Present illness Narrative* Rajni [...] Exam Vitals reviewed. Exam conducted with a pain coordinator present (Friend/POA). Constitutional: General: She is not [...] in the morning., Disp: 90tablet, Rfl: 3 rjcddksoal-wjnajmaz-ucgfonvfef (BREZTRI AEROSPHERE) 160-9-4.8 mcg/actuation HFA aerosol inhaler, [...] Testing No results found. Rajni Steiner DO., [facility] Office: [phone] documented in this encounterMercy Health [facility]07-14-2025 Evaluation note* Diagnosis Hiatal hernia with GERD- Primary Stage 3a chronic kidney disease ([facility]) Patellar tendinitis of right knee Gastro-esophageal reflux disease without esophagitis Venous insufficiency of both lower extremities documented in this encounter [facility]07-09-2025 NoteFL UGI WITH ESOPHAGUS HISTORY: Nausea [...] by Kai Finn MD on 11/02/2024 10:14 [facility] 10-27-2024 History of Present illness Narrative* Rajni Steiner DO - 10/27/2024 4:15 PM EDT IM PROGRESS NOTE Patient - Monet Recinos Age - 64 y.o. - 1960 ASSESSMENT & PLAN 1. Type 2 diabetes mellitus with stage 3a chronic kidney disease, without long- term current use of insulin ([facility]) (Primary) - last A1c 6.5% -goals of [...] Chronic heart failure with preserved ejection fraction ([facility]) - GDMT: Aldactone, Jardiance, furosemide - will continue to wean off of propanolol over the next 2 weeks - at that time we can decide on replacement beta-georgi - propranoloL (INDERAL) 40 mg tablet; Take 1 tablet (40 mg total) by mouth in the morning. 4. Stage 3a chronic kidney disease ([facility]) - GFR ranges 45-54 over the past [...] daily. Unless she takes a dose of [place] along with the pantoprazole, she will get [...] Exam Vitals reviewed. Exam conducted with a pain coordinator present (Friend/POA). Constitutional: General: She is not [...] in the morning., Disp: 90tablet, Rfl: 3 udxfefoxoo-sgafqhse-dolywwdmix (BREZTRI AEROSPHERE) 160-9-4.8 mcg/actuation HFA aerosol inhaler, [...] Testing No results found. Rajni Steiner DO., [facility] Office: [phone] documented in this encounterMercy Health [facility]07-03-2025 Evaluation note* Diagnosis Type 2 diabetes mellitus with stage 3a chronic kidney disease, without long-term current use of insulin ([facility] Primary Venous insufficiency of both lower extremities Chronic heart failure with preserved ejection fraction ([facility]) Stage 3a chronic kidney disease ([facility]) Nausea and vomiting, unspecified vomiting type Arthritis of left sacroiliac joint Cervicogenic headache Headache documented in this encounter [facility]06-13-2025 History of Present illness Narrative* Rajni Cardoso Obdulia, DO - 10/07/2024 11:30 AM EDT IM PROGRESS NOTE Patient - Monet Recinos Age - 64 [facility] 1960 [id number] ASSESSMENT & PLAN 1. Cervicogenic headache (Primary) [...] Chronic heart failure with preserved ejection fraction ([facility]) -GDMT: Jardiance, propanolol, spironolactone -may need further [...] Exam Vitals reviewed. Exam conducted with a pain coordinator present (Friend/POA). Constitutional: General: She is not [...] in the morning., Disp: 90tablet, Rfl: 3 lguesxqfnj-zytcnzal-iuvdcmlmho (BREZTRI AEROSPHERE) 160-9-4.8 mcg/actuation HFA aerosol inhaler, [...] Testing No results found. Rajni Steiner DO., [facility] Office: [phone] documented in this encounterCentral Vermont Medical CenterWellpepper [id number] History of Present illness Narrative* Sydnie Guerrero [...] needed for wheezing, Disp:18 g, Rfl: 5 Dyhguya-Jqvqeihxjsy-Mpzcabgxvq (Breztri Aerosphere) 160-9-4.8 MCG/ACT aerosol, Inhale 2 [...] disorder Breast injury CAD (coronary artery disease) ([facility]) Cervical disc disorder Chronic kidney disease Cigarette nicotine dependence in remission 10/16/2020 Congestive heart failure (CHF) ([facility]) COPD (chronic obstructive pulmonary disease) ([facility]) COVID-19 04/29/2023 Dementia ([facility]) Dependence on other enabling machines and devices 04/29/2023 Depression ([facility]) Difficulty in walking, not elsewhere classified 04/28/2023 Former smoker 09/26/2022 GERD (gastroesophageal reflux disease) Hyperlipidemia ([facility]) 04/29/2023 Liver disease Lumbosacral disc disease Memory loss Myocardial infarction ([facility]) Nicotine dependence 04/29/2023 Obesity with body mass index 30 or greater 05/14/2023 BONY (obstructive sleep apnea) Osteoarthritis Panic disorder ([facility]) Personal history of nicotine dependence 04/29/2023 Pneumonia, unspecified organism 04/29/2023 Polyneuropathy, unspecified 04/29/2023 Presence of aortocoronary bypass graft 04/29/2023 Psoriasis Psoriasis, unspecified 05/02/2023 PTSD (post-traumatic stress disorder) ([facility]) Shortness of breath Solitary pulmonary nodule 04/29/2023 Stage 3a chronic kidney disease (HCC) ([facility]) 07/07/2024 Thoracic disc disease Unspecified dementia, mild, without behavioral disturbance, psychotic disturbance, mood disturbance, and anxiety ([facility]) 04/30/2023 Ventricular tachycardia ([facility]) 09/20/2024 Documented on 08/23/2020 Visual impairment Weakness [...] Chronic obstructive pulmonary disease, unspecified COPD type ([facility]) - albuterol HFA 90 mcg/act inhaler; Inhale 2 puffs every 4 (four) hours if needed for wheezing - Rbskwth-Jcqjgrbkaah-Ulnhxtnhkh (Breztri Aerosphere) 160-9-4.8 MCG/ACT aerosol; Inhale 2 puffs in the morning and 2 puffs before bedtime. Chronic respiratory failure with hypoxia and hypercapnia ([facility]) BONY (obstructive sleep apnea) COPD -- at [...] Sydnie Guerrero DO documented in this encounterSaint Joseph Hospital [id number] History of Present illness Narrative* Myriam Peacock MD - 09/01/2024 11:15 AM EDT Monetnakia Recinos Date of visit: 09/01/2024 Date of : 1960 Age: 64 y.o. 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 Hyperglycemia Cigarette nicotine dependence in remission Depression Liver disease Visual impairment BONY treated with BiPAP Chronic heart failure with preserved ejection fraction ([facility]) Essential hypertension Hx of hyperlipidemia Former smoker Agoraphobia Anxiety Chipped tooth GERD (gastroesophageal reflux disease) Low back pain Osteoarthritis PTSD (post-traumatic stress disorder) Bipolar 2 disorder, major depressive episode ([facility]) Cannabis use disorder, mild, abuse Major depressive disorder Panic disorder Weakness BMI 40.0-44.9, adult ([facility]) Chronic respiratory failure with hypoxia and hypercapnia ([facility]) Closed wedge compression fracture of T6 vertebra with routine healing Arthritis of left sacroiliac joint Chronic obstructive pulmonary disease, unspecified COPD type ([facility]) Stage 3a chronic kidney disease ([facility]) Allergies Allergen Reactions Penicillins Anaphylaxis Other Reaction(s): [...] mouth in the morning. 90 tablet 3 wfzkgmwvoc-uhpfvrdl-zxfmseiksu (BREZTRI AEROSPHERE) 160-9-4.8 mcg/actuation HFA aerosol inhaler [...] longer uses a BIPAP 01/28/23 Bipolar disorder ([facility]) Breast injury CHF (congestive heart failure) ([facility]) Chipped tooth Chronic kidney disease COPD (chronic obstructive pulmonary disease) ([facility]) Coronary artery disease Dementia ([facility]) Depression Diarrhea frequent bouts /involuntary Dizziness Fracture, vertebral, lumbar closed ([facility]) GERD (gastroesophageal reflux disease) Headache History of coronary artery bypass graft 08/14/2020 Liver disease Low back pain Lump or mass in breast Memory loss Myocardial infarction ([facility]) Apr 2009, swith stent placement Obesity BONY treated with BiPAP 07/31/2022 Osteoarthritis Panic disorder Psoriasis PTSD (post-traumatic stress disorder) Pulmonary emboli ([facility]) Rib fracture 09/2023 lt Rotator cuff tear L Shortness of breath Sleep apnea Visual impairment glasses No data recorded No data recorded No data recorded Past Surgical History: Procedure Laterality Date BREAST BIOPSY BREAST CYST EXCISION Cardiac catheterization N/A 01/09/2020 Performed by Yefri Khan MD at [facility] Cardiac catheterization-LV Cors N/A 08/06/2020 Performed by Hazel Painting MD at [facility] SECTION CHOLECYSTECTOMY COLONOSCOPY N/A 04/03/2017 Performed by Jose Beaver MD at [facility] Coronary angiogram and left ventricular gram/pressure N/A 01/09/2020 Performed by Yefri Khan MD at [facility] CORONARY ANGIOPLASTY WITH STENT PLACEMENT CORONARY ARTERY BYPASS GRAFT X4/ THOMPSON/ SVG X3 / RIGHT UPPER LEG OPEN VEIN HARVEST/ LEFT UPPER LEG OPEN VEING HARVEST /GINETTE N/A 08/13/2020 Performed by Leroy Meng MD at [facility] Drug eluting stent left anterior descending N/A 01/09/2020 Performed by Yefri Khan MD at [facility] EXCISION SEROMA LOWER EXTREMITY Left 10/07/2022 Performed by Victor Hugo Vincent DO at [facility] Intravascular ultrasound coronary N/A 08/06/2020 Performed by Hazel Painting MD at [facility] Intravascular ultrasound coronary N/A 01/09/2020 Performed by Yefri hKan MD at [facility] NOTCHARGED/Thrombolysis arterial initial treatment N/A 01/09/2020 Performed by Yefri Khan MD at [facility] TONSILLECTOMY Family History Problem [...] min Stress: No Stress Concern Present (07/25/2023) [employer] - Occupational Stress Questionnaire Feeling of Stress : Only a little Recent Concern: Stress - Stress Concern Present (07/25/2023) [employer] - Occupational Stress Questionnaire Feeling of Stress : Very much Social Connections: Moderately Isolated (07/25/2023) Social Connection and Isolation Panel [NHANES] Frequency of Communication with Friends and Family: Three times a week Frequency of Social Gatherings with Friends and Family: Three times a week Attends Orthodox Services: More than 4 times per year [...] Referring Physician: Rajni Steiner DO [address] [place] [address] documented in this encounterMer[facility]03-[facility] Miscellaneous Notes* Telephone Encounter - Ching Gay RN - 07/15/2024 8:20 AM EDT Last OV 02/19/24 Last CMP 07/07/24.slm documented in this [facility]03-21-2025 Telephone encounter Note* Telephone Encounter - Ching Gay RN - 07/15/2024 8:20 AM EDT Last OV 02/19/24 Last CMP 07/07/24.slm [employer] [id number] History of Present illness Narrative* Rajni Steiner, [...] Chronic obstructive pulmonary disease, unspecified COPD type ([facility]) -COPD GOLD class B -overall stable -continue Breztri 2 puffs b.i.d. with p.r.n. albuterol 3. Stage 3a chronic kidney disease ([facility]) -GFR ranges 44-49 over the past 6 months -renal protective strategies were reviewed with the patient -continue to avoid NSAIDs, gabapentin -repeat electrolytes, kidney function and GFR to assess for improvement or worsening - CBC auto differential; Future - Comprehensive metabolic panel; Future 4. Chronic respiratory failure with hypoxia and hypercapnia ([facility]) -GOLD class B -patient with stationary and portable oxygen at home -I encouraged her to wear the portable oxygen as much as possible. -most desaturations, when she is active, and this is when she needs it the most. 5. Chronic heart failure with preserved ejection fraction ([facility]) -improved -no longer requiring loop diuretic -GDMT includes Jardiance, spironolactone, propanolol [place] 6. Bipolar 2 disorder, major depressive episode ([facility]) -sees Psychiatry on a routine basis -current regimen includes venlafaxine, Lamictal, doxepin, clonazepam, aripiprazole 7. BMI 40.0-44.9, adult ([facility]) -ongoing problem which has worsened due to missing some of her medications -given her overall CV risk, may benefit from initiation of GLP 1 treatment 8. 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 Exam conducted with a pain coordinator present (Friend/POA). Constitutional: General: She is not [...] in the morning., Disp: 90tablet, Rfl: 3 goqhqctmpv-ttculwdh-gdhvrmjbcx (BREZTRI AEROSPHERE) 160-9-4.8 mcg/actuation HFA aerosol inhaler, [...] Testing No results found. Rajni Steiner DO., [facility] Office: [phone] documented in this encounterMercy [facility]12-[facility] History of Present illness Narrative* Rajni Steiner DO - 03/29/2024 3:15 PM EST IM PROGRESS NOTE Patient - Monet Recinos Age - 63 y[facility] 1960 [id number] ASSESS[facility] & PLAN Video Visit via Real-time Synchronous Audiovisual Provider Location: [facility] [place] [facility] [place] [facility] [address] [facility] [id number] Patient Location: Patient's home Video Visit Consent [...] that there are some limitations compared to [id number]-[id number] evaluations. The patient consented to the presence [...] visit. Physical Exam Exam conducted with a pain coordinator present (Friend/POA). Constitutional: General: She is not [...] THE MORNING, Disp: 90 tablet, Rfl: 3 phkowjiryh-wgegzbpl-rvoqybmzck (BREZTRI AEROSPHERE) 160-9-4.8 mcg/actuation HFA aerosol inhaler, [...] Testing No results found. Rajni Steiner DO., [facility] Office: [phone] documented in this encounterMer[facility]12-03-2024 Miscellaneous Notes* Telephone Encounter - Monica [...] a video visit today documented in this encounterMercy Health [facility]12-03-2024 Telephone encounter Note* Telephone Encounter - Monica Johnston CMA - 03/29/2024 9:13 AM EST Pts friend called stated pt is having bursing on her legs for no reason , they would like to know if something to be concerned about or maybe a side effect from the pregabalin ? [facility] [employer] [id number] Telephone encounter Note* Telephone Encounter - Rajni Steiner DO - 03/29/2024 9:13 AM EST Message noted. What is happening to her legs? [facility]12-03-2024 Telephone encounter Note* Telephone Encounter - Monica Johnston CMA - 03/29/2024 9:13 AM EST They are brusing , she's not hirting or bumping anything they are just popping up [facility]12-03-2024 Telephone encounter Note* Telephone Encounter - Rajni Steiner DO - 03/29/2024 9:13 AM EST Message noted. This is not a side effect from pregabalin. Is she taking aspirin for any reason? [facility]12-03-2024 Telephone encounter Note* Telephone Encounter - Monica Johnston CMA - 03/29/2024 9:13 AM EST She's not taking any aspirin lately bc she's out . She did take some excedrin today . They started about a week ago. [facility]12-03-2024 Telephone encounter Note* Telephone Encounter - Monica Johnston CMA - 03/29/2024 9:13 AM EST She is worried they are blood clots , they just want to know if its something to worry about ? Friend also just stated that she is starting to swelling up again [facility]12-03-2024 Telephone encounter Note* Telephone Encounter - Rajni Steiner DO - 03/29/2024 9:13 AM EST Message noted. Hard to say without seeing it. We can put her in a slot tomorrow, or try a video visit today [facility]11-21-2024 History of Present illness Narrative* Sydnie Guerrero [...] for her, however she states that the [employer] would not accept his testing. She is [...] tablet Take 80 mg by mouth Daily Qhnlzkn-Tglctqewibj-Tniqtuotzy (Breztri Aerosphere) 160-9-4.8 MCG/ACT aerosol Inhale calcitonin, [...] visit. Past Medical History: Diagnosis Date Agoraphobia ([facility]) Angina at rest ([facility]) Anxiety BiPAP (biphasic positive airway pressure) dependence Bipolar disorder ([facility]) Breast injury CAD (coronary artery disease) ([facility]) Cervical disc disorder Chronic kidney disease Cigarette nicotine dependence in remission 10/16/2020 Congestive heart failure (CHF) ([facility]) COPD (chronic obstructive pulmonary disease) ([facility]) COVID-19 04/29/2023 Dementia ([facility]) Dependence on other enabling machines and devices 04/29/2023 Depression ([facility]) Difficulty in walking, not elsewhere classified 04/28/2023 Former smoker 09/26/2022 GERD (gastroesophageal reflux disease) Liver disease Lumbosacral disc disease Memory loss Myocardial infarction ([facility]) BONY (obstructive sleep apnea) Osteoarthritis Panic disorder ([facility]) Personal history of nicotine dependence 04/29/2023 Pneumonia, unspecified organism 04/29/2023 Polyneuropathy, unspecified 04/29/2023 Presence of aortocoronary bypass graft 04/29/2023 Psoriasis ([facility]) Psoriasis, unspecified ([facility]) 05/02/2023 PTSD (post-traumatic stress disorder) ([facility]) Shortness of breath Solitary pulmonary nodule 04/29/2023 Thoracic disc disease Unspecified dementia, mild, without behavioral disturbance, psychotic disturbance, mood disturbance, and anxiety ([facility]) 04/30/2023 Visual impairment Weakness 05/28/2023 Past Surgical [...] send a script for a POC to [facility] today. Tobacco use -- she does continue to smoke on a daily basis. She is currently at a half pack or less. We did have a 4 minute discussion regarding the importance of smoking cessation at today's office visit. Follow up in about 3 months (around 06/17/2024) for COPD, in [place] office. Sydnie Guerrero DO documented in this encounterSaint Joseph Hospital [id number] History of Present illness Narrative* Rajni Stenier DO - 03/07/2024 1:00 PM EST IM [...] 0 3. Stage 3a chronic kidney disease ([facility]) -GFR ranges from 36 to 53 over the past year. -renal protective strategies were reviewed with patient, in particular avoidance of NSAIDs and Welch 2 inhibitors -we are evaluating and reducing or eliminating all prescription medications which could affect the kidney -continue to monitor. ACR ordered today - CBC auto differential; Future 4. Chronic heart failure with preserved ejection fraction ([facility]) -GDMT: Jardiance 10 mg daily, propanolol 80 mg daily, spironolactone 25 mg daily, torsemide. -continue home oxygen 5. 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 Exam conducted with a pain coordinator present (Friend/POA). Constitutional: General: She is not [...] THE MORNING, Disp: 90 tablet, Rfl: 3 clthjtqtxk-zwmbtbyh-dpbonwvpwx (BREZTRI AEROSPHERE) 160-9-4.8 mcg/actuation HFA aerosol inhaler, [...] on 12/17/2023 11:39 AM Rajni Steiner DO., [facility] Office: [phone] documented in this [facility]10-28-2024 Miscellaneous Notes* Telephone Encounter - Monica [...] EDT Message noted. Yes documented in this [facility]10-28-2024 Telephone encounter Note* Telephone Encounter - Monica Johnston CMA - 02/22/2024 12:27 PM EDT Pts' friend norma called was wondering what you were going to do with the pregabalin there were no refills , pt stated the gabapentin worked better but needed to know if you were going to refill the pregabalin or in crease the dosage ? [facility]10-28-2024 Telephone encounter Note* Telephone Encounter - Rajni Steiner DO - 02/22/2024 12:27 PM EDT Message noted. Needs a recheck appointment to discuss [facility]10-28-2024 Telephone encounter Note* Telephone Encounter - Cathleen Arreola - 02/22/2024 12:27 PM EDT Comes in 03/07 is that okay? [facility]10-28-2024 Telephone encounter Note* Telephone Encounter - Rajni Steiner DO - 02/22/2024 12:27 PM EDT Message noted. Yes [facility]10-25[facility] History of Present illness Narrative* Saqib Giles MD - 02/19/2024 10:45 AM EDT Monet Recinos Date of visit: 02/19/2024 Date of : 1960 Age: 63 y.o. 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 ([facility]) Hyperglycemia Cigarette nicotine dependence in remission Depression Liver disease Visual impairment BONY treated with BiPAP Chronic heart failure with preserved ejection fraction ([facility]) Essential hypertension Hx of hyperlipidemia Former smoker Agoraphobia Anxiety Chipped tooth GERD (gastroesophageal reflux disease) Low back pain Osteoarthritis PTSD (post-traumatic stress disorder) Bipolar 2 disorder, major depressive episode ([facility]) Cannabis use disorder, mild, abuse Major depressive disorder Panic disorder Weakness BMI 40.0-44.9, adult ([facility]) Chronic respiratory failure with hypoxia and hypercapnia ([facility]) Acute pulmonary embolism without acute cor pulmonale, unspecified pulmonary embolism type ([facility]) Closed wedge compression fracture of T6 vertebra [...] MOUTH IN THE MORNING 90 tablet 3 qdwnkummuk-wvjpxfjh-vdyctqfimu (BREZTRI AEROSPHERE) 160-9-4.8 mcg/actuation HFA aerosol inhaler [...] History: Diagnosis Date Agoraphobia Angina at rest ([facility]) Anxiety BiPAP (biphasic positive airway pressure) dependence Patient states she no longer uses a BIPAP 01/28/23 Bipolar disorder ([facility]) Breast injury CHF (congestive heart failure) ([facility]) Chipped tooth Chronic kidney disease COPD (chronic obstructive pulmonary disease) ([facility]) Coronary artery disease Dementia ([facility]) Depression Diarrhea frequent bouts /involuntary Dizziness Fracture, vertebral, lumbar closed ([facility]) GERD (gastroesophageal reflux disease) Headache History of coronary artery bypass graft 08/14/2020 Liver disease Low back pain Lump or mass in breast Memory loss Myocardial infarction ([facility]) Apr 2009, swith stent placement Obesity BONY treated with BiPAP 07/31/2022 Osteoarthritis Panic disorder Psoriasis PTSD (post-traumatic stress disorder) Pulmonary emboli ([facility]) Rib fracture 09/2023 lt Rotator cuff tear L Shortness of breath Sleep apnea Visual impairment glasses No data recorded No data recorded No data recorded Past Surgical History: Procedure Laterality Date BREAST BIOPSY BREAST CYST EXCISION Cardiac catheterization N/A 01/09/2020 Performed by Yefri Khan MD at [facility] Cardiac catheterization-LV Cors N/A 08/06/2020 Performed by Hazel Painting MD at [facility] SECTION CHOLECYSTECTOMY COLONOSCOPY N/A 04/03/2017 Performed by Jose Beaver MD at [facility] Coronary angiogram and left ventricular gram/pressure N/A 01/09/2020 Performed by Yefri Khan MD at [facility] CORONARY ANGIOPLASTY WITH STENT PLACEMENT CORONARY ARTERY BYPASS GRAFT X4/ THOMPSON/ SVG X3 / RIGHT UPPER LEG OPEN VEIN HARVEST/ LEFT UPPER LEG OPEN VEING HARVEST /GINETTE N/A 08/13/2020 Performed by Leroy Meng MD at [facility] Drug eluting stent left anterior descending N/A 01/09/2020 Performed by Yefri Khan MD at [facility] EXCISION SEROMA LOWER EXTREMITY Left 10/07/2022 Performed by Victor Hugo Vincent DO at [facility] Intravascular ultrasound coronary N/A 08/06/2020 Performed by Hazel Painting MD at [facility] Intravascular ultrasound coronary N/A 01/09/2020 Performed by Yefri Khan MD at [facility] NOTCHARGED/Thrombolysis arterial initial treatment N/A 01/09/2020 Performed by Yefri Khan MD at [facility] TONSILLECTOMY Family History Problem [...] min Stress: No Stress Concern Present (07/25/2023) [employer] - Occupational Stress Questionnaire Feeling of Stress : Only a little Recent Concern: Stress - Stress Concern Present (07/25/2023) [employer] - Occupational Stress Questionnaire Feeling of Stress : Very much Social Connections: Moderately Isolated (07/25/2023) Social Connection and Isolation Panel [NHANES] Frequency of Communication with Friends and Family: Three times a week Frequency of Social Gatherings with Friends and Family: Three times a week Attends Orthodox Services: More than 4 times per year [...] Referring Physician: Rajni Steiner DO [address] [place] [address] documented in this encounterMer[facility] Health [facility]10-24-2024 Miscellaneous Notes* Telephone Encounter - Vicki Bailey CMA - 02/18/2024 9:30 AM EDT Called patient to remind them to bring their most current copy of their medication list with them to their appt. Patient verbalizes understanding. documented in this encounterMercy Health Urbana Hospital10-24-2024 Telephone encounter Note* Telephone Encounter - Vicki Bailey CMA - 02/18/2024 9:30 AM EDT Called patient to remind them to bring their most current copy of their medication list with them to their appt. Patient verbalizes understanding. [facility] [id number] History of Present illness Narrative* Eusebia Huertas, [...] nerve blocks in the past. Last saw [facility] pain clinic 09/2022, PT and aquatic therapy ordered , also RX for zanaflex. Prior treatment: pain clinic [facility] 09/2022, [facility] ER 08/27, MRI T-spine 09/10/23, calcitonin NS, norco, Lumbar MRI [facility] 11/27/22, LT ST Trigger point injx [...] tablet Take 80 mg by mouth Daily Irvwjav-Ugxkvesqqik-Dzndnpaxah (Breztri Aerosphere) 160-9-4.8 MCG/ACT aerosol Inhale calcitonin, [...] HISTORY: Past Medical History: Diagnosis Date Agoraphobia ([facility]) Angina at rest ([facility] Anxiety BiPAP (biphasic positive airway pressure) dependence Bipolar disorder ([facility]) Breast injury CAD (coronary artery disease) ([facility]) Cervical disc disorder Chronic kidney disease Congestive heart failure (CHF) ([facility]) COPD (chronic obstructive pulmonary disease) ([facility] Dementia ([facility]) Depression ([facility]) GERD (gastroesophageal reflux disease) Liver disease Lumbosacral disc disease Memory loss Myocardial infarction ([facility]) BONY (obstructive sleep apnea) Osteoarthritis Panic disorder ([facility]) Psoriasis ([facility]) PTSD (post-traumatic stress disorder) ([facility]) Shortness of breath Thoracic disc disease Visual [...] Huertas/guido Huertas D.O. documented in this encounterSaint Joseph Hospital [id number] Miscellaneous Notes* Telephone Encounter - Fior Scott CMA - 02/03/2024 3:42 PM EDT Requesting a referral to a new oil heat technician and said she would explain when we c all back. I called back and got no answer and mailbox is full. * Telephone Encounter - Monica Johnston CMA - 02/03/2024 3:42 PM EDT Pt called back stated she really needs a referral for a new oil heat technician * Telephone Encounter - Rajni Steiner DO - 02/03/2024 3:42 PM EDT Message noted. Please try again. We need to know which oil heat technician is on her insurance plan in order to make a referral. * Telephone Encounter - Cathleen Arreola - 02/03/2024 3:42 PM EDT LM on VM * Telephone Encounter - Sofya Coe CMA - 02/03/2024 3:42 PM EDT Patient's family called back and they need a referral to Dr. Guerrero [id number] [place], [place] * Telephone Encounter - Rajni Steiner DO - 02/03/2024 3:42 PM EDT Message noted. The referral was sent today. She can call and schedule at any time. * Telephone Encounter - Cathleen Arreola - 02/03/2024 3:42 PM EDT Referral sent documented in this encounterMercy Health [facility]rb[facility]10-09-2024 Telephone encounter Note* Telephone Encounter - Fior Scott CMA - 02/03/2024 3:42 PM EDT Requesting a referral to a new oil heat technician and said she would explain when we c all back. I called back and got no answer and mailbox is full. [facility]10-09-2024 Telephone encounter Note* Telephone Encounter - Monica Johnston CMA - 02/03/2024 3:42 PM EDT Pt called back stated she really needs a referral for a new oil heat technician [facility]10-09-2024 Telephone encounter Note* Telephone Encounter - Rajni Steiner DO - 02/03/2024 3:42 PM EDT Message noted. Please try again. We need to know which oil heat technician is on her insurance plan in order to make a referral. [facility]10-09-2024 Telephone encounter Note* Telephone Encounter - Cathleen Arreola - 02/03/2024 3:42 PM EDT LM on VM [facility]10-09-2024 Telephone encounter Note* Telephone Encounter - Sofya Coe CMA - 02/03/2024 3:42 PM EDT Patient's family called back and they need a referral to Dr. Guerrero [id number] [place], [place] [facility]10-09-2024 Telephone encounter Note* Telephone Encounter - Rajni Steiner DO - 02/03/2024 3:42 PM EDT Message noted. The referral was sent today. She can call and schedule at any time. [facility]10-09-2024 Telephone encounter Note* Telephone Encounter - Cathleen Arreola - 02/03/2024 3:42 PM EDT Referral sent [facility]10-07-2024 Miscellaneous Notes* Telephone Encounter - Vandana Resendiz - 02/01/2024 9:49 AM EDT Patient called and said that she needs office to send POC to [facility] for her oxygen therapy. Hide Sorter let patient know that SE is not the one who wrote the order for the Oxygen therapy and that it was her primary care provider. Patient stated [facility] stated that she had to have her [...] Umair Astrid - 02/01/2024 9:49 AM EDT Hide Sorter called patient in regards earlier call and left voicemail to return call to office for information about her oxygen therapy order. Office phone number provided. documented in this encounterMiami Valley HospitalMediGain [id number] Telephone encounter Note* Telephone Encounter - Vandana Magana Astrid - 02/01/2024 9:49 AM EDT Patient called and said that she needs office to send POC to [facility] for her oxygen therapy. Hide Sorter let patient know that SE is not the one who wrote the order for the Oxygen therapy and that it was her primary care provider. Patient stated [facility] stated that she had to have her oxygen therapy orders through pulmonary provider. Please Advise [facility] CenterAgent Partner10-07-2024 Telephone encounter Note* Telephone Encounter - Shari Garcia RN - 02/01/2024 9:[address] Steiner, PCP office ordered oxygen for nocturnal only. DME will not provide POC for patient with order for nocturnal oxygen only. Second, PCP office can sign oxygen therapy orders as they were the ones that ordered it. Any physician. Not just pulmonary. Please call patient and update. [facility] CenterAgent Partner10-07-2024 Telephone encounter Note* Telephone Encounter - Vandana Resendiz - 02/01/2024 9:49 AM EDT Hide Sorter called patient in regards earlier call and left voicemail to return call to office for information about her oxygen therapy order. Office phone number provided. [employer] [id number] History of Present illness Narrative* Eusebia Obregon [...] tablet Take 80 mg by mouth Daily Mmkvsva-Odmpjgcnfbn-Bpbslarbgk (Breztri Aerosphere) 160-9-4.8 MCG/ACT aerosol Inhale calcitonin, [...] (CMS/HCC) Psoriasis (CMS/HCC) PTSD (post-traumatic stress disorder) ([facility]) Shortness of breath Thoracic disc disease Visual [...] Huertas/guido Huertas D.O. documented in this encounterSaint Joseph Hospital [id number] Miscellaneous Notes* Telephone Encounter - Yadira Barrera RN - 01/20/2024 11:13 AM EDT Previous refill was set to no print New rx pended to pool for signature. Last ov 03/31/2023 Upcoming ov on 02/19/2024 Labs 12/17/2023 documented in this encounterMercy Health [facility]rbana Hospital09-25-2024 Telephone encounter Note* Telephone Encounter - Yadira Barrera RN - 01/20/2024 11:13 AM EDT Previous refill was set to no print New rx pended to pool for signature. Last ov 03/31/2023 Upcoming ov on 02/19/2024 Labs 12/17/2023 [facility]09-24-2024 Miscellaneous Notes* Telephone Encounter - Anabela Cueva CMA - 01/19/2024 9:09 AM EDT LM to call back and RS appt from today documented in this encounterMercy Health [facility]rbana Hospital09-24-2024 Telephone encounter Note* Telephone Encounter - Anabela Cueva CMA - 01/19/2024 9:09 AM EDT LM to call back and RS appt from today [facility]09-24-2024 Miscellaneous Notes* Telephone Encounter - Anabela Cueva CMA - 01/19/2024 8:40 AM EDT Message is left for patient to call back and reschedule her appt for today. documented in this [facility]09-24-2024 Telephone encounter Note* Telephone Encounter - Anabela Cueva CMA - 01/19/2024 8:40 AM EDT Message is left for patient to call back and reschedule her appt for today. [facility]09-23-2024 Miscellaneous Notes* Telephone Encounter - Vicki Bailey CMA - 01/18/2024 10:32 AM EDT Called patient to remind them to bring their most current copy of their medication list with them to their appt. Patient verbalizes understanding. documented in this encounterMercy Health [facility]rbana [facility]09-23-2024 Telephone encounter Note* Telephone Encounter - Vicki Bailey CMA - 01/18/2024 10:32 AM EDT Called patient to remind them to bring their most current copy of their medication list with them to their appt. Patient verbalizes understanding. [facility]09-23-2024 Miscellaneous Notes* Telephone Encounter - Caitie Cabello RN - 01/18/2024 9:06 AM EDT 03/31/23 ov with upcoming appt 01/19/24 01/04/24 BMP PC from pt needing refill documented in this encounterMercy Health [facility]rb[facility]09-23-2024 Telephone encounter Note* Telephone Encounter - Caitie Cabello RN - 01/18/2024 9:06 AM EDT 03/31/23 ov with upcoming appt 01/19/24 01/04/24 BMP PC from pt needing refill [facility]09-17-2024 History of Present illness Narrative* Eusebia Huertas, - 01/12/2024 10:45 AM EDT Images from the original note were not included. HISTORY OF PRESENT ILLNESS: Moent Recinos is an 63 y.o. @ female. [...] nerve blocks in the past. Last saw [facility] painclinic 09/2022, PT and aquatic therapy ordered , also RX for zanaflex. Prior treatment: pain clinic [facility] 09/2022, [facility] ER 08/27, MRI T-spine 09/10/23, calcitonin NS, norco, Lumbar MRI [facility] 11/27/22, LT ST Trigger point injx [...] tablet Take 80 mg by mouth Daily Jqlmwjz-Znphejzllpj-Vctlwzjrpw (Breztri Aerosphere) 160-9-4.8 MCG/ACT aerosol Inhale calcitonin, [...] HISTORY: Past Medical History: Diagnosis Date Agoraphobia ([facility]) Angina at rest ([facility]) Anxiety BiPAP (biphasic positive airway pressure) dependence Bipolar disorder ([facility]) Breast injury CAD (coronary artery disease) ([facility]) Chronic kidney disease Congestive heart failure (CHF) (CMS/HCC) COPD (chronic obstructive pulmonary disease) ([facility]) Dementia ([facility]) Depression ([facility]) GERD (gastroesophageal reflux disease) Liver disease Memory loss Myocardial infarction ([facility]) BONY (obstructive sleep apnea) Osteoarthritis Panic disorder ([facility]) Psoriasis ([facility]) PTSD (post-traumatic stress disorder) ([facility]) Shortness of breath Visual impairment ALLERGIES: Allergies [...] Huertas/guido Huertas D.O. documented in this encounterSaint Joseph Hospital [id number] Miscellaneous Notes* Telephone Encounter - Sofya Coe CMA - 01/07/2024 8:21 AM EDT From Rajni Steiner DO To [employer] Sent and Delivered 01/04/2024 9:12 PM Your kidney and potassium levels are stable from previous No changes today Left this message on her confidential voice mail documented in this encounterMiami Valley HospitalLocal Plant Source09-12-2024 Telephone encounter Note* Telephone Encounter - Sofya Coe CMA - 01/07/2024 8:21 AM EDT From Rajni Steiner DO To Jorje, Monet Dhillon Sent and Delivered 01/04/2024 9:12 PM Your kidney and potassium levels are stable from previous No changes today Left this message on her confidential voice mail [facility] [id number] History of Present illness Narrative* Rajni Steiner [...] Exam Vitals reviewed. Exam conducted with a pain coordinator present (Friend/POA). Constitutional: General: She is not [...] THE MORNING, Disp: 90 tablet, Rfl: 3 uonbfaxrxp-lwstufwx-gcdpgvedlg (BREZTRI AEROSPHERE) 160-9-4.8 mcg/actuation HFA aerosol inhaler, [...] Detected Not Detected^Not Detected Final Specific gravity [facility] 12/17/2023 1.015 1.003 - 1.035 Final Leukocyte esterase [facility] 12/17/2023 Negative Negative^Negative Final Nitrite [facility] 12/17/2023 Negative Negative^Negative Final Ph 12/17/2023 6.0 5.0 - 8.5 Final Protein [facility] 12/17/2023 Negative Negative^Negative mg/dL Final Urine glucose [facility] 12/17/2023 250 (A) Negative^Negative mg/dL Final Ketones [facility] 12/17/2023 Negative Negative^Negative mg/dL Final Urobilinogen [facility] 12/17/2023 0.2 <1.1 eu/dL Final Bilirubin [facility] 12/17/2023 Negative Negative^Negative Final Hemoglobin [facility] 12/17/2023 Negative Negative^Negative Final [...] on 10/20/2023 8:22 PM Rajni Steiner DO., [facility] Physicians Office: [phone] documented in this encounterMercy Health [facility] Hospital09-04-2024 Miscellaneous Notes* Telephone Encounter - Monica Johnston CMA - 12/30/2023 4:51 PM EDT Pts friend called stated pt needs an order for [facility] fax # [phone] * Telephone Encounter - Rajni Steiner DO - 12/30/2023 4:51 PM EDT Message noted. Order was written and faxed to [facility] today * Telephone Encounter - Monica Johnston CMA - 12/30/2023 4:51 PM EDT Ok thank you documented in this encounterMercy Health Urbana Hospital09-04-2024 Telephone encounter Note* Telephone Encounter - Monica Johnston CMA - 12/30/2023 4:51 PM EDT Pts friend called stated pt needs an order for o2 sent [facility] fax # [phone] [facility]09-04-2024 Telephone encounter Note* Telephone Encounter - Rajni Steiner DO - 12/30/2023 4:51 PM EDT Message noted. Order was written and faxed to [facility] today [facility] CenterCourtview Media [id number] Telephone encounter Note* Telephone Encounter - Monica Johnston CMA - 12/30/2023 4:51 PM EDT Ok thank you [facility] [employer] [id number] History of Present illness Narrative* Eusebia Huertas DO - 12/29/2023 10:45 AM EDTAssociated Order(s): Trigger Point Injection ([place] [address] [place] [address]): left gluteus tej Post-Procedure Diagnose(s): Trigger point of left side of body Images from the original note were not included. HISTORY OF PRESENT ILLNESS: Monet Recinos is an 63 y.o. @ female. Chief complaint Thoracic pain Thoracic: Intermittent back pain over the years with flare up thoracic pain 4 months ago (08/24/23) [place] at [facility] ER 08/27 with back pain, DX with compression FX T6 and PE-started on eliquis. Follow up with Dr Steiner, calcitonin and norco RX. MRI T-spine done at [facility] 09/10/23. She notes pain in thoracic spine is much improved. She is walking unassisted today. She uses walkeras needed. She is complaining of LT sided low back pain x 2-3 weeks. Taking TYL/IBU, no relief. Denies injury.Pain with sit to stand. Pain at HS. Denies radiation. Denies N/T. Injections and nerve blocks yearsago many years ago. Prior treatment: pain clinic years ago, [facility] ER /, MRI T-spine 09/10/23, calcitonin [...] tablet Take 80 mg by mouth Daily Vqruqhv-Lvmkliequxt-Mtifohifod (Breztri Aerosphere) 160-9-4.8 MCG/ACT aerosol Inhale calcitonin, [...] HISTORY: Past Medical History: Diagnosis Date Agoraphobia ([facility]) Angina at rest ([facility]) Anxiety BiPAP (biphasic positive airway pressure) dependence Bipolar disorder ([facility]) Breast injury CAD (coronary artery disease) ([facility]) Chronic kidney disease Congestive heart failure (CHF) ([facility]) COPD (chronic obstructive pulmonary disease) ([facility]) Dementia ([facility]) Depression ([facility]) GERD (gastroesophageal reflux disease) Liver disease Memory loss Myocardial infarction ([facility]) BONY (obstructive sleep apnea) Osteoarthritis Panic disorder ([facility]) Psoriasis ([facility]) PTSD (post-traumatic stress disorder) ([facility]) Shortness of breath Visual impairment ALLERGIES: Allergies [...] of body M79.10 Trigger Point Injection ([place] 12157 [place] [address]): left gluteus tej 2. Compression fracture of T6 vertebra with routine healing, subsequent encounter S22.050D XR spine 3. Compression fracture of T8 vertebra with routine healing, subsequent encounter S22.060D 4. Osteoporotic compression fracture of vertebra with routine healing, subsequent encounter M80.88XD Trigger Point Injection (CP[place] 18155 [place] [address]): left gluteus tej on 12/29/2023 2:58 PM [...] Huertas/guido Huertas D.O. documented in this encounterSaint Joseph Hospital [id number] Miscellaneous Notes* Telephone Encounter - Monica ELIAN [...] for [employer] , pts insurnace doesn't cover [employer]. So they have to send everything back [...] She gave me the phone number to [employer]: . Please call them to have them either fax us a O2 equipment order for me to complete, or get their fax number so I can send a new order for the oxygen equipment * Telephone Encounter - Tosin Reyes CMA - 12/24/2023 4:07 PM EDT There are 2 different number to contact for her. The CPAP is [phone] but they emailed me what they need for referral process. The oxygen is through [facility] through [facility] and left them a message to fax something for the referral. * Telephone Encounter - Rajni Steiner DO - 12/24/2023 4:07 PM EDT Message noted. The CPAP number does not concern me, that is for the sleep clinic to handle However, I still have not received anything from [facility] documented in this encounterMercy Health [facility]rbana Hospital08-29-2024 Telephone encounter Note* Telephone Encounter - [...] for [employer] , pts insurnace doesn't cover [employer]. So they have to send everything back [facility] [employer] [id number] Telephone encounter Note* Telephone Encounter - Rajni [...] She gave me the phone number to [facility]: . Please call them to have them either fax us a O2 equipment order for me to complete, or get their fax number so I can send a new order for the oxygen equipment [facility]08-29-2024 Telephone encounter Note* Telephone Encounter - Tosin Reyes CMA - 12/24/2023 4:07 PM EDT There are 2 different number to contact for her. The CPAP is [phone] but they emailed me what they need for referral process. The oxygen is through [facility] through [facility] and left them a message to fax something for the referral. [facility]08-29-2024 Telephone encounter Note* Telephone Encounter - Rajni Steiner DO - 12/24/2023 4:07 PM EDT Message noted. The CPAP number does not concern me, that is for the sleep clinic to handle However, I still have not received anything from [facility]08-22-2024 Miscellaneous Notes* Telephone Encounter - Johnna Cortes - 12/17/2023 10:37 AM EDT Received call from Tung at sleep lab that [facility] called there stating pt does not qualify for thecontinuous Oxygen to be bled in with PAP. Will set up with PAP only. Per Dr Meadows, pt's February appt needs to be moved up for new face to face and repeat home O2 eval. Routed to Maryellen to schedule.Spoke to Concepcion at [facility] to inform will be retesting pt in order to try to qualify her for the oxygen. * Telephone Encounter - GLORIA Scott - 12/17/2023 10:37 AM EDT Kymberly called patient and moved patient's from February to 01/14/2024 at 3pm with SE in the [place] office. * Telephone Encounter - Johnna Cortes - 12/17/2023 10:37 AM EDT Thanks documented in this encounterMercy Health [facility]08-22-2024 Miscellaneous Notes* Telephone Encounter - Tosin Reyes CMA - 12/17/2023 10:37 AM EDT Patient called and O2 dropped to 70's overnight and now she can barely keep it up to 90. I directedher to the ER. * Telephone Encounter - Rajni Steiner DO - 12/17/2023 10:37 AM EDT Message noted. I agree documented in this encounterMercy Health U[facility]08-22-2024 Telephone encounter Note* Telephone Encounter - Johnna Cortes - 12/17/2023 10:37 AM EDT Received call from Tung at sleep lab that [facility] called there stating pt does not qualify for thecontinuous Oxygen to be bled in with PAP. Will set up with PAP only. Per Dr Meadows, pt's November appt needs to be moved up for new face to face and repeat home O2 eval. Routed to Maryellen to schedule.Spoke to Concepcion at [facility] to inform will be retesting pt in order to try to qualify her for the oxygen. [facility]08-22-2024 Telephone encounter Note* Telephone Encounter - GLORIA Scott - 12/17/2023 10:37 AM EDT Kymberly called patient and moved patient's from February to 01/14/2024 at 3pm with SE in the [place] office. [facility]08-22-2024 Telephone encounter Note* Telephone Encounter - Johnna Cortes - 12/17/2023 10:37 AM EDT Thanks [facility]08-22-2024 Telephone encounter Note* Telephone Encounter - Tosin Reyes CMA - 12/17/2023 10:37 AM EDT Patient called and O2 dropped to 70's overnight and now she can barely keep it up to 90. I directedher to the ER. [facility]08-22-2024 Telephone encounter Note* Telephone Encounter - Rajni Steiner DO - 12/17/2023 10:37 AM EDT Message noted. I agree [facility]08-20-2024 Miscellaneous Notes* Telephone Encounter - Johnna Cortes - 12/15/2023 1:43 PM EDT Message received from Vicki at [facility] [place] for PAP/ O2. Pt must use [employer] (fax number is location specific). Spoke to Ciarra at [facility] and for pt zip, she must use [place] location. Faxed all info to [phone] for setup with BiPAP and O2. Pt notified via phone/ my chart message also sent. Phnumber of [phone] also given to pt. documented in this encounterMercy Health [facility]08-20-2024 Telephone encounter Note* Telephone Encounter - Johnna Cortes - 12/15/2023 1:43 PM EDT Message received from Vicki at [facility] that [place]ON for PAP/ O2. Pt must use [employer] (fax number is location specific). Spoke to Ciarra at [facility] and for pt zip, she must use [place] location. Faxed all info to [phone] for setup with BiPAP and O2. Pt notified via phone/ my chart message also sent. Phnumber of [phone] also given to pt. [facility]08-15-2024 Miscellaneous Notes* Telephone Encounter - Kaia Jovel MD - 12/10/2023 10:23 AM EDT Patient of Dr. Meadows, BiPAP 14/9 cm of water with 3L/min supplement oxygen recommended, order formcomplete in natus, please fax Results note sent to patient Titration study on 12/08/2023 (Cbloas=339.0 lbs; BMI=35.3 kg/m2) DIAGNOSIS: Obstructive Sleep Apnea [...] on a wedge cushion. documented in this encounterMercy Health [facility]08-15-2024 Telephone encounter Note* Telephone Encounter - Kaia Jovel MD - 12/10/2023 10:23 AM EDT Patient of Dr. Meadows, BiPAP 14/9 cm of water with 3L/min supplement oxygen recommended, order formcomplete in [facility], please fax Results note sent to patient Titration study on 12/08/2023 (Nmfhji=430.0 lbs; BMI=35.3 kg/m2) DIAGNOSIS: Obstructive Sleep Apnea [...] elevated such as on a wedge cushion. [employer] Work Phone: 1(172) 176-684107-25-2024 Miscellaneous Notes* Telephone Encounter - Tosin Reyes [...] PM EDT Patient notified documented in this encounterMercy Health [facility]07-25-2024 Telephone encounter Note* Telephone Encounter - Tosin Reyes CMA - 11/19/2023 4:56 PM EDT Patient has been getting shoulder injections thru Dr. Castro and now they are asking for a referral toortho. [facility]07-25-2024 Telephone encounter Note* Telephone Encounter - Rajni Steiner DO - 11/19/2023 4:56 PM EDT Message noted. Who is looking for the referral? If she is already getting injections, why does she need a new referral? [facility]07-25-2024 Telephone encounter Note* Telephone Encounter - Tosin Reyes CMA - 11/19/2023 4:56 PM EDT She has switched insurance and so they need a referral to Dr. Castro. [facility]07-25-2024 Telephone encounter Note* Telephone Encounter - Rajni Steiner DO - 11/19/2023 4:56 PM EDT Message noted. I do not know what or why she is getting the injections for. I have not received any reports or feedback from Dr. Castro, therefore I am unable to make a referral. [facility] [id number] Telephone encounter Note* Telephone Encounter - Tosin Reyes CMA - 11/19/2023 4:56 PM EDT [facility] notified [facility] [id number] History of Present illness Narrative* Rajni Steiner DO - 11/02/2023 3:30 PM EDT IM PROGRESS NOTE Patient - Monet Recinos Age - 63 y.o[facility] 1960 [id number] ASSESSMENT & PLAN 1. Venous insufficiency of both lower extremities -secondary to chronic diastolic heart failure, in conjunction with extended dependent positioning of the legs -is on maximum dose diuretics with torsemide 80-120 mg daily -at this time I advised the patient to elevate her legs 30-40 minutes every morning and afternoon, as well as at nighttime -will order zippered compression stockings through [employer] to allow her to be more independent [...] acute cor pulmonale, unspecified pulmonary embolism type ([facility]) -has completed 2/3 months of anticoagulation [...] 3 times a day. No longer taking [place]. Did see Orthopedic surgery in follow-up, and [...] Exam Vitals reviewed. Exam conducted with a pain coordinator present (Friend/POA). Constitutional: General: She is not [...] THE MORNING, Disp: 90 tablet, Rfl: 3 fnjrepddle-vdjldwyh-lkcmunzjpc (BREZTRI AEROSPHERE) 160-9-4.8 mcg/actuation HFA aerosol inhaler, [...] on 09/19/2023 12:42 AM Rajni Steiner DO., [facility] Office: [phone] documented in this encounterMercy Health [facility]07-05-2024 Miscellaneous Notes* Telephone Encounter - Nuha Nichole RN - 10/30/2023 7:30 AM EDT OV 08/03/23 BMP 09/30/23 documented in this encounterMercy Health [facility]07-05-2024 Telephone encounter Note* Telephone Encounter - Nuha Nichole RN - 10/30/2023 7:30 AM EDT OV 08/03/23 BMP 09/30/23 [facility]06-12-2024 Miscellaneous Notes* Telephone Encounter - Daisha Marquez CMA - 10/07/2023 3:08 PM EDT ----- Message from Victor Hugo Vincent DO sent at 10/06/2023 11:58 AM EDT ----- Call and let her know that her ultrasound and mammogram were normal. If she still has problems she should come back to see me. ThanksDr. Cornell documented in this [facility]06-12-2024 Telephone encounter Note* Telephone Encounter - Daisha Marquez CMA - 10/07/2023 3:08 PM EDT ----- Message from Victor Hugo Vincent DO sent at 10/06/2023 11:58 AM EDT ----- Call and let her know that her ultrasound and mammogram were normal. If she still has problems she should come back to see me. Thanks, Dr. Cornell [facility]06-07-2024 Miscellaneous Notes* Telephone Encounter - Nuha Nichole RN - 10/02/2023 12:38 AM EDT OV 08/03/23 BMP 09/30/23 documented in this encounterMercy Health [facility]06-07-2024 Telephone encounter Note* Telephone Encounter - Nuha Nichole RN - 10/02/2023 12:38 AM EDT OV 08/03/23 BMP 09/30/23 [facility]06-05-2024 History of Present illness Narrative* Rajni Steiner, - 09/30/2023 1:30 PM EDT IM PROGRESS NOTE Patient - Monet Recinos Age - 63 y.o. [facility] 1960 [facility] [id number] ASSESSMENT & PLAN 1. Closed wedge compression fracture of T6 vertebra with routine healing -reviewed orthopedic consult note with the patient, along with recommendations and goals of treatment -patient advised she cannot use ibuprofen, or any NSAID at the current time for her pain because ofher anticoagulation. -therefore, we will continue the [place] 5-325 b.i.d. pain relief longer than anticipated [...] Chronic respiratory failure with hypoxia and hypercapnia ([facility]) -continue oxygen support nocturnally and during the day as needed -continue Breztri 2 daily - CBC auto differential; Future 5. Chronic heart failure with preserved ejection fraction ([facility]) -current GDMT includes Jardiance 10 mg [...] taking salmon calcitonin nasal spray, cyclobenzaprine, and [place] 5-325 b.i.d. the pain is improved from initial, but still present on a dailybasis associated with leaning against her back, or prolonged walking or standing. She was seen by Orthopedic surgery regarding cough, but continued conservative treatment was recommended especially in light her current anticoagulation status. She is taking 4272-2536 mg ibuprofen daily try and help her [...] Exam Vitals reviewed. Exam conducted with a pain coordinator present (Friend/POA). Constitutional: General: She is not [...] THE MORNING, Disp: 90 tablet, Rfl: 3 szghmuyuoj-dcgettqa-lnhcfjexnc (BREZTRI AEROSPHERE) 160-9-4.8 mcg/actuation HFA aerosol inhaler, [...] on 07/24/2023 10:05 PM Rajni Steiner DO., [facility] Phys[facility] Office: [phone] documented in this encounterMercy Health [facility]05-30-2024 History of Present illness Narrative* Kacey Lamb Kat, ELECTROLESS PLATER-GAMBRELER HELPER - 09/24/2023 11:00 AM EDT Subjective Patient [...] nursing note reviewed. Exam conducted with a pain coordinator present (interior design consultant). Constitutional: General: She is in acute [...] YONY Vazquez 09/24/23 1650 documented in this encounterMercy Health [facility]05-15-2024 History of Present illness Narrative* Rajni [...] discharge medication. Patient had been admitted to [facility] because of chest pain. Was sharp [...] Exam Vitals reviewed. Exam conducted with a pain coordinator present (Friend/POA). Constitutional: General: She is not [...] treatment -no changes today documented in this encounterMercy Health [facility]04-22-2024 Miscellaneous Notes* Telephone Encounter - Monica [...] only one here Thursday documented in this encounterMercy Health [facility]04-22-2024 Telephone encounter Note* Telephone Encounter - Monica Johnston CMA - 08/17/2023 10:20 AM EDT Pt called stated that [facility] is waiting for a corrected RX for her portable O2 , stated it needs it sent today she is leaving town in the morning [facility]04-22-2024 Telephone encounter Note* Telephone Encounter - Rajni Steiner DO - 08/17/2023 10:20 AM EDT Message noted. It was corrected last week. Was it sent? [facility]04-22-2024 Telephone encounter Note* Telephone Encounter - Cathleen Arreola - 08/17/2023 10:20 AM EDT Will get it out today, was the only one here Thursday [facility]04-22-2024 Miscellaneous Notes* Telephone Encounter - Leona Gaffney - 08/17/2023 9:06 AM EDT 08/13 Order received Scheduled PAP @ [facility] on 12/06 My chart confirmation [facility] Medicare / Medicaid Pap Order and 06/25/23 Stephanie Wilson Notes Run with TCO2 monitoring, previously tried/failed CPAP. Low threshold to switch to BiPAP if patient intolerant documented in this encounterMercy Health [facility]04-22-2024 Telephone encounter Note* Telephone Encounter - Leona Gaffney - 08/17/2023 9:06 AM EDT 08/13 Order received Scheduled PAP @ [facility] on 12/06 My chart confirmation [facility] Medicare / Medicaid Pap Order and 06/25/23 Stephanie Meadows Epic Notes Run with TCO2 monitoring, previously tried/failed CPAP. Low threshold to switch to BiPAP if patient intolerant [employer]04-18-2024 Miscellaneous Notes* Telephone Encounter - Kaia Jovel [...] (AHI (3%)=35.8 events/hour; AHI (4%)=13.1 events/hour; Dani SpO2=83.0%;Ssbugs=818.0 lbs; BMI=38.2 kg/m2) DIAGNOSIS: Obstructive Sleep Apnea [...] - PLEASE FACILITATE THANKS documented in this encounterCentral Vermont Medical CenterUtterz04-18-2024 Telephone encounter Note* Telephone Encounter - Kaia [...] (AHI (3%)=35.8 events/hour; AHI (4%)=13.1 events/hour; Dani SpO2=83.0%;Kxinpi=878.0 lbs; BMI=38.2 kg/m2) DIAGNOSIS: Obstructive Sleep Apnea [...] two hours. A CPAP titration is recommended. [employer] Work Phone: 1(313) 154-308504-18-2024 Telephone encounter Note* Telephone Encounter - Shari Garcia RN - 08/13/2023 2:39 PM EDT SERGIO - PLEASE FACILITATE THANKS [facility]04-18-2024 Miscellaneous Notes* Telephone Encounter - Sofya Coe CMA - 08/13/2023 10:36 AM EDT Anabela from [facility] called because the order for her O2 has to say POC setting at 2L/Min viaNasal Cannula or her insurance will not cover it. They want us to fax the new order to [phone] * Telephone Encounter - Rajni Steiner DO - 08/13/2023 10:36 AM EDT Message noted. A new order for POC setting at 2L/Min via Nasal Cannula was placed in her chart today. Please fax this to [facility] so she can get her portable O2 concentrator * Telephone Encounter - Cathleen Arreola - 08/13/2023 10:36 AM EDT Got it documented in this encounterMercy Health [facility]04-18-2024 Telephone encounter Note* Telephone Encounter - Sofya Coe CMA - 08/13/2023 10:36 AM EDT Anabela from [facility] called because the order for her O2 has to say POC setting at 2L/Min viaNasal Cannula or her insurance will not cover it. They want us to fax the new order to [phone] [facility]04-18-2024 Telephone encounter Note* Telephone Encounter - Rajni Steiner DO - 08/13/2023 10:36 AM EDT Message noted. A new order for POC setting at 2L/Min via Nasal Cannula was placed in her chart today. Please fax this to [facility] so she can get her portable O2 concentrator [employer]04-18-2024 Telephone encounter Note* Telephone Encounter - Cathleen Arreola - 08/13/2023 10:36 AM EDT Got it [employer] [id number] History of Present illness Narrative* Rajni Steiner [...] Exam Vitals reviewed. Exam conducted with a pain coordinator present (Friend and POA). Constitutional: General: She [...] partial remission, most recent episode unspecified type ([facility]) - Stable - At next visit, consider weaning off propanolol and doxepin documented in this encounterMercy Health [facility]04-11-2024 Miscellaneous Notes* Telephone Encounter - GLORIA Scott - 08/06/2023 4:43 PM EDT Received call from patient in regard to her POC testing order, medical writer informed patient that the order was sent to [facility] and that she should contact them if she does not hear from them by next week. Patient verbalized understanding. Patient also asked if she has a current prescription for Breztri, informed patient that a prescription for Breztri was sent to [facility] in [place] on 06/25/2023 with 10 refills, patient verbalized understanding. documented in this encounterMercy Health [facility]04-11-2024 Telephone encounter Note* Telephone Encounter - GLORIA Scott - 08/06/2023 4:43 PM EDT Received call from patient in regard to her POC testing order, medical writer informed patient that the order was sent to [facility] and that she should contact them if she does not hear from them by next week. Patient verbalized understanding. Patient also asked if she has a current prescription for Breztri, informed patient that a prescription for Breztri was sent to [facility] in [place] on 06/25/2023 with 10 refills, patient verbalized understanding. [facility]04-05-2024 Miscellaneous Notes* Telephone Encounter - Vandana Resendiz - 07/31/2023 11:51 AM EDT Patient called asking about getting a rx for portable oxygen for a trip on 08/17 she is taking. Advised there is a note in for the doctor and that she would get return call once the doctor has responded. documented in this encounterMercy Health [facility]04-05-2024 Telephone encounter Note* Telephone Encounter - Vandana Resendiz - 07/31/2023 11:51 AM EDT Patient called asking about getting a rx for portable oxygen for a trip on 08/17 she is taking. Advised there is a note in for the doctor and that she would get return call once the doctor has responded. [facility]04-01-2024 Nurse Note* Gale Chiang RN - 07/27/2023 2:35 PM EDT Discharge instructions and medications reviewed with pt who verbalized understanding. Oxygen delivered by DME provider who instructed pt and her friend/roommate on use. PIV removed. Pt escorted to [facility] in w/c where her friend was waiting to provide transportation to home. [facility]04-01-2024 Nurse Note* Gale Chiang RN - 07/27/2023 2:35 PM EDT Discharge instructions and medications reviewed with pt who verbalized understanding. Oxygen delivered by DME provider who instructed pt and her friend/roommate on use. PIV removed. Pt escorted to lobby in w/c where her friend was waiting to provide transportation to home. documented in this encounterMercy Health [facility]04-01-2024 Progress note* Discharge Planning Note - [...] Dr Steiner asked to correct order on [employer] chat. Vicki update on careport. Corrected oxygen order and face to face note sent via careport to Vicki at [facility] Await confirmation. DEENA Carty, 07/27/2023, [...] On Applied O2 With Exercise/Ambulation 95 % [facility]04-01-2024 Miscellaneous Notes* Discharge Planning Note - [...] Dr Steiner asked to correct order on [employer] chat. Vicki update on careport. Corrected oxygen order and face to face note sent via careport to Vicki at [facility] Await confirmation. DEENA Carty, 07/27/2023, [...] Referral sent to [facility] - [employer] formerly [facility], andPAULETTE Finch ([place]- P# ; F# ) ([place]- P# ; F# ) ([place]- P# ; F# ) ([place]- P# ; F# ) ([place]- P# ; F# ) ([place]- P# ; F# ) ([place]- P# [phone] ; F# [phone]) * Discharge Planning Note - DEENA Raines [...] with Self Care County Information [facility] [place] Patient Information Primary Caregiver Self Support System Immediate family;Extended family (roommate/friend/aid Norma, 3 children out of state) Stressors Type of stressor (does not endorse) Income Information Income Information Disability Referral To Community Resources Denies needs Discharge Planning Living Arrangements (with roommate Norma) Support Systems shared services manager/social security assessor;Friends;Children;Therapist (friend Norma, 3 children out of state, psychiatrist, PASSPORT case briefer) Assistance Needed walker, meals on wheel, PASSPORT Services Type of Residence Private residence Private Residence [address] Residence Accessibility Steps into home Number of Steps 5 Home Care Services Yes Type of Home Care Services Home health aide;Meals on Wheels;Other (Comment) (PASSPORT Services: Norma is paid aid for 2 hrs per day) Community Agencies Currently Utilized Manager Ent;Mental health centers (PASSPORT [employer] Developer: Elise; Psychiatrist Dr. Collier, [facility]) Patient expects to be discharged to: home [...] utilizing psychiatric services with [facility]. Collier in [facility] for medical management; pt does not endorse any mental health concerns, negative [place] screen. Pt friend/roommate Norma provides transportation. Pt [...] O2. Pt aware of home O2 evaluation; medical writer reviewed areaE's, pt preference is [employer]. Educated on [facility], pt does not endorse current [...] clean and dry. Skin protectant as needed. [place] pads in place. * Plan of Care - Mary Cee RN - 07/27/2023 1:31 AM EDT Problem: Pain Goal: Patient goal is pain score less than 4, able to rest, and participant in treatment plan as appropriate Description: INTERVENTIONS: 1. Encourage patient or legal patient care representative to report early pain and ask [...] per policy 9. Teach patient or legal patient care representative interventions for comforting Outcome: Progressing Note: [...] that there are some limitations compared to urby-[id number]-[id number] evaluations. We elected to proceed. PULMONARY CONSULT Patient - Monet Dhillon Cool Age - 63 y.[facility] 1960 [id number] Date of Admission - 07/25/2023 4:29 PM [...] longer uses a BIPAP 01/28/23 Bipolar disorder ([facility] Breast injury CHF (congestive heart failure) ([facility]) Chipped tooth Chronic kidney disease COPD (chronic obstructive pulmonary disease) ([facility]) Coronary artery disease Dementia ([facility]) Depression Diarrhea frequent bouts /involuntary Dizziness GERD (gastroesophageal reflux disease) Headache History of coronary artery bypass graft 08/14/2020 Liver disease Low back pain Memory loss Myocardial infarction ([facility]) Apr 2009, swith stent placement Obesity BONY treated with BiPAP 07/31/2022 Osteoarthritis Panic disorder Psoriasis PTSD (post-traumatic stress disorder) Rotator cuff tear L Shortness of breath Sleep apnea Visual impairment glasses Past Surgical History: Procedure Laterality Date BREAST BIOPSY BREAST CYST EXCISION Cardiac catheterization N/A 01/09/2020 Performed by Yefri Khan MD at [facility] Cardiac catheterization-LV Cors N/A 08/06/2020 Performed by Hazel Painting MD at [facility] SECTION CHOLECYSTECTOMY COLONOSCOPY N/A 04/03/2017 Performed by Jose Beaver MD at [facility] Coronary angiogram and left ventricular gram/pressure N/A 01/09/2020 Performed by Yefri Khan MD at [facility] CORONARY ANGIOPLASTY WITH STENT PLACEMENT CORONARY ARTERY BYPASS GRAFT X4/ THOMPSON/ SVG X3 / RIGHT UPPER LEG OPEN VEIN HARVEST/ LEFT UPPER LEG OPEN VEING HARVEST /GINETTE N/A 08/13/2020 Performed by Leroy Meng MD at [facility] Drug eluting stent left anterior descending N/A 01/09/2020 Performed by Yefri Khan MD at [facility] EXCISION SEROMA LOWER EXTREMITY Left 10/07/2022 Performed by Victor Hugo Vincent DO at [facility] Intravascular ultrasound coronary N/A 08/06/2020 Performed by Hazel Painting MD at [facility] Intravascular ultrasound coronary N/A 01/09/2020 Performed by Yefri Khan MD at [facility] NOTCHARGED/Thrombolysis arterial initial treatment N/A 01/09/2020 Performed by Yefri Khan MD at [facility] TONSILLECTOMY Review of Systems [...] BY MOUTH IN THE MORNING 90 tablet nyvzcajnns-kxphfwhz-wanixxhhsx (BREZTRI AEROSPHERE) 160-9-4.8 mcg/actuation HFA aerosol inhaler [...] min Stress: No Stress Concern Present (07/25/2023) [place] [employer] - Occupational Stress Questionnaire Feeling of Stress : Only a little Recent Concern: Stress - Stress Concern Present (07/25/2023) [place] [employer] - Occupational Stress Questionnaire Feeling of Stress : Very much Social Connections: Moderately Isolated (07/25/2023) Social Connection and Isolation Panel [NHANES] Frequency of Communication with Friends and Family: Three times a week Frequency of Social Gatherings with Friends and Family: Three times a week Attends Orthodox Services: More than 4 times per year [...] Component Value Units Date/Time Blood culture #1 [[id number]] Collected: 07/25/23 175 Specimen: Blood Updated: 07/26/23 1007 Culture NO GROWTH <24 HRS SARS/FLU A+B/RSV by NAAT/Molecular (M4RT Collection Tube) [[id number]] Collected: 07/25/23 175 Specimen: Nasopharynx Updated: 07/25/23 1925 FLU A PCR Negative FLU B PCR Negative RSV by PCR Negative SARS CoV 2 BY PCR Not Detected Blood culture #2 [[id number]] Collected: 07/25/23 1745 Specimen: Blood Updated: 07/26/23 1007 Culture NO GROWTH <24 HRS SARS/FLU A+B/RSV by NAAT/Molecular (M4RT Collection Tube) [[id number]] Collected: 07/24/232149 Specimen: Nasopharynx Updated: 07/24/232243 FLU [...] Component Value Units Date/Time Blood culture #1 [[id number]] Collected: 07/25/231756 Specimen: Blood Updated: 07/26/23 1007 Culture NO GROWTH <24 HRS SARS/FLU A+B/RSV by NAAT/Molecular (M4RT Collection Tube) [[id number]] Collected: 07/25/231749 Specimen: Nasopharynx Updated: 07/25/23 192 FLU A PCR Negative FLU B PCR Negative RSV by PCR Negative SARS CoV 2 BY PCR Not Detected Blood culture #2 [[id number]] Collected: 07/25/23 174 Specimen: Blood Updated: 07/26/23 1007 Culture NO GROWTH <24 HRS SARS/FLU A+B/RSV by NAAT/Molecular (M4RT Collection Tube) [[id number]] Collected: 07/24/232149 Specimen: Nasopharynx Updated: 07/24/232243 FLU [...] regurgitation or stenosis. Mitral Valve: There is pguty-oy-zemg regurgitation. There is no evidence of mitral valve stenosis. Tricuspid Valve: There is moderate regurgitation. RVSP estimated at 40-45 mmHg. Echo complete W/ contrast Result Date: 11/19/2021 Left Ventricle: Systolic function is normal with an ejection fraction of 55-60%. Aortic Valve: There is no regurgitation or stenosis. Mitral Valve: There is netoz-iy-iowk regurgitation. There is no evidence of mitral [...] Description: INTERVENTIONS: 1. Encourage patient or legal patient care representative to report early pain and ask [...] per policy 9. Teach patient or legal patient care representative interventions for comforting Outcome: Progressing Note: Evaluation of progress towards goal: Continue to assess for pain and address accordingly Problem: Moderate - High Risk Fall Score Description: Shearer Fall Score of =/> 25 or indicated by [facility] Assessment Goal: Patient should be free from fall Description: Interventions: 1. Bruno to environment 2. Hourly rounds addressing the [...] non-skid footwear 11. Teach patient and patient patient care representative to maintain environment for safety and [...] (cane, walker) within reach 19. Request patient patient care representative bring adaptive equipment/mobility aids from home or obtain and provide as needed 20. Consult pharmacy regarding effects of med's affecting mobility, cognition, and alternatives 21. Obtain physician order for PT if risk factors associated with mobility are present 22. Obtain physician order for OT as appropriate 23. Utilize diversional activities 24. Educate patient and patient patient care representative how to maintain a safe environment during visitationtimes (notify nurse prior to leaving bedside) 25. Consider appropriateness of medical or non-director of medical services 26. Set up voiding schedule as appropriate [...] Description: INTERVENTIONS: 1. Encourage patient or legal patient care representative to report early pain and ask [...] per policy 9. Teach patient or legal patient care representative interventions for comforting Outcome: Progressing Note: [...] at the bedside 7. Instruct patient/ patient patient care representative about use of safety devices 8. Include patient/ patient patient care representative in decisions related to safety Outcome: Progressing Note: Evaluation of progress towards goal: Remains free from injury. Safety precautions maintained. Problem: Knowledge Deficit Goal: Patient/patient patient care representative demonstrates understanding of disease process, treatment [...] be free from fall Description: Interventions: 1. Bruno to environment 2. Hourly rounds addressing the [...] non-skid footwear 11. Teach patient and patient patient care representative to maintain environment for safety and [...] (cane, walker) within reach 19. Request patient patient care representative bring adaptive equipment/mobility aids from home or obtain and provide as needed 20. Consult pharmacy regarding effects of med's affecting mobility, cognition, and alternatives 21. Obtain physician order for PT if risk factors associated with mobility are present 22. Obtain physician order for OT as appropriate 23. Utilize diversional activities 24. Educate patient and patient patient care representative how to maintain a safe environment during visitationtimes (notify nurse prior to leaving bedside) 25. Consider appropriateness of medical or non-director of medical services 26. Set up voiding schedule as appropriate [...] denies shortness of breath. [facility] Progress note* Discharge Planning Note - Concepcion Vargas - 07/27/2023 11:12 AM EDT DISCHARGE PLANNING NOTE Referral sent to [facility] Judys Book formerly [employer], andPAULETTE Finch ([place]- P# ; F# ) ([place]- P# ; F# ) ([place]- P# ; F# ) ([place]- P# ; F# ) ([place]- P# ; F# ) ([place]- P# ; F# ) ([place]- P# [phone] ; F# [phone]) [facility] Progress note* Discharge Planning Note - DEENA Raines - 07/27/2023 11:06 AM EDT DISCHARGE PLANNING NOTE Tasked Transition Center to send referral to [facility] [employer] for home O2 with portability for DC today; requested delivery time of equipment. [employer] [id number] Hospital course Narrative* Rajni Cardoso DO Obdulia - 07/27/2023 10:45 AM EDT Images from the original note were not included. HOSPITAL DISCHARGE NOTE Patient Name: Monet Recinos : 1960 PCP: Rajni Steiner Jr, DO Date of admission: 07/25/2023 Date of discharge: 07/27/2023 Discharge diagnoses: Principal Problem: Chronic respiratory failure with hypoxia and hypercapnia (CMS-HCC) Active Problems: Atherosclerotic heart disease of knik coronary artery with other forms of angina [...] 160-9-4.8 mcg/actuation HFA aerosol inhaler Generic drug: sizhiokffy-dnundwul-nrvajdluzc Inhale 2 puffs in the morning and [...] on discharging this patient. documented in this [facility] History of Present illness Narrative* Rebecca [...] depression, and bipolar disorder. documented in this encounterMer[facility]04-01-2024 Progress note* Discharge Planning Note - DEENA Raines - 07/27/2023 10:21 AM EDT Images from the original note were not included. DISCHARGE PLANNING NOTE 07/27/23 1005 Discharge Disposition Discharge Disposition Home with Self Care County Information County of Residence [place] Patient Information Primary Caregiver Self Support System Immediate family;Extended family (roommate/friend/aid Norma, 3 children out of state) Stressors Type of stressor (does not endorse) Income Information Income Information Disability Referral To Community Resources Denies needs Discharge Planning Living Arrangements (with roommate Norma) Support Systems shared services manager/social security assessor;Friends;Children;Therapist (friend Norma, 3 children out of state, psychiatrist, PASSPORT case briefer) Assistance Needed walker, meals on wheel, PASSPORT Services Type of Residence Private residence Private Residence 1 [facility] Accessibility Steps into home Number of Steps 5 Home Care Services Yes Type of Home Care Services Home health aide;Meals on Wheels;Other (Comment) (PASSPORT Services: Norma is paid aid for 2 hrs per day) Community Agencies Currently Utilized Manager Ent;Mental health centers (PASSPORT [employer] Developer: Elise; Psychiatrist Dr. Collier [facility]) Patient expects to be discharged to: home [...] utilizing psychiatric services with Dr. Collier in [facility] for medical management; pt does not endorse any mental health concerns, negative [place] screen. Pt friend/roommate Norma provides transportation. Pt is utilizing [employer], meals on wheels & roommate Norma is pt paid care provider for 2 hours per day. Pt relayed she speaks with her daughters who live out of state most days by phone & her son as well; family provides natural supports. Patient's preferred pharmacy is [facility]. PCP verified as Dr. Rajni Steiner. Update from attending, monitoring for home O2. Pt aware of home O2 evaluation; medical writer reviewed areaDME's, pt preference is [employer]. Educated on [facility], pt does not endorse current needs. Opportunity provided to ask questions, pt does not endorse any at this time. Plan to prevent readmission is for pt to follow up with PCP, pt prefers to make own appointment, follow DC instructions including medication compliance and to reach out to health care team as needed. Care Navigation following for safe care transition. [facility]04-01-[facility] Plan of care note* Plan of [...] clean and dry. Skin protectant as needed. [place] pads in place. [employer] [id number] Plan of care note* Plan of Care - Mary Cee RN - 07/27/2023 1:31 AM EDT Problem: Pain Goal: Patient goal is pain score less than 4, able to rest, and participant in treatment plan as appropriate Description: INTERVENTIONS: 1. Encourage patient or legal patient care representative to report early pain and ask [...] per policy 9. Teach patient or legal patient care representative interventions for comforting Outcome: Progressing Note: Evaluation of progress towards goal: patient verbalized no pain [facility]03-31-[facility]24 Plan of care note* Plan of [...] Nebulizer Duration (Minutes) 10 Position High Abebe's [facility]03-31-2024 Consult note* Telehealth Consult - Nathaniel [...] that there are some limitations compared to ptmr-zf-hajy evaluations. We elected to proceed. PULMONARY CONSULT [...] longer uses a BIPAP 01/28/23 Bipolar disorder ([facility]) Breast injury CHF (congestive heart failure) ([facility]) Chipped tooth Chronic kidney disease COPD (chronic obstructive pulmonary disease) ([facility]) Coronary artery disease Dementia ([facility]) Depression Diarrhea frequent bouts /involuntary Dizziness GERD [...] 01/09/2020 Performed by Yefri Khan MD at [facility] Cardiac catheterization-LV Cors N/A 08/06/2020 Performed by Hazel Painting MD at [facility] SECTION CHOLECYSTECTOMY COLONOSCOPY N/A 04/03/2017 Performed by Jose Beaver MD at [facility] Coronary angiogram and left ventricular gram/pressure N/A 01/09/2020 Performed by Yefri Khan MD at [facility] CORONARY ANGIOPLASTY WITH STENT PLACEMENT CORONARY ARTERY BYPASS GRAFT X4/ THOMPSON/ SVG X3 / RIGHT UPPER LEG OPEN VEIN HARVEST/ LEFT UPPER LEG OPEN VEING HARVEST /GINETTE N/A 08/13/2020 Performed by Leroy Meng MD at [facility] Drug eluting stent left anterior descending N/A 01/09/2020 Performed by Yefri Khan MD at [facility] EXCISION SEROMA LOWER EXTREMITY Left 10/07/2022 Performed by Victor Hugo Vincent DO at [facility] Intravascular ultrasound coronary N/A 08/06/2020 Performed by Hazel Painting MD at [facility] Intravascular ultrasound coronary N/A 01/09/2020 Performed by Yefri Khan MD at [facility] NOTCHARGED/Thrombolysis arterial initial treatment N/A 01/09/2020 Performed by Yefri Khan MD at [facility] TONSILLECTOMY Review of Systems [...] BY MOUTH IN THE MORNING 90 tablet tdhmdgwnlc-awnccmui-ehyrmpwavo (BREZTRI AEROSPHERE) 160-9-4.8 mcg/actuation HFA aerosol inhaler [...] min Stress: No Stress Concern Present (07/25/2023) [place] [employer] - Occupational Stress Questionnaire Feeling of Stress : Only a little Recent Concern: Stress - Stress Concern Present (07/25/2023) [place] [employer] - Occupational Stress Questionnaire Feeling of Stress : Very much Social Connections: Moderately Isolated (07/25/2023) Social Connection and Isolation Panel [NHANES] Frequency of Communication with Friends and Family: Three times a week Frequency of Social Gatherings with Friends and Family: Three times a week Attends Orthodox Services: More than 4 times per year [...] Component Value Units Date/Time Blood culture #1 [[id number]] Collected: 07/25/231756 Specimen: Blood Updated: 07/26/23 1007 Culture NO GROWTH <24 HRS SARS/FLU A+B/RSV by NAAT/Molecular (M4RT Collection Tube) [[id number]] Collected: 07/25/231749 Specimen: Nasopharynx Updated: 07/25/231924 FLU A PCR Negative FLU B PCR Negative RSV by PCR Negative SARS CoV 2 BY PCR Not Detected Blood culture #2 [[id number]] Collected: 07/25/231744 Specimen: Blood Updated: 07/26/23 1007 Culture NO GROWTH <24 HRS SARS/FLU A+B/RSV by NAAT/Molecular (M4RT Collection Tube) [[id number]] Collected: 07/24/232149 Specimen: Nasopharynx Updated: 07/24/232243 FLU [...] Component Value Units Date/Time Blood culture #1 [[id number]] Collected: 07/25/231756 Specimen: Blood Updated: 07/26/23 1007 Culture NO GROWTH <24 HRS SARS/FLU A+B/RSV by NAAT/Molecular (M4RT Collection Tube) [[id number]] Collected: 07/25/231749 Specimen: Nasopharynx Updated: 07/25/231924 FLU A PCR Negative FLU B PCR Negative RSV by PCR Negative SARS CoV 2 BY PCR Not Detected Blood culture #2 [[id number]] Collected: 07/25/231744 Specimen: Blood Updated: 07/26/23 1007 Culture NO GROWTH <24 HRS SARS/FLU A+B/RSV by NAAT/Molecular (M4RT Collection Tube) [[id number]] Collected: 07/24/232149 Specimen: Nasopharynx Updated: 07/24/232243 FLU [...] regurgitation or stenosis. Mitral Valve: There is whmfh-yl-yyow regurgitation. There is no evidence of mitral valve stenosis. Tricuspid Valve: There is moderate regurgitation. RVSP estimated at 40-45 mmHg. Echo complete W/ contrast Result Date: 11/19/2021 Left Ventricle: Systolic function is normal with an ejection fraction of 55-60%. Aortic Valve: There is no regurgitation or stenosis. Mitral Valve: There is hpxff-ml-qgrz regurgitation. There is no evidence of mitral valve stenosis. Tricuspid Valve: There is moderate regurgitation. RVSP calculated at 42 mmHg. RVSP is based on RA pressure of 3 mmHg. ASSESSMENT / PLAN: COPD - BD Acute hypoxic resp failure - O2; wean as tolerated ? Home O2 BONY/OHS BPAP as tolerated Sleep study scheduled for next week DW patient [employer] Work Phone: [phone]) 207-761703-31-2024 Plan of care note* Plan of Care - Gale Chiang RN - 07/26/2023 10:00 AM EDT Problem: Pain Goal: Patient goal is pain score less than 4, able to rest, and participant in treatment plan as appropriate Description: INTERVENTIONS: 1. Encourage patient or legal patient care representative to report early pain and ask [...] per policy 9. Teach patient or legal patient care representative interventions for comforting Outcome: Progressing Note: Evaluation of progress towards goal: Continue to assess for pain and address accordingly Problem: Moderate - High Risk Fall Score Description: Shearer Fall Score of =/> 25 or indicated by [facility] Assessment Goal: Patient should be free from fall Description: Interventions: 1. Bruno to environment 2. Hourly rounds addressing the [...] non-skid footwear 11. Teach patient and patient patient care representative to maintain environment for safety and [...] (cane, walker) within reach 19. Request patient patient care representative bring adaptive equipment/mobility aids from home or obtain and provide as needed 20. Consult pharmacy regarding effects of med's affecting mobility, cognition, and alternatives 21. Obtain physician order for PT if risk factors associated with mobility are present 22. Obtain physician order for OT as appropriate 23. Utilize diversional activities 24. Educate patient and patient patient care representative how to maintain a safe environment during visitationtimes (notify nurse prior to leaving bedside) 25. Consider appropriateness of medical or non-director of medical services 26. Set up voiding schedule as appropriate (every 2 hours) Outcome: Progressing Note: Evaluation of progress towards goal: PT is free of falls, hourly rounding is completed, area is kept clear. [facility]03-31-[facility] Plan of care note* Plan of [...] Nebulizer Duration (Minutes) 10 Position Semi Abebe's [facility]03-31-2024 Plan of care note* Plan of Care - Lissette Mathews RN - 07/26/2023 4:47 AM EDT Problem: Pain Goal: Patient goal is pain score less than 4, able to rest, and participant in treatment plan as appropriate Description: INTERVENTIONS: 1. Encourage patient or legal patient care representative to report early pain and ask [...] per policy 9. Teach patient or legal patient care representative interventions for comforting Outcome: Progressing Note: [...] at the bedside 7. Instruct patient/ patient patient care representative about use of safety devices 8. Include patient/ patient patient care representative in decisions related to safety Outcome: Progressing Note: Evaluation of progress towards goal: Remains free from injury. Safety precautions maintained. Problem: Knowledge Deficit Goal: Patient/patient patient care representative demonstrates understanding of disease process, treatment [...] Score of =/> 25 or indicated by [facility] Assessment Goal: Patient should be free from fall Description: Interventions: 1. Bruno to environment 2. Hourly rounds addressing the [...] non-skid footwear 11. Teach patient and patient patient care representative to maintain environment for safety and [...] (cane, walker) within reach 19. Request patient patient care representative bring adaptive equipment/mobility aids from home or obtain and provide as needed 20. Consult pharmacy regarding effects of med's affecting mobility, cognition, and alternatives 21. Obtain physician order for PT if risk factors associated with mobility are present 22. Obtain physician order for OT as appropriate 23. Utilize diversional activities 24. Educate patient and patient patient care representative how to maintain a safe environment during visitationtimes (notify nurse prior to leaving bedside) 25. Consider appropriateness of medical or non-director of medical services 26. Set up voiding schedule as appropriate [...] distress noted. PT denies shortness of breath. [employer] [id number] History and physical note* Rajni Gimenez MD [...] longer uses a BIPAP 01/28/23 Bipolar disorder ([facility]) Breast injury CHF (congestive heart failure) ([facility]) Chipped tooth Chronic kidney disease COPD (chronic obstructive pulmonary disease) ([facility]) Coronary artery disease Dementia ([facility]) Depression Diarrhea frequent bouts /involuntary Dizziness GERD (gastroesophageal reflux disease) Headache History of coronary artery bypass graft 08/14/2020 Liver disease Low back pain Memory loss Myocardial infarction ([facility]) Apr 2009, swith stent placement Obesity BONY treated with BiPAP 07/31/2022 Osteoarthritis Panic disorder Psoriasis PTSD (post-traumatic stress disorder) Shortness of breath Sleep apnea Visual impairment glasses PAST SURGICAL HISTORY: Past Surgical History: Procedure Laterality Date BREAST BIOPSY BREAST CYST EXCISION Cardiac catheterization N/A 01/09/2020 Performed by Yefri Khan MD at [facility] Cardiac catheterization-LV Cors N/A 08/06/2020 Performed by Hazel Painting MD at [facility] SECTION CHOLECYSTECTOMY COLONOSCOPY N/A 04/03/2017 Performed by Jose Beaver MD at [facility] Coronary angiogram and left ventricular gram/pressure N/A 01/09/2020 Performed by Yefri Khan MD at [facility] CORONARY ANGIOPLASTY WITH STENT PLACEMENT CORONARY ARTERY BYPASS GRAFT X4/ THOMPSON/ SVG X3 / RIGHT UPPER LEG OPEN VEIN HARVEST/ LEFT UPPER LEG OPEN VEING HARVEST /GINETTE N/A 08/13/2020 Performed by Leroy Meng MD at [facility] Drug eluting stent left anterior descending N/A 01/09/2020 Performed by Yefri Khan MD at [facility] EXCISION SEROMA LOWER EXTREMITY Left 10/07/2022 Performed by Victor Hugo Vincent DO at [facility] Intravascular ultrasound coronary N/A 08/06/2020 Performed by Hazel Painting MD at [facility] Intravascular ultrasound coronary N/A 01/09/2020 Performed by Yefri Khan MD at [facility] NOTCHARGED/Thrombolysis arterial initial treatment N/A 01/09/2020 Performed by Yefri Khan MD at [facility] TONSILLECTOMY Travel History Travel [...] min Stress: No Stress Concern Present (07/25/2023) [place] [employer] - Occupational Stress Questionnaire Feeling of Stress : Only a little Recent Concern: Stress - Stress Concern Present (07/25/2023) [place] [employer] - Occupational Stress Questionnaire Feeling of Stress : Very much Social Connections: Moderately Isolated (07/25/2023) Social Connection and Isolation Panel [NHANES] Frequency of Communication with Friends and Family: Three times a week Frequency of Social Gatherings with Friends and Family: Three times a week Attends Orthodox Services: More than 4 times per year [...] BY MOUTH IN THE MORNING 90 tablet ygtoouitgh-qalvjlpp-vxsyvuibhj (BREZTRI AEROSPHERE) 160-9-4.8 mcg/actuation HFA aerosol inhaler [...] is stable and further pending her course. [employer] [id number] History and physical note* Rajni Gimenez MD [...] longer uses a BIPAP 01/28/23 Bipolar disorder ([facility]) Breast injury CHF (congestive heart failure) ([facility]) Chipped tooth Chronic kidney disease COPD (chronic obstructive pulmonary disease) ([facility]) Coronary artery disease Dementia ([facility]) Depression Diarrhea frequent bouts /involuntary Dizziness GERD (gastroesophageal reflux disease) Headache History of coronary artery bypass graft 08/14/2020 Liver disease Low back pain Memory loss Myocardial infarction ([facility]) Apr 2009, swith stent placement Obesity BONY treated with BiPAP 07/31/2022 Osteoarthritis Panic disorder Psoriasis PTSD (post-traumatic stress disorder) Shortness of breath Sleep apnea Visual impairment glasses PAST SURGICAL HISTORY: Past Surgical History: Procedure Laterality Date BREAST BIOPSY BREAST CYST EXCISION Cardiac catheterization N/A 01/09/2020 Performed by Yefri Khan MD at [facility] Cardiac catheterization-LV Cors N/A 08/06/2020 Performed by Hazel Painting MD at [facility] SECTION CHOLECYSTECTOMY COLONOSCOPY N/A 04/03/2017 Performed by Jose Beaver MD at [facility] Coronary angiogram and left ventricular gram/pressure N/A 01/09/2020 Performed by Yefri Khan MD at [facility] CORONARY ANGIOPLASTY WITH STENT PLACEMENT CORONARY ARTERY BYPASS GRAFT X4/ THOMPSON/ SVG X3 / RIGHT UPPER LEG OPEN VEIN HARVEST/ LEFT UPPER LEG OPEN VEING HARVEST /GINETTE N/A 08/13/2020 Performed by Leroy Meng MD at [facility] Drug eluting stent left anterior descending N/A 01/09/2020 Performed by Yefri Khan MD at [facility] EXCISION SEROMA LOWER EXTREMITY Left 10/07/2022 Performed by Victor Hugo Vincent DO at [facility] Intravascular ultrasound coronary N/A 08/06/2020 Performed by Hazel Painting MD at [facility] Intravascular ultrasound coronary N/A 01/09/2020 Performed by Yefri Khan MD at [facility] NOTCHARGED/Thrombolysis arterial initial treatment N/A 01/09/2020 Performed by Yefri Khan MD at [facility] TONSILLECTOMY Travel History Travel [...] min Stress: No Stress Concern Present (07/25/2023) [employer] - Occupational Stress Questionnaire Feeling of Stress : Only a little Recent Concern: Stress - Stress Concern Present (07/25/2023) [employer] - Occupational Stress Questionnaire Feeling of Stress : Very much Social Connections: Moderately Isolated (07/25/2023) Social Connection and Isolation Panel [NHANES] Frequency of Communication with Friends and Family: Three times a week Frequency of Social Gatherings with Friends and Family: Three times a week Attends Orthodox Services: More than 4 times per year [...] BY MOUTH IN THE MORNING 90 tablet uwkyihocbi-ovhtbysg-hnezhoncdp (BREZTRI AEROSPHERE) 160-9-4.8 mcg/actuation HFA aerosol inhaler [...] further pending her course. documented in this encounterMiami Valley HospitalMediGain [id number] Note Procedure: Chest x-ray performed Number of views:2 History:Shortness of breath Comparison:07/24/2023 Findings: The heart and lungs show no acute findings, and the mediastinum and satnam are grossly negative . Impression: 1. No acute change. Finalized by Abdelrahman Patel MD on 07/25/2023 5:16 [id number] Physician Emergency department Note* Mary Lock MD [...] - Primary Other Visit Diagnoses COPD exacerbation ([facility]) Relevant Medications ipratropium-albuteroL (DUONEB) 0.5 mg-3 mg(2.5 mg base)/3 mL nebulizer solution 3 mL (Completed) dexAMETHasone sodium phos (PF) (DECADRON) injection 10 mg ipratropium-albuteroL (DUONEB) 0.5 mg-3 mg(2.5 mg base)/3 mL nebulizer solution 3 mL Acute respiratory failure with hypoxia and hypercapnia ([facility]) Past Medical History: Diagnosis Date Agoraphobia Angina at rest Anxiety BiPAP (biphasic positive airway pressure) dependence Patient states she no longer uses a BIPAP 10/4/23 Bipolar disorder ([facility]) Breast injury CHF (congestive heart failure) ([facility]) Chipped tooth COPD (chronic obstructive pulmonary disease) ([facility]) Coronary artery disease Dementia ([facility]) Depression GERD (gastroesophageal reflux disease) History of coronary artery bypass graft 08/14/2020 Liver disease Low back pain Myocardial infarction ([facility]) Apr 2009, swith stent placement Obesity BNOY treated with BiPAP 07/31/2022 Osteoarthritis Panic disorder PTSD (post-traumatic stress disorder) Sleep apnea Visual impairment glasses Past Surgical History: Procedure Laterality Date BREAST BIOPSY BREAST CYST EXCISION Cardiac catheterization N/A 01/09/2020 Performed by Yefri Khan MD at [facility] Cardiac catheterization-LV Cors N/A 08/06/2020 Performed by Hazel Painting MD at [facility] SECTION CHOLECYSTECTOMY COLONOSCOPY N/A 04/03/2017 Performed by Jose Beaver MD at [facility] Coronary angiogram and left ventricular gram/pressure N/A 01/09/2020 Performed by Yefri Khan MD at [facility] CORONARY ANGIOPLASTY WITH STENT PLACEMENT CORONARY ARTERY BYPASS GRAFT X4/ THOMPSON/ SVG X3 / RIGHT UPPER LEG OPEN VEIN HARVEST/ LEFT UPPER LEG OPEN VEING HARVEST /GINETTE N/A 08/13/2020 Performed by Leroy Meng MD at [facility] Drug eluting stent left anterior descending N/A 01/09/2020 Performed by Yefri Khan MD at [facility] EXCISION SEROMA LOWER EXTREMITY Left 10/07/2022 Performed by Victor Hugo Vnicent DO at [facility] Intravascular ultrasound coronary N/A 08/06/2020 Performed by Hazel Painting MD at [facility] Intravascular ultrasound coronary N/A 01/09/2020 Performed by Yefri Khan MD at [facility] NOTCHARGED/Thrombolysis arterial initial treatment N/A 01/09/2020 Performed by Yefri Khan MD at [facility] TONSILLECTOMY Travel Screening Question [...] sentences at this time. There is no aboriginal community council member available in the ED, so will workon [...] Clinical Impressions as of 07/25/231926 COPD exacerbation ([facility]) Acute respiratory failure with hypoxia and hypercapnia ([facility]) Hypoxia MDM Medical Decision Making Heena Bob ([facility]) documented for Dr. Lock. Chart Reviewed. [...] signing this emergency patient record, the Emergency Physician/ROPEMAN/PA-C attests that all entries made into the electronic medical record by arianna John prior to the Physician/ROPEMAN/PA-C signature reflect an accurate accounting of the evaluation and care rendered by that Emergency Physician/ROPEMAN/PA-C. The Emergency Physician/ROPEMAN/PA-C assumes full responsibility for those entries. The Emergency Physician/ROPEMAN/PA-C also attests that any patient testing or treatment that was instituted by nursing staff in accordance to Emergency Department Preemptive Guidelines have been reviewed and unless so stated elsewhere in this patient chart, the Physician/ROPEMAN/PA-C agrees with the testing and care provided. No Additional Attestations Heena Tran 07/25/23 1728 Heena Tran 07/25/23 1811 Heena Tran 07/25/23 1812 Heena Tran 07/25/23 1812 Heena Tran 07/25/23 1824 Mary Lock MD 07/25/23 182 Heena Tran 07/25/23 1837 Heena Tran 07/25/23 1905 Mary Lock MD 07/25/23 192 Mary Lock MD 07/25/231926 [facility]03-30-2024 Emergency department Note* Mary Lock MD [...] - Primary Other Visit Diagnoses COPD exacerbation ([facility]) Relevant Medications ipratropium-albuteroL (DUONEB) 0.5 mg-3 mg(2.5 mg base)/3 mL nebulizer solution 3 mL (Completed) dexAMETHasone sodium phos (PF) (DECADRON) injection 10 mg ipratropium-albuteroL (DUONEB) 0.5 mg-3 mg(2.5 mg base)/3 mL nebulizer solution 3 mL Acute respiratory failure with hypoxia and hypercapnia ([facility]) Past Medical History: Diagnosis Date Agoraphobia Angina at rest Anxiety BiPAP (biphasic positive airway pressure) dependence Patient states she no longer uses a BIPAP 01/28/23 Bipolar disorder ([facility]) Breast injury CHF (congestive heart failure) ([facility]) Chipped tooth COPD (chronic obstructive pulmonary disease) ([facility]) Coronary artery disease Dementia ([facility]) Depression GERD (gastroesophageal reflux disease) History of coronary artery bypass graft 08/14/2020 Liver disease Low back pain Myocardial infarction ([facility]) Apr 2009, swith stent placement Obesity BONY treated with BiPAP 07/31/2022 Osteoarthritis Panic disorder PTSD (post-traumatic stress disorder) Sleep apnea Visual impairment glasses Past Surgical History: Procedure Laterality Date BREAST BIOPSY BREAST CYST EXCISION Cardiac catheterization N/A 01/09/2020 Performed by Yefri Khan MD at [facility] Cardiac catheterization-LV Cors N/A 08/06/2020 Performed by Hazel Painting MD at [facility] SECTION CHOLECYSTECTOMY COLONOSCOPY N/A 04/03/2017 Performed by Jose Beaver MD at [facility] Coronary angiogram and left ventricular gram/pressure N/A 01/09/2020 Performed by Yefri Khan MD at [facility] CORONARY ANGIOPLASTY WITH STENT PLACEMENT CORONARY ARTERY BYPASS GRAFT X4/ THOMPSON/ SVG X3 / RIGHT UPPER LEG OPEN VEIN HARVEST/ LEFT UPPER LEG OPEN VEING HARVEST /GINETTE N/A 08/13/2020 Performed by Leroy Meng MD at [facility] Drug eluting stent left anterior descending N/A 01/09/2020 Performed by Yefri Khan MD at [facility] EXCISION SEROMA LOWER EXTREMITY Left 10/07/2022 Performed by Victor Hugo Vincent DO at [facility] Intravascular ultrasound coronary N/A 08/06/2020 Performed by Hazel Painting MD at [facility] Intravascular ultrasound coronary N/A 01/09/2020 Performed by Yefri Khan MD at [facility] NOTCHARGED/Thrombolysis arterial initial treatment N/A 01/09/2020 Performed by Yefri Khan MD at [facility] TONSILLECTOMY Travel Screening Question [...] sentences at this time. There is no aboriginal community council member available in the ED, so will workon [...] Clinical Impressions as of 07/25/231926 COPD exacerbation ([facility]) Acute respiratory failure with hypoxia and hypercapnia ([facility]) Hypoxia MDM Medical Decision Making Heena Bob ([facility]) documented for Dr. Lock. Chart Reviewed. [...] signing this emergency patient record, the Emergency Physician/ROPEMAN/PA-C attests that all entries made into the electronic medical record by arianna John prior to the Physician/ROPEMAN/PA-C signature reflect an accurate accounting of the evaluation and care rendered by that Emergency Physician/ROPEMAN/PA-C. The Emergency Physician/ROPEMAN/PA-C assumes full responsibility for those entries. The Emergency Physician/ROPEMAN/PA-C also attests that any patient testing or treatment that was instituted by nursing staff in accordance to Emergency Department Preemptive Guidelines have been reviewed and unless so stated elsewhere in this patient chart, the Physician/ROPEMAN/PA-C agrees with the testing and care provided. [...] on room air 85% [facility] Emergency department Triage note* Jade Alvarez RN - 07/25/2023 4:31 PM EDT Patient presents with complaints of difficulty breathing x's 1 week. Patient states she was seen inthe ER yesterday and diagnosed with Right Lower Lobe pneumonia. SpO2 on room air 85% [facility]03-06-2024 History of Present illness Narrative* Rajni [...] strengthening. 2. Stage 3a chronic kidney disease ([facility]) -recent GFR 45 -again is on multiple [...] Chronic heart failure with preserved ejection fraction ([facility]) -GDMT currently includes beta-georgi, SGLT 2 agent, [...] Exam Vitals reviewed. Exam conducted with a pain coordinator present (Friend/POA). Constitutional: General: She is not [...] THE MORNING, Disp: 90 tablet, Rfl: 3 twpxljwvsp-sixqhnoo-kqdjdswsep (BREZTRI AEROSPHERE) 160-9-4.8 mcg/actuation HFA aerosol inhaler, [...] measurable pneumothorax. Right costophrenic angle excluded from ybkbj-nz-torb. Impression: 1. Persistent effusions, with or without [...] on 04/13/2023 1:48 PM Rajni Steiner DO., [facility] Office: [phone] documented in this encounterMer[facility]02-[facility]24 Miscellaneous Notes* Telephone Encounter - Heena Mendoza - 06/25/2023 2:20 PM EST Order received Scheduled SN at [facility] on 08/11/23 Confirmation emailed [facility] Medicare Dual Complete Medicaid [place] SN Order and 06/25/23 Stephanie Wilson Notes Quick transition to BIPAP- WITH TCO2 monitoring documented in this encounterMer[facility]02-29-[facility]24 Telephone encounter Note* Telephone Encounter - Heena Mendoza - 06/25/2023 2:20 PM EST Order received Scheduled SN at [facility] on 08/11/23 Confirmation emailed [facility] Medicare Dual Complete Medicaid [place] SN Order and 06/25/23 Stephanie Meadows Epic Notes Quick transition to BIPAP- WITH TCO2 monitoring [employer]02-29-2024 History of Present illness Narrative* Grace Meadows, DO - 06/25/2023 10:00 AM EST Images from the original note were not included. [employer] [facility] Progress Note Patient - [...] but also refused. She was admitted to [facility] ICU and seen by Pulmonary there. [...] assess for acuity. Dr. Grace Meadows DO. [facility] Pulmonary & Critical Care Office: [phone] documented in this encounterMer[facility]02-29-2024 Miscellaneous Notes* Telephone Encounter - Bipin Allen - 06/25/2023 9:54 AM EST Pt called in to inform that her battery but she is getting it jumped now, she stated that she will still make it to her 10am appt today w/SE Pls advise pt documented in this encounterMer[facility]02-[facility]24 Telephone encounter Note* Telephone Encounter - Bipin Allen - 06/25/2023 9:54 AM EST Pt called in to inform that her battery but she is getting it jumped now, she stated that she will still make it to her 10am appt today w/SE Pls advise pt [facility]02-05-[facility] History of Present illness Narrative* Rajni [...] Most recently had prolonged hospitalization at [facility] due to severe pneumonia, and [...] Exam Vitals reviewed. Exam conducted with a pain coordinator present (Friend/POA). Constitutional: General: She is not [...] heart failure with preserved ejection fraction ([facility]) - Basic Metabolic Panel; Future - CBC auto differential; Future - TSH with Reflex; Future - reviewed the notes from the recent admission to the. -medication had been changed. Repeat lab as above, and adjust medications as needed to maintain heart failure control without dehydration and kidney injury. Bipolar disorder in partial remission, most recent episode unspecified type ([facility]) -patient with longstanding mental health issues including [...] all these medications. 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 ([facility]) -previous CABG -currently aspirin 81 mg daily, atorvastatin and beta-georgi in the form of propanolol [place] -no changes in current regimen BMI 40.0-44.9, adult ([facility]) .- Patient extremely overweight -reviewed need to [...] of medications as above documented in this encounterCentral Vermont Medical CenterWellpepper [id number] Miscellaneous Notes* Telephone Encounter - Maryellen GLORIA Huertas - 05/18/2023 12:35 PM EST Patient called and stated that she was recently discharged from [facility] on 05/15/2023.Patient stated that she was in the hospital from 04/13/2023 - 04/29/2023, which she was then placedat [facility] [place] due to being on a ventilator. Patient [...] GLORIA Scott - 05/18/2023 12:35 PM EST Hide Sorter contacted patient and informed her of medication [...] will go to ED. documented in this encounterMiami Valley HospitalVendscreen [facility] [id number] Telephone encounter Note* Telephone Encounter - GLORIA Scott - 05/18/2023 12:35 PM EST Patient called and stated that she was recently discharged from [facility] on 05/15/2023.Patient stated that she was in the hospital from 04/13/2023 - 04/29/2023, which she was then placedat [facility] due to being on a ventilator. Patient [...] with BMI 39 Please review and advise. [employer]01-22-2024 Telephone encounter Note* Telephone Encounter - Grace Meadows DO - 05/18/2023 12:35 PM EST Rx sent for doxycycline x 10 days. Needs appt in clinic in May [employer] [id number] Telephone encounter Note* Telephone Encounter - GLORIA Scott - 05/18/2023 12:35 PM EST Hide Sorter contacted patient and informed her of medication [...] stated that she will go to ED. [facility]08-17-2023 Evaluation note* Encounter Date Diagnosis Assessment [...] patient is severely deconditioned I had her industrial tech instructor my office for at least 10 minutes [...] unspecified whether sciatica present (ICD-10 - M54.50) [facility] Other evaluation noteNo assessment information available [facility] Work Phone: Evaluation note* Diagnosis Left shoulder pain, unspecified chronicity- Primary Arthritis of left shoulder region documented in this encounter [facility]* Diagnosis Trigger point of left side of body- Primary Arthritis of left sacroiliac joint (CMS/HCC) Lumbosacral pain Pain of left sacroiliac joint documented in this encounter [facility] HealthcareEvaluation [facility]* Diagnosis Chronic obstructive pulmonary disease, unspecified COPD type (CMS/HCC)- Primary Chronic respiratory failure with hypoxia and hypercapnia (CMS/HCC) Cigarette smoker Tobacco use disorder documented in this encounter [facility] HealthcareEvaluation note* Diagnosis Trigger point of left side of body- Primary documented in this encounter [facility] note* Diagnosis Trigger point of left side of body- Primary Compression fracture of T6 vertebra with routine healing, subsequent encounter Compression fracture of T8 vertebra with routine healing, subsequent encounter Osteoporotic compression fracture of vertebra with routine healing, subsequent encounter [facility] Diagnosis Atherosclerosis of knik coronary artery of knik heart without angina pectoris Hx of hyperlipidemia [facility]* Diagnosis Peripheral polyneuropathy documented [facility]* Diagnosis BONY (obstructive sleep apnea)- Primary Obstructive sleep apnea (adult) (pediatric) Hypoxemia associated with sleep documented [facility] this [facility]* Diagnosis Closed wedge compression fracture of T6 vertebra with routine healing- Primary Acute pulmonary embolism without acute cor pulmonale, unspecified pulmonary embolism type ([facility]) Venous insufficiency of both lower extremities Chronic respiratory failure with hypoxia and hypercapnia ([facility]) Chronic heart failure with preserved ejection fraction ([facility]) Spinal stenosis of lumbar region with neurogenic claudication Peripheral polyneuropathy B12 deficiency documented [facility]* Diagnosis Chronic heart failure with preserved ejection fraction ([facility]) Atherosclerosis of knik coronary artery of knik heart without angina pectoris documented in this encounter [facility]* Diagnosis Closed wedge compression fracture of T6 vertebra with routine healing documented in this encounter [facility]* Diagnosis Closed wedge compression fracture of T6 vertebra with routine healing- Primary Acute pulmonary embolism without acute cor pulmonale, unspecified pulmonary embolism type ([facility]) Spinal stenosis of lumbar region with neurogenic claudication documented in this encounter [facility]* Diagnosis Gastro-esophageal reflux disease without esophagitis documented in this encounter [facility]* Diagnosis Spinal stenosis of lumbar region with neurogenic claudication- Primary documented in this encounter [facility]* Diagnosis Closed wedge compression fracture of T6 vertebra with routine healing documented in this encounter [facility]* Diagnosis Chronic heart failure with preserved ejection fraction ([facility])- Primary Bipolar disorder in partial remission, most recent episode unspecified type ([facility]) 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 ([facility]) BMI 40.0-44.9, adult ([facility]) BONY treated with BiPAP documented in this encounter [facility]* Diagnosis Flu-like symptoms- Primary Community acquired pneumonia, unspecified laterality Chronic heart failure with preserved ejection fraction (CMS-HCC) Community acquired pneumonia, unspecified laterality Chronic heart failure with preserved ejection fraction ([facility]) documented in this encounter [facility]* Diagnosis Shortness of breath Chronic heart failure with preserved ejection fraction ([facility]) documented in this encounter [facility]* Diagnosis BONY treated with BiPAP- Primary Chronic obstructive pulmonary disease, unspecified COPD type ([facility]) Shortness of breath Cigarette nicotine dependence in remission documented in this encounter [facility]* Diagnosis Venous insufficiency of both lower extremities- Primary Chronic heart failure with preserved ejection fraction ([facility]) Acute pulmonary embolism without acute cor pulmonale, unspecified pulmonary embolism type ([facility]) B12 deficiency documented in this encounter [facility]* Diagnosis Fibromyalgia syndrome Unspecified myalgia and myositis documented in this encounter [facility]* Diagnosis Fibromyalgia syndrome- Primary Unspecified myalgia and myositis Stage 3a chronic kidney disease ([facility]) BONY treated with BiPAP Chronic heart failure with preserved ejection fraction ([facility]) Obesity (BMI 30-39.9) documented in this encounter [facility]* Diagnosis Chronic respiratory failure with hypoxia and hypercapnia (CMS-HCC)- Primary COPD exacerbation ([facility]) Obstructive chronic bronchitis with exacerbation Acute respiratory failure with hypoxia and hypercapnia ([facility]) Hypoxia Hypoxemia Chronic respiratory failure with hypoxia and hypercapnia ([facility]) Bipolar 2 disorder, major depressive episode ([facility]) Essential hypertension Unspecified essential hypertension 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 ([facility]) documented in this encounter [facility]* Diagnosis Unilateral groin pain, right- Primary Spinal stenosis of lumbar region with neurogenic claudication Chronic respiratory failure with hypoxia and hypercapnia ([facility]) Chronic heart failure with preserved ejection fraction ([facility]) BONY treated with BiPAP Bipolar disorder in partial remission, most recent episode unspecified type ([facility]) documented in this encounter [facility]* Diagnosis BONY treated with BiPAP documented in this encounter [facility]* Diagnosis Spinal stenosis of lumbar region with neurogenic claudication documented in this encounter [facility]* Diagnosis Chronic respiratory failure with hypoxia and hypercapnia (CMS-HCC)- Primary BONY treated with BiPAP Spinal stenosis of lumbar region with neurogenic claudication Chronic heart failure with preserved ejection fraction (CMS-HCC) documented in this encounter [facility]* Diagnosis Chronic heart failure with preserved ejection fraction (CMS-HCC) documented in this encounter [facility]* Diagnosis Spinal stenosis of lumbar region with neurogenic claudication documented in this encounter [facility]* Diagnosis Chronic heart failure with preserved ejection fraction (CMS-HCC) documented in this encounter [facility]* Diagnosis Chronic heart failure with preserved ejection fraction (CMS-HCC) documented in this encounter [facility]* Diagnosis 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 ([facility])- Primary documented in this encounter [facility]* Diagnosis IFG (impaired fasting glucose)- Primary Peripheral polyneuropathy Stage 3a chronic kidney disease ([facility]) Chronic heart failure with preserved ejection fraction ([facility]) 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 ([facility]) documented in this encounter [facility]* Diagnosis Gastro-esophageal reflux disease without esophagitis documented in this encounter [facility]* Diagnosis Contusion of lower leg, unspecified laterality, initial encounter- Primary documented in this encounter [facility]* Diagnosis IFG (impaired fasting glucose)- Primary Chronic obstructive pulmonary disease, unspecified COPD type ([facility]) Stage 3a chronic kidney disease ([facility]) Chronic respiratory failure with hypoxia and hypercapnia ([facility]) Chronic heart failure with preserved ejection fraction ([facility]) Bipolar 2 disorder, major depressive episode ([facility]) BMI 40.0-44.9, adult ([facility]) 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 ([facility]) B12 deficiency Peripheral polyneuropathy Arthritis of left sacroiliac joint ([facility]) documented in this encounter [facility]* Diagnosis Chronic heart failure with preserved ejection fraction ([facility]) Atherosclerosis of knik coronary artery of knik heart without angina pectoris documented in this encounter [facility]* Diagnosis Gastro-esophageal reflux disease without esophagitis documented in this encounter [facility]* Diagnosis Chronic heart failure with preserved ejection fraction (CMS-HCC)- Primary 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 Hx of CABG Postsurgical aortocoronary bypass status documented in this encounter [facility]* Diagnosis Chronic obstructive pulmonary disease, unspecified COPD type ([facility])- Primary Chronic respiratory failure with hypoxia and hypercapnia ([facility]) BONY (obstructive sleep apnea) Obstructive sleep apnea (adult) (pediatric) [facility] Cervicogenic headache- Primary Headache Orthostatic hypotension Chronic heart failure with preserved ejection fraction ([facility]) Fibromyalgia syndrome Unspecified myalgia and myositis documented in this encounter [facility]* Diagnosis Peripheral polyneuropathy Cervicogenic headache Headache documented in this encounter [facility]* Diagnosis Peripheral polyneuropathy documented in this encounter [facility]* Diagnosis Chronic heart failure with preserved ejection fraction (CMS-HCC)- Primary Pulmonary hypertension ([facility]) Other chronic pulmonary heart diseases Nonrheumatic tricuspid valve regurgitation Essential hypertension Unspecified essential hypertension Atherosclerosis of knik coronary artery of knik heart without angina pectoris History of four vessel coronary artery bypass graft NSTEMI (non-ST elevated myocardial infarction) ([facility]) Acute myocardial infarction, subendocardial infarction, episode of care unspecified documented in this encounter [facility]* Diagnosis Chronic heart failure with preserved ejection fraction ([facility])- Primary Essential hypertension Unspecified essential hypertension Pulmonary hypertension ([facility]) Other chronic pulmonary heart diseases Nonrheumatic tricuspid valve regurgitation Atherosclerosis of knik coronary artery of knik heart without angina pectoris History of four vessel coronary artery bypass graft documented in this encounter [facility]* Diagnosis Microcytic anemia- Primary Unspecified iron deficiency anemia Gastro-esophageal reflux disease without esophagitis Stage 3a chronic kidney disease ([facility]) Spinal stenosis of lumbar region with neurogenic claudication documented in this encounter [facility]* Diagnosis 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 documented in this encounter [facility]* Diagnosis Chronic diastolic heart failure (CMS-HCC)- Primary Chronic diastolic heart failure Pulmonary hypertension (CMS-HCC) Other chronic pulmonary heart diseases Nonrheumatic tricuspid valve regurgitation [facility] Diagnosis Chronic heart failure with preserved ejection fraction (CMS-HCC)- Primary [facility] Diagnosis Chronic diastolic heart failure (CMS-HCC)- Primary Chronic diastolic heart failure [facility] Diagnosis Gastro-esophageal reflux disease without esophagitis [facility] Diagnosis Chronic heart failure with preserved ejection fraction (CMS-HCC) Atherosclerosis of knik coronary artery of knik heart without angina pectoris [facility] N[facility]ative - Reported* Type Description Date Medical History alcoholism Medical HistoryArthritisMedical HistoryemphysemaMedical Historygall bladder diseaseMedical Historyheart diseaseMedical Historyhigh cholesterolMedical Historymigraine headachesMedical HistoryobesityMedical HistorypneumoniaMedical Historypsychiatric disorderMedical Historychronic depressionMedical History anxietySurgical HistoryC sectionSurgical HistorytonsillectomySurgical History gall bladderSurgical Historybreast lump removed q6Sqdiefom Historyopen heart surgeryHospitalization Historysee above surg. hx. [facility] Other Hospital Discharge instructionsNot on filedocumented in [...] be sent through Care Everywhere. * Esophagitis ([place]) * Patellar Tendinopathy ([place]) [facility]Not on [...] December 3:14pm TypeDate RecordedPatient RepresentativeExplanationDurable Power of Inspector Tubes 05/15/2023 8:14 AMLiving Will12/19/2021 11:54 AMLIVING WILLLiving Will11/22/2021 1:59 PMDurable Power of Attorney11/22/2021 1:58 PMDate ActivatedDate Inactivated Comments08/28/2023 4:38 AM08/29/2023 11:50 AMDate ActivatedDate InactivatedComments 08/28/2023 4:09 AM08/28/2023 4:38 AMDate ActivatedDate InactivatedComments07/25/2023 9:03 PM07/27/2023 4:44 PMDate ActivatedDate InactivatedComments05/28/2023 1:53 AM 05/28/2023 12:27 PMDate ActivatedDate LefhgreldfsEkjoxxuo75/19/2023 10:09 PM 04/29/2023 6:44 PMDate ActivatedDate InactivatedComments07/25/2023 9:03 PM07/27/2023 4:44 PMDate ActivatedDate InactivatedComments05/28/2023 1:53 AM05/28/2023 12:27 PM Date ActivatedDate AfncszzbbplEvhovhcd02/19/2023 10:09 PM04/29/2023 6:44 PMDate ActivatedDate InactivatedComments08/06/2020 11:59 AM08/23/2020 3:53 PMDate ActivatedDate InactivatedComments08/06/2020 11:59 AM08/06/2020 11:59 AMTypeDate RecordedPatient RepresentativeExplanationDurable Power of Attorney05/15/2023 8:14 AMLiving Will12/19/2021 11:54 AMLIVING WILLLiving Will11/22/2021 1:59 PMDurable Power of Attorney11/22/2021 1:58 PMDate ActivatedDate InactivatedComments 07/25/2023 9:03 PM07/27/2023 4:44 PMDate ActivatedDate InactivatedComments05/28/2023 1:53 AM05/28/2023 12:27 PMDate ActivatedDate HtnwalcjwudIqapmfwq52/19/2023 10:09 PM04/29/2023 6:44 PMDate ActivatedDate InactivatedComments08/06/2020 11:59 [...] ActivatedDate InactivatedComments05/28/2023 1:53 AM05/28/2023 12:27 PMDate ActivatedDate LrwipiutqqmThzphrto06/19/2023 10:09 PM04/29/2023 6:44 PMCode StatusDate Activated Date [...] care provider Rajni Steiner, DO [address] [place] [address] Referral IDStatusReasonStart DateExpiration DateVisits RequestedVisits [id number] Review/[id number] / ProceduresReferred By ContactReferred To Contact Procedures Adult diet Rajni Steiner, DO [address] [place] [address] Referral IDStatusReasonStart DateExpiration DateVisits RequestedVisits [id number] Review/[id number] / ProceduresReferred By ContactReferred To [facility] Diagnoses Chronic heart failure with preserved ejection fraction ([facility]) Rajni Steiner, DO [address] [place] [address] [facility] [id number] [place] [address] Phone: [phone] Fax: [phone] Referral IDStatusReasonStart DateExpiration DateVisits RequestedVisits [id number] Review Patient Preference /[id number] / ProceduresReferred By ContactReferred To Contact Diagnoses BONY treated with BiPAP Procedures Split Night Sleep Study Grace Meadows DO [address] [address] Referral IDStatusReasonStart DateExpiration DateVisits RequestedVisits [id number] Review/[id number] / ProceduresReferred By ContactReferred To Contact Diagnoses BONY (obstructive sleep apnea) Hypoxemia associated with sleep Procedures Polysomnography 4 or more parameters with PAP titration Grace Meadows DO [address] [facility] [address] [place] [address] Referral IDStatusReasonStart DateExpiration DateVisits RequestedVisits [id number] Review/[id number] / ProceduresReferred By ContactReferred To Contact Diagnoses Trigger point of left side of body Procedures Trigger Point Injection (CPT 40[address] or 100[address]): left gluteus tej [facility]oms [facility] [address] [facility] [address] [place] [address] Referral IDStatusReasonStart DateExpiration DateVisits RequestedVisits [id number]/[id number]/[id number] / Procedures Referred By ContactReferred To ContactOrthopaedic Surgery Diagnoses Left shoulder pain, unspecified chronicity Procedures L Inj/Asp: L subacromial bursa Eusebia Huertas, DO [address] [facility] [address] [place] [address] Referral IDStatusReasonStart DateExpiration DateVisits RequestedVisits [id number]/1/20243/ Additional Source Comments INFORMATION SOURCE (unrecogn ized section and content) DATE CREATED AUTHOR 02/03/2018 [facility] DATE CREATED AUTHOR AUTHOR'S ORGANIZ ATION 12/21/2022 [facility] DATE CREATED AUTHOR AUTHOR'S ORGANIZ ATION 05/03/2023 [facility] DATE CREATED AUTHOR AUTHOR'S ORGANIZ ATION 07/10/2024 [facility] DATE CREATED AUTHOR AUTHOR'S ORGANIZ ATION 09/24/2024 [facility] DATE CREATED AUTHOR AUTHOR'S ORGANIZ ATION 12/17/2024 [facility] DATE CREATED AUTHOR AUTHOR'S ORGANIZ ATION 02/18/2025 [facility] DATE CREATED AUTHOR AUTHOR'S ORGANIZ ATION 02/24/2025 [facility] Care Teams (unrecognized sec tion and content) Team Status: Active Member Role Status Dates Saqib Fowler PA-C Primary Care Provider Activ e Team Status: Inactive Member Role Status Dates Saqib Fowler PA-C Primary Care Provider Activ e [facility] ProviderActiveTeam MemberRelationshipSpecialtyStart DateEnd Date Rajni Steiner MD [address] [place] [address] PCP - GeneralInternal Medicine08/11/23Team MemberRelationshipSpecialtyStart Date End Date Rajni Steiner MD [address] [place] [address] PCP - GeneralInternal Medicine08/11/23Team MemberRelationshipSpecialtyStart Date End Date Rajni Steiner MD [address] [place] [address] PCP - GeneralInternal Medicine08/11/23Team MemberRelationshipSpecialtyStart Date End Date Rajni Steiner MD [address] [place] [address] PCP - GeneralInternal Medicine08/11/23Team MemberRelationshipSpecialtyStart Date End Date Rajni Steiner MD [address] [place] [address] PCP - GeneralInternal Medicine08/11/23Team MemberRelationshipSpecialtyStart Date End Date Rajni Steiner MD [address] [place] [address] PCP - GeneralInternal Medicine08/11/23Team MemberRelationshipSpecialtyStart Date End Date Rajni Steiner MD [address] [place] [address] PCP - GeneralInternal Medicine08/11/23Team MemberRelationshipSpecialtyStart Date End Date Rajni Steiner MD [address] [place] [address] PCP - GeneralInternal Medicine08/11/23Team MemberRelationshipSpecialtyStart Date End Date Rajni Steiner MD [address] [place] [address] PCP - GeneralInternal Medicine08/11/23Team MemberRelationshipSpecialtyStart Date End Date Rajni Steiner DO [address] [place] [address] PCP - GeneralInternal Medicine12/17/23Team MemberRelationshipSpecialtyStart Date End Date Rajni Steiner DO [address] [place] [address] PCP - GeneralInternal Medicine12/17/23Team MemberRelationshipSpecialtyStart Date End Date Rajni Steiner DO [address] [place] [address] PCP - GeneralInternal Medicine07/01/23Team MemberRelationshipSpecialtyStart Date End Date Rajni Steiner DO [address] [place] [address] PCP - GeneralInternal Medicine07/01/23Team MemberRelationshipSpecialtyStart Date End Date Rajni Steiner DO [address] [place] [address] PCP - GeneralInternal Medicine07/01/23Team MemberRelationshipSpecialtyStart Date End Date Rajni Steiner DO [address] [place] [address] PCP - GeneralInternal Medicine07/01/23Team MemberRelationshipSpecialtyStart Date End Date Vickyumair Rajni DO Janae [address] [place] [address] PCP - GeneralInternal Medicine08/24/23Team MemberRelationshipSpecialtyStart Date End Date Vickyumair Rajni Janae DO [address] [place] [address] PCP - GeneralInternal Medicine08/24/23Team MemberRelationshipSpecialtyStart Date End Date Vickyumair Rajni DO Janae [address] [place] [address] PCP - GeneralInternal Medicine08/24/23Team MemberRelationshipSpecialtyStart Date End Date No Pcp, [place] [address] PCP - GeneralFamily Xhfpntzc45/18/23Team MemberRelationshipSpecialtyStart Date End Date No Pcp, [place] [address] PCP - GeneralFamily Vxlvbqse56/18/23Team MemberRelationshipSpecialtyStart Date End Date Rajni Steiner DO [address] [place] [address] PCP - GeneralInternal Medicine08/24/23Team MemberRelationshipSpecialtyStart Date End Date Rajni Setiner DO [address] [place] [address] PCP - GeneralInternal Medicine08/24/23Team MemberRelationshipSpecialtyStart Date End Date Rajni Steiner DO [address] [place] [address] PCP - GeneralInternal Medicine08/24/23Team MemberRelationshipSpecialtyStart Date End Date Rajni Steiner DO [address] [place] [address] PCP - GeneralInternal Medicine08/24/23Team MemberRelationshipSpecialtyStart Date End Date No Pcp, [place] [address] PCP - GeneralFamily Jfzppqqr63/18/23Team MemberRelationshipSpecialtyStart Date End Date Rajni Steiner DO [address] [place] [address] PCP - GeneralInternal Medicine08/24/23Team MemberRelationshipSpecialtyStart Date End Date Rajni Steiner DO [address] [place] [address] PCP - GeneralInternal Medicine08/24/23Team MemberRelationshipSpecialtyStart Date End Date No Pcp, [place] [address] PCP - GeneralFamily Vwxlrfxm62/18/23Team MemberRelationshipSpecialtyStart Date End Date No Pcp, [place] [address] PCP - GeneralFamily Hzuautep39/18/23Team MemberRelationshipSpecialtyStart Date End Date Rajni Steiner DO [address] [place] [address] PCP - GeneralInternal Medicine08/24/23Team MemberRelationshipSpecialtyStart Date End Date No Pcp, [place] [address] PCP - GeneralFamily Cgcjbpce59/18/23Team MemberRelationshipSpecialtyStart Date End Date Rajni Steiner DO [address] [place] [address] PCP - GeneralInternal Medicine07/01/23Team MemberRelationshipSpecialtyStart Date End Date Rajni Steiner DO [address] [place] [address] PCP - GeneralInternal Medicine07/01/23Team MemberRelationshipSpecialtyStart Date End Date Rajni Steiner DO [address] [place] [address] PCP - GeneralInternal Medicine08/24/23Team MemberRelationshipSpecialtyStart Date End Date Rajni Steiner DO [address] [place] [address] PCP - GeneralInternal Medicine08/24/23Team MemberRelationshipSpecialtyStart Date End Date Rajni Steiner DO [address] [place] [address] PCP - GeneralInternal Medicine07/01/23Team MemberRelationshipSpecialtyStart Date End Date Rajni Steiner Janae DO [address] [place] [address] PCP - GeneralInternal Medicine07/01/23Team MemberRelationshipSpecialtyStart Date End Date Rajni Steiner DO [address] [place] [address] PCP - GeneralInternal Medicine12/17/23Team MemberRelationshipSpecialtyStart Date End Date Rajni Steiner DO [address] [place] [address] PCP - GeneralInternal Medicine12/17/23Team MemberRelationshipSpecialtyStart Date End Date Rajni Steiner, DO [address] [place] [address] PCP - GeneralInternal Medicine07/01/23Team MemberRelationshipSpecialtyStart Date End Date Rajni Steiner, DO [address] [place] [address] PCP - GeneralInternal Medicine12/17/23Team MemberRelationshipSpecialtyStart Date End Date Rajni Steiner, DO [address] [place] [address] PCP - GeneralInternal Medicine12/17/23Team MemberRelationshipSpecialtyStart Date End Date Rajni Steiner, DO [address] [place] [address] PCP - GeneralInternal Medicine12/17/23Team MemberRelationshipSpecialtyStart Date End Date Rajni Steiner DO [address] [place] [address] PCP - GeneralInternal Medicine12/17/23Team MemberRelationshipSpecialtyStart Date End Date Rajni Steiner DO [address] [place] [address] PCP - GeneralInternal Medicine12/17/23Team MemberRelationshipSpecialtyStart Date End Date Rajni Steiner DO [address] [place] [address] PCP - GeneralInternal Medicine12/17/23Team MemberRelationshipSpecialtyStart Date End Date Rajni Steiner DO [address] [place] [address] PCP - GeneralInternal Medicine12/17/23Team MemberRelationshipSpecialtyStart Date End Date Rajni Steiner, DO [address] [place] [address] PCP - GeneralInternal Medicine12/17/23Team MemberRelationshipSpecialtyStart Date End Date Rajni Steiner, DO [address] [place] [address] PCP - GeneralInternal Medicine12/17/23Team MemberRelationshipSpecialtyStart Date End Date Rajni Steiner MD PCP - GeneralInternal Medicine08/11/23Team MemberRelationshipSpecialtyStart Date End Date Rajni Steiner MD PCP - GeneralInternal Medicine08/11/23Team MemberRelationshipSpecialtyStart Date End Date Rajni Steiner DO [address] [place] [address] PCP - GeneralInternal Medicine12/17/23Team MemberRelationshipSpecialtyStart Date End Date Rajni Steiner DO [address] [place] [address] PCP - GeneralInternal Medicine12/17/23Team MemberRelationshipSpecialtyStart Date End Date Rajni Steiner DO [address] [place] [address] PCP - GeneralInternal Medicine12/17/23Team MemberRelationshipSpecialtyStart Date End Date Rajni Steiner DO [address] [place] [address] PCP - GeneralInternal Medicine12/17/23Team MemberRelationshipSpecialtyStart Date End Date Rajni Steiner DO [address] [place] [address] PCP - GeneralInternal Medicine12/17/23Team MemberRelationshipSpecialtyStart Date End Date Rajni Steiner DO [address] [place] [address] PCP - GeneralInternal Medicine12/17/23Team MemberRelationshipSpecialtyStart Date End Date Rajni Steiner MD PCP - GeneralInternal Medicine08/11/23Team MemberRelationshipSpecialtyStart Date End Date Rajni Steiner DO [address] [place] [address] PCP - GeneralInternal Medicine12/17/23Team MemberRelationshipSpecialtyStart Date End Date Rajni Steiner DO [address] [place] [address] PCP - GeneralInternal Medicine12/17/23Team MemberRelationshipSpecialtyStart Date End Date Rajni Steiner DO [address] [place] [address] PCP - GeneralInternal Medicine12/17/23Team MemberRelationshipSpecialtyStart Date End Date Rajni Steiner DO [address] [place] [address] PCP - GeneralInternal Medicine12/17/23Team MemberRelationshipSpecialtyStart Date End Date Rajni Steiner DO [address] [place] [address] PCP - GeneralInternal Medicine12/17/23 Goals (unrecognized section and content) Goals may be documented in a n alternate sectionNo Information REASON FOR VISIT (unrecogniz ed section and content) ReasonCommentsPainReasonCommentsChronic hypoxic respiratory failureConsultation ReasonCommentsFollow-upReasonOnset DateCommentsMed [id number] CommentsMed RefillReasonOnset DateCommentsMed [id number] Date CommentsSleep Lab4Pap OrderReasonCommentscompression fractor and leakage in legsReasonOnset DateCommentsMed [id number] month recheckReasonOnset DateCommentsMed [id number] Patient ReasonCommentsCoughCongestion,cough yellow, 1 weekReasonCommentsHospital Follow-upCOVID Pneumonia - Early AprilXR: 04/28/2023 and 05/27/2023 ReasonOnset DateCommentsSleep Lab06/25/2023Split NightReasonCommentsFollow-up1 monthReasonCommentsHyperlipidemiaHypertensionReasonCommentsShortness of Breath SpecialtyDiagnoses / ProceduresReferred By ContactReferred To Contact Diagnoses Shortness of breath Hypoxia COPD exacerbation (CMS-HCC) Acute respiratory failure with hypoxia and hypercapnia (CMS-HCC) Rajni Gimenez MD [address] [place] [address], [address] [place] [address] Referral IDStatusReasonStart DateExpiration DateVisits RequestedVisits [id number] / ProceduresReferred By ContactReferred To Contact Diagnoses BONY (obstructive sleep apnea) Hypoxemia associated with sleep Procedures Polysomnography 4 or more parameters [place] [address] [place] [id number] Referral IDStatusReasonStart DateExpiration DateVisits RequestedVisits [id number] care SpecialtyDiagnoses / ProceduresReferred By ContactReferred To Contact Diagnoses BONY treated with BiPAP Procedures Split Night Sleep Study Grace [place]ows, DO [address] [place] [address] Referral IDStatusReasonStart DateExpiration DateVisits RequestedVisits [id number]xy HyperlipidemiaReasonOnset DateCommentsMed [id number] Date CommentsMed [id number] Change RequestReasonComments Follow-upEST PT F/U 4 MS L/S RDGReasonCommentsCOPDReasonCommentsControlled SubstanceReasonOnset DateCommentsMed [id number]/15/2024ReasonCommentsFollow-upEST PT F/U 6 MS L/S TMPReasonCommentsSleep Apnea6 [...] BE BASED ON THE PRIMARY CLINICAL RECORDS. [facility] provides no warranty or guarantee of the accuracy or completeness of information in this document.
[2025-03-27 10:09] VITALS: BP 134/77; PULSE 76; TEMP 36.7; O2SAT 94
[2025-03-27 10:51] VITALS: BP 125/66; PULSE 60; O2SAT 92
[2025-03-27 10:52] VITALS: PULSE 72; O2SAT 92
[2025-03-27] MEDS: BUPIVACAINE HCL 0.25% PF 25 MG/10 ML VIAL INJ (10:53)
[2025-03-27] MEDS: LIDOCAINE HCL 2% 400 MG/20 ML MDV INJ (10:53)
[2025-03-27 10:54] VITALS: BP 124/65
[2025-03-27] MEDS: METHYLPREDNISOLONE ACETATE 40 MG/ML VIAL INJ (10:54)
--- NOTE | 2025-03-27 10:55 | W.PM.PROCNOT ---
Date of procedure: 03/27/25 Pre-op diagnosis: Pain due left shoulder osteoarthritis Post-op diagnosis: same as pre-op Procedure: Procedure: Left shoulder suprascapular and axillary nerve block Medications: Bupivacaine 0.25% 3cc, depomedrol 40mg The patient was seen and examined in the preoperative holding area. Informed consent was obtained and placed on the chart.? The patient was brought to the medical procedure unit and placed in the prone position. A timeout was completed verifying correct patient, procedure site, positioning, plan, and special equipment.? Using aseptic technique, under direct fluoroscopic visualization, a 25-gauge 3-1/2 inch spinal needle was advanced to the superior portion of the left posterior osseous rim of the glenoid fossa, lateral and superior to the spinal glenoid notch.? 0.5 cc of the above solution was injected.? The needle was then redirected 3 mm inferiorly and another 0.5 cc of the above medication was injected.? This needle was then removed.? Using aseptic technique, under direct fluoroscopic visualization, another 25-gauge 3-1/2 inch spinal needle was advanced toward the most inferior and lateral border of the greater tubercle.? 0.5 cc of the above medication was administered.? The needle was then redirected 3 mm inferiorly.? 0.5 cc was administered in this region.? This needle was removed. ? The patient was taken to the postprocedural recovery area and monitored for an appropriate length of time before being found suitable for discharge in the accompaniment of a responsible adult. Anesthesia: Local Surgeon: Ligia Root Pathology: none sent Condition: stable Disposition: no change
== END 2025-03-27 11:01 | disposition home or self-care (01) ==
PROVIDERS: PCP Internal Medicine; Visit Provider Anesthesiology
DX: M19.012 Primary osteoarthritis, left shoulder (principal); M25.512 Pain in left shoulder
CPT/HCPCS: 64417; 64418; J0665; J1010

== ENCOUNTER 2025-04-05 10:27 | Outpatient (OUT) | payer MEDICARE, MEDICAID, SELFPAY ==
--- OUTSIDE RECORDS SUMMARY | 2025-04-05 10:36 | XMS_ITS | CCD ---
Author Organization [facility] Clini[facility] Care Team Providers Care Certified Nurses Aide Name Role Phone Hercher, Nadege L Unavailable [...] Unavailable Rajni Steiner MD Primary Care Provider [phone] Yusunshine CABRERA, Rajni Cardoso Primary Care Provider [...] Unavailable Rajni Steiner DO Primary Care Provider [phone] Rajni Steiner MD Primary Care Provider SYDNIE [...] OnsetReaction(s) Facility (1 source)morphine; Translations: [Morphine Sulfate][facility] (2 sources)penicillin; Translations: [penicillin][facility] (20 sources)Morphine; Translations: [morphine]Drug [id number] Hallucinations, Other (See Comments)[facility] (20 sources)Penicillins; Translations: [Penicillins]Allergy to substance 79-08-6892IlpkzsturvcRbbepixmqFostoria City Hospital (18 sources)fentaNYL; Translations: [FENTANYL]Drug Usvchdn34-37-1716[place] (See Comments)[facility] Medications Current Medications MedicationDrug Class(es)DatesSig (Normalized)Sig (Original)acetaminophen 325 mg oral tablet (20 sources)Start: 92-06-0441pdoq 2 tablets by mouth every four hours as needed for pain and headacheacetaminophen (TYLENOL) 325 mg tablet Take 2 tablets (650 mg total) by mouth every 4 (four) hours as needed for pain or headaches. 30 tablet 07/27/2023 ActiveStart: 07-25-2023 End: 14-87-0381enzn 1 tablet by mouth every four hours as needed for headache and bkmo093 mg, oral, Every 4 hours PRN, headaches, moderate pain - pain scale 4-6, Starting on 07/25/23at 210take 1 tablet by mouth every four hours as needed for painacetaminophen (Tylenol) 325 MG tablet Take 325 mg by mouth every 4 (four) hours if needed for mild pain [id number] 200 actuat albuterol 0.09 mg/actuat metered dose inhaler (20 sources)beta2-Adrenergic AgonistStart: 09-21-2024 End: 06-63-2492wvrr 2 puff(s) by inhalation every four hours [...] oral tablet (20 sources)Atypical AntipsychoticStart: 07-27-2023 End: 80-73-7433YYYKaweabdva (ABILIFY) tablet 15 mgStart: 05-13-2023 End: 66-11-6839yggh 1 tablet by mouth once dailyARIPiprazole (ABILIFY) 15 mg tablet Take 1 tablet (15 mg total) by mouth nightly. 05/13/2023 ActiveStart: 09-09-7006scih 10 mg by mouth once daily at bedtimeAripiprazole Active 10 MG PO Daily at bedtime June 22, 2018 1:00amStart: 42-93-9858bgsk 5 mg by mouth once dailyAripiprazole Active 5 MG PO Daily June 08, 2018 1:00am End: 21-51-3704xcno 1 tablet by mouth once dailyARIPiprazole (Abilify) 15 MG disintegrating tablet Take 15 mg by mouth Daily 03/17/2024 Discontinued (Med list cleanup) End: 35-10-7997bvko 2 tablets by mouth once dailyARIPiprazole (ABILIFY) 10 mg tablet Take 2 tablets (20 mg total) by mouth nightly. 0 06/01/2023 Discontinued (Duplicate Listing)take 1 tablet by mouth every twenty-four hoursAbilify 30 MG 1 tablet Orally Once a day Activeatorvastatin 80 mg oral tablet (20 sources)HMG-CoA Reductase InhibitorStart: 34-69-5920smdf 1 tablet by mouth in the morningatorvastatin (LIPITOR) 80 mg tablet Indications: Atherosclerosis of [place] coronary artery of [place] heart without angina pectoris , Hx of hyperlipidemia Take 1 tablet (80 mg total) by mouth in the morning. 90 tablet 3 04/26/2024 ActiveStart: 76-45-9260refh 1 tablet by mouth in the morning atorvastatin (LIPITOR) 80 mg tablet Indications: Atherosclerosis of [place] coronary artery of [place] heart without angina pectoris , Hx of hyperlipidemia TAKE 1 TABLET (80 MG TOTAL) BY MOUTH IN THE MORNING 90 tablet 3 04/09/2024 ActiveStart: 07-26-2023 End: 48-80-0282hykn 80 mg by mouth once daily80 mg, oral, Daily, First dose on 07/26/23 at 0900, Look-alike/sound-alike medication - verify indication for use.Start: 04-09-2023 End: 69-15-2347uyjn 1 tablet by mouth in the morningatorvastatin (LIPITOR) 80 mg tablet Indications: Atherosclerosis of [place] coronary artery of [place] heart without angina pectoris , Hx of hyperlipidemia Take 1 tablet (80 mg total) by mouth in the morning. 90 tablet 3 04/26/2024 Activebenztropine mesylate 0.5 mg oral tablet (1 source)Anticholinergic, AntihistamineStart: 73-46-8827pcjg 0.5 mg by mouth every six hoursBenztropine Active 0.5 MG PO Q6H 60 June 22, 2018 1:34lv724 actuat budesonide 0.16 mg/actuat / formoterol fumarate 0.0048 mg/actuat / glycopyrrolate 0.009 mg/actuat metered dose inhaler (20 sources)Corticosteroid, beta2-Adrenergic AgonistStart: 11-54-4716epig 2 puff(s) by inhalation in the fargpjfahwposgfxt-qupsvnrk-ulktnlekci (BREZTRI AEROSPHERE) 160-9-4.8 mcg/actuation HFA aerosol inhaler Indications: Chronic obstructive pulmonary disease, unspecified COPD type ([facility]) Inhale 2 puffs in the morning and 2 puffs before bedtime. 10.7 g 10 06/25/2023 Active End: 16-41-4418Wumujqu-Glycopyrrol-Formoterol (Breztri Aerosphere) 160-9-4.8 MCG/ACT aerosol Inhale 09/21/2024 Discontinued (Reorder)celecoxib 200 mg oral capsule (20 sources)Nonsteroidal Anti-inflammatory DrugStart: 02-22-2024 End: 89-23-4746llkvjonhd (CeleBREX) 200 MG capsule 02/22/2024 Active cholecalciferol [...] ActiveclonazePAM 0.5 mg oral tablet (20 sources)BenzodiazepineStart: 14-30-0508jdmz 1 tablet by mouth in the morning, then take 1 tablet by mouth at bedtimeclonazePAM (KlonoPIN) 0.5 mg tablet Take 1 tablet (0.5 mg total) by mouth in the morning and 1 tablet (0.5 mg total) before bedtime. 09/14/2023 ActiveStart: 07-26-2023 End: 93-10-5135gkknfrjUNF (KlonoPIN) tablet 0.5 mgStart: 05-13-2023 End: 45-03-4091rzqcasiAES (KlonoPIN) 0.25 mg disintegrating tablet Dissolve 1 tablet (0.25 mg total) on tongue 2 (two) times a day as needed. 0 05/13/2023 ActiveStart: 05-13-2023 End: 11-07-4975ldhqttsURQ (KlonoPIN) 0.25 mg disintegrating tablet Dissolve 2 tablets (0.5 mg total) on tongue 2 (two) times a day as needed. 05/13/2023 09/24/2023 Discontinued (Dose adjustment)Start: 01-07-2018 End: 86-90-8992usvu 0.5 mg by mouth twice dailyClonazepam Discontinued 0.5 MG PO Twice daily January 07, 2018 12:00am January 18, 2018 11:12amtake 1 tablet by mouth every twenty-four hoursKlonoPIN 0.5 MG 1 tablet Orally Once a day Activediclofenac sodium 50 mg / miSOPROStol 0.2 mg delayed release oral tablet (6 sources)Nonsteroidal Anti-inflammatory Drug, Prostaglandin E1 AnalogStart: 84-61-4830knvk 1 tablet by mouth in the morningdiclofenac-miSOPROStol (ARTHROTEC 50) 50-200 mg-mcg EC tablet Take 1 tablet by mouth in the morningand 1 tablet before bedtime. 60 tablet 2 01/04/2025 Uwhbgqgmlavq-oqfwcecpo-ldj,al-simeth (FIRST-MOUTHWASH BLM) 66-917-822-40 mg/30mL mouthwash (6 sources)Start: 71-92-2284caix 5 mL by mouth four times daily as needed mgrmob-tcfzuxiot-ccr,al-simeth (FIRST-MOUTHWASH BLM) 26-970-496-40 mg/30mL mouthwash Indications: Stomatitis Take 5 mL by mouth 4 (four) times a day as needed for mucositis or mouth/gum irritation. 119 mL 1 01/10/2025 Activedoxepin hydrochloride 75 mg oral capsule (20 sources)Tricyclic Antidepressantdoxepin (SINEquan) 75 mg capsule Active End: 48-83-6489ozwk 3 capsules by mouth once dailydoxepin (SINEquan) 25 mg capsule Take 3 capsules (75 mg total) by mouth nightly. 0 06/01/2023 Discon tinued (Duplicate Listing)empagliflozin 10 mg oral tablet (20 sources)Sodium-Glucose Cotransporter 2 InhibitorStart: 04-12-2024 End: 73-39-4074wokz 1 tablet by mouth in the morningJARDIANCE 10 mg tablet tablet Indications: Chronic heart failure with preserved ejection fraction (CMS- HCC) , Atherosclerosis of [place] coronary artery of [place] heart without angina pectoris TAKE 1 TABLET (10 MG) BY MOUTH IN THE MORNING 90 tablet 1 02/28/2025 ActiveStart: 09-01-2022 End: 05-91-8573bwxc 1 tablet by mouth in the morningJARDIANCE 10 mg tablet tablet Indications: Chronic heart failure with preserved ejection fraction (CMS- HCC) , Atherosclerosis of [place] coronary artery of [place] heart without angina pectoris TAKE 1 TABLET (10 MG TOTAL) BY MOUTH IN THE MORNING 90 tablet 3 10/02/2023 Activetake 25 mg by mouth once dailyJARDIANCE 25 mg daily orally Activeezetimibe 10 mg oral tablet (20 sources)Dietary Cholesterol Absorption InhibitorStart: 07-08-2024 End: 40-86-9777uuky 1 tablet by mouth in the morningezetimibe (ZETIA) 10 mg tablet Indications: Atherosclerotic heart disease of [place] coronary arterywith other forms of angina pectoris TAKE 1 TABLET (10 MG TOTAL) BY MOUTH IN THE MORNING 90 tablet Activefolic acid 1 mg oral tablet (1 source)Start: 92-23-9719buzk 1 mg by mouth once dailyFolic Acid Active 1 MG PO Daily June 22, 2018 1:00am12 hr guaiFENesin 600 mg extended release oral tablet (14 sources)Start: 44-84-0223aqtb 1 tablet by mouth onceguaiFENesin (MUCINEX) 600 mg tablet extended release 12hr Take 1 tablet (600 mg total) by mouth every 12 (twelve) hours. 14 tablet 12/06/2024 ActivehydrOXYzine hydrochloride 25 mg oral tablet (20 sources)AntihistamineStart: 51-07-1498csgy 1 tablet by mouth twice daily as needed for anxietyhydrOXYzine (ATARAX) 25 mg tablet Take 1 tablet (25 mg total) by mouth 2 (two) times a day as needed for anxiety. 12/06/2024 ActiveStart: 13-35-6269eaie 1 tablet by mouth once dailyhydrOXYzine HCl (Atarax) 25 MG tablet Take 25 mg by mouth Daily 02/29/2024 ActiveStart: 13-93-7353yrgl 50 mg by mouth three times dailyHydroxyzine [...] oral tablet (20 sources)Mood Stabilizer, Anti-epileptic AgentStart: 97-85-0689vdvs 1 tablet by mouth in the morninglamoTRIgine (LaMICtal) 150 mg tablet Take 1 tablet (150 mg total) by mouth in the morning. 10/07/2023 ActiveStart: 07-26-2023 End: 43-82-5331xzaw 100 mg by mouth once grbza981 mg, oral, Daily, First dose on 07/26/23 at 0900, Look-alike/sound-alike medication - verify indication for use. End: 29-27-3025sbnb 4 tablets by mouth in the morninglamoTRIgine (LaMICtal) 25 mg tablet Take 4 tablets (100 mg total) by mouth in the morning. 0 06/01/2023 Discontinued (Dose adjustment)[place] (1 source)[place] Activelithium carbonate 450 mg extended release oral tablet (1 source)Start: 57-57-1795grhj 900 mg by mouth once daily at bedtimeLithium Carbonate Active 900 MG PO Daily at bedtime 60 June 22, 2018 1:00am methocarbamol 750 mg oral tablet (8 sources)Muscle Relaxant End: 47-88-5469laklyeliuyfya (Robaxin) 750 MG tablet TAKE 1 TABLET BY MOUTH EVERY 12 HOURS FOR 30 DAYS for 30 Ynqjhz90 hr metoprolol succinate 25 mg extended release oral tablet (17 sources)beta-Adrenergic BlockerStart: 52-36-9251gwxf 1 tablet by mouth once dailymetoprolol succinate XL (TOPROL XL) 25 mg 24 hr tablet Indications: Chronic heart failure with preserved ejection fraction (CMS-HCC) , Pulmonary hypertension ([facility]-HCC) , Nonrheumatic tricuspid valve regurgitation , Essential hypertension , Atherosclerosis of [place] coronary artery of [place] heart without angina pectoris , History of four vessel coronary artery bypass graft , NSTEMI (non-ST elevated myocardial infarction) ([facility]) Take 1 tablet (25 mg total) by mouth nightly. 30 tablet 11 11/28/2024 Activemirtazapine 45 mg oral tablet (3 sources)Start: 18-87-6494uxdu 45 mg by mouth once daily at bedtimeMirtazapine Active 45 MG PO Daily at bedtime June 22, 2018 1:00amStart: 01-18-2018 End: 25-33-7748ffbr 45 mg by mouth at bedtimeMirtazapine Discontinued 45 MG PO Bedtime January 18, 2018 12:00am June 08, 2018 11:26amStart: 01-07-2018 End: 08-82-5569ivtp 30 mg by mouth at bedtimeMirtazapine Discontinued 30 MG PO Bedtime January 07, 2018 12:00am January 18, 2018 11:12am24 hr nicotine 0.875 mg/hr transdermal system (2 sources)Cholinergic Nicotinic AgonistStart: 30-92-2283Bkbbibzz Active 1 EACH TRANSDERML Daily June 22, 2018 1:00amStart: 01-18-2018 End: 29-19-2962Mjqjjdxd Discontinued 1 EACH TRANSDERML Daily January 18, 2018 12:00am June 08, 2018 11:26amondansetron 4 mg disintegrating oral tablet (11 sources)Serotonin-3 Receptor AntagonistStart: 97-07-3978bcna 1 tablet by mouth every eight hours as needed for nauseaondansetron ODT (ZOFRAN ODT) 4 mg disintegrating tablet Dissolve 1 tablet (4 mg total) on tongue every 8 (eight) hours as needed for nausea for up to 10 doses. 10 tablet 02/09/2025 Active End: 22-92-2792usnf 1 tablet by mouth every eight hours as needed for nausea and vomitingondansetron (ZOFRAN) 4 mg tablet Take 1 tablet (4 mg total) by mouth every 8 (eight) hours as needed for nausea or vomiting. 0 07/27/2023 Discontinued (Stop Taking at Discharge)Oxygen (17 sources)oxygen Inhale 2 L/min continuously. Activepantoprazole 40 mg delayed release oral tablet (20 sources)Proton Pump InhibitorStart: 64-24-9476rklg 1 tablet by mouth once daily before breakfastpantoprazole (PROTONIX) 40 mg EC tablet Indications: Gastro-esophageal reflux disease without esophagitis TAKE 1 TABLET BY MOUTH EVERY DAY IN THE MORNING BEFORE BREAKFAST 90 tablet 02/24/2025 ActiveStart: 07-01-2023 End: 28-91-4357pwuy 1 tablet by mouth once daily before breakfastpantoprazole (PROTONIX) 40 mg EC tablet Indications: Gastro-esophageal reflux disease without esophagitis Take 1 tablet (40 mg total) by mouth every morning before breakfast. 90 tablet 11/07/2024 02/24/2025 Discontinuedtake 2 tablets by mouth every twenty-four hoursPantoprazole Sodium 40 MG 2 tablets Orally Once a day Activepotassium chloride 20 meq extended release oral tablet (20 sources)Start: 93-47-8812lpoeklgrt chloride (K-TAB,KLOR-CON) 20 mEq CR tablet Take [...] Activepregabalin 100 mg oral capsule (20 sources)Start: 25-09-5266pqsp 1 capsule by mouth at bedtimepregabalin (LYRICA) 100 mg capsule Indications: Peripheral polyneuropathy Take 1 capsule (100 mg total) by mouth before bedtime. 12/06/2024 ActiveStart: 03-07-2024 End: 69-77-5655wkqn 1 capsule by mouth at bedtimepregabalin (LYRICA) 100 mg capsule Indications: Peripheral polyneuropathy Take 1 capsule (100 mg total) by mouth before bedtime. 12/06/2024 ActiveStart: 01-26-2024 End: 92-02-3110hpda 1 capsule by mouth in the morning, then take 1 capsule by mouth at bedtimepregabalin (LYRICA) 50 mg capsule Indications: Peripheral polyneuropathy Take 1 capsule (50 mg total) by mouth in the morning and 1 capsule (50 mg total) before bedtime. 60 capsule 01/26/2024 03/07/2024 Discontinued (Reorder)propranolol hydrochloride 40 mg oral tablet (20 sources)beta-Adrenergic BlockerStart: 10-07-2024 End: 30-53-2149vmfr 1 tablet by mouth at bedtime, then take 1 tablet by mouth at bedtimepropranoloL (INDERAL) 40 mg tablet Take 1 tablet (40 mg total) by mouth in the morning and at bedtime. TAKE 1 TABLET (40 MG TOTAL) BY MOUTH IN THE MORNING AND BEFORE BEDTIME 11/08/2024 ActiveStart: 07-25-2023 End: 83-80-4102cens 40 mg by mouth twice daily40 mg, oral, 2 times daily, First dose on 07/25/23 at 2115, Look-alike/sound-alike medication - verify indication for use. End: 08-36-2275cmpk 1 capsule by mouth every twenty-four hours at bedtime propranolol XL (Innopran XL) 80 MG 24 hr capsule Take 80 mg by mouth at bedtime Do not crush, chew,or split. Activetake 1 tablet by mouth every twelve hours Propranolol HCl 80 MG 1 tablet Orally Twice a day Activesalmon calcitonin 200 unt/actuat nasal spray (20 sources)CalcitoninStart: 09-09-2023 End: 76-53-1224dfnz 1 spray(s) nasal route in the morningcalcitonin, salmon, (Miacalcin) 200 UNIT/ACT nasal spray Administer 1 spray into affected nostril(s) in the morning. 09/09/2023 Activespironolactone 25 mg oral tablet (20 sources)Aldosterone AntagonistStart: 04-12-2024 End: 93-03-8562zkba 1 tablet by mouth in the morningspironolactone (ALDACTONE) 25 mg tablet Indications: Chronic diastolic heart failure (CMS-HCC) Take1 tablet (25 mg total) by mouth in the morning. 90 tablet 3 02/06/2025 ActiveStart: 11-10-2022 End: 74-75-7938lozr 1 tablet by mouth in the morningspironolactone (ALDACTONE) 25 mg tablet Indications: Shortness of breath , Chronic heart failure with preserved ejection fraction (CMS-HCC) TAKE 1 TABLET (25 MG TOTAL) BY MOUTH IN THE MORNING 90 tablet 3 11/02/2023 ActiveSUMAtriptan 50 mg oral tablet (20 sources)Serotonin-1b and Serotonin-1d Receptor AgonistStart: 06-22-2023 End: 98-39-1028RRAGhgvbdeo (IMITREX) 50 mg tablet TAKE 1 TABLET BY MOUTH DIRECTED 0 06/22/2023 ActiveStart: 10-16-2021 End: 79-42-5431SOOAfcqlwxh (IMITREX) 25 mg tablet Take by mouth as needed. 10/16/2021 09/24/2023 Discontinued (Duplicate Listing)SUMAtriptan (Imitrex) 25 MG tablet Take 25 mg by mouth 1 (one) time if needed for migraine May repeat dose once in 2 hours if no relief. Do not exceed 2 doses in 24 hours. Active topiramate 100 mg oral tablet (20 sources)Start: 01-04-2024 End: 08-26-7777nepm 1 tablet by mouth at bedtimetopiramate (Topamax) 100 MG tablet TAKE 1 TABLET (100 MG TOTAL) BY MOUTH IN THE MORNING AND AT BEDTIME FOR 90 DAYS. 03/30/2024 ActiveStart: 10-06-2023 End: 66-87-8802jiwh 1 tablet by mouth twice dailytopiramate (TOPAMAX) 50 mg tablet Indications: Spinal stenosis of lumbar region with neurogenic talib dication take 1 tablet by mouth twice a day for 90 days 180 tablet 01/01/2024 01/04/2024 Discontinuedtake 1 tablet by mouth twice dailytopiramate (TOPAMAX) 50 mg tablet TAKE 1 TABLET BY MOUTH TWICE A DAY FOR 30 DAYS Active End: 30-89-1546vpak 1 tablet by mouth three times dailytopiramate (TOPAMAX) 25 mg tablet Take 1 tablet (25 mg total) by mouth 3 (three) times a day. 0 08/2023 Discontinued (Dose adjustment)torsemide 20 mg oral tablet (20 sources)Loop DiureticStart: 49-48-2350vtlx 4 tablets by mouth once daily torsemide (DEMADEX) 20 mg tablet Indications: Chronic diastolic heart failure (CMS-HCC) Take 4 tablets (80 mg total) by mouth daily. 120 tablet 11 02/21/2025 ActiveStart: 02-06-2025 End: 93-99-3615fwnd 2 tablets by mouth once dailytorsemide (DEMADEX) 20 mg tablet Indications: Chronic diastolic heart failure (CMS-HCC) Take 2 tablets (40 mg total) by mouth daily. 60 tablet 11 02/06/2025 02/21/2025 DiscontinuedStart: 12-15-2024 End: 48-54-3727rymu 3 tablets by mouth once dailytorsemide (DEMADEX) 10 mg tablet Take 3 tablets (30 mg total) by mouth daily. 12/15/2024 02/06/2025 DiscontinuedStart: 86-83-3640hdkc 3 tablets by mouth once daily as needed, then take 3 tablets by mouth once daily as neededtorsemide (DEMADEX) 20 mg tablet Indications: Chronic heart failure with preserved ejection fraction (CMS-HCC) , Pulmonary hypertension (CMS-HCC) , Nonrheumatic tricuspid valve regurgitation , Essential hypertension , Atherosclerosis of [place] coronary artery of [place] heart without angina pectoris, History of four vessel coronary artery bypass graft , NSTEMI (non-ST elevated myocardial infarction) (CMS-HCC) Take 3 tablets (60 mg total) by mouth daily. Take 3 tablets daily. May take take an additional tablet as needed for swelling 300 tablet 3 11/28/2024 ActiveStart: 04-12-2024 End: 27-93-4482srez 4 tablets by mouth once daily in the morningtorsemide (DEMADEX) 20 mg tablet Indications: Chronic heart failure with preserved ejection fraction (CMS-HCC) Take 4 tablets in the AM by mouth daily 360 tablet 04/12/2024 07/07/2024 Discontinued (Therapy completed)Start: 54-46-7261jkuc 4 tablets by mouth once daily in the morningtorsemide (DEMADEX) 20 mg tablet Indications: Chronic heart failure with preserved ejection fraction (CMS-HCC) Take 4 tablets in the AM by mouth daily 03/07/2024 ActiveStart: 11-06-2023 End: 96-33-8131rmqu 4 tablets by mouth in the morning, [...] and Thursday 438 tablet 3 01/21/2024 ActiveStart: 14-91-8636tfkr 2 tablets by mouth once dailytorsemide 40 mg tablet Take 80 mg by mouth daily. 08/29/2023 ActiveStart: 07-26-2023 End: 97-14-3029golufmvhj (DEMADEX) tablet 80 mgStart: 31-74-6485fiht 4 tablets by mouth once daily as [...] EVENING PRN 540 tablet 1 05/29/2023 ActiveStart: 57-13-2712tbdg 4 tablets by mouth in the morning, [...] 20 mg by mouth Daily Active End: 28-73-3025ddty 1 tablet by mouth three times dailytorsemide (DEMADEX) 10 mg tablet Take 1 tablet (10 mg total) by mouth 3 (three) times a day. 12/15/2024 Discontinuedtake 2 tablets by mouth once dailyTorsemide 40 MG 2 tablets Orally Once a day ActivetraZODone hydrochloride 100 mg oral tablet (2 sources)Serotonin Reuptake InhibitorStart: 94-22-7901avyi 100 mg by mouth once daily at bedtimeTrazodone Active 100 MG PO Daily at bedtime June 22, 2018 1:00amStart: 01-18-2018 End: 12-63-4416yrtz 100 mg by mouth once daily at bedtimeTrazodone Discontinued 100 MG PO Daily at bedtime January 18, 2018 12:00am June 08, 2018 11:26amvalsartan 40 mg oral tablet (4 sources)Angiotensin 2 Receptor BlockerStart: 28-29-7065syes 1 tablet by mouth in the morningvalsartan (DIOVAN) 40 mg tablet Indications: Chronic diastolic heart failure (CMS-HCC) , Pulmonary hypertension (CMS-HCC) Take 1 tablet (40 mg total) by mouth in the morning. 30 tablet 11 02/06/2025 Activevitamin b12 1 mg oral tablet (20 sources)Vitamin G99Uyjjz: 62-91-2475ogxm 1 tablet by mouth in the morning cyanocobalamin 1000 MCG tablet Indications: B12 deficiency TAKE 1 TABLET (1,000 MCG TOTAL) BY MOUTHIN THE MORNING 90 tablet 1 04/13/2024 ActiveVitamin D 50 MCG (1999 UT) (1 source)take 1 capsule by mouth once dailyVitamin D 50 MCG (1999 UT) 1 capsule Orally Once a day Activevortioxetine 10 mg oral tablet (20 sources)Start: 97-43-5794gilm 1 tablet by mouth in the morningTRINTELLIX 10 mg tablet Take 1 tablet (10 mg total) by mouth in the morning. 10/03/2024 Active Completed/Discontinued Medications MedicationDrug Class(es)DatesSig (Normalized)Sig (Original)acetaminophen 325 mg / HYDROcodone bitartrate 5 mg oral tablet (15 sources)Opioid AgonistStart: 09-09-2023 End: 19-89-2621DILPKhpbmqu-acetaminophen (NORCO) 5-325 mg per tablet Indications: Closed wedge compression fracture of T6 vertebra with routine healing Take 1 tablet by mouth 2 (two) times a day as needed for pain.Max Daily Amount: 2 tablets 60 tablet 10/01/2023 11/02/2023 Discontinued (Therapy completed)Start: 08-29-2023 End: 52-57-5870GYGVOkwnqiw-acetaminophen (NORCO) 5-325 mg per tablet Indications: Closed [...] \[email or web address]\epic\EPIC_Reference\Orders\Respiratory Care Guidelines\CPG Bronchodilator 2020.pdfStart: 07-25-2023 End: 49-41-9172qrqtnrkjcmb-albuteroL (DUONEB) 0.5 mg-3 mg(2.5 mg base)/3 mL nebulizer solution 3 mLamitriptyline hydrochloride 100 mg oral tablet (9 sources)Tricyclic AntidepressantStart: 06-01-2023 End: 43-47-2813sagv 0.5 tablet by mouth once dailyamitriptyline (ELAVIL) 100 mg tablet Take 0.5 tablets (50 mg total) by mouth nightly. 0 06/01/2023 07/01/2023 Discontinued (Therapy completed)Start: 10-16-2021 End: 94-84-1183mtjq 1 tablet by mouth once dailyamitriptyline (ELAVIL) 100 mg tablet Take 1 tablet (100 mg total) by mouth nightly. 0 10/16/2021 06/01/2023 Discontinuedapixaban 5 mg oral tablet (20 sources)Factor Xa InhibitorStart: 08-31-2023 End: 97-58-1118ctcr 2 tablets by mouth twice daily, then take 1 tablet by mouth twice dailyELIQUIS DVT-PE TREAT 30D START 5 mg (74 tabs) tablets,dose pack tablet TAKE 2 TABLETS (10 MG) BY MOUTH 2 TIMES A DAY FOR 7 DAYS, THEN 1 TABLET 2 TIMES A DAY FOR 21 DAYS 08/31/2023 09/30/2023 DiscontinuedStart: 61-11-0783djvw 2 tablets by mouth twice daily, then take 1 tablet by mouth twice dailyELIQUIS DVT-PE TREAT 30D START 5 mg (74 tabs) tablets,dose pack tablet TAKE 2 TABLETS (10 MG) BY MOUTH 2 TIMES A DAY FOR 7 DAYS, THEN 1 TABLET 2 TIMES A DAY FOR 21 DAYS 08/31/2023 ActiveStart: 08-29-2023 End: 33-96-9556gsbu 2 tablets by mouth twice daily, then take 1 tablet by mouth twice dailyEliquis DVT/PE Starter Pack 5 MG tablet therapy pack TAKE 2 TABLETS (10 MG) BY MOUTH 2 TIMES A DAY FOR 7 DAYS, THEN 1 TABLET 2 TIMES A DAY FOR 21 DAYS 08/31/2023 03/17/2024 Discontinued (Med list cleanup)Start: 08-29-2023 End: 33-70-8314khik 1 tablet by mouth in the morning, [...] Inhibitor, Nonsteroidal Anti-inflammatory Drug Start: 07-26-2023 End: 54-19-8079nrla 81 mg by mouth once daily81 mg, oral, Daily, First dose on 07/26/23 at 0900, Do not crush or chew.brexpiprazole 4 mg oral tablet (1 source)Atypical AntipsychoticStart: 01-07-2018 End: 43-09-2162hboq 1 tablet by mouth once daily in the morningBrexpiprazole (Rexulti) 4 mg tablet Discontinued 4 MG PO Every morning January 07, 2018 12:00amS2017 11:12ambusPIRone hydrochloride 10 mg oral tablet (1 source)Start: 01-18-2018 End: 94-90-7587ozue 20 mg by mouth three times dailyBuspirone Discontinued 20 MG PO Three times daily 180 January 18, 2018 12:00am June 08, 2018 11:26amcefTRIAXone 1000 mg injection (1 source)Cephalosporin AntibacterialStart: 07-25-2023 End: 42-33-5122dibHVZENetk (ROCEPHIN) IVPB 1000 mg/50 mL in iso-osmotic dextrose (20 mg/mL premix)clindamycin 150 mg oral capsule (12 sources)Lincosamide Antibacterial End: 01-04-1545nvyq 1 capsule by mouth three times dailyclindamycin (CLEOCIN) 150 mg capsule Take 1 capsule (150 mg total) by mouth 3 (three) times a day. 0 11/02/2023 Discontinued (Therapy completed)cyclobenzaprine hydrochloride 10 mg oral tablet (20 sources)Muscle RelaxantStart: 12-24-2023 End: 53-18-9734bbdatiuszehqary (FLEXERIL) 10 mg tablet 12/24/2023 07/07/2024 Discontinued (Therapy completed)Start: 09-10-2023 End: 00-40-8670ozzg 1 tablet by mouth twice daily as needed for pain cyclobenzaprine (Fexmid) 7.5 MG tablet Indications: Radiculopathy, lumbosacral region TAKE 1 TABLETBY MOUTH TWICE A DAY NEEDED FOR LOWER BACK PAIN 60 tablet 1 09/10/2023 01/12/2024 Discontinued (Med list cleanup)Start: 42-95-0830ajsm 1 tablet by mouth twice daily as [...] gel (20 sources)Nonsteroidal Anti-inflammatory DrugStart: 11-04-2023 End: 42-27-9992ntzgflnwxt sodium (VOLTAREN) 1 % gel Indications: Fibromyalgia syndrome APPLY 2 G TOPICALLY IN THE MORNING AT AT NOON IN THE EVENING AND BEFORE BEDTIME 100 g 2 11/04/2023 10/07/2024 Discontinued (Patient Stopped On Own) Start: 07-01-2023 End: 89-40-3680viadztmwyw sodium (VOLTAREN) 1 % gel Indications: Fibromyalgia syndrome Apply 2 g topically in the morning and 2 g at noon and 2 g in the evening and 2 g before bedtime. 100 g 2 07/01/2023 ActiveStart: 06-14-2023 End: 72-68-5677kiyj 1 tablet by mouth twice daily as [...] oral capsule (9 sources)Histamine-1 Receptor Antagonist End: 84-77-8245mtcg 1 capsule by mouth every six hours as neededdiphenhydrAMINE (BENADRYL) 50 mg capsule Take 1 capsule (50 mg total) by mouth every 6 (six) hours as needed for itching. 0 07/27/2023 Discontinued (Stop Taking at Discharge)Benadryl Activedoxycycline hyclate 100 mg oral capsule (20 sources)Tetracycline-class DrugStart: 09-24-2023 End: 80-38-5355tajx 1 capsule by mouth in the morning, then take 1 capsule by mouth at bedtimedoxycycline (VIBRAMYCIN) 100 mg capsule Indications: Community acquired pneumonia, unspecified laterality Take 1 capsule (100 mg total) by mouth in the morning and 1 capsule (100 mg total) before bedtime. Do all this for 7 days. 14 capsule 09/24/2023 09/30/2023 Discontinued (Therapy completed) Start: 07-24-2023 End: 39-33-1109qkjaodtxhys (VIBRAMYCIN) 100 mg capsule 08/01/2023 ActiveStart: 05-18-2023 End: 13-83-3356vajk 1 capsule by mouth in the morning, then take 1 capsule by mouth at bedtimedoxycycline (VIBRAMYCIN) 100 mg capsule Take 1 capsule (100 mg total) by mouth in the morning and 1capsule (100 mg total) before bedtime. Do all this for 10 days. 20 capsule 0 05/18/2023 05/28/2023 Active End: 08-87-4421pyygvuuvrgd (Vibramycin) 100 MG capsule Take 100 mg by mouth in the morning and 100 mg before bedtime. Take with at least 8 ounces (large glass) of water, do not lie down for 30 minutes after. 01/12/2024 Discontinued (Med list cleanup)0.4 ml enoxaparin sodium 100 mg/ml prefilled syringe (1 source)Low Molecular Weight HeparinStart: 07-26-2023 End: 17-33-8927riyblf 40 mg by subcutaneous injection once daily40 mg, subcutaneous, Daily, First dose on 07/26/23 at 0600, Look-alike/sound-alike medication - verify indication for use.ferrous sulfate 325 mg oral tablet (12 sources)Start: 01-05-2023 End: 63-12-3123xyqvnpv sulfate 325 (65 FE) mg tablet 1 tablet (325 mg total) in the morning and 1 tablet (325 mg total) in the evening. Take with meals. 0 01/05/2023 07/01/2023 Discontinued (Side effects)ferrous sulfate 325 (65 Fe) MG tablet TAKE 1 TABLET BY MOUTH TWICE A DAY FOR 30 DAYS for 30 Activefurosemide 40 mg oral tablet (5 sources)Loop DiureticStart: 11-07-2024 End: 99-72-4498nsdr 1 tablet by mouth once dailyfurosemide (LASIX) 40 mg tablet Indications: Venous insufficiency of both lower extremities Take 1 tablet (40 mg total) by mouth daily. 30 tablet 2 11/07/2024 11/28/2024 DiscontinuedStart: 10-24-2024 End: 81-96-7508awwm 1 tablet by mouth once dailyfurosemide (LASIX) 40 mg tablet Indications: Venous insufficiency of both lower extremities Take 1 tablet (40 mg total) by mouth daily for 5 days. 5 tablet 10/24/2024 10/29/2024 ActiveStart: 07-25-2023 End: 79-31-5474gtyjiywtfz (LASIX) injection 40 mggabapentin 100 mg oral capsule (20 sources)Anti-epileptic AgentStart: 07-25-2023 End: 55-69-2781fafm 200 mg by mouth three times mmxol733 mg, oral, 3 times daily, First dose on 07/25/23 at 2200, Look-alike/sound-alike medication - verify indication for use.Start: 01-05-2023 End: 92-64-6938xdaf 2 capsules by mouth three times dailygabapentin (Neurontin) 100 MG capsule Indications: Polyneuropathy, unspecified TAKE 2 CAPSULES BY MOUTH 3 TIMES A DAY FOR 30 DAYS 180 capsule 2 08/17/2023 01/12/2024 Discontinued (Med list cleanup)lidocaine 0.05 mg/mg medicated patch (4 sources)Antiarrhythmic, Amide Local AnestheticStart: 08-29-2023 End: 90-38-8783yvelp 1 dose transdermal route every twelve hours in the morning lidocaine (LIDODERM) 5 % Place 1 patch on the skin in the morning. Remove & Discard patch within 12 hours or as directed by MD. 5 patch 08/29/2023 09/24/2023 Discontinued (Therapy completed)lurasidone hydrochloride 40 mg oral tablet (3 sources)Atypical AntipsychoticStart: 01-18-2018 End: 82-23-9789qbdr 1 tablet by mouth once dailyLurasidone (Latuda) 40 mg tablet Discontinued 60 MG PO Daily with supper June 08, 2018 11:26am June 08, 2018 12:03pmStart: 01-07-2018 End: 71-99-6997tqwt 1 tablet by mouth once dailyLurasidone (Latuda) 20 mg tablet Discontinued 20 MG PO Daily with supper January 07, 2018 12:00am January 18, 2018 11:12am1 ml methylPREDNISolone acetate 40 mg/ml injection (9 sources)CorticosteroidStart: 01-26-2024 End: 16-42-4798diugamRNMGPJQijtqg acetate (DEPO-Medrol) injection 40 mgStart: 01-26-2024 End: 30-59-699117 mg, Intra-articular, Once PRN Procedure, Starting on Thu01/26/24 at 1350, For 1 doseStart: 12-29-2023 End: 94-34-8841iebhsnRFGMUWXmerbi acetate (DEPO-Medrol) injection 40 mgStart: 12-29-2023 End: 53-27-547881 mg, Injection, Once PRN Procedure, Starting on Thu12/29/23 at 1458, For 1 doseStart: 07-25-2023 End: 38-17-054545 mg, intravenous, Every 12 hours scheduled, First dose on 07/25/23 at 2115, May alter blood glucose or insulin requirements. Look-alike/sound-alike medication - verify indication for use.12 hr orphenadrine citrate 100 mg extended release oral tablet (3 sources)Muscle RelaxantStart: 10-20-2023 End: 91-82-5809qqlu 1 tablet by mouth twice daily as needed for painorphenadrine (NORFLEX) 100 mg 12 hr tablet Take 1 tablet (100 mg total) by mouth 2 (two) times a day as needed for muscle spasms or pain. 10 tablet 10/20/2023 11/02/2023 Discontinued (Formulary change)oxyCODONE hydrochloride 5 mg oral tablet (8 sources)Opioid AgonistStart: 08-09-2023 End: 21-05-2592uumc 1 tablet by mouth every eight hours as needed for pain oxyCODONE (ROXICODONE) 5 mg immediate release tablet Indications: Acute right hip pain Take 1 tablet (5 mg total) by mouth every 8 (eight) hours as needed for pain for up to 2 days. Max Daily Amount:15 mg 6 tablet 08/09/2023 08/11/2023 End: 05-26-7254lyeBGAWPB (Oxy-IR) 5 MG immediate release capsule Take 5 mg by mouth 01/12/2024 Discontinued (Med list cleanup)prazosin 1 mg oral capsule (1 source)alpha-Adrenergic BlockerStart: 01-18-2018 End: 95-22-1797uaxb 2 mg by mouth twice dailyPrazosin Discontinued 2 MG PO Twice daily 120 January 18, 2018 12:00am June 08, 2018 11:26ampredniSONE 20 mg oral tablet (7 sources)Start: 09-24-2023 End: 05-57-0738tkwp 1 tablet by mouth in the morningpredniSONE (DELTASONE) 20 mg tablet Indications: Community acquired pneumonia, unspecified laterality Take 1 tablet (20 mg total) by mouth in the morning for 7 days. 7 tablet 09/24/2023 09/30/2023 Discontinued (Therapy completed)Start: 19-42-8089posr 2 tablets by mouth once daily at breakfastpredniSONE (DELTASONE) 20 mg tablet Take 2 tablets (40 mg total) by mouth daily with breakfast. 10 tablet 07/28/2023 ActiveStart: 07-28-2023 End: 88-67-5414dldrxqUGCS (DELTASONE) tablet 40 mgrisperiDONE 1 mg oral tablet (1 source)Atypical AntipsychoticStart: 06-08-2018 End: 51-72-7878htpc 1 mg by mouth once dailyRisperidone Discontinued 1 MG PO Daily June 08, 2018 1:00am June 22, 2018 9:23dw124 ml sodium chloride 9 mg/ml prefilled syringe (4 sources)Start: 07-25-2023 End: mL, intravenous, Every 12 hours scheduled, First dose on 07/25/23 at 2115Start: 07-25-2023 End: mL, intravenous, As needed, line care, before and after each intermittent use, Starting on 07/25/23 at art: 07-25-2023 End: 72-31-9180badx 20 mL intravenously every hour as hukjmg67 mL/hr, intravenous, Continuous PRN, to maintain patency of lines, Starting on 07/25/23 at art: 07-25-2023 End: 71-53-0611tqil 25 mL intravenously every hour as todupq92 mL, intravenous, at 100 mL/hr, Administer over 15 Minutes, As needed, line care, line care after IVPB administration, Starting on 07/25/23 at [id number] hr venlafaxine 75 mg extended release oral capsule (20 sources)Serotonin and Norepinephrine Reuptake InhibitorStart: 03-14-2023 End: 03-29-1288xrip 1 capsule by mouth once daily in the morningvenlafaxine XR (EFFEXOR XR) 75 mg 24 hr capsule TAKE 1 CAPSULE BY MOUTH EVERY DAY IN THE MORNING 03/14/2023 ActiveStart: 03-14-2023 End: 62-75-8137apcumealgrh XR (EFFEXOR XR) 75 mg 24 hr capsule 03/14/2023 10/07/2024 Discontinued (Discontinued byanother clinician)Start: 10-17-2021 End: 74-34-5729gtzh 1 capsule by mouth every twenty-four hours [...] [Diaphragmatic hernia without obstruction or gangrene]Onset: 11-07-2024 18-18-4068HvbdkartQhdmisubb pain (4 sources)Right inguinal pain; Translations: [Right lower quadrant pain]Onset: 705053-95-3045FlvmfclqUftks and unspecified renal failure (5 sources)Acute injury of kidney; Translations: [Acute kidney failure, unspecified]Onset: 817241-93-2704BspmunvcJjowt myocardial infarction (20 sources)Myocardial infarction; Translations: [Non-ST elevation (NSTEMI) myocardial infarction]Onset: 043721-13-9172IuybmarCghtzdv disorders (20 sources)Posttraumatic stress disorder; Translations: [Post-traumatic stress disorder, unspecified]Onset: 08-28-2015 Resolved: 677286-63-2087VhybeucAgqkixvxa and vision defects (20 sources)Visual impairment; Translations: [Unspecified visual loss]Onset: 219245-50-4397OputaakDsynzua kidney disease (20 sources)Chronic kidney disease stage 3A ; Translations: [Stage 3a chronic kidney disease ([facility])]Onset: 07-07-2024 Resolved: 954306-62-8546NfnlofcZjqbjqw kidney disease (3 sources)Chronic kidney disease; Translations: [Chronic kidney disease, stage 3a]Onset: 09-07-0712Zhkzuui obstructive pulmonary disease and bronchiectasis (20 sources)Chronic obstructive lung disease; Translations: [Chronic obstructive pulmonary disease, unspecified]Onset: 279501-50-7228SgthfeaWvllfrpgzh associated with dizziness or vertigo (1 source)DizzinessOnset: 52-62-4708WkqjjhsiLrbmuhzanv heart failure; nonhypertensive (20 sources)Chronic heart failure co-occurrent with normal ejection fraction; Translations: [Chronic diastolic (congestive) heart failure]Onset: 02-27-2022 Resolved: 742846-02-9412BpiadqvXgzrxepc atherosclerosis and other heart disease (20 sources)Coronary arteriosclerosis; Translations: [Atherosclerotic heart disease of [place] coronary artery without angina pectoris]Onset: 05-08-2013 Resolved: 675949-07-1701TmrbbbuGonqfysp atherosclerosis and other heart disease (9 sources)Aortocoronary bypass graft present; Translations: [Presence of aortocoronary bypass graft]Onset: 04-29-2023 Resolved: 326877-15-6482UfjqsqtlEnvboetdso and other anemia (9 sources)Microcytic anemia; Translations: [Iron deficiency anemia, unspecified]Onset: 798022-62-2878MetkiekmBnlwzakfea and other anemia (2 sources)Iron deficiency anemia, unspecified; Translations: [Iron deficiency anemia, unspecified]Onset: 98-60-5556BkgdkqjhOggzfilf mellitus with complications (2 sources)Type 2 diabetes mellitus; Translations: [Type 2 diabetes mellitus with diabetic chronic kidney disease]Onset: hronic Esophageal disorders (20 sources)Gastroesophageal reflux disease; Translations: [Gastro-esophageal reflux disease without esophagitis]Onset: 209061-69-7033IdmmovzUjkfxelfx hypertension (20 sources)Essential hypertension; Translations: [Essential (primary) hypertension]Onset: 213070-52-4038DrrttfeBlqinsnw; including migraine (13 sources)Migraine; Translations: [Migraine, unspecified, not intractable, without status migrainosus]Onset: 259137-35-5623ZvlmqvvMpobq valve disorders (20 sources)Tricuspid incompetence, non-rheumatic ; Translations: [Nonrheumatic tricuspid (valve) insufficiency]Onset: 113910-82-8758EimdkbgFsgyufq and fatigue (20 sources)Asthenia; Translations: [Weakness]Onset: 05-28-2023 Resolved: 691826-63-4344HtwnlosnKpzw disorders (20 sources)Bipolar II disorder, most recent episode major depressive; Translations: [Bipolar II disorder]Onset: 748690-83-3975HexzrzvVzkiib and vomiting (5 sources)Nausea and vomiting; Translations: [Nausea with vomiting, unspecified]Onset: 529215-57-9364FskdnvotRahyidvmjnr deficiencies (13 sources)Vitamin D deficiency; Translations: [Vitamin D deficiency, unspecified]Onset: 583627-15-7173HywigqxGlztmgjizlxbar (20 sources)Primary osteoarthritis, left shoulder; Translations: [Arthropathy, unspecified, shoulder region]Onset: 516374-21-9718XiuqmpeDnsxs aftercare (1 source)Encounter for therapeutic drug level monitoring; Translations: [Encounter for therapeutic drug level monitoring]Onset: 18-55-1394QpxzxqznUorxk aftercare (1 source)Other assisted (current) drug therapy; Translations: [Other assisted (current) drug therapy]Onset: 26-31-3132GtzxlixzEmppw circulatory disease (1 source)Orthostatic hypotension; Translations: [Orthostatic hypotension] 02-57-0698XndlqqmeRjdsf connective tissue disease (1 source)Trochanteric bursitis, left hipEpisodicOther connective tissue disease (6 sources)Myofascial pain syndrome; Translations: [Myalgia, unspecified site] 82-39-3908TessprgrKnbab connective tissue disease (3 sources)Fibromyalgia; Translations: [Fibromyalgia]28-43-0409DidlmxfdStqgh connective tissue disease (2 sources)Tendonitis of right patellar tendon; Translations: [Patellar tendinitis, right knee]21-40-4433LbgulbpoTgkoq connective tissue disease (2 sources)Patellar tendinitis, right knee; Translations: [Patellar tendinitis, right knee]Onset: 14-04-8154TatvnclhMropf diseases of veins and lymphatics (4 sources)Venous insufficiency of leg; Translations: [Venous insufficiency (chronic) (peripheral)]97-08-3313RyrkiryxTqgzn diseases of veins and lymphatics (1 source)Venous insufficiency (chronic) (peripheral); Translations: [Venous insufficiency (chronic) (peripheral)]Onset: 30-82-9073AwrqocojKzeje liver diseases (20 sources)Disease of liver; Translations: [Liver disease, unspecified]Onset: 535197-37-7767YsgsdnrFefdm lower respiratory disease (1 source)Acute respiratory distressOnset: 15-83-2290RvduvvrrFetri lower respiratory disease (1 source)Shortness of breath; Translations: [Shortness of breath]Onset: 18-94-3496IflohwftJtidb lower respiratory disease (1 source)Dyspnea, unspecified; Translations: [Dyspnea, unspecified]Onset: 72-19-7485ErajisdqUowya nervous system disorders (2 sources)Polyneuropathy, unspecified; Translations: [Polyneuropathy, unspecified]Onset: 79-89-6791JgftltnKxyag non-traumatic joint disorders (2 sources)Pain in left shoulder; Translations: [Pain in joint, shoulder region] 22-66-1610TsqwwqeoFxnlf nutritional; endocrine; and metabolic disorders (13 sources)Obesity caused by energy imbalance; Translations: [Morbid (severe) obesity due to excess calories]Onset: 410763-64-0976ZmchelcUdxzw nutritional; endocrine; and metabolic disorders (20 sources)Body mass index 30+ - obesity; Translations: [Obesity, unspecified] Onset: 01-30-2020 Resolved: 806680-66-3210IorbxlvApcfi nutritional; endocrine; and metabolic disorders (1 source)Body mass index (BMI) 40.0-44.9, adult; Translations: [Body mass index (BMI) 40.0-44.9, adult]Onset: 84-42-1880VxdqffvQflqmqkkrjs disorders (13 sources)Borderline personality disorder; Translations: [Borderline personality disorder]Onset: 669151-94-0026ZgpvmlpSmbtjzvjy (except that caused by tuberculosis or sexually transmitted disease) (20 sources)Pneumonia; Translations: [Pneumonia, unspecified organism]Onset: 04-15-2023 Resolved: 774952-22-0924YvfnfjrjPlxvvyvdq heart disease (20 sources)Pulmonary hypertension; Translations: [Pulmonary hypertension, unspecified]Onset: 073159-75-8699MgrvugoPljyqmvs codes; unclassified (20 sources)Obstructive sleep apnea syndrome; Translations: [Obstructive sleep apnea (adult) (pediatric)]Onset: 506950-75-9577PnlzrblHvxgcrsc codes; unclassified (1 source)Sleep related hypoxemia; Translations: [Sleep related hypoventilation in conditions classified elsewhere]04-56-9787NyxtgweGrhfxwml codes; unclassified (1 source)Obstructive sleep apnea (adult) (pediatric); Translations: [Obstructive sleep apnea (adult) (pediatric)]Onset: 98-29-2504OqpubnmIpkzlmvl codes; unclassified (1 source)EdemaOnset: 29-77-8874LqfcbnhrUjqmdccocjc failure; insufficiency; arrest (adult) (20 sources)Chronic respiratory failure; Translations: [Chronic respiratory failure with hypoxia]Onset: 373796-64-7371EifzophUcdihgmorjk; intervertebral disc disorders; other back problems (20 sources)Bilateral inflammation of sacroiliac joint; Translations: [Sacroiliitis, not elsewhere classified]Onset: 07-07-2024 Resolved: 16-09-0408QjrcyrrZrjfbgwpy-related disorders (20 sources)Cannabis abuse; Translations: [Cannabis abuse, uncomplicated]Onset: 10-16-2020 Resolved: 179907-89-9905BcyoqdmQddsymcjuhd injury; contusion (1 source)Contusion of lower leg; Translations: [Contusion of unspecified lower leg, initial encounter]17-97-5329TwblfejfCkwyziocjvat (1 source)Low back pain, unspecified; Translations: [Low back pain, unspecified] Onset: 84-63-4572Rjgcscdzvxol (1 source)Chronic heart failure co-occurrent with normal ejection fraction 47-15-6557Ccgbyvhpaele (2 sources)Autogenerated ProblemOnset: 169075-40-2628Mlfgrvmsasxf (1 source)Controlled SubstanceOnset: 45-62-3746Fgjpnivysrzc (1 source)ErrorOnset: 51-80-5781Sfrpmmrgmipj (1 source)illOnset: 12-03-2024 Past or Other Problems Problem ClassificationProblemDateDocumented DateEpisodic/ChronicCardiac dysrhythmias (6 sources)Ventricular tachycardia; Translations: [Ventricular tachycardia] Onset: 09-20-2024 Resolved: 630928-65-3779KoarzjfPuzqbqdznceay of surgical procedures or medical care (6 sources)Non-healing surgical wound; Translations: [Other complications of procedures, not elsewhere classified, initial encounter]Onset: 01-14-2023 38-84-4846QmbdojrmWzzipmjlwv and other anemia (19 sources)Iron deficiency anemia; Translations: [Iron deficiency anemia, unspecified]Onset: 078469-44-1666KoimhcooIodwjpcz, dementia, and amnestic and other cognitive disorders (20 sources)Dementia; Translations: [Unspecified dementia, mild, without behavioral disturbance, psychotic disturbance, mood disturbance, and anxiety] Onset: 10-21-2022 Resolved: 789049-70-7945AymbdsaHnocedqr mellitus without complication (20 sources)Hyperglycemia; Translations: [Hyperglycemia, unspecified]Onset: 711603-67-5614CsglasskZcsdyvbjw of lipid metabolism (7 sources)Hyperlipidemia; Translations: [Hyperlipidemia, unspecified]Onset: 04-29-2023 Resolved: 826859-81-1014RplvdyoCjxte and electrolyte disorders (20 sources)Hypokalemia; Translations: [Hypokalemia]Onset: 08-14-2020 Resolved: 564553-74-0834UczoqwbnFihesmeg; including migraine (17 sources)Chronic headache disorder; Translations: [Chronic headache]Onset: 117076-84-9963CowfkiooKmam disorders (20 sources)Mood disordersOnset: 01-04-2024 Resolved: 039326-77-6813Vmyqkyzukcp deficiencies (5 sources)Cobalamin deficiency; Translations: [Deficiency of other specified B group vitamins]Onset: 201769-47-2714OzaljnmnZcxsi circulatory disease (7 sources)Low blood pressure; Translations: [Other hypotension]Onset: 08-14-2020 Resolved: 077165-09-6132ZgehgwsjQxvnt connective tissue disease (13 sources)Muscle weakness; Translations: [Muscle weakness (generalized)]Onset: 742227-19-4697BvqhloigPzrdm diseases of kidney and ureters (6 sources)Acute renal insufficiency; Translations: [Disorder of kidney and ureter, unspecified]Onset: 692656-03-8114XyhxdgrsIuazc fractures (20 sources)Fracture of sixth thoracic vertebra; Translations: [Wedge compression fracture of T5-T6 vertebra, subsequent encounter for fracture with routine healing]Onset: 327862-68-4520XvrlzrriXuzwc fractures (2 sources)Compression fracture of thoracic spine; Translations: [Wedge compression fracture of T7-T8 vertebra, subsequent encounter for fracture with routine healing]63-28-2585QwbfwigpEpqwe inflammatory condition of skin (8 sources)Psoriasis; Translations: [Psoriasis, unspecified]Onset: 05-02-2023 Resolved: 235708-34-4889JxlfhazHpscu injuries and conditions due to external causes (6 sources)Injury of breast; Translations: [Unspecified injury of thorax, initial encounter]Onset: 245509-63-5467VdbaeyjrWthoh lower respiratory disease (8 sources)Solitary nodule of lung; Translations: [Solitary pulmonary nodule] Onset: 04-29-2023 Resolved: 968600-77-9423ZooojawpZmbfe lower respiratory disease (20 sources)Dyspnea; Translations: [Shortness of breath]Onset: 11-05-2021 Resolved: 529720-10-8496MtxixkurZmiwn lower respiratory disease (1 source)Hypoxia; Translations: [Hypoxemia]13-39-0502CmgfaznsDgqoe nervous system disorders (8 sources)Difficulty walking; Translations: [Difficulty in walking, not elsewhere classified]Onset: 04-28-2023 Resolved: 681729-52-6374JfqaeumIcovf nervous system disorders (15 sources)Polyneuropathy; Translations: [Polyneuropathy, unspecified]Onset: 04-29-2023 Resolved: 260069-06-2619DufpcwgRmiyt nervous system disorders (1 source)Ataxia, unspecified; Translations: [Ataxia, unspecified]Onset: 72-62-3246FajcypjpWtzqg nutritional; endocrine; and metabolic disorders (20 sources)Body mass index 40+ - severely obese; Translations: [Body mass index (BMI) 40.0-44.9, adult]Onset: 06-01-2023 Resolved: 731504-07-7906OzmnayhNnfyi nutritional; endocrine; and metabolic disorders (20 sources)H/O: raised blood lipids; Translations: [Personal history of other endocrine, nutritional and metabolic disease]Onset: 237052-28-3583Ghwxelpb Pathological fracture (2 sources)Pathological fracture of vertebra due to osteoporosis; Translations: [Other osteoporosis with current pathological fracture, vertebra(e), subsequent encounter for fracture with routine healing]30-34-6086TugqltqiLoquvggmh heart disease (20 sources)Acute pulmonary embolism; Translations: [Other pulmonary embolism without acute cor pulmonale]Onset: 08-28-2023 Resolved: 517653-94-5313NqeanpheSoycoebm codes; unclassified (8 sources)Dependence on enabling machine or device; Translations: [Dependence on other enabling machines and devices]Onset: 04-29-2023 Resolved: 791949-50-0522ApegokyXhgikhou codes; unclassified (20 sources)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; Translations: [Dependence on other enabling machines and devices]Onset: 10-21-2022 Resolved: 451037-63-3347UpbebdkUcnphcda codes; unclassified (1 source)Viral syndrome; Translations: [Other general symptoms and signs] 71-83-7406KtulrtivQwaitflipts failure; insufficiency; arrest (adult) (20 sources)Acute respiratory failure, unspecified whether with hypoxia or hypercapnia; Translations: [Acute hypoxemic and hypercapnic respiratory failure] Onset: 04-14-2023 Resolved: 533175-72-8908FqejvymyKvlaaymbp and history of mental health and substance abuse codes (20 sources)Ex-smoker; Translations: [Personal history of nicotine dependence] Onset: 09-26-2022 Resolved: 145859-97-6749XfmnqciwIoefe and face fractures (20 sources)Fracture of tooth ; Translations: [Fracture of tooth (traumatic), initial encounter for closed fracture]Onset: [id number] Spondylosis; intervertebral disc disorders; other back problems (20 sources)Spinal stenosis, lumbar region without neurogenic claudication; Translations: [Low back pain]Onset: [id number]knwg (1 source)Bilateral low back pain, unspecified chronicity, unspecified whether sciatica present M54.50Viral infection (20 sources)Disease caused by 2019-nCoV; Translations: [COVID-19]Onset: 04-15-2023 Resolved: [id number] Results Test NameValueInterpretationReference RangeFacilityCBC WITH AUTO DIFFERENTIALon [id number] ABSOLUTE COUNT (10*3/UL) BY AUTOMATED COUNT0.1 10*3/uLNormal 0.0-0.2[facility] on above:Result Comment: This is an appended report. These results have been appended to a previously preliminary verified report.Performed By: #### CMP #### [facility] ([address] [place] [address] VIRBASOPHILS RELATIVE PERCENT BY AUTOMATED COUNT1.1 %Normal [facility] on above:Result Comment: This is an appended report. These results have been appended to a previously preliminary verified report.Performed By: #### CMP #### [address] [place] [address] VIRCELLAVISION ANISOCYTOSIS IN BLOOD BY LIGHT MICROSCOPY2+ NormalProTexas Health Frisco on above:Result Comment: This is an appended report. These results have been appended to a previously preliminary verified report.Performed By: #### CMP #### [facility] ([address] [place] [address] VIRCELLAVISION DIFFERENTIAL TYPEAUTOMATED DIFFERENTIALNormal [facility] on above:Result Comment: This is an appended report. These results have been appended to a previously preliminary verified report.Performed By: #### CMP #### [facility] ([address] [place] [address] VIRCELLAVISION ELLIPTOCYTES IN BLOOD BY LIGHT MICROSCOPY1+ NormalProTexas Health Frisco on above:Result Comment: This is an appended report. These results have been appended to a previously preliminary verified report.Performed By: #### CMP #### [address] [place] [address] VIRCELLAVISION HYPOCHROMIA IN BLOOD BY LIGHT MICROSCOPY1+ NormalProMedica Memorial Hospital on above:Result Comment: This is an appended report. These results have been appended to a previously preliminary verified report.Performed By: #### CMP #### [facility] ([address] [address] VIRCELLAVISION TARGET CELLS IN BLOOD BY LIGHT MICROSCOPY1+ NormalProMedica Memorial Hospital on above:Result Comment: This is an appended report. These results have been appended to a previously preliminary verified report.Performed By: #### CMP #### [facility] ([address] [address] VIREosinophils (Bld) [#/Vol]0.2 10*3/uLNormal0.0-0.4[facility] on above:Result Comment: This is an appended report. These results have been appended to a previously preliminary verified report. Performed By: #### CMP #### [address] [address] VIREOSINOPHILS RELATIVE PERCENT BY AUTOMATED COUNT1.4 %Normal [facility] on above:Result Comment: This is an appended report. These results have been appended to a previously preliminary verified report.Performed By: #### CMP #### [facility] ([address] [address] VIRErythrocyte distribution width (RBC) [Ratio]24.9 %High 11.5-15[facility]Comm[facility] on above:Performed By: #### CMP #### [address] [address] VIRHematocrit (Bld) [Volume fraction]35.1 %Cjlmkb00-70 [facility] on above:Performed By: #### CMP #### [facility] ([address] [address] VIRHemoglobin (Bld) [Mass/Vol]10.7 g/dLLow11.7-15.5P[facility] [place] on above:Performed By: #### CMP #### [facility] ([address] [address] VIRLYMPHOCYTES ABSOLUTE COUNT (10*3/UL) BY AUTOMATED COUNT2.2 10*3/uLNormal1.0-3.5P[facility] [place] on above:Result Comment: This is an appended report. These results have been appended to a previously preliminary verified report.Performed By: #### CMP #### [facility] ([address] [address] VIRLYMPHOCYTES RELATIVE PERCENT BY AUTOMATED COUNT19.1 %Normal [facility] on above:Result Comment: This is an appended report. These results have been appended to a previously preliminary verified report.Performed By: #### CMP #### [facility] ([address] [address] VIRH (RBC) [Entitic mass]20.8 dlHtv52-84WvbTjqcpvPeterson Regional Medical CenterComment on above:Performed By: #### CMP #### [facility] ([address] [address] VIRMCHC (RBC) [Mass/Vol]30.5 g/qTPai79-18YcqZjqfzgHolzer Health SystemCommclaren [place]land on above:Performed By: #### CMP #### [facility] ([address] [address] VIRV (RBC) [Entitic vol]68 vCNyg36-938GczGjxaliPeterson Regional Medical CenterComment on above:Performed By: #### CMP #### [facility] ([address] [address] VIRMONOCYTES ABSOLUTE COUNT (10*3/UL) BY AUTOMATED COUNT0.7 10*3/uLNormal0.0-0.9[facility] on above:Result Comment: This is an appended report. These results have been appended to a previously preliminary verified report.Performed By: #### CMP #### [facility] ([address] [address] VIRMONOCYTES RELATIVE PERCENT BY AUTOMATED COUNT6.3 %Normal [facility] on above:Result Comment: This is an appended report. These results have been appended to a previously preliminary verified report.Performed By: #### CMP #### [facility] ([address] [address] VIRNEUTROPHILS ABSOLUTE COUNT BY AUTOMATED COUNT8.2 10*3/uL High1.5-6.6[facility] on above:Result Comment: This is an appended report. These results have been appended to a previously preliminary verified report.Performed By: #### CMP #### [address] [address] VIRNEUTROPHILS RELATIVE PERCENT BY AUTOMATED COUNT72.1 %Normal [facility] SystemCommclaren [facility]land on above:Result Comment: This is an appended report. These results have been appended to a previously preliminary verified report.Performed By: #### CMP #### [facility] ([address] [address] VIRPlatelet mean volume (Bld) [Entitic vol]8.4 fLNormal7-12 [facility] SystemCommclaren [facility] on above:Performed By: #### CMP #### [facility] ([address] [address] VIRPlatelets (Bld) [#/Vol]354 10*3/lBFjjqqw578-043NptXvrqfz [facility] HospitalCommclaren [facility] on above:Performed By: #### CMP #### [facility] ([address] [address] VIRRBC COUNT5.16 X10E12/LNormal3.8-5.2[facility] UclaComment on above:Performed By: #### CMP #### [facility] ([place] [address] [place] [address] VIRWBC (Bld) [#/Vol]11.4 10*3/uLHigh4-11ProPeterson Regional Medical CenterComment on above:Performed By: #### CMP #### [facility] ([facility]) [facility] [place] [address] VIRCOMPREHENSIVE METABOLIC PANELon 06-99-1501Nobhjgc [Mass/Vol]4.1 g/dLNormal3.2-5.3PKettering Health Washington TownshipComment on above: Performed By: #### CMP #### [facility] ([place] [address] [place] [address] VIRALP [Catalytic activity/Vol]82 U/KQfxmgo95-819NoiDkzktyPeterson Regional Medical CenterComment on above:Performed By: #### CMP #### [facility] ([place] [address] [place] [address] VIRALT [Catalytic activity/Vol]22 U/LNormal<=31PKettering Health Washington TownshipComment on above:Performed By: #### CMP #### [facility] ([place] [address] [place] [address] VIRAnion gap [Moles/Vol]14 mmol/LNormal5-15ProPeterson Regional Medical CenterComment on above:Performed By: #### CMP #### [facility] ([place] [address] [place] [address] VIRAST [Catalytic activity/Vol]21 U/LNormal<=41ProPeterson Regional Medical CenterComment on above:Performed By: #### CMP #### [facility] ([place] [address] [place] [address] VIRBilirubin [Mass/Vol]0.4 mg/dLNormal0.3-1.2Pro[facility] Colony HospitalComment on above:Performed By: #### CMP #### [facility] ([address] [place] [address] VIRCalcium [Mass/Vol]9.2 mg/dLNormal8.5-10.5PKettering Health Washington TownshipComment on above:Performed By: #### CMP #### [facility] ([address] [place] [address] VIRChloride [Moles/Vol]96 mmol/CPdb79-411BymBsnoffPeterson Regional Medical CenterComment on above:Performed By: #### CMP #### [address] [address] VIRCO2 [Moles/Vol]29 mmol/WWkxpnl82-96VyrUxhbrqKettering Health Washington TownshipComment on above:Performed By: #### CMP #### [address] [address] VIRCreatinine [Mass/Vol]1.53 mg/dLHigh0.40-1.00ProPeterson Regional Medical CenterComment on above:Result Comment: METHOD TRACEABLE TO IDMS STANDARDPerformed By: #### CMP #### [facility] ([address] [address] VIRGFR/1.73 sq M.predicted among non-blacks MDRD (S/P/Bld) [Vol rate/Area]38 mL/min/{1.73_m2}Low>=60ProPeterson Regional Medical CenterComment on above:Result Comment: eGFR not reported due to non-numeric value for Creatinine. Reported eGFR is based on the CKD-EPI 2021 equation that does not use a race coefficient.Performed By: #### CMP #### [facility] ([address] [address] VIRGlucose [Mass/Vol]103 mg/xRDxxx52-36JadKvyuwtPeterson Regional Medical CenterComment on above:Performed By: #### CMP #### [facility] ([facility]) [address] [place] [address] [place] [address] VIRPotassium [Moles/Vol]3.4 mmol/LLow3.5-5.0ProPeterson Regional Medical CenterComment on above:Performed By: #### CMP #### [facility] ([address] [place] [address] VIRProtein [Mass/Vol]7.6 g/dLNormal6.0-8.0ProPeterson Regional Medical CenterComment on above:Performed By: #### CMP #### [facility] ([address] [place] [address] VIRSodium [Moles/Vol]139 mmol/PXlximj725-279OgpSxaecr [facility] HospitalComment on above:Performed By: #### CMP #### [facility] ([address] [place] [address] VIRUrea nitrogen [Mass/Vol]28 mg/dLHigh5-27ProPeterson Regional Medical CenterComment on above:Performed By: #### CMP #### [facility] ([address] [place] [address] VIRCT ABDOMEN AND PELVIS W CONTon 77-80-0044VQ ABDOMEN AND PELVIS W CONTCT ABDOMEN AND [...] 3:54 PMNormalProPeterson Regional Medical CenterLACTATE W/ REFLEXon 64-98-7544XNMUQXY W/REFLEX0.9 mmol/LNormal0.4-2.0 [facility] SystemCommclaren oakland on above:Order Comment: Result did not trigger repeat Lactate,re-order if needed.Performed By: #### CMP #### [address] [address] VIRLIPASEon 64-04-2168Nfhoit [Catalytic activity/Vol]40 U/L Mjfgxi94-90ZdlPwngvsHolzer Health SystemCommclaren oakland on above:Performed By: #### CMP #### [facility] ([address] [address] VIRMAGNESIUMon 54-89-1421Iuwvcuuwe [Mass/Vol]2.3 mg/dLNormal 1.8-2.6[facility] SystemCommclaren oakland on above:Performed By: #### CMP #### [address] [address] VIRPOCT NURSING URINE MACROSCOPIC UAon 64-22-1249YVQBYIAUL JYOTI NegativeNormalNegativeProMedica Colony HospitalComment on above:Performed By: #### CMP #### [facility] ([address] [address] VIRBLOOD/HGB NURTraceAbnormalNegativeHolzer Health SystemComment on above:Performed By: #### CMP #### [facility] ([address] [address] VIRGLUCOSE INC490 mg/dLAbnormalNegativeHolzer Health SystemComment on above:Performed By: #### CMP #### [facility] ([address] [address] VIRKETONES NURNegativeNormalNegToledo Hospital Comment on above:Performed By: #### CMP #### [facility] ([address] [address] VIRLEUKOCYTE ESTERASE NURNegativeNormalNegativeHolzer Health SystemComment on above:Performed By: #### CMP #### [facility] ([address] [address] VIRNITRITE NURNegativeNormalNegToledo Hospital Comment on above:Performed By: #### CMP #### [facility] ([address] [address] VIRPH NUR5.9Ougtch6.0, 6.0, 6.5, 7.0, 7.5, 8.0, 8.5, 5.5 [facility] Health SystemComment on above:Performed By: #### CMP #### [facility] ([address] [place] [address] VIRPROTEIN NURNegativeNonovant health ballantyne medical centerNegativeHolzer Health System Comment on above:Performed By: #### CMP #### [facility] ([address] [place] [address] VIRSPECIFIC GRAVITY NUR1.659Beeffi8.010, 1.015, 1.020, 1.025 [facility] Health SystemComment on above:Performed By: #### CMP #### [facility] ([address] [place] [address] VIRUROBILINOGEN NUR0.2 E.U./dLNormalHolzer Health System Comment on above:Performed By: #### CMP #### [facility] ([address] [place] [address] VIRBASIC METABOLIC PANELon 09-16-3519Arvlm gap [Moles/Vol]9 mmol/LNormal5-15[facility] Health SystemComment on above:Performed By: #### CMP #### [address] [place] [address] VIRCalcium [Mass/Vol]9.6 mg/dLNormal8.5-10.5PKettering Health Washington TownshipComment on above:Performed By: #### CMP #### [address] [place] [address] VIRChloride [Moles/Vol]96 mmol/XPhv53-789HocHctcrhHolzer Health SystemComment on above:Performed By: #### CMP #### [facility] ([address] [place] [address] VIRCO2 [Moles/Vol]35 mmol/EIeax01-96XvqXuttczKettering Health Washington Township Comment on above:Performed By: #### CMP #### [address] [place] [address] VIRCreatinine [Mass/Vol]1.17 mg/dLHigh0.40-1.00Hol[facility] Health SystemComment on above:Result Comment: METHOD TRACEABLE TO IDMS STANDARDPerformed By: #### CMP #### [facility] [place] [place] [address] VIRGFR/1.73 sq M.predicted among non-blacks MDRD (S/P/Bld) [Vol rate/Area]53 mL/min/{1.73_m2}Low>=60ProPeterson Regional Medical CenterComment on above:Result Comment: Reported eGFR is based on the CKD-EPI 2020 equation that does not use a race coefficient.Performed By: #### CMP #### [facility] ([address] [place] [address] VIRGlucose [Mass/Vol]101 mg/nFObef48-84QtcSgxzjgPeterson Regional Medical CenterComment on above:Performed By: #### CMP #### [address] [place] [address] VIRPotassium [Moles/Vol]3.3 mmol/LLow3.5-5.0ProPeterson Regional Medical CenterComment on above:Performed By: #### CMP #### [facility] ([address] [place] [address] VIRSodium [Moles/Vol]140 mmol/EXiwvly620-831JjvQbyeae [facility] HospitalComment on above:Performed By: #### CMP #### [address] [place] [address] VIRUrea nitrogen [Mass/Vol]16 mg/dLNormal5-27ProPeterson Regional Medical CenterComment on above:Performed By: #### CMP #### [address] [place] [address] VIRBASIC METABOLIC PANELon 28-02-9330Ugmtw gap [Moles/Vol]12 mmol/LNormal5-15ProPeterson Regional Medical CenterComment on above:Performed By: #### LACTS #### [facility] ([address] [place] [address] VIRCalcium [Mass/Vol]9.2 mg/dLNormal8.5-10.5PKettering Health Washington TownshipComment on above:Performed By: #### LACTS #### [facility] ([address] [place] [address] VIRChloride [Moles/Vol]97 mmol/LQru26-178AldSovcibPeterson Regional Medical CenterComment on above:Performed By: #### LACTS #### [facility] ([address] [address] VIRCO2 [Moles/Vol]29 mmol/JZchtte90-24LoaYaicpbKettering Health Washington TownshipComment on above:Performed By: #### LACTS #### [facility] ([address] [address] VIRCreatinine [Mass/Vol]1.16 mg/dLHigh0.40-1.00ProPeterson Regional Medical CenterComment on above:Result Comment: METHOD TRACEABLE TO IDNY STANDARDPerformed By: #### LACTS #### [facility] ([address] [address] VIRGFR/1.73 sq M.predicted among non-blacks MDRD (S/P/Bld) [Vol rate/Area]53 mL/min/{1.73_m2}Low>=60ProPeterson Regional Medical CenterComment on above:Result Comment: eGFR not reported due to non-numeric value for Creatinine. Reported eGFR is based on the CKD-EPI 2021 equation that does not use a race coefficient.Performed By: #### LACTS #### [facility] ([address] [address] VIRGlucose [Mass/Vol]127 mg/iONdng49-75CgmUvtxpyPeterson Regional Medical CenterComment on above:Performed By: #### LACTS #### [facility] ([address] [address] VIRPotassium [Moles/Vol]3.4 mmol/LLow3.5-5.0Hol[facility] Health SystemComment on above:Performed By: #### LACTS #### [facility] ([address] [address] VIRSodium [Moles/Vol]138 mmol/YDydjwn642-215AdgDsykam [facility] HospitalCommclaren [place] on above:Performed By: #### LACTS #### [facility] ([address] [address] VIRUrea nitrogen [Mass/Vol]13 mg/dLNormal5-27ProPeterson Regional Medical CenterComment on above:Performed By: #### LACTS #### [facility] ([address] [address] VIRCBC WITH AUTO DIFFERENTIALon 48-02-4516NQILGEYEV ABSOLUTE COUNT (10*3/UL) BY AUTOMATED COUNT0.2 10*3/uLNormal0.0-0.2PKettering Health Washington TownshipCommclaren oakland on above:Result Comment: This is an appended report. These results have been appended to a previously preliminary verified report.Performed By: #### LACTS #### [facility] ([address] [address] VIRBASOPHILS RELATIVE PERCENT BY AUTOMATED COUNT1.9 %Normal [facility] on above:Result Comment: This is an appended report. These results have been appended to a previously preliminary verified report.Performed By: #### LACTS #### [facility] ([address] [address] VIRCELLAVISION ANISOCYTOSIS IN BLOOD BY LIGHT MICROSCOPY2+ NormalProMedica Memorial Hospital on above:Result Comment: This is an appended report. These results have been appended to a previously preliminary verified report.Performed By: #### LACTS #### [facility] ([address] [address] VIRCELLAVISION DIFFERENTIAL TYPEAUTOMATED DIFFERENTIALNormal [facility] on above:Result Comment: This is an appended report. These results have been appended to a previously preliminary verified report.Performed By: #### LACTS #### [facility] ([address] [address] VIRCELLAVISION ELLIPTOCYTES IN BLOOD BY LIGHT MICROSCOPY1+ NormalHolzer Health SystemCommclaren oakland on above:Result Comment: This is an appended report. These results have been appended to a previously preliminary verified report.Performed By: #### LACTS #### [facility] ([address] [address] VIREosinophils (Bld) [#/Vol]0.2 10*3/uLNormal0.0-0.4[facility] on above:Result Comment: This is an appended report. These results have been appended to a previously preliminary verified report. Performed By: #### LACTS #### [facility] ([address] [address] VIREOSINOPHILS RELATIVE PERCENT BY AUTOMATED COUNT1.7 %Normal [facility] on above:Result Comment: This is an appended report. These results have been appended to a previously preliminary verified report.Performed By: #### LACTS #### [facility] ([address] [address] VIRErythrocyte distribution width (RBC) [Ratio]22.2 %High 11.5-15ProPeterson Regional Medical CenterComment on above:Performed By: #### LACTS #### [facility] ([address] [address] VIRHematocrit (Bld) [Volume fraction]34.6 %Iln01-31IzkXqtevuPeterson Regional Medical CenterComment on above:Performed By: #### LACTS #### [facility] ([address] [place] [address] VIRHemoglobin (Bld) [Mass/Vol]10.6 g/dLLow11.7-15.5PKettering Health Washington TownshipComment on above:Performed By: #### LACTS #### [facility] ([facility]) [address] [place] [address] VIRLYMPHOCYTES ABSOLUTE COUNT (10*3/UL) BY AUTOMATED COUNT2.2 10*3/uLNormal1.0-3.5PKettering Health Washington TownshipComment on above:Result Comment: This is an appended report. These results have been appended to a previously preliminary verified report.Performed By: #### LACTS #### [facility] ([address] [address] VIRLYMPHOCYTES RELATIVE PERCENT BY AUTOMATED COUNT23.0 %Normal [facility] SystemCommclaren [facility]land on above:Result Comment: This is an appended report. These results have been appended to a previously preliminary verified report.Performed By: #### LACTS #### [facility] ([address] [address] VIRMCH (RBC) [Entitic mass]20.0 jdFic88-96IagBsqzyhPeterson Regional Medical CenterComment on above:Performed By: #### LACTS #### [facility] ([address] [address] VIRMCHC (RBC) [Mass/Vol]30.6 g/yJDsh56-21AtfMvoojhPeterson Regional Medical CenterComment on above:Performed By: #### LACTS #### [facility] ([address] [address] VIRMCV (RBC) [Entitic vol]65 jBZrb87-200HumMcwquoPeterson Regional Medical CenterComment on above:Performed By: #### LACTS #### [facility] ([address] [address] VIRMONOCYTES ABSOLUTE COUNT (10*3/UL) BY AUTOMATED COUNT0.4 10*3/uLNormal0.0-0.9[facility] on above:Result Comment: This is an appended report. These results have been appended to a previously preliminary verified report.Performed By: #### LACTS #### [facility] ([address] [address] VIRMONOCYTES RELATIVE PERCENT BY AUTOMATED COUNT4.1 %Normal [facility] on above:Result Comment: This is an appended report. These results have been appended to a previously preliminary verified report.Performed By: #### LACTS #### [address] [address] VIRNEUTROPHILS ABSOLUTE COUNT BY AUTOMATED COUNT6.6 10*3/uL Normal1.5-6.6[facility] on above:Result Comment: This is an appended report. These results have been appended to a previously preliminary verified report.Performed By: #### LACTS #### [facility] ([address] [address] VIRNEUTROPHILS RELATIVE PERCENT BY AUTOMATED COUNT69.3 %Normal [facility] on above:Result Comment: This is an appended report. These results have been appended to a previously preliminary verified report.Performed By: #### LACTS #### [facility] ([address] [address] VIRPlatelet mean volume (Bld) [Entitic vol]8.4 fLNormal7-12 [facility] on above:Performed By: #### LACTS #### [facility] ([address] [address] VIRPlatelets (Bld) [#/Vol]360 10*3/gQMttwle784-121UjuRoyzpj [facility] HospitalComment on above:Performed By: #### LACTS #### [facility] ([facility]) [address] [place] [address] VIRRBC COUNT5.30 X10E12/LHigh3.8-5.2PBayne Jones Army Community Hospitalica [facility] Comment on above:Performed By: #### LACTS #### [facility] ([facility]) [address] [place] [address] VIRWBC (Bld) [#/Vol]9.6 10*3/uLNormal4-11ProMedica [facility] Hospital UclaComment on above:Performed By: #### LACTS #### [facility] ([facility]) [address] [place] [address] VIRCT ABDOMEN AND PELVIS W CONTon 36-51-1163ZQ ABDOMEN AND PELVIS W CONTCT ABDOMEN AND [...] by Cesario Cooley MD on 02/09/2025 3:45 PMNormalHolzer Health System LIPASEon 17-01-1484Pjyaop [Catalytic activity/Vol]41 U/KHyti78-40ZsmJwtmxyPeterson Regional Medical CenterComment on above:Performed By: #### LACTS #### [facility] ([place] [address] [place] [address] VIRLIVER PANELon 98-31-6296Yteatto [Mass/Vol]4.2 g/dLNormal 3.2-5.3PKettering Health Washington TownshipComment on above:Performed By: #### LACTS #### [facility] ([address] [place] [address] VIRALP [Catalytic activity/Vol]89 U/XAyeahg23-256IncEveuhaPeterson Regional Medical CenterComment on above:Performed By: #### LACTS #### [facility] ([address] [place] [address] VIRALT [Catalytic activity/Vol]17 U/LNormal<=31PKettering Health Washington TownshipComment on above:Performed By: #### LACTS #### [facility] ([place] [address] [place] [address] VIRAST [Catalytic activity/Vol]20 U/LNormal<=41ProPeterson Regional Medical CenterComment on above:Performed By: #### LACTS #### [facility] ([place] [address] [place] [address] VIRBilirubin [Mass/Vol]0.7 mg/dLNormal0.3-1.2PKettering Health Washington TownshipComment on above:Performed By: #### LACTS #### [facility] ([place] [address] [place] [address] VIRBilirubin.indirect [Mass/Vol]0.1 mg/dLNormal<=0.4ProPeterson Regional Medical CenterComment on above:Performed By: #### LACTS #### [facility] [facility] ([address] [place] [address] VIRProtein [Mass/Vol]7.9 g/dLNormal6.0-8.0ProPeterson Regional Medical CenterComment on above:Performed By: #### LACTS #### [facility] ([address] [place] [address] VIRBASIC METABOLIC PANELon 36-26-7820Qsphv gap [Moles/Vol]9 mmol/LNormal5-15ProPeterson Regional Medical CenterComment on above:Performed By: #### LACTS #### [facility] ([address] [place] [address] VIRCalcium [Mass/Vol]9.1 mg/dLNormal8.5-10.5PKettering Health Washington TownshipComment on above:Performed By: #### LACTS #### [facility] ([address] [place] [address] VIRChloride [Moles/Vol]102 mmol/TIvziot69-656CzxZuwoffPeterson Regional Medical CenterComment on above:Performed By: #### LACTS #### [facility] ([address] [place] [address] VIRCO2 [Moles/Vol]31 mmol/GRfhjzf17-33WfkLhhorsKettering Health Washington TownshipComment on above:Performed By: #### LACTS #### [facility] ([address] [place] [address] VIRCreatinine [Mass/Vol]1.27 mg/dLHigh0.40-1.00ProPeterson Regional Medical CenterComment on above:Result Comment: METHOD TRACEABLE TO IDMS STANDARDPerformed By: #### LACTS #### [facility] ([address] [place] [address] VIRGFR/1.73 sq M.predicted among non-blacks MDRD (S/P/Bld) [Vol rate/Area]48 mL/min/{1.73_m2}Low>=60ProPeterson Regional Medical CenterComment on above:Result Comment: Reported eGFR is based on the CKD-EPI 2020 equation that does not use a race coefficient.Performed By: #### LACTS #### [facility] ([address] [place] [address] VIRGlucose [Mass/Vol]91 mg/iNHidbmn32-48VcuOayhxuPeterson Regional Medical CenterComment on above:Performed By: #### LACTS #### [facility] ([address] [place] [address] VIRPotassium [Moles/Vol]4.2 mmol/LNormal3.5-5.0ProPeterson Regional Medical CenterComment on above:Performed By: #### LACTS #### [facility] ([address] [place] [address] VIRSodium [Moles/Vol]142 mmol/UZpatbl769-303LxkOsfzfj [facility]remont HospitalComment on above:Performed By: #### LACTS #### [facility] ([address] [place] [address] VIRUrea nitrogen [Mass/Vol]16 mg/dLNormal5-27ProPeterson Regional Medical CenterComment on above:Performed By: #### LACTS #### [facility] ([address] [place] [address] VIRBasic Metabolic Panelon 43-35-3218[place] gap [Moles/Vol]9 mmol/L5 - 15 mmol/LProMedica Health SystemCalcium [Mass/Vol]9.1 mg/dL8.5 - 10.5 mg/dLProMedica Health SystemChloride [Moles/Vol]102 mmol/L98 - 109 mmol/L [facility] SystemCO2 [Moles/Vol]31 mmol/L22 - 32 mmol/LPrGenesis Hospital SystemCreatinine [Mass/Vol]1.27 mg/dLHigh0.40 - 1.00 mg/dLMemorial HospitalComment on above:METHOD TRACEABLE TO IDMS STANDARDEGFR Non-Race Dependent 48Low- PINGlenbeigh Hospital SystemComment on above:Reported eGFR is based on the CKD-EPI 2020 equation that does not use a race coefficient. Glucose [Mass/Vol]91 mg/dL65 - 99 mg/dLMemorial HospitalInterpretation and review of laboratory resultsAbnormalMemorial HospitalPotassium [Moles/Vol]4.2 mmol/L3.5 - 5.0 mmol/[facility] Health SystemSodium [Moles/Vol] 142 mmol/L134 - 146 mmol/[facility] SystemUrea nitrogen [Mass/Vol]16 mg/dL5 - 27 mg/dLSouthwood Psychiatric HospitalBASIC METABOLIC PANELon 69-32-9418Hdmws gap [Moles/Vol]8 mmol/LNormal5-15[facility] Ambulatory PPGComment on above:Performed By: #### BMP #### [facility] ([facility]) [address] [place] [address] VIRCalcium [Mass/Vol]9.0 mg/dLEnderlin8.5-10.5PProMedica Fostoria [facility] Ambulatory PPGComment on above:Performed By: #### BMP #### [facility] ([facility]) [address] [place] [address] VIRChloride [Moles/Vol]101 mmol/ULhslfz07-157LdnZytzjy Hospital Ambulatory PPGComment on above:Performed By: #### BMP #### [facility] ([facility]) [address] [place] [address] VIRCO2 [Moles/Vol]33 mmol/QQspz77-34GquIgjbeo Hospital Ambulatory PPGComment on above:Performed By: #### BMP #### [facility] ([facility]) [address] [place] [address] VIRCreatinine [Mass/Vol]1.32 mg/dLHigh0.40-1.00[facility] Ambulatory PPGComment on above:Result Comment: METHOD TRACEABLE TO IDMS STANDARDPerformed By: #### BMP #### [facility] ([facility]) [address] [place] [address] VIRGFR/1.73 sq M.predicted among non-blacks MDRD (S/P/Bld) [Vol rate/Area]46 mL/min/{1.73_m2}Low>=60ProKettering Health Mi[facility]burg Ambulatory PPGComment on above:Result Comment: Reported eGFR is based on the CKD-EPI 2020 equation that does not use a race coefficient.Performed By: #### BMP #### [facility] ([facility]) [address] [place] [address] VIRGlucose [Mass/Vol]106 mg/vPIxde25-94VyuZeclul Hospital Ambulatory PPGComment on above:Performed By: #### BMP #### [facility] ([facility]) [address] [place] [address] VIRPotassium [Moles/Vol]4.5 mmol/LNormal3.5-5.0[facility] Ambulatory PPGComment on above:Performed By: #### BMP #### [facility] ([facility]) [address] [place] [address] VIRSodium [Moles/Vol]142 mmol/ETxntrd727-450QayPzqpyg Hospital Ambulatory PPGComment on above:Performed By: #### BMP #### [facility] ([facility]) [address] [place] [address] VIRUrea nitrogen [Mass/Vol]21 mg/dLNormal5-27[facility] Ambulatory PPGComment on above:Performed By: #### BMP #### [facility] ([facility]) [address] [place] [address] VIRBasic Metabolic Panelon 88-19-8613Kuwuu gap [Moles/Vol]8 mmol/L5 - 15 mmol/LProMedica Health SystemCalcium [Mass/Vol]9 mg/dL8.5 - 10.5 mg/dLBarnesville Hospital SystemChloride [Moles/Vol]101 mmol/L98 - 109 mmol/L [facility] SystemCO2 [Moles/Vol]33 mmol/LHigh22 - 32 mmol/LPrGenesis Hospital SystemCreatinine [Mass/Vol]1.32 mg/dLHigh0.40 - 1.00 mg/dLMemorial HospitalComment on above:METHOD TRACEABLE TO IDNY STANDARDEGFR Non-Race Olbalzgyi89Dqw- PINFPUniversity Hospitals Parma Medical CenterComment on above:Reported eGFR is based on the CKD-EPI 2020 equation that does not use a race coefficient. Glucose [Mass/Vol]106 mg/jOYabd89 - 99 mg/dLMemorial Hospital Interpretation and review of laboratory resultsAbnoLevine Children's Hospital Potassium [Moles/Vol]4.5 mmol/L3.5 - 5.0 mmol/LPrRose Medical Center Health SystemSodium [Moles/Vol]142 mmol/L134 - 146 mmol/[facility] SystemUrea nitrogen [Mass/Vol]21 mg/dL5 - 27 mg/dLSouthwood Psychiatric Hospital BASIC METABOLIC PANELon 82-31-4206Qgrry gap [Moles/Vol]10 mmol/LNormal5-15 [facility] SystemComment on above:Performed By: #### LACTS #### [facility] ([address] [place] [address] VIRCalcium [Mass/Vol]9.6 mg/dLNormal8.5-10.5PKettering Health Washington TownshipComment on above:Performed By: #### LACTS #### [facility] ([address] [place] [address] VIRChloride [Moles/Vol]98 mmol/FOsjwdl83-057RpxUnzipxHolzer Health SystemComment on above:Performed By: #### LACTS #### [facility] ([address] [place] [address] VIRCO2 [Moles/Vol]35 mmol/MLrtm85-85BceXcpzoaLoma Linda University Medical Center Comment on above:Performed By: #### LACTS #### [facility] ([address] [address] VIRCreatinine [Mass/Vol]1.47 mg/dLHigh0.40-1.00ProPeterson Regional Medical CenterComment on above:Result Comment: METHOD TRACEABLE TO IDMS STANDARDPerformed By: #### LACTS #### [facility] ([address] [address] VIRGFR/1.73 sq M.predicted among non-blacks MDRD (S/P/Bld) [Vol rate/Area]40 mL/min/{1.73_m2}Low>=60ProPeterson Regional Medical CenterComment on above:Result Comment: Reported eGFR is based on the CKD-EPI 2020 equation that does not use a race coefficient.Performed By: #### LACTS #### [facility] ([address] [address] VIRGlucose [Mass/Vol]110 mg/wHEmxr92-01UpnDrohayPeterson Regional Medical CenterComment on above:Performed By: #### LACTS #### [facility] ([address] [address] VIRPotassium [Moles/Vol]4.5 mmol/LNormal3.5-5.0ProPeterson Regional Medical CenterComment on above:Performed By: #### LACTS #### [facility] ([address] [address] VIRSodium [Moles/Vol]143 mmol/LXgtxvq617-953VmyXxnivd [facility] HospitalComment on above:Performed By: #### LACTS #### [facility] ([address] [address] VIRUrea nitrogen [Mass/Vol]23 mg/dLNormal5-27ProPeterson Regional Medical CenterComment on above:Performed By: #### LACTS #### [facility] ([address] [place] [address] VIRBASIC METABOLIC PANELon 78-71-9110Ldzvp gap [Moles/Vol]6 mmol/LNormal5-15[facility] SystemComment on above:Performed By: #### VBG #### [facility] ([address] [place] [address] VIRCalcium [Mass/Vol]9.2 mg/dLNormal8.5-10.5PKettering Health Washington TownshipComment on above:Performed By: #### VBG #### [facility] ([address] [place] [address] VIRChloride [Moles/Vol]103 mmol/NUjtcbd54-397ScwXhgzofPeterson Regional Medical CenterComment on above:Performed By: #### VBG #### [facility] ([address] [place] [address] VIRCO2 [Moles/Vol]34 mmol/KIkaj08-83CrtQgxljpKettering Health Washington Township Comment on above:Performed By: #### VBG #### [facility] ([address] [place] [address] VIRCreatinine [Mass/Vol]0.84 mg/dLNormal0.40-1.00ProPeterson Regional Medical CenterComment on above:Result Comment: METHOD TRACEABLE TO IDMS STANDARDPerformed By: #### VBG #### [facility] ([address] [place] [address] VIRGFR/1.73 sq M.predicted among non-blacks MDRD (S/P/Bld) [Vol rate/Area]79 mL/min/{1.73_m2}Normal>=60ProPeterson Regional Medical CenterComment on above:Result Comment: eGFR not reported due to non-numeric value for Creatinine. Reported eGFR is based on the CKD-EPI 2020 equation that does not use a race coefficient.Performed By: #### VBG #### [facility] ([address] [place] [address] VIRGlucose [Mass/Vol]126 mg/qHCflq81-14CijHcvyfhPeterson Regional Medical CenterComment on above:Performed By: #### VBG #### [facility] ([address] [place] [address] VIRPotassium [Moles/Vol]4.3 mmol/LNormal3.5-5.0ProPeterson Regional Medical CenterComment on above:Performed By: #### VBG #### [facility] ([address] [place] [address] VIRSodium [Moles/Vol]143 mmol/BXaylmr672-387LcpWdujkm [facility] HospitalComment on above:Performed By: #### VBG #### [facility] ([address] [place] [address] VIRUrea nitrogen [Mass/Vol]24 mg/dLNormal5-27ProPeterson Regional Medical CenterComment on above:Performed By: #### VBG #### [facility] ([address] [place] [address] VIRBLOOD GAS, VENOUSon 18-59-0877TMBJ,DMNKLM77.0 mmol/LHigh 0.0-2.0ProPeterson Regional Medical CenterComment on above:Performed By: #### LACTS #### [facility] ([address] [place] [address] VIRHCO3 (Bld) [Moles/Vol]37.4 mmol/LHigh20.0-24.0[facility] Health SystemComment on above:Performed By: #### LACTS #### [facility] ([address] [place] [address] VIROxygen saturation in Blood80.0 %NormalProPeterson Regional Medical CenterComment on above:Performed By: #### LACTS #### [facility] ([address] [place] [address] VIRPCO2 UHBOXO66.6 njImBcli69.0-50.0[facility] Comment on above:Performed By: #### LACTS #### [facility] ([address] [place] [address] VIRPH VENOUS7.926Lhkrhh4.320-7.420[facility] Comment on above:Performed By: #### LACTS #### [facility] ([address] [place] [address] VIRPO2 XHBZKM56 rpBtKpxyni78-75VbwGnyvctHolzer Health System Comment on above:Performed By: #### LACTS #### [facility] ([address] [place] [address] VIRPOC RAVINDRA'S TESTN/ANormalProPeterson Regional Medical CenterComment on above:Performed By: #### LACTS #### [facility] ([address] [place] [address] VIRSAMPLE SITEN/ANormalHolzer Health SystemComment on above:Performed By: #### LACTS #### [facility] ([address] [place] [address] VIRSAMPLE TYPEVENOUSNormalHolzer Health SystemComment on above:Performed By: #### LACTS #### [facility] ([address] [place] [address] VIRSOURCE OF OXYGENNCNormalHolzer Health SystemComment on above:Performed By: #### LACTS #### [facility] ([address] [place] [address] VIRBLOOD GAS, VENOUSVBG BLOOD GAS, VENOUS CancelledNormal [facility] SystemPHOSPHORUSon 12-73-3406Rmdrhhwdw [Mass/Vol]3.1 mg/dL Normal2.4-4.9[facility] Health SystemComment on above:Performed By: #### LACTS #### [facility] ([address] [place] [address] VIRBASIC METABOLIC PANELon 37-46-0847Ljfou gap [Moles/Vol]7 mmol/LNormal5-15ProPeterson Regional Medical CenterComment on above:Performed By: #### VBG #### [facility] ([address] [place] [address] VIRCalcium [Mass/Vol]8.8 mg/dLNormal8.5-10.5PKettering Health Washington TownshipComment on above:Performed By: #### VBG #### [facility] ([address] [place] [address] VIRChloride [Moles/Vol]96 mmol/YNah58-905KwdQmbcbmPeterson Regional Medical CenterComment on above:Performed By: #### VBG #### [facility] ([address] [place] [address] VIRCO2 [Moles/Vol]34 mmol/CHuxm41-18MtwZcygwvKettering Health Washington Township Comment on above:Performed By: #### VBG #### [facility] ([address] [place] [address] VIRCreatinine [Mass/Vol]0.91 mg/dLNormal0.40-1.00ProPeterson Regional Medical CenterComment on above:Result Comment: METHOD TRACEABLE TO IDMS STANDARDPerformed By: #### VBG #### [facility] ([address] [place] [address] VIRGFR/1.73 sq M.predicted among non-blacks MDRD (S/P/Bld) [Vol rate/Area]71 mL/min/{1.73_m2}Normal>=60ProPeterson Regional Medical CenterComment on above:Result Comment: eGFR not reported due to non-numeric value for Creatinine. Reported eGFR is based on the CKD-EPI 2021 equation that does not use a race coefficient.Performed By: #### VBG #### [facility] ([address] [place] [address] VIRGlucose [Mass/Vol]140 mg/fCTmzz92-73XprPdabioPeterson Regional Medical CenterComment on above:Performed By: #### VBG #### [facility] ([address] [place] [address] VIRPotassium [Moles/Vol]4.0 mmol/LNormal3.5-5.0ProPeterson Regional Medical CenterComment on above:Performed By: #### VBG #### [address] [place] [address] VIRSodium [Moles/Vol]137 mmol/CEngdps932-880WuaWhtpbs [facility]remont HospitalComment on above:Performed By: #### VBG #### [address] [place] [address] VIRUrea nitrogen [Mass/Vol]19 mg/dLNormal5-27ProPeterson Regional Medical CenterComment on above:Performed By: #### VBG #### [address] [place] [address] VIRBEDSIDE GLUCOSEon 17-06-2821Bmthors [Mass/Vol]147 mg/dLHigh 65-99ProPeterson Regional Medical CenterComment on above:Performed By: #### VBG #### [facility] ([address] [place] [address] VIRGlucose [Mass/Vol]144 mg/cBOzhj32-05XxkGsmqvuPeterson Regional Medical CenterComment on above:Performed By: #### VBG #### [facility] ([address] [place] [address] VIRBLOOD GAS, VENOUSon 79-49-7699FYUW,EXCESS7.0 mmol/LHigh 0.0-2.0[facility] Health SystemComment on above:Performed By: #### VBG #### [facility] ([address] [place] [address] VIRHCO3 (Bld) [Moles/Vol]34.7 mmol/LHigh20.0-24.0[facility] Health SystemComment on above:Performed By: #### VBG #### [facility] ([address] [place] [address] VIROxygen saturation in Blood81.0 %NormalProPeterson Regional Medical CenterComment on above:Performed By: #### VBG #### [address] [place] [address] VIRPCO2 YUHOQB59.3 mrQwKkxm04.0-50.0[facility] Comment on above:Performed By: #### VBG #### [facility] ([address] [place] [address] VIRPH VENOUS7.625Xlicun9.320-7.420[facility] Comment on above:Performed By: #### VBG #### [facility] ([address] [place] [address] VIRPO2 BOKMRE09 bjEgOfvwei93-23IxrDuygstHolzer Health System Comment on above:Performed By: #### VBG #### [facility] ([address] [place] [address] VIRPOC RAVINDRA'S TESTN/ANormalProPeterson Regional Medical CenterComment on above:Performed By: #### VBG #### [facility] ([address] [place] [address] VIRSAMPLE SITEN/ANormalProPeterson Regional Medical CenterCommclaren [place] on above:Performed By: #### VBG #### [facility] ([facility]) [address] [place] [address]. [place] [address] VIRSAMPLE TYPEVENOUSNoMartins Ferry HospitalCommclaren [place] on above:Performed By: #### VBG #### [facility] ([facility]) [address] [place] [address]. [place] [address] VIRSOURCE OF OXYGENNCNormalHolzer Health SystemCommclaren [place] on above:Performed By: #### VBG #### [facility] ([address] [place] [address] VIRBLOOD GAS, VENOUSVBG BLOOD GAS, VENOUS CancelledNormal [facility] WITH AUTO DIFFERENTIALon 85-90-2637OJAITTMBA ABSOLUTE COUNT (10*3/UL) BY AUTOMATED COUNT0.0 10*3/uLNormal0.0-0.2[facility] on above:Result Comment: This is an appended report. These results have been appended to a previously preliminary verified report. Performed By: #### VBG #### [facility] ([address] [place] [address] VIRBASOPHILS RELATIVE PERCENT BY AUTOMATED COUNT0.2 %Normal [facility] on above:Result Comment: This is an appended report. These results have been appended to a previously preliminary verified report.Performed By: #### VBG #### [facility] ([address] [place] [address] VIRCELLAVISION ANISOCYTOSIS IN BLOOD BY LIGHT MICROSCOPY2+ [facility] on above:Result Comment: This is an appended report. These results have been appended to a previously preliminary verified report.Performed By: #### VBG #### [facility] ([address] [place] [address] VIRCELLAVISION DIFFERENTIAL TYPEAUTOMATED DIFFERENTIALNormal [facility] on above:Result Comment: This is an appended report. These results have been appended to a previously preliminary verified report.Performed By: #### VBG #### [facility] ([facility]) [address] [place] [address] VIRCELLAVISION MICROCYTES IN BLOOD BY LIGHT MICROSCOPY2+Normal [facility] on above:Result Comment: This is an appended report. These results have been appended to a previously preliminary verified report.Performed By: #### VBG #### [facility] ([address] [address] VIRCELLAVISION RBC MORPHOLOGYabnormalNormalProMedica Memorial Hospital on above:Result Comment: This is an appended report. These results have been appended to a previously preliminary verified report.Performed By: #### VBG #### [facility] ([facility]) [address] [place] [address] VIRCELLAVISION STOMATOCYTES IN BLOOD BY LIGHT MICROSCOPY3+ NormalProMedica Memorial Hospital on above:Result Comment: This is an appended report. These results have been appended to a previously preliminary verified report.Performed By: #### VBG #### [facility] ([address] [address] VIREosinophils (Bld) [#/Vol]0.0 10*3/uLNormal0.0-0.4[facility] on above:Result Comment: This is an appended report. These results have been appended to a previously preliminary verified report. Performed By: #### VBG #### [facility] ([facility]) [address] [place] [address] VIREOSINOPHILS RELATIVE PERCENT BY AUTOMATED COUNT0.0 %Normal [facility] on above:Result Comment: This is an appended report. These results have been appended to a previously preliminary verified report.Performed By: #### VBG #### [facility] ([address] [address] VIRErythrocyte distribution width (RBC) [Ratio]19.6 %High 11.5-15Hol[facility] Health SystemComment on above:Performed By: #### VBG #### [facility] ([address] [address] VIRHematocrit (Bld) [Volume fraction]27.7 %Dso59-93UlgWpxiwgPeterson Regional Medical CenterComment on above:Performed By: #### VBG #### [facility] ([address] [address] VIRHemoglobin (Bld) [Mass/Vol]8.2 g/dLLow11.7-15.5PKettering Health Washington TownshipComment on above:Performed By: #### VBG #### [facility] ([address] [address] VIRLYMPHOCYTES ABSOLUTE COUNT (10*3/UL) BY AUTOMATED COUNT0.5 10*3/uLLow1.0-3.5PKettering Health Washington TownshipComment on above:Result Comment: This is an appended report. These results have been appended to a previously prelimi nary verified report.Performed By: #### VBG #### [facility] ([address] [address] VIRLYMPHOCYTES RELATIVE PERCENT BY AUTOMATED COUNT5.3 %Normal [facility] SystemCommclaren oakland on above:Result Comment: This is an appended report. These results have been appended to a previously preliminary verified report.Performed By: #### VBG #### [facility] ([address] [address] VIRMCH (RBC) [Entitic mass]19.4 zpYje15-35NnuMxhrpxPeterson Regional Medical CenterComment on above:Performed By: #### VBG #### [facility] ([place] [address] [facility] [place] [address] VIRMCHC (RBC) [Mass/Vol]29.7 g/zJVqa68-49FuuUtblizPeterson Regional Medical CenterComment on above:Performed By: #### VBG #### [facility] ([address] [address] VIRMCV (RBC) [Entitic vol]65 gDRmi86-357MicAakztfPeterson Regional Medical CenterComment on above:Performed By: #### VBG #### [facility] ([address] [address] VIRMONOCYTES ABSOLUTE COUNT (10*3/UL) BY AUTOMATED COUNT0.2 10*3/uLNormal0.0-0.9ProTexas Health Frisco on above:Result Comment: This is an appended report. These results have been appended to a previously preliminary verified report.Performed By: #### VBG #### [facility] ([address] [address] VIRMONOCYTES RELATIVE PERCENT BY AUTOMATED COUNT2.3 %Normal [facility] SystemCommclaren oakland on above:Result Comment: This is an appended report. These results have been appended to a previously preliminary verified report.Performed By: #### VBG #### [facility] ([address] [address] VIRNEUTROPHILS ABSOLUTE COUNT BY AUTOMATED COUNT8.3 10*3/uL High1.5-6.6ProPeterson Regional Medical CenterCommclaren oakland on above:Result Comment: This is an appended report. These results have been appended to a previously preliminary verified report.Performed By: #### VBG #### [facility] ([address] [address] VIRNEUTROPHILS RELATIVE PERCENT BY AUTOMATED COUNT92.2 %Normal [facility] SystemCommclaren oakland on above:Result Comment: This is an appended report. These results have been appended to a previously preliminary verified report.Performed By: #### VBG #### [facility] ([address] [address] VIRPlatelet mean volume (Bld) [Entitic vol]7.3 fLNormal7-12 [facility] SystemComment on above:Performed By: #### VBG #### [facility] ([address] [address] VIRPlatelets (Bld) [#/Vol]238 10*3/cLHxhvvv120-683PuxTpcnltHolzer Health SystemComment on above:Performed By: #### VBG #### [facility] ([address] [address] VIRRBC COUNT4.24 X10E12/LNormal3.8-5.2[facility]claComment on above:Performed By: #### VBG #### [facility] ([address] [address] VIRWBC (Bld) [#/Vol]9.1 10*3/uLNormal4-11[facility] SystemComment on above:Performed By: #### VBG #### [facility] ([address] [address] VIRLOWER RESP CULTURE SPUTUM CULTURE INC GRAM STAINon [id number] RESP CULTURE SPUTUM CULTURE INC GRAM STAINCULTURE RESULTS CULTURE CANCELLED. SPECIMEN DOES NOT MEET CRITERIA FOR CULTURING. PLEASE REORDER AND RESUBMIT. GRAM STAIN >25 Squamous Epithelial Cells/LPF with Mixed Bacterial Types Seen. Regarded as Saliva not SputumNormalHolzer Health SystemComment on above:Performed By: #### LACTS #### [facility] ([address] [address] VIRPHOSPHORUSon 18-95-0554Owicbbpls [Mass/Vol]2.3 mg/dLLow 2.4-4.9ProPeterson Regional Medical CenterComment on above:Performed By: #### VBG #### [facility] ([facility]) [address] [place] [address] [place] [address] VIRB-TYPE NATRIURETIC PEPTIDEon 25-65-2986Wtxsecwmsct peptide B (Bld) [Mass/Vol]259 pg/mLHigh<=100ProPeterson Regional Medical CenterComment on above: Performed By: #### BMP #### [facility] ([facility]) [address] [place] [address] VIRBEDSIDE GLUCOSEon 01-76-5820Ydpesjx [Mass/Vol]125 mg/dLHigh 65-99ProPeterson Regional Medical CenterComment on above:Performed By: #### VBG #### [facility] ([address] [place] [address] VIRGlucose [Mass/Vol]165 mg/cFZfkj78-09WvzQhsyrc [facility] HospitalComment on above:Performed By: #### VBG #### [facility] ([address] [place] [address] VIRGlucose [Mass/Vol]196 mg/xARhlr35-58QblBphdch [facility] HospitalComment on above:Performed By: #### BMP #### [facility] ([facility]) [address] [place] [address] VIRGlucose [Mass/Vol]167 mg/lLKjhc82-41KetFarzvw [facility] HospitalComment on above:Performed By: #### BMP #### [facility] ([facility]) [address] [place] [address] VIRBLOOD GAS, VENOUSon 86-37-2261ESIK,EXCESS7.0 mmol/LHigh 0.0-2.0ProPeterson Regional Medical CenterComment on above:Performed By: #### BMP #### [facility] ([facility]) [address] [place] [address] VIRHCO3 (Bld) [Moles/Vol]36.1 mmol/LHigh20.0-24.0Holzer Health SystemComment on above:Performed By: #### BMP #### [facility] ([facility]) [address] [place] [address] VIRINSP. O2 CONC.50 %[facility] HospitalComment on above:Performed By: #### BMP #### [facility] ([facility]) [address] [place] [address] VIROxygen saturation in Blood38.0 %[facility] HospitalComment on above:Performed By: #### BMP #### [facility] ([facility]) [address] [place] [address] VIRPCO2 NGLMOZ01.0 xuWeGyvl28.0-50.0[facility] Comment on above:Performed By: #### BMP #### [facility] ([facility]) [address] [place] [address] VIRPH VENOUS7.919Pwh8.320-7.420[facility] Comment on above:Performed By: #### BMP #### [facility] ([facility]) [address] [place] [address] VIRPO2 JVAYKL75 baEkKce03-99MknAzbrxsHolzer Health SystemComment on above:Performed By: #### BMP #### [facility] ([facility]) [address] [place] [address] VIRPOC RAVINDRA'S TESTN/ANormalHolzer Health SystemComment on above:Performed By: #### BMP #### [facility] ([facility]) [address] [place] [address] VIRSAMPLE SITEN/ANormalProPeterson Regional Medical CenterComment on above:Performed By: #### BMP #### [facility] ([facility]) [address] [place] [address] VIRSAMPLE TYPEVENOUSNormalHolzer Health SystemComment on above:Performed By: #### BMP #### [facility] ([facility]) [address] [place] [address] VIRSOURCE OF OXYGENNCNormalHolzer Health SystemComment on above:Performed By: #### BMP #### [facility] ([facility]) [address] [place] [address] VIRBLOOD GAS, VENOUSVBG BLOOD GAS, VENOUS CancelledNormal [facility] Health SystemBASE,EXCESS6.0 mmol/LHigh0.0-2.0Holzer Health SystemComment on above:Performed By: #### VBG ####[facility] ([facility])[address] [place] [address] VIRHCO3 (Bld) [Moles/Vol]38.1 mmol/LHigh20.0-24.0Holzer Health SystemComment on above:Performed By: #### VBG ####[facility] ([facility])[address] [place] [address] VIRINSP. O2 CONC.40 %[facility] Comment on above:Performed By: #### VBG ####[facility] ([facility])[address] [place] [address].[place] [address] VIROxygen saturation in Blood38.0 % [facility] HospitalComment on above:Performed By: #### VBG ####[facility] ([facility])[address] [place] [address].[place], [place] [address] VIRPCO2 UPRNNB547.3 prDvHhgx41.0-50.0Holzer Health SystemComment on above:Performed By: #### VBG ####[facility] ([facility])[address] [place] [address].[place] [address] VIRPH VENOUS7.810Gmq7.320-7.420ProMedica Colony HospitalComment on above:Performed By: #### VBG ####[facility] ([facility])[address] [place] [address] [place] [address] VIRPO2 OLAKSK49 mmHg Qva02-44GqmQuzuaxPeterson Regional Medical CenterComment on above:Performed By: #### VBG ####[facility] ([facility])[address] [place] [address] [address], [place] [address] VIRPOC RAVINDRA'S TESTN/ANormalHolzer Health SystemComment on above: Performed By: #### VBG ####[facility] ([facility])[address] [place] [address] [place] [address] VIRSAMPLE SITEN/[facility] Comment on above:Performed By: #### VBG ####[facility] ([facility])[address] [place] [address] [place] [address] VIRSAMPLE TYPEVENOUSNormalHolzer Health SystemComment on above:Performed By: #### VBG ####[facility] ([facility])[address] [place] [address] [place] [address] VIRSOURCE OF OXYGEN NPPVNoMartins Ferry HospitalComment on above:Performed By: #### VBG ####[facility] ([facility])[address] [place] [address] [place], [place] [address] VIRBLOOD GAS, VENOUSVBG BLOOD GAS, VENOUS CancelledNormalHolzer Health SystemCB WITH AUTO DIFFERENTIALon 43-14-5955Cwxvambsep stippling LM Ql (Bld) 1+NormalProPeterson Regional Medical CenterComment on above:Result Comment: This is an appended report. These results have been appended to a previously preliminary verified report.Performed By: #### BMP #### [facility] ([facility]) [address] [place] [address] VIRBASOPHILS ABSOLUTE COUNT (10*3/UL) BY AUTOMATED COUNT0.0 10*3/uLNormal0.0-0.2[facility] UclaCommclaren [place]land on above:Result Comment: This is an appended report. These results have been appended to a previously preliminary verified report.Performed By: #### BMP #### [facility] ([facility]) [address] [place] [address] VIRBASOPHILS RELATIVE PERCENT BY AUTOMATED COUNT0.2 %Normal [facility] Health SystemCommclaren oakland on above:Result Comment: This is an appended report. These results have been appended to a previously preliminary verified report.Performed By: #### BMP #### [facility] ([facility]) [address] [place] [address] VIRCELLAVISION DIFFERENTIAL TYPEAUTOMATED DIFFERENTIALNoal [facility] Health SystemCommclaren oakland on above:Result Comment: This is an appended report. These results have been appended to a previously preliminary verified report.Performed By: #### BMP #### [facility] ([facility]) [address] [place] [address] VIRCELLAVISION ELLIPTOCYTES IN BLOOD BY LIGHT MICROSCOPY1+ NormalHolzer Health SystemCommclaren oakland on above:Result Comment: This is an appended report. These results have been appended to a previously preliminary verified report.Performed By: #### BMP #### [facility] ([facility]) [address] [place] [address] VIRCELLAVISION POLYCHROMASIA IN BLOOD BY LIGHT MICROSCOPY1+ NormalProTexas Health Frisco on above:Result Comment: This is an appended report. These results have been appended to a previously preliminary verified report.Performed By: #### BMP #### [facility] ([facility]) [address] [place] [address] VIRCELLAVISION STOMATOCYTES IN BLOOD BY LIGHT MICROSCOPY1+ NormalProMedica Memorial Hospital on above:Result Comment: This is an appended report. These results have been appended to a previously preliminary verified report.Performed By: #### BMP #### [facility] ([facility]) [address] [place] [address] VIREosinophils (Bld) [#/Vol]0.0 10*3/uLNormal0.0-0.4[facility] on above:Result Comment: This is an appended report. These results have been appended to a previously preliminary verified report. Performed By: #### BMP #### [facility] ([facility]) [address] [place] [address] VIREOSINOPHILS RELATIVE PERCENT BY AUTOMATED COUNT0.0 %Normal [facility] Health SystemCommclaren oakland on above:Result Comment: This is an appended report. These results have been appended to a previously preliminary verified report.Performed By: #### BMP #### [facility] ([facility]) [address] [place] [address] VIRErythrocyte distribution width (RBC) [Ratio]20.2 %High 11.5-15ProPeterson Regional Medical CenterComment on above:Performed By: #### BMP #### [facility] ([facility]) [address] [place] [address] VIRHematocrit (Bld) [Volume fraction]34.4 %Isi34-52JatNihftrHolzer Health SystemComment on above:Performed By: #### BMP #### [facility] ([facility]) [address] [place] [address] VIRHemoglobin (Bld) [Mass/Vol]9.8 g/dLLow11.7-15.5PKettering Health Washington TownshipCommclaren oakland on above:Performed By: #### BMP #### [facility] ([facility]) [address] [place] [address] VIRLYMPHOCYTES ABSOLUTE COUNT (10*3/UL) BY AUTOMATED COUNT0.5 10*3/uLLow1.0-3.5PKettering Health Washington TownshipCommclaren oakland on above:Result Comment: This is an appended report. These results have been appended to a previously prelimi nary verified report.Performed By: #### BMP #### [facility] ([facility]) [address] [place] [address] VIRLYMPHOCYTES RELATIVE PERCENT BY AUTOMATED COUNT3.7 %Normal [facility] Health SystemCommclaren oakland on above:Result Comment: This is an appended report. These results have been appended to a previously preliminary verified report.Performed By: #### BMP #### [facility] ([facility]) [address] [place] [address] VIRMCH (RBC) [Entitic mass]19.1 nsGzo26-26EgaQanxilPeterson Regional Medical CenterComment on above:Performed By: #### BMP #### [facility] ([facility]) [address] [place] [address] VIRMCHC (RBC) [Mass/Vol]28.5 g/xTGnd90-35GtxVssxpbPeterson Regional Medical CenterComment on above:Performed By: #### BMP #### [facility] ([facility]) [address] [place] [address] VIRMCV (RBC) [Entitic vol]67 dZFww57-544QynPmfyuePeterson Regional Medical CenterComment on above:Performed By: #### BMP #### [facility] ([facility]) [address] [place] [address] VIRMONOCYTES ABSOLUTE COUNT (10*3/UL) BY AUTOMATED COUNT0.9 10*3/uLNormal0.0-0.9Holzer Health SystemCommclaren oakland on above:Result Comment: This is an appended report. These results have been appended to a previously preliminary verified report.Performed By: #### BMP #### [facility] ([facility]) [address] [place] [address] VIRMONOCYTES RELATIVE PERCENT BY AUTOMATED COUNT6.7 %Normal [facility] Health SystemCommclaren oakland on above:Result Comment: This is an appended report. These results have been appended to a previously preliminary verified report.Performed By: #### BMP #### [facility] ([facility]) [address] [place] [address] VIRNEUTROPHILS ABSOLUTE COUNT BY AUTOMATED COUNT12.0 10*3/uL High1.5-6.6Holzer Health SystemCommclaren oakland on above:Result Comment: This is an appended report. These results have been appended to a previously preliminary verified report.Performed By: #### BMP #### [facility] ([facility]) [address] [place] [address] VIRNEUTROPHILS RELATIVE PERCENT BY AUTOMATED COUNT89.4 %Normal [facility] Health SystemCommclaren oakland on above:Result Comment: This is an appended report. These results have been appended to a previously preliminary verified report.Performed By: #### BMP #### [facility] ([facility]) [address] [place] [address] VIRPlatelet mean volume (Bld) [Entitic vol]6.9 fLLow7-12 [facility] SystemComment on above:Performed By: #### BMP #### [facility] ([facility]) [address] [place] [address] VIRPlatelets (Bld) [#/Vol]354 10*3/sUHjryox458-323JicUspmnp [facility] HospitalComment on above:Performed By: #### BMP #### [facility] ([facility]) [address] [place] [address] VIRRBC COUNT5.13 X10E12/LNormal3.8-5.2PKettering Health Washington TownshipCommclaren oakland on above:Performed By: #### BMP #### [facility] ([facility]) [address] [place] [address] VIRWBC (Bld) [#/Vol]13.5 10*3/uLHigh4-11Hol[facility] Health SystemCommclaren oakland on above:Performed By: #### BMP #### [facility] ([facility]) [address] [place] [address] VIRCOMPREHENSIVE METABOLIC PANELon 44-54-1581Aulvlte [Mass/Vol] 3.7 g/dLNormal3.2-5.3PKettering Health Washington TownshipComment on above:Performed By: #### CMP ####[facility] ([place] [address] [address] VIRALP [Catalytic activity/Vol]138 U/EAjth13-920RjsCmgbdtPeterson Regional Medical CenterComment on above:Performed By: #### CMP ####[facility] ([address] [place] [address] VIRALT [Catalytic activity/Vol]36 U/LHigh<=31PKettering Health Washington TownshipComment on above:Performed By: #### CMP ####[facility] ([address] [place] [address] VIRAnion gap [Moles/Vol]9 mmol/LNormal5-15ProPeterson Regional Medical CenterComment on above:Performed By: #### CMP ####[facility] ([address] [place] [address] VIRAST [Catalytic activity/Vol]38 U/LNormal<=41ProPeterson Regional Medical CenterComment on above: Performed By: #### CMP ####[facility] ([address] [place] [address] VIRBilirubin [Mass/Vol]0.3 mg/dLNormal0.3-1.2 [facility] SystemComment on above:Performed By: #### CMP ####[facility] ([address] [place] [address] VIRCalcium [Mass/Vol]9.0 mg/dLNormal8.5-10.5PKettering Health Washington TownshipComment on above: Performed By: #### CMP ####[facility] ([place] [address] [place] [address] VIRChloride [Moles/Vol]96 mmol/CBae34-629EieLdxjduPeterson Regional Medical CenterComment on above:Performed By: #### CMP ####[facility] ([facility])[address] [place] [address].[place] [address] VIRCO2 [Moles/Vol]36 mmol/XVsig05-73GdiYifuji [facility]el Children'S Hospital UclaComment on above:Performed By: #### CMP ####[facility] ([facility])[address] [place] [address] VIRCreatinine [Mass/Vol]1.45 mg/dLHigh0.40-1.00[facility] Comment on above:Result Comment: METHOD TRACEABLE TO IDMS STANDARDPerformed By: #### CMP ####[facility] ([address] [address] VIRGFR/1.73 sq M.predicted among non-blacks MDRD (S/P/Bld) [Vol rate/Area]41 mL/min/{1.73_m2}Low>=60ProPeterson Regional Medical CenterComment on above:Result Comment: eGFR not reported due to non-numeric value for Creatinine. Reported eGFR is based on the CKD-EPI 2021 equation that does not use a race coefficient.Performed By: #### CMP ####[facility] ([address] [address] VIRGlucose [Mass/Vol]133 mg/cRJzhf73-88CjgUahbzpPeterson Regional Medical CenterComment on above:Performed By: #### CMP ####[facility] ([facility])[address] [place] [address] VIRPotassium [Moles/Vol]4.2 mmol/LNormal3.5-5.0[facility] Comment on above:Performed By: #### CMP ####[facility] ([facility])[address] [place] [address] VIRProtein [Mass/Vol]7.8 g/dLNormal 6.0-8.0ProPeterson Regional Medical CenterComment on above:Performed By: #### CMP ####[facility] ([facility])[address] [address] VIRSodium [Moles/Vol]141 mmol/GDdhrhn943-131WgeGrvcywHolzer Health System Comment on above:Performed By: #### CMP ####[facility] ([facility])[address] [place] [address] VIRUrea nitrogen [Mass/Vol]21 mg/dL Normal5-27ProPeterson Regional Medical CenterComment on above:Performed By: #### CMP ####[facility] ([facility], [place] [address] VIRLACTATE W/ REFLEXon 65-38-6141XECFHAT W/REFLEX1.0 mmol/LNormal0.4-2.0 [facility] SystemComment on above:Order Comment: Result did not trigger repeat Lactate,re-order if needed.Performed By: #### LACTS ####[facility] ([facility])[address] [place] [address] VIR PHOSPHORUSon 86-31-6377Wzuztttmx [Mass/Vol]6.1 mg/dLHigh2.4-4.9ProPeterson Regional Medical CenterComment on above:Performed By: #### BMP #### [facility] ([facility]) [address] [place] [address] VIRPROCALCITONINon 87-60-3878DYDAGDOCMLGHV4.13 ng/mLHigh<0.05 [facility] SystemComment on above:Order Comment: <0.50 ng/mL - Low risk of severe sepsis and/or septic shock.<2.00 ng/mL - Recommend retesting within 6-24 hours.>2.00 ng/mL - High risk of sepsis and/or septic shock.Performed By: #### BMP #### [facility] ([facility]) [address] [place] [address] VIRTROP I, HIGH SENSITIVITY 1 HOURon 98-77-1333GZSCURPG I, HIGH ULEESQABYCF98 ng/LHigh<16ProPeterson Regional Medical CenterComment on above:Order Comment: Elevations of hs-Troponin may be due to causesother than myocardial ischemia.Recommend serial hs-Troponin testing be performed.For the initial evaluation and management of chestpain patients, refer to the algorithms linked below.Emergency Patient:[email or web address]:[email or web address] By: #### BMP #### [facility] ([facility]) [address] [place] [address] VIRTROPONIN I, HIGH SENSITIVITY 0 HOURon 76-00-5202AERKTDMN I, HIGH ERNJUVNGCDK92 ng/LHigh<16ProPeterson Regional Medical CenterComment on above: Performed By: #### BMP #### [facility] ([facility]) [address] [place] [address] VIRXR CHEST 1 VWon 42-68-9214NA CHEST 1 VWXR CHEST 1 VW Single view chest History:SOB Difficulty breathing, shortness of breath Comparison: 12/03/2024 Findings: Single portable view of the chest. Right lower lung atelectasis versus pneumonia, stable. Stable cardiac mediastinal silhouette. Prior median sternotomy. Impression: No significant interval change. Finalized by Victor Hugo Kim MD on 12/04/2024 7:13 AMNormalProPeterson Regional Medical CenterB-TYPE NATRIURETIC PEPTIDEon 35-34-8661Qlbrygdishj peptide B (Bld) [Mass/Vol]196 pg/mLHigh<=100[facility] on above:Performed By: #### BNP ####[facility] ([address] [place] [address] VIRBLOOD CULTUREon 99-11-8410Tgkbpkoq identified Cx Nom (Bld)CULTURE RESULTS NO GROWTH 5 DAYSNormalProMedica Colony HospitalComment on above:Order Comment: *SIRS Criteria: (must [...] source who are improvingPerformed By: #### BC ####[facility] ([facility])[address], [place] [address] VIRBacteria identified Cx Nom (Bld)CULTURE RESULTS NO GROWTH 5 DAYSOhio Valley HospitalCommclaren oakland on above:Order Comment: *SIRS Criteria: (must display 2 without other explanation)-Temperature < 36 or >38-Pulse >90-Resp rate >20-WBC less than 4K or greater than 12KRepeat blood cultures not needed:-To document that a blood culture is a contaminant when 1 of 2 bottles is positive for a common contaminant (already listed in [facility] with the culture result)-To document clearance of gram negative bacteremia in patients with suspected urinary source who are improvingPerformed By: #### BC ####[facility] ([facility])[address], [place] [address] VIRBLOOD GAS, VENOUSon 41-68-6570TDWF,EXCESS6.0 mmol/LHigh0.0-2.0ProPeterson Regional Medical CenterComment on above:Performed By: #### VBG #### [facility] ([facility]) [address] [place] [address] VIRHCO3 (Bld) [Moles/Vol]33.9 mmol/LHigh20.0-24.0Holzer Health SystemCommclaren oakland on above:Performed By: #### VBG #### [facility] ([facility]) [address] [place] [address] VIROxygen saturation in Blood50.0 %NormalProPeterson Regional Medical CenterComment on above:Performed By: #### VBG #### [facility] ([address] [place] [address] VIRPCO2 YZAEMJ55.5 qtGjIdwb16.0-50.0[facility] Comment on above:Performed By: #### VBG #### [facility] ([address] [place] [address] VIRPH [id number] Comment on above:Performed By: #### VBG #### [facility] ([address] [place] [address] VIRPO2 [id number] Health System Comment on above:Performed By: #### VBG #### [facility] ([address] [place] [address] VIRPOC RAVINDRA'S TESTN/ANormalProPeterson Regional Medical CenterComment on above:Performed By: #### VBG #### [facility] ([address] [place] [address] VIRSAMPLE SITEN/ANormalHolzer Health SystemComment on above:Performed By: #### VBG #### [facility] ([address] [place] [address] VIRSAMPLE TYPEVENOUSNormalHolzer Health SystemComment on above:Performed By: #### VBG #### [facility] ([address] [address] VIRSOURCE OF OXYGENNCNormalHolzer Health SystemComment on above:Performed By: #### VBG #### [facility] ([address] [place] [address] VIRBLOOD GAS, VENOUSVBG BLOOD GAS, VENOUS CancelledNormal [facility] WITH AUTO DIFFERENTIALon [id number] ABSOLUTE COUNT (10*3/UL) BY AUTOMATED COUNT0.1 10*3/uLNormal0.0-0.2[facility] on above:Result Comment: This is an appended report. These results have been appended to a previously preliminary verified report. Performed By: #### CBCA #### [facility] ([address] [place] [address] VIRBASOPHILS RELATIVE PERCENT BY AUTOMATED COUNT0.8 %Normal [facility] on above:Result Comment: This is an appended report. These results have been appended to a previously preliminary verified report.Performed By: #### CBCA #### [address] [place] [address] VIRCELLAVISION ANISOCYTOSIS IN BLOOD BY LIGHT MICROSCOPY2+ NormalProMedica Memorial Hospital on above:Result Comment: This is an appended report. These results have been appended to a previously preliminary verified report.Performed By: #### CBCA #### [facility] ([address] [place] [address] VIRCELLAVISION DIFFERENTIAL TYPEAUTOMATED DIFFERENTIALCleveland Clinic Mercy Hospital on above:Result Comment: This is an appended report. These results have been appended to a previously preliminary verified report.Performed By: #### CBCA #### [facility] ([address] [place] [address] VIRCELLAVISION MICROCYTES IN BLOOD BY LIGHT MICROSCOPY2+Normal [facility] on above:Result Comment: This is an appended report. These results have been appended to a previously preliminary verified report.Performed By: #### CBCA #### [facility] ([address] [place] [address] VIRCELLAVISION RBC MORPHOLOGYReviewedNormalHolzer Health SystemCommclaren oakland on above:Result Comment: This is an appended report. These results have been appended to a previously preliminary verified report.Performed By: #### CBCA #### [facility] ([address] [address] VIREosinophils (Bld) [#/Vol]0.1 10*3/uLNormal0.0-0.4[facility] on above:Result Comment: This is an appended report. These results have been appended to a previously preliminary verified report. Performed By: #### CBCA #### [facility] ([address] [address] VIREOSINOPHILS RELATIVE PERCENT BY AUTOMATED COUNT1.3 %Normal [facility] on above:Result Comment: This is an appended report. These results have been appended to a previously preliminary verified report.Performed By: #### CBCA #### [facility] ([address] [address] VIRErythrocyte distribution width (RBC) [Ratio]19.7 %High 11.5-15Hol[facility] Health SystemCommclaren [place] on above:Performed By: #### CBCA #### [facility] ([address] [address] VIRHematocrit (Bld) [Volume fraction]31.1 %Ccm20-63JcdYxrsqlPeterson Regional Medical CenterComment on above:Performed By: #### CBCA #### [facility] ([address] [address] VIRHemoglobin (Bld) [Mass/Vol]9.3 g/dLLow11.7-15.5PKettering Health Washington TownshipCommclaren oakland on above:Performed By: #### CBCA #### [facility] ([address] [address] VIRLYMPHOCYTES ABSOLUTE COUNT (10*3/UL) BY AUTOMATED COUNT1.3 10*3/uLNormal1.0-3.5PSelect Medical [facility] [place] on above:Result Comment: This is an appended report. These results have been appended to a previously preliminary verified report.Performed By: #### CBCA #### [facility] ([address] [address] VIRLYMPHOCYTES RELATIVE PERCENT BY AUTOMATED COUNT11.2 %Normal [facility] SystemCommclaren oakland on above:Result Comment: This is an appended report. These results have been appended to a previously preliminary verified report.Performed By: #### CBCA #### [facility] ([address] [address] VIRH (RBC) [Entitic mass]19.3 hpSky67-47TrdAwsyauPeterson Regional Medical CenterComment on above:Performed By: #### CBCA #### [facility] ([address] [address] VIRMCHC (RBC) [Mass/Vol]29.7 g/iGFfn31-77UwhNpwgxvHolzer Health SystemComment on above:Performed By: #### CBCA #### [facility] ([address] [address] VIRMCV (RBC) [Entitic vol]65 tAXfu28-315HdtUqdkrmPeterson Regional Medical CenterComment on above:Performed By: #### CBCA #### [facility] ([address] [address] VIRMONOCYTES ABSOLUTE COUNT (10*3/UL) BY AUTOMATED COUNT0.7 10*3/uLNormal0.0-0.9[facility] on above:Result Comment: This is an appended report. These results have been appended to a previously preliminary verified report.Performed By: #### CBCA #### [facility] ([address] [address] VIRMONOCYTES RELATIVE PERCENT BY AUTOMATED COUNT5.9 %Normal [facility] SystemCommclaren oakland on above:Result Comment: This is an appended report. These results have been appended to a previously preliminary verified report.Performed By: #### CBCA #### [facility] ([address] [address] VIRNEUTROPHILS ABSOLUTE COUNT BY AUTOMATED COUNT9.1 10*3/uL High1.5-6.6Holzer Health SystemCommclaren oakland on above:Result Comment: This is an appended report. These results have been appended to a previously preliminary verified report.Performed By: #### CBCA #### [facility] ([address] [address] VIRNEUTROPHILS RELATIVE PERCENT BY AUTOMATED COUNT80.8 %Normal [facility] SystemCommclaren oakland on above:Result Comment: This is an appended report. These results have been appended to a previously preliminary verified report.Performed By: #### CBCA #### [facility] ([address] [address] VIRPlatelet mean volume (Bld) [Entitic vol]7.3 fLNormal7-12 [facility] SystemCommclaren [facility]land on above:Performed By: #### CBCA #### [facility] ([address] [address] VIRPlatelets (Bld) [#/Vol]391 10*3/bGBhdyrs554-484CwvOvnrfu [facility] HospitalComment on above:Performed By: #### CBCA #### [facility] ([address] [address] VIRRBC COUNT4.79 X10E12/LNormal3.8-5.2PKettering Health Washington TownshipCommclaren oakland on above:Performed By: #### CBCA #### [facility] ([address] [address] VIRWBC (Bld) [#/Vol]11.3 10*3/uLHigh4-11Hol[facility] Health SystemComment on above:Performed By: #### CBCA #### [facility] ([place] [address] [place] [address] VIRCOMPREHENSIVE METABOLIC PANELon 83-89-9537Zzwloty [Mass/Vol]3.9 g/dLNormal3.2-5.3PKettering Health Washington TownshipComment on above: Performed By: #### CMP #### [facility] ([place] [address] [place] [address] VIRALP [Catalytic activity/Vol]112 U/MOsbntq45-976PkxTgxwjxPeterson Regional Medical CenterComment on above:Performed By: #### CMP #### [place] [address] [place] [address] VIRALT [Catalytic activity/Vol]24 U/LNormal<=31PKettering Health Washington TownshipComment on above:Performed By: #### CMP #### [facility] ([place] [address] [place] [address] VIRAnion gap [Moles/Vol]5 mmol/LNormal5-15ProPeterson Regional Medical CenterComment on above:Performed By: #### CMP #### [facility] ([place] [address] [place] [address] VIRAST [Catalytic activity/Vol]24 U/LNormal<=41ProPeterson Regional Medical CenterComment on above:Performed By: #### CMP #### [facility] ([place] [address] [place] [address] VIRBilirubin [Mass/Vol]0.3 mg/dLNormal0.3-1.2PKettering Health Washington TownshipComment on above:Performed By: #### CMP #### [facility] ([place] [address] [place] [address] VIRCalcium [Mass/Vol]8.4 mg/dLLow8.5-10.5PKettering Health Washington TownshipComment on above:Performed By: #### CMP #### [facility] ([address] [place] [address] VIRChloride [Moles/Vol]101 mmol/ZUuirkn35-387BjjZbvnssPeterson Regional Medical CenterComment on above:Performed By: #### CMP #### [facility] ([address] [place] [address] VIRCO2 [Moles/Vol]34 mmol/IRrtr27-79VmbMdzhfqKettering Health Washington Township Comment on above:Performed By: #### CMP #### [facility] ([address] [address] VIRCreatinine [Mass/Vol]1.39 mg/dLHigh0.40-1.00ProPeterson Regional Medical CenterComment on above:Result Comment: METHOD TRACEABLE TO IDMS STANDARDPerformed By: #### CMP #### [facility] ([address] [address] VIRGFR/1.73 sq M.predicted among non-blacks MDRD (S/P/Bld) [Vol rate/Area]43 mL/min/{1.73_m2}Low>=60ProPeterson Regional Medical CenterComment on above:Result Comment: eGFR not reported due to non-numeric value for Creatinine. Reported eGFR is based on the CKD-EPI 2021 equation that does not use a race coefficient.Performed By: #### CMP #### [facility] ([address] [place] [address] VIRGlucose [Mass/Vol]130 mg/dXLqkf19-56YikVnwnoyPeterson Regional Medical CenterComment on above:Performed By: #### CMP #### [facility] ([address] [address] VIRPotassium [Moles/Vol]3.5 mmol/LNormal3.5-5.0ProPeterson Regional Medical CenterComment on above:Performed By: #### CMP #### [facility] ([facility]) [address] [place] [address] VIRProtein [Mass/Vol]7.7 g/dLNormal6.0-8.0ProPeterson Regional Medical CenterComment on above:Performed By: #### CMP #### [facility] ([address] [address] VIRSodium [Moles/Vol]140 mmol/QFbdyll576-474PtqUeoczs [facility] HospitalComment on above:Performed By: #### CMP #### [facility] ([address] [address] VIRUrea nitrogen [Mass/Vol]16 mg/dLNormal5-27ProPeterson Regional Medical CenterComment on above:Performed By: #### CMP #### [facility] ([address] [address] VIRCT CTA CHESTon 51-85-1859BH CTA CHESTCT CTA CHEST Clinical history: Hypoxia [...] Kai Finn MD on 12/03/2024 4:15 AMNormalProMedica Colony HospitalLACTATE W/ REFLEXon 14-83-5100ODXNWZF W/REFLEX0.8 mmol/LNormal0.4-2.0 [facility] SystemCommclaren oakland on above:Order Comment: Result did not trigger repeat Lactate, re-order if needed.Performed By: #### LACTS #### [facility] ([address] [place] [address] VIRTROP I, HIGH SENSITIVITY 1 HOURon 18-29-6439QFQXBJCZ I, HIGH SENSITIVITY7 ng/LNormal<16ProPeterson Regional Medical CenterCommclaren oakland on above: Performed By: #### [email or web address] ####[facility] ([address] [place] [address] VIRTROPONIN I, HIGH SENSITIVITY 0 HOURon 12-03-2024 TROPONIN I, HIGH SENSITIVITY8 ng/LNormal<16ProPeterson Regional Medical CenterComment on above:Performed By: #### TNIHS0 #### [facility] ([address] [place] [address] VIRXR CHEST 1 VWon 22-46-3302UL CHEST 1 VWXR CHEST 1 VW XR [...] 3:36 AMNormalProPeterson Regional Medical CenterBASI METABOLIC PANELon 48-10-7461Mmyqe gap [Moles/Vol]8 mmol/LNormal 5-15[facility] Health SystemComment on above:Performed By: #### BMP #### [facility] ([facility]) [address] [place] [address] VIRCalcium [Mass/Vol]9.0 mg/dLNormal8.5-10.5PKettering Health Washington TownshipComment on above:Performed By: #### BMP #### [facility] ([facility]) [address] [place] [address] VIRChloride [Moles/Vol]103 mmol/YWjzpmz96-559VviSwxgtpPeterson Regional Medical CenterComment on above:Performed By: #### BMP #### [facility] ([facility]) [address] [place] [address] VIRCO2 [Moles/Vol]29 mmol/MOtovzu19-01IqsLiveetKettering Health Washington TownshipComment on above:Performed By: #### BMP #### [facility] ([facility]) [address] [place] [address] VIRCreatinine [Mass/Vol]1.15 mg/dLHigh0.40-1.00Holzer Health SystemComment on above:Result Comment: METHOD TRACEABLE TO IDNY STANDARDPerformed By: #### BMP #### [facility] ([facility]) [address] [place] [address] VIRGFR/1.73 sq M.predicted among non-blacks MDRD (S/P/Bld) [Vol rate/Area]54 mL/min/{1.73_m2}Low>=60ProPeterson Regional Medical CenterComment on above: Result Comment: Reported eGFR is based on the CKD-EPI 2020 equation that does not use a race coefficient.Performed By: #### BMP #### [facility] ([facility]) [address] [place] [address] VIRGlucose [Mass/Vol]83 mg/wAPuryiy81-97JhfAzndpjPeterson Regional Medical CenterComment on above:Performed By: #### BMP #### [facility] ([facility]) [address] [place] [address] VIRPotassium [Moles/Vol]4.1 mmol/LNormal3.5-5.0ProPeterson Regional Medical CenterComment on above:Performed By: #### BMP #### [facility] ([facility]) [address] [place] [address] VIRSodium [Moles/Vol]140 mmol/NHpccsk709-134CczTxgpss [facility]remont HospitalComment on above:Performed By: #### BMP #### [facility] ([facility]) [address] [place] [address] VIRUrea nitrogen [Mass/Vol]15 mg/dLNormal5-27ProPeterson Regional Medical CenterComment on above:Performed By: #### BMP #### [facility] ([facility]) [address] [place] [address] VIRXR KNEE RT 3 VWSon 17-40-6563XU KNEE RT 3 VWSXR KNEE RT 3 [...] by Kai Finn MD on 11/29/2024 2:28 PMNormalProWilbarger General Hospital WITH AUTO DIFFERENTIALon 29-37-4854Evos form neutrophils/100 WBC (Bld)4 %NormalJenkins County Medical Center PPGComment on above:Result Comment: This is an appended report. These results have been appended to a previously preliminary verified report.Performed By: #### CBCA #### [facility] ([facility]) [address] [place] [address] VIRCELLAVISION BASOPHILS ABSOLUTE COUNT (10*3/UL) BY MANUAL COUNT0.1 10*3/uLNormal0.0-0.2PProMedica Fostoria [facility]ulatory PPGComment on above: Result Comment: This is an appended report. These results have been appended to a previously preliminary verified report.Performed By: #### CBCA #### [facility] ([facility]) [address] [place] [address] VIRCELLAVISION BASOPHILS RELATIVE PERCENT BY MANUAL COUNT1 % NormalPremier Health [facility] PPGComment on above:Result Comment: This is an appended report. These results have been appended to a previously preliminary verified report.Performed By: #### CBCA #### [facility] ([facility]) [address] [place] [address] VIRCELLAVISION DIFFERENTIAL TYPECELLAVISION DIFFERENTIALNormal [facility] PPGComment on above:Result Comment: This is an appended report. These results have been appended to a previously preliminary verified report.Performed By: #### CBCA #### [facility] ([facility]) [address] [place] [address] VIRCELLAVISION EOSINOPHILS ABSOLUTE COUNT (10*3/UL) BY MANUAL COUNT0.2 10*3/uLNormal0.0-0.4[facility] PPGComment on above: Result Comment: This is an appended report. These results have been appended to a previously preliminary verified report.Performed By: #### CBCA #### [facility] ([facility]) [address] [place] [address] VIRCELLAVISION EOSINOPHILS PERCENT BY MANUAL COUNT2 %Normal [facility] PPGComment on above:Result Comment: This is an appended report. These results have been appended to a previously preliminary verified report.Performed By: #### CBCA #### [facility] ([facility]) [address] [place] [address] VIRCELLAVISION LYMPHOCYTES ABSOLUTE COUNT (10*3/UL) BY MANUAL COUNT1.9 10*3/uLNormal1.0-3.5PProMedica Fostoria [facility] Hospital Ambulatory PPGComment on above: Result Comment: This is an appended report. These results have been appended to a previously preliminary verified report.Performed By: #### CBCA #### [facility] ([facility]) [address] [place] [address] VIRCELLAVISION LYMPHOCYTES RELATIVE PERCENT BY MANUAL COUNT21 % [facility] PPGComment on above:Result Comment: This is an appended report. These results have been appended to a previously preliminary verified report.Performed By: #### CBCA #### [facility] ([facility]) [address] [place] [address] VIRCELLAVISION MONOCYTES ABSOLUTE COUNT (10*3/UL) IN BLOOD BY MANUAL COUNT0.2 10*3/uLNormal0.0-0.9[facility] PPGComment on above:Result Comment: This is an appended report. These results have been appended to a previously preliminary verified report.Performed By: #### CBCA #### [facility] ([facility]) [address] [place] [address] VIRCELLAVISION MONOCYTES RELATIVE PERCENT BY MANUAL COUNT2 % NormalPremier Health Miami [facility] Ambulatory PPGComment on above:Result Comment: This is an appended report. These results have been appended to a previously preliminary verified report.Performed By: #### CBCA #### [facility] ([facility]) [address] [place] [address] VIRCELLAVISION NEUTROPHILS ABSOLUTE COUNT BY MANUAL COUNT6.8 10*3/uLHigh1.5-6.6[facility] PPGComment on above:Result Comment: This is an appended report. These results have been appended to a previously preliminary verified report.Performed By: #### CBCA #### [facility] ([facility]) [address] [place] [address] VIRCELLAVISION NEUTROPHILS RELATIVE PERCENT BY MANUAL COUNT70 % NormalPremier Health Miami [facility] Ambulatory PPGComment on above:Result Comment: This is an appended report. These results have been appended to a previously preliminary verified report.Performed By: #### CBCA #### [facility] ([facility]) [address] [place] [address] VIRCELLAVISION RBC MORPHOLOGYReviewedNormalPremier Health [facility] PPGComment on above:Result Comment: This is an appended report. These results have been appended to a previously preliminary verified report. Performed By: #### CBCA #### [facility] ([facility]) [address] [place] [address] VIRErythrocyte distribution width (RBC) [Ratio]20.4 %High 11.5-15[facility] PPGComment on above:Performed By: #### CBCA #### [facility] ([facility]) [address] [place] [address] VIRHematocrit (Bld) [Volume fraction]32.9 %Xyd06-07ZuhHbttruPremier Health [facility]ulatory PPGComment on above:Performed By: #### CBCA #### [facility] ([facility]) [address] [place] [address] VIRHemoglobin (Bld) [Mass/Vol]10.0 g/dLLow11.7-15.5PProMedica [facility] Ambulatory PPGComment on above:Performed By: #### CBCA #### [facility] ([facility]) [address] [place] [address] VIRMCH (RBC) [Entitic mass]21.2 fcFnp59-40LmrGbwaff Hospital Ambulatory PPGComment on above:Performed By: #### CBCA #### [facility] ([facility]) [address] [place] [address] VIRMCHC (RBC) [Mass/Vol]30.4 g/iDXku82-21KllMifmgb Hospital Ambulatory PPGComment on above:Performed By: #### CBCA #### [facility] ([facility]) [address] [place] [address] VIRMCV (RBC) [Entitic vol]70 bVGoh39-956VkaWoxerz Hospital Ambulatory PPGComment on above:Performed By: #### CBCA #### [facility] ([facility]) [address] [place] [address] VIRPlatelet mean volume (Bld) [Entitic vol]8.2 fLNormal7-12 [facility] Ambulatory PPGComment on above:Performed By: #### CBCA #### [facility] ([facility]) [address] [place] [address] VIRPlatelets (Bld) [#/Vol]334 10*3/oINctyab122-634TaeUvvejf Hospital Ambulatory PPGComment on above:Performed By: #### CBCA #### [facility] ([facility]) [address] [place] [address] VIRRBC COUNT4.73 X10E12/LNormal3.8-5.2PProMedica Fostoria [facility] Ambulatory PPGComment on above:Performed By: #### CBCA #### [facility] ([facility]) [address] [place] [address] VIRWBC (Bld) [#/Vol]9.1 10*3/uLNormal4-11[facility] PPGComment on above:Performed By: #### CBCA #### [facility] ([facility]) [address] [place] [address] VIRCBC auto differentialon 72-98-1298Mtnz form neutrophils/100 WBC (Bld)4 %[facility] SystemComment on above:This is an appended report. These results have been appended to a previously preliminary verified report. Basophils (Bld) [#/Vol]0.1 10*3/uL0.0 - 0.2 10*3/uLProMediHocking Valley Community Hospital System Comment on above:This is an appended report. These results have been appended to a previously preliminary verified report.Basophils/100 WBC (Bld)1 %[facility] HospitalComment on above:This is an appended report. These results have been appended to a previously preliminary verified report.Differential cell count method Nom (Bld)CELLAVISION DIFFERENTIALMemorial HospitalCommclaren oakland on above:This is an appended report. These results have been appended to a previously preliminary verified report.Eosinophils (Bld) [#/Vol]0.2 10*3/uL0.0 - 0.4 10*3/uLMemorial HospitalComment on above:This is an appended report. These results have been appended to a previously preliminary verified report. Eosinophils/100 WBC (Bld)2 %[facility] HospitalCommclaren [place]land on above:This is an appended report. These results have been appended to a previously preliminary verified report.Erythrocyte distribution width (RBC) [Ratio]20.4 %High11.5 - 15 %[facility]orial HospitalHematocrit (Bld) [Volume fraction]32.9 %Low35 - 47 % Memorial HospitalHemoglobin (Bld) [Mass/Vol]10 g/dLLow11.7 - 15.5 g/dL [facility] HospitalInterpretation and review of laboratory resultsAbnormal Memorial HospitalLymphocytes (Bld) [#/Vol]1.9 10*3/uL1.0 - 3.5 10*3/uL [facility] HospitalCommclaren [place] on above:This is an appended report. These results have been appended to a previously preliminary verified report.MCH (RBC) [Entitic mass]21.2 pgLow27 - 34 [facility] HospitalMCHC (RBC) [Mass/Vol] 30.4 g/dLLow32 - 36 g/dLMemorial HospitalMCV (RBC) [Entitic vol]70 fLLow80 - 100 [facility] CenterMonocytes (Bld) [#/Vol]0.2 10*3/uL0.0 - 0.9 10*3/uLMemorial HospitalCommclaren oakland on above:This is an appended report. These results have been appended to a previously preliminary verified report. Monocytes/100 WBC (Bld)2 %[facility] HospitalCommclaren [facility] on above:This is an appended report. These results have been appended to a previously preliminary verified report.Neutrophils (Bld) [#/Vol]6.8 10*3/uLHigh1.5 - 6.6 10*3/uL [facility] SystemComment on above:This is an appended report. These results have been appended to a previously preliminary verified report. Neutrophils/100 WBC (Bld)70 %[facility] HospitalComment on above:This is an appended report. These results have been appended to a previously preliminary verified report.Platelet mean volume (Bld) [Entitic vol]8.2 fL7 - 12 [facility] Medical CenterPlatelets (Bld) [#/Vol]334 10*3/uLBarnesville Hospital SystemRBC (Bld) [#/Vol]4.73 10*6/uLMemorial HospitalRBC (Bld) [#/Vol]ReviewedMemorial HospitalComment on above:This is an appended report. These results have been appended to a previously preliminary verified report.Variant lymphocytes/100 WBC (Bld)21 %[facility] HospitalComment on above:This is an appended report. These results have been appended to a previously preliminary verified report.WBC LM Ql (Sput)9.1PForbes HospitalCOMPREHENSIVE METABOLIC PANELon 76-06-5229Mnxkxvo [Mass/Vol]4.4 g/dLNormal 3.2-5.3PProMedica Fostoria [facility] Ambulatory PPGComment on above:Performed By: #### CMP #### [facility] ([facility]) [address] [place] [address] VIRALP [Catalytic activity/Vol]100 U/HLsekxn36-327KboTnxmky Hospital Ambulatory PPGComment on above:Performed By: #### CMP #### [facility] ([facility]) [address] [place] [address] VIRALT [Catalytic activity/Vol]33 U/LHigh<=31PProMedica Fostoria Community Hospital Ambulatory PPGComment on above:Performed By: #### CMP #### [facility] LABORATORY ([facility]) [address] [place] [address] VIRAnion gap [Moles/Vol]7 mmol/LNormal5-15[facility] Ambulatory PPGComment on above:Performed By: #### CMP #### [facility] ([facility]) [address] [place] [address] VIRAST [Catalytic activity/Vol]22 U/LNormal<=41Pro[facility] Ambulatory PPGComment on above:Performed By: #### CMP #### [facility] ([facility]) [address] [place] [address] VIRBilirubin [Mass/Vol]0.3 mg/dLNormal0.3-1.2PProMedica [facility] Ambulatory PPGComment on above:Performed By: #### CMP #### [facility] ([facility]) [address] [place] [address] VIRCalcium [Mass/Vol]9.3 mg/dLNormal8.5-10.5PProMedica [facility] Ambulatory PPGComment on above:Performed By: #### CMP #### [facility] ([facility]) [address] [place] [address] VIRChloride [Moles/Vol]102 mmol/AXemnfx97-204YmqHksvoo [facility] Ambulatory PPGComment on above:Performed By: #### CMP #### [facility] ([facility]) [address] [place] [address] VIRCO2 [Moles/Vol]34 mmol/YCjvg27-41OozNfwhbn Hospital Ambulatory PPGComment on above:Performed By: #### CMP #### [facility] ([facility]) [address] [place] [address] VIRCreatinine [Mass/Vol]1.27 mg/dLHigh0.40-1.00[facility] Ambulatory PPGComment on above:Result Comment: METHOD TRACEABLE TO IDMS STANDARDPerformed By: #### CMP #### [facility] ([facility]) [address] [place] [address] VIRGFR/1.73 sq M.predicted among non-blacks MDRD (S/P/Bld) [Vol rate/Area]48 mL/min/{1.73_m2}Low>=60[facility] Ambulatory PPGComment on above:Result Comment: Reported eGFR is based on the CKD-EPI 2020 equation that does not use a race coefficient.Performed By: #### CMP #### [facility] ([facility]) [address] [place] [address] VIRGlucose [Mass/Vol]114 mg/mRRphj21-63CbsIlyqiv Hospital Ambulatory PPGComment on above:Performed By: #### CMP #### [facility] ([facility]) [address] [place] [address] VIRPotassium [Moles/Vol]4.4 mmol/LNormal3.5-5.0[facility] Ambulatory PPGComment on above:Performed By: #### CMP #### [facility] ([facility]) [address] [place] [address] VIRProtein [Mass/Vol]7.6 g/dLNormal6.0-8.0[facility] Ambulatory PPGComment on above:Performed By: #### CMP #### [facility] ([facility]) [address] [place] [address] VIRSodium [Moles/Vol]143 mmol/AYnbwtd929-679TkvMswlad Hospital Ambulatory PPGComment on above:Performed By: #### CMP #### [facility] ([facility]) [address] [place] [address] VIRUrea nitrogen [Mass/Vol]19 mg/dLNormal5-27[facility] Ambulatory PPGComment on above:Performed By: #### CMP #### [facility] ([facility]) [address] [place] [address] VIRComprehensive metabolic panelon 05-90-4083Kuawscz [Mass/Vol] 4.4 g/dL3.2 - 5.3 g/dLBarnesville Hospital SystemALP [Catalytic activity/Vol]100 U/L 39 - 130 U/LProMedOhioHealth Mansfield Hospital SystemALT No additional P-5'-P [Catalytic activity/Vol]33 U/LHighNINF - 31 U/[facility] SystemAnion gap [Moles/Vol] 7 mmol/L5 - 15 mmol/[facility] Health SystemAST [Catalytic activity/Vol]22 U/L NINF - 41 U/[facility] SystemBilirubin [Mass/Vol]0.3 mg/dL0.3 - 1.2 mg/dL [facility] SystemCalcium [Mass/Vol]9.3 mg/dL8.5 - 10.5 mg/dLMemorial HospitalChloride [Moles/Vol]102 mmol/L98 - 109 mmol/[facility] SystemCO2 [Moles/Vol]34 mmol/LHigh22 - 32 mmol/[facility] Creatinine [Mass/Vol]1.27 mg/dLHigh0.40 - 1.00 mg/dLMemorial Hospital Comment on above:METHOD TRACEABLE TO IDMS STANDARDEGFR Non-Race Wqhdwjzgi68FloDickenson Community HospitalComment on above:Reported eGFR is based on the CKD-EPI 2020 equation that does not use a race coefficient. Glucose [Mass/Vol]114 mg/zCCgha83 - 99 mg/dLMemorial Hospital Interpretation and review of laboratory resultsAbnoLevine Children's Hospital Potassium [Moles/Vol]4.4 mmol/L3.5 - 5.0 mmol/[facility] SystemProtein [Mass/Vol]7.6 g/dL6.0 - 8.0 g/dLCentral Harnett Hospitalodium [Moles/Vol]143 mmol/L134 - 146 mmol/[facility] SystemUrea nitrogen [Mass/Vol]19 mg/dL5 - 27 mg/dLSouthwood Psychiatric HospitalHEMOGLOBIN A1Con 23-17-0619Ngodtul [Mass/Vol]134 mg/dLElastar Community Hospital Ambulatory PPG Comment on above:Performed By: #### HA1C #### [facility] ([facility]) [address] [place] [address] BMBTuQ5u (Bld) [Mass fraction]6.3 %High4.4-5.6[facility] Ambulatory PPGComment on above:Result Comment: ADA Guidelines Result HgbA1c Normal : less than 5.7 % Prediabetes : 5.7 % to 6.4 % Diabetes : > 6.4 % Use with caution in patients with abnormal hemoglobin variants as the half-life of red blood cells and in vivo glycation rates are affected.Performed By: #### HA1C #### [facility] ([facility]) [address] [place] [address] VIRCBC AND AUTO DIFFon 55-23-5826PQSAHFBG BASOPHIL0.1 X10E9/L Normal0.0-0.2Pro[facility]ica Medina HospitalComment on above:Performed By: #### KAIDEN 2131-12, BMP, CBCA #### [facility] ([id number]) [address] [address] [place], [place] [address]GKDFHFKW NEUTROPHIL7.1 X10E9/LHigh1.5-6.6ProParma Community General HospitalComment on above:Performed By: #### KAIDEN 2131-12, BMP, CBCA #### [facility] ([id number]) [address] [address] [place], [place] [address]Zuxgprkvp/100 WBC (Bld)0.6 %NormalSt. Rita's Hospital Comment on above:Performed By: #### KAIDEN 2131-12, BMP, CBCA #### [facility] ([id number]) [address], [address] [place], [place] [address]Rnfnggnvcvy (Bld) [#/Vol]0.1 10*3/uLNormal0.0-0.4ProParma Community General HospitalComment on above:Performed By: #### KAIDEN 2131-12, BMP, CBCA #### [facility] ([id number]) [address] [address] [place], [place] [address]Xyltujasjen/100 WBC (Bld)1.0 %NormalSt. Rita's Hospital Comment on above:Performed By: #### KAIDEN, 2131-12, BMP, CBCA #### [facility] ([id number]) [address] [place], [place] [address]Sllrdyciwjk distribution width (RBC) [Ratio]20.7 %High11.5-15.0 [facility] Mobile HospitalComment on above:Performed By: #### KAIDEN, 2131-12, BMP, CBCA #### [facility] ([id number]) [address], [address] [place], [place] [address]Vizpwipgjn (Bld) [Volume fraction]37.2 %Mnkequ00-76KgzZfmcbdParma Community General HospitalComment on above:Performed By: #### KAIDEN, 2131-12, BMP, CBCA #### [facility] ([id number]) [address], [address] [place], [place] [address]Cgzemqhgvp (Bld) [Mass/Vol]11.7 g/pOJbfmlx66.7-15.5ProMedFlower Hospital HospitalComment on above:Performed By: #### KAIDEN 2131-12, BMP, CBCA #### [facility] ([id number]) [address], [address] [place], [place] [address]Henofzaqnlp (Bld) [#/Vol]1.6 10*3/uLNormal1.0-3.5ProMedFlower Hospital HospitalComment on above:Performed By: #### KAIDEN, 2131-12, BMP, CBCA #### [facility] ([id number]) [address], [address] [place], [place] [address]Mhpnupclkku/100 WBC (Bld)17.6 %NormalSt. Rita's Hospital Comment on above:Performed By: #### THYDasha, 2131-12, BMP, CBCA #### [facility] ([id number]) [address], [address] [place], [place] [address]WSG (RBC) [Entitic mass]23.0 osFfg72-40PgjSmxsapSt. Rita's Hospital Comment on above:Performed By: #### THYDasha, 2131-12, BMP, CBCA #### [facility] ([id number]) [address], [address] [place], [place] [address]TVUS (RBC) [Mass/Vol]31.4 g/hVVej96-10GbzOmtyvsSt. Rita's Hospital Comment on above:Performed By: #### THYDasha, 2131-12, BMP, CBCA #### [facility] ([id number]) [address], [address] [place], [place] [address]IDZ (RBC) [Entitic vol]73 pXVvi86-137LewTtttkbSt. Rita's Hospital Comment on above:Performed By: #### KAIDEN, 2131-12, BMP, CBCA #### [facility] ([id number]) [address], [address] [place], [place] [address]Okuyzuoht (Bld) [#/Vol]0.4 10*3/uLNormal0-0.9St. Rita's HospitalComment on above:Performed By: #### THYDasha, 2131-12, BMP, CBCA #### [facility] ([id number]) [address], [address] [place], [place] [address]Hixfuygwx/100 WBC (Bld)4.2 %[facility] Comment on above:Performed By: #### THYR, 2131-12, BMP, CBCA #### [facility] ([id number]) [address], [address] [place], [place] [address]Jpjzfhazrtu/100 WBC (Bld)76.6 %[facility] Comment on above:Performed By: #### THYR, 2131-12, BMP, CBCA #### [facility] ([id number]) [address], [address] [place], [place] [address]Gpjdcijw mean volume (Bld) [Entitic vol]8.2 fLNormal7-12 [facility] HospitalComment on above:Performed By: #### KAIDEN 2131-12, BMP, CBCA #### [facility] ([id number]) [address], [address] [place], [place] [address]Qzmyxianr (Bld) [#/Vol]396 10*3/cVLdrorb495-715XmdPptezv Mobile HospitalComment on above:Performed By: #### KAIDEN 2131-12, BMP, CBCA #### [facility] ([id number]) [address], [address] [place], [place] [address]IFB COUNT5.09 X10E12/LNormal3.80-5.20ProGlenbeigh Hospitalca [facility] Comment on above:Performed By: #### KAIDEN 2131-12, KEKE, CBCA #### [facility] ([id number]) [address], [address] [place], [place] [address]WRD (Bld) [#/Vol]9.3 10*3/uLNormal4.0-11.0ProGlenbeigh Hospitalca Mobile HospitalComment on above:Performed By: #### KAIDEN 2131-12, BMP, CBCA #### [facility] ([id number]) [address], [address] [place], [place] [address]UBYDMECOBXZPW METABOLIC PANELon 91-24-5905Tlstyrf [Mass/Vol]4.1 g/dLNormal3.2-5.3[facility] Mobile HospitalComment on above:Performed By: #### KAIDEN 2131-12, BMP, CBCA #### [facility] ([id number]) [address] [place], [place] [address]XXR [Catalytic activity/Vol]106 U/NOfmntt16-210HvyUjvgjf Miller HospitalComment on above:Performed By: #### KAIDEN 2131-12, BMP, CBCA #### [facility] ([id number]) [address], [address] [place], [place] [address]MCZ [Catalytic activity/Vol]30 U/LNormal0-31[facility] HospitalComment on above:Performed By: #### KAIDEN 2131-12, BMP, CBCA #### [facility] ([id number]) [address], [address] [place], [place] [address]Tmfqi gap [Moles/Vol]10 mmol/LNormal5-15[facility] HospitalComment on above:Performed By: #### KAIDEN 2131-12, BMP, CBCA #### [facility] ([id number]) [address], [address] [place], [place] [address]WHE [Catalytic activity/Vol]30 U/LNormal0-41[facility] HospitalComment on above:Performed By: #### KAIDEN 2131-12, BMP, CBCA #### [facility] ([id number]) [address] [place], [place] [address]Iokcwgeks [Mass/Vol]0.3 mg/dLNormal0.3-1.2[facility] HospitalComment on above:Performed By: #### KAIDEN 2131-12, BMP, CBCA #### [facility] ([id number]) [address] [place], [place] [address]Pnupief [Mass/Vol]9.6 mg/dLNormal8.5-10.5Pro[facility] HospitalComment on above:Performed By: #### KAIDEN 2131-12, BMP, CBCA #### [facility] ([id number]) [address] [place], [place] [address]Pryotqaa [Moles/Vol]105 mmol/CYidfey07-789JtzRyacwu Miller HospitalComment on above:Performed By: #### KAIDEN 2131-12, BMP, CBCA #### [facility] ([id number]) [address] [place], [place] [address]TR9 [Moles/Vol]25 mmol/FTjyukn65-69XzpPzrftwTriHealth Good Samaritan Hospital Comment on above:Performed By: #### KAIDEN 2131-12, ANNA DAVIES #### [facility] ([id number]) [address], [address] [place], [place] [address]Heyojfdswx [Mass/Vol]1.14 mg/dLHigh0.40-1.00ProParma Community General HospitalComment on above:Result Comment: METHOD TRACEABLE TO IDMS STANDARD Performed By: #### KAIDEN 2131-12, ANNA DAVIES #### [facility] ([id number]) [address] [place], [place] [address]LQM/1.73 sq M.predicted among non-blacks MDRD (S/P/Bld) [Vol rate/Area]54 mL/min/{1.73_m2}Low>59ProParma Community General HospitalComment on above: Result Comment: Reported eGFR is based on the CKD-EPI 2020 equation that does not use a race coefficient.Performed By: #### KAIDEN 2131-12, ANNA DAVIES #### [facility] ([id number]) [address] [address] [place], [place] [address]Kyibecb [Mass/Vol]144 mg/gDMnzp96-79AedRuwfpdSt. Rita's Hospital Comment on above:Performed By: #### KAIDEN 2131-12, ANNA DAVIES #### [facility] ([id number]) [address] [place], [place] [address]Ynvygnubi [Moles/Vol]3.9 mmol/LNormal3.5-5.0ProParma Community General HospitalComment on above:Performed By: #### KAIDEN 2131-12, KEKE, CBCMindi #### [facility] ([id number]) [address] [place], [place] [address]Dahxcjo [Mass/Vol]7.5 g/dLNormal6.0-8.0[facility] Comment on above:Performed By: #### KAIDEN 2131-12KEKE CBCMindi #### [facility] ([id number]) [address], [facility] [address] [place], [place] [address]Svldyo [Moles/Vol]140 mmol/VKuiecj787-936UpbNxvype [place] HospitalComment on above:Performed By: #### KAIDEN 2131-12, KEKE, CBCA #### [facility] ([id number]) [address], [facility] [address] [place], [place] [address]Ldhl nitrogen [Mass/Vol]11 mg/dLNormal5-27ProParma Community General HospitalComment on above:Performed By: #### KAIDEN 2131-12, KEKE, CBCA #### [facility] ([id number]) [address], [facility] [address] [place], [place] [address]FEB A1C (GLYCO-HGB)on 87-36-9221Jgpglli [Mass/Vol]140 mg/dL NormalProParma Community General HospitalComment on above:Performed By: #### KAIDEN 2131-12, KEKE, CBCA #### [facility] ([id number]) [address], [facility] [address] [place], [place] [address]ZsS7n (Bld) [Mass fraction]6.5 %High4.4-5.6ProParma Community General HospitalComment on above:Result Comment: NOTE ADA Guidelines Result HgbA1c Normal : less than 5.7 % Prediabetes : 5.7 % to 6.4 % Diabetes : > 6.4 % Use with caution in patients with abnormal hemoglobin variants as the half-life of red blood cells and in vivo glycation rates are affected.Performed By: #### KAIDEN 2131-12, KEKE, CBCA #### [facility] ([id number]) [address] [place] [address]Jusit 1996 panelon 44-06-6584Gtatcunwgjo [Mass/Vol]188 mg/dL Bstbpn424-296EktEelzqz [place] HospitalComment on above:Performed By: ###Fabi RICHEY 2131-12, BMP, CBCA #### [facility] ([id number]) [address] [place], [place] [address]Nnhanjrjdid in HDL [Mass/Vol]33 mg/dLLow>39[facility] HospitalComment on above:Result Comment: HDL <40 mg/dL - High Risk HDL > or = 40mg/dL- Desirable HDL >60 mg/dL - Negative Risk Performed By: ###Fabi RICHEY, 2131-12, BMP, CBCA #### [facility] ([id number]) [address] [place], [place] [address]Qayosefocdd in LDL [Mass/Vol]118 mg/dLNormal<130ProOhiohealth O[facility] HospitalComment on above:Result Comment: LDL <100 mg/dL - Desirable LDL >160 mg/dL - High Risk Performed By: #### KAIDEN, 2131-12, BMP, CBCA #### [facility] ([id number]) [address] [place], [place] [address]Jblsnnekccd in VLDL [Mass/Vol]37 mg/dLHigh0-30ProOhiohealth O'Bleness Hospital HospitalComment on above:Performed By: ###Fabi RICHEY, 2131-12, BMP, CBCA #### [facility] ([id number]) [address] [place], [place] [address]MTWRVXNLACA:HDL5.7High1.0-5.0ProGlenbeigh Hospitalca Mobile HospitalComment on above:Performed By: #### KAIDEN 2131-12, BMP, CBCA #### [facility] ([id number]) [address] [place], [place] [address]Nieeatzsfyqd [Mass/Vol]185 mg/gYZvsm87-894YoyXlvuvi Mobile HospitalComment on above:Performed By: #### KAIDEN, 2131-12, BMP, CBCA #### [facility] ([id number]) [address] [place], [place] [address]HJPTBZP B12on 57-89-7706Gqwgwaytl (Vitamin B12) [Mass/Vol]1244 pg/sOAdnt967-605DhxOykzub [place] HospitalComment on above:Performed By: #### KAIDEN 2131-12, BMP, CBCA #### [facility] ([id number]) [address] [place], [place] [address]AGI AND AUTO DIFFon 52-55-8445YPFBMLAI BASOPHIL0.1 X10E9/LNormal 0.0-0.2[facility] Hospital HospitalComment on above:Performed By: #### XENIA, 257-8, HAMagaly, 2088-04, CBCA #### [facility] ([id number]) [address] [place], [place] [address]DRXLNFTG NEUTROPHIL8.1 X10E9/LHigh1.5-6.6ProGlenbeigh Hospitalca Mobile HospitalComment on above:Performed By: #### XENIA, 257-8, HA1C, 2088-04, CBCA #### [facility] ([id number]) [address] [place], [place] [address]Xhygkklzt/100 WBC (Bld)0.7 %NormalProOhiohealth O'Bleness Hospital Hospital Comment on above:Performed By: #### XENIA, 2571-8, HA1C, 2088-04, CBCA #### [facility] ([id number]) [address], [address] [place], [place] [address]Kaxmviqijou (Bld) [#/Vol]0.2 10*3/uLNormal0.0-0.4[facility] HospitalComment on above:Performed By: #### XENIA, 2570-11, , 2088-04, CBCA #### [facility] ([id number]) [address] [place], [place] [address]Kobggmqptgs/100 WBC (Bld)1.4 %NormalProGlenbeigh Hospitalca Mobile Hospital Comment on above:Performed By: #### XENIA, 2570-11, , 2088-04, CBCA #### [facility] ([id number]) [address] [place], [place] [address]Dfvcfspjckk distribution width (RBC) [Ratio]19.2 %High11.5-15.0 [facility] HospitalComment on above:Performed By: #### XENIA, 2570-11, , 2088-04, CBCA #### [facility] ([id number]) [address], [address] [place], [place] [address]Jzheljuopr (Bld) [Volume fraction]31.0 %Oaw45-26UasWaebuu Mobile HospitalComment on above:Performed By: #### XENIA, 2570-11, , 2088-04, CBCA #### [facility] ([id number]) [address] [place], [place] [address]Ahcujpgmhn (Bld) [Mass/Vol]9.2 g/dLLow11.7-15.5[facility] HospitalComment on above:Performed By: #### XENIA, 2570-11, , 2088-04, CBCA #### [facility] ([id number]) [address] [place], [place] [address]Zstpezcszlu (Bld) [#/Vol]2.2 10*3/uLNormal1.0-3.5PTriHealth Good Samaritan HospitalComment on above:Performed By: #### XENIA, 8, HA1C, 2088-04, CBCA #### [facility] ([id number]) [address], [facility] [address] [place], [place] [address]Jedkjzzvtav/100 WBC (Bld)19.8 %NormalSt. Rita's Hospital Comment on above:Performed By: #### XENIA, 8, HAMagaly, 2088-04, CBCA #### [facility] ([id number]) [address], [address] [address]XND (RBC) [Entitic mass]21.8 zqIwo15-58OreJyncgfSt. Rita's Hospital Comment on above:Performed By: #### XENIA, 8, HA1C, 2088-04, CBCA #### [facility] ([id number]) [address], [address] [address]XTIB (RBC) [Mass/Vol]29.8 g/wPTwc37-30LdcGjqzkfSt. Rita's Hospital Comment on above:Performed By: #### XENIA, 8, HA1C, 2088-04, CBCA #### [facility] ([id number]) [address] [address]MXA (RBC) [Entitic vol]73 eXInx61-817CfrMkmxztSt. Rita's Hospital Comment on above:Performed By: #### XENIA, 8, HA1C, 2088-04, CBCA #### [facility] ([id number]) [address], [address] [address]Vmiacdfpp (Bld) [#/Vol]0.4 10*3/uLNormal0-0.9St. Rita's HospitalComment on above:Performed By: #### XENIA, 257-8, HA1C, 2088-04, CBCA #### [facility] ([id number]) [address], [address] [place], [place] [address]Pidugyrtr/100 WBC (Bld)4.0 %NormalSt. Rita's Hospital Comment on above:Performed By: #### CMP, 2570-8, HA1C, 2088-04, CBCA #### [facility] ([id number]) [address], [address] [place], [place] [address]Fepwocsjrlb/100 WBC (Bld)74.1 %[facility] Comment on above:Performed By: #### CMP, 2570-8, HA, 2088-04, CBCA #### [facility] ([id number]) [address], [address] [place], [place] [address]Uyraaoeh mean volume (Bld) [Entitic vol]8.[address] [facility] HospitalComment on above:Performed By: #### CMP, 8, HA1C, 2088-04, CBCA #### [facility] ([id number]) [address], [address] [place], [place] [address]Gqoqighgu (Bld) [#/Vol]412 10*3/xTSrfckm688-845RsfYvaxvf [place] HospitalComment on above:Performed By: #### CMP, 2570-8, HA, 2088-04, CBCA #### [facility] ([id number]) [address], [address] [place], [place] [address]CTY COUNT4.24 X10E12/LNormal3.80-5.20[facility] Comment on above:Performed By: #### CMP, 2570-8, HA1C, 2088-04, CBCA #### [facility] ([id number]) [address], [address] [place], [place] [address]HWN (Bld) [#/Vol]11.0 10*3/uLNormal4.0-11.0St. Rita's HospitalComment on above:Performed By: #### CMP, 2571-8, HA1C, 2089-1, CBCA #### [facility] ([id number]) [address], [address] [place], [place] [address]QDF auto differentialon [id number] (Bld) [#/Vol]0.1 10*3/uLBarnesville Hospital SystemBasophils/100 WBC (Bld)0.7 %[facility] HospitalEosinophils (Bld) [#/Vol]0.2 10*3/uLMemorial HospitalEosinophils/100 WBC (Bld)1.4 %[facility] HospitalErythrocyte distribution width (RBC) [Ratio]19.2 %High11.5 - 15.0 %[facility] HospitalHematocrit (Bld) [Volume fraction]31 %Low35 - 47 %[facility] HospitalHemoglobin (Bld) [Mass/Vol]9.2 g/dLLow11.7 - 15.5 g/dLMemorial HospitalInterpretation and review of laboratory resultsAbnormalMemorial HospitalLymphocytes (Bld) [#/Vol]2.2 10*3/uLMemorial HospitalLymphocytes/100 WBC (Bld)19.8 %[facility] HospitalMCH (RBC) [Entitic mass]21.8 pgLow27 - 34 pgPUniversity Hospitals Parma Medical CenterMCHC (RBC) [Mass/Vol]29.8 g/dLLow32 - 36 g/dLMemorial HospitalMCV (RBC) [Entitic vol]73 fLLow80 - 100 [facility] CenterMonocytes (Bld) [#/Vol] 0.4 10*3/uLMemorial HospitalMonocytes/100 WBC (Bld)4 %[facility]orial HospitalNeutrophils (Bld) [#/Vol]8.1 10*3/uLLourdes Counseling Center System Neutrophils/100 WBC (Bld)74.1 %[facility] SystemPlatelet mean volume (Bld) [Entitic vol]8 fL7 - 12 fLPLake County Memorial Hospital - West SystemPlatelets (Bld) [#/Vol]412 10*3/uLBarnesville Hospital SystemRBC (Bld) [#/Vol]4.24 10*6/[facility] SystemWBC corrected for nucl RBC Auto (Bld) [#/Vol]11[facility] ProMFayette County Memorial HospitalCOMPREHENSIVE METABOLIC PANELon [id number] [Mass/Vol]4.0 g/dLNormal3.2-5.3PMercy Memorial Hospital HospitalComment on above: Performed By: #### KAIDEN, 2131-12, BMP, CBCA #### [facility] ([id number]) [address], [address] [place], [place] [address]VAH [Catalytic activity/Vol]94 U/IBsfpbk84-326WmvXrswra [place] HospitalComment on above:Performed By: #### KAIDEN, 2131-12, BMP, CBCA #### [facility] ([id number]) [address], [address] [place], [place] [address]NVU [Catalytic activity/Vol]13 U/LNormal0-31PMercy Memorial Hospital HospitalComment on above:Performed By: #### THYR, 2131-12, BMP, CBCA #### [facility] ([id number]) [address], [address] [place], [place] [address]Tybzb gap [Moles/Vol]6 mmol/LNormal5-15ProOhio[facility] Comment on above:Performed By: #### THYR, 2131-12, BMP, CBCA #### [facility] ([id number]) [address], [address] [place], [place] [address]EUX [Catalytic activity/Vol]12 U/LNormal0-41ProOhiohealth O'Bleness Hospital HospitalComment on above:Performed By: #### THYR, 2131-12, BMP, CBCA #### [facility] ([id number]) [address], [address] [place], [place] [address]Edkrammsk [Mass/Vol]0.3 mg/dLNormal0.3-1.2PMercy Memorial Hospital HospitalComment on above:Performed By: #### KAIDEN 2131-12, BMP, CBCA #### [facility] ([id number]) [address], [address] [place], [place] [address]Oydvldv [Mass/Vol]9.0 mg/dLNormal8.5-10.5PMercy Memorial Hospital HospitalComment on above:Performed By: #### KAIDEN 2131-12, KEKE, CBCA #### [facility] ([id number]) [address], [address] [place], [place] [address]Ajzijykl [Moles/Vol]100 mmol/HBaaglu33-556YzpWkszsq [place] HospitalComment on above:Performed By: #### KAIDEN 2131-12, KEKE, CBCA #### [facility] ([id number]) [address], [address] [place], [place] [address]YR4 [Moles/Vol]32 mmol/SXudybu49-45OapKanmbu [facility] Comment on above:Performed By: #### KAIDEN 2131-12, KEKE, CBCA #### [facility] ([id number]) [address], [address] [place], [place] [address]Myvyrpyxlk [Mass/Vol]1.26 mg/dLHigh0.40-1.00ProOhiohealth O'Bleness Hospital HospitalComment on above:Result Comment: METHOD TRACEABLE TO IDMS STANDARD Performed By: #### KAIDEN 2131-12, KEKE, CBCA #### [facility] ([id number]) [address], [address] [place], [place] [address]FUV/1.73 sq M.predicted among non-blacks MDRD (S/P/Bld) [Vol rate/Area]49 mL/min/{1.73_m2}Low>59ProGlenbeigh Hospitalca Miller HospitalComment on above: Result Comment: Reported eGFR is based on the CKD-EPI 2020 equation that does not use a race coefficient.Performed By: #### KAIDEN 2131-12KEKE CBCMindi #### [facility] ([id number]) [address], [address] [place], [place] [address]Mftahyw [Mass/Vol]120 mg/oWOugi63-65IgbKnyrnjParma Community General Hospital Comment on above:Performed By: #### KAIDEN 2131-12, KEKE, CBCA #### [facility] ([id number]) [address], [address] [place], [place] [address]Przcntlrl [Moles/Vol]3.6 mmol/LNormal3.5-5.0ProParma Community General HospitalComment on above:Performed By: #### KAIDEN 2131-12, KEKE, CBCA #### [facility] ([id number]) [address], [address] [place], [place] [address]Axkfrft [Mass/Vol]7.3 g/dLNormal6.0-8.0[facility] Comment on above:Performed By: #### KAIDEN 2131-12, KEKE, CBCA #### [facility] ([id number]) [address], [address] [place], [place] [address]Wqicmo [Moles/Vol]138 mmol/ATosmzi773-576DpuDxqncn [place] HospitalComment on above:Performed By: #### KAIDEN 2131-12, BMP, CBCA #### [facility] ([id number]) [address], [address] [place], [place] [address]Plct nitrogen [Mass/Vol]21 mg/dLNormal5-27ProParma Community General HospitalComment on above:Performed By: #### KAIDEN 2131-12, BMP, CBCA #### [facility] ([id number]) [address], [address] [place], [place] [address]Dzrzibqfsbpyl metabolic panelon 01-22-0041Jgmlhtj [Mass/Vol]4 g/dL3.2 - 5.3 g/dLBarnesville Hospital SystemALP [Catalytic activity/Vol]94 U/L39 - 130 U/[facility] SystemALT No additional P-5'-P [Catalytic activity/Vol] 13 U/L0 - 31 U/[facility] SystemAnion gap [Moles/Vol]6 mmol/L5 - 15 mmol/[facility] Health SystemAST [Catalytic activity/Vol]12 U/L0 - 41 U/L [facility] HospitalBilirubin [Mass/Vol]0.3 mg/dL0.3 - 1.2 mg/dLMemorial HospitalCalcium [Mass/Vol]9 mg/dL8.5 - 10.5 mg/dLMemorial Hospital Chloride [Moles/Vol]100 mmol/L98 - 109 mmol/[facility] SystemCO2 [Moles/Vol]32 mmol/L22 - 32 mmol/[facility] HealthCreatinine [Mass/Vol] 1.26 mg/dLHigh0.40 - 1.00 mg/dLMemorial HospitalComment on above:METHOD TRACEABLE TO [facility] STANDARDeGFR (CKD-EPI)non-race dzpzzeons55Iwx[address] [place], [place] [address]Comment on above: Reported eGFR is based on the CKD-EPI 2020 equation that does not use a race coefficient. Glucose [Mass/Vol]120 mg/yDFasy30 - 99 mg/dLMemorial Hospital Interpretation and review of laboratory resultsAbnormalMemorial Hospital Potassium [Moles/Vol]3.6 mmol/L3.5 - 5.0 mmol/[facility] SystemProtein [Mass/Vol]7.3 g/dL6.0 - 8.0 g/dLCentral Harnett Hospitalodium [Moles/Vol]138 mmol/L134 - 146 mmol/[facility]view HealthUrea nitrogen [Mass/Vol]21 mg/dL5 - 27 mg/dLSouthwood Psychiatric HospitalDIRECT LDLon 03-07-2024 Cholesterol in LDL [Mass/Vol]161 mg/dLHigh<130St. Rita's HospitalComment on above:Result Comment: LDL <100 mg/dL - Desirable LDL 130-159 mg/dL - Borderline High Risk LDL >160 mg/dL - High Risk Performed By: #### KAIDEN, 2131-12, ANNA DAVIES #### [facility] ([id number]) [address], [address] [place], [place] [address]ISO A1C (GLYCO-HGB)on 82-63-1639Ievzvay [Mass/Vol]123 mg/dL NormalProParma Community General HospitalComment on above:Performed By: #### KAIDEN 2131-12, ANNA DAVIES #### [facility] ([id number]) [address] [facility] [address], [address] [place], [place] [address]TzT9s (Bld) [Mass fraction]5.9 %High4.4-5.6St. Rita's HospitalComment on above:Result Comment: NOTE ADA Guidelines Result HgbA1c Normal : less than 5.7 % Prediabetes : 5.7 % to 6.4 % Diabetes : > 6.4 % Use with caution in patients with abnormal hemoglobin variants as the half-life of red blood cells and in vivo glycation rates are affected.Performed By: #### KAIDEN, 2131-12, KEKE, ANNA #### [facility] ([id number]) [address], [address] [place], [place] [address]Xwpzqchihf A1con 66-65-2942Lxcbqvs glucose Estimated from glycated hemoglobin (Bld) [Mass/Vol]123 mg/dLMemorial HospitalHbA1c (Bld) [Mass fraction]5.9 %High4.4 - 5.6 %[facility] SystemComment on above:NOTE ADA Guidelines Result HgbA1c Normal : less than 5.7 % Prediabetes : 5.7 % to 6.4 % Diabetes : > 6.4 % Use with caution in patients with abnormal hemoglobin variants as the half-life of red blood cells and in vivo glycation rates are affected. Interpretation and review of laboratory resultsAbnoAscension St Mary's HospitalMICROALBUMIN - ALBUMIN:CREATININE URINE RATIOon 11-29-8027OVE/CREAT RATIONOT CALCULATEDNormal0.0-30.0[facility] Comment on above:Result Comment: Result for Albumin/Creatinine Ratio cannot be reliably calculated because urine albumin and or urine creatinine is below the detection limit of the assay.Performed By: #### KAIDEN, 2131-12, BMP, CBCA #### [facility] ([id number]) [address], [address] [address]Qkkfdwf DL <= 20 mg/L (U) [Mass/Vol]mg/dLNormal0.0-1.9St. Rita's HospitalComment on above:Performed By: #### THYDasha, 2131-12, BMP, CBCA #### [facility] ([id number]) [address], [address] [place], [place] [address]LHVKP CREAT46.22 mg/dLNoCleveland Clinic Avon HospitalComment on above:Performed By: #### THYDasha, 2131-12, BMP, CBCA #### [facility] ([id number]) [address], [address] [address]Zxbeyolwflbo - Albumin: Creatinine Urine Ratioon 03-07-2024 Albumin DL <= 20 mg/L (U) [Mass/Vol]mg/dL0.0 - 1.9 mg/dLMemorial Hospital Albumin/Creatinine DL <= 1.0 mg/L (U) [Ratio]NOT CALCULATEDMemorial HospitalComment on above: Result for Albumin/Creatinine Ratio cannot be reliably calculated because urine albumin and or urine creatinine is below the detection limit of the assay. Creatinine (U) [Mass/Vol]46.22 mg/dLSouthwood Psychiatric HospitalTRIGLYCERIDEon 96-53-7813Szxidyiryili [Mass/Vol]113 mg/tSHrxqqv39-009 [facility] Mobile HospitalComment on above:Performed By: #### THYR, 2131-12, ANNA DAVIES #### [facility] ([id number]) [address], [address] [place], [place] [address]Ka Panel Informationon 28-03-3625ZdwztEusebia Huertas DO 01/26/2024 3:45 PM L Inj/Asp: L subacromial bursa on 01/26/2024 1:50 PM Indications: pain Details: 21 G needle, posterior approach Medications: 40 mg methylPREDNISolone acetate 40 MG/ML Outcome: tolerated well, no immediate complications Procedure, treatment alternatives, risks and benefits explained, specific risks discussed. Consent was given by the patient. [facility] Shoulder - left 2 Viewson 53-55-5996Gubeiqn Result: January 26, 2024 x-rays AP axillary and Y scapula of the left shoulder demonstrate a type 2 acromion. The glenohumeral joint and acromioclavicular joints are intact. There are no fractures identified. The humeral head is centered in the glenoid. Impression: Type 2 acromion Cipriano Huertas D.O.[facility] HealthRadiology Study observation (narrative)[facility] HospitalBASI METABOLIC PANLon 82-04-0732Whcpb gap [Moles/Vol] 9 mmol/LNormal5-15[facility] Mobile HospitalComment on above:Performed By: #### BMP #### [facility] ([id number]) [address], [address] [place], [place] [address]Jarnfej [Mass/Vol]9.1 mg/dLNormal8.5-10.5ProMedica Mobile HospitalComment on above:Performed By: #### BMP #### [facility] ([id number]) [address], [address] [place], [place] [address]Acfurllo [Moles/Vol]101 mmol/ICsfdup95-842GkoBoiqru Mobile HospitalComment on above:Performed By: #### BMP #### [facility] ([id number]) [address], [address] [place], [place] [address]GM3 [Moles/Vol]31 mmol/YUlfign03-29GjcOnwwwp [facility] Comment on above:Performed By: #### BMP #### [facility] ([id number]) [address], [address] [place], [place] [address]Izvkuzrjib [Mass/Vol]1.36 mg/dLHigh0.40-1.00ProParma Community General HospitalComment on above:Result Comment: METHOD TRACEABLE TO IDMS STANDARD Performed By: #### BMP #### [facility] ([id number]) [address], [address] [place], [place] [address]PBI/1.73 sq M.predicted among non-blacks MDRD (S/P/Bld) [Vol rate/Area]44 mL/min/{1.73_m2}Low>59ProParma Community General HospitalComment on above: Result Comment: Reported eGFR is based on the CKD-EPI 1 equation that does not use a race coefficient.Performed By: #### BMP #### [facility] ([id number]) [address], [address] [place], [place] [address]Xukjziz [Mass/Vol]134 mg/wFZzdh07-96NkdDogyqoParma Community General Hospital Comment on above:Performed By: #### BMP #### [facility] ([id number]) [address], [address] [place], [place] [address]Cxcmsacwu [Moles/Vol]4.1 mmol/LNormal3.5-5.0ProParma Community General HospitalComment on above:Performed By: #### BMP #### [facility] ([id number]) [address], [address] [place], [place] [address]Cgirhc [Moles/Vol]141 mmol/FTzdyzl644-456BgcHuieqb [facility] HospitalComment on above:Performed By: #### BMP #### [facility] ([id number]) [address], [address] [place], [place] [address]Oplr nitrogen [Mass/Vol]19 mg/dLNormal5-27ProParma Community General HospitalComment on above:Performed By: #### BMP #### [facility] ([id number]) [address], [address] [place], [place] [address]Vhzty Metabolic Panelon 58-38-3668Ypnos gap [Moles/Vol]9 mmol/L5 - 15 mmol/[facility] Health SystemCalcium [Mass/Vol]9.1 mg/dL8.5 - 10.5 mg/dL ProMFayette County Memorial HospitalChloride [Moles/Vol]101 mmol/L98 - 109 mmol/[facility] Health SystemCO2 [Moles/Vol]31 mmol/L22 - 32 mmol/[facility] Creatinine [Mass/Vol]1.36 mg/dLHigh0.40 - 1.00 mg/dLMemorial Hospital Comment on above:METHOD TRACEABLE TO [facility] STANDARDeGFR (CKD-EPI)non-race jompuqtff38CecDickenson Community HospitalComment on above: Reported eGFR is based on the CKD-EPI 2020 equation that does not use a race coefficient. Glucose [Mass/Vol]134 mg/nWJzbp05 - 99 mg/dLMemorial Hospital Interpretation and review of laboratory resultsAbnoLevine Children's Hospital Potassium [Moles/Vol]4.1 mmol/L3.5 - 5.0 mmol/LProMedica Health SystemSodium [Moles/Vol]141 mmol/L134 - 146 mmol/[facility] SystemUrea nitrogen [Mass/Vol]19 mg/dL5 - 27 mg/dLSouthwood Psychiatric HospitalNo Panel Informationon 77-72-1991EiuahEusebia Huertas DO 12/29/2023 3:11 PM Trigger Point Injection ([place] [address] [place] [address]): left gluteus tej on 12/29/2023 2:58 PM Indications: pain Details: 21 G needle Medications: 40 mg methylPREDNISolone acetate 40 MG/ML Outcome: tolerated well, no immediate complications Procedure, treatment alternatives, risks and benefits explained, specific risks discussed. [facility] Spine Single viewon 62-85-4076Wvfvqcp Result: Lateral lumbar and thoracic spine x-rays demonstrate to wedge deformities in the thoracic region both of them with a proximally 50 percent collapse. Estimated levels are T6 and T8. Impression: Stable appearance of compression fractures at T6 and T8 no new fractures Cipriano Huertas D.O.[facility] HealthRadiology Study observation (narrative)[facility] HospitalBASIC METABOLIC PANLon 76-41-8683Oluez gap [Moles/Vol] 7 mmol/LNormal5-15[facility] Miller HospitalComment on above:Performed By: #### KEKE, , 2131-12, CBCA #### [facility] ([id number]) [address], [address] [place], [place] [address]Oknfdwo [Mass/Vol]9.0 mg/dLNormal8.5-10.5[facility] Mobile HospitalComment on above:Performed By: #### KEKE, , 2131-12, CBCA #### [facility] ([id number]) [address], [address] [place], [place] [address]Dgwcmicl [Moles/Vol]105 mmol/JZjhsvt87-852JdvVktisk [place] HospitalComment on above:Performed By: #### KEKE, , 2131-12, CBCA #### [facility] ([id number]) [address], [address] [place], [place] [address]NA4 [Moles/Vol]28 mmol/WXdfdgp34-18OedGzftie [facility] Comment on above:Performed By: #### KEKE, , 2131-12, CBCA #### [facility] ([id number]) [address], [address] [place], [place] [address]Wvfujvqqfq [Mass/Vol]1.23 mg/dLHigh0.40-1.00ProOhiohealth O'Bleness Hospital HospitalComment on above:Result Comment: METHOD TRACEABLE TO IDMS STANDARD Performed By: #### KEKE, , 2131-12, CBCA #### [facility] ([id number]) [address], [address] [place], [place] [address]HSN/1.73 sq M.predicted among non-blacks MDRD (S/P/Bld) [Vol rate/Area]50 mL/min/{1.73_m2}Low>59[facility] Mobile HospitalComment on above: Result Comment: Reported eGFR is based on the CKD-EPI 2020 equation that does not use a race coefficient.Performed By: #### KEKE, , 2131-12, CBCA #### [facility] ([id number]) [address], [address] [place], [place] [address]Zoihngi [Mass/Vol]88 mg/lBQhdntu07-70HcbEyzpgv [facility] Comment on above:Performed By: #### KEKE, , 2131-12, CBCA #### [facility] ([id number]) [address], [address] [place], [place] [address]Xdabhnaxj [Moles/Vol]3.9 mmol/LNormal3.5-5.0ProGlenbeigh Hospitalca Mobile HospitalComment on above:Performed By: #### KEKE, , 2131-12, CBCA #### [facility] ([id number]) [address] [address] [place], [place] [address]Goxfcl [Moles/Vol]140 mmol/LSlfzkw045-237IsfFpevgq [place] HospitalComment on above:Performed By: #### KEKE, , 2131-12, CBCA #### [facility] ([id number]) [address], [address] [place], [place] [address]Jwki nitrogen [Mass/Vol]17 mg/dLNormal5-27ProOhiohealth O'Bleness Hospital HospitalComment on above:Performed By: #### KEKE, , 2131-12, CBCA #### [facility] ([id number]) [address], [address] [place], [place] [address]IGQ AND AUTO DIFFon 48-50-8821CLWIPOTN BASOPHIL0.1 X10E9/LNormal 0.0-0.2[facility] Mobile HospitalComment on above:Performed By: #### KEKE, , 2131-12, CBCA #### [facility] ([id number]) [address], [address] [place], [place] [address]YXUEPMYG NEUTROPHIL5.8 X10E9/LNormal1.5-6.6[facility] Mobile HospitalComment on above:Performed By: #### KEKE, , 2131-12, CBCA #### [facility] ([id number]) [address], [address] [place], [place] [address]Mmxkggfxq/100 WBC (Bld)0.6 %NormalSt. Rita's Hospital Comment on above:Performed By: #### KEKE, , 2131-12, CBCA #### [facility] ([id number]) [address], [address] [place], [place] [address]Psxthctthgb (Bld) [#/Vol]0.2 10*3/uLNormal0.0-0.4ProOhiohealth O'Bleness Hospital HospitalComment on above:Performed By: #### KEKE, , 2131-12, CBCA #### [facility] ([id number]) [address], [address] [place], [place] [address]Ozvlozoigfl/100 WBC (Bld)1.9 %NormalSt. Rita's Hospital Comment on above:Performed By: #### KEKE, , 2131-12, CBCA #### [facility] ([id number]) [address], [address] [place], [place] [address]Snytuixbtme distribution width (RBC) [Ratio]17.0 %High11.5-15.0 [facility] Mobile HospitalComment on above:Performed By: #### KEKE, , , CBCA #### [facility] ([id number]) [address], [address] [place], [place] [address]Kgkmqvsirk (Bld) [Volume fraction]33.9 %Ogg92-05CvkGkwzeg [place] HospitalComment on above:Performed By: #### KEKE, , 2131-12, CBCA #### [facility] ([id number]) [address], [address] [place], [place] [address]Ixbzhhcjgl (Bld) [Mass/Vol]10.6 g/dLLow11.7-15.5ProMedFlower Hospital HospitalComment on above:Performed By: #### KEKE, , 2131-12, CBCA #### [facility] ([id number]) [address], [address] [place], [place] [address]Kqpgwuosmpu (Bld) [#/Vol]2.3 10*3/uLNormal1.0-3.5PMercy Memorial Hospital HospitalComment on above:Performed By: #### KEKE, , 2131-12, CBCA #### [facility] ([id number]) [address], [address] [place], [place] [address]Adyuvbwuvlp/100 WBC (Bld)25.6 %NormalSt. Rita's Hospital Comment on above:Performed By: #### KEKE, , 2131-12, CBCA #### [facility] ([id number]) [address], [address] [place], [place] [address]ISD (RBC) [Entitic mass]26.1 tvZpi55-99OxdZpojbeSt. Rita's Hospital Comment on above:Performed By: #### KEKE, , 2131-12, CBCA #### [facility] ([id number]) [address], [address] [place], [place] [address]NUFS (RBC) [Mass/Vol]31.2 g/lCPro74-63ZhwOrzlqtSt. Rita's Hospital Comment on above:Performed By: #### KEKE, , 2131-12, CBCA #### [facility] ([id number]) [address], [address] [place], [place] [address]LEY (RBC) [Entitic vol]84 rPEcusap91-424LowOintog [facility] HospitalComment on above:Performed By: #### KEKE, , 2131-12, CBCA #### [facility] ([id number]) [address], [address] [place], [place] [address]Vshgusudv (Bld) [#/Vol]0.6 10*3/uLNormal0-0.9ProParma Community General HospitalComment on above:Performed By: #### KEKE, , 2131-12, CBCA #### [facility] ([id number]) [address], [address] [place], [place] [address]Pyzcenzpq/100 WBC (Bld)6.8 %[facility] Comment on above:Performed By: #### KEKE, , 2131-12, CBCA #### [facility] ([id number]) [address], [address] [place], [place] [address]Ltgbdjkdwcr/100 WBC (Bld)65.1 %[facility] Comment on above:Performed By: #### KEKE, , 2131-12, CBCA #### [facility] ([id number]) [address], [address] [place], [place] [address]Jqutmwpp mean volume (Bld) [Entitic vol]8.1 fLNormal7-12 ProMcrossbridge behavioral healtha Mobile HospitalComment on above:Performed By: #### KEKE, , , CBCA #### [facility] ([id number]) [address], [address] [place], [place] [address]Sdzjzqsyo (Bld) [#/Vol]287 10*3/vLNucyuv897-762ButVrgzgy Mobile HospitalComment on above:Performed By: #### KEKE, , 2131-12, CBCA #### [facility] ([id number]) [address], [address] [place], [place] [address]VXU COUNT4.05 X10E12/LNormal3.80-5.20ProGlenbeigh Hospitalca [facility] Comment on above:Performed By: #### KEKE, , 2131-12, CBCA #### [facility] ([id number]) [address], [address] [place], [place] [address]UUW (Bld) [#/Vol]9.0 10*3/uLNormal4.0-11.0Pro[facility] HospitalComment on above:Performed By: #### KEKE, , 2131-12, CBCA #### [facility] ([id number]) [address], [address] [place], [place] [address]LGRFXKGQNhr 76-32-3150Gnzdkdpsx [Mass/Vol]2.2 mg/dLNormal1.8-2.6 [facility] HospitalComment on above:Performed By: #### KEKE, , , CBCA #### [facility] ([id number]) [address], [address] [place], [place] [address]PDHCKET B12on 11-72-2572Fyqcmhhvw (Vitamin B12) [Mass/Vol]370 pg/yJCzolqz104-025VowVihcyi Mobile HospitalComment on above:Performed By: #### KEKE, , 2131-12, CBCA #### [facility] ([id number]) [address], [address] [place], [place] [address]KHQKD METABOLIC PANLon 91-09-2477Gozyn gap [Moles/Vol]14 mmol/L Normal5-15ProOhiohealth O'Bleness Hospital HospitalComment on above:Performed By: #### KAIDEN 2131-12, KEKE, CBCA #### [facility] ([id number]) [address], [address] [place], [place] [address]Joloofs [Mass/Vol]9.4 mg/dLNormal8.5-10.5PTriHealth Good Samaritan HospitalComment on above:Performed By: #### KAIDEN 2131-12, BMP, CBCA #### [facility] ([id number]) [address], [facility] [address] [place], [place] [address]Gldwhxoi [Moles/Vol]104 mmol/WVskcza40-997RlrGkqmtc [facility] HospitalComment on above:Performed By: #### KAIDEN 2131-12, KEKE, CBCA #### [facility] ([id number]) [address], [address] [place], [place] [address]BY1 [Moles/Vol]27 mmol/JWakkda73-19GhtAhrxbe [facility] Comment on above:Performed By: #### KAIDEN 2131-12, KEKE, CBCA #### [facility] ([id number]) [address], [address] [place], [place] [address]Jaoauvfzpb [Mass/Vol]1.85 mg/dLHigh0.40-1.00ProParma Community General HospitalComment on above:Result Comment: METHOD TRACEABLE TO IDMS STANDARD Performed By: #### KAIDEN 2131-12, BMP, CBCA #### [facility] ([id number]) [address] [address] [place], [place] [address]GDL/1.73 sq M.predicted among non-blacks MDRD (S/P/Bld) [Vol rate/Area]31 mL/min/{1.73_m2}Low>59ProParma Community General HospitalComment on above: Result Comment: Reported eGFR is based on the CKD-EPI 2020 equation that does not use a race coefficient.Performed By: #### KAIDEN 2131-12, BMP, CBCA #### [facility] ([id number]) [address], [address] [place], [place] [address]Enjilbo [Mass/Vol]128 mg/gMIkyz55-37CspKooyhpParma Community General Hospital Comment on above:Performed By: #### KAIDEN 2131-12, BMP, CBCA #### [facility] ([id number]) [address], [address] [place] [address]Blpdgfnbk [Moles/Vol]3.9 mmol/LNormal3.5-5.0ProParma Community General HospitalComment on above:Performed By: #### KAIDEN 2131-12, BMP, CBCA #### [facility] ([id number]) [address], [address] [address]Zmmtdu [Moles/Vol]145 mmol/UAulbyk894-719WlhBunhem [facility] HospitalComment on above:Performed By: #### KAIDEN 2131-12, BMP, CBCA #### [facility] ([id number]) [address], [address] [address]Hbji nitrogen [Mass/Vol]36 mg/dLHigh5-27ProParma Community General HospitalComment on above:Performed By: #### KAIDEN 2131-12, BMP, CBCA #### [facility] ([id number]) [address], [address] [place] [id number] Metabolic Panelon 50-31-2405Fwrhd gap [Moles/Vol]14 mmol/L 5 - 15 mmol/LProMedica Health SystemCalcium [Mass/Vol]9.4 mg/dL8.5 - 10.5 mg/dL [facility] SystemChloride [Moles/Vol]104 mmol/L98 - 109 mmol/LProMedica Health SystemCO2 [Moles/Vol]27 mmol/L22 - 32 mmol/LProMedica Health System Creatinine [Mass/Vol]1.85 mg/dLHigh0.40 - 1.00 mg/dLMem[facility] Comment on above:METHOD TRACEABLE TO IDNY STANDARDeGFR (CKD-EPI)non-race [id number]- PINSaint Luke's East HospitalComment on above: Reported eGFR is based on the CKD-EPI 2020 equation that does not use a race coefficient. Glucose [Mass/Vol]128 mg/zBZwht32 - 99 mg/dLMemorial Hospital Interpretation and review of laboratory resultsAbnormalMemorial Hospital Potassium [Moles/Vol]3.9 mmol/L3.5 - 5.0 mmol/LPrGenesis Hospital SystemSodium [Moles/Vol]145 mmol/L134 - 146 mmol/[facility]view HealthUrea nitrogen [Mass/Vol]36 mg/dLHigh5 - 27 mg/dLSouthwood Psychiatric Hospital CBC AND AUTO DIFFon [id number] BASOPHIL0.0 X10E9/LNormal0.0-0.2PTriHealth Good Samaritan HospitalComment on above:Performed By: #### KAIDEN 2131-12, BMP, CBCA #### [facility] ([id number]) [address], [address] [place], [place] [address]AYKIOGQN NEUTROPHIL5.8 X10E9/LNormal1.5-6.6St. Rita's HospitalComment on above:Performed By: #### KAIDEN 2131-12, KEKE, CBCA #### [facility] ([id number]) [address], [address] [place], [place] [address]Oipyxhoky/100 WBC (Bld)0.4 %NormalSt. Rita's Hospital Comment on above:Performed By: #### KAIDEN 2131-12, BMP, CBCA #### [facility] ([id number]) [address], [address] [place], [place] [address]Iyatizyfmzf (Bld) [#/Vol]0.0 10*3/uLNormal0.0-0.4St. Rita's HospitalComment on above:Performed By: #### KAIDEN 2131-12, BMP, CBCA #### [facility] ([id number]) [address], [address] [place], [place] [address]Ibfsmydkrrk/100 WBC (Bld)0.0 %[facility] Comment on above:Performed By: #### KAIDEN 2131-12, BMP, CBCA #### [facility] ([id number]) [address], [address] [place], [place] [address]Zjcfdlsypwn distribution width (RBC) [Ratio]16.2 %High11.5-15.0 [facility] HospitalComment on above:Performed By: #### KAIDEN 2131-12, BMP, CBCA #### [facility] ([id number]) [address], [facility] [address] [place], [place] [address]Korqfctenr (Bld) [Volume fraction]35.1 %Jyiprx20-84VguDechwtParma Community General HospitalComment on above:Performed By: #### KAIDEN 2131-12, BMP, CBCA #### [facility] ([id number]) [address] [address] [place], [place] [address]Czsdmsuxuh (Bld) [Mass/Vol]11.3 g/dLLow11.7-15.5PTriHealth Good Samaritan HospitalComment on above:Performed By: #### KAIDEN 2131-12, BMP, CBCA #### [facility] ([id number]) [address], [address] [place], [place] [address]Dksvljwkjop (Bld) [#/Vol]1.1 10*3/uLNormal1.0-3.5PTriHealth Good Samaritan HospitalComment on above:Performed By: #### KAIDEN 2131-12, BMP, CBCA #### [facility] ([id number]) [address], [address] [place], [place] [address]Swsjsgsglnp/100 WBC (Bld)15.7 %[facility] Comment on above:Performed By: #### THYDasha, 2131-12, BMP, CBCA #### [facility] ([id number]) [address], [address] [place], [place] [address]VVN (RBC) [Entitic mass]27.0 tmXegolq79-50BoeGbtyvj Miller HospitalComment on above:Performed By: #### THYDasha, 2131-12, BMP, CBCA #### [facility] ([id number]) [address], [address] [place], [place] [address]DRAU (RBC) [Mass/Vol]32.2 g/gLSzjpqh25-25JvjFbhbvh Miller HospitalComment on above:Performed By: #### KAIDEN, 2131-12, BMP, CBCA #### [facility] ([id number]) [address], [address] [place], [place] [address]MMT (RBC) [Entitic vol]84 xPSctxpq19-284VimPnzhss Miller HospitalComment on above:Performed By: #### THYDasha, 2131-12, BMP, CBCA #### [facility] ([id number]) [address], [address] [place], [place] [address]Lrzrquayr (Bld) [#/Vol]0.2 10*3/uLNormal0-0.9ProMedica Miller HospitalComment on above:Performed By: #### THYDasha, 2131-12, BMP, CBCA #### [facility] ([id number]) [address], [address] [place], [place] [address]Umqqalflr/100 WBC (Bld)2.3 %NormalProMedica Miller Hospital Comment on above:Performed By: #### THYR, 2131-12, BMP, CBCA #### [facility] ([id number]) [address], [address] [place], [place] [address]Uoszamuzoqs/100 WBC (Bld)81.6 %NormalProMedica Miller Hospital Comment on above:Performed By: #### KAIDEN, 2131-12, BMP, CBCA #### [facility] ([id number]) [address], [address] [place], [place] [address]Wquduvdt mean volume (Bld) [Entitic vol]8.[address] Rita's HospitalComment on above:Performed By: #### KAIDEN, 2131-12, BMP, CBCA #### [facility] ([id number]) [address], [address] [place], [place] [address]Qsiemwfem (Bld) [#/Vol]380 10*3/tRPzlxwj340-814IaqQhwhdu [place] HospitalComment on above:Performed By: #### KAIDEN, 2131-12, BMP, CBCA #### [facility] ([id number]) [address], [address] [place] [address]XBC COUNT4.19 X10E12/LNormal3.80-5.20[facility] Comment on above:Performed By: #### KAIDEN, 2131-12, BMP, CBCA #### [facility] ([id number]) [address], [address] [place] [address]BUB (Bld) [#/Vol]7.2 10*3/uLNormal4.0-11.0St. Rita's HospitalComment on above:Performed By: #### KAIDEN, 2131-12, BMP, CBCA #### [facility] ([id number]) [address], [address] [place] [address]GEM auto differentialon 32-95-1310Qyrutflwe (Bld) [#/Vol]0.0 10*3/uLProMedica Health SystemBasophils/100 WBC (Bld)0.4 %ProMNorth Shore Health SystemEosinophils (Bld) [#/Vol]0.0 10*3/uLProMedica Health SystemEosinophils/100 WBC (Bld)0.0 %[facility]orial HospitalErythrocyte distribution width (RBC) [Ratio]16.2 %High11.5 - 15.0 %[facility]orial HospitalHematocrit (Bld) [Volume fraction]35.1 %35 - 47 %[facility] HospitalHemoglobin (Bld) [Mass/Vol]11.3 g/dLLow11.7 - 15.5 g/dLMemorial HospitalInterpretation and review of laboratory resultsAbnormParkview HealthLymphocytes (Bld) [#/Vol]1.1 10*3/[facility] LakeView HospitalLymphocytes/100 WBC (Bld)15.7 %[facility] HospitalMCH (RBC) [Entitic mass]27.0 pg27 - 34 pgPUniversity Hospitals Parma Medical CenterMCHC (RBC) [Mass/Vol]32.2 g/dL32 - 36 g/dLMemorial HospitalMCV (RBC) [Entitic vol]84 fL80 - 100 [facility] CenterMonocytes (Bld) [#/Vol]0.2 10*3/[facility] LakeView HospitalMonocytes/100 WBC (Bld)2.3 %[facility]orial HospitalNeutrophils (Bld) [#/Vol]5.8 10*3/[facility] LakeView HospitalNeutrophils/100 WBC (Bld)81.6 % [facility] HospitalPlatelet mean volume (Bld) [Entitic vol]8.1 fL7 - 12 fL [facility] HospitalPlatelets (Bld) [#/Vol]380 10*3/[facility] RBC (Bld) [#/Vol]4.19 10*6/[facility] LakeView HospitalWBC corrected for nucl RBC Auto (Bld) [#/Vol]7.2PForbes HospitalCobalamin (Vitamin B12) [Mass/Vol]on 09-07-9851IlrNjvxqtUniversity Hospitals Parma Medical CenterTHYROID PROFILEon 95-97-7825Zeox T4 [Mass/Vol]1.19 ng/dLNormal0.61-1.60[facility] Comment on above:Performed By: #### THYR, 2132-9, BMP, CBCA #### [facility] ([id number]) [address], [address] [place], [place] [address]ITN3.11 uIU/mLLow0.49-4.67St. Rita's HospitalComment on above:Performed By: #### THYR, 2131-12, BMP, CBCA #### [facility] ([id number]) [address], [address] [place], [place] [address]Srhnlwr profile includes TSH FT4on 65-12-6238Iris T4 [Mass/Vol] 1.19 ng/dL0.61 - 1.60 ng/dLMemorial HospitalInterpretation and review of laboratory resultsAbnormalAtrium Health Cabarrus Qn0.11 m[IU]/LLowSouthwood Psychiatric HospitalVITAMIN B12on 82-94-6251Fovbgpgwr (Vitamin B12) [Mass/Vol]204 pg/gOFgzhjd691-303LksScdybs [place] HospitalComment on above: Performed By: #### THYR, 2131-12, BMP, CBCA #### [facility] ([id number]) [address], [address] [place], [place] [address]Fwnoipz B12on 75-71-4068Rzhijgryd (Vitamin B12) [Mass/Vol]204 pg/mL180 - 914 pg/mLMemorial HospitalPOCT Influenza A/Influenza B/SARS-COV-2 Veritoron 89-47-6518Krvyjhup Poct Influenza A AntigenNegative Memorial HospitalExternal Poct Influenza B AntigenNegativeCentral Harnett HospitalARS-CoV-2 (COVID-19) Ag IA.rapid Ql (Resp)NegativeSouthwood Psychiatric HospitalXR Chest PA and Lateralon 09-24-2023 Clinical [...] Tristen Neely MD on 09/24/2023 11:13 PM [facility] HospitalRadiology Study observation (narrative)[facility] My[facility] ClareXR Chest PA and LateralOrdered By: Tristen Neely on 05-12-1530GahNjtberUniversity Hospitals Parma Medical Center Work Phone: Basic Metabolic Panelon 54-04-1602Swqne gap [Moles/Vol]8 mmol/L5 - 15 mmol/LProMedica Health SystemCalcium [Mass/Vol]9.0 mg/dL8.5 - 10.5 mg/dLProMediHocking Valley Community Hospital SystemChloride [Moles/Vol]100 mmol/L98 - 109 mmol/LProMedica Health SystemCO2 [Moles/Vol]28 mmol/L22 - 32 mmol/LProMedica Health SystemCreatinine [Mass/Vol]1.06 mg/dLHigh0.40 - 1.00 mg/dLMemorial HospitalComment on above:METHOD TRACEABLE TO [facility] STANDARDeGFR (CKD-EPI)non-race hkfewkblf[address] [place], [place] [address]Comment on above: Reported eGFR is based on the CKD-EPI 1 equation that does not use a race coefficient. Glucose [Mass/Vol]148 mg/pBVnwd43 - 99 mg/dLMemorial Hospital Interpretation and review of laboratory resultsAbnoLehigh Valley Hospital - Muhlenberg System Potassium [Moles/Vol]3.4 mmol/LLow3.5 - 5.0 mmol/LProMedica Health SystemSodium [Moles/Vol]136 mmol/L134 - 146 mmol/LProMedica Health SystemUrea nitrogen [Mass/Vol]24 mg/dL5 - 27 mg/dLSouthwood Psychiatric Hospital Basic Metabolic Panelon 46-16-8977Xvfyj gap [Moles/Vol]9 mmol/L5 - 15 mmol/L [facility] SystemCalcium [Mass/Vol]8.8 mg/dL8.5 - 10.5 mg/dLMemorial HospitalChloride [Moles/Vol]103 mmol/L98 - 109 mmol/LProMeduab hospital Health SystemCO2 [Moles/Vol]27 mmol/L22 - 32 mmol/[facility] SystemCreatinine [Mass/Vol]1.18 mg/dLHigh0.40 - 1.00 mg/dLMemorial HospitalComment on above:METHOD TRACEABLE TO [facility] STANDARDeGFR (CKD-EPI)non-race bwypcejum15OnkDickenson Community HospitalComment on above: Reported eGFR is based on the CKD-EPI 1 equation that does not use a race coefficient. Glucose [Mass/Vol]157 mg/jEFago65 - 99 mg/dLMemorial Hospital Interpretation and review of laboratory resultsAbnoLehigh Valley Hospital - [facility]len[facility] System Potassium [Moles/Vol]3.7 mmol/L3.5 - 5.0 mmol/LProMedica Health SystemSodium [Moles/Vol]139 mmol/L134 - 146 mmol/[facility] HospitaloMeduab hospital Health SystemUrea nitrogen [Mass/Vol]18 mg/dL5 - 27 mg/dLSouthwood Psychiatric Hospital Basic Metabolic Panelon 47-64-1428Orvys gap [Moles/Vol]5 mmol/L5 - 15 mmol/L Memorial HospitalCalcium [Mass/Vol]8.7 mg/dL8.5 - 10.5 mg/dLMemorial HospitalChloride [Moles/Vol]104 mmol/L98 - 109 mmol/[facility] SystemCO2 [Moles/Vol]27 mmol/L22 - 32 mmol/[facility] SystemCreatinine [Mass/Vol]1.57 mg/dLHigh0.40 - 1.00 mg/dLMemorial HospitalComment on above:METHOD TRACEABLE TO [place] STANDARDeGFR (CKD-EPI)non-race hgipeehcz23Toi- [facility]ando[facility] Memorial HospitalComment on above: Reported eGFR is based on the CKD-EPI 2020 equation that does not use a race coefficient. Glucose [Mass/Vol]107 mg/wJHoiz06 - 99 mg/dLMemorial Hospital Interpretation and review of laboratory resultsAbnoLevine Children's Hospital Potassium [Moles/Vol]3.6 mmol/L3.5 - 5.0 mmol/[facility] SystemSodium [Moles/Vol]136 mmol/L134 - 146 mmol/Parkview HealthUrea nitrogen [Mass/Vol]21 mg/dL5 - 27 mg/dLSouthwood Psychiatric Hospital Blood gas, venouson 49-14-3510Oogrpxhl patency Wrist artery --pre arterial punctureMemorial HospitalBase deficit (Bld) [Moles/Vol]1.0 mmol/Parkview HealthCO2 (BldV) [Partial pressure]67.8 mm[Hg]Community Health SystemsHCO3 (Bld) [Moles/Vol]28.0 mmol/LHighMemorial HospitalInterpretation and review of laboratory resultsAbnormVA hospital SystemOxygen (BldV) [Partial pressure]43 mm[Hg]Memorial HospitalOxygen therapy source and amount [CARE]NCBarnesville Hospital SystemOxygen/Inspired gas setting [Volume Fraction] Acjkvvrpcd80 %Memorial HospitalpH (BldV)7.224 [pH]Low7.320 - 7.420Central Harnett HospitalaO2% Calculated from oxygen partial pressure (BldV) [Mass fraction]68.0 %Low80.0 - PINF %[facility]arnett Hospitalpecimen site NarrativeN/AProWadsworth-Rittman Hospitalpecimen type Nom (Spec)VENOUSSouthwood Psychiatric HospitalCBC auto differentialon 24-41-9440Stblhsyne (Bld) [#/Vol]0.1 10*3/[facility] LakeView HospitalBasophils/100 WBC (Bld)0.6 % Memorial HospitalEosinophils (Bld) [#/Vol]0.2 10*3/[facility] LakeView HospitalEosinophils/100 WBC (Bld)2.2 %Memorial HospitalErythrocyte distribution width (RBC) [Ratio]16.6 %High11.5 - 15.0 %[facility] Hematocrit (Bld) [Volume fraction]35.0 %35 - 47 %[facility] Hemoglobin (Bld) [Mass/Vol]11.3 g/dLLow11.7 - 15.5 g/dLMemorial Hospital Interpretation and review of laboratory resultsAbnormParkview Health Lymphocytes (Bld) [#/Vol]2.6 10*3/[facility] LakeView HospitalLymphocytes/100 WBC (Bld)25.4 %Memorial HospitalMCH (RBC) [Entitic mass]29.3 pg27 - 34 pg Memorial HospitalMCHC (RBC) [Mass/Vol]32.3 g/dL32 - 36 g/dLMemorial HospitalMCV (RBC) [Entitic vol]91 fL80 - 100 [facility] Monocytes (Bld) [#/Vol]0.6 10*3/[facility] LakeView HospitalMonocytes/100 WBC (Bld) 5.7 %Memorial HospitalNeutrophils (Bld) [#/Vol]6.7 10*3/[facility] Health Medical CenterNeutrophils/100 WBC (Bld)66.1 %Memorial HospitalPlatelet mean volume (Bld) [Entitic vol]7.9 fL7 - 12 [facility] CenterPlatelets (Bld) [#/Vol]308 10*3/[facility] LakeView HospitalRBC (Bld) [#/Vol]3.86 10*6/uLMemorial HospitalWBC corrected for nucl RBC Auto (Bld) [#/Vol]10.2PForbes HospitalCritical Careon 39-37-1686Arzrzh Vohra, MD 07/25/2023 7:27 PM Critical Care [...] performing treatments and interventions and examination of patientRipon Medical Center SystemECG 12 leadon 09-00-7550GYFHLVOZLUHAKUDsqMhzvac Health SystemLaboratory - Microbiology and Antimicrobial susceptibilityon 07-25-2023 FLUAV+FLUBV RNA HUBERT+probe Ql (Unsp spec)NegativeNegative^NegativeMemorial HospitalLactate (P yong) [Moles/Vol]on 57-71-8724LltXfrwbqUniversity Hospitals Parma Medical Center Lactate w/ Reflexon 98-02-0312Sjiqhgc (P yong) [Moles/Vol]1.1 mmol/L0.4 - 2.0 mmol/LPrSheltering Arms HospitalComment on above: Result did not trigger repeat Lactate, re-order if needed. SARS/FLU A+B/RSV by NAAT/Molecular (M4RT Collection Tube)on 44-58-8546QTW RNA HUBERT+probe Nom (Unsp spec)NegativeNegative^NegativeMemorial Hospital SARS-CoV-2 (COVID-19) RNA HUBERT+probe Ql (Resp)Not detectedNot Detected^Not DetectedMemorial HospitalComment on above:NOTE The Xpert Xpress SARS-CoV-2/Flu/RSV [...] operators who are performing tests using either [employer] or [employer] systems and is limited to laboratories that [...] specimen repeat. Fact Sheet for Healthcare Providers: https://www.fda.gov/media/312861/download Fact Sheet for Patients: https://www.fda.gov/media/096649/download [facility] Health SystemTroponin Ion 19-75-6501Edjvbrrs I.cardiac [Mass/Vol]0.01 ng/mL0.00 - 0.04 ng/mLProMedica [facility] SystemTroponin I.cardiac [Mass/Vol]on 50-73-6195ZfwKpuwurUniversity Hospitals Parma Medical CenterXR Chest PA and Lateralon 42-69-9312YhddprAbdelrahman Patel MD - 07/25/2023 Procedure: Chest x-ray performed Number of views:2 History:Shortness of breath Comparison:07/24/2023 Findings: The heart and lungs show no acute findings, and the mediastinum and satnam are grossly negative . Impression: 1. No acute change. Finalized by Abdelrahman Patel MD on 07/25/2023 5:16 PM [facility] HospitalRadiology Study observation (narrative)Memorial HospitalXR Chest PA and LateralOrdered By: Abdelrahman Patel on 59-11-5541XyeRkklsuUniversity Hospitals Parma Medical Center Work Phone: Basi Metabolic Panelon 73-00-0664Asjqz gap [Moles/Vol]8 mmol/L5 - 15 mmol/[facility] Health SystemCalcium [Mass/Vol]9.5 mg/dL8.5 - 10.5 mg/dLMemorial HospitalChloride [Moles/Vol]102 mmol/L98 - 109 mmol/[facility] Health SystemCO2 [Moles/Vol]32 mmol/L22 - 32 mmol/[facility] SystemCreatinine [Mass/Vol]1.27 mg/dLHigh0.40 - 1.00 mg/dLMemorial HospitalComment on above:METHOD [facility]ACEABLE TO [facility] STANDARDeGFR (CKD-EPI)non-race oezhaylqd81XzhDickenson Community HospitalComment on above: Reported eGFR is based on the CKD-EPI 2020 equation that does not use a race coefficient. Glucose [Mass/Vol]87 mg/dL65 - 99 mg/dLMemorial HospitalInterpretation and review of laboratory resultsAbnormalMemorial HospitalPotassium [Moles/Vol]4.0 mmol/L3.5 - 5.0 mmol/LProMedica Health SystemSodium [Moles/Vol] 142 mmol/L134 - 146 mmol/[facility] Health SystemUrea nitrogen [Mass/Vol]15 mg/dL5 - 27 mg/dLSouthwood Psychiatric HospitalCBC auto differentialon 01-50-4749Snhrjhiqt (Bld) [#/Vol]0.1 10*3/uLMemorial HospitalBasophils/100 WBC (Bld)0.6 %Memorial HospitalEosinophils (Bld) [#/Vol]0.1 10*3/[facility] LakeView HospitalEosinophils/100 WBC (Bld)1.3 %Memorial HospitalErythrocyte distribution width (RBC) [Ratio]19.3 %High11.5 - 15.0 %Memorial HospitalHematocrit (Bld) [Volume fraction]35.7 %35 - 47 % Memorial HospitalHemoglobin (Bld) [Mass/Vol]11.5 g/dLLow11.7 - 15.5 g/dL [facility] HospitalInterpretation and review of laboratory resultsAbnormal Memorial HospitalLymphocytes (Bld) [#/Vol]1.5 10*3/[facility] LakeView HospitalLymphocytes/100 WBC (Bld)14.5 %[facility] Bryan HospitalH (RBC) [Entitic mass]29.3 pg27 - 34 [facility] HospitalMCHC (RBC) [Mass/Vol]32.2 g/dL32 - 36 g/dLMemorial HospitalMCV (RBC) [Entitic vol]91 fL80 - 100 [facility] CenterMonocytes (Bld) [#/Vol]0.6 10*3/[facility] Monocytes/100 WBC (Bld)5.8 %Memorial HospitalNeutrophils (Bld) [#/Vol]8.1 10*3/[facility] Health Medical CenterNeutrophils/100 WBC (Bld)77.8 %Memorial HospitalPlatelet mean volume (Bld) [Entitic vol]8.9 fL7 - 12 [facility] CenterPlatelets (Bld) [#/Vol]321 10*3/[facility] Lake[facility] HospitalRBC (Bld) [#/Vol]3.92 10*6/[facility] LakeView HospitalWBC corrected for nucl RBC Auto (Bld) [#/Vol]10.5PForbes HospitalTSH with Reflexon 57-47-1695EOO Qn0.80 m[IU]/[facility] HospitalCBC AND AUTO DIFFon 92-89-3767MFOAUQXA BASOPHIL0.1 X10E9/LNormal0.0-0.2ProMedica [facility] Portland Medical CenterComment on above:Performed By: #### XENIA, 35740-7, , CBCA #### [facility] ([id number]) [address] [place], [place] [address]KOVFJPQE NEUTROPHIL6.7 X10E9/LHigh1.5-6.6ProMercy Health St. Anne HospitalComment on above:Performed By: #### XENIA, 88022-0, , CBCA #### [facility] ([id number]) [address] [place], [place] [address]Bzrtjwboq/100 WBC (Bld)1.2 %NormalCrystal Clinic Orthopedic Center Comment on above:Performed By: #### XENIA, 63446-7, , CBCA #### [facility] ([id number]) [address] [place], [place] [address]Gptfxpgiljd (Bld) [#/Vol]0.2 10*3/uLNormal0.0-0.4ProMercy Health St. Anne HospitalComment on above:Performed By: #### XENIA, 62988-3, , CBCA #### [facility] ([id number]) [address] [place], [place] [address]Fgqncbptsyj/100 WBC (Bld)2.2 %NormalCrystal Clinic Orthopedic Center Comment on above:Performed By: #### XENIA, 67593-7, , CBCA #### [facility] ([id number]) [address] [place], [place] [address]Zrjnmcxojmc distribution width (RBC) [Ratio]17.3 %High11.5-15.0 ProMFirelands Regional Medical CenterComment on above:Performed By: #### XENIA, 50124-6, , CBCA #### [facility] ([id number]) [address] [place], [place] [address]Pwvivuzjsc (Bld) [Volume fraction]40.6 %Dbqogs23-45OmrTrxfayMercy Health St. Anne HospitalComment on above:Performed By: #### CMP, 28841-9, , CBCA #### [facility] ([id number]) [address] [place], [place] [address]Wxdylopbqf (Bld) [Mass/Vol]13.3 g/aUXtykrw61.7-15.5PDelaware County HospitalComment on above:Performed By: #### CMP, 24950-7, 25160-8, CBCA #### [facility] ([id number]) [address] [place], [place] [address]Elevgdkltsv (Bld) [#/Vol]2.4 10*3/uLNormal1.0-3.5PDelaware County HospitalComment on above:Performed By: #### CMP, 07749-5, , CBCA #### [facility] ([id number]) [address] [place], [place] [address]Oztwpovddkg/100 WBC (Bld)22.7 %NormalProMercy Health St. Anne Hospital Comment on above:Performed By: #### CMP, 40432-5, , CBCA #### [facility] ([id number]) [address] [place], [place] [address]TAY (RBC) [Entitic mass]28.4 wiOhrgtc37-94MdeBroghnCrystal Clinic Orthopedic CenterComment on above:Performed By: #### CMP, 56160-2, , CBCA #### [facility] ([id number]) [address] [place], [place] [address]COZW (RBC) [Mass/Vol]32.7 g/wVOvvqdk84-04WxeYjyysiMercy Health St. Anne HospitalComment on above:Performed By: #### CMP, 93363-7, , CBCA #### [facility] ([id number]) [address] [place], [place] [address]TOH (RBC) [Entitic vol]87 bQTbxigt70-378DgqVszndo Baypark HospitalComment on above:Performed By: #### CMP, 19454-7, 81056-8, CBCA #### [facility] ([id number]) [address] [place], [place] [address]Xmxixtvyu (Bld) [#/Vol]1.2 10*3/uLHigh0-0.9ProMercy Health St. Anne HospitalComment on above:Performed By: #### CMP, 47485-8, 31227-2, CBCA #### [facility] ([id number]) [address] [place], [place] [address]Jerdmhlqd/100 WBC (Bld)11.2 %NormalCrystal Clinic Orthopedic Center Comment on above:Performed By: #### CMP, 48277-0, , CBCA #### [facility] ([id number]) [address] [place], [place] [address]Jpzgkkzsriw/100 WBC (Bld)62.7 %NormalCrystal Clinic Orthopedic Center Comment on above:Performed By: #### CMP, 62412-6, , CBCA #### [facility] ([id number]) [address] [place], [place] [address]Fjakibcx mean volume (Bld) [Entitic vol]8.3 fLNormal7-12 ProMFirelands Regional Medical CenterComment on above:Performed By: #### CMP, 27626-2, , CBCA #### [facility] ([id number]) [address] [place], [place] [address]Ueoioohuu (Bld) [#/Vol]301 10*3/aNBzhxar338-056QmuDltkvb [facility]park HospitalComment on above:Performed By: #### CMP, 53983-0, 13202-7, CBCA #### [facility] ([id number]) [address] [place], [place] [address]URM COUNT4.68 X10E12/LNormal3.80-5.20[facility] Comment on above:Performed By: #### CMP, 03084-9, 91693-4, CBCA #### [facility] ([id number]) [address] [place], [place] [address]LOC (Bld) [#/Vol]10.7 10*3/uLNormal4.0-11.0ProMercy Health St. Anne HospitalComment on above:Performed By: #### XENIA, 45812-0, , CBCA #### [facility] ([id number]) [address] [place], [place] [address]PTTJUBCOJKGOO METABOLIC PANELon 38-13-2412Hbbghbx [Mass/Vol]3.5 g/dLNormal3.2-5.3ProMedOhio State Health System HospitalComment on above:Performed By: #### XENIA, 94596-7, 74302-7, CBCA #### [facility] ([id number]) [address] [place], [place] [address]DCV [Catalytic activity/Vol]72 U/IOysnyf79-739JuvApvkbnMercy Health St. Anne HospitalComment on above:Performed By: #### XENIA, 73108-3, 41853-3, CBCA #### [facility] ([id number]) [address] [place], [place] [address]IIF [Catalytic activity/Vol]42 U/LHigh0-31PDelaware County HospitalComment on above:Performed By: #### XENIA, 58807-5, , CBCA #### [facility] ([id number]) [address] [place], [place] [address]Pclys gap [Moles/Vol]9 mmol/LNormal5-15ProWright-Patterson Medical Center HospitalComment on above:Performed By: #### CMP, 07601-1, 25304-4, CBCA #### [facility] ([id number]) [address] [place], [place] [address]MOS [Catalytic activity/Vol]22 U/LNormal0-41ProWright-Patterson Medical Center HospitalComment on above:Performed By: #### XENIA, 71660-2, 45945-6, CBCA #### [facility] ([id number]) [address] [place], [place] [address]Shnlavgfl [Mass/Vol]0.8 mg/dLNormal0.3-1.2PDelaware County HospitalComment on above:Performed By: #### XENIA, 69865-8, , CBCA #### [facility] ([id number]) [address] [place], [place] [address]Uszghgs [Mass/Vol]10.2 mg/dLNormal8.5-10.5PDelaware County HospitalComment on above:Performed By: #### XENIA, 57524-7, , CBCA #### [facility] ([id number]) [address] [place], [place] [address]Ewabrqyy [Moles/Vol]105 mmol/ZOzfdvg11-032FnrJuqonfCrystal Clinic Orthopedic CenterComment on above:Performed By: #### XENIA, 14787-4, , CBCA #### [facility] ([id number]) [address] [place], [place] [address]EO1 [Moles/Vol]22 mmol/TNssphy76-30PjnAiguxbDelaware County Hospital Comment on above:Performed By: #### XENIA, 86756-3, , CBCA #### [facility] ([id number]) [address] [place], [place] [address]Ldjzsitesb [Mass/Vol]1.29 mg/dLHigh0.40-1.00Crystal Clinic Orthopedic CenterComment on above:Result Comment: METHOD TRACEABLE TO IDMS STANDARD Performed By: #### XENIA, 57157-9, , CBCA #### [facility] ([id number]) [address] [place], [place] [address]TCV/1.73 sq M.predicted among non-blacks MDRD (S/P/Bld) [Vol rate/Area]48 mL/min/{1.73_m2}Low>59ProMercy Health St. Anne HospitalComment on above: Result Comment: Reported eGFR is based on the CKD-EPI 2020 equation that does not use a race coefficient.Performed By: #### XENIA, 85124-6, , CBCA #### [facility] ([id number]) [address] [place], [place] [address]Bipamgh [Mass/Vol]116 mg/oLNtdo09-40ApbPcwehzMercy Health St. Anne Hospital Comment on above:Performed By: #### XENIA, 65634-0, 84354-2, CBCA #### [facility] ([id number]) [address] [place], [place] [address]Aqeumwwgj [Moles/Vol]3.2 mmol/LLow3.5-5.0ProMercy Health St. Anne HospitalComment on above:Performed By: #### XENIA, 01130-7, 58374-0, CBCA #### [facility] ([id number]) [address] [place], [place] [address]Iyuiany [Mass/Vol]7.8 g/dLNormal6.0-8.0ProMercy Health St. Anne HospitalComment on above:Performed By: #### XENIA, 87385-2, , CBCA #### [facility] ([id number]) [address] [place], [place] [address]Jjcwdx [Moles/Vol]136 mmol/ZYebvlg262-418RfqOayjwx Baypark HospitalComment on above:Performed By: #### XENIA, 09872-5, , CBCA #### [facility] ([id number]) [address] [place], [place] [address]Awxk nitrogen [Mass/Vol]30 mg/dLHigh5-23ProMercy Health St. Anne HospitalComment on above:Performed By: #### XENIA, 80983-3, , CBCA #### [facility] ([id number]) [address] [place], [place] [address]GZ ABDOMEN AND PELVIS WO CONTon 07-47-3358NL ABDOMEN AND PELVIS WO CONTCT ABDOMEN AND [...] by Kai Finn MD on 04/28/2023 10:[address] Anne HospitalGlucose Glucometer (BldC) [Mass/Vol]on 14-47-1924Obqxsiw [Mass/Vol]148 mg/wTKdmf29-18GzaWilyobCrystal Clinic Orthopedic CenterGlucose [Mass/Vol]116 mg/uRQavc14-32 [facility] CenterGlucose [Mass/Vol]134 mg/uFGezh01-16AolEngblfCrystal Clinic Orthopedic CenterMAGNESIUMon 42-25-1061Jyocrbuux [Mass/Vol]2.3 mg/dLNormal1.8-2.6 [facility]opedic CenterComment on above:Performed By: #### [facility], 50059-1, 00007-1, CBCA #### [facility] ([id number]) [address] [place], [place] [address]Mijjzcdnsk [Mass/Vol]on 76-22-7859YOURXGEJGZ38.1 ug/mLNormal 5.0-40.0Crystal Clinic Orthopedic CenterComment on above:Result Comment: Peak 30-40 ug/mL Trough 5-20 ug/ml Performed By: #### XENIA, 43046-3, , CBCA #### [facility] ([id number]) [address] [place], [place] [address]KHI AND AUTO DIFFon 55-50-0913QTYPJBNS BASOPHIL0.1 X10E9/LNormal 0.0-0.2ProMedMercy Health Urbana HospitalComment on above:Performed By: #### XENIA, 38513- 0, , CBCA #### [facility] ([id number]) [address] [place], [place] [address]Bqnnmsayo/100 WBC (Bld)1.0 %NormalProMercy Health St. Anne Hospital Comment on above:Performed By: #### XENIA, 57521-7, , CBCA #### [facility] ([id number]) [address] [place], [place] [address]Hoolrnhbeeg distribution width (RBC) [Ratio]17.6 %High11.5-15.0 [facility] CenterComment on above:Performed By: #### XENIA, 88357-5, , CBCA #### [facility] ([id number]) [address] [place], [place] [address]Ixmunorguq (Bld) [Volume fraction]42.6 %Qhyjme06-13LjmSdgltkMercy Health St. Anne HospitalComment on above:Performed By: #### XENIA, 89575-9, , CBCA #### [facility] ([id number]) [address] [place], [place] [address]Yoikyorbjy (Bld) [Mass/Vol]13.6 g/fFEuhtmd00.7-15.5PDelaware County HospitalComment on above:Performed By: #### XENIA, 34946-5, , CBCA #### [facility] ([id number]) [address] [place], [place] [address]TCVYIDIRNV, ATYPICAL1.9 %NormalProMercy Health St. Anne HospitalComment on above:Performed By: #### CMP, 62189-5, , CBCA #### [facility] ([id number]) [address] [place], [place] [address]Oyqpsozepln (Bld) [#/Vol]3.1 10*3/uLNormal1.0-3.5Pro[facility] Medical CenterComment on above:Performed By: #### CMP, 45849-1, 83690-0, CBCA #### [facility] ([id number]) [address] [place], [place] [address]Arsbcfbcayg/100 WBC (Bld)29.5 %NormalProMercy Health St. Anne Hospital Comment on above:Performed By: #### XENIA, 99160-6, , CBCA #### [facility] ([id number]) [address] [place], [place] [address]FRC (RBC) [Entitic mass]27.7 vyLqrdia66-60NajShtsldMercy Health St. Anne HospitalComment on above:Performed By: #### XNEIA, 04174-0, , CBCA #### [facility] ([id number]) [address] [place], [place] [address]BFFQ (RBC) [Mass/Vol]32.0 g/fZZqcmcw11-32ItgAbwzeeMercy Health St. Anne HospitalComment on above:Performed By: #### CMP, 20411-3, , CBCA #### [facility] ([id number]) [address] [place], [place] [address]GZJ (RBC) [Entitic vol]87 sVTpnbjw97-382PktRnjapw [facility] HospitalComment on above:Performed By: #### CMP, 94300-8, 16281-0, CBCA #### [facility] ([id number]) [address] [place], [place] [address]Zubuinbbb (Bld) [#/Vol]1.2 10*3/uLHigh0-0.9ProMercy Health St. Anne HospitalComment on above:Performed By: #### CMP, 74062-4, 91044-0, CBCA #### [facility] ([id number]) [address] [place], [place] [address]Ubvhqtkde/100 WBC (Bld)12.4 %NormalCrystal Clinic Orthopedic Center Comment on above:Performed By: #### XENIA, 67572-0, , CBCA #### [facility] ([id number]) [address] [place], [place] [address]Mygubcezftr (Bld) [#/Vol]5.4 10*3/uLNormal1.5-6.6ProMercy Health St. Anne HospitalComment on above:Performed By: #### XENIA, 44050-5, 24461-6, CBCA #### [facility] ([id number]) [address] [place], [place] [address]Vovifarz mean volume (Bld) [Entitic vol]8.6 fLNormal7-12 ProMedicHolmes County Joel Pomerene Memorial HospitalComment on above:Performed By: #### XENIA, 55260-9, , CBCA #### [facility] ([id number]) [address] [place], [place] [address]Lndhymmia (Bld) [#/Vol]398 10*3/gQLzwfqj058-486JzxYrqhff [facility] HospitalComment on above:Performed By: #### XENIA, 64588-1, , CBCA #### [facility] ([id number]) [address] [place], [place] [address]GXGOBRMUGCALP3+AbnormalNONEProMedica Providence Portland Medical CenterComment on above:Performed By: #### XENIA, 27983-8, , CBCA #### [facility] ([id number]) [address] [place], [place] [address]JPD COUNT4.92 X10E12/LNormal3.80-5.20ProMercy Health St. Anne Hospital Comment on above:Performed By: #### CMP, 75966-1, , CBCA #### [facility] ([id number]) [address] [place], [place] [address]MZI GASPNLBFTE06.2 %NormalProMedica Baypark HospitalComment on above:Performed By: #### CMP, 84288-3, , CBCA #### [facility] ([id number]) [address] [place], [place] [address]XBL (Bld) [#/Vol]9.7 10*3/uLNormal4.0-11.0[facility] HospitalComment on above:Performed By: #### XENIA, 54355-9, , CBCA #### [facility] ([id number]) [address] [place], [place] [address]NAHDPJNNDUZEF METABOLIC PANELon 19-54-0367Xtzmaxj [Mass/Vol]3.8 g/dLNormal3.2-5.3[facility] HospitalComment on above:Performed By: #### XENIA, 19870-9, , CBCA #### [facility] ([id number]) [address] [place], [place] [address]VTC [Catalytic activity/Vol]80 U/QXxufoj30-541FmlMuvurz [facility] HospitalComment on above:Performed By: #### XENIA, 36005-4, , CBCA #### [facility] ([id number]) [address] [place], [place] [address]MQN [Catalytic activity/Vol]49 U/LHigh0-31ProMedOhio State Health System HospitalComment on above:Performed By: #### XENIA, 95714-6, , CBCA #### [facility] ([id number]) [address] [place], [place] [address]Eaqxi gap [Moles/Vol]11 mmol/LNormal5-15[facility] HospitalComment on above:Performed By: #### CMP, 63130-0, , CBCA #### [facility] ([id number]) [address] [place], [place] [address]ETP [Catalytic activity/Vol]26 U/LNormal0-41ProMediSt. Elizabeth Hospital HospitalComment on above:Performed By: #### CMP, 79158-0, , CBCA #### [facility] ([id number]) [address] [place], [place] [address]Cgacnumlp [Mass/Vol]0.5 mg/dLNormal0.3-1.2PDelaware County HospitalComment on above:Performed By: #### XENIA, 82304-2, 95081-7, CBCA #### [facility] ([id number]) [address] [place], [place] [address]Kctleio [Mass/Vol]10.8 mg/dLHigh8.5-10.5PDelaware County HospitalComment on above:Performed By: #### XENIA, 49254-7, , CBCA #### [facility] ([id number]) [address] [place], [place] [address]Kggdjije [Moles/Vol]109 mmol/RRuuivi28-708WmvLzgvlfMercy Health St. Anne HospitalComment on above:Performed By: #### XENIA, 58685-2, , CBCA #### [facility] ([id number]) [address] [place], [place] [address]NP4 [Moles/Vol]20 mmol/DTct20-51EmoOtoozhDelaware County Hospital Comment on above:Performed By: #### XENIA, 88540-9, , CBCA #### [facility] ([id number]) [address] [place], [place] [address]Ncojdywxzt [Mass/Vol]1.00 mg/dLNormal0.40-1.00ProMercy Health St. Anne HospitalComment on above:Result Comment: METHOD TRACEABLE TO IDMS STANDARD Performed By: #### XENIA, 14320-7, , CBCA #### [facility] ([id number]) [address] [place], [place] [address]QTM/1.73 sq M.predicted among non-blacks MDRD (S/P/Bld) [Vol rate/Area]64 mL/min/{1.73_m2}Normal>59ProMercy Health St. Anne HospitalComment on above:Result Comment: Reported eGFR is based on the CKD-EPI 2020 equation that does not use a race coefficient.Performed By: #### XENIA, 56555-3, , CBCA #### [facility] ([id number]) [address] [place], [place] [address]Glabbug [Mass/Vol]144 mg/rSQcoi31-04YwsKaifrkCrystal Clinic Orthopedic Center Comment on above:Performed By: #### XENIA, 33645-0, 76081-9, CBCA #### [facility] ([id number]) [address] [place], [place] [address]Owazgrkxm [Moles/Vol]3.9 mmol/LNormal3.5-5.0ProMercy Health St. Anne HospitalComment on above:Performed By: #### XENIA, 55966-2, , CBCA #### [facility] ([id number]) [address] [place], [place] [address]Gedeccj [Mass/Vol]8.7 g/dLHigh6.0-8.0[facility] Comment on above:Performed By: #### XENIA, 64073-2, , CBCA #### [facility] ([id number]) [address] [place], [place] [address]Mfpwbw [Moles/Vol]140 mmol/XRagnko373-513ZvdRhdjke [facility] HospitalComment on above:Performed By: #### XENIA, 97885-5, , CBCA #### [facility] ([id number]) [address] [place], [place] [address]Cijp nitrogen [Mass/Vol]24 mg/dLHigh5-23ProMercy Health St. Anne HospitalComment on above:Performed By: #### XENIA, 54841-1, , CBCA #### [facility] ([id number]) [address] [place], [place] [address]Dwmgbgo Glucometer (BldC) [Mass/Vol]on 49-37-6780Nbztcfi [Mass/Vol]138 mg/qYJxeq98-02JeuCszonoMercy Health St. Anne HospitalGlucose [Mass/Vol]175 mg/tRRhjk49-22EovNwxolfMercy Health St. Anne HospitalMAGNESIUMon 80-67-5051Mqxuqkqei [Mass/Vol]2.6 mg/dLNormal1.8-2.6ProMercy Health St. Anne HospitalComment on above: Performed By: #### XENIA, 08233-7, 58392-0, CBCA #### [facility] ([id number]) [address] [place], [place] [address]ILUNUWGWIam 88-22-7428Zpvzmhnah [Moles/Vol]3.9 mmol/LNormal 3.5-5.0ProMercy Health St. Anne HospitalComment on above:Performed By: #### XENIA, 01911- 0, , CBCA #### [facility] ([id number]) [address] [place], [place] [address]QZ CHEST 1 VWon 58-41-6047BR CHEST 1 VWXR CHEST 1 VW Clinical History: Pneumonia. Portable Upright chest: 04/28/2023 Comparison: 04/23/2023 Findings: A single portable view of the chest was obtained. There is strandy density in the lower lungs with interval improvement. No pneumothorax or definite pleural effusion is a. Mediastinal contours are stable IMPRESSION: Basilar opacities compatible with atelectasis. Finalized by Saurabh Anderson MD on 04/28/2023 9:[address] Anne HospitalBLOOD CULTUREon 91-11-8483Tezvorhy identified Aer cx Nom (Bld)CULTURE RESULTS NO GROWTH 5 DAYSNormalCrystal Clinic Orthopedic CenterBacteria identified Aer cx Nom (Bld)CULTURE RESULTS NO GROWTH [address] Anne HospitalCBC AND AUTO DIFFon 04-27-2023 ABSOLUTE BASOPHIL0.2 X10E9/LNormal0.0-0.2[facility] Medical CenterComment on above:Performed By: #### XENIA, 28151-8, , CBCA #### [facility] ([id number]) [address] [place], [place] [address]PYUFSBIN NEUTROPHIL3.9 X10E9/LNormal1.5-6.6ProMercy Health St. Anne HospitalComment on above:Performed By: #### CMP, 86229-8, , CBCA #### [facility] ([id number]) [address] [place], [place] [address]Ujzmllcnl/100 WBC (Bld)2.9 %NormalCrystal Clinic Orthopedic Center Comment on above:Performed By: #### CMP, 26791-9, , CBCA #### [facility] ([id number]) [address] [place], [place] [address]Nsnlvakddxe (Bld) [#/Vol]0.1 10*3/uLNormal0.0-0.4ProMercy Health St. Anne HospitalComment on above:Performed By: #### CMP, 00224-7, , CBCA #### [facility] ([id number]) [address] [place], [place] [address]Czudurhpikt/100 WBC (Bld)1.7 %NormalCrystal Clinic Orthopedic Center Comment on above:Performed By: #### CMP, 48594-0, , CBCA #### [facility] ([id number]) [address] [place], [place] [address]Vdervcpmxme distribution width (RBC) [Ratio]17.7 %High11.5-15.0 ProMedicHolmes County Joel Pomerene Memorial HospitalComment on above:Performed By: #### CMP, 80313-2, , CBCA #### [facility] ([id number]) [address] [place], [place] [address]Dsvwkfvacm (Bld) [Volume fraction]38.8 %Numcdi86-38QdqImrzayMercy Health St. Anne HospitalComment on above:Performed By: #### CMP, 29680-9, , CBCA #### [facility] ([id number]) [address] [place], [place] [address]Bssxthfvwu (Bld) [Mass/Vol]12.7 g/qKXznxvd80.7-15.5Pro[facility] CenterComment on above:Performed By: #### CMP, 21046-0, , CBCA #### [facility] ([id number]) [address] [place], [place] [address]Gyjenzgrkqb (Bld) [#/Vol]1.7 10*3/uLNormal1.0-3.5Pro[facility] Medical CenterComment on above:Performed By: #### CMP, 40581-9, , CBCA #### [facility] ([id number]) [address] [place] [place], [place] [address]Dnycqhyafbe/100 WBC (Bld)26.3 %NormalProMercy Health St. Anne Hospital Comment on above:Performed By: #### XENIA, 71575-7, , CBCA #### [facility] ([id number]) [address] [place], [place] [address]XZF (RBC) [Entitic mass]28.2 anVpoukj74-39LsmQpafuzMercy Health St. Anne HospitalComment on above:Performed By: #### XENIA, 54769-6, , CBCA #### [facility] ([id number]) [address] [place], [place] [address]QSJN (RBC) [Mass/Vol]32.7 g/bLJfvnuw63-82LqtWetudlMercy Health St. Anne HospitalComment on above:Performed By: #### CMP, 30940-8, , CBCA #### [facility] ([id number]) [address] [place], [place] [address]MNT (RBC) [Entitic vol]86 cPHboexc29-546YqtKexgag [facility] HospitalComment on above:Performed By: #### CMP, 52451-1, 12296-0, CBCA #### [facility] ([id number]) [address] [place], [place] [address]Bhcazvicy (Bld) [#/Vol]0.7 10*3/uLNormal0-0.9ProMercy Health St[address] Anne HospitalComment on above:Performed By: #### CMP, 99474-0, 28279-8, CBCA #### [facility] ([id number]) [address] [place], [place] [address]Ghggnxrio/100 WBC (Bld)10.1 %NormalCrystal Clinic Orthopedic Center Comment on above:Performed By: #### CMP, 50001-6, 51062-4, CBCA #### [facility] ([id number]) [address] [place], [place] [address]Rhacmucehdl/100 WBC (Bld)59.0 %NormalCrystal Clinic Orthopedic Center Comment on above:Performed By: #### CMP, 47722-0, 78222-3, CBCA #### [facility] ([id number]) [address] [place], [place] [address]Klxpbiky mean volume (Bld) [Entitic vol]8.1 fLNormal7-12 ProMFirelands Regional Medical CenterComment on above:Performed By: #### XENIA, 09277-7, , CBCA #### [facility] ([id number]) [address] [place], [place] [address]Blaknedgq (Bld) [#/Vol]364 10*3/mIZtonhn370-791DsgFpqjip [facility] HospitalComment on above:Performed By: #### XENIA, 66286-0, , CBCA #### [facility] ([id number]) [address] [place], [place] [address]ULX COUNT4.49 X10E12/LNormal3.80-5.20[facility] Comment on above:Performed By: #### CMP, 29448-9, , CBCA #### [facility] ([id number]) [address] [place], [place] [address]OMR (Bld) [#/Vol]6.6 10*3/uLNormal4.0-11.0C[facility] Orthopedic CenterComment on above:Performed By: #### CMP, 34923-9, 11345-8, CBCA #### [facility] ([id number]) [address] [place], [place] [address]UAUKLUKHYTFUK METABOLIC PANELon 29-43-7844Hgbioay [Mass/Vol]3.7 g/dLNormal3.2-5.3ProMedOhio State Health System HospitalComment on above:Performed By: #### XENIA, 91615-9, , CBCA #### [facility] ([id number]) [address] [place], [place] [address]JKO [Catalytic activity/Vol]74 U/DQcbogr93-627TaoPziztoMercy Health St. Anne HospitalComment on above:Performed By: #### XENIA, 78015-3, , CBCA #### [facility] ([id number]) [address] [place], [place] [address]DHW [Catalytic activity/Vol]47 U/LHigh0-31ProMedMercy Health Urbana HospitalComment on above:Performed By: #### XENIA, 69741-6, , CBCA #### [facility] ([id number]) [address] [place], [place] [address]Twtbh gap [Moles/Vol]12 mmol/LNormal5-15ProMercy Health St[address] Anne HospitalComment on above:Performed By: #### XENIA, 83929-5, , CBCA #### [facility] ([id number]) [address] [place], [place] [address]LET [Catalytic activity/Vol]29 U/LNormal0-41ProMercy Health St[address] Anne HospitalComment on above:Performed By: #### XENIA, 51200-5, , CBCA #### [facility] ([id number]) [address] [place], [place] [address]Rpwhsbuqy [Mass/Vol]0.6 mg/dLNormal0.3-1.2PTuscarawas Hospital HospitalComment on above:Performed By: #### CMP, 36343-0, , CBCA #### [facility] ([id number]) [address] [place], [place] [address]Kndsynp [Mass/Vol]10.3 mg/dLNormal8.5-10.5PTuscarawas Hospital HospitalComment on above:Performed By: #### XENIA, 97676-4, , CBCA #### [facility] ([id number]) [address] [place], [place] [address]Sxsmyozn [Moles/Vol]108 mmol/ESsupxb83-096LgyKivqywMercy Health St. Anne HospitalComment on above:Performed By: #### XENIA, 03832-7, 18034-2, CBCA #### [facility] ([id number]) [address] [place], [place] [address]YN0 [Moles/Vol]21 mmol/TNtz56-49VmyWupsvxDelaware County Hospital Comment on above:Performed By: #### XENIA, 96223-9, , CBCA #### [facility] ([id number]) [address] [place], [place] [address]Sciolspibi [Mass/Vol]1.03 mg/dLHigh0.40-1.00ProMercy Health St. Anne HospitalComment on above:Result Comment: METHOD TRACEABLE TO IDMS STANDARD Performed By: #### XENIA, 63688-1, , CBCA #### [facility] ([id number]) [address] [place], [place] [address]NUR/1.73 sq M.predicted among non-blacks MDRD (S/P/Bld) [Vol rate/Area]62 mL/min/{1.73_m2}Normal>59ProMercy Health St[address] Anne HospitalComment on above:Result Comment: Reported eGFR is based on the CKD-EPI 1 equation that does not use a race coefficient.Performed By: #### XENIA, 19461-0, , CBCA #### [facility] ([id number]) [address] [place], [place] [address]Oswbnix [Mass/Vol]121 mg/pQTfym80-01LagHltjieMercy Health St. Anne Hospital Comment on above:Performed By: #### XENIA, 59429-6, , CBCA #### [facility] ([id number]) [address] [place], [place] [address]Nxwwndqux [Moles/Vol]3.3 mmol/LLow3.5-5.0ProMedica [facility] HospitalComment on above:Performed By: #### XENIA, 60548-2, , CBCA #### [facility] ([id number]) [address] [place], [place] [address]Xeecnvj [Mass/Vol]8.3 g/dLHigh6.0-8.0[facility] Comment on above:Performed By: #### XENIA, 43253-6, , CBCA #### [facility] ([id number]) [address] [place], [place] [address]Dmakix [Moles/Vol]141 mmol/ENewdvq037-393KmtNpuhai [facility] HospitalComment on above:Performed By: #### XENIA, 82941-8, , CBCA #### [facility] ([id number]) [address] [place], [place] [address]Ztfj nitrogen [Mass/Vol]17 mg/dLNormal5-23ProMercy Health St[address] Anne HospitalComment on above:Performed By: #### XENIA, 82213-0, , CBCA #### [facility] ([id number]) [address] [place], [place] [address]Lreeqdh Glucometer (BldC) [Mass/Vol]on 80-66-8995Tobsxyq [Mass/Vol]127 mg/sRMebo68-10DvwMwagvkCrystal Clinic Orthopedic CenterGlucose [Mass/Vol]119 mg/pPAgxf50-37CrtBpmopoMercy Health St. Anne HospitalGlucose [Mass/Vol]132 mg/fBCvxl64-07 ProMFirelands Regional Medical CenterGlucose [Mass/Vol]119 mg/yNBsnj06-06MfuUxbtzzCrystal Clinic Orthopedic CenterMAGNESIUMon 88-37-4090Kfxjqduyn [Mass/Vol]2.5 mg/dLNormal1.8-2.6 [facility] CenterComment on above:Performed By: #### XENIA, 01584-5, , CBCA #### [facility] ([id number]) [address] [place], [place] [address]ZTVIIJTMRne 08-44-7327Qhstlutcc [Moles/Vol]3.7 mmol/LNormal 3.5-5.0ProMercy Health St. Anne HospitalComment on above:Performed By: #### XENIA, 16516- 0, , CBCA #### [facility] ([id number]) [address] [place], [place] [address]ZCV AND AUTO DIFFon 38-02-5401MPRCGUPV BASOPHIL0.1 X10E9/LNormal 0.0-0.2[facility] CenterComment on above:Performed By: #### XENIA, 70978- 0, , CBCA #### [facility] ([id number]) [address] [place], [place] [address]JDRJAUBC NEUTROPHIL4.2 X10E9/LNormal1.5-6.6ProMercy Health St. Anne HospitalComment on above:Performed By: #### XENIA, 34475-1, , CBCA #### [facility] ([id number]) [address] [place], [place] [address]Ppolkgttw/100 WBC (Bld)1.1 %NormalCrystal Clinic Orthopedic Center Comment on above:Performed By: #### XENIA, 41989-8, , CBCA #### [facility] ([id number]) [address] [place], [place] [address]Lcnijqwihlw (Bld) [#/Vol]0.0 10*3/uLNormal0.0-0.4ProMercy Health St. Anne HospitalComment on above:Performed By: #### XENIA, 28654-2, , CBCA #### [facility] ([id number]) [address] [place], [place] [address]Ktflznmphay/100 WBC (Bld)0.4 %NormalCrystal Clinic Orthopedic Center Comment on above:Performed By: #### XENIA, 62003-6, , CBCA #### [facility] ([id number]) [address] [place], [place] [address]Afiqawtbvrg distribution width (RBC) [Ratio]17.3 %High11.5-15.0 [facility] Medical CenterComment on above:Performed By: #### XENIA, 72300-9, , CBCA #### [facility] ([id number]) [address] [place], [place] [address]Kizzjiblec (Bld) [Volume fraction]32.3 %Thj81-15OybVmdyihMercy Health St. Anne HospitalComment on above:Performed By: #### XENIA, 89955-4, , CBCA #### [facility] ([id number]) [address] [place] [place], [place] [address]Gcvnpxnkqk (Bld) [Mass/Vol]10.2 g/dLLow11.7-15.5PDelaware County HospitalComment on above:Performed By: #### XENIA, 38813-2, , CBCA #### [facility] ([id number]) [address] [place], [place] [address]Ppcbrestypu (Bld) [#/Vol]1.7 10*3/uLNormal1.0-3.5PDelaware County HospitalComment on above:Performed By: #### XENIA, 71125-7, , CBCA #### [facility] ([id number]) [address] [place], [place] [address]Ipokxkstsml/100 WBC (Bld)25.7 %NormalProMercy Health St. Anne Hospital Comment on above:Performed By: #### XENIA, 90466-3, , CBCA #### [facility] ([id number]) [address] [place], [place] [address]FFR (RBC) [Entitic mass]27.3 xmFqczjo49-77DzlCczkejMercy Health St. Anne HospitalComment on above:Performed By: #### CMP, 20654-1, , CBCA #### [facility] ([id number]) [address] [place], [place] [address]AYXJ (RBC) [Mass/Vol]31.6 g/yIRka17-28IqvWycfln [facility] Comment on above:Performed By: #### CMP, 06319-8, 44838-0, CBCA #### [facility] ([id number]) [address] [place], [place] [address]KFJ (RBC) [Entitic vol]86 yONkixco21-700VkyOzmvsb [facility]park HospitalComment on above:Performed By: #### CMP, 69800-8, 37369-4, CBCA #### [facility] ([id number]) [address] [place], [place] [address]Hoblyfmyb (Bld) [#/Vol]0.6 10*3/uLNormal0-0.9[facility] Orthopedic CenterComment on above:Performed By: #### CMP, 22268-4, 52886-1, CBCA #### [facility] ([id number]) [address] [place], [place] [address]Ocshxpdvp/100 WBC (Bld)9.2 [facility] Comment on above:Performed By: #### CMP, 88364-5, 82568-8, CBCA #### [facility] ([id number]) [address] [place], [place] [address]Mdljhjjdeua/100 WBC (Bld)63.6 %[facility] Comment on above:Performed By: #### CMP, 53686-9, , CBCA #### [facility] ([id number]) [address] [place], [place] [address]Rcphqkjr mean volume (Bld) [Entitic vol]8.4 fLNormal7-12 ProMedicHolmes County Joel Pomerene Memorial HospitalComment on above:Performed By: #### CMP, 31952-0, 22368-1, CBCA #### [facility] ([id number]) [address] [place], [place] [address]Nczlsifgx (Bld) [#/Vol]334 10*3/yIZopmqv337-561WkqRsawhd Baypark HospitalComment on above:Performed By: #### CMP, 14115-3, 94675-9, CBCA #### [facility] ([id number]) [address] [place], [place] [address]LNU COUNT3.74 X10E12/LLow3.80-5.20ProMer[facility] Comment on above:Performed By: #### XENIA, 80977-5, 77253-6, CBCA #### [facility] ([id number]) [address] [place], [place] [address]GBQ (Bld) [#/Vol]6.7 10*3/uLNormal4.0-11.0ProMercy Health St. Anne HospitalComment on above:Performed By: #### XENIA, 33219-9, , CBCA #### [facility] ([id number]) [address] [place], [place] [address]LPMWXHTYFXUPZ METABOLIC PANELon 20-43-0258Htyufjt [Mass/Vol]2.9 g/dLLow3.2-5.3ProMedMercy Health Urbana HospitalComment on above:Performed By: #### XENIA, 57379-0, , CBCA #### [facility] ([id number]) [address] [place], [place] [address]OVU [Catalytic activity/Vol]55 U/VIsocua57-593ShwPumwfoMercy Health St. Anne HospitalComment on above:Performed By: #### XENIA, 02138-8, 67100-0, CBCA #### [facility] ([id number]) [address] [place], [place] [address]NSX [Catalytic activity/Vol]33 U/LHigh0-31PDelaware County HospitalComment on above:Performed By: #### CMP, 35744-1, 03716-4, CBCA #### [facility] ([id number]) [address] [place], [place] [address]Mgbgz gap [Moles/Vol]5 mmol/LNormal5-15ProMercy Health St. Anne HospitalComment on above:Performed By: #### CMP, 37454-3, 66540-0, CBCA #### [facility] ([id number]) [address] [place], [place] [address]OAK [Catalytic activity/Vol]21 U/LNormal0-41ProMercy Health St. Anne HospitalComment on above:Performed By: #### XENIA, 87929-8, , CBCA #### [facility] ([id number]) [address] [place], [place] [address]Qszwiduin [Mass/Vol]0.6 mg/dLNormal0.3-1.2PDelaware County HospitalComment on above:Performed By: #### XENIA, 50916-1, 79362-9, CBCA #### [facility] ([id number]) [address] [place], [place] [address]Zyemdcf [Mass/Vol]9.3 mg/dLNormal8.5-10.5PDelaware County HospitalComment on above:Performed By: #### XENIA, 47944-6, , CBCA #### [facility] ([id number]) [address] [place], [place] [address]Utrqgdrr [Moles/Vol]117 mmol/XIppl98-149WqsInogbpMercy Health St. Anne HospitalComment on above:Performed By: #### XENIA, 71944-9, , CBCA #### [facility] ([id number]) [address] [place], [place] [address]BN2 [Moles/Vol]20 mmol/MPla55-24MmtLhchnjDelaware County Hospital Comment on above:Performed By: #### XENIA, 89943-8, , CBCA #### [facility] ([id number]) [address] [place], [place] [address]Ymhmeevezo [Mass/Vol]0.59 mg/dLNormal0.40-1.00ProMercy Health St. Anne HospitalComment on above:Result Comment: METHOD TRACEABLE TO IDMS STANDARD Performed By: #### XENIA, 69577-1, , CBCA #### [facility] ([id number]) [address] [place], [place] [address]sFCA (CKD-EPI) NON-RACE DEPENDENT>90Normal>59ProMercy Health St[address] Anne HospitalComment on above:Result Comment: Reported eGFR is based on the CKD-EPI 2020 equation that does not use a race coefficient.Performed By: #### XENIA, 01756-5, , CBCA #### [facility] ([id number]) [address] [place], [place] [address]Evideex [Mass/Vol]95 mg/iKEzvugj82-31IjbYaurkxMercy Health St. Anne Hospital Comment on above:Performed By: #### XENIA, 93362-4, , CBCA #### [facility] ([id number]) [address] [place], [place] [address]Khuzynsww [Moles/Vol]3.4 mmol/LLow3.5-5.0ProMercy Health St. Anne HospitalComment on above:Performed By: #### XENIA, 90532-7, , CBCA #### [facility] ([id number]) [address] [place], [place] [address]Dazpynk [Mass/Vol]6.6 g/dLNormal6.0-8.0C[facility] Clinic Orthopedic CenterComment on above:Performed By: #### XENIA, 03441-3, , CBCA #### [facility] ([id number]) [address] [place], [place] [address]Gojbjk [Moles/Vol]142 mmol/MSzvwon486-755KxjCwulaz [facility] HospitalComment on above:Performed By: #### XENIA, 58419-2, , CBCA #### [facility] ([id number]) [address] [place], [place] [address]Naeu nitrogen [Mass/Vol]12 mg/dLNormal5-23ProMercy Health St. Anne HospitalComment on above:Performed By: #### XENIA, 07422-3, , CBCA #### [facility] ([id number]) [address] [place], [place] [address]Cnfnnfx Glucometer (BldC) [Mass/Vol]on 40-44-7228Irkzspj [Mass/Vol]111 mg/kYEyrd99-96IgmJllclbMercy Health St. Anne HospitalGlucose [Mass/Vol]118 mg/kIEoph86-18RvcQwcako Baypark HospitalGlucose [Mass/Vol]225 mg/gGQohw74-17 ProMedicHolmes County Joel Pomerene Memorial HospitalGlucose [Mass/Vol]105 mg/sFQbds11-19WuaLbypgxMercy Health St. Anne HospitalMAGNESIUMon 75-48-7715Rkwttjhqx [Mass/Vol]2.2 mg/dLNormal1.8-2.6 ProMFirelands Regional Medical CenterComment on above:Performed By: #### XENIA, 89667-5, 05404-2, CBCA #### [facility] ([id number]) [address] [place], [place] [address]WWLNWVIZKkp 22-66-5386Vkudjayoz [Moles/Vol]4.0 mmol/LNormal 3.5-5.0ProMercy Health St. Anne HospitalComment on above:Performed By: #### XENIA, 93715- 0, , CBCA #### [facility] ([id number]) [address] [place], [place] [address]NUKBC METABOLIC PANLon 29-64-0960Eohbe gap [Moles/Vol]6 mmol/L Normal5-15ProMercy Health St. Anne HospitalComment on above:Performed By: #### XENIA, 39125-0, , CBCA #### [facility] ([id number]) [address] [place], [place] [address]Uqawelh [Mass/Vol]9.6 mg/dLNormal8.5-10.5ProMedica [facility] Portland Medical CenterComment on above:Performed By: #### XENIA, 14033-4, , CBCA #### [facility] ([id number]) [address] [place], [place] [address]Insnwrjs [Moles/Vol]115 mmol/FPkid78-918QjnGwldyqMercy Health St. Anne HospitalComment on above:Performed By: #### XENIA, 32657-9, , CBCA #### [facility] ([id number]) [address] [place], [place] [address]LQ2 [Moles/Vol]18 mmol/FQjj41-14IiqXsfxxmDelaware County Hospital Comment on above:Performed By: #### XENIA, 12813-2, , CBCA #### [facility] ([id number]) [address] [place], [place] [address]Kabnykxgrs [Mass/Vol]0.56 mg/dLNormal0.40-1.00C[facility] Clinic Orthopedic CenterComment on above:Result Comment: METHOD TRACEABLE TO IDMS STANDARD Performed By: #### XENIA, 61577-8, 20231-4, CBCA #### [facility] ([id number]) [address] [place], [place] [address]yUBL (CKD-EPI) NON-RACE DEPENDENT>90Normal>59ProMercy Health St[address] Anne HospitalComment on above:Result Comment: Reported eGFR is based on the CKD-EPI 2020 equation that does not use a race coefficient.Performed By: #### XENIA, 74968-3, , CBCA #### [facility] ([id number]) [address] [place], [place] [address]Tizsbjo [Mass/Vol]86 mg/yLHxovnc88-82LhjTqcssbCrystal Clinic Orthopedic Center Comment on above:Performed By: #### XENIA, 57178-0, , CBCA #### [facility] ([id number]) [address] [place], [place] [address]Ttzeotqwf [Moles/Vol]3.5 mmol/LNormal3.5-5.0C[facility] Orthopedic CenterComment on above:Performed By: #### XENIA, 22537-7, 29227-5, CBCA #### [facility] ([id number]) [address] [place], [place] [address]Zvicpq [Moles/Vol]139 mmol/FYhgepc284-699VgrHqgypt [facility] HospitalComment on above:Performed By: #### XENIA, 96969-2, 99134-5, CBCA #### [facility] ([id number]) [address] [place], [place] [address]Qeuo nitrogen [Mass/Vol]14 mg/dLNormal5-23ProMercy Health St. Anne HospitalComment on above:Performed By: #### XENIA, 23219-9, 21198-9, CBCA #### [facility] ([id number]) [address] [place], [place] [address]GIGOGIEY BLOOD COUNTon 17-30-4717Wvdyhvmgwju distribution width (RBC) [Ratio]18.1 %High11.5-15.0ProMercy Health St. Anne HospitalComment on above: Performed By: #### XENIA, 87406-9, , CBCA #### [facility] ([id number]) [address] [place], [place] [address]Qbdqdeyzvm (Bld) [Volume fraction]32.2 %Muu28-72GinWtmzicMercy Health St. Anne HospitalComment on above:Performed By: #### XENIA, 44487-8, , CBCA #### [facility] ([id number]) [address] [place], [place] [address]Cdgvrliiux (Bld) [Mass/Vol]10.1 g/dLLow11.7-15.5PBayne Jones Army Community Hospitalica Providence Portland Medical CenterComment on above:Performed By: #### XENIA, 22801-5, , CBCA #### [facility] ([id number]) [address] [place], [place] [address]JCR (RBC) [Entitic mass]27.4 nfCbipsu19-13ZcdNqzriqMercy Health St. Anne HospitalComment on above:Performed By: #### XENIA, 84495-3, 37890-4, CBCA #### [facility] ([id number]) [address] [place], [place] [address]WFAJ (RBC) [Mass/Vol]31.5 g/cGXjy87-14YpxQrzqonMercy Health St. Anne Hospital Comment on above:Performed By: #### XENIA, 68783-6, 51696-0, CBCA #### [facility] ([id number]) [address] [place], [place] [address]AUZ (RBC) [Entitic vol]87 kBQfqgen05-208RtqFnpioh [facility] HospitalComment on above:Performed By: #### XENIA, 54067-3, 79836-9, CBCA #### [facility] ([id number]) [address] [place], [place] [address]Vqpfnkxe mean volume (Bld) [Entitic vol]8.7 fLNormal7-12 ProMFirelands Regional Medical CenterComment on above:Performed By: #### XENIA, 44798-4, 44776-0, CBCA #### [facility] ([id number]) [address] [place], [place] [address]Jikrcqnrx (Bld) [#/Vol]343 10*3/aBSihohp006-041YzkJxapps [facility] HospitalComment on above:Performed By: #### XENIA, 44148-1, , CBCA #### [facility] ([id number]) [address] [place], [place] [address]AKY COUNT3.70 X10E12/LLow3.80-5.20[facility] Comment on above:Performed By: #### XENIA, 25487-3, , CBCA #### [facility] ([id number]) [address] [place], [place] [address]QKA (Bld) [#/Vol]7.6 10*3/uLNormal4.0-11.0[facility] Orthopedic CenterComment on above:Performed By: #### XENIA, 69680-4, , CBCA #### [facility] ([id number]) [address] [place], [place] [address]Xigpvpq Glucometer (BldC) [Mass/Vol]on 35-56-4835Wwwcshd [Mass/Vol]160 mg/vRIhre15-87XppSjdfjjCrystal Clinic Orthopedic CenterGlucose [Mass/Vol]126 mg/dPTfzc44-45DchSlwlqiCrystal Clinic Orthopedic CenterGlucose [Mass/Vol]128 mg/fOArfp42-37 ProMFirelands Regional Medical CenterGlucose [Mass/Vol]158 mg/fTEtbs70-61YleAxwxncMercy Health St. Anne HospitalGlucose [Mass/Vol]82 mg/rTFxfpet50-37KifAtsttiMercy Health St. Anne HospitalGlucose [Mass/Vol]93 mg/nQXsthrv45-79AkmRxlrivMercy Health St. Anne HospitalMAGNESIUMon 04-25-2023 Magnesium [Mass/Vol]2.1 mg/dLNormal1.8-2.6ProMercy Health St. Anne HospitalComment on above:Performed By: #### XENIA, 95618-6, 25581-4, CBCA #### [facility] ([id number]) [address] [place], [place] [address]QFICBFGBFSfd 17-85-8385Uqzvqnmck [Mass/Vol]3.2 mg/dLNormal 2.4-4.9ProMercy Health St. Anne HospitalComment on above:Performed By: #### XENIA, 47781- 0, , CBCA #### [facility] ([id number]) [address] [place], [place] [address]OCIKHDFZLzu 34-55-7527Vabobvvwn [Moles/Vol]3.7 mmol/LNormal 3.5-5.0ProMercy Health St. Anne HospitalComment on above:Performed By: #### XENIA, 77437- 0, , CBCA #### [facility] ([id number]) [address] [place], [place] [address]Tbjuodnoqh trough [Mass/Vol]on 43-16-5269MGWZWEYBES KUJSRT35.7 ug/mLHigh5.0-20.0[facility] Orthopedic CenterComment on above:Performed By: #### XENIA, 04297-5, 63785-4, CBCA #### [facility] ([id number]) [address] [place], [place] [address]nazvRHEbuqh [Mass/Vol]on 27-06-6862YZBFWMPTIRO<0.5Low1.0-13.0 ProMFirelands Regional Medical CenterComment on above:Result Comment: NOTE This test was developed and its performance characteristics determined by [facility] [place] ([facility]). It has not been cleared or approved by the FDA. -[facility] is regulated under CLIA as qualified to perform high-complexity testing. This test is used for clinical purposes. It should not be regarded as investigational or for research. Test Performed By: [place] [address] Donor Services Team Leader: Davian Holloway III, M.D. CLIA #[id number] By: #### XENIA, 70828-0, , CBCA #### [facility] ([id number]) [address] [place], [place] [address]CGLSI METABOLIC PANLon 88-22-7095Vfnqi gap [Moles/Vol]9 mmol/L Normal5-15ProMercy Health St. Anne HospitalComment on above:Performed By: #### XENIA, 85451-3, , CBCA #### [facility] ([id number]) [address] [place], [place] [address]Utbduqg [Mass/Vol]9.9 mg/dLNormal8.5-10.5PDelaware County HospitalComment on above:Performed By: #### XENIA, 53760-9, , CBCA #### [facility] ([id number]) [address] [place], [place] [address]Yevcwncc [Moles/Vol]112 mmol/GLkau19-326TmaJprmwyMercy Health St. Anne HospitalComment on above:Performed By: #### XENIA, 37550-6, , CBCA #### [facility] ([id number]) [address] [place], [place] [address]JU9 [Moles/Vol]17 mmol/LXft97-44GxfCdckpaDelaware County Hospital Comment on above:Performed By: #### XENIA, 56501-6, 46301-9, CBCA #### [facility] ([id number]) [address] [place], [place] [address]Vplzsmofln [Mass/Vol]0.68 mg/dLNormal0.40-1.00ProMercy Health St. Anne HospitalComment on above:Result Comment: METHOD TRACEABLE TO IDMS STANDARD Performed By: #### XENIA, 25069-5, 92492-5, CBCA #### [facility] ([id number]) [address] [place], [place] [address]vGTH (CKD-EPI) NON-RACE DEPENDENT>90Normal>59ProMercy Health St[address] Anne HospitalComment on above:Result Comment: Reported eGFR is based on the CKD-EPI 2020 equation that does not use a race coefficient.Performed By: #### XENIA, 50341-1, , CBCA #### [facility] ([id number]) [address] [place], [place] [address]Iqnnggd [Mass/Vol]134 mg/eGLvff10-37CqoAhywfjCrystal Clinic Orthopedic Center Comment on above:Performed By: #### XENIA, 92778-1, 13330-2, CBCA #### [facility] ([id number]) [address] [place], [place] [address]Uutkztdar [Moles/Vol]4.2 mmol/LNormal3.5-5.0ProMercy Health St. Anne HospitalComment on above:Performed By: #### XENIA, 30129-1, , CBCA #### [facility] ([id number]) [address] [place], [place] [address]Autbxi [Moles/Vol]138 mmol/JJvlzzi744-687FcoLxktas [facility] HospitalComment on above:Performed By: #### XENIA, 90245-2, , CBCA #### [facility] ([id number]) [address] [place], [place] [address]Lawn nitrogen [Mass/Vol]15 mg/dLNormal5-23ProMercy Health St. Anne HospitalComment on above:Performed By: #### XENIA, 32144-2, , CBCA #### [facility] ([id number]) [address] [place], [place] [address]DSR AND AUTO DIFFon 75-17-1245BCPSGMGU BASOPHIL0.1 X10E9/LNormal 0.0-0.2ProMedica [facility] Medical CenterComment on above:Performed By: #### CMP, 20031- 0, , CBCA #### [facility] ([id number]) [address] [place], [place] [address]HCOUEEDN NEUTROPHIL5.1 X10E9/LNormal1.5-6.6ProMercy Health St. Anne HospitalComment on above:Performed By: #### CMP, 07733-4, , CBCA #### [facility] ([id number]) [address] [place], [place] [address]Zdtibnjhw/100 WBC (Bld)1.0 %NormalCrystal Clinic Orthopedic Center Comment on above:Performed By: #### XENIA, 08080-3, , CBCA #### [facility] ([id number]) [address] [place], [place] [address]Byxlbogpdro (Bld) [#/Vol]0.0 10*3/uLNormal0.0-0.4ProMercy Health St. Anne HospitalComment on above:Performed By: #### CMP, 24467-6, , CBCA #### [facility] ([id number]) [address] [place], [place] [address]Ycxeagycvwn/100 WBC (Bld)0.5 %NormalCrystal Clinic Orthopedic Center Comment on above:Performed By: #### XENIA, 95467-9, , CBCA #### [facility] ([id number]) [address] [place], [place] [address]Bmnoniifbcn distribution width (RBC) [Ratio]17.4 %High11.5-15.0 [facility] Medical CenterComment on above:Performed By: #### CMP, 82001-9, , CBCA #### [facility] ([id number]) [address] [place], [place] [address]Mlcjpseqdb (Bld) [Volume fraction]31.9 %Wee11-17TqjPlnyguMercy Health St. Anne HospitalComment on above:Performed By: #### CMP, 64448-9, , CBCA #### [facility] ([id number]) [address] [place], [place] [address]Vrwqbhzcxa (Bld) [Mass/Vol]9.8 g/dLLow11.7-15.5PDelaware County HospitalComment on above:Performed By: #### CMP, 11232-5, 66678-4, CBCA #### [facility] ([id number]) [address] [place], [place] [address]Jmmcibhqgum (Bld) [#/Vol]2.5 10*3/uLNormal1.0-3.5PDelaware County HospitalComment on above:Performed By: #### CMP, 15086-3, , CBCA #### [facility] ([id number]) [address] [place], [place] [address]Kdzvrrezljn/100 WBC (Bld)28.0 %NormalCrystal Clinic Orthopedic Center Comment on above:Performed By: #### CMP, 83196-3, , CBCA #### [facility] ([id number]) [address] [place], [place] [address]RUL (RBC) [Entitic mass]27.0 uiOjeclu76-02SyoRhnrgcCrystal Clinic Orthopedic CenterComment on above:Performed By: #### CMP, 70926-3, , CBCA #### [facility] ([id number]) [address] [place], [place] [address]UJDS (RBC) [Mass/Vol]30.8 g/jVEwb04-76BezZqrhjaCrystal Clinic Orthopedic Center Comment on above:Performed By: #### CMP, 66246-0, , CBCA #### [facility] ([id number]) [address] [place], [place] [address]MZV (RBC) [Entitic vol]88 qPVddwnd48-485VnsAiehvs [facility] HospitalComment on above:Performed By: #### CMP, 51117-1, 81920-3, CBCA #### [facility] ([id number]) [address] [place], [place] [address]Ahtmpkdih (Bld) [#/Vol]1.1 10*3/uLHigh0-0.9C[facility] Clinic Orthopedic CenterComment on above:Performed By: #### CMP, 08459-9, 51883-4, CBCA #### [facility] ([id number]) [address] [place], [place] [address]Wffxlsctp/100 WBC (Bld)12.1 %NormalCrystal Clinic Orthopedic Center Comment on above:Performed By: #### CMP, 39007-1, 37692-5, CBCA #### [facility] ([id number]) [address] [place], [place] [address]Cmmkkqxbzcl/100 WBC (Bld)58.4 %[facility] Comment on above:Performed By: #### CMP, 46891-8, 10679-3, CBCA #### [facility] ([id number]) [address] [place], [place] [address]Mlzaucdr mean volume (Bld) [Entitic vol]7.8 fLNormal7-12 [facility]opedic CenterComment on above:Performed By: #### CMP, 36764-2, , CBCA #### [facility] ([id number]) [address] [place], [place] [address]Oiusllucd (Bld) [#/Vol]322 10*3/iDTwihlm081-857SuiCchoev [facility] HospitalComment on above:Performed By: #### CMP, 26320-2, , CBCA #### [facility] ([id number]) [address] [place], [place] [address]HJO COUNT3.64 X10E12/LLow3.80-5.20[facility] Comment on above:Performed By: #### CMP, 32647-1, 81070-6, CBCA #### [facility] ([id number]) [address] [place], [place] [address]GSN (Bld) [#/Vol]8.8 10*3/uLNormal4.0-11.0ProWright-Patterson Medical Center HospitalComment on above:Performed By: #### XENIA, 64232-3, , CBCA #### [facility] ([id number]) [address] [place], [place] [address]LKXUNRHBKTWYK METABOLIC PANELon 28-25-6951Zchaqrk [Mass/Vol]2.9 g/dLLow3.2-5.3ProMedOhio State Health System HospitalComment on above:Performed By: #### XENIA, 32922-0, , CBCA #### [facility] ([id number]) [address] [place], [place] [address]VZK [Catalytic activity/Vol]52 U/PVddfui44-878ElgOczqpqMercy Health St. Anne HospitalComment on above:Performed By: #### XENIA, 65471-6, , CBCA #### [facility] ([id number]) [address] [place], [place] [address]HMS [Catalytic activity/Vol]21 U/LNormal0-31PDelaware County HospitalComment on above:Performed By: #### XENIA, 09396-6, , CBCA #### [facility] ([id number]) [address] [place], [place] [address]Rzasp gap [Moles/Vol]8 mmol/LNormal5-15ProMercy Health St. Anne HospitalComment on above:Performed By: #### XENIA, 43281-3, , CBCA #### [facility] ([id number]) [address] [place], [place] [address]VHF [Catalytic activity/Vol]22 U/LNormal0-41ProW[facility]-Pat[facility] HospitalComment on above:Performed By: #### XENIA, 28350-4, , CBCA #### [facility] ([id number]) [address] [place], [place] [address]Cufzwadmv [Mass/Vol]0.8 mg/dLNormal0.3-1.2PTuscarawas Hospital HospitalComment on above:Performed By: #### CMP, 85385-1, , CBCA #### [facility] ([id number]) [address] [place], [place] [address]Xyhnrye [Mass/Vol]9.4 mg/dLNormal8.5-10.5PDelaware County HospitalComment on above:Performed By: #### CMP, 00125-1, , CBCA #### [facility] ([id number]) [address] [place], [place] [address]Axuiizkt [Moles/Vol]117 mmol/TGdqd30-420OjiOkzohcMercy Health St. Anne HospitalComment on above:Performed By: #### XENIA, 95154-7, , CBCA #### [facility] ([id number]) [address] [place], [place] [address]IG6 [Moles/Vol]18 mmol/JCwz10-54SuoMagfcfDelaware County Hospital Comment on above:Performed By: #### XENIA, 75403-2, , CBCA #### [facility] ([id number]) [address] [place], [place] [address]Ymklnstmyr [Mass/Vol]0.59 mg/dLNormal0.40-1.00ProMercy Health St. Anne HospitalComment on above:Result Comment: METHOD TRACEABLE TO IDMS STANDARD Performed By: #### XENIA, 19300-5, , CBCA #### [facility] ([id number]) [address] [place], [place] [address]Apvjwxf [Mass/Vol]90 mg/pVEwpqef20-04KtnCtuulhCrystal Clinic Orthopedic Center Comment on above:Performed By: #### [facility], 14468-9, , CBCA #### [facility] ([id number]) [address] [place], [place] [address]Nsqpdfabk [Moles/Vol]3.6 mmol/LNormal3.5-5.0ProMercy Health St. Anne HospitalComment on above:Performed By: #### XENIA, 61133-9, , CBCA #### [facility] ([id number]) [address] [place], [place] [address]Hpuuptb [Mass/Vol]6.9 g/dLNormal6.0-8.0ProMercy Health St. Anne HospitalComment on above:Performed By: #### XENIA, 72122-3, , CBCA #### [facility] ([id number]) [address] [place], [place] [address]Bevasj [Moles/Vol]143 mmol/GGrwyuf587-446EcwAdhsma Baypark HospitalComment on above:Performed By: #### XENIA, 55114-8, , CBCA #### [facility] ([id number]) [address] [place], [place] [address]Hzgmowk.ionized (Bld) [Moles/Vol]on 89-39-0063IKZNYBOT ICA5.5 mg/dLHigh4.5-5.3ProMedMercy Health Urbana HospitalComment on above:Performed By: #### XENIA, 38418-5, , CBCA #### [facility] ([id number]) [address] [place], [place] [address]Pxpbhvf Glucometer (BldC) [Mass/Vol]on 03-03-1687Fhgejjo [Mass/Vol]87 mg/nYQuxdgk41-23IewDkudwkMercy Health St. Anne HospitalGlucose [Mass/Vol]82 mg/sUXadari48-83OazKgcpqeMercy Health St. Anne HospitalGlucose [Mass/Vol]90 mg/pJXlkvii34-00 [facility] CenterMAGNESIUMon 04-53-2668Xhbbfrqra [Mass/Vol]2.0 mg/dL Normal1.8-2.6ProMercy Health St. Anne HospitalComment on above:Performed By: #### XENIA, 54524-6, , CBCA #### [facility] ([id number]) [address] [place], [place] [address]AFPQMJFEJEjq 44-10-5774Vfyapyskn [Mass/Vol]3.4 mg/dLNormal 2.4-4.9[facility] HospitalComment on above:Performed By: #### XENIA, 06579- 0, , CBCA #### [facility] ([id number]) [address] [place], [place] [address]NMQAOYVAKej 91-24-9885Askxpwpwi [Moles/Vol]3.5 mmol/LNormal 3.5-5.0ProW[facility]-Pat[facility] HospitalComment on above:Performed By: #### XENIA, 81639- 0, , CBCA #### [facility] ([id number]) [address] [place], [place] [address]Idzmshxpf [Moles/Vol]3.7 mmol/LNormal3.5-5.0ProWright-Pat[facility] HospitalComment on above:Performed By: #### XENIA, 27750-6, , CBCA #### [facility] ([id number]) [address] [place], [place] [address]GXUSSUND BLOOD GASon 86-47-0975QIJRG'S TESTPassNormalProWright-Patterson Medical Center HospitalComment on above:Performed By: #### ABG ####[facility] ([id number])[address] [place], [place] [address]TXFA,DEFICIT4.0 MMOL/LHigh 0.0-2.0ProWright-Patterson Medical Center HospitalComment on above:Performed By: #### ABG ####[facility] ([id number])[address] [place], [place] [address]Fmuj argfcannemf16.6 [degF]Cbvqct91.0ProWright-Pat[facility] Medical Center HospitalComment on above: Performed By: #### ABG ####[facility] ([id number])[address] [place], [place] [address]MFT9 (Bld) [Moles/Vol]21.0 mmol/YWzx05-08MfgOccflv [facility] HospitalComment on above:Performed By: #### ABG ####[facility] ([id number])[address] [place], [place] [address]ZYFR. O2 CONC.40 %NormalProMedica Baypark HospitalComment on above:Performed By: #### ABG ####[facility] ([id number])[address] [place], [place] [address]Nvutjs (Bld) [Partial pressure]76 mm[Hg]Xkq43-153OulRikotvMercy Health St. Anne HospitalComment on above:Performed By: #### ABG ####[facility] ([id number])[address] [place], [place] [address]Eagvsa saturation in Blood95.0 %Normal>90ProMercy Health St[facility] Comment on above:Performed By: #### ABG ####[facility] ([id number])[address] [place] [address]KKLWRC SOURCEVentNormMercy Health – The Jewish HospitalComment on above:Performed By: #### ABG ####[facility] ([id number])[address] [place] [address]FLE505.0 ZHXTKmfytz38-53 [facility] CenterComment on above:Performed By: #### ABG ####[facility] ([id number])[address] [place], [place] [address]cA (Bld)7.362 [pH]Normal7.350-7.450ProMercy Health St. Anne HospitalComment on above:Performed By: #### ABG ####[facility] ([id number])[address] [place] [address]SOXHKD SITERBrachNormMercy Health – The Jewish HospitalComment on above:Performed By: #### ABG ####[facility] ([id number])[address] [place] [address]XMJGAM TYPEARTERIALNormalCrystal Clinic Orthopedic CenterComment on above:Performed By: #### ABG ####[facility] ([id number])[address] [place] [address]HHHDZ CULTUREon 04-94-9184Gobgeeff identified Aer cx Nom (Bld)CULTURE RESULTS NO GROWTH 5 DAYSNormalCrystal Clinic Orthopedic CenterBacteria identified Aer cx Nom (Bld)CULTURE RESULTS NO GROWTH [address] Anne HospitalCBC AND AUTO DIFFon 04-23-2023 ABSOLUTE BASOPHIL0.0 X10E9/LNormal0.0-0.2ProMedMercy Health Urbana HospitalComment on above:Performed By: #### 31232-4, , 1987-08, 2275-07, CMP, CBCA ####[facility] ([id number])[address] [place], [place] [address]BPZVXHJL NEUTROPHIL4.8 X10E9/LNormal1.5-6.6ProMercy Health St. Anne HospitalComment on above: Performed By: #### 34656-7, , 1987-08, 2275-07, CMP, CBCA ####[facility] ([id number])[address] [place], [place] [address]Uojfwlpex/100 WBC (Bld)0.5 %NormalProMercy Health St. Anne HospitalComment on above:Performed By: #### 31533-2, , 1987-08, 2275-07, CMP, CBCA ####[facility] ([id number])[address] [place], [place] [address]Egdfdcnutso (Bld) [#/Vol]0.1 10*3/uL Normal0.0-0.4C[facility] Clinic Orthopedic CenterComment on above:Performed By: #### 16305-5, , 1987-08, 2275-07, CMP, CBCA ####[facility] ([id number])[address] [place], [place] [address]Uhqrtisgnax/100 WBC (Bld)0.8 %Normal ProMFirelands Regional Medical CenterComment on above:Performed By: #### 94997-4, , 1987-08, 2275-07, CMP, CBCA ####[facility] ([id number])[address] [place], [place] [address]Esjdloqeeuj distribution width (RBC) [Ratio]19.7 %High 11.5-15.0ProMercy Health St. Anne HospitalComment on above:Performed By: #### 43275-8, , 1987-08, 2275-07, CMP, CBCA ####[facility] ([facility] 36127)[address] [place], [place] [address]Djhemjfitu (Bld) [Volume fraction]32.6 % Jvw75-17StdQpdfbx [facility] CenterComment on above:Performed By: #### 81133-5, , 1987-08, 2275-07, CMP, CBCA ####[facility] ([facility] 95279)[address] [place], [place] [address]Pyyclonefp (Bld) [Mass/Vol]10.4 g/dLLow 11.7-15.5ProMedMercy Health Urbana HospitalComment on above:Performed By: #### 18799-7, , 1987-08, 2275-07, CMP, CBCA ####[facility] ([facility] 04924)[address] [place], [place] [address]Yrlxqzcdwmw (Bld) [#/Vol]1.5 10*3/uLNormal 1.0-3.5PDelaware County HospitalComment on above:Performed By: #### 75804-7, , 1987-08, 2275-07, CMP, CBCA ####[facility] ([facility] 03075)[address] [place], [place] [address]Arnlbtnijgt/100 WBC (Bld)20.9 %Normal [facility] CenterComment on above:Performed By: #### 43254-8, , 1987-08, 2275-07, CMP, CBCA ####[facility] ([id number])[address] [place], [place] [address]TMT (RBC) [Entitic mass]27.2 uqCorgrh40-66AirPvtiryMercy Health St. Anne HospitalComment on above:Performed By: #### 16015-4, , 1987-08, 2275-07, CMP, CBCA ####[facility] ([id number])[address] [place], [place] [address]HCII (RBC) [Mass/Vol]31.7 g/zMJkk42-99LgwZvmboj [facility] HospitalComment on above:Performed By: #### 75419-2, , 1987-08, 2275-07, CMP, CBCA ####[facility] ([id number])[address] [place], [place] [address]EGC (RBC) [Entitic vol]86 pHYlqxnp82-891GpvRpodvk [facility] HospitalComment on above:Performed By: #### 40144-1, , 1987-08, 2275-07, CMP, CBCA ####[facility] ([id number])[address] [place], [place] [address]Jmrmywtnf (Bld) [#/Vol]0.7 10*3/uLNormal0-0.9ProMercy Health St. Anne HospitalComment on above: Performed By: #### 63268-4, , 1987-08, 2275-07, CMP, CBCA ####[facility] ([id number])[address] [place], [place] [address]Xhxniafvl/100 WBC (Bld)10.2 %NormalProWright-Patterson Medical Center HospitalComment on above:Performed By: #### 49274-8, , 1987-08, 2275-07, CMP, CBCA ####[facility] ([id number])[address] [place], [place] [address]Ixerebnxovm/100 WBC (Bld)67.6 % NormalProWright-Patterson Medical Center HospitalComment on above:Performed By: #### 60232-9, 0, 1987-08, 2275-07, CMP, CBCA ####[facility] ([id number])[address] [place], [place] [address]Khehvuoa mean volume (Bld) [Entitic vol] 8.1 fLNormal7-12[facility] HospitalComment on above:Performed By: #### 98346-4, , 1987-08, 2275-07, CMP, CBCA ####[facility] ([id number])[address] [place], [place] [address]Mwxbvbgdt (Bld) [#/Vol]362 10*3/uL Dlgacu453-780VmpOlhrydMercy Health St. Anne HospitalComment on above:Performed By: #### 32788-5, , 1987-08, 2275-07, CMP, CBCA ####[facility] ([id number])[address] [place], [place] [address]NNH COUNT3.81 X10E12/LNormal 3.80-5.20ProMercy Health St. Anne HospitalComment on above:Performed By: #### 78488-5, , 1987-08, 2275-07, CMP, CBCA ####[facility] ([id number])[address] [place], [place] [address]IMY morphology finding Nom (Bld)NORMAL NormalProMercy Health St. Anne HospitalComment on above:Performed By: #### 77786-6, , 1987-08, 2275-07, CMP, CBCA ####[facility] ([id number])[address] [place], [place] [address]RAG (Bld) [#/Vol]7.1 10*3/uLNormal4.0-11.0 [facility] CenterComment on above:Performed By: #### 16031-0, , 1987-08, 2275-07, CMP, CBCA ####[facility] ([id number])[address] [place], [place] [address]FUXLGJPJHARDG METABOLIC PANELon 98-35-3712Ehihvhf [Mass/Vol]3.0 g/dLLow3.2-5.3[facility] CenterComment on above:Performed By: #### 48299-0, , 1987-08, 2275-07, CMP, CBCA ####[facility] ([id number])[address] [place], [place] [address]SAD [Catalytic activity/Vol]62 U/VSzlsrc64-153QzxMarbycMercy Health St. Anne HospitalComment on above: Performed By: #### 18079-5, 0, 1987-08, 2275-07, CMP, CBCA ####[facility] ([id number])[address] [facility] [place], [place] [address]QXH [Catalytic activity/Vol]18 U/LNormal0-31ProMedMercy Health Urbana HospitalComment on above: Performed By: #### 50421-1, , 1987-08, 2275-07, CMP, CBCA ####[facility] ([id number])[address] [place] [place], [place] [address]Fdmlz gap [Moles/Vol]5 mmol/LNormal5-15ProMercy Health St. [facility] HospitalComment on above: Performed By: #### 69947-2, , 1987-08, 2275-07, CMP, CBCA ####[facility] ([id number])[address] [facility] [place], [place] [address]YLE [Catalytic activity/Vol]18 U/LNormal0-41ProMercy Health St. Anne HospitalComment on above: Performed By: #### 38812-5, , 1987-08, 2275-07, CMP, CBCA ####[facility] ([id number])[address] [place], [place] [address]Nbgusqflr [Mass/Vol]0.6 mg/dLNormal0.3-1.2PTuscarawas Hospital HospitalComment on above: Performed By: #### 91706-9, , 1987-08, 2275-07, CMP, CBCA ####[facility] ([id number])[address] [place], [place] [address]Xhanllm [Mass/Vol]9.8 mg/dLNormal8.5-10.5PTuscarawas Hospital HospitalComment on above: Performed By: #### 16122-8, 0, 1987-08, 2275-07, CMP, CBCA ####[facility] ([id number])[address] [place], [place] [address]Mgjexnih [Moles/Vol]118 mmol/YNuba37-128BxtIffxfgMercy Health St. Anne HospitalComment on above: Performed By: #### 89581-0, , 1987-08, 2275-07, XENIA, CBCA ####[facility] ([id number])[address] [place], [place] [address]ET7 [Moles/Vol]23 mmol/KLumikt79-59NzoCveuuo [facility] HospitalComment on above:Performed By: #### 59001-1, , 1987-08, 2275-07, XENIA, CBCA ####[facility] ([id number])[address] [place], [place] [address]Yruipifdpr [Mass/Vol]0.69 mg/dL Normal0.40-1.00ProMercy Health St. Anne HospitalComment on above:Result Comment: METHOD TRACEABLE TO IDMS STANDARDPerformed By: #### 16015-6, , 1987-08, 2275-07, XENIA, CBCMindi ####[facility] ([id number])[address] [place], [place] [address]fAQR (CKD-EPI) NON-RACE DEPENDENT>90Normal>59[facility] Comment on above:Result Comment: Reported eGFR is based on the CKD-EPI 2020 equation that does not use a race coefficient.Performed By: #### 63363-7, , 1987-08, 2275-07, XENIA, ANNA ####[facility] ([id number])[address] [place], [place] [address]Ojhwrfj [Mass/Vol]134 mg/gLAjfj67-51VzgLhjfigMercy Health St. Anne HospitalComment on above:Performed By: #### 10751-2, , 1987-08, 2275-07, XENIA, CBCA ####[facility] ([id number])[address] [place], [place] [address]Sscsmufak [Moles/Vol]3.4 mmol/LLow3.5-5.0ProMercy Health St. Anne HospitalComment on above: Performed By: #### 73668-9, , 1987-08, 2275-07, CMP, CBCA ####[facility] ([id number])[address] [facility] [place] [address]Pmnkfvr [Mass/Vol]7.4 g/dLNormal6.0-8.0ProMercy Health St. Anne HospitalComment on above: Performed By: #### 76409-1, , 1987-08, 2275-07, CMP, CBCA ####[facility] ([id number])[address] [place], [place] [address]Ooaypp [Moles/Vol]146 mmol/YYnuefp077-105AhkXqfoil [facility] HospitalComment on above: Performed By: #### 51176-1, , 1987-08, 2275-07, CMP, CBCA ####[facility] ([id number])[address] [facility] [place], [place] [address]Iqkn nitrogen [Mass/Vol]20 mg/dLNormal5-23ProMercy Health St. [facility] HospitalComment on above:Performed By: #### 33925-3, , 1987-08, 2275-07, CMP, CBCA ####[facility] ([id number])[address] [facility] [place], [place] [address]IWM [Mass/Vol]on 04-23-2023 C REACTIVE PROTEIN3.4 mg/dLHigh0.000-0.744PDelaware County HospitalComment on above:Performed By: #### 03763-4, , 1987-08, 2275-07, CMP, CBCA ####[facility] ([id number])[address] [facility], [place] [address]QOVATTWUoz 03-29-7964Eslqepdn [Mass/Vol]41 ng/aACsspnn15-252OqbOaairt [facility] Comment on above:Performed By: #### 94925-1, 0, 1987-08, 2275-07, CMP, CBCA ####[facility] ([id number])[address] [place] [address] Fibrin D-dimer DDU (PPP) [Mass/Vol]on 3D CVZJH011 ng/mL DDUHigh<255 [facility] Orthopedic CenterComment on above:Result Comment: Results >=255ng/mL DDU: Results may be indicative of the presence of VTE. The use of the Wells score and further diagnostic tests should be considered. Elevated D-Dimer levels can also be associated with DIC, neoplasm, , trauma and liver disease. Elevated levels of rheumatoid factor may lead to an overestimation of the D-Dimer level.Performed By: #### 59724-5, , 1987-08, 2275-07, CMP, CBCA ####[facility] ([id number])[address] [place], [place] [address]Vcpwrpv Glucometer (BldC) [Mass/Vol]on 21-40-3066Aybufoc [Mass/Vol]129 mg/iDPpjr13-95NzdIreqbq [facility] HospitalGlucose [Mass/Vol]96 mg/dL Xlszai75-79LoxFodbqlMercy Health St. Anne HospitalGlucose [Mass/Vol]136 mg/xGDbko76-56 ProMFirelands Regional Medical CenterGlucose [Mass/Vol]127 mg/qDQplq37-15MhxNduuvs [facility] HospitalGlucose [Mass/Vol]115 mg/gQNxic86-12TimLsskheCrystal Clinic Orthopedic CenterLDH [Catalytic activity/Vol]on 00-37-2423LBS410 U/MXhesov320-887DvdHsquiuCrystal Clinic Orthopedic CenterComment on above:Performed By: #### 84994-9, , 1987-08, 2275-07, CMP, CBCA ####[facility] ([id number])[address] [place], [place] [address]VDXKQ RESPIRATORY CULTUREon 91-23-9942Qpwwbsqe identified Respiratory culture Nom (Sput)GRAM STAIN 10 [...] PIPERACIL/TAZOBACTAM S 16 F TOBRAMYCIN S <=[address] Anne HospitalComment on above: Performed By: #### XENIA, 71267-9, 17098-4, CBCA #### [facility] ([id number]) [address] [facility] [place], [place] [address]MFBBKJPSUqf 52-43-0548Jqguzpdvz [Moles/Vol]3.7 mmol/LNormal 3.5-5.0ProMercy Health St. Anne HospitalComment on above:Performed By: #### XENIA, 97652- 0, 56466-3, CBCA #### [facility] ([id number]) [address] [facility] [place], [place] [address]HC CHEST 1 VWon 56-47-4934GA CHEST 1 VWXR CHEST 1 VW Single [...] by Alli Bateman MD on 04/23/2023 6:11 AMNormalProLima City Hospital AND AUTO DIFFon 43-48-0337Zfgobphkzii (Bld) [#/Vol]0.1 10*3/uLNormal 0.0-0.4[facility] Orthopedic CenterComment on above:Performed By: #### 624-7 #### [facility] ([id number]) [address], [address] [place], [place] [address]Lszbmsvhsrq/100 WBC (Bld)1.0 %[facility] Comment on above:Performed By: #### 624-7 #### [facility] ([id number]) [address], [address] [place], [place] [address]Zqkuurshwug distribution width (RBC) [Ratio]20.5 %High11.5-15.0 [facility]ic[facility] HospitalComment on above:Performed By: #### 624-7 #### [facility] ([id number]) [address], [address] [place], [place] [address]Rszedqfqad (Bld) [Volume fraction]34.1 %Fpx61-08ZclQrcwewCrystal Clinic Orthopedic CenterComment on above:Performed By: #### 624-7 #### [facility] ([id number]) [address], [address] [place], [place] [address]Gscfvehcfd (Bld) [Mass/Vol]10.8 g/dLLow11.7-15.5PDelaware County HospitalComment on above:Performed By: #### 624-7 #### [facility] ([id number]) [address], [address] [place], [place] [address]RXZHJRLWVM, ATYPICAL2.0 %NormalCrystal Clinic Orthopedic CenterComment on above:Performed By: #### 624-7 #### [facility] ([id number]) [address], [address] [place], [place] [address]Kuyceeufzqg (Bld) [#/Vol]2.0 10*3/uLNormal1.0-3.5PDelaware County HospitalComment on above:Performed By: #### 624-7 #### [facility] ([id number]) [address], [address] [place], [place] [address]Fltcuoclgby/100 WBC (Bld)26.5 %NormalCrystal Clinic Orthopedic Center Comment on above:Performed By: #### 624-7 #### [facility] ([id number]) [address], [address] [place], [place] [address]FPG (RBC) [Entitic mass]26.9 djUkr09-62OfyZmsxepCrystal Clinic Orthopedic CenterComment on above:Performed By: #### 624-7 #### [facility] ([id number]) [address], [address] [place], [place] [address]TPUJ (RBC) [Mass/Vol]31.6 g/fCKjz07-79NhkOkapzkCrystal Clinic Orthopedic Center Comment on above:Performed By: #### 624-7 #### [facility] ([id number]) [address], [address] [place], [place] [address]FUW (RBC) [Entitic vol]85 rEAkzfjb89-098NakQddgjsCrystal Clinic Orthopedic CenterComment on above:Performed By: #### 624-7 #### [facility] ([id number]) [address], [address] [place], [place] [address]Ykfgljlcy (Bld) [#/Vol]0.9 10*3/uLNormal0-0.9[facility] Orthopedic CenterComment on above:Performed By: #### 624-7 #### [facility] ([id number]) [address], [address] [place], [place] [address]Bpgycyubc/100 WBC (Bld)12.7 %NormalCrystal Clinic Orthopedic Center Comment on above:Performed By: #### 624-7 #### [facility] ([id number]) [address], [address] [place], [place] [address]Txscuanvpsf (Bld) [#/Vol]4.2 10*3/uLNormal1.5-6.6[facility] Orthopedic CenterComment on above:Performed By: #### 624-7 #### [facility] ([id number]) [address], [address] [place], [place] [address]PCQLFXNJN RBC1.0 /100 WBCNormal0.0-1.0[facility] Comment on above:Performed By: #### 624-7 #### [facility] ([id number]) [address], [address] [place], [place] [address]Lavpyjcm mean volume (Bld) [Entitic vol]7.8 fLNormal7-12 ProMKettering Health – Soin Medical Center HospitalComment on above:Performed By: #### 624-7 #### [facility] ([id number]) [address], [address] [place], [place] [address]Qewiksaqp (Bld) [#/Vol]370 10*3/vHRxspai772-661MwkDikeqq [facility] HospitalComment on above:Performed By: #### 624-7 #### [facility] ([id number]) [address], [address] [place], [place] [address]ZZRZSHIFYXQUQ9+AbnormalNONEProMedica [facility] Portland Medical CenterComment on above:Performed By: #### 624-7 #### [facility] ([id number]) [address], [address] [place], [place] [address]IMP COUNT4.00 X10E12/LNormal3.80-5.20[facility] Comment on above:Performed By: #### 624-7 #### [facility] ([id number]) [address], [address] [place], [place] [address]PAU KGMCJFOTWP47.8 %NormalProWright-Patterson Medical Center HospitalComment on above:Performed By: #### 624-7 #### [facility] ([id number]) [address], [address] [place], [place] [address]WHC (Bld) [#/Vol]7.3 10*3/uLNormal4.0-11.0ProWright-Patterson Medical Center HospitalComment on above:Performed By: #### 624-7 #### [facility] ([id number]) [address], [address] [place], [place] [address]CVPRSGDTESXIO METABOLIC PANELon 19-91-1133Jetnauw [Mass/Vol]3.0 g/dLLow3.2-5.3PTuscarawas Hospital HospitalComment on above:Performed By: #### 624- 7 #### [facility] ([id number]) [address], [address] [place], [place] [address]XGG [Catalytic activity/Vol]68 U/JBeifto18-847BbeIkyjhh [facility] HospitalComment on above:Performed By: #### 624-7 #### [facility] ([id number]) [address], [address] [place], [place] [address]BZF [Catalytic activity/Vol]16 U/LNormal0-31PTuscarawas Hospital HospitalComment on above:Performed By: #### 624-7 #### [facility] ([id number]) [address], [address] [place], [place] [address]Ovyfq gap [Moles/Vol]11 mmol/LNormal5-15ProW[facility] HospitalComment on above:Performed By: #### 624-7 #### [facility] ([id number]) [address], [address] [place], [place] [address]GWS [Catalytic activity/Vol]18 U/LNormal0-41ProWright-Patterson [facility] Center HospitalComment on above:Performed By: #### 624-7 #### [facility] ([id number]) [address], [address] [place], [place] [address]Dgwabklju [Mass/Vol]0.5 mg/dLNormal0.3-1.2PTuscarawas Hospital HospitalComment on above:Performed By: #### 624-7 #### [facility] ([id number]) [address], [address] [place], [place] [address]Sbhsxwi [Mass/Vol]9.5 mg/dLNormal8.5-10.5PDelaware County HospitalComment on above:Performed By: #### 624-7 #### [facility] ([id number]) [address], [address] [place] [address]Urqlcisl [Moles/Vol]113 mmol/IGpjz85-015PlnRfwplqMercy Health St. Anne HospitalComment on above:Performed By: #### 624-7 #### [facility] ([id number]) [address], [address] [place], [place] [address]HC7 [Moles/Vol]22 mmol/PIlpgub30-33JwvQfezxzDelaware County Hospital Comment on above:Performed By: #### 624-7 #### [facility] ([id number]) [address] [address] [place], [place] [address]Gkybmajntn [Mass/Vol]0.85 mg/dLNormal0.40-1.00[facility] Orthopedic CenterComment on above:Result Comment: METHOD TRACEABLE TO IDMS STANDARD Performed By: #### 624-7 #### [facility] ([id number]) [address] [address] [place] [address]VMP/1.73 sq M.predicted among non-blacks MDRD (S/P/Bld) [Vol rate/Area]78 mL/min/{1.73_m2}Normal>59ProMercy Health St. Anne HospitalComment on above:Result Comment: Reported eGFR is based on the CKD-EPI 2021 equation that does not use a race coefficient.Performed By: #### 624-7 #### [facility] ([id number]) [address], [address] [place], [place] [address]Scmyhil [Mass/Vol]107 mg/rFFpej60-26UmpRlmxlqCrystal Clinic Orthopedic Center Comment on above:Performed By: #### 624-7 #### [facility] ([id number]) [address], [address] [place], [place] [address]Qbsbholqr [Moles/Vol]3.3 mmol/LLow3.5-5.0ProW[facility]Pat[facility] HospitalComment on above:Performed By: #### 624-7 #### [facility] ([id number]) [address], [address] [place], [place] [address]Tmdxawg [Mass/Vol]7.6 g/dLNormal6.0-8.0ProW[facility] HospitalComment on above:Performed By: #### 624-7 #### [facility] ([id number]) [address], [address] [place], [place] [address]Enascg [Moles/Vol]146 mmol/JYcmhyn495-673YauAtmefj [facility] HospitalComment on above:Performed By: #### 624-7 #### [facility] ([id number]) [address], [address] [place], [place] [address]Ddvn nitrogen [Mass/Vol]22 mg/dLNormal5-23ProW[facility] HospitalComment on above:Performed By: #### 624-7 #### [facility] ([id number]) [address], [address] [place], [place] [address]Adasrgf Glucometer (BldC) [Mass/Vol]on 40-16-7285Vdwcscj [Mass/Vol]149 mg/vFAhgv57-95FaqNddnof Baypark HospitalGlucose [Mass/Vol]126 mg/oTVkdq55-14QpmKexzyl [facility] HospitalGlucose [Mass/Vol]109 mg/kKUqtk20-05 ProMKettering Health – Soin Medical Center HospitalGlucose [Mass/Vol]103 mg/bUKyvk18-72NybBnrgleMercy Health St. Anne HospitalPOTASSIUMon 88-61-6808Xqlhelksi [Moles/Vol]3.8 mmol/LNormal3.5-5.0 [facility] HospitalComment on above:Performed By: #### 624-7 #### [facility] ([id number]) [address], [address] [place], [place] [address]Jiuqmejjc [Moles/Vol]3.3 mmol/LLow3.5-5.0[facility] Orthopedic CenterComment on above:Performed By: #### 624-7 #### [facility] ([id number]) [address], [address] [place], [place] [address]GIVBQLAAXSJWca 16-16-6885Ioquwxdkykkz [Mass/Vol]510 mg/dLHigh 27-150ProMercy Health St. Anne HospitalComment on above:Performed By: #### 624-7 #### [facility] ([id number]) [address], [address] [place], [place] [address]IS CHEST 1 VWon 81-52-0282XO CHEST 1 VWXR CHEST 1 VW Single [...] Victor Hugo Gustafson MD on 04/22/2023 6:[address] Anne HospitalCB AND AUTO DIFFon 59-09-1672ZVNVIFLM BASOPHIL0.0 X10E9/LNormal0.0-0.2 [facility] CenterComment on above:Performed By: #### 2571-8 ####[facility] ([id number])[address], [address], [place] [address]#### CMP, CBCA ####[facility] ([id number])[address] [place], [place] [address]ZSKOXALL NEUTROPHIL4.3 X10E9/LNormal1.5-6.6[facility] Comment on above:Performed By: #### 2571-8 ####[facility] ([id number])0 [facility], [address] [place] [address]#### CMP, CBCA ####[facility] ([id number])[address] [place], [place] [address]Qdwzieudy/100 WBC (Bld)0.4 %NormalProMercy Health St. Anne HospitalComment on above:Performed By: #### 2571-8 ####[facility] ([id number])0 [facility] [address] [place] [address]#### CMP, CBCA ####[facility] ([id number])[address] [place], [place] [address]Utorxcpcfdp (Bld) [#/Vol]0.1 10*3/uL Normal0.0-0.4ProMercy Health St. Anne HospitalComment on above:Performed By: #### 2571- 8 ####[facility] ([id number])0 [facility], [address] [place] [address]#### CMP, CBCA ####[facility] ([id number])[address] [place], [place] [address]Nmyakmmdxqo/100 WBC (Bld)1.2 %NormalProMercy Health St. Anne HospitalComment on above:Performed By: #### 2571-8 ####[facility] ([id number])0 [facility] [address] [place] [address]#### CMP, CBCA ####[facility] ([id number])[address] [place], [place] [address]Sipajygsast distribution width (RBC) [Ratio]20.6 %High11.5-15.0[facility] Comment on above:Performed By: #### 2571-8 ####[facility] ([id number])[address], [address], [place] [address]#### CMP, CBCA ####[facility] ([id number])[address] [place], [place] [address]Rnaxncuybq (Bld) [Volume fraction]31.6 %Lwb80-32YisSacqjt [facility] HospitalComment on above: Performed By: #### 2571-8 ####[facility] ([id number])[address] [facility] [address], [place] [address]#### CMP, CBCA ####[facility] ([id number])[address] [place], [place] [address]Udzruqefvh (Bld) [Mass/Vol] 10.1 g/dLLow11.7-15.5ProMedMercy Health Urbana HospitalComment on above:Performed By: #### 2571-8 ####[facility] ([id number])[address] [facility] [address], [place] [address]#### CMP, CBCA ####[facility] ([id number])[address] [place], [place] [address]Xtblcuujmsh (Bld) [#/Vol]1.3 10*3/uL Normal1.0-3.5PDelaware County HospitalComment on above:Performed By: #### 2571- 8 ####[facility] ([id number])[address], [address], [place] [address]#### CMP, CBCA ####[facility] ([id number])[address] [place], [place] [address]Aakmkfbbpib/100 WBC (Bld)21.1 %NormalProMercy Health St. Anne HospitalComment on above:Performed By: #### 2571-8 ####[facility] ([id number])[address] [facility] [address], [place] [address]#### CMP, CBCA ####[facility] ([id number])[address] [place], [place] [address]WNG (RBC) [Entitic mass]27.2 xoEumodg93-72TaoJiatow [facility] HospitalComment on above: Performed By: #### 2571-8 ####[facility] ([id number])[address], [address] [place] [address]#### CMP, CBCA ####[facility] ([id number])[address] [place], [place] [address]CWRG (RBC) [Mass/Vol]32.1 g/yVVqtmhj41-97VbiUszxss [facility] HospitalComment on above:Performed By: #### 2571-8 ####[facility] ([id number])0 [facility] [address] [place] [address]#### CMP, CBCA ####[facility] ([id number])[address] [place], [place] [address]XPS (RBC) [Entitic vol]85 fLNormal 80-100[facility] HospitalComment on above:Performed By: #### 2571-8 ####[facility] ([id number])0 [facility] [address] [place] [address]#### CMP, CBCA ####[facility] ([id number])[address] [place], [place] [address]Tbnyilkpv (Bld) [#/Vol]0.5 10*3/uLNormal0-0.9[facility] HospitalComment on above:Performed By: #### 2571-8 ####[facility] ([id number])[address] [address] [place] [address]#### CMP, CBCA ####[facility] ([id number])[address] [place] [address] Monocytes/100 WBC (Bld)8.3 %NormalProGlenbeigh Hospitalca [facility] HospitalComment on above: Performed By: #### 2571-8 ####[facility] ([id number])[address], [address] [place] [address]#### CMP, CBCA ####[facility] ([id number])[address] [facility] [place] [address]Fejlbwfrvzv/100 WBC (Bld) 69.0 %NormalProMercy Health St. Anne HospitalComment on above:Performed By: #### 2571-8 ####[facility] ([id number])[address] [place] [address]#### CMP, CBCA ####[facility] ([id number])[address] [facility] [place] [address]Vksuemwo mean volume (Bld) [Entitic vol]7.7 fLNormal7-12 [facility] CenterComment on above:Performed By: #### 2571-8 ####[facility] ([id number])[address] [place] [address]#### CMP, CBCA ####[facility] ([id number])[address] [facility], [place] [address]Pziaswpzf (Bld) [#/Vol]349 10*3/nFKmhvjt678-192QmtDsdbmcCrystal Clinic Orthopedic Center Comment on above:Performed By: #### 2571-8 ####[facility] ([id number])[address], [address], [place] [address]#### CMP, CBCA ####[facility] ([id number])[address] [facility] [address]FFS COUNT3.73 X10E12/LLow3.80-5.20ProMercy Health St. Anne HospitalComment on above:Performed By: #### 2571-8 ####[facility] ([id number])[address], [address], [place] [address]#### CMP, CBCA ####[facility] ([id number])[address] [place], [place] [address]DGH morphology finding Nom (Bld) REVIEWEDNormalProMedica Providence Portland Medical CenterComment on above:Performed By: #### 2571-8 ####[facility] ([id number])[address] [place] [address]#### CMP, CBCA ####[facility] ([id number])[address] [place], [place] [address]REF (Bld) [#/Vol]6.2 10*3/uLNormal 4.0-11.0[facility] CenterComment on above:Performed By: #### 2571-8 ####[facility] ([id number])0 [facility], [address] [place] [address]#### CMP, CBCA ####[facility] ([id number])[address] [place], [place] [address]REQBIGVKQIQIY METABOLIC PANELon 35-14-6966Qtnjlrk [Mass/Vol] 2.7 g/dLLow3.2-5.3[facility] CenterComment on above:Performed By: #### 2571-8 ####[facility] ([id number])[address], [address] [place] [address]#### CMP, CBCA ####[facility] ([id number])[address] [place], [place] [address]HNE [Catalytic activity/Vol]63 U/L Slyfri88-384JqwWpwndiMercy Health St. Anne HospitalComment on above:Performed By: #### 2571-8 ####[facility] ([id number])[address], [place] [address]#### CMP, CBCA ####[facility] ([id number])[address] [place], [place] [address]HKX [Catalytic activity/Vol]14 U/LNormal0-31ProMedOhio State Health System HospitalComment on above:Performed By: #### 2571-8 ####[facility] ([id number])[address] [place] [address]#### CMP, CBCA ####[facility] ([id number])[address] [facility] [place], [place] [address]Cugfk gap [Moles/Vol]7 mmol/LNormal5-15ProW[facility] HospitalComment on above: Performed By: #### 2571-8 ####[facility] ([id number])[address] [facility], [address] [place] [address]#### CMP, CBCA ####[facility] ([id number])[address] [facility] [place], [place] [address]MMY [Catalytic activity/Vol]16 U/LNormal0-41ProWright-Patterson Medical Center HospitalComment on above: Performed By: #### 2571-8 ####[facility] ([id number])[address] [facility], [address] [place] [address]#### CMP, CBCA ####[facility] ([id number])[address] [facility] [place], [place] [address]Witnfkzas [Mass/Vol]0.7 mg/dLNormal0.3-1.2ProMedOhio State Health System HospitalComment on above:Performed By: #### 2571-8 ####[facility] ([id number])[address] [place] [address]#### CMP, CBCA ####[facility] ([id number])[address] [facility] [place], [place] [address]Qyxqysi [Mass/Vol]8.2 mg/dLLow 8.5-10.5ProMedOhio State Health System HospitalComment on above:Performed By: #### 2571-8 ####[facility] ([id number])[address] [place] [address]#### CMP, CBCA ####[facility] ([id number])[address] [place], [place] [address]Xytchkgr [Moles/Vol]115 mmol/TPzri39-443EnqRcgvedMercy Health St. Anne HospitalComment on above:Performed By: #### 2571-8 ####[facility] ([id number])[address] [facility], [address], [place] [address]#### CMP, CBCA ####[facility] ([id number])[address] [place], [place] [address]ZY9 [Moles/Vol]23 mmol/HCxuylh39-73MazAedxdt [facility] CenterComment on above: Performed By: #### 2571-8 ####[facility] ([id number])[address] [place] [address] [place] [address]#### CMP, CBCA ####[facility] ([id number])[address] [place] [address]Anwhjrvfma [Mass/Vol]0.77 mg/dLNormal0.40-1.00ProMercy Health St. Anne HospitalComment on above:Result Comment: METHOD TRACEABLE TO IDMS STANDARDPerformed By: #### 2571-8 ####[facility] ([id number])[address] [place] [address], [address] [place] [address]#### CMP, CBCA ####[facility] ([id number])[address] [place] [address] GFR/1.73 sq M.predicted among non-blacks MDRD (S/P/Bld) [Vol rate/Area]88 mL/min/{1.73_m2}Normal>59ProMercy Health St. Anne HospitalComment on above:Result Comment: Reported eGFR is based on the CKD-EPI 2020 equation that does not use a race coefficient.Performed By: #### 2571-8 ####[facility] ([id number])[address] [place] [address], [address] [place] [address]#### CMP, CBCA ####[facility] ([id number])[address] [facility] [place] [address] Glucose [Mass/Vol]100 mg/mFAvmz08-82WnpTzhhjv [facility] HospitalComment on above: Performed By: #### 2571-8 ####[facility] ([id number])[address] [facility], [address], [place] [address]#### CMP, CBCA ####[facility] ([id number])[address] [place], [place] [address]Vavjshein [Moles/Vol]4.1 mmol/LNormal3.5-5.0ProWright-Patterson Medical Center HospitalComment on above:Performed By: #### 2571-8 ####[facility] ([id number])0 [facility], [address], [place] [address]#### CMP, CBCA ####[facility] ([id number])[address] [place], [place] [address]Digthlb [Mass/Vol]6.8 g/dLNormal 6.0-8.0ProMercy Health St. Anne HospitalComment on above:Performed By: #### 2571-8 ####[facility] ([id number])0 [facility], [address] [place] [address]#### CMP, CBCA ####[facility] ([id number])[address] [place], [place] [address]Hkiund [Moles/Vol]145 mmol/OTqspgi616-982XazMjauqr [facility] HospitalComment on above:Performed By: #### 2571-8 ####[facility] ([id number])[address] [facility], [address], [place] [address]#### CMP, CBCA ####[facility] ([id number])[address] [place], [place] [address]Csac nitrogen [Mass/Vol]21 mg/dLNormal5-23ProW[facility] HospitalComment on above: Performed By: #### 2571-8 ####[facility] ([id number])[address] [place] [address], [address] [place] [address]#### XENIA, CBCA ####[facility] ([id number])[address] [place] [address]Tbkbufz Glucometer (BldC) [Mass/Vol]on 36-75-4027Ubqrzex [Mass/Vol]170 mg/mSKdet27-95QjtGuspboMercy Health St. Anne HospitalGlucose [Mass/Vol]102 mg/jLXzug50-72DjsQiokmcMercy Health St[address] Anne HospitalGlucose [Mass/Vol]93 mg/bCRggnmr88-16VqsYipljyMercy Health St. Anne HospitalGlucose [Mass/Vol]115 mg/vPMdjr35-45YhsUuwzgrCrystal Clinic Orthopedic CenterTRIGLYCERIDEon 51-35-9869Dfglnwmksjqy [Mass/Vol]422 mg/yMVmlr35-744ZnsTnghauCrystal Clinic Orthopedic CenterComment on above: Performed By: #### 2571-8 ####[facility] ([id number])[address] [place] [address], [address] [place] [address]#### XENIA, CBCA ####[facility] ([id number])[address] [place] [address]NR CHEST 1 VWon 04-21-2023 XR CHEST 1 [...] Hugo Kim MD on 04/21/2023 5:51 AMNormalProMediTriHealth McCullough-Hyde Memorial HospitalCB AND AUTO DIFFon 16-44-1598ZUWROGNN BASOPHIL0.0 X10E9/LNormal0.0-0.2 ProMedicHolmes County Joel Pomerene Memorial HospitalComment on above:Performed By: #### CBCA, CMP ####[facility] ([id number])[address] [place], [place] [address]#### 2571-8 ####[facility] ([id number])[address] [address]NPDRSHAB NEUTROPHIL3.9 X10E9/LNormal1.5-6.6ProMercy Health St[facility] Comment on above:Performed By: #### CBCA, CMP ####[facility] ([id number])[address] [place], [place] [address]#### 2571-8 ####[facility] ([id number])[address] [place] [address]Oiwxwxoos/100 WBC (Bld)0.3 %NormalProMercy Health St. Anne HospitalComment on above:Performed By: #### CBCA, CMP ####[facility] ([id number])[address] [place], [place] [address]#### 2571-8 ####[facility] ([id number])[address] [place] [address]Akhmwzsvjvu (Bld) [#/Vol]0.1 10*3/uLNormal 0.0-0.4ProMercy Health St[address] Anne HospitalComment on above:Performed By: #### CBCA, CMP ####[facility] ([id number])[address] [place] [address]#### 2571-8 ####[facility] ([id number])[address] [place] [address]Gokrjmbjnco/100 WBC (Bld)1.1 %NormalProMercy Health St. Anne HospitalComment on above:Performed By: #### CBCA, CMP ####[facility] ([id number])[address] [place]#### 2571-8 ####[facility] ([id number])[address] [place] [address] Erythrocyte distribution width (RBC) [Ratio]21.9 %High11.5-15.0ProMercy Health St. Anne HospitalComment on above:Performed By: #### CBCA, CMP ####[facility] ([id number])[address] [facility] [id number]#### 2571-8 ####[facility] ([id number])[address], [place] [address] Hematocrit (Bld) [Volume fraction]31.9 %Abf95-10AviZvynmaMercy Health St. Anne Hospital Comment on above:Performed By: #### CBCA, CMP ####[facility] ([id number])[address] [facility] [id number]#### 2571-8 ####[facility] ([id number])[address], [address], [place] [address]Uvghujuwbk (Bld) [Mass/Vol]10.0 g/dLLow11.7-15.5PDelaware County HospitalComment on above: Performed By: #### CBCA, CMP ####[facility] ([id number])[address] [facility] [id number]#### 2571-8 ####[facility] ([id number])[address], [address], [place] [address]Tcsqjcidmer (Bld) [#/Vol] 1.2 10*3/uLNormal1.0-3.5PDelaware County HospitalComment on above:Performed By: #### CBCA, CMP ####[facility] ([id number])[address] [facility] [id number]#### 2571-8 ####[facility] ([id number])[address], [address], [place] [address]Zaqtckweopl/100 WBC (Bld)20.9 %Normal [facility] Medical CenterComment on above:Performed By: #### CBCA, CMP ####[facility] ([id number])[address] [place]#### 2571-8 ####[facility] ([id number])[address], [address], [place] [address]JOP (RBC) [Entitic mass]26.5 agWbd01-75EqvTsykqtMercy Health St. Anne HospitalComment on above:Performed By: #### CBCA, CMP ####[facility] ([id number])[address] [place] [address]#### 2571-8 ####[facility] ([id number])[address], [address] [place] [address]UIFN (RBC) [Mass/Vol]31.3 g/lCXjq75-10TmsWubcfvMercy Health St. Anne HospitalComment on above:Performed By: #### CBCA, CMP ####[facility] ([id number])[address] [place] [address]#### 2571-8 ####[facility] ([id number])[address] [address] [place] [address]OYK (RBC) [Entitic vol]85 qYRdiwek22-653 [facility] Medical CenterComment on above:Performed By: #### CBCA, CMP ####[facility] ([id number])[address] [place] [address]#### 2571-8 ####[facility] ([id number])[address] [address] [place] [address]Qtyffghat (Bld) [#/Vol]0.5 10*3/uLNormal0-0.9[facility] Comment on above:Performed By: #### CBCA, CMP ####[facility] ([id number])[address] [place] [address]#### 2571-8 ####[facility] ([id number])[address], [address] [place] [address]Jnmaetshg/100 WBC (Bld)8.8 %NormalProGlenbeigh Hospitalca [facility] HospitalComment on above:Performed By: #### CBCA, CMP ####[facility] ([id number])[address] [facility] [id number]#### 2571-8 ####[facility] ([id number])[address], [address], [place] [address]Yramtvmxpes/100 WBC (Bld)68.9 %Normal [facility] HospitalComment on above:Performed By: #### CBCA, CMP ####[facility] ([id number])[address] [place] [address], [id number]#### 2571-8 ####[facility] ([id number])[address], [address] [place] [address]Bweaznob mean volume (Bld) [Entitic vol]7.5 fLNormal7-12[facility] Medical CenterComment on above:Performed By: #### CBCA, CMP ####[facility] ([id number])[address] [facility], [id number]#### 2571-8 ####[facility] ([id number])[address], [address] [place] [address] Platelets (Bld) [#/Vol]347 10*3/iJVzfstv286-142TzyNiblrv Baypark HospitalComment on above:Performed By: #### CBCA, CMP ####[facility] ([id number])[address] [place] [address], [id number]#### 2571-8 ####[facility] ([id number])[address], [address] [place] [address]FKJ COUNT3.77 X10E12/LLow3.80-5.20ProMercy Health St. Anne HospitalComment on above:Performed By: #### CBCA, CMP ####[facility] ([id number])2801 [facility], [id number]#### 2571-8 ####[facility] ([id number])[address], [address], [place] [address]WWH morphology finding Nom (Bld)REVIEWED NormalProMercy Health St. Anne HospitalComment on above:Performed By: #### CBCA, CMP ####[facility] ([id number])2801 [facility] [id number]#### 2571-8 ####[facility] ([id number])[address], [address], [place] [address]PEL (Bld) [#/Vol]5.6 10*3/uLNormal4.0-11.0[facility] Clinic Orthopedic CenterComment on above:Performed By: #### CBCA, CMP ####[facility] ([id number])2801 [facility] [id number]#### 2571-8 ####[facility] ([id number])[address], [place] [address] COMPREHENSIVE METABOLIC PANELon 65-97-4780Qkxyaty [Mass/Vol]2.6 g/dLLow3.2-5.3 [facility] CenterComment on above:Performed By: #### CBCA, CMP ####[facility] ([id number])[address] [place], [place]#### 2571-8 ####[facility] ([id number])[address], [address], [place] [address]TMX [Catalytic activity/Vol]66 U/CSpdzgs50-017UyiRbkqccMercy Health St. Anne Hospital Comment on above:Performed By: #### CBCA, CMP ####[facility] ([id number])2801 [facility] [id number]#### 2571-8 ####[facility] ([id number])[address], [address], [place] [address]TKH [Catalytic activity/Vol]14 U/LNormal0-31ProMedOhio State Health System HospitalComment on above: Performed By: #### CBCA, CMP ####[facility] ([id number])2801 [facility], [id number]#### 2571-8 ####[facility] ([id number])[address], [address], [place] [address]Ljfdg gap [Moles/Vol]7 mmol/LNormal5-15ProW[facility] HospitalComment on above:Performed By: #### CBCA, CMP ####[facility] ([id number])[address] [facility] [place] [address]#### 2571-8 ####[facility] ([id number])[address], [address], [place] [address]ZIL [Catalytic activity/Vol]14 U/LNormal0-41ProW[facility]-Patterson [facility] Center HospitalComment on above:Performed By: #### CBCA, CMP ####[facility] ([id number])2801 [facility], [id number]#### 2571-8 ####[facility] ([id number])[address], [address], [place] [address]Msphdkxjc [Mass/Vol]0.5 mg/dLNormal0.3-1.2ProMedOhio State Health System HospitalComment on above:Performed By: #### CBCA, CMP ####[facility] ([id number])28[address] [facility], [id number]#### 2571-8 ####[facility] ([id number])[address], [place] [address]Mbjdaxf [Mass/Vol]8.4 mg/dLLow8.5-10.5ProMedOhio State Health System HospitalComment on above: Performed By: #### CBCA, CMP ####[facility] ([id number])2801 [facility], [id number]#### 2571-8 ####[facility] ([id number])[address], [address], [place] [address]Mgpwwnjk [Moles/Vol]115 mmol/QHmcm99-703JdcDbfigpMercy Health St. Anne HospitalComment on above:Performed By: #### MARTINA, CMP ####[facility] ([id number])[address] [place] [address]#### 2571-8 ####[facility] ([id number])[address] [facility], [address], [place] [address]WQ7 [Moles/Vol]23 mmol/EZovdxu23-40OpmGfdowl Baypark HospitalComment on above:Performed By: #### ANNA, CMP ####[facility] ([id number])[address] [place] [address] [id number]#### 2571-8 ####[facility] ([id number])[address] [facility], [address], [place] [address] Creatinine [Mass/Vol]0.75 mg/dLNormal0.40-1.00ProMercy Health St. Anne HospitalComment on above:Result Comment: METHOD TRACEABLE TO IDMS STANDARDPerformed By: #### ANNA, CMP ####[facility] ([id number])[address] [place] [address]#### 2571-8 ####[facility] ([id number])[address] [address] [place], [place] [address]kSAR (CKD-EPI) NON-RACE DEPENDENT>90Normal>59ProMercy Health St[address] Anne HospitalComment on above:Result Comment: Reported eGFR is based on the CKD-EPI 2020 equation that does not use a race coefficient.Performed By: #### CBCA, CMP ####[facility] ([id number])[address] [facility] [id number]#### 2571-8 ####[facility] ([id number])[address], [place] [address] Glucose [Mass/Vol]100 mg/cOUkyf63-68IslEslbajMercy Health St. Anne HospitalComment on above: Performed By: #### CBCA, CMP ####[facility] ([id number])[address] [facility], [id number]#### 2571-8 ####[facility] ([id number])[address], [address], [place] [address]Cwnwjwnrt [Moles/Vol]3.7 mmol/LNormal3.5-5.0ProMercy Health St. Anne HospitalComment on above:Performed By: #### CBCA, CMP ####[facility] ([id number])[address] [place] [address] [id number]#### 2571-8 ####[facility] ([id number])[address], [address], [place] [address]Cajpegp [Mass/Vol]7.0 g/dLNormal6.0-8.0ProMercy Health St. Anne HospitalComment on above:Performed By: #### CBCA, CMP ####[facility] ([id number])[address] [place] [address], [id number]#### 2571-8 ####[facility] ([id number])[address], [address], [place] [address]Ucpzxk [Moles/Vol]145 mmol/GGqvnpx233-783BwwIzkdeb [facility] HospitalComment on above:Performed By: #### CBCA, CMP ####[facility] ([id number])[address] [facility], [id number]#### 2571-8 ####[facility] ([id number])[address], [address], [place] [address]Ofjx nitrogen [Mass/Vol]16 mg/dLNormal5-23ProMercy Health St. Anne HospitalComment on above:Performed By: #### CBCA, CMP ####[facility] ([id number])[address] [place], [place]#### 2571-8 ####[facility] ([id number])[address] [facility], [address], [place] [address]Yzrmdrp Glucometer (BldC) [Mass/Vol]on 37-31-3917Mbrnmnx [Mass/Vol]135 mg/tZEims44-72WihXsgwfqMercy Health St. Anne HospitalGlucose [Mass/Vol]105 mg/rBQqnh18-38ClhIstgobMercy Health St. Anne HospitalGlucose [Mass/Vol]87 mg/dL Fpefpz97-63YyrGofadbMercy Health St. Anne HospitalGlucose [Mass/Vol]97 mg/bGMqeyjx81-04 [facility] Medical CenterPOTASSIUMon 78-04-9594Yjlqxeebm [Moles/Vol]3.8 mmol/L Normal3.5-5.0[facility] Orthopedic CenterComment on above:Performed By: #### 2823- 3 ####[facility] ([id number])[address] [place] [address] Potassium [Moles/Vol]4.1 mmol/LNormal3.5-5.0ProMercy Health St. Anne HospitalComment on above:Performed By: #### 2823-3 ####[facility] ([id number])[address] [place], [place] [address]KXDHMRZMOQQHdv 04-20-2023 Triglyceride [Mass/Vol]335 mg/dEYcsa39-986SvyZqevnxMercy Health St. Anne HospitalComment on above:Performed By: #### CBCA, CMP ####[facility] ([id number])[address] [place], [place] [id number]#### 2571-8 ####[facility] ([id number])[address] [facility], [address], [place] [address]YH CHEST 1 VWon 98-99-4703NI CHEST 1 VWXR CHEST 1 VW Clinical [...] by Tristen Neely MD on 04/20/2023 5:33 AMNormalCrystal Clinic Orthopedic CenterARTERIAL BLOOD GASon 81-43-3899KKHMI'S TESTPassNormalCrystal Clinic Orthopedic CenterComment on above:Performed By: #### ABG #### [facility] ([id number]) [address] [place], [place] [address]WLLN,DEFICIT1.0 MMOL/LNormal0.0-2.0[facility] Comment on above:Performed By: #### ABG #### [facility] ([id number]) [address] [place] [address]Doef ghhdaotiojt62.6 [degF]Qpipmo32.0[facility] Comment on above:Performed By: #### ABG #### [facility] ([id number]) [address] [place] [address]NSB5 (Bld) [Moles/Vol]24.2 mmol/FAwerhx86-73WmaNagshnMercy Health St. Anne HospitalComment on above:Performed By: #### ABG #### [facility] ([id number]) [address] [place] [address]IPVN. O2 CONC.40 %NormalProMercy Health St. Anne HospitalComment on above:Performed By: #### ABG #### [facility] ([id number]) [address] [place], [place] [address]Roeoto (Bld) [Partial pressure]69 mm[Hg]Olb41-270GtlNqiyicMercy Health St. Anne HospitalComment on above:Performed By: #### ABG #### [facility] ([id number]) [address] [place], [place] [address]Pkjdcn saturation in Blood93.0 %Normal>90ProMercy Health St. Anne HospitalComment on above:Performed By: #### ABG #### [facility] ([id number]) [address] [place], [place] [address]OGSOOC SOURCEVentNormalProMercy Health St. Anne HospitalComment on above:Performed By: #### ABG #### [facility] ([id number]) [address] [place], [place] [address]ZEV[address].9 JKWITuggst82-52DaxYhmdrb [facility] HospitalComment on above:Performed By: #### ABG #### [facility] ([id number]) [address] [place], [place] [address]dF (Bld)7.371 [pH]Normal7.350-7.450ProMercy Health St. [facility] Hospital Comment on above:Performed By: #### ABG #### [facility] ([id number]) [address] [place], [place] [address]BKYBXQ SITELRadNormalCrystal Clinic Orthopedic CenterComment on above: Performed By: #### ABG #### [facility] ([id number]) [address] [place], [place] [address]HKIWZK TYPEARTERIALNormalProMercy Health St. Anne HospitalComment on above:Performed By: #### ABG #### [facility] ([id number]) [address] [place], [place] [address]OZX AND AUTO DIFFon 64-33-0042BEWMNTCO BASOPHIL0.0 X10E9/LNormal 0.0-0.2[facility] Medical CenterComment on above:Performed By: #### ABG #### [facility] ([id number]) [address] [place], [place] [address]YRHRGDJX NEUTROPHIL3.7 X10E9/LNormal1.5-6.6ProMercy Health St. Anne HospitalComment on above:Performed By: #### ABG #### [facility] ([id number]) [address] [place], [place] [address]Egthmewue/100 WBC (Bld)0.3 %NormalCrystal Clinic Orthopedic Center Comment on above:Performed By: #### ABG #### [facility] ([id number]) [address] [place], [place] [address]Qvumpmifexb (Bld) [#/Vol]0.0 10*3/uLNormal0.0-0.4[facility] Orthopedic CenterComment on above:Performed By: #### ABG #### [facility] ([id number]) [address] [place], [place] [address]Dyorbslhvay/100 WBC (Bld)0.8 %[facility] Comment on above:Performed By: #### ABG #### [facility] ([id number]) [address] [place], [place] [address]Ijeyjwbcmxc distribution width (RBC) [Ratio]21.6 %High11.5-15.0 [facility]opedic CenterComment on above:Performed By: #### ABG #### [facility] ([id number]) [address] [place], [place] [address]Wpryblgtoo (Bld) [Volume fraction]30.5 %Ucb16-81BlvAyejtiMercy Health St. Anne HospitalComment on above:Performed By: #### ABG #### [facility] ([id number]) [address] [place], [place] [address]Qqrhghbkpi (Bld) [Mass/Vol]9.8 g/dLLow11.7-15.5PTuscarawas Hospital HospitalComment on above:Performed By: #### ABG #### [facility] ([id number]) [address] [place], [place] [address]Vyrxtnqthep (Bld) [#/Vol]1.5 10*3/uLNormal1.0-3.5PDelaware County HospitalComment on above:Performed By: #### ABG #### [facility] ([id number]) [address] [place], [place] [address]Nfvtryoqfyn/100 WBC (Bld)26.6 %NormalCrystal Clinic Orthopedic Center Comment on above:Performed By: #### ABG #### [facility] ([id number]) [address] [place] [place], [place] [address]XKF (RBC) [Entitic mass]27.0 hsGxuyvl72-37IgyItbhumMercy Health St. Anne HospitalComment on above:Performed By: #### ABG #### [facility] ([id number]) [address] [place] [place], [place] [address]LODA (RBC) [Mass/Vol]32.1 g/yVUuqfcf12-95OutYmgnyfMercy Health St. Anne HospitalComment on above:Performed By: #### ABG #### [facility] ([id number]) [address] [place] [place], [place] [address]QIH (RBC) [Entitic vol]84 xNXrrdjm70-561WanTjmgblCrystal Clinic Orthopedic CenterComment on above:Performed By: #### ABG #### [facility] ([id number]) [address] [facility] [place], [place] [address]Vcouqrwuz (Bld) [#/Vol]0.4 10*3/uLNormal0-0.9[facility] Orthopedic CenterComment on above:Performed By: #### ABG #### [facility] ([id number]) [facility] [place] [place], [place] [address]Fjlehlcmq/100 WBC (Bld)6.8 %[facility] Comment on above:Performed By: #### ABG #### [facility] ([id number]) [address] [place], [place] [address]Usapjeveowe/100 WBC (Bld)65.5 %[facility] Comment on above:Performed By: #### ABG #### [facility] ([id number]) [address] [place], [place] [address]Rvcsuefb mean volume (Bld) [Entitic vol]7.5 fLNormal7-12 [facility] HospitalComment on above:Performed By: #### ABG #### [facility] ([id number]) [address] [place], [place] [address]Fvplevngu (Bld) [#/Vol]328 10*3/iUAasvkf909-326OhvLpmazg [facility] HospitalComment on above:Performed By: #### ABG #### [facility] ([id number]) [address] [place], [place] [address]XPL COUNT3.62 X10E12/LLow3.80-5.20[facility] Comment on above:Performed By: #### ABG #### [facility] ([id number]) [address] [place], [place] [address]CGY morphology finding Nom (d)REVIEWEDNormalCrystal Clinic Orthopedic CenterComment on above:Performed By: #### ABG #### [facility] ([id number]) [address] [place], [place] [address]NUR (d) [#/Vol]5.6 10*3/uLNormal4.0-11.0ProMercy Health St. Anne HospitalComment on above:Performed By: #### ABG #### [facility] ([id number]) [address] [place], [place] [address]VACIUHKNPNYAB METABOLIC PANELon 50-68-0131Bvidjti [Mass/Vol]2.4 g/dLLow3.2-5.3PDelaware County HospitalComment on above:Performed By: #### ABG #### [facility] ([id number]) [address] [place], [place] [address]OTY [Catalytic activity/Vol]62 U/NCwwdda26-762DmuPdfgrnCrystal Clinic Orthopedic CenterComment on above:Performed By: #### ABG #### [facility] ([id number]) [address] [place], [place] [address]EBU [Catalytic activity/Vol]16 U/LNormal0-31ProMedMercy Health Urbana HospitalComment on above:Performed By: #### ABG #### [facility] ([id number]) [address] [place], [place] [address]Qbbrn gap [Moles/Vol]6 mmol/LNormal5-15ProMercy Health St. Anne HospitalComment on above:Performed By: #### ABG #### [facility] ([id number]) [address] [place], [place] [address]QYP [Catalytic activity/Vol]18 U/LNormal0-41ProMercy Health St. Anne HospitalComment on above:Performed By: #### ABG #### [facility] ([id number]) [address] [place], [place] [address]Khlllnkgy [Mass/Vol]0.5 mg/dLNormal0.3-1.2PDelaware County HospitalComment on above:Performed By: #### ABG #### [facility] ([id number]) [address] [facility] [address] [place], [place] [address]Bxjygma [Mass/Vol]8.2 mg/dLLow8.5-10.5PDelaware County Hospital Comment on above:Performed By: #### ABG #### [facility] ([id number]) [address] [place], [place] [address]Ajdlqjym [Moles/Vol]115 mmol/HSjzf16-242ZfaMqsimwMercy Health St. Anne HospitalComment on above:Performed By: #### ABG #### [facility] ([id number]) [address] [place], [place] [address]VR9 [Moles/Vol]25 mmol/FAtzuhb25-87IacVopymtDelaware County Hospital Comment on above:Performed By: #### ABG #### [facility] ([id number]) [address] [place], [place] [address]Sqpbhdmfkl [Mass/Vol]0.97 mg/dLNormal0.40-1.00ProMercy Health St. Anne HospitalComment on above:Result Comment: METHOD TRACEABLE TO IDMS STANDARD Performed By: #### ABG #### [facility] ([id number]) [address] [place], [place] [address]PFH/1.73 sq M.predicted among non-blacks MDRD (S/P/Bld) [Vol rate/Area]67 mL/min/{1.73_m2}Normal>59ProMercy Health St. Anne HospitalComment on above:Result Comment: Reported eGFR is based on the CKD-EPI 2020 equation that does not use a race coefficient.Performed By: #### ABG #### [facility] ([id number]) [address] [place], [place] [address]Uecsego [Mass/Vol]98 mg/oWFnwigp12-24HyqVexmvyCrystal Clinic Orthopedic Center Comment on above:Performed By: #### ABG #### [facility] ([id number]) [address] [place], [place] [address]Gxbgsxrqn [Moles/Vol]3.3 mmol/LLow3.5-5.0[facility]opedic CenterComment on above:Performed By: #### ABG #### [facility] ([id number]) [address] [place], [place] [address]Fuaxyyj [Mass/Vol]6.5 g/dLNormal6.0-8.0ProMercy Health St. Anne HospitalComment on above:Performed By: #### ABG #### [facility] ([id number]) [address] [place], [place] [address]Vyytyc [Moles/Vol]146 mmol/NBluwuz190-417SuaYoxayf [facility] HospitalComment on above:Performed By: #### ABG #### [facility] ([id number]) [address] [place], [place] [address]Svyp nitrogen [Mass/Vol]14 mg/dLNormal5-23ProMercy Health St[address] Anne HospitalComment on above:Performed By: #### ABG #### [facility] ([id number]) [address] [place], [place] [address]NOJ [Mass/Vol]on 3C REACTIVE PROTEIN6.1 mg/dLHigh 0.000-0.744PDelaware County HospitalComment on above:Performed By: #### ABG #### [facility] ([id number]) [address] [place], [place] [address]Eapegvo Glucometer (BldC) [Mass/Vol]on 50-88-3471Bjwenoo [Mass/Vol]176 mg/cZQtfb58-16IiiLkdjlqMercy Health St. Anne HospitalGlucose [Mass/Vol]92 mg/dL Txkhqb89-21PglIxwnkdMercy Health St. Anne HospitalGlucose [Mass/Vol]94 mg/nEMahlcn34-13 [facility] Medical CenterGlucose [Mass/Vol]93 mg/wKSnicvm14-72EeqCpbuaqMercy Health St. Anne HospitalLactate (P yong) [Moles/Vol]on 20-22-3662Weicgtl [Moles/Vol]0.9 mmol/L Normal0.4-2.0ProMercy Health St. Anne HospitalComment on above:Performed By: #### ABG #### [facility] ([id number]) [address] [facility] [place], [place] [address]Pcyzvenfiji peptide B [Mass/Vol]on 05-66-8776Etvlobiaisx peptide B (Bld) [Mass/Vol]25 pg/mLNormal<100.0ProMercy Health St[address] Anne HospitalComment on above:Performed By: #### ABG #### [facility] ([id number]) [address] [facility] [place], [place] [address]JWSGLONEHmh 28-82-4990Skbceeyos [Moles/Vol]3.6 mmol/LNormal 3.5-5.0ProMercy Health St[address] Anne HospitalComment on above:Performed By: #### ABG #### [facility] ([id number]) [address] [facility] [place], [place] [address]QF CHEST 1 VWon 49-74-3653DV CHEST 1 VWXR CHEST 1 VW CLINICAL [...] on 04/19/2023 5:38 AM I, Victor Hugo Kmi MD have personally reviewed the image(s) and agree with and/or edited the report Finalized by Victor Hugo Kim MD on 04/19/2023 5:[address] Anne HospitalARTERIAL BLOOD GASon 62-95-9583JIGFO'S TESTNormalProMercy Health St. Anne HospitalComment on above:Performed By: #### CMP, 40072-4, , CBCA #### [facility] ([id number]) [address] [place], [place] [address]XCDO,DEFICIT1.0 MMOL/LNormal0.0-2.0[facility] Comment on above:Performed By: #### CMP, 47625-3, , CBCA #### [facility] ([id number]) [address] [place], [place] [address]Xiim tblcuwcsqpi63.6 [degF]Krxrdc36.0[facility] Comment on above:Performed By: #### XENIA, 56977-1, , CBCA #### [facility] ([id number]) [address] [place], [place] [address]XZP3 (Bld) [Moles/Vol]24.3 mmol/ERwzulv59-81CjxCtmudsMercy Health St. Anne HospitalComment on above:Performed By: #### CMP, 59664-2, , CBCA #### [facility] ([id number]) [address] [place], [place] [address]ZORI. O2 CONC.50 %NormalProMercy Health St. Anne HospitalComment on above:Performed By: #### CMP, 26462-5, , CBCA #### [facility] ([id number]) [address] [place], [place] [address]Wixunj (Bld) [Partial pressure]71 mm[Hg]Wct92-401VkyIzfmazMercy Health St. Anne HospitalComment on above:Performed By: #### CMP, 67517-6, , CBCA #### [facility] ([id number]) [address] [place], [place] [address]Aqxacu saturation in Blood94.0 %Normal>90ProMercy Health St. Anne HospitalComment on above:Performed By: #### CMP, 53341-6, , CBCA #### [facility] ([id number]) [address] [place], [place] [address]ZMZKIP SOURCEVentNormalProMedica Providence Portland Medical CenterComment on above:Performed By: #### XENIA, 40276-4, , CBCA #### [facility] ([id number]) [address] [place], [place] [address]UFZ362.7 HNBNSxllnr55-21IyvPdizmu [facility] Medical CenterComment on above:Performed By: #### XENIA, 78759-1, 82745-8, CBCA #### [facility] ([id number]) [address] [place], [place] [address]yI (Bld)7.373 [pH]Normal7.350-7.450ProMercy Health St[facility] Comment on above:Performed By: #### XENIA, 22520-7, , CBCA #### [facility] ([id number]) [address] [place], [place] [address]FETRXZ SITELRadNormalProMercy Health St. Anne HospitalComment on above: Performed By: #### XENIA, 70149-8, , CBCA #### [facility] ([id number]) [address] [place], [place] [address]XKKJTD TYPEARTERIALNormalProMercy Health St. Anne HospitalComment on above:Performed By: #### XENIA, 05266-1, , CBCA #### [facility] ([id number]) [address] [place], [place] [address]QVY AND AUTO DIFFon 12-52-2454PORIHWUJ BASOPHIL0.0 X10E9/LNormal 0.0-0.2[facility] HospitalComment on above:Performed By: #### XENIA, 97584- 0, , CBCA #### [facility] ([id number]) [address] [place], [place] [address]MXILFADC NEUTROPHIL2.5 X10E9/LNormal1.5-6.6[facility] HospitalComment on above:Performed By: #### XENIA, 40565-0, , CBCA #### [facility] ([id number]) [address] [facility] [place], [place] [address]Yrbntdvmqoyr Ql (Bld)2+AbnormalNONEProMedica [facility] Comment on above:Performed By: #### CMP, 95363-0, , CBCA #### [facility] ([id number]) [address] [place], [place] [address]Fseedyavz/100 WBC (Bld)0.2 %NormalCrystal Clinic Orthopedic Center Comment on above:Performed By: #### CMP, 26846-2, , CBCA #### [facility] ([id number]) [address] [place], [place] [address]Jdzbxlpyqub (Bld) [#/Vol]0.0 10*3/uLNormal0.0-0.4[facility] CenterComment on above:Performed By: #### XENIA, 60478-9, , CBCA #### [facility] ([id number]) [address] [place] [place], [place] [address]Ytcqkbyjcrz/100 WBC (Bld)0.1 %NormalCrystal Clinic Orthopedic Center Comment on above:Performed By: #### XENIA, 68535-0, , CBCA #### [facility] ([id number]) [address] [place] [place], [place] [address]Xnxnlmpcdat distribution width (RBC) [Ratio]22.1 %High11.5-15.0 ProMFirelands Regional Medical CenterComment on above:Performed By: #### CMP, 05616-9, , CBCA #### [facility] ([id number]) [address] [place], [place] [address]Mjojwmauob (Bld) [Volume fraction]31.1 %Hnl13-94SlnTmnzdyCrystal Clinic Orthopedic CenterComment on above:Performed By: #### CMP, 59956-9, , CBCA #### [facility] ([id number]) [address] [place], [place] [address]Wofpchwdrg (Bld) [Mass/Vol]9.9 g/dLLow11.7-15.5PDelaware County HospitalComment on above:Performed By: #### XENIA, 69122-0, , CBCA #### [facility] ([id number]) [address] [place], [place] [address]Czvhmpuxrdn (Bld) [#/Vol]1.2 10*3/uLNormal1.0-3.5PDelaware County HospitalComment on above:Performed By: #### CMP, 54781-5, , CBCA #### [facility] ([id number]) [address] [place], [place] [address]Exkipidmlob/100 WBC (Bld)30.6 %NormalCrystal Clinic Orthopedic Center Comment on above:Performed By: #### XENIA, 13140-8, , CBCA #### [facility] ([id number]) [address] [place], [place] [address]DBQ (RBC) [Entitic mass]27.0 zvQuaekn45-29AmqToswmsCrystal Clinic Orthopedic CenterComment on above:Performed By: #### XENIA, 20676-1, , CBCA #### [facility] ([id number]) [address] [place], [place] [address]QBDD (RBC) [Mass/Vol]31.8 g/jZCci11-10YpnBqnyhqCrystal Clinic Orthopedic Center Comment on above:Performed By: #### XENIA, 25745-4, , CBCA #### [facility] ([id number]) [address] [place], [place] [address]ILE (RBC) [Entitic vol]85 oGLrewdx81-383CyqBbjojiCrystal Clinic Orthopedic CenterComment on above:Performed By: #### CMP, 91014-3, 60531-7, CBCA #### [facility] ([id number]) [address] [place], [place] [address]Dtqilugfz (Bld) [#/Vol]0.3 10*3/uLNormal0-0.9ProMercy Health St. Anne HospitalComment on above:Performed By: #### CMP, 89178-7, , CBCA #### [facility] ([id number]) [address] [place], [place] [address]Iiuicupha/100 WBC (Bld)7.4 %NormalCrystal Clinic Orthopedic Center Comment on above:Performed By: #### CMP, 37200-6, 62732-8, CBCA #### [facility] ([id number]) [address] [facility] [place], [place] [address]Zvdkcfhfwdr/100 WBC (Bld)61.7 %NormalCrystal Clinic Orthopedic Center Comment on above:Performed By: #### CMP, 71918-9, , CBCA #### [facility] ([id number]) [address] [facility] [place], [place] [address]Datqiexk mean volume (Bld) [Entitic vol]7.5 fLNormal7-12 ProMedicHolmes County Joel Pomerene Memorial HospitalComment on above:Performed By: #### CMP, 67726-0, , CBCA #### [facility] ([id number]) [address] [facility] [place], [place] [address]Pzcdfagpk (Bld) [#/Vol]317 10*3/aFGjtxgb507-255EunBmtzrd Baypark HospitalComment on above:Performed By: #### CMP, 57031-5, , CBCA #### [facility] ([id number]) [address] [place], [place] [address]WAP COUNT3.65 X10E12/LLow3.80-5.20[facility] Comment on above:Performed By: #### CMP, 47960-1, 88403-9, CBCA #### [facility] ([id number]) [address] [place], [place] [address]YSJ (Bld) [#/Vol]4.0 10*3/uLNormal4.0-11.0ProMercy Health St. Anne HospitalComment on above:Performed By: #### CMP, 26689-2, 78073-3, CBCA #### [facility] ([id number]) [address] [place], [place] [address]VCGHIDSOLBWOT METABOLIC PANELon 48-65-5585Bgnzthi [Mass/Vol]2.4 g/dLLow3.2-5.3ProMedOhio State Health System HospitalComment on above:Performed By: #### CMP, 02306-3, 19624-0, CBCA #### [facility] ([id number]) [address] [place], [place] [address]MFS [Catalytic activity/Vol]64 U/BBdhlgs13-067QfnRkbgik Baypark HospitalComment on above:Performed By: #### XENIA, 54101-4, , CBCA #### [facility] ([id number]) [address] [place], [place] [address]RSN [Catalytic activity/Vol]18 U/LNormal0-31ProMedOhio State Health System HospitalComment on above:Performed By: #### XENIA, 48994-1, , CBCA #### [facility] ([id number]) [address] [place], [place] [address]Rdfrs gap [Moles/Vol]7 mmol/LNormal5-15ProWright-Patterson Medical Center HospitalComment on above:Performed By: #### CMP, 24674-5, 66472-4, CBCA #### [facility] ([id number]) [address] [place], [place] [address]BVO [Catalytic activity/Vol]20 U/LNormal0-41ProWright-Patterson Medical Center HospitalComment on above:Performed By: #### CMP, 96122-5, 74600-2, CBCA #### [facility] ([id number]) [address] [place], [place] [address]Sukzehqlk [Mass/Vol]0.4 mg/dLNormal0.3-1.2PTuscarawas Hospital HospitalComment on above:Performed By: #### CMP, 99068-5, 02009-0, CBCA #### [facility] ([id number]) [address] [place], [place] [address]Cbkrqpw [Mass/Vol]7.0 mg/dLLow8.5-10.5PDelaware County Hospital Comment on above:Performed By: #### XENIA, 95051-9, , CBCA #### [facility] ([id number]) [address] [place], [place] [address]Jmaqvymm [Moles/Vol]114 mmol/DDcnc01-040IshJmrlojCrystal Clinic Orthopedic CenterComment on above:Performed By: #### XENIA, 36447-5, , CBCA #### [facility] ([id number]) [address] [place], [place] [address]DK8 [Moles/Vol]25 mmol/WDvhgif19-32QrjEnzlycDelaware County Hospital Comment on above:Performed By: #### XENIA, 21522-8, , CBCA #### [facility] ([id number]) [address] [place], [place] [address]Dlacjiwdni [Mass/Vol]0.83 mg/dLNormal0.40-1.00C[facility] Clinic Orthopedic CenterComment on above:Result Comment: METHOD TRACEABLE TO IDMS STANDARD Performed By: #### XENIA, 57116-0, , CBCA #### [facility] ([id number]) [address] [place], [place] [address]ZYI/1.73 sq M.predicted among non-blacks MDRD (S/P/Bld) [Vol rate/Area]81 mL/min/{1.73_m2}Normal>59ProMercy Health St. Anne HospitalComment on above:Result Comment: Reported eGFR is based on the CKD-EPI 2020 equation that does not use a race coefficient.Performed By: #### XENIA, 30156-8, , CBCA #### [facility] ([id number]) [address] [place], [place] [address]Dymsdtn [Mass/Vol]100 mg/sGBqiv71-72XgvGcpovmCrystal Clinic Orthopedic Center Comment on above:Performed By: #### XENIA, 96560-7, , CBCA #### [facility] ([id number]) [address] [place], [place] [address]Ebhkbrwbv [Moles/Vol]4.7 mmol/LNormal3.5-5.0ProMercy Health St. Anne HospitalComment on above:Performed By: #### XENIA, 18908-8, , CBCA #### [facility] ([id number]) [address] [place], [place] [address]Skubkgg [Mass/Vol]6.4 g/dLNormal6.0-8.0ProMercy Health St. Anne HospitalComment on above:Performed By: #### XENIA, 10833-8, , CBCA #### [facility] ([id number]) [address] [place], [place] [address]Dtcdkl [Moles/Vol]146 mmol/JNgutnj614-994ZexMxyzki [facility] HospitalComment on above:Performed By: #### XENIA, 49039-6, , CBCA #### [facility] ([id number]) [address] [place], [place] [address]Wotm nitrogen [Mass/Vol]12 mg/dLNormal5-23ProMercy Health St[address] Anne HospitalComment on above:Performed By: #### XENIA, 31898-6, , CBCA #### [facility] ([id number]) [address] [place], [place] [address]Bhwnwlm.ionized (Bld) [Moles/Vol]on 09-00-2089KXTCFOOV ICA4.8 mg/dLNormal4.5-5.3ProMedica Providence Portland Medical CenterComment on above:Performed By: #### XENIA, 99454-7, , CBCA #### [facility] ([id number]) [address] [place], [place] [address]Wxfspwf Glucometer (BldC) [Mass/Vol]on 09-61-8017Jekngcs [Mass/Vol]126 mg/cLIrwh35-63IgiGhptbkMercy Health St. Anne HospitalGlucose [Mass/Vol]94 mg/dL Vqprdw24-61EsfQfqrvdMercy Health St. Anne HospitalGlucose [Mass/Vol]104 mg/tNQiqi18-56 Pro[facility] Medical CenterXR CHEST 1 VWon 00-12-3920NN CHEST 1 VWXR CHEST 1 VW Single view chest History: Difficulty breathing, shortness of breath. Covid positive. Comparison: 04/17/2023 Findings: Similar loop configuration left IJ catheter. Similar ET tube. Partially imaged enteric tube. Mediansternotomy. Stable enlarged cardiac silhouette. Bandlike opacity right lower lobe, likely atelectatic. Small effusions. No measurable pneumothorax. Right costophrenic angle excluded from izyga-xl-zhuu. Impression: 1. Persistent effusions, with or without underlying pneumonia. 2. Looped configuration left IJ catheter and correlate with function. Finalized by Victor Hugo Gustafson MD on 04/18/2023 5:44 AMNormalCrystal Clinic Orthopedic CenterARTERIAL BLOOD GASon 23-56-4323NYIOP'S TESTPassNormalCrystal Clinic Orthopedic CenterComment on above:Performed By: #### XENIA, 37538-3, , CBCA #### [facility] ([id number]) [address] [place], [place] [address]UYPO,DEFICIT1.0 MMOL/LNormal0.0-2.0[facility] Comment on above:Performed By: #### XENIA, 96752-2, 44244-8, CBCA #### [facility] ([id number]) [address] [place] [address]Ayvj flfasvmnkww48.6 [degF]Qfgeqk58.0[facility] Comment on above:Performed By: #### XENIA, 34766-9, 67359-9, CBCA #### [facility] ([id number]) [address] [place], [place] [address]KNQ8 (Bld) [Moles/Vol]24.3 mmol/WNzjaui28-87XsjTomqiuCrystal Clinic Orthopedic CenterComment on above:Performed By: #### XENIA, 04779-0, 02803-2, CBCA #### [facility] ([id number]) [address] [place], [place] [address]MNTL. O2 CONC.50 %NormalProMercy Health St. Anne HospitalComment on above:Performed By: #### CMP, 32059-6, 94010-4, CBCA #### [facility] ([id number]) [address] [place], [place] [address]Hwzlcc (Bld) [Partial pressure]73 mm[Hg]Wal80-193MgnAocuvoMercy Health St. Anne HospitalComment on above:Performed By: #### CMP, 75534-1, 23529-9, CBCA #### [facility] ([id number]) [address] [place], [place] [address]Dlmbld saturation in Blood94.0 %Normal>90ProMercy Health St. Anne HospitalComment on above:Performed By: #### CMP, 40577-1, 40752-7, CBCA #### [facility] ([id number]) [address] [place], [place] [address]EMBDGH SOURCEVentNormalCrystal Clinic Orthopedic CenterComment on above:Performed By: #### CMP, 74631-5, 87403-7, CBCA #### [facility] ([id number]) [address] [place], [place] [address]UQF129.9 LZDYAmsvaa15-61CccDbknlz [facility] HospitalComment on above:Performed By: #### CMP, 66654-8, 76613-5, CBCA #### [facility] ([id number]) [address] [place], [place] [address]qR (Bld)7.342 [pH]Low7.350-7.450ProMercy Health St. Anne Hospital Comment on above:Performed By: #### CMP, 76759-1, 83635-6, CBCA #### [facility] ([id number]) [address] [place], [place] [address]JEKRQB SITERRadNormalCrystal Clinic Orthopedic CenterComment on above: Performed By: #### CMP, 68468-0, 76933-2, CBCA #### [facility] ([id number]) [address] [place], [place] [address]EEKYFJ TYPEARTERIALNormalProMercy Health St. Anne HospitalComment on above:Performed By: #### XENIA, 41788-5, 61687-1, CBCA #### [facility] ([id number]) [address] [place], [place] [address]VKIWA METABOLIC PANLon 98-89-4678Zpgcd gap [Moles/Vol]8 mmol/L Normal5-15C[facility] Orthopedic CenterComment on above:Performed By: #### XENIA, 94928-2, , CBCA #### [facility] ([id number]) [address] [place], [place] [address]Xvzbwle [Mass/Vol]8.3 mg/dLLow8.5-10.5PDelaware County Hospital Comment on above:Performed By: #### XENIA, 81098-6, 82579-2, CBCA #### [facility] ([id number]) [address] [place], [place] [address]Qsmyrudh [Moles/Vol]114 mmol/RVact56-196CteSvndmzCrystal Clinic Orthopedic CenterComment on above:Performed By: #### XENIA, 97258-0, , CBCA #### [facility] ([id number]) [address] [place], [place] [address]FQ9 [Moles/Vol]23 mmol/SYgedti19-74EgvIqtoslDelaware County Hospital Comment on above:Performed By: #### XENIA, 65422-8, , CBCA #### [facility] ([id number]) [address] [place], [place] [address]Crpbowkgyj [Mass/Vol]0.96 mg/dLNormal0.40-1.00C[facility] Clinic Orthopedic CenterComment on above:Result Comment: METHOD TRACEABLE TO IDMS STANDARD Performed By: #### XENIA, 53224-5, , CBCA #### [facility] ([id number]) [address] [place], [place] [address]BRU/1.73 sq M.predicted among non-blacks MDRD (S/P/Bld) [Vol rate/Area]68 mL/min/{1.73_m2}Normal>59ProMercy Health St. Anne HospitalComment on above:Result Comment: Reported eGFR is based on the CKD-EPI 2020 equation that does not use a race coefficient.Performed By: #### XENIA, 23331-0, , CBCA #### [facility] ([id number]) [address] [place], [place] [address]Yobhbsq [Mass/Vol]164 mg/hYGqub83-43RvcJihqfkMercy Health St. Anne Hospital Comment on above:Performed By: #### XENIA, 42175-6, , CBCA #### [facility] ([id number]) [address] [place], [place] [address]Hfnultnmt [Moles/Vol]4.3 mmol/LNormal3.5-5.0ProMercy Health St. Anne HospitalComment on above:Performed By: #### XENIA, 99207-3, , CBCA #### [facility] ([id number]) [address] [place], [place] [address]Eafuse [Moles/Vol]145 mmol/ZSlqizn711-445FmqUmnxab [facility] HospitalComment on above:Performed By: #### XENIA, 62673-6, , CBCA #### [facility] ([id number]) [address] [place], [place] [address]Urhi nitrogen [Mass/Vol]11 mg/dLNormal5-23ProMercy Health St[address] Anne HospitalComment on above:Performed By: #### XENIA, 81839-5, , CBCA #### [facility] ([id number]) [address] [place], [place] [address]SFQ AND AUTO DIFFon 73-59-7150ACQBQYIA BASOPHIL0.0 X10E9/LNormal 0.0-0.2ProMedMercy Health Urbana HospitalComment on above:Performed By: #### XENIA, 50454- 0, , CBCA #### [facility] ([id number]) [address] [place], [place] [address]MDXOYXGH NEUTROPHIL2.3 X10E9/LNormal1.5-6.6C[facility] Clinic Orthopedic CenterComment on above:Performed By: #### XENIA, 47351-2, , CBCA #### [facility] ([id number]) [address] [place], [place] [address]Rpjdjgrtzkcc Ql (Bld)2+AbnormalNONEProMedica [facility] Comment on above:Performed By: #### XENIA, 47749-5, , CBCA #### [facility] ([id number]) [address] [place] [place], [place] [address]Fmrhzrfav/100 WBC (Bld)0.3 %NormalCrystal Clinic Orthopedic Center Comment on above:Performed By: #### XENIA, 45393-9, , CBCA #### [facility] ([id number]) [address] [place], [place] [address]Lpygpszxghi (Bld) [#/Vol]0.0 10*3/uLNormal0.0-0.4ProMercy Health St. Anne HospitalComment on above:Performed By: #### XENIA, 07958-3, , CBCA #### [facility] ([id number]) [address] [place], [place] [address]Isgmdrluquf/100 WBC (Bld)0.2 %NormalCrystal Clinic Orthopedic Center Comment on above:Performed By: #### XENIA, 31500-6, , CBCA #### [facility] ([id number]) [address] [place], [place] [address]Jslgdwotckg distribution width (RBC) [Ratio]22.2 %High11.5-15.0 ProMedicHolmes County Joel Pomerene Memorial HospitalComment on above:Performed By: #### XENIA, 17990-2, , CBCA #### [facility] ([id number]) [address] [place], [place] [address]Korwguocaw (Bld) [Volume fraction]30.6 %Boa38-13AjpSfhzuiMercy Health St. Anne HospitalComment on above:Performed By: #### CMP, 78685-2, , CBCA #### [facility] ([id number]) [address] [place], [place] [address]Afqpbmspkh (Bld) [Mass/Vol]9.9 g/dLLow11.7-15.5PDelaware County HospitalComment on above:Performed By: #### CMP, 09945-3, , CBCA #### [facility] ([id number]) [address] [place], [place] [address]Qhekntkayfe (Bld) [#/Vol]1.0 10*3/uLNormal1.0-3.5PDelaware County HospitalComment on above:Performed By: #### CMP, 56816-2, , CBCA #### [facility] ([id number]) [address] [place], [place] [address]Azwhkqqcqhf/100 WBC (Bld)29.2 %NormalProMercy Health St. Anne Hospital Comment on above:Performed By: #### CMP, 85632-3, , CBCA #### [facility] ([id number]) [address] [place], [place] [address]PCU (RBC) [Entitic mass]27.8 xmJogvab67-40ZmvOhhcvcMercy Health St. Anne HospitalComment on above:Performed By: #### CMP, 55114-2, , CBCA #### [facility] ([id number]) [address] [place], [place] [address]NXVP (RBC) [Mass/Vol]32.5 g/nIGxgjrr93-68KkdJqcxcwMercy Health St. Anne HospitalComment on above:Performed By: #### CMP, 04002-8, , CBCA #### [facility] ([id number]) [address] [place], [place] [address]ZUV (RBC) [Entitic vol]86 sWPqtyqc66-250KzsFhhpsg [facility] HospitalComment on above:Performed By: #### CMP, 67242-4, , CBCA #### [facility] ([id number]) [address] [place], [place] [address]Mnvxqaopd (Bld) [#/Vol]0.2 10*3/uLNormal0-0.9C[facility] Orthopedic CenterComment on above:Performed By: #### CMP, 37699-2, 27100-1, CBCA #### [facility] ([id number]) [address] [place], [place] [address]Dgyeqipez/100 WBC (Bld)5.8 %NormalCrystal Clinic Orthopedic Center Comment on above:Performed By: #### CMP, 13237-9, 59510-4, CBCA #### [facility] ([id number]) [address] [place], [place] [address]Wjiifpklbas/100 WBC (Bld)64.5 %NormalCrystal Clinic Orthopedic Center Comment on above:Performed By: #### CMP, 16681-4, 01920-5, CBCA #### [facility] ([id number]) [address] [place], [place] [address]Dhhxocgl mean volume (Bld) [Entitic vol]7.7 fLNormal7-12 [facility] Orthopedic CenterComment on above:Performed By: #### CMP, 35860-5, , CBCA #### [facility] ([id number]) [address] [place], [place] [address]Oqgyqwjam (Bld) [#/Vol]295 10*3/lXJuknms793-287ZeiAekgyh [facility] HospitalComment on above:Performed By: #### CMP, 99586-4, 79886-3, CBCA #### [facility] ([id number]) [address] [place], [place] [address]RYR COUNT3.57 X10E12/LLow3.80-5.20[facility] Comment on above:Performed By: #### CMP, 55719-1, 95106-1, CBCA #### [facility] ([id number]) [address] [place], [place] [address]RUZ (Bld) [#/Vol]3.6 10*3/uLLow4.0-11.0ProMercy Health St. Anne HospitalComment on above:Performed By: #### XENIA, 29788-4, , CBCA #### [facility] ([id number]) [address] [place], [place] [address]DOQXHTGC BASOPHIL0.0 X10E9/LNormal0.0-0.2PDelaware County HospitalComment on above:Performed By: #### CMP, 72179-4, , CBCA #### [facility] ([id number]) [address] [place], [place] [address]QPUTWSTG NEUTROPHIL2.1 X10E9/LNormal1.5-6.6ProMercy Health St. Anne HospitalComment on above:Performed By: #### XENIA, 24494-1, , CBCA #### [facility] ([id number]) [address] [place], [place] [address]Hutdrxxgcrkc Ql (Bld)2+AbnormalNONEPDelaware County Hospital Comment on above:Performed By: #### XENIA, 70238-9, , CBCA #### [facility] ([id number]) [address] [place], [place] [address]Wpsykyztz/100 WBC (Bld)0.3 %NormalCrystal Clinic Orthopedic Center Comment on above:Performed By: #### XENIA, 06840-8, , CBCA #### [facility] ([id number]) [address] [place], [place] [address]Ditddbggpeq (Bld) [#/Vol]0.0 10*3/uLNormal0.0-0.4ProMercy Health St. Anne HospitalComment on above:Performed By: #### CMP, 87733-9, , CBCA #### [facility] ([id number]) [address] [place], [place] [address]Unttwulrpqo/100 WBC (Bld)0.1 %NormalCrystal Clinic Orthopedic Center Comment on above:Performed By: #### CMP, 72072-4, , CBCA #### [facility] ([id number]) [address] [place], [place] [address]Yjxsubpzwjn distribution width (RBC) [Ratio]22.0 %High11.5-15.0 ProMedicHolmes County Joel [facility]omerene Memorial HospitalComment on above:Performed By: #### CMP, 23598-0, 49951-3, CBCA #### [facility] ([id number]) [address] [place], [place] [address]Kofvptcyig (Bld) [Volume fraction]31.4 %Zhs39-83RnhVjsoyaMercy Health St. Anne HospitalComment on above:Performed By: #### CMP, 51977-6, , CBCA #### [facility] ([id number]) [address] [place], [place] [address]Vbhmuhnixh (Bld) [Mass/Vol]10.2 g/dLLow11.7-15.5PDelaware County HospitalComment on above:Performed By: #### [facility], 05555-0, , CBCA #### [facility] ([id number]) [address] [place], [place] [address]Oqdhdmomscu (Bld) [#/Vol]0.9 10*3/uLLow1.0-3.5PDelaware County HospitalComment on above:Performed By: #### CMP, 52272-5, , CBCA #### [facility] ([id number]) [address] [place], [place] [address]Moehndkhjwm/100 WBC (Bld)28.7 %NormalCrystal Clinic Orthopedic Center Comment on above:Performed By: #### CMP, 43270-3, , CBCA #### [facility] ([id number]) [address] [place], [place] [address]FEC (RBC) [Entitic mass]27.4 wpSpucfz47-07GfiHdstyeMercy Health St. Anne HospitalComment on above:Performed By: #### CMP, 58120-0, 64937-6, CBCA #### [facility] ([id number]) [address] [place], [place] [address]GMLB (RBC) [Mass/Vol]32.4 g/qACmzxzm95-64BhfKxappaMercy Health St. Anne HospitalComment on above:Performed By: #### CMP, 18712-6, 79574-1, CBCA #### [facility] ([id number]) [address] [place], [place] [address]ONW (RBC) [Entitic vol]84 xCMiwawy74-825BmtVudjlw [facility] HospitalComment on above:Performed By: #### CMP, 37469-0, , CBCA #### [facility] ([id number]) [address] [place], [place] [address]Tojqkngzo (Bld) [#/Vol]0.2 10*3/uLNormal0-0.9C[facility] Clinic Orthopedic CenterComment on above:Performed By: #### CMP, 01418-7, , CBCA #### [facility] ([id number]) [address] [place], [place] [address]Kldrtffxa/100 WBC (Bld)6.9 %[facility] Comment on above:Performed By: #### CMP, 39935-4, 34377-0, CBCA #### [facility] ([id number]) [address] [place], [place] [address]Qevijhjcrep/100 WBC (Bld)64.0 %[facility] Comment on above:Performed By: #### CMP, 46331-7, 39144-1, CBCA #### [facility] ([id number]) [address] [place], [place] [address]Fegmsiqz mean volume (Bld) [Entitic vol]7.8 fLNormal7-12 ProMedicHolmes County [facility] Memorial HospitalComment on above:Performed By: #### CMP, 32376-8, 36158-2, CBCA #### [facility] ([id number]) [address] [place], [place] [address]Bliwgoqev (Bld) [#/Vol]301 10*3/bYKulhpb095-504AtaImcbgx [facility] HospitalComment on above:Performed By: #### XENIA, 77803-7, 17430-0, CBCA #### [facility] ([id number]) [address] [place], [place] [address]IWC COUNT3.72 X10E12/LLow3.80-5.20ProMercy Health St[facility] Comment on above:Performed By: #### XENIA, 39313-9, 22124-6, CBCA #### [facility] ([id number]) [address] [place], [place] [address]OCN (Bld) [#/Vol]3.3 10*3/uLLow4.0-11.0ProMercy Health St. Anne HospitalComment on above:Performed By: #### XENIA, 41785-2, , CBCA #### [facility] ([id number]) [address] [place], [place] [address]JGZLHZTYOMAVP METABOLIC PANELon 85-11-9915Jualzng [Mass/Vol]2.5 g/dLLow3.2-5.3PDelaware County HospitalComment on above:Performed By: #### XENIA, 98935-1, , CBCA #### [facility] ([id number]) [address] [place], [place] [address]YPO [Catalytic activity/Vol]68 U/ECrstqr13-132ZhzUqyyitMercy Health St. Anne HospitalComment on above:Performed By: #### XENIA, 45081-0, 17936-0, CBCA #### [facility] ([id number]) [address] [place], [place] [address] [Catalytic activity/Vol]21 U/LNormal0-31PDelaware County HospitalComment on above:Performed By: #### XENIA, 61797-3, 25188-2, CBCA #### [facility] ([id number]) [address] [place], [place] [address]Kibjv gap [Moles/Vol]5 mmol/LNormal5-15[facility] Orthopedic CenterComment on above:Performed By: #### XENIA, 82726-0, , CBCA #### [facility] ([id number]) [address] [place], [place] [address]QNX [Catalytic activity/Vol]26 U/LNormal0-41ProMercy Health St. Anne HospitalComment on above:Performed By: #### XENIA, 86709-6, , CBCA #### [facility] ([id number]) [address] [place], [place] [address]Epslpvexy [Mass/Vol]0.5 mg/dLNormal0.3-1.2PDelaware County HospitalComment on above:Performed By: #### XENIA, 52380-6, , CBCA #### [facility] ([id number]) [address] [place], [place] [address]Ecynvdm [Mass/Vol]8.2 mg/dLLow8.5-10.5PDelaware County Hospital Comment on above:Performed By: #### XENIA, 73756-4, , CBCA #### [facility] ([id number]) [address] [place], [place] [address]Yyhvrxhp [Moles/Vol]116 mmol/LOdzy33-191FzjAeapwxMercy Health St. Anne HospitalComment on above:Performed By: #### XENIA, 44560-6, , CBCA #### [facility] ([id number]) [address] [place], [place] [address]JO9 [Moles/Vol]25 mmol/TUwxfxz09-27NkwVlcfudDelaware County Hospital Comment on above:Performed By: #### XENIA, 89599-8, , CBCA #### [facility] ([id number]) [address] [place], [place] [address]Qqktrlrano [Mass/Vol]0.92 mg/dLNormal0.40-1.00ProMercy Health St. Anne HospitalComment on above:Result Comment: METHOD TRACEABLE TO IDMS STANDARD Performed By: #### XENIA, 13867-3, , CBCA #### [facility] ([id number]) [address] [place], [place] [address]RPM/1.73 sq M.predicted among non-blacks MDRD (S/P/Bld) [Vol rate/Area]71 mL/min/{1.73_m2}Normal>59ProMercy Health St. Anne HospitalComment on above:Result Comment: Reported eGFR is based on the CKD-EPI 2020 equation that does not use a race coefficient.Performed By: #### XENIA, 77578-5, , CBCA #### [facility] ([id number]) [address] [place], [place] [address]Euhpncn [Mass/Vol]109 mg/rDHjnj40-40HhtPwazkqCrystal Clinic Orthopedic Center Comment on above:Performed By: #### XENIA, 34053-6, , CBCA #### [facility] ([id number]) [address] [place], [place] [address]Zxicotyjf [Moles/Vol]3.6 mmol/LNormal3.5-5.0[facility] Orthopedic CenterComment on above:Performed By: #### XENIA, 04528-4, , CBCA #### [facility] ([id number]) [address] [place], [place] [address]Gcvmqfb [Mass/Vol]6.6 g/dLNormal6.0-8.0[facility] Orthopedic CenterComment on above:Performed By: #### XENIA, 55800-4, , CBCA #### [facility] ([id number]) [address] [place], [place] [address]Qldixo [Moles/Vol]146 mmol/PHcdfaz732-499UncIrqsou Baypark HospitalComment on above:Performed By: #### XENIA, 11078-8, , CBCA #### [facility] ([id number]) [address] [place], [place] [address]Szyg nitrogen [Mass/Vol]10 mg/dLNormal5-23ProMercy Health St. Anne HospitalComment on above:Performed By: #### XENIA, 04079-9, , CBCA #### [facility] ([id number]) [address] [place], [place] [address]Mkrcnjn.ionized (Bld) [Moles/Vol]on 90-76-3101UKBPEIVC ICA4.8 mg/dLNormal4.5-5.3ProMedica Providence Portland Medical CenterComment on above:Performed By: #### XENIA, 01977-1, , CBCA #### [facility] ([id number]) [address] [place], [place] [address]Dwzvekj Glucometer (BldC) [Mass/Vol]on 30-94-7020Vqhhtuv [Mass/Vol]111 mg/mLEank92-88UalGrvjiiMercy Health St. Anne HospitalGlucose [Mass/Vol]105 mg/wSWwrx63-24RxfRkhbpoMercy Health St. Anne HospitalMAGNESIUMon 00-58-9522Bjzpgbwwr [Mass/Vol]2.4 mg/dLNormal1.8-2.6ProMercy Health St. Anne HospitalComment on above: Performed By: #### XENIA, 31465-8, , CBCA #### [facility] ([id number]) [address] [place], [place] [address]Upmozppcu [Mass/Vol]2.5 mg/dLNormal1.8-2.6ProMercy Health St[address] Anne HospitalComment on above:Performed By: #### XENIA, 87465-2, , CBCA #### [facility] REHABILITATION ([id number]) [address] [place], [place] [address]SBPJEIVWGDyt 33-96-8061Jkxiirjkl [Mass/Vol]2.5 mg/dLNormal 2.4-4.9ProMercy Health St. Anne HospitalComment on above:Performed By: #### XENIA, 10444- 0, , CBCA #### [facility] ([id number]) [address] [place], [place] [address]XPTDJFNJEvk 05-74-1173Uruygvshc [Moles/Vol]3.9 mmol/LNormal 3.5-5.0C[facility] Clinic Orthopedic CenterComment on above:Performed By: #### XENIA, 23417- 0, 24122-0, CBCA #### [facility] ([id number]) [address] [place], [place] [address]JI CHEST 1 VWon 98-63-1693GL CHEST 1 VWXR CHEST 1 VW CHEST 1 VIEW HISTORY: Acute respiratory failure COMPARISON: 04/16/2023 FINDINGS: Stable lines and tubes. Mild pulmonary vascular congestion/edema. Bibasilar opacities may representatelectasis or pneumonia, improved. No pleural effusions or pneumothorax. IMPRESSION: * Improved bibasilar opacities. No other significant change. Finalized by Dharmesh Graves MD on 04/17/2023 5:44 AMNormalCrystal Clinic Orthopedic CenterARTERIAL BLOOD GASon 88-10-5570NBELN'S TESTPassNormalCrystal Clinic Orthopedic CenterComment on above:Performed By: #### XENIA, 21075-9, 51932-2, CBCA #### [facility] ([id number]) [address] [place], [place] [address]GLCS,DEFICIT3.0 MMOL/LHigh0.0-2.0[facility] Comment on above:Performed By: #### XENIA, 68979-2, 53332-3, CBCA #### [facility] ([id number]) [address] [place], [place] [address]Afhb bbyntkebjix26.6 [degF]Ghmkjs14.0[facility] Comment on above:Performed By: #### XENIA, 29937-7, 14115-8, CBCA #### [facility] ([id number]) [address] [place], [place] [address]GAC8 (Bld) [Moles/Vol]22.9 mmol/GSkugka51-50LtgGcijusMercy Health St. Anne HospitalComment on above:Performed By: #### XENIA, 98670-4, 41855-4, CBCA #### [facility] ([id number]) [address] [place], [place] [address]ZXSH. O2 CONC.60 %NormalProMercy Health St. Anne HospitalComment on above:Performed By: #### CMP, 77135-4, 69101-0, CBCA #### [facility] ([id number]) [address] [place], [place] [address]Prkivi (Bld) [Partial pressure]76 mm[Hg]Uhs51-954AlxMmorcm [facility]park HospitalComment on above:Performed By: #### CMP, 49675-4, 22521-0, CBCA #### [facility] ([id number]) [address] [place], [place] [address]Ktvlfg saturation in Blood94.0 %Normal>90ProMercy Health St. Anne HospitalComment on above:Performed By: #### CMP, 53403-6, 73531-5, CBCA #### [facility] ([id number]) [address] [place], [place] [address]ZYOEYK SOURCEVentNormalProMercy Health St. Anne HospitalComment on above:Performed By: #### CMP, 40393-7, 59414-1, CBCA #### [facility] ([id number]) [address] [place], [place] [address]DLF629.7 DPDFUpsfdu03-31VxdGgcwjb [facility] HospitalComment on above:Performed By: #### CMP, 99779-9, 84939-8, CBCA #### [facility] ([id number]) [address] [place], [place] [address]mL (Bld)7.336 [pH]Low7.350-7.450ProMercy Health St. Anne Hospital Comment on above:Performed By: #### CMP, 99376-2, 13191-2, CBCA #### [facility] ([id number]) [address] [place], [place] [address]FJXYXZ SITELRadNormalProMercy Health St. Anne HospitalComment on above: Performed By: #### CMP, 02313-0, 87660-6, CBCA #### [facility] ([id number]) [address] [place], [place] [address]LROQPL TYPEARTERIALNormalProMercy Health St. Anne HospitalComment on above:Performed By: #### XENIA, 24287-1, , CBCA #### [facility] ([id number]) [address] [place], [place] [address]TDS AND AUTO DIFFon 40-23-2611GRCIBMZX BASOPHIL0.0 X10E9/LNormal 0.0-0.2PDelaware County HospitalComment on above:Performed By: #### XENIA, 65605 0, , CBCA #### [facility] ([id number]) [address] [place], [place] [address]CHJEJUKA NEUTROPHIL3.2 X10E9/LNormal1.5-6.6C[facility] Clinic Orthopedic CenterComment on above:Performed By: #### XENIA, 88745-1, , CBCA #### [facility] ([id number]) [address] [place], [place] [address]Oglbmslxvddx Ql (Bld)2+AbnormalNONEPDelaware County Hospital Comment on above:Performed By: #### XENIA, 79289-7, , CBCA #### [facility] ([id number]) [address] [place], [place] [address]Ytikgggyq/100 WBC (Bld)0.2 %NormalCrystal Clinic Orthopedic Center Comment on above:Performed By: #### XENIA, 68081-0, , CBCA #### [facility] ([id number]) [address] [place], [place] [address]Bqxmbsuzcfl (Bld) [#/Vol]0.0 10*3/uLNormal0.0-0.4C[facility] Clinic Orthopedic CenterComment on above:Performed By: #### XENIA, 07492-2, , CBCA #### [facility] ([id number]) [address] [place], [place] [address]Tdgzxeyksin/100 WBC (Bld)0.0 %[facility] Comment on above:Performed By: #### CMP, 44838-6, , CBCA #### [facility] ([id number]) [address] [facility] [place], [place] [address]Iyqomwkjeio distribution width (RBC) [Ratio]22.0 %High11.5-15.0 ProMFirelands Regional Medical CenterComment on above:Performed By: #### CMP, 88196-3, , CBCA #### [facility] ([id number]) [address] [facility] [place], [place] [address]Jjcjfwdkdv (Bld) [Volume fraction]27.6 %Pvc18-10GuhNounkjMercy Health St. Anne HospitalComment on above:Performed By: #### XENIA, 48367-4, , CBCA #### [facility] ([id number]) [address] [facility] [place], [place] [address]Ukynygksxd (Bld) [Mass/Vol]8.8 g/dLLow11.7-15.5PDelaware County HospitalComment on above:Performed By: #### CMP, 99445-9, , CBCA #### [facility] ([id number]) [address] [facility] [place], [place] [address]Wpflxeljvsf (Bld) [#/Vol]0.7 10*3/uLLow1.0-3.5PDelaware County HospitalComment on above:Performed By: #### CMP, 19462-2, , CBCA #### [facility] ([id number]) [address] [facility] [place], [place] [address]Eeapnkialaa/100 WBC (Bld)17.8 %NormalCrystal Clinic Orthopedic Center Comment on above:Performed By: #### CMP, 27941-7, , CBCA #### [facility] ([id number]) [address] [facility] [place], [place] [address]MDL (RBC) [Entitic mass]27.3 cvDavdiz80-13ZasHtouweMercy Health St. Anne HospitalComment on above:Performed By: #### CMP, 73313-7, 65650-7, CBCA #### [facility] ([id number]) [address] [place], [place] [address]EWZI (RBC) [Mass/Vol]31.9 g/dYEbr62-23DuuHjmyffCrystal Clinic Orthopedic Center Comment on above:Performed By: #### CMP, 31131-9, 06875-0, CBCA #### [facility] ([id number]) [address] [place], [place] [address]SKF (RBC) [Entitic vol]86 fPBoenrp53-334YrkIjbjhr [facility] HospitalComment on above:Performed By: #### CMP, 33319-1, 22849-6, CBCA #### [facility] ([id number]) [address] [place], [place] [address]Hwywzyycc (Bld) [#/Vol]0.2 10*3/uLNormal0-0.9C[facility] Orthopedic CenterComment on above:Performed By: #### CMP, 90637-8, , CBCA #### [facility] ([id number]) [address] [place], [place] [address]Rhmqzucab/100 WBC (Bld)4.7 %[facility] Comment on above:Performed By: #### CMP, 90017-8, 97564-7, CBCA #### [facility] ([id number]) [address] [place], [place] [address]Rtlqhpkyatu/100 WBC (Bld)77.3 %[facility] Comment on above:Performed By: #### CMP, 75323-2, 37002-9, CBCA #### [facility] ([id number]) [address] [place], [place] [address]Iadzfsnx mean volume (Bld) [Entitic vol]7.6 fLNormal7-12 ProMFirelands Regional Medical CenterComment on above:Performed By: #### CMP, 01311-5, 89195-1, CBCA #### [facility] ([id number]) [address] [place], [place] [address]Lgnaalqpx (Bld) [#/Vol]248 10*3/eQLbknno903-612DfqRuegwa [facility] HospitalComment on above:Performed By: #### XENIA, 38814-8, , CBCA #### [facility] ([id number]) [address] [place], [place] [address]HDP COUNT3.22 X10E12/LLow3.80-5.20ProMercy Health St. Anne Hospital Comment on above:Performed By: #### XENIA, 93399-1, 58639-0, CBCA #### [facility] ([id number]) [address] [place], [place] [address]HLN (Bld) [#/Vol]4.2 10*3/uLNormal4.0-11.0ProMercy Health St. Anne HospitalComment on above:Performed By: #### XENIA, 35833-8, , CBCA #### [facility] ([id number]) [address] [place], [place] [address]UOXSBKJTICUQJ METABOLIC PANELon 46-49-3165Ngguqnz [Mass/Vol]2.4 g/dLLow3.2-5.3PDelaware County HospitalComment on above:Performed By: #### XENIA, 04557-5, , CBCA #### [facility] ([id number]) [address] [place], [place] [address]JZW [Catalytic activity/Vol]61 U/YIwtpek60-772BfjVxgydmMercy Health St. Anne HospitalComment on above:Performed By: #### XENIA, 04339-4, 02587-1, CBCA #### [facility] ([id number]) [address] [place], [place] [address]LGR [Catalytic activity/Vol]20 U/LNormal0-31PDelaware County HospitalComment on above:Performed By: #### XENIA, 79284-1, 02331-2, CBCA #### [facility] ([id number]) [address] [place], [place] [address]Aryvr gap [Moles/Vol]6 mmol/LNormal5-15ProMercy Health St. Anne HospitalComment on above:Performed By: #### XENIA, 56416-6, , CBCA #### [facility] ([id number]) [address] [facility] [place], [place] [address]WDB [Catalytic activity/Vol]25 U/LNormal0-41C[facility] Clinic Orthopedic CenterComment on above:Performed By: #### XENIA, 98023-3, , CBCA #### [facility] ([id number]) [address] [facility] [place], [place] [address]Ghwtlemsq [Mass/Vol]0.6 mg/dLNormal0.3-1.2PDelaware County HospitalComment on above:Performed By: #### XENIA, 23448-1, , CBCA #### [facility] ([id number]) [address] [place], [place] [address]Vsmclau [Mass/Vol]8.2 mg/dLLow8.5-10.5PDelaware County Hospital Comment on above:Performed By: #### XENIA, 02597-7, , CBCA #### [facility] ([id number]) [address] [place], [place] [address]Zmipagfr [Moles/Vol]115 mmol/PSdpq61-603TdgHsqbqpMercy Health St. Anne HospitalComment on above:Performed By: #### XENIA, 03713-5, , CBCA #### [facility] ([id number]) [address] [place], [place] [address]HW7 [Moles/Vol]24 mmol/EBrylbv02-53KsnGpogszDelaware County Hospital Comment on above:Performed By: #### XENIA, 39870-6, , CBCA #### [facility] ([id number]) [address] [place], [place] [address]Nhpefflvcr [Mass/Vol]1.19 mg/dLHigh0.40-1.00ProMercy Health St. Anne HospitalComment on above:Result Comment: METHOD TRACEABLE TO IDMS STANDARD Performed By: #### XENIA, 97884-9, , CBCA #### [facility] ([id number]) [address] [place], [place] [address]XST/1.73 sq M.predicted among non-blacks MDRD (S/P/Bld) [Vol rate/Area]52 mL/min/{1.73_m2}Low>59ProMercy Health St. Anne HospitalComment on above: Result Comment: Reported eGFR is based on the CKD-EPI 2020 equation that does not use a race coefficient.Performed By: #### XENIA, 92317-3, , CBCA #### [facility] ([id number]) [address] [place], [place] [address]Spyfblf [Mass/Vol]95 mg/bXTvjrst64-17BdpVntrthCrystal Clinic Orthopedic Center Comment on above:Performed By: #### XENIA, 91629-3, , CBCA #### [facility] ([id number]) [address] [place], [place] [address]Rmyoatwir [Moles/Vol]3.7 mmol/LNormal3.5-5.0ProMercy Health St. Anne HospitalComment on above:Performed By: #### XENIA, 94824-7, , CBCA #### [facility] ([id number]) [address] [place], [place] [address]Nswqlgi [Mass/Vol]6.0 g/dLNormal6.0-8.0ProMercy Health St. Anne HospitalComment on above:Performed By: #### XENIA, 96470-0, , CBCA #### [facility] ([id number]) [address] [place], [place] [address]Twezfd [Moles/Vol]145 mmol/TFzokkh265-151WnnRbqdgq [facility] HospitalComment on above:Performed By: #### XENIA, 01363-0, , CBCA #### [facility] ([id number]) [address] [place], [place] [address]Hsxd nitrogen [Mass/Vol]8 mg/dLNormal5-23ProMercy Health St. Anne HospitalComment on above:Performed By: #### XENIA, 41905-2, , CBCA #### [facility] ([id number]) [address] [place], [place] [address]Klganjf Glucometer (BldC) [Mass/Vol]on 17-67-4220Sjvwfil [Mass/Vol]137 mg/kLCuhn16-28AylGajndrMercy Health St. Anne HospitalGlucose [Mass/Vol]88 mg/dL Kltvsi12-18HhfUdafyg [facility]park HospitalGlucose [Mass/Vol]102 mg/iVSlrs71-38 [facility] Medical CenterMAGNESIUMon 81-87-9093Jcxhzqidi [Mass/Vol]2.4 mg/dL Normal1.8-2.6ProMercy Health St. Anne HospitalComment on above:Performed By: #### XENIA, 13500-5, , CBCA #### [facility] ([id number]) [address] [place], [place] [address]Thjiknlfo [Mass/Vol]1.9 mg/dLNormal1.8-2.6ProMercy Health St. Anne HospitalComment on above:Performed By: #### XENIA, 99881-0, , CBCA #### [facility] ([id number]) [address] [place], [place] [address]XAOAKRRUKrj 68-26-2440Cyxomdvnp [Moles/Vol]4.1 mmol/LNormal 3.5-5.0ProMercy Health St. Anne HospitalComment on above:Performed By: #### XENIA, 26547- 0, , CBCA #### [facility] ([id number]) [address] [place], [place] [address]Rrmycbudu [Moles/Vol]3.6 mmol/LNormal3.5-5.0ProMercy Health St. Anne HospitalComment on above:Performed By: #### XENIA, 53327-2, , CBCA #### [facility] ([id number]) [address] [place], [place] [address]PZZUMDNIPNSVlp 39-57-0822Fiwzinhieaec [Mass/Vol]262 mg/dLHigh 27-150ProMercy Health St. Anne HospitalComment on above:Performed By: #### CMP, 95023- 0, 10115-6, CBCA #### [facility] ([id number]) [address] [place], [place] [address]WJ CHEST 1 VWon 58-02-5539MK CHEST 1 VWXR CHEST 1 VW HISTORY: [...] Francisco Javier Aceves MD on 04/16/2023 5:28 AMNormalCrystal Clinic Orthopedic CenterARTERIAL BLOOD GASon 01-58-7308OPMFY'S TESTPassNormalCrystal Clinic Orthopedic CenterComment on above:Performed By: #### ABG #### [facility] ([id number]) [address] [place], [place] [address]UPQJ,DEFICIT2.0 MMOL/LNormal0.0-2.0[facility] Comment on above:Performed By: #### ABG #### [facility] ([id number]) [address] [place], [place] [address]Rcsy uicvfwnalcp42.6 [degF]Hmurox87.0[facility] Comment on above:Performed By: #### ABG #### [facility] ([id number]) [address] [place], [place] [address]XFM3 (Bld) [Moles/Vol]24.5 mmol/PGfzndi53-68KqmIuhwptMercy Health St. Anne HospitalComment on above:Performed By: #### ABG #### [facility] ([id number]) [address] [place], [place] [address]MZGJ. O2 CONC.60 %NormalProMercy Health St. Anne HospitalComment on above:Performed By: #### ABG #### [facility] ([id number]) [address] [place], [place] [address]Xzemwf (Bld) [Partial pressure]79 mm[Hg]Sek66-074XbyOrlgpfMercy Health St. Anne HospitalComment on above:Performed By: #### ABG #### [facility] ([id number]) [address] [place], [place] [address]Vjqzdp saturation in Blood94.0 %Normal>90ProMercy Health St. Anne HospitalComment on above:Performed By: #### ABG #### [facility] ([id number]) [address] [place], [place] [address]XJRTNJ SOURCEVentNormalProMercy Health St. Anne HospitalComment on above:Performed By: #### ABG #### [facility] ([id number]) [address] [place], [place] [address]LDZ630.9 KBTZXjfv67-85CwuCeoawuMercy Health St. Anne HospitalComment on above:Performed By: #### ABG #### [facility] ([id number]) [address] [place], [place] [address]hG (Bld)7.317 [pH]Low7.350-7.450ProMercy Health St. [facility] Hospital Comment on above:Performed By: #### ABG #### [facility] ([id number]) [address] [place], [place] [address]XJAIAK SITELRadNormalProMercy Health St. Anne HospitalComment on above: Performed By: #### ABG #### [facility] ([id number]) [address] [place], [place] [address]YHVDVX TYPEARTERIALNormalProMercy Health St. Anne HospitalComment on above:Performed By: #### ABG #### [facility] ([id number]) [address] [place], [place] [address]LSRFR CULTUREon 51-92-6236Zvczwwll identified Aer cx Nom (Bld) CULTURE RESULTS NO GROWTH [address] Anne HospitalBacteria identified Aer cx Nom (Bld)CULTURE RESULTS NO GROWTH 5 DAYSNormalProWright-Patterson Medical Center HospitalCBC AND AUTO DIFFon 04-15-2023 ABSOLUTE BASOPHIL0.0 X10E9/LNormal0.0-0.2PDelaware County HospitalComment on above:Performed By: #### XENIA, 01607-2, , CBCA #### [facility] ([id number]) [address] [facility] [place], [place] [address]LCWFNNGN NEUTROPHIL1.9 X10E9/LNormal1.5-6.6ProMercy Health St. Anne HospitalComment on above:Performed By: #### XENIA, 12296-4, , CBCA #### [facility] ([id number]) [address] [facility] [place], [place] [address]Ncvlnhhkzdmd Ql (Bld)2+AbnormalNONEPDelaware County Hospital Comment on above:Performed By: #### XENIA, 54496-8, , CBCA #### [facility] ([id number]) [address] [facility] [place], [place] [address]Faejjhfjs/100 WBC (Bld)0.2 %NormalCrystal Clinic Orthopedic Center Comment on above:Performed By: #### XENIA, 75019-2, , CBCA #### [facility] ([id number]) [address] [facility] [place], [place] [address]Ixbrgdsdovm (Bld) [#/Vol]0.0 10*3/uLNormal0.0-0.4C[facility] Clinic Orthopedic CenterComment on above:Performed By: #### XENIA, 39933-6, , CBCA #### [facility] ([id number]) [address] [facility] [place], [place] [address]Hiuicefgxsu/100 WBC (Bld)0.0 %NormalCrystal Clinic Orthopedic Center Comment on above:Performed By: #### XENIA, 11577-9, , CBCA #### [facility] ([id number]) [address] [place], [place] [address]Fumvunbclen distribution width (RBC) [Ratio]22.0 %High11.5-15.0 ProMedicHolmes County Joel Pomerene Memorial HospitalComment on above:Performed By: #### XENIA, 33583-1, , CBCA #### [facility] ([id number]) [address] [place], [place] [address]Oiafqbmrao (Bld) [Volume fraction]28.7 %Ehy99-34HvzKuhmalCrystal Clinic Orthopedic CenterComment on above:Performed By: #### CMP, 82736-6, 11104-5, CBCA #### [facility] ([id number]) [address] [place], [place] [address]Zojnkouxhz (Bld) [Mass/Vol]9.1 g/dLLow11.7-15.5PDelaware County HospitalComment on above:Performed By: #### CMP, 90900-9, , CBCA #### [facility] ([id number]) [address] [place], [place] [address]Jopsrbixesj (Bld) [#/Vol]0.6 10*3/uLLow1.0-3.5PDelaware County HospitalComment on above:Performed By: #### CMP, 65515-1, , CBCA #### [facility] ([id number]) [address] [place], [place] [address]Ktndvrgcgqq/100 WBC (Bld)22.8 %NormalCrystal Clinic Orthopedic Center Comment on above:Performed By: #### CMP, 63712-0, , CBCA #### [facility] ([id number]) [address] [place] [address]WDV (RBC) [Entitic mass]27.1 fcSoihae30-74HyzQiibjgCrystal Clinic Orthopedic CenterComment on above:Performed By: #### CMP, 36411-7, , CBCA #### [facility] ([id number]) [address] [place], [place] [address]KUPV (RBC) [Mass/Vol]31.8 g/fAFnd31-79KlqSwzlqaCrystal Clinic Orthopedic Center Comment on above:Performed By: #### CMP, 01972-0, , CBCA #### [facility] ([id number]) [address] [place], [place] [address]JOR (RBC) [Entitic vol]85 kYMbegad25-463LrjKcevjo Baypark HospitalComment on above:Performed By: #### CMP, 71672-5, 52617-3, CBCA #### [facility] ([id number]) [address] [place], [place] [address]Veowehddv (Bld) [#/Vol]0.2 10*3/uLNormal0-0.9ProMercy Health St. Anne HospitalComment on above:Performed By: #### CMP, 70141-8, 85324-4, CBCA #### [facility] ([id number]) [address] [place], [place] [address]Fdimxnsmi/100 WBC (Bld)7.7 %NormalCrystal Clinic Orthopedic Center Comment on above:Performed By: #### CMP, 73453-2, 31217-5, CBCA #### [facility] ([id number]) [address] [place], [place] [address]Yhwpddyiabn/100 WBC (Bld)69.3 %NormalCrystal Clinic Orthopedic Center Comment on above:Performed By: #### XENIA, 61641-3, , CBCA #### [facility] ([id number]) [address] [place], [place] [address]Jbimdoti mean volume (Bld) [Entitic vol]7.5 fLNormal7-12 [facility] CenterComment on above:Performed By: #### CMP, 25095-1, 72439-6, CBCA #### [facility] ([id number]) [address] [place], [place] [address]Qwwouzlpt (Bld) [#/Vol]222 10*3/vQGkpgee448-192EryUazpss Baypark HospitalComment on above:Performed By: #### CMP, 29393-8, 53495-3, CBCA #### [facility] ([id number]) [address] [place], [place] [address]QJL COUNT3.36 X10E12/LLow3.80-5.20Pro[facility] Comment on above:Performed By: #### XENIA, 02599-9, , CBCA #### [facility] ([id number]) [address] [place], [place] [address]WVB (Bld) [#/Vol]2.7 10*3/uLLow4.0-11.0ProMercy Health St. Anne HospitalComment on above:Performed By: #### CMP, 07368-2, , CBCA #### [facility] ([id number]) [address] [place], [place] [address]LSDBFLMIWWQKF METABOLIC PANELon 35-16-6970Hdftipf [Mass/Vol]2.4 g/dLLow3.2-5.3ProMedMercy Health Urbana HospitalComment on above:Performed By: #### XENIA, 55811-8, , CBCA #### [facility] ([id number]) [address] [place], [place] [address]ODG [Catalytic activity/Vol]63 U/PBjguvf34-630ZryXdrcrfMercy Health St. Anne HospitalComment on above:Performed By: #### XENIA, 41870-0, , CBCA #### [facility] ([id number]) [address] [place], [place] [address]HPT [Catalytic activity/Vol]18 U/LNormal0-31ProMedMercy Health Urbana HospitalComment on above:Performed By: #### CMP, 03535-7, , CBCA #### [facility] ([id number]) [address] [place], [place] [address]Dkdps gap [Moles/Vol]6 mmol/LNormal5-15ProMercy Health St. Anne HospitalComment on above:Performed By: #### CMP, 80134-3, , CBCA #### [facility] ([id number]) [address] [place], [place] [address]YUA [Catalytic activity/Vol]24 U/LNormal0-41ProW[facility]-Pat[facility] HospitalComment on above:Performed By: #### CMP, 69392-3, 96902-9, CBCA #### [facility] ([id number]) [address] [place], [place] [address]Bavhknfvd [Mass/Vol]0.7 mg/dLNormal0.3-1.2PDelaware County HospitalComment on above:Performed By: #### XENIA, 67436-9, 96880-1, CBCA #### [facility] ([id number]) [address] [place], [place] [address]Gkaccae [Mass/Vol]7.8 mg/dLLow8.5-10.5PDelaware County Hospital Comment on above:Performed By: #### XENIA, 30204-9, , CBCA #### [facility] ([id number]) [address] [place], [place] [address]Bsovszbq [Moles/Vol]115 mmol/TFtvt87-997JlvBqyglxMercy Health St. Anne HospitalComment on above:Performed By: #### XENIA, 85586-0, , CBCA #### [facility] ([id number]) [address] [place], [place] [address]YA3 [Moles/Vol]25 mmol/NIzcgef24-00WkgFeaeojDelaware County Hospital Comment on above:Performed By: #### XENIA, 27201-6, , CBCA #### [facility] ([id number]) [address] [place], [place] [address]Neqcbxlmjf [Mass/Vol]1.43 mg/dLHigh0.40-1.00C[facility] Clinic Orthopedic CenterComment on above:Result Comment: METHOD TRACEABLE TO IDMS STANDARD Performed By: #### XENIA, 95986-8, , CBCA #### [facility] ([id number]) [address] [place], [place] [address]VYP/1.73 sq M.predicted among non-blacks MDRD (S/P/Bld) [Vol rate/Area]42 mL/min/{1.73_m2}Low>59ProMercy Health St. Anne HospitalComment on above: Result Comment: Reported eGFR is based on the CKD-EPI 2020 equation that does not use a race coefficient.Performed By: #### XENIA, 76735-8, , CBCA #### [facility] ([id number]) [address] [place], [place] [address]Qsitpih [Mass/Vol]118 mg/oCLbfs88-59NluUcbqhlCrystal Clinic Orthopedic Center Comment on above:Performed By: #### XENIA, 74623-9, 81387-4, CBCA #### [facility] ([id number]) [address] [place], [place] [address]Sdtxswwdk [Moles/Vol]2.8 mmol/LLow3.5-5.0ProMercy Health St. Anne HospitalComment on above:Performed By: #### XENIA, 54427-2, , CBCMindi #### [facility] ([id number]) [address] [place], [place] [address]Kuzzajm [Mass/Vol]6.0 g/dLNormal6.0-8.0ProMercy Health St. Anne HospitalComment on above:Performed By: #### XENIA, 46414-9, , CBCA #### [facility] ([id number]) [address] [place], [place] [address]Yuxauj [Moles/Vol]146 mmol/YPudjuz845-418HnaQimeer Baypark HospitalComment on above:Performed By: #### XENIA, 37724-0, , CBCA #### [facility] ([id number]) [address] [place], [place] [address]Gnxf nitrogen [Mass/Vol]11 mg/dLNormal5-23ProMercy Health St. Anne HospitalComment on above:Performed By: #### XENIA, 73817-6, , CBCA #### [facility] ([id number]) [address] [place], [place] [address]Bagsbgg Glucometer (BldC) [Mass/Vol]on 63-01-7803Vyykvgg [Mass/Vol]118 mg/rFLaed31-57DphJxqvdkMercy Health St. Anne HospitalGlucose [Mass/Vol]83 mg/dL Wgogfa13-98CaeUpzicvMercy Health St. Anne HospitalGlucose [Mass/Vol]112 mg/tCMhuq54-74 [facility] Orthopedic CenterGlucose [Mass/Vol]128 mg/zHXdxx19-17BveZznfarMercy Health St. Anne HospitalLOWER RESPIRATORY CULTUREon 03-39-4705Bvmdjpjm identified Respiratory culture Nom (Sput)GRAM STAIN 0 to 1 WHITE BLOOD CELLS/LPF 0 to 1 SQUAMOUS EPITHELIAL CELLS/LPF 0 CILIATED EPITHELIAL CELLS/LPF FEW YEAST CULTURE RESULTS RARE KLEBSIELLA PNEUMONIAE RARE YEAST RARE YEAST VARIANT Jie Garcia, MOLECULAR BIOLOGIST, requested susceptibility on GNR on 04/17/23 Organism: [...] PIPERACIL/TAZOBACTAM S 16 F TOBRAMYCIN S <=[address] Anne HospitalComment on above: Performed By: #### 624-7 #### [facility] ([id number]) [address] [place] [address], [address] [place], [place] [address]IMFYQAWUBqy 04-72-1438Bbxwpmdbo [Mass/Vol]2.0 mg/dLNormal1.8-2.6 [facility] Orthopedic CenterComment on above:Performed By: #### XENIA, 98181-8, 51880-6, CBCA #### [facility] ([id number]) [address] [place] [address]YWAD PCR NASALon 31-00-3590AGOO DNA HUBERT+probe Ql (Unsp spec) NegativeNormalNEGProMercy Health St. Anne HospitalComment on above:Performed By: #### XENIA, 62252-8, 36796-5, CBCA #### [facility] ([id number]) [address] [place] [address]WPLAKPPQJku 64-55-7934Iisrmimcb [Moles/Vol]3.8 mmol/LNormal 3.5-5.0ProMercy Health St. Anne HospitalComment on above:Performed By: #### XENIA, 34823- 0, 97425-4, CBCA #### [facility] ([id number]) [address] [facility] [place] [address]Dnmmpdzrq [Moles/Vol]3.5 mmol/LNormal3.5-5.0ProMercy Health St. Anne HospitalComment on above:Performed By: #### XENIA, 48459-3, 15331-1, CBCA #### [facility] ([id number]) [address] [facility] [place], [place] [address]Drxvjgdxliluo [place] [Mass/Vol]on 80-76-9657CTNFDLSXUKNBE7.57 ng/mL High<0.05ProMercy Health St. Anne HospitalComment on above:Result Comment: NOTE <0.50 ng/mL - Low risk of severe sepsis and/or septic shock. <2.00 ng/mL - Recommend retesting within 6-24 hours. >2.00 ng/mL - High risk of sepsis and/or septic shock.Performed By: #### XENIA, 49841-5, 47444-2, CBCA #### [facility] ([id number]) [address] [facility] [place], [place] [address]JD CHEST 1 VWon 63-25-2539XDIG-CoV-2 (COVID-19) RNA HUBERT+probe Ql (Unsp spec)XR CHEST [...] Francisco Javier Aceves MD on 04/15/2023 5:[address] Anne HospitalXR lumbar spine 6V w bendingon 30-07-5295RM lumbar spine 6V w bending [facility] Main [address] [address] XRay Report Signed Patient: Monet Recinos MR#: [id number] 80 : 1960 Acct:[id number] Age/Sex: 62 / F ADM Date: 12/11/22 [...] Marlyn Samayoa M.D.12/11/2022 10:23 AM Dictation Location: [place] [address] Transcribed By: [facility] 12/11/22 1023 Dictated By: Marlyn Samayoa MD 12/11/22 1020 Signed By: 12/11/22 [facility] head/brain wo/w an[place]ette 11-94-7318ML head/brain wo/w [facility] Main [place] [address] [place] [address] MRI Report Signed Patient: Monet Recinos MR#: [id number] 80 : 1960 Acct:[id number] Age/Sex: 61 / F ADM Date: 01/24/22 Loc: MR Room: Type: [facility] CLI Attending Dr: Eric Huerta DO [...] Jamie Oconnor M.D.01/24/2022 3:41 PM Dictation Location: [place] [address] Transcribed By: [facility] 01/24/22 1541 Dictated By: Jamie Oconnor II, MD 01/24/22 1537 Signed By: 01/24/22 [facility].Auto Diff 1on 01-07-2018 Auto Baso %0.6 %Normal0.2-2.0[facility] CampusComment on above:Performed By: #### 0012663, 4535333, 4205244264, 4489861866, 0362220410, 724236553, 6600576, 74069690 ####[facility] (DEFAULT)[address] [place] [address] Auto Chaffee %6 %Normal1-12[facility] HospitalComment on above:Performed By: #### 0251609, 9840190, 0446005667, 4402801919, 0999457069, 534296098, 9843858, 43662922 ####[facility] (DEFAULT)[address] [place] [address] Auto Neut %54 %Qzrvew60-58Wnmqlirj HospitalComment on above:Performed By: #### 4734859, 0689277, 4262404081, 6969368739, 6199301344, 056666850, 2734113, 16487409 ####[facility] (DEFAULT)[address] [place], [place] [address] Baso Abs#0.0 t52Ugtdqz0.0-0.2[facility]uder HospitalComment on above:Performed By: #### 1452851, 0614924, 0251714230, 4376274922, 5336626514, 765690352, 3738032, 00792511 ####[facility] (DEFAULT)[address] [place], [place] [address] Eos Abs#0.1 k88Zrudqa1.0-0.4[facility] HospitalComment on above:Performed By: #### 1783063, 5683797, 5559446871, 3909359343, 7670723156, 761702290, 9158015, 77069286 ####[facility] (DEFAULT)[address] [place] [address] Eosinophils/100 WBC Auto (Bld)1.4 %Normal0.9-4.0[facility] HospitalComment on above:Performed By: #### 3945186, 8640095, 6880629802, 1928850165, 1630931295, 445003847, 9127184, 69086231 ####[facility] (DEFAULT)[address] [place] [address]Olfdatyevyi Auto #/vol (Bld)2.8 i94Otpfiq8.3-2.9 [facility] HospitalComment on above:Performed By: #### 2521642, 0024111, 1309866987, 4084324259, 8102596049, 322444322, 2185624, 23868155 ####[facility] (DEFAULT)[address] [place] [address]Czyfjqxwykz/100 WBC Auto (Bld)39 %Qpzxiw67-79Yecqvyae HospitalComment on above:Performed By: #### 1142144, 2275881, 0798872513, 9418567793, 5761553767, 543972607, 4063908, 68828295 ####[facility] (DEFAULT)[address] [place] [address] Chaffee Abs#0.4 w78Qejoth2.0-0.8[facility] HospitalComment on above:Performed By: #### 5055408, 8610143, 5693933233, 2879581579, 4784710340, 100687360, 4351380, 33904375 ####[facility] (DEFAULT)[address] [place] [address] Neut Abs#3.9 u16Evsklu2.5-9.2Magrlakehealth beachwood medical center HospitalComment on above:Performed By: #### 8132455, 3282216, 7876692484, 1782042901, 4935512559, 215760919, 9583036, 86363217 ####[facility] (DEFAULT)[address] [place] [address] Acet Levelon 93-30-9607Zwfjbfzrzzcfz mass conc<30Sjycmi82-43Dtcaxygq Hospital Comment on above:Performed By: #### 5551394, 1590772, 8730990713, 6962472012, 5914929895, 370043850, 1070392, 33870730 ####[facility] (DEFAULT)[address] [place] [address]EGC w/ Auto Diffon 32-61-5561Mkfbnyedpor distribution width Auto Ratio (RBC)17.0 %High11.5-15.0[facility] HospitalComment on above:Performed By: #### 5595895, 2926803, 9536673015, 8042244260, 7829895949, 765828220, 1752034, 74674426 ####[facility] (DEFAULT)[address] [place], [place] [address]Hematocrit Auto Volume Fraction (Bld)41.2 % High33.7-40.4[facility] HospitalComment on above:Performed By: #### 2896746, 5830801, 3087650959, 7161450894, 7196583614, 002916608, 3470688, 50993018 ####[facility] (DEFAULT)[address] [place], [place] [address]Hemoglobin mass conc (Bld)14.0 g/nHWfgsxb15.3-15.9[facility] HospitalComment on above: Performed By: #### 8657521, 5993125, 4761121315, 5223761388, 1032702918, 010848856, 5797606, 60681848 ####[facility] (DEFAULT)[address] [place], [place] [address]Man Diff?AutoNormalJ.[facility]. [facility] HospitalComment on above:Performed By: #### 2571609, 2696353, 5375463375, 1557750460, 7997187131, 791625476, 6521795, 72410367 ####[facility] (DEFAULT)[address] [place], [place] [address]H Auto Entitic mass (RBC)29 exXzjqfu98-01Ayitomcd HospitalComment on above:Performed By: #### 3513839, 8018984, 7464007104, 9835317596, 1314556409, 961749479, 2597652, 71418685 ####[facility] (DEFAULT)[address] [place], [place] [address]HC Auto mass conc (RBC)34 g/dL Nhannz04-09Rjgiatcu HospitalComment on above:Performed By: #### 3708916, 6914994, 5330865253, 7877113325, 2008075663, 017563074, 1482480, 61499007 ####[facility] (DEFAULT)[address] [place], [place] [address]V Auto Entitic volume (RBC)84 kQLngefz67-992Tpazwyva HospitalComment on above:Performed By: #### 0033710, 9244129, 7003808144, 9115681533, 2502817603, 145786324, 8091199, 08757088 ####[facility] (DEFAULT)[address] [place] [address]Nxidxnwk mean volume Auto Entitic volume (Bld)9.8 fLNormal6.3-10.2 [facility] HospitalComment on above:Performed By: #### 2618271, 6029920, 0499794453, 3521906550, 5698600663, 642459344, 9114333, 11295698 ####[facility] (DEFAULT)[address] [place] [address]Ysttqynqn Auto #/vol (Bld)268 t02Yhlfxw969-343Rjylvsva HospitalComment on above:Performed By: #### 5968432, 0293786, 5818667410, 4113042132, 6032094353, 973029109, 2083157, 26616869 ####[facility] (DEFAULT)[address] [place] [address] RBC Auto #/vol (Bld)4.90 g88Sjyndv3.70-5.30[facility] HospitalComment on above: Performed By: #### 4565588, 8552077, 2713938180, 9071846213, 6834675245, 475861354, 8261701, 26648904 ####[facility] (DEFAULT)[address] [place] [address]ZQR Auto #/vol (Bld)7.2 m22Fpajwnm Interpretation CodeJ.W. [facility] Hospital HospitalComment on above:Performed By: #### 4738382, 6975188, 1455478662, 8058222655, 8441343731, 172737269, 4835016, 89316012 ####[facility] (DEFAULT)[address] [place] [address]MSF Standardon 07-42-8383Uuxx Total0.2 mg/dLLow0.3-1.2Magrlakehealth beachwood medical center HospitalComment on above: Performed By: #### 6540824053, 0090153522 ####[facility] (DEFAULT)[address] [place] [address] 74008tHYS Non AA>60Invalid Interpretation Code [facility] HospitalComment on above:Performed By: #### [id number], 6199403194 ####[facility] (DEFAULT)[address] [place] [address] 76920vEYO AA>60 Invalid Interpretation CodeJ.W. Ruby Memorial Hospital HospitalComment on above:Result Comment: Chronic Kidney disease could be indicated at eGFRs of less than 60 ml/min/1.73m2. Kidney Failure is indicated at less than 15 ml/min/1.73m2 Performed By: #### 9874783227, 4672166997 ####[facility] (DEFAULT)[address] [place] [address] 73[address]Zvqlxhv mass conc3.8 g/dLNormal3.5-5.0 [facility] CampusComment on above:Performed By: #### 7040319306, 2805816465 ####[facility] (DEFAULT)[address] [place] [address] Albumin/Globulin mass ratio1.1 {ratio}Low1.4-2.6Mmemorial health [facility] HospitalComment on above:Performed By: #### 9668141075, 9327543364 ####[facility] (DEFAULT)[address] [place] [address] 77054Mwb Phos81 IU/MSmylsp94-12 [facility] CampusComment on above:Performed By: #### 1847864437, 2694015825 ####[facility] (DEFAULT)[address] [place] [address] 22619CQZ/SGPT 15.0 IU/RZclmda79.0-54.0[facility] HospitalComment on above:Performed By: #### 0378264411, 1638291438 ####[facility] (DEFAULT)[address] [place] [address] 49515Nxpwr gap 3 molar conc13.0 mmol/LNormal5.0-19.0[facility] HospitalComment on above:Performed By: #### [id number], 6453475449 ####[facility] (DEFAULT)[address] [place] [address] 41817PSY/SGOT18 IU/LNormal 15-41[facility] CampusComment on above:Performed By: #### 7335440452, 4710318843 ####[facility] (DEFAULT)[address] [place] [address] 54[address]Oiyvkjm mass conc8.8 mg/dLLow8.9-10.3Mmemorial health system HospitalComment on above:Performed By: #### 6564335789, 7345808362 ####[facility] (DEFAULT)[address] [place] [address] 47511Dtdypysh molar fxlw296 mmol/DFhscpj792-230Uoikudeb Hospital Comment on above:Performed By: #### 3723234839, 5966829767 ####[facility] (DEFAULT)[address] [place] [address] 069[address]SC1 molar conc23 mmol/LNormal 21-32[facility] CampusComment on above:Performed By: #### 4404473107, 3724419111 ####[facility] (DEFAULT)[address] [place] [address] Creatinine mass conc0.77 mg/dLNormal0.60-1.30[facility] CampusComment on above: Performed By: #### 0792771052, 7985131403 ####[facility] (DEFAULT)[address] [place] [address] 065[address]Dfjaalzi Calculated mass conc (S)3.6 g/dL Normal1.5-4.3Mmemorial health system HospitalComment on above:Performed By: #### 2831912922, 8955041191 ####[facility] (DEFAULT)[address] [place] [address] 577[address]Rujbdme mass conc91.0 mg/zGGftksh12.0-118.0[facility] CampusComment on above:Performed By: #### 8300034181, 2011532752 ####[facility] (DEFAULT)[address] [place] [address] 08888Inxikbdnce627 mOsm/LInvalid Interpretation CodeJ.W. [facility] Hospital HospitalComment on above:Performed By: #### [id number], [id number] ####[facility] (DEFAULT)[address] [place] [address] 27013Cvtrvijed molar conc4.0 mmol/LNormal3.6-5.1MK[facility]tering [facility] Comment on above:Performed By: #### [id number], 9775963276 ####[facility] (DEFAULT)[address] [place] [address] 80216Btcmnrp mass conc7.4 g/dLNormal 6.5-8.1MKettering Health SpringfieldComment on above:Performed By: #### [id number], 5530395491 ####[facility] (DEFAULT)[address] [place] [address] 35467Kdlmmv molar uxag633.0 mmol/XBcrubj961.0-144.0[facility] CampusComment on above:Performed By: #### 5478323869, 5641278260 ####[facility] (DEFAULT)[address] [place] [address] 71991Roxr nitrogen mass conc17 mg/dL Normal8-26[facility] CampusComment on above:Performed By: #### 8238298987, 5622091172 ####[facility] (DEFAULT)[address] [place] [address] 11472Bkan nitrogen/Creatinine mass ratio22.0 mg/mgHigh4.6-16.2MKettering Health Springfield Comment on above:Performed By: #### 7100712539, 2977791640 ####[facility] (DEFAULT)[address] [place] [address] 75884CZ Clinical Summaryon 60-05-2298MF Clinical SummarySt. [facility] - Emergency [address] [place] [address] ed Clinical SummaryPERSON INFORMATIONName: MONET RECINOS Age: 57 Years Sex: FEMALEDOB: [birth year] MRN: Acct#:Visit Reason: General medical; MEDICAL CLEARENCE Arrival: 01/07/18 13:27:00 Discharge: 01/07/18 15:22:00LOS: 000 01:55 Check In: 01/07/18 13:27:00 Checkout:01/07/18 15:22:00Address:[address] [facility] [address]BEK: Provider, NonePROVIDER INFORMATIONProvider Role Assigned UnassignedRylee Gaxiola [...] Complaint from Nursing Triage Note : Chief Wmrnqfcjo73/13/18 13:28 EDT Chief Complaint sent from [facility] for medical clearance, depressed/anxiety .History of Present Qrpnwbo14-phae-xvh female presents to the emergency department for medical clearance for psychiatr ic admission. Patient is feeling very depressed. She states she feels like she just wants to go to sleep and never wake up. She was seen at [facility] and will be admitted to [address]Review of SystemsConstitutional symptoms: No fever, no [...] risk.Documents reviewed: Emergency department nurses' notes, [facility] Counselling.Orders Launch OrdersLaboratory:Urinalysis with Culture, if indicated [...] Lab Collect.Results review: Lab results : Lab Ihpxtdkmp49/13/18 14:19 EDT Sodium Level 138.0 mmol/L Potassium [...] % Auto Lymph % 39 % Auto Chaffee % 6 % Auto Eos % 1.4 % Auto Baso % 0.6 % Neut Abs# 3.9 x103/mcL Lymph Abs# 2.8 x103/mcL Chaffee Abs# 0.4 x103/mcL Eos Abs# 0.1 x103/mcL [...] then he is to be taken to [facility] for psychiatric admission. Patient with very [...] She will transport the patient directly to [address] as arrabnged by counsellor and accepted by Dr. Hackett.Impression and PlanDiagnosisSuicidal thoughts (HER95-YC R45.851, Discharge, Medical)Depression, major (GMS77-AB F32.9, Discharge, Medical)PlanDisposition: Transfer to other location:Time: 01/07/18 15:05:00, Facility name: [facility], Accepted by: Dr. Hackett, [address] [place] [address], Time 01/07/18 14 :50:00, Referral to [facility].Patient was given the following educational materials: Major Depressive Disorder, Adult.Follow up with: Report directly to [facility] main entrance to admitting office. You will be taken to [address] [place] [address] for admission by hospital personnel 01/07/2018 4:00 PM; .Counseled: Patient, Friend, Regarding diagnosis, Regarding diagnostic results, Regarding treatment plan, Regarding prescription, Patient indicated understanding of instructions.DISCHARGE INFORMATION:Discharge Disposition: Disch /Transfer to Psychiatric FacilityDischarge Location: [facility] -SdkyPATIENT EDUCATION INFORMATIONInstructions: Major Depressive Disorder, AdultFollow- Up:With: Address: When:Report directly to [facility] main entrance to admitting office. You will be taken to [address] [place] [address] for admission by hospital personnel 01/07/2018 4:00 PMDIAGNOSIS:Depression, major; Suicidal thoughtsPatient Understands:Comment:[facility] TownshipED Note - Otheron 84-61-9398ZO Note - [id number]- I faxed over patient information at this time to [facility],to Adrian Cordon,for medical clearance[Electronically Signed on: 01/07/2018 14:57 EDT] Familia Robertson[Verified on: 01/07/2018 14:57 EDT] [facility] ED Note - Physicianon 57-49-4131NF Note - PhysicianPatient: MONET RECINOS : 57 years Sex: FEMALE : 64Associated Diagnoses: Suicidal thoughts; Depression, majorAuthor: Todd Gaxiola InformationTime seen: Date & time 01/07/18 13:40:00.History source: Patient.Arrival mode: Private vehicle.History limitation: None.Additional information: Chief Complaint from Nursing Triage Note : Chief Dvyfloawm31/13/18 13:28 EDT Chief Complaint sent from [facility] for medical clearance, depressed/anxiety .History of Present Xbdbqvj93-vacs-owk female presents to the emergency department for medical clearance for psychiatric admission. Patient is feeling very depressed. She states she feels like she just wants to go to sleep and never wake up. She was seen at [facility] and will be admitted to [address]Review of SystemsConstitutional symptoms: No fever, no [...] Depression, suicide risk.Documentsreviewed: Emergency department nurses' notes, [facility].Orders Launch OrdersLaboratory:Urinalysis with Culture, if indicated [...] Lab Collect.Results review: Lab results : Lab Fariuhcij55/13/18 14:19 EDT Sodium Level 138.0 mmol/L Potassium [...] % Auto Lymph % 39 % Auto Chaffee % 6 % Auto Eos % 1.4 % Auto Baso % 0.6 % Neut Abs# 3.9 x103/mcL Lymph Abs# 2.8 x103/mcL Chaffee Abs# 0.4 x103/mcL Eos Abs# 0.1 x103/mcL [...] then he is to be taken to [facility] for psychiatric admission. Patient with very [...] She will transport the patient directly to [address] as arrabnged by counsellor and accepted by Dr. Hackett.Impression and PlanDiagnosisSuicidal thoughts (ARX58-AI R45.851, Discharge, Medical)Depression, major (CVL90-GT F32.9, Discharge, Medical)PlanDisposition: Transfer to other location: Time: 01/07/18 15:05:00, Facility name: [facility], Accepted by: Dr. Hackett, [address] [place] [address], Time 01/07/18 14:50:00, Referral to [facility].Patient was given the following educational materials: Major Depressive Disorder, Adult.Follow up with: Report directly to [facility] main entrance toadmitting office. You will be taken to [address] [place] [address] for admission by hospital personnel 01/07/2018 4:00 PM; .Counseled: Patient, Friend, Regarding diagnosis, Regarding diagnostic results, Regarding treatment plan, Regarding prescription, Patient indicated understanding of instructions.[Electronically Signed on: 01/07/2018 15:18 EDT] Rylee Gaxiola[Electro nically Signed on: 01/07/2018 20:18 EDT] Nadege Fernandez MD[Verified on: 01/07/2018 15:18 EDT] Rylee GaxiolaSelect Medical Specialty Hospital - CantonED Note-Nursingon 55-33-5172HI Note-NursingPt is transferred to [facility] per private vehicle to be admitted to [address] [place] [address] room 1, bed #2. Pt's friendis driving her to [facility].The pt andher friend were instructed to report to [facility] front lobby, admitting department and then the pt. will be escorted to [address] [place] [address] per Security. pt had not beloingins with her at this time but the clothining on her back.[facility] Note-NursingPt sitting on the cart in ER room 4. Upon entering the room the pt did establish eye contact but she is blunted and does not initiate any conversation. She will look at you and she will answer questions. She admits that she just came from [facility] and she states I don't feel right . Pt states she is taking her meds as she is supposed to but she feels like I want to go to sleep and not wake up Pt states she does feel depressed and she does not feel suicidal, she just feel sad. Her [employer] is Dr. Rodriguez and she can not recall her Psychiatrist's name.Her friend brought lto the ER from [facility]. [facility] Patient Education Noteon [id number] Patient Education NoteEducation MaterialsAvita Health System Bucy[facility] Hospital and Behavioral HealthMajor Depressive Disorder, AdultMajor [...] by your health care provider.General instructions? Take wotl-rpv-qrzojyw and prescription medicines only as told by [...] This is important.Where to find more information:National [place] on Mental Illness? www.isadora.orgU.S. National [place] of Mental Health? www.[facility].nih.govNational Suicide Prevention Lifeline? 3-774-737-TALK (8905). This is free, 24-hour help.Contact a healthcare [...] Reviewed: 10/22/2016Elsevier Interactive Patient Education ? 2016 cicayda.[facility] TownshipED Patient Summary on 37-24-1851LZ Patient SummarySt. [facility] - Emergency [address] [place], [place] [address] pATIENT DISCHARGE INSTRUCTIONSPatient InformationName: MONET RECINOS Age: 57 YearsDate of : 64MRN:[id number] For Visit: General medical; MEDICAL CLEARENCEArrival Time: 01/07/18 13:27:00Phone: Primary Care Physician: Provider, NoneAttending Physician: Nadege Fernandez MDComment:Visit Diagnosis:Diagnoses This Visit Depression, major (F32.9) General medical ([id number]) Suicidal thoughts (R46.839)If you received any narcotics, sedation, or any [...] Address: When:Report directly to [facility] main entrance to admitting office. You will be taken to [address] [place] [address] for admission byhospital personnel 01/07/2018 4:00 PMMedication Information:The exam and treatment you received today in the [facility] Emergency Department were for an urgent problem and are not intended as complete care. It is important for you to follow up with a doctor, nurse practitioner, or physician?s emergency veterinary assistant for ongoing care. If your symptoms [...] number so we can reach you if necessary.[facility] Emergency Departmenthas provided you with a complete list of medications post discharge. Please inform your color strainer/provider of your visit and for further instruction [...] by your health care provider.General instructions? Take dnzm-ypo-zlcxdfm and prescription medicines only as told by [...] This is important.Where to find more information:National [place] on Mental Illness? www.isadora.orgU.S. National [place] of Mental Health? www.nimh.nih.govNational Suicide Prevention Lifeline? 7-461-001-TALK (6568). This is free, 24-hour help.Contact a health [...] Reviewed: 10/22/2016Cathi Interactive Patient Education ? 2017 [employer] Viruses or BacteriaWhat?s got you sick?Antibiotics [...] ServicesCenters for Disease Control and Prevention December 2013NoZanesville City HospitalEthanol.on 07-52-8436Meddozm Level<5.5Glsssp5.0-5.0[facility] CampusComment on above:Performed By: #### [id number], [id number] ####[facility] (DEFAULT)[address] [place] [address] 36824Erwkm Redon 24-18-6445Vfjz CollectedYesInvalid Interpretation [facility], Edwin ShawComment on above:Performed By: #### [id number], [id number], [id number], [id number], [id number], [id number], [id number] ####[facility] (DEFAULT)[address] [place] [address] 44509Bavstapdsseo 01-07-2018 Salicylate Lvl<4.6Hywsfh7.0-30.0[facility] CampusComment on above:Result Comment: Salicylate ranges less than 30 mg/dL are considered to be therapeutic. Levels greater than 30 mg/dL are considered toxic and levels greater than 60 mg/dL may be lethal.Performed By: #### [id number], [id number], [id number], [id number], [id number], [id number], [id number] ####[facility] (DEFAULT)[address] [place] [address] 55591BAI w/ Reflex to FT4on 06-45-6040Oyheaqzorwm Qn1.54 mcIU/mLNormal0.45-5.33[facility] CampusComment on above:Result Comment: General Population (males and non- females, aged 21-88) 0.45 - 5.33 Females, 1st Trimester 0.05 - 3.70 Females, 2nd Trimester 0.31 - 4.35 Females, 3rd Trimester 0.41 - 5.18Performed By: #### [id number], [id number] ####[facility] (DEFAULT)[address] [place] [address] 08000Xyspqbwb Noteon 22-22-6006Jslipnre Note [id number]#1.00OTGTParkview Health Triage Panel 12on 66-06-6040Blsiodr mass [facility] Comment on above:Performed By: #### [id number], [id number] ####[facility] (DEFAULT)[address] [place] [address] 02342Vyxzjf Internal ControlPass [facility] TownshipComment on above:Performed By: #### [id number], [id number] ####[facility] (DEFAULT)[address] [place] [address] 62276M Amph ScrNegativeChildren's Hospital of Columbus HospitalComment on above:Performed By: #### [id number], [id number] ####[facility] (DEFAULT)[address] [place] [address] 82343C Carol ScrNegWayne HealthCare Main CampusComment on above: Performed By: #### [id number], [id number] ####[facility] (DEFAULT)[address] [place] [address] 24597W Benzodia ScrPremier Health Comment on above:Performed By: #### [id number], [id number] ####[facility] (DEFAULT)[address] [place] [address] [facility] CampusComment on above:Performed By: #### [id number], [id number] ####[facility] (DEFAULT)[address] [place] [address] 30450V Cocaine ScrNegMiddle Park Medical Center HospitalComment on above:Performed By: #### [id number], [id number] ####[facility] (DEFAULT)[address] [place] [address] 35558L Methadone ScrNegativeNoKnox Community Hospital HospitalComment on above: Performed By: #### [id number], [id number] ####[facility] (DEFAULT)[address] [place] [address] 90958D Methamp ScrnNegativeNormOhioHealth Southeastern Medical Center Hospital Comment on above:Performed By: #### [id number], [id number] ####[facility] (DEFAULT)[address] [place] [address] 87350L Opiate ScrNegativeNormal [facility] HospitalComment on above:Performed By: #### [id number], [id number] ####[facility] (DEFAULT)[address] [place] [address] 44166R Oxycod ScrNegativeNormalJ.W. [facility] HospitalComment on above:Performed By: #### [id number], [id number] ####[facility] (DEFAULT)[address] [place] [address] 76278K Phencyclidine ScrNegativeNormalJ.W. [facility] HospitalComment on above:Performed By: #### [id number], [id number] ####[facility] (DEFAULT)[address] [place] [address] 91697Z Tricyclic Antidepress Scr NegativeNormalJ.W. [facility] HospitalComment on above:Performed By: #### [id number], [id number] ####[facility] (DEFAULT)[address] [place] [address] 09755Zhtaf SourceClean CatchNormalJ.W. [facility] HospitalComment on above:Performed By: #### [id number], [id number] ####[facility] (DEFAULT)[address] [place] [address] 94564XM w Culture if Ind Standardon 66-46-4469Iyfiapgjrz UANormalSdgrlakehealth beachwood medical center HospitalComment on above:Performed By: #### [id number], [id number] ####[facility] (DEFAULT)[address] [place] [address] 67555Krnsd Nom (U)YELLOWInvalid Interpretation CodeMagruder HospitalComment on above:Performed By: #### [id number], [id number] ####[facility] (DEFAULT)[address] [place] [address] 22620Wemrkam?Not IndicatedInvalid Interpretation CodeMagruder HospitalComment on above:Performed By: #### [id number], [id number] ####[facility] (DEFAULT)[address] [place] [address] 72626Iqxdfyn mass conc (U)NegativeInvalid Interpretation Code [facility] HospitalComment on above:Performed By: #### [id number], [id number] ####[facility] (DEFAULT)[address] [place] [address] 76350Jwmpmto Ql (U)NegativeInvalid Interpretation CodeJ.W. Ruby Memorial Hospital HospitalComment on above: Performed By: #### [id number], [id number] ####[facility] (DEFAULT)[address] [place] [address] 27919Mlxcr?Not IndicatedInvalid Interpretation CodeJ.W. Ruby Memorial Hospital HospitalComment on above:Performed By: #### [id number], [id number] ####[facility] (DEFAULT)[address] [place] [address] 21342AX BilirubinNegativeNormalJ.W. [facility] HospitalComment on above:Performed By: #### [id number], [id number] ####[facility] (DEFAULT)[address] [place] [address] 36667HR BloodNegativeNormalNEGATIVESdgruder HospitalComment on above:Performed By: #### [id number], [id number] ####[facility] (DEFAULT)[address] [place] [address] 13844ZD ClarityCLEARNormalCLEAR [facility] HospitalComment on above:Performed By: #### [id number], [id number] ####[facility] (DEFAULT)[address] [place] [address] 65195HF Leuk EstNegativeNormalNEGATIVEOhio Valley Hospitaluder HospitalComment on above:Performed By: #### [id number], [id number] ####[facility] (DEFAULT)[address] [place] [address] 42141QQ NitriteNegativeNormalNEGATIVEJ.W. [facility] Hospital HospitalComment on above:Performed By: #### [id number], [id number] ####[facility] (DEFAULT)[address] [place] [address] 84957ZW pH6.0Invalid Interpretation Code5-8[facility] HospitalComment on above:Performed By: #### [id number], [id number] ####[facility] (DEFAULT)[address] [place] [address] 13804IG ProteinNegativeNormalNEGATIVEJ.W. [facility] Hospital HospitalComment on above:Performed By: #### [id number], [id number] ####[facility] (DEFAULT)[address] [place] [address] 00100TJ Spec Grav>=1.030Invalid Interpretation Code 1.001-1.035[facility] HospitalComment on above:Performed By: #### [id number], [id number] ####[facility] (DEFAULT)[address] [place] [address] 22874OB Urobilinogen0.2 mg/dLNormal0.2-1.0[facility] HospitalComment on above: Performed By: #### [id number], [id number] ####[facility] (DEFAULT)[address] [place] [address] 34373Mjcku SourceClean CatchNormOhioHealth Southeastern Medical Center HospitalComment on above:Performed By: #### [id number], [id number] ####[facility] (DEFAULT)[address] [place] [address] 79550 Vital Signs Date TimeVital SignValuePerforming TgbcdwrrySvlonpiz04-65-6724 12:10-0400Body ejaohs019.3 cmRisa Summers MD Work Phone: [facility]10-13-2025 12:10-0400Body mass index (BMI) [Ratio]35.14 kg/m2Risa Summers MD Work Phone: [facility] Usoyyb31-63-0324 12:10-0400Body ckjmol381 kgRisa Summers MD Work Phone: [facility]10-13-2025 12:10-0400Diastolic blood olwmzbdk32 mm[Hg]Risa Summers MD Work Phone: [facility]10-13-2025 12:10-0400Heart rate 96 /minImad Melina MIJARES Work Phone: [facility]10-13-2025 12:10-9013RsH8% (BldA) [Mass fraction]97 %Risa Summers MD Work Phone: [facility]10-13-2025 12:10-0400Systolic blood kmpakizv402 mm[Hg]Risa Summers MD Work Phone: [facility]09-09-2025 11:48-0400Body nmabyh897.[address]09-09-2025 11:48-0400Body mass index (BMI) [Ratio]36.92 kg/m2Pmh [address] [place], [place] 0[address]9-09-2025 11:48-0400Body xctrig232.[address] [place], [place] 0170208-25-2025 13:11-0400Body fjavua777.[address]08-25-2025 13:11-0400Body mass index (BMI) [Ratio] 36.62 kg/m2Pmh [address] [place], [place] 0170208-25-2025 13:11-0400Body zzbowy603.49 kg Pmh [address] [place], [place] 0170208-21-2025 12:37-0400Body qibaww461.3 cmFaithabby Steiner DO Work Phone: [facility]08-21-2025 12:37-0400Body mass index (BMI) [Ratio]35.66 kg/m2Joabby Perrys DO Work Phone: [facility]08-21-2025 12:37-0400Body ysuratxeaqw87.49 [degF]Rajni Steiner DO Work Phone: [facility]08-21-2025 12:37-0400Body cqbomz577.59 kgRajni Perrys DO Work Phone: [facility]08-21-2025 12:37-0400Diastolic blood ymasrloj27 mm[Hg]Rajni Steiner DO Work Phone: [facility]08-21-2025 12:37-0400Heart rate 88 /minJoabby Perrys DO Work Phone: [facility]08-21-2025 12:37-0400 Respiratory rate20 /minRajni Perrys DO Work Phone: [facility]08-21-2025 12:37-5994NvY4% (BldA) [Mass fraction]95 %Rajni Steiner DO Work Phone: [facility]08-21-2025 12:37-0400Systolic blood grihqntb113 mm[Hg]Rajni Steiner DO Work Phone: [facility]08-11-2025 09:21-2672BuA5% (BldA) [Mass fraction]92 %[facility] JacksonComment on above:Performed By: #### VBG #### [facility] ([address] [address] CWD49-29-5410 13:28-8544AtM0% (BldA) [Mass fraction]94 %[facility] – JacksonComment on above:Performed By: #### BMP #### [facility] ([facility]) [address] [place] [address] OEZ99-87-4714 07:16-8420XfS2% (BldA) [Mass fraction]100 %[facility] – JacksonComment on above:Performed By: #### VBG ####[facility] ([address] [address] CNJ43-39-0793 13:57-0400Body oiinin471.3 cmOdessa Cook APRN-MAXX Work Phone: [facility] Xlhcnb97-56-8877 13:57-0400Body mass index (BMI) [Ratio]37.97 kg/s3IlkctuOdessa Cook APRN-MOLECULAR BIOLOGIST Work Phone: [facility] Zmpsop78-25-0888 13:57-0400Body avymjt344.62 kgOdessa Cook APRN-MOLECULAR BIOLOGIST Work Phone: [facility] Edoczv00-27-6341 13:57-0400Diastolic blood ghprdkqa81 mm[Hg]Odessa Cook APRN-MAXX Work Phone: [facility]08-04-2025 13:57-0400Heart rate 96 /minOdessa Cook APRN-MOLECULAR BIOLOGIST Work Phone: [facility] Zsxwoh00-48-3498 13:57-7174IaQ5% (BldA) [Mass fraction]92 %Odessa Cook APRN-MAXX Work Phone: [facility] Tedspp89-71-1123 13:57-0400Systolic blood jthrkjru308 mm[Hg]Odessa Cook APRN-MAXX Work Phone: [facility] Eyqijg36-32-7941 14:17-0400Body .3 cmRajni Steiner DO Work Phone: [facility] Sepusn20-12-1593 14:17-0400Body mass index (BMI) [Ratio]40.38 kg/m2Rajni Perrys DO Work Phone: [facility] Cayhba46-76-6180 14:17-0400Body ndscywhkkmn79.4 [degF]Rajni Vickys DO Work Phone: [facility] Mdeqmv40-76-7183 14:17-0400Body ilskgl839.1 kgRajni Perrys DO Work Phone: [facility] Ssndnk45-15-6471 14:17-0400Diastolic blood bqgzlins40 mm[Hg]Rajni Steiner DO Work Phone: [facility] Jqlgbr43-52-4292 14:17-0400Heart rate 90 /minRajni Perrys DO Work Phone: [facility] Ymlwjj45-49-6682 14:17-0400 Respiratory rate20 /minRajni Perrys DO Work Phone: [facility] Algbzq68-87-4694 14:17-7139ZhR3% (BldA) [Mass fraction]92 %Rajni Steiner DO Work Phone: [facility] Kdfyff50-98-8483 14:17-0400Systolic blood raysgmwn754 mm[Hg]Rajni Steiner DO Work Phone: [facility] Xzetgt89-17-0288 16:17-0400Body iwzfvi473.3 cmJoabby Perrys DO Work Phone: [facility] Ohpfsm56-60-6683 16:17-0400Body mass index (BMI) [Ratio]38.5 kg/m2Rajni Perrys DO Work Phone: [facility] Crweam00-07-7276 16:17-0400Body vjbxlxbtvam55.29 [degF]Rajni Steiner DO Work Phone: [facility] Aezrxw01-65-0298 16:17-0400Body .3 kgRajni Perrys DO Work Phone: [facility] Qopwct65-30-3354 16:17-0400Diastolic blood aelxahvn63 mm[Hg]Rajni Steiner DO Work Phone: [facility] Gtiqld16-36-1884 16:17-0400Heart rate 77 /minRajni Perrys DO Work Phone: [facility] Gdespn42-25-2867 16:17-0400 Respiratory rate20 /minRajni Perrys DO Work Phone: [facility] Liomwz36-50-2421 16:17-4834XaZ3% (BldA) [Mass fraction]94 %Rajni Steiner DO Work Phone: [facility] Pbuwvf69-70-6822 16:17-0400Systolic blood helonhqf809 mm[Hg]Rajni Steiner DO Work Phone: [facility] Bjktrg25-28-2755 11:44-0400Body yuwath019.3 cmJoabby Steiner DO Work Phone: [facility] Khqbib09-57-2531 11:44-0400Body mass index (BMI) [Ratio]36.4 kg/m2aRjni Steiner DO Work Phone: [facility] Rchpts00-57-6541 11:44-0400Body kfhypbbszsm44.9 [degF]Rajni Steiner DO Work Phone: [facility] Pswqvo54-00-1673 11:44-0400Body gebbfr180.86 kgRajni Steiner DO Work Phone: [facility] Utomfu58-69-0972 11:44-0400Diastolic blood etrtxwoh36 mm[Hg]Rajni Steiner DO Work Phone: [facility] Zxmdja72-99-8619 11:44-0400Heart rate 90 /minRajni Steiner DO Work Phone: [facility] Oladxi94-19-4240 11:44-0400 Respiratory rate20 /minRajni Steiner DO Work Phone: [facility] Xvvwac45-96-7176 11:44-0999CtA9% (BldA) [Mass fraction]97 %Rajni Steiner DO Work Phone: [facility] Kcwoxq97-53-5734 11:44-0400Systolic blood foucxjnv482 mm[Hg]Rajni Steiner DO Work Phone: [facility] Kyvciq14-81-8628 15:18-0400Body ombjcz404.3 cmLeannhernando Guerrero DO Work Phone: [facility] HospitalYioocajuiu99-35-4308 15:18-0400Body mass index (BMI) [Ratio]36.71 kg/o9Gjlicn Cesar DO Work Phone: [facility] HospitalWmymhwgqgr21-08-5720 15:18-0400Body .76 kgLejim Guerrero DO Work Phone: [facility] HospitalUkwhnlcgoo23-85-9658 15:18-0400Diastolic blood unlmjfwg90 mm[Hg]Sydnie Guerrero DO Work Phone: [facility] HospitalQklgwlaxcm39-94-9048 15:18-0400Heart rate93 /min Sydnie Guerrero DO Work Phone: [facility] HospitalNwvhzdtjro13-79-5986 15:18-0419WzW3% (BldA) [Mass fraction]92 %Sydniearianna Guerrero DO Work Phone: [facility] HospitalJvcmymbfqf39-53-9956 15:18-0400Systolic blood mm[Hg]Sydnie Guerrero DO Work Phone: [facility] HospitalSuntlmismq97-59-4664 11:05-0400Body glaana092.3 cmMyriam Peacock MD Work Phone: [phone] [place], [place] 3846305-08-2025 11:05-0400Body mass index (BMI) [Ratio]36.77 kg/r3BzzszMyriam Peacock MD Work Phone: [phone] [place], [place] 384[address]305-08-2025 11:05-0400Body ylbhwe034.95 kgMyriam Peacock MD Work Phone: [facility]05-08-2025 11:05-0400Diastolic blood erxdbsox55 mm[Hg]Myriam Peacock MD Work Phone: [phone] [place], [place] 384[address]305-08-2025 11:05-0400Heart rate 96 /minMyriam Peacock MD Work Phone: [facility] Hpnkqy59-09-0056 11:05-2436FcZ9% (BldA) [Mass fraction]97 %Myriam Peacock MD Work Phone: [facility] Cpbchq24-84-5776 11:05-0400Systolic blood qtjxmgve828 mm[Hg]Myriam Peacock MD Work Phone: [facility] Pzfrrt33-86-1043 13:09-0400Body .3 cmJoabby Steiner DO Work Phone: [facility] Yotjpf97-83-8296 13:09-0400Body mass index (BMI) [Ratio]35.21 kg/m2Rajni Steiner DO Work Phone: [facility] Kemmmg80-18-8568 13:09-0400Body zojinyhnnnk76.1 [degF]Rajni Steiner DO Work Phone: [facility] Ozbgee01-01-9264 13:09-0400Body buecty825.14 kgJoabby Steiner DO Work Phone: [facility] Bswxgi54-96-0239 13:09-0400Diastolic blood zyykdcle51 mm[Hg]Rajni Steiner DO Work Phone: [facility] Lhnyxy03-20-6520 13:09-0400Heart rate 97 /minJoabby Steiner DO Work Phone: [facility] Nbjcfp39-29-4268 13:09-8551EoG1% (BldA) [Mass fraction]95 %Rajni Steiner DO Work Phone: [facility] Kettmr90-02-8165 13:09-0400Systolic blood wjnchvej891 mm[Hg]Rajni Steiner DO Work Phone: [facility]11-21-2024 13:00-0500Body qsaidy086.3 cmLeayvette Guerrero DO Work Phone: [facility] HospitalHdgtdjnbxl42-31-5711 13:00-0500Body mass index (BMI) [Ratio]33.82 kg/y6SailfmSydnie Guerrero DO Work Phone: [facility] HospitalIhauffagnc37-07-6144 13:00-0500Body .87 kgLejim Guerrero DO Work Phone: [facility] HospitalPogrhgxugn85-80-3351 13:00-0500Diastolic blood iyxlrjda40 mm[Hg]ySdnie Guerrero DO Work Phone: [facility] HospitalIjsozoexdv70-06-1618 13:00-0500Heart wouk024 /min Sydnie Guerrero DO Work Phone: [facility] HospitalVgkbtnfjhg68-74-1673 13:00-6099RsW9% (BldA) [Mass fraction]89 %Sydnie Guerrero DO Work Phone: [facility] HospitalPondmxoiwz41-65-4598 13:00-0500Systolic blood ukplzzcp336 mm[Hg]Sydnie Guerrero DO Work Phone: [place] [address]Gnslhbyqoy80-72-3516 13:10-0500Body etqfza417.3 cmJoabby Steiner DO Work Phone: [facility]11-11-2024 13:10-0500Body mass index (BMI) [Ratio]32.93 kg/m2Rajni Steiner DO Work Phone: [facility]11-11-2024 13:10-0500Body ymavordmztz83.4 [degF]Rajni Perrys DO Work Phone: [facility]11-11-2024 13:10-0500Body .15 kgRajni Perrys DO Work Phone: [facility]11-11-2024 13:10-0500Diastolic blood uiyzzxlj64 mm[Hg]Rajni Steiner DO Work Phone: [facility]11-11-2024 13:10-0500Heart rate 87 /minJoabby Perrys DO Work Phone: [facility] Glchkk64-55-4315 13:10-6036PpJ2% (BldA) [Mass fraction]93 %Rajni Steiner DO Work Phone: [facility] Zygzua14-74-9669 13:10-0500Systolic blood lmgphycf586 mm[Hg]Rajni Steiner DO Work Phone: [facility] Vcsgol67-80-8205 10:36-0400Body dkyqbh333.3 Aneta Giles MD Work Phone: [phone] [employer] Fyiztn32-07-9382 10:36-0400Body mass index (BMI) [Ratio]33.7 kg/s5SkxzsmSaqib Giles MD Work Phone: [phone] [facility] Mofpga89-72-9204 10:36-0400Body .51 kgThlashell Giles MD Work Phone: [phone] [employer] Wdboyx37-11-8508 10:36-0400Diastolic blood qoywohiv24 mm[Hg]Saqib Giles MD Work Phone: [phone] [address]In[facility] [address] Ixbrhd85-95-8472 10:36-0400Heart rate 71 /minThlashell Giles MD Work Phone: [phone] [facility] Cgrfkg99-29-7203 10:36-3425ZfO2% (BldA) [Mass fraction]93 %Saqib Giles MD Work Phone: [phone] [employer] Vnncxj56-34-4132 10:36-0400Systolic blood kupcthxa095 mm[Hg]Saqib Giles MD Work Phone: [phone] [address] StreetIn[address] Tr[address] Cpailc83-68-1183 13:02-0400Body gnwunl157.3 cmRajni Steiner Work Phone: [facility] Mpqmly14-81-1015 13:02-0400Body mass index (BMI) [Ratio]33.4 kg/m2Rajni Steiner DO Work Phone: [facility] [id number] 13:02-0400Body rgrqlzsaafh39.01 [degF]Rajni Steiner DO Work Phone: [facility]09-09-2024 13:02-0400Body .6 kgJoabby Steiner DO Work Phone: [facility]09-09-2024 13:02-0400Diastolic blood onyajcai86 mm[Hg]Rajni Steiner DO Work Phone: [facility]09-09-2024 13:02-0400Heart rate 90 /minJoabby Steiner DO Work Phone: [facility]09-09-2024 13:020528KaK4% (BldA) [Mass fraction]93 %Rajni Steiner DO Work Phone: [facility]09-09-2024 13:02-040Systolic blood zgeikgmb189 mm[Hg]Rajni Steiner DO Work Phone: [facility]08-13-2024 19:58-0400Body vomldh621.[address]08-13-2024 19:58-0400Body mass index (BMI) [Ratio]35.15 kg/m2Pmh [address] [place], [place] 5207908-13-2024 19:58-0400Body lpzvwu164.[address] [place], [place] 5207907-08-2024 15:46-0400Diastolic blood pzqfaqxx06 mm[Hg]Rajni Steiner DO Work Phone: [facility] [facility] 15:46-0400Systolic blood kcimygic845 mm[Hg]Rajni Steiner DO Work Phone: [facility]07-08-2024 15:44-0400Body dbfrme052.3 cmJoabby Steiner DO Work Phone: [facility]07-08-2024 15:44-0400Body mass index (BMI) [Ratio]35.74 kg/m2Joabby Steiner DO Work Phone: [facility] [employer] Bztiha67-86-5339 15:44-0400Body rickakjvnzj35.9 [degF]Rajni Steiner DO Work Phone: [facility]07-08-2024 15:44-0400Body kbtiuv338.77 kgRajni Steiner DO Work Phone: [facility] [employer] Zvijzt69-87-5447 15:44-0400Heart rate 83 /minRajni Steiner DO Work Phone: [facility]07-08-2024 15:44-6598OwC7% (BldA) [Mass fraction]96 %Rajni Steiner DO Work Phone: [facility]06-05-2024 13:38-0400Body biltbw283.3 cmRajni Steiner DO Work Phone: [facility]06-05-2024 13:38-0400Body mass index (BMI) [Ratio]35.99 kg/m2Rajni Steiner DO Work Phone: [facility] [employer] Xtacps25-99-9617 13:38-0400Body agsjjusmhti70.8 [degF]Rajni Steiner DO Work Phone: [facility]06-05-2024 13:38-0400Body zntmhi629.54 kgRajni Steiner DO Work Phone: [facility]06-05-2024 13:38-0400Diastolic blood tphotocu03 mm[Hg]Rajni Steiner DO Work Phone: [facility] [employer] Vstqrh38-44-7684 13:38-0400Heart rate 82 /minRajni Steiner DO Work Phone: [facility]06-05-2024 13:38-0400 Respiratory rate18 /Frances Steiner DO Work Phone: [facility]06-05-2024 13:38-1376TeP3% (BldA) [Mass fraction]93 %Rajni Steiner DO Work Phone: [facility]06-05-2024 13:38-0400Systolic blood czibmeye959 mm[Hg]Rajni Steiner DO Work Phone: [facility]05-30-2024 11:15-0400Diastolic blood xzehtgrb10 mm[Hg]Kacey Stephens CLIENT PORTF[employer]IO MANAGER[employer] ADMINISTRATOR Work Phone: [facility]05-30-2024 11:15-2445HzC2% (BldA) [Mass fraction]91 %Kacey Stephens CLIENT PORTFOLIO MANAGER-[employer] ADMINISTRATOR Work Phone: [facility]05-30-2024 11:15-0400Systolic blood mm[Hg]Kacey Stephens CLIENT PORTFOLIO MANAGER-[employer] ADMINISTRATOR Work Phone: [facility]05-30-2024 11:11-0400Body twnaho781.3 cmKacey Stephens CLIENT PORTFOLIO MANAGER-[employer] ADMINISTRATOR Work Phone: [facility]05-30-2024 11:11-0400Body mass index (BMI) [Ratio]36.56 kg/m2Kacey Stephens CLIENT PORTFOLIO MANAGER-[employer] ADMINISTRATOR Work Phone: [facility]05-30-2024 11:11-0400Body duzmokghafa68.7 [degF]Kacey Stephens CLIENT PORTFOLIO MANAGER-[employer] ADMINISTRATOR Work Phone: [facility]05-30-2024 11:11-0400Body orfcqf431.31 kgKacey Stephens CLIENT PORTFOLIO MANAGER-[employer] ADMINISTRATOR Work Phone: [facility]05-30-2024 11:11-0400Heart rate 70 /minKacey Stephens CLIENT PORTFOLIO MANAGER-[employer] ADMINISTRATOR Work Phone: [facility]05-30-2024 11:11-0400 Respiratory rate24 /minKacey Stephens CLIENT PORTFOLIO MANAGER-[employer] ADMINISTRATOR Work Phone: [facility]05-15-2024 13:36-0400Diastolic blood jzcocpgb30 mm[Hg]Rajni Steiner DO Work Phone: [facility]05-15-2024 13:36-0400Systolic blood mm[Hg]Rajni Steiner DO Work Phone: [facility]05-15-2024 13:04-0400Body zvclmu382.3 cmJoabby Steiner DO Work Phone: [facility]05-15-2024 13:04-0400Body mass index (BMI) [Ratio]37.07 kg/m2Joabby Steiner DO Work Phone: [facility]05-15-2024 13:04-0400Body mitnckueijd23.59 [degF]Rajni Steiner DO Work Phone: [facility]05-15-2024 13:04-0400Body velthg210.85 kgJoabby Steiner DO Work Phone: [facility]05-15-2024 13:04-0400Heart rate 88 /minJoabby Steiner DO Work Phone: [facility]05-15-2024 13:04-9770RgY0% (BldA) [Mass fraction]93 %Rajni Steiner DO Work Phone: [facility]04-16-2024 20:38-0400Body iyzlyd632.[address]04-16-2024 20:38-0400Body mass index (BMI) [Ratio]38.1 kg/m[address]04-16-2024 20:38-0400Body yxhkkn950.[address] [place], [place] [address]04-15-2024 13:53-0400Diastolic blood mm[Hg]Rajni Steiner DO Work Phone: [facility]04-15-2024 13:53-0400Systolic blood srkowqvv046 mm[Hg]Rajni Steiner DO Work Phone: [facility] Ytfhiz20-00-1467 13:05-0400Body uhozic383.3 cmRajni Steiner DO Work Phone: [facility] Yjfwmx31-91-9701 13:05-0400Body mass index (BMI) [Ratio]38.03 kg/m2Rajni Steiner DO Work Phone: [facility] Akbvdv39-76-8099 13:05-0400Body wpukqpzreup79.6 [degF]Rajni Steiner DO Work Phone: [facility] Hantbt85-49-0819 13:05-0400Body utqhta624.8 kgRajni Steiner DO Work Phone: [facility] Uchwls84-66-7135 13:05-0400Heart rate 76 /minRajni Steiner DO Work Phone: [facility] [employer] Dpyjsh96-48-5252 13:05-0400 Respiratory rate18 /minRajni Steiner DO Work Phone: [facility] Mzaxbr15-85-8616 13:05-9640EyQ9% (BldA) [Mass fraction]93 %Rajni Steiner DO Work Phone: [facility] Etwhxo61-56-4907 11:00-0400Body qhkubokenqv84.01 [degF]Rajni Steiner DO Work Phone: [facility] Imjdjh92-02-9086 11:00-0400Diastolic blood mm[Hg]Rajni Steiner DO Work Phone: [facility] Qybybm40-17-9391 11:00-0400Heart rate 85 /minRajni Steiner DO Work Phone: [facility] Udrxbt31-20-9456 11:00-0400 Respiratory rate22 /minRajni Perrys DO Work Phone: [facility] Ltmjwa03-40-5817 11:00-0466YwK8% (BldA) [Mass fraction]93 %Rajni Steiner DO Work Phone: [facility]04-01-2024 11:00-0400Systolic blood bhxwykkp998 mm[Hg]Rajni Steiner DO Work Phone: [facility]04-01-2024 05:57-0400Body mass index (BMI) [Ratio]33.77 kg/m2Rajni Steiner DO Work Phone: [facility] Mquwsa31-61-9223 05:57-0400Body .74 kgRajni Steiner DO Work Phone: [facility] Vwvzkk43-68-3165 19:05-0400Body rgavhd725.3 cmRajni Steiner DO Work Phone: [facility]03-30-2024 17:52-0400Body qhokdpskvui40.6 [degF]Rajni Steiner DO Work Phone: [facility] Hrxnxf69-68-4304 17:52-1531TcH6% (BldA) [Mass fraction]95 %Rajni Steiner DO Work Phone: [facility] Dinixs86-70-8718 14:20-0500Body ryyiol590.3 cmRajni Steiner DO Work Phone: [facility]03-06-2024 14:20-0500Body mass index (BMI) [Ratio]38.42 kg/m2Rajni Steiner DO Work Phone: [facility]03-06-2024 14:20-0500Body jcutonrkndo38.1 [degF]Rajni Steiner DO Work Phone: [facility]03-06-2024 14:20-0500Body dhaejw742.03 kgRajni Steiner DO Work Phone: [facility]03-06-2024 14:20-0500Diastolic blood szpjhxko17 mm[Hg]Rajni Yuhas DO Work Phone: [facility] Bpiqog62-07-1659 14:20-0500Heart rate 70 /minJoabby Steiner DO Work Phone: [facility] [employer] Dwpenc98-84-7641 14:20-9904PdJ6% (BldA) [Mass fraction]96 %Rajni Steiner DO Work Phone: [facility] [employer] Lihrwb72-07-3227 14:20-0500Systolic blood mrdywvfl089 mm[Hg]Rajni Steiner DO Work Phone: [facility] [employer] Gyoxrw02-38-1535 10:18-0500Body mplysi053.3 cmSye Meadows DO Work Phone: [facility] [employer] Wmplzm13-02-7400 10:18-0500Body mass index (BMI) [Ratio]37.08 kg/m7YfwqikGrace Meadows DO Work Phone: [facility] [employer] Hylrjw64-11-1642 10:18-0500Body mcwevf275.9 kgGrace Meadows DO Work Phone: [facility] [employer] Nquzbz02-15-2938 10:18-0500Diastolic blood lfdmdvyc50 mm[Hg]Grace Meadows DO Work Phone: [facility] [employer] Xdvtoa41-94-8073 10:18-0500Heart rate 75 /minSye Meadows DO Work Phone: [facility] [employer] Isryjz18-09-3689 10:18-3903AxL8% (BldA) [Mass fraction]96 %Grace Meadows DO Work Phone: [facility] [employer] Dayhcx10-99-8091 10:18-0500Systolic blood mm[Hg]Grace Meadows DO Work Phone: [facility]02-05-2024 13:59-0500Body hdnayi830.3 cmRajni Steiner DO Work Phone: [facility] [employer] Yooasn31-58-8877 13:59-0500Body mass index (BMI) [Ratio]38.59 kg/m2Rajni Steiner DO Work Phone: [facility] [employer] Wuftej78-36-2595 13:59-0500Body oicwrupzdys55.39 [degF]Rajni Steiner DO Work Phone: [facility] [employer] Ergzph80-39-3535 13:59-0500Body oglaep837.53 kgRajni Steiner DO Work Phone: [facility]02-05-2024 13:59-0500Diastolic blood fsspkocp42 mm[Hg]Rajni Steiner DO Work Phone: [facility]02-05-2024 13:59-6679PbR2% (BldA) [Mass fraction]95 %Rajni Steiner DO Work Phone: [facility]02-05-2024 13:59-0500Systolic blood bxkxumsh922 mm[Hg]Rajni Steiner DO Work Phone: [facility]12-28-2023 07:01-7380ZxT0% (BldA) [Mass fraction]95 %WILBER Alvarado [facility] CenterComment on above: Performed By: #### ABG ####[facility] ([id number])[address] [place] [address] [id number] 07:43-2563SnD3% (BldA) [Mass fraction]93 %WILBER Caalca [facility] HospitalComment on above:Performed By: #### ABG #### [facility] ([id number]) [address] [place], [place] [id number] 10:09-8486AyS4% (BldA) [Mass fraction]93 %WILBER FRASER [facility] CenterComment on above:Performed By: #### CMP, 68136-0, 38251-9, CBCA #### [facility] ([id number]) [address] [place], [place] [id number] 07:52-7597YwJ6% (BldA) [Mass fraction]93 %WILBER Cavazos [facility] HospitalComment on above:Performed By: #### CMP, 06364-4, 91851-3, CBCA #### [facility] ([id number]) [address] [facility] [place], [place] [id number] 06:48-3381SfN8% (BldA) [Mass fraction]94 %WILBER Raineycrossbridge behavioral healthmindi [facility] HospitalComment on above:Performed By: #### CMP, 96131-2, 96759-2, CBCA #### [facility] ([id number]) [address] [facility] [place], [place] 0041990-52-4325 07:26-9270BeA0% (BldA) [Mass fraction]95 %WILBER Raineycrossbridge behavioral healthmindi [facility] HospitalComment on above:Performed By: #### ABG #### [facility] ([id number]) [address] [place], [place] 2141394-62-1171 08:40-0400Body heightDahernan Carson Other [employer] Other Phone: [phone] 08:40-0400Body mass index (BMI) [Ratio] 38.83 kg/m2John Carson Other [employer] Other Phone: [phone] 08:40-0400Body hvdfba567.3 kgJohn Carson Other [employer] Other 08-17-2023 08:40-0400Diastolic blood reamoidu51 mm[Hg] John Carson Other [employer] Other 08-17-2023 08:40-0400Systolic blood zsuwkpvi872 mm[Hg] John Carson Other [employer] Other Encounters Encounter DateEncounter TypeCare ProviderFacilityStart: 02-24-2025 End: 26-77-6437NnuxegRmvt L Yuhas DO Work Phone: [facility] - [facility] MedicineComment on above:Gastro-esophageal reflux disease without esophagitisMed RefillStart: 02-22-2025 End: 68-33-1365Punhpzojl department patient visitRAJNI Cardoso [facility]: 02-20-2025 End: 85-59-4250Bnfpem-up encounterKacey Sims [facility] - Heart Failure ClinicComment on above:Basic Metabolic PanelStart: 08-45-7768kwxbwvhzrrQQGC M [facility]: 02-13-2025 End: 15-84-1318hurlfjtjeqNnkhryu Vytheather Giedraitis MDFacility:PM Yoly Start: 02-09-2025 End: 08-29-7165Dxzltmhfn department patient visitJOABBY Cardoso [facility] Hospitaltart: 02-08-2025 End: 59-12-7185Gufubvmcq encounterSydnie Guerrero DO Work Phone: [facility] Hospital[facility]: 02-06-2025 End: 94-29-4579Eewtcaitc encounterTosin Reyes [facility] Physicians Internal Medicine [facility] Ritetart: 02-06-2025 End: 72-59-1692fblsiwuhukAXKR [facility] Hospitaltart: 02-06-2025 End: 50-62-3909Lduomx outpatient visit 25 minutesRisa Summers MD Work Phone: [facility] - Heart Failure ClinicComment on above:Chronic diastolic heart failure (CMS-HCC) (Primary Dx); Pulmonary hypertension (CMS-HCC); Nonrheumatic tricuspid valve regurgitationStart: 02-03-2025 End: 36-60-2722Iittdtius encounterAntoinette Sanchez CNAProMedica Heart Failure ClinicStart: 01-25-2025 End: 39-99-1049Jhtzldzyv encounterLeannhernando Magnolia Guerrero DO Work Phone: [facility] MedicineStart: 01-04-2025 End: 93-12-4544Fdmkmeichs and management of inpatientRAJNI PERRYElyria Memorial Hospital HospitalStart: 01-03-2025 End: 94-09-4949gwkhwnlaquJtn Pat Phone Call Provider [address] [place] [address] AdmitStart: 01-03-2025 End: 29-10-3624Eyyyhudhx encounterScarletthernando Merida Cesar DO Work Phone: [facility] MedicineStart: 01-03-2025 End: 19-30-4850tpscgztvqyDQCB L [facility] Hospitaltart: 12-28-2024 End: 48-67-9724ZhophfCdkr L Obdulia DO Work Phone: [facility] Internal Medicine - Family MedicineComment on above:Atherosclerotic heart disease of [place] coronary artery with other forms of angina pectorisBasic Metabolic PanelStart: 12-27-[address] [facility] Hospitaltart: 12-21-2024 End: 95-12-4848bztskxfykaAXMPJJ A [facility]ETTPeoples Hospital HospitalStart: 12-19-2024 End: 85-25-2424bybolvzrytWvr Pat Phone Call Provider [address] [place] [address] AdmitStart: 12-19-2024 End: 70-69-0603ilqcpqxxrbFIHW L [facility] HospitalStart: 12-19-2024 End: 63-38-8497fgtmurxyykLufyplz Saadia Root MDFacility:PM [place] Start: 12-15-2024 End: 64-72-9494Bonslg-up encounterRajni Steiner DO Work Phone: [facility] Internal Medicine - Family MedicineComment on above:Basic Metabolic PanelStart: 12-15-2024 End: 08-29-6829Fvzgghyklozg care manage srvc 14 day dischargeRajni Steiner DO Work Phone: [facility] Internal Medicine - Family MedicineComment on above:Microcytic anemia (Primary Dx); Gastro-esophageal reflux disease without esophagitis; Stage 3a chronic kidney disease ([facility]-HCC); Spinal stenosis of lumbar region with neurogenic claudicationStart: 12-15-2024 End: 45-33-8108vxwjxlewsaKDLL L [facility] PPGStart: 96-56-4012uakuxiedyjUJVU L [facility] HospitalStart: 12-12-2024 End: 14-21-7362Bvysch-up encounterJfk Medical Centerlivia LeviMercy Health [facility] Heart Failure ClinicComment on above:Basic Metabolic PanelStart: 21-79-6594zbjvammeouOTIZCO A PRUIETTPeoples Hospital HospitalStart: 12-08-2024 End: 12-47-9320Temrhxgfe encounterLiz Norman [facility] Physicians Internal Medicine - Family MedicineComment on above:Transition Of CareStart: 12-04-2024 End: 48-25-4510Ypevxxpsih and management of inpatientRAJNI Cardoso [facility] HospitalStart: 12-03-2024 End: 06-85-5058Prozbmgrje and management of inpatientRAJNI PERRYElyria Memorial Hospital HospitalStart: 11-30-2024 End: 74-59-2678Besfft-up encounterJfk Medical Centerlivia [facility] Heart Failure ClinicComment on above:Basic Metabolic PanelStart: 11-29-2024 End: 76-12-8518Fikmqv-up encounterRajni Steiner DO Work Phone: [facility] Internal Medicine - Family MedicineComment on above:X-ray knee right 3 viewsStart: 11-09-3130ipsbqmyicnlionel TorrezWright-Pat[facility] Center HospitalStart: 11-28-2024 End: 18-71-6719kqcskduigxTXKO L [facility] Hospitaltart: 11-28-2024 End: 72-18-1535Xifjrm outpatient visit 25 minutesOdessa Cook CLIENT PORTFOLIO MANAGER-MOLECULAR BIOLOGIST Work Phone: [facility] - Heart Failure ClinicComment on above:Chronic heart failure with preserved ejection fraction ([facility]-HCC) (Primary Dx); Pulmonary hypertension ([facility]); Nonrheumatic tricuspid valve regurgitation; Essential hypertension; Atherosclerosis of [place] coronary artery of [place] heart without angina pectoris; History of four vessel coronary artery bypass graft; NSTEMI (non-ST elevated myocardial infarction) ([facility])Start: 11-28-2024 End: 87-16-1329zgqqpaflslZGGNLN A PRUIETTLancaster Municipal Hospitaltart: 11-23-2024 End: 88-38-5196JmqklpNknz L Yuhas DO Work Phone: [facility] Internal Medicine - Family MedicineComment on above:Peripheral polyneuropathyStart: 11-14-2024 End: 83-69-0878mlfgvpotjqZntgutz Vytautas Giedraitis MDFacility:PM [place] Start: 11-07-2024 End: 17-53-5533Xvjnkv outpatient visit 25 minutesRajni Perrys DO Work Phone: [facility] Internal Medicine - Family MedicineComment on above:Hiatal hernia with GERD (Primary Dx); Stage 3a chronic kidney disease ([facility]); Patellar tendinitis of right knee; Gastro-esophageal reflux disease without esophagitis; Venous insufficiency of both lower extremitiesStart: 11-07-2024 End: 80-58-2107nyhzicvhdfODYB [facility] Ambulatory PPGStart: 11-02-2024 End: 34-24-2278Fycplt-up encounterRajni Steiner DO Work Phone: [facility] Internal Medicine - Family MedicineComment on above:Fluoroscopy upper GI with esophagusStart: 11-02-2024 End: 69-56-3861hszcvnqbgdFLQJ [facility] Centertart: 10-27-2024 End: 52-98-1711Ogyzfk outpatient visit 25 minutesRajni Perrys DO Work Phone: [facility] Medicine - Family MedicineComment on above:Type 2 diabetes mellitus with stage 3a chronic kidney disease, without long-term current use of insulin ([facility]) (Primary Dx); Venous insufficiency of both lower extremities; Chronic heart failure with preserved ejection fraction ([facility]-HCC); Stage 3a chronic kidney disease ([facility]); Nausea and vomiting, unspecified vomiting type; Arthritis of left sacroiliac jointStart: 10-27-2024 End: 61-94-0841tnfruywumdDRJMAdirondack Medical Center Ambulatory PPGStart: 10-13-2024 End: 50-83-6425JqqvodYoex L Yuhaumair DO Work Phone: [facility] - [facility] HospitalComment on above:Peripheral polyneuropathyStart: 60-68-9514ldvhyneoykProvidence Mission Hospital Laguna Beachtart: 10-07-2024 End: 23-74-2045gxoupbxugoGTPPArch[facility] Ambulatory PPGStart: 10-07-2024 End: 13-36-7258Qwlpla outpatient visit 25 minutesRajni Steiner DO Work Phone: [facility] - [facility] HospitalComment on above:Cervicogenic headache (Primary Dx); Orthostatic hypotension; Chronic heart failure with preserved ejection fraction ([facility]); Fibromyalgia syndromeStart: 09-21-2024 End: 44-23-1943Skevoo outpatient visit 15 minutesSydnie Guerrero DO Work Phone: n[facility] FNR PULMComment on above:Chronic obstructive pulmonary disease, unspecified COPD type ([facility]/HCC) (Primary Dx); Chronic respiratory failure with hypoxia and hypercapnia ([facility]); BONY (obstructive sleep apnea)Start: 09-21-2024 End: 64-63-4113kyrqmlslrwTZWINE K STRACKNot AvailableStart: 09-21-2024 End: 32-48-4884Swhsun flowsElba Geurrero DO Work Phone: [facility] FNR PULMStart: 09-21-2024 End: 89-58-6592Dccnly flowsElba Guerrero DO Work Phone: [facility] FNR PULMStart: 09-04-2024 End: 69-25-7146ZqwgjfKcaf L Yuhas DO Work Phone: [facility] Internal Medicine - Family MedicineComment on above:Peripheral polyneuropathyStart: 09-01-2024 End: 77-90-7459Qqblsv outpatient visit 25 Jayson Peacock MD Work Phone: [facility] Physicians CardiologyComment on above: Chronic heart failure with preserved ejection fraction (CMS-HCC) (Primary Dx); Atherosclerotic heart disease of [place] coronary artery with other forms of angina pectoris; Hx of CABGStart: 09-01-2024 End: 28-64-4095qdovpheggiHABIUUSC [facility] Hospitaltart: 07-15-2024 End: 88-48-6659LzmkhqBnvbSaint Francis Medical Center Physicians CardiologyComment on above:Med RefillStart: 07-15-2024 End: 83-64-2868NcyqjdHimy L Yuhas DO Work Phone: [facility] Internal Medicine - Family MedicineComment on above:Gastro-esophageal reflux disease without esophagitis Start: 07-07-2024 End: 69-25-6760afmfkowqjpNFGQOhioHealth Hardin Memorial Hospitaltart: 07-07-2024 End: 23-24-0305uuopmwufywKQKKCHI St[facility] HospitalStart: 07-07-2024 End: 85-14-3288Fqzcow outpatient visit 25 Spring Steiner DO Work Phone: [facility] Internal Medicine - Family MedicineComment on above:IFG (impaired fasting glucose) (Primary Dx); Chronic obstructive pulmonary disease, unspecified COPD type (CMS-HCC); Stage 3a chronic kidney disease (CMS-HCC); Chronic respiratory failure with hypoxia and hypercapnia (CMS-HCC); Chronic heart failure with preserved ejection fraction (CMS-HCC); Bipolar 2 disorder, major depressive episode ([facility]-HCC); BMI 40.0-44.9, adult ([facility]-HCC); Atherosclerotic heart disease of [place] coronary artery with other forms of angina pectoris ([facility]); B12 deficiency; Peripheral polyneuropathy; Arthritis of left sacroiliac joint ([facility]-H[facility])Start: 05-14-2024 End: 43-42-2197VwzwufPmyp L Yusunshine DO Work Phone: [facility] Internal Medicine - Family MedicineComment on above:Peripheral polyneuropathyStart: 04-25-2024 End: 76-91-2068UtxzeqNntqws [facility] Physicians CardiologyComment on above:Med RefillStart: 04-07-2024 End: 71-19-2172LbrzkeHghwiyva Noah CLIENT PORTFOLIO MANAGER-MOLECULAR BIOLOGIST Work Phone: [facility] Physicians CardiologyComment on above:Med RefillStart: 03-29-2024 End: 53-55-5618fhpcccpqruKYYIAdirondack Medical Center Ambulatory PPGStart: 03-29-2024 End: 31-51-3116Wlzewq outpatient visit 25 minutesRajni Steiner DO Work Phone: [facility] Internal Medicine - Family MedicineComment on above:Contusion of lower leg, unspecified laterality, initial encounter (Primary Dx)Start: 03-29-2024 End: 31-69-6626Mtpiiciqg encounterMisty Preston [facility] Internal Medicine - Family MedicineStart: 03-21-2024 End: 34-90-2258ihlujabmlpMinthqw Saadia Root MDFacility:PM [place] Start: 03-17-2024 End: 43-98-9012Bwfcyu LytroElba Guerrero DO Work Phone: noms PULMStart: 03-17-2024 End: 30-64-3834Dsohbp LytroElba Guerrero DO Work Phone: noms PULMStart: 03-17-2024 End: 52-16-7240Vcpzek outpatient new 45 minutesSydnie Guerrero DO Work Phone: noms PULMComment on above:Chronic obstructive pulmonary disease, unspecified COPD type (CMS/HCC) (Primary Dx); Chronic respiratory failure with hypoxia and hypercapnia (CMS/HCC); Cigarette smokerStart: 03-17-2024 End: 82-66-6972wmymzmleaaJXPAKJVicente Carvajal AvailableStart: 03-09-2024 End: 18-04-6942HxuycyYkcv L Vickyumair DO Work Phone: [facility] Internal Medicine - Family MedicineComment on above:Gastro-esophageal reflux disease without esophagitis Start: 03-07-2024 End: 87-93-5068meivcxtjrrILLJMercy Health Allen Hospitaltart: 03-07-2024 End: 58-47-6529Lkrixm outpatient visit 25 minutesRajni Steiner DO Work Phone: [facility] - Family MedicineComment on above:IFG (impaired fasting glucose) (Primary Dx); Peripheral polyneuropathy; Stage 3a chronic kidney disease (CMS-HCC); Chronic heart failure with preserved ejection fraction (CMS-HCC); Atherosclerotic heart disease of [place] coronary artery with other forms of angina pectoris ([facility]-HCC)Start: 03-07-2024 End: 19-48-4772fovvxdszpgUCAGAspirus [facility]ford Hospital PPGStart: 02-29-2024 End: 73-24-3018efalixihxjVjynmmiSapna Root MDFacility:PM [place] Start: 02-22-2024 End: 29-03-0366Mzypghauw encounterMisty Preston [facility]Pro[facility] - Family Community Hospitaltart: 02-22-2024 End: 92-44-2222iamubwrbjgXblzmcoSapna Root MDFacility:PM [place] Start: 02-19-2024 End: 95-00-2502Aaglsg outpatient visit 15 minutesAlex Amos MD Work Phone: [facility] CardiologyComment on above: Atherosclerotic heart disease of [place] coronary artery with other forms of angina pectoris (CMS-HCC) (Primary Dx)Start: 02-18-2024 End: 86-32-9622Cyfkvqdwp encounterJennifer Lachner [facility]ITALPro[facility]icians CardiologyStart: 02-09-2024 End: 60-69-3115Awxkpb flowsLino Huertas DO Work Phone: [facility] ORTHOPAEDICSStart: 02-09-2024 End: 91-34-1902Qpfdjq flowsLino Huertas DO Work Phone: [facility] ORTHOPAEDICSStart: 02-09-2024 End: 46-88-5803nxyqshjsarKVAED A ALEKSANDARNot AvailableStart: 02-09-2024 End: 44-43-9896Hzcrea outpatient visit 10 minutesEusebia Huertas DO Work Phone: [facility] ORTHOPAEDICSComment on above:Trigger point of left side of body (Primary Dx); Arthritis of left sacroiliac joint (CMS/HCC); Lumbosacral pain; Pain of left sacroiliac jointStart: 02-03-2024 End: 70-77-3895Bupqtnodu encounterFior Scott [facility]ITALPro[facility] - Family MedicineStart: 02-01-2024 End: 04-89-2105Iyjcklaqu encounterSye Meadows DO Work Phone: [facility] Pulmonary/Sleep MedicineStart: 01-26-2024 End: 72-71-2469Ymfonc outpatient visit 15 minutesEusebia Huertas DO Work Phone: [facility] ORTHOPAEDICSComment on above:Left shoulder pain, unspecified chronicity (Primary Dx); Arthritis of left shoulder regionStart: 01-26-2024 End: 77-33-5117ickhicxdboVBQDI A HUDLITAKARLANot AvailableStart: 01-21-2024 End: 23-05-6055Utbwlt Rajinder Buchanan APRN-MOLECULAR BIOLOGIST Work Phone: [facility] Hospitalca Heart Failure ClinicComment on above:Chronic heart failure with preserved ejection fraction (CMS-HCC)Start: 01-20-2024 End: 74-92-5182KfurunSkufx Bruce MERCADOBayne Jones Army Community Hospitalgenet Physicians CardiologyComment on above:Med RefillStart: 01-20-2024 End: 13-31-2821EdmfiyHbnx L Yuhas DO Work Phone: [facility] Internal Medicine - Family MedicineComment on above:Spinal stenosis of lumbar region with neurogenic claudicationMed Change RequestStart: 01-19-2024 End: 68-43-1663Uphwwmhiz encounterAnabela Cueva [facility] Physicians Cardiology Start: 01-18-2024 End: 22-28-0411ZvbydsTjoyxv [facility] Physicians CardiologyComment on above:Med RefillStart: 18-59-7581vcrninsqtbAGAMMB [facility] Ambulatory PPGStart: 01-12-2024 End: 27-90-2210Cvtpzq flowsLino Huertas DO Work Phone: [facility] ORTHOPAEDICSStart: 01-12-2024 End: 06-87-0459Dmzwad Yelena Huertas DO Work Phone: [facility] ORTHOPAEDICSStart: 01-12-2024 End: 48-14-3667ygsqvxesqtQADXR A HUDDLESTONNot AvailableStart: 01-12-2024 End: 38-38-0502Yvwbmz outpatient visit 10 minutesEusebia Huertas DO Work Phone: [facility] ORTHOPAEDICSComment on above:Trigger point of left side of body (Primary Dx)Start: 01-07-2024 End: 03-22-3374Lejrvaxjf encounterSofya Coe [facility] Internal Medicine - Family MedicineStart: 01-04-2024 End: 34-85-2189unhvcehjjqYZIK L YUHAAndi Mobile HospitalStart: 01-04-2024 End: 00-38-2306Cnyqsf outpatient visit 25 minutesRajni Steiner DO Work Phone: [facility] Internal Medicine - Family MedicineComment on above:Chronic respiratory failure with hypoxia and hypercapnia (CMS-HCC) (Primary Dx); BONY treated with BiPAP; Spinal stenosis of lumbar region with neurogenic claudication; Chronic heart failure with preserved ejection fraction (CMS-HCC)Start: 01-04-2024 End: 26-19-0479xoztlnxcchPWJFArchbold - [facility] Hospital Ambulatory PPGStart: 01-01-2024 End: 24-75-3387EazooyJmiv L Yuhas DO Work Phone: [facility] HospitalComment on above:Spinal stenosis of lumbar region with neurogenic claudicationStart: 12-30-2023 End: 54-45-9153Mmupgdwon encounterMisty Preston ELIANProMedica [facility] Internal Medicine [facility] MedicineStart: 12-29-2023 End: 84-19-2809Peafwq LytrooscarEnrriquecristina Mindi Aleksandar DO Work Phone: [facility] ORTHOPAEDICSStart: 12-29-2023 End: 16-84-9807Ahmgdc LytroheetEusebia Mindi Aleksandar DO Work Phone: [facility] ORTHOPAEDICSStart: 12-29-2023 End: 39-22-0468Yfgejd outpatient visit 25 minutesJacristina Mindi Aleksandar DO Work Phone: [facility] CI ORTHOPAEDICSComment on above:Trigger point of left side of body (Primary Dx); Compression fracture of T6 vertebra with routine healing, subsequent encounter; Compression fracture of T8 vertebra with routine healing, subsequent encounter; Osteoporotic compression fracture of vertebra with routine healing, subsequent encounterStart: 12-29-2023 End: 79-43-9702dcdlgfgbzlYOTUL A HUDDLESTONNot AvailableStart: 12-24-2023 End: 29-38-5227Umdjoqiou encounterMisty Preston [facility] MedicineStart: 12-17-2023 End: 92-95-1383Cpuvmqqod encounterRoxanne E LafountainProMedica Physicians Pulmonary/Sleep MedicineStart: 12-15-2023 End: 31-20-9740Rmqdjrltz encounterRoxanne E LafountainProMedica Physicians Pulmonary/Sleep MedicineStart: 12-10-2023 End: 32-09-8305Cxrwpbppo encounterKaia Jovel MD Work Phone: [facility]CA PH[facility]ICIANS PULMONARY & SLEEPStart: 12-08-2023 End: 51-38-0010Lzemldcd SupportSye Meadows DO Work Phone: [facility] - Sleep Disorders Comment on above:ArrivedStart: 11-19-2023 End: 73-90-1452Hbnghqwdo encounterTosin Reyes [facility] Physicians Internal Medicine - Family MedicineStart: 11-03-2023 End: 61-18-8176WuddpoSamt L Yuhas DO Work Phone: [facility] Internal Medicine - Family MedicineComment on above:Fibromyalgia syndromeStart: 11-02-2023 End: 66-96-6171qtshztewzsWDYP L YUHASProMedKettering Health Springfieldtart: 11-02-2023 End: 16-23-9529Ikxkcf outpatient visit 25 minutesJohn L Yuhas DO Work Phone: [facility] Internal Medicine - Family MedicineComment on above:Venous insufficiency of both lower extremities (Primary Dx); Chronic heart failure with preserved ejection fraction (CMS-HCC); Acute pulmonary embolism without acute cor pulmonale, unspecified pulmonary embolism type (CMS-HCC); B12 deficiencyStart: 10-30-2023 End: 64-43-7053EzxwwqEtqgsw R Rettig CLIENT PORTFOLIO MANAGER-MOLECULAR BIOLOGIST Work Phone: [facility] - Heart Failure ClinicComment on above:Shortness of breath; Chronic heart failure with preserved ejection fraction (CMS-HCC)Start: 10-27-2023 End: 91-78-6625ypgkhlvxibYMWPP A HUDDLESTONNot AvailableStart: 10-21-2023 End: 67-31-1598JhzphuFvbs L Yuhas DO Work Phone: [facility] Internal Medicine - Family MedicineStart: 10-07-2023 End: 52-53-8414Nnqqrubjp encounterDaisha Marquez [facility] Physicians General SurgeryStart: 10-06-2023 End: 92-80-9844DzgwdoGufy L Yuhas DO Work Phone: [facility] Internal Medicine - Family MedicineComment on above:Spinal stenosis of lumbar region with neurogenic claudication (Primary Dx)Start: 10-02-2023 End: 29-38-7728CorbcyXltqym R Rettig CLIENT PORTFOLIO MANAGER-MOLECULAR BIOLOGIST Work Phone: [facility] - Heart Failure ClinicComment on above:Chronic heart failure with preserved ejection fraction (CMS-HCC); Atherosclerosis of [place] coronary artery of [place] heart without angina pectorisStart: 10-01-2023 End: 65-58-7141BhypmlCtowt PrestonLeConte Medical Center Physicians Internal Medicine - Family MedicineComment on above:Closed wedge compression fracture of T6 vertebra with routine healingStart: 09-30-2023 End: 01-65-1573uiywebrngsNOSA L YUUniversity Hospitals TriPoint Medical Centertart: 09-30-2023 End: 70-75-2008Rhxhwn outpatient visit 25 minutesRajni Steiner DO Work Phone: [facility] Internal Medicine - Family MedicineComment on [...] claudication; Peripheral polyneuropathy; B12 deficiencyStart: 09-24-2023 End: 86-36-7599Knlzre outpatient visit 25 minutesKacey Stephens CLIENT PORTFOLIO MANAGER-[employer] ADMINISTRATOR Work Phone: [facility] Internal Medicine - Family MedicineComment on above:Flu-like symptoms (Primary Dx); Community acquired pneumonia, unspecified laterality; Chronic heart failure with preserved ejection fraction (CMS-HCC)Start: 09-22-2023 End: 43-89-6640EzgmhsLoxqb PrestonLeConte [facility] Center [facility] Internal Medicine - Family MedicineComment on above:Closed wedge compression fracture of T6 vertebra with routine healingStart: 09-10-2023 End: 72-20-3372HsiqmeHhcn L Yuhas DO Work Phone: [facility] Internal Medicine - Family MedicineComment on above:Gastro-esophageal reflux disease without esophagitis Start: 09-09-2023 End: 25-37-2873Rzqjxryjgcft care manage srvc 14 day dischargeFaithabby Steiner DO Work Phone: [facility] Internal Medicine - Family MedicineComment on above:Closed wedge compression fracture of T6 vertebra with routine healing (Primary Dx); Acute pulmonary embolism without acute cor pulmonale, unspecified pulmonary embolism type ([facility]-HCC); Spinal stenosis of lumbar region with neurogenic claudicationStart: 08-17-2023 End: 73-29-4118Trzroojrb encounterOrders Support User [facility] - Sleep DisordersComment on above: Sleep Lab (Pap Order)Start: 08-14-2023 End: 94-41-3082RfgchfLimg McVayCleveland Clinic Foundation Physicians Pulmonary/Sleep Medicine Comment on above:BONY (obstructive sleep apnea) (Primary Dx); Hypoxemia associated with sleepStart: 08-13-2023 End: 04-93-0995Ztnorwymf encounterKaia Jovel MD Work Phone: [facility]icians Pulmonary/Sleep MedicineStart: 08-11-2023 End: 13-91-3828Hlixzoez SupportSye Meadows DO Work Phone: [facility] - Sleep Disorders Comment on above:BONY treated with BiPAPStart: 08-10-2023 End: 68-49-5062Jsrjtjbqsfmy care manage srvc 14 day dischargeRajni Steiner DO Work Phone: [facility] Internal Medicine - Family MedicineComment on above:Unilateral groin pain, right (Primary Dx); Spinal stenosis of lumbar region with neurogenic claudication; Chronic respiratory failure with hypoxia and hypercapnia (CMS-HCC); Chronic heart failure with preserved ejection fraction (CMS-HCC); BONY treated with BiPAP; Bipolar disorder in partial remission, most recent episode unspecified type ([facility]-HCC)Start: 08-06-2023 End: 58-50-9954Cxtxwadul encounterSnereyda Cantor [facility] Pulmonary/Sleep MedicineStart: 79-44-5897Rkylywejh Hay Meadows DO Work Phone: [facility] Pulmonary/Sleep MedicineStart: 07-25-2023 End: 66-39-6091Htlbfhakbk and management of inpatientAshimicaela Lock MD Work Phone: [facility] - Acute Care Comment on above:Chronic respiratory failure with hypoxia and hypercapnia (CMS- HCC) (Primary Dx); COPD exacerbation (CMS-HCC); Acute respiratory failure with hypoxia and hypercapnia (CMS-HCC); HypoxiaStart: 07-01-2023 End: 09-18-0628Wiwnta outpatient visit 25 minutesJobaby Steiner DO Work Phone: [facility] Internal Medicine - Family MedicineComment on above:Fibromyalgia syndrome (Primary Dx); Stage 3a chronic kidney disease (CMS-HCC); BONY treated with BiPAP; Chronic heart failure with preserved ejection fraction (CMS-HCC); Obesity (BMI 30-39.9)Start: 97-38-5833Czaxlzuvu encounterSye Meadows DO Work Phone: [facility] - Sleep Disorders Comment on above:Sleep Lab (Split Night)Start: 06-25-2023 End: 42-03-6312Zwhjyw outpatient visit 25 vinodGrace Meadows DO Work Phone: [facility] Pulmonary/Sleep MedicineComment on above:BONY treated with BiPAP (Primary Dx); Chronic obstructive pulmonary disease, unspecified COPD type (CMS-HCC); Shortness of breath; Cigarette nicotine dependence in remissionStart: 06-01-2023 End: 51-25-5568Ouvzbqmahwdy care manage srvc 7 day dischargeJoabby Steiner DO Work Phone: [facility] Internal Medicine - Family MedicineComment on above:Chronic heart failure with preserved ejection fraction (CMS-HCC) (Primary Dx); Bipolar disorder in partial remission, most recent episode unspecified type (CMS-HCC); Atherosclerotic heart disease of [place] coronary artery with other forms of angina pectoris (CMS-HCC); BMI 40.0-44.9, adult ([facility]-HCC); BONY treated with BiPAPStart: 20-88-3086Eklcgy OnlyGrace Meadows DO Work Phone: [facility] Pulmonary/Sleep MedicineStart: 04-28-2023 End: 40-04-5533Gmhspapont and management of inpatientLAURA [facility] HospitalStart: 04-28-2023 End: 70-78-5904Xdtzahnger and management of inpatientLAURA FELKERKeenan Private Hospital HospitalStart: 04-23-2023 End: 74-13-5760Mrcpdlvlym and management of inpatientKARL S [facility] HospitalStart: 04-22-2023 End: 03-53-7355Qaaqjpylqr and management of inpatientDEAN oJse [facility] HospitalStart: 04-21-2023 End: 90-33-4861Ybvxdpkhnz and management of inpatientDEAN Jose COSTA M[facility]ADANIELSum[facility] HospitalStart: 04-20-2023 End: 33-07-2389Miltpmpbtv and management of inpatientDEAN Jose AGUEROSumma Health [facility] HospitalStart: 04-19-2023 End: 94-17-1107Pawhoxbfia and management of inpatientCHERYL Janae RANGELERSKeenan Private Hospital HospitalStart: 04-18-2023 End: 53-01-5576Tikbdvjesj and management of inpatientDEAN Jose [facility] HospitalStart: 04-17-2023 End: 39-82-5375Nlvikphcqg and management of inpatientDEAN Jose COSTA MESADANIELSumma Health [facility] HospitalStart: 04-16-2023 End: 90-87-1013Kbfgqtyipk and management of inpatientDEAN Jose COSTA MESADANIELSumma Health [facility] HospitalStart: 04-15-2023 End: 42-76-4273Uuatvxcpzh and management of inpatientDEAN Jose COSTA MESADANIELSumma Health [facility] HospitalStart: 04-15-2023 End: 50-31-4377Dkrvheoiru and management of inpatientJAMEY YSABELIZKeenan Private Hospital HospitalStart: 04-15-2023 End: 41-50-8244Xvbqurokup and management of inpatientVENU TAJ LEÓN [facility] HospitalStart: 05-03-5602Tkirle outpatient new 30 minutesDale BraunG [facility] NeurosurgeryStart: 12-11-2022 End: 60-26-6002egcxsipgbiQyepwy Andrew SteinFacility:[facility]art: 12-11-2022 End: 70-89-0421xizbzgrxvxOHJEFFERSON Fowler Work Phone: [facility] Work Phone: Start: 12-11-2022 End: 38-57-2181Usznthh encounter procedureJEFFERSON Fowler Work Phone: [facility] [place] Work Phone: Start: 01-24-2022 End: 50-86-5792bfsegymuugGtfgngsvjvh M HassettFacility:[facility]alt[facility]art: 01-07-2018 End: 52-33-7179Kyfwyyjni department patient visitRhabdulaziz Fernandez Facility:[facility] Procedures DateProcedureProcedure DetailPerforming ClinicianStart: 95-26-7848Cqkdo metabolic panel calcium totalJohn L Yuhas DO Work Phone: Start: 09-06-5615Qeacr depression screening assessment Liz Norman RNStart: 47-99-3233Hcrjnbg of coronary artery bypass grafting History of four vessel coronary artery bypass graftOdessa Cook CLIENT PORTFOLIO MANAGER-MOLECULAR BIOLOGIST Work Phone: Start: 05-63-1759Zrgxs depression screening assessment Rajni Yuhas DO Work Phone: Start: 19-98-7577Lzztketabqztr metabolic panelJohn L Yuhas DO Work Phone: Start: 94-97-8777Jofew depression screening assessment Rajni Yuhas DO Work Phone: Start: 65-26-1939Akclz depression screening assessment Rajni Gaytanhas DO Work Phone: Start: 93-04-6997Piqavw-up visitFollow-upMANEL BOUMEGOUASStart: 42-85-3393Rwvip depression screening assessmentRajni Steiner DO Work Phone: Start: 57-99-1642Uzconocycovhqg aspir&/inj major jt/bursa w/o usJacristina A Aleksandar DO Work Phone: Start: 87-47-7664Zadyz shoulder complete minimum 2 viewsEusebia Huertas DO Work Phone: Start: 50-29-6334Apzodr-up visitFollow-upSHANMISTI Garcia ELSTONStart: 65-78-0136Bhprs depression screening assessmentRajni Steiner DO Work Phone: Start: 41-55-9649Mrzfvmlat single/inner layer scrubber tender trigger point 1/2 musclesAmy Deel ARRT Work Phone: Start: 37-09-1837Dwcvb spine 1 view specify levelEusebia Huertas DO Work Phone: Start: 06-41-7685Gxywk depression screening assessment Rajni Steiner DO Work Phone: Start: 14-75-7419Fsepm depression screening assessment Rajni Steiner DO Work Phone: Start: 70-46-3980XZKI INFLUENZA A/INFLUENZA B/SARS-COV-2 VERMarcos Stephens CLIENT PORTFOLIO MANAGER-[employer] ADMINISTRATOR Work Phone: Start: 70-92-1530Geeis depression screening assessment Kacey Stephens CLIENT PORTFOLIO MANAGER-[employer] ADMINISTRATOR Work Phone: Start: 71-96-0754Kpdln depression screening assessment Rajni Steiner DO Work Phone: Start: 81-78-0763Yghqo depression screening assessment Rajni Steiner DO Work Phone: Start: 32-11-7498Wptlz metabolic panel calcium total Rajni Gimenez MD Work Phone: start: 32-23-9886WTALG OXIMETRY, SPOTRajni Gimenez MD Work Phone: start: 24-31-8753Zmhpd metabolic panel calcium total Rajni Gimenez MD Work Phone: start: 52-78-4567Kxmml of lactateMary Lock MD Work Phone: Start: 07-25-2023 End: 91-91-0974Fmkugns bacterial blood aerobic w/id isolatesMary Lock MD Work Phone: Start: 07-00-4489ZLVD/FLU A+B/RSV BY NAAT/MOLECULAR (M4RT COLLECTION TUBE)Mary Lock MD Work Phone: Start: 28-04-9455Xzxpl gases any combination ph pco2 po2 co2 smf2SqhggzMary Lock MD Work Phone: Start: 07-25-2023 End: 63-49-3957UHVOIAPBBJPQunenc Vohra MD Work Phone: Start: 78-60-2405Xclyhabtym exam chest 2 viewsMary Lock MD Work Phone: Start: 69-84-9878EX ED CRITICAL CAREMary Lock MD Work Phone: Start: 86-38-7878Wktkd metabolic panel calcium total Mary Lock MD Work Phone: Start: 78-95-3959Kwl routine ecg w/least 12 lds trcg only w/o i&Mary Jane Lock MD Work Phone: Start: 37-28-9305Yybaj depression screening assessment Rajni Steiner DO Work Phone: Start: 54-35-4291Fyuxf depression screening assessment Rajni Steiner DO Work Phone: Start: 19-52-4567M-ray of lumbar spine, six views including bending viewsJEFFERSON Fowler Work Phone: Start: 28-77-9064Xtytjxx of coronary artery bypass graftingHx of CABGGrace Meadows DO Work Phone: Start: 07-02-0189Gbgpbvxfyye observation [Identifier] in Cervix by Cyto stainSeloisemisti Meadows DO Work Phone: Start: 42-41-0724Ulupp depression screening assessment Grace Meadows DO Work Phone: History of coronary artery bypass graftingHx of CABG Myriam Peacock MD Work Phone: History of coronary artery bypass graftingHistory of four vessel coronary artery bypass graftKacey Sims RN Plan of Treatment DateCare ActivityDetailAuthorStart: 42-09-7277Hqylw BMI ScreeningAdult BMI ScreeningProMedica Health SystemStart: 85-92-9761Mehaifb ScreeningTobacco ScreeningProMedica Health SystemStart: 75-58-1716Pfihe BMI ScreeningAdult BMI ScreeningProMedica Health SystemStart: 76-41-1613Cctjumk ScreeningTobacco ScreeningProMedica Health SystemStart: 82-44-1615Psxmm BMI ScreeningAdult BMI ScreeningProMedica Health SystemStart: 44-98-8058Rxeljcz ScreeningTobacco ScreeningProMedica Health SystemStart: 56-17-8222Crxzt BMI ScreeningAdult BMI ScreeningProMedica Health SystemStart: 36-29-1985Tnmmlru ScreeningTobacco ScreeningProMedica Health SystemStart: 57-91-4610Tpyha BMI ScreeningAdult BMI ScreeningProMedica Health SystemStart: 99-75-0356Jajpmar ScreeningTobacco ScreeningProMedica Health SystemStart: 75-09-8974Tlksy BMI ScreeningAdult BMI ScreeningProMedica Health SystemStart: 43-85-8345Mzccdrqpff ScreeningDepression ScreeningProMedica Health SystemStart: 55-47-5608Hedjvgr ScreeningTobacco ScreeningProMedica Health SystemStart: 55-32-6826Mgkac BMI ScreeningAdult BMI ScreeningProMedica Health SystemStart: 18-60-5443Wjkuqkq ScreeningTobacco ScreeningProMedica Health SystemStart: 21-57-8237Sigdq BMI ScreeningAdult BMI ScreeningProMedica Health SystemStart: 62-08-1474Fqodkyhvvt ScreeningDepression ScreeningProMedica Health SystemStart: 46-72-4808Fhqqukt ScreeningTobacco ScreeningProMedica Health SystemStart: 79-37-4074Wxehb BMI ScreeningAdult BMI ScreeningProMedica Health SystemStart: 67-02-2161Gstjvmqfjp ScreeningDepression ScreeningProMedica Health SystemStart: 73-37-4562Zrrjtys ScreeningTobacco ScreeningProMedica Health SystemStart: 51-03-7463Cqttx BMI ScreeningAdult BMI ScreeningProMedica Health SystemStart: 89-57-2267Ovpofwqkwb ScreeningDepression ScreeningProGlenbeigh Hospitalca Health SystemStart: 78-69-3839Dloar BMI ScreeningAdult BMI ScreeningProMedica Health SystemStart: 63-85-5987Gteaykd ScreeningTobacco ScreeningBrattleboro Memorial HospitalMedica Health SystemStart: 95-56-6344Yspft BMI ScreeningAdult BMI ScreeningChildren's Hospital for Rehabilitationca Health SystemStart: 22-45-6055Cdapsgytga ScreeningDepression ScreeningChildren's Hospital for Rehabilitationca Health SystemStart: 57-02-6000Exbhdqs ScreeningTobacco ScreeningChildren's Hospital for Rehabilitationca Health SystemStart: 54-42-4821Ngommu Use: Cardiovascular Statin Use: CardiovascularChildren's Hospital for Rehabilitationca [facility] SystemStart: 16-84-8686Kwuqmr Use: DiabeticStatin Use: DiabeticBarnesville Hospital SystemStart: 03-15-2025 End: 53-59-4261Rzucasi encounter ecofspima80/19/2025 1:30 PM EST Office Visit [facility] [address] [place] [phone] Rajni Steiner, [address] [place], [place] [facility] - Family MedicineStart: 03-08-2025 End: 09-65-2144Stmnltw encounter jikqdzvnb56/12/2025 3:15 PM EST Office Visit LUZ MOSLEY [address] [place] [address] Sydnie Guerrero, DO [address] [place] [address] [facility] FNR PULMStart: 26-89-7079Ajqudjuezovlsb of varicella zoster vaccineZoster (Shingles) Vaccine (1 of 2)[facility] SystemComment on above:Postponed from 2012 (Patient Refused)Start: 53-75-5822Oopla BMI ScreeningAdult BMI ScreeningBarnesville Hospital SystemStart: 03-07-2025 End: 02-37-2301Hfmnv metabolic 2000 panel - Serum or PlasmaBasic Metabolic Panel Lab Routine Chronic diastolic heart failure (CMS-HCC) Expected: 03/07/2025 (Ap proximate), Expires: 02/21/2026[facility] Work Phone: Comment on above:Expected: 03/07/2025 (Approximate), Expires: 02/21/2026Start: 51-93-0985Zzbujgh ScreeningTobacco ScreeningBarnesville Hospital SystemStart: 89-09-9870Wodcz BMI ScreeningAdult BMI ScreeningBarnesville Hospital SystemStart: 19-61-4689Mdmqdswzt for malignant neoplasm of cervixPap SmearBarnesville Hospital SystemStart: 69-96-0526Zwalycx ScreeningTobacco Screening [facility] Hospitaltart: 02-08-2025 End: 60-55-1077Rwaburx encounter lsuiqvsxj33/15/2025 1:30 PM EDT Office Visit [facility] - Family Medicine [address] [place] [id number] Rajni Steiner, [address] [facility] [place], [place] [facility] Internal Medicine - Family MedicineStart: 02-06-2025 End: 16-19-5383Wdytwee encounter egnbxxaah95/13/2025 3:30 PM EDT Office Visit [facility] - [facility] Failure Clinic [address] [place] [id number] Risa uSmmers MD [address] [place] [address] [facility] - Heart Failure ClinicStart: 94-22-9597Ftkvo BMI ScreeningAdult BMI ScreeningProSt. Mary'S Medical Center SystemStart: 85-90-4387Msmsqqi ScreeningTobacco ScreeningProSt. Mary'S Medical Center SystemStart: 01-04-2025 End: 44-51-0585Uyohdzqnb to same day surgery oabauf6101/04/2025 10:00 AM EDT - 01/04/2025 11:00 AM EDT Surgery [facility] - Endoscopy [address] [place] [address] Rajni Steiner, DO [address] [place] [address] ESOPHAGOGASTRODUODENOSCOPY DIAGNOSTIC [65255(CPT )][facility] - EndoscopyComment on above:ESOPHAGOGASTRODUODENOSCOPY DIAGNOSTIC [77488 (CPT )]Start: 65-74-6675Iztpfcqsst hospital visit by fxnipsmhs27/10/2025 10:00 AM EDT Hospital Encounter [facility] - Endoscopy [address] [place] [address] Rajni Steiner, DO [address] [place] [address] [facility] - EndoscopyStart: 01-04-2025 End: 99-23-3216Kwhbmvwipsgowaerrgodkbyhgj transoral diagnosticFREMONT END[facility] Start: 01-03-2025 End: 02-17-2489lelfeukzwb85/09/2025 3:50 PM EDT Support Visit [facility] - Pre Admit [address] [place] [address] [facility] - Pre AdmitStart: 48-28-7993Ubhfg BMI ScreeningAdult BMI ScreeningProSt. Mary'S Medical Center SystemStart: 01-33-0622Qbkdtwzpdc ScreeningDepression ScreeningProSt. Mary'S Medical Center SystemStart: 99-44-4741Qdbwgwv ScreeningTobacco ScreeningProSt. Mary'S Medical Center SystemStart: 12-21-2024 End: 05-13-8991Cfibkai encounter elaznbtoh16/27/2025 7:30 AM EDT Appointment [facility] Cardiovascular [address] [place] [address] Odessa Cook, CLIENT PORTFOLIO MANAGER-MOLECULAR BIOLOGIST [address] [place] [address] [facility] CardiovascularStart: 12-20-2024 End: 59-59-1489Visvibxiv to same day surgery rujjei7612/20/2024 10:00 AM EDT - 12/20/2024 11:00 AM EDT Surgery [facility] - Endoscopy [address] [place] [address] Rajni Steiner, DO [address] [place] [address] ESOPHAGOGASTRODUODENOSCOPY DIAGNOSTIC [04359(CPT )][facility] EndoscopyComment on above:ESOPHAGOGASTRODUODENOSCOPY DIAGNOSTIC [67385 (CPT )]Start: 12-20-2024 End: 54-46-2120Jzfpvjdfybujipzupqjqdyldrk transoral diagnostic ESOPHAGOGASTRODUODENOSCOPY DIAGNOSTIC microcytic anemia 12/20/2024 10:00 AM EDT [place]: 75-56-9672Edwjuegbfc hospital visit by physician 12/20/2024 10:00 AM EDT Hospital Encounter [facility] - Endoscopy [address] [place] [address] Rajni Steiner, DO [address] [place] [address] [facility] - EndoscopyStart: 12-19-2024 End: 18-81-6719gweesjygts54/25/2025 2:40 PM EDT Support Visit [facility] - Pre Admit [address] [facility] [place] [address] [facility] - Pre AdmitStart: 70-95-1402Ialgr BMI ScreeningAdult BMI ScreeningProGlenbeigh Hospitalca Health SystemStart: 54-28-2490Ytvdmrm ScreeningTobacco ScreeningCleveland Clinic Foundation Health SystemStart: 12-08-2024 End: 27-50-1654skbtulruxx01/14/2025 9:00 AM EDT Lab [facility] - Lab [address] [place] [address] [phone] Valley Community Hospital - LabStart: 48-72-2405Pukqp BMI ScreeningAdult BMI ScreeningProGlenbeigh Hospitalca Health SystemStart: 12-07-2024 End: 71-67-6532Jlgovae encounter dbrzyyzoj92/13/2025 2:00 PM EDT [facility] [address] [facility] [place] [address] Rajni Steiner, [address] [facility] [place], [id number] [facility] Internal Medicine - Family MedicineStart: 51-50-7002Cpwipkd ScreeningTobacco ScreeningBarnesville Hospital SystemStart: 76-24-6668Qxycy BMI ScreeningAdult BMI ScreeningChildren's Hospital for Rehabilitationca [facility] SystemStart: 12-06-2024 End: 03-81-9869Bqjccwj encounter qyabomejs38/12/2025 10:30 AM EDT [facility] [place] [facility] [address] [place], [place] [address] [address] [phone] Rick Hector [place] - Total RehabStart: 11-28-2024 End: 66-71-4549Zfgy complete W/O contrastEcho complete W/O contrast Echocardiography Routine Chronic heart failure with preserved ejection fraction ([facility]) Pulmonary hypertension ([facility]) Nonrheumatic tricuspid valve regurgitation Essential hypertension Atherosclerosis of [place] coronary artery of [place] heart without angina pectoris History of four vessel coronary artery bypass graft NSTEMI (non-ST elevated myocardial infarction) ([facility]) Expected: 11/28/2024, Expires: 11/28/2025[facility] SystemComment on above:Expected: 11/28/2024, Expires: 11/28/2025Start: 11-28-2024 End: 61-17-7886Vakdsfx encounter xiurrioxi24/04/2025 2:00 PM EDT Office Visit [facility] [address] [place] [address] Odessa Cook, CLIENT PORTFOLIO MANAGER-MOLECULAR BIOLOGIST [address] [place] [address] [facility] - Heart Failure ClinicStart: 11-07-2024 End: 08-43-3620Rtxuxtg encounter ghzlrhwir04/14/2025 2:30 PM EDT [facility] - [facility] Medicine [address] [place] [address] Rajni Steiner, [address] [facility] [place], [id number] [facility] Internal Medicine - Family MedicineStart: 11-07-2024 End: 85-15-2702VH Knee - right 3 ViewsX-ray knee right 3 views Imaging Routine Patellar tendinitis of right knee Expected: 11/07/2024, Expires: 11/07/2025 [facility] Work Phone: Comment on above:Expected: 11/07/2024, Expires: 11/07/2025Start: 11-02-2024 End: 87-20-3518Ibbiufe encounter hvnyghpcy90/09/2025 8:30 AM EDT Appointment [facility] - Radiology [address] [place] [address] [phone] Hospital - RadiologyStart: 11-01-2024 End: 67-01-6096Cerpqim encounter mkalqtuth15/08/2025 4:30 PM EDT Appointment [facility] Rehab [address] [place] [address] Cervicogenic headacheProTanner Medical Center East Alabama - Total RehabComment on above:Cervicogenic headacheStart: 32-20-0401Impgt BMI ScreeningAdult BMI ScreeningBarnesville Hospital SystemStart: 79-22-1667Gayzdvtqvx ScreeningDepression ScreeningProSt. Mary'S Medical Center SystemStart: 38-42-4965Dbjvnab ScreeningTobacco ScreeningBarnesville Hospital SystemStart: 10-27-2024 End: 94-09-2150CZ Gastrointestinal tract upper Views W air contrast PO and W barium contrast POFluoroscopy upper GI with esophagus Imaging Routine Nausea and vomiting, unspecified vomiting type Expected: 10/27/2024, Expires: 10/27/2025 [facility] SystemComment on above:Expected: 10/27/2024, Expires: 10/27/2025Start: 08-59-8394Pxsok BMI ScreeningAdult BMI ScreeningProSt. Mary'S Medical Center SystemStart: 98-20-2332Uncethz ScreeningTobacco ScreeningBarnesville Hospital SystemStart: 10-07-2024 End: 75-10-6454Wcpziws encounter qvkmvoewg21/13/2025 11:30 AM EDT Office Visit [facility] Internal Medicine - Family Medicine [address] [place], [place] [address] [address] Rajni Steiner, DO [address] [place] [address] [facility] Internal Medicine - Family MedicineStart: 22-66-3388Yxenw BMI ScreeningAdult BMI ScreeningProGlenbeigh Hospitalca [facility] SystemStart: 09-83-9476Xkixxbsmpj ScreeningDepression ScreeningProMedica Health SystemStart: 58-21-9748Dbttyus ScreeningTobacco ScreeningProMedica Health SystemStart: 14-21-2720Fnqzr BMI ScreeningAdult BMI ScreeningProMedica Health SystemStart: 19-71-2299Gbmnxqwylk ScreeningDepression ScreeningProMedica Health SystemStart: 32-19-6082Djwkcti ScreeningTobacco ScreeningProMedica Health SystemStart: 09-21-2024 End: 55-20-9620Pmpnrwp encounter zwaikhekb32/28/2025 3:00 PM EDT Office Visit [facility] [address] [place] [address] Sydnie Guerrero, [address] [place] [address] ArrivedNOMS FNR PULMComment on above:ArrivedStart: 09-17-2024 Adult BMI ScreeningAdult BMI ScreeningProMedica Health SystemStart: 09-08-2024 Adult BMI ScreeningAdult BMI ScreeningProMedica Health SystemStart: 09-08-2024 Depression ScreeningDepression ScreeningProMedica Health SystemStart: 09-08-2024 Tobacco ScreeningTobacco ScreeningProMedica Health SystemStart: 54-89-9302Oahme BMI ScreeningAdult BMI ScreeningProMedica Health SystemStart: 33-31-2670Atyricn ScreeningTobacco ScreeningProMedica Health SystemStart: 29-24-5678Saitw BMI ScreeningAdult BMI ScreeningProMedica Health SystemStart: 05-66-0650Fzlczqywgu ScreeningDepression ScreeningProMedica Health SystemStart: 88-21-2778Mxwrgvz ScreeningTobacco ScreeningProMedica Health SystemStart: 75-46-4122Qbgsz BMI ScreeningAdult BMI ScreeningProMedica Health SystemStart: 92-67-7130Qkviokn ScreeningTobacco ScreeningProMedica Health SystemStart: 08-14-2488Kjecg BMI ScreeningAdult BMI ScreeningProMedica Health SystemStart: 13-78-2160Ulswnkr ScreeningTobacco ScreeningProMedica Health SystemStart: 62-12-5164Gnden BMI ScreeningAdult BMI ScreeningProMedica Health SystemStart: 60-75-9560Narjcezfxq ScreeningDepression ScreeningProMedica Health SystemStart: 45-55-8777Eorgvnh ScreeningTobacco ScreeningProMedica Health SystemStart: 06-29-2024 End: 44-70-2995Zpzqbkk encounter xqbciagxu92/05/2025 3:00 PM EST Office Visit [facility] [address] [place] [address] Sydnie Guerrero, DO [address] [place] [place] [address] [facility] FNDasha PULMStart: 09-06-6448Sdlvi BMI ScreeningAdult BMI ScreeningProMedica Health SystemStart: 41-23-5891Tdiwvfa ScreeningTobacco ScreeningProMedica Health SystemStart: 06-08-2024 End: 53-61-5167Pjtkftu encounter wwyirbftt94/12/2025 1:00 PM EST Office Visit [facility] Internal Medicine - Family Medicine [address] [place] [address] Rajni gonsalez, [address] [facility], [place] [facility] Internal Medicine - Family MedicineStart: 35-79-2462Luwwp BMI ScreeningAdult BMI ScreeningProMedica Health SystemStart: 62-13-6523Tmoratrnzp ScreeningDepression ScreeningProMedica Health SystemStart: 56-68-7258Ncipxcb ScreeningTobacco ScreeningProMedica Health SystemStart: 18-80-8432Kdptg BMI ScreeningAdult BMI ScreeningProMedica Health SystemStart: 47-88-1791Hgmnoet ScreeningTobacco ScreeningProMedica Health SystemStart: 03-17-2024 End: 76-47-7909Oplwvhn encounter uwjrdzura39/21/2024 1:00 PM EST Consult [facility] [address] [place] [address] Sydnie Guerrero DO [address] [place] [address] ArrivedNOMS PULMComment on above:ArrivedStart: 03-10-2024 End: 99-03-3405Lsbwmqd encounter ifkftxovq73/14/2024 3:00 PM EST Office Visit [facility] Pulmonary/Sleep Medicine [address] [place] [address] Grace Meadows, DO [address] [address] [facility] Pulmonary/Sleep MedicineStart: 03-07-2024 End: 70-05-2155Niiojdw encounter lumiiwbjt53/11/2024 1:00 PM EST Office Visit [facility] Internal Medicine - Family Medicine [address] [place] [address] Rajni Steiner, DO [address] [place], [place] [facility] Internal Medicine - Family MedicineStart: 02-19-2024 End: 87-16-2877Ivtwika encounter isvlsdihq90/25/2024 10:45 AM EDT Office Visit [facility] Cardiology [address] [facility] [address] [place] [address] Alex Amos MD [address] [place] [address] Saqib Giles MD [address] [place] [facility] [place] [phone] (Work) [facility] CardiologyStart: 02-09-2024 End: 20-38-1049Aoxdqct encounter xsdyotidh18/15/2024 1:30 PM EDT Office Visit [facility] [address] [place] [address] Eusebia Huertas, DO [address] [place] [address] [facility]THOPAEDICSStart: 01-21-2024 End: 85-16-1616Fadcrbq encounter kplgdulex17/26/2024 10:00 AM EDT Office Visit [facility] Pulmonary/Sleep Medicine [address] [facility] [place] [address] Grace Meadows, DO [address] [address] [facility] Pulmonary/Sleep MedicineStart: 01-19-2024 End: 21-71-4456Ctczwny encounter procedureNOMS CI ORTHOPAEDICSStart: 01-14-2024 End: 05-25-5240Vfkhuqp encounter /19/2024 3:00 PM EDT Office Visit [facility] Pul[facility]/Sleep Medicine [address] [place] [address] Grace Meadows, DO [address] [address] [facility] Pulmonary/Sleep MedicineStart: 01-12-2024 End: 43-73-2341Fsctaup encounter oapabshkd15/17/2024 10:45 AM EDT Office Visit [facility] [address] [place] [address] Eusebia Huertas, DO [address] [place] [address] [facility]THOPAEDICSStart: 01-04-2024 End: 40-63-4232Ohgmcnx encounter usxbbgfam15/09/2024 1:00 PM EDT Office Visit [facility] Internal Medicine - Family Medicine [address] [place] [address] Rajni Steiner, DO [address] [facility] [id number] [facility] Internal Medicine - Family MedicineStart: 12-29-2023 End: 19-81-4758Lzlhaco encounter bssibzzpp16/03/2024 10:45 AM EDT Office Visit [facility] [address] [facility] [address] [place] [address] Eusebia Huertas, 112 [facility] [address] [place] [address] Compression fracture of T6 vertebra with routine healing, subsequent encounter; Compression fracture of T8 vertebra with routine healing, subsequent encounter; Osteoporotic compression fracture of vertebra with routine healing, subsequent encounterNOMS CI ORTHOPAEDICSComment on above:Compression fracture of T6 vertebra with routine healing, subsequent encounter; Compression fracture of T8 vertebra with routine healing, subsequent encounter; Osteoporotic compression fracture of vertebra with routine healing, subsequent encounterStart: 47-46-9549Gmtoeukkw vaccinationInfluenza VaccineChildren's Hospital for Rehabilitationca Health SystemStart: 12-07-2023 End: 40-39-3402Coxorqac Nmnlgfc8012/07/2023 8:00 PM EDT Clinical Support [facility] - Sleep Disorders [address] [place] [address] [place] [address] Grace Meadows, DO [address] [address] [facility] - Sleep DisordersStart: 12-03-2023 End: 54-06-2062Ggjabue encounter jnyajmafd65/08/2024 10:00 AM EDT Office Visit [facility]Sleep [facility] [address] [facility] [place] [address] Grace Meadows, DO [address] [address] [facility] Pulmonary/Sleep MedicineStart: 11-02-2023 End: 38-78-2474Irqejvj encounter yyllvbikn61/08/2024 3:30 PM EDT Office Visit [facility] Internal Medicine - Family Medicine [address] [place] [address] Rajni Steiner, DO [address] [place], [place] [facility] Internal [facility] - [facility] MedicineStart: 10-06-2023 End: 88-16-8395Msfryri encounter procedureHocking [facility] - Mammogram DEXAStart: 09-30-2023 End: 74-15-3857Gcsoljs encounter /05/2024 1:30 PM EDT Office Visit [facility] Medicine - Family Medicine [address] [place] [address] Rajni Steiner, DO [address] [place], [place] [facility] Internal Medicine - [facility] MedicineStart: 09-11-2023 End: 27-79-8313Dmxgzhl encounter evwgzskey80/17/2024 1:00 PM EDT Appointment [facility] [place] - Mammography [address] [place] [address] [phone] Harris [facility] [place] - MammographyStart: 09-10-2023 End: 69-93-8825Ncftkak encounter procedureHocking [facility] - VascularStart: 09-10-2023 End: 67-23-7818Kotwofb encounter ljlokxizv78/16/2024 8:15 AM EDT Appointment [facility] - MRI Imaging [address] [place] [address] Rajni Steiner, DO [address] [place] [address] [facility] - MRI ImagingStart: 09-09-2023 End: 23-63-2371Qbdwvcn encounter keuzpgagu28/15/2024 1:00 PM EDT Office Visit [facility] Internal Medicine - Family Medicine [address] [place] [address] Rajni Steiner, DO [address] [facility] [place], [id number] [facility] Internal Medicine - Family MedicineStart: 08-11-2023 End: 98-90-9609Kpclyfwn Nxvxxva9408/11/2023 8:00 PM EDT Clinical Support [facility] - Sleep Disorders [address] [place] [address] Grace Meadows, DO [address] [address] [facility] - Sleep DisordersStart: 08-10-2023 End: 73-33-3266Aifucwt encounter coavnxiil23/15/2024 1:00 PM EDT [facility] [address] [place] [address] Rajni Steiner, DO [address] [facility] [place], [id number] [facility] Internal Medicine - Family MedicineStart: 08-03-2023 End: 51-11-9570Pragkoo encounter rwxruotpv14/08/2024 10:00 AM EDT Office Visit [facility] Heart Failure Clinic [address] [place] [address] Cynthia Buchanan, CLIENT PORTFOLIO MANAGER-MOLECULAR BIOLOGIST [address] [place], [place] [address] [facility] - Heart Failure ClinicStart: 07-27-2023 End: 26-00-2259Ayxuljy encounter irjcrmxtt37/01/2024 8:30 AM EDT Office Visit [facility] Heart Failure Clinic [address] [place] [address] Cynthia Buchanan, CLIENT PORTFOLIO MANAGER-MOLECULAR BIOLOGIST [address] [place] [address] [facility] - Heart Failure ClinicStart: 07-01-2023 End: 43-89-6822Lnczfsz encounter procedureHocking Valley [facility] Hospital - Pulmonary FunctionStart: 06-29-2023 End: 91-45-5908Ogrxxpj encounter buxeoytgk36/04/2024 12:00 PM EST Office Visit [facility] Internal Medicine - Family Medicine [address] [place] [address] Rajni Steiner, DO [address] [place] [address] [facility] Internal Medicine - Family MedicineStart: 06-25-2023 End: 16-72-4893Ybbzkux encounter /29/2024 10:00 AM EST Office Visit [facility] Pulmonary/Sleep Medicine [address] [facility] [place] [address] Grace Meadows, DO [address] [address] [facility] Pulmonary/Sleep MedicineStart: 06-01-2023 End: 17-06-0479Jbbhpcp encounter xwqezvljl14/05/2024 1:30 PM EST Office Visit [facility] Internal Medicine - Family Medicine [address] [place] [address] Rajni Steiner, DO [address] [place] [id number] [facility] Internal Medicine - Family MedicineStart: 56-49-9887Qdeawnheh vaccination Influenza VaccineBarnesville Hospital SystemStart: 38-70-0663DYU ( or age 60+ yrs) (1 - Risk 60-74 years 1-dose series)RSV ( or age 60+ yrs) (1 - Risk 60-74 years 1-dose series)[facility] SystemStart: 08-06-2021 Depression ScreeningDepression ScreeningBarnesville Hospital SystemStart: 2012 Administration of varicella zoster vaccineZoster (Shingles) Vaccine (1 of 2) [facility] SystemStart: 88-73-0990Ebzknscxnzcdrp of varicella zoster vaccineZoster (Shingles) Vaccine (1 of 2)[facility] SystemStart: 89-74-1551QNqF,Tdap and Td Vaccines (1 - Tdap)DTaP,Tdap and Td Vaccines (1 - Tdap)[facility] SystemStart: 12-78-1398Kiprf BMI Follow Up PlanAdult BMI Follow Up PlanBarnesville Hospital SystemStart: 41-72-5895Stmcuhiy foot examination Diabetic Foot ExamProSt. Mary'S Medical Center SystemStart: 57-90-1329Eijuzkbc screening Diabetic Ophthalmology ExamCentral Harnett Hospitaltart: 33-88-0662Salkil Use: CardiovascularStatin Use: CardiovascularBarnesville Hospital SystemStart: 1962 Statin Use: DiabeticStatin Use: DiabeticBarnesville Hospital SystemStart: 1962 Tobacco CounselingTobacco CounselingMemorial HospitalBacteria identified in Blood by Aerobe cultureProGlenbeigh Hospitalca Work Phone: End: 48-82-2350Ptgxs metabolic 1999 panel - Serum or PlasmaBasic Metabolic Panel Lab Routine Chronic heart failure with preserved ejection fraction (CMS-HCC) 1 Occurrences starting 11/02/2023 until 11/01/2024[facility] Hospital SystemComment on above:1 Occurrences starting 11/02/2023 until 11/01/2024 End: 70-79-7511Fxqwd metabolic 2000 panel - Serum or PlasmaBasic Metabolic Panel Lab Routine Chronic heart failure with preserved ejection fraction ([facility]) P ulmonary hypertension ([facility]) Nonrheumatic tricuspid valve regurgitation Essential hypertension Atherosclerosis of [place] coronary artery of [place] heart without angina pectoris History of four vessel coronary artery bypass graft NSTEMI (non-ST elevated myocardial infarction) ([facility]) 1 Occurrences starting 11/28/2024 until 11/28/2025[facility] Work Phone: Comment on above:1 Occurrences starting 11/28/2024 until 11/28/2025 End: 10-84-6847Qnmdz metabolic 2000 panel - Serum or PlasmaBasic Metabolic Panel Lab Routine Chronic heart failure with preserved ejection fraction ([facility]) E ssential hypertension Pulmonary hypertension ([facility]) Nonrheumatic tricuspid valve regurgitation Atherosclerosis of [place] coronary artery of [place] heart without angina pectoris History of four vessel coronary artery bypass graft 1 Occurrences starting 11/30/2024 until 11/30/2025[facility] Work Phone: Comment on above:1 Occurrences starting 11/30/2024 until 11/30/2025 End: 41-57-8758Idtjm metabolic 2000 panel - Serum or PlasmaBasic Metabolic Panel Lab Routine Chronic diastolic heart failure ([facility]) Pulmonary hypertension ( [facility]) Nonrheumatic tricuspid valve regurgitation 1 Occurrences starting 02/06/2025 until 02/06/2026[facility] Work Phone: Comment on above:1 Occurrences starting 02/06/2025 until 02/06/2026 End: 25-96-5411MKW W Auto Differential panel - BloodCBC auto differential Lab Routine Chronic heart failure with preserved ejection fraction ([facility]) 1 Occurrences starting 11/02/2023 until 11/01/2024[facility] Work Phone: Comment on above:1 Occurrences starting 11/02/2023 until 11/01/2024 End: 35-59-4919BTO W Auto Differential panel - BloodCBC auto differential Lab Routine Stage 3a chronic kidney disease ([facility]) 1 Occurrences starting 0 07/07/2024 until 07/07/2025[facility] Work Phone: Comment on above:1 Occurrences starting 07/07/2024 until 07/07/2025 End: 62-41-0124Fzlqyklbzgfmt metabolic 2000 panel - Serum or PlasmaComprehensive metabolic panel Lab Routine Stage 3a chronic kidney disease ([facility]) 1 Occurrences starting 07/07/2024 until 07/07/2025ProGlenbeigh HospitalInformed Trades SystemComment on above:1 Occurrences starting 07/07/2024 until 07/07/2025 End: 28-77-0291Kadnmdqvhwuyno vitamin b-12Vitamin B12 Lab Routine B12 deficiency 1 Occurrences starting 11/02/2023 until 11/01/2024[facility] Hospital for RehabilitationInformed Trades SystemComment on above:1 Occurrences starting 11/02/2023 until 11/01/2024 End: 01-57-8820Gigpkjhsyqhzqy vitamin b-12Vitamin B12 Lab Routine B12 deficiency 1 Occurrences starting 07/07/2024 until 07/07/2025ProGlenbeigh HospitalInformed Trades SystemComment on above:1 Occurrences starting 07/07/2024 until 07/07/2025 End: 92-90-9084IvgzrsylovycvrfvjazialfmcgUNJ GI Routine Microcytic anemia Gastro-esophageal reflux disease without esophagitis 1 Occurrencesstarting 12/15/2024 until 12/15/2025[facility] Work Phone: Comment on above:1 Occurrences starting 12/15/2024 until 12/15/2025Esophagogastroduodenoscopy transoral diagnostic ESOPHAGOGASTRODUODENOSCOPY DIAGNOSTIC Microcytic anemiaFREMONT ENDOSCOPY End: 86-06-6432Isaiacwlwk A1c/Hemoglobin.total in BloodHemoglobin A1c Lab Routine IFG (impaired fasting glucose) 1 Occurrences starting 07/07/2024 until 07/07/2025Pro[facility] HospitalInformed Trades SystemComment on above:1 Occurrences starting 07/07/2024 until 07/07/2025 End: 98-11-1775Qpesflmoof A1c/Hemoglobin.total in BloodHemoglobin A1c Lab Routine Type 2 diabetes mellitus with stage 3a chronic kidney disease, without long-term current use of insulin [place] 1 Occurrences starting 10/27/2024 until 10/27/2025[facility] Work Phone: Comment on above:1 Occurrences starting 10/27/2024 until 10/27/2025Hemoglobin A1c/Hemoglobin.total in BloodHemoglobin A1c Lab Routine Type 2 diabetes mellitus with stage 3a chronic kidney disease, without long-term current use of insulin ([facility] 10/27/2024 4:57 PM [facility] End: 27-60-7291[place]asba 1996 panel - Serum or PlasmaLipid profile Lab Routine Atherosclerotic heart disease of [place] coronary artery with other forms of angina pectoris ([facility] 1 Occurrences starting 07/07/2024 until 07/07/2025 [facility] My[facility]und[employer] SystemComment on above:1 Occurrences starting 07/07/2024 until 07/07/2025 End: 29-28-5030Nzillsfxg [Mass/volume] in Serum or PlasmaMagnesium Lab Routine Chronic heart failure with preserved ejection fraction ([facility]) 1 Occurrences starting 11/02/2023 until 11/01/2024[facility] RehabilitationInformed Trades SystemComment on above:1 Occurrences starting 11/02/2023 until 11/01/2024 End: 29-93-8931Nmjvgrsbsnyzhzx 4 or more parameters with PAP titration Polysomnography 4 or more parameters with PAP titration Sleep Center Routine BONY (obstructive sleepapnea) Hypoxemia associated with sleep 1 Occurrences starting 08/14/2023 until 08/13/2024[facility] Work Phone: Comment on above:1 Occurrences starting 08/14/2023 until 08/13/2024 End: 28-61-9800Nwufiutwl function test Spirometry (Flow Volume Loop) pre/post short acting bronchodilator w/ DLCO (diffusion study)Pulmonary function test Spirometry (Flow Volume Loop) pre/post short acting bronchodilator w/ DLCO ( diffusion study) PFT Routine Chronic obstructive pulmonary disease, unspecified COPD type ([facility]1 Occurrences starting 06/25/2023 until 06/24/2024[facility] HospitalWoopie SystemComment on above:1 Occurrences starting 06/25/2023 until 06/24/2024 End: 35-87-0818Rcuuo Night Sleep StudySplit Night Sleep Study Sleep Center Routine BONY treated with BiPAP 1 Occurrences starting 06/25/2023 until 06/24/2024[facility] Work Phone: Comment on above:1 Occurrences starting 06/25/2023 until 06/24/2024 Immunizations Immunization DateImmunizationNotesCare CzzsawxdDnyugsgn41-82-5811kozdikevcx skin test; purified protein derivative solution, intradermalLeanne Cesar DO Work Phone: [facility] HospitalYjjokujyqz72-12-2333jcnmjwaodq skin test; unspecified formulationKacey Sims Valley HealthHxqofj66-39-1461pniwdzgjcc skin test; purified protein derivative solution, intradermalLeanne Cesar DO Work Phone: noBoone Hospital CenterDyaawrdcxl51-15-6962zqgtcctgoy skin test; unspecified formulationKacey [facility] Payers DatePayer CategoryPayerPolicy [id number] 2025Unknown 2024Medicare (Managed Care)[id number] 2024Medicare [id number] [id number] 2024Private Health Xuvjksxwt89-95-5628Sofa-lma [id number] 2022Medicare [id number] Health Insurance [id number] [id number] [id number] [id number] [id number] 2.16.840.1.796808.3.579.[id number] 2.16.840.1.295814.3.579.2.590698-75-8562Hbzogbl0659449 2.16.840.1.102010.3.579.2.185257-88-6322Xxazsce3915742 2.16.840.1.573604.3.579.2.363276-87-1509Impmhii2211550 2.16.840.1.027054.3.579.2.612385-45-6742Ixnvsxv8575350 2.16.840.1.105547.3.579.2.708693-04-8102Snxtxma4702617 2.16.840.1.160036.3.579.2.188785-99-8400Pmkryut2304192 2.16.840.1.089138.3.579.2.916896-85-7823Whwwstf3141173 2.16.840.1.085389.3.579.2.486044-73-5468Qkxomqo4258932 2.16.840.1.486249.3.579.2.430194-44-8356Nrmxnkf1984389 2.16.840.1.304924.3.579.2.715983-47-3852Xlsopiu9141501 2.16.840.1.141706.3.579.2.874150-22-8220Fipvedc9325509 2.16.840.1.525295.3.579.2.462315-87-9892Votnocn6677328 2.16.840.1.937659.3.579.2.494120-26-6211Ewbdqci8642230 2.16.840.1.896886.3.579.2.781945-80-4911Lxbntoe829506511 2.16.840.1.313645.3.579.2.462240-96-4323Oparimv67804255 2.16.840.1.632006.3.579.2.857058-54-6226Xfjwdzk83881108 2.16.840.1.889222.3.579.2.062932-89-9240Brheuzf68467992 2.16.840.1.312789.3.579.2.497641-69-6168Byyihhl00257141 2.16.840.1.580796.3.579.2.393392-17-7833Degwjqk1142535 2.16.840.1.906085.3.579.2.903982-30-9119Jbiwcas8314718 2.16840.1.890626.3.579.2.004098-89-3499Ceblait3794432 2.16840.1.350656.3.579.2.073406-67-2984Hqirbok3653339 2.16.840.1.227580.3.579.2.030684-02-3063Ckefwku6811745 2.16.840.1.935674.3.579.2.967562-35-5029Lqaeces0784641 2.16.840.1.332002.3.579.2.572309-62-8595Mukccnd8698037 2.16840.1.582380.3.579.2.976602-68-9252Zfwbaub1533344 2.16.840.1.418361.3.579.2.403478-98-1607Stgzuvi6164148 2.16840.1.736497.3.579.2.042661-17-3888Rgcqmra0461194 2.16.840.1.424629.3.579.2.157598-94-0003Qnxzztc415322030 2.16840.1.250870.3.579.2.625290-55-3412Lxpqqqi345476548 2.16.840.1.246782.3.579.2.750118-13-6865Kdeusei271401454 2.16.840.1.503826.3.579.2.234943-97-7679Rrrpcmv780627735 2.16.840.1.202138.3.579.2.530818-04-2198Vbwfhpb579978483 2.16.840.1.550073.3.579.2.279748-96-1127Pcmkioc36416465 2.16.840.1.861749.3.579.2.166190-66-9659Aejpgvy38497856 2.840.1.049599.3.579.2.213507-43-3883Ljfkxtz738437652 2.16840.1.724120.3.579.2.951072-03-2871Mqvcqzs97302122 2.16.840.1.344540.3.579.2.936089-94-5293Ywhdalc617408046 2.16.840.1.480941.3.579.2.01114-06-7432Ghwbljj446206799 2.16840.1.161240.3.579.2.36851-54-5014Aeoruml868350711 2.16.840.1.423140.3.579.2.20935-48-0542Oimrgfm494051511 2.16.840.1.753742.3.579.2.64311-26-8452Mrhsvay687075109 2.16.840.1.423268.3.579.2.28882-33-3037Pdnpxbn643053165 2.16840.1.807998.3.579.2.78420-30-0685Vszgrko185775169 2.16840.1.091179.3.579.2.076443-98-5138Diffpou594591895 2.840.1.941756.3.579.2.426138-65-1195Mqrohvg182075601 2.840.1.160157.3.579.2.529589-55-3400Suddadu490260413 2.840.1.179783.3.579.2.055553-70-6836Dlggxta148610217 2.0.1.085519.3.579.2.021027-56-4810Eqhmmwu962498384 2.840.1.844147.3.579.2.296757-34-4929Tthracy149814051 2.0.1.303113.3.579.2.613215-27-3763Whekpvt896057917 2.840.1.592989.3.579.2.944833-37-9550Dwofbwq124303405 2..1.558731.3.579.2.569815-35-7773Gtbqmzl948434745 2..1.098753.3.579.2.642315-15-6818Frlxabc800247135 2..1.881319.3.579.2.575507-11-3837Uwleemg720644930 2.0.1.037086.3.579.2.693113-43-7708Fihfpng523700968 2.840.1.155084.3.579.2.588180-78-9197Xbofwut202295341 2.840.1.798011.3.579.2.093584-09-5858Qrnreyl888161809 2.840.1.701067.3.579.2.968725-45-3975Roekstt196615803 2.16.840.1.805394.3.579.2.277608-12-2220Imbgrej820605268 2.16.840.1.507315.3.579.2.558485-81-7456Lxlctgl672931371 2.16.840.1.873604.3.579.2.270785-59-9288Mosluoy074337539 2.16.840.1.984069.3.579.2.029863-45-5766Dbugtpp277940813 2.16.840.1.329205.3.579.2.1286MedicaidMedicaid Out of [id number] 2.16.840.1.985124.19 [id number] 2.16.840.1.520895.3.579.2.571Byafklr88248002 2.16840.1.565224.3.579.2.531 Social History DateTypeDetailFacilityStart: 09-25-1981 End: 16-33-9326Uvsoliq smoking status NHISSmoker (finding)[facility]: 81-90-7851Yor [facility]: 07-25-2023 End: 22-22-0033Ydt [facility] At [facility]: 09-24-2023 End: 72-39-0643Pgvtqii smoking status NHISEx-smokerCentral Harnett Hospitaltart: 09-25-1981 End: 33-37-0615Zeysvyb of tobacco useCigarette SmokerBarnesville Hospital System Start: 01-22-2024 End: 00-27-4466Hjcnjmm use and exposureFormer smokeless tobacco userCentral Harnett Hospitaltart: 01-22-2024 End: 89-49-9185Vcbrgrtiv beverage intakeEx-drinker (finding)[facility] SystemStart: 07-25-2023 End: 13-81-6561Qorzuaq of Social functionBarnesville Hospital SystemStart: 48-53-6915Jyi assigned at birthNot on [facility] HospitalStart: 09-25-1981 End: 08-40-9291Ayuhicp smoking status NHISSmokes tobacco dailyBarnesville Hospital SystemStart: 08-11-2023 End: 64-31-0831Pxyskze use and exposureSmokeless tobacco non-userBarnesville Hospital SystemHas the electric, gas, oil, or water company threatened to shut off services in your home in past 12MoNOhio Valley Surgical HospitalAre you now , , , , never or living with a partner? [facility] HospitalHow often to you have a drink containing alcohol?Never [facility] Hospitaltart: 80-32-8051Xbu many standard drinks containing alcohol do you have on a typical day?Patient does not drinkBarnesville Hospital SystemHow hard is it for you to pay for the very basics like food, housing, medical care, and heatingSomewhat hardProFlower HospitalDo you feel stress - tense, restless, nervous, or anxious, or unable to sleep at night because your mind is troubled all the time - these days [OSQ]Only a littleCentral Harnett Hospitaltart: 65-23-9187Wckkami Comment5-6 cigerettes a dayBarnesville Hospital SystemStart: 35-05-8540Bckhkdp Commentlast use 15 years agoBarnesville Hospital SystemStart: 29-98-1300CjkStfcdp (finding)[facility] SystemStart: 15-37-9176Ltqhoz identityIdentifies as female gender (finding)[facility] SystemStart: 23-20-4588Gvmnpz orientationHeterosexual (finding)[facility] HospitalHistory of tobacco useChews TobaccoBarnesville Hospital SystemStart: 04-29-2023 End: 81-53-3912Etoshpo intakeCurrent non-drinker of alcohol (finding)[facility] SystemHow hard is it for you to pay for the very basics like food, housing, medical care, and heatingNot very hardMemorial Hospital Medical Equipment Procedure CodeEquipment CodeEquipment Original TextEquipment IdentifierDatesSj Monreal 2.75x28 Rx - [id number], [id number] FDAStart: 30-36-2166YxaSj Monreal 2.75x8 Rx - [id number], [id number] FDAStart: 01-09-2020 Goals DatePatient GoalDesired Activity/StatePersonal health goalComment on above: Evaluation of progress towards goal: under assessmentPersonal health goalComment on above: Evaluation of progress towards goal: feeling better, monitor for home V9Fxbmzovo health goalComment on above: Evaluation of progress towards goal: Pt's goal is to go to SNF at discharge for short term rehab. -DEENA LOREDO 04/25/23 3:55 PM Personal health goalComment on above: Evaluation of progress towards goal: feeling betterPersonal health goalPersonal health goal Functional Status DateAssessmentResultFacilityMemorial Hospital Clinical Notes 12-11-2022 to 02-24-2025 Note Date & JtvvEgdtAegztvxp09-19-3751 Miscellaneous Notes* Telephone Encounter - Dejah Barger RN - 02/24/2025 1:00 AM EDT Please sign and route if you agree. Thank you VENKATA 09/01/24 ABN CMP 02/22/25 - h/o CKD stage 3 documented in this encounterMemorial Hospital10-31-2025 Telephone encounter Note* Telephone Encounter - Dejah Barger RN - 02/24/2025 1:00 AM EDT Please sign and route if you agree. Thank you VENKATA 09/01/24 ABN CMP 02/22/25 - h/o CKD stage 3 [facility]10-15-2025 Telephone encounter Note* Telephone Encounter - Magali Kelly - 02/08/2025 11:19 AM EDT Hi, this is to be cool calling for Dr Cruz. I really need to move my appointment up as soon as possible. My phone number [phone]. My date is 124 3. Thank you. Patient would like to move appointment up attempted to return call but was unable to reach patient.Correction, patient returned call,, Pt is willing to travel to [place], She states that BiPap is not working correctly . [employer] is the company she uses for her bi pap, and was told nothing wrong, that pt must be using the mask wrong. She would like to move her appt up. [facility] HospitalAayhkvotua60-50-4445 Miscellaneous Notes* Telephone Encounter - Magali Kelly - 02/08/2025 11:19 AM EDT Hi, this is to be cool calling for Dr Cruz. I really need to move my appointment up as soon as possible. My phone number [phone]. My date is 124 3. Thank you. Patient would like to move appointment up attempted to return call but was unable to reach patient.Correction, patient returned call,, Pt is willing to travel to [place], She states that BiPap is not working correctly . [employer] is the company she uses for her bi pap, and was told nothing wrong, that pt must be using the mask wrong. She would like to move her appt up. documented in this encounterSaint Luke's East HospitalGnmqpukpur70-35-9131 History of Present illness Narrative* Risa Summers MD - 02/06/2025 3:30 PM EDT Images from the original note were not included. [facility] FAIL[facility] Patient: Monet Recinos Date of : 1960 Age: 64 y.o. Date of Encounter: 02/06/2025 REASON FOR VISIT: Chronic heart failure. Dear Rajni Steiner Jr, DO We [facility] the [facility] Ms. Recinos [...] enlargement, trace AI, trace to mild MR, smbt-my-jmtrolti TR,RVSP 44 mmHg PFT 07/01/2023: FEV 1 [...] mouth in the morning. 90 tablet 3 glbkydmbuu-fiekfmlp-bcwyvtkqwk (BREZTRI AEROSPHERE) 160-9-4.8 mcg/actuation HFA aerosol inhaler [...] 1 tablet before bedtime. 60 tablet 2 utrmvh-awjqabtfs-zpe,al-simeth (FIRST-MOUTHWASH BLM) 47-515-954-40 mg/30mL mouthwash Take 5 mL by mouth [...] ordination of care. 02/06/2025 Risa Summers M.D., [facility], [facility] [address] [place] [address]. [facility] [address] [place] [address] Fax This note was completed using a voice recyclable materials sorter system. Every effort was made to ensure accuracy. However, inadvertent computerized recyclable materials sorter errors may be present. * Jazmín Aceevdo RN - 02/06/2025 12:00 PM EDT Instructed patient on daily weights, fluid restriction, and low sodium diet. Advised of s/s requiring ER treatment or to call the office. Heart failure education provided: Yes. Patient verbalized understanding. documented in this encounterMemorial Hospital10-13-2025 Instructions* Patient Instructions* Risa Summers MD [...] by calling the Heart Failure Clinic at [phone]. Please call 911 for emergencies. documented in this encounterMemorial Hospital10-13-2025 Miscellaneous Notes* Telephone Encounter - Tosin Reyes CMA - 02/06/2025 9:45 AM EDT Franci from [facility] pain management called and stated that patient [...] AM EDT Notified Franci documented in this encounterMemorial Hospital10-13-2025 Telephone encounter Note* Telephone Encounter - Tosin Reyes CMA - 02/06/2025 9:45 AM EDT Franci from [facility] pain management called and stated that patient voiced concern of that she wanted to restart the gabapentin. Doctor was wondering why it was discontinued? [facility]10-13-2025 Telephone encounter Note* Telephone Encounter - Rajni Steiner DO - 02/06/2025 9:45 AM EDT Message noted. Side effects. We replaced it with pregabalin. I do not know who Franci is, but she should know these things. And if she does not, she should not be asking the questions. [facility]10-13-2025 Telephone encounter Note* Telephone Encounter - Tosin Reyes CMA - 02/06/2025 9:45 AM EDT Notified Franci [facility]10-10-2025 Miscellaneous Notes* Telephone Encounter - Antoinette Sanchez CNA - 02/03/2025 1:55 PM EDT LEFT VOICEMAIL REMINDER ABOUT APPOINTMENT ON THURSDAY 3:30. documented in this encounterMemorial Hospital10-10-2025 Telephone encounter Note* Telephone Encounter - Antoinette Sanchez CNA - 02/03/2025 1:55 PM EDT LEFT VOICEMAIL REMINDER ABOUT APPOINTMENT ON THURSDAY 3:30. [facility]10-01-2025 Telephone encounter Note* Telephone Encounter - Fabricio Lange - 01/25/2025 3:36 PM EDT Friend called- Norma has gone without Bi-pap x3 days - she said [employer] needs order for Bi-pap w settingsas well as - Reg O2 concentrator, and personal concentrator To [employer] [facility] If already sent pls disregard - ty [facility] HospitalPchdlzfgxc90-17-0874 Miscellaneous Notes* Telephone Encounter - Fabricio Lange - 01/25/2025 3:36 PM EDT Friend called- Norma has gone without Bi-pap x3 days - she said [employer] needs order for Bi-pap w settingsas well as - Reg O2 concentrator, and personal concentrator To [employer] [facility] If already sent pls disregard - ty documented in this encounterSaint Luke's East HospitalPurzfhczep49-17-4838 Miscellaneous Notes* Perioperative Nursing Note - Patricia Huertas RN - 01/03/2025 3:50 PM EDT Preoperative Education Checklist- General Surgery date: 01/04/25 Surgery time: 1000 Arrival time: 0900 1. Bring a photo ID and your insurance card with you the day of surgery. You will check in at the main lobby of the [facility]- registration desk is straight ahead as soon as you walk in. Tell them you are here for surgery. 2. If you have a Living Will/Durable Power of Electrical Superintendent for Health Care that is not on [...] after you have bathed. 5. NO nail mexican/acrylic on at least one finger. If you are having a hand, wrist or foot surgery then all nail mexican and artificial/acrylic nails must be removed from [...] please call the Preadmission Testing office at [phone], Mon.-Fri. 7 a.m.-3 p.m. Leave a voicemail [...] Stop taking 0 days prior to procedure vuushrbypz-kfbnejoj-ewpvtxpnid (BREZTRI AEROSPHERE) 160-9-4.8 mcg/actuation HFA aerosol inhaler [...] days prior to procedure documented in this encounterMemorial Hospital09-09-2025 Nurse Note* Perioperative Nursing Note - Patricia Huertas RN - 01/03/2025 3:50 PM EDT Preoperative Education Checklist- General Surgery date: 01/04/25 Surgery time: 1000 Arrival time: 0900 1. Bring a photo ID and your insurance card with you the day of surgery. You will check in at the main lobby of the [facility]- registration desk is straight ahead as soon as you walk in. Tell them you are here for surgery. 2. If you have a Living Will/Durable Power of Electrical Superintendent for Health Care that is not on [...] after you have bathed. 5. NO nail mexican/acrylic on at least one finger. If you are having a hand, wrist or foot surgery then all nail mexican and artificial/acrylic nails must be removed from [...] please call the Preadmission Testing office at [phone], Mon.-Fri. 7 a.m.-3 p.m. Leave a voicemail [...] Stop taking 0 days prior to procedure hefjlsgnxj-cashurpo-oofpmydgbj (BREZTRI AEROSPHERE) 160-9-4.8 mcg/actuation HFA aerosol inhaler [...] Stop taking 0 days prior to procedure [facility]09-09-2025 Telephone encounter Note* Telephone Encounter - Magali Kelly - 01/03/2025 9:36 AM EDT Pt gets bi-pap machine from [employer] Pt was told that she due for a renewal order for her Bipap, also her condenser Phone number is for [facility] [id number] Miscellaneous Notes* Telephone Encounter - Magali Kelly - 01/03/2025 9:36 AM EDT Pt gets bi-pap machine from [employer] Pt was told that she due for a renewal order for her Bipap, also her condenser Phone number is for [employer] documented in this encounterSaint Luke's East HospitalVmgbdmjack06-75-0918 Miscellaneous Notes* Perioperative Nursing Note - Patricia Huertas RN - 12/19/2024 2:40 PM EDT Preoperative Education Checklist- General Surgery date: 12/20/24 Surgery time: 1000 Arrival time: 0900 1. Bring a photo ID and your insurance card with you the day of surgery. You will check in at the main lobby of the [facility]- registration desk is straight ahead as soon as you walk in. Tell them you are here for surgery. 2. If you have a Living Will/Durable Power of Electrical Superintendent for Health Care that is not on [...] after you have bathed. 5. NO nail mexican/acrylic on at least one finger. If you are having a hand, wrist or foot surgery then all nail mexican and artificial/acrylic nails must be removed from [...] please call the Preadmission Testing office at [phone], Mon.-Fri. 7 a.m.-3 p.m. Leave a voicemail [...] Stop taking 0 days prior to procedure agoqkmyfkt-acerduyx-yafmntlkxc (BREZTRI AEROSPHERE) 160-9-4.8 mcg/actuation HFA aerosol inhaler [...] days prior to procedure documented in this encounterMemorial Hospital08-25-2025 Nurse Note* Perioperative Nursing Note - Patricia Huertas RN - 12/19/2024 2:40 PM EDT Preoperative Education Checklist- General Surgery date: 12/20/24 Surgery time: 1000 Arrival time: 0900 1. Bring a photo ID and your insurance card with you the day of surgery. You will check in at the main lobby of the [facility]- registration desk is straight ahead as soon as you walk in. Tell them you are here for surgery. 2. If you have a Living Will/Durable Power of Electrical Superintendent for Health Care that is not on [...] after you have bathed. 5. NO nail mexican/acrylic on at least one finger. If you are having a hand, wrist or foot surgery then all nail mexican and artificial/acrylic nails must be removed from [...] please call the Preadmission Testing office at [phone], Mon.-Fri. 7 a.m.-3 p.m. Leave a voicemail [...] Stop taking 0 days prior to procedure lopwaxvjew-kewmjcig-ryntxrptwn (BREZTRI AEROSPHERE) 160-9-4.8 mcg/actuation HFA aerosol inhaler [...] Stop taking 0 days prior to procedure [facility]08-21-2025 History of Present illness Narrative* Rajni [...] Exam Vitals reviewed. Exam conducted with a chainstitch tunnel elastic operator present (Friend/POA). Constitutional: General: She is not [...] EGD; Future Stage 3a chronic kidney disease ([facility]) -patient now back on torsemide 20 [...] -further recommendations following testing documented in this encounterMemorial Hospital08-14-2025 Miscellaneous Notes* Telephone Encounter - Liz [...] disorder, major depressive episode ([facility]) Stage 3a chronic kidney disease ([facility]) Pulmonary hypertension ([facility]) Discharge Specialty: Other *Name of Discharging Facility: [facility] Date of Facility Discharge: 12/04/24-12/06/2024 Date of Interactive Contact and Name of Mine Equipment Design Engineer: 12/08/24 0956 Unable to reach patient. M [...] AM EDT Message noted. documented in this encounterMemorial Hospital08-14-2025 Telephone encounter Note* Telephone Encounter - [...] Specialty: Other *Name of Discharging Facility: [facility] Date of Facility Discharge: 12/04/24-12/06/2024 Date of Interactive Contact and Name of Mine Equipment Design Engineer: 12/08/24 0956 Unable to reach patient. LVM [...] Other Services Utilized/Needed by the Patient: NA [facility]08-14-2025 Telephone encounter Note* Telephone Encounter - Rajni Steiner DO - 12/08/2024 7:48 AM EDT Message noted. [facility]08-06-2025 Miscellaneous Notes* Telephone Encounter - Fareed Norton RN - 11/30/2024 8:25 AM EDT ----- Message from PRAKASH Espinosa sent at 11/30/2024 11:52 AM EDT ----- Have her repeat labs again next week ----- Message ----- From: Kacey Sims RN Sent: 11/30/2024 8:28 AM EDT To: PRAKASH Linares Seen Thursday in [facility], restarted torsemide and you wanted labs in 1 week. She completed thenext day. ----- Message ----- From: Lab, Background User Sent: 11/29/2024 7:25 PM EDT To: [facility] Clinical Staff documented in this encounterMemorial Hospital08-06-2025 Telephone encounter Note* Telephone Encounter - Fareed Norton RN - 11/30/2024 8:25 AM EDT ----- Message from PRAKASH Espinosa sent at 11/30/2024 11:52 AM EDT ----- Have her repeat labs again next week ----- Message ----- From: Kacey Sims RN Sent: 11/30/2024 8:28 AM EDT To: PRAKASH Linares Seen Thursday in [facility], restarted torsemide and you wanted labs in 1 week. She completed thenext day. ----- Message ----- From: Lab, Background User Sent: 11/29/2024 7:25 PM EDT To: [facility] Clinical Staff [facility] History of Present illness Narrative* PRAKASH Linares - 11/28/2024 2:00 PM EDT Images from the original note were not included. [facility] FAILURE [facility] Patient: Monet Recinos Date of : 1960 Age: 64 y.o. Date of Encounter: 11/28/2024 REASON FOR VISIT: Chronic heart failure. Dear Rajni Steiner Jr, DO & Rajni Steiner DO We had the pleasure of seeing your patient, Monet Recinos, in the [facility] on 11/28/2024. Ms. Recinos [...] mouth in the morning. 90 tablet 3 djgnyowmoq-wjptsefs-njjzywxbax (BREZTRI AEROSPHERE) 160-9-4.8 mcg/actuation HFA aerosol inhaler [...] 42 mm per mercury 11/15 TTE 3. [place] coronary ASCVD status post CABG x4 08/15 [...] heart rates therefore will start her on Yyvcvg52 mg at nighttime Get blood work in [...] Odessa Cook CNP [facility] This note was completed using a voice recyclable materials sorter system. Every effort was made to ensure accuracy. However, inadvertent computerized recyclable materials sorter errors may be present. PRAKASH Linares 11/28/24 [id number] * Jazmín Acevedo RN - 11/28/2024 2:00 PM EDT Instructed patient on daily weights, fluid restriction, and low sodium diet. Advised of s/s requiring ER treatment or to call the office. Heart failure education provided: No. Patient verbalized understanding. Pt scheduled for echo while in office. Instructions reviewed with pt. documented in this encounterMemorial Hospital08-04-2025 Instructions* Patient Instructions* PRAKASH Linares - [...] by calling the Heart Failure Clinic at [phone]. Please call 911 for emergencies. documented in this encounterMemorial Hospital07-14-2025 History of Present illness Narrative* Rajni [...] Exam Vitals reviewed. Exam conducted with a chainstitch tunnel elastic operator present (Friend/POA). Constitutional: General: She is not [...] in the morning., Disp: 90tablet, Rfl: 3 moreaygupu-mzhaciqr-qqgxswlxzg (BREZTRI AEROSPHERE) 160-9-4.8 mcg/actuation HFA aerosol inhaler, [...] Testing No results found. Rajni Steiner DO., [facility]: [phone] documented in this encounterMemorial Hospital07-14-2025 Evaluation note* Diagnosis Hiatal hernia with GERD- Primary Stage 3a chronic kidney disease ([facility] Patellar tendinitis of right knee Gastro-esophageal reflux disease without esophagitis Venous insufficiency of both lower extremities documented in this encounter [facility]07-[facility]2025 NoteFL UGI WITH ESOPHAGUS HISTORY: Nausea [...] by Kai Finn MD on 11/02/2024 10:14 [facility] 10-27-2024 History of Present illness Narrative* Rajni Steiner DO - 10/27/2024 4:15 PM EDT IM PROGRESS NOTE Patient - Monet Recinos Age - 64 y.o. - 1960 ASSESSMENT & PLAN 1. Type 2 diabetes mellitus with stage 3a chronic kidney disease, without long- term current use of insulin ([facility]) (Primary) - last A1c 6.5% -goals of [...] with preserved ejection fraction ([facility]) - GDMT: Aldactone, Jardiance, furosemide - will continue to wean off of propanolol over the next 2 weeks - at that time we can decide on replacement beta-georgi - propranoloL (INDERAL) 40 mg tablet; Take 1 tablet (40 mg total) by mouth in the morning. 4. Stage 3a chronic kidney disease ([facility]) - GFR ranges 45-54 over the past [...] daily. Unless she takes a dose of [place] along with the pantoprazole, she will get [...] Exam Vitals reviewed. Exam conducted with a chainstitch tunnel elastic operator present (Friend/POA). Constitutional: General: She is not [...] in the morning., Disp: 90tablet, Rfl: 3 maznihaxgx-eslrrmcd-paymyrikpd (BREZTRI AEROSPHERE) 160-9-4.8 mcg/actuation HFA aerosol inhaler, [...] Testing No results found. Rajni Steiner DO., [facility]: [phone] documented in this encounterMemorial Hospital07-03-2025 Evaluation note* Diagnosis Type 2 diabetes mellitus with stage 3a chronic kidney disease, without long-term current use of insulin ([facility])- Primary Venous insufficiency of both lower extremities Chronic heart failure with preserved ejection fraction ([facility]) Stage 3a chronic kidney disease ([facility]) Nausea and vomiting, unspecified vomiting type Arthritis of left sacroiliac joint Cervicogenic headache Headache documented in this encounter [facility]06[facility] History of Present illness Narrative* Rajni Cardoso Obdulia, DO - 10/07/2024 11:30 AM EDT IM PROGRESS NOTE Patient - Monet Recinos Age - 64 [facility]. - 1960 [id number] ASSESSMENT & PLAN 1. Cervicogenic headache (Primary) [...] with preserved ejection fraction ([facility]) -GDMT: Jardiance, propanolol, spironolactone -may need further [...] Exam Vitals reviewed. Exam conducted with a chainstitch tunnel elastic operator present (Friend/POA). Constitutional: General: She is not [...] in the morning., Disp: 90tablet, Rfl: 3 kmxxjwvwdh-kccjwpiw-rcawdhfjjl (BREZTRI AEROSPHERE) 160-9-4.8 mcg/actuation HFA aerosol inhaler, [...] Testing No results found. Rajni Steiner DO., [facility]: [phone] documented in this encounterBrattleboro Memorial HospitalWoopie [id number] History of Present illness Narrative* Sydnie Guerrero [...] needed for wheezing, Disp:18 g, Rfl: 5 Pdtmikv-Uofvuzarubk-Bwmuxosqvw (Breztri Aerosphere) 160-9-4.8 MCG/ACT aerosol, Inhale 2 [...] disorder Breast injury CAD (coronary artery disease) ([facility]) Cervical disc disorder Chronic kidney disease Cigarette nicotine dependence in remission 10/16/2020 Congestive heart failure (CHF) ([facility]) COPD (chronic obstructive pulmonary disease) ([facility]) COVID-19 04/29/2023 Dementia ([facility]) Dependence on other enabling machines and devices 04/29/2023 Depression ([facility]) Difficulty in walking, not elsewhere classified 04/28/2023 Former smoker 09/26/2022 GERD (gastroesophageal reflux disease) Hyperlipidemia ([facility]) 04/29/2023 Liver disease Lumbosacral disc disease Memory loss Myocardial infarction ([facility]) Nicotine dependence 04/29/2023 Obesity with body mass index 30 or greater 05/14/2023 BONY (obstructive sleep apnea) Osteoarthritis Panic disorder ([facility]) Personal history of nicotine dependence 04/29/2023 Pneumonia, unspecified organism 04/29/2023 Polyneuropathy, unspecified 04/29/2023 Presence of aortocoronary bypass graft 04/29/2023 Psoriasis Psoriasis, unspecified 05/02/2023 PTSD (post-traumatic stress disorder) ([facility]) Shortness of breath Solitary pulmonary nodule 04/29/2023 Stage 3a chronic kidney disease (HCC) ([facility]) 07/07/2024 Thoracic disc disease Unspecified dementia, mild, without behavioral disturbance, psychotic disturbance, mood disturbance, and anxiety ([facility]) 04/30/2023 Ventricular tachycardia ([facility]) 09/20/2024 Documented on 08/23/2020 Visual impairment Weakness [...] Chronic obstructive pulmonary disease, unspecified COPD type ([facility]) - albuterol HFA 90 mcg/act inhaler; Inhale 2 puffs every 4 (four) hours if needed for wheezing - Pmremyb-Clnnfyuhbjq-Xmsjrbxywc (Breztri Aerosphere) 160-9-4.8 MCG/ACT aerosol; Inhale 2 puffs in the morning and 2 puffs before bedtime. Chronic respiratory failure with hypoxia and hypercapnia ([facility]) BONY (obstructive sleep apnea) COPD -- [...] Sydnie Guerrero DO documented in this encounterSaint Luke's East [id number] History of Present illness Narrative* Myriam Peacock MD - 09/01/2024 11:15 AM EDT Monetnakia Recinos Date of visit: 09/01/2024 Date of : 1960 Age: 64 y.o. Patient Active Problem List Diagnosis NSTEMI (non-ST elevated myocardial infarction) ([facility]) Obesity (BMI 30-39.9) Atherosclerotic heart disease of [place] coronary artery with other forms of angina pectoris Hyperglycemia Cigarette nicotine dependence in remission Depression Liver disease Visual impairment BONY treated with BiPAP Chronic heart failure with preserved ejection fraction ([facility]) Essential hypertension Hx of hyperlipidemia Former smoker Agoraphobia Anxiety Chipped tooth GERD (gastroesophageal reflux disease) Low back pain Osteoarthritis PTSD (post-traumatic stress disorder) Bipolar 2 disorder, major depressive episode ([facility]) Cannabis use disorder, mild, abuse Major depressive disorder Panic disorder Weakness BMI 40.0-44.9, adult ([facility]) Chronic respiratory failure with hypoxia and hypercapnia ([facility]) Closed wedge compression fracture of T6 vertebra with routine healing Arthritis of left sacroiliac joint Chronic obstructive pulmonary disease, unspecified COPD type ([facility]) Stage 3a chronic kidney disease ([facility]) Allergies Allergen Reactions Penicillins Anaphylaxis Other Reaction(s): [...] mouth in the morning. 90 tablet 3 xhbcphtkog-zdlyuzln-zeiosxalyh (BREZTRI AEROSPHERE) 160-9-4.8 mcg/actuation HFA aerosol inhaler [...] longer uses a BIPAP 01/28/23 Bipolar disorder ([facility]) Breast injury CHF (congestive heart failure) ([facility]) Chipped tooth Chronic kidney disease COPD (chronic obstructive pulmonary disease) ([facility]) Coronary artery disease Dementia ([facility]) Depression Diarrhea frequent bouts /involuntary Dizziness Fracture, vertebral, lumbar closed ([facility]) GERD (gastroesophageal reflux disease) Headache History of coronary artery bypass graft 08/14/2020 Liver disease Low back pain Lump or mass in breast Memory loss Myocardial infarction ([facility]) Apr 2009, swith stent placement Obesity BONY treated with BiPAP 07/31/2022 Osteoarthritis Panic disorder Psoriasis PTSD (post-traumatic stress disorder) Pulmonary emboli ([facility]) Rib fracture 09/2023 lt Rotator cuff tear L Shortness of breath Sleep apnea Visual impairment glasses No data recorded No data recorded No data recorded Past Surgical History: Procedure Laterality Date BREAST BIOPSY BREAST CYST EXCISION Cardiac catheterization N/A 01/09/2020 Performed by Yefri Khan MD at [facility] Cardiac catheterization-LV Cors N/A 08/06/2020 Performed by Hazel Painting MD at [facility] SECTION CHOLECYSTECTOMY COLONOSCOPY N/A 04/03/2017 Performed by Jose Beaver MD at [facility] Coronary angiogram and left ventricular gram/pressure N/A 01/09/2020 Performed by Yefri Khan MD at [facility] CORONARY ANGIOPLASTY WITH STENT PLACEMENT CORONARY ARTERY BYPASS GRAFT X4/ [place]/ SVG X3 / RIGHT UPPER LEG OPEN VEIN HARVEST/ LEFT UPPER LEG OPEN VEING HARVEST /GINETTE N/A 08/13/2020 Performed by Leroy Meng MD at [facility] Drug eluting stent left anterior descending N/A 01/09/2020 Performed by Yefri Khan MD at [facility] EXCISION SEROMA LOWER EXTREMITY Left 10/07/2022 Performed by Victor Hugo Vincent DO at [facility] Intravascular ultrasound coronary N/A 08/06/2020 Performed by Hazel Painting MD at [facility] Intravascular ultrasound coronary N/A 01/09/2020 Performed by Yerfi Khan MD at [facility] NOTCHARGED/Thrombolysis arterial initial treatment N/A 01/09/2020 Performed by Yefri Khan MD at [facility] TONSILLECTOMY Family History [...] min Stress: No Stress Concern Present (07/25/2023) [facility] [place] [facility] [employer] [facility] - Occupational Stress Questionnaire Feeling of Stress : Only a little Recent Concern: Stress - Stress Concern Present (07/25/2023) [facility] [place] [facility] [employer] [facility] - Occupational Stress Questionnaire Feeling of Stress : Very much Social Connections: Moderately Isolated (07/25/2023) Social Connection and Isolation Panel [NHANES] Frequency of Communication with Friends and Family: Three times a week Frequency of Social Gatherings with Friends and Family: Three times a week Attends Protestant Services: More than 4 times per year [...] Referring Physician: Rajni Steiner DO [address] [place] [address] documented in this encounterMemorial Hospital03-21-2025 Miscellaneous Notes* Telephone Encounter - Ching Gay RN - 07/15/2024 8:20 AM EDT Last OV 02/19/24 Last CMP 07/07/24.slm documented in this [facility]03-[facility] Telephone encounter Note* Telephone Encounter - Ching Gay RN - 07/15/2024 8:20 AM EDT Last OV 02/19/24 Last CMP 07/07/24.slm [place] [id number] History of Present illness Narrative* Rajni Steiner, [...] Chronic obstructive pulmonary disease, unspecified COPD type ([facility]) -COPD GOLD class B -overall stable -continue Breztri 2 puffs b.i.d. with p.r.n. albuterol 3. Stage 3a chronic kidney disease ([facility]) -GFR ranges 44-49 over the past 6 months -renal protective strategies were reviewed with the patient -continue to avoid NSAIDs, gabapentin -repeat electrolytes, kidney function and GFR to assess for improvement or worsening - CBC auto differential; Future - Comprehensive metabolic panel; Future 4. Chronic respiratory failure with hypoxia and hypercapnia ([facility]) -GOLD class B -patient with stationary and portable oxygen at home -I encouraged her to wear the portable oxygen as much as possible. -most desaturations, when she is active, and this is when she needs it the most. 5. Chronic heart failure with preserved ejection fraction ([facility]) -improved -no longer requiring loop diuretic -GDMT includes Jardiance, spironolactone, propanolol [place] 6. Bipolar 2 disorder, major depressive episode ([facility]) -sees Psychiatry on a routine basis -current regimen includes venlafaxine, Lamictal, doxepin, clonazepam, aripiprazole 7. BMI 40.0-44.9, adult ([facility]) -ongoing problem which has worsened due to missing some of her medications -given her overall CV risk, may benefit from initiation of GLP 1 treatment 8. Atherosclerotic heart disease of [place] coronary artery with other forms of angina pectoris ([facility]) -currently taking atorvastatin 80 mg daily -most [...] Exam Vitals reviewed. Exam conducted with a chainstitch tunnel elastic operator present (Friend/POA). Constitutional: General: She is not [...] in the morning., Disp: 90tablet, Rfl: 3 ozkcmqsgam-qhbujjbm-bgadopnwtw (BREZTRI AEROSPHERE) 160-9-4.8 mcg/actuation HFA aerosol inhaler, [...] Testing No results found. Rajni Steiner DO., [facility]: [phone] documented in this encounterMemorial Hospital12-03-2024 History of Present illness Narrative* Rajni Steiner DO - 03/29/2024 3:15 PM EST IM PROGRESS NOTE Patient - Monet Recinos Age - 63 y.o. - 1960 [id number] ASSESSMENT & PLAN Video Visit via Real-time Synchronous Audiovisual Provider Location: [facility] - [facility]ILY MEDICINE [address] [facility] [id number] Patient Location: Patient's home Video Visit Consent [...] that there are some limitations compared to [id number]-it-[id number] evaluations. The patient consented to the presence [...] visit. Physical Exam Exam conducted with a chainstitch tunnel elastic operator present (Friend/POA). Constitutional: General: She is not [...] THE MORNING, Disp: 90 tablet, Rfl: 3 xjfepyaalp-ybtasnut-zoxhfxzhha (BREZTRI AEROSPHERE) 160-9-4.8 mcg/actuation HFA aerosol inhaler, [...] Testing No results found. Rajni Steiner DO., [facility]: [phone] documented in this encounterMemorial Hospital12-03-2024 Miscellaneous Notes* Telephone Encounter - Monica [...] a video visit today documented in this encounterMemorial Hospital12-03-2024 Telephone encounter Note* Telephone Encounter - Monica Johnston CMA - 03/29/2024 9:13 AM EST Pts friend called stated pt is having bursing on her legs for no reason , they would like to know if something to be concerned about or maybe a side effect from the pregabalin ? [facility] [employer] [id number] Telephone encounter Note* Telephone Encounter - Rajni Steiner DO - 03/29/2024 9:13 AM EST Message noted. What is happening to her legs? [facility] Telephone encounter Note* Telephone Encounter - Monica Johnston CMA - 03/29/2024 9:13 AM EST They are brusing , she's not hirting or bumping anything they are just popping up [facility]12-[facility] Telephone encounter Note* Telephone Encounter - Rajni Steiner DO - 03/29/2024 9:13 AM EST Message noted. This is not a side effect from pregabalin. Is she taking aspirin for any reason? [facility]12-[facility] Telephone encounter Note* Telephone Encounter - Monica Johnston CMA - 03/29/2024 9:13 AM EST She's not taking any aspirin lately bc she's out . She did take some excedrin today . They started about a week ago. [facility]12-03-2024 Telephone encounter Note* Telephone Encounter - Monica Johnston CMA - 03/29/2024 9:13 AM EST She is worried they are blood clots , they just want to know if its something to worry about ? Friend also just stated that she is starting to swelling up again [facility]12-03-2024 Telephone encounter Note* Telephone Encounter - Rajni Steiner DO - 03/29/2024 9:13 AM EST Message noted. Hard to say without seeing it. We can put her in a slot tomorrow, or try a video visit today [facility]11-21-2024 History of Present illness Narrative* Sydnie Guerrero [...] for her, however she states that the [employer] would not accept his testing. She is [...] tablet Take 80 mg by mouth Daily Ovarkbl-Mfjwludqbyq-Btnrblzmrj (Breztri Aerosphere) 160-9-4.8 MCG/ACT aerosol Inhale calcitonin, [...] visit. Past Medical History: Diagnosis Date Agoraphobia ([facility]) Angina at rest ([facility] Anxiety BiPAP (biphasic positive airway pressure) dependence Bipolar disorder ([facility]) Breast injury CAD (coronary artery disease) ([facility]) Cervical disc disorder Chronic kidney disease Cigarette nicotine dependence in remission 10/16/2020 Congestive heart failure (CHF) ([facility]) COPD (chronic obstructive pulmonary disease) ([facility]) COVID-19 04/29/2023 Dementia ([facility]) Dependence on other enabling machines and devices 04/29/2023 Depression ([facility]) Difficulty in walking, not elsewhere classified 04/28/2023 Former smoker 09/26/2022 GERD (gastroesophageal reflux disease) Liver disease Lumbosacral disc disease Memory loss Myocardial infarction ([facility]) BONY (obstructive sleep apnea) Osteoarthritis Panic disorder ([facility]) Personal history of nicotine dependence 04/29/2023 Pneumonia, unspecified organism 04/29/2023 Polyneuropathy, unspecified 04/29/2023 Presence of aortocoronary bypass graft 04/29/2023 Psoriasis ([facility]) Psoriasis, unspecified ([facility]) 05/02/2023 PTSD (post-traumatic stress disorder) ([facility]) Shortness of breath Solitary pulmonary nodule 04/29/2023 Thoracic disc disease Unspecified dementia, mild, without behavioral disturbance, psychotic disturbance, mood disturbance, and anxiety ([facility]) 04/30/2023 Visual impairment Weakness 05/28/2023 Past [...] send a script for a POC to [facility] today. Tobacco use -- she does continue to smoke on a daily basis. She is currently at a half pack or less. We did have a 4 minute discussion regarding the importance of smoking cessation at today's office visit. Follow up in about 3 months (around 06/17/2024) for COPD, in [place] office. Sydnie Guerrero DO documented in this encounterSaint Luke's East [id number] History of Present illness Narrative* Rajni Steiner [...] 0 3. Stage 3a chronic kidney disease ([facility]) -GFR ranges from 36 to 53 over the past year. -renal protective strategies were reviewed with patient, in particular avoidance of NSAIDs and Welch 2 inhibitors -we are evaluating and reducing or eliminating all prescription medications which could affect the kidney -continue to monitor. ACR ordered today - CBC auto differential; Future 4. Chronic heart failure with preserved ejection fraction ([facility]) -GDMT: Jardiance 10 mg daily, propanolol 80 mg daily, spironolactone 25 mg daily, torsemide. -continue home oxygen 5. Atherosclerotic heart disease of [place] coronary artery with other forms of angina pectoris ([facility]) -currently atorvastatin 80 mg daily -repeat [...] Exam Vitals reviewed. Exam conducted with a chainstitch tunnel elastic operator present (Friend/POA). Constitutional: General: She is not [...] THE MORNING, Disp: 90 tablet, Rfl: 3 iyghghqeuf-hoqvwetm-rpacdnycbi (BREZTRI AEROSPHERE) 160-9-4.8 mcg/actuation HFA aerosol inhaler, [...] on 12/17/2023 11:39 AM Rajni Steiner DO., [facility]: [phone] documented in this [facility]10[facility] Miscellaneous Notes* Telephone Encounter - Monica Johnston [...] EDT Message noted. Yes documented in this [facility]28[facility]2024 Telephone encounter Note* Telephone Encounter - Monica Johnston CMA - 02/22/2024 12:27 PM EDT Pts' friend norma called was wondering what you were going to do with the pregabalin there were no refills , pt stated the gabapentin worked better but needed to know if you were going to refill the pregabalin or in crease the dosage ? [facility] Telephone encounter Note* Telephone Encounter - Rajni Steiner DO - 02/22/2024 12:27 PM EDT Message noted. Needs a recheck appointment to discuss [facility] Telephone encounter Note* Telephone Encounter - Cathleen Arreola - 02/22/2024 12:27 PM EDT Comes in 03/07 is that okay? [facility]10[facility] Telephone encounter Note* Telephone Encounter - Rajni Steiner DO - 02/22/2024 12:27 PM EDT Message noted. Yes [facility]10-25-2024 History of Present illness Narrative* Saqib Giles MD - 02/19/2024 10:45 AM EDT Monet Recinos Date of visit: 02/19/2024 Date of : 1960 Age: 63 y.o. Patient Active Problem List Diagnosis NSTEMI (non-ST elevated myocardial infarction) ([facility]) Obesity (BMI 30-39.9) Atherosclerotic heart disease of [place] coronary artery with other forms of angina pectoris ([facility]) Hyperglycemia Cigarette nicotine dependence in remission Depression Liver disease Visual impairment BONY treated with BiPAP Chronic heart failure with preserved ejection fraction ([facility] Essential hypertension Hx of hyperlipidemia Former smoker Agoraphobia Anxiety Chipped tooth GERD (gastroesophageal reflux disease) Low back pain Osteoarthritis PTSD (post-traumatic stress disorder) Bipolar 2 disorder, major depressive episode ([facility] Cannabis use disorder, mild, abuse Major depressive disorder Panic disorder Weakness BMI 40.0-44.9, adult ([facility] Chronic respiratory failure with hypoxia and hypercapnia ([facility]) Acute pulmonary embolism without acute cor pulmonale, unspecified pulmonary embolism type ([facility]) Closed wedge compression fracture of T6 vertebra [...] MOUTH IN THE MORNING 90 tablet 3 sjrdxxlwal-rutswytn-dskbmaxbgf (BREZTRI AEROSPHERE) 160-9-4.8 mcg/actuation HFA aerosol inhaler [...] History: Diagnosis Date Agoraphobia Angina at rest ([facility]) Anxiety BiPAP (biphasic positive airway pressure) dependence Patient states she no longer uses a BIPAP 01/28/23 Bipolar disorder ([facility]) Breast injury CHF (congestive heart failure) ([facility]) Chipped tooth Chronic kidney disease COPD (chronic obstructive pulmonary disease) ([facility]) Coronary artery disease Dementia ([facility]) Depression Diarrhea frequent bouts /involuntary Dizziness Fracture, vertebral, lumbar closed ([facility]) GERD (gastroesophageal reflux disease) Headache History of coronary artery bypass graft 08/14/2020 Liver disease Low back pain Lump or mass in breast Memory loss Myocardial infarction ([facility]) Apr 2009, swith stent placement Obesity BONY treated with BiPAP 07/31/2022 Osteoarthritis Panic disorder Psoriasis PTSD (post-traumatic stress disorder) Pulmonary emboli ([facility]) Rib fracture 09/2023 lt Rotator cuff tear L Shortness of breath Sleep apnea Visual impairment glasses No data recorded No data recorded No data recorded Past Surgical History: Procedure Laterality Date BREAST BIOPSY BREAST CYST EXCISION Cardiac catheterization N/A 01/09/2020 Performed by Yefri Khan MD at [facility] Cardiac catheterization-LV Cors N/A 08/06/2020 Performed by Hazel Paitning MD at [facility] SECTION CHOLECYSTECTOMY COLONOSCOPY N/A 04/03/2017 Performed by Jose Beaver MD at [facility] Coronary angiogram and left ventricular gram/pressure N/A 01/09/2020 Performed by Yefri Khan MD at [facility] CORONARY ANGIOPLASTY WITH STENT PLACEMENT CORONARY ARTERY BYPASS GRAFT X4/ THOMPSON/ SVG X3 / RIGHT UPPER LEG OPEN VEIN HARVEST/ LEFT UPPER LEG OPEN VEING HARVEST /GINETTE N/A 08/13/2020 Performed by Leroy Meng MD at [facility] Drug eluting stent left anterior descending N/A 01/09/2020 Performed by Yefri Khna MD at [facility] EXCISION SEROMA LOWER EXTREMITY Left 10/07/2022 Performed by Victor Hugo Vincent DO at [facility] Intravascular ultrasound coronary N/A 08/06/2020 Performed by Hazel Painting MD at [facility] Intravascular ultrasound coronary N/A 01/09/2020 Performed by Yefri Khan MD at [facility] NOTCHARGED/Thrombolysis arterial initial treatment N/A 01/09/2020 Performed by Yefri Khan MD at [facility] TONSILLECTOMY Family History [...] min Stress: No Stress Concern Present (07/25/2023) [facility] [place] [facility] - Occupational Stress Questionnaire Feeling of Stress : Only a little Recent Concern: Stress - Stress Concern Present (07/25/2023) [facility] [place] [facility] - Occupational Stress Questionnaire Feeling of Stress : Very much Social Connections: Moderately Isolated (07/25/2023) Social Connection and Isolation Panel [NHANES] Frequency of Communication with Friends and Family: Three times a week Frequency of Social Gatherings with Friends and Family: Three times a week Attends Protestant Services: More than 4 times per year [...] Referring Physician: Rajni Steiner DO [address] [place] [address] documented in this encounterMemorial Hospital10-[facility]-2024 Miscellaneous Notes* Telephone Encounter - Vicki Bailey CMA - 02/18/2024 9:30 AM EDT Called patient to remind them to bring their most current copy of their medication list with them to their appt. Patient verbalizes understanding. documented in this encounterMemorial Hospital10-[facility]-2024 Telephone encounter Note* Telephone Encounter - Vicki Bailey CMA - 02/18/2024 9:30 AM EDT Called patient to remind them to bring their most current copy of their medication list with them to their appt. Patient verbalizes understanding. [facility] TeamLease [id number] History of Present illness Narrative* Eusebia Huertas, [...] nerve blocks in the past. Last saw [facility] pain clinic 09/2022, PT and aquatic therapy ordered , also RX for zanaflex. Prior treatment: pain clinic [facility] 09/2022, [facility] ER 08/27, MRI T-spine 09/10/23, calcitonin NS, norco, Lumbar MRI [facility] 11/27/22, LT ST Trigger point injx [...] tablet Take 80 mg by mouth Daily Xjjidfx-Pbiftpxvgpe-Lrczxcywij (Breztri Aerosphere) 160-9-4.8 MCG/ACT aerosol Inhale calcitonin, [...] HISTORY: Past Medical History: Diagnosis Date Agoraphobia ([facility]) Angina at rest ([facility]) Anxiety BiPAP (biphasic positive airway pressure) dependence Bipolar disorder ([facility]) Breast injury CAD (coronary artery disease) ([facility]) Cervical disc disorder Chronic kidney disease Congestive heart failure (CHF) ([facility]) COPD (chronic obstructive pulmonary disease) ([facility] Dementia ([facility]) Depression ([facility]) GERD (gastroesophageal reflux disease) Liver disease Lumbosacral disc disease Memory loss Myocardial infarction ([facility]) BONY (obstructive sleep apnea) Osteoarthritis Panic disorder ([facility]) Psoriasis ([facility]) PTSD (post-traumatic stress disorder) ([facility]) Shortness of breath Thoracic disc disease [...] Huertas/guido Huertas D.O. documented in this encounterSaint Luke's East [id number] Miscellaneous Notes* Telephone Encounter - Fior Scott CMA - 02/03/2024 3:42 PM EDT Requesting a referral to a new generator operator and said she would explain when we c all back. I called back and got no answer and mailbox is full. * Telephone Encounter - Monica Johnston CMA - 02/03/2024 3:42 PM EDT Pt called back stated she really needs a referral for a new generator operator * Telephone Encounter - Rajni Steiner DO - 02/03/2024 3:42 PM EDT Message noted. Please try again. We need to know which generator operator is on her insurance plan in order to make a referral. * Telephone Encounter - Cathleen Arreola - 02/03/2024 3:42 PM EDT LM on VM * Telephone Encounter - Sofya Coe CMA - 02/03/2024 3:42 PM EDT Patient's family called back and they need a referral to Dr. Guerrero [address] [place], [place] * Telephone Encounter - Rajni Steiner DO - 02/03/2024 3:42 PM EDT Message noted. The referral was sent today. She can call and schedule at any time. * Telephone Encounter - Cathleen Arreola - 02/03/2024 3:42 PM EDT Referral sent documented in this encounterMemorial Hospital10-09-2024 Telephone encounter Note* Telephone Encounter - Fior Scott CMA - 02/03/2024 3:42 PM EDT Requesting a referral to a new generator operator and said she would explain when we c all back. I called back and got no answer and mailbox is full. [facility]10-[facility] Telephone encounter Note* Telephone Encounter - Monica Johnston CMA - 02/03/2024 3:42 PM EDT Pt called back stated she really needs a referral for a new generator operator [facility]10-[facility]-2024 Telephone encounter Note* Telephone Encounter - Rajni Steiner DO - 02/03/2024 3:42 PM EDT Message noted. Please try again. We need to know which generator operator is on her insurance plan in order to make a referral. [facility]10-[facility] Telephone encounter Note* Telephone Encounter - Cathleen Arreola - 02/03/2024 3:42 PM EDT LM on VM [facility]10[facility] Telephone encounter Note* Telephone Encounter - Sofya Coe CMA - 02/03/2024 3:42 PM EDT Patient's family called back and they need a referral to Dr. [id number] [place], [place] [facility]10-[facility]24 Telephone encounter Note* Telephone Encounter - Rajni Steiner DO - 02/03/2024 3:42 PM EDT Message noted. The referral was sent today. She can call and schedule at any time. [facility]10-[facility] Telephone encounter Note* Telephone Encounter - Cathleen Arreola - 02/03/2024 3:42 PM EDT Referral sent [facility]10-07-2024 Miscellaneous Notes* Telephone Encounter - Vandana Resendiz - 02/01/2024 9:49 AM EDT Patient called and said that she needs office to send POC to [facility] for her oxygen therapy. Manager Environmental Services let patient know that SE is not the one who wrote the order for the Oxygen therapy and that it was her primary care provider. [facility] [...] Umair Astrid - 02/01/2024 9:49 AM EDT Manager Environmental Services called patient in regards earlier call and left voicemail to return call to office for information about her oxygen therapy order. Office phone number provided. documented in this encounterChildren's Hospital for RehabilitationInformed Trades [id number] Telephone encounter Note* Telephone Encounter - Vandana Magana Astrid - 02/01/2024 9:49 AM EDT Patient called and said that she needs office to send POC to [facility] for her oxygen therapy. Manager Environmental Services let patient know that SE is not the one who wrote the order for the Oxygen therapy and that it was her primary care provider. [facility] that she had to have her oxygen therapy orders through pulmonary provider. Please Advise [facility] HospitalCrowdtap10-07-2024 Telephone encounter Note* Telephone Encounter - Shari Garcia RN - 02/01/2024 9:[address] Steiner, PCP office ordered oxygen for nocturnal only. DME will not provide POC for patient with order for nocturnal oxygen only. Second, PCP office can sign oxygen therapy orders as they were the ones that ordered it. Any physician. Not just pulmonary. Please call patient and update. [facility]10-07-2024 Telephone encounter Note* Telephone Encounter - Vandana Resendiz - 02/01/2024 9:49 AM EDT Manager Environmental Services called patient in regards earlier call and left voicemail to return call to office for information about her oxygen therapy order. Office phone number provided. Billetto [id number] History of Present illness Narrative* Eusebia Obregon [...] tablet Take 80 mg by mouth Daily Swetzts-Onvmdibmati-Jkaonipfds (Breztri Aerosphere) 160-9-4.8 MCG/ACT aerosol Inhale calcitonin, [...] (CMS/HCC) Psoriasis (CMS/HCC) PTSD (post-traumatic stress disorder) ([facility]) Shortness of breath Thoracic disc disease [...] Huertas/guido Huertas D.O. documented in this encounterSaint Luke's East [id number] Miscellaneous Notes* Telephone Encounter - Yadira Barrera RN - 01/20/2024 11:13 AM EDT Previous refill was set to no print New rx pended to pool for signature. Last ov 03/31/2023 Upcoming ov on 02/19/2024 Labs 12/17/2023 documented in this encounterMemorial Hospital09-25-2024 Telephone encounter Note* Telephone Encounter - Yadira Barrera RN - 01/20/2024 11:13 AM EDT Previous refill was set to no print New rx pended to pool for signature. Last ov 03/31/2023 Upcoming ov on 02/19/2024 Labs 12/17/2023 [facility] Miscellaneous Notes* Telephone Encounter - Anabela Cueva CMA - 01/19/2024 9:09 AM EDT LM to call back and RS appt from today documented in this encounterMemorial Hospital09-24-2024 Telephone encounter Note* Telephone Encounter - Anabela Cueva CMA - 01/19/2024 9:09 AM EDT LM to call back and RS appt from today [facility] Miscellaneous Notes* Telephone Encounter - Anabela Cueva CMA - 01/19/2024 8:40 AM EDT Message is left for patient to call back and reschedule her appt for today. documented in this [facility] Telephone encounter Note* Telephone Encounter - Anabela Cueva CMA - 01/19/2024 8:40 AM EDT Message is left for patient to call back and reschedule her appt for today. [facility] Miscellaneous Notes* Telephone Encounter - Vicki Bailey CMA - 01/18/2024 10:32 AM EDT Called patient to remind them to bring their most current copy of their medication list with them to their appt. Patient verbalizes understanding. documented in this encounterMemorial Hospital09-23-2024 Telephone encounter Note* Telephone Encounter - Vicki Bailey CMA - 01/18/2024 10:32 AM EDT Called patient to remind them to bring their most current copy of their medication list with them to their appt. Patient verbalizes understanding. [facility]09-23-2024 Miscellaneous Notes* Telephone Encounter - Caitie Cabello RN - 01/18/2024 9:06 AM EDT 03/31/23 ov with upcoming appt 01/19/24 01/04/24 BMP PC from pt needing refill documented in this encounterMemorial Hospital09-23-2024 Telephone encounter Note* Telephone Encounter - Caitie Cabello RN - 01/18/2024 9:06 AM EDT 03/31/23 ov with upcoming appt 01/19/24 01/04/24 BMP PC from pt needing refill [facility] History of Present illness Narrative* Eusebia [...] nerve blocks in the past. Last saw [facility] painclinic 09/2022, PT and aquatic therapy ordered , also RX for zanaflex. Prior treatment: pain clinic [facility] 09/2022, [facility] ER 08/27, MRI T-spine 09/10/23, calcitonin NS, norco, Lumbar MRI [facility] 11/27/22, LT ST Trigger point injx [...] tablet Take 80 mg by mouth Daily Lesdxmt-Afvrerospkt-Kkidxaobjt (Breztri Aerosphere) 160-9-4.8 MCG/ACT aerosol Inhale calcitonin, [...] HISTORY: Past Medical History: Diagnosis Date Agoraphobia ([facility]) Angina at rest ([facility]) Anxiety BiPAP (biphasic positive airway pressure) dependence Bipolar disorder ([facility]CC) Breast injury CAD (coronary artery disease) ([facility]) Chronic kidney disease Congestive heart failure (CHF) (CMS/HCC) COPD (chronic obstructive pulmonary disease) ([facility]CC) Dementia ([facility]/HCC) Depression ([facility]) GERD (gastroesophageal reflux disease) Liver disease Memory loss Myocardial infarction ([facility]) BONY (obstructive sleep apnea) Osteoarthritis Panic disorder ([facility]/HCC) Psoriasis ([facility]/HCC) PTSD (post-traumatic stress disorder) ([facility]) Shortness of breath Visual impairment ALLERGIES: [...] Huertas/guido Huertas D.O. documented in this encounterSaint Luke's East [id number] Miscellaneous Notes* Telephone Encounter - Sofya Coe CMA - 01/07/2024 8:21 AM EDT From Rajni Steiner DO To [employer] Sent and Delivered 01/04/2024 9:12 PM Your kidney and potassium levels are stable from previous No changes today Left this message on her confidential voice mail documented in this encounterChildren's Hospital for RehabilitationTora Trading Services09-12-2024 Telephone encounter Note* Telephone Encounter - Sofya Coe CMA - 01/07/2024 8:21 AM EDT From Rajni Steiner DO To Jorje, Monet Dhillon Sent and Delivered 01/04/2024 9:12 PM Your kidney and potassium levels are stable from previous No changes today Left this message on her confidential voice mail [facility] [id number] History of Present illness Narrative* Rajni Steiner [...] Exam Vitals reviewed. Exam conducted with a chainstitch tunnel elastic operator present (Friend/POA). Constitutional: General: She is not [...] THE MORNING, Disp: 90 tablet, Rfl: 3 dspbrvvjzy-wfiaxohj-dfmgkjgxrq (BREZTRI AEROSPHERE) 160-9-4.8 mcg/actuation HFA aerosol inhaler, [...] Detected Not Detected^Not Detected Final Specific gravity [facility] 12/17/2023 1.015 1.003 - 1.035 Final Leukocyte esterase [facility] 12/17/2023 Negative Negative^Negative Final Nitrite [facility] 12/17/2023 Negative Negative^Negative Final Ph 12/17/2023 6.0 5.0 - 8.5 Final Protein [facility] 12/17/2023 Negative Negative^Negative mg/dL Final Urine glucose [facility] 12/17/2023 250 (A) Negative^Negative mg/dL Final Ketones [facility] 12/17/2023 Negative Negative^Negative mg/dL Final Urobilinogen [facility] 12/17/2023 0.2 <1.1 eu/dL Final Bilirubin [facility] 12/17/2023 Negative Negative^Negative Final Hemoglobin [facility] 12/17/2023 Negative Negative^Negative Final Other [...] on 10/20/2023 8:22 PM Rajni Steiner DO., [facility] Office: [phone] documented in this encounterMemorial Hospital09-04-2024 Miscellaneous Notes* Telephone Encounter - Monica Johnston CMA - 12/30/2023 4:51 PM EDT Pts friend called stated pt needs an order for o2 sent to [facility] fax # [phone] * Telephone Encounter - Rajni Steiner DO - 12/30/2023 4:51 PM EDT Message noted. Order was written and faxed to [facility] today * Telephone Encounter - Monica Johnston CMA - 12/30/2023 4:51 PM EDT Ok thank you documented in this encounterMemorial Hospital09-04-2024 Telephone encounter Note* Telephone Encounter - Monica Johnston CMA - 12/30/2023 4:51 PM EDT Pts friend called stated pt needs an order for o2 sent to [facility] fax # [phone] [facility]09-04-[facility]24 Telephone encounter Note* Telephone Encounter - Rajni Steiner DO - 12/30/2023 4:51 PM EDT Message noted. Order was written and faxed to [facility] today [facility] HospitalEngezni [id number] Telephone encounter Note* Telephone Encounter - Monica Johnston CMA - 12/30/2023 4:51 PM EDT Ok thank you [facility] [employer] [id number] History of Present illness Narrative* Eusebia Huertas DO - 12/29/2023 10:45 AM EDTAssociated Order(s): Trigger Point Injection ([place] [address] [place] [address]): left gluteus tej Post-Procedure Diagnose(s): Trigger point of left side of body Images from the original note were not included. HISTORY OF PRESENT ILLNESS: Monet Recinos is an 63 y.o. @ female. Chief complaint Thoracic pain Thoracic: Intermittent back pain over the years with flare up thoracic pain 4 months ago (08/24/23) after a fall in [employer]. Tx at [facility] ER 08/27 with back pain, DX with compression FX T6 and PE-started on eliquis. Follow up with Dr Steiner, calcitonin and norco RX. MRI T-spine done at [facility] 09/10/23. She notes pain in thoracic spine is much improved. She is walking unassisted today. She uses walkeras needed. She is complaining of LT sided low back pain x 2-3 weeks. Taking TYL/IBU, no relief. Denies injury.Pain with sit to stand. Pain at HS. Denies radiation. Denies N/T. Injections and nerve blocks yearsago many years ago. Prior treatment: pain clinic years ago, [facility] ER /, MRI T-spine 09/10/23, calcitonin NS, [...] tablet Take 80 mg by mouth Daily Xotscuj-Agswztidkae-Zkrwxbqezg (Breztri Aerosphere) 160-9-4.8 MCG/ACT aerosol Inhale calcitonin, [...] HISTORY: Past Medical History: Diagnosis Date Agoraphobia ([facility]/HCC) Angina at rest ([facility]) Anxiety BiPAP (biphasic positive airway pressure) dependence Bipolar disorder ([facility]) Breast injury CAD (coronary artery disease) ([facility]) Chronic kidney disease Congestive heart failure (CHF) ([facility]/HCC) COPD (chronic obstructive pulmonary disease) ([facility]/HCC) Dementia ([facility]/HCC) Depression ([facility]) GERD (gastroesophageal reflux disease) Liver disease Memory loss Myocardial infarction ([facility]) BONY (obstructive sleep apnea) Osteoarthritis Panic disorder ([facility]/HCC) Psoriasis ([facility]/HCC) PTSD (post-traumatic stress disorder) ([facility]) Shortness of breath Visual impairment ALLERGIES: [...] of body M79.10 Trigger Point Injection (CPT 12837 [place] 70099): left gluteus tej 2. Compression fracture of T6 vertebra with routine healing, subsequent encounter S22.050D XR spine 3. Compression fracture of T8 vertebra with routine healing, subsequent encounter S22.060D 4. Osteoporotic compression fracture of vertebra with routine healing, subsequent encounter M80.88XD Trigger Point Injection (CPT 89987 or 20871): left gluteus tej on 12/29/2023 2:58 PM [...] Huertas/guido Huertas D.O. documented in this encounterSaint Luke's East [id number] Miscellaneous Notes* Telephone Encounter - Monica ELIAN [...] for [employer] , pts insurnace doesn't cover [employer]. So they have to send everything back [...] She gave me the phone number to [employer]: . Please call them to have them either fax us a O2 equipment order for me to complete, or get their fax number so I can send a new order for the oxygen equipment * Telephone Encounter - Tosin Reyes CMA - 12/24/2023 4:07 PM EDT There are 2 different number to contact for her. The CPAP is [phone] but they emailed me what they need for referral process. The oxygen is through [facility] and left them a message to fax something for the referral. * Telephone Encounter - Rajni Steiner DO - 12/24/2023 4:07 PM EDT Message noted. The CPAP number does not concern me, that is for the sleep clinic to handle However, I still have not received anything from [employer] documented in this encounterMemorial Hospital08-29-2024 Telephone encounter Note* Telephone Encounter - [...] for [employer] , pts insurnace doesn't cover [employer]. So they have to send everything back [facility] [employer] [id number] Telephone encounter Note* Telephone Encounter - Rajni [...] She gave me the phone number to [facility]: . Please call them to have them either fax us a O2 equipment order for me to complete, or get their fax number so I can send a new order for the oxygen equipment [facility] Telephone encounter Note* Telephone Encounter - Tosin Reyes CMA - 12/24/2023 4:07 PM EDT There are 2 different number to contact for her. The CPAP is [phone] but they emailed me what they need for referral process. The oxygen is through [facility] and left them a message to fax something for the referral. [facility] Telephone encounter Note* Telephone Encounter - Rajni Steiner DO - 12/24/2023 4:07 PM EDT Message noted. The CPAP number does not concern me, that is for the sleep clinic to handle However, I still have not received anything from [facility]2024 Miscellaneous Notes* Telephone Encounter - Johnna Cortes - 12/17/2023 10:37 AM EDT Received call from Tung at sleep lab that [facility] called there stating pt does not qualify for thecontinuous Oxygen to be bled in with PAP. Will set up with PAP only. Per Dr Meadows, pt's February appt needs to be moved up for new face to face and repeat home O2 eval. Routed to Maryellen to schedule.Spoke to Concepcion at [facility] to inform will be retesting pt in order to try to qualify her for the oxygen. * Telephone Encounter - GLORIA Scott - 12/17/2023 10:37 AM EDT Kymberly called patient and moved patient's from February to 01/14/2024 at 3pm with SE in the [place] office. * Telephone Encounter - Johnna Cortes - 12/17/2023 10:37 AM EDT Thanks documented in this encounterMemorial Hospital08-22-2024 Miscellaneous Notes* Telephone Encounter - Tosin Reyes CMA - 12/17/2023 10:37 AM EDT Patient called and O2 dropped to 70's overnight and now she can barely keep it up to 90. I directedher to the ER. * Telephone Encounter - Rajni Steiner DO - 12/17/2023 10:37 AM EDT Message noted. I agree documented in this encounterMemorial Hospital08-22-2024 Telephone encounter Note* Telephone Encounter - Johnna Cortes - 12/17/2023 10:37 AM EDT Received call from Tung at sleep lab that [facility] called there stating pt does not qualify for thecontinuous Oxygen to be bled in with PAP. Will set up with PAP only. Per Dr Meadows, pt's November appt needs to be moved up for new face to face and repeat home O2 eval. Routed to Maryellen to schedule.Spoke to Concepcion at [facility] to inform will be retesting pt in order to try to qualify her for the oxygen. [facility] Telephone encounter Note* Telephone Encounter - GLORIA Scott - 12/17/2023 10:37 AM EDT Kymberly called patient and moved patient's from February to 01/14/2024 at 3pm with SE in the [place] office. [facility]08-[facility] Telephone encounter Note* Telephone Encounter - Johnna Cortes - 12/17/2023 10:37 AM EDT Thanks [facility]08-[facility] Telephone encounter Note* Telephone Encounter - Tosin Reyes CMA - 12/17/2023 10:37 AM EDT Patient called and O2 dropped to 70's overnight and now she can barely keep it up to 90. I directedher to the ER. [facility]08-[facility] Telephone encounter Note* Telephone Encounter - Rajni Steiner DO - 12/17/2023 10:37 AM EDT Message noted. I agree [facility]08-20-2024 Miscellaneous Notes* Telephone Encounter - Johnna Cortes - 12/15/2023 1:43 PM EDT Message received from Vicki at [facility] that OON for PAP/ O2. Pt must use [employer] (fax number is location specific). Spoke to Ciarra at [facility] and for pt zip, she must use [place] location. Faxed all info to [phone] for setup with BiPAP and O2. Pt notified via phone/ my chart message also sent. Phnumber of [phone] also given to pt. documented in this encounterMemorial Hospital08-20-2024 Telephone encounter Note* Telephone Encounter - Johnna Cortes - 12/15/2023 1:43 PM EDT Message received from Vicki at [facility] that OON for PAP/ O2. Pt must use [employer] (fax number is location specific). Spoke to Ciarra at [facility] and for pt zip, she must use [place] location. Faxed all info to [phone] for setup with BiPAP and O2. Pt notified via phone/ my chart message also sent. Phnumber of [phone] also given to pt. [facility]08-[facility]-20[facility] Miscellaneous Notes* Telephone Encounter - Kaia Jovel MD - 12/10/2023 10:23 AM EDT Patient of Dr. Meadows, BiPAP 14/9 cm of water with 3L/min supplement oxygen recommended, order formcomplete in [place], please fax Results note sent to patient Titration study on 12/08/2023 (Lemrks=444.0 lbs; BMI=35.3 kg/m2) DIAGNOSIS: Obstructive Sleep Apnea [...] on a wedge cushion. documented in this encounterMemorial Hospital08-15-2024 Telephone encounter Note* Telephone Encounter - Kaia Jovel MD - 12/10/2023 10:23 AM EDT Patient of Dr. Meadows, BiPAP 14/9 cm of water with 3L/min supplement oxygen recommended, order formcomplete in [place], please fax Results note sent to patient Titration study on 12/08/2023 (Gpvjhb=107.0 lbs; BMI=35.3 kg/m2) DIAGNOSIS: Obstructive Sleep Apnea [...] elevated such as on a wedge cushion. [facility] Work Phone: 1(636) 832-754407-25-2024 Miscellaneous Notes* Telephone Encounter - Tosin Reyes [...] PM EDT Patient notified documented in this encounterMemorial Hospital07-25-2024 Telephone encounter Note* Telephone Encounter - Tosin Reyes CMA - 11/19/2023 4:56 PM EDT Patient has been getting shoulder injections thru Dr. Castro and now they are asking for a referral toortho. [facility] Telephone encounter Note* Telephone Encounter - Rajni Steiner DO - 11/19/2023 4:56 PM EDT Message noted. Who is looking for the referral? If she is already getting injections, why does she need a new referral? [facility] Telephone encounter Note* Telephone Encounter - Tosin Reyes CMA - 11/19/2023 4:56 PM EDT She has switched insurance and so they need a referral to Dr. Castro. [facility] Telephone encounter Note* Telephone Encounter - Rajni Steiner DO - 11/19/2023 4:56 PM EDT Message noted. I do not know what or why she is getting the injections for. I have not received any reports or feedback from Dr. Castro, therefore I am unable to make a referral. [facility] HospitalDa[facility] [id number] Telephone encounter Note* Telephone Encounter - Tosin Reyes CMA - 11/19/2023 4:56 PM EDT [facility] [id number] History of Present illness Narrative* Rajni Steiner DO - 11/02/2023 3:30 PM EDT IM PROGRESS NOTE Patient - Monet Recinos Age - 63 y.o. [facility] 1960 [id number] ASSESSMENT & PLAN 1. Venous insufficiency of both lower extremities -secondary to chronic diastolic heart failure, in conjunction with extended dependent positioning of the legs -is on maximum dose diuretics with torsemide 80-120 mg daily -at this time I advised the patient to elevate her legs 30-40 minutes every morning and afternoon, as well as at nighttime -will order zippered compression stockings through [employer] to allow her to be more independent [...] cor pulmonale, unspecified pulmonary embolism type ([facility]) -has completed 2/3 months of anticoagulation [...] 3 times a day. No longer taking [place]. Did see Orthopedic surgery in follow-up, and [...] Exam Vitals reviewed. Exam conducted with a chainstitch tunnel elastic operator present (Friend/POA). Constitutional: General: She is not [...] THE MORNING, Disp: 90 tablet, Rfl: 3 lqgeldhgmh-dtpwnrgc-nxhqlptasg (BREZTRI AEROSPHERE) 160-9-4.8 mcg/actuation HFA aerosol inhaler, [...] on 09/19/2023 12:42 AM Rajni Steiner DO., [facility] Office: [phone] documented in this encounterMemorial Hospital07-05-2024 Miscellaneous Notes* Telephone Encounter - Nuha Nichole RN - 10/30/2023 7:30 AM EDT OV 08/03/23 BMP 09/30/23 documented in this encounterMemorial Hospital07-05-2024 Telephone encounter Note* Telephone Encounter - Nuha Nichole RN - 10/30/2023 7:30 AM EDT OV 08/03/23 BMP 09/30/23 [facility]06-[facility]-2024 Miscellaneous Notes* Telephone Encounter - Daisha Marquez CMA - 10/07/2023 3:08 PM EDT ----- Message from Vcitor Hugo Vincent DO sent at 10/06/2023 11:58 AM EDT ----- Call and let her know that her ultrasound and mammogram were normal. If she still has problems she should come back to see me. ThanksDr. Cornell documented in this [facility]06-12-2024 Telephone encounter Note* Telephone Encounter - Daisha Marquez CMA - 10/07/2023 3:08 PM EDT ----- Message from Victor Hugo Vincent DO sent at 10/06/2023 11:58 AM EDT ----- Call and let her know that her ultrasound and mammogram were normal. If she still has problems she should come back to see me. Thanks, Dr. Cornell [facility]06-07-2024 Miscellaneous Notes* Telephone Encounter - Nuha Nichole RN - 10/02/2023 12:38 AM EDT OV 08/03/23 BMP 09/30/23 documented in this encounterMemorial Hospital06-07-2024 Telephone encounter Note* Telephone Encounter - Nuha Nichole RN - 10/02/2023 12:38 AM EDT OV 08/03/23 BMP 09/30/23 [facility]-20[facility] History of Present illness Narrative* Rajni Steiner, - 09/30/2023 1:30 PM EDT IM PROGRESS NOTE Patient - Monet Recinos Age - 63 y.o. - 1960 [id number] ASSESSMENT & PLAN 1. Closed wedge compression fracture of T6 vertebra with routine healing -reviewed orthopedic consult note with the patient, along with recommendations and goals of treatment -patient advised she cannot use ibuprofen, or any NSAID at the current time for her pain because ofher anticoagulation. -therefore, we will continue the [place] 5-325 b.i.d. pain relief longer than anticipated [...] hypoxia and hypercapnia ([facility]) -continue oxygen support nocturnally and during the day as needed -continue Breztri 2 daily - CBC auto differential; Future 5. Chronic heart failure with preserved ejection fraction ([facility]) -current GDMT includes Jardiance 10 mg [...] taking salmon calcitonin nasal spray, cyclobenzaprine, and Atlanta 5-325 b.i.d. the pain is improved from initial, but still present on a dailybasis associated with leaning against her back, or prolonged walking or standing. She was seen by Orthopedic surgery regarding cough, but continued conservative treatment was recommended especially in light her current anticoagulation status. She is taking 4157-8375 mg ibuprofen daily try and help her [...] Exam Vitals reviewed. Exam conducted with a chainstitch tunnel elastic operator present (Friend/POA). Constitutional: General: She is not [...] THE MORNING, Disp: 90 tablet, Rfl: 3 pogasoesls-hmfieqtj-cofavhgkgn (BREZTRI AEROSPHERE) 160-9-4.8 mcg/actuation HFA aerosol inhaler, [...] on 07/24/2023 10:05 PM Rajni Steiner DO., [facility]: [phone] documented in this encounterMemorial Hospital05-30-2024 History of Present illness Narrative* Kacey Lamb Kat, CLIENT PORTFOLIO MANAGER-[employer] SYSTEMS ADMINISTRATOR - 09/24/2023 11:00 AM EDT Subjective Patient [...] nursing note reviewed. Exam conducted with a chainstitch tunnel elastic operator present (cellars supervisor). Constitutional: General: She is in acute distress. [...] YONY Vazquez 09/24/23 1650 documented in this encounterMemorial Hospital05-15-2024 History of Present illness Narrative* Rajni [...] discharge medication. Patient had been admitted to [facility] because of chest pain. Was sharp [...] Exam Vitals reviewed. Exam conducted with a chainstitch tunnel elastic operator present (Friend/POA). Constitutional: General: She is not [...] treatment -no changes today documented in this encounterMemorial Hospital04-22-2024 Miscellaneous Notes* Telephone Encounter - Monica [...] only one here Thursday documented in this encounterMemorial Hospital04-22-2024 Telephone encounter Note* Telephone Encounter - Monica Johnston CMA - 08/17/2023 10:20 AM EDT Pt called stated that [facility] is waiting for a corrected RX for her portable O2 , stated it needs it sent today she is leaving town in the morning [facility]04-22-2024 Telephone encounter Note* Telephone Encounter - Rajni Steiner DO - 08/17/2023 10:20 AM EDT Message noted. It was corrected last week. Was it sent? [facility]04-22-2024 Telephone encounter Note* Telephone Encounter - Cathleen Arreola - 08/17/2023 10:20 AM EDT Will get it out today, was the only one here Thursday [facility]04-22-2024 Miscellaneous Notes* Telephone Encounter - Leona Gaffney - 08/17/2023 9:06 AM EDT 08/13 Order received Scheduled PAP @ [facility] on 12/06 My chart confirmation [facility] Medicare / Medicaid Pap Order and 06/25/23 Stephanie Wilson Notes Run with TCO2 monitoring, previously tried/failed CPAP. Low threshold to switch to BiPAP if patient intolerant documented in this encounterMemorial Hospital04-22-2024 Telephone encounter Note* Telephone Encounter - Leona Gaffney - 08/17/2023 9:06 AM EDT 08/13 Order received Scheduled PAP @ [facility] on 12/06 My chart confirmation [facility] Medicare / Medicaid Pap Order and 06/25/23 Stephanie Meadows Epic Notes Run with TCO2 monitoring, previously tried/failed CPAP. Low threshold to switch to BiPAP if patient intolerant [facility]04-18-2024 Miscellaneous Notes* Telephone Encounter - Kaia Jovel [...] (AHI (3%)=35.8 events/hour; AHI (4%)=13.1 events/hour; Dani SpO2=83.0%;Znmbec=986.0 lbs; BMI=38.2 kg/m2) DIAGNOSIS: Obstructive Sleep Apnea [...] FACILITATE THANKS documented in this encounterBrattleboro Memorial HospitalPRX04-18-2024 Telephone encounter Note* Telephone Encounter - Kaia [...] (AHI (3%)=35.8 events/hour; AHI (4%)=13.1 events/hour; Dani SpO2=83.0%;Izqhqm=026.0 lbs; BMI=38.2 kg/m2) DIAGNOSIS: Obstructive Sleep Apnea [...] two hours. A CPAP titration is recommended. [facility] Work Phone: 1(395) 322-965504-18-2024 Telephone encounter Note* Telephone Encounter - Shari Garcia RN - 08/13/2023 2:39 PM EDT SERGIO - PLEASE FACILITATE THANKS [facility]04-18-2024 Miscellaneous Notes* Telephone Encounter - Sofya Coe CMA - 08/13/2023 10:36 AM EDT Anabela from [facility] called because the order for her O2 has to say POC setting at 2L/Min viaNasal Cannula or her insurance will not cover it. They want us to fax the new order to [phone] * Telephone Encounter - Rajni Steiner DO - 08/13/2023 10:36 AM EDT Message noted. A new order for POC setting at 2L/Min via Nasal Cannula was placed in her chart today. Please fax this to [facility] so she can get her portable O2 concentrator * Telephone Encounter - Cathleen Arreola - 08/13/2023 10:36 AM EDT Got it documented in this encounterMemorial Hospital04-18-2024 Telephone encounter Note* Telephone Encounter - Sofya Coe CMA - 08/13/2023 10:36 AM EDT Anabela from [facility] called because the order for her O2 has to say POC setting at 2L/Min viaNasal Cannula or her insurance will not cover it. They want us to fax the new order to [phone] [facility]04-18-2024 Telephone encounter Note* Telephone Encounter - Rajni Steiner DO - 08/13/2023 10:36 AM EDT Message noted. A new order for POC setting at 2L/Min via Nasal Cannula was placed in her chart today. Please fax this to [facility] so she can get her portable O2 concentrator [facility]04-18-2024 Telephone encounter Note* Telephone Encounter - Cathleen Arreola - 08/13/2023 10:36 AM EDT Got it Billetto [id number] History of Present illness Narrative* Rajni Steiner [...] Exam Vitals reviewed. Exam conducted with a chainstitch tunnel elastic operator present (Friend and POA). Constitutional: General: She [...] partial remission, most recent episode unspecified type ([facility]) - Stable - At next visit, consider weaning off propanolol and doxepin documented in this encounterMemorial Hospital04-11-2024 Miscellaneous Notes* Telephone Encounter - GLORIA Scott - 08/06/2023 4:43 PM EDT Received call from patient in regard to her POC testing order, instructional writer informed patient that the order was sent to [facility] and that she should contact them if she does not hear from them by next week. Patient verbalized understanding. Patient also asked if she has a current prescription for Breztri, informed patient that a prescription for Breztri was sent to [facility] in [place] on 06/25/2023 with 10 refills, patient verbalized understanding. documented in this encounterMemorial Hospital04-11-2024 Telephone encounter Note* Telephone Encounter - GLORIA Scott - 08/06/2023 4:43 PM EDT Received call from patient in regard to her POC testing order, instructional writer informed patient that the order was sent to [facility] and that she should contact them if she does not hear from them by next week. Patient verbalized understanding. Patient also asked if she has a current prescription for Breztri, informed patient that a prescription for Breztri was sent to [facility] in [place] on 06/25/2023 with 10 refills, patient verbalized understanding. [facility]04-05-2024 Miscellaneous Notes* Telephone Encounter - Vandana Resendiz - 07/31/2023 11:51 AM EDT Patient called asking about getting a rx for portable oxygen for a trip on 08/17 she is taking. Advised there is a note in for the doctor and that she would get return call once the doctor has responded. documented in this encounterMemorial Hospital04-05-2024 Telephone encounter Note* Telephone Encounter - Vandana Resendiz - 07/31/2023 11:51 AM EDT Patient called asking about getting a rx for portable oxygen for a trip on 08/17 she is taking. Advised there is a note in for the doctor and that she would get return call once the doctor has responded. [facility]04-01-20[facility] Nurse Note* Gale Chiang RN - 07/27/2023 2:35 PM EDT Discharge instructions and medications reviewed with pt who verbalized understanding. Oxygen delivered by DME provider who instructed pt and her friend/roommate on use. PIV removed. Pt escorted to [facility] in w/c where her friend was waiting to provide transportation to home. [facility]04-01-2024 Nurse Note* Gale Chiang RN - 07/27/2023 2:35 PM EDT Discharge instructions and medications reviewed with pt who verbalized understanding. Oxygen delivered by DME provider who instructed pt and her friend/roommate on use. PIV removed. Pt escorted to lobby in [place] where her friend was waiting to provide transportation to home. documented in this encounterMemorial Hospital04-01-2024 Progress note* Discharge Planning Note - [...] Dr Steiner asked to correct order on [employer] chat. Vicki update on careport. Corrected oxygen order and face to face note sent via careport to Vicki at [facility] Await confirmation. DEENA Carty, [...] On Applied O2 With Exercise/Ambulation 95 % [facility]04-01-2024 Miscellaneous Notes* Discharge Planning Note - [...] Dr Steiner asked to correct order on [employer] chat. Vicki update on careport. Corrected oxygen order and face to face note sent via careport to Vicki at [facility] Await confirmation. DEENA Carty, [...] Referral sent to [facility] [employer] [facility], andPAULETTE Finch ([place]- P# ; F# ) ([place]- P# ; F# ) ([place]- P# ; F# ) ([place]- P# ; F# ) ([place]- P# ; F# ) ([place]- P# ; F# ) ([place]- P# [phone] ; F# [phone]) * Discharge Planning Note - DEENA Raines [...] with Self Care County Information [facility] [place] Patient Information Primary Caregiver Self Support System Immediate family;Extended family (roommate/friend/aid Norma, 3 children out of state) Stressors Type of stressor (does not endorse) Income Information Income Information Disability Referral To Community Resources Denies needs Discharge Planning Living Arrangements (with roommate Norma) Support Systems assistant auto center manager/clinical social work aide;Friends;Children;Therapist (friend Norma, 3 children out of state, psychiatrist, [employer] keycase assembler) Assistance Needed walker, meals on wheel, [employer] Services Type of Residence Private residence Private Residence [address] [place] [address] Accessibility Steps into home Number of Steps 5 Home Care Services Yes Type of Home Care Services Home health aide;Meals on Wheels;Other (Comment) ([employer] Services: Norma is paid aid for 2 hrs per day) Community Agencies Currently Utilized Banking Teacher;Mental health centers ([employer] Food Service Steward: Elise; Psychiatrist Dr. Collier, [facility]) Patient expects to be discharged to: home [...] utilizing psychiatric services with Dr. Collier in [facility] for medical management; pt does not endorse any mental health concerns, negative [place] screen. Pt friend/roommate Norma provides transportation. Pt [...] O2. Pt aware of home O2 evaluation; instructional writer reviewed areaE's, pt preference is [employer]. Educated on [facility], pt does not endorse current needs. [...] clean and dry. Skin protectant as needed. [place] pads in place. * Plan of Care - Mary Cee RN - 07/27/2023 1:31 AM EDT Problem: Pain Goal: Patient goal is pain score less than 4, able to rest, and participant in treatment plan as appropriate Description: INTERVENTIONS: 1. Encourage patient or legal account representative to report early pain and ask [...] per policy 9. Teach patient or legal account representative interventions for comforting Outcome: Progressing Note: [...] that there are some limitations compared to [id number]-[id number] evaluations. We elected to proceed. PULMONARY CONSULT Patient - Monet Dhillon Cool Age - 63 y.o. - 1960 [id number] Date of Admission - 07/25/2023 4:29 PM [...] longer uses a BIPAP 01/28/23 Bipolar disorder ([facility]) Breast injury CHF (congestive heart failure) ([facility] Chipped tooth Chronic kidney disease COPD (chronic obstructive pulmonary disease) ([facility]) Coronary artery disease Dementia ([facility]) Depression Diarrhea frequent bouts /involuntary Dizziness GERD (gastroesophageal reflux disease) Headache History of coronary artery bypass graft 08/14/2020 Liver disease Low back pain Memory loss Myocardial infarction ([facility]) Apr 2009, swith stent placement Obesity BNOY treated with BiPAP 07/31/2022 Osteoarthritis Panic disorder Psoriasis PTSD (post-traumatic stress disorder) Rotator cuff tear L Shortness of breath Sleep apnea Visual impairment glasses Past Surgical History: Procedure Laterality Date BREAST BIOPSY BREAST CYST EXCISION Cardiac catheterization N/A 01/09/2020 Performed by Yefri Khan MD at [facility] CARD[facility]ATH [facility] Cardiac catheterization-LV Cors N/A 08/06/2020 Performed by Hazel Painting [facility] at [facility] [facility] SECTION CHOLECYSTECTOMY COLONOSCOPY N/A 04/03/2017 Performed by Jose Beaver MD at [facility] Coronary angiogram and left ventricular gram/pressure N/A 01/09/2020 Performed by Yefri Khan MD at [facility] CORONARY ANGIOPLASTY WITH STENT PLACEMENT CORONARY ARTERY BYPASS GRAFT X4/ THOMPSON/ SVG X3 / RIGHT UPPER LEG OPEN VEIN HARVEST/ LEFT UPPER LEG OPEN VEING HARVEST /GINETTE N/A 08/13/2020 Performed by Leroy Meng MD at [facility] Drug eluting stent left anterior descending N/A 01/09/2020 Performed by Yefri Khan MD at [facility] EXCISION SEROMA LOWER EXTREMITY Left 10/07/2022 Performed by Victor Hugo Vincent DO at [facility] Intravascular ultrasound coronary N/A 08/06/2020 Performed by Hazel Painting MD at [facility] Intravascular ultrasound coronary N/A 01/09/2020 Performed by Yefri Khan MD at [facility] NOTCHARGED/Thrombolysis arterial initial treatment N/A 01/09/2020 Performed by Yefri Khan MD at [facility]S TONSILLECTOMY Review of [...] BY MOUTH IN THE MORNING 90 tablet giosrnrzui-sivmthta-semrhywpma (BREZTRI AEROSPHERE) 160-9-4.8 mcg/actuation HFA aerosol inhaler [...] min Stress: No Stress Concern Present (07/25/2023) [facility] - Occupational Stress Questionnaire Feeling of Stress : Only a little Recent Concern: Stress - Stress Concern Present (07/25/2023) [facility] - Occupational Stress Questionnaire Feeling of Stress : Very much Social Connections: Moderately Isolated (07/25/2023) Social Connection and Isolation Panel [NHANES] Frequency of Communication with Friends and Family: Three times a week Frequency of Social Gatherings with Friends and Family: Three times a week Attends Protestant Services: More than 4 times per year [...] Component Value Units Date/Time Blood culture #1 [[id number]] Collected: 07/25/23 175 Specimen: Blood Updated: 07/26/23 1007 Culture NO GROWTH <24 HRS SARS/FLU A+B/RSV by NAAT/Molecular (M4RT Collection Tube) [[id number]] Collected: 07/25/23 175 Specimen: Nasopharynx Updated: 07/25/23 1925 FLU A PCR Negative FLU B PCR Negative RSV by PCR Negative SARS CoV 2 BY PCR Not Detected Blood culture #2 [[id number]] Collected: 07/25/23 1745 Specimen: Blood Updated: 07/26/23 1007 Culture NO GROWTH <24 HRS SARS/FLU A+B/RSV by NAAT/Molecular (M4RT Collection Tube) [[id number]] Collected: 07/24/232149 Specimen: Nasopharynx Updated: 07/24/232243 FLU [...] Component Value Units Date/Time Blood culture #1 [[id number]] Collected: 07/25/231756 Specimen: Blood Updated: 07/26/23 1007 Culture NO GROWTH <24 HRS SARS/FLU A+B/RSV by NAAT/Molecular (M4RT Collection Tube) [[id number]] Collected: 07/25/231749 Specimen: Nasopharynx Updated: 07/25/23 192 FLU A PCR Negative FLU B PCR Negative RSV by PCR Negative SARS CoV 2 BY PCR Not Detected Blood culture #2 [[id number]] Collected: 07/25/23 174 Specimen: Blood Updated: 07/26/23 1007 Culture NO GROWTH <24 HRS SARS/FLU A+B/RSV by NAAT/Molecular (M4RT Collection Tube) [[id number]] Collected: 07/24/232149 Specimen: Nasopharynx Updated: 07/24/232243 FLU [...] regurgitation or stenosis. Mitral Valve: There is tgabn-fh-bych regurgitation. There is no evidence of mitral valve stenosis. Tricuspid Valve: There is moderate regurgitation. RVSP estimated at 40-45 mmHg. Echo complete W/ contrast Result Date: 11/19/2021 Left Ventricle: Systolic function is normal with an ejection fraction of 55-60%. Aortic Valve: There is no regurgitation or stenosis. Mitral Valve: There is wwnvo-zz-hkcp regurgitation. There is no evidence of mitral [...] Description: INTERVENTIONS: 1. Encourage patient or legal account representative to report early pain and ask [...] per policy 9. Teach patient or legal account representative interventions for comforting Outcome: Progressing Note: Evaluation of progress towards goal: Continue to assess for pain and address accordingly Problem: Moderate - High Risk Fall Score Description: Shearer Fall Score of =/> 25 or indicated by [facility] Assessment Goal: Patient should be free from fall Description: Interventions: 1. Lane to environment 2. Hourly rounds addressing the [...] non-skid footwear 11. Teach patient and patient account representative to maintain environment for safety and [...] (cane, walker) within reach 19. Request patient account representative bring adaptive equipment/mobility aids from home or obtain and provide as needed 20. Consult pharmacy regarding effects of med's affecting mobility, cognition, and alternatives 21. Obtain physician order for PT if risk factors associated with mobility are present 22. Obtain physician order for OT as appropriate 23. Utilize diversional activities 24. Educate patient and patient account representative how to maintain a safe environment during visitationtimes (notify nurse prior to leaving bedside) 25. Consider appropriateness of medical or non-manager medical device 26. Set up voiding schedule as appropriate [...] Description: INTERVENTIONS: 1. Encourage patient or legal account representative to report early pain and ask [...] per policy 9. Teach patient or legal account representative interventions for comforting Outcome: Progressing Note: [...] at the bedside 7. Instruct patient/ patient account representative about use of safety devices 8. Include patient/ patient account representative in decisions related to safety Outcome: Progressing Note: Evaluation of progress towards goal: Remains free from injury. Safety precautions maintained. Problem: Knowledge Deficit Goal: Patient/patient account representative demonstrates understanding of disease process, treatment [...] be free from fall Description: Interventions: 1. Lane to environment 2. Hourly rounds addressing the [...] non-skid footwear 11. Teach patient and patient account representative to maintain environment for safety and [...] (cane, walker) within reach 19. Request patient account representative bring adaptive equipment/mobility aids from home or obtain and provide as needed 20. Consult pharmacy regarding effects of med's affecting mobility, cognition, and alternatives 21. Obtain physician order for PT if risk factors associated with mobility are present 22. Obtain physician order for OT as appropriate 23. Utilize diversional activities 24. Educate patient and patient account representative how to maintain a safe environment during visitationtimes (notify nurse prior to leaving bedside) 25. Consider appropriateness of medical or non-manager medical device 26. Set up voiding schedule as appropriate [...] of breath. [facility] in [facility] Progress note* Discharge Planning Note - Concepcion Vargas - 07/27/2023 11:12 AM EDT DISCHARGE PLANNING NOTE Referral sent to [facility] [employer], andPAULETTE Finch ([place]- P# ; F# ) ([place]- P# ; F# ) ([place]- P# ; F# ) ([place]- P# ; F# ) ([place]- P# ; F# ) ([place]- P# ; F# ) ([place]- P# [phone] ; F# [phone]) [facility] Progress note* Discharge Planning Note - DEENA Raines - 07/27/2023 11:06 AM EDT DISCHARGE PLANNING NOTE Tasked Transition Center to send referral to [facility] [employer] for home O2 with portability for DC today; requested delivery time of equipment. [place] [id number] Hospital course Narrative* Rajni Cardoso DO [place] - 07/27/2023 10:45 AM EDT Images from the original note were not included. HOSPITAL DISCHARGE NOTE Patient Name: Monet Recinos : 1960 PCP: Rajni Steiner Jr, DO Date of admission: 07/25/2023 Date of discharge: 07/27/2023 Discharge diagnoses: Principal Problem: Chronic respiratory failure with hypoxia and hypercapnia (CMS-HCC) Active Problems: Atherosclerotic heart disease of [place] coronary artery with other forms of angina [...] 160-9-4.8 mcg/actuation HFA aerosol inhaler Generic drug: oqcngkqajt-wigdyuft-hdtavpscqy Inhale 2 puffs in the morning and [...] on discharging this patient. documented in [facility]Mem[facility]24 History of Present illness Narrative* Rebecca [...] depression, and bipolar disorder. documented in [facility]Mem[facility]04-01-2024 Progress note* Discharge Planning Note - DEENA Raines - 07/27/2023 10:21 AM EDT Images from the original note were not included. DISCHARGE PLANNING NOTE 07/27/23 1005 Discharge Disposition Discharge Disposition Home with Self Care County Information County of Residence [place] Patient Information Primary Caregiver Self Support System Immediate family;Extended family (roommate/friend/aid Norma, 3 children out of state) Stressors Type of stressor (does not endorse) Income Information Income Information Disability Referral To Community Resources Denies needs Discharge Planning Living Arrangements (with roommate Norma) Support Systems assistant auto center manager/clinical social work aide;Friends;Children;Therapist (friend Norma, 3 children out of state, psychiatrist, PASSPORT keycase assembler) Assistance Needed walker, meals on wheel, PASSPORT Services Type of Residence Private residence Private Residence [address] [facility] Accessibility Steps into home Number of Steps 5 Home Care Services Yes Type of Home Care Services Home health aide;Meals on Wheels;Other (Comment) (PASSPORT Services: Norma is paid aid for 2 hrs per day) Community Agencies Currently Utilized Banking Teacher;Mental health centers (PASSPORT Food Service Steward: Elise; Psychiatrist Dr. Collier [facility]) Patient expects to be discharged to: home [...] utilizing psychiatric services with Dr. Collier in [facility] for medical management; pt does not endorse any mental health concerns, negative [place] screen. Pt friend/roommate Norma provides transportation. Pt is utilizing [employer], meals on wheels & roommate Norma is pt paid care provider for 2 hours per day. Pt relayed she speaks with her daughters who live out of state most days by phone & her son as well; family provides natural supports. Patient's preferred pharmacy is [facility]. PCP verified as Dr. Rajni Steiner. Update from attending, monitoring for home O2. Pt aware of home O2 evaluation; instructional writer reviewed areaDME's, pt preference is [employer]. Educated on [facility], pt does not endorse current needs. Opportunity provided to ask questions, pt does not endorse any at this time. Plan to prevent readmission is for pt to follow up with PCP, pt prefers to make own appointment, follow DC instructions including medication compliance and to reach out to health care team as needed. Care Navigation following for safe care transition. [facility] Plan of care note* Plan of [...] clean and dry. Skin protectant as needed. [place] pads in place. [place] [id number] Plan of care note* Plan of Care - Mary Cee RN - 07/27/2023 1:31 AM EDT Problem: Pain Goal: Patient goal is pain score less than 4, able to rest, and participant in treatment plan as appropriate Description: INTERVENTIONS: 1. Encourage patient or legal account representative to report early pain and ask [...] per policy 9. Teach patient or legal account representative interventions for comforting Outcome: Progressing Note: Evaluation of progress towards goal: patient verbalized no pain [facility]03[facility] Plan of care note* Plan of [...] Device Nebulizer Duration (Minutes) 10 Position High [facility]03-31-[facility] Consult note* Telehealth Consult - Nathaniel [...] that there are some limitations compared to jgyi-un-wmuj evaluations. We elected to proceed. PULMONARY CONSULT [...] longer uses a BIPAP 01/28/23 Bipolar disorder ([facility] Breast injury CHF (congestive heart failure) ([facility]) Chipped tooth Chronic kidney disease COPD (chronic obstructive pulmonary disease) ([facility]) Coronary artery disease Dementia ([facility]) Depression Diarrhea frequent bouts /involuntary Dizziness GERD [...] Performed by Yefri Khan MD at [facility] Cardiac catheterization-LV Cors N/A 08/06/2020 Performed by Hazel Painting MD at [facility] SECTION CHOLECYSTECTOMY COLONOSCOPY N/A 04/03/2017 Performed by Jose Beaver MD at [facility] Coronary angiogram and left ventricular gram/pressure N/A 01/09/2020 Performed by Yefri Khan MD at [facility] CORONARY ANGIOPLASTY WITH STENT PLACEMENT CORONARY ARTERY BYPASS GRAFT X4/ THOMPSON/ SVG X3 / RIGHT UPPER LEG OPEN VEIN HARVEST/ LEFT UPPER LEG OPEN VEING HARVEST /GINETTE N/A 08/13/2020 Performed by Leroy Meng MD at [facility] Drug eluting stent left anterior descending N/A 01/09/2020 Performed by Yefri Khan MD at [facility] EXCISION SEROMA LOWER EXTREMITY Left 10/07/2022 Performed by Victor Hugo Vincent DO at [facility] Intravascular ultrasound coronary N/A 08/06/2020 Performed by Hazel Painting MD at [facility] Intravascular ultrasound coronary N/A 01/09/2020 Performed by Yefri Khan MD at [facility] NOTCHARGED/Thrombolysis arterial initial treatment N/A 01/09/2020 Performed by Yefri Khan MD at [facility]S TONSILLECTOMY Review of [...] BY MOUTH IN THE MORNING 90 tablet jqqcxhbzpa-hrsuurdo-clfztwtyfa (BREZTRI AEROSPHERE) 160-9-4.8 mcg/actuation HFA aerosol inhaler [...] min Stress: No Stress Concern Present (07/25/2023) [facility] - Occupational Stress Questionnaire Feeling of Stress : Only a little Recent Concern: Stress - Stress Concern Present (07/25/2023) [facility] - Occupational Stress Questionnaire Feeling of Stress : Very much Social Connections: Moderately Isolated (07/25/2023) Social Connection and Isolation Panel [NHANES] Frequency of Communication with Friends and Family: Three times a week Frequency of Social Gatherings with Friends and Family: Three times a week Attends Protestant Services: More than 4 times per year [...] Component Value Units Date/Time Blood culture #1 [[id number]] Collected: 07/25/231756 Specimen: Blood Updated: 07/26/23 1007 Culture NO GROWTH <24 HRS SARS/FLU A+B/RSV by NAAT/Molecular (M4RT Collection Tube) [[id number]] Collected: 07/25/231749 Specimen: Nasopharynx Updated: 07/25/231924 FLU A PCR Negative FLU B PCR Negative RSV by PCR Negative SARS CoV 2 BY PCR Not Detected Blood culture #2 [[id number]] Collected: 07/25/231744 Specimen: Blood Updated: 07/26/23 1007 Culture NO GROWTH <24 HRS SARS/FLU A+B/RSV by NAAT/Molecular (M4RT Collection Tube) [[id number]] Collected: 07/24/232149 Specimen: Nasopharynx Updated: 07/24/232243 FLU [...] Component Value Units Date/Time Blood culture #1 [[id number]] Collected: 07/25/231756 Specimen: Blood Updated: 07/26/23 1007 Culture NO GROWTH <24 HRS SARS/FLU A+B/RSV by NAAT/Molecular (M4RT Collection Tube) [[id number]] Collected: 07/25/231749 Specimen: Nasopharynx Updated: 07/25/231924 FLU A PCR Negative FLU B PCR Negative RSV by PCR Negative SARS CoV 2 BY PCR Not Detected Blood culture #2 [[id number]] Collected: 07/25/231744 Specimen: Blood Updated: 07/26/23 1007 Culture NO GROWTH <24 HRS SARS/FLU A+B/RSV by NAAT/Molecular (M4RT Collection Tube) [[id number]] Collected: 07/24/232149 Specimen: Nasopharynx Updated: 07/24/232243 FLU [...] Narvaez MD on 07/24/2023 9:58 PM I, rTisten Neely MD have personally reviewed the image(s) [...] regurgitation or stenosis. Mitral Valve: There is rdgfh-fi-klkv regurgitation. There is no evidence of mitral valve stenosis. Tricuspid Valve: There is moderate regurgitation. RVSP estimated at 40-45 mmHg. Echo complete W/ contrast Result Date: 11/19/2021 Left Ventricle: Systolic function is normal with an ejection fraction of 55-60%. Aortic Valve: There is no regurgitation or stenosis. Mitral Valve: There is akiob-pb-iftj regurgitation. There is no evidence of mitral valve stenosis. Tricuspid Valve: There is moderate regurgitation. RVSP calculated at 42 mmHg. RVSP is based on RA pressure of 3 mmHg. ASSESSMENT / PLAN: COPD - BD Acute hypoxic resp failure - O2; wean as tolerated ? Home O2 BONY/OHS BPAP as tolerated Sleep study scheduled for next week DW patient [place] Work Phone: [phone]) 714-705403-31-2024 Plan of care note* Plan of Care - Gale Chiang RN - 07/26/2023 10:00 AM EDT Problem: Pain Goal: Patient goal is pain score less than 4, able to rest, and participant in treatment plan as appropriate Description: INTERVENTIONS: 1. Encourage patient or legal account representative to report early pain and ask [...] per policy 9. Teach patient or legal account representative interventions for comforting Outcome: Progressing Note: Evaluation of progress towards goal: Continue to assess for pain and address accordingly Problem: Moderate - High Risk Fall Score Description: Shearer Fall Score of =/> 25 or indicated by [facility] Assessment Goal: Patient should be free from fall Description: Interventions: 1. Lane to environment 2. Hourly rounds addressing the [...] non-skid footwear 11. Teach patient and patient account representative to maintain environment for safety and [...] (cane, walker) within reach 19. Request patient account representative bring adaptive equipment/mobility aids from home or obtain and provide as needed 20. Consult pharmacy regarding effects of med's affecting mobility, cognition, and alternatives 21. Obtain physician order for PT if risk factors associated with mobility are present 22. Obtain physician order for OT as appropriate 23. Utilize diversional activities 24. Educate patient and patient account representative how to maintain a safe environment during visitationtimes (notify nurse prior to leaving bedside) 25. Consider appropriateness of medical or non-manager medical device 26. Set up voiding schedule as appropriate (every 2 hours) Outcome: Progressing Note: Evaluation of progress towards goal: PT is free of falls, hourly rounding is completed, area is kept clear. [facility]03[facility] Plan of care note* Plan of [...] Nebulizer Duration (Minutes) 10 Position Semi [facility]03-31-20[facility] Plan of care note* Plan of Care - Lissette Mathews RN - 07/26/2023 4:47 AM EDT Problem: Pain Goal: Patient goal is pain score less than 4, able to rest, and participant in treatment plan as appropriate Description: INTERVENTIONS: 1. Encourage patient or legal account representative to report early pain and ask [...] per policy 9. Teach patient or legal account representative interventions for comforting Outcome: Progressing Note: [...] at the bedside 7. Instruct patient/ patient account representative about use of safety devices 8. Include patient/ patient account representative in decisions related to safety Outcome: Progressing Note: Evaluation of progress towards goal: Remains free from injury. Safety precautions maintained. Problem: Knowledge Deficit Goal: Patient/patient account representative demonstrates understanding of disease process, treatment [...] indicated by [facility] Assessment Goal: Patient should be free from fall Description: Interventions: 1. Lane to environment 2. Hourly rounds addressing the [...] non-skid footwear 11. Teach patient and patient account representative to maintain environment for safety and [...] (cane, walker) within reach 19. Request patient account representative bring adaptive equipment/mobility aids from home or obtain and provide as needed 20. Consult pharmacy regarding effects of med's affecting mobility, cognition, and alternatives 21. Obtain physician order for PT if risk factors associated with mobility are present 22. Obtain physician order for OT as appropriate 23. Utilize diversional activities 24. Educate patient and patient account representative how to maintain a safe environment during visitationtimes (notify nurse prior to leaving bedside) 25. Consider appropriateness of medical or non-manager medical device 26. Set up voiding schedule as appropriate [...] distress noted. PT denies shortness of breath. [place]illetto [id number] History and physical note* Rajni Gimenez MD [...] longer uses a BIPAP 01/28/23 Bipolar disorder ([facility]) Breast injury CHF (congestive heart failure) ([facility] Chipped tooth Chronic kidney disease COPD (chronic obstructive pulmonary disease) ([facility]) Coronary artery disease Dementia ([facility]) Depression Diarrhea frequent bouts /involuntary Dizziness GERD (gastroesophageal reflux disease) Headache History of coronary artery bypass graft 08/14/2020 Liver disease Low back pain Memory loss Myocardial infarction ([facility]) Apr 2009, swith stent placement Obesity BONY treated with BiPAP 07/31/2022 Osteoarthritis Panic disorder Psoriasis PTSD (post-traumatic stress disorder) Shortness of breath Sleep apnea Visual impairment glasses PAST SURGICAL HISTORY: Past Surgical History: Procedure Laterality Date BREAST BIOPSY BREAST CYST EXCISION Cardiac catheterization N/A 01/09/2020 Performed by Yefri Khan MD at [facility] Cardiac catheterization-LV Cors N/A 08/06/2020 Performed by Hazel Painting MD at [facility] SECTION CHOLECYSTECTOMY COLONOSCOPY N/A 04/03/2017 Performed by Jose Beaver MD at [facility] Coronary angiogram and left ventricular gram/pressure N/A 01/09/2020 Performed by Yefri Khan MD at [facility] CORONARY ANGIOPLASTY WITH STENT PLACEMENT CORONARY ARTERY BYPASS GRAFT X4/ THOMPSON/ SVG X3 / RIGHT UPPER LEG OPEN VEIN HARVEST/ LEFT UPPER LEG OPEN VEING HARVEST /GINETTE N/A 08/13/2020 Performed by Leroy Meng MD at [facility] Drug eluting stent left anterior descending N/A 01/09/2020 Performed by Yefri Khan MD at [facility] EXCISION SEROMA LOWER EXTREMITY Left 10/07/2022 Performed by Victor Hugo Vincent DO at [facility] Intravascular ultrasound coronary N/A 08/06/2020 Performed by Hazel Painting MD at [facility] Intravascular ultrasound coronary N/A 01/09/2020 Performed by Yefri Khan MD at [facility] NOTCHARGED/Thrombolysis arterial initial treatment N/A 01/09/2020 Performed by Yefri Khan MD at [facility] TONSILLECTOMY Travel History [...] min Stress: No Stress Concern Present (07/25/2023) [facility] - Occupational Stress Questionnaire Feeling of Stress : Only a little Recent Concern: Stress - Stress Concern Present (07/25/2023) [facility] - Occupational Stress Questionnaire Feeling of Stress : Very much Social Connections: Moderately Isolated (07/25/2023) Social Connection and Isolation Panel [NHANES] Frequency of Communication with Friends and Family: Three times a week Frequency of Social Gatherings with Friends and Family: Three times a week Attends Protestant Services: More than 4 times per year [...] BY MOUTH IN THE MORNING 90 tablet rgippnihvl-vbsiqwbn-wxpytwlfap (BREZTRI AEROSPHERE) 160-9-4.8 mcg/actuation HFA aerosol inhaler [...] is stable and further pending her course. [place] [id number] History and physical note* Rajni Gimenez MD [...] longer uses a BIPAP 01/28/23 Bipolar disorder ([facility]) Breast injury CHF (congestive heart failure) ([facility] Chipped tooth Chronic kidney disease COPD (chronic obstructive pulmonary disease) [place] Coronary artery disease Dementia ([facility] Depression Diarrhea frequent bouts /involuntary Dizziness GERD (gastroesophageal reflux disease) Headache History of coronary artery bypass graft 08/14/2020 Liver disease Low back pain Memory loss Myocardial infarction ([facility]) Apr 2009, swith stent placement Obesity BONY treated with BiPAP 07/31/2022 Osteoarthritis Panic disorder Psoriasis PTSD (post-traumatic stress disorder) Shortness of breath Sleep apnea Visual impairment glasses PAST SURGICAL HISTORY: Past Surgical History: Procedure Laterality Date BREAST BIOPSY BREAST CYST EXCISION Cardiac catheterization N/A 01/09/2020 Performed by Yefri Khan MD at [facility] Cardiac catheterization-LV Cors N/A 08/06/2020 Performed by Hazel Painting MD at [facility] SECTION CHOLECYSTECTOMY COLONOSCOPY N/A 04/03/2017 Performed by Jose Beaver MD at [facility] Coronary angiogram and left ventricular gram/pressure N/A 01/09/2020 Performed by Yefri Khan MD at [facility] CORONARY ANGIOPLASTY WITH STENT PLACEMENT CORONARY ARTERY BYPASS GRAFT X4/ THOMPSON/ SVG X3 / RIGHT UPPER LEG OPEN VEIN HARVEST/ LEFT UPPER LEG OPEN VEING HARVEST /GINETTE N/A 08/13/2020 Performed by Leroy Meng MD at [facility] Drug eluting stent left anterior descending N/A 01/09/2020 Performed by Yefri Khan MD at [facility] EXCISION SEROMA LOWER EXTREMITY Left 10/07/2022 Performed by Victor Hugo Vincent DO at [facility] Intravascular ultrasound coronary N/A 08/06/2020 Performed by Hazel Painting MD at [facility] Intravascular ultrasound coronary N/A 01/09/2020 Performed by Yefri Khan MD at [facility] NOTCHARGED/Thrombolysis arterial initial treatment N/A 01/09/2020 Performed by Yefri Khan MD at [facility] TONSILLECTOMY Travel History [...] min Stress: No Stress Concern Present (07/25/2023) [facility] - Occupational Stress Questionnaire Feeling of Stress : Only a little Recent Concern: Stress - Stress Concern Present (07/25/2023) [facility] [place] [facility] - Occupational Stress Questionnaire Feeling of Stress : Very much Social Connections: Moderately Isolated (07/25/2023) Social Connection and Isolation Panel [NHANES] Frequency of Communication with Friends and Family: Three times a week Frequency of Social Gatherings with Friends and Family: Three times a week Attends Protestant Services: More than 4 times per year [...] BY MOUTH IN THE MORNING 90 tablet llwpkuczre-sfjbebnp-xuzvzrrabg (BREZTRI AEROSPHERE) 160-9-4.8 mcg/actuation HFA aerosol inhaler [...] further pending her course. documented in this encounterChildren's Hospital for RehabilitationInformed Trades [id number] Note Procedure: Chest x-ray performed Number of views:2 History:Shortness of breath Comparison:07/24/2023 Findings: The heart and lungs show no acute findings, and the mediastinum and satnam are grossly negative . Impression: 1. No acute change. Finalized by Abdelrahman Patel MD on 07/25/2023 5:16 [id number] Physician Emergency department Note* Mary Lock MD [...] - Primary Other Visit Diagnoses COPD exacerbation ([facility]) Relevant Medications ipratropium-albuteroL (DUONEB) 0.5 mg-3 mg(2.5 mg base)/3 mL nebulizer solution 3 mL (Completed) dexAMETHasone sodium phos (PF) (DECADRON) injection 10 mg ipratropium-albuteroL (DUONEB) 0.5 mg-3 mg(2.5 mg base)/3 mL nebulizer solution 3 mL Acute respiratory failure with hypoxia and hypercapnia ([facility]) Past Medical History: Diagnosis Date Agoraphobia Angina at rest Anxiety BiPAP (biphasic positive airway pressure) dependence Patient states she no longer uses a BIPAP 10/4/23 Bipolar disorder ([facility]) Breast injury CHF (congestive heart failure) ([facility]) Chipped tooth COPD (chronic obstructive pulmonary disease) ([facility]) Coronary artery disease Dementia ([facility]) Depression GERD (gastroesophageal reflux disease) History of coronary artery bypass graft 08/14/2020 Liver disease Low back pain Myocardial infarction ([facility]) Apr 2009, swith stent placement Obesity BONY treated with BiPAP 07/31/2022 Osteoarthritis Panic disorder PTSD (post-traumatic stress disorder) Sleep apnea Visual impairment glasses Past Surgical History: Procedure Laterality Date BREAST BIOPSY BREAST CYST EXCISION Cardiac catheterization N/A 01/09/2020 Performed by Yefri Khan MD at [facility] Cardiac catheterization-LV Cors N/A 08/06/2020 Performed by Hazel Painting MD at [facility] SECTION CHOLECYSTECTOMY COLONOSCOPY N/A 04/03/2017 Performed by Jose Beaver MD at [facility] Coronary angiogram and left ventricular gram/pressure N/A 01/09/2020 Performed by Yefri Khan MD at [facility] CORONARY ANGIOPLASTY WITH STENT PLACEMENT CORONARY ARTERY BYPASS GRAFT X4/ THOMPSON/ SVG X3 / RIGHT UPPER LEG OPEN VEIN HARVEST/ LEFT UPPER LEG OPEN VEING HARVEST /GINETTE N/A 08/13/2020 Performed by Leroy Meng MD at [facility] Drug eluting stent left anterior descending N/A 01/09/2020 Performed by Yefri Khan MD at [facility] EXCISION SEROMA LOWER EXTREMITY Left 10/07/2022 Performed by Victor Hugo Vincent DO at [facility] Intravascular ultrasound coronary N/A 08/06/2020 Performed by Hazel Painting MD at [facility] Intravascular ultrasound coronary N/A 01/09/2020 Performed by Yefri Khan MD at [facility] NOTCHARGED/Thrombolysis arterial initial treatment N/A 01/09/2020 Performed by Yefri Khan MD at [facility] TONSILLECTOMY Travel Screening [...] at this time. There is no community life director available in the ED, so will workon [...] Clinical Impressions as of 07/25/231926 COPD exacerbation ([facility]) Acute respiratory failure with hypoxia and hypercapnia ([facility]) Hypoxia MDM Medical Decision Making Heena Bob (critical access hospital) documented for Dr. Lock. Chart Reviewed. Date: [...] signing this emergency patient record, the Emergency Physician/ASSEMBLER FOR PULLER OVER MACHINE/PA-C attests that all entries made into the electronic medical record by arianna John prior to the Physician/ASSEMBLER FOR PULLER OVER MACHINE/PA-C signature reflect an accurate accounting of the evaluation and care rendered by that Emergency Physician/ASSEMBLER FOR PULLER OVER MACHINE/PA-C. The Emergency Physician/ASSEMBLER FOR PULLER OVER MACHINE/PA-C assumes full responsibility for those entries. The Emergency Physician/ASSEMBLER FOR PULLER OVER MACHINE/PA-C also attests that any patient testing or treatment that was instituted by nursing staff in accordance to Emergency Department Preemptive Guidelines have been reviewed and unless so stated elsewhere in this patient chart, the Physician/ASSEMBLER FOR PULLER OVER MACHINE/PA-C agrees with the testing and care provided. No Additional Attestations Heena Tran 07/25/23 1728 Heena Tran 07/25/23 1811 Heena Tran 07/25/23 1812 Heena Tran 07/25/23 1812 Heena Tran 07/25/23 1824 Mary Lock MD 07/25/23 182 Heena Tran 07/25/23 1837 Heena Tran 07/25/23 1905 Mary Lock MD 07/25/23 192 Mary Lock MD 07/25/231926 [facility] Emergency department Note* Mary Lock MD [...] - Primary Other Visit Diagnoses COPD exacerbation ([facility]) Relevant Medications ipratropium-albuteroL (DUONEB) 0.5 mg-3 mg(2.5 mg base)/3 mL nebulizer solution 3 mL (Completed) dexAMETHasone sodium phos (PF) (DECADRON) injection 10 mg ipratropium-albuteroL (DUONEB) 0.5 mg-3 mg(2.5 mg base)/3 mL nebulizer solution 3 mL Acute respiratory failure with hypoxia and hypercapnia ([facility] Past Medical History: Diagnosis Date Agoraphobia Angina at rest Anxiety BiPAP (biphasic positive airway pressure) dependence Patient states she no longer uses a BIPAP 01/28/23 Bipolar disorder ([facility]) Breast injury CHF (congestive heart failure) ([facility] Chipped tooth COPD (chronic obstructive pulmonary disease) ([facility] Coronary artery disease Dementia ([facility] Depression GERD (gastroesophageal reflux disease) History of coronary artery bypass graft 08/14/2020 Liver disease Low back pain Myocardial infarction ([facility] Apr 2009, swith stent placement Obesity BONY treated with BiPAP 07/31/2022 Osteoarthritis Panic disorder PTSD (post-traumatic stress disorder) Sleep apnea Visual impairment glasses Past Surgical History: Procedure Laterality Date BREAST BIOPSY BREAST CYST EXCISION Cardiac catheterization N/A 01/09/2020 Performed by Yefri Khan MD at [facility] Cardiac catheterization-LV Cors N/A 08/06/2020 Performed by Hazel Painting MD at [facility] SECTION CHOLECYSTECTOMY COLONOSCOPY N/A 04/03/2017 Performed by Jose Beaver MD at [facility] Coronary angiogram and left ventricular gram/pressure N/A 01/09/2020 Performed by Yefri Khan MD at [facility] CORONARY ANGIOPLASTY WITH STENT PLACEMENT CORONARY ARTERY BYPASS GRAFT X4/ THOMPSON/ SVG X3 / RIGHT UPPER LEG OPEN VEIN HARVEST/ LEFT UPPER LEG OPEN VEING HARVEST /GINETTE N/A 08/13/2020 Performed by Leroy Meng MD at [facility] Drug eluting stent left anterior descending N/A 01/09/2020 Performed by Yefri Khan MD at [facility] EXCISION SEROMA LOWER EXTREMITY Left 10/07/2022 Performed by Victor Hugo Vincent DO at [facility] Intravascular ultrasound coronary N/A 08/06/2020 Performed by Hazel Painting MD at [facility] Intravascular ultrasound coronary N/A 01/09/2020 Performed by Yefri Khan MD at [facility] NOTCHARGED/Thrombolysis arterial initial treatment N/A 01/09/2020 Performed by Yefri Khan MD at [facility] TONSILLECTOMY Travel Screening [...] at this time. There is no community life director available in the ED, so will workon [...] Clinical Impressions as of 07/25/231926 COPD exacerbation ([facility] Acute respiratory failure with hypoxia and hypercapnia ([facility] Hypoxia MDM Medical Decision Making Heena Bob (critical access hospital) documented for Dr. Lock. Chart Reviewed. Date: [...] signing this emergency patient record, the Emergency Physician/ASSEMBLER FOR PULLER OVER MACHINE/PA-C attests that all entries made into the electronic medical record by arianna John prior to the Physician/ASSEMBLER FOR PULLER OVER MACHINE/PA-C signature reflect an accurate accounting of the evaluation and care rendered by that Emergency Physician/ASSEMBLER FOR PULLER OVER MACHINE/PA-C. The Emergency Physician/ASSEMBLER FOR PULLER OVER MACHINE/PA-C assumes full responsibility for those entries. The Emergency Physician/ASSEMBLER FOR PULLER OVER MACHINE/PA-C also attests that any patient testing or treatment that was instituted by nursing staff in accordance to Emergency Department Preemptive Guidelines have been reviewed and unless so stated elsewhere in this patient chart, the Physician/ASSEMBLER FOR PULLER OVER MACHINE/PA-C agrees with the testing and care provided. [...] on room air 85% [facility] Emergency department Triage note* Jade Alvarez RN - 07/25/2023 4:31 PM EDT Patient presents with complaints of difficulty breathing x's 1 week. Patient states she was seen inthe ER yesterday and diagnosed with Right Lower Lobe pneumonia. SpO2 on room air 85% [facility] History of Present illness Narrative* Rajni [...] strengthening. 2. Stage 3a chronic kidney disease ([facility] -recent GFR 45 -again is on multiple [...] with preserved ejection fraction ([facility]) -GDMT currently includes beta-georgi, SGLT 2 agent, [...] Exam Vitals reviewed. Exam conducted with a chainstitch tunnel elastic operator present (Friend/POA). Constitutional: General: She is not [...] THE MORNING, Disp: 90 tablet, Rfl: 3 iepglfzqdx-poefrifc-qcrufnzxam (BREZTRI AEROSPHERE) 160-9-4.8 mcg/actuation HFA aerosol inhaler, [...] measurable pneumothorax. Right costophrenic angle excluded from [id number]. Impression: 1. Persistent effusions, with or without [...] on 04/13/2023 1:48 PM Rajni Steiner DO., [facility] Office: [phone] documented in this encounterMem[facility] Hospital[facility] Miscellaneous Notes* Telephone Encounter - Heena Mendoza - 06/25/2023 2:20 PM EST Order received Scheduled SN at [facility] on 08/11/23 Confirmation emailed [facility] Medicare Dual Complete Medicaid [place] SN Order and 06/25/23 Stephanie Wilson Notes Quick transition to BIPAP- WITH TCO2 monitoring documented in this encounterMem[facility] Telephone encounter Note* Telephone Encounter - Heena Mendoza - 06/25/2023 2:20 PM EST Order received Scheduled SN at [facility] on 08/11/23 Confirmation emailed [facility] Medicare Dual Complete Medicaid [place] SN Order and 06/25/23 Stephanie Meadows Epic Notes Quick transition to BIPAP- WITH TCO2 monitoring [facility]02-29-2024 History of Present illness Narrative* Grace Meadows, DO - 06/25/2023 10:00 AM EST Images from the original note were not included. [employer] [facility] Progress Note Patient - [...] assess for acuity. Dr. Grace Meadows DO. [facility] Office: [phone] documented in this encounterMemorial Hospital02-29-[facility]24 Miscellaneous Notes* Telephone Encounter - Bipin Allen - 06/25/2023 9:54 AM EST Pt called in to inform that her battery but she is getting it jumped now, she stated that she will still make it to her 10am appt today w/SE Pls advise pt documented in this encounterMemorial Hospital02-[facility] Telephone encounter Note* Telephone Encounter - Bipin Allen - 06/25/2023 9:54 AM EST Pt called in to inform that her battery but she is getting it jumped now, she stated that she will still make it to her 10am appt today w/SE Pls advise pt [facility] History of Present illness Narrative* Rajni [...] history. Most recently had prolonged hospitalization at [facility] due to severe pneumonia, and was on [...] Exam Vitals reviewed. Exam conducted with a chainstitch tunnel elastic operator present (Friend/POA). Constitutional: General: She is not [...] with preserved ejection fraction ([facility]) - Basic Metabolic Panel; Future - CBC auto differential; Future - TSH with Reflex; Future - reviewed the notes from the recent admission to the. -medication had been changed. Repeat lab as above, and adjust medications as needed to maintain heart failure control without dehydration and kidney injury. Bipolar disorder in partial remission, most recent episode unspecified type ([facility] -patient with longstanding mental health issues including [...] all these medications. Atherosclerotic heart disease of [place] coronary artery with other forms of angina pectoris ([facility]) -previous CABG -currently aspirin 81 mg daily, atorvastatin and beta-georgi in the form of propanolol [place] -no changes in current regimen BMI 40.0-44.9, adult ([facility]) .- Patient extremely overweight -reviewed need to [...] as above documented in this encounterBrattleboro Memorial HospitalWoopie [id number] Miscellaneous Notes* Telephone Encounter - Maryellen GLORIA Huertas - 05/18/2023 12:35 PM EST Patient called and stated that she was recently discharged from [facility] on 05/15/2023.Patient stated that she was in the hospital from 04/13/2023 - 04/29/2023, which she was then placed[place] due to being on a ventilator. Patient [...] GLORIA Scott - 05/18/2023 12:35 PM EST Manager Environmental Services contacted patient and informed her of medication [...] will go to ED. documented in this encounterChildren's Hospital for RehabilitationNursenav [facility] [id number] Telephone encounter Note* Telephone Encounter - GLORIA Scott - 05/18/2023 12:35 PM EST Patient called and stated that she was recently discharged from [facility] on 05/15/2023.Patient stated that she was in the hospital from 04/13/2023 - 04/29/2023, which she was then placedat [place] due to being on a ventilator. Patient [...] with BMI 39 Please review and advise. [facility]01-22-2024 Telephone encounter Note* Telephone Encounter - Grace Meadows DO - 05/18/2023 12:35 PM EST Rx sent for doxycycline x 10 days. Needs appt in clinic in May [place] [id number] Telephone encounter Note* Telephone Encounter - GLORIA Scott - 05/18/2023 12:35 PM EST Manager Environmental Services contacted patient and informed her of medication [...] stated that she will go to ED. [facility]08-17-2023 Evaluation note* Encounter Date Diagnosis Assessment Notes [...] patient is severely deconditioned I had her housing quality standard inspector my office for at least 10 minutes [...] unspecified whether sciatica present (ICD-10 - M54.50) [place] [employer] Other evaluation noteNo assessment information available [facility] Work Phone: Evaluation note* Diagnosis Left shoulder pain, unspecified chronicity- Primary Arthritis of left shoulder region documented in this encounter [facility]* Diagnosis Trigger point of left side of body- Primary Arthritis of left sacroiliac joint (CMS/HCC) Lumbosacral pain Pain of left sacroiliac joint documented in this encounter [facility] HealthcareEvaluation note* Diagnosis Chronic obstructive pulmonary disease, unspecified COPD type (CMS/HCC)- Primary Chronic respiratory failure with hypoxia and hypercapnia (CMS/HCC) Cigarette smoker Tobacco use disorder documented in this encounter [facility] HealthcareEvaluation note* Diagnosis Trigger point of left side of body- Primary documented in this encounter [facility] HealthcareEvaluation note* Diagnosis Trigger point of left side of body- Primary Compression fracture of T6 vertebra with routine healing, subsequent encounter Compression fracture of T8 vertebra with routine healing, subsequent encounter Osteoporotic compression fracture of vertebra with routine healing, subsequent encounter [facility] Diagnosis Atherosclerosis of [place] coronary artery of [place] heart without angina pectoris Hx of hyperlipidemia documented [facility]* Diagnosis Peripheral polyneuropathy documented in [facility]* Diagnosis BONY (obstructive sleep apnea)- Primary Obstructive sleep apnea (adult) (pediatric) Hypoxemia associated with sleep documented in this encounter [facility]* Diagnosis Closed wedge compression fracture of T6 vertebra with routine healing- Primary Acute pulmonary embolism without acute cor pulmonale, unspecified pulmonary embolism type ([facility]) Venous insufficiency of both lower extremities Chronic respiratory failure with hypoxia and hypercapnia ([facility]) Chronic heart failure with preserved ejection fraction ([facility]) Spinal stenosis of lumbar region with neurogenic claudication Peripheral polyneuropathy B12 deficiency documented in this encounter [facility]* Diagnosis Chronic heart failure with preserved ejection fraction ([facility]) Atherosclerosis of [place] coronary artery of [place] heart without angina pectoris documented in this encounter [facility]* Diagnosis Closed wedge compression fracture of T6 vertebra with routine healing documented in this encounter [facility]* Diagnosis Closed wedge compression fracture of T6 vertebra with routine healing- Primary Acute pulmonary embolism without acute cor pulmonale, unspecified pulmonary embolism type ([facility]) Spinal stenosis of lumbar region with neurogenic claudication documented [facility] encounter [facility]* Diagnosis Gastro-esophageal reflux disease without esophagitis documented in this encounter [facility]* Diagnosis Spinal stenosis of lumbar region with neurogenic claudication- Primary documented in this encounter [facility]* Diagnosis Closed wedge compression fracture of T6 vertebra with routine healing documented in this encounter [facility]* Diagnosis Chronic heart failure with preserved ejection fraction ([facility])- Primary Bipolar disorder in partial remission, most recent episode unspecified type ([facility]) Atherosclerotic heart disease of [place] coronary artery with other forms of angina pectoris ([facility]) BMI 40.0-44.9, adult ([facility]) BONY treated with BiPAP documented in this encounter [facility]* Diagnosis Flu-like symptoms- Primary Community acquired pneumonia, unspecified laterality Chronic heart failure with preserved ejection fraction (CMS-HCC) Community acquired pneumonia, unspecified laterality Chronic heart failure with preserved ejection fraction ([facility]) documented in this encounter [facility]* Diagnosis Shortness of breath Chronic heart failure with preserved ejection fraction ([facility]) documented in this encounter [facility]* Diagnosis BONY treated with BiPAP- Primary Chronic obstructive pulmonary disease, unspecified COPD type ([facility]) Shortness of breath Cigarette nicotine dependence in remission documented in this encounter [facility]* Diagnosis Venous insufficiency of both lower extremities- Primary Chronic heart failure with preserved ejection fraction ([facility]) Acute pulmonary embolism without acute cor pulmonale, unspecified pulmonary embolism type ([facility]) B12 deficiency documented in this encounter [facility]* Diagnosis Fibromyalgia syndrome Unspecified myalgia and myositis documented in this encounter [facility]* Diagnosis Fibromyalgia syndrome- Primary Unspecified myalgia and myositis Stage 3a chronic kidney disease ([facility]) BONY treated with BiPAP Chronic heart failure with preserved ejection fraction ([facility]) Obesity (BMI 30-39.9) [facility] Diagnosis Chronic respiratory failure with hypoxia and hypercapnia (CMS-HCC)- Primary COPD exacerbation ([facility]) Obstructive chronic bronchitis with exacerbation Acute respiratory failure with hypoxia and hypercapnia ([facility]) Hypoxia Hypoxemia Chronic respiratory failure with hypoxia and hypercapnia ([facility]) Bipolar 2 disorder, major depressive episode ([facility]) Essential hypertension Unspecified essential hypertension Atherosclerotic heart disease of [place] coronary artery with other forms of angina pectoris ([facility]) [facility] Diagnosis Unilateral groin pain, right- Primary Spinal stenosis of lumbar region with neurogenic claudication Chronic respiratory failure with hypoxia and hypercapnia ([facility]) Chronic heart failure with preserved ejection fraction ([facility]) BONY treated with BiPAP Bipolar disorder in partial remission, most recent episode unspecified type ([facility]) [facility] Diagnosis BONY treated with BiPAP [facility] Diagnosis Spinal stenosis of lumbar region with neurogenic claudication [facility] Diagnosis Chronic respiratory failure with hypoxia and hypercapnia (CMS-HCC)- Primary BONY treated with BiPAP Spinal stenosis of lumbar region with neurogenic claudication Chronic heart failure with preserved ejection fraction (CMS-HCC) [facility] Diagnosis Chronic heart failure with preserved ejection fraction (CMS-HCC) [facility] Diagnosis Spinal stenosis of lumbar region with neurogenic claudication [facility] Diagnosis Chronic heart failure with preserved ejection fraction (CMS-HCC) [facility] Diagnosis Chronic heart failure with preserved ejection fraction (CMS-HCC) [facility]* Diagnosis Atherosclerotic heart disease of [place] coronary artery with other forms of angina pectoris ([facility])- Primary [facility]* Diagnosis IFG (impaired fasting glucose)- Primary Peripheral polyneuropathy Stage 3a chronic kidney disease ([facility]) Chronic heart failure with preserved ejection fraction ([facility]) Atherosclerotic heart disease of [place] coronary artery with other forms of angina pectoris ([facility]) [facility] Diagnosis Gastro-esophageal reflux disease without esophagitis [facility]* Diagnosis Contusion of lower leg, unspecified laterality, initial encounter- Primary [facility]* Diagnosis IFG (impaired fasting glucose)- Primary Chronic obstructive pulmonary disease, unspecified COPD type ([facility]) Stage 3a chronic kidney disease ([facility]) Chronic respiratory failure with hypoxia and hypercapnia ([facility]) Chronic heart failure with preserved ejection fraction ([facility]) Bipolar 2 disorder, major depressive episode ([facility]) BMI 40.0-44.9, adult ([facility]) Atherosclerotic heart disease of [place] coronary artery with other forms of angina pectoris ([facility]) B12 deficiency Peripheral polyneuropathy Arthritis of left sacroiliac joint ([facility]) [facility] Diagnosis Chronic heart failure with preserved ejection fraction ([facility]) Atherosclerosis of [place] coronary artery of [place] heart without angina pectoris [facility]* Diagnosis Gastro-esophageal reflux disease without esophagitis [facility] Diagnosis Chronic heart failure with preserved ejection fraction (CMS-HCC)- Primary Atherosclerotic heart disease of [place] coronary artery with other forms of angina pectoris Hx of CABG Postsurgical aortocoronary bypass status documented [facility]* Diagnosis Chronic obstructive pulmonary disease, unspecified COPD type ([facility])- Primary Chronic respiratory failure with hypoxia and hypercapnia ([facility]) BONY (obstructive sleep apnea) Obstructive sleep apnea (adult) (pediatric) [facility] Cervicogenic headache- Primary Headache Orthostatic hypotension Chronic heart failure with preserved ejection fraction ([facility]) Fibromyalgia syndrome Unspecified myalgia and myositis [facility]* Diagnosis Peripheral polyneuropathy Cervicogenic headache Headache [facility]* Diagnosis Peripheral polyneuropathy [facility] Diagnosis Chronic heart failure with preserved ejection fraction (CMS-HCC)- Primary Pulmonary hypertension ([facility]) Other chronic pulmonary heart diseases Nonrheumatic tricuspid valve regurgitation Essential hypertension Unspecified essential hypertension Atherosclerosis of [place] coronary artery of [place] heart without angina pectoris History of four vessel coronary artery bypass graft NSTEMI (non-ST elevated myocardial infarction) ([facility]) Acute myocardial infarction, subendocardial infarction, episode of care unspecified [facility] Diagnosis Chronic heart failure with preserved ejection fraction ([facility])- Primary Essential hypertension Unspecified essential hypertension Pulmonary hypertension ([facility]) Other chronic pulmonary heart diseases Nonrheumatic tricuspid valve regurgitation Atherosclerosis of [place] coronary artery of [place] heart without angina pectoris History of four vessel coronary artery bypass graft [facility]* Diagnosis Microcytic anemia- Primary Unspecified iron deficiency anemia Gastro-esophageal reflux disease without esophagitis Stage 3a chronic kidney disease ([facility]) Spinal stenosis of lumbar region with neurogenic claudication [facility]* Diagnosis Atherosclerotic heart disease of [place] coronary artery with other forms of angina pectoris [facility]* Diagnosis Chronic diastolic heart failure (CMS-HCC)- Primary Chronic diastolic heart failure Pulmonary hypertension (CMS-HCC) Other chronic pulmonary heart diseases Nonrheumatic tricuspid valve regurgitation [facility] Diagnosis Chronic heart failure with preserved ejection fraction (CMS-HCC)- Primary [facility] Diagnosis Chronic diastolic heart failure (CMS-HCC)- Primary Chronic diastolic heart failure [facility] Diagnosis Gastro-esophageal reflux disease without esophagitis [facility] Diagnosis Chronic heart failure with preserved ejection fraction (CMS-HCC) Atherosclerosis of [place] coronary artery of [place] heart without angina pectoris [facility] N[facility]ative - Reported* Type Description Date Medical History alcoholism Medical HistoryArthritisMedical HistoryemphysemaMedical Historygall bladder diseaseMedical Historyheart diseaseMedical Historyhigh cholesterolMedical Historymigraine headachesMedical HistoryobesityMedical HistorypneumoniaMedical Historypsychiatric disorderMedical Historychronic depressionMedical History anxietySurgical HistoryC sectionSurgical HistorytonsillectomySurgical History gall bladderSurgical Historybreast lump removed [id number] Historyopen heart surgeryHospitalization Historysee above surg. hx. [facility]ool Other Hospital Discharge instructionsNot on filedocumented in [...] be sent through Care Everywhere. 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[place]) [facility]Not on [...] December 3:14pm TypeDate RecordedPatient RepresentativeExplanationDurable Power of Electrical Superintendent 05/15/2023 8:14 AMLiving Will12/19/2021 11:54 AMLIVING WILLLiving Will11/22/2021 1:59 PMDurable Power of Attorney11/22/2021 1:58 PMDate ActivatedDate Inactivated Comments08/28/2023 4:38 AM08/29/2023 11:50 AMDate ActivatedDate InactivatedComments 08/28/2023 4:09 AM08/28/2023 4:38 AMDate ActivatedDate InactivatedComments07/25/2023 9:03 PM07/27/2023 4:44 PMDate ActivatedDate InactivatedComments05/28/2023 1:53 AM 05/28/2023 12:27 PMDate ActivatedDate ShkgjulwkovXfdqokwu22/19/2023 10:09 PM 04/29/2023 6:44 PMDate ActivatedDate InactivatedComments07/25/2023 9:03 PM07/27/2023 4:44 PMDate ActivatedDate InactivatedComments05/28/2023 1:53 AM05/28/2023 12:27 PM Date ActivatedDate SjvbcikptoxZhufkbzr53/19/2023 10:09 PM04/29/2023 6:44 PMDate ActivatedDate InactivatedComments08/06/2020 11:59 AM08/23/2020 3:53 PMDate ActivatedDate InactivatedComments08/06/2020 11:59 AM08/06/2020 11:59 AMTypeDate RecordedPatient RepresentativeExplanationDurable Power of Attorney05/15/2023 8:14 AMLiving Will12/19/2021 11:54 AMLIVING WILLLiving Will11/22/2021 1:59 PMDurable Power of Attorney11/22/2021 1:58 PMDate ActivatedDate InactivatedComments 07/25/2023 9:03 PM07/27/2023 4:44 PMDate ActivatedDate InactivatedComments05/28/2023 1:53 AM05/28/2023 12:27 PMDate ActivatedDate XtuldzbmgqaFppmsifc00/19/2023 10:09 PM04/29/2023 6:44 PMDate ActivatedDate InactivatedComments08/06/2020 11:59 [...] ActivatedDate InactivatedComments05/28/2023 1:53 AM05/28/2023 12:27 PMDate ActivatedDate FdckjuzjntkCdsnnbgk09/19/2023 10:09 PM04/29/2023 6:44 PMCode StatusDate Activated Date [...] care provider Rajni Steiner, DO [address] [place] [address] Referral IDStatusReasonStart DateExpiration DateVisits RequestedVisits [id number] Review/[id number] / ProceduresReferred By ContactReferred To Contact Procedures Adult diet Rajni Steiner, DO [address] [place] [address] Referral IDStatusReasonStart DateExpiration DateVisits RequestedVisits [id number] Review/[id number] / ProceduresReferred By ContactReferred To [facility] Diagnoses Chronic heart failure with preserved ejection fraction [place] Rajni Steiner, DO [address] [place] [address] [facility] [id number] [place] [id number] Phone: [phone] Fax: [phone] Referral IDStatusReasonStart DateExpiration DateVisits RequestedVisits [id number] Review Patient Preference /[id number] / ProceduresReferred By ContactReferred To Contact Diagnoses BONY treated with BiPAP Procedures Split Night Sleep Study Grace Meadows DO [address] [address] Referral IDStatusReasonStart DateExpiration DateVisits RequestedVisits [id number] Review/[id number] / ProceduresReferred By ContactReferred To Contact Diagnoses BONY (obstructive sleep apnea) Hypoxemia associated with sleep Procedures Polysomnography 4 or more parameters with PAP titration Grace Meadows DO [address] [facility] [address] [place] [address] Referral IDStatusReasonStart DateExpiration DateVisits RequestedVisits [id number] Review/[id number] / ProceduresReferred By ContactReferred To Contact Diagnoses Trigger point of left side of body Procedures Trigger Point Injection (CPT [address] or 8[address]): left gluteus tej [facility] [address] [facility] [address] [place] [address] Referral IDStatusReasonStart DateExpiration DateVisits RequestedVisits [id number]/3/20243/[id number] / Procedures Referred By ContactReferred To ContactOrthopaedic Surgery Diagnoses Left shoulder pain, unspecified chronicity Procedures L Inj/Asp: L subacromial bursa Eusebia Huertas, DO [address] [facility] [address] [place] [address] Referral IDStatusReasonStart DateExpiration DateVisits RequestedVisits [id number]/1/20243/ Additional Source Comments INFORMATION SOURCE (unrecogn ized section and content) DATE CREATED AUTHOR 02/03/2018 [facility] DATE CREATED AUTHOR AUTHOR'S ORGANIZ ATION 12/21/2022 [facility] DATE CREATED AUTHOR AUTHOR'S ORGANIZ ATION 05/03/2023 [facility] DATE CREATED AUTHOR AUTHOR'S ORGANIZ ATION 07/10/2024 [facility] DATE CREATED AUTHOR AUTHOR'S ORGANIZ ATION 09/24/2024 [facility] DATE CREATED AUTHOR AUTHOR'S ORGANIZ ATION 12/17/2024 [facility] DATE CREATED AUTHOR AUTHOR'S ORGANIZ ATION 02/18/2025 [facility] DATE CREATED AUTHOR AUTHOR'S ORGANIZ ATION 02/24/2025 [facility] Care Teams (unrecognized sec tion and content) Team Status: Active Member Role Status Dates Saqib Fowler PA-C Primary Care Provider Activ e Team Status: Inactive Member Role Status Dates Saqib Fowler PA-C Primary Care Provider Activ e [facility] ProviderActiveTeam MemberRelationshipSpecialtyStart DateEnd Date Rajni Steiner MD [address] [place] [address] PCP - GeneralInternal Medicine08/11/23Team MemberRelationshipSpecialtyStart Date End Date Rajni Steiner MD [address] [place] [address] PCP - GeneralInternal Medicine08/11/23Team MemberRelationshipSpecialtyStart Date End Date Rajni Steiner MD [address] [place] [address] PCP - GeneralInternal Medicine08/11/23Team MemberRelationshipSpecialtyStart Date End Date Rajni Steiner MD [address] [place] [address] PCP - GeneralInternal Medicine08/11/23Team MemberRelationshipSpecialtyStart Date End Date Rajni Steiner MD [address] [place] [address] PCP - GeneralInternal Medicine08/11/23Team MemberRelationshipSpecialtyStart Date End Date Rajni Steiner MD [address] [place] [address] PCP - GeneralInternal Medicine08/11/23Team MemberRelationshipSpecialtyStart Date End Date Rajni Steiner MD [address] [place] [address] PCP - GeneralInternal Medicine08/11/23Team MemberRelationshipSpecialtyStart Date End Date Rajni Steiner MD [address] [place] [address] PCP - GeneralInternal Medicine08/11/23Team MemberRelationshipSpecialtyStart Date End Date Rajni Steiner MD [address] [place] [address] PCP - GeneralInternal Medicine08/11/23Team MemberRelationshipSpecialtyStart Date End Date Rajni Steiner DO [address] [place] [address] PCP - GeneralInternal Medicine12/17/23Team MemberRelationshipSpecialtyStart Date End Date Rajni Steiner DO [address] [place] [address] PCP - GeneralInternal Medicine12/17/23Team MemberRelationshipSpecialtyStart Date End Date Rajni Steiner DO [address] [place] [address] PCP - GeneralInternal Medicine07/01/23Team MemberRelationshipSpecialtyStart Date End Date Rajni Steiner DO [address] [place] [address] PCP - GeneralInternal Medicine07/01/23Team MemberRelationshipSpecialtyStart Date End Date Rajni Steiner DO [address] [place] [address] PCP - GeneralInternal Medicine07/01/23Team MemberRelationshipSpecialtyStart Date End Date Rajni Steiner DO [address] [place] [address] PCP - GeneralInternal Medicine07/01/23Team MemberRelationshipSpecialtyStart Date End Date Vickyumair Rajni DO Janae [address] [place] [address] PCP - GeneralInternal Medicine08/24/23Team MemberRelationshipSpecialtyStart Date End Date Vickyumair Rajni Janae DO [address] [place] [address] PCP - GeneralInternal Medicine08/24/23Team MemberRelationshipSpecialtyStart Date End Date Vickyumair Rajni DO Janae [address] [place] [address] PCP - GeneralInternal Medicine08/24/23Team MemberRelationshipSpecialtyStart Date End Date No Pcp, [place] [address] PCP - GeneralFamily Wskhfton49/18/23Team MemberRelationshipSpecialtyStart Date End Date No Pcp, [place] [address] PCP - GeneralFamily Pcfklqyv57/18/23Team MemberRelationshipSpecialtyStart Date End Date Rajni Steiner DO [address] [place] [address] PCP - GeneralInternal Medicine08/24/23Team MemberRelationshipSpecialtyStart Date End Date Rajni Steiner DO [address] [place] [address] PCP - GeneralInternal Medicine08/24/23Team MemberRelationshipSpecialtyStart Date End Date Rajni Steiner DO [address] [place] [address] PCP - GeneralInternal Medicine08/24/23Team MemberRelationshipSpecialtyStart Date End Date Rajni Steiner DO [address] [place] [address] PCP - GeneralInternal Medicine08/24/23Team MemberRelationshipSpecialtyStart Date End Date No Pcp, [place] [address] PCP - GeneralFamily Ybwokztn64/18/23Team MemberRelationshipSpecialtyStart Date End Date Rajni Steiner DO [address] [place] [address] PCP - GeneralInternal Medicine08/24/23Team MemberRelationshipSpecialtyStart Date End Date Rajni Steiner DO [address] [place] [address] PCP - GeneralInternal Medicine08/24/23Team MemberRelationshipSpecialtyStart Date End Date No Pcp, [place] [address] PCP - GeneralFamily Wdglxyoe76/18/23Team MemberRelationshipSpecialtyStart Date End Date No Pcp, [place] [address] PCP - GeneralFamily Kvdxlodm27/18/23Team MemberRelationshipSpecialtyStart Date End Date Rajni Steiner DO [address] [place] [address] PCP - GeneralInternal Medicine08/24/23Team MemberRelationshipSpecialtyStart Date End Date No Pcp, [place] [address] PCP - GeneralFamily Hnnuiqzd91/18/23Team MemberRelationshipSpecialtyStart Date End Date Rajni Steiner DO [address] [place] [address] PCP - GeneralInternal Medicine07/01/23Team MemberRelationshipSpecialtyStart Date End Date Rajni Steiner DO [address] [place] [address] PCP - GeneralInternal Medicine07/01/23Team MemberRelationshipSpecialtyStart Date End Date Rajni Steiner DO [address] [place] [address] PCP - GeneralInternal Medicine08/24/23Team MemberRelationshipSpecialtyStart Date End Date Rajni Steiner DO [address] [place] [address] PCP - GeneralInternal Medicine08/24/23Team MemberRelationshipSpecialtyStart Date End Date Rajni Steiner DO [address] [place] [address] PCP - GeneralInternal Medicine07/01/23Team MemberRelationshipSpecialtyStart Date End Date Rajni Steiner Janae DO [address] [place] [address] PCP - GeneralInternal Medicine07/01/23Team MemberRelationshipSpecialtyStart Date End Date Rajni Steiner DO [address] [place] [address] PCP - GeneralInternal Medicine12/17/23Team MemberRelationshipSpecialtyStart Date End Date Rajni Steiner DO [address] [place] [address] PCP - GeneralInternal Medicine12/17/23Team MemberRelationshipSpecialtyStart Date End Date Rajni Steiner, DO [address] [place] [address] PCP - GeneralInternal Medicine07/01/23Team MemberRelationshipSpecialtyStart Date End Date Rajni Steiner, DO [address] [place] [address] PCP - GeneralInternal Medicine12/17/23Team MemberRelationshipSpecialtyStart Date End Date Rajni Steiner, DO [address] [place] [address] PCP - GeneralInternal Medicine12/17/23Team MemberRelationshipSpecialtyStart Date End Date Rajni Steiner, DO [address] [place] [address] PCP - GeneralInternal Medicine12/17/23Team MemberRelationshipSpecialtyStart Date End Date Rajni Steiner DO [address] [place] [address] PCP - GeneralInternal Medicine12/17/23Team MemberRelationshipSpecialtyStart Date End Date Rajni Steiner DO [address] [place] [address] PCP - GeneralInternal Medicine12/17/23Team MemberRelationshipSpecialtyStart Date End Date Rajni Steiner DO [address] [place] [address] PCP - GeneralInternal Medicine12/17/23Team MemberRelationshipSpecialtyStart Date End Date Rajni Steiner DO [address] [place] [address] PCP - GeneralInternal Medicine12/17/23Team MemberRelationshipSpecialtyStart Date End Date Rajni Steiner, DO [address] [place] [address] PCP - GeneralInternal Medicine12/17/23Team MemberRelationshipSpecialtyStart Date End Date Rajni Steiner, DO [address] [place] [address] PCP - GeneralInternal Medicine12/17/23Team MemberRelationshipSpecialtyStart Date End Date Rajni Steiner MD PCP - GeneralInternal Medicine08/11/23Team MemberRelationshipSpecialtyStart Date End Date Rajni Steiner MD PCP - GeneralInternal Medicine08/11/23Team MemberRelationshipSpecialtyStart Date End Date Rajni Steiner DO [address] [place] [address] PCP - GeneralInternal Medicine12/17/23Team MemberRelationshipSpecialtyStart Date End Date Rajni Steiner DO [address] [place] [address] PCP - GeneralInternal Medicine12/17/23Team MemberRelationshipSpecialtyStart Date End Date Rajni Steiner DO [address] [place] [address] PCP - GeneralInternal Medicine12/17/23Team MemberRelationshipSpecialtyStart Date End Date Rajni Steiner DO [address] [place] [address] PCP - GeneralInternal Medicine12/17/23Team MemberRelationshipSpecialtyStart Date End Date Rajni Steiner DO [address] [place] [address] PCP - GeneralInternal Medicine12/17/23Team MemberRelationshipSpecialtyStart Date End Date Rajni Steiner DO [address] [place] [address] PCP - GeneralInternal Medicine12/17/23Team MemberRelationshipSpecialtyStart Date End Date Rajni Steiner MD PCP - GeneralInternal Medicine08/11/23Team MemberRelationshipSpecialtyStart Date End Date Rajni Steiner DO [address] [place] [address] PCP - GeneralInternal Medicine12/17/23Team MemberRelationshipSpecialtyStart Date End Date Rajni Steiner DO [address] [place] [address] PCP - GeneralInternal Medicine12/17/23Team MemberRelationshipSpecialtyStart Date End Date Rajni Steiner DO [address] [place] [address] PCP - GeneralInternal Medicine12/17/23Team MemberRelationshipSpecialtyStart Date End Date Rajni Steiner DO [address] [place] [address] PCP - GeneralInternal Medicine12/17/23Team MemberRelationshipSpecialtyStart Date End Date Rajni Steiner DO [address] [place] [address] PCP - GeneralInternal Medicine12/17/23 Goals (unrecognized section and content) Goals may be documented in a n alternate sectionNo Information REASON FOR VISIT (unrecogniz ed section and content) ReasonCommentsPainReasonCommentsChronic hypoxic respiratory failureConsultation ReasonCommentsFollow-upReasonOnset DateCommentsMed [id number] CommentsMed RefillReasonOnset DateCommentsMed [id number] Date CommentsSleep Lab4Pap OrderReasonCommentscompression fractor and leakage in legsReasonOnset DateCommentsMed [id number] month recheckReasonOnset DateCommentsMed [id number] Patient ReasonCommentsCoughCongestion,cough yellow, 1 weekReasonCommentsHospital Follow-upCOVID Pneumonia - Early AprilXR: 04/28/2023 and 05/27/2023 ReasonOnset DateCommentsSleep Lab06/25/2023Split NightReasonCommentsFollow-up1 monthReasonCommentsHyperlipidemiaHypertensionReasonCommentsShortness of Breath SpecialtyDiagnoses / ProceduresReferred By ContactReferred To Contact Diagnoses Shortness of breath Hypoxia COPD exacerbation (CMS-HCC) Acute respiratory failure with hypoxia and hypercapnia (CMS-HCC) Rajni Gimenez MD [address] [place] [address], [address] [place] [address] Referral IDStatusReasonStart DateExpiration DateVisits RequestedVisits [id number] / ProceduresReferred By ContactReferred To Contact Diagnoses BONY (obstructive sleep apnea) Hypoxemia associated with sleep Procedures Polysomnography 4 or more parameters [place] [address] [place] [address] Referral IDStatusReasonStart DateExpiration DateVisits RequestedVisits [id number]/19/20244/[id number]qaxe care SpecialtyDiagnoses / ProceduresReferred By ContactReferred To Contact Diagnoses BONY treated with BiPAP Procedures Split Night Sleep Study Grace Meadows, DO [address] [place] [address] Referral IDStatusReasonStart DateExpiration DateVisits RequestedVisits [id number]//[id number]vt HyperlipidemiaReasonOnset DateCommentsMed [id number] Date CommentsMed [id number] Change RequestReasonComments Follow-upEST PT F/U 4 MS L/S RDGReasonCommentsCOPDReasonCommentsControlled SubstanceReasonOnset DateCommentsMed Lwyqpl2707/15/2024ReasonCommentsFollow-upEST PT F/U 6 MS L/S TMPReasonCommentsSleep Apnea6 [...] BE BASED ON THE PRIMARY CLINICAL RECORDS. [facility] [employer] provides no warranty or guarantee of the accuracy or completeness of information in this document.
--- NOTE | 2025-04-05 10:55 | PM.CN ---
Consult Note: HPI Data of Consult Patient: known to practice within the last 3 years Consult date: 03/15/25 Requesting Physician: Harper Alvarez NP Primary Care Provider: RAJNI CARDOZO Consult Narrative Reason for consult: left shoulder pain and bilateral low back pain Narrative: Monet Recinos a pleasant 64 year old female with left shoulder pain and bilateral low back pain > 3 years unresponsive to > 6 weeks of PT/HEP, heat, ice, tylenol, nsaids presents for evaluation. pt noting increased SIJ pain, prior bilateral SIJ injection provided >50% improvement for at least 3 months but is now wearing off. utilizing tylenol, gabapentin 300mg tid, and lidocaine patches prn with benefit. pain today 0/10 in left shoulder, noting 100% improvement from left suprascapular and axillary nerve block while anesthetized and ongoing. however pt noting 9/10 sharp bilateral low back and SIJ pain without fall or injury. pain increasing with twsiting, standing, walking, lifting, bending, and activity. cc:: CC: Harper Alvarez NP [facility] Medical History Rheumatoid arthritis ?M06.9 - Rheumatoid arthritis, unspecified (ICD-10) Anemia ?D64.9 - Anemia, unspecified (ICD-10) Panic disorder ?F41.0 - Panic disorder [episodic paroxysmal anxiety] (ICD-10) PTSD (post-traumatic stress disorder) ?F43.10 - Post-traumatic stress disorder, unspecified (ICD-10) Bipolar 1 disorder ?F31.9 - Bipolar disorder, unspecified (ICD-10) Anxiety ?F41.9 - Anxiety disorder, unspecified (ICD-10) Acid reflux ?K21.9 - Gastro-esophageal reflux disease without esophagitis (ICD-10) BONY treated with BiPAP ?G47.33 - Obstructive sleep apnea (adult) (pediatric) (ICD-10) Sleep apnea ?G47.30 - Sleep apnea, unspecified (ICD-10) COPD (chronic obstructive pulmonary disease) ?J44.9 - Chronic obstructive pulmonary disease, unspecified (ICD-10) CHF (congestive heart failure) ?I50.9 - Heart failure, unspecified (ICD-10) Angina at rest ?I20.89 - Other forms of angina pectoris (ICD-10) Heart attack ?I21.9 - Acute myocardial infarction, unspecified (ICD-10) Surgical History Stented coronary artery ?Z95.5 - Presence of coronary angioplasty implant and graft (ICD-10) Hx of cholecystectomy ?Z90.49 - Acquired absence of other specified parts of digestive tract (ICD-10) H/O section ?Z98.891 - History of uterine scar from previous surgery (ICD-10) Hx of CABG ?Z95.1 - Presence of aortocoronary bypass graft (ICD-10) Social History Little interest or pleasure in doing things: not at all Feeling down, depressed, or hopeless: not at all Meds Home Medications and Allergies Home Medications ?Medication ?Instructions ?Recorded ?Confirmed ?Type clonazepam 0.5 mg tablet 1 mg PO DAILY 02/23/24 03/27/25 History empagliflozin 10 mg tablet 10 mg PO DAILY 02/23/24 03/27/25 History (Jardiance) topiramate 100 mg tablet (Topamax) 100 mg PO BID 02/23/24 03/27/25 History torsemide 40 mg tablet 160 mg PO DAILY 02/23/24 03/27/25 History albuterol sulfate 90 mcg/actuation 1 puff inhalation Q4H PRN 02/24/24 03/27/25 History aerosol inhaler shortness of breath or wheezing aripiprazole 15 mg tablet 15 mg PO BEDTIME 02/24/24 03/27/25 History budesonide 160 mcg-glycopyr 9 2 inh inhalation BID 02/24/24 03/27/25 History mcg-formot 4.8 mcg/actuation HFA inhaler (Breztri Aerosphere) lamotrigine 150 mg tablet 150 mg PO DAILY 02/24/24 03/27/25 History pantoprazole 40 mg tablet,delayed 40 mg PO DAILY 02/24/24 03/27/25 History release potassium chloride 20 mEq 20 meq PO DAILY 02/24/24 03/27/25 History tablet,extended release spironolactone 25 mg tablet 25 mg PO DAILY 02/24/24 03/27/25 History hydroxyzine HCl 25 mg tablet mg 11/14/24 History gabapentin 300 mg capsule 300 mg PO TID #90 caps 02/23/25 03/27/25 Rx vortioxetine 10 mg tablet 10 mg PO DAILY 02/23/25 03/27/25 History (Trintellix) gabapentin 300 mg capsule 300 mg PO TID #90 caps 03/30/25 Rx Allergies Allergy/AdvReac Type Severity Reaction Status Date / Time Penicillins Allergy Unknown Unknown Verified 03/27/25 10:10 Exam Constitutional Documenting provider has reviewed patient's vital signs: yes Common normals: no apparent distress, oriented x3 and alert General appearance: cooperative HENMT Common normals: normocephalic, hearing grossly normal bilaterally and moist oral mucous membranes Head and scalp: normocephalic Eye Common normals: PERRL Pupil: PERRL Neck & C-Spine Common normals: full ROM General: normal visual inspection Chest Common normals: inspection of chest normal Respiratory Common normals: normal respiratory effort, no retractions and no use of accessory muscles Back & Pelvis Lumbar spine/lower back: lumbar spinal tenderness; ROM not limited and no pain with ROM Sacroiliac joints: SI joint(s) abnormal Other: bilateral sij positive ariel(patricks), gaenslens, thigh thrust, compression test strength 5/5 in BLE Extremity Left upper extremity: shoulder joint Other: positive crossbody adduction, posterior liftoff, apleys scratch test, empty can. strength 5/5 in BUE. sensation intact BUE. no edema. full rom with extension and rotation, although moderately painful Neuro Common normals: oriented x3 Sensorium/orientation: alert Psych Common normals: mental status grossly normal, thought process normal, cooperative, affect normal, speech normal and activity/motor behavior normal Speech: normal speech Thought process: normal thought process Results Additional Findings Additional findings: If on a controlled substance or opioids, I have checked an [place] report on this patient and there are no aberrancies noted in the prescribing history.??If on a controlled substance or opioid a drug screen was completed and reviewed within the last year, and if there has not been a drug screen completed we ordered one today to monitor higher risk, state monitored pain medication use. As part of providing excellent, safe, comprehensive care, the following was completed at our patient's visit: 1. A medication reconciliation and review to ensure accurate knowledge of current/active medications, including asking our patients to inform us about any kdoc-tww-rkykvtp medications or herbal remedies/nutritional supplements/alternative remedies. 2. A review to specifically ensure our patients have had annual screening for screening for depression, screening for tobacco use, and screening for unhealthy alcohol use. For concerning screenings had a discussion with the patient, provided patient education, and recommended follow-up with primary care provider when appropriate. If patient noted with a risk of falling, they received education on strength, gait, and balance training to prevent future risk of falling. Portions of this note may have been carried over from the previous visit and updated as appropriate. Please note this office utilizes paper charting in addition to the electronic medical record. A list of current medications, vitals, and PMH is available there as the clinical staff outside of myself do not have access to [employer] charting during the clinic day operations. As part of providing quality comprehensive care the current medications, vitals, and PMH were reviewed in the paper chart. Assessment and Plan Assessment and Plan (1) Sacroiliitis: (2) Chronic left shoulder pain: (3) Osteoarthritis of left shoulder: Qualifiers: Osteoarthritis type: primary Qualified Code(s): M19.012 - Primary osteoarthritis, left shoulder Plan The patient has had over 3 months of moderate to severe left shoulder, upper back, low back, and bilateral SIJ pain with functional impairment and inadequate response to conservative care including NSAIDS (unless there are contraindication such as concurrent blood thinners), multiple oral or topical pain medications, and home exercise program/physical therapy.? Patient has completed >6 weeks of guided home exercise program and/or formal physical therapy program without relief of their symptoms.? The Oswestry Disability Index was completed, and the patient scored a 29%.? repeat bilateral SIJ injection under fluoroscopy as prior injection provided at least 50% improvement greater than 3 months but pain has worsened pending thoracic mri for evaluation of thoracic pain continue gabapentin 300mg TID, tolerating well without side effects defer left suprascapular/axillary nerve RFA at this time, can schedule when left shouledr pain worsenes f/u 2 weeks after SIJ injection
== END 2025-04-05 10:28 | disposition home or self-care (01) ==
LOC: PM 10:28
PROVIDERS: PCP Internal Medicine; Visit Provider Nurse Practitioner
DX: M46.1 Sacroiliitis, not elsewhere classified (principal); M25.512 Pain in left shoulder; M19.012 Primary osteoarthritis, left shoulder
CPT/HCPCS: G0463

== ENCOUNTER 2025-04-17 09:04 | Day surgery (SDC) | payer MEDICARE, MEDICAID, SELFPAY ==
--- OUTSIDE RECORDS SUMMARY | 2025-04-17 09:08 | XMS_ITS | Clinical Summary ---
Author Organization [facility] Healthcare Address [address] [place] [address] Care Team Providers Care Heat Treat Inspector Name Role Phone Michael Steiner MD Primary Care Provider Allergies Active AllergyReactionsCriticalityNoted DvmeStskrovdEnudofflNxujkn12/21/2025 Other Reaction(s): Other (See Comments) Terrible dreams ZqctageuStmldltzrmckbtHjqbzw49/05/2017 Other Reaction(s): Other (See Comments) I hallucinate This is not a true allergy HzqoykahcgwHxczmvzhlkaUogo11/12/2014 Swelling of Lip/Tongue/Throat Other Reaction(s): Swelling of [...] tablet Take 15 mg by mouth at hvadeew0501/29/2024ctive celecoxib (CeleBREX) 200 MG capsule 02/22/2024ctive hydrOXYzine [...] MOUTH IN THE MORNING AND BEFORE BEDTIMEActive WZN-Qvvp-IrHgsn-MgHydr-Simeth (First-Mouthwash BLM) suspension Take 5 mL by mouth 4 (four) times a day as yomome1001/10/2025tive furosemide (Lasix) 40 MG tablet Take 40 [...] tablet Take 25 mg by mouth at ughjamd4111/28/2024tive ondansetron ODT (Zofran-ODT) 4 MG disintegrating tablet DISSOLVE 1 TABLET (4 MG TOTAL) ON THE TONGUE EVERY 8 HOURS NEEDED FOR NAUSEA FOR UP TO 10 DOSES02/09/2025tive potassium chloride CR (K-Tab) 20 MEQ ER tablet TAKE 1 TABLET (20 MEQ TOTAL) BY MOUTH IN THE CMTLWTV9602/21/2025tive propranolol (Inderal) 40 MG tablet TAKE 1 TABLET (40 MG TOTAL) BY MOUTH IN THE MORNING AND BEFORE QLPDJZX3711/08/2024 Active valsartan (Diovan) 40 MG tablet Take 40 mg by mouth in the morning.5Active Trintellix 10 MG tablet Take 1 tablet by mouth Daily01/04/2025tive Fjklssx-Bixgfflnxnt-Noaajfwfco (Breztri Aerosphere) 160-9-4.8 MCG/ACT aerosol Indications:Chronic obstructive pulmonary disease, unspecified COPD type (HCC) Inhale 2 puffs in the morning and 2 puffs before bedtime. 10.7 g 5Active Active Problems ProblemNoted DateDiagnosed DateAcute pulmonary embolism without acute cor xbedxmojd32/03/2024losed wedge compression fracture of T6 vertebra with routine kvfglei7808/28/2023hronic respiratory failure with hypoxia and hypercapnia 07/25/2023annabis use disorder, mild, abuse05/28/2023Major depressive disorder 05/28/2023Morbid (severe) obesity due to excess kqcpoolg05/04/2024Muscle weakness (generalized)04/30/2023hronic obstructive pulmonary disease, touvzyoprfj25/03/6762Wolxkmftukw76/03/2024Iron deficiency anemia, unspecified 04/29/2023Migraine, unspecified, not intractable, without status migrainosus 04/29/2023anic aipjcoih78/03/2024Vitamin D deficiency, kdocdazsqju95/03/2024 Ztfhindpqqe08/27/2023ipolar 2 disorder, major depressive aizaxsn6710/21/2022ERD (gastroesophageal reflux disease)10/21/2022Essential wpqueknsqtfq70/02/2023Hx of npoffxpgystzjp69/02/2023OSA treated with BiPAP07/31/2022Liver tjwldzr5404/15/2022 Chronic heart failure with preserved ejection xefrbdah25/03/2022Hyperglycemia 08/14/2020ow back pain08/14/2020NSTEMI (non-ST elevated myocardial infarction) 01/09/20208537Rqmjdey34/03/2016Borderline personality yvbsqiwq05/03/2016PTSD (post- traumatic stress disorder)08/28/2015Chronic ahplbtas77/12/2015CAD S/P percutaneous coronary ihflnqhbntz39/12/2014 Overview (01/22/2024): Dr. Vickers at [facility] in [place] did PCI with bare metal stent placement 03/2010 Resolved Problems ProblemNoted DateDiagnosed DateResolved DateAtherosclerotic heart disease of seminole coronary artery with other forms of angina wsvmsyus05 Overview (03/08/2025): Noted by JULIANE Cardoso DO last documented on [id number] Chronic obstructive pulmonary disease with acute hztzsghvaudv84/12/2025 03/08/2025 Overview (03/08/2025): Noted by [facility] last documented on 20231217 Chronic kidney disease, stage 3a Overview (03/08/2025): Noted by JULIANE Cardoso DO last documented on [id number] Unspecified dementia, unspecified severity, with mood iociynlpfjb66/12/2025 03/08/2025 Overview (03/08/2025): Noted by [facility] last documented on 20231217 Esophageal ulcerHiatal azxrki83Microcytic ujaino95ute on chronic respiratory failure with hypoxia and bxrkvjiuoya54History of four vessel coronary artery bypass graftNonrheumatic tricuspid valve udtxonlkthknu17/04/2025 03/08/2025Pulmonary nieuebklyfwe95Ventricular tachycardia Overview (09/20/2024): Documented on 08/23/2020 Arthritis of left sacroiliac jointStage 3a chronic kidney igplpki88WeaknessObesity with body mass index 30 or fwrkpgm40Psoriasis, vuwqmgbrfdm94/06/2024 03/15/2024Unspecified dementia, mild, without behavioral disturbance, psychotic disturbance, mood disturbance, and qbzqsdt50OVID-19004/29/2023 03/15/2024ependence on other enabling machines and Personal history of nicotine oyidklputl93neumonia, unspecified cwfngfrq55olyneuropathy, infzasxdrxl33/03/2024 03/15/2024resence of aortocoronary bypass graftSolitary pulmonary sseeni01HyperlipidemiaNicotine sliblzfvhf43Difficulty in walking, not elsewhere classified Former fpvpbd21igarette nicotine dependence in mpzzgtqwm87therosclerosis of seminole coronary artery of seminole heart without angina omxuphcc68 Encounters DateTypeDepartmentCare QrphMcptvjqfzim78/14/2025bstract [facility] [address] [facility] [place] [address] Sydnie Guerrero DO 03/08/2025 3:15 PM ESTOffice Visit [facility] [place] [address] Sydnie Guerrero DO Chronic obstructive pulmonary disease, unspecified COPD type (HCC) (Primary Dx); Chronic respiratory failure with hypoxia and hypercapnia (HCC); BONY (obstructive sleep apnea)03/08/2025amboo flowsheet [facility] [address] [place] [address] Sydnie Guerrero DO 02/08/2025Telephone [address] [address] Sydnie Guerrero DO 01/25/2025Telephone [address] [address] Sydnie Guerrero DO 01/18/2025Telephone [facility] [address] [place] [address] Patricia Mcclure MA from Last 3 Months Immunizations ImmunizationAdministration DatesNext DuePPD Test05/12/2023,05/12/2023,04/30/2023 ,04/30/2023 Family History Medical HistoryRelationNameCommentsHeart diseaseMotherBettyHyperlipidemiaMother BettyRelationNameStatusCommentsFatherAliveMotherBettyDeceased Social History Tobacco UseTypesPacks/DayYears UsedDateSmoking Tobacco: FormerCigarettesQuit: mokeless Tobacco: Former Tobacco Cessation:Counseling Given: Not Answered Alcohol UseStandard Drinks/WeekCommentsNot Currently0 (1 standard drink = 0.6 oz pure alcohol)CommentsUnknownSex and Gender InformationValueDate Recorded Sex Assigned at BirthNot on fileLegal OhjFltxgv27/15/2023 11:01 PM EDTGender IdentityNot on fileSexual OrientationNot on file Last Filed Vital Signs Vital SignReadingTime TakenCommentsBlood Fzrcgnbe657/7203/08/2025 3:19 PM EST Tgjjz529403/08/2025 3:19 PM ESTTemperature--Respiratory Rate--Oxygen Mequunsfbd80% 03/08/2025 3:19 PM ESTInhaled Oxygen Concentration--Sqmqse375 kg (244 lb) 03/08/2025 3:19 PM EIRCpeztp027.3 cm (5' 9 )03/08/2025 3:19 PM ESTBody Mass Index36.03105/08/2024 3:19 PM EST Plan of Treatment DateTypeDepartmentCare Team (Latest Contact Info)Wgcburjskzd35/04/2026 3:30 PM ESTOffice Visit [facility] [address] [place] [phone] Sydnie Guerrero, DO [address] [place] [address] Insurance Care Teams Team MemberRelationshipSpecialtyStart DateEnd Michael Steiner MD [address] [place] [address] PCP - GeneralInternal Medicine08/11/23
[2025-04-17 09:16] VITALS: BP 104/68; PULSE 78; TEMP 36.6; O2SAT 91
[2025-04-17 09:54] VITALS: BP 104/55; BP 94/50; PULSE 61; PULSE 67; O2SAT 93
[2025-04-17] MEDS: BUPIVACAINE HCL 0.25% PF 25 MG/10 ML VIAL 4 ML INJ (09:56)
[2025-04-17] MEDS: LIDOCAINE HCL 2% 400 MG/20 ML MDV INJ (09:56)
[2025-04-17] MEDS: METHYLPREDNISOLONE ACETATE 40 MG/ML VIAL 80 MG INJ (09:56)
[2025-04-17] MEDS: IOHEXOL 240 MG/ML - 10 ML VIAL 24 MG INJ (09:56)
--- NOTE | 2025-04-17 10:05 | W.PM.PROCNOT ---
Date of procedure: 04/17/25 Pre-op diagnosis: Pain due to bilateral sacroiliitis Post-op diagnosis: same as pre-op Procedure: Procedure: Bilateral sacroiliac joint injection Medications: Bupivacaine 0.25% 4cc, depomedrol 40mg After informed consent was obtained, the patient was brought to the medical procedure unit and placed in the prone position, when a timeout was completed verifying correct patient, procedure, site, positioning, implant, and/or special equipment.? The skin overlying the area was prepped and draped in standard sterile fashion using alcohol.? A 25-gauge needle was inserted towards the left sacroiliac joint under direct fluoroscopic imaging.? Needle tip was advanced until the joint was encountered.? We instilled a total of 2 mL of solution.? The same procedure was then completed on the right side.? Postoperatively needles were removed.? The patient tolerated the procedure well without complication.? The patient reported reduction in pain symptoms postoperatively. Anesthesia: Local Surgeon: Ligia Root Pathology: none sent Condition: stable Disposition: no change
== END 2025-04-17 10:01 | disposition home or self-care (01) ==
LOC: SURGOUT 09:05
PROVIDERS: PCP Internal Medicine; Visit Provider Anesthesiology
DX: M46.1 Sacroiliitis, not elsewhere classified (principal); G89.29 Other chronic pain
CPT/HCPCS: 27096; J0665; J1010; Q9966